=== PATIENT | female | born 1960 | race Caucasian/White ===

== ENCOUNTER 2022-09-04 09:40 | Outpatient (RCR) | payer MEDICARE, SELFPAY | END 2022-09-06 11:51 | disposition home or self-care (01) | LOC: PT 09:40 | PROVIDERS: PCP Nurse Practitioner; Visit Provider Anesthesiology Pain Medicine | DX: S93.621D Sprain of tarsometatarsal ligament of right foot, subsequent encounter (principal); M79.671 Pain in right foot | CPT/HCPCS: 97035; 97110; 97113; 97140; 97162; 97530; G0283 ==

== ENCOUNTER 2022-09-04 12:23 | Outpatient (OUT) | payer MEDICARE, SELFPAY ==
--- NOTE | 2022-09-04 12:52 | PM.CN ---
Consult Note: HPI Data of Consult Patient: known to practice within the last 3 years Consult date: 09/04/22 Requesting Physician: ARIAN JOHNSON NP Primary Care Provider: Adelaida Carrion Consult Narrative Reason for consult: low back pain Narrative: Nasim is here for f/u to MBB lumbar area done 08/08/22. She received 80% relief of pain with increased function for several hours after procedure. She would like to proceed with the RFA. No new sensorimotor sx or bowel or bladder issues. cc:: CC: ARIAN JOHNSON NP Review of Systems ROS Status of ROS 10 or more systems reviewed and unremarkable except as noted in history and below Exam Constitutional: Common normals: no apparent distress, average body habitus, oriented x3, no limitations, healthy appearing, alert and well nourished General appearance: cooperative, comfortable and well developed Nutritional appearance: overweight Orientation/consciousness: Yes awake, Yes oriented to person, Yes oriented to place and Yes oriented to time HENMT: Common normals: normocephalic and head/scalp atraumatic Head and scalp: normal to inspection Nose: external nose normal Mouth: oral and palatal mucosa normal Neck & C-Spine: Common normals: full ROM General: normal visual inspection Respiratory: Common normals: normal respiratory effort, no retractions and no use of accessory muscles Effort & inspection: able to speak in complete sentences Back & Pelvis: Lumbar spine/lower back: normal to inspection, pain with ROM, paraspinal muscle tenderness, paraspinal muscle spasm, straight leg raise positive right and other soft tissue findings (positive facet loading right, no radiculopathy) Sacroiliac joints: SI joints normal Extremity: Common normals: normal to inspection, full ROM and normal capillary refill Other: muscle strength bilat LE 5/5 with intact sensation Skin: Common normals: no rashes or lesions noted and no wounds Assessment and Plan Assessment and Plan (1) Lumbar spondylosis: (2) Muscle spasm: Plan schedule thermal RFA right lumbar L4/5, L5/S1 under fluoroscopy
== END 2022-09-04 12:24 ==
PROVIDERS: PCP Nurse Practitioner; Visit Provider Nurse Practitioner
DX: M47.816 Spondylosis without myelopathy or radiculopathy, lumbar region (principal); M62.838 Other muscle spasm
CPT/HCPCS: G0463

== ENCOUNTER 2022-09-06 00:06 | Emergency (ER) | payer MEDICARE, SELFPAY ==
[2022-09-06 00:13] VITALS: BP 148/81; PULSE 81; RESP 18; TEMP 36.7; O2SAT 98
--- NOTE | 2022-09-06 00:20 | XR_ITS ---
The [address] [address] Patient Name: MICHELLE BE MRN: [id number] date: 1960 Sex: F Assigned Patient Location: ER Current Patient Location: ER Accession/Order Number: [id number] Exam Date: 09/06/2022 00:45 Report Date: 09/06/2022 01:31 At the request of: GILMER NEVES Procedure: XR foot RT min 3V PLAIN FILM FOOT RIGHT HISTORY: 61-year-old female with right foot pain TECHNIQUE: 3 views of the foot are submitted for review. COMPARISON: None available FINDINGS: Evaluation for Lisfranc injury is limited given the lack of standing views. Degenerative changes seen involving joint spaces. Bone mineralization is within normal. Soft tissues are edematous, greatest overlying the metatarsophalangeal joint space of the great toe. There is spurring of the inferior calcaneus as well as the Achilles tendon insertion site. There is no evidence for acute fracture. IMPRESSION: 1. Soft tissue swelling greatest overlying the metatarsophalangeal joint space of the right great toe. 2. No plain film evidence for acute fracture to the foot. Electronically authenticated by: POLO BARLOW Date: 09/06/2022 01:31
--- NOTE | 2022-09-06 02:08 | ED.LOWEXI1 ---
HPI - Extremity Injury (Lower) General Stated Complaint: RIGHT FOOT INJURY Time Seen by Provider: 09/06/22 02:08 Source: patient Mode of arrival: walk-in Limitations: no limitations History of Present Illness HPI Narrative: history of arthritis of her right foot. Walking down the stairs in her home and hyper plantar flexed the foot. [place] a pop now has pain and swelling. Increased pain with weight bearing. No numbness or weakness complaint: Reports foot injury Onset (ago): hour(s) Injury: Right: foot Type of Injury: Reports hyperflexion Related Data Allergies Allergy/AdvReac Type Severity Reaction Status Date / Time levetiracetam [From Keppra] Allergy Severe Verified 09/06/22 00:19 adhesive Allergy Intermediate Blister Verified 09/06/22 00:19 Penicillins Allergy Intermediate Verified 09/06/22 00:19 tetracycline Allergy Intermediate Verified 09/06/22 00:19 milnacipran [From Savella] AdvReac Intermediate Agitated Verified 09/06/22 00:19 prochlorperazine AdvReac Intermediate Agitated Verified 09/06/22 00:19 [From Compazine] Review of Systems ROS Status of ROS 10 or more systems reviewed and unremarkable except as noted in history and below [facility] Medical History (Updated 09/06/22 @ 02:18 by Torin Slater MD) Surgical History (Updated 09/04/22 @ 14:46 by Tamika Deng) Social History Smoking status: Former smoker Exam Constitutional: Vital Signs - 24 hr 09/06/22 00:13 Temperature 98.1 F Pulse Rate [Monito r] 81 Respiratory Rate 18 Blood Pressure [Le ft Arm] 148/81 H Pulse Oximetry 98 Oxygen Delivery Me thod Room Air Common normals: no apparent distress HENMT: Common normals: normocephalic Eye: Common normals: EOMs intact bilaterally and conjunctivae normal Neck & C-Spine: Common normals: full ROM Chest: Common normals: inspection of chest normal Respiratory: Common normals: normal respiratory effort and clear to auscultation bilaterally Cardio: Common normals: regular rhythm GI: Common normals: Normal to inspection, nondistended, normoactive bowel sounds present Extremity: Other: mild swelling dorsum right foot. mild tenderness Neuro: Common normals: oriented x3 and CN's II-XII intact bilaterally Psych: Common normals: mental status grossly normal Skin: Common normals: no rashes or lesions noted and no wounds Course Vital Signs Vital signs: Vital Signs Temperature 98.1 F 09/06/22 00:13 Pulse Rate 81 09/06/22 00:13 Respiratory Rate 18 09/06/22 00:13 Blood Pressure 148/81 H 09/06/22 00:13 Pulse Oximetry 98 09/06/22 00:13 Oxygen Delivery Method Room Air 09/06/22 00:13 Temperature 98.1 F 09/06/22 00:13 Pulse Rate 81 09/06/22 00:13 Respiratory Rate 18 09/06/22 00:13 Blood Pressure 148/81 H 09/06/22 00:13 Pulse Oximetry 98 09/06/22 00:13 Oxygen Delivery Method Room Air 09/06/22 00:13 MDM - Extremity Injury (Lower) MDM Narrative Medical decision making narrative: patient presents after hyper extension injury to the right foot. Has swelling of the foot. Increased pain with weight bearing. xray without fracture. Patient placed in a cam boot and provided with crutches to assist ambulation. Discharged home to follow up with her PCP Discharge Plan Discharge Clinical Impression: Right foot sprain Mode of Transportation: Private Vehicle Instructions: Foot Sprain (ED) Stand Alone Forms: Portal Instructions Referrals: Adelaida Carrion [Primary Care Provider] - 1 week Follow Up Appointments: follow up with your family doctor next week
[2022-09-06] MEDS: KETOROLAC TROMETHAMINE 60 MG/2 ML VIAL IM (03:13)
--- NOTE | 2022-09-06 03:27 | PC.NURSE ---
Patient medicated. Then surgical boot placed and crutch training completed. Circulation intact prior to and after boot placement. Explained follow up and elevation with ice applied.
== END 2022-09-06 03:29 | disposition home or self-care (01) ==
PROVIDERS: Emergency Provider Internal Medicine; PCP Nurse Practitioner
DX: S93.601A Unspecified sprain of right foot, initial encounter (principal); X50.9XXA Other and unspecified overexertion or strenuous movements or postures, initial encounter; Z87.891 Personal history of nicotine dependence
CPT/HCPCS: 73630; 96372; 99284

== ENCOUNTER 2022-09-10 09:32 | Outpatient (OUT) | payer MEDICARE, SELFPAY ==
--- NOTE | 2022-09-10 10:12 | XR_ITS ---
The [address] [address] Patient Name: MICHELLE BE MRN: [id number] date: 1960 Sex: F Assigned Patient Location: [facility] Current Patient Location: Accession/Order Number: [id number] Exam Date: 09/10/2022 10:12 Report Date: 09/10/2022 16:16 At the request of: BRIDGETTE MACEDO Procedure: XR foot RT min 3V PROCEDURE: XR foot RT min 3V HISTORY: RIGHT FOOT PAIN ; medial forefoot pain after falling; follow-up COMPARISON: XR foot right 09/06/2022 FINDINGS: BONES:No fracture, dislocation, or significant degenerative joint disease. Calcaneal degenerative enthesophytes. SOFT TISSUES:No visible soft tissue swelling. EFFUSION:None visible. OTHER: Negative. IMPRESSION: 1. No acute bone abnormality or significant degenerative changes. Electronically authenticated by: KINGSLEY CLEMENTS Date: 09/10/2022 16:16
== END 2022-09-10 09:33 ==
LOC: RAD 09:32
PROVIDERS: PCP Nurse Practitioner; Visit Provider Podiatrist Foot & Ankle Surgery
DX: M79.671 Pain in right foot (principal)
CPT/HCPCS: 73630

== ENCOUNTER 2022-09-15 10:06 | Outpatient (OUT) | payer MEDICARE, SELFPAY ==
--- NOTE | 2022-09-15 10:14 | MM_ITS ---
Patient: MICHELLE BE Exam Date: 09/15/2022 : 1960 Gender:F Ordering : LIVIER Adelaida Carrion DIRECTOR COLLEGE Admission #: [id number] Family : Order #: [id number] CLICK HERE TO VIEW EXAM RADIOLOGY REPORT PROCEDURE: MM TOMOSYNTHESIS SCREENING BI COMPARISON: MG MAMM SCREEN 3D BHUMI CAD, 06/20/2021. MG MAMM SCREEN BHUMI W CAD, 05/18/2020. MG MAMM SCREEN BHUMI W CAD, 05/10/2019. MG MAMM BHUMI SCRN W CAD DIG, 02/15/2013. INDICATIONS: Screening mammogram (Z12.31) Calculator Name NCI Breast Cancer Risk Assessment Tool 5 Year Breast Cancer Risk 2.10% Lifetime Breast Cancer Risk 10.60% Personal Breast Cancer No Personal Ovarian Cancer No Treatments None Family Cancers None LOCATION: [facility] BREAST COMPOSITION: Scattered areas fibroglandular density. FINDINGS: DIAGNOSTIC CATEGORY 2--BENIGN FINDING: RIGHT BREAST: No significant suspicious finding. Scattered benign-appearing calcifications are present. No significant change has occurred. LEFT BREAST: No significant suspicious finding. Scattered benign-appearing calcifications are present. No significant change has occurred. RECOMMENDATIONS: ROUTINE MAMMOGRAM AND CLINICAL EVALUATION IN 12 MONTHS. PLEASE NOTE: A NORMAL MAMMOGRAM DOES NOT EXCLUDE THE POSSIBILITY OF BREAST CANCER. A CLINICALLY SUSPICIOUS PALPABLE LUMP SHOULD BE BIOPSIED. Dictated by: Jace Dhillon M.D. on 09/16/2022 at 13:43 Approved by: Jace Dhillon M.D. on 09/16/2022 at 13:47
--- NOTE | 2022-09-15 10:14 | XR_ITS ---
[address] [address] Patient Name: MICHELLE BE MRN: [id number] date: 1960 Sex: F Assigned Patient Location: [facility] Current Patient Location: [facility] Accession/Order Number: [id number] Exam Date: 09/15/2022 10:35 Report Date: 09/15/2022 12:08 At the request of: EDUAR MOYER Procedure: XR DEXA axial skeleton EXAMINATION: XR DEXA axial skeleton HISTORY: Osteoporosis (M81.0) COMPARISON: DEXA bone densitometry 05/18/2020 TECHNIQUE: Dual-energy X-ray absorptiometry (DXA) was performed. FINDINGS: FOREARM ANALYSIS: Average bone mineral density is 0.901 g/cm2. T-score (standard deviation relative to young adult mean): -1.0 . -7.1% change since prior study. HIP ANALYSIS: Lowest bone mineral density is within the femoral neck, 0.923 g/cm2. T-score (standard deviation relative to young adult mean): -0.8 . +1.9% change since prior study. IMPRESSION: World [employer] Organization Classification: Normal - Low Fracture Risk Electronically authenticated by: KINGSLEY CLEMENTS Date: 09/15/2022 12:08
== END 2022-09-15 10:07 ==
LOC: RAD 10:06
PROVIDERS: PCP Nurse Practitioner; Visit Provider Nurse Practitioner
DX: Z12.31 Encounter for screening mammogram for malignant neoplasm of breast (principal); M81.0 Age-related osteoporosis without current pathological fracture
CPT/HCPCS: 77063; 77067; 77080

== ENCOUNTER 2022-09-16 09:42 | Outpatient (RCR) | payer MEDICARE, SELFPAY | END 2022-10-29 13:39 | disposition home or self-care (01) | LOC: PT 09:42 | PROVIDERS: PCP Nurse Practitioner; Visit Provider Podiatrist Foot & Ankle Surgery | DX: S93.621D Sprain of tarsometatarsal ligament of right foot, subsequent encounter (principal); M79.671 Pain in right foot | CPT/HCPCS: 97010; 97014; 97035; 97110; 97112; 97140; 97162; 97530; G0283 ==

== ENCOUNTER 2022-10-14 11:11 | Outpatient (OUT) | payer MEDICARE, SELFPAY ==
[2022-10-14 12:36] LABS: Anion Gap 13.9; BUN Creatinine Ratio 17.2; Calcium 9.4 mg/dL (8.5-10.1); Carbon Dioxide 27.1 mmol/L (21.0-32.0); Chloride 105 mmol/L (98-107); Estimated GFR (African America >60 (>=60); Estimated GFR (Non-African Ame >60 (>=60); Glucose 99 mg/dL (74-106); Sodium 141 mmol/L (136-145)
== END 2022-10-14 11:12 | disposition home or self-care (01) ==
LOC: LAB 11:14
PROVIDERS: PCP Nurse Practitioner; Visit Provider Personal Emergency Response Attendant
DX: G47.30 Sleep apnea, unspecified (principal)
CPT/HCPCS: 36415; 80048

== ENCOUNTER 2022-10-15 10:17 | Outpatient (OUT) | payer MEDICARE, SELFPAY ==
--- NOTE | 2022-10-15 | ECG_ITS ---
[facility] Test Date: 2022-10-15 Pat Name: MICHELLE BE Department: Room: - Gender: Female Location Manager: : 1960 Requested By: KALLI HARRY Order Number: [id number] Reading MD: DANII BRODY Measurements Intervals [place] Rate: 69 P: 58 VT: 142 QRS: 70 QRSD: 110 T: 53 QT: 378 QTc: 407 Interpretive Statements SINUS RHYTHM POSSIBLE RIGHT VENTRICULAR CONDUCTION DELAY [RSR (QR) IN V1/V2] No previous ECG available for comparison Electronically Signed On 10-16-2022 7:10:33 EDT by DANII BRODY
== END 2022-10-15 10:18 | disposition home or self-care (01) ==
LOC: CARD 10:19
PROVIDERS: PCP Nurse Practitioner
DX: Z86.73 Personal history of transient ischemic attack (TIA), and cerebral infarction without residual deficits (principal)
CPT/HCPCS: 93005

== ENCOUNTER 2022-11-11 06:46 | Day surgery (SDC) | payer MEDICARE, SELFPAY ==
[2022-11-11 07:22] VITALS: BP 166/93; PULSE 87; RESP 16; TEMP 36.2; O2SAT 98
[2022-11-11] MEDS: 0.9 % SODIUM CHLORIDE 500 ML IV (07:28)
[2022-11-11] MEDS: BUPIVACAINE HCL 0.25% PF 25 MG/10 ML VIAL 4 ML INJ (07:39)
[2022-11-11] MEDS: METHYLPREDNISOLONE ACETATE 40 MG/ML VIAL INJ (07:39)
[2022-11-11] MEDS: LIDOCAINE HCL 2% 400 MG/20 ML MDV 8 ML INJ (07:39)
[2022-11-11 07:55] VITALS: BP 118/82; PULSE 71; RESP 16; TEMP 36.2; O2SAT 97
[2022-11-11 07:59] VITALS: BP 121/76; PULSE 77; RESP 16; TEMP 36.2; O2SAT 98
--- NOTE | 2022-11-11 10:05 | W.PM.PROCNOT ---
Date of procedure: 11/11/22 Pre-op diagnosis: lumbar spondylosis Post-op diagnosis: same Procedure: Right lumbar 4/5, 5/sacral 1 Radiofrequency ablation Under fluoroscopic guidance Rhizotomy was created using radio frequency ablation at 80?C for 90 seconds 1 to 2 lesions created at each site. Post lesioning injection of 2 mL each of 0.25% Marcaine and 2% lidocaine with Depo-Medrol 40mg. 0.5 to 1 mL injected at each site IV in place yes/no If Intravenous fluids: NS at KVO Anesthesia local 2% lidocaine for Anesthesia Other: MAC Timeout process compliant After informed consent obtained.Patient brought to the procedure room placed in the prone position skin overlying the area was prepped and draped in a sterile fashion using betadine. 25 gauge needle was used to create a skin wheal over each of the targeted areas utilizing 2% lidocaine. A rhizotomy needle with a 10 mm active tip was inserted over each of the anesthetized areas and directed towards each of the medial branches accomplished under fluoroscopic guidance. after encountering the same we had positive sensory stimulation, negative motor stimulation was noted. lesions were then created. Post lesioning, steroid solution was injected needles removed. Patient was transferred to recovery room in stable condition to be discharged home after meeting criteria. Anesthesia: MAC Surgeon: Tejal Montaño Condition: stable
== END 2022-11-11 08:14 | disposition home or self-care (01) ==
PROVIDERS: PCP Nurse Practitioner; Visit Provider Anesthesiology Pain Medicine
DX: M47.816 Spondylosis without myelopathy or radiculopathy, lumbar region (principal)
CPT/HCPCS: 64635; 64636; J1030; J2704

== ENCOUNTER 2022-11-16 21:30 | Emergency (ER) | payer MEDICARE, SELFPAY ==
[2022-11-16 21:39] VITALS: BP 138/84; PULSE 100; RESP 16; TEMP 37.2; O2SAT 96; BMI 46.5
--- NOTE | 2022-11-16 22:01 | ECG_ITS ---
[facility] Test Date: 2022-11-16 Pat Name: MICHELLE BE Department: Room: - Gender: Female [place]: : 1960 Requested By: EDUAR MOYER Order Number: [id number] Reading MD: DANII BRODY Measurements Intervals [place] Rate: 92 P: 67 RI: 144 QRS: 70 QRSD: 128 T: 27 QT: 362 QTc: 412 Interpretive Statements 1100 Sinus rhythm 2450 Right bundle branch block 9150 abnormal ECG Compared to ECG 10/15/2022 10:53:29 Right bundle-branch block now present Electronically Signed On 11-17-2022 7:22:00 EDT by DANII BRODY
--- NOTE | 2022-11-16 22:23 | PC.NURSE ---
Called and spoke with Jahaira at the new hot line and was directed to call [facility] for a direct admit d/t the information Jahaira has already taken by talking to pt prior to coming to ER. Called and spoke to charge nurse Karley and was told pt must be interviewed by a counselor before the direct admit can be contacted even though we know pt has suicidal thoughts and means to take her own life at home. Pt is not a new pt to [facility] and Jahaira called back to request a counselor call back to speak with pt so this pt dos not have to sit in this ER all night.
[2022-11-16 22:30] LABS: Amphetamine Screen Urine NEGATIVE (NEGATIVE); Barbiturates Screen Urine NEGATIVE (NEGATIVE); Benzodiazepines Screen Urine NEGATIVE (NEGATIVE); Buprenorphine Screen Urine NEGATIVE (NEGATIVE); Cannabinoid Screen Urine POSITIVE (NEGATIVE); Cocaine Screen Urine NEGATIVE (NEGATIVE); Methadone Screen Urine NEGATIVE (NEGATIVE); Methamphetamines Screen Urine NEGATIVE (NEGATIVE); Opiate Screen Urine NEGATIVE (NEGATIVE); Oxycodone Screen Urine NEGATIVE (NEGATIVE); Phencyclidine Screen Urine NEGATIVE (NEGATIVE); Tricyclic Antidepressant Urine NEGATIVE (NEGATIVE)
[2022-11-16 22:44] LABS: Basophils Absolute Auto 0.1 10^3/uL (0.0-0.1); Basophils Percent Auto 0.5 % (0.2-2.0); Eosinophils Absolute Auto 0.1 10^3/uL (0.0-0.7); Eosinophils Percent Auto 0.9 % (0.9-7.0); Hemoglobin 15.2 g/dL (12.0-16.0); Immature Granulocytes Abs Auto 0.07 10^3/uL (0.00-0.03); Immature Granulocytes Pct Auto 0.4 % (0.0-0.5); Lymphocytes Absolute Auto 2.2 10^3/uL (1.2-3.8); Lymphocytes Percent Auto 13.1 % (20.5-60.0); Mean Corpuscular Hemoglobin 28.6 pg (26.7-34.0); Mean Corpuscular Volume 86.5 fL (81.0-99.0); Mean Platelet Volume 10.6 fL (9.5-13.5); Monocytes Absolute Auto 0.8 10^3/uL (0.3-0.8); Monocytes Percent Auto 5.1 % (1.7-12.0); Neutrophils Absolute Auto 13.1 10^3/uL (1.4-6.5); Platelet Count 265 10^3/uL (150-450); Red Blood Count 5.32 10^6/uL (4.20-5.40); White Blood Count 16.4 10^3/uL (4.0-11.0)
[2022-11-16 22:57] LABS: Alanine Aminotransferase 34 U/L (14-59); Albumin Globulin Ratio 1.2; Albumin Level 4.3 g/dL (3.4-5.0); Alkaline Phosphatase 107 U/L (46-116); Aspartate Amino Transferase 28 U/L (15-37); BUN Creatinine Ratio 17.6; Bilirubin Total 0.3 mg/dL (0.2-1.0); Calcium 8.6 mg/dL (8.5-10.1); Carbon Dioxide 22.9 mmol/L (21.0-32.0); Chloride 106 mmol/L (98-107); Estimated GFR (African America >60 (>=60); Estimated GFR (Non-African Ame 52 (>=60); Globulin 3.5 g/dL; Glucose 102 mg/dL (74-106); Potassium 3.9 mmol/L (3.5-5.1); Salicylate <2.8 mg/dL (<=19.9); Sodium 140 mmol/L (136-145); Total Protein 7.8 g/dL (6.4-8.2)
[2022-11-16 22:58] LABS: Acetaminophen <2.0 ug/mL (10.0-30.0); Ethanol <3 mg/dL
--- NOTE | 2022-11-16 23:02 | ED.GENADUL1 ---
HPI - General Adult General Chief complaint: Psychiatric Symptoms Stated complaint: SITUATIONAL CRISIS/SUICIDAL IDEATIONS Time Seen by Provider: 11/16/22 22:00 Source: patient Mode of arrival: walk-in History of Present Illness HPI narrative: The patient has been dealing with depression for a while she mentioned that for the last 24 hours she has been feeling overwhelmed because she has been dealing with a lot of health issues and she have to go to multiple appointments, the patient denies any acute pain she have a history of chronic back pain as well as a recent surgery to her left wrist For the last 24 hours at least the patient has been having thoughts of harming herself and she mentioned that she been dealing with depression since the age of 17, she did not discuss a clear plan but she has been having exacerbation of her depression for the last few days Related Data Home Medications Medication Instructions Recorded Confirmed amlodipine 10 mg tablet (Norvasc) 10 mg PO DAILY 09/10/22 11/11/22 biotin 1 mg capsule 1 mg PO DAILY 09/10/22 11/11/22 cariprazine 1.5 mg capsule mg 09/10/22 (Vraylar) cariprazine 3 mg capsule (Vraylar) 4.5 mg QDAY 09/10/22 cariprazine 4.5 mg capsule 4.5 mg PO Q24H 09/10/22 11/11/22 (Vraylar) cetirizine 10 mg tablet (24Hour 10 mg PO DAILY PRN allergy symptoms 09/10/22 11/11/22 Allergy) clonazepam 1 mg tablet 1 mg 09/10/22 colchicine (gout) 0.6 mg tablet mg 09/10/22 duloxetine 60 mg capsule,delayed mg PO 09/10/22 release ferrous sulfate 325 mg (65 mg 325 mg PO BID 09/10/22 11/11/22 iron) tablet (FeroSul) gabapentin 600 mg tablet 1,200 mg PO DAILY 09/10/22 11/11/22 (Neurontin) gabapentin 600 mg tablet 600 mg PO DAILY 09/10/22 11/11/22 (Neurontin) losartan 50 mg tablet (Cozaar) 50 mg PO DAILY 09/10/22 11/11/22 magnesium 200 mg tablet 400 mg PO BID 09/10/22 11/11/22 melatonin 12 mg tablet 12 mg PO .HS PRN sleep 09/10/22 11/11/22 omeprazole 20 mg capsule,delayed mg 09/10/22 release pseudoephedrine sulfate 120 mg 120 mg PO BID PRN nasal congestion 09/10/22 11/11/22 tablet,extended release ropinirole 4 mg tablet mg 09/10/22 tizanidine 4 mg tablet mg 09/10/22 trazodone 150 mg tablet mg 09/10/22 zolpidem 10 mg tablet mg 09/10/22 Allergies Allergy/AdvReac Type Severity Reaction Status Date / Time levetiracetam [From Keppra] Allergy Severe Verified 11/11/22 07:31 adhesive Allergy Intermediate Blister Verified 11/11/22 07:31 Penicillins Allergy Intermediate Verified 11/11/22 07:31 tetracycline Allergy Intermediate Verified 11/11/22 07:31 milnacipran [From Savella] AdvReac Intermediate Agitated Verified 11/11/22 07:31 prochlorperazine AdvReac Intermediate Agitated Verified 11/11/22 07:31 [From Compazine] Review of Systems ROS Status of ROS 10 or more systems reviewed and unremarkable except as noted in history and below [facility] Medical History (Updated 11/16/22 @ 23:42 by Vicky Vasquez MD) Surgical History (Updated 09/04/22 @ 14:46 by Tamika Deng) Social History Smoking status: Former smoker Exam Narrative Exam Narrative: Nurses notes and vital signs reviewed and patient is not hypoxic. General: Well-appearing and in no apparent distress. Skin: Warm, dry, no pallor noted. No rash. Head: Normocephalic, atraumatic. Neck: Supple, non-tender. Eye: Pupils are equal, round and EOMI. No scleral icterus. Ears, Nose, Mouth, and Throat: TM are clear, no nasal mucosal hypertrophy. Oral mucosa is moist, no posterior oropharynx erythema, uvula is mid-line Cardiovascular: Regular Rate and Rhythm without murmur, gallop or rub. Respiratory: No accessory muscle use or respiratory distress. Lungs are clear to auscultation, no wheezing, rales or rhonchi Chest Wall: no tenderness Back: No midline thoracic or lumbar vertebral tenderness. No CVA tenderness Musculoskeletal: normal ROM, no calf or popliteal tenderness, no lower extremity edema/swelling, healing wound on the radial aspect of the wrist no signs of infection GI: Abdomen is soft, non-distended. Normal bowel sounds. No masses appreciated. No tenderness to palpation. No rebound, guarding, or rigidity noted. Neurological: A&O x4. No cranial nerve dysfunction observed. No truncal ataxia. Moves all extremities. Sensation intact. Psychiatric: Cooperative and interactive. Normal mood and affect. Constitutional Vital Signs, click to edit/add: Last Vital Signs Temp 98.9 F 11/16/22 21:39 Pulse 100 H 11/16/22 21:39 Resp 16 11/16/22 21:39 BP 138/84 11/16/22 21:39 Pulse Ox 96 11/16/22 21:39 O2 Del Method Room Air 11/16/22 21:58 Course Vital Signs Vital signs: Vital Signs Temperature 98.9 F 11/16/22 21:39 Pulse Rate 100 H 11/16/22 21:39 Respiratory Rate 16 11/16/22 21:39 Blood Pressure 138/84 11/16/22 21:39 Pulse Oximetry 96 11/16/22 21:39 Oxygen Delivery Method Room Air 11/16/22 21:39 Temperature 98.9 F 11/16/22 21:39 Pulse Rate 100 H 11/16/22 21:39 Respiratory Rate 16 11/16/22 21:39 Blood Pressure 138/84 11/16/22 21:39 Pulse Oximetry 96 11/16/22 21:39 Oxygen Delivery Method Room Air 11/16/22 21:58 Medical Decision Making [facility] Narrative Medical decision making narrative: EKG showing sinus rhythm with a heart rate of [address] elevation or depression The patient is work-up did not show any acute significant pathology except for mild acute kidney injury and leukocytosis which could be reactive secondary to her surgery recently the patient right now is medically clear for psychiatric evaluation She was accepted by in [facility] inpatient psychiatric care The patient will be driven by her who is ok with the plan of care Lab Data Labs: Lab Results 11/16/22 11/16/22 Range/Units 22:10 22:37 WBC 16.4 H (4.0-11.0) 10^3/uL RBC 5.32 (4.20-5.40) 10^6/uL Hgb 15.2 (12.0-16.0) g/dL Hct 46.0 (36.0-48.0) % MCV 86.5 (81.0-99.0) fL MCH 28.6 (26.7-34.0) pg MCHC 33.0 (29.9-35.2) g/dL RDW 14.0 (11.0-15.0) % Plt Count 265 (150-450) 10^3/uL MPV 10.6 (9.5-13.5) fL Neut % (Auto) 80.0 H (43.0-75.0) % Lymph % (Auto) 13.1 L (20.5-60.0) % [place] % (Auto) 5.1 (1.7-12.0) % Eos % (Auto) 0.9 (0.9-7.0) % Baso % (Auto) 0.5 (0.2-2.0) % Neut # (Auto) 13.1 H (1.4-6.5) 10^3/uL Lymph # (Auto) 2.2 (1.2-3.8) 10^3/uL [place] # (Auto) 0.8 (0.3-0.8) 10^3/uL Eos # (Auto) 0.1 (0.0-0.7) 10^3/uL Baso # (Auto) 0.1 (0.0-0.1) 10^3/uL Abs Immat Gran (auto) 0.07 H (0.00-0.03) 10^3/uL Imm/Tot Granulo (auto) 0.4 (0.0-0.5) % Sodium 140 (136-145) mmol/L Potassium 3.9 (3.5-5.1) mmol/L Chloride 106 (98-107) mmol/L Carbon Dioxide 22.9 (21.0-32.0) mmol/L Anion Gap 15.0 BUN 19.0 H (7.0-18.0) mg/dL Creatinine 1.08 H (0.55-1.02) mg/dL Est GFR ( Amer) >60 (>=60) Est GFR (Non-Af Amer) 52 L (>=60) BUN/Creatinine Ratio 17.6 Glucose 102 (74-106) mg/dL Calcium 8.6 (8.5-10.1) mg/dL Total Bilirubin 0.3 (0.2-1.0) mg/dL AST 28 (15-37) U/L ALT 34 (14-59) U/L Alkaline Phosphatase 107 (46-116) U/L Total Protein 7.8 (6.4-8.2) g/dL Albumin 4.3 (3.4-5.0) g/dL Globulin 3.5 g/dL Albumin/Globulin Ratio 1.2 Salicylates <2.8 (<=19.9) mg/dL Urine Opiates Screen Negative (NEGATIVE) Ur Buprenorphine Scrn Negative (NEGATIVE) Ur Oxycodone Screen Negative (NEGATIVE) Urine Methadone Screen Negative (NEGATIVE) Ur Propoxyphene Screen Negative (NEGATIVE) Acetaminophen <2.0 L (10.0-30.0) ug/mL Ur Barbiturates Screen Negative (NEGATIVE) U Tricyclic Antidepress Negative (NEGATIVE) Ur Phencyclidine Scrn Negative (NEGATIVE) Ur Amphetamines Screen Negative (NEGATIVE) U Methamphetamines Scrn Negative (NEGATIVE) U Benzodiazepines Scrn Negative (NEGATIVE) Urine Cocaine Screen Negative (NEGATIVE) U Cannabinoids Screen Positive A (NEGATIVE) Ethanol Quant <3 mg/dL Discharge Plan Discharge Chief Complaint: Psychiatric Symptoms Clinical Impression: Bipolar depression Patient Disposition: [facility] Time of Disposition Decision: 23:41 Discharge Location: [facility] Condition: Good Mode of Transportation: Private Vehicle
--- NOTE | 2022-11-16 23:08 | PC.NURSE ---
pt states after talking to Janelle at [facility] that Janelle plans to talk to [facility] for an admission, will wait for Janelle to notify this nurse of plan. 1:1 remains
--- NOTE | 2022-11-17 00:03 | PC.NURSE ---
Pt accepted and transfer paperwork complete to send with pt to [facility]. given pt's necklace to hold while pt is in treatment. Personal clothes given back to pt and pt's taking pt to [facility] via private car.
--- NOTE | 2022-11-17 01:30 | PC.NURSE ---
faxed pt's old medical history to Charge nurse Sapna at [phone] per her request for their records
== END 2022-11-17 00:05 ==
PROVIDERS: Emergency Provider Emergency Medicine; PCP Nurse Practitioner
DX: F31.9 Bipolar disorder, unspecified (principal); R45.851 Suicidal ideations; Z79.899 Other long term (current) drug therapy; Z87.891 Personal history of nicotine dependence
CPT/HCPCS: 36415; 80053; 80179; 80307; 80320; 80329; 85025; 93005; 99285

== ENCOUNTER 2022-12-11 11:08 | Outpatient (OUT) | payer MEDICARE, SELFPAY ==
--- NOTE | 2022-12-11 11:19 | PM.CN ---
Consult Note: HPI Data of Consult Patient: known to practice within the last 3 years Requesting Physician: Bhakti Culp NP Primary Care Provider: Adelaida Carrion Consult Narrative Reason for consult: f/u Narrative: Nasim Ingram a pleasant 62 year old female presents for evaluation and management of chronic low back pain worse on the left side, recently underwent Right lumbar 4/5, 5/sacral 1 RFA with 75% pain relief and functional improvement. She is starting PT for core strengthening soon. Today rating pain 4/10 cc:: CC: Bhakti Culp NP Review of Systems ROS Status of ROS 10 or more systems reviewed and unremarkable except as noted in history and below Musculoskeletal Reports: back pain PFSH PFS Medical History Surgical History Social History Smoking status: Former smoker Meds Home Medications and Allergies Home Medications Medication Instructions Recorded Confirmed Type amlodipine 10 mg tablet (Norvasc) 10 mg PO DAILY 09/10/22 11/11/22 History biotin 1 mg capsule 1 mg PO DAILY 09/10/22 11/11/22 History cariprazine 1.5 mg capsule mg 09/10/22 History (Vraylar) cariprazine 3 mg capsule (Vraylar) 4.5 mg QDAY 09/10/22 History cariprazine 4.5 mg capsule 4.5 mg PO Q24H 09/10/22 11/11/22 History (Vraylar) cetirizine 10 mg tablet (24Hour 10 mg PO DAILY PRN allergy symptoms 09/10/22 11/11/22 History Allergy) clonazepam 1 mg tablet 1 mg 09/10/22 History colchicine (gout) 0.6 mg tablet mg 09/10/22 History duloxetine 60 mg capsule,delayed mg PO 09/10/22 History release ferrous sulfate 325 mg (65 mg 325 mg PO BID 09/10/22 11/11/22 History iron) tablet (FeroSul) gabapentin 600 mg tablet 1,200 mg PO DAILY 09/10/22 11/11/22 History (Neurontin) gabapentin 600 mg tablet 600 mg PO DAILY 09/10/22 11/11/22 History (Neurontin) losartan 50 mg tablet (Cozaar) 50 mg PO DAILY 09/10/22 11/11/22 History magnesium 200 mg tablet 400 mg PO BID 09/10/22 11/11/22 History melatonin 12 mg tablet 12 mg PO .HS PRN sleep 09/10/22 11/11/22 History omeprazole 20 mg capsule,delayed mg 09/10/22 History release pseudoephedrine sulfate 120 mg 120 mg PO BID PRN nasal congestion 09/10/22 11/11/22 History tablet,extended release ropinirole 4 mg tablet mg 09/10/22 History tizanidine 4 mg tablet mg 09/10/22 History trazodone 150 mg tablet mg 09/10/22 History zolpidem 10 mg tablet mg 09/10/22 History Allergies Allergy/AdvReac Type Severity Reaction Status Date / Time levetiracetam [From [facility]] Allergy Severe Verified 11/11/22 07:31 adhesive Allergy Intermediate Blister Verified 11/11/22 07:31 Penicillins Allergy Intermediate Verified 11/11/22 07:31 tetracycline Allergy Intermediate Verified 11/11/22 07:31 milnacipran [From Savella] AdvReac Intermediate Agitated Verified 11/11/22 07:31 prochlorperazine AdvReac Intermediate Agitated Verified 11/11/22 07:31 [From Compazine] Exam Constitutional Documenting provider has reviewed patient's vital signs: yes Common normals: no apparent distress, oriented x3, healthy appearing, alert and well nourished General appearance: cooperative Nutritional appearance: obese HENMT Common normals: normocephalic, hearing grossly normal bilaterally and moist oral mucous membranes Head and scalp: normocephalic Eye Common normals: PERRL Pupil: PERRL Neck & C-Spine Common normals: full ROM General: normal visual inspection Chest Common normals: inspection of chest normal Respiratory Common normals: normal respiratory effort, no retractions and no use of accessory muscles Back & Pelvis Lumbar spine/lower back: ROM limited and pain with ROM Sacroiliac joints: SI joint(s) abnormal SI joint details: tender to palpation Other: predominately axial low back pain on left side without radiculopathy Extremity Common normals: normal to inspection and full ROM Neuro Common normals: oriented x3, CN's II-XII intact bilaterally, moves all extremities, no focal motor deficits, no sensory deficits noted and deep tendon reflexes 2+ bilaterally Sensorium/orientation: alert Gait (neuro): normal gait Motor exam: strength 5/5 throughout and no movement abnormalities noted Psych Common normals: mental status grossly normal, thought process normal, cooperative, affect normal, speech normal and activity/motor behavior normal Speech: normal speech Thought process: normal thought process Results Additional Findings Additional findings: I have checked an OARRS report on this patient today and there are no aberrancies noted in the prescribing history.?? A drug screen was completed and reviewed within the last year, and if there has not been a drug screen completed we ordered one today to monitor higher risk, state monitored pain medication use. As part of providing excellent, safe, comprehensive care, the following was completed at our patient's visit: 1. A medication reconciliation and review to ensure accurate knowledge of current/active medications, including asking our patients to inform us about any [id number] medications or herbal remedies/nutritional supplements/alternative remedies. 2. A review to specifically ensure our patients have had annual screening for: elevated body mass index (BMI), tobacco use, screening for depression, and screening for unhealthy alcohol use. When screening is concerning, patients are provided with education and the specific recommendation to discuss the concerning health issue and treatment options with their primary care provider. Assessment and Plan Assessment and Plan (1) Lumbar spondylosis: Assessment and Plan: The patient has had over 3 months of moderate to severe low back pain with functional impairment and inadequate response to conservative care including NSAIDS (unless there are contraindication such as concurrent blood thinners), multiple oral or topical pain medications, and home exercise program/physical therapy.? I have reviewed the imaging of the lumbar spine and no red flags were identified.? The imaging reveals radiographic findings consistent with lumbar facet arthropathy We discussed the risks and benefits of the procedure with the patient The procedure will be completed with fluoroscopic guidance.? (2) Muscle spasm: Plan left L4/5 L5/S1 MBB under fluoroscopy x2 working towards thermal RFA continue current medications f/u after injection
== END 2022-12-11 11:09 | disposition home or self-care (01) ==
LOC: PM 11:08
PROVIDERS: PCP Nurse Practitioner; Visit Provider Nurse Practitioner
DX: M47.816 Spondylosis without myelopathy or radiculopathy, lumbar region (principal)
CPT/HCPCS: G0463

== ENCOUNTER 2022-12-17 20:25 | Outpatient (OUT) | payer MEDICARE, SELFPAY | END 2022-12-17 20:26 | disposition home or self-care (01) | LOC: SLEEP 20:25 | PROVIDERS: PCP Nurse Practitioner; Visit Provider Nurse Practitioner | DX: G47.33 Obstructive sleep apnea (adult) (pediatric) (principal) | CPT/HCPCS: 95810 ==

== ENCOUNTER 2023-01-06 06:59 | Day surgery (SDC) | payer MEDICARE, SELFPAY ==
[2023-01-06 07:56] VITALS: BP 145/92; PULSE 88; RESP 16; TEMP 36.6; O2SAT 96
[2023-01-06] MEDS: BUPIVACAINE HCL 0.25% PF 25 MG/10 ML VIAL INJ (08:53)
--- NOTE | 2023-01-06 08:59 | P.ON_ITS ---
Date of procedure: 01/06/23 Pre-op diagnosis: Lumbar Spondylosis Post-op diagnosis: same as pre-op Procedure: Left lumbar 4,5, 5,sacral 1 medial branch block Under fluoroscopic guidance Solution injected: 2millilitersMarcaine 0.25% Anesthesia :none Immediate complications none Time out process compliant After informed consent obtained from the patient placed in the Prone proposition . area was prepped and draped in a sterile fashion using Cloraprep .25 gauge spinal needle inserted over each of the above mentioned target areas . [place] were directed towards the target under fluoroscopic guidance . after encountering each of the targets , no indication of intravascular intraneuronal or intrathecal needle tip placement. Then 0 .5 to 1 Milliliter was injected at each level. [place] removed postoperatively. patient transferred to recovery in stable condition to be discharged home after meeting criteria Anesthesia: Local Surgeon: Tejal Montaño Condition: stable
[2023-01-06 14:43] VITALS: BP 133/79; BP 135/79; PULSE 72; PULSE 73; RESP 16; O2SAT 94
== END 2023-01-06 08:58 | disposition home or self-care (01) ==
PROVIDERS: PCP Nurse Practitioner; Visit Provider Anesthesiology Pain Medicine
DX: M47.816 Spondylosis without myelopathy or radiculopathy, lumbar region (principal)
CPT/HCPCS: 64493; 64494

== ENCOUNTER 2023-01-15 10:42 | Outpatient (OUT) | payer MEDICARE, SELFPAY ==
--- NOTE | 2023-01-15 11:31 | P.CN_ITS ---
Consult Note: HPI Data of Consult Patient: known to practice within the last 3 years Requesting Physician: Bhakti Culp NP Primary Care Provider: Adelaida Carrion Consult Narrative Reason for consult: F/u Narrative: Nasim Ingram a pleasant 62 year old female presents for evaluation and management of chronic left low back pain. Patient rating pain 3/10 today, feels like an ache. Pain is worse with standing walking housework activity, improved with sleep and sitting. Patient would like to discuss MBB #2 at left L4-5 L5-S1 working towards thermal RFA. cc:: CC: Bhakti Culp NP Review of Systems ROS Status of ROS 10 or more systems reviewed and unremarkable except as noted in history and below Musculoskeletal Reports: back pain PFSH PFSH Medical History Surgical History H/O breast biopsy ?Z98.890 - Other specified postprocedural states (ICD-10) History of appendectomy ?Z90.49 - Acquired absence of other specified parts of digestive tract (ICD- 10) History of cholecystectomy ?Z90.49 - Acquired absence of other specified parts of digestive tract (ICD- 10) History of hemilaminectomy ?Z98.890 - Other specified postprocedural states (ICD-10) History of tonsillectomy and adenoidectomy ?Z90.89 - Acquired absence of other organs (ICD-10) Hx of laparoscopic gastric banding ?Z98.84 - Bariatric surgery status (ICD-10) Previous section ?Z98.891 - History of uterine scar from previous surgery (ICD-10) S/P dilatation and curettage ?Z98.890 - Other specified postprocedural states (ICD-10) S/P ORIF (open reduction internal fixation) fracture ?Z98.890 - Other specified postprocedural states (ICD-10) ?Z87.81 - Personal history of (healed) traumatic fracture (ICD-10) Social History Smoking status: Former smoker Meds Home Medications and Allergies Home Medications Medication Instructions Recorded Confirmed Type amlodipine 10 mg tablet (Norvasc) 10 mg PO DAILY 09/10/22 01/06/23 History biotin 1 mg capsule 1 mg PO DAILY 09/10/22 01/06/23 History cariprazine 4.5 mg capsule 4.5 mg PO Q24H 09/10/22 01/06/23 History (Vraylar) cetirizine 10 mg tablet (24Hour 10 mg PO DAILY PRN allergy symptoms 09/10/22 01/06/23 History Allergy) clonazepam 1 mg tablet 1 mg 09/10/22 History colchicine (gout) 0.6 mg tablet mg 09/10/22 History duloxetine 60 mg capsule,delayed mg PO 09/10/22 History release ferrous sulfate 325 mg (65 mg 325 mg PO BID 09/10/22 01/06/23 History iron) tablet (FeroSul) gabapentin 600 mg tablet 1,200 mg PO DAILY 09/10/22 01/06/23 History (Neurontin) gabapentin 600 mg tablet 600 mg PO DAILY 09/10/22 01/06/23 History (Neurontin) losartan 50 mg tablet (Cozaar) 50 mg PO DAILY 09/10/22 01/06/23 History magnesium 200 mg tablet 400 mg PO BID 09/10/22 01/06/23 History melatonin 12 mg tablet 12 mg PO .HS PRN sleep 09/10/22 01/06/23 History omeprazole 20 mg capsule,delayed mg 09/10/22 History release ropinirole 4 mg tablet mg 09/10/22 History tizanidine 4 mg tablet mg 09/10/22 History trazodone 150 mg tablet mg 09/10/22 History zolpidem 10 mg tablet mg 09/10/22 History olanzapine 5 mg tablet (Zyprexa) 5 mg PO DAILY PRN anxiety 01/06/23 01/06/23 History Allergies Allergy/AdvReac Type Severity Reaction Status Date / Time levetiracetam [From [facility]era] Allergy Severe Verified 01/06/23 07:54 adhesive Allergy Intermediate Blister Verified 01/06/23 07:54 Penicillins Allergy Intermediate Verified 01/06/23 07:54 tetracycline Allergy Intermediate Verified 01/06/23 07:54 milnacipran [From Savella] AdvReac Intermediate Agitated Verified 01/06/23 07:54 prochlorperazine AdvReac Intermediate Agitated Verified 01/06/23 07:54 [From Compazine] Exam Constitutional Documenting provider has reviewed patient's vital signs: yes Common normals: no apparent distress, oriented x3, healthy appearing, alert and well nourished General appearance: cooperative Nutritional appearance: obese HENMT Common normals: normocephalic, hearing grossly normal bilaterally and moist oral mucous membranes Head and scalp: normocephalic Eye Common normals: PERRL Pupil: PERRL Neck & C-Spine Common normals: full ROM General: normal visual inspection Chest Common normals: inspection of chest normal Respiratory Common normals: normal respiratory effort, no retractions and no use of accessory muscles Back & Pelvis Lumbar spine/lower back: ROM limited and pain with ROM Sacroiliac joints: SI joint(s) abnormal SI joint details: tender to palpation Other: predominately axial low back pain on left side without radiculopathy positive facet loading Extremity Common normals: normal to inspection and full ROM Neuro Common normals: oriented x3, CN's II-XII intact bilaterally, moves all extremities, no focal motor deficits, no sensory deficits noted and deep tendon reflexes 2+ bilaterally Sensorium/orientation: alert Gait (neuro): normal gait Motor exam: strength 5/5 throughout and no movement abnormalities noted Psych Common normals: mental status grossly normal, thought process normal, cooperative, affect normal, speech normal and activity/motor behavior normal Speech: normal speech Thought process: normal thought process Results Additional Findings Additional findings: I have checked an OARRS report on this patient today and there are no aberrancies noted in the prescribing history.?? A drug screen was completed and reviewed within the last year, and if there has not been a drug screen completed we ordered one today to monitor higher risk, state monitored pain medication use. As part of providing excellent, safe, comprehensive care, the following was completed at our patient's visit: 1. A medication reconciliation and review to ensure accurate knowledge of current/active medications, including asking our patients to inform us about any [id number] medications or herbal remedies/nutritional supplements/alternative remedies. 2. A review to specifically ensure our patients have had annual screening for: elevated body mass index (BMI), tobacco use, screening for depression, and screening for unhealthy alcohol use. When screening is concerning, patients are provided with education and the specific recommendation to discuss the concerning health issue and treatment options with their primary care provider. Assessment and Plan Assessment and Plan (1) Lumbar spondylosis: Assessment and Plan: The patient has had over 3 months of moderate to severe low back pain with functional impairment and inadequate response to conservative care including NSAIDS (unless there are contraindication such as concurrent blood thinners), multiple oral or topical pain medications, and home exercise program/physical therapy.? I have reviewed the imaging of the lumbar spine and no red flags were identified.? The imaging reveals radiographic findings consistent with lumbar facet arthropathy We discussed the risks and benefits of the procedure with the patient The procedure will be completed with fluoroscopic guidance.? (2) Muscle spasm: Plan left L4/5 L5/S1 MBB under fluoroscopy #2 working towards thermal RFA continue current medications f/u after injection
== END 2023-01-15 10:43 | disposition home or self-care (01) ==
LOC: PM 10:42
PROVIDERS: PCP Nurse Practitioner; Visit Provider Nurse Practitioner
DX: M47.816 Spondylosis without myelopathy or radiculopathy, lumbar region (principal); M62.838 Other muscle spasm
CPT/HCPCS: G0463

== ENCOUNTER 2023-01-20 19:20 | Outpatient (OUT) | payer MEDICARE, SELFPAY | END 2023-01-20 19:21 | disposition home or self-care (01) | LOC: SLEEP 19:20 | PROVIDERS: PCP Nurse Practitioner; Visit Provider Nurse Practitioner | DX: G47.33 Obstructive sleep apnea (adult) (pediatric) (principal) | CPT/HCPCS: 95811 ==

== ENCOUNTER 2023-01-28 09:24 | Outpatient (OUT) | payer MEDICARE, SELFPAY ==
[2023-01-28 10:06] LABS: Basophils Absolute Auto 0.1 10^3/uL (0.0-0.1); Eosinophils Absolute Auto 0.2 10^3/uL (0.0-0.7); Eosinophils Percent Auto 2.3 % (0.9-7.0); Estimated Average Glucose 103 mg/dL; Glycohemoglobin A1C 5.2 % (4.5-6.2); Hematocrit 41.3 % (36.0-48.0); Hemoglobin 13.5 g/dL (12.0-16.0); Immature Granulocytes Abs Auto 0.04 10^3/uL (0.00-0.03); Immature Granulocytes Pct Auto 0.4 % (0.0-0.5); Lymphocytes Absolute Auto 2.8 10^3/uL (1.2-3.8); Lymphocytes Percent Auto 30.3 % (20.5-60.0); Mean Corpuscular HGB Conc 32.7 g/dL (29.9-35.2); Mean Corpuscular Hemoglobin 28.7 pg (26.7-34.0); Mean Corpuscular Volume 87.7 fL (81.0-99.0); Mean Platelet Volume 11.1 fL (9.5-13.5); Monocytes Absolute Auto 0.6 10^3/uL (0.3-0.8); Monocytes Percent Auto 6.5 % (1.7-12.0); Neutrophils Absolute Auto 5.4 10^3/uL (1.4-6.5); Neutrophils Percent Auto 59.5 % (43.0-75.0); Platelet Count 309 10^3/uL (150-450); Red Blood Count 4.71 10^6/uL (4.20-5.40); Red Cell Distribution Width 13.4 % (11.0-15.0); White Blood Count 9.1 10^3/uL (4.0-11.0)
[2023-01-28 10:35] LABS: Erythrocyte Sedimentation Rate 31 mm/hr (<=30)
[2023-01-28 10:46] LABS: Anion Gap 12.1; BUN Creatinine Ratio 15.7; Carbon Dioxide 24.8 mmol/L (21.0-32.0); Chloride 104 mmol/L (98-107); Estimated GFR (African America >60 (>=60); Estimated GFR (Non-African Ame 55 (>=60); Free T3 3.39 pg/mL (2.18-3.98); Glucose 115 mg/dL (74-106); Potassium 3.9 mmol/L (3.5-5.1); Sodium 137 mmol/L (136-145); Thyroid Stimulating Hormone 1.417 uIU/mL (0.358-3.740)
[2023-01-28 10:59] LABS: Free T4 1.22 ng/dL (0.76-1.46)
== END 2023-01-28 09:25 | disposition home or self-care (01) ==
LOC: LAB 09:26
PROVIDERS: PCP Nurse Practitioner; Visit Provider Nurse Practitioner
DX: R73.03 Prediabetes (principal); R61 Generalized hyperhidrosis; R73.9 Hyperglycemia, unspecified
CPT/HCPCS: 36415; 80048; 83036; 84439; 84443; 84481; 85025; 85652

== ENCOUNTER 2023-02-10 09:44 | Day surgery (SDC) | payer MEDICARE, SELFPAY ==
[2023-02-10 09:45] VITALS: BP 140/85; PULSE 74; RESP 16; TEMP 36.8; O2SAT 96
[2023-02-10 10:33] VITALS: PULSE 67; RESP 18; O2SAT 97
[2023-02-10] MEDS: BUPIVACAINE HCL 0.25% PF 25 MG/10 ML VIAL 4 ML INJ (10:35)
[2023-02-10 10:36] VITALS: BP 168/88; BP 170/68; PULSE 68; RESP 18; O2SAT 97
--- NOTE | 2023-02-10 10:36 | W.PM.PROCNOT ---
Date of procedure: 02/10/23 Pre-op diagnosis: Lumbar Spondylosis Post-op diagnosis: same as pre-op Procedure: Left Lumbar 4/5, 5/sacral 1 medial branch block Under fluoroscopic guidance Solution injected: 2millilitersMarcaine 0.25% Anesthesia :none Immediate complications none Time out process compliant After informed consent obtained from the patient placed in the Prone proposition . area was prepped and draped in a sterile fashion using Cloraprep .25 gauge spinal needle inserted over each of the above mentioned target areas . [place] were directed towards the target under fluoroscopic guidance . after encountering each of the targets , no indication of intravascular intraneuronal or intrathecal needle tip placement. Then 0 .5 to 1 Milliliter was injected at each level. [place] removed postoperatively. patient transferred to recovery in stable condition to be discharged home after meeting criteria Anesthesia: Local Surgeon: Tejal Montaño Condition: stable
== END 2023-02-10 10:40 | disposition home or self-care (01) ==
LOC: SURGOUT 13:31
PROVIDERS: PCP Nurse Practitioner; Visit Provider Anesthesiology Pain Medicine
DX: M47.816 Spondylosis without myelopathy or radiculopathy, lumbar region (principal)
CPT/HCPCS: 64493; 64494

== ENCOUNTER 2023-02-16 15:01 | Emergency (ER) | payer MEDICARE, SELFPAY ==
[2023-02-16 15:18] VITALS: BP 92/66; PULSE 87; RESP 20; TEMP 36.8; O2SAT 95; BMI 46.3
--- NOTE | 2023-02-16 15:39 | ED_ITS ---
HPI - General Adult General Chief complaint: Nausea/Vomiting/Diarrhea Stated complaint: DIZZINESS/ DIARHEA Time Seen by Provider: 02/16/23 15:14 Source: patient Mode of arrival: Wheelchair Limitations: no limitations History of Present Illness HPI narrative: 62-year-old female presents for diarrhea and concern of dehydration. Diarrhea started this morning and has no blood in it. She's had no recent hospitalizatio ns or antibiotic usage. She has not been around any ill people. She has not had vomiting or nauseous this. She took Imodium at home. Related Data Home Medications Medication Instructions Recorded Confirmed amlodipine 10 mg tablet (Norvasc) 10 mg PO DAILY 09/10/22 02/10/23 biotin 1 mg capsule 1 mg PO DAILY 09/10/22 02/10/23 cariprazine 4.5 mg capsule 4.5 mg PO Q24H 09/10/22 02/10/23 (Vraylar) cetirizine 10 mg tablet (24Hour 10 mg PO DAILY PRN allergy symptoms 09/10/22 02/10/23 Allergy) clonazepam 1 mg tablet 1 mg 09/10/22 duloxetine 60 mg capsule,delayed mg PO 09/10/22 release ferrous sulfate 325 mg (65 mg 325 mg PO BID 09/10/22 02/10/23 iron) tablet (FeroSul) gabapentin 600 mg tablet 1,200 mg PO DAILY 09/10/22 02/10/23 (Neurontin) gabapentin 600 mg tablet 600 mg PO DAILY 09/10/22 02/10/23 (Neurontin) losartan 50 mg tablet (Cozaar) 50 mg PO DAILY 09/10/22 02/10/23 magnesium 200 mg tablet 400 mg PO BID 09/10/22 02/10/23 melatonin 12 mg tablet 12 mg PO .HS PRN sleep 09/10/22 02/10/23 omeprazole 20 mg capsule,delayed mg 09/10/22 release ropinirole 4 mg tablet mg 09/10/22 tizanidine 4 mg tablet mg 09/10/22 trazodone 150 mg tablet mg 09/10/22 zolpidem 10 mg tablet mg 09/10/22 olanzapine 5 mg tablet (Zyprexa) 5 mg PO DAILY PRN anxiety 01/06/23 02/10/23 carvedilol 3.125 mg tablet (Coreg) 3.125 mg PO BID 02/10/23 02/10/23 Allergies Allergy/AdvReac Type Severity Reaction Status Date / Time levetiracetam [From [facility]] Allergy Severe Verified 01/06/23 07:54 adhesive Allergy Intermediate Blister Verified 01/06/23 07:54 Penicillins Allergy Intermediate Verified 01/06/23 07:54 tetracycline Allergy Intermediate Verified 01/06/23 07:54 milnacipran [From Savella] AdvReac Intermediate Agitated Verified 01/06/23 07:54 prochlorperazine AdvReac Intermediate Agitated Verified 01/06/23 07:54 [From Compazine] Review of Systems ROS Narrative A ten point review of systems is negative except as noted above. PFSH PFSH Medical History Surgical History H/O breast biopsy ?Z98.890 - Other specified postprocedural states (ICD-10) History of appendectomy ?Z90.49 - Acquired absence of other specified parts of digestive tract (ICD- 10) History of cholecystectomy ?Z90.49 - Acquired absence of other specified parts of digestive tract (ICD- 10) History of hemilaminectomy ?Z98.890 - Other specified postprocedural states (ICD-10) History of tonsillectomy and adenoidectomy ?Z90.89 - Acquired absence of other organs (ICD-10) Hx of laparoscopic gastric banding ?Z98.84 - Bariatric surgery status (ICD-10) Previous section ?Z98.891 - History of uterine scar from previous surgery (ICD-10) S/P dilatation and curettage ?Z98.890 - Other specified postprocedural states (ICD-10) S/P ORIF (open reduction internal fixation) fracture ?Z98.890 - Other specified postprocedural states (ICD-10) ?Z87.81 - Personal history of (healed) traumatic fracture (ICD-10) Social History Smoking status: Former smoker Exam Narrative Exam Narrative: Nurses note and vital signs reviewed and patient is not hypoxic. General: The patient appears well and in no apparent distress. Patient is resting comfortably on cart. Skin: Warm, dry, no pallor noted. There is no rash noted. Head: Normocephalic, atraumatic Eye: Normal conjunctiva, no drainage Ears, Nose, Mouth, and Throat: oral mucosa is somewhat dry. Nares patent. Cardiovascular: Regular Rate and Rhythm Respiratory: Patient is in no distress, no accessory muscle use, lungs are weston r to auscultation, no wheezing, rales or rhonchi Back: non-tender, no CVA tenderness bilaterally to percussion. GI: soft and nontender Musculoskeletal: The patient has no evidence of calf tenderness, no pitting edema, symmetrical pulses noted bilaterally Neurological: A&O, normal speech Psychiatric: Cooperative Constitutional Vital Signs, click to edit/add: Last Vital Signs Temp 98.3 F 02/16/23 15:18 Pulse 87 02/16/23 15:18 Resp 20 02/16/23 15:18 BP 92/66 02/16/23 15:18 Pulse Ox 95 02/16/23 15:18 O2 Del Method Room Air 02/16/23 15:18 Course Vital Signs Vital signs: Vital Signs Temperature 98.3 F 02/16/23 15:18 Pulse Rate 87 02/16/23 15:18 Respiratory Rate 20 02/16/23 15:18 Blood Pressure 92/66 02/16/23 15:18 Pulse Oximetry 95 02/16/23 15:18 Oxygen Delivery Method Room Air 02/16/23 15:18 Temperature 98.3 F 02/16/23 15:18 Pulse Rate 87 02/16/23 15:18 Respiratory Rate 20 02/16/23 15:18 Blood Pressure 92/66 02/16/23 15:18 Pulse Oximetry 95 02/16/23 15:18 Oxygen Delivery Method Room Air 02/16/23 15:18 Medical Decision Making MDM Narrative Medical decision making narrative: Blood work is appropriate. She was given IV fluids and she was unable to provide a stool specimen for stool culture. Findings were discussed with the patient. Differential Diagnosis Differential Diagnosis: viral gastroenteritis, bacterial gastroenteritis Lab Data Lab results reviewed: Yes I reviewed the patient's lab results Labs: Lab Results 02/16/23 Range/Units 15:54 WBC 8.1 (4.0-11.0) 10^3/uL RBC 4.46 (4.20-5.40) 10^6/uL Hgb 13.0 (12.0-16.0) g/dL Hct 39.8 (36.0-48.0) % MCV 89.2 (81.0-99.0) fL MCH 29.1 (26.7-34.0) pg MCHC 32.7 (29.9-35.2) g/dL RDW 13.8 (11.0-15.0) % Plt Count 303 (150-450) 10^3/uL MPV 11.2 (9.5-13.5) fL Neut % (Auto) 63.1 (43.0-75.0) % Lymph % (Auto) 26.1 (20.5-60.0) % Sandoval % (Auto) 9.1 (1.7-12.0) % Eos % (Auto) 0.9 (0.9-7.0) % Baso % (Auto) 0.7 (0.2-2.0) % Neut # (Auto) 5.1 (1.4-6.5) 10^3/uL Lymph # (Auto) 2.1 (1.2-3.8) 10^3/uL Sandoval # (Auto) 0.7 (0.3-0.8) 10^3/uL Eos # (Auto) 0.1 (0.0-0.7) 10^3/uL Baso # (Auto) 0.1 (0.0-0.1) 10^3/uL Abs Immat Gran (auto) 0.01 (0.00-0.03) 10^3/uL Imm/Tot Granulo (auto) 0.1 (0.0-0.5) % Sodium 138 (136-145) mmol/L Potassium 4.2 (3.5-5.1) mmol/L Chloride 103 (98-107) mmol/L Carbon Dioxide 24.8 (21.0-32.0) mmol/L Anion Gap 14.4 BUN 21.0 H (7.0-18.0) mg/dL Creatinine 1.21 H (0.55-1.02) mg/dL Est GFR ( Amer) 55 L (>=60) Est GFR (Non-Af Amer) 45 L (>=60) BUN/Creatinine Ratio 17.4 Glucose 90 (74-106) mg/dL Calcium 8.8 (8.5-10.1) mg/dL Discharge Plan Discharge Chief Complaint: Nausea/Vomiting/Diarrhea Clinical Impression: Diarrhea Patient Disposition: Home, Self-Care Time of Disposition Decision: 17:54 Condition: Good Mode of Transportation: Private Vehicle Prescriptions / Home Meds: No Action clonazepam 1 mg tablet 1 mg omeprazole 20 mg capsule,delayed release(DR/EC) zolpidem 10 mg tablet ropinirole 4 mg tablet duloxetine 60 mg capsule,delayed release(DR/EC) PO Vraylar 4.5 mg capsule 4.5 mg PO Q24H biotin 1 mg capsule 1 mg PO DAILY ferrous sulfate [FeroSul] 325 mg (65 mg iron) tablet 325 mg PO BID losartan [Cozaar] 50 mg tablet 50 mg PO DAILY magnesium 200 mg tablet 400 mg PO BID melatonin 12 mg tablet 12 mg PO .HS PRN (Reason: sleep) gabapentin [Neurontin] 600 mg tablet 600 mg PO DAILY gabapentin [Neurontin] 600 mg tablet 1,200 mg PO DAILY amlodipine [Norvasc] 10 mg tablet 10 mg PO DAILY cetirizine [24Hour Allergy] 10 mg tablet 10 mg PO DAILY PRN (Reason: allergy symptoms) tizanidine 4 mg tablet trazodone 150 mg tablet carvedilol [Coreg] 3.125 mg tablet 3.125 mg PO BID Rx Instructions: must administer with a meal/food olanzapine [Zyprexa] 5 mg tablet 5 mg PO DAILY PRN (Reason: anxiety) Instructions: Acute Diarrhea (ED) Stand Alone Forms: Portal Instructions Referrals: Adelaida Carrion NP [Primary Care Provider] - 1 week
[2023-02-16] MEDS: 0.9 % SODIUM CHLORIDE 1,000 ML 1000 ML IV ×2 (15:58→16:58)
[2023-02-16 16:03] LABS: Basophils Absolute Auto 0.1 10^3/uL (0.0-0.1); Basophils Percent Auto 0.7 % (0.2-2.0); Eosinophils Absolute Auto 0.1 10^3/uL (0.0-0.7); Eosinophils Percent Auto 0.9 % (0.9-7.0); Hematocrit 39.8 % (36.0-48.0); Immature Granulocytes Abs Auto 0.01 10^3/uL (0.00-0.03); Immature Granulocytes Pct Auto 0.1 % (0.0-0.5); Lymphocytes Absolute Auto 2.1 10^3/uL (1.2-3.8); Lymphocytes Percent Auto 26.1 % (20.5-60.0); Mean Corpuscular HGB Conc 32.7 g/dL (29.9-35.2); Mean Corpuscular Hemoglobin 29.1 pg (26.7-34.0); Mean Corpuscular Volume 89.2 fL (81.0-99.0); Mean Platelet Volume 11.2 fL (9.5-13.5); Monocytes Absolute Auto 0.7 10^3/uL (0.3-0.8); Monocytes Percent Auto 9.1 % (1.7-12.0); Neutrophils Absolute Auto 5.1 10^3/uL (1.4-6.5); Neutrophils Percent Auto 63.1 % (43.0-75.0); Platelet Count 303 10^3/uL (150-450); Red Blood Count 4.46 10^6/uL (4.20-5.40); Red Cell Distribution Width 13.8 % (11.0-15.0); White Blood Count 8.1 10^3/uL (4.0-11.0)
[2023-02-16 16:16] LABS: Anion Gap 14.4; BUN Creatinine Ratio 17.4; Calcium 8.8 mg/dL (8.5-10.1); Carbon Dioxide 24.8 mmol/L (21.0-32.0); Chloride 103 mmol/L (98-107); Estimated GFR (African America 55 (>=60); Estimated GFR (Non-African Ame 45 (>=60); Glucose 90 mg/dL (74-106); Potassium 4.2 mmol/L (3.5-5.1); Sodium 138 mmol/L (136-145)
== END 2023-02-16 18:01 | disposition home or self-care (01) ==
PROVIDERS: Emergency Provider Emergency Medicine; PCP Nurse Practitioner
DX: R19.7 Diarrhea, unspecified (principal); Z79.899 Other long term (current) drug therapy; Z98.890 Other specified postprocedural states; Z90.49 Acquired absence of other specified parts of digestive tract; Z90.89 Acquired absence of other organs; Z98.84 Bariatric surgery status; Z98.891 History of uterine scar from previous surgery; Z87.81 Personal history of (healed) traumatic fracture; Z87.891 Personal history of nicotine dependence
CPT/HCPCS: 36415; 80048; 85025; 87045; 96360; 99284

== ENCOUNTER 2023-02-18 10:23 | Outpatient (OUT) | payer MEDICARE, SELFPAY ==
--- NOTE | 2023-02-18 10:42 | PM.CN ---
Consult Note: HPI Data of Consult Patient: known to practice within the last 3 years Requesting Physician: Bhakti Culp NP Primary Care Provider: Adelaida Carrion Consult Narrative Reason for consult: f/u Narrative: Nasim Ingram a pleasant 62 year old female presents for evaluation and management of chronic low back paion. Today rating pain 3/10 deep ache worse with activity. Patient underwent left L4-5 L5-s1 MBB#2 with 90% pain relief and functional improvement immediately following and 5 hours after the procedure, she was able to stand longer walk further without pain. Here today to discuss thermal RFA cc:: CC: Bhakti Culp NP Review of Systems ROS Status of ROS 10 or more systems reviewed and unremarkable except as noted in history and below Musculoskeletal Reports: back pain PFSH PFSH Medical History Acid reflux ?K21.9 - Gastro-esophageal reflux disease without esophagitis (ICD-10) Bipolar 1 disorder ?F31.9 - Bipolar disorder, unspecified (ICD-10) FH: bariatric surgery ?Z84.89 - Family history of other specified conditions (ICD-10) Fibromyalgia ?M79.7 - Fibromyalgia (ICD-10) Heart murmur ?R01.1 - Cardiac murmur, unspecified (ICD-10) High cholesterol ?E78.00 - Pure hypercholesterolemia, unspecified (ICD-10) Hypertension ?I10 - Essential (primary) hypertension (ICD-10) Low back pain ?M54.50 - Low back pain, unspecified (ICD-10) Neck pain ?M54.2 - Cervicalgia (ICD-10) Obesity ?E66.9 - Obesity, unspecified (ICD-10) Osteoarthritis ?M19.90 - Unspecified osteoarthritis, unspecified site (ICD-10) Sleep apnea ?G47.30 - Sleep apnea, unspecified (ICD-10) Upper back pain ?M54.9 - Dorsalgia, unspecified (ICD-10) Surgical History H/O breast biopsy ?Z98.890 - Other specified postprocedural states (ICD-10) History of appendectomy ?Z90.49 - Acquired absence of other specified parts of digestive tract (ICD-10) History of cholecystectomy ?Z90.49 - Acquired absence of other specified parts of digestive tract (ICD-10) History of hemilaminectomy ?Z98.890 - Other specified postprocedural states (ICD-10) History of tonsillectomy and adenoidectomy ?Z90.89 - Acquired absence of other organs (ICD-10) Hx of laparoscopic gastric banding ?Z98.84 - Bariatric surgery status (ICD-10) Previous section ?Z98.891 - History of uterine scar from previous surgery (ICD-10) S/P dilatation and curettage ?Z98.890 - Other specified postprocedural states (ICD-10) S/P ORIF (open reduction internal fixation) fracture ?Z98.890 - Other specified postprocedural states (ICD-10) ?Z87.81 - Personal history of (healed) traumatic fracture (ICD-10) Social History Smoking status: Former smoker Meds Home Medications and Allergies Home Medications Medication Instructions Recorded Confirmed Type amlodipine 10 mg tablet (Norvasc) 10 mg PO DAILY 09/10/22 02/10/23 History biotin 1 mg capsule 1 mg PO DAILY 09/10/22 02/10/23 History cariprazine 4.5 mg capsule 4.5 mg PO Q24H 09/10/22 02/10/23 History (Vraylar) cetirizine 10 mg tablet (24Hour 10 mg PO DAILY PRN allergy symptoms 09/10/22 02/10/23 History Allergy) clonazepam 1 mg tablet 1 mg 09/10/22 History duloxetine 60 mg capsule,delayed mg PO 09/10/22 History release ferrous sulfate 325 mg (65 mg 325 mg PO BID 09/10/22 02/10/23 History iron) tablet (FeroSul) gabapentin 600 mg tablet 1,200 mg PO DAILY 09/10/22 02/10/23 History (Neurontin) gabapentin 600 mg tablet 600 mg PO DAILY 09/10/22 02/10/23 History (Neurontin) losartan 50 mg tablet (Cozaar) 50 mg PO DAILY 09/10/22 02/10/23 History magnesium 200 mg tablet 400 mg PO BID 09/10/22 02/10/23 History melatonin 12 mg tablet 12 mg PO .HS PRN sleep 09/10/22 02/10/23 History omeprazole 20 mg capsule,delayed mg 09/10/22 History release ropinirole 4 mg tablet mg 09/10/22 History tizanidine 4 mg tablet mg 09/10/22 History trazodone 150 mg tablet mg 09/10/22 History zolpidem 10 mg tablet mg 09/10/22 History olanzapine 5 mg tablet (Zyprexa) 5 mg PO DAILY PRN anxiety 01/06/23 02/10/23 History carvedilol 3.125 mg tablet (Coreg) 3.125 mg PO BID 02/10/23 02/10/23 History Allergies Allergy/AdvReac Type Severity Reaction Status Date / Time levetiracetam [From [facility]] Allergy Severe Verified 01/06/23 07:54 adhesive Allergy Intermediate Blister Verified 01/06/23 07:54 Penicillins Allergy Intermediate Verified 01/06/23 07:54 tetracycline Allergy Intermediate Verified 01/06/23 07:54 milnacipran [From Savella] AdvReac Intermediate Agitated Verified 01/06/23 07:54 prochlorperazine AdvReac Intermediate Agitated Verified 01/06/23 07:54 [From Compazine] Exam Constitutional Documenting provider has reviewed patient's vital signs: yes (elevated BP, asymptomatic) Common normals: no apparent distress, oriented x3, healthy appearing, alert and well nourished General appearance: cooperative Nutritional appearance: obese HENIA Common normals: normocephalic, hearing grossly normal bilaterally and moist oral mucous membranes Head and scalp: normocephalic Eye Common normals: PERRL Pupil: PERRL Neck & C-Spine Common normals: full ROM General: normal visual inspection Chest Common normals: inspection of chest normal Respiratory Common normals: normal respiratory effort, no retractions and no use of accessory muscles Back & Pelvis Lumbar spine/lower back: ROM limited and pain with ROM Sacroiliac joints: SI joint(s) abnormal SI joint details: tender to palpation Other: predominately axial low back pain on left side without radiculopathy positive facet loading Extremity Common normals: normal to inspection and full ROM Neuro Common normals: oriented x3, CN's II-XII intact bilaterally, moves all extremities, no focal motor deficits, no sensory deficits noted and deep tendon reflexes 2+ bilaterally Sensorium/orientation: alert Gait (neuro): normal gait Motor exam: strength 5/5 throughout and no movement abnormalities noted Psych Common normals: mental status grossly normal, thought process normal, cooperative, affect normal, speech normal and activity/motor behavior normal Speech: normal speech Thought process: normal thought process Assessment and Plan Assessment and Plan (1) Lumbar spondylosis: Assessment and Plan: The patient has had over 3 months of moderate to severe low back pain with functional impairment and inadequate response to conservative care including NSAIDS (unless there are contraindication such as concurrent blood thinners), multiple oral or topical pain medications, and home exercise program/physical therapy.? Patient has completed >6 weeks of guided home exercise program and/or formal physical therapy program without relief of their symptoms.? I have reviewed the imaging of the lumbar spine and no red flags were identified.? The imaging reveals radiographic findings consistent with lumbar spondylosis We discussed the risks and benefits of the procedure with the patient (2) Muscle spasm: Plan left L4-5 L5-S1 thermal RFA under fluoroscopy with IV sedation due to anxiety increase tizanidine 4-8mg TID PRN muscle spasms continue other medications f/u with PCP regarding elevated BP, asymptomatic today continue f/u with ortho regarding right knee pain f/u 1 month post RFA
== END 2023-02-18 10:24 | disposition home or self-care (01) ==
LOC: PM 10:24
PROVIDERS: PCP Nurse Practitioner; Visit Provider Nurse Practitioner
DX: M47.816 Spondylosis without myelopathy or radiculopathy, lumbar region (principal); M62.838 Other muscle spasm
CPT/HCPCS: G0463

== ENCOUNTER 2023-03-06 09:12 | Outpatient (OUT) | payer MEDICARE, SELFPAY ==
--- NOTE | 2023-03-06 09:18 | MR_ITS ---
[address] [address] Patient Name: MICHELLE BE MRN: [id number] date: 1960 Sex: F Assigned Patient Location: MRI Current Patient Location: MRI Accession/Order Number: [id number] Exam Date: 03/06/2023 09:30 Report Date: 03/06/2023 15:55 At the request of: ASHLEIGH JEREZ Procedure: MR knee RT wo con EXAMINATION: MR knee RT wo con HISTORY: Internal Derangement Of Right Knee M23.91 COMPARISON: XR knee right 08/08/2021 TECHNIQUE: A complete multi-planar MRI was performed. FINDINGS: MEDIAL COMPARTMENT MEDIAL MENISCUS: No visible tear or significant degeneration. CARTILAGE: No visible defect. BONES: Periarticular degenerative osteophytes. No fracture or bone lesion. MCL AND MEDIAL CAPSULE: Grade I sprain of the medial collateral ligament. LATERAL COMPARTMENT LATERAL MENISCUS: No visible tear or significant degeneration. CARTILAGE: No visible defect. BONES: Periarticular degenerative osteophytes. No fracture or bone lesion. LCL/POSTEROLAT COMPLEX: Normal lateral collateral ligament, fascicles, lateral capsule and ligaments. ANTERIOR COMPARTMENT PATELLA: Prior repair of patella via 2 screws directed cephalad-caudad and one directed medial-lateral within the patella; no appreciable contact of the hardware with the articular surfaces. The transversely placed screw extends 1.5 mm external to the lateral margin of the patella; of questionable clinical significance. Periarticular degenerative osteophytes. CARTILAGE: Irregular thinning of patellar cartilage; no appreciable defect. TENDONS: Normal. EFFUSION: Small joint effusion. ACL: Normal appearing ligament. PCL: Normal appearing ligament. MENISCOFEMORAL: Normal meniscofemoral ligaments. OTHER: Negative. MR/MR knee RT wo con IMPRESSION: 1. No specific findings to account for patient's symptoms. 2. Multifocal degenerative changes as detailed above. 3. Prior surgical repair of patella as detailed above. Electronically authenticated by: KINGSLEY CLEMENTS Date: 03/06/2023 15:55
--- OUTSIDE RECORDS SUMMARY | 2023-03-25 01:12 | XMS_ITS | CCD ---
Author Name Unknown Address [address] [place] [address] Organization [facility] Care Team Providers Care Natural Sciences Manager Name Role Phone CHRISTIAN SUKI Admitting Unavailable EBRAHEIM, SUKI Attending Unavailable AICHHOLZ, ADELAIDA Referring Unavailable AICHHOLZ, ADELAIDA Primary Care Unavailable LA Procedure Practitioner Unavailab HELADIO JacobIL Surgeon Unavailable LA Procedure Practitioner Unavailab CHAPARRITA Goncalves Surgeon Unavailable BRIDGETTE MACEDO Admitting Unavailable BRIDGETTE MACEOD Attending Unavailable AICHHOLZ, VEST FRONT PRESSER ADELAIDA Primary Care Unavailable ZIMMER ., DR FINA Iverson Admitting Unavailable ZIMMER ., DR FINA Iverson Attending Unavailable AICHHOLZ, VEST FRONT PRESSER ADELAIDA Primary Care Unavailable MCDANIEL ., ZELDA Consulting Unavailable LAKSHMIPATHY ., NARENDRANATH Consulting Paula vailable LAKSHMIPATHY ., NARENDRANATH Admitting Paula vailable LAKSHMIPATHY ., NARJEANARANATH Attending Paula vailable AICHHOLZ, VEST FRONT PRESSER ADELAIDA Primary Care Unavailable LAKSHMIPATHY ., NARENDRANATH Consulting Paula vailable AICHHOLZ, VEST FRONT PRESSER ADELAIDA Primary Care Unavailable MARKER ., DR CHAUDHRY Admitting Unavailable MARKER ., DR CHAUDHRY Attending Unavailable MARKER ., DR CHAUDHRY Consulting Unavailable AICHHOLZ, VEST FRONT PRESSER ADELAIDA Admitting Unavailable AICHHOLZ, VEST FRONT PRESSER ADELAIDA Attending Unavailable AICHHOLZ, VEST FRONT PRESSER ADELAIDA Primary Care Unavailable ZIMMER ., DR FINA Iverson Admitting Unavailable ZIMMER ., DR FINA Iverson Attending Unavailable AICHHOLZ, VEST FRONT PRESSER ADELAIDA Primary Care Unavailable MCDANIEL ., ZELDA Consulting Unavailable ZIMMER ., DR FIAN Iverson Admitting Unavailable ZIMMER ., DR FINA Iverson Attending Unavailable AICHHOLZ, VEST FRONT PRESSER ADELAIDA Primary Care Unavailable MCDANIEL ., ZELDA Consulting Unavailable AICHHOLZ, VEST FRONT PRESSER ADELAIDA Admitting Unavailable AICHHOLZ, VEST FRONT PRESSER ADELAIDA Attending Unavailable AICHHOLZ, VEST FRONT PRESSER ADELAIDA Primary Care Unavailable AICHHOLZ, VEST FRONT PRESSER ADELAIDA Consulting Unavailable AICHHOLZ, VEST FRONT PRESSER ADELAIDA Admitting Unavailable AICHHOLZ, VEST FRONT PRESSER ADELAIDA Attending Unavailable AICHHOLZ, VEST FRONT PRESSER ADELAIDA Primary Care Unavailable AICHHOLZ, VEST FRONT PRESSER ADELAIDA Consulting Unavailable MISC, DR COTE Admitting Unavailable MISC, DR COTE Attending Unavailable AICHHOLZ, VEST FRONT PRESSER ADELAIDA Primary Care Unavailable AICHHOLZ, VEST FRONT PRESSER ADELAIDA Consulting Unavailable PRITESHC, DR COTE Consulting Unavailable STARR, DR KINGSLEY Atkins Consulting Unavailable ZIMMER ., DR FINA Iverson Admitting Unavailable ZIMMER ., DR FINA Iverson Attending Unavailable AICHHOLZ, VEST FRONT PRESSER ADELAIDA Primary Care Unavailable MCDANIEL ., ZELDA Consulting Unavailable ZIMMER ., DR FINA Iverson Admitting Unavailable ZIMMER ., DR FINA Iverson Attending Unavailable AICHOLZ, VEST FRONT PRESSER ADELAIDA Primary Care Unavailable ZIMMER ., DR FINA Iverson Consulting Unavailable OMID LAY Consulting Unavailable ZIMMER ., DR FINA Iverson Admitting Unavailable ZIMMER ., DR FINA Iverson Attending Unavailable AICHOLZ, VEST FRONT PRESSER ADELAIDA Primary Care Unavailable MCDANIEL ., ZELDA Consulting Unavailable AICHHOLZ, VEST FRONT PRESSER ADELAIDA Primary Care Unavailable HALKER ., ARIAN Admitting Unavailable HALKER ., ARIAN Attending Unavailable LAKSHMIPATHY ., NARENDRANATH Consulting Paula vailable HALKER ., ARIAN Consulting Unavailable LAKSHMIPATHY ., NARENDRANATH Admitting Paula vailable LAKSHMIPATHY ., NARENDRANATH Attending Paula vailable AICHHOLZ, VEST FRONT PRESSER ADELAIDA Primary Care Unavailable LAKSHMIPATHY ., NARENDRANATH Consulting Paula vailable AICHHOLZ, VEST FRONT PRESSER ADELAIDA Admitting Unavailable AICHHOLZ, VEST FRONT PRESSER ADELAIDA Attending Unavailable AICHHOLZ, VEST FRONT PRESSER ADEALIDA Primary Care Unavailable AICHHOLZ, VEST FRONT PRESSER ADELAIDA Consulting Unavailable BRIDGETTE MACEDO Admitting Unavailable BRIDGETTE MACEDO Attending Unavailable AICHHOLZ, VEST FRONT PRESSER ADELAIDA Primary Care Unavailable STARR, DR KINGSLEY Atkins Consulting Unavailable BRIDGETTE MACEDO Consulting Unavailable PURA, GILMER Admitting Unavailable PURA, GILMER Attending Unavailable PURA, GILMER Consulting Unavailable AICHHOLZ, VEST FRONT PRESSER ADELAIDA Primary Care Unavailable AICHHOLZ, VEST FRONT PRESSER ADELAIDA Primary Care Unavailable DR WILLI RINALDI Admitting Unavailable DR WILLI RINALDI Attending Unavailable DEEJAY, DR WILLI Atkins Consulting Unavailable AICHHOLZ, VEST FRONT PRESSER ADELAIDA Primary Care Unavailable ALMAZ ., DANNY Admitting Unavailable ALMAZ ., DANNY Attending Unavailable DR KINGSLEY CLEMENTS Consulting Unavailable ALMAZ ., DANNY Consulting Unavailable LAKSHMIPATHY ., NARENDRANATH Admitting Paula vailable LAKSHMIPATHY ., NARENDRANATH Attending Paula vailable AICHHOLZ, VEST FRONT PRESSER ADELAIDA Primary Care Unavailable AICHHOLZ, VEST FRONT PRESSER ADELAIDA Admitting Unavailable AICHHOLZ, VEST FRONT PRESSER ADELAIDA Attending Unavailable AICHHOLZ, VEST FRONT PRESSER ADELAIDA Primary Care Unavailable AICHHOLZ, VEST FRONT PRESSER ADELAIDA Admitting Unavailable AICHHOLZ, VEST FRONT PRESSER ADELAIDA Attending Unavailable AICHHOLZ, VEST FRONT PRESSER ADELAIDA Primary Care Unavailable AICHHOLZ, VEST FRONT PRESSER ADELAIDA Consulting Unavailable ZIEBER, DR KINGSLEY Atkins Consulting Unavailable HALKER ., ARIAN Admitting Unavailable HALKER ., ARIAN Attending Unavailable AICHHOLZ, VEST FRONT PRESSER ADELAIDA Primary Care Unavailable Aichholz, Adelaida J Primary Care Provider MD Gaudencio Monk Admit Provider MD Gaudencio Monk Attending Provider Dariel RN Andreina Other Provider Unavailable JOHANN Pina Other Provider Unavailable JOHANN Hurtado Other Provider Unavailable JOHANN Crooks Other Provider Unavailable JOHANN Mejias Other Provider Unavailable Judy RN Elzbieta Other Provider Unavailable MD Walker Pringle Other Provider ROSS Marsh Other Provider DO Jessica Murillo Other Provider [phone] MD Obdulio Bragg Other Provider DO Joon Cristina Other Provider MD Torin Robert Other Provider [phone] MD Dawn Barrera Other Provider Karlene, ANP-BC Mari Other Provider [phone] MD Sofi Almanzar Other Provider MD Sharad Gallegos Other Provider MD Aby Cain Other Provider MD Hillary aCrrera Other Provider DO Julio César Mckeon Other Provider MD Valentine Mak Other Provider MD Raymond Strong Other Provider BRIANA Le-C Joellen Mcnair Other Provider MD Severo Yancey Other Provider MD Rao Webber Other Provider MD Yuan Shi Other Provider MD Delroy Ramirez Other Provider DO Berta Comer Other Provider DO Negrito Ruiz Other Provider DO Lacho Singh Other Provider ROSS Hobson Other Provider DO Rob [place] Other Provider MD Jeff Alvarez M Other Provider ROSS Rinaldi Other Provider ROSS Mayberry Other Provider MD Mir Bradford Other Provider MD Te Da Silva Other Provider JOHANN Landaverde Other Provider Unavailable Rosemary Kirkland Unavailable Jace Graham Unavailable ASHLEIGH JEREZ Attending Unavailable JR. HARRY GEORGE C Attending Unavaila ble Adelaida Carrion Primary Care Provider MD Jace Graham Attending Provider [phone] Adelaida Carrion Primary Care Unavailable Aleshia, Eduardo Admitting Unavailab Andreina Chan Consulting Unavailable Eduardo Monk Attending Unavailab Camilla Bahena Consulting Unavailable Ruchi Hurtado Consulting Unavailable Lisa Crooks Consulting Unavailable Tash Mejias Consulting Unavailable Elzbieta Kim Consulting Unavailable Walker Pringle Consulting Unavailable Adelaida Marsh Consulting Unavailable Jessica Murillo Consulting Unavailable Obdulio Bragg Consulting Unavailable Joon Cristina Consulting UnavailTorin Beavers Consulting Unavailable Dawn Barrera Consulting Unavailable Mari Herrera Consulting UnavailSofi Marques Consulting Unavailable Sharad Gallegos Consulting Unavailable Aby Cain Consulting Unavailable Hillary Carrera Consulting Unavailable Julio César Mckeon Consulting Unavailable Valentine Mak Consulting Unavailable Raymond Strong Consulting Unavailable Joellen Le Consulting Unavailable Severo Yancey Consulting Unavailab Rao Tompkins Consulting Unavailable Yuan Shi Consulting Unavailable Delroy Ramirez Consulting Unavailable Berta Comer Consulting Unavailable Negrito Ruiz Consulting Unavailable Lacho Singh Consulting Unavailable ObRachana romano Consulting Unavailable Rob [place] Consulting Unavailable DaromaJeff atkins Consulting Unavailable Urmila Rinaldi Consulting Unavailable Bina Mayberry Consulting Unavailable Sanchez Alamonse Consulting Unavailable Te Da Silva Consulting Unavailable Debra Landaverde Consulting Unavailable Jace Graham Admitting Unavailable Jace Graham Attending Unavailable Sheyla Adelaida J Primary Care Unavailable Aleshia, Eduardo Attending Unavailab kayleen Monk, Eduardo Admitting Unavailab Adelaida Wagner Primary Care Unavailable Allergies Allergy Classification Reported Allergen(s) Allergy Type Date of Onset Reaction(s) Facility (7 sources) Adhesive Tape; Translations: [ADHESIVE TAPE] Propensity to adverse reactions (disorder) 4 rash [facility] Repository (3 sources) levETIRAcetam; Translations: [KEPPRA] Drug Allergy 9 [facility] Repository (3 sources) milnacipran; Translations: [SAVELLA] Drug Allergy 3 [facility] Repository (1 source) Penicillin; Translations: [PENICILLIN] Drug Allergy 8 [facility] Repository (5 sources) Prochlorperazin e; Translations: [COMPAZINE] Drug Allergy 3 agitation [facility] Repository (8 sources) Tetracycline; Translations: [TETRACYCLINE] Drug Allergy 3 Unknown Reaction, Unknown [facility] Repository (4 sources) Penicillins Drug allergy (disorder) 3 Unknown Reaction [facility] Repository (5 sources) levETIRAcetam; Translations: [levetiracetam] Drug Allergy 3 Unknown Reaction, altered mental status [facility] (5 sources) milnacipran; Translations: [milnacipran] Drug Allergy 3 hives [facility] (3 sources) Prochlorperazin e; Translations: [prochlorperazi ne] Drug Allergy 3 Agitated [facility] (2 sources) Penicillin G Drug Allergy as a child [facility] Other (2 sources) Tetracaine Drug Allergy Unknown [facility] [employer] Other (1 source) Penicillins Drug allergy (disorder) 3 [facility] Repository Medications Current Medications Medication Drug Class(es) Dates Sig (Normalized) Sig (Original) amLODIPine 10 mg oral tablet (4 sources) Dihydropyridine Calcium Channel Jim Start: 11-17-2022 take 10 mg by mouth once daily Amlodipine Active 10 MG PO Daily November 16, 2022 11:00pm Bariatric Multivitamins/Iron - (2 sources) Bariatric Multivitamins/I geovany - as directed Orally Active Biotin (2 sources) take 1 tablet by mouth once daily Biotin 5000 MCG 1 tablet Orally Once a day Active Calcium (2 sources) Phosphate Binder, Calcium Calcium Active calcium citrate 950 mg / cholecalciferol 250 unt oral tablet (4 sources) Vitamin D Start: 11-17-2022 take 1 tablet by mouth four times daily Calcium Citrate-Vitamin D3 Active 1 TAB PO Four times daily November 16, 2022 11:00pm Start: 11-17-2022 End: 11-17-2022 take 1 tablet by mouth twice daily Calcium Citrate-Vitamin D3 (Calcium Citrate + D) 315 mg-5 mcg (200 unit) Tablet Discontinued 1 TAB PO Twice daily November 16, 2022 11:00pm November 17, 2022 7:25pm cariprazine 4.5 mg oral capsule (4 sources) Atypical Antipsychotic Start: 11-17-2022 take 1 capsule by mouth once daily Cariprazine (Vraylar) 4.5 mg capsule Active 4.5 MG PO Daily November 16, 2022 11:00pm cetirizine hydrochloride 10 mg oral tablet (4 sources) Histamine-1 Receptor Antagonist Start: 11-17-2022 take 10 mg by mouth once daily Cetirizine Active 10 MG PO Daily November 16, 2022 11:00pm clonazePAM 1 mg oral tablet (6 sources) Benzodiazepine Start: 11-17-2022 take 1 mg by mouth twice daily Clonazepam Active 1 MG PO Twice daily November 16, 2022 11:00pm Start: 05-27-2018 End: 11-17-2022 take 2 mg by mouth every twelve hours Clonazepam Discontinued 2 MG PO Q12H May 27, 2018 12:00am November 17, 2022 12:45am DULoxetine 60 mg delayed release oral capsule (6 sources) Serotonin and Norepinephrine Reuptake Inhibitor Start: 11-17-2022 take 60 mg by mouth twice daily Duloxetine Active 60 MG PO Twice daily November 16, 2022 11:00pm Start: 05-27-2018 End: 11-17-2022 take 60 mg by mouth once daily Duloxetine Discontinued 60 MG PO Daily May 27, 2018 12:00am November 17, 2022 12:45am ferrous sulfate 325 mg oral tablet (4 sources) Start: 11-17-2022 take 1 tablet by mouth twice daily Ferrous Sulfate (Iron (Ferrous Sulfate)) 325 mg (65 mg iron) Tablet Active 60 MG PO 2 times daily November 16, 2022 11:00pm Start: 11-17-2022 take 1 tablet by kenyatta th once daily Ferrous Sulfate (Iron (Ferrous Sulfate)) 325 mg (65 mg iron) Tablet Active 325 MG PO Daily November 17, 2022 12:00am take 1 tablet by kenyatta th every twelve hours Ferrous Sulfate 325 (65 Fe) MG 1 tablet Orally TWICE A DAY Active fluconazole 150 mg oral tablet (4 sources) Azole Antifungal Start: 12-19-2022 take 1 tablet by mouth every other day Diflucan 150 MG 1 tablet Orally once for 6 days Take 1 tablet every other day until gone. 15 Dec, 2022 Active Start: 05-27-2018 End: 05-28-2018 take 1 tablet by mouth every twelve hours Fluconazole (Diflucan) 150 mg tablet Discontinued 150 MG PO Q12H May 27, 2018 12:00am May 28, 2018 11:21am fluticasone propionate 0.05 mg/actuat metered dose nasal spray (4 sources) Corticosteroid Start: 11-17-2022 Fluticasone Pr opionate Active 2 SPRAY INTRANASAL Daily November 16, 2022 11:00pm Flonase Active gabapentin 600 mg oral tablet (10 sources) Anti-epileptic Agent Start: 05-28-2018 End: 11-17-2022 take 1200 mg by mouth at bedtime Gabapentin Active 1200 MG PO Bedtime November 16, 2022 11:00pm Start: 05-27-2018 End: 11-17-2022 Gabapentin Active 600 MG PO 0900,1400 November 16, 2022 11:00pm losartan potassium 100 mg oral tablet (4 sources) Angiotensin 2 Receptor Jim Start: 11-17-2022 take 100 mg by mouth once daily Losartan Active 100 MG PO Daily November 16, 2022 11:00pm Magnesium (2 sources) take 1 tablet by mouth once daily Magnesium 400 MG 1 tablet with a meal Orally Once a day Active melatonin 10 mg oral tablet (3 sources) Start: 03-23-2023 take 20 mg by mouth at bedtime Melatonin Active 20 MG PO Bedtime March 23, 2023 12:00am take 2 tablets by mo [facility] once daily at bedtime Melatonin 10 MG 2 TABLETS Orally QHS Active Gaekirrlfdfi-Uzs-Uwzq-Fa-Vit K (Bariatric Multivitamins) 45 mg iron- 800 mcg-120 mcg Capsule (2 sources) Start: 11-17-2022 take 1 capsule by mouth once daily Gjyvmcdtcrqd-Ihz-Qtuw-Fa-Vit K (Bariatric Multivitamins) 45 mg iron- 800 mcg-120 mcg Capsule Active 1 CAP PO Daily November 16, 2022 11:00pm Start: 11-17-2022 take 1 capsule by mo uth once daily Nmhjbggssyng-Qva-Lfbb-Fa-Vit K (Bariatri c Multivitamins) 45 mg iron- 800 mcg-120 mcg Capsule Active 1 CAP PO Daily November 17, 2022 12:00am OLANZapine 5 mg oral tablet (2 sources) Atypical Antipsychotic Start: 11-18-2022 take 5 mg by mouth every six hours Olanzapine Active 5 MG PO Q6H 30 15 November 17, 2022 11:00pm omeprazole 20 mg delayed release oral capsule (4 sources) Proton Pump Inhibitor Start: 11-17-2022 take 20 mg by mouth once daily Omeprazole Active 20 MG PO Daily November 16, 2022 11:00pm rOPINIRole 4 mg oral tablet (4 sources) Nonergot Dopamine Agonist Start: 11-17-2022 take 4 mg by mouth once daily Ropinirole Active 4 MG PO Daily November 16, 2022 11:00pm tiZANidine 4 mg oral tablet (4 sources) Central alpha-2 Adrenergic Agonist Start: 11-17-2022 Tizanidine Active 2 MG PO 09,1400 November 16, 2022 11:00pm Start: 11-17-2022 take 8 mg by mouth at bedtime Tizanidine Active 8 MG PO Bedtime November 16, 2022 11:00pm traZODone hydrochloride 150 mg oral tablet (6 sources) Serotonin Reuptake Inhibitor Start: 11-17-2022 take 150 mg by mouth at bedtime Trazodone Active 150 MG PO Bedtime November 16, 2022 11:00pm Start: 05-27-2018 End: 11-17-2022 take 300 mg by mouth once daily Trazodone Discontinued 300 MG PO Daily May 27, 2018 12:00am November 17, 2022 12:49am zolpidem tartrate 10 mg oral tablet (4 sources) gamma-Aminobutyric Acid-ergic Agonist Start: 11-17-2022 take 10 mg by mouth at bedtime Zolpidem Active 10 MG PO Bedtime November 16, 2022 11:00pm Completed/Discontinued Medications Medication Drug Class(es) Dates Sig (Normalized) Sig (Original) ARIPiprazole 30 mg oral tablet (2 sources) Atypical Antipsychotic Start: 05-27-2018 End: 11-17-2022 take 30 mg by mouth once daily Aripiprazole Discontinued 30 MG PO Daily May 27, 2018 12:00am November 17, 2022 12:52am aspirin 81 mg chewable tablet (2 sources) Platelet Aggregation Inhibitor, Nonsteroidal Anti-inflammatory Drug Start: 05-27-2018 End: 11-17-2022 take 81 mg by mouth once daily Aspirin Discontinued 81 MG PO Daily May 27, 2018 12:00am November 17, 2022 12:52am clotrimazole 10 mg/ml topical cream (2 sources) Azole Antifungal Start: 05-27-2018 End: 11-17-2022 Clotrimazole Discontinued 1 APPLIC TOPICAL Q12H May 27, 2018 12:00am November 17, 2022 12:52am diphenhydrAMINE hydrochloride 25 mg oral capsule (2 sources) Histamine-1 Receptor Antagonist Start: 05-27-2018 End: 11-17-2022 take 2 capsules by mouth at bedtime Diphenhydramine Hcl (Benadryl) 25 mg Capsule Discontinued 50 MG PO Bedtime May 27, 2018 12:00am November 17, 2022 12:52am levETIRAcetam 500 mg oral tablet (2 sources) Start: 05-27-2018 End: 06-01-2018 take 500 mg by mouth every twelve hours Levetiracetam Discontinued 500 MG PO Q12H May 27, 2018 12:00am June 01, 2018 1:22pm lisinopril 20 mg oral tablet (2 sources) Angiotensin Converting Enzyme Inhibitor Start: 06-01-2018 End: 11-17-2022 take 20 mg by mouth once daily Lisinopril Discontinued 20 MG PO Daily June 01, 2018 12:00am November 17, 2022 12:49am loratadine 10 mg oral tablet (2 sources) Start: 05-27-2018 End: 11-17-2022 take 10 mg by mouth once daily Loratadine Discontinued 10 MG PO Daily May 27, 2018 12:00am November 17, 2022 12:49am meloxicam 15 mg oral tablet (2 sources) Nonsteroidal Anti-inflammatory Drug Start: 05-27-2018 End: 11-17-2022 take 15 mg by mouth once daily Meloxicam Discontinued 15 MG PO Daily May 27, 2018 12:00am November 17, 2022 12:52am prazosin 2 mg oral capsule (2 sources) alpha-Adrenergic Jim Start: 05-27-2018 End: 11-17-2022 take 2 mg by mouth once daily Prazosin Discontinued 2 MG PO Daily May 27, 2018 12:00am November 17, 2022 12:49am raNITIdine (4 sources) Histamine-2 Receptor Antagonist Start: 05-27-2018 End: 11-17-2022 take 1 tablet by mouth once daily Ranitidine Hcl (Zantac Maximum Strength) 150 mg Tablet Discontinued 150 MG PO Daily May 27, 2018 12:00am November 17, 2022 12:49am Start: 05-27-2018 End: 05-27-2018 Ranitidine Hcl (Zantac Maxim um Strength) 150 mg Tablet Discontinued TABLET May 27, 2018 12:00am May 27, 2018 7:01pm Start: 05-27-2018 End: 05-27-2018 Ranitidine Hcl (Zantac Maxim um Strength) 150 mg Tablet Discontinued TABLET May 27, 2018 1:00am May 27, 2018 8:01pm Triamcinolone (2 sources) Corticosteroid Start: 09-17-2019 Kenalog -40 mg Sep, 40 mg Problems Active Problems Problem Classification Problem Date Documented Date Episodic/Chronic Anxiety disorders (2 sources) Post-traumatic stress disorder, unspecified; Translations: [Anxiety disorder, unspecified] Onset: 04-29-19 Chronic Diabetes mellitus without complication (2 sources) Diabetes mellitus; Translations: [Type 2 diabetes mellitus without complications] 05-31-2018 Chronic Diabetes mellitus without complication (1 source) Prediabetes; Translations: [PREDIABETES] Onset: 08-01-19 Episodic Disorders of lipid metabolism (1 source) Pure hypercholesterolemia, unspecified; Translations: [PURE HYPERCHOLESTEROLEMIA UNSPEC] Onset: 07-17-19 23 Chronic Esophageal disorders (1 source) Gastro-esophageal reflux disease without esophagitis; Translations: [GERD WITHOUT ESOPHAGITIS] Onset: 07-17-19 Chronic Essential hypertension (9 sources) Essential (primary) hypertension; Translations: [Hypertensive disorder] Onset: 07-17-19 Chronic Gout and other crystal arthropathies (1 source) Gout, unspecified; Translations: [GOUT UNSPECIFIED] Onset: 11-23-19 Chronic Malaise and fatigue (2 sources) Asthenia; Translations: [Weakness] 05-31-2018 Episodic Mood disorders (9 sources) Bipolar disorder, current episode depressed, severe, without psychotic features; Translations: [Unspecified mood [affective] disorder] Onset: 11-23-1911-17-2022 Chronic Mood disorders (1 source) Mood disorders; Translations: [DEPRESSION UNSPECIFIED] Onset: 04-29-19 Mycoses (1 source) Candidiasis of skin and nail Episodic Nutritional deficiencies (1 source) Iron deficiency; Translations: [IRON DEFICIENCY] Onset: 08-01-19 Episodic Osteoarthritis (1 source) Primary osteoarthritis, right ankle and foot; Translations: [PRIMARY OSTEOARTHRITIS RT ANK FOOT] Onset: 01-14-20 Chronic Other connective tissue disease (1 source) Fibromyalgia; Translations: [FIBROMYALGIA] Onset: 07-17-19 Episodic Other connective tissue disease (4 sources) Radial styloid tenosynovitis [de Quervain]; Translations: [RADIAL STYLOID TENOSYNOVITIS] Onset: 06-12-19 Episodic Other connective tissue disease (2 sources) Weakness of face muscles; Translations: [Facial weakness] 11-18-2022 Episodic Other gastrointestinal disorders (1 source) Bariatric surgery status; Translations: [BARIATRIC SURGERY STATUS] Onset: 08-01-19 Episodic Other hereditary and degenerative nervous system conditions (2 sources) Restless legs; Translations: [Restless legs syndrome] 11-18-2022 Chronic Other hereditary and degenerative nervous system conditions (2 sources) Restless legs syndrome; Translations: [Restless legs syndrome (RLS)] Onset: 11-18-1911-20-2022 Chronic Other nervous system disorders (2 sources) Other chronic pain; Translations: [OTHER CHRONIC PAIN] Onset: 06-30-19 Chronic Other nervous system disorders (4 sources) Chronic pain syndrome; Translations: [CHRONIC PAIN SYNDROME] Onset: 04-03-20 Chronic Other non-traumatic joint disorders (4 sources) Pain in right shoulder; Translations: [PAIN IN RIGHT SHOULDER] Onset: 05-21-19 Episodic Other nutritional; endocrine; and metabolic disorders (1 source) Obesity, unspecified; Translations: [OBESITY UNSPECIFIED] Onset: 07-17-19 Chronic Other nutritional; endocrine; and metabolic disorders (4 sources) Body mass index 40+ - severely obese; Translations: [Morbid (severe) obesity due to excess calories] 11-18-2022 Chronic Other nutritional; endocrine; and metabolic disorders (2 sources) Morbid (severe) obesity due to excess calories; Translations: [Morbid obesity] Onset: 11-18-1911-20-2022 Chronic Other nutritional; endocrine; and metabolic disorders (1 source) Body mass index (BMI) 45.0-49.9, adult; Translations: [Body mass index [BMI] 45.0-49.9, adult] Onset: 11-18-19 Chronic Residual codes; unclassified (1 source) Sleep apnea, unspecified; Translations: [SLEEP APNEA UNSPECIFIED] Onset: 07-17-19 Chronic Residual codes; unclassified (2 sources) Obstructive sleep apnea syndrome; Translations: [Obstructive sleep apnea (adult) (pediatric)] 11-18-2022 Chronic Residual codes; unclassified (2 sources) Obstructive sleep apnea (adult) (pediatric); Translations: [Obstructive sleep apnea (adult)(pediatric)] Onset: 11-18-1911-20-2022 Chronic Screening and history of mental health and substance abuse codes (1 source) Personal history of nicotine dependence; Translations: [PERSONAL HISTORY OF NICOTINE DEPEND] Onset: 07-17-19 Episodic Spondylosis; intervertebral disc disorders; other back problems (16 sources) Spondylosis without myelopathy or radiculopathy, lumbosacral region; Translations: [Spondylosis without myelopathy or radiculopathy, lumbar region] Onset: 08-24-19 Chronic Unclassified (3 sources) LOW BACK PAIN, UNSPECIFIED; Translations: [LOW BACK PAIN, UNSPECIFIED] Onset: 06-30-19 Urinary tract infections (2 sources) Urinary tract infectious disease; Translations: [Urinary tract infection, site not specified] 11-18-2022 Episodic Past or Other Problems Problem Classification Problem Date Documented Date Episodic/Chronic Allergic reactions (5 sources) Unspecified contact dermatitis, unspecified cause; Translations: [Allergic condition] Onset: 09-13-2021 11-18-2022 Episodic E Codes: Cut/pierceb (1 source) Contact with scissors, initial encounter; Translations: [CONTACT WITH SCISSORS INITIAL ENC] Onset: 02-21-2022 Episodic Immunizations and screening for infectious disease (1 source) Encounter for immunization; Translations: [ENCOUNTER FOR IMMUNIZATION] Onset: 02-21-2022 Episodic Open wounds of extremities (4 sources) Laceration without foreign body of left middle finger without damage to nail, initial encounter; Translations: [LAC W/O FB LT MF W/O DMG NAIL INIT] Onset: 02-20-2022 Episodic Other aftercare (1 source) Other retirement (current) drug therapy; Translations: [OTH SHELTER CURRENT DRUG THERAPY] Onset: 04-29-2022 Episodic Other connective tissue disease (4 sources) Achilles tendinitis, right leg; Translations: [ACHILLES TENDINITIS RIGHT LEG] Onset: 01-10-2022 Episodic Other connective tissue disease (5 sources) Pain in right foot; Translations: [PAIN IN RIGHT FOOT] Onset: 11-21-2021 Episodic Other connective tissue disease (1 source) Other bursitis of elbow, left elbow; Translations: [OTHER BURSITIS OF ELBOW LEFT ELBOW] Onset: 12-18-2021 Episodic Other non-traumatic joint disorders (4 sources) Pain in left wrist; Translations: [PAIN IN LEFT WRIST] Onset: 04-28-2022 Episodic Other non-traumatic joint disorders (4 sources) Effusion, right ankle; Translations: [EFFUSION RIGHT ANKLE] Onset: 01-01-2022 Episodic Other non-traumatic joint disorders (3 sources) Pain in left elbow; Translations: [PAIN IN LEFT ELBOW] Onset: 12-16-2021 Episodic Other skin disorders (4 sources) Rash and other nonspecific skin eruption; Translations: [RASH OTH NONSPECIFIC SKIN ERUPTION] Onset: 09-12-2021 Episodic Residual codes; unclassified (1 source) Acquired absence of other specified parts of digestive tract; Translations: [ACQ ABSENCE OTH PART DIGESTV TRACT] Onset: 04-29-2022 Episodic Residual codes; unclassified (4 sources) Localized edema; Translations: [LOCALIZED EDEMA] Onset: 03-19-2022 Episodic Spondylosis; intervertebral disc disorders; other back problems (4 sources) Sacrococcygeal disorders, not elsewhere classified; Translations: [Chronic back pain ] Onset: 08-23-2021 11-20-2022 Episodic Unclassified (1 source) LOW BACK PAIN, UNSPECIFIED; Translations: [LOW BACK PAIN, UNSPECIFIED] Onset: 06-26-2022 Results Test Name Value Interpretation Reference Range Facil ity Amphetamine Screen Ql (U)Ord ered By: Jace Graham on 03-23-2023 Amphetamines Ql (U) Negative Negative [facility] Barbiturates [Presence] in U rine by Screen methodOrdered By: Jace Graham on 03-23-2023 Barbiturates Screen Ql (U) Negative Negative [facility] Benzodiazepines Screen Ql (U )Ordered By: Jace Graham on 03-23-2023 Benzodiazepines Ql (U) Negative Negative [facility] Benzoylecgonine [Presence] i n Urine by Screen methodOrdered By: Jace Graham on 03-23-2023 Benzoylecgonine Screen Ql (U) Negative Negati ve [facility] Cannabinoids [Presence] in U rine by Screen methodOrdered By: Jace Graham on 03-23-2023 Cannabinoids Screen Ql (U) Negative Negative [facility] Comment on above: These are unconfirme d results and should not be used for legal purposes. Drug Cut-Off Concentration: AMPH 1000 ng/mL ELKIN 200 ng/mL ATIYA 200 ng/mL COCM 300 ng/mL OP 300 ng/mL PCP 25 ng/mL THC 20 ng/mL Drug Screen,Urineon 03-23-20 23 Amphetamine Screen,Urine Negative Normal Negative [facility] Comment on above: Performed By: #### U RDS #### [address] Barbiturate Screen,Urine Negative Normal Negative [facility] Comment on above: Performed By: #### U RDS #### [facility] [address] [place] [address] [place] Benzodiazepines Screen,Urine Negative Normal Negativ e [facility] Comment on above: Performed By: #### U RDS #### [place] [address] [place] Cannabinoid Screen,Urine Negative Normal Negative [facility] Comment on above: Result Comment: Thes e are unconfirmed results and should not be used for legal purposes. Drug Cut-Off Concentration: AMPH 1000 ng/mL ELKIN 200 ng/mL ATIYA 200 ng/mL COCM 300 ng/mL OP 300 ng/mL PCP 25 ng/mL THC 20 ng/mL PERFORMED BY: [place] [address] PATHOLOGIST MOLASSES FEED MIXER AN CURRY M.D. Performed By: #### U RDS #### [facility] [address] Cocaine Screen,Urine Negative Normal Negative [facility] Comment on above: Performed By: #### U RDS #### [facility] [address] [place] [address] [place] Opiate Screen,Urine Negative Normal Negative [facility] Comment on above: Performed By: #### U RDS #### [facility] [address] Phencyclidine Screen,Urine Negative Normal Negative [facility] Comment on above: Performed By: #### U RDS #### [facility] [address] Opiates [Presence] in Urine by Screen methodOrdered By: Jace Graham on 03-23-2023 Opiates Screen Ql (U) Negative Negative [facility] Phencyclidine Screen Ql (U)O rdered By: Jace Graham on 03-23-2023 Phencyclidine Ql (U) Negative Negative [facility] Cholesterol [Mass/volume] in Serum or PlasmaOrdered By: Eduardo Monk on 11-18-2022 Cholesterol [Mass/Vol] 159 mg/dL 140-200 [facility] Comment on above: Chol less than 200 m g/dl low riskChol 201-239 mg/dl borderline riskChol 240 mg/dl and greater high risk Cholesterol in LDL Calc [Mas s/Vol]Ordered By: Eduardo Monk on 11-18-2022 Cholesterol in LDL [Mass/Vol] 84 mg/dL 0-100 [facility] Comment on above: LDL ATP III CLASSIFI CATIONLDL less than 100 mg/dL OptimalLDL 100-129 mg/dL Near or above optimalLDL 130-159 mg/dL Borderline highLDL 160-189 mg/dL HighLDL greater than 189 mg/dL Very high Cholesterol in VLDL Calc [Ma ss/Vol]Ordered By: Eduardo Monk on 11-18-2022 Cholesterol in VLDL [Mass/Vol] 28 mg/dL [facility] Lipid Panelon 11-18-2022 Cholesterol [Mass/Vol] 159 mg/dL Normal 140-200 [facility] Comment on above: Order Comment: teri barney to tomorrow morning Result Comment: Chol less than 200 mg/dl low risk Chol 201-239 mg/dl borderline risk Chol 240 mg/dl and greater high risk Performed By: #### L IPID #### [facility] [id number] [facility] Cholesterol in HDL [Mass/Vol] 46 mg/dL Normal 23-92 [facility] Comment on above: Order Comment: teri barney to tomorr morning Result Comment: HDL CHOL ATP-III CLASSIFICATION Cardiovascular Risk HDL > or equal to 60 mg/dL LOW HDL < 40 mg/dL HIGH Performed By: #### L IPID #### [facility] [address] Cholesterol.total/Cholestero l in HDL [Mass ratio] 3.5 {ratio} Normal <5.0 [facility] Comment on above: Order Comment: teri barney to tomorr morning Result Comment: PERF ORMED BY: [place] [address] PATHOLOGIST MOLASSES FEED MIXER AN CURRY M.D. Performed By: #### L IPID #### [facility] [address] LDL Cholesterol,Calculated 84 mg/dL Normal 0-100 [facility] Comment on above: Order Comment: teri barney to tomorr morning Result Comment: LDL ATP III CLASSIFICATION LDL less than 100 mg/dL Optimal LDL 100-129 mg/dL Near or above optimal LDL 130-159 mg/dL Borderline high LDL 160-189 mg/dL High LDL greater than 189 mg/dL Very high Performed By: #### L IPID #### [facility] [address] [id number] [place] Triglyceride w/Reflex 144 mg/dL Normal 0-149 [facility] Comment on above: Order Comment: teri barney to tomorr morning Result Comment: TRIG ATP III CLASSIFICATION TRIG less than 150 mg/dL Normal TRIG 150-199 mg/dL Borderline high TRIG 200-500 mg/dL High TRIG greater than 500 mg/dL Very high Standard traceable to the Center for Disease Conrtrol and Prevention (CDC) test method. Performed By: #### L IPID #### [facility] [address] VLDL CHOLESTEROL 28 mg/dL Normal [facility] Comment on above: Order Comment: williamson e to tomorrow morning Performed By: #### L IPID #### [facility] [address] Serum or plasma high density lipoprotein (HDL) cholesterol measurementOrdered By: Eduardo Monk on 11-18-2022 Cholesterol in HDL [Mass/Vol] 46 mg/dL 23- [facility] Comment on above: HDL CHOL ATP-III CLA SSIFICATION Cardiovascular RiskHDL > or equal to 60 mg/dL LOWHDL < 40 mg/dL HIGH Serum or plasma total choles terol/high density lipoprotein (HDL) cholesterol mass ratOrdered By: Eduardo Monk on 11-18-2022 Cholesterol.total/Cholestero l in HDL [Mass ratio] 3.5 {ratio} <5.0 [facility] Thyroid Stimulating Hormoneo n 11-18-2022 TSH Qn 2.13 m[IU]/L Normal 0.45-5.33 [facility] Comment on above: Performed By: #### T SH3, [id number] #### [facility] [address] Thyrotropin [Units/volume] i n Serum or PlasmaOrdered By: Eduardo Monk on 11-18-2022 TSH Qn 2.13 m[IU]/L 0.45-5.33 [facility] Triglyceride [Mass/volume] i n Serum or PlasmaOrdered By: Eduardo Monk on 11-18-2022 Triglyceride [Mass/Vol] 144 mg/dL 0-149 [facility] Comment on above: TRIG ATP III CLASSIF ICATIONTRIG less than 150 mg/dL NormalTRIG 150-199 mg/dL Borderline highTRIG 200-500 mg/dL High TRIG greater than 500 mg/dL Very highStandard traceable to the Center for Disease Conrtrol and Prevention (CDC) test method. Vitamin D 25 Hydroxy Totalon 11-18-2022 Vitamin D 25 Hydroxy Total 50.4 ng/mL Normal 30-100 [facility] Comment on above: Result Comment: SKYLER MIN D STATUS 25(OH)VITAMIN D RANGE (ng/mL) Deficient <20 Insufficient 20 to <30 Sufficient 30 to 100 Reference: Lakshmi Altamirano, Cristian SMART et al. Evaluation,treatment, and prevention of vitamin D deficiency; an Endocrine Society clinical practice guideline. JCEM. 2010; 96(7):1911-. PERFORMED BY: [place] [address] PATHOLOGIST MOLASSES FEED MIXER AN CURRY M.D. Performed By: #### T SH3, [id number] #### [address] Vitamin D+Metabolites [Mass/ volume] in Serum or PlasmaOrdered By: Eduardo Monk on 11-18-2022 Vitamin D+Metabolites [Mass/Vol] 50.4 ng/mL 30- 100 [facility] Comment on above: VITAMIN D STATUS 25( [place])VITAMIN D RANGE (ng/mL) Deficient <20 Insufficient 20 to <30Sufficient 30 to 100Reference: Lakshmi Altamirano, Cristian SMART et al. Evaluation,treatment, and prevention of vitamin D deficiency; an Endocrine Society clinical practice guideline. JCEM. 2010; 96(7):1911-30. CBC AUTO DIFFon 07-25-2022 BASO # 0.1 103/ul Normal 0.0-0.1 [facility] Comment on above: Performed By: #### A 1C #### [facility] [address] [address] [address] Bebeto Williamson Basophils/100 WBC (Bld) 0.6 % Normal 0.2-2.0 [facility] Comment on above: Performed By: #### A 1C #### [facility] [address] [place] [address] Dr. Bebeto Williamson EO # 0.2 103/ul Normal 0.0-0.7 [facility] Comment on above: Performed By: #### A 1C #### [facility] [address] [place] [address] Dr. Bebeto Williamson Eosinophils/100 WBC (Bld) 2.3 % Normal 0.9-7.0 [facility] Comment on above: Performed By: #### A 1C #### [facility] [address] [place] [address] Dr. Bebeto Williamson Erythrocyte distribution wid th (RBC) [Ratio] 13.8 % Normal 11.0-15.0 [facility] Comment on above: Performed By: #### A 1C #### [facility] [address] [place] [address] Dr. Bebeto Williamson Hematocrit (Bld) [Volume fraction] 41.2 % Normal 3 6.0-48.0 [facility] Comment on above: Performed By: #### A 1C #### [facility] [address] [place] [address] Dr. Bebeto Williamson Hemoglobin (Bld) [Mass/Vol] 13.2 g/dL Normal 12.0-16. 0 [facility] Comment on above: Performed By: #### A 1C #### [facility] [address] [place] [address] Dr. Bebeto Williamson IG # 0.03 10e3/ul Normal 0.00-0.03 [facility] Comment on above: Performed By: #### A 1C #### [facility] [address] [place] [address] Dr. Bebeto Williamson IG % 0.4 % Normal 0.0-0.5 [facility] Comment on above: Performed By: #### A 1C #### [facility] [address] [place] [address] Dr. Bebeto Williamson LYMPH # 2.1 103/ul Normal 1.2-3.8 [facility] Comment on above: Performed By: #### A 1C #### [facility] [address] [place] [address] Dr. Bebeto Williamson Lymphocytes/100 WBC (Bld) 25.9 % Normal 20.5-60.0 [facility] Comment on above: Performed By: #### A 1C #### [facility] [address] [place] [address] Dr. Bebeto Williamson MANUAL DIFF REQ NO Normal [facility] Comment on above: Performed By: #### A 1C #### [facility] [address] [place] [address] Dr. Bebeto Williamson MCH (RBC) [Entitic mass] 28.0 pg Normal 26.7-34.0 [facility] Comment on above: Performed By: #### A 1C #### [facility] [address] [place] [address] Dr. Bebeto Williamson MCHC (RBC) [Mass/Vol] 32.0 g/dL Normal 29.9-35.2 [facility] Comment on above: Performed By: #### A 1C #### [facility] [address] [place] [address] Dr. Bebeto Williamson MCV (RBC) [Entitic vol] 87.5 fL Normal 81.0-99.0 [facility] Comment on above: Performed By: #### A 1C #### [facility] [address] [place] [address] Dr. Bebeto Williamson MONO # 0.5 103/ul Normal 0.3-0.8 [facility] Comment on above: Performed By: #### A 1C #### [facility] [address] [place] [address] Dr. Bebeto Williamson Monocytes/100 WBC (Bld) 6.6 % Normal 1.7-12.0 [facility] Comment on above: Performed By: #### A 1C #### [facility] [address] [place] [address] Dr. Bebeto Williamson NEUT # 5.1 103/ul Normal 1.4-6.5 [facility] Comment on above: Performed By: #### A 1C #### [facility] [address] [address] [address] Bebeto Williamson Neutrophils/100 WBC (Bld) 64.2 % Normal 43.0-75.0 [facility] Comment on above: Performed By: #### A 1C #### [facility] [address] [place] [address] Dr. Bebeto Williamson Platelet mean volume (Bld) [ Entitic vol] 11.2 fL Normal 9.5-13.5 [facility] Comment on above: Performed By: #### A 1C #### [facility] [address] [place] [address] Dr. Bebeto Williamson PLT 252 103/ul Normal 150-450 [facility] Comment on above: Performed By: #### A 1C #### [facility] [address] [place] [address] Dr. Bebeto Williamson RBC 4.71 106/ul Normal 4.20-5.40 [facility] Comment on above: Performed By: #### A 1C #### [facility] [address] [place] [address] Dr. Bebeto Williamson WBC 8.0 103/ul Normal 4.0-11.0 [facility] Comment on above: Performed By: #### A 1C #### [facility] [address] [place] [address] Dr. Bebeto Williamson GLYCOHEMOGLOBIN A1Con 2022 ADA RECOMMENDATION SEE BELOW Normal [facility] Comment on above: Result Comment: ADA RECOMMENDED LIMIT 4.0 - 6.0 ADA THERAPEUTIC TARGET < 7.0 ACTION SUGGESTED > 7.0 Performed By: #### A 1C #### [facility] [address] [place] [address] Dr. Bebeto Williamson Glucose [Mass/Vol] 114 mg/dL Normal [facility] Comment on above: Performed By: #### A 1C #### [facility] [address] [place] [address] Dr. Bebeto Williamson HbA1c (Bld) [Mass fraction] 5.6 % Normal 4.5-6.2 [facility] Comment on above: Performed By: #### A 1C #### [facility] [address] [address] [address] Bebeto Williamson IRONon 07-25-2022 Iron [Mass/Vol] 60.0 ug/dL Normal 50.0-170.0 [facility] Comment on above: Performed By: #### V ITB12, IRON #### [facility] [address] [address] [address] Bebeto Williamson LIPID PROFILEon 07-25-2022 CHOL-HDL RATIO NORM SEE BELOW Normal [facility] Comment on above: Result Comment: 3.3 - 4.4 LOW RISK 4.4 - 7.1 AVERAGE RISK 7.1 - 11.0 MODERATE RISK >11.0 HIGH RISK Performed By: #### C MP, LIPID #### [facility] [address] [place] [address] Dr. Bebeto Williamson Cholesterol [Mass/Vol] 144 mg/dL Normal <=200 [facility] Comment on above: Performed By: #### C MP, LIPID #### [facility] [address] [address] [address] Bebeto Williamson Cholesterol in HDL [Mass/Vol] 39 mg/dL Critically low 40 -60 [facility] Comment on above: Performed By: #### C MP, LIPID #### [facility] [address] [address] [address] Bbeeto Williamson Cholesterol in LDL [Mass/Vol] 74.6 mg/dL Normal [facility] Comment on above: Performed By: #### C MP, LIPID #### [facility] [address] [address] [address] Bebeto Williamson Cholesterol.total/Cholestero l in HDL [Mass ratio] 3.7 {ratio} Normal [facility] Comment on above: Performed By: #### C MP, LIPID #### [facility] [address] [address] [address] Bebeto Williamson HDL NORMAL > or = 60 mg/dl - LO W CARDIOVASCULAR RISK <40 mg/dl - HIGH CARDIOVASCULAR RISK Normal [facility] Comment on above: Performed By: #### C MP, LIPID #### [facility] [address] [address] [address] Bebeto Williamson LDL CALC NORMAL SEE BELOW Normal [facility] Comment on above: Result Comment: <100 mg/dl OPTIMAL 100 - 129 mg/dl NEAR OR ABOVE OPTIMAL 130 - 159 mg/dl BORDERLINE HIGH 160 - 189 mg/dl HIGH >190 mg/dl VERY HIGH Performed By: #### C MP, LIPID #### [facility] [address] [address] [address] Bebeto Williamson Triglyceride [Mass/Vol] 152 mg/dL Critically high <=150 [facility] Comment on above: Performed By: #### C MP, LIPID #### [facility] [address] [place] [address] Dr. Bebeto Williamson VLDL CALC 30.4 mg/dL Normal [facility] Comment on above: Performed By: #### C MP, LIPID #### [facility] [address] [place] [address] Dr. Bebeto Williamson PROF 14(COMP METB)on 023 Albumin [Mass/Vol] 3.7 g/dL Normal 3.4-5.0 [facility] Comment on above: Performed By: #### C MP, LIPID #### [facility] [address] [place] [address] Dr. Bebeto Williamson Albumin/Globulin [Mass ratio] 0.9 {ratio} Normal [facility] Comment on above: Performed By: #### C MP, LIPID #### [facility] [address] [place] [address] Dr. Bebeto Williamson ALP [Catalytic activity/Vol] 90 U/L Normal 46-116 [facility] Comment on above: Performed By: #### C MP, LIPID #### [facility] [address] [place] [address] Dr. Bebeto Williamson ALT [Catalytic activity/Vol] 38 U/L Normal 14-59 [facility] Comment on above: Performed By: #### C MP, LIPID #### [facility] [address] [place] [address] Dr. Bebeto Williamson Anion gap [Moles/Vol] 12.1 mmol/L Normal [facility] Comment on above: Performed By: #### C MP, LIPID #### [facility] [address] [place] [address] Dr. Bebeto Williamson AST [Catalytic activity/Vol] 26 U/L Normal 15-37 [facility] Comment on above: Performed By: #### C MP, LIPID #### [facility] [address] [place] [address] Dr. Bebeto Williamson Bilirubin [Mass/Vol] 0.3 mg/dL Normal 0.2-1.0 [facility] Comment on above: Performed By: #### C MP, LIPID #### [facility] [address] [place] [address] Dr. Bebeto Williamson Calcium [Mass/Vol] 9.3 mg/dL Normal 8.5-10.1 [facility] Comment on above: Performed By: #### C MP, LIPID #### [facility] [address] [place] [address] Dr. Bebeto Williamson Chloride [Moles/Vol] 107 mmol/L Normal 98-107 [facility] Comment on above: Performed By: #### C MP, LIPID #### [facility] [address] [place] [address] Dr. Bebeto Williamson CO2 [Moles/Vol] 27.9 mmol/L Normal 21.0-32.0 [facility] Comment on above: Performed By: #### C MP, LIPID #### [facility] [address] [place] [address] Dr. Bebeto Williamson Creatinine [Mass/Vol] 0.95 mg/dL Normal 0.55-1.02 [facility] Comment on above: Performed By: #### C MP, LIPID #### [facility] [address] [place] [address] Dr. Bebeto Williamson EGFR-AF TRINIDADIAN >60 Normal >=60 [facility] Comment on above: Performed By: #### C MP, LIPID #### [facility] [address] [place] [address] Dr. Bebeto Williamson EGFR-NON AF TRINIDADIAN 60 mL/min/1.73m2 Normal >=60 [facility] Comment on above: Performed By: #### C MP, LIPID #### [facility] [address] [place] [address] Dr. Bebeto Williamson Globulin (S) [Mass/Vol] 3.9 g/dL Normal [facility] Comment on above: Performed By: #### C MP, LIPID #### [facility] [address] [place] [address] Dr. Bebeto Williamson Glucose [Mass/Vol] 108 mg/dL Critically high 74-106 [facility] Comment on above: Performed By: #### C MP, LIPID #### [facility] [address] [place] [address] Dr. Bebeto Williamson Potassium [Moles/Vol] 4.0 mmol/L Normal 3.5-5.1 [facility] Comment on above: Performed By: #### C MP, LIPID #### [facility] [address] [place] [address] Dr. Bebeto Williamson Protein [Mass/Vol] 7.6 g/dL Normal 6.4-8.2 [facility] Comment on above: Performed By: #### C MP, LIPID #### [facility] [address] [place] [address] Dr. Bebeto Williamson Sodium [Moles/Vol] 143 mmol/L Normal 136-145 [facility] Comment on above: Performed By: #### C MP, LIPID #### [facility] [address] [place] [address] Dr. Bebeto Williamson Urea nitrogen [Mass/Vol] 15.0 mg/dL Normal 7.0-18.0 [facility] Comment on above: Performed By: #### C MP, LIPID #### [facility] [address] [place] [address] Dr. Bebeto Williamson Urea nitrogen/Creatinine [Mass ratio] 15.8 mg/mg Normal [facility] Comment on above: Performed By: #### C MP, LIPID #### [facility] [address] [place] [address] Dr. Bebeto Williamson UA RANDOM W/MICROSCOPICon BACTERIA NONE SEEN Normal NONE SEEN [facility] Comment on above: Performed By: #### A 1C #### [facility] [address] [place] [address] Dr. Bebeto Williamson Bilirubin Ql (U) Negative Normal NEGATIVE [facility] Comment on above: Performed By: #### A 1C #### [facility] [address] [place] [address] Dr. Bebeto Williamson CAST NONE SEEN Normal NONE SEEN [facility] Comment on above: Performed By: #### A 1C #### [facility] [address] [place] [address] Dr. Bebeto Williamson Clarity (U) CLEAR Normal CLEAR [facility] Comment on above: Performed By: #### A 1C #### [facility] [address] [place] [address] Dr. Bebeto Williamson Color (U) YELLOW Normal YELLOW [facility] Comment on above: Performed By: #### A 1C #### [facility] [address] [place] [address] Dr. Bebeto Williamson Crystals LM Nom (Urine sed) NONE SEEN Normal NONE SEE N [facility] Comment on above: Performed By: #### A 1C #### [facility] [address] [place] [address] Dr. Bebeto Williamson Epithelial cells LM Ql (Urin e sed) NONE SEEN Normal NONE SEEN /RARE [facility] Comment on above: Performed By: #### A 1C #### [facility] [address] [place] [address] Dr. Bebeto Williamson Glucose Ql (U) Negative Normal NEGATIVE The [facility] Comment on above: Performed By: #### A 1C #### [facility] [address] [place] [address] Dr. Bebeto Williamson Hemoglobin Ql (U) Negative Normal NEGATIVE The [facility] Comment on above: Performed By: #### A 1C #### [facility] [address] [place] [address] Dr. Bebeto Williamson Ketones Ql (U) Negative Normal NEGATIVE The [facility] Comment on above: Performed By: #### A 1C #### [facility] [address] [place] [address] Dr. Bebeto Williamson LEUKOCYTES Negative Normal NEGATIVE [facility] Comment on above: Performed By: #### A 1C #### [facility] [address] [place] [address] Dr. Bebeto Williamson MUCOUS NONE SEEN Normal NONE SEEN [facility] Comment on above: Performed By: #### A 1C #### [facility] [address] [place] [address] Dr. Bebeto Williamson Nitrite Ql (U) Negative Normal NEGATIVE The [facility] Comment on above: Performed By: #### A 1C #### [facility] [address] [place] [address] Dr. Bebeto Williamson pH (U) 5.5 [pH] Normal 5-9 [facility] Comment on above: Performed By: #### A 1C #### [facility] [address] [place] [address] Dr. Bebeto Williamson RBC NONE SEEN Abnormal 0-2 [facility] Comment on above: Performed By: #### A 1C #### [facility] [address] [place] [address] Dr. Bebeto Williamson SPEC GRAVITY 1.030 Abnormal 1.005-<=1.025 The [facility] Comment on above: Performed By: #### A 1C #### [facility] [address] [place] [address] Dr. Bebeto Williamson UA PROTEIN Negative Normal NEGATIVE/ TRACE [facility] Comment on above: Performed By: #### A 1C #### [facility] [address] [place] [address] Dr. Bebeto Williamson Urobilinogen Qn (U) 0.2 {Katerin'U}/dL Normal 0.2 - 1. 0 [facility] Comment on above: Performed By: #### A 1C #### [facility] [address] [place] [address] Dr. Bebeto Williamson WBC NONE SEEN Normal NONE SEEN [facility] Comment on above: Performed By: #### A 1C #### [facility] [address] [place] [address] Dr. Bebeto Williamson VITAMIN B12on 07-25-2022 Cobalamin (Vitamin B12) [Mass/Vol] 1684.0 pg/mL Critically high 193.0-986.0 [facility] Comment on above: Performed By: #### V ITB12, IRON #### [facility] [address] [place] [address] Dr. Bebeto Williamson PROF CHEM 8 (BAS METB)on Anion gap [Moles/Vol] 12.2 mmol/L Normal [facility] Comment on above: Performed By: #### B MP #### [facility] [address] [place] [address] Dr. Bebeto Williamson Calcium [Mass/Vol] 8.9 mg/dL Normal 8.5-10.1 [facility] Comment on above: Performed By: #### B MP #### [facility] [address] [place] [address] Dr. Bebeto Williamson Chloride [Moles/Vol] 105 mmol/L Normal 98-107 [facility] Comment on above: Performed By: #### B MP #### [facility] [address] [place] [address] Dr. Bebeto Williamson CO2 [Moles/Vol] 29.6 mmol/L Normal 21.0-32.0 [facility] Comment on above: Performed By: #### B MP #### [facility] [address] [place] [address] Dr. Bebeto Williamson Creatinine [Mass/Vol] 0.95 mg/dL Normal 0.55-1.02 [facility] Comment on above: Performed By: #### B MP #### [facility] [address] [place] [address] Dr. Bebeto Williamson EGFR-AF TRINIDADIAN >60 Normal >=60 [facility] Comment on above: Performed By: #### B MP #### [facility] [address] [address] [address] Bebeto Williamson EGFR-NON AF TRINIDADIAN 60 mL/min/1.73m2 Normal >=60 [facility] Comment on above: Performed By: #### B MP #### [facility] [address] [address] [address] Bebeto Williamson Glucose [Mass/Vol] 101 mg/dL Normal 74-106 [facility] Comment on above: Performed By: #### B MP #### [facility] [address] [address] [address] Bebeto Williamson Potassium [Moles/Vol] 3.8 mmol/L Normal 3.5-5.1 [facility] Comment on above: Performed By: #### B MP #### [facility] [address] [address] [address] Bebeto Williamson Sodium [Moles/Vol] 143 mmol/L Normal 136-145 [facility] Comment on above: Performed By: #### B MP #### [facility] [address] [place] [address] Dr. Bebeto Williamson Urea nitrogen [Mass/Vol] 16.0 mg/dL Normal 7.0-18.0 [facility] Comment on above: Performed By: #### B MP #### [facility] [address] [place] [address] Dr. Bebeto Williamson Urea nitrogen/Creatinine [Mass ratio] 16.8 mg/mg Normal [facility] Comment on above: Performed By: #### B MP #### [facility] [address] [address] [address] Bebeto Williamson CBC AUTO DIFFon 11-21-2021 BASO # 0.1 103/ul Normal 0.0-0.1 [facility] Comment on above: Performed By: #### A 1C #### [facility] [address] [place] [address] Dr. Bebeto Williamson Basophils/100 WBC (Bld) 1.0 % Normal 0.2-2.0 [facility] Comment on above: Performed By: #### A 1C #### [facility] [address] [place] [address] Dr. Bebeto Williamson EO # 0.2 103/ul Normal 0.0-0.7 [facility] Comment on above: Performed By: #### A 1C #### [facility] [address] [place] [address] Dr. Bebeto Williamson Eosinophils/100 WBC (Bld) 3.3 % Normal 0.9-7.0 [facility] Comment on above: Performed By: #### A 1C #### [facility] [address] [place] [address] Dr. Bebeto Williamson Erythrocyte distribution wid th (RBC) [Ratio] 13.8 % Normal 11.0-15.0 [facility] Comment on above: Performed By: #### A 1C #### [facility] [address] [place] [address] Dr. Bebeto Williamson Hematocrit (Bld) [Volume fraction] 38.8 % Normal 3 6.0-48.0 [facility] Comment on above: Performed By: #### A 1C #### [facility] [address] [place] [address] Dr. Bebeto Williamson Hemoglobin (Bld) [Mass/Vol] 12.5 g/dL Normal 12.0-16. 0 [facility] Comment on above: Performed By: #### A 1C #### [facility] [address] [place] [address] Dr. Bebeto Williamson IG # 0.02 10e3/ul Normal 0.00-0.03 [facility] Comment on above: Performed By: #### A 1C #### [facility] [address] [place] [address] Dr. Bebeto Williamson IG % 0.3 % Normal 0.0-0.5 [facility] Comment on above: Performed By: #### A 1C #### [facility] [address] [place] [address] Dr. Bebeto Williamson LYMPH # 1.9 103/ul Normal 1.2-3.8 [facility] Comment on above: Performed By: #### A 1C #### [facility] [address] [place] [address] Dr. Bebeto Williamson Lymphocytes/100 WBC (Bld) 29.6 % Normal 20.5-60.0 [facility] Comment on above: Performed By: #### A 1C #### [facility] [address] [place] [address] Dr. Bebeto Williamson MANUAL DIFF REQ NO Normal [facility] Comment on above: Performed By: #### A 1C #### [facility] [address] [place] [address] Dr. Bebeto Williamson MCH (RBC) [Entitic mass] 28.0 pg Normal 26.7-34.0 [facility] Comment on above: Performed By: #### A 1C #### [facility] [address] [place] [address] Dr. Bebeto Williamson MCHC (RBC) [Mass/Vol] 32.2 g/dL Normal 29.9-35.2 [facility] Comment on above: Performed By: #### A 1C #### [facility] [address] [place] [address] Dr. Bebeto Williamson MCV (RBC) [Entitic vol] 86.8 fL Normal 81.0-99.0 [facility] Comment on above: Performed By: #### A 1C #### [facility] [address] [place] [address] Dr. Bebeto Williamson MONO # 0.4 103/ul Normal 0.3-0.8 [facility] Comment on above: Performed By: #### A 1C #### [facility] [address] [place] [address] Dr. Bebeto Williamson Monocytes/100 WBC (Bld) 5.7 % Normal 1.7-12.0 [facility] Comment on above: Performed By: #### A 1C #### [facility] [address] [place] [address] Dr. Bebeto Williamson NEUT # 3.8 103/ul Normal 1.4-6.5 [facility] Comment on above: Performed By: #### A 1C #### [facility] [address] [address] [address] Bebeto Williamson Neutrophils/100 WBC (Bld) 60.1 % Normal 43.0-75.0 [facility] Comment on above: Performed By: #### A 1C #### [facility] [address] [address] [address] Bebeto Williamson Platelet mean volume (Bld) [ Entitic vol] 11.0 fL Normal 9.5-13.5 [facility] Comment on above: Performed By: #### A 1C #### [facility] [address] [address] [address] Bebeto Williamson PLT 264 103/ul Normal 150-450 [facility] Comment on above: Performed By: #### A 1C #### [facility] [address] [place] [address] Dr. Bebeto Williamson RBC 4.47 106/ul Normal 4.20-5.40 [facility] Comment on above: Performed By: #### A 1C #### [facility] [address] [place] [address] Dr. Bebeto Williamson WBC 6.3 103/ul Normal 4.0-11.0 [facility] Comment on above: Performed By: #### A 1C #### [facility] [address] [place] [address] Dr. Bebeto Williamson GLYCOHEMOGLOBIN A1Con 2021 ADA RECOMMENDATION SEE BELOW Normal [facility] Comment on above: Result Comment: ADA RECOMMENDED LIMIT 4.0 - 6.0 ADA THERAPEUTIC TARGET < 7.0 ACTION SUGGESTED > 7.0 Performed By: #### A 1C #### [facility] [address] [place] [address] Dr. Bebeto Williamson Glucose [Mass/Vol] 105 mg/dL Normal [facility] Comment on above: Performed By: #### A 1C #### [facility] [address] [place] [address] Dr. Bebeto Williamson HbA1c (Bld) [Mass fraction] 5.3 % Normal 4.5-6.2 [facility] Comment on above: Performed By: #### A 1C #### [facility] [address] [address] [address] Bebeto Williamson IRONon 11-21-2021 Iron [Mass/Vol] 59.0 ug/dL Normal 50.0-170.0 [facility] Comment on above: Performed By: #### A 1C #### [facility] [address] [address] [address] Bebeto Williamson LIPID PROFILEon 11-21-2021 CHOL-HDL RATIO NORM SEE BELOW Normal [facility] Comment on above: Result Comment: 3.3 - 4.4 LOW RISK 4.4 - 7.1 AVERAGE RISK 7.1 - 11.0 MODERATE RISK >11.0 HIGH RISK Performed By: #### C MP, LIPID #### [facility] [address] [address] [address] Bebeto Williamson Cholesterol [Mass/Vol] 139 mg/dL Normal <=200 [facility] Comment on above: Performed By: #### C MP, LIPID #### [facility] [address] [address] [address] Bebeto Williamson Cholesterol in HDL [Mass/Vol] 35 mg/dL Critically low 40 -60 [facility] Comment on above: Performed By: #### C MP, LIPID #### [facility] [address] [address] [address] Bebeto Williamson Cholesterol in LDL [Mass/Vol] 69.6 mg/dL Normal [facility] Comment on above: Performed By: #### C MP, LIPID #### [facility] [address] [address] [address] Bebeto Williamson Cholesterol.total/Cholestero l in HDL [Mass ratio] 4.0 {ratio} Normal [facility] Comment on above: Performed By: #### C MP, LIPID #### [facility] [address] [address] [address] Bebeto Williamson HDL NORMAL > or = 60 mg/dl - LO W CARDIOVASCULAR RISK <40 mg/dl - HIGH CARDIOVASCULAR RISK Normal [facility] Comment on above: Performed By: #### C MP, LIPID #### [facility] [address] [address] [address] Bebeto Williamson LDL CALC NORMAL SEE BELOW Normal [facility] Comment on above: Result Comment: <100 mg/dl OPTIMAL 100 - 129 mg/dl NEAR OR ABOVE OPTIMAL 130 - 159 mg/dl BORDERLINE HIGH 160 - 189 mg/dl HIGH >190 mg/dl VERY HIGH Performed By: #### C MP, LIPID #### [facility] [address] [address] [address] Bebeto Williamson Triglyceride [Mass/Vol] 172 mg/dL Critically high <=150 [facility] Comment on above: Performed By: #### C MP, LIPID #### [facility] [address] [address] [address] Bebeto Williamson VLDL CALC 34.4 mg/dL Normal [facility] Comment on above: Performed By: #### C MP, LIPID #### [facility] [address] [place] [address] Dr. Bebeto Williamson PROF 14(COMP METB)on 022 Albumin [Mass/Vol] 3.8 g/dL Normal 3.4-5.0 [facility] Comment on above: Performed By: #### C MP, LIPID #### [facility] [address] [place] [address] Dr. Bebeto Williamson Albumin/Globulin [Mass ratio] 1.1 {ratio} Normal [facility] Comment on above: Performed By: #### C MP, LIPID #### [facility] [address] [place] [address] Dr. Bebeto Williamson ALP [Catalytic activity/Vol] 96 U/L Normal 46-116 [facility] Comment on above: Performed By: #### C MP, LIPID #### [facility] [address] [place] [address] Dr. Bebeto Williamson ALT [Catalytic activity/Vol] 25 U/L Normal 14-59 [facility] Comment on above: Performed By: #### C MP, LIPID #### [facility] [address] [address] [address] Bebeto Williamson Anion gap [Moles/Vol] 11.8 mmol/L Normal [place] Comment on above: Performed By: #### C MP, LIPID #### [facility] [address] [address] [address] Bebeto Williamson AST [Catalytic activity/Vol] 20 U/L Normal 15-37 [facility] Comment on above: Performed By: #### C MP, LIPID #### [facility] [address] [address] [address] Bebeto Williamson Bilirubin [Mass/Vol] 0.4 mg/dL Normal 0.2-1.0 [facility] Comment on above: Performed By: #### C MP, LIPID #### [facility] [address] [address] [address] Bebeto Williamson Calcium [Mass/Vol] 8.8 mg/dL Normal 8.5-10.1 [facility] Comment on above: Performed By: #### C MP, LIPID #### [facility] [address] [place] [address] Dr. Bebeto Williamson Chloride [Moles/Vol] 106 mmol/L Normal 98-107 [facility] Comment on above: Performed By: #### C MP, LIPID #### [facility] [address] [place] [address] Dr. Bebeto Williamson CO2 [Moles/Vol] 27.0 mmol/L Normal 21.0-32.0 [facility] Comment on above: Performed By: #### C MP, LIPID #### [facility] [address] [place] [address] Dr. Bebeto Williamson Creatinine [Mass/Vol] 0.97 mg/dL Normal 0.55-1.02 [facility] Comment on above: Performed By: #### C MP, LIPID #### [facility] [address] [place] [address] Dr. Bebeto Williamson EGFR-AF TRINIDADIAN >60 Normal >=60 [facility] Comment on above: Performed By: #### C MP, LIPID #### [facility] [address] [place] [address] Dr. Bebeto Williamson EGFR-NON AF TRINIDADIAN 59 mL/min/1.73m2 Critically low >=60 [facility] Comment on above: Performed By: #### C MP, LIPID #### [facility] [address] [place] [address] Dr. Bebeto Williamson Globulin (S) [Mass/Vol] 3.4 g/dL Normal [facility] Comment on above: Performed By: #### C MP, LIPID #### [facility] [address] [place] [address] Dr. Bebeto Williamson Glucose [Mass/Vol] 103 mg/dL Normal 74-106 [facility] Comment on above: Performed By: #### C MP, LIPID #### [facility] [address] [place] [address] Dr. Bebeto Williamson Potassium [Moles/Vol] 3.8 mmol/L Normal 3.5-5.1 [facility] Comment on above: Performed By: #### C MP, LIPID #### [facility] [address] [place] [address] Dr. Bebeto Williamson Protein [Mass/Vol] 7.2 g/dL Normal 6.4-8.2 [facility] Comment on above: Performed By: #### C MP, LIPID #### [facility] [address] [place] [address] Dr. Bebeto Williamson Sodium [Moles/Vol] 141 mmol/L Normal 136-145 [facility] Comment on above: Performed By: #### C MP, LIPID #### [facility] [address] [place] [address] Dr. Bebeto Williamson Urea nitrogen [Mass/Vol] 11.0 mg/dL Normal 7.0-18.0 [facility] Comment on above: Performed By: #### C MP, LIPID #### [facility] [address] [place] [address] Dr. Bebeto Williamson Urea nitrogen/Creatinine [Mass ratio] 11.3 mg/mg Normal [facility] Comment on above: Performed By: #### C MP, LIPID #### [facility] [address] [place] [address] Dr. Bebeto Williamson URIC ACID SERUMon 11-21-2021 Urate [Mass/Vol] 7.3 mg/dL Critically high 2.6-6.0 [facility] Comment on above: Performed By: #### A 1C #### [facility] [address] [place], [place] [id number] Dr. Bebeto Williamson VITAMIN B12on 11-21-2021 Cobalamin (Vitamin B12) [Mass/Vol] 2123.0 pg/mL Critically high 193.0-986.0 [facility] Comment on above: Performed By: #### A 1C #### [facility] [address] [place] [address] Dr. Bebeto Williamson Physician Referralon 022 Physician Referral [id number] Normal [facility] KNEE RIGHT 1 OR 2 VWSon KNEE RIGHT 1 OR 2 VWS [facility] Department of Radiology [address] [place] [id number] Patient Name: MICHELLE BE : 1960 Sex: F Age: Race: White Pt. Location: 84 Patient Status: O Ordered Date: 02/08/2019 10:40:00 AM Completed Date: 02/08/2019 10:38 AM Requesting Provider: AHSAN BINGHAM Attending Provider: AHSAN BINGHAM Report Copy To: Signs & Symptoms: S82.001A Unsp fracture of right patella, init for clos fx I10 History: [place] Comments: , , , Ordering Provider - AHSAN BINGHAM PA-C , Exam: KNEE RIGHT 1 OR 2 VWS KNEE RIGHT 1 OR 2 VWS 02/08/2019 10:38 AM EST SIGNS AND SYMPTOMS: S82.001A Unsp fracture of right patella, init for clos fx I10 TECHNOLOGIST COMMENTS: ortho follow up rt knee cap fracture with hardware 06/2018 QUESTION FOR THE RADIOLOGIST: , , , Ordering Provider - AHSAN BINGHAM PA-C , PROTOCOL: AP(PA) and Lateral views were obtained. 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 Continuation of healing along the patellar fracture in good alignment 2. Moderate medial weightbearing arthritis Electronically signed by:Debra Del Cid. Transcribed by: [email or web address], User Resident: Electronically Signed by: DEBRA DEL CID @ 02/08/2019 11:16 AM Normal [facility] Comment on above: Order Comment: , Mabel ws (X-RAY, KNEE): Radiologic Protocol , Weight Bearing?: N , With or Without Brace/Cast/Collar: With , Views (X-RAY, KNEE): Radiologic Protocol , Weight Bearing?: N , With or Without Brace/Cast/Collar: With , , , Ordering Provider - AHSAN BINGHAM PA-C , KNEE RIGHT 1 OR 2 [facility] KNEE RIGHT 1 OR 2 [facility] Department of Radiology [address] [place] [id number] Patient Name: MICHELLE BE : 1960 Sex: F Age: Race: White Pt. Location: 84 Patient Status: Ordered Date: 12/07/2018 10:20:00 AM Completed Date: 12/07/2018 10:20 AM Requesting Provider: AHSAN BINGHAM Attending Provider: Report Copy To: Signs & Symptoms: S82.001A Unsp fracture of right patella, init for clos fx I10 History: [place] Comments: , , , Ordering Provider - AHSAN BINGHAM PA-C , Exam: KNEE RIGHT 1 OR 2 VWS KNEE RIGHT 1 OR 2 VWS 12/07/2018 10:20 AM EDT SIGNS AND SYMPTOMS: S82.001A Unsp fracture of right patella, init for clos fx I10 TECHNOLOGIST COMMENTS: ortho follow up. right knee surgery july 02 2018 QUESTION FOR THE RADIOLOGIST: , , , Ordering Provider - AHSAN BINGHAM PA-C , PROTOCOL: AP(PA) and Lateral views were obtained. COMPARISON: October 06, 2018 FINDINGS: Soft tissues: No significant focal soft tissue swelling. Bones: Multiple screws are seen transfixing the right patellar fracture in satisfactory alignment. Bony spurring in the medial tibial plateau and femoral condyle as well as the articular surface of the patella. Joints: Joint space narrowing in the medial compartment of the right knee. IMPRESSION: 1. Degenerative arthritis of the right knee mainly seen in the medial compartment. 2. Hardware fixation for right patellar fracture in good alignment and no complications. Electronically signed by:Tomasz Stoll. Transcribed by: [email or web address], User Resident: Electronically Signed by: TOMASZ STOLL @ 12/07/2018 11:14 AM Normal [facility] Comment on above: Order Comment: , Rossie ws (X-RAY, KNEE): Radiologic Protocol , Weight Bearing?: N , With or Without Brace/Cast/Collar: With , Views (X-RAY, KNEE): Radiologic Protocol , Weight Bearing?: N , With or Without Brace/Cast/Collar: With , , , Ordering Provider - AHSAN BINGHAM PA-C , KNEE RIGHT 1 OR 2 VWSon 070 KNEE RIGHT 1 OR 2 S [facility] Department of Radiology [address] [place] [phone] Patient Name: MICHELLE BE : 1960 Sex: F Age: Race: White Pt. Location: Patient Status: O Ordered Date: 10/06/2018 1:40:00 PM Completed Date: 10/06/2018 01:46 PM Requesting Provider: AHSAN BINGHAM Attending Provider: AHSAN BINGHAM Report Copy To: ADELAIDA CARRION Signs & Symptoms: S82.014D Nondisp osteochon fx r patella, 7thD I10 History: Shira Comments: , , , Ordering Provider - AHSAN BINGHAM PA-C , Exam: KNEE RIGHT 1 OR 2 VWS KNEE RIGHT 1 OR 2 VWS 10/06/2018 1:46 PM EDT SIGNS AND SYMPTOMS: S82.014D Nondisp osteochon fx r patella, 7thD I10 TECHNOLOGIST COMMENTS: ortho check for right knee QUESTION FOR THE RADIOLOGIST: , , , Ordering Provider - AHSAN BINGHAM PA-C , PROTOCOL: AP(PA) and Lateral views were obtained. COMPARISON: August 26, 2018 FINDINGS: Soft tissues: Bones: Screw fixation of superior pole patellar fracture alignment and hardware unchanged incomplete healing Joints: Medial joint space compartment narrowing and spurring consistent with osteoarthritis IMPRESSION: Bones: Screw fixation of superior pole patellar fracture alignment and hardware unchanged incomplete healing. Medial joint space compartment narrowing and spurring consistent with osteoarthritis Electronically signed by:Anup Ellison. Transcribed by: [email or web address], User Resident: Electronically Signed by: ANUP ELLISON @ 10/06/2018 02:48 PM Normal [facility] Comment on above: Order Comment: , Vie ws (X-RAY, KNEE): Radiologic Protocol , Weight Bearing?: N , With or Without Brace/Cast/Collar: With , Views (X-RAY, KNEE): Radiologic Protocol , Weight Bearing?: N , With or Without Brace/Cast/Collar: With , , , Ordering Provider - AHSAN BINGHAM PA-C , KNEE RIGHT 1 OR 2 [facility] 08-05 KNEE RIGHT 1 OR 2 [facility] Department of Radiology [address] [place] [phone] Patient Name: MICHELLE BE : 1960 Sex: F Age: Race: White Pt. Location: Patient Status: Ordered Date: 08/26/2018 2:30:00 PM Completed Date: 08/26/2018 02:54 PM Requesting Provider: AHSAN BINGHAM Attending Provider: Report Copy To: Signs & Symptoms: S82.001A Unsp fracture of right patella, init for clos fx I10 History: [place] Comments: , , , Ordering Provider - AHSAN BINGHAM PA-C , Exam: KNEE RIGHT 1 OR 2 VWS KNEE RIGHT 1 OR 2 VWS 08/26/2018 2:54 PM EDT SIGNS AND SYMPTOMS: S82.001A Unsp fracture of right patella, init for clos fx I10 TECHNOLOGIST COMMENTS: right knee pain surgery f/u QUESTION FOR THE RADIOLOGIST: , , , Ordering Provider - AHSAN BINGHAM PA-C , PROTOCOL: AP(PA) and Lateral views were obtained. COMPARISON: None FINDINGS: Study obtained in brace. Screw fixation of patellar fracture. Alignment and hardware unchanged incomplete healing. Arthritic changes in the knee with narrowing of the lateral joint space compartment. Possible small joint effusion. IMPRESSION: 1. Screw fixation of patellar fracture alignment and hardware unchanged. Incomplete healing 2. Degenerative changes in the knee most pronounced in the medial joint space compartment. 3. Small joint effusion Electronically signed by:Anup Ellison. Transcribed by: [email or web address], User Resident: Electronically Signed by: ANUP ELLISON @ 08/26/2018 04:56 PM Normal [facility] Comment on above: Order Comment: , Rossie ws (X-RAY, KNEE): Radiologic Protocol , Weight Bearing?: N , With or Without Brace/Cast/Collar: With , Views (X-RAY, KNEE): Radiologic Protocol , Weight Bearing?: N , With or Without Brace/Cast/Collar: With , , , Ordering Provider - AHSAN BINGHAM PA-C , KNEE RIGHT 1 OR 2 VWSon 07-06 KNEE RIGHT 1 OR 2 VWS [facility] Department of Radiology [address] [place] [phone] Patient Name: MICHELLE BE : 1960 Sex: F Age: Race: White Pt. Location: Patient Status: Ordered Date: 07/29/2018 2:10:00 PM Completed Date: 07/29/2018 02:12 PM Requesting Provider: AHSAN BINGHAM Attending Provider: Report Copy To: Signs & Symptoms: S82.001A Unsp fracture of right patella, init for clos fx I10 History: Shira Comments: , , , Ordering Provider - AHSAN BINGHAM PA-C , Exam: KNEE RIGHT 1 OR 2 VWS KNEE RIGHT 1 OR 2 VWS 07/29/2018 2:12 PM EDT SIGNS AND SYMPTOMS: S82.001A Unsp fracture of right patella, init for clos fx I10 TECHNOLOGIST COMMENTS: rt patella fx 07/02/18 check healing QUESTION FOR THE RADIOLOGIST: , , , Ordering Provider - AHSAN BINGHAM PA-C , PROTOCOL: AP(PA) and Lateral views were obtained. COMPARISON: July 15, 2018 FINDINGS: 3 screw fixation of patellar fracture involving proximal pole. Alignment and hardware unchanged. Incomplete healing. Small suprapatellar effusion slightly increased since previous exam. Mild prepatellar soft tissue swelling suspect some swelling in Hoffa's fat pad. No other fractures in the knee. Osteoarthritis with narrowing of the medial joint space compartment and medial tibial and femoral spurring. IMPRESSION: 1. Transverse fracture superior pole of the patella fixed with 3 screws alignment and hardware unchanged. Incomplete healing 2. Small suprapatellar effusion slightly increased since prior study possibly some edema in Hoffa's fat pad. 3. Osteoarthritis medial joint space compartment Electronically signed by:Anup Ellison. Transcribed by: [email or web address], User Resident: Electronically Signed by: ANUP ELLISON @ 07/29/2018 03:41 PM Normal [facility] Comment on above: Order Comment: , Vie ws (X-RAY, KNEE): Radiologic Protocol , Weight Bearing?: N , With or Without Brace/Cast/Collar: With , Views (X-RAY, KNEE): Radiologic Protocol , Weight Bearing?: N , With or Without Brace/Cast/Collar: With , , , Ordering Provider - AHSAN BINGHAM PA-C , KNEE RIGHT 3 [facility] 9 KNEE RIGHT 3 [facility] Department of Radiology [address] [place] [phone] Patient Name: MICHELLE BE : 1960 Sex: F Age: Race: White Pt. Location: Patient Status: Ordered Date: 07/15/2018 8:45:00 AM Completed Date: 07/15/2018 08:47 AM Requesting Provider: AHSAN BINGHAM Attending Provider: Report Copy To: Signs & Symptoms: S82.001A Unsp fracture of right patella, init for clos fx I10 History: [place] Comments: , , , Ordering Provider - AHSAN BINGHAM PA-C , Exam: KNEE RIGHT 3 VWS KNEE RIGHT 3 VWS 07/15/2018 8:47 AM EDT SIGNS AND SYMPTOMS: S82.001A Unsp fracture of right patella, init for clos fx I10 TECHNOLOGIST COMMENTS: ortho follow up rt knee fracture with hardware 01/22/2018 QUESTION FOR THE RADIOLOGIST: , , , Ordering Provider - AHSAN BINGHAM PA-C , PROTOCOL: AP,Lateral and Tangential views were obtained. COMPARISON: None FINDINGS: Open reduction and internal fixation of proximal pole patellar fracture with multiple screws. Alignment unchanged. Incomplete healing. Hardware unchanged in position. No other fractures noted degenerative changes in the right knee with joint space narrowing especially in the medial joint space compartment IMPRESSION: 1. Screw fixation of superior pole patella fracture alignment and hardware unchanged incomplete healing 2. Degenerative changes in the knee Electronically signed by:Anup Ellison. Transcribed by: [email or web address], User Resident: Electronically Signed by: ANUP ELLISON @ 07/15/2018 03:31 PM Normal [facility] Comment on above: Order Comment: , Vie ws (X-RAY, KNEE): Radiologic Protocol , Weight Bearing?: N , With or Without Brace/Cast/Collar: With , Views (X-RAY, KNEE): Radiologic Protocol , Weight Bearing?: N , With or Without Brace/Cast/Collar: With , , , Ordering Provider - AHSAN BINGHAM PA-C , Operative Reporton 9 Operative Report MR#: [id number] S [facility] Pt. Name: Michelle Be Room #: 0C Discharge Date: Birthdate: 1960 OPERATIVE REPORT DATE OF SURGERY: 07/02/2018 SURGEON: Suki Escalante M.D. ASSISTANTS: 1. Willi Wright MD. 2. Forrest Szymanski MD. 3. Paolo Duarte MD. PREOPERATIVE DIAGNOSIS: Right patella fracture. POSTOPERATIVE DIAGNOSIS: Right patella fracture in the superior 3rd of the patella. PROCEDURE PERFORMED: 1. Percutaneous screw fixation, right patella. 2. Removal of hardware, right patella. IMPLANTS: 2 x 4.5 Adrian partially-threaded cannulated screws. ANESTHESIA: General. FLUIDS: Per Anesthesia protocol. BLOOD LOSS: None. OPERATIVE INDICATIONS: This is a 57-year-old female, who previously had percutaneous screw fixation of the patella fracture. The patient subsequently went on to sustain a second patella fracture after healing the first patella fracture. This new patella fracture is located superior to the superior most screw used in fixation in previous surgery. Risks, benefits, and alternatives were discussed. The patient wants to proceed with removal of hardware, and open reduction and internal fixation with percutaneous screw fixation of the right patella. Informed consent was obtained. OPERATION IN DETAIL: The patient was greeted in the preoperative holding area. Informed consent was confirmed. The patient was brought back to the operating room where anesthesia was smoothly induced. The operative extremity was prepped and draped in standard sterile fashion. We began by obtaining fluoroscopy images of the right knee. We elected to remove the 2 superior most screws through the patella as they would get in the way of fixation of the current fracture. We percutaneously inserted 2 K-wires from the lateral aspect of the patella through the cannulated screws. Once this was done, we made an incision over the K-wires and then removed each of these screws using our hand screwdriver. Once this was done, we used fluoroscopy to confirm successful removal of the 2 superior screws with retained inferior screw. We then began with fixation of our current patella fracture. We inserted 2 K-wires from the superior pole of the patella down to the inferior aspect of the patella. These 2 K-wires located laterally and medially. Once this was done, fluoroscopy confirmed good position of the K-wires. We then fired 2 partially-threaded 4.5 Adrian screws over these K-wires after a skin incision was made next to the wire. One of these screws had a washer, the other did not. Once these were done and tightened, fluoroscopy confirmed good reduction of the fracture. We then irrigated each of our wounds with saline and Betadine solution. We then closed our wounds with 3-0 Vicryl and 3-0 Novafil suture. Once this was done, a sterile dressing was applied. The patient was awoken from anesthesia without complication. Dr. Escalante was present all domínguez portions of the procedure and made all decisions regarding this patient's care. POSTOPERATIVE PLAN: The patient will be weightbearing as tolerated to the right lower extremity and a hinged knee brace locked in extension all times. The patient is discharged on aspirin for DVT prophylaxis. The patient will followup with Dr. Escalante in clinic in 2 weeks. Electronically Signed by: Suki Escalante M.D. 07/04/2018 12:25 P Suki Escalante M.D. I was present for the domínguez and critical portions and I was otherwise immediately available to assist. Date Dict: 07/02/2018/04:59 P/Paolo Duarte MD Date Trans: 07/03/2018 04:28 M[place]terry [id number] Normal [facility] *ANAEROBIC CULTUREon 019 *ANAEROBIC CULTURE Clinical Report: (D) Specimen/Source: SWAB/RT KNEE Collected: 07/02/2018 13:53 Status: Final Last Updated: 07/07/2018 08:02 CULT RES (Final) No Anaerobes Isolated 5 Days Normal [facility] Comment on above: Performed By: #### 3 0312 #### [place] [address] [address] *WOUND CULTUREon 07-02-2018 *WOUND CULTURE Clinical Report: (D) Specimen/Source: WOUND/INTRAOP SPEC Collected: 07/02/2018 13:53 Status: Final Last Updated: 07/07/2018 10:13 (1) #1 RT KNEE GRAM (Final) Rare Polys No Bacteria Seen CULT RES (Final) No Growth Day 5 Normal [facility] Comment on above: Order Comment: #1 RT KNEE Performed By: #### 3 0343 #### [place] [address], [facility] KNEE RIGHT 1 OR 2 Son 06-05 KNEE RIGHT 1 OR 2 S [facility] Department of Radiology [address] [place] [phone] Patient Name: MICHELLE BE : 1960 Sex: F Age: Race: White Pt. Location: OUTP Patient Status: O Ordered Date: 07/02/2018 11:30:00 AM Completed Date: 07/02/2018 02:00 PM Requesting Provider: SUKI ESCALANTE Attending Provider: SUKI ESCALANTE Report Copy To: Signs & Symptoms: ORIF VS PERCUTANEOUS FIXATION RIGHT PATELLA History: ORIF VS PERCUTANEOUS FIXATION RIGHT PATELLA Comments: ORIF VS PERCUTANEOUS FIXATION RIGHT PATELLA Exam: KNEE RIGHT 1 OR 2 VWS KNEE RIGHT 1 OR 2 VWS 07/02/2018 2:00 PM EDT SIGNS AND SYMPTOMS: ORIF VS PERCUTANEOUS FIXATION RIGHT PATELLA TECHNOLOGIST COMMENTS: 1.58 mins of fluoro used by Dr Escalante LT knee screw fixation revision QUESTION FOR THE RADIOLOGIST: ORIF VS PERCUTANEOUS FIXATION RIGHT PATELLA PROTOCOL: AP(PA) and Lateral views were obtained. COMPARISON: None FINDINGS: Soft tissues: Bones: Joints: IMPRESSION: Documentation Electronically signed by:Debra Del Cid. Transcribed by: [email or web address], User Resident: Electronically Signed by: DEBRA DEL CID @ 07/02/2018 02:03 PM Normal [facility] Comment on above: Order Comment: ORIF VS PERCUTANEOUS FIXATION RIGHT PATELLA POC GLUCOSE LABon 07-02-2018 Glucose [Mass/Vol] 108 mg/dL High 70-100 [facility] Comment on above: Performed By: #### 8 [id number] #### [facility] [address] APTTon 06-30-2018 aPTT Coag (Bld) [Time] 30.6 s Normal 25.0-35.0 [facility] Comment on above: Result Comment: ALL RESULTS MUST BE INTERPRETED WITH RESPECT TO BLOOD DRAWING ARTIFACT OR DILUTION ERROR OF ANTICOAGULANT AT THE TIME OF SAMPLING. THE APTT SHOULD NOT BE USED TO MONITOR UNFRACTIONATED HEPARIN THERAPY, THIS LABORATORY NO LONGER HAS AN ESTABLISHED THERAPEUTIC RANGE BASED ON THE APTT. IT IS RECOMMENDED THAT THE [facility] - HEPARIN ASSAY (ANTI-XA ACTIVITY) BE USED FOR THIS PURPOSE. Performed By: #### 5 6101, 72652 #### [facility] [address] [place] [address], [facility] BASIC METABOLIC PANELon 06-05 Calcium [Mass/Vol] 9.7 mg/dL Normal 8.6-10.3 [facility] Comment on above: Performed By: #### 0 0071 #### [facility] [address] [place] [address], [facility] Chloride [Moles/Vol] 102 mmol/L Normal 98-107 [facility] Comment on above: Performed By: #### 0 0071 #### [facility] [address] [place] [address], [facility] CO2 [Moles/Vol] 28 mmol/L Normal 21-31 [facility] Comment on above: Performed By: #### 0 0071 #### [facility] [address] [place] [address], [place] Creatinine [Mass/Vol] 1.20 mg/dL Normal 0.60-1.20 [facility] Comment on above: Performed By: #### 0 0071 #### [facility] [address] [place] [address], [place] GFR/1.73 sq M predicted among blacks MDRD (S/P/Bld) [Vol rate/Area] 56 ml/min/1.73sq m Abnormal >60 [facility] Comment on above: Performed By: #### 0 0071 #### [facility] [address] [place] [address], [place] GFR/1.73 sq M predicted among non-blacks MDRD (S/P/Bld) [Vol rate/Area] 47 ml/min/1.73sq m Abnormal >60 [facility] Comment on above: Performed By: #### 0 0071 #### [facility] [address] [place] [address], [place] Glucose [Mass/Vol] 97 mg/dL Normal 70-100 [facility] Comment on above: Performed By: #### 0 0071 #### [facility] [address] [place] [address], [place] Potassium [Moles/Vol] 4.1 mmol/L Normal 3.5-5.1 [facility] Comment on above: Performed By: #### 0 0071 #### [facility] [address] [place] [address], [place] Sodium [Moles/Vol] 137 mmol/L Normal 136-145 [facility] Comment on above: Performed By: #### 0 0071 #### [facility] [address] [place] [address], [place] Urea nitrogen [Mass/Vol] 19 mg/dL Normal 7-25 [facility] Comment on above: Performed By: #### 0 0071 #### [facility] [address] [place] [address], [facility] CBC W/DIFFon 06-30-2018 ABS BASOPHILS 0.1 10*3/uL Normal 0.0-0.2 The [facility] Comment on above: Performed By: #### 5 0103 #### [facility] [address] [place] [address], [facility] ABS IMM GRANS 0.0 10*3/uL Normal 0.0-0.2 The [facility] Comment on above: Performed By: #### 5 0103 #### [facility] [address] [place] [address], [facility] ABS NEUTROPHILS 6.4 10*3/uL Normal 1.6-7.6 The [facility] Comment on above: Performed By: #### 5 3 #### [facility] [address] Basophils/100 WBC (Bld) 0.7 % Normal 0.0-1.0 T julee [facility] Comment on above: Performed By: #### 5 0103 #### [facility] [address] [place] [address], [facility] Eosinophils (Bld) [#/Vol] 0.2 10*3/uL Normal 0.0-0.5 [facility] Comment on above: Performed By: #### 5 0103 #### [facility] [address] [place] [address], [facility] Eosinophils/100 WBC (Bld) 1.5 % Normal 0.0-6.0 The [facility] Comment on above: Performed By: #### 5 0103 #### [facility] [address] Erythrocyte distribution wid th (RBC) [Ratio] 14.4 % Normal 11.5-15.0 The [facility] Comment on above: Performed By: #### 5 0103 #### [facility] [address] [place] [address], [facility] Hematocrit (Bld) [Volume fraction] 40.6 % Normal 36.0-45.0 [facility] Comment on above: Performed By: #### 3 #### [facility] [address] [place] [address], [facility] Hemoglobin (Bld) [Mass/Vol] 13.3 g/dL Normal 12.0-15. 0 The [facility] Comment on above: Performed By: #### 3 #### [facility] [address] [facility] [place] [address], [facility] IMMATURE GRANS 0.4 % Normal 0.0-1.0 The [facility] Comment on above: Performed By: #### 3 #### [facility] [address] [facility] [place] [address], [facility] Lymphocytes (Bld) [#/Vol] 2.6 10*3/uL Normal 1.2-4.0 The [facility] Comment on above: Performed By: #### 5 3 #### [facility] [address] [facility] [place] [address], [facility] Lymphocytes/100 WBC (Bld) 26.5 % Normal 20.0-45.0 The [facility] Comment on above: Performed By: #### 5 3 #### [facility] [address] [place] [address], [facility] MCH (RBC) [Entitic mass] 27.4 pg Normal 27.0-33.0 The [facility] Comment on above: Performed By: #### 5 3 #### [facility] [address] [place] [address], [facility] MCHC (RBC) [Mass/Vol] 32.8 g/dL Normal 32.0-35.0 [facility] Comment on above: Performed By: #### 5 3 #### [facility] [address] [place] [address], [facility] MCV (RBC) [Entitic vol] 83.5 fL Normal 82.0-98.0 [facility] Comment on above: Performed By: #### 102 #### [facility] [address] [facility] [place] [place] [address], [facility] Monocytes (Bld) [#/Vol] 0.5 10*3/uL Normal 0.1-1.0 [facility] Comment on above: Performed By: #### 102 #### [facility] [address] [place] [address], [facility] MONOS 5.0 % Normal 5.0-12.0 [facility] Comment on above: Performed By: #### 102 #### [facility] [address] [place] [address], [facility] Neutrophils/100 WBC (Bld) 65.9 % Normal 40.0-72.0 [facility] Comment on above: Performed By: #### 102 #### [facility] [address] [place] [address], [facility] Nucleated RBC/100 WBC (Bld) [Ratio] 0 % Normal 0-0 The [facility] Comment on above: Performed By: #### 5 102 #### [facility] [address] [place] [address], [facility] PLAT CNT 290 10*3/uL Normal 150-400 [facility] Comment on above: Performed By: #### 102 #### [facility] [address] [place] [address], [facility] RBC (Bld) [#/Vol] 4.86 10*6/uL Normal 3.80-5.00 [facility] Comment on above: Performed By: #### 102 #### [facility] [address] [place] [address], [facility] WBC (Bld) [#/Vol] 9.68 10*3/uL Normal 4.00-10.[address] [facility] Comment on above: Performed By: #### 5 0103 #### [facility] [address] [place] [address], [facility] KNEE RIGHT 1 OR 2 VWSon 06-05 KNEE RIGHT 1 OR 2 S [facility] Department of Radiology [address] [place] [phone] Patient Name: MICHELLE BE : 1960 Sex: F Age: Race: White Pt. 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, 7thD I10 History: Shira Comments: , Views (X-RAY, KNEE): Radiologic Protocol , Weight Bearing?: N , With or Without Brace/Cast/Collar: With , Views (X-RAY, KNEE): Radiologic Protocol , Weight Bearing?: N , With or Without Brace/Cast/Collar: With , , , Ordering Provider - AHSAN BINGHAM PA-C , Exam: KNEE RIGHT 1 OR 2 VWS KNEE RIGHT 1 OR 2 VWS 06/30/2018 10:52 AM EDT SIGNS AND SYMPTOMS: 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 COMPARISON: None FINDINGS: Soft tissues: Swelling along the infrapatellar area The patellar tendon origin Bones: Screw fixation of patella, with fracture of the upper segment just above the uppermost screw Joints: Moderate knee arthritis with narrowing of the medial weightbearing compartment accompanied by effusion IMPRESSION: Quita-screw fracture along the upper pole patella similar to prior with currently limited healing response but also no change in alignment Electronically signed by:Debra Del Cid. Transcribed by: [email or web address], User Resident: Electronically Signed by: DEBRA DEL CID @ 06/30/2018 11:52 AM Normal [facility] Comment on above: Order Comment: , Mabel ws (X-RAY, KNEE): Radiologic Protocol , Weight Bearing?: N , With or Without Brace/Cast/Collar: With , Views (X-RAY, KNEE): Radiologic Protocol , Weight Bearing?: N , With or Without Brace/Cast/Collar: With , , , Ordering Provider - AHSAN BINGHAM PA-C , PROTHROMBIN TIMEon 9 INR Coag (PPP) [Relative time] 0.98 {INR} Normal 0.91-1.16 [facility] Comment on above: Result Comment: ACCCP RECOMMENDED INR FO R WARFARIN THERAPY ------- CONDITION INR PROPHYLAXIS OF VENOUS THROMBOSIS 2-3 (HIGH-RISK SURGERY) TREATMENT OF VENOUS THROMBOSIS 2-3 TREATMENT OF PULMONARY EMBOLISM 2-3 PREVENTION OF SYSTEMIC EMBOLISM: 2-3 ACUTE MYOCARDIAL INFARCTION TISSUE HEART VALVES VALVULAR HEART DISEASE ATRIAL FIBRILLATION RECURRENT SYSTEMIC EMBOLISM MECHANICAL HEART VALVE 2.5-3.5 FROM: ORAL ANTICOAGULANTS. MECHANISM OF ACTION, CLINICAL EFFECTIVENESS, AND OPTIMAL THERAPEUTIC RANGE. CHEST 1995;108:231S-246S. Performed By: #### 5 [id number], [id number] #### [address] PT Coag (PPP) [Time] 13.0 s Normal 12.3-14.8 [facility] Comment on above: Result Comment: ALL RESULTS MUST BE INTERPRETED WITH RESPECT TO BLOOD DRAWING ARTIFACT OR DILUTION ERROR OF ANTICOAGULANT AT THE TIME OF SAMPLING. Performed By: #### 5 [id number], [id number] #### [address] KNEE RIGHT 3 [facility] 9 KNEE RIGHT 3 [facility] Department of Radiology [address] [place] [id number] Patient Name: MICHELLE BE : 1960 Sex: F Age: Race: White Pt. Location: Patient Status: O Ordered Date: 06/15/2018 1:35:00 PM Completed Date: 06/15/2018 01:34 PM Requesting Provider: AMPARO ZHANG Attending Provider: AMPARO ZHANG Report Copy To: ADELAIDA CARRION Signs & Symptoms: M17.11 Unilateral primary osteoarthritis, right knee I10 History: Shira Comments: , Weight Bearing?: Y , Weight Bearing?: Y , , , Ordering Provider - AMPARO ZHANG PA-C , Exam: KNEE RIGHT 3 [facility] KNEE RIGHT 3 [facility] 06/15/2018 1:34 PM EDT SIGNS AND SYMPTOMS: M17.11 Unilateral primary osteoarthritis, right knee I10 TECHNOLOGIST COMMENTS: Patient states complaint of right knee pain QUESTION FOR THE RADIOLOGIST: , Weight Bearing?: Y , Weight Bearing?: Y , , , Ordering Provider - AMPARO ZHANG PA-C , PROTOCOL: AP,Lateral and Tangential views were obtained. COMPARISON: None FINDINGS: Soft tissues: Small suprapatellar effusion Bones: 3 screws screws present for patellar fracture fixation. The patient has refractured through the superior pole of the patella. Approximately 3 mm of displacement. Joints: Degenerative changes in the knee consistent with osteoarthritis most pronounced in the medial joint space compartment IMPRESSION: 1. 3 screws screws present for patellar fracture fixation. The patient has refractured through the superior pole of the patella. Approximately 3 mm of displacement. 2. Degenerative changes in the knee consistent with osteoarthritis especially medial joint space compartment 3. Small effusion Electronically signed by:Anup Ellison. Transcribed by: [email or web address], User Resident: Electronically Signed by: ANUP ELLISON @ 06/15/2018 03:50 PM [place] [facility] Comment on above: Order Comment: , Isiaah ght Bearing?: Y , Weight Bearing?: Y , , , Ordering Provider - AMPARO ZHANG PA-C , Vital Signs Date Time Vital Sign Value Performing Clinician Facility 03-23-2023 12:10-0500 Diastolic blood pressure 98 mm[Hg] Adelaida Carrion Work Phone: [facility] 03-23-2023 12:10-0500 Heart rate 76 /min Adelaida Sousaholz Work Phone: [facility] 03-23-2023 12:10-0500 Respiratory rate 18 /min Adelaida Carrion Work Phone: [facility] 03-23-2023 12:10-0500 SaO2% (BldA) [Mass fraction] 99 % Adelaida Carrion Work Phone: [facility] 03-23-2023 12:10-0500 Systolic blood pressure 162 mm[Hg] Adelaida Sousahollily Work Phone: [facility] 03-23-2023 10:53-0500 Body height 162.56 cm Adelaida Carrion Work Phone: [facility] 03-23-2023 10:53-0500 Body weight 125.64 kg Adelaida Carrion Work Phone: [facility] 12-19-2022 14:55-0400 Body height 162.56 cm Rosemary Marita Other [facility] Other 12-19-2022 14:55-0400 Body mass index (BMI) [Ratio] 47.85 kg/m2 Rosemary Kirkland Other [facility] Other 12-19-2022 14:55-0400 Body temperature 97.8 [degF] Rosemary Kirkland Other [facility] Other 12-19-2022 14:55-0400 Body weight 126.46 kg Rosemary Kirkland Other [facility] Other 12-19-2022 14:55-0400 Respiratory rate 20 /min Rosemary Kirkland Other [facility] Other 12-19-2022 14:55-0400 SaO2% (BldA) [Mass fraction] 95 % Rosemary Kirkland Other [facility] [employer] Other 11-20-2022 13:12-0400 Body temperature 97.7 [degF] Adelaida Aichholz Work Phone: [facility] 11-20-2022 13:12-0400 SaO2% (BldA) [Mass fraction] 96 % Adelaida Aichholz Work Phone: [facility] 11-20-2022 07:44-0400 Diastolic blood pressure 90 mm[Hg] Adelaida Aichholz Work Phone: [facility] 11-20-2022 07:44-0400 Heart rate 103 /min Adelaida Aichholz Work Phone: [facility] 11-20-2022 07:44-0400 Systolic blood pressure 152 mm[Hg] Adelaida Aichholz Work Phone: [facility] 11-19-2022 20:00-0400 Respiratory rate 18 /min Adelaida Aichholz Work Phone: [facility] 11-18-2022 15:18-0400 Body height 162.56 cm Adelaida Aichholz Work Phone: [facility] 11-17-2022 09:00-0400 Body weight 122.92 kg Adelaida Aichholz Work Phone: [facility] Encounters Encounter Date Encounter Type Care Provider Facility Start: 03-23-2023 End: 03-23-2023 ambulatory Jace Graham Facility:[facility] Start: 03-23-2023 End: 03-23-2023 Admission to same day surgery center Adelaida Carrion Work Phone: [facility] Work Phone: Start: 03-23-2023 End: 03-23-2023 ambulatory Adelaida Carrion Work Phone: [facility] Work Phone: Start: 03-11-2023 End: 03-11-2023 ambulatory KALLI INTERIANO Not Available Start: 02-20-2023 End: 02-20-2023 ambulatory ASHLEIGH JEREZ Not Available Start: 02-12-2023 End: 02-12-2023 ambulatory Jace Graham Other [facility] Other Start: 02-12-2023 Telephone encounter Jace Haney Elder Counselor Start: 12-19-2022 End: 12-19-2022 ambulatory Rosemary Kirkland Other [facility] Other Start: 12-19-2022 Office outpatient ne w 10 minutes Rosemary Kirkland [facility] José Miguel Start: 11-17-2022 End: 11-20-2022 Evaluation and management of inpatient Adelaida Carrion Facility:[facility] Start: 11-17-2022 End: 11-20-2022 Evaluation and management of inpatient Adelaida Carrion Work Phone: [facility] Work Phone: Start: 10-06-2022 ambulatory Eduardo Acevedo acility:[facility] Start: 09-04-2022 ambulatory ARIAN JOHNSON . Facili ty:[facility] Start: 08-26-2022 ambulatory HERBERTH CRAMER . Facility:[facility] Start: 08-08-2022 End: 08-09-2022 ambulatory [employer]ER ADELAIDA CARRION Facility:[facility] Start: 07-25-2022 End: 07-26-2022 ambulatory [employer] PR[employer]ER ADELAIDA CARRION Facility:[facility] Start: 07-15-2022 End: 07-15-2022 ambulatory NARENDRANATH LAKSHMIPATHY . Facility:[facility] Start: 07-11-2022 ambulatory NARENDRANATH LAKSHMIPATHY . Facility:[facility] Start: 06-26-2022 End: 06-27-[address] FINA ZIMMER . Facility:[facility] Start: 06-11-2022 ambulatory LIVIER CARRION Facil ity:[facility] Start: 05-21-2022 End: 06-11-2022 ambulatory [employer] FR[employer] PR[employer]ER ADELAIDA CARRION Facility:[facility] Start: 05-08-2022 End: 05-09-2022 ambulatory LIVIER CARRION Facility:[facility] Start: 04-28-2022 End: 04-28-2022 ambulatory LIVIER CARRION Facility:[facility] Start: 04-03-2022 End: 04-04-[address] FINA ZIMMER . Facility:[facility] Start: 03-19-2022 End: 03-20-2022 ambulatory LIVIER CARRION Facility:[facility] Start: 02-20-2022 End: 02-20-2022 ambulatory GILMER NEVES Facility:[facility] Start: 01-10-2022 End: 02-12-2022 ambulatory BRIDGETTE MACEDO Facility:[facility] Start: 01-02-2022 End: 01-03-[address] FINA ZIMMER . Facility:[facility] Start: 01-01-2022 End: 01-02-2022 ambulatory BRIDGETTE MACEDO Facility:[facility] Start: 12-16-2021 End: 12-16-2021 ambulatory LIVIER CARRION Facility:[facility] Start: 11-21-2021 End: 11-22-[address] DOCTOR BERGERON Facility:[facility] Start: 10-03-2021 End: 10-04-[address] FINA ZIMMER . Facility:[facility] Start: 09-19-[address] FINA ZIMMER . Faci lity:[facility]1 Start: 09-12-2021 End: 09-12-2021 ambulatory LIVIER CARRION Facility:[facility] Start: 08-20-2021 End: 08-20-[address] FINA ZIMMER . Facility:[facility] Start: 07-02-2018 End: 07-03-2018 Patient encounter procedure SUKI ESCALANTE Facility:[facility] Procedures Date Procedure Procedure Detail Performing Clinician Start: 03-23-2023 Screening colonoscopy L oneal Carrion Work Phone: Start: 07-02-2018 ANESTH KNEE AREA SURGERY CHAPARRITA HENDRICKS Start: 07-02-2018 REMOVAL OF SUPPORT IMPLANT SUKI ESCALANTE Start: 07-02-2018 TREAT KNEECAP FRACTURE SUKI ESCALANTE Plan of Treatment Date Care Activity Detail Author Start: 03-23-2023 [facility] Start: 11-20-2022 [facility] Start: 11-18-2022 Referral to clinical credit risk modeler [facility] Start: 11-17-2022 Hospital admission [facility] Start: 11-17-2022 [facility] Patient Education [facility] Work Phone: Patient referral [facility] Work Phone: [facility] Immunizations Immunization Date Immunization Notes Care Provider Parker stevens 05-28-2018 influenza, injectabl e, quadrivalent, preservative free Adelaida Carrion Work Phone: [facility] Payers Date Payer Category Payer Medicare [id number] 2022 Private Health Insurance [id number] 2022 Self-pay [id number] 2008 Unknown [id number] 1960 Unknown [id number] 2.16.8 40.1.900780.3.579.2.647 1960 Unknown [id number] 2.16.84 0.1.328463.3.579.2.593 1960 Unknown [id number] 2.16.84 0.1.685303.3.579.2.593 1960 Unknown [id number] 2.16.84 0.1.082054.3.579.2.593 1960 Unknown [id number] 2.16.84 0.1.856750.3.579.2.593 1960 Unknown [id number] 2.16.84 0.1.005036.3.579.2.593 1960 Unknown [id number] 2.16.84 0.1.206087.3.579.2.593 1960 Unknown [id number] 2.16.84 0.1.794766.3.579.2.593 1960 Unknown [id number] 2.16.84 0.1.631320.3.579.2.593 1960 Unknown [id number] 2.16.84 0.1.761185.3.579.2.593 1960 Unknown [id number] 2.16.84 0.1.876550.3.579.2.593 1960 Unknown [id number] 2.16.84 0.1.360994.3.579.2.593 1960 Unknown [id number] 2.16.84 0.1.496108.3.579.2.593 1961 Unknown [id number] 2.16.84 0.1.307012.3.579.2.593 1961 Unknown [id number] 2.16.84 0.1.165305.3.579.2.593 1961 Unknown [id number] 2.16.84 0.1.465307.3.579.2.593 1960 Unknown [id number] 2.16.84 0.1.094624.3.579.2.593 1960 Unknown [id number] 2.16.84 0.1.731376.3.579.2.593 1961 Unknown [id number] 2.16.84 0.1.134895.3.579.2.593 1961 Unknown [id number] 2.16.84 0.1.939840.3.579.2.593 1961 Unknown [id number] 2.16.84 0.1.965683.3.579.2.593 1961 Unknown [id number] 2.16.84 0.1.699446.3.579.2.593 1961 Unknown [id number] 2.16.84 0.1.603734.3.579.2.593 1961 Unknown [id number] 2.16.84 0.1.806326.3.579.2.593 1961 Unknown [id number] 2.16.84 0.1.477603.3.579.2.593 1961 Unknown [id number] 2.16.840 .1.050105.3.579.2.1259 1960 Unknown [id number] 2.16.840 .1.018742.3.579.2.1259 1958 Medicare [id number] 1959 Unknown [id number] Unknown [id number] 2.16.8 40.1.452954.3.579.2.531 Unknown [id number] 2.16.8 40.1.034040.3.579.2.531 Unknown [id number] 2.16.8 40.1.961565.3.579.2.531 Social History Date Type Detail Facility Start: 11-18-2022 End: 03-23-2023 Tobacco smoking status NHIS Ex-smoker (finding) [facility] Start: 1960 Sex Assigned At Female F [facility] Sex Assigned At Sex Assigned At Bir th [employer] Other Goals Date Patient Goal Desired Activity /State Functional Status Date Assessment Result Facility 11-20-2022 Functional status Patient at Baseline [facility] Work Phone: Mental Status Date Assessment Result Facility 11-20-2022 Cognitive function Cognitive Sta tus Patient is Progressing Toward Baseline [facility] Work Phone: Clinical Notes 10-03-2021 to 03-23-2023 Note Date & Type Note Facility 03-23-2023 Procedure note [facility] 12-19-2022 Evaluation note Encounter Date Diagnosis Assessment Notes Dec, Skin candidiasis (ICD-10 - B37.2) Drink plenty fluids, get plenty of rest. Continue home medications as prescribed. Take the Diflucan as prescribed until gone. Follow-up with your family physician if no improvement in 2 to 3 days [facility] Other 08-17-2023 Discharge summary Author Eduardo bautista [facility] November 20, 2022 6:38am Note Date/Time November 20, 2022 6: 38am [facility] [address] [place] [address] Discharge Summary Signed Patient: Michelle Be MR#: [id number] : 1960 Acct:[id number] Age/Sex: 61 / F Adm Date: 3 Loc: Room: [address] [place] [address]: Gaudencio Monk MD Copies to: MD Adelaida Álvarez, INTERNATIONAL ACCOUNT EXECUTIVE-C~ Providers Date of Discharge: 11/20/22 Discharging Provider: Gaudencio Monk Primary Care Provider: Adelaida Carrion Consults: 11/18/22 06:46 Consult to Adult Hospitalist Routine 11/18/22 16:13 Consult to Occupational Therapy Routine Consult to Physical Therapy Routine Discharge Diagnosis (1) Bipolar 2 disorder: Final Diagnosis Final Discharge Diagnosis: Bipolar 2 disorder Summary Hospital Course Hospital course: This is a 61-year-old female with reported history of bipolar, depression, anxiety, and PTSD who presents for inpatient admission due to worsening of suicidal ideation. Reportedly (per admission note), the patient stated that she came to the hospital because she has been feeling overwhelmed, like I'm standing in a large black hole. ? She stated that she has felt like this for thepast 3 days so she called the crisis line and was told to go to the hospital.? Pt stated that every day living is a struggle. At the time of the interview Michelle presented as calm and cooperative.? She reports a longstanding history of depression, anxiety, PTSD, and bipolar disorder manifested as diagnosis pager 15 and multiple hospitalizations.? She reports that she has been feeling fragile for the past few days and overwhelmed by court appearances, doctors appointments, and not being able to assist her grandson.? She stated that she feels like she is standing at the edge of a large dark hole that could swallow her up , and states that she wishesto hurt herself at the times that she experiences this feeling.? She denies homicidal ideation but admits to suicidal ideation today that began a few days ago and has been constant since.? She attests to depression and anxiety that sherates as a 10 out of 10 today. Patient was personally seen by me on the day of the encounter.? I reviewed the history and performed the domínguez elements of the assessment.? I formulated the planof care and confirmed this with the medical student as noted below Past psych history: She reports first being diagnosed with a psychiatric condition at the age of 16 but was unsure of her diagnosis at that time.? She reports moving to [place] from [place] in 2011 and was then diagnosed with bipolar disorder at [facility] in [place], where she still follows with a therapist.? Shereports that she has been with 7 therapists in the last 9 years and is currentlycompleting EMDR with her current therapist. Past hospitalizations: Her most recent hospitalization was 5 years ago [facility] for the same feeling she is experiencing today.? She reports that her feelings of suicidality were worse 5 years ago than they are today. Past suicide attempts: Patient reports suicide attempt taking place 32 years agoin which she took a large bottle of Tylenol and attempted to overdose due to herex- having an affair at the time throughout her and her mother's .? 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 She reports she would prefer to use medication to to not wanting her family to find her with a traumatic injury. Family psych history: Reports history of bipolar disorder in her mother and her son. Previous medications: Cariprazine, clonazepam, duloxetine, gabapentin, ropinirole, tizanidine, trazodone, zolpidem.? 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 Alcohol and drug use: Reports previously using cigarettes but quit 5 years ago.?Reports that she has a medical marijuana card and smokes marijuana a couple of times a day.? Reports that the marijuana helps with her pain due to fibromyalgiaand sleeping. Living: Reports living at home with her , son and his girlfriend, and jimenez.? Reports a situation in which they are attempting to seek custody of the grandson from the mother of the child.? She reports not feeling safe at homewith herself but feels safe when her family is home. Employment: Patient has not worked since 2010 due to her fibromyalgia.? [facility]. Relationships: Reports having people who love her and know her . The course of treatment: The patient was familiar with the mental health therapy services available whileon the unit and was encouraged to participate.She said she has chornic pain and was evaluated by the hospitalist. She also benefited from PT. Psychotropic medications targeting mood and anxiety were started and she was provided supportive and reality oriented therapy. She said home meds are effective and added Zyprexa PRN. She felt that her symptoms have improved on the current medication regimen, and has been compliant with treatment, and reported no side effects. Her sleep and appetite were okay. She has been attending groups and described them as useful building coping skills. The patient has denied any access to firearms or lethal weapons. She felt better than before coming to the hospital and feels hopeful regarding her future. She understands the importance of outpatient follow-up to ensure the stability of her symptoms. She denied suicidal or homicidal ideation and verbalized the intent to notify the staff if she has such thoughts. No suicidal or self-injurious behaviors occurred during inpatient treatment. The patient described that her depressive feelings have been relieved, and she has a better understanding of how to cope with stress due to her inpatient admission. She expresses understanding and says she is better after learning coping skills and the medications prescribed in the inpatient unit. She described this hospitalization as a wake up call and was in a good place to return home and engage fully in her life. Patient stated that she is able to keep her positive thoughts and denied any hopelessness. The patient stated that she was ready to go. She did not meet criteria for involuntary psychiatric hospitalization. Patient achieved maximum benefit from attending inpatient treatment and was suitable for outpatient follow up. I explained to the patientthat her discharge from the hospital does not mean that her medical care ends here. She needs consistent outpatient follow-up, cognitive behavioral therapy, and should communicate from this point on with her outpatient team. Ms. Rolle's illness, medication side effects, benefits and risks were reviewed with her prior to discharge. The patient voiced understanding of their diagnosis, the medications recommended along with the importance of medication compliance. The patient was counseled not to stop medications without the supervision of a psychiatrist. The patient was counseled that if there was an increase in mental health issues, depression, anxiety, medication side effects, self harm or thoughts of harm to others, the patient was not to harm them self or stop treatment, but to call [facility] or come to the nearest emergency room. The patient also received information regarding advanced mental and medical health directives during this hospitalization to discuss with their outpatient provider. The plan was discussed with the patient, the nurses and thecase management department. The patient voiced agreement with the plan. Discharge disposition: Home with dad. Coordinated via case management. Safe discharge Planning: With the cessation of all suicidal ideation, improvements in mood, and absence of any psychotic symptoms at the time of discharge, aftercare plans were solidified. She was able to formulate a believable Safety Plan. Discharge plans were discussed with the patient, her family, and the treatment team. All agreed with the discharge plan. On the day of discharge, she was evaluated and had no complaints. She denied any SI/HI. She agreed to follow up with outpatient treatment as arranged by case management. She had no complications during her stay. Suicide risk assessment: A thorough review of risk and protective factors was conducted. Discussed with the patient the following recommendations that would help reduce suicide which includes limiting the number of medications to a 15-day supply with one refill at the time of discharge to avoid potential overdose,consistent outpatient follow up preferably within seven days of release, involving family members in her care, and her desire to live. We also discussed availability of outpatient DBT groups which can be lifesaving. She reports good therapeutic alliance, good response to medication management and therapy, availability of local mental health services and willingness to follow up, lack of suicidal ideation, intent or plan, lack of impulsivity, agitation, or psychotic behavior. Pt is future- oriented and understands the importance of outpatient follow-up. Psychiatric experts agree that predicting suicide is impossible but considering positive factors like family and silverio, lack of access to firearms, and desire to continue treatment makes her current suicide risk minimal. Given the chronicity of suicidality, we discussed measures to help her with long-term safety. The patient is not suicidal or psychotic now. To help decreaseher suicide risk, as best I can, I am referring her for outpatient treatment andCBT for long-term follow-up to have somewhere to go and someone to manage her assymptoms and stressors develop. This is the best way to keep her alive. So, we discussed a crisis plan for future suicidality: at the first sign of distress, she will call the hotline; if this is not sufficient, she will 911, then call family members or friends; ultimately, she will come to the ER. Safety: The patient is not acutely psychotic and is safe to continue treatment on an outpatient basis. The patient was made aware of the 27/10 emergency services of the crisis center. She was advised to call 911 or go to the nearest ER in case of a crisis ( (including having thoughts of harming herself or others). Risks (metabolic, EPS, the effect on heart), benefits, and alternatives for medications were discussed. She verbalized understanding. Her consent was obtained. She was advised not to drink alcohol while taking medications. I advised patientthat using drugs can increase risk of impulsiveness and making poor decisions. Continue supportive therapy with some CBT techniques. Psycho-education and compliance counseling were provided. She denies current and is aware to notify her psychiatrist if she becomes due to the risk of harm to the fetus. MSE: Orientation: Alert and oriented to person, place, and time. Appearance/Behavior: Fair grooming and hygiene, calm, cooperative, engaged in the interview. Good eye contact. Normal psychomotor activity. Speech: normal rate, rhythm, volume, and tone. Non pressured. Knowledge: Appropriate for age and level of education Mood: okay Affect: reactive, mood-congruent Thought process: linear, logical, and goal-oriented Thought content: No SI/HI. No AVH. No delusions. Does not appear to be responding to internal stimuli. Concentration: Grossly intact based on track during the interview Associations: No loosening of associations Memory: Able to recall recent and remote historical information Insight: Fair, able to appreciate current symptoms and need for outpatient treatment Judgment: fair, agreed to follow treatment recommendations, socially appropriate with interviewer and staff. Time spent discussing smoking cessation with patient: more than 10 minutes Condition Condition at Discharge: Stable Status at Discharge Functional status at discharge: independent ambulation Time Spent with Patient Time spent providing/coordinating discharge services (# min): 88 Exam Physical Exam Vital Signs: Temp Pulse Resp BP Pulse Ox O2 Del Method 97.5 F L 86 18 143/90 H 96 Room Air 11/19/22 20:00 11/19/22 20:00 11/19/22 20:00 11/19/22 20:00 11/19/22 20:00 11/19/22 20:00 Discharge Plan Discharge Plan Activity: No Activity Restriction Diet: Regular Prescriptions: New olanzapine 5 mg Tablet 5 mg PO Q6H PRN (Reason: Agitation) 15 Days Qty: 30 1RF Continued amlodipine 10 mg tablet 10 mg PO DAILY Patient Comments: TAKE 1 TABLET BY MOUTH DAILY gabapentin 600 mg tablet 600 mg PO 09,1400 Patient Comments: TAKE 1 TABLET BY MOUTH FOUR TIMES DAILY (IN THE MORNING, in the afternoon, and 2 (TWO) AT BEDTIME) cetirizine 10 mg tablet 10 mg PO DAILY Patient Comments: TAKE 1 TABLET BY MOUTH DAILY tizanidine 4 mg tablet 2 mg PO ,1399 Patient Comments: TAKE 1/2 (ONE-HALF) OF A TABLET BY MOUTH IN THE MORNING then TAKE 1/2 (ONE-HALF) OF A TABLET BY MOUTH in the afternoon then TAKE 2 TABLETS BY MOUTH AT BEDTIME tizanidine 4 mg tablet 8 mg PO HS Patient Comments: TAKE 1/2 (ONE-HALF) OF A TABLET BY MOUTH IN THE MORNING then TAKE 1/2 (ONE-HALF) OF A TABLET BY MOUTH in the afternoon then TAKE 2 TABLETS BY MOUTH AT BEDTIME clonazepam 1 mg tablet 1 mg PO BID Patient Comments: TAKE 1 TABLET BY MOUTH IN THE MORNING then TAKE 1 TABLET BY MOUTH AT BEDTIME trazodone 150 mg tablet 150 mg PO HS Patient Comments: TAKE 1 TABLET BY MOUTH AT BEDTIME omeprazole 20 mg capsule,delayed release(DR/EC) 20 mg PO DAILY Patient Comments: TAKE 1 CAPSULE BY MOUTH DAILY zolpidem 10 mg tablet 10 mg PO HS Patient Comments: TAKE 1 TABLET BY MOUTH ONCE DAILY AT BEDTIME losartan 100 mg tablet 100 mg PO DAILY Patient Comments: TAKE 1 TABLET BY MOUTH ONCE DAILY fluticasone propionate 50 mcg/actuation spray,suspension 2 spray INTRANASAL DAILY Patient Comments: INSERT 2 (TWO) sprays in EACH nostril ONCE DAILY ropinirole 4 mg tablet 4 mg PO DAILY Patient Comments: TAKE 1 TABLET BY MOUTH NIGHTLY duloxetine 60 mg capsule,delayed release(DR/EC) 60 mg PO BID Patient Comments: TAKE 1 CAPSULE BY MOUTH TWICE DAILY Vraylar 4.5 mg capsule 4.5 mg PO DAILY Patient Comments: take 1 capsule by mouth once daily gabapentin 600 mg tablet 1,200 mg PO HS Patient Comments: TAKE 1 TABLET BY MOUTH FOUR TIMES DAILY (IN THE MORNING, in the afternoon, and 2 (TWO) AT BEDTIME) ferrous sulfate [Iron (ferrous sulfate)] 325 mg (65 mg iron) Tablet 325 mg PO DAILY Bariatric Multivitamins 45 mg iron- 800 mcg-120 mcg Capsule 1 cap PO DAILY calcium citrate-vitamin D3 200 mg-6.25 mcg (250 unit) Tablet 1 tab PO QID Follow Up: [facility] [Outside] [facility] [Outside] ( manager inpatient: (Insert date/time here) Therapy:? (insert date/time here) Intake: (Insert date/time here) Please bring a copy of your photo ID, insurance card, and proof of household income.? Psychiatry: (Insert date/time here) Group: (Insert date/time here ) ) Adelaida Carrion [Primary Care Provider] - (Please contact for any medical needs) Documented By: Eduardo Monk MD 3 [id number] Signed By: <Electronically signed by Eduardo Monk MD> 11/20/22 0638 [facility] Work Phone: [phone]) 994-454008-16-2023 Progress note Author Eduardo bautista [facility] November 19, 2022 6:25am Note Date/Time November 19, 2022 6: 25am [facility] [address] [place] [address] Psychiatry Progress Note Signed Patient: Michelle Be MR#: [id number] : 1960 Acct:[id number] Age/Sex: 61 / F Adm Date: 3 Loc: 1S Room: [address] [place] [address] Type : ADM IN Attending Dr: Gaudencio Monk MD Copies to: ~ Date of Service: 11/19/2022 Subjective Subjective Narrative: Mrs. Be reports that she spoke to the hospitalist yesterday and is goingto start physical therapy. She said mood is better and denied SI/HI on exam. Shewants to stay on current med regimen stating it took me time to be stable on this meds with my outpatient provider. She described groups as a good experience. She tells me that she follows up with outpatient PT. Mental status: Grossly normal Mood: Ok Affect: Mood congruent Speech and movement: Speech slowed, movements slightly slowed Attitude: Cooperative Thought process: Normal Thought content: Denies suicidal ideation and plan, denies hallucinations or paranoid delusions Insight: Fair Judgment: Fair Exam Physical Exam Vital Signs: Temp Pulse Resp BP Pulse Ox O2 Del Method 98.2 F 79 18 147/91 H 98 Room Air 11/18/22 20:00 11/18/22 20:00 11/18/22 20:00 11/18/22 20:00 11/18/22 20:00 11/18/22 20:00 Assessment/Plan Assessment/Plan (1) Bipolar 2 disorder: Code(s): F31.81 - Bipolar II disorder Status: Acute Plan Patient reported talking to hospitalist yesterday and feeling better today. Continue with cariprazine 4.5 mg p.o. daily, clonazepam 1 mg p.o. twice daily, duloxetine 60 mg p.o. twice daily, trazodone 150 mg p.o. at bedtime, and zolpidem 10 mg p.o. at bedtime Continue to monitor patient's mental status Continue to monitor patient for suicidal ideation Encourage participation in group therapy Encourage patient to speak with outpatient therapist and reschedule appointment postdischarge due to good therapeutic alliance between patient and practitioner Assess symptom profile over coming days for potential medication adjustment; patient states that she is hesitant to change her medications as she feels they are a good fit for her Will consider discharge if patient denies suicidal ideation for 3 to 4 days consecutively and will reevaluate for risk factors at that time Documented By: Eduardo Monk MD 3 [id number] Signed By: <Electronically signed by Eduardo Monk MD> 11/19/22 0625 [facility] Work Phone: [phone]) 258-422508-15-2023 Progress note Author Eduardo bautista [facility] November 18, 2022 11:01am Note Date/Time November 18, 2022 10 :11am [facility] [address] [place] [address] Psychiatry Progress Note Signed Patient: Michelle Be MR#: [id number] : 1960 Acct:[id number] Age/Sex: 61 / F Adm Date: 3 Loc: Room: [address] [place] [address] Type : ADM IN Attending Dr: Gaudencio Monk MD Copies to: ~ Date of Service: 11/18/2022 Subjective Subjective Narrative: I spoke with a distraught Ms. Michelle Be today whom states her pain has worsened during her stay. 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 Patient pointed to her left wrist and cited a prior tendon release as well as holding her right lumbar region attesting to a radiofrequency ablation performed last week. Patient was personally seen by me on the day of the encounter.? I reviewed the history and performed the domínguez elements of the assessment.? I formulated the planof care and confirmed this with the resident as noted below Currently Mrs. Be denies auditory hallucinations and states she slept well after her nightly Zyprexa. She also states she is tolerating cariprazine well with no complaints. Patient denies suicidal ideation however states familial stressors are the cause of her depressive episode. Patient describes a recent episode as a Jenga tower falling as an analogy where each brick represents an issue. She further clarifies that she is often feels like she is, looking into a dark hole while standing on the precipice. She would like to see hospitalist to discuss her pain medications. She requested scheduled pain narcotics for fibromyalgia. Discussed risk of pain nartocis on top of her benzodiazepines. Patient concluded our encounter by requesting a schedule 2 referring to [facility] for pain management specifically every 4-6 hours for shoulder pain bilaterally. Mental status: Grossly normal Mood: Depressed, anxious Affect: Constricted, low Speech and movement: Speech slowed, movements slightly slowed Attitude: Cooperative Thought process: Normal Thought content: Admits suicidal ideation and plan, denies hallucinations or paranoid delusions Insight: Fair Judgment: Fair Exam Physical Exam Vital Signs: Temp Pulse Resp BP Pulse Ox O2 Del Method 97.2 F L 96 H 16 123/77 100 Room Air 11/18/22 06:56 11/18/22 06:56 11/18/22 06:56 11/18/22 06:56 11/18/22 06:56 11/18/22 08:49 Assessment/Plan Assessment/Plan (1) Bipolar 2 disorder: Code(s): F31.81 - Bipolar II disorder Status: Acute Plan Patient refused any changes to her medication and requested continuation of homemed regimen on admission Requested medical doctor evaluation for pain management Continue with cariprazine 4.5 mg p.o. daily, clonazepam 1 mg p.o. twice daily, duloxetine 60 mg p.o. twice daily, trazodone 150 mg p.o. at bedtime, and zolpidem 10 mg p.o. at bedtime Continue to monitor patient's mental status Continue to monitor patient for suicidal ideation Encourage participation in group therapy Encourage patient to speak with outpatient therapist and reschedule appointment postdischarge due to good therapeutic alliance between patient and practitioner Assess symptom profile over coming days for potential medication adjustment; patient states that she is hesitant to change her medications as she feels they are a good fit for her Will consider discharge if patient denies suicidal ideation for 3 to 4 days consecutively and will reevaluate for risk factors at that time Documented By: Eduardo Monk MD 3 [id number] Signed By: <Electronically signed by Eduardo Monk MD> 11/18/22 1101 <Electronically signed by MD DA Rangel> 11/18/22 1011 [facility] Work Phone: [phone]) 184-370908-14-2023 History and physical note Author Eduardo bautista [facility] November 17, 2022 12:48pm Note Date/Time November 17, 2022 12 :48pm [facility] [address] [place] [address] Psychiatry H&P Signed Patient: Michelle Be MR#: [id number] : 1960 Acct:[id number] Age/Sex: 61 / F Adm Date: 3 Loc: Room: [address] [place] [address] Type: ADM IN Attending Dr: Gaudencio Monk MD Copies to: MD Adelaida Álvarez NP-C~ Date of Service: 11/17/2022 HPI History of Present Illness History of present illness: This is a 61-year-old female with reported history of bipolar, depression, anxiety, and PTSD who presents for inpatient admission due to worsening of suicidal ideation. Reportedly (per admission note), the patient stated that she came to the hospital because she has been feeling overwhelmed, like I'm standing in a large black hole. ? She stated that she has felt like this for thepast 3 days so she called the crisis line and was told to go to the hospital.? Pt stated that every day living is a struggle. At the time of the interview Michelle presented as calm and cooperative. She reports a longstanding history of depression, anxiety, PTSD, and bipolar disorder manifested as diagnosis pager 15 and multiple hospitalizations. She reports that she has been feeling fragile for the past few days and overwhelmed by court appearances, doctors appointments, and not being able to assist her grandson. She stated that she feels like she is standing at the edge of a large dark hole that could swallow her up , and states that she wishesto hurt herself at the times that she experiences this feeling. She denies homicidal ideation but admits to suicidal ideation today that began a few days ago and has been constant since. She attests to depression and anxiety that sherates as a 10 out of 10 today. Patient was personally seen by me on the day of the encounter. I reviewed the history and performed the domínguez elements of the assessment. I formulated the planof care and confirmed this with the medical student as noted below Past psych history: She reports first being diagnosed with a psychiatric condition at the age of 16 but was unsure of her diagnosis at that time. She reports moving to [place] from [place] in 2011 and was then diagnosed with bipolar disorder at [facility] in [place], where she still follows with a therapist. Sherdeisyorts that she has been with 7 therapists in the last 9 years and is currentlycompleting EMDR with her current therapist. Past hospitalizations: Her most recent hospitalization was 5 years ago [facility] for the same feeling she is experiencing today. She reports that her feelings of suicidality were worse 5 years ago than they are today. Past suicide attempts: Patient reports suicide attempt taking place 32 years agoin which she took a large bottle of Tylenol and attempted to overdose due to herex- having an affair at the time throughout her and her mother's . 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 She reports she would prefer to use medication to to not wanting her family to find her with a traumatic injury. Family psych history: Reports history of bipolar disorder in her mother and her son. Previous medications: Cariprazine, clonazepam, duloxetine, gabapentin, ropinirole, tizanidine, trazodone, zolpidem. 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 Alcohol and drug use: Reports previously using cigarettes but quit 5 years ago. Reports that she has a medical marijuana card and smokes marijuana a couple of times a day. Reports that the marijuana helps with her pain due to fibromyalgiaand sleeping. Living: Reports living at home with her , son and his girlfriend, and hergrandson. Reports a situation in which they are attempting to seek custody of the grandson from the mother of the child. She reports not feeling safe at homewith herself but feels safe when her family is home. 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 [employer] [employer] nurse. Relationships: Reports having people who love her and know her . Mental status: Grossly normal Mood: Depressed, anxious Affect: Calm Speech and movement: Speech slow, movements slightly slowed Attitude: Cooperative Thought process: Normal Thought content: Admits suicidal ideation and plan, denies hallucinations or paranoid delusions Insight: Fair Judgment: Fair Review of systems - Admits to history of stroke 4-5 years ago with residual deficits in her right hand and facial muscles, recent balance issues, frequent diarrhea due to a previous bariatric surgery, and urinary incontinence with voiding taking place after initial urination Constitutional: Denies fatigue, malaise. Neuro: Denies numbness/tingling in extremities HEENT: Denies vision/hearing changes. Pulmonary: Denies SOB, dyspnea, cough, wheezing. Cardiac: Denies chest pain/pressure, edema, palpitations. GI: Denies abdominal pain, heartburn, N/V, constipation. Physical exam General: Not in any acute distress Skin: Intact HEENT: Head atraumatic, face symmetrical. Pulm: Breathing normally without excessive effort. Wheezing noted in bilateral lung apices Cardio: Regular rate and rhythm Neuro: Patient alert, oriented x3. CN II: visual yepez intact CN III, IV, : EOM intact, no nystagmus. CN V: sensation intact to light touch. CN VII: raises eyebrows, smile/frown, puff out cheeks symmetrically. CN VIII: hearing intact bilaterally. CN IX, X: Voice normal, soft palate elevation normal, symmetrical. CN XI: Shoulder shrug strong, equal bilaterally. CN XII: Tongue protrusion midline [facility] Medical History (Updated 11/17/22 @ 10:42 by Ashleigh Melendez) Anxiety Bipolar 2 disorder Degenerative disc disease Depression Fibromyalgia Hypertension PTSD (post-traumatic stress disorder) Restless legs syndrome Surgical History (Updated 11/17/22 @ 03:19 by Tabatha Damon LPN) Hx of release of tendon Family History (Updated 11/17/22 @ 03:20 by Tabatha Damon LPN) Mother Diabetes Father Hypertension Father Sick sinus syndrome Social History Smoking Status: Former smoker Substance Use Type: None Social History Comments: lives with , grandson, son and son's girlfriend Meds Medications and Allergies Allergies levetiracetam [From [facility]] Allergy (Verified 11/17/22 02:16) Unknown Reaction milnacipran Allergy (Verified 11/17/22 01:41) Unknown Reaction Penicillins Allergy (Verified 05/27/18 17:04) Unknown Reaction prochlorperazine [From Compazine] Allergy (Verified 11/17/22 02:16) Agitated tetracycline Allergy (Verified 05/27/18 17:04) Unknown Reaction adhesive tape Adverse Reaction (Verified 05/27/18 17:04) Rash Home Medications amlodipine 10 mg tablet 10 mg PO DAILY 11/17/22 [History Confirmed 11/17/22] cariprazine 4.5 mg capsule (Vraylar) 4.5 mg PO DAILY 11/17/22 [History Confirmed 11/17/22] cetirizine 10 mg tablet 10 mg PO DAILY 11/17/22 [History Confirmed 11/17/22] clonazepam 1 mg tablet 1 mg PO BID 11/17/22 [History Confirmed 11/17/22] duloxetine 60 mg capsule,delayed release 60 mg PO BID 11/17/22 [History Confirmed 11/17/22] fluticasone propionate 50 mcg/actuation nasal spray,suspension 2 spray intranasal DAILY 11/17/22 [History Confirmed 11/17/22] gabapentin 600 mg tablet 1,200 mg PO HS 11/17/22 [History Confirmed 11/17/22] gabapentin 600 mg tablet 600 mg PO 0900,1400 11/17/22 [History Confirmed 11/17/22] losartan 100 mg tablet 100 mg PO DAILY 11/17/22 [History Confirmed 11/17/22] omeprazole 20 mg capsule,delayed release 20 mg PO DAILY 11/17/22 [History Confirmed 11/17/22] ropinirole 4 mg tablet 4 mg PO DAILY 11/17/22 [History Confirmed 11/17/22] tizanidine 4 mg tablet 2 mg PO 09,1400 11/17/22 [History Confirmed 11/17/22] tizanidine 4 mg tablet 8 mg PO HS 11/17/22 [History Confirmed 11/17/22] trazodone 150 mg tablet 150 mg PO HS 11/17/22 [History Confirmed 11/17/22] zolpidem 10 mg tablet 10 mg PO HS 11/17/22 [History Confirmed 11/17/22] Exam Physical Exam Vital Signs: Temp Pulse Resp BP Pulse Ox O2 Del Method 97.5 F L 107 H 17 143/85 H 96 Room Air 11/17/22 07:30 11/17/22 07:30 11/17/22 07:30 11/17/22 07:30 11/17/22 07:30 11/17/22 09:00 Assessment/Plan (1) Bipolar 2 disorder: Code(s): F31.81 - Bipolar II disorder Status: Acute Plan Encourage patient to speak with outpatient therapist and reschedule appointment postdischarge due to good therapeutic alliance between patient and practitioner Assess symptom profile over coming days for potential medication adjustment; patient states that she is hesitant to change her medications as she feels they are a good fit for her Continue with cariprazine 4.5 mg p.o. daily, clonazepam 1 mg p.o. twice daily, duloxetine 60 mg p.o. twice daily, trazodone 150 mg p.o. at bedtime, and zolpidem 10 mg p.o. at bedtime Continue to monitor patient's mental status Continue to monitor patient for suicidal ideation Encourage participation in group therapy Documented By: Eduardo Monk MD 3 [id number] Signed By: <Electronically signed by Eduardo Monk MD> 11/17/22 1248 [facility] Work Phone: 1(262) 430-104403-23-2023 NoteCONSULTATION CONSULTATION DATE: 06/26/2022 To: Nurse Carrion CHIEF COMPLAINT: Includes severe right lower back pain, rates it 5-7/10 pain, sharp in character, increased over the last 6-8 weeks' time. HISTORY: The flare up occurred spontaneously, increased gradually prior to this date, where she complains of 5-7/10 pain, sharp in character, increased with activities such as standing, walking and performing transitioning maneuvers. Patient feels most comfortable in the semi-recumbent position. MEDICATIONS: Current medications including Tylenol #3 one pill b.i.d., tizanidine 4 mg at h.s., Neurontin 600 mg in the morning and 1200 mg at h.s., Ambien 10 mg at h.s. and trazodone 150 at h.s. for depression. She is also on clonazepam and uses medical marijuana. EXAM: Notable for patient having no clinical radiculopathy or myelopathy involving the lower extremities. Patient did have severe pain with lumbar facet loading maneuvers on the right side from L4-S1 with associated myofascial spasm of the lumbar paravertebral muscles. IMPRESSION: Patient appears to have chronic pain, recent flare secondary to lumbosacral spondylosis with facet loading pain clinically. Her last RFA was performed in December of 2020. She reports that her pain in that area was improved by at least 80%. She also suffers from a fair amount of myofascial spasms of the lumbar paravertebral muscles and possible neuritis involving the right lateral cutaneous branch of the iliohypogastric nerve. RECOMMENDATIONS: I recommend increasing Zanaflex 4 mg pills, half a pill b.i.d. , 1-2 at h.s. Will obtain urine toxicology screen. We will wean her off of her Tylenol #3 and to proceed with aquatic therapy and a diagnostic right side L4-5, L5-S1 facet joint injection under fluoroscopic guidance.[facility] [id number] NotePROCEDURE: XR SHOULDER RT 2V or > HISTORY: Pain of right shoulder joint for several months; limited range of motion, weakness COMPARISON: None. FINDINGS: BONES:Mild narrowing of the acromioclavicular joint with undersurface osteophytes. Unremarkable glenohumeral joint. No fracture, dislocation, bone lesion. SOFT TISSUES:No visible soft tissue swelling. EFFUSION:None visible. OTHER: Negative. IMPRESSION: 1. No acute bone abnormality. 2. Degenerative changes of the acromioclavicular joint which would predispose to rotator cuff injury. Electronically authenticated by: KINGSLEY CLEMENTS Date: 2022-05-09 09:21[facility] [id number] NotePROCEDURE: XR WRIST LT MIN 3 V HISTORY: Pain ; acute left wrist pain; no known injury COMPARISON: None. FINDINGS: BONES:No fracture, acute abnormality, or significant arthropathy. SOFT TISSUES:No visible soft tissue swelling. EFFUSION:None visible. OTHER: Negative. IMPRESSION: 1. No acute bone abnormality. 2. No significant degenerative joint disease or specific findings to account for patient's symptoms. Electronically authenticated by: KINGSLEY CLEMENTS Date: 2022-04-28 13:31[facility] [id number] NoteCONSULTATION CONSULTATION DATE: 04/03/2022 HISTORY OF PRESENT ILLNESS: This is a 61-year-old female who returns to the clinic for a three month follow up for chronic lower back pain. She states, overall, her back is feeling pretty decent, rated 3/10 on a pain scale. She is under the care of Dr. Macedo, who is taking care of bilateral feet osteoarthritis and right Achilles issue. She was last seen on 01/02/2022 which, at that time, she was maintaining very well too. Medications include Tylenol #3 b.i.d., tizanidine 4 mg q.h.s., Neurontin per her PCP, Lavinia and Huber. She recently got her medical marijuana card, which she does in a vape form. She said it overall helps her pain. She feels that recently she is under a little bit of stress as they are doing home renovations. Patient's REVIEW OF SYSTEMS / PAST MEDICAL HISTORY / ALLERGIES and IMAGES have been reviewed and noted in the chart. PHYSICAL EXAM: VITAL SIGNS: Blood pressure is 157/91. Heart rate is 100. She is 5'4 , weighs 126 kg. GENERAL APPEARANCE: Pleasant, appropriate, in no acute distress. FOCUSED EXAM - BACK: Range of motion is functional in lateral rotation and flexion/extension. Veronica's point non-tender bilaterally with no radiating pain. No reproduction of spinal axial pain upon compression of the lower lumbar facets. MUSCULOSKELETAL: Slight muscle atrophy noted bilateral hamstrings and quadriceps. Patient does walk unassisted with a steady gait. NEUROLOGICALLY: Radicular sensory is intact to lower extremities and upper extremities. Patient is cognitively intact. Does have slight slurred speech due to her psychotropic medications. DIAGNOSIS: Chronic pain syndrome, lumbar degenerative disc disease, lumbar spondylosis. PLAN: We will refill her Tylenol #3 b.i.d. and tizanidine 4 mg q.h.s. Overall, the patient is doing well and is well aware of home supportive measures such as exercise and maintaining her vitamin regimen. Will see her in three months, unless otherwise indicated.[facility] [id number] NoteCONSULTATION CONSULTATION DATE: 01/02/2022 This is a 61-year-old female who returns to the clinic for a 3-month follow-up for chronic lower back pain. Her most recent procedure was bilateral SI RFAs completed in 08/20/2021 which she is still receiving significant relief. Today she reports her pain is 3 out of 10. Overall, the patient states she is feeling quite well and that the 3 out of 10 is greatly improved for her. She describes the pain as a deep ache in her lower back. She does stretches and recently has seen a chiropractor who did acupuncture to her. She did get significant relief with that but due to cost restraints she is unable to do that regularly. Yesterday she saw Dr. Macedo for right foot pain and was diagnosed with arthritis as well as a shortened Achilles and a heel spur. A prescription was sent by Dr. Macedo to [facility] in [place] for the compounded cream. She needs a refill for Tylenol #3 and tizanidine. Medications include Requip 4 mg q.h.s., Trazadone 100 mg q.h.s., Tylenol #3 b.i. d., tizanidine 4 mg q.h.s. and Neurontin. She denies any new pain pattern or vasomotor changes. REVIEW OF SYSTEMS, PAST MEDICAL HISTORY, ALLERGIES AND IMAGES: Have been reviewed and noted in the chart. PHYSICAL EXAM: VITAL SIGNS: Blood pressure 148/92, heart rate is 91, temperature is 97.7. Height is 5'4 , weighs 124.1 kg. GENERAL APPEARANCE: Pleasant, appropriate and in no acute distress. FOCUSED EXAM: BACK: Paravertebral muscles are taut but non-spasmodic. Range of motion is functional, lateral rotation and flexion/extension. No reproduction of spinoaxial pain to direct compression along the lower lumbar facets of L3, L4 and L5 bilaterally. Veronica's point is nontender bilaterally, Constantin's and compression tests are negative. MUSCULOSKELETAL: Slight muscle atrophy noted to bilateral lower extremities. The patient walks with a stable gait and does not use assistive device. NEUROLOGICAL: Radicular sensory is intact; negative polyneuropathy. Bilateral patellar is +2 and reactive. DIAGNOSIS: Chronic lower back pain, lumbar degenerative disk disease, lumbar spondylosis. PLAN: I did recommend the patient use a mix of Vicks VapoRub and Voltaren gel to her lower back with heat application. The patient is willing to try that. She is compliant with her vitamins and is encouraged to continue to do so. I did recommend the patient try a the Buderer cream onto her lower back and if the patient gets relief from that, she is to contact the office for a separate prescription if she would like. Will see the patient in three months' time unless otherwise indicated.[facility] [id number] NotePROCEDURE: XR ANKLE RT MIN 3 VIEWS, XR FOOT RT MIN 3 VIEWS HISTORY: Pain of right ankle joint , heel pain, lateral ankle swelling COMPARISON: XR foot right 11/21/2021 FINDINGS: BONES:Degenerative enthesopathic spurring of the calcaneus. No fracture, dislocation, bone lesion. No significant joint space narrowing. SOFT TISSUES:No visible soft tissue swelling. EFFUSION:None visible. OTHER: Negative. IMPRESSION: 1. No acute bone abnormality or significant degenerative joint disease. 2. Degenerative calcaneal plantar spur and Achilles tendon degenerative enthesophyte. Electronically authenticated by: KINGSLEY CLEMENTS Date: 2022-01-01 13:11[facility]09-28-2022 NotePROCEDURE: XR ANKLE RT MIN 3 VIEWS, XR FOOT RT MIN 3 VIEWS HISTORY: Pain of right ankle joint , heel pain, lateral ankle swelling COMPARISON: XR foot right 11/21/2021 FINDINGS: BONES:Degenerative enthesopathic spurring of the calcaneus. No fracture, dislocation, bone lesion. No significant joint space narrowing. SOFT TISSUES:No visible soft tissue swelling. EFFUSION:None visible. OTHER: Negative. IMPRESSION: 1. No acute bone abnormality or significant degenerative joint disease. 2. Degenerative calcaneal plantar spur and Achilles tendon degenerative enthesophyte. Electronically authenticated by: KINGSLEY CLEMENTS Date: 2022-01-01 13:11[facility]08-18-2022 NotePROCEDURE: XR FOOT RT MIN 3 VIEWS HISTORY: Pain in right foot , chronic COMPARISON: XR foot right 2020 FINDINGS: BONES:No fracture, dislocation, bone lesion. Small calcaneal degenerative enthesophytes. SOFT TISSUES:No visible soft tissue swelling. EFFUSION:None visible. OTHER: Negative. IMPRESSION: 1. No acute bone abnormality or significant degenerative joint disease. Electronically authenticated by: KINGSLEY CLEMENTS Date: 2021-11-21 16:13[facility]06-30-2022 NoteCONSULTATION CONSULTATION DATE: 10/03/2021 This is a 60-year-old female who returns to the clinic status post bilateral SI RFA completed on 08/20/2021. The patient reports 80% relief for the first two months and now her release is at 50% and is ongoing. She does feel better overall but she has to pace herself with her activity to keep her pain level at a 4 out of 10. Pushing, pulling, standing, walking, stairs, housework and lifting aggravate her pain. She does use heat at night which is very helpful. She does not take NSAIDs due to having a gastric sleeve done two years ago. Current medications include Tylenol #3 b.i.d., Tizanidine 4 mg q.h.s., Cymbalta, Neurontin and trazadone. She is inquiring about acupressure as she has a chiropractor in mind who is going to perform that on her for increased pain relief. REVIEW OF SYSTEMS, PAST MEDICAL HISTORY, ALLERGIES AND IMAGES: Have been reviewed and noted in the chart. PHYSICAL EXAM: VITAL SIGNS: Blood pressure 138/85, heart rate is 95, temperature is 97,7. Height is 5'4 , weighs 125 kg. GENERAL APPEARANCE: Pleasant, appropriate and in no acute distress. FOCUSED EXAM: BACK: Range of motion within functional limits of lateral rotation and flexion/extension. Paravertebral muscles are non-spasmodic. Veronica's point is mildly tender bilateral with positive Constantin's and compression test. MUSCULOSKELETAL: Motor is intact, 4 out of 5 bilaterally. Slight muscle atrophy noted to bilateral quadriceps. She does walk with a steady gait. She does not use assistive devices. NEUROLOGICAL: Intact bilateral patellar and Achilles reflexes. Negative polyneuropathy. DIAGNOSIS: Bilateral sacroiliitis, lumbar spondylosis, lumbar degenerative disk disease. PLAN: We will continue her on her current medications at the said doses and frequency. Education was given regarding protein nutrition and vitamin compliance. I did support her and agreed to move forward with acupressure if the patient would like to try that. There are no contraindications on our end. We will see her in the clinic in three months' time unless otherwise indicated. The patient agrees with the plan of care. [facility] Signed and Approved by: ZELDA MCDANIEL . 10/10/2021 10:22:00[facility] Diagnosis Onset Date Resolution Status Allergies acute Bipolar 2 disorder acute Hypertension acute Morbid obesity with BMI of 45.0-49.9, adult acute OSMANY (obstructive sleep apnea) acute Restless legs syndrome acute [facility] Work Phone: Evaluation noteNo InformationNorth theScore Other Evaluation noteNo assessment information available [facility] Work Phone: History and physical note Author Jace Graham [facility] March 23, 2023 11:21am Note Date/Time March 23, 2023 11:21am [facility] [address] [place] [address] Gastroenterology H&P Signed Patient: Michelle Be MR#: [id number] : 1960 Acct:[id number] Age/Sex: 62 / F Adm Date: 3 Loc: Room: Type: [facility] Attending Dr: Jace Graham MD Copies to: MD Adelaida Plummer NP-Keiry~ Date of Service: 03/23/2023 HISTORY & PHYSICAL: Patient's history with special attention to the cardiovascular, pulmonary systems and the current problem was reviewed with the patient immediately prior to the procedure. Present medications and doses reviewed in the EMR. Allergies and pertinent laboratory tests were also reviewedat this time in the EMR. The physical examination, as below, was then performed. Indication, assessment and HPI: 62-year-old female presents for screening colonoscopy Family history of GI malignancy? No PHYSICAL EXAMINATION Mouth and Pharynx : Moist mucus membranes, normal dentition Cardiac: Regular rate, regular rhythm Pulmonary: Clear to auscultation bilaterally, no wheezing Neurological: Alert and oriented x3, no focal deficits noted Abdomen: Abdomen soft, non-tender REVIEW OF SYSTEMS Constitutional: Denies malaise, fevers Cardiovascular: Denies chest pain, palpitations Respiratory: Denies shortness of breath, wheezing Gastrointestinal: Per HPI Genitourinary: Denies dysuria, polyuria Musculoskeletal: Denies joint swelling, joint stiffness Neurological: Denies numbness, tingling Integumentary: Denies rashes, skin lesions Endocrine: Denies fatigue, weight loss Written informed consent obtained from the patient. Risks (including but not limited to perforation, infection, bloating, bleeding, need for emergent surgeryand loss of life), benefits and alternatives explained and questions answered. The patient verbalized understanding. Based on history patient is an appropriate candidate for the procedure. Jace Graham MD Documented By: Jace Graham MD 03/23/23 112 Signed By: <Electronically signed by Jace Graham MD> 03/23/23 1121 [facility] Work Phone: History general Narrative - Reported* Type Description Date Medical History RLS Medical History fibromylgia Medical History DDD Medical History Bipolar type 2 Medical History hx stroke Surgical History C section x2 Surgical History D&C x 2 Surgical History tonsillectomy Surgical History cholecystectomy Surgical History hemicolectomy Surgical History lap band Surgical History ORIF right knee 2017 Surgical History SCOTT-N-Y 2019 Surgical History LEFT WRIST TENDON RELEASE 2022 Hospitalization History see above surg Hospitalization History stroke 2017 [facility] Other Hospital Discharge instructions Additional Instructions Regular Diet No Activity [facility] Work Phone: Hospital Discharge instructions Additional Instructions DISCHARGE INSTRUCTIONS FOR COLONOSCOPY WHAT TO EXPECT: - You may feel full, gassy or cramping after your procedure. In some cases, this may be from a few hours to a day. Walking may help relieve the discomfort. - If you have polyp(s) removed you may note some minor bloody discharge after your first bowel movements. - You should begin to recover from anesthesia within 1 hour of the procedure, however may feel groggy for the next 24 hours. DO's AND DON'Ts: - Call your doctor right away if you have a hard abdomen, severe pain, are passing lots of bright red blood or clots. - Call your doctor if you develop any rashes, hives or difficulty breathing. - Let your doctor know if you have not had a bowel movement by 3 days after your procedure. - If you take 81 mg aspirin for your heart it is safe to resume this medication. - If you take other blood thinner medications your doctor will instruct you when these can safely be resumed. - Do NOT drive for 24 hours. - Do NOT operate machinery such as power tools, lawn mowers, snow blowers, sewing machines, etc. for 24 hours. - Avoid alcoholic beverages and drugs for allergies, nerves, or sleep. - Do NOT stay alone. Do NOT leave your child unattended. - Do NOT make important personal or business decisions or sign any legal documents. - Eat solid foods and drink liquids in smaller amounts than usual until normal appetite returns. If you should experience an upset stomach, liquids high in sugar content (soda, Manoj-Aid, non-acid juices) are recommended. - You can resume normal activities tomorrow. FOLLOW UP & RECOMMENDATIONS: -Follow-up with Dr. Graham as needed -Notify the doctor if you have any problems. -Repeat colonoscopy in 10 years. -Follow up with PCP. -Office number [phone].[facility] Work Phone: Summary Purpose Family History No Family History Records Found Relationship Condition Age at Onset Recorded Date/T savita Not Specified Diabetes mellitus Unknown father Hypertension Unknown father Sick sinus syndrome Unknown Advance Directives No Advanced Directives Records Found Advance Directive Response Recorded Date/ Time Advance Directives No May 7:44pm Advance Directive Response Recorded Date/ Time Advance Directives No May 6:44pm Chief Complaint and Reason for Visit Chief Complaint Bipolar Depression Reason for Visit Allergies Bipolar 2 disorder Hypertension Morbid obesity with BMI of 45.0-49.9, adult OSMANY (obstructive sleep apnea) Restless legs syndrome Chief Complaint Screening Additional Source Comments INFORMATION SOURCE (unrecogn ized section and content) DATE CREATED AUTHOR 02/18/2019 [facility] DATE CREATED AUTHOR AUTHOR'S ORGANIZ ATION 11/15/2021 [facility] DATE CREATED AUTHOR AUTHOR'S ORGANIZ ATION 08/16/2022 [facility] DATE CREATED AUTHOR AUTHOR'S ORGANIZ ATION 03/13/2023 [facility] EPIC DATE CREATED AUTHOR AUTHOR'S ORGANIZ ATION 03/23/2023 [facility] Care Teams (unrecognized sec tion and content) Team Status: Active Member Role Status Dates Adelaida Carrion Primary Care Provider Active Team Status: Inactive Member Role Status Dates Adelaida Carrion Primary Care Provider Active Gaudencio Monk MD Admit Provider, Attending Pr ovider Active Andreina Vieira , JOHANN Other Provider Active Camilla Pina , JOHANN Other Provider Active Ruchi Hurtado , RN Other Provider Active Lisa Crooks , RN Other Provider Active Tash Mejias , JOHANN Other Provider Active Elzbieta Kim , JOHANN Other Provider Active Walker Pringle MD Other Provider Active Adelaida Marsh , MACHINE I ENGRAVER Other Provider Active Jessica Murillo , DO Other Provider Active Obdulio Bragg MD Other Provider Active Joon Cristina , DO Other Provider Active Torin Robert MD Other Provider Active Dawn Barrera MD Other Provider Active Mari Soler , ANP-BC Other Provider Active Sofi Almanzar MD Other Provider Active Sharad Gallegos MD Other Provider Active Aby Cain MD Other Provider Active Hillary Carrera MD Other Provider Active Julio César Mckeon , DO Other Provider Active Valentine Mak MD Other Provider Active Raymond Strong MD Other Provider Active Joellen Le , INTERNATIONAL ACCOUNT EXECUTIVE-C Other Provider Active Severo Yancey MD Other Provider Active Rao Webber MD Other Provider Active Yuan Shi MD Other Provider Active Delroy Ramirez MD Other Provider Active Berta Comer , DO Other Provider Active Negrito Ruiz , DO Other Provider Active Lacho Singh , DO Other Provider Active Rachana Hobson , MACHINE I ENGRAVER Other Provider Active Rob Lake , DO Other Provider Active Jeff Alvarez MD Other Provider Active Urmila Rinaldi MACHINE I ENGRAVER Other Provider Active Bina Mayberry MACHINE I ENGRAVER Other Provider Active Mir Bradford MD Other Provider Active Te Da Silva MD Other Provider Active Debra Landaverde , JOHANN Other Provider Active Team Status: Inactive Member Role Status Dates Adelaida Carrion Primary Care Provider Active Jace Graham MD Attending Provider Active REASON FOR VISIT (unrecogniz ed section and content) POSS YEAST INFECTION IN GROI NMAIL PPW FOR RECORDS PERTAINING TO PATIENTS WHO ARE OR HAVE BEEN ENROLLED IN A CHEMICAL DEPENDENCY/SUBSTANCEABUSE PROGRAM, SOME INFORMATION MAY BE OMITTED. This clinical summary was aggregated from multiple sources. Caution should be exercised in using it in the provision of clinical care. This summary normalizes information from multiple sources, and as a consequence, information in this document may materially change the coding, format and clinical context of patient data. In addition, data may be omitted in some cases. CLINICAL DECISIONS SHOULD BE BASED ON THE PRIMARY CLINICAL RECORDS. [employer] [facility]. provides no warranty or guarantee of the accuracy or completeness of information in this document.
== END 2023-03-06 09:13 | disposition home or self-care (01) ==
LOC: MRI 09:12
PROVIDERS: PCP Nurse Practitioner; Visit Provider Personal Emergency Response Attendant
DX: M23.91 Unspecified internal derangement of right knee (principal); M17.11 Unilateral primary osteoarthritis, right knee
CPT/HCPCS: 73721

== ENCOUNTER 2023-03-10 06:29 | Day surgery (SDC) | payer MEDICARE, SELFPAY ==
[2023-03-10 07:17] VITALS: BP 109/72; PULSE 79; RESP 16; TEMP 36.6; O2SAT 95
[2023-03-10] MEDS: 0.9 % SODIUM CHLORIDE 500 ML IV (07:34)
[2023-03-10] MEDS: BUPIVACAINE HCL 0.25% PF 25 MG/10 ML VIAL 4 ML INJ (07:45)
[2023-03-10] MEDS: METHYLPREDNISOLONE ACETATE 40 MG/ML VIAL INJ (07:46)
[2023-03-10] MEDS: LIDOCAINE HCL 2% 400 MG/20 ML MDV 8 ML INJ (07:59)
[2023-03-10 08:00] VITALS: BP 125/78; PULSE 76; RESP 14; TEMP 36.5
--- NOTE | 2023-03-10 09:19 | W.PM.PROCNOT ---
Date of procedure: 03/10/23 Pre-op diagnosis: Lumbar spondylosis Post-op diagnosis: same as pre-op Procedure: Left Lumbar 4/5, 5/sacral 1 Radiofrequency ablation Under fluoroscopic guidance Rhizotomy was created using radio frequency ablation at 80?C for 90 seconds 1 to 2 lesions created at each site. Post lesioning injection of 2 mL each of 0.25% Marcaine and 2% lidocaine with Depo-Medrol 40mg. 0.5 to 1 mL injected at each site IV in place yes If Intravenous fluids: NS at KVO Anesthesia local 2% lidocaine for Anesthesia Other: MAC Timeout process compliant After informed consent obtained.Patient brought to the procedure room placed in the prone position skin overlying the area was prepped and draped in a sterile fashion using betadine. 25 gauge needle was used to create a skin wheal over each of the targeted areas utilizing 2% lidocaine. A rhizotomy needle with a 10 mm active tip was inserted over each of the anesthetized areas and directed towards each of the medial branches accomplished under fluoroscopic guidance. after encountering the same we had positive sensory stimulation, negative motor stimulation was noted. lesions were then created. Post lesioning, steroid solution was injected needles removed. Patient was transferred to recovery room in stable condition to be discharged home after meeting criteria. Anesthesia: MAC Surgeon: Tejal Montaño Condition: stable
== END 2023-03-10 08:25 | disposition home or self-care (01) ==
PROVIDERS: PCP Nurse Practitioner; Visit Provider Anesthesiology Pain Medicine
DX: M47.816 Spondylosis without myelopathy or radiculopathy, lumbar region (principal)
CPT/HCPCS: 64635; 64636; J1030; J2704

== ENCOUNTER 2023-03-25 15:00 | Outpatient (OUT) | payer MEDICARE, SELFPAY ==
--- NOTE | 2023-03-25 15:13 | XR_ITS ---
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 There is small spur off the posterior inferior os calcis. There is moderate spur off the posterior os calcis at the attachment of the Achilles. XR/XR foot LT min 3V IMPRESSION: Left foot radiographs show no evidence of acute abnormalities. Electronically authenticated by: VALERY HARRIS Date: 03/26/2023 08:14
--- OUTSIDE RECORDS SUMMARY | 2023-03-26 09:47 | XMS_ITS | CCD ---
Author Name Unknown Address [address] [place] [address] Organization [facility] Care Team Providers Care Aeronautical Engineering Officer Name Role Phone CHRISTIAN SUKI Admitting Unavailable EBRAHEIM, SUKI Attending Unavailable AICHHOLZ, ADELAIDA Referring Unavailable AICHHOLZ, ADELAIDA Primary Care Unavailable [place] Procedure Practitioner Unavailab HELADIO JacobIL Surgeon Unavailable [place] Procedure Practitioner Unavailab CHAPARRITA Goncalves Surgeon Unavailable BRIDGETTE MACEDO Admitting Unavailable BRIDGETTE MACEDO Attending Unavailable AICHHOLZ, FLORIST HELPER ADELAIDA Primary Care Unavailable ZIMMER ., DR FINA Iverson Admitting Unavailable ZIMMER ., DR FINA Iverson Attending Unavailable AICHHOLZ, FLORIST HELPER ADELAIDA Primary Care Unavailable MCDANIEL ., ZELDA Consulting Unavailable LAKSHMIPATHY ., NARENDRANATH Consulting Paula vailable LAKSHMIPATHY ., NARENDRANATH Admitting Paula vailable LAKSHMIPATHY ., NARJEANARANATH Attending Paula vailable AICHHOLZ, FLORIST HELPER ADELAIDA Primary Care Unavailable LAKSHMIPATHY ., NARENDRANATH Consulting Paula vailable AICHHOLZ, FLORIST HELPER ADELAIDA Primary Care Unavailable MARKER ., DR CHAUDHRY Admitting Unavailable MARKER ., DR CHAUDHRY Attending Unavailable MARKER ., DR CHAUDHRY Consulting Unavailable AICHHOLZ, FLORIST HELPER ADELAIDA Admitting Unavailable AICHHOLZ, FLORIST HELPER ADELAIDA Attending Unavailable AICHHOLZ, FLORIST HELPER ADELAIDA Primary Care Unavailable ZIMMER ., DR FINA Iverson Admitting Unavailable ZIMMER ., DR FINA Iverson Attending Unavailable AICHHOLZ, FLORIST HELPER ADELAIDA Primary Care Unavailable MCDANIEL ., ZELDA Consulting Unavailable ZIMMER ., DR FINA Iverson Admitting Unavailable ZIMMER ., DR FINA Iverson Attending Unavailable AICHHOLZ, FLORIST HELPER ADELAIDA Primary Care Unavailable MCDANIEL ., ZELDA Consulting Unavailable AICHHOLZ, FLORIST HELPER ADELAIDA Admitting Unavailable AICHHOLZ, FLORIST HELPER ADELAIDA Attending Unavailable AICHHOLZ, FLORIST HELPER ADELAIDA Primary Care Unavailable AICHHOLZ, FLORIST HELPER ADELAIDA Consulting Unavailable AICHHOLZ, FLORIST HELPER ADELAIDA Admitting Unavailable AICHHOLZ, FLORIST HELPER ADELAIDA Attending Unavailable AICHHOLZ, FLORIST HELPER ADELAIDA Primary Care Unavailable AICHHOLZ, FLORIST HELPER ADELAIDA Consulting Unavailable MISC, DR COTE Admitting Unavailable MISC, DR COTE Attending Unavailable AICHHOLZ, FLORIST HELPER ADELAIDA Primary Care Unavailable AICHHOLZ, FLORIST HELPER ADELAIDA Consulting Unavailable PRITESHC, DR COTE Consulting Unavailable STARR, DR KINGSLEY Atkins Consulting Unavailable ZIMMER ., DR FINA Iverson Admitting Unavailable ZIMMER ., DR FINA Iverson Attending Unavailable AICHHOLZ, FLORIST HELPER ADELAIDA Primary Care Unavailable MCDANIEL ., ZELDA Consulting Unavailable ZIMMER ., DR FINA Iverson Admitting Unavailable ZIMMER ., DR FINA Iverson Attending Unavailable AICHOLZ, FLORIST HELPER ADELAIDA Primary Care Unavailable ZIMMER ., DR FINA Iverson Consulting Unavailable OMID LAY Consulting Unavailable ZIMMER ., DR FINA Iverson Admitting Unavailable ZIMMER ., DR FINA Iverson Attending Unavailable AICHOLZ, FLORIST HELPER ADELADIA Primary Care Unavailable MCDANIEL ., ZELDA Consulting Unavailable AICHHOLZ, FLORIST HELPER ADELAIDA Primary Care Unavailable HALKER ., ARIAN Admitting Unavailable HALKER ., ARIAN Attending Unavailable LAKSHMIPATHY ., NARENDRANATH Consulting Paula vailable HALKER ., ARIAN Consulting Unavailable LAKSHMIPATHY ., NARENDRANATH Admitting Paula vailable LAKSHMIPATHY ., NARENDRANATH Attending Paula vailable AICHHOLZ, FLORIST HELPER ADELAIDA Primary Care Unavailable LAKSHMIPATHY ., NARENDRANATH Consulting Paula vailable AICHHOLZ, FLORIST HELPER ADELAIDA Admitting Unavailable AICHHOLZ, FLORIST HELPER ADELAIDA Attending Unavailable AICHHOLZ, FLORIST HELPER ADELAIDA Primary Care Unavailable AICHHOLZ, FLORIST HELPER ADELAIDA Consulting Unavailable BRIDGETTE MACEDO Admitting Unavailable BRIDGETTE MACEDO Attending Unavailable AICHHOLZ, FLORIST HELPER ADELAIDA Primary Care Unavailable STARR, DR KINGSLEY Atkins Consulting Unavailable BRDIGETTE MACEDO Consulting Unavailable PURA, GILMER Admitting Unavailable PURA, GILMER Attending Unavailable PURA, GILMER Consulting Unavailable AICHHOLZ, FLORIST HELPER ADELAIDA Primary Care Unavailable AICHHOLZ, FLORIST HELPER ADELAIDA Primary Care Unavailable DR WILLI RINALDI Admitting Unavailable DR WILLI RINALDI Attending Unavailable DEEJAY, DR WILLI Atkins Consulting Unavailable AICHHOLZ, FLORIST HELPER ADELAIDA Primary Care Unavailable ALMAZ ., DANNY Admitting Unavailable ALMAZ ., DANNY Attending Unavailable DR KINGSLEY CLEMENTS Consulting Unavailable ALMAZ ., DANNY Consulting Unavailable LAKSHMIPATHY ., NARENDRANATH Admitting Paula vailable LAKSHMIPATHY ., NARENDRANATH Attending Paula vailable AICHHOLZ, FLORIST HELPER ADELAIDA Primary Care Unavailable AICHHOLZ, FLORIST HELPER ADELAIDA Admitting Unavailable AICHHOLZ, FLORIST HELPER ADELAIDA Attending Unavailable AICHHOLZ, FLORIST HELPER ADELAIDA Primary Care Unavailable AICHHOLZ, FLORIST HELPER ADELAIDA Admitting Unavailable AICHHOLZ, FLORIST HELPER ADELAIDA Attending Unavailable AICHHOLZ, FLORIST HELPER ADELAIDA Primary Care Unavailable AICHHOLZ, FLORIST HELPER ADELAIDA Consulting Unavailable ZIEBER, DR KINGSLEY Atkins Consulting Unavailable HALKER ., ARIAN Admitting Unavailable HALKER ., ARIAN Attending Unavailable AICHHOLZ, FLORIST HELPER ADELAIDA Primary Care Unavailable Aichholz, Adelaida J [...] Other Provider DO Jessica Murillo Other Provider [phone] MD Obdulio Bragg Other Provider [phone] DO Joon Cristina Other Provider MD Torin Robert Other Provider [phone] MD Dawn Barrera Other Provider Karlene, ANP-BC Mari Other Provider [phone] MD Sofi Almanzar Other Provider MD Sharad Gallegos Other Provider MD Aby Cain Other Provider MD Hillary Carrera Other Provider DO Julio César Mckeon Other [...] Care Provider MD Jace Graham Attending Provider Adelaida Carrion Primary Care Unavailable Aleshia, Eduardo [...] to adverse reactions (disorder) 4 rash [facility] (3 sources) levETIRAcetam; Translations: [KEPPRA] Drug Allergy 9 [facility] (3 sources) milnacipran; Translations: [SAVELLA] Drug Allergy 3 [facility] (1 source) Penicillin; Translations: [PENICILLIN] Drug Allergy 8 [facility] (5 sources) Prochlorperazin e; Translations: [COMPAZINE] Drug Allergy 3 agitation [facility] (8 sources) Tetracycline; Translations: [TETRACYCLINE] Drug Allergy 3 Unknown Reaction, Unknown [facility] (4 sources) Penicillins Drug allergy (disorder) 3 Unknown Reaction [facility] (5 sources) levETIRAcetam; Translations: [levetiracetam] Drug Allergy 3 Unknown Reaction, altered mental status [facility] (5 sources) milnacipran; Translations: [milnacipran] Drug Allergy 3 hives [facility] (3 sources) Prochlorperazin e; Translations: [prochlorperazi ne] Drug Allergy 3 Agitated [facility] (2 sources) Penicillin G Drug Allergy as a child [facility] Other (2 sources) Tetracaine Drug Allergy Unknown [facility] Other (1 source) Penicillins Drug allergy (disorder) 3 [facility] Repository Medications Current Medications Medication Drug Class(es) [...] 2023 12:00am take 2 tablets by mo [facility] once daily at bedtime Melatonin 10 MG 2 TABLETS Orally QHS Active Ixhcvujucnbz-Cst-Bqbf-Fa-Vit K (Bariatric Multivitamins) 45 mg iron- 800 mcg-120 mcg Capsule (2 sources) Start: 11-17-2022 take 1 capsule by mouth once daily Thhlothldnzy-Rsu-Asiq-Fa-Vit K (Bariatric Multivitamins) 45 mg iron- 800 mcg-120 mcg Capsule Active 1 CAP PO Daily November 16, 2022 11:00pm Start: 11-17-2022 take 1 capsule by mo uth once daily Riwrcxfhaidt-Qiq-Yyeq-Fa-Vit K (Bariatri c Multivitamins) 45 mg iron- [...] 02-20-2022 Episodic Other aftercare (1 source) Other intermediate (current) drug therapy; Translations: [OTH GROUP HOME CURRENT DRUG THERAPY] Onset: 04-29-2022 Episodic Other [...] Results Test Name Value Interpretation Reference Range Facility Amphetamine Screen Ql (U)Ord ered By: Jace Graham on 03-23-2023 Amphetamines Ql (U) Negative Negative [facility] Barbiturates [Presence] in U rine by Screen methodOrdered By: Jace Graham on 03-23-2023 Barbiturates Screen Ql (U) Negative Negative [facility] Benzodiazepines Screen Ql (U )Ordered By: Jace Graham on 03-23-2023 Benzodiazepines Ql (U) Negative Negative [facility] Benzoylecgonine [Presence] i n Urine by Screen methodOrdered By: Jace Graham on 03-23-2023 Benzoylecgonine Screen Ql (U) Negative Negative [facility] Cannabinoids [Presence] in U rine by Screen methodOrdered By: Jace Graham on 03-23-2023 Cannabinoids Screen Ql (U) Negative Negative [facility] Comment on above: These are unconfirme d results and should not be used for legal purposes. Drug Cut-Off Concentration: AMPH 1000 ng/mL ELKIN 200 ng/mL ATIYA 200 ng/mL COCM 300 ng/mL OP 300 ng/mL PCP 25 ng/mL THC 20 ng/mL Drug Screen,Urineon 03-23-20 23 Amphetamine Screen,Urine Negative Normal Negative [facility] Comment on above: Performed By: #### U RDS #### [address] Barbiturate Screen,Urine Negative Normal Negative [facility] Comment on above: Performed By: #### U RDS #### [facility] [address] [place] [address] [place] Benzodiazepines Screen,Urine Negative Normal Negative [facility] Comment on above: Performed By: #### U RDS #### [facility] [address] [place] [address] Cannabinoid Screen,Urine Negative Normal Negative [facility] Comment on above: Result Comment: Thes e are unconfirmed results and should not be used for legal purposes. Drug Cut-Off Concentration: AMPH 1000 ng/mL ELKIN 200 ng/mL ATIYA 200 ng/mL COCM 300 ng/mL OP 300 ng/mL PCP 25 ng/mL THC 20 ng/mL PERFORMED BY: [place] [id number] PATHOLOGIST MACHINE BUFFER AN CURRY M.D. Performed By: #### U RDS #### [facility] [address] [place] [address] [place] Cocaine Screen,Urine Negative Normal Negative [facility] Comment on above: Performed By: #### U RDS #### [facility] [address] [place] [address] [place] Opiate Screen,Urine Negative Normal Negative [facility] Comment on above: Performed By: #### U RDS #### [facility] [address] [place] [address] [place] Phencyclidine Screen,Urine Negative Normal Negative [facility] Comment on above: Performed By: #### U RDS #### [facility] [address] Opiates [Presence] in Urine by Screen methodOrdered By: Jace Graham on 03-23-2023 Opiates Screen Ql (U) Negative Negative [facility] Phencyclidine Screen Ql (U)O rdered By: Jace Graham on 03-23-2023 Phencyclidine Ql (U) Negative Negative [facility] Cholesterol [Mass/volume] in Serum or PlasmaOrdered By: Eduardo Monk on 11-18-2022 Cholesterol [Mass/Vol] 159 mg/dL 140-200 [facility] Comment on above: Chol less than 200 m g/dl low riskChol 201-239 mg/dl borderline riskChol 240 mg/dl and greater high risk Cholesterol in LDL Calc [Mas s/Vol]Ordered By: Eduardo Monk on 11-18-2022 Cholesterol in LDL [Mass/Vol] 84 mg/dL 0-100 [facility] Comment on above: LDL ATP III CLASSIFI CATIONLDL less than 100 mg/dL OptimalLDL 100-129 mg/dL Near or above optimalLDL 130-159 mg/dL Borderline highLDL 160-189 mg/dL HighLDL greater than 189 mg/dL Very high Cholesterol in VLDL Calc [Ma ss/Vol]Ordered By: Eduardo Monk on 11-18-2022 Cholesterol in VLDL [Mass/Vol] 28 mg/dL [facility] Lipid Panelon 11-18-2022 Cholesterol [Mass/Vol] 159 mg/dL Normal 140-200 [facility] Comment on above: Order Comment: teri barney to tomorr morning Result Comment: Chol less than 200 mg/dl low risk Chol 201-239 mg/dl borderline risk Chol 240 mg/dl and greater high risk Performed By: #### L IPID #### [facility] [address] Cholesterol in HDL [Mass/Vol] 46 mg/dL Normal 23-92 [facility] Comment on above: Order Comment: teri barney to tomorr morning Result Comment: HDL CHOL ATP-III CLASSIFICATION Cardiovascular Risk HDL > or equal to 60 mg/dL LOW HDL < 40 mg/dL HIGH Performed By: #### L IPID #### [facility] [address] Cholesterol.total/Chol esterol in HDL [Mass ratio] 3.5 {ratio} Normal <5.0 [facility] Comment on above: Order Comment: teri barney to orr morning Result Comment: PERF ORMED BY: [place] [id number] PATHOLOGIST MACHINE BUFFER AN CURRY M.D. Performed By: #### L IPID #### [facility] [address] LDL Cholesterol,Calculated 84 mg/dL Normal 0-100 [facility] Comment on above: Order Comment: teri barney to tomorr morning Result Comment: LDL ATP III CLASSIFICATION LDL less than 100 mg/dL Optimal LDL 100-129 mg/dL Near or above optimal LDL 130-159 mg/dL Borderline high LDL 160-189 mg/dL High LDL greater than 189 mg/dL Very high Performed By: #### L IPID #### [facility] [address] [place] [id number] [place] Triglyceride w/Reflex 144 mg/dL Normal 0-149 [facility] Comment on above: Order Comment: teri barney to orr morning Result Comment: TRIG ATP III CLASSIFICATION TRIG less than 150 mg/dL Normal TRIG 150-199 mg/dL Borderline high TRIG 200-500 mg/dL High TRIG greater than 500 mg/dL Very high Standard traceable to the Center for Disease Conrtrol and Prevention (CDC) test method. Performed By: #### L IPID #### [facility] [address] VLDL CHOLESTEROL 28 mg/dL Normal [facility] Comment on above: Order Comment: williamson e to tomorrow morning Performed By: #### L IPID #### [facility] [address] Serum or plasma high density lipoprotein (HDL) cholesterol measurementOrdered By: Eduardo Monk on 11-18-2022 Cholesterol in HDL [Mass/Vol] 46 mg/dL 23- [facility] Comment on above: HDL CHOL ATP-III CLA SSIFICATION Cardiovascular RiskHDL > or equal to 60 mg/dL LOWHDL < 40 mg/dL HIGH Serum or plasma total choles terol/high density lipoprotein (HDL) cholesterol mass ratOrdered By: Eduardo Monk on 11-18-2022 Cholesterol.total/Chol esterol in HDL [Mass ratio] 3.5 {ratio} <5.0 [facility] Thyroid Stimulating Hormoneo n 11-18-2022 TSH Qn 2.13 m[IU]/L Normal 0.45-5.33 [facility] Comment on above: Performed By: #### T SH3, [id number] #### [facility] [address] Thyrotropin [Units/volume] i n Serum or PlasmaOrdered By: Eduardo Monk on 11-18-2022 TSH Qn 2.13 m[IU]/L 0.45-5.33 [facility] Triglyceride [Mass/volume] i n Serum or PlasmaOrdered By: Eduardo Monk on 11-18-2022 Triglyceride [Mass/Vol] 144 mg/dL 0-149 [facility] Comment on above: TRIG ATP III CLASSIF ICATIONTRIG less than 150 mg/dL NormalTRIG 150-199 mg/dL Borderline highTRIG 200-500 mg/dL High TRIG greater than 500 mg/dL Very highStandard traceable to the Center for Disease Conrtrol and Prevention (CDC) test method. Vitamin D 25 Hydroxy Totalon 11-18-2022 Vitamin D 25 Hydroxy Total 50.4 ng/mL Normal 30-100 [facility] Comment on above: Result Comment: SKYLER MIN D STATUS 25(OH)VITAMIN D RANGE (ng/mL) Deficient <20 Insufficient 20 to <30 Sufficient 30 to 100 Reference: Lakshmi Altamirano, Cristian SMART, et al. Evaluation,treatment, and prevention of vitamin D deficiency; an Endocrine Society clinical practice guideline. JCEM. 2010; 96(7):1911-. PERFORMED BY: [place] [id number] PATHOLOGIST MACHINE BUFFER AN CURRY M.D. Performed By: #### T SH3, [id number] #### [address] Vitamin D+Metabolites [Mass/ volume] in Serum or PlasmaOrdered By: Eduardo Monk on 11-18-2022 Vitamin D+Metabolites [Mass/Vol] 50.4 ng/mL 30-100 [facility] Comment on above: VITAMIN D STATUS 25( OH)VITAMIN D RANGE (ng/mL) Deficient <20 Insufficient 20 to <30Sufficient 30 to 100Reference: Lakshmi Altamirano, Cristian SMART, et al. Evaluation,treatment, and prevention of vitamin D deficiency; an Endocrine Society clinical practice guideline. JCEM. 2010; 96(7):1911-30. CBC AUTO DIFFon 07-25-2022 BASO # 0.1 103/ul Normal 0.0-0.1 [facility] Comment on above: Performed By: #### A 1C #### [facility] [address] [address] [address] Bebeto Williamson Basophils/100 WBC (Bld) 0.6 % Normal 0.2-2.0 [facility] Comment on above: Performed By: #### A 1C #### [facility] [address] [place] [address] Dr. Bebeto Williamson EO # 0.2 103/ul Normal 0.0-0.7 [facility] Comment on above: Performed By: #### A 1C #### [facility] [address] [place] [address] Dr. Bebeto Williamson Eosinophils/100 WBC (Bld) 2.3 % Normal 0.9-7.0 [facility] Comment on above: Performed By: #### A 1C #### [facility] [address] [place] [address] Dr. Bebeto Williamson Erythrocyte distribution width (RBC) [Ratio] 13.8 % Normal 11.0-15.0 [facility] Comment on above: Performed By: #### A 1C #### [facility] [address] [place] [address] Dr. Bebeto Williamson Hematocrit (Bld) [Volume fraction] 41.2 % Normal 36.0-48.0 [facility] Comment on above: Performed By: #### A 1C #### [facility] [address] [place] [address] Dr. Bebeto Williamson Hemoglobin (Bld) [Mass/Vol] 13.2 g/dL Normal 12.0-16.0 [facility] Comment on above: Performed By: #### A 1C #### [facility] [address] [place] [address] Dr. Bebeto Williamson IG # 0.03 10e3/ul Normal 0.00-0.03 [facility] Comment on above: Performed By: #### A 1C #### [facility] [address] [place] [address] Dr. Bebeto Williamson IG % 0.4 % Normal 0.0-0.5 [facility] Comment on above: Performed By: #### A 1C #### [facility] [address] [place] [address] Dr. Bebeto Williamson LYMPH # 2.1 103/ul Normal 1.2-3.8 [facility] Comment on above: Performed By: #### A 1C #### [facility] [address] [place] [address] Dr. Bebeto Williamson Lymphocytes/100 WBC (Bld) 25.9 % Normal 20.5-60.0 [facility] Comment on above: Performed By: #### A 1C #### [facility] [address] [place] [address] Dr. Bebeto Williamson MANUAL DIFF REQ NO Normal [facility] Comment on above: Performed By: #### A 1C #### [facility] [address] [place] [address] Dr. Bebeto Williamson MCH (RBC) [Entitic mass] 28.0 pg Normal 26.7-34.0 [facility] Comment on above: Performed By: #### A 1C #### [facility] [address] [place] [address] Dr. Bebeto Williamson MCHC (RBC) [Mass/Vol] 32.0 g/dL Normal 29.9-35.2 [facility] Comment on above: Performed By: #### A 1C #### [facility] [address] [place] [address] Dr. Bebeto Williamson MCV (RBC) [Entitic vol] 87.5 fL Normal 81.0-99.0 [facility] Comment on above: Performed By: #### A 1C #### [facility] [address] [place] [address] Dr. Bebeto Williamson MONO # 0.5 103/ul Normal 0.3-0.8 [facility] Comment on above: Performed By: #### A 1C #### [facility] [address] [place] [address] Dr. Bebeto Williamson Monocytes/100 WBC (Bld) 6.6 % Normal 1.7-12.0 [facility] Comment on above: Performed By: #### A 1C #### [facility] [address] [place] [address] Dr. Bebeto Williamson NEUT # 5.1 103/ul Normal 1.4-6.5 [facility] Comment on above: Performed By: #### A 1C #### [facility] [address] [place] [address] Dr. Bebeto Williamson Neutrophils/100 WBC (Bld) 64.2 % Normal 43.0-75.0 [facility] Comment on above: Performed By: #### A 1C #### [facility] [address] [place] [address] Dr. Bebeto Williamson Platelet mean volume (Bld) [Entitic vol] 11.2 fL Normal 9.5-13.5 [facility] Comment on above: Performed By: #### A 1C #### [facility] [address] [place] [address] Dr. Bebeto Williamson PLT 252 103/ul Normal 150-450 [facility] Comment on above: Performed By: #### A 1C #### [facility] [address] [place] [address] Dr. Bebeto Williamson RBC 4.71 106/ul Normal 4.20-5.40 [facility] Comment on above: Performed By: #### A 1C #### [facility] [address] [place] [address] Dr. Bebeto Williamson WBC 8.0 103/ul Normal 4.0-11.0 [facility] Comment on above: Performed By: #### A 1C #### [facility] [address] [place] [address] Dr. Bebeto Williamson GLYCOHEMOGLOBIN A1Con 2022 ADA RECOMMENDATION SEE BELOW Normal [facility] Comment on above: Result Comment: ADA RECOMMENDED LIMIT 4.0 - 6.0 ADA THERAPEUTIC TARGET < 7.0 ACTION SUGGESTED > 7.0 Performed By: #### A 1C #### [facility] [address] [place] [address] Dr. Bebeto Williamson Glucose [Mass/Vol] 114 mg/dL Normal [facility] Comment on above: Performed By: #### A 1C #### [facility] [address] [place] [address] Dr. Bebeto Williamson HbA1c (Bld) [Mass fraction] 5.6 % Normal 4.5-6.2 [facility] Comment on above: Performed By: #### A 1C #### [facility] [address] [place] [address] Dr. Bebeto Williamson IRONon 07-25-2022 Iron [Mass/Vol] 60.0 ug/dL Normal 50.0-170.0 [facility] Comment on above: Performed By: #### V ITB12, IRON #### [facility] [address] [address] [address] Bebeto Williamson LIPID PROFILEon 07-25-2022 CHOL-HDL RATIO NORM SEE BELOW Normal [facility] Comment on above: Result Comment: 3.3 - 4.4 LOW RISK 4.4 - 7.1 AVERAGE RISK 7.1 - 11.0 MODERATE RISK >11.0 HIGH RISK Performed By: #### C MP, LIPID #### [facility] [address] [address] [address] Bebeto Williamson Cholesterol [Mass/Vol] 144 mg/dL Normal <=200 Th [facility] Comment on above: Performed By: #### C MP, LIPID #### [facility] [address] [address] [address] Bebeto Williamson Cholesterol in HDL [Mass/Vol] 39 mg/dL Critically low 40-60 [facility] Comment on above: Performed By: #### C MP, LIPID #### [facility] [address] [address] [address] Bebeto Williamson Cholesterol in LDL [Mass/Vol] 74.6 mg/dL Normal [facility] Comment on above: Performed By: #### C MP, LIPID #### [facility] [address] [address] [address] Bebeto Williamson Cholesterol.total/Chol esterol in HDL [Mass ratio] 3.7 {ratio} Normal [facility] Comment on above: Performed By: #### C MP, LIPID #### [facility] [facility] [address] [address] [address] Bebeto Williamson HDL NORMAL > or = 60 mg/dl - LO W CARDIOVASCULAR RISK <40 mg/dl - HIGH CARDIOVASCULAR RISK Normal [facility] Comment on above: Performed By: #### C MP, LIPID #### [facility] [address] [address] [address] Bebeto Williamson LDL CALC NORMAL SEE BELOW Normal [facility] Comment on above: Result Comment: <100 mg/dl OPTIMAL 100 - 129 mg/dl NEAR OR ABOVE OPTIMAL 130 - 159 mg/dl BORDERLINE HIGH 160 - 189 mg/dl HIGH >190 mg/dl VERY HIGH Performed By: #### C MP, LIPID #### [facility] [address] [address] [address] Bebeto Williamson Triglyceride [Mass/Vol] 152 mg/dL Critically high <=150 [facility] Comment on above: Performed By: #### C MP, LIPID #### [facility] [address] [address] [address] Bebeto Williamson VLDL CALC 30.4 mg/dL Normal [facility] Comment on above: Performed By: #### C MP, LIPID #### [facility] [address] [address] [address] Bebeto Williamson PROF 14(COMP METB)on 023 Albumin [Mass/Vol] 3.7 g/dL Normal 3.4-5.0 [facility] Comment on above: Performed By: #### C MP, LIPID #### [facility] [address] [place] [address] Dr. Bebeto Williamson Albumin/Globulin [Mass ratio] 0.9 {ratio} Normal [facility] Comment on above: Performed By: #### C MP, LIPID #### [facility] [address] [place] [address] Dr. Bebeto Williamson ALP [Catalytic activity/Vol] 90 U/L Normal 46-116 [facility] Comment on above: Performed By: #### C MP, LIPID #### [facility] [address] [place] [address] Dr. Bebeto Williamson ALT [Catalytic activity/Vol] 38 U/L Normal 14-59 [facility] Comment on above: Performed By: #### C MP, LIPID #### [facility] [address] [place] [address] Dr. Bebeto Williamson Anion gap [Moles/Vol] 12.1 mmol/L Normal [facility] Comment on above: Performed By: #### C MP, LIPID #### [facility] [address] [address] [address] Bebeto Williamson AST [Catalytic activity/Vol] 26 U/L Normal 15-37 [facility] Comment on above: Performed By: #### C MP, LIPID #### [facility] [address] [place] [address] Dr. Bebeto Williamson Bilirubin [Mass/Vol] 0.3 mg/dL Normal 0.2-1.0 [facility] Comment on above: Performed By: #### C MP, LIPID #### [facility] [address] [place] [address] Dr. Bebeto Williamson Calcium [Mass/Vol] 9.3 mg/dL Normal 8.5-10.1 [facility] Comment on above: Performed By: #### C MP, LIPID #### [facility] [address] [place] [address] Dr. Bebeto Williamson Chloride [Moles/Vol] 107 mmol/L Normal 98-107 [facility] Comment on above: Performed By: #### C MP, LIPID #### [facility] [address] [place] [address] Dr. Bebeto Williamson CO2 [Moles/Vol] 27.9 mmol/L Normal 21.0-32.0 [facility] Comment on above: Performed By: #### C MP, LIPID #### [facility] [address] [place] [address] Dr. Bebeto Williamson Creatinine [Mass/Vol] 0.95 mg/dL Normal 0.55-1.02 [facility] Comment on above: Performed By: #### C MP, LIPID #### [facility] [address] [place] [address] Dr. Bebeto Williamson EGFR-AF CITIZEN OF [place] >60 Normal >=60 [facility] Comment on above: Performed By: #### C MP, LIPID #### [facility] [address] [place] [address] Dr. Bebeto Williamson EGFR-NON AF CITIZEN OF [place] 60 mL/min/1.73m2 Normal >=60 [facility] Comment on above: Performed By: #### C MP, LIPID #### [facility] [address] [address] [address] Bebeto Williamson Globulin (S) [Mass/Vol] 3.9 g/dL Normal [facility] Comment on above: Performed By: #### C MP, LIPID #### [facility] [address] [place] [address] Dr. Bebeto Williamson Glucose [Mass/Vol] 108 mg/dL Critically high 74-106 [facility] Comment on above: Performed By: #### C MP, LIPID #### [facility] [address] [place] [address] Dr. Bebeto Williamson Potassium [Moles/Vol] 4.0 mmol/L Normal 3.5-5.1 [facility] Comment on above: Performed By: #### C MP, LIPID #### [facility] [address] [place] [address] Dr. Bebeto Williamson Protein [Mass/Vol] 7.6 g/dL Normal 6.4-8.2 [facility] Comment on above: Performed By: #### C MP, LIPID #### [facility] [address] [place] [address] Dr. Bebeto Williamson Sodium [Moles/Vol] 143 mmol/L Normal 136-145 [facility] Comment on above: Performed By: #### C MP, LIPID #### [facility] [address] [place] [address] Dr. Bebeto Williamson Urea nitrogen [Mass/Vol] 15.0 mg/dL Normal 7.0-18.0 [facility] Comment on above: Performed By: #### C MP, LIPID #### [facility] [address] [place] [address] Dr. Bebeto Williamson Urea nitrogen/Creatinine [Mass ratio] 15.8 mg/mg Normal [facility] Comment on above: Performed By: #### C MP, LIPID #### [facility] [address] [place] [address] Dr. Bebeto Williamson UA RANDOM W/MICROSCOPICon BACTERIA NONE SEEN Normal NONE SEEN [facility] Comment on above: Performed By: #### A 1C #### [facility] [address] [place] [address] Dr. Bebeto Williamson Bilirubin Ql (U) Negative Normal NEGATIVE [facility] Comment on above: Performed By: #### A 1C #### [facility] [address] [place] [address] Dr. Bebeto Williamson CAST NONE SEEN Normal NONE SEEN [facility] Comment on above: Performed By: #### A 1C #### [facility] [address] [place] [address] Dr. Bebeto Williamson Clarity (U) CLEAR Normal CLEAR [facility] Comment on above: Performed By: #### A 1C #### [facility] [address] [place] [address] Dr. Bebeto Williamson Color (U) YELLOW Normal YELLOW [facility] Comment on above: Performed By: #### A 1C #### [facility] [address] [place] [address] Dr. Bebeto Williamson Crystals LM Nom (Urine sed) NONE SEEN Normal NONE SEEN [facility] Comment on above: Performed By: #### A 1C #### [facility] [address] [place] [address] Dr. Bebeto Williamson Epithelial cells LM Ql (Urine sed) NONE SEEN Normal NONE SEEN /RARE [facility] Comment on above: Performed By: #### A 1C #### [facility] [address] [place] [address] Dr. Bebeto Williamson Glucose Ql (U) Negative Normal NEGATIVE [facility] Comment on above: Performed By: #### A 1C #### [facility] [address] [place] [address] Dr. Bebeto Williamson Hemoglobin Ql (U) Negative Normal NEGATIVE [facility] Comment on above: Performed By: #### A 1C #### [facility] [address] [place] [address] Dr. Bebeto Williamson Ketones Ql (U) Negative Normal NEGATIVE [facility] Comment on above: Performed By: #### A 1C #### [facility] [address] [place] [address] Dr. Bebeto Williamson LEUKOCYTES Negative Normal NEGATIVE [facility] Comment on above: Performed By: #### A 1C #### [facility] [address] [place] [address] Dr. Bebeto Williamson MUCOUS NONE SEEN Normal NONE SEEN [facility] Comment on above: Performed By: #### A 1C #### [facility] [address] [place] [address] Dr. Bebeto Williamson Nitrite Ql (U) Negative Normal NEGATIVE [facility] Comment on above: Performed By: #### A 1C #### [facility] [address] [place] [address] Dr. Bebeto Williamson pH (U) 5.5 [pH] Normal 5-9 [facility] Comment on above: Performed By: #### A 1C #### [facility] [address] [place] [address] Dr. Bebeto Williamson RBC NONE SEEN Abnormal 0-2 [facility] Comment on above: Performed By: #### A 1C #### [facility] [address] [place] [address] Dr. Bebeto Williamson SPEC GRAVITY 1.030 Abnormal 1.005-<=1.02 5 [facility] Comment on above: Performed By: #### A 1C #### [facility] [address] [place] [address] Dr. Bebeto Williamson UA PROTEIN Negative Normal NEGATIVE/ TRACE [facility] Comment on above: Performed By: #### A 1C #### [facility] [address] [place] [address] Dr. Bebeto Williamson Urobilinogen Qn (U) 0.2 {Katerin'U}/dL Normal 0.2 - 1. 0 [facility] Comment on above: Performed By: #### A 1C #### [facility] [address] [place] [address] Dr. Bebeto Williamson WBC NONE SEEN Normal NONE SEEN [facility] Comment on above: Performed By: #### A 1C #### [facility] [address] [place] [address] Dr. Bebeto Williamson VITAMIN B12on 07-25-2022 Cobalamin (Vitamin B12) [Mass/Vol] 1684.0 pg/mL Critically high 193.0-986.0 [facility] Comment on above: Performed By: #### V ITB12, IRON #### [facility] [address] [address] [address] Bebeto Williamson PROF CHEM 8 (BAS METB)on Anion gap [Moles/Vol] 12.2 mmol/L Normal [facility] Comment on above: Performed By: #### B MP #### [facility] [address] [address] [address] Bebeto Williamson Calcium [Mass/Vol] 8.9 mg/dL Normal 8.5-10.1 [facility] Comment on above: Performed By: #### B MP #### [facility] [address] [place] [address] Dr. Bebeto Williamson Chloride [Moles/Vol] 105 mmol/L Normal 98-107 [facility] Comment on above: Performed By: #### B MP #### [facility] [address] [place] [address] Dr. Bebeto Williamson CO2 [Moles/Vol] 29.6 mmol/L Normal 21.0-32.0 [facility] Comment on above: Performed By: #### B MP #### [facility] [address] [place] [address] Dr. Bebeto Williamson Creatinine [Mass/Vol] 0.95 mg/dL Normal 0.55-1.02 [facility] Comment on above: Performed By: #### B MP #### [facility] [address] [place] [address] Dr. Bebeto Williamson EGFR-AF CITIZEN OF [place] >60 Normal >=60 [facility] Comment on above: Performed By: #### B MP #### [facility] [address] [place] [address] Dr. Bebeto Williamson EGFR-NON AF CITIZEN OF [place] 60 mL/min/1.73m2 Normal >=60 [facility] Comment on above: Performed By: #### B MP #### [facility] [address] [place] [address] Dr. Bebeto Williamson Glucose [Mass/Vol] 101 mg/dL Normal 74-106 [facility] Comment on above: Performed By: #### B MP #### [facility] [address] [place] [address] Dr. Bebeto iWlliamson Potassium [Moles/Vol] 3.8 mmol/L Normal 3.5-5.1 [facility] Comment on above: Performed By: #### B MP #### [facility] [address] [place] [address] Dr. Bebeto Williamson Sodium [Moles/Vol] 143 mmol/L Normal 136-145 [facility] Comment on above: Performed By: #### B MP #### [facility] [address] [place] [address] Dr. Bebeto Williamson Urea nitrogen [Mass/Vol] 16.0 mg/dL Normal 7.0-18.0 [facility] Comment on above: Performed By: #### B MP #### [facility] [address] [place] [address] Dr. Bebeto Williamson Urea nitrogen/Creatinine [Mass ratio] 16.8 mg/mg Normal [facility] Comment on above: Performed By: #### B MP #### [facility] [address] [place] [address] Dr. Bebeto Williamson CBC AUTO DIFFon 11-21-2021 BASO # 0.1 103/ul Normal 0.0-0.1 [facility] Comment on above: Performed By: #### A 1C #### [facility] [address] [place] [address] Dr. Bebeto Williamson Basophils/100 WBC (Bld) 1.0 % Normal 0.2-2.0 [facility] Comment on above: Performed By: #### A 1C #### [facility] [address] [place] [address] Dr. Bebeto Williamson EO # 0.2 103/ul Normal 0.0-0.7 [facility] Comment on above: Performed By: #### A 1C #### [facility] [address] [place] [address] Dr. Bebeto Williamson Eosinophils/100 WBC (Bld) 3.3 % Normal 0.9-7.0 [facility] Comment on above: Performed By: #### A 1C #### [facility] [address] [place] [address] Dr. Bebeto Williamson Erythrocyte distribution width (RBC) [Ratio] 13.8 % Normal 11.0-15.0 [facility] Comment on above: Performed By: #### A 1C #### [facility] [address] [place] [address] Dr. Bebeto Williamson Hematocrit (Bld) [Volume fraction] 38.8 % Normal 36.0-48.0 [facility] Comment on above: Performed By: #### A 1C #### [facility] [address] [place] [address] Dr. Bebeto Williamson Hemoglobin (Bld) [Mass/Vol] 12.5 g/dL Normal 12.0-16.0 [facility] Comment on above: Performed By: #### A 1C #### [facility] [address] [place] [address] Dr. Bebeto Williamson IG # 0.02 10e3/ul Normal 0.00-0.03 [facility] Comment on above: Performed By: #### A 1C #### [facility] [address] [place] [address] Dr. Bebeto Williamson IG % 0.3 % Normal 0.0-0.5 [facility] Comment on above: Performed By: #### A 1C #### [facility] [address] [place] [address] Dr. Bebeto Williamson LYMPH # 1.9 103/ul Normal 1.2-3.8 [facility] Comment on above: Performed By: #### A 1C #### [facility] [address] [place] [address] Dr. Bebeto Williamson Lymphocytes/100 WBC (Bld) 29.6 % Normal 20.5-60.0 [facility] Comment on above: Performed By: #### A 1C #### [facility] [address] [place] [address] Dr. Bebeto Williamson MANUAL DIFF REQ NO Normal [facility] Comment on above: Performed By: #### A 1C #### [facility] [address] [place] [address] Dr. Bebeto Williamson MCH (RBC) [Entitic mass] 28.0 pg Normal 26.7-34.0 [facility] Comment on above: Performed By: #### A 1C #### [facility] [address] [place] [address] Dr. Bebeto Williamson MCHC (RBC) [Mass/Vol] 32.2 g/dL Normal 29.9-35.2 [facility] Comment on above: Performed By: #### A 1C #### [facility] [address] [place] [address] Dr. Bebeto Williamson MCV (RBC) [Entitic vol] 86.8 fL Normal 81.0-99.0 [facility] Comment on above: Performed By: #### A 1C #### [facility] [address] [place] [address] Dr. Bebeto Williamson MONO # 0.4 103/ul Normal 0.3-0.8 [facility] Comment on above: Performed By: #### A 1C #### [facility] [address] [place] [address] Dr. Bebeto Williamson Monocytes/100 WBC (Bld) 5.7 % Normal 1.7-12.0 [facility] Comment on above: Performed By: #### A 1C #### [facility] [address] [place] [address] Dr. Bebeto Williamson NEUT # 3.8 103/ul Normal 1.4-6.5 [facility] Comment on above: Performed By: #### A 1C #### [facility] [address] [place] [address] Dr. Bebeto Williamson Neutrophils/100 WBC (Bld) 60.1 % Normal 43.0-75.0 [facility] Comment on above: Performed By: #### A 1C #### [facility] [address] [place] [address] Dr. Bebeto Williamson Platelet mean volume (Bld) [Entitic vol] 11.0 fL Normal 9.5-13.5 [facility] Comment on above: Performed By: #### A 1C #### [facility] [address] [address] [address] Bebeto Williamson PLT 264 103/ul Normal 150-450 [facility] Comment on above: Performed By: #### A 1C #### [facility] [address] [address] [address] Bebeto Williamson RBC 4.47 106/ul Normal 4.20-5.40 [facility] Comment on above: Performed By: #### A 1C #### [facility] [address] [address] [address] Bebeto Williamson WBC 6.3 103/ul Normal 4.0-11.0 [facility] Comment on above: Performed By: #### A 1C #### [facility] [address] [address] [address] Bebeto Williamson GLYCOHEMOGLOBIN A1Con 2021 ADA RECOMMENDATION SEE BELOW Normal [facility] Comment on above: Result Comment: ADA RECOMMENDED LIMIT 4.0 - 6.0 ADA THERAPEUTIC TARGET < 7.0 ACTION SUGGESTED > 7.0 Performed By: #### A 1C #### [facility] [address] [address] [address] Bebeto Williamson Glucose [Mass/Vol] 105 mg/dL Normal [facility] Comment on above: Performed By: #### A 1C #### [facility] [address] [address] [address] Bebeto Williamson HbA1c (Bld) [Mass fraction] 5.3 % Normal 4.5-6.2 [facility] Comment on above: Performed By: #### A 1C #### [facility] [address] [address] [address] Bebeto Williamson IRONon 11-21-2021 Iron [Mass/Vol] 59.0 ug/dL Normal 50.0-170.0 [facility] Comment on above: Performed By: #### A 1C #### [facility] [address] [address] [address] Bebeto Williamson LIPID PROFILEon 11-21-2021 CHOL-HDL RATIO NORM SEE BELOW Normal [facility] Comment on above: Result Comment: 3.3 - 4.4 LOW RISK 4.4 - 7.1 AVERAGE RISK 7.1 - 11.0 MODERATE RISK >11.0 HIGH RISK Performed By: #### C MP, LIPID #### [facility] [address] [address] [address] Bebeto Williamson Cholesterol [Mass/Vol] 139 mg/dL Normal <=200 Th [facility] Comment on above: Performed By: #### C MP, LIPID #### [facility] [address] [address] [address] Bebeto Williamson Cholesterol in HDL [Mass/Vol] 35 mg/dL Critically low 40-60 [facility] Comment on above: Performed By: #### C MP, LIPID #### [facility] [address] [address] [address] Bebeto Williamson Cholesterol in LDL [Mass/Vol] 69.6 mg/dL Normal [facility] Comment on above: Performed By: #### C MP, LIPID #### [facility] [address] [address] [address] Bebeto Williamson Cholesterol.total/Chol esterol in HDL [Mass ratio] 4.0 {ratio} Normal [facility] Comment on above: Performed By: #### C MP, LIPID #### [facility] [address] [address] [address] Bebeto Williamson HDL NORMAL > or = 60 mg/dl - LO W CARDIOVASCULAR RISK <40 mg/dl - HIGH CARDIOVASCULAR RISK Normal [facility] Comment on above: Performed By: #### C MP, LIPID #### [facility] [address] [address] [address] Bebeto Williamson LDL CALC NORMAL SEE BELOW Normal [facility] Comment on above: Result Comment: <100 mg/dl OPTIMAL 100 - 129 mg/dl NEAR OR ABOVE OPTIMAL 130 - 159 mg/dl BORDERLINE HIGH 160 - 189 mg/dl HIGH >190 mg/dl VERY HIGH Performed By: #### C MP, LIPID #### [facility] [address] [address] [address] Bebeto Williamson Triglyceride [Mass/Vol] 172 mg/dL Critically high <=150 [facility] Comment on above: Performed By: #### C MP, LIPID #### [facility] [address] [place] [address] Dr. Bebeto Williamson VLDL CALC 34.4 mg/dL Normal [facility] Comment on above: Performed By: #### C MP, LIPID #### [facility] [address] [place] [address] Dr. Bebeto Williamson PROF 14(COMP METB)on 022 Albumin [Mass/Vol] 3.8 g/dL Normal 3.4-5.0 [facility] Comment on above: Performed By: #### C MP, LIPID #### [facility] [address] [place] [address] Dr. Bebeto Williamson Albumin/Globulin [Mass ratio] 1.1 {ratio} Normal [facility] Comment on above: Performed By: #### C MP, LIPID #### [facility] [address] [place] [address] Dr. Bebeto Williamson ALP [Catalytic activity/Vol] 96 U/L Normal 46-116 [facility] Comment on above: Performed By: #### C MP, LIPID #### [facility] [address] [place] [address] Dr. Bebeto Williamson ALT [Catalytic activity/Vol] 25 U/L Normal 14-59 [facility] Comment on above: Performed By: #### C MP, LIPID #### [facility] [address] [place] [address] Dr. Bebeto Williamson Anion gap [Moles/Vol] 11.8 mmol/L Normal [facility] Comment on above: Performed By: #### C MP, LIPID #### [facility] [address] [place] [address] Dr. Bebeto Williamson AST [Catalytic activity/Vol] 20 U/L Normal 15-37 [facility] Comment on above: Performed By: #### C MP, LIPID #### [facility] [address] [place] [address] Dr. Bebeto Williamson Bilirubin [Mass/Vol] 0.4 mg/dL Normal 0.2-1.0 [facility] Comment on above: Performed By: #### C MP, LIPID #### [facility] [address] [place] [address] Dr. Bebeto Williamson Calcium [Mass/Vol] 8.8 mg/dL Normal 8.5-10.1 [facility] Comment on above: Performed By: #### C MP, LIPID #### [facility] [address] [place] [address] Dr. Bebeto Williamson Chloride [Moles/Vol] 106 mmol/L Normal 98-107 [facility] Comment on above: Performed By: #### C MP, LIPID #### [facility] [address] [place] [address] Dr. Bebeto Williamson CO2 [Moles/Vol] 27.0 mmol/L Normal 21.0-32.0 [facility] Comment on above: Performed By: #### C MP, LIPID #### [facility] [address] [place] [address] Dr. Bebeto Williamson Creatinine [Mass/Vol] 0.97 mg/dL Normal 0.55-1.02 [facility] Comment on above: Performed By: #### C MP, LIPID #### [facility] [address] [place] [address] Dr. Bebeto Williamson EGFR-AF CITIZEN OF [place] >60 Normal >=60 [facility] Comment on above: Performed By: #### C MP, LIPID #### [facility] [address] [place] [address] Dr. Bebeto Williamson EGFR-NON AF CITIZEN OF [place] 59 mL/min/1.73m2 Critically low >=60 [facility] Comment on above: Performed By: #### C MP, LIPID #### [facility] [address] [place] [address] Dr. Bebeto Williamson Globulin (S) [Mass/Vol] 3.4 g/dL Normal [facility] Comment on above: Performed By: #### C MP, LIPID #### [facility] [address] [place] [address] Dr. Bebeto Williamson Glucose [Mass/Vol] 103 mg/dL Normal 74-106 [facility] Comment on above: Performed By: #### C MP, LIPID #### [facility] [address] [place] [address] Dr. Bebeto Williamson Potassium [Moles/Vol] 3.8 mmol/L Normal 3.5-5.1 [facility] Comment on above: Performed By: #### C MP, LIPID #### [facility] [address] [place] [address] Dr. Bebeto Williamson Protein [Mass/Vol] 7.2 g/dL Normal 6.4-8.2 [facility] Comment on above: Performed By: #### C MP, LIPID #### [facility] [address] [place] [address] Dr. Bebeto Williamson Sodium [Moles/Vol] 141 mmol/L Normal 136-145 [facility] Comment on above: Performed By: #### C MP, LIPID #### [facility] [address] [place] [address] Dr. Bebeto Williamson Urea nitrogen [Mass/Vol] 11.0 mg/dL Normal 7.0-18.0 [facility] Comment on above: Performed By: #### C MP, LIPID #### [facility] [address] [place] [address] Dr. Bebeto Williamson Urea nitrogen/Creatinine [Mass ratio] 11.3 mg/mg Normal [facility] Comment on above: Performed By: #### C MP, LIPID #### [facility] [address] [place] [address] Dr. Bebeto Williamson URIC ACID SERUMon 11-21-2021 Urate [Mass/Vol] 7.3 mg/dL Critically high 2.6-6.0 [facility] Comment on above: Performed By: #### A 1C #### [facility] [address] [place] [address] Dr. Bebeto Williamson VITAMIN B12on 11-21-2021 Cobalamin (Vitamin B12) [Mass/Vol] 2123.0 pg/mL Critically high 193.0-986.0 [facility] Comment on above: Performed By: #### A 1C #### [facility] [address] [place] [address] Dr. Bebeto Williamson Physician Referralon 022 Physician Referral [phone] [id number] Normal [facility] KNEE RIGHT 1 OR 2 VWSon KNEE RIGHT 1 OR 2 VWS [facility] Department of Radiology [address] [place] [address] ======== Patient Name: MICHELLE BE : 1960 Sex: [...] Exam: KNEE RIGHT 1 OR 2 VWS ======== KNEE RIGHT 1 OR 2 VWS 02/08/2019 [...] Electronically signed by:Debra Del Cid. Transcribed by: [email or web address], User Resident: Electronically Signed by: DEBRA DEL CID @ 02/08/2019 11:16 AM Normal [facility] Comment on above: Order Comment: , Mabel ws (X-RAY, KNEE): Radiologic Protocol , Weight Bearing?: N , With or Without Brace/Cast/Collar: With , Views (X-RAY, KNEE): Radiologic Protocol , Weight Bearing?: N , With or Without Brace/Cast/Collar: With , , , Ordering Provider - AHSAN BINGHAM PA-C , KNEE RIGHT 1 OR 2 [facility] KNEE RIGHT 1 OR 2 S [facility] Department of Radiology [address] [place] [id number] ======== Patient Name: MICHELLE BE : 1960 Sex: F Age: Race: White Pt. Location: Patient Status: Ordered Date: 12/07/2018 10:20:00 AM Completed Date: 12/07/2018 10:20 AM Requesting Provider: AHSAN BINGHAM Attending Provider: Report Copy To: Signs & Symptoms: S82.001A Unsp fracture of right patella, init for clos fx I10 History: Shira Comments: , , , Ordering Provider - AHSAN BINGHAM PA-C , Exam: KNEE RIGHT 1 OR 2 VWS ======== KNEE RIGHT 1 OR 2 VWS 12/07/2018 [...] complications. Electronically signed by:Tomasz Stoll. Transcribed by: [email or web address], User Resident: Electronically Signed by: TOMASZ STOLL @ 12/07/2018 11:14 AM Normal [facility] Comment on above: Order Comment: , Mabel ws (X-RAY, KNEE): Radiologic Protocol , Weight Bearing?: N , With or Without Brace/Cast/Collar: With , Views (X-RAY, KNEE): Radiologic Protocol , Weight Bearing?: N , With or Without Brace/Cast/Collar: With , , , Ordering Provider - AHSAN BINGHAM PA-C , KNEE RIGHT 1 OR 2 VWSon 07-0 KNEE RIGHT 1 OR 2 VWS [facility] Department of Radiology [address] [place] [address] ======== Patient Name: MICHELLE BE : 1960 Sex: F Age: Race: White Pt. 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 Transcribed by: [email or web address], User Resident: Electronically Signed by: ANUP ELLISON @ 10/06/2018 02:48 PM Normal [facility] Comment on above: Order Comment: , Vie ws (X-RAY, KNEE): Radiologic Protocol , Weight Bearing?: N , With or Without Brace/Cast/Collar: With , Views (X-RAY, KNEE): Radiologic Protocol , Weight Bearing?: N , With or Without Brace/Cast/Collar: With , , , Ordering Provider - AHSAN BINGHAM PA-C , KNEE RIGHT 1 OR 2 [facility] 08-05 KNEE RIGHT 1 OR 2 [facility] Department of Radiology [address] [place] [phone] ======== Patient Name: MICHELLE BE : 1960 Sex: F Age: Race: White Pt. Location: Patient Status: Ordered Date: 08/26/2018 2:30:00 PM Completed Date: 08/26/2018 02:54 PM Requesting Provider: AHSAN BINGHAM Attending Provider: Report Copy To: Signs & Symptoms: S82.001A Unsp fracture of right patella, init for clos fx I10 History: Nunda Comments: , , , Ordering Provider - AHSAN BINGHAM PA-C , Exam: KNEE RIGHT 1 OR 2 [facility] ======== KNEE RIGHT 1 OR 2 S 08/26/2018 2:54 PM EDT SIGNS AND SYMPTOMS: [...] effusion Electronically signed by:Anup Ellison. Transcribed by: [email or web address], User Resident: Electronically Signed by: ANUP ELLISON @ 08/26/2018 04:56 PM Normal [facility] Comment on above: Order Comment: , Vie ws (X-RAY, KNEE): Radiologic Protocol , Weight Bearing?: N , With or Without Brace/Cast/Collar: With , Views (X-RAY, KNEE): Radiologic Protocol , Weight Bearing?: N , With or Without Brace/Cast/Collar: With , , , Ordering Provider - AHSAN BINGHAM PA-C , KNEE RIGHT 1 OR 2 [facility] 07-06 KNEE RIGHT 1 OR 2 [facility] Department of Radiology [address] [place] [phone] ======== Patient Name: MICHELLE BE : 1960 Sex: F Age: Race: White Pt. Location: 84 Patient Status: Ordered Date: 07/29/2018 2:10:00 PM Completed Date: 07/29/2018 02:12 PM Requesting Provider: AHSAN BINGHAM Attending Provider: Report Copy To: Signs & Symptoms: S82.001A Unsp fracture of right patella, init for clos fx I10 History: Shira Comments: , , , Ordering Provider - AHSAN BINGHAM PA-C , Exam: KNEE RIGHT 1 OR 2 VWS ======== KNEE RIGHT 1 OR 2 VWS 07/29/2018 [...] compartment Electronically signed by:Anup Ellison. Transcribed by: [email or web address], User Resident: Electronically Signed by: ANUP ELLISON @ 07/29/2018 03:41 PM Normal [facility] Comment on above: Order Comment: , Vie ws (X-RAY, KNEE): Radiologic Protocol , Weight Bearing?: N , With or Without Brace/Cast/Collar: With , Views (X-RAY, KNEE): Radiologic Protocol , Weight Bearing?: N , With or Without Brace/Cast/Collar: With , , , Ordering Provider - AHSAN BINGHAM PA-C , KNEE RIGHT 3 [facility] 9 KNEE RIGHT 3 [facility] Department of Radiology [address] [place] [phone] ======== Patient Name: MICHELLE BE : 1960 Sex: [...] BINGHAM PA-C , Exam: KNEE RIGHT 3 [facility] ======== KNEE RIGHT 3 VWS 07/15/2018 8:47 AM [...] knee Electronically signed by:Anup Ellison. Transcribed by: [email or web address], User Resident: Electronically Signed by: ANUP ELLISON @ 07/15/2018 03:31 PM Normal [facility] Comment on above: Order Comment: , Vie ws (X-RAY, KNEE): Radiologic Protocol , Weight Bearing?: N , With or Without Brace/Cast/Collar: With , Views (X-RAY, KNEE): Radiologic Protocol , Weight Bearing?: N , With or Without Brace/Cast/Collar: With , , , Ordering Provider - AHSAN BINGHAM PA-C , Operative Reporton 9 Operative Report MR#: [id number] [facility] Pt. Name: Michelle Be Room #: 0C [...] Duarte MD Date Trans: 07/03/2018 04:28 Monse/terry [id number] Normal [facility] *ANAEROBIC CULTUREon 019 *ANAEROBIC CULTURE Clinical Report: (D) Specimen/Source: SWAB/RT KNEE Collected: 07/02/2018 13:53 Status: Final Last Updated: 07/07/2018 08:02 CULT RES (Final) No Anaerobes Isolated 5 Days Normal [facility] Comment on above: Performed By: #### 3 0312 #### [address] *WOUND CULTUREon 07-02-2018 *WOUND CULTURE Clinical Report: (D) Specimen/Source: WOUND/INTRAOP SPEC Collected: 07/02/2018 13:53 Status: Final Last Updated: 07/07/2018 10:13 (1) #1 RT KNEE GRAM (Final) Rare Polys No Bacteria Seen CULT RES (Final) No Growth Day 5 Normal [facility] Comment on above: Order Comment: #1 RT KNEE Performed By: #### 3 0343 #### [address] KNEE RIGHT 1 OR 2 VWSon 06-05 KNEE RIGHT 1 OR 2 S [facility] Department of Radiology [address] [place] [phone] ======== Patient Name: MICHELLE BE : 1960 Sex: [...] Exam: KNEE RIGHT 1 OR 2 VWS ======== KNEE RIGHT 1 OR 2 VWS 07/02/2018 [...] Electronically signed by:Debra Del Cid. Transcribed by: [email or web address], User Resident: Electronically Signed by: DEBRA DEL CID @ 07/02/2018 02:03 PM Normal [facility] Comment on above: Order Comment: ORIF VS PERCUTANEOUS FIXATION RIGHT PATELLA POC GLUCOSE LABon 07-02-2018 Glucose [Mass/Vol] 108 mg/dL High 70-100 [facility] Comment on above: Performed By: #### 8 5499 #### [facility] [address] APTTon 06-30-2018 aPTT Coag (Bld) [Time] 30.6 s Normal 25.0-35.0 [facility] Comment on above: Result Comment: ALL [...] THIS PURPOSE. Performed By: #### 5 6101, [id number] #### [facility] [address] BASIC METABOLIC PANELon 06-05 Calcium [Mass/Vol] 9.7 mg/dL Normal 8.6-10.3 [facility] Comment on above: Performed By: #### 0 0071 #### [facility] 3000 [facility]. [address] Chloride [Moles/Vol] 102 mmol/L Normal 98-107 [facility] Comment on above: Performed By: #### 0 0071 #### [facility] [address] [place] [address], [facility] CO2 [Moles/Vol] 28 mmol/L Normal 21-31 [facility] Comment on above: Performed By: #### 0 0071 #### [facility] 3000 [facility]. [address] Creatinine [Mass/Vol] 1.20 mg/dL Normal 0.60-1.20 [facility] Comment on above: Performed By: #### 0 0071 #### [facility] [address] [place] [address], [facility] GFR/1.73 sq M predicted among blacks MDRD (S/P/Bld) [Vol rate/Area] 56 ml/min/1.73sq m Abnormal >60 [facility] Comment on above: Performed By: #### 0 0071 #### [facility] [address] [place] [address], [facility] GFR/1.73 sq M predicted among non-blacks MDRD (S/P/Bld) [Vol rate/Area] 47 ml/min/1.73sq m Abnormal >60 [facility] Comment on above: Performed By: #### 0 0071 #### [facility] [address] Glucose [Mass/Vol] 97 mg/dL Normal 70-100 [facility] Comment on above: Performed By: #### 0 0071 #### [facility] [address] Potassium [Moles/Vol] 4.1 mmol/L Normal 3.5-5.1 [facility] Comment on above: Performed By: #### 0 0071 #### [facility] [address] Sodium [Moles/Vol] 137 mmol/L Normal 136-145 [facility] Comment on above: Performed By: #### 0 1 #### [facility] [address] [place] [address], [facility] Urea nitrogen [Mass/Vol] 19 mg/dL Normal 7-25 [facility] Comment on above: Performed By: #### 0 0071 #### [facility] [address] CBC W/DIFFon 06-30-2018 ABS BASOPHILS 0.1 10*3/uL Normal 0.0-0.2 [facility] Comment on above: Performed By: #### 5 3 #### [facility] [address] [place] [address], [facility] ABS IMM GRANS 0.0 10*3/uL Normal 0.0-0.2 [facility] Comment on above: Performed By: #### 5 102 #### [facility] [address] [place] [id number], [facility] ABS NEUTROPHILS 6.4 10*3/uL Normal 1.6-7.6 [facility] Comment on above: Performed By: #### 5 3 #### [facility] [address] [place] [address], [facility] Basophils/100 WBC (Bld) 0.7 % Normal 0.0-1.0 [facility] Comment on above: Performed By: #### 5 0103 #### [facility] [address] [place] [address], [facility] Eosinophils (Bld) [#/Vol] 0.2 10*3/uL Normal 0.0-0.5 [facility] Comment on above: Performed By: #### 102 #### [facility] [address] [place] [address], [facility] Eosinophils/100 WBC (Bld) 1.5 % Normal 0.0-6.0 [facility] Comment on above: Performed By: #### 5 3 #### [facility] [address] [facility] [address] Erythrocyte distribution width (RBC) [Ratio] 14.4 % Normal 11.5-15.0 [facility] Comment on above: Performed By: #### 5 3 #### [facility] [address] [facility] [place] [address], [facility] Hematocrit (Bld) [Volume fraction] 40.6 % Normal 36.0-45.0 [facility] Comment on above: Performed By: #### 5 3 #### [facility] [address] [place] [address], [facility] Hemoglobin (Bld) [Mass/Vol] 13.3 g/dL Normal 12.0-15.0 [facility] Comment on above: Performed By: #### 5 3 #### [facility] [address] [place] [address], [facility] IMMATURE GRANS 0.4 % Normal 0.0-1.0 [facility] Comment on above: Performed By: #### 102 #### [facility] [address] [place] [address], [facility] Lymphocytes (Bld) [#/Vol] 2.6 10*3/uL Normal 1.2-4.0 [facility] Comment on above: Performed By: #### 102 #### [facility] [address] Lymphocytes/100 WBC (Bld) 26.5 % Normal 20.0-45.0 [facility] Comment on above: Performed By: #### 102 #### [facility] [address] MCH (RBC) [Entitic mass] 27.4 pg Normal 27.0-33.0 [facility] Comment on above: Performed By: #### 102 #### [facility] [address] MCHC (RBC) [Mass/Vol] 32.8 g/dL Normal 32.0-35.0 [facility] Comment on above: Performed By: #### 102 #### [facility] [address] MCV (RBC) [Entitic vol] 83.5 fL Normal 82.0-98.0 [facility] Comment on above: Performed By: #### 102 #### [facility] [address] [place] [address], [facility] Monocytes (Bld) [#/Vol] 0.5 10*3/uL Normal 0.1-1.0 [facility] Comment on above: Performed By: #### 102 #### [facility] [address] [place] [address], [facility] MONOS 5.0 % Normal 5.0-12.0 [facility] Comment on above: Performed By: #### 5 0103 #### [facility] [address] [place] [address], [facility] Neutrophils/100 WBC (Bld) 65.9 % Normal 40.0-72.0 [facility] Comment on above: Performed By: #### 5 0103 #### [facility] 3000 [facility] [place] [address], [facility] Nucleated RBC/100 WBC (Bld) [Ratio] 0 % Normal 0-0 [facility] Comment on above: Performed By: #### 5 0103 #### [facility] 3000 [facility] [place] [place] [address], [facility] PLAT CNT 290 10*3/uL Normal 150-400 [facility] Comment on above: Performed By: #### 5 0103 #### [facility] [address] [place] [address], [facility] RBC (Bld) [#/Vol] 4.86 10*6/uL Normal 3.80-5.00 [facility] Comment on above: Performed By: #### 5 0103 #### [facility] 3000 [facility] [place] [address], [facility] WBC (Bld) [#/Vol] 9.68 10*3/uL Normal 4.00-10.60 [facility] Comment on above: Performed By: #### 5 0103 #### [facility] [address] [place] [address], [facility] KNEE RIGHT 1 OR 2 VWSon - KNEE RIGHT 1 OR 2 VWS [facility] Department of Radiology [address] [place] [id number] ======== Patient Name: MICHELLE BE : 1960 Sex: [...] Exam: KNEE RIGHT 1 OR 2 VWS ======== KNEE RIGHT 1 OR 2 VWS 06/30/2018 [...] Electronically signed by:Debra Del Cid. Transcribed by: [email or web address], User Resident: Electronically Signed by: DEBRA DEL CID @ 06/30/2018 11:52 AM Normal [facility] Comment on above: Order Comment: , Rossie ws (X-RAY, KNEE): Radiologic Protocol , Weight Bearing?: N , With or Without Brace/Cast/Collar: With , Views (X-RAY, KNEE): Radiologic Protocol , Weight Bearing?: N , With or Without Brace/Cast/Collar: With , , , Ordering Provider - AHSAN BINGHAM PA-C , PROTHROMBIN TIMEon 9 INR Coag (PPP) [Relative time] 0.98 {INR} Normal 0.91-1.16 [facility] Comment on above: Result Comment: ACCC P RECOMMENDED INR FOR WARFARIN THERAPY --------- ------- CONDITION INR PROPHYLAXIS OF VENOUS THROMBOSIS 2-3 (HIGH-RISK SURGERY) TREATMENT OF VENOUS THROMBOSIS 2-3 TREATMENT OF PULMONARY EMBOLISM 2-3 PREVENTION OF SYSTEMIC EMBOLISM: 2-3 ACUTE MYOCARDIAL INFARCTION TISSUE HEART VALVES VALVULAR HEART DISEASE ATRIAL FIBRILLATION RECURRENT SYSTEMIC EMBOLISM MECHANICAL HEART VALVE 2.5-3.5 FROM: ORAL ANTICOAGULANTS. MECHANISM OF ACTION, CLINICAL EFFECTIVENESS, AND OPTIMAL THERAPEUTIC RANGE. CHEST 1995;108:231S-246S. Performed By: #### 5 6101, [id number] #### [facility] 3000 [facility] [place] [address], [facility] PT Coag (PPP) [Time] 13.0 s Normal 12.3-14.8 [facility] Comment on above: Result Comment: ALL RESULTS MUST BE INTERPRETED WITH RESPECT TO BLOOD DRAWING ARTIFACT OR DILUTION ERROR OF ANTICOAGULANT AT THE TIME OF SAMPLING. Performed By: #### 5 6101, [address]3613 #### [facility] [address] [place] [address], [facility] KNEE RIGHT 3 VWSon 9 KNEE RIGHT 3 [facility] Department of Radiology [address] [place] [phone] ======== Patient Name: MICHELLE BE : 1960 Sex: F Age: Race: White Pt. Location: Patient Status: O Ordered Date: 06/15/2018 1:35:00 PM Completed Date: 06/15/2018 01:34 PM Requesting Provider: AMPARO ZHANG Attending Provider: AMPARO ZHANG Report Copy To: ADELAIDA CARRION Signs & Symptoms: M17.11 Unilateral primary osteoarthritis, right knee I10 History: Nunda Comments: , Weight Bearing?: Y , Weight Bearing?: Y , , , Ordering Provider - AMPARO ZHANG PA-C , Exam: KNEE RIGHT 3 VWS ======== KNEE RIGHT 3 VWS 06/15/2018 1:34 PM EDT SIGNS AND SYMPTOMS: M17.11 Unilateral primary osteoarthritis, right knee I10 TECHNOLOGIST COMMENTS: Patient states complaint of right knee pain QUESTION FOR THE RADIOLOGIST: , Weight Bearing?: Y , Weight Bearing?: Y , , , Ordering Mariela ZHANG PA-C , PROTOCOL: AP,Lateral and Tangential [...] effusion Electronically signed by:Anup Ellison. Transcribed by: [email or web address], User Resident: Electronically Signed by: ANUP ELLISON @ 06/15/2018 03:50 PM Normal [facility] Comment on above: Order Comment: , Isaiah ght Bearing?: Y , Weight Bearing?: Y , , , Ordering Mariela ZHANG PA-C , Vital Signs Date Time Vital Sign Value Performing Clinician Facility 03-23-2023 12:10-0500 Diastolic blood pressure 98 mm[Hg] Adelaida Carrion Work Phone: [facility] 03-23-2023 12:10-0500 Heart rate 76 /min Adelaida Carrion Work Phone: [facility] 03-23-2023 12:10-0500 Respiratory rate 18 /min Adelaida Carrion Work Phone: [facility] 03-23-2023 12:10-0500 SaO2% (BldA) [Mass fraction] 99 % Adelaida Carrion Work Phone: [facility] 03-23-2023 12:10-0500 Systolic blood pressure 162 mm[Hg] Adelaida Carrion Work Phone: [facility] 03-23-2023 10:53-0500 Body height 162.56 cm Adelaida Carrion Work Phone: [facility] 03-23-2023 10:53-0500 Body weight 125.64 kg Adelaida Carrion Work Phone: [facility] 12-19-2022 14:55-0400 Body height 162.56 cm Rosemary Vernonmond Other [facility] Other 12-19-2022 14:55-0400 Body mass index (BMI) [Ratio] 47.85 kg/m2 Rosemary Marita Other [facility] Other 12-19-2022 14:55-0400 Body temperature 97.8 [degF] Rosemary Vernonmond Other [facility] Other 12-19-2022 14:55-0400 Body weight 126.46 kg Rosemary Vernonmond Other [facility] Other 12-19-2022 14:55-0400 Respiratory rate 20 /min Rosemary Vernonmond Other [facility] Other 12-19-2022 14:55-0400 SaO2% (BldA) [Mass fraction] 95 % Rosemary Vernonmond Other [facility] Other 11-20-2022 13:12-0400 Body temperature 97.7 [degF] Adelaida Carrion Work Phone: [facility] 11-20-2022 13:12-0400 SaO2% (BldA) [Mass fraction] 96 % Adelaida Sousaholz Work Phone: [facility] 11-20-2022 07:44-0400 Diastolic blood pressure 90 mm[Hg] Adelaida Sousaholz Work Phone: [facility] 11-20-2022 07:44-0400 Heart rate 103 /min Adelaida Sousaholz Work Phone: [facility] 11-20-2022 07:44-0400 Systolic blood pressure 152 mm[Hg] Adelaida Sousaholz Work Phone: [facility] 11-19-2022 20:00-0400 Respiratory rate 18 /min Adelaida Sousaholz Work Phone: [facility] 11-18-2022 15:18-0400 Body height 162.56 cm Adelaida Iglesiasz Work Phone: [facility] 11-17-2022 09:00-0400 Body weight 122.92 kg Adelaida Sousaholz Work Phone: [facility] Encounters Encounter Date Encounter Type Care Provider Facility Start: 03-23-2023 End: 03-23-2023 ambulatory Jace Graham Facility:[facility] Start: 03-23-2023 End: 03-23-2023 Admission to same day surgery center Adelaida Carrion Work Phone: [facility] Work Phone: Start: 03-23-2023 End: 03-23-2023 ambulatory Adelaida Hemarquesrhonda Work Phone: [facility] Work Phone: Start: 03-11-2023 End: 03-11-2023 ambulatory KALLI INTERIANO Not Available Start: 02-20-2023 End: 02-20-2023 ambulatory ASHLEIGH JEREZ Not Available Start: 02-12-2023 End: 02-12-2023 ambulatory Jace Graham Other [facility] [employer] Other Start: 02-12-2023 Telephone encounter Jace CORADO G Clinical Transformation Specialist Start: 12-19-2022 End: 12-19-2022 ambulatory Rosemary Kirkland Other [facility] [employer] Other Start: 12-19-2022 Office outpatient ne w 10 minutes Rosemary Kirkland [facility] José Miguel Start: 11-17-2022 End: 11-20-2022 Evaluation and management of inpatient Adelaida J Yinghholz Facility:[facility] Start: 11-17-2022 End: 11-20-2022 Evaluation and management of inpatient Adelaida Aicmarquesholz Work Phone: [address] Work Phone: Start: 10-06-2022 ambulatory Eduardo Acevedo acility:[facility] Start: 09-04-2022 ambulatory ARIAN JOHNSON . Facili ty:H1 Start: 08-26-2022 ambulatory NARENDRANATH LAKSHMIPATHY . Facility:H1 Start: 08-08-2022 End: 08-09-2022 ambulatory FLORIST HELPER ADELAIDA EDWINGERONIMOZ Facility:H1 Start: 07-25-2022 End: 07-26-2022 ambulatory FLORIST HELPER ADELAIDA AICMarquesHOLZ Facility:H1 Start: 07-15-2022 End: 07-15-2022 ambulatory NARENDRANATH LAKSHMIPATHY . Facility:H1 Start: 07-11-2022 ambulatory NARENDRANATH LAKSHMIPATHY . Facility:H1 Start: 06-26-2022 End: 06-27-[address] FINA ZIMMER . Facility:[facility]1 Start: 06-11-2022 ambulatory FLORIST HELPER ADELAIDA EDWINHOLZ Facil ity:H1 Start: 05-21-2022 End: 06-11-2022 ambulatory FLORIST HELPER ADELAIDA AICMarquesHOLZ Facility:H1 Start: 05-08-2022 End: 05-09-2022 ambulatory FLORIST HELPER ADELAIDA AICMarquesHOLZ Facility:H1 Start: 04-28-2022 End: 04-28-2022 ambulatory LIVIER ADELAIDA YINGMarquesRHONDA Facility:H1 Start: 04-03-2022 End: 04-04-[address] FINA ZIMMER . Facility:H1 Start: 03-19-2022 End: 03-20-2022 ambulatory LIVIER WITT YINGMarquesGERONIMONena Facility:H1 Start: 02-20-2022 End: 02-20-2022 ambulatory GILMER PURA Facility:H1 Start: 01-10-2022 End: 02-12-2022 [facility] Start: 01-02-2022 End: 01-03-[address] FINA ZIMMER . Facility:[facility]1 Start: 01-01-2022 End: 01-02-2022 ambulatory BRIDGETTE Ca [facility] Facility:H1 Start: 12-16-2021 End: 12-16-2021 ambulatory LIVIER ADELAIDA SHEYLA Facility:H1 Start: 11-21-2021 End: 11-22-[address] DOCTOR BERGERON Facility:H1 Start: 10-03-2021 End: 10-04-[address] FINA ZIMMER . Facility:H1 Start: 09-19-[address] FINA ZIMMER . Faci lity:H1 Start: 09-12-2021 End: 09-12-2021 ambulatory LIVIER ADELAIDA SHEYLA Facility:H1 Start: 08-20-2021 End: 08-20-[address] FINA ZIMMER . Facility:H1 Start: 07-02-2018 End: 07-03-2018 Patient encounter procedure SUKI ESCALANTE Facility:[facility] Procedures Date Procedure Procedure Detail Performing Clinician Start: 03-23-2023 Screening colonoscopy Alee no Yingmarquesrhonda Work Phone: Start: 07-02-2018 ANESTH KNEE AREA SURGERY CHAPARRITA HENDRICKS Start: 07-02-2018 REMOVAL OF SUPPORT IMPLANT SUKI ESCALANTE Start: 07-02-2018 TREAT KNEECAP FRACTURE SUKI ESCALANTE Plan of Treatment Date Care Activity Detail Author Start: 03-23-2023 [facility] Start: 11-20-2022 [facility] Start: 11-18-2022 Referral to clinical limousine rental clerk [facility] Start: 11-17-2022 Hospital admission [facility] Start: 11-17-2022 [facility] Patient Education [facility] Work Phone: Patient referral [facility] Work Phone: [facility] Immunizations Immunization Date Immunization Notes Care Provider Parker stevens 05-28-2018 influenza, injectabl e, quadrivalent, preservative free Adelaida Carrion Work Phone: [facility] Payers Date Payer Category Payer Medicare [id number] 2022 Private Health Insurance [id number] 2022 Self-pay [id number] 2008 Unknown [id number] 1961 Unknown [id number] 2.16.8 40.1.240235.3.579.2.647 1961 Unknown [id number] 2.16.84 0.1.801342.3.579.2.593 1961 Unknown [id number] 2.16.84 0.1.274950.3.579.2.593 1961 Unknown [id number] 2.16.84 0.1.799465.3.579.2.593 1961 Unknown [id number] 2.16.84 0.1.510462.3.579.2.593 1961 Unknown [id number] 2.16.84 0.1.445167.3.579.2.593 1961 Unknown [id number] 2.16.84 0.1.026255.3.579.2.593 1961 Unknown [id number] 2.16.84 0.1.605402.3.579.2.593 1961 Unknown [id number] 2.16.84 0.1.232942.3.579.2.593 1961 Unknown [id number] 2.16.84 0.1.812035.3.579.2.593 1961 Unknown [id number] 2.16.84 0.1.537073.3.579.2.593 1961 Unknown [id number] 2.16.84 0.1.509031.3.579.2.593 1961 Unknown [id number] 2.16.84 0.1.044821.3.579.2.593 1961 Unknown [id number] 2.16.84 0.1.156331.3.579.2.593 1961 Unknown [id number] 2.16.84 0.1.363971.3.579.2.593 1961 Unknown [id number] 2.16.84 0.1.076299.3.579.2.593 1961 Unknown [id number] 2.16.84 0.1.921092.3.579.2.593 1961 Unknown [id number] 2.16.84 0.1.147417.3.579.2.593 1961 Unknown [id number] 2.16.84 0.1.300422.3.579.2.593 1961 Unknown [id number] 2.16.84 0.1.165234.3.579.2.593 1961 Unknown [id number] 2.16.84 0.1.676861.3.579.2.593 1961 Unknown [id number] 2.16.84 0.1.289407.3.579.2.593 1961 Unknown [id number] 2.16.84 0.1.321625.3.579.2.593 1961 Unknown [id number] 2.16.84 0.1.710459.3.579.2.593 1961 Unknown [id number] 2.16.84 0.1.797654.3.579.2.593 1961 Unknown [id number] 2.16.840 .1.131319.3.579.2.1259 1961 Unknown [id number] 2.16.840 .1.989806.3.579.2.1259 1959 Medicare [id number] 1959 Unknown [id number] Unknown [id number] 2.16.8 40.1.435602.3.579.2.531 Unknown [id number] 2.16.8 40.1.700716.3.579.2.531 Unknown [id number] 2.16.8 40.1.209188.3.579.2.531 Social History Date Type Detail Facility Start: 11-18-2022 End: 03-23-2023 Tobacco smoking status NHIS Ex-smoker (finding) [facility] Start: 1960 Sex Assigned At Female F [facility] Sex Assigned At Sex Assigned At Bir th [facility] Other Goals Date Patient Goal Desired Activity /State Functional Status Date Assessment Result Facility 11-20-2022 Functional status Patient at Baseline [facility] Work Phone: Mental Status Date Assessment Result Facility 11-20-2022 Cognitive function Cognitive Sta tus Patient is Progressing Toward Baseline [facility] Work Phone: Clinical Notes 10-03-2021 to 03-23-2023 Note Date & Type Note Facility 03-23-2023 Procedure note [facility] 12-19-2022 Evaluation note Encounter Date Diagnosis Assessment Notes Dec, Skin candidiasis (ICD-10 - B37.2) Drink plenty fluids, get plenty of rest. Continue home medications as prescribed. Take the Diflucan as prescribed until gone. Follow-up with your family physician if no improvement in 2 to 3 days [facility] Other 08-17-2023 Discharge summary Author Eduardo bautista [facility] November 20, 2022 6:38am Note Date/Time November 20, 2022 6: 38am [facility] [address] [place], [place] [address] Discharge Summary Signed Patient: Michelle Be MR#: [id number] : 1960 Acct:[id number] Age/Sex: 61 / F Adm Date: 3 Loc: Room: [address] [place] [address]: Gaudencio Monk MD Copies to: MD Adelaida Álvarez, POLITICAL ADVISORMaldonadoC~ Providers Date of Discharge: 11/20/22 Discharging Provider: [...] at that time.? [place] and was then diagnosed with bipolar disorder at [facility] in [place], where she still follows with a therapist.? Shereports that she has been with 7 therapists in the last 9 years and is currentlycompleting EMDR with her current therapist. Past hospitalizations: Her most recent hospitalization was 5 years ago [facility] in [place] for the same feeling she is experiencing [...] her , son and his girlfriend, and kareemon.? Reports a situation in which they are attempting to seek custody of the grandson from the mother of the child.? She reports not feeling safe at homewith herself but feels safe when her family is home. Employment: Patient has not worked since 2010 due to her fibromyalgia.? [facility]. Relationships: Reports having people who [...] self or stop treatment, but to call [employer], 911 or come to the nearest emergency room. 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 (insert date/time here) [...] signed by Eduardo Monk MD> 11/20/22 0638 [facility] Work Phone: 1(395) 272-875108-16-2023 Progress note Author Eduardo bautista [facility] November 19, 2022 6:25am Note Date/Time November 19, 2022 6: 25am [facility] [address] [place] [address] Psychiatry Progress Note Signed Patient: Michelle Be MR#: [id number] : 1960 Acct:[id number] Age/Sex: 61 / F Adm Date: 3 Loc: Room: [address] [place] [address] Type : ADM IN Attending Dr: Gaudencio Mnok MD Copies to: ~ Date of Service: [...] signed by Eduardo Monk MD> 11/19/22 0625 [facility] Work Phone: 1(225) 392-280308-15-2023 Progress note Author Eduardo bautista [facility] November 18, 2022 11:01am Note Date/Time November 18, 2022 10 :11am [facility] [address] [place] [address] Psychiatry Progress Note Signed Patient: Michelle Be MR#: [id number] : 1960 Acct:[id number] Age/Sex: 61 / F Adm Date: 3 Loc: 1S Room: 8F4676-6 Type : ADM IN Attending Dr: Gaudencio [...] by requesting a schedule 2 referring to [facility] for pain management specifically every 4-6 hours [...] time Documented By: Eduardo Monk MD 3 [id number] Signed By: <Electronically signed by Eduardo Monk MD> 11/18/22 1101 <Electronically signed by MD DA Rangel> 11/18/22 1011 [facility] Work Phone: 1(146) 174-655108-14-2023 History and physical note Author Eduardo bautista [facility] November 17, 2022 12:48pm Note Date/Time November 17, 2022 12 :48pm [facility] [address] [place] [address] Psychiatry H&P Signed Patient: Michelle Be MR#: [id number] : 1960 Acct:[id number] Age/Sex: 61 / F Adm Date: 3 Loc: Room: [address] [place] [address] Type: ADM IN Attending Dr: Gaudencio Monk MD Copies to: MD Adelaida Álvarez, POLITICAL ADVISOR-C~ Date of Service: 11/17/2022 HPI History of [...] at that time. [place] and was then diagnosed with bipolar disorder at [facility] in [place], where she still follows with a therapist. Shereports that she has been with 7 therapists in the last 9 years and is currentlycompleting EMDR with her current therapist. Past hospitalizations: Her most recent hospitalization was 5 years ago [facility] in [place] for the same feeling she is experiencing [...] her , son and his girlfriend, and jimenez. Reports a situation in which they are attempting to seek custody of the grandson from the mother of the child. She reports not feeling safe at homewith herself but feels safe when her family is home. 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 Relationships: Reports having people who [...] equal bilaterally. CN XII: Tongue protrusion midline [facility] Medical History (Updated 11/17/22 @ 10:42 [...] Meds Medications and Allergies Allergies levetiracetam [From Keppra] Allergy (Verified 11/17/22 02:16) Unknown Reaction milnacipran [...] <Electronically signed by Eduardo Monk MD> 11/17/22 2877 [facility] Work Phone: 1(138) 261-467503-23-2023 NoteCONSULTATION CONSULTATION DATE: 06/26/2022 To: Nurse Sheyla CHIEF COMPLAINT: Includes severe right lower back [...] L5-S1 facet joint injection under fluoroscopic guidance.[facility] [id number] NotePROCEDURE: XR SHOULDER RT 2V or > [...] authenticated by: KINGSLEY CLEMENTS Date: 2022-05-09 09:21[facility] [id number] NotePROCEDURE: XR WRIST LT MIN 3 V [...] authenticated by: KINGSLEY CLEMENTS Date: 2022-04-28 13:31[facility]12-29-2022 NoteCONSULTATION CONSULTATION DATE: 04/03/2022 HISTORY OF PRESENT [...] 4 mg q.h.s., Neurontin per her PCP, Requip and Ambien. She recently got her medical marijuana card, [...] her in three months, unless otherwise indicated.[facility] [id number] NoteCONSULTATION CONSULTATION DATE: 01/02/2022 This is a [...] prescription was sent by Dr. Macedo to [facility] in [place] for the compounded cream. She needs a [...] in three months' time unless otherwise indicated.[facility] [id number] NotePROCEDURE: XR ANKLE RT MIN 3 VIEWS, [...] Electronically authenticated by: KINGSLEY CLEMENTS Date: 2022-01-01 13:11[facility]09-28-2022 NotePROCEDURE: XR ANKLE RT MIN 3 VIEWS, [...] Electronically authenticated by: KINGSLEY CLEMENTS Date: 2022-01-01 13:11[facility]08-18-2022 NotePROCEDURE: XR FOOT RT MIN 3 VIEWS HISTORY: Pain in right foot , chronic COMPARISON: XR foot right 2020 FINDINGS: BONES:No fracture, dislocation, bone lesion. Small calcaneal degenerative enthesophytes. SOFT TISSUES:No visible soft tissue swelling. EFFUSION:None visible. OTHER: Negative. IMPRESSION: 1. No acute bone abnormality or significant degenerative joint disease. Electronically authenticated by: KINGSLEY CLEMENTS Date: 2021-11-21 16:13[facility]06-30-2022 NoteCONSULTATION CONSULTATION DATE: 10/03/2021 This is a [...] patient agrees with the plan of care. [facility] Signed and Approved by: ZELDA MCDANIEL . 10/10/2021 10:22:00[facility]* Diagnosis Onset Date Resolution Status Allergies acute Bipolar 2 disorder acute Hypertension acute Morbid obesity with BMI of 45.0-49.9, adult acute OSMANY (obstructive sleep apnea) acute Restless legs syndrome acute [facility] Work Phone: Evaluation noteNo InformationNort [email or web address] Other Evaluation noteNo assessment information available [facility] Work Phone: History and physical note Author Jace Graham [facility] March 23, 2023 11:21am Note Date/Time March 23, 2023 11:21am [facility] [address] [place] [address] Gastroenterology H&P Signed Patient: Michelle Be MR#: [id number] : 1960 Acct:[id number] Age/Sex: 62 / F Adm Date: 3 Loc: Room: Type: [facility] Attending Dr: Jace Graham MD Copies to: [...] By: <Electronically signed by Jace Graham MD> 03/23/231120 [facility] Work Phone: History general Narrative - [...] History see above surg Hospitalization History stroke 2018 [facility] Other Hospital Discharge instructions Additional Instructions Regular Diet No Activity [facility]ions[facility] Work Phone: Hospital Discharge instructions Additional [...] years. -Follow up with PCP. -Office number [phone].[facility] Work Phone: Summary Purpose Family History No [...] section and content) DATE CREATED AUTHOR 02/18/2019 [facility] DATE CREATED AUTHOR AUTHOR'S ORGANIZ ATION 11/15/2021 [facility] DATE CREATED AUTHOR AUTHOR'S ORGANIZ ATION 08/16/2022 [facility] DATE CREATED AUTHOR AUTHOR'S ORGANIZ ATION 03/13/2023 [facility] EPIC DATE CREATED AUTHOR AUTHOR'S ORGANIZ ATION 03/23/2023 [facility] Care Teams (unrecognized sec tion and content) Team Status: Active Member Role Status Dates Adelaida Carrion Primary Care Provider Active Team Status: Inactive Member Role Status Dates Adelaida Carrion Primary Care Provider Active Gaudencio Monk MD Admit Provider, Attending Pr ovider Active Andreina Vieira , RN Other Provider Active Camilla Pina , RN Other Provider Active Ruchi Hurtado , RN Other Provider Active Lisa Crooks , RN Other Provider Active Tash Mejias , RN Other Provider Active Elzbieta Kim , RN Other Provider Active Walker Pringle MD Other Provider Active Adelaida Marsh APRN Other Provider Active Jessica Murillo , Other Provider Active Obdulio Bragg MD Other Provider Active Joon Cristina , Other Provider Active Torin Robert MD Other [...] Active Raymond Strong MD Other Provider Active AMRIT Cain Other Provider Active Severo Yancey MD Other Provider Active Rao Webber MD Other Provider Active Yuan Shi MD Other Provider Active Delroy Ramirez MD Other Provider Active Berta Comer , DO Other Provider Active Negrito Ruiz , DO Other Provider Active Lacho Singh , DO Other Provider Active Rachana Hobson , CARTON MAKING MACHINE OPERATOR Other Provider Active Rob Lake , DO Other Provider Active Jeff Alvarez MD Other Provider Active Urmila Rinaldi , CARTON MAKING MACHINE OPERATOR Other Provider Active Bina Mayberry , CARTON MAKING MACHINE OPERATOR Other Provider Active Mir Bradford MD Other Provider Active Te Da Silva MD Other Provider Active Debra Landaverde RN Other Provider Active Team Status: Inactive Member [...] BE BASED ON THE PRIMARY CLINICAL RECORDS. [employer] provides no warranty or guarantee of the accuracy or completeness of information in this document.
== END 2023-03-25 15:01 | disposition home or self-care (01) ==
LOC: RAD 15:01
PROVIDERS: PCP Nurse Practitioner; Visit Provider Nurse Practitioner
DX: M79.672 Pain in left foot (principal)
CPT/HCPCS: 73630

== ENCOUNTER 2023-04-09 12:49 | Outpatient (OUT) | payer MEDICARE, SELFPAY ==
--- NOTE | 2023-04-09 13:14 | PM.CN ---
Consult Note: HPI Data of Consult Patient: known to practice within the last 3 years Requesting Physician: Bhakti Culp NP Primary Care Provider: Adelaida Carrion Consult Narrative Reason for consult: f/u Narrative: Nasim Ingram a pleasant 62 year old female presents for evaluation and management of chronic low back pain. Today rating pain 1/10 ache. Patient reporting 75% ongoing pain relief and functional improvement on left low back at L4-5 L5-S1 facets from recent left L4-5 L5-S1 thermal RFA. Patient is currently following with Dr Díaz for right knee OA. cc:: CC: Bhakti Culp NP Review of Systems ROS Status of ROS 10 or more systems reviewed and unremarkable except as noted in history and below Musculoskeletal Reports: back pain and joint pain PFSH PFSH Medical History Acid reflux ?K21.9 - Gastro-esophageal reflux disease without esophagitis (ICD-10) Bipolar 1 disorder ?F31.9 - Bipolar disorder, unspecified (ICD-10) FH: bariatric surgery ?Z84.89 - Family history of other specified conditions (ICD-10) Fibromyalgia ?M79.7 - Fibromyalgia (ICD-10) Heart murmur ?R01.1 - Cardiac murmur, unspecified (ICD-10) High cholesterol ?E78.00 - Pure hypercholesterolemia, unspecified (ICD-10) Hypertension ?I10 - Essential (primary) hypertension (ICD-10) Low back pain ?M54.50 - Low back pain, unspecified (ICD-10) Neck pain ?M54.2 - Cervicalgia (ICD-10) Obesity ?E66.9 - Obesity, unspecified (ICD-10) Osteoarthritis ?M19.90 - Unspecified osteoarthritis, unspecified site (ICD-10) Sleep apnea ?G47.30 - Sleep apnea, unspecified (ICD-10) Upper back pain ?M54.9 - Dorsalgia, unspecified (ICD-10) Surgical History S/P dilatation and curettage ?Z98.890 - Other specified postprocedural states (ICD-10) H/O breast biopsy ?Z98.890 - Other specified postprocedural states (ICD-10) S/P ORIF (open reduction internal fixation) fracture ?Z98.890 - Other specified postprocedural states (ICD-10) ?Z87.81 - Personal history of (healed) traumatic fracture (ICD-10) Hx of laparoscopic gastric banding ?Z98.84 - Bariatric surgery status (ICD-10) History of tonsillectomy and adenoidectomy ?Z90.89 - Acquired absence of other organs (ICD-10) History of appendectomy ?Z90.49 - Acquired absence of other specified parts of digestive tract (ICD-10) History of hemilaminectomy ?Z98.890 - Other specified postprocedural states (ICD-10) History of cholecystectomy ?Z90.49 - Acquired absence of other specified parts of digestive tract (ICD-10) Previous section ?Z98.891 - History of uterine scar from previous surgery (ICD-10) Social History Smoking status: Former smoker Meds Home Medications and Allergies Home Medications Medication Instructions Recorded Confirmed Type amlodipine 10 mg tablet (Norvasc) 10 mg PO DAILY 09/10/22 03/10/23 History biotin 1 mg capsule 1 mg PO DAILY 09/10/22 03/10/23 History cariprazine 4.5 mg capsule 4.5 mg PO Q24H 09/10/22 03/10/23 History (Vraylar) cetirizine 10 mg tablet (24Hour 10 mg PO DAILY PRN allergy symptoms 09/10/22 03/10/23 History Allergy) clonazepam 1 mg tablet 1 mg 09/10/22 History duloxetine 60 mg capsule,delayed mg PO 09/10/22 History release ferrous sulfate 325 mg (65 mg 325 mg PO BID 09/10/22 03/10/23 History iron) tablet (FeroSul) gabapentin 600 mg tablet 1,200 mg PO DAILY 09/10/22 03/10/23 History (Neurontin) gabapentin 600 mg tablet 600 mg PO DAILY 09/10/22 03/10/23 History (Neurontin) losartan 50 mg tablet (Cozaar) 50 mg PO DAILY 09/10/22 03/10/23 History magnesium 200 mg tablet 400 mg PO BID 09/10/22 03/10/23 History melatonin 12 mg tablet 12 mg PO .HS PRN sleep 09/10/22 03/10/23 History omeprazole 20 mg capsule,delayed 20 mg 09/10/22 History release ropinirole 4 mg tablet mg 09/10/22 History trazodone 150 mg tablet 150 mg 09/10/22 History zolpidem 10 mg tablet 10 mg 09/10/22 History olanzapine 5 mg tablet (Zyprexa) 5 mg PO DAILY PRN anxiety 01/06/23 03/10/23 History carvedilol 3.125 mg tablet (Coreg) 3.125 mg PO BID 02/10/23 03/10/23 History tizanidine 4 mg capsule 4 mg PO TID PRN muscle spasticity 02/18/23 03/10/23 History Allergies Allergy/AdvReac Type Severity Reaction Status Date / Time levetiracetam [From [facility]] Allergy Severe Verified 03/10/23 07:09 adhesive Allergy Intermediate Blister Verified 03/10/23 07:09 Penicillins Allergy Intermediate Verified 03/10/23 07:09 tetracycline Allergy Intermediate Verified 03/10/23 07:09 milnacipran [From [facility]] AdvReac Intermediate Agitated Verified 03/10/23 07:09 prochlorperazine AdvReac Intermediate Agitated Verified 03/10/23 07:09 [From Compazine] Exam Constitutional Documenting provider has reviewed patient's vital signs: yes (elevated BP, asymptomatic) Common normals: no apparent distress, oriented x3, healthy appearing, alert and well nourished General appearance: cooperative Nutritional appearance: obese HENMT Common normals: normocephalic, hearing grossly normal bilaterally and moist oral mucous membranes Head and scalp: normocephalic Eye Common normals: PERRL Pupil: PERRL Neck & C-Spine Common normals: full ROM General: normal visual inspection Chest Common normals: inspection of chest normal Respiratory Common normals: normal respiratory effort, no retractions and no use of accessory muscles Back & Pelvis Lumbar spine/lower back: lumbar ROM normal Other: negative facet loading Extremity Common normals: normal to inspection and full ROM Neuro Common normals: oriented x3, CN's II-XII intact bilaterally, moves all extremities, no focal motor deficits, no sensory deficits noted and deep tendon reflexes 2+ bilaterally Sensorium/orientation: alert Gait (neuro): normal gait Motor exam: strength 5/5 throughout and no movement abnormalities noted Psych Common normals: mental status grossly normal, thought process normal, cooperative, affect normal, speech normal and activity/motor behavior normal Speech: normal speech Thought process: normal thought process Assessment and Plan Assessment and Plan (1) Lumbar spondylosis: (2) Muscle spasm: Plan 75% pain relief and functional improvement ongoing continue tizanidine 4-8mg TID PRN pending right knee replacement with Dr Díaz f/u 6 months, sooner if needed
== END 2023-04-09 12:50 | disposition home or self-care (01) ==
LOC: PM 12:53
PROVIDERS: PCP Nurse Practitioner; Visit Provider Nurse Practitioner
DX: M47.816 Spondylosis without myelopathy or radiculopathy, lumbar region (principal); M62.838 Other muscle spasm
CPT/HCPCS: G0463

== ENCOUNTER 2023-05-19 07:42 | Outpatient (OUT) | payer MEDICARE, SELFPAY ==
--- OUTSIDE RECORDS SUMMARY | 2023-05-19 07:47 | XMS_ITS | CCD ---
Author Name Unknown Address [id number] [place] [address] Organization [facility] Care Team Providers Care Forming Machine Adjuster Name Role Phone HELADIO ESCALANTEIL Admitting Unavailable EBRAHEIM SUKI Attending Unavailable AICHHOLZ, ADELAIDA Referring Unavailable AICHHOLZ, ADELAIDA Primary Care Unavailable OK Procedure Practitioner Unavailab SUKI Jacob Surgeon Unavailable OK Procedure Practitioner Unavailab CHAPARRITA Goncalves Surgeon Unavailable BRIDGETTE MACEDO Admitting Unavailable BRIDGETTE MACEDO Attending Unavailable AICHHOLZ, SUPERVISOR FERTILIZER ADELAIDA Primary Care Unavailable ZIMMER ., DR FINA Iverson Admitting Unavailable ZIMMER ., DR FINA Iverson Attending Unavailable AICHHOLZ, SUPERVISOR FERTILIZER ADELAIDA Primary Care Unavailable MCDANIEL ., ZELDA Consulting Unavailable LAKSHMIPATHY ., NARENDRANATH Consulting Paula vailable LAKSHMIPATHY ., NARENDRANATH Admitting Paula vailable LAKSHMIPATHY ., NARENDRANATH Attending Paula vailable AICHHOLZ, SUPERVISOR FERTILIZER ADELAIDA Primary Care Unavailable LAKSHMIPATHY ., NARENDRANATH Consulting Paula vailable AICHHOLZ, SUPERVISOR FERTILIZER ADELAIDA Primary Care Unavailable MARKER ., DR CHAUDHRY Admitting Unavailable MARKER ., DR CHAUDHRY Attending Unavailable MARKER ., DR CHAUDHRY Consulting Unavailable AICHHOLZ, SUPERVISOR FERTILIZER ADELAIDA Admitting Unavailable AICHHOLZ, SUPERVISOR FERTILIZER ADELAIDA Attending Unavailable AICHHOLZ, SUPERVISOR FERTILIZER ADELAIDA Primary Care Unavailable ZIMMER ., DR FINA Iverson Admitting Unavailable ZIMMER ., DR FINA Iverson Attending Unavailable AICHHOLZ, SUPERVISOR FERTILIZER ADELAIDA Primary Care Unavailable MCDANIEL ., ZELDA Consulting Unavailable ZIMMER ., DR FINA Iverson Admitting Unavailable ZIMMER ., DR FINA Iverson Attending Unavailable AICHHOLZ, SUPERVISOR FERTILIZER ADELAIDA Primary Care Unavailable MCDANIEL ., ZELDA Consulting Unavailable AICHHOLZ, SUPERVISOR FERTILIZER ADELAIDA Admitting Unavailable AICHHOLZ, SUPERVISOR FERTILIZER ADELAIDA Attending Unavailable AICHHOLZ, SUPERVISOR FERTILIZER ADELAIDA Primary Care Unavailable AICHHOLZ, SUPERVISOR FERTILIZER ADELAIDA Consulting Unavailable AICHHOLZ, SUPERVISOR FERTILIZER ADELAIDA Admitting Unavailable AICHHOLZ, SUPERVISOR FERTILIZER ADELAIDA Attending Unavailable AICHHOLZ, SUPERVISOR FERTILIZER ADELAIDA Primary Care Unavailable AICHHOLZ, SUPERVISOR FERTILIZER ADELAIDA Consulting Unavailable MISC, DR COTE Admitting Unavailable MISC, DR COTE Attending Unavailable AICHHOLZ, SUPERVISOR FERTILIZER ADELAIDA Primary Care Unavailable AICHHOLZ, SUPERVISOR FERTILIZER ADELAIDA Consulting Unavailable MISC, DR COTE Consulting Unavailable STARR, DR KINGSLEY Atkins Consulting Unavailable ZIMMER ., DR FINA Iverson Admitting Unavailable ZIMMER ., DR FINA Iverson Attending Unavailable [facility], SUPERVISOR FERTILIZER ADELIADA Primary Care Unavailable MCDANIEL ., ZELDA Consulting Unavailable ZIMMER ., DR FINA Iverson Admitting Unavailable ZIMMER ., DR FINA Iverson Attending Unavailable [facility], SUPERVISOR FERTILIZER ADELAIDA Primary Care Unavailable ZIMMER ., DR FINA Iverson Consulting Unavailable OMID LAY Consulting Unavailable ZIMMER ., DR FINA Iverson Admitting Unavailable ZIMMER ., DR FINA Iverson Attending Unavailable AICHOLZ, SUPERVISOR FERTILIZER ADELAIDA Primary Care Unavailable MCDANIEL ., ZELDA Consulting Unavailable AICHOLZ, SUPERVISOR FERTILIZER ADELAIDA Primary Care Unavailable HALKER ., ARIAN Admitting Unavailable HALKER ., ARIAN Attending Unavailable LAKSHMIPATHY ., NARENDRANATH Consulting Paula vailable HALKER ., ARIAN Consulting Unavailable LAKSHMIPATHY ., NARENDRANATH Admitting Paula vailable LAKSHMIPATHY ., NARENDRANATH Attending Paula vailable AICHOLZ, SUPERVISOR FERTILIZER ADELAIDA Primary Care Unavailable LAKSHMIPATHY ., NARENDRANATH Consulting Paula vailable AICHHOLZ, SUPERVISOR FERTILIZER ADELAIDA Admitting Unavailable AICHHOLZ, SUPERVISOR FERTILIZER ADELAIDA Attending Unavailable AICHHOLZ, SUPERVISOR FERTILIZER ADELAIDA Primary Care Unavailable AICHHOLZ, SUPERVISOR FERTILIZER ADELAIDA Consulting Unavailable BRIDGETTE MACEDO Admitting Unavailable BRIDGETTE MACEDO Attending Unavailable AICHHOLZ, SUPERVISOR FERTILIZER ADELAIDA Primary Care Unavailable STARR, DR KINGSLEY Atkins Consulting Unavailable BRIDGETTE MACEDO Consulting Unavailable PURA, GILMER Admitting Unavailable GILMER NEVES Attending Unavailable GILMER NEVES Consulting Unavailable AICHHOLZ, SUPERVISOR FERTILIZER ADELAIDA Primary Care Unavailable AICHHOLZ, SUPERVISOR FERTILIZER ADELAIDA Primary Care Unavailable DEEJAY, DR WILLI Atkins Admitting Unavailable DEEJAY, DR WILLI Atkins Attending Unavailable DEEJAY, DR WILLI Atkins Consulting Unavailable AICHHOLZ, SUPERVISOR FERTILIZER ADELAIDA Primary Care Unavailable ALMAZ ., DANNY Admitting Unavailable ALMAZ ., DANNY Attending Unavailable ZIEBRJ, DR KINGSLEY Atkins Consulting Unavailable ALMAZ ., DANNY Consulting Unavailable LAKSHMIPATHY ., NARENDRANATH Admitting Paula vailable LAKSHMIPATHY ., NARENDRANATH Attending Paula vailable AICHHOLZ, SUPERVISOR FERTILIZER ADELAIDA Primary Care Unavailable AICHHOLZ, SUPERVISOR FERTILIZER ADELAIDA Admitting Unavailable AICHHOLZ, SUPERVISOR FERTILIZER ADELAIDA Attending Unavailable AICHHOLZ, SUPERVISOR FERTILIZER ADELAIDA Primary Care Unavailable AICHHOLZ, SUPERVISOR FERTILIZER ADELAIDA Admitting Unavailable AICHHOLZ, SUPERVISOR FERTILIZER ADELAIDA Attending Unavailable AICHHOLZ, SUPERVISOR FERTILIZER ADELAIDA Primary Care Unavailable AICHHOLZ, SUPERVISOR FERTILIZER ADELAIDA Consulting Unavailable ZIEBER, DR KINGSLEY Atkins Consulting Unavailable HALKER ., ARIAN Admitting Unavailable HALKER ., ARIAN Attending Unavailable AICHHOLZ, SUPERVISOR FERTILIZER ADELAIDA Primary Care Unavailable Aichholz, Adelaida J Primary Care Provider [phone] MD Gaudencio Monk Admit Provider [phone] MD Gaudencio Monk Attending Provider JOHANN Vieira Other Provider Unavailable JOHANN Pina Other Provider Unavailable JOHANN Hurtado Other Provider Unavailable JOHANN Crooks Other Provider Unavailable JOHANN Mejias Other Provider Unavailable JOHANN Kim Other Provider Unavailable MD Walker Pringle Other Provider ROSS Marsh Other Provider DO Jessica Murillo Other Provider [phone] MD Obdulio Bragg Other Provider DO Joon Crisitna Other Provider MD Torin Robert Other Provider [phone] MD Dawn Barrera Other Provider Karlene ANP-BC Mari Other Provider MD Sofi Almanzar Other Provider [phone] MD Sharad Gallegos Other Provider MD Aby Cain Other Provider MD Hillary Carrera Other Provider DO Julio César Mckeon Other Provider MD Valentine Mak Other Provider MD Raymond Strong Other Provider AMRIT Le Other Provider MD Severo Yancey Other Provider MD Rao Webber Other Provider MD Yuan Shi Other Provider MD Delroy Ramirez Other Provider DO Berta Comer Other Provider DO Negrito Ruiz Other Provider DO Lacho Singh Other Provider ROSS Hobson Other Provider DO Rob Lake Other Provider [phone] MD Sae Alvarezayquentin M Other Provider ROSS Rinaldi Other Provider ROSS Mayberry Other Provider [phone] MD Mir Bradford Other Provider MD Te Da Silva Other Provider JOHANN Landaverde Other Provider Unavailable Rosemary Kirkland Unavailable Jace Graham Unavailable Adelaida Carrion Primary Care Provider MD Jace Graham Attending Provider ASHLEIGH JEREZ Attending Unavailable JR. HARRY GEORGE C Attending UnavailADELAIDA Thakkar Attending Unavailable Jace Graham Admitting Unavailable Jace Graham Attending Unavailable Merryholnena, Adelaida J Primary Care Unavailable Nakul Monkan Attending Unavailab le Aleshia, Eduardo Admitting Unavailab le Sheyla, Adelaida J Primary Care Unavailable Aichholnena, Adelaida J Primary Care Unavailable Aleshia, Eduardo Admitting Unavailab Andreina Chan Consulting Unavailable Aleshia, Eduardo Attending Unavailab Camilla Bahena Consulting Unavailable Ruchi [...] Rinaldi Consulting Unavailable Bina Mayberry Consulting Unavailable Mir Bradford Consulting Unavailable Te Da Silva Consulting Unavailable Debra Landaverde Consulting Unavailable Sheyla CREDIT REVIEW ANALYST, Adelaida Unavailable José Luis Roberts MD Primary Care Provider [phone] Allergies Allergy Classification Reported Allergen(s) Allergy Type Date of Onset Reaction(s) Facility (7 sources) Adhesive Tape; Translations: [ADHESIVE TAPE] Propensity to adverse reactions (disorder) 04-06-19 14 rash [facility] Repository (3 sources) levETIRAcetam; Translations: [KEPPRA] Drug Allergy 07-02-19 19 [facility] (3 sources) milnacipran; Translations: [SAVELLA] Drug Allergy 03-14-20 13 [facility] (1 source) Penicillin; Translations: [PENICILLIN] Drug Allergy 01-16-20 18 [facility] (5 sources) Prochlorperazin e; Translations: [COMPAZINE] Drug Allergy 03-14-20 13 agitation [facility] (11 sources) Tetracycline; Translations: [TETRACYCLINE] Drug Allergy 04-06-19 13 Hives, Unknown [facility] (4 sources) Penicillins Drug allergy (disorder) 04-06-19 13 Unknown Reaction [facility] Repository (8 sources) levETIRAcetam; Translations: [levetiracetam] Drug Allergy 12-13-19 22 Hallucinations , Other [facility] (8 sources) milnacipran; Translations: [milnacipran] Drug Allergy 12-13-19 22 hives, Hallucinations , Other, Unknown [facility] (6 sources) Prochlorperazin e; Translations: [prochlorperazi ne] Drug Allergy 12-13-19 22 Unknown, [facility] (2 sources) Penicillin G Drug Allergy as a child [facility] Other (2 sources) Tetracaine Drug Allergy Unknown [facility] Other (1 source) Penicillin Drug Allergy 12-20-19 23 [facility] (1 source) Penicillins Drug allergy (disorder) 03-23-20 23 [facility] (1 source) Tetracaine Drug Allergy 12-20-19 23 [facility] (3 sources) Penicillins Drug Intolerance 12-13-19 Anaphylaxis [facility] (3 sources) Other Propensity to adverse reactions 12-13-19 22 Other [facility] (3 sources) Wound Dressing Adhesive Drug Allergy 09-20-19 Rash, Unknown [facility] Medications Current Medications Medication Drug Class(es) Dates Sig (Normalized) Sig (Original) amLODIPine 10 mg oral tablet (7 sources) Dihydropyridine Calcium Channel Jim Start: 11-17-2022 take 10 mg by mouth once daily Amlodipine Active 10 MG PO Daily November 16, 2022 11:00pm ascorbic acid 125 mg / iron carbonyl 65 mg oral tablet (3 sources) Vitamin C take 1 tablet by mouth in the morning Iron-Vitamin C 65-125 MG tablet Take 60 mg by mouth in the morning and 60 mg in the evening. 0 Active Bariatric Multivitamins/Iro n - (2 sources) Bariatric Multivitamins/Ir on - as directed Orally Active biotin 1 mg oral capsule (5 sources) biotin 1 MG capsule Biotin 0 Active take 1 tablet by mouth once lissett y Biotin 5000 MCG 1 tablet Orally Once [...] 16, 2022 11:00pm November 17, 2022 7:25pm Calcium Citrate / Vitamin D (3 sources) Calcium Citrate-Vitamin D (CITRACAL + D PO) Citracal + D 0 Active cariprazine 4.5 mg oral capsule (7 sources) Atypical Antipsychotic Start: take 1 capsule by mouth once daily Cariprazine (Vraylar) 4.5 mg capsule Active 4.5 MG PO Daily November 16, 2022 11:00pm carvedilol 3.125 mg oral tablet (3 sources) alpha-Adrenergic Jim, beta-Adrenergic Jim Start: End: 024 take 1 tablet by mouth in the morning carvedilol (Coreg) 3.125 MG tablet Indications: Essential (primary) hypertension (CMS/HCC) Take 1 tablet (3.125 mg) by mouth in the morning and 1 tablet (3.125 mg) before bedtime. 60 tablet 3 04/29/2023 05/29/2023 Active cetirizine hydrochloride 10 mg oral tablet (7 sources) Histamine-1 Receptor Antagonist Start: take 10 mg by mouth once daily Cetirizine Active 10 MG PO Daily November 16, 2022 11:00pm clonazePAM 1 mg oral tablet (9 sources) Benzodiazepine Start: take 1 mg by mouth twice daily Clonazepam Active 1 MG PO Twice daily November 16, 2022 11:00pm Start: 05-27-2018 End: 11-17-2022 take 2 mg by mouth every twelve hours Clonazepam Discontinued 2 MG PO Q12H May 27, 2018 12:00am November 17, 2022 12:45am DULoxetine 60 mg delayed release oral capsule (9 sources) Serotonin and Norepinephrine Reuptake Inhibitor Start: [...] DAY Active fluconazole 150 mg oral tablet (9 sources) Azole Antifungal Start: 05-18-2023 End: 05-18-2023 fluconazole (Diflucan) 150 MG tablet Indications: Yeast infection of the skin One pill every 3 days for 3 doses 3 tablet 1 05/18/2023 Active Start: 12-19-2022 take 1 tablet by kenyatta th every other day Diflucan 150 MG 1 tablet Orally once for 6 days Take 1 tablet every other day until gone. 15 Dec, 2022 Active Start: 05-27-2018 End: 05-28-2018 take 1 tablet by mouth every twelve hours Fluconazole (Diflucan) 150 mg tablet Discontinued 150 MG PO Q12H May 27, 2018 12:00am May 28, 2018 11:21am fluticasone propionate 0.05 mg/actuat metered dose nasal spray (7 sources) Corticosteroid Start: 11-17-2022 Fluticasone Pr opionate Active 2 SPRAY INTRANASAL Daily November 16, 2022 11:00pm fluticasone (Johnathan nase) 50 MCG/ACT nasal spray 2 sprays. 0 Active Flonase Active furosemide 20 mg oral tablet (3 sources) Loop Diuretic take 1 tablet by mouth in the morning furosemide (Lasix) 20 MG tablet Take 20 mg by mouth in the morning. 0 Active gabapentin 600 mg oral tablet (13 sources) Anti-epileptic Agent Start: 05-28-2018 End: 11-17-2022 take 1200 mg by mouth at bedtime Gabapentin Active 1200 MG PO Bedtime November 16, 2022 11:00pm Start: 05-27-2018 End: 11-17-2022 Gabapentin Active 600 MG PO 0900,1400 November 16, 2022 11:00pm take 2 tablets by mo uth at bedtime gabapentin (Neurontin) 600 MG tablet Take 600 mg by mouth in the morning. 1 tablet in the am, 1 in the afternoon and 2 at HS. . 0 Active ketoconazole 20 mg/ml topical cream (3 sources) Azole Antifungal ketoconazole (NIZOral) 2 % cream Apply 1 application topically in the morning. 0 Active losartan potassium 100 mg oral tablet (7 sources) Angiotensin 2 Receptor Jim Start: 3 take 100 mg by mouth once daily Losartan Active 100 MG PO Daily November 16, 2022 11:00pm Magnesium (5 sources) Magnesium 400 MG capsule magnesium 0 Active take 1 tablet by mouth once lissett y Magnesium 400 MG 1 tablet with a meal Orally Once a day Active melatonin 10 mg oral tablet (3 sources) Start: 03-23-2023 take 20 mg by mouth at bedtime Melatonin Active 20 MG PO Bedtime March 23, 2023 12:00am take 2 tablets by mo uth once daily at bedtime Melatonin 10 MG 2 TABLETS Orally QHS Active Melatonin 12 MG tablet dispersible (3 sources) Melatonin 12 MG tablet dispersible 1 (one) time each day at the same time. 0 Active Multiple Vitamins-Minerals (BARIATRIC MULTIVITAMINS/IRON PO) (3 sources) Multiple Vitamins-Minerals (BARIATRIC MULTIVITAMINS/IRON PO) Bariatric Multivitamins/Iron 0 Active Hivtthosfwma-Rvw-Zapu-Fa- Vit K (Bariatric Multivitamins) 45 mg iron- 800 mcg-120 mcg Capsule (2 sources) Start: 11-17-2022 take 1 capsule by mouth once daily Yghivqetxcgr-Yoi-Kqxp-Fa -Vit K (Bariatric Multivitamins) 45 mg iron- 800 mcg-120 mcg Capsule Active 1 CAP PO Daily November 16, 2022 11:00pm Start: 11-17-2022 take 1 capsule by mo ut once daily Luegbfqmcdre-Ldr-Tftd-Fa-Vit K (Bariatri c Multivitamins) 45 mg iron- 800 mcg-120 mcg Capsule Active 1 CAP PO Daily November 17, 2022 12:00am nystatin 100 unt/mg topical powder (3 sources) Polyene Antifungal nystatin (Myc ostatin) 802687 UNIT/GM powder Apply 1 application topically in the morning and 1 application before bedtime. 0 Active OLANZapine 5 mg oral tablet (5 sources) Atypical Antipsychotic Start: take 5 mg by mouth every six hours Olanzapine Active 5 MG PO Q6H 30 15 November 17, 2022 11:00pm take 1 tablet by kenyatta th every six hours as needed OLANZapine zydis (ZyPREXA) 5 MG disintegrating tablet Take 5 mg by mouth every 6 (six) hours if needed. 0 Active omeprazole 20 mg delayed release oral capsule (7 sources) Proton Pump Inhibitor Start: 11-17-2022 take 20 mg by mouth once daily Omeprazole Active 20 MG PO Daily November 16, 2022 11:00pm rOPINIRole 4 mg oral tablet (7 sources) Nonergot Dopamine Agonist Start: 11-17-2022 take 4 mg by mouth once daily Ropinirole Active 4 MG PO Daily November 16, 2022 11:00pm Start: 06-02-2022 take 1 tablet by kenyatta th every two hours in the evening rOPINIRole (Requip) 4 MG tablet Take 4 mg by mouth in the evening. Take 2 hours prior to bedtime. 0 06/02/2022 Active tiZANidine 4 mg oral tablet (7 sources) Central alpha-2 Adrenergic Agonist Start: 11-17-2022 Tizanidine Active 2 MG PO 09,1400 November 16, 2022 11:00pm Start: 11-17-2022 take 8 mg by mouth at bedtime Tizanidine Active 8 MG PO Bedtime November 16, 2022 11:00pm take 1 tablet by kenyatta th in the morning tiZANidine (Zanaflex) 4 MG tablet Take 4 mg by mouth in the morning. 0 Active traZODone hydrochloride 150 mg oral tablet (9 sources) Serotonin Reuptake Inhibitor Start: 11-17-2022 take 150 mg by mouth at bedtime Trazodone Active 150 MG PO Bedtime November 16, 2022 11:00pm Start: 05-27-2018 End: 11-17-2022 take 300 mg by mouth once daily Trazodone Discontinued 300 MG PO Daily May 27, 2018 12:00am November 17, 2022 12:49am zolpidem tartrate 10 mg oral tablet (7 sources) gamma-Aminobutyric Acid-ergic Agonist Start: 11-17-2022 take [...] Problem Classification Problem Date Documented Date Episodic/Chronic Abdominal hernia (3 sources) Hiatal hernia; Translations: [Diaphragmatic hernia without obstruction or gangrene] Onset: 05-18-19 24 05-18-2023 Episodic Acute cerebrovascular disease (3 sources) Cerebrovascular accident; Translations: [Cerebral infarction, unspecified] Onset: 04-06-19 18 05-18-2023 Chronic Anxiety disorders (8 sources) Post-traumatic stress disorder, unspecified; Translations: [Anxiety disorder, unspecified] Onset: 04-29-19 23 05-18-2023 Chronic Cardiac and circulatory congenital anomalies (3 sources) Cerebrovascular disease; Translations: [Other malformations of cerebral vessels] Onset: 05-18-19 24 05-18-2023 Chronic Conditions associated with dizziness or vertigo (6 sources) Benign paroxysmal positional vertigo; Translations: [Benign paroxysmal vertigo, unspecified ear] Onset: 05-18-19 24 05-18-2023 Episodic Deficiency and other anemia (3 sources) Anemia; Translations: [Anemia, unspecified] Onset: 05-18-19 24 05-18-2023 Episodic Diabetes mellitus without complication (2 sources) Diabetes mellitus; Translations: [Type 2 diabetes mellitus without complications] 05-31-2018 Chronic Diabetes mellitus without complication (6 sources) Prediabetes; Translations: [Prediabetes] Onset: 08-01-19 23 05-18-2023 Episodic Disorders of lipid metabolism (1 source) Pure hypercholesterolemia, unspecified; Translations: [PURE HYPERCHOLESTEROLEMIA UNSPEC] Onset: 07-17-19 Chronic Esophageal disorders (6 sources) Gastro-esophageal reflux disease without esophagitis; Translations: [Gastroesophageal reflux disease] Onset: 07-17-19 23 05-18-2023 Chronic Essential hypertension (14 sources) Essential (primary) hypertension; Translations: [Hypertensive disorder] Onset: 07-17-19 Chronic Gout and other crystal arthropathies (4 sources) Gout, unspecified; Translations: [Gouty arthritis of right foot] Onset: 11-23-19 22 05-18-2023 Chronic Heart valve disorders (3 sources) Heart murmur; Translations: [Cardiac murmur, unspecified] Onset: 05-18-19 24 05-18-2023 Episodic Hemorrhoids (3 sources) Hemorrhoids; Translations: [Unspecified hemorrhoids] Onset: 05-18-19 24 05-18-2023 Episodic Mood disorders (20 sources) Bipolar disorder, current episode depressed, severe, without psychotic features; Translations: [Unspecified mood [affective] disorder] Onset: 11-23-19 22 11-17-2022 Chronic Mycoses (5 sources) Candidiasis of skin and nail; Translations: [Candidiasis of skin] Onset: 05-18-19 Episodic Nutritional deficiencies (1 source) Iron deficiency; Translations: [IRON DEFICIENCY] Onset: 08-01-19 Episodic Open wounds of head; neck; and trunk (4 sources) Open wound of anterior abdominal wall ; Translations: [Unspecified open wound of abdominal wall, unspecified quadrant without penetration into peritoneal cavity, initial encounter] Onset: 05-18-19 24 05-18-2023 Episodic Osteoarthritis (4 sources) Primary osteoarthritis, right ankle and foot; Translations: [Osteoarthritis of knee] Onset: 10-03-19 18 03-25-2023 Chronic Osteoporosis (3 sources) Osteoporosis; Translations: [Age-related osteoporosis without current pathological fracture] Onset: 05-18-19 24 05-18-2023 Chronic Other and ill-defined heart disease (3 sources) Diastolic dysfunction; Translations: [Other ill-defined heart diseases] Onset: 05-18-19 24 05-18-2023 Chronic Other and unspecified benign neoplasm (3 sources) Polyp of colon; Translations: [Polyp of colon] Onset: 05-18-19 24 05-18-2023 Episodic Other connective tissue disease (1 source) Fibromyalgia; Translations: [FIBROMYALGIA] Onset: 07-17-19 Episodic Other connective tissue disease (4 sources) Radial styloid tenosynovitis [de Quervain]; Translations: [RADIAL STYLOID TENOSYNOVITIS] Onset: 06-12-19 Episodic Other connective tissue disease (2 sources) Weakness of face muscles; Translations: [Facial weakness] 11-18-2022 Episodic Other connective tissue disease (3 sources) Pain in left foot; Translations: [Pain in left foot] Onset: 03-25-20 23 03-25-2023 Episodic Other connective tissue disease (3 sources) Radial styloid tenosynovitis; Translations: [Radial styloid tenosynovitis [de Quervain]] Onset: 05-18-19 24 05-18-2023 Episodic Other connective tissue disease (3 sources) Fibromyalgia; Translations: [Fibromyalgia] Onset: 05-18-19 24 05-18-2023 Episodic Other diseases of bladder and urethra (5 sources) Overactive bladder; Translations: [Overactive bladder] Onset: 05-18-19 24 05-18-2023 Chronic Other gastrointestinal disorders (1 source) Bariatric surgery status; Translations: [BARIATRIC SURGERY STATUS] Onset: 08-01-19 Episodic Other gastrointestinal disorders (3 sources) History of bariatric surgical procedure; Translations: [Bariatric surgery status] Onset: 05-18-1905-18-2023 Episodic Other gastrointestinal disorders (3 sources) Dysphagia; Translations: [Dysphagia, unspecified] Onset: 05-18-19 24 05-18-2023 Episodic Other gastrointestinal disorders (3 sources) Constipation; Translations: [Constipation, unspecified] Onset: 05-18-19 24 05-18-2023 Episodic Other hereditary and degenerative nervous system conditions (5 sources) Restless legs; Translations: [Restless legs syndrome] Onset: 05-18-1911-18-2022 Chronic Other hereditary and degenerative nervous system conditions (2 sources) Restless legs syndrome; Translations: [Restless legs syndrome (RLS)] Onset: 11-18-1911-20-2022 Chronic Other nervous system disorders (2 sources) Other chronic pain; Translations: [OTHER CHRONIC PAIN] Onset: 06-30-19 Chronic Other nervous system disorders (4 sources) Chronic pain syndrome; Translations: [CHRONIC PAIN SYNDROME] Onset: 04-03-20 Chronic Other nervous system disorders (5 sources) Chronic pain syndrome; Translations: [Chronic pain syndrome] Onset: 05-18-19 24 05-18-2023 Chronic Other nervous system disorders (3 sources) Slurred speech; Translations: [Slurred speech] Onset: 05-18-19 24 05-18-2023 Episodic Other non-traumatic joint disorders (4 sources) Pain in right shoulder; Translations: [PAIN IN RIGHT SHOULDER] Onset: 05-21-19 Episodic Other non-traumatic joint disorders (6 sources) Pain in right knee; Translations: [Pain in joint, lower leg] Onset: 11-21-19 17 03-25-2023 Episodic Other non-traumatic joint disorders (4 sources) Hip pain; Translations: [Pain in left hip] Onset: 05-18-1905-18-2023 Episodic Other nutritional; endocrine; and metabolic disorders [...] index [BMI] 45.0-49.9, adult] Onset: 11-18-19 Chronic Other nutritional; endocrine; and metabolic disorders (5 sources) Morbid obesity; Translations: [Morbid (severe) obesity due to excess calories] Onset: 03-25-2003-25-2023 Chronic Other upper respiratory disease (3 sources) Allergic rhinitis; Translations: [Allergic rhinitis, unspecified] Onset: 05-18-1905-18-2023 Chronic Paralysis (3 sources) Right hemiparesis; Translations: [Hemiplegia, unspecified affecting right dominant side] Onset: 05-18-1905-18-2023 Chronic Residual codes; unclassified (1 source) Sleep apnea, unspecified; Translations: [SLEEP APNEA UNSPECIFIED] Onset: 07-17-19 Chronic Residual codes; unclassified (7 sources) Obstructive sleep apnea syndrome; Translations: [Obstructive sleep apnea (adult) (pediatric)] Onset: 05-18-1911-18-2022 Chronic Residual codes; unclassified (2 sources) Obstructive sleep apnea (adult) (pediatric); Translations: [Obstructive sleep apnea (adult)(pediatric)] Onset: 11-18-1911-20-2022 Chronic Residual codes; unclassified (5 sources) Edema of lower extremity; Translations: [Localized edema] Onset: 05-18-1905-18-2023 Episodic Screening and history of mental health and substance abuse codes (1 source) Personal history of nicotine dependence; Translations: [PERSONAL HISTORY OF NICOTINE DEPEND] Onset: 07-17-19 Episodic Spondylosis; intervertebral disc disorders; other back problems (20 sources) Spondylosis without myelopathy or radiculopathy, lumbosacral region; Translations: [Spondylosis without myelopathy or radiculopathy, lumbar region] Onset: 08-24-19 Chronic Substance-related disorders (5 sources) Tobacco dependence syndrome; Translations: [Nicotine dependence, unspecified, uncomplicated] Onset: 05-18-1905-18-2023 Chronic Unclassified (3 sources) LOW BACK PAIN, UNSPECIFIED; Translations: [LOW BACK PAIN, UNSPECIFIED] Onset: 06-30-19 Unclassified (1 source) Encounter for screening for malignant neoplasm of colon; Translations: [Encounter for screening for malignant neoplasm of colon] Onset: 03-23-20 Urinary tract infections (2 sources) Urinary tract [...] WITH SCISSORS INITIAL ENC] Onset: 02-21-2022 Episodic Fracture of lower limb (3 sources) Closed fracture of patella; Translations: [Unspecified fracture of unspecified patella, initial encounter for closed fracture] Onset: 02-04-2018 03-25-2023 Episodic Immunizations and screening for infectious disease (1 source) Encounter for immunization; Translations: [ENCOUNTER FOR IMMUNIZATION] Onset: 02-21-2022 Episodic Malaise and fatigue (5 sources) Asthenia; Translations: [Weakness] Onset: 05-18-2023 Resolved: 05-18-2023 05-31-2018 Episodic Mood disorders (3 sources) Mood disorders; Translations: [DEPRESSION UNSPECIFIED] Onset: 04-29-2022 05-18-2023 Nonmalignant breast conditions (3 sources) Hematoma of right breast; Translations: [Other specified disorders of breast] Onset: 05-18-2023 Resolved: 05-18-2023 05-18-2023 Episodic Open wounds of extremities (4 sources) Laceration without foreign body of left middle finger without damage to nail, initial encounter; Translations: [LAC W/O FB LT MF W/O DMG NAIL INIT] Onset: 02-20-2022 Episodic Other aftercare (1 source) Other terminal carman (current) drug therapy; Translations: [OTH MARBLEIZER CURRENT DRUG THERAPY] Onset: 04-29-2022 Episodic Other [...] ELBOW LEFT ELBOW] Onset: 12-18-2021 Episodic Other connective tissue disease (3 sources) Patellar tendonitis; Translations: [Patellar tendinitis, unspecified knee] Onset: 11-20-2016 03-25-2023 Episodic Other non-traumatic joint disorders (4 sources) Pain in left wrist; Translations: [PAIN IN LEFT WRIST] Onset: 04-28-2022 Episodic Other non-traumatic joint disorders (4 sources) Effusion, right ankle; Translations: [EFFUSION RIGHT ANKLE] Onset: 01-01-2022 Episodic Other non-traumatic joint disorders (3 sources) Pain in left elbow; Translations: [PAIN IN LEFT ELBOW] Onset: 12-16-2021 Episodic Other nutritional; endocrine; and metabolic disorders (3 sources) Excess panniculus of abdomen; Translations: [Localized adiposity] Onset: 03-25-2023 Resolved: 05-18-2023 05-18-2023 Chronic Other skin disorders (4 sources) Rash and [...] Translations: [LOW BACK PAIN, UNSPECIFIED] Onset: 06-26-2022 Viral infection (3 sources) Herpes zoster; Translations: [Zoster without complications] Onset: 05-18-2023 Resolved: 05-18-2023 05-18-2023 Episodic Results Test Name Value Interpretation Reference Range Facility Amphetamine Screen Ql (U)Ord ered By: Jace Graham on 03-23-2023 Amphetamines Ql (U) Negative Negative [facility] Barbiturates [Presence] in U rine by Screen methodOrdered By: Jace Graham on 03-23-2023 Barbiturates Screen Ql (U) Negative Negative [facility] Benzodiazepines Screen Ql (U )Ordered By: Jace Graham on 03-23-2023 Benzodiazepines Ql (U) Negative Negative [facility] Benzoylecgonine [Presence] i n Urine by Screen methodOrdered By: Jace Graham on 03-23-2023 Benzoylecgonine Screen Ql (U) Negative Negative [facility] Cannabinoids [Presence] in U rine by Screen methodOrdered By: Jace Graham on 03-23-2023 Cannabinoids Screen Ql (U) Negative Negative [facility] Comment on above: These are unconfirme d results and should not be used for legal purposes. Drug Cut-Off Concentration: AMPH 1000 ng/mL ELKIN 200 ng/mL ATIYA 200 ng/mL COCM 300 ng/mL OP 300 ng/mL PCP 25 ng/mL THC 20 ng/mL Drug Screen,Urineon 03-23-20 Amphetamine Screen,Urine Negative Normal Negative [facility] Comment on above: Performed By: #### U RDS #### [address] Barbiturate Screen,Urine Negative Normal Negative [facility] Comment on above: Performed By: #### U RDS #### [address] Benzodiazepines Screen,Urine Negative Normal Negative [facility] Comment on above: Performed By: #### U RDS #### [address] Cannabinoid Screen,Urine Negative Normal Negative [facility] Comment on above: Result Comment: Thes e are unconfirmed results and should not be used for legal purposes. Drug Cut-Off Concentration: AMPH 1000 ng/mL ELKIN 200 ng/mL ATIYA 200 ng/mL COCM 300 ng/mL OP 300 ng/mL PCP 25 ng/mL THC 20 ng/mL PERFORMED BY: [place] [address] PATHOLOGIST MAINTENANCE WELDER AN CURRY M.D. Performed By: #### U RDS #### [address] Cocaine Screen,Urine Negative Normal Negative [facility] Comment on above: Performed By: #### U RDS #### [address] Opiate Screen,Urine Negative Normal Negative [facility] Comment on above: Performed By: #### U RDS #### [address] Phencyclidine Screen,Urine Negative Normal Negative [facility] Comment on above: Performed By: #### U RDS #### [address] Opiates [Presence] in Urine by Screen methodOrdered By: Jace Graham on 03-23-2023 Opiates Screen Ql (U) Negative Negative [facility] Phencyclidine Screen Ql (U)O rdered By: Jace Graham on 03-23-2023 Phencyclidine Ql (U) Negative Negative [facility] Cholesterol [Mass/volume] in Serum or PlasmaOrdered By: Eduardo Monk on 11-18-2022 Cholesterol [Mass/Vol] 159 mg/dL 140-200 [facility] Comment on above: Chol less than 200 m g/dl low riskChol 201-239 mg/dl borderline riskChol 240 mg/dl and greater high risk Cholesterol in LDL Calc [Mas s/Vol]Ordered By: Eduardo Monk on 11-18-2022 Cholesterol in LDL [Mass/Vol] 84 mg/dL 0-100 [facility] Comment on above: LDL ATP III CLASSIFI CATIONLDL less than 100 mg/dL OptimalLDL 100-129 mg/dL Near or above optimalLDL 130-159 mg/dL Borderline highLDL 160-189 mg/dL HighLDL greater than 189 mg/dL Very high Cholesterol in VLDL Calc [Ma ss/Vol]Ordered By: Eduardo Monk on 11-18-2022 Cholesterol in VLDL [Mass/Vol] 28 mg/dL [facility] Lipid Panelon 11-18-2022 Cholesterol [Mass/Vol] 159 mg/dL Normal 140-200 [facility] Comment on above: Order Comment: teri barney to tomorrow morning Result Comment: Chol less than 200 mg/dl low risk Chol 201-239 mg/dl borderline risk Chol 240 mg/dl and greater high risk Performed By: #### L IPID #### [facility] [address] [place] [address] [place] Cholesterol in HDL [Mass/Vol] 46 mg/dL Normal 23-92 [facility] Comment on above: Order Comment: teri barney to tomorrow morning Result Comment: HDL CHOL ATP-III CLASSIFICATION Cardiovascular Risk HDL > or equal to 60 mg/dL LOW HDL < 40 mg/dL HIGH Performed By: #### L IPID #### [facility] [address] [place] [address] [place] Cholesterol.total/Chol esterol in HDL [Mass ratio] 3.5 {ratio} Normal <5.0 [facility] Comment on above: Order Comment: teri barney to tomorrow morning Result Comment: PERF ORMED BY: [facility] [address] [place] [address] PATHOLOGIST MAINTENANCE WELDER AN CURRY M.D. Performed By: #### L IPID #### [facility] [address] [place] [id number] [facility] LDL Cholesterol,Calculated 84 mg/dL Normal 0-100 [facility] Comment on above: Order Comment: teri barney to tomorrow morning Result Comment: LDL ATP III CLASSIFICATION LDL less than 100 mg/dL Optimal LDL 100-129 mg/dL Near or above optimal LDL 130-159 mg/dL Borderline high LDL 160-189 mg/dL High LDL greater than 189 mg/dL Very high Performed By: #### L IPID #### [facility] [address] Triglyceride w/Reflex 144 mg/dL Normal 0-149 [facility] Comment on above: Order Comment: teri barney to tomorrow morning Result Comment: TRIG ATP III CLASSIFICATION TRIG less than 150 mg/dL Normal TRIG 150-199 mg/dL Borderline high TRIG 200-500 mg/dL High TRIG greater than 500 mg/dL Very high Standard traceable to the Center for Disease Conrtrol and Prevention (CDC) test method. Performed By: #### L IPID #### [facility] [address] VLDL CHOLESTEROL 28 mg/dL Normal [facility] Comment on above: Order Comment: teri barney to tomorr morning Performed By: #### L IPID #### [facility] [address] Serum or plasma high density lipoprotein (HDL) cholesterol measurementOrdered By: Eduardo Monk on 11-18-2022 Cholesterol in HDL [Mass/Vol] 46 mg/dL 23-92 [facility] Comment on above: HDL CHOL ATP-III CLA SSIFICATION Cardiovascular RiskHDL > or equal to 60 mg/dL LOWHDL < 40 mg/dL HIGH Serum or plasma total choles terol/high density lipoprotein (HDL) cholesterol mass ratOrdered By: Eduardo Monk on 11-18-2022 Cholesterol.total/Chol esterol in HDL [Mass ratio] 3.5 {ratio} <5.0 [facility] Thyroid Stimulating Hormoneo n 11-18-2022 TSH Qn 2.13 m[IU]/L Normal 0.45-5.33 [facility] Comment on above: Performed By: #### T SH3, [id number] #### [facility] [address] [place] [id number] [facility] Thyrotropin [Units/volume] i n Serum or PlasmaOrdered By: Eduardo Monk on 11-18-2022 TSH Qn 2.13 m[IU]/L 0.45-5.33 [facility] Triglyceride [Mass/volume] i n Serum or PlasmaOrdered By: Eduardo Monk on 11-18-2022 Triglyceride [Mass/Vol] 144 mg/dL 0-149 [facility] Comment on above: TRIG ATP III CLASSIF ICATIONTRIG less than 150 mg/dL NormalTRIG 150-199 mg/dL Borderline highTRIG 200-500 mg/dL High TRIG greater than 500 mg/dL Very highStandard traceable to the Center for Disease Conrtrol and Prevention (CDC) test method. Vitamin D 25 Hydroxy Totalon 11-18-2022 Vitamin D 25 Hydroxy Total 50.4 ng/mL Normal 30-100 [facility] Comment on above: Result Comment: SKYLER MIN D STATUS 25(OH)VITAMIN D RANGE (ng/mL) Deficient <20 Insufficient 20 to <30 Sufficient 30 to 100 Reference: Bin MF,Lakshmi NC, Cristian SMART, et al. Evaluation,treatment, and prevention of vitamin D deficiency; an Endocrine Society clinical practice guideline. JCEM. 2010; 96(7):1911-30. PERFORMED BY: [place] [id number] PATHOLOGIST MAINTENANCE WELDER AN CURRY M.D. Performed By: #### T SH3, [id number] #### [facility] [address] [place] [id number] [facility] Vitamin D+Metabolites [Mass/ volume] in Serum or PlasmaOrdered By: Eduardo Monk on 11-18-2022 Vitamin D+Metabolites [Mass/Vol] 50.4 ng/mL 30-100 [facility] Comment on above: VITAMIN D STATUS 25( [place])VITAMIN D RANGE (ng/mL) Deficient <20 Insufficient 20 to <30Sufficient 30 to 100Reference: Bin MF,Lakshmi NC, Cristian SMART, et al. Evaluation,treatment, and prevention of vitamin D deficiency; an Endocrine Society clinical practice guideline. JCEM. 2010; 96(7):1911-30. CBC AUTO DIFFon 07-25-2022 BASO # 0.1 103/ul Normal 0.0-0.1 [facility] Comment on above: Performed By: #### A 1C #### [facility] [address] [place] [address] [address] Bebeto Alvarado Basophils/100 WBC (Bld) 0.6 % Normal 0.2-2.0 [facility] Comment on above: Performed By: #### A 1C #### [facility] [address] [place] [address] [address] Bebeto Alvarado EO # 0.2 103/ul Normal 0.0-0.7 [facility] Comment on above: Performed By: #### A 1C #### [facility] [address] [place] [address] [address] Bebeto Alvarado Eosinophils/100 WBC (Bld) 2.3 % Normal 0.9-7.0 [facility] Comment on above: Performed By: #### A 1C #### [facility] [address] [place] [address] [address] Bebeto Alvarado Erythrocyte distribution width (RBC) [Ratio] 13.8 % Normal 11.0-15.0 [facility] Comment on above: Performed By: #### A 1C #### [facility] [address] [place] [address] [address] Bebeto Alvarado Hematocrit (Bld) [Volume fraction] 41.2 % Normal 36.0-48.0 [facility] Comment on above: Performed By: #### A 1C #### [facility] [address] [place] [address] [address] Bebeto Alvarado Hemoglobin (Bld) [Mass/Vol] 13.2 g/dL Normal 12.0-16.0 [facility] Comment on above: Performed By: #### A 1C #### [facility] [address] [place] [address] Dr. Bebeto Alvarado IG # 0.03 10e3/ul Normal 0.00-0.03 [facility] Comment on above: Performed By: #### A 1C #### [facility] [address] [place] [address] Dr. Bebeto Alvarado IG % 0.4 % Normal 0.0-0.5 [facility] Comment on above: Performed By: #### A 1C #### [facility] [address] [place] [address] Dr. Bebeto Alvarado LYMPH # 2.1 103/ul Normal 1.2-3.8 [facility] Comment on above: Performed By: #### A 1C #### [facility] [address] [place] [address] Dr. Bebeto Alvarado Lymphocytes/100 WBC (Bld) 25.9 % Normal 20.5-60.0 [facility] Comment on above: Performed By: #### A 1C #### [facility] [address] [place] [address] Dr. Bebeto Alvarado MANUAL DIFF REQ NO Normal [facility] Comment on above: Performed By: #### A 1C #### [facility] [address] [place] [address] Dr. Bebeto Alvarado MCH (RBC) [Entitic mass] 28.0 pg Normal 26.7-34.0 [facility] Comment on above: Performed By: #### A 1C #### [facility] [address] [place] [address] Dr. Bebeto Alvarado MCHC (RBC) [Mass/Vol] 32.0 g/dL Normal 29.9-35.2 [facility] Comment on above: Performed By: #### A 1C #### [facility] [address] [place] [address] Dr. Bebeto Alvarado MCV (RBC) [Entitic vol] 87.5 fL Normal 81.0-99.0 [facility] Comment on above: Performed By: #### A 1C #### [facility] [address] [place] [address] Dr. Bebeto Alvarado MONO # 0.5 103/ul Normal 0.3-0.8 [facility] Comment on above: Performed By: #### A 1C #### [facility] [address] [place] [address] Dr. Bebeto Alvarado Monocytes/100 WBC (Bld) 6.6 % Normal 1.7-12.0 [facility] Comment on above: Performed By: #### A 1C #### [facility] [address] [place] [address] Dr. Bebeto Alvarado NEUT # 5.1 103/ul Normal 1.4-6.5 [facility] Comment on above: Performed By: #### A 1C #### [facility] [address] [place] [address] Dr. Bebeto Alvarado Neutrophils/100 WBC (Bld) 64.2 % Normal 43.0-75.0 [facility] Comment on above: Performed By: #### A 1C #### [facility] [address] [place] [address] Dr. Bebeto Alvarado Platelet mean volume (Bld) [Entitic vol] 11.2 fL Normal 9.5-13.5 [facility] Comment on above: Performed By: #### A 1C #### [facility] [address] [place] [address] Dr. Bebeto Alvarado PLT 252 103/ul Normal 150-450 [facility] Comment on above: Performed By: #### A 1C #### [facility] [address] [place] [address] Dr. Bebeto Alvarado RBC 4.71 106/ul Normal 4.20-5.40 [facility] Comment on above: Performed By: #### A 1C #### [facility] [address] [place] [address] Dr. Bebeto Alvarado WBC 8.0 103/ul Normal 4.0-11.0 [facility] Comment on above: Performed By: #### A 1C #### [facility] [address] [place] [address] Dr. Bebeto Alvarado GLYCOHEMOGLOBIN A1Con 2022 ADA RECOMMENDATION SEE BELOW Normal [facility] Comment on above: Result Comment: ADA RECOMMENDED LIMIT 4.0 - 6.0 ADA THERAPEUTIC TARGET < 7.0 ACTION SUGGESTED > 7.0 Performed By: #### A 1C #### [facility] [address] [place] [address] Dr. Bebeto Alvarado Glucose [Mass/Vol] 114 mg/dL Normal [facility] Comment on above: Performed By: #### A 1C #### [facility] [address] [place] [address] [address] Bebeto Alvarado HbA1c (Bld) [Mass fraction] 5.6 % Normal 4.5-6.2 [facility] Comment on above: Performed By: #### A 1C #### [facility] [address] [place] [address] Dr. Bebeto Alvarado IRONon 07-25-2022 Iron [Mass/Vol] 60.0 ug/dL Normal 50.0-170.0 [facility] Comment on above: Performed By: #### V ITB12, IRON #### [facility] [address] [place] [address] Dr. Bebeto Alvarado LIPID PROFILEon 07-25-2022 CHOL-HDL RATIO NORM SEE BELOW Normal [facility] Comment on above: Result Comment: 3.3 - 4.4 LOW RISK 4.4 - 7.1 AVERAGE RISK 7.1 - 11.0 MODERATE RISK >11.0 HIGH RISK Performed By: #### C MP, LIPID #### [facility] [address] [place] [address] Dr. Bebeto Alvarado Cholesterol [Mass/Vol] 144 mg/dL Normal <=200 [facility] Comment on above: Performed By: #### C MP, LIPID #### [facility] [address] [place] [address] [address] Bebeto Alvarado Cholesterol in HDL [Mass/Vol] 39 mg/dL Critically low 40-60 [facility] Comment on above: Performed By: #### C MP, LIPID #### [facility] [address] [place] [address] Dr. Bebeto Alvarado Cholesterol in LDL [Mass/Vol] 74.6 mg/dL Normal [facility] Comment on above: Performed By: #### C MP, LIPID #### [facility] [address] [address] [address] Bebeto Alvarado Cholesterol.total/Chol esterol in HDL [Mass ratio] 3.7 {ratio} Normal [facility] Comment on above: Performed By: #### C MP, LIPID #### [facility] [address] [place] [address] [address] Bebeto Alvarado HDL NORMAL > or = 60 mg/dl - LO W CARDIOVASCULAR RISK <40 mg/dl - HIGH CARDIOVASCULAR RISK Normal [facility] Comment on above: Performed By: #### C MP, LIPID #### [facility] [address] [place] [address] [address] Bebeto Alvarado LDL CALC NORMAL SEE BELOW Normal [facility] Comment on above: Result Comment: <100 mg/dl OPTIMAL 100 - 129 mg/dl NEAR OR ABOVE OPTIMAL 130 - 159 mg/dl BORDERLINE HIGH 160 - 189 mg/dl HIGH >190 mg/dl VERY HIGH Performed By: #### C MP, LIPID #### [facility] [address] [place] [address] [address] Bebeto Alvarado Triglyceride [Mass/Vol] 152 mg/dL Critically high <=150 [facility] Comment on above: Performed By: #### C MP, LIPID #### [facility] [address] [place] [address] [address] Bebeto Alvarado VLDL CALC 30.4 mg/dL Normal [facility] Comment on above: Performed By: #### C MP, LIPID #### [facility] [address] [address] [address] Bebeto Alvarado PROF 14(COMP METB)on 023 Albumin [Mass/Vol] 3.7 g/dL Normal 3.4-5.0 [facility] Comment on above: Performed By: #### C MP, LIPID #### [facility] [address] [address] [address] Bebeto Alvarado Albumin/Globulin [Mass ratio] 0.9 {ratio} Normal [facility] Comment on above: Performed By: #### C MP, LIPID #### [facility] [address] [address] [address] Bebeto Alvarado ALP [Catalytic activity/Vol] 90 U/L Normal 46-116 [facility] Comment on above: Performed By: #### C MP, LIPID #### [facility] [address] [address] [address] Bebeto Alvarado ALT [Catalytic activity/Vol] 38 U/L Normal 14-59 [facility] Comment on above: Performed By: #### C MP, LIPID #### [facility] [address] [address] [address] Bebeto Alvarado Anion gap [Moles/Vol] 12.1 mmol/L Normal [facility] Comment on above: Performed By: #### C MP, LIPID #### [facility] [address] [address] [address] Bebeto Alvarado AST [Catalytic activity/Vol] 26 U/L Normal 15-37 [facility] Comment on above: Performed By: #### C MP, LIPID #### [facility] [address] [address] [address] Bebeto Alvarado Bilirubin [Mass/Vol] 0.3 mg/dL Normal 0.2-1.0 [facility] Comment on above: Performed By: #### C MP, LIPID #### [facility] [address] [address] [address] Bebeto Alvarado Calcium [Mass/Vol] 9.3 mg/dL Normal 8.5-10.1 [facility] Comment on above: Performed By: #### C MP, LIPID #### [facility] [address] [address] [address] Bebeto Alvarado Chloride [Moles/Vol] 107 mmol/L Normal 98-107 [facility] Comment on above: Performed By: #### C MP, LIPID #### [facility] [address] [address] [address] Bebeto Alvarado CO2 [Moles/Vol] 27.9 mmol/L Normal 21.0-32.0 [facility] Comment on above: Performed By: #### C MP, LIPID #### [facility] [address] [address] [address] Bebeto Alvarado Creatinine [Mass/Vol] 0.95 mg/dL Normal 0.55-1.02 [facility] Comment on above: Performed By: #### C MP, LIPID #### [facility] [address] [address] [address] Bebeto Alvarado EGFR-AF [place] >60 Normal >=60 [facility] Comment on above: Performed By: #### C MP, LIPID #### [facility] [address] [address] [address] Bebeto Alvarado EGFR-NON AF [place] 60 mL/min/1.73m2 Normal >=60 [facility] Comment on above: Performed By: #### C MP, LIPID #### [facility] [address] [address] [address] Bebeto Alvarado Globulin (S) [Mass/Vol] 3.9 g/dL Normal [facility] Comment on above: Performed By: #### C MP, LIPID #### [facility] [address] [address] [address] Bebeto Alvarado Glucose [Mass/Vol] 108 mg/dL Critically high 74-106 T [facility] Comment on above: Performed By: #### C MP, LIPID #### [facility] [address] [address] [address] Bebeto Alvarado Potassium [Moles/Vol] 4.0 mmol/L Normal 3.5-5.1 [facility] Comment on above: Performed By: #### C MP, LIPID #### [facility] [address] [place] [address] [address] Bebeto Alvarado Protein [Mass/Vol] 7.6 g/dL Normal 6.4-8.2 [facility] Comment on above: Performed By: #### C MP, LIPID #### [facility] [address] [address] [address] Bebeto Alvarado Sodium [Moles/Vol] 143 mmol/L Normal 136-145 [facility] Comment on above: Performed By: #### C MP, LIPID #### [facility] [address] [place] [address] Dr. Bebeto Alvarado Urea nitrogen [Mass/Vol] 15.0 mg/dL Normal 7.0-18.0 [facility] Comment on above: Performed By: #### C MP, LIPID #### [facility] [address] [place] [address] Dr. Bebeto Alvarado Urea nitrogen/Creatinine [Mass ratio] 15.8 mg/mg Normal [facility] Comment on above: Performed By: #### C MP, LIPID #### [facility] [address] [place] [address] Dr. Bebeto Alvarado UA RANDOM W/MICROSCOPICon BACTERIA NONE SEEN Normal NONE SEEN [facility] Comment on above: Performed By: #### A 1C #### [facility] [address] [place] [address] Dr. Bebeto Alvarado Bilirubin Ql (U) Negative Normal NEGATIVE [facility] Comment on above: Performed By: #### A 1C #### [facility] [address] [place] [address] Dr. Bebeto Alvarado CAST NONE SEEN Normal NONE SEEN [facility] Comment on above: Performed By: #### A 1C #### [facility] [address] [place] [address] Dr. Bebeto Alvarado Clarity (U) CLEAR Normal CLEAR [facility] Comment on above: Performed By: #### A 1C #### [facility] [address] [place] [address] Dr. Bebeto Alvarado Color (U) YELLOW Normal YELLOW [facility] Comment on above: Performed By: #### A 1C #### [facility] [address] [place] [address] Dr. Bebeto Alvarado Crystals LM Nom (Urine sed) NONE SEEN Normal NONE SEEN [facility] Comment on above: Performed By: #### A 1C #### [facility] [address] [place] [address] Dr. Bebeto Alvarado Epithelial cells LM Ql (Urine sed) NONE SEEN Normal NONE SEEN /RARE [facility] Comment on above: Performed By: #### A 1C #### [facility] [address] [place] [address] Dr. Bebeto Alvarado Glucose Ql (U) Negative Normal NEGATIVE [facility] Comment on above: Performed By: #### A 1C #### [facility] [address] [place] [address] Dr. Bebeto Alvarado Hemoglobin Ql (U) Negative Normal NEGATIVE The [facility] Comment on above: Performed By: #### A 1C #### [facility] [address] [place] [address] Dr. Bebeto Alvarado Ketones Ql (U) Negative Normal NEGATIVE [facility] Comment on above: Performed By: #### A 1C #### [facility] [address] [place] [address] Dr. Bebeto Alvarado LEUKOCYTES Negative Normal NEGATIVE [facility] Comment on above: Performed By: #### A 1C #### [facility] [address] [place] [address] Dr. Bebeto Alvarado MUCOUS NONE SEEN Normal NONE SEEN [facility] Comment on above: Performed By: #### A 1C #### [facility] [address] [place] [address] Dr. Bebeto Alvarado Nitrite Ql (U) Negative Normal NEGATIVE [facility] Comment on above: Performed By: #### A 1C #### [facility] [address] [place] [address] Dr. Bebeto Alvarado pH (U) 5.5 [pH] Normal 5-9 [facility] Comment on above: Performed By: #### A 1C #### [facility] [address] [place] [address] Dr. Bebeto Alvarado RBC NONE SEEN Abnormal 0-2 [facility] Comment on above: Performed By: #### A 1C #### [facility] [address] [place] [address] Dr. Bebeto Alvarado SPEC GRAVITY 1.030 Abnormal 1.005-<=1.02 5 [facility] Comment on above: Performed By: #### A 1C #### [facility] [address] [place] [address] Dr. Bebeto Alvarado UA PROTEIN Negative Normal NEGATIVE/ TRACE [facility] Comment on above: Performed By: #### A 1C #### [facility] [address] [place] [address] Dr. Bebeto Alvarado Urobilinogen Qn (U) 0.2 {Katerin'U}/dL Normal 0.2 - 1. 0 [facility] Comment on above: Performed By: #### A 1C #### [facility] [address] [place] [address] Dr. Bebeto Alvarado WBC NONE SEEN Normal NONE SEEN [facility] Comment on above: Performed By: #### A 1C #### [facility] [address] [place] [address] Dr. Bebeto Alvarado VITAMIN B12on 07-25-2022 Cobalamin (Vitamin B12) [Mass/Vol] 1684.0 pg/mL Critically high 193.0-986.0 [facility] Comment on above: Performed By: #### V ITB12, IRON #### [facility] [address] [place] [address] Dr. Bebeto Alvarado PROF CHEM 8 (BAS METB)on Anion gap [Moles/Vol] 12.2 mmol/L Normal [facility] Comment on above: Performed By: #### B MP #### [facility] [address] [place] [address] Dr. Bebeto Alvarado Calcium [Mass/Vol] 8.9 mg/dL Normal 8.5-10.1 [facility] Comment on above: Performed By: #### B MP #### [facility] [address] [place] [address] Dr. Bebeto Alvarado Chloride [Moles/Vol] 105 mmol/L Normal 98-107 [facility] Comment on above: Performed By: #### B MP #### [facility] [address] [place] [address] Dr. Bebeto Alvarado CO2 [Moles/Vol] 29.6 mmol/L Normal 21.0-32.0 [facility] Comment on above: Performed By: #### B MP #### [facility] [address] [place] [address] Dr. Bebeto Alvarado Creatinine [Mass/Vol] 0.95 mg/dL Normal 0.55-1.02 [facility] Comment on above: Performed By: #### B MP #### [facility] [address] [address] [address] Bebeto Alvarado EGFR-AF [place] >60 Normal >=60 [facility] Comment on above: Performed By: #### B MP #### [facility] [address] [address] [address] Bebeto Alvarado EGFR-NON AF [place] 60 mL/min/1.73m2 Normal >=60 [facility] Comment on above: Performed By: #### B MP #### [facility] [address] [address] [address] Bebeto Alvarado Glucose [Mass/Vol] 101 mg/dL Normal 74-106 [facility] Comment on above: Performed By: #### B MP #### [facility] [address] [address] [address] Bebeto Alvarado Potassium [Moles/Vol] 3.8 mmol/L Normal 3.5-5.1 [facility] Comment on above: Performed By: #### B MP #### [facility] [address] [place] [address] Dr. Bebeto Alvarado Sodium [Moles/Vol] 143 mmol/L Normal 136-145 [facility] Comment on above: Performed By: #### B MP #### [facility] [address] [address] [address] Bebeto Alvarado Urea nitrogen [Mass/Vol] 16.0 mg/dL Normal 7.0-18.0 [facility] Comment on above: Performed By: #### B MP #### [facility] [address] [address] [address] Bebeto Alvarado Urea nitrogen/Creatinine [Mass ratio] 16.8 mg/mg Normal [facility] Comment on above: Performed By: #### B MP #### [facility] [address] [address] [address] Bebeto Alvarado CBC AUTO DIFFon 11-21-2021 BASO # 0.1 103/ul Normal 0.0-0.1 [facility] Comment on above: Performed By: #### A 1C #### [facility] [address] [place] [address] Dr. Bebeto Alvarado Basophils/100 WBC (Bld) 1.0 % Normal 0.2-2.0 [facility] Comment on above: Performed By: #### A 1C #### [facility] [address] [place] [address] Dr. Bebeto Alvarado EO # 0.2 103/ul Normal 0.0-0.7 [facility] Comment on above: Performed By: #### A 1C #### [facility] [address] [place] [address] Dr. Bebeto Alvarado Eosinophils/100 WBC (Bld) 3.3 % Normal 0.9-7.0 [facility] Comment on above: Performed By: #### A 1C #### [facility] [address] [place] [address] Dr. Bebeto Alvarado Erythrocyte distribution width (RBC) [Ratio] 13.8 % Normal 11.0-15.0 [facility] Comment on above: Performed By: #### A 1C #### [facility] [address] [place] [address] Dr. Bebeto Alvarado Hematocrit (Bld) [Volume fraction] 38.8 % Normal 36.0-48.0 [facility] Comment on above: Performed By: #### A 1C #### [facility] [address] [place] [address] Dr. Bebeto Alvarado Hemoglobin (Bld) [Mass/Vol] 12.5 g/dL Normal 12.0-16.0 [facility] Comment on above: Performed By: #### A 1C #### [facility] [address] [place] [address] Dr. Bebeto Alvarado IG # 0.02 10e3/ul Normal 0.00-0.03 [facility] Comment on above: Performed By: #### A 1C #### [facility] [address] [place] [address] Dr. Bebeto Alvarado IG % 0.3 % Normal 0.0-0.5 [facility] Comment on above: Performed By: #### A 1C #### [facility] [address] [place] [address] Dr. Bebeto Alvarado LYMPH # 1.9 103/ul Normal 1.2-3.8 [facility] Comment on above: Performed By: #### A 1C #### [facility] [address] [place] [address] Dr. Bebeto Alvarado Lymphocytes/100 WBC (Bld) 29.6 % Normal 20.5-60.0 [facility] Comment on above: Performed By: #### A 1C #### [facility] [address] [place] [address] Dr. Bebeto Alvarado MANUAL DIFF REQ NO Normal [facility] Comment on above: Performed By: #### A 1C #### [facility] [address] [place] [address] Dr. Bebeto Alvarado MCH (RBC) [Entitic mass] 28.0 pg Normal 26.7-34.0 [facility] Comment on above: Performed By: #### A 1C #### [facility] [address] [place] [address] Dr. Bebeto Alvarado MCHC (RBC) [Mass/Vol] 32.2 g/dL Normal 29.9-35.2 [facility] Comment on above: Performed By: #### A 1C #### [facility] [address] [place] [address] Dr. Bebeto Alvarado MCV (RBC) [Entitic vol] 86.8 fL Normal 81.0-99.0 [facility] Comment on above: Performed By: #### A 1C #### [facility] [address] [place] [address] Dr. Bebeto Alvarado MONO # 0.4 103/ul Normal 0.3-0.8 [facility] Comment on above: Performed By: #### A 1C #### [facility] [address] [place] [address] Dr. Bebeto Alvarado Monocytes/100 WBC (Bld) 5.7 % Normal 1.7-12.0 [facility] Comment on above: Performed By: #### A 1C #### [facility] [address] [address] [address] Bebeto Alvarado NEUT # 3.8 103/ul Normal 1.4-6.5 [facility] Comment on above: Performed By: #### A 1C #### [facility] [address] [address] [address] Bebeto Alvarado Neutrophils/100 WBC (Bld) 60.1 % Normal 43.0-75.0 [facility] Comment on above: Performed By: #### A 1C #### [facility] [address] [place] [address] Dr. Bebeto Alvarado Platelet mean volume (Bld) [Entitic vol] 11.0 fL Normal 9.5-13.5 [facility] Comment on above: Performed By: #### A 1C #### [facility] [address] [place] [address] Dr. Bebeto Alvarado PLT 264 103/ul Normal 150-450 [facility] Comment on above: Performed By: #### A 1C #### [facility] [address] [place] [address] Dr. Bebeto Alvarado RBC 4.47 106/ul Normal 4.20-5.40 [facility] Comment on above: Performed By: #### A 1C #### [facility] [address] [place] [address] Dr. Bebeto Alvarado WBC 6.3 103/ul Normal 4.0-11.0 [facility] Comment on above: Performed By: #### A 1C #### [facility] [address] [place] [address] Dr. Bebeto Alvarado GLYCOHEMOGLOBIN A1Con 2021 ADA RECOMMENDATION SEE BELOW Normal [facility] Comment on above: Result Comment: ADA RECOMMENDED LIMIT 4.0 - 6.0 ADA THERAPEUTIC TARGET < 7.0 ACTION SUGGESTED > 7.0 Performed By: #### A 1C #### [facility] [address] [place] [address] Dr. Bebeto Alvarado Glucose [Mass/Vol] 105 mg/dL Normal [facility] Comment on above: Performed By: #### A 1C #### [facility] [address] [address] [address] Bebeto Alvarado HbA1c (Bld) [Mass fraction] 5.3 % Normal 4.5-6.2 [facility] Comment on above: Performed By: #### A 1C #### [facility] [address] [address] [address] Bebeto Alvarado IRONon 11-21-2021 Iron [Mass/Vol] 59.0 ug/dL Normal 50.0-170.0 [facility] Comment on above: Performed By: #### A 1C #### [facility] [address] [address] [address] Bebeto Alvarado LIPID PROFILEon 11-21-2021 CHOL-HDL RATIO NORM SEE BELOW Normal [facility] Comment on above: Result Comment: 3.3 - 4.4 LOW RISK 4.4 - 7.1 AVERAGE RISK 7.1 - 11.0 MODERATE RISK >11.0 HIGH RISK Performed By: #### C MP, LIPID #### [facility] [address] [place] [address] Dr. Bebeto Alvarado Cholesterol [Mass/Vol] 139 mg/dL Normal <=200 [facility] Comment on above: Performed By: #### C MP, LIPID #### [facility] [address] [place] [address] Dr. Bebeto Alvarado Cholesterol in HDL [Mass/Vol] 35 mg/dL Critically low 40-60 [facility] Comment on above: Performed By: #### C MP, LIPID #### [facility] [address] [address] [address] Bebeto Alvarado Cholesterol in LDL [Mass/Vol] 69.6 mg/dL Normal [facility] Comment on above: Performed By: #### C MP, LIPID #### [facility] [address] [place] [address] Dr. Bebeto Alvarado Cholesterol.total/Chol esterol in HDL [Mass ratio] 4.0 {ratio} Normal [facility] Comment on above: Performed By: #### C MP, LIPID #### [facility] [address] [address] [address] Bebeto Alvarado HDL NORMAL > or = 60 mg/dl - LO W CARDIOVASCULAR RISK <40 mg/dl - HIGH CARDIOVASCULAR RISK Normal [facility] Comment on above: Performed By: #### C MP, LIPID #### [facility] [address] [address] [address] eBbeto Alvarado LDL CALC NORMAL SEE BELOW Normal [facility] Comment on above: Result Comment: <100 mg/dl OPTIMAL 100 - 129 mg/dl NEAR OR ABOVE OPTIMAL 130 - 159 mg/dl BORDERLINE HIGH 160 - 189 mg/dl HIGH >190 mg/dl VERY HIGH Performed By: #### C MP, LIPID #### [facility] [address] [place] [address] Dr. Bebeto Alvarado Triglyceride [Mass/Vol] 172 mg/dL Critically high <=150 [facility] Comment on above: Performed By: #### C MP, LIPID #### [facility] [address] [place] [address] Dr. Bebeto Alvarado VLDL CALC 34.4 mg/dL Normal [facility] Comment on above: Performed By: #### C MP, LIPID #### [facility] [address] [place] [address] Dr. Bebeto Alvarado PROF 14(COMP METB)on 022 Albumin [Mass/Vol] 3.8 g/dL Normal 3.4-5.0 [facility] Comment on above: Performed By: #### C MP, LIPID #### [facility] [address] [place] [address] Dr. Bebeto Alvarado Albumin/Globulin [Mass ratio] 1.1 {ratio} Normal [facility] Comment on above: Performed By: #### C MP, LIPID #### [facility] [address] [place] [address] Dr. Bebeto Alvarado ALP [Catalytic activity/Vol] 96 U/L Normal 46-116 [facility] Comment on above: Performed By: #### C MP, LIPID #### [facility] [address] [place] [address] Dr. Bebeto Alvarado ALT [Catalytic activity/Vol] 25 U/L Normal 14-59 [facility] Comment on above: Performed By: #### C MP, LIPID #### [facility] [address] [place] [address] Dr. Bebeto Alvarado Anion gap [Moles/Vol] 11.8 mmol/L Normal [facility] Comment on above: Performed By: #### C MP, LIPID #### [facility] [address] [place] [address] Dr. Bebeto Alvarado AST [Catalytic activity/Vol] 20 U/L Normal 15-37 [facility] Comment on above: Performed By: #### C MP, LIPID #### [facility] [address] [place] [address] Dr. Bebeto Alvarado Bilirubin [Mass/Vol] 0.4 mg/dL Normal 0.2-1.0 [facility] Comment on above: Performed By: #### C MP, LIPID #### [facility] [address] [place] [address] Dr. Bebeto Alvarado Calcium [Mass/Vol] 8.8 mg/dL Normal 8.5-10.1 [facility] Comment on above: Performed By: #### C MP, LIPID #### [facility] [address] [place] [address] Dr. Bebeto Alvarado Chloride [Moles/Vol] 106 mmol/L Normal 98-107 [facility] Comment on above: Performed By: #### C MP, LIPID #### [facility] [address] [place] [address] Dr. Bebeto Alvarado CO2 [Moles/Vol] 27.0 mmol/L Normal 21.0-32.0 [facility] Comment on above: Performed By: #### C MP, LIPID #### [facility] [address] [place] [address] Dr. Bebeto Alvarado Creatinine [Mass/Vol] 0.97 mg/dL Normal 0.55-1.02 [facility] Comment on above: Performed By: #### C MP, LIPID #### [facility] [address] [place] [address] Dr. Bebeto Alvarado EGFR-AF [place] >60 Normal >=60 [facility] Comment on above: Performed By: #### C MP, LIPID #### [facility] [address] [address] [address] Bebeto Alvarado EGFR-NON AF [place] 59 mL/min/1.73m2 Critically low >=60 [facility] Comment on above: Performed By: #### C MP, LIPID #### [facility] [address] [address] [address] Bebeto Alvarado Globulin (S) [Mass/Vol] 3.4 g/dL Normal [facility] Comment on above: Performed By: #### C MP, LIPID #### [facility] [address] [address] [address] Bebeto Alvarado Glucose [Mass/Vol] 103 mg/dL Normal 74-106 [facility] Comment on above: Performed By: #### C MP, LIPID #### [facility] [address] [address] [address] Bebeto Alvarado Potassium [Moles/Vol] 3.8 mmol/L Normal 3.5-5.1 [facility] Comment on above: Performed By: #### C MP, LIPID #### [facility] [address] [place] [address] Dr. Bebeto Alvarado Protein [Mass/Vol] 7.2 g/dL Normal 6.4-8.2 [facility] Comment on above: Performed By: #### C MP, LIPID #### [facility] [address] [place] [address] Dr. Bebeto Alvarado Sodium [Moles/Vol] 141 mmol/L Normal 136-145 [facility] Comment on above: Performed By: #### C MP, LIPID #### [facility] [address] [address] [address] Bebeto Alvarado Urea nitrogen [Mass/Vol] 11.0 mg/dL Normal 7.0-18.0 [facility] Comment on above: Performed By: #### C MP, LIPID #### [facility] [address] [address] [address] Bebeto Alvarado Urea nitrogen/Creatinine [Mass ratio] 11.3 mg/mg Normal [facility] Comment on above: Performed By: #### C MP, LIPID #### [facility] [address] [place] [address] Dr. Bebeto Alvarado URIC ACID SERUMon 11-21-2021 Urate [Mass/Vol] 7.3 mg/dL Critically high 2.6-6.0 [facility] Comment on above: Performed By: #### A 1C #### [facility] [address] [place] [address] Dr. Bebeto Alvarado VITAMIN B12on 11-21-2021 Cobalamin (Vitamin B12) [Mass/Vol] 2123.0 pg/mL Critically high 193.0-986.0 [facility] Comment on above: Performed By: #### A 1C #### [facility] [address] [place] [address] Dr. Bebeto Alvarado Physician Referralon 022 Physician Referral [phone] [id number] Normal [facility] KNEE RIGHT 1 OR 2 VWSon 0 KNEE RIGHT 1 OR 2 VWS [facility] Department of Radiology [address] [place] [id number] ======== Patient Name: MICHELLE BE : 1960 Sex: F Age: Race: White Pt. 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 Transcribed by: [email or web address], User Resident: Electronically Signed by: DEBRA DEL CID @ 02/08/2019 11:16 AM Normal [facility] Comment on above: Order Comment: , Rossie ws (X-RAY, KNEE): Radiologic Protocol , Weight Bearing?: N , With or Without Brace/Cast/Collar: With , Views (X-RAY, KNEE): Radiologic Protocol , Weight Bearing?: N , With or Without Brace/Cast/Collar: With , , , Ordering Provider - AHSAN BINGHAM PA-C , KNEE RIGHT 1 OR 2 [facility] KNEE RIGHT 1 OR 2 [facility] Department of Radiology [address] [place] [id number] ======== Patient Name: MICHELLE BE : [...] complications. Electronically signed by:Tomasz Stoll. Transcribed by: [email or web address], User Resident: Electronically Signed by: TOMASZ STOLL @ 12/07/2018 11:14 AM Normal [facility] Comment on above: Order Comment: , Vie ws (X-RAY, KNEE): Radiologic Protocol , Weight Bearing?: N , With or Without Brace/Cast/Collar: With , Views (X-RAY, KNEE): Radiologic Protocol , Weight Bearing?: N , With or Without Brace/Cast/Collar: With , , , Ordering Provider - AHSAN BINGHAM PA-C , KNEE RIGHT 1 OR 2 [facility] KNEE RIGHT 1 OR 2 [facility] Department of Radiology [address] [place] [id number] ======== Patient Name: MICHELLE BE : 1960 Sex: F Age: Race: White Pt. 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 Transcribed by: [email or web address], User Resident: Electronically Signed by: ANUP ELLISON @ 10/06/2018 02:48 PM Normal [facility] Comment on above: Order Comment: , Vie ws (X-RAY, KNEE): Radiologic Protocol , Weight Bearing?: N , With or Without Brace/Cast/Collar: With , Views (X-RAY, KNEE): Radiologic Protocol , Weight Bearing?: N , With or Without Brace/Cast/Collar: With , , , Ordering Provider - AHSAN BINGHAM PA-C , KNEE RIGHT 1 OR 2 [facility] 08-05 KNEE RIGHT 1 OR 2 [facility] Department of Radiology [address] [place] [id number] ======== Patient Name: MICHELLE BE : 1960 Sex: F Age: Race: White Pt. Location: 84 Patient Status: Ordered Date: 08/26/2018 2:30:00 PM Completed Date: 08/26/2018 02:54 PM Requesting Provider: AHSAN BINGHAM Attending Provider: Report Copy To: Signs & Symptoms: S82.001A Unsp fracture of right patella, init for clos fx I10 History: [place] Comments: , , , Ordering Provider - AHSAN BINGHAM PA-C , Exam: KNEE RIGHT 1 OR 2 [facility] ======== KNEE RIGHT 1 OR 2 [facility] 08/26/2018 [...] effusion Electronically signed by:Anup Ellison. Transcribed by: [email or web address], User Resident: Electronically Signed by: ANUP ELLISON @ 08/26/2018 04:56 PM [place] [facility] Comment on above: Order Comment: , Vie ws (X-RAY, KNEE): Radiologic Protocol , Weight Bearing?: N , With or Without Brace/Cast/Collar: With , Views (X-RAY, KNEE): Radiologic Protocol , Weight Bearing?: N , With or Without Brace/Cast/Collar: With , , , Ordering Provider - AHSAN BINGHAM PA-C , KNEE RIGHT 1 OR 2 [facility] 07-06 KNEE RIGHT 1 OR 2 [facility] Department of Radiology [address] [place] [id number] ======== Patient Name: MICHELLE BE : [...] compartment Electronically signed by:Anup Ellison. Transcribed by: [email or web address], User Resident: Electronically Signed by: ANUP ELLISON @ 07/29/2018 03:41 PM Normal [facility] Comment on above: Order Comment: , Vie ws (X-RAY, KNEE): Radiologic Protocol , Weight Bearing?: N , With or Without Brace/Cast/Collar: With , Views (X-RAY, KNEE): Radiologic Protocol , Weight Bearing?: N , With or Without Brace/Cast/Collar: With , , , Ordering Provider - AHSAN BINGHAM PA-C , KNEE RIGHT 3 [facility] 9 KNEE RIGHT 3 [facility] Department of Radiology [address] [place] [id number] ======== Patient Name: MICHELLE BE : 1960 Sex: F Age: Race: White Pt. Location: Patient Status: Ordered Date: 07/15/2018 8:45:00 AM Completed Date: 07/15/2018 08:47 AM Requesting Provider: ASHAN BINGHAM Attending Provider: Report Copy To: Signs & Symptoms: S82.001A Unsp fracture of right patella, init for clos fx I10 History: [place] Comments: , , , Ordering Provider - AHSAN BINGHAM PA-C , Exam: KNEE RIGHT 3 [facility] ======== KNEE RIGHT 3 VWS 07/15/2018 8:47 [...] knee Electronically signed by:Anup Ellison. Transcribed by: [email or web address], User Resident: Electronically Signed by: ANUP ELLISON @ 07/15/2018 03:31 PM Normal [facility] Comment on above: Order Comment: , Rossie ws (X-RAY, KNEE): Radiologic Protocol , Weight Bearing?: N , With or Without Brace/Cast/Collar: With , Views (X-RAY, KNEE): Radiologic Protocol , Weight Bearing?: N , With or Without Brace/Cast/Collar: With , , , Ordering Provider - AHSAN BINGHAM PA-C , Operative Reporton 9 Operative Report MR#: [id number] [facility] Pt. Name: Michelle Be Room #: [...] Duarte MD Date Trans: 07/03/2018 04:28 Monse/terry [id number] Normal [facility] *ANAEROBIC CULTUREon 019 *ANAEROBIC CULTURE Clinical Report: (D) Specimen/Source: SWAB/RT KNEE Collected: 07/02/2018 13:53 Status: Final Last Updated: 07/07/2018 08:02 CULT RES (Final) No Anaerobes Isolated 5 Days Normal [facility] Comment on above: Performed By: #### 3 0312 #### [place] [address] *WOUND CULTUREon 07-02-2018 *WOUND CULTURE Clinical Report: (D) Specimen/Source: WOUND/INTRAOP SPEC Collected: 07/02/2018 13:53 Status: Final Last Updated: 07/07/2018 10:13 (1) #1 RT KNEE GRAM (Final) Rare Polys No Bacteria Seen CULT RES (Final) No Growth Day 5 Normal [facility] Comment on above: Order Comment: #1 RT KNEE Performed By: #### 3 0343 #### [address] [address] KNEE RIGHT 1 OR 2 Son 06-05 KNEE RIGHT 1 OR 2 [facility] Department of Radiology [address] [place] [phone] ======== Patient Name: MICHELLE BE : [...] Electronically signed by:Debra Del Cid. Transcribed by: [email or web address], User Resident: Electronically Signed by: DEBRA DEL CID @ 07/02/2018 02:03 PM Normal [facility] Comment on above: Order Comment: ORIF VS PERCUTANEOUS FIXATION RIGHT PATELLA POC GLUCOSE LABon 07-02-2018 Glucose [Mass/Vol] 108 mg/dL High 70-100 [facility] Comment on above: Performed By: #### 8 5499 #### [facility] [address] [facility]. [address] APTTon 06-30-2018 aPTT Coag (Bld) [Time] 30.6 s Normal 25.0-35.0 [facility] Comment on above: Result Comment: ALL [...] THIS PURPOSE. Performed By: #### 5 6101, 10023 #### [facility] [address] [place] [address], [facility] BASIC METABOLIC PANELon 06-05 Calcium [Mass/Vol] 9.7 mg/dL Normal 8.6-10.3 [facility] Comment on above: Performed By: #### 0 0071 #### [facility] [address] [facility] [place] [address], [facility] Chloride [Moles/Vol] 102 mmol/L Normal 98-107 [facility] Comment on above: Performed By: #### 0 0071 #### [facility] [address] [facility] [place] [address], [facility] CO2 [Moles/Vol] 28 mmol/L Normal 21-31 [facility] Comment on above: Performed By: #### 0 0071 #### [facility] [address] [place] [address], [facility] Creatinine [Mass/Vol] 1.20 mg/dL Normal 0.60-1.20 [facility] Comment on above: Performed By: #### 0 0071 #### [facility] [address] [place] [address], [facility] GFR/1.73 sq M predicted among blacks MDRD (S/P/Bld) [Vol rate/Area] 56 ml/min/1.73sq m Abnormal >60 [facility] Comment on above: Performed By: #### 0 0071 #### [facility] [address] [facility] [place] [address], [facility] GFR/1.73 sq M predicted among non-blacks MDRD (S/P/Bld) [Vol rate/Area] 47 ml/min/1.73sq m Abnormal >60 [facility] Comment on above: Performed By: #### 0 0071 #### [facility] [address] [facility] [place] [id number], [facility] Glucose [Mass/Vol] 97 mg/dL Normal 70-100 [facility] Comment on above: Performed By: #### 0 0071 #### [facility] [address] [facility] [place] [address], [facility] Potassium [Moles/Vol] 4.1 mmol/L Normal 3.5-5.1 [facility] Comment on above: Performed By: #### 0 0071 #### [facility] [address] [place] [address], [facility] Sodium [Moles/Vol] 137 mmol/L Normal 136-145 [facility] Comment on above: Performed By: #### 0 0071 #### [facility] [address] Urea nitrogen [Mass/Vol] 19 mg/dL Normal 7-25 [facility] Comment on above: Performed By: #### 0 0071 #### [facility] [address] CBC W/DIFFon 06-30-2018 ABS BASOPHILS 0.1 10*3/uL Normal 0.0-0.2 [facility] Comment on above: Performed By: #### 5 0103 #### [facility] [address] ABS IMM GRANS 0.0 10*3/uL Normal 0.0-0.2 [facility] Comment on above: Performed By: #### 5 0103 #### [facility] [address] ABS NEUTROPHILS 6.4 10*3/uL Normal 1.6-7.6 [facility] Comment on above: Performed By: #### 5 0103 #### [facility] [address] Basophils/100 WBC (Bld) 0.7 % Normal 0.0-1.0 [facility] Comment on above: Performed By: #### 5 0103 #### [facility] [address] Eosinophils (Bld) [#/Vol] 0.2 10*3/uL Normal 0.0-0.5 [facility] Comment on above: Performed By: #### 5 0103 #### [facility] [address] [place] [address], [facility] Eosinophils/100 WBC (Bld) 1.5 % Normal 0.0-6.0 [facility] Comment on above: Performed By: #### 5 0103 #### [facility] [address] Erythrocyte distribution width (RBC) [Ratio] 14.4 % Normal 11.5-15.0 [facility] Comment on above: Performed By: #### 5 0103 #### [facility] [address] [facility] [place] [address], [facility] Hematocrit (Bld) [Volume fraction] 40.6 % Normal 36.0-45.0 [facility] Comment on above: Performed By: #### 5 0103 #### [facility] [address] [facility] [place] [address], [facility] Hemoglobin (Bld) [Mass/Vol] 13.3 g/dL Normal 12.0-15.0 [facility] Comment on above: Performed By: #### 5 0103 #### [facility] [address] [facility] [place] [address], [facility] IMMATURE GRANS 0.4 % Normal 0.0-1.0 [facility] Comment on above: Performed By: #### 5 0103 #### [facility] [address] [facility] [place] [address], [facility] Lymphocytes (Bld) [#/Vol] 2.6 10*3/uL Normal 1.2-4.0 [facility] Comment on above: Performed By: #### 5 0103 #### [facility] [address] [facility] [place] [address], [facility] Lymphocytes/100 WBC (Bld) 26.5 % Normal 20.0-45.0 [facility] Comment on above: Performed By: #### 5 0103 #### [facility] [address] [facility] [place] [address], [facility] MCH (RBC) [Entitic mass] 27.4 pg Normal 27.0-33.0 [facility] Comment on above: Performed By: #### 5 3 #### [facility] [address] [place] [address], [facility] MCHC (RBC) [Mass/Vol] 32.8 g/dL Normal 32.0-35.0 [facility] Comment on above: Performed By: #### 5 0103 #### [facility] [address] [place] [address], [facility] MCV (RBC) [Entitic vol] 83.5 fL Normal 82.0-98.0 [facility] Comment on above: Performed By: #### 5 0103 #### [facility] [address] [place] [address], [facility] Monocytes (Bld) [#/Vol] 0.5 10*3/uL Normal 0.1-1.0 [facility] Comment on above: Performed By: #### 5 0103 #### [facility] [address] [place] [address], [facility] MONOS 5.0 % Normal 5.0-12.0 [facility] Comment on above: Performed By: #### 5 0103 #### [facility] [address] Neutrophils/100 WBC (Bld) 65.9 % Normal 40.0-72.0 [facility] Comment on above: Performed By: #### 5 0103 #### [facility] [address] [place] [address], [facility] Nucleated RBC/100 WBC (Bld) [Ratio] 0 % Normal 0-0 [facility] Comment on above: Performed By: #### 5 0103 #### [facility] [address] [place] [address], [facility] PLAT CNT 290 10*3/uL Normal 150-400 [facility] Comment on above: Performed By: #### 5 3 #### [facility] [address] [place] [address], [facility] RBC (Bld) [#/Vol] 4.86 10*6/uL Normal 3.80-5.00 [facility] Comment on above: Performed By: #### 5 0103 #### [facility] [address] [facility]. [address] WBC (Bld) [#/Vol] 9.68 10*3/uL Normal 4.00-10.60 [facility] Comment on above: Performed By: #### 5 0103 #### [facility] [address] [facility]. [place], [place] [id number] [place] [address] KNEE RIGHT 1 OR 2 VWSon 06-05 KNEE RIGHT 1 OR 2 [facility] Department of Radiology [address] [place] [address] ======== Patient Name: MICHELLE BE [...] Electronically signed by:Debra Del Cid. Transcribed by: [email or web address], User Resident: Electronically Signed by: DEBRA DEL CID @ 06/30/2018 11:52 AM Normal [facility] Comment on above: Order Comment: , Mabel ws (X-RAY, KNEE): Radiologic Protocol , Weight Bearing?: N , With or Without Brace/Cast/Collar: With , Views (X-RAY, KNEE): Radiologic Protocol , Weight Bearing?: N , With or Without Brace/Cast/Collar: With , , , Ordering Provider - AHSAN BINGHAM PA-C , PROTHROMBIN TIMEon 9 INR Coag (PPP) [Relative time] 0.98 {INR} Normal 0.91-1.16 [facility] Comment on above: Result Comment: [facility] P RECOMMENDED INR FOR WARFARIN THERAPY --------- [...] CHEST 1995;108:231S-246S. Performed By: #### 5 6101, [address] #### [address] PT Coag (PPP) [Time] 13.0 s Normal 12.3-14.8 [facility] Comment on above: Result Comment: ALL RESULTS MUST BE INTERPRETED WITH RESPECT TO BLOOD DRAWING ARTIFACT OR DILUTION ERROR OF ANTICOAGULANT AT THE TIME OF SAMPLING. Performed By: #### 5 6101, [address] #### [address] KNEE RIGHT 3 [facility] 9 KNEE RIGHT 3 [facility] Department of Radiology [address] [place] [phone] ======== Patient Name: MICHELLE BE : 1960 Sex: F Age: Race: White Pt. Location: Patient Status: O Ordered Date: 06/15/2018 1:35:00 PM Completed Date: 06/15/2018 01:34 PM Requesting Provider: AMPARO ZHANG Attending Provider: AMPARO ZHANG Report Copy To: MERRYGERONIMONena ADELAIDA Signs & Symptoms: M17.11 Unilateral primary osteoarthritis, right knee I10 History: [place] Comments: , Weight Bearing?: Y , Weight Bearing?: Y , , , Ordering Provider - AMPARO ZHANG PA-C , Exam: KNEE RIGHT 3 [facility] ======== KNEE RIGHT 3 [facility] 06/15/2018 1:34 PM EDT SIGNS AND SYMPTOMS: [...] effusion Electronically signed by:Anup Ellison. Transcribed by: [email or web address], User Resident: Electronically Signed by: ANUP ELLISON @ 06/15/2018 03:50 PM Normal [facility] Comment on above: Order Comment: , Isaiah ght Bearing?: Y , Weight Bearing?: Y , , , Ordering Provider - AMPARO ZHANG PA-C , Vital Signs Date Time Vital Sign Value Performing Clinician Facility 05-18-2023 16:30-0500 Body height 162.6 cm Adelaida Sousabob CREDIT REVIEW ANALYST Work Phone: [facility] 05-18-2023 16:30-0500 Body mass index (BMI) [Ratio] 47.89 kg/m2 Adelaida Aicsherineholz CREDIT REVIEW ANALYST Work Phone: [facility] 05-18-2023 16:30-0500 Body temperature 97.3 [degF] Adelaida Aichholz CREDIT REVIEW ANALYST Work Phone: [facility] 05-18-2023 16:30-0500 Body weight 126.55 kg Adelaida Aichholz CREDIT REVIEW ANALYST Work Phone: [facility] 05-18-2023 16:30-0500 Diastolic blood pressure 80 mm[Hg] Adelaida Aichholz CREDIT REVIEW ANALYST Work Phone: [facility] 05-18-2023 16:30-0500 Heart rate 76 /min Adelaida Aichholz CREDIT REVIEW ANALYST Work Phone: [facility] 05-18-2023 16:30-0500 Respiratory rate 19 /min Adelaida Aichholz CREDIT REVIEW ANALYST Work Phone: [facility] 05-18-2023 16:30-0500 SaO2% (BldA) [Mass fraction] 97 % Adelaida Aichholz CREDIT REVIEW ANALYST Work Phone: [facility] 05-18-2023 16:30-0500 Systolic blood pressure 134 mm[Hg] Adelaida Aichholz CREDIT REVIEW ANALYST Work Phone: [facility] 03-23-2023 12:10-0500 Diastolic blood pressure 98 mm[Hg] Adelaida Aichholz Work Phone: [facility] 03-23-2023 12:10-0500 Heart rate 76 /min Adelaida Aichholz Work Phone: [facility] 03-23-2023 12:10-0500 Respiratory rate 18 /min Adelaida Carrion Work Phone: [facility] 03-23-2023 12:10-0500 SaO2% (BldA) [Mass fraction] 99 % Adelaida Carrion Work Phone: [facility] 03-23-2023 12:10-0500 Systolic blood pressure 162 mm[Hg] Adelaida Carrion Work Phone: [facility] 03-23-2023 10:53-0500 Body height 162.56 cm Adelaida Carrion Work Phone: [facility] 03-23-2023 10:53-0500 Body weight 125.64 kg Adelaida Carrion Work Phone: [facility] 12-19-2022 14:55-0400 Body height 162.56 cm Rosemary Vernonmond Other [email or web address] Other 12-19-2022 14:55-0400 Body mass index (BMI) [Ratio] 47.85 kg/m2 Rosemary Marita Other [email or web address] Other 12-19-2022 14:55-0400 Body temperature 97.8 [degF] Rosemary Marita Other [email or web address] Other 12-19-2022 14:55-0400 Body weight 126.46 kg Rosemary Marita Other [email or web address] Other 12-19-2022 14:55-0400 Respiratory rate 20 /min Rosemary Marita Other [email or web address] Other 12-19-2022 14:55-0400 SaO2% (BldA) [Mass fraction] 95 % Rosemary Marita Other [email or web address] Other 11-20-2022 13:12-0400 Body temperature 97.7 [degF] Adelaida Carrion Work Phone: [facility] 11-20-2022 13:12-0400 SaO2% (BldA) [Mass fraction] 96 % Adelaidamonse Sousaholz Work Phone: [facility] 11-20-2022 07:44-0400 Diastolic blood pressure 90 mm[Hg] Adelaida Aicsherineholz Work Phone: [facility] 11-20-2022 07:44-0400 Heart rate 103 /min Adelaida Merryholz Work Phone: [facility] 11-20-2022 07:44-0400 Systolic blood pressure 152 mm[Hg] Adelaida Merryholz Work Phone: [facility] 11-19-2022 20:00-0400 Respiratory rate 18 /min Adelaidamonse Sousaholz Work Phone: [facility] 11-18-2022 15:18-0400 Body height 162.56 cm Adelaida Sousaholz Work Phone: [facility] 11-17-2022 09:00-0400 Body weight 122.92 kg Adelaida Sousaholz Work Phone: [facility] Encounters Encounter Date Encounter Type Care Provider Facility Start: 05-18-2023 End: 05-18-2023 Office outpatient visit 25 minutes Adelaida Carrion CREDIT REVIEW ANALYST Work Phone: [facility] Comment on above: Encounter for annual wellness visit (AWV) in Medicare patient (Primary Dx); OSMANY (obstructive sleep apnea); Chronic pain disorder; Gastroesophageal reflux disease, unspecified whether esophagitis present; Overactive bladder; Lower extremity edema; Pre-diabetes; Morbid obesity (CMS/HCC); Yeast infection of the skin; Tobacco dependence; Mood disorder (CMS/HCC); Primary hypertension (CMS/HCC); Left hip pain; Open wound of anterior abdominal wall, initial encounter Start: 05-18-2023 Bamboo flowsheet Adelaida Carrion CREDIT REVIEW ANALYST Work Phone: [facility] Start: 05-18-2023 Bamboo flowsheet Adelaida aCrrion CREDIT REVIEW ANALYST Work Phone: [facility] Start: 05-18-2023 End: 05-18-2023 Patient encounter procedure Adelaida Carrion CREDIT REVIEW ANALYST Work Phone: [facility] Start: 03-25-2023 End: 03-25-2023 ambulatory ADELAIDA CARRION Not Available Start: 03-23-2023 End: 03-23-2023 ambulatory Jace Graham Facility:[facility] Start: 03-23-2023 End: 03-23-2023 Admission to same day surgery center Adelaida Carrion Work Phone: [facility] Work Phone: Start: 03-23-2023 End: 03-23-2023 ambulatory Adelaida Carrion Work Phone: [facility] Work Phone: Start: 03-11-2023 End: 03-11-2023 ambulatory KALLI INTERIANO Not Available Start: 03-02-2023 ambulatory Eduardo Acevedo acility:[facility] Start: 02-20-2023 End: 02-20-2023 ambulatory ASHLEIGH JEREZ Not Available Start: 02-12-2023 End: 02-12-2023 ambulatory Jace Graham Other [email or web address] Other Start: 02-12-2023 Telephone encounter Jace Haney Field Service Coordinator Start: 12-19-2022 End: 12-19-2022 ambulatory Rosemary Kirkland Other [email or web address] Other Start: 12-19-2022 Office outpatient ne w 10 minutes Rosemary Kirkland [facility] José Miguel Start: 11-17-2022 End: 11-20-2022 Evaluation and management of inpatient Adelaida Carrion Facility:[facility] Start: 11-17-2022 End: 11-20-2022 Evaluation and management of inpatient Adelaida Carrion Work Phone: [facility] Work Phone: Start: 09-04-2022 ambulatory ARIAN JOHNSON Makenzie Facili ty:[facility] Start: 08-26-2022 ambulatory NARENDRANATH LAKSHMIPATHY . Facility:[facility] Start: 08-08-2022 End: 08-09-2022 ambulatory SUPERVISOR FERTILIZER ADELAIDA CARRION Facility:[facility] Start: 07-25-2022 End: 07-26-2022 ambulatory LIVIER CARRION Facility:[facility] Start: 07-15-2022 End: 07-15-2022 ambulatory NARENDRANATH LAKSHMIPATHY . Facility:[facility] Start: 07-11-2022 ambulatory NARENDRANATH LAKSHMIPATHY . Facility:[facility] Start: 06-26-2022 End: 06-27-[address] FINA ZIMMER . Facility:[facility] Start: 06-11-2022 ambulatory LIVIER CARRION Facil ity:[facility] Start: 05-21-2022 End: 06-11-2022 ambulatory LIVIER CARRION Facility:[facility] Start: 05-08-2022 End: 05-09-2022 ambulatory LIVIER CARRION Facility:[facility] Start: 04-28-2022 End: 04-28-2022 ambulatory LIVIER CARRION Facility:[facility] Start: 04-03-2022 End: 04-04-[address] FINA ZIMMER . Facility:[facility] Start: 03-19-2022 End: 03-20-2022 ambulatory SUPERVISOR FERTILIZER ADELAIDA CARRION Facility:[facility] Start: 02-20-2022 End: 02-20-2022 ambulatory GILMER NEVES Facility:[facility] Start: 01-10-2022 End: 02-12-2022 ambulatory BRIDGETTE MACEDO Facility:[facility] Start: 01-02-2022 End: 01-03-[address] FINA ZIMMER . Facility:[facility] Start: 01-01-2022 End: 01-02-2022 ambulatory BRIDGETTE MACEDO Facility:[facility] Start: 12-16-2021 End: 12-16-2021 ambulatory LIVIER WITT SHEYLA Facility:[facility] Start: 11-21-2021 End: 11-22-[address] DOCTOR BERGERON Facility:[facility] Start: 10-03-2021 End: 10-04-[address] FINA ZIMMER . Facility:[facility] Start: 09-19-[address] FINA ZIMMER . Faci lity:[facility]1 Start: 09-12-2021 End: 09-12-2021 ambulatory LIVIER WITT SHEYLA Facility:[facility] Start: 08-20-2021 End: 08-20-[address] FINA ZIMMER . Facility:[facility] Start: 07-02-2018 End: 07-03-2018 Patient encounter procedure SUKIBULMARO ESCALANTE Facility:[facility] Procedures Date Procedure Procedure Detail Performing Clinician Start: 03-23-2023 Screening colonoscopy L onealmonse Carrion Work Phone: Start: 03-23-2023 Colonoscopy Adelaida Jayden ramos CREDIT REVIEW ANALYST Work Phone: Start: 09-15-2022 Mammography Adelaida ramos CREDIT REVIEW ANALYST Work Phone: Start: 08-28-2022 Microscopic observat ion [Identifier] in Cervix by Cyto stain Adelaida Carrion CREDIT REVIEW ANALYST Work Phone: Start: 07-02-2018 ANESTH KNEE AREA SURGERY CHAPARRITA HENDRICKS Start: 07-02-2018 REMOVAL OF SUPPORT IMPLANT SUKI EBRAMORENO Start: 07-02-2018 TREAT KNEECAP FRACTURE SUKI EBRAHEIM Plan of Treatment Date Care Activity Detail Author Start: 03-23-2033 Screening for malignant neoplasm of colon [facility] Start: 08-28-2025 Screening for malignant neoplasm of cervix [facility] Start: 05-18-2024 Medicare Annual Wellness (AWV) Medicare Annual Wellness (AWV) [facility] Start: 09-16-2023 Screening for malignant neoplasm of breast Mammogram [facility] Start: 08-17-2023 End: 08-17-2023 Patient encounter procedure 08/17/2023 9:20 AM EDT Office Visit [facility] [address] [place] [id number] Adelaida Carrion, CREDIT REVIEW ANALYST [address] [place] [phone] [facility] Start: 05-18-2023 End: 05-18-2023 Patient encounter procedure 05/18/2023 4:30 PM EST Office Visit [facility] [address] [place] [phone] Adelaida Carrion, CREDIT REVIEW ANALYST [address] [place] [address] Arrived [facility] Comment on above: Arrived Start: 05-18-2023 End: 05-18-2024 XR Hip - left 3 Views XR hip left 2 or 3 views Imaging Routine Left hip pain Expected: 05/18/2023 (Approximate), Expires: 05/18/2024 [facility] Work Phone: Comment on above: Expected: 05/18/2023 (Approximate), Expires: 05/18/2024 Start: 03-23-2023 [facility] Start: 11-20-2022 [facility] Start: 11-18-2022 Referral to clinical finisher operator [facility] Start: 11-17-2022 Hospital admission [facility] Start: 11-17-2022 [facility] Start: 12-06-1991 Screening for malignant neoplasm of cervix HPV/Cotest [facility] Start: 1960 Medicare Annual Wellness (AWV) Medicare Annual Wellness (AWV) [facility] Start: 1960 Screening for malignant neoplasm of colon [facility] Patient Education [facility] Work Phone: Patient referral [facility] Work Phone: [facility] Immunizations Immunization Date Immunization Notes Care Provider Fa cility 02-13-2023 influenza, injectabl e, quadrivalent, preservative free Adelaida Aichholz CREDIT REVIEW ANALYST Work Phone: [facility] 02-13-2023 SARS-COV-2 (COVID-19 ) vaccine, mRNA, spike protein, LNP, PF, 50 mcg/0.5 mL Adelaida Aichholz CREDIT REVIEW ANALYST Work Phone: [facility] 02-19-2022 diphtheria, tetanus toxoids and pertussis vaccine Adelaida Aichholz CREDIT REVIEW ANALYST Work Phone: [facility] 03-02-2021 Moderna SARS-CoV-2 Vaccination Adelaida Aichholz CREDIT REVIEW ANALYST Work Phone: [facility] 08-24-2020 Moderna SARS-CoV-2 Vaccination Adelaida Aichholz CREDIT REVIEW ANALYST Work Phone: [facility] 07-27-2020 Moderna SARS-CoV-2 Vaccination Adelaida Aichholz CREDIT REVIEW ANALYST Work Phone: [facility] 05-28-2018 influenza, injectabl e, quadrivalent, preservative free Adelaida Aichholz Work Phone: [facility] Payers Date Payer Category Payer Medicare [id number] 2022 Private Health Insurance [id number] 2022 Self-pay [id number] 2022 Medicare [employer] MEDICARE REPLACEMENT [id number] 2022-Present [address] [address] [place] [address] [id number] 2008 Unknown [id number] 1960 Unknown [id number] 2.16.840.1.464376.3.579.2 .647 1961 Unknown [id number] 2.16.840.1.669954.3.579.2 .593 1961 Unknown [id number] 2.16.840.1.953655.3.579.2 .593 1961 Unknown [id number] 2.16.840.1.822231.3.579.2 .593 1961 Unknown [id number] 2.16.840.1.144586.3.579.2 .593 1961 Unknown [id number] 2.16.840.1.118134.3.579.2 .593 1961 Unknown [id number] 2.16.840.1.541487.3.579.2 .593 1961 Unknown [id number] 2.16.840.1.386483.3.579.2 .593 1961 Unknown [id number] 2.16.840.1.056273.3.579.2 .593 1961 Unknown [id number] 2.16.840.1.077305.3.579.2 .593 1961 Unknown [id number] 2.16.840.1.575046.3.579.2 .593 1961 Unknown [id number] 2.16.840.1.244565.3.579.2 .593 1961 Unknown [id number] 2.16.840.1.827134.3.579.2 .593 1961 Unknown [id number] 2.16.840.1.331832.3.579.2 .593 1961 Unknown [id number] 2.16.840.1.539381.3.579.2 .593 1961 Unknown [id number] 2.16.840.1.407870.3.579.2 .593 1961 Unknown [id number] 2.16.840.1.694294.3.579.2 .593 1961 Unknown [id number] 2.16.840.1.456705.3.579.2 .593 1961 Unknown [id number] 2.16.840.1.006995.3.579.2 .593 1961 Unknown [id number] 2.16.840.1.643124.3.579.2 .593 1961 Unknown [id number] 2.16.840.1.455949.3.579.2 .593 1961 Unknown [id number] 2.16.840.1.399782.3.579.2 .593 1961 Unknown [id number] 2.16.840.1.786099.3.579.2 .593 1961 Unknown [id number] 2.16.840.1.861212.3.579.2 .593 1961 Unknown [id number] 2.16.840.1.400647.3.579.2 .593 1961 Unknown [id number] 2.16.840.1.003872.3.579.2 .1259 1961 Unknown [id number] 2.16.840.1.380643.3.579.2 .1259 1961 Unknown [id number] 2.16.840.1.190854.3.579.2 .1259 1959 Medicare [id number] 1959 Unknown [id number] Unknown [id number] 2.16.840.1.131823.3.579.2 .531 Unknown [id number] 2.16.840.1.291385.3.579.2 .531 Unknown [id number] 2.16.840.1.481283.3.579.2 .531 Social History Date Type Detail Facility Start: 11-18-2022 End: 02-09-2023 Tobacco smoking status NHIS Ex-smoker (finding) [facility] Start: 1960 Sex Assigned At Female [facility] Start: 03-25-2023 End: 05-18-2023 Sex Assigned At [facility] End: 04-06-2016 History of tobacco use Current smoker [facility] End: 04-06-2016 History of tobacco use Cigarette Smoker [facility] Start: 02-09-2023 End: 05-18-2023 Cigarettes smoked current (pack per day) - Reported 1 [facility] Start: 02-09-2023 Tobacco use and exposure Smokeless tobacco non-user [facility] Start: 05-18-2023 Alcohol intake Lifetime non-drinker (finding) [facility] Start: 11-13-2022 Alcohol Comment caffeine intake: 1-2 cups per day. [facility] Start: 10-01-2022 Gender identity Identifies as female gender (finding) [facility] Start: 10-01-2022 Sexual orientation Heterosexual (finding) [facility] Within the last year , have you been afraid of your partner or ex-partner? No [facility] Are you now , , , , never or living with a partner? [facility] How often to you hav e a drink containing alcohol? Never [facility] How many standard drinks containing alcohol do you have on a typical day? Patient does not drink [facility] How hard is it for y ou to pay for the very basics like food, housing, medical care, and heating Very hard [facility] Do you feel stress - tense, restless, nervous, or anxious, or unable to sleep at night because your mind is troubled all the time - these days [OSQ] Very much [facility] (I/We) worried wheth er (my/our) food would run out before (I/we) got money to buy more. Never true [facility] The food that (I/we) bought just didn't last, and (I/we) didn't have money to get more. Often true [facility] In the past 12 month s, was there a time when you were not able to pay the mortgage or rent on time? Yes [facility] Goals Date Patient Goal Desired Activity /State Functional Status Date Assessment Result Facility 11-20-2022 Functional status Patient at Baseline [facility] Work Phone: Mental Status Date Assessment Result Facility 11-20-2022 Cognitive function Cognitive Sta tus Patient is Progressing Toward Baseline [facility] Work Phone: Clinical Notes 10-03-2021 to 05-18-2023 Adelaida Carrion NP - 05/18/2023 5:49 PM ESTAdelaida Carrion, BRIANA - 05/18/2023 5:47 PM ESTAdelaida Carrion, BRIANA - 05/18/2023 5:20 PM ESTAdelaida Carrion, BRIANA - 05/18/2023 5:17 PM EST Note Date & Type Note Facility 05-18-2023 History of Present illness Narrative Associated Problem(s): Open wound anterior abdominal wall Culture obtained, will hold on atb until we know what results of culture May continue with peroxide and atb ointment Associated Problem(s): Yeast infection of the skin Discussed skin care, cont nystatin powder and cream and will add diflucan Fu if not better Associated Problem(s): Encounter for annual wellness visit (AWV) in Medicare patient Reviewed Ht/Wt/BMI Recommend eye exam yearly Recommend dental exams twice a year Balance work/leisure activities Exercises is recommended most days of the week (appropriate as chronic conditions allow) Follow up yearly and prn Associated Problem(s): GERD (gastroesophageal reflux disease) stable Associated Problem(s): Primary hypertension (CMS/HCC) At goal no changes in meds Associated Problem(s): OSMANY (obstructive sleep apnea) Compliant with PAP Associated Problem(s): Mood disorder (CMS/HCC) Continue with Psych for management Ulcer on left side of abdomin Left hip arthritis-flared up and troubles walking Right hip/abdominal fold- yeast Needing more diflucan 150mg Images from the original note were not included. Michelle Be is a 62 y.o. female presents with chief complaint of No chief complaint on file. HPI: Here for her AWV test. Also has a few other c.o to address Yeast skin infection groin fold, also a sore on her LLQ has been using peroxide, and bactroban ointment Hip Pain The incident occurred more than 1 week ago. The incident occurred at home. There was no injury mechanism. The pain is present in the left hip. Quality: sharp. The pain is at a severity of 9/10. The pain has been Constant since onset. She reports no foreign bodies present. SUBJECTIVE: MEDICATIONS: Current Outpatient Medications Medication Instructions Ambien 10 mg, Nightly amLODIPine (NORVASC) 10 mg, Oral, Daily biotin 1 MG capsule Biotin Calcium Citrate-Vitamin D (CITRACAL + D PO) Citracal + D carvedilol (COREG) 3.125 mg, Oral, 2 times daily cetirizine (ZYRTEC) 10 mg, Oral, Daily clonazePAM (KLONOPIN) 1 mg, Oral, 2 times daily PRN DULoxetine (CYMBALTA) 60 mg, 2 times daily fluconazole (DIFLUCAN) 150 mg, Oral, Daily fluticasone (Flonase) 50 MCG/ACT nasal spray 2 sprays furosemide (LASIX) 20 mg, Oral, Daily gabapentin (NEURONTIN) 600 mg, Oral, Daily, 1 tablet in the am, 1 in the afternoon and 2 at HS. Iron-Vitamin C 65-125 MG tablet 60 mg, Oral, 2 times daily ketoconazole (NIZOral) 2 % cream 1 application , Topical, Daily losartan (COZAAR) 100 mg, Oral, Daily Magnesium 400 MG capsule magnesium Melatonin 12 MG tablet dispersible Every 24 hours Multiple Vitamins-Minerals (BARIATRIC MULTIVITAMINS/IRON PO) Bariatric Multivitamins/Iron nystatin (Mycostatin) 705359 UNIT/GM powder 1 application , Topical, 2 times daily OLANZapine zydis (ZYPREXA) 5 mg, Oral, Every 6 hours PRN omeprazole (PriLOSEC) [address] capsule Every 24 hours rOPINIRole (REQUIP) 4 mg, Oral, Every evening, Take 2 hours prior to bedtime. tiZANidine (ZANAFLEX) 4 mg, Oral, Daily traZODone (DESYREL) 150 mg, Oral, Nightly Vraylar 4.5 mg, Oral, Daily ALLERGIES: Allergies Allergen Reactions Penicillins Anaphylaxis Tetracycline Hives and Unknown Levetiracetam Hallucinations and Other Milnacipran Hallucinations, Other and Unknown Prochlorperazine Unknown and Other Wound Dressing Adhesive Rash and Unknown Other Other REVIEW OF SYMPTOMS: Review of Systems Constitutional: Negative for appetite change, chills and fever. HENT: Negative for congestion, ear pain and sore throat. Eyes: Negative for pain, discharge, redness and visual disturbance. Respiratory: Negative for cough, shortness of breath and wheezing. Cardiovascular: Negative for chest pain, palpitations and leg swelling. Gastrointestinal: Negative for abdominal pain, blood in stool, constipation, diarrhea, nausea and vomiting. Genitourinary: Negative for difficulty urinating, dysuria and frequency. Musculoskeletal: Positive for arthralgias, back pain and joint swelling. Negative for myalgias. Skin: Positive for rash. Negative for wound. Neurological: Negative for dizziness, tremors, seizures, syncope and headaches. Psychiatric/Behavioral: Positive for behavioral problems. Negative for self-injury. The patient is nervous/anxious. Hematological: Does not bruise/bleed easily. Endocrine: Negative for polydipsia, polyphagia and polyuria. Allergic/Immunologic: Negative for environmental allergies and food allergies. PAST MEDICAL HISTORY Past Medical History: Diagnosis Date Abnormal mammogram of left breast Achilles tendinitis, right leg Acute gout of right foot, unspecified cause Allergic rhinitis 05/18/2023 Anemia Anxiety 05/18/2023 Bipolar disorder with severe depression ([facility]) 05/18/2023 Brain vascular malformation Chronic pain disorder Colon polyps Constipation Degenerative cervical disc Degenerative lumbar disc Depression ([facility]) 05/18/2023 Diastolic dysfunction Dizziness 05/18/2023 Dysphagia Fibromyalgia Gastrocnemius equinus GERD (gastroesophageal reflux disease) Heart murmur Hematoma of right breast Hemiparesis, right ([facility]) Hemorrhoid int/external hemorrhoids Hiatal hernia Iron deficiency Left foot pain 03/25/2023 Lower extremity edema Mood disorder ([facility]) mixed mood disorder OSMANY (obstructive sleep apnea) Osteoporosis ([facility]) Overactive bladder Pre-diabetes Primary hypertension ([facility]) 03/25/2023 PTSD (post-traumatic stress disorder) ([facility]) Restless leg Right knee pain Right sided weakness S/P bariatric surgery Shingles Slurred speech Stroke ([facility]) 2018 Tenosynovitis, de Quervain Thoracic back pain, unspecified back pain laterality, unspecified chronicity Tobacco dependence Vertigo, benign paroxysmal Yeast infection of the skin 05/18/2023 Past Surgical History: Procedure Laterality Date APPENDECTOMY BREAST LUMPECTOMY Right SECTION, LOW TRANSVERSE x2 CHOLECYSTECTOMY COLONOSCOPY 2011 DENTAL IMPLANT DILATION AND CURETTAGE OF UTERUS x2 HIATAL HERNIA REPAIR KNEE SURGERY Right 2018 x2 LAMINECTOMY L4/L5 LAPAROSCOPIC GASTRIC BANDING 2008 OTHER SURGICAL HISTORY hair follicle from scalp TONSILLECTOMY WISDOM TOOTH EXTRACTION WRIST SURGERY Left 10/31/2022 1ST DORSAL COMPARTMENT RELEASE family history includes Arthritis in her father; Dementia in her father; Diabetes in her mother; Heart disease in her father; Hyperlipidemia in her father; Hypertension in her father; Kidney failure in her mother; Spinal Meningitis in her mother. OBJECTIVE: Visit Vitals BP 134/80 (BP Location: Left arm, Patient Position: Sitting, BP Cuff Size: Large adult) Pulse 76 Temp 97.3 F (Temporal) Resp 19 Ht 5' 4 Wt 279 lb SpO2 97% BMI 47.89 kg/m Smoking Status Former BSA 2.4 m Physical Exam Vitals reviewed. Constitutional: General: She is not in acute distress. Appearance: Normal appearance. HENT: Head: Normocephalic and atraumatic. Right Ear: External ear normal. Left Ear: External ear normal. Nose: Nose normal. Mouth/Throat: Mouth: Mucous membranes are moist. Eyes: Extraocular Movements: Extraocular movements intact. Conjunctiva/sclera: Conjunctivae normal. Neck: Vascular: No carotid bruit. Cardiovascular: Rate and Rhythm: Normal rate and regular rhythm. Pulses: Normal pulses. Heart sounds: Normal heart sounds. Pulmonary: Effort: Pulmonary effort is normal. Breath sounds: Normal breath sounds. Abdominal: General: Bowel sounds are normal. There is no distension. Palpations: Abdomen is soft. There is no mass. Tenderness: There is no abdominal tenderness. Musculoskeletal: General: Normal range of motion. Cervical back: Neck supple. Skin: General: Skin is warm and dry. Capillary Refill: Capillary refill takes 2 to 3 seconds. Findings: Erythema and lesion present. No rash. Comments: Under right abd fold: erythema c/w yeast Also in LLQ abd open area measures approx 8mm diameter, appox 2 mm deep w surround mild erythema, sloughed tissue noted no active drainage noted Neurological: General: No focal deficit present. Mental Status: She is alert and oriented to person, place, and time. Psychiatric: Mood and Affect: Mood normal. Behavior: Behavior normal. Thought Content: Thought content normal. Judgment: Judgment normal. ASSESSMENT AND PLAN: No follow-ups on file. Problem List Items Addressed This Visit Primary hypertension (CMS/HCC) At goal no changes in meds Morbid obesity (CMS/HCC) OSMANY (obstructive sleep apnea) - Primary Compliant with PAP Chronic pain disorder GERD (gastroesophageal reflux disease) stable Overactive bladder Lower extremity edema Pre-diabetes Mood disorder (CMS/HCC) Continue with Psych for management Tobacco dependence Yeast infection of the skin Encounter for annual wellness visit (AWV) in Medicare patient Reviewed Ht/Wt/BMI Recommend eye exam yearly Recommend dental exams twice a year Balance work/leisure activities Exercises is recommended most days of the week (appropriate as chronic conditions allow) Follow up yearly and prn documented in this encounter [facility] 03-23-2023 Procedure note [facility] 12-19-2022 Evaluation note Encounter Date Diagnosis Assessment Notes Dec, Skin candidiasis (ICD-10 - B37.2) Drink plenty fluids, get plenty of rest. Continue home medications as prescribed. Take the Diflucan as prescribed until gone. Follow-up with your family physician if no improvement in 2 to 3 days [email or web address] Other 08-17-2023 Discharge summary Author Eduardo bautista [facility] November 20, 2022 6:38am Note Date/Time November 20, 2022 6: 38am [facility] [address] [place] [address] Discharge Summary Signed Patient: Michelle Be MR#: [id number] : 1960 Acct:[id number] Age/Sex: 61 / F Adm Date: 3 Loc: Room: 5Z4523-[address]: Gaudencio Monk MD Copies to: MD Adelaida Álvarez, CREDIT REVIEW ANALYST-C~ Providers Date of Discharge: 11/20/22 Discharging Provider: [...] at that time.? She reports moving to [place] from [place] in 2011 and was then diagnosed with bipolar disorder at [facility] in [place], where she still follows with a therapist.? Shereports that she has been with 7 therapists in the last 9 years and is currentlycompleting EMDR with her current therapist. Past hospitalizations: Her most recent hospitalization was 5 years ago [facility] in [place] for the same feeling she is experiencing [...] worked since 2010 due to her fibromyalgia.? [facility]. Relationships: Reports having people [...] self or stop treatment, but to call [employer], 911 or come to the nearest emergency [...] Tablet 1 tab PO QID Follow Up: [facility] [Outside] [facility] [Outside] ( manager agency: (Insert date/time here) Therapy:? (insert date/time here) Intake: (Insert date/time here) Please bring a copy of your photo ID, insurance card, and proof of household income.? Psychiatry: (Insert date/time here) Group: (Insert date/time here ) ) Adelaida Carrion [Primary Care Provider] - (Please contact for any medical needs) Documented By: Eduardo Monk MD 3 [id number] Signed By: <Electronically signed by Edurado Monk MD> 11/20/22 0638 [facility] Work Phone: 1(559) 589-911908-16-2023 Progress note Author Eduardo bautista [facility] November 19, 2022 6:25am Note Date/Time November 19, 2022 6: 25am [facility] [address] [place] [address] Psychiatry Progress Note Signed Patient: Michelle Be MR#: [id number] : 1960 Acct:[id number] Age/Sex: 61 / F Adm Date: 3 Loc: 1S Room: [address] [place] [address] Type : ADM IN Attending Dr: Gaudencio [...] By: <Electronically signed by Eduardo Monk MD> 11/19/22624 [facility] Work Phone: 1(407) 246-249208-15-2023 Progress note Author Eduardo bautista [facility] November 18, 2022 11:01am Note Date/Time November 18, 2022 10 :11am [facility] [address] [place] [address] Psychiatry Progress Note Signed Patient: Michelle Be MR#: [id number] : 1960 Acct:[id number] Age/Sex: 61 / F Adm Date: 3 Loc: Room: [address] [place] [address] Type : ADM IN Attending Dr: Gaudencio [...] by requesting a schedule 2 referring to [facility] for pain management specifically every 4-6 hours [...] signed by MD DA Rangel> 11/18/22 1011 [facility] Work Phone: 1(128) 110-968008-14-2023 History and physical note Author Eduardo bautista [facility] November 17, 2022 12:48pm Note Date/Time November 17, 2022 12 :48pm [facility] [address] [place] [address] Psychiatry H&P Signed Patient: Michelle Be MR#: [id number] : 1960 Acct:[id number] Age/Sex: 61 / F Adm Date: 3 Loc: 1S Room: 5Y8334-2 Type: ADM IN Attending Dr: Gaudencio Monk [...] at that time. She reports moving to [place] from [place] in 2011 and was then diagnosed with bipolar disorder at [facility] in [place], where she still follows with a therapist. Shereports that she has been with 7 therapists in the last 9 years and is currentlycompleting EMDR with her current therapist. Past hospitalizations: Her most recent hospitalization was 5 years ago [facility] in [place] for the same feeling she is experiencing [...] her , son and his girlfriend, and shiradson. Reports a situation in which they are attempting to seek custody of the grandson from the mother of the child. She reports not feeling safe at homewith herself but feels safe when her family is home. 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 [facility]. Relationships: Reports having people who [...] equal bilaterally. CN XII: Tongue protrusion midline [facility] Medical History (Updated 11/17/22 @ 10:42 [...] signed by Eduardo Monk MD> 11/17/22 1248 [facility] Work Phone: 1(551) 652-895203-23-2023 NoteCONSULTATION CONSULTATION DATE: 06/26/2022 To: Nurse Carrion [...] L5-S1 facet joint injection under fluoroscopic guidance.[facility] [id number] NotePROCEDURE: XR SHOULDER RT 2V or > [...] authenticated by: KINGSLEY CLEMENTS Date: 2022-05-09 09:21[facility] [id number] NotePROCEDURE: XR WRIST LT MIN 3 V [...] authenticated by: KINGSLEY CLEMENTS Date: 2022-04-28 13:31[facility] [id number] NoteCONSULTATION CONSULTATION DATE: 04/03/2022 HISTORY OF PRESENT [...] her in three months, unless otherwise indicated.[facility] [id number] NoteCONSULTATION CONSULTATION DATE: 01/02/2022 This is a [...] prescription was sent by Dr. Macedo to [facility] in [place] for the compounded cream. She needs a [...] in three months' time unless otherwise indicated.[facility] [id number] NotePROCEDURE: XR ANKLE RT MIN 3 VIEWS, [...] Electronically authenticated by: KINGSLEY CLEMENTS Date: 2022-01-01 13:11[facility]09-28-2022 NotePROCEDURE: XR ANKLE RT MIN 3 VIEWS, [...] Electronically authenticated by: KINGSLEY CLEMENTS Date: 2022-01-01 13:11[facility]08-18-2022 NotePROCEDURE: XR FOOT RT MIN 3 VIEWS HISTORY: Pain in right foot , chronic COMPARISON: XR foot right 2020 FINDINGS: BONES:No fracture, dislocation, bone lesion. Small calcaneal degenerative enthesophytes. SOFT TISSUES:No visible soft tissue swelling. EFFUSION:None visible. OTHER: Negative. IMPRESSION: 1. No acute bone abnormality or significant degenerative joint disease. Electronically authenticated by: KINGSLEY CLEMENTS Date: 2021-11-21 16:13[facility]06-30-2022 NoteCONSULTATION CONSULTATION DATE: 10/03/2021 This is a [...] patient agrees with the plan of care. [facility] Signed and Approved by: ZELDA MCDANIEL . 10/10/2021 10:22:00[facility] Diagnosis Onset Date Resolution Status Allergies acute Bipolar 2 disorder acute Hypertension acute Morbid obesity with BMI of 45.0-49.9, adult acute OSMANY (obstructive sleep apnea) acute Restless legs syndrome acute [facility] Work Phone: Evaluation noteNo InformationNort [employer] Other Evaluation noteNo assessment information available [facility] Work Phone: Evaluation note* Diagnosis Encounter for annual wellness visit (AWV) in Medicare patient- Primary OSMANY (obstructive sleep apnea) Obstructive sleep apnea (adult) (pediatric) Chronic pain disorder Chronic pain syndrome Gastroesophageal reflux disease, unspecified whether esophagitis present Overactive bladder Hypertonicity of bladder Lower extremity edema Edema Pre-diabetes Other abnormal glucose Morbid obesity (CMS/HCC) Morbid obesity Yeast infection of the skin Candidiasis of skin and nails Tobacco dependence Tobacco use disorder Mood disorder (CMS/HCC) Unspecified episodic mood disorder Primary hypertension ([facility]) Unspecified essential hypertension Left hip pain Pain in joint, pelvic region and thigh Open wound of anterior abdominal wall, initial encounter documented in this encounter [facility] HealthcareHistory and physical note Author Jace Graham [facility] March 23, 2023 11:21am Note Date/Time March 23, 2023 11:21am [facility] [address] [place] [address] Gastroenterology H&P Signed Patient: Michelle Be MR#: [id number] : 1960 Acct:[id number] Age/Sex: 62 / F Adm Date: 3 Loc: Room: Type: [facility] Attending Dr: Jace Graham MD Copies to: MD Adelaida Plummer CREDIT REVIEW ANALYST-C~ Date of Service: 03/23/2023 HISTORY & PHYSICAL: [...] signed by Jace Graham MD> 03/23/23 [address] [facility] Work Phone: History general Narrative - Reported* [...] see above surg Hospitalization History stroke 2018 [email or web address] Other Hospital Discharge instructions Additional Instructions Regular Diet [facility] Work Phone: Hospital Discharge instructions Additional Instructions [...] years. -Follow up with PCP. -Office number [phone].[facility] Work Phone: Summary Purpose Family History Relationship Condition Age at Onset Recorded Date/T savita Not Specified Diabetes mellitus Unknown father Hypertension Unknown father Sick sinus syndrome Unknown Advance Directives Advance Directive Response Recorded Date/ Time Advance [...] section and content) DATE CREATED AUTHOR 02/18/2019 [facility] DATE CREATED AUTHOR AUTHOR'S ORGANIZ ATION 11/15/2021 [facility] DATE CREATED AUTHOR AUTHOR'S ORGANIZ ATION 08/16/2022 [facility] DATE CREATED AUTHOR AUTHOR'S ORGANIZ ATION 03/26/2023 [facility] DATE CREATED AUTHOR AUTHOR'S ORGANIZ ATION 05/15/2023 [facility] Care Teams (unrecognized sec tion [...] MD Other Provider Active Adelaida Marsh , WOMEN NURSE Other Provider Active Jessica Murillo , DO [...] MD Other Provider Active Joellen Le , CREDIT REVIEW ANALYST-C Other Provider Active Severo Yancey MD Other Provider Active Rao Webber MD Other Provider Active Yuan Shi MD Other Provider Active Delroy Ramirez MD Other Provider Active Berta Comer , DO Other Provider Active Negrito Ruiz , DO Other Provider Active Lacho Singh , DO Other Provider Active Rachana Hobson , WOMEN NURSE Other Provider Active Rob Lake , DO Other Provider Active Jeff Alvarez MD Other Provider Active Urmila Rinaldi WOMEN NURSE Other Provider Active Bina Mayberry , WOMEN NURSE Other Provider Active Mir Bradford MD Other Provider Active Te Da Silva MD Other Provider Active Debra Landaverde , JOHANN Other Provider Active Team Status: Inactive Member Role Status Dates Adelaida Carrion Primary Care Provider Active Jace Graham MD Attending Provider Active Forming Machine Adjuster Relationship Specialty Start Date End Date José Luis Roberts MD [address] [place] [address] PCP - General Family Medicine 05/18/23 Adelaida Carrion NP [address] [place] [address] Referring Physician Nurse Practitioner 10/14/22 Forming Machine Adjuster Relationship Specialty Start Date End Date José Luis Roberts MD [address] [place] [address] PCP - General Family Medicine 05/18/23 Adelaida Carrion NP [address] [place] [address] Referring Physician Nurse Practitioner 10/14/22 REASON FOR VISIT (unrecogniz ed section and [...] BE BASED ON THE PRIMARY CLINICAL RECORDS. [facility] [employer] [facility]. provides no warranty or guarantee of the accuracy or completeness of information in this document.
--- NOTE | 2023-05-19 08:03 | XR_ITS ---
The [address] [address] Patient Name: MICHELLE BE MRN: [id number] date: 1960 Sex: F Assigned Patient Location: [facility] Current Patient Location: [facility] Accession/Order Number: [id number] Exam Date: 05/19/2023 07:50 Report Date: 05/19/2023 09:31 At the request of: EDUAR MOYER Procedure: XR hip LT min 2V PROCEDURE: XR hip LT min 2V COMPARISON: None. HISTORY: Left Hip Pain M25.552 FINDINGS: BONES:No acute fracture or dislocation. Mild left hip osteoarthropathy with joint space narrowing and marginal osteophyte formation SOFT TISSUES:Negative. No visible soft tissue swelling. EFFUSION:None visible. OTHER: Negative. XR/XR hip LT min 2V IMPRESSION: Moderate left hip osteoarthritis Electronically authenticated by: HARRISON MACIEL Date: 05/19/2023 09:31
== END 2023-05-19 07:43 | disposition home or self-care (01) ==
LOC: RAD 07:45
PROVIDERS: PCP Nurse Practitioner; Visit Provider Nurse Practitioner
DX: M25.552 Pain in left hip (principal); M16.12 Unilateral primary osteoarthritis, left hip
CPT/HCPCS: 73502

== ENCOUNTER 2023-06-15 14:25 | Emergency (ER) | payer MEDICARE, SELFPAY ==
[2023-06-15 14:30] VITALS: BP 156/90; PULSE 90; RESP 18; TEMP 36.6; O2SAT 95; BMI 47.2
--- NOTE | 2023-06-15 14:46 | XR_ITS ---
The [address] [address] Patient Name: MICHELLE BE MRN: [id number] date: 1960 Sex: F Assigned Patient Location: ER Current Patient Location: ER Accession/Order Number: [id number] Exam Date: 06/15/2023 14:55 Report Date: 06/15/2023 15:20 At the request of: JONATHAN LEMUS Procedure: XR chest 1V EXAMINATION: XR chest 1V HISTORY: Cough COMPARISON: No relevant comparison available. TECHNIQUE: AP erect portable FINDINGS: LUNGS: No significant pulmonary parenchymal abnormalities. VASCULATURE: No increased pulmonary vasculature. PLEURA: No pneumothorax, effusion, or pleural thickening. CARDIAC: No cardiomegaly or cardiac silhouette abnormality. MEDIASTINUM: No visible mass or adenopathy. Aortic atherosclerosis BONES: No fracture or visible bone lesion. OTHER: Negative. XR/XR chest 1V IMPRESSION: No acute cardiac pulmonary process Electronically authenticated by: HARRISON MACIEL Date: 06/15/2023 15:20
--- NOTE | 2023-06-15 14:47 | ED.URI1 ---
HPI - URI/Sore Throat General Chief Complaint: Upper Respiratory Infection Stated Complaint: SHORTNESS OF BREATH Time Seen by Provider: 06/15/23 14:33 Source: patient Limitations: no limitations History of Present Illness HPI Narrative: 62-year-old female presents for what she describes as an upper respiratory infection. She has had this for 2 days and she has been coughing and has some congestion. No fever or vomiting or hemoptysis. She is not complaining of chest pain. No known ill contacts Related Data Home Medications Medication Instructions Recorded Confirmed amlodipine 10 mg tablet (Norvasc) 10 mg PO DAILY 09/10/22 03/10/23 biotin 1 mg capsule 1 mg PO DAILY 09/10/22 03/10/23 cariprazine 4.5 mg capsule 4.5 mg PO Q24H 09/10/22 03/10/23 (Vraylar) cetirizine 10 mg tablet (24Hour 10 mg PO DAILY PRN allergy symptoms 09/10/22 03/10/23 Allergy) clonazepam 1 mg tablet 1 mg 09/10/22 duloxetine 60 mg capsule,delayed mg PO 09/10/22 release ferrous sulfate 325 mg (65 mg 325 mg PO BID 09/10/22 03/10/23 iron) tablet (FeroSul) gabapentin 600 mg tablet 1,200 mg PO DAILY 09/10/22 03/10/23 (Neurontin) gabapentin 600 mg tablet 600 mg PO DAILY 09/10/22 03/10/23 (Neurontin) losartan 50 mg tablet (Cozaar) 50 mg PO DAILY 09/10/22 03/10/23 magnesium 200 mg tablet 400 mg PO BID 09/10/22 03/10/23 melatonin 12 mg tablet 12 mg PO .HS PRN sleep 09/10/22 03/10/23 omeprazole 20 mg capsule,delayed 20 mg 09/10/22 release ropinirole 4 mg tablet mg 09/10/22 trazodone 150 mg tablet 150 mg 09/10/22 zolpidem 10 mg tablet 10 mg 09/10/22 olanzapine 5 mg tablet (Zyprexa) 5 mg PO DAILY PRN anxiety 01/06/23 03/10/23 carvedilol 3.125 mg tablet (Coreg) 3.125 mg PO BID 02/10/23 03/10/23 tizanidine 4 mg capsule 4 mg PO TID PRN muscle spasticity 02/18/23 03/10/23 Previous Rx's Medication Instructions Recorded azithromycin 250 mg tablet See Rx Instructions PO .COMPLEX #6 06/15/23 (Zithromax Z-Aldo) tabs benzonatate 100 mg capsule 100 mg PO TID PRN cough #20 caps 06/15/23 Allergies Allergy/AdvReac Type Severity Reaction Status Date / Time levetiracetam [From [facility]] Allergy Severe Verified 03/10/23 07:09 adhesive Allergy Intermediate Blister Verified 03/10/23 07:09 Penicillins Allergy Intermediate Verified 03/10/23 07:09 tetracycline Allergy Intermediate Verified 03/10/23 07:09 milnacipran [From [facility]] AdvReac Intermediate Agitated Verified 03/10/23 07:09 prochlorperazine AdvReac Intermediate Agitated Verified 03/10/23 07:09 [From Compazine] Review of Systems ROS Narrative A ten point review of systems is negative except as noted above. PFSH PFSH Medical History Acid reflux ?K21.9 - Gastro-esophageal reflux disease without esophagitis (ICD-10) Bipolar 1 disorder ?F31.9 - Bipolar disorder, unspecified (ICD-10) FH: bariatric surgery ?Z84.89 - Family history of other specified conditions (ICD-10) Fibromyalgia ?M79.7 - Fibromyalgia (ICD-10) Heart murmur ?R01.1 - Cardiac murmur, unspecified (ICD-10) High cholesterol ?E78.00 - Pure hypercholesterolemia, unspecified (ICD-10) Hypertension ?I10 - Essential (primary) hypertension (ICD-10) Low back pain ?M54.50 - Low back pain, unspecified (ICD-10) Neck pain ?M54.2 - Cervicalgia (ICD-10) Obesity ?E66.9 - Obesity, unspecified (ICD-10) Osteoarthritis ?M19.90 - Unspecified osteoarthritis, unspecified site (ICD-10) Sleep apnea ?G47.30 - Sleep apnea, unspecified (ICD-10) Upper back pain ?M54.9 - Dorsalgia, unspecified (ICD-10) Surgical History S/P dilatation and curettage ?Z98.890 - Other specified postprocedural states (ICD-10) H/O breast biopsy ?Z98.890 - Other specified postprocedural states (ICD-10) S/P ORIF (open reduction internal fixation) fracture ?Z98.890 - Other specified postprocedural states (ICD-10) ?Z87.81 - Personal history of (healed) traumatic fracture (ICD-10) Hx of laparoscopic gastric banding ?Z98.84 - Bariatric surgery status (ICD-10) History of tonsillectomy and adenoidectomy ?Z90.89 - Acquired absence of other organs (ICD-10) History of appendectomy ?Z90.49 - Acquired absence of other specified parts of digestive tract (ICD-10) History of hemilaminectomy ?Z98.890 - Other specified postprocedural states (ICD-10) History of cholecystectomy ?Z90.49 - Acquired absence of other specified parts of digestive tract (ICD-10) Previous section ?Z98.891 - History of uterine scar from previous surgery (ICD-10) Social History Smoking status: Former smoker Exam Narrative Exam Narrative: Nurses note and vital signs reviewed and patient is not hypoxic. General: The patient appears well and in no apparent distress. Patient is resting comfortably on cart. Skin: Warm, dry, no pallor noted. There is no rash noted. Head: Normocephalic, atraumatic Eye: Normal conjunctiva, no drainage Ears, Nose, Mouth, and Throat: oral mucosa is moist. Nares patent. Cardiovascular: Regular Rate and Rhythm Respiratory: Patient is in no distress, no accessory muscle use, lungs are clear to auscultation, no wheezing, rales or rhonchi Back: non-tender GI: Soft and nontender Musculoskeletal: The patient has no evidence of calf tenderness, no pitting edema, symmetrical pulses noted bilaterally Neurological: A&O, normal speech Psychiatric: Cooperative Constitutional Vital Signs, click to edit/add: Last Vital Signs Temp 97.8 F 06/15/23 14:30 Pulse 90 06/15/23 14:30 Resp 18 06/15/23 14:30 BP 156/90 H 06/15/23 14:30 Pulse Ox 95 06/15/23 14:30 O2 Del Method Room Air 06/15/23 14:30 Course Vital Signs Vital signs: Vital Signs Temperature 97.8 F 06/15/23 14:30 Pulse Rate 90 06/15/23 14:30 Respiratory Rate 18 06/15/23 14:30 Blood Pressure 156/90 H 06/15/23 14:30 Pulse Oximetry 95 06/15/23 14:30 Oxygen Delivery Method Room Air 06/15/23 14:30 Temperature 97.8 F 06/15/23 14:30 Pulse Rate 90 06/15/23 14:30 Respiratory Rate 18 06/15/23 14:30 Blood Pressure 156/90 H 06/15/23 14:30 Pulse Oximetry 95 06/15/23 14:30 Oxygen Delivery Method Room Air 06/15/23 14:30 MDM - URI/Sore Throat MDM Narrative Medical decision making narrative: Chest x-ray, COVID test, and influenza test are all negative. She is requesting an antibiotic. Treatment diagnosis and follow-up were discussed with the patient. Differential Diagnosis Differential diagnosis: Likely upper respiratory infection, influenza and other (COVID, pneumonia) Lab Data Attestation: I reviewed the patient's lab results. Labs: Lab Results 06/15/23 Range/Units 14:50 Influenza Type A Ag Negative Influenza Type B Ag Negative SARS-CoV-2 Ag (CV2AG) Negative (NEGATIVE) Imaging Data Chest x-ray: Radiologist's impression: ITS Impressions Chest X-Ray 06/15/23 14:46 IMPRESSION: No acute cardiac pulmonary process Electronically authenticated by: HARRISON MACIEL Date: 06/15/2023 15:20 Discharge Plan Discharge Stand Alone Forms: Portal Instructions Chief Complaint: Upper Respiratory Infection Clinical Impression: Upper respiratory infection Patient Disposition: Home, Self-Care Time of Disposition Decision: 15:49 Condition: Good Mode of Transportation: Private Vehicle Prescriptions / Home Meds: New azithromycin [Zithromax Z-Aldo] 250 mg tablet See Rx Instructions .ROUTE .COMPLEX Qty: 6 0RF Rx Instructions: For 250 mg dose pack: take 500 mg today (day 1), then 250 mg for 4 days (days 2-5) benzonatate 100 mg capsule 100 mg PO TID PRN (Reason: cough) Qty: 20 0RF No Action clonazepam 1 mg tablet 1 mg omeprazole 20 mg capsule,delayed release(DR/EC) 20 mg zolpidem 10 mg tablet 10 mg ropinirole 4 mg tablet duloxetine 60 mg capsule,delayed release(DR/EC) PO Vraylar 4.5 mg capsule 4.5 mg PO Q24H biotin 1 mg capsule 1 mg PO DAILY ferrous sulfate [FeroSul] 325 mg (65 mg iron) tablet 325 mg PO BID losartan [Cozaar] 50 mg tablet 50 mg PO DAILY magnesium 200 mg tablet 400 mg PO BID melatonin 12 mg tablet 12 mg PO .HS PRN (Reason: sleep) gabapentin [Neurontin] 600 mg tablet 600 mg PO DAILY gabapentin [Neurontin] 600 mg tablet 1,200 mg PO DAILY amlodipine [Norvasc] 10 mg tablet 10 mg PO DAILY cetirizine [24Hour Allergy] 10 mg tablet 10 mg PO DAILY PRN (Reason: allergy symptoms) trazodone 150 mg tablet 150 mg tizanidine 4 mg capsule 4 mg PO TID PRN (Reason: muscle spasticity) Patient Comments: 4-8MG TID PRN carvedilol [Coreg] 3.125 mg tablet 3.125 mg PO BID Rx Instructions: must administer with a meal/food olanzapine [Zyprexa] 5 mg tablet 5 mg PO DAILY PRN (Reason: anxiety) Instructions: Upper Respiratory Infection (ED) Referrals: Adelaida Carrion NP [Primary Care Provider] - 1 week
[2023-06-15 15:25] LABS: Influenza Virus A Antigen Negative; Influenza Virus B Antigen Negative; Internal Control Within Normal Limits; SARS-CoV-2 Ag NEGATIVE (NEGATIVE)
== END 2023-06-15 15:53 | disposition home or self-care (01) ==
PROVIDERS: Emergency Provider Emergency Medicine; PCP Nurse Practitioner
DX: J06.9 Acute upper respiratory infection, unspecified (principal); K21.9 Gastro-esophageal reflux disease without esophagitis; F31.9 Bipolar disorder, unspecified; Z84.89 Family history of other specified conditions; M79.7 Fibromyalgia; E78.00 Pure hypercholesterolemia, unspecified; I10 Essential (primary) hypertension; E66.9 Obesity, unspecified; M19.90 Unspecified osteoarthritis, unspecified site; G47.30 Sleep apnea, unspecified; Z98.890 Other specified postprocedural states; Z87.81 Personal history of (healed) traumatic fracture; Z79.899 Other long term (current) drug therapy; Z90.49 Acquired absence of other specified parts of digestive tract; Z98.891 History of uterine scar from previous surgery; Z87.891 Personal history of nicotine dependence; Z90.89 Acquired absence of other organs; Z20.822 Contact with and (suspected) exposure to COVID-19; Z68.42 Body mass index [BMI] 45.0-49.9, adult
CPT/HCPCS: 71045; 87804; 87811; 99285

== ENCOUNTER 2023-06-17 12:25 | Outpatient (OUT) | payer MEDICARE, SELFPAY ==
--- OUTSIDE RECORDS SUMMARY | 2023-06-17 12:30 | XMS_ITS | CCD ---
Author Name Unknown Address [address] [place] [address] Organization [facility] Care Team Providers Care [employer] Helper Name Role Phone HELADIO ESCALANTEIL Admitting Unavailable EBRAHEIMHELADIOIL Attending Unavailable AICHHOLZ, ADELAIDA Referring Unavailable AICHHOLZ, ADELAIDA Primary Care Unavailable NV Procedure Practitioner Unavailab SUKI Jacob Surgeon Unavailable NV Procedure Practitioner Unavailab CHAPARRITA Goncalves Surgeon Unavailable BRIDGETTE MACEDO Admitting Unavailable BRIDGETTE MACEDO Attending Unavailable AICHHOLZ, COOK ICE CREAM ADELAIDA Primary Care Unavailable ZIMMER ., DR FINA Iverson Admitting Unavailable ZIMMER ., DR FINA Iverson Attending Unavailable AICHHOLZ, COOK ICE CREAM ADELAIDA Primary Care Unavailable MCDANIEL .ZELDA Consulting Unavailable LAKSHMIPATHY ., NARENDRANATH Consulting Paula vailable LAKSHMIPATHY ., NARENDRANATH Admitting Paula vailable LAKSHMIPATHY ., NARENDRANATH Attending Paula vailable AICHHOLZ, COOK ICE CREAM ADELAIDA Primary Care Unavailable LAKSHMIPATHY ., NARENDRANATH Consulting Paula vailable AICHHOLZ, COOK ICE CREAM ADELAIDA Primary Care Unavailable MARKER ., DR CHAUDHRY Admitting Unavailable MARKER ., DR CHAUDHRY Attending Unavailable MARKER ., DR CHAUDHRY Consulting Unavailable AICHHOLZ, COOK ICE CREAM ADELAIDA Admitting Unavailable AICHHOLZ, COOK ICE CREAM ADELAIDA Attending Unavailable AICHHOLZ, COOK ICE CREAM ADELAIDA Primary Care Unavailable ZIMMER ., DR FINA Iverson Admitting Unavailable ZIMMER ., DR FINA Iverson Attending Unavailable AICHHOLZ, COOK ICE CREAM ADELAIDA Primary Care Unavailable MCDANIEL ., ZELDA Consulting Unavailable ZIMMER ., DR FINA Iverson Admitting Unavailable ZIMMER ., DR FINA S Attending Unavailable AICHHOLZ, COOK ICE CREAM ADELAIDA Primary Care Unavailable MCDANIEL ., ZELDA Consulting Unavailable AICHHOLZ, COOK ICE CREAM ADELAIDA Admitting Unavailable AICHHOLZ, COOK ICE CREAM ADELAIDA Attending Unavailable AICHOLZ, COOK ICE CREAM ADELAIDA Primary Care Unavailable AICHHOLZ, COOK ICE CREAM ADELAIDA Consulting Unavailable AICHHOLZ, COOK ICE CREAM ADELAIDA Admitting Unavailable AICHHOLZ, COOK ICE CREAM ADELAIDA Attending Unavailable AICHHOLZ, COOK ICE CREAM ADELAIDA Primary Care Unavailable AICHHOLZ, COOK ICE CREAM ADELAIDA Consulting Unavailable MISC, DR COTE Admitting Unavailable MISC, DR COTE Attending Unavailable AICHHOLZ, COOK ICE CREAM ADELAIDA Primary Care Unavailable AICHHOLZ, COOK ICE CREAM ADELAIDA Consulting Unavailable MISC, DR COTE Consulting Unavailable ZIROSIEER, DR KINGSLEY Atkins Consulting Unavailable ZIMMER ., DR FINA Iverson Admitting Unavailable ZIMMER ., DR FINA Iverson Attending [facility]available [facility] ADELAIDA Primary Care Unavailable MCDANIEL ., ZELDA Consulting Unavailable ZIMMER ., DR FINA Iverson Admitting Unavailable ZIMMER ., DR FINA Iverson Attending Unavailable [facility], [facility] ADELAIDA Primary Care Unavailable ZIMMER ., DR FINA Iverson Consulting Unavailable OMID LAY Consulting Unavailable ZIMMER ., DR FINA Iverson Admitting Unavailable ZIMMER ., DR FINA Iverson Attending Unavailable AICHOLZ, COOK ICE CREAM ADELAIDA Primary Care Unavailable MCDANIEL ., ZELDA Consulting [facility] Primary Care Unavailable HALKER ., ARIAN Admitting Unavailable HALKER ., ARIAN Attending Unavailable LAKSHMIPATHY ., NARENDRANATH Consulting Paula vailable HALKER ., ARIAN Consulting Unavailable LAKSHMIPATHY ., NARENDRANATH Admitting Paula vailable LAKSHMIPATHY ., NARENDRANATH Attending Paula vailable [facility] ADELAIDA Primary Care Unavailable LAKSHMIPATHY ., NARENDRANATH Consulting Paula vailable AICHHOLZ, COOK ICE CREAM ADELAIDA Admitting Unavailable AICHHOLZ, COOK ICE CREAM ADELAIDA Attending Unavailable AICHHOLZ, COOK ICE CREAM ADELAIDA Primary Care Unavailable AICHHOLZ, COOK ICE CREAM ADELAIDA Consulting Unavailable BRIDGETTE MACEDO Admitting Unavailable BRIDGETTE MACEDO Attending Unavailable AICHOLZ, COOK ICE CREAM ADELAIDA Primary Care Unavailable STARR, DR KINGSLEY Atkins Consulting Unavailable BRIDGETTE MACEDO Consulting Unavailable GILMER NEVES Admitting Unavailable GILMER NEVES Attending Unavailable GILMER NEVES Consulting Unavailable AICHHOLZ, COOK ICE CREAM ADELAIDA Primary Care Unavailable AICHHOLZ, COOK ICE CREAM ADELAIDA Primary Care Unavailable DEEJAY, DR WILLI Atkins Admitting Unavailable DEEJAY, DR WILLI Atkins Attending Unavailable DEEJAY, DR WILLI Atkins Consulting Unavailable AICHHOLZ, COOK ICE CREAM ADELAIDA Primary Care Unavailable ALMAZ ., DANNY Admitting Unavailable ALMAZ ., DANNY Attending Unavailable STARR, DR KINGSLEY Atkins Consulting Unavailable ALMAZ ., DANNY Consulting Unavailable LAKSHMIPATHY ., NARENDRANATH Admitting Paula vailable LAKSHMIPATHY ., NARENDRANATH Attending Paula vailable AICHHOLZ, COOK ICE CREAM ADELAIDA Primary Care Unavailable AICHHOLZ, COOK ICE CREAM ADELAIDA Admitting Unavailable AICHHOLZ, COOK ICE CREAM ADELAIDA Attending Unavailable AICHHOLZ, COOK ICE CREAM ADELAIDA Primary Care Unavailable AICHHOLZ, COOK ICE CREAM ADELAIDA Admitting Unavailable AICHHOLZ, COOK ICE CREAM ADELAIDA Attending Unavailable AICHHOLZ, COOK ICE CREAM ADELAIDA Primary Care Unavailable AICHHOLZ, COOK ICE CREAM ADELAIDA Consulting Unavailable ZIEBER, DR KINGSLEY Aktins Consulting Unavailable HALKER ., ARIAN Admitting Unavailable HALKER ., ARIAN Attending Unavailable AICHHOLZ, COOK ICE CREAM ADELAIDA Primary Care Unavailable Aichholz, Adelaida J Primary Care Provider MD Gaudencio Monk Admit Provider MD Gaudencio Monk Attending Provider [phone] JOHANN Vieira Other Provider Unavailable JOHANN Pina Other Provider Unavailable JOHANN Hurtado Other Provider Unavailable JOHANN Crooks Other Provider Unavailable JOHANN Mejias Other Provider Unavailable JOHANN Kim Other Provider Unavailable MD Walker Pringle Other Provider ROSS Marsh Other Provider DO Jessica Murillo Other Provider MD Obdulio Bragg Other Provider DO Joon Cristina Other Provider [phone] MD Torin Robert Other Provider MD Dawn Barrera Other Provider Karlene ANP-BC Mari Other Provider MD Sofi Almanzar Other Provider MD Sharad Gallegos Other Provider MD Aby Cain Other Provider MD Hillary Carrera Other Provider DO Julio César Mckeon Other Provider MD Valentine Mak Other Provider MD Raymond Strong Other Provider BRIANA Le-C Joellen Mcnair Other Provider [phone] MD Severo Yancey Other Provider MD Rao Webber Other Provider MD Yuan Shi Other Provider MD Delroy Ramirez Other Provider DO Berta Comer Other Provider DO Negrito Ruiz Other Provider DO Lacho Singh Other Provider [phone] ROSS Hobson Other Provider DO Rob Lake Other Provider MD Jeff Alvarez Other Provider ROSS Rinaldi Other Provider ROSS Mayberry Other Provider MD Mir Bradford Other Provider MD Te Da Silva Other Provider JOHANN Landaverde Other Provider Unavailable Rosemary Kirkland Unavailable Jace Graham Unavailable Adelaida Carrion Primary Care Provider MD Jace Graham Attending Provider Sheyla WARREN, Adelaida Unavailable José Luis Roberts MD Primary Care Provider ASHLEIGH HINES Attending Unavailable ADELAIDA CARRION Attending Unavailable ASHLEIGH HINES Attending Unavailable JR. HARRY GEORGE C Attending UnavailADELAIDA Thakkar Attending Unavailable Adelaida Carrion Primary Care Unavailable Eduardo Monk Admitting Unavailab Andreina Chan Consulting Unavailable Eduardo [...] Graham Admitting Unavailable Jace Graham Attending Unavailable Adelaida Carrion Primary Care Unavailable Eduardo Monk Attending Unavailab Eduardo Connolly Admitting Unavailab Adelaida Wagner Primary Care Unavailable Allergies Allergy Classification Reported Allergen(s) Allergy Type Date of Onset Reaction(s) Facility (7 sources) Adhesive Tape; Translations: [ADHESIVE TAPE] Propensity to adverse reactions (disorder) 04-06-19 14 rash [facility] (3 sources) levETIRAcetam; Translations: [KEPPRA] Drug Allergy 07-02-19 19 [facility] (3 sources) milnacipran; Translations: [SAVELLA] Drug Allergy 03-14-20 13 [facility] (1 source) Penicillin; Translations: [PENICILLIN] Drug Allergy 01-16-20 18 [facility] (5 sources) Prochlorperazin e; Translations: [COMPAZINE] Drug Allergy 03-14-20 13 agitation [facility] (12 sources) Tetracycline; Translations: [TETRACYCLINE] Drug Allergy 04-06-19 13 Hives, Unknown [facility] (4 sources) Penicillins Drug allergy (disorder) 04-06-19 13 Unknown Reaction [facility] (9 sources) levETIRAcetam; Translations: [levetiracetam] Drug Allergy 12-13-19 22 Hallucinations , Other [facility] (9 sources) milnacipran; Translations: [milnacipran] Drug Allergy 12-13-19 22 hives, Hallucinations , Other, Unknown [facility] (7 sources) Prochlorperazin e; Translations: [prochlorperazi ne] Drug Allergy 12-13-19 22 Unknown, Other [facility] (2 sources) Penicillin G Drug Allergy as a child [facility] Other (2 sources) Tetracaine Drug Allergy Unknown [facility] Other (4 sources) Penicillins Drug Intolerance 12-13-19 22 Anaphylaxis [facility] (4 sources) Other Propensity to adverse reactions 12-13-19 22 Other [facility] (4 sources) Wound Dressing Adhesive Drug Allergy 09-20-19 23 Rash, Unknown [facility] (1 source) Penicillin Drug Allergy 12-20-[address] [facility] (1 source) Penicillins Drug allergy (disorder) 03-23-20 [facility] (1 source) Tetracaine Drug Allergy 12-20-19 [facility] Medications Current Medications Medication Drug Class(es) Dates Sig (Normalized) Sig (Original) amLODIPine 10 mg oral tablet (8 sources) Dihydropyridine Calcium Channel Jim Start: 11-17-2022 take 10 mg by mouth once daily Amlodipine Active 10 MG PO Daily November 16, 2022 11:00pm ascorbic acid 125 mg / iron carbonyl 65 mg oral tablet (4 sources) Vitamin C take 1 tablet by mouth in the morning Iron-Vitamin C 65-125 MG tablet Take 60 mg by mouth in the morning and 60 mg in the evening. 0 Active Bariatric Multivitamins/Iro n - (2 sources) Bariatric Multivitamins/Ir on - as directed Orally Active biotin 1 mg oral capsule (6 sources) biotin 1 MG capsule Biotin 0 [...] 2022 7:25pm Calcium Citrate / Vitamin D (4 sources) Calcium Citrate-Vitamin D (CITRACAL + D PO) Citracal + D 0 Active cariprazine 4.5 mg oral capsule (8 sources) Atypical Antipsychotic Start: take 1 capsule by mouth once daily Cariprazine (Vraylar) 4.5 mg capsule Active 4.5 MG PO Daily November 16, 2022 11:00pm carvedilol 3.125 mg oral tablet (4 sources) alpha-Adrenergic Jim, beta-Adrenergic Jim Start: End: take 1 tablet by mouth in the morning carvedilol (Coreg) 3.125 MG tablet Indications: Essential (primary) hypertension (CMS/HCC) Take 1 tablet (3.125 mg) by mouth in the morning and 1 tablet (3.125 mg) before bedtime. 60 tablet 3 04/29/2023 05/29/2023 Active cephalexin 500 mg oral capsule (1 source) Cephalosporin Antibacterial Start: End: take 1 capsule by mouth in the morning cephalexin (Keflex) 500 MG capsule Indications: Acute cystitis with hematuria Take 1 capsule (500 mg) by mouth in the morning and 1 capsule (500 mg) before bedtime. Do all this for 10 days. 20 capsule 0 05/21/2023 05/31/2023 Active cetirizine hydrochloride 10 mg oral tablet (8 sources) Histamine-1 Receptor Antagonist Start: take 10 mg by mouth once daily Cetirizine Active 10 MG PO Daily November 16, 2022 11:00pm clonazePAM 1 mg oral tablet (10 sources) Benzodiazepine Start: take 1 mg by mouth twice daily Clonazepam Active 1 MG PO Twice daily November 16, 2022 11:00pm Start: 05-27-2018 End: 11-17-2022 take 2 mg by mouth every twelve hours Clonazepam Discontinued 2 MG PO Q12H May 27, 2018 12:00am November 17, 2022 12:45am DULoxetine 60 mg delayed release oral capsule (10 sources) Serotonin and Norepinephrine Reuptake Inhibitor Start: [...] DAY Active fluconazole 150 mg oral tablet (10 sources) Azole Antifungal Start: 05-18-2023 End: 05-18-2023 fluconazole (Diflucan) 150 MG tablet Indications: Yeast infection of the skin One pill every 3 days for 3 doses 3 tablet 1 05/18/2023 Active Start: 12-19-2022 take 1 tablet by kenyatta th every other day Diflucan 150 MG 1 tablet Orally once for 6 days Take 1 tablet every other day until gone. Dec, Active Start: 05-27-2018 End: 05-28-2018 take 1 tablet by mouth every twelve hours Fluconazole (Diflucan) 150 mg tablet Discontinued 150 MG PO Q12H May 27, 2018 12:00am May 28, 2018 11:21am fluticasone propionate 0.05 mg/actuat metered dose nasal spray (8 sources) Corticosteroid Start: 11-17-2022 Fluticasone Pr opionate Active 2 SPRAY INTRANASAL Daily November 16, 2022 11:00pm fluticasone (Johnathan nase) 50 MCG/ACT nasal spray 2 sprays. 0 Active Flonase Active furosemide 20 mg oral tablet (4 sources) Loop Diuretic take 1 tablet by mouth in the morning furosemide (Lasix) 20 MG tablet Take 20 mg by mouth in the morning. 0 Active gabapentin 600 mg oral tablet (14 sources) Anti-epileptic Agent Start: 05-28-2018 End: 11-17-2022 [...] 0 Active ketoconazole 20 mg/ml topical cream (4 sources) Azole Antifungal ketoconazole (NIZOral) 2 % cream Apply 1 application topically in the morning. 0 Active losartan potassium 100 mg oral tablet (8 sources) Angiotensin 2 Receptor Jim Start: 3 take 100 mg by mouth once daily Losartan Active 100 MG PO Daily November 16, 2022 11:00pm Magnesium (6 sources) Magnesium 400 MG capsule magnesium 0 Active take 1 tablet by mouth once lissett y Magnesium 400 MG 1 tablet with a meal Orally Once a day Active melatonin 10 mg oral tablet (3 sources) Start: 03-23-2023 take 20 mg by mouth at bedtime Melatonin Active 20 MG PO Bedtime March 23, 2023 12:00am take 2 tablets by [facility] once daily at bedtime Melatonin 10 MG 2 TABLETS Orally QHS Active Melatonin 12 MG tablet dispersible (4 sources) Melatonin 12 MG tablet dispersible 1 (one) time each day at the same time. 0 Active Multiple Vitamins-Minerals (BARIATRIC MULTIVITAMINS/IRON PO) (4 sources) Multiple Vitamins-Minerals (BARIATRIC MULTIVITAMINS/IRON PO) Bariatric Multivitamins/Iron 0 Active Llsoulrmbyeb-Bdh-Fxyo-Fa- Vit K (Bariatric Multivitamins) 45 mg iron- 800 mcg-120 mcg Capsule (2 sources) Start: 11-17-2022 take 1 capsule by mouth once daily Oabialnagyze-Syv-Pegj-Fa -Vit K (Bariatric Multivitamins) 45 mg iron- 800 mcg-120 mcg Capsule Active 1 CAP PO Daily November 16, 2022 11:00pm Start: 11-17-2022 take 1 capsule by [facility] once daily Sqkplfjggxci-Ljl-Ytdq-Fa-Vit K (Bariatri c Multivitamins) 45 mg iron- 800 mcg-120 mcg Capsule Active 1 CAP PO Daily November 17, 2022 12:00am nystatin 100 unt/mg topical powder (4 sources) Polyene Antifungal nystatin (Myc ostatin) 641389 UNIT/GM powder Apply 1 application topically in the morning and 1 application before bedtime. 0 Active OLANZapine 5 mg oral tablet (6 sources) Atypical Antipsychotic Start: 3 take 5 mg by mouth every six hours Olanzapine Active 5 MG PO Q6H 30 15 November 17, 2022 11:00pm take 1 tablet by [facility] every six hours as needed OLANZapine zydis (ZyPREXA) 5 MG disintegrating tablet Take 5 mg by mouth every 6 (six) hours if needed. 0 Active omeprazole 20 mg delayed release oral capsule (8 sources) Proton Pump Inhibitor Start: 11-17-2022 take 20 mg by mouth once daily Omeprazole Active 20 MG PO Daily November 16, 2022 11:00pm rOPINIRole 4 mg oral tablet (8 sources) Nonergot Dopamine Agonist Start: 11-17-2022 take [...] 06/02/2022 Active tiZANidine 4 mg oral tablet (8 sources) Central alpha-2 Adrenergic Agonist Start: 11-17-2022 [...] Active traZODone hydrochloride 150 mg oral tablet (10 sources) Serotonin Reuptake Inhibitor Start: 11-17-2022 take 150 mg by mouth at bedtime Trazodone Active 150 MG PO Bedtime November 16, 2022 11:00pm Start: 05-27-2018 End: 11-17-2022 take 300 mg by mouth once daily Trazodone Discontinued 300 MG PO Daily May 27, 2018 12:00am November 17, 2022 12:49am zolpidem tartrate 10 mg oral tablet (8 sources) gamma-Aminobutyric Acid-ergic Agonist Start: 11-17-2022 take [...] Problem Date Documented Date Episodic/Chronic Abdominal hernia (4 sources) Hiatal hernia; Translations: [Diaphragmatic hernia without obstruction or gangrene] Onset: 05-18-19 24 05-18-2023 Episodic Acute cerebrovascular disease (4 sources) Cerebrovascular accident; Translations: [Cerebral infarction, unspecified] Onset: 04-06-19 18 05-18-2023 Chronic Anxiety disorders (10 sources) Post-traumatic stress disorder, unspecified; Translations: [Anxiety disorder, unspecified] Onset: 04-29-19 23 05-18-2023 Chronic Cardiac and circulatory congenital anomalies (4 sources) Cerebrovascular disease; Translations: [Other malformations of cerebral vessels] Onset: 05-18-19 24 05-18-2023 Chronic Conditions associated with dizziness or vertigo (8 sources) Benign paroxysmal positional vertigo; Translations: [Benign paroxysmal vertigo, unspecified ear] Onset: 05-18-19 24 05-18-2023 Episodic Deficiency and other anemia (4 sources) Anemia; Translations: [Anemia, unspecified] Onset: 05-18-19 24 05-18-2023 Episodic Diabetes mellitus without complication (2 sources) Diabetes mellitus; Translations: [Type 2 diabetes mellitus without complications] 05-31-2018 Chronic Diabetes mellitus without complication (7 sources) Prediabetes; Translations: [Prediabetes] Onset: 08-01-19 23 05-18-2023 Episodic Disorders of lipid metabolism (1 source) Pure hypercholesterolemia, unspecified; Translations: [PURE HYPERCHOLESTEROLEMIA UNSPEC] Onset: 07-17-19 Chronic Esophageal disorders (7 sources) Gastro-esophageal reflux disease without esophagitis; Translations: [Gastroesophageal reflux disease] Onset: 07-17-19 23 05-18-2023 Chronic Essential hypertension (15 sources) Essential (primary) hypertension; Translations: [Hypertensive disorder] Onset: 07-17-19 Chronic Gout and other crystal arthropathies (5 sources) Gout, unspecified; Translations: [Gouty arthritis of right foot] Onset: 11-23-1905-18-2023 Chronic Heart valve disorders (4 sources) Heart murmur; Translations: [Cardiac murmur, unspecified] Onset: 05-18-19 24 05-18-2023 Episodic Hemorrhoids (4 sources) Hemorrhoids; Translations: [Unspecified hemorrhoids] Onset: 05-18-1905-18-2023 Episodic Mood disorders (20 sources) Bipolar disorder, current episode depressed, severe, without psychotic features; Translations: [Unspecified mood [affective] disorder] Onset: 11-23-19 22 11-17-2022 Chronic Mycoses (6 sources) Candidiasis of skin and nail; Translations: [Candidiasis of skin] Onset: 05-18-19 Episodic Nutritional deficiencies (1 source) Iron deficiency; Translations: [IRON DEFICIENCY] Onset: 08-01-19 Episodic Open wounds of head; neck; and trunk (5 sources) Open wound of anterior abdominal wall ; Translations: [Unspecified open wound of abdominal wall, unspecified quadrant without penetration into peritoneal cavity, initial encounter] Onset: 05-18-19 24 05-18-2023 Episodic Osteoarthritis (5 sources) Primary osteoarthritis, right ankle and foot; Translations: [Osteoarthritis of knee] Onset: 10-03-19 18 03-25-2023 Chronic Osteoporosis (4 sources) Osteoporosis; Translations: [Age-related osteoporosis without current pathological fracture] Onset: 05-18-19 24 05-18-2023 Chronic Other and ill-defined heart disease (4 sources) Diastolic dysfunction; Translations: [Other ill-defined heart diseases] Onset: 05-18-19 24 05-18-2023 Chronic Other and unspecified benign neoplasm (4 sources) Polyp of colon; Translations: [Polyp of colon] Onset: 05-18-19 24 05-18-2023 Episodic Other connective tissue disease (1 source) Fibromyalgia; Translations: [FIBROMYALGIA] Onset: 07-17-19 Episodic Other connective tissue disease (4 sources) Radial styloid tenosynovitis [de Quervain]; Translations: [RADIAL STYLOID TENOSYNOVITIS] Onset: 06-12-19 Episodic Other connective tissue disease (2 sources) Weakness of face muscles; Translations: [Facial weakness] 11-18-2022 Episodic Other connective tissue disease (4 sources) Pain in left foot; Translations: [Pain in left foot] Onset: 03-25-20 23 03-25-2023 Episodic Other connective tissue disease (4 sources) Radial styloid tenosynovitis; Translations: [Radial styloid tenosynovitis [de Quervain]] Onset: 05-18-1905-18-2023 Episodic Other connective tissue disease (4 sources) Fibromyalgia; Translations: [Fibromyalgia] Onset: 05-18-19 24 05-18-2023 Episodic Other diseases of bladder and urethra (6 sources) Overactive bladder; Translations: [Overactive bladder] Onset: 05-18-19 24 05-18-2023 Chronic Other gastrointestinal disorders (1 source) Bariatric surgery status; Translations: [BARIATRIC SURGERY STATUS] Onset: 08-01-19 Episodic Other gastrointestinal disorders (4 sources) History of bariatric surgical procedure; Translations: [Bariatric surgery status] Onset: 05-18-19 24 05-18-2023 Episodic Other gastrointestinal disorders (4 sources) Dysphagia; Translations: [Dysphagia, unspecified] Onset: 05-18-19 24 05-18-2023 Episodic Other gastrointestinal disorders (4 sources) Constipation; Translations: [Constipation, unspecified] Onset: 05-18-19 24 05-18-2023 Episodic Other hereditary and degenerative nervous system conditions (6 sources) Restless legs; Translations: [Restless legs syndrome] Onset: 05-18-19 24 11-18-2022 Chronic Other hereditary and degenerative nervous system conditions (2 sources) Restless legs syndrome; Translations: [Restless legs syndrome (RLS)] Onset: 11-18-1911-20-2022 Chronic Other nervous system disorders (2 sources) Other chronic pain; Translations: [OTHER CHRONIC PAIN] Onset: 06-30-19 Chronic Other nervous system disorders (4 sources) Chronic pain syndrome; Translations: [CHRONIC PAIN SYNDROME] Onset: 04-03-20 Chronic Other nervous system disorders (6 sources) Chronic pain syndrome; Translations: [Chronic pain syndrome] Onset: 05-18-1905-18-2023 Chronic Other nervous system disorders (4 sources) Slurred speech; Translations: [Slurred speech] Onset: 05-18-1905-18-2023 Episodic Other non-traumatic joint disorders (4 sources) Pain in right shoulder; Translations: [PAIN IN RIGHT SHOULDER] Onset: 05-21-19 Episodic Other non-traumatic joint disorders (8 sources) Pain in right knee; Translations: [Pain in joint, lower leg] Onset: 11-21-19 17 03-25-2023 Episodic Other non-traumatic joint disorders (5 sources) Hip pain; Translations: [Pain in left [...] Chronic Other nutritional; endocrine; and metabolic disorders (6 sources) Morbid obesity; Translations: [Morbid (severe) obesity due to excess calories] Onset: 03-25-2003-25-2023 Chronic Other nutritional; endocrine; and metabolic disorders (1 source) Body mass index (BMI) 45.0-49.9, adult; Translations: [Body mass index [BMI] 45.0-49.9, adult] Onset: 11-18-19 Chronic Other upper respiratory disease (4 sources) Allergic rhinitis; Translations: [Allergic rhinitis, unspecified] Onset: 05-18-1905-18-2023 Chronic Paralysis (4 sources) Right hemiparesis; Translations: [Hemiplegia, unspecified affecting right dominant side] Onset: 05-18-1905-18-2023 Chronic Residual codes; unclassified (1 source) Sleep apnea, unspecified; Translations: [SLEEP APNEA UNSPECIFIED] Onset: 07-17-19 Chronic Residual codes; unclassified (8 sources) Obstructive sleep apnea syndrome; Translations: [Obstructive sleep apnea (adult) (pediatric)] Onset: 05-18-1911-18-2022 Chronic Residual codes; unclassified (2 sources) Obstructive sleep apnea (adult) (pediatric); Translations: [Obstructive sleep apnea (adult)(pediatric)] Onset: 11-18-1911-20-2022 Chronic Residual codes; unclassified (6 sources) Edema of lower extremity; Translations: [Localized [...] lumbar region] Onset: 08-24-19 Chronic Substance-related disorders (6 sources) Tobacco dependence syndrome; Translations: [Nicotine dependence, unspecified, uncomplicated] Onset: 05-18-1905-18-2023 Chronic Unclassified (3 sources) LOW BACK PAIN, UNSPECIFIED; Translations: [LOW BACK PAIN, UNSPECIFIED] Onset: 06-30-19 Unclassified (1 source) Encounter for screening for malignant neoplasm of colon; Translations: [Encounter for screening for malignant neoplasm of colon] Onset: 03-23-20 Urinary tract infections (4 sources) Urinary tract infectious disease; Translations: [Urinary tract infection, site not specified] Onset: 05-21-1911-18-2022 Episodic Past or Other Problems Problem Classification Problem Date Documented Date Episodic/Chronic Allergic reactions (5 sources) Unspecified contact dermatitis, unspecified cause; Translations: [Allergic condition] Onset: 09-13-2021 11-18-2022 Episodic E Codes: Cut/pierceb (1 source) Contact with scissors, initial encounter; Translations: [CONTACT WITH SCISSORS INITIAL ENC] Onset: 02-21-2022 Episodic Fracture of lower limb (4 sources) Closed fracture of patella; Translations: [Unspecified fracture of unspecified patella, initial encounter for closed fracture] Onset: 02-04-2018 03-25-2023 Episodic Immunizations and screening for infectious disease (1 source) Encounter for immunization; Translations: [ENCOUNTER FOR IMMUNIZATION] Onset: 02-21-2022 Episodic Malaise and fatigue (6 sources) Asthenia; Translations: [Weakness] Onset: 05-18-2023 Resolved: 05-18-2023 05-31-2018 Episodic Mood disorders (4 sources) Mood disorders; Translations: [DEPRESSION UNSPECIFIED] Onset: 04-29-2022 05-18-2023 Nonmalignant breast conditions (4 sources) Hematoma of right breast; Translations: [Other specified disorders of breast] Onset: 05-18-2023 Resolved: 05-18-2023 05-18-2023 Episodic Open wounds of extremities (4 sources) Laceration without foreign body of left middle finger without damage to nail, initial encounter; Translations: [LAC W/O FB LT MF W/O DMG NAIL INIT] Onset: 02-20-2022 Episodic Other aftercare (1 source) Other intermodal customer service (current) drug therapy; Translations: [OTH SNF CURRENT DRUG THERAPY] Onset: 04-29-2022 Episodic Other [...] Onset: 12-18-2021 Episodic Other connective tissue disease (4 sources) Patellar tendonitis; Translations: [Patellar tendinitis, unspecified [...] Episodic Other nutritional; endocrine; and metabolic disorders (4 sources) Excess panniculus of abdomen; Translations: [Localized [...] BACK PAIN, UNSPECIFIED] Onset: 06-26-2022 Viral infection (4 sources) Herpes zoster; Translations: [Zoster without complications] Onset: 05-18-2023 Resolved: 05-18-2023 05-18-2023 Episodic Results Test Name Value Interpretation Reference Range Facility Amphetamine Screen Ql (U)Ord ered By: Jace Graham on 03-23-2023 Amphetamines Ql (U) Negative Negative [facility] Barbiturates [Presence] in U rine by Screen methodOrdered By: Jace Graham on 03-23-2023 Barbiturates Screen Ql (U) Negative Negative [facility] Benzodiazepines Screen Ql (U )Ordered By: Jace Graham on 03-23-2023 Benzodiazepines Ql (U) Negative Negative [facility] Benzoylecgonine [Presence] i n Urine by Screen methodOrdered By: Jace Graham on 03-23-2023 Benzoylecgonine Screen Ql (U) Negative Negative [facility] Cannabinoids [Presence] in U rine by Screen methodOrdered By: Jace Graham on 03-23-2023 Cannabinoids Screen Ql (U) Negative Negative [facility] Comment on above: These are unconfirme d results and should not be used for legal purposes. Drug Cut-Off Concentration: AMPH 1000 ng/mL ELKIN 200 ng/mL ATIYA 200 ng/mL COCM 300 ng/mL OP 300 ng/mL PCP 25 ng/mL THC 20 ng/mL Drug Screen,Urineon 03-23-20 Amphetamine Screen,Urine Negative Normal Negative [facility] Comment on above: Performed By: #### U RDS #### [address] Barbiturate Screen,Urine Negative Normal Negative [facility] Comment on above: Performed By: #### U RDS #### [address] Benzodiazepines Screen,Urine Negative Normal Negative [facility] Comment on above: Performed By: #### U RDS #### [address] Cannabinoid Screen,Urine Negative Normal Negative [facility] Comment on above: Result Comment: Thes e are unconfirmed results and should not be used for legal purposes. Drug Cut-Off Concentration: AMPH 1000 ng/mL ELKIN 200 ng/mL ATIYA 200 ng/mL COCM 300 ng/mL OP 300 ng/mL PCP 25 ng/mL THC 20 ng/mL PERFORMED BY: [place] [address] PATHOLOGIST SENIOR BACKUP ADMINISTRATOR AN CURRY M.D. Performed By: #### U RDS #### [address] Cocaine Screen,Urine Negative Normal Negative [facility] Comment on above: Performed By: #### U RDS #### [place] [address] [place] Opiate Screen,Urine Negative Normal Negative [facility] Comment on above: Performed By: #### U RDS #### [address] Phencyclidine Screen,Urine Negative Normal Negative [facility] Comment on above: Performed By: #### U RDS #### [facility] [address] Opiates [Presence] in Urine by Screen methodOrdered By: Jace Graham on 03-23-2023 Opiates Screen Ql (U) Negative Negative [facility] Phencyclidine Screen Ql (U)O rdered By: Jace Graham on 03-23-2023 Phencyclidine Ql (U) Negative Negative [facility] Cholesterol [Mass/volume] in Serum or PlasmaOrdered By: Eduardo Monk on 11-18-2022 Cholesterol [Mass/Vol] 159 mg/dL 140-200 [facility] Comment on above: Chol less than 200 m g/dl low riskChol 201-239 mg/dl borderline riskChol 240 mg/dl and greater high risk Cholesterol in LDL Calc [Mas s/Vol]Ordered By: Eduardo Monk on 11-18-2022 Cholesterol in LDL [Mass/Vol] 84 mg/dL 0-100 [facility] Comment on above: LDL ATP III CLASSIFI CATIONLDL less than 100 mg/dL OptimalLDL 100-129 mg/dL Near or above optimalLDL 130-159 mg/dL Borderline highLDL 160-189 mg/dL HighLDL greater than 189 mg/dL Very high Cholesterol in VLDL Calc [Ma ss/Vol]Ordered By: Eduardo Monk on 11-18-2022 Cholesterol in VLDL [Mass/Vol] 28 mg/dL [facility] Lipid Panelon 11-18-2022 Cholesterol [Mass/Vol] 159 mg/dL Normal 140-200 [facility] Comment on above: Order Comment: teri barney to tomorrow morning Result Comment: Chol less than 200 mg/dl low risk Chol 201-239 mg/dl borderline risk Chol 240 mg/dl and greater high risk Performed By: #### L IPID #### [facility] [address] [place] [id number] [facility] Cholesterol in HDL [Mass/Vol] 46 mg/dL Normal 23-92 [facility] Comment on above: Order Comment: teri barney to tomorrow morning Result Comment: HDL CHOL ATP-III CLASSIFICATION Cardiovascular Risk HDL > or equal to 60 mg/dL LOW HDL < 40 mg/dL HIGH Performed By: #### L IPID #### [facility] [address] Cholesterol.total/Chol esterol in HDL [Mass ratio] 3.5 {ratio} Normal <5.0 [facility] Comment on above: Order Comment: teri barney to tomorr morning Result Comment: PERF ORMED BY: [facility] [address] [place] [address] PATHOLOGIST SENIOR BACKUP ADMINISTRATOR AN CURRY M.D. Performed By: #### L IPID #### [facility] [address] LDL Cholesterol,Calculated 84 mg/dL Normal 0-100 [facility] Comment on above: Order Comment: teri barney to orr morning Result Comment: LDL ATP III CLASSIFICATION LDL less than 100 mg/dL Optimal LDL 100-129 mg/dL Near or above optimal LDL 130-159 mg/dL Borderline high LDL 160-189 mg/dL High LDL greater than 189 mg/dL Very high Performed By: #### L IPID #### [facility] [address] Triglyceride w/Reflex 144 mg/dL Normal 0-149 [facility] Comment on above: Order Comment: teri barney to tomorr morning Result Comment: TRIG ATP III CLASSIFICATION TRIG less than 150 mg/dL Normal TRIG 150-199 mg/dL Borderline high TRIG 200-500 mg/dL High TRIG greater than 500 mg/dL Very high Standard traceable to the Center for Disease Conrtrol and Prevention (CDC) test method. Performed By: #### L IPID #### [facility] [address] [id number] [facility] VLDL CHOLESTEROL 28 mg/dL Normal [facility] Comment on above: Order Comment: williamson savita to orr morning Performed By: #### L IPID #### [facility] [address] Serum or plasma high density lipoprotein (HDL) cholesterol measurementOrdered By: Eduardo Monk on 11-18-2022 Cholesterol in HDL [Mass/Vol] 46 mg/dL 23-92 [facility] Comment on above: HDL CHOL ATP-III CLA SSIFICATION Cardiovascular RiskHDL > or equal to 60 mg/dL LOWHDL < 40 mg/dL HIGH Serum or plasma total choles terol/high density lipoprotein (HDL) cholesterol mass ratOrdered By: Eduardo Monk on 11-18-2022 Cholesterol.total/Chol esterol in HDL [Mass ratio] 3.5 {ratio} <5.0 [facility] Thyroid Stimulating Hormoneo n 11-18-2022 TSH Qn 2.13 m[IU]/L Normal 0.45-5.33 [facility] Comment on above: Performed By: #### T SH3, [id number] #### [address] Thyrotropin [Units/volume] i n Serum or PlasmaOrdered By: Eduardo Monk on 11-18-2022 TSH Qn 2.13 m[IU]/L 0.45-5.33 [facility] Triglyceride [Mass/volume] i n Serum or PlasmaOrdered By: Eduardo Monk on 11-18-2022 Triglyceride [Mass/Vol] 144 mg/dL 0-149 [facility] Comment on above: TRIG ATP III CLASSIF ICATIONTRIG less than 150 mg/dL NormalTRIG 150-199 mg/dL Borderline highTRIG 200-500 mg/dL High TRIG greater than 500 mg/dL Very highStandard traceable to the Center for Disease Conrtrol and Prevention (CDC) test method. Vitamin D 25 Hydroxy Totalon 11-18-2022 Vitamin D 25 Hydroxy Total 50.4 ng/mL Normal 30-100 [facility] Comment on above: Result Comment: SKYLER MIN D STATUS 25(OH)VITAMIN D RANGE (ng/mL) Deficient <20 Insufficient 20 to <30 Sufficient 30 to 100 Reference: Bin MF,Lakshmi NC, Cristian SMART, et al. Evaluation,treatment, and prevention of vitamin D deficiency; an Endocrine Society clinical practice guideline. JCEM. 2010; 96(7):1911-30. PERFORMED BY: [facility] [address] [place] [address] PATHOLOGIST SENIOR BACKUP ADMINISTRATOR AN CURRY M.D. Performed By: #### T SH3, [id number] #### [facility] [address] Vitamin D+Metabolites [Mass/ volume] in Serum or PlasmaOrdered By: Eduardo Monk on 11-18-2022 Vitamin D+Metabolites [Mass/Vol] 50.4 ng/mL 30-100 [facility] Comment on above: VITAMIN D STATUS 25( [place])VITAMIN D RANGE (ng/mL) Deficient <20 Insufficient 20 to <30Sufficient 30 to 100Reference: Bin MF,Lakshmi NC, Cristian SMART, et al. Evaluation,treatment, and prevention of vitamin D deficiency; an Endocrine Society clinical practice guideline. JCEM. 2010; 96(7):1911-30. CBC AUTO DIFFon 07-25-2022 BASO # 0.1 103/ul Normal 0.0-0.1 [facility] Comment on above: Performed By: #### A 1C #### [facility] [address] [place] [address] Dr. Bebeto Williamson Basophils/100 WBC (Bld) 0.6 % Normal 0.2-2.0 [facility] Comment on above: Performed By: #### A 1C #### [facility] [address] [place] [address] Dr. Bebeto Williamson EO # 0.2 103/ul Normal 0.0-0.7 [facility] Comment on above: Performed By: #### A 1C #### [facility] [address] [address] [address] Bebeto Williamson Eosinophils/100 WBC (Bld) 2.3 % Normal 0.9-7.0 [facility] Comment on above: Performed By: #### A 1C #### [facility] [address] [place] [address] Dr. Bebeto Williamson Erythrocyte distribution width (RBC) [Ratio] 13.8 % Normal 11.0-15.0 [facility] Comment on above: Performed By: #### A 1C #### [facility] [address] [place] [address] Dr. Bebeto Williamson Hematocrit (Bld) [Volume fraction] 41.2 % Normal 36.0-48.0 [facility] Comment on above: Performed By: #### A 1C #### [facility] [address] [place] [address] Dr. Bebeto Williamson Hemoglobin (Bld) [Mass/Vol] 13.2 g/dL Normal 12.0-16.0 [facility] Comment on above: Performed By: #### A 1C #### [facility] [address] [place] [address] Dr. Bebeto Williamson IG # 0.03 10e3/ul Normal 0.00-0.03 [facility] Comment on above: Performed By: #### A 1C #### [facility] [address] [place] [address] Dr. Bebeto Williamson IG % 0.4 % Normal 0.0-0.5 [facility] Comment on above: Performed By: #### A 1C #### [facility] [address] [place] [address] Dr. Bebeto Williamson LYMPH # 2.1 103/ul Normal 1.2-3.8 [facility] Comment on above: Performed By: #### A 1C #### [facility] [address] [place] [address] Dr. Bebeto Williamson Lymphocytes/100 WBC (Bld) 25.9 % Normal 20.5-60.0 [facility] Comment on above: Performed By: #### A 1C #### [facility] [address] [place] [address] Dr. Bebeto Williamson MANUAL DIFF REQ NO Normal [facility] Comment on above: Performed By: #### A 1C #### [facility] [address] [place] [address] Dr. Bebeto Williamson MCH (RBC) [Entitic mass] 28.0 pg Normal 26.7-34.0 [facility] Comment on above: Performed By: #### A 1C #### [facility] [address] [place] [address] Dr. Bebeto Williamson MCHC (RBC) [Mass/Vol] 32.0 g/dL Normal 29.9-35.2 [facility] Comment on above: Performed By: #### A 1C #### [facility] [address] [place] [address] Dr. Bebeto Williamson MCV (RBC) [Entitic vol] 87.5 fL Normal 81.0-99.0 [facility] Comment on above: Performed By: #### A 1C #### [facility] [address] [place] [address] Dr. Bebeto Williamson MONO # 0.5 103/ul Normal 0.3-0.8 [facility] Comment on above: Performed By: #### A 1C #### [facility] [address] [place] [address] Dr. Bebeto Williamson Monocytes/100 WBC (Bld) 6.6 % Normal 1.7-12.0 [facility] Comment on above: Performed By: #### A 1C #### [facility] [address] [place] [address] Dr. Bebeto Williamson NEUT # 5.1 103/ul Normal 1.4-6.5 [facility] Comment on above: Performed By: #### A 1C #### [facility] [address] [place] [address] Dr. Bebeto Williamson Neutrophils/100 WBC (Bld) 64.2 % Normal 43.0-75.0 [facility] Comment on above: Performed By: #### A 1C #### [facility] [address] [place] [address] Dr. Bebeto Williamson Platelet mean volume (Bld) [Entitic vol] 11.2 fL Normal 9.5-13.5 [facility] Comment on above: Performed By: #### A 1C #### [facility] [address] [place] [address] Dr. Bebeto Williamson PLT 252 103/ul Normal 150-450 [facility] Comment on above: Performed By: #### A 1C #### [facility] [address] [place] [address] Dr. Bebeto Williamson RBC 4.71 106/ul Normal 4.20-5.40 [facility] Comment on above: Performed By: #### A 1C #### [facility] [address] [place] [address] Dr. Bebeto Williamson WBC 8.0 103/ul Normal 4.0-11.0 [facility] Comment on above: Performed By: #### A 1C #### [facility] [address] [address] [address] Bebeto Williamson GLYCOHEMOGLOBIN A1Con 2022 ADA RECOMMENDATION SEE BELOW Normal [facility] Comment on above: Result Comment: ADA RECOMMENDED LIMIT 4.0 - 6.0 ADA THERAPEUTIC TARGET < 7.0 ACTION SUGGESTED > 7.0 Performed By: #### A 1C #### [facility] [address] [place] [address] Dr. Bebeto Williamson Glucose [Mass/Vol] 114 mg/dL Normal [facility] Comment on above: Performed By: #### A 1C #### [facility] [address] [place] [address] Dr. Bebeto Williamson HbA1c (Bld) [Mass fraction] 5.6 % Normal 4.5-6.2 [facility] Comment on above: Performed By: #### A 1C #### [facility] [address] [place] [address] Dr. Bebeto Williamson IRONon 07-25-2022 Iron [Mass/Vol] 60.0 ug/dL Normal 50.0-170.0 [facility] Comment on above: Performed By: #### V ITB12, IRON #### [facility] [address] [place] [address] Dr. Bebeto Williamson LIPID PROFILEon 07-25-2022 CHOL-HDL RATIO NORM SEE BELOW Normal [facility] Comment on above: Result Comment: 3.3 - 4.4 LOW RISK 4.4 - 7.1 AVERAGE RISK 7.1 - 11.0 MODERATE RISK >11.0 HIGH RISK Performed By: #### C MP, LIPID #### [facility] [address] [place] [address] Dr. Bebeto Williamson Cholesterol [Mass/Vol] 144 mg/dL Normal <=200 [facility] Comment on above: Performed By: #### C MP, LIPID #### [facility] [address] [address] [address] Bebeto Williamson Cholesterol in HDL [Mass/Vol] 39 mg/dL Critically low 40-60 [facility] Comment on above: Performed By: #### C MP, LIPID #### [facility] [address] [address] [address] Bebeto Williamson Cholesterol in LDL [Mass/Vol] 74.6 mg/dL Normal [facility] Comment on above: Performed By: #### C MP, LIPID #### [facility] [address] [address] [address] Bebeto Williamson Cholesterol.total/Chol esterol in HDL [Mass ratio] 3.7 {ratio} Normal [facility] Comment on above: Performed By: #### C MP, LIPID #### [facility] [address] [address] [address] Bebeto Williamson HDL NORMAL > or = 60 mg/dl - LO W CARDIOVASCULAR RISK <40 mg/dl - HIGH CARDIOVASCULAR RISK Normal [facility] Comment on above: Performed By: #### C MP, LIPID #### [facility] [address] [address] [address] Bebeto Williamson LDL CALC NORMAL SEE BELOW Normal [facility] Comment on above: Result Comment: <100 mg/dl OPTIMAL 100 - 129 mg/dl NEAR OR ABOVE OPTIMAL 130 - 159 mg/dl BORDERLINE HIGH 160 - 189 mg/dl HIGH >190 mg/dl VERY HIGH Performed By: #### C MP, LIPID #### [facility] [address] [address] [address] Bebeto Williamson Triglyceride [Mass/Vol] 152 mg/dL Critically high <=150 [facility] Comment on above: Performed By: #### C MP, LIPID #### [facility] [address] [address] [address] Bebeto Williamson VLDL CALC 30.4 mg/dL Normal [facility] Comment on above: Performed By: #### C MP, LIPID #### [facility] [address] [place] [address] Dr. Bebeto Williamson PROF 14(COMP METB)on 023 Albumin [Mass/Vol] 3.7 g/dL Normal 3.4-5.0 [facility] Comment on above: Performed By: #### C MP, LIPID #### [facility] [address] [place] [address] Dr. Bebeto Williamson Albumin/Globulin [Mass ratio] 0.9 {ratio} Normal [facility] Comment on above: Performed By: #### C MP, LIPID #### [facility] [address] [place] [address] Dr. Bebeto Williamson ALP [Catalytic activity/Vol] 90 U/L Normal 46-116 [facility] Comment on above: Performed By: #### C MP, LIPID #### [facility] [address] [place] [address] Dr. Bebeto Williamson ALT [Catalytic activity/Vol] 38 U/L Normal 14-59 [facility] Comment on above: Performed By: #### C MP, LIPID #### [facility] [address] [place] [address] Dr. Bebeto Williamson Anion gap [Moles/Vol] 12.1 mmol/L Normal [facility] Comment on above: Performed By: #### C MP, LIPID #### [facility] [address] [place] [address] Dr. Bebeto Williamson AST [Catalytic activity/Vol] 26 U/L Normal 15-37 [facility] Comment on above: Performed By: #### C MP, LIPID #### [facility] [address] [place] [address] Dr. Bebeto Williamson Bilirubin [Mass/Vol] 0.3 mg/dL Normal 0.2-1.0 [facility] Comment on above: Performed By: #### C MP, LIPID #### [facility] [address] [place] [address] Dr. Bebeto Williamson Calcium [Mass/Vol] 9.3 mg/dL Normal 8.5-10.1 [facility] Comment on above: Performed By: #### C MP, LIPID #### [facility] [address] [address] [address] Bebeto Williamson Chloride [Moles/Vol] 107 mmol/L Normal 98-107 [facility] Comment on above: Performed By: #### C MP, LIPID #### [facility] [address] [address] [address] Bebeto Williamson CO2 [Moles/Vol] 27.9 mmol/L Normal 21.0-32.0 [facility] Comment on above: Performed By: #### C MP, LIPID #### [facility] [address] [address] [address] Bebeto Williamson Creatinine [Mass/Vol] 0.95 mg/dL Normal 0.55-1.02 [facility] Comment on above: Performed By: #### C MP, LIPID #### [facility] [address] [place] [address] Dr. Bebeto Williamson EGFR-AF NEW ZEALANDER >60 Normal >=60 [facility] Comment on above: Performed By: #### C MP, LIPID #### [facility] [address] [place] [address] Dr. Bebeto Williamson EGFR-NON AF NEW ZEALANDER 60 mL/min/1.73m2 Normal >=60 [facility] Comment on above: Performed By: #### C MP, LIPID #### [facility] [address] [place] [address] Dr. Bebeto Williamson Globulin (S) [Mass/Vol] 3.9 g/dL Normal [facility] Comment on above: Performed By: #### C MP, LIPID #### [facility] [address] [address] [address] Bebeto Williamson Glucose [Mass/Vol] 108 mg/dL Critically high 74-106 [facility] Comment on above: Performed By: #### C MP, LIPID #### [facility] [address] [place] [address] Dr. Bebeto Williamson Potassium [Moles/Vol] 4.0 mmol/L Normal 3.5-5.1 [facility] Comment on above: Performed By: #### C MP, LIPID #### [facility] [address] [place] [address] Dr. Bebeto Williamson Protein [Mass/Vol] 7.6 g/dL Normal 6.4-8.2 [facility] Comment on above: Performed By: #### C MP, LIPID #### [facility] [address] [place] [address] Dr. Bebeto Williamson Sodium [Moles/Vol] 143 mmol/L Normal 136-145 [facility] Comment on above: Performed By: #### C MP, LIPID #### [facility] [address] [place] [address] Dr. Bebeto Williamson Urea nitrogen [Mass/Vol] 15.0 mg/dL Normal 7.0-18.0 [facility] Comment on above: Performed By: #### C MP, LIPID #### [facility] [address] [place] [address] Dr. Bebeto Williamson Urea nitrogen/Creatinine [Mass ratio] 15.8 mg/mg Normal [facility] Comment on above: Performed By: #### C MP, LIPID #### [facility] [address] [place] [address] Dr. Bebeto Williamson UA RANDOM W/MICROSCOPICon BACTERIA NONE SEEN Normal NONE SEEN [facility] Comment on above: Performed By: #### A 1C #### [facility] [address] [place] [address] Dr. Bebeto Williamson Bilirubin Ql (U) Negative Normal NEGATIVE [facility] Comment on above: Performed By: #### A 1C #### [facility] [address] [place] [address] Dr. Bebeto Williamson CAST NONE SEEN Normal NONE SEEN [facility] Comment on above: Performed By: #### A 1C #### [facility] [address] [place] [address] Dr. Bebeto Williamson Clarity (U) CLEAR Normal CLEAR [facility] Comment on above: Performed By: #### A 1C #### [facility] [address] [place] [address] Dr. Bebeto Williamson Color (U) YELLOW Normal YELLOW [facility] Comment on above: Performed By: #### A 1C #### [facility] [address] [address] [address] Bebeto Williamson Crystals LM Nom (Urine sed) NONE SEEN Normal NONE SEEN [facility] Comment on above: Performed By: #### A 1C #### [facility] [address] [address] [address] Bebeto Williamson Epithelial cells LM Ql (Urine sed) NONE SEEN Normal NONE SEEN /RARE [facility] Comment on above: Performed By: #### A 1C #### [facility] [address] [address] [address] Bebeto Williamson Glucose Ql (U) Negative Normal NEGATIVE [facility] Comment on above: Performed By: #### A 1C #### [facility] [address] [place] [address] Dr. Bebeto Williamson Hemoglobin Ql (U) Negative Normal NEGATIVE [facility] Comment on above: Performed By: #### A 1C #### [facility] [address] [place] [address] Dr. Bebeto Williamson Ketones Ql (U) Negative Normal NEGATIVE [facility] Comment on above: Performed By: #### A 1C #### [facility] [address] [place] [address] Dr. Bebeto Williamson LEUKOCYTES Negative Normal NEGATIVE [facility] Comment on above: Performed By: #### A 1C #### [facility] [address] [place] [address] Dr. Bebeto Williamson MUCOUS NONE SEEN Normal NONE SEEN [facility] Comment on above: Performed By: #### A 1C #### [facility] [address] [place] [address] Dr. Bebeto Williamson Nitrite Ql (U) Negative Normal NEGATIVE [facility] Comment on above: Performed By: #### A 1C #### [facility] [address] [place] [address] Dr. Bebeto Williamson pH (U) 5.5 [pH] Normal 5-9 [facility] Comment on above: Performed By: #### A 1C #### [facility] [address] [place] [address] Dr. Bebeto Williamson RBC NONE SEEN Abnormal 0-2 [facility] Comment on above: Performed By: #### A 1C #### [facility] [address] [place] [address] Dr. Bebeto Williamson SPEC GRAVITY 1.030 Abnormal 1.005-<=1.02 5 [facility] Comment on above: Performed By: #### A 1C #### [facility] [address] [place] [address] Dr. Bebeto Williamson UA PROTEIN Negative Normal NEGATIVE/ TRACE [facility] Comment on above: Performed By: #### A 1C #### [facility] [address] [place] [address] Dr. Bebeto Williamson Urobilinogen Qn (U) 0.2 {Katerin'U}/dL Normal 0.2 - 1. 0 [facility] Comment on above: Performed By: #### A 1C #### [facility] [address] [place] [address] Dr. Bebeto Williamson WBC NONE SEEN Normal NONE SEEN [facility] Comment on above: Performed By: #### A 1C #### [facility] [address] [place] [address] Dr. Bebeto Williamson VITAMIN B12on 07-25-2022 Cobalamin (Vitamin B12) [Mass/Vol] 1684.0 pg/mL Critically high 193.0-986.0 [facility] Comment on above: Performed By: #### V ITB12, IRON #### [facility] [address] [place] [address] Dr. Bebeto Williamson PROF CHEM 8 (BAS METB)on Anion gap [Moles/Vol] 12.2 mmol/L Normal [facility] Comment on above: Performed By: #### B MP #### [facility] [address] [place] [address] Dr. Bebeto Williamson Calcium [Mass/Vol] 8.9 mg/dL Normal 8.5-10.1 [facility] Comment on above: Performed By: #### B MP #### [facility] [address] [address] [address] Bebeto Williamson Chloride [Moles/Vol] 105 mmol/L Normal 98-107 [facility] Comment on above: Performed By: #### B MP #### [facility] [address] [address] [address] Bebeto Williamson CO2 [Moles/Vol] 29.6 mmol/L Normal 21.0-32.0 [facility] Comment on above: Performed By: #### B MP #### [facility] [address] [address] [address] Bebeto Williamson Creatinine [Mass/Vol] 0.95 mg/dL Normal 0.55-1.02 [facility] Comment on above: Performed By: #### B MP #### [facility] [address] [place] [address] Dr. Bebeto Williamson EGFR-AF NEW ZEALANDER >60 Normal >=60 [facility] Comment on above: Performed By: #### B MP #### [facility] [address] [address] [address] Bebeto Williamson EGFR-NON AF NEW ZEALANDER 60 mL/min/1.73m2 Normal >=60 [facility] Comment on above: Performed By: #### B MP #### [facility] [address] [address] [address] Bebeto Williamson Glucose [Mass/Vol] 101 mg/dL Normal 74-106 [facility] Comment on above: Performed By: #### B MP #### [facility] [address] [address] [address] Bebeto Williamson Potassium [Moles/Vol] 3.8 mmol/L Normal 3.5-5.1 [facility] Comment on above: Performed By: #### B MP #### [facility] [address] [place] [address] Dr. Bbeeto Williamson Sodium [Moles/Vol] 143 mmol/L Normal 136-145 [facility] Comment on above: Performed By: #### B MP #### [facility] [address] [address] [address] Bebeto Williamson Urea nitrogen [Mass/Vol] 16.0 mg/dL Normal 7.0-18.0 [facility] Comment on above: Performed By: #### B MP #### [facility] [address] [place] [address] Dr. Bebeto Williamson Urea nitrogen/Creatinine [Mass ratio] 16.8 mg/mg Normal [facility] Comment on above: Performed By: #### B MP #### [facility] [address] [place] [address] Dr. Bebeto Williamson CBC AUTO DIFFon 11-21-2021 BASO # 0.1 103/ul Normal 0.0-0.1 [facility] Comment on above: Performed By: #### A 1C #### [facility] [address] [place] [address] Dr. Bebeto Williamson Basophils/100 WBC (Bld) 1.0 % Normal 0.2-2.0 [facility] Comment on above: Performed By: #### A 1C #### [facility] [address] [place] [address] Dr. Bebeto Williamson EO # 0.2 103/ul Normal 0.0-0.7 [facility] Comment on above: Performed By: #### A 1C #### [facility] [address] [place] [address] Dr. Bebeto Williamson Eosinophils/100 WBC (Bld) 3.3 % Normal 0.9-7.0 [facility] Comment on above: Performed By: #### A 1C #### [facility] [address] [place] [address] Dr. Bebeto Williamson Erythrocyte distribution width (RBC) [Ratio] 13.8 % Normal 11.0-15.0 [facility] Comment on above: Performed By: #### A 1C #### [facility] [address] [place] [address] Dr. Bebeto Williamson Hematocrit (Bld) [Volume fraction] 38.8 % Normal 36.0-48.0 [facility] Comment on above: Performed By: #### A 1C #### [facility] [address] [place] [address] Dr. Bebeto Williamson Hemoglobin (Bld) [Mass/Vol] 12.5 g/dL Normal 12.0-16.0 [facility] Comment on above: Performed By: #### A 1C #### [facility] [address] [place] [address] Dr. Bebeto Williamson IG # 0.02 10e3/ul Normal 0.00-0.03 [facility] Comment on above: Performed By: #### A 1C #### [facility] [address] [place] [address] Dr. Bebeto Williamson IG % 0.3 % Normal 0.0-0.5 [facility] Comment on above: Performed By: #### A 1C #### [facility] [address] [place] [address] Dr. Bebeto Williamson LYMPH # 1.9 103/ul Normal 1.2-3.8 [facility] Comment on above: Performed By: #### A 1C #### [facility] [address] [place] [address] Dr. Bebeto Williamson Lymphocytes/100 WBC (Bld) 29.6 % Normal 20.5-60.0 [facility] Comment on above: Performed By: #### A 1C #### [facility] [address] [place] [address] Dr. Bebeto Williamson MANUAL DIFF REQ NO Normal [facility] Comment on above: Performed By: #### A 1C #### [facility] [address] [place] [address] Dr. Bebeto Williamson MCH (RBC) [Entitic mass] 28.0 pg Normal 26.7-34.0 [facility] Comment on above: Performed By: #### A 1C #### [facility] [address] [place] [address] Dr. Bebeto Williamson MCHC (RBC) [Mass/Vol] 32.2 g/dL Normal 29.9-35.2 [facility] Comment on above: Performed By: #### A 1C #### [facility] [address] [place] [address] Dr. Bebeto Williamson MCV (RBC) [Entitic vol] 86.8 fL Normal 81.0-99.0 [facility] Comment on above: Performed By: #### A 1C #### [facility] [address] [place] [address] Dr. Bebeto Williamson MONO # 0.4 103/ul Normal 0.3-0.8 [facility] Comment on above: Performed By: #### A 1C #### [facility] [address] [place] [address] Dr. Bebeto Williamson Monocytes/100 WBC (Bld) 5.7 % Normal 1.7-12.0 [facility] Comment on above: Performed By: #### A 1C #### [facility] [address] [place] [address] Dr. Bebeto Williamson NEUT # 3.8 103/ul Normal 1.4-6.5 [facility] Comment on above: Performed By: #### A 1C #### [facility] [address] [place] [address] Dr. Bebeto Williamson Neutrophils/100 WBC (Bld) 60.1 % Normal 43.0-75.0 [facility] Comment on above: Performed By: #### A 1C #### [facility] [address] [place] [address] Dr. Bebeto Williamson Platelet mean volume (Bld) [Entitic vol] 11.0 fL Normal 9.5-13.5 [facility] Comment on above: Performed By: #### A 1C #### [facility] [address] [place] [address] Dr. Bebeto Williamson PLT 264 103/ul Normal 150-450 [facility] Comment on above: Performed By: #### A 1C #### [facility] [address] [place] [address] Dr. Bebeto Williamson RBC 4.47 106/ul Normal 4.20-5.40 [facility] Comment on above: Performed By: #### A 1C #### [facility] [address] [place] [address] Dr. Bebeto Williamson WBC 6.3 103/ul Normal 4.0-11.0 [facility] Comment on above: Performed By: #### A 1C #### [facility] [address] [place] [address] Dr. Bebeto Williamson GLYCOHEMOGLOBIN A1Con 2021 ADA RECOMMENDATION SEE BELOW Normal [facility] Comment on above: Result Comment: ADA RECOMMENDED LIMIT 4.0 - 6.0 ADA THERAPEUTIC TARGET < 7.0 ACTION SUGGESTED > 7.0 Performed By: #### A 1C #### [facility] [address] [address] [address] Bebeto Williamson Glucose [Mass/Vol] 105 mg/dL Normal [facility] Comment on above: Performed By: #### A 1C #### [facility] [address] [place] [address] Dr. Bebeto Williamson HbA1c (Bld) [Mass fraction] 5.3 % Normal 4.5-6.2 [facility] Comment on above: Performed By: #### A 1C #### [facility] [address] [place] [address] Dr. Bebeto Williamson IRONon 11-21-2021 Iron [Mass/Vol] 59.0 ug/dL Normal 50.0-170.0 [facility] Comment on above: Performed By: #### A 1C #### [facility] [address] [place] [address] Dr. Bebeto Williamson LIPID PROFILEon 11-21-2021 CHOL-HDL RATIO NORM SEE BELOW Normal [facility] Comment on above: Result Comment: 3.3 - 4.4 LOW RISK 4.4 - 7.1 AVERAGE RISK 7.1 - 11.0 MODERATE RISK >11.0 HIGH RISK Performed By: #### C MP, LIPID #### [facility] [address] [place] [address] Dr. Bebeto Williamson Cholesterol [Mass/Vol] 139 mg/dL Normal <=200 [facility] Comment on above: Performed By: #### C MP, LIPID #### [facility] [address] [place] [address] Dr. Bebeto Williamson Cholesterol in HDL [Mass/Vol] 35 mg/dL Critically low 40-60 [facility] Comment on above: Performed By: #### C MP, LIPID #### [facility] [address] [address] [address] Bebeto Williamson Cholesterol in LDL [Mass/Vol] 69.6 mg/dL Normal [facility] Comment on above: Performed By: #### C MP, LIPID #### [facility] [address] [address] [address] Bebeto Williamson Cholesterol.total/Chol esterol in HDL [Mass ratio] 4.0 {ratio} Normal [facility] Comment on above: Performed By: #### C MP, LIPID #### [facility] [address] [address] [address] Bebeto Williamson HDL NORMAL > or = 60 mg/dl - LO W CARDIOVASCULAR RISK <40 mg/dl - HIGH CARDIOVASCULAR RISK Normal [facility] Comment on above: Performed By: #### C MP, LIPID #### [facility] [address] [place] [address] Dr. Bebeto Williamson LDL CALC NORMAL SEE BELOW Normal [facility] Comment on above: Result Comment: <100 mg/dl OPTIMAL 100 - 129 mg/dl NEAR OR ABOVE OPTIMAL 130 - 159 mg/dl BORDERLINE HIGH 160 - 189 mg/dl HIGH >190 mg/dl VERY HIGH Performed By: #### C MP, LIPID #### [facility] [address] [place] [address] Dr. Bebeto Williamson Triglyceride [Mass/Vol] 172 mg/dL Critically high <=150 [facility] Comment on above: Performed By: #### C MP, LIPID #### [facility] [address] [address] [address] Bebeto Williamson VLDL CALC 34.4 mg/dL Normal [facility] Comment on above: Performed By: #### C MP, LIPID #### [facility] [address] [address] [address] Bebeto Williamson PROF 14(COMP METB)on 022 Albumin [Mass/Vol] 3.8 g/dL Normal 3.4-5.0 [facility] Comment on above: Performed By: #### C MP, LIPID #### [facility] [address] [place] [address] Dr. Bebeto Williamson Albumin/Globulin [Mass ratio] 1.1 {ratio} Normal [facility] Comment on above: Performed By: #### C MP, LIPID #### [facility] [address] [place] [address] Dr. Bebeto Williamson ALP [Catalytic activity/Vol] 96 U/L Normal 46-116 [facility] Comment on above: Performed By: #### C MP, LIPID #### [facility] [address] [place] [address] Dr. Bebeto Williamson ALT [Catalytic activity/Vol] 25 U/L Normal 14-59 [facility] Comment on above: Performed By: #### C MP, LIPID #### [facility] [address] [place] [address] Dr. Bebeot Williamson Anion gap [Moles/Vol] 11.8 mmol/L Normal [facility] Comment on above: Performed By: #### C MP, LIPID #### [facility] [address] [place] [address] Dr. Bebeto Williamson AST [Catalytic activity/Vol] 20 U/L Normal 15-37 [facility] Comment on above: Performed By: #### C MP, LIPID #### [facility] [address] [place] [address] Dr. Bebeto Williamson Bilirubin [Mass/Vol] 0.4 mg/dL Normal 0.2-1.0 [facility] Comment on above: Performed By: #### C MP, LIPID #### [facility] [address] [place] [address] Dr. Bebeto Williamson Calcium [Mass/Vol] 8.8 mg/dL Normal 8.5-10.1 [facility] Comment on above: Performed By: #### C MP, LIPID #### [facility] [address] [place] [address] Dr. Bebeto Williamson Chloride [Moles/Vol] 106 mmol/L Normal 98-107 [facility] Comment on above: Performed By: #### C MP, LIPID #### [facility] [address] [place] [address] Dr. Bebeto Williamson CO2 [Moles/Vol] 27.0 mmol/L Normal 21.0-32.0 [facility] Comment on above: Performed By: #### C MP, LIPID #### [facility] [address] [address] [address] Bebeto Williamson Creatinine [Mass/Vol] 0.97 mg/dL Normal 0.55-1.02 [facility] Comment on above: Performed By: #### C MP, LIPID #### [facility] [address] [address] [address] Beebto Williamson EGFR-AF NEW ZEALANDER >60 Normal >=60 [facility] Comment on above: Performed By: #### C MP, LIPID #### [facility] [address] [address] [address] Bebeto Williamson EGFR-NON AF NEW ZEALANDER 59 mL/min/1.73m2 Critically low >=60 [facility] Comment on above: Performed By: #### C MP, LIPID #### [facility] [address] [address] [address] Bebeto Williamson Globulin (S) [Mass/Vol] 3.4 g/dL Normal [facility] Comment on above: Performed By: #### C MP, LIPID #### [facility] [address] [address] [address] Bebeto Williamson Glucose [Mass/Vol] 103 mg/dL Normal 74-106 [facility] Comment on above: Performed By: #### C MP, LIPID #### [facility] [address] [address] [address] Bebeto Williamson Potassium [Moles/Vol] 3.8 mmol/L Normal 3.5-5.1 [facility] Comment on above: Performed By: #### C MP, LIPID #### [facility] [address] [address] [address] Bebeto Williamson Protein [Mass/Vol] 7.2 g/dL Normal 6.4-8.2 [facility] Comment on above: Performed By: #### C MP, LIPID #### [facility] [address] [address] [address] Bebeto Williamson Sodium [Moles/Vol] 141 mmol/L Normal 136-145 [facility] Comment on above: Performed By: #### C MP, LIPID #### [facility] [address] [place] [address] Dr. Bebeto Williamson Urea nitrogen [Mass/Vol] 11.0 mg/dL Normal 7.0-18.0 [facility] Comment on above: Performed By: #### C MP, LIPID #### [facility] [address] [place] [address] Dr. Bebeto Williamson Urea nitrogen/Creatinine [Mass ratio] 11.3 mg/mg Normal [facility] Comment on above: Performed By: #### C MP, LIPID #### [facility] [address] [place] [address] Dr. Bebeto Williamson URIC ACID SERUMon 11-21-2021 Urate [Mass/Vol] 7.3 mg/dL Critically high 2.6-6.0 [facility] Comment on above: Performed By: #### A 1C #### [facility] [address] [place] [address] Dr. Bebeto Williamson VITAMIN B12on 11-21-2021 Cobalamin (Vitamin B12) [Mass/Vol] 2123.0 pg/mL Critically high 193.0-986.0 [facility] Comment on above: Performed By: #### A 1C #### [facility] [address] [place] [address] Dr. Bebeto Williamson Physician Referralon 022 Physician Referral [phone] [id number] Normal [facility] KNEE RIGHT 1 OR 2 VWSon KNEE RIGHT 1 OR 2 VWS [facility] Department of Radiology [address] [place] [id number] ======== Patient Name: MICHELLE BE : 1960 Sex: F Age: Race: White Pt. Location: 84 Patient Status: O Ordered Date: 02/08/2019 10:40:00 AM Completed Date: 02/08/2019 10:38 AM Requesting Provider: AHSAN BINGHAM Attending Provider: AHSAN BINGHAM Report Copy To: Signs & Symptoms: S82.001A Unsp fracture of right patella, init for clos fx I10 History: [place] Comments: , , , Ordering Provider - [...] Electronically signed by:Debra Del Cid. Transcribed by: [email or web address], User Resident: Electronically Signed by: DEBRA DEL CID @ 02/08/2019 11:16 AM Normal [facility] Comment on above: Order Comment: , Vie ws (X-RAY, KNEE): Radiologic Protocol , Weight Bearing?: N , With or Without Brace/Cast/Collar: With , Views (X-RAY, KNEE): Radiologic Protocol , Weight Bearing?: N , With or Without Brace/Cast/Collar: With , , , Ordering Provider - AHSAN BINGHAM PA-C , KNEE RIGHT 1 OR 2 [facility] KNEE RIGHT 1 OR 2 S [facility] Department of Radiology [address] [place] [id number] ======== Patient Name: MICHELLE BE : 1960 Sex: F Age: Race: White Pt. Location: Patient Status: Ordered Date: 12/07/2018 10:20:00 AM Completed Date: 12/07/2018 10:20 AM Requesting Provider: AHSAN BINGHAM Attending Provider: Report Copy To: Signs & Symptoms: S82.001A Unsp fracture of right patella, init for clos fx I10 History: [place] Comments: , , , Ordering Provider - [...] complications. Electronically signed by:Tomasz Stoll. Transcribed by: [email or web address], User Resident: Electronically Signed by: TOMASZ STOLL @ 12/07/2018 11:14 AM Normal [facility] Comment on above: Order Comment: , Vie ws (X-RAY, KNEE): Radiologic Protocol , Weight Bearing?: N , With or Without Brace/Cast/Collar: With , Views (X-RAY, KNEE): Radiologic Protocol , Weight Bearing?: N , With or Without Brace/Cast/Collar: With , , , Ordering Provider - AHSAN BINGHAM PA-C , KNEE RIGHT 1 OR 2 [facility] KNEE RIGHT 1 OR 2 [facility] Department of Radiology [address] [place] [id number] ======== Patient Name: MICHELLE BE : 1960 Sex: F Age: Race: White Pt. 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 Transcribed by: [email or web address], User Resident: Electronically Signed by: ANUP ELLISON @ 10/06/2018 02:48 PM Normal [facility] Comment on above: Order Comment: , Mabel ws (X-RAY, KNEE): Radiologic Protocol , Weight Bearing?: N , With or Without Brace/Cast/Collar: With , Views (X-RAY, KNEE): Radiologic Protocol , Weight Bearing?: N , With or Without Brace/Cast/Collar: With , , , Ordering Provider - AHSAN BINGHAM PA-C , [facility] KNEE RIGHT 1 OR 2 VWS [facility] Department of Radiology [address] [place] [phone] ======== Patient Name: MICHELLE BE : [...] effusion Electronically signed by:Anup Ellison. Transcribed by: [email or web address], User Resident: Electronically Signed by: ANUP ELLISON @ 08/26/2018 04:56 PM Normal [facility] Comment on above: Order Comment: , Vie ws (X-RAY, KNEE): Radiologic Protocol , Weight Bearing?: N , With or Without Brace/Cast/Collar: With , Views (X-RAY, KNEE): Radiologic Protocol , Weight Bearing?: N , With or Without Brace/Cast/Collar: With , , , Ordering Provider - AHSAN BINGHAM PA-C , KNEE RIGHT 1 OR 2 [facility] 07-06 KNEE RIGHT 1 OR 2 S [facility] Department of Radiology [address] [place] [phone] ======== Patient Name: MICHELLE BE : [...] compartment Electronically signed by:Anup Ellison. Transcribed by: [email or web address], User Resident: Electronically Signed by: ANUP ELLISON @ 07/29/2018 03:41 PM Normal [facility] Comment on above: Order Comment: , Mabel ws (X-RAY, KNEE): Radiologic Protocol , Weight Bearing?: N , With or Without Brace/Cast/Collar: With , Views (X-RAY, KNEE): Radiologic Protocol , Weight Bearing?: N , With or Without Brace/Cast/Collar: With , , , Ordering Provider - AHSAN BINGHAM PA-C , KNEE RIGHT 3 Son 9 KNEE RIGHT 3 VWS [facility] Department of Radiology [address] [place] [id number] ======== Patient Name: MICHELLE BE : 1960 Sex: F Age: Race: White Pt. Location: 84 Patient Status: Ordered Date: 07/15/2018 8:45:00 AM Completed Date: 07/15/2018 08:47 AM Requesting Provider: AHSAN BINGHAM Attending Provider: Report Copy To: Signs & Symptoms: S82.001A Unsp fracture of right patella, init for clos fx I10 History: [place] Comments: , , , Ordering Provider - AHSAN BINGHAM PA-C , Exam: KNEE RIGHT 3 [facility] ======== KNEE RIGHT 3 [facility] 07/15/2018 8:47 AM EDT SIGNS AND SYMPTOMS: [...] knee Electronically signed by:Anup Ellison. Transcribed by: [email or web address], User Resident: Electronically Signed by: ANUP ELLISON @ 07/15/2018 03:31 PM Normal [facility] Comment on above: Order Comment: , Vie ws (X-RAY, KNEE): Radiologic Protocol , Weight Bearing?: N , With or Without Brace/Cast/Collar: With , Views (X-RAY, KNEE): Radiologic Protocol , Weight Bearing?: N , With or Without Brace/Cast/Collar: With , , , Ordering Provider - AHSAN BINGHAM PA-C , Operative Reporton 9 Operative Report MR#: [id number] S [facility] Pt. Name: Michelle Be Room #: 0C [...] P/Paolo Duarte MD Date Trans: 07/03/2018 04:28 A/mmo [id number] Normal [facility] *ANAEROBIC CULTUREon 019 *ANAEROBIC CULTURE Clinical Report: (D) Specimen/Source: SWAB/RT KNEE Collected: 07/02/2018 13:53 Status: Final Last Updated: 07/07/2018 08:02 CULT RES (Final) No Anaerobes Isolated 5 Days Normal [facility] Comment on above: Performed By: #### 3 0312 #### [address] *WOUND CULTUREon 07-02-2018 *WOUND CULTURE Clinical Report: (D) Specimen/Source: WOUND/INTRAOP SPEC Collected: 07/02/2018 13:53 Status: Final Last Updated: 07/07/2018 10:13 (1) #1 RT KNEE GRAM (Final) Rare Polys No Bacteria Seen CULT RES (Final) No Growth Day 5 Normal [facility] Comment on above: Order Comment: #1 RT KNEE Performed By: #### 3 0343 #### [address] KNEE RIGHT 1 OR 2 VWSon 06-05 KNEE RIGHT 1 OR 2 S [facility] Department of Radiology [address] [place] [phone] ======== Patient Name: MICHELLE BE : [...] Electronically signed by:Debra Del Cid. Transcribed by: [email or web address], User Resident: Electronically Signed by: DEBRA DEL CID @ 07/02/2018 02:03 PM Normal [facility] Comment on above: Order Comment: ORIF VS PERCUTANEOUS FIXATION RIGHT PATELLA POC GLUCOSE LABon 07-02-2018 Glucose [Mass/Vol] 108 mg/dL High 70-100 [facility] Comment on above: Performed By: #### 8 5499 #### [facility] [address] [place] [address], [facility] APTTon 06-30-2018 aPTT Coag (Bld) [Time] 30.6 s Normal 25.0-35.0 Th e [facility] Comment on above: Result Comment: ALL RESULTS [...] THIS PURPOSE. Performed By: #### 5 6101, [address]146 #### [facility] [address] [place] [address], [facility] BASIC METABOLIC PANELon 06-05 Calcium [Mass/Vol] 9.7 mg/dL Normal 8.6-10.3 [facility] Comment on above: Performed By: #### 0 0071 #### [facility] [address] [place] [id number], [facility] Chloride [Moles/Vol] 102 mmol/L Normal 98-107 [facility] Comment on above: Performed By: #### 0 0071 #### [facility] [address] [place] [address], [place] CO2 [Moles/Vol] 28 mmol/L Normal 21-31 [facility] Comment on above: Performed By: #### 0 0071 #### [facility] [address] [place] [address], [facility] Creatinine [Mass/Vol] 1.20 mg/dL Normal 0.60-1.20 [facility] Comment on above: Performed By: #### 0 0071 #### [facility] [address] [place] [address], [place] GFR/1.73 sq M predicted among blacks MDRD (S/P/Bld) [Vol rate/Area] 56 ml/min/1.73sq m Abnormal >60 [facility] Comment on above: Performed By: #### 0 0071 #### [facility] [address] [place] [address], [place] GFR/1.73 sq M predicted among non-blacks MDRD (S/P/Bld) [Vol rate/Area] 47 ml/min/1.73sq m Abnormal >60 [facility] Comment on above: Performed By: #### 0 0071 #### [facility] [address] [place] [address], [place] Glucose [Mass/Vol] 97 mg/dL Normal 70-100 [facility] Comment on above: Performed By: #### 0 0071 #### [facility] [address] Potassium [Moles/Vol] 4.1 mmol/L Normal 3.5-5.1 [facility] Comment on above: Performed By: #### 0 0071 #### [facility] [address] [facility]. [address] Sodium [Moles/Vol] 137 mmol/L Normal 136-145 [facility] Comment on above: Performed By: #### 0 0071 #### [facility] [address] Urea nitrogen [Mass/Vol] 19 mg/dL Normal 7-25 [facility] Comment on above: Performed By: #### 0 0071 #### [facility] [address] CBC W/DIFFon 06-30-2018 ABS BASOPHILS 0.1 10*3/uL Normal 0.0-0.2 [facility] Comment on above: Performed By: #### 5 010 #### [facility] [address] ABS IMM GRANS 0.0 10*3/uL Normal 0.0-0.2 [facility] Comment on above: Performed By: #### 5 3 #### [facility] [address] ABS NEUTROPHILS 6.4 10*3/uL Normal 1.6-7.6 [facility] Comment on above: Performed By: #### 5 102 #### [facility] [address] Basophils/100 WBC (Bld) 0.7 % Normal 0.0-1.0 [facility] Comment on above: Performed By: #### 5 3 #### [facility] [address] Eosinophils (Bld) [#/Vol] 0.2 10*3/uL Normal 0.0-0.5 [facility] Comment on above: Performed By: #### 5 0103 #### [facility] [address] [place] [address], [facility] Eosinophils/100 WBC (Bld) 1.5 % Normal 0.0-6.0 [facility] Comment on above: Performed By: #### 5 0103 #### [facility] [address] [place] [address], [facility] Erythrocyte distribution width (RBC) [Ratio] 14.4 % Normal 11.5-15.0 [facility] Comment on above: Performed By: #### 5 0103 #### [facility] [address] [place] [address], [facility] Hematocrit (Bld) [Volume fraction] 40.6 % Normal 36.0-45.0 [facility] Comment on above: Performed By: #### 5 0103 #### [facility] [address] [place] [address], [facility] Hemoglobin (Bld) [Mass/Vol] 13.3 g/dL Normal 12.0-15.0 [facility] Comment on above: Performed By: #### 5 0103 #### [facility] [address] [place] [address], [facility] IMMATURE GRANS 0.4 % Normal 0.0-1.0 [facility] Comment on above: Performed By: #### 5 0103 #### [facility] [address] [place] [address], [facility] Lymphocytes (Bld) [#/Vol] 2.6 10*3/uL Normal 1.2-4.0 [facility] Comment on above: Performed By: #### 5 3 #### [facility] [address] [place] [id number], [facility] Lymphocytes/100 WBC (Bld) 26.5 % Normal 20.0-45.0 [facility] Comment on above: Performed By: #### 5 0103 #### [facility] [address] [place] [address], [facility] MCH (RBC) [Entitic mass] 27.4 pg Normal 27.0-33.0 [facility] Comment on above: Performed By: #### 5 0103 #### [facility] [address] [place] [address], [facility] MCHC (RBC) [Mass/Vol] 32.8 g/dL Normal 32.0-35.0 [facility] Comment on above: Performed By: #### 5 0103 #### [facility] [address] [place] [address], [facility] MCV (RBC) [Entitic vol] 83.5 fL Normal 82.0-98.0 [facility] Comment on above: Performed By: #### 5 0103 #### [facility] [address] [place] [address], [facility] Monocytes (Bld) [#/Vol] 0.5 10*3/uL Normal 0.1-1.0 [facility] Comment on above: Performed By: #### 5 0103 #### [facility] [address] [place] [address], [facility] MONOS 5.0 % Normal 5.0-12.0 [facility] Comment on above: Performed By: #### 5 0103 #### [facility] [address] [place] [address], [facility] Neutrophils/100 WBC (Bld) 65.9 % Normal 40.0-72.0 [facility] Comment on above: Performed By: #### 5 3 #### [facility] [address] [place] [address], [facility] Nucleated RBC/100 WBC (Bld) [Ratio] 0 % Normal 0-0 [facility] Comment on above: Performed By: #### 5 0103 #### [facility] [address] [facility]. [address] PLAT CNT 290 10*3/uL Normal 150-400 [facility] Comment on above: Performed By: #### 5 0103 #### [facility] [address] [place] [address], [facility] RBC (Bld) [#/Vol] 4.86 10*6/uL Normal 3.80-5.00 [facility] Comment on above: Performed By: #### 5 0103 #### [facility] [address] [place] [address], [facility] WBC (Bld) [#/Vol] 9.68 10*3/uL Normal 4.00-10.60 [facility] Comment on above: Performed By: #### 5 0103 #### [facility] [address] KNEE RIGHT 1 OR 2 VWSon - KNEE RIGHT 1 OR 2 VWS [facility] Department of Radiology [address] [place] [phone] ======== Patient Name: MICHELLE BE : 1960 Sex: F Age: Race: White Pt. Location: 84 Patient Status: Ordered Date: 06/30/2018 10:30:00 AM [...] Electronically signed by:Debra Del Cid. Transcribed by: [email or web address], User Resident: Electronically Signed by: DEBRA DEL CID @ 06/30/2018 11:52 AM [facility] Comment on above: Order Comment: , Mabel ws (X-RAY, KNEE): Radiologic Protocol , Weight Bearing?: N , With or Without Brace/Cast/Collar: With , Views (X-RAY, KNEE): Radiologic Protocol , Weight Bearing?: N , With or Without Brace/Cast/Collar: With , , , Ordering Provider - AHSAN BINGHAM PA-C , PROTHROMBIN TIMEon 9 INR Coag (PPP) [Relative time] 0.98 {INR} Normal 0.91-1.16 [facility] Comment on above: Result Comment: ACCC P [...] CHEST 1995;108:231S-246S. Performed By: #### 5 6101, [address] #### [address] PT Coag (PPP) [Time] 13.0 s Normal 12.3-14.8 [facility] Comment on above: Result Comment: ALL RESULTS MUST BE INTERPRETED WITH RESPECT TO BLOOD DRAWING ARTIFACT OR DILUTION ERROR OF ANTICOAGULANT AT THE TIME OF SAMPLING. Performed By: #### 5 6101, [address] #### [address] KNEE RIGHT 3 VWSon 9 KNEE RIGHT 3 S [facility] Department of Radiology [address] [place] [phone] ======== Patient Name: MICHELLE BE : 1960 Sex: F Age: Race: White Pt. Location: 84 Patient Status: O Ordered Date: 06/15/2018 1:35:00 PM Completed Date: 06/15/2018 01:34 PM Requesting Provider: AMPARO ZHANG Attending Provider: AMPARO ZHANG Report Copy To: ADELAIDA CARRION Signs & Symptoms: M17.11 Unilateral primary osteoarthritis, right knee I10 History: [place] Comments: , Weight Bearing?: Y , Weight Bearing?: Y , , , Ordering Provider - AMPARO ZHANG PA-C , Exam: KNEE RIGHT 3 S ======== KNEE RIGHT 3 S 06/15/2018 1:34 PM EDT SIGNS AND SYMPTOMS: [...] effusion Electronically signed by:Anup Ell[place]. Transcribed by: [email or web address], User Resident: Electronically Signed by: ANUP ELLISON @ 06/15/2018 03:50 PM Normal [facility] Comment on above: Order Comment: , Isaiah ght Bearing?: Y , Weight Bearing?: Y , , , Ordering Provider - AMPARO ZHANG PA-C , Vital Signs Date Time Vital Sign Value Performing Clinician Facility 05-18-2023 16:30-0500 Body height 162.6 cm Adelaida Carrion [employer] Work Phone: [facility] 05-18-2023 16:30-0500 Body mass index (BMI) [Ratio] 47.89 kg/m2 Adelaida Carrion [employer] Work Phone: [facility] 05-18-2023 16:30-0500 Body temperature 97.3 [degF] Adelaida Carrion [employer] Work Phone: [facility] 05-18-2023 16:30-0500 Body weight 126.55 kg Adelaida Carrion [employer] Work Phone: [facility] 05-18-2023 16:30-0500 Diastolic blood pressure 80 mm[Hg] Adelaida Carrion [employer] Work Phone: [facility] 05-18-2023 16:30-0500 Heart rate 76 /min Adelaida Carrion [employer] Work Phone: [facility] 05-18-2023 16:30-0500 Respiratory rate 19 /min Adelaida Carrion [employer] Work Phone: [facility] 05-18-2023 16:30-0500 SaO2% (BldA) [Mass fraction] 97 % Adelaida Carrion [employer] Work Phone: [facility] 05-18-2023 16:30-0500 Systolic blood pressure 134 mm[Hg] Adelaida Aichholz [employer] Work Phone: [facility] 03-23-2023 12:10-0500 Diastolic blood pressure 98 mm[Hg] Adelaida Aichholz Work Phone: [facility] 03-23-2023 12:10-0500 Heart rate 76 /min Adelaida Aichholz Work Phone: [facility] 03-23-2023 12:10-0500 Respiratory rate 18 /min Adelaida Aichholz Work Phone: [facility] 03-23-2023 12:10-0500 SaO2% (BldA) [Mass fraction] 99 % Adelaida Aichholz Work Phone: [facility] 03-23-2023 12:10-0500 Systolic blood pressure 162 mm[Hg] Adelaida Aichholz Work Phone: [facility] 03-23-2023 10:53-0500 Body height 162.56 cm Adelaida Aichholz Work Phone: [facility] 03-23-2023 10:53-0500 Body weight 125.64 kg Adelaida Aichholz Work Phone: [facility] 12-19-2022 14:55-0400 Body height 162.56 cm Rosemary Kirkland Other [employer] [facility] [employer] Other 12-19-2022 14:55-0400 Body mass index (BMI) [Ratio] 47.85 kg/m2 Rosemary Kirkland Other [employer] Other 12-19-2022 14:55-0400 Body temperature 97.8 [degF] Rosemary Kirkland Other [employer] Other 12-19-2022 14:55-0400 Body weight 126.46 kg Rosemary Kirkland Other [facility] [employer] Other 12-19-2022 14:55-0400 Respiratory rate 20 /min Rosemary Kirkland Other [employer] [facility] [employer] Other 12-19-2022 14:55-0400 SaO2% (BldA) [Mass fraction] 95 % Rosemary Kirkland Other [facility] [employer] Other 11-20-2022 13:12-0400 Body temperature 97.7 [degF] Adelaida Aichholz Work Phone: [facility] 11-20-2022 13:12-0400 SaO2% (BldA) [Mass fraction] 96 % Adelaida Aichholz Work Phone: [facility] 11-20-2022 07:44-0400 Diastolic blood pressure 90 mm[Hg] Adelaida Aichholz Work Phone: [facility] 11-20-2022 07:44-0400 Heart rate 103 /min Adelaida Aichholz Work Phone: [facility] 11-20-2022 07:44-0400 Systolic blood pressure 152 mm[Hg] Adelaida Aichholz Work Phone: [facility] 11-19-2022 20:00-0400 Respiratory rate 18 /min Adelaida Aichholz Work Phone: [facility] 11-18-2022 15:18-0400 Body height 162.56 cm Adelaida Aichholz Work Phone: [facility] 11-17-2022 09:00-0400 Body weight 122.92 kg Adelaida Aichholz Work Phone: [facility] Encounters Encounter Date Encounter Type Care Provider Facility Start: 05-22-2023 End: 05-22-2023 ambulatory ASHLEIGH HINES Not Available Start: 05-21-2023 Refill Adelaida Carrion [employer] Work Phone: [facility] Comment on above: Acute cystitis with hematuria (Primary Dx) Start: 05-18-2023 End: 05-18-2023 ambulatory ADELAIDA CARRION Not Available Start: 05-18-2023 End: 05-18-2023 Office outpatient visit 25 minutes Adelaida Carrion [employer] Work Phone: [facility] Comment on above: Encounter for annual wellness visit (AWV) in Medicare patient (Primary Dx); OSMANY (obstructive sleep apnea); Chronic pain disorder; Gastroesophageal reflux disease, unspecified whether esophagitis present; Overactive bladder; Lower extremity edema; Pre-diabetes; Morbid obesity (CMS/HCC); Yeast infection of the skin; Tobacco dependence; Mood disorder ([facility]); Primary hypertension ([facility]); Left hip pain; Open wound of anterior abdominal wall, initial encounter Start: 05-18-2023 Bamboo flowsheet Adelaida Carrion [employer] Work Phone: [facility] Start: 05-18-2023 Bamboo flowsheet Adelaida Carrion [employer] Work Phone: [facility] Start: 05-18-2023 End: 05-18-2023 Patient encounter procedure Adelaida Carrion [employer] Work Phone: [facility] Start: 03-26-2023 ambulatory Eduardo Acevedo acility:[facility] Start: 03-25-2023 End: 03-25-2023 ambulatory ADELAIDA CARRION Not Available Start: 03-23-2023 End: 03-23-2023 ambulatory Jace Graham Facility:[facility] Start: 03-23-2023 End: 03-23-2023 Admission to same day surgery center Adelaida Carrion Work Phone: [facility] Work Phone: Start: 03-23-2023 End: 03-23-2023 ambulatory Adelaida Carrion Work Phone: [facility] Work Phone: Start: 03-11-2023 End: 03-11-2023 ambulatory KALLI INTERIANO Keiry PIERO Not Available Start: 02-20-2023 End: 02-20-2023 ambulatory ASHLEIGH HINES Not Available Start: 02-12-2023 End: 02-12-2023 ambulatory Jace Graham Other [employer] Other Start: 02-12-2023 Telephone encounter Jace CORADO [employer] Start: 12-19-2022 End: 12-19-2022 ambulatory Rosemary Kirkland Other [employer] Other Start: 12-19-2022 Office outpatient ne w 10 minutes Rosemary Kirkland [facility] [place] Start: 11-17-2022 End: 11-20-2022 Evaluation and management of inpatient Adelaida J Sheyla Facility:[facility] Start: 11-17-2022 End: 11-20-2022 Evaluation and management of inpatient Adelaida Sheyla Work Phone: [facility] Work Phone: Start: 09-04-2022 ambulatory ARIAN JOHNSON . Facili ty:[facility]1 Start: 08-26-2022 ambulatory NARENDRANATH LAKSHMIPATHY . Facility:[facility] Start: 08-08-2022 End: 08-09-2022 ambulatory C[employer] ADELAIDA AICMarquesHOLZ Facility:[facility] Start: 07-25-2022 End: 07-26-2022 ambulatory C[employer]AM ADELAIDA AICHHOLZ Facility:[facility] Start: 07-15-2022 End: 07-15-2022 ambulatory NARENDRANATH [...] Start: 01-10-2022 End: 02-12-2022 ambulatory BRIDGETTE Ca [facility] Facility:[facility] Start: 01-02-2022 End: 01-03-[address] FINA ZIMMER . Facility:[facility] Start: 01-01-2022 End: 01-02-2022 ambulatory BRIDGETTE Ca [facility] Facility:[facility] Start: 12-16-2021 End: 12-16-2021 ambulatory LIVIER [...] End: 07-03-2018 Patient encounter procedure SUKI ESCALANTE Facility:[facility] Procedures Date Procedure Procedure Detail Performing Clinician Start: 03-23-2023 Screening colonoscopy L onealmyrna Carrion Work Phone: Start: 03-23-2023 Colonoscopy Adelaida Jayden rachel [employer] Work Phone: Start: 09-15-2022 Mammography Adelaida ramos NP Work Phone: Start: 08-28-2022 Microscopic observat ion [Identifier] in Cervix by Cyto stain Adelaida Carrion [employer] Work Phone: Start: 07-02-2018 ANESTH KNEE AREA SURGERY CHAPARRITA HENDRICKS Start: 07-02-2018 REMOVAL OF SUPPORT IMPLANT SUKI EBRAHEIM Start: 07-02-2018 TREAT KNEECAP FRACTURE SUKI EBRAHEIM Plan of Treatment Date Care Activity Detail Author Start: 03-23-2033 Screening for malignant neoplasm of colon [facility] Start: 08-28-2025 Screening for malignant neoplasm of cervix [facility] Start: 05-18-2024 Medicare Annual Wellness (AWV) Medicare Annual Wellness (AWV) [facility] Start: 09-16-2023 Screening for malignant neoplasm of breast Mammogram [facility] Start: 08-17-2023 End: 08-17-2023 Patient encounter procedure 08/17/2023 9:20 AM EDT Office Visit [facility] [address] [place] [address] Adelaida Carrion NP [address] [place] [id number] [facility] Start: 05-22-2023 End: 05-22-2023 Patient encounter procedure 05/22/2023 8:45 AM EST Office Visit [facility] [address] [facility] [address] [place] [place] [address] Ashleigh Hines PA [address] [facility] [address] [place] [address] [facility] Start: 05-18-2023 End: 05-18-2023 Patient encounter procedure 05/18/2023 4:30 PM EST Office Visit [facility] [address] [place] [address] Adelaida Carrion NP [address] [place] [id number] Arrived [facility] Comment on above: Arrived Start: 05-18-2023 End: 05-18-2024 XR Hip - left 3 Views XR hip left 2 or 3 views Imaging Routine Left hip pain Expected: 05/18/2023 (Approximate), Expires: 05/18/2024 [facility] Work Phone: Comment on above: Expected: 05/18/2023 (Approximate), Expires: 05/18/2024 Start: 03-23-2023 [facility] Start: 11-20-2022 [facility] Start: 11-18-2022 Referral to clinical dna analyst [facility] Start: 11-17-2022 Hospital admission [facility] Start: 11-17-2022 [facility] Start: 12-06-1991 Screening for malignant neoplasm of cervix HPV/Cotest [facility] Start: 1960 Medicare Annual Wellness (AWV) Medicare Annual Wellness (AWV) [facility] Start: 1960 Screening for malignant neoplasm of colon [facility] Patient Education [facility] Work Phone: Patient referral [facility] Work Phone: [facility] Immunizations Immunization Date Immunization Notes Care Provider Fa cility 02-13-2023 influenza, injectabl e, quadrivalent, preservative free Adelaida Carrion [employer] Work Phone: [facility] 02-13-2023 SARS-COV-2 (COVID-19 ) vaccine, mRNA, spike protein, LNP, PF, 50 mcg/0.5 mL Adelaida Carrion [employer] Work Phone: [facility] 02-19-2022 diphtheria, tetanus toxoids and pertussis vaccine Adelaida Carrion [employer] Work Phone: [facility] 03-02-2021 Moderna SARS-CoV-2 Vaccination Adelaida Carrion [employer] Work Phone: [facility] 08-24-2020 Moderna SARS-CoV-2 Vaccination Adelaida Aichholz [employer] Work Phone: [facility] 07-27-2020 Moderna SARS-CoV-2 Vaccination Adelaida Carrion [employer] Work Phone: [facility] 05-28-2018 influenza, injectabl e, quadrivalent, preservative free Adelaida Carrion Work Phone: [facility] Payers Date Payer Category Payer Medicare [id number] 2022 Private Health Insurance [id number] 2022 Self-pay [id number] 2022 Medicare [employer] MEDICARE REPLACEMENT [id number] 2022-Present [address] [address] [place] [address] [id number] 2008 Unknown [id number] 1960 Unknown [id number] 1960 Unknown [id number] 1960 Unknown [id number] 1960 Unknown [id number] 1960 Unknown [id number] [id number] 1960 Unknown [id number] [id number] 1960 Unknown [id number] [id number] 1960 Unknown [id number] [id number] .593 1960 Unknown [id number] 2.16.840.1.334388.3.579.2 .593 1960 Unknown [id number] 2.16.840.1.316882.3.579.2 .593 1960 Unknown [id number] 2.16.840.1.536254.3.579.2 .593 1961 Unknown [id number] 2.16.840.1.326568.3.579.2 .593 1961 Unknown [id number] 2.16.840.1.478064.3.579.2 .593 1961 Unknown [id number] 2.16.840.1.492533.3.579.2 .593 1961 Unknown [id number] 2.16.840.1.654707.3.579.2 .593 1961 Unknown [id number] 2.16.840.1.737703.3.579.2 .593 1961 Unknown [id number] 2.16.840.1.657261.3.579.2 .593 1961 Unknown [id number] 2.16.840.1.707787.3.579.2 .593 1961 Unknown [id number] 2.16.840.1.874632.3.579.2 .593 1961 Unknown [id number] 2.16.840.1.237438.3.579.2 .593 1961 Unknown [id number] 2.16.840.1.986256.3.579.2 .593 1961 Unknown [id number] 2.16.840.1.219347.3.579.2 .593 1961 Unknown [id number] 2.16.840.1.967798.3.579.2 .593 1961 Unknown [id number] 2.16.840.1.949501.3.579.2 .593 1961 Unknown [id number] 2.16.840.1.306876.3.579.2 .593 1961 Unknown [id number] 2.16.840.1.725058.3.579.2 .1259 1961 Unknown [id number] 2.16.840.1.313311.3.579.2 .1259 1961 Unknown [id number] 2.16.840.1.536038.3.579.2 .1259 1961 Unknown [id number] 2.16.840.1.508703.3.579.2 .1259 1961 Unknown [id number] 2.16.840.1.769682.3.579.2 .1259 1958 Medicare [id number] 1959 Unknown [id number] Unknown [id number] 2.16.840.1.722898.3.579.2 .531 Unknown [id number] 2.16.840.1.473370.3.579.2 .531 Unknown [id number] 2.16.840.1.885344.3.579.2 .531 Social History Date Type Detail Facility Start: 11-18-2022 End: 02-09-2023 Tobacco smoking status NHIS Ex-smoker (finding) [facility] Start: 1960 Sex Assigned At Female [facility] Start: 03-25-2023 End: 05-18-2023 Sex Assigned At [facility] End: 04-06-2016 History of tobacco use Current smoker [facility] End: 04-06-2016 History of tobacco use Cigarette Smoker [facility] Start: 02-09-2023 End: 05-18-2023 Cigarettes smoked [...] [OSQ] Very much [facility] (I/We) worried whebrent er (my/our) food would run out before [...] Facility 11-20-2022 Functional status Patient at [facility] Work Phone: Mental Status Date Assessment Result Facility 11-20-2022 Cognitive function Cognitive Sta tus Patient is Progressing Toward [facility] Work Phone: Clinical Notes 10-03-2021 to 05-18-2023 Adelaida Carrion NP - 05/18/2023 5:49 PM Mynor Carrion NP - 05/18/2023 5:47 PM Mynor Carrion NP - 05/18/2023 5:20 PM Mynor Carrion NP - 05/18/2023 5:17 PM EST Note Date [...] (BARIATRIC MULTIVITAMINS/IRON PO) Bariatric Multivitamins/Iron nystatin (Mycostatin) 287700 UNIT/GM powder 1 application , Topical, 2 [...] Anxiety 05/18/2023 Bipolar disorder with severe depression (CMS/HCC) 05/18/2023 Brain vascular malformation Chronic pain disorder Colon polyps Constipation Degenerative cervical disc Degenerative lumbar disc Depression (CMS/HCC) 05/18/2023 Diastolic dysfunction Dizziness 05/18/2023 Dysphagia Fibromyalgia Gastrocnemius equinus GERD (gastroesophageal reflux disease) Heart murmur Hematoma of right breast Hemiparesis, right ([facility]) Hemorrhoid int/external hemorrhoids Hiatal hernia Iron deficiency Left foot pain 03/25/2023 Lower extremity edema Mood disorder ([facility]) mixed mood disorder OSMANY (obstructive sleep apnea) Osteoporosis ([facility]) Overactive bladder Pre-diabetes Primary hypertension ([facility]) 03/25/2023 PTSD (post-traumatic stress disorder) ([facility]) Restless leg Right knee pain Right sided weakness S/P bariatric surgery Shingles Slurred speech Stroke ([facility]) 2018 Tenosynovitis, de Quervain Thoracic back pain, unspecified back pain laterality, unspecified chronicity Tobacco dependence Vertigo, benign paroxysmal Yeast infection of the skin 05/18/2023 Past Surgical History: Procedure Laterality Date APPENDECTOMY BREAST LUMPECTOMY Right SECTION, LOW TRANSVERSE x2 CHOLECYSTECTOMY COLONOSCOPY 2011 DENTAL IMPLANT DILATION AND CURETTAGE OF UTERUS x2 HIATAL HERNIA REPAIR KNEE SURGERY Right 2018 x2 LAMINECTOMY L4/L5 LAPAROSCOPIC GASTRIC BANDING 2007 OTHER SURGICAL HISTORY hair follicle from scalp [...] yearly and prn documented in this encounter [facility] 03-23-2023 Procedure note [facility] 12-19-2022 Evaluation note Encounter Date Diagnosis Assessment Notes Dec, Skin candidiasis (ICD-10 - B37.2) Drink plenty fluids, get plenty of rest. Continue home medications as prescribed. Take the Diflucan as prescribed until gone. Follow-up with your family physician if no improvement in 2 to 3 days [facility] Other 08-17-2023 Discharge summary Author Eduardo bautista [facility] November 20, 2022 6:38am Note Date/Time November 20, 2022 6: 38am [facility] [address] [place] [address] Discharge Summary Signed Patient: Michelle Be MR#: [id number] : 1960 Acct:[id number] Age/Sex: 61 / F Adm Date: 3 Loc: 1S Room: 8W2656-[address]: Gaudencio Monk MD Copies to: MD Adelaida Álvarez, BRIANA-C~ Providers Date of Discharge: 11/20/22 Discharging Provider: [...] at that time.? She reports moving to [place] from [place] in 2011 and was then diagnosed with bipolar disorder at [facility] in [place], where she still follows with a therapist.? Shereports that she has been with 7 therapists in the last 9 years and is currentlycompleting EMDR with her current therapist. Past hospitalizations: Her most recent hospitalization was 5 years ago [facility] for the same feeling she is experiencing [...] her , son and his girlfriend, and shiradson.? Reports a situation in which they are attempting to seek custody of the grandson from the mother of the child.? She reports not feeling safe at homewith herself but feels safe when her family is home. Employment: Patient has not worked since 2010 due to her fibromyalgia.? [facility]. Relationships: Reports [...] self or stop treatment, but to call [employer], 911 or come to the nearest emergency [...] 600 mg tablet 600 mg PO 0900,1400 Patient Comments: TAKE 1 TABLET BY MOUTH [...] Tablet 1 tab PO QID Follow Up: [facility] [Outside] [facility] [Outside] ( manager ship: (Insert date/time here) Therapy:? (insert date/time here) [...] signed by Eduardo Monk MD> 11/20/22 0638 [facility] Work Phone: 1(490) 155-742508-16-2023 Progress note Author Eduardo bautista [facility] November 19, 2022 6:25am Note Date/Time November 19, 2022 6: 25am [facility] [address] [place] [address] Psychiatry Progress Note Signed Patient: Mcihelle Be MR#: [id number] : 1960 Acct:[id number] Age/Sex: 61 / F Adm Date: 3 Loc: Room: [address] [place] [address] Type : ADM IN Attending Dr: Gaudencio [...] signed by Eduardo Monk MD> 11/19/22 0625 [facility] Work Phone: 1(677) 238-917708-15-2023 Progress note Author Eduardo bautista [facility] November 18, 2022 11:01am Note Date/Time November 18, 2022 10 :11am [facility] [address] [place] [address] Psychiatry Progress Note Signed Patient: Michelle Be MR#: [id number] : 1960 Acct:[id number] Age/Sex: 61 / F Adm Date: 08/14/2 3 Loc: 1S Room: 6E3063-4 Type : ADM IN Attending Dr: Gaudencio [...] by requesting a schedule 2 referring to [facility] for pain management specifically every 4-6 hours [...] time Documented By: Eduardo Monk MD 3 [id number] Signed By: <Electronically signed by Eduardo Monk MD> 11/18/22 1101 <Electronically signed by MD DA Rangel> 11/18/22 1011 [facility] Work Phone: 1(610) 403-435308-14-2023 History and physical note Author Eduardo bautista [facility] November 17, 2022 12:48pm Note Date/Time November 17, 2022 12 :48pm [facility] [address] [place] [address] Psychiatry H&P Signed Patient: Michelle Be MR#: [id number] : 1960 Acct:[id number] Age/Sex: 61 / F Adm Date: 3 Loc: Room: 2R0864-0 Type: ADM IN Attending Dr: Gaudencio Monk [...] at that time. She reports moving to [place] from [place] in 2011 and was then diagnosed with bipolar disorder at [facility] in [place], where she still follows with a therapist. Toñiotorts that she has been with 7 therapists in the last 9 years and is currentlycompleting EMDR with her current therapist. Past hospitalizations: Her most recent hospitalization was 5 years ago [facility] [place] for the same feeling she is experiencing [...] equal bilaterally. CN XII: Tongue protrusion midline [facility] Medical History (Updated 11/17/22 @ 10:42 by [...] tizanidine 4 mg tablet 2 mg PO 09,139911/17/22 [History Confirmed 11/17/22] tizanidine 4 mg tablet [...] participation in group therapy Documented By: Eduardo oMnk MD 3 1029 Signed By: <Electronically signed by Eduardo Monk MD> 11/17/22 1243 [facility] Work Phone: 1(127) 404-941503-23-2023 NoteCONSULTATION CONSULTATION DATE: 06/26/2022 To: Nurse Sheyla [...] facet joint injection under fluoroscopic guidance.[facility] HospitalIkhloaeo30-72-0745 NotePROCEDURE: XR SHOULDER RT 2V or > [...] Electronically authenticated by: KINGSLEY CLEMENTS Date: 2022-05-09 09:21[facility]01-23-2023 NotePROCEDURE: XR WRIST LT MIN 3 V [...] Electronically authenticated by: KINGSLEY CLEMENTS Date: 2022-04-28 13:31[facility]12-29-2022 NoteCONSULTATION CONSULTATION DATE: 04/03/2022 HISTORY OF PRESENT [...] q.h.s., Neurontin per her PCP, Lavinia and Manuelaien. She recently got her medical marijuana card, [...] in three months, unless otherwise indicated.[facility] HospitalWkbxszxo72-03-1572 NoteCONSULTATION CONSULTATION DATE: 01/02/2022 This is a [...] prescription was sent by Dr. Macedo to [facility] in [place] for the compounded cream. She needs a [...] three months' time unless otherwise indicated.[facility] HospitalBoyibupd13-84-0774 NotePROCEDURE: XR ANKLE RT MIN 3 VIEWS, [...] authenticated by: KINGSLEY CLEMENTS Date: 2022-01-01 13:11[facility] HospitalAjkxrawe04-80-3819 NotePROCEDURE: XR ANKLE RT MIN 3 VIEWS, [...] Electronically authenticated by: KINGSLEY CLEMENTS Date: 2022-01-01 13:11[facility]08-18-2022 NotePROCEDURE: XR FOOT RT MIN 3 VIEWS HISTORY: Pain in right foot , chronic COMPARISON: XR foot right 2020 FINDINGS: BONES:No fracture, dislocation, bone lesion. Small calcaneal degenerative enthesophytes. SOFT TISSUES:No visible soft tissue swelling. EFFUSION:None visible. OTHER: Negative. IMPRESSION: 1. No acute bone abnormality or significant degenerative joint disease. Electronically authenticated by: KINGSLEY CLEMENTS Date: 2021-11-21 16:13[facility]06-30-2022 NoteCONSULTATION CONSULTATION DATE: 10/03/2021 This is [...] patient agrees with the plan of care. [facility] Signed and Approved by: ZELDA MCDANIEL . 10/10/2021 10:22:00[facility] Diagnosis Onset Date Resolution Status Allergies acute Bipolar 2 disorder acute Hypertension acute Morbid obesity with BMI of 45.0-49.9, adult acute OSMANY (obstructive sleep apnea) acute Restless legs syndrome acute [facility] Work Phone: Evaluation noteNo InformationNouniversity of [place] Other Evaluation noteNo assessment information available [facility] Work Phone: Evaluation note* Diagnosis Encounter for [...] (CMS/HCC) Unspecified episodic mood disorder Primary hypertension (CMS/HCC) Unspecified essential hypertension Left hip pain Pain in joint, pelvic region and thigh Open wound of anterior abdominal wall, initial encounter [facility] Diagnosis Acute cystitis with hematuria- Primary documented in this encounter [facility] Author Jace Graham [facility] March 23, 2023 11:21am Note Date/Time March 23, 2023 11:21am [facility] [address] [place] [address] Gastroenterology H&P Signed Patient: Michelle Be MR#: [id number] : 1960 Acct:[id number] Age/Sex: 62 / F Adm Date: 3 Loc: Room: Type: [facility] Attending Dr: Jace Graham MD Copies to: MD Adelaida Plummer NP-C~ Date of Service: 03/23/2023 HISTORY & PHYSICAL: [...] MD Documented By: Jace Graham MD 03/23/23 1121 Signed By: <Electronically signed by Jace Graham MD> 03/23/23 1121 [facility] Work Phone: History general Narrative - Reported* Type Description Date Medical History RLS Medical History fibromylgia Medical History DDD Medical History Bipolar type 2 Medical History hx stroke Surgical History C section x2 Surgical History D&C x 2 Surgical History tonsillectomy Surgical History cholecystectomy Surgical History hemicolectomy Surgical History lap band Surgical History ORIF right knee 2018 Surgical History SCOTT-N-Y 2019 Surgical History LEFT WRIST TENDON RELEASE 2022 Hospitalization History see above surg Hospitalization History stroke 2017 [facility] Other Hospital Discharge instructions Additional Instructions Regular Diet No Activity [facility]ions[facility] Health Work Phone: Hospital Discharge instructions Additional Instructions [...] years. -Follow up with PCP. -Office number [phone].[facility] Work Phone: Summary Purpose Family History No [...] section and content) DATE CREATED AUTHOR 02/18/2019 [facility] DATE CREATED AUTHOR AUTHOR'S ORGANIZ ATION 11/15/2021 [facility] DATE CREATED AUTHOR AUTHOR'S ORGANIZ ATION 08/16/2022 [facility] DATE CREATED AUTHOR AUTHOR'S ORGANIZ ATION 05/24/2023 [facility] DATE CREATED AUTHOR AUTHOR'S ORGANIZ ATION 06/07/2023 [facility] Care Teams (unrecognized sec tion and content) Team Status: Active Member Role Status Dates Adelaida Carrion Primary Care Provider Active Team Status: Inactive Member Role Status Dates Adelaida Carrion Primary Care Provider Active Gaudencio Monk MD Admit Provider, Attending Pr ovider Active Andreina Vieira RN Other Provider Active Camilla Pina , RN Other Provider Active Ruchi Hurtado , RN Other Provider Active Lisa Crooks , RN Other Provider Active Tash Mejias RN Other Provider Active Elzbieta Kim , RN Other Provider Active Walker Pringle MD Other Provider Active Adelaida Marsh , PIGEON FANCIER Other Provider Active Jessica Murillo , DO [...] MD Other Provider Active Joellen Le , WIRE BASKET MAKER-C Other Provider Active Severo Yancey MD Other Provider Active Rao Webber MD Other Provider Active Yuan Shi MD Other Provider Active Delroy Ramirez MD Other Provider Active Berta Comer , DO Other Provider Active Negrito Ruiz , DO Other Provider Active Lacho Singh , DO Other Provider Active Rachana Hobson , PIGEON FANCIER Other Provider Active Rob Lake , DO Other Provider Active Jeff Alvarez MD Other Provider Active Urmila Rinaldi , PIGEON FANCIER Other Provider Active Bina Mayberry , PIGEON FANCIER Other Provider Active Mir Bradford MD Other Provider Active Te Da Silva MD Other Provider Active Debra Landaverde , JOHANN Other Provider Active Team Status: Inactive Member Role Status Dates Adelaida Carrion Primary Care Provider Active Jace Graham MD Attending Provider Active [employer] Relationship Specialty Start Date End Date José Luis Roberts MD [address] [place] [phone] PCP - General Family Medicine 05/18/23 Adelaida Carrion NP [address] [place] [phone] Referring Physician Nurse Practitioner 10/14/22 [employer] Relationship Specialty Start Date End Date José Luis Roberts MD [address] [place] [phone] PCP - General Family Medicine 05/18/23 Adelaida Carrion NP [address] [place] [address] Referring Physician Nurse Practitioner 10/14/22 [employer] Relationship Specialty Start Date End Date José Luis Roberts MD [address] [place] [address] PCP - General Family Medicine 05/18/23 Adelaida Carrion NP [address] [place] [address] Referring Physician Nurse Practitioner 10/14/22 REASON [...] BE BASED ON THE PRIMARY CLINICAL RECORDS. [facility] [employer] [facility]. provides no warranty or guarantee of the accuracy or completeness of information in this document.
--- NOTE | 2023-06-17 12:55 | P.CN_ITS ---
Consult Note: HPI Data of Consult Patient: known to practice within the last 3 years Requesting Physician: Bhakti Culp NP Primary Care Provider: Adelaida Carrion NP Consult Narrative Reason for consult: f/u Narrative: Nasim Ingram a pleasant 62 year old female presents for evaluation and management of chronic low back pain and left hip pain. Pain 9/10 constant pain in left hip and low back. Pain increased with standing, walking, housework, lifting, stairs, bending, and activity. Patient had previously reported significant pain relief from left L4-5 L5-S1 RFA. Patient following with Dr Díaz for consideration of right knee replacement, pending dental clearance. Patient finds mild benefit from medication regimen. cc:: CC: Bhakti Culp NP Review of Systems ROS Status of ROS 10 or more systems reviewed and unremark able except as noted in history and below Musculoskeletal Reports: back pain and joint pain [facility] Medical History FH: bariatric surgery ?Z84.89 - Family history of other specified conditions (ICD-10) Upper back pain ?M54.9 - Dorsalgia, unspecified (ICD-10) Osteoarthritis ?M19.90 - Unspecified osteoarthritis, unspecified site (ICD-10) Neck pain ?M54.2 - Cervicalgia (ICD-10) Low back pain ?M54.50 - Low back pain, unspecified (ICD-10) Fibromyalgia ?M79.7 - Fibromyalgia (ICD-10) Bipolar 1 disorder ?F31.9 - Bipolar disorder, unspecified (ICD-10) Acid reflux ?K21.9 - Gastro-esophageal reflux disease without esophagitis (ICD-10) Obesity ?E66.9 - Obesity, unspecified (ICD-10) Sleep apnea ?G47.30 - Sleep apnea, unspecified (ICD-10) Heart murmur ?R01.1 - Cardiac murmur, unspecified (ICD-10) High cholesterol ?E78.00 - Pure hypercholesterolemia, unspecified (ICD-10) Hypertension ?I10 - Essential (primary) hypertension (ICD-10) Surgical History S/P dilatation and curettage ?Z98.890 - Other specified postprocedural states (ICD-10) H/O breast biopsy ?Z98.890 - Other specified postprocedural states (ICD-10) S/P ORIF (open reduction internal fixation) fracture ?Z98.890 - Other specified postprocedural states (ICD-10) ?Z87.81 - Personal history of (healed) traumatic fracture (ICD-10) Hx of laparoscopic gastric banding ?Z98.84 - Bariatric surgery status (ICD-10) History of tonsillectomy and adenoidectomy ?Z90.89 - Acquired absence of other organs (ICD-10) History of appendectomy ?Z90.49 - Acquired absence of other specified parts of digestive tract (ICD- 10) History of hemilaminectomy ?Z98.890 - Other specified postprocedural states (ICD-10) History of cholecystectomy ?Z90.49 - Acquired absence of other specified parts of digestive tract (ICD- 10) Previous section ?Z98.891 - History of uterine scar from previous surgery (ICD-10) Social History Smoking status: Former smoker Meds Home Medications and Allergies Home Medications Medication Instructions Recorded Confirmed Type amlodipine 10 mg tablet (Norvasc) 10 mg PO DAILY 09/10/22 03/10/23 History biotin 1 mg capsule 1 mg PO DAILY 09/10/22 03/10/23 History cariprazine 4.5 mg capsule 4.5 mg PO Q24H 09/10/22 03/10/23 History (Vraylar) cetirizine 10 mg tablet (24Hour 10 mg PO DAILY PRN allergy symptoms 09/10/22 03/10/23 History Allergy) clonazepam 1 mg tablet 1 mg 09/10/22 History duloxetine 60 mg capsule,delayed mg PO 09/10/22 History release ferrous sulfate 325 mg (65 mg 325 mg PO BID 09/10/22 03/10/23 History iron) tablet (FeroSul) gabapentin 600 mg tablet 1,200 mg PO DAILY 09/10/22 03/10/23 History (Neurontin) gabapentin 600 mg tablet 600 mg PO DAILY 09/10/22 03/10/23 History (Neurontin) losartan 50 mg tablet (Cozaar) 50 mg PO DAILY 09/10/22 03/10/23 History magnesium 200 mg tablet 400 mg PO BID 09/10/22 03/10/23 History melatonin 12 mg tablet 12 mg PO .HS PRN sleep 09/10/22 03/10/23 History omeprazole 20 mg capsule,delayed 20 mg 09/10/22 History release ropinirole 4 mg tablet mg 09/10/22 History trazodone 150 mg tablet 150 mg 09/10/22 History zolpidem 10 mg tablet 10 mg 09/10/22 History olanzapine 5 mg tablet (Zyprexa) 5 mg PO DAILY PRN anxiety 01/06/23 03/10/23 History carvedilol 3.125 mg tablet (Coreg) 3.125 mg PO BID 02/10/23 03/10/23 History tizanidine 4 mg capsule 4 mg PO TID PRN muscle spasticity 02/18/23 03/10/23 History azithromycin 250 mg tablet See Rx Instructions PO .COMPLEX #6 06/15/23 Rx (Zithromax Z-Aldo) tabs benzonatate 100 mg capsule 100 mg PO TID PRN cough #20 caps 06/15/23 Rx Allergies Allergy/AdvReac Type Severity Reaction Status Date / Time levetiracetam [From Kera] Allergy Severe Verified 03/10/23 07:09 adhesive Allergy Intermediate Blister Verified 03/10/23 07:09 Penicillins Allergy Intermediate Verified 03/10/23 07:09 tetracycline Allergy Intermediate Verified 03/10/23 07:09 milnacipran [From Savella] AdvReac Intermediate Agitated Verified 03/10/23 07:09 prochlorperazine AdvReac Intermediate Agitated Verified 03/10/23 07:09 [From Compazine] Exam Constitutional Documenting provider has reviewed patient's vital signs: yes Common normals: no apparent distress, oriented x3, healthy appearing, alert and well nourished General appearance: cooperative Nutritional appearance: obese HENMT Common normals: normocephalic, hearing grossly normal bilaterally and moist oral mucous membranes Head and scalp: normocephalic Eye Common normals: PERRL Pupil: PERRL Neck & C-Spine Common normals: full ROM General: normal visual inspection Chest Common normals: inspection of chest normal Respiratory Common normals: normal respiratory effort, no retractions and no use of accessory muscles Back & Pelvis Lumbar spine/lower back: lumbar ROM normal and pain with ROM Sacroiliac joints: SI joint(s) abnormal Other: negative facet loading pain over bilateral PSIS, positive autumn fadir thigh thrust and gaenslens Extremity Common normals: normal to inspection and full ROM Left lower extremity: hip joint Other: pain with external rotation and internal rotation of left hip Neuro Common normals: oriented x3, CN's II-XII intact bilaterally, moves all extremities, no focal motor deficits, no sensory deficits noted and deep tendon reflexes 2+ bilaterally Sensorium/orientation: alert Gait (neuro): normal gait Motor exam: strength 5/5 throughout and no movement abnormalities noted Psych Common normals: mental status grossly normal, thought process normal, cooperative, affect normal, speech normal and activity/motor behavior normal Speech: normal speech Thought process: normal thought process Results Additional Findings Additional findings: If on a controlled substance or opioids, I have checked an [place] report on this patient today and there are no aberrancies noted in the prescribing history.?? A drug screen was completed and reviewed within the last year, and if there has not been a drug screen completed we ordered one today to monitor higher risk, state monitored pain medication use. As part of providing excellent, safe, comprehensive care, the following was completed at our patient's visit: Reviewed patients? medication reconciliation. An annual review has been completed for the following: screening for depression, screening for tobacco use, and screening for unhealthy alcohol use. For concerning screenings had a discussion with the patient, provided patient education, and recommended follow-up with primary care provider when appropriate. If patient noted with a risk of falling, they received education on strength, gait, and balance training to prevent future risk of falling. Assessment and Plan Assessment and Plan (1) Sacroiliitis: (2) Osteoarthritis of left hip: Plan nerve block of bilateral SIJ under fluoroscopy continue f/u with Dr Díaz for right knee OA and possible TKA f/u after SIJ injection, consider left hip injection
== END 2023-06-17 12:26 | disposition home or self-care (01) ==
PROVIDERS: PCP Nurse Practitioner; Visit Provider Nurse Practitioner
DX: M46.1 Sacroiliitis, not elsewhere classified (principal); M16.12 Unilateral primary osteoarthritis, left hip
CPT/HCPCS: G0463

== ENCOUNTER 2023-06-29 10:25 | Day surgery (SDC) | payer MEDICARE, SELFPAY ==
--- OUTSIDE RECORDS SUMMARY | 2023-06-29 10:32 | XMS_ITS | CCD ---
Author Organization [facility] Care Team Providers Care Molding Utility Worker Name Role Phone EBHEIM, SUKI Admitting Unavailable EBRAHEIM, SUKI Attending Unavailable AICHHOLZ, ADELAIDA Referring Unavailable AICHHOLZ, ADELAIDA Primary Care Unavailable WI Procedure Practitioner Unavailab HELADIO JacobIL Surgeon Unavailable [place] Procedure Practitioner Unavailab CHAPARRITA Goncalves Surgeon Unavailable BRIDGETTE MACEDO Admitting Unavailable BRIDGETTE MACEDO Attending Unavailable AICHHOLZ, LAST CHALKER ADELAIDA Primary Care Unavailable ZIMMER ., DR FINA Iverson Admitting Unavailable ZIMMER ., DR FINA Iverson Attending Unavailable AICHHOLZ, LAST CHALKER ADELAIDA Primary Care Unavailable MCDANIEL ., ZELDA Consulting Unavailable LAKSHMIPATHY ., NARENDRANATH Consulting Paula vailable LAKSHMIPATHY ., NARENDRANATH Admitting Paula vailable LAKSHMIPATHY ., NARJEANARANATH Attending Paula vailable AICHHOLZ, LAST CHALKER ADELAIDA Primary Care Unavailable LAKSHMIPATHY ., NARENDRANATH Consulting Paula vailable AICHHOLZ, LAST CHALKER ADELAIDA Primary Care Unavailable MARKER ., DR CHAUDHRY Admitting Unavailable MARKER ., DR CHAUDHRY Attending Unavailable MARKER ., DR CHAUDHRY Consulting Unavailable AICHHOLZ, LAST CHALKER ADELAIDA Admitting Unavailable AICHHOLZ, LAST CHALKER ADELAIDA Attending Unavailable AICHHOLZ, LAST CHALKER ADELAIDA Primary Care Unavailable ZIMMER ., DR FINA Iverson Admitting Unavailable ZIMMER ., DR FINA Iverson Attending Unavailable AICHHOLZ, LAST CHALKER ADELAIDA Primary Care Unavailable MCDANIEL ., ZELDA Consulting Unavailable ZIMMER ., DR FINA Iverson Admitting Unavailable ZIMMER ., DR FINA Iverson Attending Unavailable AICHHOLZ, LAST CHALKER ADELAIDA Primary Care Unavailable MCDANIEL ., ZELDA Consulting Unavailable AICHHOLZ, LAST CHALKER ADELAIDA Admitting Unavailable AICHHOLZ, LAST CHALKER ADELAIDA Attending Unavailable AICHHOLZ, LAST CHALKER ADELAIDA Primary Care Unavailable AICHHOLZ, LAST CHALKER ADELAIDA Consulting Unavailable AICHHOLZ, LAST CHALKER ADELAIDA Admitting Unavailable AICHHOLZ, LAST CHALKER ADELAIDA Attending Unavailable AICHHOLZ, LAST CHALKER ADELAIDA Primary Care Unavailable AICHHOLZ, LAST CHALKER ADELAIDA Consulting Unavailable MISC, DR COTE Admitting Unavailable MISC, DR COTE Attending Unavailable AICHHOLZ, LAST CHALKER ADELAIDA Primary Care Unavailable AICHHOLZ, LAST CHALKER ADELAIDA Consulting Unavailable PRITESHC, DR COTE Consulting Unavailable STARR, DR KINGSLEY Atkins Consulting Unavailable ZIMMER ., DR FINA Iverson Admitting Unavailable ZIMMER ., DR FINA Iverson Attending Unavailable AICHHOLZ, LAST CHALKER ADELAIDA Primary Care Unavailable MCDANIEL ., ZELDA Consulting Unavailable ZIMMER ., DR FINA Iverson Admitting Unavailable ZIMMER ., DR FINA Iverson Attending Unavailable AICHOLZ, LAST CHALKER ADELAIDA Primary Care Unavailable ZIMMER ., DR FINA Iverson Consulting Unavailable OMID LYA Consulting Unavailable ZIMMER ., DR FINA Iverson Admitting Unavailable ZIMMER ., DR FINA Iverson Attending Unavailable AICHOLZ, LAST CHALKER ADELAIDA Primary Care Unavailable MCDANIEL ., ZELDA Consulting Unavailable AICHHOLZ, LAST CHALKER ADELAIDA Primary Care Unavailable HALKER ., ARIAN Admitting Unavailable HALKER ., ARIAN Attending Unavailable LAKSHMIPATHY ., NARENDRANATH Consulting Paula vailable HALKER ., ARIAN Consulting Unavailable LAKSHMIPATHY ., NARENDRANATH Admitting Paula vailable LAKSHMIPATHY ., NARENDRANATH Attending Paula vailable AICHHOLZ, LAST CHALKER ADELAIDA Primary Care Unavailable LAKSHMIPATHY ., NARENDRANATH Consulting Paula vailable AICHHOLZ, LAST CHALKER ADELAIDA Admitting Unavailable AICHHOLZ, LAST CHALKER ADELAIDA Attending Unavailable AICHHOLZ, LAST CHALKER ADELAIDA Primary Care Unavailable AICHHOLZ, LAST CHALKER ADELAIDA Consulting Unavailable BRIDGETTE MACEDO Admitting Unavailable BRIDGETTE MACEDO Attending Unavailable AICHHOLZ, LAST CHALKER ADELAIDA Primary Care Unavailable STARR, DR KINGSLEY Atkins Consulting Unavailable BRIDGETTE MACEDO Consulting Unavailable PURA, GILMER Admitting Unavailable PURA, GILMER Attending Unavailable PURA, GILMER Consulting Unavailable AICHHOLZ, LAST CHALKER ADELAIDA Primary Care Unavailable AICHHOLZ, LAST CHALKER ADELAIDA Primary Care Unavailable DR WILLI RINALDI Admitting Unavailable DR WILLI RINALDI Attending Unavailable DEEJAY, DR WILLI Atkins Consulting Unavailable AICHHOLZ, LAST CHALKER ADELAIDA Primary Care Unavailable ALMAZ ., DANNY Admitting Unavailable ALMAZ ., DANNY Attending Unavailable DR KINGSLEY CLEMENTS Consulting Unavailable ALMAZ ., DANNY Consulting Unavailable LAKSHMIPATHY ., NARENDRANATH Admitting Paula vailable LAKSHMIPATHY ., NARENDRANATH Attending Paula vailable AICHHOLZ, LAST CHALKER ADELAIDA Primary Care Unavailable AICHHOLZ, LAST CHALKER ADELAIDA Admitting Unavailable AICHHOLZ, LAST CHALKER ADELAIDA Attending Unavailable AICHHOLZ, LAST CHALKER ADELAIDA Primary Care Unavailable AICHHOLZ, LAST CHALKER ADELAIDA Admitting Unavailable AICHHOLZ, LAST CHALKER ADELAIDA Attending Unavailable AICHHOLZ, LAST CHALKER ADELAIDA Primary Care Unavailable AICHHOLZ, LAST CHALKER ADELAIDA Consulting Unavailable ZIEBER, DR KINGSLEY Atkins Consulting Unavailable HALKER ., ARIAN Admitting Unavailable HALKER ., ARIAN Attending Unavailable AICHHOLZ, LAST CHALKER ADELAIDA Primary Care Unavailable Aichholz, Adelaida J Primary Care Provider MD Gaudencio Monk Admit Provider [phone] MD Gaudencio Monk Attending Provider Dariel RN Andreina Other Provider Unavailable JOHANN Pina Other Provider Unavailable JOHANN Hurtado Other Provider Unavailable JOHANN Crooks Other Provider Unavailable JOHANN Mejias Other Provider Unavailable Judy RN lEzbieta Other Provider Unavailable MD Walker Pringle Other Provider ROSS Marsh Other Provider DO Jessica Murillo Other Provider [phone] MD Obdulio Bragg Other Provider [phone] DO Joon Cristina Other Provider MD Torin Robert Other Provider MD Dawn Barrera Other Provider Karlene, ANP-BC Mari Other Provider MD Sofi Almanzar [...] Provider MD Te Da Silva Other Provider Saima, JOHANN Richardson Other Provider Unavailable Rosemary Kirkland Unavailable Jace Graham Unavailable Adelaida Carrion Primary Care Provider [phone] MD Jace Graham Attending Provider Sheyla WARREN, Adelaida Unavailable José Luis Roberts MD Primary Care Provider ASHLEIGH HINES Attending Unavailable ADELAIDA CARRION Attending Unavailable ASHLEIGH HINES Attending Unavailable JR. PIERO, KALLI Ricci Attending UnavailADELAIDA Thakkar Attending Unavailable Eduardo Monk Admitting Unavailab Eduardo Connolly Attending Unavailab Adelaida Wagner Primary Care Unavailable Andreina Vieira Consulting Unavailable Camilla Pina Consulting Unavailable Ruchi Hurtado Consulting Unavailable Lisa [...] Ruiz Consulting Unavailable Lacho Singh Consulting Unavailable Rachana Hobson Consulting Unavailable [place] Consulting Unavailable Jeff Alvarez Consulting Unavailable Urmila Rinaldi Consulting Unavailable Bina Mayberry Consulting Unavailable Mir Bradford Consulting Unavailable Te Da Silva Consulting Unavailable Debra Landaverde Consulting Unavailable Jace Graham Admitting Unavailable Jace Graham Attending Unavailable Adelaida Carrion Primary Care Unavailable Eduardo Monk Admitting Unavailab Eduardo Connolly Attending Unavailab Adelaida Wagner Primary Care Unavailable Allergies Allergy Classification Reported Allergen(s) Allergy Type Date of Onset Reaction(s) Facility (7 sources) Adhesive Tape; Translations: [ADHESIVE TAPE] Propensity to adverse reactions (disorder) 04-06-19 14 rash [facility] (3 sources) levETIRAcetam; Translations: [KEPPRA] Drug Allergy 07-02-19 19 [facility] (3 sources) milnacipran; Translations: [SAVELLA] Drug Allergy 03-14-20 13 [facility] (1 source) Penicillin; Translations: [PENICILLIN] Drug Allergy 01-16-20 18 [facility] (5 sources) Prochlorperazin e; Translations: [COMPAZINE] Drug Allergy 03-14-20 13 agitation [facility] (12 sources) Tetracycline; Translations: [TETRACYCLINE] Drug Allergy 04-06-19 13 Hives, Unknown [facility] (4 sources) Penicillins Drug allergy (disorder) 04-06-19 13 Unknown Reaction [facility] (9 sources) levETIRAcetam; Translations: [levetiracetam] Drug Allergy 12-13-19 22 Hallucinations , Other [facility] (9 sources) milnacipran; Translations: [milnacipran] Drug Allergy 12-13-19 22 hives, Hallucinations , Other, Unknown [facility] (7 sources) Prochlorperazin e; Translations: [prochlorperazi ne] Drug Allergy 12-13-19 22 Unknown, Other [facility] (2 sources) Penicillin G Drug Allergy as a child [facility] Other (2 sources) Tetracaine Drug Allergy Unknown [facility] Other (4 sources) Penicillins Drug Intolerance 12-13-19 22 Anaphylaxis [facility] (4 sources) Other Propensity to adverse reactions 12-13-19 22 Other [facility] (4 sources) Wound Dressing Adhesive Drug Allergy 09-20-19 23 Rash, Unknown [facility] (1 source) Penicillin Drug Allergy 12-20-19 23 [facility] (1 source) Penicillins Drug allergy (disorder) 03-23-20 23 [facility] (1 source) Tetracaine Drug Allergy 12-20-19 [facility] Medications Current Medications Medication Drug [...] Start: 12-19-2022 take 1 tablet by kenyatta every other day Diflucan 150 MG 1 [...] 2022 11:00pm take 2 tablets by mo [facility] at bedtime gabapentin (Neurontin) 600 MG tablet [...] (8 sources) Angiotensin 2 Receptor Jim Start: take 100 mg by mouth once daily [...] 23, 2023 12:00am take 2 tablets by [facility] once daily at bedtime Melatonin 10 MG 2 TABLETS Orally QHS Active Melatonin 12 MG tablet dispersible (4 sources) Melatonin 12 MG tablet dispersible 1 (one) time each day at the same time. 0 Active Multiple Vitamins-Minerals (BARIATRIC MULTIVITAMINS/IRON PO) (4 sources) Multiple Vitamins-Minerals (BARIATRIC MULTIVITAMINS/IRON PO) Bariatric Multivitamins/Iron 0 Active Bxukerltpcvf-Hea-Hpge-Fa- Vit K (Bariatric Multivitamins) 45 mg iron- 800 mcg-120 mcg Capsule (2 sources) Start: 11-17-2022 take 1 capsule by mouth once daily Qnigpmdvyfma-Wjo-Henr-Fa -Vit K (Bariatric Multivitamins) 45 mg iron- 800 mcg-120 mcg Capsule Active 1 CAP PO Daily November 16, 2022 11:00pm Start: 11-17-2022 take 1 capsule by [facility] once daily Gqwnwdsvgsep-Xlo-Bmbi-Fa-Vit K (Bariatri c Multivitamins) 45 mg iron- 800 mcg-120 mcg Capsule Active 1 CAP PO Daily November 17, 2022 12:00am nystatin 100 unt/mg topical powder (4 sources) Polyene Antifungal nystatin (Myc ostatin) 959641 UNIT/GM powder Apply 1 application topically in the morning and 1 application before bedtime. 0 Active OLANZapine 5 mg oral tablet (6 sources) Atypical Antipsychotic Start: take 5 mg by mouth every six hours Olanzapine Active 5 MG PO Q6H 30 15 November 17, 2022 11:00pm [facility] six hours as needed OLANZapine zydis [...] without esophagitis; Translations: [Gastroesophageal reflux disease] Onset: 07-17-1905-18-2023 Chronic Essential hypertension (15 sources) Essential (primary) hypertension; Translations: [Hypertensive disorder] Onset: 07-17-19 Chronic Gout and other crystal arthropathies (5 sources) Gout, unspecified; Translations: [Gouty arthritis of right foot] Onset: 11-23-19 22 05-18-2023 Chronic Heart valve disorders (4 sources) Heart murmur; Translations: [Cardiac murmur, unspecified] Onset: 05-18-1905-18-2023 Episodic Hemorrhoids (4 sources) Hemorrhoids; Translations: [Unspecified hemorrhoids] Onset: 05-18-1905-18-2023 Episodic Mood disorders (20 sources) Bipolar disorder, current episode depressed, severe, without psychotic features; Translations: [Unspecified mood [affective] disorder] Onset: 11-23-1911-17-2022 Chronic Mycoses (6 sources) Candidiasis of skin [...] 24 05-18-2023 Episodic Other connective tissue disease (4 sources) Fibromyalgia; Translations: [Fibromyalgia] Onset: 05-18-1905-18-2023 Episodic Other diseases of bladder and urethra (6 sources) Overactive bladder; Translations: [Overactive bladder] Onset: 05-18-19 24 05-18-2023 Chronic Other gastrointestinal disorders (1 source) Bariatric surgery status; Translations: [BARIATRIC SURGERY STATUS] Onset: 08-01-19 Episodic Other gastrointestinal disorders (4 sources) History of bariatric surgical procedure; Translations: [Bariatric surgery status] Onset: 05-18-19 24 05-18-2023 Episodic Other gastrointestinal disorders (4 sources) Dysphagia; Translations: [Dysphagia, unspecified] Onset: 05-18-1905-18-2023 Episodic Other gastrointestinal disorders (4 sources) Constipation; [...] 02-20-2022 Episodic Other aftercare (1 source) Other [facility] (current) drug therapy; Translations: [OTH BOILER FITTER CURRENT DRUG THERAPY] Onset: 04-29-2022 Episodic Other [...] on 03-23-2023 Amphetamines Ql (U) Negative Negative [facility] Barbiturates [Presence] in U rine by Screen methodOrdered By: Jace Graham on 03-23-2023 Barbiturates Screen Ql (U) Negative Negative [facility] Benzodiazepines Screen Ql (U )Ordered By: Jace Graham on 03-23-2023 Benzodiazepines Ql (U) Negative Negative [facility] Benzoylecgonine [Presence] i n Urine by Screen methodOrdered By: Jace Graham on 03-23-2023 Benzoylecgonine Screen Ql (U) Negative Negative [facility] Cannabinoids [Presence] in U rine by Screen methodOrdered By: Jace Graham on 03-23-2023 Cannabinoids Screen Ql (U) Negative Negative [facility] Comment on above: These are unconfirme d results and should not be used for legal purposes. Drug Cut-Off Concentration: AMPH 1000 ng/mL ELKIN 200 ng/mL ATIYA 200 ng/mL COCM 300 ng/mL OP 300 ng/mL PCP 25 ng/mL THC 20 ng/mL Drug Screen,Urineon 03-23-20 23 Amphetamine Screen,Urine Negative Normal Negative [facility] Comment on above: Performed By: #### U RDS #### [address] Barbiturate Screen,Urine Negative Normal Negative [facility] Comment on above: Performed By: #### U RDS #### [address] Benzodiazepines Screen,Urine Negative Normal Negative [facility] Comment on above: Performed By: #### U RDS #### [address] Cannabinoid Screen,Urine Negative Normal Negative [facility] Comment on above: Result Comment: Thes e are unconfirmed results and should not be used for legal purposes. Drug Cut-Off Concentration: AMPH 1000 ng/mL ELKIN 200 ng/mL ATIYA 200 ng/mL COCM 300 ng/mL OP 300 ng/mL PCP 25 ng/mL THC 20 ng/mL PERFORMED BY: [place] [address] PATHOLOGIST SURGERY SPECIALIST AN CURRY M.D. Performed By: #### U RDS #### [place] [address] [place] Cocaine Screen,Urine Negative Normal Negative [facility] Comment on above: Performed By: #### U RDS #### [place] [address] [place] Opiate Screen,Urine Negative Normal Negative [facility] Comment on above: Performed By: #### U RDS #### [address] Phencyclidine Screen,Urine Negative Normal Negative [facility] Comment on above: Performed By: #### U RDS #### [address] [place] [address] [facility] Opiates [Presence] in Urine by Screen methodOrdered By: Jace Graham on 03-23-2023 Opiates Screen Ql (U) Negative Negative [facility] Phencyclidine Screen Ql (U)O rdered By: Jace Graham on 03-23-2023 Phencyclidine Ql (U) Negative Negative [facility] Cholesterol [Mass/volume] in Serum or PlasmaOrdered By: Eduardo Monk on 11-18-2022 Cholesterol [Mass/Vol] 159 mg/dL 140-200 [facility] Comment on above: Chol less than 200 m g/dl low riskChol 201-239 mg/dl borderline riskChol 240 mg/dl and greater high risk Cholesterol in LDL Calc [Mas s/Vol]Ordered By: Eduardo Monk on 11-18-2022 Cholesterol in LDL [Mass/Vol] 84 mg/dL 0-100 [facility] Comment on above: LDL ATP III CLASSIFI CATIONLDL less than 100 mg/dL OptimalLDL 100-129 mg/dL Near or above optimalLDL 130-159 mg/dL Borderline highLDL 160-189 mg/dL HighLDL greater than 189 mg/dL Very high Cholesterol in VLDL Calc [Ma ss/Vol]Ordered By: Eduardo Monk on 11-18-2022 Cholesterol in VLDL [Mass/Vol] 28 mg/dL [facility] Lipid Panelon 11-18-2022 Cholesterol [Mass/Vol] 159 mg/dL Normal 140-200 [facility] Comment on above: Order Comment: teri barney to tomorrow morning Result Comment: Chol less than 200 mg/dl low risk Chol 201-239 mg/dl borderline risk Chol 240 mg/dl and greater high risk Performed By: #### L IPID #### [facility] [address] [id number] [facility] Cholesterol in HDL [Mass/Vol] 46 mg/dL Normal 23-92 [facility] Comment on above: Order Comment: teri barney to tomorrow morning Result Comment: HDL CHOL ATP-III CLASSIFICATION Cardiovascular Risk HDL > or equal to 60 mg/dL LOW HDL < 40 mg/dL HIGH Performed By: #### L IPID #### [facility] [address] Cholesterol.total/Chol esterol in HDL [Mass ratio] 3.5 {ratio} Normal <5.0 [facility] Comment on above: Order Comment: teri barney to tomorr morning Result Comment: PERF ORMED BY: [place] [address] PATHOLOGIST SURGERY SPECIALIST AN CURRY M.D. Performed By: #### L IPID #### [facility] [address] LDL Cholesterol,Calculated 84 mg/dL Normal 0-100 [facility] Comment on above: Order Comment: teri barney to orr morning Result Comment: LDL ATP III CLASSIFICATION LDL less than 100 mg/dL Optimal LDL 100-129 mg/dL Near or above optimal LDL 130-159 mg/dL Borderline high LDL 160-189 mg/dL High LDL greater than 189 mg/dL Very high Performed By: #### L IPID #### [facility] [address] Triglyceride w/Reflex 144 mg/dL Normal 0-149 [facility] Comment on above: Order Comment: teri barney to orr morning Result Comment: TRIG ATP III CLASSIFICATION TRIG less than 150 mg/dL Normal TRIG 150-199 mg/dL Borderline high TRIG 200-500 mg/dL High TRIG greater than 500 mg/dL Very high Standard traceable to the Center for Disease Conrtrol and Prevention (CDC) test method. Performed By: #### L IPID #### [facility] [address] VLDL CHOLESTEROL 28 mg/dL Normal [facility] Comment on above: Order Comment: teri barney to Performed By: #### L IPID #### [facility] [address] Serum or plasma high density lipoprotein (HDL) cholesterol measurementOrdered By: Eduardo Monk on 11-18-2022 Cholesterol in HDL [Mass/Vol] 46 mg/dL 23-92 [facility] Comment on above: HDL CHOL ATP-III CLA SSIFICATION Cardiovascular RiskHDL > or equal to 60 mg/dL LOWHDL < 40 mg/dL HIGH Serum or plasma total choles terol/high density lipoprotein (HDL) cholesterol mass ratOrdered By: Eduardo Monk on 11-18-2022 Cholesterol.total/Chol esterol in HDL [Mass ratio] 3.5 {ratio} <5.0 [facility] Thyroid Stimulating Hormoneo n 11-18-2022 TSH Qn 2.13 m[IU]/L Normal 0.45-5.33 [facility] Comment on above: Performed By: #### T SH3, [id number] #### [facility] [address] Thyrotropin [Units/volume] i n Serum or PlasmaOrdered By: Eduardo Monk on 11-18-2022 TSH Qn 2.13 m[IU]/L 0.45-5.33 [facility] Triglyceride [Mass/volume] i n Serum or PlasmaOrdered By: Eduardo Monk on 11-18-2022 Triglyceride [Mass/Vol] 144 mg/dL 0-149 [facility] Comment on above: TRIG ATP III CLASSIF ICATIONTRIG less than 150 mg/dL NormalTRIG 150-199 mg/dL Borderline highTRIG 200-500 mg/dL High TRIG greater than 500 mg/dL Very highStandard traceable to the Center for Disease Conrtrol and Prevention (CDC) test method. Vitamin D 25 Hydroxy Totalon 11-18-2022 Vitamin D 25 Hydroxy Total 50.4 ng/mL Normal 30-100 [facility] Comment on above: Result Comment: SKYLER MIN D STATUS 25(OH)VITAMIN D RANGE (ng/mL) Deficient <20 Insufficient 20 to <30 Sufficient 30 to 100 Reference: Bin MF,Lakshmi NC, Leo-Glen SMART, et al. Evaluation,treatment, and prevention of vitamin D deficiency; an Endocrine Society clinical practice guideline. JCEM. 2010; 96(7):1911-30. PERFORMED BY: [facility] [address] [place] [address] PATHOLOGIST SURGERY SPECIALIST AN CURRY M.D. Performed By: #### T SH3, [id number] #### [facility] [address] Vitamin D+Metabolites [Mass/ volume] in Serum or PlasmaOrdered By: Eduardo Monk on 11-18-2022 Vitamin D+Metabolites [Mass/Vol] 50.4 ng/mL 30-100 [facility] Comment on above: VITAMIN D STATUS 25( [place])VITAMIN D RANGE (ng/mL) Deficient <20 Insufficient 20 to <30Sufficient 30 to 100Reference: Bin MF,Lakshmi CABRERA, Cristian SMART, et al. Evaluation,treatment, and prevention of vitamin D deficiency; an Endocrine Society clinical practice guideline. JCEM. 2010; 96(7):1911-30. CBC AUTO DIFFon 07-25-2022 BASO # 0.1 103/ul Normal 0.0-0.1 [facility] Comment on above: Performed By: #### A 1C #### [facility] [address] [place] [address] Dr. Bebeto Alvarado Basophils/100 WBC (Bld) 0.6 % Normal 0.2-2.0 [facility] Comment on above: Performed By: #### A 1C #### [facility] [address] [place] [address] Dr. Bebeto Alvarado EO # 0.2 103/ul Normal 0.0-0.7 [facility] Comment on above: Performed By: #### A 1C #### [facility] [address] [address] [address] Bebeto Alvarado Eosinophils/100 WBC (Bld) 2.3 % Normal 0.9-7.0 [facility] Comment on above: Performed By: #### A 1C #### [facility] [address] [address] [address] Bebeto Alvarado Erythrocyte distribution width (RBC) [Ratio] 13.8 % Normal 11.0-15.0 [facility] Comment on above: Performed By: #### A 1C #### [facility] [address] [address] [address] Bebeto Alvarado Hematocrit (Bld) [Volume fraction] 41.2 % Normal 36.0-48.0 [facility] Comment on above: Performed By: #### A 1C #### [facility] [address] [place] [address] Dr. Bebeto Alvarado Hemoglobin (Bld) [Mass/Vol] 13.2 g/dL Normal 12.0-16.0 [facility] Comment on above: Performed By: #### A 1C #### [facility] [address] [place] [address] Dr. Bebeto Alvarado IG # 0.03 10e3/ul Normal 0.00-0.03 [facility] Comment on above: Performed By: #### A 1C #### [facility] [address] [place] [address] Dr. Bebeto Alvarado IG % 0.4 % Normal 0.0-0.5 [facility] Comment on above: Performed By: #### A 1C #### [facility] [address] [place] [address] Dr. Bebeto Alvarado LYMPH # 2.1 103/ul Normal 1.2-3.8 [facility] Comment on above: Performed By: #### A 1C #### [facility] [address] [place] [address] Dr. Bebeto Alvarado Lymphocytes/100 WBC (Bld) 25.9 % Normal 20.5-60.0 [facility] Comment on above: Performed By: #### A 1C #### [facility] [address] [place] [address] Dr. Bebeto Alvarado MANUAL DIFF REQ NO Normal [facility] Comment on above: Performed By: #### A 1C #### [facility] [address] [place] [address] Dr. Bebeto Alvarado MCH (RBC) [Entitic mass] 28.0 pg Normal 26.7-34.0 [facility] Comment on above: Performed By: #### A 1C #### [facility] [address] [place] [address] Dr. Bebeto Alvarado MCHC (RBC) [Mass/Vol] 32.0 g/dL Normal 29.9-35.2 [facility] Comment on above: Performed By: #### A 1C #### [facility] [address] [address] [address] Bebeto Alvarado MCV (RBC) [Entitic vol] 87.5 fL Normal 81.0-99.0 [facility] Comment on above: Performed By: #### A 1C #### [facility] [address] [address] [address] Bebeto Alvarado MONO # 0.5 103/ul Normal 0.3-0.8 [facility] Comment on above: Performed By: #### A 1C #### [facility] [address] [address] [address] Bebeto Alvarado Monocytes/100 WBC (Bld) 6.6 % Normal 1.7-12.0 [facility] Comment on above: Performed By: #### A 1C #### [facility] [address] [place] [address] Dr. Bebeto Alvarado NEUT # 5.1 103/ul Normal 1.4-6.5 [facility] Comment on above: Performed By: #### A 1C #### [facility] [address] [place] [address] Dr. Bebeto Alvarado Neutrophils/100 WBC (Bld) 64.2 % Normal 43.0-75.0 [facility] Comment on above: Performed By: #### A 1C #### [facility] [address] [address] [address] Bebeto Alvarado Platelet mean volume (Bld) [Entitic vol] 11.2 fL Normal 9.5-13.5 [facility] Comment on above: Performed By: #### A 1C #### [facility] [address] [place] [address] Dr. Bebeto Alvarado PLT 252 103/ul Normal 150-450 [facility] Comment on above: Performed By: #### A 1C #### [facility] [address] [address] [address] Bebeto Alvarado RBC 4.71 106/ul Normal 4.20-5.40 [facility] Comment on above: Performed By: #### A 1C #### [facility] [address] [address] [address] Bebeto Alvarado WBC 8.0 103/ul Normal 4.0-11.0 [facility] Comment on above: Performed By: #### A 1C #### [facility] [address] [address] [address] Bebeto Alvarado GLYCOHEMOGLOBIN A1Con 2022 ADA RECOMMENDATION SEE BELOW Normal [facility] Comment on above: Result Comment: ADA RECOMMENDED LIMIT 4.0 - 6.0 ADA THERAPEUTIC TARGET < 7.0 ACTION SUGGESTED > 7.0 Performed By: #### A 1C #### [facility] [address] [address] [address] Bebeto Alvarado Glucose [Mass/Vol] 114 mg/dL Normal [facility] Comment on above: Performed By: #### A 1C #### [facility] [address] [place] [address] Dr. Bebeto Alvarado HbA1c (Bld) [Mass fraction] 5.6 % Normal 4.5-6.2 [facility] Comment on above: Performed By: #### A 1C #### [facility] [address] [address] [address] Bebeto Alvarado IRONon 07-25-2022 Iron [Mass/Vol] 60.0 ug/dL Normal 50.0-170.0 [facility] Comment on above: Performed By: #### V ITB12, IRON #### [facility] [address] [address] [address] Bebeto Alvarado LIPID PROFILEon 07-25-2022 CHOL-HDL RATIO NORM SEE BELOW Normal [facility] Comment on above: Result Comment: 3.3 - 4.4 LOW RISK 4.4 - 7.1 AVERAGE RISK 7.1 - 11.0 MODERATE RISK >11.0 HIGH RISK Performed By: #### C MP, LIPID #### [facility] [address] [place] [address] Dr. Bebeto Alvarado Cholesterol [Mass/Vol] 144 mg/dL Normal <=200 [facility] Comment on above: Performed By: #### C MP, LIPID #### [facility] [address] [address] [address] Bebeto Alvarado Cholesterol in HDL [Mass/Vol] 39 mg/dL Critically low 40-60 [facility] Comment on above: Performed By: #### C MP, LIPID #### [facility] [address] [address] [address] Bebeto Alvarado Cholesterol in LDL [Mass/Vol] 74.6 mg/dL Normal [facility] Comment on above: Performed By: #### C MP, LIPID #### [facility] [address] [address] [address] Bebeto Alvarado Cholesterol.total/Chol esterol in HDL [Mass ratio] 3.7 {ratio} Normal [facility] Comment on above: Performed By: #### C MP, LIPID #### [facility] [address] [place] [address] Dr. Bebeto Alvarado HDL NORMAL > or = 60 mg/dl - LO W CARDIOVASCULAR RISK <40 mg/dl - HIGH CARDIOVASCULAR RISK Normal [facility] Comment on above: Performed By: #### C MP, LIPID #### [facility] [address] [address] [address] Bebeto Alvarado LDL CALC NORMAL SEE BELOW Normal [facility] Comment on above: Result Comment: <100 mg/dl OPTIMAL 100 - 129 mg/dl NEAR OR ABOVE OPTIMAL 130 - 159 mg/dl BORDERLINE HIGH 160 - 189 mg/dl HIGH >190 mg/dl VERY HIGH Performed By: #### C MP, LIPID #### [facility] [address] [address] [address] Bebeto Alvarado Triglyceride [Mass/Vol] 152 mg/dL Critically high <=150 [facility] Comment on above: Performed By: #### C MP, LIPID #### [facility] [address] [place] [address] Dr. Bebeto Alvarado VLDL CALC 30.4 mg/dL Normal [facility] Comment on above: Performed By: #### C MP, LIPID #### [facility] [address] [address] [address] Bebeto Alvarado PROF 14(COMP METB)on 023 Albumin [Mass/Vol] 3.7 g/dL Normal 3.4-5.0 [facility] Comment on above: Performed By: #### C MP, LIPID #### [facility] [address] [place] [address] Dr. Bebeto Alvarado Albumin/Globulin [Mass ratio] 0.9 {ratio} Normal [facility] Comment on above: Performed By: #### C MP, LIPID #### [facility] [address] [place] [address] Dr. Bebeto Alvarado ALP [Catalytic activity/Vol] 90 U/L Normal 46-116 [facility] Comment on above: Performed By: #### C MP, LIPID #### [facility] [address] [place] [address] Dr. Bebeto Alvarado ALT [Catalytic activity/Vol] 38 U/L Normal 14-59 [facility] Comment on above: Performed By: #### C MP, LIPID #### [facility] [address] [place] [address] Dr. Bebeto Alvarado Anion gap [Moles/Vol] 12.1 mmol/L Normal [facility] Comment on above: Performed By: #### C MP, LIPID #### [facility] [address] [place] [address] Dr. Bebeto Alvarado AST [Catalytic activity/Vol] 26 U/L Normal 15-37 [facility] Comment on above: Performed By: #### C MP, LIPID #### [facility] [address] [place] [address] Dr. Bebeto Alvarado Bilirubin [Mass/Vol] 0.3 mg/dL Normal 0.2-1.0 [facility] Comment on above: Performed By: #### C MP, LIPID #### [facility] [address] [place] [address] Dr. Bebeto Alvarado Calcium [Mass/Vol] 9.3 mg/dL Normal 8.5-10.1 [facility] Comment on above: Performed By: #### C MP, LIPID #### [facility] [address] [place] [address] Dr. Bebeto Alvarado Chloride [Moles/Vol] 107 mmol/L Normal 98-107 [facility] Comment on above: Performed By: #### C MP, LIPID #### [facility] [address] [place] [address] Dr. Bebeto Alvarado CO2 [Moles/Vol] 27.9 mmol/L Normal 21.0-32.0 [facility] Comment on above: Performed By: #### C MP, LIPID #### [facility] [address] [place] [address] Dr. Bebeto Alvarado Creatinine [Mass/Vol] 0.95 mg/dL Normal 0.55-1.02 [facility] Comment on above: Performed By: #### C MP, LIPID #### [facility] [address] [place] [address] Dr. Bebeto Alvarado EGFR-AF KOSOVAN >60 Normal >=60 [facility] Comment on above: Performed By: #### C MP, LIPID #### [facility] [address] [place] [address] Dr. Bebeto Alvarado EGFR-NON AF KOSOVAN 60 mL/min/1.73m2 Normal >=60 [facility] Comment on above: Performed By: #### C MP, LIPID #### [facility] [address] [place] [address] Dr. Bebeto Alvarado Globulin (S) [Mass/Vol] 3.9 g/dL Normal [facility] Comment on above: Performed By: #### C MP, LIPID #### [facility] [address] [place] [address] Dr. Bebeto Alvarado Glucose [Mass/Vol] 108 mg/dL Critically high 74-106 [facility] Comment on above: Performed By: #### C MP, LIPID #### [facility] [address] [place] [address] Dr. Bebeto Alvarado Potassium [Moles/Vol] 4.0 mmol/L Normal 3.5-5.1 [facility] Comment on above: Performed By: #### C MP, LIPID #### [facility] [address] [place] [address] Dr. Bebeto Alvarado Protein [Mass/Vol] 7.6 g/dL Normal 6.4-8.2 [facility] Comment on above: Performed By: #### C MP, LIPID #### [facility] [address] [place] [address] Dr. Bebeto Alvarado Sodium [Moles/Vol] 143 mmol/L Normal 136-145 [facility] Comment on above: Performed By: #### C MP, LIPID #### [facility] [address] [place] [address] Dr. Bebeto Alvarado Urea nitrogen [Mass/Vol] 15.0 mg/dL Normal 7.0-18.0 [facility] Comment on above: Performed By: #### C MP, LIPID #### [facility] [address] [place] [address] Dr. Bebeto Alvarado Urea nitrogen/Creatinine [Mass ratio] 15.8 mg/mg Normal [facility] Comment on above: Performed By: #### C MP, LIPID #### [facility] [address] [place] [address] Dr. Bebeto Alvarado UA RANDOM W/MICROSCOPICon BACTERIA NONE SEEN Normal NONE SEEN [facility] Comment on above: Performed By: #### A 1C #### [facility] [address] [place] [address] Dr. Bebeto Alvarado Bilirubin Ql (U) Negative Normal NEGATIVE [facility] Comment on above: Performed By: #### A 1C #### [facility] [address] [place] [address] Dr. Bebeto Alvarado CAST NONE SEEN Normal NONE SEEN [facility] Comment on above: Performed By: #### A 1C #### [facility] [address] [place] [address] Dr. Bebeto Alvarado Clarity (U) CLEAR Normal CLEAR [facility] Comment on above: Performed By: #### A 1C #### [facility] [address] [place] [address] Dr. Bebeto Alvarado Color (U) YELLOW Normal YELLOW [facility] Comment on above: Performed By: #### A 1C #### [facility] [address] [place] [address] Dr. Bebeto Alvarado Crystals LM Nom (Urine sed) NONE SEEN Normal NONE SEEN [facility] Comment on above: Performed By: #### A 1C #### [facility] [address] [place] [address] Dr. Bebeto Alvarado Epithelial cells LM Ql (Urine sed) NONE SEEN Normal NONE SEEN /RARE [facility] Comment on above: Performed By: #### A 1C #### [facility] [address] [place] [address] Dr. Bebeto Alvarado Glucose Ql (U) Negative Normal NEGATIVE [facility] Comment on above: Performed By: #### A 1C #### [facility] [address] [place] [address] Dr. Bebeto Alvarado Hemoglobin Ql (U) Negative Normal NEGATIVE [facility] Comment on above: Performed By: #### A 1C #### [facility] [address] [place] [address] Dr. Bebeto Alvarado Ketones Ql (U) Negative Normal NEGATIVE [facility] Comment on above: Performed By: #### A 1C #### [facility] [address] [place] [address] Dr. Bebeto Alvarado LEUKOCYTES Negative Normal NEGATIVE [facility] Comment on above: Performed By: #### A 1C #### [facility] [address] [place] [address] Dr. Bebeto Alvarado MUCOUS NONE SEEN Normal NONE SEEN [facility] Comment on above: Performed By: #### A 1C #### [facility] [address] [place] [address] Dr. Bebeto Alvarado Nitrite Ql (U) Negative Normal NEGATIVE [facility] Comment on above: Performed By: #### A 1C #### [facility] [address] [place] [address] Dr. Bebeto Alvarado pH (U) 5.5 [pH] Normal 5-9 [facility] Comment on above: Performed By: #### A 1C #### [facility] [address] [place] [address] Dr. Bebeto Alvarado RBC NONE SEEN Abnormal 0-2 [facility] Comment on above: Performed By: #### A 1C #### [facility] [address] [place] [address] Dr. Bebeto Alvarado SPEC GRAVITY 1.030 Abnormal 1.005-<=1.02 5 [facility] Comment on above: Performed By: #### A 1C #### [facility] [address] [place] [address] Dr. Bebeto Alvarado UA PROTEIN Negative Normal NEGATIVE/ TRACE [facility] Comment on above: Performed By: #### A 1C #### [facility] [address] [place] [address] Dr. Bebeto Alvarado Urobilinogen Qn (U) 0.2 {Katerin'U}/dL Normal 0.2 - 1. 0 [facility] Comment on above: Performed By: #### A 1C #### [facility] [address] [place] [address] Dr. Bebeto Alvarado WBC NONE SEEN Normal NONE SEEN [facility] Comment on above: Performed By: #### A 1C #### [facility] [address] [place] [address] Dr. Bebeto Alvarado VITAMIN B12on 07-25-2022 Cobalamin (Vitamin B12) [Mass/Vol] 1684.0 pg/mL Critically high 193.0-986.0 [facility] Comment on above: Performed By: #### V ITB12, IRON #### [facility] [address] [place] [address] Dr. Bebeto Alvarado PROF CHEM 8 (BAS METB)on Anion gap [Moles/Vol] 12.2 mmol/L Normal [facility] Comment on above: Performed By: #### B MP #### [facility] [address] [place] [address] Dr. Bebeto Alvarado Calcium [Mass/Vol] 8.9 mg/dL Normal 8.5-10.1 [facility] Comment on above: Performed By: #### B MP #### [facility] [address] [place] [address] Dr. Bebeto Alvarado Chloride [Moles/Vol] 105 mmol/L Normal 98-107 [facility] Comment on above: Performed By: #### B MP #### [facility] [address] [address] [address] Bebeto Alvarado CO2 [Moles/Vol] 29.6 mmol/L Normal 21.0-32.0 [facility] Comment on above: Performed By: #### B MP #### [facility] [address] [address] [address] Bebeto Alvarado Creatinine [Mass/Vol] 0.95 mg/dL Normal 0.55-1.02 [facility] Comment on above: Performed By: #### B MP #### [facility] [address] [address] [address] Bebeto Alvarado EGFR-AF KOSOVAN >60 Normal >=60 [facility] Comment on above: Performed By: #### B MP #### [facility] [address] [address] [address] Bebeto Alvarado EGFR-NON AF KOSOVAN 60 mL/min/1.73m2 Normal >=60 [facility] Comment on above: Performed By: #### B MP #### [facility] [address] [address] [address] Bebeto Alvarado Glucose [Mass/Vol] 101 mg/dL Normal 74-[address] [facility] Comment on above: Performed By: #### B MP #### [facility] [address] [address] [address] Bebeto Alvraado Potassium [Moles/Vol] 3.8 mmol/L Normal 3.5-5.1 [facility] Comment on above: Performed By: #### B MP #### [facility] [address] [address] [address] Bebeto Alvarado Sodium [Moles/Vol] 143 mmol/L Normal 136-[address] [facility] Comment on above: Performed By: #### B MP #### [facility] [address] [address] [address] Bebeto Alvarado Urea nitrogen [Mass/Vol] 16.0 mg/dL Normal 7.0-18.0 [facility] Comment on above: Performed By: #### B MP #### [facility] [address] [place] [address] Dr. Bebeto Alvarado Urea nitrogen/Creatinine [Mass ratio] 16.8 mg/mg Normal [facility] Comment on above: Performed By: #### B MP #### [facility] [address] [place] [address] Dr. Bebeto Alvarado CBC AUTO DIFFon 11-21-2021 BASO # 0.1 103/ul Normal 0.0-0.1 [facility] Comment on above: Performed By: #### A 1C #### [facility] [address] [place] [address] Dr. Bebeto Alvarado Basophils/100 WBC (Bld) 1.0 % Normal 0.2-2.0 [facility] Comment on above: Performed By: #### A 1C #### [facility] [address] [place] [address] Dr. Bebeto Alvarado EO # 0.2 103/ul Normal 0.0-0.7 [facility] Comment on above: Performed By: #### A 1C #### [facility] [address] [place] [address] Dr. Bebeto Alvarado Eosinophils/100 WBC (Bld) 3.3 % Normal 0.9-7.0 [facility] Comment on above: Performed By: #### A 1C #### [facility] [address] [place] [address] Dr. Bebeto Alvarado Erythrocyte distribution width (RBC) [Ratio] 13.8 % Normal 11.0-15.0 [facility] Comment on above: Performed By: #### A 1C #### [facility] [address] [place] [address] Dr. Bebeto Alvarado Hematocrit (Bld) [Volume fraction] 38.8 % Normal 36.0-48.0 [facility] Comment on above: Performed By: #### A 1C #### [facility] [address] [place] [address] Dr. Bebeto Alvarado Hemoglobin (Bld) [Mass/Vol] 12.5 g/dL Normal 12.0-16.0 [facility] Comment on above: Performed By: #### A 1C #### [facility] [address] [place] [address] Dr. Bebeto Alvarado IG # 0.02 10e3/ul Normal 0.00-0.03 [facility] Comment on above: Performed By: #### A 1C #### [facility] [address] [place] [address] Dr. Bebeto Alvarado IG % 0.3 % Normal 0.0-0.5 [facility] Comment on above: Performed By: #### A 1C #### [facility] [address] [place] [address] Dr. Bebeto Alvarado LYMPH # 1.9 103/ul Normal 1.2-3.8 [facility] Comment on above: Performed By: #### A 1C #### [facility] [address] [place] [address] Dr. Bebeto Alvarado Lymphocytes/100 WBC (Bld) 29.6 % Normal 20.5-60.0 [facility] Comment on above: Performed By: #### A 1C #### [facility] [address] [place] [address] Dr. Bebeto Alvarado MANUAL DIFF REQ NO Normal [facility] Comment on above: Performed By: #### A 1C #### [facility] [address] [place] [address] Dr. Bebeto Alvarado MCH (RBC) [Entitic mass] 28.0 pg Normal 26.7-34.0 [facility] Comment on above: Performed By: #### A 1C #### [facility] [address] [place] [address] Dr. Bebeto Alvarado MCHC (RBC) [Mass/Vol] 32.2 g/dL Normal 29.9-35.2 [facility] Comment on above: Performed By: #### A 1C #### [facility] [address] [place] [address] Dr. Bebeto Alvarado MCV (RBC) [Entitic vol] 86.8 fL Normal 81.0-99.0 [facility] Comment on above: Performed By: #### A 1C #### [facility] [address] [place] [address] Dr. Bebeto Alvarado MONO # 0.4 103/ul Normal 0.3-0.8 [facility] Comment on above: Performed By: #### A 1C #### [facility] [address] [place] [address] Dr. Bebeto Alvarado Monocytes/100 WBC (Bld) 5.7 % Normal 1.7-12.0 [facility] Comment on above: Performed By: #### A 1C #### [facility] [address] [place] [address] Dr. Bebeto Alvarado NEUT # 3.8 103/ul Normal 1.4-6.5 [facility] Comment on above: Performed By: #### A 1C #### [facility] [address] [place] [address] Dr. Bebeto Alvarado Neutrophils/100 WBC (Bld) 60.1 % Normal 43.0-75.0 [facility] Comment on above: Performed By: #### A 1C #### [facility] [address] [place] [address] Dr. Bebeto Alvarado Platelet mean volume (Bld) [Entitic vol] 11.0 fL Normal 9.5-13.5 [facility] Comment on above: Performed By: #### A 1C #### [facility] [address] [place] [address] Dr. Bebeto Alvarado PLT 264 103/ul Normal 150-450 [facility] Comment on above: Performed By: #### A 1C #### [facility] [address] [place] [address] Dr. Bebeto Alvarado RBC 4.47 106/ul Normal 4.20-5.40 [facility] Comment on above: Performed By: #### A 1C #### [facility] [address] [place] [address] Dr. Bebeto Alvarado WBC 6.3 103/ul Normal 4.0-11.0 [facility] Comment on above: Performed By: #### A 1C #### [facility] [address] [place] [address] Dr. Bebeto Alvarado GLYCOHEMOGLOBIN A1Con 2021 ADA RECOMMENDATION SEE BELOW Normal [facility] Comment on above: Result Comment: ADA RECOMMENDED LIMIT 4.0 - 6.0 ADA THERAPEUTIC TARGET < 7.0 ACTION SUGGESTED > 7.0 Performed By: #### A 1C #### [facility] [address] [address] [address] Bebeto Alvarado Glucose [Mass/Vol] 105 mg/dL Normal [facility] Comment on above: Performed By: #### A 1C #### [facility] [address] [address] [address] Bebeto Alvarado HbA1c (Bld) [Mass fraction] 5.3 % Normal 4.5-6.2 [facility] Comment on above: Performed By: #### A 1C #### [facility] [address] [place] [address] Dr. Bebeto Alvarado IRONon 11-21-2021 Iron [Mass/Vol] 59.0 ug/dL Normal 50.0-170.0 [facility] Comment on above: Performed By: #### A 1C #### [facility] [address] [place] [address] Dr. Bebeto Alvarado LIPID PROFILEon 11-21-2021 CHOL-HDL RATIO NORM SEE BELOW Normal [facility] Comment on above: Result Comment: 3.3 - 4.4 LOW RISK 4.4 - 7.1 AVERAGE RISK 7.1 - 11.0 MODERATE RISK >11.0 HIGH RISK Performed By: #### C MP, LIPID #### [facility] [address] [place] [address] Dr. Bebeto Alvarado Cholesterol [Mass/Vol] 139 mg/dL Normal <=200 [facility] Comment on above: Performed By: #### C MP, LIPID #### [facility] [address] [place] [address] Dr. Bebeto Alvarado Cholesterol in HDL [Mass/Vol] 35 mg/dL Critically low 40-60 [facility] Comment on above: Performed By: #### C MP, LIPID #### [facility] [address] [address] [address] Bebeto Alvarado Cholesterol in LDL [Mass/Vol] 69.6 mg/dL Normal [facility] Comment on above: Performed By: #### C MP, LIPID #### [facility] [address] [address] [address] Bebeto Alvarado Cholesterol.total/Chol esterol in HDL [Mass ratio] 4.0 {ratio} Normal [facility] Comment on above: Performed By: #### C MP, LIPID #### [facility] [address] [address] [address] Bebeto Alvarado HDL NORMAL > or = 60 mg/dl - LO W CARDIOVASCULAR RISK <40 mg/dl - HIGH CARDIOVASCULAR RISK Normal [facility] Comment on above: Performed By: #### C MP, LIPID #### [facility] [address] [place] [address] Dr. Bebeto Alvarado LDL CALC NORMAL SEE BELOW Normal [facility] Comment on above: Result Comment: <100 mg/dl OPTIMAL 100 - 129 mg/dl NEAR OR ABOVE OPTIMAL 130 - 159 mg/dl BORDERLINE HIGH 160 - 189 mg/dl HIGH >190 mg/dl VERY HIGH Performed By: #### C MP, LIPID #### [facility] [address] [address] [address] Bebeto Alvarado Triglyceride [Mass/Vol] 172 mg/dL Critically high <=150 [facility] Comment on above: Performed By: #### C MP, LIPID #### [facility] [address] [address] [address] Bebeto Alvarado VLDL CALC 34.4 mg/dL Normal [facility] Comment on above: Performed By: #### C MP, LIPID #### [facility] [address] [address] [address] Bebeto Alvarado PROF 14(COMP METB)on 022 Albumin [Mass/Vol] 3.8 g/dL Normal 3.4-5.0 [facility] Comment on above: Performed By: #### C MP, LIPID #### [facility] [address] [address] [address] Bebeto Alvarado Albumin/Globulin [Mass ratio] 1.1 {ratio} Normal [facility] Comment on above: Performed By: #### C MP, LIPID #### [facility] [address] [address] [address] Bebeto Alvarado ALP [Catalytic activity/Vol] 96 U/L Normal 46-116 [facility] Comment on above: Performed By: #### C MP, LIPID #### [facility] [address] [address] [address] Bebeto Alvarado ALT [Catalytic activity/Vol] 25 U/L Normal 14-59 [facility] Comment on above: Performed By: #### C MP, LIPID #### [facility] [address] [address] [address] Bebeto Alvarado Anion gap [Moles/Vol] 11.8 mmol/L Normal [facility] Comment on above: Performed By: #### C MP, LIPID #### [facility] [address] [address] [address] Bebeto Alvarado AST [Catalytic activity/Vol] 20 U/L Normal 15-37 [facility] Comment on above: Performed By: #### C MP, LIPID #### [facility] [address] [address] [address] Bebeto Alvarado Bilirubin [Mass/Vol] 0.4 mg/dL Normal 0.2-1.0 [facility] Comment on above: Performed By: #### C MP, LIPID #### [facility] [address] [address] [address] Bebeto Alvarado Calcium [Mass/Vol] 8.8 mg/dL Normal 8.5-10.1 [facility] Comment on above: Performed By: #### C MP, LIPID #### [facility] [address] [address] [address] Bebeto Alvarado Chloride [Moles/Vol] 106 mmol/L Normal 98-107 [facility] Comment on above: Performed By: #### C MP, LIPID #### [facility] [address] [address] [address] Bebeto Alvarado CO2 [Moles/Vol] 27.0 mmol/L Normal 21.0-32.0 [facility] Comment on above: Performed By: #### C MP, LIPID #### [facility] [address] [address] [address] Bebeto Alvarado Creatinine [Mass/Vol] 0.97 mg/dL Normal 0.55-1.02 [facility] Comment on above: Performed By: #### C MP, LIPID #### [facility] [address] [address] [address] Bebeto Alvarado EGFR-AF KOSOVAN >60 Normal >=60 [facility] Comment on above: Performed By: #### C MP, LIPID #### [facility] [address] [address] [address] Bebeto Alavrado EGFR-NON AF KOSOVAN 59 mL/min/1.73m2 Critically low >=60 [facility] Comment on above: Performed By: #### C MP, LIPID #### [facility] [address] [address] [address] Bebeto Alvarado Globulin (S) [Mass/Vol] 3.4 g/dL Normal [facility] Comment on above: Performed By: #### C MP, LIPID #### [facility] [address] [address] [address] Bebeto Alvarado Glucose [Mass/Vol] 103 mg/dL Normal 74-106 [facility] Comment on above: Performed By: #### C MP, LIPID #### [facility] [address] [address] [address] Bebeto Alvarado Potassium [Moles/Vol] 3.8 mmol/L Normal 3.5-5.1 [facility] Comment on above: Performed By: #### C MP, LIPID #### [facility] [address] [address] [address] Bebeto Alvarado Protein [Mass/Vol] 7.2 g/dL Normal 6.4-8.[address] [facility] Comment on above: Performed By: #### C MP, LIPID #### [facility] [address] [address] [address] Bebeto Alvarado Sodium [Moles/Vol] 141 mmol/L Normal 136-145 [facility] Comment on above: Performed By: #### C MP, LIPID #### [facility] [address] [address] [address] Bebeto Alvarado Urea nitrogen [Mass/Vol] 11.0 mg/dL Normal 7.0-18.0 [facility] Comment on above: Performed By: #### C MP, LIPID #### [facility] [address] [address] [address] Bebeto Alvarado Urea nitrogen/Creatinine [Mass ratio] 11.3 mg/mg Normal [facility] Comment on above: Performed By: #### C MP, LIPID #### [facility] [address] [place] [address] Dr. Bebeto Alvarado URIC ACID SERUMon 11-21-2021 Urate [Mass/Vol] 7.3 mg/dL Critically high 2.6-6.0 [facility] Comment on above: Performed By: #### A 1C #### [facility] [address] [place] [address] Dr. Bebeto Alvarado VITAMIN B12on 11-21-2021 Cobalamin (Vitamin B12) [Mass/Vol] 2123.0 pg/mL Critically high 193.0-986.0 [facility] Comment on above: Performed By: #### A 1C #### [facility] [address] [place] [address] Dr. Bebeto Alvarado Physician Referralon 022 Physician Referral [phone] [id number] Normal [facility] KNEE RIGHT 1 OR 2 Son KNEE RIGHT 1 OR 2 S [facility] Department of Radiology [address] [place] [phone] ======== Patient Name: MICHELLE BE : 1960 Sex: F Age: Race: White Pt. Location: 84 Patient Status: O Ordered Date: 02/08/2019 10:40:00 AM Completed Date: 02/08/2019 10:38 AM Requesting Provider: AHSAN BINGHAM Attending Provider: AHSAN BINGHAM Report Copy To: Signs & Symptoms: S82.001A Unsp fracture of right patella, init for clos fx I10 History: [place] Comments: , , , Ordering Provider - [...] Electronically signed by:Debra Del Cid. Transcribed by: [email or web address], User Resident: Electronically Signed by: DEBRA DEL CID @ 02/08/2019 11:16 AM Normal [facility] Comment on above: Order Comment: , Mabel ws (X-RAY, KNEE): Radiologic Protocol , Weight Bearing?: N , With or Without Brace/Cast/Collar: With , Views (X-RAY, KNEE): Radiologic Protocol , Weight Bearing?: N , With or Without Brace/Cast/Collar: With , , , Ordering Provider - AHSAN BINGHAM PA-C , KNEE RIGHT 1 OR 2 VWSon 090 KNEE RIGHT 1 OR 2 VWS [facility] Department of Radiology [address] [place] [phone] ======== Patient Name: MICHELLE BE : 1960 Sex: F Age: Race: White Pt. Location: Patient Status: Ordered Date: 12/07/2018 10:20:00 AM Completed Date: 12/07/2018 10:20 AM Requesting Provider: AHSAN BINGHAM Attending Provider: Report Copy To: Signs & Symptoms: S82.001A Unsp fracture of right patella, init for clos fx I10 History: [place] Comments: , , , Ordering Provider - [...] complications. Electronically signed by:Tomasz Stoll. Transcribed by: [email or web address], User Resident: Electronically Signed by: TOMASZ STOLL @ 12/07/2018 11:14 AM Normal [facility] Comment on above: Order Comment: , Vie ws (X-RAY, KNEE): Radiologic Protocol , Weight Bearing?: N , With or Without Brace/Cast/Collar: With , Views (X-RAY, KNEE): Radiologic Protocol , Weight Bearing?: N , With or Without Brace/Cast/Collar: With , , , Ordering Provider - AHSAN BINGHAM PA-C , KNEE RIGHT 1 OR 2 [facility] KNEE RIGHT 1 OR 2 [facility] Department of Radiology [address] [place] [phone] ======== Patient Name: MICHELLE BE : 1960 Sex: F Age: Race: White Pt. 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 Transcribed by: [email or web address], User Resident: Electronically Signed by: ANUP ELLISON @ 10/06/2018 02:48 PM Normal [facility] Comment on above: Order Comment: , Rossie ws (X-RAY, KNEE): Radiologic Protocol , Weight Bearing?: N , With or Without Brace/Cast/Collar: With , Views (X-RAY, KNEE): Radiologic Protocol , Weight Bearing?: N , With or Without Brace/Cast/Collar: With , , , Ordering Provider - AHSAN BINGHAM PA-C , KNEE RIGHT 1 OR 2 [facility] 08-05 KNEE RIGHT 1 OR 2 S [facility] Department of Radiology [address] [place] [address] ======== Patient Name: MICHELLE BE : 1960 Sex: F Age: Race: White Pt. Location: Patient Status: Ordered Date: 08/26/2018 2:30:00 PM Completed Date: 08/26/2018 02:54 PM Requesting Provider: AHSAN BINGHAM Attending Provider: Report Copy To: Signs & Symptoms: S82.001A Unsp fracture of right patella, init for clos fx I10 History: [place] Comments: , , , Ordering Provider - AHSAN BINGHAM PA-C , Exam: KNEE RIGHT 1 OR 2 [facility] ======== KNEE RIGHT 1 OR 2 [facility] 08/26/2018 2:54 PM EDT SIGNS AND SYMPTOMS: [...] effusion Electronically signed by:Anup Ellison. Transcribed by: [email or web address], User Resident: Electronically Signed by: ANUP ELLISON @ 08/26/2018 04:56 PM Normal [facility] Comment on above: Order Comment: , Vie ws (X-RAY, KNEE): Radiologic Protocol , Weight Bearing?: N , With or Without Brace/Cast/Collar: With , Views (X-RAY, KNEE): Radiologic Protocol , Weight Bearing?: N , With or Without Brace/Cast/Collar: With , , , Ordering Provider - AHSAN BINGHAM PA-C , KNEE RIGHT 1 OR 2 [facility] 07-06 KNEE RIGHT 1 OR 2 [facility] Department of Radiology [address] [place] [phone] ======== Patient Name: MICHELLE BE : [...] , Exam: KNEE RIGHT 1 OR 2 [facility] ======== KNEE RIGHT 1 OR 2 [facility] 07/29/2018 2:12 PM EDT SIGNS AND SYMPTOMS: [...] compartment Electronically signed by:Anup Ellison. Transcribed by: [email or web address], User Resident: Electronically Signed by: ANUP ELLISON @ 07/29/2018 03:41 PM Normal [facility] Comment on above: Order Comment: , Mabel ws (X-RAY, KNEE): Radiologic Protocol , Weight Bearing?: N , With or Without Brace/Cast/Collar: With , Views (X-RAY, KNEE): Radiologic Protocol , Weight Bearing?: N , With or Without Brace/Cast/Collar: With , , , Ordering Provider - AHSAN BINGHAM PA-C , KNEE RIGHT 3 [facility] 9 KNEE RIGHT 3 [facility] Department of Radiology [address] [place], [place] [phone] ======== Patient Name: MICHELLE BE : 1960 [...] knee Electronically signed by:Anup Ellison. Transcribed by: [email or web address], User Resident: Electronically Signed by: ANUP ELLISON @ 07/15/2018 03:31 PM Normal [facility] Comment on above: Order Comment: , Vie ws (X-RAY, KNEE): Radiologic Protocol , Weight Bearing?: N , With or Without Brace/Cast/Collar: With , Views (X-RAY, KNEE): Radiologic Protocol , Weight Bearing?: N , With or Without Brace/Cast/Collar: With , , , Ordering Provider - AHSAN BINGHAM PA-C , Operative Reporton 9 Operative Report MR#: [id number] [facility] Pt. Name: Michelle Be Room #: [...] P/Paolo Duarte MD Date Trans: 07/03/2018 04:28 A/terry [id number] [place] [facility] *ANAEROBIC CULTUREon 019 *ANAEROBIC CULTURE Clinical Report: (D) Specimen/Source: SWAB/RT KNEE Collected: 07/02/2018 13:53 Status: Final Last Updated: 07/07/2018 08:02 CULT RES (Final) No Anaerobes Isolated 5 Days Normal [facility] Comment on above: Performed By: #### 3 0312 #### [address] *WOUND CULTUREon 07-02-2018 *WOUND CULTURE Clinical Report: (D) Specimen/Source: WOUND/INTRAOP SPEC Collected: 07/02/2018 13:53 Status: Final Last Updated: 07/07/2018 10:13 (1) #1 RT KNEE GRAM (Final) Rare Polys No Bacteria Seen CULT RES (Final) No Growth Day 5 Normal [facility] Comment on above: Order Comment: #1 RT KNEE Performed By: #### 3 0343 #### [address] KNEE RIGHT 1 OR 2 VWSon 06-05 KNEE RIGHT 1 OR 2 S [facility] Department of Radiology [address] [place] [phone] ======== Patient Name: MICHELLE BE : [...] Electronically signed by:Debra Del Cid. Transcribed by: [email or web address], User Resident: Electronically Signed by: DEBRA DEL CID @ 07/02/2018 02:03 PM Normal [facility] Comment on above: Order Comment: ORIF VS PERCUTANEOUS FIXATION RIGHT PATELLA POC GLUCOSE LABon 07-02-2018 Glucose [Mass/Vol] 108 mg/dL High 70-100 [facility] Comment on above: Performed By: #### 8 5499 #### [facility] [address] [place] [address], [facility] APTTon 06-30-2018 aPTT Coag (Bld) [Time] 30.6 s Normal 25.0-35.0 [facility] Comment on above: Result Comment: ALL [...] THIS PURPOSE. Performed By: #### 5 6101, 93577 #### [facility] [address] [place] [address], [facility] BASIC METABOLIC PANELon 06-05 Calcium [Mass/Vol] 9.7 mg/dL Normal 8.6-10.3 [facility] Comment on above: Performed By: #### 0 0071 #### [facility] [address] [place] [address], [place] Chloride [Moles/Vol] 102 mmol/L Normal 98-107 [facility] Comment on above: Performed By: #### 0 0071 #### [facility] [address] [place] [address], [place] CO2 [Moles/Vol] 28 mmol/L Normal 21-31 [facility] Comment on above: Performed By: #### 0 0071 #### [facility] [address] [place] [address], [place] Creatinine [Mass/Vol] 1.20 mg/dL Normal 0.60-1.20 [facility] Comment on above: Performed By: #### 0 0071 #### [facility] [address] [place] [address], [place] GFR/1.73 sq M predicted among blacks MDRD (S/P/Bld) [Vol rate/Area] 56 ml/min/1.73sq m Abnormal >60 [facility] Comment on above: Performed By: #### 0 0071 #### [facility] [address] [place] [address], [place] GFR/1.73 sq M predicted among non-blacks MDRD (S/P/Bld) [Vol rate/Area] 47 ml/min/1.73sq m Abnormal >60 [facility] Comment on above: Performed By: #### 0 0071 #### [facility] [address] [place] [address], [place] Glucose [Mass/Vol] 97 mg/dL Normal 70-100 [facility] Comment on above: Performed By: #### 0 0071 #### [facility] [address] [place] [address], [place] Potassium [Moles/Vol] 4.1 mmol/L Normal 3.5-5.1 [facility] Comment on above: Performed By: #### 0 0071 #### [facility] [address] Sodium [Moles/Vol] 137 mmol/L Normal 136-145 [facility] Comment on above: Performed By: #### 0 1 #### [facility] [address] Urea nitrogen [Mass/Vol] 19 mg/dL Normal 7-25 [facility] Comment on above: Performed By: #### 0 1 #### [facility] [address] CBC W/DIFFon 06-30-2018 ABS BASOPHILS 0.1 10*3/uL Normal 0.0-0.2 [facility] Comment on above: Performed By: #### 5 0103 #### [facility] [address] ABS IMM GRANS 0.0 10*3/uL Normal 0.0-0.2 [facility] Comment on above: Performed By: #### 5 3 #### [facility] [address] ABS NEUTROPHILS 6.4 10*3/uL Normal 1.6-7.6 [facility] Comment on above: Performed By: #### 5 3 #### [facility] [address] Basophils/100 WBC (Bld) 0.7 % Normal 0.0-1.0 [facility] Comment on above: Performed By: #### 5 102 #### [facility] [address] Eosinophils (Bld) [#/Vol] 0.2 10*3/uL Normal 0.0-0.5 [facility] Comment on above: Performed By: #### 5 0103 #### [facility] [address] [place] [address], [facility] Eosinophils/100 WBC (Bld) 1.5 % Normal 0.0-6.0 [facility] Comment on above: Performed By: #### 5 3 #### [facility] [address] [place] [address], [facility] Erythrocyte distribution width (RBC) [Ratio] 14.4 % Normal 11.5-15.0 [facility] Comment on above: Performed By: #### 3 #### [facility] [address] [facility] [place] [address], [facility] Hematocrit (Bld) [Volume fraction] 40.6 % Normal 36.0-45.0 [facility] Comment on above: Performed By: #### 5 3 #### [facility] [address] [facility]. [address] Hemoglobin (Bld) [Mass/Vol] 13.3 g/dL Normal 12.0-15.0 [facility] Comment on above: Performed By: #### 5 3 #### [facility] [address] [place] [address], [facility] IMMATURE GRANS 0.4 % Normal 0.0-1.0 [facility] Comment on above: Performed By: #### 5 3 #### [facility] [address] [facility] [place] [address], [facility] Lymphocytes (Bld) [#/Vol] 2.6 10*3/uL Normal 1.2-4.0 [facility] Comment on above: Performed By: #### 5 3 #### [facility] [address] [place] [address], [facility] Lymphocytes/100 WBC (Bld) 26.5 % Normal 20.0-45.0 [facility] Comment on above: Performed By: #### 3 #### [facility] [address] MCH (RBC) [Entitic mass] 27.4 pg Normal 27.0-33.0 [facility] Comment on above: Performed By: #### 102 #### [facility] [address] [facility]. [address] MCHC (RBC) [Mass/Vol] 32.8 g/dL Normal 32.0-35.0 [facility] Comment on above: Performed By: #### 102 #### [facility] [address] MCV (RBC) [Entitic vol] 83.5 fL Normal 82.0-98.0 [facility] Comment on above: Performed By: #### 102 #### [facility] [address] Monocytes (Bld) [#/Vol] 0.5 10*3/uL Normal 0.1-1.0 [facility] Comment on above: Performed By: #### 5 102 #### [facility] [address] MONOS 5.0 % Normal 5.0-12.0 [facility] Comment on above: Performed By: #### 5 3 #### [facility] [address] Neutrophils/100 WBC (Bld) 65.9 % Normal 40.0-72.0 [facility] Comment on above: Performed By: #### 5 102 #### [facility] [address] Nucleated RBC/100 WBC (Bld) [Ratio] 0 % Normal 0-0 [facility] Comment on above: Performed By: #### 5 102 #### [place] [address], [facility] PLAT CNT 290 10*3/uL Normal 150-400 [facility] Comment on above: Performed By: #### 5 0103 #### [address] [address], [facility] RBC (Bld) [#/Vol] 4.86 10*6/uL Normal 3.80-5.00 [facility] Comment on above: Performed By: #### 5 0103 #### [facility] [address] [place] [address], [facility] WBC (Bld) [#/Vol] 9.68 10*3/uL Normal 4.00-10.60 [facility] Comment on above: Performed By: #### 5 0103 #### [place] [address], [facility] KNEE RIGHT 1 OR 2 VWSon 06-05 KNEE RIGHT 1 OR 2 VWS [facility] Department of Radiology [address] [place] [phone] ======== Patient Name: MICHELLE BE : 1960 Sex: F Age: Race: White Pt. 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, 7thD I10 History: [place] Comments: , Views (X-RAY, KNEE): Radiologic Protocol [...] Electronically signed by:Debra Del Cid. Transcribed by: [email or web address], User Resident: Electronically Signed by: DEBRA DEL CID @ 06/30/2018 11:52 AM Normal [facility] Comment on above: Order Comment: , Mabel ws (X-RAY, KNEE): Radiologic Protocol , Weight Bearing?: N , With or Without Brace/Cast/Collar: With , Views (X-RAY, KNEE): Radiologic Protocol , Weight Bearing?: N , With or Without Brace/Cast/Collar: With , , , Ordering Provider - AHSAN BINGHAM PA-C , PROTHROMBIN TIMEon 9 INR Coag (PPP) [Relative time] 0.98 {INR} Normal 0.91-1.16 [facility] Comment on above: Result Comment: [facility] P RECOMMENDED INR FOR WARFARIN THERAPY --------- [...] CHEST 1995;108:231S-246S. Performed By: #### 5 6101, [address] #### [address] PT Coag (PPP) [Time] 13.0 s Normal 12.3-14.8 [facility] Comment on above: Result Comment: ALL RESULTS MUST BE INTERPRETED WITH RESPECT TO BLOOD DRAWING ARTIFACT OR DILUTION ERROR OF ANTICOAGULANT AT THE TIME OF SAMPLING. Performed By: #### 5 6101, [address] #### [address] KNEE RIGHT 3 VWSon 9 KNEE RIGHT 3 VWS [facility] Department of Radiology [address] [place] [phone] ======== Patient Name: MICHELLE BE : 1960 Sex: F Age: Race: White Pt. Location: 84 Patient Status: O Ordered Date: 06/15/2018 1:35:00 PM Completed Date: 06/15/2018 01:34 PM Requesting Provider: AMPARO ZHANG Attending Provider: AMPARO ZHANG Report Copy To: ADELAIDA CARRION Signs & Symptoms: M17.11 Unilateral primary osteoarthritis, right knee I10 History: [place] Comments: , Weight Bearing?: Y , Weight Bearing?: Y , , , Ordering Provider - AMPARO ZHANG PA-C , Exam: KNEE RIGHT 3 [facility] ======== KNEE RIGHT 3 S 06/15/2018 1:34 [...] effusion Electronically signed by:Anup Ellison. Transcribed by: [email or web address], User Resident: Electronically Signed by: ANUP ELLISON @ 06/15/2018 03:50 PM Normal [facility] Comment on above: Order Comment: , Isaiah ght Bearing?: Y , Weight Bearing?: Y , , , Ordering Provider - AMPARO ZHANG PA-C , Vital Signs Date Time Vital Sign Value Performing Clinician Facility 05-18-2023 16:30-0500 Body height 162.6 cm Adelaida Sheyla [employer] Work Phone: [facility] 05-18-2023 16:30-0500 Body mass index (BMI) [Ratio] 47.89 kg/m2 Adelaida Kelsiez [employer] Work Phone: [facility] 05-18-2023 16:30-0500 Body temperature 97.3 [degF] Adelaida Yinghholz [employer] Work Phone: [facility] 05-18-2023 16:30-0500 Body weight 126.55 kg Adelaida Aichholz [employer] Work Phone: [facility] 05-18-2023 16:30-0500 Diastolic blood pressure 80 mm[Hg] Adelaida Yinghholz [employer] Work Phone: [facility] 05-18-2023 16:30-0500 Heart rate 76 /min Adelaida Aichholz [employer] Work Phone: [facility] 05-18-2023 16:30-0500 Respiratory rate 19 /min Adelaida Aichholz [employer] Work Phone: [facility] 05-18-2023 16:30-0500 SaO2% (BldA) [Mass fraction] 97 % Adelaida Yinghholz [employer] Work Phone: [facility] 05-18-2023 16:30-0500 Systolic blood pressure 134 mm[Hg] Adelaida Aichholz [employer] Work Phone: [facility] 03-23-2023 12:10-0500 Diastolic blood pressure 98 mm[Hg] Adelaida Aichholz Work Phone: [facility] 03-23-2023 12:10-0500 Heart rate 76 /min Adelaida Aichholz Work Phone: [facility] 03-23-2023 12:10-0500 Respiratory rate 18 /min Adelaida Aichholz Work Phone: [facility] 03-23-2023 12:10-0500 SaO2% (BldA) [Mass fraction] 99 % Adelaida Aichholz Work Phone: [facility] 03-23-2023 12:10-0500 Systolic blood pressure 162 mm[Hg] Adelaida Aichholz Work Phone: [facility] 03-23-2023 10:53-0500 Body height 162.56 cm Adelaida Aichholz Work Phone: [facility] 03-23-2023 10:53-0500 Body weight 125.64 kg Adelaida Aichholz Work Phone: [facility] 12-19-2022 14:55-0400 Body height 162.56 cm Rosemary Kirkland Other [employer] Other 12-19-2022 14:55-0400 Body mass index (BMI) [Ratio] 47.85 kg/m2 Rosemary Kirkland Other [facility] Other 12-19-2022 14:55-0400 Body temperature 97.8 [degF] Rosemary Kirkland Other [facility] Other 12-19-2022 14:55-0400 Body weight 126.46 kg Rosemary Kirkland Other [facility] Other 12-19-2022 14:55-0400 Respiratory rate 20 /min Rosemary Kirkland Other [facility] Other 12-19-2022 14:55-0400 SaO2% (BldA) [Mass fraction] 95 % Rosemary Kirkland Other [facility] Other 11-20-2022 13:12-0400 Body temperature 97.7 [degF] Adelaida Aichholz Work Phone: [facility] 11-20-2022 13:12-0400 SaO2% (BldA) [Mass fraction] 96 % Adelaida Aichholz Work Phone: [facility] 11-20-2022 07:44-0400 Diastolic blood pressure 90 mm[Hg] Adelaida Aichholz Work Phone: [facility] 11-20-2022 07:44-0400 Heart rate 103 /min Adelaida Aichholz Work Phone: [facility] 11-20-2022 07:44-0400 Systolic blood pressure 152 mm[Hg] Adelaida Aichholz Work Phone: [facility] 11-19-2022 20:00-0400 Respiratory rate 18 /min Adelaida Aichholz Work Phone: [facility] 11-18-2022 15:18-0400 Body height 162.56 cm Adelaida Aichholz Work Phone: [facility] 11-17-2022 09:00-0400 Body weight 122.92 kg Adelaida Aichholz Work Phone: [facility] Encounters Encounter Date Encounter Type Care Provider Facility Start: 05-22-2023 End: 05-22-2023 ambulatory ASHLEIGH HINES Not Available Start: 05-21-2023 Refill Adelaida Carrion PLOW SHAKER Work Phone: [facility] Comment on above: Acute cystitis with hematuria (Primary Dx) Start: 05-18-2023 End: 05-18-2023 ambulatory ADELAIDA CARRION Not Available Start: 05-18-2023 End: 05-18-2023 Office outpatient visit 25 minutes Adelaida Carrion PLOW SHAKER Work Phone: [facility] Comment on above: Encounter for annual wellness visit (AWV) in Medicare patient (Primary Dx); OSMANY (obstructive sleep apnea); Chronic pain disorder; Gastroesophageal reflux disease, unspecified whether esophagitis present; Overactive bladder; Lower extremity edema; Pre-diabetes; Morbid obesity ([facility]); Yeast infection of the skin; Tobacco dependence; Mood disorder ([facility]); Primary hypertension ([facility]); Left hip pain; Open wound of anterior abdominal wall, initial encounter Start: 05-18-2023 Bamboo flowsheet Adelaida Carrion PLOW SHAKER Work Phone: [facility] Start: 05-18-2023 Bamboo flowsheet Adelaida Carrion PLOW SHAKER Work Phone: [facility] Start: 05-18-2023 End: 05-18-2023 Patient encounter procedure Adelaida Carrion PLOW SHAKER Work Phone: [facility] Start: 04-30-2023 ambulatory Eduardo Acevedo acility:[facility] Start: 03-25-2023 End: 03-25-2023 ambulatory ADELAIDA CARRION Not Available Start: 03-23-2023 End: 03-23-2023 ambulatory Jace Graham Facility:[facility] Start: 03-23-2023 End: 03-23-2023 Admission to same day surgery center Adelaida Carrion Work Phone: [facility] Work Phone: Start: 03-23-2023 End: 03-23-2023 ambulatory Adelaida Carrion Work Phone: [facility] Work Phone: Start: 03-11-2023 End: 03-11-2023 ambulatory KALLI INTERIANO Not Available Start: 02-20-2023 End: 02-20-2023 ambulatory ASHLEIGH HNIES Not Available Start: 02-12-2023 End: 02-12-2023 ambulatory Jace Graham Other [facility] Other Start: 02-12-2023 Telephone encounter Jace Graham FP [employer] Start: 12-19-2022 End: 12-19-2022 ambulatory Rosemary Kirkland Other [employer] Other Start: 12-19-2022 Office outpatient ne w 10 minutes Rosemary Kirkland [facility] [address] [place] Start: 11-17-2022 End: 11-20-2022 Evaluation and management of inpatient Eduardo Aleshia Facility:[facility] Start: 11-17-2022 End: 11-20-2022 Evaluation and management of inpatient Adelaida Aicsherineholz Work Phone: [facility] Work Phone: Start: 09-04-2022 ambulatory ARIAN JOHNSON . Facili ty:H1 Start: 08-26-2022 ambulatory NARENDRANATH LAKSHMIPATHY . Facility:H1 Start: 08-08-2022 End: 08-09-2022 ambulatory LAST CHALKER ADELAIDA AICHHOLZ Facility:H1 Start: 07-25-2022 End: 07-26-2022 ambulatory LAST CHALKER ADELAIDA AICHHOLZ Facility:H1 Start: 07-15-2022 End: 07-15-2022 ambulatory NARENDRANATH LAKSHMIPATHY . Facility:H1 Start: 07-11-2022 ambulatory NARENDRANATH LAKSHMIPATHY . Facility:H1 Start: 06-26-2022 End: 06-27-[address] FINA ZIMMER . Facility:H1 Start: 06-11-2022 ambulatory LAST CHALKER ADELAIDA AICHHOLZ Facil ity:H1 Start: 05-21-2022 End: 06-11-2022 ambulatory LIVIER CARRION Facility:H1 Start: 05-08-2022 End: 05-09-2022 ambulatory LIVIER CARRION Facility:H1 Start: 04-28-2022 End: 04-28-2022 ambulatory LIVIER CARRION Facility:H1 Start: 04-03-2022 End: 04-04-[address] FINA ZIMMER . Facility:H1 Start: 03-19-2022 End: 03-20-2022 ambulatory LIVIER SOUSAGERONIMONean Facility:H1 Start: 02-20-2022 End: 02-20-2022 ambulatory GILMER NEVES Facility:H1 Start: 01-10-2022 End: 02-12-2022 ambulatory BRIDGETTE Ca [facility] Facility:H1 Start: 01-02-2022 End: 01-03-[address] FINA ZIMMER . Facility:H1 Start: 01-01-2022 End: 01-02-2022 ambulatory BRIDGETTE Ca [facility] Facility:H1 Start: 12-16-2021 End: 12-16-2021 ambulatory LIVIER CARRION Facility:H1 Start: 11-21-2021 End: 11-22-[address] DOCTOR BERGERON Facility:H1 Start: 10-03-2021 End: 10-04-[address] FINA ZIMMER . Facility:H1 Start: 09-19-[address] FINA ZIMMER . Faci lity:H1 Start: 09-12-2021 End: 09-12-2021 ambulatory LIVIER SOUSAGERONIMONena Facility:H1 Start: 08-20-2021 End: 08-20-[address] FINA ZIMMER . Facility:H1 Start: 07-02-2018 End: 07-03-2018 Patient encounter procedure SUKI ESCALANTE Facility:[facility] Procedures Date Procedure Procedure Detail Performing Clinician Start: 03-23-2023 Screening colonoscopy L onealmyrna Sousabob Work Phone: Start: 03-23-2023 Colonoscopy Adelaida Yingshira ramos PLOW SHAKER Work Phone: Start: 09-15-2022 Mammography Adelaida Jayden ramos PLOW SHAKER Work Phone: Start: 08-28-2022 Microscopic observat ion [Identifier] in Cervix by Cyto stain Adelaida Carrion NP Work Phone: Start: 07-02-2018 ANESTH KNEE AREA SURGERY CHAPARRITA HENDRICKS Start: 07-02-2018 REMOVAL OF SUPPORT IMPLANT SUKI CHRISTIAN Start: 07-02-2018 TREAT KNEECAP FRACTURE SUKI EBRAHEIM Plan of Treatment Date Care Activity Detail Author Start: 03-23-2033 Screening for malignant neoplasm of colon [facility] Start: 08-28-2025 Screening for malignant neoplasm of cervix [facility] Start: 05-18-2024 Medicare Annual Wellness (AWV) Medicare Annual Wellness (AWV) [facility] Start: 09-16-2023 Screening for malignant neoplasm of breast Mammogram [facility] Start: 08-17-2023 End: 08-17-2023 Patient encounter procedure 08/17/2023 9:20 AM EDT Office Visit [facility] [address] [place] [id number] Adelaida Carrion, BRIANA [address] [place] [phone] [facility] Start: 05-22-2023 End: 05-22-2023 Patient encounter procedure 05/22/2023 8:45 AM EST Office Visit [facility] [address] [facility] [address] [place] [address] Ashleigh Hines PA [address] [facility] [address] [place] [address] [facility] Start: 05-18-2023 End: 05-18-2023 Patient encounter procedure 05/18/2023 4:30 PM EST Office Visit [facility] [address] [place] [phone] Adelaida Carrion NP [address] [place] [phone] Arrived [facility] Comment on above: Arrived Start: 05-18-2023 End: 05-18-2024 XR Hip - left 3 Views XR hip left 2 or 3 views Imaging Routine Left hip pain Expected: 05/18/2023 (Approximate), Expires: 05/18/2024 [facility] Work Phone: Comment on above: Expected: 05/18/2023 (Approximate), Expires: 05/18/2024 Start: 03-23-2023 [facility] Start: 11-20-2022 [facility] Start: 11-18-2022 Referral to clinical vice president for instruction [facility] Start: 11-17-2022 Hospital admission [facility] Start: 11-17-2022 [facility] Start: 12-06-1991 Screening for malignant neoplasm of cervix HPV/Cotest [facility] Start: 1960 Medicare Annual Wellness (AWV) Medicare Annual Wellness (AWV) [facility] Start: 1960 Screening for malignant neoplasm of colon [facility] Patient Education [facility] Work Phone: Patient referral [facility] Work Phone: [facility] Immunizations Immunization Date Immunization Notes Care Provider [facility] 02-13-2023 influenza, injectabl e, quadrivalent, preservative free Adelaidamyrna Carrion PLOW SHAKER Work Phone: [facility] 02-13-2023 SARS-COV-2 (COVID-19 ) vaccine, mRNA, spike protein, LNP, PF, 50 mcg/0.5 mL Adelaida Sheyla PLOW SHAKER Work Phone: [facility] 02-19-2022 diphtheria, tetanus toxoids and pertussis vaccine Adelaida Sheyla PLOW SHAKER Work Phone: [facility] 03-02-2021 Moderna SARS-CoV-2 Vaccination Adelaida Sheyla PLOW SHAKER Work Phone: [facility] 08-24-2020 Moderna SARS-CoV-2 Vaccination Adelaida Sheyla PLOW SHAKER Work Phone: [facility] 07-27-2020 Moderna SARS-CoV-2 Vaccination Adelaida Sheyla PLOW SHAKER Work Phone: [facility] 05-28-2018 influenza, injectabl e, quadrivalent, preservative free Adelaida Sheyla Work Phone: [facility] Payers Date Payer Category Payer Medicare [id number] 2022 Private Health Insurance [id number] 2022 Self-pay [id number] 2022 Medicare [employer] MEDICARE REPLACEMENT [id number] 2022-Present [address] [address] [place] [address] [id number] 2008 Unknown [id number] 1961 Unknown [id number] 2.16.840.1.842002.3.579.2 .647 1961 Unknown [id number] 2.16.840.1.949541.3.579.2 .593 1961 Unknown [id number] 2.16.840.1.337637.3.579.2 .593 1961 Unknown [id number] 2.16.840.1.593838.3.579.2 .593 1961 Unknown [id number] 2.16.840.1.573611.3.579.2 .593 1961 Unknown [id number] 2.16.840.1.092797.3.579.2 .593 1961 Unknown [id number] 2.16.840.1.360249.3.579.2 .593 1961 Unknown [id number] 2.16.840.1.594193.3.579.2 .593 1961 Unknown [id number] 2.16.840.1.548798.3.579.2 .593 1961 Unknown [id number] 2.16.840.1.520569.3.579.2 .593 1961 Unknown [id number] 2.16.840.1.571202.3.579.2 .593 1961 Unknown [id number] 2.16.840.1.844884.3.579.2 .593 1961 Unknown [id number] 2.16.840.1.859383.3.579.2 .593 1961 Unknown [id number] 2.16.840.1.089029.3.579.2 .593 1961 Unknown [id number] 2.16.840.1.171936.3.579.2 .593 1961 Unknown [id number] 2.16.840.1.537151.3.579.2 .593 1961 Unknown [id number] 2.16.840.1.582410.3.579.2 .593 1961 Unknown [id number] 2.16.840.1.974629.3.579.2 .593 1961 Unknown [id number] 2.16.840.1.870967.3.579.2 .593 1961 Unknown [id number] 2.16.840.1.895070.3.579.2 .593 1961 Unknown [id number] 2.16.840.1.762638.3.579.2 .593 1961 Unknown [id number] 2.16.840.1.378747.3.579.2 .593 1961 Unknown [id number] 2.16.840.1.198541.3.579.2 .593 1961 Unknown [id number] 2.16.840.1.816614.3.579.2 .593 1961 Unknown [id number] 2.16.840.1.925692.3.579.2 .593 1961 Unknown [id number] 2.16.840.1.818667.3.579.2 .1259 1961 Unknown [id number] 2.16.840.1.759050.3.579.2 .1259 1961 Unknown [id number] 2.16.840.1.531872.3.579.2 .1259 1961 Unknown [id number] 2.16.840.1.593148.3.579.2 .1259 1961 Unknown [id number] 2.16.840.1.472530.3.579.2 .1259 1959 Medicare [id number] 1959 Unknown [id number] Unknown [id number] 2.16.840.1.406908.3.579.2 .531 Unknown [id number] 2.16.840.1.548338.3.579.2 .531 Unknown [id number] 2.16.840.1.695313.3.579.2 .531 Social History Date Type Detail Facility Start: 11-18-2022 End: 02-09-2023 Tobacco smoking status NJIS Ex-smoker (finding) [facility] Start: 1960 Sex Assigned At Female [facility] Start: 03-25-2023 End: 05-18-2023 Sex Assigned At [facility] End: 04-06-2016 History of tobacco use Current smoker [facility] End: 04-06-2016 History of tobacco use Cigarette Smoker [facility] Start: 02-09-2023 End: 05-18-2023 Cigarettes smoked current (pack per day) - Reported 1 [facility] Start: 02-09-2023 Tobacco use and exposure [...] Facility 11-20-2022 Functional status Patient at Baseline [facility] Work Phone: Mental Status Date Assessment Result Facility 11-20-2022 Cognitive function Cognitive Sta tus Patient is Progressing Toward Baseline [facility] Work Phone: Clinical Notes 10-03-2021 to 05-18-2023 [...] (BARIATRIC MULTIVITAMINS/IRON PO) Bariatric Multivitamins/Iron nystatin (Mycostatin) 109955 UNIT/GM powder 1 application , Topical, 2 [...] murmur Hematoma of right breast Hemiparesis, right (CMS/HCC) Hemorrhoid int/external hemorrhoids Hiatal hernia Iron deficiency Left foot pain 03/25/2023 Lower extremity edema Mood disorder ([facility]/HCC) mixed mood disorder OSMANY (obstructive sleep apnea) Osteoporosis ([facility]/HCC) Overactive bladder Pre-diabetes Primary hypertension ([facility]/HCC) 03/25/2023 PTSD (post-traumatic stress disorder) ([facility]) Restless leg Right knee pain Right sided weakness S/P bariatric surgery Shingles Slurred speech Stroke ([facility]) 2017 Tenosynovitis, de Quervain Thoracic back pain, unspecified [...] yearly and prn documented in this encounter [facility] 03-23-[address] [facility] 12-19-2022 Evaluation note Encounter Date Diagnosis Assessment Notes Dec, Skin candidiasis (ICD-10 - B37.2) Drink plenty fluids, get plenty of rest. Continue home medications as prescribed. Take the Diflucan as prescribed until gone. Follow-up with your family physician if no improvement in 2 to 3 days [facility] Other 08-17-2023 Discharge summary Author Eduardo bautista [facility] November 20, 2022 6:38am Note Date/Time November 20, 2022 6: 38am [facility] [address] [place] [address] Discharge Summary Signed Patient: Michelle Be MR#: [id number] : 1960 Acct:[id number] Age/Sex: 61 / F Adm Date: 3 Loc: 1S Room: 2I1085-[address]: Gaudencio Monk MD Copies to: MD Adelaida Álvarez, PLOW SHAKER-C~ Providers Date of Discharge: 11/20/22 Discharging Provider: [...] at that time.? She reports moving to [place] from [place] in 2011 and was then diagnosed with bipolar disorder at [facility] in [place], where she still follows with a therapist.? Shereports that she has been with 7 therapists in the last 9 years and is currentlycompleting EMDR with her current therapist. Past hospitalizations: Her most recent hospitalization was 5 years ago [facility] in [place] for the same feeling she is experiencing [...] worked since 2010 due to her fibromyalgia.? [facility]. Relationships: Reports [...] self or stop treatment, but to call [facility], [facility] or come to the nearest emergency room. [...] 4 mg tablet 2 mg PO 09,1400 Patient Comments: TAKE 1/2 (ONE-HALF) OF A [...] Tablet 1 tab PO QID Follow Up: [facility] [Outside] [facility] [Outside] ( manager concrete: (Insert date/time here) Therapy:? (insert date/time here) [...] signed by Eduardo Monk MD> 11/20/22 0638 [facility] Work Phone: 1(322) 114-143108-16-2023 Progress note Author Eduardo bautista [facility] November 19, 2022 6:25am Note Date/Time November 19, 2022 6: 25am [facility] [address] [place] [address] Psychiatry Progress Note Signed Patient: Michelle Be MR#: [id number] : 1960 Acct:[id number] Age/Sex: 61 / F Adm Date: 3 Loc: Room: [address] [place] [address] Type : ADM IN Attending Dr: Gaudencio [...] signed by Eduardo Monk MD> 11/19/22 0625 [facility] Work Phone: 1(839) 524-428708-15-2023 Progress note Author Eduardo bautista [facility] November 18, 2022 11:01am Note Date/Time November 18, 2022 10 :11am [facility] [address] [place] [address] Psychiatry Progress Note Signed Patient: Michelle Be MR#: [id number] : 1960 Acct:[id number] Age/Sex: 61 / F Adm Date: 3 Loc: Room: [address] [place] [address] Type : ADM IN Attending Dr: Gaudencio [...] by requesting a schedule 2 referring to [place] for pain management specifically every 4-6 hours [...] time Documented By: Eduardo Monk MD 3 0927 Signed By: <Electronically signed by Eduardo Monk MD> 11/18/22 1101 <Electronically signed by MD DA Rangel> 11/18/22 1011 [facility] Work Phone: 1(645) 354-425508-14-2023 History and physical note Author Eduardo bautista [facility] November 17, 2022 12:48pm Note Date/Time November 17, 2022 12 :48pm [facility] [address] [place] [address] Psychiatry H&P Signed Patient: Michelle Be MR#: [id number] : 1960 Acct:[id number] Age/Sex: 61 / F Adm Date: 3 Loc: Room: [address] [place] [address] Type: ADM IN Attending Dr: Gaudencio Monk MD Copies to: MD Adelaida Álvarez, PLOW SHAKER-C~ Date of Service: 11/17/2022 HPI History of [...] at that time. She reports moving to [place] from [place] in 2011 and was then diagnosed with bipolar disorder at [facility] in [place], where she still follows with a therapist. [...] equal bilaterally. CN XII: Tongue protrusion midline [facility] Medical History (Updated 11/17/22 @ 10:42 by [...] signed by Eduardo Monk MD> 11/17/22 1243 [facility] Work Phone: 1(750) 508-399803-23-2023 NoteCONSULTATION CONSULTATION DATE: 06/26/2022 To: Nurse Sheyla [...] L5-S1 facet joint injection under fluoroscopic guidance.[facility] [id number] NotePROCEDURE: XR SHOULDER RT 2V or > [...] Electronically authenticated by: KINGSLEY CLEMENTS Date: 2022-05-09 09:21[facility]01-23-2023 NotePROCEDURE: XR WRIST LT MIN 3 [...] Electronically authenticated by: KINGSLEY CLEMENTS Date: 2022-04-28 13:31[facility]12-29-2022 NoteCONSULTATION CONSULTATION DATE: 04/03/2022 HISTORY OF [...] her in three months, unless otherwise indicated.[facility] [id number] NoteCONSULTATION CONSULTATION DATE: 01/02/2022 This is a [...] prescription was sent by Dr. Macedo to [facility] in [place] for the compounded cream. She needs a [...] in three months' time unless otherwise indicated.[facility] [id number] NotePROCEDURE: XR ANKLE RT MIN 3 VIEWS, [...] patient agrees with the plan of care. [facility] Signed and Approved by: ZELDA MCDANIEL . 10/10/2021 10:22:00[facility] Diagnosis Onset Date Resolution Status Allergies acute Bipolar 2 disorder acute Hypertension acute Morbid obesity with BMI of 45.0-49.9, adult acute OSMANY (obstructive sleep apnea) acute Restless legs syndrome acute [facility] Work Phone: Evaluation noteNo InformationNort Your Policy Manager Other Evaluation noteNo assessment information available [facility] Work Phone: Evaluation note* Diagnosis Encounter for [...] wall, initial encounter documented in this encounter [facility] HealthcareEvaluation note* Diagnosis Acute cystitis with hematuria- Primary documented in this encounter [facility] and physical note Author Jace Graham [facility] March 23, 2023 11:21am Note Date/Time March 23, 2023 11:21am [facility] [address] [place] [address] Gastroenterology H&P Signed Patient: Michelle Be MR#: [id number] : 1960 Acct:[id number] Age/Sex: 62 / F Adm Date: 3 Loc: Room: Type: [facility] Attending Dr: Jace Graham MD [...] signed by Jace Graham MD> 03/23/23 1121 [facility] Work Phone: History general Narrative - [...] see above surg Hospitalization History stroke 2018 [facility] Other Hospital Discharge instructions Additional Instructions Regular Diet No Activity [facility] Work Phone: Hospital Discharge instructions Additional [...] years. -Follow up with PCP. -Office number [phone].[facility] Work Phone: Summary Purpose Family History [...] section and content) DATE CREATED AUTHOR 02/18/2019 [facility] DATE CREATED AUTHOR AUTHOR'S ORGANIZ ATION 11/15/2021 [facility] DATE CREATED AUTHOR AUTHOR'S ORGANIZ ATION 08/16/2022 [facility] DATE CREATED AUTHOR AUTHOR'S ORGANIZ ATION 05/24/2023 [facility] DATE CREATED AUTHOR AUTHOR'S ORGANIZ ATION 06/28/2023 [facility] Care Teams (unrecognized sec tion and content) Team Status: Active Member Role Status Dates Adelaida Carrion Primary Care Provider Active Team Status: Inactive Member Role Status Dates Adelaida Carrion Primary Care Provider Active Gaudencio Monk MD Admit Provider, Attending Pr ovider Active Andreina Vieira RN Other Provider Active Camilla Pina , JOHANN Other Provider Active Ruchi Hurtado , JOHANN Other Provider Active Lisa Crooks , JOHANN Other Provider Active Tash Mejias RN Other Provider Active Elzbieta Kim , JOHANN Other Provider Active Walker Pringle MD Other Provider Active Adelaida M Dials , ROUNDING MACHINE TENDER Other Provider Active Ronobir Lidia , DO Other Provider Active Obdulio Bragg MD Other Provider Active Joon Cristina , DO Other Provider Active Torin Robert MD Other Provider Active Dawn Barrera MD Other Provider Active Mari Soler , ANP-BC Other Provider Active Sofi Almanzar MD Other Provider Active Sharad Gallegos MD Other Provider Active bAy Cain MD Other Provider Active Hillary Carrera MD Other Provider Active Julio César Mckeon , DO Other Provider Active Valentine Mak MD Other Provider Active Raymond Strong MD Other Provider Active Joellen Le , PLOW SHAKER-C Other Provider Active Severo Yancey MD Other Provider Active Rao Webber MD Other Provider Active Yuan Shi MD Other Provider Active Delroy Ramirez MD Other Provider Active Berta Comer , DO Other Provider Active Negrito Ruiz , DO Other Provider Active Lacho Singh , DO Other Provider Active Rachana Hobson , ROUNDING MACHINE TENDER Other Provider Active Rob Lake , DO Other Provider Active Jeff Alvarez MD Other Provider Active Urmila Rinaldi , ROUNDING MACHINE TENDER Other Provider Active Bina Mayberry , ROUNDING MACHINE TENDER Other Provider Active Mir Bradford MD Other Provider Active Te Da Silva MD Other Provider Active Debra Landaverde RN Other Provider Active Team Status: Inactive Member Role Status Dates Adelaida Carrion Primary Care Provider Active Jace Graham MD Attending Provider Active Molding Utility Worker Relationship Specialty Start Date End Date José Luis Roberts MD [address] [place] [address] PCP - General Family Medicine 05/18/23 Adelaida Carrion NP [address] [place] [address] Referring Physician Nurse Practitioner 10/14/22 Molding Utility Worker Relationship Specialty Start Date End Date José Luis Roberts MD [address] [place] [id number] PCP - General Family Medicine 05/18/23 Adelaida Carrion NP [address] [place] [address] Referring Physician Nurse Practitioner 10/14/22 Molding Utility Worker Relationship Specialty Start Date End Date José Luis Roberts MD [address] [place] [address] PCP - General Family Medicine 05/18/23 Adelaida Carrion NP [address] [place] [address] Referring Physician Nurse Practitioner 10/14/22 [...] BE BASED ON THE PRIMARY CLINICAL RECORDS. [facility] [employer] [facility] provides no warranty or guarantee of the accuracy or completeness of information in this document.
[2023-06-29 11:21] VITALS: BP 171/105; PULSE 103; RESP 16; TEMP 36.2; O2SAT 95
[2023-06-29 11:58] VITALS: BP 145/82; BP 158/83; PULSE 73; PULSE 84; RESP 18; O2SAT 95; O2SAT 96
[2023-06-29] MEDS: BUPIVACAINE HCL 0.25% PF 25 MG/10 ML VIAL 4 ML INJ (11:59)
[2023-06-29] MEDS: TRIAMCINOLONE ACETONIDE 40 MG/ML VIAL 80 MG INJ (11:59)
[2023-06-29] MEDS: IOHEXOL 240 MG/ML - 10 ML VIAL 24 MG INJ (11:59)
[2023-06-29] MEDS: LIDOCAINE HCL 2% PF 100 MG/5 ML VIAL 1 ML INJ (11:59)
--- NOTE | 2023-06-29 11:59 | W.PM.PROCNOT ---
Date of procedure: 06/29/23 Pre-op diagnosis: Sacroiliitis, bilateral Post-op diagnosis: same as pre-op Procedure: Procedure: Bilateral sacroiliac joint injection Medications: Bupivacaine 0.25% 3cc, kenalog 40mg x2 After informed consent was obtained, the patient was brought to the medical procedure unit and placed in the prone position, when a timeout was completed verifying correct patient, procedure, site, positioning, implant, and/or special equipment.? The skin overlying the area was prepped and draped in standard sterile fashion using alcohol.? A 25-gauge needle was inserted towards the left sacroiliac joint under direct fluoroscopic imaging.? Needle tip was advanced until the joint was encountered.? We instilled a total of 3 mL of solution.? The same procedure was then completed on the right side.? Postoperatively needles were removed.? The patient tolerated the procedure well without complication.? The patient reported reduction in pain symptoms postoperatively. Anesthesia: Local Surgeon: Syeda Mancuso Pathology: none sent Condition: stable Disposition: no change
== END 2023-06-29 12:04 | disposition home or self-care (01) ==
LOC: SURGOUT 10:26
PROVIDERS: PCP Nurse Practitioner; Visit Provider Anesthesiology
DX: M46.1 Sacroiliitis, not elsewhere classified (principal)
CPT/HCPCS: 27096; Q9966

== ENCOUNTER 2023-07-11 12:30 | Emergency (ER) | payer MEDICARE, SELFPAY ==
[2023-07-11 12:36] VITALS: BP 162/88; PULSE 87; TEMP 36.8; O2SAT 98; BMI 47.5
--- OUTSIDE RECORDS SUMMARY | 2023-07-11 12:37 | XMS_ITS | CCD ---
Author Organization [facility] Care Team Providers Care Advertising Project Manager Name Role Phone EBHEIM, SUKI Admitting Unavailable EBRAHEIM, SUKI Attending Unavailable AICHHOLZ, ADELAIDA Referring Unavailable AICHHOLZ, ADELAIDA Primary Care Unavailable KS Procedure Practitioner Unavailab HELADIO JacobIL Surgeon Unavailable KS Procedure Practitioner Unavailab CHAPARRITA Goncalves Surgeon Unavailable BRIDGETTE MACEDO Admitting Unavailable BRIDGETTE MACEDO Attending Unavailable AICHHOLZ, SPECIAL EDUCATION SUPERVISOR ADELAIDA Primary Care Unavailable ZIMMER ., DR FINA Iverson Admitting Unavailable ZIMMER ., DR FINA Iverson Attending Unavailable AICHHOLZ, SPECIAL EDUCATION SUPERVISOR ADELAIDA Primary Care Unavailable MCDANIEL ., ZELDA Consulting Unavailable LAKSHMIPATHY ., NARENDRANATH Consulting Paula vailable LAKSHMIPATHY ., NARENDRANATH Admitting Paula vailable LAKSHMIPATHY ., NARJEANARANATH Attending Paula vailable AICHHOLZ, SPECIAL EDUCATION SUPERVISOR ADELAIDA Primary Care Unavailable LAKSHMIPATHY ., NARENDRANATH Consulting Paula vailable AICHHOLZ, SPECIAL EDUCATION SUPERVISOR ADELAIDA Primary Care Unavailable MARKER ., DR CHAUDHRY Admitting Unavailable MARKER ., DR CHAUDHRY Attending Unavailable MARKER ., DR CHAUDHRY Consulting Unavailable AICHHOLZ, SPECIAL EDUCATION SUPERVISOR ADELAIDA Admitting Unavailable AICHHOLZ, SPECIAL EDUCATION SUPERVISOR ADELAIDA Attending Unavailable AICHHOLZ, SPECIAL EDUCATION SUPERVISOR ADELAIDA Primary Care Unavailable ZIMMER ., DR FINA Iverson Admitting Unavailable ZIMMER ., DR FINA Iverson Attending Unavailable AICHHOLZ, SPECIAL EDUCATION SUPERVISOR ADELAIDA Primary Care Unavailable MCDANIEL ., ZELDA Consulting Unavailable ZIMMER ., DR FINA Iverson Admitting Unavailable ZIMMER ., DR FINA Iverson Attending Unavailable AICHHOLZ, SPECIAL EDUCATION SUPERVISOR ADELAIDA Primary Care Unavailable MCDANIEL ., ZELDA Consulting Unavailable AICHHOLZ, SPECIAL EDUCATION SUPERVISOR ADELAIDA Admitting Unavailable AICHHOLZ, SPECIAL EDUCATION SUPERVISOR ADELAIDA Attending Unavailable AICHHOLZ, SPECIAL EDUCATION SUPERVISOR ADELAIDA Primary Care Unavailable AICHHOLZ, SPECIAL EDUCATION SUPERVISOR ADELAIDA Consulting Unavailable AICHHOLZ, SPECIAL EDUCATION SUPERVISOR ADELAIDA Admitting Unavailable AICHHOLZ, SPECIAL EDUCATION SUPERVISOR ADELAIDA Attending Unavailable AICHHOLZ, SPECIAL EDUCATION SUPERVISOR ADELAIDA Primary Care Unavailable AICHHOLZ, SPECIAL EDUCATION SUPERVISOR ADELAIDA Consulting Unavailable MISC, DR COTE Admitting Unavailable MISC, DR COTE Attending Unavailable AICHHOLZ, SPECIAL EDUCATION SUPERVISOR ADELAIDA Primary Care Unavailable AICHHOLZ, SPECIAL EDUCATION SUPERVISOR ADELAIDA Consulting Unavailable PRITESHC, DR COTE Consulting Unavailable STARR, DR KINGSLEY Atkins Consulting Unavailable ZIMMER ., DR FINA Iverson Admitting Unavailable ZIMMER ., DR FINA Iverson Attending Unavailable AICHHOLZ, SPECIAL EDUCATION SUPERVISOR ADELAIDA Primary Care Unavailable MCADNIEL ., ZELDA Consulting Unavailable ZIMMER ., DR FINA Iverson Admitting Unavailable ZIMMER ., DR FINA Iverson Attending Unavailable AICHOLZ, SPECIAL EDUCATION SUPERVISOR ADELAIDA Primary Care Unavailable ZIMMER ., DR FINA Iverson Consulting Unavailable OMID LAY Consulting Unavailable ZIMMER ., DR FINA Iverson Admitting Unavailable ZIMMER ., DR FINA Iverson Attending Unavailable AICHOLZ, SPECIAL EDUCATION SUPERVISOR ADELAIDA Primary Care Unavailable MCDANIEL ., ZELDA Consulting Unavailable AICHHOLZ, SPECIAL EDUCATION SUPERVISOR ADELAIDA Primary Care Unavailable HALKER ., ARIAN Admitting Unavailable HALKER ., ARIAN Attending Unavailable LAKSHMIPATHY ., NARENDRANATH Consulting Paula vailable HALKER ., ARIAN Consulting Unavailable LAKSHMIPATHY ., NARENDRANATH Admitting Paula vailable LAKSHMIPATHY ., NARENDRANATH Attending Paula vailable AICHHOLZ, SPECIAL EDUCATION SUPERVISOR ADELAIDA Primary Care Unavailable LAKSHMIPATHY ., NARENDRANATH Consulting Paula vailable AICHHOLZ, SPECIAL EDUCATION SUPERVISOR ADELAIDA Admitting Unavailable AICHHOLZ, SPECIAL EDUCATION SUPERVISOR ADELAIDA Attending Unavailable AICHHOLZ, SPECIAL EDUCATION SUPERVISOR ADELAIDA Primary Care Unavailable AICHHOLZ, SPECIAL EDUCATION SUPERVISOR ADELAIDA Consulting Unavailable BRIDGETTE MACEDO Admitting Unavailable BRIDGETTE MACEDO Attending Unavailable AICHHOLZ, SPECIAL EDUCATION SUPERVISOR ADELAIDA Primary Care Unavailable STARR, DR KINGSLEY Atkins Consulting Unavailable BRIDGETTE MACEDO Consulting Unavailable PURA, GILMER Admitting Unavailable PURA, GILMER Attending Unavailable PURA, GILMER Consulting Unavailable AICHHOLZ, SPECIAL EDUCATION SUPERVISOR ADELAIDA Primary Care Unavailable AICHHOLZ, SPECIAL EDUCATION SUPERVISOR ADELAIDA Primary Care Unavailable DR WILLI RINALDI Admitting Unavailable DR WILLI RINALDI Attending Unavailable DEEJAY, DR WILLI Atkins Consulting Unavailable AICHHOLZ, SPECIAL EDUCATION SUPERVISOR ADELAIDA Primary Care Unavailable ALMAZ ., DANNY Admitting Unavailable ALMAZ ., DANNY Attending Unavailable DR KINGSLEY CLEMENTS Consulting Unavailable ALMAZ ., DANNY Consulting Unavailable LAKSHMIPATHY ., NARENDRANATH Admitting Paula vailable LAKSHMIPATHY ., NARENDRANATH Attending Paula vailable AICHHOLZ, SPECIAL EDUCATION SUPERVISOR ADELAIDA Primary Care Unavailable AICHHOLZ, SPECIAL EDUCATION SUPERVISOR ADELAIDA Admitting Unavailable AICHHOLZ, SPECIAL EDUCATION SUPERVISOR ADELAIDA Attending Unavailable AICHHOLZ, SPECIAL EDUCATION SUPERVISOR ADELAIDA Primary Care Unavailable AICHHOLZ, SPECIAL EDUCATION SUPERVISOR ADELAIDA Admitting Unavailable AICHHOLZ, SPECIAL EDUCATION SUPERVISOR ADELAIDA Attending Unavailable AICHHOLZ, SPECIAL EDUCATION SUPERVISOR ADELAIDA Primary Care Unavailable AICHHOLZ, SPECIAL EDUCATION SUPERVISOR ADELAIDA Consulting Unavailable ZIEBER, DR KINGSLEY Atkins Consulting Unavailable HALKER ., ARIAN Admitting Unavailable HALKER ., ARIAN Attending Unavailable AICHHOLZ, SPECIAL EDUCATION SUPERVISOR ADELAIDA Primary Care Unavailable Aichholz, Adelaida J Primary Care Provider [phone] MD Gaudencio Monk Admit Provider MD Gaudencio Monk Attending Provider [phone] Dariel RN Andreina Other Provider Unavailable JOHANN Pina Other Provider Unavailable JOHANN Hurtado Other Provider Unavailable JOHANN Crooks Other Provider Unavailable JOHANN Mejias Other Provider Unavailable Judy RN Elzbieta Other Provider Unavailable MD Walker Pringle Other Provider ROSS Marsh Other Provider DO Jessica Murillo Other Provider MD Obdulio Bragg Other Provider DO Joon Cristina Other Provider MD Torin Robert Other Provider [phone] MD Dawn Barrera Other Provider [phone] Karlene, ANP-BC Mari Other Provider [phone] MD Sofi Almanzar Other Provider MD Sharad aGllegos Other Provider MD Aby Cain Other Provider [...] José Luis Roberts MD Primary Care Provider Eduardo Monk Admitting Unavailab Eduardo Connolly Attending [...] Strong Consulting Unavailable Joellen Le Consulting Unavailable DoSevero navarro Consulting Unavailab Rao Tompkins Consulting Unavailable Yuan Shi Consulting Unavailable Delroy Ramirez Consulting Unavailable Berta Comer Consulting Unavailable Negrito Ruiz Consulting Unavailable Lacho Singh Consulting Unavailable ObRachana romano Consulting Unavailable [place] Consulting Unavailable DaromarJeff Consulting Unavailable Urmila Rinaldi Consulting Unavailable Bina Mayberry Consulting Unavailable Mir Bradford Consulting Unavailable Te Da Silva Consulting Unavailable Debra Landaverde Consulting Unavailable Jace Graham Admitting Unavailable Jace Graham Attending Unavailable Adelaida Carrion Primary Care Unavailable Eduardo Monk Admitting Unavailab Eduardo Connolly Attending Unavailab Adelaida Wagner Primary Care Unavailable ASHLEIGH HINES Attending Unavailable ADELAIDA CARRION Attending Unavailable ASHLEIGH HINES Attending Unavailable ADELAIDA CARRION Attending Unavailable JR. HARRY GEORGE C Attending Unavaila ADELAIDA Cui Attending Unavailable Allergies Allergy Classification Reported Allergen(s) Allergy Type Date of Onset Reaction(s) Facility (7 sources) Adhesive Tape; Translations: [ADHESIVE TAPE] Propensity to adverse reactions (disorder) 04-06-19 14 rash [facility] Repository (3 sources) levETIRAcetam; Translations: [KEPPRA] Drug Allergy 07-02-19 19 [facility] Repository (3 sources) milnacipran; Translations: [SAVELLA] Drug Allergy 03-14-20 13 [facility] Repository (1 source) Penicillin; Translations: [PENICILLIN] Drug Allergy 01-16-20 18 [facility] Repository (5 sources) Prochlorperazin e; Translations: [COMPAZINE] Drug Allergy 03-14-20 13 agitation [facility] Repository (12 sources) Tetracycline; Translations: [TETRACYCLINE] Drug Allergy 04-06-19 13 Hives, Unknown [facility] Repository (4 sources) Penicillins Drug allergy (disorder) 04-06-19 13 Unknown Reaction [facility] Repository (9 sources) levETIRAcetam; Translations: [levetiracetam] Drug Allergy 12-13-19 22 Hallucinations , Other [facility] (9 sources) milnacipran; Translations: [milnacipran] Drug Allergy 12-13-19 22 hives, Hallucinations , Other, Unknown [facility] (7 sources) Prochlorperazin e; Translations: [prochlorperazi ne] Drug Allergy 12-13-19 22 Unknown, Other [facility] (2 sources) Penicillin G Drug Allergy as a child [facility] Other (2 sources) Tetracaine Drug Allergy Unknown [facility] Other (4 sources) Penicillins Drug Intolerance 12-13-19 22 Anaphylaxis [facility] (4 sources) Other Propensity to adverse reactions 12-13-19 22 Other [facility] (4 sources) Wound Dressing Adhesive Drug Allergy 09-20-19 23 Rash, Unknown [facility] (1 source) Penicillin Drug Allergy 12-20-19 23 [facility] Repository (1 source) Penicillins Drug allergy (disorder) 03-23-20 23 [facility] Repository (1 source) Tetracaine Drug Allergy 12-20-19 [facility] Repository Medications Current Medications Medication Drug Class(es) [...] 2023 12:00am take 2 tablets by mo ut once daily at bedtime Melatonin 10 MG 2 TABLETS Orally QHS Active Melatonin 12 MG tablet dispersible (4 sources) Melatonin 12 MG tablet dispersible 1 (one) time each day at the same time. 0 Active Multiple Vitamins-Minerals (BARIATRIC MULTIVITAMINS/IRON PO) (4 sources) Multiple Vitamins-Minerals (BARIATRIC MULTIVITAMINS/IRON PO) Bariatric Multivitamins/Iron 0 Active Fadkhcibxhit-Duz-Cjsg-Fa- Vit K (Bariatric Multivitamins) 45 mg iron- 800 mcg-120 mcg Capsule (2 sources) Start: 11-17-2022 take 1 capsule by mouth once daily Apbtkliihvvy-Wvl-Qnsj-Fa -Vit K (Bariatric Multivitamins) 45 mg iron- 800 mcg-120 mcg Capsule Active 1 CAP PO Daily November 16, 2022 11:00pm Start: 11-17-2022 take 1 capsule by [facility] once daily Lqcwidqjkpip-Yca-Srqp-Fa-Vit K (Bariatri c Multivitamins) 45 mg iron- 800 mcg-120 mcg Capsule Active 1 CAP PO Daily November 17, 2022 12:00am nystatin 100 unt/mg topical powder (4 sources) Polyene Antifungal nystatin (Myc ostatin) 429327 UNIT/GM powder Apply 1 application topically in the morning and 1 application before bedtime. 0 Active OLANZapine 5 mg oral tablet (6 sources) Atypical Antipsychotic Start: take 5 mg by mouth every six hours Olanzapine Active 5 MG PO Q6H 30 15 November 17, 2022 11:00pm take 1 tablet by kenyatta every six hours as needed OLANZapine zydis [...] status] Onset: 05-18-1905-18-2023 Episodic Other gastrointestinal disorders (4 sources) Dysphagia; [...] syndrome; Translations: [Restless legs syndrome (RLS)] Onset: 11-18-19 23 11-20-2022 Chronic Other nervous system disorders (2 sources) [...] Allergic rhinitis; Translations: [Allergic rhinitis, unspecified] Onset: 05-18-19 24 05-18-2023 Chronic Paralysis (4 sources) Right hemiparesis; Translations: [Hemiplegia, unspecified affecting right dominant side] Onset: 02-12-05-18-2023 Chronic Residual codes; unclassified (1 source) Sleep [...] Episodic Other aftercare (1 source) 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; Translations: [OTH 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 CURRENT DRUG THERAPY] Onset: 04-29-2022 Episodic Other [...] on 03-23-2023 Amphetamines Ql (U) Negative Negative [facility] Barbiturates [Presence] in U rine by Screen methodOrdered By: Jace Graham on 03-23-2023 Barbiturates Screen Ql (U) Negative Negative [facility] Benzodiazepines Screen Ql (U )Ordered By: Jace Graham on 03-23-2023 Benzodiazepines Ql (U) Negative Negative [facility] Benzoylecgonine [Presence] i n Urine by Screen methodOrdered By: Jace Graham on 03-23-2023 Benzoylecgonine Screen Ql (U) Negative Negative [facility] Cannabinoids [Presence] in U rine by Screen methodOrdered By: Jace Graham on 03-23-2023 Cannabinoids Screen Ql (U) Negative Negative [facility] Comment on above: These are unconfirme d results and should not be used for legal purposes. Drug Cut-Off Concentration: AMPH 1000 ng/mL ELKIN 200 ng/mL ATIYA 200 ng/mL COCM 300 ng/mL OP 300 ng/mL PCP 25 ng/mL THC 20 ng/mL Drug Screen,Urineon 03-23-20 Amphetamine Screen,Urine Negative Normal Negative [facility] Comment on above: Performed By: #### U RDS #### [address] Barbiturate Screen,Urine Negative Normal Negative [facility] Comment on above: Performed By: #### U RDS #### [address] Benzodiazepines Screen,Urine Negative Normal Negative [facility] Comment on above: Performed By: #### U RDS #### [address] Cannabinoid Screen,Urine Negative Normal Negative [facility] Comment on above: Result Comment: Thes e are unconfirmed results and should not be used for legal purposes. Drug Cut-Off Concentration: AMPH 1000 ng/mL ELKIN 200 ng/mL ATIYA 200 ng/mL COCM 300 ng/mL OP 300 ng/mL PCP 25 ng/mL THC 20 ng/mL PERFORMED BY: [place] [address] PATHOLOGIST HANDCREW FOREMAN AN CURRY M.D. Performed By: #### U RDS #### [place] [address] [place] Cocaine Screen,Urine Negative Normal Negative [facility] Comment on above: Performed By: #### U RDS #### [place] [address] [place] Opiate Screen,Urine Negative Normal Negative [facility] Comment on above: Performed By: #### U RDS #### [address] Phencyclidine Screen,Urine Negative Normal Negative [facility] Comment on above: Performed By: #### U RDS #### [facility] [address] Opiates [Presence] in Urine by Screen methodOrdered By: Jace Graham on 03-23-2023 Opiates Screen Ql (U) Negative Negative [facility] Phencyclidine Screen Ql (U)O rdered By: Jace Graham on 03-23-2023 Phencyclidine Ql (U) Negative Negative [facility] Cholesterol [Mass/volume] in Serum or PlasmaOrdered By: Eduardo Monk on 11-18-2022 Cholesterol [Mass/Vol] 159 mg/dL 140-200 [facility] Comment on above: Chol less than 200 m g/dl low riskChol 201-239 mg/dl borderline riskChol 240 mg/dl and greater high risk Cholesterol in LDL Calc [Mas s/Vol]Ordered By: Eduardo Monk on 11-18-2022 Cholesterol in LDL [Mass/Vol] 84 mg/dL 0-100 [facility] Comment on above: LDL ATP III CLASSIFI CATIONLDL less than 100 mg/dL OptimalLDL 100-129 mg/dL Near or above optimalLDL 130-159 mg/dL Borderline highLDL 160-189 mg/dL HighLDL greater than 189 mg/dL Very high Cholesterol in VLDL Calc [Ma ss/Vol]Ordered By: Eduardo Monk on 11-18-2022 Cholesterol in VLDL [Mass/Vol] 28 mg/dL [facility] Lipid Panelon 11-18-2022 Cholesterol [Mass/Vol] 159 mg/dL Normal 140-200 [facility] Comment on above: Order Comment: teri barney to tomorrow morning Result Comment: Chol less than 200 mg/dl low risk Chol 201-239 mg/dl borderline risk Chol 240 mg/dl and greater high risk Performed By: #### L IPID #### [facility] [address] [place] [phone] [facility] Cholesterol in HDL [Mass/Vol] 46 mg/dL Normal 23-92 [facility] Comment on above: Order Comment: teri barney to tomorrow morning Result Comment: HDL CHOL ATP-III CLASSIFICATION Cardiovascular Risk HDL > or equal to 60 mg/dL LOW HDL < 40 mg/dL HIGH Performed By: #### L IPID #### [facility] [address] [place] [phone] [facility] Cholesterol.total/Chol esterol in HDL [Mass ratio] 3.5 {ratio} Normal <5.0 [facility] Comment on above: Order Comment: teri barney to tomorrow morning Result Comment: PERF ORMED BY: [place] [address] PATHOLOGIST HANDCREW FOREMAN AN CURRY M.D. Performed By: #### L IPID #### [facility] [address] LDL Cholesterol,Calculated 84 mg/dL Normal 0-100 [facility] Comment on above: Order Comment: teri barney to tomorr morning Result Comment: LDL ATP III CLASSIFICATION LDL less than 100 mg/dL Optimal LDL 100-129 mg/dL Near or above optimal LDL 130-159 mg/dL Borderline high LDL 160-189 mg/dL High LDL greater than 189 mg/dL Very high Performed By: #### L IPID #### [facility] [address] Triglyceride w/Reflex 144 mg/dL Normal 0-149 [facility] Comment on above: Order Comment: teri barney to tomorr morning Result Comment: TRIG ATP III CLASSIFICATION TRIG less than 150 mg/dL Normal TRIG 150-199 mg/dL Borderline high TRIG 200-500 mg/dL High TRIG greater than 500 mg/dL Very high Standard traceable to the Center for Disease Conrtrol and Prevention (CDC) test method. Performed By: #### L IPID #### [facility] [address] [place] [phone] [facility] VLDL CHOLESTEROL 28 mg/dL Normal [facility] Comment on above: Order Comment: teri barney to orr morning Performed By: #### L IPID #### [facility] [address] [place] [phone] [facility] Serum or plasma high density lipoprotein (HDL) cholesterol measurementOrdered By: Eduardo Monk on 11-18-2022 Cholesterol in HDL [Mass/Vol] 46 mg/dL 23-92 [facility] Comment on above: HDL CHOL ATP-III CLA SSIFICATION Cardiovascular RiskHDL > or equal to 60 mg/dL LOWHDL < 40 mg/dL HIGH Serum or plasma total choles terol/high density lipoprotein (HDL) cholesterol mass ratOrdered By: Eduardo Monk on 11-18-2022 Cholesterol.total/Chol esterol in HDL [Mass ratio] 3.5 {ratio} <5.0 [facility] Thyroid Stimulating Hormoneo n 11-18-2022 TSH Qn 2.13 m[IU]/L Normal 0.45-5.33 [facility] Comment on above: Performed By: #### T SH3, [id number] #### [address] Thyrotropin [Units/volume] i n Serum or PlasmaOrdered By: Eduardo Monk on 11-18-2022 TSH Qn 2.13 m[IU]/L 0.45-5.33 [facility] Triglyceride [Mass/volume] i n Serum or PlasmaOrdered By: Eduardo Monk on 11-18-2022 Triglyceride [Mass/Vol] 144 mg/dL 0-149 [facility] Comment on above: TRIG ATP III CLASSIF ICATIONTRIG less than 150 mg/dL NormalTRIG 150-199 mg/dL Borderline highTRIG 200-500 mg/dL High TRIG greater than 500 mg/dL Very highStandard traceable to the Center for Disease Conrtrol and Prevention (CDC) test method. Vitamin D 25 Hydroxy Totalon 11-18-2022 Vitamin D 25 Hydroxy Total 50.4 ng/mL Normal 30-100 [facility] Comment on above: Result Comment: SKYLER MIN D STATUS 25(OH)VITAMIN D RANGE (ng/mL) Deficient <20 Insufficient 20 to <30 Sufficient 30 to 100 Reference: Bin MF,Lakshmi NC, Cristian SMART, et al. Evaluation,treatment, and prevention of vitamin D deficiency; an Endocrine Society clinical practice guideline. JCEM. 2010; 96(7):1911-30. PERFORMED BY: [facility] [address] [place] [address] PATHOLOGIST HANDCREW FOREMAN AN CURRY M.D. Performed By: #### T SH3, [id number] #### [facility] [address] Vitamin D+Metabolites [Mass/ volume] in Serum or PlasmaOrdered By: Eduardo Monk on 11-18-2022 Vitamin D+Metabolites [Mass/Vol] 50.4 ng/mL 30-100 [facility] Comment on above: VITAMIN D STATUS 25( [place])VITAMIN D RANGE (ng/mL) Deficient <20 Insufficient 20 to <30Sufficient 30 to 100Reference: Bin MF,Lakshmi NC, Cristian SMART, et al. Evaluation,treatment, and prevention of vitamin D deficiency; an Endocrine Society clinical practice guideline. JCEM. 2010; 96(7):1911-30. CBC AUTO DIFFon 07-25-2022 BASO # 0.1 103/ul Normal 0.0-0.1 [facility] Comment on above: Performed By: #### A 1C #### [facility] [address] [place] [address] Dr. Bebeto Alvarado Basophils/100 WBC (Bld) 0.6 % Normal 0.2-2.0 [facility] Comment on above: Performed By: #### A 1C #### [facility] [address] [place] [address] Dr. Bebeto Alvarado EO # 0.2 103/ul Normal 0.0-0.7 [facility] Comment on above: Performed By: #### A 1C #### [facility] [address] [address] [address] Bebeto Alvarado Eosinophils/100 WBC (Bld) 2.3 % Normal 0.9-7.0 [facility] Comment on above: Performed By: #### A 1C #### [facility] [address] [address] [address] Bebeto Alvarado Erythrocyte distribution width (RBC) [Ratio] 13.8 % Normal 11.0-15.0 [facility] Comment on above: Performed By: #### A 1C #### [facility] [address] [address] [address] Bebeto Alvarado Hematocrit (Bld) [Volume fraction] 41.2 % Normal 36.0-48.0 [facility] Comment on above: Performed By: #### A 1C #### [facility] [address] [place] [address] Dr. Bebeto Alvarado Hemoglobin (Bld) [Mass/Vol] 13.2 g/dL Normal 12.0-16.0 [facility] Comment on above: Performed By: #### A 1C #### [facility] [address] [place] [address] Dr. Bebeto Alvarado IG # 0.03 10e3/ul Normal 0.00-0.03 [facility] Comment on above: Performed By: #### A 1C #### [facility] [address] [place] [address] Dr. Bebeto Alvarado IG % 0.4 % Normal 0.0-0.5 [facility] Comment on above: Performed By: #### A 1C #### [facility] [address] [place] [address] Dr. Bebeto Alvarado LYMPH # 2.1 103/ul Normal 1.2-3.8 [facility] Comment on above: Performed By: #### A 1C #### [facility] [address] [place] [address] Dr. Bebeto Alvarado Lymphocytes/100 WBC (Bld) 25.9 % Normal 20.5-60.0 [facility] Comment on above: Performed By: #### A 1C #### [facility] [address] [place] [address] Dr. Bebeto Alvarado MANUAL DIFF REQ NO Normal [facility] Comment on above: Performed By: #### A 1C #### [facility] [address] [place] [address] Dr. Bebeto Alvarado MCH (RBC) [Entitic mass] 28.0 pg Normal 26.7-34.0 [facility] Comment on above: Performed By: #### A 1C #### [facility] [address] [place] [address] Dr. Bebeto Alvarado MCHC (RBC) [Mass/Vol] 32.0 g/dL Normal 29.9-35.2 [facility] Comment on above: Performed By: #### A 1C #### [facility] [address] [place] [address] Dr. Bebeto Alvarado MCV (RBC) [Entitic vol] 87.5 fL Normal 81.0-99.0 [facility] Comment on above: Performed By: #### A 1C #### [facility] [address] [place] [address] Dr. Bebeto Alvarado MONO # 0.5 103/ul Normal 0.3-0.8 [facility] Comment on above: Performed By: #### A 1C #### [facility] [address] [place] [address] Dr. Bebeto Alvarado Monocytes/100 WBC (Bld) 6.6 % Normal 1.7-12.0 [facility] Comment on above: Performed By: #### A 1C #### [facility] [address] [place] [address] Dr. Bebeto Alvarado NEUT # 5.1 103/ul Normal 1.4-6.5 [facility] Comment on above: Performed By: #### A 1C #### [facility] [address] [place] [address] Dr. Bebeto Alvarado Neutrophils/100 WBC (Bld) 64.2 % Normal 43.0-75.0 [facility] Comment on above: Performed By: #### A 1C #### [facility] [address] [place] [address] Dr. Bebeto Alvarado Platelet mean volume (Bld) [Entitic vol] 11.2 fL Normal 9.5-13.5 [facility] Comment on above: Performed By: #### A 1C #### [facility] [address] [place] [address] Dr. Bebeto Alvarado PLT 252 103/ul Normal 150-450 [facility] Comment on above: Performed By: #### A 1C #### [facility] [address] [place] [address] Dr. Bebeto Alvarado RBC 4.71 106/ul Normal 4.20-5.40 [facility] Comment on above: Performed By: #### A 1C #### [facility] [address] [address] [address] Bebeto Alvarado WBC 8.0 103/ul Normal 4.0-11.0 [facility] Comment on above: Performed By: #### A 1C #### [facility] [address] [address] [address] Bebeto Alvarado GLYCOHEMOGLOBIN A1Con 2022 ADA RECOMMENDATION SEE BELOW Normal [facility] Comment on above: Result Comment: ADA RECOMMENDED LIMIT 4.0 - 6.0 ADA THERAPEUTIC TARGET < 7.0 ACTION SUGGESTED > 7.0 Performed By: #### A 1C #### [facility] [address] [place] [address] Dr. Bebeto Alvarado Glucose [Mass/Vol] 114 mg/dL Normal [facility] Comment on above: Performed By: #### A 1C #### [facility] [address] [address] [address] Bebeto Alvarado HbA1c (Bld) [Mass fraction] 5.6 % Normal 4.5-6.2 [facility] Comment on above: Performed By: #### A 1C #### [facility] [address] [place] [address] Dr. Bebeto Alvarado IRONon 07-25-2022 Iron [Mass/Vol] 60.0 ug/dL Normal 50.0-170.0 [facility] Comment on above: Performed By: #### V ITB12, IRON #### [facility] [address] [place] [address] Dr. Bebeto Alvarado LIPID PROFILEon 07-25-2022 CHOL-HDL RATIO NORM SEE BELOW Normal [facility] Comment on above: Result Comment: 3.3 - 4.4 LOW RISK 4.4 - 7.1 AVERAGE RISK 7.1 - 11.0 MODERATE RISK >11.0 HIGH RISK Performed By: #### C MP, LIPID #### [facility] [address] [place] [address] Dr. Bebeto Alvarado Cholesterol [Mass/Vol] 144 mg/dL Normal <=200 [facility] Comment on above: Performed By: #### C MP, LIPID #### [facility] [address] [address] [address] Bebeto Alvarado Cholesterol in HDL [Mass/Vol] 39 mg/dL Critically low 40-60 [facility] Comment on above: Performed By: #### C MP, LIPID #### [facility] [address] [address] [address] Bebeto Alvarado Cholesterol in LDL [Mass/Vol] 74.6 mg/dL Normal [facility] Comment on above: Performed By: #### C MP, LIPID #### [facility] [address] [address] [address] Bebeto Alvarado Cholesterol.total/Chol esterol in HDL [Mass ratio] 3.7 {ratio} Normal [facility] Comment on above: Performed By: #### C MP, LIPID #### [facility] [address] [address] [address] Bebeto Alvarado HDL NORMAL > or = 60 mg/dl - LO W CARDIOVASCULAR RISK <40 mg/dl - HIGH CARDIOVASCULAR RISK Normal [facility] Comment on above: Performed By: #### C MP, LIPID #### [facility] [address] [address] [address] Bebeto Alvarado LDL CALC NORMAL SEE BELOW Normal [facility] Comment on above: Result Comment: <100 mg/dl OPTIMAL 100 - 129 mg/dl NEAR OR ABOVE OPTIMAL 130 - 159 mg/dl BORDERLINE HIGH 160 - 189 mg/dl HIGH >190 mg/dl VERY HIGH Performed By: #### C MP, LIPID #### [facility] [address] [address] [address] Bebeto Alvarado Triglyceride [Mass/Vol] 152 mg/dL Critically high <=150 [facility] Comment on above: Performed By: #### C MP, LIPID #### [facility] [address] [address] [address] Bebeto Alvarado VLDL CALC 30.4 mg/dL Normal [facility] Comment on above: Performed By: #### C MP, LIPID #### [facility] [address] [address] [address] Bebeto Alvarado PROF 14(COMP METB)on 023 Albumin [Mass/Vol] 3.7 g/dL Normal 3.4-5.0 [facility] Comment on above: Performed By: #### C MP, LIPID #### [facility] [address] [address] [address] Bebeto Alvarado Albumin/Globulin [Mass ratio] 0.9 {ratio} Normal [facility] Comment on above: Performed By: #### C MP, LIPID #### [facility] [address] [place] [address] Dr. Bebeto Alvarado ALP [Catalytic activity/Vol] 90 U/L Normal 46-116 [facility] Comment on above: Performed By: #### C MP, LIPID #### [facility] [address] [place] [address] Dr. Bebeto Alvarado ALT [Catalytic activity/Vol] 38 U/L Normal 14-59 [facility] Comment on above: Performed By: #### C MP, LIPID #### [facility] [address] [place] [address] Dr. Bebeto Alvarado Anion gap [Moles/Vol] 12.1 mmol/L Normal [facility] Comment on above: Performed By: #### C MP, LIPID #### [facility] [address] [place] [address] Dr. Bebeto Alvarado AST [Catalytic activity/Vol] 26 U/L Normal 15-37 [facility] Comment on above: Performed By: #### C MP, LIPID #### [facility] [address] [place] [address] Dr. Bebeto Alvarado Bilirubin [Mass/Vol] 0.3 mg/dL Normal 0.2-1.0 [facility] Comment on above: Performed By: #### C MP, LIPID #### [facility] [address] [address] [address] Bebeto Alvarado Calcium [Mass/Vol] 9.3 mg/dL Normal 8.5-10.1 [facility] Comment on above: Performed By: #### C MP, LIPID #### [facility] [address] [address] [address] Bebeto Alvarado Chloride [Moles/Vol] 107 mmol/L Normal 98-107 [facility] Comment on above: Performed By: #### C MP, LIPID #### [facility] [address] [place] [address] Dr. Bebeto Alvarado CO2 [Moles/Vol] 27.9 mmol/L Normal 21.0-32.0 [facility] Comment on above: Performed By: #### C MP, LIPID #### [facility] [address] [place] [address] Dr. Bebeto Alvarado Creatinine [Mass/Vol] 0.95 mg/dL Normal 0.55-1.02 [facility] Comment on above: Performed By: #### C MP, LIPID #### [facility] [address] [place] [address] Dr. Bebeto Alvarado EGFR-AF AZERBAIJANI >60 Normal >=60 [facility] Comment on above: Performed By: #### C MP, LIPID #### [facility] [address] [place] [address] Dr. Bebeto Alvarado EGFR-NON AF AZERBAIJANI 60 mL/min/1.73m2 Normal >=60 [facility] Comment on above: Performed By: #### C MP, LIPID #### [facility] [address] [place] [address] Dr. Bebeto Alvarado Globulin (S) [Mass/Vol] 3.9 g/dL Normal [facility] Comment on above: Performed By: #### C MP, LIPID #### [facility] [address] [place] [address] Dr. Bebeto Alvarado Glucose [Mass/Vol] 108 mg/dL Critically high 74-106 [facility] Comment on above: Performed By: #### C MP, LIPID #### [facility] [address] [place] [address] Dr. Bebeto Alvarado Potassium [Moles/Vol] 4.0 mmol/L Normal 3.5-5.1 [facility] Comment on above: Performed By: #### C MP, LIPID #### [facility] [address] [place] [address] Dr. Bebeto Alvarado Protein [Mass/Vol] 7.6 g/dL Normal 6.4-8.2 [facility] Comment on above: Performed By: #### C MP, LIPID #### [facility] [address] [place] [address] Dr. Bebeto Alvarado Sodium [Moles/Vol] 143 mmol/L Normal 136-145 [facility] Comment on above: Performed By: #### C MP, LIPID #### [facility] [address] [place] [address] Dr. Bebeto Alvarado Urea nitrogen [Mass/Vol] 15.0 mg/dL Normal 7.0-18.0 [facility] Comment on above: Performed By: #### C MP, LIPID #### [facility] [address] [place] [address] Dr. Bebeto Alvarado Urea nitrogen/Creatinine [Mass ratio] 15.8 mg/mg Normal [facility] Comment on above: Performed By: #### C MP, LIPID #### [facility] [address] [place] [address] Dr. Bebeto Alvarado UA RANDOM W/MICROSCOPICon BACTERIA NONE SEEN Normal NONE SEEN [facility] Comment on above: Performed By: #### A 1C #### [facility] [address] [place] [address] Dr. Bebeto Alvarado Bilirubin Ql (U) Negative Normal NEGATIVE [facility] Comment on above: Performed By: #### A 1C #### [facility] [address] [place] [address] Dr. Bebeto Alvarado CAST NONE SEEN Normal NONE SEEN [facility] Comment on above: Performed By: #### A 1C #### [facility] [address] [place] [address] Dr. Bebeto Alvarado Clarity (U) CLEAR Normal CLEAR [facility] Comment on above: Performed By: #### A 1C #### [facility] [address] [place] [address] Dr. Bebeto Alvarado Color (U) YELLOW Normal YELLOW [facility] Comment on above: Performed By: #### A 1C #### [facility] [address] [place] [address] Dr. Bebeto Alvarado Crystals LM Nom (Urine sed) NONE SEEN Normal NONE SEEN [facility] Comment on above: Performed By: #### A 1C #### [facility] [address] [place] [address] Dr. Bebeto Alvarado Epithelial cells LM Ql (Urine sed) NONE SEEN Normal NONE SEEN /RARE [facility] Comment on above: Performed By: #### A 1C #### [facility] [address] [place] [address] Dr. Bebeto Alvarado Glucose Ql (U) Negative Normal NEGATIVE [facility] Comment on above: Performed By: #### A 1C #### [facility] [address] [place] [address] Dr. Bebeto Alvarado Hemoglobin Ql (U) Negative Normal NEGATIVE [facility] Comment on above: Performed By: #### A 1C #### [facility] [address] [place] [address] Dr. Bebeto Alvarado Ketones Ql (U) Negative Normal NEGATIVE [facility] Comment on above: Performed By: #### A 1C #### [facility] [address] [place] [address] Dr. Bebeto Alvarado LEUKOCYTES Negative Normal NEGATIVE [facility] Comment on above: Performed By: #### A 1C #### [facility] [address] [place] [address] Dr. Bebeto Alvarado MUCOUS NONE SEEN Normal NONE SEEN [facility] Comment on above: Performed By: #### A 1C #### [facility] [address] [place] [address] Dr. Bebeto Alvarado Nitrite Ql (U) Negative Normal NEGATIVE [facility] Comment on above: Performed By: #### A 1C #### [facility] [address] [place] [address] Dr. Bebeto Alvarado pH (U) 5.5 [pH] Normal 5-9 [facility] Comment on above: Performed By: #### A 1C #### [facility] [address] [place] [address] Dr. Bebeto Alvarado RBC NONE SEEN Abnormal 0-2 [facility] Comment on above: Performed By: #### A 1C #### [facility] [address] [place] [address] Dr. Bebeto Alvarado SPEC GRAVITY 1.030 Abnormal 1.005-<=1.02 5 [facility] Comment on above: Performed By: #### A 1C #### [facility] [address] [place] [address] Dr. Bebeto Alvarado UA PROTEIN Negative Normal NEGATIVE/ TRACE [facility] Comment on above: Performed By: #### A 1C #### [facility] [address] [place] [address] Dr. Bebeto Alvarado Urobilinogen Qn (U) 0.2 {Katerin'U}/dL Normal 0.2 - 1. 0 [facility] Comment on above: Performed By: #### A 1C #### [facility] [address] [place] [address] Dr. Bebeto Alvarado WBC NONE SEEN Normal NONE SEEN [facility] Comment on above: Performed By: #### A 1C #### [facility] [address] [place] [address] Dr. Bebeto Alvarado VITAMIN B12on 07-25-2022 Cobalamin (Vitamin B12) [Mass/Vol] 1684.0 pg/mL Critically high 193.0-986.0 [facility] Comment on above: Performed By: #### V ITB12, IRON #### [facility] [address] [place] [address] Dr. Bebeto Alvarado PROF CHEM 8 (BAS METB)on Anion gap [Moles/Vol] 12.2 mmol/L Normal [facility] Comment on above: Performed By: #### B MP #### [facility] [address] [place] [address] Dr. Bebeto Alvarado Calcium [Mass/Vol] 8.9 mg/dL Normal 8.5-10.1 [facility] Comment on above: Performed By: #### B MP #### [facility] [address] [place] [address] Dr. Bebeto Alvarado Chloride [Moles/Vol] 105 mmol/L Normal 98-107 [facility] Comment on above: Performed By: #### B MP #### [facility] [address] [address] [address] Bebeto Alvarado CO2 [Moles/Vol] 29.6 mmol/L Normal 21.0-32.0 [facility] Comment on above: Performed By: #### B MP #### [facility] [address] [address] [address] Bebeto Alvarado Creatinine [Mass/Vol] 0.95 mg/dL Normal 0.55-1.02 [facility] Comment on above: Performed By: #### B MP #### [facility] [address] [address] [address] Bebeto Alvarado EGFR-AF AZERBAIJANI >60 Normal >=60 [facility] Comment on above: Performed By: #### B MP #### [facility] [address] [address] [address] Bebeto Alvarado EGFR-NON AF AZERBAIJANI 60 mL/min/1.73m2 Normal >=60 [facility] Comment on above: Performed By: #### B MP #### [facility] [address] [address] [address] Bebeto Alvarado Glucose [Mass/Vol] 101 mg/dL Normal 74-106 [facility] Comment on above: Performed By: #### B MP #### [facility] [address] [address] [address] Bebeto Alvarado Potassium [Moles/Vol] 3.8 mmol/L Normal 3.5-5.1 [facility] Comment on above: Performed By: #### B MP #### [facility] [address] [address] [address] Bebeto Alvarado Sodium [Moles/Vol] 143 mmol/L Normal 136-145 [facility] Comment on above: Performed By: #### B MP #### [facility] [address] [place] [address] Dr. Bebeto Alvarado Urea nitrogen [Mass/Vol] 16.0 mg/dL Normal 7.0-18.0 [facility] Comment on above: Performed By: #### B MP #### [facility] [address] [place] [address] Dr. Bebeto Alvarado Urea nitrogen/Creatinine [Mass ratio] 16.8 mg/mg Normal [facility] Comment on above: Performed By: #### B MP #### [facility] [address] [place] [address] Dr. Bebeto Alvarado CBC AUTO DIFFon 11-21-2021 BASO # 0.1 103/ul Normal 0.0-0.1 [facility] Comment on above: Performed By: #### A 1C #### [facility] [address] [place] [address] Dr. Bebeto Alvarado Basophils/100 WBC (Bld) 1.0 % Normal 0.2-2.0 [facility] Comment on above: Performed By: #### A 1C #### [facility] [address] [place] [address] Dr. Bebeto Alvarado EO # 0.2 103/ul Normal 0.0-0.7 [facility] Comment on above: Performed By: #### A 1C #### [facility] [address] [place] [address] Dr. Bebeto Alvarado Eosinophils/100 WBC (Bld) 3.3 % Normal 0.9-7.0 [facility] Comment on above: Performed By: #### A 1C #### [facility] [address] [place] [address] Dr. Bebeto Alvarado Erythrocyte distribution width (RBC) [Ratio] 13.8 % Normal 11.0-15.0 [facility] Comment on above: Performed By: #### A 1C #### [facility] [address] [place] [address] Dr. Bebeto Alvarado Hematocrit (Bld) [Volume fraction] 38.8 % Normal 36.0-48.0 [facility] Comment on above: Performed By: #### A 1C #### [facility] [address] [place] [address] Dr. Bebeto Alvarado Hemoglobin (Bld) [Mass/Vol] 12.5 g/dL Normal 12.0-16.0 [facility] Comment on above: Performed By: #### A 1C #### [facility] [address] [place] [address] Dr. Bebeto Alvarado IG # 0.02 10e3/ul Normal 0.00-0.03 [facility] Comment on above: Performed By: #### A 1C #### [facility] [address] [place] [address] Dr. Bebeto Alvarado IG % 0.3 % Normal 0.0-0.5 [facility] Comment on above: Performed By: #### A 1C #### [facility] [address] [place] [address] Dr. Bebeto Alvarado LYMPH # 1.9 103/ul Normal 1.2-3.8 [facility] Comment on above: Performed By: #### A 1C #### [facility] [address] [place] [address] Dr. Bebeto Alvarado Lymphocytes/100 WBC (Bld) 29.6 % Normal 20.5-60.0 [facility] Comment on above: Performed By: #### A 1C #### [facility] [address] [place] [address] Dr. Bebeto Alvarado MANUAL DIFF REQ NO Normal [facility] Comment on above: Performed By: #### A 1C #### [facility] [address] [place] [address] Dr. Bebeto Alvarado MCH (RBC) [Entitic mass] 28.0 pg Normal 26.7-34.0 [facility] Comment on above: Performed By: #### A 1C #### [facility] [address] [place] [address] Dr. Bebeto Alvarado MCHC (RBC) [Mass/Vol] 32.2 g/dL Normal 29.9-35.2 [facility] Comment on above: Performed By: #### A 1C #### [facility] [address] [place] [address] Dr. Bebeto Alvarado MCV (RBC) [Entitic vol] 86.8 fL Normal 81.0-99.0 [facility] Comment on above: Performed By: #### A 1C #### [facility] [address] [place] [address] Dr. Bebeto Alvarado MONO # 0.4 103/ul Normal 0.3-0.8 [facility] Comment on above: Performed By: #### A 1C #### [facility] [address] [place] [address] Dr. Bebeto Alvarado Monocytes/100 WBC (Bld) 5.7 % Normal 1.7-12.0 [facility] Comment on above: Performed By: #### A 1C #### [facility] [address] [place] [address] Dr. Bebeto Alvarado NEUT # 3.8 103/ul Normal 1.4-6.5 [facility] Comment on above: Performed By: #### A 1C #### [facility] [address] [place] [address] Dr. Bebeto Alvarado Neutrophils/100 WBC (Bld) 60.1 % Normal 43.0-75.0 [facility] Comment on above: Performed By: #### A 1C #### [facility] [address] [place] [address] Dr. Bebeto Alvarado Platelet mean volume (Bld) [Entitic vol] 11.0 fL Normal 9.5-13.5 [facility] Comment on above: Performed By: #### A 1C #### [facility] [address] [place] [address] Dr. Bebeto Alvarado PLT 264 103/ul Normal 150-450 [facility] Comment on above: Performed By: #### A 1C #### [facility] [address] [place] [address] Dr. Bebeto Alvarado RBC 4.47 106/ul Normal 4.20-5.40 [facility] Comment on above: Performed By: #### A 1C #### [facility] [address] [place] [address] Dr. Bebeto Alvarado WBC 6.3 103/ul Normal 4.0-11.0 [facility] Comment on above: Performed By: #### A 1C #### [facility] [address] [address] [address] Bebeto Alvarado GLYCOHEMOGLOBIN A1Con 2021 ADA RECOMMENDATION SEE BELOW Normal [facility] Comment on above: Result Comment: ADA RECOMMENDED LIMIT 4.0 - 6.0 ADA THERAPEUTIC TARGET < 7.0 ACTION SUGGESTED > 7.0 Performed By: #### A 1C #### [facility] [address] [address] [address] Bebeto Alvarado Glucose [Mass/Vol] 105 mg/dL Normal [facility] Comment on above: Performed By: #### A 1C #### [facility] [address] [place] [address] Dr. Bebeto Alvarado HbA1c (Bld) [Mass fraction] 5.3 % Normal 4.5-6.2 [facility] Comment on above: Performed By: #### A 1C #### [facility] [address] [place] [address] Dr. Bebeto Alvarado IRONon 11-21-2021 Iron [Mass/Vol] 59.0 ug/dL Normal 50.0-170.0 [facility] Comment on above: Performed By: #### A 1C #### [facility] [address] [place] [address] Dr. Bebeto Alvarado LIPID PROFILEon 11-21-2021 CHOL-HDL RATIO NORM SEE BELOW Normal [facility] Comment on above: Result Comment: 3.3 - 4.4 LOW RISK 4.4 - 7.1 AVERAGE RISK 7.1 - 11.0 MODERATE RISK >11.0 HIGH RISK Performed By: #### C MP, LIPID #### [facility] Laboratory [address] [place] [address] Dr. Bebeto Alvarado Cholesterol [Mass/Vol] 139 mg/dL Normal <=200 [facility] Comment on above: Performed By: #### C MP, LIPID #### [facility] Laboratory [address] [place] [address] Dr. Bebeto Alvarado Cholesterol in HDL [Mass/Vol] 35 mg/dL Critically low 40-60 [facility] Comment on above: Performed By: #### C MP, LIPID #### [facility] Laboratory [address] [address] [address] Bebeto Alvarado Cholesterol in LDL [Mass/Vol] 69.6 mg/dL Normal [facility] Comment on above: Performed By: #### C MP, LIPID #### [facility] Laboratory [address] [place] [address] Dr. Bebeto Alvarado Cholesterol.total/Chol esterol in HDL [Mass ratio] 4.0 {ratio} Normal [facility] Comment on above: Performed By: #### C MP, LIPID #### [facility] Laboratory [address] [place] [address] Dr. Bebeto Alvarado HDL NORMAL > or = 60 mg/dl - LO W CARDIOVASCULAR RISK <40 mg/dl - HIGH CARDIOVASCULAR RISK Normal [facility] Comment on above: Performed By: #### C MP, LIPID #### [facility] Laboratory [address] [place] [address] Dr. Bebeto Alvarado LDL CALC NORMAL SEE BELOW Normal [facility] Comment on above: Result Comment: <100 mg/dl OPTIMAL 100 - 129 mg/dl NEAR OR ABOVE OPTIMAL 130 - 159 mg/dl BORDERLINE HIGH 160 - 189 mg/dl HIGH >190 mg/dl VERY HIGH Performed By: #### C MP, LIPID #### [facility] Laboratory [address] [place] [address] Dr. Bebeto Alvarado Triglyceride [Mass/Vol] 172 mg/dL Critically high <=150 [facility] Comment on above: Performed By: #### C MP, LIPID #### [facility] Laboratory [address] [place] [address] Dr. Bebeto Alvarado VLDL CALC 34.4 mg/dL Normal [facility] Comment on above: Performed By: #### C MP, LIPID #### [facility] Laboratory [address] [address] [address] Bebeto Alvarado PROF 14(COMP METB)on 022 Albumin [Mass/Vol] 3.8 g/dL Normal 3.4-5.0 [facility] Comment on above: Performed By: #### C MP, LIPID #### [facility] Laboratory [address] [place] [address] Dr. Bebeto Alvarado Albumin/Globulin [Mass ratio] 1.1 {ratio} Normal [facility] Comment on above: Performed By: #### C MP, LIPID #### [facility] Laboratory [address] [place] [address] Dr. Bebeto Alvarado ALP [Catalytic activity/Vol] 96 U/L Normal 46-116 [facility] Comment on above: Performed By: #### C MP, LIPID #### [facility] Laboratory [address] [address] [address] Bebeto Alvarado ALT [Catalytic activity/Vol] 25 U/L Normal 14-59 [facility] Comment on above: Performed By: #### C MP, LIPID #### [facility] Laboratory [address] [address] [address] Bebeto Alvarado Anion gap [Moles/Vol] 11.8 mmol/L Normal [facility] Comment on above: Performed By: #### C MP, LIPID #### [facility] Laboratory [address] [place] [address] Dr. Bebeto Alvarado AST [Catalytic activity/Vol] 20 U/L Normal 15-37 [facility] Comment on above: Performed By: #### C MP, LIPID #### [facility] Laboratory [address] [address] [address] Bebeto Alvarado Bilirubin [Mass/Vol] 0.4 mg/dL Normal 0.2-1.0 [facility] Comment on above: Performed By: #### C MP, LIPID #### [facility] Laboratory [address] [address] [address] Bebeto Alvarado Calcium [Mass/Vol] 8.8 mg/dL Normal 8.5-10.1 [facility] Comment on above: Performed By: #### C MP, LIPID #### [facility] Laboratory [address] [address] [address] Bebeto Alvarado Chloride [Moles/Vol] 106 mmol/L Normal 98-107 [facility] Comment on above: Performed By: #### C MP, LIPID #### [facility] Laboratory [address] [address] [address] Bebeto Alvarado CO2 [Moles/Vol] 27.0 mmol/L Normal 21.0-32.0 [facility] Comment on above: Performed By: #### C MP, LIPID #### [facility] Laboratory [address] [address] [address] Bebeto Alvarado Creatinine [Mass/Vol] 0.97 mg/dL Normal 0.55-1.02 [facility] Comment on above: Performed By: #### C MP, LIPID #### [facility] Laboratory [address] [address] [address] Bebeto Alvarado EGFR-AF AZERBAIJANI >60 Normal >=60 [facility] Comment on above: Performed By: #### C MP, LIPID #### [facility] Laboratory [address] [address] [address] Bebeto Alvarado EGFR-NON AF AZERBAIJANI 59 mL/min/1.73m2 Critically low >=60 [facility] Comment on above: Performed By: #### C MP, LIPID #### [facility] Laboratory [address] [address] [address] Bebeto Alvarado Globulin (S) [Mass/Vol] 3.4 g/dL Normal [facility] Comment on above: Performed By: #### C MP, LIPID #### [facility] Laboratory [address] [address] [address] Bebeto Alvarado Glucose [Mass/Vol] 103 mg/dL Normal 74-106 [facility] Comment on above: Performed By: #### C MP, LIPID #### [facility] Laboratory [address] [address] [address] Bebeto Alvarado Potassium [Moles/Vol] 3.8 mmol/L Normal 3.5-5.1 [facility] Comment on above: Performed By: #### C MP, LIPID #### [facility] Laboratory [address] [address] [address] Bebeto Alvarado Protein [Mass/Vol] 7.2 g/dL Normal 6.4-8.2 [facility] Comment on above: Performed By: #### C MP, LIPID #### [facility] Laboratory [address] [address] [address] Bebeto Alvarado Sodium [Moles/Vol] 141 mmol/L Normal 136-145 [facility] Comment on above: Performed By: #### C MP, LIPID #### [facility] Laboratory [address] [address] [address] Bebeto Alvarado Urea nitrogen [Mass/Vol] 11.0 mg/dL Normal 7.0-18.0 [facility] Comment on above: Performed By: #### C MP, LIPID #### [facility] Laboratory [address] [place] [address] Dr. Bebeto Alvarado Urea nitrogen/Creatinine [Mass ratio] 11.3 mg/mg Normal [facility] Comment on above: Performed By: #### C MP, LIPID #### [facility] Laboratory [address] [place] [address] Dr. Bebeto Alvarado URIC ACID SERUMon 11-21-2021 Urate [Mass/Vol] 7.3 mg/dL Critically high 2.6-6.0 [facility] Comment on above: Performed By: #### A 1C #### [facility] Laboratory [address] [place] [address] Dr. Bebeto Alvarado VITAMIN B12on 11-21-2021 Cobalamin (Vitamin B12) [Mass/Vol] 2123.0 pg/mL Critically high 193.0-986.0 [facility] Comment on above: Performed By: #### A 1C #### [facility] Laboratory [address] [place] [address] Dr. Bebeto Alvarado Physician Referralon 022 Physician Referral [id number] Normal [facility] KNEE RIGHT 1 OR 2 VWSon KNEE RIGHT 1 OR 2 VWS [facility] Department of Radiology [address] [place] [address] ======== Patient Name: MICHELLE BE : 1960 Sex: F Age: Race: White Pt. 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 Transcribed by: [email or web address], User Resident: Electronically Signed by: DEBRA DEL CID @ 02/08/2019 11:16 AM Normal [facility] Comment on above: Order Comment: , Mabel ws (X-RAY, KNEE): Radiologic Protocol , Weight Bearing?: N , With or Without Brace/Cast/Collar: With , Views (X-RAY, KNEE): Radiologic Protocol , Weight Bearing?: N , With or Without Brace/Cast/Collar: With , , , Ordering Provider - AHSAN BINGHAM PA-C , KNEE RIGHT 1 OR 2 VWSon KNEE RIGHT 1 OR 2 VWS [facility] Department of Radiology [address] [place] [id number] ======== Patient Name: MICHELLE BE : [...] complications. Electronically signed by:Tomasz Stoll. Transcribed by: [email or web address], User Resident: Electronically Signed by: TOMASZ STOLL @ 12/07/2018 11:14 AM Normal [facility] Comment on above: Order Comment: , Vie ws (X-RAY, KNEE): Radiologic Protocol , Weight Bearing?: N , With or Without Brace/Cast/Collar: With , Views (X-RAY, KNEE): Radiologic Protocol , Weight Bearing?: N , With or Without Brace/Cast/Collar: With , , , Ordering Provider - AHSAN BINGHAM PA-C , KNEE RIGHT 1 OR 2 [facility] KNEE RIGHT 1 OR 2 [facility] Department of Radiology [address] [place] [id number] ======== Patient Name: MICHELLE BE : 1960 Sex: F Age: Race: White Pt. 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 Transcribed by: [email or web address], User Resident: Electronically Signed by: ANUP ELLISON @ 10/06/2018 02:48 PM Normal [facility] Comment on above: Order Comment: , [...] 08-05 KNEE RIGHT 1 OR 2 VWS [facility] Department of Radiology [address] [place] [id number] ======== Patient Name: MICHELLE BE : [...] , Exam: KNEE RIGHT 1 OR 2 [facility] ======== KNEE RIGHT 1 OR 2 VWS [...] effusion Electronically signed by:Anup Ellison. Transcribed by: [email or web address], User Resident: Electronically Signed by: ANUP ELLISON @ 08/26/2018 04:56 PM Normal [facility] Comment on above: Order Comment: , Vie ws (X-RAY, KNEE): Radiologic Protocol , Weight Bearing?: N , With or Without Brace/Cast/Collar: With , Views (X-RAY, KNEE): Radiologic Protocol , Weight Bearing?: N , With or Without Brace/Cast/Collar: With , , , Ordering Provider - AHSAN BINGHAM PA-C , KNEE RIGHT 1 OR 2 [facility] 07-06 KNEE RIGHT 1 OR 2 [facility] Department of Radiology [address] [place] [id number] ======== Patient Name: MICHELLE BE : 1960 Sex: F Age: Race: White Pt. Location: Patient Status: Ordered Date: 07/29/2018 2:10:00 PM Completed Date: 07/29/2018 02:12 PM Requesting Provider: AHSAN BINGHAM Attending Provider: Report Copy To: Signs & Symptoms: S82.001A Unsp fracture of right patella, init for clos fx I10 History: Muse Comments: , , , Ordering Provider - AHSAN BINGHAM PA-C , Exam: KNEE RIGHT 1 OR 2 [facility] ======== KNEE RIGHT 1 OR 2 [facility] 07/29/2018 2:12 PM EDT SIGNS AND SYMPTOMS: [...] compartment Electronically signed by:Anup Ellison. Transcribed by: [email or web address], User Resident: Electronically Signed by: ANUP ELLISON @ 07/29/2018 03:41 PM Normal [facility] Comment on above: Order Comment: , Mabel ws (X-RAY, KNEE): Radiologic Protocol , Weight Bearing?: N , With or Without Brace/Cast/Collar: With , Views (X-RAY, KNEE): Radiologic Protocol , Weight Bearing?: N , With or Without Brace/Cast/Collar: With , , , Ordering Provider - AHSAN BINGHAM PA-C , KNEE RIGHT 3 [facility] 9 KNEE RIGHT 3 [facility] Department of Radiology [address] [place] [phone] ======== Patient Name: MICHELLE BE : 1960 Sex: F Age: Race: White Pt. Location: Patient Status: Ordered Date: 07/15/2018 8:45:00 AM Completed Date: 07/15/2018 08:47 AM Requesting Provider: AHSAN BINGHAM Attending Provider: Report Copy To: Signs & Symptoms: S82.001A Unsp fracture of right patella, init for clos fx I10 History: Muse Comments: , , , Ordering Provider - [...] knee Electronically signed by:Anup Ellison. Transcribed by: [email or web address], User Resident: Electronically Signed by: ANUP ELLISON @ 07/15/2018 03:31 PM Normal [facility] Comment on above: Order Comment: , Vie ws (X-RAY, KNEE): Radiologic Protocol , Weight Bearing?: N , With or Without Brace/Cast/Collar: With , Views (X-RAY, KNEE): Radiologic Protocol , Weight Bearing?: N , With or Without Brace/Cast/Collar: With , , , Ordering Provider - AHSAN BINGHAM PA-C , Operative Reporton 9 Operative Report MR#: [id number] [facility] Pt. Name: Michelle Be Room #: [...] Escalante M.D. I was present for the domínugez and critical portions and I was otherwise immediately available to assist. Date Dict: 07/02/2018/04:59 P/Paolo Duarte MD Date Trans: 07/03/2018 04:28 A/terry [id number] Normal [facility] *ANAEROBIC CULTUREon 019 *ANAEROBIC CULTURE Clinical Report: (D) Specimen/Source: SWAB/RT KNEE Collected: 07/02/2018 13:53 Status: Final Last Updated: 07/07/2018 08:02 CULT RES (Final) No Anaerobes Isolated 5 Days Normal [facility] Comment on above: Performed By: #### 3 0312 #### [address] *WOUND CULTUREon 07-02-2018 *WOUND CULTURE Clinical Report: (D) Specimen/Source: WOUND/INTRAOP SPEC Collected: 07/02/2018 13:53 Status: Final Last Updated: 07/07/2018 10:13 (1) #1 RT KNEE GRAM (Final) Rare Polys No Bacteria Seen CULT RES (Final) No Growth Day 5 Normal [facility] Comment on above: Order Comment: #1 RT KNEE Performed By: #### 3 0343 #### [address] KNEE RIGHT 1 OR 2 VWSon 06-05 KNEE RIGHT 1 OR 2 S [facility] Department of Radiology [address] [place] [id number] ======== Patient Name: MICHELLE BE : [...] Electronically signed by:Debra Del Cid. Transcribed by: [email or web address], User Resident: Electronically Signed by: DEBRA DEL CID @ 07/02/2018 02:03 PM Normal [facility] Comment on above: Order Comment: ORIF VS PERCUTANEOUS FIXATION RIGHT PATELLA POC GLUCOSE LABon 07-02-2018 Glucose [Mass/Vol] 108 mg/dL High 70-100 [facility] Comment on above: Performed By: #### 8 5499 #### [facility] [address] [facility]. [address] APTTon 06-30-2018 aPTT Coag (Bld) [Time] 30.6 s Normal 25.0-35.0 [facility] Comment on above: Result Comment: ALL [...] THIS PURPOSE. Performed By: #### 5 6101, 76457 #### [facility] [address] [place] [address], [facility] BASIC METABOLIC PANELon 06-05 Calcium [Mass/Vol] 9.7 mg/dL Normal 8.6-10.3 [facility] Comment on above: Performed By: #### 0 0071 #### [facility] [address] [place] [address], [place] Chloride [Moles/Vol] 102 mmol/L Normal 98-107 [facility] Comment on above: Performed By: #### 0 0071 #### [facility] [address] [place] [address], [place] CO2 [Moles/Vol] 28 mmol/L Normal 21-31 [facility] Comment on above: Performed By: #### 0 0071 #### [facility] [address] [place] [address], [place] Creatinine [Mass/Vol] 1.20 mg/dL Normal 0.60-1.20 [facility] Comment on above: Performed By: #### 0 0071 #### [facility] [address] [place] [address], [place] GFR/1.73 sq M predicted among blacks MDRD (S/P/Bld) [Vol rate/Area] 56 ml/min/1.73sq m Abnormal >60 [facility] Comment on above: Performed By: #### 0 0071 #### [facility] [address] [place] [address], [place] GFR/1.73 sq M predicted among non-blacks MDRD (S/P/Bld) [Vol rate/Area] 47 ml/min/1.73sq m Abnormal >60 [facility] Comment on above: Performed By: #### 0 0071 #### [facility] [address] [place] [address], [place] Glucose [Mass/Vol] 97 mg/dL Normal 70-100 [facility] Comment on above: Performed By: #### 0 0071 #### [facility] [address] [place] [address], [place] Potassium [Moles/Vol] 4.1 mmol/L Normal 3.5-5.1 [facility] Comment on above: Performed By: #### 0 0071 #### [facility] [address] Sodium [Moles/Vol] 137 mmol/L Normal 136-145 [facility] Comment on above: Performed By: #### 0 0071 #### [facility] [address] Urea nitrogen [Mass/Vol] 19 mg/dL Normal 7-25 [facility] Comment on above: Performed By: #### 0 0071 #### [facility] [address] CBC W/DIFFon 06-30-2018 ABS BASOPHILS 0.1 10*3/uL Normal 0.0-0.2 [facility] Comment on above: Performed By: #### 5 3 #### [facility] [address] ABS IMM GRANS 0.0 10*3/uL Normal 0.0-0.2 [facility] Comment on above: Performed By: #### 5 102 #### [facility] [address] ABS NEUTROPHILS 6.4 10*3/uL Normal 1.6-7.6 [facility] Comment on above: Performed By: #### 5 102 #### [facility] [address] Basophils/100 WBC (Bld) 0.7 % Normal 0.0-1.0 [facility] Comment on above: Performed By: #### 5 102 #### [facility] [address] Eosinophils (Bld) [#/Vol] 0.2 10*3/uL Normal 0.0-0.5 [facility] Comment on above: Performed By: #### 5 0103 #### [facility] [address] [facility] [address], [facility] Eosinophils/100 WBC (Bld) 1.5 % Normal 0.0-6.0 [facility] Comment on above: Performed By: #### 5 0103 #### [facility] [address] [facility] Erythrocyte distribution width (RBC) [Ratio] 14.4 % Normal 11.5-15.0 [facility] Comment on above: Performed By: #### 5 0103 #### [facility] [address] [facility]. [address] Hematocrit (Bld) [Volume fraction] 40.6 % Normal 36.0-45.0 [facility] Comment on above: Performed By: #### 5 0103 #### [facility] [address] [facility]. [address] Hemoglobin (Bld) [Mass/Vol] 13.3 g/dL Normal 12.0-15.0 [facility] Comment on above: Performed By: #### 5 0103 #### [facility] [address] [facility] IMMATURE GRANS 0.4 % Normal 0.0-1.0 [facility] Comment on above: Performed By: #### 5 0103 #### [facility] [address] [facility]. [address] Lymphocytes (Bld) [#/Vol] 2.6 10*3/uL Normal 1.2-4.0 [facility] Comment on above: Performed By: #### 5 3 #### [facility] [address] [place] [address], [facility] Lymphocytes/100 WBC (Bld) 26.5 % Normal 20.0-45.0 [facility] Comment on above: Performed By: #### 5 0103 #### [facility] [address] [place] [address], [facility] MCH (RBC) [Entitic mass] 27.4 pg Normal 27.0-33.0 [facility] Comment on above: Performed By: #### 5 3 #### [facility] [address] [facility] [place] [address], [facility] MCHC (RBC) [Mass/Vol] 32.8 g/dL Normal 32.0-35.0 [facility] Comment on above: Performed By: #### 5 0103 #### [facility] [address] [facility] [place] [address], [facility] MCV (RBC) [Entitic vol] 83.5 fL Normal 82.0-98.0 [facility] Comment on above: Performed By: #### 5 3 #### [facility] [address] [facility] [place] [address], [facility] Monocytes (Bld) [#/Vol] 0.5 10*3/uL Normal 0.1-1.0 [facility] Comment on above: Performed By: #### 5 3 #### [facility] [address] [facility] [place] [address], [facility] MONOS 5.0 % Normal 5.0-12.0 [facility] Comment on above: Performed By: #### 5 3 #### [facility] [address] [place] [address], [facility] Neutrophils/100 WBC (Bld) 65.9 % Normal 40.0-72.0 [facility] Comment on above: Performed By: #### 5 3 #### [facility] [address] [place] [address], [facility] Nucleated RBC/100 WBC (Bld) [Ratio] 0 % Normal 0-0 [facility] Comment on above: Performed By: #### 5 0103 #### [facility] [address] [facility] [place] [address], [facility] PLAT CNT 290 10*3/uL Normal 150-400 [facility] Comment on above: Performed By: #### 5 0103 #### [facility] [address] [facility] [place] [address], [facility] RBC (Bld) [#/Vol] 4.86 10*6/uL Normal 3.80-5.00 [facility] Comment on above: Performed By: #### 5 0103 #### [facility] [address] [facility] [place] [address], [facility] WBC (Bld) [#/Vol] 9.68 10*3/uL Normal 4.00-10.60 [facility] Comment on above: Performed By: #### 5 0103 #### [facility] [address] [place] [address], [facility] KNEE RIGHT 1 OR 2 VWSon 06-05 KNEE RIGHT 1 OR 2 S [facility] Department of Radiology [address] [place] [id number] ======== Patient Name: MICHELLE BE : 1960 Sex: F Age: Race: White Pt. 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, 7thD I10 History: Muse Comments: , Views (X-RAY, KNEE): Radiologic Protocol [...] Electronically signed by:Debra Del Cid. Transcribed by: [email or web address], User Resident: Electronically Signed by: DEBRA DEL CID @ 06/30/2018 11:52 AM Normal [facility] Comment on above: Order Comment: , Mabel ws (X-RAY, KNEE): Radiologic Protocol , Weight Bearing?: N , With or Without Brace/Cast/Collar: With , Views (X-RAY, KNEE): Radiologic Protocol , Weight Bearing?: N , With or Without Brace/Cast/Collar: With , , , Ordering Provider - AHSAN BINGHAM PA-C , PROTHROMBIN TIMEon 9 INR Coag (PPP) [Relative time] 0.98 {INR} Normal 0.91-1.16 [facility] Comment on above: Result Comment: [facility] P RECOMMENDED INR FOR WARFARIN THERAPY [...] CHEST 1995;108:231S-246S. Performed By: #### 5 [id number], [id number] #### [address] PT Coag (PPP) [Time] 13.0 s Normal 12.3-14.8 [facility] Comment on above: Result Comment: ALL RESULTS MUST BE INTERPRETED WITH RESPECT TO BLOOD DRAWING ARTIFACT OR DILUTION ERROR OF ANTICOAGULANT AT THE TIME OF SAMPLING. Performed By: #### 5 6101, [id number] #### [address] KNEE RIGHT 3 VWSon 9 KNEE RIGHT 3 VWS [facility] Department of Radiology [address] [place] [id number] ======== Patient Name: MICHELLE BE : 1960 Sex: F Age: Race: White Pt. Location: 84 Patient Status: O Ordered Date: 06/15/2018 1:35:00 PM Completed Date: 06/15/2018 01:34 PM Requesting Provider: AMPARO ZHANG Attending Provider: AMPARO ZHANG Report Copy To: ADELAIDA CARRION Signs & Symptoms: M17.11 Unilateral primary osteoarthritis, right knee I10 History: Muse Comments: , Weight Bearing?: Y , Weight Bearing?: Y , , , Ordering Provider - AMPARO ZHANG PA-C , Exam: KNEE RIGHT 3 [facility] ======== KNEE RIGHT 3 S 06/15/2018 1:34 [...] effusion Electronically signed by:Anup Ellison. Transcribed by: [email or web address], User Resident: Electronically Signed by: ANUP ELLISON @ 06/15/2018 03:50 PM Normal [facility] Comment on above: Order Comment: , Isaiah ght Bearing?: Y , Weight Bearing?: Y , , , Ordering Provider - AMPARO ZHANG PA-C , Vital Signs Date Time Vital Sign Value Performing Clinician Facility 05-18-2023 16:30-0500 Body height 162.6 cm Adelaida Sheyla PULLER MACHINE Work Phone: [facility] 05-18-2023 16:30-0500 Body mass index (BMI) [Ratio] 47.89 kg/m2 Adelaida Sheyla PULLER MACHINE Work Phone: [facility] 05-18-2023 16:30-0500 Body temperature 97.3 [degF] Adelaida Sheyla PULLER MACHINE Work Phone: [facility] 05-18-2023 16:30-0500 Body weight 126.55 kg Adelaida Sheyla PULLER MACHINE Work Phone: [facility] 05-18-2023 16:30-0500 Diastolic blood pressure 80 mm[Hg] Adelaida Sheyla PULLER MACHINE Work Phone: [facility] 05-18-2023 16:30-0500 Heart rate 76 /min Adelaida Sheyla PULLER MACHINE Work Phone: [facility] 05-18-2023 16:30-0500 Respiratory rate 19 /min Adelaida Sheyla PULLER MACHINE Work Phone: [facility] 05-18-2023 16:30-0500 SaO2% (BldA) [Mass fraction] 97 % Adelaiad Carrion PULLER MACHINE Work Phone: [facility] 02-12-2024 16:30-0500 Systolic blood pressure 134 mm[Hg] Adelaida Aichholz PULLER MACHINE Work Phone: [facility] 03-23-2023 12:10-0500 Diastolic blood pressure 98 mm[Hg] Adelaida Aichholz Work Phone: [facility] 03-23-2023 12:10-0500 Heart rate 76 /min Adelaida Aichholz Work Phone: [facility] 03-23-2023 12:10-0500 Respiratory rate 18 /min Adelaida Aichholz Work Phone: [facility] 03-23-2023 12:10-0500 SaO2% (BldA) [Mass fraction] 99 % Adelaida Aichholz Work Phone: [facility] 03-23-2023 12:10-0500 Systolic blood pressure 162 mm[Hg] Adelaida Aichholz Work Phone: [facility] 03-23-2023 10:53-0500 Body height 162.56 cm Adelaida Aichholz Work Phone: [facility] 03-23-2023 10:53-0500 Body weight 125.64 kg Adelaida Aichholz Work Phone: [facility] 12-19-2022 14:55-0400 Body height 162.56 cm Rosemary Kirkland Other [employer] Other 12-19-2022 14:55-0400 Body mass index (BMI) [Ratio] 47.85 kg/m2 Rosemary Kirkland Other [employer] Other 12-19-2022 14:55-0400 Body temperature 97.8 [degF] Rosemary Kirkland Other [employer] Other 12-19-2022 14:55-0400 Body weight 126.46 kg Rosemary Kirkland Other [facility] [employer] Other 12-19-2022 14:55-0400 Respiratory rate 20 /min Rosemary Vernonmond Other [employer] Other 12-19-2022 14:55-0400 SaO2% (BldA) [Mass fraction] 95 % Rosemary Kirkland Other [facility] [employer] Other 11-20-2022 13:12-0400 Body temperature 97.7 [degF] Adelaida Aichholz Work Phone: [facility] 11-20-2022 13:12-0400 SaO2% (BldA) [Mass fraction] 96 % Adelaida Aichholz Work Phone: [facility] 11-20-2022 07:44-0400 Diastolic blood pressure 90 mm[Hg] Adelaida Aichholz Work Phone: [facility] 11-20-2022 07:44-0400 Heart rate 103 /min Adelaida Aichholz Work Phone: [facility] 11-20-2022 07:44-0400 Systolic blood pressure 152 mm[Hg] Adelaida Aichholz Work Phone: [facility] 11-19-2022 20:00-0400 Respiratory rate 18 /min Adelaida Aichholz Work Phone: [facility] 11-18-2022 15:18-0400 Body height 162.56 cm Adelaida Aichholz Work Phone: [facility] 11-17-2022 09:00-0400 Body weight 122.92 kg Adelaida Aichholz Work Phone: [facility] Encounters Encounter Date Encounter Type Care Provider Facility Start: 07-07-2023 End: 07-07-2023 ambulatory ADELAIDA AICHHOLZ Not Available Start: 05-22-2023 End: 05-22-2023 ambulatory ASHLEIGH HINES Not Available Start: 05-21-2023 Refill Adelaida Carrion PULLER MACHINE Work Phone: [facility] Comment on above: Acute cystitis with hematuria (Primary Dx) Start: 05-18-2023 End: 05-18-2023 ambulatory ADELAIDA CARRION Not Available Start: 05-18-2023 End: 05-18-2023 Office outpatient visit 25 minutes Adelaida Carrion PULLER MACHINE Work Phone: [facility] Comment on above: Encounter for annual wellness visit (AWV) in Medicare patient (Primary Dx); OSMANY (obstructive sleep apnea); Chronic pain disorder; Gastroesophageal reflux disease, unspecified whether esophagitis present; Overactive bladder; Lower extremity edema; Pre-diabetes; Morbid obesity (CMS/HCC); Yeast infection of the skin; Tobacco dependence; Mood disorder (CMS/[facility]); Primary hypertension ([facility]); Left hip pain; Open wound of anterior abdominal wall, initial encounter Start: 05-18-2023 Bamboo flowsheet Adelaida Carrion PULLER MACHINE Work Phone: [facility] Start: 05-18-2023 Bamboo flowsheet Adelaida Carrion PULLER MACHINE Work Phone: [facility] Start: 05-18-2023 End: 05-18-2023 Patient encounter procedure Adelaida Carrion PULLER MACHINE Work Phone: [facility] Start: 04-30-2023 ambulatory Eduardo Acevedo acility:[facility] Start: 03-25-2023 End: 03-25-2023 ambulatory ADELAIDA SHEYLA Not Available Start: 03-23-2023 End: 03-23-2023 ambulatory Jace Graham Facility:[facility] Start: 03-23-2023 End: 03-23-2023 Admission to same day surgery center Adelaida Carrion Work Phone: [facility] Work Phone: Start: 03-23-2023 End: 03-23-2023 ambulatory Adelaida Carrion Work Phone: [facility] Work Phone: Start: 03-11-2023 End: 03-11-2023 ambulatory KALLI INTERIANOLENKA Not Available Start: 02-20-2023 End: 02-20-2023 ambulatory ASHLEIGH HINES Not Available Start: 02-12-2023 End: 02-12-2023 ambulatory Jace Graham Other [employer] Other Start: 02-12-2023 Telephone encounter Jace Haney [employer] Start: 12-19-2022 End: 12-19-2022 ambulatory Rosemary Kirkland Other [employer] Other Start: 12-19-2022 Office outpatient ne w 10 minutes Rosemary Kirkland [facility] [address] Start: 11-17-2022 End: 11-20-2022 Evaluation and management of inpatient Eduardo Aleshia Facility:[facility] Start: 11-17-2022 End: 11-20-2022 Evaluation and management of inpatient Adelaida Merryholz Work Phone: [facility] Work Phone: Start: 09-04-2022 ambulatory ARIAN Banegas Facili ty:[facility]1 Start: 08-26-2022 ambulatory NARENDRANATH LAKSHMIPATHY . Facility:[facility] Start: 08-08-2022 End: 08-09-2022 ambulatory SPECIAL EDUCATION SUPERVISOR ADELAIDA AICHHOLZ Facility:[facility] Start: 07-25-2022 End: 07-26-2022 ambulatory SPECIAL EDUCATION SUPERVISOR ADELAIDA AICHHOLZ Facility:[facility] Start: 07-15-2022 End: 07-15-2022 [...] Start: 01-01-2022 End: 01-02-2022 [facility]ulatory [facility] Start: 12-16-2021 End: 12-16-2021 ambulatory LIVIER [...] End: 07-03-2018 Patient encounter procedure SUKI ESCALANTE Facility:[facility] Procedures Date Procedure Procedure Detail Performing Clinician Start: 03-23-2023 Screening colonoscopy L oneal Carrion Work Phone: Start: 03-23-2023 Colonoscopy Adelaida Jayden analily PULLER MACHINE Work Phone: Start: 09-15-2022 Mammography Adelaida Jayden ramos PULLER MACHINE Work Phone: Start: 08-28-2022 Microscopic observat ion [Identifier] in Cervix by Cyto stain Adelaida Carrion PULLER MACHINE Work Phone: Start: 07-02-2018 ANESTH KNEE AREA SURGERY CHAPARRITA HENDRICKS Start: 07-02-2018 REMOVAL OF SUPPORT IMPLANT SUKI EBRAHEIM Start: 07-02-2018 TREAT KNEECAP FRACTURE SUKI EBRAHEIM Plan of Treatment Date Care Activity Detail Author Start: 03-23-2033 Screening for malignant neoplasm of colon [facility] Start: 08-28-2025 Screening for malignant neoplasm of cervix [facility] Start: 05-18-2024 Medicare Annual Wellness (AWV) Medicare Annual Wellness (AWV) [facility] Start: 09-16-2023 Screening for malignant neoplasm of breast Mammogram [facility] Start: 08-17-2023 End: 08-17-2023 Patient encounter procedure 08/17/2023 9:20 AM EDT Office Visit [facility] [address] [place] [address] Adelaida Carrion NP [address] [place] [address] [facility] Start: 05-22-2023 End: 05-22-2023 Patient encounter procedure 05/22/2023 8:45 AM EST Office Visit [facility] [address] [facility] [address] [place] [address] Ashleigh Hines PA [address] [email or web address] [address] [place] [address] [facility] Start: 05-18-2023 End: 05-18-2023 Patient encounter procedure 05/18/2023 4:30 PM EST [facility] [address] [place] [address] Adelaida Carrion NP [address] [place] [address] Arrived [facility] Comment on above: Arrived Start: 05-18-2023 End: 05-18-2024 XR Hip - left 3 Views XR hip left 2 or 3 views Imaging Routine Left hip pain Expected: 05/18/2023 (Approximate), Expires: 05/18/2024 [facility] Work Phone: Comment on above: Expected: 05/18/2023 (Approximate), Expires: 05/18/2024 Start: 03-23-2023 [facility] Start: 11-20-2022 [facility] Start: 11-18-2022 Referral to clinical debeader [facility] Start: 11-17-2022 Hospital admission [facility] Start: 11-17-2022 [facility] Start: 12-06-1991 Screening for malignant neoplasm of cervix HPV/Cotest [facility] Start: 1960 Medicare Annual Wellness (AWV) Medicare Annual Wellness (AWV) [facility] Start: 1960 Screening for malignant neoplasm of colon [facility] Patient Education [facility] Work Phone: Patient referral [facility] Work Phone: [facility] Immunizations Immunization Date Immunization Notes Care Provider Fa [facility] 02-13-2023 influenza, injectabl e, quadrivalent, preservative free Adelaida Carrion PULLER MACHINE Work Phone: [facility] 02-13-2023 SARS-COV-2 (COVID-19 ) vaccine, mRNA, spike protein, LNP, PF, 50 mcg/0.5 mL Adelaida Carrion PULLER MACHINE Work Phone: [facility] 02-19-2022 diphtheria, tetanus toxoids and pertussis vaccine Adelaida Carrion PULLER MACHINE Work Phone: [facility] 03-02-2021 Moderna SARS-CoV-2 Vaccination Adelaida Carrion PULLER MACHINE Work Phone: [facility] 08-24-2020 Moderna SARS-CoV-2 Vaccination Adelaida Carrion PULLER MACHINE Work Phone: [facility] 07-27-2020 Moderna SARS-CoV-2 Vaccination Adelaida Carrion PULLER MACHINE Work Phone: [facility] 05-28-2018 influenza, injectabl e, quadrivalent, preservative free Adelaida Carrion Work Phone: [facility] Payers Date Payer Category Payer Medicare [id number] 2022 Private Health Insurance [id number] 2022 Self-pay [id number] 2022 Medicare [employer] MEDICARE REPLACEMENT [id number] 2022-Present [address] [address] [place] [address] [id number] 2008 Unknown [id number] 1960 Unknown [id number] 2.16.840.1.654546.3.579.2 .647 1960 Unknown [id number] 2.16.840.1.554373.3.579.2 .593 1960 Unknown [id number] 2.16.840.1.052708.3.579.2 .593 1960 Unknown [id number] 2.16.840.1.472964.3.579.2 .593 1960 Unknown [id number] 2.16.840.1.540659.3.579.2 .593 1961 Unknown [id number] 2.16.840.1.587174.3.579.2 .593 1961 Unknown [id number] 2.16.840.1.825152.3.579.2 .593 1961 Unknown [id number] 2.16.840.1.010971.3.579.2 .593 1961 Unknown [id number] 2.16.840.1.033496.3.579.2 .593 1961 Unknown [id number] 2.16.840.1.028786.3.579.2 .593 1961 Unknown [id number] 2.16.840.1.074720.3.579.2 .593 1961 Unknown [id number] 2.16.840.1.081641.3.579.2 .593 1961 Unknown [id number] 2.16.840.1.601644.3.579.2 .593 1961 Unknown [id number] 2.16.840.1.774377.3.579.2 .593 1961 Unknown [id number] 2.16.840.1.567380.3.579.2 .593 1961 Unknown [id number] 2.16.840.1.183313.3.579.2 .593 1961 Unknown [id number] 2.16.840.1.864249.3.579.2 .593 1961 Unknown [id number] 2.16.840.1.398758.3.579.2 .593 1961 Unknown [id number] 2.16.840.1.465601.3.579.2 .593 1961 Unknown [id number] 2.16.840.1.551155.3.579.2 .593 1961 Unknown [id number] 2.16.840.1.724919.3.579.2 .593 1961 Unknown [id number] 2.16.840.1.025998.3.579.2 .593 1961 Unknown [id number] 2.16.840.1.794301.3.579.2 .593 1961 Unknown [id number] 2.16.840.1.774571.3.579.2 .593 1961 Unknown [id number] 2.16.840.1.625691.3.579.2 .593 1961 Unknown [id number] 2.16.840.1.255489.3.579.2 .1259 1961 Unknown [id number] 2.16.840.1.221041.3.579.2 .1259 1961 Unknown [id number] 2.16.840.1.023076.3.579.2 .1259 1961 Unknown [id number] 2.16.840.1.672324.3.579.2 .1259 1961 Unknown [id number] 2.16.840.1.216645.3.579.2 .1259 1961 Unknown [id number] 2.16.840.1.382329.3.579.2 .1259 1959 Medicare [id number] 1959 Unknown [id number] Unknown [id number] 2.16.840.1.711193.3.579.2 .531 Unknown [id number] 2.16.840.1.796858.3.579.2 .531 Unknown [id number] 2.16.840.1.112645.3.579.2 .531 Social History Date Type Detail Facility Start: 11-18-2022 End: 02-09-2023 Tobacco smoking status COIS Ex-smoker (finding) [facility] Start: 1960 Sex Assigned At Female [facility] Start: 03-25-2023 End: 05-18-2023 Sex Assigned At [...] Facility 11-20-2022 Functional status Patient at Baseline [facility] Work Phone: Mental Status Date Assessment Result Facility 11-20-2022 Cognitive function Cognitive Sta tus Patient is Progressing Toward Baseline [facility] Work Phone: Clinical Notes 10-03-2021 to 05-18-2023 Adelaida Carrion NP - 05/18/2023 5:49 PM Mynor Carrion NP - 05/18/2023 5:47 PM Mynor Carrion, BRIANA - 05/18/2023 5:20 PM Mynor Carrion NP [...] (BARIATRIC MULTIVITAMINS/IRON PO) Bariatric Multivitamins/Iron nystatin (Mycostatin) 168178 UNIT/GM powder 1 application , Topical, 2 [...] Degenerative cervical disc Degenerative lumbar disc Depression ([facility]) 05/18/2023 Diastolic dysfunction Dizziness 05/18/2023 Dysphagia Fibromyalgia Gastrocnemius equinus GERD (gastroesophageal reflux disease) Heart murmur Hematoma of right breast Hemiparesis, right ([facility]/HCC) Hemorrhoid int/external hemorrhoids Hiatal hernia Iron deficiency Left foot pain 03/25/2023 Lower extremity edema Mood disorder ([facility]) mixed mood disorder OSMANY (obstructive sleep apnea) Osteoporosis ([facility]) Overactive bladder Pre-diabetes Primary hypertension ([facility]) 03/25/2023 PTSD (post-traumatic stress disorder) ([facility]) Restless leg Right knee pain Right sided weakness S/P bariatric surgery Shingles Slurred speech Stroke ([facility]) 2018 Tenosynovitis, de Quervain Thoracic back [...] yearly and prn documented in this encounter [facility] 03-23-2023 Procedure note [facility] 12-19-2022 Evaluation note Encounter Date Diagnosis Assessment Notes Dec, Skin candidiasis (ICD-10 - B37.2) Drink plenty fluids, get plenty of rest. Continue home medications as prescribed. Take the Diflucan as prescribed until gone. Follow-up with your family physician if no improvement in 2 to 3 days [employer] Other 08-17-2023 Discharge summary Author Eduardo bautista [facility] November 20, 2022 6:38am Note Date/Time November 20, 2022 6: 38am [facility] [address] [place] [address] Discharge Summary Signed Patient: Michelle Be MR#: [id number] : 1960 Acct:[id number] Age/Sex: 61 / F Adm Date: 3 Loc: Room: [address] [place] [address]: Gaudencio Monk MD Copies to: MD Adelaida Álvarez, PULLER MACHINE-C~ Providers Date of Discharge: 11/20/22 Discharging Provider: [...] She reports moving to [place] from [place] in 2011 and was then diagnosed with bipolar disorder at [facility] in [place], where she still follows with a therapist.? Shereports that she has been with 7 therapists in the last 9 years and is currentlycompleting EMDR with her current therapist. Past hospitalizations: Her most recent hospitalization was 5 years ago [facility] in [place] for the same feeling she is experiencing [...] her , son and his girlfriend, and amanuelrandson.? Reports a situation in which they are attempting to seek custody of the grandson from the mother of the child.? She reports not feeling safe at homewith herself but feels safe when her family is home. Employment: Patient has not worked since 2010 due to her fibromyalgia.? [facility]. Relationships: Reports having people [...] self or stop treatment, but to call [employer], 911 or come to the nearest emergency [...] Tablet 1 tab PO QID Follow Up: [facility] [Outside] 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 (insert date/time [...] signed by Eduardo Monk MD> 11/20/22 0638 [facility] Work Phone: 1(486) 977-946708-16-2023 Progress note Author Eduardo bautista [facility] November 19, 2022 6:25am Note Date/Time November 19, 2022 6: 25am [facility] [address] [place] [address] Psychiatry Progress Note Signed Patient: Michelle Be MR#: [id number] : 1960 Acct:[id number] Age/Sex: 61 / F Adm Date: 3 Loc: Room: [address] [place] [address] Type : ADM IN Attending Dr: Gaudencio [...] By: <Electronically signed by Eduardo Monk MD> 11/19/2225 [facility] Work Phone: 1(482) 171-262408-15-2023 Progress note Author Eduardo bautista [facility] November 18, 2022 11:01am Note Date/Time November 18, 2022 10 :11am [facility] [address] [place] [address] Psychiatry Progress Note Signed Patient: Michelle Be MR#: [id number] : 1960 Acct:[id number] Age/Sex: 61 / F Adm Date: 3 Loc: 1S Room: 0N8763-4 Type : ADM IN Attending Dr: Gaudencio [...] by requesting a schedule 2 referring to [place] for pain management specifically every 4-6 hours [...] 100 Room Air 11/18/22 06:56 11/18/22 06:56 08/15/23 06:56 11/18/22 06:56 11/18/22 06:56 11/18/22 08:49 [...] signed by MD DA Rangel> 11/18/22 1011 [facility] Work Phone: 1(280) 535-558008-14-2023 History and physical note Author Eduardo bautista [facility] November 17, 2022 12:48pm Note Date/Time November 17, 2022 12 :48pm [facility] [address] [place] [address] Psychiatry H&P Signed Patient: Michelle Be MR#: [id number] : 1960 Acct:[id number] Age/Sex: 61 / F Adm Date: 3 Loc: Room: [address] [place] [address] Type: ADM IN Attending Dr: Gaudencio Monk MD Copies to: EduardoMD Adelaida Green NP-Keiry~ Date of Service: 11/17/2022 HPI History of [...] She reports moving to [place] from [place] in 2011 and was then diagnosed with bipolar disorder at [facility] in [place], where she still follows with a therapist. Shereports that she has been with 7 therapists in the last 9 years and is currentlycompleting EMDR with her current therapist. Past hospitalizations: Her most recent hospitalization was 5 years ago [facility] in [place] for the same feeling she is experiencing [...] equal bilaterally. CN XII: Tongue protrusion midline [facility] Medical History (Updated 11/17/22 @ 10:42 by [...] <Electronically signed by Eduardo Monk MD> 11/17/22 124 [facility] Work Phone: 1(960) 973-765403-23-2023 NoteCONSULTATION CONSULTATION DATE: 06/26/2022 To: Nurse Sheyla [...] L5-S1 facet joint injection under fluoroscopic guidance.[facility] [id number] NotePROCEDURE: XR SHOULDER RT 2V or > [...] Electronically authenticated by: KINGSLEY CLEMENTS Date: 2022-05-09 09:21[facility]01-23-2023 NotePROCEDURE: XR WRIST LT MIN 3 [...] authenticated by: KINGSLEY CLEMENTS Date: 2022-04-28 13:31[facility] [id number] NoteCONSULTATION CONSULTATION DATE: 04/03/2022 HISTORY OF PRESENT [...] her in three months, unless otherwise indicated.[facility] [id number] NoteCONSULTATION CONSULTATION DATE: 01/02/2022 This is a [...] prescription was sent by Dr. Macedo to [facility] in [place] for the compounded cream. She needs a [...] in three months' time unless otherwise indicated.[facility] [id number] NotePROCEDURE: XR ANKLE RT MIN 3 VIEWS, [...] Electronically authenticated by: KINGSLEY CLEMENTS Date: 2022-01-01 13:11[facility]09-28-2022 NotePROCEDURE: XR ANKLE RT MIN 3 [...] Electronically authenticated by: KINGSLEY CLEMENTS Date: 2022-01-01 13:11[facility]08-18-2022 NotePROCEDURE: XR FOOT RT MIN 3 VIEWS HISTORY: Pain in right foot , chronic COMPARISON: XR foot right 2020 FINDINGS: BONES:No fracture, dislocation, bone lesion. Small calcaneal degenerative enthesophytes. SOFT TISSUES:No visible soft tissue swelling. EFFUSION:None visible. OTHER: Negative. IMPRESSION: 1. No acute bone abnormality or significant degenerative joint disease. Electronically authenticated by: KINGSLEY CLEMENTS Date: 2021-11-21 16:13[facility]06-30-2022 NoteCONSULTATION CONSULTATION DATE: 10/03/2021 This is [...] patient agrees with the plan of care. [facility] Signed and Approved by: ZELDA MCDANIEL . 10/10/2021 10:22[facility]00[facility] Diagnosis Onset Date Resolution Status Allergies acute Bipolar 2 disorder acute Hypertension acute Morbid obesity with BMI of 45.0-49.9, adult acute OSMANY (obstructive sleep apnea) acute Restless legs syndrome acute [facility] Work Phone: Evaluation noteNo InformationNort [employer] Other Evaluation noteNo assessment information available [facility] Work Phone: Evaluation note* Diagnosis Encounter for annual wellness visit (AWV) in Medicare patient- Primary OSMANY (obstructive sleep apnea) Obstructive sleep apnea (adult) (pediatric) Chronic pain disorder Chronic pain syndrome Gastroesophageal reflux disease, unspecified whether esophagitis present Overactive bladder Hypertonicity of bladder Lower extremity edema Edema Pre-diabetes Other abnormal glucose Morbid obesity ([facility]) Morbid obesity Yeast infection of the skin [...] HealthcareHistory and physical note Author Jace Graham [facility] March 23, 2023 11:21am Note Date/Time March 23, 2023 11:21am [facility] [address] [place] [address] Gastroenterology H&P Signed Patient: Michelle Be MR#: [id number] : 1960 Acct:[id number] Age/Sex: 62 / F Adm Date: 3 Loc: Room: Type: [facility] Attending Dr: Jace Graham [...] Graham MD Documented By: Jace Graham MD 03/23/231120 Signed By: <Electronically signed by Jace Graham MD> 03/23/23 1121 [facility] Work Phone: History general Narrative - Reported* [...] see above surg Hospitalization History stroke 2018 [facility] Other Hospital Discharge instructions Additional Instructions Regular Diet No Activity [facility]ions[facility] Work Phone: Hospital Discharge instructions Additional Instructions [...] years. -Follow up with PCP. -Office number [phone].[facility] Work Phone: Summary Purpose Family History No [...] section and content) DATE CREATED AUTHOR 02/18/2019 [facility] DATE CREATED AUTHOR AUTHOR'S ORGANIZ ATION 11/15/2021 [facility] DATE CREATED AUTHOR AUTHOR'S ORGANIZ ATION 08/16/2022 [facility] DATE CREATED AUTHOR AUTHOR'S ORGANIZ ATION 06/28/2023 [facility] DATE CREATED AUTHOR AUTHOR'S ORGANIZ ATION 07/08/2023 [facility] Care Teams (unrecognized sec tion and content) Team Status: Active Member Role Status Dates Adelaida Carrion Primary Care Provider Active Team Status: Inactive Member Role Status Dates Adelaida Carrion Primary Care Provider Active Gaudencio Monk MD Admit Provider, Attending Pr ovider Active Andreina Vieira RN Other Provider Active Camilla Pina RN Other Provider Active Ruchi Hurtado , RN Other Provider Active Lisa Crooks , RN Other Provider Active Tash Mejias , RN Other Provider Active Elzbieta Kim , JOHANN Other Provider Active Walker Pringle MD Other Provider Active Adelaida Marsh , LIGHT RAIL VEHICLE OPERATOR Other Provider Active Jessica Murillo , DO Other Provider Active Obdulio Bragg MD Other Provider Active Joon Cristina , DO Other Provider Active Torin Robert MD Other Provider Active Dawn Barrera MD Other Provider Active Mari Soler , ANP- Other Provider Active Sofi Almanzar MD Other Provider Active Sharad Gallegos MD Other Provider Active Aby Cain MD Other Provider Active Hillary Carrera MD Other Provider Active Julio César Mckeon , DO Other Provider Active Valentine Mak MD Other Provider Active Raymond Strong MD Other Provider Active Joellen Le , PULLER MACHINE-C Other Provider Active Severo Yancey MD Other Provider Active Rao Webbre MD Other Provider Active Yuan Shi MD Other Provider Active Delroy Ramirez MD Other Provider Active Berta Comer , DO Other Provider Active Negrito Ruiz , DO Other Provider Active Lacho Singh , DO Other Provider Active Rachana Hobson LIGHT RAIL VEHICLE OPERATOR Other Provider Active Rob [place] , DO Other Provider Active Jeff Alvarez MD Other Provider Active Urmila Rinaldi , LIGHT RAIL VEHICLE OPERATOR Other Provider Active Bina Mayberry , LIGHT RAIL VEHICLE OPERATOR Other Provider Active Mir Bradford MD Other Provider Active Te Da Silva MD Other Provider Active Debra Landaverde , JOHANN Other Provider Active Team Status: Inactive Member Role Status Dates Adelaida Carrion Primary Care Provider Active Jace Graham MD Attending Provider Active Advertising Project Manager Relationship Specialty Start Date End Date José Luis Roberts MD [address] [place] [phone] PCP - General Family Medicine 05/18/23 Adelaida Carrion NP [address] [place] [phone] Referring Physician Nurse Practitioner 10/14/22 [employer] Project Manager Relationship Specialty Start Date End Date José Luis Roberts MD [address] [place] [phone] PCP - General Family Medicine 05/18/23 Adelaida Carrion NP [address] [place] [phone] Referring Physician Nurse Practitioner 10/14/22 Advertising Project Manager Relationship Specialty Start Date End Date José Luis Roberts MD [address] [place] [phone] PCP - General Family Medicine 05/18/23 Adelaida Carrion NP [address] [place] [phone] Referring Physician Nurse Practitioner 10/14/22 REASON FOR [...] BE BASED ON THE PRIMARY CLINICAL RECORDS. [employer] [facility]. provides no warranty or guarantee of the accuracy or completeness of information in this document.
[2023-07-11 13:22] LABS: Influenza Virus A Antigen Positive; Influenza Virus B Antigen Negative; Internal Control Within Normal Limits; SARS-CoV-2 Ag NEGATIVE (NEGATIVE)
== END 2023-07-11 14:18 | disposition left against medical advice (07) ==
LOC: ER 12:34
PROVIDERS: Emergency Provider Emergency Medicine Emergency Medical Services; PCP Psychiatry & Neurology Neurology
DX: R05.9 Cough, unspecified (principal); Z53.21 Procedure and treatment not carried out due to patient leaving prior to being seen by health care provider
CPT/HCPCS: 36415; 87804; 87811

== ENCOUNTER 2023-07-11 21:59 | Emergency (ER) | payer MEDICARE, SELFPAY ==
--- OUTSIDE RECORDS SUMMARY | 2023-07-11 22:04 | XMS_ITS | CCD ---
Author Organization [facility] Care Team Providers Care Special Education Tutor Name Role Phone EBHEIM, SUKI Admitting Unavailable EBRAHEIM, SUKI Attending Unavailable AICHHOLZ, ADELAIDA Referring Unavailable AICHHOLZ, ADELAIDA Primary Care Unavailable IN Procedure Practitioner Unavailab HELADIO JacobIL Surgeon Unavailable IN Procedure Practitioner Unavailab CHAPARRITA Goncalves Surgeon Unavailable BRIDGETTE MACEDO Admitting Unavailable BRIDGETTE MACEDO Attending Unavailable AICHHOLZ, ENGLISH AS A SECOND LANGUAGE INSTRUCTOR ADELAIDA Primary Care Unavailable ZIMMER ., DR FINA Iverson Admitting Unavailable ZIMMER ., DR FINA Iverson Attending Unavailable AICHHOLZ, ENGLISH AS A SECOND LANGUAGE INSTRUCTOR ADELAIDA Primary Care Unavailable MCDANIEL ., ZELDA Consulting Unavailable LAKSHMIPATHY ., NARENDRANATH Consulting Paula vailable LAKSHMIPATHY ., NARENDRANATH Admitting Paula vailable LAKSHMIPATHY ., NARJEANARANATH Attending Paula vailable AICHHOLZ, ENGLISH AS A SECOND LANGUAGE INSTRUCTOR ADELAIDA Primary Care Unavailable LAKSHMIPATHY ., NARENDRANATH Consulting Paula vailable AICHHOLZ, ENGLISH AS A SECOND LANGUAGE INSTRUCTOR ADELAIDA Primary Care Unavailable MARKER ., DR CHAUDHRY Admitting Unavailable MARKER ., DR CHAUDHRY Attending Unavailable MARKER ., DR CHAUDHRY Consulting Unavailable AICHHOLZ, ENGLISH AS A SECOND LANGUAGE INSTRUCTOR ADELAIDA Admitting Unavailable AICHHOLZ, ENGLISH AS A SECOND LANGUAGE INSTRUCTOR ADELAIDA Attending Unavailable AICHHOLZ, ENGLISH AS A SECOND LANGUAGE INSTRUCTOR ADELAIDA Primary Care Unavailable ZIMMER ., DR FINA Iverson Admitting Unavailable ZIMMER ., DR FINA Iverson Attending Unavailable AICHHOLZ, ENGLISH AS A SECOND LANGUAGE INSTRUCTOR ADELAIDA Primary Care Unavailable MCDANIEL ., ZELDA Consulting Unavailable ZIMMER ., DR FINA vIerson Admitting Unavailable ZIMMER ., DR FINA Iverson Attending Unavailable AICHHOLZ, ENGLISH AS A SECOND LANGUAGE INSTRUCTOR ADELAIDA Primary Care Unavailable MCDANIEL ., ZELDA Consulting Unavailable AICHHOLZ, ENGLISH AS A SECOND LANGUAGE INSTRUCTOR ADELAIDA Admitting Unavailable AICHHOLZ, ENGLISH AS A SECOND LANGUAGE INSTRUCTOR ADELAIDA Attending Unavailable AICHHOLZ, ENGLISH AS A SECOND LANGUAGE INSTRUCTOR ADELAIDA Primary Care Unavailable AICHHOLZ, ENGLISH AS A SECOND LANGUAGE INSTRUCTOR ADELAIDA Consulting Unavailable AICHHOLZ, ENGLISH AS A SECOND LANGUAGE INSTRUCTOR ADELAIDA Admitting Unavailable AICHHOLZ, ENGLISH AS A SECOND LANGUAGE INSTRUCTOR ADELAIDA Attending Unavailable AICHHOLZ, ENGLISH AS A SECOND LANGUAGE INSTRUCTOR ADELAIDA Primary Care Unavailable AICHHOLZ, ENGLISH AS A SECOND LANGUAGE INSTRUCTOR ADELAIDA Consulting Unavailable MISC, DR COTE Admitting Unavailable MISC, DR COTE Attending Unavailable AICHHOLZ, ENGLISH AS A SECOND LANGUAGE INSTRUCTOR ADELAIDA Primary Care Unavailable AICHHOLZ, ENGLISH AS A SECOND LANGUAGE INSTRUCTOR ADELAIDA Consulting Unavailable PRITESHC, DR COTE Consulting Unavailable STARR, DR KINGSLEY Atkins Consulting Unavailable ZIMMER ., DR FINA Iverson Admitting Unavailable ZIMMER ., DR FINA Iverson Attending Unavailable AICHHOLZ, ENGLISH AS A SECOND LANGUAGE INSTRUCTOR ADELAIDA Primary Care Unavailable MCDANIEL ., ZELDA Consulting Unavailable ZIMMER ., DR FINA Iverson Admitting Unavailable ZIMMER ., DR FINA Iverson Attending Unavailable AICHOLZ, ENGLISH AS A SECOND LANGUAGE INSTRUCTOR ADELAIDA Primary Care Unavailable ZIMMER ., DR FINA Iverson Consulting Unavailable OMID LAY Consulting Unavailable ZIMMER ., DR FINA Iverson Admitting Unavailable ZIMMER ., DR FINA Iverson Attending Unavailable AICHOLZ, ENGLISH AS A SECOND LANGUAGE INSTRUCTOR ADELAIDA Primary Care Unavailable MCDANIEL ., ZELDA Consulting Unavailable AICHHOLZ, ENGLISH AS A SECOND LANGUAGE INSTRUCTOR ADELAIDA Primary Care Unavailable HALKER ., ARIAN Admitting Unavailable HALKER ., ARIAN Attending Unavailable LAKSHMIPATHY ., NARENDRANATH Consulting Paula vailable HALKER ., ARIAN Consulting Unavailable LAKSHMIPATHY ., NARENDRANATH Admitting Paula vailable LAKSHMIPATHY ., NARENDRANATH Attending Paula vailable AICHHOLZ, ENGLISH AS A SECOND LANGUAGE INSTRUCTOR ADELAIDA Primary Care Unavailable LAKSHMIPATHY ., NARENDRANATH Consulting Paula vailable AICHHOLZ, ENGLISH AS A SECOND LANGUAGE INSTRUCTOR ADELAIDA Admitting Unavailable AICHHOLZ, ENGLISH AS A SECOND LANGUAGE INSTRUCTOR ADELAIDA Attending Unavailable AICHHOLZ, ENGLISH AS A SECOND LANGUAGE INSTRUCTOR ADELAIDA Primary Care Unavailable AICHHOLZ, ENGLISH AS A SECOND LANGUAGE INSTRUCTOR ADELAIDA Consulting Unavailable BRIDGETTE MACEDO Admitting Unavailable BRIDGETTE MACEDO Attending Unavailable AICHHOLZ, ENGLISH AS A SECOND LANGUAGE INSTRUCTOR ADELAIDA Primary Care Unavailable STARR, DR KINGSLEY Atkins Consulting Unavailable BRIDGETTE MACEDO Consulting Unavailable PURA, GILMER Admitting Unavailable PURA, GILMER Attending Unavailable PURA, GILMER Consulting Unavailable AICHHOLZ, ENGLISH AS A SECOND LANGUAGE INSTRUCTOR ADELAIDA Primary Care Unavailable AICHHOLZ, ENGLISH AS A SECOND LANGUAGE INSTRUCTOR ADELAIDA Primary Care Unavailable DR WILLI RINALDI Admitting Unavailable DR WILLI RINALDI Attending Unavailable DEEJAY, DR WILLI Atkins Consulting Unavailable AICHHOLZ, ENGLISH AS A SECOND LANGUAGE INSTRUCTOR ADELAIDA Primary Care Unavailable ALMAZ ., DANNY Admitting Unavailable ALMAZ ., DANNY Attending Unavailable DR KINGSLEY CLEMENTS Consulting Unavailable ALMAZ ., DANNY Consulting Unavailable LAKSHMIPATHY ., NARENDRANATH Admitting Paula vailable LAKSHMIPATHY ., NARENDRANATH Attending Paula vailable AICHHOLZ, ENGLISH AS A SECOND LANGUAGE INSTRUCTOR ADELAIDA Primary Care Unavailable AICHHOLZ, ENGLISH AS A SECOND LANGUAGE INSTRUCTOR ADELAIDA Admitting Unavailable AICHHOLZ, ENGLISH AS A SECOND LANGUAGE INSTRUCTOR ADELAIDA Attending Unavailable AICHHOLZ, ENGLISH AS A SECOND LANGUAGE INSTRUCTOR ADELAIDA Primary Care Unavailable AICHHOLZ, ENGLISH AS A SECOND LANGUAGE INSTRUCTOR ADELAIDA Admitting Unavailable AICHHOLZ, ENGLISH AS A SECOND LANGUAGE INSTRUCTOR ADELAIDA Attending Unavailable AICHHOLZ, ENGLISH AS A SECOND LANGUAGE INSTRUCTOR ADELAIDA Primary Care Unavailable AICHHOLZ, ENGLISH AS A SECOND LANGUAGE INSTRUCTOR ADELAIDA Consulting Unavailable ZIEBER, DR KINGSLEY Atkins Consulting Unavailable HALKER ., ARIAN Admitting Unavailable HALKER ., ARIAN Attending Unavailable AICHHOLZ, ENGLISH AS A SECOND LANGUAGE INSTRUCTOR ADELAIDA Primary Care Unavailable Aichholz, Adelaida J Primary Care Provider MD Gaudencio Monk Admit Provider [phone] MD Gaudencio Monk Attending Provider Dariel RN Andreina Other Provider Unavailable JOHANN Pina Other Provider Unavailable JOHANN Hurtado Other Provider Unavailable JOHANN Crooks Other Provider Unavailable JOHANN Mejias Other Provider Unavailable Judy RN Elzbieta Other Provider Unavailable MD Walker Pringle Other Provider ROSS Marsh Other Provider [phone] DO Jessica Murillo Other Provider [phone] MD Obdulio Bragg Other Provider DO Joon Cristina Other Provider MD Torin Robert Other Provider MD Dawn Barrera Other Provider [phone] Karlene, ANP-BC Mari Other Provider MD Sofi [...] Care Provider MD Jace Graham Attending Provider [phone] Sheyla WARREN, Adelaida Unavailable José Luis Roberts [...] Joon Cristina Consulting UnavailTorin Beavers Consulting Unavailable aDwn Barrera Consulting Unavailable Mari Herrera Consulting UnavailSofi [...] adverse reactions (disorder) 04-06-19 14 rash [facility] Repository (3 sources) levETIRAcetam; Translations: [KEPPRA] Drug Allergy 07-02-19 19 [facility] Repository (3 sources) milnacipran; Translations: [SAVELLA] Drug Allergy 03-14-20 13 [facility] Repository (1 source) Penicillin; Translations: [PENICILLIN] Drug Allergy 01-16-20 18 [facility] Repository (5 sources) Prochlorperazin e; Translations: [COMPAZINE] Drug Allergy 03-14-20 13 agitation [facility] Repository (12 sources) Tetracycline; Translations: [TETRACYCLINE] Drug Allergy 04-06-19 13 Hives, Unknown [facility] Repository (4 sources) Penicillins Drug allergy (disorder) 04-06-19 13 Unknown Reaction [facility] Repository (9 sources) levETIRAcetam; Translations: [levetiracetam] Drug Allergy 12-13-19 22 Hallucinations , Other [facility] (9 sources) milnacipran; Translations: [milnacipran] Drug Allergy 12-13-19 22 hives, Hallucinations , Other, Unknown [facility] (7 sources) Prochlorperazin e; Translations: [prochlorperazi ne] Drug Allergy 12-13-19 22 Unknown, Other [facility] (2 sources) Penicillin G Drug Allergy as a child [facility] Other (2 sources) Tetracaine Drug Allergy Unknown [facility] Other (4 sources) Penicillins Drug Intolerance 12-13-19 22 Anaphylaxis [facility] (4 sources) Other Propensity to adverse reactions 12-13-19 22 Other [facility] (4 sources) Wound Dressing Adhesive Drug Allergy 09-20-19 23 Rash, Unknown [facility] (1 source) Penicillin Drug Allergy 12-20-19 23 [facility] (1 source) Penicillins Drug allergy (disorder) 03-23-20 23 [facility] (1 source) Tetracaine Drug Allergy 12-20-19 [facility] Repository Medications Current Medications Medication Drug Class(es) [...] (BARIATRIC MULTIVITAMINS/IRON PO) Bariatric Multivitamins/Iron 0 Active Rcwesulwwnlj-Vhu-Qpyv-Fa- Vit K (Bariatric Multivitamins) 45 mg iron- 800 mcg-120 mcg Capsule (2 sources) Start: 11-17-2022 take 1 capsule by mouth once daily Dhokrvkngeyc-Und-Wunl-Fa -Vit K (Bariatric Multivitamins) 45 mg iron- 800 mcg-120 mcg Capsule Active 1 CAP PO Daily November 16, 2022 11:00pm Start: 11-17-2022 take 1 capsule by [facility] once daily Shhcejnqmxed-Ser-Fyfu-Fa-Vit K (Bariatri c Multivitamins) 45 mg iron- 800 mcg-120 mcg Capsule Active 1 CAP PO Daily November 17, 2022 12:00am nystatin 100 unt/mg topical powder (4 sources) Polyene Antifungal nystatin (Myc ostatin) 688164 UNIT/GM powder Apply 1 application topically in [...] 02-20-2022 Episodic Other aftercare (1 source) 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) drug therapy; Translations: [[facility] CUR[facility]APY] Onset: 04-29-2022 Episodic Other [...] on 03-23-2023 Amphetamines Ql (U) Negative Negative [facility] Barbiturates [Presence] in U rine by Screen methodOrdered By: Jace Graham on 03-23-2023 Barbiturates Screen Ql (U) Negative Negative [facility] Benzodiazepines Screen Ql (U )Ordered By: Jace Graham on 03-23-2023 Benzodiazepines Ql (U) Negative Negative [facility] Benzoylecgonine [Presence] i n Urine by Screen methodOrdered By: Jace Graham on 03-23-2023 Benzoylecgonine Screen Ql (U) Negative Negative [facility] Cannabinoids [Presence] in U rine by Screen methodOrdered By: Jace Graham on 03-23-2023 Cannabinoids Screen Ql (U) Negative Negative [facility] Comment on above: These are unconfirme d results and should not be used for legal purposes. Drug Cut-Off Concentration: AMPH 1000 ng/mL ELKIN 200 ng/mL ATIYA 200 ng/mL COCM 300 ng/mL OP 300 ng/mL PCP 25 ng/mL THC 20 ng/mL Drug Screen,Urineon 03-23-20 Amphetamine Screen,Urine Negative Normal Negative [facility] Comment on above: Performed By: #### U RDS #### [address] Barbiturate Screen,Urine Negative Normal Negative [facility] Comment on above: Performed By: #### U RDS #### [address] Benzodiazepines Screen,Urine Negative Normal Negative [facility] Comment on above: Performed By: #### U RDS #### [address] Cannabinoid Screen,Urine Negative Normal Negative [facility] Comment on above: Result Comment: Thes e are unconfirmed results and should not be used for legal purposes. Drug Cut-Off Concentration: AMPH 1000 ng/mL ELKIN 200 ng/mL ATIYA 200 ng/mL COCM 300 ng/mL OP 300 ng/mL PCP 25 ng/mL THC 20 ng/mL PERFORMED BY: [place] [address] PATHOLOGIST ORGANIC SECTION TECHNICAL LEAD AN CURRY M.D. Performed By: #### U RDS #### [place] [address] [place] Cocaine Screen,Urine Negative Normal Negative [facility] Comment on above: Performed By: #### U RDS #### [place] [address] [place] Opiate Screen,Urine Negative Normal Negative [facility] Comment on above: Performed By: #### U RDS #### [address] Phencyclidine Screen,Urine Negative Normal Negative [facility] Comment on above: Performed By: #### U RDS #### [facility] [address] Opiates [Presence] in Urine by Screen methodOrdered By: Jace Graham on 03-23-2023 Opiates Screen Ql (U) Negative Negative [facility] Phencyclidine Screen Ql (U)O rdered By: Jace Graham on 03-23-2023 Phencyclidine Ql (U) Negative Negative [facility] Cholesterol [Mass/volume] in Serum or PlasmaOrdered By: Eduardo Monk on 11-18-2022 Cholesterol [Mass/Vol] 159 mg/dL 140-200 [facility] Comment on above: Chol less than 200 m g/dl low riskChol 201-239 mg/dl borderline riskChol 240 mg/dl and greater high risk Cholesterol in LDL Calc [Mas s/Vol]Ordered By: Eduardo Monk on 11-18-2022 Cholesterol in LDL [Mass/Vol] 84 mg/dL 0-100 [facility] Comment on above: LDL ATP III CLASSIFI CATIONLDL less than 100 mg/dL OptimalLDL 100-129 mg/dL Near or above optimalLDL 130-159 mg/dL Borderline highLDL 160-189 mg/dL HighLDL greater than 189 mg/dL Very high Cholesterol in VLDL Calc [Ma ss/Vol]Ordered By: Eduardo Monk on 11-18-2022 Cholesterol in VLDL [Mass/Vol] 28 mg/dL [facility] Lipid Panelon 11-18-2022 Cholesterol [Mass/Vol] 159 mg/dL Normal 140-200 [facility] Comment on above: Order Comment: teri barney to tomorrow morning Result Comment: Chol less than 200 mg/dl low risk Chol 201-239 mg/dl borderline risk Chol 240 mg/dl and greater high risk Performed By: #### L IPID #### [facility] [address] [id number] [facility] Cholesterol in HDL [Mass/Vol] 46 mg/dL Normal 23-92 [facility] Comment on above: Order Comment: teri barney to tomorrow morning Result Comment: HDL CHOL ATP-III CLASSIFICATION Cardiovascular Risk HDL > or equal to 60 mg/dL LOW HDL < 40 mg/dL HIGH Performed By: #### L IPID #### [facility] [address] [id number] [facility] Cholesterol.total/Chol esterol in HDL [Mass ratio] 3.5 {ratio} Normal <5.0 [facility] Comment on above: Order Comment: teri barney to tomorrow morning Result Comment: PERF ORMED BY: [place] [address] PATHOLOGIST ORGANIC SECTION TECHNICAL LEAD AN CURRY M.D. Performed By: #### L IPID #### [facility] [address] LDL Cholesterol,Calculated 84 mg/dL Normal 0-100 [facility] Comment on above: Order Comment: teri barney to tomorr morning Result Comment: LDL ATP III CLASSIFICATION LDL less than 100 mg/dL Optimal LDL 100-129 mg/dL Near or above optimal LDL 130-159 mg/dL Borderline high LDL 160-189 mg/dL High LDL greater than 189 mg/dL Very high Performed By: #### L IPID #### [facility] [address] Triglyceride w/Reflex 144 mg/dL Normal 0-149 [facility] Comment on above: Order Comment: teri barney to tomorr morning Result Comment: TRIG ATP III CLASSIFICATION TRIG less than 150 mg/dL Normal TRIG 150-199 mg/dL Borderline high TRIG 200-500 mg/dL High TRIG greater than 500 mg/dL Very high Standard traceable to the Center for Disease Conrtrol and Prevention (CDC) test method. Performed By: #### L IPID #### [facility] [address] [id number] [facility] VLDL CHOLESTEROL 28 mg/dL Normal [facility] Comment on above: Order Comment: teri barney to orr morning Performed By: #### L IPID #### [facility] [address] [id number] [facility] Serum or plasma high density lipoprotein (HDL) cholesterol measurementOrdered By: Eduardo Monk on 11-18-2022 Cholesterol in HDL [Mass/Vol] 46 mg/dL 23-92 [facility] Comment on above: HDL CHOL ATP-III CLA SSIFICATION Cardiovascular RiskHDL > or equal to 60 mg/dL LOWHDL < 40 mg/dL HIGH Serum or plasma total choles terol/high density lipoprotein (HDL) cholesterol mass ratOrdered By: Eduardo Monk on 11-18-2022 Cholesterol.total/Chol esterol in HDL [Mass ratio] 3.5 {ratio} <5.0 [facility] Thyroid Stimulating Hormoneo n 11-18-2022 TSH Qn 2.13 m[IU]/L Normal 0.45-5.33 [facility] Comment on above: Performed By: #### T SH3, [id number] #### [address] Thyrotropin [Units/volume] i n Serum or PlasmaOrdered By: Eduardo Monk on 11-18-2022 TSH Qn 2.13 m[IU]/L 0.45-5.33 [facility] Triglyceride [Mass/volume] i n Serum or PlasmaOrdered By: Eduardo Monk on 11-18-2022 Triglyceride [Mass/Vol] 144 mg/dL 0-149 [facility] Comment on above: TRIG ATP III CLASSIF ICATIONTRIG less than 150 mg/dL NormalTRIG 150-199 mg/dL Borderline highTRIG 200-500 mg/dL High TRIG greater than 500 mg/dL Very highStandard traceable to the Center for Disease Conrtrol and Prevention (CDC) test method. Vitamin D 25 Hydroxy Totalon 11-18-2022 Vitamin D 25 Hydroxy Total 50.4 ng/mL Normal 30-100 [facility] Comment on above: Result Comment: SKYLER MIN D STATUS 25(OH)VITAMIN D RANGE (ng/mL) Deficient <20 Insufficient 20 to <30 Sufficient 30 to 100 Reference: Bin MF,Lakshmi NC, Cristian SMART, et al. Evaluation,treatment, and prevention of vitamin D deficiency; an Endocrine Society clinical practice guideline. JCEM. 2010; 96(7):1911-30. PERFORMED BY: [facility] [address] [place] [address] PATHOLOGIST ORGANIC SECTION TECHNICAL LEAD AN CURRY M.D. Performed By: #### T SH3, [id number] #### [facility] [address] Vitamin D+Metabolites [Mass/ volume] in Serum or PlasmaOrdered By: Eduardo Monk on 11-18-2022 Vitamin D+Metabolites [Mass/Vol] 50.4 ng/mL 30-100 [facility] Comment on above: VITAMIN D STATUS 25( [place])VITAMIN D RANGE (ng/mL) Deficient <20 Insufficient 20 to <30Sufficient 30 to 100Reference: Bin MF,Lakshmi NC, Cristian SMART, et al. Evaluation,treatment, and prevention of vitamin D deficiency; an Endocrine Society clinical practice guideline. JCEM. 2010; 96(7):1911-30. CBC AUTO DIFFon 07-25-2022 BASO # 0.1 103/ul Normal 0.0-0.1 [facility] Comment on above: Performed By: #### A 1C #### [facility] [address] [place] [address] Dr. Bebeto Alvarado Basophils/100 WBC (Bld) 0.6 % Normal 0.2-2.0 [facility] Comment on above: Performed By: #### A 1C #### [facility] [address] [place] [address] Dr. Bebeto Alvarado EO # 0.2 103/ul Normal 0.0-0.7 [facility] Comment on above: Performed By: #### A 1C #### [facility] [address] [address] [address] Bebeto Alvarado Eosinophils/100 WBC (Bld) 2.3 % Normal 0.9-7.0 [facility] Comment on above: Performed By: #### A 1C #### [facility] [address] [address] [address] Bebeto Alvarado Erythrocyte distribution width (RBC) [Ratio] 13.8 % Normal 11.0-15.0 [facility] Comment on above: Performed By: #### A 1C #### [facility] [address] [address] [address] Bebeto Alvarado Hematocrit (Bld) [Volume fraction] 41.2 % Normal 36.0-48.0 [facility] Comment on above: Performed By: #### A 1C #### [facility] [address] [place] [address] Dr. Bebeto Alvarado Hemoglobin (Bld) [Mass/Vol] 13.2 g/dL Normal 12.0-16.0 [facility] Comment on above: Performed By: #### A 1C #### [facility] [address] [place] [address] Dr. Bebeto Alvarado IG # 0.03 10e3/ul Normal 0.00-0.03 [facility] Comment on above: Performed By: #### A 1C #### [facility] [address] [place] [address] Dr. Bebeto Alvarado IG % 0.4 % Normal 0.0-0.5 [facility] Comment on above: Performed By: #### A 1C #### [facility] [address] [place] [address] Dr. Bebeto Alvarado LYMPH # 2.1 103/ul Normal 1.2-3.8 [facility] Comment on above: Performed By: #### A 1C #### [facility] [address] [place] [address] Dr. Bebeto Alvarado Lymphocytes/100 WBC (Bld) 25.9 % Normal 20.5-60.0 [facility] Comment on above: Performed By: #### A 1C #### [facility] [address] [place] [address] Dr. Bebeto Alvarado MANUAL DIFF REQ NO Normal [facility] Comment on above: Performed By: #### A 1C #### [facility] [address] [place] [address] Dr. Bebeto Alvarado MCH (RBC) [Entitic mass] 28.0 pg Normal 26.7-34.0 [facility] Comment on above: Performed By: #### A 1C #### [facility] [address] [place] [address] Dr. Bebeto Alvarado MCHC (RBC) [Mass/Vol] 32.0 g/dL Normal 29.9-35.2 [facility] Comment on above: Performed By: #### A 1C #### [facility] [address] [place] [address] Dr. Bebeto Alvarado MCV (RBC) [Entitic vol] 87.5 fL Normal 81.0-99.0 [facility] Comment on above: Performed By: #### A 1C #### [facility] [address] [place] [address] Dr. Bebeto Alvarado MONO # 0.5 103/ul Normal 0.3-0.8 [facility] Comment on above: Performed By: #### A 1C #### [facility] [address] [place] [address] Dr. Bebeto Alvarado Monocytes/100 WBC (Bld) 6.6 % Normal 1.7-12.0 [facility] Comment on above: Performed By: #### A 1C #### [facility] [address] [place] [address] Dr. Bebeto Alvarado NEUT # 5.1 103/ul Normal 1.4-6.5 [facility] Comment on above: Performed By: #### A 1C #### [facility] [address] [place] [address] Dr. Bebeto Alvarado Neutrophils/100 WBC (Bld) 64.2 % Normal 43.0-75.0 [facility] Comment on above: Performed By: #### A 1C #### [facility] [address] [place] [address] Dr. Bebeto Alvarado Platelet mean volume (Bld) [Entitic vol] 11.2 fL Normal 9.5-13.5 [facility] Comment on above: Performed By: #### A 1C #### [facility] [address] [place] [address] Dr. Bebeto Alvarado PLT 252 103/ul Normal 150-450 [facility] Comment on above: Performed By: #### A 1C #### [facility] [address] [place] [address] Dr. Bebeto Alvarado RBC 4.71 106/ul Normal 4.20-5.40 [facility] Comment on above: Performed By: #### A 1C #### [facility] [address] [address] [address] Bebeto Alvarado WBC 8.0 103/ul Normal 4.0-11.0 [facility] Comment on above: Performed By: #### A 1C #### [facility] [address] [address] [address] Bebeto Alvarado GLYCOHEMOGLOBIN A1Con 2022 ADA RECOMMENDATION SEE BELOW Normal [facility] Comment on above: Result Comment: ADA RECOMMENDED LIMIT 4.0 - 6.0 ADA THERAPEUTIC TARGET < 7.0 ACTION SUGGESTED > 7.0 Performed By: #### A 1C #### [facility] [address] [place] [address] Dr. Bebeto Alvarado Glucose [Mass/Vol] 114 mg/dL Normal [facility] Comment on above: Performed By: #### A 1C #### [facility] [address] [address] [address] Bebeto Alvarado HbA1c (Bld) [Mass fraction] 5.6 % Normal 4.5-6.2 [facility] Comment on above: Performed By: #### A 1C #### [facility] [address] [place] [address] Dr. Bebeto Alvarado IRONon 07-25-2022 Iron [Mass/Vol] 60.0 ug/dL Normal 50.0-170.[address] [facility] Comment on above: Performed By: #### V ITB12, IRON #### [facility] [address] [place] [address] Dr. Bebeto Alvarado LIPID PROFILEon 07-25-2022 CHOL-HDL RATIO NORM SEE BELOW Normal [facility] Comment on above: Result Comment: 3.3 - 4.4 LOW RISK 4.4 - 7.1 AVERAGE RISK 7.1 - 11.0 MODERATE RISK >11.0 HIGH RISK Performed By: #### C MP, LIPID #### [facility] [address] [place] [address] Dr. Bebeto Alvarado Cholesterol [Mass/Vol] 144 mg/dL Normal <=[address] [facility] Comment on above: Performed By: #### C MP, LIPID #### [facility] [address] [address] [address] Bebeto Alvarado Cholesterol in HDL [Mass/Vol] 39 mg/dL Critically low 40-60 [facility] Comment on above: Performed By: #### C MP, LIPID #### [facility] [address] [address] [address] Bebeto Alvarado Cholesterol in LDL [Mass/Vol] 74.6 mg/dL Normal [facility] Comment on above: Performed By: #### C MP, LIPID #### [facility] [address] [address] [address] Bebeto Alvarado Cholesterol.total/Chol esterol in HDL [Mass ratio] 3.7 {ratio} Normal [facility] Comment on above: Performed By: #### C MP, LIPID #### [facility] [address] [address] [address] Bebeto Alvarado HDL NORMAL > or = 60 mg/dl - LO W CARDIOVASCULAR RISK <40 mg/dl - HIGH CARDIOVASCULAR RISK Normal [facility] Comment on above: Performed By: #### C MP, LIPID #### [facility] [address] [address] [address] Bebeto Alvarado LDL CALC NORMAL SEE BELOW Normal [facility] Comment on above: Result Comment: <100 mg/dl OPTIMAL 100 - 129 mg/dl NEAR OR ABOVE OPTIMAL 130 - 159 mg/dl BORDERLINE HIGH 160 - 189 mg/dl HIGH >190 mg/dl VERY HIGH Performed By: #### C MP, LIPID #### [facility] [address] [address] [address] Bebeto Alvarado Triglyceride [Mass/Vol] 152 mg/dL Critically high <=150 [facility] Comment on above: Performed By: #### C MP, LIPID #### [facility] [address] [address] [address] Bebeto Alvarado VLDL CALC 30.4 mg/dL Normal [facility] Comment on above: Performed By: #### C MP, LIPID #### [facility] [address] [address] [address] Bebeto Alvarado PROF 14(COMP METB)on 023 Albumin [Mass/Vol] 3.7 g/dL Normal 3.4-5.0 [facility] Comment on above: Performed By: #### C MP, LIPID #### [facility] [address] [address] [address] Bebeto Alvarado Albumin/Globulin [Mass ratio] 0.9 {ratio} Normal [facility] Comment on above: Performed By: #### C MP, LIPID #### [facility] [address] [place] [address] Dr. Bebeto Alvarado ALP [Catalytic activity/Vol] 90 U/L Normal 46-116 [facility] Comment on above: Performed By: #### C MP, LIPID #### [facility] [address] [place] [address] Dr. Bebeto Alvarado ALT [Catalytic activity/Vol] 38 U/L Normal 14-59 [facility] Comment on above: Performed By: #### C MP, LIPID #### [facility] [address] [place] [address] Dr. Bebeto Alvarado Anion gap [Moles/Vol] 12.1 mmol/L Normal [facility] Comment on above: Performed By: #### C MP, LIPID #### [facility] [address] [place] [address] Dr. Bebeto Alvarado AST [Catalytic activity/Vol] 26 U/L Normal 15-37 [facility] Comment on above: Performed By: #### C MP, LIPID #### [facility] [address] [place] [address] Dr. Bebeto Alvarado Bilirubin [Mass/Vol] 0.3 mg/dL Normal 0.2-1.0 [facility] Comment on above: Performed By: #### C MP, LIPID #### [facility] [address] [address] [address] Bebeto Alvarado Calcium [Mass/Vol] 9.3 mg/dL Normal 8.5-10.1 [facility] Comment on above: Performed By: #### C MP, LIPID #### [facility] [address] [address] [address] Bebeto Alvarado Chloride [Moles/Vol] 107 mmol/L Normal 98-107 [facility] Comment on above: Performed By: #### C MP, LIPID #### [facility] [address] [place] [address] Dr. Bebeto Alvarado CO2 [Moles/Vol] 27.9 mmol/L Normal 21.0-32.[address] [facility] Comment on above: Performed By: #### C MP, LIPID #### [facility] [address] [place] [address] Dr. Bebeto Alvarado Creatinine [Mass/Vol] 0.95 mg/dL Normal 0.55-1.02 [facility] Comment on above: Performed By: #### C MP, LIPID #### [facility] [address] [place] [address] Dr. Bebeto Alvarado EGFR-AF CITIZEN OF [place] >60 Normal >=[address] [facility] Comment on above: Performed By: #### C MP, LIPID #### [facility] [address] [place] [address] Dr. Bebeto Alvarado EGFR-NON AF CITIZEN OF [place] 60 mL/min/1.73m2 Normal >=60 [facility] Comment on above: Performed By: #### C MP, LIPID #### [facility] [address] [place] [address] Dr. Bebeto Alvarado Globulin (S) [Mass/Vol] 3.9 g/dL Normal [facility] Comment on above: Performed By: #### C MP, LIPID #### [facility] [address] [place] [address] Dr. Bebeto Alvarado Glucose [Mass/Vol] 108 mg/dL Critically high 74-106 [facility] Comment on above: Performed By: #### C MP, LIPID #### [facility] [address] [place] [address] Dr. Bebeto Alvarado Potassium [Moles/Vol] 4.0 mmol/L Normal 3.5-5.1 [facility] Comment on above: Performed By: #### C MP, LIPID #### [facility] [address] [place] [address] Dr. Bebeto Alvarado Protein [Mass/Vol] 7.6 g/dL Normal 6.4-8.2 [facility] Comment on above: Performed By: #### C MP, LIPID #### [facility] [address] [place] [address] Dr. Bebeto Alvarado Sodium [Moles/Vol] 143 mmol/L Normal 136-145 [facility] Comment on above: Performed By: #### C MP, LIPID #### [facility] [address] [place] [address] Dr. Bebeto Alvarado Urea nitrogen [Mass/Vol] 15.0 mg/dL Normal 7.0-18.0 [facility] Comment on above: Performed By: #### C MP, LIPID #### [facility] [address] [place] [address] Dr. Bebeto Alvarado Urea nitrogen/Creatinine [Mass ratio] 15.8 mg/mg Normal [facility] Comment on above: Performed By: #### C MP, LIPID #### [facility] [address] [place] [address] Dr. Bebeto Alvarado UA RANDOM W/MICROSCOPICon BACTERIA NONE SEEN Normal NONE SEEN [facility] Comment on above: Performed By: #### A 1C #### [facility] [address] [place] [address] Dr. Bebeto Alvarado Bilirubin Ql (U) Negative Normal NEGATIVE [facility] Comment on above: Performed By: #### A 1C #### [facility] [address] [place] [address] Dr. Bebeto Alvarado CAST NONE SEEN Normal NONE SEEN [facility] Comment on above: Performed By: #### A 1C #### [facility] [address] [place] [address] Dr. Bebeto Alvarado Clarity (U) CLEAR Normal CLEAR [facility] Comment on above: Performed By: #### A 1C #### [facility] [address] [place] [address] Dr. Bebeto Alvarado Color (U) YELLOW Normal YELLOW [facility] Comment on above: Performed By: #### A 1C #### [facility] [address] [place] [address] Dr. Bebeto Alvarado Crystals LM Nom (Urine sed) NONE SEEN Normal NONE SEEN [facility] Comment on above: Performed By: #### A 1C #### [facility] [address] [place] [address] Dr. Bebeto Alvarado Epithelial cells LM Ql (Urine sed) NONE SEEN Normal NONE SEEN /RARE [facility] Comment on above: Performed By: #### A 1C #### [facility] [address] [place] [address] Dr. Bebeto Alvarado Glucose Ql (U) Negative Normal NEGATIVE [facility] Comment on above: Performed By: #### A 1C #### [facility] [address] [place] [address] Dr. Bebeto Alvarado Hemoglobin Ql (U) Negative Normal NEGATIVE [facility] Comment on above: Performed By: #### A 1C #### [facility] [address] [place] [address] Dr. Bebeto Alvarado Ketones Ql (U) Negative Normal NEGATIVE [facility] Comment on above: Performed By: #### A 1C #### [facility] [address] [place] [address] Dr. Bebeto Alvarado LEUKOCYTES Negative Normal NEGATIVE [facility] Comment on above: Performed By: #### A 1C #### [facility] [address] [place] [address] Dr. Bebeto Alvarado MUCOUS NONE SEEN Normal NONE SEEN [facility] Comment on above: Performed By: #### A 1C #### [facility] [address] [place] [address] Dr. Bebeto Alvarado Nitrite Ql (U) Negative Normal NEGATIVE [facility] Comment on above: Performed By: #### A 1C #### [facility] [address] [place] [address] Dr. Bebeto Alvarado pH (U) 5.5 [pH] Normal 5-9 [facility] Comment on above: Performed By: #### A 1C #### [facility] [address] [place] [address] Dr. Bebeto Alvarado RBC NONE SEEN Abnormal 0-2 [facility] Comment on above: Performed By: #### A 1C #### [facility] [address] [place] [address] Dr. Bebeto Alvarado SPEC GRAVITY 1.030 Abnormal 1.005-<=1.02 5 [facility] Comment on above: Performed By: #### A 1C #### [facility] [address] [place] [address] Dr. Bebeto Alvarado UA PROTEIN Negative Normal NEGATIVE/ TRACE [facility] Comment on above: Performed By: #### A 1C #### [facility] [address] [place] [address] Dr. Bebeto Alvarado Urobilinogen Qn (U) 0.2 {Katerin'U}/dL Normal 0.2 - 1. 0 [facility] Comment on above: Performed By: #### A 1C #### [facility] [address] [place] [address] Dr. Bebeto Alvarado WBC NONE SEEN Normal NONE SEEN [facility] Comment on above: Performed By: #### A 1C #### [facility] [address] [place] [address] Dr. Bebeto Alvarado VITAMIN B12on 07-25-2022 Cobalamin (Vitamin B12) [Mass/Vol] 1684.0 pg/mL Critically high 193.0-986.0 [facility] Comment on above: Performed By: #### V ITB12, IRON #### [facility] [address] [place] [address] Dr. Bebeto Alvarado PROF CHEM 8 (BAS METB)on Anion gap [Moles/Vol] 12.2 mmol/L Normal [facility] Comment on above: Performed By: #### B MP #### [facility] [address] [place] [address] Dr. Bebeto Alvarado Calcium [Mass/Vol] 8.9 mg/dL Normal 8.5-10.1 [facility] Comment on above: Performed By: #### B MP #### [facility] [address] [place] [address] Dr. Bebeto Alvarado Chloride [Moles/Vol] 105 mmol/L Normal 98-107 [facility] Comment on above: Performed By: #### B MP #### [facility] [address] [address] [address] Bebeto Alvarado CO2 [Moles/Vol] 29.6 mmol/L Normal 21.0-32.0 [facility] Comment on above: Performed By: #### B MP #### [facility] [address] [address] [address] Bebeto Alvarado Creatinine [Mass/Vol] 0.95 mg/dL Normal 0.55-1.02 [facility] Comment on above: Performed By: #### B MP #### [facility] [address] [address] [address] Bebeto Alvarado EGFR-AF CITIZ[place] >60 Normal >=60 [facility] Comment on above: Performed By: #### B MP #### [facility] [address] [address] [address] Bebeto Alvarado EGFR-NON AF CITIZEN OF [place] 60 mL/min/1.73m2 Normal >=60 [facility] Comment on above: Performed By: #### B MP #### [facility] [address] [address] [address] Bebeto Alvarado Glucose [Mass/Vol] 101 mg/dL Normal 74-106 [facility] Comment on above: Performed By: #### B MP #### [facility] [address] [address] [address] Bebeto Alvarado Potassium [Moles/Vol] 3.8 mmol/L Normal 3.5-5.1 [facility] Comment on above: Performed By: #### B MP #### [facility] [address] [address] [address] Bebeto Alvarado Sodium [Moles/Vol] 143 mmol/L Normal 136-145 [facility] Comment on above: Performed By: #### B MP #### [facility] [address] [place] [address] Dr. Bebeto Alvarado Urea nitrogen [Mass/Vol] 16.0 mg/dL Normal 7.0-18.0 [facility] Comment on above: Performed By: #### B MP #### [facility] [address] [place] [address] Dr. Bebeto Alvarado Urea nitrogen/Creatinine [Mass ratio] 16.8 mg/mg Normal [facility] Comment on above: Performed By: #### B MP #### [facility] [address] [place] [address] Dr. Bebeto Alvarado CBC AUTO DIFFon 11-21-2021 BASO # 0.1 103/ul Normal 0.0-0.1 [facility] Comment on above: Performed By: #### A 1C #### [facility] [address] [place] [address] Dr. Bebeto Alvarado Basophils/100 WBC (Bld) 1.0 % Normal 0.2-2.0 [facility] Comment on above: Performed By: #### A 1C #### [facility] [address] [place] [address] Dr. Bebeto Alvarado EO # 0.2 103/ul Normal 0.0-0.7 [facility] Comment on above: Performed By: #### A 1C #### [facility] [address] [place] [address] Dr. Bebeto Alvarado Eosinophils/100 WBC (Bld) 3.3 % Normal 0.9-7.0 [facility] Comment on above: Performed By: #### A 1C #### [facility] [address] [place] [address] Dr. Bebeto Alvarado Erythrocyte distribution width (RBC) [Ratio] 13.8 % Normal 11.0-15.0 [facility] Comment on above: Performed By: #### A 1C #### [facility] [address] [place] [address] Dr. Bebeto Alvarado Hematocrit (Bld) [Volume fraction] 38.8 % Normal 36.0-48.0 [facility] Comment on above: Performed By: #### A 1C #### [facility] [address] [place] [address] Dr. Bebeto Alvarado Hemoglobin (Bld) [Mass/Vol] 12.5 g/dL Normal 12.0-16.0 [facility] Comment on above: Performed By: #### A 1C #### [facility] [address] [place] [address] Dr. Bebeto Alvarado IG # 0.02 10e3/ul Normal 0.00-0.03 [facility] Comment on above: Performed By: #### A 1C #### [facility] [address] [place] [address] Dr. Bebeto Alvarado IG % 0.3 % Normal 0.0-0.5 [facility] Comment on above: Performed By: #### A 1C #### [facility] [address] [place] [address] Dr. Bebeto Alvarado LYMPH # 1.9 103/ul Normal 1.2-3.8 [facility] Comment on above: Performed By: #### A 1C #### [facility] [address] [place] [address] Dr. Bebeto Alvarado Lymphocytes/100 WBC (Bld) 29.6 % Normal 20.5-60.0 [facility] Comment on above: Performed By: #### A 1C #### [facility] [address] [place] [address] Dr. Bebeto Alvarado MANUAL DIFF REQ NO Normal [facility] Comment on above: Performed By: #### A 1C #### [facility] [address] [place] [address] Dr. Bebeto Alvarado MCH (RBC) [Entitic mass] 28.0 pg Normal 26.7-34.0 [facility] Comment on above: Performed By: #### A 1C #### [facility] [address] [place] [address] Dr. Bebeto Alvarado MCHC (RBC) [Mass/Vol] 32.2 g/dL Normal 29.9-35.2 [facility] Comment on above: Performed By: #### A 1C #### [facility] [address] [place] [address] Dr. Bebeto Alvarado MCV (RBC) [Entitic vol] 86.8 fL Normal 81.0-99.0 [facility] Comment on above: Performed By: #### A 1C #### [facility] [address] [place] [address] Dr. Bebeto Alvarado MONO # 0.4 103/ul Normal 0.3-0.8 [facility] Comment on above: Performed By: #### A 1C #### [facility] [address] [place] [address] Dr. Bebeto Alvarado Monocytes/100 WBC (Bld) 5.7 % Normal 1.7-12.0 [facility] Comment on above: Performed By: #### A 1C #### [facility] [address] [place] [address] Dr. Bebeto Alvarado NEUT # 3.8 103/ul Normal 1.4-6.5 [facility] Comment on above: Performed By: #### A 1C #### [facility] [address] [place] [address] Dr. Bebeto Alvarado Neutrophils/100 WBC (Bld) 60.1 % Normal 43.0-75.0 [facility] Comment on above: Performed By: #### A 1C #### [facility] [address] [place] [address] Dr. Bebeto Alvarado Platelet mean volume (Bld) [Entitic vol] 11.0 fL Normal 9.5-13.5 [facility] Comment on above: Performed By: #### A 1C #### [facility] [address] [place] [address] Dr. Bebeto Alvarado PLT 264 103/ul Normal 150-450 [facility] Comment on above: Performed By: #### A 1C #### [facility] [address] [place] [address] Dr. Bebeto Alvarado RBC 4.47 106/ul Normal 4.20-5.40 [facility] Comment on above: Performed By: #### A 1C #### [facility] [address] [place] [address] Dr. Bebeto Alvarado WBC 6.3 103/ul Normal 4.0-11.0 [facility] Comment on above: Performed By: #### A 1C #### [facility] [address] [address] [address] Bebeto Alvarado GLYCOHEMOGLOBIN A1Con 2021 ADA RECOMMENDATION SEE BELOW Normal [facility] Comment on above: Result Comment: ADA RECOMMENDED LIMIT 4.0 - 6.0 ADA THERAPEUTIC TARGET < 7.0 ACTION SUGGESTED > 7.0 Performed By: #### A 1C #### [facility] [address] [address] [address] Bebeto Alvaraod Glucose [Mass/Vol] 105 mg/dL Normal [facility] Comment on above: Performed By: #### A 1C #### [facility] [address] [place] [address] Dr. Bebeto Alvarado HbA1c (Bld) [Mass fraction] 5.3 % Normal 4.5-6.2 [facility] Comment on above: Performed By: #### A 1C #### [facility] [address] [place] [address] Dr. Bebeto Alvarado IRONon 11-21-2021 Iron [Mass/Vol] 59.0 ug/dL Normal 50.0-170.[address] [facility] Comment on above: Performed By: #### A 1C #### [facility] [address] [place] [address] Dr. Bebeto Alvarado LIPID PROFILEon 11-21-2021 CHOL-HDL RATIO NORM SEE BELOW Normal [facility] Comment on above: Result Comment: 3.3 - 4.4 LOW RISK 4.4 - 7.1 AVERAGE RISK 7.1 - 11.0 MODERATE RISK >11.0 HIGH RISK Performed By: #### C MP, LIPID #### [facility] [address] [place] [address] Dr. Bebeto Alvarado Cholesterol [Mass/Vol] 139 mg/dL Normal <=[address] [facility] Comment on above: Performed By: #### C MP, LIPID #### [facility] [address] [place] [address] Dr. Bebeto Alvarado Cholesterol in HDL [Mass/Vol] 35 mg/dL Critically low 40-60 [facility] Comment on above: Performed By: #### C MP, LIPID #### [facility] [address] [address] [address] Bebeto Alvarado Cholesterol in LDL [Mass/Vol] 69.6 mg/dL Normal [facility] Comment on above: Performed By: #### C MP, LIPID #### [facility] [address] [place] [address] Dr. Bebeto Alvarado Cholesterol.total/Chol esterol in HDL [Mass ratio] 4.0 {ratio} Normal [facility] Comment on above: Performed By: #### C MP, LIPID #### [facility] [address] [place] [address] Dr. Bebeto Alvarado HDL NORMAL > or = 60 mg/dl - LO W CARDIOVASCULAR RISK <40 mg/dl - HIGH CARDIOVASCULAR RISK Normal [facility] Comment on above: Performed By: #### C MP, LIPID #### [facility] [address] [place] [address] Dr. Bebeto Alvarado LDL CALC NORMAL SEE BELOW Normal [facility] Comment on above: Result Comment: <100 mg/dl OPTIMAL 100 - 129 mg/dl NEAR OR ABOVE OPTIMAL 130 - 159 mg/dl BORDERLINE HIGH 160 - 189 mg/dl HIGH >190 mg/dl VERY HIGH Performed By: #### C MP, LIPID #### [facility] [address] [place] [address] Dr. Bebeto Alvarado Triglyceride [Mass/Vol] 172 mg/dL Critically high <=150 [facility] Comment on above: Performed By: #### C MP, LIPID #### [facility] [address] [place] [address] Dr. Bebeto Alvarado VLDL CALC 34.4 mg/dL Normal [facility] Comment on above: Performed By: #### C MP, LIPID #### [facility] [address] [address] [address] Bebeto Alvarado PROF 14(COMP METB)on 022 Albumin [Mass/Vol] 3.8 g/dL Normal 3.4-5.0 [facility] Comment on above: Performed By: #### C MP, LIPID #### [facility] [address] [place] [address] Dr. Bebeto Alvarado Albumin/Globulin [Mass ratio] 1.1 {ratio} Normal [facility] Comment on above: Performed By: #### C MP, LIPID #### [facility] [address] [place] [address] Dr. Bebeto Alvarado ALP [Catalytic activity/Vol] 96 U/L Normal 46-116 [facility] Comment on above: Performed By: #### C MP, LIPID #### [facility] [address] [address] [address] Bebeto Alvarado ALT [Catalytic activity/Vol] 25 U/L Normal 14-59 [facility] Comment on above: Performed By: #### C MP, LIPID #### [facility] [address] [address] [address] Bebeto Alvarado Anion gap [Moles/Vol] 11.8 mmol/L Normal [facility] Comment on above: Performed By: #### C MP, LIPID #### [facility] [address] [place] [address] Dr. Bebeto Alvarado AST [Catalytic activity/Vol] 20 U/L Normal 15-37 [facility] Comment on above: Performed By: #### C MP, LIPID #### [facility] [address] [address] [address] Bebeto Alvarado Bilirubin [Mass/Vol] 0.4 mg/dL Normal 0.2-1.0 [facility] Comment on above: Performed By: #### C MP, LIPID #### [facility] [address] [address] [address] Bebeto Alvarado Calcium [Mass/Vol] 8.8 mg/dL Normal 8.5-10.1 [facility] Comment on above: Performed By: #### C MP, LIPID #### [facility] [address] [address] [address] Bebeto Alvarado Chloride [Moles/Vol] 106 mmol/L Normal 98-107 [facility] Comment on above: Performed By: #### C MP, LIPID #### [facility] [address] [address] [address] Bebeto Alvarado CO2 [Moles/Vol] 27.0 mmol/L Normal 21.0-32.0 [facility] Comment on above: Performed By: #### C MP, LIPID #### [facility] [address] [address] [address] Bebeto Alvarado Creatinine [Mass/Vol] 0.97 mg/dL Normal 0.55-1.02 [facility] Comment on above: Performed By: #### C MP, LIPID #### [facility] [address] [address] [address] Bebeto Alvarado EGFR-AF [place]IZ[place] >60 Normal >=60 [facility] Comment on above: Performed By: #### C MP, LIPID #### [facility] [address] [address] [address] Bebeto Alvarado EGFR-NON AF CITIZEN [place] 59 mL/min/1.73m2 Critically low >=60 [facility] Comment on above: Performed By: #### C MP, LIPID #### [facility] [address] [address] [address] Bebeto Alvarado Globulin (S) [Mass/Vol] 3.4 g/dL Normal [facility] Comment on above: Performed By: #### C MP, LIPID #### [facility] [address] [address] [address] Bebeto Alvarado Glucose [Mass/Vol] 103 mg/dL Normal 74-106 [facility] Comment on above: Performed By: #### C MP, LIPID #### [facility] [address] [address] [address] Bebeto Alvarado Potassium [Moles/Vol] 3.8 mmol/L Normal 3.5-5.1 [facility] Comment on above: Performed By: #### C MP, LIPID #### [facility] [address] [address] [address] Bebeto Alvarado Protein [Mass/Vol] 7.2 g/dL Normal 6.4-8.2 [facility] Comment on above: Performed By: #### C MP, LIPID #### [facility] [address] [address] [address] Bebeto Alvarado Sodium [Moles/Vol] 141 mmol/L Normal 136-145 [facility] Comment on above: Performed By: #### C MP, LIPID #### [facility] [address] [address] [address] Bebeto Alvarado Urea nitrogen [Mass/Vol] 11.0 mg/dL Normal 7.0-18.0 [facility] Comment on above: Performed By: #### C MP, LIPID #### [facility] [address] [place] [address] Dr. Bebeto Alvarado Urea nitrogen/Creatinine [Mass ratio] 11.3 mg/mg Normal [facility] Comment on above: Performed By: #### C MP, LIPID #### [facility] [address] [place] [address] Dr. Bebeto Alvarado URIC ACID SERUMon 11-21-2021 Urate [Mass/Vol] 7.3 mg/dL Critically high 2.6-6.0 [facility] Comment on above: Performed By: #### A 1C #### [facility] [address] [place] [address] Dr. Bebeto Alvarado VITAMIN B12on 11-21-2021 Cobalamin (Vitamin B12) [Mass/Vol] 2123.0 pg/mL Critically high 193.0-986.0 [facility] Comment on above: Performed By: #### A 1C #### [facility] [address] [place] [address] Dr. Bebeto Alvarado Physician Referralon 022 Physician Referral [phone] [id number] Normal [facility] KNEE RIGHT 1 OR 2 VWSon KNEE RIGHT 1 OR 2 VWS [facility] Department of Radiology [address] [place] [address] ======== Patient Name: MICHELLE BE : 1960 Sex: F Age: Race: White Pt. Location: 84 Patient Status: O Ordered Date: 02/08/2019 10:40:00 AM Completed Date: 02/08/2019 10:38 AM Requesting Provider: AHSAN BINGHAM Attending Provider: AHSAN BINGHAM Report Copy To: Signs & Symptoms: S82.001A Unsp fracture of right patella, init for clos fx I10 History: [place] Comments: , , , Ordering Provider - [...] Electronically signed by:Debra Del Cid. Transcribed by: [email or web address], User Resident: Electronically Signed by: DEBRA DEL CID @ 02/08/2019 11:16 AM Normal [facility] Comment on above: Order Comment: , Mabel ws (X-RAY, KNEE): Radiologic Protocol , Weight Bearing?: N , With or Without Brace/Cast/Collar: With , Views (X-RAY, KNEE): Radiologic Protocol , Weight Bearing?: N , With or Without Brace/Cast/Collar: With , , , Ordering Provider - AHSAN BINGHAM PA-C , KNEE RIGHT 1 OR 2 VWSon KNEE RIGHT 1 OR 2 VWS [facility] Department of Radiology [address] [place] [id number] ======== Patient Name: MICHELLE BE : [...] complications. Electronically signed by:Tomasz Stoll. Transcribed by: [email or web address], User Resident: Electronically Signed by: TOMASZ STOLL @ 12/07/2018 11:14 AM Normal [facility] Comment on above: Order Comment: , Vie ws (X-RAY, KNEE): Radiologic Protocol , Weight Bearing?: N , With or Without Brace/Cast/Collar: With , Views (X-RAY, KNEE): Radiologic Protocol , Weight Bearing?: N , With or Without Brace/Cast/Collar: With , , , Ordering Provider - AHSAN BINGHAM PA-C , KNEE RIGHT 1 OR 2 [facility] KNEE RIGHT 1 OR 2 [facility] Department of Radiology [address] [place] [id number] ======== Patient Name: MICHELLE BE : 1960 Sex: F Age: Race: White Pt. 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 Transcribed by: [email or web address], User Resident: Electronically Signed by: ANUP ELLISON @ 10/06/2018 02:48 PM Normal [facility] Comment on above: Order Comment: , Mabel ws (X-RAY, KNEE): Radiologic Protocol , Weight Bearing?: N , With or Without Brace/Cast/Collar: With , Views (X-RAY, KNEE): Radiologic Protocol , Weight Bearing?: N , With or Without Brace/Cast/Collar: With , , , Ordering Provider - AHSAN BINGHAM PA-C , KNEE RIGHT 1 OR 2 [facility] 08-05 KNEE RIGHT 1 OR 2 VWS [facility] Department of Radiology [address] [place] [id number] ======== Patient Name: MICHELLE BE : [...] , Exam: KNEE RIGHT 1 OR 2 [facility] ======== KNEE RIGHT 1 OR 2 VWS [...] effusion Electronically signed by:Anup Ellison. Transcribed by: [email or web address], User Resident: Electronically Signed by: ANUP ELLISON @ 08/26/2018 04:56 PM Normal [facility] Comment on above: Order Comment: , Vie ws (X-RAY, KNEE): Radiologic Protocol , Weight Bearing?: N , With or Without Brace/Cast/Collar: With , Views (X-RAY, KNEE): Radiologic Protocol , Weight Bearing?: N , With or Without Brace/Cast/Collar: With , , , Ordering Provider - AHSAN BINGHAM PA-C , KNEE RIGHT 1 OR 2 [facility] 07-06 KNEE RIGHT 1 OR 2 [facility] Department of Radiology [address] [place] [id number] ======== Patient Name: MICHELLE BE : 1960 Sex: F Age: Race: White Pt. Location: Patient Status: Ordered Date: 07/29/2018 2:10:00 PM Completed Date: 07/29/2018 02:12 PM Requesting Provider: AHSAN BINGHAM Attending Provider: Report Copy To: Signs & Symptoms: S82.001A Unsp fracture of right patella, init for clos fx I10 History: [place] Comments: , , , Ordering Provider - AHSAN BINGHAM PA-C , Exam: KNEE RIGHT 1 OR 2 [facility] ======== KNEE RIGHT 1 OR 2 [facility] 07/29/2018 2:12 PM EDT SIGNS AND SYMPTOMS: [...] compartment Electronically signed by:Anup Ellison. Transcribed by: [email or web address], User Resident: Electronically Signed by: ANUP ELLISON @ 07/29/2018 03:41 PM Normal [facility] Comment on above: Order Comment: , Mabel ws (X-RAY, KNEE): Radiologic Protocol , Weight Bearing?: N , With or Without Brace/Cast/Collar: With , Views (X-RAY, KNEE): Radiologic Protocol , Weight Bearing?: N , With or Without Brace/Cast/Collar: With , , , Ordering Provider - AHSAN BINGHAM PA-C , KNEE RIGHT 3 [facility] [address] [facility] Department of Radiology [address] [place] [phone] ======== Patient Name: MICHELLE BE : 1960 Sex: F Age: Race: White Pt. Location: Patient Status: Ordered Date: 07/15/2018 8:45:00 AM Completed Date: 07/15/2018 08:47 AM Requesting Provider: AHSAN BINGHAM Attending Provider: Report Copy To: Signs & Symptoms: S82.001A Unsp fracture of right patella, init for clos fx I10 History: [place] Comments: , , , Ordering Provider - [...] Degenerative changes in the knee Electronically signed by:nAup Ellison. Transcribed by: [email or web address], User Resident: Electronically Signed by: ANUP ELLISON @ 07/15/2018 03:31 PM Normal [facility] Comment on above: Order Comment: , Vie ws (X-RAY, KNEE): Radiologic Protocol , Weight Bearing?: N , With or Without Brace/Cast/Collar: With , Views (X-RAY, KNEE): Radiologic Protocol , Weight Bearing?: N , With or Without Brace/Cast/Collar: With , , , Ordering Provider - AHSAN BINGHAM PA-C , Operative Reporton 9 Operative Report MR#: [id number] S [facility] Pt. Name: Michelle Be Room #: [...] was awoken from anesthesia without complication. Dr. Escaalnte was present all domínguez portions of the [...] Duarte MD Date Trans: 07/03/2018 04:28 A/terry [id number] Normal [facility] *ANAEROBIC CULTUREon 019 *ANAEROBIC CULTURE Clinical Report: (D) Specimen/Source: SWAB/RT KNEE Collected: 07/02/2018 13:53 Status: Final Last Updated: 07/07/2018 08:02 CULT RES (Final) No Anaerobes Isolated 5 Days Normal [facility] Comment on above: Performed By: #### 3 0312 #### [address] *WOUND CULTUREon 07-02-2018 *WOUND CULTURE Clinical Report: (D) Specimen/Source: WOUND/INTRAOP SPEC Collected: 07/02/2018 13:53 Status: Final Last Updated: 07/07/2018 10:13 (1) #1 RT KNEE GRAM (Final) Rare Polys No Bacteria Seen CULT RES (Final) No Growth Day 5 Normal [facility] Comment on above: Order Comment: #1 RT KNEE Performed By: #### 3 0343 #### [address] KNEE RIGHT 1 OR 2 VWSon 06-05 KNEE RIGHT 1 OR 2 S [facility] Department of Radiology [address] [place] [phone] ======== Patient Name: MICHELLE BE : [...] Electronically signed by:Debra Del Cid. Transcribed by: [email or web address], User Resident: Electronically Signed by: DEBRA DEL CID @ 07/02/2018 02:03 PM Normal [facility] Comment on above: Order Comment: ORIF VS PERCUTANEOUS FIXATION RIGHT PATELLA POC GLUCOSE LABon 07-02-2018 Glucose [Mass/Vol] 108 mg/dL High 70-100 [facility] Comment on above: Performed By: #### 8 5499 #### [facility] [address] [facility]. [address] APTTon 06-30-2018 aPTT Coag (Bld) [Time] 30.6 s Normal 25.0-35.0 Th e [facility] Comment on above: Result Comment: ALL [...] THIS PURPOSE. Performed By: #### 5 6101, 37088 #### [facility] [address] [place] [address], [facility] BASIC METABOLIC PANELon 06-05 Calcium [Mass/Vol] 9.7 mg/dL Normal 8.6-10.3 [facility] Comment on above: Performed By: #### 0 0071 #### [facility] [address] [place] [address], [place] Chloride [Moles/Vol] 102 mmol/L Normal 98-107 [facility] Comment on above: Performed By: #### 0 0071 #### [facility] [address] [place] [address], [place] CO2 [Moles/Vol] 28 mmol/L Normal 21-31 [facility] Comment on above: Performed By: #### 0 0071 #### [facility] [address] [place] [address], [place] Creatinine [Mass/Vol] 1.20 mg/dL Normal 0.60-1.20 [facility] Comment on above: Performed By: #### 0 0071 #### [facility] [address] [place] [address], [place] GFR/1.73 sq M predicted among blacks MDRD (S/P/Bld) [Vol rate/Area] 56 ml/min/1.73sq m Abnormal >60 [facility] Comment on above: Performed By: #### 0 0071 #### [facility] [address] [place] [address], [place] GFR/1.73 sq M predicted among non-blacks MDRD (S/P/Bld) [Vol rate/Area] 47 ml/min/1.73sq m Abnormal >60 [facility] Comment on above: Performed By: #### 0 0071 #### [facility] [address] [place] [address], [place] Glucose [Mass/Vol] 97 mg/dL Normal 70-100 [facility] Comment on above: Performed By: #### 0 0071 #### [facility] [address] [place] [address], [place] Potassium [Moles/Vol] 4.1 mmol/L Normal 3.5-5.1 [facility] Comment on above: Performed By: #### 0 0071 #### [facility] [address] Sodium [Moles/Vol] 137 mmol/L Normal 136-145 [facility] Comment on above: Performed By: #### 0 0071 #### [facility] [address] Urea nitrogen [Mass/Vol] 19 mg/dL Normal 7-25 [facility] Comment on above: Performed By: #### 0 0071 #### [facility] [address] CBC W/DIFFon 06-30-2018 ABS BASOPHILS 0.1 10*3/uL Normal 0.0-0.2 [facility] Comment on above: Performed By: #### 5 3 #### [facility] [address] ABS IMM GRANS 0.0 10*3/uL Normal 0.0-0.2 [facility] Comment on above: Performed By: #### 5 102 #### [facility] [address] ABS NEUTROPHILS 6.4 10*3/uL Normal 1.6-7.6 [facility] Comment on above: Performed By: #### 5 102 #### [facility] [address] Basophils/100 WBC (Bld) 0.7 % Normal 0.0-1.0 [facility] Comment on above: Performed By: #### 5 102 #### [facility] [address] Eosinophils (Bld) [#/Vol] 0.2 10*3/uL Normal 0.0-0.5 [facility] Comment on above: Performed By: #### 5 0103 #### [facility] [address] [facility] [place] [address], [facility] Eosinophils/100 WBC (Bld) 1.5 % Normal 0.0-6.0 [facility] Comment on above: Performed By: #### 5 0103 #### [facility] [address] [facility] [address] Erythrocyte distribution width (RBC) [Ratio] 14.4 % Normal 11.5-15.0 [facility] Comment on above: Performed By: #### 5 0103 #### [facility] [address] [facility]. [address] Hematocrit (Bld) [Volume fraction] 40.6 % Normal 36.0-45.0 [facility] Comment on above: Performed By: #### 5 0103 #### [facility] [address] [facility]. [address] Hemoglobin (Bld) [Mass/Vol] 13.3 g/dL Normal 12.0-15.0 [facility] Comment on above: Performed By: #### 5 0103 #### [facility] [address] [facility] IMMATURE GRANS 0.4 % Normal 0.0-1.0 [facility] Comment on above: Performed By: #### 5 0103 #### [facility] [address] [facility]. [address] Lymphocytes (Bld) [#/Vol] 2.6 10*3/uL Normal 1.2-4.0 [facility] Comment on above: Performed By: #### 5 3 #### [facility] [address] [place] [address], [facility] Lymphocytes/100 WBC (Bld) 26.5 % Normal 20.0-45.0 [facility] Comment on above: Performed By: #### 5 0103 #### [facility] [address] [place] [address], [facility] MCH (RBC) [Entitic mass] 27.4 pg Normal 27.0-33.0 [facility] Comment on above: Performed By: #### 5 3 #### [facility] [address] [place] [address], [facility] MCHC (RBC) [Mass/Vol] 32.8 g/dL Normal 32.0-35.0 [facility] Comment on above: Performed By: #### 5 0103 #### [facility] [address] [place] [address], [facility] MCV (RBC) [Entitic vol] 83.5 fL Normal 82.0-98.0 [facility] Comment on above: Performed By: #### 5 3 #### [facility] [address] [place] [address], [facility] Monocytes (Bld) [#/Vol] 0.5 10*3/uL Normal 0.1-1.0 [facility] Comment on above: Performed By: #### 5 3 #### [facility] [address] [place] [address], [facility] MONOS 5.0 % Normal 5.0-12.0 [facility] Comment on above: Performed By: #### 5 3 #### [facility] [address] [facility] [place] [address], [facility] Neutrophils/100 WBC (Bld) 65.9 % Normal 40.0-72.0 [facility] Comment on above: Performed By: #### 5 3 #### [facility] [address] [place] [address], [facility] Nucleated RBC/100 WBC (Bld) [Ratio] 0 % Normal 0-0 [facility] Comment on above: Performed By: #### 5 0103 #### [facility] [address] [facility] [place] [address], [facility] PLAT CNT 290 10*3/uL Normal 150-400 [facility] Comment on above: Performed By: #### 5 0103 #### [facility] [address] [facility] [place] [address], [facility] RBC (Bld) [#/Vol] 4.86 10*6/uL Normal 3.80-5.00 [facility] Comment on above: Performed By: #### 5 0103 #### [facility] [address] [facility] [place] [address], [facility] WBC (Bld) [#/Vol] 9.68 10*3/uL Normal 4.00-10.60 [facility] Comment on above: Performed By: #### 5 0103 #### [facility] [address] [place] [address], [facility] KNEE RIGHT 1 OR 2 VWSon 06-05 KNEE RIGHT 1 OR 2 S [facility] Department of Radiology [address] [place] [phone] ======== Patient Name: MICHELLE BE : 1960 Sex: F Age: Race: White Pt. 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, 7thD I10 History: [place] Comments: , Views (X-RAY, KNEE): Radiologic Protocol [...] Electronically signed by:Debra Del Cid. Transcribed by: [email or web address], User Resident: Electronically Signed by: DEBRA DEL CID @ 06/30/2018 11:52 AM Normal [facility] Comment on above: Order Comment: , Mabel ws (X-RAY, KNEE): Radiologic Protocol , Weight Bearing?: N , With or Without Brace/Cast/Collar: With , Views (X-RAY, KNEE): Radiologic Protocol , Weight Bearing?: N , With or Without Brace/Cast/Collar: With , , , Ordering Provider - AHSAN BINGHAM PA-C , PROTHROMBIN TIMEon 9 INR Coag (PPP) [Relative time] 0.98 {INR} Normal 0.91-1.16 [facility] Comment on above: Result Comment: [facility] P RECOMMENDED INR FOR WARFARIN THERAPY --------- [...] CHEST 1995;108:231S-246S. Performed By: #### 5 6101, [id number] #### [address] PT Coag (PPP) [Time] 13.0 s Normal 12.3-14.8 [facility] Comment on above: Result Comment: ALL RESULTS MUST BE INTERPRETED WITH RESPECT TO BLOOD DRAWING ARTIFACT OR DILUTION ERROR OF ANTICOAGULANT AT THE TIME OF SAMPLING. Performed By: #### 5 6101, [id number] #### [address] KNEE RIGHT 3 VWSon 9 KNEE RIGHT 3 VWS [facility] Department of Radiology [address] [place] [phone] ======== Patient Name: MICHELLE BE : 1960 Sex: F Age: Race: White Pt. Location: 84 Patient Status: O Ordered Date: 06/15/2018 1:35:00 PM Completed Date: 06/15/2018 01:34 PM Requesting Provider: AMPARO ZHANG Attending Provider: AMPARO ZHANG Report Copy To: ADELAIDA CARRION Signs & Symptoms: M17.11 Unilateral primary osteoarthritis, right knee I10 History: [place] Comments: , Weight Bearing?: Y , Weight Bearing?: Y , , , Ordering Provider - AMPARO ZHANG PA-C , Exam: KNEE RIGHT 3 [facility] ======== KNEE RIGHT 3 S 06/15/2018 1:34 [...] effusion Electronically signed by:Anup Ellison. Transcribed by: [email or web address], User Resident: Electronically Signed by: ANUP ELLISON @ 06/15/2018 03:50 PM Normal [facility] Comment on above: Order Comment: , Isaiah ght Bearing?: Y , Weight Bearing?: Y , , , Ordering Provider - AMPARO ZHANG PA-C , Vital Signs Date Time Vital Sign Value Performing Clinician Facility 05-18-2023 16:30-0500 Body height 162.6 cm Adelaida Sheyla [employer] Work Phone: [facility] 05-18-2023 16:30-0500 Body mass index (BMI) [Ratio] 47.89 kg/m2 Adelaida Sheyla [employer] Work Phone: [facility] 05-18-2023 16:30-0500 Body temperature 97.3 [degF] Adelaida Sheyla [employer] Work Phone: [facility] 05-18-2023 16:30-0500 Body weight 126.55 kg Adelaida Sheyla [employer] Work Phone: [facility] 05-18-2023 16:30-0500 Diastolic blood pressure 80 mm[Hg] Adelaida Sheyla [employer] Work Phone: [facility] 05-18-2023 16:30-0500 Heart rate 76 /min Adelaida Sheyla [employer] Work Phone: [facility] 05-18-2023 16:30-0500 Respiratory rate 19 /min Adelaida Sheyla [employer] Work Phone: [facility] 05-18-2023 16:30-0500 SaO2% (BldA) [Mass fraction] 97 % Adelaida Carrion [employer] Work Phone: [facility] 02-12-2024 16:30-0500 Systolic blood pressure 134 mm[Hg] Adelaida Aichholz [employer] Work Phone: [facility] 03-23-2023 12:10-0500 Diastolic blood pressure 98 mm[Hg] Adelaida Aichholz Work Phone: [facility] 03-23-2023 12:10-0500 Heart rate 76 /min Adelaida Aichholz Work Phone: [facility] 03-23-2023 12:10-0500 Respiratory rate 18 /min Adelaida Aichholz Work Phone: [facility] 03-23-2023 12:10-0500 SaO2% (BldA) [Mass fraction] 99 % Adelaida Aichholz Work Phone: [facility] 03-23-2023 12:10-0500 Systolic blood pressure 162 mm[Hg] Adelaida Aichholz Work Phone: [facility] 03-23-2023 10:53-0500 Body height 162.56 cm Adelaida Aichholz Work Phone: [facility] 03-23-2023 10:53-0500 Body weight 125.64 kg Adelaida Aichholz Work Phone: [facility] 12-19-2022 14:55-0400 Body height 162.56 cm Rosemary Kirkland Other [facility] Other 12-19-2022 14:55-0400 Body mass index (BMI) [Ratio] 47.85 kg/m2 Rosemary Kirkland Other [facility] Other 12-19-2022 14:55-0400 Body temperature 97.8 [degF] Rosemary Kirkland Other [facility] Other 12-19-2022 14:55-0400 Body weight 126.46 kg Rosemary Kirkland Other [facility] Other 12-19-2022 14:55-0400 Respiratory rate 20 /min Rosemary Vernonmond Other [facility] Other 12-19-2022 14:55-0400 SaO2% (BldA) [Mass fraction] 95 % Rosemary Kirkland Other [facility] Other 11-20-2022 13:12-0400 Body temperature 97.7 [degF] Adelaida Aichholz Work Phone: [facility] 11-20-2022 13:12-0400 SaO2% (BldA) [Mass fraction] 96 % Adelaida Aichholz Work Phone: [facility] 11-20-2022 07:44-0400 Diastolic blood pressure 90 mm[Hg] Adelaida Aichholz Work Phone: [facility] 11-20-2022 07:44-0400 Heart rate 103 /min Adelaida Aichholz Work Phone: [facility] 11-20-2022 07:44-0400 Systolic blood pressure 152 mm[Hg] Adelaida Aichholz Work Phone: [facility] 11-19-2022 20:00-0400 Respiratory rate 18 /min Adelaida Aichholz Work Phone: [facility] 11-18-2022 15:18-0400 Body height 162.56 cm Adelaida Aichholz Work Phone: [facility] 11-17-2022 09:00-0400 Body weight 122.92 kg Adelaida Aichholz Work Phone: [facility] Encounters Encounter Date Encounter Type Care Provider Facility Start: 07-07-2023 End: 07-07-2023 ambulatory ADELAIDA AICHHOLZ Not Available Start: 05-22-2023 End: 05-22-2023 ambulatory ASHLEIGH HINES Not Available Start: 05-21-2023 Refill Adelaida Carrion [employer] Work Phone: [facility] Comment on above: Acute cystitis with hematuria (Primary Dx) Start: 05-18-2023 End: 05-18-2023 ambulatory ADELAIDA CARRION Not Available Start: 05-18-2023 End: 05-18-2023 Office outpatient visit 25 minutes Adelaida Carrion [employer] Work Phone: [facility] Comment on above: Encounter for annual wellness visit (AWV) in Medicare patient (Primary Dx); OSMANY (obstructive sleep apnea); Chronic pain disorder; Gastroesophageal reflux disease, unspecified whether esophagitis present; Overactive bladder; Lower extremity edema; Pre-diabetes; Morbid obesity (CMS/HCC); Yeast infection of the skin; Tobacco dependence; Mood disorder (CMS/[facility]); Primary hypertension ([facility]); Left hip pain; Open wound of anterior abdominal wall, initial encounter Start: 05-18-2023 Bamboo flowsheet Adelaida Carrion [employer] Work Phone: [facility] Start: 05-18-2023 Bamboo flowsheet Adelaida Carrion [employer] Work Phone: [facility] Start: 05-18-2023 End: 05-18-2023 Patient encounter procedure Adelaida Carrion [employer] Work Phone: [facility] Start: 04-30-2023 ambulatory Eduardo Acevedo acility:[facility] Start: 03-25-2023 End: 03-25-2023 ambulatory ADELAIDA SHEYLA Not Available Start: 03-23-2023 End: 03-23-2023 ambulatory Jace Graham Facility:[facility] Start: 03-23-2023 End: 03-23-2023 Admission to same day surgery center Adelaida Carrion Work Phone: [facility] Work Phone: Start: 03-23-2023 End: 03-23-2023 ambulatory Adelaida Carrion Work Phone: [facility] Work Phone: Start: 03-11-2023 End: 03-11-2023 ambulatory KALLI INTERIANOLENKA Not Available Start: 02-20-2023 End: 02-20-2023 ambulatory ASHLEIGH HINES Not Available Start: 02-12-2023 End: 02-12-2023 ambulatory Jace Graham Other [facility] Other Start: 02-12-2023 Telephone encounter Jace Haney Patrol Agent Start: 12-19-2022 End: 12-19-2022 ambulatory Rosemary Kirkland Other [facility] Other Start: 12-19-2022 Office outpatient ne w 10 minutes Rosemary Kirkland [facility] [place] Start: 11-17-2022 End: 11-20-2022 Evaluation and management of inpatient Eduardo Aleshia Facility:[facility] Start: 11-17-2022 End: 11-20-2022 Evaluation and management of inpatient Adelaida Merryholz Work Phone: [facility] Work Phone: Start: 09-04-2022 ambulatory ARIAN Banegas Facili ty:[facility] Start: 08-26-2022 ambulatory NARENDRANATH LAKSHMIPATHY . 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 ADELAIDA AICHHOLZ Facility:[facility] Start: 07-25-2022 End: 07-26-2022 ambulatory ENGLISH AS A SECOND LANGUAGE INSTRUCTOR ADELAIDA AICHHOLZ Facility:[facility] Start: 07-15-2022 End: 07-15-2022 [...] Start: 01-01-2022 End: 01-02-2022 ambulatory [facility]IDGETTE [facility] Start: 12-16-2021 End: 12-16-2021 ambulatory [...] End: 07-03-2018 Patient encounter procedure SUKI ESCALANTE Facility:[facility] Procedures Date Procedure Procedure Detail Performing Clinician Start: 03-23-2023 Screening colonoscopy L oneal Carrion Work Phone: Start: 03-23-2023 Colonoscopy Adelaida Jayden analily SOLDERING MACHINE FEEDER Work Phone: Start: 09-15-2022 Mammography Adelaida Jayden ramos SOLDERING MACHINE FEEDER Work Phone: Start: 08-28-2022 Microscopic observat ion [Identifier] in Cervix by Cyto stain Adelaida Carrion SOLDERING MACHINE FEEDER Work Phone: Start: 07-02-2018 ANESTH KNEE AREA SURGERY CHAPARRITA HENDRICKS Start: 07-02-2018 REMOVAL OF SUPPORT IMPLANT SUKI EBRAHEIM Start: 07-02-2018 TREAT KNEECAP FRACTURE SUKI EBRAHEIM Plan of Treatment Date Care Activity Detail Author Start: 03-23-2033 Screening for malignant neoplasm of colon [facility] Start: 08-28-2025 Screening for malignant neoplasm of cervix [facility] Start: 05-18-2024 Medicare Annual Wellness (AWV) Medicare Annual Wellness (AWV) [facility] Start: 09-16-2023 Screening for malignant neoplasm of breast Mammogram [facility] Start: 08-17-2023 End: 08-17-2023 Patient encounter procedure 08/17/2023 9:20 AM EDT Office Visit [facility] [address] [place] [address] Adelaida Carrion NP [address] [place] [address] [facility] Start: 05-22-2023 End: 05-22-2023 Patient encounter procedure 05/22/2023 8:45 AM EST Office Visit [facility] [address] [facility] [address] [place] [place] [address] Ashleigh Hines PA [address] [facility] [address] [place] [address] [facility] Start: 05-18-2023 End: 05-18-2023 Patient encounter procedure 05/18/2023 4:30 PM EST [facility] [address] [place] [address] Adelaida Carrion NP [address] [place] [address] Arrived [facility] Comment on above: Arrived Start: 05-18-2023 End: 05-18-2024 XR Hip - left 3 Views XR hip left 2 or 3 views Imaging Routine Left hip pain Expected: 05/18/2023 (Approximate), Expires: 05/18/2024 [facility] Work Phone: Comment on above: Expected: 05/18/2023 (Approximate), Expires: 05/18/2024 Start: 03-23-2023 [facility] Start: 11-20-2022 [facility] Start: 11-18-2022 Referral to clinical invisible braces orthodontist [facility] Start: 11-17-2022 Hospital admission [facility] Start: 11-17-2022 [facility] Start: 12-06-1991 Screening for malignant neoplasm of cervix HPV/Cotest [facility] Start: 1960 Medicare Annual Wellness (AWV) Medicare Annual Wellness (AWV) [facility] Start: 1960 Screening for malignant neoplasm of colon [facility] Patient Education [facility] Work Phone: Patient referral [facility] Work Phone: [facility] Immunizations Immunization Date Immunization Notes Care Provider [facility] 02-13-2023 influenza, injectabl e, quadrivalent, preservative free Adelaida Carrion SOLDERING MACHINE FEEDER Work Phone: [facility] 02-13-2023 SARS-COV-2 (COVID-19 ) vaccine, mRNA, spike protein, LNP, PF, 50 mcg/0.5 mL Adelaida Carrion SOLDERING MACHINE FEEDER Work Phone: [facility] 02-19-2022 diphtheria, tetanus toxoids and pertussis vaccine Adelaida Carrion SOLDERING MACHINE FEEDER Work Phone: [facility] 03-02-2021 Moderna SARS-CoV-2 Vaccination Adelaida Carrion SOLDERING MACHINE FEEDER Work Phone: [facility] 08-24-2020 Moderna SARS-CoV-2 Vaccination Adelaida Carrion SOLDERING MACHINE FEEDER Work Phone: [facility] 07-27-2020 Moderna SARS-CoV-2 Vaccination Adelaida Carrion SOLDERING MACHINE FEEDER Work Phone: [facility] 05-28-2018 influenza, injectabl e, quadrivalent, preservative free Adelaida Carrion Work Phone: [facility] Payers Date Payer Category Payer Medicare [id number] 2022 Private Health Insurance [id number] 2022 Self-pay [id number] 2022 Medicare [employer] MED[employer] MEDICARE REPLACEMENT [id number] 2022-Present [address] [address] [place] [address] [id number] 2008 Unknown [id number] 1961 Unknown [id number] 2.16.840.1.258904.3.579.2 .647 1961 Unknown [id number] 2.16.840.1.755956.3.579.2 .593 1961 Unknown [id number] 2.16.840.1.569194.3.579.2 .593 1961 Unknown [id number] 2.16.840.1.838178.3.579.2 .593 1961 Unknown [id number] 2.16.840.1.835533.3.579.2 .593 1961 Unknown [id number] 2.16.840.1.473786.3.579.2 .593 1961 Unknown [id number] 2.16.840.1.528391.3.579.2 .593 1961 Unknown [id number] 2.16.840.1.378622.3.579.2 .593 1961 Unknown [id number] 2.16.840.1.424119.3.579.2 .593 1961 Unknown [id number] 2.16.840.1.933970.3.579.2 .593 1961 Unknown [id number] 2.16.840.1.369526.3.579.2 .593 1961 Unknown [id number] 2.16.840.1.632821.3.579.2 .593 1961 Unknown [id number] 2.16.840.1.956588.3.579.2 .593 1961 Unknown [id number] 2.16.840.1.302496.3.579.2 .593 1961 Unknown [id number] 2.16.840.1.312743.3.579.2 .593 1961 Unknown [id number] 2.16.840.1.764730.3.579.2 .593 1961 Unknown [id number] 2.16.840.1.784077.3.579.2 .593 1961 Unknown [id number] 2.16.840.1.113667.3.579.2 .593 1961 Unknown [id number] 2.16.840.1.348778.3.579.2 .593 1961 Unknown [id number] 2.16.840.1.531010.3.579.2 .593 1961 Unknown [id number] 2.16.840.1.429567.3.579.2 .593 1961 Unknown [id number] 2.16.840.1.418079.3.579.2 .593 1961 Unknown [id number] 2.16.840.1.263482.3.579.2 .593 1961 Unknown [id number] 2.16.840.1.339240.3.579.2 .593 1961 Unknown [id number] 2.16.840.1.903182.3.579.2 .593 1961 Unknown [id number] 2.16.840.1.350786.3.579.2 .1259 1961 Unknown [id number] 2.16.840.1.333213.3.579.2 .1259 1961 Unknown [id number] 2.16.840.1.151675.3.579.2 .1259 1961 Unknown [id number] 2.16.840.1.562202.3.579.2 .1259 1961 Unknown [id number] 2.16.840.1.457942.3.579.2 .1259 1961 Unknown [id number] 2.16.840.1.736981.3.579.2 .1259 1959 Medicare [id number] 1959 Unknown [id number] Unknown [id number] 2.16.840.1.082533.3.579.2 .531 Unknown [id number] 2.16.840.1.142849.3.579.2 .531 Unknown [id number] 2.16.840.1.683511.3.579.2 .531 Social History Date Type Detail Facility Start: 11-18-2022 End: 02-09-2023 Tobacco smoking status MSIS Ex-smoker (finding) [facility] Start: 1960 Sex Assigned At Female [facility] Start: 03-25-2023 End: 05-18-2023 Sex Assigned At [...] Facility 11-20-2022 Functional status Patient at Baseline [facility] Work Phone: Mental Status Date Assessment Result Facility 11-20-2022 Cognitive function Cognitive Sta tus Patient is Progressing Toward Baseline [facility] Work Phone: Clinical Notes 10-03-2021 to [...] (BARIATRIC MULTIVITAMINS/IRON PO) Bariatric Multivitamins/Iron nystatin (Mycostatin) 248280 UNIT/GM powder 1 application , Topical, 2 [...] Degenerative cervical disc Degenerative lumbar disc Depression ([facility]) 05/18/2023 Diastolic dysfunction Dizziness 05/18/2023 Dysphagia Fibromyalgia Gastrocnemius equinus GERD (gastroesophageal reflux disease) Heart murmur Hematoma of right breast Hemiparesis, right ([facility]) Hemorrhoid int/external hemorrhoids Hiatal hernia Iron deficiency Left foot pain 03/25/2023 Lower extremity edema Mood disorder ([facility]) mixed mood disorder OSMANY (obstructive sleep apnea) Osteoporosis ([facility]) Overactive bladder Pre-diabetes Primary hypertension ([facility]) 03/25/2023 PTSD (post-traumatic stress disorder) ([facility]) Restless leg Right knee pain Right sided weakness S/P bariatric surgery Shingles Slurred speech Stroke ([facility]) 2018 Tenosynovitis, de Quervain Thoracic back pain, [...] [facility] 03-23-2023 Procedure note [facility] 12-19-2022 Evaluation note Encounter Date Diagnosis Assessment Notes Dec, Skin candidiasis (ICD-10 - B37.2) Drink plenty fluids, get plenty of rest. Continue home medications as prescribed. Take the Diflucan as prescribed until gone. Follow-up with your family physician if no improvement in 2 to 3 days [facility] Other 08-17-2023 Discharge summary Author Eduardo bautista [facility] November 20, 2022 6:38am Note Date/Time November 20, 2022 6: 38am [facility] [address] [place] [address] Discharge Summary Signed Patient: Michelle Be MR#: [id number] : 1960 Acct:[id number] Age/Sex: 61 / F Adm Date: 3 Loc: Room: [address] [place] [address]: Gaudencio Monk MD Copies to: MD Adelaida Álvarez, SOLDERING MACHINE FEEDER-C~ Providers Date of Discharge: 11/20/22 Discharging Provider: [...] at that time.? She reports moving to [place] from [place] in 2011 and was then diagnosed with bipolar disorder at [facility] in [place], where she still follows with a therapist.? Shereports that she has been with 7 therapists in the last 9 years and is currentlycompleting EMDR with her current therapist. Past hospitalizations: Her most recent hospitalization was 5 years ago [facility] in [place] for the same feeling she is experiencing [...] worked since 2010 due to her fibromyalgia.? [facility]. 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 (insert date/time [...] signed by Eduardo Monk MD> 11/20/22 0638 [facility] Work Phone: 1(541) 345-675608-16-2023 Progress note Author Eduardo bautista [facility] November 19, 2022 6:25am Note Date/Time November 19, 2022 6: 25am [facility] [address] [place] [address] Psychiatry Progress Note Signed Patient: Michelle Be MR#: [id number] : 1960 Acct:[id number] Age/Sex: 61 / F Adm Date: 3 Loc: Room: [address] [place] [address] Type : ADM IN Attending Dr: Gaudencio [...] <Electronically signed by Eduardo Monk MD> 11/19/2225 [facility] Work Phone: 1(770) 408-185308-15-2023 Progress note Author Eduardo bautista [facility] November 18, 2022 11:01am Note Date/Time November 18, 2022 10 :11am [facility] [address] [place] [address] Psychiatry Progress Note Signed Patient: Michelle Be MR#: [id number] : 1960 Acct:[id number] Age/Sex: 61 / F Adm Date: 3 Loc: 1S Room: 8E9523-6 Type : ADM IN Attending Dr: Gaudencio [...] by requesting a schedule 2 referring to [place] for pain management specifically every 4-6 hours [...] MD DA Rangel> 11/18/22 1011 [facility] Work Phone: 1(738) 119-726508-14-2023 History and physical note Author Eduardo bautista [facility] November 17, 2022 12:48pm Note Date/Time November 17, 2022 12 :48pm [facility] [address] [place] [address] Psychiatry H&P Signed Patient: Michelle Be MR#: [id number] : 1960 Acct:[id number] Age/Sex: 61 / F Adm Date: 3 Loc: Room: [address] [place] [address] Type: ADM IN Attending Dr: Gaudencio Monk [...] at that time. She reports moving to [place] from [place] in 2011 and was then diagnosed with bipolar disorder at [facility] in [place], where she still follows with a therapist. Shereports that she has been with 7 therapists in the last 9 years and is currentlycompleting EMDR with her current therapist. Past hospitalizations: Her most recent hospitalization was 5 years ago [facility] in [place] for the same feeling she is experiencing [...] bilaterally. CN XII: Tongue protrusion midline [facility] Medical History (Updated 11/17/22 @ 10:42 by [...] <Electronically signed by Eduardo Monk MD> 11/17/22 1246 [facility] Work Phone: 1(682) 876-552903-23-2023 NoteCONSULTATION CONSULTATION DATE: 06/26/2022 To: Nurse Sheyla [...] L5-S1 facet joint injection under fluoroscopic guidance.[facility] [id number] NotePROCEDURE: XR SHOULDER RT 2V or > [...] Electronically authenticated by: KINGSLEY CLEMENTS Date: 2022-05-09 09:21[facility]01-23-2023 NotePROCEDURE: XR WRIST LT MIN 3 V [...] authenticated by: KINGSLEY CLEMENTS Date: 2022-04-28 13:31[facility] [id number] NoteCONSULTATION CONSULTATION DATE: 04/03/2022 HISTORY OF PRESENT [...] her in three months, unless otherwise indicated.[facility] [id number] NoteCONSULTATION CONSULTATION DATE: 01/02/2022 This is a [...] prescription was sent by Dr. Macedo to [facility] in [place] for the compounded cream. She needs a [...] in three months' time unless otherwise indicated.[facility] [id number] NotePROCEDURE: XR ANKLE RT MIN 3 VIEWS, [...] Electronically authenticated by: KINGSLEY CLEMENTS Date: 2022-01-01 13:11[facility]09-28-2022 NotePROCEDURE: XR ANKLE RT MIN 3 VIEWS, [...] Electronically authenticated by: KINGSLEY CLEMENTS Date: 2022-01-01 13:11[facility]08-18-2022 NotePROCEDURE: XR FOOT RT MIN 3 VIEWS HISTORY: Pain in right foot , chronic COMPARISON: XR foot right 2020 FINDINGS: BONES:No fracture, dislocation, bone lesion. Small calcaneal degenerative enthesophytes. SOFT TISSUES:No visible soft tissue swelling. EFFUSION:None visible. OTHER: Negative. IMPRESSION: 1. No acute bone abnormality or significant degenerative joint disease. Electronically authenticated by: KINGSLEY CLEMENTS Date: 2021-11-21 16:13[facility]06-30-2022 NoteCONSULTATION CONSULTATION DATE: 10/03/2021 This is a [...] patient agrees with the plan of care. [facility] Signed and Approved by: ZELDA MCDANIEL . 10/10/2021 10:22:00[facility]* Diagnosis Onset Date Resolution Status Allergies acute Bipolar 2 disorder acute Hypertension acute Morbid obesity with BMI of 45.0-49.9, adult acute OSMANY (obstructive sleep apnea) acute Restless legs syndrome acute [facility] Work Phone: Evaluation noteNo InformationNort Sernova Other Evaluation noteNo assessment information available [facility] Work Phone: Evaluation note* Diagnosis Encounter for annual wellness visit (AWV) in Medicare patient- Primary OSMANY (obstructive sleep apnea) Obstructive sleep apnea (adult) (pediatric) Chronic pain disorder Chronic pain syndrome Gastroesophageal reflux disease, unspecified whether esophagitis present Overactive bladder Hypertonicity of bladder Lower extremity edema Edema Pre-diabetes Other abnormal glucose Morbid obesity ([facility]) Morbid obesity Yeast infection of the skin [...] HealthcareHistory and physical note Author Jace Graham [facility] March 23, 2023 11:21am Note Date/Time March 23, 2023 11:21am [facility] [address] [place] [address] Gastroenterology H&P Signed Patient: Michelle Be MR#: [id number] : 1960 Acct:[id number] Age/Sex: 62 / F Adm Date: 3 Loc: Room: Type: [facility] Attending Dr: Jace Graham MD Copies [...] Jace Graham MD> 03/23/23 1121 [facility] Work Phone: History general Narrative - [...] see above surg Hospitalization History stroke 2018 [facility] Other Hospital Discharge instructions Additional Instructions Regular Diet No Activity [facility]ions[facility] Work Phone: Hospital Discharge instructions Additional [...] years. -Follow up with PCP. -Office number [phone].[facility] Work Phone: Summary Purpose Family History [...] section and content) DATE CREATED AUTHOR 02/18/2019 [facility] DATE CREATED AUTHOR AUTHOR'S ORGANIZ ATION 11/15/2021 [facility] DATE CREATED AUTHOR AUTHOR'S ORGANIZ ATION 08/16/2022 [facility] DATE CREATED AUTHOR AUTHOR'S ORGANIZ ATION 06/28/[address] [facility] DATE CREATED AUTHOR AUTHOR'S ORGANIZ ATION 07/08/2023 [facility] Specialists [facility] Care Teams (unrecognized sec tion and [...] MD Other Provider Active Adelaida Marsh , RN ORTHOPAEDICS Other Provider Active Jessica Murillo , DO [...] MD Other Provider Active Joellen Le , SOLDERING MACHINE FEEDER-C Other Provider Active Severo Yancey MD Other Provider Active Rao Webber MD Other Provider Active Yuan Shi MD Other Provider Active Delroy Ramirez MD Other Provider Active Berta Comer , DO Other Provider Active Negrito Ruiz , DO Other Provider Active Lacho Singh , DO Other Provider Active Rachana Hobson RN ORTHOPAEDICS Other Provider Active [place] , DO Other Provider Active Jeff Alvarez MD Other Provider Active Urmila Rinaldi , RN ORTHOPAEDICS Other Provider Active Bina Mayberry , RN ORTHOPAEDICS Other Provider Active Mir Bradford MD Other Provider Active Te Da Silva MD Other Provider Active Debra Landaverde , JOHANN Other Provider Active Team Status: Inactive Member Role Status Dates Adelaida Carrion Primary Care Provider Active Jace Graham MD Attending Provider Active Special Education Tutor Relationship Specialty Start Date End Date José Luis Roberts MD [address] [place] [phone] PCP - General Family Medicine 05/18/23 Adelaida Carrion NP [address] [place] [address] Referring Physician Nurse Practitioner 10/14/22 Special Education Tutor Relationship Specialty Start Date End Date José Luis Roberts MD [address] [place] [phone] PCP - General Family Medicine 05/18/23 Adelaida Carrion NP [address] [place] [phone] Referring Physician Nurse Practitioner 10/14/22 Special Education Tutor Relationship Specialty Start Date End Date José Luis Roberts MD [address] [place] [phone] PCP - General Family Medicine 05/18/23 Adelaida Carrion NP [address] [place] [phone] Referring Physician Nurse Practitioner 10/14/22 REASON FOR [...] BE BASED ON THE PRIMARY CLINICAL RECORDS. [employer] [facility]. provides no warranty or guarantee of the accuracy or completeness of information in this document.
[2023-07-11 22:07] VITALS: PULSE 67; TEMP 36.5; O2SAT 96; BMI 47.5
--- NOTE | 2023-07-11 23:29 | ED_ITS ---
HPI - URI/Sore Throat General Chief Complaint: Upper Respiratory Infection Stated Complaint: Fly Symptoms Time Seen by Provider: 07/11/23 23:14 Source: patient Limitations: no limitations History of Present Illness HPI Narrative: patient exposed to influenza. Now presents ill with body aches and cough. Diagnosed with influenza earlier today. States she was wheezing earlier but used her inhaler and it help. Low grade fever MD elicited complaint: Reports fever and cough Related Data Home Medications ?Medication ?Instructions ?Recorded ?Confirmed amlodipine 10 mg tablet (Norvasc) 10 mg PO DAILY 09/10/22 07/11/23 biotin 1 mg capsule 1 mg PO DAILY 09/10/22 07/11/23 cariprazine 4.5 mg capsule 4.5 mg PO Q24H 09/10/22 07/11/23 (Vraylar) cetirizine 10 mg tablet (24Hour 10 mg PO DAILY PRN allergy symptoms 09/10/22 07/11/23 Allergy) clonazepam 1 mg tablet 1 mg 09/10/22 duloxetine 60 mg capsule,delayed mg PO 09/10/22 release ferrous sulfate 325 mg (65 mg 325 mg PO BID 09/10/22 07/11/23 iron) tablet (FeroSul) gabapentin 600 mg tablet 1,200 mg PO DAILY 09/10/22 07/11/23 (Neurontin) gabapentin 600 mg tablet 600 mg PO DAILY 09/10/22 07/11/23 (Neurontin) losartan 50 mg tablet (Cozaar) 50 mg PO DAILY 09/10/22 07/11/23 magnesium 200 mg tablet 400 mg PO BID 09/10/22 07/11/23 melatonin 12 mg tablet 12 mg PO .HS PRN sleep 09/10/22 07/11/23 omeprazole 20 mg capsule,delayed 20 mg 09/10/22 release ropinirole 4 mg tablet mg 09/10/22 trazodone 150 mg tablet 300 mg 09/10/22 tizanidine 4 mg capsule 4 mg PO TID PRN muscle spasticity 02/18/23 07/11/23 carvedilol 6.25 mg tablet mg 07/11/23 Allergies Allergy/AdvReac Type Severity Reaction Status Date / Time levetiracetam [From [facility]] Allergy Severe Verified 07/11/23 22:09 adhesive Allergy Intermediate Blister Verified 07/11/23 22:09 Penicillins Allergy Intermediate Verified 07/11/23 22:09 tetracycline Allergy Intermediate Verified 07/11/23 22:09 milnacipran [From [facility]] AdvReac Intermediate Agitated Verified 07/11/23 22:09 prochlorperazine AdvReac Intermediate Agitated Verified 07/11/23 22:09 [From Compazine] Review of Systems ROS Status of ROS 10 or more systems reviewed and unremark able except as noted in history and below PFSH PFSH Medical History FH: bariatric surgery ?Z84.89 - Family history of other specified conditions (ICD-10) Upper back pain ?M54.9 - Dorsalgia, unspecified (ICD-10) Osteoarthritis ?M19.90 - Unspecified osteoarthritis, unspecified site (ICD-10) Neck pain ?M54.2 - Cervicalgia (ICD-10) Low back pain ?M54.50 - Low back pain, unspecified (ICD-10) Fibromyalgia ?M79.7 - Fibromyalgia (ICD-10) Bipolar 1 disorder ?F31.9 - Bipolar disorder, unspecified (ICD-10) Acid reflux ?K21.9 - Gastro-esophageal reflux disease without esophagitis (ICD-10) Obesity ?E66.9 - Obesity, unspecified (ICD-10) Sleep apnea ?G47.30 - Sleep apnea, unspecified (ICD-10) Heart murmur ?R01.1 - Cardiac murmur, unspecified (ICD-10) High cholesterol ?E78.00 - Pure hypercholesterolemia, unspecified (ICD-10) Hypertension ?I10 - Essential (primary) hypertension (ICD-10) Surgical History S/P dilatation and curettage ?Z98.890 - Other specified postprocedural states (ICD-10) H/O breast biopsy ?Z98.890 - Other specified postprocedural states (ICD-10) S/P ORIF (open reduction internal fixation) fracture ?Z98.890 - Other specified postprocedural states (ICD-10) ?Z87.81 - Personal history of (healed) traumatic fracture (ICD-10) Hx of laparoscopic gastric banding ?Z98.84 - Bariatric surgery status (ICD-10) History of tonsillectomy and adenoidectomy ?Z90.89 - Acquired absence of other organs (ICD-10) History of appendectomy ?Z90.49 - Acquired absence of other specified parts of digestive tract (ICD- 10) History of hemilaminectomy ?Z98.890 - Other specified postprocedural states (ICD-10) History of cholecystectomy ?Z90.49 - Acquired absence of other specified parts of digestive tract (ICD- 10) Previous section ?Z98.891 - History of uterine scar from previous surgery (ICD-10) Social History Smoking status: Former smoker Exam Constitutional Vital Signs, click to edit/add: Last Vital Signs Temp 97.7 F 07/11/23 22:07 Pulse 67 07/11/23 22:07 Resp 20 07/11/23 23:02 Pulse Ox 96 07/11/23 22:07 Common normals: no apparent distress, average body habitus, oriented x3, no limitations, healthy appearing, alert and well nourished Respiratory Common normals: normal respiratory effort, no retractions, no use of accessory muscles and clear to auscultation bilaterally Cardio Common normals: regular rate, regular rhythm, S1 normal heart sound and S2 normal heart sound GI Common normals: Normal to inspection, nondistended, normoactive bowel sounds present, soft to palpation and non-tender Extremity Common normals: normal to inspection and full ROM Neuro Common normals: oriented x3, CN's II-XII intact bilaterally, moves all extremities and no focal motor deficits Psych Appearance: grossly normal Course Vital Signs Vital signs: Vital Signs Temperature 97.7 F 07/11/23 22:07 Pulse Rate 67 07/11/23 22:07 Respiratory Rate 14 07/11/23 22:07 Pulse Oximetry 96 07/11/23 22:07 Temperature 97.7 F 07/11/23 22:07 Pulse Rate 67 07/11/23 22:07 Respiratory Rate 20 07/11/23 23:02 Pulse Oximetry 96 07/11/23 22:07 MDM - URI/Sore Throat MDM Narrative Medical decision making narrative: patient positive for influenza presents with low grade fever and body aches. Not short of breath. labs WNL. cxray clear. Patient given an inhaler to use for her cough and a prescription for Tamiflu Lab Data Labs: Lab Results 07/11/23 Range/Units 23:43 WBC 5.2 (4.0-11.0) 10^3/uL RBC 4.74 (4.20-5.40) 10^6/uL Hgb 13.5 (12.0-16.0) g/dL Hct 42.3 (36.0-48.0) % MCV 89.2 (81.0-99.0) fL MCH 28.5 (26.7-34.0) pg MCHC 31.9 (29.9-35.2) g/dL RDW 14.0 (11.0-15.0) % Plt Count 237 (150-450) 10^3/uL MPV 11.3 (9.5-13.5) fL Neut % (Auto) 51.8 (43.0-75.0) % Lymph % (Auto) 33.6 (20.5-60.0) % [place] % (Auto) 12.2 H (1.7-12.0) % Eos % (Auto) 1.2 (0.9-7.0) % Baso % (Auto) 1.0 (0.2-2.0) % Neut # (Auto) 2.7 (1.4-6.5) 10^3/uL Lymph # (Auto) 1.7 (1.2-3.8) 10^3/uL [place] # (Auto) 0.6 (0.3-0.8) 10^3/uL Eos # (Auto) 0.1 (0.0-0.7) 10^3/uL Baso # (Auto) 0.1 (0.0-0.1) 10^3/uL Abs Immat Gran (auto) 0.01 (0.00-0.03) 10^3/uL Imm/Tot Granulo (auto) 0.2 (0.0-0.5) % Sodium 141 (136-145) mmol/L Potassium 4.3 (3.5-5.1) mmol/L Chloride 108 H (98-107) mmol/L Carbon Dioxide 22.0 (21.0-32.0) mmol/L Anion Gap 15.3 BUN 18.0 (7.0-18.0) mg/dL Creatinine 0.94 (0.55-1.02) mg/dL Est GFR ( Amer) >60 (>=60) Est GFR (Non-Af Amer) >60 (>=60) BUN/Creatinine Ratio 19.1 Glucose 94 (74-106) mg/dL Calcium 9.2 (8.5-10.1) mg/dL Imaging Data Chest x-ray: Radiologist's impression: ITS Impressions Chest X-Ray 07/11/23 23:30 IMPRESSION: No acute cardiopulmonary abnormalities. Electronically authenticated by: TJ FIGUEROA Date: 07/12/2023 00:08 Discharge Plan Discharge Stand Alone Forms: Portal Instructions Chief Complaint: Upper Respiratory Infection Clinical Impression: Influenza Patient Disposition: Home, Self-Care Prescriptions / Home Meds: No Action clonazepam 1 mg tablet 1 mg omeprazole 20 mg capsule,delayed release(DR/EC) 20 mg ropinirole 4 mg tablet duloxetine 60 mg capsule,delayed release(DR/EC) PO Vraylar 4.5 mg capsule 4.5 mg PO Q24H biotin 1 mg capsule 1 mg PO DAILY ferrous sulfate [FeroSul] 325 mg (65 mg iron) tablet 325 mg PO BID losartan [Cozaar] 50 mg tablet 50 mg PO DAILY magnesium 200 mg tablet 400 mg PO BID melatonin 12 mg tablet 12 mg PO .HS PRN (Reason: sleep) gabapentin [Neurontin] 600 mg tablet 600 mg PO DAILY gabapentin [Neurontin] 600 mg tablet 1,200 mg PO DAILY amlodipine [Norvasc] 10 mg tablet 10 mg PO DAILY cetirizine [24Hour Allergy] 10 mg tablet 10 mg PO DAILY PRN (Reason: allergy symptoms) trazodone 150 mg tablet 300 mg tizanidine 4 mg capsule 4 mg PO TID PRN (Reason: muscle spasticity) Patient Comments: 4-8MG TID PRN carvedilol 6.25 mg tablet Print Language: Bulgarian Instructions: Influenza (ED) Additional Instructions: follow up with your doctor next week Referrals: Adelaida Carrion NP [Primary Care Provider] - 1 week
--- NOTE | 2023-07-11 23:30 | XR_ITS ---
The [address] [address] Patient Name: MICHELLE BE MRN: [id number] date: 1960 Sex: F Assigned Patient Location: ER Current Patient Location: ER Accession/Order Number: [id number] Exam Date: 07/11/2023 23:33 Report Date: 07/12/2023 00:08 At the request of: GILMER NEVES Procedure: XR chest 1V EXAM: XR chest 1V HISTORY: The patient is a 62-year-old female with cough COMPARISON: 06/15/2023. FINDINGS: The lungs are well-inflated and relatively clear with no confluent airspace infiltrates, pleural effusions, or pneumothoraces. The cardiac silhouette is at the upper limit of normal. There is no radiographic evidence of esha pulmonary edema. The trachea is relatively midline. XR/XR chest 1V IMPRESSION: No acute cardiopulmonary abnormalities. Electronically authenticated by: TJ FIGUEROA Date: 07/12/2023 00:08
[2023-07-11 23:49] LABS: Basophils Absolute Auto 0.1 10^3/uL (0.0-0.1); Eosinophils Absolute Auto 0.1 10^3/uL (0.0-0.7); Eosinophils Percent Auto 1.2 % (0.9-7.0); Hematocrit 42.3 % (36.0-48.0); Hemoglobin 13.5 g/dL (12.0-16.0); Immature Granulocytes Abs Auto 0.01 10^3/uL (0.00-0.03); Immature Granulocytes Pct Auto 0.2 % (0.0-0.5); Lymphocytes Absolute Auto 1.7 10^3/uL (1.2-3.8); Lymphocytes Percent Auto 33.6 % (20.5-60.0); Mean Corpuscular HGB Conc 31.9 g/dL (29.9-35.2); Mean Corpuscular Hemoglobin 28.5 pg (26.7-34.0); Mean Corpuscular Volume 89.2 fL (81.0-99.0); Mean Platelet Volume 11.3 fL (9.5-13.5); Monocytes Absolute Auto 0.6 10^3/uL (0.3-0.8); Monocytes Percent Auto 12.2 % (1.7-12.0); Neutrophils Absolute Auto 2.7 10^3/uL (1.4-6.5); Neutrophils Percent Auto 51.8 % (43.0-75.0); Platelet Count 237 10^3/uL (150-450); Red Blood Count 4.74 10^6/uL (4.20-5.40); White Blood Count 5.2 10^3/uL (4.0-11.0)
[2023-07-11 23:58] LABS: Anion Gap 15.3; BUN Creatinine Ratio 19.1; Calcium 9.2 mg/dL (8.5-10.1); Chloride 108 mmol/L (98-107); Estimated GFR (African America >60 (>=60); Estimated GFR (Non-African Ame >60 (>=60); Glucose 94 mg/dL (74-106); Potassium 4.3 mmol/L (3.5-5.1); Sodium 141 mmol/L (136-145)
[2023-07-12] MEDS: ALBUTEROL SULFATE 200 PUFF/6.7 GM INHALER IH (00:11)
[2023-07-12] MEDS: OSELTAMIVIR PHOSPHATE 75 MG CAPSULE PO (00:11)
== END 2023-07-12 00:29 | disposition home or self-care (01) ==
PROVIDERS: Emergency Provider Internal Medicine; PCP Nurse Practitioner
DX: J10.1 Influenza due to other identified influenza virus with other respiratory manifestations (principal); R50.9 Fever, unspecified; Z53.21 Procedure and treatment not carried out due to patient leaving prior to being seen by health care provider; M19.90 Unspecified osteoarthritis, unspecified site; M79.7 Fibromyalgia; F31.9 Bipolar disorder, unspecified; K21.9 Gastro-esophageal reflux disease without esophagitis; E66.9 Obesity, unspecified; G47.30 Sleep apnea, unspecified; E78.00 Pure hypercholesterolemia, unspecified; I10 Essential (primary) hypertension; Z98.890 Other specified postprocedural states; Z98.84 Bariatric surgery status; Z79.899 Other long term (current) drug therapy; Z90.49 Acquired absence of other specified parts of digestive tract; Z90.89 Acquired absence of other organs; Z98.891 History of uterine scar from previous surgery; Z87.891 Personal history of nicotine dependence; Z68.42 Body mass index [BMI] 45.0-49.9, adult; Z20.822 Contact with and (suspected) exposure to COVID-19
CPT/HCPCS: 36415; 71045; 80048; 85025; 87804; 87811; 94640; 99284

== ENCOUNTER 2023-07-16 19:37 | Outpatient (OUT) | payer MEDICARE, SELFPAY ==
--- OUTSIDE RECORDS SUMMARY | 2023-07-16 19:42 | XMS_ITS | CCD ---
Author Organization [facility] Care Team Providers Care Burning Supervisor Name Role Phone EBHEIM, SUKI Admitting Unavailable EBRAHEIM, SUKI Attending Unavailable AICHHOLZ, ADELAIDA Referring Unavailable AICHHOLZ, ADELAIDA Primary Care Unavailable MA Procedure Practitioner Unavailab HELADIO JacobIL Surgeon Unavailable MA Procedure Practitioner Unavailab CHAPARRITA Goncalves Surgeon Unavailable BRIDGETTE MACEDO Admitting Unavailable BRIDGETTE MACEDO Attending Unavailable AICHHOLZ, PROPERTY INSPECTOR ADELAIDA Primary Care Unavailable ZIMMER ., DR FINA Iverson Admitting Unavailable ZIMMER ., DR FINA Iverson Attending Unavailable AICHHOLZ, PROPERTY INSPECTOR ADELAIDA Primary Care Unavailable MCDANIEL ., ZELDA Consulting Unavailable LAKSHMIPATHY ., NARENDRANATH Consulting Paula vailable LAKSHMIPATHY ., NARENDRANATH Admitting Paula vailable LAKSHMIPATHY ., NARJEANARANATH Attending Paula vailable AICHHOLZ, PROPERTY INSPECTOR ADELAIDA Primary Care Unavailable LAKSHMIPATHY ., NARENDRANATH Consulting Paula vailable AICHHOLZ, PROPERTY INSPECTOR ADELAIDA Primary Care Unavailable MARKER ., DR CHAUDHRY Admitting Unavailable MARKER ., DR CHAUDHRY Attending Unavailable MARKER ., DR CHAUDHRY Consulting Unavailable AICHHOLZ, PROPERTY INSPECTOR ADELAIDA Admitting Unavailable AICHHOLZ, PROPERTY INSPECTOR ADELAIDA Attending Unavailable AICHHOLZ, PROPERTY INSPECTOR ADELAIDA Primary Care Unavailable ZIMMER ., DR FINA Iverson Admitting Unavailable ZIMMER ., DR FINA Iverson Attending Unavailable AICHHOLZ, PROPERTY INSPECTOR ADELAIDA Primary Care Unavailable MCDANIEL ., ZELDA Consulting Unavailable ZIMMER ., DR FINA Iverson Admitting Unavailable ZIMMER ., DR FINA Iverson Attending Unavailable AICHHOLZ, PROPERTY INSPECTOR ADELAIDA Primary Care Unavailable MCDANEIL ., ZELDA Consulting Unavailable AICHHOLZ, PROPERTY INSPECTOR ADELAIDA Admitting Unavailable AICHHOLZ, PROPERTY INSPECTOR ADELAIDA Attending Unavailable AICHHOLZ, PROPERTY INSPECTOR ADELAIDA Primary Care Unavailable AICHHOLZ, PROPERTY INSPECTOR ADELAIDA Consulting Unavailable AICHHOLZ, PROPERTY INSPECTOR ADELAIDA Admitting Unavailable AICHHOLZ, PROPERTY INSPECTOR ADELAIDA Attending Unavailable AICHHOLZ, PROPERTY INSPECTOR ADELAIDA Primary Care Unavailable AICHHOLZ, PROPERTY INSPECTOR ADELAIDA Consulting Unavailable MISC, DR COTE Admitting Unavailable MISC, DR COTE Attending Unavailable AICHHOLZ, PROPERTY INSPECTOR ADELAIDA Primary Care Unavailable AICHHOLZ, PROPERTY INSPECTOR ADELAIDA Consulting Unavailable PRITESHC, DR COTE Consulting Unavailable STARR, DR KINGSLEY Atkins Consulting Unavailable ZIMMER ., DR FINA Iverson Admitting Unavailable ZIMMER ., DR FINA Iverson Attending Unavailable AICHHOLZ, PROPERTY INSPECTOR ADELAIDA Primary Care Unavailable MCDANIEL ., ZELDA Consulting Unavailable ZIMMER ., DR FINA Iverson Admitting Unavailable ZIMMER ., DR FINA Iverson Attending Unavailable AICHOLZ, PROPERTY INSPECTOR ADELAIDA Primary Care Unavailable ZIMMER ., DR FINA Iverson Consulting Unavailable OMID LAY Consulting Unavailable ZIMMER ., DR FINA Iverson Admitting Unavailable ZIMMER ., DR FINA Iverson Attending Unavailable AICHOLZ, PROPERTY INSPECTOR ADELAIDA Primary Care Unavailable MCDANIEL ., ZELDA Consulting Unavailable AICHHOLZ, PROPERTY INSPECTOR ADELAIDA Primary Care Unavailable HALKER ., ARIAN Admitting Unavailable HALKER ., ARIAN Attending Unavailable LAKSHMIPATHY ., NARENDRANATH Consulting Paula vailable HALKER ., ARIAN Consulting Unavailable LAKSHMIPATHY ., NARENDRANATH Admitting Paula vailable LAKSHMIPATHY ., NARENDRANATH Attending Paula vailable AICHHOLZ, PROPERTY INSPECTOR ADELAIDA Primary Care Unavailable LAKSHMIPATHY ., NARENDRANATH Consulting Paula vailable AICHHOLZ, PROPERTY INSPECTOR ADELAIDA Admitting Unavailable AICHHOLZ, PROPERTY INSPECTOR ADELAIDA Attending Unavailable AICHHOLZ, PROPERTY INSPECTOR ADELAIDA Primary Care Unavailable AICHHOLZ, PROPERTY INSPECTOR ADELAIDA Consulting Unavailable BRIDGETTE MACEDO Admitting Unavailable BRIDGETTE MACEDO Attending Unavailable AICHHOLZ, PROPERTY INSPECTOR ADELAIDA Primary Care Unavailable STARR, DR KINGSLEY Atkins Consulting Unavailable BRIDGETTE MACEDO Consulting Unavailable PURA, GILMER Admitting Unavailable PURA, GILMER Attending Unavailable PURA, GILMER Consulting Unavailable AICHHOLZ, PROPERTY INSPECTOR ADELAIDA Primary Care Unavailable AICHHOLZ, PROPERTY INSPECTOR ADELAIDA Primary Care Unavailable DR WILLI RINALDI Admitting Unavailable DR WILLI RINALDI Attending Unavailable DEEJAY, DR WILLI Atkins Consulting Unavailable AICHHOLZ, PROPERTY INSPECTOR ADELAIDA Primary Care Unavailable ALMAZ ., DANNY Admitting Unavailable ALMAZ ., DANNY Attending Unavailable DR KINGSLEY CLEMENTS Consulting Unavailable ALMAZ ., DANNY Consulting Unavailable LAKSHMIPATHY ., NARENDRANATH Admitting Paula vailable LAKSHMIPATHY ., NARENDRANATH Attending Paula vailable AICHHOLZ, PROPERTY INSPECTOR ADELAIDA Primary Care Unavailable AICHHOLZ, PROPERTY INSPECTOR ADELAIDA Admitting Unavailable AICHHOLZ, PROPERTY INSPECTOR ADELAIDA Attending Unavailable AICHHOLZ, PROPERTY INSPECTOR ADELAIDA Primary Care Unavailable AICHHOLZ, PROPERTY INSPECTOR ADELAIDA Admitting Unavailable AICHHOLZ, PROPERTY INSPECTOR ADELAIDA Attending Unavailable AICHHOLZ, PROPERTY INSPECTOR ADELAIDA Primary Care Unavailable AICHHOLZ, PROPERTY INSPECTOR ADELAIDA Consulting Unavailable ZIEBER, DR KINGSLEY Atkins Consulting Unavailable HALKER ., ARIAN Admitting Unavailable HALKER ., ARIAN Attending Unavailable AICHHOLZ, PROPERTY INSPECTOR ADELAIDA Primary Care Unavailable Aichholz, Adelaida J Primary Care Provider MD Gaudencio Monk Admit Provider MD Gaudencio Monk Attending Provider [phone] Dariel RN Andreina Other Provider Unavailable JOHANN Pina Other Provider Unavailable JOHANN Hurtado Other Provider Unavailable JOHANN Crooks Other Provider Unavailable JOHANN Mejias Other Provider Unavailable Judy RN Elzbieta Other Provider Unavailable MD Walker Pringle Other Provider ROSS Marsh Other Provider DO Jessica Murillo Other Provider MD Obdulio Bragg Other Provider DO Joon Cristina Other Provider [phone] MD Torin Robert Other Provider MD Dawn [...] Obdulio Bragg Consulting Unavailable Joon Cristina Consulting UnavailoTrin Beavers Consulting Unavailable Dawn Barrera Consulting Unavailable Mari Herrera Consulting UnavailSofi Marques Consulting Unavailable Sharad Gallegos Consulting Unavailable Aby Cain Consulting Unavailable Hillary Carrera Consulting Unavailable Julio César Mckeon Consulting Unavailable Valentine Mak Consulting Unavailable Raymond Strong Consulting Unavailable Joellen Le Consulting Unavailable DoSevero navarro Consulting Unavailab Rao Tompkins Consulting Unavailable Yuan Sih Consulting Unavailable Delroy Ramirez Consulting Unavailable Berta [...] adverse reactions (disorder) 04-06-19 14 rash [facility] (3 sources) levETIRAcetam; Translations: [KEPPRA] Drug Allergy 07-02-19 19 [facility] (3 sources) milnacipran; Translations: [SAVELLA] Drug Allergy 03-14-20 13 [facility] (1 source) Penicillin; Translations: [PENICILLIN] Drug Allergy 01-16-20 18 [facility] (5 sources) Prochlorperazin e; Translations: [COMPAZINE] Drug Allergy 03-14-20 13 agitation [facility] (12 sources) Tetracycline; Translations: [TETRACYCLINE] Drug Allergy 04-06-19 13 Hives, Unknown [facility] (4 sources) Penicillins Drug allergy (disorder) 04-06-19 13 Unknown Reaction The [facility] (9 sources) levETIRAcetam; Translations: [levetiracetam] Drug Allergy 12-13-19 22 Hallucinations , Other [facility] (9 sources) milnacipran; Translations: [milnacipran] Drug Allergy 12-13-19 22 hives, Hallucinations , Other, Unknown [facility] (7 sources) Prochlorperazin e; Translations: [prochlorperazi ne] Drug Allergy 12-13-19 22 Unknown, Other [facility] (2 sources) Penicillin G Drug Allergy as a child [facility] Other (2 sources) Tetracaine Drug Allergy Unknown [facility] Other (4 sources) Penicillins Drug Intolerance 12-13-19 22 Anaphylaxis [facility] (4 sources) Other Propensity to adverse reactions 12-13-19 22 Other [facility] (4 sources) Wound Dressing Adhesive Drug Allergy 09-20-19 23 Rash, Unknown [facility] (1 source) Penicillin Drug Allergy 12-20-[address] [facility] (1 source) Penicillins Drug allergy (disorder) 03-23-[address] [facility] (1 source) Tetracaine Drug Allergy 12-20-[address] [facility] Repository Medications Current Medications Medication [...] (BARIATRIC MULTIVITAMINS/IRON PO) Bariatric Multivitamins/Iron 0 Active Ciozqwogukdp-Wqd-Kcel-Fa- Vit K (Bariatric Multivitamins) 45 mg iron- 800 mcg-120 mcg Capsule (2 sources) Start: 11-17-2022 take 1 capsule by mouth once daily Biumsfhtharq-Aiy-Dqph-Fa -Vit K (Bariatric Multivitamins) 45 mg iron- 800 mcg-120 mcg Capsule Active 1 CAP PO Daily November 16, 2022 11:00pm Start: 11-17-[address] 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 Benzodiazepines Screen Ql (U )Ordered By: Jace Graham on 03-23-2023 Benzodiazepines Ql (U) Negative Negative [facility] Benzoylecgonine [Presence] i n Urine by Screen methodOrdered By: Jace Graham on 03-23-2023 Benzoylecgonine Screen Ql (U) Negative Negative [facility] Cannabinoids [Presence] in U rine by Screen methodOrdered By: Jace Graham on 03-23-2023 Cannabinoids Screen Ql (U) Negative Negative [facility] Comment on above: These are unconfirme d results and should not be used for legal purposes. Drug Cut-Off Concentration: AMPH 1000 ng/mL ELKIN 200 ng/mL ATIYA 200 ng/mL COCM 300 ng/mL OP 300 ng/mL PCP 25 ng/mL THC 20 ng/mL Drug Screen,Urineon 03-23-20 Amphetamine Screen,Urine Negative Normal Negative [facility] Comment on above: Performed By: #### U RDS #### [address] Barbiturate Screen,Urine Negative Normal Negative [facility] Comment on above: Performed By: #### U RDS #### [address] Benzodiazepines Screen,Urine Negative Normal Negative [facility] Comment on above: Performed By: #### U RDS #### [address] Cannabinoid Screen,Urine Negative Normal Negative [facility] Comment on above: Result Comment: Thes e are unconfirmed results and should not be used for legal purposes. Drug Cut-Off Concentration: AMPH 1000 ng/mL ELKIN 200 ng/mL ATIYA 200 ng/mL COCM 300 ng/mL OP 300 ng/mL PCP 25 ng/mL THC 20 ng/mL PERFORMED BY: [place] [id number] PATHOLOGIST BUNG DROPPER AN CURRY M.D. Performed By: #### U RDS #### [place] [address] [place] Cocaine Screen,Urine Negative Normal Negative [facility] Comment on above: Performed By: #### U RDS #### [place] [address] [place] Opiate Screen,Urine Negative Normal Negative [facility] Comment on above: Performed By: #### U RDS #### [address] Phencyclidine Screen,Urine Negative Normal Negative [facility] Comment on above: Performed By: #### U RDS #### [facility] [address] Opiates [Presence] in Urine by Screen methodOrdered By: Jace Graham on 03-23-2023 Opiates Screen Ql (U) Negative Negative [facility] Phencyclidine Screen Ql (U)O rdered By: Jace Graham on 03-23-2023 Phencyclidine Ql (U) Negative Negative [facility] Cholesterol [Mass/volume] in Serum or PlasmaOrdered By: Eduardo Monk on 11-18-2022 Cholesterol [Mass/Vol] 159 mg/dL 140-200 [facility] Comment on above: Chol less than 200 m g/dl low riskChol 201-239 mg/dl borderline riskChol 240 mg/dl and greater high risk Cholesterol in LDL Calc [Mas s/Vol]Ordered By: Eduardo Monk on 11-18-2022 Cholesterol in LDL [Mass/Vol] 84 mg/dL 0-[address] [facility] Comment on above: LDL ATP III CLASSIFI CATIONLDL less than 100 mg/dL OptimalLDL 100-129 mg/dL Near or above optimalLDL 130-159 mg/dL Borderline highLDL 160-189 mg/dL HighLDL greater than 189 mg/dL Very high Cholesterol in VLDL Calc [Ma ss/Vol]Ordered By: Eduardo Monk on 11-18-2022 Cholesterol in VLDL [Mass/Vol] 28 mg/dL [facility] Lipid Panelon 11-18-2022 Cholesterol [Mass/Vol] 159 mg/dL Normal 140-200 [facility] Comment on above: Order Comment: teri barney to tomorrow morning Result Comment: Chol less than 200 mg/dl low risk Chol 201-239 mg/dl borderline risk Chol 240 mg/dl and greater high risk Performed By: #### L IPID #### [facility] [address] [id number] [facility] Cholesterol in HDL [Mass/Vol] 46 mg/dL Normal 23-[address] [facility] Comment on above: Order Comment: teri barney to tomorrow morning Result Comment: HDL CHOL ATP-III CLASSIFICATION Cardiovascular Risk HDL > or equal to 60 mg/dL LOW HDL < 40 mg/dL HIGH Performed By: #### L IPID #### [facility] [address] [id number] [facility] Cholesterol.total/Chol esterol in HDL [Mass ratio] 3.5 {ratio} Normal <5.[address] [facility] Comment on above: Order Comment: teri barney to tomorrow morning Result Comment: PERF ORMED BY: [place] [id number] PATHOLOGIST BUNG DROPPER AN CURRY M.D. Performed By: #### L IPID #### [facility] [address] LDL Cholesterol,Calculated 84 mg/dL Normal 0-[address] [facility] Comment on above: Order Comment: teri barney to tomorr morning Result Comment: LDL ATP III CLASSIFICATION LDL less than 100 mg/dL Optimal LDL 100-129 mg/dL Near or above optimal LDL 130-159 mg/dL Borderline high LDL 160-189 mg/dL High LDL greater than 189 mg/dL Very high Performed By: #### L IPID #### [facility] [address] Triglyceride w/Reflex 144 mg/dL Normal 0-149 [facility] Comment on above: Order Comment: teri barney to tomorr morning Result Comment: TRIG ATP III CLASSIFICATION TRIG less than 150 mg/dL Normal TRIG 150-199 mg/dL Borderline high TRIG 200-500 mg/dL High TRIG greater than 500 mg/dL Very high Standard traceable to the Center for Disease Conrtrol and Prevention (CDC) test method. Performed By: #### L IPID #### [facility] [address] [place] [id number] [facility] VLDL CHOLESTEROL 28 mg/dL Normal [facility] Comment on above: Order Comment: teri barney to orr morning Performed By: #### L IPID #### [facility] [address] [id number] [facility] Serum or plasma high density lipoprotein (HDL) cholesterol measurementOrdered By: Eduardo Monk on 11-18-2022 Cholesterol in HDL [Mass/Vol] 46 mg/dL 23-[address] [facility] Comment on above: HDL CHOL ATP-III CLA SSIFICATION Cardiovascular RiskHDL > or equal to 60 mg/dL LOWHDL < 40 mg/dL HIGH Serum or plasma total choles terol/high density lipoprotein (HDL) cholesterol mass ratOrdered By: Eduardo Monk on 11-18-2022 Cholesterol.total/Chol esterol in HDL [Mass ratio] 3.5 {ratio} <5.[address] [facility] Thyroid Stimulating Hormoneo n 11-18-2022 TSH Qn 2.13 m[IU]/L Normal 0.45-5.[address] [facility] Comment on above: Performed By: #### T SH3, [id number] #### [address] Thyrotropin [Units/volume] i n Serum or PlasmaOrdered By: Eduardo Monk on 11-18-2022 TSH Qn 2.13 m[IU]/L 0.45-5.[address] [facility] Triglyceride [Mass/volume] i n Serum or PlasmaOrdered By: Eduardo Monk on 11-18-2022 Triglyceride [Mass/Vol] 144 mg/dL 0-[address] [facility] Comment on above: TRIG ATP III CLASSIF ICATIONTRIG less than 150 mg/dL NormalTRIG 150-199 mg/dL Borderline highTRIG 200-500 mg/dL High TRIG greater than 500 mg/dL Very highStandard traceable to the Center for Disease Conrtrol and Prevention (CDC) test method. Vitamin D 25 Hydroxy Totalon 11-18-2022 Vitamin D 25 Hydroxy Total 50.4 ng/mL Normal 30-[address] [facility] Comment on above: Result Comment: SKYLER MIN D STATUS 25(OH)VITAMIN D RANGE (ng/mL) Deficient <20 Insufficient 20 to <30 Sufficient 30 to 100 Reference: Bin MF,Lakshmi NC, Cristian SMART, et al. Evaluation,treatment, and prevention of vitamin D deficiency; an Endocrine Society clinical practice guideline. JCEM. 2010; 96(7):1911-30. PERFORMED BY: [facility] [address] [place] [address] PATHOLOGIST BUNG DROPPER AN CURRY M.D. Performed By: #### T SH3, [id number] #### [facility] [address] Vitamin D+Metabolites [Mass/ volume] in Serum or PlasmaOrdered By: Eduardo Monk on 11-18-2022 Vitamin D+Metabolites [Mass/Vol] 50.4 ng/mL 30-[address] [facility] Comment on above: VITAMIN D STATUS 25( [place])VITAMIN D RANGE (ng/mL) Deficient <20 Insufficient 20 to <30Sufficient 30 to 100Reference: Bin MF,Lakshmi NC, Cristian SMART, et al. Evaluation,treatment, and prevention of vitamin D deficiency; an Endocrine Society clinical practice guideline. JCEM. 2010; 96(7):1911-30. CBC AUTO DIFFon 07-25-2022 BASO # 0.1 103/ul Normal 0.0-0.1 [facility] Comment on above: Performed By: #### A 1C #### [facility] [address] [place] [address] Dr. Bebeto Alvarado Basophils/100 WBC (Bld) 0.6 % Normal 0.2-2.0 [facility] Comment on above: Performed By: #### A 1C #### [facility] [address] [place] [address] Dr. Bebeto Alvarado EO # 0.2 103/ul Normal 0.0-0.7 [facility] Comment on above: Performed By: #### A 1C #### [facility] [address] [address] [address] Bebeto Alvarado Eosinophils/100 WBC (Bld) 2.3 % Normal 0.9-7.0 [facility] Comment on above: Performed By: #### A 1C #### [facility] [address] [address] [address] Bebeto Alvarado Erythrocyte distribution width (RBC) [Ratio] 13.8 % Normal 11.0-15.0 [facility] Comment on above: Performed By: #### A 1C #### [facility] [address] [address] [address] Bebeto Alvarado Hematocrit (Bld) [Volume fraction] 41.2 % Normal 36.0-48.0 [facility] Comment on above: Performed By: #### A 1C #### [facility] [address] [place] [address] Dr. Bebeto Alvarado Hemoglobin (Bld) [Mass/Vol] 13.2 g/dL Normal 12.0-16.0 [facility] Comment on above: Performed By: #### A 1C #### [facility] [address] [place] [address] Dr. Bebeto Alvarado IG # 0.03 10e3/ul Normal 0.00-0.03 [facility] Comment on above: Performed By: #### A 1C #### [facility] [address] [place] [address] Dr. Bebeto Alvarado IG % 0.4 % Normal 0.0-0.5 [facility] Comment on above: Performed By: #### A 1C #### [facility] [address] [place] [address] Dr. Bebeto Alvarado LYMPH # 2.1 103/ul Normal 1.2-3.8 [facility] Comment on above: Performed By: #### A 1C #### [facility] [address] [place] [address] Dr. Bebeto Alvarado Lymphocytes/100 WBC (Bld) 25.9 % Normal 20.5-60.0 [facility] Comment on above: Performed By: #### A 1C #### [facility] [address] [place] [address] Dr. Bebeto Alvarado MANUAL DIFF REQ NO Normal [facility] Comment on above: Performed By: #### A 1C #### [facility] [address] [place] [address] Dr. Bebeto Alvarado MCH (RBC) [Entitic mass] 28.0 pg Normal 26.7-34.0 [facility] Comment on above: Performed By: #### A 1C #### [facility] [address] [place] [address] Dr. Bebeto Alvarado MCHC (RBC) [Mass/Vol] 32.0 g/dL Normal 29.9-35.2 [facility] Comment on above: Performed By: #### A 1C #### [facility] [address] [place] [address] Dr. Bebeto Alvarado MCV (RBC) [Entitic vol] 87.5 fL Normal 81.0-99.0 [facility] Comment on above: Performed By: #### A 1C #### [facility] [address] [place] [address] Dr. Bebeto Alvarado MONO # 0.5 103/ul Normal 0.3-0.8 [facility] Comment on above: Performed By: #### A 1C #### [facility] [address] [place] [address] Dr. Bebeto Alvarado Monocytes/100 WBC (Bld) 6.6 % Normal 1.7-12.0 [facility] Comment on above: Performed By: #### A 1C #### [facility] [address] [place] [address] Dr. Bebeto Alvarado NEUT # 5.1 103/ul Normal 1.4-6.5 [facility] Comment on above: Performed By: #### A 1C #### [facility] [address] [place] [address] Dr. Bebeto Alvarado Neutrophils/100 WBC (Bld) 64.2 % Normal 43.0-75.0 [facility] Comment on above: Performed By: #### A 1C #### [facility] [address] [place] [address] Dr. Bebeto Alvarado Platelet mean volume (Bld) [Entitic vol] 11.2 fL Normal 9.5-13.5 [facility] Comment on above: Performed By: #### A 1C #### [facility] [address] [place] [address] Dr. Bebeto Alvarado PLT 252 103/ul Normal 150-450 [facility] Comment on above: Performed By: #### A 1C #### [facility] [address] [place] [address] Dr. Bebeto Alvarado RBC 4.71 106/ul Normal 4.20-5.40 [facility] Comment on above: Performed By: #### A 1C #### [facility] [address] [address] [address] Bebeto Alvarado WBC 8.0 103/ul Normal 4.0-11.0 [facility] Comment on above: Performed By: #### A 1C #### [facility] [address] [address] [address] Bebeto Alvarado GLYCOHEMOGLOBIN A1Con 2022 ADA RECOMMENDATION SEE BELOW Normal [facility] Comment on above: Result Comment: ADA RECOMMENDED LIMIT 4.0 - 6.0 ADA THERAPEUTIC TARGET < 7.0 ACTION SUGGESTED > 7.0 Performed By: #### A 1C #### [facility] [address] [place] [address] Dr. Bebeto Alvarado Glucose [Mass/Vol] 114 mg/dL Normal [facility] Comment on above: Performed By: #### A 1C #### [facility] [address] [address] [address] Bebeto Alvarado HbA1c (Bld) [Mass fraction] 5.6 % Normal 4.5-6.2 [facility] Comment on above: Performed By: #### A 1C #### [facility] [address] [place] [address] Dr. Bebeto Alvarado IRONon 07-25-2022 Iron [Mass/Vol] 60.0 ug/dL Normal 50.0-170.0 [facility] Comment on above: Performed By: #### V ITB12, IRON #### [facility] [address] [place] [address] Dr. Bebeto Alvarado LIPID PROFILEon 07-25-2022 CHOL-HDL RATIO NORM SEE BELOW Normal [facility] Comment on above: Result Comment: 3.3 - 4.4 LOW RISK 4.4 - 7.1 AVERAGE RISK 7.1 - 11.0 MODERATE RISK >11.0 HIGH RISK Performed By: #### C MP, LIPID #### [facility] [address] [place] [address] Dr. Bebeto Alvarado Cholesterol [Mass/Vol] 144 mg/dL Normal <=200 [facility] Comment on above: Performed By: #### C MP, LIPID #### [facility] [address] [address] Dr. Bebeto Alvarado Cholesterol in HDL [Mass/Vol] 39 mg/dL Critically low 40-60 [facility] Comment on above: Performed By: #### C MP, LIPID #### [facility] [address] [address] [address] Bebeto Alvarado Cholesterol in LDL [Mass/Vol] 74.6 mg/dL Normal [facility] Comment on above: Performed By: #### C MP, LIPID #### [facility] [address] [address] [address] Bebeto Alvarado Cholesterol.total/Chol esterol in HDL [Mass ratio] 3.7 {ratio} Normal [facility] Comment on above: Performed By: #### C MP, LIPID #### [facility] [address] [address] [address] Bebeto Alvarado HDL NORMAL > or = 60 mg/dl - LO W CARDIOVASCULAR RISK <40 mg/dl - HIGH CARDIOVASCULAR RISK Normal [facility] Comment on above: Performed By: #### C MP, LIPID #### [facility] [address] [address] [address] Bebeto Alvarado LDL CALC NORMAL SEE BELOW Normal [facility] Comment on above: Result Comment: <100 mg/dl OPTIMAL 100 - 129 mg/dl NEAR OR ABOVE OPTIMAL 130 - 159 mg/dl BORDERLINE HIGH 160 - 189 mg/dl HIGH >190 mg/dl VERY HIGH Performed By: #### C MP, LIPID #### [facility] [address] [address] [address] Bebeto Alvarado Triglyceride [Mass/Vol] 152 mg/dL Critically high <=150 [facility] Comment on above: Performed By: #### C MP, LIPID #### [facility] [address] [address] [address] Bebeto Alvarado VLDL CALC 30.4 mg/dL Normal [facility] Comment on above: Performed By: #### C MP, LIPID #### [facility] [address] [address] [address] Bebeto Alvarado PROF 14(COMP METB)on 023 Albumin [Mass/Vol] 3.7 g/dL Normal 3.4-5.0 [facility] Comment on above: Performed By: #### C MP, LIPID #### [facility] [address] [address] [address] Bebeto Alvarado Albumin/Globulin [Mass ratio] 0.9 {ratio} Normal [facility] Comment on above: Performed By: #### C MP, LIPID #### [facility] [address] [place] [address] Dr. Bebeto Alvarado ALP [Catalytic activity/Vol] 90 U/L Normal 46-116 [facility] Comment on above: Performed By: #### C MP, LIPID #### [facility] [address] [place] [address] Dr. Bebeto Alvarado ALT [Catalytic activity/Vol] 38 U/L Normal 14-59 [facility] Comment on above: Performed By: #### C MP, LIPID #### [facility] [address] [place] [address] Dr. Bebeto Alvarado Anion gap [Moles/Vol] 12.1 mmol/L Normal [facility] Comment on above: Performed By: #### C MP, LIPID #### [facility] [address] [place] [address] Dr. Bebeto Alvarado AST [Catalytic activity/Vol] 26 U/L Normal 15-37 [facility] Comment on above: Performed By: #### C MP, LIPID #### [facility] [address] [place] [address] Dr. Bebeto Alvarado Bilirubin [Mass/Vol] 0.3 mg/dL Normal 0.2-1.0 [facility] Comment on above: Performed By: #### C MP, LIPID #### [facility] [address] [address] [address] Bebeto Alvarado Calcium [Mass/Vol] 9.3 mg/dL Normal 8.5-10.1 [facility] Comment on above: Performed By: #### C MP, LIPID #### [facility] [address] [address] [address] Bebeto Alvarado Chloride [Moles/Vol] 107 mmol/L Normal 98-107 [facility] Comment on above: Performed By: #### C MP, LIPID #### [facility] [address] [place] [address] Dr. Bebeto Alvarado CO2 [Moles/Vol] 27.9 mmol/L Normal 21.0-32.0 [facility] Comment on above: Performed By: #### C MP, LIPID #### [facility] [address] [place] [address] Dr. Bebeto Alvarado Creatinine [Mass/Vol] 0.95 mg/dL Normal 0.55-1.02 [facility] Comment on above: Performed By: #### C MP, LIPID #### [facility] [address] [place] [address] Dr. Bebeto Alvarado EGFR-AF SRI LANKAN >60 Normal >=60 [facility] Comment on above: Performed By: #### C MP, LIPID #### [facility] [address] [place] [address] Dr. Bebeto Alvarado EGFR-NON AF SRI LANKAN 60 mL/min/1.73m2 Normal >=60 [facility] Comment on above: Performed By: #### C MP, LIPID #### [facility] [address] [place] [address] Dr. Bebeto Alvarado Globulin (S) [Mass/Vol] 3.9 g/dL Normal [facility] Comment on above: Performed By: #### C MP, LIPID #### [facility] [address] [place] [address] Dr. Bebeto Alvarado Glucose [Mass/Vol] 108 mg/dL Critically high 74-106 [facility] Comment on above: Performed By: #### C MP, LIPID #### [facility] [address] [place] [address] Dr. Bebeto Alvarado Potassium [Moles/Vol] 4.0 mmol/L Normal 3.5-5.1 [facility] Comment on above: Performed By: #### C MP, LIPID #### [facility] [address] [place] [address] Dr. Bebeto Alvarado Protein [Mass/Vol] 7.6 g/dL Normal 6.4-8.2 [facility] Comment on above: Performed By: #### C MP, LIPID #### [facility] [address] [place] [address] Dr. Bebeto Alvarado Sodium [Moles/Vol] 143 mmol/L Normal 136-145 [facility] Comment on above: Performed By: #### C MP, LIPID #### [facility] [address] [place] [address] Dr. Bebeto Alvarado Urea nitrogen [Mass/Vol] 15.0 mg/dL Normal 7.0-18.0 [facility] Comment on above: Performed By: #### C MP, LIPID #### [facility] [address] [place] [address] Dr. Bebeto Alvarado Urea nitrogen/Creatinine [Mass ratio] 15.8 mg/mg Normal [facility] Comment on above: Performed By: #### C MP, LIPID #### [facility] [address] [place] [address] Dr. Bebeto Alvarado UA RANDOM W/MICROSCOPICon BACTERIA NONE SEEN Normal NONE SEEN [facility] Comment on above: Performed By: #### A 1C #### [facility] [address] [place] [address] Dr. Bebeto Alvarado Bilirubin Ql (U) Negative Normal NEGATIVE [facility] Comment on above: Performed By: #### A 1C #### [facility] [address] [place] [address] Dr. Bebeto Alvarado CAST NONE SEEN Normal NONE SEEN [facility] Comment on above: Performed By: #### A 1C #### [facility] [address] [place] [address] Dr. Bebeto Alvarado Clarity (U) CLEAR Normal CLEAR [facility] Comment on above: Performed By: #### A 1C #### [facility] [address] [place] [address] Dr. Bebeto Alvarado Color (U) YELLOW Normal YELLOW [facility] Comment on above: Performed By: #### A 1C #### [facility] [address] [place] [address] Dr. Bebeto Alvarado Crystals LM Nom (Urine sed) NONE SEEN Normal NONE SEEN [facility] Comment on above: Performed By: #### A 1C #### [facility] [address] [place] [address] Dr. Bebeto Alvarado Epithelial cells LM Ql (Urine sed) NONE SEEN Normal NONE SEEN /RARE [facility] Comment on above: Performed By: #### A 1C #### [facility] [address] [place] [address] Dr. Bebeto Alvarado Glucose Ql (U) Negative Normal NEGATIVE The [facility] Comment on above: Performed By: #### A 1C #### [facility] [address] [place] [address] Dr. Bebeto Alvarado Hemoglobin Ql (U) Negative Normal NEGATIVE [facility] Comment on above: Performed By: #### A 1C #### [facility] [address] [place] [address] Dr. Bebeto Alvarado Ketones Ql (U) Negative Normal NEGATIVE [facility] Comment on above: Performed By: #### A 1C #### [facility] [address] [place] [address] Dr. Bebeto Alvarado LEUKOCYTES Negative Normal NEGATIVE [facility] Comment on above: Performed By: #### A 1C #### [facility] [address] [place] [address] Dr. Bebeto Alvarado MUCOUS NONE SEEN Normal NONE SEEN [facility] Comment on above: Performed By: #### A 1C #### [facility] [address] [place] [address] Dr. Bebeto Alvarado Nitrite Ql (U) Negative Normal NEGATIVE [facility] Comment on above: Performed By: #### A 1C #### [facility] [address] [place] [address] Dr. Bebeto Alvarado pH (U) 5.5 [pH] Normal 5-9 [facility] Comment on above: Performed By: #### A 1C #### [facility] [address] [place] [address] Dr. Bebeto Alvarado RBC NONE SEEN Abnormal 0-2 [facility] Comment on above: Performed By: #### A 1C #### [facility] [address] [place] [address] Dr. Bebeto Alvarado SPEC GRAVITY 1.030 Abnormal 1.005-<=1.02 5 [facility] Comment on above: Performed By: #### A 1C #### [facility] [address] [place] [address] Dr. Bebeto Alvarado UA PROTEIN Negative Normal NEGATIVE/ TRACE [facility] Comment on above: Performed By: #### A 1C #### [facility] [address] [place] [address] Dr. Bebeto Alvarado Urobilinogen Qn (U) 0.2 {Katerin'U}/dL Normal 0.2 - 1. 0 [facility] Comment on above: Performed By: #### A 1C #### [facility] [address] [place] [address] Dr. Bebeto Alvarado WBC NONE SEEN Normal NONE SEEN [facility] Comment on above: Performed By: #### A 1C #### [facility] [address] [place] [address] Dr. Bebeto Alvarado VITAMIN B12on 07-25-2022 Cobalamin (Vitamin B12) [Mass/Vol] 1684.0 pg/mL Critically high 193.0-986.0 [facility] Comment on above: Performed By: #### V ITB12, IRON #### [facility] [address] [place] [address] Dr. Bebeto Alvarado PROF CHEM 8 (BAS METB)on Anion gap [Moles/Vol] 12.2 mmol/L Normal [facility] Comment on above: Performed By: #### B MP #### [facility] [address] [place] [address] Dr. Bebeto Alvarado Calcium [Mass/Vol] 8.9 mg/dL Normal 8.5-10.1 [facility] Comment on above: Performed By: #### B MP #### [facility] [address] [place] [address] Dr. Bebeto Alvarado Chloride [Moles/Vol] 105 mmol/L Normal 98-107 [facility] Comment on above: Performed By: #### B MP #### [facility] [address] [address] [address] Bebeto Alvarado CO2 [Moles/Vol] 29.6 mmol/L Normal 21.0-32.0 [facility] Comment on above: Performed By: #### B MP #### [facility] [address] [address] [address] Bebeto Alvarado Creatinine [Mass/Vol] 0.95 mg/dL Normal 0.55-1.02 [facility] Comment on above: Performed By: #### B MP #### [facility] [address] [address] [address] Bebeto Alvarado EGFR-AF SRI LANKAN >60 Normal >=60 [facility] Comment on above: Performed By: #### B MP #### [facility] [address] [address] [address] Bebeto Alvarado EGFR-NON AF SRI LANKAN 60 mL/min/1.73m2 Normal >=60 [facility] Comment on above: Performed By: #### B MP #### [facility] [address] [address] [address] Bebeto Alvarado Glucose [Mass/Vol] 101 mg/dL Normal 74-106 [facility] Comment on above: Performed By: #### B MP #### [facility] [address] [address] [address] Bebeto Alvarado Potassium [Moles/Vol] 3.8 mmol/L Normal 3.5-5.1 [facility] Comment on above: Performed By: #### B MP #### [facility] [address] [address] [address] Bebeto Alvarado Sodium [Moles/Vol] 143 mmol/L Normal 136-145 [facility] Comment on above: Performed By: #### B MP #### [facility] [address] [place] [address] Dr. Bebeto Alvarado Urea nitrogen [Mass/Vol] 16.0 mg/dL Normal 7.0-18.0 [facility] Comment on above: Performed By: #### B MP #### [facility] [address] [place] [address] Dr. Bebeto Alvarado Urea nitrogen/Creatinine [Mass ratio] 16.8 mg/mg Normal [facility] Comment on above: Performed By: #### B MP #### [facility] [address] [place] [address] Dr. Bebeto Alvarado CBC AUTO DIFFon 11-21-2021 BASO # 0.1 103/ul Normal 0.0-0.1 [facility] Comment on above: Performed By: #### A 1C #### [facility] [address] [place] [address] Dr. Bebeto Alvarado Basophils/100 WBC (Bld) 1.0 % Normal 0.2-2.0 [facility] Comment on above: Performed By: #### A 1C #### [facility] [address] [place] [address] Dr. Bebeto Alvarado EO # 0.2 103/ul Normal 0.0-0.7 [facility] Comment on above: Performed By: #### A 1C #### [facility] [address] [place] [address] Dr. Bebeto Alvarado Eosinophils/100 WBC (Bld) 3.3 % Normal 0.9-7.0 [facility] Comment on above: Performed By: #### A 1C #### [facility] [address] [place] [address] Dr. Bebeto Alvarado Erythrocyte distribution width (RBC) [Ratio] 13.8 % Normal 11.0-15.0 [facility] Comment on above: Performed By: #### A 1C #### [facility] [address] [place] [address] Dr. Bebeto Alvarado Hematocrit (Bld) [Volume fraction] 38.8 % Normal 36.0-48.0 [facility] Comment on above: Performed By: #### A 1C #### [facility] [address] [place] [address] Dr. Bebeto Alvarado Hemoglobin (Bld) [Mass/Vol] 12.5 g/dL Normal 12.0-16.0 [facility] Comment on above: Performed By: #### A 1C #### [facility] [address] [place] [address] Dr. Bebeto Alvarado IG # 0.02 10e3/ul Normal 0.00-0.03 [facility] Comment on above: Performed By: #### A 1C #### [facility] [address] [place] [address] Dr. Bebeto Alvarado IG % 0.3 % Normal 0.0-0.5 [facility] Comment on above: Performed By: #### A 1C #### [facility] [address] [place] [address] Dr. Bebeto Alvarado LYMPH # 1.9 103/ul Normal 1.2-3.8 [facility] Comment on above: Performed By: #### A 1C #### [facility] [address] [place] [address] Dr. Bebeto Alvarado Lymphocytes/100 WBC (Bld) 29.6 % Normal 20.5-60.0 [facility] Comment on above: Performed By: #### A 1C #### [facility] [address] [place] [address] Dr. Bebeto Alvarado MANUAL DIFF REQ NO Normal [facility] Comment on above: Performed By: #### A 1C #### [facility] [address] [place] [address] Dr. Bebeto Alvaardo MCH (RBC) [Entitic mass] 28.0 pg Normal 26.7-34.0 [facility] Comment on above: Performed By: #### A 1C #### [facility] [address] [place] [address] Dr. Bebeto Alvarado MCHC (RBC) [Mass/Vol] 32.2 g/dL Normal 29.9-35.2 [facility] Comment on above: Performed By: #### A 1C #### [facility] [address] [place] [address] Dr. Bebeto Alvarado MCV (RBC) [Entitic vol] 86.8 fL Normal 81.0-99.0 [facility] Comment on above: Performed By: #### A 1C #### [facility] [address] [place] [address] Dr. Bebeto Alvarado MONO # 0.4 103/ul Normal 0.3-0.8 [facility] Comment on above: Performed By: #### A 1C #### [facility] [address] [place] [address] Dr. Bebeto Alvarado Monocytes/100 WBC (Bld) 5.7 % Normal 1.7-12.0 [facility] Comment on above: Performed By: #### A 1C #### [facility] [address] [place] [address] Dr. Bebeto Alvarado NEUT # 3.8 103/ul Normal 1.4-6.5 [facility] Comment on above: Performed By: #### A 1C #### [facility] [address] [place] [address] Dr. Bebeto Alvarado Neutrophils/100 WBC (Bld) 60.1 % Normal 43.0-75.0 [facility] Comment on above: Performed By: #### A 1C #### [facility] [address] [place] [address] Dr. Bebeto Alvarado Platelet mean volume (Bld) [Entitic vol] 11.0 fL Normal 9.5-13.5 [facility] Comment on above: Performed By: #### A 1C #### [facility] [address] [place] [address] Dr. Bebeto Alvarado PLT 264 103/ul Normal 150-450 [facility] Comment on above: Performed By: #### A 1C #### [facility] [address] [place] [address] Dr. Bebeto Alvarado RBC 4.47 106/ul Normal 4.20-5.40 [facility] Comment on above: Performed By: #### A 1C #### [facility] [address] [place] [address] Dr. Bebeto Alvarado WBC 6.3 103/ul Normal 4.0-11.0 [facility] Comment on above: Performed By: #### A 1C #### [facility] [address] [address] [address] Bebeto Alvarado GLYCOHEMOGLOBIN A1Con 2021 ADA RECOMMENDATION SEE BELOW Normal [facility] Comment on above: Result Comment: ADA RECOMMENDED LIMIT 4.0 - 6.0 ADA THERAPEUTIC TARGET < 7.0 ACTION SUGGESTED > 7.0 Performed By: #### A 1C #### [facility] [address] [address] [address] Bebeto Alvarado Glucose [Mass/Vol] 105 mg/dL Normal [facility] Comment on above: Performed By: #### A 1C #### [facility] [address] [place] [address] Dr. Bebeto Alvarado HbA1c (Bld) [Mass fraction] 5.3 % Normal 4.5-6.2 [facility] Comment on above: Performed By: #### A 1C #### [facility] [address] [place] [address] Dr. Bebeto Alvarado IRONon 11-21-2021 Iron [Mass/Vol] 59.0 ug/dL Normal 50.0-170.0 [facility] Comment on above: Performed By: #### A 1C #### [facility] [address] [place] [address] Dr. Bebeto Alvarado LIPID PROFILEon 11-21-2021 CHOL-HDL RATIO NORM SEE BELOW Normal [facility] Comment on above: Result Comment: 3.3 - 4.4 LOW RISK 4.4 - 7.1 AVERAGE RISK 7.1 - 11.0 MODERATE RISK >11.0 HIGH RISK Performed By: #### C MP, LIPID #### [facility] [address] [place] [address] Dr. Bebeto Alvarado Cholesterol [Mass/Vol] 139 mg/dL Normal <=200 [facility] Comment on above: Performed By: #### C MP, LIPID #### [facility] [address] [place] [address] Dr. Bebeto Alvarado Cholesterol in HDL [Mass/Vol] 35 mg/dL Critically low 40-60 [facility] Comment on above: Performed By: #### C MP, LIPID #### [facility] [address] [address] [address] Bebeto Alvarado Cholesterol in LDL [Mass/Vol] 69.6 mg/dL Normal [facility] Comment on above: Performed By: #### C MP, LIPID #### [facility] [address] [place] [address] Dr. Bebeto Alvarado Cholesterol.total/Chol esterol in HDL [Mass ratio] 4.0 {ratio} Normal [facility] Comment on above: Performed By: #### C MP, LIPID #### [facility] [address] [place] [address] Dr. Bebeto Alvarado HDL NORMAL > or = 60 mg/dl - LO W CARDIOVASCULAR RISK <40 mg/dl - HIGH CARDIOVASCULAR RISK Normal [facility] Comment on above: Performed By: #### C MP, LIPID #### [facility] [address] [place] [address] Dr. Bebeto Alvarado LDL CALC NORMAL SEE BELOW Normal [facility] Comment on above: Result Comment: <100 mg/dl OPTIMAL 100 - 129 mg/dl NEAR OR ABOVE OPTIMAL 130 - 159 mg/dl BORDERLINE HIGH 160 - 189 mg/dl HIGH >190 mg/dl VERY HIGH Performed By: #### C MP, LIPID #### [facility] [address] [place] [address] Dr. Bebeto Alvarado Triglyceride [Mass/Vol] 172 mg/dL Critically high <=150 [facility] Comment on above: Performed By: #### C MP, LIPID #### [facility] [address] [place] [address] Dr. Bebeto Alvarado VLDL CALC 34.4 mg/dL Normal [facility] Comment on above: Performed By: #### C MP, LIPID #### [facility] [address] [address] [address] Bebeto Alvarado PROF 14(COMP METB)on 022 Albumin [Mass/Vol] 3.8 g/dL Normal 3.4-5.0 [facility] Comment on above: Performed By: #### C MP, LIPID #### [facility] [address] [place] [address] Dr. Bebeto Alvarado Albumin/Globulin [Mass ratio] 1.1 {ratio} Normal [facility] Comment on above: Performed By: #### C MP, LIPID #### [facility] [address] [place] [address] Dr. Bebeto Alvarado ALP [Catalytic activity/Vol] 96 U/L Normal 46-116 [facility] Comment on above: Performed By: #### C MP, LIPID #### [facility] [address] [address] [address] Bebeto Alvarado ALT [Catalytic activity/Vol] 25 U/L Normal 14-59 [facility] Comment on above: Performed By: #### C MP, LIPID #### [facility] [address] [address] [address] Bebeto Alvarado Anion gap [Moles/Vol] 11.8 mmol/L Normal [facility] Comment on above: Performed By: #### C MP, LIPID #### [facility] [address] [place] [address] Dr. Bebeto Alvarado AST [Catalytic activity/Vol] 20 U/L Normal 15-37 [facility] Comment on above: Performed By: #### C MP, LIPID #### [facility] [address] [address] [address] Bebeto Alvarado Bilirubin [Mass/Vol] 0.4 mg/dL Normal 0.2-1.0 [facility] Comment on above: Performed By: #### C MP, LIPID #### [facility] [address] [address] [address] Bebeto Alvarado Calcium [Mass/Vol] 8.8 mg/dL Normal 8.5-10.1 [facility] Comment on above: Performed By: #### C MP, LIPID #### [facility] [address] [address] [address] Bebeto Alvarado Chloride [Moles/Vol] 106 mmol/L Normal 98-107 [facility] Comment on above: Performed By: #### C MP, LIPID #### [facility] [address] [address] [address] Bebeto Alvarado CO2 [Moles/Vol] 27.0 mmol/L Normal 21.0-32.0 [facility] Comment on above: Performed By: #### C MP, LIPID #### [facility] [address] [address] [address] Bebeto Alvarado Creatinine [Mass/Vol] 0.97 mg/dL Normal 0.55-1.02 [facility] Comment on above: Performed By: #### C MP, LIPID #### [facility] [address] [address] [address] Bebeto Alvarado EGFR-AF SRI LANKAN >60 Normal >=60 [facility] Comment on above: Performed By: #### C MP, LIPID #### [facility] [address] [address] [address] Bebeto Alvarado EGFR-NON AF SRI LANKAN 59 mL/min/1.73m2 Critically low >=60 [facility] Comment on above: Performed By: #### C MP, LIPID #### [facility] [address] [address] [address] Bebeto Alvarado Globulin (S) [Mass/Vol] 3.4 g/dL Normal [facility] Comment on above: Performed By: #### C MP, LIPID #### [facility] [address] [address] [address] Bebeto Alvarado Glucose [Mass/Vol] 103 mg/dL Normal 74-106 [facility] Comment on above: Performed By: #### C MP, LIPID #### [facility] [address] [address] [address] Bebeto Alvarado Potassium [Moles/Vol] 3.8 mmol/L Normal 3.5-5.1 [facility] Comment on above: Performed By: #### C MP, LIPID #### [facility] [address] [address] [address] Bebeto Alvarado Protein [Mass/Vol] 7.2 g/dL Normal 6.4-8.2 [facility] Comment on above: Performed By: #### C MP, LIPID #### [facility] [address] [address] [address] Bebeto Alvarado Sodium [Moles/Vol] 141 mmol/L Normal 136-145 [facility] Comment on above: Performed By: #### C MP, LIPID #### [facility] [address] [address] [address] Bebeto Alvarado Urea nitrogen [Mass/Vol] 11.0 mg/dL Normal 7.0-18.0 [facility] Comment on above: Performed By: #### C MP, LIPID #### [facility] [address] [place] [address] Dr. Bebeto Alvarado Urea nitrogen/Creatinine [Mass ratio] 11.3 mg/mg Normal [facility] Comment on above: Performed By: #### C MP, LIPID #### [facility] [address] [place] [address] Dr. Bebeto Alvarado URIC ACID SERUMon 11-21-2021 Urate [Mass/Vol] 7.3 mg/dL Critically high 2.6-6.0 [facility] Comment on above: Performed By: #### A 1C #### [facility] [address] [place] [address] Dr. Bebeto Alvarado VITAMIN B12on 11-21-2021 Cobalamin (Vitamin B12) [Mass/Vol] 2123.0 pg/mL Critically high 193.0-986.0 [facility] Comment on above: Performed By: #### A 1C #### [facility] [address] [place] [address] Dr. Bebeto Alvarado Physician Referralon 022 Physician Referral [id number] Normal [facility] KNEE RIGHT 1 OR 2 VWSon KNEE RIGHT [address] [facility] Department of Radiology [address] [place] [address] ======== Patient Name: MICHELLE BE [...] Electronically signed by:Debra Del Cid. Transcribed by: [email or web address], User Resident: Electronically Signed by: DEBRA DEL CID @ 02/08/2019 11:16 AM Normal [facility] Comment on above: Order Comment: , Mabel ws (X-RAY, KNEE): Radiologic Protocol , Weight Bearing?: N , With or Without Brace/Cast/Collar: With , Views (X-RAY, KNEE): Radiologic Protocol , Weight Bearing?: N , With or Without Brace/Cast/Collar: With , , , Ordering Provider - AHSAN BINGHAM PA-C , KNEE RIGHT 1 OR 2 VWSon KNEE RIGHT [address] [facility] Department of Radiology [address] [place] [phone] ======== Patient Name: MICHELLE BE : [...] complications. Electronically signed by:Tomasz Stoll. Transcribed by: [email or web address], User Resident: Electronically Signed by: TOMASZ STOLL @ 12/07/2018 11:14 AM Normal [facility] Comment on above: Order Comment: , Vie ws (X-RAY, KNEE): Radiologic Protocol , Weight Bearing?: N , With or Without Brace/Cast/Collar: With , Views (X-RAY, KNEE): Radiologic Protocol , Weight Bearing?: N , With or Without Brace/Cast/Collar: With , , , Ordering Provider - AHSAN BINGHAM PA-C , KNEE RIGHT 1 OR 2 [facility] KNEE RIGHT 1 OR 2 [facility] Department of Radiology [address] [place] [phone] ======== Patient Name: MICHELLE BE : [...] osteoarthritis Electronically signed by:Anup Ellison. Transcribed by: [email or web address], User Resident: Electronically Signed by: ANUP ELLISON @ 10/06/2018 02:48 PM Normal [facility] Comment on above: Order Comment: , Mabel ws (X-RAY, KNEE): Radiologic Protocol , Weight Bearing?: N , With or Without Brace/Cast/Collar: With , Views (X-RAY, KNEE): Radiologic Protocol , Weight Bearing?: N , With or Without Brace/Cast/Collar: With , , , Ordering Provider - AHSAN BINGHAM PA-C , KNEE RIGHT 1 OR 2 [facility] 08-05 KNEE RIGHT [address] [facility] Department of Radiology [address] [place] [phone] ======== Patient Name: MICHELLE BE : [...] , Exam: KNEE RIGHT 1 OR 2 [facility] ======== KNEE RIGHT 1 OR 2 [...] effusion Electronically signed by:Anup Ellison. Transcribed by: [email or web address], User Resident: Electronically Signed by: ANUP ELLISON @ 08/26/2018 04:56 PM Normal [facility] Comment on above: Order Comment: , Vie ws (X-RAY, KNEE): Radiologic Protocol , Weight Bearing?: N , With or Without Brace/Cast/Collar: With , Views (X-RAY, KNEE): Radiologic Protocol , Weight Bearing?: N , With or Without Brace/Cast/Collar: With , , , Ordering Provider - AHSAN BINGHAM PA-C , KNEE RIGHT 1 OR 2 [facility] 07-06 KNEE RIGHT 1 OR 2 [facility] Department of Radiology [address] [place] [phone] ======== Patient Name: MICHELLE BE : [...] , Exam: KNEE RIGHT 1 OR 2 [facility] ======== KNEE RIGHT 1 OR 2 [facility] 07/29/2018 2:12 PM EDT SIGNS AND [...] compartment Electronically signed by:Anup Ellison. Transcribed by: [email or web address], User Resident: Electronically Signed by: ANUP ELLISON @ 07/29/2018 03:41 PM Normal [facility] Comment on above: Order Comment: , Mabel ws (X-RAY, KNEE): Radiologic Protocol , Weight Bearing?: N , With or Without Brace/Cast/Collar: With , Views (X-RAY, KNEE): Radiologic Protocol , Weight Bearing?: N , With or Without Brace/Cast/Collar: With , , , Ordering Provider - AHSAN BINGHAM PA-C , KNEE RIGHT 3 [facility] 9 KNEE RIGHT 3 [facility] Department of Radiology [address] [place] [phone] ======== Patient Name: MICHELLE BE : [...] knee Electronically signed by:Anup Ellison. Transcribed by: [email or web address], User Resident: Electronically Signed by: ANUP ELLISON @ 07/15/2018 03:31 PM Normal [facility] Comment on above: Order Comment: , Vie ws (X-RAY, KNEE): Radiologic Protocol , Weight Bearing?: N , With or Without Brace/Cast/Collar: With , Views (X-RAY, KNEE): Radiologic Protocol , Weight Bearing?: N , With or Without Brace/Cast/Collar: With , , , Ordering Provider - AHSAN BINGHAM PA-C , Operative Reporton 9 Operative Report MR#: [id number] [facility] Pt. Name: Michelle Be Room #: [...] Duarte MD Date Trans: 07/03/2018 04:28 A/terry [id number] Normal [facility] *ANAEROBIC CULTUREon 019 *ANAEROBIC CULTURE Clinical Report: (D) Specimen/Source: SWAB/RT KNEE Collected: 07/02/2018 13:53 Status: Final Last Updated: 07/07/2018 08:02 CULT RES (Final) No Anaerobes Isolated 5 Days Normal [facility] Comment on above: Performed By: #### 3 0312 #### [address] *WOUND CULTUREon 07-02-2018 *WOUND CULTURE Clinical Report: (D) Specimen/Source: WOUND/INTRAOP SPEC Collected: 07/02/2018 13:53 Status: Final Last Updated: 07/07/2018 10:13 (1) #1 RT KNEE GRAM (Final) Rare Polys No Bacteria Seen CULT RES (Final) No Growth Day 5 Normal [facility] Comment on above: Order Comment: #1 RT KNEE Performed By: #### 3 0343 #### [address] KNEE RIGHT 1 OR 2 VWSon 06-05 KNEE RIGHT [address] [facility] Department of Radiology [address] [place] [phone] ======== Patient Name: MICHELLE BE : 1960 Sex: F Age: Race: White Pt. Location: OUTP Patient Status: O Ordered Date: 07/02/2018 11:30:00 AM Completed Date: 07/02/2018 02:00 PM Requesting Provider: SUKI ESCALANTE Attending Provider: USKI ESCALANTE Report Copy To: Signs & Symptoms: [...] Electronically signed by:Debra Del Cid. Transcribed by: [email or web address], User Resident: Electronically Signed by: DEBRA DEL CID @ 07/02/2018 02:03 PM Normal [facility] Comment on above: Order Comment: ORIF VS PERCUTANEOUS FIXATION RIGHT PATELLA POC GLUCOSE LABon 07-02-2018 Glucose [Mass/Vol] 108 mg/dL High 70-100 [facility] Comment on above: Performed By: #### 8 5499 #### [facility] [address] [facility] APTTon 06-30-2018 aPTT Coag (Bld) [Time] 30.6 s Normal 25.0-35.0 [facility] Comment on above: Result Comment: ALL [...] THIS PURPOSE. Performed By: #### 5 6101, [id number] #### [facility] [address] [employer] [place] [address], [facility] BASIC METABOLIC PANELon 06-05 Calcium [Mass/Vol] 9.7 mg/dL Normal 8.6-10.3 [facility] Comment on above: Performed By: #### 0 0071 #### [facility] [address] [place] [address], [place] Chloride [Moles/Vol] 102 mmol/L Normal 98-107 [facility] Comment on above: Performed By: #### 0 0071 #### [facility] [address] [place] [address], [place] CO2 [Moles/Vol] 28 mmol/L Normal 21-31 [facility] Comment on above: Performed By: #### 0 0071 #### [facility] [address] [place] [address], [place] Creatinine [Mass/Vol] 1.20 mg/dL Normal 0.60-1.20 [facility] Comment on above: Performed By: #### 0 0071 #### [facility] [address] [place] [address], [place] GFR/1.73 sq M predicted among blacks MDRD (S/P/Bld) [Vol rate/Area] 56 ml/min/1.73sq m Abnormal >60 [facility] Comment on above: Performed By: #### 0 0071 #### [facility] [address] [place] [address], [place] GFR/1.73 sq M predicted among non-blacks MDRD (S/P/Bld) [Vol rate/Area] 47 ml/min/1.73sq m Abnormal >60 [facility] Comment on above: Performed By: #### 0 0071 #### [facility] [address] [place] [address], [place] Glucose [Mass/Vol] 97 mg/dL Normal 70-100 [facility] Comment on above: Performed By: #### 0 0071 #### [facility] [address] [place] [address], [place] Potassium [Moles/Vol] 4.1 mmol/L Normal 3.5-5.1 [facility] Comment on above: Performed By: #### 0 0071 #### [facility] [address] Sodium [Moles/Vol] 137 mmol/L Normal 136-145 [facility] Comment on above: Performed By: #### 0 0071 #### [facility] [address] Urea nitrogen [Mass/Vol] 19 mg/dL Normal 7-25 [facility] Comment on above: Performed By: #### 0 0071 #### [facility] [address] CBC W/DIFFon 06-30-2018 ABS BASOPHILS 0.1 10*3/uL Normal 0.0-0.2 [facility] Comment on above: Performed By: #### 5 3 #### [facility] [address] ABS IMM GRANS 0.0 10*3/uL Normal 0.0-0.2 [facility] Comment on above: Performed By: #### 5 102 #### [facility] [address] ABS NEUTROPHILS 6.4 10*3/uL Normal 1.6-7.6 [facility] Comment on above: Performed By: #### 5 102 #### [facility] [address] Basophils/100 WBC (Bld) 0.7 % Normal 0.0-1.0 [facility] Comment on above: Performed By: #### 5 102 #### [facility] [address] Eosinophils (Bld) [#/Vol] 0.2 10*3/uL Normal 0.0-0.5 [facility] Comment on above: Performed By: #### 5 0103 #### [facility] [address] [facility] [place] [address], [facility] Eosinophils/100 WBC (Bld) 1.5 % Normal 0.0-6.0 [facility] Comment on above: Performed By: #### 5 0103 #### [facility] [address] [facility] Erythrocyte distribution width (RBC) [Ratio] 14.4 % Normal 11.5-15.0 [facility] Comment on above: Performed By: #### 5 0103 #### [facility] [address] [facility]. [address] Hematocrit (Bld) [Volume fraction] 40.6 % Normal 36.0-45.0 [facility] Comment on above: Performed By: #### 5 0103 #### [facility] [address] [facility]. [address] Hemoglobin (Bld) [Mass/Vol] 13.3 g/dL Normal 12.0-15.0 [facility] Comment on above: Performed By: #### 5 0103 #### [facility] [address] [facility] [address] IMMATURE GRANS 0.4 % Normal 0.0-1.0 [facility] Comment on above: Performed By: #### 5 0103 #### [facility] [address] [facility]. [address] Lymphocytes (Bld) [#/Vol] 2.6 10*3/uL Normal 1.2-4.0 [facility] Comment on above: Performed By: #### 5 3 #### [facility] [address] [place] [address], [facility] Lymphocytes/100 WBC (Bld) 26.5 % Normal 20.0-45.0 [facility] Comment on above: Performed By: #### 5 0103 #### [facility] [address] [place] [address], [facility] MCH (RBC) [Entitic mass] 27.4 pg Normal 27.0-33.0 [facility] Comment on above: Performed By: #### 5 3 #### [facility] [address] [facility] [place] [address], [facility] MCHC (RBC) [Mass/Vol] 32.8 g/dL Normal 32.0-35.0 [facility] Comment on above: Performed By: #### 5 0103 #### [facility] [address] [facility] [place] [address], [facility] MCV (RBC) [Entitic vol] 83.5 fL Normal 82.0-98.0 [facility] Comment on above: Performed By: #### 5 3 #### [facility] [address] [facility] [place] [address], [facility] Monocytes (Bld) [#/Vol] 0.5 10*3/uL Normal 0.1-1.0 [facility] Comment on above: Performed By: #### 5 3 #### [facility] [address] [facility] [place] [address], [facility] MONOS 5.0 % Normal 5.0-12.0 [facility] Comment on above: Performed By: #### 5 3 #### [facility] [address] [facility] [place] [address], [facility] Neutrophils/100 WBC (Bld) 65.9 % Normal 40.0-72.0 [facility] Comment on above: Performed By: #### 5 3 #### [facility] [address] [place] [address], [facility] Nucleated RBC/100 WBC (Bld) [Ratio] 0 % Normal 0-0 [facility] Comment on above: Performed By: #### 5 0103 #### [facility] [address] [place] [address], [facility] PLAT CNT 290 10*3/uL Normal 150-400 [facility] Comment on above: Performed By: #### 5 0103 #### [facility] [address] [place] [address], [facility] RBC (Bld) [#/Vol] 4.86 10*6/uL Normal 3.80-5.00 [facility] Comment on above: Performed By: #### 5 0103 #### [facility] [address] [place] [address], [facility] WBC (Bld) [#/Vol] 9.68 10*3/uL Normal 4.00-10.60 [facility] Comment on above: Performed By: #### 5 0103 #### [facility] [address] [place] [address], [facility] KNEE RIGHT 1 OR 2 VWSon 06-05 KNEE RIGHT [address] [facility] Department of Radiology [address] [place] [phone] ======== Patient Name: MICHELLE BE : [...] Electronically signed by:Debra Del Cid. Transcribed by: [email or web address], User Resident: Electronically Signed by: DEBRA DEL CID @ 06/30/2018 11:52 AM Normal [facility] Comment on above: Order Comment: , Mabel ws (X-RAY, KNEE): Radiologic Protocol , Weight Bearing?: N , With or Without Brace/Cast/Collar: With , Views (X-RAY, KNEE): Radiologic Protocol , Weight Bearing?: N , With or Without Brace/Cast/Collar: With , , , Ordering Provider - AHSAN BINGHAM PA-C , PROTHROMBIN TIMEon 9 INR Coag (PPP) [Relative time] 0.98 {INR} Normal 0.91-1.16 [facility] Comment on above: Result Comment: [facility] P RECOMMENDED INR FOR WARFARIN THERAPY [...] CHEST 1995;108:231S-246S. Performed By: #### 5 6101, [id number] #### [address] PT Coag (PPP) [Time] 13.0 s Normal 12.3-14.8 [facility] Comment on above: Result Comment: ALL RESULTS MUST BE INTERPRETED WITH RESPECT TO BLOOD DRAWING ARTIFACT OR DILUTION ERROR OF ANTICOAGULANT AT THE TIME OF SAMPLING. Performed By: #### 5 6101, [id number] #### [address] KNEE RIGHT 3 VWSon 9 KNEE RIGHT 3 VWS [facility] Department of Radiology [address] [place] [phone] ======== Patient Name: MICHELLE BE : 1960 Sex: F Age: Race: White Pt. Location: 84 Patient Status: O Ordered Date: 06/15/2018 1:35:00 PM Completed Date: 06/15/2018 01:34 PM Requesting Provider: AMPARO ZHANG Attending Provider: AMPARO ZHANG Report Copy To: ADELAIDA CARRION Signs & Symptoms: M17.11 Unilateral primary osteoarthritis, right knee I10 History: [place] Comments: , Weight Bearing?: Y , Weight Bearing?: Y , , , Ordering Provider - AMPARO ZHANG PA-C , Exam: KNEE RIGHT 3 [facility] ======== KNEE RIGHT 3 S 06/15/2018 [...] effusion Electronically signed by:Anup Ellison. Transcribed by: [email or web address], User Resident: Electronically Signed by: ANUP ELLISON @ 06/15/2018 03:50 PM Normal [facility] Comment on above: Order Comment: , Isaiah ght Bearing?: Y , Weight Bearing?: Y , , , Ordering Provider - AMPARO ZHANG PA-C , Vital Signs Date Time Vital Sign Value Performing Clinician Facility 05-18-2023 16:30-0500 Body height 162.6 cm Adelaida Sheyla DIFFUSION OPERATOR Work Phone: [facility] 05-18-2023 16:30-0500 Body mass index (BMI) [Ratio] 47.89 kg/m2 Adelaida Sheyla DIFFUSION OPERATOR Work Phone: [facility] 05-18-2023 16:30-0500 Body temperature 97.3 [degF] Adelaida Sheyla DIFFUSION OPERATOR Work Phone: [facility] 05-18-2023 16:30-0500 Body weight 126.55 kg Adelaida Sheyla DIFFUSION OPERATOR Work Phone: [facility] 05-18-2023 16:30-0500 Diastolic blood pressure 80 mm[Hg] Adelaida Sheyla DIFFUSION OPERATOR Work Phone: [facility] 05-18-2023 16:30-0500 Heart rate 76 /min Adelaida Sheyla DIFFUSION OPERATOR Work Phone: [facility] 05-18-2023 16:30-0500 Respiratory rate 19 /min Adelaida Sheyla DIFFUSION OPERATOR Work Phone: [facility] 05-18-2023 16:30-0500 SaO2% (BldA) [Mass fraction] 97 % Adelaida Carrion DIFFUSION OPERATOR Work Phone: [facility] 02-12-2024 16:30-0500 Systolic blood pressure 134 mm[Hg] Adelaida Aichholz DIFFUSION OPERATOR Work Phone: [facility] 03-23-2023 12:10-0500 Diastolic blood pressure 98 mm[Hg] Adelaida Aichholz Work Phone: [facility] 03-23-2023 12:10-0500 Heart rate 76 /min Adelaida Aichholz Work Phone: [facility] 03-23-2023 12:10-0500 Respiratory rate 18 /min Adelaida Aichholz Work Phone: [facility] 03-23-2023 12:10-0500 SaO2% (BldA) [Mass fraction] 99 % Adelaida Aichholz Work Phone: [facility] 03-23-2023 12:10-0500 Systolic blood pressure 162 mm[Hg] Adelaida Aichholz Work Phone: [facility] 03-23-2023 10:53-0500 Body height 162.56 cm Adelaida Aichholz Work Phone: [facility] 03-23-2023 10:53-0500 Body weight 125.64 kg Adelaida Aichholz Work Phone: [facility] 12-19-2022 14:55-0400 Body height 162.56 cm Rosemary Kirkland Other [employer] Other 12-19-2022 14:55-0400 Body mass index (BMI) [Ratio] 47.85 kg/m2 Rosemary Kirkland Other [employer] Other 12-19-2022 14:55-0400 Body temperature 97.8 [degF] Rosemary Kirkland Other [employer] Other 12-19-2022 14:55-0400 Body weight 126.46 kg Rosemary Kirkland Other [facility] Other 12-19-2022 14:55-0400 Respiratory rate 20 /min Rosemary Vernonmond Other [employer] Other 12-19-2022 14:55-0400 SaO2% (BldA) [Mass fraction] 95 % Rosemary Kirkland Other [facility] Other 11-20-2022 13:12-0400 Body temperature 97.7 [degF] Adelaida Aichholz Work Phone: [facility] 11-20-2022 13:12-0400 SaO2% (BldA) [Mass fraction] 96 % Adelaida Aichholz Work Phone: [facility] 11-20-2022 07:44-0400 Diastolic blood pressure 90 mm[Hg] Adelaida Aichholz Work Phone: [facility] 11-20-2022 07:44-0400 Heart rate 103 /min Adelaida Aichholz Work Phone: [facility] 11-20-2022 07:44-0400 Systolic blood pressure 152 mm[Hg] Adelaida Aichholz Work Phone: [facility] 11-19-2022 20:00-0400 Respiratory rate 18 /min Adelaida Aichholz Work Phone: [facility] 11-18-2022 15:18-0400 Body height 162.56 cm Adelaida Aichholz Work Phone: [facility] 11-17-2022 09:00-0400 Body weight 122.92 kg Adelaida Aichholz Work Phone: [facility] Encounters Encounter Date Encounter Type Care Provider Facility Start: 07-07-2023 End: 07-07-2023 ambulatory ADELAIDA AICHHOLZ Not Available Start: 05-22-2023 End: 05-22-2023 ambulatory ASHLEIGH HINES Not Available Start: 05-21-2023 Refill Adelaida Carrion DIFFUSION OPERATOR Work Phone: [facility] Comment on above: Acute cystitis with hematuria (Primary Dx) Start: 05-18-2023 End: 05-18-2023 ambulatory ADELAIDA CARRION Not Available Start: 05-18-2023 End: 05-18-2023 Office outpatient visit 25 minutes Adelaida Carrion DIFFUSION OPERATOR Work Phone: [facility] Comment on above: Encounter for annual wellness visit (AWV) in Medicare patient (Primary Dx); OSMANY (obstructive sleep apnea); Chronic pain disorder; Gastroesophageal reflux disease, unspecified whether esophagitis present; Overactive bladder; Lower extremity edema; Pre-diabetes; Morbid obesity (CMS/HCC); Yeast infection of the skin; Tobacco dependence; Mood disorder (CMS/[facility]); Primary hypertension ([facility]); Left hip pain; Open wound of anterior abdominal wall, initial encounter Start: 05-18-2023 Bamboo flowsheet Adelaida Carrion DIFFUSION OPERATOR Work Phone: [facility] Start: 05-18-2023 Bamboo flowsheet Adelaida Carrion DIFFUSION OPERATOR Work Phone: [facility] Start: 05-18-2023 End: 05-18-2023 Patient encounter procedure Adelaida Carrion DIFFUSION OPERATOR Work Phone: [facility] Start: 04-30-2023 ambulatory Eduardo Acevedo acility:[facility] Start: 03-25-2023 End: 03-25-2023 ambulatory ADELAIDA SHEYLA Not Available Start: 03-23-2023 End: 03-23-2023 ambulatory Jace Graham Facility:[facility] Start: 03-23-2023 End: 03-23-2023 Admission to same day surgery center Adelaida Carrion Work Phone: [facility] Work Phone: Start: 03-23-2023 End: 03-23-2023 ambulatory Adelaida Carrion Work Phone: [facility] Work Phone: Start: 03-11-2023 End: 03-11-2023 ambulatory KALLI INTERIANOLENKA Not Available Start: 02-20-2023 End: 02-20-2023 ambulatory ASHLEIGH HINES Not Available Start: 02-12-2023 End: 02-12-2023 ambulatory Jace Graham Other [employer] Other Start: 02-12-2023 Telephone encounter Jace Haney Mixing Roll Operator Start: 12-19-2022 End: 12-19-2022 ambulatory Rosemary Kirkland Other [employer] Other Start: 12-19-2022 Office outpatient ne w 10 minutes Rosemary Kirkland [facility] José Miguel Start: 11-17-2022 End: 11-20-2022 Evaluation and management of inpatient Eduardo Aleshia Facility:[facility] Start: 11-17-2022 End: 11-20-2022 Evaluation and management of inpatient Adelaida Merryholz Work Phone: [facility] Work Phone: Start: 09-04-2022 ambulatory ARIAN Banegas Facili ty:[facility] Start: 08-26-2022 ambulatory NARENDRANATH LAKSHMIPATHY . Facility:[facility] Start: 08-08-2022 End: 08-09-2022 ambulatory PROPERTY INSPECTOR ADELAIDA AICHHOLZ Facility:[facility] Start: 07-25-2022 End: 07-26-2022 ambulatory PROPERTY INSPECTOR ADELAIDA AICHHOLZ Facility:[facility] Start: 07-15-2022 End: 07-15-2022 [...] Start: 01-01-2022 End: 01-02-2022 [facility] Start: 12-16-2021 End: 12-16-2021 ambulatory [...] Patient encounter procedure SUKI ESCALANTE Facility:[facility] Procedures Date Procedure Procedure Detail Performing Clinician Start: 03-23-2023 Screening colonoscopy L oneal Carrion Work Phone: Start: 03-23-2023 Colonoscopy Adelaida Jayden analily DIFFUSION OPERATOR Work Phone: Start: 09-15-2022 Mammography Adelaida Jayden ramos DIFFUSION OPERATOR Work Phone: Start: 08-28-2022 Microscopic observat ion [Identifier] in Cervix by Cyto stain Adelaida Carrion DIFFUSION OPERATOR Work Phone: Start: 07-02-2018 ANESTH KNEE AREA SURGERY CHAPARRITA HENDRICKS Start: 07-02-2018 REMOVAL OF SUPPORT IMPLANT SUKI EBRAHEIM Start: 07-02-2018 TREAT KNEECAP FRACTURE SUKI EBRAHEIM Plan of Treatment Date Care Activity Detail Author Start: 03-23-2033 Screening for malignant neoplasm of colon [facility] Start: 08-28-2025 Screening for malignant neoplasm of cervix [facility] Start: 05-18-2024 Medicare Annual Wellness (AWV) Medicare Annual Wellness (AWV) [facility] Start: 09-16-2023 Screening for malignant neoplasm of breast Mammogram [facility] Start: 08-17-2023 End: 08-17-2023 Patient encounter procedure 08/17/2023 9:20 AM EDT Office Visit [facility] [address] [place] [address] Adelaida Carrion NP [address] [place] [address] [facility] Start: 05-22-2023 End: 05-22-2023 Patient encounter procedure 05/22/2023 8:45 AM EST Office Visit [facility] [address] [facility] [address] [place] [address] Ashleigh Hines PA [address] [facility] [address] [place] [address] [facility] Start: 05-18-2023 End: 05-18-2023 Patient encounter procedure 05/18/2023 4:30 PM EST [facility] [address] [place] [address] Adelaida Carrion NP [address] [place] [address] Arrived [facility] Comment on above: Arrived Start: 05-18-2023 End: 05-18-2024 XR Hip - left 3 Views XR hip left 2 or 3 views Imaging Routine Left hip pain Expected: 05/18/2023 (Approximate), Expires: 05/18/2024 [facility] Work Phone: Comment on above: Expected: 05/18/2023 (Approximate), Expires: 05/18/2024 Start: 03-23-[address] [facility] Start: 11-20-[address] [facility] Start: 11-18-2022 Referral to clinical scheduling specialist [facility] Start: 11-17-2022 Hospital admission [facility] Start: 11-17-[address] [facility] Start: 12-06-1991 Screening for malignant neoplasm of cervix HPV/Cotest [facility] Start: 1960 Medicare Annual Wellness (AWV) Medicare Annual Wellness (AWV) [facility] Start: 1960 Screening for malignant neoplasm of colon [facility] Patient Education [facility] Work Phone: Patient referral [facility] Work Phone: [facility] Immunizations Immunization Date Immunization Notes Care Provider [facility] 02-13-2023 influenza, injectabl e, quadrivalent, preservative free Adelaida Carrion DIFFUSION OPERATOR Work Phone: [facility] 02-13-2023 SARS-COV-2 (COVID-19 ) vaccine, mRNA, spike protein, LNP, PF, 50 mcg/0.5 mL Adelaida Carrion DIFFUSION OPERATOR Work Phone: [facility] 02-19-2022 diphtheria, tetanus toxoids and pertussis vaccine Adelaida Carrion DIFFUSION OPERATOR Work Phone: [facility] 03-02-2021 Moderna SARS-CoV-2 Vaccination Adelaida Carrion DIFFUSION OPERATOR Work Phone: [facility] 08-24-2020 Moderna SARS-CoV-2 Vaccination Adelaida Carrion DIFFUSION OPERATOR Work Phone: [facility] 07-27-2020 Moderna SARS-CoV-2 Vaccination Adelaida Carrion DIFFUSION OPERATOR Work Phone: [facility] 05-28-2018 influenza, injectabl e, quadrivalent, preservative free Adelaida Carrion Work Phone: [facility] Payers Date Payer Category Payer Medicare [id number] 2022 Private Health Insurance [id number] 2022 Self-pay [id number] 2022 Medicare [employer] MEDICARE REPLACEMENT [id number] 2022-Present [address] [address] [place] [address] [id number] 2008 Unknown [id number] 1961 Unknown [id number] 2.16.840.1.275710.3.579.2 .647 1961 Unknown [id number] 2.16.840.1.968350.3.579.2 .593 1961 Unknown [id number] 2.16.840.1.544933.3.579.2 .593 1961 Unknown [id number] 2.16.840.1.894573.3.579.2 .593 1961 Unknown [id number] 2.16.840.1.144628.3.579.2 .593 1961 Unknown [id number] 2.16.840.1.063224.3.579.2 .593 1961 Unknown [id number] 2.16.840.1.749201.3.579.2 .593 1961 Unknown [id number] 2.16.840.1.703357.3.579.2 .593 1961 Unknown [id number] 2.16.840.1.890012.3.579.2 .593 1961 Unknown [id number] 2.16.840.1.055268.3.579.2 .593 1961 Unknown [id number] 2.16.840.1.214243.3.579.2 .593 1961 Unknown [id number] 2.16.840.1.855230.3.579.2 .593 1961 Unknown [id number] 2.16.840.1.343874.3.579.2 .593 1961 Unknown [id number] 2.16.840.1.695702.3.579.2 .593 1961 Unknown [id number] 2.16.840.1.055007.3.579.2 .593 1961 Unknown [id number] 2.16.840.1.137950.3.579.2 .593 1961 Unknown [id number] 2.16.840.1.558638.3.579.2 .593 1961 Unknown [id number] 2.16.840.1.705555.3.579.2 .593 1961 Unknown [id number] 2.16.840.1.127903.3.579.2 .593 1961 Unknown [id number] 2.16.840.1.445534.3.579.2 .593 1961 Unknown [id number] 2.16.840.1.682043.3.579.2 .593 1961 Unknown [id number] 2.16.840.1.427675.3.579.2 .593 1961 Unknown [id number] 2.16.840.1.973108.3.579.2 .593 1961 Unknown [id number] 2.16.840.1.875441.3.579.2 .593 1961 Unknown [id number] 2.16.840.1.395775.3.579.2 .593 1961 Unknown [id number] 2.16.840.1.418363.3.579.2 .1259 1961 Unknown [id number] 2.16.840.1.338192.3.579.2 .1259 1961 Unknown [id number] 2.16.840.1.369358.3.579.2 .1259 1961 Unknown [id number] 2.16.840.1.232001.3.579.2 .1259 1961 Unknown [id number] 2.16.840.1.947198.3.579.2 .1259 1961 Unknown [id number] 2.16.840.1.891268.3.579.2 .1259 1959 Medicare [id number] 1959 Unknown [id number] Unknown [id number] 2.16.840.1.041732.3.579.2 .531 Unknown [id number] 2.16.840.1.086056.3.579.2 .531 Unknown [id number] 2.16.840.1.368348.3.579.2 .531 Social History Date Type Detail Facility Start: 11-18-2022 End: 02-09-2023 Tobacco smoking status DCIS Ex-smoker (finding) [facility] Start: 1960 Sex Assigned At Female [facility] Start: 03-25-2023 End: 05-18-2023 Sex [...] Facility 11-20-2022 Functional status Patient at [facility] Work Phone: Mental Status Date Assessment Result Facility 11-20-2022 Cognitive function Cognitive Sta tus Patient is Progressing Toward Baseline [facility] Work Phone: Clinical Notes 10-03-2021 to [...] (BARIATRIC MULTIVITAMINS/IRON PO) Bariatric Multivitamins/Iron nystatin (Mycostatin) 852861 UNIT/GM powder 1 application , Topical, 2 [...] Degenerative cervical disc Degenerative lumbar disc Depression ([facility]) 05/18/2023 Diastolic dysfunction Dizziness 05/18/2023 Dysphagia Fibromyalgia Gastrocnemius equinus GERD (gastroesophageal reflux disease) Heart murmur Hematoma of right breast Hemiparesis, right ([facility]) Hemorrhoid int/external hemorrhoids Hiatal hernia Iron deficiency Left foot pain 03/25/2023 Lower extremity edema Mood disorder ([facility]) mixed mood disorder OSMANY (obstructive sleep apnea) Osteoporosis ([facility]) Overactive bladder Pre-diabetes Primary hypertension ([facility]) 03/25/2023 PTSD (post-traumatic stress disorder) ([facility]) Restless leg Right knee pain Right sided weakness S/P bariatric surgery Shingles Slurred speech Stroke ([facility]) 2018 Tenosynovitis, de Quervain Thoracic back pain, [...] yearly and prn documented in this encounter [facility] 03-23-2023 Procedure note [facility] 12-19-2022 Evaluation note Encounter Date Diagnosis Assessment Notes Dec, Skin candidiasis (ICD-10 - B37.2) Drink plenty fluids, get plenty of rest. Continue home medications as prescribed. Take the Diflucan as prescribed until gone. Follow-up with your family physician if no improvement in 2 to 3 days [facility] Other 08-17-2023 Discharge summary Author Eduardo bautista [facility] November 20, 2022 6:38am Note Date/Time November 20, 2022 6: 38am [facility] [address] [place] [address] Discharge Summary Signed Patient: Michelle eB MR#: [id number] : 1960 Acct:[id number] Age/Sex: 61 / F Adm Date: 3 Loc: Room: [address] [place] [address]: Gaudencio Monk MD Copies to: MD Adelaida Álvarez, DIFFUSION OPERATOR-C~ Providers Date of Discharge: 11/20/22 Discharging Provider: [...] at that time.? She reports moving to [place] from [place] in 2011 and was then diagnosed with bipolar disorder at [facility] in [place], where she still follows with a therapist.? Shereports that she has been with 7 therapists in the last 9 years and is currentlycompleting EMDR with her current therapist. Past hospitalizations: Her most recent hospitalization was 5 years ago [place] in [place] for the same feeling she is experiencing [...] worked since 2010 due to her fibromyalgia.? [facility]. Relationships: Reports having people [...] self or stop treatment, but to call [employer], 911 or come to the nearest emergency [...] Tablet 1 tab PO QID Follow Up: [facility] [Outside] [facility] [Outside] ( manager of medical: (Insert date/time here) Therapy:? (insert date/time here) [...] signed by Eduardo Monk MD> 11/20/22 0638 [facility] Work Phone: 1(564) 118-523608-16-2023 Progress note Author Eduardo bautista [facility] November 19, 2022 6:25am Note Date/Time November 19, 2022 6: 25am [facility] [address] [place] [address] Psychiatry Progress Note Signed Patient: Michelle Be MR#: [id number] : 1960 Acct:[id number] Age/Sex: 61 / F Adm Date: 3 Loc: Room: [address] [place] [address] Type : ADM IN Attending Dr: Gaudencio [...] <Electronically signed by Eduardo Monk MD> 11/19/2225 [facility] Work Phone: 1(988) 713-101608-15-2023 Progress note Author Eduardo bautista [facility] November 18, 2022 11:01am Note Date/Time November 18, 2022 10 :11am [facility] [address] [place] [address] Psychiatry Progress Note Signed Patient: Michelle Be MR#: [id number] : 1960 Acct:[id number] Age/Sex: 61 / F Adm Date: 3 Loc: 1S Room: 8S3497-7 Type : ADM IN Attending Dr: Gaudencio [...] by requesting a schedule 2 referring to [facility] for pain management specifically every 4-6 hours [...] signed by MD DA Rangel> 11/18/22 1011 [facility] Work Phone: 1(592) 661-646908-14-2023 History and physical note Author Eduardo bautista [facility] November 17, 2022 12:48pm Note Date/Time November 17, 2022 12 :48pm [facility] [address] [place] [address] Psychiatry H&P Signed Patient: Michelle Be MR#: [id number] : 1960 Acct:[id number] Age/Sex: 61 / F Adm Date: 3 Loc: Room: [address] [place] [address] Type: ADM IN Attending Dr: Gaudencio Monk [...] at that time. She reports moving to [place] from [place] in 2011 and was then diagnosed with bipolar disorder at [facility] in [place], where she still follows with a therapist. Shereports that she has been with 7 therapists in the last 9 years and is currentlycompleting EMDR with her current therapist. Past hospitalizations: Her most recent hospitalization was 5 years ago [place] in [place] for the same feeling she is experiencing [...] equal bilaterally. CN XII: Tongue protrusion midline [facility] History (Updated 11/17/22 @ 10:42 [...] <Electronically signed by Eduardo Monk MD> 11/17/22 1249 [facility] Work Phone: 1(456) 135-586103-23-2023 NoteCONSULTATION CONSULTATION DATE: 06/26/2022 To: Nurse Sheyla [...] L5-S1 facet joint injection under fluoroscopic guidance.[facility] [id number] NotePROCEDURE: XR SHOULDER RT 2V or > [...] Electronically authenticated by: KINGSLEY CLEMENTS Date: 2022-05-09 09:21[facility]01-23-2023 NotePROCEDURE: XR WRIST LT MIN 3 [...] authenticated by: KINGSLEY CLEMENTS Date: 2022-04-28 13:31[facility] [id number] NoteCONSULTATION CONSULTATION DATE: 04/03/2022 HISTORY OF PRESENT [...] her in three months, unless otherwise indicated.[facility] [id number] NoteCONSULTATION CONSULTATION DATE: 01/02/2022 This is a [...] Dr. Macedo to [facility] in [place] for the compounded cream. She needs a [...] in three months' time unless otherwise indicated.[facility] [id number] NotePROCEDURE: XR ANKLE RT MIN 3 VIEWS, [...] Electronically authenticated by: KINGSLEY CLEMENTS Date: 2022-01-01 13:11[facility]09-28-2022 NotePROCEDURE: XR ANKLE RT MIN 3 [...] Electronically authenticated by: KINGSLEY CLEMENTS Date: 2022-01-01 13:11[facility]08-18-2022 NotePROCEDURE: XR FOOT RT MIN 3 VIEWS HISTORY: Pain in right foot , chronic COMPARISON: XR foot right 2020 FINDINGS: BONES:No fracture, dislocation, bone lesion. Small calcaneal degenerative enthesophytes. SOFT TISSUES:No visible soft tissue swelling. EFFUSION:None visible. OTHER: Negative. IMPRESSION: 1. No acute bone abnormality or significant degenerative joint disease. Electronically authenticated by: KINGSLEY CLEMENTS Date: 2021-11-21 16:13[facility]06-30-2022 NoteCONSULTATION CONSULTATION DATE: 10/03/2021 This is [...] patient agrees with the plan of care. [facility] Signed and Approved by: ZELDA MCDANIEL . 10/10/2021 10:22:00[facility] Diagnosis Onset Date Resolution Status Allergies acute Bipolar 2 disorder acute Hypertension acute Morbid obesity with BMI of 45.0-49.9, adult acute OSMANY (obstructive sleep apnea) acute Restless legs syndrome acute [facility] Work Phone: Evaluation noteNo InformationNort [employer] Other Evaluation noteNo assessment information available [facility] Work Phone: Evaluation note* Diagnosis Encounter for annual wellness visit (AWV) in Medicare patient- Primary OSMANY (obstructive sleep apnea) Obstructive sleep apnea (adult) (pediatric) Chronic pain disorder Chronic pain syndrome Gastroesophageal reflux disease, unspecified whether esophagitis present Overactive bladder Hypertonicity of bladder Lower extremity edema Edema Pre-diabetes Other abnormal glucose Morbid obesity ([facility]) Morbid obesity Yeast infection of the skin [...] physical note Author Jace Graham [facility] March 23, 2023 11:21am Note Date/Time March 23, 2023 11:21am [facility] [address] [place] [address] Gastroenterology H&P Signed Patient: Michelle Be MR#: [id number] : 1960 Acct:[id number] Age/Sex: 62 / F Adm Date: 3 Loc: Room: Type: [facility] Attending Dr: Jace Graham MD [...] signed by Jace Graham MD> 03/23/23 1121 [facility] Work Phone: History general Narrative - [...] see above surg Hospitalization History stroke 2018 [facility] Other Hospital Discharge instructions Additional Instructions Regular Diet No Activity [facility]rictions[facility] Work Phone: Hospital Discharge instructions Additional [...] years. -Follow up with PCP. -Office number [phone].[facility] Work Phone: Summary Purpose Family History [...] AUTHOR 02/18/2019 [facility] DATE CREATED AUTHOR AUTHOR'S ORGANIZ ATION 11/15/2021 [facility] DATE CREATED AUTHOR AUTHOR'S ORGANIZ ATION 08/16/2022 [facility] DATE CREATED AUTHOR AUTHOR'S ORGANIZ ATION 06/28/2023 [facility] DATE CREATED AUTHOR AUTHOR'S ORGANIZ ATION 07/08/2023 [facility] Care Teams (unrecognized sec tion and [...] MD Other Provider Active Adelaida Marsh , SALESFORCE SPECIALIST Other Provider Active Jessica Murillo , DO [...] MD Other Provider Active Joellen Le , DIFFUSION OPERATOR-C Other Provider Active Severo Yancey MD Other Provider Active Rao Webber MD Other Provider Active Yuan Shi MD Other Provider Active Delroy Ramirez MD Other Provider Active Berta Comer , DO Other Provider Active Negrito Ruiz , DO Other Provider Active Lacho Singh , DO Other Provider Active Rachana Hobson SALESFORCE SPECIALIST Other Provider Active Rob Lake , DO Other Provider Active Jeff Alvarez MD Other Provider Active Urmila Rinaldi , SALESFORCE SPECIALIST Other Provider Active Bina Mayberry , SALESFORCE SPECIALIST Other Provider Active Mir Bradford MD Other Provider Active Te Da Silva MD Other Provider Active Debra Landaverde , JOHANN Other Provider Active Team Status: Inactive Member Role Status Dates Adelaida Carrion Primary Care Provider Active Jace Graham MD Attending Provider Active Burning Supervisor Relationship Specialty Start Date End Date José Luis Roberts MD [address] [place] [address] PCP - General Family Medicine 05/18/23 Adelaida Carrion NP [address] [place] [address] Referring Physician Nurse Practitioner 10/14/22 Burning Supervisor Relationship Specialty Start Date End Date José Luis Roberts MD [address] [place] [address] PCP - General Family Medicine 05/18/23 Adelaida Carrion NP [address] [place] [address] Referring Physician Nurse Practitioner 10/14/22 Burning Supervisor Relationship Specialty Start Date End Date José Luis Roberts MD [address] [place] [address] PCP - General Family Medicine 05/18/23 Adelaida Carrion NP [address] [place] [address] Referring Physician Nurse Practitioner 10/14/22 REASON FOR [...] BE BASED ON THE PRIMARY CLINICAL RECORDS. [employer] [facility]. provides no warranty or guarantee of the accuracy or completeness of information in this document.
== END 2023-07-16 19:38 | disposition home or self-care (01) ==
LOC: SLEEP 19:37
PROVIDERS: PCP Nurse Practitioner; Visit Provider Psychiatry & Neurology Neurology
DX: G47.33 Obstructive sleep apnea (adult) (pediatric) (principal)
CPT/HCPCS: 95811

== ENCOUNTER 2023-07-23 14:43 | Outpatient (OUT) | payer MEDICARE, SELFPAY ==
--- NOTE | 2023-07-23 14:59 | P.CN_ITS ---
Consult Note: HPI Data of Consult Patient: known to practice within the last 3 years Requesting Physician: Bhakti Culp NP Primary Care Provider: Adelaida Carrion NP Consult Narrative Reason for consult: f/u Narrative: Nasim Ingram a pleasant 62 year old female presents for evaluation and management of chronic low back pain and left hip pain. Pain 6/10 constant pain in low back. Pain increased with standing, walking, housework, lifting, stairs, bending, and activity. Patient following with Dr Díaz for consideration of right knee replacement, pending dental clearance. Patient finds mild benefit from medication regimen. Patient recently underwent bilateral SIJ injection with moderate improvement in pain following the injection and days after, but no ongoing improvement. Patient reports deep aching pressure. cc:: CC: Bhakti Culp NP Review of Systems ROS Status of ROS 10 or more systems reviewed and unremark able except as noted in history and below Musculoskeletal Reports: back pain PFSH PFSH Medical History FH: bariatric surgery ?Z84.89 - Family history of other specified conditions (ICD-10) Upper back pain ?M54.9 - Dorsalgia, unspecified (ICD-10) Osteoarthritis ?M19.90 - Unspecified osteoarthritis, unspecified site (ICD-10) Neck pain ?M54.2 - Cervicalgia (ICD-10) Low back pain ?M54.50 - Low back pain, unspecified (ICD-10) Fibromyalgia ?M79.7 - Fibromyalgia (ICD-10) Bipolar 1 disorder ?F31.9 - Bipolar disorder, unspecified (ICD-10) Acid reflux ?K21.9 - Gastro-esophageal reflux disease without esophagitis (ICD-10) Obesity ?E66.9 - Obesity, unspecified (ICD-10) Sleep apnea ?G47.30 - Sleep apnea, unspecified (ICD-10) Heart murmur ?R01.1 - Cardiac murmur, unspecified (ICD-10) High cholesterol ?E78.00 - Pure hypercholesterolemia, unspecified (ICD-10) Hypertension ?I10 - Essential (primary) hypertension (ICD-10) Surgical History S/P dilatation and curettage ?Z98.890 - Other specified postprocedural states (ICD-10) H/O breast biopsy ?Z98.890 - Other specified postprocedural states (ICD-10) S/P ORIF (open reduction internal fixation) fracture ?Z98.890 - Other specified postprocedural states (ICD-10) ?Z87.81 - Personal history of (healed) traumatic fracture (ICD-10) Hx of laparoscopic gastric banding ?Z98.84 - Bariatric surgery status (ICD-10) History of tonsillectomy and adenoidectomy ?Z90.89 - Acquired absence of other organs (ICD-10) History of appendectomy ?Z90.49 - Acquired absence of other specified parts of digestive tract (ICD- 10) History of hemilaminectomy ?Z98.890 - Other specified postprocedural states (ICD-10) History of cholecystectomy ?Z90.49 - Acquired absence of other specified parts of digestive tract (ICD- 10) Previous section ?Z98.891 - History of uterine scar from previous surgery (ICD-10) Social History Smoking status: Former smoker Meds Home Medications and Allergies Home Medications ?Medication ?Instructions ?Recorded ?Confirmed ?Type amlodipine 10 mg tablet (Norvasc) 10 mg PO DAILY 09/10/22 07/11/23 History biotin 1 mg capsule 1 mg PO DAILY 09/10/22 07/11/23 History cariprazine 4.5 mg capsule 4.5 mg PO Q24H 09/10/22 07/11/23 History (Vraylar) cetirizine 10 mg tablet (24Hour 10 mg PO DAILY PRN allergy symptoms 09/10/22 07/11/23 History Allergy) clonazepam 1 mg tablet 1 mg 09/10/22 History duloxetine 60 mg capsule,delayed mg PO 09/10/22 History release ferrous sulfate 325 mg (65 mg 325 mg PO BID 09/10/22 07/11/23 History iron) tablet (FeroSul) gabapentin 600 mg tablet 1,200 mg PO DAILY 09/10/22 07/11/23 History (Neurontin) gabapentin 600 mg tablet 600 mg PO DAILY 09/10/22 07/11/23 History (Neurontin) losartan 50 mg tablet (Cozaar) 50 mg PO DAILY 09/10/22 07/11/23 History magnesium 200 mg tablet 400 mg PO BID 09/10/22 07/11/23 History melatonin 12 mg tablet 12 mg PO .HS PRN sleep 09/10/22 07/11/23 History omeprazole 20 mg capsule,delayed 20 mg 09/10/22 History release ropinirole 4 mg tablet mg 09/10/22 History trazodone 150 mg tablet 300 mg 09/10/22 History tizanidine 4 mg capsule 4 mg PO TID PRN muscle spasticity 02/18/23 07/11/23 History carvedilol 6.25 mg tablet mg 07/11/23 History Allergies Allergy/AdvReac Type Severity Reaction Status Date / Time levetiracetam [From [facility] Allergy Severe Verified 07/11/23 22:09 adhesive Allergy Intermediate Blister Verified 07/11/23 22:09 Penicillins Allergy Intermediate Verified 07/11/23 22:09 tetracycline Allergy Intermediate Verified 07/11/23 22:09 milnacipran [From [facility]] AdvReac Intermediate Agitated Verified 07/11/23 22:09 prochlorperazine AdvReac Intermediate Agitated Verified 07/11/23 22:09 [From Compazine] Exam Constitutional Documenting provider has reviewed patient's vital signs: yes Common normals: no apparent distress, oriented x3, healthy appearing, alert and well nourished General appearance: cooperative Nutritional appearance: obese HENMT Common normals: normocephalic, hearing grossly normal bilaterally and moist oral mucous membranes Head and scalp: normocephalic Eye Common normals: PERRL Pupil: PERRL Neck & C-Spine Common normals: full ROM General: normal visual inspection Chest Common normals: inspection of chest normal Respiratory Common normals: normal respiratory effort, no retractions and no use of accessory muscles Back & Pelvis Lumbar spine/lower back: lumbar ROM normal and pain with ROM Sacroiliac joints: SI joint(s) abnormal Other: negative facet loading pain over bilateral PSIS, positive autumn fadir thigh thrust and gaenslens Extremity Common normals: normal to inspection and full ROM Left lower extremity: hip joint Other: no pain with external rotation and internal rotation of left hip Neuro Common normals: oriented x3, CN's II-XII intact bilaterally, moves all extremities, no focal motor deficits, no sensory deficits noted and deep tendon reflexes 2+ bilaterally Sensorium/orientation: alert Gait (neuro): normal gait Motor exam: strength 5/5 throughout and no movement abnormalities noted Psych Common normals: mental status grossly normal, thought process normal, cooperative, affect normal, speech normal and activity/motor behavior normal Speech: normal speech Thought process: normal thought process Results Additional Findings Additional findings: If on a controlled substance or opioids, I have checked an [place] report on this patient and there are no aberrancies noted in the prescribing history.??If on a controlled substance or opioid a drug screen was completed and reviewed within the last year, and if there has not been a drug screen completed we ordered one today to monitor higher risk, state monitored pain medication use. As part of providing excellent, safe, comprehensive care, the following was completed at our patient's visit: 1. A medication reconciliation and review to ensure accurate knowledge of current/active medications, including asking our patients to inform us about any [id number] medications or herbal remedies/nutritional supplements/alternative remedies. 2. A review to specifically ensure our patients have had annual screening for screening for depression, screening for tobacco use, and screening for unhealthy alcohol use. For concerning screenings had a discussion with the patient, provided patient education, and recommended follow-up with primary care provider when appropriate. If patient noted with a risk of falling, they received education on strength, gait, and balance training to prevent future risk of falling. Assessment and Plan Assessment and Plan (1) Unspecified mononeuropathy of right lower limb: (2) Unspecified mononeuropathy of left lower limb: (3) Sacroiliitis: Plan bilateral LCIH nerve block under fluoroscopy working towards RFA continue f/u with Dr Díaz for right knee OA and possible TKA f/u after injection
== END 2023-07-23 14:44 | disposition home or self-care (01) ==
PROVIDERS: PCP Nurse Practitioner; Visit Provider Nurse Practitioner
DX: M46.1 Sacroiliitis, not elsewhere classified (principal)
CPT/HCPCS: G0463

== ENCOUNTER 2023-07-29 06:10 | Outpatient (OUT) | payer MEDICARE, SELFPAY ==
--- OUTSIDE RECORDS SUMMARY | 2023-07-29 06:18 | XMS_ITS | CCD ---
Author Organization [facility] Care Team Providers Care Timber Watchman Name Role Phone EBHEIM, SUKI Admitting Unavailable EBRAHEIM, SUKI Attending Unavailable AICHHOLZ, ADELAIDA Referring Unavailable AICHHOLZ, ADELAIDA Primary Care Unavailable KS Procedure Practitioner Unavailab HELADIO JacobIL Surgeon Unavailable KS Procedure Practitioner Unavailab CHAPARRITA Goncalves Surgeon Unavailable BRIDGETTE MACEDO Admitting Unavailable BRIDGETTE MACEDO Attending Unavailable AICHHOLZ, GAS SHOVEL OPERATOR ADELAIDA Primary Care Unavailable ZIMMER ., DR FINA Iverson Admitting Unavailable ZIMMER ., DR FINA Iverson Attending Unavailable AICHHOLZ, GAS SHOVEL OPERATOR ADELAIDA Primary Care Unavailable MCDANIEL ., ZELDA Consulting Unavailable LAKSHMIPATHY ., NARENDRANATH Consulting Paula vailable LAKSHMIPATHY ., NARENDRANATH Admitting Paula vailable LAKSHMIPATHY ., NARJEANARANATH Attending Paula vailable AICHHOLZ, GAS SHOVEL OPERATOR ADELAIDA Primary Care Unavailable LAKSHMIPATHY ., NARENDRANATH Consulting Paula vailable AICHHOLZ, GAS SHOVEL OPERATOR ADELAIDA Primary Care Unavailable MARKER ., DR CHAUDHRY Admitting Unavailable MARKER ., DR CHAUDHRY Attending Unavailable MARKER ., DR CHAUDHRY Consulting Unavailable AICHHOLZ, GAS SHOVEL OPERATOR ADELAIDA Admitting Unavailable AICHHOLZ, GAS SHOVEL OPERATOR ADELAIDA Attending Unavailable AICHHOLZ, GAS SHOVEL OPERATOR ADELAIDA Primary Care Unavailable ZIMMER ., DR FINA Iverson Admitting Unavailable ZIMMER ., DR FINA Iverson Attending Unavailable AICHHOLZ, GAS SHOVEL OPERATOR ADELAIDA Primary Care Unavailable MCDANIEL ., ZELDA Consulting Unavailable ZIMMER ., DR FINA Iverson Admitting Unavailable ZIMMER ., DR FINA Iverson Attending Unavailable AICHHOLZ, GAS SHOVEL OPERATOR ADELAIDA Primary Care Unavailable MCDANIEL ., ZELDA Consulting Unavailable AICHHOLZ, GAS SHOVEL OPERATOR ADELAIDA Admitting Unavailable AICHHOLZ, GAS SHOVEL OPERATOR ADELAIDA Attending Unavailable AICHHOLZ, GAS SHOVEL OPERATOR ADELAIDA Primary Care Unavailable AICHHOLZ, GAS SHOVEL OPERATOR ADELAIDA Consulting Unavailable AICHHOLZ, GAS SHOVEL OPERATOR ADELAIDA Admitting Unavailable AICHHOLZ, GAS SHOVEL OPERATOR ADELAIDA Attending Unavailable AICHHOLZ, GAS SHOVEL OPERATOR ADELAIDA Primary Care Unavailable AICHHOLZ, GAS SHOVEL OPERATOR ADELAIDA Consulting Unavailable MISC, DR COTE Admitting Unavailable MISC, DR COTE Attending Unavailable AICHHOLZ, GAS SHOVEL OPERATOR ADELAIDA Primary Care Unavailable AICHHOLZ, GAS SHOVEL OPERATOR ADELAIDA Consulting Unavailable PRITESHC, DR COTE Consulting Unavailable STARR, DR KINGSLEY Atkins Consulting Unavailable ZIMMER ., DR FINA Iverson Admitting Unavailable ZIMMER ., DR FINA Iverson Attending Unavailable AICHHOLZ, GAS SHOVEL OPERATOR ADELAIDA Primary Care Unavailable MCDANIEL ., ZELDA Consulting Unavailable ZIMMER ., DR FINA Iverson Admitting Unavailable ZIMMER ., DR FINA Iverson Attending Unavailable AICHOLZ, GAS SHOVEL OPERATOR ADELAIDA Primary Care Unavailable ZIMMER ., DR FINA Iverson Consulting Unavailable OMID LAY Consulting Unavailable ZIMMER ., DR FINA Iverson Admitting Unavailable ZIMMER ., DR FINA Iverson Attending Unavailable AICHOLZ, GAS SHOVEL OPERATOR ADELAIDA Primary Care Unavailable MCDANIEL ., ZELDA Consulting Unavailable AICHHOLZ, GAS SHOVEL OPERATOR ADELAIDA Primary Care Unavailable HALKER ., ARIAN Admitting Unavailable HALKER ., ARIAN Attending Unavailable LAKSHMIPATHY ., NARENDRANATH Consulting Paula vailable HALKER ., ARIAN Consulting Unavailable LAKSHMIPATHY ., NARENDRANATH Admitting Paula vailable LAKSHMIPATHY ., NARENDRANATH Attending Paula vailable AICHHOLZ, GAS SHOVEL OPERATOR ADELAIDA Primary Care Unavailable LAKSHMIPATHY ., NARENDRANATH Consulting Paula vailable AICHHOLZ, GAS SHOVEL OPERATOR ADELAIDA Admitting Unavailable AICHHOLZ, GAS SHOVEL OPERATOR ADELAIDA Attending Unavailable AICHHOLZ, GAS SHOVEL OPERATOR ADELAIDA Primary Care Unavailable AICHHOLZ, GAS SHOVEL OPERATOR ADELAIDA Consulting Unavailable BRIDGETTE MACEDO Admitting Unavailable BRIDGETTE MACEDO Attending Unavailable AICHHOLZ, GAS SHOVEL OPERATOR ADELAIDA Primary Care Unavailable STARR, DR KINGSLEY Atkins Consulting Unavailable BRIDGETTE MACEDO Consulting Unavailable PURA, GILMER Admitting Unavailable PURA, GILMER Attending Unavailable PURA, GILMER Consulting Unavailable AICHHOLZ, GAS SHOVEL OPERATOR ADELAIDA Primary Care Unavailable AICHHOLZ, GAS SHOVEL OPERATOR ADELAIDA Primary Care Unavailable DR WILLI RINALDI Admitting Unavailable DR WILLI RINALDI Attending Unavailable DEEJAY, DR WILLI Atkins Consulting Unavailable AICHHOLZ, GAS SHOVEL OPERATOR ADELAIDA Primary Care Unavailable ALMAZ ., DANNY Admitting Unavailable ALMAZ ., DANNY Attending Unavailable DR KINGSLEY CLEMENTS Consulting Unavailable ALMAZ ., DANNY Consulting Unavailable LAKSHMIPATHY ., NARENDRANATH Admitting Paula vailable LAKSHMIPATHY ., NARENDRANATH Attending Paula vailable AICHHOLZ, GAS SHOVEL OPERATOR ADELAIDA Primary Care Unavailable AICHHOLZ, GAS SHOVEL OPERATOR ADELAIDA Admitting Unavailable AICHHOLZ, GAS SHOVEL OPERATOR ADELAIDA Attending Unavailable AICHHOLZ, GAS SHOVEL OPERATOR ADELAIDA Primary Care Unavailable AICHHOLZ, GAS SHOVEL OPERATOR ADELAIDA Admitting Unavailable AICHHOLZ, GAS SHOVEL OPERATOR ADELAIDA Attending Unavailable AICHHOLZ, GAS SHOVEL OPERATOR ADELAIDA Primary Care Unavailable AICHHOLZ, GAS SHOVEL OPERATOR ADELAIDA Consulting Unavailable ZIEBER, DR KINGSLEY Atkins Consulting Unavailable HALKER ., ARIAN Admitting Unavailable HALKER ., ARIAN Attending Unavailable AICHHOLZ, GAS SHOVEL OPERATOR ADELAIDA Primary Care Unavailable Aichholz, Adelaida J Primary Care Provider [phone] MD Gaudencio Monk Admit Provider MD Gaudencio Monk Attending Provider Dariel RN Andreina Other Provider Unavailable JOHANN Pina Other Provider Unavailable JOHANN Hurtado Other Provider Unavailable JOHANN Crooks Other Provider Unavailable JOHANN Mejias Other Provider Unavailable Judy RN Elzbieta Other Provider Unavailable MD Walker Pringle Other Provider ROSS Marsh Other Provider [phone] DO Jessica Murillo Other Provider [phone] MD Obdulio Bragg Other Provider [phone] DO Joon Cristina Other Provider [phone] MD Torin Robert Other Provider MD Dawn Barrera Other Provider [phone] Karlene, ANP-BC Mari Other Provider MD [...] Strong Consulting Unavailable Joellen Le Consulting Unavailable DoSeevro navarro Consulting Unavailab Rao Tompkins Consulting Unavailable Yuan Shi Consulting Unavailable Delroy Ramirez Consulting Unavailable Berta Comer Consulting Unavailable Negrito Ruiz Consulting Unavailable Lacho Singh Consulting Unavailable ObRachana romnao Consulting Unavailable [place] Consulting Unavailable DaromaJeff atkins Consulting Unavailable Urmila Rinaldi Consulting Unavailable Bnia Mayberry Consulting Unavailable Mir Bradford Consulting Unavailable Te Da Silva Consulting Unavailable Debra Landaverde Consulting Unavailable Jace Graham Admitting Unavailable Jace Graham Attending Unavailable Adelaida Carrion Primary Care Unavailable Eduardo Monk Admitting Unavailab Eduardo Connolly Attending Unavailab Adelaida Wagner Primary Care Unavailable ASHLEIGH HINES Attending Unavailable ADELAIDA CARRION Attending Unavailable ASHLEIGH HINES Attending Unavailable ADELAIDA CARRION Attending Unavailable ADELAIDA CARRION Attending Unavailable JR. HARRY GEORGE C Attending Unavaila ble ADELAIDA CARRION Attending Unavailable Allergies Allergy Classification Reported Allergen(s) Allergy Type Date of Onset Reaction(s) Facility (7 sources) Adhesive Tape; Translations: [ADHESIVE TAPE] Propensity to adverse reactions (disorder) 04-06-[address] [facility] Repository (3 sources) levETIRAcetam; Translations: [KEPPRA] Drug Allergy 07-02-[address] [facility] Repository (3 sources) milnacipran; Translations: [SAVELLA] Drug Allergy 03-14-[address] [facility] Repository (1 source) Penicillin; Translations: [PENICILLIN] Drug Allergy 01-16-[address] [facility] Repository (5 sources) Prochlorperazin e; Translations: [COMPAZINE] Drug Allergy 03-14-[address] [facility] Repository (12 sources) Tetracycline; Translations: [TETRACYCLINE] Drug Allergy 04-06-19 13 Hives, Unknown [facility] Repository (4 sources) Penicillins Drug allergy (disorder) 04-06-19 13 Unknown Reaction [facility] Repository (9 sources) levETIRAcetam; Translations: [levetiracetam] Drug Allergy 12-13-19 22 Hallucinations , Other [facility] (9 sources) milnacipran; Translations: [milnacipran] Drug Allergy 12-13-19 22 hives, Hallucinations , Other, Unknown [facility] (7 sources) Prochlorperazin e; Translations: [prochlorperazi ne] Drug Allergy 12-13-19 22 Unknown, Other [facility] (2 sources) Penicillin G Drug Allergy as a child [facility]. [facility] Other (2 sources) Tetracaine Drug Allergy Unknown Hyperpia Other (4 sources) Penicillins Drug Intolerance 12-13-19 22 Anaphylaxis [facility] (4 sources) Other Propensity to adverse reactions 12-13-19 22 Other [facility] (4 sources) Wound Dressing Adhesive Drug Allergy 09-20-19 23 Rash, Unknown [facility] (1 source) Penicillin Drug Allergy 12-20-19 23 [facility]ository (1 source) Penicillins Drug allergy (disorder) 03-23-20 [facility] Repository (1 source) Tetracaine Drug Allergy 12-20-19 [facility] Repository Medications Current Medications Medication Drug [...] 11:00pm Start: 11-17-2022 take 1 tablet by [facility] once daily Ferrous Sulfate (Iron (Ferrous Sulfate)) [...] 2023 12:00am take 2 tablets by mo [facility] once daily at bedtime Melatonin 10 MG 2 TABLETS Orally QHS Active Melatonin 12 MG tablet dispersible (4 sources) Melatonin 12 MG tablet dispersible 1 (one) time each day at the same time. 0 Active Multiple Vitamins-Minerals (BARIATRIC MULTIVITAMINS/IRON PO) (4 sources) Multiple Vitamins-Minerals (BARIATRIC MULTIVITAMINS/IRON PO) Bariatric Multivitamins/Iron 0 Active Dwesdiparklt-Ayr-Mrij-Fa- Vit K (Bariatric Multivitamins) 45 mg iron- 800 mcg-120 mcg Capsule (2 sources) Start: 11-17-2022 take 1 capsule by mouth once daily Wjjbhfzwzjxw-Yrh-Typi-Fa -Vit K (Bariatric Multivitamins) 45 mg iron- 800 mcg-120 mcg Capsule Active 1 CAP PO Daily November 16, 2022 11:00pm Start: 11-17-2022 take 1 capsule by [facility] once daily Fugoslqvufyy-Vfq-Kqly-Fa-Vit K (Bariatri c Multivitamins) 45 mg iron- 800 mcg-120 mcg Capsule Active 1 CAP PO Daily November 17, 2022 12:00am nystatin 100 unt/mg topical powder (4 sources) Polyene Antifungal nystatin (Myc ostatin) 861969 UNIT/GM powder Apply 1 application topically in [...] (4 sources) Hemorrhoids; Translations: [Unspecified hemorrhoids] Onset: 05-18-19 [...] 02-20-2022 Episodic Other aftercare (1 source) Other group home (current) drug therapy; Translations: [[facility] CURRENT DRUG THERAPY] Onset: 04-29-2022 Episodic Other [...] Amphetamines Ql (U) Negative Negative [facility] Barbiturates [Presence] in U rine by Screen methodOrdered By: Jace Graham on 03-23-2023 Barbiturates Screen Ql (U) Negative Negative [facility] Benzodiazepines Screen Ql (U )Ordered By: Jace Graham on 03-23-2023 Benzodiazepines Ql (U) Negative Negative [facility] Benzoylecgonine [Presence] i n Urine by Screen methodOrdered By: Jace Graham on 03-23-2023 Benzoylecgonine Screen Ql (U) Negative Negative [facility] Cannabinoids [Presence] in U rine by Screen methodOrdered By: Jace Graham on 03-23-2023 Cannabinoids Screen Ql (U) Negative Negative [facility] Comment on above: These are unconfirme d results and should not be used for legal purposes. Drug Cut-Off Concentration: AMPH 1000 ng/mL ELKIN 200 ng/mL ATIYA 200 ng/mL COCM 300 ng/mL OP 300 ng/mL PCP 25 ng/mL THC 20 ng/mL Drug Screen,Urineon 03-23-20 Amphetamine Screen,Urine Negative Normal Negative [facility] Comment on above: Performed By: #### U RDS #### [address] Barbiturate Screen,Urine Negative Normal Negative [facility] Comment on above: Performed By: #### U RDS #### [address] Benzodiazepines Screen,Urine Negative Normal Negative [facility] Comment on above: Performed By: #### U RDS #### [address] Cannabinoid Screen,Urine Negative Normal Negative [facility] Comment on above: Result Comment: Thes e are unconfirmed results and should not be used for legal purposes. Drug Cut-Off Concentration: AMPH 1000 ng/mL ELKIN 200 ng/mL ATIYA 200 ng/mL COCM 300 ng/mL OP 300 ng/mL PCP 25 ng/mL THC 20 ng/mL PERFORMED BY: [place] [address] PATHOLOGIST BAG PRESS OPERATOR AN CURRY M.D. Performed By: #### U RDS #### [place] [address] [place] Cocaine Screen,Urine Negative Normal Negative [facility] Comment on above: Performed By: #### U RDS #### [place] [address] [place] Opiate Screen,Urine Negative Normal Negative [facility] Comment on above: Performed By: #### U RDS #### [place] [address] [place] Phencyclidine Screen,Urine Negative Normal Negative [facility] Comment on above: Performed By: #### U RDS #### [facility] [address] Opiates [Presence] in Urine by Screen methodOrdered By: Jace Graham on 03-23-2023 Opiates Screen Ql (U) Negative Negative [facility] Phencyclidine Screen Ql (U)O rdered By: Jace Graham on 03-23-2023 Phencyclidine Ql (U) Negative Negative [facility] Cholesterol [Mass/volume] in Serum or PlasmaOrdered By: Eduardo Monk on 11-18-2022 Cholesterol [Mass/Vol] 159 mg/dL 140-200 [facility] Comment on above: Chol less than 200 m g/dl low riskChol 201-239 mg/dl borderline riskChol 240 mg/dl and greater high risk Cholesterol in LDL Calc [Mas s/Vol]Ordered By: Eduardo Monk on 11-18-2022 Cholesterol in LDL [Mass/Vol] 84 mg/dL 0-100 [facility] Comment on above: LDL ATP III CLASSIFI CATIONLDL less than 100 mg/dL OptimalLDL 100-129 mg/dL Near or above optimalLDL 130-159 mg/dL Borderline highLDL 160-189 mg/dL HighLDL greater than 189 mg/dL Very high Cholesterol in VLDL Calc [Ma ss/Vol]Ordered By: Eduardo Monk on 11-18-2022 Cholesterol in VLDL [Mass/Vol] 28 mg/dL [facility] Lipid Panelon 11-18-2022 Cholesterol [Mass/Vol] 159 mg/dL Normal 140-200 [facility] Comment on above: Order Comment: teri barney to tomorrow morning Result Comment: Chol less than 200 mg/dl low risk Chol 201-239 mg/dl borderline risk Chol 240 mg/dl and greater high risk Performed By: #### L IPID #### [facility] [address] [place] [id number] [facility] Cholesterol in HDL [Mass/Vol] 46 mg/dL Normal 23-92 [facility] Comment on above: Order Comment: teri barney to tomorrow morning Result Comment: HDL CHOL ATP-III CLASSIFICATION Cardiovascular Risk HDL > or equal to 60 mg/dL LOW HDL < 40 mg/dL HIGH Performed By: #### L IPID #### [facility] [address] Cholesterol.total/Chol esterol in HDL [Mass ratio] 3.5 {ratio} Normal <5.0 [facility] Comment on above: Order Comment: teri barney to tomorr morning Result Comment: PERF ORMED BY: [place] [address] PATHOLOGIST BAG PRESS OPERATOR AN CURRY M.D. Performed By: #### L IPID #### [facility] [address] LDL Cholesterol,Calculated 84 mg/dL Normal 0-100 [facility] Comment on above: Order Comment: teri barney to orr morning Result Comment: LDL ATP III CLASSIFICATION LDL less than 100 mg/dL Optimal LDL 100-129 mg/dL Near or above optimal LDL 130-159 mg/dL Borderline high LDL 160-189 mg/dL High LDL greater than 189 mg/dL Very high Performed By: #### L IPID #### [facility] [address] Triglyceride w/Reflex 144 mg/dL Normal 0-149 [facility] Comment on above: Order Comment: teri barney to orr Result Comment: TRIG ATP III CLASSIFICATION TRIG less than 150 mg/dL Normal TRIG 150-199 mg/dL Borderline high TRIG 200-500 mg/dL High TRIG greater than 500 mg/dL Very high Standard traceable to the Center for Disease Conrtrol and Prevention (CDC) test method. Performed By: #### L IPID #### [facility] [address] VLDL CHOLESTEROL 28 mg/dL Normal [facility] Comment on above: Order Comment: teri barney to orr morning Performed By: #### L IPID #### [facility] [address] Serum or plasma high density lipoprotein (HDL) cholesterol measurementOrdered By: Eduardo Monk on 11-18-2022 Cholesterol in HDL [Mass/Vol] 46 mg/dL 23-92 [facility] Comment on above: HDL CHOL ATP-III CLA SSIFICATION Cardiovascular RiskHDL > or equal to 60 mg/dL LOWHDL < 40 mg/dL HIGH Serum or plasma total choles terol/high density lipoprotein (HDL) cholesterol mass ratOrdered By: Eduardo Monk on 11-18-2022 Cholesterol.total/Chol esterol in HDL [Mass ratio] 3.5 {ratio} <5.0 [facility] Thyroid Stimulating Hormoneo n 11-18-2022 TSH Qn 2.13 m[IU]/L Normal 0.45-5.33 [facility] Comment on above: Performed By: #### T SH3, [id number] #### [address] Thyrotropin [Units/volume] i n Serum or PlasmaOrdered By: Eduardo Monk on 11-18-2022 TSH Qn 2.13 m[IU]/L 0.45-5.33 [facility] Triglyceride [Mass/volume] i n Serum or PlasmaOrdered By: Eduardo Monk on 11-18-2022 Triglyceride [Mass/Vol] 144 mg/dL 0-149 [facility] Comment on above: TRIG ATP III CLASSIF ICATIONTRIG less than 150 mg/dL NormalTRIG 150-199 mg/dL Borderline highTRIG 200-500 mg/dL High TRIG greater than 500 mg/dL Very highStandard traceable to the Center for Disease Conrtrol and Prevention (CDC) test method. Vitamin D 25 Hydroxy Totalon 11-18-2022 Vitamin D 25 Hydroxy Total 50.4 ng/mL Normal 30-100 [facility] Comment on above: Result Comment: SKYLER MIN D STATUS 25(OH)VITAMIN D RANGE (ng/mL) Deficient <20 Insufficient 20 to <30 Sufficient 30 to 100 Reference: Bin MF,Lakshmi NC, Cristian SMART, et al. Evaluation,treatment, and prevention of vitamin D deficiency; an Endocrine Society clinical practice guideline. JCEM. 2010; 96(7):1911-30. PERFORMED BY: [facility] [address] [place] [address] PATHOLOGIST BAG PRESS OPERATOR AN CURRY M.D. Performed By: #### T SH3, [id number] #### [facility] [address] Vitamin D+Metabolites [Mass/ volume] in Serum or PlasmaOrdered By: Eduardo Monk on 11-18-2022 Vitamin D+Metabolites [Mass/Vol] 50.4 ng/mL 30-100 [facility] Comment on above: VITAMIN D STATUS 25( [place])VITAMIN D RANGE (ng/mL) Deficient <20 Insufficient 20 to <30Sufficient 30 to 100Reference: Bin MF,Lakshmi NC, Cristian SMART, et al. Evaluation,treatment, and prevention of vitamin D deficiency; an Endocrine Society clinical practice guideline. JCEM. 2010; 96(7):1911-30. CBC AUTO DIFFon 07-25-2022 BASO # 0.1 103/ul Normal 0.0-0.1 [facility] Comment on above: Performed By: #### A 1C #### [facility] [address] [address] [address] Bebeto Alvarado Basophils/100 WBC (Bld) 0.6 % Normal 0.2-2.0 [facility] Comment on above: Performed By: #### A 1C #### [facility] [address] [address] [address] Bebeto Alvarado EO # 0.2 103/ul Normal 0.0-0.7 [facility] Comment on above: Performed By: #### A 1C #### [facility] [address] [address] [address] Bebeto Alvarado Eosinophils/100 WBC (Bld) 2.3 % Normal 0.9-7.0 [facility] Comment on above: Performed By: #### A 1C #### [facility] [address] [address] [address] Bebeto Alvarado Erythrocyte distribution width (RBC) [Ratio] 13.8 % Normal 11.0-15.0 [facility] Comment on above: Performed By: #### A 1C #### [facility] [address] [place] [address] Dr. Bebeto Alvarado Hematocrit (Bld) [Volume fraction] 41.2 % Normal 36.0-48.0 [facility] Comment on above: Performed By: #### A 1C #### [facility] [address] [place] [address] Dr. Bebeto Alvarado Hemoglobin (Bld) [Mass/Vol] 13.2 g/dL Normal 12.0-16.0 [facility] Comment on above: Performed By: #### A 1C #### [facility] [address] [place] [address] Dr. Bebeto Alvarado IG # 0.03 10e3/ul Normal 0.00-0.03 [facility] Comment on above: Performed By: #### A 1C #### [facility] [address] [place] [address] Dr. Bebeto Alvarado IG % 0.4 % Normal 0.0-0.5 [facility] Comment on above: Performed By: #### A 1C #### [facility] [address] [place] [address] Dr. Bebeto Alvarado LYMPH # 2.1 103/ul Normal 1.2-3.8 [facility] Comment on above: Performed By: #### A 1C #### [facility] [address] [place] [address] Dr. Bebeto Alvarado Lymphocytes/100 WBC (Bld) 25.9 % Normal 20.5-60.0 [facility] Comment on above: Performed By: #### A 1C #### [facility] [address] [place] [address] Dr. Bebeto Alvarado MANUAL DIFF REQ NO Normal [facility] Comment on above: Performed By: #### A 1C #### [facility] [address] [place] [address] Dr. Bebeto Alvarado MCH (RBC) [Entitic mass] 28.0 pg Normal 26.7-34.0 [facility] Comment on above: Performed By: #### A 1C #### [facility] [address] [place] [address] Dr. Bebeto Alvarado MCHC (RBC) [Mass/Vol] 32.0 g/dL Normal 29.9-35.2 [facility] Comment on above: Performed By: #### A 1C #### [facility] [address] [place] [address] Dr. Bebeto Alvarado MCV (RBC) [Entitic vol] 87.5 fL Normal 81.0-99.0 [facility] Comment on above: Performed By: #### A 1C #### [facility] [address] [address] [address] Bebeto Alvarado MONO # 0.5 103/ul Normal 0.3-0.8 [facility] Comment on above: Performed By: #### A 1C #### [facility] [address] [place] [address] Dr. Bebeto Alvarado Monocytes/100 WBC (Bld) 6.6 % Normal 1.7-12.0 [facility] Comment on above: Performed By: #### A 1C #### [facility] [address] [place] [address] Dr. Bebeto Alvarado NEUT # 5.1 103/ul Normal 1.4-6.5 [facility] Comment on above: Performed By: #### A 1C #### [facility] [address] [place] [address] Dr. Bebeto Alvarado Neutrophils/100 WBC (Bld) 64.2 % Normal 43.0-75.0 [facility] Comment on above: Performed By: #### A 1C #### [facility] [address] [place] [address] Dr. Bebeto Alvarado Platelet mean volume (Bld) [Entitic vol] 11.2 fL Normal 9.5-13.5 [facility] Comment on above: Performed By: #### A 1C #### [facility] [address] [place] [address] Dr. Bebeto Alvarado PLT 252 103/ul Normal 150-450 [facility] Comment on above: Performed By: #### A 1C #### [facility] [address] [place] [address] Dr. Bebeto Alvarado RBC 4.71 106/ul Normal 4.20-5.40 [facility] [facility] Comment on above: Performed By: #### A 1C #### [facility] [address] [address] [address] Bebeto Alvarado WBC 8.0 103/ul Normal 4.0-11.0 [facility] Comment on above: Performed By: #### A 1C #### [facility] [address] [address] [address] Bebeto Alvarado GLYCOHEMOGLOBIN A1Con 2022 ADA RECOMMENDATION SEE BELOW Normal [facility] Comment on above: Result Comment: ADA RECOMMENDED LIMIT 4.0 - 6.0 ADA THERAPEUTIC TARGET < 7.0 ACTION SUGGESTED > 7.0 Performed By: #### A 1C #### [facility] [address] [place] [address] Dr. Bebeto Alvarado Glucose [Mass/Vol] 114 mg/dL Normal [facility] Comment on above: Performed By: #### A 1C #### [facility] [address] [address] [address] Bebeto Alvarado HbA1c (Bld) [Mass fraction] 5.6 % Normal 4.5-6.2 [facility] Comment on above: Performed By: #### A 1C #### [facility] [address] [place] [address] Dr. Bebeto Alvarado IRONon 07-25-2022 Iron [Mass/Vol] 60.0 ug/dL Normal 50.0-170.0 [facility] Comment on above: Performed By: #### V ITB12, IRON #### [facility] [address] [place] [address] Dr. Bebeto Alvarado LIPID PROFILEon 07-25-2022 CHOL-HDL RATIO NORM SEE BELOW Normal [facility] Comment on above: Result Comment: 3.3 - 4.4 LOW RISK 4.4 - 7.1 AVERAGE RISK 7.1 - 11.0 MODERATE RISK >11.0 HIGH RISK Performed By: #### C MP, LIPID #### [facility] [address] [place] [address] Dr. Bebeto Alvarado Cholesterol [Mass/Vol] 144 mg/dL Normal <=200 Th e [facility] Comment on above: Performed By: #### C MP, LIPID #### [facility] [address] [address] [address] Bebeto Alvarado Cholesterol in HDL [Mass/Vol] 39 mg/dL Critically low 40-60 [facility] Comment on above: Performed By: #### C MP, LIPID #### [facility] [address] [address] [address] Bebeto Alvarado Cholesterol in LDL [Mass/Vol] 74.6 mg/dL Normal [facility] Comment on above: Performed By: #### C MP, LIPID #### [facility] [address] [address] [address] Bebeto Alvarado Cholesterol.total/Chol esterol in HDL [Mass ratio] 3.7 {ratio} Normal [facility] Comment on above: Performed By: #### C MP, LIPID #### [facility] [address] [address] [address] Bebeto Alvarado HDL NORMAL > or = 60 mg/dl - LO W CARDIOVASCULAR RISK <40 mg/dl - HIGH CARDIOVASCULAR RISK Normal [facility] Comment on above: Performed By: #### C MP, LIPID #### [facility] [address] [address] [address] Bebeto Alvarado LDL CALC NORMAL SEE BELOW Normal [facility] Comment on above: Result Comment: <100 mg/dl OPTIMAL 100 - 129 mg/dl NEAR OR ABOVE OPTIMAL 130 - 159 mg/dl BORDERLINE HIGH 160 - 189 mg/dl HIGH >190 mg/dl VERY HIGH Performed By: #### C MP, LIPID #### [facility] [address] [address] [address] Bebeto Alvarado Triglyceride [Mass/Vol] 152 mg/dL Critically high <=150 [facility] Comment on above: Performed By: #### C MP, LIPID #### [facility] [address] [address] [address] Bebeto Alvarado VLDL CALC 30.4 mg/dL Normal [facility] Comment on above: Performed By: #### C MP, LIPID #### [facility] [address] [address] [address] Bebeto Alvarado PROF 14(COMP METB)on 023 Albumin [Mass/Vol] 3.7 g/dL Normal 3.4-5.0 [facility] Comment on above: Performed By: #### C MP, LIPID #### [facility] [address] [place] [address] Dr. Bebeto Alvarado Albumin/Globulin [Mass ratio] 0.9 {ratio} Normal [facility] Comment on above: Performed By: #### C MP, LIPID #### [facility] [address] [place] [address] Dr. Bebeto Alvarado ALP [Catalytic activity/Vol] 90 U/L Normal 46-116 [facility] Comment on above: Performed By: #### C MP, LIPID #### [facility] [address] [place] [address] Dr. Bebeto Alvarado ALT [Catalytic activity/Vol] 38 U/L Normal 14-59 [facility] Comment on above: Performed By: #### C MP, LIPID #### [facility] [address] [place] [address] Dr. Bebeto Alvarado Anion gap [Moles/Vol] 12.1 mmol/L Normal [facility] Comment on above: Performed By: #### C MP, LIPID #### [facility] [address] [place] [address] Dr. Bebeto Alvarado AST [Catalytic activity/Vol] 26 U/L Normal 15-37 [facility] Comment on above: Performed By: #### C MP, LIPID #### [facility] [address] [place] [address] Dr. Bebeto Alvarado Bilirubin [Mass/Vol] 0.3 mg/dL Normal 0.2-1.0 [facility] Comment on above: Performed By: #### C MP, LIPID #### [facility] [address] [place] [address] Dr. Bebeto Alvarado Calcium [Mass/Vol] 9.3 mg/dL Normal 8.5-10.1 [facility] Comment on above: Performed By: #### C MP, LIPID #### [facility] [address] [address] [address] Bebeto Alvarado Chloride [Moles/Vol] 107 mmol/L Normal 98-107 [facility] Comment on above: Performed By: #### C MP, LIPID #### [facility] [address] [address] [address] Bebeto Alvarado CO2 [Moles/Vol] 27.9 mmol/L Normal 21.0-32.0 [facility] Comment on above: Performed By: #### C MP, LIPID #### [facility] [address] [address] [address] Bebeto Alvarado Creatinine [Mass/Vol] 0.95 mg/dL Normal 0.55-1.02 [facility] Comment on above: Performed By: #### C MP, LIPID #### [facility] [address] [place] [address] Dr. Bebeto Alvarado EGFR-AF HAITIAN >60 Normal >=60 [facility] Comment on above: Performed By: #### C MP, LIPID #### [facility] [address] [place] [address] Dr. Bebeto Alvarado EGFR-NON AF HAITIAN 60 mL/min/1.73m2 Normal >=60 [facility] Comment on above: Performed By: #### C MP, LIPID #### [facility] [address] [place] [address] Dr. Bebeto Alvarado Globulin (S) [Mass/Vol] 3.9 g/dL Normal [facility] Comment on above: Performed By: #### C MP, LIPID #### [facility] [address] [address] [address] Bebeto Alvarado Glucose [Mass/Vol] 108 mg/dL Critically high 74-106 [facility] Comment on above: Performed By: #### C MP, LIPID #### [facility] [address] [address] [address] Bebeto Alvarado Potassium [Moles/Vol] 4.0 mmol/L Normal 3.5-5.1 [facility] Comment on above: Performed By: #### C MP, LIPID #### [facility] [address] [place] [address] Dr. Bebeto Alvarado Protein [Mass/Vol] 7.6 g/dL Normal 6.4-8.2 [facility] Comment on above: Performed By: #### C MP, LIPID #### [facility] [address] [place] [address] Dr. eBbeto Alvarado Sodium [Moles/Vol] 143 mmol/L Normal 136-145 [facility] Comment on above: Performed By: #### C MP, LIPID #### [facility] [address] [place] [address] Dr. Bebeto Alvarado Urea nitrogen [Mass/Vol] 15.0 mg/dL Normal 7.0-18.0 [facility] Comment on above: Performed By: #### C MP, LIPID #### [facility] [address] [place] [address] Dr. Bebeto Alvarado Urea nitrogen/Creatinine [Mass ratio] 15.8 mg/mg Normal [facility] Comment on above: Performed By: #### C MP, LIPID #### [facility] [address] [place] [address] Dr. Bebeto Alvarado UA RANDOM W/MICROSCOPICon BACTERIA NONE SEEN Normal NONE SEEN [facility] Comment on above: Performed By: #### A 1C #### [facility] [address] [place] [address] Dr. Bebeto Alvarado Bilirubin Ql (U) Negative Normal NEGATIVE [facility] Comment on above: Performed By: #### A 1C #### [facility] [address] [place] [address] Dr. Bebeto Alvarado CAST NONE SEEN Normal NONE SEEN [facility] Comment on above: Performed By: #### A 1C #### [facility] [address] [place] [address] Dr. Bebeto Alvarado Clarity (U) CLEAR Normal CLEAR [facility] Comment on above: Performed By: #### A 1C #### [facility] [address] [place] [address] Dr. Bebeto Alvarado Color (U) YELLOW Normal YELLOW [facility] Comment on above: Performed By: #### A 1C #### [facility] [address] [place] [address] Dr. Bebeto Alvarado Crystals LM Nom (Urine sed) NONE SEEN Normal NONE SEEN [facility] Comment on above: Performed By: #### A 1C #### [facility] [address] [place] [address] Dr. Bebeto Alvarado Epithelial cells LM Ql (Urine sed) NONE SEEN Normal NONE SEEN /RARE [facility] Comment on above: Performed By: #### A 1C #### [facility] [address] [place] [address] Dr. Bebeto Alvarado Glucose Ql (U) Negative Normal NEGATIVE [facility] Comment on above: Performed By: #### A 1C #### [facility] [address] [place] [address] Dr. Bebeto Alvarado Hemoglobin Ql (U) Negative Normal NEGATIVE [facility] Comment on above: Performed By: #### A 1C #### [facility] [address] [place] [address] Dr. Bebeto Alvarado Ketones Ql (U) Negative Normal NEGATIVE [facility] Comment on above: Performed By: #### A 1C #### [facility] [address] [place] [address] Dr. Bebeto Alvarado LEUKOCYTES Negative Normal NEGATIVE [facility] Comment on above: Performed By: #### A 1C #### [facility] [address] [place] [address] Dr. Bebeto Alvarado MUCOUS NONE SEEN Normal NONE SEEN [facility] Comment on above: Performed By: #### A 1C #### [facility] [address] [place] [address] Dr. Bebeto Alvarado Nitrite Ql (U) Negative Normal NEGATIVE [facility] Comment on above: Performed By: #### A 1C #### [facility] [address] [place] [address] Dr. Bbeeto Alvarado pH (U) 5.5 [pH] Normal 5-9 [facility] Comment on above: Performed By: #### A 1C #### [facility] [address] [place] [address] Dr. Bebeto Alvarado RBC NONE SEEN Abnormal 0-2 [facility] Comment on above: Performed By: #### A 1C #### [facility] [address] [place] [address] Dr. Bebeto Alvarado SPEC GRAVITY 1.030 Abnormal 1.005-<=1.02 5 [facility] Comment on above: Performed By: #### A 1C #### [facility] [address] [place] [address] Dr. Bebeto Alvarado UA PROTEIN Negative Normal NEGATIVE/ TRACE [facility] Comment on above: Performed By: #### A 1C #### [facility] [address] [place] [address] Dr. Bebeto Alvarado Urobilinogen Qn (U) 0.2 {Katerin'U}/dL Normal 0.2 - 1. 0 [facility] Comment on above: Performed By: #### A 1C #### [facility] [address] [place] [address] Dr. Bebeto Alvarado WBC NONE SEEN Normal NONE SEEN [facility] Comment on above: Performed By: #### A 1C #### [facility] [address] [place] [address] Dr. Bebeto Alvarado VITAMIN B12on 07-25-2022 Cobalamin (Vitamin B12) [Mass/Vol] 1684.0 pg/mL Critically high 193.0-986.0 [facility] Comment on above: Performed By: #### V ITB12, IRON #### [facility] [address] [place] [address] Dr. Bebeto Alvarado PROF CHEM 8 (BAS METB)on Anion gap [Moles/Vol] 12.2 mmol/L Normal [facility] Comment on above: Performed By: #### B MP #### [facility] [address] [place] [address] Dr. Bebeto Alvarado Calcium [Mass/Vol] 8.9 mg/dL Normal 8.5-10.1 [facility] Comment on above: Performed By: #### B MP #### [facility] [address] [place] [address] Dr. Bebeto Alvarado Chloride [Moles/Vol] 105 mmol/L Normal 98-107 [facility] Comment on above: Performed By: #### B MP #### [facility] [address] [address] [address] Bebeto Alvarado CO2 [Moles/Vol] 29.6 mmol/L Normal 21.0-32.0 [facility] Comment on above: Performed By: #### B MP #### [facility] [address] [address] [address] Bebeto Alvarado Creatinine [Mass/Vol] 0.95 mg/dL Normal 0.55-1.02 [facility] Comment on above: Performed By: #### B MP #### [facility] [address] [place] [address] Dr. Bebeto Alvarado EGFR-AF HAITIAN >60 Normal >=60 [facility] Comment on above: Performed By: #### B MP #### [facility] [address] [address] [address] Bebeto Alvarado EGFR-NON AF HAITIAN 60 mL/min/1.73m2 Normal >=60 [facility] Comment on above: Performed By: #### B MP #### [facility] [address] [place] [address] Dr. Bebeto Alvarado Glucose [Mass/Vol] 101 mg/dL Normal 74-106 [facility] Comment on above: Performed By: #### B MP #### [facility] [address] [place] [address] Dr. Bebeto Alvarado Potassium [Moles/Vol] 3.8 mmol/L Normal 3.5-5.1 [facility] Comment on above: Performed By: #### B MP #### [facility] [address] [address] [address] Bebeto Alvarado Sodium [Moles/Vol] 143 mmol/L Normal 136-145 [facility] Comment on above: Performed By: #### B MP #### [facility] [address] [address] [address] Bebeto Alvarado Urea nitrogen [Mass/Vol] 16.0 mg/dL Normal 7.0-18.0 [facility] Comment on above: Performed By: #### B MP #### [facility] [address] [place] [address] Dr. Bebeto Alvarado Urea nitrogen/Creatinine [Mass ratio] 16.8 mg/mg Normal [facility] Comment on above: Performed By: #### B MP #### [facility] [address] [place] [address] Dr. Bebeto Alvaardo CBC AUTO DIFFon 11-21-2021 BASO # 0.1 103/ul Normal 0.0-0.1 [facility] Comment on above: Performed By: #### A 1C #### [facility] [address] [place] [address] Dr. Bebeto Alvarado Basophils/100 WBC (Bld) 1.0 % Normal 0.2-2.0 [facility] Comment on above: Performed By: #### A 1C #### [facility] [address] [place] [address] Dr. Bebeto Alvarado EO # 0.2 103/ul Normal 0.0-0.7 [facility] Comment on above: Performed By: #### A 1C #### [facility] [address] [place] [address] Dr. Bebeto Alvarado Eosinophils/100 WBC (Bld) 3.3 % Normal 0.9-7.0 [facility] Comment on above: Performed By: #### A 1C #### [facility] [address] [place] [address] Dr. Bebeto Alvarado Erythrocyte distribution width (RBC) [Ratio] 13.8 % Normal 11.0-15.0 [facility] Comment on above: Performed By: #### A 1C #### [facility] [address] [place] [address] Dr. Bebeto Alvarado Hematocrit (Bld) [Volume fraction] 38.8 % Normal 36.0-48.0 [facility] Comment on above: Performed By: #### A 1C #### [facility] [address] [place] [address] Dr. Bebeto Alvarado Hemoglobin (Bld) [Mass/Vol] 12.5 g/dL Normal 12.0-16.0 [facility] Comment on above: Performed By: #### A 1C #### [facility] [address] [place] [address] Dr. Bebeto Alvarado IG # 0.02 10e3/ul Normal 0.00-0.03 [facility] Comment on above: Performed By: #### A 1C #### [facility] [address] [place] [address] Dr. Bebeto Alvarado IG % 0.3 % Normal 0.0-0.5 [facility] Comment on above: Performed By: #### A 1C #### [facility] [address] [place] [address] Dr. Bebeto Alvarado LYMPH # 1.9 103/ul Normal 1.2-3.8 [facility] Comment on above: Performed By: #### A 1C #### [facility] [address] [place] [address] Dr. Bebeto Alvarado Lymphocytes/100 WBC (Bld) 29.6 % Normal 20.5-60.0 [facility] Comment on above: Performed By: #### A 1C #### [facility] [address] [place] [address] Dr. Bebeto Alvarado MANUAL DIFF REQ NO Normal [facility] Comment on above: Performed By: #### A 1C #### [facility] [address] [place] [address] Dr. Bebeto Alvarado MCH (RBC) [Entitic mass] 28.0 pg Normal 26.7-34.0 [facility] Comment on above: Performed By: #### A 1C #### [facility] [address] [place] [address] Dr. Bebeto Alvarado MCHC (RBC) [Mass/Vol] 32.2 g/dL Normal 29.9-35.2 [facility] Comment on above: Performed By: #### A 1C #### [facility] [address] [place] [address] Dr. Bebeto Alvarado MCV (RBC) [Entitic vol] 86.8 fL Normal 81.0-99.0 [facility] Comment on above: Performed By: #### A 1C #### [facility] [address] [address] [address] Bebeto Alvarado MONO # 0.4 103/ul Normal 0.3-0.8 [facility] Comment on above: Performed By: #### A 1C #### [facility] [address] [place] [address] Dr. Bebeto Alvarado Monocytes/100 WBC (Bld) 5.7 % Normal 1.7-12.0 [facility] Comment on above: Performed By: #### A 1C #### [facility] [address] [place] [address] Dr. Bebeto Alvarado NEUT # 3.8 103/ul Normal 1.4-6.5 [facility] Comment on above: Performed By: #### A 1C #### [facility] [address] [place] [address] Dr. Bebeto Alvarado Neutrophils/100 WBC (Bld) 60.1 % Normal 43.0-75.0 [facility] Comment on above: Performed By: #### A 1C #### [facility] [address] [place] [address] Dr. Bebeto Alvarado Platelet mean volume (Bld) [Entitic vol] 11.0 fL Normal 9.5-13.5 [facility] Comment on above: Performed By: #### A 1C #### [facility] [address] [place] [address] Dr. Bebeto Alvarado PLT 264 103/ul Normal 150-450 [facility] Comment on above: Performed By: #### A 1C #### [facility] [address] [place] [address] Dr. Bebeto Alvarado RBC 4.47 106/ul Normal 4.20-5.40 [facility] Comment on above: Performed By: #### A 1C #### [facility] [address] [place] [address] Dr. Bebeto Alvarado WBC 6.3 103/ul Normal 4.0-11.0 [facility] Comment on above: Performed By: #### A 1C #### [facility] [address] [address] [address] Bebeto Alvarado GLYCOHEMOGLOBIN A1Con 2021 ADA RECOMMENDATION SEE BELOW Normal [facility] Comment on above: Result Comment: ADA RECOMMENDED LIMIT 4.0 - 6.0 ADA THERAPEUTIC TARGET < 7.0 ACTION SUGGESTED > 7.0 Performed By: #### A 1C #### [facility] [address] [address] [address] Bebeto Alvarado Glucose [Mass/Vol] 105 mg/dL Normal [facility] Comment on above: Performed By: #### A 1C #### [facility] [address] [address] [address] Bebeto Alvarado HbA1c (Bld) [Mass fraction] 5.3 % Normal 4.5-6.2 [facility] Comment on above: Performed By: #### A 1C #### [facility] [address] [address] [address] Bebeto Alvarado IRONon 11-21-2021 Iron [Mass/Vol] 59.0 ug/dL Normal 50.0-170.0 [facility] Comment on above: Performed By: #### A 1C #### [facility] [address] [place] [address] Dr. Bebeto Alvarado LIPID PROFILEon 11-21-2021 CHOL-HDL RATIO NORM SEE BELOW Normal [facility] Comment on above: Result Comment: 3.3 - 4.4 LOW RISK 4.4 - 7.1 AVERAGE RISK 7.1 - 11.0 MODERATE RISK >11.0 HIGH RISK Performed By: #### C MP, LIPID #### [facility] [address] [place] [address] Dr. Bebeto Alvarado Cholesterol [Mass/Vol] 139 mg/dL Normal <=200 [facility] Comment on above: Performed By: #### C MP, LIPID #### [facility] [address] [address] [address] Bebeto Alvarado Cholesterol in HDL [Mass/Vol] 35 mg/dL Critically low 40-60 [facility] Comment on above: Performed By: #### C MP, LIPID #### [facility] [address] [address] [address] Bebeto Alvarado Cholesterol in LDL [Mass/Vol] 69.6 mg/dL Normal [facility] Comment on above: Performed By: #### C MP, LIPID #### [facility] [address] [address] [address] Bebeto Alvarado Cholesterol.total/Chol esterol in HDL [Mass ratio] 4.0 {ratio} Normal [facility] Comment on above: Performed By: #### C MP, LIPID #### [facility] [address] [address] [address] Bebeto Alvarado HDL NORMAL > or = 60 mg/dl - LO W CARDIOVASCULAR RISK <40 mg/dl - HIGH CARDIOVASCULAR RISK Normal [facility] Comment on above: Performed By: #### C MP, LIPID #### [facility] [address] [place] [address] Dr. Bebeto Alvarado LDL CALC NORMAL SEE BELOW Normal [facility] Comment on above: Result Comment: <100 mg/dl OPTIMAL 100 - 129 mg/dl NEAR OR ABOVE OPTIMAL 130 - 159 mg/dl BORDERLINE HIGH 160 - 189 mg/dl HIGH >190 mg/dl VERY HIGH Performed By: #### C MP, LIPID #### [facility] [address] [address] [address] Bebeto Alvarado Triglyceride [Mass/Vol] 172 mg/dL Critically high <=150 [facility] Comment on above: Performed By: #### C MP, LIPID #### [facility] [address] [address] [address] Bebeto Alvarado VLDL CALC 34.4 mg/dL Normal [facility] Comment on above: Performed By: #### C MP, LIPID #### [facility] [address] [address] [address] Bebeto Alvarado PROF 14(COMP METB)on 022 Albumin [Mass/Vol] 3.8 g/dL Normal 3.4-5.0 [facility] Comment on above: Performed By: #### C MP, LIPID #### [facility] [address] [place] [address] Dr. Bebeto Alvarado Albumin/Globulin [Mass ratio] 1.1 {ratio} Normal [facility] Comment on above: Performed By: #### C MP, LIPID #### [facility] [address] [place] [address] Dr. Bebeto Alvarado ALP [Catalytic activity/Vol] 96 U/L Normal 46-116 [facility] Comment on above: Performed By: #### C MP, LIPID #### [facility] [address] [place] [address] Dr. Bebeto Alvarado ALT [Catalytic activity/Vol] 25 U/L Normal 14-59 [facility] Comment on above: Performed By: #### C MP, LIPID #### [facility] [address] [place] [address] Dr. Bebeto Alvarado Anion gap [Moles/Vol] 11.8 mmol/L Normal [facility] Comment on above: Performed By: #### C MP, LIPID #### [facility] [address] [place] [address] Dr. Bebeto Alvarado AST [Catalytic activity/Vol] 20 U/L Normal 15-37 [facility] Comment on above: Performed By: #### C MP, LIPID #### [facility] [address] [place] [address] Dr. Bebeto Alvarado Bilirubin [Mass/Vol] 0.4 mg/dL Normal 0.2-1.0 [facility] Comment on above: Performed By: #### C MP, LIPID #### [facility] [address] [place] [address] Dr. Bebeto Alvarado Calcium [Mass/Vol] 8.8 mg/dL Normal 8.5-10.1 [facility] Comment on above: Performed By: #### C MP, LIPID #### [facility] [address] [place] [address] Dr. Bebeto Alvarado Chloride [Moles/Vol] 106 mmol/L Normal 98-107 [facility] Comment on above: Performed By: #### C MP, LIPID #### [facility] [address] [place] [address] Dr. Bebeto Alvarado CO2 [Moles/Vol] 27.0 mmol/L Normal 21.0-32.0 [facility] Comment on above: Performed By: #### C MP, LIPID #### [facility] [address] [address] [address] Bebeto Alvarado Creatinine [Mass/Vol] 0.97 mg/dL Normal 0.55-1.02 [facility] Comment on above: Performed By: #### C MP, LIPID #### [facility] [address] [address] [address] Bebeto Alvarado EGFR-AF HAITIAN >60 Normal >=60 [facility] Comment on above: Performed By: #### C MP, LIPID #### [facility] [address] [place] [address] Dr. Bebeto Alvarado EGFR-NON AF HAITIAN 59 mL/min/1.73m2 Critically low >=60 [facility] Comment on above: Performed By: #### C MP, LIPID #### [facility] [address] [place] [address] Dr. Bebeto Alvarado Globulin (S) [Mass/Vol] 3.4 g/dL Normal [facility] Comment on above: Performed By: #### C MP, LIPID #### [facility] [address] [place] [address] Dr. Bebeto Alvarado Glucose [Mass/Vol] 103 mg/dL Normal 74-106 [facility] Comment on above: Performed By: #### C MP, LIPID #### [facility] [address] [place] [address] Dr. Bebeto Alvarado Potassium [Moles/Vol] 3.8 mmol/L Normal 3.5-5.1 [facility] Comment on above: Performed By: #### C MP, LIPID #### [facility] [address] [address] [address] Bebeto Alvarado Protein [Mass/Vol] 7.2 g/dL Normal 6.4-8.2 [facility] Comment on above: Performed By: #### C MP, LIPID #### [facility] [address] [address] [address] Bebeto Alvarado Sodium [Moles/Vol] 141 mmol/L Normal 136-145 [facility] Comment on above: Performed By: #### C MP, LIPID #### [facility] [address] [place] [address] Dr. Bebeto Alvarado Urea nitrogen [Mass/Vol] 11.0 mg/dL Normal 7.0-18.0 [facility] Comment on above: Performed By: #### C MP, LIPID #### [facility] [address] [place] [address] Dr. Bebeto Alvarado Urea nitrogen/Creatinine [Mass ratio] 11.3 mg/mg Normal [facility] Comment on above: Performed By: #### C MP, LIPID #### [facility] [address] [place] [address] Dr. Bebeto Alvarado URIC ACID SERUMon 11-21-2021 Urate [Mass/Vol] 7.3 mg/dL Critically high 2.6-6.0 [facility] Comment on above: Performed By: #### A 1C #### [facility] [address] [place] [address] Dr. Bebeto Alvarado VITAMIN B12on 11-21-2021 Cobalamin (Vitamin B12) [Mass/Vol] 2123.0 pg/mL Critically high 193.0-986.0 [facility] Comment on above: Performed By: #### A 1C #### [facility] [address] [place] [address] Dr. Bebeto Alvarado Physician Referralon 022 Physician Referral [phone] [id number] Normal [facility] KNEE RIGHT 1 OR 2 VWSon -0 KNEE RIGHT 1 OR 2 VWS [facility] Department of Radiology [address] [place] [id number] ======== Patient Name: MICHELLE BE : 1960 Sex: F Age: Race: White Pt. Location: 84 Patient Status: O Ordered Date: 02/08/2019 10:40:00 AM Completed Date: 02/08/2019 10:38 AM Requesting Provider: AHSAN BINGHAM Attending Provider: AHSAN BINGHAM Report Copy To: Signs & Symptoms: S82.001A Unsp fracture of right patella, init for clos fx I10 History: [place] Comments: , , , Ordering Provider - [...] Electronically signed by:Debra Del Cid. Transcribed by: [email or web address], User Resident: Electronically Signed by: DEBRA DEL CID @ 02/08/2019 11:[address] [facility] Comment on above: Order Comment: , Mabel ws (X-RAY, KNEE): Radiologic Protocol , Weight Bearing?: N , With or Without Brace/Cast/Collar: With , Views (X-RAY, KNEE): Radiologic Protocol , Weight Bearing?: N , With or Without Brace/Cast/Collar: With , , , Ordering Provider - AHSAN BINGHAM PA-C , KNEE RIGHT 1 OR 2 VWSon KNEE RIGHT 1 OR 2 VWS [facility] Department of Radiology [address] [place] [phone] ======== Patient Name: MICHELLE BE : [...] complications. Electronically signed by:Tomasz Stoll. Transcribed by: [email or web address], User Resident: Electronically Signed by: TOMASZ STOLL @ 12/07/2018 11:[address] [facility] Comment on above: Order Comment: , Mabel ws (X-RAY, KNEE): Radiologic Protocol , Weight Bearing?: N , With or Without Brace/Cast/Collar: With , Views (X-RAY, KNEE): Radiologic Protocol , Weight Bearing?: N , With or Without Brace/Cast/Collar: With , , , Ordering Provider - AHSAN BINGHAM PA-C , KNEE RIGHT 1 OR 2 [facility] 0 KNEE RIGHT 1 OR 2 [facility] Department of Radiology [address] [place] [phone] ======== Patient Name: MICHELLE BE : [...] osteoarthritis Electronically signed by:Anup Ellison. Transcribed by: [id number], User Resident: Electronically Signed by: ANUP ELLISON @ 10/06/2018 02:[address] [facility] Comment on above: Order Comment: , Mabel ws (X-RAY, KNEE): Radiologic Protocol , Weight Bearing?: N , With or Without Brace/Cast/Collar: With , Views (X-RAY, KNEE): Radiologic Protocol , Weight Bearing?: N , With or Without Brace/Cast/Collar: With , , , Ordering Provider - AHSAN BINGHAM PA-C , KNEE RIGHT 1 OR 2 Son 08-05 KNEE RIGHT 1 OR 2 VWS [facility] Department of Radiology [address] [place] [phone] ======== Patient Name: MICHELLE BE : 1960 Sex: F Age: Race: White Pt. Location: Patient Status: Ordered Date: 08/26/2018 2:30:00 PM Completed Date: 08/26/2018 02:54 PM Requesting Provider: AHSAN BINGHAM Attending Provider: Report Copy To: Signs & Symptoms: S82.001A Unsp fracture of right patella, init for clos fx I10 History: [place] Comments: , , , Ordering Provider - [...] effusion Electronically signed by:Anup Ellison. Transcribed by: [email or web address], User Resident: Electronically Signed by: ANUP ELLISON @ 08/26/2018 04:[address] [facility] Comment on above: Order Comment: , Vie ws (X-RAY, KNEE): Radiologic Protocol , Weight Bearing?: N , With or Without Brace/Cast/Collar: With , Views (X-RAY, KNEE): Radiologic Protocol , Weight Bearing?: N , With or Without Brace/Cast/Collar: With , , , Ordering Provider - AHSAN BINGHAM PA-C , KNEE RIGHT 1 OR 2 [facility] 07-06 KNEE RIGHT 1 OR 2 S [facility] Department of Radiology [address] [place] [phone] ======== Patient Name: MICHELLE BE : [...] , Exam: KNEE RIGHT 1 OR 2 [facility] ======== KNEE RIGHT 1 OR 2 [facility] 07/29/2018 2:12 PM EDT SIGNS AND [...] compartment Electronically signed by:Anup Ellison. Transcribed by: [email or web address], User Resident: Electronically Signed by: ANUP ELLISON @ 07/29/2018 03:[address] [facility] Comment on above: Order Comment: , Mabel ws (X-RAY, KNEE): Radiologic Protocol , Weight Bearing?: N , With or Without Brace/Cast/Collar: With , Views (X-RAY, KNEE): Radiologic Protocol , Weight Bearing?: N , With or Without Brace/Cast/Collar: With , , , Ordering Provider - AHSAN BINGHAM PA-C , KNEE RIGHT 3 [facility] 9 KNEE RIGHT [address] [facility] Department of Radiology [address] [place] [phone] ======== Patient Name: MICHELLE BE : 1960 Sex: F Age: Race: White Pt. Location: 84 Patient Status: Ordered Date: 07/15/2018 8:45:00 AM Completed Date: 07/15/2018 08:47 AM Requesting Provider: AHSAN BINGHAM Attending Provider: Report Copy To: Signs & Symptoms: S82.001A Unsp fracture of right patella, init for clos fx I10 History: [place] Comments: , , , Ordering Provider - AHSAN BINGHAM PA-C , Exam: KNEE RIGHT 3 [facility] ======== KNEE RIGHT 3 S 07/15/2018 8:47 AM EDT SIGNS AND SYMPTOMS: [...] knee Electronically signed by:Anup Ellison. Transcribed by: [email or web address], User Resident: Electronically Signed by: ANUP ELLISON @ 07/15/2018 03:[address] [facility] Comment on above: Order Comment: , Vie ws (X-RAY, KNEE): Radiologic Protocol , Weight Bearing?: N , With or Without Brace/Cast/Collar: With , Views (X-RAY, KNEE): Radiologic Protocol , Weight Bearing?: N , With or Without Brace/Cast/Collar: With , , , Ordering Provider - AHSAN BINGHAM PA-C , Operative Reporton 9 Operative Report MR#: [id number] [facility] Pt. Name: Michelle Be Room #: [...] Duarte MD Date Trans: 07/03/2018 04:28 A/terry [id number] Normal [facility] *ANAEROBIC CULTUREon 019 *ANAEROBIC CULTURE Clinical Report: (D) Specimen/Source: SWAB/RT KNEE Collected: 07/02/2018 13:53 Status: Final Last Updated: 07/07/2018 08:02 CULT RES (Final) No Anaerobes Isolated 5 Days Normal [facility] Comment on above: Performed By: #### 3 0312 #### [address] *WOUND CULTUREon 07-02-2018 *WOUND CULTURE Clinical Report: (D) Specimen/Source: WOUND/INTRAOP SPEC Collected: 07/02/2018 13:53 Status: Final Last Updated: 07/07/2018 10:13 (1) #1 RT KNEE GRAM (Final) Rare Polys No Bacteria Seen CULT RES (Final) No Growth Day 5 Normal [facility] Comment on above: Order Comment: #1 RT KNEE Performed By: #### 3 0343 #### [address] KNEE RIGHT 1 OR 2 [facility] 06-05 KNEE RIGHT 1 OR 2 [facility] Department of Radiology [address] [place] [phone] ======== Patient Name: MICHELLE BE : [...] Electronically signed by:Debra Del Cid. Transcribed by: [email or web address], User Resident: Electronically Signed by: DEBRA DEL CID @ 07/02/2018 02:[address] [facility] Comment on above: Order Comment: ORIF VS PERCUTANEOUS FIXATION RIGHT PATELLA POC GLUCOSE LABon 07-02-2018 Glucose [Mass/Vol] 108 mg/dL High 70-[address] [facility] Comment on above: Performed By: #### 8 5499 #### [facility] [address] [place] [address], [facility] APTTon 06-30-2018 aPTT Coag (Bld) [Time] 30.6 s Normal 25.0-35.[address] [facility] Comment on above: Result Comment: ALL [...] THIS PURPOSE. Performed By: #### 5 6101, 02650 #### [facility] [address] [place] [address], [facility] BASIC METABOLIC PANELon 06-05 Calcium [Mass/Vol] 9.7 mg/dL Normal 8.6-10.[address] [facility] Comment on above: Performed By: #### 0 0071 #### [facility] [address] [place] [address], [facility] Chloride [Moles/Vol] 102 mmol/L Normal 98-[address] [facility] Comment on above: Performed By: #### 0 0071 #### [facility] [address] [place] [address], [facility] CO2 [Moles/Vol] 28 mmol/L Normal 21-[address] [facility] Comment on above: Performed By: #### 0 0071 #### [facility] [address] [place] [address], [facility] Creatinine [Mass/Vol] 1.20 mg/dL Normal 0.60-1.[address] [facility] Comment on above: Performed By: #### 0 0071 #### [facility] [address] [place] [address], [place] GFR/1.73 sq M predicted among blacks MDRD (S/P/Bld) [Vol rate/Area] 56 ml/min/1.73sq m Abnormal >[address] [facility] Comment on above: Performed By: #### 0 0071 #### [facility] [address] [place] [address], [place] GFR/1.73 sq M predicted among non-blacks MDRD (S/P/Bld) [Vol rate/Area] 47 ml/min/1.73sq m Abnormal >[address] [facility] Comment on above: Performed By: #### 0 0071 #### [facility] [address] [place] [address], [place] Glucose [Mass/Vol] 97 mg/dL Normal 70-[address] [facility] Comment on above: Performed By: #### 0 0071 #### [facility] [address] Potassium [Moles/Vol] 4.1 mmol/L Normal 3.5-5.[address] [facility] Comment on above: Performed By: #### 0 0071 #### [facility] [address] [facility] [address], [facility] Sodium [Moles/Vol] 137 mmol/L Normal 136-[address] [facility] Comment on above: Performed By: #### 0 0071 #### [facility] [address] [facility]. [address] Urea nitrogen [Mass/Vol] 19 mg/dL Normal 7-[address] [facility] Comment on above: Performed By: #### 0 0071 #### [facility] [address] [place] [address], [facility] CBC W/DIFFon 06-30-2018 ABS BASOPHILS 0.1 10*3/uL Normal 0.0-0.[address] [facility] Comment on above: Performed By: #### 5 0103 #### [facility] [address] [facility] [place] [address], [facility] ABS IMM GRANS 0.0 10*3/uL Normal 0.0-0.[address] [facility] Comment on above: Performed By: #### 5 3 #### [facility] [address] [facility]. [address] ABS NEUTROPHILS 6.4 10*3/uL Normal 1.6-7.[address] [facility] Comment on above: Performed By: #### 5 102 #### [facility] [address] [facility] [place] [address], [facility] Basophils/100 WBC (Bld) 0.7 % Normal 0.0-1.[address] [facility] Comment on above: Performed By: #### 5 102 #### [facility] [address] [facility] [place] [address], [facility] Eosinophils (Bld) [#/Vol] 0.2 10*3/uL Normal 0.0-0.[address] [facility] Comment on above: Performed By: #### 5 0103 #### [facility] [address] [facility] [place] [address], [facility] Eosinophils/100 WBC (Bld) 1.5 % Normal 0.0-6.[address] [facility] Comment on above: Performed By: #### 5 0103 #### [facility] [address] [facility]. [address] Erythrocyte distribution width (RBC) [Ratio] 14.4 % Normal 11.5-15.[address] [facility] Comment on above: Performed By: #### 5 0103 #### [facility] [address] [facility] [place] [address], [facility] Hematocrit (Bld) [Volume fraction] 40.6 % Normal 36.0-45.[address] [facility] Comment on above: Performed By: #### 5 0103 #### [facility] [address] [facility] [place] [address], [facility] Hemoglobin (Bld) [Mass/Vol] 13.3 g/dL Normal 12.0-15.[address] [facility] Comment on above: Performed By: #### 5 0103 #### [facility] [address] [place] [address], [facility] IMMATURE GRANS 0.4 % Normal 0.0-1.[address] [facility] Comment on above: Performed By: #### 5 0103 #### [facility] [address] [facility] [place] [address], [facility] Lymphocytes (Bld) [#/Vol] 2.6 10*3/uL Normal 1.2-4.[address] [facility] Comment on above: Performed By: #### 5 3 #### [facility] [address] [place] [address], [facility] Lymphocytes/100 WBC (Bld) 26.5 % Normal 20.0-45.[address] [facility] Comment on above: Performed By: #### 5 3 #### [facility] [address] [facility] [place] [address], [facility] MCH (RBC) [Entitic mass] 27.4 pg Normal 27.0-33.[address] [facility] Comment on above: Performed By: #### 5 3 #### [facility] [address] [facility] [address], [facility] MCHC (RBC) [Mass/Vol] 32.8 g/dL Normal 32.0-35.[address] [facility] Comment on above: Performed By: #### 5 3 #### [facility] [address] [facility]. [address] MCV (RBC) [Entitic vol] 83.5 fL Normal 82.0-98.[address] [facility] Comment on above: Performed By: #### 5 3 #### [facility] [address] [facility] [place] [address], [facility] Monocytes (Bld) [#/Vol] 0.5 10*3/uL Normal 0.1-1.[address] [facility] Comment on above: Performed By: #### 5 3 #### [facility] [address] [facility] MONOS 5.0 % Normal 5.0-12.[address] [facility] Comment on above: Performed By: #### 5 3 #### [facility] [address] [facility] [address] Neutrophils/100 WBC (Bld) 65.9 % Normal 40.0-72.[address] [facility] Comment on above: Performed By: #### 5 3 #### [facility] [address] [place] [address], [facility] Nucleated RBC/100 WBC (Bld) [Ratio] 0 % Normal 0-[address] [facility] Comment on above: Performed By: #### 5 0103 #### [facility] [address] [facility] [place] [address], [facility] PLAT CNT 290 10*3/uL Normal 150-[address] [facility] Comment on above: Performed By: #### 5 0103 #### [facility] [address] [place] [address], [facility] RBC (Bld) [#/Vol] 4.86 10*6/uL Normal 3.80-5.[address] [facility] Comment on above: Performed By: #### 5 0103 #### [facility] [address] [place] [address], [facility] WBC (Bld) [#/Vol] 9.68 10*3/uL Normal 4.00-10.[address] [facility] Comment on above: Performed By: #### 5 0103 #### [facility] [address] KNEE RIGHT 1 OR 2 VWSon 06-05 KNEE RIGHT 1 OR 2 VWS [facility] Department of Radiology [address] [place] [phone] ======== Patient Name: MICHELLE BE : 1960 Sex: F Age: Race: White Pt. 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 Transcribed by: [id number], User Resident: Electronically Signed by: DEBRA DEL CID @ 06/30/2018 11:52 AM [facility] Comment on above: Order Comment: , Mabel ws (X-RAY, KNEE): Radiologic Protocol , Weight Bearing?: N , With or Without Brace/Cast/Collar: With , Views (X-RAY, KNEE): Radiologic Protocol , Weight Bearing?: N , With or Without Brace/Cast/Collar: With , , , Ordering Provider - AHSAN BINGHAM PA-C , PROTHROMBIN TIMEon 9 INR Coag (PPP) [Relative time] 0.98 {INR} Normal 0.91-1.16 [facility] Comment on above: Result Comment: [...] CHEST 1995;108:231S-246S. Performed By: #### 5 6101, [id number] #### [address] PT Coag (PPP) [Time] 13.0 s Normal 12.3-14.[address] [facility] Comment on above: Result Comment: ALL RESULTS MUST BE INTERPRETED WITH RESPECT TO BLOOD DRAWING ARTIFACT OR DILUTION ERROR OF ANTICOAGULANT AT THE TIME OF SAMPLING. Performed By: #### 5 6101, [id number] #### [address] [address] KNEE RIGHT [address] [facility] Department of Radiology [address] [place] [id number] ======== Patient Name: MICHELLE BE : 1960 Sex: F Age: Race: White Pt. Location: 84 Patient Status: O Ordered Date: 06/15/2018 1:35:00 PM Completed Date: 06/15/2018 01:34 PM Requesting Provider: AMPARO ZHANG Attending Provider: AMPARO ZHANG Report Copy To: ADELAIDA CARRION Signs & Symptoms: M17.11 Unilateral primary osteoarthritis, right knee I10 History: [place] Comments: , Weight Bearing?: Y , Weight Bearing?: Y , , , Ordering Provider - AMPARO ZHANG PA-C , Exam: KNEE RIGHT 3 [facility] ======== KNEE RIGHT 3 S 06/15/2018 [...] effusion Electronically signed by:Anup Ellison. Transcribed by: [email or web address], User Resident: Electronically Signed by: ANUP ELLISON @ 06/15/2018 03:[address] [facility] Comment on above: Order Comment: , Isaiah ght Bearing?: Y , Weight Bearing?: Y , , , Ordering Provider - AMPARO ZHANG PA-C , Vital Signs Date Time Vital Sign Value Performing Clinician Facility 05-18-2023 16:30-0500 Body height 162.6 cm Adelaidamyrna Carrion MOUNTING INSPECTOR Work Phone: [facility] 05-18-2023 16:30-0500 Body mass index (BMI) [Ratio] 47.89 kg/m2 Adelaida Sheyla MOUNTING INSPECTOR Work Phone: [facility] 05-18-2023 16:30-0500 Body temperature 97.3 [degF] Adelaidamyrna Carrion MOUNTING INSPECTOR Work Phone: [facility] 05-18-2023 16:30-0500 Body weight 126.55 kg Adelaida Sheyla MOUNTING INSPECTOR Work Phone: [facility] 05-18-2023 16:30-0500 Diastolic blood pressure 80 mm[Hg] Adelaida Sheyla MOUNTING INSPECTOR Work Phone: [facility] 05-18-2023 16:30-0500 Heart rate 76 /min Adelaida Carrion MOUNTING INSPECTOR Work Phone: [facility] 05-18-2023 16:30-0500 Respiratory rate 19 /min Adelaida Carrion MOUNTING INSPECTOR Work Phone: [facility] 05-18-2023 16:30-0500 SaO2% (BldA) [Mass fraction] 97 % Adelaida Carrion MOUNTING INSPECTOR Work Phone: [facility] 05-18-2023 16:30-0500 Systolic blood pressure 134 mm[Hg] Adelaida Aichholz MOUNTING INSPECTOR Work Phone: [facility] 03-23-2023 12:10-0500 Diastolic blood pressure 98 mm[Hg] Adelaida Aichholz Work Phone: [facility] 03-23-2023 12:10-0500 Heart rate 76 /min Adelaida Aichholz Work Phone: [facility] 03-23-2023 12:10-0500 Respiratory rate 18 /min Adelaida Aichholz Work Phone: [facility] 03-23-2023 12:10-0500 SaO2% (BldA) [Mass fraction] 99 % Adelaida Aichholz Work Phone: [facility] 03-23-2023 12:10-0500 Systolic blood pressure 162 mm[Hg] Adelaida Aichholz Work Phone: [facility] 03-23-2023 10:53-0500 Body height 162.56 cm Adelaida Aichholz Work Phone: [facility] 03-23-2023 10:53-0500 Body weight 125.64 kg Adelaida Aichholz Work Phone: [facility] 12-19-2022 14:55-0400 Body height 162.56 cm Rosemary Kirkland Other [facility] Other 12-19-2022 14:55-0400 Body mass index (BMI) [Ratio] 47.85 kg/m2 Rosemary Kirkland Other [facility] Other 12-19-2022 14:55-0400 Body temperature 97.8 [degF] Rosemary Kirkland Other [facility] Other 12-19-2022 14:55-0400 Body weight 126.46 kg Rosemary Kirkland Other [facility] Other 12-19-2022 14:55-0400 Respiratory rate 20 /min Rosemary Kirkland Other [facility] Other 12-19-2022 14:55-0400 SaO2% (BldA) [Mass fraction] 95 % Rosemary Kirkland Other [facility] [employer] Other 11-20-2022 13:12-0400 Body temperature 97.7 [degF] Adelaida Aichholz Work Phone: [facility] 11-20-2022 13:12-0400 SaO2% (BldA) [Mass fraction] 96 % Adelaida Aichholz Work Phone: [facility] 11-20-2022 07:44-0400 Diastolic blood pressure 90 mm[Hg] Adelaida Aichholz Work Phone: [facility] 11-20-2022 07:44-0400 Heart rate 103 /min Adelaida Aichholz Work Phone: [facility] 11-20-2022 07:44-0400 Systolic blood pressure 152 mm[Hg] Adelaida Aichholz Work Phone: [facility] 11-19-2022 20:00-0400 Respiratory rate 18 /min Adelaida Aichholz Work Phone: [facility] 11-18-2022 15:18-0400 Body height 162.56 cm Adelaida Aichholz Work Phone: [facility] 11-17-2022 09:00-0400 Body weight 122.92 kg Adelaida Aichholz Work Phone: [facility] Encounters Encounter Date Encounter Type Care Provider Facility Start: 07-23-2023 End: 07-23-2023 ambulatory ADELAIDA JOSE ALBERTOHHOLZ Not Available Start: 07-07-2023 End: 07-07-2023 ambulatory ADELAIDA EDWINHOLZ Not Available Start: 05-22-2023 End: 05-22-2023 ambulatory ASHLEIGH HINES Not Available Start: 05-21-2023 Refill Adelaida Carrion MOUNTING INSPECTOR Work Phone: [facility] Comment on above: Acute cystitis with hematuria (Primary Dx) Start: 05-18-2023 End: 05-18-2023 ambulatory ADELAIDA AICHHOLZ Not Available Start: 05-18-2023 End: 05-18-2023 Office outpatient visit 25 minutes Adelaida Carrion MOUNTING INSPECTOR Work Phone: [facility] Comment on above: Encounter for annual wellness visit (AWV) in Medicare patient (Primary Dx); OSMANY (obstructive sleep apnea); Chronic pain disorder; Gastroesophageal reflux disease, unspecified whether esophagitis present; Overactive bladder; Lower extremity edema; Pre-diabetes; Morbid obesity (CMS/HCC); Yeast infection of the skin; Tobacco dependence; Mood disorder (CMS/HCC); Primary hypertension (CMS/[facility]); Left hip pain; Open wound of anterior abdominal wall, initial encounter Start: 05-18-2023 Bamboo flowsheet Adelaida Carrion MOUNTING INSPECTOR Work Phone: [facility] Start: 05-18-2023 Bamboo flowsheet Adelaida Carrion MOUNTING INSPECTOR Work Phone: [facility] Start: 05-18-2023 End: 05-18-2023 Patient encounter procedure Adelaida Carrion MOUNTING INSPECTOR Work Phone: [facility] Start: 04-30-2023 ambulatory Eduardo Acevedo acility:[facility] Start: 03-25-2023 End: 03-25-2023 ambulatory ADELAIDA AICHHOLZ Not Available Start: 03-23-2023 End: 03-23-2023 ambulatory Jace Graham Facility:[facility] Start: 03-23-2023 End: 03-23-2023 Admission to same day surgery center Adelaida Carrion Work Phone: [facility] Work Phone: Start: 03-23-2023 End: 03-23-2023 ambulatory Adelaida Carrion Work Phone: [facility] Work Phone: Start: 03-11-2023 End: 03-11-2023 ambulatory KALLI INTERIANO Not Available Start: 02-20-2023 End: 02-20-2023 ambulatory ASHLEIGH Mcnair HINES Not Available Start: 02-12-2023 End: 02-12-2023 ambulatory Jace Graham Other [facility] Other Start: 02-12-2023 Telephone encounter Jace Haney Microbiology Lab Manager Start: 12-19-2022 End: 12-19-2022 ambulatory Rosemary Kirkland Other [facility] Other Start: 12-19-2022 Office outpatient ne w 10 minutes Rosemary Kirkland [facility] [place] Start: 11-17-2022 End: 11-20-2022 Evaluation and management of inpatient Eduardobalta Monk Facility:[facility] Start: 11-17-2022 End: 11-20-2022 Evaluation and management of inpatient Adelaida Carrion Work Phone: [facility] Work Phone: Start: 09-04-2022 ambulatory ARIAN Banegas Facili ty:[facility]1 Start: 08-26-2022 ambulatory NARENDRANATH LAKSHMIPATHY . Facility:[facility] Start: 08-08-2022 End: 08-09-2022 ambulatory GAS SHOVEL OPERATOR ADELAIDA JOSE ALBERTOMarquesGERONIMOZ Facility:[facility]1 Start: 07-25-2022 End: 07-26-2022 ambulatory GAS SHOVEL OPERATOR ADELAIDA JOSE ALBERTOMarquesRHONDA Facility:[facility]1 Start: 07-15-2022 End: 07-15-2022 ambulatory NARENDRANATH LAKSHMIPATHY . Facility:[facility] Start: 07-11-2022 ambulatory HERBERTH CRAMER . Facility:[facility] Start: 06-26-2022 End: 06-27-2022 ambulatory [...] Start: 01-01-2022 End: 01-02-2022 [facility] Start: 12-16-2021 End: 12-16-2021 ambulatory LIVIER SOUSAGERONIMONena Facility:[facility] Start: 11-21-2021 End: 11-22-[address] DOCTOR BERGERON Facility:[facility] Start: 10-03-2021 End: 10-04-[address] FINA ZIMMER . Facility:[facility] Start: 09-19-[address] FINA ZIMMER . Faci lity:[facility]1 Start: 09-12-2021 End: 09-12-2021 ambulatory LIVIER SOUSAGERONIMONena Facility:[facility]1 Start: 08-20-2021 End: 08-20-[address] FINA ZIMMER . Facility:[facility] Start: 07-02-2018 End: 07-03-2018 Patient encounter procedure SUKI ESCALANTE Facility:[facility] Procedures Date Procedure Procedure Detail Performing Clinician Start: 03-23-2023 Screening colonoscopy L oneal Carrion Work Phone: Start: 03-23-2023 Colonoscopy Adelaida Jayden ramos MOUNTING INSPECTOR Work Phone: Start: 09-15-2022 Mammography Adelaida Jayden ramos MOUNTING INSPECTOR Work Phone: Start: 08-28-2022 Microscopic observat ion [Identifier] in Cervix by Cyto stain Adelaida Carrion MOUNTING INSPECTOR Work Phone: Start: 07-02-2018 ANESTH KNEE AREA SURGERY CHAPARRITA HENDRICKS Start: 07-02-2018 REMOVAL OF SUPPORT IMPLANT SUKI EBRAHEIM Start: 07-02-2018 TREAT KNEECAP FRACTURE SUKI EBRAHEIM Plan of Treatment Date Care Activity Detail Author Start: 03-23-2033 Screening for malignant neoplasm of colon [facility] Start: 08-28-2025 Screening for malignant neoplasm of cervix [facility] Start: 05-18-2024 Medicare Annual Wellness (AWV) Medicare Annual Wellness (AWV) [facility] Start: 09-16-2023 Screening for malignant neoplasm of breast Mammogram [facility] Start: 08-17-2023 End: 08-17-2023 Patient encounter procedure 08/17/2023 9:20 AM EDT Office Visit [facility] [address] [place] [address] Adelaida Carrion, BRIANA [address] [place] [address] [facility] Start: 05-22-2023 End: 05-22-2023 Patient encounter procedure 05/22/2023 8:45 AM EST Office Visit [facility] [address] [facility] [address] [place] [id number] Ashleigh Hines PA [address] [place] [address] [place] [address] [facility] Start: 05-18-2023 End: 05-18-2023 Patient encounter procedure 05/18/2023 4:30 PM EST Office Visit [facility] [address] [place] [address] Adelaida Carrion, BRIANA [address] [place] [address] Arrived [facility] Comment on above: Arrived Start: 05-18-2023 End: 05-18-2024 XR Hip - left 3 Views XR hip left 2 or 3 views Imaging Routine Left hip pain Expected: 05/18/2023 (Approximate), Expires: 05/18/2024 [facility] Work Phone: Comment on above: Expected: 05/18/2023 (Approximate), Expires: 05/18/2024 Start: 03-23-2023 [facility] Start: 11-20-2022 [facility] Start: 11-18-2022 Referral to clinical meat stock clerk [facility] Start: 11-17-2022 Hospital admission [facility] Start: 11-17-2022 [facility] Start: 12-06-1991 Screening for malignant neoplasm of cervix HPV/Cotest [facility] Start: 1960 Medicare Annual Wellness (AWV) Medicare Annual Wellness (AWV) [facility] Start: 1960 Screening for malignant neoplasm of colon [facility] Patient Education [facility] Work Phone: Patient referral [facility] Work Phone: [facility] Immunizations Immunization Date Immunization Notes Care Provider Fa cility 02-13-2023 influenza, injectabl e, quadrivalent, preservative free Adelaida Sheyla MOUNTING INSPECTOR Work Phone: [facility] 02-13-2023 SARS-COV-2 (COVID-19 ) vaccine, mRNA, spike protein, LNP, PF, 50 mcg/0.5 mL Adelaida Sheyla MOUNTING INSPECTOR Work Phone: [facility] 02-19-2022 diphtheria, tetanus toxoids and pertussis vaccine Adelaida Carrion MOUNTING INSPECTOR Work Phone: [facility] 03-02-2021 Moderna SARS-CoV-2 Vaccination Adelaida Carrion MOUNTING INSPECTOR Work Phone: [facility] 08-24-2020 Moderna SARS-CoV-2 Vaccination Adelaidamyrna Sousaholz MOUNTING INSPECTOR Work Phone: [facility] 07-27-2020 Moderna SARS-CoV-2 Vaccination Adelaida Kelsiez MOUNTING INSPECTOR Work Phone: [facility] 05-28-2018 influenza, injectabl e, quadrivalent, preservative free Adelaida Carrion Work Phone: [facility] Payers Date Payer Category Payer Medicare [id number] 2022 Private Health Insurance [id number] 2022 Self-pay [id number] 2022 Medicare [employer] MEDICARE REPLACEMENT [id number] 2022-Present [address] [address] [place] [address] [id number] 2008 Unknown [id number] 1960 Unknown [id number] 2.16.840.1.446538.3.579.2 .647 1960 Unknown [id number] 2.16.840.1.789287.3.579.2 .593 1960 Unknown [id number] 2.16.840.1.562045.3.579.2 .593 1960 Unknown [id number] 2.16.840.1.128225.3.579.2 .593 1961 Unknown [id number] 2.16.840.1.220236.3.579.2 .593 1960 Unknown [id number] 2.16.840.1.241817.3.579.2 .593 1960 Unknown [id number] 2.16.840.1.786030.3.579.2 .593 1961 Unknown [id number] 2.16.840.1.785089.3.579.2 .593 1960 Unknown [id number] 2.16.840.1.948611.3.579.2 .593 1960 Unknown [id number] 2.16.840.1.887456.3.579.2 .593 1961 Unknown [id number] 2.16.840.1.134665.3.579.2 .593 1961 Unknown [id number] 2.16.840.1.334893.3.579.2 .593 1961 Unknown [id number] 2.16.840.1.987825.3.579.2 .593 1960 Unknown [id number] 2.16.840.1.403131.3.579.2 .593 1961 Unknown [id number] 2.16.840.1.101083.3.579.2 .593 1960 Unknown [id number] 2.16.840.1.948067.3.579.2 .593 1961 Unknown [id number] 2.16.840.1.616333.3.579.2 .593 1961 Unknown [id number] 2.16.840.1.784273.3.579.2 .593 1961 Unknown [id number] 2.16.840.1.363112.3.579.2 .593 1961 Unknown [id number] 2.16.840.1.266303.3.579.2 .593 1961 Unknown [id number] 2.16.840.1.596641.3.579.2 .593 1961 Unknown [id number] 2.16.840.1.832351.3.579.2 .593 1961 Unknown [id number] 2.16.840.1.637286.3.579.2 .593 1961 Unknown [id number] 2.16.840.1.355247.3.579.2 .593 1961 Unknown [id number] 2.16.840.1.148495.3.579.2 .593 1961 Unknown [id number] 2.16.840.1.641384.3.579.2 .1259 1961 Unknown [id number] 2.16.840.1.096625.3.579.2 .1259 1961 Unknown [id number] 2.16.840.1.530180.3.579.2 .1259 1961 Unknown [id number] 2.16.840.1.969965.3.579.2 .1259 1960 Unknown [id number] 2.16.840.1.754253.3.579.2 .1259 1960 Unknown [id number] 2.16.840.1.689343.3.579.2 .1259 1960 Unknown [id number] 2.16.840.1.479372.3.579.2 .1259 1958 Medicare [id number] 1959 Unknown [id number] Unknown [id number] 2.16.840.1.410792.3.579.2 .531 Unknown [id number] 2.16.840.1.652271.3.579.2 .531 Unknown [id number] 2.16.840.1.067678.3.579.2 .531 Social History Date Type Detail Facility Start: 11-18-2022 End: 02-09-2023 Tobacco smoking status NHIS Ex-smoker (finding) [facility] Start: 1960 Sex Assigned At Female [facility] Start: 03-25-2023 End: 05-18-2023 Sex Assigned At [facility] End: 04-06-2016 History of tobacco use Current smoker [facility] End: 04-06-2016 History of tobacco use Cigarette Smoker [facility] Start: 02-09-2023 End: 05-18-2023 Cigarettes smoked current (pack per day) - Reported 1 [facility] Start: 02-09-2023 Tobacco use and exposure Smokeless tobacco non-user [facility] Start: 05-18-2023 Alcohol intake Lifetime non-drinker (finding) [facility] Start: 11-13-2022 Alcohol Comment caffeine intake: 1-2 cups per day. [facility] Start: 10-01-2022 Gender identity Identifies as female gender (finding) [facility] Start: 10-01-2022 Sexual orientation Heterosexual (finding) [...] Functional status Patient at Baseline [facility] Work Phone: Mental Status Date Assessment Result Facility 11-20-2022 Cognitive function Cognitive Sta tus Patient is Progressing Toward Baseline [facility] Work Phone: Clinical Notes 10-03-2021 to 05-18-2023 Adelaida Carrion NP - 05/18/2023 5:49 PM ESTAdelaida Carrion, BRIANA - 05/18/2023 5:47 PM ESTCatalinasa Sheyla, BRIANA - 05/18/2023 5:20 PM ESTCatalinasa Sheyla, BRIANA - 05/18/2023 5:17 PM EST Note [...] (BARIATRIC MULTIVITAMINS/IRON PO) Bariatric Multivitamins/Iron nystatin (Mycostatin) [id number] UNIT/GM powder 1 application , Topical, 2 [...] Anxiety 05/18/2023 Bipolar disorder with severe depression ([facility]) 05/18/2023 Brain vascular malformation Chronic pain disorder Colon polyps Constipation Degenerative cervical disc Degenerative lumbar disc Depression ([facility]) 05/18/2023 Diastolic dysfunction Dizziness 05/18/2023 Dysphagia Fibromyalgia Gastrocnemius equinus GERD (gastroesophageal reflux disease) Heart murmur Hematoma of right breast Hemiparesis, right ([facility]) Hemorrhoid int/external hemorrhoids Hiatal hernia Iron deficiency Left foot pain 03/25/2023 Lower extremity edema Mood disorder ([facility]) mixed mood disorder OSMANY (obstructive sleep apnea) Osteoporosis ([facility]) Overactive bladder Pre-diabetes Primary hypertension ([facility]) 03/25/2023 PTSD (post-traumatic stress disorder) ([facility]) Restless leg Right knee pain Right sided weakness S/P bariatric surgery Shingles Slurred speech Stroke ([facility]) 2018 Tenosynovitis, de Quervain Thoracic back pain, [...] yearly and prn documented in this encounter [facility] 03-23-2023 Procedure note [facility] 12-19-2022 Evaluation note Encounter Date Diagnosis Assessment Notes Dec, Skin candidiasis (ICD-10 - B37.2) Drink plenty fluids, get plenty of rest. Continue home medications as prescribed. Take the Diflucan as prescribed until gone. Follow-up with your family physician if no improvement in 2 to 3 days [facility] 08-17-2023 Discharge summary Author Eduardo bautista [facility] November 20, 2022 6:38am Note Date/Time November 20, 2022 6: 38am [facility] [address] [place] [address] Discharge Summary Signed Patient: Michelle Be MR#: [id number] : 1960 Acct:[id number] Age/Sex: 61 / F Adm Date: 3 Loc: Room: [address] [place] [address]: Gaudencio Monk MD Copies to: MD Adelaida Álvarez, MOUNTING INSPECTOR-C~ Providers Date of Discharge: 11/20/22 Discharging Provider: [...] at that time.? She reports moving to [place] from [place] in 2011 and was then diagnosed with bipolar disorder at [facility] in [place], where she still follows with a therapist.? Shereports that she has been with 7 therapists in the last 9 years and is currentlycompleting EMDR with her current therapist. 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 (insert date/time [...] signed by Eduardo Monk MD> 11/20/[address] [facility] Work Phone: 1(935) 359-223808-16-2023 Progress note Author Eduardo bautista [facility] November 19, 2022 6:25am Note Date/Time November 19, 2022 6: 25am [facility] [address] [place] [address] Psychiatry Progress Note Signed Patient: Michelle Be MR#: [id number] : 1960 Acct:[id number] Age/Sex: 61 / F Adm Date: 3 Loc: Room: [address] [place] [address] Type : ADM IN Attending Dr: Gaudencio [...] time Documented By: Eduardo Monk MD 3 [id number] Signed By: <Electronically signed by Eduardo Monk MD> 11/19/22624 [facility] Work Phone: 1(553) 801-282508-15-2023 Progress note Author Eduardo bautista [facility] November 18, 2022 11:01am Note Date/Time November 18, 2022 10 :11am [facility] [address] [place] [address] Psychiatry Progress Note Signed Patient: Michelle Be MR#: [id number] : 1960 Acct:[id number] Age/Sex: 61 / F Adm Date: 3 Loc: 1S Room: 8U7151-7 Type : ADM IN Attending Dr: Gaudencio [...] by requesting a schedule 2 referring to Winnie for pain management specifically every 4-6 hours [...] time Documented By: Eduardo Monk MD 3 [id number] Signed By: <Electronically signed by Eduardo Monk MD> 11/18/22 1101 <Electronically signed by MD DA Rangel> 11/18/[address] [facility] Work Phone: 1(908) 836-715308-14-2023 History and physical note Author Eduardo bautista [facility] November 17, 2022 12:48pm Note Date/Time November 17, 2022 12 :48pm [facility] [address] [place] [address] Psychiatry H&P Signed Patient: Michelle Be MR#: [id number] : 1960 Acct:[id number] Age/Sex: 61 / F Adm Date: 3 Loc: 1S Room: 3G4411-2 Type: ADM IN Attending Dr: Gaudencio Monk [...] at that time. She reports moving to [place] from [place] in 2011 and was then diagnosed with bipolar disorder at [facility] in [place], where she still follows with a therapist. Shereports that she has been with 7 therapists in the last 9 years and is currentlycompleting EMDR with her current therapist. Past hospitalizations: Her most recent hospitalization was 5 years ago [facility] in [place] for the same feeling she is experiencing [...] her , son and his girlfriend, and amanuelrandson. Reports a situation in which they are attempting to seek custody of the grandson from the mother of the child. She reports not feeling safe at homewith herself but feels safe when her family is home. 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 Relationships: Reports having people who [...] equal bilaterally. CN XII: Tongue protrusion midline [facility] Medical History (Updated 11/17/22 @ 10:42 [...] signed by Eduardo Monk MD> 11/17/[address] [facility] Work Phone: 1(226) 607-252703-23-2023 NoteCONSULTATION CONSULTATION DATE: 06/26/2022 To: Nurse Carrion [...] L5-S1 facet joint injection under fluoroscopic guidance.[facility] [id number] NotePROCEDURE: XR SHOULDER RT 2V or > [...] authenticated by: KINGSLEY CLEMENTS Date: 2022-05-09 09:21[facility] [id number] NotePROCEDURE: XR WRIST LT MIN 3 V [...] authenticated by: KINGSLEY CLEMENTS Date: 2022-04-28 13:31[facility] [id number] NoteCONSULTATION CONSULTATION DATE: 04/03/2022 HISTORY OF PRESENT [...] q.h.s., Neurontin per her PCP, Lavinia and Ambien. She recently got her medical [...] her in three months, unless otherwise indicated.[facility] [id number] NoteCONSULTATION CONSULTATION DATE: 01/02/2022 This is a [...] prescription was sent by Dr. Macedo to [facility] in [place] for the compounded cream. She needs a [...] in three months' time unless otherwise indicated.[facility] [id number] NotePROCEDURE: XR ANKLE RT MIN 3 VIEWS, [...] Electronically authenticated by: KINGSLEY CLEMENTS Date: 2022-01-01 13:11[facility]09-28-2022 NotePROCEDURE: XR ANKLE RT MIN 3 [...] Electronically authenticated by: KINGSLEY CLEMENTS Date: 2022-01-01 13:11[facility]08-18-2022 NotePROCEDURE: XR FOOT RT MIN 3 VIEWS HISTORY: Pain in right foot , chronic COMPARISON: XR foot right 2020 FINDINGS: BONES:No fracture, dislocation, bone lesion. Small calcaneal degenerative enthesophytes. SOFT TISSUES:No visible soft tissue swelling. EFFUSION:None visible. OTHER: Negative. IMPRESSION: 1. No acute bone abnormality or significant degenerative joint disease. Electronically authenticated by: KINGSLEY CLEMENTS Date: 2021-11-21 16:13[facility]06-30-2022 NoteCONSULTATION CONSULTATION DATE: 10/03/2021 This is [...] patient agrees with the plan of care. [facility] Signed and Approved by: ZELDA MCDANIEL . 10/10/2021 10:22:00[facility] Diagnosis Onset Date Resolution Status Allergies acute Bipolar 2 disorder acute Hypertension acute Morbid obesity with BMI of 45.0-49.9, adult acute OSMANY (obstructive sleep apnea) acute Restless legs syndrome acute [facility] Work Phone: Evaluation noteNo InformationNort D-Share Other Evaluation noteNo assessment information available [facility] Work Phone: Evaluation note* Diagnosis Encounter for [...] (CMS/HCC) Unspecified episodic mood disorder Primary hypertension ([facility]/HCC) Unspecified essential hypertension Left hip pain Pain in joint, pelvic region and thigh Open wound of anterior abdominal wall, initial encounter [facility] Diagnosis Acute cystitis with hematuria- Primary documented in this encounter [facility] note Author Jace Graham [facility] March 23, 2023 11:21am Note Date/Time March 23, 2023 11:21am [facility] [address] [place] [address] Gastroenterology H&P Signed Patient: Michelle Be MR#: [id number] : 1960 Acct:[id number] Age/Sex: 62 / F Adm Date: 3 Loc: Room: Type: [facility] Attending Dr: Jace Graham MD [...] signed by Jace Graham MD> 03/23/23 1121 [facility] Work Phone: History general Narrative - Reported* [...] see above surg Hospitalization History stroke 2018 Hyperpia Other Hospital Discharge instructions Additional Instructions Regular Diet No Activity [facility]ions[facility] Work Phone: Hospital Discharge instructions Additional Instructions [...] years. -Follow up with PCP. -Office number [phone].[facility] Work Phone: Summary Purpose Family History No [...] and content) DATE CREATED AUTHOR 02/18/2019 [facility] DATE CREATED AUTHOR AUTHOR'S ORGANIZ ATION 11/15/2021 [facility] DATE CREATED AUTHOR AUTHOR'S ORGANIZ ATION 08/16/2022 [facility] DATE CREATED AUTHOR AUTHOR'S ORGANIZ ATION 06/28/2023 [facility] DATE CREATED AUTHOR AUTHOR'S ORGANIZ ATION 07/24/2023 [facility] Care Teams (unrecognized sec tion and content) Team Status: Active Member Role Status Dates Adelaida Mcnair [facility] Primary Care Provider Active Team Status: Inactive Member Role Status Dates Adelaida Mcnair [facility] Primary Care Provider Active Gaudencio Monk MD Admit Provider, Attending Pr ovider Active Andreina Vieira , JOHANN Other Provider Active Camilla Pina , JOHANN Other Provider Active Ruchi Hurtado , JOHANN Other Provider Active Lisa Crooks , JOHANN Other Provider Active Tash Mejias , JOHANN Other Provider Active Elzbieta Kim , JOHANN Other Provider Active Walker Pringle MD Other Provider Active Adelaida Marsh , [employer] Other Provider Active Jessica Murillo , DO [...] MD Other Provider Active Joellen Le , [employer] Other Provider Active Severo Yancey MD Other Provider Active Rao Webber MD Other Provider Active Yuan Shi MD Other Provider Active Delroy Ramirez MD Other Provider Active Berta Coemr , DO Other Provider Active Negrito Ruiz , DO Other Provider Active Lacho Singh , DO Other Provider Active Rachana Hobson [employer] Other Provider Active Rob Lake , DO Other Provider Active Jeff Alvarez MD Other Provider Active Urmila Rinaldi [employer] Other Provider Active Bina Mayberry [employer] Other Provider Active Mir Bradford MD Other Provider Active Te Da Silva MD Other Provider Active Debra Landaverde , JOHANN Other Provider Active Team Status: Inactive Member Role Status Dates Adelaida Mcnair [facility] Primary Care Provider Active Jace Graham MD Attending Provider Active [employer] Relationship Specialty Start Date End Date José Luis Roberts MD [address] [place] [phone] PCP - General Family Medicine 05/18/23 Adelaida Carrion NP [address] [place] [phone] Referring Physician Nurse Practitioner 10/14/22 [employer] Relationship Specialty Start Date End Date José Luis Roberts MD [address] [place] [phone] PCP - General Family Medicine 05/18/23 Adelaida Carrion NP [address] [place] [phone] Referring Physician Nurse Practitioner 10/14/22 [employer] Watchman Relationship Specialty Start Date End Date José Luis Roberts MD [address] [place] [phone] PCP - General Family Medicine 05/18/23 Adelaida Carrion NP [address] [place] [phone] Referring Physician Nurse Practitioner 10/14/22 REASON FOR [...] PRIMARY CLINICAL RECORDS. [facility] [employer] [facility]. provides no warranty or guarantee of the accuracy or completeness of information in this document.
[2023-07-29 07:07] LABS: Basophils Absolute Auto 0.1 10^3/uL (0.0-0.1); Basophils Percent Auto 0.7 % (0.2-2.0); Eosinophils Absolute Auto 0.1 10^3/uL (0.0-0.7); Eosinophils Percent Auto 1.8 % (0.9-7.0); Hematocrit 41.1 % (36.0-48.0); Hemoglobin 13.3 g/dL (12.0-16.0); Immature Granulocytes Abs Auto 0.02 10^3/uL (0.00-0.03); Immature Granulocytes Pct Auto 0.3 % (0.0-0.5); Lymphocytes Absolute Auto 2.3 10^3/uL (1.2-3.8); Lymphocytes Percent Auto 30.8 % (20.5-60.0); Mean Corpuscular HGB Conc 32.4 g/dL (29.9-35.2); Mean Corpuscular Hemoglobin 28.7 pg (26.7-34.0); Mean Corpuscular Volume 88.8 fL (81.0-99.0); Mean Platelet Volume 11.5 fL (9.5-13.5); Monocytes Absolute Auto 0.4 10^3/uL (0.3-0.8); Monocytes Percent Auto 5.8 % (1.7-12.0); Neutrophils Absolute Auto 4.5 10^3/uL (1.4-6.5); Neutrophils Percent Auto 60.6 % (43.0-75.0); Platelet Count 236 10^3/uL (150-450); Red Blood Count 4.63 10^6/uL (4.20-5.40); Red Cell Distribution Width 14.5 % (11.0-15.0); White Blood Count 7.4 10^3/uL (4.0-11.0)
[2023-07-29 07:18] LABS: Estimated Average Glucose 114 mg/dL; Glycohemoglobin A1C 5.6 % (4.5-6.2)
[2023-07-29 07:44] LABS: Creatinine Urine Random 95.95 mg/dL (20.00-300.00); Microalbum Creatinine Ratio Ur 13.5 mg/g (0.0-29.9); Microalbumin Urine Random <1.3 mg/dL (<=30.0)
[2023-07-29 07:50] LABS: Alanine Aminotransferase 34 U/L (14-59); Albumin Globulin Ratio 1.1; Albumin Level 3.8 g/dL (3.4-5.0); Alkaline Phosphatase 82 U/L (46-116); Anion Gap 16.8; Aspartate Amino Transferase 22 U/L (15-37); BUN Creatinine Ratio 21.2; Bilirubin Total 0.4 mg/dL (0.2-1.0); Calcium 9.4 mg/dL (8.5-10.1); Carbon Dioxide 25.7 mmol/L (21.0-32.0); Chloride 105 mmol/L (98-107); Chol HDL Ratio 3.5; Cholesterol 173 mg/dL (<=200); Estimated GFR (African America >60 (>=60); Estimated GFR (Non-African Ame 57 (>=60); Globulin 3.5 g/dL; Glucose 98 mg/dL (74-106); HDL Cholesterol 50 mg/dL (40-60); LDL Cholesterol Calculated 94.2 mg/dL; Potassium 4.5 mmol/L (3.5-5.1); Sodium 143 mmol/L (136-145); Total Protein 7.3 g/dL (6.4-8.2); Triglycerides 144 mg/dL (<=150); Uric Acid 5.9 mg/dL (2.6-6.0); VLDL CHOLESTEROL 28.8 mg/dL
[2023-07-29 08:08] LABS: Bilirubin Urine NEGATIVE (NEGATIVE); Blood Urine NEGATIVE (NEGATIVE); Clarity Urine CLEAR (CLEAR); Color Urine DK. YELLOW (YELLOW); Glucose Urine UA NEGATIVE (NEGATIVE); Ketones Urine NEGATIVE (NEGATIVE); Leukocyte Esterase Urine TRACE (NEGATIVE); Nitrite Urine NEGATIVE (NEGATIVE); Protein Urine NEGATIVE (NEG/TRACE); Specific Gravity Urine 1.025 (1.005-1.025); Urobilinogen Urine 0.2 EU/dL (0.2-1.0); pH Urine 5.5 (5.0-9.0)
[2023-07-29 08:10] LABS: Urine Microscopic Indicated YES
[2023-07-29 08:11] LABS: RBC Urine NONE SEEN #/HPF (0-2)
[2023-07-29 08:12] LABS: Bacteria Urine NONE SEEN #/HPF (NONE SEEN); Mucus Urine MODERATE (NONE SEEN); Squamous Epithelial Cell Urine FEW #/LPF (NONE/RARE)
[2023-07-29 08:13] LABS: Urine Culture Indicated NO
== END 2023-07-29 06:11 | disposition home or self-care (01) ==
LOC: LAB 06:15
PROVIDERS: PCP Nurse Practitioner; Visit Provider Nurse Practitioner
DX: D64.9 Anemia, unspecified (principal); I10 Essential (primary) hypertension; M81.0 Age-related osteoporosis without current pathological fracture; R73.03 Prediabetes; M10.9 Gout, unspecified; E56.9 Vitamin deficiency, unspecified
CPT/HCPCS: 36415; 80053; 80061; 81001; 82043; 82306; 82570; 82607; 83036; 83540; 84550; 85025

== ENCOUNTER 2023-08-04 07:26 | Day surgery (SDC) | payer MEDICARE, SELFPAY ==
--- OUTSIDE RECORDS SUMMARY | 2023-08-04 07:30 | XMS_ITS | CCD ---
Author Organization [facility] Care Team Providers Care [employer] Worker Name Role Phone EBHEIM, SUKI Admitting Unavailable EBRAHEIM, SUKI Attending Unavailable AICHHOLZ, ADELAIDA Referring Unavailable AICHHOLZ, ADELAIDA Primary Care Unavailable HI Procedure Practitioner Unavailab HELADIO JacobIL Surgeon Unavailable HI Procedure Practitioner Unavailab CHAPARRITA Goncalves Surgeon Unavailable BRIDGETTE MACEDO Admitting Unavailable BRIDGETTE MACEDO Attending Unavailable AICHHOLZ, INTERNAL GRINDING MACHINE OPERATOR ADEALIDA Primary Care Unavailable ZIMMER ., DR FINA Iverson Admitting Unavailable ZIMMER ., DR IFNA Iverson Attending Unavailable AICHHOLZ, INTERNAL GRINDING MACHINE OPERATOR ADELAIDA Primary Care Unavailable MCDANIEL ., ZELDA Consulting Unavailable LAKSHMIPATHY ., NARENDRANATH Consulting Paula vailable LAKSHMIPATHY ., NARENDRANATH Admitting Paula vailable LAKSHMIPATHY ., NARJEANARANATH Attending Paula vailable AICHHOLZ, INTERNAL GRINDING MACHINE OPERATOR ADELAIDA Primary Care Unavailable LAKSHMIPATHY ., NARENDRANATH Consulting Paula vailable AICHHOLZ, INTERNAL GRINDING MACHINE OPERATOR ADELAIDA Primary Care Unavailable MARKER ., DR CHAUDHRY Admitting Unavailable MARKER ., DR CHAUDHRY Attending Unavailable MARKER ., DR CHAUDHRY Consulting Unavailable AICHHOLZ, INTERNAL GRINDING MACHINE OPERATOR ADELAIDA Admitting Unavailable AICHHOLZ, INTERNAL GRINDING MACHINE OPERATOR ADELAIDA Attending Unavailable AICHHOLZ, INTERNAL GRINDING MACHINE OPERATOR ADELAIDA Primary Care Unavailable ZIMMER ., DR FINA Iverson Admitting Unavailable ZIMMER ., DR FINA Iverson Attending Unavailable AICHHOLZ, INTERNAL GRINDING MACHINE OPERATOR ADELAIDA Primary Care Unavailable MCDANIEL ., ZELDA Consulting Unavailable ZIMMER ., DR FINA Iverson Admitting Unavailable ZIMMER ., DR FINA Iverson Attending Unavailable AICHHOLZ, INTERNAL GRINDING MACHINE OPERATOR ADELAIDA Primary Care Unavailable MCDANIEL ., ZELDA Consulting Unavailable AICHHOLZ, INTERNAL GRINDING MACHINE OPERATOR ADELAIDA Admitting Unavailable AICHHOLZ, INTERNAL GRINDING MACHINE OPERATOR ADELAIDA Attending Unavailable AICHHOLZ, INTERNAL GRINDING MACHINE OPERATOR ADELAIDA Primary Care Unavailable AICHHOLZ, INTERNAL GRINDING MACHINE OPERATOR ADELAIDA Consulting Unavailable AICHHOLZ, INTERNAL GRINDING MACHINE OPERATOR ADELAIDA Admitting Unavailable AICHHOLZ, INTERNAL GRINDING MACHINE OPERATOR ADELAIDA Attending Unavailable AICHHOLZ, INTERNAL GRINDING MACHINE OPERATOR ADELAIDA Primary Care Unavailable AICHHOLZ, INTERNAL GRINDING MACHINE OPERATOR ADELAIDA Consulting Unavailable MISC, DR COTE Admitting Unavailable MISC, DR COTE Attending Unavailable AICHHOLZ, INTERNAL GRINDING MACHINE OPERATOR ADELAIDA Primary Care Unavailable AICHHOLZ, INTERNAL GRINDING MACHINE OPERATOR ADELAIDA Consulting Unavailable PRTIESHC, DR COTE Consulting Unavailable STARR, DR KINGSLEY Atkins Consulting Unavailable ZIMMER ., DR FINA Iverson Admitting Unavailable ZIMMER ., DR FINA Iverson Attending Unavailable AICHHOLZ, INTERNAL GRINDING MACHINE OPERATOR ADELAIDA Primary Care Unavailable MCDANIEL ., ZELDA Consulting Unavailable ZIMMER ., DR FINA Iverson Admitting Unavailable ZIMMER ., DR FINA Iverson Attending Unavailable AICHOLZ, INTERNAL GRINDING MACHINE OPERATOR ADELAIDA Primary Care Unavailable ZIMMER ., DR FINA Iverson Consulting Unavailable OMID LAY Consulting Unavailable ZIMMER ., DR FINA Iverson Admitting Unavailable ZIMMER ., DR FINA Iverson Attending Unavailable AICHOLZ, INTERNAL GRINDING MACHINE OPERATOR ADELAIDA Primary Care Unavailable MCDANIEL ., ZELDA Consulting Unavailable AICHHOLZ, INTERNAL GRINDING MACHINE OPERATOR ADELAIDA Primary Care Unavailable HALKER ., ARIAN Admitting Unavailable HALKER ., ARIAN Attending Unavailable LAKSHMIPATHY ., NARENDRANATH Consulting Paula vailable HALKER ., ARIAN Consulting Unavailable LAKSHMIPATHY ., NARENDRANATH Admitting Paula vailable LAKSHMIPATHY ., NARENDRANATH Attending Paula vailable AICHHOLZ, INTERNAL GRINDING MACHINE OPERATOR ADELAIDA Primary Care Unavailable LAKSHMIPATHY ., NARENDRANATH Consulting Paula vailable AICHHOLZ, INTERNAL GRINDING MACHINE OPERATOR ADELAIDA Admitting Unavailable AICHHOLZ, INTERNAL GRINDING MACHINE OPERATOR ADELAIDA Attending Unavailable AICHHOLZ, INTERNAL GRINDING MACHINE OPERATOR ADELAIDA Primary Care Unavailable AICHHOLZ, INTERNAL GRINDING MACHINE OPERATOR ADELAIDA Consulting Unavailable BRIDGETTE MACEDO Admitting Unavailable BRIDGETTE MACEDO Attending Unavailable AICHHOLZ, INTERNAL GRINDING MACHINE OPERATOR ADELAIDA Primary Care Unavailable STARR, DR KINGSLEY Atkins Consulting Unavailable BRIDGETTE MACEDO Consulting Unavailable PURA, GILMER Admitting Unavailable PURA, GILMER Attending Unavailable PURA, GILMER Consulting Unavailable AICHHOLZ, INTERNAL GRINDING MACHINE OPERATOR ADELAIDA Primary Care Unavailable AICHHOLZ, INTERNAL GRINDING MACHINE OPERATOR ADELAIDA Primary Care Unavailable DR WILLI RINALDI Admitting Unavailable DR WILLI RINALDI Attending Unavailable DEEJAY, DR WILLI Atkins Consulting Unavailable AICHHOLZ, INTERNAL GRINDING MACHINE OPERATOR ADELAIDA Primary Care Unavailable ALMAZ ., DANNY Admitting Unavailable ALMAZ ., DANNY Attending Unavailable DR KINGSLEY CLEMENTS Consulting Unavailable ALMAZ ., DANNY Consulting Unavailable LAKSHMIPATHY ., NARENDRANATH Admitting Paula vailable LAKSHMIPATHY ., NARENDRANATH Attending Paula vailable AICHHOLZ, INTERNAL GRINDING MACHINE OPERATOR ADELAIDA Primary Care Unavailable AICHHOLZ, INTERNAL GRINDING MACHINE OPERATOR ADELAIDA Admitting Unavailable AICHHOLZ, INTERNAL GRINDING MACHINE OPERATOR ADELAIDA Attending Unavailable AICHHOLZ, INTERNAL GRINDING MACHINE OPERATOR ADELAIDA Primary Care Unavailable AICHHOLZ, INTERNAL GRINDING MACHINE OPERATOR ADELAIDA Admitting Unavailable AICHHOLZ, INTERNAL GRINDING MACHINE OPERATOR ADELAIDA Attending Unavailable AICHHOLZ, INTERNAL GRINDING MACHINE OPERATOR ADELAIDA Primary Care Unavailable AICHHOLZ, INTERNAL GRINDING MACHINE OPERATOR ADELAIDA Consulting Unavailable ZIEBER, DR KINGSLEY Atkins Consulting Unavailable HALKER ., ARAIN Admitting Unavailable HALKER ., ARIAN Attending Unavailable AICHHOLZ, INTERNAL GRINDING MACHINE OPERATOR ADELAIDA Primary Care Unavailable Aichholz, Adelaida J Primary Care Provider MD Gaudencio Monk Admit Provider [phone] MD Gaudencio Monk Attending Provider Dariel RN Andreina Other Provider Unavailable JOHANN Pina Other Provider Unavailable JOHANN Hurtado Other Provider Unavailable JOHANN Crooks Other Provider Unavailable JOHANN Mejias Other Provider Unavailable Judy RN Elzbieta Other Provider Unavailable MD Walker Pringle Other Provider ROSS Marsh Other Provider DO Jessica Murillo Other Provider MD Obdulio Bragg Other Provider [phone] DO Joon Cristina Other Provider [phone] MD Torin Robert Other Provider MD Dawn [...] Care Provider MD Jace Graham Attending Provider [phone] Sheyla WARREN, Adelaida Unavailable José Luis Roberts MD Primary Care Provider ASHLEIGH HINES Attending Unavailable ADELAIDA CARRION Attending Unavailable ASHLEIGH HINES Attending Unavailable SHEYLA, ADELAIDA Attending Unavailable ADELAIDA CARRION Attending Unavailable JR. HARRY GEORGE C Attending Unavaila ble SHEYLA, ADELAIDA Attending Unavailable Eduardo Monk Admitting Unavailab le Eduardo Monk Attending Unavailab le Adelaida Carrion Primary Care Unavailable Andreina Vieira Consulting Unavailable [...] romano Consulting Unavailable [place] Consulting Unavailable Daromar Obaymatildah Karo Consulting Unavailable Urmila Rinaldi Consulting Unavailable Bina Mayberry Consulting Unavailable Mir Bradford Consulting Unavailable Te Da Silva Consulting Unavailable Dbera Landaverde Consulting Unavailable Jace Graham Admitting Unavailable Jace Graham Attending Unavailable Adelaida Carrion Primary Care Unavailable Aleshia, Eduardo Admitting Unavailab Eduardo Connolly Attending Unavailab Adelaida Wagner Primary Care Unavailable Allergies Allergy Classification Reported Allergen(s) Allergy Type Date of Onset Reaction(s) Facility (7 sources) Adhesive Tape; Translations: [ADHESIVE TAPE] Propensity to adverse reactions (disorder) 04-06-19 14 rash [facility] Repository (3 sources) levETIRAcetam; Translations: [KEPPRA] Drug Allergy 07-02-19 19 [facility] Repository (3 sources) milnacipran; Translations: [SAVELLA] Drug Allergy 03-14-20 13 [facility] Repository (1 source) Penicillin; Translations: [PENICILLIN] Drug Allergy 01-16-20 18 [facility] Repository (5 sources) Prochlorperazin e; Translations: [COMPAZINE] Drug Allergy 03-14-20 13 agitation [facility] Repository (12 sources) Tetracycline; Translations: [TETRACYCLINE] Drug Allergy 04-06-19 13 Hives, Unknown [facility] Repository (4 sources) Penicillins Drug allergy (disorder) 04-06-19 13 Unknown Reaction [facility] Repository (9 sources) levETIRAcetam; Translations: [levetiracetam] Drug Allergy 12-13-19 22 Hallucinations , Other [facility] (9 sources) milnacipran; Translations: [milnacipran] Drug Allergy 12-13-19 22 hives, Hallucinations , Other, Unknown [facility] (7 sources) Prochlorperazin e; Translations: [prochlorperazi ne] Drug Allergy 12-13-19 22 Unknown, Other [facility] (2 sources) Penicillin G Drug Allergy as a child Game Blisters [facility] [employer] Other (2 sources) Tetracaine Drug Allergy Unknown [employer] Other (4 sources) Penicillins Drug Intolerance 12-13-19 [...] 11:00pm Start: 11-17-2022 take 1 tablet by [facility] once daily Ferrous Sulfate (Iron (Ferrous [...] 2023 12:00am take 2 tablets by mo [facility] once daily at bedtime Melatonin 10 MG 2 TABLETS Orally QHS Active Melatonin 12 MG tablet dispersible (4 sources) Melatonin 12 MG tablet dispersible 1 (one) time each day at the same time. 0 Active Multiple Vitamins-Minerals (BARIATRIC MULTIVITAMINS/IRON PO) (4 sources) Multiple Vitamins-Minerals (BARIATRIC MULTIVITAMINS/IRON PO) Bariatric Multivitamins/Iron 0 Active Kcangipmliox-Iqi-Azgk-Fa- Vit K (Bariatric Multivitamins) 45 mg iron- 800 mcg-120 mcg Capsule (2 sources) Start: 11-17-2022 take 1 capsule by mouth once daily Wlxlisjdpuqf-Opn-Tgka-Fa -Vit K (Bariatric Multivitamins) 45 mg iron- 800 mcg-120 mcg Capsule Active 1 CAP PO Daily November 16, 2022 11:00pm Start: 11-17-2022 take 1 capsule by [facility] once daily Sneesnxfjsgo-Yyt-Uisf-Fa-Vit K (Bariatri c Multivitamins) 45 mg iron- 800 mcg-120 mcg Capsule Active 1 CAP PO Daily November 17, 2022 12:00am nystatin 100 unt/mg topical powder (4 sources) Polyene Antifungal nystatin (Myc ostatin) 741029 UNIT/GM powder Apply 1 application topically in [...] Other intermediate (current) drug therapy; Translations: [OTH USP CURRENT DRUG THERAPY] Onset: 04-29-2022 Episodic Other [...] on 03-23-2023 Amphetamines Ql (U) Negative Negative [facility] Barbiturates [Presence] in U rine by Screen methodOrdered By: Jace Graham on 03-23-2023 Barbiturates Screen Ql (U) Negative Negative [facility] Benzodiazepines Screen Ql (U )Ordered By: Jace Graham on 03-23-2023 Benzodiazepines Ql (U) Negative Negative [facility] Benzoylecgonine [Presence] i n Urine by Screen methodOrdered By: Jace Graham on 03-23-2023 Benzoylecgonine Screen Ql (U) Negative Negative [facility] Cannabinoids [Presence] in U rine by Screen methodOrdered By: aJce Graham on 03-23-2023 Cannabinoids Screen Ql (U) Negative Negative [facility] Comment on above: These are unconfirme d results and should not be used for legal purposes. Drug Cut-Off Concentration: AMPH 1000 ng/mL ELKIN 200 ng/mL ATIYA 200 ng/mL COCM 300 ng/mL OP 300 ng/mL PCP 25 ng/mL THC 20 ng/mL Drug Screen,Urineon 03-23-20 Amphetamine Screen,Urine Negative Normal Negative [facility] Comment on above: Performed By: #### U RDS #### [address] Barbiturate Screen,Urine Negative Normal Negative [facility] Comment on above: Performed By: #### U RDS #### [address] Benzodiazepines Screen,Urine Negative Normal Negative [facility] Comment on above: Performed By: #### U RDS #### [address] Cannabinoid Screen,Urine Negative Normal Negative [facility] Comment on above: Result Comment: Thes e are unconfirmed results and should not be used for legal purposes. Drug Cut-Off Concentration: AMPH 1000 ng/mL ELKIN 200 ng/mL ATIYA 200 ng/mL COCM 300 ng/mL OP 300 ng/mL PCP 25 ng/mL THC 20 ng/mL PERFORMED BY: [place] [address] PATHOLOGIST ARTS THERAPIST AN CURRY M.D. Performed By: #### U RDS #### [place] [address] [place] Cocaine Screen,Urine Negative Normal Negative [facility] Comment on above: Performed By: #### U RDS #### [place] [address] [place] Opiate Screen,Urine Negative Normal Negative [facility] Comment on above: Performed By: #### U RDS #### [place] [address] [place] Phencyclidine Screen,Urine Negative Normal Negative [facility] Comment on above: Performed By: #### U RDS #### [facility] [address] Opiates [Presence] in Urine by Screen methodOrdered By: Jace Graham on 03-23-2023 Opiates Screen Ql (U) Negative Negative [facility] Phencyclidine Screen Ql (U)O rdered By: Jace Graham on 03-23-2023 Phencyclidine Ql (U) Negative Negative [facility] Cholesterol [Mass/volume] in Serum or PlasmaOrdered By: Eduardo Monk on 11-18-2022 Cholesterol [Mass/Vol] 159 mg/dL 140-200 [facility] Comment on above: Chol less than [...] 11-18-2022 Cholesterol [Mass/Vol] 159 mg/dL Normal 140-200 [facility] Comment on above: Order Comment: teri barney to tomorrow morning Result Comment: Chol less than 200 mg/dl low risk Chol 201-239 mg/dl borderline risk Chol 240 mg/dl and greater high risk Performed By: #### L IPID #### [facility] [id number] [facility] Cholesterol in HDL [Mass/Vol] 46 mg/dL Normal 23-92 [facility] Comment on above: Order Comment: teri barney to tomorrow morning Result Comment: HDL CHOL ATP-III CLASSIFICATION Cardiovascular Risk HDL > or equal to 60 mg/dL LOW HDL < 40 mg/dL HIGH Performed By: #### L IPID #### [facility] [address] [id number] [facility] Cholesterol.total/Chol esterol in HDL [Mass ratio] 3.5 {ratio} Normal <5.0 [facility] Comment on above: Order Comment: trei barney to tomorr morning Result Comment: PERF ORMED BY: [place] [address] PATHOLOGIST ARTS THERAPIST AN CURRY M.D. Performed By: #### L IPID #### [facility] [id number] [facility] LDL Cholesterol,Calculated 84 mg/dL Normal 0-100 [facility] Comment on above: Order Comment: teri barney to orr morning Result Comment: LDL ATP III CLASSIFICATION LDL less than 100 mg/dL Optimal LDL 100-129 mg/dL Near or above optimal LDL 130-159 mg/dL Borderline high LDL 160-189 mg/dL High LDL greater than 189 mg/dL Very high Performed By: #### L IPID #### [facility] [id number] [facility] Triglyceride w/Reflex 144 mg/dL Normal 0-149 [facility] Comment on above: Order Comment: teri barney to orr morning Result Comment: TRIG ATP III CLASSIFICATION TRIG less than 150 mg/dL Normal TRIG 150-199 mg/dL Borderline high TRIG 200-500 mg/dL High TRIG greater than 500 mg/dL Very high Standard traceable to the Center for Disease Conrtrol and Prevention (CDC) test method. Performed By: #### L IPID #### [facility] [address] [id number] [facility] VLDL CHOLESTEROL 28 mg/dL Normal [facility] Comment on above: Order Comment: teri barney to orr morning Performed By: #### L IPID #### [facility] [address] [id number] [facility] Serum or plasma high density [...] 11-18-2022 TSH Qn 2.13 m[IU]/L Normal 0.45-5.33 [facility] Comment on above: Performed By: #### T SH3, [id number] #### [address] Thyrotropin [Units/volume] i n Serum or [...] 25 Hydroxy Total 50.4 ng/mL Normal 30-100 [facility] Comment on above: Result Comment: SKYLER MIN D STATUS 25(OH)VITAMIN D RANGE (ng/mL) Deficient <20 Insufficient 20 to <30 Sufficient 30 to 100 Reference: Bin MF,Lakshmi NC, Cristian SMART, et al. Evaluation,treatment, and prevention of vitamin D deficiency; an Endocrine Society clinical practice guideline. JCEM. 2010; 96(7):1911-30. PERFORMED BY: [facility] [address] [place] [address] PATHOLOGIST ARTS THERAPIST AN CURRY M.D. Performed By: #### T SH3, [id number] #### [facility] [address] Vitamin D+Metabolites [Mass/ volume] in Serum [...] 07-25-2022 BASO # 0.1 103/ul Normal 0.0-0.1 [facility] Comment on above: Performed By: #### A 1C #### [facility] [address] [address] [address] Bebeto Alvarado Basophils/100 WBC (Bld) 0.6 % Normal 0.2-2.0 [facility] Comment on above: Performed By: #### A 1C #### [facility] [address] [address] [address] Bebeto Alvarado EO # 0.2 103/ul Normal 0.0-0.7 [facility] Comment on above: Performed By: #### A 1C #### [facility] [address] [address] [address] Bebeto Alvarado Eosinophils/100 WBC (Bld) 2.3 % Normal 0.9-7.0 [facility] Comment on above: Performed By: #### A 1C #### [facility] [address] [address] [address] Bebeto Alvarado Erythrocyte distribution width (RBC) [Ratio] 13.8 % Normal 11.0-15.0 [facility] Comment on above: Performed By: #### A 1C #### [facility] [address] [place] [address] Dr. Bebeto Alvarado Hematocrit (Bld) [Volume fraction] 41.2 % Normal 36.0-48.0 [facility] Comment on above: Performed By: #### A 1C #### [facility] [address] [place] [address] Dr. Bebeto Alvarado Hemoglobin (Bld) [Mass/Vol] 13.2 g/dL Normal 12.0-16.0 [facility] Comment on above: Performed By: #### A 1C #### [facility] [address] [place] [address] Dr. Bebeto Alvarado IG # 0.03 10e3/ul Normal 0.00-0.03 [facility] Comment on above: Performed By: #### A 1C #### [facility] [address] [place] [address] Dr. Bebeto Alvarado IG % 0.4 % Normal 0.0-0.5 [facility] Comment on above: Performed By: #### A 1C #### [facility] [address] [place] [address] Dr. Bebeto Alvardao LYMPH # 2.1 103/ul Normal 1.2-3.8 [facility] Comment on above: Performed By: #### A 1C #### [facility] [address] [place] [address] Dr. Bebeto Alvarado Lymphocytes/100 WBC (Bld) 25.9 % Normal 20.5-60.0 [facility] Comment on above: Performed By: #### A 1C #### [facility] [address] [place] [address] Dr. Bebeto Alvarado MANUAL DIFF REQ NO Normal [facility] Comment on above: Performed By: #### A 1C #### [facility] [address] [place] [address] Dr. Bebeto Alvarado MCH (RBC) [Entitic mass] 28.0 pg Normal 26.7-34.0 [facility] Comment on above: Performed By: #### A 1C #### [facility] [address] [place] [address] Dr. Bebeto Alvarado MCHC (RBC) [Mass/Vol] 32.0 g/dL Normal 29.9-35.2 [facility] Comment on above: Performed By: #### A 1C #### [facility] [address] [place] [address] Dr. Bebeto Alvarado MCV (RBC) [Entitic vol] 87.5 fL Normal 81.0-99.0 [facility] Comment on above: Performed By: #### A 1C #### [facility] [address] [place] [address] Dr. Bebeto Alvarado MONO # 0.5 103/ul Normal 0.3-0.8 [facility] Comment on above: Performed By: #### A 1C #### [facility] [address] [place] [address] Dr. Bebeto Alvarado Monocytes/100 WBC (Bld) 6.6 % Normal 1.7-12.0 [facility] Comment on above: Performed By: #### A 1C #### [facility] [address] [place] [address] Dr. Bebeto Alvarado NEUT # 5.1 103/ul Normal 1.4-6.5 [facility] Comment on above: Performed By: #### A 1C #### [facility] [address] [place] [address] Dr. Bebeto Alvarado Neutrophils/100 WBC (Bld) 64.2 % Normal 43.0-75.0 [facility] Comment on above: Performed By: #### A 1C #### [facility] [address] [place] [address] Dr. Bebeto Alvarado Platelet mean volume (Bld) [Entitic vol] 11.2 fL Normal 9.5-13.5 [facility] Comment on above: Performed By: #### A 1C #### [facility] [address] [place] [address] Dr. Bebeto Alvarado PLT 252 103/ul Normal 150-450 [facility] Comment on above: Performed By: #### A 1C #### [facility] [address] [place] [address] Dr. Bebeto Alvarado RBC 4.71 106/ul Normal 4.20-5.40 [facility] Comment on above: Performed By: #### A 1C #### [facility] [address] [address] [address] Bebeto Alvarado WBC 8.0 103/ul Normal 4.0-11.0 [facility] Comment on above: Performed By: #### A 1C #### [facility] [address] [address] [address] Bebeto Alvarado GLYCOHEMOGLOBIN A1Con 2022 ADA RECOMMENDATION SEE BELOW Normal [facility] Comment on above: Result Comment: ADA RECOMMENDED LIMIT 4.0 - 6.0 ADA THERAPEUTIC TARGET < 7.0 ACTION SUGGESTED > 7.0 Performed By: #### A 1C #### [facility] [address] [place] [address] Dr. Bebeto Alvarado Glucose [Mass/Vol] 114 mg/dL Normal [facility] Comment on above: Performed By: #### A 1C #### [facility] [address] [address] [address] Bebeto Alvarado HbA1c (Bld) [Mass fraction] 5.6 % Normal 4.5-6.2 [facility] Comment on above: Performed By: #### A 1C #### [facility] [address] [address] [address] Bebeto Alvarado IRONon 07-25-2022 Iron [Mass/Vol] 60.0 ug/dL Normal 50.0-170.[address] [facility] Comment on above: Performed By: #### V ITB12, IRON #### [facility] [address] [place] [address] Dr. Bebeto Alvarado LIPID PROFILEon 07-25-2022 CHOL-HDL RATIO NORM SEE BELOW Normal [facility] Comment on above: Result Comment: 3.3 - 4.4 LOW RISK 4.4 - 7.1 AVERAGE RISK 7.1 - 11.0 MODERATE RISK >11.0 HIGH RISK Performed By: #### C MP, LIPID #### [facility] [address] [place] [address] Dr. Bebeto Alvarado Cholesterol [Mass/Vol] 144 mg/dL Normal <=200 [facility] Comment on above: Performed By: #### C MP, LIPID #### [facility] [address] [address] [address] Bebeto Alvarado Cholesterol in HDL [Mass/Vol] 39 mg/dL Critically low 40-60 [facility] Comment on above: Performed By: #### C MP, LIPID #### [facility] [address] [address] [address] Bebeto Alvarado Cholesterol in LDL [Mass/Vol] 74.6 mg/dL Normal [facility] Comment on above: Performed By: #### C MP, LIPID #### [facility] [address] [address] [address] Bebeto Alvarado Cholesterol.total/Chol esterol in HDL [Mass ratio] 3.7 {ratio} Normal [facility] Comment on above: Performed By: #### C MP, LIPID #### [facility] [address] [address] [address] Bebeto Alvarado HDL NORMAL > or = 60 mg/dl - LO W CARDIOVASCULAR RISK <40 mg/dl - HIGH CARDIOVASCULAR RISK Normal [facility] Comment on above: Performed By: #### C MP, LIPID #### [facility] [address] [address] [address] Bebeto Alvarado LDL CALC NORMAL SEE BELOW Normal [facility] Comment on above: Result Comment: <100 mg/dl OPTIMAL 100 - 129 mg/dl NEAR OR ABOVE OPTIMAL 130 - 159 mg/dl BORDERLINE HIGH 160 - 189 mg/dl HIGH >190 mg/dl VERY HIGH Performed By: #### C MP, LIPID #### [facility] [address] [address] [address] Bebeto Alvarado Triglyceride [Mass/Vol] 152 mg/dL Critically high <=150 [facility] Comment on above: Performed By: #### C MP, LIPID #### [facility] [address] [place] [address] Dr. Bebeto Alvarado VLDL CALC 30.4 mg/dL Normal [facility] Comment on above: Performed By: #### C MP, LIPID #### [facility] [address] [address] [address] Bebeto Alavrado PROF 14(COMP METB)on 023 Albumin [Mass/Vol] 3.7 g/dL Normal 3.4-5.0 [facility] Comment on above: Performed By: #### C MP, LIPID #### [facility] [address] [address] [address] Bebeto Alvarado Albumin/Globulin [Mass ratio] 0.9 {ratio} Normal [facility] Comment on above: Performed By: #### C MP, LIPID #### [facility] [address] [address] [address] Bebeto Alvarado ALP [Catalytic activity/Vol] 90 U/L Normal 46-116 [facility] Comment on above: Performed By: #### C MP, LIPID #### [facility] [address] [address] [address] Bebeto Alvarado ALT [Catalytic activity/Vol] 38 U/L Normal 14-59 [facility] Comment on above: Performed By: #### C MP, LIPID #### [facility] [address] [address] [address] Bebeto Alvarado Anion gap [Moles/Vol] 12.1 mmol/L Normal [facility] Comment on above: Performed By: #### C MP, LIPID #### [facility] [address] [address] [address] Bebeto Alvarado AST [Catalytic activity/Vol] 26 U/L Normal 15-37 [facility] Comment on above: Performed By: #### C MP, LIPID #### [facility] [address] [address] [address] Bebeto Alvarado Bilirubin [Mass/Vol] 0.3 mg/dL Normal 0.2-1.0 [facility] Comment on above: Performed By: #### C MP, LIPID #### [facility] [address] [address] [address] Bebeto Alvarado Calcium [Mass/Vol] 9.3 mg/dL Normal 8.5-10.1 [facility] Comment on above: Performed By: #### C MP, LIPID #### [facility] [address] [address] [address] Bebeto Alvarado Chloride [Moles/Vol] 107 mmol/L Normal 98-107 [facility] Comment on above: Performed By: #### C MP, LIPID #### [facility] [address] [address] [address] Bebeto Alvarado CO2 [Moles/Vol] 27.9 mmol/L Normal 21.0-32.0 [facility] Comment on above: Performed By: #### C MP, LIPID #### [facility] [address] [address] [address] Bebeto Alvarado Creatinine [Mass/Vol] 0.95 mg/dL Normal 0.55-1.02 [facility] Comment on above: Performed By: #### C MP, LIPID #### [facility] [address] [place] [address] Dr. Bebeto Alvarado EGFR-AF SWAZI >60 Normal >=60 [facility] Comment on above: Performed By: #### C MP, LIPID #### [facility] [address] [address] [address] Bebeto Alvarado EGFR-NON AF SWAZI 60 mL/min/1.73m2 Normal >=60 [facility] Comment on above: Performed By: #### C MP, LIPID #### [facility] [address] [address] [address] Bebeto Alvarado Globulin (S) [Mass/Vol] 3.9 g/dL Normal [facility] Comment on above: Performed By: #### C MP, LIPID #### [facility] [address] [address] [address] Bebeto Alvarado Glucose [Mass/Vol] 108 mg/dL Critically high 74-106 [facility] Comment on above: Performed By: #### C MP, LIPID #### [facility] [address] [address] [address] Bebeto Alvarado Potassium [Moles/Vol] 4.0 mmol/L Normal 3.5-5.1 [facility] Comment on above: Performed By: #### C MP, LIPID #### [facility] [address] [place] [address] Dr. Bebeto Alvarado Protein [Mass/Vol] 7.6 g/dL Normal 6.4-8.2 [facility] Comment on above: Performed By: #### C MP, LIPID #### [facility] [address] [place] [address] Dr. Bebeto Alvarado Sodium [Moles/Vol] 143 mmol/L Normal 136-145 [facility] Comment on above: Performed By: #### C MP, LIPID #### [facility] [address] [place] [address] Dr. Bebeto Alvarado Urea nitrogen [Mass/Vol] 15.0 mg/dL Normal 7.0-18.0 [facility] Comment on above: Performed By: #### C MP, LIPID #### [facility] [address] [place] [address] Dr. Bebeto Alvarado Urea nitrogen/Creatinine [Mass ratio] 15.8 mg/mg Normal [facility] Comment on above: Performed By: #### C MP, LIPID #### [facility] [address] [place] [address] Dr. Bebeto Alvarado UA RANDOM W/MICROSCOPICon BACTERIA NONE SEEN Normal NONE SEEN [facility] Comment on above: Performed By: #### A 1C #### [facility] [address] [place] [address] Dr. Bebeto Alvarado Bilirubin Ql (U) Negative Normal NEGATIVE [facility] Comment on above: Performed By: #### A 1C #### [facility] [address] [place] [address] Dr. Bebeto Alvarado CAST NONE SEEN Normal NONE SEEN [facility] Comment on above: Performed By: #### A 1C #### [facility] [address] [place] [address] Dr. Bebeto Alvarado Clarity (U) CLEAR Normal CLEAR [facility] Comment on above: Performed By: #### A 1C #### [facility] [address] [place] [address] Dr. Bebeto Alvarado Color (U) YELLOW Normal YELLOW [facility] Comment on above: Performed By: #### A 1C #### [facility] [address] [place] [address] Dr. Bebeto Alvarado Crystals LM Nom (Urine sed) NONE SEEN Normal NONE SEEN [facility] Comment on above: Performed By: #### A 1C #### [facility] [address] [place] [address] Dr. Bebeto Alvarado Epithelial cells LM Ql (Urine sed) NONE SEEN Normal NONE SEEN /RARE [facility] Comment on above: Performed By: #### A 1C #### [facility] [address] [place] [address] Dr. Bebeto Alvarado Glucose Ql (U) Negative Normal NEGATIVE [facility] Comment on above: Performed By: #### A 1C #### [facility] [address] [place] [address] Dr. Bebeto Alvarado Hemoglobin Ql (U) Negative Normal NEGATIVE [facility] Comment on above: Performed By: #### A 1C #### [facility] [address] [place] [address] Dr. Bebeto Alvarado Ketones Ql (U) Negative Normal NEGATIVE [facility] Comment on above: Performed By: #### A 1C #### [facility] [address] [place] [address] Dr. Bebeto Alvarado LEUKOCYTES Negative Normal NEGATIVE [facility] Comment on above: Performed By: #### A 1C #### [facility] [address] [place] [address] Dr. Bebeto Alvarado MUCOUS NONE SEEN Normal NONE SEEN [facility] Comment on above: Performed By: #### A 1C #### [facility] [address] [place] [address] Dr. Bebeto Alvarado Nitrite Ql (U) Negative Normal NEGATIVE [facility] Comment on above: Performed By: #### A 1C #### [facility] [address] [place] [address] Dr. Bebeto Alvarado pH (U) 5.5 [pH] Normal 5-9 [facility] Comment on above: Performed By: #### A 1C #### [facility] [address] [place] [address] Dr. Bebeto Alvarado RBC NONE SEEN Abnormal 0-2 [facility] Comment on above: Performed By: #### A 1C #### [facility] [address] [place] [address] Dr. Bebeto Alvarado SPEC GRAVITY 1.030 Abnormal 1.005-<=1.02 5 [facility] Comment on above: Performed By: #### A 1C #### [facility] [address] [place] [address] Dr. Bebeto Alvarado UA PROTEIN Negative Normal NEGATIVE/ TRACE [facility] Comment on above: Performed By: #### A 1C #### [facility] [address] [place] [address] Dr. Bebeto Alvarado Urobilinogen Qn (U) 0.2 {Katerin'U}/dL Normal 0.2 - 1. 0 [facility] Comment on above: Performed By: #### A 1C #### [facility] [address] [place] [address] Dr. Bebeto Alvarado WBC NONE SEEN Normal NONE SEEN [facility] Comment on above: Performed By: #### A 1C #### [facility] [address] [place] [address] Dr. Bebeto Alvarado VITAMIN B12on 07-25-2022 Cobalamin (Vitamin B12) [Mass/Vol] 1684.0 pg/mL Critically high 193.0-986.0 [facility] Comment on above: Performed By: #### V ITB12, IRON #### [facility] [address] [place] [address] Dr. Bebeto Alvarado PROF CHEM 8 (BAS METB)on Anion gap [Moles/Vol] 12.2 mmol/L Normal [facility] Comment on above: Performed By: #### B MP #### [facility] [address] [place] [address] Dr. Bebeto Alvarado Calcium [Mass/Vol] 8.9 mg/dL Normal 8.5-10.1 [facility] Comment on above: Performed By: #### B MP #### [facility] [address] [place] [address] Dr. Bebeto Alvarado Chloride [Moles/Vol] 105 mmol/L Normal 98-107 [facility] Comment on above: Performed By: #### B MP #### [facility] [address] [address] [address] Bebeto Alvarado CO2 [Moles/Vol] 29.6 mmol/L Normal 21.0-32.0 [facility] Comment on above: Performed By: #### B MP #### [facility] [address] [address] [address] Bebeto Alvarado Creatinine [Mass/Vol] 0.95 mg/dL Normal 0.55-1.02 [facility] Comment on above: Performed By: #### B MP #### [facility] [address] [place] [address] Dr. Bebeto Alvarado EGFR-AF SWAZI >60 Normal >=60 [facility] Comment on above: Performed By: #### B MP #### [facility] [address] [address] [address] Bebeto Alvarado EGFR-NON AF SWAZI 60 mL/min/1.73m2 Normal >=60 [facility] Comment on above: Performed By: #### B MP #### [facility] [address] [place] [address] Dr. Bebeto Alvarado Glucose [Mass/Vol] 101 mg/dL Normal 74-106 [facility] Comment on above: Performed By: #### B MP #### [facility] [address] [address] [address] Bebeto Alvarado Potassium [Moles/Vol] 3.8 mmol/L Normal 3.5-5.1 [facility] Comment on above: Performed By: #### B MP #### [facility] [address] [address] [address] Bebeto Alvarado Sodium [Moles/Vol] 143 mmol/L Normal 136-145 [facility] Comment on above: Performed By: #### B MP #### [facility] [address] [address] [address] Bebeto Alvarado Urea nitrogen [Mass/Vol] 16.0 mg/dL Normal 7.0-18.0 [facility] Comment on above: Performed By: #### B MP #### [facility] [address] [place] [address] Dr. Bebeto Alvarado Urea nitrogen/Creatinine [Mass ratio] 16.8 mg/mg Normal [facility] Comment on above: Performed By: #### B MP #### [facility] [address] [place] [address] Dr. Bebeto Alvarado CBC AUTO DIFFon 11-21-2021 BASO # 0.1 103/ul Normal 0.0-0.1 [facility] Comment on above: Performed By: #### A 1C #### [facility] [address] [place] [address] Dr. Bebeto Alvarado Basophils/100 WBC (Bld) 1.0 % Normal 0.2-2.0 [facility] Comment on above: Performed By: #### A 1C #### [facility] [address] [place] [address] Dr. Bebeto Alvarado EO # 0.2 103/ul Normal 0.0-0.7 [facility] Comment on above: Performed By: #### A 1C #### [facility] [address] [place] [address] Dr. Bebeto Alvarado Eosinophils/100 WBC (Bld) 3.3 % Normal 0.9-7.0 [facility] Comment on above: Performed By: #### A 1C #### [facility] [address] [place] [address] Dr. Bebeto Alvarado Erythrocyte distribution width (RBC) [Ratio] 13.8 % Normal 11.0-15.0 [facility] Comment on above: Performed By: #### A 1C #### [facility] [address] [place] [address] Dr. Bebeto Alvarado Hematocrit (Bld) [Volume fraction] 38.8 % Normal 36.0-48.0 [facility] Comment on above: Performed By: #### A 1C #### [facility] [address] [place] [address] Dr. Bebeto Alvarado Hemoglobin (Bld) [Mass/Vol] 12.5 g/dL Normal 12.0-16.0 [facility] Comment on above: Performed By: #### A 1C #### [facility] [address] [place] [address] Dr. Bebeto Alvarado IG # 0.02 10e3/ul Normal 0.00-0.03 [facility] Comment on above: Performed By: #### A 1C #### [facility] [address] [place] [address] Dr. Bebeto Alvarado IG % 0.3 % Normal 0.0-0.5 [facility] Comment on above: Performed By: #### A 1C #### [facility] [address] [place] [address] Dr. Bebeto Alvarado LYMPH # 1.9 103/ul Normal 1.2-3.8 [facility] Comment on above: Performed By: #### A 1C #### [facility] [address] [place] [address] Dr. Bebeto Alvarado Lymphocytes/100 WBC (Bld) 29.6 % Normal 20.5-60.0 [facility] Comment on above: Performed By: #### A 1C #### [facility] [address] [place] [address] Dr. Bebeto Alvarado MANUAL DIFF REQ NO Normal [facility] Comment on above: Performed By: #### A 1C #### [facility] [address] [place] [address] Dr. Bebeto Alvarado MCH (RBC) [Entitic mass] 28.0 pg Normal 26.7-34.0 [facility] Comment on above: Performed By: #### A 1C #### [facility] [address] [place] [address] Dr. Bebeto Alvarado MCHC (RBC) [Mass/Vol] 32.2 g/dL Normal 29.9-35.2 [facility] Comment on above: Performed By: #### A 1C #### [facility] [address] [place] [address] Dr. Bebeto Alvarado MCV (RBC) [Entitic vol] 86.8 fL Normal 81.0-99.0 [facility] Comment on above: Performed By: #### A 1C #### [facility] [address] [address] [address] Bebeto Alvarado MONO # 0.4 103/ul Normal 0.3-0.8 [facility] Comment on above: Performed By: #### A 1C #### [facility] [address] [place] [address] Dr. Bebeto Alvarado Monocytes/100 WBC (Bld) 5.7 % Normal 1.7-12.0 [facility] Comment on above: Performed By: #### A 1C #### [facility] [address] [place] [address] Dr. Bebeto Alvarado NEUT # 3.8 103/ul Normal 1.4-6.5 [facility] Comment on above: Performed By: #### A 1C #### [facility] [address] [place] [address] Dr. Bebeto Alvarado Neutrophils/100 WBC (Bld) 60.1 % Normal 43.0-75.0 [facility] Comment on above: Performed By: #### A 1C #### [facility] [address] [place] [address] Dr. Bebeto Alvarado Platelet mean volume (Bld) [Entitic vol] 11.0 fL Normal 9.5-13.5 [facility] Comment on above: Performed By: #### A 1C #### [facility] [address] [place] [address] Dr. Bebeto Alvarado PLT 264 103/ul Normal 150-450 [facility] Comment on above: Performed By: #### A 1C #### [facility] [address] [place] [address] Dr. Bebeto Alvarado RBC 4.47 106/ul Normal 4.20-5.40 [facility] Comment on above: Performed By: #### A 1C #### [facility] [address] [place] [address] Dr. Bebeto Alvarado WBC 6.3 103/ul Normal 4.0-11.0 [facility] Comment on above: Performed By: #### A 1C #### [facility] [address] [address] [address] Bebeto Alvarado GLYCOHEMOGLOBIN A1Con 2021 ADA RECOMMENDATION SEE BELOW Normal [facility] Comment on above: Result Comment: ADA RECOMMENDED LIMIT 4.0 - 6.0 ADA THERAPEUTIC TARGET < 7.0 ACTION SUGGESTED > 7.0 Performed By: #### A 1C #### [facility] [address] [address] [address] Bebeto Alvarado Glucose [Mass/Vol] 105 mg/dL Normal [facility] Comment on above: Performed By: #### A 1C #### [facility] [address] [address] [address] Bebeto Alvarado HbA1c (Bld) [Mass fraction] 5.3 % Normal 4.5-6.2 [facility] Comment on above: Performed By: #### A 1C #### [facility] [address] [place] [address] Dr. Bebeto Alvarado IRONon 11-21-2021 Iron [Mass/Vol] 59.0 ug/dL Normal 50.0-170.[address] [facility] Comment on above: Performed By: #### A 1C #### [facility] [address] [place] [address] Dr. Bebeto Alvaardo LIPID PROFILEon 11-21-2021 CHOL-HDL RATIO NORM SEE BELOW Normal [facility] Comment on above: Result Comment: 3.3 - 4.4 LOW RISK 4.4 - 7.1 AVERAGE RISK 7.1 - 11.0 MODERATE RISK >11.0 HIGH RISK Performed By: #### C MP, LIPID #### [facility] [address] [place] [address] Dr. Bebeto Alvarado Cholesterol [Mass/Vol] 139 mg/dL Normal <=200 [facility] Comment on above: Performed By: #### C MP, LIPID #### [facility] [address] [place] [address] Dr. Bebeto Alvarado Cholesterol in HDL [Mass/Vol] 35 mg/dL Critically low 40-60 [facility] Comment on above: Performed By: #### C MP, LIPID #### [facility] [address] [address] [address] Bebeto Alvarado Cholesterol in LDL [Mass/Vol] 69.6 mg/dL Normal [facility] Comment on above: Performed By: #### C MP, LIPID #### [facility] [address] [address] [address] Bebeto Alvarado Cholesterol.total/Chol esterol in HDL [Mass ratio] 4.0 {ratio} Normal [facility] Comment on above: Performed By: #### C MP, LIPID #### [facility] [address] [address] [address] Bebeto Alvarado HDL NORMAL > or = 60 mg/dl - LO W CARDIOVASCULAR RISK <40 mg/dl - HIGH CARDIOVASCULAR RISK Normal [facility] Comment on above: Performed By: #### C MP, LIPID #### [facility] [address] [place] [address] Dr. Bebeto Alvarado LDL CALC NORMAL SEE BELOW Normal [facility] Comment on above: Result Comment: <100 mg/dl OPTIMAL 100 - 129 mg/dl NEAR OR ABOVE OPTIMAL 130 - 159 mg/dl BORDERLINE HIGH 160 - 189 mg/dl HIGH >190 mg/dl VERY HIGH Performed By: #### C MP, LIPID #### [facility] [address] [place] [address] Dr. Bebeto Alvarado Triglyceride [Mass/Vol] 172 mg/dL Critically high <=150 [facility] Comment on above: Performed By: #### C MP, LIPID #### [facility] [address] [place] [address] Dr. Bebeto Alvarado VLDL CALC 34.4 mg/dL Normal [facility] Comment on above: Performed By: #### C MP, LIPID #### [facility] [address] [address] [address] Bebeto Alvarado PROF 14(COMP METB)on 022 Albumin [Mass/Vol] 3.8 g/dL Normal 3.4-5.0 [facility] Comment on above: Performed By: #### C MP, LIPID #### [facility] [address] [place] [address] Dr. Bebeto Alvarado Albumin/Globulin [Mass ratio] 1.1 {ratio} Normal [facility] Comment on above: Performed By: #### C MP, LIPID #### [facility] [address] [place] [address] Dr. Bebeto Alvarado ALP [Catalytic activity/Vol] 96 U/L Normal 46-116 [facility] [facility] Comment on above: Performed By: #### C MP, LIPID #### [facility] [address] [place] [address] Dr. Bebeto Alvarado ALT [Catalytic activity/Vol] 25 U/L Normal 14-59 [facility] Comment on above: Performed By: #### C MP, LIPID #### [facility] [address] [place] [address] Dr. Bebeto Alvarado Anion gap [Moles/Vol] 11.8 mmol/L Normal [facility] Comment on above: Performed By: #### C MP, LIPID #### [facility] [address] [place] [address] Dr. Bebeto Alvarado AST [Catalytic activity/Vol] 20 U/L Normal 15-37 [facility] Comment on above: Performed By: #### C MP, LIPID #### [facility] [address] [place] [address] Dr. Bebeto Alvarado Bilirubin [Mass/Vol] 0.4 mg/dL Normal 0.2-1.0 [facility] Comment on above: Performed By: #### C MP, LIPID #### [facility] [address] [place] [address] Dr. Bebeto Alvarado Calcium [Mass/Vol] 8.8 mg/dL Normal 8.5-10.1 [facility] Comment on above: Performed By: #### C MP, LIPID #### [facility] [address] [place] [address] Dr. Bebeto Alvarado Chloride [Moles/Vol] 106 mmol/L Normal 98-107 [facility] Comment on above: Performed By: #### C MP, LIPID #### [facility] [address] [place] [address] Dr. Bebeto Alvarado CO2 [Moles/Vol] 27.0 mmol/L Normal 21.0-32.0 [facility] Comment on above: Performed By: #### C MP, LIPID #### [facility] [address] [address] [address] Bebeto Alvarado Creatinine [Mass/Vol] 0.97 mg/dL Normal 0.55-1.02 [facility] Comment on above: Performed By: #### C MP, LIPID #### [facility] [address] [address] [address] Bebeto Alvarado EGFR-AF SWAZI >60 Normal >=60 [facility] Comment on above: Performed By: #### C MP, LIPID #### [facility] [address] [address] [address] Bebeto Alvarado EGFR-NON AF SWAZI 59 mL/min/1.73m2 Critically low >=60 [facility] Comment on above: Performed By: #### C MP, LIPID #### [facility] [address] [place] [address] Dr. Bebeto Alvarado Globulin (S) [Mass/Vol] 3.4 g/dL Normal [facility] Comment on above: Performed By: #### C MP, LIPID #### [facility] [address] [place] [address] Dr. Bebeto Alvarado Glucose [Mass/Vol] 103 mg/dL Normal 74-106 [facility] Comment on above: Performed By: #### C MP, LIPID #### [facility] [address] [address] [address] Bebeto Alvarado Potassium [Moles/Vol] 3.8 mmol/L Normal 3.5-5.1 [facility] Comment on above: Performed By: #### C MP, LIPID #### [facility] [address] [address] [address] Bebeto Alvarado Protein [Mass/Vol] 7.2 g/dL Normal 6.4-8.2 [facility] Comment on above: Performed By: #### C MP, LIPID #### [facility] [address] [address] [address] Bebeto Alvarado Sodium [Moles/Vol] 141 mmol/L Normal 136-145 [facility] Comment on above: Performed By: #### C MP, LIPID #### [facility] [address] [place] [address] Dr. Bebeto Alvarado Urea nitrogen [Mass/Vol] 11.0 mg/dL Normal 7.0-18.0 [facility] Comment on above: Performed By: #### C MP, LIPID #### [facility] [address] [place] [address] Dr. Bebeto Alvarado Urea nitrogen/Creatinine [Mass ratio] 11.3 mg/mg Normal [facility] Comment on above: Performed By: #### C MP, LIPID #### [facility] [address] [place] [address] Dr. Bebeto Alvaraod URIC ACID SERUMon 11-21-2021 Urate [Mass/Vol] 7.3 mg/dL Critically high 2.6-6.0 [facility] Comment on above: Performed By: #### A 1C #### [facility] [address] [place] [address] Dr. Bebeto Alvarado VITAMIN B12on 11-21-2021 Cobalamin (Vitamin B12) [Mass/Vol] 2123.0 pg/mL Critically high 193.0-986.0 [facility] Comment on above: Performed By: #### A 1C #### [facility] [address] [place] [address] Dr. Bebeto Alvarado Physician Referralon 022 Physician Referral [phone] [id number] Normal [facility] KNEE RIGHT 1 OR 2 VWSon 11-0 KNEE RIGHT 1 OR 2 VWS [facility] Department of Radiology [address] [place] [phone] ======== Patient Name: MICHELLE BE : [...] Electronically signed by:Debra Del Cid. Transcribed by: [email or web address], User Resident: Electronically Signed by: DEBRA DEL CID @ 02/08/2019 11:16 AM Normal [facility] Comment on above: [...] VWSon KNEE RIGHT 1 OR 2 VWS [facility]iology [address] [place] [phone] ======== Patient Name: MICHELLE BE : [...] complications. Electronically signed by:Tomasz Stoll. Transcribed by: [email or web address], User Resident: Electronically Signed by: TOMASZ STOLL @ 12/07/2018 11:14 AM Normal [facility] Comment on above: Order Comment: , Mabel ws (X-RAY, KNEE): Radiologic Protocol , Weight Bearing?: N , With or Without Brace/Cast/Collar: With , Views (X-RAY, KNEE): Radiologic Protocol , Weight Bearing?: N , With or Without Brace/Cast/Collar: With , , , Ordering Provider - AHSAN BINGHAM PA-C , KNEE RIGHT 1 OR 2 [facility] 0 KNEE RIGHT [address] [facility] Department of Radiology [address] [place] [phone] ======== Patient Name: MICHELLE BE : [...] osteoarthritis Electronically signed by:Anup Ellison. Transcribed by: [email or web address], User Resident: Electronically Signed by: ANUP ELLISON @ 10/06/2018 02:48 PM Normal [facility] Comment on above: Order Comment: , Mabel ws (X-RAY, KNEE): Radiologic Protocol , Weight Bearing?: N , With or Without Brace/Cast/Collar: With , Views (X-RAY, KNEE): Radiologic Protocol , Weight Bearing?: N , With or Without Brace/Cast/Collar: With , , , Ordering Provider - AHSAN BINGHAM PA-C , KNEE RIGHT 1 OR 2 [facility] 08-05 KNEE RIGHT 1 OR 2 VWS [facility] Department of Radiology [address] [place] [phone] ======== Patient Name: MICHELLE BE : [...] effusion Electronically signed by:Anup Ellison. Transcribed by: [email or web address], User Resident: Electronically Signed by: ANUP ELLISON @ 08/26/2018 04:56 PM Normal [facility] Comment on above: Order Comment: , Vie ws (X-RAY, KNEE): Radiologic Protocol , Weight Bearing?: N , With or Without Brace/Cast/Collar: With , Views (X-RAY, KNEE): Radiologic Protocol , Weight Bearing?: N , With or Without Brace/Cast/Collar: With , , , Ordering Provider - AHSAN BINGHAM PA-C , KNEE RIGHT 1 OR 2 [facility] 07-06 KNEE RIGHT [address] [facility] Department of Radiology [address] [place] [phone] ======== Patient Name: MICHELLE BE : 1960 Sex: F Age: Race: White Pt. Location: Patient Status: Ordered Date: 07/29/2018 2:10:00 PM Completed Date: 07/29/2018 02:12 PM Requesting Provider: AHSAN BINGHAM Attending Provider: Report Copy To: Signs & Symptoms: S82.001A Unsp fracture of right patella, init for clos fx I10 History: [place] Comments: , , , Ordering Provider - AHSAN BINGHAM PA-C , Exam: KNEE RIGHT 1 OR 2 [facility] ======== KNEE RIGHT 1 OR 2 [facility] 07/29/2018 2:12 PM EDT SIGNS AND [...] compartment Electronically signed by:Anup Ellison. Transcribed by: [email or web address], User Resident: Electronically Signed by: ANUP ELLISON @ 07/29/2018 03:41 PM Normal [facility] Comment on above: Order Comment: , Mabel ws (X-RAY, KNEE): Radiologic Protocol , Weight Bearing?: N , With or Without Brace/Cast/Collar: With , Views (X-RAY, KNEE): Radiologic Protocol , Weight Bearing?: N , With or Without Brace/Cast/Collar: With , , , Ordering Provider - AHSAN BINGHAM PA-C , KNEE RIGHT 3 [facility] 9 KNEE RIGHT 3 [facility] Department of Radiology [address] [place] [phone] ======== Patient Name: MICHELLE BE : 1960 Sex: F Age: Race: White Pt. Location: Patient Status: Ordered Date: 07/15/2018 8:45:00 AM Completed Date: 07/15/2018 08:47 AM Requesting Provider: AHSAN BINGHAM Attending Provider: Report Copy To: Signs & Symptoms: S82.001A Unsp fracture of right patella, init for clos fx I10 History: [place] Comments: , , , Ordering Provider - AHSAN BINGHAM PA-C , Exam: KNEE RIGHT 3 [facility] ======== KNEE RIGHT 3 S 07/15/2018 [...] knee Electronically signed by:Anup Ellison. Transcribed by: [email or web address], User Resident: Electronically Signed by: ANUP ELLISON @ 07/15/2018 03:31 PM Normal [facility] Comment on above: Order Comment: , Vie ws (X-RAY, KNEE): Radiologic Protocol , Weight Bearing?: N , With or Without Brace/Cast/Collar: With , Views (X-RAY, KNEE): Radiologic Protocol , Weight Bearing?: N , With or Without Brace/Cast/Collar: With , , , Ordering Provider - AHSAN BINGHAM PA-C , Operative Reporton 9 Operative Report MR#: [id number] [facility] Pt. Name: Michelle Be Room #: 0C [...] Duarte MD Date Trans: 07/03/2018 04:28 A/terry [id number] Normal [facility] *ANAEROBIC CULTUREon 019 *ANAEROBIC CULTURE Clinical Report: (D) Specimen/Source: SWAB/RT KNEE Collected: 07/02/2018 13:53 Status: Final Last Updated: 07/07/2018 08:02 CULT RES (Final) No Anaerobes Isolated 5 Days Normal [facility] Comment on above: Performed By: #### 3 0312 #### [address] *WOUND CULTUREon 07-02-2018 *WOUND CULTURE Clinical Report: (D) Specimen/Source: WOUND/INTRAOP SPEC Collected: 07/02/2018 13:53 Status: Final Last Updated: 07/07/2018 10:13 (1) #1 RT KNEE GRAM (Final) Rare Polys No Bacteria Seen CULT RES (Final) No Growth Day 5 Normal [facility] Comment on above: Order Comment: #1 RT KNEE Performed By: #### 3 0343 #### [address] KNEE RIGHT 1 OR 2 [facility] 06-05 KNEE RIGHT 1 OR 2 [facility] Department of Radiology [address] [place] [phone] ======== Patient Name: MICHELLE BE : [...] Electronically signed by:Debra Del Cid. Transcribed by: [email or web address], User Resident: Electronically Signed by: DEBRA DEL CID @ 07/02/2018 02:03 PM Normal [facility] Comment on above: Order Comment: ORIF VS PERCUTANEOUS FIXATION RIGHT PATELLA POC GLUCOSE LABon 07-02-2018 Glucose [Mass/Vol] 108 mg/dL High 70-100 [facility] Comment on above: Performed By: #### 8 5499 #### [facility] [address] [facility] [place] [address], [facility] APTTon 06-30-2018 aPTT Coag (Bld) [Time] 30.6 s Normal 25.0-35.0 [facility] Comment on above: Result Comment: ALL RESULTS [...] THIS PURPOSE. Performed By: #### 5 6101, 286[address] #### [facility] [address] [place] [address], [facility] BASIC METABOLIC PANELon 06-05 Calcium [Mass/Vol] 9.7 mg/dL Normal 8.6-10.3 [facility] Comment on above: Performed By: #### 0 0071 #### [facility] [address] [place] [address], [facility] Chloride [Moles/Vol] 102 mmol/L Normal 98-107 [facility] Comment on above: Performed By: #### 0 0071 #### [facility] [address] [place] [address], [place] CO2 [Moles/Vol] 28 mmol/L Normal 21-31 [facility] Comment on above: Performed By: #### 0 0071 #### [facility] [address] [place] [address], [facility] Creatinine [Mass/Vol] 1.20 mg/dL Normal 0.60-1.20 [facility] Comment on above: Performed By: #### 0 0071 #### [facility] [address] [place] [address], [place] GFR/1.73 sq M predicted among blacks MDRD (S/P/Bld) [Vol rate/Area] 56 ml/min/1.73sq m Abnormal >60 [facility] Comment on above: Performed By: #### 0 0071 #### [facility] [address] [place] [address], [place] GFR/1.73 sq M predicted among non-blacks MDRD (S/P/Bld) [Vol rate/Area] 47 ml/min/1.73sq m Abnormal >60 [facility] Comment on above: Performed By: #### 0 0071 #### [facility] [address] [place] [address], [place] Glucose [Mass/Vol] 97 mg/dL Normal 70-100 [facility] Comment on above: Performed By: #### 0 0071 #### [facility] [address] [place] [address], [place] Potassium [Moles/Vol] 4.1 mmol/L Normal 3.5-5.1 [facility] Comment on above: Performed By: #### 0 0071 #### [facility] [address] [facility] [place] [address], [facility] Sodium [Moles/Vol] 137 mmol/L Normal 136-145 [facility] Comment on above: Performed By: #### 0 0071 #### [facility] [address] [facility]. [address] Urea nitrogen [Mass/Vol] 19 mg/dL Normal 7-25 [facility] Comment on above: Performed By: #### 0 0071 #### [facility] [address] CBC W/DIFFon 06-30-2018 ABS BASOPHILS 0.1 10*3/uL Normal 0.0-0.2 [facility] Comment on above: Performed By: #### 5 010 #### [facility] [address] [facility] [place] [address], [facility] ABS IMM GRANS 0.0 10*3/uL Normal 0.0-0.2 [facility] Comment on above: Performed By: #### 5 102 #### [facility] [address] ABS NEUTROPHILS 6.4 10*3/uL Normal 1.6-7.6 [facility] Comment on above: Performed By: #### 5 102 #### [facility] [address] [place] [address], [facility] Basophils/100 WBC (Bld) 0.7 % Normal 0.0-1.0 [facility] Comment on above: Performed By: #### 5 102 #### [facility] [address] [place] [address], [facility] Eosinophils (Bld) [#/Vol] 0.2 10*3/uL Normal 0.0-0.5 [facility] Comment on above: Performed By: #### 5 0103 #### [facility] [address] [place] [address], [facility] Eosinophils/100 WBC (Bld) 1.5 % Normal 0.0-6.0 [facility] Comment on above: Performed By: #### 5 0103 #### [facility] [address] [facility] [facility] Erythrocyte distribution width (RBC) [Ratio] 14.4 % Normal 11.5-15.0 [facility] Comment on above: Performed By: #### 5 0103 #### [facility] [address] [facility] [address], [facility] Hematocrit (Bld) [Volume fraction] 40.6 % Normal 36.0-45.0 [facility] Comment on above: Performed By: #### 5 0103 #### [facility] [address] [facility] [address], [facility] Hemoglobin (Bld) [Mass/Vol] 13.3 g/dL Normal 12.0-15.0 [facility] Comment on above: Performed By: #### 5 0103 #### [facility] [address] [facility] [address], [facility] IMMATURE GRANS 0.4 % Normal 0.0-1.0 [facility] Comment on above: Performed By: #### 5 0103 #### [facility] [address] [place] [address], [facility] Lymphocytes (Bld) [#/Vol] 2.6 10*3/uL Normal 1.2-4.0 [facility] Comment on above: Performed By: #### 5 3 #### [facility] [address] [place] [id number], [facility] Lymphocytes/100 WBC (Bld) 26.5 % Normal 20.0-45.0 [facility] Comment on above: Performed By: #### 5 0103 #### [facility] [address] [place] [address], [facility] MCH (RBC) [Entitic mass] 27.4 pg Normal 27.0-33.0 [facility] Comment on above: Performed By: #### 5 0103 #### [facility] [address] [facility] [address], [facility] MCHC (RBC) [Mass/Vol] 32.8 g/dL Normal 32.0-35.0 [facility] Comment on above: Performed By: #### 5 3 #### [facility] [address] [facility]. [address] MCV (RBC) [Entitic vol] 83.5 fL Normal 82.0-98.0 [facility] Comment on above: Performed By: #### 5 0103 #### [facility] [address] [place] [address], [facility] Monocytes (Bld) [#/Vol] 0.5 10*3/uL Normal 0.1-1.0 [facility] Comment on above: Performed By: #### 5 3 #### [facility] [address] [facility] MONOS 5.0 % Normal 5.0-12.0 [facility] Comment on above: Performed By: #### 5 3 #### [facility] [address] [facility] Neutrophils/100 WBC (Bld) 65.9 % Normal 40.0-72.0 [facility] Comment on above: Performed By: #### 5 3 #### [facility] [address] [place] [address], [facility] Nucleated RBC/100 WBC (Bld) [Ratio] 0 % Normal 0-0 [facility] Comment on above: Performed By: #### 5 0103 #### [facility] [address] [facility] [place] [address], [facility] PLAT CNT 290 10*3/uL Normal 150-400 [facility] Comment on above: Performed By: #### 5 0103 #### [facility] [address] [facility] [place] [address], [facility] RBC (Bld) [#/Vol] 4.86 10*6/uL Normal 3.80-5.00 [facility] Comment on above: Performed By: #### 5 0103 #### [facility] [address] [facility] [place] [address], [facility] WBC (Bld) [#/Vol] 9.68 10*3/uL Normal 4.00-10.60 [facility] Comment on above: Performed By: #### 5 0103 #### [facility] [address] KNEE RIGHT 1 OR 2 VWSon 06-05 KNEE RIGHT 1 OR 2 VWS [facility] Department of Radiology [address] [place] [phone] ======== Patient Name: MICHELLE BE : 1960 Sex: F Age: Race: White Pt. 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, 7thD I10 History: [place] Comments: , Views (X-RAY, KNEE): Radiologic Protocol [...] Electronically signed by:Debra Del Cid. Transcribed by: [email or web address], User Resident: Electronically Signed by: DEBRA DEL CID @ 06/30/2018 11:52 AM [facility] Comment on above: Order Comment: , Mabel ws (X-RAY, KNEE): Radiologic Protocol , Weight Bearing?: N , With or Without Brace/Cast/Collar: With , Views (X-RAY, KNEE): Radiologic Protocol , Weight Bearing?: N , With or Without Brace/Cast/Collar: With , , , Ordering Provider - AHSAN BINGHAM PA-C , PROTHROMBIN TIMEon 9 INR Coag (PPP) [Relative time] 0.98 {INR} Normal 0.91-1.16 [facility] Comment on above: Result Comment: ACCC P [...] CHEST 1995;108:231S-246S. Performed By: #### 5 6101, [address] #### [address] PT Coag (PPP) [Time] 13.0 s Normal 12.3-14.8 [facility] Comment on above: Result Comment: ALL RESULTS MUST BE INTERPRETED WITH RESPECT TO BLOOD DRAWING ARTIFACT OR DILUTION ERROR OF ANTICOAGULANT AT THE TIME OF SAMPLING. Performed By: #### 5 6101, [address] #### [address] KNEE RIGHT 3 VWSon 9 KNEE RIGHT 3 VWS [facility] Department of Radiology [address] [place] [phone] ======== Patient Name: MICHELLE BE : [...] ZHANG PA-C , Exam: KNEE RIGHT 3 [facility] ======== KNEE RIGHT 3 S 06/15/2018 [...] effusion Electronically signed by:Anup Ellison. Transcribed by: [email or web address], User Resident: Electronically Signed by: ANUP ELLISON @ 06/15/2018 03:50 PM Normal [facility] Comment on above: Order Comment: , Isaiah ght Bearing?: Y , Weight Bearing?: Y , , , Ordering Mariela - AMPARO ZHANG PA-C , Vital Signs Date Time Vital Sign Value Performing Clinician Facility 05-18-2023 16:30-0500 Body height 162.6 cm Adelaida Sheyla SURGERY NURSE Work Phone: [facility] 05-18-2023 16:30-0500 Body mass index (BMI) [Ratio] 47.89 kg/m2 Adelaida Sheyla SURGERY NURSE Work Phone: [facility] 05-18-2023 16:30-0500 Body temperature 97.3 [degF] Adelaida Sheyla SURGERY NURSE Work Phone: [facility] 05-18-2023 16:30-0500 Body weight 126.55 kg Adelaida Sheyla SURGERY NURSE Work Phone: [facility] 05-18-2023 16:30-0500 Diastolic blood pressure 80 mm[Hg] Adelaida Sheyla SURGERY NURSE Work Phone: [facility] 05-18-2023 16:30-0500 Heart rate 76 /min Adelaida Carrion SURGERY NURSE Work Phone: [facility] 05-18-2023 16:30-0500 Respiratory rate 19 /min Adelaida Carrion SURGERY NURSE Work Phone: [facility] 05-18-2023 16:30-0500 SaO2% (BldA) [Mass fraction] 97 % Adelaida Carrion SURGERY NURSE Work Phone: [facility] 05-18-2023 16:30-0500 Systolic blood pressure 134 mm[Hg] Adelaida Aichholz SURGERY NURSE Work Phone: [facility] 03-23-2023 12:10-0500 Diastolic blood pressure 98 [...] Body height 162.56 cm Rosemary Kirkland Other [employer] Other 12-19-2022 14:55-0400 Body mass index (BMI) [Ratio] 47.85 kg/m2 Rosemary Kirkland Other [employer] Other 12-19-2022 14:55-0400 Body temperature 97.8 [degF] Rosemary Kirkland Other [employer] Other 12-19-2022 14:55-0400 Body weight 126.46 kg Rosemary Kirkland Other [employer] Other 12-19-2022 14:55-0400 Respiratory rate 20 /min Rosemary Kirkland Other [employer] Other 12-19-2022 14:55-0400 SaO2% (BldA) [Mass fraction] 95 % Rosemary Kirkland Other [employer] [facility] [employer] Other 11-20-2022 13:12-0400 Body temperature 97.7 [degF] [...] Facility Start: 07-23-2023 End: 07-23-2023 ambulatory ADELAIDA AICHHOLZ Not Available Start: 07-07-2023 End: 07-07-2023 ambulatory ADELAIDA AICHHOLZ Not Available Start: 06-03-2023 ambulatory Eduardo Acevedo acility:[facility] Start: 05-22-2023 End: 05-22-2023 ambulatory ASHLEIGH HINES Not Available Start: 05-21-2023 Refill Adelaida Carrion SURGERY NURSE Work Phone: [facility] Comment on above: Acute cystitis with hematuria (Primary Dx) Start: 05-18-2023 End: 05-18-2023 ambulatory ADELAIDA AICHHOLZ Not Available Start: 05-18-2023 End: 05-18-2023 Office outpatient visit 25 minutes Adelaida Carrion SURGERY NURSE Work Phone: [facility] Comment on above: Encounter for annual wellness visit (AWV) in Medicare patient (Primary Dx); OSMANY (obstructive sleep apnea); Chronic pain disorder; Gastroesophageal reflux disease, unspecified whether esophagitis present; Overactive bladder; Lower extremity edema; Pre-diabetes; Morbid obesity (CMS/HCC); Yeast infection of the skin; Tobacco dependence; Mood disorder (CMS/[facility]); Primary hypertension ([facility]); Left hip pain; Open wound of anterior abdominal wall, initial encounter Start: 05-18-2023 Bamboo flowsheet Adelaida Carrion SURGERY NURSE Work Phone: [facility] Start: 05-18-2023 Bamboo flowsheet Adelaida Carrion SURGERY NURSE Work Phone: [facility] Start: 05-18-2023 End: 05-18-2023 Patient encounter procedure Adelaida Carrion SURGERY NURSE Work Phone: [facility] Start: 03-25-2023 End: 03-25-2023 ambulatory ADELAIDA AICHHOLZ Not Available Start: 03-23-2023 End: 03-23-2023 ambulatory Jace Graham Facility:[facility] Start: 03-23-2023 End: 03-23-2023 Admission to same day surgery center Adelaida Carrion Work Phone: [facility] Work Phone: Start: 03-23-2023 End: 03-23-2023 ambulatory Adelaida Carrion Work Phone: [facility] Work Phone: Start: 03-11-2023 End: 03-11-2023 ambulatory KALLI INTERIANO Not Available Start: 02-20-2023 End: 02-20-2023 ambulatory ASHLEIGH HINES Not Available Start: 02-12-2023 End: 02-12-2023 ambulatory Jace Graham Other [employer] Other Start: 02-12-2023 Telephone encounter Jace Haney Conservation Enforcement Officer Start: 12-19-2022 End: 12-19-2022 ambulatory Rosemary Kirkland Other [employer] Other Start: 12-19-2022 Office outpatient ne w 10 minutes Rosemary Kirkland [facility] [place] Start: 11-17-2022 End: 11-20-2022 Evaluation and management of inpatient Eduardo Aleshia Facility:[facility] Start: 11-17-2022 End: 11-20-2022 Evaluation and management of inpatient Adelaida Carrion Work Phone: [facility] Work Phone: Start: 09-04-2022 ambulatory ARIAN Banegas Facili ty:H1 Start: 08-26-2022 ambulatory NARENDRANATH LAKSHMIPATHY . 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 Facility:H1 Start: 07-11-2022 ambulatory PAULOSTEPHEN BELA . Facility:H1 Start: 06-26-2022 End: 06-27-2022 ambulatory [...] Start: 01-01-2022 End: 01-02-2022 ambulatory BRIDGETTE Ca [facility] Facility:H1 Start: 12-16-2021 End: 12-16-2021 [...] End: 07-03-2018 Patient encounter procedure SUKI ESCALANTE Facility:[facility] Procedures Date Procedure Procedure Detail Performing Clinician Start: 03-23-2023 Screening colonoscopy L oneal Carrion Work Phone: Start: 03-23-2023 Colonoscopy Adelaida Jayden ramos SURGERY NURSE Work Phone: Start: 09-15-2022 Mammography Adelaida Jayden ramos SURGERY NURSE Work Phone: Start: 08-28-2022 Microscopic observat ion [Identifier] in Cervix by Cyto stain Adelaida Carrion SURGERY NURSE Work Phone: Start: 07-02-2018 ANESTH KNEE AREA SURGERY CHAPARRITA HENDRICKS Start: 07-02-2018 REMOVAL OF SUPPORT IMPLANT SUKI EBRAHEIM Start: 07-02-2018 TREAT KNEECAP FRACTURE SUKI EBRAHEIM Plan of Treatment Date Care Activity Detail Author Start: 03-23-2033 Screening for malignant neoplasm of colon [facility] Start: 08-28-2025 Screening for malignant neoplasm of cervix [facility] Start: 05-18-2024 Medicare Annual Wellness (AWV) Medicare Annual Wellness (AWV) [facility] Start: 09-16-2023 Screening for malignant neoplasm of breast Mammogram [facility] Start: 08-17-2023 End: 08-17-2023 Patient encounter procedure 08/17/2023 9:20 AM EDT Office Visit [facility] [address] [place] [address] Adelaida Carrion, BRIANA [address] [place] [address] [facility] Start: 05-22-2023 End: 05-22-2023 Patient encounter procedure 05/22/2023 8:45 AM EST Office Visit [facility] [address] [facility] [address] [place] [place] [address] Ashleigh Hines PA [address] [facility] [address] [place] [address] [facility] Start: 05-18-2023 End: 05-18-2023 Patient encounter procedure 05/18/2023 4:30 PM EST Office Visit [facility] [address] [place] [id number] Adelaida Carrion, BRIANA [address] [place] [phone] Arrived [facility] Comment on above: Arrived Start: 05-18-2023 End: 05-18-2024 XR Hip - left 3 Views XR hip left 2 or 3 views Imaging Routine Left hip pain Expected: 05/18/2023 (Approximate), Expires: 05/18/2024 [facility] Work Phone: Comment on above: Expected: 05/18/2023 (Approximate), Expires: 05/18/2024 Start: 03-23-2023 [facility] Start: 11-20-2022 [facility] Start: 11-18-2022 Referral to clinical assessment analyst [facility] Start: 11-17-2022 Hospital admission [facility] Start: 11-17-2022 [facility] Start: 12-06-1991 Screening for malignant neoplasm of cervix HPV/Cotest [facility] Start: 1960 Medicare Annual Wellness (AWV) Medicare Annual Wellness (AWV) [facility] Start: 1960 Screening for malignant neoplasm of colon [facility] Patient Education [facility] Work Phone: Patient referral [facility] Work Phone: [facility] Immunizations Immunization Date Immunization Notes Care Provider Fa cility 02-13-2023 influenza, injectabl e, quadrivalent, preservative free Adelaida Sheyla SURGERY NURSE Work Phone: [facility] 02-13-2023 SARS-COV-2 (COVID-19 ) vaccine, mRNA, spike protein, LNP, PF, 50 mcg/0.5 mL Adelaida Sheyla SURGERY NURSE Work Phone: [facility] 02-19-2022 diphtheria, tetanus toxoids and pertussis vaccine Adelaida Sheyla SURGERY NURSE Work Phone: [facility] 03-02-2021 Moderna SARS-CoV-2 Vaccination Adelaida Carrion SURGERY NURSE Work Phone: [facility] 08-24-2020 Moderna SARS-CoV-2 Vaccination Adelaidamyrna Iglesiasz SURGERY NURSE Work Phone: [facility] 07-27-2020 Moderna SARS-CoV-2 Vaccination Adelaida Sheyla SURGERY NURSE Work Phone: [facility] 05-28-2018 influenza, injectabl e, quadrivalent, preservative free Adelaida Carrion Work Phone: [facility] Payers Date Payer Category Payer Medicare [id number] 2022 Private Health Insurance [id number] 2022 Self-pay [id number] 2022 Medicare [employer] MEDICARE REPLACEMENT [id number] 2022-Present [address] [address] [place] [address] [id number] 2008 Unknown [id number] 1961 Unknown [id number] 2.16.840.1.331456.3.579.2 .647 1961 Unknown [id number] 2.16.840.1.761926.3.579.2 .593 1961 Unknown [id number] 2.16.840.1.526977.3.579.2 .593 1961 Unknown [id number] 2.16.840.1.958698.3.579.2 .593 1961 Unknown [id number] 2.16.840.1.580426.3.579.2 .593 1961 Unknown [id number] 2.16.840.1.314492.3.579.2 .593 1961 Unknown [id number] 2.16.840.1.641228.3.579.2 .593 1961 Unknown [id number] 2.16.840.1.792763.3.579.2 .593 1961 Unknown [id number] 2.16.840.1.386426.3.579.2 .593 1961 Unknown [id number] 2.16.840.1.054389.3.579.2 .593 1961 Unknown [id number] 2.16.840.1.730378.3.579.2 .593 1961 Unknown [id number] 2.16.840.1.995023.3.579.2 .593 1961 Unknown [id number] 2.16.840.1.747434.3.579.2 .593 1961 Unknown [id number] 2.16.840.1.516982.3.579.2 .593 1961 Unknown [id number] 2.16.840.1.163404.3.579.2 .593 1961 Unknown [id number] 2.16.840.1.417652.3.579.2 .593 1961 Unknown [id number] 2.16.840.1.659664.3.579.2 .593 1961 Unknown [id number] 2.16.840.1.413396.3.579.2 .593 1961 Unknown [id number] 2.16.840.1.067039.3.579.2 .593 1961 Unknown [id number] 2.16.840.1.677289.3.579.2 .593 1961 Unknown [id number] 2.16.840.1.981117.3.579.2 .593 1961 Unknown [id number] 2.16.840.1.905562.3.579.2 .593 1961 Unknown [id number] 2.16.840.1.866917.3.579.2 .593 1961 Unknown [id number] 2.16.840.1.079932.3.579.2 .593 1961 Unknown [id number] 2.16.840.1.785717.3.579.2 .593 1961 Unknown [id number] 2.16.840.1.662293.3.579.2 .1259 1961 Unknown [id number] 2.16.840.1.391555.3.579.2 .1259 1961 Unknown [id number] 2.16.840.1.370414.3.579.2 .1259 1961 Unknown [id number] 2.16.840.1.355549.3.579.2 .1259 1961 Unknown [id number] 2.16.840.1.100487.3.579.2 .1259 1961 Unknown [id number] 2.16.840.1.882581.3.579.2 .1259 1961 Unknown [id number] 2.16.840.1.593386.3.579.2 .1259 1959 Medicare [id number] 1959 Unknown [id number] Unknown [id number] 2.16.840.1.291566.3.579.2 .531 Unknown [id number] 2.16.840.1.506092.3.579.2 .531 Unknown [id number] 2.16.840.1.955690.3.579.2 .531 Social History Date Type Detail Facility Start: 11-18-2022 End: 02-09-2023 Tobacco smoking status NHIS Ex-smoker (finding) [facility] Start: 1960 Sex Assigned At Female [facility] Start: 03-25-2023 End: 05-18-2023 Sex Assigned At [facility] End: 04-06-2016 History of tobacco use Current smoker [facility] End: 04-06-2016 History of tobacco use Cigarette Smoker [facility] Start: 02-09-2023 End: 05-18-2023 Cigarettes smoked current (pack per day) - Reported 1 [facility] Start: 02-09-2023 Tobacco use and exposure Smokeless tobacco non-user [facility] Start: 05-18-2023 Alcohol intake Lifetime non-drinker (finding) [facility] Start: 11-13-2022 Alcohol Comment caffeine intake: 1-2 cups per day. [facility] Start: 10-01-2022 Gender identity Identifies as female gender (finding) [facility] Start: 10-01-2022 Sexual orientation Heterosexual (finding) [...] [OSQ] Very much [facility] (I/We) worried kimmie er (my/our) food would run out before [...] Facility 11-20-2022 Functional status Patient at Baseline [facility] Work Phone: Mental Status Date Assessment Result Facility 11-20-2022 Cognitive function Cognitive Sta tus Patient is Progressing Toward Baseline [facility] Work Phone: Clinical Notes 10-03-2021 to 05-18-2023 Adelaida Carrion NP - 05/18/2023 5:49 PM ESTAdelaida Carrion NP - 05/18/2023 5:47 PM ESTAdelaida Carrion, BRIANA - 05/18/2023 5:20 PM ESTAdleaida Carrion NP - 05/18/2023 5:17 PM EST [...] (BARIATRIC MULTIVITAMINS/IRON PO) Bariatric Multivitamins/Iron nystatin (Mycostatin) 431300 UNIT/GM powder 1 application , Topical, 2 [...] Anxiety 05/18/2023 Bipolar disorder with severe depression ([facility]) 05/18/2023 Brain vascular malformation Chronic pain disorder Colon polyps Constipation Degenerative cervical disc Degenerative lumbar disc Depression ([facility]) 05/18/2023 Diastolic dysfunction Dizziness 05/18/2023 Dysphagia Fibromyalgia Gastrocnemius equinus GERD (gastroesophageal reflux disease) Heart murmur Hematoma of right breast Hemiparesis, right ([facility]) Hemorrhoid int/external hemorrhoids Hiatal hernia Iron deficiency Left foot pain 03/25/2023 Lower extremity edema Mood disorder ([facility]) mixed mood disorder OSMANY (obstructive sleep apnea) Osteoporosis ([facility]) Overactive bladder Pre-diabetes Primary hypertension ([facility]) 03/25/2023 PTSD (post-traumatic stress disorder) ([facility]) Restless leg Right knee pain Right sided weakness S/P bariatric surgery Shingles Slurred speech Stroke ([facility]) 2018 Tenosynovitis, de Quervain Thoracic back [...] yearly and prn documented in this encounter [facility] 03-23-2023 Procedure note [facility] 12-19-2022 Evaluation note Encounter Date Diagnosis Assessment Notes Dec, Skin candidiasis (ICD-10 - B37.2) Drink plenty fluids, get plenty of rest. Continue home medications as prescribed. Take the Diflucan as prescribed until gone. Follow-up with your family physician if no improvement in 2 to 3 days [employer] Other 08-17-2023 Discharge summary Author Eduardo bautista [facility] November 20, 2022 6:38am Note Date/Time November 20, 2022 6: 38am [facility] [address] [place] [address] Discharge Summary Signed Patient: Michelle Be MR#: [id number] : 1960 Acct:[id number] Age/Sex: 61 / F Adm Date: 3 Loc: Room: [address] [place] [address]: Gaudencio Monk MD Copies to: MD Adelaida Álvarez, SURGERY NURSE-C~ Providers Date of Discharge: 11/20/22 Discharging Provider: [...] that time.? She reports moving to [place] from [place] in 2011 and was then diagnosed with bipolar disorder at [facility] in [place], where she still follows with a therapist.? Shereports that she has been with 7 therapists in the last 9 years and is currentlycompleting EMDR with her current therapist. Past hospitalizations: Her most recent hospitalization was 5 years ago [facility] in [place] for the same feeling she is experiencing [...] since 2010 due to her fibromyalgia.? [facility]. 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 (insert date/time [...] Eduardo Monk MD> 11/20/22 0638 [facility] Work Phone: 1(238) 431-327608-16-2023 Progress note Author Eduardo bautista [facility] November 19, 2022 6:25am Note Date/Time November 19, 2022 6: 25am [facility] [address] [place] [address] Psychiatry Progress Note Signed Patient: Michelle Be MR#: [id number] : 1960 Acct:[id number] Age/Sex: 61 / F Adm Date: 3 Loc: Room: [address] [place] [address] Type : ADM IN Attending Dr: Gauedncio Monk MD Copies to: ~ Date of [...] that time Documented By: Eduardo Monk MD 620 Signed By: <Electronically signed by Eduardo Monk MD> 11/19/22624 [facility] Work Phone: 1(566) 524-158008-15-2023 Progress note Author Eduardo bautista [facility] November 18, 2022 11:01am Note Date/Time November 18, 2022 10 :11am [facility] [address] [place] [address] Psychiatry Progress Note Signed Patient: Michelle Be MR#: [id number] : 1960 Acct:[id number] Age/Sex: 61 / F Adm Date: 3 Loc: 1S Room: 1X5313-5 Type : ADM IN Attending Dr: Gaudencio [...] by requesting a schedule 2 referring to [place] for pain management specifically every 4-6 hours [...] time Documented By: Eduardo Monk MD 3 [id number] Signed By: <Electronically signed by Eduardo Monk MD> 11/18/22 1101 <Electronically signed by MD DA Rangel> 11/18/22 1011 [facility] Work Phone: 1(535) 276-515408-14-2023 History and physical note Author Eduardo bautista [facility] November 17, 2022 12:48pm Note Date/Time November 17, 2022 12 :48pm [facility] [address] [place] [address] Psychiatry H&P Signed Patient: Michelle Be MR#: [id number] : 1960 Acct:[id number] Age/Sex: 61 / F Adm Date: 3 Loc: 1S Room: 8B4072-8 Type: ADM IN Attending Dr: Gaudencio Monk [...] that time. She reports moving to [place] from [place] in 2011 and was then diagnosed with bipolar disorder at [facility] in [place], where she still follows with a therapist. Shereports that she has been with 7 therapists in the last 9 years and is currentlycompleting EMDR with her current therapist. Past hospitalizations: Her most recent hospitalization was 5 years ago [facility] for the same feeling she is experiencing [...] worked since 2010 due to her fibromyalgia. [facility]. Relationships: Reports having people [...] equal bilaterally. CN XII: Tongue protrusion midline [facility] Medical History (Updated 11/17/22 @ 10:42 [...] signed by Eduardo Monk MD> 11/17/22 1248 [facility] Work Phone: 1(181) 120-942303-23-2023 NoteCONSULTATION CONSULTATION DATE: 06/26/2022 To: Nurse Sheyla [...] injection under fluoroscopic guidance.[facility] [id number] NotePROCEDURE: XR SHOULDER RT 2V or > [...] CLEMENTS Date: 2022-05-09 09:21[facility] [id number] NotePROCEDURE: XR WRIST LT MIN 3 V [...] authenticated by: KINGSLEY CLEMENTS Date: 2022-04-28 13:31[facility] [id number] NoteCONSULTATION CONSULTATION DATE: 04/03/2022 HISTORY OF PRESENT [...] months, unless otherwise indicated.[facility] [id number] NoteCONSULTATION CONSULTATION DATE: 01/02/2022 This is a [...] prescription was sent by Dr. Macedo to [facility] in [place] for the compounded cream. She needs a [...] time unless otherwise indicated.[facility] HospitalJmsdziwv79-04-1160 NotePROCEDURE: XR ANKLE RT MIN 3 VIEWS, [...] Electronically authenticated by: KINGSLEY CLEMENTS Date: 2022-01-01 13:11[facility]09-28-2022 NotePROCEDURE: XR ANKLE RT MIN 3 VIEWS, [...] Electronically authenticated by: KINGSLEY CLEMENTS Date: 2022-01-01 13:11[facility]08-18-2022 NotePROCEDURE: XR FOOT RT MIN 3 VIEWS HISTORY: Pain in right foot , chronic COMPARISON: XR foot right 2020 FINDINGS: BONES:No fracture, dislocation, bone lesion. Small calcaneal degenerative enthesophytes. SOFT TISSUES:No visible soft tissue swelling. EFFUSION:None visible. OTHER: Negative. IMPRESSION: 1. No acute bone abnormality or significant degenerative joint disease. Electronically authenticated by: KINGSLEY CLEMENTS Date: 2021-11-21 16:13[facility]06-30-2022 NoteCONSULTATION CONSULTATION DATE: 10/03/2021 This is a [...] agrees with the plan of care. [facility] Signed and Approved by: ZELDA MCDANIEL . 10/10/2021 10:22:00[facility] Diagnosis Onset Date Resolution Status Allergies acute Bipolar 2 disorder acute Hypertension acute Morbid obesity with BMI of 45.0-49.9, adult acute OSMANY (obstructive sleep apnea) acute Restless legs syndrome acute [facility] Work Phone: Evaluation noteNo InformationNort [employer] Other Evaluation noteNo assessment information available [facility] Work Phone: Evaluation note* Diagnosis [...] (CMS/HCC) Unspecified episodic mood disorder Primary hypertension ([facility]/HCC) Unspecified essential hypertension Left hip pain Pain in joint, pelvic region and thigh Open wound of anterior abdominal wall, initial encounter [facility] Diagnosis Acute cystitis with hematuria- Primary documented in this encounter [facility] Author Jace Graham [facility] March 23, 2023 11:21am Note Date/Time March 23, 2023 11:21am [facility] [address] [place] [address] Gastroenterology H&P Signed Patient: Michelle Be MR#: [id number] : 1960 Acct:[id number] Age/Sex: 62 / F Adm Date: 3 Loc: Room: Type: [facility] Attending Dr: Jace Graham MD [...] signed by Jace Graham MD> 03/23/23 1121 [facility] Work Phone: History general Narrative [...] see above surg Hospitalization History stroke 2018 [employer] Other Hospital Discharge instructions Additional Instructions Regular Diet No Activity [facility]ions[facility] Work Phone: Hospital Discharge instructions [...] years. -Follow up with PCP. -Office number [phone].[facility] Work Phone: Summary Purpose Family [...] and content) DATE CREATED AUTHOR 02/18/2019 [facility] DATE CREATED AUTHOR AUTHOR'S ORGANIZ ATION 11/15/2021 [facility] DATE CREATED AUTHOR AUTHOR'S ORGANIZ ATION 08/16/2022 [facility] DATE CREATED AUTHOR AUTHOR'S ORGANIZ ATION 07/24/2023 [facility] EPIC DATE CREATED AUTHOR AUTHOR'S ORGANIZ ATION 08/03/2023 [facility] Care Teams (unrecognized sec tion and content) Team Status: Active Member Role Status Dates Adelaida Hehhollily Primary Care Provider Active Team Status: Inactive Member Role Status Dates Adelaida Mcnair [facility] Primary Care Provider Active Gaudencio Monk MD Admit Provider, Attending Pr ovider Active Andreina Vieira , JOHANN Other Provider Active Camilla Pina , JOHANN Other Provider Active Ruchi Hurtado , JOHANN Other Provider Active Lisa Crooks , JOHANN Other Provider Active Tash Mejias , JOHANN Other Provider Active Elzbieta Kim RN Other Provider Active Walker Pringle MD Other Provider Active Adelaida Marsh , [employer] DOCENT Other Provider Active Jessica Murillo , DO [...] MD Other Provider Active Joellen Le , SURGERY NURSE-C Other Provider Active Severo Yancey MD Other Provider Active Rao Webber MD Other Provider Active Yuan Shi MD Other Provider Active Delroy Ramirez MD Other Provider Active Berta Comer , DO Other Provider Active Negrito Ruiz , DO Other Provider Active Lacho Singh , DO Other Provider Active Rachana Hobson [employer] Other Provider Active Rob Lake , DO Other Provider Active Jeff Alvarez MD Other Provider Active Urmila Rinaldi [employer] Other Provider Active Bina Mayberry [employer] Other Provider Active Mir Bradford MD Other Provider Active Te Da Silva MD Other Provider Active Debra Landaverde , JOHANN Other Provider Active Team Status: Inactive Member Role Status Dates Adelaida Mcnair [facility] Primary Care Provider Active Jace Graham MD Attending Provider Active [employer] Worker Relationship Specialty Start Date End Date José Luis Roberts MD [address] [place] [address] PCP - General Family Medicine 05/18/23 Adelaida Carrion NP [address] [place] [phone] Referring Physician Nurse Practitioner 10/14/22 [employer] Worker Relationship Specialty Start Date End Date José Luis Roberts MD [address] [place] [address] PCP - General Family Medicine 05/18/23 Adelaida Carrion NP [address] [place] [address] Referring Physician Nurse Practitioner 10/14/22 [employer] Worker Relationship Specialty Start Date End Date José Luis Roberts MD [address] [place] [address] PCP - General Family Medicine 05/18/23 Adelaida Carrion NP [address] [place] [address] Referring Physician Nurse Practitioner 10/14/22 REASON FOR [...] BE BASED ON THE PRIMARY CLINICAL RECORDS. [facility]. provides no warranty or guarantee of the accuracy or completeness of information in this document.
[2023-08-04 08:10] VITALS: BP 154/94; PULSE 86; TEMP 36.8; O2SAT 98
[2023-08-04 08:54] VITALS: BP 156/87; PULSE 72; O2SAT 95
[2023-08-04] MEDS: BUPIVACAINE HCL 0.25% PF 25 MG/10 ML VIAL 8 ML INJ (08:55)
--- NOTE | 2023-08-04 09:11 | W.PM.PROCNOT ---
Date of procedure: 08/04/23 Pre-op diagnosis: Bilateral lateral cutaneous ileohypogastric neuritis Post-op diagnosis: same as pre-op Procedure: Bilateral Lateral cutaneous branch Iliohypogastric nerve injection, diagnostic Performed under fluoroscopic guidance Immediate complications none Anesthesia: none Solution used for injection: In each syringe, 2 milliliters 0.25% Marcaine 2.5 mL is used for injection for each side Time out process compliant After informed consent obtained patient was brought to the procedure room placed in the prone position skin overlying the area was prepped and draped in a sterile fashion using betadine. 25 gauge spinal needle Insert over each of the target areas identified in fluoroscopy corresponding needles were advanced Under fluoroscopic guidance until the target/targets encountered , no indication of intravascular or Intraneuronal needle tip placement. Solution injected .needles removed post procedurally. patient transferred to recovery room in stable condition to be discharged home after meeting criteria Anesthesia: Local Surgeon: Tejal Montaño Condition: stable
[2023-08-04 11:34] VITALS: BP 150/85; PULSE 67; O2SAT 93
== END 2023-08-04 09:02 | disposition home or self-care (01) ==
LOC: SURGOUT 07:27
PROVIDERS: PCP Nurse Practitioner; Visit Provider Anesthesiology Pain Medicine
DX: G57.83 Other specified mononeuropathies of bilateral lower limbs (principal)
CPT/HCPCS: 64425

== ENCOUNTER 2023-08-13 09:57 | Outpatient (OUT) | payer MEDICARE, SELFPAY ==
--- NOTE | 2023-08-13 10:45 | P.CN_ITS ---
Consult Note: HPI Data of Consult Patient: known to practice within the last 3 years Requesting Physician: Bhakti Culp NP Primary Care Provider: Adelaida Carrion NP Consult Narrative Reason for consult: f/u Narrative: Nasim Ingram a pleasant 62 year old female presents for evaluation and management of chronic low back pain and left hip pain. Pain 6/10 constant pain in low back. Pain increased with standing, walking, housework, lifting, stairs, bending, and activity. Patient following with Dr Díaz for consideration of right knee replacement, pending dental clearance. Patient finds mild benefit from medication regimen. Patient recently underwent bilateral LCIH nerve block with >80% improvement in pain and functional ability 4 hours following the procedure. Patient would like to discuss RFA. cc:: CC: Bhakti Culp NP Review of Systems ROS Status of ROS 10 or more systems reviewed and unremark able except as noted in history and below Musculoskeletal Reports: back pain PFSH PFSH Medical History FH: bariatric surgery ?Z84.89 - Family history of other specified conditions (ICD-10) Upper back pain ?M54.9 - Dorsalgia, unspecified (ICD-10) Osteoarthritis ?M19.90 - Unspecified osteoarthritis, unspecified site (ICD-10) Neck pain ?M54.2 - Cervicalgia (ICD-10) Low back pain ?M54.50 - Low back pain, unspecified (ICD-10) Fibromyalgia ?M79.7 - Fibromyalgia (ICD-10) Bipolar 1 disorder ?F31.9 - Bipolar disorder, unspecified (ICD-10) Acid reflux ?K21.9 - Gastro-esophageal reflux disease without esophagitis (ICD-10) Obesity ?E66.9 - Obesity, unspecified (ICD-10) Sleep apnea ?G47.30 - Sleep apnea, unspecified (ICD-10) Heart murmur ?R01.1 - Cardiac murmur, unspecified (ICD-10) High cholesterol ?E78.00 - Pure hypercholesterolemia, unspecified (ICD-10) Hypertension ?I10 - Essential (primary) hypertension (ICD-10) Surgical History S/P dilatation and curettage ?Z98.890 - Other specified postprocedural states (ICD-10) H/O breast biopsy ?Z98.890 - Other specified postprocedural states (ICD-10) S/P ORIF (open reduction internal fixation) fracture ?Z98.890 - Other specified postprocedural states (ICD-10) ?Z87.81 - Personal history of (healed) traumatic fracture (ICD-10) Hx of laparoscopic gastric banding ?Z98.84 - Bariatric surgery status (ICD-10) History of tonsillectomy and adenoidectomy ?Z90.89 - Acquired absence of other organs (ICD-10) History of appendectomy ?Z90.49 - Acquired absence of other specified parts of digestive tract (ICD- 10) History of hemilaminectomy ?Z98.890 - Other specified postprocedural states (ICD-10) History of cholecystectomy ?Z90.49 - Acquired absence of other specified parts of digestive tract (ICD- 10) Previous section ?Z98.891 - History of uterine scar from previous surgery (ICD-10) Social History Smoking status: Former smoker Meds Home Medications and Allergies Home Medications ?Medication ?Instructions ?Recorded ?Confirmed ?Type amlodipine 10 mg tablet (Norvasc) 10 mg PO DAILY 09/10/22 08/04/23 History biotin 1 mg capsule 1 mg PO DAILY 09/10/22 08/04/23 History cariprazine 4.5 mg capsule 4.5 mg PO Q24H 09/10/22 08/04/23 History (Vraylar) cetirizine 10 mg tablet (24Hour 10 mg PO DAILY PRN allergy symptoms 09/10/22 08/04/23 History Allergy) clonazepam 1 mg tablet 1 mg 09/10/22 History duloxetine 60 mg capsule,delayed mg PO 09/10/22 History release ferrous sulfate 325 mg (65 mg 325 mg PO BID 09/10/22 08/04/23 History iron) tablet (FeroSul) gabapentin 600 mg tablet 1,200 mg PO DAILY 09/10/22 08/04/23 History (Neurontin) gabapentin 600 mg tablet 600 mg PO DAILY 09/10/22 08/04/23 History (Neurontin) losartan 50 mg tablet (Cozaar) 50 mg PO DAILY 09/10/22 08/04/23 History magnesium 200 mg tablet 400 mg PO BID 09/10/22 08/04/23 History melatonin 12 mg tablet 12 mg PO .HS PRN sleep 09/10/22 08/04/23 History omeprazole 20 mg capsule,delayed 20 mg 09/10/22 History release ropinirole 4 mg tablet mg 09/10/22 History trazodone 150 mg tablet 300 mg 09/10/22 History tizanidine 4 mg capsule 4 mg PO TID PRN muscle spasticity 02/18/23 08/04/23 History carvedilol 6.25 mg tablet 6.25 mg PO Q12H 07/11/23 08/04/23 History eszopiclone 1 mg tablet (Lunesta) mg 08/04/23 History Allergies Allergy/AdvReac Type Severity Reaction Status Date / Time levetiracetam [From [facility]] Allergy Severe Verified 08/04/23 08:05 adhesive Allergy Intermediate Blister Verified 08/04/23 08:05 Penicillins Allergy Intermediate Verified 08/04/23 08:05 tetracycline Allergy Intermediate Verified 08/04/23 08:05 milnacipran [From [facility]] AdvReac Intermediate Agitated Verified 08/04/23 08:05 prochlorperazine AdvReac Intermediate Agitated Verified 08/04/23 08:05 [From Compazine] Exam Constitutional Documenting provider has reviewed patient's vital signs: yes Common normals: no apparent distress, oriented x3, healthy appearing, alert and well nourished General appearance: cooperative Nutritional appearance: obese HENMT Common normals: normocephalic, hearing grossly normal bilaterally and moist oral mucous membranes Head and scalp: normocephalic Eye Common normals: PERRL Pupil: PERRL Neck & C-Spine Common normals: full ROM General: normal visual inspection Chest Common normals: inspection of chest normal Respiratory Common normals: normal respiratory effort, no retractions and no use of accessory muscles Back & Pelvis Lumbar spine/lower back: lumbar ROM normal and pain with ROM Sacroiliac joints: SI joint(s) abnormal Other: negative facet loading pain over bilateral PSIS, positive autumn fadir thigh thrust and gaenslens pain over bilateral LCIH nerve, left greater than right Extremity Common normals: normal to inspection and full ROM Left lower extremity: hip joint Other: no pain with external rotation and internal rotation of left hip Neuro Common normals: oriented x3, CN's II-XII intact bilaterally, moves all extremities, no focal motor deficits, no sensory deficits noted and deep tendon reflexes 2+ bilaterally Sensorium/orientation: alert Gait (neuro): normal gait Motor exam: strength 5/5 throughout and no movement abnormalities noted Psych Common normals: mental status grossly normal, thought process normal, cooperative, affect normal, speech normal and activity/motor behavior normal Speech: normal speech Thought process: normal thought process Results Additional Findings Additional findings: If on a controlled substance or opioids, I have checked an [place] report on this patient and there are no aberrancies noted in the prescribing history.??If on a controlled substance or opioid a drug screen was completed and reviewed within the last year, and if there has not been a drug screen completed we ordered one today to monitor higher risk, state monitored pain medication use. As part of providing excellent, safe, comprehensive care, the following was completed at our patient's visit: 1. A medication reconciliation and review to ensure accurate knowledge of current/active medications, including asking our patients to inform us about any [id number] medications or herbal remedies/nutritional supplements/alternative remedies. 2. A review to specifically ensure our patients have had annual screening for screening for depression, screening for tobacco use, and screening for unhealthy alcohol use. For concerning screenings had a discussion with the patient, provided patient education, and recommended follow-up with primary care provider when appropriate. If patient noted with a risk of falling, they received education on strength, gait, and balance training to prevent future risk of falling. Assessment and Plan Assessment and Plan (1) Unspecified mononeuropathy of right lower limb: (2) Unspecified mononeuropathy of left lower limb: (3) Sacroiliitis: Plan left and right LCIH nerve RFA continue current medications, tolerating well without side effects continue f/u with Dr Díaz for right knee OA and possible TKA f/u after injection
== END 2023-08-13 09:58 | disposition home or self-care (01) ==
LOC: PM 09:57
PROVIDERS: PCP Nurse Practitioner; Visit Provider Nurse Practitioner
DX: G57.83 Other specified mononeuropathies of bilateral lower limbs (principal); M46.1 Sacroiliitis, not elsewhere classified
CPT/HCPCS: G0463

== ENCOUNTER 2023-08-18 13:13 | Outpatient (OUT) | payer MEDICARE, SELFPAY ==
--- NOTE | 2023-08-18 13:15 | CT_ITS ---
[address] [address] Patient Name: MICHELLE BE MRN: [id number] date: 1960 Sex: F Assigned Patient Location: CT Current Patient Location: Accession/Order Number: [id number] Exam Date: 08/18/2023 13:28 Report Date: 08/19/2023 06:06 At the request of: EDUAR MOYER Procedure: CT lung screening low-dose EXAMINATION: CT lung screening low-dose HISTORY: Former Smoker Z87.891 COMPARISON: No relevant comparison available. TECHNIQUE: Axial, Coronal, and Sagittal images were created without the administration of IV contrast material. Dose reduction techniques were achieved by using automated exposure control and/or adjustment of mA and/or kV according to patient size and/or use of iterative reconstruction technique. FINDINGS: LUNGS: No visible pulmonary disease. PLEURA: No mass, effusion, or pneumothorax. VASCULATURE: No abnormality. DIONI: No mass or pathologic adenopathy. MEDIASTINUM: No mass or pathologic adenopathy. CARDIAC: No enlargement, pericardial thickening, or pericardial effusion. Coronary artery calcifications: Mild AORTA: No aneurysm or dissection. CHEST WALL: No mass or axillary adenopathy BONES: No bone lesion or fracture. LIMITED ABDOMEN: Prior gastric surgery. Limited images of the upper abdomen. OTHER: Negative. CT/CT lung screening low-dose IMPRESSION: 1. Lung-RADS Category 1 Negative. No nodules and definitely benign nodules. Continue annual screening with LDCT in 12 months. Electronically authenticated by: KINGSLEY CLEMENTS Date: 08/19/2023 06:06
== END 2023-08-18 13:14 | disposition home or self-care (01) ==
LOC: CT 13:13
PROVIDERS: PCP Nurse Practitioner; Visit Provider Nurse Practitioner
DX: Z87.891 Personal history of nicotine dependence (principal)
CPT/HCPCS: 71271

== ENCOUNTER 2023-08-24 08:45 | Emergency (ER) | payer MEDICARE, SELFPAY ==
--- NOTE | 2023-08-24 08:49 | CT_ITS ---
[address] [address] Patient Name: MICHELLE BE MRN: [id number] date: 1960 Sex: F Assigned Patient Location: ED.MAIN Current Patient Location: Accession/Order Number: [id number] Exam Date: 08/24/2023 09:00 Report Date: 08/24/2023 09:32 At the request of: JONATHAN LEMUS Procedure: CT stroke head/brain wo con CT head without contrast, 08/24/2023. HISTORY: Fell off of a couch. Unresponsive. Patient is intubated. COMPARISON: CT head without contrast, 05/04/2018. TECHNIQUE: Noncontrast axial CT images obtained through the head. Reconstructions were obtained in the sagittal and coronal planes. Dose reduction techniques were achieved by using automated exposure control and/or adjustment of mA and/or kV according to patient size and/or use of iterative reconstruction technique. FINDINGS: The patient is intubated. Retained secretions are seen in the nasopharynx. Paranasal sinuses are clear. Mastoid air cells and middle ear cavities are clear. Skull base is intact. No skull lesion. No skull fracture. 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 Orbital contents are normal. Mild brain atrophy. There is no hydrocephalus. No subdural fluid collection. No mass effect. No shift of midline. No acute intracranial hemorrhage. No masses. Wallace matter and white matter differentiation appears to be intact. No vascular hyperdensity identified. No cerebral edema. CT/CT stroke head/brain wo con IMPRESSION: 1. No acute intracranial findings. 2. No hemorrhage appreciated. 3. No cerebral edema. Wallace matter and white matter differentiation is intact. 4. Mild generalized brain atrophy. No hydrocephalus. Electronically authenticated by: SHAY CABELLO Date: 08/24/2023 09:32
--- NOTE | 2023-08-24 08:49 | CT_ITS ---
The [address] [address] Patient Name: MICHELLE BE MRN: [id number] date: 1960 Sex: F Assigned Patient Location: ED.MAIN Current Patient Location: Accession/Order Number: [id number] Exam Date: 08/24/2023 09:00 Report Date: 08/24/2023 09:40 At the request of: JONATHAN LEMUS Procedure: CT cervical spine wo con EXAM: CT cervical spine wo con HISTORY: Fall from couch. Unresponsive. COMPARISON: None. TECHNIQUE: Contiguous transaxial images obtained through the cervical spine. Coronal and sagittal reformations performed. FINDINGS: There is an endotracheal tube and enteric tube partially visualized. There is associated mild prevertebral soft tissue swelling. There is no acute cervical spine fracture identified. There is incomplete fusion of the posterior arch of C1, an anatomic normal variant. There is minimal degenerative disc disease of the cervical spine with minimal anterolisthesis of C2 on C3. There is mild C4-5 uncovertebral joint osteoarthritis. There is also mild facet joint osteoarthritis. There is no significant osseous central canal stenosis. There is right C4-5 neural foraminal narrowing. There is mild atlantodental articulation osteoarthritis. There is bilateral carotid artery atherosclerosis. CT/CT cervical spine wo con IMPRESSION: 1. Endotracheal tube and enteric tube partially visualized. 2. No acute cervical spine fracture identified. 3. Minimal degenerative disc disease of the cervical spine with minimal anterolisthesis of C2 on C3. 4. Right C4-5 neural foraminal narrowing due to uncovertebral joint osteoarthritis. 5. Carotid artery atherosclerosis. Electronically authenticated by: HENRI COLLINS Date: 08/24/2023 09:40
[2023-08-24 08:55] VITALS: BP 166/114; PULSE 100; TEMP 37; O2SAT 97; BMI 43.3
[2023-08-24] MEDS: ETOMIDATE 20 MG/10 ML VIAL IVP (08:55)
[2023-08-24] MEDS: VECURONIUM BROMIDE 10 MG VIAL IV (09:01)
[2023-08-24] MEDS: LORAZEPAM 2 MG/ML VIAL 1 MG IV (09:03)
--- NOTE | 2023-08-24 09:04 | XR_ITS ---
The [address] [address] Patient Name: MICHELLE BE MRN: [id number] date: 1960 Sex: F Assigned Patient Location: ER Current Patient Location: ER Accession/Order Number: [id number] Exam Date: 08/24/2023 09:00 Report Date: 08/24/2023 09:38 At the request of: JONATHAN LEMUS Procedure: XR chest 1V EXAMINATION: XR chest 1V HISTORY: Postintubation COMPARISON: XR chest 07/11/2023 FINDINGS: LUNGS: Endotracheal tube with tip 3.1 cm above the diane. Underexpanded lungs without appreciable infiltrates. VASCULATURE: No increased pulmonary vasculature. PLEURA: No pneumothorax, effusion, or pleural thickening. CARDIAC: No cardiomegaly or cardiac silhouette abnormality. MEDIASTINUM: No visible mass or adenopathy. BONES: No fracture or visible bone lesion. OTHER: Nasogastric tube with tip in distal stomach. XR/XR chest 1V IMPRESSION: 1. Endotracheal tube with tip 3.1 cm above the diane. 2. Low lung volume examination. No acute cardiopulmonary process. Electronically authenticated by: KINGSLEY CLEMENTS Date: 08/24/2023 09:38
--- NOTE | 2023-08-24 09:04 | ECG_ITS ---
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
--- NOTE | 2023-08-24 09:12 | ED.AMS1 ---
HPI - Altered Mental Status General Chief Complaint: Altered Mental Status Stated Complaint: CVA SYMPTOMS Time Seen by Provider: 08/24/23 08:49 Mode of arrival: ambulance History of Present Illness HPI narrative: 62-year-old female presents to the emergency department for altered mental status. We have quite limited history. Paramedics were called to the residence because the patient had rolled off of the couch. She seemed to be mostly nonresponsive. Paramedics checked her blood sugar and it was normal and they transported her here. While they were still at the scene they activated [facility]. [facility] had an ETA of 25 minutes and the paramedics requested that [facility] meet the patient here at the hospital. No history is obtainable from the patient. Reportedly she had a recent stroke. The type is unknown and where she was treated is unknown as well. No further history is obtainable. Related Data Home Medications ?Medication ?Instructions ?Recorded ?Confirmed amlodipine 10 mg tablet (Norvasc) 10 mg PO DAILY 09/10/22 08/04/23 biotin 1 mg capsule 1 mg PO DAILY 09/10/22 08/04/23 cariprazine 4.5 mg capsule 4.5 mg PO Q24H 09/10/22 08/04/23 (Vraylar) cetirizine 10 mg tablet (24Hour 10 mg PO DAILY PRN allergy symptoms 09/10/22 08/04/23 Allergy) clonazepam 1 mg tablet 1 mg Q12H 09/10/22 duloxetine 60 mg capsule,delayed mg PO BID 09/10/22 release ferrous sulfate 325 mg (65 mg 325 mg PO BID 09/10/22 08/04/23 iron) tablet (FeroSul) gabapentin 600 mg tablet 1,200 mg PO DAILY 09/10/22 08/04/23 (Neurontin) gabapentin 600 mg tablet 600 mg PO DAILY 09/10/22 08/04/23 (Neurontin) losartan 50 mg tablet (Cozaar) 50 mg PO DAILY 09/10/22 08/04/23 magnesium 200 mg tablet 400 mg PO BID 09/10/22 08/04/23 melatonin 12 mg tablet 12 mg PO .HS PRN sleep 09/10/22 08/04/23 omeprazole 20 mg capsule,delayed 20 mg 09/10/22 release ropinirole 4 mg tablet mg QDAY 09/10/22 trazodone 150 mg tablet 300 mg .HS 09/10/22 tizanidine 4 mg capsule 4 mg PO TID PRN muscle spasticity 02/18/23 08/04/23 carvedilol 6.25 mg tablet 6.25 mg PO Q12H 07/11/23 08/04/23 eszopiclone 1 mg tablet (Lunesta) 2 mg .HS 08/04/23 Allergies Allergy/AdvReac Type Severity Reaction Status Date / Time levetiracetam [From Kera] Allergy Severe Verified 08/04/23 08:05 adhesive Allergy Intermediate Blister Verified 08/04/23 08:05 Penicillins Allergy Intermediate Verified 08/04/23 08:05 tetracycline Allergy Intermediate Verified 08/04/23 08:05 milnacipran [From Savella] AdvReac Intermediate Agitated Verified 08/04/23 08:05 prochlorperazine AdvReac Intermediate Agitated Verified 08/04/23 08:05 [From Compazine] Review of Systems ROS Narrative Unobtainable, altered mental status PFSH PFSH Medical History FH: bariatric surgery ?Z84.89 - Family history of other specified conditions (ICD-10) Upper back pain ?M54.9 - Dorsalgia, unspecified (ICD-10) Osteoarthritis ?M19.90 - Unspecified osteoarthritis, unspecified site (ICD-10) Neck pain ?M54.2 - Cervicalgia (ICD-10) Low back pain ?M54.50 - Low back pain, unspecified (ICD-10) Fibromyalgia ?M79.7 - Fibromyalgia (ICD-10) Bipolar 1 disorder ?F31.9 - Bipolar disorder, unspecified (ICD-10) Acid reflux ?K21.9 - Gastro-esophageal reflux disease without esophagitis (ICD-10) Obesity ?E66.9 - Obesity, unspecified (ICD-10) Sleep apnea ?G47.30 - Sleep apnea, unspecified (ICD-10) Heart murmur ?R01.1 - Cardiac murmur, unspecified (ICD-10) High cholesterol ?E78.00 - Pure hypercholesterolemia, unspecified (ICD-10) Hypertension ?I10 - Essential (primary) hypertension (ICD-10) Surgical History S/P dilatation and curettage ?Z98.890 - Other specified postprocedural states (ICD-10) H/O breast biopsy ?Z98.890 - Other specified postprocedural states (ICD-10) S/P ORIF (open reduction internal fixation) fracture ?Z98.890 - Other specified postprocedural states (ICD-10) ?Z87.81 - Personal history of (healed) traumatic fracture (ICD-10) Hx of laparoscopic gastric banding ?Z98.84 - Bariatric surgery status (ICD-10) History of tonsillectomy and adenoidectomy ?Z90.89 - Acquired absence of other organs (ICD-10) History of appendectomy ?Z90.49 - Acquired absence of other specified parts of digestive tract (ICD-10) History of hemilaminectomy ?Z98.890 - Other specified postprocedural states (ICD-10) History of cholecystectomy ?Z90.49 - Acquired absence of other specified parts of digestive tract (ICD-10) Previous section ?Z98.891 - History of uterine scar from previous surgery (ICD-10) Social History Smoking status: Former smoker Exam Narrative Exam Narrative: Nurses note and vital signs reviewed and patient is not hypoxic. General: The patient is moaning and attempts to sit up. Skin: Warm, dry, no pallor noted. There is no rash noted. Head: Normocephalic, atraumatic Eye: Normal conjunctiva, no drainage, pupils are 5 mm and slow to react Ears, Nose, Mouth, and Throat: oral mucosa is moist. Nares patent. Cardiovascular: Regular Rate and Rhythm, not Respiratory: Breath sounds are equal. She has periods of apnea. GI: Soft and not apparently tender. Nondistended Musculoskeletal: The patient has no evidence of calf tenderness, no pitting edema, symmetrical pulses noted bilaterally Neurological: She is moaning. She is nonverbal. She does not follow commands. She does move all 4 extremities. She seems to withdraw to pain. Psychiatric: Cannot be assessed Constitutional Vital Signs, click to edit/add: Last Vital Signs Temp 98.6 F 08/24/23 08:55 Pulse 100 H 08/24/23 08:55 Resp 16 08/24/23 08:55 BP 166/114 H 08/24/23 08:55 Pulse Ox 97 08/24/23 08:55 O2 Del Method Nasal Cannula 08/24/23 09:01 O2 Flow Rate 6 08/24/23 09:01 Course Vital Signs Vital signs: Vital Signs Temperature 98.6 F 08/24/23 08:55 Pulse Rate 100 H 08/24/23 08:55 Respiratory Rate 16 08/24/23 08:55 Blood Pressure 166/114 H 08/24/23 08:55 Pulse Oximetry 97 08/24/23 08:55 Oxygen Delivery Method Room Air 08/24/23 08:55 Temperature 98.6 F 08/24/23 08:55 Pulse Rate 100 H 08/24/23 08:55 Respiratory Rate 16 08/24/23 08:55 Blood Pressure 166/114 H 08/24/23 08:55 Pulse Oximetry 97 08/24/23 08:55 Oxygen Delivery Method Nasal Cannula 08/24/23 09:01 Oxygen Delivery Flow Rate 6 08/24/23 09:01 MDM - Altered Mental Status MDM Narrative Medical decision making narrative: The transfer was initiated by the paramedics in the field. [facility] arrived a few minutes after the patient did. CT brain is negative and CT C-spine is negative. The patient required to be intubated upon arrival because of periods of apnea. The following procedure was performed by me. The patient was given IV etomidate and orotracheally intubated with a 7-0 tube on first attempt by me with direct visualization of the tube passing between the cords. Bilateral breath sounds present and no borborygmi. Appropriate change on the capnometer. Chest x-ray on my interpretation shows appropriate tube placement. The patient's workup was incomplete but the transfer was already initiated and we are proceeding with the transfer. I have spoken to Dr. Stewart and Dr. Goldberg at [facility] and they accept the patient. The is agreeable for transfer and the patient is stable for transfer. Differential Diagnosis Differential diagnosis: Likely alcoholic intoxication, altered mental status, delirium, hypoglycemia, hyponatremia, subarachnoid hemorrhage and OTHER (Hemorrhagic stroke, CVA) Medical Records Attestation: I reviewed the patient's medical records. Lab Data Labs: Lab Results 08/24/23 Range/Units 08:55 POC Glucose 129 H (74-106) mg/dL Imaging Data CT scan - head: Radiologist's impression: ITS Impressions Brain CT 08/24/23 08:49 IMPRESSION: 1. No acute intracranial findings. 2. No hemorrhage appreciated. 3. No cerebral edema. Wallace matter and white matter differentiation is intact. 4. Mild generalized brain atrophy. No hydrocephalus. Electronically authenticated by: SHAY CABELLO Date: 08/24/2023 09:[address] 08/24/23 08:49 IMPRESSION: 1. Endotracheal tube and enteric tube partially visualized. 2. No acute cervical spine fracture identified. 3. Minimal degenerative disc disease of the cervical spine with minimal anterolisthesis of C2 on C3. 4. Right C4-5 neural foraminal narrowing due to uncovertebral joint osteoarthritis. 5. Carotid artery atherosclerosis. Electronically authenticated by: HENRI COLLINS Date: 08/24/2023 09:40 Chest X-Ray 08/24/23 09:04 IMPRESSION: 1. Endotracheal tube with tip 3.1 cm above the diane. 2. Low lung volume examination. No acute cardiopulmonary process. Electronically authenticated by: KINGSLEY CLEMENTS Date: 08/24/2023 09:38 ECG Data Attestation: I personally reviewed and interpreted this ECG as follows: (EKG on my interpretation shows sinus rhythm with a rate of 55 and no acute change) Critical Care Time Critical Care Time Critical Care Time: Yes Total Critical Care Time: 60 Attestation: Due to the high probability of sudden and clinically significant deterioration in the patient's condition he/she required the highest level of my preparedness to intervene urgently I provided critical care time including documentation time, medication orders and management, reevaluation, vital sign assessment, ordering and reviewing of lab tests, ordering and reviewing of x-ray studies, and admission orders. Aggregate critical care time is 60 minutes including only time during which I was engaged in work directly related to his/her care and did not include time spent treating other patients simultaneously. Discharge Plan Discharge Chief Complaint: Altered Mental Status Clinical Impression: Acute CVA (cerebrovascular accident) Patient Disposition: [facility] Time of Disposition Decision: 09:47 Discharge Location: [facility] Condition: Critical Mode of Transportation: [facility]
[2023-08-24 09:14] LABS: Glucometer 129 mg/dL (74-106)
[2023-08-24] MEDS: PROPOFOL 1,000 MG/100 ML VIAL 3.53799999999999981 MG IV (09:34)
[2023-08-24 09:59] VITALS: BP 145/89; O2SAT 98
== END 2023-08-24 10:00 | disposition short-term general hospital (02) ==
PROVIDERS: Emergency Provider Emergency Medicine; PCP Nurse Practitioner
DX: I63.9 Cerebral infarction, unspecified (principal); Z79.899 Other long term (current) drug therapy; M19.90 Unspecified osteoarthritis, unspecified site; M79.7 Fibromyalgia; F31.9 Bipolar disorder, unspecified; K21.9 Gastro-esophageal reflux disease without esophagitis; E66.9 Obesity, unspecified; G47.30 Sleep apnea, unspecified; E78.00 Pure hypercholesterolemia, unspecified; I10 Essential (primary) hypertension; Z68.41 Body mass index [BMI] 40.0-44.9, adult; Z98.890 Other specified postprocedural states; Z98.84 Bariatric surgery status; Z90.89 Acquired absence of other organs; Z90.49 Acquired absence of other specified parts of digestive tract; Z87.891 Personal history of nicotine dependence
CPT/HCPCS: 31500; 36415; 70450; 71045; 72125; 80048; 80307; 80320; 81001; 85610; 85730; 93005; 99291

== ENCOUNTER 2023-09-18 12:50 | Outpatient (OUT) | payer MEDICARE, SELFPAY ==
--- OUTSIDE RECORDS SUMMARY | 2023-09-18 12:56 | XMS_ITS | CCD ---
Author Organization [facility] ion [facility] Care Team Providers Care Cash Posting Clerk Name Role Phone JHOANAHEIM, SUKI Admitting Unavailable EBRAHEIM, SUKI Attending Unavailable AICHHOLZ, ADELAIDA Referring Unavailable AICHHOLZ, ADELAIDA Primary Care Unavailable CT Procedure Practitioner Unavailab SUKI Jacob Surgeon Unavailable CT Procedure Practitioner Unavailab CHAPARRITA Goncalves Surgeon Unavailable BRIDGETTE MACEDO Admitting Unavailable BRIDGETTE MACEDO Attending Unavailable AICHHOLZ, SECTION 8 PROPERTY MANAGER ADELAIDA Primary Care Unavailable ZIMMER ., DR FINA Iverson Admitting Unavailable ZIMMER ., DR FINA Iverson Attending Unavailable AICHHOLZ, SECTION 8 PROPERTY MANAGER ADELAIDA Primary Care Unavailable MCDANIEL ., ZELDA Consulting Unavailable LAKSHMIPATHY ., NARENDRANATH Consulting Paula vailable LAKSHMIPATHY ., NARENDRANATH Admitting Paula vailable LAKSHMIPATHY ., NARENDRANATH Attending Paula vailable AICHHOLZ, SECTION 8 PROPERTY MANAGER ADELAIDA Primary Care Unavailable LAKSHMIPATHY ., NARENDRANATH Consulting Paula vailable AICHHOLZ, SECTION 8 PROPERTY MANAGER ADELAIDA Primary Care Unavailable MARKER ., DR CHAUDHRY Admitting Unavailable MARKER ., DR CHAUDHRY Attending Unavailable MARKER ., DR CHAUDHRY Consulting Unavailable AICHHOLZ, SECTION 8 PROPERTY MANAGER ADELAIDA Admitting Unavailable AICHHOLZ, SECTION 8 PROPERTY MANAGER ADELAIDA Attending Unavailable AICHHOLZ, SECTION 8 PROPERTY MANAGER ADELAIDA Primary Care Unavailable ZIMMER ., DR FINA Iverson Admitting Unavailable ZIMMER ., DR FINA Iverson Attending Unavailable AICHHOLZ, SECTION 8 PROPERTY MANAGER ADELAIDA Primary Care Unavailable MCDANIEL ., ZELDA Consulting Unavailable ZIMMER ., DR FINA Iverson Admitting Unavailable ZIMMER ., DR FINA Iverson Attending Unavailable AICHHOLZ, SECTION 8 PROPERTY MANAGER ADELAIDA Primary Care Unavailable MCDANIEL ., ZELDA Consulting Unavailable AICHHOLZ, SECTION 8 PROPERTY MANAGER ADELAIDA Admitting Unavailable AICHHOLZ, SECTION 8 PROPERTY MANAGER ADELAIDA Attending Unavailable AICHHOLZ, SECTION 8 PROPERTY MANAGER ADELAIDA Primary Care Unavailable AICHHOLZ, SECTION 8 PROPERTY MANAGER ADELAIDA Consulting Unavailable AICHHOLZ, SECTION 8 PROPERTY MANAGER ADELAIDA Admitting Unavailable AICHHOLZ, SECTION 8 PROPERTY MANAGER ADELAIDA Attending Unavailable AICHOLZ, SECTION 8 PROPERTY MANAGER ADELAIDA Primary Care Unavailable AICHHOLZ, SECTION 8 PROPERTY MANAGER ADELAIDA Consulting Unavailable MISC, DR COTE Admitting Unavailable MISC, DR COTE Attending Unavailable AICHOLZ, SECTION 8 PROPERTY MANAGER ADELAIDA Primary Care Unavailable AICHHOLZ, SECTION 8 PROPERTY MANAGER ADELAIDA Consulting Unavailable PRITESHC, DR COTE Consulting Unavailable DR KINGSLEY CLEMENTS Consulting Unavailable ZIMMER ., DR FINA Iverson Admitting Unavailable ZIMMER ., DR FINA Iverson Attending Unavailable AICHOLZ, [facility] ADELAIDA Primary Care Unavailable MCDANIEL ., ZELDA Consulting Unavailable ZIMMER ., DR FINA Iverson Admitting Unavailable ZIMMER ., DR FINA Iverson Attending Unavailable [facility], [facility] ADELAIDA Primary Care Unavailable ZIMMER ., DR FINA Iverson Consulting Unavailable OMID LAY Consulting Unavailable ZIMMER ., DR FINA Iverson Admitting Unavailable ZIMMER ., DR FINA Iverson Attending Unavailable [facility], [facility] ADELAIDA Primary Care Unavailable MCDANIEL ., ZELDA Consulting Unavailable AICHOLZ, SECTION 8 PROPERTY MANAGER ADELAIDA Primary Care Unavailable HALKER ., ARIAN Admitting Unavailable HALKER ., ARIAN Attending Unavailable LAKSHMIPATHY ., NARENDRANATH Consulting Paula vailable HALKER ., ARIAN Consulting Unavailable LAKSHMIPATHY ., NARENDRANATH Admitting Paula vailable LAKSHMIPATHY ., NARENDRANATH Attending Paula vailable [facility], [facility] ADELAIDA Primary Care Unavailable LAKSHMIPATHY ., NARENDRANATH Consulting Paula vailable AICHHOLZ, SECTION 8 PROPERTY MANAGER ADELAIDA Admitting Unavailable AICHHOLZ, SECTION 8 PROPERTY MANAGER ADELAIDA Attending Unavailable AICHHOLZ, SECTION 8 PROPERTY MANAGER ADELAIDA Primary Care Unavailable AICHHOLZ, SECTION 8 PROPERTY MANAGER ADELAIDA Consulting Unavailable BRIDGETTE MACEDO Admitting Unavailable BRIDGETTE MACEDO Attending Unavailable AICHHOLZ, SECTION 8 PROPERTY MANAGER ADELAIDA Primary Care Unavailable DR KINGSLEY CLEMENTS Consulting Unavailable BRIDGETTE MACEDO Consulting Unavailable PURA, GILMER Admitting Unavailable PURAGILMER Attending Unavailable PURA, GILMER Consulting Unavailable AICHOLZ, SECTION 8 PROPERTY MANAGER ADELAIDA Primary Care Unavailable AICHHOLZ, SECTION 8 PROPERTY MANAGER ADELAIDA Primary Care Unavailable DR WILLI RINALDI Admitting Unavailable DEEJAY, DR WILLI Atkins Attending Unavailable RINALDI, DR WILLI R Consulting Unavailable AICHHOLZ, SECTION 8 PROPERTY MANAGER ADELAIDA Primary Care Unavailable ALMAZ ., DANNY Admitting Unavailable ALMAZ ., DANNY Attending Unavailable DR KINGSLEY CLEMENTS Consulting Unavailable ALMAZ ., DANNY Consulting Unavailable LAKSHMIPATHY ., NARENDRANATH Admitting Paula vailable LAKSHMIPATHY ., NARENDRANATH Attending Paula vailable AICHHOLZ, SECTION 8 PROPERTY MANAGER ADELAIDA Primary Care Unavailable AICHHOLZ, SECTION 8 PROPERTY MANAGER ADELAIDA Admitting Unavailable AICHHOLZ, SECTION 8 PROPERTY MANAGER ADELAIDA Attending Unavailable AICHHOLZ, SECTION 8 PROPERTY MANAGER ADELAIDA Primary Care Unavailable AICHHOLZ, SECTION 8 PROPERTY MANAGER ADELAIDA Admitting Unavailable AICHHOLZ, SECTION 8 PROPERTY MANAGER ADELAIDA Attending Unavailable AICHHOLZ, SECTION 8 PROPERTY MANAGER ADELAIDA Primary Care Unavailable AICHHOLZ, SECTION 8 PROPERTY MANAGER ADELAIDA Consulting Unavailable STARR, DR KINGSLEY Atkins Consulting Unavailable HALKER ., ARIAN Admitting Unavailable HALKER ., ARIAN Attending Unavailable AICHHOLZ, SECTION 8 PROPERTY MANAGER ADELAIDA Primary Care Unavailable Aichholz, Adelaida J Primary Care Provider MD Gaudencio Monk Admit Provider [phone] MD Gaudencio Monk Attending Provider [phone] JOHANN Vieira Other Provider Unavailable JOHANN Pina Other Provider Unavailable JOHANN Hurtado Other Provider Unavailable JOHANN Crooks Other Provider Unavailable JOHANN Mejias Other Provider Unavailable JOHANN Kim Other Provider Unavailable MD Walker Pringle Other Provider ROSS Marsh Other Provider DO Jessica Murillo Other Provider [phone] MD Obdulio Bragg Other Provider DO Joon Cristina Other Provider [phone] MD Torin Robert Other Provider [phone] MD Dawn Barrera Other Provider Karlene ANP- Mari Other Provider MD Sofi Almanzar Other [...] Provider MD Jace Graham Attending Provider Sheyla CERT PHARMACY TECH, Adelaida Unavailable Alejandra JAIMES, José Luis Primary Care Provider Jamee JAIMES, Syeda King Attending Unavailable ASHLEIGH HINES Attending Unavailable SHEYLA, ADELAIDA Attending Unavailable ASHLEIGH HINES Attending Unavailable SHEYLA, ADELAIDA Attending Unavailable SHEYLA, ADELAIDA Attending Unavailable SHEYLA, ADELAIDA Attending Unavailable JR. HARRY GEORGE C Attending Unavaila ble SHEYLA, ADELAIDA Attending Unavailable Aleshia, Eduardo Admitting Unavailab le Eduardo Monk Attending Unavailab [...] Le Consulting Unavailable Severo Yancey Consulting Unavailab kayleen Akbar, Rao Consulting Unavailable Yuan Shi Consulting Unavailable Delroy Ramirez Consulting Unavailable Berta Comer Consulting Unavailable Negrito Ruiz Consulting Unavailable Lacho Singh Consulting Unavailable Rachana Hobson Consulting Unavailable [place] Consulting Unavailable ShadeomaJeff atkins Consulting Unavailable Urmila Rinaldi Consulting Unavailable Bina Mayberry Consulting Unavailable Mir Bradford Consulting Unavailable Te Da Silva Consulting Unavailable Debra Landaverde Consulting Unavailable Jace Graham Admitting Unavailable Jace Graham Attending Unavailable Adelaida Carrion Primary Care Unavailable Aleshia, Eduardo Admitting Unavailab Eduardo oCnnolly Attending Unavailab le Adelaida Carrion Primary Care Unavailable Allergies Allergy Classification Reported Allergen(s) Allergy Type Date of Onset Reaction(s) Facility (7 sources) Adhesive Tape; Translations: [ADHESIVE TAPE] Propensity to adverse reactions (disorder) 04-06-19 14 rash [facility] Repository (3 sources) levETIRAcetam; Translations: [KEPPRA] Drug Allergy 07-02-19 19 [facility] Repository (3 sources) milnacipran; Translations: [SAVELLA] Drug Allergy 03-14-20 13 [facility] Repository (1 source) Penicillin; Translations: [PENICILLIN] Drug Allergy 01-16-20 18 [facility] Repository (5 sources) Prochlorperazin e; Translations: [COMPAZINE] Drug Allergy 03-14-20 13 agitation [facility] Repository (12 sources) Tetracycline; Translations: [TETRACYCLINE] Drug Allergy 04-06-19 13 Hives, Unknown [facility] Repository (4 sources) Penicillins Drug allergy (disorder) 04-06-19 13 Unknown Reaction [facility] Repository (9 sources) levETIRAcetam; Translations: [levetiracetam] Drug Allergy 12-13-19 22 Hallucinations , Other [facility] (9 sources) milnacipran; Translations: [milnacipran] Drug Allergy 12-13-19 22 hives, Hallucinations , Other, Unknown [facility] (7 sources) Prochlorperazin e; Translations: [prochlorperazi ne] Drug Allergy 12-13-19 22 Unknown, Other [facility] (2 sources) Penicillin G Drug Allergy as a child TBS Other (2 sources) Tetracaine Drug Allergy Unknown [facility] Other (4 sources) Penicillins Drug Intolerance 12-13-19 22 Anaphylaxis [facility] (4 sources) Other Propensity to adverse reactions 12-13-19 22 Other [facility] (4 sources) Wound Dressing Adhesive Drug Allergy 09-20-19 23 Rash, Unknown [facility] (1 source) Penicillin Drug Allergy 12-20-19 23 [facility] (1 source) Penicillins Drug allergy (disorder) 03-23-20 [facility] Repository (1 source) Tetracaine Drug Allergy 12-20-19 [facility] Repository Medications Current Medications Medication [...] 23, 2023 12:00am take 2 tablets by [facility] once daily at bedtime Melatonin 10 MG 2 TABLETS Orally QHS Active Melatonin 12 MG tablet dispersible (4 sources) Melatonin 12 MG tablet dispersible 1 (one) time each day at the same time. 0 Active Multiple Vitamins-Minerals (BARIATRIC MULTIVITAMINS/IRON PO) (4 sources) Multiple Vitamins-Minerals (BARIATRIC MULTIVITAMINS/IRON PO) Bariatric Multivitamins/Iron 0 Active Wvvjmyijfjip-Hta-Oabv-Fa- Vit K (Bariatric Multivitamins) 45 mg iron- 800 mcg-120 mcg Capsule (2 sources) Start: 11-17-2022 take 1 capsule by mouth once daily Kuitlxphlowk-Vju-Vwsl-Fa -Vit K (Bariatric Multivitamins) 45 mg iron- 800 mcg-120 mcg Capsule Active 1 CAP PO Daily November 16, 2022 11:00pm Start: 11-17-2022 take 1 capsule by [facility] once daily Nigtpdpqhbxo-Vte-Wyob-Fa-Vit K (Bariatri c Multivitamins) 45 mg iron- 800 mcg-120 mcg Capsule Active 1 CAP PO Daily November 17, 2022 12:00am nystatin 100 unt/mg topical powder (4 sources) Polyene Antifungal nystatin (Myc ostatin) 393569 UNIT/GM powder Apply 1 application topically in the morning and 1 application before bedtime. 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 therapy; Translations: [OTH LONGTERM CURRENT DRUG THERAPY] Onset: 04-29-2022 Episodic Other [...] on 03-23-2023 Amphetamines Ql (U) Negative Negative [facility] Barbiturates [Presence] in U rine by Screen methodOrdered By: Jace Graham on 03-23-2023 Barbiturates Screen Ql (U) Negative Negative [facility] Benzodiazepines Screen Ql (U )Ordered By: Jace Graham on 03-23-2023 Benzodiazepines Ql (U) Negative Negative [facility] Benzoylecgonine [Presence] i n Urine by Screen methodOrdered By: Jace Graham on 03-23-2023 Benzoylecgonine Screen Ql (U) Negative Negative [facility] Cannabinoids [Presence] in U rine by Screen methodOrdered By: Jace Graham on 03-23-2023 Cannabinoids Screen Ql (U) Negative Negative [facility] Comment on above: These are unconfirme d results and should not be used for legal purposes. Drug Cut-Off Concentration: AMPH 1000 ng/mL ELKIN 200 ng/mL ATIYA 200 ng/mL COCM 300 ng/mL OP 300 ng/mL PCP 25 ng/mL THC 20 ng/mL Drug Screen,Urineon 03-23-20 Amphetamine Screen,Urine Negative Normal Negative [facility] Comment on above: Performed By: #### U RDS #### [address] Barbiturate Screen,Urine Negative Normal Negative [facility] Comment on above: Performed By: #### U RDS #### [address] Benzodiazepines Screen,Urine Negative Normal Negative [facility] Comment on above: Performed By: #### U RDS #### [address] Cannabinoid Screen,Urine Negative Normal Negative [facility] Comment on above: Result Comment: Thes e are unconfirmed results and should not be used for legal purposes. Drug Cut-Off Concentration: AMPH 1000 ng/mL ELKIN 200 ng/mL ATIYA 200 ng/mL COCM 300 ng/mL OP 300 ng/mL PCP 25 ng/mL THC 20 ng/mL PERFORMED BY: [place] [address] PATHOLOGIST TAILER OFF AN CURRY M.D. Performed By: #### U RDS #### [place] [address] [place] Cocaine Screen,Urine Negative Normal Negative [facility] Comment on above: Performed By: #### U RDS #### [place] [address] [place] Opiate Screen,Urine Negative Normal Negative [facility] Comment on above: Performed By: #### U RDS #### [address] Phencyclidine Screen,Urine Negative Normal Negative [facility] Comment on above: Performed By: #### U RDS #### [facility] [address] [place] [address] [facility] Opiates [Presence] in Urine by Screen methodOrdered By: Jace Graham on 03-23-2023 Opiates Screen Ql (U) Negative Negative [facility] Phencyclidine Screen Ql (U)O rdered By: Jace Graham on 03-23-2023 Phencyclidine Ql (U) Negative Negative [facility] Cholesterol [Mass/volume] in Serum or PlasmaOrdered By: Eduardo Monk on 11-18-2022 Cholesterol [Mass/Vol] 159 mg/dL Normal 140-200 [facility] Comment on above: Chol less than 200 m g/dl low riskChol 201-239 mg/dl borderline riskChol 240 mg/dl and greater high risk Order Comment: teri barney to tomorrow morning Result Comment: Chol less than 200 mg/dl low risk Chol 201-239 mg/dl borderline risk Chol 240 mg/dl and greater high risk Performed By: #### L IPID #### [facility] [address] [place] [address] [facility] Cholesterol in LDL Calc [Mas s/Vol]Ordered By: Eduardo Monk on 11-18-2022 Cholesterol in LDL [Mass/Vol] 84 mg/dL 0-100 [facility] Comment on above: LDL ATP III CLASSIFI CATIONLDL less than 100 mg/dL OptimalLDL 100-129 mg/dL Near or above optimalLDL 130-159 mg/dL Borderline highLDL 160-189 mg/dL HighLDL greater than 189 mg/dL Very high Cholesterol in VLDL Calc [Ma ss/Vol]Ordered By: Eduardo Monk on 11-18-2022 Cholesterol in VLDL [Mass/Vol] 28 mg/dL [facility] Lipid Panelon 11-18-2022 LDL Cholesterol,Calculated 84 mg/dL Normal 0-100 [facility] Comment on above: Order Comment: teri barney to tomorrow morning Result Comment: LDL ATP III CLASSIFICATION LDL less than 100 mg/dL Optimal LDL 100-129 mg/dL Near or above optimal LDL 130-159 mg/dL Borderline high LDL 160-189 mg/dL High LDL greater than 189 mg/dL Very high Performed By: #### L IPID #### [facility] [address] Triglyceride w/Reflex 144 mg/dL Normal 0-149 [facility] Comment on above: Order Comment: teri barney to tomorrow morning Result Comment: TRIG ATP III CLASSIFICATION TRIG less than 150 mg/dL Normal TRIG 150-199 mg/dL Borderline high TRIG 200-500 mg/dL High TRIG greater than 500 mg/dL Very high Standard traceable to the Center for Disease Conrtrol and Prevention (CDC) test method. Performed By: #### L IPID #### [facility] [address] VLDL CHOLESTEROL 28 mg/dL Normal [facility] Comment on above: Order Comment: teri barney to tomorr morning Performed By: #### L IPID #### [facility] [address] Serum or plasma high density lipoprotein (HDL) cholesterol measurementOrdered By: Eduardo Monk on 11-18-2022 Cholesterol in HDL [Mass/Vol] 46 mg/dL Normal 23-92 [facility] Comment on above: HDL CHOL ATP-III CLA SSIFICATION Cardiovascular RiskHDL > or equal to 60 mg/dL LOWHDL < 40 mg/dL HIGH Order Comment: teri barney to tomorr morning Result Comment: HDL CHOL ATP-III CLASSIFICATION Cardiovascular Risk HDL > or equal to 60 mg/dL LOW HDL < 40 mg/dL HIGH Performed By: #### L IPID #### [facility] [address] Serum or plasma total choles terol/high density lipoprotein (HDL) cholesterol mass ratOrdered By: Eduardo Monk on 11-18-2022 Cholesterol.total/Chol esterol in HDL [Mass ratio] 3.5 {ratio} Normal <5.0 [facility] Comment on above: Order Comment: teri barney to tomorr morning Result Comment: PERF ORMED BY: [address] [place] [address] PATHOLOGIST TAILER OFF AN CURRY M.D. Performed By: #### L IPID #### [facility] [address] Thyrotropin [Units/volume] i n Serum or PlasmaOrdered By: Eduardo Monk on 11-18-2022 TSH Qn 2.13 m[IU]/L Normal 0.45-5.33 [facility] Comment on above: Performed By: #### T SH3, [id number] #### [facility] [address] Triglyceride [Mass/volume] i n Serum or PlasmaOrdered By: Eduardo Monk on 11-18-2022 Triglyceride [Mass/Vol] 144 mg/dL 0-149 [facility] Comment on above: TRIG ATP III CLASSIF ICATIONTRIG less than 150 mg/dL NormalTRIG 150-199 mg/dL Borderline highTRIG 200-500 mg/dL High TRIG greater than 500 mg/dL Very highStandard traceable to the Center for Disease Conrtrol and Prevention (CDC) test method. Vitamin D 25 Hydroxy Totalon 11-18-2022 Vitamin D 25 Hydroxy Total 50.4 ng/mL Normal 30-100 [facility] Comment on above: Result Comment: SKYLER MIN D STATUS 25(OH)VITAMIN D RANGE (ng/mL) Deficient <20 Insufficient 20 to <30 Sufficient 30 to 100 Reference: Bin MF,Lakshmi NC, Cristian SMART, et al. Evaluation,treatment, and prevention of vitamin D deficiency; an Endocrine Society clinical practice guideline. JCEM. 2010; 96(7):1911-30. PERFORMED BY: [place] [address] PATHOLOGIST TAILER OFF AN CURRY M.D. Performed By: #### T SH3, [id number] #### [facility] [address] [place] [address] Vitamin D+Metabolites [Mass/ volume] in Serum or PlasmaOrdered By: Eduardo Monk on 11-18-2022 Vitamin D+Metabolites [Mass/Vol] 50.4 ng/mL 30-100 [facility] Comment on above: VITAMIN D STATUS 25( [place])VITAMIN D RANGE (ng/mL) Deficient <20 Insufficient 20 to <30Sufficient 30 to 100Reference: Bin MF,Lakshmi CABRERA, Cristian SMART, et al. Evaluation,treatment, and prevention of vitamin D deficiency; an Endocrine Society clinical practice guideline. JCEM. 2010; 96(7):1911-30. CBC AUTO DIFFon 07-25-2022 BASO # 0.1 103/ul Normal 0.0-0.1 [facility] Comment on above: Performed By: #### A 1C #### [facility] [address] [address] [address] Bebeto Alvarado Basophils/100 WBC (Bld) 0.6 % Normal 0.2-2.0 [facility] Comment on above: Performed By: #### A 1C #### [facility] [address] [address] [address] Bebeto Alvarado EO # 0.2 103/ul Normal 0.0-0.7 [facility] Comment on above: Performed By: #### A 1C #### [facility] [address] [address] [address] Bebeto Alvarado Eosinophils/100 WBC (Bld) 2.3 % Normal 0.9-7.0 [facility] Comment on above: Performed By: #### A 1C #### [facility] [address] [address] [address] Bebeto Alvarado Erythrocyte distribution width (RBC) [Ratio] 13.8 % Normal 11.0-15.0 [facility] Comment on above: Performed By: #### A 1C #### [facility] [address] [address] [address] Bebeto Alvarado Hematocrit (Bld) [Volume fraction] 41.2 % Normal 36.0-48.0 [facility] Comment on above: Performed By: #### A 1C #### [facility] [address] [address] [address] Bebeto Alvarado Hemoglobin (Bld) [Mass/Vol] 13.2 g/dL Normal 12.0-16.0 [facility] Comment on above: Performed By: #### A 1C #### [facility] [address] [place] [address] Dr. Bebeto Alvarado IG # 0.03 10e3/ul Normal 0.00-0.03 [facility] Comment on above: Performed By: #### A 1C #### [facility] [address] [place] [address] Dr. Bebeto Alvarado IG % 0.4 % Normal 0.0-0.5 [facility] Comment on above: Performed By: #### A 1C #### [facility] [address] [place] [address] Dr. Bebeto Alvarado LYMPH # 2.1 103/ul Normal 1.2-3.8 [facility] Comment on above: Performed By: #### A 1C #### [facility] [address] [place] [address] Dr. Bebeto Alvarado Lymphocytes/100 WBC (Bld) 25.9 % Normal 20.5-60.0 [facility] Comment on above: Performed By: #### A 1C #### [facility] [address] [place] [address] Dr. Bebeto Alvarado MANUAL DIFF REQ NO Normal [facility] Comment on above: Performed By: #### A 1C #### [facility] [address] [place] [address] Dr. Bebeto Alvarado MCH (RBC) [Entitic mass] 28.0 pg Normal 26.7-34.0 [facility] Comment on above: Performed By: #### A 1C #### [facility] [address] [place] [address] Dr. Bebeto Alvarado MCHC (RBC) [Mass/Vol] 32.0 g/dL Normal 29.9-35.2 [facility] Comment on above: Performed By: #### A 1C #### [facility] [address] [place] [address] Dr. Bebeto Alvarado MCV (RBC) [Entitic vol] 87.5 fL Normal 81.0-99.0 [facility] Comment on above: Performed By: #### A 1C #### [facility] [address] [place] [address] Dr. Bebeto Alvarado MONO # 0.5 103/ul Normal 0.3-0.8 [facility] Comment on above: Performed By: #### A 1C #### [facility] [address] [place] [address] Dr. Bebeto Alvarado Monocytes/100 WBC (Bld) 6.6 % Normal 1.7-12.0 [facility] Comment on above: Performed By: #### A 1C #### [facility] [address] [place] [address] Dr. Bebeto Alvarado NEUT # 5.1 103/ul Normal 1.4-6.5 [facility] Comment on above: Performed By: #### A 1C #### [facility] [address] [place] [address] Dr. Bebeto Alvarado Neutrophils/100 WBC (Bld) 64.2 % Normal 43.0-75.0 [facility] Comment on above: Performed By: #### A 1C #### [facility] [address] [place] [address] Dr. Bebeto Alvarado Platelet mean volume (Bld) [Entitic vol] 11.2 fL Normal 9.5-13.5 [facility] Comment on above: Performed By: #### A 1C #### [facility] [facility] [address] [place] [address] Dr. Bebeto Alvarado PLT 252 103/ul Normal 150-450 [facility] Comment on above: Performed By: #### A 1C #### [facility] [address] [place] [address] Dr. Bebeto Alvarado RBC 4.71 106/ul Normal 4.20-5.40 [facility] Comment on above: Performed By: #### A 1C #### [facility] [address] [place] [address] Dr. Bebeto Alvarado WBC 8.0 103/ul Normal 4.0-11.0 [facility] Comment on above: Performed By: #### A 1C #### [facility] [address] [place] [address] Dr. Bebeto Alvarado GLYCOHEMOGLOBIN A1Con 2022 ADA RECOMMENDATION SEE BELOW Normal [facility] Comment on above: Result Comment: ADA RECOMMENDED LIMIT 4.0 - 6.0 ADA THERAPEUTIC TARGET < 7.0 ACTION SUGGESTED > 7.0 Performed By: #### A 1C #### [facility] [address] [address] [address] Bebeto Alvarado Glucose [Mass/Vol] 114 mg/dL Normal [facility] Comment on above: Performed By: #### A 1C #### [facility] [address] [address] [address] Bebeto Alvarado HbA1c (Bld) [Mass fraction] 5.6 % Normal 4.5-6.2 [facility] Comment on above: Performed By: #### A 1C #### [facility] [address] [place] [address] Dr. Bebeto Alvarado IRONon 07-25-2022 Iron [Mass/Vol] 60.0 ug/dL Normal 50.0-170.0 [facility] Comment on above: Performed By: #### V ITB12, IRON #### [facility] [address] [address] [address] Bebeto Alvarado LIPID PROFILEon 07-25-2022 CHOL-HDL RATIO NORM SEE BELOW Normal [facility] Comment on above: Result Comment: 3.3 - 4.4 LOW RISK 4.4 - 7.1 AVERAGE RISK 7.1 - 11.0 MODERATE RISK >11.0 HIGH RISK Performed By: #### C MP, LIPID #### [facility] [address] [place] [address] Dr. Bebeto Alvarado Cholesterol [Mass/Vol] 144 mg/dL Normal <=200 [facility] Comment on above: Performed By: #### C MP, LIPID #### [facility] [address] [place] [address] Dr. Bebeto Alvarado Cholesterol in HDL [Mass/Vol] 39 mg/dL Critically low 40-60 [facility] Comment on above: Performed By: #### C MP, LIPID #### [facility] [address] [address] [address] Bebeto Alvarado Cholesterol in LDL [Mass/Vol] 74.6 mg/dL Normal [facility] Comment on above: Performed By: #### C MP, LIPID #### [facility] [address] [address] [address] Bebeto Alvarado Cholesterol.total/Chol esterol in HDL [Mass ratio] 3.7 {ratio} Normal [facility] Comment on above: Performed By: #### C MP, LIPID #### [facility] [address] [address] [address] Bebeto Alvarado HDL NORMAL > or = 60 mg/dl - LO W CARDIOVASCULAR RISK <40 mg/dl - HIGH CARDIOVASCULAR RISK Normal [facility] Comment on above: Performed By: #### C MP, LIPID #### [facility] [address] [address] [address] Bebeto Alvarado LDL CALC NORMAL SEE BELOW Normal [facility] Comment on above: Result Comment: <100 mg/dl OPTIMAL 100 - 129 mg/dl NEAR OR ABOVE OPTIMAL 130 - 159 mg/dl BORDERLINE HIGH 160 - 189 mg/dl HIGH >190 mg/dl VERY HIGH Performed By: #### C MP, LIPID #### [facility] [address] [address] [address] Bebeto Alvarado Triglyceride [Mass/Vol] 152 mg/dL Critically high <=150 [facility] Comment on above: Performed By: #### C MP, LIPID #### [facility] [address] [address] [address] Bebeto Alvarado VLDL CALC 30.4 mg/dL Normal [facility] Comment on above: Performed By: #### C MP, LIPID #### [facility] [address] [address] [address] Bebeto Alvarado PROF 14(COMP METB)on 023 Albumin [Mass/Vol] 3.7 g/dL Normal 3.4-5.0 [facility] Comment on above: Performed By: #### C MP, LIPID #### [facility] [address] [address] [address] Bebeto Alvarado Albumin/Globulin [Mass ratio] 0.9 {ratio} Normal [facility] Comment on above: Performed By: #### C MP, LIPID #### [facility] [address] [address] [address] Bebeto Alvarado ALP [Catalytic activity/Vol] 90 U/L Normal 46-116 [facility] Comment on above: Performed By: #### C MP, LIPID #### [facility] [address] [address] [address] Bebeto Alvarado ALT [Catalytic activity/Vol] 38 U/L Normal 14-59 [facility] Comment on above: Performed By: #### C MP, LIPID #### [facility] [address] [address] [address] Bebeto Alvarado Anion gap [Moles/Vol] 12.1 mmol/L Normal [facility] Comment on above: Performed By: #### C MP, LIPID #### [facility] [address] [address] [address] Bebeto Alvarado AST [Catalytic activity/Vol] 26 U/L Normal 15-37 [facility] Comment on above: Performed By: #### C MP, LIPID #### [facility] [address] [address] [address] Bebeto Alvarado Bilirubin [Mass/Vol] 0.3 mg/dL Normal 0.2-1.0 [facility] Comment on above: Performed By: #### C MP, LIPID #### [facility] [address] [address] [address] Bebeto Alvarado Calcium [Mass/Vol] 9.3 mg/dL Normal 8.5-10.1 [facility] Comment on above: Performed By: #### C MP, LIPID #### [facility] [address] [address] [address] Bebeto Alvarado Chloride [Moles/Vol] 107 mmol/L Normal 98-107 [facility] Comment on above: Performed By: #### C MP, LIPID #### [facility] [address] [address] [address] Bebeto Alvarado CO2 [Moles/Vol] 27.9 mmol/L Normal 21.0-32.0 [facility] Comment on above: Performed By: #### C MP, LIPID #### [facility] [address] [address] [address] Bebeto Alvarado Creatinine [Mass/Vol] 0.95 mg/dL Normal 0.55-1.02 [facility] Comment on above: Performed By: #### C MP, LIPID #### [facility] [address] [address] [address] Bebeto Alvarado EGFR-AF MONTENEGRIN >60 Normal >=60 [facility] Comment on above: Performed By: #### C MP, LIPID #### [facility] [address] [address] [address] Bebeto Alvarado EGFR-NON AF MONTENEGRIN 60 mL/min/1.73m2 Normal >=60 [facility] Comment on above: Performed By: #### C MP, LIPID #### [facility] [address] [address] [address] Bebeto Alvarado Globulin (S) [Mass/Vol] 3.9 g/dL Normal [facility] Comment on above: Performed By: #### C MP, LIPID #### [facility] [address] [address] [address] Bebeto Alvarado Glucose [Mass/Vol] 108 mg/dL Critically high 74-106 [facility] Comment on above: Performed By: #### C MP, LIPID #### [facility] [address] [address] [address] Bebeto Alvarado Potassium [Moles/Vol] 4.0 mmol/L Normal 3.5-5.1 [facility] Comment on above: Performed By: #### C MP, LIPID #### [facility] [address] [address] [address] Bebeto Alvarado Protein [Mass/Vol] 7.6 g/dL Normal 6.4-8.2 [facility] Comment on above: Performed By: #### C MP, LIPID #### [facility] [address] [address] [address] Bebeto Alvarado Sodium [Moles/Vol] 143 mmol/L Normal 136-145 [facility] Comment on above: Performed By: #### C MP, LIPID #### [facility] [address] [address] [address] Bebeto Alvarado Urea nitrogen [Mass/Vol] 15.0 mg/dL Normal 7.0-18.0 [facility] Comment on above: Performed By: #### C MP, LIPID #### [facility] [address] [address] [address] Bebeto Alvarado Urea nitrogen/Creatinine [Mass ratio] 15.8 mg/mg Normal [facility] Comment on above: Performed By: #### C MP, LIPID #### [facility] [address] [place] [address] Dr. Bebeto Alvarado UA RANDOM W/MICROSCOPICon BACTERIA NONE SEEN Normal NONE SEEN [facility] Comment on above: Performed By: #### A 1C #### [facility] [address] [place] [address] Dr. Bebeto Alvarado Bilirubin Ql (U) Negative Normal NEGATIVE [facility] Comment on above: Performed By: #### A 1C #### [facility] [address] [place] [address] Dr. Bebeto Alvarado CAST NONE SEEN Normal NONE SEEN [facility] Comment on above: Performed By: #### A 1C #### [facility] [address] [place] [address] Dr. Bebeto Alvarado Clarity (U) CLEAR Normal CLEAR [facility] Comment on above: Performed By: #### A 1C #### [facility] [address] [address] [address] Bebeto Alvarado Color (U) YELLOW Normal YELLOW [facility] Comment on above: Performed By: #### A 1C #### [facility] [address] [place] [address] Dr. Bebeto Alvarado Crystals LM Nom (Urine sed) NONE SEEN Normal NONE SEEN [facility] Comment on above: Performed By: #### A 1C #### [facility] [address] [place] [address] Dr. Bebeto Alvarado Epithelial cells LM Ql (Urine sed) NONE SEEN Normal NONE SEEN /RARE [facility] Comment on above: Performed By: #### A 1C #### [facility] [address] [address] [address] Bebeto Alvarado Glucose Ql (U) Negative Normal NEGATIVE [facility] Comment on above: Performed By: #### A 1C #### [facility] [address] [address] [address] Bebeto Alvarado Hemoglobin Ql (U) Negative Normal NEGATIVE [facility] Comment on above: Performed By: #### A 1C #### [facility] [address] [place] [address] Dr. Bebeto Alvarado Ketones Ql (U) Negative Normal NEGATIVE [facility] Comment on above: Performed By: #### A 1C #### [facility] [address] [place] [address] Dr. Bebeto Alvarado LEUKOCYTES Negative Normal NEGATIVE [facility] Comment on above: Performed By: #### A 1C #### [facility] [address] [place] [address] Dr. Bebeto Alvarado MUCOUS NONE SEEN Normal NONE SEEN [facility] Comment on above: Performed By: #### A 1C #### [facility] [address] [place] [address] Dr. Bebeto Alvarado Nitrite Ql (U) Negative Normal NEGATIVE [facility] Comment on above: Performed By: #### A 1C #### [facility] [address] [place] [address] Dr. Bebeto Alvarado pH (U) 5.5 [pH] Normal 5-9 [facility] Comment on above: Performed By: #### A 1C #### [facility] [address] [place] [address] Dr. Bebeto Alvarado RBC NONE SEEN Abnormal 0-2 [facility] Comment on above: Performed By: #### A 1C #### [facility] [address] [place] [address] Dr. Bebeto Alvarado SPEC GRAVITY 1.030 Abnormal 1.005-<=1.02 5 [facility] Comment on above: Performed By: #### A 1C #### [facility] [address] [address] [address] Bebeto Alvarado UA PROTEIN Negative Normal NEGATIVE/ TRACE [facility] Comment on above: Performed By: #### A 1C #### [facility] [address] [place] [address] Dr. Bebeto Alvarado Urobilinogen Qn (U) 0.2 {Katerin'U}/dL Normal 0.2 - 1. 0 [facility] Comment on above: Performed By: #### A 1C #### [facility] [address] [place] [address] Dr. Bebeto Alvarado WBC NONE SEEN Normal NONE SEEN [facility] Comment on above: Performed By: #### A 1C #### [facility] [address] [place] [address] Dr. Bebeto Alvarado VITAMIN B12on 07-25-2022 Cobalamin (Vitamin B12) [Mass/Vol] 1684.0 pg/mL Critically high 193.0-986.0 [facility] Comment on above: Performed By: #### V ITB12, IRON #### [facility] [address] [place] [address] Dr. Bebeto Alvarado PROF CHEM 8 (BAS METB)on Anion gap [Moles/Vol] 12.2 mmol/L Normal [facility] Comment on above: Performed By: #### B MP #### [facility] [address] [place] [address] Dr. Bebeto Alvarado Calcium [Mass/Vol] 8.9 mg/dL Normal 8.5-10.1 [facility] Comment on above: Performed By: #### B MP #### [facility] [address] [place] [address] Dr. Bebeto Alvarado Chloride [Moles/Vol] 105 mmol/L Normal 98-107 [facility] Comment on above: Performed By: #### B MP #### [facility] [address] [place] [address] Dr. Bebeto Alvarado CO2 [Moles/Vol] 29.6 mmol/L Normal 21.0-32.0 [facility] Comment on above: Performed By: #### B MP #### [facility] [address] [address] [address] Bebeto Alvarado Creatinine [Mass/Vol] 0.95 mg/dL Normal 0.55-1.02 [facility] Comment on above: Performed By: #### B MP #### [facility] [address] [address] [address] Bebeto Alvarado EGFR-AF MONTENEGRIN >60 Normal >=60 [facility] Comment on above: Performed By: #### B MP #### [facility] [address] [address] [address] Bebeto Alvarado EGFR-NON AF MONTENEGRIN 60 mL/min/1.73m2 Normal >=60 [facility] Comment on above: Performed By: #### B MP #### [facility] [address] [address] [address] Bebeto Alvarado Glucose [Mass/Vol] 101 mg/dL Normal 74-106 [facility] Comment on above: Performed By: #### B MP #### [facility] [address] [address] [address] Bebeto Alvarado Potassium [Moles/Vol] 3.8 mmol/L Normal 3.5-5.1 [facility] Comment on above: Performed By: #### B MP #### [facility] [address] [address] [address] Bebeto Alvarado Sodium [Moles/Vol] 143 mmol/L Normal 136-145 [facility] Comment on above: Performed By: #### B MP #### [facility] [address] [address] [address] Bebeto Alvarado Urea nitrogen [Mass/Vol] 16.0 mg/dL Normal 7.0-18.0 [facility] Comment on above: Performed By: #### B MP #### [facility] [address] [address] [address] Bebeto Alvarado Urea nitrogen/Creatinine [Mass ratio] 16.8 mg/mg Normal [facility] Comment on above: Performed By: #### B MP #### [facility] [address] [address] [address] Bebeto Alvarado CBC AUTO DIFFon 11-21-2021 BASO # 0.1 103/ul Normal 0.0-0.1 [facility] Comment on above: Performed By: #### A 1C #### [facility] [address] [place] [address] Dr. Bebeto Alvarado Basophils/100 WBC (Bld) 1.0 % Normal 0.2-2.0 [facility] Comment on above: Performed By: #### A 1C #### [facility] [address] [place] [address] Dr. Bebeto Alvarado EO # 0.2 103/ul Normal 0.0-0.7 [facility] Comment on above: Performed By: #### A 1C #### [facility] [address] [place] [address] Dr. Bebeto Alvarado Eosinophils/100 WBC (Bld) 3.3 % Normal 0.9-7.0 [facility] Comment on above: Performed By: #### A 1C #### [facility] [address] [place] [address] Dr. Bebeto Alvarado Erythrocyte distribution width (RBC) [Ratio] 13.8 % Normal 11.0-15.0 [facility] Comment on above: Performed By: #### A 1C #### [facility] [address] [place] [address] Dr. Bebeto Alvarado Hematocrit (Bld) [Volume fraction] 38.8 % Normal 36.0-48.0 [facility] Comment on above: Performed By: #### A 1C #### [facility] [address] [place] [address] Dr. Bebeto Alvarado Hemoglobin (Bld) [Mass/Vol] 12.5 g/dL Normal 12.0-16.0 [facility] Comment on above: Performed By: #### A 1C #### [facility] [address] [place] [address] Dr. Bebeto Alvarado IG # 0.02 10e3/ul Normal 0.00-0.03 [facility] Comment on above: Performed By: #### A 1C #### [facility] [address] [place] [address] Dr. Bebeto Alvarado IG % 0.3 % Normal 0.0-0.5 [facility] Comment on above: Performed By: #### A 1C #### [facility] [address] [place] [address] Dr. Bebeto Alvarado LYMPH # 1.9 103/ul Normal 1.2-3.8 [facility] Comment on above: Performed By: #### A 1C #### [facility] [address] [place] [address] Dr. Bebeto Alvarado Lymphocytes/100 WBC (Bld) 29.6 % Normal 20.5-60.0 [facility] Comment on above: Performed By: #### A 1C #### [facility] [address] [place] [address] Dr. Bebeto Alvarado MANUAL DIFF REQ NO Normal [facility] Comment on above: Performed By: #### A 1C #### [facility] [address] [place] [address] Dr. Bebeto Alvarado MCH (RBC) [Entitic mass] 28.0 pg Normal 26.7-34.0 [facility] Comment on above: Performed By: #### A 1C #### [facility] [address] [place] [address] Dr. Bebeto Alvarado MCHC (RBC) [Mass/Vol] 32.2 g/dL Normal 29.9-35.2 [facility] Comment on above: Performed By: #### A 1C #### [facility] [address] [place] [address] Dr. Bebeto Alvarado MCV (RBC) [Entitic vol] 86.8 fL Normal 81.0-99.0 [facility] Comment on above: Performed By: #### A 1C #### [facility] [address] [place] [address] Dr. Bebeto Alvarado MONO # 0.4 103/ul Normal 0.3-0.8 [facility] Comment on above: Performed By: #### A 1C #### [facility] [address] [place] [address] Dr. Bebeto Alvarado Monocytes/100 WBC (Bld) 5.7 % Normal 1.7-12.0 [facility] Comment on above: Performed By: #### A 1C #### [facility] [address] [place] [address] Dr. Bebeto Alvarado NEUT # 3.8 103/ul Normal 1.4-6.5 [facility] Comment on above: Performed By: #### A 1C #### [facility] [address] [place] [address] Dr. Bebeto Alvarado Neutrophils/100 WBC (Bld) 60.1 % Normal 43.0-75.0 [facility] Comment on above: Performed By: #### A 1C #### [facility] [address] [place] [address] Dr. Bebeto Alvarado Platelet mean volume (Bld) [Entitic vol] 11.0 fL Normal 9.5-13.5 [facility] Comment on above: Performed By: #### A 1C #### [facility] [address] [place] [address] Dr. Bebeto Alvarado PLT 264 103/ul Normal 150-450 [facility] Comment on above: Performed By: #### A 1C #### [facility] [address] [place] [address] Dr. Bebeto Alvarado RBC 4.47 106/ul Normal 4.20-5.40 [facility] Comment on above: Performed By: #### A 1C #### [facility] [address] [place] [address] Dr. Bebeto Alvarado WBC 6.3 103/ul Normal 4.0-11.0 [facility] Comment on above: Performed By: #### A 1C #### [facility] [address] [place] [address] Dr. Bebeto Alvarado GLYCOHEMOGLOBIN A1Con 2021 ADA RECOMMENDATION SEE BELOW Normal [facility] Comment on above: Result Comment: ADA RECOMMENDED LIMIT 4.0 - 6.0 ADA THERAPEUTIC TARGET < 7.0 ACTION SUGGESTED > 7.0 Performed By: #### A 1C #### [facility] [address] [place] [address] Dr. Bebeto Alvarado Glucose [Mass/Vol] 105 mg/dL Normal [facility] Comment on above: Performed By: #### A 1C #### [facility] [address] [place] [address] Dr. Bebeto Alvarado HbA1c (Bld) [Mass fraction] 5.3 % Normal 4.5-6.2 [facility] Comment on above: Performed By: #### A 1C #### [facility] [address] [place] [address] Dr. Bebeto Alvarado IRONon 11-21-2021 Iron [Mass/Vol] 59.0 ug/dL Normal 50.0-170.0 [facility] Comment on above: Performed By: #### A 1C #### [facility] [address] [place] [address] Dr. Bebeto Alvarado LIPID PROFILEon 11-21-2021 CHOL-HDL RATIO NORM SEE BELOW Normal [facility] Comment on above: Result Comment: 3.3 - 4.4 LOW RISK 4.4 - 7.1 AVERAGE RISK 7.1 - 11.0 MODERATE RISK >11.0 HIGH RISK Performed By: #### C MP, LIPID #### [facility] [address] [place] [address] Dr. Bebeto Alvarado Cholesterol [Mass/Vol] 139 mg/dL Normal <=200 [facility] Comment on above: Performed By: #### C MP, LIPID #### [facility] [address] [place] [address] Dr. Bebeto Alvarado Cholesterol in HDL [Mass/Vol] 35 mg/dL Critically low 40-60 [facility] Comment on above: Performed By: #### C MP, LIPID #### [facility] [address] [address] [address] Bebeto Alvarado Cholesterol in LDL [Mass/Vol] 69.6 mg/dL Normal [facility] Comment on above: Performed By: #### C MP, LIPID #### [facility] [address] [place] [address] Dr. Bebeto Alvarado Cholesterol.total/Chol esterol in HDL [Mass ratio] 4.0 {ratio} Normal [facility] Comment on above: Performed By: #### C MP, LIPID #### [facility] [address] [address] [address] Bebeto Alvarado HDL NORMAL > or = 60 mg/dl - LO W CARDIOVASCULAR RISK <40 mg/dl - HIGH CARDIOVASCULAR RISK Normal [facility] Comment on above: Performed By: #### C MP, LIPID #### [facility] [address] [address] [address] Bebeto Alvarado LDL CALC NORMAL SEE BELOW Normal [facility] Comment on above: Result Comment: <100 mg/dl OPTIMAL 100 - 129 mg/dl NEAR OR ABOVE OPTIMAL 130 - 159 mg/dl BORDERLINE HIGH 160 - 189 mg/dl HIGH >190 mg/dl VERY HIGH Performed By: #### C MP, LIPID #### [facility] [address] [place] [address] Dr. Bebeto Alvarado Triglyceride [Mass/Vol] 172 mg/dL Critically high <=150 [facility] Comment on above: Performed By: #### C MP, LIPID #### [facility] [address] [place] [address] Dr. Bebeto Alvarado VLDL CALC 34.4 mg/dL Normal [facility] Comment on above: Performed By: #### C MP, LIPID #### [facility] [address] [place] [address] Dr. Bebeto Alvarado PROF 14(COMP METB)on 022 Albumin [Mass/Vol] 3.8 g/dL Normal 3.4-5.0 [facility] Comment on above: Performed By: #### C MP, LIPID #### [facility] [address] [place] [address] Dr. Bebeto Alvarado Albumin/Globulin [Mass ratio] 1.1 {ratio} Normal [facility] Comment on above: Performed By: #### C MP, LIPID #### [facility] [address] [place] [address] Dr. Bebeto Alvarado ALP [Catalytic activity/Vol] 96 U/L Normal 46-116 [facility] Comment on above: Performed By: #### C MP, LIPID #### [facility] [address] [address] [address] Bebeto Alvarado ALT [Catalytic activity/Vol] 25 U/L Normal 14-59 [facility] Comment on above: Performed By: #### C MP, LIPID #### [facility] [address] [place] [address] Dr. Bebeto Alvarado Anion gap [Moles/Vol] 11.8 mmol/L Normal [facility] Comment on above: Performed By: #### C MP, LIPID #### [facility] [address] [place] [address] Dr. Bebeto Alvarado AST [Catalytic activity/Vol] 20 U/L Normal 15-37 [facility] Comment on above: Performed By: #### C MP, LIPID #### [facility] [address] [place] [address] Dr. Bebeto Alvarado Bilirubin [Mass/Vol] 0.4 mg/dL Normal 0.2-1.0 [facility] Comment on above: Performed By: #### C MP, LIPID #### [facility] [address] [place] [address] Dr. Bebeto Alvarado Calcium [Mass/Vol] 8.8 mg/dL Normal 8.5-10.1 [facility] Comment on above: Performed By: #### C MP, LIPID #### [facility] [address] [place] [address] Dr. Bebeto Alvarado Chloride [Moles/Vol] 106 mmol/L Normal 98-107 [facility] Comment on above: Performed By: #### C MP, LIPID #### [facility] [address] [place] [address] Dr. Bebeto Alvarado CO2 [Moles/Vol] 27.0 mmol/L Normal 21.0-32.0 [facility] Comment on above: Performed By: #### C MP, LIPID #### [facility] [address] [place] [address] Dr. Bebeto Alvarado Creatinine [Mass/Vol] 0.97 mg/dL Normal 0.55-1.02 [facility] Comment on above: Performed By: #### C MP, LIPID #### [facility] [address] [address] [address] Bebeto Alvarado EGFR-AF MONTENEGRIN >60 Normal >=60 [facility] Comment on above: Performed By: #### C MP, LIPID #### [facility] [address] [address] [address] Bebeto Alvarado EGFR-NON AF MONTENEGRIN 59 mL/min/1.73m2 Critically low >=60 [facility] Comment on above: Performed By: #### C MP, LIPID #### [facility] [address] [address] [address] Bebeto Alvarado Globulin (S) [Mass/Vol] 3.4 g/dL Normal [facility] Comment on above: Performed By: #### C MP, LIPID #### [facility] [address] [address] [address] Bebeto Alvarado Glucose [Mass/Vol] 103 mg/dL Normal 74-106 [facility] Comment on above: Performed By: #### C MP, LIPID #### [facility] [address] [address] [address] Bebeto Alvarado Potassium [Moles/Vol] 3.8 mmol/L Normal 3.5-5.1 [facility] Comment on above: Performed By: #### C MP, LIPID #### [facility] [address] [address] [address] Bebeto Alvarado Protein [Mass/Vol] 7.2 g/dL Normal 6.4-8.2 [facility] Comment on above: Performed By: #### C MP, LIPID #### [facility] [address] [address] [address] Bebeto Alvarado Sodium [Moles/Vol] 141 mmol/L Normal 136-145 [facility] Comment on above: Performed By: #### C MP, LIPID #### [facility] [address] [address] [address] Bebeto Alvarado Urea nitrogen [Mass/Vol] 11.0 mg/dL Normal 7.0-18.0 [facility] Comment on above: Performed By: #### C MP, LIPID #### [facility] [address] [place] [address] Dr. Bebeto Alvarado Urea nitrogen/Creatinine [Mass ratio] 11.3 mg/mg Normal [facility] Comment on above: Performed By: #### C MP, LIPID #### [facility] [address] [place] [address] Dr. Bebeto Alvarado URIC ACID SERUMon 11-21-2021 Urate [Mass/Vol] 7.3 mg/dL Critically high 2.6-6.0 [facility] Comment on above: Performed By: #### A 1C #### [facility] [address] [place] [address] Dr. Bebeto Alvarado VITAMIN B12on 11-21-2021 Cobalamin (Vitamin B12) [Mass/Vol] 2123.0 pg/mL Critically high 193.0-986.0 [facility] Comment on above: Performed By: #### A 1C #### [facility] [address] [place] [address] Dr. Bebeto Alvarado Physician Referralon 022 Physician Referral [phone] [id number] Normal [facility] KNEE RIGHT 1 OR 2 [facility] KNEE RIGHT 1 OR 2 S [facility] Department of Radiology [address] [place] [id number] ======== Patient Name: MCIHELLE BE : 1960 Sex: F Age: Race: White Pt. Location: Patient Status: O Ordered Date: 02/08/2019 10:40:00 AM Completed Date: 02/08/2019 10:38 AM Requesting Provider: AHSAN BINGHAM Attending Provider: AHSAN BINGHAM Report Copy To: Signs & Symptoms: S82.001A Unsp fracture of right patella, init for clos fx I10 History: [place] Comments: , , , Ordering Provider - [...] Electronically signed by:Debra Del Cid. Transcribed by: [email or web address], User Resident: Electronically Signed by: DEBRA DEL CID @ 02/08/2019 11:16 AM Normal [facility] Comment on above: Order Comment: , Rossie ws (X-RAY, KNEE): Radiologic Protocol , Weight Bearing?: N , With or Without Brace/Cast/Collar: With , Views (X-RAY, KNEE): Radiologic Protocol , Weight Bearing?: N , With or Without Brace/Cast/Collar: With , , , Ordering Provider - AHSAN BINGHAM PA-C , KNEE RIGHT 1 OR 2 [facility] KNEE RIGHT 1 OR 2 VWS [facility] Department of Radiology [address] [place] [address] ======== Patient Name: MICHELLE BE [...] , Exam: KNEE RIGHT 1 OR 2 [facility] ======== KNEE RIGHT 1 OR 2 S 12/07/2018 10:20 AM EDT SIGNS AND SYMPTOMS: [...] complications. Electronically signed by:Tomasz Stoll. Transcribed by: [email or web address], User Resident: Electronically Signed by: TOMASZ STOLL @ 12/07/2018 11:14 AM Normal [facility] Comment on above: Order Comment: , Vie ws (X-RAY, KNEE): Radiologic Protocol , Weight Bearing?: N , With or Without Brace/Cast/Collar: With , Views (X-RAY, KNEE): Radiologic Protocol , Weight Bearing?: N , With or Without Brace/Cast/Collar: With , , , Ordering Provider - AHSAN BINGHAM PA-C , KNEE RIGHT 1 OR 2 [facility] KNEE RIGHT 1 OR 2 [facility] Department of Radiology [address] [place] [phone] ======== Patient Name: MICHELLE BE : [...] osteoarthritis Electronically signed by:Anup Ellison. Transcribed by: [email or web address], User Resident: Electronically Signed by: ANUP ELLISON @ 10/06/2018 02:48 PM Normal [facility] Comment on above: Order Comment: , Vie ws (X-RAY, KNEE): Radiologic Protocol , Weight Bearing?: N , With or Without Brace/Cast/Collar: With , Views (X-RAY, KNEE): Radiologic Protocol , Weight Bearing?: N , With or Without Brace/Cast/Collar: With , , , Ordering Provider - AHSAN BINGHAM PA-C , KNEE RIGHT 1 OR 2 [facility] 08-05 KNEE RIGHT 1 OR 2 S [facility] Department of Radiology [address] [place] [phone] ======== Patient Name: MICHELLE BE : [...] effusion Electronically signed by:Anup Ellison. Transcribed by: [email or web address], User Resident: Electronically Signed by: ANUP ELLISON @ 08/26/2018 04:56 PM Normal [facility] Comment on above: Order Comment: , Mabel ws (X-RAY, KNEE): Radiologic Protocol , Weight Bearing?: N , With or Without Brace/Cast/Collar: With , Views (X-RAY, KNEE): Radiologic Protocol , Weight Bearing?: N , With or Without Brace/Cast/Collar: With , , , Ordering Provider - AHSAN BINGHAM PA-C , KNEE RIGHT 1 OR 2 [facility]on 07-06 KNEE RIGHT 1 OR 2 VWS [facility] Department of Radiology [address] [place] [phone] ======== Patient Name: MICHELLE BE : 1960 Sex: F Age: Race: White Pt. Location: Patient Status: Ordered Date: 07/29/2018 2:10:00 PM Completed Date: 07/29/2018 02:12 PM Requesting Provider: AHSAN BINGHAM Attending Provider: Report Copy To: Signs & Symptoms: S82.001A Unsp fracture of right patella, init for clos fx I10 History: [place] Comments: , , , Ordering Provider - [...] compartment Electronically signed by:Anup Ellison. Transcribed by: [email or web address], User Resident: Electronically Signed by: ANUP ELLISON @ 07/29/2018 03:41 PM Normal [facility] Comment on above: Order Comment: , Mabel ws (X-RAY, KNEE): Radiologic Protocol , Weight Bearing?: N , With or Without Brace/Cast/Collar: With , Views (X-RAY, KNEE): Radiologic Protocol , Weight Bearing?: N , With or Without Brace/Cast/Collar: With , , , Ordering Provider - AHSAN BINGHAM PA-C , KNEE RIGHT 3 [facility] 9 KNEE RIGHT 3 [facility] Department of Radiology [address] [place] [phone] ======== Patient Name: MICHELLE BE : 1960 Sex: F Age: Race: White Pt. Location: 84 Patient Status: Ordered Date: 07/15/2018 8:45:00 AM Completed Date: 07/15/2018 08:47 AM Requesting Provider: AHSAN BINGHAM Attending Provider: Report Copy To: Signs & Symptoms: S82.001A Unsp fracture of right patella, init for clos fx I10 History: [place] Comments: , , , Ordering Provider - [...] knee Electronically signed by:Anup Ellison. Transcribed by: [email or web address], User Resident: Electronically Signed by: ANUP ELLISON @ 07/15/2018 03:31 PM Normal [facility] Comment on above: Order Comment: , Mabel ws (X-RAY, KNEE): Radiologic Protocol , Weight Bearing?: N , With or Without Brace/Cast/Collar: With , Views (X-RAY, KNEE): Radiologic Protocol , Weight Bearing?: N , With or Without Brace/Cast/Collar: With , , , Ordering Provider - AHSAN BINGHAM PA-C , Operative Reporton 9 Operative Report MR#: [id number] [facility] Pt. Name: Michelle Be Room #: [...] Duarte MD Date Trans: 07/03/2018 04:28 Monse/terry [id number] Normal [facility] *ANAEROBIC CULTUREon 019 *ANAEROBIC CULTURE Clinical Report: (D) Specimen/Source: SWAB/RT KNEE Collected: 07/02/2018 13:53 Status: Final Last Updated: 07/07/2018 08:02 CULT RES (Final) No Anaerobes Isolated 5 Days Normal [facility] Comment on above: Performed By: #### 3 0312 #### [address] [address], [facility] *WOUND CULTUREon 07-02-2018 *WOUND CULTURE Clinical Report: (D) Specimen/Source: WOUND/INTRAOP SPEC Collected: 07/02/2018 13:53 Status: Final Last Updated: 07/07/2018 10:13 (1) #1 RT KNEE GRAM (Final) Rare Polys No Bacteria Seen CULT RES (Final) No Growth Day 5 Normal [facility] Comment on above: Order Comment: #1 RT KNEE Performed By: #### 3 0343 #### [address] [address], [facility] KNEE RIGHT 1 OR 2 [facility] 06-05 KNEE RIGHT 1 OR 2 [facility] Department of Radiology [address] [place] [phone] ======== Patient Name: MICHELLE BE : 1960 [...] PATELLA Exam: KNEE RIGHT 1 OR 2 [facility] ======== KNEE RIGHT 1 OR 2 [...] Electronically signed by:Debra Del Cid. Transcribed by: [email or web address], User Resident: Electronically Signed by: DEBRA DEL CID @ 07/02/2018 02:03 PM Normal [facility] Comment on above: Order Comment: ORIF VS PERCUTANEOUS FIXATION RIGHT PATELLA POC GLUCOSE LABon 07-02-2018 Glucose [Mass/Vol] 108 mg/dL High 70-100 [facility] Comment on above: Performed By: #### 8 5499 #### [facility] [address] APTTon 06-30-2018 aPTT Coag (Bld) [Time] 30.6 s Normal 25.0-35.0 [facility] Comment on above: Result [...] THIS PURPOSE. Performed By: #### 5 6101, [address] #### [facility] [address] [facility] [address], [facility] BASIC METABOLIC PANELon 06-05 Calcium [Mass/Vol] 9.7 mg/dL Normal 8.6-10.3 [facility] Comment on above: Performed By: #### 0 0071 #### [facility] [address] [facility] [address], [facility] Chloride [Moles/Vol] 102 mmol/L Normal 98-107 [facility] Comment on above: Performed By: #### 0 0071 #### [facility] [address] [place] [address], [place] CO2 [Moles/Vol] 28 mmol/L Normal 21-31 [facility] Comment on above: Performed By: #### 0 0071 #### [facility] [address] [place] [address], [place] Creatinine [Mass/Vol] 1.20 mg/dL Normal 0.60-1.20 [facility] Comment on above: Performed By: #### 0 0071 #### [facility] [address] [place] [address], [place] GFR/1.73 sq M predicted among blacks MDRD (S/P/Bld) [Vol rate/Area] 56 ml/min/1.73sq m Abnormal >60 [facility] Comment on above: Performed By: #### 0 0071 #### [facility] [address] [place] [address], [place] GFR/1.73 sq M predicted among non-blacks MDRD (S/P/Bld) [Vol rate/Area] 47 ml/min/1.73sq m Abnormal >60 [facility] Comment on above: Performed By: #### 0 0071 #### [facility] [address] [place] [address], [place] Glucose [Mass/Vol] 97 mg/dL Normal 70-100 [facility] Comment on above: Performed By: #### 0 0071 #### [facility] [address] [place] [address], [place] Potassium [Moles/Vol] 4.1 mmol/L Normal 3.5-5.1 [facility] Comment on above: Performed By: #### 0 0071 #### [facility] [address] [place] [address], [place] Sodium [Moles/Vol] 137 mmol/L Normal 136-145 [facility] Comment on above: Performed By: #### 0 0071 #### [facility] [address] Urea nitrogen [Mass/Vol] 19 mg/dL Normal 7-25 [facility] Comment on above: Performed By: #### 0 0071 #### [facility] [address] CBC W/DIFFon 06-30-2018 ABS BASOPHILS 0.1 10*3/uL Normal 0.0-0.2 [facility] Comment on above: Performed By: #### 5 0103 #### [facility] [address] ABS IMM GRANS 0.0 10*3/uL Normal 0.0-0.2 [facility] Comment on above: Performed By: #### 5 3 #### [facility] [address] ABS NEUTROPHILS 6.4 10*3/uL Normal 1.6-7.6 [facility] Comment on above: Performed By: #### 5 0103 #### [facility] [address] Basophils/100 WBC (Bld) 0.7 % Normal 0.0-1.0 [facility] Comment on above: Performed By: #### 5 3 #### [facility] [address] Eosinophils (Bld) [#/Vol] 0.2 10*3/uL Normal 0.0-0.5 [facility] Comment on above: Performed By: #### 5 3 #### [facility] [address] [place] [address], [facility] Eosinophils/100 WBC (Bld) 1.5 % Normal 0.0-6.0 [facility] Comment on above: Performed By: #### 5 0103 #### [facility] [address] [facility] [address] Erythrocyte distribution width (RBC) [Ratio] 14.4 % Normal 11.5-15.0 [facility] Comment on above: Performed By: #### 102 #### [facility] [address] [facility] [address] Hematocrit (Bld) [Volume fraction] 40.6 % Normal 36.0-45.0 [facility] Comment on above: Performed By: #### 102 #### [facility] [address] Hemoglobin (Bld) [Mass/Vol] 13.3 g/dL Normal 12.0-15.0 [facility] Comment on above: Performed By: #### 102 #### [facility] [address] IMMATURE GRANS 0.4 % Normal 0.0-1.0 [facility] Comment on above: Performed By: #### 102 #### [facility] [address] Lymphocytes (Bld) [#/Vol] 2.6 10*3/uL Normal 1.2-4.0 [facility] Comment on above: Performed By: #### 5 3 #### [facility] [address] Lymphocytes/100 WBC (Bld) 26.5 % Normal 20.0-45.0 [facility] Comment on above: Performed By: #### 5 3 #### [facility] [address] MCH (RBC) [Entitic mass] 27.4 pg Normal 27.0-33.0 [facility] Comment on above: Performed By: #### 102 #### [facility] [address] [facility] MCHC (RBC) [Mass/Vol] 32.8 g/dL Normal 32.0-35.0 [facility] Comment on above: Performed By: #### 5 0103 #### [facility] [address] [facility] [address], [facility] MCV (RBC) [Entitic vol] 83.5 fL Normal 82.0-98.0 [facility] Comment on above: Performed By: #### 5 0103 #### [facility] [address] [place] [address], [facility] Monocytes (Bld) [#/Vol] 0.5 10*3/uL Normal 0.1-1.0 [facility] Comment on above: Performed By: #### 0103 #### [facility] [address] MONOS 5.0 % Normal 5.0-12.0 [facility] Comment on above: Performed By: #### 5 0103 #### [facility] [address] [place] [address], [facility] Neutrophils/100 WBC (Bld) 65.9 % Normal 40.0-72.0 [facility] Comment on above: Performed By: #### 5 3 #### [facility] [address] [place] [address], [facility] Nucleated RBC/100 WBC (Bld) [Ratio] 0 % Normal 0-0 [facility] Comment on above: Performed By: #### 5 0103 #### [facility] [address] [facility] [address], [facility] PLAT CNT 290 10*3/uL Normal 150-400 [facility] Comment on above: Performed By: #### 3 #### [facility] [address] [facility] [address], [facility] RBC (Bld) [#/Vol] 4.86 10*6/uL Normal 3.80-5.00 [facility] Comment on above: Performed By: #### 5 0103 #### [address] WBC (Bld) [#/Vol] 9.68 10*3/uL Normal 4.00-10.60 [facility] Comment on above: Performed By: #### 5 0103 #### [facility] [address] [place], [place] [address] [place] [address] KNEE RIGHT 1 OR 2 VWSon 06-05 KNEE RIGHT 1 OR 2 S [facility] Department of Radiology [address] [place] [phone] ======== Patient Name: MICHELLE BE : [...] Electronically signed by:Debra Del Cid. Transcribed by: [email or web address], User Resident: Electronically Signed by: DEBRA DEL CID @ 06/30/2018 11:52 AM Normal [facility] Comment on above: Order Comment: , Mabel ws (X-RAY, KNEE): Radiologic Protocol , Weight Bearing?: N , With or Without Brace/Cast/Collar: With , Views (X-RAY, KNEE): Radiologic Protocol , Weight Bearing?: N , With or Without Brace/Cast/Collar: With , , , Ordering Provider - AHSAN BINGHAM PA-C , PROTHROMBIN TIMEon 9 INR Coag (PPP) [Relative time] 0.98 {INR} Normal 0.91-1.16 [facility] Comment on above: Result Comment: ACCC P [...] CHEST 1995;[id number]. Performed By: #### 5 6101, [address] #### [address] PT Coag (PPP) [Time] 13.0 s Normal 12.3-14.8 [facility] Comment on above: Result Comment: ALL RESULTS MUST BE INTERPRETED WITH RESPECT TO BLOOD DRAWING ARTIFACT OR DILUTION ERROR OF ANTICOAGULANT AT THE TIME OF SAMPLING. Performed By: #### 5 6101, [address] #### [address] KNEE RIGHT 3 [facility] 9 KNEE RIGHT 3 [facility] Department of Radiology [address] [place] [phone] ======== Patient Name: MICHELLE BE : 1960 Sex: F Age: Race: White Pt. Location: 84 Patient Status: O Ordered Date: 06/15/2018 1:35:00 PM Completed Date: 06/15/2018 01:34 PM Requesting Provider: AMPARO ZHANG Attending Provider: AMPARO ZHANG Report Copy To: ADELAIDA CARRION Signs & Symptoms: M17.11 Unilateral primary osteoarthritis, right knee I10 History: [place] Comments: , Weight Bearing?: Y , Weight Bearing?: Y , , , Ordering Provider - AMPARO ZHANG PA-C , Exam: KNEE RIGHT 3 [facility] ======== KNEE RIGHT 3 [facility] 06/15/2018 1:34 PM EDT SIGNS AND [...] effusion Electronically signed by:Anup Ellison. Transcribed by: [email or web address], User Resident: Electronically Signed by: ANUP ELLISON @ 06/15/2018 03:50 PM [place] [facility] Comment on above: Order Comment: , Isaiah ght Bearing?: Y , Weight Bearing?: Y , , , Ordering Mariela - AMPARO ZHANG PA-C , Vital Signs Date Time Vital Sign Value Performing Clinician Facility 05-18-2023 16:30-0500 Body height 162.6 cm Adelaida Aichholz CERT PHARMACY TECH Work Phone: [facility] 05-18-2023 16:30-0500 Body mass index (BMI) [Ratio] 47.89 kg/m2 Adelaida Aichholz CERT PHARMACY TECH Work Phone: [facility] 05-18-2023 16:30-0500 Body temperature 97.3 [degF] Adelaida Aichholz CERT PHARMACY TECH Work Phone: [facility] 05-18-2023 16:30-0500 Body weight 126.55 kg Adelaida Aichholz CERT PHARMACY TECH Work Phone: [facility] 05-18-2023 16:30-0500 Diastolic blood pressure 80 mm[Hg] Adelaida Aichholz CERT PHARMACY TECH Work Phone: [facility] 05-18-2023 16:30-0500 Heart rate 76 /min Adelaida Aichholz CERT PHARMACY TECH Work Phone: [facility] 05-18-2023 16:30-0500 Respiratory rate 19 /min Adelaida Aichholz CERT PHARMACY TECH Work Phone: [facility] 05-18-2023 16:30-0500 SaO2% (BldA) [Mass fraction] 97 % Adelaida Aichholz CERT PHARMACY TECH Work Phone: [facility] 05-18-2023 16:30-0500 Systolic blood pressure 134 mm[Hg] Adelaida Aichholz CERT PHARMACY TECH Work Phone: [facility] 03-23-2023 12:10-0500 Diastolic blood pressure 98 mm[Hg] Adelaida Aichholz Work Phone: [facility] 03-23-2023 12:10-0500 Heart rate 76 /min Adelaida Aichholz Work Phone: [facility] 03-23-2023 12:10-0500 Respiratory rate 18 /min Adelaida Carrion Work Phone: [facility] 03-23-2023 12:10-0500 SaO2% (BldA) [Mass fraction] 99 % Adelaida Carrion Work Phone: [facility] 03-23-2023 12:10-0500 Systolic blood pressure 162 mm[Hg] Adelaida Carrion Work Phone: [facility] 03-23-2023 10:53-0500 Body height 162.56 cm Adelaida Carrion Work Phone: [facility] 03-23-2023 10:53-0500 Body weight 125.64 kg Adelaida Carrion Work Phone: [facility] 12-19-2022 14:55-0400 Body height 162.56 cm Rosemary Vernonmond Other [facility] Other 12-19-2022 14:55-0400 Body mass index (BMI) [Ratio] 47.85 kg/m2 Rosemary Marita Other [facility] Other 12-19-2022 14:55-0400 Body temperature 97.8 [degF] Rosemary Marita Other [facility] Other 12-19-2022 14:55-0400 Body weight 126.46 kg Rosemary Vernonmond Other [facility] Other 12-19-2022 14:55-0400 Respiratory rate 20 /min Rosemary Marita Other [facility] Other 12-19-2022 14:55-0400 SaO2% (BldA) [Mass fraction] 95 % Rosemary Kirkland Other [facility] Other 11-20-2022 13:12-0400 Body temperature 97.7 [degF] Adelaida Aichholz Work Phone: [facility] 11-20-2022 13:12-0400 SaO2% (BldA) [Mass fraction] 96 % Adelaida Aichholz Work Phone: [facility] 11-20-2022 07:44-0400 Diastolic blood pressure 90 mm[Hg] Adelaida Aichholz Work Phone: [facility] 11-20-2022 07:44-0400 Heart rate 103 /min Adelaida Aichholz Work Phone: [facility] 11-20-2022 07:44-0400 Systolic blood pressure 152 mm[Hg] Adelaida Aichholz Work Phone: [facility] 11-19-2022 20:00-0400 Respiratory rate 18 /min Adelaida Aichholz Work Phone: [facility] 11-18-2022 15:18-0400 Body height 162.56 cm Adelaida Aichholz Work Phone: [facility] 11-17-2022 09:00-0400 Body weight 122.92 kg Adelaida Aichholz Work Phone: [facility] Encounters Encounter Date Encounter Type Care Provider Facility Start: 08-20-2023 ambulatory Eduardo Acevedo acility:[facility] Start: 08-17-2023 End: 08-17-2023 ambulatory ADELAIDA AICHHOLZ Not Available Start: 07-23-2023 End: 07-23-2023 ambulatory ADELAIDA AICHHOLZ Not Available Start: 07-07-2023 End: 07-07-2023 ambulatory ADELAIDA AICHHOLZ Not Available Start: 06-29-2023 End: 06-30-2023 ambulatory Syeda Mancuso MD Facility: [facility] Start: 05-22-2023 End: 05-22-2023 ambulatory ASHLEIGH Tabby HINES Not Available Start: 05-21-2023 Refill Adelaida Carrion CERT PHARMACY TECH Work Phone: [facility] CW FM Comment on above: Acute cystitis with hematuria (Primary Dx) Start: 05-18-2023 End: 05-18-2023 ambulatory ADELAIDA CARRION Not Available Start: 05-18-2023 End: 05-18-2023 Office outpatient visit 25 minutes Adelaida Carrion CERT PHARMACY TECH Work Phone: [facility] CW FM Comment on above: Encounter for annual wellness visit (AWV) in Medicare patient (Primary Dx); OSMANY (obstructive sleep apnea); Chronic pain disorder; Gastroesophageal reflux disease, unspecified whether esophagitis present; Overactive bladder; Lower extremity edema; Pre-diabetes; Morbid obesity (CMS/[facility]); Yeast infection of the skin; Tobacco dependence; Mood disorder ([facility]); Primary hypertension ([facility]); Left hip pain; Open wound of anterior abdominal wall, initial encounter Start: 05-18-2023 Bamboo flowsheet Adelaida Carrion CERT PHARMACY TECH Work Phone: [facility] CWM FM Start: 05-18-2023 Bamboo flowsheet Adelaida Carrion CERT PHARMACY TECH Work Phone: [facility] Start: 05-18-2023 End: 05-18-2023 Patient encounter procedure Adelaida Carrion CERT PHARMACY TECH Work Phone: [facility] Start: 03-25-2023 End: 03-25-2023 ambulatory ADELAIDA CARRION Not Available Start: 03-23-2023 End: 03-23-2023 Admission to same day surgery center Adelaida Carrion Work Phone: [facility] Work Phone: Start: 03-23-2023 End: 03-23-2023 ambulatory Adelaida Carrion Work Phone: [facility] Work Phone: Start: 03-11-2023 End: 03-11-2023 ambulatory KALLI INTERIANO Not Available Start: 02-20-2023 End: 02-20-2023 ambulatory ASHLEIGH HINES Not Available Start: 02-12-2023 End: 02-12-2023 ambulatory Jace Graham Other TBS Other Start: 02-12-2023 Telephone encounter Jace CORADO G Tour Operator Start: 12-19-2022 End: 12-19-2022 ambulatory Rosemary Kirkland Other TBS Other Start: 12-19-2022 Office outpatient ne w 10 minutes Rosemary Kirkland [facility] [place] Start: 11-17-2022 End: 11-20-2022 Evaluation and management of inpatient Adelaida Aichholz Work Phone: [facility] Work Phone: Start: 09-04-2022 ambulatory ARIAN JOHNSON . Facili ty:H1 Start: 08-26-2022 ambulatory NARENDRANATH LAKSHMIPATHY . Facility:H1 Start: 08-08-2022 End: 08-09-2022 ambulatory SECTION 8 PROPERTY MANAGER ADELAIDA AICHHOLZ Facility:H1 Start: 07-25-2022 End: 07-26-2022 ambulatory SECTION 8 PROPERTY MANAGER ADELAIDA AICHHOLZ Facility:H1 Start: 07-15-2022 End: 07-15-2022 ambulatory NARENDRANATH LAKSHMIPATHY . Facility:H1 Start: 07-11-2022 ambulatory NARENDRANATH LAKSHMIPATHY . Facility:H1 Start: 06-26-2022 End: 06-27-[address] FINA ZIMMER . Facility:H1 Start: 06-11-2022 ambulatory SECTION 8 PROPERTY MANAGER ADELAIDA AICHHOLZ Facil ity:H1 Start: 05-21-2022 End: 06-11-2022 ambulatory SECTION 8 PROPERTY MANAGER ADELAIDA AICHHOLZ Facility:H1 Start: 05-08-2022 End: 05-09-2022 ambulatory SECTION 8 PROPERTY MANAGER ADELAIDA JOSE ALBERTOMarquesRHONDA Facility:H1 Start: 04-28-2022 End: 04-28-2022 ambulatory LIVIER DEMPSEYMonse CARRION Facility:H1 Start: 04-03-2022 End: 04-04-[address] FINA ZIMMER . Facility:H1 Start: 03-19-2022 End: 03-20-2022 ambulatory LIVIER DEMPSEYMonse CARRION Facility:H1 Start: 02-20-2022 End: 02-20-2022 ambulatory GILMER PURA Facility:H1 Start: 01-10-2022 End: 02-12-2022 [facility] Start: 01-02-2022 End: 01-03-[address] FINA ZIMMER . Facility:H1 Start: 01-01-2022 End: 01-02-2022 ambulatory [facility] Facility[facility] Start: 12-16-2021 End: 12-16-2021 ambulatory LIVIER ADELAIDA CARRION Facility:H1 Start: 11-21-2021 End: 11-22-[address] DOCTOR BERGERON Facility:H1 Start: 10-03-2021 End: 10-04-[address] FINA ZIMMER . Facility:H1 Start: 09-19-[address] FINA ZIMMER . Faci lity:H1 Start: 09-12-2021 End: 09-12-2021 ambulatory LIVIER ADELAIDA CARRION Facility:H1 Start: 08-20-2021 End: 08-20-[address] FINA ZIMMER . Facility:H1 Start: 07-02-2018 End: 07-03-2018 Patient encounter procedure SUKI ESCALANTE Facility:[facility] Procedures Date Procedure Procedure Detail Performing Clinician Start: 03-23-2023 Screening colonoscopy L onealmonse Carrion Work Phone: Start: 03-23-2023 Colonoscopy Adelaida ramos CERT PHARMACY TECH Work Phone: Start: 09-15-2022 Mammography Adelaida ramos CERT PHARMACY TECH Work Phone: Start: 08-28-2022 Microscopic observat ion [Identifier] in Cervix by Cyto stain Adelaida Carrion CERT PHARMACY TECH Work Phone: Start: 07-02-2018 ANESTH KNEE AREA SURGERY CHAPARRITA HENDRICKS Start: 07-02-2018 REMOVAL OF SUPPORT IMPLANT SUKI ELYMORENO Start: 07-02-2018 TREAT KNEECAP FRACTURE SUKI ESCALANTE Plan of Treatment Date Care Activity Detail Author Start: 03-23-2033 Screening for malignant neoplasm of colon [facility] Start: 08-28-2025 Screening for malignant neoplasm of cervix [facility] Start: 05-18-2024 Medicare Annual Wellness (AWV) Medicare Annual Wellness (AWV) [facility] Start: 09-16-2023 Screening for malignant neoplasm of breast Mammogram [facility] Start: 08-17-2023 End: 08-17-2023 Patient encounter procedure 08/17/2023 9:20 AM EDT Office Visit [facility] [address] [place] [address] Adelaida Carrion NP [address] [place] [phone] [facility] Start: 05-22-2023 End: 05-22-2023 Patient encounter procedure 05/22/2023 8:45 AM EST Office Visit [facility] [address] [facility] [address] [place] [address] Ashleigh Hines PA [address] [facility] [address] [place] [address] [facility] Start: 05-18-2023 End: 05-18-2023 Patient encounter procedure 05/18/2023 4:30 PM EST Office Visit [facility] [address] [place] [address] Adelaida Carrion NP [address] [place] [phone] [facility] Comment on above: Arrived Start: 05-18-2023 End: 05-18-2024 XR Hip - left 3 Views XR hip left 2 or 3 views Imaging Routine Left hip pain Expected: 05/18/2023 (Approximate), Expires: 05/18/2024 [facility] Work Phone: Comment on above: Expected: 05/18/2023 (Approximate), Expires: 05/18/2024 Start: 03-23-2023 [facility] Start: 11-20-2022 [facility] Start: 11-18-2022 Referral to clinical digital computer systems analyst [facility] Start: 11-17-2022 Hospital admission [facility] Start: 11-17-2022 [facility] Start: 12-06-1991 Screening for malignant neoplasm of cervix HPV/Cotest [facility] Start: 1960 Medicare Annual Wellness (AWV) Medicare Annual Wellness (AWV) [facility] Start: 1960 Screening for malignant neoplasm of colon [facility] Patient Education [facility] Work Phone: Patient referral [facility] Work Phone: [facility] Immunizations Immunization Date Immunization Notes Care Provider [facility] 02-13-2023 influenza, injectabl e, quadrivalent, preservative free Adelaida Sheyla CERT PHARMACY TECH Work Phone: [facility] 02-13-2023 SARS-COV-2 (COVID-19 ) vaccine, mRNA, spike protein, LNP, PF, 50 mcg/0.5 mL Adelaida Kelsiez CERT PHARMACY TECH Work Phone: [facility] 02-19-2022 diphtheria, tetanus toxoids and pertussis vaccine Adelaida Aichholz CERT PHARMACY TECH Work Phone: [facility] 03-02-2021 Moderna SARS-CoV-2 Vaccination Adelaida Aichholz CERT PHARMACY TECH Work Phone: [facility] 08-24-2020 Moderna SARS-CoV-2 Vaccination Adelaida Aichholz CERT PHARMACY TECH Work Phone: [facility] 07-27-2020 Moderna SARS-CoV-2 Vaccination Adelaida Aichholz CERT PHARMACY TECH Work Phone: [facility] 05-28-2018 influenza, injectabl e, quadrivalent, preservative free Adelaida Carrion Work Phone: [facility] Payers Date Payer Category Payer Medicare [id number] 2022 Private Health Insurance [id number] 2022 Self-pay [id number] 2022 Medicare [id number] 2008 Unknown [id number] 1961 Unknown [id number] 2.16.8 40.1.636873.3.579.2.647 1961 Unknown [id number] 2.16.84 0.1.899284.3.579.2.593 1961 Unknown [id number] 2.16.84 0.1.952859.3.579.2.593 1961 Unknown [id number] 2.16.84 0.1.218885.3.579.2.593 1961 Unknown [id number] 2.16.84 0.1.478400.3.579.2.593 1961 Unknown [id number] 2.16.84 0.1.347911.3.579.2.593 1961 Unknown [id number] 2.16.84 0.1.396184.3.579.2.593 1961 Unknown [id number] 2.16.84 0.1.514936.3.579.2.593 1961 Unknown [id number] 2.16.84 0.1.819166.3.579.2.593 1961 Unknown [id number] 2.16.84 0.1.583414.3.579.2.593 1961 Unknown [id number] 2.16.84 0.1.698299.3.579.2.593 1961 Unknown [id number] 2.16.84 0.1.167803.3.579.2.593 1961 Unknown [id number] 2.16.84 0.1.349727.3.579.2.593 1961 Unknown [id number] 2.16.84 0.1.604370.3.579.2.593 1961 Unknown [id number] 2.16.84 0.1.130197.3.579.2.593 1961 Unknown [id number] 2.16.84 0.1.868976.3.579.2.593 1961 Unknown [id number] 2.16.84 0.1.056816.3.579.2.593 1961 Unknown [id number] 2.16.84 0.1.839108.3.579.2.593 1961 Unknown [id number] 2.16.84 0.1.326418.3.579.2.593 1961 Unknown [id number] 2.16.84 0.1.721674.3.579.2.593 1961 Unknown [id number] 2.16.84 0.1.387236.3.579.2.593 1961 Unknown [id number] 2.16.84 0.1.312002.3.579.2.593 1961 Unknown [id number] 2.16.84 0.1.447565.3.579.2.593 1961 Unknown [id number] 2.16.84 0.1.135932.3.579.2.593 1961 Unknown [id number] 2.16.84 0.1.595897.3.579.2.593 1961 Unknown [id number] 2.16. 840.1.647775.3.579.2.196 1961 Unknown [id number] 2.16.84 0.1.336821.3.579.2.1259 1961 Unknown [id number] 2.16.84 0.1.607283.3.579.2.1259 1961 Unknown [id number] 2.16.84 0.1.308414.3.579.2.1259 1961 Unknown [id number] 2.16.84 0.1.735592.3.579.2.1259 1961 Unknown [id number] 2.16.84 0.1.063626.3.579.2.1259 1961 Unknown [id number] 2.16.840 .1.996059.3.579.2.1259 1961 Unknown [id number] 2.16.840 .1.610095.3.579.2.1259 1961 Unknown [id number] 2.16.840 .1.219271.3.579.2.1259 1959 Medicare [id number] 1959 Unknown [id number] Unknown [id number] 2.16.8 40.1.967107.3.579.2.531 Unknown [id number] 2.16.8 40.1.019598.3.579.2.531 Unknown [id number] 2.16.8 40.1.808722.3.579.2.531 Social History Date Type Detail Facility Start: 11-18-2022 End: 02-09-2023 Tobacco smoking status IAIS Ex-smoker (finding) [facility] Start: 1960 Sex Assigned At Female [facility] Start: 03-25-2023 End: 05-18-2023 Sex Assigned At [facility] End: 04-06-2016 History of tobacco use Current smoker [facility] End: 04-06-2016 History of tobacco [...] Facility 11-20-2022 Functional status Patient at Baseline [facility] Work Phone: Mental Status Date Assessment Result Facility 11-20-2022 Cognitive function Cognitive Sta tus Patient is Progressing Toward Baseline [facility] Work Phone: Clinical Notes 10-03-2021 to [...] (BARIATRIC MULTIVITAMINS/IRON PO) Bariatric Multivitamins/Iron nystatin (Mycostatin) 698306 UNIT/GM powder 1 application , Topical, 2 [...] murmur Hematoma of right breast Hemiparesis, right ([facility]) Hemorrhoid int/external hemorrhoids Hiatal hernia Iron deficiency Left foot pain 03/25/2023 Lower extremity edema Mood disorder ([facility]) mixed mood disorder OSMANY (obstructive sleep apnea) Osteoporosis ([facility]) Overactive bladder Pre-diabetes Primary hypertension ([facility]) 03/25/2023 PTSD (post-traumatic stress disorder) ([facility]) Restless leg Right knee pain Right sided weakness S/P bariatric surgery Shingles Slurred speech Stroke ([facility]) 2018 Tenosynovitis, de Quervain Thoracic back pain, unspecified back pain laterality, unspecified chronicity Tobacco dependence Vertigo, benign paroxysmal Yeast infection of the skin 05/18/2023 Past Surgical History: Procedure Laterality Date APPENDECTOMY BREAST LUMPECTOMY Right SECTION, LOW TRANSVERSE x2 CHOLECYSTECTOMY COLONOSCOPY 2012 DENTAL IMPLANT DILATION AND CURETTAGE OF UTERUS [...] yearly and prn documented in this encounter [facility] 03-23-2023 Procedure note [facility] 12-19-2022 Evaluation note Encounter Date Diagnosis Assessment Notes Dec, Skin candidiasis (ICD-10 - B37.2) Drink plenty fluids, get plenty of rest. Continue home medications as prescribed. Take the Diflucan as prescribed until gone. Follow-up with your family physician if no improvement in 2 to 3 days TBS Other 08-17-2023 Discharge summary Author Eduardo bautista [facility] November 20, 2022 6:38am Note Date/Time November 20, 2022 6: 38am [facility] [address] [place] [address] Discharge Summary Signed Patient: Michelle Be MR#: [id number] : 1960 Acct:[id number] Age/Sex: 61 / F Adm Date: 3 Loc: Room: [address] [place] [address]: Gaudencio Monk MD Copies to: MD Adelaida Álvarez, CERT PHARMACY TECH-C~ Providers Date of Discharge: 11/20/22 Discharging Provider: [...] that time.? She reports moving to [place] from [place] in 2011 and was then diagnosed with bipolar disorder at [facility] in [place], where she still follows with a therapist.? Shereports that she has been with 7 therapists in the last 9 years and is currentlycompleting EMDR with her current therapist. Past hospitalizations: Her most recent hospitalization was 5 years ago [place] in [place] for the same feeling she is experiencing [...] worked since 2010 due to her fibromyalgia.? [facility]. 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 (insert date/time here) [...] signed by Eduardo Monk MD> 11/20/22 0638 [facility] Work Phone: 1(721) 261-265408-16-2023 Progress note Author Eduardo bautista [facility] November 19, 2022 6:25am Note Date/Time November 19, 2022 6: 25am [facility] [address] [place] [address] Psychiatry Progress Note Signed Patient: Michelle Be MR#: [id number] : 1960 Acct:[id number] Age/Sex: 61 / F Adm Date: 3 Loc: Room: 5E8467-4 Type : ADM IN Attending Dr: Gaudencio [...] that time Documented By: Eduardo Monk MD 0621 Signed By: <Electronically signed by Eduardo Monk MD> 11/19/22 0625 [facility] Work Phone: 1(157) 955-461008-15-2023 Progress note Author Eduardo bautista [facility] November 18, 2022 11:01am Note Date/Time November 18, 2022 10 :11am [facility] [address] [place] [address] Psychiatry Progress Note Signed Patient: Michelle Be MR#: [id number] : 1960 Acct:[id number] Age/Sex: 61 / F Adm Date: 3 Loc: 1S Room: 2R9140-2 Type : ADM IN Attending Dr: Gaudencio [...] by requesting a schedule 2 referring to [facility] for pain management specifically every 4-6 hours [...] time Documented By: Eduardo Monk MD 3 0937 Signed By: <Electronically signed by Eduardo Monk MD> 11/18/22 1101 <Electronically signed by MD DA Rangel> 11/18/22 1011 [facility] Work Phone: 1(209) 408-503808-14-2023 History and physical note Author Eduardo bautista [facility] November 17, 2022 12:48pm Note Date/Time November 17, 2022 12 :48pm [facility] [address] [place] [address] Psychiatry H&P Signed Patient: Michelle Be MR#: [id number] : 1960 Acct:[id number] Age/Sex: 61 / F Adm Date: 3 Loc: Room: [address] [place] [address] Type: ADM IN Attending Dr: Gaudencio Monk MD Copies to: MD Adelaida Álvarez NP-Keiry~ Date of Service: 11/17/2022 HPI History [...] that time. She reports moving to [place] from [place] in 2011 and was then diagnosed with bipolar disorder at [facility] in [place], where she still follows with a therapist. Toñitoorts that she has been with 7 therapists in the last 9 years and is currentlycompleting EMDR with her current therapist. Past hospitalizations: Her most recent hospitalization was 5 years ago [place] in [place] for the same feeling she is experiencing [...] worked since 2010 due to her fibromyalgia. [facility]. Relationships: Reports having [...] equal bilaterally. CN XII: Tongue protrusion midline [facility] History (Updated 11/17/22 @ 10:42 [...] signed by Eduardo Monk MD> 11/17/22 1248 [facility] Work Phone: 1(194) 612-212503-23-2023 NoteCONSULTATION CONSULTATION DATE: 06/26/2022 To: Nurse Sheyla [...] L5-S1 facet joint injection under fluoroscopic guidance.[facility] [id number] NotePROCEDURE: XR SHOULDER RT 2V or > [...] Electronically authenticated by: KINGSLEY CLEMENTS Date: 2022-05-09 09:21[facility]01-23-2023 NotePROCEDURE: XR WRIST LT MIN 3 V [...] authenticated by: KINGSLEY CLEMENTS Date: 2022-04-28 13:31[facility] [id number] NoteCONSULTATION CONSULTATION DATE: 04/03/2022 HISTORY OF PRESENT [...] her in three months, unless otherwise indicated.[facility] [id number] NoteCONSULTATION CONSULTATION DATE: 01/02/2022 This is a [...] [facility] in [place] for the compounded cream. She needs a [...] in three months' time unless otherwise indicated.[facility] [id number] NotePROCEDURE: XR ANKLE RT MIN 3 VIEWS, [...] Electronically authenticated by: KINGSLEY CLEMENTS Date: 2022-01-01 13:11[facility]09-28-2022 NotePROCEDURE: XR ANKLE RT MIN [...] Electronically authenticated by: KINGSLEY CLEMENTS Date: 2022-01-01 13:11[facility]08-18-2022 NotePROCEDURE: XR FOOT RT MIN 3 VIEWS HISTORY: Pain in right foot , chronic COMPARISON: XR foot right 2020 FINDINGS: BONES:No fracture, dislocation, bone lesion. Small calcaneal degenerative enthesophytes. SOFT TISSUES:No visible soft tissue swelling. EFFUSION:None visible. OTHER: Negative. IMPRESSION: 1. No acute bone abnormality or significant degenerative joint disease. Electronically authenticated by: KINGSLEY CLEMENTS Date: 2021-11-21 16:13[facility]06-30-2022 NoteCONSULTATION CONSULTATION DATE: 10/03/2021 This [...] patient agrees with the plan of care. [facility] Signed and Approved by: ZELDA MCDANIEL . 10/10/2021 10:22:00[facility] Diagnosis Onset Date Resolution Status Allergies acute Bipolar 2 disorder acute Hypertension acute Morbid obesity with BMI of 45.0-49.9, adult acute OSMANY (obstructive sleep apnea) acute Restless legs syndrome acute [facility] Work Phone: Evaluation noteNo [email or web address] Other Evaluation noteNo assessment information available [facility] Work Phone: Evaluation note* Diagnosis Encounter [...] HealthcareHistory and physical note Author Jace Graham [facility] March 23, 2023 11:21am Note Date/Time March 23, 2023 11:21am [facility] [address] [place] [address] Gastroenterology H&P Signed Patient: Michelle Be MR#: [id number] : 1960 Acct:[id number] Age/Sex: 62 / F Adm Date: 3 Loc: Room: Type: [facility] Attending Dr: Jace Graham MD Copies [...] signed by Jace Graham MD> 03/23/23 1121 [facility] Work Phone: History general Narrative - [...] see above surg Hospitalization History stroke 2018 TBS Other Hospital Discharge instructions Additional Instructions Regular Diet No Activity [facility] Work Phone: Hospital Discharge instructions Additional [...] years. -Follow up with PCP. -Office number [phone].[facility] Work Phone: Summary Purpose Family History [...] and content) DATE CREATED AUTHOR 02/18/2019 [facility] DATE CREATED AUTHOR AUTHOR'S ORGANIZ ATION 11/15/2021 [facility] DATE CREATED AUTHOR AUTHOR'S ORGANIZ ATION 08/16/2022 [facility] DATE CREATED AUTHOR AUTHOR'S ORGANIZ ATION 08/11/2023 [facility] DATE CREATED AUTHOR AUTHOR'S ORGANIZ ATION 08/18/2023 [facility] dical Specialists [facility] DATE CREATED AUTHOR AUTHOR'S ORGANIZ ATION 09/13/2023 [facility] ysician Group Care Teams (unrecognized sec [...] MD Other Provider Active Adelaida Marsh , FAMILY LAW SPECIALIST Other Provider Active Jessica Murillo , [...] MD Other Provider Active Joellen Le , CERT PHARMACY TECH-C Other Provider Active Severo Yancey MD Other Provider Active Rao Webber MD Other Provider Active Yuan Shi MD Other Provider Active Delroy Ramirez MD Other Provider Active Berta Comer , DO Other Provider Active Negrito Ruiz , DO Other Provider Active Lacho Singh , DO Other Provider Active Rachana Hobson FAMILY LAW SPECIALIST Other Provider Active Rob Lake , DO Other Provider Active Jeff Alvarez MD Other Provider Active Urmila Rinaldi , FAMILY LAW SPECIALIST Other Provider Active Bina Mayberry , FAMILY LAW SPECIALIST Other Provider Active Mir Bradford MD Other Provider Active Te Da Silva MD Other Provider Active Debra Landaverde , JOHANN Other Provider Active Team Status: Inactive Member Role Status Dates Adelaida Carrion Primary Care Provider Active Jace Graham MD Attending Provider Active Cash Posting Clerk Relationship Specialty Start Date End Date José Luis Roberts MD [address] [place] [phone] PCP - General Family Medicine 05/18/23 Adelaida Carrion NP [address] [place] [address] Referring Physician Nurse Practitioner 10/14/22 Cash Posting Clerk Relationship Specialty Start Date End Date José Luis Roberts MD [address] [place] [phone] PCP - General Family Medicine 05/18/23 Adelaida Carrion NP [address] [place] [address] Referring Physician Nurse Practitioner 10/14/22 Cash Posting Clerk Relationship Specialty Start Date End Date José Luis Roberts MD [address] [place] [phone] PCP - General Family Medicine 05/18/23 Adelaida Carrion NP [address] [place] [phone] Referring Physician Nurse Practitioner 10/14/22 REASON FOR [...] BE BASED ON THE PRIMARY CLINICAL RECORDS. [employer] provides no warranty or guarantee of the accuracy or completeness of information in this document.
--- NOTE | 2023-09-18 13:16 | MM_ITS ---
Patient Name: MICHELLE BE MR#: [id number] : 1960 Exam Date: 09/18/2023 Ordering Doctor: LIVIER Carrion CNP RADIOLOGY REPORT PROCEDURE: MM TOMOSYNTHESIS SCREENING BI COMPARISON: MM TOMOSYNTHESIS SCREENING BI, 09/15/2022. MG MAMM SCREEN 3D [facility] CAD, 06/20/2021. INDICATIONS: Screening Calculator Name NCI Breast Cancer Risk Assessment Tool 5 Year Breast Cancer Risk 2.20% Lifetime Breast Cancer Risk 10.30% Personal Breast Cancer No Personal Ovarian Cancer No Treatments None Family Cancers None LOCATION: [facility] BREAST COMPOSITION: There are scattered areas of fibroglandular density. FINDINGS: DIAGNOSTIC CATEGORY 2--BENIGN FINDING. NO CHANGE FROM COMPARISON. Scattered benign-appearing calcifications are present. Scattered benign-appearing lymph nodes are present. RIGHT BREAST: No significant suspicious finding. Linear scar marker upper inner quadrant LEFT BREAST: No significant suspicious finding. RECOMMENDATIONS: ROUTINE MAMMOGRAM AND CLINICAL EVALUATION IN 12 MONTHS. PLEASE NOTE: A NORMAL MAMMOGRAM DOES NOT EXCLUDE THE POSSIBILITY OF BREAST CANCER. A CLINICALLY SUSPICIOUS PALPABLE LUMP SHOULD BE BIOPSIED. Dictated by: Harvey Gamble MD on 09/18/2023 at 13:41 Approved by: Harvey Gamble MD on 09/18/2023 at 13:42
== END 2023-09-18 12:51 | disposition home or self-care (01) ==
LOC: MAMMO 12:50
PROVIDERS: PCP Nurse Practitioner; Visit Provider Nurse Practitioner
DX: Z12.31 Encounter for screening mammogram for malignant neoplasm of breast (principal)
CPT/HCPCS: 77063; 77067

== ENCOUNTER 2023-10-01 13:36 | Outpatient (OUT) | payer MEDICARE, SELFPAY ==
--- OUTSIDE RECORDS SUMMARY | 2023-10-01 13:57 | XMS_ITS | CCD ---
Author Organization [facility] Care Team Providers Care Mass [employer] Professor Name Role Phone EBRAHEIM, SUKI Admitting Unavailable EBRAHEIM, SUKI Attending Unavailable AICHHOLZ, ADELAIDA Referring Unavailable AICHHOLZ, ADELAIDA Primary Care Unavailable [place] Procedure Practitioner Unavailab SUKI Jacob Surgeon Unavailable [place] Procedure Practitioner Unavailab CHAPARRITA Goncalves Surgeon Unavailable BRIDGETTE MACEDO Admitting Unavailable BRIDGETTE MACEDO Attending Unavailable AICHHOLZ, DIRECTOR MICROBIOLOGY ADELAIDA Primary Care Unavailable ZIMMER ., DR FINA Iverson Admitting Unavailable ZIMMER ., DR FINA Iverson Attending Unavailable AICHHOLZ, DIRECTOR MICROBIOLOGY ADELAIDA Primary Care Unavailable MCDANIEL ., ZELDA Consulting Unavailable LAKSHMIPATHY ., NARENDRANATH Consulting Paula vailable LAKSHMIPATHY ., NARENDRANATH Admitting Paula vailable LAKSHMIPATHY ., NARENDRANATH Attending Paula vailable AICHHOLZ, DIRECTOR MICROBIOLOGY ADELAIDA Primary Care Unavailable LAKSHMIPATHY ., NARENDRANATH Consulting Paula vailable AICHHOLZ, DIRECTOR MICROBIOLOGY ADELAIDA Primary Care Unavailable MARKER ., DR CHAUDHRY Admitting Unavailable MARKER ., DR CHAUDHRY Attending Unavailable MARKER ., DR CHAUDHRY Consulting Unavailable AICHHOLZ, DIRECTOR MICROBIOLOGY ADELAIDA Admitting Unavailable AICHHOLZ, DIRECTOR MICROBIOLOGY ADELAIDA Attending Unavailable AICHHOLZ, DIRECTOR MICROBIOLOGY ADELAIDA Primary Care Unavailable ZIMMER ., DR FINA Iverson Admitting Unavailable ZIMMER ., DR FINA Iverson Attending Unavailable AICHHOLZ, DIRECTOR MICROBIOLOGY ADELAIDA Primary Care Unavailable MCDANIEL ., ZELDA Consulting Unavailable ZIMMER ., DR FINA Iverson Admitting Unavailable ZIMMER ., DR FINA Iverson Attending Unavailable AICHHOLZ, DIRECTOR MICROBIOLOGY ADELAIDA Primary Care Unavailable MCDANIEL ., ZELDA Consulting Unavailable AICHHOLZ, DIRECTOR MICROBIOLOGY ADELAIDA Admitting Unavailable AICHHOLZ, DIRECTOR MICROBIOLOGY ADELAIDA Attending Unavailable AICHHOLZ, DIRECTOR MICROBIOLOGY ADELAIDA Primary Care Unavailable AICHHOLZ, DIRECTOR MICROBIOLOGY ADELAIDA Consulting Unavailable AICHHOLZ, DIRECTOR MICROBIOLOGY ADELAIDA Admitting Unavailable AICHHOLZ, DIRECTOR MICROBIOLOGY ADELAIDA Attending Unavailable AICHHOLZ, DIRECTOR MICROBIOLOGY ADELAIDA Primary Care Unavailable AICHHOLZ, DIRECTOR MICROBIOLOGY ADELAIDA Consulting Unavailable MISC, DR COTE Admitting Unavailable MISC, DR COTE Attending Unavailable AICHHOLZ, DIRECTOR MICROBIOLOGY ADELAIDA Primary Care Unavailable AICHHOLZ, DIRECTOR MICROBIOLOGY ADELAIDA Consulting Unavailable PRITESHC, DR COTE Consulting Unavailable STARR, DR KINGSLEY Atkins Consulting Unavailable ZIMMER ., DR FINA Iverson Admitting Unavailable ZIMMER ., DR FINA Iverson Attending Unavailable AICHOLZ, DIRECTOR MICROBIOLOGY ADELAIDA Primary Care Unavailable MCDANIEL ., ZELDA Consulting Unavailable ZIMMER ., DR FINA Iverson Admitting Unavailable ZIMMER ., DR FINA Iverson Attending Unavailable AICHOLZ, DIRECTOR MICROBIOLOGY ADELAIDA Primary Care Unavailable ZIMMER ., DR FINA Iverson Consulting Unavailable OMID LAY Consulting Unavailable IZMMER ., DR FINA Iverson Admitting Unavailable ZIMMER ., DR FINA Iverson Attending Unavailable AICHOLZ, DIRECTOR MICROBIOLOGY ADELAIDA Primary Care Unavailable MCDANIEL ., ZELDA Consulting Unavailable AICHOLZ, DIRECTOR MICROBIOLOGY ADELAIDA Primary Care Unavailable HALKER ., ARIAN Admitting Unavailable HALKER ., ARIAN Attending Unavailable LAKSHMIPATHY ., NARENDRANATH Consulting Paula vailable HALKER ., ARIAN Consulting Unavailable LAKSHMIPATHY ., NARENDRANATH Admitting Paula vailable LAKSHMIPATHY ., NARENDRANATH Attending Paula vailable AICHOLZ, DIRECTOR MICROBIOLOGY ADELAIDA Primary Care Unavailable LAKSHMIPATHY ., NARENDRANATH Consulting Paula vailable AICHHOLZ, DIRECTOR MICROBIOLOGY ADELAIDA Admitting Unavailable AICHHOLZ, DIRECTOR MICROBIOLOGY ADELAIDA Attending Unavailable AICHHOLZ, DIRECTOR MICROBIOLOGY ADELAIDA Primary Care Unavailable AICHHOLZ, DIRECTOR MICROBIOLOGY ADELAIDA Consulting Unavailable BRIDGETTE MACEDO Admitting Unavailable BRIDGETTE MACEDO Attending Unavailable AICHHOLZ, DIRECTOR MICROBIOLOGY ADELAIDA Primary Care Unavailable DR KINGSLEY CLEMENTS Consulting Unavailable BRIDGETTE MACEDO Consulting Unavailable PURA, GILMER Admitting Unavailable GILMER NEVES Attending Unavailable PURA, GILMER Consulting Unavailable AICHHOLZ, DIRECTOR MICROBIOLOGY ADELAIDA Primary Care Unavailable AICHHOLZ, DIRECTOR MICROBIOLOGY ADELAIDA Primary Care Unavailable DR WILLI RINALDI Admitting Unavailable DEEJAY, DR WILLI Atkins Attending Unavailable DR WILLI RINALDI Consulting Unavailable AICHHOLZ, DIRECTOR MICROBIOLOGY ADELAIDA Primary Care Unavailable ALMAZ ., DANNY Admitting Unavailable ALMAZ ., DANNY Attending Unavailable DR KINGSLEY CLEMENTS Consulting Unavailable ALMAZ ., DANNY Consulting Unavailable LAKSHMIPATHY ., NARENDRANATH Admitting Paula vailable LAKSHMIPATHY ., NARENDRANATH Attending Paula vailable AICHHOLZ, DIRECTOR MICROBIOLOGY ADELAIDA Primary Care Unavailable AICHHOLZ, DIRECTOR MICROBIOLOGY ADELAIDA Admitting Unavailable AICHHOLZ, DIRECTOR MICROBIOLOGY ADELAIDA Attending Unavailable AICHHOLZ, DIRECTOR MICROBIOLOGY ADELAIDA Primary Care Unavailable AICHHOLZ, DIRECTOR MICROBIOLOGY ADELAIDA Admitting Unavailable AICHHOLZ, DIRECTOR MICROBIOLOGY ADELAIDA Attending Unavailable AICHHOLZ, DIRECTOR MICROBIOLOGY ADELAIDA Primary Care Unavailable AICHHOLZ, DIRECTOR MICROBIOLOGY ADELAIDA Consulting Unavailable DR KINGSLEY CLEMENTS Consulting Unavailable HALKER ., ARIAN Admitting Unavailable HALKER ., ARIAN Attending Unavailable AICHHOLZ, DIRECTOR MICROBIOLOGY ADELAIDA Primary Care Unavailable Aichholz, Adelaida J Primary Care Provider MD Gaudencio Monk Admit Provider MD Gaudencio Monk Attending Provider [phone] JOHANN Vieira Other Provider Unavailable JOHANN Pina Other Provider Unavailable JOHANN Hurtado Other Provider Unavailable JOHANN Crooks Other Provider Unavailable JOHANN Mejias Other Provider Unavailable JOHANN Kim Other Provider Unavailable MD Walker Pringle Other Provider ROSS Marsh Other Provider [phone] DO Jessica Murillo Other Provider MD Obdulio Bragg Other Provider DO Joon Cristina Other Provider MD Torin Robert Other Provider MD Dawn Barrera Other Provider Karlene, ANP- Mari Other Provider MD Sofi Almanzar [...] Provider MD Te Da Silva Other Provider Saima RN Debra Other Provider Unavailable Rosemary Kirkland Unavailable Jace Graham Unavailable Adelaida Carrion Primary Care Provider [phone] MD Jace Graham Attending Provider Adelaida Carrion NP Unavailable José Luis Roberts MD Primary Care Provider [phone] Jamee JAIMES, Syeda King Attending Unavailable ASHLEIGH HINES Attending Unavailable SHEYLA, ADELAIDA Attending Unavailable ASHLEIGH HINES Attending Unavailable AICHHOLNena, ADELAIDA Attending Unavailable AICHHOLNena, ADELAIDA Attending Unavailable AICHHOLNena, ADELAIDA Attending Unavailable JR. HARRY GEORGE C Attending Unavaila ble SHEYLA, ADELAIDA Attending Unavailable SHEYLA, ADELAIDA Attending Unavailable Aleshia, Eduardo Admitting [...] Consulting Unavailable Yuan Shi Consulting Unavailable Delroy Ramirze Consulting Unavailable Berta Comer Consulting Unavailable Negrito Ruiz Consulting Unavailable Lacho Singh Consulting Unavailable ObRachana romano Consulting Unavailable [place] Consulting Unavailable ShadeomaJeff atkins Consulting Unavailable Urmila Rinaldi Consulting Unavailable Bina Mayberry Consulting Unavailable Mir Bradford Consulting Unavailable Te Da Silva Consulting Unavailable Debra Landaverde Consulting Unavailable Jace Graham Admitting Unavailable Jace Graham Attending Unavailable Sheyla, Adelaida Mcnair Primary Care Unavailable Aleshia, Eduardo Admitting Unavailab le Eduardo Monk Attending Unavailab Adelaida Wagner Primary Care Unavailable Allergies Allergy Classification Reported Allergen(s) Allergy Type Date of Onset Reaction(s) Facility (7 sources) Adhesive Tape; Translations: [ADHESIVE TAPE] Propensity to adverse reactions (disorder) 04-06-19 14 rash [facility] (3 sources) levETIRAcetam; Translations: [KEPPRA] Drug Allergy 07-02-19 19 [facility] (3 sources) milnacipran; Translations: [SAVELLA] Drug Allergy 03-14-20 13 [facility] (1 source) Penicillin; Translations: [PENICILLIN] Drug Allergy 01-16-20 18 [facility] (5 sources) Prochlorperazin e; Translations: [COMPAZINE] Drug Allergy 03-14-20 13 agitation [facility] (12 sources) Tetracycline; Translations: [TETRACYCLINE] Drug Allergy 04-06-19 13 Hives, Unknown [facility] (4 sources) Penicillins Drug allergy (disorder) 04-06-19 13 Unknown Reaction [facility] (9 sources) levETIRAcetam; Translations: [levetiracetam] Drug Allergy 12-13-19 22 Hallucinations , Other [facility] (9 sources) milnacipran; Translations: [milnacipran] Drug Allergy 12-13-19 22 hives, Hallucinations , Other, Unknown [facility] (7 sources) Prochlorperazin e; Translations: [prochlorperazi ne] Drug Allergy 12-13-19 22 Unknown, [facility] (2 sources) Penicillin G Drug Allergy as a child [facility] Other (2 sources) Tetracaine Drug Allergy Unknown [facility] Other (4 sources) Penicillins Drug Intolerance 12-13-19 22 Anaphylaxis [facility] (4 sources) Other Propensity to adverse reactions 12-13-19 22 Other [facility] (4 sources) Wound Dressing Adhesive Drug Allergy 09-20-19 23 Rash, Unknown [facility] (1 source) Penicillin Drug Allergy 12-20-19 [facility] (1 source) Penicillins Drug allergy (disorder) 03-23-20 [facility] (1 source) Tetracaine Drug Allergy 12-20-19 [facility] Medications Current Medications Medication [...] Start: 11-17-2022 take 1 tablet by kenyatta once daily Ferrous Sulfate (Iron (Ferrous Sulfate)) [...] 2023 12:00am take 2 tablets by [facility] once daily at bedtime Melatonin 10 MG 2 TABLETS Orally QHS Active Melatonin 12 MG tablet dispersible (4 sources) Melatonin 12 MG tablet dispersible 1 (one) time each day at the same time. 0 Active Multiple Vitamins-Minerals (BARIATRIC MULTIVITAMINS/IRON PO) (4 sources) Multiple Vitamins-Minerals (BARIATRIC MULTIVITAMINS/IRON PO) Bariatric Multivitamins/Iron 0 Active Zhfohacgokjs-Sic-Zysl-Fa- Vit K (Bariatric Multivitamins) 45 mg iron- 800 mcg-120 mcg Capsule (2 sources) Start: 11-17-2022 take 1 capsule by mouth once daily Emwlzbhtblfr-Dun-Ceau-Fa -Vit K (Bariatric Multivitamins) 45 mg iron- 800 mcg-120 mcg Capsule Active 1 CAP PO Daily November 16, 2022 11:00pm Start: 11-17-2022 take 1 capsule by [facility] once daily Vbyjqnfynmpv-Pee-Ytqb-Fa-Vit K (Bariatri c Multivitamins) 45 mg iron- 800 mcg-120 mcg Capsule Active 1 CAP PO Daily November 17, 2022 12:00am nystatin 100 unt/mg topical powder (4 sources) Polyene Antifungal nystatin (Myc ostatin) 205608 UNIT/GM powder Apply 1 application topically in the morning and 1 application before bedtime. 0 Active OLANZapine 5 mg oral tablet (6 sources) Atypical Antipsychotic Start: 3 take 5 mg by mouth every six hours Olanzapine Active 5 MG PO Q6H 30 15 November 17, 2022 11:00pm [facility] [...] of colon; Translations: [Polyp of colon] Onset: 05-18-1905-18-2023 Episodic Other connective tissue disease (1 source) Fibromyalgia; Translations: [FIBROMYALGIA] Onset: 07-17-19 Episodic Other connective tissue disease (4 sources) Radial styloid tenosynovitis [de Quervain]; Translations: [RADIAL STYLOID TENOSYNOVITIS] Onset: 06-12-19 Episodic Other connective tissue disease (2 sources) Weakness of face muscles; Translations: [Facial weakness] 11-18-2022 Episodic Other connective tissue disease (4 sources) Pain in left foot; Translations: [Pain in left foot] Onset: 03-25-2003-25-2023 Episodic Other connective tissue disease (4 sources) Radial styloid tenosynovitis; Translations: [Radial styloid tenosynovitis [de Quervain]] Onset: 05-18-1905-18-2023 Episodic Other connective tissue disease (4 sources) Fibromyalgia; Translations: [Fibromyalgia] Onset: 05-18-19 24 05-18-2023 Episodic Other diseases of bladder and urethra (6 sources) Overactive bladder; Translations: [Overactive bladder] Onset: 05-18-1905-18-2023 Chronic Other gastrointestinal disorders (1 source) Bariatric surgery status; Translations: [BARIATRIC SURGERY STATUS] Onset: 08-01-19 Episodic Other gastrointestinal disorders (4 sources) History of bariatric surgical procedure; Translations: [Bariatric surgery status] Onset: 05-18-19 24 05-18-2023 Episodic Other gastrointestinal disorders (4 sources) Dysphagia; Translations: [Dysphagia, unspecified] Onset: 05-18-19 24 05-18-2023 Episodic Other gastrointestinal disorders (4 sources) Constipation; Translations: [Constipation, unspecified] Onset: 05-18-1905-18-2023 Episodic Other hereditary and degenerative nervous system [...] (severe) obesity due to excess calories] Onset: 03-25-20 23 03-25-2023 Chronic Other nutritional; endocrine; and metabolic disorders [...] 02-20-2022 Episodic Other aftercare (1 source) Other correction (current) drug therapy; Translations: [OTH PENITENTIARY CURRENT DRUG THERAPY] Onset: 04-29-2022 Episodic Other [...] Amphetamines Ql (U) Negative Negative [facility] Barbiturates [Presence] in U rine by Screen methodOrdered By: Jace Graham on 03-23-2023 Barbiturates Screen Ql (U) Negative Negative [facility] Benzodiazepines Screen Ql (U )Ordered By: Jace Graham on 03-23-2023 Benzodiazepines Ql (U) Negative Negative [facility] Benzoylecgonine [Presence] i n Urine by Screen methodOrdered By: Jace Graham on 03-23-2023 Benzoylecgonine Screen Ql (U) Negative Negative [facility] Cannabinoids [Presence] in U rine by Screen methodOrdered By: Jace Graham on 03-23-2023 Cannabinoids Screen Ql (U) Negative Negative [facility] Comment on above: These are unconfirme d results and should not be used for legal purposes. Drug Cut-Off Concentration: AMPH 1000 ng/mL ELKIN 200 ng/mL ATIYA 200 ng/mL COCM 300 ng/mL OP 300 ng/mL PCP 25 ng/mL THC 20 ng/mL Drug Screen,Urineon 03-23-20 23 Amphetamine Screen,Urine Negative Normal Negative [facility] Comment on above: Performed By: #### U RDS #### [address] Barbiturate Screen,Urine Negative Normal Negative [facility] Comment on above: Performed By: #### U RDS #### [address] Benzodiazepines Screen,Urine Negative Normal Negative [facility] Comment on above: Performed By: #### U RDS #### [address] Cannabinoid Screen,Urine Negative Normal Negative [facility] Comment on above: Result Comment: Thes e are unconfirmed results and should not be used for legal purposes. Drug Cut-Off Concentration: AMPH 1000 ng/mL ELKIN 200 ng/mL ATIYA 200 ng/mL COCM 300 ng/mL OP 300 ng/mL PCP 25 ng/mL THC 20 ng/mL PERFORMED BY: [place] [address] PATHOLOGIST CIGARETTE MACHINE OPERATOR AN CURRY M.D. Performed By: #### U RDS #### [address] Cocaine Screen,Urine Negative Normal Negative [facility] Comment on above: Performed By: #### U RDS #### [place] [address] [place] Opiate Screen,Urine Negative Normal Negative [facility] Comment on above: Performed By: #### U RDS #### [place] [address] [place] Phencyclidine Screen,Urine Negative Normal Negative [facility] Comment on above: Performed By: #### U RDS #### [facility] [address] Opiates [Presence] in Urine by Screen methodOrdered By: Jace Graham on 03-23-2023 Opiates Screen Ql (U) Negative Negative [facility] Phencyclidine Screen Ql (U)O rdered By: Jace Graham on 03-23-2023 Phencyclidine Ql (U) Negative Negative [facility] Cholesterol [Mass/volume] in Serum or PlasmaOrdered By: Eduardo Monk on 11-18-2022 Cholesterol [Mass/Vol] 159 mg/dL Normal 140-200 [facility] Comment on above: Chol less than 200 m g/dl low riskChol 201-239 mg/dl borderline riskChol 240 mg/dl and greater high risk Order Comment: teri barney to tomorr morning Result Comment: Chol less than 200 mg/dl low risk Chol 201-239 mg/dl borderline risk Chol 240 mg/dl and greater high risk Performed By: #### L IPID #### [facility] [address] [id number] [place] Cholesterol in LDL Calc [Mas s/Vol]Ordered By: Eduardo Monk on 11-18-2022 Cholesterol in LDL [Mass/Vol] 84 mg/dL 0-100 [facility] Comment on above: LDL ATP III CLASSIFI CATIONLDL less than 100 mg/dL OptimalLDL 100-129 mg/dL Near or above optimalLDL 130-159 mg/dL Borderline highLDL 160-189 mg/dL HighLDL greater than 189 mg/dL Very high Cholesterol in VLDL Calc [Ma ss/Vol]Ordered By: Eduardo Monk on 11-18-2022 Cholesterol in VLDL [Mass/Vol] 28 mg/dL [facility] Lipid Panelon 11-18-2022 LDL Cholesterol,Calculated 84 mg/dL Normal 0-100 [facility] Comment on above: Order Comment: teri barney to tomorrow morning Result Comment: LDL ATP III CLASSIFICATION LDL less than 100 mg/dL Optimal LDL 100-129 mg/dL Near or above optimal LDL 130-159 mg/dL Borderline high LDL 160-189 mg/dL High LDL greater than 189 mg/dL Very high Performed By: #### L IPID #### [facility] [address] Triglyceride w/Reflex 144 mg/dL Normal 0-149 [facility] Comment on above: Order Comment: teri barney to tomorrow morning Result Comment: TRIG ATP III CLASSIFICATION TRIG less than 150 mg/dL Normal TRIG 150-199 mg/dL Borderline high TRIG 200-500 mg/dL High TRIG greater than 500 mg/dL Very high Standard traceable to the Center for Disease Conrtrol and Prevention (CDC) test method. Performed By: #### L IPID #### [facility] [address] VLDL CHOLESTEROL 28 mg/dL Normal [facility] Comment on above: Order Comment: teri barney to tomorr Performed By: #### L IPID #### [facility] [address] Serum or plasma high density lipoprotein (HDL) cholesterol measurementOrdered By: Eduardo Monk on 11-18-2022 Cholesterol in HDL [Mass/Vol] 46 mg/dL Normal 23-92 [facility] Comment on above: HDL CHOL ATP-III CLA SSIFICATION Cardiovascular RiskHDL > or equal to 60 mg/dL LOWHDL < 40 mg/dL HIGH Order Comment: teri barney to tomorr morning Result Comment: HDL CHOL ATP-III CLASSIFICATION Cardiovascular Risk HDL > or equal to 60 mg/dL LOW HDL < 40 mg/dL HIGH Performed By: #### L IPID #### [facility] [address] Serum or plasma total choles terol/high density lipoprotein (HDL) cholesterol mass ratOrdered By: Eduardo Monk on 11-18-2022 Cholesterol.total/Chol esterol in HDL [Mass ratio] 3.5 {ratio} Normal <5.0 [facility] Comment on above: Order Comment: teri barney to tomorr morning Result Comment: PERF ORMED BY: [facility] [address] [facility] [place] [address] PATHOLOGIST CIGARETTE MACHINE OPERATOR AN CURRY M.D. Performed By: #### L IPID #### [address] Thyrotropin [Units/volume] i n Serum or PlasmaOrdered By: Eduardo Monk on 11-18-2022 TSH Qn 2.13 m[IU]/L Normal 0.45-5.33 [facility] Comment on above: Performed By: #### T SH3, [id number] #### [address] [address] [place] Triglyceride [Mass/volume] i n Serum or PlasmaOrdered By: Eduardo Monk on 11-18-2022 Triglyceride [Mass/Vol] 144 mg/dL 0-149 [facility] Comment on above: TRIG ATP III CLASSIF ICATIONTRIG less than 150 mg/dL NormalTRIG 150-199 mg/dL Borderline highTRIG 200-500 mg/dL High TRIG greater than 500 mg/dL Very highStandard traceable to the Center for Disease Conrtrol and Prevention (CDC) test method. Vitamin D 25 Hydroxy Totalon 11-18-2022 Vitamin D 25 Hydroxy Total 50.4 ng/mL Normal 30-100 [facility] Comment on above: Result Comment: SKYLER MIN D STATUS 25(OH)VITAMIN D RANGE (ng/mL) Deficient <20 Insufficient 20 to <30 Sufficient 30 to 100 Reference: Bin MF,Lakshmi NC, Cristian SMART, et al. Evaluation,treatment, and prevention of vitamin D deficiency; an Endocrine Society clinical practice guideline. JCEM. 2010; 96(7):1911-30. PERFORMED BY: [place] [address] PATHOLOGIST CIGARETTE MACHINE OPERATOR AN CURRY M.D. Performed By: #### T SH3, [id number] #### [address] [address] [place] Vitamin D+Metabolites [Mass/ volume] in Serum or PlasmaOrdered By: Eduardo Monk on 11-18-2022 Vitamin D+Metabolites [Mass/Vol] 50.4 ng/mL 30-100 [facility] Comment on above: VITAMIN D STATUS 25( [place])VITAMIN D RANGE (ng/mL) Deficient <20 Insufficient 20 to <30Sufficient 30 to 100Reference: Bin MF,Lakshmi CABRERA, Cristian SMART, et al. Evaluation,treatment, and prevention of vitamin D deficiency; an Endocrine Society clinical practice guideline. JCEM. 2010; 96(7):1911-30. CBC AUTO DIFFon 07-25-2022 BASO # 0.1 103/ul Normal 0.0-0.1 [facility] Comment on above: Performed By: #### A 1C #### [facility] [address] [address] [address] Bebeto Alvarado Basophils/100 WBC (Bld) 0.6 % Normal 0.2-2.0 [facility] Comment on above: Performed By: #### A 1C #### [facility] [address] [address] [address] Bebeto Alvarado EO # 0.2 103/ul Normal 0.0-0.7 [facility] Comment on above: Performed By: #### A 1C #### [facility] [address] [address] [address] Bebeto Alvarado Eosinophils/100 WBC (Bld) 2.3 % Normal 0.9-7.0 [facility] Comment on above: Performed By: #### A 1C #### [facility] [address] [address] [address] Bebeto Alvarado Erythrocyte distribution width (RBC) [Ratio] 13.8 % Normal 11.0-15.0 [facility] Comment on above: Performed By: #### A 1C #### [facility] [address] [place] [address] Dr. Bebeto Alvarado Hematocrit (Bld) [Volume fraction] 41.2 % Normal 36.0-48.0 [facility] Comment on above: Performed By: #### A 1C #### [facility] [address] [place] [address] Dr. Bebeto Alvarado Hemoglobin (Bld) [Mass/Vol] 13.2 g/dL Normal 12.0-16.0 [facility] Comment on above: Performed By: #### A 1C #### [facility] [address] [place] [address] Dr. Bebeto Alvarado IG # 0.03 10e3/ul Normal 0.00-0.03 [facility] Comment on above: Performed By: #### A 1C #### [facility] [address] [place] [address] Dr. Bebeto Alvarado IG % 0.4 % Normal 0.0-0.5 [facility] Comment on above: Performed By: #### A 1C #### [facility] [address] [place] [address] Dr. Bebeto Alvarado LYMPH # 2.1 103/ul Normal 1.2-3.8 [facility] Comment on above: Performed By: #### A 1C #### [facility] [address] [place] [address] Dr. Bebeto Alvarado Lymphocytes/100 WBC (Bld) 25.9 % Normal 20.5-60.0 [facility] Comment on above: Performed By: #### A 1C #### [facility] [address] [place] [address] Dr. Bebeto Alvarado MANUAL DIFF REQ NO Normal [facility] Comment on above: Performed By: #### A 1C #### [facility] [address] [place] [address] Dr. Bebeto Alvarado MCH (RBC) [Entitic mass] 28.0 pg Normal 26.7-34.0 [facility] Comment on above: Performed By: #### A 1C #### [facility] [address] [place] [address] Dr. Bebeto Alvarado MCHC (RBC) [Mass/Vol] 32.0 g/dL Normal 29.9-35.2 [facility] Comment on above: Performed By: #### A 1C #### [facility] [address] [place] [place] [address] Dr. Bebeto Alvarado MCV (RBC) [Entitic vol] 87.5 fL Normal 81.0-99.0 [facility] Comment on above: Performed By: #### A 1C #### [facility] [address] [address] [address] Bebeto Alvarado MONO # 0.5 103/ul Normal 0.3-0.8 [facility] Comment on above: Performed By: #### A 1C #### [facility] [address] [address] [address] Bebeto Alvarado Monocytes/100 WBC (Bld) 6.6 % Normal 1.7-12.0 [facility] Comment on above: Performed By: #### A 1C #### [facility] [address] [address] [address] Bebeto Alvarado NEUT # 5.1 103/ul Normal 1.4-6.5 [facility] Comment on above: Performed By: #### A 1C #### [facility] [address] [place] [address] Dr. Bebeto Alvarado Neutrophils/100 WBC (Bld) 64.2 % Normal 43.0-75.0 [facility] Comment on above: Performed By: #### A 1C #### [facility] [address] [place] [address] Dr. Bebeto Alvarado Platelet mean volume (Bld) [Entitic vol] 11.2 fL Normal 9.5-13.5 [facility] Comment on above: Performed By: #### A 1C #### [facility] [address] [place] [address] Dr. Bebeto Alvarado PLT 252 103/ul Normal 150-450 [facility] Comment on above: Performed By: #### A 1C #### [facility] [address] [place] [address] Dr. Bebeto Alvarado RBC 4.71 106/ul Normal 4.20-5.40 [facility] Comment on above: Performed By: #### A 1C #### [facility] [address] [place] [address] Dr. Bebeto Alvarado WBC 8.0 103/ul Normal 4.0-11.0 [facility] Comment on above: Performed By: #### A 1C #### [facility] [address] [address] [address] Bebeto Alvarado GLYCOHEMOGLOBIN A1Con 2022 ADA RECOMMENDATION SEE BELOW Normal [facility] Comment on above: Result Comment: ADA RECOMMENDED LIMIT 4.0 - 6.0 ADA THERAPEUTIC TARGET < 7.0 ACTION SUGGESTED > 7.0 Performed By: #### A 1C #### [facility] [address] [address] [address] Bebeto Alvarado Glucose [Mass/Vol] 114 mg/dL Normal [facility] Comment on above: Performed By: #### A 1C #### [facility] [address] [address] [address] Bebeto Alvarado HbA1c (Bld) [Mass fraction] 5.6 % Normal 4.5-6.2 [facility] Comment on above: Performed By: #### A 1C #### [facility] [address] [place] [address] Dr. Bebeto Alvarado IRONon 07-25-2022 Iron [Mass/Vol] 60.0 ug/dL Normal 50.0-170.0 [facility] Comment on above: Performed By: #### V ITB12, IRON #### [facility] [address] [place] [address] Dr. Bebeto Alvarado LIPID PROFILEon 07-25-2022 CHOL-HDL RATIO NORM SEE BELOW Normal [facility] Comment on above: Result Comment: 3.3 - 4.4 LOW RISK 4.4 - 7.1 AVERAGE RISK 7.1 - 11.0 MODERATE RISK >11.0 HIGH RISK Performed By: #### C MP, LIPID #### [facility] [address] [place] [address] Dr. Bebeto Alvarado Cholesterol [Mass/Vol] 144 mg/dL Normal <=200 [facility] Comment on above: Performed By: #### C MP, LIPID #### [facility] [address] [place] [address] Dr. Bebeto Alvarado Cholesterol in HDL [Mass/Vol] 39 mg/dL Critically low 40-60 [facility] Comment on above: Performed By: #### C MP, LIPID #### [facility] [address] [address] [address] Bebeto Alvarado Cholesterol in LDL [Mass/Vol] 74.6 mg/dL Normal [facility] Comment on above: Performed By: #### C MP, LIPID #### [facility] [address] [address] [address] Bebeto Alvarado Cholesterol.total/Chol esterol in HDL [Mass ratio] 3.7 {ratio} Normal [facility] Comment on above: Performed By: #### C MP, LIPID #### [facility] [address] [address] [address] Bebeto Alvarado HDL NORMAL > or = 60 mg/dl - LO W CARDIOVASCULAR RISK <40 mg/dl - HIGH CARDIOVASCULAR RISK Normal [facility] Comment on above: Performed By: #### C MP, LIPID #### [facility] [address] [place] [address] Dr. Bebeto Alvarado LDL CALC NORMAL SEE BELOW Normal [facility] Comment on above: Result Comment: <100 mg/dl OPTIMAL 100 - 129 mg/dl NEAR OR ABOVE OPTIMAL 130 - 159 mg/dl BORDERLINE HIGH 160 - 189 mg/dl HIGH >190 mg/dl VERY HIGH Performed By: #### C MP, LIPID #### [facility] [address] [place] [address] Dr. Bebeto Alvarado Triglyceride [Mass/Vol] 152 mg/dL Critically high <=150 [facility] Comment on above: Performed By: #### C MP, LIPID #### [facility] [address] [place] [address] Dr. Bebeto Alvarado VLDL CALC 30.4 mg/dL Normal [facility] Comment on above: Performed By: #### C MP, LIPID #### [facility] [address] [address] [address] Bebeto Alvarado PROF 14(COMP METB)on 023 Albumin [Mass/Vol] 3.7 g/dL Normal 3.4-5.0 [facility] Comment on above: Performed By: #### C MP, LIPID #### [facility] [address] [place] [address] Dr. Bebeto Alvarado Albumin/Globulin [Mass ratio] 0.9 {ratio} Normal [facility] Comment on above: Performed By: #### C MP, LIPID #### [facility] [address] [place] [address] Dr. Bebeto Alvarado ALP [Catalytic activity/Vol] 90 U/L Normal 46-116 [facility] Comment on above: Performed By: #### C MP, LIPID #### [facility] [address] [place] [address] Dr. Bebeto Alvarado ALT [Catalytic activity/Vol] 38 U/L Normal 14-59 [facility] Comment on above: Performed By: #### C MP, LIPID #### [facility] [address] [place] [address] Dr. Bebeto Alvarado Anion gap [Moles/Vol] 12.1 mmol/L Normal [facility] Comment on above: Performed By: #### C MP, LIPID #### [facility] [address] [place] [address] Dr. Bebeto Alvarado AST [Catalytic activity/Vol] 26 U/L Normal 15-37 [facility] Comment on above: Performed By: #### C MP, LIPID #### [facility] [address] [place] [address] Dr. Bebeto Alvarado Bilirubin [Mass/Vol] 0.3 mg/dL Normal 0.2-1.0 [facility] Comment on above: Performed By: #### C MP, LIPID #### [facility] [address] [place] [address] Dr. Bebeto Alvarado Calcium [Mass/Vol] 9.3 mg/dL Normal 8.5-10.1 [facility] Comment on above: Performed By: #### C MP, LIPID #### [facility] [address] [place] [address] Dr. Bebeto Alvarado Chloride [Moles/Vol] 107 mmol/L Normal 98-107 [facility] Comment on above: Performed By: #### C MP, LIPID #### [facility] [address] [place] [address] Dr. Bebeto Alvarado CO2 [Moles/Vol] 27.9 mmol/L Normal 21.0-32.0 [facility] Comment on above: Performed By: #### C MP, LIPID #### [facility] [address] [address] [address] Bebeto Alvarado Creatinine [Mass/Vol] 0.95 mg/dL Normal 0.55-1.02 [facility] Comment on above: Performed By: #### C MP, LIPID #### [facility] [address] [address] [address] Bebeto Alvarado EGFR-AF CAP[place]DEAN >60 Normal >=60 [facility] Comment on above: Performed By: #### C MP, LIPID #### [facility] [address] [place] [address] Dr. Bebeto Alvarado EGFR-NON AF [place] 60 mL/min/1.73m2 Normal >=60 [facility] Comment on above: Performed By: #### C MP, LIPID #### [facility] [address] [place] [address] Dr. Bebeto Alvarado Globulin (S) [Mass/Vol] 3.9 g/dL Normal [facility] Comment on above: Performed By: #### C MP, LIPID #### [facility] [address] [place] [address] Dr. Bebeto Alvarado Glucose [Mass/Vol] 108 mg/dL Critically high 74-106 [facility] Comment on above: Performed By: #### C MP, LIPID #### [facility] [address] [place] [address] Dr. Bebeto Alvarado Potassium [Moles/Vol] 4.0 mmol/L Normal 3.5-5.1 [facility] Comment on above: Performed By: #### C MP, LIPID #### [facility] [address] [address] [address] Bebeto Alvarado Protein [Mass/Vol] 7.6 g/dL Normal 6.4-8.2 [facility] Comment on above: Performed By: #### C MP, LIPID #### [facility] [address] [address] [address] Bebeto Alvarado Sodium [Moles/Vol] 143 mmol/L Normal 136-145 [facility] Comment on above: Performed By: #### C MP, LIPID #### [facility] [address] [place] [address] Dr. Bebeto Alvarado Urea nitrogen [Mass/Vol] 15.0 mg/dL Normal 7.0-18.0 [facility] Comment on above: Performed By: #### C MP, LIPID #### [facility] [address] [place] [address] Dr. Bebeto Alvarado Urea nitrogen/Creatinine [Mass ratio] 15.8 mg/mg Normal [facility] Comment on above: Performed By: #### C MP, LIPID #### [facility] [address] [place] [address] Dr. Bebeto Alvarado UA RANDOM W/MICROSCOPICon BACTERIA NONE SEEN Normal NONE SEEN [facility] Comment on above: Performed By: #### A 1C #### [facility] [address] [place] [address] Dr. Bebeto Alvarado Bilirubin Ql (U) Negative Normal NEGATIVE [facility] Comment on above: Performed By: #### A 1C #### [facility] [address] [place] [address] Dr. Bebeto Alvarado CAST NONE SEEN Normal NONE SEEN [facility] Comment on above: Performed By: #### A 1C #### [facility] [address] [place] [address] Dr. Bebeto Alvarado Clarity (U) CLEAR Normal CLEAR [facility] Comment on above: Performed By: #### A 1C #### [facility] [address] [place] [address] Dr. Bebeto Alvarado Color (U) YELLOW Normal YELLOW [facility] Comment on above: Performed By: #### A 1C #### [facility] [address] [place] [address] Dr. Bebeto Alvarado Crystals LM Nom (Urine sed) NONE SEEN Normal NONE SEEN [facility] Comment on above: Performed By: #### A 1C #### [facility] [address] [place] [address] Dr. Bebeto Alvarado Epithelial cells LM Ql (Urine sed) NONE SEEN Normal NONE SEEN /RARE [facility] Comment on above: Performed By: #### A 1C #### [facility] [address] [place] [address] Dr. Bebeto Alvarado Glucose Ql (U) Negative Normal NEGATIVE [facility] Comment on above: Performed By: #### A 1C #### [facility] [address] [place] [address] Dr. Bebeto Alvarado Hemoglobin Ql (U) Negative Normal NEGATIVE [facility] Comment on above: Performed By: #### A 1C #### [facility] [address] [place] [address] Dr. Bebeto Alvarado Ketones Ql (U) Negative Normal NEGATIVE [facility] Comment on above: Performed By: #### A 1C #### [facility] [address] [place] [address] Dr. Bebeto Alvarado LEUKOCYTES Negative Normal NEGATIVE [facility] Comment on above: Performed By: #### A 1C #### [facility] [address] [place] [address] Dr. Bebeto Alvarado MUCOUS NONE SEEN Normal NONE SEEN [facility] Comment on above: Performed By: #### A 1C #### [facility] [address] [place] [address] Dr. Bebeto Alvarado Nitrite Ql (U) Negative Normal NEGATIVE [facility] Comment on above: Performed By: #### A 1C #### [facility] [address] [place] [address] Dr. Bebeto Alvarado pH (U) 5.5 [pH] Normal 5-9 [facility] Comment on above: Performed By: #### A 1C #### [facility] [address] [place] [address] Dr. Bebeto Alvarado RBC NONE SEEN Abnormal 0-2 [facility] Comment on above: Performed By: #### A 1C #### [facility] [address] [place] [address] Dr. Bebeto Alvarado SPEC GRAVITY 1.030 Abnormal 1.005-<=1.02 5 [facility] Comment on above: Performed By: #### A 1C #### [facility] [address] [address] [address] Bebeto Alvarado UA PROTEIN Negative Normal NEGATIVE/ TRACE [facility] Comment on above: Performed By: #### A 1C #### [facility] [address] [place] [address] Dr. Bebeto Alvarado Urobilinogen Qn (U) 0.2 {Katerin'U}/dL Normal 0.2 - 1. 0 [facility] Comment on above: Performed By: #### A 1C #### [facility] [address] [place] [address] Dr. Bebeto Alvarado WBC NONE SEEN Normal NONE SEEN [facility] Comment on above: Performed By: #### A 1C #### [facility] [address] [place] [address] Dr. Bebeto Alvarado VITAMIN B12on 07-25-2022 Cobalamin (Vitamin B12) [Mass/Vol] 1684.0 pg/mL Critically high 193.0-986.0 [facility] Comment on above: Performed By: #### V ITB12, IRON #### [facility] [address] [place] [address] Dr. Bebeto Alvarado PROF CHEM 8 (BAS METB)on Anion gap [Moles/Vol] 12.2 mmol/L Normal [facility] Comment on above: Performed By: #### B MP #### [facility] [address] [place] [address] Dr. Bebeto Alvarado Calcium [Mass/Vol] 8.9 mg/dL Normal 8.5-10.1 [facility] Comment on above: Performed By: #### B MP #### [facility] [address] [place] [address] Dr. Bebeto Alvarado Chloride [Moles/Vol] 105 mmol/L Normal 98-107 [facility] Comment on above: Performed By: #### B MP #### [facility] [address] [place] [address] Dr. Bebeto Alvarado CO2 [Moles/Vol] 29.6 mmol/L Normal 21.0-32.0 [facility] Comment on above: Performed By: #### B MP #### [facility] [address] [address] [address] Bebeto Alvarado Creatinine [Mass/Vol] 0.95 mg/dL Normal 0.55-1.02 [facility] Comment on above: Performed By: #### B MP #### [facility] [address] [address] [address] Bebeto Alvarado EGFR-AF [place] >60 Normal >=60 [facility] Comment on above: Performed By: #### B MP #### [facility] [address] [address] [address] Bebeto Alvarado EGFR-NON AF [place] 60 mL/min/1.73m2 Normal >=60 [facility] Comment on above: Performed By: #### B MP #### [facility] [address] [address] [address] Bebeto Alvarado Glucose [Mass/Vol] 101 mg/dL Normal 74-106 [facility] Comment on above: Performed By: #### B MP #### [facility] [address] [address] [address] Bebeto Alvarado Potassium [Moles/Vol] 3.8 mmol/L Normal 3.5-5.1 [facility] Comment on above: Performed By: #### B MP #### [facility] [address] [address] [address] Bebeto Alvarado Sodium [Moles/Vol] 143 mmol/L Normal 136-145 [facility] Comment on above: Performed By: #### B MP #### [facility] [address] [address] [address] Bebeto Alvarado Urea nitrogen [Mass/Vol] 16.0 mg/dL Normal 7.0-18.0 [facility] Comment on above: Performed By: #### B MP #### [facility] [address] [address] [address] Bebeto Alvarado Urea nitrogen/Creatinine [Mass ratio] 16.8 mg/mg Normal [facility] Comment on above: Performed By: #### B MP #### [facility] [address] [address] [address] Bebeto Alvarado CBC AUTO DIFFon 11-21-2021 BASO # 0.1 103/ul Normal 0.0-0.1 [facility] Comment on above: Performed By: #### A 1C #### [facility] [address] [place] [address] Dr. Bebeto Alvarado Basophils/100 WBC (Bld) 1.0 % Normal 0.2-2.0 [facility] Comment on above: Performed By: #### A 1C #### [facility] [address] [place] [address] Dr. Bebeto Alvarado EO # 0.2 103/ul Normal 0.0-0.7 [facility] Comment on above: Performed By: #### A 1C #### [facility] [address] [place] [address] Dr. Bebeto Alvarado Eosinophils/100 WBC (Bld) 3.3 % Normal 0.9-7.0 [facility] Comment on above: Performed By: #### A 1C #### [facility] [address] [place] [address] Dr. Bebeto Alvarado Erythrocyte distribution width (RBC) [Ratio] 13.8 % Normal 11.0-15.0 [facility] Comment on above: Performed By: #### A 1C #### [facility] [address] [place] [address] Dr. Bebeto Alvarado Hematocrit (Bld) [Volume fraction] 38.8 % Normal 36.0-48.0 [facility] Comment on above: Performed By: #### A 1C #### [facility] [address] [place] [address] Dr. Bebeto Alvarado Hemoglobin (Bld) [Mass/Vol] 12.5 g/dL Normal 12.0-16.0 [facility] Comment on above: Performed By: #### A 1C #### [facility] [address] [place] [address] Dr. Bebeto Alvarado IG # 0.02 10e3/ul Normal 0.00-0.03 [facility] Comment on above: Performed By: #### A 1C #### [facility] [address] [place] [address] Dr. Bebeto Alvarado IG % 0.3 % Normal 0.0-0.5 [facility] Comment on above: Performed By: #### A 1C #### [facility] [address] [place] [address] Dr. Bebeto Alvarado LYMPH # 1.9 103/ul Normal 1.2-3.8 [facility] Comment on above: Performed By: #### A 1C #### [facility] [address] [place] [address] Dr. Bebeto Alvarado Lymphocytes/100 WBC (Bld) 29.6 % Normal 20.5-60.0 [facility] Comment on above: Performed By: #### A 1C #### [facility] [address] [place] [address] Dr. Bebeto Alvarado MANUAL DIFF REQ NO Normal [facility] Comment on above: Performed By: #### A 1C #### [facility] [address] [place] [address] Dr. Bebeto Alvarado MCH (RBC) [Entitic mass] 28.0 pg Normal 26.7-34.0 [facility] Comment on above: Performed By: #### A 1C #### [facility] [address] [place] [address] Dr. Bebeto Alvarado MCHC (RBC) [Mass/Vol] 32.2 g/dL Normal 29.9-35.2 [facility] Comment on above: Performed By: #### A 1C #### [facility] [address] [place] [address] Dr. Bebeto Alvarado MCV (RBC) [Entitic vol] 86.8 fL Normal 81.0-99.0 [facility] Comment on above: Performed By: #### A 1C #### [facility] [address] [place] [address] Dr. Bebeto Alvarado MONO # 0.4 103/ul Normal 0.3-0.8 [facility] Comment on above: Performed By: #### A 1C #### [facility] [address] [place] [address] Dr. Bebeto Alvarado Monocytes/100 WBC (Bld) 5.7 % Normal 1.7-12.0 [facility] Comment on above: Performed By: #### A 1C #### [facility] [address] [place] [address] Dr. Bebeto Alvarado NEUT # 3.8 103/ul Normal 1.4-6.5 [facility] Comment on above: Performed By: #### A 1C #### [facility] [address] [place] [address] Dr. Bebeto Alvarado Neutrophils/100 WBC (Bld) 60.1 % Normal 43.0-75.0 [facility] Comment on above: Performed By: #### A 1C #### [facility] [address] [place] [address] Dr. Bebeto Alvarado Platelet mean volume (Bld) [Entitic vol] 11.0 fL Normal 9.5-13.5 [facility] Comment on above: Performed By: #### A 1C #### [facility] [address] [place] [address] Dr. Bebeto Alvarado PLT 264 103/ul Normal 150-450 [facility] Comment on above: Performed By: #### A 1C #### [facility] [address] [place] [address] Dr. Bebeto Alvarado RBC 4.47 106/ul Normal 4.20-5.40 [facility] Comment on above: Performed By: #### A 1C #### [facility] [address] [place] [address] Dr. Bebeto Alvarado WBC 6.3 103/ul Normal 4.0-11.0 [facility] Comment on above: Performed By: #### A 1C #### [facility] [address] [place] [address] Dr. Bebeto Alvarado GLYCOHEMOGLOBIN A1Con 2021 ADA RECOMMENDATION SEE BELOW Normal [facility] Comment on above: Result Comment: ADA RECOMMENDED LIMIT 4.0 - 6.0 ADA THERAPEUTIC TARGET < 7.0 ACTION SUGGESTED > 7.0 Performed By: #### A 1C #### [facility] [address] [place] [address] Dr. Bebeto Alvarado Glucose [Mass/Vol] 105 mg/dL Normal [facility] Comment on above: Performed By: #### A 1C #### [facility] [address] [place] [address] Dr. Bebeto Alvarado HbA1c (Bld) [Mass fraction] 5.3 % Normal 4.5-6.2 [facility] Comment on above: Performed By: #### A 1C #### [facility] [address] [place] [address] Dr. Bebeto Alvarado IRONon 11-21-2021 Iron [Mass/Vol] 59.0 ug/dL Normal 50.0-170.0 [facility] Comment on above: Performed By: #### A 1C #### [facility] [address] [place] [address] Dr. Bebeto Alvarado LIPID PROFILEon 11-21-2021 CHOL-HDL RATIO NORM SEE BELOW Normal [facility] Comment on above: Result Comment: 3.3 - 4.4 LOW RISK 4.4 - 7.1 AVERAGE RISK 7.1 - 11.0 MODERATE RISK >11.0 HIGH RISK Performed By: #### C MP, LIPID #### [facility] [address] [place] [address] Dr. Bebeto Alvarado Cholesterol [Mass/Vol] 139 mg/dL Normal <=200 [facility] Comment on above: Performed By: #### C MP, LIPID #### [facility] [address] [place] [address] Dr. Bebeto Alvarado Cholesterol in HDL [Mass/Vol] 35 mg/dL Critically low 40-60 [facility] Comment on above: Performed By: #### C MP, LIPID #### [facility] [address] [place] [address] Dr. Bebeto Alvarado Cholesterol in LDL [Mass/Vol] 69.6 mg/dL Normal [facility] Comment on above: Performed By: #### C MP, LIPID #### [facility] [address] [place] [address] Dr. Bebeto Alvarado Cholesterol.total/Chol esterol in HDL [Mass ratio] 4.0 {ratio} Normal [facility] Comment on above: Performed By: #### C MP, LIPID #### [facility] [address] [address] [address] Bebeto Alvarado HDL NORMAL > or = 60 mg/dl - LO W CARDIOVASCULAR RISK <40 mg/dl - HIGH CARDIOVASCULAR RISK Normal [facility] Comment on above: Performed By: #### C MP, LIPID #### [facility] [address] [address] [address] Bebeto Alvarado LDL CALC NORMAL SEE BELOW Normal [facility] Comment on above: Result Comment: <100 mg/dl OPTIMAL 100 - 129 mg/dl NEAR OR ABOVE OPTIMAL 130 - 159 mg/dl BORDERLINE HIGH 160 - 189 mg/dl HIGH >190 mg/dl VERY HIGH Performed By: #### C MP, LIPID #### [facility] [address] [place] [address] Dr. Bebeto Alvarado Triglyceride [Mass/Vol] 172 mg/dL Critically high <=150 [facility] Comment on above: Performed By: #### C MP, LIPID #### [facility] [address] [address] [address] Bebeto Alvarado VLDL CALC 34.4 mg/dL Normal [facility] Comment on above: Performed By: #### C MP, LIPID #### [facility] [address] [place] [address] Dr. Bebeto Alvarado PROF 14(COMP METB)on 022 Albumin [Mass/Vol] 3.8 g/dL Normal 3.4-5.0 [facility] Comment on above: Performed By: #### C MP, LIPID #### [facility] [address] [address] [address] Bebeto Alvarado Albumin/Globulin [Mass ratio] 1.1 {ratio} Normal [facility] Comment on above: Performed By: #### C MP, LIPID #### [facility] [address] [address] [address] Bebeto Alvarado ALP [Catalytic activity/Vol] 96 U/L Normal 46-116 [facility] Comment on above: Performed By: #### C MP, LIPID #### [facility] [address] [address] [address] Bebeto Alvarado ALT [Catalytic activity/Vol] 25 U/L Normal 14-59 [facility] Comment on above: Performed By: #### C MP, LIPID #### [facility] [address] [address] [address] Bebeto Alvarado Anion gap [Moles/Vol] 11.8 mmol/L Normal [facility] Comment on above: Performed By: #### C MP, LIPID #### [facility] [address] [address] [address] Bebeto Alvarado AST [Catalytic activity/Vol] 20 U/L Normal 15-37 [facility] Comment on above: Performed By: #### C MP, LIPID #### [facility] [address] [place] [address] Dr. Bebeto Alvarado Bilirubin [Mass/Vol] 0.4 mg/dL Normal 0.2-1.0 [facility] Comment on above: Performed By: #### C MP, LIPID #### [facility] [address] [place] [address] Dr. Bebeto Alvarado Calcium [Mass/Vol] 8.8 mg/dL Normal 8.5-10.1 [facility] Comment on above: Performed By: #### C MP, LIPID #### [facility] [address] [place] [address] Dr. Bebeto Alvarado Chloride [Moles/Vol] 106 mmol/L Normal 98-107 [facility] Comment on above: Performed By: #### C MP, LIPID #### [facility] [address] [address] [address] Bebeto Alvarado CO2 [Moles/Vol] 27.0 mmol/L Normal 21.0-32.0 [facility] Comment on above: Performed By: #### C MP, LIPID #### [facility] [address] [address] [address] Bebeto Alvarado Creatinine [Mass/Vol] 0.97 mg/dL Normal 0.55-1.02 [facility] Comment on above: Performed By: #### C MP, LIPID #### [facility] [address] [address] [address] Bebeto Alvarado EGFR-AF [place] >60 Normal >=60 [facility] Comment on above: Performed By: #### C MP, LIPID #### [facility] [address] [address] [address] Bebeto Alvarado EGFR-NON AF [place] 59 mL/min/1.73m2 Critically low >=60 [facility] Comment on above: Performed By: #### C MP, LIPID #### [facility] [address] [address] [address] Bebeto Alvarado Globulin (S) [Mass/Vol] 3.4 g/dL Normal [facility] Comment on above: Performed By: #### C MP, LIPID #### [facility] [address] [place] [address] Dr. Bebeto Alvarado Glucose [Mass/Vol] 103 mg/dL Normal 74-106 [facility] Comment on above: Performed By: #### C MP, LIPID #### [facility] [address] [address] [address] Bebeto Alvarado Potassium [Moles/Vol] 3.8 mmol/L Normal 3.5-5.1 [facility] Comment on above: Performed By: #### C MP, LIPID #### [facility] [address] [place] [address] Dr. Bebeto Alvarado Protein [Mass/Vol] 7.2 g/dL Normal 6.4-8.2 [facility] Comment on above: Performed By: #### C MP, LIPID #### [facility] [address] [address] [address] Bebeto Alvarado Sodium [Moles/Vol] 141 mmol/L Normal 136-145 [facility] Comment on above: Performed By: #### C MP, LIPID #### [facility] [address] [address] [address] Bebeto Alvarado Urea nitrogen [Mass/Vol] 11.0 mg/dL Normal 7.0-18.0 [facility] Comment on above: Performed By: #### C MP, LIPID #### [facility] [address] [place] [address] Dr. Bebeto Alvarado Urea nitrogen/Creatinine [Mass ratio] 11.3 mg/mg Normal [facility] Comment on above: Performed By: #### C MP, LIPID #### [facility] [address] [place] [address] Dr. Bebeto Alvarado URIC ACID SERUMon 11-21-2021 Urate [Mass/Vol] 7.3 mg/dL Critically high 2.6-6.0 [facility] Comment on above: Performed By: #### A 1C #### [facility] [address] [place] [address] Dr. Bebeto Alvarado VITAMIN B12on 11-21-2021 Cobalamin (Vitamin B12) [Mass/Vol] 2123.0 pg/mL Critically high 193.0-986.0 [facility] Comment on above: Performed By: #### A 1C #### [facility] [address] [place] [address] Dr. Bebeto Alvarado Physician Referralon 022 Physician Referral [id number] Normal [facility] KNEE RIGHT 1 OR 2 [facility] KNEE RIGHT 1 OR 2 VWS [facility] Department of Radiology [address] [place] [id number] ======== Patient Name: MICHELLE BE : [...] Electronically signed by:Debra Del Cid. Transcribed by: [email or web address], User Resident: Electronically Signed by: DEBRA DEL CID @ 02/08/2019 11:16 AM Normal [facility] Comment on above: Order Comment: , Mabel ws (X-RAY, KNEE): Radiologic Protocol , Weight Bearing?: N , With or Without Brace/Cast/Collar: With , Views (X-RAY, KNEE): Radiologic Protocol , Weight Bearing?: N , With or Without Brace/Cast/Collar: With , , , Ordering Provider - AHSAN BINGHAM PA-C , KNEE RIGHT 1 OR 2 VWSon 0 KNEE RIGHT 1 OR 2 S [facility] Department of Radiology [address] [place] [address] ======== Patient Name: MICHELLE BE [...] , Exam: KNEE RIGHT 1 OR 2 [facility] ======== KNEE RIGHT 1 OR 2 [facility] 12/07/2018 10:20 AM EDT SIGNS AND SYMPTOMS: [...] complications. Electronically signed by:Tomasz Stoll. Transcribed by: [email or web address], User Resident: Electronically Signed by: TOMASZ STOLL @ 12/07/2018 11:14 AM Normal [facility] Comment on above: Order Comment: , Vie ws (X-RAY, KNEE): Radiologic Protocol , Weight Bearing?: N , With or Without Brace/Cast/Collar: With , Views (X-RAY, KNEE): Radiologic Protocol , Weight Bearing?: N , With or Without Brace/Cast/Collar: With , , , Ordering Provider - AHSNA BINGHAM PA-C , KNEE RIGHT 1 OR 2 [facility] 07-0 KNEE RIGHT 1 OR 2 S [facility] Department of Radiology [address] [place] [phone] ======== Patient Name: MICHELLE BE : [...] osteoarthritis Electronically signed by:Anup Ellison. Transcribed by: [email or web address], User Resident: Electronically Signed by: ANUP ELLISON @ 10/06/2018 02:48 PM Normal [facility] Comment on above: Order Comment: , Vie ws (X-RAY, KNEE): Radiologic Protocol , Weight Bearing?: N , With or Without Brace/Cast/Collar: With , Views (X-RAY, KNEE): Radiologic Protocol , Weight Bearing?: N , With or Without Brace/Cast/Collar: With , , , Ordering Provider - AHASN BINGHAM PA-C , KNEE RIGHT 1 OR 2 Son 08-05 KNEE RIGHT 1 OR 2 S [facility] Department of Radiology [address] [place] [id number] ======== Patient Name: MICHELLE BE : 1960 Sex: F Age: Race: White Pt. Location: 85 Patient Status: Ordered Date: 08/26/2018 2:30:00 PM Completed Date: 08/26/2018 02:54 PM Requesting Provider: AHSAN BINGHAM Attending Provider: Report Copy To: Signs & Symptoms: S82.001A Unsp fracture of right patella, init for clos fx I10 History: [place] Comments: , , , Ordering Provider - [...] effusion Electronically signed by:Anup Ellison. Transcribed by: [email or web address], User Resident: Electronically Signed by: ANUP ELLISON @ 08/26/2018 04:56 PM Normal [facility] Comment on above: Order Comment: , Vie ws (X-RAY, KNEE): Radiologic Protocol , Weight Bearing?: N , With or Without Brace/Cast/Collar: With , Views (X-RAY, KNEE): Radiologic Protocol , Weight Bearing?: N , With or Without Brace/Cast/Collar: With , , , Ordering Provider - AHSAN BINGHAM PA-C , KNEE RIGHT 1 OR 2 Son 07-06 KNEE RIGHT 1 OR 2 S [facility] Department of Radiology [address] [place] [id number] ======== Patient Name: MICHELLE BE : [...] , Exam: KNEE RIGHT 1 OR 2 VW ======== KNEE RIGHT 1 OR 2 S 07/29/2018 2:12 PM EDT SIGNS AND SYMPTOMS: [...] compartment Electronically signed by:Anup Ellison. Transcribed by: [email or web address], User Resident: Electronically Signed by: ANUP ELLISON @ 07/29/2018 03:41 PM Normal [facility] Comment on above: Order Comment: , Mabel ws (X-RAY, KNEE): Radiologic Protocol , Weight Bearing?: N , With or Without Brace/Cast/Collar: With , Views (X-RAY, KNEE): Radiologic Protocol , Weight Bearing?: N , With or Without Brace/Cast/Collar: With , , , Ordering Provider - AHSAN BINGHAM PA-C , KNEE RIGHT 3 [facility] 9 KNEE RIGHT 3 [facility] Department of Radiology [address] [place] [phone] ======== Patient Name: MICHELLE BE : 1960 Sex: F Age: Race: White Pt. Location: 85 Patient Status: Ordered Date: 07/15/2018 8:45:00 AM Completed Date: 07/15/2018 08:47 AM Requesting Provider: AHSAN BINGHAM Attending Provider: Report Copy To: Signs & Symptoms: S82.001A Unsp fracture of right patella, init for clos fx I10 History: [place] Comments: , , , Ordering Provider - [...] knee Electronically signed by:Anup Ellison. Transcribed by: [email or web address], User Resident: Electronically Signed by: ANUP ELLISON @ 07/15/2018 03:31 PM Normal [facility] Comment on above: Order Comment: , Mabel ws (X-RAY, KNEE): Radiologic Protocol , Weight Bearing?: N , With or Without Brace/Cast/Collar: With , Views (X-RAY, KNEE): Radiologic Protocol , Weight Bearing?: N , With or Without Brace/Cast/Collar: With , , , Ordering Provider - AHSAN BINGHAM PA-C , Operative Reporton 9 Operative Report MR#: [id number] [facility] Pt. Name: Michelle Be Room #: [...] Duarte MD Date Trans: 07/03/2018 04:28 Monse/terry [id number] Normal [facility] *ANAEROBIC CULTUREon 019 *ANAEROBIC CULTURE Clinical Report: (D) Specimen/Source: SWAB/RT KNEE Collected: 07/02/2018 13:53 Status: Final Last Updated: 07/07/2018 08:02 CULT RES (Final) No Anaerobes Isolated 5 Days Normal [facility] Comment on above: Performed By: #### 3 0312 #### [id number] [place] [address] *WOUND CULTUREon 07-02-2018 *WOUND CULTURE Clinical Report: (D) Specimen/Source: WOUND/INTRAOP SPEC Collected: 07/02/2018 13:53 Status: Final Last Updated: 07/07/2018 10:13 (1) #1 RT KNEE GRAM (Final) Rare Polys No Bacteria Seen CULT RES (Final) No Growth Day 5 Normal [facility] Comment on above: Order Comment: #1 RT KNEE Performed By: #### 3 0343 #### [address] [address], [place] KNEE RIGHT 1 OR 2 Son 06-05 KNEE RIGHT 1 OR 2 S [facility] Department of Radiology [address] [place] [phone] ======== Patient Name: MICHELLE BE : [...] PATELLA Exam: KNEE RIGHT 1 OR 2 [facility] ======== KNEE RIGHT 1 OR 2 VWS [...] Electronically signed by:Debra Del Cid. Transcribed by: [email or web address], User Resident: Electronically Signed by: DEBRA DEL CID @ 07/02/2018 02:03 PM Normal [facility] Comment on above: Order Comment: ORIF VS PERCUTANEOUS FIXATION RIGHT PATELLA POC GLUCOSE LABon 07-02-2018 Glucose [Mass/Vol] 108 mg/dL High 70-100 [facility] Comment on above: Performed By: #### 8 5499 #### [facility] [address] [place] [address], [place] APTTon 06-30-2018 aPTT Coag (Bld) [Time] 30.6 s Normal 25.0-35.0 [facility] Comment on above: Result Comment: ALL [...] THIS PURPOSE. Performed By: #### 5 6101, 01824 #### [facility] [address] [place] [address], [place] BASIC METABOLIC PANELon 06-05 Calcium [Mass/Vol] 9.7 mg/dL Normal 8.6-10.3 [facility] Comment on above: Performed By: #### 0 0071 #### [facility] [address] [place] [address], [place] Chloride [Moles/Vol] 102 mmol/L Normal 98-107 [facility] Comment on above: Performed By: #### 0 0071 #### [facility] [address] [place] [address], [place] CO2 [Moles/Vol] 28 mmol/L Normal 21-31 [facility] Comment on above: Performed By: #### 0 0071 #### [facility] [address] [place] [address], [place] Creatinine [Mass/Vol] 1.20 mg/dL Normal 0.60-1.20 [facility] Comment on above: Performed By: #### 0 0071 #### [facility] [address] [place] [address], [place] GFR/1.73 sq M predicted among blacks MDRD (S/P/Bld) [Vol rate/Area] 56 ml/min/1.73sq m Abnormal >60 [facility] Comment on above: Performed By: #### 0 0071 #### [facility] [address] [place] [address], [place] GFR/1.73 sq M predicted among non-blacks MDRD (S/P/Bld) [Vol rate/Area] 47 ml/min/1.73sq m Abnormal >60 [facility] Comment on above: Performed By: #### 0 0071 #### [facility] [address] [place] [address], [place] Glucose [Mass/Vol] 97 mg/dL Normal 70-100 [facility] Comment on above: Performed By: #### 0 0071 #### [facility] [address] [place] [address], [place] Potassium [Moles/Vol] 4.1 mmol/L Normal 3.5-5.1 [facility] Comment on above: Performed By: #### 0 0071 #### [facility] [address] [place] [address], [place] Sodium [Moles/Vol] 137 mmol/L Normal 136-145 [facility] Comment on above: Performed By: #### 0 0071 #### [facility] [address] Urea nitrogen [Mass/Vol] 19 mg/dL Normal 7-25 [facility] Comment on above: Performed By: #### 0 0071 #### [facility] [address] CBC W/DIFFon 06-30-2018 ABS BASOPHILS 0.1 10*3/uL Normal 0.0-0.2 [facility] Comment on above: Performed By: #### 5 0103 #### [facility] [address] ABS IMM GRANS 0.0 10*3/uL Normal 0.0-0.2 [facility] Comment on above: Performed By: #### 5 0103 #### [facility] [address] ABS NEUTROPHILS 6.4 10*3/uL Normal 1.6-7.6 [facility] Comment on above: Performed By: #### 5 0103 #### [facility] [address] Basophils/100 WBC (Bld) 0.7 % Normal 0.0-1.0 [facility] Comment on above: Performed By: #### 5 0103 #### [facility] [address] Eosinophils (Bld) [#/Vol] 0.2 10*3/uL Normal 0.0-0.5 [facility] Comment on above: Performed By: #### 5 0103 #### [facility] [address] Eosinophils/100 WBC (Bld) 1.5 % Normal 0.0-6.0 [facility] Comment on above: Performed By: #### 5 0103 #### [facility] [address] [facility] Erythrocyte distribution width (RBC) [Ratio] 14.4 % Normal 11.5-15.0 [facility] Comment on above: Performed By: #### 3 #### [facility] [address] [facility]. [address] Hematocrit (Bld) [Volume fraction] 40.6 % Normal 36.0-45.0 [facility] Comment on above: Performed By: #### 3 #### [facility] [address] Hemoglobin (Bld) [Mass/Vol] 13.3 g/dL Normal 12.0-15.0 [facility] Comment on above: Performed By: #### 3 #### [facility] [address] [facility]. [address] IMMATURE GRANS 0.4 % Normal 0.0-1.0 [facility] Comment on above: Performed By: #### 5 3 #### [facility] [address] [facility]. [address] Lymphocytes (Bld) [#/Vol] 2.6 10*3/uL Normal 1.2-4.0 [facility] Comment on above: Performed By: #### 5 3 #### [facility] [address] Lymphocytes/100 WBC (Bld) 26.5 % Normal 20.0-45.0 [facility] Comment on above: Performed By: #### 3 #### [facility] [address] [place] [address], [place] MCH (RBC) [Entitic mass] 27.4 pg Normal 27.0-33.0 [facility] Comment on above: Performed By: #### 3 #### [facility] [address] MCHC (RBC) [Mass/Vol] 32.8 g/dL Normal 32.0-35.0 [facility] Comment on above: Performed By: #### 3 #### [facility] [address] [facility]. [address] MCV (RBC) [Entitic vol] 83.5 fL Normal 82.0-98.0 [facility] Comment on above: Performed By: #### 102 #### [facility] [address] Monocytes (Bld) [#/Vol] 0.5 10*3/uL Normal 0.1-1.0 [facility] Comment on above: Performed By: #### 102 #### [facility] [address] MONOS 5.0 % Normal 5.0-12.0 [facility] Comment on above: Performed By: #### 3 #### [facility] [address] Neutrophils/100 WBC (Bld) 65.9 % Normal 40.0-72.0 [facility] Comment on above: Performed By: #### 3 #### [facility] [address] Nucleated RBC/100 WBC (Bld) [Ratio] 0 % Normal 0-0 [facility] Comment on above: Performed By: #### 3 #### [facility] [address] [place] [address], [place] PLAT CNT 290 10*3/uL Normal 150-400 [facility] Comment on above: Performed By: #### 102 #### [facility] [address] [place] [address], [place] RBC (Bld) [#/Vol] 4.86 10*6/uL Normal 3.80-5.00 [facility] Comment on above: Performed By: #### 5 0103 #### [facility] [address] [place] [address], [place] WBC (Bld) [#/Vol] 9.68 10*3/uL Normal 4.00-10.60 [facility] Comment on above: Performed By: #### 5 0103 #### [facility] [address] [place] [address], [place] KNEE RIGHT 1 OR 2 VWSon 06-05 KNEE RIGHT 1 OR 2 VWS [facility] Department of Radiology [address] [place] [phone] ======== Patient Name: MICHELLE BE : [...] Electronically signed by:Debra Del Cid. Transcribed by: [email or web address], User Resident: Electronically Signed by: DEBRA DEL CID @ 06/30/2018 11:52 AM Normal [facility] Comment on above: Order Comment: , Mabel ws (X-RAY, KNEE): Radiologic Protocol , Weight Bearing?: N , With or Without Brace/Cast/Collar: With , Views (X-RAY, KNEE): Radiologic Protocol , Weight Bearing?: N , With or Without Brace/Cast/Collar: With , , , Ordering Provider - AHSAN BINGHAM PA-C , PROTHROMBIN TIMEon 9 INR Coag (PPP) [Relative time] 0.98 {INR} Normal 0.91-1.16 [facility] Comment on above: Result Comment: ACCC [...] CHEST 1995;108:[id number]-246S. Performed By: #### 5 6101, [id number] #### [address] PT Coag (PPP) [Time] 13.0 s Normal 12.3-14.8 [facility] Comment on above: Result Comment: ALL RESULTS MUST BE INTERPRETED WITH RESPECT TO BLOOD DRAWING ARTIFACT OR DILUTION ERROR OF ANTICOAGULANT AT THE TIME OF SAMPLING. Performed By: #### 5 6101, [id number] #### [address] KNEE RIGHT 3 [facility] 9 KNEE RIGHT 3 [facility] Department of Radiology [address] [place] [phone] ======== Patient Name: MICHELLE BE : [...] ZHANG PA-C , Exam: KNEE RIGHT 3 [facility] ======== KNEE RIGHT 3 S 06/15/2018 1:34 [...] effusion Electronically signed by:Anup Ellison. Transcribed by: [email or web address], User Resident: Electronically Signed by: ANUP ELLISON @ 06/15/2018 03:50 PM Normal [facility] Comment on above: Order Comment: , Isaiah ght Bearing?: Y , Weight Bearing?: Y , , , Ordering Provider - AMPARO ZHANG PA-C , Vital Signs Date Time Vital Sign Value Performing Clinician Facility 05-18-2023 16:30-0500 Body height 162.6 cm Adelaida Aichholz [employer] Work Phone: [facility] 05-18-2023 16:30-0500 Body mass index (BMI) [Ratio] 47.89 kg/m2 Adelaida Aichholz [employer] Work Phone: [facility] 05-18-2023 16:30-0500 Body temperature 97.3 [degF] Adelaida Aichholz [employer] Work Phone: [facility] 05-18-2023 16:30-0500 Body weight 126.55 kg Adelaida Aichholz [employer] Work Phone: [facility] 05-18-2023 16:30-0500 Diastolic blood pressure 80 mm[Hg] Adelaida Aichholz [employer] Work Phone: [facility] 05-18-2023 16:30-0500 Heart rate 76 /min Adelaida Aichholz [employer] Work Phone: [facility] 05-18-2023 16:30-0500 Respiratory rate 19 /min Adelaida Aichholz [employer] Work Phone: [facility] 05-18-2023 16:30-0500 SaO2% (BldA) [Mass fraction] 97 % Adelaida Aichholz [employer] Work Phone: [facility] 05-18-2023 16:30-0500 Systolic blood pressure 134 mm[Hg] Adelaida Aichholz [employer] Work Phone: [facility] 03-23-2023 12:10-0500 Diastolic blood pressure 98 mm[Hg] Adelaida Aichholz Work Phone: [facility] 03-23-2023 12:10-0500 Heart rate 76 /min Adelaida Carrion Work Phone: [facility] 03-23-2023 12:10-0500 Respiratory rate 18 /min Adelaida Sousaholnena Work Phone: [facility] 03-23-2023 12:10-0500 SaO2% (BldA) [Mass fraction] 99 % Adelaida Carrion Work Phone: [facility] 03-23-2023 12:10-0500 Systolic blood pressure 162 mm[Hg] Adelaida Carrion Work Phone: [facility] 03-23-2023 10:53-0500 Body height 162.56 cm Adelaida Carrion Work Phone: [facility] 03-23-2023 10:53-0500 Body weight 125.64 kg Adelaida Carrion Work Phone: [facility] 12-19-2022 14:55-0400 Body height 162.56 cm Rosemary Vernonmond Other [employer] Other 12-19-2022 14:55-0400 Body mass index (BMI) [Ratio] 47.85 kg/m2 Rosemary Vernonmond Other [employer] Other 12-19-2022 14:55-0400 Body temperature 97.8 [degF] Rosemary Marita Other [employer] Other 12-19-2022 14:55-0400 Body weight 126.46 kg Rosemary Vernonmond Other [employer] Other 12-19-2022 14:55-0400 Respiratory rate 20 /min Rosemary Marita Other [employer] Other 12-19-2022 14:55-0400 SaO2% (BldA) [Mass fraction] 95 % Rosemary Marita Other [employer] Other 11-20-2022 13:12-0400 Body temperature 97.7 [degF] Adelaida Aichholz Work Phone: [facility] 11-20-2022 13:12-0400 SaO2% (BldA) [Mass fraction] 96 % Adelaida Aichholz Work Phone: [facility] 11-20-2022 07:44-0400 Diastolic blood pressure 90 mm[Hg] Adelaida Aichholz Work Phone: [facility] 11-20-2022 07:44-0400 Heart rate 103 /min Adelaida Aichholz Work Phone: [facility] 11-20-2022 07:44-0400 Systolic blood pressure 152 mm[Hg] Adelaida Aichholz Work Phone: [facility] 11-19-2022 20:00-0400 Respiratory rate 18 /min Adelaida Aichholz Work Phone: [facility] 11-18-2022 15:18-0400 Body height 162.56 cm Adelaida Aichholz Work Phone: [facility] 11-17-2022 09:00-0400 Body weight 122.92 kg Adelaida Aichholz Work Phone: [facility] Encounters Encounter Date Encounter Type Care Provider Facility Start: 09-21-2023 End: 09-21-2023 ambulatory ADELAIDA AICHHOLZ Not Available Start: 08-20-2023 ambulatory Eduardo Acevedo acility:[facility] Start: 08-17-2023 End: 08-17-2023 ambulatory ADELAIDA AICHHOLZ Not Available Start: 07-23-2023 End: 07-23-2023 ambulatory ADELAIDA AICHHOLZ Not Available Start: 07-07-2023 End: 07-07-2023 ambulatory ADELAIDA AICMarquesHOLZ Not Available Start: 06-29-2023 End: 06-30-2023 ambulatory [facility] Start: 05-22-2023 End: 05-22-2023 ambulatory ASHLEIGH HINES Not Available Start: 05-21-2023 Refill Adelaida Carrion [employer] Work Phone: [facility] Comment on above: Acute cystitis with hematuria (Primary Dx) Start: 05-18-2023 End: 05-18-2023 Office outpatient visit 25 minutes Adelaida Carrion [employer] Work Phone: [facility] Comment on above: Encounter for annual wellness visit (AWV) in Medicare patient (Primary Dx); OSMANY (obstructive sleep apnea); Chronic pain disorder; Gastroesophageal reflux disease, unspecified whether esophagitis present; Overactive bladder; Lower extremity edema; Pre-diabetes; Morbid obesity (CMS/HCC); Yeast infection of the skin; Tobacco dependence; Mood disorder (CMS/HCC); Primary hypertension (CMS/HCC); Left hip pain; Open wound of anterior abdominal wall, initial encounter Start: 05-18-2023 End: 05-18-2023 ambulatory ADELAIDA SHEYLA Not Available Start: 05-18-2023 Bamboo flowsheet Adelaida Sheyla [employer] Work Phone: [facility] Start: 05-18-2023 Bamboo flowsheet Adelaida Carrion [employer] Work Phone: [facility] Start: 05-18-2023 End: 05-18-2023 Patient encounter procedure Adelaida Carrion [employer] Work Phone: [facility] Start: 03-25-2023 End: 03-25-2023 ambulatory ADELAIDA FRANCIEZ Not Available Start: 03-23-2023 End: 03-23-2023 Admission to same day surgery center Adelaida Carrion Work Phone: [facility] Work Phone: Start: 03-23-2023 End: 03-23-2023 ambulatory Adelaida Mcnair Yingmarquesbob Work Phone: [facility] Work Phone: Start: 03-11-2023 End: 03-11-2023 ambulatory KALLI INTERIANO Not Available Start: 02-20-2023 End: 02-20-2023 ambulatory ASHLEIGH HINES Not Available Start: 02-12-2023 End: 02-12-2023 ambulatory Jace Graham Other [facility] Other Start: 02-12-2023 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 Facili ty:H1 Start: 08-26-2022 ambulatory NARENDRANATH LAKSHMIPATHY . Facility:H1 Start: 08-08-2022 End: 08-09-2022 ambulatory DIRECTOR MICROBIOLOGY ADELAIDA MERRYHOLZ Facility:H1 Start: 07-25-2022 End: 07-26-2022 ambulatory DIRECTOR MICROBIOLOGY ADELAIDA AICMarquesHOLZ Facility:H1 Start: 07-15-2022 End: 07-15-2022 ambulatory NARENDRANATH LAKSHMIPATHY . Facility:H1 Start: 07-11-2022 ambulatory NARENDRANATH LAKSHMIPATHY . Facility:H1 Start: 06-26-2022 End: 06-27-[address] FINA ZIMMER . Facility:H1 Start: 06-11-2022 ambulatory DIRECTOR MICROBIOLOGY ADELAIDA AICMarquesHOLZ Facil ity:H1 Start: 05-21-2022 End: 06-11-2022 ambulatory LIVIER CARRION Facility:H1 Start: 05-08-2022 End: 05-09-2022 ambulatory LIVIER CARRION Facility:H1 Start: 04-28-2022 End: 04-28-2022 ambulatory LIVIER CARRION Facility:H1 Start: 04-03-2022 End: 04-04-[address] FINA ZIMMER . Facility:H1 Start: 03-19-2022 End: 03-20-2022 ambulatory LIVIER CARRION Facility:H1 Start: 02-20-2022 End: 02-20-2022 ambulatory GILMER NEVES Facility:H1 Start: 01-10-2022 End: 02-12-2022 ambulatory BRIDGETTE Ca [facility] Facility:H1 Start: 01-02-2022 End: 01-03-[address] FINA ZIMMER . Facility:H1 Start: 01-01-2022 End: 01-02-2022 ambulatory BRIDGETTE Ca [facility] Facility:H1 Start: 12-16-2021 End: 12-16-2021 ambulatory LIVIER CARRION Facility:H1 Start: 11-21-2021 End: 11-22-[address] DOCTOR BERGERON Facility:H1 Start: 10-03-2021 End: 10-04-[address] FINA ZIMMER . Facility:H1 Start: 09-19-[address] FINA ZIMMER . Faci lity:H1 Start: 09-12-2021 End: 09-12-2021 ambulatory LIVIER SOUSAKUSHNena Facility:H1 Start: 08-20-2021 End: 08-20-[address] FINA ZIMMER . Facility:H1 Start: 07-02-2018 End: 07-03-2018 Patient encounter procedure SUKI ESCALANTE Facility:[facility] Procedures Date Procedure Procedure Detail Performing Clinician Start: 03-23-2023 Screening colonoscopy L oneal Sousabob Work Phone: Start: 03-23-2023 Colonoscopy Adelaida Jayden ramos [employer] Work Phone: Start: 09-15-2022 Mammography Adelaida Jayden ramos [employer] Work Phone: Start: 08-28-2022 Microscopic observat ion [Identifier] in Cervix by Cyto stain Adelaida Carrion NP Work Phone: Start: 07-02-2018 ANESTH KNEE AREA SURGERY CHAPARRITA HENDRICKS Start: 07-02-2018 REMOVAL OF SUPPORT IMPLANT SUKI EBSANDRA Start: 07-02-2018 TREAT KNEECAP FRACTURE SUKI EBRAHEIM Plan of Treatment Date Care Activity Detail Author Start: 03-23-2033 Screening for malignant neoplasm of colon [facility] Start: 08-28-2025 Screening for malignant neoplasm of cervix [facility] Start: 05-18-2024 Medicare Annual Wellness (AWV) Medicare Annual Wellness (AWV) [facility] Start: 09-16-2023 Screening for malignant neoplasm of breast Mammogram [facility] Start: 08-17-2023 End: 08-17-2023 Patient encounter procedure 08/17/2023 9:20 AM EDT Office Visit [facility] [address] [place] [phone] Adelaida Carrion, BRIANA [address] [place] [phone] [facility] Start: 05-22-2023 End: 05-22-2023 Patient encounter procedure 05/22/2023 8:45 AM EST Office Visit [facility] [address] [facility] [address] [place] [address] Ashleigh Hines PA [address] [facility] [address] [place] [address] [facility] Start: 05-18-2023 End: 05-18-2023 Patient encounter procedure 05/18/2023 4:30 PM EST Office Visit [facility] [address] [phone] Adelaida Carrion, BRIANA [address] [place] [phone] Arrived [facility] Comment on above: Arrived Start: 05-18-2023 End: 05-18-2024 XR Hip - left 3 Views XR hip left 2 or 3 views Imaging Routine Left hip pain Expected: 05/18/2023 (Approximate), Expires: 05/18/2024 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 Start: 11-17-2022 [facility] Start: 12-06-1991 Screening for malignant neoplasm of cervix HPV/Cotest [facility] Start: 1960 Medicare Annual Wellness (AWV) Medicare Annual Wellness (AWV) [facility] Start: 1960 Screening for malignant neoplasm of colon [facility] Patient Education [facility] Work Phone: Patient referral [facility] Work Phone: [facility] Immunizations Immunization Date Immunization Notes Care Provider [facility] 02-13-2023 influenza, injectabl e, quadrivalent, preservative free Adelaida Carrion [employer] Work Phone: [facility] 02-13-2023 SARS-COV-2 (COVID-19 ) vaccine, mRNA, spike protein, LNP, PF, 50 mcg/0.5 mL Adelaida Sheyla [employer] Work Phone: [facility] 02-19-2022 diphtheria, tetanus toxoids and pertussis vaccine Adelaida Sheyla [employer] Work Phone: [facility] 03-02-2021 Moderna SARS-CoV-2 Vaccination Adelaida Sheyla [employer] Work Phone: [facility] 08-24-2020 Moderna SARS-CoV-2 Vaccination Adelaida Sheyla [employer] Work Phone: [facility] 07-27-2020 Moderna SARS-CoV-2 Vaccination Adelaida Sheyla [employer] Work Phone: [facility] 05-28-2018 influenza, injectabl e, quadrivalent, preservative free Adelaida Sousabob Work Phone: [facility] Payers Date Payer Category Payer Medicare [id number] 2022 Private Health Insurance [id number] 2022 Self-pay [id number] 2022 Medicare [id number] 2008 Unknown [id number] 1961 Unknown [id number] 2.16.8 40.1.277947.3.579.2.647 1961 Unknown [id number] 2.16.84 0.1.997314.3.579.2.593 1961 Unknown [id number] 2.16.84 0.1.163603.3.579.2.593 1961 Unknown [id number] 2.16.84 0.1.045260.3.579.2.593 1961 Unknown [id number] 2.16.84 0.1.774370.3.579.2.593 1961 Unknown [id number] 2.16.84 0.1.896424.3.579.2.593 1961 Unknown [id number] 2.16.84 0.1.298451.3.579.2.593 1961 Unknown [id number] 2.16.84 0.1.556231.3.579.2.593 1961 Unknown [id number] 2.16.84 0.1.745634.3.579.2.593 1961 Unknown [id number] 2.16.84 0.1.939462.3.579.2.593 1961 Unknown [id number] 2.16.84 0.1.222084.3.579.2.593 1961 Unknown [id number] 2.16.84 0.1.245022.3.579.2.593 1961 Unknown [id number] 2.16.84 0.1.306401.3.579.2.593 1961 Unknown [id number] 2.16.84 0.1.499066.3.579.2.593 1961 Unknown [id number] 2.16.84 0.1.852339.3.579.2.593 1961 Unknown [id number] 2.16.84 0.1.274730.3.579.2.593 1961 Unknown [id number] 2.16.84 0.1.899808.3.579.2.593 1961 Unknown [id number] 2.16.84 0.1.544702.3.579.2.593 1961 Unknown [id number] 2.16.84 0.1.004492.3.579.2.593 1961 Unknown [id number] 2.16.84 0.1.003656.3.579.2.593 1961 Unknown [id number] 2.16.84 0.1.497697.3.579.2.593 1961 Unknown [id number] 2.16.84 0.1.912621.3.579.2.593 1961 Unknown [id number] 2.16.84 0.1.264606.3.579.2.593 1961 Unknown [id number] 2.16.84 0.1.804637.3.579.2.593 1961 Unknown [id number] 2.16.84 0.1.080202.3.579.2.593 1961 Unknown [id number] 2.16. 840.1.248260.3.579.2.196 1961 Unknown [id number] 2.16.84 0.1.751513.3.579.2.1259 1961 Unknown [id number] 2.16.84 0.1.380245.3.579.2.1259 1961 Unknown [id number] 2.16.84 0.1.417623.3.579.2.1259 1961 Unknown [id number] 2.16.84 0.1.206170.3.579.2.1259 1961 Unknown [id number] 2.16.84 0.1.800956.3.579.2.1259 1961 Unknown [id number] 2.16.84 0.1.696084.3.579.2.1259 1961 Unknown [id number] 2.16.840 .1.326166.3.579.2.1259 1961 Unknown [id number] 2.16.840 .1.968257.3.579.2.1259 1961 Unknown [id number] 2.16.840 .1.872903.3.579.2.1259 1959 Medicare [id number] 1959 Unknown [id number] Unknown [id number] 2.16.8 40.1.891603.3.579.2.531 Unknown [id number] 2.16.8 40.1.118153.3.579.2.531 Unknown [id number] 2.16.8 40.1.603415.3.579.2.531 Social History Date Type Detail Facility Start: 11-18-2022 End: 02-09-2023 Tobacco smoking status NHIS Ex-smoker (finding) [facility] Start: 1960 Sex Assigned At Female [facility] Start: 03-25-2023 End: 05-18-2023 Sex [...] Facility 11-20-2022 Functional status Patient at Baseline [facility] Work Phone: Mental Status Date Assessment Result Facility 11-20-2022 Cognitive function Cognitive Sta tus Patient is Progressing Toward Baseline [facility] Work Phone: Clinical Notes 10-03-2021 to 05-18-2023 Adelaida Carrion NP - 05/18/2023 5:49 PM ESTAdelaida Carrion, BRIANA - 05/18/2023 5:47 PM ESTAdelaida Carrion NP - 05/18/2023 5:20 PM ESTAdelaida Carrion NP - 05/18/2023 5:17 PM EST [...] (BARIATRIC MULTIVITAMINS/IRON PO) Bariatric Multivitamins/Iron nystatin (Mycostatin) [id number] UNIT/GM powder 1 application , Topical, 2 [...] Anxiety 05/18/2023 Bipolar disorder with severe depression ([facility]) 05/18/2023 Brain vascular malformation Chronic pain disorder Colon polyps Constipation Degenerative cervical disc Degenerative lumbar disc Depression ([facility]) 05/18/2023 Diastolic dysfunction Dizziness 05/18/2023 Dysphagia Fibromyalgia Gastrocnemius equinus GERD (gastroesophageal reflux disease) Heart murmur Hematoma of right breast Hemiparesis, right ([facility]) Hemorrhoid int/external hemorrhoids Hiatal hernia Iron deficiency Left foot pain 03/25/2023 Lower extremity edema Mood disorder ([facility]) mixed mood disorder OSMANY (obstructive sleep apnea) Osteoporosis ([facility]) Overactive bladder Pre-diabetes Primary hypertension ([facility]) 03/25/2023 PTSD (post-traumatic stress disorder) ([facility]) Restless leg Right knee pain Right sided weakness S/P bariatric surgery Shingles Slurred speech Stroke ([facility]) 2018 Tenosynovitis, de Quervain Thoracic back pain, [...] yearly and prn documented in this encounter [facility] 03-23-2023 Procedure note [facility] 12-19-2022 Evaluation note Encounter Date Diagnosis Assessment Notes Dec, Skin candidiasis (ICD-10 - B37.2) Drink plenty fluids, get plenty of rest. Continue home medications as prescribed. Take the Diflucan as prescribed until gone. Follow-up with your family physician if no improvement in 2 to 3 days [facility] Other 08-17-2023 Discharge summary Author Eduardo bautista [facility] November 20, 2022 6:38am Note Date/Time November 20, 2022 6: 38am [facility] [address] [place] [address] Discharge Summary Signed Patient: Michelle Be MR#: [id number] : 1960 Acct:[id number] Age/Sex: 61 / F Adm Date: 3 Loc: Room: [address] [place] [address]: Gaudencio Monk MD Copies to: MD Adelaida Álvarez, LIQUID SUGAR FORTIFIERMaldonadoC~ Providers Date of Discharge: 11/20/22 Discharging Provider: [...] at that time.? She reports moving to [place] from [place] in 2011 and was then diagnosed with bipolar disorder at [facility] in [place], where she still follows with a therapist.? Shereports that she has been with 7 therapists in the last 9 years and is currentlycompleting EMDR with her current therapist. Past hospitalizations: Her most recent hospitalization was 5 years ago [facility] in [place] for the same feeling she is experiencing [...] worked since 2010 due to her fibromyalgia.? [facility]. Relationships: Reports having [...] self or stop treatment, but to call [employer], 911 or come to the nearest emergency [...] Tablet 1 tab PO QID Follow Up: [facility] [Outside] [facility] [Outside] ( manager of program: (Insert date/time here) Therapy:? (insert date/time here) [...] signed by Eduardo Monk MD> 11/20/22 0638 [facility] Work Phone: 1(385) 561-655108-16-2023 Progress note Author Eduardo bautista [facility] November 19, 2022 6:25am Note Date/Time November 19, 2022 6: 25am [facility] [address] [place] [address] Psychiatry Progress Note Signed Patient: Michelle Be MR#: [id number] : 1960 Acct:[id number] Age/Sex: 61 / F Adm Date: 3 Loc: Room: [address] [place] [address] Type : ADM IN Attending Dr: Gaudencio [...] MD> 11/19/22624 [facility] Work Phone: 1(910) 791-276308-15-2023 Progress note Author Eduardo bautista [facility] November 18, 2022 11:01am Note Date/Time November 18, 2022 10 :11am [facility] [address] [place] [address] Psychiatry Progress Note Signed Patient: Michelle Be MR#: [id number] : 1960 Acct:[id number] Age/Sex: 61 / F Adm Date: 3 Loc: 1S Room: [address] [place] [address] Type : ADM IN Attending Dr: Gaudencio [...] by requesting a schedule 2 referring to [place] for pain management specifically every 4-6 hours [...] signed by MD DA Rangel> 11/18/22 1011 [facility] Work Phone: 1(904) 396-516208-14-2023 History and physical note Author Eduardo bautista [facility] November 17, 2022 12:48pm Note Date/Time November 17, 2022 12 :48pm [facility] [address] [place] [address] Psychiatry H&P Signed Patient: Michelle Be MR#: [id number] : 1960 Acct:[id number] Age/Sex: 61 / F Adm Date: 3 Loc: 1S Room: 7E9191-3 Type: ADM IN Attending Dr: Gaudencio Monk [...] at that time. She reports moving to [place] from [place] in 2011 and was then diagnosed with bipolar disorder at [facility] in [place], where she still follows with a therapist. Shereports that she has been with 7 therapists in the last 9 years and is currentlycompleting EMDR with her current therapist. Past hospitalizations: Her most recent hospitalization was 5 years ago [facility] [place] for the same feeling she is experiencing [...] equal bilaterally. CN XII: Tongue protrusion midline [facility] Medical History (Updated 11/17/22 @ 10:42 by [...] signed by Eduardo Monk MD> 11/17/22 1248 [facility] Work Phone: 1(108) 299-284903-23-2023 NoteCONSULTATION CONSULTATION DATE: 06/26/2022 To: Nurse Carrion [...] L5-S1 facet joint injection under fluoroscopic guidance.[facility] [id number] NotePROCEDURE: XR SHOULDER RT 2V or > [...] authenticated by: KINGSLEY CLEMENTS Date: 2022-05-09 09:21[facility] [id number] NotePROCEDURE: XR WRIST LT MIN 3 V [...] Electronically authenticated by: KINGSLEY CLEMENTS Date: 2022-04-28 13:31[facility]12-29-2022 NoteCONSULTATION CONSULTATION DATE: 04/03/2022 HISTORY OF [...] her in three months, unless otherwise indicated.[facility] [id number] NoteCONSULTATION CONSULTATION DATE: 01/02/2022 This is a [...] prescription was sent by Dr. Macedo to [facility] in [place] for the compounded cream. She needs a [...] in three months' time unless otherwise indicated.[facility] HospitalQbwbjlxi26-51-1938 NotePROCEDURE: XR ANKLE RT MIN 3 VIEWS, [...] Electronically authenticated by: KINGSLEY CLEMENTS Date: 2022-01-01 13:11[facility]09-28-2022 NotePROCEDURE: XR ANKLE RT MIN 3 [...] Electronically authenticated by: KINGSLEY CLEMENTS Date: 2022-01-01 13:11[facility]08-18-2022 NotePROCEDURE: XR FOOT RT MIN 3 VIEWS HISTORY: Pain in right foot , chronic COMPARISON: XR foot right 2020 FINDINGS: BONES:No fracture, dislocation, bone lesion. Small calcaneal degenerative enthesophytes. SOFT TISSUES:No visible soft tissue swelling. EFFUSION:None visible. OTHER: Negative. IMPRESSION: 1. No acute bone abnormality or significant degenerative joint disease. Electronically authenticated by: KINGSLEY CLEMENTS Date: 2021-11-21 16:13[facility]06-30-2022 NoteCONSULTATION CONSULTATION DATE: 10/03/2021 This is [...] patient agrees with the plan of care. [facility] Signed and Approved by: ZELDA MCDANIEL . 10/10/2021 10:22:00[facility] Diagnosis Onset Date Resolution Status Allergies acute Bipolar 2 disorder acute Hypertension acute Morbid obesity with BMI of 45.0-49.9, adult acute OSMANY (obstructive sleep apnea) acute Restless legs syndrome acute [facility] Work Phone: Evaluation noteNo InformationN[place] Other Evaluation noteNo assessment information available [facility] Work Phone: Evaluation note* Diagnosis Encounter for [...] HealthcareHistory and physical note Author Jace Graham [facility] March 23, 2023 11:21am Note Date/Time March 23, 2023 11:21am [facility] [address] [place] [address] Gastroenterology H&P Signed Patient: Michelle Be MR#: [id number] : 1960 Acct:[id number] Age/Sex: 62 / F Adm Date: 3 Loc: Room: Type: [facility] Attending Dr: Jace Graham MD Copies to: [...] signed by Jace Graham MD> 03/23/23 1121 [facility] Work Phone: History general Narrative [...] see above surg Hospitalization History stroke 2018 [facility] Other Hospital Discharge instructions Additional Instructions Regular Diet No Activity [facility]ions[facility] Work Phone: Hospital Discharge instructions Additional Instructions [...] years. -Follow up with PCP. -Office number [phone].[facility] Work Phone: Summary Purpose Family History No [...] and content) DATE CREATED AUTHOR 02/18/2019 [facility] DATE CREATED AUTHOR AUTHOR'S ORGANIZ ATION 11/15/2021 [facility] DATE CREATED AUTHOR AUTHOR'S ORGANIZ ATION 08/16/2022 [facility] DATE CREATED AUTHOR AUTHOR'S ORGANIZ ATION 08/11/2023 [facility] DATE CREATED AUTHOR AUTHOR'S ORGANIZ ATION 09/21/2023 [facility] DATE CREATED AUTHOR AUTHOR'S ORGANIZ ATION 09/27/2023 [facility] ys[facility] Group Care Teams (unrecognized sec tion and content) Team Status: Active Member Role Status Dates [facility] Primary Care Provider Active Team Status: Inactive Member Role Status Dates [facility]ida [facility] Primary Care Provider Active Gaudencio Monk MD Admit Provider, Attending Pr ovider Active Andreina Vieira , JOHANN Other Provider Active Camilla Pina , JOHANN Other Provider Active Ruchi Hurtado , RN Other Provider Active Lisa Crooks , JOHANN Other Provider Active Tash Mejias RN Other Provider Active Elzbieta Kim , JOHANN Other Provider Active Walker Pringle MD Other Provider Active Adelaida Marsh , CONTROLS ENGINEER Other Provider Active Jessica Murillo , DO Other Provider Active Obdulio Bragg MD Other Provider Active Joon Cristina , DO Other Provider Active Torin Robert MD Other Provider Active aDwn Barrera MD Other Provider Active Mari Soler , ANP-BC Other Provider Active Sofi Almanzar MD Other Provider Active Sharad Gallegos MD Other Provider Active Aby Cain MD Other Provider Active Hillary Carrera MD Other Provider Active Julio César Mckeon , DO Other Provider Active Valentine Mak MD Other Provider Active Raymond Strong MD Other Provider Active Joellen Le , LIQUID SUGAR FORTIFIER-C Other Provider Active Severo Yancey MD Other Provider Active Rao Webber MD Other Provider Active Yuan Shi MD Other Provider Active Delroy Ramirez MD Other Provider Active Berta Comer , DO Other Provider Active Negrito Ruiz , DO Other Provider Active Lacho Singh , DO Other Provider Active Rachana Hobson CONTROLS ENGINEER Other Provider Active Rob Lake , DO Other Provider Active Jeff Alvarez MD Other Provider Active Urmila Rinaldi CONTROLS ENGINEER Other Provider Active Bina Mayberry CONTROLS ENGINEER Other Provider Active Mir Bradford MD Other Provider Active Te Da Silva MD Other Provider Active Debra Landaverde , JOHANN Other Provider Active Team Status: Inactive Member Role Status Dates Adelaida Mcnair [facility] Primary Care Provider Active Jace Graham MD Attending Provider Active [employer] Professor Relationship Specialty Start Date End Date José Luis Roberts MD [address] [place] [phone] PCP - General Family Medicine 05/18/23 Adelaida Carrion NP [address] [place] [phone] Referring Physician Nurse Practitioner 10/14/22 [employer] Professor Relationship Specialty Start Date End Date José Luis Roberts MD [address] [place] [phone] PCP - General Family Medicine 05/18/23 Adelaida Carrion NP [address] [place] [phone] Referring Physician Nurse Practitioner 10/14/22 [employer] Professor Relationship Specialty Start Date End Date José Luis Roberts MD [address] [place] [phone] PCP - General Family Medicine 05/18/23 Adelaida Carrion NP [address] [place] [phone] Referring Physician Nurse Practitioner 10/14/22 REASON FOR [...] BE BASED ON THE PRIMARY CLINICAL RECORDS. [facility]. provides no warranty or guarantee of the accuracy or completeness of information in this document.
--- NOTE | 2023-10-01 14:20 | P.CN_ITS ---
Consult Note: HPI Data of Consult Patient: known to practice within the last 3 years Requesting Physician: Bhakti Culp NP Primary Care Provider: Adelaida Carrion NP Consult Narrative Reason for consult: f/u Narrative: Nasim Ingram a pleasant 62 year old female presents for evaluation and management of chronic low back pain and left hip pain. Pain 6/10 constant pain in low back. Pain increased with standing, walking, housework, lifting, stairs, bending, and activity. Patient following with Dr Díaz for consideration of right knee replacement, pending dental clearance. Patient finds mild benefit from medication regimen. Patient recently underwent bilateral LCIH nerve block with >80% improvement in pain and functional ability 4 hours following the procedure. Patient would like to discuss RFA. cc:: CC: Bhakti Culp NP Review of Systems ROS Status of ROS 10 or more systems reviewed and unremark able except as noted in history and below Musculoskeletal Reports: back pain, extremity pain and joint pain PFSH [facility] Medical History FH: bariatric surgery ?Z84.89 - Family history of other specified conditions (ICD-10) Upper back pain ?M54.9 - Dorsalgia, unspecified (ICD-10) Osteoarthritis ?M19.90 - Unspecified osteoarthritis, unspecified site (ICD-10) Neck pain ?M54.2 - Cervicalgia (ICD-10) Low back pain ?M54.50 - Low back pain, unspecified (ICD-10) Fibromyalgia ?M79.7 - Fibromyalgia (ICD-10) Bipolar 1 disorder ?F31.9 - Bipolar disorder, unspecified (ICD-10) Acid reflux ?K21.9 - Gastro-esophageal reflux disease without esophagitis (ICD-10) Obesity ?E66.9 - Obesity, unspecified (ICD-10) Sleep apnea ?G47.30 - Sleep apnea, unspecified (ICD-10) Heart murmur ?R01.1 - Cardiac murmur, unspecified (ICD-10) High cholesterol ?E78.00 - Pure hypercholesterolemia, unspecified (ICD-10) Hypertension ?I10 - Essential (primary) hypertension (ICD-10) Surgical History S/P dilatation and curettage ?Z98.890 - Other specified postprocedural states (ICD-10) H/O breast biopsy ?Z98.890 - Other specified postprocedural states (ICD-10) S/P ORIF (open reduction internal fixation) fracture ?Z98.890 - Other specified postprocedural states (ICD-10) ?Z87.81 - Personal history of (healed) traumatic fracture (ICD-10) Hx of laparoscopic gastric banding ?Z98.84 - Bariatric surgery status (ICD-10) History of tonsillectomy and adenoidectomy ?Z90.89 - Acquired absence of other organs (ICD-10) History of appendectomy ?Z90.49 - Acquired absence of other specified parts of digestive tract (ICD- 10) History of hemilaminectomy ?Z98.890 - Other specified postprocedural states (ICD-10) History of cholecystectomy ?Z90.49 - Acquired absence of other specified parts of digestive tract (ICD- 10) Previous section ?Z98.891 - History of uterine scar from previous surgery (ICD-10) Social History Smoking status: Former smoker Meds Home Medications and Allergies Home Medications ?Medication ?Instructions ?Recorded ?Confirmed ?Type amlodipine 10 mg tablet (Norvasc) 10 mg PO DAILY 09/10/22 08/04/23 History biotin 1 mg capsule 1 mg PO DAILY 09/10/22 08/04/23 History cariprazine 4.5 mg capsule 4.5 mg PO Q24H 09/10/22 08/04/23 History (Vraylar) cetirizine 10 mg tablet (24Hour 10 mg PO DAILY PRN allergy symptoms 09/10/22 08/04/23 History Allergy) clonazepam 1 mg tablet 1 mg Q12H 09/10/22 History duloxetine 60 mg capsule,delayed mg PO BID 09/10/22 History release ferrous sulfate 325 mg (65 mg 325 mg PO BID 09/10/22 08/04/23 History iron) tablet (FeroSul) gabapentin 600 mg tablet 1,200 mg PO DAILY 09/10/22 08/04/23 History (Neurontin) gabapentin 600 mg tablet 600 mg PO DAILY 09/10/22 08/04/23 History (Neurontin) losartan 50 mg tablet (Cozaar) 50 mg PO DAILY 09/10/22 08/04/23 History magnesium 200 mg tablet 400 mg PO BID 09/10/22 08/04/23 History melatonin 12 mg tablet 12 mg PO .HS PRN sleep 09/10/22 08/04/23 History omeprazole 20 mg capsule,delayed 20 mg 09/10/22 History release ropinirole 4 mg tablet mg QDAY 09/10/22 History trazodone 150 mg tablet 300 mg .HS 09/10/22 History tizanidine 4 mg capsule 4 mg PO TID PRN muscle spasticity 02/18/23 08/04/23 History carvedilol 6.25 mg tablet 6.25 mg PO Q12H 07/11/23 08/04/23 History eszopiclone 1 mg tablet (Lunesta) 2 mg .HS 08/04/23 History Allergies Allergy/AdvReac Type Severity Reaction Status Date / Time levetiracetam [From [facility]] Allergy Severe Verified 08/04/23 08:05 adhesive Allergy Intermediate Blister Verified 08/04/23 08:05 Penicillins Allergy Intermediate Verified 08/04/23 08:05 tetracycline Allergy Intermediate Verified 08/04/23 08:05 milnacipran [From [facility]] AdvReac Intermediate Agitated Verified 08/04/23 08:05 prochlorperazine AdvReac Intermediate Agitated Verified 08/04/23 08:05 [From Compazine] Exam Constitutional Documenting provider has reviewed patient's vital signs: yes Common normals: no apparent distress, oriented x3, healthy appearing, alert and well nourished General appearance: cooperative Nutritional appearance: obese HENNM Common normals: normocephalic, hearing grossly normal bilaterally and moist oral mucous membranes Head and scalp: normocephalic Eye Common normals: PERRL Pupil: PERRL Neck & C-Spine Common normals: full ROM General: normal visual inspection Chest Common normals: inspection of chest normal Respiratory Common normals: normal respiratory effort, no retractions and no use of ac cessory muscles Back & Pelvis Lumbar spine/lower back: lumbar ROM normal and pain with ROM Sacroiliac joints: SI joint(s) abnormal Other: negative facet loading pain over bilateral PSIS, positive autumn fadir thigh thrust and gaenslens pain over bilateral LCIH nerve, left greater than right Extremity Common normals: normal to inspection and full ROM Left lower extremity: hip joint Other: no pain with external rotation and internal rotation of left hip Neuro Common normals: oriented x3, CN's II-XII intact bilaterally, moves all extremities, no focal motor deficits, no sensory deficits noted and deep tendon reflexes 2+ bilaterally Sensorium/orientation: alert Gait (neuro): normal gait Motor exam: strength 5/5 throughout and no movement abnormalities noted Psych Common normals: mental status grossly normal, thought process normal, cooperative, affect normal, speech normal and activity/motor behavior normal Speech: normal speech Thought process: normal thought process Assessment and Plan Assessment and Plan (1) Unspecified mononeuropathy of right lower limb: (2) Unspecified mononeuropathy of left lower limb: (3) Sacroiliitis: Plan left and right LCIH nerve RFA refill and continue tizanidine 2mg Q8HRS PRN pain/spasms f/u 1 month after RFA
== END 2023-10-01 13:37 | disposition home or self-care (01) ==
PROVIDERS: PCP Nurse Practitioner; Visit Provider Nurse Practitioner
DX: M46.1 Sacroiliitis, not elsewhere classified (principal); G57.93 Unspecified mononeuropathy of bilateral lower limbs
CPT/HCPCS: G0463

== ENCOUNTER 2023-10-13 06:44 | Outpatient (OUT) | payer MEDICARE, SELFPAY ==
[2023-10-13 07:31] LABS: Anion Gap 15.5; BUN Creatinine Ratio 18.2; Calcium 8.5 mg/dL (8.5-10.1); Carbon Dioxide 25.3 mmol/L (21.0-32.0); Chloride 107 mmol/L (98-107); Estimated GFR (African America >60 (>=60); Estimated GFR (Non-African Ame >60 (>=60); Glucose 104 mg/dL (74-106); Potassium 3.8 mmol/L (3.5-5.1); Sodium 144 mmol/L (136-145)
== END 2023-10-13 06:45 | disposition home or self-care (01) ==
LOC: LAB 06:46
PROVIDERS: PCP Nurse Practitioner; Visit Provider Nurse Practitioner
DX: R60.0 Localized edema (principal)
CPT/HCPCS: 36415; 80048

== ENCOUNTER 2023-10-20 06:54 | Day surgery (SDC) | payer MEDICARE, SELFPAY ==
--- OUTSIDE RECORDS SUMMARY | 2023-10-20 06:57 | XMS_ITS | CCD ---
Author Organization [facility] Care Team Providers Care Blood Bank Credit Clerk Name Role Phone EBRAHEIM, SUKI Admitting Unavailable EBRAHEIM, SUKI Attending Unavailable AICHHOLZ, ADELAIDA Referring Unavailable AICHHOLZ, ADELAIDA Primary Care Unavailable [place] Procedure Practitioner Unavailab SUKI Jacob Surgeon Unavailable NH Procedure Practitioner Unavailab CHAPARRITA Goncalves Surgeon Unavailable BRIDGETTE MACEDO Admitting Unavailable BRIDGETTE MACEDO Attending Unavailable AICHHOLZ, HISTOLOGY MANAGER ADELAIDA Primary Care Unavailable ZIMMER ., DR FINA Iverson Admitting Unavailable ZIMMER ., DR FINA Iverson Attending Unavailable AICHHOLZ, HISTOLOGY MANAGER ADELAIDA Primary Care Unavailable MCDANIEL ., ZELDA Consulting Unavailable LAKSHMIPATHY ., NARENDRANATH Consulting Paula vailable LAKSHMIPATHY ., NARENDRANATH Admitting Paula vailable LAKSHMIPATHY ., NARENDRANATH Attending Paula vailable AICHHOLZ, HISTOLOGY MANAGER ADELAIDA Primary Care Unavailable LAKSHMIPATHY ., NARENDRANATH Consulting Paula vailable AICHHOLZ, HISTOLOGY MANAGER ADELAIDA Primary Care Unavailable MARKER ., DR CHAUDHRY Admitting Unavailable MARKER ., DR CHAUDHRY Attending Unavailable MARKER ., DR CHAUDHRY Consulting Unavailable AICHHOLZ, HISTOLOGY MANAGER ADELAIDA Admitting Unavailable AICHHOLZ, HISTOLOGY MANAGER ADELAIDA Attending Unavailable AICHHOLZ, HISTOLOGY MANAGER ADELAIDA Primary Care Unavailable ZIMMER ., DR FINA Iverson Admitting Unavailable ZIMMER ., DR FINA Iverson Attending Unavailable AICHHOLZ, HISTOLOGY MANAGER ADELAIDA Primary Care Unavailable MCDANIEL ., ZELDA Consulting Unavailable ZIMMER ., DR FINA Iverson Admitting Unavailable ZIMMER ., DR FINA Iverson Attending Unavailable AICHHOLZ, HISTOLOGY MANAGER ADELAIDA Primary Care Unavailable MCDANIEL ., ZELDA Consulting Unavailable AICHHOLZ, HISTOLOGY MANAGER ADELAIDA Admitting Unavailable AICHHOLZ, HISTOLOGY MANAGER ADELAIDA Attending Unavailable AICHHOLZ, HISTOLOGY MANAGER ADELAIDA Primary Care Unavailable AICHHOLZ, HISTOLOGY MANAGER ADELAIDA Consulting Unavailable AICHHOLZ, HISTOLOGY MANAGER ADELAIDA Admitting Unavailable AICHHOLZ, HISTOLOGY MANAGER ADELAIDA Attending Unavailable AICHHOLZ, HISTOLOGY MANAGER ADELAIDA Primary Care Unavailable AICHHOLZ, HISTOLOGY MANAGER ADELAIDA Consulting Unavailable MISC, DR COTE Admitting Unavailable MISC, DR COTE Attending Unavailable AICHHOLZ, HISTOLOGY MANAGER ADELAIDA Primary Care Unavailable AICHHOLZ, HISTOLOGY MANAGER ADELAIDA Consulting Unavailable PRITESHC, DR COTE Consulting Unavailable STARR, DR KINGSLEY Atkins Consulting Unavailable ZIMMER ., DR FINA Iverson Admitting Unavailable ZIMMER ., DR FINA Iverson Attending Unavailable AICHOLZ, HISTOLOGY MANAGER ADELAIDA Primary Care Unavailable MCDANIEL ., ZELDA Consulting Unavailable ZIMMER ., DR FINA Iverson Admitting Unavailable ZIMMER ., DR FINA Iverson Attending Unavailable AICHOLZ, HISTOLOGY MANAGER ADELAIDA Primary Care Unavailable ZIMMER ., DR FINA Iverson Consulting Unavailable OMID LAY Consulting Unavailable ZIMMER ., DR FINA Iverson Admitting Unavailable ZIMMER ., DR FINA Iverson Attending Unavailable AICHOLZ, HISTOLOGY MANAGER ADELAIDA Primary Care Unavailable MCDANIEL ., ZELDA Consulting Unavailable AICHOLZ, HISTOLOGY MANAGER ADELAIDA Primary Care Unavailable HALKER ., ARIAN Admitting Unavailable HALKER ., ARIAN Attending Unavailable LAKSHMIPATHY ., NARENDRANATH Consulting Paula vailable HALKER ., ARIAN Consulting Unavailable LAKSHMIPATHY ., NARENDRANATH Admitting Paula vailable LAKSHMIPATHY ., NARENDRANATH Attending Paula vailable AICHOLZ, HISTOLOGY MANAGER ADELAIDA Primary Care Unavailable LAKSHMIPATHY ., NARENDRANATH Consulting Paula vailable AICHHOLZ, HISTOLOGY MANAGER ADELAIDA Admitting Unavailable AICHHOLZ, HISTOLOGY MANAGER ADELAIDA Attending Unavailable AICHHOLZ, HISTOLOGY MANAGER ADELAIDA Primary Care Unavailable AICHHOLZ, HISTOLOGY MANAGER ADELAIDA Consulting Unavailable BRIDGETTE MACEDO Admitting Unavailable BRIDGETTE MACEDO Attending Unavailable AICHHOLZ, HISTOLOGY MANAGER ADELAIDA Primary Care Unavailable DR KINGSLEY CLEMENTS Consulting Unavailable BRIDGETTE MACEDO Consulting Unavailable PURA, GILMER Admitting Unavailable GILMER NEVES Attending Unavailable PURA, GILMER Consulting Unavailable AICHHOLZ, HISTOLOGY MANAGER ADELAIDA Primary Care Unavailable AICHHOLZ, HISTOLOGY MANAGER ADELAIDA Primary Care Unavailable DR WILLI RINALDI Admitting Unavailable DEEJAY, DR WILLI Atkins Attending Unavailable DR WILLI RINALDI Consulting Unavailable AICHHOLZ, HISTOLOGY MANAGER ADELAIDA Primary Care Unavailable ALMAZ ., DANNY Admitting Unavailable ALMAZ ., DANNY Attending Unavailable DR KINGSLEY CLEMENTS Consulting Unavailable ALMAZ ., DANNY Consulting Unavailable LAKSHMIPATHY ., NARENDRANATH Admitting Paula vailable LAKSHMIPATHY ., NARENDRANATH Attending Paula vailable AICHHOLZ, HISTOLOGY MANAGER ADELAIDA Primary Care Unavailable AICHHOLZ, HISTOLOGY MANAGER ADELAIDA Admitting Unavailable AICHHOLZ, HISTOLOGY MANAGER ADELAIDA Attending Unavailable AICHHOLZ, HISTOLOGY MANAGER ADELAIDA Primary Care Unavailable AICHHOLZ, HISTOLOGY MANAGER ADELAIDA Admitting Unavailable AICHHOLZ, HISTOLOGY MANAGER ADELAIDA Attending Unavailable AICHHOLZ, HISTOLOGY MANAGER ADELAIDA Primary Care Unavailable AICHHOLZ, HISTOLOGY MANAGER ADELAIDA Consulting Unavailable DR KINGSLEY CLEMENTS Consulting Unavailable HALKER ., ARIAN Admitting Unavailable HALKER ., ARIAN Attending Unavailable AICHHOLZ, HISTOLOGY MANAGER ADELAIDA Primary Care Unavailable Aichholz, Adelaida J Primary Care Provider [phone] MD Gaudencio Monk Admit Provider [phone] MD Gaudencio Monk Attending Provider JOHANN Vieira Other Provider Unavailable JOHANN Pina Other Provider Unavailable JOHANN Hurtado Other Provider Unavailable JOHANN Crooks Other Provider Unavailable JOHANN Mejias Other Provider Unavailable JOHANN Kim Other Provider Unavailable MD Walker Pringle Other Provider ROSS Marsh Other Provider DO Jessica Murillo Other Provider [phone] MD Obdulio Bragg Other Provider [phone] DO Joon Cristina Other Provider [phone] MD Torin Robert Other Provider MD Dawn [...] José Luis Roberts MD Primary Care Provider Jamee JAIMES, Syeda King Attending Unavailable Eduardo Monk Admitting Unavailab Eduardo Connolly Attending Unavailab le Adelaida Carrion Primary Care Unavailable Andreina Vieira Consulting Unavailable Camilla Pina Consulting Unavailable Ruchi Hurtado Consulting Unavailable Lisa Crooks Consulting Unavailable Tash Mejias Consulting Unavailable Elzbieta Kim Consulting Unavailable Walker Pringle Consulting Unavailable Adelaida Marsh Consulting Unavailable Jessica Murillo Consulting Unavailable Obdulio Bragg Consulting Unavailable Joon Cristina Consulting UnavailTorin Beavers Consulting Unavailable Dwan Barrera Consulting Unavailable Mari Herrera Consulting UnavailSofi Marques Consulting Unavailable Sharad Gallegos Consulting Unavailable Aby Cain Consulting Unavailable Hillary Carrera Consulting Unavailable Julio César Mckeon Consulting Unavailable Valentine Mak Consulting Unavailable Raymond Strong Consulting Unavailable Joellen Le Consulting Unavailable DoSevero navarro Consulting Unavailab kayleen AkbarRao atkins Consulting Unavailable Yuan Shi Consulting Unavailable Delroy [...] Monk Admitting Unavailab Eduardo Connolly Attending Unavailab le Adelaida Carrion Primary Care Unavailable ASHLEIGH HINES Attending Unavailable ADELAIDA CARRION Attending Unavailable ASHLEIGH HINES Attending Unavailable ADELAIDA CARRION Attending Unavailable ADELAIDA CARRION Attending Unavailable ADELAIDA CARRION Attending Unavailable JR. HARRY GEORGE C Attending Unavaila ble ADELAIDA CARRION Attending Unavailable ADELAIDA CARRION Attending Unavailable ADELAIDA CARRION Attending Unavailable Allergies Allergy Classification Reported Allergen(s) Allergy Type Date of Onset Reaction(s) Facility (7 sources) Adhesive Tape; Translations: [ADHESIVE TAPE] Propensity to adverse reactions (disorder) 04-06-19 14 rash [facility] Repository (3 sources) levETIRAcetam; Translations: [KEPPRA] Drug Allergy 07-02-19 19 [facility] Repository (3 sources) milnacipran; Translations: [SAVELLA] Drug Allergy 03-14-20 13 [facility] Repository (1 source) Penicillin; Translations: [PENICILLIN] Drug Allergy 01-16-20 18 [facility] Repository (5 sources) Prochlorperazin e; Translations: [COMPAZINE] Drug Allergy 03-14-20 13 agitation [facility] Repository (12 sources) Tetracycline; Translations: [TETRACYCLINE] Drug Allergy 04-06-19 13 Hives, Unknown [facility] Repository (4 sources) Penicillins Drug allergy (disorder) 04-06-19 13 Unknown Reaction [facility] Repository (9 sources) levETIRAcetam; Translations: [levetiracetam] Drug Allergy 12-13-19 22 Hallucinations , Other [facility] (9 sources) milnacipran; Translations: [milnacipran] Drug Allergy 12-13-19 22 hives, Hallucinations , Other, Unknown [facility] (7 sources) Prochlorperazin e; Translations: [prochlorperazi ne] Drug Allergy 12-13-19 22 Unknown, [facility] (2 sources) Penicillin G Drug Allergy as a child [employer] Other (2 sources) Tetracaine Drug Allergy Unknown [employer] Other (4 sources) Penicillins Drug Intolerance 12-13-19 22 Anaphylaxis [facility] (4 sources) Other Propensity to adverse reactions 12-13-19 22 Other [facility] (4 sources) Wound Dressing Adhesive Drug Allergy 09-20-19 23 Rash, Unknown [facility] (1 source) Penicillin Drug Allergy 12-20-19 [facility] Repository (1 source) Penicillins Drug allergy (disorder) 03-23-20 [facility] Repository (1 source) Tetracaine Drug Allergy 12-20-19 [facility] Repository Medications Current Medications Medication Drug [...] (4 sources) alpha-Adrenergic Jim, beta-Adrenergic Jim Start: 01 End: take 1 tablet by mouth in [...] 23, 2023 12:00am take 2 tablets by [facility] once daily at bedtime Melatonin 10 MG 2 TABLETS Orally QHS Active Melatonin 12 MG tablet dispersible (4 sources) Melatonin 12 MG tablet dispersible 1 (one) time each day at the same time. 0 Active Multiple Vitamins-Minerals (BARIATRIC MULTIVITAMINS/IRON PO) (4 sources) Multiple Vitamins-Minerals (BARIATRIC MULTIVITAMINS/IRON PO) Bariatric Multivitamins/Iron 0 Active Tzxddanoluxo-Kzg-Opch-Fa- Vit K (Bariatric Multivitamins) 45 mg iron- 800 mcg-120 mcg Capsule (2 sources) Start: 11-17-2022 take 1 capsule by mouth once daily Ccihygbegqmp-Rho-Tmaa-Fa -Vit K (Bariatric Multivitamins) 45 mg iron- 800 mcg-120 mcg Capsule Active 1 CAP PO Daily November 16, 2022 11:00pm Start: 11-17-2022 take 1 capsule by [facility] once daily Yuowuccskocr-Gbk-Frlr-Fa-Vit K (Bariatri c Multivitamins) 45 mg iron- 800 mcg-120 mcg Capsule Active 1 CAP PO Daily November 17, 2022 12:00am nystatin 100 unt/mg topical powder (4 sources) Polyene Antifungal nystatin (Myc ostatin) 255209 UNIT/GM powder Apply 1 application topically in the morning and 1 application before bedtime. 0 Active OLANZapine 5 mg oral tablet (6 sources) Atypical Antipsychotic Start: 3 take 5 mg by mouth every six hours Olanzapine Active 5 MG PO Q6H 30 15 November 17, 2022 11:00pm take 1 tablet [facility] every six hours as needed [...] Translations: [Other ill-defined heart diseases] Onset: 05-18-19 05-18-2023 Chronic Other and unspecified benign neoplasm [...] Translations: [Pain in joint, lower leg] Onset: 11-21-1903-25-2023 Episodic Other non-traumatic joint disorders (5 sources) Hip pain; Translations: [Pain in left hip] Onset: 05-18-19 24 05-18-2023 Episodic Other nutritional; endocrine; and metabolic disorders [...] 02-20-2022 Episodic Other aftercare (1 source) Other snf (current) drug therapy; Translations: [OTH SNF CURRENT [...] on 03-23-2023 Amphetamines Ql (U) Negative Negative [facility] Barbiturates [Presence] in U rine by Screen methodOrdered By: Jace Graham on 03-23-2023 Barbiturates Screen Ql (U) Negative Negative [facility] Benzodiazepines Screen Ql (U )Ordered By: Jace Graham on 03-23-2023 Benzodiazepines Ql (U) Negative Negative [facility] Benzoylecgonine [Presence] i n Urine by Screen methodOrdered By: Jace Graham on 03-23-2023 Benzoylecgonine Screen Ql (U) Negative Negative [facility] Cannabinoids [Presence] in U rine by Screen methodOrdered By: Jace Graham on 03-23-2023 Cannabinoids Screen Ql (U) Negative Negative [facility] Comment on above: These are unconfirme d results and should not be used for legal purposes. Drug Cut-Off Concentration: AMPH 1000 ng/mL ELKIN 200 ng/mL ATIYA 200 ng/mL COCM 300 ng/mL OP 300 ng/mL PCP 25 ng/mL THC 20 ng/mL Drug Screen,Urineon 03-23-20 Amphetamine Screen,Urine Negative Normal Negative [facility] Comment on above: Performed By: #### U RDS #### [address] Barbiturate Screen,Urine Negative Normal Negative [facility] Comment on above: Performed By: #### U RDS #### [place] [address] [place] Benzodiazepines Screen,Urine Negative Normal Negative [facility] Comment on above: Performed By: #### U RDS #### [address] Cannabinoid Screen,Urine Negative Normal Negative [facility] Comment on above: Result Comment: Thes e are unconfirmed results and should not be used for legal purposes. Drug Cut-Off Concentration: AMPH 1000 ng/mL ELKIN 200 ng/mL ATIYA 200 ng/mL COCM 300 ng/mL OP 300 ng/mL PCP 25 ng/mL THC 20 ng/mL PERFORMED BY: [place] [address] PATHOLOGIST FACILITY MANAGER AN CURRY M.D. Performed By: #### U RDS #### [place] [address] [place] Cocaine Screen,Urine Negative Normal Negative [facility] Comment on above: Performed By: #### U RDS #### [place] [address] [place] Opiate Screen,Urine Negative Normal Negative [facility] Comment on above: Performed By: #### U RDS #### [address] [place] [address] [facility] Phencyclidine Screen,Urine Negative Normal Negative [facility] Comment on above: Performed By: #### U RDS #### [facility] [address] [id number] [facility] Opiates [Presence] in Urine by Screen methodOrdered By: Jace Graham on 03-23-2023 Opiates Screen Ql (U) Negative Negative [facility] Phencyclidine Screen Ql (U)O rdered By: Jace Graham on 03-23-2023 Phencyclidine Ql (U) Negative Negative [facility] Cholesterol [Mass/volume] in Serum or PlasmaOrdered By: Eduardo Monk on 11-18-2022 Cholesterol [Mass/Vol] 159 mg/dL Normal 140-200 [facility] Comment on above: Chol less than 200 m g/dl low riskChol 201-239 mg/dl borderline riskChol 240 mg/dl and greater high risk Order Comment: teri barney to tomorr morning Result Comment: Chol less than 200 mg/dl low risk Chol 201-239 mg/dl borderline risk Chol 240 mg/dl and greater high risk Performed By: #### L IPID #### [facility] [address] [id number] [facility] Cholesterol in LDL Calc [Mas s/Vol]Ordered By: Eduardo Monk on 11-18-2022 Cholesterol in LDL [Mass/Vol] 84 mg/dL 0-100 [facility] Comment on above: LDL ATP III CLASSIFI CATIONLDL less than 100 mg/dL OptimalLDL 100-129 mg/dL Near or above optimalLDL 130-159 mg/dL Borderline highLDL 160-189 mg/dL HighLDL greater than 189 mg/dL Very high Cholesterol in VLDL Calc [Ma ss/Vol]Ordered By: Eduardo Monk on 11-18-2022 Cholesterol in VLDL [Mass/Vol] 28 mg/dL [facility] Lipid Panelon 11-18-2022 LDL Cholesterol,Calculated 84 mg/dL Normal 0-100 [facility] Comment on above: Order Comment: teri barney to tomorr morning Result Comment: LDL ATP III CLASSIFICATION LDL less than 100 mg/dL Optimal LDL 100-129 mg/dL Near or above optimal LDL 130-159 mg/dL Borderline high LDL 160-189 mg/dL High LDL greater than 189 mg/dL Very high Performed By: #### L IPID #### [facility] [address] Triglyceride w/Reflex 144 mg/dL Normal 0-149 [facility] Comment on above: Order Comment: teri barney to tomorr morning Result Comment: TRIG ATP III CLASSIFICATION TRIG less than 150 mg/dL Normal TRIG 150-199 mg/dL Borderline high TRIG 200-500 mg/dL High TRIG greater than 500 mg/dL Very high Standard traceable to the Center for Disease Conrtrol and Prevention (CDC) test method. Performed By: #### L IPID #### [facility] [address] VLDL CHOLESTEROL 28 mg/dL Normal [facility] Comment on above: Order Comment: teri barney to Performed By: #### L IPID #### [facility] [address] Serum or plasma high density lipoprotein (HDL) cholesterol measurementOrdered By: Eduardo Monk on 11-18-2022 Cholesterol in HDL [Mass/Vol] 46 mg/dL Normal 23-92 [facility] Comment on above: HDL CHOL ATP-III CLA SSIFICATION Cardiovascular RiskHDL > or equal to 60 mg/dL LOWHDL < 40 mg/dL HIGH Order Comment: teri barney to Result Comment: HDL CHOL ATP-III CLASSIFICATION Cardiovascular Risk HDL > or equal to 60 mg/dL LOW HDL < 40 mg/dL HIGH Performed By: #### L IPID #### [facility] [address] Serum or plasma total choles terol/high density lipoprotein (HDL) cholesterol mass ratOrdered By: Eduardo Monk on 11-18-2022 Cholesterol.total/Chol esterol in HDL [Mass ratio] 3.5 {ratio} Normal <5.0 [facility] Comment on above: Order Comment: teri barney to Result Comment: PERF ORMED BY: [place] [address] PATHOLOGIST FACILITY MANAGER AN CURRY M.D. Performed By: #### L IPID #### [address] Thyrotropin [Units/volume] i n Serum or PlasmaOrdered By: Eduardo Monk on 11-18-2022 TSH Qn 2.13 m[IU]/L Normal 0.45-5.33 [facility] Comment on above: Performed By: #### T SH3, [id number] #### [address] Triglyceride [Mass/volume] i n Serum or PlasmaOrdered By: Eduardo Monk on 11-18-2022 Triglyceride [Mass/Vol] 144 mg/dL 0-149 [facility] Comment on above: TRIG ATP III CLASSIF ICATIONTRIG less than 150 mg/dL NormalTRIG 150-199 mg/dL Borderline highTRIG 200-500 mg/dL High TRIG greater than 500 mg/dL Very highStandard traceable to the Center for Disease Conrtrol and Prevention (CDC) test method. Vitamin D 25 Hydroxy Totalon 11-18-2022 Vitamin D 25 Hydroxy Total 50.4 ng/mL Normal 30-100 [facility] Comment on above: Result Comment: SKYLER MIN D STATUS 25(OH)VITAMIN D RANGE (ng/mL) Deficient <20 Insufficient 20 to <30 Sufficient 30 to 100 Reference: Bin MF,Lakshmi NC, Cristian SMART, et al. Evaluation,treatment, and prevention of vitamin D deficiency; an Endocrine Society clinical practice guideline. JCEM. 2010; 96(7):1911-30. PERFORMED BY: [place] [address] PATHOLOGIST FACILITY MANAGER AN CURRY M.D. Performed By: #### T SH3, [id number] #### [place] [id number] [facility] Vitamin D+Metabolites [Mass/ volume] in Serum or PlasmaOrdered By: Eduardo Monk on 11-18-2022 Vitamin D+Metabolites [Mass/Vol] 50.4 ng/mL 30-100 [facility] Comment on above: VITAMIN D STATUS 25( [place])VITAMIN D RANGE (ng/mL) Deficient <20 Insufficient 20 to <30Sufficient 30 to 100Reference: Bin MF,Lakshmi NC, Cristian SMART, et al. Evaluation,treatment, and prevention of vitamin D deficiency; an Endocrine Society clinical practice guideline. JCEM. 2010; 96(7):1911-30. CBC AUTO DIFFon 07-25-2022 BASO # 0.1 103/ul Normal 0.0-0.1 [facility] Comment on above: Performed By: #### A 1C #### [facility] [address] [place] [address] Dr. Bebeto Alvarado Basophils/100 WBC (Bld) 0.6 % Normal 0.2-2.0 [facility] Comment on above: Performed By: #### A 1C #### [facility] [address] [place] [address] Dr. Bebeto Alvarado EO # 0.2 103/ul Normal 0.0-0.7 [facility] Comment on above: Performed By: #### A 1C #### [facility] [address] [place] [address] Dr. Bebeto Alvarado Eosinophils/100 WBC (Bld) 2.3 % Normal 0.9-7.0 [facility] Comment on above: Performed By: #### A 1C #### [facility] [address] [place] [address] Dr. Bebeto Alvarado Erythrocyte distribution width (RBC) [Ratio] 13.8 % Normal 11.0-15.0 [facility] Comment on above: Performed By: #### A 1C #### [facility] [address] [place] [address] Dr. Bebeto Alvarado Hematocrit (Bld) [Volume fraction] 41.2 % Normal 36.0-48.0 [facility] Comment on above: Performed By: #### A 1C #### [facility] [address] [place] [address] Dr. Bebeto Alvarado Hemoglobin (Bld) [Mass/Vol] 13.2 g/dL Normal 12.0-16.0 [facility] Comment on above: Performed By: #### A 1C #### [facility] [address] [place] [address] Dr. Bebeto Alvarado IG # 0.03 10e3/ul Normal 0.00-0.03 [facility] Comment on above: Performed By: #### A 1C #### [facility] [address] [place] [address] Dr. Bebeto Alvarado IG % 0.4 % Normal 0.0-0.5 [facility] Comment on above: Performed By: #### A 1C #### [facility] [address] [place] [address] Dr. Bebeto Alvarado LYMPH # 2.1 103/ul Normal 1.2-3.8 [facility] Comment on above: Performed By: #### A 1C #### [facility] [address] [place] [address] Dr. Bebeto Alvarado Lymphocytes/100 WBC (Bld) 25.9 % Normal 20.5-60.0 [facility] Comment on above: Performed By: #### A 1C #### [facility] [address] [place] [address] Dr. Bebeto Alvarado MANUAL DIFF REQ NO Normal [facility] Comment on above: Performed By: #### A 1C #### [facility] [address] [place] [address] Dr. Bebeto Alvarado MCH (RBC) [Entitic mass] 28.0 pg Normal 26.7-34.0 [facility] Comment on above: Performed By: #### A 1C #### [facility] [address] [place] [address] Dr. Bebeto Alvarado MCHC (RBC) [Mass/Vol] 32.0 g/dL Normal 29.9-35.2 [facility] Comment on above: Performed By: #### A 1C #### [facility] [address] [place] [address] Dr. Bebeto Alvarado MCV (RBC) [Entitic vol] 87.5 fL Normal 81.0-99.0 [facility] Comment on above: Performed By: #### A 1C #### [facility] [address] [place] [address] Dr. Bebeto Alvarado MONO # 0.5 103/ul Normal 0.3-0.8 [facility] Comment on above: Performed By: #### A 1C #### [facility] [address] [place] [address] Dr. Bebeto Alvarado Monocytes/100 WBC (Bld) 6.6 % Normal 1.7-12.0 [facility] Comment on above: Performed By: #### A 1C #### [facility] [address] [place] [address] Dr. Bebeto Alvarado NEUT # 5.1 103/ul Normal 1.4-6.5 [facility] Comment on above: Performed By: #### A 1C #### [facility] [address] [place] [address] Dr. Bebeto Alvarado Neutrophils/100 WBC (Bld) 64.2 % Normal 43.0-75.0 [facility] Comment on above: Performed By: #### A 1C #### [facility] [address] [place] [address] Dr. Bebeto Alvarado Platelet mean volume (Bld) [Entitic vol] 11.2 fL Normal 9.5-13.5 [facility] Comment on above: Performed By: #### A 1C #### [facility] [address] [place] [address] Dr. Bebeto Alvarado PLT 252 103/ul Normal 150-450 [facility] Comment on above: Performed By: #### A 1C #### [facility] [address] [place] [address] Dr. Bebeto Alvarado RBC 4.71 106/ul Normal 4.20-5.40 [facility] Comment on above: Performed By: #### A 1C #### [facility] [address] [place] [address] Dr. Bebeto Alvarado WBC 8.0 103/ul Normal 4.0-11.0 [facility] Comment on above: Performed By: #### A 1C #### [facility] [address] [address] [address] Bebeto Alvarado GLYCOHEMOGLOBIN A1Con 2022 ADA RECOMMENDATION SEE BELOW Normal [facility] Comment on above: Result Comment: ADA RECOMMENDED LIMIT 4.0 - 6.0 ADA THERAPEUTIC TARGET < 7.0 ACTION SUGGESTED > 7.0 Performed By: #### A 1C #### [facility] [address] [place] [address] Dr. Bebeto Alvarado Glucose [Mass/Vol] 114 mg/dL Normal [facility] Comment on above: Performed By: #### A 1C #### [facility] [address] [place] [address] Dr. Bebeto Alvarado HbA1c (Bld) [Mass fraction] 5.6 % Normal 4.5-6.2 [facility] Comment on above: Performed By: #### A 1C #### [facility] [address] [place] [address] Dr. Bebeto Alvarado IRONon 07-25-2022 Iron [Mass/Vol] 60.0 ug/dL Normal 50.0-170.0 [facility] Comment on above: Performed By: #### V ITB12, IRON #### [facility] [address] [place] [address] Dr. Bebeto Alvarado LIPID PROFILEon 07-25-2022 CHOL-HDL RATIO NORM SEE BELOW Normal [facility] Comment on above: Result Comment: 3.3 - 4.4 LOW RISK 4.4 - 7.1 AVERAGE RISK 7.1 - 11.0 MODERATE RISK >11.0 HIGH RISK Performed By: #### C MP, LIPID #### [facility] [address] [place] [address] Dr. Bebeto Alvarado Cholesterol [Mass/Vol] 144 mg/dL Normal <=200 [facility] Comment on above: Performed By: #### C MP, LIPID #### [facility] [address] [place] [address] Dr. Bebeto Alvarado Cholesterol in HDL [Mass/Vol] 39 mg/dL Critically low 40-60 [facility] Comment on above: Performed By: #### C MP, LIPID #### [facility] [address] [address] [address] Bebeto Alvarado Cholesterol in LDL [Mass/Vol] 74.6 mg/dL Normal [facility] Comment on above: Performed By: #### C MP, LIPID #### [facility] [address] [address] [address] Bebeto Alvarado Cholesterol.total/Chol esterol in HDL [Mass ratio] 3.7 {ratio} Normal [facility] Comment on above: Performed By: #### C MP, LIPID #### [facility] [address] [place] [address] Dr. Bebeto Alvarado HDL NORMAL > or = 60 mg/dl - LO W CARDIOVASCULAR RISK <40 mg/dl - HIGH CARDIOVASCULAR RISK Normal [facility] Comment on above: Performed By: #### C MP, LIPID #### [facility] [address] [place] [address] Dr. Bebeto Alvarado LDL CALC NORMAL SEE BELOW Normal [facility] Comment on above: Result Comment: <100 mg/dl OPTIMAL 100 - 129 mg/dl NEAR OR ABOVE OPTIMAL 130 - 159 mg/dl BORDERLINE HIGH 160 - 189 mg/dl HIGH >190 mg/dl VERY HIGH Performed By: #### C MP, LIPID #### [facility] [address] [place] [address] Dr. Bebeto Alvarado Triglyceride [Mass/Vol] 152 mg/dL Critically high <=150 [facility] Comment on above: Performed By: #### C MP, LIPID #### [facility] [address] [place] [address] Dr. Bebeto Alvarado VLDL CALC 30.4 mg/dL Normal [facility] Comment on above: Performed By: #### C MP, LIPID #### [facility] [address] [place] [address] Dr. Bebeto Alvarado PROF 14(COMP METB)on 023 Albumin [Mass/Vol] 3.7 g/dL Normal 3.4-5.0 [facility] Comment on above: Performed By: #### C MP, LIPID #### [facility] [address] [place], [place] [id number] Dr. Bebeto Alvarado Albumin/Globulin [Mass ratio] 0.9 {ratio} Normal [facility] Comment on above: Performed By: #### C MP, LIPID #### [facility] [address] [place] [address] Dr. Bebeto Alvarado ALP [Catalytic activity/Vol] 90 U/L Normal 46-116 [facility] Comment on above: Performed By: #### C MP, LIPID #### [facility] [address] [place] [address] Dr. Bebeto Alvarado ALT [Catalytic activity/Vol] 38 U/L Normal 14-59 [facility] Comment on above: Performed By: #### C MP, LIPID #### [facility] [address] [place] [address] Dr. Bebeto Alvarado Anion gap [Moles/Vol] 12.1 mmol/L Normal [facility] Comment on above: Performed By: #### C MP, LIPID #### [facility] [address] [place] [address] Dr. Bebeto Alvarado AST [Catalytic activity/Vol] 26 U/L Normal 15-37 [facility] Comment on above: Performed By: #### C MP, LIPID #### [facility] [address] [place] [address] Dr. Bebeto Alvarado Bilirubin [Mass/Vol] 0.3 mg/dL Normal 0.2-1.0 [facility] Comment on above: Performed By: #### C MP, LIPID #### [facility] [address] [place] [address] Dr. Bebeto Alvarado Calcium [Mass/Vol] 9.3 mg/dL Normal 8.5-10.1 [facility] Comment on above: Performed By: #### C MP, LIPID #### [facility] [address] [place] [address] Dr. Bebeto Alvarado Chloride [Moles/Vol] 107 mmol/L Normal 98-107 [facility] Comment on above: Performed By: #### C MP, LIPID #### [facility] [address] [place] [address] Dr. Bebeto Alvarado CO2 [Moles/Vol] 27.9 mmol/L Normal 21.0-32.0 [facility] Comment on above: Performed By: #### C MP, LIPID #### [facility] [address] [address] [address] Bebeto Alvarado Creatinine [Mass/Vol] 0.95 mg/dL Normal 0.55-1.02 [facility] Comment on above: Performed By: #### C MP, LIPID #### [facility] [address] [address] [address] Bebeto Alvarado EGFR-AF GHANAIAN >60 Normal >=60 [facility] Comment on above: Performed By: #### C MP, LIPID #### [facility] [address] [address] [address] Bebeto Alvarado EGFR-NON AF GHANAIAN 60 mL/min/1.73m2 Normal >=60 [facility] Comment on above: Performed By: #### C MP, LIPID #### [facility] [address] [address] [address] Bebeto Alvarado Globulin (S) [Mass/Vol] 3.9 g/dL Normal [facility] Comment on above: Performed By: #### C MP, LIPID #### [facility] [address] [address] [address] Bebeto Alvarado Glucose [Mass/Vol] 108 mg/dL Critically high 74-106 [facility] Comment on above: Performed By: #### C MP, LIPID #### [facility] [address] [address] [address] Bebeto Alvarado Potassium [Moles/Vol] 4.0 mmol/L Normal 3.5-5.1 [facility] Comment on above: Performed By: #### C MP, LIPID #### [facility] [address] [address] [address] Bebeto Alvarado Protein [Mass/Vol] 7.6 g/dL Normal 6.4-8.2 [facility] Comment on above: Performed By: #### C MP, LIPID #### [facility] [address] [place] [address] Dr. Bebeto Alvarado Sodium [Moles/Vol] 143 mmol/L Normal 136-145 [facility] Comment on above: Performed By: #### C MP, LIPID #### [facility] [address] [place] [address] Dr. Bebeto Alvarado Urea nitrogen [Mass/Vol] 15.0 mg/dL Normal 7.0-18.0 [facility] Comment on above: Performed By: #### C MP, LIPID #### [facility] [address] [place] [address] Dr. Bebeto Alvarado Urea nitrogen/Creatinine [Mass ratio] 15.8 mg/mg Normal [facility] Comment on above: Performed By: #### C MP, LIPID #### [facility] [address] [place] [address] Dr. Bebeto Alvarado UA RANDOM W/MICROSCOPICon BACTERIA NONE SEEN Normal NONE SEEN [facility] Comment on above: Performed By: #### A 1C #### [facility] [address] [place] [address] Dr. Bebeto Alvarado Bilirubin Ql (U) Negative Normal NEGATIVE [facility] Comment on above: Performed By: #### A 1C #### [facility] [address] [place] [address] Dr. Bebeto Alvarado CAST NONE SEEN Normal NONE [facility] Comment on above: Performed By: #### A 1C #### [facility] [address] [place] [address] Dr. Bebeto Alvarado Clarity (U) CLEAR Normal CLEAR [facility] Comment on above: Performed By: #### A 1C #### [facility] [address] [place] [address] Dr. Bebeto Alvarado Color (U) YELLOW Normal YELLOW [facility] Comment on above: Performed By: #### A 1C #### [facility] [address] [place] [address] Dr. Bebeto Alvarado Crystals LM Nom (Urine sed) NONE SEEN Normal NONE SEEN [facility] Comment on above: Performed By: #### A 1C #### [facility] [address] [place] [address] Dr. Bebeto Alvarado Epithelial cells LM Ql (Urine sed) NONE SEEN Normal NONE SEEN /RARE [facility] Comment on above: Performed By: #### A 1C #### [facility] [address] [place] [address] Dr. Bebeto Alvarado Glucose Ql (U) Negative Normal NEGATIVE [facility] Comment on above: Performed By: #### A 1C #### [facility] [address] [place] [address] Dr. Bebeto Alvarado Hemoglobin Ql (U) Negative Normal NEGATIVE [facility] Comment on above: Performed By: #### A 1C #### [facility] [address] [place] [address] Dr. Bebeto Alvarado Ketones Ql (U) Negative Normal NEGATIVE [facility] Comment on above: Performed By: #### A 1C #### [facility] [address] [place] [address] Dr. Bebeto Alvarado LEUKOCYTES Negative Normal NEGATIVE [facility] Comment on above: Performed By: #### A 1C #### [facility] [address] [place] [address] Dr. Bebeto Alvarado MUCOUS NONE SEEN Normal NONE SEEN [facility] Comment on above: Performed By: #### A 1C #### [facility] [address] [place] [address] Dr. Bebeto Alvarado Nitrite Ql (U) Negative Normal NEGATIVE [facility] Comment on above: Performed By: #### A 1C #### [facility] [address] [place] [address] Dr. Bebeto Alvarado pH (U) 5.5 [pH] Normal 5-9 [facility] Comment on above: Performed By: #### A 1C #### [facility] [address] [place] [address] Dr. Bebeto Alvarado RBC NONE SEEN Abnormal 0-2 [facility] Comment on above: Performed By: #### A 1C #### [facility] [address] [place] [address] Dr. Bebeto Alvarado SPEC GRAVITY 1.030 Abnormal 1.005-<=1.[address] [place] [address] Comment on above: Performed By: #### A 1C #### [facility] [address] [place] [address] Dr. Bebeto Alvarado UA PROTEIN Negative Normal NEGATIVE/ TRACE [facility] Comment on above: Performed By: #### A 1C #### [facility] [address] [place] [address] Dr. Bebeto Alvarado Urobilinogen Qn (U) 0.2 {Katerin'U}/dL Normal 0.2 - 1. 0 [facility] Comment on above: Performed By: #### A 1C #### [facility] [address] [place] [address] Dr. Bebeto Alvarado WBC NONE SEEN Normal NONE SEEN [facility] Comment on above: Performed By: #### A 1C #### [facility] [address] [place] [address] Dr. Bebeto Alvarado VITAMIN B12on 07-25-2022 Cobalamin (Vitamin B12) [Mass/Vol] 1684.0 pg/mL Critically high 193.0-986.0 [facility] Comment on above: Performed By: #### V ITB12, IRON #### [facility] [address] [place] [address] Dr. Bebeto Alvarado PROF CHEM 8 (BAS METB)on Anion gap [Moles/Vol] 12.2 mmol/L Normal [facility] Comment on above: Performed By: #### B MP #### [facility] [address] [place] [address] Dr. Bebeto Alvarado Calcium [Mass/Vol] 8.9 mg/dL Normal 8.5-10.1 [facility] Comment on above: Performed By: #### B MP #### [facility] [address] [place] [address] Dr. Bebeto Alvarado Chloride [Moles/Vol] 105 mmol/L Normal 98-107 [facility] Comment on above: Performed By: #### B MP #### [facility] [address] [place] [address] Dr. Bebeto Alvarado CO2 [Moles/Vol] 29.6 mmol/L Normal 21.0-32.0 [facility] Comment on above: Performed By: #### B MP #### [facility] [address] [address] [address] Bebeto Alvarado Creatinine [Mass/Vol] 0.95 mg/dL Normal 0.55-1.02 [facility] Comment on above: Performed By: #### B MP #### [facility] [address] [address] [address] Bebeto Alvarado EGFR-AF GHANAIAN >60 Normal >=60 [facility] Comment on above: Performed By: #### B MP #### [facility] [address] [address] [address] Bebeto Alvarado EGFR-NON AF GHANAIAN 60 mL/min/1.73m2 Normal >=60 [facility] Comment on above: Performed By: #### B MP #### [facility] [address] [address] [address] Bebeto Alvarado Glucose [Mass/Vol] 101 mg/dL Normal 74-106 [facility] Comment on above: Performed By: #### B MP #### [facility] [address] [address] [address] Bebeto Alvarado Potassium [Moles/Vol] 3.8 mmol/L Normal 3.5-5.1 [facility] Comment on above: Performed By: #### B MP #### [facility] [address] [address] [address] Bebeto Alvarado Sodium [Moles/Vol] 143 mmol/L Normal 136-145 [facility] Comment on above: Performed By: #### B MP #### [facility] [address] [address] [address] Bebeto Alvarado Urea nitrogen [Mass/Vol] 16.0 mg/dL Normal 7.0-18.0 [facility] Comment on above: Performed By: #### B MP #### [facility] [address] [address] [address] Bebeto Alvarado Urea nitrogen/Creatinine [Mass ratio] 16.8 mg/mg Normal [facility] Comment on above: Performed By: #### B MP #### [facility] [address] [place] [address] Dr. Bebeto Alvarado CBC AUTO DIFFon 11-21-2021 BASO # 0.1 103/ul Normal 0.0-0.1 [facility] Comment on above: Performed By: #### A 1C #### [facility] [address] [place] [address] Dr. Bebeto Alvarado Basophils/100 WBC (Bld) 1.0 % Normal 0.2-2.0 [facility] Comment on above: Performed By: #### A 1C #### [facility] [address] [place] [address] Dr. Bebeto Alvarado EO # 0.2 103/ul Normal 0.0-0.7 [facility] Comment on above: Performed By: #### A 1C #### [facility] [address] [place] [address] Dr. Bebeto Alvarado Eosinophils/100 WBC (Bld) 3.3 % Normal 0.9-7.0 [facility] Comment on above: Performed By: #### A 1C #### [facility] [address] [place] [address] Dr. Bebeto Alvarado Erythrocyte distribution width (RBC) [Ratio] 13.8 % Normal 11.0-15.0 [facility] Comment on above: Performed By: #### A 1C #### [facility] [address] [place] [address] Dr. Bebeto Alvarado Hematocrit (Bld) [Volume fraction] 38.8 % Normal 36.0-48.0 [facility] Comment on above: Performed By: #### A 1C #### [facility] [address] [place] [address] Dr. Bebeto Alvarado Hemoglobin (Bld) [Mass/Vol] 12.5 g/dL Normal 12.0-16.0 [facility] Comment on above: Performed By: #### A 1C #### [facility] [address] [place] [address] Dr. Bebeto Alvarado IG # 0.02 10e3/ul Normal 0.00-0.03 [facility] Comment on above: Performed By: #### A 1C #### [facility] [address] [place] [address] Dr. Bebeto Alvarado IG % 0.3 % Normal 0.0-0.5 [facility] Comment on above: Performed By: #### A 1C #### [facility] [address] [place] [address] Dr. Bebeto Alvarado LYMPH # 1.9 103/ul Normal 1.2-3.8 [facility] Comment on above: Performed By: #### A 1C #### [facility] [address] [place] [address] Dr. Bebeto Alvarado Lymphocytes/100 WBC (Bld) 29.6 % Normal 20.5-60.0 [facility] Comment on above: Performed By: #### A 1C #### [facility] [address] [place] [address] Dr. Bebeto Alvarado MANUAL DIFF REQ NO Normal [facility] Comment on above: Performed By: #### A 1C #### [facility] [address] [place] [address] Dr. Bebeto Alvarado MCH (RBC) [Entitic mass] 28.0 pg Normal 26.7-34.0 [facility] Comment on above: Performed By: #### A 1C #### [facility] [address] [place] [address] Dr. Bebeto Alvarado MCHC (RBC) [Mass/Vol] 32.2 g/dL Normal 29.9-35.2 [facility] Comment on above: Performed By: #### A 1C #### [facility] [address] [place] [address] Dr. Bebeto Alvarado MCV (RBC) [Entitic vol] 86.8 fL Normal 81.0-99.0 [facility] Comment on above: Performed By: #### A 1C #### [facility] [address] [place] [address] Dr. Bebeto Alvarado MONO # 0.4 103/ul Normal 0.3-0.8 [facility] Comment on above: Performed By: #### A 1C #### [facility] [address] [place] [address] Dr. Bebeto Alvarado Monocytes/100 WBC (Bld) 5.7 % Normal 1.7-12.0 [facility] Comment on above: Performed By: #### A 1C #### [facility] [address] [place] [address] Dr. Bebeto Alvarado NEUT # 3.8 103/ul Normal 1.4-6.5 [facility] Comment on above: Performed By: #### A 1C #### [facility] [address] [place] [address] Dr. Bebeto Alvarado Neutrophils/100 WBC (Bld) 60.1 % Normal 43.0-75.0 [facility] Comment on above: Performed By: #### A 1C #### [facility] [address] [place] [address] Dr. Bebeto Alvarado Platelet mean volume (Bld) [Entitic vol] 11.0 fL Normal 9.5-13.5 [facility] Comment on above: Performed By: #### A 1C #### [facility] [address] [place] [address] Dr. Bebeto Alvarado PLT 264 103/ul Normal 150-450 [facility] Comment on above: Performed By: #### A 1C #### [facility] [address] [place] [address] Dr. Bebeto Alvarado RBC 4.47 106/ul Normal 4.20-5.40 [facility] Comment on above: Performed By: #### A 1C #### [facility] [address] [place] [address] Dr. Bebeto Alvarado WBC 6.3 103/ul Normal 4.0-11.0 [facility] Comment on above: Performed By: #### A 1C #### [facility] [address] [place] [address] Dr. Bebeto Alvarado GLYCOHEMOGLOBIN A1Con 2021 ADA RECOMMENDATION SEE BELOW Normal [facility] Comment on above: Result Comment: ADA RECOMMENDED LIMIT 4.0 - 6.0 ADA THERAPEUTIC TARGET < 7.0 ACTION SUGGESTED > 7.0 Performed By: #### A 1C #### [facility] [address] [place] [address] Dr. Bebeto Alvarado Glucose [Mass/Vol] 105 mg/dL Normal [facility] Comment on above: Performed By: #### A 1C #### [facility] [address] [place] [address] Dr. Bebeto Alvarado HbA1c (Bld) [Mass fraction] 5.3 % Normal 4.5-6.2 [facility] Comment on above: Performed By: #### A 1C #### [facility] [address] [place] [address] Dr. Bebeto Alvarado IRONon 11-21-2021 Iron [Mass/Vol] 59.0 ug/dL Normal 50.0-170.0 [facility] Comment on above: Performed By: #### A 1C #### [facility] [address] [place] [address] Dr. Bebeto Alvarado LIPID PROFILEon 11-21-2021 CHOL-HDL RATIO NORM SEE BELOW Normal [facility] Comment on above: Result Comment: 3.3 - 4.4 LOW RISK 4.4 - 7.1 AVERAGE RISK 7.1 - 11.0 MODERATE RISK >11.0 HIGH RISK Performed By: #### C MP, LIPID #### [facility] [address] [place] [address] Dr. Bebeto Alvarado Cholesterol [Mass/Vol] 139 mg/dL Normal <=200 [facility] Comment on above: Performed By: #### C MP, LIPID #### [facility] [address] [place] [address] Dr. Bebeto Alvarado Cholesterol in HDL [Mass/Vol] 35 mg/dL Critically low 40-60 [facility] Comment on above: Performed By: #### C MP, LIPID #### [facility] [address] [place] [address] Dr. Bebeto Alvarado Cholesterol in LDL [Mass/Vol] 69.6 mg/dL Normal [facility] Comment on above: Performed By: #### C MP, LIPID #### [facility] [address] [place] [address] Dr. Bebeto Alvarado Cholesterol.total/Chol esterol in HDL [Mass ratio] 4.0 {ratio} Normal [facility] Comment on above: Performed By: #### C MP, LIPID #### [facility] [address] [address] [address] Bebeto Alvarado HDL NORMAL > or = 60 mg/dl - LO W CARDIOVASCULAR RISK <40 mg/dl - HIGH CARDIOVASCULAR RISK Normal [facility] Comment on above: Performed By: #### C MP, LIPID #### [facility] [address] [address] [address] Bebeto Alvarado LDL CALC NORMAL SEE BELOW Normal [facility] Comment on above: Result Comment: <100 mg/dl OPTIMAL 100 - 129 mg/dl NEAR OR ABOVE OPTIMAL 130 - 159 mg/dl BORDERLINE HIGH 160 - 189 mg/dl HIGH >190 mg/dl VERY HIGH Performed By: #### C MP, LIPID #### [facility] [address] [address] [address] Bebeto Alvarado Triglyceride [Mass/Vol] 172 mg/dL Critically high <=150 [facility] Comment on above: Performed By: #### C MP, LIPID #### [facility] [address] [address] [address] Bebeto Alvarado VLDL CALC 34.4 mg/dL Normal [facility] Comment on above: Performed By: #### C MP, LIPID #### [facility] [address] [address] [address] Bebeto Alvarado PROF 14(COMP METB)on 022 Albumin [Mass/Vol] 3.8 g/dL Normal 3.4-5.0 [facility] Comment on above: Performed By: #### C MP, LIPID #### [facility] [address] [address] [address] Bebeto Alvarado Albumin/Globulin [Mass ratio] 1.1 {ratio} Normal [facility] Comment on above: Performed By: #### C MP, LIPID #### [facility] [address] [address] [address] Bebeto Alvarado ALP [Catalytic activity/Vol] 96 U/L Normal 46-116 [facility] Comment on above: Performed By: #### C MP, LIPID #### [facility] [address] [address] [address] Bebeto Alvarado ALT [Catalytic activity/Vol] 25 U/L Normal 14-59 [facility] Comment on above: Performed By: #### C MP, LIPID #### [facility] [address] [address] [address] Bebeto Alvarado Anion gap [Moles/Vol] 11.8 mmol/L Normal Th [facility] Comment on above: Performed By: #### C MP, LIPID #### [facility] [address] [address] [address] Bebeto Alvarado AST [Catalytic activity/Vol] 20 U/L Normal 15-37 [facility] Comment on above: Performed By: #### C MP, LIPID #### [facility] [address] [address] [address] Bebeto Alvarado Bilirubin [Mass/Vol] 0.4 mg/dL Normal 0.2-1.0 [facility] Comment on above: Performed By: #### C MP, LIPID #### [facility] [address] [address] [address] Bebeto Alvarado Calcium [Mass/Vol] 8.8 mg/dL Normal 8.5-10.1 [facility] Comment on above: Performed By: #### C MP, LIPID #### [facility] [address] [address] [address] Bebeto Alvarado Chloride [Moles/Vol] 106 mmol/L Normal 98-107 [facility] Comment on above: Performed By: #### C MP, LIPID #### [facility] [address] [address] [address] Bebeto Alvarado CO2 [Moles/Vol] 27.0 mmol/L Normal 21.0-32.0 [facility] Comment on above: Performed By: #### C MP, LIPID #### [facility] [address] [address] [address] Bebeto Alvarado Creatinine [Mass/Vol] 0.97 mg/dL Normal 0.55-1.02 [facility] Comment on above: Performed By: #### C MP, LIPID #### [facility] [address] [address] [address] Bebeto Alvarado EGFR-AF GHANAIAN >60 Normal >=60 [facility] Comment on above: Performed By: #### C MP, LIPID #### [facility] [address] [address] [address] Bebeto Alvarado EGFR-NON AF GHANAIAN 59 mL/min/1.73m2 Critically low >=60 [facility] Comment on above: Performed By: #### C MP, LIPID #### [facility] [address] [address] [address] Bebeto Alvarado Globulin (S) [Mass/Vol] 3.4 g/dL Normal [facility] Comment on above: Performed By: #### C MP, LIPID #### [facility] [address] [address] [address] Bebeto Alvarado Glucose [Mass/Vol] 103 mg/dL Normal 74-106 [facility] Comment on above: Performed By: #### C MP, LIPID #### [facility] [address] [address] [address] Bebeto Alvarado Potassium [Moles/Vol] 3.8 mmol/L Normal 3.5-5.1 [facility] Comment on above: Performed By: #### C MP, LIPID #### [facility] [address] [address] [address] Bebeto Alvarado Protein [Mass/Vol] 7.2 g/dL Normal 6.4-8.2 [facility] Comment on above: Performed By: #### C MP, LIPID #### [facility] [address] [address] [address] Bebeto Alvarado Sodium [Moles/Vol] 141 mmol/L Normal 136-145 [facility] Comment on above: Performed By: #### C MP, LIPID #### [facility] [address] [address] [address] Bebeto Alvarado Urea nitrogen [Mass/Vol] 11.0 mg/dL Normal 7.0-18.0 [facility] Comment on above: Performed By: #### C MP, LIPID #### [facility] [address] [place] [address] Dr. Bebeto Alvarado Urea nitrogen/Creatinine [Mass ratio] 11.3 mg/mg Normal [facility] Comment on above: Performed By: #### C MP, LIPID #### [facility] [address] [place] [address] Dr. Bebeto Alvarado URIC ACID SERUMon 11-21-2021 Urate [Mass/Vol] 7.3 mg/dL Critically high 2.6-6.0 [facility] Comment on above: Performed By: #### A 1C #### [facility] [address] [place] [address] Dr. Bebeto Alvarado VITAMIN B12on 11-21-2021 Cobalamin (Vitamin B12) [Mass/Vol] 2123.0 pg/mL Critically high 193.0-986.0 [facility] Comment on above: Performed By: #### A 1C #### [facility] [address] [place] [address] Dr. Bebeto Alvarado Physician Referralon 022 Physician Referral [phone] [id number] Normal [facility] KNEE RIGHT 1 OR 2 [facility] KNEE RIGHT 1 OR 2 [facility] Department of Radiology [address] [place] [id number] ======== Patient Name: MICHELLE BE : 1960 Sex: F Age: Race: White Pt. Location: Patient Status: O Ordered Date: 02/08/2019 10:40:00 AM Completed Date: 02/08/2019 10:38 AM Requesting Provider: AHSAN BINGHAM Attending Provider: AHSAN BINGHAM Report Copy To: Signs & Symptoms: S82.001A Unsp fracture of right patella, init for clos fx I10 History: [place] Comments: , , , Ordering Provider [...] Electronically signed by:Debra Del Cid. Transcribed by: [email or web address], User Resident: Electronically Signed by: DEBRA DEL CID @ 02/08/2019 11:16 AM Normal [facility] Comment on above: Order Comment: , Mabel ws (X-RAY, KNEE): Radiologic Protocol , Weight Bearing?: N , With or Without Brace/Cast/Collar: With , Views (X-RAY, KNEE): Radiologic Protocol , Weight Bearing?: N , With or Without Brace/Cast/Collar: With , , , Ordering Provider - AHSAN BINGHAM PA-C , KNEE RIGHT 1 OR 2 VWSon 09-0 KNEE RIGHT 1 OR 2 [facility] Department of Radiology [address] [place] [address] ======== Patient Name: MICHELLE BE : 1960 Sex: F Age: Race: White Pt. Location: 84 Patient Status: Ordered Date: 12/07/2018 10:20:00 AM Completed Date: 12/07/2018 10:20 AM Requesting Provider: AHSAN BINGHAM Attending Provider: Report Copy To: Signs & Symptoms: S82.001A Unsp fracture of right patella, init for clos fx I10 History: [place] Comments: , , , Ordering Provider - AHSAN BINGHAM PA-C , Exam: KNEE RIGHT 1 OR 2 [facility] ======== KNEE RIGHT 1 OR 2 [facility] 12/07/2018 10:20 AM EDT SIGNS AND SYMPTOMS: [...] complications. Electronically signed by:Tomasz Stoll. Transcribed by: [email or web address], User Resident: Electronically Signed by: TOMASZ STOLL @ 12/07/2018 11:14 AM Normal [facility] Comment on above: Order Comment: , Vie ws (X-RAY, KNEE): Radiologic Protocol , Weight Bearing?: N , With or Without Brace/Cast/Collar: With , Views (X-RAY, KNEE): Radiologic Protocol , Weight Bearing?: N , With or Without Brace/Cast/Collar: With , , , Ordering Provider - AHSAN BINGHAM PA-C , KNEE RIGHT 1 OR 2 [facility] KNEE RIGHT 1 OR 2 [facility] Department of Radiology [address] [place] [phone] ======== Patient Name: MICHELLE BE : [...] osteoarthritis Electronically signed by:Anup Ellison. Transcribed by: [email or web address], User Resident: Electronically Signed by: ANUP ELLISON @ 10/06/2018 02:48 PM Normal [facility] Comment on above: Order Comment: , Vie ws (X-RAY, KNEE): Radiologic Protocol , Weight Bearing?: N , With or Without Brace/Cast/Collar: With , Views (X-RAY, KNEE): Radiologic Protocol , Weight Bearing?: N , With or Without Brace/Cast/Collar: With , , , Ordering Provider - AHSAN BINGHAM PA-C , KNEE RIGHT 1 OR 2 [facility] 08-05 KNEE RIGHT 1 OR 2 [facility] Department of Radiology [address] [place] [phone] ======== Patient Name: MICHELLE BE : 1960 Sex: F Age: Race: White Pt. Location: Patient Status: Ordered Date: 08/26/2018 2:30:00 PM Completed Date: 08/26/2018 02:54 PM Requesting Provider: AHSAN BINGHAM Attending Provider: Report Copy To: Signs & Symptoms: S82.001A Unsp fracture of right patella, init for clos fx I10 History: [place] Comments: , , , Ordering Provider [...] effusion Electronically signed by:Anup Ellison. Transcribed by: [email or web address], User Resident: Electronically Signed by: ANUP ELLISON @ 08/26/2018 04:56 PM Normal [facility] Comment on above: Order Comment: , Vie ws (X-RAY, KNEE): Radiologic Protocol , Weight Bearing?: N , With or Without Brace/Cast/Collar: With , Views (X-RAY, KNEE): Radiologic Protocol , Weight Bearing?: N , With or Without Brace/Cast/Collar: With , , , Ordering Provider - AHSAN BINGHAM PA-C , KNEE RIGHT 1 OR 2 Son 07-06 KNEE RIGHT 1 OR 2 [facility] Department of Radiology [address] [place] [phone] ======== Patient Name: MICHELLE BE : [...] VWS ======== KNEE RIGHT 1 OR 2 S [...] compartment Electronically signed by:Anup Ellison. Transcribed by: [email or web address], User Resident: Electronically Signed by: ANUP ELLISON @ 07/29/2018 03:41 PM Normal [facility] Comment on above: Order Comment: , Mabel ws (X-RAY, KNEE): Radiologic Protocol , Weight Bearing?: N , With or Without Brace/Cast/Collar: With , Views (X-RAY, KNEE): Radiologic Protocol , Weight Bearing?: N , With or Without Brace/Cast/Collar: With , , , Ordering Provider - AHSAN BINGHAM PA-C , KNEE RIGHT 3 [facility] 9 KNEE RIGHT 3 [facility] Department of Radiology [address] [place] [phone] ======== Patient Name: MICHELLE BE : [...] knee Electronically signed by:Anup Ellison. Transcribed by: [email or web address], User Resident: Electronically Signed by: ANUP ELLISON @ 07/15/2018 03:31 PM Normal [facility] Comment on above: Order Comment: , Vie ws (X-RAY, KNEE): Radiologic Protocol , Weight Bearing?: N , With or Without Brace/Cast/Collar: With , Views (X-RAY, KNEE): Radiologic Protocol , Weight Bearing?: N , With or Without Brace/Cast/Collar: With , , , Ordering Provider - AHSAN BINGHAM PA-C , Operative Reporton 9 Operative Report MR#: [id number] [facility] Pt. Name: Michelle Be Room [...] Duarte MD Date Trans: 07/03/2018 04:28 Monse/terry [id number] Normal [facility] *ANAEROBIC CULTUREon 019 *ANAEROBIC CULTURE Clinical Report: (D) Specimen/Source: SWAB/RT KNEE Collected: 07/02/2018 13:53 Status: Final Last Updated: 07/07/2018 08:02 CULT RES (Final) No Anaerobes Isolated 5 Days Normal [facility] Comment on above: Performed By: #### 3 0312 #### [address] *WOUND CULTUREon 07-02-2018 *WOUND CULTURE Clinical Report: (D) Specimen/Source: WOUND/INTRAOP SPEC Collected: 07/02/2018 13:53 Status: Final Last Updated: 07/07/2018 10:13 (1) #1 RT KNEE GRAM (Final) Rare Polys No Bacteria Seen CULT RES (Final) No Growth Day 5 Normal [facility] Comment on above: Order Comment: #1 RT KNEE Performed By: #### 3 0343 #### [id number] [place] [address] KNEE RIGHT 1 OR 2 VWSon 06-05 KNEE RIGHT 1 OR 2 [facility] Department of Radiology [address] [place] [phone] ======== Patient Name: MICHELLE BE : [...] PATELLA Exam: KNEE RIGHT 1 OR 2 [facility] ======== KNEE RIGHT 1 OR 2 [...] Electronically signed by:Debra Del Cid. Transcribed by: [email or web address], User Resident: Electronically Signed by: DEBRA DEL CID @ 07/02/2018 02:03 PM Normal [facility] Comment on above: Order Comment: ORIF VS PERCUTANEOUS FIXATION RIGHT PATELLA POC GLUCOSE LABon 07-02-2018 Glucose [Mass/Vol] 108 mg/dL High 70-100 [facility] Comment on above: Performed By: #### 8 5499 #### [facility] [address] [place] [address], [facility] APTTon 06-30-2018 aPTT Coag (Bld) [Time] 30.6 s Normal 25.0-35.0 Th e [facility] Comment on above: Result Comment: [...] THIS PURPOSE. Performed By: #### 5 6101, [id number] #### [facility] [address] [place] [address], [facility] BASIC METABOLIC PANELon 06-05 Calcium [Mass/Vol] 9.7 mg/dL Normal 8.6-10.3 [facility] Comment on above: Performed By: #### 0 0071 #### [facility] [address] [place] [address], [facility] Chloride [Moles/Vol] 102 mmol/L Normal 98-107 [facility] Comment on above: Performed By: #### 0 0071 #### [facility] [address] [place] [address], [place] CO2 [Moles/Vol] 28 mmol/L Normal 21-31 [facility] Comment on above: Performed By: #### 0 0071 #### [facility] [address] [place] [address], [place] Creatinine [Mass/Vol] 1.20 mg/dL Normal 0.60-1.20 [facility] Comment on above: Performed By: #### 0 0071 #### [facility] [address] [place] [address], [place] GFR/1.73 sq M predicted among blacks MDRD (S/P/Bld) [Vol rate/Area] 56 ml/min/1.73sq m Abnormal >60 [facility] Comment on above: Performed By: #### 0 0071 #### [facility] [address] [place] [address], [place] GFR/1.73 sq M predicted among non-blacks MDRD (S/P/Bld) [Vol rate/Area] 47 ml/min/1.73sq m Abnormal >60 [facility] Comment on above: Performed By: #### 0 0071 #### [facility] [address] [place] [address], [place] Glucose [Mass/Vol] 97 mg/dL Normal 70-100 [facility] Comment on above: Performed By: #### 0 0071 #### [facility] [address] [place] [address], [place] Potassium [Moles/Vol] 4.1 mmol/L Normal 3.5-5.1 [facility] Comment on above: Performed By: #### 0 0071 #### [facility] [address] [place] [address], [place] Sodium [Moles/Vol] 137 mmol/L Normal 136-145 [facility] Comment on above: Performed By: #### 0 0071 #### [facility] [address] Urea nitrogen [Mass/Vol] 19 mg/dL Normal 7-25 [facility] Comment on above: Performed By: #### 0 0071 #### [facility] [address] CBC W/DIFFon 06-30-2018 ABS BASOPHILS 0.1 10*3/uL Normal 0.0-0.2 [facility] Comment on above: Performed By: #### 5 0103 #### [facility] [address] ABS IMM GRANS 0.0 10*3/uL Normal 0.0-0.2 [facility] Comment on above: Performed By: #### 5 0103 #### [facility] [address] ABS NEUTROPHILS 6.4 10*3/uL Normal 1.6-7.6 [facility] Comment on above: Performed By: #### 5 3 #### [facility] [address] Basophils/100 WBC (Bld) 0.7 % Normal 0.0-1.0 [facility] Comment on above: Performed By: #### 5 3 #### [facility] [address] [place] [address], [facility] Eosinophils (Bld) [#/Vol] 0.2 10*3/uL Normal 0.0-0.5 [facility] Comment on above: Performed By: #### 5 102 #### [facility] [address] [place] [address], [facility] Eosinophils/100 WBC (Bld) 1.5 % Normal 0.0-6.0 [facility] Comment on above: Performed By: #### 5 0103 #### [facility] [address] Erythrocyte distribution width (RBC) [Ratio] 14.4 % Normal 11.5-15.0 [facility] Comment on above: Performed By: #### 5 0103 #### [facility] [address] [facility] [place] [address], [facility] Hematocrit (Bld) [Volume fraction] 40.6 % Normal 36.0-45.0 [facility] Comment on above: Performed By: #### 5 3 #### [facility] [address] [facility]. [address] Hemoglobin (Bld) [Mass/Vol] 13.3 g/dL Normal 12.0-15.0 [facility] Comment on above: Performed By: #### 5 0103 #### [facility] [address] [facility]. [address] IMMATURE GRANS 0.4 % Normal 0.0-1.0 [facility] Comment on above: Performed By: #### 5 0103 #### [facility] [address] [facility] [address] Lymphocytes (Bld) [#/Vol] 2.6 10*3/uL Normal 1.2-4.0 [facility] Comment on above: Performed By: #### 5 3 #### [facility] [address] [facility] [address] Lymphocytes/100 WBC (Bld) 26.5 % Normal 20.0-45.0 [facility] Comment on above: Performed By: #### 5 3 #### [facility] [address] [place] [address], [facility] MCH (RBC) [Entitic mass] 27.4 pg Normal 27.0-33.0 [facility] Comment on above: Performed By: #### 3 #### [facility] [address] [place] [address], [facility] MCHC (RBC) [Mass/Vol] 32.8 g/dL Normal 32.0-35.0 [facility] Comment on above: Performed By: #### 3 #### [facility] [address] [facility] [place] [address], [facility] MCV (RBC) [Entitic vol] 83.5 fL Normal 82.0-98.0 [facility] Comment on above: Performed By: #### 102 #### [facility] [address] [place] [address], [facility] Monocytes (Bld) [#/Vol] 0.5 10*3/uL Normal 0.1-1.0 [facility] Comment on above: Performed By: #### 102 #### [facility] [address] [facility] [place] [address], [facility] MONOS 5.0 % Normal 5.0-12.0 [facility] Comment on above: Performed By: #### 5 102 #### [facility] [address] [place] [address], [facility] Neutrophils/100 WBC (Bld) 65.9 % Normal 40.0-72.0 [facility] Comment on above: Performed By: #### 3 #### [facility] [address] [place] [address], [facility] Nucleated RBC/100 WBC (Bld) [Ratio] 0 % Normal 0-0 [facility] Comment on above: Performed By: #### 102 #### [facility] [address] [facility] [place] [address], [facility] PLAT CNT 290 10*3/uL Normal 150-400 [facility] Comment on above: Performed By: #### 102 #### [facility] [address] [place] [address], [facility] RBC (Bld) [#/Vol] 4.86 10*6/uL Normal 3.80-5.00 [facility] Comment on above: Performed By: #### 5 0103 #### [facility] [address] [facility] [place] [address], [facility] WBC (Bld) [#/Vol] 9.68 10*3/uL Normal 4.00-10.60 [facility] Comment on above: Performed By: #### 5 0103 #### [facility] [address] [facility] [place] [address], [facility] KNEE RIGHT 1 OR 2 VWSon 06-05 KNEE RIGHT 1 OR 2 VWS [facility] Department of Radiology [address] [place] [phone] ======== Patient Name: MICHELLE BE : 1960 Sex: F Age: Race: White Pt. Location: Patient Status: Ordered Date: 06/30/2018 10:30:00 AM Completed Date: 06/30/2018 10:52 AM Requesting Provider: HASAN BINGHAM Attending Provider: Report Copy To: Signs [...] Electronically signed by:Debra Del Cid. Transcribed by: [email or web address], User Resident: Electronically Signed by: DEBRA DEL CID @ 06/30/2018 11:52 AM Normal [facility] Comment on above: Order Comment: , Mabel ws (X-RAY, KNEE): Radiologic Protocol , Weight Bearing?: N , With or Without Brace/Cast/Collar: With , Views (X-RAY, KNEE): Radiologic Protocol , Weight Bearing?: N , With or Without Brace/Cast/Collar: With , , , Ordering Provider - AHSAN BINGHAM PA-C , PROTHROMBIN TIMEon 9 INR Coag (PPP) [Relative time] 0.98 {INR} Normal 0.91-1.16 [facility] Comment on above: Result Comment: [...] CHEST 1995;108:231S-246S. Performed By: #### 5 6101, [address] #### [address] PT Coag (PPP) [Time] 13.0 s Normal 12.3-14.8 [facility] Comment on above: Result Comment: ALL RESULTS MUST BE INTERPRETED WITH RESPECT TO BLOOD DRAWING ARTIFACT OR DILUTION ERROR OF ANTICOAGULANT AT THE TIME OF SAMPLING. Performed By: #### 5 6101, [address] #### [address] KNEE RIGHT 3 Son 9 KNEE RIGHT 3 S [facility] Department of Radiology [address] [place] [address] ======== Patient Name: MICHELLE BE: 1960 Sex: F Age: Race: White Pt. Location: 84 Patient Status: O Ordered Date: 06/15/2018 1:35:00 PM Completed Date: 06/15/2018 01:34 PM Requesting Provider: AMPARO ZHANG Attending Provider: AMPARO ZHANG Report Copy To: ADELAIDA CARRION Signs & Symptoms: M17.11 Unilateral primary osteoarthritis, right knee I10 History: [place] Comments: , Weight Bearing?: Y , [...] effusion Electronically signed by:Anup Ellison. Transcribed by: [email or web address], User Resident: Electronically Signed by: ANUP ELLISON @ 06/15/2018 03:50 PM Normal [facility] Comment on above: Order Comment: , Isaiah ght Bearing?: Y , Weight Bearing?: Y , , , Ordering Provider - AMPARO ZHANG PA-C , Vital Signs Date Time Vital Sign Value Performing Clinician Facility 05-18-2023 16:30-0500 Body height 162.6 cm Adelaida Aicbostonz [employer] Work Phone: [facility] 05-18-2023 16:30-0500 Body mass index (BMI) [Ratio] 47.89 kg/m2 Adelaida Aichholz [employer] Work Phone: [facility] 05-18-2023 16:30-0500 Body temperature 97.3 [degF] Adelaida Aichholz [employer] Work Phone: [facility] 05-18-2023 16:30-0500 Body weight 126.55 kg Adelaida Aichholz [employer] Work Phone: [facility] 05-18-2023 16:30-0500 Diastolic blood pressure 80 mm[Hg] Adelaida Aichholz [employer] Work Phone: [facility] 05-18-2023 16:30-0500 Heart rate 76 /min Adelaiad Aichholz [employer] Work Phone: [facility] 05-18-2023 16:30-0500 Respiratory rate 19 /min Adelaida Aichholz [employer] Work Phone: [facility] 05-18-2023 16:30-0500 SaO2% (BldA) [Mass fraction] 97 % Adelaida Aichholz [employer] Work Phone: [facility] 05-18-2023 16:30-0500 Systolic blood pressure 134 mm[Hg] Adelaida Aichholz [employer] Work Phone: [facility] 03-23-2023 12:10-0500 Diastolic blood pressure 98 mm[Hg] Adelaida Aichholz Work Phone: [facility] 03-23-2023 12:10-0500 Heart rate 76 /min Adelaida Aichholz Work Phone: [facility] 03-23-2023 12:10-0500 Respiratory rate 18 /min Adelaida Aichholz Work Phone: [facility] 03-23-2023 12:10-0500 SaO2% (BldA) [Mass fraction] 99 % Adelaida Aichholz Work Phone: [facility] 03-23-2023 12:10-0500 Systolic blood pressure 162 mm[Hg] Adelaida Aichholz Work Phone: [facility] 03-23-2023 10:53-0500 Body height 162.56 cm Adelaida Aichholz Work Phone: [facility] 03-23-2023 10:53-0500 Body weight 125.64 kg Adelaida Aicsherineholz Work Phone: [facility] 12-19-2022 14:55-0400 Body height 162.56 cm Rosemary Marita Other [employer] Other 12-19-2022 14:55-0400 Body mass index (BMI) [Ratio] 47.85 kg/m2 Rosemary Marita Other [employer] Other 12-19-2022 14:55-0400 Body temperature 97.8 [degF] Rosemary Marita Other [employer] Other 12-19-2022 14:55-0400 Body weight 126.46 kg Rosemary Marita Other [employer] Other 12-19-2022 14:55-0400 Respiratory rate 20 /min Rosemary Marita Other [employer] Other 12-19-2022 14:55-0400 SaO2% (BldA) [Mass fraction] 95 % Rosemary Kirkland Other [facility] [employer] Other 11-20-2022 13:12-0400 Body temperature 97.7 [degF] Adelaida Aichholz Work Phone: [facility] 11-20-2022 13:12-0400 SaO2% (BldA) [Mass fraction] 96 % Adelaida Aichholz Work Phone: [facility] 11-20-2022 07:44-0400 Diastolic blood pressure 90 mm[Hg] Adelaida Aichholz Work Phone: [facility] 11-20-2022 07:44-0400 Heart rate 103 /min Adelaida Aichholz Work Phone: [facility] 11-20-2022 07:44-0400 Systolic blood pressure 152 mm[Hg] Adelaida Aichholz Work Phone: [facility] 11-19-2022 20:00-0400 Respiratory rate 18 /min Adelaida Aichholz Work Phone: [facility] 11-18-2022 15:18-0400 Body height 162.56 cm Adelaida Aichholz Work Phone: [facility] 11-17-2022 09:00-0400 Body weight 122.92 kg Adelaida Aichholz Work Phone: [facility] Encounters Encounter Date Encounter Type Care Provider Facility Start: 10-05-2023 End: 10-05-2023 ambulatory ADELAIDA AICHHOLZ Not Available Start: 09-21-2023 End: 09-21-2023 ambulatory ADELAIDA AICHHOLZ Not Available Start: 08-20-2023 ambulatory Eduardo Acevedo acility:[facility] Start: 08-17-2023 End: 08-17-2023 ambulatory ADELAIDA AICHHOLZ Not Available Start: 07-23-2023 End: 07-23-2023 ambulatory ADELAIDA AICHHOLZ Not Available Start: 07-07-2023 End: 07-07-2023 ambulatory ADELAIDA AICHHOLZ Not Available Start: 06-29-2023 End: 06-30-2023 ambulatory Syeda Mancuso MD Facility: [place] Start: 05-22-2023 End: 05-22-2023 ambulatory ASHLEIGH HINES Not Available Start: 05-21-2023 Refill Adelaida Carrion SEAT COVER MAKER Work Phone: [facility] Comment on above: Acute cystitis with hematuria (Primary Dx) Start: 05-18-2023 End: 05-18-2023 Office outpatient visit 25 minutes Adelaida Carrion SE[employer] COVER MAKER Work Phone: [facility] Comment on [...] encounter Start: 05-18-2023 End: 05-18-2023 ambulatory ADELAIDA FRANCIEZ Not Available Start: 05-18-2023 Bamboo flowsheet Adelaida Sheyla SE[employer] C[employer] MAKER Work Phone: [facility] Start: 05-18-2023 Bamboo flowsheet Adelaida Merryholz SEAT COVER MAKER Work Phone: [facility] Start: 05-18-2023 End: 05-18-2023 Patient encounter procedure Adelaida Carrion SEAT [employer]OVER MAKER Work Phone: [facility] Start: 03-25-2023 End: 03-25-2023 ambulatory ADELAIDA MERRYHOLZ Not Available Start: 03-23-2023 End: 03-23-2023 Admission to same day surgery center Adelaida Carrion Work Phone: [facility] Work Phone: Start: 03-23-2023 End: 03-23-2023 ambulatory Adelaida Carrion Work Phone: [facility] Work Phone: Start: 03-11-2023 End: 03-11-2023 ambulatory KALLI INTERIANO Not Available Start: 02-20-2023 End: 02-20-2023 ambulatory ASHLEIGH Mcnair HINES Not Available Start: 02-12-2023 End: 02-12-2023 ambulatory Jace Graham Other [employer] Other Start: 02-12-2023 Telephone encounter Jace Haney Chief Environmental Commitment Officer Start: 12-19-2022 End: 12-19-2022 ambulatory Rosemary Kirkland Other [employer] Other Start: 12-19-2022 Office outpatient ne w 10 minutes Rosemary Kirkland [facility] [place] Start: 11-17-2022 End: 11-20-2022 Evaluation and management of inpatient Adelaida Carrion Work Phone: [facility] Work Phone: Start: 09-04-2022 ambulatory ARIAN JOHNSON . Facili ty:[facility]1 Start: 08-26-2022 ambulatory NARENDRANATH LAKSHMIPATHY . Facility:[facility] Start: 08-08-2022 End: 08-09-2022 ambulatory HISTOLOGY MANAGER ADELAIDA SHEYLA Facility:[facility] Start: 07-25-2022 End: 07-26-2022 ambulatory HISTOLOGY MANAGER ADELAIDAMonse CARRION Facility:[facility] Start: 07-15-2022 End: 07-15-2022 ambulatory [...] Start: 01-01-2022 End: 01-02-2022 [facility] Start: 12-16-2021 End: 12-16-2021 ambulatory [...] End: 07-03-2018 Patient encounter procedure SUKI ESCALANTE Facility:[facility] Procedures Date Procedure Procedure Detail Performing Clinician Start: 03-23-2023 Screening colonoscopy L onealmonse Carrion Work Phone: Start: 03-23-2023 Colonoscopy Adelaida Jayden analily [employer] Work Phone: Start: 09-15-2022 Mammography Adelaida ramos NP Work Phone: Start: 08-28-2022 Microscopic observat ion [Identifier] in Cervix by Cyto stain Adelaida Carrion SE[employer] Work Phone: Start: 07-02-2018 ANESTH KNEE AREA SURGERY CHAPARRITA HENDRICKS Start: 07-02-2018 REMOVAL OF SUPPORT IMPLANT SUKI EBRAMORENO Start: 07-02-2018 TREAT KNEECAP FRACTURE SUKI EBRAHEIM Plan of Treatment Date Care Activity Detail Author Start: 03-23-2033 Screening for malignant neoplasm of colon [facility] Start: 08-28-2025 Screening for malignant neoplasm of cervix [facility] Start: 05-18-2024 Medicare Annual Wellness (AWV) Medicare Annual Wellness (AWV) [facility] Start: 09-16-2023 Screening for malignant neoplasm of breast Mammogram [facility] Start: 08-17-2023 End: 08-17-2023 Patient encounter procedure 08/17/2023 9:20 AM EDT Office Visit [facility] [address] [place] [address] Adelaida Carrion NP [address] [place] [address] [facility] Start: 05-22-2023 End: 05-22-2023 Patient encounter procedure 05/22/2023 8:45 AM EST Office Visit [facility] [address] [facility] [address] [place] [address] Ashleigh Hines PA [address] [facility] [address] [place] [address] [facility] Start: 05-18-2023 End: 05-18-2023 Patient encounter procedure 05/18/2023 4:30 PM EST Office Visit [facility] [address] [place] [address] Adelaida Carrion NP [address] [place] [address] Arrived [facility] Comment on above: Arrived Start: 05-18-2023 End: 05-18-2024 XR Hip - left 3 Views XR hip left 2 or 3 views Imaging Routine Left hip pain Expected: 05/18/2023 (Approximate), Expires: 05/18/2024 [facility] Work Phone: Comment on above: Expected: 05/18/2023 (Approximate), Expires: 05/18/2024 Start: 03-23-2023 [facility] Start: 11-20-2022 [facility] Start: 11-18-2022 Referral to clinical stem shaper [facility] Start: 11-17-2022 Hospital admission [facility] Start: 11-17-2022 [facility] Start: 12-06-1991 Screening for malignant neoplasm of cervix HPV/Cotest [facility] Start: 1960 Medicare Annual Wellness (AWV) Medicare Annual Wellness (AWV) [facility] Start: 1960 Screening for malignant neoplasm of colon [facility] Patient Education [facility] Work Phone: Patient referral [facility] Work Phone: [facility] Immunizations Immunization Date Immunization Notes Care Provider [facility] 02-13-2023 influenza, injectabl e, quadrivalent, preservative free Adelaida Carrion SEAT [employer] Work Phone: [facility] 02-13-2023 SARS-COV-2 (COVID-19 ) vaccine, mRNA, spike protein, LNP, PF, 50 mcg/0.5 mL Adelaida Carrion SE[employer] MAK[employer] Work Phone: [facility] 02-19-2022 diphtheria, tetanus toxoids and pertussis vaccine Adelaida Carrion SE[employer] MAK[employer] Work Phone: [facility] 03-02-2021 Moderna SARS-CoV-2 Vaccination Adelaida Carrion [employer] Work Phone: [facility] 08-24-2020 Moderna SARS-CoV-2 Vaccination Adelaida Carrion [employer] Work Phone: [facility] 07-27-2020 Moderna SARS-CoV-2 Vaccination Adelaida Carrion [employer] Work Phone: [facility] 05-28-2018 influenza, injectabl e, quadrivalent, preservative free Adelaida Carrion Work Phone: [facility] Payers Date Payer Category Payer Medicare [id number] 2022 Private Health Insurance [id number] 2022 Self-pay [id number] 2022 Medicare [id number] 2008 Unknown [id number] 1961 Unknown [id number] 2.16.8 40.1.061461.3.579.2.647 1961 Unknown [id number] 2.16.84 0.1.052258.3.579.2.593 1961 Unknown [id number] 2.16.84 0.1.017657.3.579.2.593 1961 Unknown [id number] 2.16.84 0.1.776364.3.579.2.593 1961 Unknown [id number] 2.16.84 0.1.925193.3.579.2.593 1961 Unknown [id number] 2.16.84 0.1.256130.3.579.2.593 1961 Unknown [id number] 2.16.84 0.1.681131.3.579.2.593 1961 Unknown [id number] 2.16.84 0.1.015642.3.579.2.593 1961 Unknown [id number] 2.16.84 0.1.985308.3.579.2.593 1961 Unknown [id number] 2.16.84 0.1.296129.3.579.2.593 1961 Unknown [id number] 2.16.84 0.1.932550.3.579.2.593 1961 Unknown [id number] 2.16.84 0.1.741523.3.579.2.593 1961 Unknown [id number] 2.16.84 0.1.297676.3.579.2.593 1961 Unknown [id number] 2.16.84 0.1.436188.3.579.2.593 1961 Unknown [id number] 2.16.84 0.1.219000.3.579.2.593 1961 Unknown [id number] 2.16.84 0.1.678753.3.579.2.593 1961 Unknown [id number] 2.16.84 0.1.759588.3.579.2.593 1961 Unknown [id number] 2.16.84 0.1.051823.3.579.2.593 1961 Unknown [id number] 2.16.84 0.1.826151.3.579.2.593 1961 Unknown [id number] 2.16.84 0.1.281840.3.579.2.593 1961 Unknown [id number] 2.16.84 0.1.506848.3.579.2.593 1961 Unknown [id number] 2.16.84 0.1.614341.3.579.2.593 1961 Unknown [id number] 2.16.84 0.1.556292.3.579.2.593 1961 Unknown [id number] 2.16.84 0.1.615108.3.579.2.593 1961 Unknown [id number] 2.16.84 0.1.283433.3.579.2.593 1961 Unknown [id number] 2.16. 840.1.437902.3.579.2.196 1961 Unknown [id number] 2.16.84 0.1.654818.3.579.2.1259 1961 Unknown [id number] 2.16.84 0.1.178808.3.579.2.1259 1961 Unknown [id number] 2.16.84 0.1.728941.3.579.2.1259 1961 Unknown [id number] 2.16.84 0.1.296838.3.579.2.1259 1961 Unknown [id number] 2.16.84 0.1.027142.3.579.2.1259 1961 Unknown [id number] 2.16.84 0.1.996758.3.579.2.1259 1961 Unknown [id number] 2.16.84 0.1.543155.3.579.2.1259 1961 Unknown [id number] 2.16.840 .1.739034.3.579.2.1259 1961 Unknown [id number] 2.16.840 .1.230175.3.579.2.1259 1961 Unknown [id number] 2.16.840 .1.947704.3.579.2.1259 1959 Medicare [id number] 1959 Unknown [id number] Unknown [id number] 2.16.8 40.1.299969.3.579.2.531 Unknown [id number] 2.16.8 40.1.703934.3.579.2.531 Unknown [id number] 2.16.8 40.1.510624.3.579.2.531 Social History Date Type Detail Facility Start: 11-18-2022 End: 02-09-2023 Tobacco smoking status NHIS Ex-smoker (finding) [facility] Start: 1960 Sex Assigned At Female [facility] Start: 03-25-2023 End: 05-18-2023 Sex Assigned At [facility] End: 04-06-2016 History of tobacco use Current smoker [facility] End: 04-06-2016 History of tobacco use Cigarette Smoker [facility] Start: 02-09-2023 End: 05-18-2023 Cigarettes smoked current (pack per day) - Reported 1 [facility] Start: 02-09-2023 Tobacco use and exposure Smokeless tobacco non-user [facility] Start: 05-18-2023 Alcohol intake Lifetime non-drinker (finding) [facility] Start: 11-13-2022 Alcohol Comment caffeine intake: 1-2 cups per day. [facility] Start: 10-01-2022 Gender identity Identifies as female gender (finding) [facility] Start: 10-01-2022 Sexual orientation Heterosexual (finding) [facility] Within the last year , have [...] Facility 11-20-2022 Functional status Patient at Baseline [facility] Work Phone: Mental Status Date Assessment Result Facility 11-20-2022 Cognitive function Cognitive Sta tus Patient is Progressing Toward Baseline [facility] Work Phone: Clinical Notes 10-03-2021 [...] goal no changes in meds Associated Problem(s): OSMNAY (obstructive sleep apnea) Compliant with PAP Associated [...] (BARIATRIC MULTIVITAMINS/IRON PO) Bariatric Multivitamins/Iron nystatin (Mycostatin) 076624 UNIT/GM powder 1 application , Topical, 2 [...] 05/18/2023 Bipolar disorder with severe depression ([facility]/HCC) 05/18/2023 Brain vascular malformation Chronic pain disorder Colon polyps Constipation Degenerative cervical disc Degenerative lumbar disc Depression (CMS/HCC) 05/18/2023 Diastolic dysfunction Dizziness 05/18/2023 Dysphagia Fibromyalgia Gastrocnemius equinus GERD (gastroesophageal reflux disease) Heart murmur Hematoma of right breast Hemiparesis, right ([facility]) Hemorrhoid int/external hemorrhoids Hiatal hernia Iron deficiency Left foot pain 03/25/2023 Lower extremity edema Mood disorder ([facility]) mixed mood disorder OSMANY (obstructive sleep apnea) Osteoporosis ([facility]) Overactive bladder Pre-diabetes Primary hypertension ([facility]) 03/25/2023 PTSD (post-traumatic stress disorder) ([facility]) Restless leg Right knee pain Right sided weakness S/P bariatric surgery Shingles Slurred speech Stroke ([facility]) 2018 Tenosynovitis, de Quervain Thoracic back pain, [...] [facility] 03-23-[address] [facility] 12-19-2022 Evaluation note Encounter Date Diagnosis Assessment Notes Dec, Skin candidiasis (ICD-10 - B37.2) Drink plenty fluids, get plenty of rest. Continue home medications as prescribed. Take the Diflucan as prescribed until gone. 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 She reports moving to [place] from [place] in 2011 and was then diagnosed with bipolar disorder at [facility] in [place], where she still follows with a therapist.? Shereports that she has been with 7 therapists in the last 9 years and is currentlycompleting EMDR with her current therapist. Past hospitalizations: Her most recent hospitalization was 5 years ago [facility] in [place] for the same feeling she is experiencing [...] worked since 2010 due to her fibromyalgia.? 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 (insert date/time [...] signed by Eduardo Monk MD> 11/20/22 0638 [facility] Work Phone: 1(222) 810-278508-16-2023 Progress note Author Eduardo bautista [facility] November 19, 2022 6:25am Note Date/Time November 19, 2022 6: 25am [facility] [address] [place] [address] Psychiatry Progress Note Signed Patient: Michelle Be MR#: [id number] : 1960 Acct:[id number] Age/Sex: 61 / F Adm Date: 3 Loc: 1S Room: 9K3443-9 Type : ADM IN Attending Dr: Gaudencio [...] time Documented By: Eduardo Monk MD 3 [id number] Signed By: <Electronically signed by Eduardo Monk MD> 11/19/22 0625 [facility] Work Phone: 1(834) 103-639908-15-2023 Progress note Author Eduardo bautista [facility] November 18, 2022 11:01am Note Date/Time November 18, 2022 10 :11am [facility] [address] [place] [address] Psychiatry Progress Note Signed Patient: Michelle Be MR#: [id number] : 1960 Acct:[id number] Age/Sex: 61 / F Adm Date: 3 Loc: Room: [address] [place] [address] Type : ADM IN Attending Dr: Gaudencio [...] by requesting a schedule 2 referring to [place] for pain management specifically every 4-6 hours [...] signed by MD DA Rangel> 11/18/22 1011 [facility] Work Phone: 1(190) 630-650408-14-2023 History and physical note Author Eduardo bautista [facility] November 17, 2022 12:48pm Note Date/Time November 17, 2022 12 :48pm [facility] [address] [place] [address] Psychiatry H&P Signed Patient: Michelle Be MR#: [id number] : 1960 Acct:[id number] Age/Sex: 61 / F Adm Date: 3 Loc: Room: [address] [place] [address] Type: ADM IN Attending Dr: Gaudencio Monk MD Copies to: MD Adelaida Álvarez, BRIANA-C~ Date of Service: 11/17/2022 HPI History of [...] at that time. She reports moving to [place] from [place] in 2011 and was then diagnosed with bipolar disorder at [facility] in [place], where she still follows with a therapist. Toñitoorts that she has been with 7 therapists in the last 9 years and is currentlycompleting EMDR with her current therapist. Past hospitalizations: Her most recent hospitalization was 5 years ago [facility] in [place] for the same feeling she is experiencing [...] signed by Eduardo Monk MD> 11/17/22 1243 [facility] Work Phone: 1(769) 919-833303-23-2023 NoteCONSULTATION CONSULTATION DATE: 06/26/2022 To: Nurse Carrion [...] L5-S1 facet joint injection under fluoroscopic guidance.[facility] [id number] NotePROCEDURE: XR SHOULDER RT 2V or > [...] authenticated by: KINGSLEY CLEMENTS Date: 2022-05-09 09:21[facility] [id number] NotePROCEDURE: XR WRIST LT MIN 3 V [...] authenticated by: KINGSLEY CLEMENTS Date: 2022-04-28 13:31[facility] [id number] NoteCONSULTATION CONSULTATION DATE: 04/03/2022 HISTORY OF PRESENT [...] her in three months, unless otherwise indicated.[facility] [id number] NoteCONSULTATION CONSULTATION DATE: 01/02/2022 This is a [...] prescription was sent by Dr. Macedo to [facility] in [place] for the compounded cream. She needs a [...] in three months' time unless otherwise indicated.[facility] HospitalGjcpxikc34-57-1179 NotePROCEDURE: XR ANKLE RT MIN 3 VIEWS, [...] Electronically authenticated by: KINGSLEY CLEMENTS Date: 2022-01-01 13:11[facility]09-28-2022 NotePROCEDURE: XR ANKLE RT MIN 3 VIEWS, [...] Electronically authenticated by: KINGSLEY CLEMENTS Date: 2022-01-01 13:11[facility]08-18-2022 NotePROCEDURE: XR FOOT RT MIN 3 VIEWS HISTORY: Pain in right foot , chronic COMPARISON: XR foot right 2020 FINDINGS: BONES:No fracture, dislocation, bone lesion. Small calcaneal degenerative enthesophytes. SOFT TISSUES:No visible soft tissue swelling. EFFUSION:None visible. OTHER: Negative. IMPRESSION: 1. No acute bone abnormality or significant degenerative joint disease. Electronically authenticated by: KINGSLEY CLEMENTS Date: 2021-11-21 16:13[facility]06-30-2022 NoteCONSULTATION CONSULTATION DATE: 10/03/2021 This is a [...] patient agrees with the plan of care. [facility] Signed and Approved by: ZELDA MCDANIEL . 10/10/2021 10:22:00[facility] Diagnosis Onset Date Resolution Status Allergies acute Bipolar 2 disorder acute Hypertension acute Morbid obesity with BMI of 45.0-49.9, adult acute OSMANY (obstructive sleep apnea) acute Restless legs syndrome [facility] Work Phone: Evaluation noteNo [employer] Other Evaluation noteNo assessment information available [facility] Work Phone: Evaluation note* Diagnosis Encounter for annual wellness visit (AWV) in Medicare patient- Primary OSMANY (obstructive sleep apnea) Obstructive sleep apnea (adult) (pediatric) Chronic pain disorder Chronic pain syndrome Gastroesophageal reflux disease, unspecified whether esophagitis present Overactive bladder Hypertonicity of bladder Lower extremity edema Edema Pre-diabetes Other abnormal glucose Morbid obesity ([facility]/HCC) Morbid obesity Yeast infection of the skin Candidiasis of skin and nails Tobacco dependence Tobacco use disorder Mood disorder ([facility]/HCC) Unspecified episodic mood disorder Primary hypertension ([facility]) Unspecified essential hypertension Left hip pain Pain in joint, pelvic region and thigh Open wound of anterior abdominal wall, initial encounter documented in this encounter [facility] Diagnosis Acute cystitis with hematuria- Primary documented in this encounter [facility] HealthcareHistory and physical note Author Jace Graham [facility] March 23, 2023 11:21am Note Date/Time March 23, 2023 11:21am [facility] [address] [place] [address] Gastroenterology H&P Signed Patient: Michelle Be MR#: [id number] : 1960 Acct:[id number] Age/Sex: 62 / F Adm Date: 3 Loc: Room: Type: [facility] Attending Dr: Jace Graham MD Copies [...] <Electronically signed by Jace Graham MD> 03/23/23 112 [facility] Work Phone: History general Narrative - [...] see above surg Hospitalization History stroke 2018 [employer] Other Hospital Discharge instructions Additional Instructions Regular Diet [facility]: Hospital Discharge instructions Additional [...] years. -Follow up with PCP. -Office number [phone].[facility] Work Phone: Summary Purpose Family History [...] and content) DATE CREATED AUTHOR 02/18/2019 [facility] DATE CREATED AUTHOR AUTHOR'S ORGANIZ ATION 11/15/2021 [facility] DATE CREATED AUTHOR AUTHOR'S ORGANIZ ATION 08/16/2022 [facility] DATE CREATED AUTHOR AUTHOR'S ORGANIZ ATION 08/11/2023 [facility] DATE CREATED AUTHOR AUTHOR'S ORGANIZ ATION 09/27/2023 [facility] DATE CREATED AUTHOR AUTHOR'S ORGANIZ ATION 10/06/2023 [facility] d[facility] Special[facility] EPIC Care Teams (unrecognized sec tion and content) Team Status: Active Member Role Status Dates Adelaida Carrion Primary Care Provider Active Team Status: Inactive Member Role Status Dates Adelaida Mcnair Yingsherinebob Primary Care Provider Active Gaudencio Monk MD Admit Provider, Attending Pr ovider Active Andreina Vieira , JOHANN Other Provider Active Camilla Pina , RN Other Provider Active Ruchi Hurtado , RN Other Provider Active Lisa Crooks , RN Other Provider Active Tash Mejias , JOHANN Other Provider Active Elzbieta Kim , JOHANN Other Provider Active Walker Pringle MD Other Provider Active Adelaida Marsh BARBERING TEACHER Other Provider Active Jessica Murillo , DO [...] MD Other Provider Active Joellen Le , SEAT COVER MAKER-C Other Provider Active Severo Yancey MD Other Provider Active Rao Webber MD Other Provider Active Yuan Shi MD Other Provider Active Delroy Ramirez MD Other Provider Active Berta Comer , DO Other Provider Active Negrito Ruiz , DO Other Provider Active Lacho Singh , DO Other Provider Active Rachana Hobson APRN Other Provider Active Rob Lake , DO Other Provider Active Jeff Alvarez MD Other Provider Active Urmila Rinaldi BARBERING TEACHER Other Provider Active Bina Mayberry BARBERING TEACHER Other Provider Active Mir Bradford MD Other Provider Active Te Da Silva MD Other Provider Active Debra Landaverde RN Other Provider Active Team Status: Inactive Member Role Status Dates Adelaida Carrion Primary Care Provider Active Jace Graham MD Attending Provider Active [employer] Relationship Specialty Start Date End Date José Luis Roberts MD [address] [place] [phone] PCP - General Family Medicine 05/18/23 Adelaida Carrion NP [address] [place] [phone] Referring Physician Nurse Practitioner 10/14/22 [employer] Relationship Specialty Start Date End Date José Luis Roberts MD [address] [place] [phone] PCP - General Family Medicine 05/18/23 Adelaida Carrion NP [address] [place] [phone] Referring Physician Nurse Practitioner 10/14/22 [employer] Clerk Relationship Specialty Start Date End Date José Luis Roberts MD [address] [place] [phone] PCP - General Family Medicine 05/18/23 Adelaida Carrion NP [address] [place] [phone] Referring Physician Nurse Practitioner 10/14/22 REASON FOR [...] BE BASED ON THE PRIMARY CLINICAL RECORDS. [employer] [facility]. provides no warranty or guarantee of the accuracy or completeness of information in this document.
[2023-10-20 07:33] VITALS: BP 168/98; PULSE 81; TEMP 36.3; O2SAT 98
[2023-10-20] MEDS: 0.9 % SODIUM CHLORIDE 500 ML IV (08:01)
[2023-10-20] MEDS: BUPIVACAINE HCL 0.25% PF 25 MG/10 ML VIAL 4 ML INJ (08:37)
[2023-10-20] MEDS: METHYLPREDNISOLONE ACETATE 40 MG/ML VIAL INJ (08:38)
[2023-10-20] MEDS: LIDOCAINE HCL 2% 400 MG/20 ML MDV 5 ML INJ (08:38)
[2023-10-20 08:41] VITALS: BP 138/92; PULSE 87; TEMP 36.9; O2SAT 96
[2023-10-20 08:44] VITALS: BP 132/81; PULSE 86; TEMP 36.9; O2SAT 95
--- NOTE | 2023-10-20 08:58 | W.PM.PROCNOT ---
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 Post lesioning injection of 2 mL each of 0.25% Marcaine and 2% lidocaine with Depo-Medrol 40mg. 0.5 to 1 mL injected at each site IV in place yes If Intravenous fluids: NS at KVO Anesthesia local 2% lidocaine for Anesthesia Other: MAC Timeout process compliant After informed consent obtained. Patient brought to the procedure room placed in the prone position skin overlying the area was prepped and draped in a sterile fashion using betadine. 25 gauge needle was used to create a skin wheal over each of the targeted areas utilizing 2% lidocaine. A rhizotomy needle with a 10 mm active tip was inserted over each of the anesthetized areas and directed towards four different areas in the distribution of the lateral cutaneous branches of the iliohypogastric nerve, accomplished under fluoroscopic guidance. After encountering the same we had positive sensory stimulation, negative motor stimulation was noted. lesions were then created. Post lesioning, steroid solution was injected needles removed. Patient was transferred to recovery room in stable condition to be discharged home after meeting criteria. Anesthesia: MAC Surgeon: Tejal Montaño Condition: stable
== END 2023-10-20 09:00 | disposition home or self-care (01) ==
LOC: SURGOUT 06:55
PROVIDERS: PCP Nurse Practitioner; Visit Provider Anesthesiology Pain Medicine
DX: G57.82 Other specified mononeuropathies of left lower limb (principal)
CPT/HCPCS: 64640; J0665; J1010; J2704

== ENCOUNTER 2023-10-30 06:37 | Outpatient (OUT) | payer MEDICARE, SELFPAY ==
--- OUTSIDE RECORDS SUMMARY | 2023-10-30 06:42 | XMS_ITS | CCD ---
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 Role Phone EBRAHEIM, SUKI Admitting Unavailable EBRAHEIM, SUKI Attending Unavailable AICHHOLZ, ADELAIDA Referring Unavailable AICHHOLZ, ADELAIDA Primary Care Unavailable [place] Procedure Practitioner Unavailab SUKI Jacob Surgeon Unavailable [place] Procedure Practitioner Unavailab CHAPARRITA Goncalves Surgeon Unavailable BRIDGETTE MACEDO Admitting Unavailable BRIDGETTE MAECDO Attending Unavailable AICHHOLZ, HOSPITAL EDUCATION COORDINATOR ADELAIDA Primary Care Unavailable ZIMMER ., DR FINA Iverson Admitting Unavailable ZIMMER ., DR FINA Iverson Attending Unavailable AICHHOLZ, HOSPITAL EDUCATION COORDINATOR ADELAIDA Primary Care Unavailable MCDANIEL ., ZELDA Consulting Unavailable LAKSHMIPATHY ., NARENDRANATH Consulting Paula vailable LAKSHMIPATHY ., NARENDRANATH Admitting Paula vailable LAKSHMIPATHY ., NARENDRANATH Attending Paula vailable AICHHOLZ, HOSPITAL EDUCATION COORDINATOR ADELAIDA Primary Care Unavailable LAKSHMIPATHY ., NARENDRANATH Consulting Paula vailable AICHHOLZ, HOSPITAL EDUCATION COORDINATOR ADELAIDA Primary Care Unavailable MARKER ., DR CHAUDHRY Admitting Unavailable MARKER ., DR CHAUDHRY Attending Unavailable MARKER ., DR CHAUDHRY Consulting Unavailable AICHHOLZ, HOSPITAL EDUCATION COORDINATOR ADELAIDA Admitting Unavailable AICHHOLZ, HOSPITAL EDUCATION COORDINATOR ADELAIDA Attending Unavailable AICHHOLZ, HOSPITAL EDUCATION COORDINATOR ADELAIDA Primary Care Unavailable ZIMMER ., DR FINA Iverson Admitting Unavailable ZIMMER ., DR FINA Iverson Attending Unavailable AICHHOLZ, HOSPITAL EDUCATION COORDINATOR ADELAIDA Primary Care Unavailable MCDANIEL ., ZELDA Consulting Unavailable ZIMMER ., DR FINA Iverson Admitting Unavailable ZIMMER ., DR FINA Iverson Attending Unavailable AICHHOLZ, HOSPITAL EDUCATION COORDINATOR ADELAIDA Primary Care Unavailable MCDANIEL ., ZELDA Consulting Unavailable AICHHOLZ, HOSPITAL EDUCATION COORDINATOR ADELAIDA Admitting Unavailable AICHHOLZ, HOSPITAL EDUCATION COORDINATOR ADELAIDA Attending Unavailable AICHHOLZ, HOSPITAL EDUCATION COORDINATOR ADELAIDA Primary Care Unavailable AICHHOLZ, HOSPITAL EDUCATION COORDINATOR ADELAIDA Consulting Unavailable AICHHOLZ, HOSPITAL EDUCATION COORDINATOR ADELAIDA Admitting Unavailable AICHHOLZ, HOSPITAL EDUCATION COORDINATOR ADELAIDA Attending Unavailable AICHHOLZ, HOSPITAL EDUCATION COORDINATOR ADELAIDA Primary Care Unavailable AICHHOLZ, HOSPITAL EDUCATION COORDINATOR ADELAIDA Consulting Unavailable MISC, DR COTE Admitting Unavailable MISC, DR COTE Attending Unavailable AICHHOLZ, HOSPITAL EDUCATION COORDINATOR ADELAIDA Primary Care Unavailable AICHHOLZ, HOSPITAL EDUCATION COORDINATOR ADELAIDA Consulting Unavailable PRITESHC, DR COTE Consulting Unavailable STARR, DR KINGSLEY Atkins Consulting Unavailable ZIMMER ., DR FINA Iverson Admitting Unavailable ZIMMER ., DR FINA Iverson Attending Unavailable AICHOLZ, HOSPITAL EDUCATION COORDINATOR ADELAIDA Primary Care Unavailable MCDANIEL ., ZELDA Consulting Unavailable ZIMMER ., DR FINA Iverson Admitting Unavailable ZIMMER ., DR FINA Iverson Attending Unavailable AICHOLZ, HOSPITAL EDUCATION COORDINATOR ADELAIDA Primary Care Unavailable ZIMMER ., DR FINA Iverson Consulting Unavailable OMID LAY Consulting Unavailable ZIMMER ., DR FINA Iverson Admitting Unavailable ZIMMER ., DR FINA Iverson Attending Unavailable AICHOLZ, HOSPITAL EDUCATION COORDINATOR ADELAIDA Primary Care Unavailable MCDANIEL ., ZELDA Consulting Unavailable AICHOLZ, HOSPITAL EDUCATION COORDINATOR ADELAIDA Primary Care Unavailable HALKER ., ARIAN Admitting Unavailable HALKER ., ARIAN Attending Unavailable LAKSHMIPATHY ., NARENDRANATH Consulting Paula vailable HALKER ., ARIAN Consulting Unavailable LAKSHMIPATHY ., NARENDRANATH Admitting Paula vailable LAKSHMIPATHY ., NARENDRANATH Attending Paula vailable AICHOLZ, HOSPITAL EDUCATION COORDINATOR ADELAIDA Primary Care Unavailable LAKSHMIPATHY ., NARENDRANATH Consulting Paula vailable AICHHOLZ, HOSPITAL EDUCATION COORDINATOR ADELAIDA Admitting Unavailable AICHHOLZ, HOSPITAL EDUCATION COORDINATOR ADELAIDA Attending Unavailable AICHHOLZ, HOSPITAL EDUCATION COORDINATOR ADELAIDA Primary Care Unavailable AICHHOLZ, HOSPITAL EDUCATION COORDINATOR ADELAIDA Consulting Unavailable BRIDGETTE MACEDO Admitting Unavailable BRIDGETTE MACEDO Attending Unavailable AICHHOLZ, HOSPITAL EDUCATION COORDINATOR ADELAIDA Primary Care Unavailable DR KINGSLEY CLEMENTS Consulting Unavailable BRIDGETTE MACEDO Consulting Unavailable PURA, GILMER Admitting Unavailable GILMER NEVES Attending Unavailable PURA, GILMER Consulting Unavailable AICHHOLZ, HOSPITAL EDUCATION COORDINATOR ADELAIDA Primary Care Unavailable AICHHOLZ, HOSPITAL EDUCATION COORDINATOR ADELAIDA Primary Care Unavailable DR WILLI RINALDI Admitting Unavailable DEEJAY, DR WILLI Atkins Attending Unavailable DR WILLI RINALDI Consulting Unavailable AICHHOLZ, HOSPITAL EDUCATION COORDINATOR ADELAIDA Primary Care Unavailable ALMAZ ., DANNY Admitting Unavailable ALMAZ ., DANNY Attending Unavailable DR KINGSLEY CLEMENTS Consulting Unavailable ALMAZ ., DANNY Consulting Unavailable LAKSHMIPATHY ., NARENDRANATH Admitting Paula vailable LAKSHMIPATHY ., NARENDRANATH Attending Paula vailable AICHHOLZ, HOSPITAL EDUCATION COORDINATOR ADELAIDA Primary Care Unavailable AICHHOLZ, HOSPITAL EDUCATION COORDINATOR ADELAIDA Admitting Unavailable AICHHOLZ, HOSPITAL EDUCATION COORDINATOR ADELAIDA Attending Unavailable AICHHOLZ, HOSPITAL EDUCATION COORDINATOR ADELAIDA Primary Care Unavailable AICHHOLZ, HOSPITAL EDUCATION COORDINATOR ADELAIDA Admitting Unavailable AICHHOLZ, HOSPITAL EDUCATION COORDINATOR ADELAIDA Attending Unavailable AICHHOLZ, HOSPITAL EDUCATION COORDINATOR ADELAIDA Primary Care Unavailable AICHHOLZ, HOSPITAL EDUCATION COORDINATOR ADELAIDA Consulting Unavailable DR KINGSLEY CLEMENTS Consulting Unavailable HALKER ., ARIAN Admitting Unavailable HALKER ., ARIAN Attending Unavailable AICHHOLZ, HOSPITAL EDUCATION COORDINATOR ADELAIDA Primary Care Unavailable Aichholz, Adelaida J Primary Care Provider MD Gaudencio Monk Admit Provider [phone] MD Gaudencio Monk Attending Provider JOHANN Vieira Other Provider Unavailable JOHANN Pina Other Provider Unavailable JOHANN Hurtado Other Provider Unavailable JOHANN Crooks Other Provider Unavailable JOHANN Mejias Other Provider Unavailable JOHANN Kim Other Provider Unavailable MD Walker Pringle Other Provider ROSS Marsh Other Provider [phone] DO Jessica Murillo Other Provider [phone] MD Obdulio Bragg Other Provider DO Joon Cristina Other Provider MD Torin Robert Other Provider MD Dawn Barrera Other Provider [phone] Karlene, ANP- Mari Other Provider [phone] MD Sofi Almanzar Other Provider MD Sharad [...] Graham Unavailable Adelaida Carrion Primary Care Provider [phone] MD Jace Graham Attending Provider Adelaida Carrion [...] Unavailable DoSevero navarro Consulting Unavailab kayleen AkbarRao atknis Consulting Unavailable Yuan Shi Consulting Unavailable Delroy [...] CARRION Attending Unavailable ADELAIDA CARRION Attending Unavailable SONAM WILLIAMSON Attending Unavailable SHEYLA, ADELAIDA Attending Unavailable Allergies Allergy Classification Reported Allergen(s) Allergy Type Date of Onset Reaction(s) Facility (7 sources) Adhesive Tape; Translations: [ADHESIVE TAPE] Propensity to adverse reactions (disorder) 04-06-19 14 rash [facility] Repository (3 sources) levETIRAcetam; Translations: [KEPPRA] Drug Allergy 07-02-19 19 [facility] Repository (3 sources) milnacipran; Translations: [SAVELLA] Drug Allergy 03-14-20 13 [facility] Repository (1 source) Penicillin; Translations: [PENICILLIN] Drug Allergy 01-16-20 18 [facility] Repository (5 sources) Prochlorperazin e; Translations: [COMPAZINE] Drug Allergy 03-14-20 13 agitation [facility] Repository (12 sources) Tetracycline; Translations: [TETRACYCLINE] Drug Allergy 04-06-19 13 Hives, Unknown [facility] Repository (4 sources) Penicillins Drug allergy (disorder) 04-06-19 13 Unknown Reaction [facility] Repository (9 sources) levETIRAcetam; Translations: [levetiracetam] Drug Allergy 12-13-19 22 Hallucinations , Other [facility] (9 sources) milnacipran; Translations: [milnacipran] Drug Allergy 12-13-19 22 hives, Hallucinations , Other, Unknown [facility] (7 sources) Prochlorperazin e; Translations: [prochlorperazi ne] Drug Allergy 12-13-19 22 Unknown, [facility] (2 sources) Penicillin G Drug Allergy as a child [facility] Other (2 sources) Tetracaine Drug Allergy Unknown [facility] Other (4 sources) Penicillins Drug Intolerance 12-13-19 22 Anaphylaxis [facility] (4 sources) Other Propensity to adverse reactions 12-13-19 22 Other [facility] (4 sources) Wound Dressing Adhesive Drug Allergy 09-20-19 Rash, Unknown [facility] (1 source) Penicillin Drug Allergy 12-20-19 [facility] Repository (1 source) Penicillins Drug allergy (disorder) 03-23-20 [facility] Repository (1 source) Tetracaine Drug Allergy 12-20-19 [facility] Repository Medications Current Medications Medication [...] oral capsule (8 sources) Atypical Antipsychotic Start: 023 take 1 capsule by mouth once daily [...] 23, 2023 12:00am take 2 tablets by [facility] once daily at bedtime Melatonin 10 MG 2 TABLETS Orally QHS Active Melatonin 12 MG tablet dispersible (4 sources) Melatonin 12 MG tablet dispersible 1 (one) time each day at the same time. 0 Active Multiple Vitamins-Minerals (BARIATRIC MULTIVITAMINS/IRON PO) (4 sources) Multiple Vitamins-Minerals (BARIATRIC MULTIVITAMINS/IRON PO) Bariatric Multivitamins/Iron 0 Active Mgjgmxsokain-Ing-Grng-Fa- Vit K (Bariatric Multivitamins) 45 mg iron- 800 mcg-120 mcg Capsule (2 sources) Start: 11-17-2022 take 1 capsule by mouth once daily Csxsxgnujsxs-Efr-Ldry-Fa -Vit K (Bariatric Multivitamins) 45 mg iron- 800 mcg-120 mcg Capsule Active 1 CAP PO Daily November 16, 2022 11:00pm Start: 11-17-2022 take 1 capsule by [facility] once daily Hwnjgwupuuwj-Voi-Jvfn-Fa-Vit K (Bariatri c Multivitamins) 45 mg iron- 800 mcg-120 mcg Capsule Active 1 CAP PO Daily November 17, 2022 12:00am nystatin 100 unt/mg topical powder (4 sources) Polyene Antifungal nystatin (Myc ostatin) 236206 UNIT/GM powder Apply 1 application topically in the morning and 1 application before bedtime. 0 Active OLANZapine 5 mg oral tablet (6 sources) Atypical Antipsychotic Start: 3 take 5 mg by mouth every six hours Olanzapine Active 5 MG PO Q6H 30 15 November 17, 2022 11:00pm take 1 tablet by [facility] every six hours as needed OLANZapine [...] complication (7 sources) Prediabetes; Translations: [Prediabetes] Onset: 08-01-1905-18-2023 Episodic Disorders of lipid metabolism (1 source) [...] 02-20-2022 Episodic Other aftercare (1 source) Other [facility] (current) drug therapy; Translations: [OTH [facility] CURRENT DRUG THERAPY] Onset: 04-29-2022 Episodic Other [...] on 03-23-2023 Amphetamines Ql (U) Negative Negative [facility] Barbiturates [Presence] in U rine by Screen methodOrdered By: Jace Graham on 03-23-2023 Barbiturates Screen Ql (U) Negative Negative [facility] Benzodiazepines Screen Ql (U )Ordered By: Jace Graham on 03-23-2023 Benzodiazepines Ql (U) Negative Negative [facility] Benzoylecgonine [Presence] i n Urine by Screen methodOrdered By: Jace Graham on 03-23-2023 Benzoylecgonine Screen Ql (U) Negative Negative [facility] Cannabinoids [Presence] in U rine by Screen methodOrdered By: Jace Graham on 03-23-2023 Cannabinoids Screen Ql (U) Negative Negative [facility] Comment on above: These are unconfirme d results and should not be used for legal purposes. Drug Cut-Off Concentration: AMPH 1000 ng/mL ELKIN 200 ng/mL ATIYA 200 ng/mL COCM 300 ng/mL OP 300 ng/mL PCP 25 ng/mL THC 20 ng/mL Drug Screen,Urineon 03-23-20 Amphetamine Screen,Urine Negative Normal Negative [facility] Comment on above: Performed By: #### U RDS #### [address] Barbiturate Screen,Urine Negative Normal Negative [facility] Comment on above: Performed By: #### U RDS #### [place] [address] [place] Benzodiazepines Screen,Urine Negative Normal Negative [facility] Comment on above: Performed By: #### U RDS #### [address] Cannabinoid Screen,Urine Negative Normal Negative [facility] Comment on above: Result Comment: Thes e are unconfirmed results and should not be used for legal purposes. Drug Cut-Off Concentration: AMPH 1000 ng/mL ELKIN 200 ng/mL ATIYA 200 ng/mL COCM 300 ng/mL OP 300 ng/mL PCP 25 ng/mL THC 20 ng/mL PERFORMED BY: [place] [address] PATHOLOGIST MATCHER OPERATOR AN CURRY M.D. Performed By: #### U RDS #### [place] [address] [place] Cocaine Screen,Urine Negative Normal Negative [facility] Comment on above: Performed By: #### U RDS #### [place] [address] [place] Opiate Screen,Urine Negative Normal Negative [facility] Comment on above: Performed By: #### U RDS #### [facility] [address] Phencyclidine Screen,Urine Negative Normal Negative [facility] Comment on above: Performed By: #### U RDS #### [facility] [address] Opiates [Presence] in Urine by Screen methodOrdered By: Jace Graham on 03-23-2023 Opiates Screen Ql (U) Negative Negative [facility] Phencyclidine Screen Ql (U)O rdered By: Jace Graham on 03-23-2023 Phencyclidine Ql (U) Negative Negative [facility] Cholesterol [Mass/volume] in Serum or PlasmaOrdered [...] risk Performed By: #### L IPID #### [facility] [address] Cholesterol in LDL Calc [Mas s/Vol]Ordered By: Eduardo Monk on 11-18-2022 Cholesterol in LDL [Mass/Vol] 84 mg/dL 0-100 [facility] Comment on above: LDL ATP III CLASSIFI CATIONLDL less than 100 mg/dL OptimalLDL 100-129 mg/dL Near or above optimalLDL 130-159 mg/dL Borderline highLDL 160-189 mg/dL HighLDL greater than 189 mg/dL Very high Cholesterol in VLDL Calc [Ma ss/Vol]Ordered By: Eduardo Monk on 11-18-2022 Cholesterol in VLDL [Mass/Vol] 28 mg/dL [facility] Lipid Panelon 11-18-2022 LDL Cholesterol,Calculated 84 mg/dL Normal 0-100 [facility] Comment on above: Order Comment: teri barney to tomorrow morning Result Comment: LDL ATP III CLASSIFICATION LDL less than 100 mg/dL Optimal LDL 100-129 mg/dL Near or above optimal LDL 130-159 mg/dL Borderline high LDL 160-189 mg/dL High LDL greater than 189 mg/dL Very high Performed By: #### L IPID #### [facility] [id number] [facility] Triglyceride w/Reflex 144 mg/dL Normal 0-149 [facility] Comment on above: Order Comment: teri barney to orr morning Result Comment: TRIG ATP III CLASSIFICATION TRIG less than 150 mg/dL Normal TRIG 150-199 mg/dL Borderline high TRIG 200-500 mg/dL High TRIG greater than 500 mg/dL Very high Standard traceable to the Center for Disease Conrtrol and Prevention (CDC) test method. Performed By: #### L IPID #### [facility] [address] VLDL CHOLESTEROL 28 mg/dL Normal [facility] Comment on above: Order Comment: teri barney to Performed By: #### L IPID #### [facility] [address] [id number] [facility] Serum or plasma high density lipoprotein (HDL) cholesterol measurementOrdered By: Eduardo Monk on 11-18-2022 Cholesterol in HDL [Mass/Vol] 46 mg/dL Normal 23-92 [facility] Comment on above: HDL CHOL ATP-III CLA SSIFICATION Cardiovascular RiskHDL > or equal to 60 mg/dL LOWHDL < 40 mg/dL HIGH Order Comment: teri barney to Result Comment: HDL CHOL ATP-III CLASSIFICATION Cardiovascular Risk HDL > or equal to 60 mg/dL LOW HDL < 40 mg/dL HIGH Performed By: #### L IPID #### [facility] [address] [id number] [facility] Serum or plasma total choles terol/high density lipoprotein (HDL) cholesterol mass ratOrdered By: Eduardo Monk on 11-18-2022 Cholesterol.total/Chol esterol in HDL [Mass ratio] 3.5 {ratio} Normal <5.0 [facility] Comment on above: Order Comment: teri barney to tomorrow morning Result Comment: PERF ORMED BY: [place] [address] PATHOLOGIST MATCHER OPERATOR AN CURRY M.D. Performed By: #### L IPID #### [facility] [address] [place] [address] Thyrotropin [Units/volume] i n Serum or PlasmaOrdered By: Eduardo Monk on 11-18-2022 TSH Qn 2.13 m[IU]/L Normal 0.45-5.33 [facility] Comment on above: Performed By: #### T SH3, [id number] #### [address] Triglyceride [Mass/volume] i n Serum or PlasmaOrdered By: Eduardo Monk on 11-18-2022 Triglyceride [Mass/Vol] 144 mg/dL 0-149 [facility] Comment on above: TRIG ATP III CLASSIF ICATIONTRIG less than 150 mg/dL NormalTRIG 150-199 mg/dL Borderline highTRIG 200-500 mg/dL High TRIG greater than 500 mg/dL Very highStandard traceable to the Center for Disease Conrtrol and Prevention (CDC) test method. Vitamin D 25 Hydroxy Totalon 11-18-2022 Vitamin D 25 Hydroxy Total 50.4 ng/mL Normal 30-100 [facility] Comment on above: Result Comment: SKYLER MIN D STATUS 25(OH)VITAMIN D RANGE (ng/mL) Deficient <20 Insufficient 20 to <30 Sufficient 30 to 100 Reference: Bin MF,Lakshmi NC, Cristian SMART, et al. Evaluation,treatment, and prevention of vitamin D deficiency; an Endocrine Society clinical practice guideline. JCEM. 2010; 96(7):1911-30. PERFORMED BY: [place] [address] PATHOLOGIST MATCHER OPERATOR AN CURRY M.D. Performed By: #### T SH3, [id number] #### [address] Vitamin D+Metabolites [Mass/ volume] in Serum or PlasmaOrdered By: Eduardo Monk on 11-18-2022 Vitamin D+Metabolites [Mass/Vol] 50.4 ng/mL 30-100 [facility] Comment on above: VITAMIN D STATUS 25( [place])VITAMIN D RANGE (ng/mL) Deficient <20 Insufficient 20 to <30Sufficient 30 to 100Reference: Bin MF,Lakshmi NC, Cristian SMART, et al. Evaluation,treatment, and prevention of vitamin D deficiency; an Endocrine Society clinical practice guideline. JCEM. 2010; 96(8):1911-30. CBC AUTO DIFFon 07-25-2022 BASO # 0.1 103/ul Normal 0.0-0.1 [facility] Comment on above: Performed By: #### A 1C #### [facility] [address] [address] [address] Bebeto Alvarado Basophils/100 WBC (Bld) 0.6 % Normal 0.2-2.0 [facility] Comment on above: Performed By: #### A 1C #### [facility] [address] [address] [address] Bebeto Alvarado EO # 0.2 103/ul Normal 0.0-0.7 [facility] Comment on above: Performed By: #### A 1C #### [facility] [address] [address] [address] Bebeto Alvarado Eosinophils/100 WBC (Bld) 2.3 % Normal 0.9-7.0 [facility] Comment on above: Performed By: #### A 1C #### [facility] [address] [address] [address] Bebeto Alvarado Erythrocyte distribution width (RBC) [Ratio] 13.8 % Normal 11.0-15.0 [facility] Comment on above: Performed By: #### A 1C #### [facility] [address] [address] [address] Bebeto Alvarado Hematocrit (Bld) [Volume fraction] 41.2 % Normal 36.0-48.0 [facility] Comment on above: Performed By: #### A 1C #### [facility] [address] [place] [address] Dr. Bebeto Alvarado Hemoglobin (Bld) [Mass/Vol] 13.2 g/dL Normal 12.0-16.0 [facility] Comment on above: Performed By: #### A 1C #### [facility] [address] [place] [address] Dr. Bebeto Alvarado IG # 0.03 10e3/ul Normal 0.00-0.03 [facility] Comment on above: Performed By: #### A 1C #### [facility] [address] [place] [address] Dr. Bebeto Alvarado IG % 0.4 % Normal 0.0-0.5 [facility] Comment on above: Performed By: #### A 1C #### [facility] [address] [place] [address] Dr. Bebeto Alvarado LYMPH # 2.1 103/ul Normal 1.2-3.8 [facility] Comment on above: Performed By: #### A 1C #### [facility] [address] [place] [address] Dr. Bebeto Alvarado Lymphocytes/100 WBC (Bld) 25.9 % Normal 20.5-60.0 [facility] Comment on above: Performed By: #### A 1C #### [facility] [address] [place] [address] Dr. Bebeto Alvarado MANUAL DIFF REQ NO Normal [facility] Comment on above: Performed By: #### A 1C #### [facility] [address] [place] [address] Dr. Bebeto Alvarado MCH (RBC) [Entitic mass] 28.0 pg Normal 26.7-34.0 [facility] Comment on above: Performed By: #### A 1C #### [facility] [address] [place] [address] Dr. Bebeto Alvarado MCHC (RBC) [Mass/Vol] 32.0 g/dL Normal 29.9-35.2 [facility] Comment on above: Performed By: #### A 1C #### [facility] [address] [place] [address] Dr. Bebeto Alvarado MCV (RBC) [Entitic vol] 87.5 fL Normal 81.0-99.0 [facility] Comment on above: Performed By: #### A 1C #### [facility] [address] [place] [address] Dr. Bebeto Alvarado MONO # 0.5 103/ul Normal 0.3-0.8 [facility] Comment on above: Performed By: #### A 1C #### [facility] [address] [place] [address] Dr. Bebeto Alvarado Monocytes/100 WBC (Bld) 6.6 % Normal 1.7-12.0 [facility] Comment on above: Performed By: #### A 1C #### [facility] [address] [place] [address] Dr. Bebeto Alvarado NEUT # 5.1 103/ul Normal 1.4-6.5 [facility] Comment on above: Performed By: #### A 1C #### [facility] [address] [place] [address] Dr. Bebeto Alvarado Neutrophils/100 WBC (Bld) 64.2 % Normal 43.0-75.0 [facility] Comment on above: Performed By: #### A 1C #### [facility] [address] [place] [address] Dr. Bebeto Alvarado Platelet mean volume (Bld) [Entitic vol] 11.2 fL Normal 9.5-13.5 [facility] Comment on above: Performed By: #### A 1C #### [facility] [address] [place] [address] Dr. Bebeto Alvarado PLT 252 103/ul Normal 150-450 [facility] Comment on above: Performed By: #### A 1C #### [facility] [address] [place] [address] Dr. Bebeto Alvarado RBC 4.71 106/ul Normal 4.20-5.40 [facility] Comment on above: Performed By: #### A 1C #### [facility] [address] [place] [address] Dr. Bebeto Alvarado WBC 8.0 103/ul Normal 4.0-11.0 [facility] Comment on above: Performed By: #### A 1C #### [facility] [address] [address] [address] Bebeto Alvarado GLYCOHEMOGLOBIN A1Con 2022 ADA RECOMMENDATION SEE BELOW Normal [facility] Comment on above: Result Comment: ADA RECOMMENDED LIMIT 4.0 - 6.0 ADA THERAPEUTIC TARGET < 7.0 ACTION SUGGESTED > 7.0 Performed By: #### A 1C #### [facility] [address] [address] [address] Bebeto Alvarado Glucose [Mass/Vol] 114 mg/dL Normal [facility] Comment on above: Performed By: #### A 1C #### [facility] [address] [address] [address] Bebeto Alvarado HbA1c (Bld) [Mass fraction] 5.6 % Normal 4.5-6.2 [facility] Comment on above: Performed By: #### A 1C #### [facility] [address] [address] [address] Bebeto Alvarado IRONon 07-25-2022 Iron [Mass/Vol] 60.0 ug/dL Normal 50.0-170.0 [facility] Comment on above: Performed By: #### V ITB12, IRON #### [facility] [address] [place] [address] Dr. Bebeto Alvarado LIPID PROFILEon 07-25-2022 CHOL-HDL RATIO NORM SEE BELOW Normal [facility] Comment on above: Result Comment: 3.3 - 4.4 LOW RISK 4.4 - 7.1 AVERAGE RISK 7.1 - 11.0 MODERATE RISK >11.0 HIGH RISK Performed By: #### C MP, LIPID #### [facility] [address] [place] [address] Dr. Bebeto Alvarado Cholesterol [Mass/Vol] 144 mg/dL Normal <=200 Th [facility] Comment on above: Performed By: #### C MP, LIPID #### [facility] [address] [place] [address] Dr. Bebeto Alvaardo Cholesterol in HDL [Mass/Vol] 39 mg/dL Critically low 40-60 [facility] Comment on above: Performed By: #### C MP, LIPID #### [facility] [address] [address] [address] Bebeto Alvarado Cholesterol in LDL [Mass/Vol] 74.6 mg/dL Normal [facility] Comment on above: Performed By: #### C MP, LIPID #### [facility] [address] [address] [address] Bebeto Alvarado Cholesterol.total/Chol esterol in HDL [Mass ratio] 3.7 {ratio} Normal [facility] Comment on above: Performed By: #### C MP, LIPID #### [facility] [address] [address] [address] Bebeto Alvarado HDL NORMAL > or = 60 mg/dl - LO W CARDIOVASCULAR RISK <40 mg/dl - HIGH CARDIOVASCULAR RISK Normal [facility] Comment on above: Performed By: #### C MP, LIPID #### [facility] [address] [place] [address] Dr. Bebeto Alvarado LDL CALC NORMAL SEE BELOW Normal [facility] Comment on above: Result Comment: <100 mg/dl OPTIMAL 100 - 129 mg/dl NEAR OR ABOVE OPTIMAL 130 - 159 mg/dl BORDERLINE HIGH 160 - 189 mg/dl HIGH >190 mg/dl VERY HIGH Performed By: #### C MP, LIPID #### [facility] [address] [place] [address] Dr. Bebeto Alvarado Triglyceride [Mass/Vol] 152 mg/dL Critically high <=150 [facility] Comment on above: Performed By: #### C MP, LIPID #### [facility] [address] [address] [address] Bebeto Alvarado VLDL CALC 30.4 mg/dL Normal [facility] Comment on above: Performed By: #### C MP, LIPID #### [facility] [address] [address] [address] Bebeto Alvarado PROF 14(COMP METB)on 023 Albumin [Mass/Vol] 3.7 g/dL Normal 3.4-5.0 [facility] Comment on above: Performed By: #### C MP, LIPID #### [facility] [address] [address] [address] Bebeto Alvarado Albumin/Globulin [Mass ratio] 0.9 {ratio} Normal [facility] Comment on above: Performed By: #### C MP, LIPID #### [facility] [address] [address] [address] Bebeto Alvarado ALP [Catalytic activity/Vol] 90 U/L Normal 46-116 [facility] Comment on above: Performed By: #### C MP, LIPID #### [facility] [address] [address] [address] Bebeto Alvarado ALT [Catalytic activity/Vol] 38 U/L Normal 14-59 [facility] Comment on above: Performed By: #### C MP, LIPID #### [facility] [address] [address] [address] Bebeto Alvarado Anion gap [Moles/Vol] 12.1 mmol/L Normal [facility] Comment on above: Performed By: #### C MP, LIPID #### [facility] [address] [address] [address] Bebeto Alvarado AST [Catalytic activity/Vol] 26 U/L Normal 15-37 [facility] Comment on above: Performed By: #### C MP, LIPID #### [facility] [address] [address] [address] Bebeto Alvarado Bilirubin [Mass/Vol] 0.3 mg/dL Normal 0.2-1.0 [facility] Comment on above: Performed By: #### C MP, LIPID #### [facility] [address] [address] [address] Bebeto Alvarado Calcium [Mass/Vol] 9.3 mg/dL Normal 8.5-10.1 [facility] Comment on above: Performed By: #### C MP, LIPID #### [facility] [address] [address] [address] Bebeto Alvarado Chloride [Moles/Vol] 107 mmol/L Normal 98-107 [facility] Comment on above: Performed By: #### C MP, LIPID #### [facility] [address] [address] [address] Bebeto Alvarado CO2 [Moles/Vol] 27.9 mmol/L Normal 21.0-32.0 [facility] Comment on above: Performed By: #### C MP, LIPID #### [facility] [address] [address] [address] Bebeto Alvarado Creatinine [Mass/Vol] 0.95 mg/dL Normal 0.55-1.02 [facility] Comment on above: Performed By: #### C MP, LIPID #### [facility] [address] [address] [address] Bebeto Alvarado EGFR-AF CITIZEN OF [place] >60 Normal >=60 [facility] Comment on above: Performed By: #### C MP, LIPID #### [facility] [address] [address] [address] Bebeto Alvarado EGFR-NON AF CITIZEN OF [place] 60 mL/min/1.73m2 Normal >=60 [facility] Comment on above: Performed By: #### C MP, LIPID #### [facility] [address] [address] [address] Bebeto Alvarado Globulin (S) [Mass/Vol] 3.9 g/dL Normal [facility] Comment on above: Performed By: #### C MP, LIPID #### [facility] [address] [address] [address] Bebeto Alvarado Glucose [Mass/Vol] 108 mg/dL Critically high 74-106 [facility] Comment on above: Performed By: #### C MP, LIPID #### [facility] [address] [address] [address] Bebeto Alvarado Potassium [Moles/Vol] 4.0 mmol/L Normal 3.5-5.1 [facility] Comment on above: Performed By: #### C MP, LIPID #### [facility] [address] [address] [address] Bebeto Alvarado Protein [Mass/Vol] 7.6 g/dL Normal 6.4-8.[address] [facility] Comment on above: Performed By: #### C MP, LIPID #### [facility] [address] [place] [address] Dr. Bebeto Alvarado Sodium [Moles/Vol] 143 mmol/L Normal 136-145 [facility] Comment on above: Performed By: #### C MP, LIPID #### [facility] [address] [place] [address] Dr. Bebeto Alvarado Urea nitrogen [Mass/Vol] 15.0 mg/dL Normal 7.0-18.0 [facility] Comment on above: Performed By: #### C MP, LIPID #### [facility] [address] [place] [address] Dr. Bebeto Alvarado Urea nitrogen/Creatinine [Mass ratio] 15.8 mg/mg Normal [facility] Comment on above: Performed By: #### C MP, LIPID #### [facility] [address] [place] [address] Dr. Bebeto Alvarado UA RANDOM W/MICROSCOPICon BACTERIA NONE SEEN Normal NONE [facility] Comment on above: Performed By: #### A 1C #### [facility] [address] [place] [address] Dr. Bebeto Alvarado Bilirubin Ql (U) Negative Normal NEGATIVE [facility] Comment on above: Performed By: #### A 1C #### [facility] [address] [place] [address] Dr. Bebeto Alvarado CAST NONE SEEN Normal NONE [facility] Comment on above: Performed By: #### A 1C #### [facility] [address] [place] [address] Dr. Bebeto Alvarado Clarity (U) CLEAR Normal CLEAR [facility] Comment on above: Performed By: #### A 1C #### [facility] [address] [place] [address] Dr. Bebeto Alvarado Color (U) YELLOW Normal YELLOW [facility] Comment on above: Performed By: #### A 1C #### [facility] [address] [place] [address] Dr. Bebeto Alvarado Crystals LM Nom (Urine sed) NONE SEEN Normal NONE [facility] Comment on above: Performed By: #### A 1C #### [facility] [address] [place] [address] Dr. Bebeto Alvarado Epithelial cells LM Ql (Urine sed) NONE SEEN Normal NONE SEEN /RARE [facility] Comment on above: Performed By: #### A 1C #### [facility] [address] [place] [address] Dr. Bebeto Alvarado Glucose Ql (U) Negative Normal NEGATIVE [facility] Comment on above: Performed By: #### A 1C #### [facility] [address] [place] [address] Dr. Bebeto Alvarado Hemoglobin Ql (U) Negative Normal NEGATIVE [facility] Comment on above: Performed By: #### A 1C #### [facility] [address] [place] [address] Dr. Bebeto Alvarado Ketones Ql (U) Negative Normal NEGATIVE [facility] Comment on above: Performed By: #### A 1C #### [facility] [address] [place] [address] Dr. Bebeto Alvarado LEUKOCYTES Negative Normal NEGATIVE [facility] Comment on above: Performed By: #### A 1C #### [facility] [address] [place] [address] Dr. Bebeto Alvarado MUCOUS NONE SEEN Normal NONE SEEN [facility] Comment on above: Performed By: #### A 1C #### [facility] [address] [place] [address] Dr. Bebeto Alvarado Nitrite Ql (U) Negative Normal NEGATIVE [facility] Comment on above: Performed By: #### A 1C #### [facility] [address] [place] [address] Dr. Bebeto Alvarado pH (U) 5.5 [pH] Normal 5-9 [facility] Comment on above: Performed By: #### A 1C #### [facility] [address] [place] [address] Dr. Bebeto Alvarado RBC NONE SEEN Abnormal 0-2 [facility] Comment on above: Performed By: #### A 1C #### [facility] [address] [place] [address] Dr. Bebeto Alvarado SPEC GRAVITY 1.030 Abnormal 1.005-<=1.02 5 [facility] Comment on above: Performed By: #### A 1C #### [facility] [address] [place] [address] Dr. Bebeto Alvarado UA PROTEIN Negative Normal NEGATIVE/ TRACE [facility] Comment on above: Performed By: #### A 1C #### [facility] [address] [place] [address] Dr. Bebeto Alvarado Urobilinogen Qn (U) 0.2 {Katerin'U}/dL Normal 0.2 - 1. 0 [facility] Comment on above: Performed By: #### A 1C #### [facility] [address] [place] [address] Dr. Bebeto Alvarado WBC NONE SEEN Normal NONE SEEN [facility] Comment on above: Performed By: #### A 1C #### [facility] [address] [place] [address] Dr. Bebeto Alvarado VITAMIN B12on 07-25-2022 Cobalamin (Vitamin B12) [Mass/Vol] 1684.0 pg/mL Critically high 193.0-986.0 [facility] Comment on above: Performed By: #### V ITB12, IRON #### [facility] [address] [place] [address] Dr. Bebeto Alvarado PROF CHEM 8 (BAS METB)on Anion gap [Moles/Vol] 12.2 mmol/L Normal [facility] Comment on above: Performed By: #### B MP #### [facility] [address] [place] [address] Dr. Bebeto Alvarado Calcium [Mass/Vol] 8.9 mg/dL Normal 8.5-10.[address] [facility] Comment on above: Performed By: #### B MP #### [facility] [address] [place] [address] Dr. Bebeto Alvarado Chloride [Moles/Vol] 105 mmol/L Normal 98-107 [facility] Comment on above: Performed By: #### B MP #### [facility] [address] [place] [address] Dr. Bebeto Alvarado CO2 [Moles/Vol] 29.6 mmol/L Normal 21.0-32.0 The [facility] Comment on above: Performed By: #### B MP #### [facility] [address] [address] [address] Bebeto Alvarado Creatinine [Mass/Vol] 0.95 mg/dL Normal 0.55-1.02 [facility] Comment on above: Performed By: #### B MP #### [facility] [address] [address] [address] Beebto Alvarado EGFR-AF CITIZEN OF [place] >60 Normal >=60 The [facility] Comment on above: Performed By: #### B MP #### [facility] [address] [place] [address] Dr. Bebeto Alvarado EGFR-NON AF CITIZEN OF [place] 60 mL/min/1.73m2 Normal >=60 [facility] Comment on above: Performed By: #### B MP #### [facility] [address] [place] [address] Dr. Bebeto Alvarado Glucose [Mass/Vol] 101 mg/dL Normal 74-[address] [facility] Comment on above: Performed By: #### B MP #### [facility] [address] [place] [address] Dr. Bebeto Alvarado Potassium [Moles/Vol] 3.8 mmol/L Normal 3.5-5.1 [facility] Comment on above: Performed By: #### B MP #### [facility] [address] [place] [address] Dr. Bebeto Alvarado Sodium [Moles/Vol] 143 mmol/L Normal 136-[address] [facility] Comment on above: Performed By: #### B MP #### [facility] [address] [place] [address] Dr. Bebeto Alvarado Urea nitrogen [Mass/Vol] 16.0 mg/dL Normal 7.0-18.0 [facility] Comment on above: Performed By: #### B MP #### [facility] [address] [place] [address] Dr. Bebeto Alvarado Urea nitrogen/Creatinine [Mass ratio] 16.8 mg/mg Normal [facility] Comment on above: Performed By: #### B MP #### [facility] [address] [place] [address] Dr. Bebeto Alvarado CBC AUTO DIFFon 11-21-2021 BASO # 0.1 103/ul Normal 0.0-0.1 [facility] Comment on above: Performed By: #### A 1C #### [facility] [address] [place] [address] Dr. Bebeto Alvarado Basophils/100 WBC (Bld) 1.0 % Normal 0.2-2.0 [facility] Comment on above: Performed By: #### A 1C #### [facility] [address] [place] [address] Dr. Bebeto Alvarado EO # 0.2 103/ul Normal 0.0-0.7 [facility] Comment on above: Performed By: #### A 1C #### [facility] [address] [place] [address] Dr. Bebeto Alvarado Eosinophils/100 WBC (Bld) 3.3 % Normal 0.9-7.0 [facility] Comment on above: Performed By: #### A 1C #### [facility] [address] [place] [address] Dr. Bebeto Alvarado Erythrocyte distribution width (RBC) [Ratio] 13.8 % Normal 11.0-15.0 [facility] Comment on above: Performed By: #### A 1C #### [facility] [address] [place] [address] Dr. Bebeto Alvarado Hematocrit (Bld) [Volume fraction] 38.8 % Normal 36.0-48.0 [facility] Comment on above: Performed By: #### A 1C #### [facility] [address] [place] [address] Dr. Bebeto Alvarado Hemoglobin (Bld) [Mass/Vol] 12.5 g/dL Normal 12.0-16.0 [facility] Comment on above: Performed By: #### A 1C #### [facility] [address] [place] [address] Dr. Bebeto Alvarado IG # 0.02 10e3/ul Normal 0.00-0.03 [facility] Comment on above: Performed By: #### A 1C #### [facility] [address] [place] [address] Dr. Bebeto Alvarado IG % 0.3 % Normal 0.0-0.5 [facility] Comment on above: Performed By: #### A 1C #### [facility] [address] [place] [address] Dr. Bebeto Alvarado LYMPH # 1.9 103/ul Normal 1.2-3.8 [facility] Comment on above: Performed By: #### A 1C #### [facility] [address] [place] [address] Dr. Bebeto Alvarado Lymphocytes/100 WBC (Bld) 29.6 % Normal 20.5-60.0 [facility] Comment on above: Performed By: #### A 1C #### [facility] [address] [place] [address] Dr. Bebeto Alvarado MANUAL DIFF REQ NO Normal [facility] Comment on above: Performed By: #### A 1C #### [facility] [address] [place] [address] Dr. Bebeto Alvarado MCH (RBC) [Entitic mass] 28.0 pg Normal 26.7-34.0 [facility] Comment on above: Performed By: #### A 1C #### [facility] [address] [place] [address] Dr. Bebeto Alvarado MCHC (RBC) [Mass/Vol] 32.2 g/dL Normal 29.9-35.2 [facility] Comment on above: Performed By: #### A 1C #### [facility] [address] [place] [address] Dr. Bebeto Alvarado MCV (RBC) [Entitic vol] 86.8 fL Normal 81.0-99.0 [facility] Comment on above: Performed By: #### A 1C #### [facility] [address] [place] [address] Dr. Bebeot Alvarado MONO # 0.4 103/ul Normal 0.3-0.8 [facility] Comment on above: Performed By: #### A 1C #### [facility] [address] [address] [address] Bebeto Alvarado Monocytes/100 WBC (Bld) 5.7 % Normal 1.7-12.0 [facility] Comment on above: Performed By: #### A 1C #### [facility] [address] [address] [address] Bebeto Alvarado NEUT # 3.8 103/ul Normal 1.4-6.5 [facility] Comment on above: Performed By: #### A 1C #### [facility] [address] [place] [address] Dr. Bebeto Alvarado Neutrophils/100 WBC (Bld) 60.1 % Normal 43.0-75.0 [facility] Comment on above: Performed By: #### A 1C #### [facility] [address] [place] [address] Dr. Bebeto Alvarado Platelet mean volume (Bld) [Entitic vol] 11.0 fL Normal 9.5-13.5 [facility] Comment on above: Performed By: #### A 1C #### [facility] [address] [place] [address] Dr. Bebeto Alvarado PLT 264 103/ul Normal 150-450 [facility] Comment on above: Performed By: #### A 1C #### [facility] [address] [place] [address] Dr. Bebeto Alvarado RBC 4.47 106/ul Normal 4.20-5.40 [facility] Comment on above: Performed By: #### A 1C #### [facility] [address] [place] [address] Dr. Bebeto Alvarado WBC 6.3 103/ul Normal 4.0-11.0 [facility] Comment on above: Performed By: #### A 1C #### [facility] [address] [place] [address] Dr. Bebeto Alvarado GLYCOHEMOGLOBIN A1Con 2021 ADA RECOMMENDATION SEE BELOW Normal [facility] Comment on above: Result Comment: ADA RECOMMENDED LIMIT 4.0 - 6.0 ADA THERAPEUTIC TARGET < 7.0 ACTION SUGGESTED > 7.0 Performed By: #### A 1C #### [facility] [address] [address] [address] Bebeto Alvarado Glucose [Mass/Vol] 105 mg/dL Normal [facility] Comment on above: Performed By: #### A 1C #### [facility] [address] [address] [address] Bebeto Alvarado HbA1c (Bld) [Mass fraction] 5.3 % Normal 4.5-6.2 [facility] Comment on above: Performed By: #### A 1C #### [facility] [address] [place] [address] Dr. Bebeto Alvarado IRONon 11-21-2021 Iron [Mass/Vol] 59.0 ug/dL Normal 50.0-170.0 [facility] Comment on above: Performed By: #### A 1C #### [facility] [address] [place] [address] Dr. Bebeto Alvarado LIPID PROFILEon 11-21-2021 CHOL-HDL RATIO NORM SEE BELOW Normal [facility] Comment on above: Result Comment: 3.3 - 4.4 LOW RISK 4.4 - 7.1 AVERAGE RISK 7.1 - 11.0 MODERATE RISK >11.0 HIGH RISK Performed By: #### C MP, LIPID #### [facility] [address] [place] [address] Dr. Bebeto Alvarado Cholesterol [Mass/Vol] 139 mg/dL Normal <=200 [facility] Comment on above: Performed By: #### C MP, LIPID #### [facility] [address] [place] [address] Dr. Bebeto Alvarado Cholesterol in HDL [Mass/Vol] 35 mg/dL Critically low 40-60 [facility] Comment on above: Performed By: #### C MP, LIPID #### [facility] [address] [place] [address] Dr. Bebeto Alvarado Cholesterol in LDL [Mass/Vol] 69.6 mg/dL Normal [facility] Comment on above: Performed By: #### C MP, LIPID #### [facility] [address] [address] [address] Bebeto Alvarado Cholesterol.total/Chol esterol in HDL [Mass ratio] 4.0 {ratio} Normal [facility] Comment on above: Performed By: #### C MP, LIPID #### [facility] [address] [address] [address] Bebeto Alvarado HDL NORMAL > or = 60 mg/dl - LO W CARDIOVASCULAR RISK <40 mg/dl - HIGH CARDIOVASCULAR RISK Normal [facility] Comment on above: Performed By: #### C MP, LIPID #### [facility] [address] [address] [address] Bebeto Alvarado LDL CALC NORMAL SEE BELOW Normal [facility] Comment on above: Result Comment: <100 mg/dl OPTIMAL 100 - 129 mg/dl NEAR OR ABOVE OPTIMAL 130 - 159 mg/dl BORDERLINE HIGH 160 - 189 mg/dl HIGH >190 mg/dl VERY HIGH Performed By: #### C MP, LIPID #### [facility] [address] [place] [address] Dr. Bebeto Alvarado Triglyceride [Mass/Vol] 172 mg/dL Critically high <=150 [facility] Comment on above: Performed By: #### C MP, LIPID #### [facility] [address] [place] [address] Dr. Bebeto Alvarado VLDL CALC 34.4 mg/dL Normal [facility] Comment on above: Performed By: #### C MP, LIPID #### [facility] [address] [place] [address] Dr. Bebeto Alvarado PROF 14(COMP METB)on 022 Albumin [Mass/Vol] 3.8 g/dL Normal 3.4-5.0 [facility] Comment on above: Performed By: #### C MP, LIPID #### [facility] [address] [place] [address] Dr. Bebeto Alvarado Albumin/Globulin [Mass ratio] 1.1 {ratio} Normal [facility] Comment on above: Performed By: #### C MP, LIPID #### [facility] [address] [place] [address] Dr. Bebeto Alvarado ALP [Catalytic activity/Vol] 96 U/L Normal 46-116 [facility] Comment on above: Performed By: #### C MP, LIPID #### [facility] [address] [place] [address] Dr. Bebeto Alvarado ALT [Catalytic activity/Vol] 25 U/L Normal 14-59 [facility] Comment on above: Performed By: #### C MP, LIPID #### [facility] [address] [place] [address] Dr. Bebeto Alvarado Anion gap [Moles/Vol] 11.8 mmol/L Normal [facility] Comment on above: Performed By: #### C MP, LIPID #### [facility] [address] [place] [address] Dr. Bebeto Alvarado AST [Catalytic activity/Vol] 20 U/L Normal 15-37 [facility] Comment on above: Performed By: #### C MP, LIPID #### [facility] [address] [place] [address] Dr. Bebeto Alvarado Bilirubin [Mass/Vol] 0.4 mg/dL Normal 0.2-1.0 [facility] Comment on above: Performed By: #### C MP, LIPID #### [facility] [address] [place] [address] Dr. Bebeto Alvarado Calcium [Mass/Vol] 8.8 mg/dL Normal 8.5-10.1 [facility] Comment on above: Performed By: #### C MP, LIPID #### [facility] [address] [place] [address] Dr. Bebeto Alvarado Chloride [Moles/Vol] 106 mmol/L Normal 98-107 [facility] Comment on above: Performed By: #### C MP, LIPID #### [facility] [address] [place] [address] Dr. Bebeto Alvarado CO2 [Moles/Vol] 27.0 mmol/L Normal 21.0-32.0 [facility] Comment on above: Performed By: #### C MP, LIPID #### [facility] [address] [place] [address] Dr. Bebeto Alvarado Creatinine [Mass/Vol] 0.97 mg/dL Normal 0.55-1.02 [facility] Comment on above: Performed By: #### C MP, LIPID #### [facility] [address] [address] [address] Bebeto Alvarado EGFR-AF CITIZEN OF [place] >60 Normal >=60 [facility] Comment on above: Performed By: #### C MP, LIPID #### [facility] [address] [address] [address] Bebeto Alvarado EGFR-NON AF CITIZEN OF [place] 59 mL/min/1.73m2 Critically low >=60 [facility] Comment on above: Performed By: #### C MP, LIPID #### [facility] [address] [place] [address] Dr. Bebeto Alvarado Globulin (S) [Mass/Vol] 3.4 g/dL Normal [facility] Comment on above: Performed By: #### C MP, LIPID #### [facility] [address] [place] [address] Dr. Bebeto Alvarado Glucose [Mass/Vol] 103 mg/dL Normal 74-106 [facility] Comment on above: Performed By: #### C MP, LIPID #### [facility] [address] [place] [address] Dr. Bebeto Alvarado Potassium [Moles/Vol] 3.8 mmol/L Normal 3.5-5.1 [facility] Comment on above: Performed By: #### C MP, LIPID #### [facility] [address] [place] [address] [address] Bebeto Alvarado Protein [Mass/Vol] 7.2 g/dL Normal 6.4-8.[address] [facility] Comment on above: Performed By: #### C MP, LIPID #### [facility] [address] [place] [address] Dr. Bebeto Alvarado Sodium [Moles/Vol] 141 mmol/L Normal 136-145 [facility] Comment on above: Performed By: #### C MP, LIPID #### [facility] [address] [place] [address] Dr. Bebeto Alvarado Urea nitrogen [Mass/Vol] 11.0 mg/dL Normal 7.0-18.0 [facility] Comment on above: Performed By: #### C MP, LIPID #### [facility] [address] [place] [address] Dr. Bebeto Alvarado Urea nitrogen/Creatinine [Mass ratio] 11.3 mg/mg Normal [facility] Comment on above: Performed By: #### C MP, LIPID #### [facility] [address] [place] [address] Dr. Bebeto Alvarado URIC ACID SERUMon 11-21-2021 Urate [Mass/Vol] 7.3 mg/dL Critically high 2.6-6.0 [facility] Comment on above: Performed By: #### A 1C #### [facility] [address] [place] [address] Dr. Bebeto Alvarado VITAMIN B12on 11-21-2021 Cobalamin (Vitamin B12) [Mass/Vol] 2123.0 pg/mL Critically high 193.0-986.0 [facility] Comment on above: Performed By: #### A 1C #### [facility] [address] [place] [address] Dr. Bebeto Alvarado Physician Referralon 022 Physician Referral [id number] Normal [facility] KNEE RIGHT 1 OR 2 [facility] KNEE RIGHT 1 OR 2 S [facility] Department of Radiology [address] [place] [id number] ======== Patient Name: MICHELLE BE : [...] Electronically signed by:Debra Del Cid. Transcribed by: [email or web address], User Resident: Electronically Signed by: DEBRA DEL CID @ 02/08/2019 11:16 AM Normal [facility] Comment on above: Order Comment: , Mabel ws (X-RAY, KNEE): Radiologic Protocol , Weight Bearing?: N , With or Without Brace/Cast/Collar: With , Views (X-RAY, KNEE): Radiologic Protocol , Weight Bearing?: N , With or Without Brace/Cast/Collar: With , , , Ordering Provider - AHSAN BINGHAM PA-C , KNEE RIGHT 1 OR 2 VWSon KNEE RIGHT 1 OR 2 VWS [facility] Department of Radiology [address] [place] [phone] ======== Patient Name: MICHELLE BE : [...] complications. Electronically signed by:Tomasz Stoll. Transcribed by: [email or web address], User Resident: Electronically Signed by: TOMASZ STOLL @ 12/07/2018 11:14 AM Normal [facility] Comment on above: Order Comment: , Vie ws (X-RAY, KNEE): Radiologic Protocol , Weight Bearing?: N , With or Without Brace/Cast/Collar: With , Views (X-RAY, KNEE): Radiologic Protocol , Weight Bearing?: N , With or Without Brace/Cast/Collar: With , , , Ordering Provider - AHSAN BINGHAM PA-C , KNEE RIGHT 1 OR 2 [facility] KNEE RIGHT 1 OR 2 [facility] Department of Radiology [address] [place] [phone] ======== Patient Name: MICHELLE BE : [...] ======== KNEE RIGHT 1 OR 2 S 10/06/2018 1:46 PM EDT SIGNS AND SYMPTOMS: [...] osteoarthritis Electronically signed by:Anup Ellison. Transcribed by: [email or web address], User Resident: Electronically Signed by: ANUP ELLISON @ 10/06/2018 02:48 PM Normal [facility] Comment on above: Order Comment: , Vie ws (X-RAY, KNEE): Radiologic Protocol , Weight Bearing?: N , With or Without Brace/Cast/Collar: With , Views (X-RAY, KNEE): Radiologic Protocol , Weight Bearing?: N , With or Without Brace/Cast/Collar: With , , , Ordering Provider - AHSAN BINGHAM PA-C , KNEE RIGHT 1 OR 2 [facility] 08-05 KNEE RIGHT 1 OR 2 [facility] Department of Radiology [address] [place] [phone] ======== Patient Name: MICHELLE BE : [...] effusion Electronically signed by:Anup Ellison. Transcribed by: [email or web address], User Resident: Electronically Signed by: ANUP ELLISON @ 08/26/2018 04:56 PM Normal [facility] Comment on above: Order Comment: , Vie ws (X-RAY, KNEE): Radiologic Protocol , Weight Bearing?: N , With or Without Brace/Cast/Collar: With , Views (X-RAY, KNEE): Radiologic Protocol , Weight Bearing?: N , With or Without Brace/Cast/Collar: With , , , Ordering Provider - AHSAN BINGHAM PA-C , KNEE RIGHT 1 OR 2 [facility] 07-06 KNEE RIGHT 1 OR 2 S [facility] Department of Radiology [address] [place] [phone] ======== Patient Name: MICHELLE BE : [...] , Exam: KNEE RIGHT 1 OR 2 [facility] ======== KNEE RIGHT 1 OR 2 S [...] compartment Electronically signed by:Anup Ellison. Transcribed by: [email or web address], User Resident: Electronically Signed by: ANUP ELLISON @ 07/29/2018 03:41 PM Normal [facility] Comment on above: Order Comment: , Vie ws (X-RAY, KNEE): Radiologic Protocol , Weight Bearing?: N , With or Without Brace/Cast/Collar: With , Views (X-RAY, KNEE): Radiologic Protocol , Weight Bearing?: N , With or Without Brace/Cast/Collar: With , , , Ordering Provider - AHSAN BINGHAM PA-C , KNEE RIGHT 3 [facility] 9 KNEE RIGHT 3 [facility] Department of Radiology [address] [place] [phone] ======== Patient Name: MICHELLE BE : 1960 Sex: F Age: Race: White Pt. Location: Patient Status: Ordered Date: 07/15/2018 8:45:00 AM Completed Date: 07/15/2018 08:47 AM Requesting Provider: AHSAN BINGHAM Attending Provider: Report Copy To: Signs & Symptoms: S82.001A Unsp fracture of right patella, init for clos fx I10 History: [place] Comments: , , , Ordering Provider - [...] knee Electronically signed by:Anup Ellison. Transcribed by: [email or web address], User Resident: Electronically Signed by: ANUP ELLISON @ 07/15/2018 03:31 PM Normal [facility] Comment on above: Order Comment: , Mabel ws (X-RAY, KNEE): Radiologic Protocol , Weight Bearing?: N , With or Without Brace/Cast/Collar: With , Views (X-RAY, KNEE): Radiologic Protocol , Weight Bearing?: N , With or Without Brace/Cast/Collar: With , , , Ordering Provider - AHSAN BINGHAM PA-C , Operative Reporton 9 Operative Report MR#: [id number] [facility] Pt. Name: Michelle Be Room #: [...] Duarte MD Date Trans: 07/03/2018 04:28 [place]terry [id number] [place] [facility] *ANAEROBIC CULTUREon 07-02-2 019 *ANAEROBIC CULTURE Clinical Report: (D) Specimen/Source: SWAB/RT KNEE Collected: 07/02/2018 13:53 Status: Final Last Updated: 07/07/2018 08:02 CULT RES (Final) No Anaerobes Isolated 5 Days Normal [facility] Comment on above: Performed By: #### 3 0312 #### [address] *WOUND CULTUREon 07-02-2018 *WOUND CULTURE Clinical Report: (D) Specimen/Source: WOUND/INTRAOP SPEC Collected: 07/02/2018 13:53 Status: Final Last Updated: 07/07/2018 10:13 (1) #1 RT KNEE GRAM (Final) Rare Polys No Bacteria Seen CULT RES (Final) No Growth Day 5 Normal [facility] Comment on above: Order Comment: #1 RT KNEE Performed By: #### 3 0343 #### [address] KNEE RIGHT 1 OR 2 Son 06-05 KNEE RIGHT 1 OR 2 [facility] Department of Radiology [address] [place] [phone] ======== Patient Name: MICHELLE BE : [...] PATELLA Exam: KNEE RIGHT 1 OR 2 S [...] Electronically signed by:Debra Del Cid. Transcribed by: [email or web address], User Resident: Electronically Signed by: DEBRA DEL CID @ 07/02/2018 02:03 PM Normal [facility] Comment on above: Order Comment: ORIF VS PERCUTANEOUS FIXATION RIGHT PATELLA POC GLUCOSE LABon 07-02-2018 Glucose [Mass/Vol] 108 mg/dL High 70-100 [facility] Comment on above: Performed By: #### 8 5499 #### [place] [address] [place] [address], [facility] APTTon 06-30-2018 aPTT Coag (Bld) [Time] 30.6 s Normal 25.0-35.0 [facility] Comment on above: Result Comment: ALL [...] THIS PURPOSE. Performed By: #### 5 6101, [address]29[address] #### [place] [address] [place] [address], [facility] BASIC METABOLIC PANELon 06-05 Calcium [Mass/Vol] 9.7 mg/dL Normal 8.6-10.3 [facility] Comment on above: Performed By: #### 0 0071 #### [place] [address] [address], [facility] Chloride [Moles/Vol] 102 mmol/L Normal 98-107 [facility] Comment on above: Performed By: #### 0 0071 #### [place] [address] [place] [address], [facility] CO2 [Moles/Vol] 28 mmol/L Normal 21-31 [facility] Comment on above: Performed By: #### 0 0071 #### [place] [address] [place] [id number], [facility] Creatinine [Mass/Vol] 1.20 mg/dL Normal 0.60-1.20 [facility] Comment on above: Performed By: #### 0 0071 #### [place] [address] [place] [address], [facility] GFR/1.73 sq M predicted among blacks MDRD (S/P/Bld) [Vol rate/Area] 56 ml/min/1.73sq m Abnormal >60 [facility] Comment on above: Performed By: #### 0 0071 #### [place] [address] [place] [address], [facility] GFR/1.73 sq M predicted among non-blacks MDRD (S/P/Bld) [Vol rate/Area] 47 ml/min/1.73sq m Abnormal >60 [facility] Comment on above: Performed By: #### 0 0071 #### [place] [address] [place] [address], [facility] Glucose [Mass/Vol] 97 mg/dL Normal 70-100 [facility] Comment on above: Performed By: #### 0 0071 #### [place] [address] [place] [address], [facility] Potassium [Moles/Vol] 4.1 mmol/L Normal 3.5-5.1 [facility] Comment on above: Performed By: #### 0 0071 #### [place] [address] Sodium [Moles/Vol] 137 mmol/L Normal 136-145 [facility] Comment on above: Performed By: #### 0 0071 #### [place] [address] Urea nitrogen [Mass/Vol] 19 mg/dL Normal 7-25 [facility] Comment on above: Performed By: #### 0 0071 #### [place] [address] CBC W/DIFFon 06-30-2018 ABS BASOPHILS 0.1 10*3/uL Normal 0.0-0.2 [facility] Comment on above: Performed By: #### 5 0103 #### [place] [address] ABS IMM GRANS 0.0 10*3/uL Normal 0.0-0.2 [facility] Comment on above: Performed By: #### 5 102 #### [place] [address] ABS NEUTROPHILS 6.4 10*3/uL Normal 1.6-7.6 [facility] Comment on above: Performed By: #### 5 102 #### [place] [address] Basophils/100 WBC (Bld) 0.7 % Normal 0.0-1.0 [facility] Comment on above: Performed By: #### 5 102 #### [place] [address] Eosinophils (Bld) [#/Vol] 0.2 10*3/uL Normal 0.0-0.5 [facility] Comment on above: Performed By: #### 5 102 #### [address] [place] [address], [facility] Eosinophils/100 WBC (Bld) 1.5 % Normal 0.0-6.0 [facility] Comment on above: Performed By: #### 5 0103 #### [place] [address] [facility]. [address] Erythrocyte distribution width (RBC) [Ratio] 14.4 % Normal 11.5-15.0 [facility] Comment on above: Performed By: #### 5 0103 #### [place] [address] [facility] [address] Hematocrit (Bld) [Volume fraction] 40.6 % Normal 36.0-45.0 [facility] Comment on above: Performed By: #### 5 0103 #### [place] [address] [facility] [address] Hemoglobin (Bld) [Mass/Vol] 13.3 g/dL Normal 12.0-15.0 [facility] Comment on above: Performed By: #### 5 0103 #### [place] [address] [facility]. [address] IMMATURE GRANS 0.4 % Normal 0.0-1.0 [facility] Comment on above: Performed By: #### 5 0103 #### [place] [address] [facility] [place] [address], [facility] Lymphocytes (Bld) [#/Vol] 2.6 10*3/uL Normal 1.2-4.0 [facility] Comment on above: Performed By: #### 5 0103 #### [place] [address] [facility] [place] [address], [facility] Lymphocytes/100 WBC (Bld) 26.5 % Normal 20.0-45.0 [facility] Comment on above: Performed By: #### 5 3 #### [place] [address] [place] [address], [facility] MCH (RBC) [Entitic mass] 27.4 pg Normal 27.0-33.0 [facility] Comment on above: Performed By: #### 5 0103 #### [address] [place] [address], [facility] MCHC (RBC) [Mass/Vol] 32.8 g/dL Normal 32.0-35.0 [facility] Comment on above: Performed By: #### 3 #### [address] [place] [address], [facility] MCV (RBC) [Entitic vol] 83.5 fL Normal 82.0-98.0 [facility] Comment on above: Performed By: #### 102 #### [address] [place] [address], [facility] Monocytes (Bld) [#/Vol] 0.5 10*3/uL Normal 0.1-1.0 [facility] Comment on above: Performed By: #### 5 102 #### [place] [address] MONOS 5.0 % Normal 5.0-12.0 [facility] Comment on above: Performed By: #### 5 102 #### [place] [address] Neutrophils/100 WBC (Bld) 65.9 % Normal 40.0-72.0 [facility] Comment on above: Performed By: #### 102 #### [place] [place] [address], [facility] Nucleated RBC/100 WBC (Bld) [Ratio] 0 % Normal 0-0 [facility] Comment on above: Performed By: #### 102 #### [place] [address] [facility] [place] [address], [facility] PLAT CNT 290 10*3/uL Normal 150-400 [facility] Comment on above: Performed By: #### 5 0103 #### [place] [address] [facility] [place] [address], [facility] RBC (Bld) [#/Vol] 4.86 10*6/uL Normal 3.80-5.00 [facility] Comment on above: Performed By: #### 5 0103 #### [address] [place] [address], [facility] WBC (Bld) [#/Vol] 9.68 10*3/uL Normal 4.00-10.60 [facility] Comment on above: Performed By: #### 5 0103 #### [address] [place] [address], [facility] KNEE RIGHT 1 OR 2 VWSon 06-05 KNEE RIGHT 1 OR 2 S [facility] Department of Radiology [address] [place] [phone] ======== Patient Name: MICHELLE BE : [...] Electronically signed by:Debra Del Cid. Transcribed by: [email or web address], User Resident: Electronically Signed by: DEBRA DEL CID @ 06/30/2018 11:52 AM Normal [facility] Comment on above: Order Comment: , Mabel ws (X-RAY, KNEE): Radiologic Protocol , Weight Bearing?: N , With or Without Brace/Cast/Collar: With , Views (X-RAY, KNEE): Radiologic Protocol , Weight Bearing?: N , With or Without Brace/Cast/Collar: With , , , Ordering Provider - AHSAN BINGHAM PA-C , PROTHROMBIN TIMEon 9 INR Coag (PPP) [Relative time] 0.98 {INR} Normal 0.91-1.16 [facility] Comment on above: Result Comment: ACCC [...] CHEST 1995;108:231S-246S. Performed By: #### 5 6101, [id number] #### [address] PT Coag (PPP) [Time] 13.0 s Normal 12.3-14.8 [facility] Comment on above: Result Comment: ALL RESULTS MUST BE INTERPRETED WITH RESPECT TO BLOOD DRAWING ARTIFACT OR DILUTION ERROR OF ANTICOAGULANT AT THE TIME OF SAMPLING. Performed By: #### 5 6101, [address] #### [address] KNEE RIGHT 3 [facility] 9 KNEE RIGHT 3 S [facility] Department of Radiology [address] [place] [phone] ======== Patient Name: MICHELLE BE : 1960 Sex: F Age: Race: White Pt. Location: 84 Patient Status: O Ordered Date: 06/15/2018 1:35:00 PM Completed Date: 06/15/2018 01:34 PM Requesting Provider: AMPARO ZHANG Attending Provider: AMPARO ZHANG Report Copy To: ADELAIDA CARRION Signs & Symptoms: M17.11 Unilateral primary osteoarthritis, right knee I10 History: [place] Comments: , Weight Bearing?: Y , Weight [...] effusion Electronically signed by:Anup Ellison. Transcribed by: [email or web address], User Resident: Electronically Signed by: ANUP Mcnair PATITO @ 06/15/2018 03:50 PM Normal [facility] Comment on above: Order Comment: , Isaiah ght Bearing?: Y , Weight Bearing?: Y , , , Ordering Provider - AMPARO ZHANG PA-C , Vital Signs Date Time Vital Sign Value Performing Clinician Facility 05-18-2023 16:30-0500 Body height 162.6 cm Adelaida Aichholz [employer] Work Phone: [facility] 05-18-2023 16:30-0500 Body mass index (BMI) [Ratio] 47.89 kg/m2 Adelaida Aichholz [employer] Work Phone: [facility] 05-18-2023 16:30-0500 Body temperature 97.3 [degF] Adelaida Aichholz [employer] Work Phone: [facility] 05-18-2023 16:30-0500 Body weight 126.55 kg Adelaida Aichholz [employer] Work Phone: [facility] 05-18-2023 16:30-0500 Diastolic blood pressure 80 mm[Hg] Adelaida Aichholz [employer] Work Phone: [facility] 05-18-2023 16:30-0500 Heart rate 76 /min Adelaida Aichholz [employer] Work Phone: [facility] 05-18-2023 16:30-0500 Respiratory rate 19 /min Adelaida Aichholz [employer] Work Phone: [facility] 05-18-2023 16:30-0500 SaO2% (BldA) [Mass fraction] 97 % Adelaida Aichholz [employer] Work Phone: [facility] 05-18-2023 16:30-0500 Systolic blood pressure 134 mm[Hg] Adelaida Aichholz [employer] EX[employer] Work Phone: [facility] 03-23-2023 12:10-0500 Diastolic blood pressure 98 mm[Hg] Adelaida Aichholz Work Phone: [facility] 03-23-2023 12:10-0500 Heart rate 76 /min Adelaida Aichholz Work Phone: [facility] 03-23-2023 12:10-0500 Respiratory rate 18 /min Adelaida Aichholz Work Phone: [facility] 03-23-2023 12:10-0500 SaO2% (BldA) [Mass fraction] 99 % Adelaida Yinghholz Work Phone: [facility] 03-23-2023 12:10-0500 Systolic blood pressure 162 mm[Hg] Adelaida Aichholz Work Phone: [facility] 03-23-2023 10:53-0500 Body height 162.56 cm Adelaida Yinghholz Work Phone: [facility] 03-23-2023 10:53-0500 Body weight 125.64 kg Adelaida Sousaholz Work Phone: [facility] 12-19-2022 14:55-0400 Body height 162.56 cm Rosemary Marita Other [employer] Other 12-19-2022 14:55-0400 Body mass index (BMI) [Ratio] 47.85 kg/m2 Rosemary Kirkland Other [employer] Other 12-19-2022 14:55-0400 Body temperature 97.8 [degF] Rosemary Kirkland Other [employer] Other 12-19-2022 14:55-0400 Body weight 126.46 kg Rosemary Kirkland Other [employer] Other 12-19-2022 14:55-0400 Respiratory rate 20 /min Rosemary Kirkland Other [facility] [employer] Other 12-19-2022 14:55-0400 SaO2% (BldA) [Mass fraction] 95 % Rosemary Marita Other [employer] [facility] [employer] Other 11-20-2022 13:12-0400 Body temperature 97.7 [degF] Adelaida Aichholz Work Phone: [facility] 11-20-2022 13:12-0400 SaO2% (BldA) [Mass fraction] 96 % Adelaida Aichholz Work Phone: [facility] 11-20-2022 07:44-0400 Diastolic blood pressure 90 mm[Hg] Adelaida Aichholz Work Phone: [facility] 11-20-2022 07:44-0400 Heart rate 103 /min Adelaida Aichholz Work Phone: [facility] 11-20-2022 07:44-0400 Systolic blood pressure 152 mm[Hg] Adelaida Aichholz Work Phone: [facility] 11-19-2022 20:00-0400 Respiratory rate 18 /min Adelaida Aichholz Work Phone: [facility] 11-18-2022 15:18-0400 Body height 162.56 cm Adelaida Aichholz Work Phone: [facility] 11-17-2022 09:00-0400 Body weight 122.92 kg Adelaida Aichholz Work Phone: [facility] Encounters Encounter Date Encounter Type Care Provider Facility Start: 10-21-2023 End: 10-21-2023 ambulatory ADELAIDA AICHHOLZ Not Available Start: 10-14-2023 End: 10-14-2023 ambulatory SONAM WILLIAMSON Not Available Start: 10-05-2023 End: 10-05-2023 ambulatory ADELAIDA AICHHOLZ Not Available Start: 09-21-2023 End: 09-21-2023 ambulatory ADELAIDA AICHHOLZ Not Available Start: 08-20-2023 ambulatory Eduardo Acevedo acility:[facility] Start: 08-17-2023 End: 08-17-2023 ambulatory ADELAIDA AICHHOLZ Not Available Start: 07-23-2023 End: 07-23-2023 ambulatory ADELAIDA AICHHOLZ Not Available Start: 07-07-2023 End: 07-07-2023 ambulatory ADELAIDA AICHHOLZ Not Available Start: 06-29-2023 End: 06-30-2023 ambulatory Syeda Mancuso MD Facility:[facility] Start: 05-22-2023 End: 05-22-2023 ambulatory ASHLEIGH HINES Not Available Start: 05-21-2023 Refill Adelaida Kelsiez [employer] Work Phone: [facility] Comment on above: Acute cystitis with hematuria (Primary Dx) Start: 05-18-2023 End: 05-18-2023 Office outpatient visit 25 minutes Adelaida Kelsiez [employer] Work Phone: [facility] Comment on above: Encounter for annual wellness visit (AWV) in Medicare patient (Primary Dx); OSMANY (obstructive sleep apnea); Chronic pain disorder; Gastroesophageal reflux disease, unspecified whether esophagitis present; Overactive bladder; Lower extremity edema; Pre-diabetes; Morbid obesity ([facility]); Yeast infection of the skin; Tobacco dependence; Mood disorder ([facility]); Primary hypertension ([facility]); Left hip pain; Open wound of anterior abdominal wall, initial encounter Start: 05-18-2023 End: 05-18-2023 ambulatory ADELAIDA AICHHOLZ Not Available Start: 05-18-2023 Bamboo flowsheet Adelaida Carrion [employer] Work Phone: [facility] Start: 05-18-2023 Bamboo flowsheet Adelaida Sheyla [employer] Work Phone: [facility] Start: 05-18-2023 End: 05-18-2023 Patient encounter procedure Adelaida Aichholz [employer] EXPERT Work Phone: [facility] Start: 03-25-2023 End: 03-25-2023 ambulatory ADELAIDA CARRION Not Available Start: 03-23-2023 End: 03-23-2023 Admission to same day surgery center Adelaida Carrion Work Phone: [facility] Work Phone: Start: 03-23-2023 End: 03-23-2023 ambulatory Adelaida Carrion Work Phone: [facility] Work Phone: Start: 03-11-2023 End: 03-11-2023 ambulatory KALLI INTERIANO Not Available Start: 02-20-2023 End: 02-20-2023 ambulatory ASHLEIGH HINES Not Available Start: 02-12-2023 End: 02-12-2023 ambulatory Jace Graham Other [employer] Other Start: 02-12-2023 Telephone encounter Jace CORADO G Customer Success Director Start: 12-19-2022 End: 12-19-2022 ambulatory Rosemary Kirkland Other [place] [employer] Other Start: 12-19-2022 Office outpatient ne w 10 minutes Rosemary Kirkalnd [facility] José Miguel Start: 11-17-2022 End: 11-20-2022 Evaluation and management of inpatient Adelaida Carrion Work Phone: [facility] Work Phone: Start: 09-04-2022 ambulatory ARIAN JOHNSON . Facili ty:[facility] Start: 08-26-2022 ambulatory HERBERTH CRAMER . Facility:[facility] Start: 08-08-2022 End: 08-09-2022 ambulatory HOSPITAL EDUCATION COORDINATOR ADELAIDA YINGMarquesGERONIMOZ Facility:[facility] Start: 07-25-2022 End: 07-26-2022 ambulatory HOSPITAL EDUCATION COORDINATOR ADELAIDAMonse CARRION Facility:[facility] Start: 07-15-2022 End: 07-15-2022 [...] 07-02-2018 End: 07-03-2018 Patient encounter procedure SUKI EBRAHEIM Facility:[facility] Procedures Date Procedure Procedure Detail Performing Clinician Start: 03-23-2023 Screening colonoscopy L oneal Sheyla Work Phone: Start: 03-23-2023 Colonoscopy Adelaida Jayden ramos TARIFF EXPERT Work Phone: Start: 09-15-2022 Mammography Adelaida ramos [employer]AR[employer] EXPERT Work Phone: Start: 08-28-2022 Microscopic observat ion [Identifier] in Cervix by Cyto stain Adelaida Carrion TARIFF EXPERT Work Phone: Start: 07-02-2018 [facility] CHAPARRITA HENDRICKS Start: 07-02-2018 REMOVAL OF SUPPORT IMPLANT SUKI EBRAHEIM Start: 07-02-2018 TREAT KNEECAP FRACTURE SUKI EBRAHEIM Plan of Treatment Date Care Activity Detail Author Start: 03-23-2033 Screening for malignant neoplasm of colon [facility] Start: 08-28-2025 Screening for malignant neoplasm of cervix [facility] Start: 05-18-2024 Medicare Annual Wellness (AWV) Medicare Annual Wellness (AWV) [facility] Start: 09-16-2023 Screening for malignant neoplasm of breast Mammogram [facility] Start: 08-17-2023 End: 08-17-2023 Patient encounter procedure 08/17/2023 9:20 AM EDT [facility] [address] [place] [address] Adelaida Carrion NP [address] [place] [address] [facility] Start: 05-22-2023 End: 05-22-2023 Patient encounter procedure 05/22/2023 8:45 AM EST Office Visit [facility] [address] [facility] [address] [place] [address] Ashleigh Hines PA [address] [place] [address] [facility] Start: 05-18-2023 End: 05-18-2023 Patient encounter procedure 05/18/2023 4:30 PM EST Office Visit [facility] [address] [place] [phone] Adelaida Carrion NP [address] [place] [address] Arrived [facility] Comment on above: Arrived Start: 05-18-2023 End: 05-18-2024 XR Hip - left 3 Views XR hip left 2 or 3 views Imaging Routine Left hip pain Expected: 05/18/2023 (Approximate), Expires: 05/18/2024 [facility] Work Phone: Comment on above: Expected: 05/18/2023 (Approximate), Expires: 05/18/2024 Start: 03-23-2023 [facility] Start: 11-20-2022 [facility] Start: 11-18-2022 Referral to clinical intake counselor [facility] Start: 11-17-2022 Hospital admission [facility] Start: 11-17-2022 [facility] Start: 12-06-1991 Screening for malignant neoplasm of cervix HPV/Cotest [facility] Start: 1960 Medicare Annual Wellness (AWV) Medicare Annual Wellness (AWV) [facility] Start: 1960 Screening for malignant neoplasm of colon [facility] Patient Education [facility] Work Phone: Patient referral [facility] Work Phone: [facility] Immunizations Immunization Date Immunization Notes Care Provider Fa cili 02-13-2023 influenza, injectabl e, quadrivalent, preservative free Adelaida Carrion TARIFF EXPERT Work Phone: [facility] 02-13-2023 SARS-COV-2 (COVID-19 ) vaccine, mRNA, spike protein, LNP, PF, 50 mcg/0.5 mL Adelaida Carrion TARIFF EXPERT Work Phone: [facility] 02-19-2022 diphtheria, tetanus toxoids and pertussis vaccine Adelaida Carrion TARIFF EXPERT Work Phone: [facility] 03-02-2021 Moderna SARS-CoV-2 Vaccination Adelaida Carrion TAR[employer] EXPERT Work Phone: [facility] 08-24-2020 Moderna SARS-CoV-2 Vaccination Adelaidamonse Carrion TARIFF EXPERT Work Phone: [facility] 07-27-2020 Moderna SARS-CoV-2 Vaccination Adelaidamonse Carrion [employer]ARIFF EXPERT Work Phone: [facility] 05-28-2018 influenza, injectabl e, quadrivalent, preservative free Adelaida Carrion Work Phone: [facility] Payers Date Payer Category Payer Medicare [id number] 2022 Private Health Insurance [id number] 2022 Self-pay [id number] 2022 Medicare [id number] 2008 Unknown [id number] 1961 Unknown [id number] 2.16.8 40.1.902110.3.579.2.647 1961 Unknown [id number] 2.16.84 0.1.285335.3.579.2.593 1961 Unknown [id number] 2.16.84 0.1.046383.3.579.2.593 1961 Unknown [id number] 2.16.84 0.1.436360.3.579.2.593 1961 Unknown [id number] 2.16.84 0.1.369255.3.579.2.593 1961 Unknown [id number] 2.16.84 0.1.019227.3.579.2.593 1961 Unknown [id number] 2.16.84 0.1.962042.3.579.2.593 1961 Unknown [id number] 2.16.84 0.1.524635.3.579.2.593 1961 Unknown [id number] 2.16.84 0.1.738043.3.579.2.593 1961 Unknown [id number] 2.16.84 0.1.862320.3.579.2.593 1961 Unknown [id number] 2.16.84 0.1.984329.3.579.2.593 1961 Unknown [id number] 2.16.84 0.1.100129.3.579.2.593 1961 Unknown [id number] 2.16.84 0.1.563745.3.579.2.593 1961 Unknown [id number] 2.16.84 0.1.830323.3.579.2.593 1961 Unknown [id number] 2.16.84 0.1.109928.3.579.2.593 1961 Unknown [id number] 2.16.84 0.1.483213.3.579.2.593 1961 Unknown [id number] 2.16.84 0.1.130480.3.579.2.593 1961 Unknown [id number] 2.16.84 0.1.248854.3.579.2.593 1961 Unknown [id number] 2.16.84 0.1.481613.3.579.2.593 1961 Unknown [id number] 2.16.84 0.1.929164.3.579.2.593 1961 Unknown [id number] 2.16.84 0.1.804333.3.579.2.593 1961 Unknown [id number] 2.16.84 0.1.723464.3.579.2.593 1961 Unknown [id number] 2.16.84 0.1.403105.3.579.2.593 1961 Unknown [id number] 2.16.84 0.1.789034.3.579.2.593 1961 Unknown [id number] 2.16.84 0.1.525148.3.579.2.593 1961 Unknown [id number] 2.16. 840.1.957962.3.579.2.196 1961 Unknown [id number] 2.16.84 0.1.296830.3.579.2.1259 1961 Unknown [id number] 2.16.84 0.1.705047.3.579.2.1259 1961 Unknown [id number] 2.16.84 0.1.355451.3.579.2.1259 1961 Unknown [id number] 2.16.84 0.1.212627.3.579.2.1259 1961 Unknown [id number] 2.16.84 0.1.964380.3.579.2.1259 1961 Unknown [id number] 2.16.84 0.1.635763.3.579.2.1259 1961 Unknown [id number] 2.16.84 0.1.694798.3.579.2.1259 1961 Unknown [id number] 2.16.84 0.1.941469.3.579.2.1259 1961 Unknown [id number] 2.16.84 0.1.431565.3.579.2.1259 1961 Unknown [id number] 2.16.840 .1.394341.3.579.2.1259 1961 Unknown [id number] 2.16.840 .1.451289.3.579.2.1259 1961 Unknown [id number] 2.16.840 .1.565270.3.579.2.1259 1959 Medicare [id number] 1959 Unknown [id number] Unknown [id number] 2.16.8 40.1.503193.3.579.2.531 Unknown [id number] 2.16.8 40.1.808276.3.579.2.531 Unknown [id number] 2.16.8 40.1.991479.3.579.2.531 Social History Date Type Detail Facility Start: 11-18-2022 End: 02-09-2023 Tobacco smoking status NHIS Ex-smoker (finding) [facility] Start: 1960 Sex Assigned At Female [facility] Start: 03-25-2023 End: 05-18-2023 Sex Assigned At [facility] End: 04-06-2016 History of tobacco use Current smoker [facility] End: 04-06-2016 History of tobacco use Cigarette Smoker [facility] Start: 02-09-2023 End: 05-18-2023 Cigarettes smoked current (pack per day) - Reported 1 [facility] Start: 02-09-2023 Tobacco use and exposure Smokeless tobacco non-user [facility] Start: 05-18-2023 Alcohol intake Lifetime non-drinker [...] Facility 11-20-2022 Functional status Patient at [facility] Work Phone: Mental Status Date Assessment Result Facility 11-20-2022 Cognitive function Cognitive Sta tus Patient is Progressing Toward Baseline [facility] Work Phone: Clinical Notes 10-03-2021 to 05-18-2023 Adelaida Carrion NP - 05/18/2023 5:49 PM ESTAdelaida Carrion, BRIANA - 05/18/2023 5:47 PM ESTAdelaida Carrion, TARIFF EXPERT - 05/18/2023 5:20 PM ESTAdelaida Carrion, BRIANA [...] (BARIATRIC MULTIVITAMINS/IRON PO) Bariatric Multivitamins/Iron nystatin (Mycostatin) 231299 UNIT/GM powder 1 application , Topical, 2 [...] Anxiety 05/18/2023 Bipolar disorder with severe depression ([facility]) 05/18/2023 Brain vascular malformation Chronic pain disorder Colon polyps Constipation Degenerative cervical disc Degenerative lumbar disc Depression ([facility]) 05/18/2023 Diastolic dysfunction Dizziness 05/18/2023 Dysphagia Fibromyalgia Gastrocnemius equinus GERD (gastroesophageal reflux disease) Heart murmur Hematoma of right breast Hemiparesis, right ([facility]) Hemorrhoid int/external hemorrhoids Hiatal hernia Iron deficiency Left foot pain 03/25/2023 Lower extremity edema Mood disorder ([facility]) mixed mood disorder OSMANY (obstructive sleep apnea) Osteoporosis ([facility]) Overactive bladder Pre-diabetes Primary hypertension ([facility]) 03/25/2023 PTSD (post-traumatic stress disorder) ([facility]) Restless leg Right knee pain Right sided weakness S/P bariatric surgery Shingles Slurred speech Stroke ([facility]) 2018 Tenosynovitis, de Quervain Thoracic [...] bladder Lower extremity edema Pre-diabetes Mood disorder ([facility]) Continue with Psych for management Tobacco dependence Yeast infection of the skin Encounter for annual wellness visit (AWV) in Medicare patient Reviewed Ht/Wt/BMI Recommend eye exam yearly Recommend dental exams twice a year Balance work/leisure activities Exercises is recommended most days of the week (appropriate as chronic conditions allow) Follow up yearly and prn documented in this encounter [facility] 03-23-2023 Procedure note [facility] 12-19-2022 Evaluation note Encounter Date Diagnosis Assessment Notes Dec, Skin candidiasis (ICD-10 - B37.2) Drink plenty fluids, get plenty of rest. Continue home medications as prescribed. Take the Diflucan as prescribed until gone. Follow-up with your family physician if no improvement in 2 to 3 days [facility] Other 08-17-2023 Discharge summary Author Eduardo bautista [facility] November 20, 2022 6:38am Note Date/Time November 20, 2022 6: 38am [facility] [address] [place] [address] Discharge Summary Signed Patient: Michelle Be MR#: [id number] : 1960 Acct:[id number] Age/Sex: 61 / F Adm Date: 3 Loc: Room: [address] [place] [address]: Gaudencio Monk MD Copies to: MD Adelaida Álvarez NP-C~ Providers Date of Discharge: 11/20/22 Discharging Provider: [...] at that time.? She reports moving to [place] from [place] in 2011 and was then diagnosed with bipolar disorder at [facility] in [place], where she still follows with a therapist.? Shereports that she has been with 7 therapists in the last 9 years and is currentlycompleting EMDR with her current therapist. Past hospitalizations: Her most recent hospitalization was 5 years ago [facility] in [place] for the same feeling she is experiencing [...] worked since 2010 due to her fibromyalgia.? [facility]. 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 (insert date/time here) Intake: (Insert date/time here) Please bring a copy of your photo ID, insurance card, and proof of household income.? Psychiatry: (Insert date/time here) Group: (Insert date/time here ) ) Adelaida Carrion [Primary Care Provider] - (Please contact for any medical needs) Documented By: Eduardo Monk MD 3 [id number] Signed By: <Electronically signed by Eduardo Monk MD> 11/20/22 0638 [facility] Work Phone: 1(451) 327-118608-16-2023 Progress note Author Eduardo bautista [facility] November 19, 2022 6:25am Note Date/Time November 19, 2022 6: 25am [facility] [address] [place] [address] Psychiatry Progress Note Signed Patient: Michelle Be MR#: [id number] : 1960 Acct:[id number] Age/Sex: 61 / F Adm Date: 3 Loc: Room: [address] [place] [address] Type : ADM IN Attending Dr: Gaudencio [...] <Electronically signed by Eduardo Monk MD> 11/19/22 06 [facility] Work Phone: 1(449) 473-592008-15-2023 Progress note Author Eduardo bautista [facility] November 18, 2022 11:01am Note Date/Time November 18, 2022 10 :11am [facility] [address] [place] [address] Psychiatry Progress Note Signed Patient: Michelle Be MR#: [id number] : 1960 Acct:[id number] Age/Sex: 61 / F Adm Date: 3 Loc: Room: [address] [place] [address] Type : ADM IN Attending Dr: Gaudencio [...] by requesting a schedule 2 referring to [place] for pain management specifically every 4-6 hours [...] signed by MD DA Rangel> 11/18/22 1011 [facility] Work Phone: 1(748) 432-215808-14-2023 History and physical note Author Eduardo bautista [facility] November 17, 2022 12:48pm Note Date/Time November 17, 2022 12 :48pm [facility] [address] [place] [address] Psychiatry H&P Signed Patient: Michelle Be MR#: [id number] : 1960 Acct:[id number] Age/Sex: 61 / F Adm Date: 3 Loc: Room: [address] [place] [address] Type: ADM IN Attending Dr: Gaudencio Monk [...] at that time. She reports moving to [place] from [place] in 2011 and was then diagnosed with bipolar disorder at [facility] in [place], where she still follows with a therapist. Shereports that she has been with 7 therapists in the last 9 years and is currentlycompleting EMDR with her current therapist. Past hospitalizations: Her most recent hospitalization was 5 years ago [facility] in [place] for the same feeling she is experiencing [...] 2010 due to her fibromyalgia. [facility]. Relationships: Reports having [...] equal bilaterally. CN XII: Tongue protrusion midline [facility] Medical History (Updated 11/17/22 @ 10:42 by [...] signed by Eduardo Monk MD> 11/17/22 1248 [facility] Work Phone: 1(353) 340-599803-23-2023 NoteCONSULTATION CONSULTATION DATE: 06/26/2022 To: Nurse Carrion [...] L5-S1 facet joint injection under fluoroscopic guidance.[facility] [id number] NotePROCEDURE: XR SHOULDER RT 2V or > [...] Electronically authenticated by: KINGSLEY CLEMENTS Date: 2022-05-09 09:21[facility]01-23-2023 NotePROCEDURE: XR WRIST LT MIN 3 [...] Electronically authenticated by: KINGSLEY CLEMENTS Date: 2022-04-28 13:31[facility]12-29-2022 NoteCONSULTATION CONSULTATION DATE: 04/03/2022 HISTORY OF [...] her in three months, unless otherwise indicated.[facility] [id number] NoteCONSULTATION CONSULTATION DATE: 01/02/2022 This is a [...] Macedo to [facility] in [place] for the compounded cream. She needs a [...] in three months' time unless otherwise indicated.[facility] [id number] NotePROCEDURE: XR ANKLE RT MIN 3 VIEWS, [...] Electronically authenticated by: KINGSLEY CLEMENTS Date: 2022-01-01 13:11[facility]09-28-2022 NotePROCEDURE: XR ANKLE RT MIN 3 [...] Electronically authenticated by: KINGSLEY CLEMENTS Date: 2022-01-01 13:11[facility]08-18-2022 NotePROCEDURE: XR FOOT RT MIN 3 VIEWS HISTORY: Pain in right foot , chronic COMPARISON: XR foot right 2020 FINDINGS: BONES:No fracture, dislocation, bone lesion. Small calcaneal degenerative enthesophytes. SOFT TISSUES:No visible soft tissue swelling. EFFUSION:None visible. OTHER: Negative. IMPRESSION: 1. No acute bone abnormality or significant degenerative joint disease. Electronically authenticated by: KINGSLEY CLEMENTS Date: 2021-11-21 16:13[facility]06-30-2022 NoteCONSULTATION CONSULTATION DATE: 10/03/2021 This is [...] patient agrees with the plan of care. [facility] Signed and Approved by: ZELDA MCDANIEL . 10/10/2021 10:22:00[facility] Diagnosis Onset Date Resolution Status Allergies acute Bipolar 2 disorder acute Hypertension acute Morbid obesity with BMI of 45.0-49.9, adult acute OSMANY (obstructive sleep apnea) acute Restless legs syndrome acute [facility] Work Phone: Evaluation noteNo InformationNort [employer] Other Evaluation noteNo assessment information available [facility] Work Phone: Evaluation note* Diagnosis Encounter [...] HealthcareHistory and physical note Author Jace Graham [facility] March 23, 2023 11:21am Note Date/Time March 23, 2023 11:21am [facility] [address] [place] [address] Gastroenterology H&P Signed Patient: Michelle Be MR#: [id number] : 1960 Acct:[id number] Age/Sex: 62 / F Adm Date: 3 Loc: Room: Type: [facility] Attending Dr: Jace Graham MD [...] signed by Jace Graham MD> 03/23/23 1121 [facility] Work Phone: History general Narrative - [...] see above surg Hospitalization History stroke 2018 [facility] Other Hospital Discharge instructions Additional Instructions Regular Diet [facility] Work Phone: Hospital Discharge instructions Additional [...] NOT operate machinery such as power tools, [employer] mowers, snow Secure[employer], sewing machines, etc. for 24 hours. - [...] years. -Follow up with PCP. -Office number [phone].[facility] Work Phone: Summary Purpose Family History [...] and content) DATE CREATED AUTHOR 02/18/2019 [facility] DATE CREATED AUTHOR AUTHOR'S ORGANIZ ATION 11/15/2021 [facility] DATE CREATED AUTHOR AUTHOR'S ORGANIZ ATION 08/16/2022 [facility] DATE CREATED AUTHOR AUTHOR'S ORGANIZ ATION 08/11/2023 [facility] DATE CREATED AUTHOR AUTHOR'S ORGANIZ ATION 09/27/[address] [facility] DATE CREATED AUTHOR AUTHOR'S ORGANIZ ATION 10/25/2023 [facility] EPIC Care Teams (unrecognized sec [...] MD Other Provider Active Adelaida Marsh , RESEARCH AND DEVELOPMENT DIRECTOR Other Provider Active Jessica Murillo , Other [...] MD Other Provider Active Julio César Mckeon DO Other Provider Active Valentine Mak MD Other Provider Active Raymond Strong MD Other Provider Active Joellen Le , TARIFF EXPERT-C Other Provider Active Severo Yancey MD Other Provider Active Rao Webber MD Other Provider Active Yuan Shi MD Other Provider Active Delroy Ramirez MD Other Provider Active Berta Comer , DO Other Provider Active Negrito Ruiz , DO Other Provider Active Lacho Singh , DO Other Provider Active Rachana Hobson , RESEARCH AND DEVELOPMENT DIRECTOR Other Provider Active Rob Lake , DO Other Provider Active Jeff Alvarez MD Other Provider Active Urmila Rinaldi , RESEARCH AND DEVELOPMENT DIRECTOR Other Provider Active Bina Mayberry , RESEARCH AND DEVELOPMENT DIRECTOR Other Provider Active Mir Bradford MD Other Provider Active Te Da Silva MD Other Provider Active Debra Landaverde , JOHANN Other Provider Active Team Status: Inactive Member Role Status Dates Adelaida Carrion Primary Care Provider Active Jace Graham MD Attending Provider Active [employer] Repairer Relationship Specialty Start Date End Date José Luis Roberts MD [address] [place] [address] PCP - General Family Medicine 05/18/23 Adelaida Carrion NP [address] [place] [address] Referring Physician Nurse Practitioner 10/14/22 [employer] Repairer Relationship Specialty Start Date End Date José Luis Roberts MD [address] [place] [address] PCP - General Family Medicine 05/18/23 Adelaida Carrion NP [address] [place] [phone] Referring Physician Nurse Practitioner 10/14/22 [employer] Repairer Relationship Specialty Start Date End Date José Luis Roberts MD [address] [place] [address] PCP - General Family Medicine 05/18/23 Adelaida Carrion NP [address] [place] [address] Referring Physician Nurse Practitioner 10/14/22 REASON FOR [...] BE BASED ON THE PRIMARY CLINICAL RECORDS. [employer] [facility]. provides no warranty or guarantee of the accuracy or completeness of information in this document.
[2023-10-30 08:05] LABS: Anion Gap 13.6; BUN Creatinine Ratio 23.7; Carbon Dioxide 24.4 mmol/L (21.0-32.0); Chloride 105 mmol/L (98-107); Estimated GFR (African America >60 (>=60); Estimated GFR (Non-African Ame >60 (>=60); Glucose 109 mg/dL (74-106); Sodium 138 mmol/L (136-145)
[2023-10-30 09:02] LABS: Estimated Average Glucose 94 mg/dL; Glycohemoglobin A1C 4.9 % (4.5-6.2)
== END 2023-10-30 06:38 | disposition home or self-care (01) ==
LOC: LAB 06:39
PROVIDERS: PCP Nurse Practitioner; Visit Provider Nurse Practitioner
DX: R60.0 Localized edema (principal); R73.03 Prediabetes
CPT/HCPCS: 36415; 80048; 83036

== ENCOUNTER 2023-11-03 06:29 | Day surgery (SDC) | payer MEDICARE, SELFPAY ==
--- OUTSIDE RECORDS SUMMARY | 2023-11-03 06:32 | XMS_ITS | CCD ---
Author Organization [facility] Care Team Providers Care Buyer Agent Name Role Phone EBRAHEIM, SUKI Admitting Unavailable EBRAHEIM, SUKI Attending Unavailable AICHHOLZ, ADELAIDA Referring Unavailable AICHHOLZ, ADELAIDA Primary Care Unavailable [place] Procedure Practitioner Unavailab SUKI Jacob Surgeon Unavailable [place] Procedure Practitioner Unavailab CHAPARRITA Goncalves Surgeon Unavailable BRIDGETTE MACEDO Admitting Unavailable BRDIGETTE MACEDO Attending Unavailable AICHHOLZ, REQUIREMENTS ENGINEER ADELAIDA Primary Care Unavailable ZIMMER ., DR FINA Iverson Admitting Unavailable ZIMMER ., DR FINA Iverson Attending Unavailable AICHHOLZ, REQUIREMENTS ENGINEER ADELAIDA Primary Care Unavailable MCDANIEL ., ZELDA Consulting Unavailable LAKSHMIPATHY ., NARENDRANATH Consulting Paula vailable LAKSHMIPATHY ., NARENDRANATH Admitting Paula vailable LAKSHMIPATHY ., NARENDRANATH Attending Paula vailable AICHHOLZ, REQUIREMENTS ENGINEER ADELAIDA Primary Care Unavailable LAKSHMIPATHY ., NARENDRANATH Consulting Paula vailable AICHHOLZ, REQUIREMENTS ENGINEER ADELAIDA Primary Care Unavailable MARKER ., DR CHAUDHRY Admitting Unavailable MARKER ., DR CHAUDHRY Attending Unavailable MARKER ., DR CHAUDHRY Consulting Unavailable AICHHOLZ, REQUIREMENTS ENGINEER ADELAIDA Admitting Unavailable AICHHOLZ, REQUIREMENTS ENGINEER ADELAIDA Attending Unavailable AICHHOLZ, REQUIREMENTS ENGINEER ADELAIDA Primary Care Unavailable ZIMMER ., DR FINA Iverson Admitting Unavailable ZIMMER ., DR FINA Iverson Attending Unavailable AICHHOLZ, REQUIREMENTS ENGINEER ADELAIDA Primary Care Unavailable MCDANIEL ., ZELDA Consulting Unavailable ZIMMER ., DR FINA Iverson Admitting Unavailable ZIMMER ., DR FINA Iverson Attending Unavailable AICHHOLZ, REQUIREMENTS ENGINEER ADELAIDA Primary Care Unavailable MCDANIEL ., ZELDA Consulting Unavailable AICHHOLZ, REQUIREMENTS ENGINEER ADELAIDA Admitting Unavailable AICHHOLZ, REQUIREMENTS ENGINEER ADELAIDA Attending Unavailable AICHHOLZ, REQUIREMENTS ENGINEER ADELAIDA Primary Care Unavailable AICHHOLZ, REQUIREMENTS ENGINEER ADELAIDA Consulting Unavailable AICHHOLZ, REQUIREMENTS ENGINEER ADELAIDA Admitting Unavailable AICHHOLZ, REQUIREMENTS ENGINEER ADELAIDA Attending Unavailable AICHHOLZ, REQUIREMENTS ENGINEER ADELAIDA Primary Care Unavailable AICHHOLZ, REQUIREMENTS ENGINEER ADELAIDA Consulting Unavailable MISC, DR COTE Admitting Unavailable MISC, DR COTE Attending Unavailable AICHHOLZ, REQUIREMENTS ENGINEER ADELAIDA Primary Care Unavailable AICHHOLZ, REQUIREMENTS ENGINEER ADELAIDA Consulting Unavailable PRITESHC, DR COTE Consulting Unavailable STARR, DR KINGSLEY Atkins Consulting Unavailable ZIMMER ., DR FINA Iverson Admitting Unavailable ZIMMER ., DR FIAN Iverson Attending Unavailable AICHOLZ, REQUIREMENTS ENGINEER ADELAIDA Primary Care Unavailable MCDANIEL ., ZELDA Consulting Unavailable ZIMMER ., DR FINA Iverson Admitting Unavailable ZIMMER ., DR FINA Iverson Attending Unavailable AICHOLZ, REQUIREMENTS ENGINEER ADELAIDA Primary Care Unavailable ZIMMER ., DR FINA Iverson Consulting Unavailable OMID LAY Consulting Unavailable ZIMMER ., DR FINA Iverson Admitting Unavailable ZIMMER ., DR FINA Iverson Attending Unavailable AICHOLZ, REQUIREMENTS ENGINEER ADELAIDA Primary Care Unavailable MCDANIEL ., ZELDA Consulting Unavailable AICHOLZ, REQUIREMENTS ENGINEER ADELAIDA Primary Care Unavailable HALKER ., ARIAN Admitting Unavailable HALKER ., ARIAN Attending Unavailable LAKSHMIPATHY ., NARENDRANATH Consulting Paula vailable HALKER ., ARIAN Consulting Unavailable LAKSHMIPATHY ., NARENDRANATH Admitting Paula vailable LAKSHMIPATHY ., NARENDRANATH Attending Paula vailable AICHOLZ, REQUIREMENTS ENGINEER ADELAIDA Primary Care Unavailable LAKSHMIPATHY ., NARENDRANATH Consulting Paula vailable AICHHOLZ, REQUIREMENTS ENGINEER ADELAIDA Admitting Unavailable AICHHOLZ, REQUIREMENTS ENGINEER ADELAIDA Attending Unavailable AICHHOLZ, REQUIREMENTS ENGINEER ADELAIDA Primary Care Unavailable AICHHOLZ, REQUIREMENTS ENGINEER ADELAIDA Consulting Unavailable BRIDGETTE MACEDO Admitting Unavailable BRIDGETTE MACEDO Attending Unavailable AICHHOLZ, REQUIREMENTS ENGINEER ADELAIDA Primary Care Unavailable DR KINGSLEY CLEMENTS Consulting Unavailable BRIDGETTE MACEDO Consulting Unavailable PURA, GILMER Admitting Unavailable GILMER NEVES Attending Unavailable PURA, GILMER Consulting Unavailable AICHHOLZ, REQUIREMENTS ENGINEER ADELAIDA Primary Care Unavailable AICHHOLZ, REQUIREMENTS ENGINEER ADELAIDA Primary Care Unavailable DR WILLI RINALDI Admitting Unavailable DEEJAY, DR WILLI Atkins Attending Unavailable DR WILLI RINALDI Consulting Unavailable AICHHOLZ, REQUIREMENTS ENGINEER ADELAIDA Primary Care Unavailable ALMAZ ., DANNY Admitting Unavailable ALMAZ ., DANNY Attending Unavailable DR KINGSLEY CLEMENTS Consulting Unavailable ALMAZ ., DANNY Consulting Unavailable LAKSHMIPATHY ., NARENDRANATH Admitting Paula vailable LAKSHMIPATHY ., NARENDRANATH Attending Paula vailable AICHHOLZ, REQUIREMENTS ENGINEER ADELAIDA Primary Care Unavailable AICHHOLZ, REQUIREMENTS ENGINEER ADELAIDA Admitting Unavailable AICHHOLZ, REQUIREMENTS ENGINEER ADELAIDA Attending Unavailable AICHHOLZ, REQUIREMENTS ENGINEER ADELAIDA Primary Care Unavailable AICHHOLZ, REQUIREMENTS ENGINEER ADELAIDA Admitting Unavailable AICHHOLZ, REQUIREMENTS ENGINEER ADELAIDA Attending Unavailable AICHHOLZ, REQUIREMENTS ENGINEER ADELAIDA Primary Care Unavailable AICHHOLZ, REQUIREMENTS ENGINEER ADELAIDA Consulting Unavailable DR KINGSLEY CLEMENTS Consulting Unavailable HALKER ., ARIAN Admitting Unavailable HALKER ., ARIAN Attending Unavailable AICHHOLZ, REQUIREMENTS ENGINEER ADELAIDA Primary Care Unavailable Aichholz, Adelaida J Primary Care Provider MD Gaudencio Monk Admit Provider [phone] MD Gaudencio Monk Attending Provider [phone] JOHANN Vieira Other Provider Unavailable JOHANN Pina Other Provider Unavailable JOHANN Hurtado Other Provider Unavailable JOHANN Crooks Other Provider Unavailable JOHANN Mejias Other Provider Unavailable JOHANN Kim Other Provider Unavailable MD Walker Pringle Other Provider ROSS Marsh Other Provider DO Jessica Murillo Other Provider MD Obdulio Bragg Other Provider [phone] DO Joon Cristina Other Provider [phone] MD Torin Robert Other Provider MD Dawn Barrera Other Provider Karlene, ANP- Mari Other Provider MD Sofi Almanzar Other Provider MD Sharad Gallegos Other Provider MD bAy Cain Other Provider MD Hillary Carrera Other [...] José Luis Roberts MD Primary Care Provider [phone] aJmee JAIMES, Syeda King Attending Unavailable Eduardo Monk [...] adverse reactions (disorder) 04-06-19 14 rash [facility] (3 sources) levETIRAcetam; Translations: [KEPPRA] Drug Allergy 07-02-19 19 [facility] (3 sources) milnacipran; Translations: [SAVELLA] Drug Allergy 03-14-20 13 [facility] (1 source) Penicillin; Translations: [PENICILLIN] Drug Allergy 01-16-20 18 [facility] (5 sources) Prochlorperazin e; Translations: [COMPAZINE] Drug Allergy 03-14-20 13 agitation [facility] (12 sources) Tetracycline; Translations: [TETRACYCLINE] Drug Allergy 04-06-19 13 Hives, Unknown [facility] (4 sources) Penicillins Drug allergy (disorder) 04-06-19 13 Unknown Reaction [facility] (9 sources) levETIRAcetam; Translations: [levetiracetam] Drug Allergy 12-13-19 22 Hallucinations , Other [facility] (9 sources) milnacipran; Translations: [milnacipran] Drug Allergy 12-13-19 22 hives, Hallucinations , Other, Unknown [facility] (7 sources) Prochlorperazin e; Translations: [prochlorperazi ne] Drug Allergy 12-13-19 22 Unknown, [facility] (2 sources) Penicillin G Drug Allergy as a child [facility] Other (2 sources) Tetracaine Drug Allergy Unknown [facility] Other (4 sources) Penicillins Drug Intolerance 12-13-19 22 Anaphylaxis [facility] (4 sources) Other Propensity to adverse reactions 12-13-19 22 Other [facility] (4 sources) Wound Dressing Adhesive Drug Allergy 09-20-19 Rash, Unknown [facility] (1 source) Penicillin Drug Allergy 12-20-19 [facility] (1 source) Penicillins Drug allergy (disorder) 03-23-20 [facility] (1 source) Tetracaine Drug Allergy 12-20-19 [facility] Repository Medications Current Medications Medication [...] 23, 2023 12:00am take 2 tablets by [facility] once daily at bedtime Melatonin 10 MG 2 TABLETS Orally QHS Active Melatonin 12 MG tablet dispersible (4 sources) Melatonin 12 MG tablet dispersible 1 (one) time each day at the same time. 0 Active Multiple Vitamins-Minerals (BARIATRIC MULTIVITAMINS/IRON PO) (4 sources) Multiple Vitamins-Minerals (BARIATRIC MULTIVITAMINS/IRON PO) Bariatric Multivitamins/Iron 0 Active Zeepgnwjfoxs-Ubc-Obah-Fa- Vit K (Bariatric Multivitamins) 45 mg iron- 800 mcg-120 mcg Capsule (2 sources) Start: 11-17-2022 take 1 capsule by mouth once daily Dmdegmqsjlxw-Ket-Cxww-Fa -Vit K (Bariatric Multivitamins) 45 mg iron- 800 mcg-120 mcg Capsule Active 1 CAP PO Daily November 16, 2022 11:00pm Start: 11-17-2022 take 1 capsule by [facility] once daily Nfmvmriluqbd-Luf-Topo-Fa-Vit K (Bariatri c Multivitamins) 45 mg iron- 800 mcg-120 mcg Capsule Active 1 CAP PO Daily November 17, 2022 12:00am nystatin 100 unt/mg topical powder (4 sources) Polyene Antifungal nystatin (Myc ostatin) 221993 UNIT/GM powder Apply 1 application topically in the morning and 1 application before bedtime. 0 Active OLANZapine 5 mg oral tablet (6 sources) Atypical Antipsychotic Start: 3 take 5 mg by mouth every six hours Olanzapine Active 5 MG PO Q6H 30 15 November 17, 2022 11:00pm take 1 tablet by [facility] every six hours as needed OLANZapine [...] 02-20-2022 Episodic Other aftercare (1 source) Other [facility] (current) drug therapy; Translations: [OTH PENITENTIARY CURRENT [...] on 03-23-2023 Amphetamines Ql (U) Negative Negative [facility] Barbiturates [Presence] in U rine by Screen methodOrdered By: Jace Graham on 03-23-2023 Barbiturates Screen Ql (U) Negative Negative [facility] Benzodiazepines Screen Ql (U )Ordered By: Jace Graham on 03-23-2023 Benzodiazepines Ql (U) Negative Negative [facility] Benzoylecgonine [Presence] i n Urine by Screen methodOrdered By: Jace Graham on 03-23-2023 Benzoylecgonine Screen Ql (U) Negative Negative [facility] Cannabinoids [Presence] in U rine by Screen methodOrdered By: Jace Graham on 03-23-2023 Cannabinoids Screen Ql (U) Negative Negative [facility] Comment on above: These are unconfirme d results and should not be used for legal purposes. Drug Cut-Off Concentration: AMPH 1000 ng/mL ELKIN 200 ng/mL ATIYA 200 ng/mL COCM 300 ng/mL OP 300 ng/mL PCP 25 ng/mL THC 20 ng/mL Drug Screen,Urineon 03-23-20 Amphetamine Screen,Urine Negative Normal Negative [facility] Comment on above: Performed By: #### U RDS #### [address] Barbiturate Screen,Urine Negative Normal Negative [facility] Comment on above: Performed By: #### U RDS #### [place] [address] [place] Benzodiazepines Screen,Urine Negative Normal Negative [facility] Comment on above: Performed By: #### U RDS #### [address] Cannabinoid Screen,Urine Negative Normal Negative [facility] Comment on above: Result Comment: Thes e are unconfirmed results and should not be used for legal purposes. Drug Cut-Off Concentration: AMPH 1000 ng/mL ELKIN 200 ng/mL ATIYA 200 ng/mL COCM 300 ng/mL OP 300 ng/mL PCP 25 ng/mL THC 20 ng/mL PERFORMED BY: [place] [address] PATHOLOGIST STAFF DEVELOPMENT NURSE AN CURRY M.D. Performed By: #### U RDS #### [place] [address] [place] Cocaine Screen,Urine Negative Normal Negative [facility] Comment on above: Performed By: #### U RDS #### [place] [address] [place] Opiate Screen,Urine Negative Normal Negative [facility] Comment on above: Performed By: #### U RDS #### [facility] [address] Phencyclidine Screen,Urine Negative Normal Negative [facility] Comment on above: Performed By: #### U RDS #### [facility] [address] Opiates [Presence] in Urine by Screen methodOrdered By: Jace Graham on 03-23-2023 Opiates Screen Ql (U) Negative Negative [facility] Phencyclidine Screen Ql (U)O rdered By: Jace Graham on 03-23-2023 Phencyclidine Ql (U) Negative Negative [facility] Cholesterol [Mass/volume] in Serum or PlasmaOrdered By: Eduardo Monk on 11-18-2022 Cholesterol [Mass/Vol] 159 mg/dL Normal 140-200 [facility] Comment on above: Chol less than 200 m g/dl low riskChol 201-239 mg/dl borderline riskChol 240 mg/dl and greater high risk Order Comment: teri barney to tomorrow morning Result Comment: Chol less than 200 mg/dl low risk Chol 201-239 mg/dl borderline risk Chol 240 mg/dl and greater high risk Performed By: #### L IPID #### [facility] [address] Cholesterol in LDL Calc [Mas s/Vol]Ordered By: Eduardo Monk on 11-18-2022 Cholesterol in LDL [Mass/Vol] 84 mg/dL 0-100 [facility] Comment on above: LDL ATP III CLASSIFI CATIONLDL less than 100 mg/dL OptimalLDL 100-129 mg/dL Near or above optimalLDL 130-159 mg/dL Borderline highLDL 160-189 mg/dL HighLDL greater than 189 mg/dL Very high Cholesterol in VLDL Calc [Ma ss/Vol]Ordered By: Eduardo Monk on 11-18-2022 Cholesterol in VLDL [Mass/Vol] 28 mg/dL [facility] Lipid Panelon 11-18-2022 LDL Cholesterol,Calculated 84 mg/dL Normal 0-100 [facility] Comment on above: Order Comment: teri barney to tomorrow morning Result Comment: LDL ATP III CLASSIFICATION LDL less than 100 mg/dL Optimal LDL 100-129 mg/dL Near or above optimal LDL 130-159 mg/dL Borderline high LDL 160-189 mg/dL High LDL greater than 189 mg/dL Very high Performed By: #### L IPID #### [facility] [address] [id number] [facility] Triglyceride w/Reflex 144 mg/dL Normal 0-149 [facility] Comment on above: Order Comment: teri barney to orr morning Result Comment: TRIG ATP III CLASSIFICATION TRIG less than 150 mg/dL Normal TRIG 150-199 mg/dL Borderline high TRIG 200-500 mg/dL High TRIG greater than 500 mg/dL Very high Standard traceable to the Center for Disease Conrtrol and Prevention (CDC) test method. Performed By: #### L IPID #### [facility] [address] VLDL CHOLESTEROL 28 mg/dL Normal [facility] Comment on above: Order Comment: teri barney to Performed By: #### L IPID #### [facility] [address] [place] [id number] [facility] Serum or plasma high density lipoprotein (HDL) cholesterol measurementOrdered By: Eduardo Monk on 11-18-2022 Cholesterol in HDL [Mass/Vol] 46 mg/dL Normal 23-92 [facility] Comment on above: HDL CHOL ATP-III CLA SSIFICATION Cardiovascular RiskHDL > or equal to 60 mg/dL LOWHDL < 40 mg/dL HIGH Order Comment: teri barney to Result Comment: HDL CHOL ATP-III CLASSIFICATION Cardiovascular Risk HDL > or equal to 60 mg/dL LOW HDL < 40 mg/dL HIGH Performed By: #### L IPID #### [facility] [address] [place] [id number] [facility] Serum or plasma total choles terol/high density lipoprotein (HDL) cholesterol mass ratOrdered By: Eduardo Monk on 11-18-2022 Cholesterol.total/Chol esterol in HDL [Mass ratio] 3.5 {ratio} Normal <5.0 [facility] Comment on above: Order Comment: teri barney to tomorrow morning Result Comment: PERF ORMED BY: [place] [address] PATHOLOGIST STAFF DEVELOPMENT NURSE AN CURRY M.D. Performed By: #### L IPID #### [facility] [address] [place] [address] Thyrotropin [Units/volume] i n Serum or PlasmaOrdered By: Eduardo Monk on 11-18-2022 TSH Qn 2.13 m[IU]/L Normal 0.45-5.33 [facility] Comment on above: Performed By: #### T SH3, [id number] #### [address] Triglyceride [Mass/volume] i n Serum or PlasmaOrdered By: Eduardo Monk on 11-18-2022 Triglyceride [Mass/Vol] 144 mg/dL 0-149 [facility] Comment on above: TRIG ATP III CLASSIF ICATIONTRIG less than 150 mg/dL NormalTRIG 150-199 mg/dL Borderline highTRIG 200-500 mg/dL High TRIG greater than 500 mg/dL Very highStandard traceable to the Center for Disease Conrtrol and Prevention (CDC) test method. Vitamin D 25 Hydroxy Totalon 11-18-2022 Vitamin D 25 Hydroxy Total 50.4 ng/mL Normal 30-100 [facility] Comment on above: Result Comment: SKYLER MIN D STATUS 25(OH)VITAMIN D RANGE (ng/mL) Deficient <20 Insufficient 20 to <30 Sufficient 30 to 100 Reference: Bin MF,Lakshmi NC, Cristian SMART, et al. Evaluation,treatment, and prevention of vitamin D deficiency; an Endocrine Society clinical practice guideline. JCEM. 2010; 96(7):1911-30. PERFORMED BY: [place] [address] PATHOLOGIST STAFF DEVELOPMENT NURSE AN CURRY M.D. Performed By: #### T SH3, [id number] #### [address] Vitamin D+Metabolites [Mass/ volume] in Serum or PlasmaOrdered By: Eduardo Monk on 11-18-2022 Vitamin D+Metabolites [Mass/Vol] 50.4 ng/mL 30-100 [facility] Comment on above: VITAMIN D STATUS 25( [place])VITAMIN D RANGE (ng/mL) Deficient <20 Insufficient 20 to <30Sufficient 30 to 100Reference: Bin MF,Lakshmi NC, Cristian SMART, et al. Evaluation,treatment, and prevention of vitamin D deficiency; an Endocrine Society clinical practice guideline. JCEM. 2010; 96():1911-30. CBC AUTO DIFFon 07-25-2022 BASO # 0.1 103/ul Normal 0.0-0.1 [facility] Comment on above: Performed By: #### A 1C #### [facility] [address] [address] [address] Bebeto Alvarado Basophils/100 WBC (Bld) 0.6 % Normal 0.2-2.0 [facility] Comment on above: Performed By: #### A 1C #### [facility] [address] [address] [address] Bebeto Alvarado EO # 0.2 103/ul Normal 0.0-0.7 [facility] Comment on above: Performed By: #### A 1C #### [facility] [address] [address] [address] Bebeto Alvarado Eosinophils/100 WBC (Bld) 2.3 % Normal 0.9-7.0 [facility] Comment on above: Performed By: #### A 1C #### [facility] [address] [address] [address] Bebeto Alvarado Erythrocyte distribution width (RBC) [Ratio] 13.8 % Normal 11.0-15.0 [facility] Comment on above: Performed By: #### A 1C #### [facility] [address] [address] [address] Bebeto Alvarado Hematocrit (Bld) [Volume fraction] 41.2 % Normal 36.0-48.0 [facility] Comment on above: Performed By: #### A 1C #### [facility] [address] [place] [address] Dr. Bebeto Alvarado Hemoglobin (Bld) [Mass/Vol] 13.2 g/dL Normal 12.0-16.0 [facility] Comment on above: Performed By: #### A 1C #### [facility] [address] [place] [address] Dr. Bebeto Alvarado IG # 0.03 10e3/ul Normal 0.00-0.03 [facility] Comment on above: Performed By: #### A 1C #### [facility] [address] [place] [address] Dr. Bebeto Alvarado IG % 0.4 % Normal 0.0-0.5 [facility] Comment on above: Performed By: #### A 1C #### [facility] [address] [place] [address] Dr. Bebeto Alvarado LYMPH # 2.1 103/ul Normal 1.2-3.8 [facility] Comment on above: Performed By: #### A 1C #### [facility] [address] [place] [address] Dr. Bebeto Alvarado Lymphocytes/100 WBC (Bld) 25.9 % Normal 20.5-60.0 [facility] Comment on above: Performed By: #### A 1C #### [facility] [address] [place] [address] Dr. Bebeto Alvarado MANUAL DIFF REQ NO Normal [facility] Comment on above: Performed By: #### A 1C #### [facility] [address] [place] [address] Dr. Bebeto Alvarado MCH (RBC) [Entitic mass] 28.0 pg Normal 26.7-34.0 [facility] Comment on above: Performed By: #### A 1C #### [facility] [address] [place] [address] Dr. Bebeto Alvarado MCHC (RBC) [Mass/Vol] 32.0 g/dL Normal 29.9-35.2 [facility] Comment on above: Performed By: #### A 1C #### [facility] [address] [place] [address] Dr. Bebeto Alvarado MCV (RBC) [Entitic vol] 87.5 fL Normal 81.0-99.0 [facility] Comment on above: Performed By: #### A 1C #### [facility] [address] [place] [address] Dr. Bebeto Alvarado MONO # 0.5 103/ul Normal 0.3-0.8 [facility] Comment on above: Performed By: #### A 1C #### [facility] [address] [place] [address] Dr. Bebeto Alvarado Monocytes/100 WBC (Bld) 6.6 % Normal 1.7-12.0 [facility] Comment on above: Performed By: #### A 1C #### [facility] [address] [place] [address] Dr. Bebeto Alvarado NEUT # 5.1 103/ul Normal 1.4-6.5 [facility] Comment on above: Performed By: #### A 1C #### [facility] [address] [place] [address] Dr. Bebeto Alvarado Neutrophils/100 WBC (Bld) 64.2 % Normal 43.0-75.0 [facility] Comment on above: Performed By: #### A 1C #### [facility] [address] [place] [address] Dr. Bebeto Alvarado Platelet mean volume (Bld) [Entitic vol] 11.2 fL Normal 9.5-13.5 [facility] Comment on above: Performed By: #### A 1C #### [facility] [address] [place] [address] Dr. Bebeto Alvarado PLT 252 103/ul Normal 150-450 [facility] Comment on above: Performed By: #### A 1C #### [facility] [address] [place] [address] Dr. Bebeto Alvarado RBC 4.71 106/ul Normal 4.20-5.40 [facility] Comment on above: Performed By: #### A 1C #### [facility] [address] [place] [address] Dr. Bebeto Alvarado WBC 8.0 103/ul Normal 4.0-11.0 [facility] Comment on above: Performed By: #### A 1C #### [facility] [address] [address] [address] Bebeto Alvarado GLYCOHEMOGLOBIN A1Con 2022 ADA RECOMMENDATION SEE BELOW Normal [facility] Comment on above: Result Comment: ADA RECOMMENDED LIMIT 4.0 - 6.0 ADA THERAPEUTIC TARGET < 7.0 ACTION SUGGESTED > 7.0 Performed By: #### A 1C #### [facility] [address] [address] [address] Bebeto Alvarado Glucose [Mass/Vol] 114 mg/dL Normal [facility] Comment on above: Performed By: #### A 1C #### [facility] [address] [address] [address] Bebeto Alvarado HbA1c (Bld) [Mass fraction] 5.6 % Normal 4.5-6.2 [facility] Comment on above: Performed By: #### A 1C #### [facility] [address] [address] [address] Bebeto Alvarado IRONon 07-25-2022 Iron [Mass/Vol] 60.0 ug/dL Normal 50.0-170.0 [facility] Comment on above: Performed By: #### V ITB12, IRON #### [facility] [address] [place] [address] Dr. Bebeto Alvarado LIPID PROFILEon 07-25-2022 CHOL-HDL RATIO NORM SEE BELOW Normal [facility] Comment on above: Result Comment: 3.3 - 4.4 LOW RISK 4.4 - 7.1 AVERAGE RISK 7.1 - 11.0 MODERATE RISK >11.0 HIGH RISK Performed By: #### C MP, LIPID #### [facility] [address] [place] [address] Dr. Bebeto Alvarado Cholesterol [Mass/Vol] 144 mg/dL Normal <=200 [facility] Comment on above: Performed By: #### C MP, LIPID #### [facility] [address] [place] [address] Dr. Bebeto Alvarado Cholesterol in HDL [Mass/Vol] 39 mg/dL Critically low 40-60 [facility] Comment on above: Performed By: #### C MP, LIPID #### [facility] [address] [address] [address] Bebeto Alvarado Cholesterol in LDL [Mass/Vol] 74.6 mg/dL Normal [facility] Comment on above: Performed By: #### C MP, LIPID #### [facility] [address] [address] [address] Bebeto Alvarado Cholesterol.total/Chol esterol in HDL [Mass ratio] 3.7 {ratio} Normal [facility] Comment on above: Performed By: #### C MP, LIPID #### [facility] [address] [address] [address] Bebeto Alvarado HDL NORMAL > or = 60 mg/dl - LO W CARDIOVASCULAR RISK <40 mg/dl - HIGH CARDIOVASCULAR RISK Normal [facility] Comment on above: Performed By: #### C MP, LIPID #### [facility] [address] [place] [address] Dr. Bebeto Alvarado LDL CALC NORMAL SEE BELOW Normal [facility] Comment on above: Result Comment: <100 mg/dl OPTIMAL 100 - 129 mg/dl NEAR OR ABOVE OPTIMAL 130 - 159 mg/dl BORDERLINE HIGH 160 - 189 mg/dl HIGH >190 mg/dl VERY HIGH Performed By: #### C MP, LIPID #### [facility] [address] [place] [address] Dr. Bebeto Alvarado Triglyceride [Mass/Vol] 152 mg/dL Critically high <=150 [facility] Comment on above: Performed By: #### C MP, LIPID #### [facility] [address] [address] [address] Bebeto Alvarado VLDL CALC 30.4 mg/dL Normal [facility] Comment on above: Performed By: #### C MP, LIPID #### [facility] [address] [address] [address] Bebeto Alvarado PROF 14(COMP METB)on 023 Albumin [Mass/Vol] 3.7 g/dL Normal 3.4-5.0 [facility] Comment on above: Performed By: #### C MP, LIPID #### [facility] [address] [address] [address] Bebeto Alvarado Albumin/Globulin [Mass ratio] 0.9 {ratio} Normal [facility] Comment on above: Performed By: #### C MP, LIPID #### [facility] [address] [address] [address] Bebeto Alvarado ALP [Catalytic activity/Vol] 90 U/L Normal 46-116 [facility] Comment on above: Performed By: #### C MP, LIPID #### [facility] [address] [address] [address] Bebeto Alvarado ALT [Catalytic activity/Vol] 38 U/L Normal 14-59 [facility] Comment on above: Performed By: #### C MP, LIPID #### [facility] [address] [address] [address] Bebeto Alvarado Anion gap [Moles/Vol] 12.1 mmol/L Normal [facility] Comment on above: Performed By: #### C MP, LIPID #### [facility] [address] [address] [address] Bebeto Alvarado AST [Catalytic activity/Vol] 26 U/L Normal 15-37 [facility] Comment on above: Performed By: #### C MP, LIPID #### [facility] [address] [address] [address] Bebeto Alvarado Bilirubin [Mass/Vol] 0.3 mg/dL Normal 0.2-1.0 [facility] Comment on above: Performed By: #### C MP, LIPID #### [facility] [address] [address] [address] Bebeto Alvarado Calcium [Mass/Vol] 9.3 mg/dL Normal 8.5-10.1 [facility] Comment on above: Performed By: #### C MP, LIPID #### [facility] [address] [address] [address] Bebeto Alvarado Chloride [Moles/Vol] 107 mmol/L Normal 98-107 [facility] Comment on above: Performed By: #### C MP, LIPID #### [facility] [address] [address] [address] Bebeto Alvarado CO2 [Moles/Vol] 27.9 mmol/L Normal 21.0-32.0 [facility] Comment on above: Performed By: #### C MP, LIPID #### [facility] [address] [address] [address] Bebeto Alvarado Creatinine [Mass/Vol] 0.95 mg/dL Normal 0.55-1.02 [facility] Comment on above: Performed By: #### C MP, LIPID #### [facility] [address] [address] [address] Bebeto Alvarado EGFR-AF LAO >60 Normal >=60 [facility] Comment on above: Performed By: #### C MP, LIPID #### [facility] [address] [address] [address] Bebeto Alvarado EGFR-NON AF LAO 60 mL/min/1.73m2 Normal >=60 [facility] Comment on above: Performed By: #### C MP, LIPID #### [facility] [address] [address] [address] Bebeto Alvarado Globulin (S) [Mass/Vol] 3.9 g/dL Normal [facility] Comment on above: Performed By: #### C MP, LIPID #### [facility] [address] [address] [address] Bebeto Alvarado Glucose [Mass/Vol] 108 mg/dL Critically high 74-106 [facility] Comment on above: Performed By: #### C MP, LIPID #### [facility] [address] [address] [address] Bebeto Alvarado Potassium [Moles/Vol] 4.0 mmol/L Normal 3.5-5.1 [facility] Comment on above: Performed By: #### C MP, LIPID #### [facility] [address] [address] [address] Bebeto Alvarado Protein [Mass/Vol] 7.6 g/dL Normal 6.4-8.2 [facility] Comment on above: Performed By: #### C MP, LIPID #### [facility] [address] [place] [address] Dr. Bebeto Alvarado Sodium [Moles/Vol] 143 mmol/L Normal 136-145 [facility] Comment on above: Performed By: #### C MP, LIPID #### [facility] [address] [place] [address] Dr. Bebeto Alvarado Urea nitrogen [Mass/Vol] 15.0 mg/dL Normal 7.0-18.0 [facility] Comment on above: Performed By: #### C MP, LIPID #### [facility] [address] [place] [address] Dr. Bebeto Alvarado Urea nitrogen/Creatinine [Mass ratio] 15.8 mg/mg Normal [facility] Comment on above: Performed By: #### C MP, LIPID #### [facility] [address] [place] [address] Dr. Bebeto Alvarado UA RANDOM W/MICROSCOPICon BACTERIA NONE SEEN Normal NONE [facility] Comment on above: Performed By: #### A 1C #### [facility] [address] [place] [address] Dr. Bebeto Alvarado Bilirubin Ql (U) Negative Normal NEGATIVE [facility] Comment on above: Performed By: #### A 1C #### [facility] [address] [place] [address] Dr. Bebeto Alvarado CAST NONE SEEN Normal NONE [facility] Comment on above: Performed By: #### A 1C #### [facility] [address] [place] [address] Dr. Bebeto Alvarado Clarity (U) CLEAR Normal CLEAR [facility] Comment on above: Performed By: #### A 1C #### [facility] [address] [place] [address] Dr. Bebeto Alvarado Color (U) YELLOW Normal YELLOW [facility] Comment on above: Performed By: #### A 1C #### [facility] [address] [place] [address] Dr. Bebeto Alvarado Crystals LM Nom (Urine sed) NONE SEEN Normal NONE [facility] Comment on above: Performed By: #### A 1C #### [facility] [address] [place] [address] Dr. Bebeto Alvarado Epithelial cells LM Ql (Urine sed) NONE SEEN Normal NONE SEEN /RARE [facility] Comment on above: Performed By: #### A 1C #### [facility] [address] [place] [address] Dr. Bebeto Alvarado Glucose Ql (U) Negative Normal NEGATIVE [facility] Comment on above: Performed By: #### A 1C #### [facility] [address] [place] [address] Dr. Bebeto Alvarado Hemoglobin Ql (U) Negative Normal NEGATIVE [facility] Comment on above: Performed By: #### A 1C #### [facility] [address] [place] [address] Dr. Bebeto Alvarado Ketones Ql (U) Negative Normal NEGATIVE [facility] Comment on above: Performed By: #### A 1C #### [facility] [address] [place] [address] Dr. Bebeto Alvarado LEUKOCYTES Negative Normal NEGATIVE [facility] Comment on above: Performed By: #### A 1C #### [facility] [address] [place] [address] Dr. Bebeto Alvarado MUCOUS NONE SEEN Normal NONE SEEN [facility] Comment on above: Performed By: #### A 1C #### [facility] [address] [place] [address] Dr. Bebeto Alvarado Nitrite Ql (U) Negative Normal NEGATIVE [facility] Comment on above: Performed By: #### A 1C #### [facility] [address] [place] [address] Dr. Bebeto Alvarado pH (U) 5.5 [pH] Normal 5-9 [facility] Comment on above: Performed By: #### A 1C #### [facility] [address] [place] [address] Dr. Bebeto Alvarado RBC NONE SEEN Abnormal 0-2 [facility] Comment on above: Performed By: #### A 1C #### [facility] [address] [place] [address] Dr. Bebeto Alvarado SPEC GRAVITY 1.030 Abnormal 1.005-<=1.02 5 [facility] Comment on above: Performed By: #### A 1C #### [facility] [address] [place] [address] Dr. Bebeto Alvarado UA PROTEIN Negative Normal NEGATIVE/ TRACE [facility] Comment on above: Performed By: #### A 1C #### [facility] [address] [place] [address] Dr. Bebeto Alvarado Urobilinogen Qn (U) 0.2 {Katerin'U}/dL Normal 0.2 - 1. 0 [facility] Comment on above: Performed By: #### A 1C #### [facility] [address] [place] [address] Dr. Bebeto Alvarado WBC NONE SEEN Normal NONE SEEN [facility] Comment on above: Performed By: #### A 1C #### [facility] [address] [place] [address] Dr. Bebeto Alvarado VITAMIN B12on 07-25-2022 Cobalamin (Vitamin B12) [Mass/Vol] 1684.0 pg/mL Critically high 193.0-986.0 [facility] Comment on above: Performed By: #### V ITB12, IRON #### [facility] [address] [place] [address] Dr. Bebeto Alvarado PROF CHEM 8 (BAS METB)on Anion gap [Moles/Vol] 12.2 mmol/L Normal [facility] Comment on above: Performed By: #### B MP #### [facility] [address] [place] [address] Dr. Bebeto Alvarado Calcium [Mass/Vol] 8.9 mg/dL Normal 8.5-10.1 [facility] Comment on above: Performed By: #### B MP #### [facility] [address] [place] [address] Dr. Bebeto Alvarado Chloride [Moles/Vol] 105 mmol/L Normal 98-107 [facility] Comment on above: Performed By: #### B MP #### [facility] [address] [place] [address] Dr. Bebeto Alvarado CO2 [Moles/Vol] 29.6 mmol/L Normal 21.0-32.0 [facility] Comment on above: Performed By: #### B MP #### [facility] [address] [address] [address] Bebeto Alvarado Creatinine [Mass/Vol] 0.95 mg/dL Normal 0.55-1.02 [facility] Comment on above: Performed By: #### B MP #### [facility] [address] [address] [address] Bebeto Alvarado EGFR-AF LAO >60 Normal >=60 [facility] Comment on above: Performed By: #### B MP #### [facility] [address] [place] [address] Dr. Bebeto Alvarado EGFR-NON AF LAO 60 mL/min/1.73m2 Normal >=60 [facility] Comment on above: Performed By: #### B MP #### [facility] [address] [place] [address] Dr. Bebeto Alvarado Glucose [Mass/Vol] 101 mg/dL Normal 74-106 [facility] Comment on above: Performed By: #### B MP #### [facility] [address] [place] [address] Dr. Bebeto Alvarado Potassium [Moles/Vol] 3.8 mmol/L Normal 3.5-5.1 [facility] Comment on above: Performed By: #### B MP #### [facility] [address] [place] [address] Dr. Bebeto Alvarado Sodium [Moles/Vol] 143 mmol/L Normal 136-145 [facility] Comment on above: Performed By: #### B MP #### [facility] [address] [place] [address] Dr. Bebeto Alvarado Urea nitrogen [Mass/Vol] 16.0 mg/dL Normal 7.0-18.0 [facility] Comment on above: Performed By: #### B MP #### [facility] [address] [place] [address] Dr. Bebeto Alvarado Urea nitrogen/Creatinine [Mass ratio] 16.8 mg/mg Normal [facility] Comment on above: Performed By: #### B MP #### [facility] [address] [place] [address] Dr. Bebeto Alvarado CBC AUTO DIFFon 11-21-2021 BASO # 0.1 103/ul Normal 0.0-0.1 [facility] Comment on above: Performed By: #### A 1C #### [facility] [address] [place] [address] Dr. Bebeto Alvarado Basophils/100 WBC (Bld) 1.0 % Normal 0.2-2.0 [facility] Comment on above: Performed By: #### A 1C #### [facility] [address] [place] [address] Dr. Bebeto Alvarado EO # 0.2 103/ul Normal 0.0-0.7 [facility] Comment on above: Performed By: #### A 1C #### [facility] [address] [place] [address] Dr. Bebeto Alvarado Eosinophils/100 WBC (Bld) 3.3 % Normal 0.9-7.0 [facility] Comment on above: Performed By: #### A 1C #### [facility] [address] [place] [address] Dr. Bebeto Alvarado Erythrocyte distribution width (RBC) [Ratio] 13.8 % Normal 11.0-15.0 [facility] Comment on above: Performed By: #### A 1C #### [facility] [address] [place] [address] Dr. Bebeto Alvarado Hematocrit (Bld) [Volume fraction] 38.8 % Normal 36.0-48.0 [facility] Comment on above: Performed By: #### A 1C #### [facility] [address] [place] [address] Dr. Bebeto Alvarado Hemoglobin (Bld) [Mass/Vol] 12.5 g/dL Normal 12.0-16.0 [facility] Comment on above: Performed By: #### A 1C #### [facility] [address] [place] [address] Dr. Bebeto Alvarado IG # 0.02 10e3/ul Normal 0.00-0.03 [facility] Comment on above: Performed By: #### A 1C #### [facility] [address] [place] [address] Dr. Bebeto Alvarado IG % 0.3 % Normal 0.0-0.5 [facility] Comment on above: Performed By: #### A 1C #### [facility] [address] [place] [address] Dr. Bebeto Alvarado LYMPH # 1.9 103/ul Normal 1.2-3.8 [facility] Comment on above: Performed By: #### A 1C #### [facility] [address] [place] [address] Dr. Bebeto Alvarado Lymphocytes/100 WBC (Bld) 29.6 % Normal 20.5-60.0 [facility] Comment on above: Performed By: #### A 1C #### [facility] [address] [place] [address] Dr. Bebeto Alvarado MANUAL DIFF REQ NO Normal [facility] Comment on above: Performed By: #### A 1C #### [facility] [address] [place] [address] Dr. Bebeto Alvarado MCH (RBC) [Entitic mass] 28.0 pg Normal 26.7-34.0 [facility] Comment on above: Performed By: #### A 1C #### [facility] [address] [place] [address] Dr. Bebeto Alvarado MCHC (RBC) [Mass/Vol] 32.2 g/dL Normal 29.9-35.2 [facility] Comment on above: Performed By: #### A 1C #### [facility] [address] [place] [address] Dr. Bebeto Alvarado MCV (RBC) [Entitic vol] 86.8 fL Normal 81.0-99.0 [facility] Comment on above: Performed By: #### A 1C #### [facility] [address] [place] [address] Dr. Bebeto Alvarado MONO # 0.4 103/ul Normal 0.3-0.8 [facility] Comment on above: Performed By: #### A 1C #### [facility] [address] [address] [address] Bebeto Alvarado Monocytes/100 WBC (Bld) 5.7 % Normal 1.7-12.0 [facility] Comment on above: Performed By: #### A 1C #### [facility] [address] [address] [address] Bebeto Alvarado NEUT # 3.8 103/ul Normal 1.4-6.5 [facility] Comment on above: Performed By: #### A 1C #### [facility] [address] [place] [address] Dr. Bebeto Alvarado Neutrophils/100 WBC (Bld) 60.1 % Normal 43.0-75.0 [facility] Comment on above: Performed By: #### A 1C #### [facility] [address] [place] [address] Dr. Bebeto Alvarado Platelet mean volume (Bld) [Entitic vol] 11.0 fL Normal 9.5-13.5 [facility] Comment on above: Performed By: #### A 1C #### [facility] [address] [place] [address] Dr. Bebeto Alvarado PLT 264 103/ul Normal 150-450 [facility] Comment on above: Performed By: #### A 1C #### [facility] [address] [place] [address] Dr. Bebeto Alvarado RBC 4.47 106/ul Normal 4.20-5.40 [facility] Comment on above: Performed By: #### A 1C #### [facility] [address] [place] [address] Dr. Bebeto Alvarado WBC 6.3 103/ul Normal 4.0-11.0 [facility] Comment on above: Performed By: #### A 1C #### [facility] [address] [place] [address] Dr. Bebeto Alvarado GLYCOHEMOGLOBIN A1Con 2021 ADA RECOMMENDATION SEE BELOW Normal [facility] Comment on above: Result Comment: ADA RECOMMENDED LIMIT 4.0 - 6.0 ADA THERAPEUTIC TARGET < 7.0 ACTION SUGGESTED > 7.0 Performed By: #### A 1C #### [facility] [address] [address] [address] Bebeto Alvarado Glucose [Mass/Vol] 105 mg/dL Normal [facility] Comment on above: Performed By: #### A 1C #### [facility] [address] [address] [address] Bebeto Alvarado HbA1c (Bld) [Mass fraction] 5.3 % Normal 4.5-6.2 [facility] Comment on above: Performed By: #### A 1C #### [facility] [address] [place] [address] Dr. Bebeto Alvarado IRONon 11-21-2021 Iron [Mass/Vol] 59.0 ug/dL Normal 50.0-170.0 [facility] Comment on above: Performed By: #### A 1C #### [facility] [address] [place] [address] Dr. Bebeto Alvarado LIPID PROFILEon 11-21-2021 CHOL-HDL RATIO NORM SEE BELOW Normal [facility] Comment on above: Result Comment: 3.3 - 4.4 LOW RISK 4.4 - 7.1 AVERAGE RISK 7.1 - 11.0 MODERATE RISK >11.0 HIGH RISK Performed By: #### C MP, LIPID #### [facility] [address] [place] [address] Dr. Bebeto Alvarado Cholesterol [Mass/Vol] 139 mg/dL Normal <=200 [facility] Comment on above: Performed By: #### C MP, LIPID #### [facility] [address] [place] [address] Dr. Bebeto Alvarado Cholesterol in HDL [Mass/Vol] 35 mg/dL Critically low 40-60 [facility] Comment on above: Performed By: #### C MP, LIPID #### [facility] [address] [place] [address] Dr. Bebeto Alvarado Cholesterol in LDL [Mass/Vol] 69.6 mg/dL Normal [facility] Comment on above: Performed By: #### C MP, LIPID #### [facility] [address] [address] [address] Bebeto Alvarado Cholesterol.total/Chol esterol in HDL [Mass ratio] 4.0 {ratio} Normal [facility] Comment on above: Performed By: #### C MP, LIPID #### [facility] [address] [address] [address] Bebeto Alvarado HDL NORMAL > or = 60 mg/dl - LO W CARDIOVASCULAR RISK <40 mg/dl - HIGH CARDIOVASCULAR RISK Normal [facility] Comment on above: Performed By: #### C MP, LIPID #### [facility] [address] [address] [address] Bebeto Alvarado LDL CALC NORMAL SEE BELOW Normal [facility] Comment on above: Result Comment: <100 mg/dl OPTIMAL 100 - 129 mg/dl NEAR OR ABOVE OPTIMAL 130 - 159 mg/dl BORDERLINE HIGH 160 - 189 mg/dl HIGH >190 mg/dl VERY HIGH Performed By: #### C MP, LIPID #### [facility] [address] [place] [address] Dr. Bebeto Alvarado Triglyceride [Mass/Vol] 172 mg/dL Critically high <=150 [facility] Comment on above: Performed By: #### C MP, LIPID #### [facility] [address] [place] [address] Dr. Bebeto Alvarado VLDL CALC 34.4 mg/dL Normal [facility] Comment on above: Performed By: #### C MP, LIPID #### [facility] [address] [place] [address] Dr. Bebeto Alvarado PROF 14(COMP METB)on 022 Albumin [Mass/Vol] 3.8 g/dL Normal 3.4-5.0 [facility] Comment on above: Performed By: #### C MP, LIPID #### [facility] [address] [place] [address] Dr. Bebeto Alvarado Albumin/Globulin [Mass ratio] 1.1 {ratio} Normal [facility] Comment on above: Performed By: #### C MP, LIPID #### [facility] [address] [place] [address] Dr. Bebeto Alvarado ALP [Catalytic activity/Vol] 96 U/L Normal 46-116 [facility] Comment on above: Performed By: #### C MP, LIPID #### [facility] [address] [place] [address] Dr. Bebeto Alvarado ALT [Catalytic activity/Vol] 25 U/L Normal 14-59 [facility] Comment on above: Performed By: #### C MP, LIPID #### [facility] [address] [place] [address] Dr. Bebeto Alvarado Anion gap [Moles/Vol] 11.8 mmol/L Normal [facility] Comment on above: Performed By: #### C MP, LIPID #### [facility] [address] [place] [address] Dr. Bebeto Alvarado AST [Catalytic activity/Vol] 20 U/L Normal 15-37 [facility] Comment on above: Performed By: #### C MP, LIPID #### [facility] [address] [place] [address] Dr. Bebeto Alvarado Bilirubin [Mass/Vol] 0.4 mg/dL Normal 0.2-1.0 [facility] Comment on above: Performed By: #### C MP, LIPID #### [facility] [address] [place] [address] Dr. Bebeto Alvarado Calcium [Mass/Vol] 8.8 mg/dL Normal 8.5-10.1 [facility] Comment on above: Performed By: #### C MP, LIPID #### [facility] [address] [place] [address] Dr. Bebeto Alvarado Chloride [Moles/Vol] 106 mmol/L Normal 98-107 [facility] Comment on above: Performed By: #### C MP, LIPID #### [facility] [address] [place] [address] Dr. Bebeto Alvarado CO2 [Moles/Vol] 27.0 mmol/L Normal 21.0-32.0 [facility] Comment on above: Performed By: #### C MP, LIPID #### [facility] [address] [place] [address] Dr. Bebeto Alvarado Creatinine [Mass/Vol] 0.97 mg/dL Normal 0.55-1.02 [facility] Comment on above: Performed By: #### C MP, LIPID #### [facility] [facility] [address] [address] [address] Bebeto Alvarado EGFR-AF LAO >60 Normal >=60 [facility] Comment on above: Performed By: #### C MP, LIPID #### [facility] [address] [address] [address] Bebeto Alvarado EGFR-NON AF LAO 59 mL/min/1.73m2 Critically low >=60 [facility] Comment on above: Performed By: #### C MP, LIPID #### [facility] [address] [place] [address] Dr. Beebto Alvarado Globulin (S) [Mass/Vol] 3.4 g/dL Normal [facility] Comment on above: Performed By: #### C MP, LIPID #### [facility] [address] [address] [address] Bebeto Alvarado Glucose [Mass/Vol] 103 mg/dL Normal 74-106 [facility] Comment on above: Performed By: #### C MP, LIPID #### [facility] [address] [place] [address] Dr. Bebeto Alvarado Potassium [Moles/Vol] 3.8 mmol/L Normal 3.5-5.1 [facility] Comment on above: Performed By: #### C MP, LIPID #### [facility] [address] [address] [address] Bebeto Alvarado Protein [Mass/Vol] 7.2 g/dL Normal 6.4-8.2 [facility] Comment on above: Performed By: #### C MP, LIPID #### [facility] [address] [place] [address] Dr. Bebeto Alvarado Sodium [Moles/Vol] 141 mmol/L Normal 136-145 [facility] Comment on above: Performed By: #### C MP, LIPID #### [facility] [address] [place] [address] Dr. Bebeto Alvarado Urea nitrogen [Mass/Vol] 11.0 mg/dL Normal 7.0-18.0 [facility] Comment on above: Performed By: #### C MP, LIPID #### [facility] [address] [place] [address] Dr. Bebeto Alvarado Urea nitrogen/Creatinine [Mass ratio] 11.3 mg/mg Normal [facility] Comment on above: Performed By: #### C MP, LIPID #### [facility] [address] [place] [address] Dr. Bebeto Alvarado URIC ACID SERUMon 11-21-2021 Urate [Mass/Vol] 7.3 mg/dL Critically high 2.6-6.0 [facility] Comment on above: Performed By: #### A 1C #### [facility] [address] [place] [address] Dr. Bebeto Alvarado VITAMIN B12on 11-21-2021 Cobalamin (Vitamin B12) [Mass/Vol] 2123.0 pg/mL Critically high 193.0-986.0 [facility] Comment on above: Performed By: #### A 1C #### [facility] [address] [place] [address] Dr. Bebeto Alvarado Physician Referralon 022 Physician Referral [phone] [id number] Normal [facility] KNEE RIGHT 1 OR 2 [facility] KNEE RIGHT 1 OR 2 S [facility] Department of Radiology [address] [place] [phone] ======== Patient Name: MICHELLE BE : [...] Electronically signed by:Debra Del Cid. Transcribed by: [email or web address], User Resident: Electronically Signed by: DEBRA DEL CID @ 02/08/2019 11:16 AM Normal [facility] Comment on above: Order Comment: , Mabel ws (X-RAY, KNEE): Radiologic Protocol , Weight Bearing?: N , With or Without Brace/Cast/Collar: With , Views (X-RAY, KNEE): Radiologic Protocol , Weight Bearing?: N , With or Without Brace/Cast/Collar: With , , , Ordering Provider - AHSAN BINGHAM PA-C , KNEE RIGHT 1 OR 2 VWSon KNEE RIGHT 1 OR 2 VWS [facility] Department of Radiology [address] [place] [phone] ======== Patient Name: MICHELLE BE : [...] complications. Electronically signed by:Tomasz Stoll. Transcribed by: [email or web address], User Resident: Electronically Signed by: TOMASZ STOLL @ 12/07/2018 11:14 AM Normal [facility] Comment on above: Order Comment: , Vie ws (X-RAY, KNEE): Radiologic Protocol , Weight Bearing?: N , With or Without Brace/Cast/Collar: With , Views (X-RAY, KNEE): Radiologic Protocol , Weight Bearing?: N , With or Without Brace/Cast/Collar: With , , , Ordering Provider - AHSAN BINGHAM PA-C , KNEE RIGHT 1 OR 2 [facility] KNEE RIGHT 1 OR 2 [facility] Department of Radiology [address] [place] [phone] ======== Patient Name: MICHELLE BE : [...] osteoarthritis Electronically signed by:Anup Ellison. Transcribed by: [email or web address], User Resident: Electronically Signed by: ANUP ELLISON @ 10/06/2018 02:48 PM Normal [facility] Comment on above: Order Comment: , Vie ws (X-RAY, KNEE): Radiologic Protocol , Weight Bearing?: N , With or Without Brace/Cast/Collar: With , Views (X-RAY, KNEE): Radiologic Protocol , Weight Bearing?: N , With or Without Brace/Cast/Collar: With , , , Ordering Provider - AHSAN BINGHAM PA-C , KNEE RIGHT 1 OR 2 [facility] 08-05 KNEE RIGHT 1 OR 2 [facility] Department of Radiology [address] [place] [phone] ======== Patient Name: MICHELLE BE : [...] effusion Electronically signed by:Anup Ellison. Transcribed by: [email or web address], User Resident: Electronically Signed by: ANUP ELLISON @ 08/26/2018 04:56 PM Normal [facility] Comment on above: Order Comment: , Vie ws (X-RAY, KNEE): Radiologic Protocol , Weight Bearing?: N , With or Without Brace/Cast/Collar: With , Views (X-RAY, KNEE): Radiologic Protocol , Weight Bearing?: N , With or Without Brace/Cast/Collar: With , , , Ordering Provider - AHSAN BINGHAM PA-C , KNEE RIGHT 1 OR 2 [facility] 07-06 KNEE RIGHT 1 OR 2 S [facility] Department of Radiology [address] [place] [phone] ======== Patient Name: MICHELLE BE : [...] , Exam: KNEE RIGHT 1 OR 2 [facility] ======== KNEE RIGHT 1 OR 2 [...] compartment Electronically signed by:Anup Ellison. Transcribed by: [email or web address], User Resident: Electronically Signed by: ANUP ELLISON @ 07/29/2018 03:41 PM Normal [facility] Comment on above: Order Comment: , Vie ws (X-RAY, KNEE): Radiologic Protocol , Weight Bearing?: N , With or Without Brace/Cast/Collar: With , Views (X-RAY, KNEE): Radiologic Protocol , Weight Bearing?: N , With or Without Brace/Cast/Collar: With , , , Ordering Provider - AHSAN BINGHAM PA-C , KNEE RIGHT 3 [facility] 9 KNEE RIGHT 3 [facility] Department of Radiology [address] [place] [phone] ======== Patient Name: MICHELLE BE : 1960 Sex: F Age: Race: White Pt. Location: Patient Status: Ordered Date: 07/15/2018 8:45:00 AM Completed Date: 07/15/2018 08:47 AM Requesting Provider: AHSAN BINGHAM Attending Provider: Report Copy To: Signs & Symptoms: S82.001A Unsp fracture of right patella, init for clos fx I10 History: [place] Comments: , , , Ordering Provider - [...] knee Electronically signed by:Anup Ellison. Transcribed by: [email or web address], User Resident: Electronically Signed by: ANUP ELLISON @ 07/15/2018 03:31 PM Normal [facility] Comment on above: Order Comment: , Mabel ws (X-RAY, KNEE): Radiologic Protocol , Weight Bearing?: N , With or Without Brace/Cast/Collar: With , Views (X-RAY, KNEE): Radiologic Protocol , Weight Bearing?: N , With or Without Brace/Cast/Collar: With , , , Ordering Provider - AHSAN BINGHAM PA-C , Operative Reporton 9 Operative Report MR#: [id number] S [facility] Pt. Name: Michelle Be Room #: [...] Duarte MD Date Trans: 07/03/2018 04:28 Monse/terry [id number] [place] [facility] *ANAEROBIC CULTUREon 07-02-2 019 *ANAEROBIC CULTURE Clinical Report: (D) Specimen/Source: SWAB/RT KNEE Collected: 07/02/2018 13:53 Status: Final Last Updated: 07/07/2018 08:02 CULT RES (Final) No Anaerobes Isolated 5 Days Normal [facility] Comment on above: Performed By: #### 3 0312 #### [address] *WOUND CULTUREon 07-02-2018 *WOUND CULTURE Clinical Report: (D) Specimen/Source: WOUND/INTRAOP SPEC Collected: 07/02/2018 13:53 Status: Final Last Updated: 07/07/2018 10:13 (1) #1 RT KNEE GRAM (Final) Rare Polys No Bacteria Seen CULT RES (Final) No Growth Day 5 Normal [facility] Comment on above: Order Comment: #1 RT KNEE Performed By: #### 3 0343 #### [address] KNEE RIGHT 1 OR 2 Son 06-05 KNEE RIGHT 1 OR 2 [facility] Department of Radiology [address] [place] [phone] ======== Patient Name: MICHELLE BE : [...] Electronically signed by:Debra Del Cid. Transcribed by: [email or web address], User Resident: Electronically Signed by: DEBRA DEL CID @ 07/02/2018 02:03 PM Normal [facility] Comment on above: Order Comment: ORIF VS PERCUTANEOUS FIXATION RIGHT PATELLA POC GLUCOSE LABon 07-02-2018 Glucose [Mass/Vol] 108 mg/dL High 70-100 [facility] Comment on above: Performed By: #### 8 5499 #### [facility] [address] [place] [address], [facility] APTTon 06-30-2018 aPTT Coag (Bld) [Time] 30.6 s Normal 25.0-35.0 Th e [facility] Comment on above: Result Comment: ALL [...] THIS PURPOSE. Performed By: #### 5 6101, 07468 #### [facility] [address] [place] [address], [facility] BASIC METABOLIC PANELon 06-05 Calcium [Mass/Vol] 9.7 mg/dL Normal 8.6-10.3 [facility] Comment on above: Performed By: #### 0 0071 #### [facility] [address] [place] [address], [facility] Chloride [Moles/Vol] 102 mmol/L Normal 98-107 [facility] Comment on above: Performed By: #### 0 0071 #### [facility] [address] [place] [address], [facility] CO2 [Moles/Vol] 28 mmol/L Normal 21-31 [facility] Comment on above: Performed By: #### 0 0071 #### [facility] [address] [place] [id number], [facility] Creatinine [Mass/Vol] 1.20 mg/dL Normal 0.60-1.20 [facility] Comment on above: Performed By: #### 0 0071 #### [facility] [address] [place] [address], [facility] GFR/1.73 sq M predicted among blacks MDRD (S/P/Bld) [Vol rate/Area] 56 ml/min/1.73sq m Abnormal >60 [facility] Comment on above: Performed By: #### 0 0071 #### [facility] [address] [place] [address], [facility] GFR/1.73 sq M predicted among non-blacks MDRD (S/P/Bld) [Vol rate/Area] 47 ml/min/1.73sq m Abnormal >60 [facility] Comment on above: Performed By: #### 0 0071 #### [facility] [address] [place] [address], [facility] Glucose [Mass/Vol] 97 mg/dL Normal 70-100 [facility] Comment on above: Performed By: #### 0 0071 #### [facility] [address] [place] [address], [facility] Potassium [Moles/Vol] 4.1 mmol/L Normal 3.5-5.1 [facility] Comment on above: Performed By: #### 0 0071 #### [facility] [address] Sodium [Moles/Vol] 137 mmol/L Normal 136-145 [facility] Comment on above: Performed By: #### 0 0071 #### [facility] [address] Urea nitrogen [Mass/Vol] 19 mg/dL Normal 7-25 [facility] Comment on above: Performed By: #### 0 0071 #### [facility] [address] CBC W/DIFFon 06-30-2018 ABS BASOPHILS 0.1 10*3/uL Normal 0.0-0.2 [facility] Comment on above: Performed By: #### 5 0103 #### [facility] [address] ABS IMM GRANS 0.0 10*3/uL Normal 0.0-0.2 [facility] Comment on above: Performed By: #### 5 102 #### [facility] [address] ABS NEUTROPHILS 6.4 10*3/uL Normal 1.6-7.6 [facility] Comment on above: Performed By: #### 5 102 #### [facility] [address] Basophils/100 WBC (Bld) 0.7 % Normal 0.0-1.0 [facility] Comment on above: Performed By: #### 5 102 #### [facility] [address] Eosinophils (Bld) [#/Vol] 0.2 10*3/uL Normal 0.0-0.5 [facility] Comment on above: Performed By: #### 5 102 #### [facility] [address] [place] [address], [facility] Eosinophils/100 WBC (Bld) 1.5 % Normal 0.0-6.0 [facility] Comment on above: Performed By: #### 5 0103 #### [facility] [address] [facility] [address] Erythrocyte distribution width (RBC) [Ratio] 14.4 % Normal 11.5-15.0 [facility] Comment on above: Performed By: #### 5 0103 #### [facility] [address] [facility] [address] Hematocrit (Bld) [Volume fraction] 40.6 % Normal 36.0-45.0 [facility] Comment on above: Performed By: #### 5 0103 #### [facility] [address] [facility] [address] Hemoglobin (Bld) [Mass/Vol] 13.3 g/dL Normal 12.0-15.0 [facility] Comment on above: Performed By: #### 5 0103 #### [facility] [address] [facility]. [address] IMMATURE GRANS 0.4 % Normal 0.0-1.0 [facility] Comment on above: Performed By: #### 5 0103 #### [facility] [address] [place] [address], [facility] Lymphocytes (Bld) [#/Vol] 2.6 10*3/uL Normal 1.2-4.0 The [facility] Comment on above: Performed By: #### 5 0103 #### [facility] [address] [place] [address], [facility] Lymphocytes/100 WBC (Bld) 26.5 % Normal 20.0-45.0 The [facility] Comment on above: Performed By: #### 5 3 #### [facility] [address] [place] [address], [facility] MCH (RBC) [Entitic mass] 27.4 pg Normal 27.0-33.0 The [facility] Comment on above: Performed By: #### 5 0103 #### [facility] [address] [place] [address], [facility] MCHC (RBC) [Mass/Vol] 32.8 g/dL Normal 32.0-35.0 The [facility] Comment on above: Performed By: #### 3 #### [facility] [address] [place] [address], [facility] MCV (RBC) [Entitic vol] 83.5 fL Normal 82.0-98.0 The [facility] Comment on above: Performed By: #### 102 #### [facility] [address] [place] [address], [facility] Monocytes (Bld) [#/Vol] 0.5 10*3/uL Normal 0.1-1.0 The [facility] Comment on above: Performed By: #### 5 102 #### [facility] [address] MONOS 5.0 % Normal 5.0-12.0 The [facility] Comment on above: Performed By: #### 5 102 #### [facility] [address] Neutrophils/100 WBC (Bld) 65.9 % Normal 40.0-72.0 The [facility] Comment on above: Performed By: #### 102 #### [facility] [address] [place] [address], [facility] Nucleated RBC/100 WBC (Bld) [Ratio] 0 % Normal 0-0 [facility] Comment on above: Performed By: #### 102 #### [facility] [address] [place] [address], [facility] PLAT CNT 290 10*3/uL Normal 150-400 The [facility] Comment on above: Performed By: #### 5 0103 #### [facility] [address] [facility] [place] [address], [facility] RBC (Bld) [#/Vol] 4.86 10*6/uL Normal 3.80-5.00 The [facility] Comment on above: Performed By: #### 5 0103 #### [facility] [address] [place] [address], [facility] WBC (Bld) [#/Vol] 9.68 10*3/uL Normal 4.00-10.60 The [facility] Comment on above: Performed By: #### 5 0103 #### [facility] [address] [place] [address], [facility] KNEE RIGHT 1 OR 2 VWSon 06-05 KNEE RIGHT 1 OR 2 S [facility] Department of Radiology [address] [place] [phone] ======== Patient Name: MICHELLE BE : [...] Electronically signed by:Debra Del Cid. Transcribed by: [email or web address], User Resident: Electronically Signed by: DEBRA DEL CID @ 06/30/2018 11:52 AM Normal [facility] Comment on above: Order Comment: , Mabel ws (X-RAY, KNEE): Radiologic Protocol , Weight Bearing?: N , With or Without Brace/Cast/Collar: With , Views (X-RAY, KNEE): Radiologic Protocol , Weight Bearing?: N , With or Without Brace/Cast/Collar: With , , , Ordering Provider - AHSAN BINGHAM PA-C , PROTHROMBIN TIMEon 9 INR Coag (PPP) [Relative time] 0.98 {INR} Normal 0.91-1.16 [facility] Comment on above: Result Comment: ACCC [...] CHEST 1995;108:[id number]-246S. Performed By: #### 5 6101, [address] #### [address] PT Coag (PPP) [Time] 13.0 s Normal 12.3-14.8 [facility] Comment on above: Result Comment: ALL RESULTS MUST BE INTERPRETED WITH RESPECT TO BLOOD DRAWING ARTIFACT OR DILUTION ERROR OF ANTICOAGULANT AT THE TIME OF SAMPLING. Performed By: #### 5 6101, [id number] #### [address] KNEE RIGHT 3 [facility] 9 KNEE RIGHT 3 S [facility] Department of Radiology [address] [place] [phone] ======== Patient Name: MICHELLE BE : 1960 Sex: F Age: Race: White Pt. Location: 84 Patient Status: O Ordered Date: 06/15/2018 1:35:00 PM Completed Date: 06/15/2018 01:34 PM Requesting Provider: AMPARO ZHANG Attending Provider: AMPARO ZHANG Report Copy To: ADELAIDA CARRION Signs & Symptoms: M17.11 Unilateral primary osteoarthritis, right knee I10 History: [place] Comments: , Weight Bearing?: Y , Weight [...] effusion Electronically signed by:Anup Ellison. Transcribed by: [email or web address], User Resident: Electronically Signed by: ANUP Mcnair PATITO @ 06/15/2018 03:50 PM Normal [facility] Comment on above: Order Comment: , Isaiah ght Bearing?: Y , Weight Bearing?: Y , , , Ordering Provider - AMPARO ZHANG PA-C , Vital Signs Date Time Vital Sign Value Performing Clinician Facility 05-18-2023 16:30-0500 Body height 162.6 cm Adelaida Aichholz [employer] Work Phone: [facility] 05-18-2023 16:30-0500 Body mass index (BMI) [Ratio] 47.89 kg/m2 Adelaida Aichholz [employer] Work Phone: [facility] 05-18-2023 16:30-0500 Body temperature 97.3 [degF] Adelaida Aichholz [employer] Work Phone: [facility] 05-18-2023 16:30-0500 Body weight 126.55 kg Adelaida Aichholz [employer] Work Phone: [facility] 05-18-2023 16:30-0500 Diastolic blood pressure 80 mm[Hg] Adelaida Aichholz [employer] Work Phone: [facility] 05-18-2023 16:30-0500 Heart rate 76 /min Adelaida Aichholz [employer] Work Phone: [facility] 05-18-2023 16:30-0500 Respiratory rate 19 /min Adelaida Aichholz [employer] Work Phone: [facility] 05-18-2023 16:30-0500 SaO2% (BldA) [Mass fraction] 97 % Adelaida Aichholz [employer] Work Phone: [facility] 05-18-2023 16:30-0500 Systolic blood pressure 134 mm[Hg] Adelaida Aichholz [employer] Work Phone: [facility] 03-23-2023 12:10-0500 Diastolic blood pressure 98 mm[Hg] Adelaida Aichholz Work Phone: [facility] 03-23-2023 12:10-0500 Heart rate 76 /min Adelaida Aichholz Work Phone: [facility] 03-23-2023 12:10-0500 Respiratory rate 18 /min Adelaida Aichholz Work Phone: [facility] 03-23-2023 12:10-0500 SaO2% (BldA) [Mass fraction] 99 % Adelaida Yinghholz Work Phone: [facility] 03-23-2023 12:10-0500 Systolic blood pressure 162 mm[Hg] Adelaida Aichholz Work Phone: [facility] 03-23-2023 10:53-0500 Body height 162.56 cm Adelaida Yinghholz Work Phone: [facility] 03-23-2023 10:53-0500 Body weight 125.64 kg Adelaida Sousaholz Work Phone: [facility] 12-19-2022 14:55-0400 Body height 162.56 cm Rosemary Marita Other [employer] Other 12-19-2022 14:55-0400 Body mass index (BMI) [Ratio] 47.85 kg/m2 Rosemary Kirkland Other [employer] Other 12-19-2022 14:55-0400 Body temperature 97.8 [degF] Rosemary Kirkland Other [employer] Other 12-19-2022 14:55-0400 Body weight 126.46 kg Rosemary Kirkland Other [employer] Other 12-19-2022 14:55-0400 Respiratory rate 20 /min Rosemary Kirkland Other [facility] [employer] Other 12-19-2022 14:55-0400 SaO2% (BldA) [Mass fraction] 95 % Rosemary Marita Other [employer] [facility] [employer] Other 11-20-2022 13:12-0400 Body temperature 97.7 [degF] Adelaida Aichholz Work Phone: [facility] 11-20-2022 13:12-0400 SaO2% (BldA) [Mass fraction] 96 % Adelaida Aichholz Work Phone: [facility] 11-20-2022 07:44-0400 Diastolic blood pressure 90 mm[Hg] Adelaida Aichholz Work Phone: [facility] 11-20-2022 07:44-0400 Heart rate 103 /min Adelaida Aichholz Work Phone: [facility] 11-20-2022 07:44-0400 Systolic blood pressure 152 mm[Hg] Adelaida Aichholz Work Phone: [facility] 11-19-2022 20:00-0400 Respiratory rate 18 /min Adelaida Aichholz Work Phone: [facility] 11-18-2022 15:18-0400 Body height 162.56 cm Adelaida Aichholz Work Phone: [facility] 11-17-2022 09:00-0400 Body weight 122.92 kg Adelaida Aichholz Work Phone: [facility] Encounters Encounter Date Encounter Type Care Provider Facility Start: 10-21-2023 End: 10-21-2023 ambulatory ADELAIDA AICHHOLZ Not Available Start: 10-14-2023 End: 10-14-2023 ambulatory SONAM WILLIAMSON Not Available Start: 10-05-2023 End: 10-05-2023 ambulatory ADELAIDA AICHHOLZ Not Available Start: 09-21-2023 End: 09-21-2023 ambulatory ADELAIDA AICHHOLZ Not Available Start: 08-20-2023 ambulatory Eduardo Acevedo acility:[facility] Start: 08-17-2023 End: 08-17-2023 ambulatory ADELAIDA AICHHOLZ Not Available Start: 07-23-2023 End: 07-23-2023 ambulatory ADELAIDA AICHHOLZ Not Available Start: 07-07-2023 End: 07-07-2023 ambulatory ADELAIDA AICHHOLZ Not Available Start: 06-29-2023 End: 06-30-2023 ambulatory Syeda Mancuso MD Facility:[facility] Start: 05-22-2023 End: 05-22-2023 ambulatory ASHLEIGH HINES Not Available Start: 05-21-2023 Refill Adelaida Kelsiez SKILLED NURSING FACILITIES PROFESSIONAL Work Phone: [facility] Comment on above: Acute cystitis with hematuria (Primary Dx) Start: 05-18-2023 End: 05-18-2023 Office outpatient visit 25 minutes Adelaida Kelsiez SKILLED NURSING FACILITIES PROFESSIONAL Work Phone: [facility] Comment on above: Encounter for annual wellness visit (AWV) in Medicare patient (Primary Dx); OSMANY (obstructive sleep apnea); Chronic pain disorder; Gastroesophageal reflux disease, unspecified whether esophagitis present; Overactive bladder; Lower extremity edema; Pre-diabetes; Morbid obesity ([facility]); Yeast infection of the skin; Tobacco dependence; Mood disorder ([facility]); Primary hypertension ([facility]); Left hip pain; Open wound of anterior abdominal wall, initial encounter Start: 05-18-2023 End: 05-18-2023 ambulatory ADELAIDA AICHHOLZ Not Available Start: 05-18-2023 Bamboo flowsheet Adelaida Carrion SKILLED NURSING FACILITIES PROFESSIONAL Work Phone: [facility] Start: 05-18-2023 Bamboo flowsheet Adelaida Sheyla SKILLED NURSING FACILITIES PROFESSIONAL Work Phone: [facility] Start: 05-18-2023 End: 05-18-2023 Patient encounter procedure Adelaida Aichholz SKILLED NURSING FACILITIES PROFESSIONAL Work Phone: [facility] Start: 03-25-2023 End: 03-25-2023 ambulatory ADELAIDA CARRION Not Available Start: 03-23-2023 End: 03-23-2023 Admission to same day surgery center Adelaida Carrion Work Phone: [facility] Work Phone: Start: 03-23-2023 End: 03-23-2023 ambulatory Adelaida Carrion Work Phone: [facility] Work Phone: Start: 03-11-2023 End: 03-11-2023 ambulatory KALLI INTERIANO Not Available Start: 02-20-2023 End: 02-20-2023 ambulatory ASHLEIGH HINES Not Available Start: 02-12-2023 End: 02-12-2023 ambulatory Jace Graham Other [employer] Other Start: 02-12-2023 Telephone encounter Jace CORADO G Projection Printer Start: 12-19-2022 End: 12-19-2022 ambulatory Rosemary Kirkland Other [place] [employer] Other Start: 12-19-2022 Office outpatient ne w 10 minutes Rosemary Kirkland [facility] [place] Start: 11-17-2022 End: 11-20-2022 Evaluation and management of inpatient Adelaida Carrion Work Phone: [facility] Work Phone: Start: 09-04-2022 ambulatory ARIAN JOHNSON . Facili ty:H1 Start: 08-26-2022 ambulatory HERBERTH CRAMER . Facility:H1 Start: 08-08-2022 End: 08-09-2022 ambulatory REQUIREMENTS ENGINEER ADELAIDA YINGMarquesGERONIMOZ Facility:H1 Start: 07-25-2022 End: 07-26-2022 ambulatory REQUIREMENTS ENGINEER ADELAIDAMonse CARRION Facility:H1 Start: 07-15-2022 End: 07-15-2022 [...] Facility:H1 Start: 08-20-2021 End: 08-20-[address] FIAN ZIMMER . Facility:H1 Start: 07-02-2018 End: 07-03-2018 Patient encounter procedure SUKI EBRAHEIM Facility:[facility] Procedures Date Procedure Procedure Detail Performing Clinician Start: 03-23-2023 Screening colonoscopy L oneal Sheyla Work Phone: Start: 03-23-2023 Colonoscopy Adelaida Jayden ramos SKILLED NURSING FACILITIES PROFESSIONAL Work Phone: Start: 09-15-2022 Mammography Adelaida ramos SKILLED NURSING FACILITIES PROFESSIONAL Work Phone: Start: 08-28-2022 Microscopic observat ion [Identifier] in Cervix by Cyto stain Adelaida Carrion SKILLED NURSING FACILITIES PROFESSIONAL Work Phone: Start: 07-02-2018 ANESTH KNEE AREA [...] 08/17/2023 9:20 AM EDT [facility] [address] [place] [address] Adelaida Carrion NP [address] [place] [address] [facility] Start: 05-22-2023 End: 05-22-2023 Patient encounter procedure 05/22/2023 8:45 AM EST Office Visit [facility] [address] [facility] [address] [place] [address] Ashleigh Hines PA [address] [place] [address] [facility] Start: 05-18-2023 End: 05-18-2023 Patient encounter procedure 05/18/2023 4:30 PM EST Office Visit [facility] [address] [place] [phone] Adelaida Carrion NP [address] [place] [address] Arrived [facility] Comment on above: Arrived Start: 05-18-2023 End: 05-18-2024 XR Hip - left 3 Views XR hip left 2 or 3 views Imaging Routine Left hip pain Expected: 05/18/2023 (Approximate), Expires: 05/18/2024 [facility] Work Phone: Comment on above: Expected: 05/18/2023 (Approximate), Expires: 05/18/2024 Start: 03-23-2023 [facility] Start: 11-20-2022 [facility] Start: 11-18-2022 Referral to clinical hospital ward clerk [facility] Start: 11-17-2022 Hospital admission [facility] Start: 11-17-2022 [facility] Start: 12-06-1991 Screening for malignant neoplasm of cervix HPV/Cotest [facility] Start: 1960 Medicare Annual Wellness (AWV) Medicare Annual Wellness (AWV) [facility] Start: 1960 Screening for malignant neoplasm of colon [facility] Patient Education [facility] Work Phone: Patient referral [facility] Work Phone: [facility] Immunizations Immunization Date Immunization Notes Care Provider Fa cili 02-13-2023 influenza, injectabl e, quadrivalent, preservative free Adelaida Carrion SKILLED NURSING FACILITIES PROFESSIONAL Work Phone: [facility] 02-13-2023 SARS-COV-2 (COVID-19 ) vaccine, mRNA, spike protein, LNP, PF, 50 mcg/0.5 mL Adelaida Carrion SKILLED NURSING FACILITIES PROFESSIONAL Work Phone: [facility] 02-19-2022 diphtheria, tetanus toxoids and pertussis vaccine Adelaida Carrion SKILLED NURSING FACILITIES PROFESSIONAL Work Phone: [facility] 03-02-2021 Moderna SARS-CoV-2 Vaccination Adelaida Carrion SKILLED NURSING FACILITIES PROFESSIONAL Work Phone: [facility] 08-24-2020 Moderna SARS-CoV-2 Vaccination Adelaidamonse Carrion SKILLED NURSING FACILITIES PROFESSIONAL Work Phone: [facility] 07-27-2020 Moderna SARS-CoV-2 Vaccination Adelaidamonse Carrion SKILLED NURSING FACILITIES PROFESSIONAL Work Phone: [facility] 05-28-2018 influenza, injectabl e, quadrivalent, preservative free Adelaida Carrion Work Phone: [facility] Payers Date Payer Category Payer Medicare [id number] 2022 Private Health Insurance [id number] 2022 Self-pay [id number] 2022 Medicare [id number] 2008 Unknown [id number] 1961 Unknown [id number] 2.16.8 40.1.345399.3.579.2.647 1961 Unknown [id number] 2.16.84 0.1.879266.3.579.2.593 1961 Unknown [id number] 2.16.84 0.1.444219.3.579.2.593 1961 Unknown [id number] 2.16.84 0.1.234109.3.579.2.593 1961 Unknown [id number] 2.16.84 0.1.713583.3.579.2.593 1961 Unknown [id number] 2.16.84 0.1.938368.3.579.2.593 1961 Unknown [id number] 2.16.84 0.1.273300.3.579.2.593 1961 Unknown [id number] 2.16.84 0.1.671471.3.579.2.593 1961 Unknown [id number] 2.16.84 0.1.981950.3.579.2.593 1961 Unknown [id number] 2.16.84 0.1.093054.3.579.2.593 1961 Unknown [id number] 2.16.84 0.1.012317.3.579.2.593 1961 Unknown [id number] 2.16.84 0.1.902856.3.579.2.593 1961 Unknown [id number] 2.16.84 0.1.036706.3.579.2.593 1961 Unknown [id number] 2.16.84 0.1.005127.3.579.2.593 1961 Unknown [id number] 2.16.84 0.1.719850.3.579.2.593 1961 Unknown [id number] 2.16.84 0.1.043968.3.579.2.593 1961 Unknown [id number] 2.16.84 0.1.070793.3.579.2.593 1961 Unknown [id number] 2.16.84 0.1.667564.3.579.2.593 1961 Unknown [id number] 2.16.84 0.1.316340.3.579.2.593 1961 Unknown [id number] 2.16.84 0.1.408441.3.579.2.593 1961 Unknown [id number] 2.16.84 0.1.894245.3.579.2.593 1961 Unknown [id number] 2.16.84 0.1.465745.3.579.2.593 1961 Unknown [id number] 2.16.84 0.1.203899.3.579.2.593 1961 Unknown [id number] 2.16.84 0.1.727440.3.579.2.593 1961 Unknown [id number] 2.16.84 0.1.896425.3.579.2.593 1961 Unknown [id number] 2.16. 840.1.474023.3.579.2.196 1961 Unknown [id number] 2.16.84 0.1.806513.3.579.2.1259 1961 Unknown [id number] 2.16.84 0.1.942632.3.579.2.1259 1961 Unknown [id number] 2.16.84 0.1.222318.3.579.2.1259 1961 Unknown [id number] 2.16.84 0.1.244515.3.579.2.1259 1961 Unknown [id number] 2.16.84 0.1.499210.3.579.2.1259 1961 Unknown [id number] 2.16.84 0.1.249571.3.579.2.1259 1961 Unknown [id number] 2.16.84 0.1.897251.3.579.2.1259 1961 Unknown [id number] 2.16.84 0.1.902235.3.579.2.1259 1961 Unknown [id number] 2.16.84 0.1.464980.3.579.2.1259 1961 Unknown [id number] 2.16.840 .1.152812.3.579.2.1259 1961 Unknown [id number] 2.16.840 .1.326418.3.579.2.1259 1961 Unknown [id number] 2.16.840 .1.530061.3.579.2.1259 1959 Medicare [id number] 1959 Unknown [id number] Unknown [id number] 2.16.8 40.1.526981.3.579.2.531 Unknown [id number] 2.16.8 40.1.939188.3.579.2.531 Unknown [id number] 2.16.8 40.1.684971.3.579.2.531 Social History Date Type Detail Facility Start: 11-18-2022 End: 02-09-2023 Tobacco smoking status NHIS Ex-smoker (finding) [facility] Start: 1960 Sex Assigned At Female [facility] Start: 03-25-2023 End: 05-18-2023 Sex Assigned At [facility] End: 04-06-2016 History of tobacco use Current smoker [facility] End: 04-06-2016 History of tobacco use Cigarette Smoker [facility] Start: 02-09-2023 End: 05-18-2023 Cigarettes smoked current (pack per day) - Reported 1 [facility] Start: 02-09-2023 Tobacco use and exposure Smokeless tobacco non-user [facility] Start: 05-18-2023 Alcohol [...] Facility 11-20-2022 Functional status Patient at Baseline [facility] Work Phone: Mental Status Date Assessment Result Facility 11-20-2022 Cognitive function Cognitive Sta tus Patient is Progressing Toward Baseline [facility] Work Phone: Clinical Notes 10-03-2021 to 05-18-2023 Adelaida Carrion NP - 05/18/2023 5:49 PM ESTAdelaida Carrion, BRIANA - 05/18/2023 5:47 PM ESTAdelaida Carrion, SKILLED NURSING FACILITIES PROFESSIONAL - 05/18/2023 5:20 PM ESTAdelaida Carrion, BRIANA [...] (BARIATRIC MULTIVITAMINS/IRON PO) Bariatric Multivitamins/Iron nystatin (Mycostatin) 984662 UNIT/GM powder 1 application , Topical, 2 [...] Anxiety 05/18/2023 Bipolar disorder with severe depression ([facility]) 05/18/2023 Brain vascular malformation Chronic pain disorder Colon polyps Constipation Degenerative cervical disc Degenerative lumbar disc Depression ([facility]) 05/18/2023 Diastolic dysfunction Dizziness 05/18/2023 Dysphagia Fibromyalgia Gastrocnemius equinus GERD (gastroesophageal reflux disease) Heart murmur Hematoma of right breast Hemiparesis, right ([facility]) Hemorrhoid int/external hemorrhoids Hiatal hernia Iron deficiency Left foot pain 03/25/2023 Lower extremity edema Mood disorder ([facility]) mixed mood disorder OSMANY (obstructive sleep apnea) Osteoporosis ([facility]) Overactive bladder Pre-diabetes Primary hypertension ([facility]) 03/25/2023 PTSD (post-traumatic stress disorder) ([facility]) Restless leg Right knee pain Right sided weakness S/P bariatric surgery Shingles Slurred speech Stroke ([facility]) 2018 Tenosynovitis, de Quervain Thoracic back pain, [...] bladder Lower extremity edema Pre-diabetes Mood disorder ([facility]) Continue with Psych for management Tobacco dependence Yeast infection of the skin Encounter for annual wellness visit (AWV) in Medicare patient Reviewed Ht/Wt/BMI Recommend eye exam yearly Recommend dental exams twice a year Balance work/leisure activities Exercises is recommended most days of the week (appropriate as chronic conditions allow) Follow up yearly and prn documented in this encounter [facility] 03-23-2023 Procedure note [facility] 12-19-2022 Evaluation note Encounter Date Diagnosis Assessment Notes Dec, Skin candidiasis (ICD-10 - B37.2) Drink plenty fluids, get plenty of rest. Continue home medications as prescribed. Take the Diflucan as prescribed until gone. Follow-up with your family physician if no improvement in 2 to 3 days [facility] Other 08-17-2023 Discharge summary Author Eduardo bautista [facility] November 20, 2022 6:38am Note Date/Time November 20, 2022 6: 38am [facility] [address] [place] [address] Discharge Summary Signed Patient: Michelle Be MR#: [id number] : 1960 Acct:[id number] Age/Sex: 61 / F Adm Date: 3 Loc: Room: [address] [place] [address]: Gaudencio Monk MD Copies to: [...] time.? She reports moving to [place] from [place] in 2011 and was then diagnosed with bipolar disorder at [facility] in [place], where she still follows with a therapist.? Shereports that she has been with 7 therapists in the last 9 years and is currentlycompleting EMDR with her current therapist. Past hospitalizations: Her most recent hospitalization was 5 years ago [facility] in [place] for the same feeling she is experiencing [...] worked since 2010 due to her fibromyalgia.? 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 Relationships: Reports having people who [...] Tablet 1 tab PO QID Follow Up: [facility] [Outside] [facility] [Outside] ( manager of selection and assessment: (Insert date/time here) Therapy:? (insert date/time here) Intake: (Insert date/time here) Please bring a copy of your photo ID, insurance card, and proof of household income.? Psychiatry: (Insert date/time here) Group: (Insert date/time here ) ) Adelaida Carrion [Primary Care Provider] - (Please contact for any medical needs) Documented By: Eduardo Monk MD 3 [id number] Signed By: <Electronically signed by Eduardo Monk MD> 11/20/22 0638 [facility] Work Phone: 1(599) 167-511808-16-2023 Progress note Author Eduardo bautista [facility] November 19, 2022 6:25am Note Date/Time November 19, 2022 6: 25am [facility] [address] [place] [address] Psychiatry Progress Note Signed Patient: Michelle Be MR#: [id number] : 1960 Acct:[id number] Age/Sex: 61 / F Adm Date: 3 Loc: Room: [address] [place] [address] Type : ADM IN Attending Dr: Gaudencio [...] signed by Eduardo Monk MD> 11/19/22 06 [facility] Work Phone: 1(371) 303-332508-15-2023 Progress note Author Eduardo bautista [facility] November 18, 2022 11:01am Note Date/Time November 18, 2022 10 :11am [facility] [address] [place] [address] Psychiatry Progress Note Signed Patient: Michelle Be MR#: [id number] : 1960 Acct:[id number] Age/Sex: 61 / F Adm Date: 3 Loc: Room: [address] [place] [address] Type : ADM IN Attending Dr: Gaudencio [...] by requesting a schedule 2 referring to [place] for pain management specifically every 4-6 hours [...] MD DA Rangel> 11/18/22 1011 [facility] Work Phone: 1(687) 528-157908-14-2023 History and physical note Author Eduardo bautista [facility] November 17, 2022 12:48pm Note Date/Time November 17, 2022 12 :48pm [facility] [address] [place] [address] Psychiatry H&P Signed Patient: Michelle Be MR#: [id number] : 1960 Acct:[id number] Age/Sex: 61 / F Adm Date: 3 Loc: Room: [address] [place] [address] Type: ADM IN Attending Dr: Gaudencio Monk [...] time. She reports moving to [place] from [place] in 2011 and was then diagnosed with bipolar disorder at [facility] in [place], where she still follows with a therapist. Shereports that she has been with 7 therapists in the last 9 years and is currentlycompleting EMDR with her current therapist. 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 Relationships: Reports having people who [...] signed by Eduardo Monk MD> 11/17/22 1248 [facility] Work Phone: 1(261) 776-926403-23-2023 NoteCONSULTATION CONSULTATION DATE: 06/26/2022 To: Nurse Carrion [...] L5-S1 facet joint injection under fluoroscopic guidance.[facility] [id number] NotePROCEDURE: XR SHOULDER RT 2V or > [...] Electronically authenticated by: KINGSLEY CLEMENTS Date: 2022-05-09 09:21[facility]01-23-2023 NotePROCEDURE: XR WRIST LT MIN 3 V [...] Electronically authenticated by: KINGSLEY CLEMENTS Date: 2022-04-28 13:31[facility]12-29-2022 NoteCONSULTATION CONSULTATION DATE: 04/03/2022 HISTORY OF PRESENT [...] her in three months, unless otherwise indicated.[facility] [id number] NoteCONSULTATION CONSULTATION DATE: 01/02/2022 This is a [...] [facility] in [place] for the compounded cream. She needs a [...] in three months' time unless otherwise indicated.[facility] [id number] NotePROCEDURE: XR ANKLE RT MIN 3 VIEWS, [...] Electronically authenticated by: KINGSLEY CLEMENTS Date: 2022-01-01 13:11[facility]09-28-2022 NotePROCEDURE: XR ANKLE RT MIN 3 [...] Electronically authenticated by: KINGSLEY CLEMENTS Date: 2022-01-01 13:11[facility]08-18-2022 NotePROCEDURE: XR FOOT RT MIN 3 VIEWS HISTORY: Pain in right foot , chronic COMPARISON: XR foot right 2020 FINDINGS: BONES:No fracture, dislocation, bone lesion. Small calcaneal degenerative enthesophytes. SOFT TISSUES:No visible soft tissue swelling. EFFUSION:None visible. OTHER: Negative. IMPRESSION: 1. No acute bone abnormality or significant degenerative joint disease. Electronically authenticated by: KINGSLEY CLEMENTS Date: 2021-11-21 16:13[facility]06-30-2022 NoteCONSULTATION CONSULTATION DATE: 10/03/2021 This is [...] patient agrees with the plan of care. [facility] Signed and Approved by: ZELDA MCDANIEL . 10/10/2021 10:22:00[facility] Diagnosis Onset Date Resolution Status Allergies acute Bipolar 2 disorder acute Hypertension acute Morbid obesity with BMI of 45.0-49.9, adult acute OSMANY (obstructive sleep apnea) acute Restless legs syndrome acute [facility] Work Phone: Evaluation noteNo InformationNort [employer] Other Evaluation noteNo assessment information available [facility] Work Phone: Evaluation note* Diagnosis Encounter [...] physical note Author Jace Graham [facility] March 23, 2023 11:21am Note Date/Time March 23, 2023 11:21am [facility] [address] [place] [address] Gastroenterology H&P Signed Patient: Michelle Be MR#: [id number] : 1960 Acct:[id number] Age/Sex: 62 / F Adm Date: 3 Loc: Room: Type: [facility] Attending Dr: Jace Graham MD [...] signed by Jace Graham MD> 03/23/23 1121 [facility] Work Phone: History general Narrative - [...] see above surg Hospitalization History stroke 2018 [facility] Other Hospital Discharge instructions Additional Instructions Regular Diet No Activity [facility]ions[facility] Work Phone: Hospital Discharge instructions Additional [...] NOT operate machinery such as power tools, [employer] mowers, snow [employer], sewing machines, etc. for 24 hours. - [...] years. -Follow up with PCP. -Office number [phone].[facility] Work Phone: Summary Purpose Family History [...] content) DATE CREATED AUTHOR 02/18/2019 [facility] DATE CREATED AUTHOR AUTHOR'S ORGANIZ ATION 11/15/2021 Chavez Josemanuel [facility] DATE CREATED AUTHOR AUTHOR'S ORGANIZ ATION 08/16/2022 [facility] DATE CREATED AUTHOR AUTHOR'S ORGANIZ ATION 08/11/2023 [facility] DATE CREATED AUTHOR AUTHOR'S ORGANIZ ATION 09/27/2023 [facility] DATE CREATED AUTHOR AUTHOR'S ORGANIZ ATION 10/25/2023 [facility] dical Specialists EPIC Care Teams (unrecognized [...] MD Other Provider Active Adelaida Marsh , CHEF DE CUISINE Other Provider Active Jessica Murillo , Other [...] MD Other Provider Active Joellen Le , SKILLED NURSING FACILITIES PROFESSIONAL-C Other Provider Active Severo Yancey MD Other Provider Active Rao Webber MD Other Provider Active Yuan Shi MD Other Provider Active Delroy Ramirez MD Other Provider Active Berta Comer , DO Other Provider Active Negrito Ruiz , DO Other Provider Active Lacho Singh , DO Other Provider Active Rachana Hobson , CHEF DE CUISINE Other Provider Active Rob Lake , DO Other Provider Active Jeff Alvarez MD Other Provider Active Urmila Rinaldi , CHEF DE CUISINE Other Provider Active Bina Mayberry , CHEF DE CUISINE Other Provider Active Mir Bradford MD Other Provider Active Te Da Silva MD Other Provider Active Debra Landaverde , JOHANN Other Provider Active Team Status: Inactive Member Role Status Dates Adelaida Carrion Primary Care Provider Active Jace Graham MD Attending Provider Active Buyer Agent Relationship Specialty Start Date End Date José Luis Roberts MD [address] [place] [phone] PCP - General Family Medicine 05/18/23 Adelaida Carrion NP [address] [place] [address] Referring Physician Nurse Practitioner 10/14/22 Buyer Agent Relationship Specialty Start Date End Date José Luis Roberts MD [address] [place] [address] PCP - General Family Medicine 05/18/23 Adelaida Carrion NP [address] [place] [phone] Referring Physician Nurse Practitioner 10/14/22 Buyer Agent Relationship Specialty Start Date End Date José Luis Roberts MD [address] [place] [phone] PCP - General Family Medicine 05/18/23 Adelaida Carrion NP [address] [place] [address] Referring Physician Nurse Practitioner 10/14/22 REASON FOR [...] BE BASED ON THE PRIMARY CLINICAL RECORDS. [facility]. provides no warranty or guarantee of the accuracy or completeness of information in this document.
[2023-11-03 06:41] VITALS: BP 117/75; PULSE 77; TEMP 36.6; O2SAT 98
[2023-11-03] MEDS: 0.9 % SODIUM CHLORIDE 500 ML IV (07:02)
[2023-11-03] MEDS: BUPIVACAINE HCL 0.25% PF 25 MG/10 ML VIAL 4 ML INJ (07:53)
[2023-11-03] MEDS: LIDOCAINE HCL 2% 400 MG/20 ML MDV 4 ML INJ (07:53)
[2023-11-03] MEDS: METHYLPREDNISOLONE ACETATE 40 MG/ML VIAL INJ (07:54)
[2023-11-03 07:55] VITALS: BP 118/83; PULSE 77; TEMP 36.5; O2SAT 94
[2023-11-03 07:58] VITALS: BP 123/79; PULSE 77; O2SAT 94
--- NOTE | 2023-11-03 09:00 | P.ON_ITS ---
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 Post lesioning injection of 2 mL each of 0.25% Marcaine and 2% lidocaine with Depo-Medrol 40mg. 0.5 to 1 mL injected at each site IV in place yes If Intravenous fluids: NS at KVO Anesthesia local 2% lidocaine for Anesthesia Other: MAC Timeout process compliant After informed consent obtained. Patient brought to the procedure room placed in the prone position skin overlying the area was prepped and draped in a sterile fashion using betadine. 25 gauge needle was used to create a skin wheal over each of the targeted areas utilizing 2% lidocaine. A rhizotomy needle with a 10 mm active tip was inserted over each of the anesthetized areas and directed towards four different areas in the distribution of the lateral cutaneous branches of the iliohypogastric nerve, accomplished under fluoroscopic guidance. After encountering the same we had positive sensory stimulation, negative motor stimulation was noted. lesions were then created. Post lesioning, steroid solution was injected needles removed. Patient was transferred to recovery room in stable condition to be discharged home after meeting criteria. Anesthesia: MAC Surgeon: Tejal Montaño Condition: stable Disposition: PACU
== END 2023-11-03 08:20 | disposition home or self-care (01) ==
LOC: SURGOUT 06:29
PROVIDERS: PCP Nurse Practitioner; Visit Provider Anesthesiology Pain Medicine
DX: G57.81 Other specified mononeuropathies of right lower limb (principal)
CPT/HCPCS: 64640; 77002; J0665; J1010; J2704

== ENCOUNTER 2023-12-02 13:20 | Outpatient (OUT) | payer MEDICARE, SELFPAY ==
--- NOTE | 2023-12-02 13:40 | P.CN_ITS ---
Consult Note: HPI Data of Consult Patient: known to practice within the last 3 years Requesting Physician: Bhakti Culp NP Primary Care Provider: Adelaida Carrion NP Consult Narrative Reason for consult: f/u Narrative: Nasim Ingram a pleasant 62 year old female presents for evaluation and management of chronic low back pain and left hip pain. Pain 4/10 constant pain in middle and low back. Pain increased with standing, walking, housework, lifting, stairs, bending, and activity. Patient following with Dr Díaz for consideration of right knee replacement, pending dental clearance. Patient finds mild benefit from medication regimen. Patient recently underwent bilateral LCIH nerve RFA greater than 80% improvement ongoing. Patient continues to have moderate to severe middle and low back pain without numbness tingling or weakness. cc:: CC: Bhakti Culp NP Review of Systems ROS Status of ROS 10 or more systems reviewed and unremark able except as noted in history and below Musculoskeletal Reports: back pain, joint pain and muscle cramps; Denies: neck pain or extremity pain PFSH [facility] Medical History FH: bariatric surgery ?Z84.89 - Family history of other specified conditions (ICD-10) Upper back pain ?M54.9 - Dorsalgia, unspecified (ICD-10) Osteoarthritis ?M19.90 - Unspecified osteoarthritis, unspecified site (ICD-10) Neck pain ?M54.2 - Cervicalgia (ICD-10) Low back pain ?M54.50 - Low back pain, unspecified (ICD-10) Fibromyalgia ?M79.7 - Fibromyalgia (ICD-10) Bipolar 1 disorder ?F31.9 - Bipolar disorder, unspecified (ICD-10) Acid reflux ?K21.9 - Gastro-esophageal reflux disease without esophagitis (ICD-10) Obesity ?E66.9 - Obesity, unspecified (ICD-10) Sleep apnea ?G47.30 - Sleep apnea, unspecified (ICD-10) Heart murmur ?R01.1 - Cardiac murmur, unspecified (ICD-10) High cholesterol ?E78.00 - Pure hypercholesterolemia, unspecified (ICD-10) Hypertension ?I10 - Essential (primary) hypertension (ICD-10) Surgical History S/P dilatation and curettage ?Z98.890 - Other specified postprocedural states (ICD-10) H/O breast biopsy ?Z98.890 - Other specified postprocedural states (ICD-10) S/P ORIF (open reduction internal fixation) fracture ?Z98.890 - Other specified postprocedural states (ICD-10) ?Z87.81 - Personal history of (healed) traumatic fracture (ICD-10) Hx of laparoscopic gastric banding ?Z98.84 - Bariatric surgery status (ICD-10) History of tonsillectomy and adenoidectomy ?Z90.89 - Acquired absence of other organs (ICD-10) History of appendectomy ?Z90.49 - Acquired absence of other specified parts of digestive tract (ICD- 10) History of hemilaminectomy ?Z98.890 - Other specified postprocedural states (ICD-10) History of cholecystectomy ?Z90.49 - Acquired absence of other specified parts of digestive tract (ICD- 10) Previous section ?Z98.891 - History of uterine scar from previous surgery (ICD-10) Social History Smoking status: Former smoker Meds Home Medications and Allergies Home Medications ?Medication ?Instructions ?Recorded ?Confirmed ?Type amlodipine 10 mg tablet (Norvasc) 10 mg PO DAILY 09/10/22 11/03/23 History biotin 1 mg capsule 5 mg PO DAILY 09/10/22 11/04/23 History cariprazine 4.5 mg capsule 4.5 mg PO Q24H 09/10/22 11/03/23 History (Vraylar) cetirizine 10 mg tablet (24Hour 10 mg PO DAILY PRN allergy symptoms 09/10/22 11/03/23 History Allergy) clonazepam 1 mg tablet 1 mg Q12H 09/10/22 History duloxetine 60 mg capsule,delayed mg PO BID 09/10/22 History release ferrous sulfate 325 mg (65 mg 325 mg PO BID 09/10/22 11/03/23 History iron) tablet (FeroSul) losartan 50 mg tablet (Cozaar) 100 mg PO DAILY 09/10/22 11/04/23 History magnesium 200 mg tablet 400 mg PO QDAY 09/10/22 11/04/23 History melatonin 12 mg tablet 12 mg PO .HS PRN sleep 09/10/22 11/03/23 History omeprazole 20 mg capsule,delayed 20 mg QDAY 09/10/22 History release ropinirole 4 mg tablet mg QDAY 09/10/22 History trazodone 150 mg tablet 300 mg .HS 09/10/22 History tizanidine 2 mg tablet 2 mg PO TID PRN muscle spasticity 10/01/23 11/03/23 Rx #90 tabs fluticasone propionate 50 1 spray intranasal DAILY PRN 10/20/23 11/03/23 History mcg/actuation nasal allergy symptoms spray,suspension (Flonase Allergy Relief) spironolactone 50 mg tablet 50 mg PO DAILY 10/20/23 11/03/23 History gabapentin 300 mg capsule mg BID 11/03/23 History calcium citrate 200 mg (950 mg) 200 mg PO QID 11/04/23 11/04/23 History tablet carvedilol 12.5 mg tablet mg 11/04/23 History multivitamin 1 tab PO DAILY 11/04/23 11/04/23 History Allergies Allergy/AdvReac Type Severity Reaction Status Date / Time levetiracetam [From Keppra] Allergy Severe Unknown Verified 11/03/23 06:49 adhesive Allergy Intermediate Blister Verified 11/03/23 06:49 Penicillins Allergy Intermediate Unknown Verified 11/03/23 06:49 tetracycline Allergy Intermediate Unknown Verified 11/03/23 06:49 eszopiclone [From Lunesta] Allergy Unknown Verified 11/03/23 06:49 milnacipran [From Savella] AdvReac Intermediate Agitated Verified 11/03/23 06:49 prochlorperazine AdvReac Intermediate Agitated Verified 11/03/23 06:49 [From Compazine] Exam Constitutional Documenting provider has reviewed patient's vital signs: yes Common normals: no apparent distress, oriented x3, healthy appearing, alert and well nourished General appearance: cooperative Nutritional appearance: obese HENMT Common normals: normocephalic, hearing grossly normal bilaterally and moist oral mucous membranes Head and scalp: normocephalic Eye Common normals: PERRL Pupil: PERRL Neck & C-Spine Common normals: full ROM General: normal visual inspection Chest Common normals: inspection of chest normal Respiratory Common normals: normal respiratory effort, no retractions and no use of accessory muscles Back & Pelvis Thoracic spine/upper back: ROM limited, pain with ROM and thoracic spinal tenderness Lumbar spine/lower back: ROM limited, pain with ROM, lumbar spinal tenderness and straight leg raise negative bilaterally Sacroiliac joints: SI joint(s) abnormal Other: positive facet loading and tednerness over bilateral T11-L3 facets pain over bilateral PSIS, positive autumn fadir thigh thrust and gaenslens mildly improved from prior no pain over bilateral LCIH nerve Extremity Common normals: normal to inspection and full ROM Left lower extremity: hip joint Other: no pain with external rotation and internal rotation of left hip Neuro Common normals: oriented x3, CN's II-XII intact bilaterally, moves all extremities, no focal motor deficits, no sensory deficits noted, deep tendon reflexes 2+ bilaterally and gait normal Sensorium/orientation: alert Gait (neuro): normal gait Motor exam: strength 5/5 throughout and no movement abnormalities noted Psych Common normals: mental status grossly normal, thought process normal, cooperative, affect normal, speech normal and activity/motor behavior normal Speech: normal speech Thought process: normal thought process Results Additional Findings Additional findings: If on a controlled substance or opioids, I have checked an [place]AR[place] report on this patient and there are no aberrancies noted in the prescribing history.??If on a controlled substance or opioid a drug screen was completed and reviewed within the last year, and if there has not been a drug screen completed we ordered one today to monitor higher risk, state monitored pain medication use. As part of providing excellent, safe, comprehensive care, the following was completed at our patient's visit: 1. A medication reconciliation and review to ensure accurate knowledge of current/active medications, including asking our patients to inform us about any [id number] medications or herbal remedies/nutritional supplements/alternative remedies. 2. A review to specifically ensure our patients have had annual screening for sc reening for depression, screening for tobacco use, and screening for unhealthy alcohol use. For concerning screenings had a discussion with the patient, provided patient education, and recommended follow-up with primary care provider when appropriate. If patient noted with a risk of falling, they received education on strength, gait, and balance training to prevent future risk of falling. Assessment and Plan Assessment and Plan (1) Thoracic back pain: (2) Unspecified mononeuropathy of left lower limb: (3) Unspecified mononeuropathy of right lower limb: (4) Osteoarthritis of left hip: (5) Sacroiliitis: (6) Lumbar spondylosis: (7) Myofascial pain: Plan update thoracic and lumbar xray for chronic pain continue current medications through PCP and psychiatry f/u to review imaging
== END 2023-12-02 13:21 | disposition home or self-care (01) ==
LOC: PM 13:20
PROVIDERS: PCP Nurse Practitioner; Visit Provider Nurse Practitioner
DX: M54.9 Dorsalgia, unspecified (principal); G89.29 Other chronic pain; M54.6 Pain in thoracic spine; G57.93 Unspecified mononeuropathy of bilateral lower limbs; M16.12 Unilateral primary osteoarthritis, left hip; M47.816 Spondylosis without myelopathy or radiculopathy, lumbar region; M46.1 Sacroiliitis, not elsewhere classified; M79.18 Myalgia, other site
CPT/HCPCS: 72070; 72114; G0463

== ENCOUNTER 2023-12-02 13:52 | Outpatient (OUT) | payer MEDICARE, SELFPAY ==
--- NOTE | 2023-12-02 14:25 | XR_ITS ---
The [address] [address] Patient Name: MICHELLE BE MRN: [id number] date: 1960 Sex: F Assigned Patient Location: [facility] Current Patient Location: [facility] Accession/Order Number: [id number] Exam Date: 12/02/2023 14:10 Report Date: 12/02/2023 14:53 At the request of: ELIZABETH CANO Procedure: XR thoracic spine 2V EXAMINATION: XR thoracic spine 2V, XR lumbar spine 6V w bending HISTORY: Chronic Back Pain COMPARISON: No relevant comparison available. FINDINGS: BONES: Normal alignment of the thoracic and lumbar vertebral bodies with no acute fracture or spondylolisthesis. Mild to moderate spondylosis and facet osteoarthropathy DISC SPACES: Normal. No significant disc height narrowing, subluxation, or endplate abnormality. PARASPINOUS: Negative. No paraspinous abnormality is seen. OTHER: No transient spondylolisthesis with flexion or extension XR/XR thoracic spine 2V IMPRESSION: Mild to moderate degenerative change of the thoracic and lumbar spine No dynamic instability Electronically authenticated by: HARRISON MACIEL Date: 12/02/2023 14:53
--- NOTE | 2023-12-02 14:25 | XR_ITS ---
The [address] [address] Patient Name: MICHELLE BE MRN: [id number] date: 1960 Sex: F Assigned Patient Location: [facility] Current Patient Location: [facility] Accession/Order Number: [id number] Exam Date: 12/02/2023 14:10 Report Date: 12/02/2023 14:53 At the request of: ELIZABETH CANO Procedure: XR lumbar spine 6V w bending EXAMINATION: XR thoracic spine 2V, XR lumbar spine 6V w bending HISTORY: Chronic Back Pain COMPARISON: No relevant comparison available. FINDINGS: BONES: Normal alignment of the thoracic and lumbar vertebral bodies with no acute fracture or spondylolisthesis. Mild to moderate spondylosis and facet osteoarthropathy DISC SPACES: Normal. No significant disc height narrowing, subluxation, or endplate abnormality. PARASPINOUS: Negative. No paraspinous abnormality is seen. OTHER: No transient spondylolisthesis with flexion or extension XR/XR lumbar spine 6V w bending IMPRESSION: Mild to moderate degenerative change of the thoracic and lumbar spine No dynamic instability Electronically authenticated by: HARRISON MACIEL Date: 12/02/2023 14:53
== END 2023-12-02 13:53 | disposition home or self-care (01) ==
LOC: RAD 13:54
PROVIDERS: PCP Nurse Practitioner; Visit Provider Nurse Practitioner
DX: M54.9 Dorsalgia, unspecified (principal); G89.29 Other chronic pain
CPT/HCPCS: 72070; 72114

== ENCOUNTER 2023-12-17 13:36 | Outpatient (OUT) | payer MEDICARE, SELFPAY ==
--- NOTE | 2023-12-17 14:14 | P.CN_ITS ---
Consult Note: HPI Data of Consult Patient: known to practice within the last 3 years Requesting Physician: Bhakti Culp NP Primary Care Provider: Adelaida Carrion NP Consult Narrative Reason for consult: f/u Narrative: Nasim Ingram a pleasant 62 year old female presents for evaluation and management of chronic low back pain and left hip pain. Pain 4/10 constant pain in middle and low back. Pain increased with standing, walking, housework, lifting, stairs, bending, and activity. Patient following with Dr Díaz for consideration of right knee replacement, pending dental clearance. Patient finds mild benefit from medication regimen. Patient recently underwent bilateral LCIH nerve RFA greater than 80% improvement ongoing. Patient continues to have moderate to severe middle and low back pain without numbness tingling or weakness. recent thoracic and lumbar xrays show mild degenerative changes throughout the spine. cc:: CC: Bhakti Culp NP Review of Systems ROS Status of ROS 10 or more systems reviewed and unremark able except as noted in history and below Musculoskeletal Reports: back pain PFSH PFSH Medical History FH: bariatric surgery ?Z84.89 - Family history of other specified conditions (ICD-10) Upper back pain ?M54.9 - Dorsalgia, unspecified (ICD-10) Osteoarthritis ?M19.90 - Unspecified osteoarthritis, unspecified site (ICD-10) Neck pain ?M54.2 - Cervicalgia (ICD-10) Low back pain ?M54.50 - Low back pain, unspecified (ICD-10) Fibromyalgia ?M79.7 - Fibromyalgia (ICD-10) Bipolar 1 disorder ?F31.9 - Bipolar disorder, unspecified (ICD-10) Acid reflux ?K21.9 - Gastro-esophageal reflux disease without esophagitis (ICD-10) Obesity ?E66.9 - Obesity, unspecified (ICD-10) Sleep apnea ?G47.30 - Sleep apnea, unspecified (ICD-10) Heart murmur ?R01.1 - Cardiac murmur, unspecified (ICD-10) High cholesterol ?E78.00 - Pure hypercholesterolemia, unspecified (ICD-10) Hypertension ?I10 - Essential (primary) hypertension (ICD-10) Surgical History S/P dilatation and curettage ?Z98.890 - Other specified postprocedural states (ICD-10) H/O breast biopsy ?Z98.890 - Other specified postprocedural states (ICD-10) S/P ORIF (open reduction internal fixation) fracture ?Z98.890 - Other specified postprocedural states (ICD-10) ?Z87.81 - Personal history of (healed) traumatic fracture (ICD-10) Hx of laparoscopic gastric banding ?Z98.84 - Bariatric surgery status (ICD-10) History of tonsillectomy and adenoidectomy ?Z90.89 - Acquired absence of other organs (ICD-10) History of appendectomy ?Z90.49 - Acquired absence of other specified parts of digestive tract (ICD- 10) History of hemilaminectomy ?Z98.890 - Other specified postprocedural states (ICD-10) History of cholecystectomy ?Z90.49 - Acquired absence of other specified parts of digestive tract (ICD- 10) Previous section ?Z98.891 - History of uterine scar from previous surgery (ICD-10) Social History Smoking status: Former smoker Meds Home Medications and Allergies Home Medications ?Medication ?Instructions ?Recorded ?Confirmed ?Type amlodipine 10 mg tablet (Norvasc) 10 mg PO DAILY 09/10/22 11/03/23 History biotin 1 mg capsule 5 mg PO DAILY 09/10/22 11/04/23 History cariprazine 4.5 mg capsule 4.5 mg PO Q24H 09/10/22 11/03/23 History (Vraylar) cetirizine 10 mg tablet (24Hour 10 mg PO DAILY PRN allergy symptoms 09/10/22 11/03/23 History Allergy) clonazepam 1 mg tablet 1 mg Q12H 09/10/22 History duloxetine 60 mg capsule,delayed mg PO BID 09/10/22 History release ferrous sulfate 325 mg (65 mg 325 mg PO BID 09/10/22 11/03/23 History iron) tablet (FeroSul) losartan 50 mg tablet (Cozaar) 100 mg PO DAILY 09/10/22 11/04/23 History magnesium 200 mg tablet 400 mg PO QDAY 09/10/22 11/04/23 History melatonin 12 mg tablet 12 mg PO .HS PRN sleep 09/10/22 11/03/23 History omeprazole 20 mg capsule,delayed 20 mg QDAY 09/10/22 History release ropinirole 4 mg tablet mg QDAY 09/10/22 History trazodone 150 mg tablet 300 mg .HS 09/10/22 History tizanidine 2 mg tablet 2 mg PO TID PRN muscle spasticity 10/01/23 11/03/23 Rx #90 tabs fluticasone propionate 50 1 spray intranasal DAILY PRN 10/20/23 11/03/23 History mcg/actuation nasal allergy symptoms spray,suspension (Flonase Allergy Relief) spironolactone 50 mg tablet 50 mg PO DAILY 10/20/23 11/03/23 History gabapentin 300 mg capsule mg BID 11/03/23 History calcium citrate 200 mg (950 mg) 200 mg PO QID 11/04/23 11/04/23 History tablet carvedilol 12.5 mg tablet mg 11/04/23 History multivitamin 1 tab PO DAILY 11/04/23 11/04/23 History Allergies Allergy/AdvReac Type Severity Reaction Status Date / Time levetiracetam [From Keppra] Allergy Severe Unknown Verified 11/03/23 06:49 adhesive Allergy Intermediate Blister Verified 11/03/23 06:49 Penicillins Allergy Intermediate Unknown Verified 11/03/23 06:49 tetracycline Allergy Intermediate Unknown Verified 11/03/23 06:49 eszopiclone [From Lunesta] Allergy Unknown Verified 11/03/23 06:49 milnacipran [From Savella] AdvReac Intermediate Agitated Verified 11/03/23 06:49 prochlorperazine AdvReac Intermediate Agitated Verified 11/03/23 06:49 [From Compazine] Exam Constitutional Documenting provider has reviewed patient's vital signs: yes Common normals: no apparent distress, oriented x3, healthy appearing, alert and well nourished General appearance: cooperative Nutritional appearance: obese HENMT Common normals: normocephalic, hearing grossly normal bilaterally and moist oral mucous membranes Head and scalp: normocephalic Eye Common normals: PERRL Pupil: PERRL Neck & C-Spine Common normals: full ROM General: normal visual inspection Chest Common normals: inspection of chest normal Respiratory Common normals: normal respiratory effort, no retractions and no use of accessory muscles Back & Pelvis Thoracic spine/upper back: ROM limited, pain with ROM and thoracic spinal tenderness Lumbar spine/lower back: ROM limited, pain with ROM, lumbar spinal tenderness and straight leg raise negative bilaterally Sacroiliac joints: SI joint(s) abnormal Other: positive facet loading and tednerness over bilateral T11-L3 facets pain over bilateral PSIS, positive autumn fadir thigh thrust and gaenslens mildly improved from prior no pain over bilateral LCIH nerve Extremity Common normals: normal to inspection and full ROM Left lower extremity: hip joint Other: no pain with external rotation and internal rotation of left hip Neuro Common normals: oriented x3, CN's II-XII intact bilaterally, moves all extremities, no focal motor deficits, no sensory deficits noted and deep tendon reflexes 2+ bilaterally Sensorium/orientation: alert Gait (neuro): normal gait Motor exam: strength 5/5 throughout and no movement abnormalities noted Psych Common normals: mental status grossly normal, thought process normal, cooperative, affect normal, speech normal and activity/motor behavior normal Speech: normal speech Thought process: normal thought process Results Additional Findings Additional findings: If on a controlled substance or opioids, I have checked an [place]AR[place] report on this patient and there are no aberrancies noted in the prescribing history.??If on a controlled substance or opioid a drug screen was completed and reviewed within the last year, and if there has not been a drug screen completed we ordered one today to monitor higher risk, state monitored pain medication use. As part of providing excellent, safe, comprehensive care, the following was completed at our patient's visit: 1. A medication reconciliation and review to ensure accurate knowledge of current/active medications, including asking our patients to inform us about any [id number] medications or herbal remedies/nutritional supplements/alternative remedies. 2. A review to specifically ensure our patients have had annual screening for screening for depression, screening for tobacco use, and screening for unhealthy alcohol use. For concerning screenings had a discussion with the patient, provided patient education, and recommended follow-up with primary care provider when appropriate. If patient noted with a risk of falling, they received education on strength, gait, and balance training to prevent future risk of falling. Assessment and Plan Assessment and Plan (1) Thoracic spondylosis: (2) Lumbar spondylosis: (3) Muscle spasm: Plan proceed with bilateral T10-11 T11-12 MBBs x2 working towards RFA under fluoroscopy for chronic mid back pain unresponsive to PT/HEP greater than 6 weeks, conservative measures including heat ice and tylenol, cannot take NSAIDs. risks vs benefits reviewed continue current medications f/u after each injection
== END 2023-12-17 13:37 | disposition home or self-care (01) ==
LOC: PM 13:36
PROVIDERS: PCP Nurse Practitioner; Visit Provider Nurse Practitioner
DX: M47.814 Spondylosis without myelopathy or radiculopathy, thoracic region (principal); M47.816 Spondylosis without myelopathy or radiculopathy, lumbar region; M62.838 Other muscle spasm
CPT/HCPCS: G0463

== ENCOUNTER 2024-01-05 06:30 | Day surgery (SDC) | payer MEDICARE, SELFPAY ==
--- OUTSIDE RECORDS SUMMARY | 2024-01-05 06:33 | XMS_ITS | CCD ---
Author Organization [facility] Care Team Providers Care Counter Clerk Name Role Phone EBRAHEIM, SUKI Admitting Unavailable EBRAHEIM, SUKI Attending Unavailable AICHHOLZ, ADELAIDA Referring Unavailable AICHHOLZ, ADELAIDA Primary Care Unavailable [place] Procedure Practitioner Unavailab SUKI Jacob Surgeon Unavailable [place] Procedure Practitioner Unavailab CHAPARRITA Goncalves Surgeon Unavailable BRIDGETTE MACEDO Admitting Unavailable BRIDGETTE MACEDO Attending Unavailable AICHHOLZ, PRICE ACCURACY SUPERVISOR ADELAIDA Primary Care Unavailable ZIMMER ., DR FINA Iverson Admitting Unavailable ZIMMER ., DR FINA Iverson Attending Unavailable AICHHOLZ, PRICE ACCURACY SUPERVISOR ADELAIDA Primary Care Unavailable MCDANIEL ., ZELDA Consulting Unavailable LAKSHMIPATHY ., NARENDRANATH Consulting Paula vailable LAKSHMIPATHY ., NARENDRANATH Admitting Paula vailable LAKSHMIPATHY ., NARENDRANATH Attending Paula vailable AICHHOLZ, PRICE ACCURACY SUPERVISOR ADELAIDA Primary Care Unavailable LAKSHMIPATHY ., NARENDRANATH Consulting Paula vailable AICHHOLZ, PRICE ACCURACY SUPERVISOR ADELAIDA Primary Care Unavailable MARKER ., DR CHAUDHRY Admitting Unavailable MARKER ., DR CHAUDHRY Attending Unavailable MARKER ., DR CHAUDHRY Consulting Unavailable AICHHOLZ, PRICE ACCURACY SUPERVISOR ADELAIDA Admitting Unavailable AICHHOLZ, PRICE ACCURACY SUPERVISOR ADELAIDA Attending Unavailable AICHHOLZ, PRICE ACCURACY SUPERVISOR ADELAIDA Primary Care Unavailable ZIMMER ., DR FINA Iverson Admitting Unavailable ZIMMER ., DR FINA Iverson Attending Unavailable AICHHOLZ, PRICE ACCURACY SUPERVISOR ADELAIDA Primary Care Unavailable MCDANIEL ., ZELDA Consulting Unavailable ZIMMER ., DR FINA Iverson Admitting Unavailable ZIMMER ., DR FINA Iverson Attending Unavailable AICHHOLZ, PRICE ACCURACY SUPERVISOR ADELAIDA Primary Care Unavailable MCDANIEL ., ZELDA Consulting Unavailable AICHHOLZ, PRICE ACCURACY SUPERVISOR ADELAIDA Admitting Unavailable AICHHOLZ, PRICE ACCURACY SUPERVISOR ADELAIDA Attending Unavailable AICHHOLZ, PRICE ACCURACY SUPERVISOR ADELAIDA Primary Care Unavailable AICHHOLZ, PRICE ACCURACY SUPERVISOR ADELAIDA Consulting Unavailable AICHHOLZ, PRICE ACCURACY SUPERVISOR ADELAIDA Admitting Unavailable AICHHOLZ, PRICE ACCURACY SUPERVISOR ADELAIDA Attending Unavailable AICHHOLZ, PRICE ACCURACY SUPERVISOR ADELAIDA Primary Care Unavailable AICHHOLZ, PRICE ACCURACY SUPERVISOR ADELAIDA Consulting Unavailable MISC, DR COTE Admitting Unavailable MISC, DR COTE Attending Unavailable AICHHOLZ, PRICE ACCURACY SUPERVISOR ADELAIDA Primary Care Unavailable AICHHOLZ, PRICE ACCURACY SUPERVISOR ADELAIDA Consulting Unavailable PRITESHC, DR COTE Consulting Unavailable STARR, DR KINGSLEY Atkins Consulting Unavailable ZIMMER ., DR FINA Iverson Admitting Unavailable ZIMMER ., DR FINA Iverson Attending Unavailable AICHOLZ, PRICE ACCURACY SUPERVISOR ADELAIDA Primary Care Unavailable MCDANIEL ., ZELDA Consulting Unavailable ZIMMER ., DR FINA Iverson Admitting Unavailable ZIMMER ., DR FINA Iverson Attending Unavailable AICHOLZ, PRICE ACCURACY SUPERVISOR ADELAIDA Primary Care Unavailable ZIMMER ., DR FINA Iverson Consulting Unavailable OMID LAY Consulting Unavailable ZIMMER ., DR FINA Iverson Admitting Unavailable ZIMMER ., DR FINA Iverson Attending Unavailable AICHOLZ, PRICE ACCURACY SUPERVISOR ADELAIDA Primary Care Unavailable MCDANIEL ., ZELDA Consulting Unavailable AICHOLZ, PRICE ACCURACY SUPERVISOR ADELAIDA Primary Care Unavailable HALKER ., ARIAN Admitting Unavailable HALKER ., ARIAN Attending Unavailable LAKSHMIPATHY ., NARENDRANATH Consulting Palua vailable HALKER ., ARIAN Consulting Unavailable LAKSHMIPATHY ., NARENDRANATH Admitting Paula vailable LAKSHMIPATHY ., NARENDRANATH Attending Paula vailable AICHOLZ, PRICE ACCURACY SUPERVISOR ADELAIDA Primary Care Unavailable LAKSHMIPATHY ., NARENDRANATH Consulting Paula vailable AICHHOLZ, PRICE ACCURACY SUPERVISOR ADELAIDA Admitting Unavailable AICHHOLZ, PRICE ACCURACY SUPERVISOR ADELAIDA Attending Unavailable AICHHOLZ, PRICE ACCURACY SUPERVISOR ADELAIDA Primary Care Unavailable AICHHOLZ, PRICE ACCURACY SUPERVISOR ADELAIDA Consulting Unavailable BRIDGETTE MACEDO Admitting Unavailable BRIDGETTE MACEDO Attending Unavailable AICHHOLZ, PRICE ACCURACY SUPERVISOR ADELAIDA Primary Care Unavailable DR KINGSLEY CLEMENTS Consulting Unavailable BRIDGETTE MACEDO Consulting Unavailable PURA, GILMER Admitting Unavailable GILMER NEVES Attending Unavailable PURA, GILMER Consulting Unavailable AICHHOLZ, PRICE ACCURACY SUPERVISOR ADELAIDA Primary Care Unavailable AICHHOLZ, PRICE ACCURACY SUPERVISOR ADELAIDA Primary Care Unavailable DR WILLI RINALDI Admitting Unavailable DEEJAY, DR WILLI Atkins Attending Unavailable DR WILLI RINALDI Consulting Unavailable AICHHOLZ, PRICE ACCURACY SUPERVISOR ADELAIDA Primary Care Unavailable ALMAZ ., DANNY Admitting Unavailable ALMAZ ., DANNY Attending Unavailable DR KINGSLEY CLEMENTS Consulting Unavailable ALMAZ ., DANNY Consulting Unavailable LAKSHMIPATHY ., NARENDRANATH Admitting Paula vailable LAKSHMIPATHY ., NARENDRANATH Attending Paula vailable AICHHOLZ, PRICE ACCURACY SUPERVISOR ADELAIDA Primary Care Unavailable AICHHOLZ, PRICE ACCURACY SUPERVISOR ADELAIDA Admitting Unavailable AICHHOLZ, PRICE ACCURACY SUPERVISOR ADELAIDA Attending Unavailable AICHHOLZ, PRICE ACCURACY SUPERVISOR ADELAIDA Primary Care Unavailable AICHHOLZ, PRICE ACCURACY SUPERVISOR ADELAIDA Admitting Unavailable AICHHOLZ, PRICE ACCURACY SUPERVISOR ADELAIDA Attending Unavailable AICHHOLZ, PRICE ACCURACY SUPERVISOR ADELAIDA Primary Care Unavailable AICHHOLZ, PRICE ACCURACY SUPERVISOR ADELAIDA Consulting Unavailable DR KINGSLEY CLEMENTS Consulting Unavailable HALKER ., ARIAN Admitting Unavailable HALKER ., ARIAN Attending Unavailable AICHHOLZ, PRICE ACCURACY SUPERVISOR ADELAIDA Primary Care Unavailable Aichholz, Adelaida J Primary Care Provider MD Gaudencio Monk Admit Provider MD Gaudencio Monk Attending Provider JOHANN Vieira Other Provider Unavailable JOHANN Pina Other Provider Unavailable JOHANN Hurtado Other Provider Unavailable JOHANN Crooks Other Provider Unavailable JOHANN Mejias Other Provider Unavailable JOHANN Kim Other Provider Unavailable MD Walker Pringle Other Provider ROSS Marsh Other Provider [phone] DO Jessica Murillo Other Provider [phone] MD Obdulio Bragg Other Provider DO Joon Cristina Other Provider MD Torin Robert Other Provider MD Dawn Barrera Other Provider [phone] Karlene, ANP- Mari Other Provider MD Sofi Almanzar Other Provider MD Sharad Gallegos Other Provider MD Aby Cain Other Provider MD Hillary Carrera Other Provider DO Julio César Mckeon Other Provider MD Valentine Mak Other Provider MD Raymond Strong Other Provider BRIANA Le-C Joellen Mcnair Other Provider MD Severo Yancey Other Provider MD Rao Webber Other Provider MD Yuan Shi Other Provider MD Derloy Ramirez Other Provider DO Berta Comer Other [...] Provider Jamee JAIMES, Syeda King Attending Unavailable Jace Graham Admitting Unavailable Jace Graham Attending Unavailable Adelaida Carrion Primary Care Unavailable Aichholnena, Adelaida J Primary Care Unavailable Eduardo Monk Admitting Unavailab le Aleshia, Eduardo Attending Unavailab ASHLEIGH Arizmendi Attending Unavailable AICHHOLZ, ADELAIDA Attending Unavailable ASHLEIGH HINES Attending Unavailable AICHHOLZ, ADELAIDA Attending Unavailable AICHHOLZ, ADELAIDA Attending Unavailable AICHHOLZ, ADELAIDA Attending Unavailable JR. HARRY GEORGE C Attending Unavaila ble AICHHOLZ, ADELAIDA Attending Unavailable AICHHOLZ, ADELAIDA Attending Unavailable WINDSONAM RAMSAY Attending Unavailable AICHHOLZ, ADELAIDA Attending Unavailable WINDNAGENARO VILLASENORICIMonse Ricci Attending Unavailable SUHAS TREJO Attending Unavailable AICHHOLZ, ADELAIDA Attending Unavailable AICHHOLZ, ADELAIDA Attending Unavailable Allergies Allergy Classification Reported Allergen(s) Allergy Type Date of Onset Reaction(s) Facility (7 sources) Adhesive Tape; Translations: [ADHESIVE TAPE] Propensity to adverse reactions (disorder) 04-06-19 14 rash The [facility] Repository (3 sources) levETIRAcetam; Translations: [KEPPRA] Drug Allergy 07-02-19 19 The [facility] (3 sources) milnacipran; Translations: [SAVELLA] Drug Allergy 03-14-20 13 The [facility] (1 source) Penicillin; Translations: [PENICILLIN] Drug Allergy 01-16-20 18 The [facility] (5 sources) Prochlorperazin e; Translations: [COMPAZINE] Drug Allergy 03-14-20 13 agitation The [facility] (12 sources) Tetracycline; Translations: [TETRACYCLINE] Drug Allergy 04-06-19 13 Hives, Unknown [facility] (4 sources) Penicillins Drug allergy (disorder) 04-06-19 13 Unknown Reaction The [facility] Repository (9 sources) levETIRAcetam; Translations: [levetiracetam] Drug Allergy 12-13-19 22 Hallucinations , Other [facility] (9 sources) milnacipran; Translations: [milnacipran] Drug Allergy 12-13-19 hives, Hallucinations , Other, Unknown [facility] (7 sources) Prochlorperazin e; Translations: [prochlorperazi ne] Drug Allergy 12-13-19 Unknown, Other [facility] (2 sources) Penicillin G Drug Allergy as a child [facility]PS [facility] Other (2 sources) Tetracaine Drug Allergy Unknown [facility] Other (4 sources) Penicillins Drug Intolerance 12-13-19 Anaphylaxis [facility] (4 sources) Other Propensity to adverse reactions 12-13-19 Other [facility] (4 sources) Wound Dressing Adhesive Drug Allergy 09-20-19 Rash, Unknown [facility] (1 source) Penicillin Drug Allergy 12-20-19 [facility] (1 source) Penicillins Drug allergy (disorder) 03-23-20 [facility]ository (1 source) Tetracaine Drug Allergy 12-20-19 [facility] Repository Medications Current Medications Medication [...] 2022 11:00pm take 2 tablets by mo ut at bedtime gabapentin (Neurontin) 600 MG tablet [...] 23, 2023 12:00am take 2 tablets by [facility] once daily at bedtime Melatonin 10 MG 2 TABLETS Orally QHS Active Melatonin 12 MG tablet dispersible (4 sources) Melatonin 12 MG tablet dispersible 1 (one) time each day at the same time. 0 Active Multiple Vitamins-Minerals (BARIATRIC MULTIVITAMINS/IRON PO) (4 sources) Multiple Vitamins-Minerals (BARIATRIC MULTIVITAMINS/IRON PO) Bariatric Multivitamins/Iron 0 Active Dagybvlrstze-Yyn-Jtrz-Fa- Vit K (Bariatric Multivitamins) 45 mg iron- 800 mcg-120 mcg Capsule (2 sources) Start: 11-17-2022 take 1 capsule by mouth once daily Macrabhdmucx-Zvo-Whgh-Fa -Vit K (Bariatric Multivitamins) 45 mg iron- 800 mcg-120 mcg Capsule Active 1 CAP PO Daily November 16, 2022 11:00pm Start: 11-17-2022 take 1 capsule by mo uth once daily Kbslzqbpfqya-Oja-Bner-Fa-Vit K (Bariatri c Multivitamins) 45 mg iron- 800 mcg-120 mcg Capsule Active 1 CAP PO Daily November 17, 2022 12:00am nystatin 100 unt/mg topical powder (4 sources) Polyene Antifungal nystatin (Myc ostatin) 927239 UNIT/GM powder Apply 1 application topically in [...] Start: 06-02-2022 take 1 tablet by kenyatta every two hours in the evening rOPINIRole [...] infarction, unspecified] Onset: 04-06-19 18 05-18-2023 Chronic Allergic reactions (4 sources) Unspecified contact dermatitis, unspecified cause; Translations: [Allergic condition] Onset: 09-14-19 22 11-18-2022 Episodic Anxiety disorders (10 sources) Post-traumatic stress disorder, unspecified; Translations: [Anxiety disorder, unspecified] Onset: 04-29-19 23 05-18-2023 Chronic Cardiac and circulatory congenital anomalies (4 sources) Cerebrovascular disease; Translations: [Other malformations of cerebral vessels] Onset: 05-18-19 24 05-18-2023 Chronic Conditions associated with dizziness or vertigo (8 sources) Benign paroxysmal positional vertigo; Translations: [Benign paroxysmal vertigo, unspecified ear] Onset: 05-18-1905-18-2023 Episodic Deficiency and other anemia (4 sources) Anemia; Translations: [Anemia, unspecified] Onset: 05-18-1905-18-2023 Episodic Diabetes mellitus without complication (2 sources) [...] [Age-related osteoporosis without current pathological fracture] Onset: 05-18-1905-18-2023 Chronic Other and ill-defined heart disease (4 [...] Other hereditary and degenerative nervous system conditions (1 source) Restless legs syndrome; Translations: [Restless legs syndrome (RLS)] 11-20-2022 Chronic Other nervous system disorders (1 source) Other chronic pain; Translations: [OTHER CHRONIC PAIN] Onset: 06-30-19 Chronic Other nervous system disorders (4 sources) Chronic pain syndrome; Translations: [CHRONIC PAIN SYNDROME] Onset: 04-03-20 Chronic Other nervous system disorders (6 sources) Chronic pain syndrome; Translations: [Chronic pain syndrome] Onset: 05-18-19 24 05-18-2023 Chronic Other nervous system disorders (4 sources) [...] nutritional; endocrine; and metabolic disorders (1 source) Morbid (severe) obesity due to excess calories; Translations: [Morbid obesity] 11-20-2022 Chronic Other nutritional; endocrine; and metabolic disorders (6 sources) Morbid obesity; Translations: [Morbid (severe) obesity due to excess calories] Onset: 03-25-2003-25-2023 Chronic Other upper respiratory disease (4 sources) [...] (pediatric)] Onset: 05-18-1911-18-2022 Chronic Residual codes; unclassified (1 source) Obstructive sleep apnea (adult) (pediatric); Translations: [Obstructive sleep apnea (adult)(pediatric)] 11-20-2022 Chronic Residual codes; unclassified (6 sources) Edema [...] or radiculopathy, lumbar region] Onset: 08-24-19 Chronic Spondylosis; intervertebral disc disorders; other back problems (3 sources) Sacrococcygeal disorders, not elsewhere classified; Translations: [Chronic back pain ] Onset: 08-24-1911-20-2022 Episodic Substance-related disorders (6 sources) Tobacco dependence syndrome; [...] Other Problems Problem Classification Problem Date Documented Da te Episodic/Chronic E Codes: Cut/pierceb (1 source) Contact with [...] 02-20-2022 Episodic Other aftercare (1 source) 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; Translations: [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 DRUG THERAPY] Onset: 04-29-2022 Episodic Other [...] edema; Translations: [LOCALIZED EDEMA] Onset: 03-19-2022 Episodic Unclassified (1 source) LOW BACK PAIN, UNSPECIFIED; Translations: [LOW BACK PAIN, UNSPECIFIED] Onset: 06-26-2022 Viral infection (4 sources) Herpes zoster; Translations: [Zoster without complications] Onset: 05-18-2023 Resolved: 05-18-2023 05-18-2023 Episodic Results Test Name Value Interpretation Reference Range Facility Amphetamine Screen Ql (U)Ord ered By: Jace Graham on 03-23-2023 Amphetamines Ql (U) Negative Negative [facility] Barbiturates [Presence] in U rine by Screen methodOrdered By: Jace Graham on 03-23-2023 Barbiturates Screen Ql (U) Negative Negative [facility] Benzodiazepines Screen Ql (U )Ordered By: Jace Graham on 03-23-2023 Benzodiazepines Ql (U) Negative Negative [facility] Benzoylecgonine [Presence] i n Urine by Screen methodOrdered By: Jace Graham on 03-23-2023 Benzoylecgonine Screen Ql (U) Negative Negative [facility] Cannabinoids [Presence] in U rine by Screen methodOrdered By: Jace Graham on 03-23-2023 Cannabinoids Screen Ql (U) Negative Negative [facility] Comment on above: These are unconfirme d results and should not be used for legal purposes. Drug Cut-Off Concentration: AMPH 1000 ng/mL ELKIN 200 ng/mL ATIYA 200 ng/mL COCM 300 ng/mL OP 300 ng/mL PCP 25 ng/mL THC 20 ng/mL Drug Screen,Urineon 03-23-20 23 Amphetamine Screen,Urine Negative Normal Negative [facility] Comment on above: Performed By: #### U RDS #### [address] Barbiturate Screen,Urine Negative Normal Negative [facility] Comment on above: Performed By: #### U RDS #### [facility] [address] [place] [address] [place] Benzodiazepines Screen,Urine Negative Normal Negative [facility] Comment on above: Performed By: #### U RDS #### [place] [address] [place] Cannabinoid Screen,Urine Negative Normal Negative [facility] Comment on above: Result Comment: Thes e are unconfirmed results and should not be used for legal purposes. Drug Cut-Off Concentration: AMPH 1000 ng/mL ELKIN 200 ng/mL ATIYA 200 ng/mL COCM 300 ng/mL OP 300 ng/mL PCP 25 ng/mL THC 20 ng/mL PERFORMED BY: [place] [address] PATHOLOGIST FORENSIC SCIENTIST AN CURRY M.D. Performed By: #### U RDS #### [facility] [address] [place] [address] [place] Cocaine Screen,Urine Negative Normal Negative [facility] Comment on above: Performed By: #### U RDS #### [facility] [address] [place] [address] [place] Opiate Screen,Urine Negative Normal Negative [facility] Comment on above: Performed By: #### U RDS #### [facility] [address] Phencyclidine Screen,Urine Negative Normal Negative [facility] Comment on above: Performed By: #### U RDS #### [facility] [address] Opiates [Presence] in Urine by Screen methodOrdered By: Jace Graham on 03-23-2023 Opiates Screen Ql (U) Negative Negative [facility] Phencyclidine Screen Ql (U)O rdered By: Jace Graham on 03-23-2023 Phencyclidine Ql (U) Negative Negative [facility] Cholesterol [Mass/volume] in Serum or PlasmaOrdered By: Eduardo Monk on 11-18-2022 Cholesterol [Mass/Vol] 159 mg/dL 140-200 [facility] Comment on above: Chol less than 200 m g/dl low riskChol 201-239 mg/dl borderline riskChol 240 mg/dl and greater high risk Cholesterol in LDL Calc [Mas s/Vol]Ordered By: Eduardo Monk on 11-18-2022 Cholesterol in LDL [Mass/Vol] 84 mg/dL 0-100 [facility] Comment on above: LDL ATP III CLASSIFI CATIONLDL less than 100 mg/dL OptimalLDL 100-129 mg/dL Near or above optimalLDL 130-159 mg/dL Borderline highLDL 160-189 mg/dL HighLDL greater than 189 mg/dL Very high Cholesterol in VLDL Calc [Ma ss/Vol]Ordered By: Eduardo Monk on 11-18-2022 Cholesterol in VLDL [Mass/Vol] 28 mg/dL [facility] Serum or plasma high density lipoprotein (HDL) cholesterol measurementOrdered By: Eduardo Monk on 11-18-2022 Cholesterol in HDL [Mass/Vol] 46 mg/dL 23-92 [facility] Comment on above: HDL CHOL ATP-III CLA SSIFICATION Cardiovascular RiskHDL > or equal to 60 mg/dL LOWHDL < 40 mg/dL HIGH Serum or plasma total choles terol/high density lipoprotein (HDL) cholesterol mass ratOrdered By: Eduardo Monk on 11-18-2022 Cholesterol.total/Chol esterol in HDL [Mass ratio] 3.5 {ratio} <5.0 [facility] Thyrotropin [Units/volume] i n Serum or PlasmaOrdered By: Eduardo Monk on 11-18-2022 TSH Qn 2.13 m[IU]/L 0.45-5.33 [facility] Triglyceride [Mass/volume] i n Serum or PlasmaOrdered By: Eduardo Monk on 11-18-2022 Triglyceride [Mass/Vol] 144 mg/dL 0-149 [facility] Comment on above: TRIG ATP III CLASSIF ICATIONTRIG less than 150 mg/dL NormalTRIG 150-199 mg/dL Borderline highTRIG 200-500 mg/dL High TRIG greater than 500 mg/dL Very highStandard traceable to the Center for Disease Conrtrol and Prevention (CDC) test method. Vitamin D+Metabolites [Mass/ volume] in Serum or PlasmaOrdered By: Eduardo Monk on 11-18-2022 Vitamin D+Metabolites [Mass/Vol] 50.4 ng/mL 30-100 [facility] Comment on above: VITAMIN D STATUS 25( OH)VITAMIN D RANGE (ng/mL) Deficient <20 Insufficient 20 to <30Sufficient 30 to 100Reference: Bin MF,Lakshmi NC, Cristian SMART, et al. Evaluation,treatment, and prevention of vitamin D deficiency; an Endocrine Society clinical practice guideline. JCEM. 2010; 96(7):1911-30. CBC AUTO DIFFon 07-25-2022 BASO # 0.1 103/ul Normal 0.0-0.1 [facility] Comment on above: Performed By: #### A 1C #### [facility] [address] [place] [address] Dr. Bebeto Alvarado Basophils/100 WBC (Bld) 0.6 % Normal 0.2-2.0 [facility] Comment on above: Performed By: #### A 1C #### [facility] [address] [place] [address] Dr. Bebeto Alvarado EO # 0.2 103/ul Normal 0.0-0.7 [facility] Comment on above: Performed By: #### A 1C #### [facility] [address] [place] [address] Dr. Bebeto Alvarado Eosinophils/100 WBC (Bld) 2.3 % Normal 0.9-7.0 [facility] Comment on above: Performed By: #### A 1C #### [facility] [address] [place] [address] Dr. Bebeto Alvarado Erythrocyte distribution width (RBC) [Ratio] 13.8 % Normal 11.0-15.0 [facility] Comment on above: Performed By: #### A 1C #### [facility] [address] [place] [address] Dr. Bebeto Alvarado Hematocrit (Bld) [Volume fraction] 41.2 % Normal 36.0-48.0 [facility] Comment on above: Performed By: #### A 1C #### [facility] [address] [place] [address] Dr. Bebeto Alvarado Hemoglobin (Bld) [Mass/Vol] 13.2 g/dL Normal 12.0-16.0 [facility] Comment on above: Performed By: #### A 1C #### [facility] [address] [place] [address] Dr. Bebeto Alvarado IG # 0.03 10e3/ul Normal 0.00-0.03 [facility] Comment on above: Performed By: #### A 1C #### [facility] [address] [place] [address] Dr. Bebeto Alvarado IG % 0.4 % Normal 0.0-0.5 [facility] Comment on above: Performed By: #### A 1C #### [facility] [address] [place] [address] Dr. Bebeto Alvarado LYMPH # 2.1 103/ul Normal 1.2-3.8 [facility] Comment on above: Performed By: #### A 1C #### [facility] [address] [place] [address] Dr. Bebeto Alvarado Lymphocytes/100 WBC (Bld) 25.9 % Normal 20.5-60.0 [facility] Comment on above: Performed By: #### A 1C #### [facility] [address] [place] [address] Dr. Bebeto Alvarado MANUAL DIFF REQ NO Normal [facility] Comment on above: Performed By: #### A 1C #### [facility] [address] [place] [address] Dr. Bebeto Alvarado MCH (RBC) [Entitic mass] 28.0 pg Normal 26.7-34.0 [facility] Comment on above: Performed By: #### A 1C #### [facility] [address] [place] [address] Dr. Bebeto Alvarado MCHC (RBC) [Mass/Vol] 32.0 g/dL Normal 29.9-35.2 [facility] Comment on above: Performed By: #### A 1C #### [facility] [address] [place] [address] Dr. Bebeto Alvarado MCV (RBC) [Entitic vol] 87.5 fL Normal 81.0-99.0 [facility] Comment on above: Performed By: #### A 1C #### [facility] [address] [place] [address] Dr. Bebeto Alvarado MONO # 0.5 103/ul Normal 0.3-0.8 [facility] Comment on above: Performed By: #### A 1C #### [facility] [address] [place] [address] Dr. Bebeto Alvarado Monocytes/100 WBC (Bld) 6.6 % Normal 1.7-12.0 [facility] Comment on above: Performed By: #### A 1C #### [facility] [address] [place], [place] [id number] Dr. Bebeto Alvarado NEUT # 5.1 103/ul Normal 1.4-6.5 [facility] [facility] Comment on above: Performed By: #### A 1C #### [facility] [address] [place] [address] Dr. Bebeto Alvarado Neutrophils/100 WBC (Bld) 64.2 % Normal 43.0-75.0 [facility] Comment on above: Performed By: #### A 1C #### [facility] [address] [place] [address] Dr. Bebeto Alvarado Platelet mean volume (Bld) [Entitic vol] 11.2 fL Normal 9.5-13.5 [facility] Comment on above: Performed By: #### A 1C #### [facility] [address] [place] [address] Dr. Bebeto Alvarado PLT 252 103/ul Normal 150-450 [facility] Comment on above: Performed By: #### A 1C #### [facility] [address] [place] [address] Dr. Bebeto Alvarado RBC 4.71 106/ul Normal 4.20-5.40 [facility] Comment on above: Performed By: #### A 1C #### [facility] [address] [place] [address] Dr. Bebeto Alvarado WBC 8.0 103/ul Normal 4.0-11.0 [facility] Comment on above: Performed By: #### A 1C #### [facility] [address] [place] [address] Dr. Bebeto Alvarado GLYCOHEMOGLOBIN A1Con 2022 ADA RECOMMENDATION SEE BELOW Normal [facility] Comment on above: Result Comment: ADA RECOMMENDED LIMIT 4.0 - 6.0 ADA THERAPEUTIC TARGET < 7.0 ACTION SUGGESTED > 7.0 Performed By: #### A 1C #### [facility] [address] [place] [address] Dr. Bebeto Alvarado Glucose [Mass/Vol] 114 mg/dL Normal [facility] Comment on above: Performed By: #### A 1C #### [facility] [address] [place] [address] Dr. Bebeto Alvarado HbA1c (Bld) [Mass fraction] 5.6 % Normal 4.5-6.2 [facility] Comment on above: Performed By: #### A 1C #### [facility] [address] [address] [address] Bebeto Alvarado IRONon 07-25-2022 Iron [Mass/Vol] 60.0 ug/dL Normal 50.0-170.0 [facility] Comment on above: Performed By: #### V ITB12, IRON #### [facility] [address] [address] [address] Bebeto Alvarado LIPID PROFILEon 07-25-2022 CHOL-HDL RATIO NORM SEE BELOW Normal [facility] Comment on above: Result Comment: 3.3 - 4.4 LOW RISK 4.4 - 7.1 AVERAGE RISK 7.1 - 11.0 MODERATE RISK >11.0 HIGH RISK Performed By: #### C MP, LIPID #### [facility] [address] [address] [address] Bebeto Alvarado Cholesterol [Mass/Vol] 144 mg/dL Normal <=200 Th [facility] Comment on above: Performed By: #### C MP, LIPID #### [facility] [address] [address] [address] Bebeto Alvarado Cholesterol in HDL [Mass/Vol] 39 mg/dL Critically low 40-60 [facility] Comment on above: Performed By: #### C MP, LIPID #### [facility] [address] [address] [address] Bebeto Alvarado Cholesterol in LDL [Mass/Vol] 74.6 mg/dL Normal [facility] Comment on above: Performed By: #### C MP, LIPID #### [facility] [address] [address] [address] Bebeto Alvarado Cholesterol.total/Chol esterol in HDL [Mass ratio] 3.7 {ratio} Normal [facility] Comment on above: Performed By: #### C MP, LIPID #### [facility] [address] [address] [address] Bebeto Alvarado HDL NORMAL > or = 60 mg/dl - LO W CARDIOVASCULAR RISK <40 mg/dl - HIGH CARDIOVASCULAR RISK Normal [facility] Comment on above: Performed By: #### C MP, LIPID #### [facility] [address] [address] [address] Bebeto Alvarado LDL CALC NORMAL SEE BELOW Normal [facility] Comment on above: Result Comment: <100 mg/dl OPTIMAL 100 - 129 mg/dl NEAR OR ABOVE OPTIMAL 130 - 159 mg/dl BORDERLINE HIGH 160 - 189 mg/dl HIGH >190 mg/dl VERY HIGH Performed By: #### C MP, LIPID #### [facility] [address] [address] [address] Bebeto Alvarado Triglyceride [Mass/Vol] 152 mg/dL Critically high <=150 [facility] Comment on above: Performed By: #### C MP, LIPID #### [facility] [address] [place] [address] Dr. Bebeto Alvarado VLDL CALC 30.4 mg/dL Normal [facility] Comment on above: Performed By: #### C MP, LIPID #### [facility] [address] [address] [address] Bebeto Alvarado PROF 14(COMP METB)on 023 Albumin [Mass/Vol] 3.7 g/dL Normal 3.4-5.0 [facility] Comment on above: Performed By: #### C MP, LIPID #### [facility] [address] [address] [address] Bebeto Alvarado Albumin/Globulin [Mass ratio] 0.9 {ratio} Normal [facility] Comment on above: Performed By: #### C MP, LIPID #### [facility] [address] [address] [address] Bebeto Alvarado ALP [Catalytic activity/Vol] 90 U/L Normal 46-116 [facility] Comment on above: Performed By: #### C MP, LIPID #### [facility] [address] [address] [address] Bebeto Alvarado ALT [Catalytic activity/Vol] 38 U/L Normal 14-59 [facility] Comment on above: Performed By: #### C MP, LIPID #### [facility] [address] [address] [address] Bebeto Alvarado Anion gap [Moles/Vol] 12.1 mmol/L Normal [place] Comment on above: Performed By: #### C MP, LIPID #### [facility] [address] [address] [address] Bebeto Alvarado AST [Catalytic activity/Vol] 26 U/L Normal 15-37 [facility] Comment on above: Performed By: #### C MP, LIPID #### [facility] [address] [address] [address] Bebeto Alvarado Bilirubin [Mass/Vol] 0.3 mg/dL Normal 0.2-1.0 [facility] Comment on above: Performed By: #### C MP, LIPID #### [facility] [address] [place] [address] Dr. Bebeto Alvarado Calcium [Mass/Vol] 9.3 mg/dL Normal 8.5-10.1 [facility] Comment on above: Performed By: #### C MP, LIPID #### [facility] [address] [place] [address] Dr. Bebeto Alvarado Chloride [Moles/Vol] 107 mmol/L Normal 98-107 [facility] Comment on above: Performed By: #### C MP, LIPID #### [facility] [address] [place] [address] Dr. Bebeto Alvarado CO2 [Moles/Vol] 27.9 mmol/L Normal 21.0-32.0 [facility] Comment on above: Performed By: #### C MP, LIPID #### [facility] [address] [place] [address] Dr. Bebeto Alvarado Creatinine [Mass/Vol] 0.95 mg/dL Normal 0.55-1.02 [facility] Comment on above: Performed By: #### C MP, LIPID #### [facility] [address] [address] [address] Bebeto Alvarado EGFR-AF VIETNAMESE >60 Normal >=60 [facility] Comment on above: Performed By: #### C MP, LIPID #### [facility] [address] [address] [address] Bebeto Alvarado EGFR-NON AF VIETNAMESE 60 mL/min/1.73m2 Normal >=60 [facility] Comment on above: Performed By: #### C MP, LIPID #### [facility] [address] [address] [address] Bebeto Alvarado Globulin (S) [Mass/Vol] 3.9 g/dL Normal [facility] Comment on above: Performed By: #### C MP, LIPID #### [facility] [address] [address] [address] Bebeto Alvarado Glucose [Mass/Vol] 108 mg/dL Critically high 74-106 [facility] Comment on above: Performed By: #### C MP, LIPID #### [facility] [address] [address] [address] Bebeto Alvarado Potassium [Moles/Vol] 4.0 mmol/L Normal 3.5-5.1 [facility] Comment on above: Performed By: #### C MP, LIPID #### [facility] [address] [address] [address] Bebeto Alvarado Protein [Mass/Vol] 7.6 g/dL Normal 6.4-8.2 [facility] Comment on above: Performed By: #### C MP, LIPID #### [facility] [address] [address] [address] Bebeto Alvarado Sodium [Moles/Vol] 143 mmol/L Normal 136-145 [facility] Comment on above: Performed By: #### C MP, LIPID #### [facility] [address] [address] [address] Bebeto Alvarado Urea nitrogen [Mass/Vol] 15.0 mg/dL Normal 7.0-18.0 [facility] Comment on above: Performed By: #### C MP, LIPID #### [facility] [address] [address] [address] Bebeto Alvarado Urea nitrogen/Creatinine [Mass ratio] 15.8 mg/mg Normal [facility] Comment on above: Performed By: #### C MP, LIPID #### [facility] [address] [place] [address] Dr. Bebeto Alvarado UA RANDOM W/MICROSCOPICon BACTERIA NONE SEEN Normal NONE SEEN [facility] Comment on above: Performed By: #### A 1C #### [facility] [address] [place] [address] Dr. Bebeto Alvarado Bilirubin Ql (U) Negative Normal NEGATIVE [facility] Comment on above: Performed By: #### A 1C #### [facility] [address] [place] [address] Dr. Bebeto Alvarado CAST NONE SEEN Normal NONE SEEN [facility] Comment on above: Performed By: #### A 1C #### [facility] [address] [place] [address] Dr. Bebeto Alvarado Clarity (U) CLEAR Normal CLEAR [facility] Comment on above: Performed By: #### A 1C #### [facility] [address] [place] [address] Dr. Bebeto Alvarado Color (U) YELLOW Normal YELLOW [facility] Comment on above: Performed By: #### A 1C #### [facility] [address] [place] [address] Dr. Bebeto Alvarado Crystals LM Nom (Urine sed) NONE SEEN Normal NONE SEEN [facility] Comment on above: Performed By: #### A 1C #### [facility] [address] [place] [address] Dr. Bebeto Alvarado Epithelial cells LM Ql (Urine sed) NONE SEEN Normal NONE SEEN /RARE [facility] Comment on above: Performed By: #### A 1C #### [facility] [address] [place] [address] Dr. Bebeto Alvarado Glucose Ql (U) Negative Normal NEGATIVE [facility] Comment on above: Performed By: #### A 1C #### [facility] [address] [place] [address] Dr. Bebeto Alvarado Hemoglobin Ql (U) Negative Normal NEGATIVE [facility] Comment on above: Performed By: #### A 1C #### [facility] [address] [place] [address] Dr. Bebeto Alvarado Ketones Ql (U) Negative Normal NEGATIVE [facility] Comment on above: Performed By: #### A 1C #### [facility] [address] [place] [address] Dr. Bebeto Alvarado LEUKOCYTES Negative Normal NEGATIVE [facility] Comment on above: Performed By: #### A 1C #### [facility] [address] [place] [address] Dr. Bebeto Alvarado MUCOUS NONE SEEN Normal NONE SEEN [facility] Comment on above: Performed By: #### A 1C #### [facility] [address] [place] [address] Dr. Bebeto Alvarado Nitrite Ql (U) Negative Normal NEGATIVE [facility] Comment on above: Performed By: #### A 1C #### [facility] [address] [place] [address] Dr. Bebeto Alvarado pH (U) 5.5 [pH] Normal 5-9 [facility] Comment on above: Performed By: #### A 1C #### [facility] [address] [place] [address] Dr. Bebeto Alvarado RBC NONE SEEN Abnormal 0-2 [facility] Comment on above: Performed By: #### A 1C #### [facility] [address] [place] [address] Dr. Bebeto Alvarado SPEC GRAVITY 1.030 Abnormal 1.005-<=1.02 5 [facility] Comment on above: Performed By: #### A 1C #### [facility] [address] [place] [address] Dr. Bebeto Alvarado UA PROTEIN Negative Normal NEGATIVE/ TRACE [facility] Comment on above: Performed By: #### A 1C #### [facility] [address] [place] [address] Dr. Bebeto Alvarado Urobilinogen Qn (U) 0.2 {Katerin'U}/dL Normal 0.2 - 1. 0 [facility] Comment on above: Performed By: #### A 1C #### [facility] [address] [place] [address] Dr. Bebeto Alvarado WBC NONE SEEN Normal NONE SEEN [facility] Comment on above: Performed By: #### A 1C #### [facility] [address] [place] [address] Dr. Bebeto Alvarado VITAMIN B12on 07-25-2022 Cobalamin (Vitamin B12) [Mass/Vol] 1684.0 pg/mL Critically high 193.0-986.0 [facility] Comment on above: Performed By: #### V ITB12, IRON #### [facility] [address] [address] [address] Bebeto Alvarado PROF CHEM 8 (BAS METB)on Anion gap [Moles/Vol] 12.2 mmol/L Normal [place] Comment on above: Performed By: #### B MP #### [facility] [address] [place] [address] Dr. Bebeto Alvarado Calcium [Mass/Vol] 8.9 mg/dL Normal 8.5-10.1 [facility] Comment on above: Performed By: #### B MP #### [facility] [address] [place] [address] Dr. Bebeto Alvarado Chloride [Moles/Vol] 105 mmol/L Normal 98-107 [facility] Comment on above: Performed By: #### B MP #### [facility] [address] [place] [address] Dr. Bebeto Alvarado CO2 [Moles/Vol] 29.6 mmol/L Normal 21.0-32.0 [facility] Comment on above: Performed By: #### B MP #### [facility] [address] [place] [address] Dr. Bebeto Alvarado Creatinine [Mass/Vol] 0.95 mg/dL Normal 0.55-1.02 [facility] Comment on above: Performed By: #### B MP #### [facility] [address] [place] [address] Dr. Bebeto Alvarado EGFR-AF VIET[place]ESE >60 Normal >=60 [facility] Comment on above: Performed By: #### B MP #### [facility] [address] [place] [address] Dr. Bebeto Alvarado EGFR-NON AF VIET[place]ESE 60 mL/min/1.73m2 Normal >=60 [facility] Comment on above: Performed By: #### B MP #### [facility] [address] [address] [address] Bebeto Alvarado Glucose [Mass/Vol] 101 mg/dL Normal 74-106 [facility] Comment on above: Performed By: #### B MP #### [facility] [address] [address] [address] Bebeto Alvarado Potassium [Moles/Vol] 3.8 mmol/L Normal 3.5-5.1 [facility] Comment on above: Performed By: #### B MP #### [facility] [address] [place] [address] Dr. Bebeto Alvarado Sodium [Moles/Vol] 143 mmol/L Normal 136-145 [facility] Comment on above: Performed By: #### B MP #### [facility] [address] [place] [address] Dr. Bebeto Alvarado Urea nitrogen [Mass/Vol] 16.0 mg/dL Normal 7.0-18.0 [facility] Comment on above: Performed By: #### B MP #### [facility] [address] [place] [address] Dr. Bebeto Alvarado Urea nitrogen/Creatinine [Mass ratio] 16.8 mg/mg Normal [facility] Comment on above: Performed By: #### B MP #### [facility] [address] [place] [address] Dr. Bebeto Alvarado CBC AUTO DIFFon 11-21-2021 BASO # 0.1 103/ul Normal 0.0-0.1 [facility] Comment on above: Performed By: #### A 1C #### [facility] [address] [place] [address] Dr. Bebeto Alvarado Basophils/100 WBC (Bld) 1.0 % Normal 0.2-2.0 [facility] Comment on above: Performed By: #### A 1C #### [facility] [address] [place] [address] Dr. Bebeto Alvarado EO # 0.2 103/ul Normal 0.0-0.7 [facility] Comment on above: Performed By: #### A 1C #### [facility] [address] [place] [address] Dr. Bebeto Alvarado Eosinophils/100 WBC (Bld) 3.3 % Normal 0.9-7.0 [facility] Comment on above: Performed By: #### A 1C #### [facility] [address] [place] [address] Dr. Bebeto Alvarado Erythrocyte distribution width (RBC) [Ratio] 13.8 % Normal 11.0-15.0 [facility] Comment on above: Performed By: #### A 1C #### [facility] [address] [place] [address] Dr. Bebeto Alvarado Hematocrit (Bld) [Volume fraction] 38.8 % Normal 36.0-48.0 [facility] Comment on above: Performed By: #### A 1C #### [facility] [address] [place] [address] Dr. Bebeto Alvarado Hemoglobin (Bld) [Mass/Vol] 12.5 g/dL Normal 12.0-16.0 [facility] Comment on above: Performed By: #### A 1C #### [facility] [address] [place] [address] Dr. Bebeto Alvarado IG # 0.02 10e3/ul Normal 0.00-0.03 [facility] Comment on above: Performed By: #### A 1C #### [facility] [address] [place] [address] Dr. Bebeto Alvarado IG % 0.3 % Normal 0.0-0.5 [facility] Comment on above: Performed By: #### A 1C #### [facility] [address] [place] [address] Dr. Bebeto Alvarado LYMPH # 1.9 103/ul Normal 1.2-3.8 [facility] Comment on above: Performed By: #### A 1C #### [facility] [address] [place] [address] Dr. Bebeto Alvarado Lymphocytes/100 WBC (Bld) 29.6 % Normal 20.5-60.0 [facility] Comment on above: Performed By: #### A 1C #### [facility] [address] [place] [address] Dr. Bebeto Alvarado MANUAL DIFF REQ NO Normal [facility] Comment on above: Performed By: #### A 1C #### [facility] [address] [place] [address] Dr. Bebeto Alvarado MCH (RBC) [Entitic mass] 28.0 pg Normal 26.7-34.0 [facility] Comment on above: Performed By: #### A 1C #### [facility] [address] [place] [address] Dr. Bebeto Alvarado MCHC (RBC) [Mass/Vol] 32.2 g/dL Normal 29.9-35.2 [facility] Comment on above: Performed By: #### A 1C #### [facility] [address] [place] [address] Dr. Bebeto Alvarado MCV (RBC) [Entitic vol] 86.8 fL Normal 81.0-99.0 [facility] Comment on above: Performed By: #### A 1C #### [facility] [address] [place] [address] Dr. Bebeto Alvarado MONO # 0.4 103/ul Normal 0.3-0.8 [facility] Comment on above: Performed By: #### A 1C #### [facility] [address] [place] [address] Dr. Bebeto Alvarado Monocytes/100 WBC (Bld) 5.7 % Normal 1.7-12.0 [facility] Comment on above: Performed By: #### A 1C #### [facility] [address] [place] [address] Dr. Bebeto Alvarado NEUT # 3.8 103/ul Normal 1.4-6.5 [facility] Comment on above: Performed By: #### A 1C #### [facility] [address] [place] [address] Dr. Bebeto Alvarado Neutrophils/100 WBC (Bld) 60.1 % Normal 43.0-75.0 [facility] Comment on above: Performed By: #### A 1C #### [facility] [address] [address] [address] Bebeto Alvarado Platelet mean volume (Bld) [Entitic vol] 11.0 fL Normal 9.5-13.5 [facility] Comment on above: Performed By: #### A 1C #### [facility] [address] [place] [address] Dr. Bebeto Alvarado PLT 264 103/ul Normal 150-450 [facility] Comment on above: Performed By: #### A 1C #### [facility] [address] [address] [address] Bebeto Alvarado RBC 4.47 106/ul Normal 4.20-5.40 [facility] Comment on above: Performed By: #### A 1C #### [facility] [address] [place] [address] Dr. Bebeto Alvarado WBC 6.3 103/ul Normal 4.0-11.0 [facility] Comment on above: Performed By: #### A 1C #### [facility] [address] [place] [address] Dr. Bebeto Alvarado GLYCOHEMOGLOBIN A1Con 2021 ADA RECOMMENDATION SEE BELOW Normal [facility] Comment on above: Result Comment: ADA RECOMMENDED LIMIT 4.0 - 6.0 ADA THERAPEUTIC TARGET < 7.0 ACTION SUGGESTED > 7.0 Performed By: #### A 1C #### [facility] [address] [place] [address] Dr. Bebeto Alvarado Glucose [Mass/Vol] 105 mg/dL Normal [facility] Comment on above: Performed By: #### A 1C #### [facility] [address] [place] [address] Dr. Bebeto Alvarado HbA1c (Bld) [Mass fraction] 5.3 % Normal 4.5-6.2 [facility] Comment on above: Performed By: #### A 1C #### [facility] [address] [place] [address] Dr. Bebeto Alvarado IRONon 11-21-2021 Iron [Mass/Vol] 59.0 ug/dL Normal 50.0-170.0 [facility] Comment on above: Performed By: #### A 1C #### [facility] [address] [address] [address] Bebeto Alvarado LIPID PROFILEon 11-21-2021 CHOL-HDL RATIO NORM SEE BELOW Normal [facility] Comment on above: Result Comment: 3.3 - 4.4 LOW RISK 4.4 - 7.1 AVERAGE RISK 7.1 - 11.0 MODERATE RISK >11.0 HIGH RISK Performed By: #### C MP, LIPID #### [facility] [address] [address] [address] Bebeto Alvarado Cholesterol [Mass/Vol] 139 mg/dL Normal <=200 Th [facility] Comment on above: Performed By: #### C MP, LIPID #### [facility] [address] [address] [address] Bebeto Alvarado Cholesterol in HDL [Mass/Vol] 35 mg/dL Critically low 40-60 [facility] Comment on above: Performed By: #### C MP, LIPID #### [facility] [address] [address] [address] Bebeto Alvarado Cholesterol in LDL [Mass/Vol] 69.6 mg/dL Normal [facility] Comment on above: Performed By: #### C MP, LIPID #### [facility] [address] [place], [place] [address] Dr. Bebeto Alvarado Cholesterol.total/Chol esterol in HDL [Mass ratio] 4.0 {ratio} Normal [facility] Comment on above: Performed By: #### C MP, LIPID #### [facility] [facility] [address] [address] [address] Bebeto Alvarado HDL NORMAL > or = 60 mg/dl - LO W CARDIOVASCULAR RISK <40 mg/dl - HIGH CARDIOVASCULAR RISK Normal [facility] Comment on above: Performed By: #### C MP, LIPID #### [facility] [address] [address] [address] Bebeto Alvarado LDL CALC NORMAL SEE BELOW Normal [facility] Comment on above: Result Comment: <100 mg/dl OPTIMAL 100 - 129 mg/dl NEAR OR ABOVE OPTIMAL 130 - 159 mg/dl BORDERLINE HIGH 160 - 189 mg/dl HIGH >190 mg/dl VERY HIGH Performed By: #### C MP, LIPID #### [facility] [address] [place] [address] Dr. Bebeto Alvarado Triglyceride [Mass/Vol] 172 mg/dL Critically high <=150 [facility] Comment on above: Performed By: #### C MP, LIPID #### [facility] [address] [place] [address] Dr. Bebeto Alvarado VLDL CALC 34.4 mg/dL Normal [facility] Comment on above: Performed By: #### C MP, LIPID #### [facility] [address] [place] [address] Dr. Bebeto Alvarado PROF 14(COMP METB)on 022 Albumin [Mass/Vol] 3.8 g/dL Normal 3.4-5.0 [facility] Comment on above: Performed By: #### C MP, LIPID #### [facility] [address] [place] [address] Dr. Bebeto Alvarado Albumin/Globulin [Mass ratio] 1.1 {ratio} Normal [facility] Comment on above: Performed By: #### C MP, LIPID #### [facility] [address] [place] [address] Dr. Bebeto Alvarado ALP [Catalytic activity/Vol] 96 U/L Normal 46-116 [facility] Comment on above: Performed By: #### C MP, LIPID #### [facility] [address] [place] [address] Dr. Bebeto Alvarado ALT [Catalytic activity/Vol] 25 U/L Normal 14-59 [facility] Comment on above: Performed By: #### C MP, LIPID #### [facility] [address] [place] [address] Dr. Bebeto Alvarado Anion gap [Moles/Vol] 11.8 mmol/L Normal [place] Comment on above: Performed By: #### C MP, LIPID #### [facility] [address] [place] [address] Dr. Bebeto Alvarado AST [Catalytic activity/Vol] 20 U/L Normal 15-37 [facility] Comment on above: Performed By: #### C MP, LIPID #### [facility] [address] [place] [address] Dr. Bebeto Alvarado Bilirubin [Mass/Vol] 0.4 mg/dL Normal 0.2-1.0 [facility] Comment on above: Performed By: #### C MP, LIPID #### [facility] [address] [place] [address] Dr. Bebeto Alvarado Calcium [Mass/Vol] 8.8 mg/dL Normal 8.5-10.1 [facility] Comment on above: Performed By: #### C MP, LIPID #### [facility] [address] [place] [address] Dr. Bebeto Alvarado Chloride [Moles/Vol] 106 mmol/L Normal 98-107 [facility] Comment on above: Performed By: #### C MP, LIPID #### [facility] [address] [place] [address] Dr. Bebeto Alvarado CO2 [Moles/Vol] 27.0 mmol/L Normal 21.0-32.0 [facility] Comment on above: Performed By: #### C MP, LIPID #### [facility] [address] [place] [address] Dr. Bebeto Alvarado Creatinine [Mass/Vol] 0.97 mg/dL Normal 0.55-1.02 [facility] Comment on above: Performed By: #### C MP, LIPID #### [facility] [address] [place] [address] Dr. Bebeto Alvarado EGFR-AF VIETNAMESE >60 Normal >=60 [facility] Comment on above: Performed By: #### C MP, LIPID #### [facility] [address] [place] [address] Dr. Bebeto Alvarado EGFR-NON AF VIETNAMESE 59 mL/min/1.73m2 Critically low >=60 [facility] Comment on above: Performed By: #### C MP, LIPID #### [facility] [address] [place] [address] Dr. Bebeto Alvarado Globulin (S) [Mass/Vol] 3.4 g/dL Normal [facility] Comment on above: Performed By: #### C MP, LIPID #### [facility] [address] [address] [address] Bebeto Alvarado Glucose [Mass/Vol] 103 mg/dL Normal 74-106 [facility] Comment on above: Performed By: #### C MP, LIPID #### [facility] [address] [place] [address] Dr. Bebeto Alvarado Potassium [Moles/Vol] 3.8 mmol/L Normal 3.5-5.1 [facility] Comment on above: Performed By: #### C MP, LIPID #### [facility] [address] [place] [address] Dr. Bebeto Alvarado Protein [Mass/Vol] 7.2 g/dL Normal 6.4-8.2 [facility] Comment on above: Performed By: #### C MP, LIPID #### [facility] [address] [place] [address] Dr. Bebeto Alvarado Sodium [Moles/Vol] 141 mmol/L Normal 136-145 [facility] Comment on above: Performed By: #### C MP, LIPID #### [facility] [address] [place] [address] Dr. Bebeto Alvarado Urea nitrogen [Mass/Vol] 11.0 mg/dL Normal 7.0-18.0 [facility] Comment on above: Performed By: #### C MP, LIPID #### [facility] [address] [place] [address] Dr. Bebeto Alvarado Urea nitrogen/Creatinine [Mass ratio] 11.3 mg/mg Normal [facility] Comment on above: Performed By: #### C MP, LIPID #### [facility] [address] [place] [address] Dr. Bebeto Alvarado URIC ACID SERUMon 11-21-2021 Urate [Mass/Vol] 7.3 mg/dL Critically high 2.6-6.0 [facility] Comment on above: Performed By: #### A 1C #### [facility] [address], [place] [address] Dr. Bebeto Alvarado VITAMIN B12on 11-21-2021 Cobalamin (Vitamin B12) [Mass/Vol] 2123.0 pg/mL Critically high 193.0-986.0 The [facility] Comment on above: Performed By: #### A 1C #### [facility] [address] [place] [address] Dr. Bebeto Alvarado Physician Referralon 022 Physician Referral [phone] [id number] Normal [facility] KNEE RIGHT 1 OR 2 VWSon KNEE RIGHT 1 OR 2 VWS [facility] Department of Radiology [address] [place] [phone] ======== Patient Name: MICHELLE BE : 1960 Sex: F Age: Race: White Pt. Location: Patient Status: O Ordered Date: 02/08/2019 10:40:00 AM Completed Date: 02/08/2019 10:38 AM Requesting Provider: AHSAN BINGHAM Attending Provider: AHSAN BINGHAM Report Copy To: Signs & Symptoms: S82.001A Unsp fracture of right patella, init for clos fx I10 History: [place] Comments: , , , Ordering Provider - [...] Electronically signed by:Debra Del Cid. Transcribed by: [email or web address], User Resident: Electronically Signed by: DEBRA DEL CID @ 02/08/2019 11:16 AM Normal [facility] Comment on above: Order Comment: , Vie ws (X-RAY, KNEE): Radiologic Protocol , Weight Bearing?: N , With or Without Brace/Cast/Collar: With , Views (X-RAY, KNEE): Radiologic Protocol , Weight Bearing?: N , With or Without Brace/Cast/Collar: With , , , Ordering Provider - AHSAN BINGHAM PA-C , KNEE RIGHT 1 OR 2 [facility] KNEE RIGHT 1 OR 2 [facility] Department of Radiology [address] [place] [phone] ======== Patient Name: MICHELLE BE : [...] complications. Electronically signed by:Tomasz Stoll. Transcribed by: [email or web address], User Resident: Electronically Signed by: TOMASZ STOLL @ 12/07/2018 11:14 AM Normal [facility] Comment on above: Order Comment: , Mabel ws (X-RAY, KNEE): Radiologic Protocol , Weight Bearing?: N , With or Without Brace/Cast/Collar: With , Views (X-RAY, KNEE): Radiologic Protocol , Weight Bearing?: N , With or Without Brace/Cast/Collar: With , , , Ordering Provider - AHSAN BINGHAM PA-C , KNEE RIGHT 1 OR 2 Son KNEE RIGHT 1 OR 2 VWS [facility] Department of Radiology [address] [place] [phone] ======== Patient Name: MICHELLE BE : [...] osteoarthritis Electronically signed by:Anup Ellison. Transcribed by: [email or web address], User Resident: Electronically Signed by: ANUP ELLISON @ 10/06/2018 02:48 PM Normal [facility] Comment on above: Order Comment: , Rossie ws (X-RAY, KNEE): Radiologic Protocol , Weight Bearing?: N , With or Without Brace/Cast/Collar: With , Views (X-RAY, KNEE): Radiologic Protocol , Weight Bearing?: N , With or Without Brace/Cast/Collar: With , , , Ordering Provider - AHSAN BINGHAM PA-C , KNEE RIGHT 1 OR 2 [facility] 08-05 KNEE RIGHT 1 OR 2 [facility] Department of Radiology [address] [place] [phone] ======== Patient Name: MICHELLE BE : [...] effusion Electronically signed by:Anup Ellison. Transcribed by: [email or web address], User Resident: Electronically Signed by: ANUP ELLISON @ 08/26/2018 04:56 PM [place] [facility] Comment on above: Order Comment: , Vie ws (X-RAY, KNEE): Radiologic Protocol , Weight Bearing?: N , With or Without Brace/Cast/Collar: With , Views (X-RAY, KNEE): Radiologic Protocol , Weight Bearing?: N , With or Without Brace/Cast/Collar: With , , , Ordering Provider - AHSAN BINGHAM PA-C , KNEE RIGHT 1 OR 2 VWSon 07-06 KNEE RIGHT 1 OR 2 VWS [facility] Department of Radiology [address] [place] [address] ======== Patient Name: MICHELLE BE : 1960 Sex: F Age: Race: White Pt. Location: 84 Patient Status: Ordered Date: 07/29/2018 2:10:00 PM Completed Date: 07/29/2018 02:12 PM Requesting Provider: AHSAN BINGHAM Attending Provider: Report Copy To: Signs & Symptoms: S82.001A Unsp fracture of right patella, init for clos fx I10 History: [place] Comments: , , , Ordering Provider - AHSAN BINGHAM PA-C , Exam: KNEE RIGHT 1 OR 2 [facility] ======== KNEE RIGHT 1 OR 2 [facility] 07/29/2018 2:12 PM EDT SIGNS AND [...] compartment Electronically signed by:Anup Ellison. Transcribed by: [email or web address], User Resident: Electronically Signed by: ANUP ELLISON @ 07/29/2018 03:41 PM Normal [facility] Comment on above: Order Comment: , Vie ws (X-RAY, KNEE): Radiologic Protocol , Weight Bearing?: N , With or Without Brace/Cast/Collar: With , Views (X-RAY, KNEE): Radiologic Protocol , Weight Bearing?: N , With or Without Brace/Cast/Collar: With , , , Ordering Provider - AHSAN BINGHAM PA-C , KNEE RIGHT 3 [facility] 9 KNEE RIGHT 3 [facility] Department of Radiology [address] [place] [phone] ======== Patient Name: MICHELLE BE : [...] knee Electronically signed by:Anup Ellison. Transcribed by: [email or web address], User Resident: Electronically Signed by: ANUP ELLISON @ 07/15/2018 03:31 PM Normal [facility] Comment on above: Order Comment: , Mabel ws (X-RAY, KNEE): Radiologic Protocol , Weight Bearing?: N , With or Without Brace/Cast/Collar: With , Views (X-RAY, KNEE): Radiologic Protocol , Weight Bearing?: N , With or Without Brace/Cast/Collar: With , , , Ordering Provider - AHSAN BINGHAM PA-C , Operative Reporton 9 Operative Report MR#: [id number] S [facility] Pt. Name: Michelle Be Room #: 0C [...] Duarte MD Date Trans: 07/03/2018 04:28 M[place]terry [id number] Normal [facility] *ANAEROBIC CULTUREon 019 *ANAEROBIC CULTURE Clinical Report: (D) Specimen/Source: SWAB/RT KNEE Collected: 07/02/2018 13:53 Status: Final Last Updated: 07/07/2018 08:02 CULT RES (Final) No Anaerobes Isolated 5 Days Normal [facility] Comment on above: Performed By: #### 3 0312 #### [address] *WOUND CULTUREon 07-02-2018 *WOUND CULTURE Clinical Report: (D) Specimen/Source: WOUND/INTRAOP SPEC Collected: 07/02/2018 13:53 Status: Final Last Updated: 07/07/2018 10:13 (1) #1 RT KNEE GRAM (Final) Rare Polys No Bacteria Seen CULT RES (Final) No Growth Day 5 Normal [facility] Comment on above: Order Comment: #1 RT KNEE Performed By: #### 3 1333 #### [address] [address] KNEE RIGHT 1 OR 2 [facility] 06-05 KNEE RIGHT 1 OR 2 S [facility] Department of Radiology [address] [place] [phone] ======== Patient Name: MICHELLE BE : [...] PATELLA Exam: KNEE RIGHT 1 OR 2 [facility] ======== KNEE RIGHT 1 OR 2 S 07/02/2018 2:00 PM EDT SIGNS AND SYMPTOMS: ORIF VS PERCUTANEOUS FIXATION RIGHT PATELLA TECHNOLOGIST COMMENTS: 1.58 mins of fluoro used by Dr Escalante LT knee screw fixation revision QUESTION FOR THE RADIOLOGIST: ORIF VS PERCUTANEOUS FIXATION RIGHT PATELLA PROTOCOL: AP(PA) and Lateral views were obtained. COMPARISON: None FINDINGS: Soft tissues: Bones: Joints: IMPRESSION: Documentation Electronically signed by:Debra Del Cid. Transcribed by: [email or web address], User Resident: Electronically Signed by: DEBRA DEL CID @ 07/02/2018 02:03 PM Normal The [facility] Comment on above: Order Comment: ORIF VS PERCUTANEOUS FIXATION RIGHT PATELLA POC GLUCOSE LABon 07-02-2018 Glucose [Mass/Vol] 108 mg/dL High 70-100 The [facility] Comment on above: Performed By: #### 8 5499 #### [facility] [address] [place] [address], [facility] APTTon 06-30-2018 aPTT Coag (Bld) [Time] 30.6 s Normal 25.0-35.0 Th e [facility] Comment on above: Result Comment: ALL RESULTS [...] THIS PURPOSE. Performed By: #### 5 6101, [id number] #### [facility] [address] [facility] [place] [address], [facility] BASIC METABOLIC PANELon 06-05 Calcium [Mass/Vol] 9.7 mg/dL Normal 8.6-10.3 The [facility] Comment on above: Performed By: #### 0 0071 #### [facility] [address] [place] [address], [facility] Chloride [Moles/Vol] 102 mmol/L Normal 98-107 The [facility] Comment on above: Performed By: #### 0 0071 #### [facility] [address] [place] [address], [facility] CO2 [Moles/Vol] 28 mmol/L Normal 21-31 The [facility] Comment on above: Performed By: #### 0 0071 #### [facility] [address] [place] [address], [facility] Creatinine [Mass/Vol] 1.20 mg/dL Normal 0.60-1.20 The [facility] Comment on above: Performed By: #### 0 0071 #### [facility] [address] [place] [address], [place] GFR/1.73 sq M predicted among blacks MDRD (S/P/Bld) [Vol rate/Area] 56 ml/min/1.73sq m Abnormal >60 The [facility] Comment on above: Performed By: #### 0 0071 #### [facility] [address] [place] [address], [place] GFR/1.73 sq M predicted among non-blacks MDRD (S/P/Bld) [Vol rate/Area] 47 ml/min/1.73sq m Abnormal >60 The [facility] Comment on above: Performed By: #### 0 0071 #### [facility] [address] [place] [address], [facility] Glucose [Mass/Vol] 97 mg/dL Normal 70-100 The [facility] Comment on above: Performed By: #### 0 0071 #### [facility] [address] [place] [address], [facility] Potassium [Moles/Vol] 4.1 mmol/L Normal 3.5-5.1 The [facility] Comment on above: Performed By: #### 0 0071 #### [facility] [address] [place] [address], [place] Sodium [Moles/Vol] 137 mmol/L Normal 136-145 The [facility] Comment on above: Performed By: #### 0 0071 #### [facility] [address] [place] [address], [facility] Urea nitrogen [Mass/Vol] 19 mg/dL Normal 7-25 The [facility] Comment on above: Performed By: #### 0 0071 #### [facility] [address] [place] [address], [place] CBC W/DIFFon 06-30-2018 ABS BASOPHILS 0.1 10*3/uL Normal 0.0-0.2 The [facility] Comment on above: Performed By: #### 5 0103 #### [facility] [address] [place] [address], [facility] ABS IMM GRANS 0.0 10*3/uL Normal 0.0-0.2 The [facility] Comment on above: Performed By: #### 5 0103 #### [facility] [address] [facility] [place] [address], [facility] ABS NEUTROPHILS 6.4 10*3/uL Normal 1.6-7.6 The [facility] Comment on above: Performed By: #### 5 0103 #### [facility] [address] [place] [address], [facility] Basophils/100 WBC (Bld) 0.7 % Normal 0.0-1.0 The [facility] Comment on above: Performed By: #### 5 0103 #### [facility] [address] [place] [address], [facility] Eosinophils (Bld) [#/Vol] 0.2 10*3/uL Normal 0.0-0.5 The [facility] Comment on above: Performed By: #### 5 0103 #### [facility] [address] [facility] [place] [address], [facility] Eosinophils/100 WBC (Bld) 1.5 % Normal 0.0-6.0 The [facility] Comment on above: Performed By: #### 5 0103 #### [facility] [address] [facility]. [address] Erythrocyte distribution width (RBC) [Ratio] 14.4 % Normal 11.5-15.0 The [facility] Comment on above: Performed By: #### 3 #### [facility] [address] Hematocrit (Bld) [Volume fraction] 40.6 % Normal 36.0-45.0 The [facility] Comment on above: Performed By: #### 5 3 #### [facility] [address] [facility]. [address] Hemoglobin (Bld) [Mass/Vol] 13.3 g/dL Normal 12.0-15.0 The [facility] Comment on above: Performed By: #### 3 #### [facility] [address] [place] [address], [facility] IMMATURE GRANS 0.4 % Normal 0.0-1.0 The [facility] Comment on above: Performed By: #### 102 #### [facility] [address] Lymphocytes (Bld) [#/Vol] 2.6 10*3/uL Normal 1.2-4.0 The [facility] Comment on above: Performed By: #### 102 #### [facility] [address] Lymphocytes/100 WBC (Bld) 26.5 % Normal 20.0-45.0 The [facility] Comment on above: Performed By: #### 5 3 #### [facility] [address] MCH (RBC) [Entitic mass] 27.4 pg Normal 27.0-33.0 The [facility] Comment on above: Performed By: #### 3 #### [facility] [address] MCHC (RBC) [Mass/Vol] 32.8 g/dL Normal 32.0-35.0 The [facility] Comment on above: Performed By: #### 5 3 #### [facility] [address] [place] [address], [facility] MCV (RBC) [Entitic vol] 83.5 fL Normal 82.0-98.0 The [facility] Comment on above: Performed By: #### 3 #### [facility] [address] [place] [address], [facility] Monocytes (Bld) [#/Vol] 0.5 10*3/uL Normal 0.1-1.0 The [facility] Comment on above: Performed By: #### 5 3 #### [facility] [address] [place] [address], [facility] MONOS 5.0 % Normal 5.0-12.0 The [facility] Comment on above: Performed By: #### 5 0103 #### [facility] [address] [place] [address], [facility] Neutrophils/100 WBC (Bld) 65.9 % Normal 40.0-72.0 The [facility] Comment on above: Performed By: #### 102 #### [facility] [address] [place] [id number], [facility] Nucleated RBC/100 WBC (Bld) [Ratio] 0 % Normal 0-0 The [facility] Comment on above: Performed By: #### 102 #### [facility] [address] [place] [address], [facility] PLAT CNT 290 10*3/uL Normal 150-400 The [facility] Comment on above: Performed By: #### 102 #### [facility] [address] [place] [id number], [facility] RBC (Bld) [#/Vol] 4.86 10*6/uL Normal 3.80-5.00 The [facility] Comment on above: Performed By: #### 3 #### [facility] [address] [place] [address], [facility] WBC (Bld) [#/Vol] 9.68 10*3/uL Normal 4.00-10.60 The [facility] Comment on above: Performed By: #### 3 #### [facility] [address] [place] [address], [facility] KNEE RIGHT 1 OR 2 VWSon 06-05 KNEE RIGHT 1 OR 2 VWS [facility] Department of Radiology [address] [place] [address] ======== Patient Name: MICHELLE BE : 1960 Sex: F Age: Race: White Pt. 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 Transcribed by: [email or web address], User Resident: Electronically Signed by: DEBRA DEL CID @ 06/30/2018 11:52 AM Normal [facility] Comment on above: Order Comment: , Mabel ws (X-RAY, KNEE): Radiologic Protocol , Weight Bearing?: N , With or Without Brace/Cast/Collar: With , Views (X-RAY, KNEE): Radiologic Protocol , Weight Bearing?: N , With or Without Brace/Cast/Collar: With , , , Ordering Provider - AHSAN BINGHAM PA-C , PROTHROMBIN TIMEon 9 INR Coag (PPP) [Relative time] 0.98 {INR} Normal 0.91-1.16 [facility] Comment on above: Result Comment: ACCC P [...] CHEST 1995;108:231S-246S. Performed By: #### 5 6101, [id number] #### [address] PT Coag (PPP) [Time] 13.0 s Normal 12.3-14.8 The [facility] Comment on above: Result Comment: ALL RESULTS MUST BE INTERPRETED WITH RESPECT TO BLOOD DRAWING ARTIFACT OR DILUTION ERROR OF ANTICOAGULANT AT THE TIME OF SAMPLING. Performed By: #### 5 6101, [id number] #### [address] KNEE RIGHT 3 [facility] 9 KNEE RIGHT 3 S [facility] Department of Radiology [address] [place] [phone] ======== Patient Name: MICHELLE BE : [...] effusion Electronically signed by:Anup Ellison. Transcribed by: [email or web address], User Resident: Electronically Signed by: ANUP ELLISON @ 06/15/2018 03:50 PM Normal [facility] Comment on above: Order Comment: , Isaiah ght Bearing?: Y , Weight Bearing?: Y , , , Ordering Provider - AMAPRO ZHANG PA-C , Vital Signs Date Time Vital Sign Value Performing Clinician Facility 05-18-2023 16:30-0500 Body height 162.6 cm Adelaida Carrion NP Work Phone: [facility] 05-18-2023 16:30-0500 Body mass index (BMI) [Ratio] 47.89 kg/m2 Adelaida Carrion NP Work Phone: [facility] 05-18-2023 16:30-0500 Body temperature 97.3 [degF] Adelaida Aichholz FOREST ENGINEER Work Phone: [facility] 05-18-2023 16:30-0500 Body weight 126.55 kg Adelaida Aichholz FOREST ENGINEER Work Phone: [facility] 05-18-2023 16:30-0500 Diastolic blood pressure 80 mm[Hg] Adelaida Aichholz FOREST ENGINEER Work Phone: [facility] 05-18-2023 16:30-0500 Heart rate 76 /min Adelaida Aichholz FOREST ENGINEER Work Phone: [facility] 05-18-2023 16:30-0500 Respiratory rate 19 /min Adelaida Aichholz FOREST ENGINEER Work Phone: [facility] 05-18-2023 16:30-0500 SaO2% (BldA) [Mass fraction] 97 % Adelaida Aichholz FOREST ENGINEER Work Phone: [facility] 05-18-2023 16:30-0500 Systolic blood pressure 134 mm[Hg] Adelaida Aichholz FOREST ENGINEER Work Phone: [facility] 03-23-2023 12:10-0500 Diastolic blood pressure 98 mm[Hg] Adelaida Aichholz Work Phone: [facility] 03-23-2023 12:10-0500 Heart rate 76 /min Adelaida Aichholz Work Phone: [facility] 03-23-2023 12:10-0500 Respiratory rate 18 /min Adelaida Aichholz Work Phone: [facility] 03-23-2023 12:10-0500 SaO2% (BldA) [Mass fraction] 99 % Adelaida Aichholz Work Phone: [facility] 03-23-2023 12:10-0500 Systolic blood pressure 162 mm[Hg] Adelaida Aichholz Work Phone: [facility] 03-23-2023 10:53-0500 Body height 162.56 cm Adelaida Merryholnena Work Phone: [facility] 03-23-2023 10:53-0500 Body weight 125.64 kg Adelaida Merryholz Work Phone: [facility] 12-19-2022 14:55-0400 Body height 162.56 cm Rosemayr Vernonmond Other [facility] [employer] Other 12-19-2022 14:55-0400 Body mass index (BMI) [Ratio] 47.85 kg/m2 Rosemary Vernonmond Other [facility] [employer] Other 12-19-2022 14:55-0400 Body temperature 97.8 [degF] Rosemary Vernonmond Other [facility] [employer] Other 12-19-2022 14:55-0400 Body weight 126.46 kg Rosemary Kirkland Other [facility] Other 12-19-2022 14:55-0400 Respiratory rate 20 /min Rosemary Kirkland Other [facility] Other 12-19-2022 14:55-0400 SaO2% (BldA) [Mass fraction] 95 % Rosemary Vernonmond Other [facility] Other 11-20-2022 13:12-0400 Body temperature 97.7 [degF] Adelaida Sousaholz Work Phone: [facility] 11-20-2022 13:12-0400 SaO2% (BldA) [Mass fraction] 96 % Adelaida Merryholz Work Phone: [facility] 11-20-2022 07:44-0400 Diastolic blood pressure 90 mm[Hg] Adelaida Aichholz Work Phone: [facility] 11-20-2022 07:44-0400 Heart rate 103 /min Adelaida Aichholz Work Phone: [facility] 11-20-2022 07:44-0400 Systolic blood pressure 152 mm[Hg] Adelaida Aichholz Work Phone: [facility] 11-19-2022 20:00-0400 Respiratory rate 18 /min Adelaida Aichholz Work Phone: [facility] 11-18-2022 15:18-0400 Body height 162.56 cm Adelaida Aichholz Work Phone: [facility] 11-17-2022 09:00-0400 Body weight 122.92 kg Adelaida Aichholz Work Phone: [facility] Encounters Encounter Date Encounter Type Care Provider Facility Start: 01-04-2024 End: 01-04-2024 ambulatory ADELAIDA AICHHOLZ Not Available Start: 12-10-2023 ambulatory Adelaida J Aichholz Facilit y:[facility] Start: 12-09-2023 End: 12-09-2023 ambulatory SUHAS GILLMOR Not Available Start: 12-08-2023 End: 12-08-2023 ambulatory SONAM C WINDNAGEL Not Available Start: 10-21-2023 End: 10-21-2023 ambulatory ADELAIDA AICHHOLZ Not Available Start: 10-14-2023 End: 10-14-2023 ambulatory SONAM C WINDNAGEL Not Available Start: 10-05-2023 End: 10-05-2023 ambulatory ADELAIDA AICHHOLZ Not Available Start: 09-21-2023 End: 09-21-2023 ambulatory ADELAIDA AICHHOLZ Not Available Start: 08-17-2023 End: 08-17-2023 ambulatory ADELAIDA AICHHOLZ Not Available Start: 07-23-2023 End: 07-23-2023 ambulatory ADELAIDA AICHHOLZ Not Available Start: 07-07-2023 End: 07-07-2023 ambulatory ADEALIDA SHEYLA Not Available Start: 06-29-2023 End: 06-30-2023 ambulatory Syeda Mancuso MD [facility] Start: 05-22-2023 End: 05-22-2023 ambulatory ASHLEIGH HINES Not Available Start: 05-21-2023 Refill Adelaida Carrion FOREST ENGINEER Work Phone: [facility] Comment on above: Acute cystitis with hematuria (Primary Dx) Start: 05-18-2023 End: 05-18-2023 Office outpatient visit 25 minutes Adelaida Carrion FOREST ENGINEER Work Phone: [facility] Comment on above: Encounter for annual wellness [...] encounter Start: 05-18-2023 End: 05-18-2023 ambulatory ADELAIDA CARRION Not Available Start: 05-18-2023 Bamboo flowsheet Adelaida Carrion FOREST ENGINEER Work Phone: [facility] Start: 05-18-2023 Bamboo flowsheet Adelaida Carrion FOREST ENGINEER Work Phone: [facility] Start: 05-18-2023 End: 05-18-2023 Patient encounter procedure Adelaida Carrion FOREST ENGINEER Work Phone: [facility] Start: 03-25-2023 End: 03-25-2023 ambulatory ADELAIDA SHEYLA Not Available Start: 03-23-2023 End: 03-23-2023 Admission to same day surgery center Adelaida Carrion Work Phone: [facility] Work Phone: Start: 03-23-2023 End: 03-23-2023 ambulatory Adelaida Carrion Work Phone: [facility] Work Phone: Start: 03-11-2023 End: 03-11-2023 ambulatory KALLI INTERIANO Keiry HARRY Not Available Start: 02-20-2023 End: 02-20-2023 ambulatory ASHLEIGH HINES Not Available Start: 02-12-2023 End: 02-12-2023 ambulatory Jace Graham Other [facility] Other Start: 02-12-2023 Telephone encounter Jace Haney Match Up Person Start: 12-19-2022 End: 12-19-2022 ambulatory Rosemary Kirkland Other [facility] Other Start: 12-19-2022 Office outpatient ne w 10 minutes Rosemary Kirkland [facility] [place] Start: 11-17-2022 End: 11-20-2022 Evaluation and management of inpatient Adelaida Sheyla Work Phone: [facility] Work Phone: Start: 09-04-2022 ambulatory ARIAN JOHNSON . Facili ty:H1 Start: 08-26-2022 ambulatory NARENDRANATH LAKSHMIPATHY . Facility:[facility]1 Start: 08-08-2022 End: 08-09-2022 ambulatory PRICE ACCURACY SUPERVISOR ADELAIDA MERRYHOLZ Facility:[facility]1 Start: 07-25-2022 End: 07-26-2022 ambulatory PRICE ACCURACY SUPERVISOR ADELAIDA AICMarquesHOLZ Facility:[facility]1 Start: 07-15-2022 End: 07-15-2022 ambulatory NARENDRANATH LAKSHMIPATHY . Facility:[facility]1 Start: 07-11-2022 ambulatory NARENDRANATH LAKSHMIPATHY . Facility:[facility]1 Start: 06-26-2022 End: 06-27-[address] FINA ZIMMER . Facility:[facility]1 Start: 06-11-2022 ambulatory PRICE ACCURACY SUPERVISOR ADELAIDA AICMarquesHOLZ Facil ity:H1 Start: 05-21-2022 End: 06-11-2022 ambulatory LIVIER CARRION Facility:[facility]1 Start: 05-08-2022 End: 05-09-2022 ambulatory LIVIER CARRION Facility:[facility]1 Start: 04-28-2022 End: 04-28-2022 ambulatory LIVIER CARRION Facility:[facility]1 Start: 04-03-2022 End: 04-04-[address] FINA ZIMMER . Facility:[facility]1 Start: 03-19-2022 End: 03-20-2022 ambulatory LIVIER CARRION Facility:[facility]1 Start: 02-20-2022 End: 02-20-2022 ambulatory GILMER PURA Facility:[facility]1 Start: 01-10-2022 End: 02-12-2022 ambulatory BRIDGETTE Ca [facility] Facility:H1 Start: 01-02-2022 End: 01-03-[address] FINA ZIMMER . Facility:H1 Start: 01-01-2022 End: 01-02-2022 ambulatory [facility] Lanny [facility] Facility:H1 Start: 12-16-2021 End: 12-16-2021 ambulatory LIVIER [...] End: 07-03-2018 Patient encounter procedure SUKI ESCALANTE Facility:[facility] Procedures Date Procedure Procedure Detail Performing Clinician Start: 03-23-2023 Screening colonoscopy L oneal Sousabob Work Phone: Start: 03-23-2023 Colonoscopy Adelaida Jayden ramos FOREST ENGINEER Work Phone: Start: 09-15-2022 Mammography Adelaida Jayden ramos FOREST ENGINEER Work Phone: Start: 08-28-2022 Microscopic observat ion [Identifier] in Cervix by Cyto stain Adelaida Carrion NP Work Phone: Start: 07-02-2018 ANESTH KNEE AREA SURGERY CHAPARRITA HENDRICKS Start: 07-02-2018 REMOVAL OF SUPPORT IMPLANT SUKI CHRISTIAN Start: 07-02-2018 TREAT KNEECAP FRACTURE SUKI EBRAHEIM Plan of Treatment Date Care Activity Detail Author Start: 03-23-2033 Screening for malignant neoplasm of colon [facility] Start: 08-28-2025 Screening for malignant neoplasm of cervix [facility] Start: 05-18-2024 Medicare Annual Wellness (AWV) Medicare Annual Wellness (AWV) [facility] Start: 09-16-2023 Screening for malignant neoplasm of breast Mammogram [facility] Start: 08-17-2023 End: 08-17-2023 Patient encounter procedure 08/17/2023 9:20 AM EDT Office Visit [facility] [address] [place] [id number] Adelaida Carrion NP [address] [place] [id number] [facility] Start: 05-22-2023 End: 05-22-2023 Patient encounter procedure 05/22/2023 8:45 AM EST Office Visit [facility] [address] [facility] [address] [place] [address] Ashleigh Hines PA [address] [facility] [address] [place] [address] [facility] Start: 05-18-2023 End: 05-18-2023 Patient encounter procedure 05/18/2023 4:30 PM EST Office Visit [facility] [address] [place] [address] Adelaida Carrion, BRIANA [address] [place] [phone] Arrived [facility] Comment on above: Arrived Start: 05-18-2023 End: 05-18-2024 XR Hip - left 3 Views XR hip left 2 or 3 views Imaging Routine Left hip pain Expected: 05/18/2023 (Approximate), Expires: 05/18/2024 [facility] Work Phone: Comment on above: Expected: 05/18/2023 (Approximate), Expires: 05/18/2024 Start: 03-23-2023 [facility] Start: 11-20-2022 [facility] Start: 11-18-2022 Referral to clinical senior lead project manager [facility] Start: 11-17-2022 Hospital admission [facility] Start: 11-17-2022 [facility] Start: 12-06-1991 Screening for malignant neoplasm of cervix HPV/Cotest [facility] Start: 1960 Medicare Annual Wellness (AWV) Medicare Annual Wellness (AWV) [facility] Start: 1960 Screening for malignant neoplasm of colon [facility] Patient Education [facility] Work Phone: Patient referral [facility] Work Phone: [facility] Immunizations Immunization Date Immunization Notes Care Provider Parker stevens 02-13-2023 influenza, injectabl e, quadrivalent, preservative free Adelaida Carrion FOREST ENGINEER Work Phone: [facility] 02-13-2023 SARS-COV-2 (COVID-19 ) vaccine, mRNA, spike protein, LNP, PF, 50 mcg/0.5 mL Adelaida Sheyla FOREST ENGINEER Work Phone: [facility] 02-19-2022 diphtheria, tetanus toxoids and pertussis vaccine Adelaida Sheyla FOREST ENGINEER Work Phone: [facility] 03-02-2021 Moderna SARS-CoV-2 Vaccination Adelaida Sheyla FOREST ENGINEER Work Phone: [facility] 08-24-2020 Moderna SARS-CoV-2 Vaccination Adelaida Sheyla FOREST ENGINEER Work Phone: [facility] 07-27-2020 Moderna SARS-CoV-2 Vaccination Adelaida Sheyla WARREN Work Phone: [facility] 05-28-2018 influenza, injectabl e, quadrivalent, preservative free Adelaida Sousabob Work Phone: [facility] Payers Date Payer Category Payer Private Health Insurance [id number] 2022 Self-pay [id number] 2022 Medicare [id number] 2008 Unknown [id number] 1961 Unknown [id number] 2.16.8 40.1.009708.3.579.2.647 1961 Unknown [id number] 2.16.84 0.1.347408.3.579.2.593 1961 Unknown [id number] 2.16.84 0.1.707644.3.579.2.593 1961 Unknown [id number] 2.16.84 0.1.347562.3.579.2.593 1961 Unknown [id number] 2.16.84 0.1.534589.3.579.2.593 1961 Unknown [id number] 2.16.84 0.1.511924.3.579.2.593 1961 Unknown [id number] 2.16.84 0.1.024208.3.579.2.593 1961 Unknown [id number] 2.16.84 0.1.618541.3.579.2.593 1961 Unknown [id number] 2.16.84 0.1.221694.3.579.2.593 1961 Unknown [id number] 2.16.84 0.1.600610.3.579.2.593 1961 Unknown [id number] 2.16.84 0.1.349778.3.579.2.593 1961 Unknown [id number] 2.16.84 0.1.133062.3.579.2.593 1961 Unknown [id number] 2.16.84 0.1.066055.3.579.2.593 1961 Unknown [id number] 2.16.84 0.1.027228.3.579.2.593 1961 Unknown [id number] 2.16.84 0.1.091497.3.579.2.593 1961 Unknown [id number] 2.16.84 0.1.069687.3.579.2.593 1961 Unknown [id number] 2.16.84 0.1.014587.3.579.2.593 1961 Unknown [id number] 2.16.84 0.1.367088.3.579.2.593 1961 Unknown [id number] 2.16.84 0.1.840432.3.579.2.593 1961 Unknown [id number] 2.16.84 0.1.365203.3.579.2.593 1961 Unknown [id number] 2.16.84 0.1.188683.3.579.2.593 1961 Unknown [id number] 2.16.84 0.1.455073.3.579.2.593 1961 Unknown [id number] 2.16.84 0.1.306174.3.579.2.593 1961 Unknown [id number] 2.16.84 0.1.176845.3.579.2.593 1961 Unknown [id number] 2.16.84 0.1.336676.3.579.2.593 1961 Unknown [id number] 2.16. 840.1.171117.3.579.2.196 1961 Unknown [id number] 2.16.84 0.1.376451.3.579.2.9 1961 Unknown [id number] 2.16.84 0.1.622109.3.579.2.1258 1961 Unknown [id number] 2.16.84 0.1.104670.3.579.2.1258 1961 Unknown [id number] 2.16.84 0.1.761629.3.579.2.1258 1961 Unknown [id number] 2.16.84 0.1.982765.3.579.2.1258 1961 Unknown [id number] 2.16.84 0.1.328420.3.579.2.1258 1961 Unknown [id number] 2.16.84 0.1.428172.3.579.2.1258 1961 Unknown [id number] 2.16.84 0.1.209394.3.579.2.1258 1961 Unknown [id number] 2.16.84 0.1.564926.3.579.2.1258 1961 Unknown [id number] 2.16.84 0.1.138508.3.579.2.1258 1961 Unknown [id number] 2.16.84 0.1.881292.3.579.2.1258 1961 Unknown [id number] 2.16.84 0.1.600220.3.579.2.1258 1961 Unknown [id number] 2.16.840 .1.328251.3.579.2.1258 1961 Unknown [id number] 2.16.840 .1.920572.3.579.2.1258 1961 Unknown [id number] 2.16.840 .1.732541.3.579.2.1259 1959 Medicare [id number] 1959 Unknown [id number] Medicare Medicare [id number] Unknown [id number] 2.16.8 40.1.650621.3.579.2.531 Unknown [id number] 2.16.8 40.1.915218.3.579.2.531 Social History Date Type Detail Facility Start: 11-18-2022 End: 02-09-2023 Tobacco smoking status NHIS Ex-smoker (finding) [facility] Start: 1960 Sex Assigned At Female [facility] Start: 03-25-2023 End: 05-18-2023 Sex Assigned At [facility] End: 04-06-2016 History of tobacco use Current smoker [facility] End: 04-06-2016 History of tobacco use Cigarette Smoker [facility] Start: 02-09-2023 End: 05-18-2023 [...] Facility 11-20-2022 Functional status Patient at [facility] Work Phone: Mental Status Date Assessment Result Facility 11-20-2022 Cognitive function Cognitive Sta tus Patient is Progressing Toward Baseline [facility] Work Phone: Clinical Notes 10-03-2021 to [...] goal no changes in meds Associated Problem(s): OSAMNY (obstructive sleep apnea) Compliant with PAP Associated [...] (BARIATRIC MULTIVITAMINS/IRON PO) Bariatric Multivitamins/Iron nystatin (Mycostatin) 080218 UNIT/GM powder 1 application , Topical, 2 [...] Anxiety 05/18/2023 Bipolar disorder with severe depression ([facility]) 05/18/2023 Brain vascular malformation Chronic pain disorder Colon polyps Constipation Degenerative cervical disc Degenerative lumbar disc Depression ([facility]) 05/18/2023 Diastolic dysfunction Dizziness 05/18/2023 Dysphagia Fibromyalgia Gastrocnemius equinus GERD (gastroesophageal reflux disease) Heart murmur Hematoma of right breast Hemiparesis, right ([facility]) Hemorrhoid int/external hemorrhoids Hiatal hernia Iron deficiency Left foot pain 03/25/2023 Lower extremity edema Mood disorder ([facility]) mixed mood disorder OSMANY (obstructive sleep apnea) Osteoporosis ([facility]) Overactive bladder Pre-diabetes Primary hypertension ([facility]) 03/25/2023 PTSD (post-traumatic stress disorder) ([facility]) Restless leg Right knee pain Right sided weakness S/P bariatric surgery Shingles Slurred speech Stroke ([facility]) 2018 Tenosynovitis, de Quervain Thoracic [...] yearly and prn documented in this encounter [facility] 03-23-2023 Procedure note [facility] 12-19-2022 Evaluation note Encounter Date Diagnosis Assessment Notes Dec, Skin candidiasis (ICD-10 - B37.2) Drink plenty fluids, get plenty of rest. Continue home medications as prescribed. Take the Diflucan as prescribed until gone. Follow-up with your family physician if no improvement in 2 to 3 days [facility] Other 08-17-2023 Discharge summary Author Eduardo bautista [facility] November 20, 2022 6:38am Note Date/Time November 20, 2022 6: 38am [facility] [address] [place] [address] Discharge Summary Signed Patient: Michelle Be MR#: [id number] : 1960 Acct:[id number] Age/Sex: 61 / F Adm Date: 3 Loc: Room: [address] [place] [address]: Gaudencio Monk MD Copies to: [...] at that time.? She reports moving to [place] from [place] in 2011 and was then diagnosed with bipolar disorder at [facility] in [place], where she still follows with a therapist.? Shereports that she has been with 7 therapists in the last 9 years and is currentlycompleting EMDR with her current therapist. Past hospitalizations: Her most recent hospitalization was [address] [facility] for the same feeling she is experiencing [...] worked since 2010 due to her fibromyalgia.? [facility]. 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 (insert date/time [...] signed by Eduardo Monk MD> 11/20/22 0638 [facility] Work Phone: 1(924) 816-732108-16-2023 Progress note Author Eduardo bautista [facility] November 19, 2022 6:25am Note Date/Time November 19, 2022 6: 25am [facility] [address] [place] [address] Psychiatry Progress Note Signed Patient: Michelle Be MR#: [id number] : 1960 Acct:[id number] Age/Sex: 61 / F Adm Date: 3 Loc: Room: [address] [place] [address] Type : ADM IN Attending Dr: Gaudencio [...] signed by Eduardo Monk MD> 11/19/22 0625 [facility] Work Phone: 1(398) 522-748008-15-2023 Progress note Author Eduardo bautista [facility] November 18, 2022 11:01am Note Date/Time November 18, 2022 10 :11am [facility] [address] [place] [address] Psychiatry Progress Note Signed Patient: Michelle Be MR#: [id number] : 1960 Acct:[id number] Age/Sex: 61 / F Adm Date: 3 Loc: Room: [address] [place] [address] Type : ADM IN Attending Dr: Gaudencio [...] by requesting a schedule 2 referring to [place] for pain management specifically every 4-6 hours [...] time Documented By: Eduardo Monk MD [id number] Signed By: <Electronically signed by Eduardo Monk MD> 11/18/22 1101 <Electronically signed by MD DA Rangel> 11/18/22 1011 [facility] Work Phone: 1(490) 802-362808-14-2023 History and physical note Author Eduardo bautista [facility] November 17, 2022 12:48pm Note Date/Time November 17, 2022 12 :48pm [facility] [address] [place] [address] Psychiatry H&P Signed Patient: Michelle Be MR#: [id number] : 1960 Acct:[id number] Age/Sex: 61 / F Adm Date: 3 Loc: Room: [address] [place] [address] Type: ADM IN Attending Dr: Gaudencio Monk [...] at that time. She reports moving to [place] from [place] in 2011 and was then diagnosed with bipolar disorder at [facility] in [place], where she still follows with a therapist. Shereports that she has been with 7 therapists in the last 9 years and is currentlycompleting EMDR with her current therapist. Past hospitalizations: Her most recent hospitalization was 5 years ago [facility] in [place] for the same feeling she is experiencing [...] worked since 2010 due to her fibromyalgia. [facility]. Relationships: Reports having people [...] CN XII: Tongue protrusion midline [facility] Medical History (Updated 11/17/22 @ 10:42 [...] signed by Eduardo Monk MD> 11/17/22 1248 [facility] Work Phone: 1(934) 647-603103-23-2023 NoteCONSULTATION CONSULTATION DATE: 06/26/2022 To: Nurse Carrion [...] L5-S1 facet joint injection under fluoroscopic guidance.[facility] [id number] NotePROCEDURE: XR SHOULDER RT 2V or > [...] Electronically authenticated by: KINGSLEY CLEMENTS Date: 2022-05-09 09:21[facility]01-23-2023 NotePROCEDURE: XR WRIST LT MIN 3 V [...] authenticated by: KINGSLEY CLEMENTS Date: 2022-04-28 13:31[facility] [id number] NoteCONSULTATION CONSULTATION DATE: 04/03/2022 HISTORY OF PRESENT [...] her in three months, unless otherwise indicated.[facility] [id number] NoteCONSULTATION CONSULTATION DATE: 01/02/2022 This is a [...] Dr. Macedo to [facility] in [place] for the compounded cream. She needs a [...] in three months' time unless otherwise indicated.[facility] [id number] NotePROCEDURE: XR ANKLE RT MIN 3 VIEWS, [...] Electronically authenticated by: KINGSLEY CLEMENTS Date: 2022-01-01 13:11[facility]09-28-2022 NotePROCEDURE: XR ANKLE RT MIN 3 VIEWS, [...] Electronically authenticated by: KINGSLEY CLEMENTS Date: 2022-01-01 13:11[facility]08-18-2022 NotePROCEDURE: XR FOOT RT MIN 3 VIEWS HISTORY: Pain in right foot , chronic COMPARISON: XR foot right 2020 FINDINGS: BONES:No fracture, dislocation, bone lesion. Small calcaneal degenerative enthesophytes. SOFT TISSUES:No visible soft tissue swelling. EFFUSION:None visible. OTHER: Negative. IMPRESSION: 1. No acute bone abnormality or significant degenerative joint disease. Electronically authenticated by: KINGSLEY CLEMENTS Date: 2021-11-21 16:13[facility]06-30-2022 NoteCONSULTATION CONSULTATION DATE: 10/03/2021 This is a [...] patient agrees with the plan of care. [facility] Signed and Approved by: ZELDA MCDANIEL . 10/10/2021 10:22:00[facility]* Diagnosis Onset Date Resolution Status Allergies acute Bipolar 2 disorder acute Hypertension acute Morbid obesity with BMI of 45.0-49.9, adult acute OSMANY (obstructive sleep apnea) acute Restless legs syndrome acute [facility] Work Phone: Evaluation noteNo InformationNort Yuuguu Other Evaluation noteNo assessment information available [facility] Work Phone: Evaluation note* Diagnosis Encounter [...] (CMS/HCC) Unspecified episodic mood disorder Primary hypertension ([facility]) Unspecified essential hypertension Left hip pain Pain in joint, pelvic region and thigh Open wound of anterior abdominal wall, initial encounter documented [facility] encounter [facility] Diagnosis Acute cystitis with hematuria- Primary documented in this encounter [facility] Healthcare[facility] and physical note Author Jace Graham [facility] March 23, 2023 11:21am Note Date/Time March 23, 2023 11:21am [facility] [address] [place] [address] Gastroenterology H&P Signed Patient: Michelle Be MR#: [id number] : 1960 Acct:[id number] Age/Sex: 62 / F Adm Date: 3 Loc: Room: Type: [facility] Attending Dr: Jace Graham MD Copies to: MD Adelaida Plummer, BRIANA-Keiry~ Date of Service: 03/23/2023 HISTORY & PHYSICAL: [...] signed by Jace Graham MD> 03/23/23 1121 [facility] Work Phone: History general Narrative - [...] see above surg Hospitalization History stroke 2018 [facility]ike Other Hospital Discharge instructions Additional Instructions Regular Diet [facility] Work [facility]: Hospital Discharge instructions Additional [...] years. -Follow up with PCP. -Office number [phone].[facility] Work Phone: Summary Purpose Family History [...] and content) DATE CREATED AUTHOR 02/18/[address] [facility] DATE CREATED AUTHOR AUTHOR'S ORGANIZ ATION 11/15/2021 [facility] DATE CREATED AUTHOR AUTHOR'S ORGANIZ ATION 08/16/2022 [facility] DATE CREATED AUTHOR AUTHOR'S ORGANIZ ATION 08/11/2023 [facility] DATE CREATED AUTHOR AUTHOR'S ORGANIZ ATION 12/23/2023 [facility] DATE CREATED AUTHOR AUTHOR'S ORGANIZ ATION 01/04/2024 [facility] dical Specialists EPIC Care Teams [...] APRN Other Provider Active Jessica Murillo , DO [...] MD Other Provider Active Joellen Le , FOREST ENGINEER-C Other Provider Active Severo Yancey MD Other Provider Active Rao Webber MD Other Provider Active Yuan Shi MD Other Provider Active Delroy Ramirez MD Other Provider Active Berta Comer , Other Provider Active Negrito Ruiz , DO Other Provider Active Lacho Singh , DO Other Provider Active Rachana Hobson , LAND SALES AGENT Other Provider Active Rob [place] , DO Other Provider Active Jeff Alvarez MD Other Provider Active Urmila Rinaldi , LAND SALES AGENT Other Provider Active Bina Mayberry , LAND SALES AGENT Other Provider Active Mir Bradford MD Other Provider Active Te Da Silva MD Other Provider Active Debra Landaverde RN Other Provider Active Team Status: Inactive Member Role Status Dates Adelaida Carrion Primary Care Provider Active Jace Graham MD Attending Provider Active Counter Clerk Relationship Specialty Start Date End Date José Luis Roberts MD [address] [place] [phone] PCP - General Family Medicine 05/18/23 Adelaida Carrion NP [address] [place] [phone] Referring Physician Nurse Practitioner 10/14/22 Counter Clerk Relationship Specialty Start Date End Date José Luis Roberts MD [address] [place] [phone] PCP - General Family Medicine 05/18/23 Adelaida Carrion NP [address] [place] [phone] Referring Physician Nurse Practitioner 10/14/22 Counter Clerk Relationship Specialty Start Date End Date José Luis Roberts MD [address] [place] [phone] PCP - General Family Medicine 05/18/23 Adelaida Carrion NP [address] [place] [address] Referring Physician Nurse Practitioner 10/14/22 REASON FOR [...] BE BASED ON THE PRIMARY CLINICAL RECORDS. [employer] provides no warranty or guarantee of the accuracy or completeness of information in this document.
[2024-01-05 07:07] VITALS: BP 110/72; PULSE 72; TEMP 36.7; O2SAT 97
[2024-01-05 07:59] VITALS: BP 141/77; PULSE 65; O2SAT 90
[2024-01-05 08:00] VITALS: BP 137/78; PULSE 64; O2SAT 90
[2024-01-05] MEDS: BUPIVACAINE HCL 0.25% PF 25 MG/10 ML VIAL INJ (08:03)
--- NOTE | 2024-01-05 08:35 | P.ON_ITS ---
Date of procedure: 01/05/24 Pre-op diagnosis: Thoracic spondylosis Post-op diagnosis: same as pre-op Procedure: Bilateral Thoracic 01/14, 02/15 medial branch block Preop diagnosis includes pain secondary to spondylosis, Postop diagnosis same Under fluoroscopic guidance Solution injected: 2milliliters Marcaine 0.25% Anesthesia :none Immediate complications none Time out process compliant After informed consent obtained from the patient placed in the [employer] proposition . area was prepped and draped in a sterile fashion using betadine .25 gauge spinal needle inserted over each of the above mentioned target areas . [place] were directed towards the target under fluoroscopic guidance . after encountering each of the targets , no indication of intravascular intraneuronal or intrathecal needle tip placement. Then 0 .5 to 1 Milliliter was injected at each level. [place] removed postoperatively. patient transferred to recovery in stable condition to be discharged home after meeting criteria Anesthesia: Local Condition: stable
== END 2024-01-05 08:08 | disposition home or self-care (01) ==
LOC: SURGOUT 06:31
PROVIDERS: PCP Nurse Practitioner; Visit Provider Anesthesiology Pain Medicine
DX: R60.0 Localized edema (principal); M47.814 Spondylosis without myelopathy or radiculopathy, thoracic region
CPT/HCPCS: 36415; 64490; 64491; 80048; J0665

== ENCOUNTER 2024-01-05 08:11 | Outpatient (OUT) | payer MEDICARE, SELFPAY ==
--- OUTSIDE RECORDS SUMMARY | 2024-01-05 08:30 | XMS_ITS | CCD ---
Author Organization [facility] Care Team Providers Care Vocational Services Specialist Name Role Phone EBRAHEIM, SUKI Admitting Unavailable EBRAHEIM, SUKI Attending Unavailable AICHHOLZ, ADELAIDA Referring Unavailable AICHHOLZ, ADELAIDA Primary Care Unavailable MD Procedure Practitioner Unavailab SUKI Jacob Surgeon Unavailable MD Procedure Practitioner Unavailab CHAPARRITA Goncalves Surgeon Unavailable BRIDGETTE MACEDO Admitting Unavailable BRIDGETTE MACEDO Attending Unavailable AICHHOLZ, ATTORNEY GENERAL ADELAIDA Primary Care Unavailable ZIMMER ., DR FINA Iverson Admitting Unavailable ZIMMER ., DR FINA Iverson Attending Unavailable AICHHOLZ, ATTORNEY GENERAL ADELAIDA Primary Care Unavailable MCDANIEL ., ZELDA Consulting Unavailable LAKSHMIPATHY ., NARENDRANATH Consulting Paula vailable LAKSHMIPATHY ., NARENDRANATH Admitting Paula vailable LAKSHMIPATHY ., NARENDRANATH Attending Paula vailable AICHHOLZ, ATTORNEY GENERAL ADELAIDA Primary Care Unavailable LAKSHMIPATHY ., NARENDRANATH Consulting Paula vailable AICHHOLZ, ATTORNEY GENERAL ADELAIDA Primary Care Unavailable MARKER ., DR CHAUDHRY Admitting Unavailable MARKER ., DR CHAUDHRY Attending Unavailable MARKER ., DR CHAUDHRY Consulting Unavailable AICHHOLZ, ATTORNEY GENERAL ADELAIDA Admitting Unavailable AICHHOLZ, ATTORNEY GENERAL ADELAIDA Attending Unavailable AICHHOLZ, ATTORNEY GENERAL ADELAIDA Primary Care Unavailable ZIMMER ., DR FINA Iverson Admitting Unavailable ZIMMER ., DR FINA Iverson Attending Unavailable AICHHOLZ, ATTORNEY GENERAL ADELAIDA Primary Care Unavailable MCDANIEL ., ZELDA Consulting Unavailable ZIMMER ., DR FINA Iverson Admitting Unavailable ZIMMER ., DR FINA Iverson Attending Unavailable AICHHOLZ, ATTORNEY GENERAL ADELAIDA Primary Care Unavailable MCDANIEL ., ZELDA Consulting Unavailable AICHHOLZ, ATTORNEY GENERAL ADELAIDA Admitting Unavailable AICHHOLZ, ATTORNEY GENERAL ADELAIDA Attending Unavailable AICHHOLZ, ATTORNEY GENERAL ADELAIDA Primary Care Unavailable AICHHOLZ, ATTORNEY GENERAL ADELAIDA Consulting Unavailable AICHHOLZ, ATTORNEY GENERAL ADELAIDA Admitting Unavailable AICHHOLZ, ATTORNEY GENERAL ADELAIDA Attending Unavailable AICHHOLZ, ATTORNEY GENERAL ADELAIDA Primary Care Unavailable AICHHOLZ, ATTORNEY GENERAL ADELAIDA Consulting Unavailable MISC, DR COTE Admitting Unavailable MISC, DR COTE Attending Unavailable AICHHOLZ, ATTORNEY GENERAL ADELAIDA Primary Care Unavailable AICHHOLZ, ATTORNEY GENERAL ADELAIDA Consulting Unavailable PRITESHC, DR COTE Consulting Unavailable STARR, DR KINGSLEY Atkins Consulting Unavailable ZIMMER ., DR FINA Iverson Admitting Unavailable ZIMMER ., DR FINA Iverson Attending Unavailable AICHOLZ, ATTORNEY GENERAL ADELAIDA Primary Care Unavailable MCDANIEL ., ZELDA Consulting Unavailable ZIMMER ., DR FINA Iverson Admitting Unavailable ZIMMER ., DR FINA Iverson Attending Unavailable AICHOLZ, ATTORNEY GENERAL ADELAIDA Primary Care Unavailable ZIMMER ., DR FINA Iverson Consulting Unavailable OMID LAY Consulting Unavailable ZIMMER ., DR FINA Iverson Admitting Unavailable ZIMMER ., DR FINA Iverson Attending Unavailable AICHOLZ, ATTORNEY GENERAL ADELAIDA Primary Care Unavailable MCDANIEL ., ZELDA Consulting Unavailable AICHOLZ, ATTORNEY GENERAL ADELAIDA Primary Care Unavailable HALKER ., ARIAN Admitting Unavailable HALKER ., ARIAN Attending Unavailable LAKSHMIPATHY ., NARENDRANATH Consulting Paula vailable HALKER ., ARIAN Consulting Unavailable LAKSHMIPATHY ., NARENDRANATH Admitting Paula vailable LAKSHMIPATHY ., NARENDRANATH Attending Paula vailable AICHOLZ, ATTORNEY GENERAL ADELAIDA Primary Care Unavailable LAKSHMIPATHY ., NARENDRANATH Consulting Paula vailable AICHHOLZ, ATTORNEY GENERAL ADELAIDA Admitting Unavailable AICHHOLZ, ATTORNEY GENERAL ADELAIDA Attending Unavailable AICHHOLZ, ATTORNEY GENERAL ADELAIDA Primary Care Unavailable AICHHOLZ, ATTORNEY GENERAL ADELAIDA Consulting Unavailable BRIDGETTE MACEDO Admitting Unavailable BRIDGETTE MACEDO Attending Unavailable AICHHOLZ, ATTORNEY GENERAL ADELAIDA Primary Care Unavailable DR KINGSLEY CLEMENTS Consulting Unavailable BRIDGETTE MACEDO Consulting Unavailable PURA, GILMER Admitting Unavailable GILMER NEVES Attending Unavailable PURA, GILMER Consulting Unavailable AICHHOLZ, ATTORNEY GENERAL ADELAIDA Primary Care Unavailable AICHHOLZ, ATTORNEY GENERAL ADELAIDA Primary Care Unavailable DR WILLI RINALDI Admitting Unavailable DEEJAY, DR WILLI Atkins Attending Unavailable DR WILLI RINALDI Consulting Unavailable AICHHOLZ, ATTORNEY GENERAL ADELAIDA Primary Care Unavailable ALMAZ ., DANNY Admitting Unavailable ALMAZ ., DANNY Attending Unavailable DR KINGSLEY CLEMENTS Consulting Unavailable ALMAZ ., DANNY Consulting Unavailable LAKSHMIPATHY ., NARENDRANATH Admitting Paula vailable LAKSHMIPATHY ., NARENDRANATH Attending Paula vailable AICHHOLZ, ATTORNEY GENERAL ADELAIDA Primary Care Unavailable AICHHOLZ, ATTORNEY GENERAL ADELAIDA Admitting Unavailable AICHHOLZ, ATTORNEY GENERAL ADELAIDA Attending Unavailable AICHHOLZ, ATTORNEY GENERAL ADELAIDA Primary Care Unavailable AICHHOLZ, ATTORNEY GENERAL ADELAIDA Admitting Unavailable AICHHOLZ, ATTORNEY GENERAL ADELAIDA Attending Unavailable AICHHOLZ, ATTORNEY GENERAL ADELAIDA Primary Care Unavailable AICHHOLZ, ATTORNEY GENERAL ADELAIDA Consulting Unavailable DR KINGSLEY CLEMENTS Consulting Unavailable HALKER ., ARIAN Admitting Unavailable HALKER ., ARIAN Attending Unavailable AICHHOLZ, ATTORNEY GENERAL ADELAIDA Primary Care Unavailable Aichholz, Adelaida J Primary Care Provider [phone] MD Gaudencio Monk Admit Provider MD Gaudencio Monk Attending Provider JOHANN Vieira Other Provider Unavailable JOHANN Pina Other Provider Unavailable JOHANN Hurtado Other Provider Unavailable JOHANN Crooks Other Provider Unavailable JOHANN Mejias Other Provider Unavailable JOHANN Kim Other Provider Unavailable MD Walker Pringle Other Provider ROSS Marsh Other Provider DO Jessica Murillo Other Provider MD Obdulio Bragg Other Provider [phone] DO Joon Cristina Other Provider MD Torin Robert Other Provider MD Dawn Barrera Other Provider [phone] Karlene, ANP- Mari Other Provider [phone] MD Sofi Almanzar Other Provider [phone] MD Sharad Gallegos Other Provider MD [...] adverse reactions (disorder) 04-06-19 14 rash [facility] Repository (3 sources) levETIRAcetam; Translations: [KEPPRA] Drug Allergy 07-02-19 19 [facility] Repository (3 sources) milnacipran; Translations: [SAVELLA] Drug Allergy 03-14-20 13 [facility] Repository (1 source) Penicillin; Translations: [PENICILLIN] Drug Allergy 01-16-20 18 [facility] Repository (5 sources) Prochlorperazin e; Translations: [COMPAZINE] Drug Allergy 03-14-20 13 agitation [facility] Repository (12 sources) Tetracycline; Translations: [TETRACYCLINE] Drug Allergy 04-06-19 13 Hives, Unknown [facility] Repository (4 sources) Penicillins Drug allergy (disorder) 04-06-19 13 Unknown Reaction [facility] Repository (9 sources) levETIRAcetam; Translations: [levetiracetam] Drug Allergy 12-13-19 22 Hallucinations , Other [facility] (9 sources) milnacipran; Translations: [milnacipran] Drug Allergy 12-13-19 hives, Hallucinations , Other, Unknown [facility] (7 sources) Prochlorperazin e; Translations: [prochlorperazi ne] Drug Allergy 12-13-19 Unknown, Other [facility] (2 sources) Penicillin G Drug Allergy as a child [employer] [facility] [employer] Other (2 sources) Tetracaine Drug Allergy Unknown [employer] Other (4 sources) Penicillins Drug Intolerance 12-13-19 Anaphylaxis [facility] (4 sources) Other Propensity to adverse reactions 12-13-19 Other [facility] (4 sources) Wound Dressing Adhesive Drug Allergy 09-20-19 Rash, Unknown [facility] (1 source) Penicillin Drug Allergy 12-20-19 [facility]ository (1 source) Penicillins Drug allergy (disorder) 03-23-20 [facility] Repository (1 source) Tetracaine Drug Allergy 12-20-19 [facility] Repository Medications Current Medications Medication Drug Class(es) [...] 23, 2023 12:00am take 2 tablets by [facility] once daily at bedtime Melatonin 10 MG 2 TABLETS Orally QHS Active Melatonin 12 MG tablet dispersible (4 sources) Melatonin 12 MG tablet dispersible 1 (one) time each day at the same time. 0 Active Multiple Vitamins-Minerals (BARIATRIC MULTIVITAMINS/IRON PO) (4 sources) Multiple Vitamins-Minerals (BARIATRIC MULTIVITAMINS/IRON PO) Bariatric Multivitamins/Iron 0 Active Qzukbwfkicam-Zfj-Intp-Fa- Vit K (Bariatric Multivitamins) 45 mg iron- 800 mcg-120 mcg Capsule (2 sources) Start: 11-17-2022 take 1 capsule by mouth once daily Rnltcatdwngp-Scb-Pcya-Fa -Vit K (Bariatric Multivitamins) 45 mg iron- 800 mcg-120 mcg Capsule Active 1 CAP PO Daily November 16, 2022 11:00pm Start: 11-17-2022 take 1 capsule by mo uth once daily Ooghcgwkpmmw-Iud-Qejy-Fa-Vit K (Bariatri c Multivitamins) 45 mg iron- 800 mcg-120 mcg Capsule Active 1 CAP PO Daily November 17, 2022 12:00am nystatin 100 unt/mg topical powder (4 sources) Polyene Antifungal nystatin (Myc ostatin) 027612 UNIT/GM powder Apply 1 application topically in [...] 02-20-2022 Episodic Other aftercare (1 source) 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 rodent 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 (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) drug therapy; Translations: [OTH 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 OF 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 CURRENT DRUG THERAPY] Onset: 04-29-2022 Episodic Other [...] on 03-23-2023 Amphetamines Ql (U) Negative Negative [facility] Barbiturates [Presence] in U rine by Screen methodOrdered By: Jace Graham on 03-23-2023 Barbiturates Screen Ql (U) Negative Negative [facility] Benzodiazepines Screen Ql (U )Ordered By: Jace Graham on 03-23-2023 Benzodiazepines Ql (U) Negative Negative [facility] Benzoylecgonine [Presence] i n Urine by Screen methodOrdered By: Jace Graham on 03-23-2023 Benzoylecgonine Screen Ql (U) Negative Negative [facility] Cannabinoids [Presence] in U rine by Screen methodOrdered By: Jace Graham on 03-23-2023 Cannabinoids Screen Ql (U) Negative Negative [facility] Comment on above: These are unconfirme d results and should not be used for legal purposes. Drug Cut-Off Concentration: AMPH 1000 ng/mL ELKIN 200 ng/mL ATIYA 200 ng/mL COCM 300 ng/mL OP 300 ng/mL PCP 25 ng/mL THC 20 ng/mL Drug Screen,Urineon 03-23-20 23 Amphetamine Screen,Urine Negative Normal Negative [facility] Comment on above: Performed By: #### U RDS #### [address] Barbiturate Screen,Urine Negative Normal Negative [facility] Comment on above: Performed By: #### U RDS #### [facility] [address] [place] [address] [place] Benzodiazepines Screen,Urine Negative Normal Negative [facility] Comment on above: Performed By: #### U RDS #### [place] [address] [place] Cannabinoid Screen,Urine Negative Normal Negative [facility] Comment on above: Result Comment: Thes e are unconfirmed results and should not be used for legal purposes. Drug Cut-Off Concentration: AMPH 1000 ng/mL ELKIN 200 ng/mL ATIYA 200 ng/mL COCM 300 ng/mL OP 300 ng/mL PCP 25 ng/mL THC 20 ng/mL PERFORMED BY: [place] [address] PATHOLOGIST SHOOK SPLICER AN CURRY M.D. Performed By: #### U RDS #### [facility] [address] [place] [address] [place] Cocaine Screen,Urine Negative Normal Negative [facility] Comment on above: Performed By: #### U RDS #### [facility] [address] [place] [address] [place] Opiate Screen,Urine Negative Normal Negative [facility] Comment on above: Performed By: #### U RDS #### [facility] [address] Phencyclidine Screen,Urine Negative Normal Negative [facility] Comment on above: Performed By: #### U RDS #### [facility] [address] Opiates [Presence] in Urine by Screen methodOrdered By: Jace Graham on 03-23-2023 Opiates Screen Ql (U) Negative Negative [facility] Phencyclidine Screen Ql (U)O rdered By: Jace Graham on 03-23-2023 Phencyclidine Ql (U) Negative Negative [facility] Cholesterol [Mass/volume] in Serum or PlasmaOrdered By: Eduardo Monk on 11-18-2022 Cholesterol [Mass/Vol] 159 mg/dL 140-200 [facility] Comment on above: Chol less than 200 m g/dl low riskChol 201-239 mg/dl borderline riskChol 240 mg/dl and greater high risk Cholesterol in LDL Calc [Mas s/Vol]Ordered By: Eduardo Monk on 11-18-2022 Cholesterol in LDL [Mass/Vol] 84 mg/dL 0-100 [facility] Comment on above: LDL ATP III CLASSIFI CATIONLDL less than 100 mg/dL OptimalLDL 100-129 mg/dL Near or above optimalLDL 130-159 mg/dL Borderline highLDL 160-189 mg/dL HighLDL greater than 189 mg/dL Very high Cholesterol in VLDL Calc [Ma ss/Vol]Ordered By: Eduardo Monk on 11-18-2022 Cholesterol in VLDL [Mass/Vol] 28 mg/dL [facility] Serum or plasma high density lipoprotein (HDL) cholesterol measurementOrdered By: Eduardo Monk on 11-18-2022 Cholesterol in HDL [Mass/Vol] 46 mg/dL 23-92 [facility] Comment on above: HDL CHOL ATP-III CLA SSIFICATION Cardiovascular RiskHDL > or equal to 60 mg/dL LOWHDL < 40 mg/dL HIGH Serum or plasma total choles terol/high density lipoprotein (HDL) cholesterol mass ratOrdered By: Eduardo Monk on 11-18-2022 Cholesterol.total/Chol esterol in HDL [Mass ratio] 3.5 {ratio} <5.0 [facility] Thyrotropin [Units/volume] i n Serum or PlasmaOrdered By: Eduardo Monk on 11-18-2022 TSH Qn 2.13 m[IU]/L 0.45-5.33 [facility] Triglyceride [Mass/volume] i n Serum or PlasmaOrdered By: Eduardo Monk on 11-18-2022 Triglyceride [Mass/Vol] 144 mg/dL 0-149 [facility] Comment on above: TRIG ATP III CLASSIF ICATIONTRIG less than 150 mg/dL NormalTRIG 150-199 mg/dL Borderline highTRIG 200-500 mg/dL High TRIG greater than 500 mg/dL Very highStandard traceable to the Center for Disease Conrtrol and Prevention (CDC) test method. Vitamin D+Metabolites [Mass/ volume] in Serum or PlasmaOrdered By: Eduardo Monk on 11-18-2022 Vitamin D+Metabolites [Mass/Vol] 50.4 ng/mL 30-100 [facility] Comment on above: VITAMIN D STATUS 25( [place])VITAMIN D RANGE (ng/mL) Deficient <20 Insufficient 20 to <30Sufficient 30 to 100Reference: Bin MF,Lakshmi NC, Cristian SMART, et al. Evaluation,treatment, and prevention of vitamin D deficiency; an Endocrine Society clinical practice guideline. JCEM. 2010; 96(7):1911-30. CBC AUTO DIFFon 07-25-2022 BASO # 0.1 103/ul Normal 0.0-0.1 [facility] Comment on above: Performed By: #### A 1C #### [facility] [address] [place] [address] Dr. Bebeto Alvarado Basophils/100 WBC (Bld) 0.6 % Normal 0.2-2.0 [facility] Comment on above: Performed By: #### A 1C #### [facility] [address] [place] [address] Dr. Bebeto lAvarado EO # 0.2 103/ul Normal 0.0-0.7 [facility] Comment on above: Performed By: #### A 1C #### [facility] [address] [place] [address] Dr. Bebeto Alvarado Eosinophils/100 WBC (Bld) 2.3 % Normal 0.9-7.0 [facility] Comment on above: Performed By: #### A 1C #### [facility] [address] [place] [address] Dr. Bebeto Alvarado Erythrocyte distribution width (RBC) [Ratio] 13.8 % Normal 11.0-15.0 [facility] Comment on above: Performed By: #### A 1C #### [facility] [address] [place] [address] Dr. Bebeto Alvarado Hematocrit (Bld) [Volume fraction] 41.2 % Normal 36.0-48.0 [facility] Comment on above: Performed By: #### A 1C #### [facility] [address] [place] [address] Dr. Bebeto Alvarado Hemoglobin (Bld) [Mass/Vol] 13.2 g/dL Normal 12.0-16.0 [facility] Comment on above: Performed By: #### A 1C #### [facility] [address] [place] [address] Dr. Bebeto Alvarado IG # 0.03 10e3/ul Normal 0.00-0.03 [facility] Comment on above: Performed By: #### A 1C #### [facility] [address] [place] [address] Dr. Bebeto Alvarado IG % 0.4 % Normal 0.0-0.5 [facility] Comment on above: Performed By: #### A 1C #### [facility] [address] [place] [address] Dr. Bebeto Alvarado LYMPH # 2.1 103/ul Normal 1.2-3.8 [facility] Comment on above: Performed By: #### A 1C #### [facility] [address] [place] [address] Dr. Bebeto Alvarado Lymphocytes/100 WBC (Bld) 25.9 % Normal 20.5-60.0 [facility] Comment on above: Performed By: #### A 1C #### [facility] [address] [place] [address] Dr. Bebeto Alvarado MANUAL DIFF REQ NO Normal [facility] Comment on above: Performed By: #### A 1C #### [facility] [address] [place] [address] Dr. Bebeto Alvarado MCH (RBC) [Entitic mass] 28.0 pg Normal 26.7-34.0 [facility] Comment on above: Performed By: #### A 1C #### [facility] [address] [place] [address] Dr. Bebeto Alvarado MCHC (RBC) [Mass/Vol] 32.0 g/dL Normal 29.9-35.2 [facility] Comment on above: Performed By: #### A 1C #### [facility] [address] [place] [address] Dr. Bebeto lAvarado MCV (RBC) [Entitic vol] 87.5 fL Normal 81.0-99.0 [facility] Comment on above: Performed By: #### A 1C #### [facility] [address] [place] [address] Dr. Bebeto Alvarado MONO # 0.5 103/ul Normal 0.3-0.8 [facility] Comment on above: Performed By: #### A 1C #### [facility] [address] [place] [address] Dr. Bebeto Alvarado Monocytes/100 WBC (Bld) 6.6 % Normal 1.7-12.0 [facility] Comment on above: Performed By: #### A 1C #### [facility] [address] [place], [place] [id number] Dr. Bebeto Alvarado NEUT # 5.1 103/ul Normal 1.4-6.5 [facility] Comment on above: Performed By: #### A 1C #### [facility] [address] [place] [address] Dr. Bebeto Alvarado Neutrophils/100 WBC (Bld) 64.2 % Normal 43.0-75.0 [facility] Comment on above: Performed By: #### A 1C #### [facility] [address] [place] [address] Dr. Bebeto Alvarado Platelet mean volume (Bld) [Entitic vol] 11.2 fL Normal 9.5-13.5 [facility] Comment on above: Performed By: #### A 1C #### [facility] [address] [place] [address] Dr. Bebeto Alvarado PLT 252 103/ul Normal 150-450 [facility] Comment on above: Performed By: #### A 1C #### [facility] [address] [place] [address] Dr. Beebto Alvarado RBC 4.71 106/ul Normal 4.20-5.40 [facility] Comment on above: Performed By: #### A 1C #### [facility] [address] [place] [address] Dr. Bebeto Alvarado WBC 8.0 103/ul Normal 4.0-11.0 [facility] Comment on above: Performed By: #### A 1C #### [facility] [address] [place] [address] Dr. Bebeto Alvarado GLYCOHEMOGLOBIN A1Con 2022 ADA RECOMMENDATION SEE BELOW Normal [facility] Comment on above: Result Comment: ADA RECOMMENDED LIMIT 4.0 - 6.0 ADA THERAPEUTIC TARGET < 7.0 ACTION SUGGESTED > 7.0 Performed By: #### A 1C #### [facility] [address] [place] [address] Dr. Bebeto Alvarado Glucose [Mass/Vol] 114 mg/dL Normal [facility] Comment on above: Performed By: #### A 1C #### [facility] [address] [place] [address] Dr. Bebeto Alvarado HbA1c (Bld) [Mass fraction] 5.6 % Normal 4.5-6.2 [facility] Comment on above: Performed By: #### A 1C #### [facility] [address] [address] [address] Bebeto Alvarado IRONon 07-25-2022 Iron [Mass/Vol] 60.0 ug/dL Normal 50.0-170.0 [facility] Comment on above: Performed By: #### V ITB12, IRON #### [facility] [address] [address] [address] Bebeto Alvarado LIPID PROFILEon 07-25-2022 CHOL-HDL RATIO NORM SEE BELOW Normal [facility] Comment on above: Result Comment: 3.3 - 4.4 LOW RISK 4.4 - 7.1 AVERAGE RISK 7.1 - 11.0 MODERATE RISK >11.0 HIGH RISK Performed By: #### C MP, LIPID #### [facility] [address] [address] [address] Bebeto Alvarado Cholesterol [Mass/Vol] 144 mg/dL Normal <=200 [facility] Comment on above: Performed By: #### C MP, LIPID #### [facility] [address] [address] [address] Bebeto Alvarado Cholesterol in HDL [Mass/Vol] 39 mg/dL Critically low 40-60 [facility] Comment on above: Performed By: #### C MP, LIPID #### [facility] [address] [address] [address] Bebeto Alvarado Cholesterol in LDL [Mass/Vol] 74.6 mg/dL Normal [facility] Comment on above: Performed By: #### C MP, LIPID #### [facility] [address] [address] [address] Bebeto Alvarado Cholesterol.total/Chol esterol in HDL [Mass ratio] 3.7 {ratio} Normal [facility] Comment on above: Performed By: #### C MP, LIPID #### [facility] [address] [address] [address] Bebeto Alvarado HDL NORMAL > or = 60 mg/dl - LO W CARDIOVASCULAR RISK <40 mg/dl - HIGH CARDIOVASCULAR RISK Normal [facility] Comment on above: Performed By: #### C MP, LIPID #### [facility] [address] [address] [address] Bebeto Alvarado LDL CALC NORMAL SEE BELOW Normal [facility] Comment on above: Result Comment: <100 mg/dl OPTIMAL 100 - 129 mg/dl NEAR OR ABOVE OPTIMAL 130 - 159 mg/dl BORDERLINE HIGH 160 - 189 mg/dl HIGH >190 mg/dl VERY HIGH Performed By: #### C MP, LIPID #### [facility] [address] [address] [address] Bebeto Alvarado Triglyceride [Mass/Vol] 152 mg/dL Critically high <=150 [facility] Comment on above: Performed By: #### C MP, LIPID #### [facility] [address] [place] [address] Dr. Bebeto Alvarado VLDL CALC 30.4 mg/dL Normal [facility] Comment on above: Performed By: #### C MP, LIPID #### [facility] [address] [address] [address] Bebeto Alvarado PROF 14(COMP METB)on 023 Albumin [Mass/Vol] 3.7 g/dL Normal 3.4-5.0 [facility] Comment on above: Performed By: #### C MP, LIPID #### [facility] [address] [address] [address] Bebeto Alvarado Albumin/Globulin [Mass ratio] 0.9 {ratio} Normal [facility] Comment on above: Performed By: #### C MP, LIPID #### [facility] [address] [address] [address] Bebeto Alvarado ALP [Catalytic activity/Vol] 90 U/L Normal 46-116 [facility] Comment on above: Performed By: #### C MP, LIPID #### [facility] [address] [address] [address] Bebeto Alvarado ALT [Catalytic activity/Vol] 38 U/L Normal 14-59 [facility] Comment on above: Performed By: #### C MP, LIPID #### [facility] [address] [address] [address] Bebeto Alvarado Anion gap [Moles/Vol] 12.1 mmol/L Normal [facility] Comment on above: Performed By: #### C MP, LIPID #### [facility] [address] [address] [address] Bebeto Alvarado AST [Catalytic activity/Vol] 26 U/L Normal 15-37 [facility] Comment on above: Performed By: #### C MP, LIPID #### [facility] [address] [address] [address] Bebeto Alvarado Bilirubin [Mass/Vol] 0.3 mg/dL Normal 0.2-1.0 [facility] Comment on above: Performed By: #### C MP, LIPID #### [facility] [address] [place] [address] Dr. Bebeto Alvarado Calcium [Mass/Vol] 9.3 mg/dL Normal 8.5-10.1 [facility] Comment on above: Performed By: #### C MP, LIPID #### [facility] [address] [place] [address] Dr. Bebeto Alvarado Chloride [Moles/Vol] 107 mmol/L Normal 98-107 [facility] Comment on above: Performed By: #### C MP, LIPID #### [facility] [address] [place] [address] Dr. Bebeto Alvarado CO2 [Moles/Vol] 27.9 mmol/L Normal 21.0-32.0 [facility] Comment on above: Performed By: #### C MP, LIPID #### [facility] [address] [place] [address] Dr. Bebeto Alvarado Creatinine [Mass/Vol] 0.95 mg/dL Normal 0.55-1.02 [facility] Comment on above: Performed By: #### C MP, LIPID #### [facility] [address] [address] [address] Bebeto Alvarado EGFR-AF CITIZEN [place] >60 Normal >=60 [facility] Comment on above: Performed By: #### C MP, LIPID #### [facility] [address] [address] [address] Bebeto Alvarado EGFR-NON AF CITIZEN OF [place] 60 mL/min/1.73m2 Normal >=60 [facility] Comment on above: Performed By: #### C MP, LIPID #### [facility] [address] [address] [address] Bebeto Alvarado Globulin (S) [Mass/Vol] 3.9 g/dL Normal [facility] Comment on above: Performed By: #### C MP, LIPID #### [facility] [address] [address] [address] Bebeto Alvarado Glucose [Mass/Vol] 108 mg/dL Critically high 74-106 [facility] Comment on above: Performed By: #### C MP, LIPID #### [facility] [address] [address] [address] Bebeto Alvarado Potassium [Moles/Vol] 4.0 mmol/L Normal 3.5-5.1 [facility] Comment on above: Performed By: #### C MP, LIPID #### [facility] [address] [address] [address] Bebeto Alvarado Protein [Mass/Vol] 7.6 g/dL Normal 6.4-8.2 [facility] Comment on above: Performed By: #### C MP, LIPID #### [facility] [address] [address] [address] Bebeto Alvarado Sodium [Moles/Vol] 143 mmol/L Normal 136-145 [facility] Comment on above: Performed By: #### C MP, LIPID #### [facility] [address] [address] [address] Bebeto Alvarado Urea nitrogen [Mass/Vol] 15.0 mg/dL Normal 7.0-18.0 [facility] Comment on above: Performed By: #### C MP, LIPID #### [facility] [address] [address] [address] Bebeto Alvarado Urea nitrogen/Creatinine [Mass ratio] 15.8 mg/mg Normal [facility] Comment on above: Performed By: #### C MP, LIPID #### [facility] [address] [place] [address] Dr. Bebeto Alvarado UA RANDOM W/MICROSCOPICon BACTERIA NONE SEEN Normal NONE SEEN [facility] Comment on above: Performed By: #### A 1C #### [facility] [address] [place] [address] Dr. Bebeto Alvarado Bilirubin Ql (U) Negative Normal NEGATIVE [facility] Comment on above: Performed By: #### A 1C #### [facility] [address] [place] [address] Dr. Bebeto Alvarado CAST NONE SEEN Normal NONE SEEN [facility] Comment on above: Performed By: #### A 1C #### [facility] [address] [place] [address] Dr. Bebeto Alvarado Clarity (U) CLEAR Normal CLEAR [facility] Comment on above: Performed By: #### A 1C #### [facility] [address] [place] [address] Dr. Bebeto Alvarado Color (U) YELLOW Normal YELLOW [facility] Comment on above: Performed By: #### A 1C #### [facility] [address] [place] [address] Dr. Bebeto Alvarado Crystals LM Nom (Urine sed) NONE SEEN Normal NONE SEEN [facility] Comment on above: Performed By: #### A 1C #### [facility] [address] [place] [address] Dr. Bebeto Alvarado Epithelial cells LM Ql (Urine sed) NONE SEEN Normal NONE SEEN /RARE [facility] Comment on above: Performed By: #### A 1C #### [facility] [address] [place] [address] Dr. Bebeto Alvarado Glucose Ql (U) Negative Normal NEGATIVE [facility] Comment on above: Performed By: #### A 1C #### [facility] [address] [place] [address] Dr. Bebeto Alvarado Hemoglobin Ql (U) Negative Normal NEGATIVE [facility] Comment on above: Performed By: #### A 1C #### [facility] [address] [place] [address] Dr. Bebeto Alvarado Ketones Ql (U) Negative Normal NEGATIVE [facility] Comment on above: Performed By: #### A 1C #### [facility] [address] [place] [address] Dr. Bebeto Alvarado LEUKOCYTES Negative Normal NEGATIVE [facility] Comment on above: Performed By: #### A 1C #### [facility] [address] [place] [address] Dr. Bebeto Alvarado MUCOUS NONE SEEN Normal NONE SEEN [facility] Comment on above: Performed By: #### A 1C #### [facility] [address] [place] [address] Dr. Bebeto Alvarado Nitrite Ql (U) Negative Normal NEGATIVE [facility] Comment on above: Performed By: #### A 1C #### [facility] [address] [place] [address] Dr. Bebeto Alvarado pH (U) 5.5 [pH] Normal 5-9 [facility] Comment on above: Performed By: #### A 1C #### [facility] [address] [place] [address] Dr. Bebeto Alvarado RBC NONE SEEN Abnormal 0-2 [facility] Comment on above: Performed By: #### A 1C #### [facility] [address] [place] [address] Dr. Bebeto Alvarado SPEC GRAVITY 1.030 Abnormal 1.005-<=1.02 5 [facility] Comment on above: Performed By: #### A 1C #### [facility] [address] [place] [address] Dr. Bebeto Alvarado UA PROTEIN Negative Normal NEGATIVE/ TRACE [facility] Comment on above: Performed By: #### A 1C #### [facility] [address] [place] [address] Dr. Bebeto Alvarado Urobilinogen Qn (U) 0.2 {Katerin'U}/dL Normal 0.2 - 1. 0 [facility] Comment on above: Performed By: #### A 1C #### [facility] [address] [place] [address] Dr. Bebeto Alvarado WBC NONE SEEN Normal NONE SEEN [facility] Comment on above: Performed By: #### A 1C #### [facility] [address] [place] [address] Dr. Bebeto Alvarado VITAMIN B12on 07-25-2022 Cobalamin (Vitamin B12) [Mass/Vol] 1684.0 pg/mL Critically high 193.0-986.0 [facility] Comment on above: Performed By: #### V ITB12, IRON #### [facility] [address] [address] [address] Bebeto Alvarado PROF CHEM 8 (BAS METB)on Anion gap [Moles/Vol] 12.2 mmol/L Normal [facility] Comment on above: Performed By: #### B MP #### [facility] [address] [place] [address] Dr. Bebeto Alvarado Calcium [Mass/Vol] 8.9 mg/dL Normal 8.5-10.1 [facility] Comment on above: Performed By: #### B MP #### [facility] [address] [place] [address] Dr. Bebeto Alvarado Chloride [Moles/Vol] 105 mmol/L Normal 98-107 [facility] Comment on above: Performed By: #### B MP #### [facility] [address] [place] [address] Dr. Bebeto Alvarado CO2 [Moles/Vol] 29.6 mmol/L Normal 21.0-32.0 [facility] Comment on above: Performed By: #### B MP #### [facility] [address] [place] [address] Dr. Bebeto Alvarado Creatinine [Mass/Vol] 0.95 mg/dL Normal 0.55-1.02 [facility] Comment on above: Performed By: #### B MP #### [facility] [address] [place] [address] Dr. Bebeto Alvarado EGFR-AF CITIZEN OF [place] >60 Normal >=60 [facility] Comment on above: Performed By: #### B MP #### [facility] [address] [place] [address] Dr. Bbeeto Alvarado EGFR-NON AF CITIZEN OF [place] 60 mL/min/1.73m2 Normal >=60 [facility] Comment on above: Performed By: #### B MP #### [facility] [address] [address] [address] Bebeto Alvarado Glucose [Mass/Vol] 101 mg/dL Normal 74-106 [facility] Comment on above: Performed By: #### B MP #### [facility] [address] [address] [address] Bebeto Alvarado Potassium [Moles/Vol] 3.8 mmol/L Normal 3.5-5.1 [facility] Comment on above: Performed By: #### B MP #### [facility] [address] [place] [address] Dr. Bebeto Alvarado Sodium [Moles/Vol] 143 mmol/L Normal 136-145 [facility] Comment on above: Performed By: #### B MP #### [facility] [address] [place] [address] Dr. Bebeto Alvarado Urea nitrogen [Mass/Vol] 16.0 mg/dL Normal 7.0-18.0 [facility] Comment on above: Performed By: #### B MP #### [facility] [address] [place] [address] Dr. Bebeto Alvarado Urea nitrogen/Creatinine [Mass ratio] 16.8 mg/mg Normal [facility] Comment on above: Performed By: #### B MP #### [facility] [address] [place] [address] Dr. Bebeto Alvarado CBC AUTO DIFFon 11-21-2021 BASO # 0.1 103/ul Normal 0.0-0.1 [facility] Comment on above: Performed By: #### A 1C #### [facility] [address] [place] [address] Dr. Bebeto Alvarado Basophils/100 WBC (Bld) 1.0 % Normal 0.2-2.0 [facility] Comment on above: Performed By: #### A 1C #### [facility] [address] [place] [address] Dr. Bebeto Alvarado EO # 0.2 103/ul Normal 0.0-0.7 [facility] Comment on above: Performed By: #### A 1C #### [facility] [address] [place] [address] Dr. Bebeto Alvarado Eosinophils/100 WBC (Bld) 3.3 % Normal 0.9-7.0 [facility] Comment on above: Performed By: #### A 1C #### [facility] [address] [place] [address] Dr. Bebeto Alvarado Erythrocyte distribution width (RBC) [Ratio] 13.8 % Normal 11.0-15.0 [facility] Comment on above: Performed By: #### A 1C #### [facility] [address] [place] [address] Dr. Bebeto Alvarado Hematocrit (Bld) [Volume fraction] 38.8 % Normal 36.0-48.0 [facility] Comment on above: Performed By: #### A 1C #### [facility] [address] [place] [address] Dr. Bebeto Alvarado Hemoglobin (Bld) [Mass/Vol] 12.5 g/dL Normal 12.0-16.0 [facility] Comment on above: Performed By: #### A 1C #### [facility] [address] [place] [address] Dr. Bebeto Alvarado IG # 0.02 10e3/ul Normal 0.00-0.03 [facility] Comment on above: Performed By: #### A 1C #### [facility] [address] [place] [address] Dr. Bebeto Alvarado IG % 0.3 % Normal 0.0-0.5 [facility] Comment on above: Performed By: #### A 1C #### [facility] [address] [place] [address] Dr. Bebeto Alvarado LYMPH # 1.9 103/ul Normal 1.2-3.8 [facility] Comment on above: Performed By: #### A 1C #### [facility] [address] [place] [address] Dr. Bebeto Alvarado Lymphocytes/100 WBC (Bld) 29.6 % Normal 20.5-60.0 [facility] Comment on above: Performed By: #### A 1C #### [facility] [address] [place] [address] Dr. Bebeto Alvarado MANUAL DIFF REQ NO Normal [facility] Comment on above: Performed By: #### A 1C #### [facility] [address] [place] [address] Dr. Bebeto Alvarado MCH (RBC) [Entitic mass] 28.0 pg Normal 26.7-34.0 [facility] Comment on above: Performed By: #### A 1C #### [facility] [address] [place] [address] Dr. Bebeto Alvarado MCHC (RBC) [Mass/Vol] 32.2 g/dL Normal 29.9-35.2 [facility] Comment on above: Performed By: #### A 1C #### [facility] [address] [place] [address] Dr. Bebeto Alvarado MCV (RBC) [Entitic vol] 86.8 fL Normal 81.0-99.0 [facility] Comment on above: Performed By: #### A 1C #### [facility] [address] [place] [address] Dr. Bebeto Alvarado MONO # 0.4 103/ul Normal 0.3-0.8 [facility] Comment on above: Performed By: #### A 1C #### [facility] [address] [place] [address] Dr. Bebeto Alvarado Monocytes/100 WBC (Bld) 5.7 % Normal 1.7-12.0 [facility] Comment on above: Performed By: #### A 1C #### [facility] [address] [place] [address] Dr. Bebeto Alvarado NEUT # 3.8 103/ul Normal 1.4-6.5 [facility] Comment on above: Performed By: #### A 1C #### [facility] [address] [place] [address] Dr. Bebeto Alvarado Neutrophils/100 WBC (Bld) 60.1 % Normal 43.0-75.0 [facility] Comment on above: Performed By: #### A 1C #### [facility] [address] [address] [address] Bebeto Alvarado Platelet mean volume (Bld) [Entitic vol] 11.0 fL Normal 9.5-13.5 [facility] Comment on above: Performed By: #### A 1C #### [facility] [address] [place] [address] Dr. Bebeto Alvarado PLT 264 103/ul Normal 150-450 [facility] Comment on above: Performed By: #### A 1C #### [facility] [address] [address] [address] Bebeto Alvarado RBC 4.47 106/ul Normal 4.20-5.40 [facility] Comment on above: Performed By: #### A 1C #### [facility] [address] [place] [address] Dr. Bebeto Alvarado WBC 6.3 103/ul Normal 4.0-11.0 [facility] Comment on above: Performed By: #### A 1C #### [facility] [address] [place] [address] Dr. Bebeto Alvarado GLYCOHEMOGLOBIN A1Con 2021 ADA RECOMMENDATION SEE BELOW Normal [facility] Comment on above: Result Comment: ADA RECOMMENDED LIMIT 4.0 - 6.0 ADA THERAPEUTIC TARGET < 7.0 ACTION SUGGESTED > 7.0 Performed By: #### A 1C #### [facility] [address] [place] [address] Dr. Bebeto Alvarado Glucose [Mass/Vol] 105 mg/dL Normal [facility] Comment on above: Performed By: #### A 1C #### [facility] [address] [place] [address] Dr. Bebeto Alvarado HbA1c (Bld) [Mass fraction] 5.3 % Normal 4.5-6.2 [facility] Comment on above: Performed By: #### A 1C #### [facility] [address] [place] [address] Dr. Bebeto Alvarado IRONon 11-21-2021 Iron [Mass/Vol] 59.0 ug/dL Normal 50.0-170.0 [facility] Comment on above: Performed By: #### A 1C #### [facility] [address] [address] [address] Bebeto Alvarado LIPID PROFILEon 11-21-2021 CHOL-HDL RATIO NORM SEE BELOW Normal [facility] Comment on above: Result Comment: 3.3 - 4.4 LOW RISK 4.4 - 7.1 AVERAGE RISK 7.1 - 11.0 MODERATE RISK >11.0 HIGH RISK Performed By: #### C MP, LIPID #### [facility] [address] [address] [address] Bebeto Alvarado Cholesterol [Mass/Vol] 139 mg/dL Normal <=200 [facility] Comment on above: Performed By: #### C MP, LIPID #### [facility] [address] [address] [address] Bebeto Alvarado Cholesterol in HDL [Mass/Vol] 35 mg/dL Critically low 40-60 [facility] Comment on above: Performed By: #### C MP, LIPID #### [facility] [address] [address] [address] Bebeto Alvarado Cholesterol in LDL [Mass/Vol] 69.6 mg/dL Normal [facility] Comment on above: Performed By: #### C MP, LIPID #### [facility] [address] [place], [place] [address] Dr. Bebeto Alvarado Cholesterol.total/Chol esterol in HDL [Mass ratio] 4.0 {ratio} Normal [facility] Comment on above: Performed By: #### C MP, LIPID #### [facility] [address] [address] [address] Bebeto Alvarado HDL NORMAL > or = 60 mg/dl - LO W CARDIOVASCULAR RISK <40 mg/dl - HIGH CARDIOVASCULAR RISK Normal [facility] Comment on above: Performed By: #### C MP, LIPID #### [facility] [address] [address] [address] Bebeto Alvarado LDL CALC NORMAL SEE BELOW Normal [facility] Comment on above: Result Comment: <100 mg/dl OPTIMAL 100 - 129 mg/dl NEAR OR ABOVE OPTIMAL 130 - 159 mg/dl BORDERLINE HIGH 160 - 189 mg/dl HIGH >190 mg/dl VERY HIGH Performed By: #### C MP, LIPID #### [facility] [address] [place] [address] Dr. Bebeto Alvarado Triglyceride [Mass/Vol] 172 mg/dL Critically high <=150 [facility] Comment on above: Performed By: #### C MP, LIPID #### [facility] [address] [place] [address] Dr. Bebeto Alvarado VLDL CALC 34.4 mg/dL Normal [facility] Comment on above: Performed By: #### C MP, LIPID #### [facility] [address] [place] [address] Dr. Bebeto Alvarado PROF 14(COMP METB)on 022 Albumin [Mass/Vol] 3.8 g/dL Normal 3.4-5.0 [facility] Comment on above: Performed By: #### C MP, LIPID #### [facility] [address] [place] [address] Dr. Bebeto Alvarado Albumin/Globulin [Mass ratio] 1.1 {ratio} Normal [facility] Comment on above: Performed By: #### C MP, LIPID #### [facility] [address] [place] [address] Dr. Bebeto Alvarado ALP [Catalytic activity/Vol] 96 U/L Normal 46-116 [facility] Comment on above: Performed By: #### C MP, LIPID #### [facility] [address] [place] [address] Dr. Bebeto Alvarado ALT [Catalytic activity/Vol] 25 U/L Normal 14-59 [facility] Comment on above: Performed By: #### C MP, LIPID #### [facility] [address] [place] [address] Dr. Bebeto Alvarado Anion gap [Moles/Vol] 11.8 mmol/L Normal [facility] Comment on above: Performed By: #### C MP, LIPID #### [facility] [address] [place] [address] Dr. Bebeto Alvarado AST [Catalytic activity/Vol] 20 U/L Normal 15-37 [facility] Comment on above: Performed By: #### C MP, LIPID #### [facility] [address] [place] [address] Dr. Bebeto Alvarado Bilirubin [Mass/Vol] 0.4 mg/dL Normal 0.2-1.0 [facility] Comment on above: Performed By: #### C MP, LIPID #### [facility] [address] [place] [address] Dr. Bebeto Alvarado Calcium [Mass/Vol] 8.8 mg/dL Normal 8.5-10.1 [facility] Comment on above: Performed By: #### C MP, LIPID #### [facility] [address] [place] [address] Dr. Bebeto Alvarado Chloride [Moles/Vol] 106 mmol/L Normal 98-107 [facility] Comment on above: Performed By: #### C MP, LIPID #### [facility] [address] [place] [address] Dr. Bebeto Alvarado CO2 [Moles/Vol] 27.0 mmol/L Normal 21.0-32.0 [facility] Comment on above: Performed By: #### C MP, LIPID #### [facility] [address] [place] [address] Dr. Bebeto Alvarado Creatinine [Mass/Vol] 0.97 mg/dL Normal 0.55-1.02 [facility] Comment on above: Performed By: #### C MP, LIPID #### [facility] [address] [place] [address] Dr. Bebeto Alvarado EGFR-AF CITIZEN OF [place] >60 Normal >=60 [facility] Comment on above: Performed By: #### C MP, LIPID #### [facility] [address] [place] [address] Dr. Bebeto Alvarado EGFR-NON AF CITIZEN OF [place] 59 mL/min/1.73m2 Critically low >=60 [facility] Comment on above: Performed By: #### C MP, LIPID #### [facility] [address] [place] [address] Dr. Bebeto Alvarado Globulin (S) [Mass/Vol] 3.4 g/dL Normal [facility] [facility] Comment on above: Performed By: #### C MP, LIPID #### [facility] [address] [address] [address] Bebeto Alvarado Glucose [Mass/Vol] 103 mg/dL Normal 74-106 [facility] Comment on above: Performed By: #### C MP, LIPID #### [facility] [address] [place] [address] Dr. Bebeto Alvarado Potassium [Moles/Vol] 3.8 mmol/L Normal 3.5-5.1 [facility] Comment on above: Performed By: #### C MP, LIPID #### [facility] [address] [place] [address] Dr. Bebeto Alvarado Protein [Mass/Vol] 7.2 g/dL Normal 6.4-8.2 [facility] Comment on above: Performed By: #### C MP, LIPID #### [facility] [address] [place] [address] Dr. Bebeto Alvarado Sodium [Moles/Vol] 141 mmol/L Normal 136-145 [facility] Comment on above: Performed By: #### C MP, LIPID #### [facility] [address] [place] [address] Dr. Bebeto Alvarado Urea nitrogen [Mass/Vol] 11.0 mg/dL Normal 7.0-18.0 [facility] Comment on above: Performed By: #### C MP, LIPID #### [facility] [address] [place] [address] Dr. Bebeto Alvarado Urea nitrogen/Creatinine [Mass ratio] 11.3 mg/mg Normal [facility] Comment on above: Performed By: #### C MP, LIPID #### [facility] [address] [place] [address] Dr. Bebeto Alvarado URIC ACID SERUMon 11-21-2021 Urate [Mass/Vol] 7.3 mg/dL Critically high 2.6-6.0 [facility] Comment on above: Performed By: #### A 1C #### [facility] [address] [place], [place] [address] Dr. Bebeto Alvarado VITAMIN B12on 11-21-2021 Cobalamin (Vitamin B12) [Mass/Vol] 2123.0 pg/mL Critically high 193.0-986.0 [facility] Comment on above: Performed By: #### A 1C #### [facility] [address] [place] [address] Dr. Bebeto Alvarado Physician Referralon 022 Physician Referral [id number] Normal [facility] KNEE RIGHT 1 OR 2 VWSon KNEE RIGHT 1 OR 2 VWS [facility] Department of Radiology [address] [place] [id number] ======== Patient Name: MICHELLE BE : 1960 Sex: F Age: Race: White Pt. Location: Patient Status: O Ordered Date: 02/08/2019 10:40:00 AM Completed Date: 02/08/2019 10:38 AM Requesting Provider: AHSAN BINGHAM Attending Provider: AHSAN BINGHAM Report Copy To: Signs & Symptoms: S82.001A Unsp fracture of right patella, init for clos fx I10 History: [place] Comments: , , , Ordering Provider - [...] Electronically signed by:Debra Del Cid. Transcribed by: [email or web address], User Resident: Electronically Signed by: DEBRA DEL CID @ 02/08/2019 11:16 AM Normal [facility] Comment on above: Order Comment: , Vie ws (X-RAY, KNEE): Radiologic Protocol , Weight Bearing?: N , With or Without Brace/Cast/Collar: With , Views (X-RAY, KNEE): Radiologic Protocol , Weight Bearing?: N , With or Without Brace/Cast/Collar: With , , , Ordering Provider - AHSAN BINGHAM PA-C , KNEE RIGHT 1 OR 2 [facility] KNEE RIGHT 1 OR 2 [facility] Department of Radiology [address] [place] [id number] ======== Patient Name: MICHELLE BE : [...] complications. Electronically signed by:Tomasz Stoll. Transcribed by: [email or web address], User Resident: Electronically Signed by: TOMASZ STOLL @ 12/07/2018 11:14 AM Normal [facility] Comment on [...] Son KNEE RIGHT 1 OR 2 VWS [facility] Department of Radiology [address] [place] [id number] ======== Patient Name: MICHELLE BE : 1960 Sex: F Age: Race: White Pt. 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 Transcribed by: [email or web address], User Resident: Electronically Signed by: ANUP ELLISON @ 10/06/2018 02:48 PM Normal [facility] Comment on above: Order Comment: , Rossie ws (X-RAY, KNEE): Radiologic Protocol , Weight Bearing?: N , With or Without Brace/Cast/Collar: With , Views (X-RAY, KNEE): Radiologic Protocol , Weight Bearing?: N , With or Without Brace/Cast/Collar: With , , , Ordering Provider - AHSAN BINGHAM PA-C , KNEE RIGHT 1 OR 2 [facility] 08-05 KNEE RIGHT 1 OR 2 [facility] Department of Radiology [address] [place] [id number] ======== Patient Name: MICHELLE BE : [...] effusion Electronically signed by:Anup Ellison. Transcribed by: [email or web address], User Resident: Electronically Signed by: ANUP ELLISON @ 08/26/2018 04:56 PM [place] [facility] Comment on above: Order Comment: , Vie ws (X-RAY, KNEE): Radiologic Protocol , Weight Bearing?: N , With or Without Brace/Cast/Collar: With , Views (X-RAY, KNEE): Radiologic Protocol , Weight Bearing?: N , With or Without Brace/Cast/Collar: With , , , Ordering Provider - AHSAN BINGHAM PA-C , KNEE RIGHT 1 OR 2 VWSon 07-06 KNEE RIGHT 1 OR 2 VWS [facility] Department of Radiology [address] [place] [address] ======== Patient Name: IMCHELLE BE : 1960 Sex: F Age: Race: White Pt. Location: 84 Patient Status: Ordered Date: 07/29/2018 2:10:00 PM Completed Date: 07/29/2018 02:12 PM Requesting Provider: AHSAN BINGHAM Attending Provider: Report Copy To: Signs & Symptoms: S82.001A Unsp fracture of right patella, init for clos fx I10 History: [place] Comments: , , , Ordering Provider - AHSAN BINGHAM PA-C , Exam: KNEE RIGHT 1 OR 2 [facility] ======== KNEE RIGHT 1 OR 2 [facility] 07/29/2018 2:12 PM EDT SIGNS AND [...] compartment Electronically signed by:Anup Ellison. Transcribed by: [email or web address], User Resident: Electronically Signed by: ANUP ELLISON @ 07/29/2018 03:41 PM Normal [facility] Comment on above: Order Comment: , Vie ws (X-RAY, KNEE): Radiologic Protocol , Weight Bearing?: N , With or Without Brace/Cast/Collar: With , Views (X-RAY, KNEE): Radiologic Protocol , Weight Bearing?: N , With or Without Brace/Cast/Collar: With , , , Ordering Provider - AHSAN BINGHAM PA-C , KNEE RIGHT 3 [facility] 9 KNEE RIGHT 3 [facility] Department of Radiology [address] [place] [phone] ======== Patient Name: MICHELLE BE : [...] knee Electronically signed by:Anup Ellison. Transcribed by: [email or web address], User Resident: Electronically Signed by: ANUP ELLISON @ 07/15/2018 03:31 PM Normal [facility] Comment on above: Order Comment: , Mabel ws (X-RAY, KNEE): Radiologic Protocol , Weight Bearing?: N , With or Without Brace/Cast/Collar: With , Views (X-RAY, KNEE): Radiologic Protocol , Weight Bearing?: N , With or Without Brace/Cast/Collar: With , , , Ordering Provider - AHSAN BINGHAM PA-C , Operative Reporton 9 Operative Report MR#: [id number] S [facility] Pt. Name: Michelle Be Room #: 0C [...] Duarte MD Date Trans: 07/03/2018 04:28 Monse/terry [id number] Normal [facility] *ANAEROBIC CULTUREon 019 *ANAEROBIC CULTURE Clinical Report: (D) Specimen/Source: SWAB/RT KNEE Collected: 07/02/2018 13:53 Status: Final Last Updated: 07/07/2018 08:02 CULT RES (Final) No Anaerobes Isolated 5 Days Normal [facility] Comment on above: Performed By: #### 3 0312 #### [address] *WOUND CULTUREon 07-02-2018 *WOUND CULTURE Clinical Report: (D) Specimen/Source: WOUND/INTRAOP SPEC Collected: 07/02/2018 13:53 Status: Final Last Updated: 07/07/2018 10:13 (1) #1 RT KNEE GRAM (Final) Rare Polys No Bacteria Seen CULT RES (Final) No Growth Day 5 Normal [facility] Comment on above: Order Comment: #1 RT KNEE Performed By: #### 3 3223 #### [address] [address] KNEE RIGHT 1 OR 2 [facility] 06-05 KNEE RIGHT 1 OR 2 S [facility] Department of Radiology [address] [place] [phone] ======== Patient Name: MICHELLE BE : [...] PATELLA Exam: KNEE RIGHT 1 OR 2 [facility] ======== KNEE RIGHT 1 OR 2 [...] Electronically signed by:Debra Del Cid. Transcribed by: [email or web address], User Resident: Electronically Signed by: DEBRA DEL CID @ 07/02/2018 02:03 PM Normal [facility] Comment on above: Order Comment: ORIF VS PERCUTANEOUS FIXATION RIGHT PATELLA POC GLUCOSE LABon 07-02-2018 Glucose [Mass/Vol] 108 mg/dL High 70-100 [facility] Comment on above: Performed By: #### 8 5499 #### [facility] [address] [place] [address], [facility] APTTon 06-30-2018 aPTT Coag (Bld) [Time] 30.6 s Normal 25.0-35.0 Th e [facility] Comment on above: Result Comment: ALL RESULTS [...] THIS PURPOSE. Performed By: #### 5 6101, [id number] #### [facility] [address] [facility] [place] [address], [facility] BASIC METABOLIC PANELon 06-05 Calcium [Mass/Vol] 9.7 mg/dL Normal 8.6-10.3 [facility] Comment on above: Performed By: #### 0 0071 #### [facility] [address] [facility] [place] [address], [facility] Chloride [Moles/Vol] 102 mmol/L Normal 98-107 [facility] Comment on above: Performed By: #### 0 0071 #### [facility] [address] [facility] [place] [address], [facility] CO2 [Moles/Vol] 28 mmol/L Normal 21-31 [facility] Comment on above: Performed By: #### 0 0071 #### [facility] [address] [facility] [place] [address], [facility] Creatinine [Mass/Vol] 1.20 mg/dL Normal 0.60-1.20 [facility] Comment on above: Performed By: #### 0 0071 #### [facility] [address] [place] [address], [place] GFR/1.73 sq M predicted among blacks MDRD (S/P/Bld) [Vol rate/Area] 56 ml/min/1.73sq m Abnormal >60 [facility] Comment on above: Performed By: #### 0 0071 #### [facility] [address] [place] [address], [place] GFR/1.73 sq M predicted among non-blacks MDRD (S/P/Bld) [Vol rate/Area] 47 ml/min/1.73sq m Abnormal >60 [facility] Comment on above: Performed By: #### 0 0071 #### [facility] [address] [place] [address], [facility] Glucose [Mass/Vol] 97 mg/dL Normal 70-100 [facility] Comment on above: Performed By: #### 0 0071 #### [facility] [address] [place] [address], [facility] Potassium [Moles/Vol] 4.1 mmol/L Normal 3.5-5.1 [facility] Comment on above: Performed By: #### 0 0071 #### [facility] [address] [place] [address], [place] Sodium [Moles/Vol] 137 mmol/L Normal 136-145 [facility] Comment on above: Performed By: #### 0 0071 #### [facility] [address] [place] [address], [facility] Urea nitrogen [Mass/Vol] 19 mg/dL Normal 7-25 [facility] Comment on above: Performed By: #### 0 0071 #### [facility] [address] [place] [address], [place] CBC W/DIFFon 06-30-2018 ABS BASOPHILS 0.1 10*3/uL Normal 0.0-0.2 [facility] Comment on above: Performed By: #### 5 0103 #### [facility] [address] [facility] [place] [address], [facility] ABS IMM GRANS 0.0 10*3/uL Normal 0.0-0.2 [facility] Comment on above: Performed By: #### 5 0103 #### [facility] [address] [facility] [place] [address], [facility] ABS NEUTROPHILS 6.4 10*3/uL Normal 1.6-7.6 [facility] Comment on above: Performed By: #### 5 0103 #### [facility] [address] [place] [address], [facility] Basophils/100 WBC (Bld) 0.7 % Normal 0.0-1.0 [facility] Comment on above: Performed By: #### 5 0103 #### [facility] [address] [place] [address], [facility] Eosinophils (Bld) [#/Vol] 0.2 10*3/uL Normal 0.0-0.5 [facility] Comment on above: Performed By: #### 5 0103 #### [facility] [address] [facility] [place] [address], [facility] Eosinophils/100 WBC (Bld) 1.5 % Normal 0.0-6.0 [facility] Comment on above: Performed By: #### 5 0103 #### [facility] [address] [facility]. [address] Erythrocyte distribution width (RBC) [Ratio] 14.4 % Normal 11.5-15.0 [facility] Comment on above: Performed By: #### 3 #### [facility] [address] Hematocrit (Bld) [Volume fraction] 40.6 % Normal 36.0-45.0 [facility] Comment on above: Performed By: #### 5 3 #### [facility] [address] [facility]. [address] Hemoglobin (Bld) [Mass/Vol] 13.3 g/dL Normal 12.0-15.0 [facility] Comment on above: Performed By: #### 3 #### [facility] [address] [place] [address], [facility] IMMATURE GRANS 0.4 % Normal 0.0-1.0 [facility] Comment on above: Performed By: #### 102 #### [facility] [address] Lymphocytes (Bld) [#/Vol] 2.6 10*3/uL Normal 1.2-4.0 [facility] Comment on above: Performed By: #### 102 #### [facility] [address] Lymphocytes/100 WBC (Bld) 26.5 % Normal 20.0-45.0 [facility] Comment on above: Performed By: #### 5 3 #### [facility] [address] MCH (RBC) [Entitic mass] 27.4 pg Normal 27.0-33.0 [facility] Comment on above: Performed By: #### 3 #### [facility] [address] MCHC (RBC) [Mass/Vol] 32.8 g/dL Normal 32.0-35.0 [facility] Comment on above: Performed By: #### 5 3 #### [facility] [address] [place] [address], [facility] MCV (RBC) [Entitic vol] 83.5 fL Normal 82.0-98.0 [facility] Comment on above: Performed By: #### 3 #### [facility] [address] [place] [address], [facility] Monocytes (Bld) [#/Vol] 0.5 10*3/uL Normal 0.1-1.0 [facility] Comment on above: Performed By: #### 5 3 #### [facility] [address] [place] [address], [facility] MONOS 5.0 % Normal 5.0-12.0 [facility] Comment on above: Performed By: #### 5 0103 #### [facility] [address] [facility] [place] [address], [facility] Neutrophils/100 WBC (Bld) 65.9 % Normal 40.0-72.0 [facility] Comment on above: Performed By: #### 102 #### [facility] [address] [facility] [place] [id number], [facility] Nucleated RBC/100 WBC (Bld) [Ratio] 0 % Normal 0-0 [facility] Comment on above: Performed By: #### 102 #### [facility] [address] [facility] [address], [facility] PLAT CNT 290 10*3/uL Normal 150-400 [facility] Comment on above: Performed By: #### 102 #### [facility] [address] [facility] [facility] [place] [id number], [facility] RBC (Bld) [#/Vol] 4.86 10*6/uL Normal 3.80-5.00 [facility] Comment on above: Performed By: #### 3 #### [facility] [address] [facility] [place] [address], [facility] WBC (Bld) [#/Vol] 9.68 10*3/uL Normal 4.00-10.60 [facility] Comment on above: Performed By: #### 3 #### [facility] [address] [place] [address], [facility] KNEE RIGHT 1 OR 2 VWSon 06-05 KNEE RIGHT 1 OR 2 VWS [facility] Department of Radiology [address] [place] [address] ======== Patient Name: MICHELLE BE : 1960 Sex: F Age: Race: White Pt. 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, 7thD I10 History: [place] Comments: , Views (X-RAY, KNEE): Radiologic Protocol [...] Electronically signed by:Debra Del Cid. Transcribed by: [email or web address], User Resident: Electronically Signed by: DEBRA DEL CID @ 06/30/2018 11:52 AM Normal [facility] Comment on above: Order Comment: , Mabel ws (X-RAY, KNEE): Radiologic Protocol , Weight Bearing?: N , With or Without Brace/Cast/Collar: With , Views (X-RAY, KNEE): Radiologic Protocol , Weight Bearing?: N , With or Without Brace/Cast/Collar: With , , , Ordering Provider - AHSAN BINGHAM PA-C , PROTHROMBIN TIMEon 9 INR Coag (PPP) [Relative time] 0.98 {INR} Normal 0.91-1.16 [facility] Comment on above: Result Comment: ACCC P [...] CHEST 1995;108:[id number]-246S. Performed By: #### 5 6101, [address] #### [address] PT Coag (PPP) [Time] 13.0 s Normal 12.3-14.8 [facility] Comment on above: Result Comment: ALL RESULTS MUST BE INTERPRETED WITH RESPECT TO BLOOD DRAWING ARTIFACT OR DILUTION ERROR OF ANTICOAGULANT AT THE TIME OF SAMPLING. Performed By: #### 5 6101, [id number] #### [address] KNEE RIGHT 3 [facility] 9 KNEE RIGHT 3 S [facility] Department of Radiology [address] [place] [phone] ======== Patient Name: MICHELLE BE : [...] effusion Electronically signed by:Anup Ellison. Transcribed by: [email or web address], User Resident: Electronically Signed by: ANUP ELLISON @ 06/15/2018 03:50 PM Normal [facility] Comment on above: Order Comment: , Isaiah ght Bearing?: Y , Weight Bearing?: Y , , , Ordering Provider - AMPARO ZHANG PA-C , Vital Signs Date Time Vital Sign Value Performing Clinician Facility 05-18-2023 16:30-0500 Body height 162.6 cm Adelaida Carrion NP Work Phone: [facility] 05-18-2023 16:30-0500 Body mass index (BMI) [Ratio] 47.89 kg/m2 Adelaida Carrion NP Work Phone: [facility] 05-18-2023 16:30-0500 Body temperature 97.3 [degF] Adelaida Aichholz PLODDING MACHINE OPERATOR Work Phone: [facility] 05-18-2023 16:30-0500 Body weight 126.55 kg Adelaida Aichholz PLODDING MACHINE OPERATOR Work Phone: [facility] 05-18-2023 16:30-0500 Diastolic blood pressure 80 mm[Hg] Adelaida Aichholz PLODDING MACHINE OPERATOR Work Phone: [facility] 05-18-2023 16:30-0500 Heart rate 76 /min Adelaida Aichholz PLODDING MACHINE OPERATOR Work Phone: [facility] 05-18-2023 16:30-0500 Respiratory rate 19 /min Adelaida Aichholz PLODDING MACHINE OPERATOR Work Phone: [facility] 05-18-2023 16:30-0500 SaO2% (BldA) [Mass fraction] 97 % Adelaida Aichholz PLODDING MACHINE OPERATOR Work Phone: [facility] 05-18-2023 16:30-0500 Systolic blood pressure 134 mm[Hg] Adelaida Aichholz PLODDING MACHINE OPERATOR Work Phone: [facility] 03-23-2023 12:10-0500 Diastolic blood pressure 98 mm[Hg] Adelaida Aichholz Work Phone: [facility] 03-23-2023 12:10-0500 Heart rate 76 /min Adelaida Aichholz Work Phone: [facility] 03-23-2023 12:10-0500 Respiratory rate 18 /min Adelaida Aichholz Work Phone: [facility] 03-23-2023 12:10-0500 SaO2% (BldA) [Mass fraction] 99 % Adelaida Aichholz Work Phone: [facility] 03-23-2023 12:10-0500 Systolic blood pressure 162 mm[Hg] Adelaida Aichholz Work Phone: [facility] 03-23-2023 10:53-0500 Body height 162.56 cm Adelaida Merryholnena Work Phone: [facility] 03-23-2023 10:53-0500 Body weight 125.64 kg Adelaida Merryholz Work Phone: [facility] 12-19-2022 14:55-0400 Body height 162.56 cm Rosemary Vernonmond Other [facility] [employer] Other 12-19-2022 14:55-0400 Body mass index (BMI) [Ratio] 47.85 kg/m2 Rosemary Vernonmond Other [employer] [facility] [employer] Other 12-19-2022 14:55-0400 Body temperature 97.8 [degF] Rosemary Vernonmond Other [employer] [facility] [employer] Other 12-19-2022 14:55-0400 Body weight 126.46 kg Rosemary Kirkland Other [employer] Other 12-19-2022 14:55-0400 Respiratory rate 20 /min Rosemary Kirkland Other [employer] Other 12-19-2022 14:55-0400 SaO2% (BldA) [Mass fraction] 95 % Rosemary Vernonmond Other [employer] Other 11-20-2022 13:12-0400 Body temperature 97.7 [degF] Adelaida Sousaholz Work Phone: [facility] 11-20-2022 13:12-0400 SaO2% (BldA) [Mass fraction] 96 % Adelaida Merryholz Work Phone: [facility] 11-20-2022 07:44-0400 Diastolic blood pressure 90 mm[Hg] Adelaida Aichholz Work Phone: [facility] 11-20-2022 07:44-0400 Heart rate 103 /min Adelaida Aichholz Work Phone: [facility] 11-20-2022 07:44-0400 Systolic blood pressure 152 mm[Hg] Adelaida Aichholz Work Phone: [facility] 11-19-2022 20:00-0400 Respiratory rate 18 /min Adelaida Aichholz Work Phone: [facility] 11-18-2022 15:18-0400 Body height 162.56 cm Adelaida Aichholz Work Phone: [facility] 11-17-2022 09:00-0400 Body weight 122.92 kg Adelaida Aichholz Work Phone: [facility] Encounters Encounter Date Encounter Type Care Provider Facility Start: 01-04-2024 End: 01-04-2024 ambulatory ADELAIDA AICHHOLZ Not Available Start: 12-10-2023 ambulatory Adelaida J Aichholz Facilit y:[facility] Start: 12-09-2023 End: 12-09-2023 ambulatory SUHAS GILLMOR [...] Available Start: 07-07-2023 End: 07-07-2023 ambulatory ADELAIDA SHEYLA Not Available Start: 06-29-2023 End: 06-30-2023 ambulatory [facility] Start: 05-22-2023 End: 05-22-2023 ambulatory ASHLEIGH HINES Not Available Start: 05-21-2023 Refill Adelaida Carrion PLODDING MACHINE OPERATOR Work Phone: [facility] Comment on above: Acute cystitis with hematuria (Primary Dx) Start: 05-18-2023 End: 05-18-2023 Office outpatient visit 25 minutes Adelaida Carrion PLODDING MACHINE OPERATOR Work Phone: [facility] Comment on above: Encounter for annual [...] Available Start: 05-18-2023 Bamboo flowsheet Adelaida Carrion PLODDING MACHINE OPERATOR Work Phone: [facility] Start: 05-18-2023 Bamboo flowsheet Adelaida Carrion PLODDING MACHINE OPERATOR Work Phone: [facility] Start: 05-18-2023 End: 05-18-2023 Patient encounter procedure Adelaida Carrion PLODDING MACHINE OPERATOR Work Phone: [facility] Start: 03-25-2023 End: 03-25-2023 ambulatory ADELAIDA SHEYLA Not Available Start: 03-23-2023 End: 03-23-2023 Admission to same day surgery center Adelaida Carrion Work Phone: [facility] Work Phone: Start: 03-23-2023 End: 03-23-2023 ambulatory Adelaida Carrion Work Phone: [facility] Work Phone: Start: 03-11-2023 End: 03-11-2023 ambulatory KALLI INTERIANO Keiry HARRY Not Available Start: 02-20-2023 End: 02-20-2023 ambulatory ASHLEIGH HINES Not Available Start: 02-12-2023 End: 02-12-2023 ambulatory Jace Graham Other [employer] Other Start: 02-12-2023 Telephone encounter Jace Haney [employer]iler T[employer] Start: 12-19-2022 End: 12-19-2022 ambulatory Rosemary Kirkland Other [employer] Other Start: 12-19-2022 Office outpatient ne w 10 minutes Rosemary Kirkland [facility] [place] Start: 11-17-2022 End: 11-20-2022 Evaluation and management of inpatient Adelaida Sheyla Work Phone: [facility] Work Phone: Start: 09-04-2022 ambulatory ARIAN JOHNSON . Facili ty:H1 Start: 08-26-2022 ambulatory NARENDRANATH LAKSHMIPATHY . Facility:H1 Start: 08-08-2022 End: 08-09-2022 ambulatory ATTORNEY GENERAL ADELAIDA MERRYHOLZ Facility:H1 Start: 07-25-2022 End: 07-26-2022 ambulatory ATTORNEY GENERAL ADELAIDA AICMarquesHOLZ Facility:H1 Start: 07-15-2022 End: 07-15-2022 ambulatory NARENDRANATH LAKSHMIPATHY . Facility:H1 Start: 07-11-2022 ambulatory NARENDRANATH LAKSHMIPATHY . Facility:H1 Start: 06-26-2022 End: 06-27-[address] FINA ZIMMER . Facility:H1 Start: 06-11-2022 ambulatory ATTORNEY GENERAL ADELAIDA AICMarquesHOLZ Facil ity:H1 Start: 05-21-2022 End: 06-11-2022 ambulatory LIVIER CARRION Facility:H1 Start: 05-08-2022 End: 05-09-2022 ambulatory LIVIER CARRION Facility:H1 Start: 04-28-2022 End: 04-28-2022 ambulatory LIVIER CARRION Facility:H1 Start: 04-03-2022 End: 04-04-[address] FINA ZIMMER . Facility:H1 Start: 03-19-2022 End: 03-20-2022 ambulatory LIVIER CARRION Facility:H1 Start: 02-20-2022 End: 02-20-2022 ambulatory GILMER PURA Facility:H1 Start: 01-10-2022 End: 02-12-2022 ambulatory BRIDGETTE Ca [facility] Facility:H1 Start: 01-02-2022 End: 01-03-[address] FINA ZIMMER . Facility:H1 Start: 01-01-2022 End: 01-02-2022 ambulatory [facility] Lanny [facility] Facility:H1 Start: 12-16-2021 End: 12-16-2021 [...] End: 07-03-2018 Patient encounter procedure SUKI ESCALANTE Facility:[facility] Procedures Date Procedure Procedure Detail Performing Clinician Start: 03-23-2023 Screening colonoscopy L oneal Sousabob Work Phone: Start: 03-23-2023 Colonoscopy Adelaida Jayden ramos PLODDING MACHINE OPERATOR Work Phone: Start: 09-15-2022 Mammography Adelaida Jayden ramos PLODDING MACHINE OPERATOR Work Phone: Start: 08-28-2022 Microscopic observat ion [Identifier] in Cervix by Cyto stain Adelaida Carrion NP Work Phone: Start: 07-02-2018 [facility] CHAPARRITA HENDRICKS Start: 07-02-2018 REMOVAL OF SUPPORT IMPLANT SUKI CHRISTIAN Start: 07-02-2018 TREAT KNEECAP FRACTURE SUKI EBRAHEIM Plan of Treatment Date Care Activity Detail Author Start: 03-23-2033 Screening for malignant neoplasm of colon [facility] Start: 08-28-2025 Screening for malignant neoplasm of cervix [facility] Start: 05-18-2024 Medicare Annual Wellness (AWV) Medicare Annual Wellness (AWV) [facility] Start: 09-16-2023 Screening for malignant neoplasm of breast Mammogram [facility] Start: 08-17-2023 End: 08-17-2023 Patient encounter procedure 08/17/2023 9:20 AM EDT Office Visit [facility] [address] [place] [phone] Adelaida Carrion NP [address] [place] [phone] [facility] Start: 05-22-2023 End: 05-22-2023 Patient encounter procedure 05/22/2023 8:45 AM EST Office Visit [facility] [address] [facility] [address] [place] [address] Ashleigh Hines PA [address] [facility] [address] [place] [address] [facility] Start: 05-18-2023 End: 05-18-2023 Patient encounter procedure 05/18/2023 4:30 PM EST Office Visit [facility] [address] [place] [address] Adelaida Carrion, BRIANA [address] [place] [phone] Arrived [facility] Comment on above: Arrived Start: 05-18-2023 End: 05-18-2024 XR Hip - left 3 Views XR hip left 2 or 3 views Imaging Routine Left hip pain Expected: 05/18/2023 (Approximate), Expires: 05/18/2024 [facility] Work Phone: Comment on above: Expected: 05/18/2023 (Approximate), Expires: 05/18/2024 Start: 03-23-2023 [facility] Start: 11-20-2022 [facility] Start: 11-18-2022 Referral to clinical enterprise sales executive [facility] Start: 11-17-2022 Hospital admission [facility] Start: 11-17-2022 [facility] Start: 12-06-1991 Screening for malignant neoplasm of cervix HPV/Cotest [facility] Start: 1960 Medicare Annual Wellness (AWV) Medicare Annual Wellness (AWV) [facility] Start: 1960 Screening for malignant neoplasm of colon [facility] Patient Education [facility] Work Phone: Patient referral [facility] Work Phone: [facility] Immunizations Immunization Date Immunization Notes Care Provider Parker stevens 02-13-2023 influenza, injectabl e, quadrivalent, preservative free Adelaida Carrion PLODDING MACHINE OPERATOR Work Phone: [facility] 02-13-2023 SARS-COV-2 (COVID-19 ) vaccine, mRNA, spike protein, LNP, PF, 50 mcg/0.5 mL Adelaida Sheyla PLODDING MACHINE OPERATOR Work Phone: [facility] 02-19-2022 diphtheria, tetanus toxoids and pertussis vaccine Adelaida Sheyla PLODDING MACHINE OPERATOR Work Phone: [facility] 03-02-2021 Moderna SARS-CoV-2 Vaccination Adelaida Sheyla PLODDING MACHINE OPERATOR Work Phone: [facility] 08-24-2020 Moderna SARS-CoV-2 Vaccination Adelaida Sheyla PLODDING MACHINE OPERATOR Work Phone: [facility] 07-27-2020 Moderna SARS-CoV-2 Vaccination Adelaida Sheyla WARREN Work Phone: [facility] 05-28-2018 influenza, injectabl e, quadrivalent, preservative free Adelaida oSusabob Work Phone: [facility] Payers Date Payer Category Payer Private Health Insurance [id number] 2022 Self-pay [id number] 2022 Medicare [id number] 2008 Unknown [id number] 1961 Unknown [id number] 2.16.8 40.1.791659.3.579.2.647 1961 Unknown [id number] 2.16.84 0.1.370938.3.579.2.593 1961 Unknown [id number] 2.16.84 0.1.156033.3.579.2.593 1961 Unknown [id number] 2.16.84 0.1.884130.3.579.2.593 1961 Unknown [id number] 2.16.84 0.1.392463.3.579.2.593 1961 Unknown [id number] 2.16.84 0.1.550304.3.579.2.593 1961 Unknown [id number] 2.16.84 0.1.084960.3.579.2.593 1961 Unknown [id number] 2.16.84 0.1.949622.3.579.2.593 1961 Unknown [id number] 2.16.84 0.1.818415.3.579.2.593 1961 Unknown [id number] 2.16.84 0.1.443555.3.579.2.593 1961 Unknown [id number] 2.16.84 0.1.458200.3.579.2.593 1961 Unknown [id number] 2.16.84 0.1.188053.3.579.2.593 1961 Unknown [id number] 2.16.84 0.1.384354.3.579.2.593 1961 Unknown [id number] 2.16.84 0.1.934908.3.579.2.593 1961 Unknown [id number] 2.16.84 0.1.502262.3.579.2.593 1961 Unknown [id number] 2.16.84 0.1.628785.3.579.2.593 1961 Unknown [id number] 2.16.84 0.1.500519.3.579.2.593 1961 Unknown [id number] 2.16.84 0.1.320463.3.579.2.593 1961 Unknown [id number] 2.16.84 0.1.360165.3.579.2.593 1961 Unknown [id number] 2.16.84 0.1.063451.3.579.2.593 1961 Unknown [id number] 2.16.84 0.1.542967.3.579.2.593 1961 Unknown [id number] 2.16.84 0.1.958235.3.579.2.593 1961 Unknown [id number] 2.16.84 0.1.536713.3.579.2.593 1961 Unknown [id number] 2.16.84 0.1.366714.3.579.2.593 1961 Unknown [id number] 2.16.84 0.1.692610.3.579.2.593 1961 Unknown [id number] 2.16. 840.1.429683.3.579.2.196 1961 Unknown [id number] 2.16.84 0.1.687962.3.579.2.9 1961 Unknown [id number] 2.16.84 0.1.208750.3.579.2.1258 1961 Unknown [id number] 2.16.84 0.1.382383.3.579.2.1258 1961 Unknown [id number] 2.16.84 0.1.974347.3.579.2.1258 1961 Unknown [id number] 2.16.84 0.1.440328.3.579.2.1258 1961 Unknown [id number] 2.16.84 0.1.098378.3.579.2.1258 1961 Unknown [id number] 2.16.84 0.1.625057.3.579.2.1258 1961 Unknown [id number] 2.16.84 0.1.106174.3.579.2.1258 1961 Unknown [id number] 2.16.84 0.1.250403.3.579.2.1258 1961 Unknown [id number] 2.16.84 0.1.582021.3.579.2.1258 1961 Unknown [id number] 2.16.84 0.1.092011.3.579.2.1258 1961 Unknown [id number] 2.16.84 0.1.073540.3.579.2.1258 1961 Unknown [id number] 2.16.840 .1.410404.3.579.2.1258 1961 Unknown [id number] 2.16.840 .1.832983.3.579.2.1258 1961 Unknown [id number] 2.16.840 .1.730273.3.579.2.1259 1959 Medicare [id number] 1959 Unknown [id number] Medicare Medicare [id number] Unknown [id number] 2.16.8 40.1.056496.3.579.2.531 Unknown [id number] 2.16.8 40.1.154732.3.579.2.531 Social History Date Type Detail Facility Start: 11-18-2022 End: 02-09-2023 Tobacco smoking status NHIS Ex-smoker (finding) [facility] Start: 1960 Sex Assigned At Female [facility] Start: 03-25-2023 End: 05-18-2023 Sex Assigned At [...] Sta tus Patient is Progressing Toward Baseline [facility] Work Phone: Clinical Notes 10-03-2021 [...] (BARIATRIC MULTIVITAMINS/IRON PO) Bariatric Multivitamins/Iron nystatin (Mycostatin) 435016 UNIT/GM powder 1 application , Topical, 2 [...] Anxiety 05/18/2023 Bipolar disorder with severe depression ([facility]) 05/18/2023 Brain vascular malformation Chronic pain disorder Colon polyps Constipation Degenerative cervical disc Degenerative lumbar disc Depression ([facility]) 05/18/2023 Diastolic dysfunction Dizziness 05/18/2023 Dysphagia Fibromyalgia Gastrocnemius equinus GERD (gastroesophageal reflux disease) Heart murmur Hematoma of right breast Hemiparesis, right ([facility]) Hemorrhoid int/external hemorrhoids Hiatal hernia Iron deficiency Left foot pain 03/25/2023 Lower extremity edema Mood disorder ([facility]) mixed mood disorder OSMANY (obstructive sleep apnea) Osteoporosis ([facility]) Overactive bladder Pre-diabetes Primary hypertension ([facility]) 03/25/2023 PTSD (post-traumatic stress disorder) ([facility]) Restless leg Right knee pain Right sided weakness S/P bariatric surgery Shingles Slurred speech Stroke ([facility]) 2018 Tenosynovitis, de Quervain Thoracic back [...] yearly and prn documented in this encounter [facility] 03-23-[address] [facility] 12-19-2022 Evaluation note Encounter Date Diagnosis Assessment Notes Dec, Skin candidiasis (ICD-10 - B37.2) Drink plenty fluids, get plenty of rest. Continue home medications as prescribed. Take the Diflucan as prescribed until gone. Follow-up with your family physician if no improvement in 2 to 3 days [employer] Other 08-17-2023 Discharge summary Author Eduardo bautista [facility] November 20, 2022 6:38am Note Date/Time November 20, 2022 6: 38am [facility] [address] [place] [address] Discharge Summary Signed Patient: Michelle Be MR#: [id number] : 1960 Acct:[id number] Age/Sex: 61 / F Adm Date: 3 Loc: Room: [address] [place] [address]: Gaudencio Monk MD Copies to: [...] at that time.? She reports moving to [place] from [place] in 2011 and was then diagnosed with bipolar disorder at [facility] in [place], where she still follows with a therapist.? Shereports that she has been with 7 therapists in the last 9 years and is currentlycompleting EMDR with her current therapist. Past hospitalizations: Her most recent hospitalization was 5 years ago [facility] for the same feeling she is experiencing [...] worked since 2010 due to her fibromyalgia.? [facility]. Relationships: Reports having [...] self or stop treatment, but to call [place], 911 or come to the nearest emergency [...] QID Follow Up: [facility] [Outside] [facility] [Outside] ( bdc manager: (Insert date/time here) Therapy:? (insert date/time [...] signed by Eduardo Monk MD> 11/20/22 0638 [facility] Work Phone: 1(886) 108-565508-16-2023 Progress note Author Eduardo bautista [facility] November 19, 2022 6:25am Note Date/Time November 19, 2022 6: 25am [facility] [address] [place] [address] Psychiatry Progress Note Signed Patient: Michelle Be MR#: [id number] : 1960 Acct:[id number] Age/Sex: 61 / F Adm Date: 3 Loc: Room: [address] [place] [address] Type : ADM IN Attending Dr: Gaudencio [...] signed by Eduardo Monk MD> 11/19/22 0625 [facility] Work Phone: 1(623) 725-976308-15-2023 Progress note Author Eduardo bautista [facility] November 18, 2022 11:01am Note Date/Time November 18, 2022 10 :11am [facility] [address] [place] [address] Psychiatry Progress Note Signed Patient: Michelle Be MR#: [id number] : 1960 Acct:[id number] Age/Sex: 61 / F Adm Date: 3 Loc: Room: [address] [place] [address] Type : ADM IN Attending Dr: Gaudencio [...] by requesting a schedule 2 referring to [place] for pain management specifically every 4-6 hours [...] time Documented By: Eduardo Monk MD 3 0031 Signed By: <Electronically signed by Eduardo Monk MD> 11/18/22 1101 <Electronically signed by MD DA Rangel> 11/18/22 1011 [facility] Work Phone: 1(909) 192-636008-14-2023 History and physical note Author Eduardo bautista [facility] November 17, 2022 12:48pm Note Date/Time November 17, 2022 12 :48pm [facility] [address] [place] [address] Psychiatry H&P Signed Patient: Michelle Be MR#: [id number] : 1960 Acct:[id number] Age/Sex: 61 / F Adm Date: 3 Loc: Room: [address] [place] [address] Type: ADM IN Attending Dr: Gaudencio Monk [...] at that time. She reports moving to [place] from [place] in 2011 and was then diagnosed with bipolar disorder at [facility] in [place], where she still follows with a therapist. Shereports that she has been with 7 therapists in the last 9 years and is currentlycompleting EMDR with her current therapist. Past hospitalizations: Her most recent hospitalization was 5 years ago [facility] [place] for the same feeling she is experiencing [...] worked since 2010 due to her fibromyalgia. [facility]. Relationships: Reports having [...] bilaterally. CN XII: Tongue protrusion midline [facility] Medical History (Updated 11/17/22 @ 10:42 [...] signed by Eduardo Monk MD> 11/17/22 1248 [facility] Work Phone: 1(664) 214-232203-23-2023 NoteCONSULTATION CONSULTATION DATE: 06/26/2022 To: Nurse Carrion [...] L5-S1 facet joint injection under fluoroscopic guidance.[facility] [id number] NotePROCEDURE: XR SHOULDER RT 2V or > [...] Electronically authenticated by: KINGSLEY CLEMENTS Date: 2022-05-09 09:21[facility]01-23-2023 NotePROCEDURE: XR WRIST LT MIN [...] authenticated by: KINGSLEY CLEMENTS Date: 2022-04-28 13:31[facility] [id number] NoteCONSULTATION CONSULTATION DATE: 04/03/2022 HISTORY OF PRESENT [...] her in three months, unless otherwise indicated.[facility] [id number] NoteCONSULTATION CONSULTATION DATE: 01/02/2022 This is a [...] prescription was sent by Dr. Macedo to [facility] in [place] for the compounded cream. She needs a [...] in three months' time unless otherwise indicated.[facility] [id number] NotePROCEDURE: XR ANKLE RT MIN 3 VIEWS, [...] by: KINGSLEY CLEMENTS Date: 2022-01-01 13:11[facility]09-28-2022 NotePROCEDURE: XR ANKLE RT MIN [...] by: KINGSLEY CLEMENTS Date: 2022-01-01 13:11[facility]08-18-2022 NotePROCEDURE: XR FOOT RT MIN 3 VIEWS HISTORY: Pain in right foot , chronic COMPARISON: XR foot right 2020 FINDINGS: BONES:No fracture, dislocation, bone lesion. Small calcaneal degenerative enthesophytes. SOFT TISSUES:No visible soft tissue swelling. EFFUSION:None visible. OTHER: Negative. IMPRESSION: 1. No acute bone abnormality or significant degenerative joint disease. Electronically authenticated by: KINGSLEY CLEMENTS Date: 2021-11-21 16:13[facility]06-30-2022 NoteCONSULTATION CONSULTATION DATE: 10/03/2021 This [...] patient agrees with the plan of care. [facility] Signed and Approved by: ZELDA MCDANIEL . 10/10/2021 10:22:00[facility]* Diagnosis Onset Date Resolution Status Allergies acute Bipolar 2 disorder acute Hypertension acute Morbid obesity with BMI of 45.0-49.9, adult acute OSMANY (obstructive sleep apnea) acute Restless legs syndrome acute [facility] Work Phone: Evaluation noteNo InformationN[employer] Other Evaluation noteNo assessment information available [facility] Work Phone: Evaluation note* Diagnosis [...] (CMS/HCC) Unspecified episodic mood disorder Primary hypertension ([facility]) Unspecified essential hypertension Left hip pain Pain in joint, pelvic region and thigh Open wound of anterior abdominal wall, initial encounter [facility] Diagnosis Acute cystitis with hematuria- Primary documented in this encounter [facility] and physical note Author Jace Graham [facility] March 23, 2023 11:21am Note Date/Time March 23, 2023 11:21am [facility] [address] [place] [address] Gastroenterology H&P Signed Patient: Michelle Be MR#: [id number] : 1960 Acct:[id number] Age/Sex: 62 / F Adm Date: 3 Loc: Room: Type: [facility] Attending Dr: Jace Graham MD Copies [...] signed by Jace Graham MD> 03/23/23 1121 [facility] Work Phone: History general Narrative - [...] see above surg Hospitalization History stroke 2018 [employer] Other Hospital Discharge instructions Additional Instructions Regular Diet [facility] Work [facility]: Hospital Discharge instructions Additional [...] years. -Follow up with PCP. -Office number [phone].[facility] Work Phone: Summary Purpose Family History [...] and content) DATE CREATED AUTHOR 02/18/2019 [facility] DATE CREATED AUTHOR AUTHOR'S ORGANIZ ATION 11/15/2021 [facility] DATE CREATED AUTHOR AUTHOR'S ORGANIZ ATION 08/16/2022 [facility] DATE CREATED AUTHOR AUTHOR'S ORGANIZ ATION 08/11/2023 [facility] DATE CREATED AUTHOR AUTHOR'S ORGANIZ ATION 12/23/2023 [facility] DATE CREATED AUTHOR AUTHOR'S ORGANIZ ATION 01/04/2024 [facility] dical Specialists EPIC Care Teams (unrecognized [...] MD Other Provider Active Joellen Le , PLODDING MACHINE OPERATOR-C Other Provider Active Severo Yancey MD Other Provider Active Rao Webber MD Other Provider Active Yuan Shi MD Other Provider Active Delroy Ramirez MD Other Provider Active Berta Comer , Other Provider Active Negrito Ruiz , DO Other Provider Active Lacho Singh , DO Other Provider Active Rachana Hobson , TOP LIFT NAILER Other Provider Active Rob Lake , DO Other Provider Active Jeff Alvarez MD Other Provider Active Urmila Rinaldi , TOP LIFT NAILER Other Provider Active Bina Mayberry , TOP LIFT NAILER Other Provider Active Mir Bradford MD Other Provider Active Te Da Silva MD Other Provider Active Debra Landaverde RN Other Provider Active Team Status: Inactive Member Role Status Dates Adelaida Carrion Primary Care Provider Active Jace Graham MD Attending Provider Active Vocational Services Specialist Relationship Specialty Start Date End Date José Luis Roberts MD [address] [place] [phone] PCP - General Family Medicine 05/18/23 Adelaida Carrion NP [address] [place] [phone] Referring Physician Nurse Practitioner 10/14/22 Vocational Services Specialist Relationship Specialty Start Date End Date José Luis Roberts MD [address] [place] [phone] PCP - General Family Medicine 05/18/23 Adelaida Carrion NP [address] [place] [phone] Referring Physician Nurse Practitioner 10/14/22 Vocational Services Specialist Relationship Specialty Start Date End Date José Luis Roberts MD [address] [place] [address] PCP - General Family Medicine 05/18/23 Adelaida Carrion NP [address] [place] [address] Referring Physician Nurse Practitioner 10/14/22 REASON FOR [...] BE BASED ON THE PRIMARY CLINICAL RECORDS. [employer] provides no warranty or guarantee of the accuracy or completeness of information in this document.
[2024-01-05 09:04] LABS: Anion Gap 11.1; BUN Creatinine Ratio 15.7; Calcium 9.2 mg/dL (8.5-10.1); Chloride 105 mmol/L (98-107); Estimated GFR (African America >60 (>=60); Estimated GFR (Non-African Ame 51 (>=60); Glucose 92 mg/dL (74-106); Potassium 4.1 mmol/L (3.5-5.1); Sodium 140 mmol/L (136-145)
== END 2024-01-05 08:12 | disposition home or self-care (01) ==
LOC: LAB 08:11
PROVIDERS: PCP Nurse Practitioner; Visit Provider Nurse Practitioner
DX: R60.0 Localized edema (principal)
CPT/HCPCS: 36415; 80048

== ENCOUNTER 2024-01-06 10:27 | Outpatient (OUT) | payer MEDICARE, SELFPAY ==
--- NOTE | 2024-01-06 10:54 | PM.CN ---
Consult Note: HPI Data of Consult Patient: known to practice within the last 3 years Requesting Physician: Bhakti Culp NP Primary Care Provider: Adelaida Carrion NP Consult Narrative Reason for consult: f/u Narrative: Nasim Ingram a pleasant 63 year old female presents for evaluation and management of chronic low back pain and left hip pain. Pain this morning 1/10 constant pain in middle and low back. Pain increased to 8/10 with standing, walking, housework, lifting, stairs, bending, and activity. Patient following with Dr Díaz for consideration of right knee replacement, pending dental clearance. Patient finds mild benefit from medication regimen. Patient recently underwent bilateral LCIH nerve RFA greater than 80% improvement ongoing. Patient continues to have moderate to severe middle and low back pain without numbness tingling or weakness. recent thoracic and lumbar xrays show mild degenerative changes throughout the spine. recently underwent bilateral T10-11 T11-12 MBB #1 with >90% improvement immediately following and 12 hours after the injection. cc:: CC: Bhakti Culp NP Review of Systems ROS Status of ROS 10 or more systems reviewed and unremarkable except as noted in history and below Musculoskeletal Reports: back pain PFSH [facility] Medical History FH: bariatric surgery ?Z84.89 - Family history of other specified conditions (ICD-10) Upper back pain ?M54.9 - Dorsalgia, unspecified (ICD-10) Osteoarthritis ?M19.90 - Unspecified osteoarthritis, unspecified site (ICD-10) Neck pain ?M54.2 - Cervicalgia (ICD-10) Low back pain ?M54.50 - Low back pain, unspecified (ICD-10) Fibromyalgia ?M79.7 - Fibromyalgia (ICD-10) Bipolar 1 disorder ?F31.9 - Bipolar disorder, unspecified (ICD-10) Acid reflux ?K21.9 - Gastro-esophageal reflux disease without esophagitis (ICD-10) Obesity ?E66.9 - Obesity, unspecified (ICD-10) Sleep apnea ?G47.30 - Sleep apnea, unspecified (ICD-10) Heart murmur ?R01.1 - Cardiac murmur, unspecified (ICD-10) High cholesterol ?E78.00 - Pure hypercholesterolemia, unspecified (ICD-10) Hypertension ?I10 - Essential (primary) hypertension (ICD-10) Surgical History S/P dilatation and curettage ?Z98.890 - Other specified postprocedural states (ICD-10) H/O breast biopsy ?Z98.890 - Other specified postprocedural states (ICD-10) S/P ORIF (open reduction internal fixation) fracture ?Z98.890 - Other specified postprocedural states (ICD-10) ?Z87.81 - Personal history of (healed) traumatic fracture (ICD-10) Hx of laparoscopic gastric banding ?Z98.84 - Bariatric surgery status (ICD-10) History of tonsillectomy and adenoidectomy ?Z90.89 - Acquired absence of other organs (ICD-10) History of appendectomy ?Z90.49 - Acquired absence of other specified parts of digestive tract (ICD-10) History of hemilaminectomy ?Z98.890 - Other specified postprocedural states (ICD-10) History of cholecystectomy ?Z90.49 - Acquired absence of other specified parts of digestive tract (ICD-10) Previous section ?Z98.891 - History of uterine scar from previous surgery (ICD-10) Social History Smoking status: Former smoker Meds Home Medications and Allergies Home Medications ?Medication ?Instructions ?Recorded ?Confirmed ?Type amlodipine 10 mg tablet (Norvasc) 10 mg PO DAILY 09/10/22 01/05/24 History biotin 1 mg capsule 5 mg PO DAILY 09/10/22 01/05/24 History cariprazine 4.5 mg capsule 4.5 mg PO Q24H 09/10/22 01/05/24 History (Vraylar) cetirizine 10 mg tablet (24Hour 10 mg PO DAILY PRN allergy symptoms 09/10/22 01/05/24 History Allergy) clonazepam 1 mg tablet 1 mg Q12H 09/10/22 History duloxetine 60 mg capsule,delayed mg PO BID 09/10/22 History release ferrous sulfate 325 mg (65 mg 325 mg PO BID 09/10/22 01/05/24 History iron) tablet (FeroSul) losartan 50 mg tablet (Cozaar) 100 mg PO DAILY 09/10/22 01/05/24 History magnesium 200 mg tablet 400 mg PO QDAY 09/10/22 01/05/24 History melatonin 12 mg tablet 12 mg PO .HS PRN sleep 09/10/22 01/05/24 History omeprazole 20 mg capsule,delayed 20 mg QDAY 09/10/22 History release ropinirole 4 mg tablet mg QDAY 09/10/22 History trazodone 150 mg tablet 300 mg .HS 09/10/22 History tizanidine 2 mg tablet 2 mg PO TID PRN muscle spasticity 10/01/23 01/05/24 Rx #90 tabs fluticasone propionate 50 1 spray intranasal DAILY PRN 10/20/23 01/05/24 History mcg/actuation nasal allergy symptoms spray,suspension (Flonase Allergy Relief) spironolactone 50 mg tablet 50 mg PO DAILY 10/20/23 01/05/24 History gabapentin 300 mg capsule mg BID 11/03/23 History calcium citrate 200 mg (950 mg) 200 mg PO QID 11/04/23 01/05/24 History tablet carvedilol 12.5 mg tablet mg 11/04/23 History multivitamin 1 tab PO DAILY 11/04/23 01/05/24 History Allergies Allergy/AdvReac Type Severity Reaction Status Date / Time levetiracetam [From Keppra] Allergy Severe Unknown Verified 01/05/24 07:03 adhesive Allergy Intermediate Blister Verified 01/05/24 07:03 Penicillins Allergy Intermediate Unknown Verified 01/05/24 07:03 tetracycline Allergy Intermediate Unknown Verified 01/05/24 07:03 eszopiclone [From Lunesta] Allergy Unknown Verified 01/05/24 07:03 milnacipran [From Savella] AdvReac Intermediate Agitated Verified 01/05/24 07:03 prochlorperazine AdvReac Intermediate Agitated Verified 01/05/24 07:03 [From Compazine] Exam Constitutional Documenting provider has reviewed patient's vital signs: yes Common normals: no apparent distress, oriented x3, healthy appearing, alert and well nourished General appearance: cooperative Nutritional appearance: obese HENMT Common normals: normocephalic, hearing grossly normal bilaterally and moist oral mucous membranes Head and scalp: normocephalic Eye Common normals: PERRL Pupil: PERRL Neck & C-Spine Common normals: full ROM General: normal visual inspection Chest Common normals: inspection of chest normal Respiratory Common normals: normal respiratory effort, no retractions and no use of accessory muscles Back & Pelvis Thoracic spine/upper back: ROM limited, pain with ROM and thoracic spinal tenderness Lumbar spine/lower back: ROM limited, pain with ROM, lumbar spinal tenderness and straight leg raise negative bilaterally Sacroiliac joints: SI joint(s) abnormal Other: positive facet loading and tednerness over bilateral T11-L3 facets pain over bilateral PSIS, positive autumn fadir thigh thrust and gaenslens mildly improved from prior no pain over bilateral LCIH nerve Extremity Common normals: normal to inspection and full ROM Left lower extremity: hip joint Other: no pain with external rotation and internal rotation of left hip Neuro Common normals: oriented x3, CN's II-XII intact bilaterally, moves all extremities, no focal motor deficits, no sensory deficits noted and deep tendon reflexes 2+ bilaterally Sensorium/orientation: alert Gait (neuro): normal gait Motor exam: strength 5/5 throughout and no movement abnormalities noted Psych Common normals: mental status grossly normal, thought process normal, cooperative, affect normal, speech normal and activity/motor behavior normal Speech: normal speech Thought process: normal thought process Results Additional Findings Additional findings: If on a controlled substance or opioids, I have checked an [place] report on this patient and there are no aberrancies noted in the prescribing history.??If on a controlled substance or opioid a drug screen was completed and reviewed within the last year, and if there has not been a drug screen completed we ordered one today to monitor higher risk, state monitored pain medication use. As part of providing excellent, safe, comprehensive care, the following was completed at our patient's visit: 1. A medication reconciliation and review to ensure accurate knowledge of current/active medications, including asking our patients to inform us about any [id number] medications or herbal remedies/nutritional supplements/alternative remedies. 2. A review to specifically ensure our patients have had annual screening for screening for depression, screening for tobacco use, and screening for unhealthy alcohol use. For concerning screenings had a discussion with the patient, provided patient education, and recommended follow-up with primary care provider when appropriate. If patient noted with a risk of falling, they received education on strength, gait, and balance training to prevent future risk of falling. Assessment and Plan Assessment and Plan (1) Thoracic spondylosis: (2) Lumbar spondylosis: (3) Muscle spasm: Plan proceed with bilateral T10-11 T11-12 MBBs x2 working towards RFA under fluoroscopy for chronic mid back pain unresponsive to PT/HEP greater than 6 weeks, conservative measures including heat ice and tylenol, cannot take NSAIDs. risks vs benefits reviewed continue current medications f/u after each injection
== END 2024-01-06 10:28 | disposition home or self-care (01) ==
LOC: PM 10:27
PROVIDERS: PCP Nurse Practitioner; Visit Provider Nurse Practitioner
DX: M47.814 Spondylosis without myelopathy or radiculopathy, thoracic region (principal); M47.816 Spondylosis without myelopathy or radiculopathy, lumbar region; M62.838 Other muscle spasm
CPT/HCPCS: G0463

== ENCOUNTER 2024-01-19 06:23 | Day surgery (SDC) | payer MEDICARE, SELFPAY ==
--- OUTSIDE RECORDS SUMMARY | 2024-01-19 06:26 | XMS_ITS | CCD ---
Author Organization [facility] Care Team Providers Care Control Equipment Electrician Name Role Phone EBRAHEIM, SUKI Admitting Unavailable EBRAHEIM, SUKI Attending Unavailable AICHHOLZ, ADELAIDA Referring Unavailable AICHHOLZ, ADELAIDA Primary Care Unavailable HI Procedure Practitioner Unavailab SUKI Jacob Surgeon Unavailable HI Procedure Practitioner Unavailab CHAPARRITA Goncalves Surgeon Unavailable BRIDGETTE MACEDO Admitting Unavailable BRIDGETTE MACEDO Attending Unavailable AICHHOLZ, HUMAN RESOURCES BENEFITS SPECIALIST ADELAIDA Primary Care Unavailable ZIMMER ., DR FINA Iverson Admitting Unavailable ZIMMER ., DR FINA Iverson Attending Unavailable AICHHOLZ, HUMAN RESOURCES BENEFITS SPECIALIST ADELAIDA Primary Care Unavailable MCDANIEL ., ZELDA Consulting Unavailable LAKSHMIPATHY ., NARENDRANATH Consulting Paula vailable LAKSHMIPATHY ., NARENDRANATH Admitting Paula vailable LAKSHMIPATHY ., NARENDRANATH Attending Paula vailable AICHHOLZ, HUMAN RESOURCES BENEFITS SPECIALIST ADELAIDA Primary Care Unavailable LAKSHMIPATHY ., NARENDRANATH Consulting Paula vailable AICHHOLZ, HUMAN RESOURCES BENEFITS SPECIALIST ADELAIDA Primary Care Unavailable MARKER ., DR CHAUDHRY Admitting Unavailable MARKER ., DR CHAUDHRY Attending Unavailable MARKER ., DR CHAUDHRY Consulting Unavailable AICHHOLZ, HUMAN RESOURCES BENEFITS SPECIALIST ADELAIDA Admitting Unavailable AICHHOLZ, HUMAN RESOURCES BENEFITS SPECIALIST ADELAIDA Attending Unavailable AICHHOLZ, HUMAN RESOURCES BENEFITS SPECIALIST ADELAIDA Primary Care Unavailable ZIMMER ., DR FINA Iverson Admitting Unavailable ZIMMER ., DR FINA Iverson Attending Unavailable AICHHOLZ, HUMAN RESOURCES BENEFITS SPECIALIST ADELAIDA Primary Care Unavailable MCDANIEL ., ZELDA Consulting Unavailable ZIMMER ., DR FINA Iverson Admitting Unavailable ZIMMER ., DR FINA Iverson Attending Unavailable AICHHOLZ, HUMAN RESOURCES BENEFITS SPECIALIST ADELAIDA Primary Care Unavailable MCDANIEL ., ZELDA Consulting Unavailable AICHHOLZ, HUMAN RESOURCES BENEFITS SPECIALIST ADELAIDA Admitting Unavailable AICHHOLZ, HUMAN RESOURCES BENEFITS SPECIALIST ADELAIDA Attending Unavailable AICHHOLZ, HUMAN RESOURCES BENEFITS SPECIALIST ADELAIDA Primary Care Unavailable AICHHOLZ, HUMAN RESOURCES BENEFITS SPECIALIST ADELAIDA Consulting Unavailable AICHOLZ, HUMAN RESOURCES BENEFITS SPECIALIST ADELAIDA Admitting Unavailable AICHHOLZ, HUMAN RESOURCES BENEFITS SPECIALIST ADELAIDA Attending Unavailable AICHOLZ, [facility] ADELAIDA Primary Care Unavailable AICHHOLZ, HUMAN RESOURCES BENEFITS SPECIALIST ADELAIDA Consulting Unavailable MISC, DR COTE Admitting Unavailable MISC, DR COTE Attending Unavailable AICHOLZ, [facility] ADELAIDA Primary Care Unavailable AICHHOLZ, HUMAN RESOURCES BENEFITS SPECIALIST ADELAIDA Consulting Unavailable ELYSSA, DR COTE Consulting Unavailable STARR, DR KINGSLEY Atkins Consulting Unavailable ZIMMER ., DR FINA Iverson Admitting Unavailable ZIMMER ., DR FINA Iverson Attending Unavailable AICHOLZ, [facility] ADELAIDA Primary Care Unavailable MCDANIEL ., ZELDA Consulting Unavailable ZIMMER ., DR FINA Iverson Admitting Unavailable ZIMMER ., DR FINA Iverson Attending Unavailable [facility], [facility] Primary Care Unavailable ZIMMER ., DR FINA Iverson Consulting Unavailable OMID LAY Consulting Unavailable ZIMMER ., DR FINA Iverson Admitting Unavailable ZIMMER ., DR FINA Iverson Attending Unavailable [facility], [facility] Primary Care Unavailable MCDANIEL ., ZELDA Consulting Unavailable [facility], [facility] Primary Care Unavailable HALKER ., ARIAN Admitting Unavailable HALKER ., ARIAN Attending Unavailable LAKSHMIPATHY ., NARENDRANATH Consulting Paula vailable HALKER ., ARIAN Consulting Unavailable LAKSHMIPATHY ., NARENDRANATH Admitting Paula vailable LAKSHMIPATHY ., NARENDRANATH Attending Paula vailable [facility], [facility] Primary Care Unavailable LAKSHMIPATHY ., NARENDRANATH Consulting Paula vailable AICHOLZ, HUMAN RESOURCES BENEFITS SPECIALIST ADELAIDA Admitting Unavailable AICHOLZ, HUMAN RESOURCES BENEFITS SPECIALIST ADELAIDA Attending Unavailable AICHOLZ, HUMAN RESOURCES BENEFITS SPECIALIST ADELAIDA Primary Care Unavailable AICHHOLZ, HUMAN RESOURCES BENEFITS SPECIALIST ADELAIDA Consulting Unavailable BRIDGETTE MACEDO Admitting Unavailable BRIDGETTE MACEDO Attending Unavailable AICHOLZ, HUMAN RESOURCES BENEFITS SPECIALIST ADELAIDA Primary Care Unavailable STARR, DR KINGSLEY Atkins Consulting Unavailable BRIDGETTE MACEDO Consulting Unavailable GILMER NEVES Admitting Unavailable GILMER NEVES Attending Unavailable PURA, GILMER Consulting Unavailable AICHOLZ, HUMAN RESOURCES BENEFITS SPECIALIST ADELAIDA Primary Care Unavailable AICHOLZ, HUMAN RESOURCES BENEFITS SPECIALIST ADELAIDA Primary Care Unavailable DR WILLI RINALDI Admitting Unavailable DEEJAY, DR WILLI Atkins Attending Unavailable DR WILLI RINALDI Consulting Unavailable AICHOLZ, HUMAN RESOURCES BENEFITS SPECIALIST ADELAIDA Primary Care Unavailable ALMAZ ., DANNY Admitting Unavailable ALMAZ ., DANNY Attending Unavailable DR KINGSLEY CLEMENTS Consulting Unavailable ALMAZ ., DANNY Consulting Unavailable LAKSHMIPATHY ., NARENDRANATH Admitting Paula vailable LAKSHMIPATHY ., NARENDRANATH Attending Paula vailable AICHHOLZ, HUMAN RESOURCES BENEFITS SPECIALIST ADELAIDA Primary Care Unavailable AICHHOLZ, HUMAN RESOURCES BENEFITS SPECIALIST ADELAIDA Admitting Unavailable AICHHOLZ, HUMAN RESOURCES BENEFITS SPECIALIST ADELAIDA Attending Unavailable AICHHOLZ, HUMAN RESOURCES BENEFITS SPECIALIST ADELAIDA Primary Care Unavailable AICHHOLZ, HUMAN RESOURCES BENEFITS SPECIALIST ADELAIDA Admitting Unavailable AICHHOLZ, HUMAN RESOURCES BENEFITS SPECIALIST ADELAIDA Attending Unavailable AICHHOLZ, HUMAN RESOURCES BENEFITS SPECIALIST ADELAIDA Primary Care Unavailable AICHHOLZ, HUMAN RESOURCES BENEFITS SPECIALIST ADELAIDA Consulting Unavailable ZIEBER, DR KINGSLEY Atkins Consulting Unavailable HALKER ., ARIAN Admitting Unavailable HALKER ., ARIAN Attending Unavailable AICHHOLZ, HUMAN RESOURCES BENEFITS SPECIALIST ADELAIDA Primary Care Unavailable Aichholz, Adelaida J Primary Care Provider MD Gaudencio Monk Admit Provider MD Gaudencio Monk Attending Provider JOHANN Vieira Other Provider Unavailable JOHANN Pina Other Provider Unavailable JOHANN Hurtado Other Provider Unavailable JOHANN Crooks Other Provider Unavailable JOHANN Mejias Other Provider Unavailable JOHANN Kim Other Provider Unavailable MD Walker Pringle Other Provider Dilans, SERVICER Adelaida Huddleston Other Provider [phone] DO Jessica Murillo Other Provider [phone] MD Obdulio Bragg Other Provider DO Joon Cristina Other Provider [phone] MD Torin Robert Other Provider [phone] MD Dawn Barrera Other Provider Karlene ANP- Mari Other Provider MD Sofi Almanzar Other Provider MD Sharad Gallegos Other Provider MD Aby Cain Other Provider MD Hillary Carrera Other Provider DO Julio César Mckeon Other Provider MD Valentine Mak Other Provider MD Raymond Strong Other Provider Rey, BRIANA-C Joellen Mcnair Other Provider MD Severo Yancey [...] José Luis Roberts MD Primary Care Provider [phone] Jamee JAIMESSyeda Attending Unavailable Jace Graham Admitting Unavailable Jace Graham Attending Unavailable Aichholnena, Adelaida J Primary Care Unavailable Aichholz, Adelaida J Primary Care Unavailable Eduardo Monk Admitting Unavailab le Aleshia, Eduardo Attending Unavailab ASHLEIGH Arizmendi Attending Unavailable AICHHOLZ, ADELAIDA Attending Unavailable ASHLEIGH HINES Attending Unavailable AICHHOLZ, ADELAIDA Attending Unavailable AICHHOLZ, ADELAIDA Attending Unavailable AICHHOLZ, ADELAIDA Attending Unavailable JR. HARRY GEORGE C Attending Unavaila ble AICHHOLZ, ADELAIDA Attending Unavailable AICHHOLZ, ADELAIDA Attending Unavailable SONAM BROWN Attending Unavailable AICHHOLZ, ADELAIDA Attending Unavailable WINDNASONAM VILLASENOR Attending Unavailable SUHAS TREJO Attending Unavailable AICHHOLZ, ADELAIDA Attending Unavailable AICHHOLZ, ADELAIDA Attending Unavailable Aichholz BRIANA, Adelaida Unavailable Miriam Suarez DO Unavailable Diana De Leon LPN Unavailable Unavailable Allergies Allergy Classification Reported Allergen(s) Allergy Type Date of Onset Reaction(s) Facility (7 sources) Adhesive Tape; Translations: [ADHESIVE TAPE] Propensity to adverse reactions (disorder) 04-06-19 14 rash [facility] Repository (3 sources) levETIRAcetam; Translations: [KEPPRA] Drug Allergy 07-02-19 19 [facility] Repository (3 sources) milnacipran; Translations: [SAVELLA] Drug Allergy 03-14-20 13 [facility] Repository (1 source) Penicillin; Translations: [PENICILLIN] Drug Allergy 01-16-20 18 [facility] Repository (5 sources) Prochlorperazi ne; Translations: [COMPAZINE] Drug Allergy 03-14-20 13 agitation [facility] Repository (13 sources) Tetracycline; Translations: [TETRACYCLINE] Drug Allergy 04-06-19 13 Hives, Unknown [facility] Repository (4 sources) Penicillins Drug allergy (disorder) 04-06-19 13 Unknown Reaction [facility] Repository (10 sources) levETIRAcetam; Translations: [levetiracetam ] Drug Allergy 12-13-19 Hallucinations, Other [facility] (10 sources) milnacipran; Translations: [milnacipran] Drug Allergy 12-13-19 22 hives, Hallucinations, Other, Unknown [facility] (8 sources) Prochlorperazi ne; Translations: [prochlorperaz ine] Drug Allergy 12-13-19 22 Unknown, Other [facility] (2 sources) Penicillin G Drug [facility] (2 sources) Tetracaine Drug Allergy [facility] Other (5 sources) Penicillins Drug Intolerance 12-13-19 Anaphylaxis [facility] (5 sources) Other Propensity to adverse reactions 12-13-19 Other [facility] (5 sources) Wound Dressing Adhesive Drug Allergy 09-20-19 23 Rash, Unknown [facility] (1 source) Penicillin Drug Allergy 12-20-19 23 [facility] Repository (1 source) Penicillins Drug allergy (disorder) 03-23-20 23 [facility] Repository (1 source) Tetracaine Drug Allergy 12-20-19 23 [facility] Repository (1 source) Eszopiclone Drug Allergy 09-21-19 24 Hallucinations [facility] Medications Current Medications Medication Drug Class(es) Dates Sig (Normalized) Sig (Original) amLODIPine 10 mg oral tablet (9 sources) Dihydropyridine Calcium Channel Jim Start: 01-04-2024 End: 04-03-2024 take 1 tablet by mouth once daily amLODIPine (Norvasc) 10 MG tablet Indications: Essential (primary) hypertension (CMS/HCC) Take 1 tablet (10 mg) by mouth Daily 90 tablet 1 01/04/2024 04/03/2024 Active Start: 11-17-2022 take 10 mg by mouth once daily Amlodipine Active 10 MG PO Daily November 16, 2022 11:00pm ascorbic acid 125 mg / iron carbonyl 65 mg oral tablet (4 sources) Vitamin C take 1 tablet by kenyatta th in the morning Iron-Vitamin C 65-125 MG tablet Take 60 mg by mouth in the morning and 60 mg in the evening. 0 Active Bariatric Multivitamins/Iron - (2 sources) Bariatric Multivitamins/Iron - as directed Orally Active biotin 5 mg oral tablet (7 sources) biotin 5 MG tabl et Pt taking OTC ([employer]) Active biotin 1 MG caps ule Biotin 0 Active take 1 tablet by [...] 2022 7:25pm Calcium Citrate / Vitamin D (5 sources) Calcium Citrate- Vitamin D (CITRACAL + D PO) Pt taking OTC ([employer]) Active Calcium Citrate- Vitamin D (CITRACAL + D PO) Citracal + D 0 Active cariprazine 4.5 mg oral capsule (9 sources) Atypical Antipsychotic Start: 09-21-2023 take 1 capsule by mouth once daily Cariprazine HCl (Vraylar) 4.5 MG capsule Take 4.5 mg by mouth Daily 09/21/2023 Active Start: 11-17-2022 take 1 capsule by [facility] once daily Cariprazine (Vraylar) 4.5 mg capsule Active 4.5 MG PO Daily November 16, 2022 11:00pm carvedilol 12.5 mg oral tablet (5 sources) alpha-Adrenergic Jim, beta-Adrenergic Jim Start: 01-04-2024 End: 04-03-2024 take 1 tablet by mouth in the morning carvedilol (Coreg) 12.5 MG tablet Indications: Essential (primary) hypertension (CMS/HCC) Take 1 tablet (12.5 mg) by mouth in the morning and 1 tablet (12.5 mg) in the evening. Take with meals. 180 tablet 1 01/04/2024 04/03/2024 Active Start: 04-29-2023 End: 05-29-2023 take 1 tablet by mouth in the morning carvedilol (Coreg) 3.125 MG tablet Indications: Essential (primary) hypertension (CMS/HCC) Take 1 tablet (3.125 mg) by mouth in the morning and 1 tablet (3.125 mg) before bedtime. 60 tablet 3 04/29/2023 05/29/2023 Active cephalexin 500 mg oral capsule (1 source) Cephalosporin Antibacterial Start: 05-21-2023 End: 05-31-2023 take 1 capsule by mouth in the morning cephalexin (Keflex) 500 MG capsule Indications: Acute cystitis with hematuria Take 1 capsule (500 mg) by mouth in the morning and 1 capsule (500 mg) before bedtime. Do all this for 10 days. 20 capsule 0 05/21/2023 05/31/2023 Active cetirizine hydrochloride 10 mg oral tablet (9 sources) Histamine-1 Receptor Antagonist Start: 01-04-2024 End: 04-03-2024 take 1 tablet by mouth once daily cetirizine (ZyrTEC) 10 MG tablet Indications: Allergic rhinitis, unspecified Take 1 tablet (10 mg) by mouth Daily 90 tablet 1 01/04/2024 04/03/2024 Active Start: 11-17-2022 take 10 mg by mouth once daily Cetirizine Active 10 MG PO Daily November 16, 2022 11:00pm clonazePAM 1 mg oral tablet (11 sources) Benzodiazepine Start: 12-13-2023 End: 01-12-2024 clonazePAM (KlonoPIN) 1 MG tablet Indications: Restless leg Take 1 tablet (1 mg) by mouth 2 (two) times a day as needed for anxiety Do not start before December 13, 2023. 60 tablet 12/13/2023 01/12/2024 Active Start: 11-17-2022 take 1 mg by mouth twice daily Clonazepam Active 1 MG PO Twice daily November 16, 2022 11:00pm Start: 05-27-2018 End: 11-17-2022 take 2 mg by mouth every twelve hours Clonazepam Discontinued 2 MG PO Q12H May 27, 2018 12:00am November 17, 2022 12:45am DULoxetine 60 mg delayed release oral capsule (11 sources) Serotonin and Norepinephrine Reuptake Inhibitor Start: [...] DAY Active fluconazole 150 mg oral tablet (11 sources) Azole Antifungal Start: 11-27-2023 fluconazole ( Diflucan) 150 MG tablet Indications: Yeast infection of the skin 1 pill every 3 days for a total of 3 doses 3 tablet 1 11/27/2023 Active Start: 05-18-2023 End: 05-18-2023 fluconazole (Diflucan) 150 M G tablet Indications: Yeast infection of the skin [...] propionate 0.05 mg/actuat metered dose nasal spray (9 sources) Corticosteroid Start: 01-04-2024 End: 02-03-2024 take 2 spray(s) nasal route once daily fluticasone (Flonase) 50 MCG/ACT nasal spray Indications: Allergic rhinitis, unspecified Administer 2 sprays into each nostril Daily 48 g 1 01/04/2024 02/03/2024 Active Start: 11-17-2022 Fluticasone Pr opionate Active 2 SPRAY INTRANASAL Daily November 16, 2022 11:00pm fluticasone (Johnathan nase) 50 MCG/ACT nasal spray 2 sprays. 0 Active Flonase Active furosemide 20 mg oral tablet (4 sources) Loop Diuretic take 1 tablet by mouth in the morning furosemide (Lasix) 20 MG tablet Take 20 mg by mouth in the morning. 0 Active gabapentin 300 mg oral capsule (15 sources) Anti-epileptic Agent Start: 10-14-2023 End: 01-12-2024 take 1 capsule by mouth in the morning gabapentin (Neurontin) 300 MG capsule Indications: Restless leg Take 1 capsule (300 mg) by mouth in the morning and 1 capsule (300 mg) before bedtime. 60 capsule 2 10/14/2023 01/12/2024 Active Start: 05-28-2018 End: 11-17-2022 take 1200 mg by mouth at bedtime Gabapentin Active 120 0 MG PO Bedtime November 16, 2022 11:00pm [...] Active losartan potassium 100 mg oral tablet (9 sources) Angiotensin 2 Receptor Jim Start: 4 End: 4 take 1 tablet by mouth once daily losartan (Cozaar) 100 MG tablet Indications: Essential (primary) hypertension (CMS/HCC) Take 1 tablet (100 mg) by mouth Daily 90 tablet 1 01/04/2024 04/03/2024 Active Start: 11-17-2022 take 100 mg by mouth once lissett y Losartan Active 100 MG PO Daily November 16, 2022 11:00pm Magnesium (7 sources) Magnesium 400 MG capsule Pt taking OTC([employer]) Active Magnesium 400 MG capsule magnesium 0 Active take 1 tablet by mouth once lissett y Magnesium 400 MG 1 tablet with a meal Orally Once a day Active melatonin 10 mg oral tablet (4 sources) Start: 03-23-2023 take 20 mg by mouth at bedtime Melatonin Active 20 MG PO Bedtime March 23, 2023 12:00am take 1 tablet by mouth at bedtim e Melatonin 12 MG tablet Indications: from [employer] Take 1 tablet by mouth at bedtime Active take 2 tablets by mo uth once daily at bedtime Melatonin 10 MG 2 TABLETS Orally QHS Act hemant Melatonin 12 MG tablet dispe rsible (4 sources) Melatonin 12 MG tablet dispersible 1 (one) time each day at the same time. 0 Active Multiple Vitamins-Minerals ( BARIATRIC MULTIVITAMINS/IRON PO) (5 sources) Multiple Vitamin s-Minerals (BARIATRIC MULTIVITAMINS/IRON PO) Pt taking OTC ([employer]) Active Multiple Vitamin s-Minerals (BARIATRIC MULTIVITAMINS/IRON PO) Bariatric Multivitamins/Iron 0 Active Dhmrfmfiewzq-Cya-Wwke-Fa-Vit K (Bariatric Multivitamins) 45 mg iron- 800 mcg-120 mcg Capsule (2 sources) Start: 11-17-2022 take 1 capsule by mouth once daily Omnpwtjgyaej-Vbm-Lbyx-Fa-Vit K (Bariatric Multivitamins) 45 mg iron- 800 mcg-120 mcg Capsule Active 1 CAP PO Daily November 16, 2022 11:00pm Start: 11-17-2022 take 1 capsule by mo ut once daily Gtzelsqsklgu-Wdd-Rcmj-Fa-Vit K (Bariatri c Multivitamins) 45 mg iron- 800 mcg-120 mcg Capsule Active 1 CAP PO Daily November 17, 2022 12:00am nystatin 100 unt/mg topical powder (5 sources) Polyene Antifungal nystatin (Myc ostatin) 855145 UNIT/GM powder Apply 1 application topically in the morning and 1 application before bedtime. Active OLANZapine 5 mg oral tablet (6 [...] omeprazole 20 mg delayed release oral capsule (9 sources) Proton Pump Inhibitor Start: 10-05-2023 take 1 capsule by mouth before mealtime omeprazole (PriLOSEC) [address] capsule Indications: Gastro-esophageal reflux disease without esophagitis Take 1 capsule (20 mg) by mouth in the morning. Take before meals. 90 capsule 1 10/05/2023 Active Start: 11-17-2022 take 20 mg by mouth once daily Omeprazole Active 20 MG PO Daily November 16, 2022 11:00pm rOPINIRole 4 mg oral tablet (9 sources) Nonergot Dopamine Agonist Start: 10-14-2023 take 1 tablet by mouth at bedtime rOPINIRole (Requip) 4 MG tablet Indications: Restless leg Take 1 tablet (4 mg) by mouth at bedtime 30 tablet 3 10/14/2023 Active Start: 11-17-2022 take 4 mg by mouth once daily Ropinirole Active 4 MG PO Daily November 16, 2022 11:00pm Start: 06-02-2022 take 1 tablet by kenyatta th every two hours in the evening rOPINIRole (Requip) 4 MG tablet Take 4 mg by mouth in the evening. Take 2 hours prior to bedtime. 0 06/02/2022 Active spironolactone 25 mg oral tablet (1 source) Aldosterone Antagonist Start: 12-30-2023 End: 01-29-2024 take 2 tablets by mouth once daily spironolactone (Aldactone) 25 MG tablet Indications: Lower extremity edema Take 2 tablets (50 mg) by mouth Daily 60 tablet 2 12/30/2023 01/29/2024 Active tiZANidine 4 mg oral tablet (9 sources) Central alpha-2 Adrenergic Agonist Start: 12-12-2023 take 1 tablet by mouth every eight hours as needed tiZANidine (Zanaflex) 4 MG tablet Take 4 mg by mouth every 8 (eight) hours if needed for muscle spasms 1-2 tablets 12/12/2023 Active Start: 11-17-2022 Tizanidine Act hemant 2 MG PO ,[id number] 16, 2022 11:00pm Start: 11-17-2022 take 8 mg by mouth at bedtime Tizanidine Active 8 MG PO Bedtime November 16, 2022 11:00pm take 1 tablet by kenyatta th in the morning tiZANidine (Zanaflex) 4 MG tablet Take 4 mg by mouth in the morning. 0 Active traZODone hydrochloride 150 mg oral tablet (11 sources) Serotonin Reuptake Inhibitor Start: 11-17-2022 take [...] Problem Classification Problem Date Documented Date Episodic/Chronic Acute cerebrovascular disease (5 sources) Cerebrovascular accident; Translations: [Cerebral infarction, unspecified] Onset: 04-06-19 18 05-18-2023 Chronic Allergic reactions (4 sources) Unspecified contact dermatitis, unspecified cause; Translations: [Allergic condition] Onset: 09-14-19 22 11-18-2022 Episodic Anxiety disorders (12 sources) Post-traumatic stress disorder, unspecified; Translations: [Anxiety disorder, unspecified] Onset: 04-29-19 23 05-18-2023 Chronic Cardiac and circulatory congenital anomalies (7 sources) Cerebrovascular disease; Translations: [Other malformations of cerebral vessels] Onset: 05-18-19 24 05-18-2023 Chronic Diabetes mellitus without complication (2 sources) Diabetes mellitus; Translations: [Type 2 diabetes mellitus without complications] 05-31-2018 Chronic Disorders of lipid metabolism (1 source) Pure hypercholesterolemia, unspecified; Translations: [PURE HYPERCHOLESTEROLEMIA UNSPEC] Onset: 07-17-19 Chronic Esophageal disorders (8 sources) Gastro-esophageal reflux disease without esophagitis; Translations: [Gastroesophageal reflux disease] Onset: 07-17-1905-18-2023 Chronic Essential hypertension (15 sources) Essential (primary) hypertension; Translations: [Hypertensive disorder] Onset: 07-17-19 Chronic Mood disorders (20 sources) Bipolar disorder, current episode depressed, severe, without psychotic features; Translations: [Unspecified mood [affective] disorder] Onset: 11-23-19 22 11-17-2022 Chronic Osteoarthritis (6 sources) Primary osteoarthritis, right ankle and foot; Translations: [Osteoarthritis of knee] Onset: 10-03-19 18 03-25-2023 Chronic Osteoporosis (5 sources) Osteoporosis; Translations: [Age-related osteoporosis without current pathological fracture] Onset: 05-18-19 24 05-18-2023 Chronic Other and ill-defined heart disease (5 sources) Diastolic dysfunction; Translations: [Other ill-defined heart diseases] Onset: 05-18-19 24 05-18-2023 Chronic Other connective tissue disease (1 source) Fibromyalgia; Translations: [FIBROMYALGIA] Onset: 07-17-19 Episodic Other connective tissue disease (4 sources) Radial styloid tenosynovitis [de Quervain]; Translations: [RADIAL STYLOID TENOSYNOVITIS] Onset: 06-12-19 Episodic Other connective tissue disease (2 sources) Weakness of face muscles; Translations: [Facial weakness] 11-18-2022 Episodic Other connective tissue disease (1 source) Tendinitis of right forearm; Translations: [Other enthesopathies, not elsewhere classified] Onset: 10-11-19 24 10-11-2023 Episodic Other connective tissue disease (1 source) Other symptoms and signs involving the musculoskeletal system; Translations: [Other musculoskeletal symptoms referable to limbs] Onset: 10-11-19 24 10-11-2023 Episodic Other diseases of bladder and urethra (7 sources) Overactive bladder; Translations: [Overactive bladder] Onset: 05-18-19 24 05-18-2023 Chronic Other gastrointestinal disorders (1 source) Bariatric surgery status; Translations: [BARIATRIC SURGERY STATUS] Onset: 08-01-19 Episodic Other hereditary and degenerative nervous system conditions (7 sources) Restless legs; Translations: [Restless legs syndrome] [...] Onset: 04-03-20 Chronic Other nervous system disorders (7 sources) Chronic pain syndrome; Translations: [Chronic pain syndrome] Onset: 05-18-19 24 05-18-2023 Chronic Other nervous system disorders (1 source) Metabolic encephalopathy; Translations: [Metabolic encephalopathy] Onset: 08-26-1912-08-2023 Chronic Other nervous system disorders (1 source) Lesion of brain; Translations: [Disorder of brain, unspecified] Onset: 10-11-19 24 10-11-2023 Chronic Other nervous system disorders (1 source) Carpal tunnel syndrome of right wrist; Translations: [Carpal tunnel syndrome, right upper limb] Onset: 10-11-19 24 10-11-2023 Chronic Other nervous system disorders (1 source) Disorder of brain; 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] Onset: 10-11-19 24 10-11-2023 Chronic Other non-traumatic joint disorders (4 sources) [...] Chronic Other nutritional; endocrine; and metabolic disorders (7 sources) Morbid obesity; Translations: [Morbid (severe) obesity due to excess calories] Onset: 03-25-2003-25-2023 Chronic Other upper respiratory disease (5 sources) Allergic rhinitis; Translations: [Allergic rhinitis, unspecified] Onset: 05-18-1905-18-2023 Chronic Paralysis (5 sources) Right hemiparesis; Translations: [Hemiplegia, unspecified affecting right dominant side] Onset: 05-18-1905-18-2023 Chronic Residual codes; unclassified (1 source) Sleep apnea, unspecified; Translations: [SLEEP APNEA UNSPECIFIED] Onset: 07-17-19 Chronic Residual codes; unclassified (9 sources) Obstructive sleep apnea syndrome; Translations: [Obstructive sleep apnea (adult) (pediatric)] Onset: 05-18-1911-18-2022 Chronic Residual codes; unclassified (1 source) Obstructive sleep apnea (adult) (pediatric); Translations: [Obstructive sleep apnea (adult)(pediatric)] 11-20-2022 Chronic Spondylosis; intervertebral disc disorders; other back problems (20 sources) Spondylosis without myelopathy or radiculopathy, lumbosacral region; Translations: [Spondylosis without myelopathy or radiculopathy, lumbar region] Onset: 08-24-19 Chronic Spondylosis; intervertebral disc disorders; other back problems (3 sources) Sacrococcygeal disorders, not elsewhere classified; Translations: [Chronic back pain ] Onset: 08-24-1911-20-2022 Episodic Substance-related disorders (7 sources) Tobacco dependence syndrome; Translations: [Nicotine dependence, unspecified, uncomplicated] Onset: 05-18-1905-18-2023 Chronic Unclassified (3 sources) LOW BACK PAIN, UNSPECIFIED; Translations: [LOW BACK PAIN, UNSPECIFIED] Onset: 06-30-19 Unclassified (1 source) Encounter for screening for malignant neoplasm of colon; Translations: [Encounter for screening for malignant neoplasm of colon] Onset: 03-23-20 Past or Other Problems Problem Classification Problem Date Documented Da te Episodic/Chronic Abdominal hernia (5 sources) Hiatal hernia; Translations: [Diaphragmatic hernia without obstruction or gangrene] Onset: 05-18-2023 05-18-2023 Episodic Conditions associated with dizziness or vertigo (10 sources) Benign paroxysmal positional vertigo; Translations: [Benign paroxysmal vertigo, unspecified ear] Onset: 05-18-2023 05-18-2023 Episodic Deficiency and other anemia (5 sources) Anemia; Translations: [Anemia, unspecified] Onset: 05-18-2023 05-18-2023 Episodic Diabetes mellitus without complication (8 sources) Prediabetes; Translations: [Prediabetes] Onset: 07-31-2022 05-18-2023 Episodic E Codes: Cut/pierceb (1 source) Contact with scissors, initial encounter; Translations: [CONTACT WITH SCISSORS INITIAL ENC] Onset: 02-21-2022 Episodic Fracture of lower limb (5 sources) Closed fracture of patella; Translations: [Unspecified fracture of unspecified patella, initial encounter for closed fracture] Onset: 02-04-2018 Resolved: 10-21-2023 03-25-2023 Episodic Gout and other crystal arthropathies (6 sources) Gout, unspecified; Translations: [Gouty arthritis of right foot] Onset: 11-22-2021 Resolved: 08-17-2023 05-18-2023 Chronic Heart valve disorders (5 sources) Heart murmur; Translations: [Cardiac murmur, unspecified] Onset: 05-18-2023 05-18-2023 Episodic Hemorrhoids (5 sources) Hemorrhoids; Translations: [Unspecified hemorrhoids] Onset: 05-18-2023 05-18-2023 Episodic Immunizations and screening for infectious disease (1 source) Encounter for immunization; Translations: [ENCOUNTER FOR IMMUNIZATION] Onset: 02-21-2022 Episodic Influenza (1 source) Influenza; Translations: [Influenza due to unidentified influenza virus with other respiratory manifestations] Onset: 07-14-2023 Resolved: 10-21-2023 10-21-2023 Episodic Malaise and fatigue (7 sources) Asthenia; Translations: [Weakness] Onset: 05-18-2023 Resolved: 05-18-2023 05-31-2018 Episodic Mood disorders (5 sources) Mood disorders; Translations: [DEPRESSION UNSPECIFIED] Onset: 04-29-2022 05-18-2023 Mycoses (7 sources) Candidiasis of skin and nail; Translations: [Candidiasis of skin] Onset: 05-18-2023 Episodic Nonmalignant breast conditions (5 sources) Hematoma of right breast; Translations: [Other specified disorders of breast] Onset: 05-18-2023 Resolved: 05-18-2023 05-18-2023 Episodic Nutritional deficiencies (2 sources) Iron deficiency; Translations: [Vitamin deficiency] Onset: 07-31-2022 07-23-2023 Episodic Open wounds of extremities (4 sources) Laceration without foreign body of left middle finger without damage to nail, initial encounter; Translations: [LAC W/O FB LT MF W/O DMG NAIL INIT] Onset: 02-20-2022 Episodic Open wounds of head; neck; and trunk (6 sources) Open wound of anterior abdominal wall ; Translations: [Unspecified open wound of abdominal wall, unspecified quadrant without penetration into peritoneal cavity, initial encounter] Onset: 05-18-2023 Resolved: 10-21-2023 05-18-2023 Episodic Other aftercare (1 source) Other snf (current) drug therapy; Translations: [OTH SHELTER CURRENT DRUG THERAPY] Onset: 04-29-2022 Episodic Other and unspecified benign neoplasm (5 sources) Polyp of colon; Translations: [Polyp of colon] Onset: 05-18-2023 Resolved: 08-17-2023 05-18-2023 Episodic Other connective tissue disease (4 [...] Onset: 12-18-2021 Episodic Other connective tissue disease (5 sources) Pain in left foot; Translations: [Pain in left foot] Onset: 03-25-2023 Resolved: 08-17-2023 03-25-2023 Episodic Other connective tissue disease (5 sources) Patellar tendonitis; Translations: [Patellar tendinitis, unspecified knee] Onset: 11-20-2016 03-25-2023 Episodic Other connective tissue disease (5 sources) Radial styloid tenosynovitis; Translations: [Radial styloid tenosynovitis [de Quervain]] Onset: 05-18-2023 05-18-2023 Episodic Other connective tissue disease (5 sources) Fibromyalgia; Translations: [Fibromyalgia] Onset: 05-18-2023 05-18-2023 Episodic Other gastrointestinal disorders (5 sources) History of bariatric surgical procedure; Translations: [Bariatric surgery status] Onset: 05-18-2023 05-18-2023 Episodic Other gastrointestinal disorders (5 sources) Dysphagia; Translations: [Dysphagia, unspecified] Onset: 05-18-2023 05-18-2023 Episodic Other gastrointestinal disorders (5 sources) Constipation; Translations: [Constipation, unspecified] Onset: 05-18-2023 Resolved: 08-17-2023 05-18-2023 Episodic Other lower respiratory disease (1 source) Cough; Translations: [Acute cough] Onset: 07-14-2023 Resolved: 10-21-2023 10-21-2023 Episodic Other lower respiratory disease (1 source) Postviral cough; Translations: [Post-viral cough syndrome] Onset: 07-23-2023 Resolved: 10-21-2023 10-21-2023 Episodic Other nervous system disorders (5 sources) Slurred speech; Translations: [Slurred speech] Onset: 05-18-2023 05-18-2023 Episodic Other non-traumatic joint disorders (4 sources) Pain in left wrist; Translations: [PAIN IN LEFT WRIST] Onset: 04-28-2022 Episodic Other non-traumatic joint disorders (4 sources) Effusion, right ankle; Translations: [EFFUSION RIGHT ANKLE] Onset: 01-01-2022 Episodic Other non-traumatic joint disorders (3 sources) Pain in left elbow; Translations: [PAIN IN LEFT ELBOW] Onset: 12-16-2021 Episodic Other non-traumatic joint disorders (10 sources) Pain in right knee; Translations: [Pain in joint, lower leg] Onset: 11-20-2016 03-25-2023 Episodic Other non-traumatic joint disorders (6 sources) Hip pain; Translations: [Pain in left hip] Onset: 05-18-2023 05-18-2023 Episodic Other nutritional; endocrine; and metabolic disorders (5 sources) Excess panniculus of abdomen; Translations: [Localized adiposity] Onset: 03-25-2023 Resolved: 05-18-2023 05-18-2023 Chronic Other screening for suspected conditions (not mental disorders or infectious disease) (2 sources) Patient encounter status; Translations: [Encounter for screening mammogram for malignant neoplasm of breast] Onset: 07-23-2023 07-23-2023 Episodic Other skin disorders (4 sources) Rash and other nonspecific skin eruption; Translations: [RASH OTH NONSPECIFIC SKIN ERUPTION] Onset: 09-12-2021 Episodic Residual codes; unclassified (1 source) Acquired absence of other specified parts of digestive tract; Translations: [ACQ ABSENCE OTH PART DIGESTV TRACT] Onset: 04-29-2022 Episodic Residual codes; unclassified (4 sources) Localized edema; Translations: [LOCALIZED EDEMA] Onset: 03-19-2022 Episodic Residual codes; unclassified (7 sources) Edema of lower extremity; Translations: [Localized edema] Onset: 05-18-2023 Resolved: 10-05-2023 05-18-2023 Episodic Residual codes; unclassified (1 source) At risk of polypharmacy; Translations: [Other specified personal risk factors, not elsewhere classified] Onset: 08-26-2023 09-21-2023 Episodic Residual codes; unclassified (1 source) Bilateral lower limb edema; Translations: [Localized edema] Onset: 10-05-2023 10-05-2023 Episodic Respiratory failure; insufficiency; arrest (adult) (1 source) Acute respiratory failure; Translations: [Acute respiratory failure, unspecified whether with hypoxia or hypercapnia] Onset: 08-26-2023 09-21-2023 Episodic Screening and history of mental health and substance abuse codes (2 sources) Personal history of nicotine dependence; Translations: [Ex-cigarette smoker] Onset: 07-16-2022 08-19-2023 Episodic Unclassified (1 source) LOW BACK PAIN, UNSPECIFIED; Translations: [LOW BACK PAIN, UNSPECIFIED] Onset: 06-26-2022 Urinary tract infections (5 sources) Urinary tract infectious disease; Translations: [Urinary tract infection, site not specified] Onset: 05-21-2023 Resolved: 10-21-2023 11-18-2022 Episodic Viral infection (5 sources) Herpes zoster; Translations: [Zoster without complications] Onset: 05-18-2023 Resolved: 05-18-2023 05-18-2023 Episodic Results Test Name Value Interpretation Reference Range Facility ALL BASIC METABOLIC PANELon 01-05-2024 Anion gap [Moles/Vol] 11.1 mmol/L [facility] Calcium [Mass/Vol] 9.2 mg/dL 8.5 - 10. 1 mg/dL [facility] Chloride [Moles/Vol] 105 mmol/L 98 - 10 7 mmol/L [facility] CO2 [Moles/Vol] 28.0 mmol/L 21.0 - 32.0 mmol/L [facility] Creatinine [Mass/Vol] 1.08 mg/dL High 0.55 - 1.02 mg/dL [facility] GFR/1.73 sq M.predicted CKD-EPI (S/P/Bld) [Vol rate/Area] >60 60 - PINF [facility] Glucose [Mass/Vol] 92 mg/dL 74 - 106 mg/dL [facility] Interpretation and review of laboratory results Abnormal [facility] Potassium [Moles/Vol] 4.1 mmol/L 3.5 - 5.1 mmol/L [facility] Sodium [Moles/Vol] 140 mmol/L 136 - 145 mmol/L [facility] TBH EGFR-NON AF QATARI 51 Low 60 - PINF [facility] Urea nitrogen [Mass/Vol] 17.0 mg/dL 7.0 - 18.0 mg/dL [facility] Urea nitrogen/Creatinine [Mass ratio] 15.7 mg/mg [facility] Amphetamine Screen Ql (U)Ord ered By: Jace Graham on 03-23-2023 Amphetamines Ql (U) Negative Negative [facility] Barbiturates [Presence] in U rine by Screen methodOrdered By: Jace Graham on 03-23-2023 Barbiturates Screen Ql (U) Negative Negative [facility] Benzodiazepines Screen Ql (U )Ordered By: Jace Graham on 03-23-2023 Benzodiazepines Ql (U) Negative Negative [facility] Benzoylecgonine [Presence] i n Urine by Screen methodOrdered By: Jace Graham on 03-23-2023 Benzoylecgonine Screen Ql (U) Negative Negative [facility] Cannabinoids [Presence] in U rine by Screen methodOrdered By: Jace Graham on 03-23-2023 Cannabinoids Screen Ql (U) Negative Negative [facility] Comment on above: These are unconfirme d results and should not be used for legal purposes. Drug Cut-Off Concentration: AMPH 1000 ng/mL ELKIN 200 ng/mL ATIYA 200 ng/mL COCM 300 ng/mL OP 300 ng/mL PCP 25 ng/mL THC 20 ng/mL Drug Screen,Urineon 03-23-20 23 Amphetamine Screen,Urine Negative Normal Negative [facility] Comment on above: Performed By: #### U RDS #### [address] Barbiturate Screen,Urine Negative Normal Negative [facility] Comment on above: Performed By: #### U RDS #### [place] [address] [place] Benzodiazepines Screen,Urine Negative Normal Negative [facility] Comment on above: Performed By: #### U RDS #### [place] [address] [place] Cannabinoid Screen,Urine Negative Normal Negative [facility] Comment on above: Result Comment: Thes e are unconfirmed results and should not be used for legal purposes. Drug Cut-Off Concentration: AMPH 1000 ng/mL ELKIN 200 ng/mL ATIYA 200 ng/mL COCM 300 ng/mL OP 300 ng/mL PCP 25 ng/mL THC 20 ng/mL PERFORMED BY: [place] [address] PATHOLOGIST TEMPERATURE CONTROL INSPECTOR AN CURRY M.D. Performed By: #### U RDS #### [place] [address] [place] Cocaine Screen,Urine Negative Normal Negative [facility] Comment on above: Performed By: #### U RDS #### [facility] [address] Opiate Screen,Urine Negative Normal Negative [facility] Comment on above: Performed By: #### U RDS #### [facility] [address] Phencyclidine Screen,Urine Negative Normal Negative [facility] Comment on above: Performed By: #### U RDS #### [facility] [id number] [facility] Opiates [Presence] in Urine by Screen methodOrdered By: Jace Graham on 03-23-2023 Opiates Screen Ql (U) Negative Negative [facility] Phencyclidine Screen Ql (U)O rdered By: Jace Graham on 03-23-2023 Phencyclidine Ql (U) Negative Negative [facility] Cholesterol [Mass/volume] in Serum or PlasmaOrdered By: Eduardo Monk on 11-18-2022 Cholesterol [Mass/Vol] 159 mg/dL 140-200 [facility] Comment on above: Chol less than 200 m g/dl low riskChol 201-239 mg/dl borderline riskChol 240 mg/dl and greater high risk Cholesterol in LDL Calc [Mas s/Vol]Ordered By: Eduardo Monk on 11-18-2022 Cholesterol in LDL [Mass/Vol] 84 mg/dL 0-100 [facility] Comment on above: LDL ATP III CLASSIFI CATIONLDL less than 100 mg/dL OptimalLDL 100-129 mg/dL Near or above optimalLDL 130-159 mg/dL Borderline highLDL 160-189 mg/dL HighLDL greater than 189 mg/dL Very high Cholesterol in VLDL Calc [Ma ss/Vol]Ordered By: Eduardo Monk on 11-18-2022 Cholesterol in VLDL [Mass/Vol] 28 mg/dL [facility] Serum or plasma high density lipoprotein (HDL) cholesterol measurementOrdered By: Eduardo Monk on 11-18-2022 Cholesterol in HDL [Mass/Vol] 46 mg/dL 23-92 [facility] Comment on above: HDL CHOL ATP-III CLA SSIFICATION Cardiovascular RiskHDL > or equal to 60 mg/dL LOWHDL < 40 mg/dL HIGH Serum or plasma total choles terol/high density lipoprotein (HDL) cholesterol mass ratOrdered By: Eduardo Monk on 11-18-2022 Cholesterol.total/Chol esterol in HDL [Mass ratio] 3.5 {ratio} <5.0 [facility] Thyrotropin [Units/volume] i n Serum or PlasmaOrdered By: Eduardo Monk on 11-18-2022 TSH Qn 2.13 m[IU]/L 0.45-5.33 [facility] Triglyceride [Mass/volume] i n Serum or PlasmaOrdered By: Eduardo Monk on 11-18-2022 Triglyceride [Mass/Vol] 144 mg/dL 0-149 [facility] Comment on above: TRIG ATP III CLASSIF ICATIONTRIG less than 150 mg/dL NormalTRIG 150-199 mg/dL Borderline highTRIG 200-500 mg/dL High TRIG greater than 500 mg/dL Very highStandard traceable to the Center for Disease Conrtrol and Prevention (CDC) test method. Vitamin D+Metabolites [Mass/ volume] in Serum or PlasmaOrdered By: Eduardo Monk on 11-18-2022 Vitamin D+Metabolites [Mass/Vol] 50.4 ng/mL 30-100 [facility] Comment on above: VITAMIN D STATUS 25( [place])VITAMIN D RANGE (ng/mL) Deficient <20 Insufficient 20 to <30Sufficient 30 to 100Reference: Bin MF,Lkashmi NC, Cristian SMART, et al. Evaluation,treatment, and prevention of vitamin D deficiency; an Endocrine Society clinical practice guideline. JCEM. 2010; 96(7):1911-30. CBC AUTO DIFFon 07-25-2022 BASO # 0.1 103/ul Normal 0.0-0.1 [facility] Comment on above: Performed By: #### A 1C #### [facility] [address] [address] [address] Bebeto Alvarado Basophils/100 WBC (Bld) 0.6 % Normal 0.2-2.0 [facility] Comment on above: Performed By: #### A 1C #### [facility] [address] [place] [address] Dr. Bebeto Alvarado EO # 0.2 103/ul Normal 0.0-0.7 [facility] Comment on above: Performed By: #### A 1C #### [facility] [address] [place] [address] Dr. Bebeto Alvarado Eosinophils/100 WBC (Bld) 2.3 % Normal 0.9-7.0 [facility] Comment on above: Performed By: #### A 1C #### [facility] [address] [place] [address] Dr. Bebeto Alvarado Erythrocyte distribution width (RBC) [Ratio] 13.8 % Normal 11.0-15.0 [facility] Comment on above: Performed By: #### A 1C #### [facility] [address] [place] [address] Dr. Bebeto Alvarado Hematocrit (Bld) [Volume fraction] 41.2 % Normal 36.0-48.0 [facility] Comment on above: Performed By: #### A 1C #### [facility] [address] [place] [address] Dr. Bebeto Alvarado Hemoglobin (Bld) [Mass/Vol] 13.2 g/dL Normal 12.0-16.0 [facility] Comment on above: Performed By: #### A 1C #### [facility] [address] [place] [address] Dr. Bebeto Alvarado IG # 0.03 10e3/ul Normal 0.00-0.03 [facility] Comment on above: Performed By: #### A 1C #### [facility] [address] [place] [address] Dr. Bebeto Alvarado IG % 0.4 % Normal 0.0-0.5 [facility] Comment on above: Performed By: #### A 1C #### [facility] [address] [place] [address] Dr. Bebeto Alvarado LYMPH # 2.1 103/ul Normal 1.2-3.8 [facility] Comment on above: Performed By: #### A 1C #### [facility] [address] [place] [address] Dr. Bebeto Alvarado Lymphocytes/100 WBC (Bld) 25.9 % Normal 20.5-60.0 [facility] Comment on above: Performed By: #### A 1C #### [facility] [address] [place] [address] Dr. Bebeto Alvarado MANUAL DIFF REQ NO Normal [facility] Comment on above: Performed By: #### A 1C #### [facility] [address] [place] [address] Dr. Bebeto Alvarado MCH (RBC) [Entitic mass] 28.0 pg Normal 26.7-34.0 [facility] Comment on above: Performed By: #### A 1C #### [facility] [address] [place] [address] Dr. Bebeto Alvarado MCHC (RBC) [Mass/Vol] 32.0 g/dL Normal 29.9-35.2 [facility] Comment on above: Performed By: #### A 1C #### [facility] [address] [place] [address] Dr. Bebeto Alvarado MCV (RBC) [Entitic vol] 87.5 fL Normal 81.0-99.0 [facility] Comment on above: Performed By: #### A 1C #### [facility] [address] [place] [address] Dr. Bebeto Alvarado MONO # 0.5 103/ul Normal 0.3-0.8 [facility] Comment on above: Performed By: #### A 1C #### [facility] [address] [place] [address] Dr. Bebeto Alvarado Monocytes/100 WBC (Bld) 6.6 % Normal 1.7-12.0 [facility] Comment on above: Performed By: #### A 1C #### [facility] [address] [place] [address] Dr. Bebeto Alvarado NEUT # 5.1 103/ul Normal 1.4-6.5 [facility] Comment on above: Performed By: #### A 1C #### [facility] [address] [address] [address] Bebeto Alvarado Neutrophils/100 WBC (Bld) 64.2 % Normal 43.0-75.0 [facility] Comment on above: Performed By: #### A 1C #### [facility] [address] [address] [address] Bbeeto Alvarado Platelet mean volume (Bld) [Entitic vol] 11.2 fL Normal 9.5-13.5 [facility] Comment on above: Performed By: #### A 1C #### [facility] [address] [place] [address] Dr. Bebeto Alvarado PLT 252 103/ul Normal 150-450 [facility] Comment on above: Performed By: #### A 1C #### [facility] [address] [place] [address] Dr. Bebeto Alvarado RBC 4.71 106/ul Normal 4.20-5.40 [facility] Comment on above: Performed By: #### A 1C #### [facility] [address] [place] [address] Dr. Bebeto Alvarado WBC 8.0 103/ul Normal 4.0-11.0 [facility] Comment on above: Performed By: #### A 1C #### [facility] [address] [place] [address] Dr. Bebeto Alvarado GLYCOHEMOGLOBIN A1Con 2022 ADA RECOMMENDATION SEE BELOW Normal [facility] Comment on above: Result Comment: ADA RECOMMENDED LIMIT 4.0 - 6.0 ADA THERAPEUTIC TARGET < 7.0 ACTION SUGGESTED > 7.0 Performed By: #### A 1C #### [facility] [address] [place] [address] Dr. Bebeot Alvarado Glucose [Mass/Vol] 114 mg/dL Normal [facility] Comment on above: Performed By: #### A 1C #### [facility] [address] [place] [address] Dr. Bebeto Alvarado HbA1c (Bld) [Mass fraction] 5.6 % Normal 4.5-6.2 [facility] Comment on above: Performed By: #### A 1C #### [facility] [address] [address] [address] Bebeto Alvarado IRONon 07-25-2022 Iron [Mass/Vol] 60.0 ug/dL Normal 50.0-170.[address] [facility] Comment on above: Performed By: #### V ITB12, IRON #### [facility] [address] [address] [address] Bebeto Alvarado LIPID PROFILEon 07-25-2022 CHOL-HDL RATIO NORM SEE BELOW Normal [facility] Comment on above: Result Comment: 3.3 - 4.4 LOW RISK 4.4 - 7.1 AVERAGE RISK 7.1 - 11.0 MODERATE RISK >11.0 HIGH RISK Performed By: #### C MP, LIPID #### [facility] [address] [place] [address] Dr. Bebeto Alvarado Cholesterol [Mass/Vol] 144 mg/dL Normal <=200 [facility] Comment on above: Performed By: #### C MP, LIPID #### [facility] [address] [place] [address] Dr. Bebeto Alvarado Cholesterol in HDL [Mass/Vol] 39 mg/dL Critically low 40-60 [facility] Comment on above: Performed By: #### C MP, LIPID #### [facility] [address] [place] [address] Dr. Bebeto Alvarado Cholesterol in LDL [Mass/Vol] 74.6 mg/dL Normal [facility] Comment on above: Performed By: #### C MP, LIPID #### [facility] [address] [place] [address] Dr. Bebeto Alvarado Cholesterol.total/Chol esterol in HDL [Mass ratio] 3.7 {ratio} Normal [facility] Comment on above: Performed By: #### C MP, LIPID #### [facility] [address] [place] [address] Dr. Bebeto Alvarado HDL NORMAL > or = 60 mg/dl - LO W CARDIOVASCULAR RISK <40 mg/dl - HIGH CARDIOVASCULAR RISK Normal [facility] Comment on above: Performed By: #### C MP, LIPID #### [facility] [address] [address] [address] Bebeto Alvarado LDL CALC NORMAL SEE BELOW Normal [facility] Comment on above: Result Comment: <100 mg/dl OPTIMAL 100 - 129 mg/dl NEAR OR ABOVE OPTIMAL 130 - 159 mg/dl BORDERLINE HIGH 160 - 189 mg/dl HIGH >190 mg/dl VERY HIGH Performed By: #### C MP, LIPID #### [facility] [address] [place] [address] Dr. Bebeto Alvarado Triglyceride [Mass/Vol] 152 mg/dL Critically high <=150 [facility] Comment on above: Performed By: #### C MP, LIPID #### [facility] [address] [place] [address] Dr. Bebeto Alvarado VLDL CALC 30.4 mg/dL Normal [facility] Comment on above: Performed By: #### C MP, LIPID #### [facility] [address] [place] [address] Dr. Bebeto Alvarado PROF 14(COMP METB)on 023 Albumin [Mass/Vol] 3.7 g/dL Normal 3.4-5.0 [facility] Comment on above: Performed By: #### C MP, LIPID #### [facility] [address] [place] [address] Dr. Bebeto Alvarado Albumin/Globulin [Mass ratio] 0.9 {ratio} Normal [facility] Comment on above: Performed By: #### C MP, LIPID #### [facility] [address] [place] [address] Dr. Bebeto Alvarado ALP [Catalytic activity/Vol] 90 U/L Normal 46-116 [facility] Comment on above: Performed By: #### C MP, LIPID #### [facility] [address] [place] [address] Dr. Bebeto Alvarado ALT [Catalytic activity/Vol] 38 U/L Normal 14-59 [facility] Comment on above: Performed By: #### C MP, LIPID #### [facility] [address] [place] [address] Dr. Bebeto Alvarado Anion gap [Moles/Vol] 12.1 mmol/L Normal [facility] Comment on above: Performed By: #### C MP, LIPID #### [facility] [address] [address] [address] Bebeto Alvarado AST [Catalytic activity/Vol] 26 U/L Normal 15-37 [facility] Comment on above: Performed By: #### C MP, LIPID #### [facility] [address] [address] [address] Bebeto Alvarado Bilirubin [Mass/Vol] 0.3 mg/dL Normal 0.2-1.0 [facility] Comment on above: Performed By: #### C MP, LIPID #### [facility] [address] [address] [address] Bebeto Alvarado Calcium [Mass/Vol] 9.3 mg/dL Normal 8.5-10.1 [facility] Comment on above: Performed By: #### C MP, LIPID #### [facility] [address] [place] [address] Dr. Bebeto Alvarado Chloride [Moles/Vol] 107 mmol/L Normal 98-107 [facility] Comment on above: Performed By: #### C MP, LIPID #### [facility] [address] [place] [address] Dr. Bebeto Alvarado CO2 [Moles/Vol] 27.9 mmol/L Normal 21.0-32.[address] [facility] Comment on above: Performed By: #### C MP, LIPID #### [facility] [address] [place] [address] Dr. Bebeto Alvarado Creatinine [Mass/Vol] 0.95 mg/dL Normal 0.55-1.02 [facility] Comment on above: Performed By: #### C MP, LIPID #### [facility] [address] [place] [address] Dr. Bebeto Alvarado EGFR-AF QATARI >60 Normal >=[address] [facility] Comment on above: Performed By: #### C MP, LIPID #### [facility] [address] [place] [address] Dr. Bebeto Alvarado EGFR-NON AF QATARI 60 mL/min/1.73m2 Normal >=60 [facility] Comment on above: Performed By: #### C MP, LIPID #### [facility] [address] [place] [address] Dr. Bebeto Alvarado Globulin (S) [Mass/Vol] 3.9 g/dL Normal [facility] Comment on above: Performed By: #### C MP, LIPID #### [facility] [address] [place] [address] Dr. Bebeto Alvarado Glucose [Mass/Vol] 108 mg/dL Critically high 74-106 [facility] Comment on above: Performed By: #### C MP, LIPID #### [facility] [address] [place] [address] Dr. Bebeto Alvarado Potassium [Moles/Vol] 4.0 mmol/L Normal 3.5-5.1 [facility] Comment on above: Performed By: #### C MP, LIPID #### [facility] [address] [place] [address] Dr. Bebeto Alvarado Protein [Mass/Vol] 7.6 g/dL Normal 6.4-8.2 [facility] Comment on above: Performed By: #### C MP, LIPID #### [facility] [address] [place] [address] Dr. Bebeto Alvarado Sodium [Moles/Vol] 143 mmol/L Normal 136-145 [facility] Comment on above: Performed By: #### C MP, LIPID #### [facility] [address] [place] [address] Dr. Bebeto Alvarado Urea nitrogen [Mass/Vol] 15.0 mg/dL Normal 7.0-18.0 [facility] Comment on above: Performed By: #### C MP, LIPID #### [facility] [address] [place] [address] Dr. Bebeto Alvarado Urea nitrogen/Creatinine [Mass ratio] 15.8 mg/mg Normal [facility] Comment on above: Performed By: #### C MP, LIPID #### [facility] [address] [place] [address] Dr. Bebeto Alvarado UA RANDOM W/MICROSCOPICon BACTERIA NONE SEEN Normal NONE SEEN [facility] Comment on above: Performed By: #### A 1C #### [facility] [address] [place] [address] Dr. Bebeto Alvarado Bilirubin Ql (U) Negative Normal NEGATIVE [facility] Comment on above: Performed By: #### A 1C #### [facility] [address] [place] [address] Dr. Bebeto Alvarado CAST NONE SEEN Normal NONE SEEN [facility] Comment on above: Performed By: #### A 1C #### [facility] [address] [place] [address] Dr. Bebeto Alvarado Clarity (U) CLEAR Normal CLEAR [facility] Comment on above: Performed By: #### A 1C #### [facility] [address] [place] [address] Dr. Bebeto Alvarado Color (U) YELLOW Normal YELLOW [facility] Comment on above: Performed By: #### A 1C #### [facility] [address] [place] [address] Dr. Bebeto Alvarado Crystals LM Nom (Urine sed) NONE SEEN Normal NONE SEEN [facility] Comment on above: Performed By: #### A 1C #### [facility] [address] [place] [address] Dr. Bebeto Alvarado Epithelial cells LM Ql (Urine sed) NONE SEEN Normal NONE SEEN /RARE [facility] Comment on above: Performed By: #### A 1C #### [facility] [address] [place] [address] Dr. Bebeto Alvarado Glucose Ql (U) Negative Normal NEGATIVE [facility] Comment on above: Performed By: #### A 1C #### [facility] [address] [place] [address] Dr. Bebeto Alvarado Hemoglobin Ql (U) Negative Normal NEGATIVE [facility] Comment on above: Performed By: #### A 1C #### [facility] [address] [place] [address] Dr. Bebeto Alvarado Ketones Ql (U) Negative Normal NEGATIVE [facility] Comment on above: Performed By: #### A 1C #### [facility] [address] [place] [address] Dr. Bebeto Alvarado LEUKOCYTES Negative Normal NEGATIVE [facility] Comment on above: Performed By: #### A 1C #### [facility] [address] [place] [address] Dr. Bebeto Alvarado MUCOUS NONE SEEN Normal NONE SEEN [facility] Comment on above: Performed By: #### A 1C #### [facility] [address] [place] [address] Dr. Bebeto Alvarado Nitrite Ql (U) Negative Normal NEGATIVE [facility] Comment on above: Performed By: #### A 1C #### [facility] [address] [place] [address] Dr. Bebeto Alvarado pH (U) 5.5 [pH] Normal 5-9 [facility] Comment on above: Performed By: #### A 1C #### [facility] [address] [place] [address] Dr. Bebeto Alvarado RBC NONE SEEN Abnormal 0-2 [facility] Comment on above: Performed By: #### A 1C #### [facility] [address] [place] [address] Dr. Bebeto Alvarado SPEC GRAVITY 1.030 Abnormal 1.005-<=1.02 5 [facility] Comment on above: Performed By: #### A 1C #### [facility] [address] [place] [address] Dr. Bebeto Alvarado UA PROTEIN Negative Normal NEGATIVE/ TRACE [facility] Comment on above: Performed By: #### A 1C #### [facility] [address] [place] [address] Dr. Bebeto Alvarado Urobilinogen Qn (U) 0.2 {Katerin'U}/dL Normal 0.2 - 1. 0 [facility] Comment on above: Performed By: #### A 1C #### [facility] [address] [place] [address] Dr. Bebeto Alvarado WBC NONE SEEN Normal NONE SEEN [facility] Comment on above: Performed By: #### A 1C #### [facility] [address] [place] [address] Dr. Bebeto lAvarado VITAMIN B12on 07-25-2022 Cobalamin (Vitamin B12) [Mass/Vol] 1684.0 pg/mL Critically high 193.0-986.0 [facility] Comment on above: Performed By: #### V ITB12, IRON #### [facility] [address] [address] [address] Bebeto Alvarado PROF CHEM 8 (BAS METB)on Anion gap [Moles/Vol] 12.2 mmol/L Normal [facility] Comment on above: Performed By: #### B MP #### [facility] [address] [address] [address] Bebeto Alvarado Calcium [Mass/Vol] 8.9 mg/dL Normal 8.5-10.1 [facility] Comment on above: Performed By: #### B MP #### [facility] [address] [address] [address] Bebeto Alvarado Chloride [Moles/Vol] 105 mmol/L Normal 98-107 [facility] Comment on above: Performed By: #### B MP #### [facility] [address] [address] [address] Bebeto Alvarado CO2 [Moles/Vol] 29.6 mmol/L Normal 21.0-32.[address] [facility] Comment on above: Performed By: #### B MP #### [facility] [address] [address] [address] Bebeto Alvarado Creatinine [Mass/Vol] 0.95 mg/dL Normal 0.55-1.02 [facility] Comment on above: Performed By: #### B MP #### [facility] [address] [address] [address] Bebeto Alvarado EGFR-AF QATARI >60 Normal >=[address] [facility] Comment on above: Performed By: #### B MP #### [facility] [address] [address] [address] Bebeto Alvarado EGFR-NON AF QATARI 60 mL/min/1.73m2 Normal >=60 [facility] Comment on above: Performed By: #### B MP #### [facility] [address] [address] [address] Bebeto Alvarado Glucose [Mass/Vol] 101 mg/dL Normal 74-106 [facility] Comment on above: Performed By: #### B MP #### [facility] [address] [address] [address] Bebeto Alvarado Potassium [Moles/Vol] 3.8 mmol/L Normal 3.5-5.1 [facility] Comment on above: Performed By: #### B MP #### [facility] [address] [place] [address] Dr. Bebeto Alvarado Sodium [Moles/Vol] 143 mmol/L Normal 136-145 [facility] Comment on above: Performed By: #### B MP #### [facility] [address] [place] [address] Dr. Bebeto Alvarado Urea nitrogen [Mass/Vol] 16.0 mg/dL Normal 7.0-18.0 [facility] Comment on above: Performed By: #### B MP #### [facility] [address] [place] [address] Dr. Bebeto Alvarado Urea nitrogen/Creatinine [Mass ratio] 16.8 mg/mg Normal [facility] Comment on above: Performed By: #### B MP #### [facility] [address] [place] [address] Dr. Bebeto Alvarado CBC AUTO DIFFon 11-21-2021 BASO # 0.1 103/ul Normal 0.0-0.1 [facility] Comment on above: Performed By: #### A 1C #### [facility] [address] [place] [address] Dr. Bebeto Alvarado Basophils/100 WBC (Bld) 1.0 % Normal 0.2-2.0 [facility] Comment on above: Performed By: #### A 1C #### [facility] [address] [place] [address] Dr. Bebeto Alvarado EO # 0.2 103/ul Normal 0.0-0.7 [facility] Comment on above: Performed By: #### A 1C #### [facility] [address] [place] [address] Dr. Bebeto Alvarado Eosinophils/100 WBC (Bld) 3.3 % Normal 0.9-7.0 [facility] Comment on above: Performed By: #### A 1C #### [facility] [address] [place] [address] Dr. Bebeto Alvarado Erythrocyte distribution width (RBC) [Ratio] 13.8 % Normal 11.0-15.0 [facility] Comment on above: Performed By: #### A 1C #### [facility] [address] [place] [address] Dr. Bebeto Alvarado Hematocrit (Bld) [Volume fraction] 38.8 % Normal 36.0-48.0 [facility] Comment on above: Performed By: #### A 1C #### [facility] [address] [place] [address] Dr. Bebeto Alvarado Hemoglobin (Bld) [Mass/Vol] 12.5 g/dL Normal 12.0-16.0 [facility] Comment on above: Performed By: #### A 1C #### [facility] [address] [place] [address] Dr. Bebeto Alvarado IG # 0.02 10e3/ul Normal 0.00-0.03 [facility] Comment on above: Performed By: #### A 1C #### [facility] [address] [place] [address] Dr. Bebeto Alvarado IG % 0.3 % Normal 0.0-0.5 [facility] Comment on above: Performed By: #### A 1C #### [facility] [address] [place] [address] Dr. Bebeto Alvarado LYMPH # 1.9 103/ul Normal 1.2-3.8 [facility] Comment on above: Performed By: #### A 1C #### [facility] [address] [place] [address] Dr. Bebeto Alvarado Lymphocytes/100 WBC (Bld) 29.6 % Normal 20.5-60.0 [facility] Comment on above: Performed By: #### A 1C #### [facility] [address] [place] [address] Dr. Bebeto Alvarado MANUAL DIFF REQ NO Normal [facility] Comment on above: Performed By: #### A 1C #### [facility] [address] [place] [address] Dr. Bebeto Alvarado MCH (RBC) [Entitic mass] 28.0 pg Normal 26.7-34.0 [facility] Comment on above: Performed By: #### A 1C #### [facility] [address] [place] [address] Dr. Bebeto Alvarado MCHC (RBC) [Mass/Vol] 32.2 g/dL Normal 29.9-35.2 [facility] Comment on above: Performed By: #### A 1C #### [facility] [address] [place] [address] Dr. Bebeto Alvarado MCV (RBC) [Entitic vol] 86.8 fL Normal 81.0-99.0 [facility] Comment on above: Performed By: #### A 1C #### [facility] [address] [place] [address] Dr. Bebeto Alvarado MONO # 0.4 103/ul Normal 0.3-0.8 [facility] Comment on above: Performed By: #### A 1C #### [facility] [address] [place] [address] Dr. Bebeto Alvarado Monocytes/100 WBC (Bld) 5.7 % Normal 1.7-12.0 [facility] Comment on above: Performed By: #### A 1C #### [facility] [address] [place] [address] Dr. Bebeto Alvarado NEUT # 3.8 103/ul Normal 1.4-6.5 [facility] Comment on above: Performed By: #### A 1C #### [facility] [address] [place] [address] Dr. Bebeto Alvarado Neutrophils/100 WBC (Bld) 60.1 % Normal 43.0-75.0 [facility] Comment on above: Performed By: #### A 1C #### [facility] [address] [place] [address] Dr. Bebeto Alvarado Platelet mean volume (Bld) [Entitic vol] 11.0 fL Normal 9.5-13.5 [facility] Comment on above: Performed By: #### A 1C #### [facility] [address] [place] [address] Dr. Bebeto Alvarado PLT 264 103/ul Normal 150-450 [facility] Comment on above: Performed By: #### A 1C #### [facility] [address] [address] [address] Bebeto Alvarado RBC 4.47 106/ul Normal 4.20-5.40 [facility] Comment on above: Performed By: #### A 1C #### [facility] [address] [place] [address] Dr. Bebeto Alvarado WBC 6.3 103/ul Normal 4.0-11.0 [facility] Comment on above: Performed By: #### A 1C #### [facility] [address] [place] [address] Dr. Bebeto Alvarado GLYCOHEMOGLOBIN A1Con 2021 ADA RECOMMENDATION SEE BELOW Normal [facility] Comment on above: Result Comment: ADA RECOMMENDED LIMIT 4.0 - 6.0 ADA THERAPEUTIC TARGET < 7.0 ACTION SUGGESTED > 7.0 Performed By: #### A 1C #### [facility] [address] [place] [address] Dr. Bebeto Alvarado Glucose [Mass/Vol] 105 mg/dL Normal [facility] Comment on above: Performed By: #### A 1C #### [facility] [address] [place] [address] Dr. Bebeto Alvarado HbA1c (Bld) [Mass fraction] 5.3 % Normal 4.5-6.2 [facility] Comment on above: Performed By: #### A 1C #### [facility] [address] [place] [address] Dr. Bebeto Alvarado IRONon 11-21-2021 Iron [Mass/Vol] 59.0 ug/dL Normal 50.0-170.0 [facility] Comment on above: Performed By: #### A 1C #### [facility] [address] [place] [address] Dr. Bebeto Alvarado LIPID PROFILEon 11-21-2021 CHOL-HDL RATIO NORM SEE BELOW Normal [facility] Comment on above: Result Comment: 3.3 - 4.4 LOW RISK 4.4 - 7.1 AVERAGE RISK 7.1 - 11.0 MODERATE RISK >11.0 HIGH RISK Performed By: #### C MP, LIPID #### [facility] [address] [address] [address] Bebeto Alvarado Cholesterol [Mass/Vol] 139 mg/dL Normal <=200 [facility] Comment on above: Performed By: #### C MP, LIPID #### [facility] [address] [place] [address] Dr. Bebeto Alvarado Cholesterol in HDL [Mass/Vol] 35 mg/dL Critically low 40-60 [facility] Comment on above: Performed By: #### C MP, LIPID #### [facility] [address] [place] [address] Dr. Bebeto Alvarado Cholesterol in LDL [Mass/Vol] 69.6 mg/dL Normal [facility] Comment on above: Performed By: #### C MP, LIPID #### [facility] [address] [place] [address] Dr. Bebeto Alvarado Cholesterol.total/Chol esterol in HDL [Mass ratio] 4.0 {ratio} Normal [facility] Comment on above: Performed By: #### C MP, LIPID #### [facility] [address] [place] [address] Dr. Bebeto Alvarado HDL NORMAL > or = 60 mg/dl - LO W CARDIOVASCULAR RISK <40 mg/dl - HIGH CARDIOVASCULAR RISK Normal [facility] Comment on above: Performed By: #### C MP, LIPID #### [facility] [address] [place], [place] [id number] Dr. Bebeto Alvarado LDL CALC NORMAL SEE BELOW Normal [facility] Comment on above: Result Comment: <100 mg/dl OPTIMAL 100 - 129 mg/dl NEAR OR ABOVE OPTIMAL 130 - 159 mg/dl BORDERLINE HIGH 160 - 189 mg/dl HIGH >190 mg/dl VERY HIGH Performed By: #### C MP, LIPID #### [facility] [address] [address] [address] Bebeto Alvarado Triglyceride [Mass/Vol] 172 mg/dL Critically high <=150 [facility] Comment on above: Performed By: #### C MP, LIPID #### [facility] [address] [address] [address] Bebeto Alvarado VLDL CALC 34.4 mg/dL Normal [facility] Comment on above: Performed By: #### C MP, LIPID #### [facility] [address] [address] [address] Bebeto Alvarado PROF 14(COMP METB)on 022 Albumin [Mass/Vol] 3.8 g/dL Normal 3.4-5.0 [facility] Comment on above: Performed By: #### C MP, LIPID #### [facility] [address] [place] [address] Dr. Bebeto Alvarado Albumin/Globulin [Mass ratio] 1.1 {ratio} Normal [facility] Comment on above: Performed By: #### C MP, LIPID #### [facility] [address] [place] [address] Dr. Bebeto Alvarado ALP [Catalytic activity/Vol] 96 U/L Normal 46-116 [facility] Comment on above: Performed By: #### C MP, LIPID #### [facility] [address] [place] [address] Dr. Bebeto Alvarado ALT [Catalytic activity/Vol] 25 U/L Normal 14-59 [facility] Comment on above: Performed By: #### C MP, LIPID #### [facility] [address] [place] [address] Dr. Bebeto Alvarado Anion gap [Moles/Vol] 11.8 mmol/L Normal [facility] Comment on above: Performed By: #### C MP, LIPID #### [facility] [address] [place] [address] Dr. Bebeto Alvarado AST [Catalytic activity/Vol] 20 U/L Normal 15-37 [facility] Comment on above: Performed By: #### C MP, LIPID #### [facility] [address] [address] [address] Bebeto Alvarado Bilirubin [Mass/Vol] 0.4 mg/dL Normal 0.2-1.0 [facility] Comment on above: Performed By: #### C MP, LIPID #### [facility] [address] [address] [address] Bebeto Alvarado Calcium [Mass/Vol] 8.8 mg/dL Normal 8.5-10.1 [facility] Comment on above: Performed By: #### C MP, LIPID #### [facility] [address] [address] [address] Bebeto Alvarado Chloride [Moles/Vol] 106 mmol/L Normal 98-107 [facility] Comment on above: Performed By: #### C MP, LIPID #### [facility] [address] [place] [address] Dr. Bebeto Alvarado CO2 [Moles/Vol] 27.0 mmol/L Normal 21.0-32.[address] [facility] Comment on above: Performed By: #### C MP, LIPID #### [facility] [address] [place] [address] Dr. Bebeto Alvarado Creatinine [Mass/Vol] 0.97 mg/dL Normal 0.55-1.02 [facility] Comment on above: Performed By: #### C MP, LIPID #### [facility] [address] [place] [address] Dr. Bebeto Alvarado EGFR-AF QATARI >60 Normal >=[address] [facility] Comment on above: Performed By: #### C MP, LIPID #### [facility] [address] [place] [address] Dr. Bebeto Alvarado EGFR-NON AF QATARI 59 mL/min/1.73m2 Critically low >=60 [facility] Comment on above: Performed By: #### C MP, LIPID #### [facility] [address] [place] [address] Dr. Bebeto Alvarado Globulin (S) [Mass/Vol] 3.4 g/dL Normal [facility] Comment on above: Performed By: #### C MP, LIPID #### [facility] [address] [address] [address] Bebeto Alvarado Glucose [Mass/Vol] 103 mg/dL Normal 74-106 [facility] Comment on above: Performed By: #### C MP, LIPID #### [facility] [address] [address] [address] Bebeto Alvarado Potassium [Moles/Vol] 3.8 mmol/L Normal 3.5-5.1 [facility] Comment on above: Performed By: #### C MP, LIPID #### [facility] [address] [place] [address] Dr. Bebeto Alvarado Protein [Mass/Vol] 7.2 g/dL Normal 6.4-8.2 [facility] Comment on above: Performed By: #### C MP, LIPID #### [facility] [address] [place] [address] Dr. Bebeto Alvarado Sodium [Moles/Vol] 141 mmol/L Normal 136-145 [facility] Comment on above: Performed By: #### C MP, LIPID #### [facility] [address] [place] [address] Dr. Bebeto Alvarado Urea nitrogen [Mass/Vol] 11.0 mg/dL Normal 7.0-18.0 [facility] Comment on above: Performed By: #### C MP, LIPID #### [facility] [address] [place] [address] Dr. Bebeto Alvarado Urea nitrogen/Creatinine [Mass ratio] 11.3 mg/mg Normal [facility] Comment on above: Performed By: #### C MP, LIPID #### [facility] [address] [place] [address] Dr. Bebeto Alvarado URIC ACID SERUMon 11-21-2021 Urate [Mass/Vol] 7.3 mg/dL Critically high 2.6-6.0 [facility] Comment on above: Performed By: #### A 1C #### [facility] [address] [place] [address] Dr. Bebeto Alvarado VITAMIN B12on 11-21-2021 Cobalamin (Vitamin B12) [Mass/Vol] 2123.0 pg/mL Critically high 193.0-986.0 [facility] Comment on above: Performed By: #### A 1C #### [facility] [address] [address] [address] Bebeto Alvarado Physician Referralon 022 Physician Referral [phone] [id number] Normal [facility] KNEE RIGHT 1 OR 2 VWSon KNEE RIGHT 1 OR 2 VWS [facility] Department of Radiology [address] [place] [address] ======== Patient Name: MICHELLE BE [...] Electronically signed by:Debra Del Cid. Transcribed by: [email or web address], User Resident: Electronically Signed by: DEBRA DEL CID @ 02/08/2019 11:16 AM Normal [facility] Comment on above: Order Comment: , Mabel ws (X-RAY, KNEE): Radiologic Protocol , Weight Bearing?: N , With or Without Brace/Cast/Collar: With , Views (X-RAY, KNEE): Radiologic Protocol , Weight Bearing?: N , With or Without Brace/Cast/Collar: With , , , Ordering Provider - AHSAN BINGHAM PA-C , KNEE RIGHT 1 OR 2 [facility] KNEE RIGHT 1 OR 2 [facility] Department of Radiology [address] [place] [id number] ======== Patient Name: MICHELLE BE : 1960 Sex: F Age: Race: White Pt. Location: Patient Status: Ordered Date: 12/07/2018 10:20:00 AM Completed Date: 12/07/2018 10:20 AM Requesting Provider: AHSAN BINGHAM Attending Provider: Report Copy To: Signs & Symptoms: S82.001A Unsp fracture of right patella, init for clos fx I10 History: [place] Comments: , , , Ordering Provider - [...] complications. Electronically signed by:Tomasz Stoll. Transcribed by: [email or web address], User Resident: Electronically Signed by: TOMASZ STOLL @ 12/07/2018 11:14 AM Normal [facility] Comment on above: Order Comment: , aMbel ws (X-RAY, KNEE): Radiologic Protocol , Weight Bearing?: N , With or Without Brace/Cast/Collar: With , Views (X-RAY, KNEE): Radiologic Protocol , Weight Bearing?: N , With or Without Brace/Cast/Collar: With , , , Ordering Provider - AHSAN BINGHAM PA-C , KNEE RIGHT 1 OR 2 VWSon KNEE RIGHT 1 OR 2 VWS [facility] Department of Radiology [address] [facility] [place] [address] ======== Patient Name: MICHELLE BE [...] , , , Ordering Provider - AHSAN OTILIA PA-C , PROTOCOL: AP(PA) and Lateral views [...] osteoarthritis Electronically signed by:Anup Ellison. Transcribed by: [email or web address], User Resident: Electronically Signed by: ANUP ELLISON @ 10/06/2018 02:48 PM Normal [facility] Comment on above: Order Comment: , Vie ws (X-RAY, KNEE): Radiologic Protocol , Weight Bearing?: N , With or Without Brace/Cast/Collar: With , Views (X-RAY, KNEE): Radiologic Protocol , Weight Bearing?: N , With or Without Brace/Cast/Collar: With , , , Ordering Provider - AHSAN BINGHAM PA-C , KNEE RIGHT 1 OR 2 [facility] 08-05 KNEE RIGHT 1 OR 2 [facility] Department of Radiology [address] [place] [id number] ======== Patient Name: MICHELLE BE : [...] , Exam: KNEE RIGHT 1 OR 2 [facility] ======== KNEE RIGHT 1 OR [...] effusion Electronically signed by:Anup Ellison. Transcribed by: [email or web address], User Resident: Electronically Signed by: ANUP ELLISON @ 08/26/2018 04:56 PM Normal [facility] Comment on above: Order Comment: , Mabel ws (X-RAY, KNEE): Radiologic Protocol , Weight Bearing?: N , With or Without Brace/Cast/Collar: With , Views (X-RAY, KNEE): Radiologic Protocol , Weight Bearing?: N , With or Without Brace/Cast/Collar: With , , , Ordering Provider - AHSAN BINGHAM PA-C , KNEE RIGHT 1 OR 2 [facility] 07-06 KNEE RIGHT 1 OR 2 [facility] Department of Radiology [address] [place] [id number] ======== Patient Name: MICHELLE BE : 1960 Sex: F Age: Race: White Pt. Location: 84 Patient Status: Ordered Date: 07/29/2018 2:10:00 PM Completed Date: 07/29/2018 02:12 PM Requesting Provider: AHSAN BINGHAM Attending Provider: Report Copy To: Signs & Symptoms: S82.001A Unsp fracture of right patella, init for clos fx I10 History: [place] Comments: , , , Ordering Provider - [...] compartment Electronically signed by:Anup Ellison. Transcribed by: [email or web address], User Resident: Electronically Signed by: ANUP ELLISON @ 07/29/2018 03:41 PM Normal [facility] Comment on above: Order Comment: , Vie ws (X-RAY, KNEE): Radiologic Protocol , Weight Bearing?: N , With or Without Brace/Cast/Collar: With , Views (X-RAY, KNEE): Radiologic Protocol , Weight Bearing?: N , With or Without Brace/Cast/Collar: With , , , Ordering Provider - AHSAN BINGHAM PA-C , KNEE RIGHT 3 [facility] 9 KNEE RIGHT [address] [facility] Department of Radiology [address] [place] [id number] ======== Patient Name: MICHELLE BE : [...] BINGHAM PA-C , Exam: KNEE RIGHT 3 [facility] ======== KNEE RIGHT 3 VWS 07/15/2018 8:47 [...] knee Electronically signed by:Anup Ellison. Transcribed by: [email or web address], User Resident: Electronically Signed by: ANUP ELLISON @ 07/15/2018 03:31 PM Normal [facility] Comment on above: Order Comment: , Mabel ws (X-RAY, KNEE): Radiologic Protocol , Weight Bearing?: N , With or Without Brace/Cast/Collar: With , Views (X-RAY, KNEE): Radiologic Protocol , Weight Bearing?: N , With or Without Brace/Cast/Collar: With , , , Ordering Provider - AHSAN BINGHAM PA-C , Operative Reporton 9 Operative Report MR#: [id number] [facility] Pt. Name: Michelle Be Room #: [...] Duarte MD Date Trans: 07/03/2018 04:28 A/terry [id number] Normal [facility] *ANAEROBIC CULTUREon 019 *ANAEROBIC CULTURE Clinical Report: (D) Specimen/Source: SWAB/RT KNEE Collected: 07/02/2018 13:53 Status: Final Last Updated: 07/07/2018 08:02 CULT RES (Final) No Anaerobes Isolated 5 Days Normal [facility] Comment on above: Performed By: #### 3 0312 #### [facility] [address] *WOUND CULTUREon 07-02-2018 *WOUND CULTURE Clinical Report: (D) Specimen/Source: WOUND/INTRAOP SPEC Collected: 07/02/2018 13:53 Status: Final Last Updated: 07/07/2018 10:13 (1) #1 RT KNEE GRAM (Final) Rare Polys No Bacteria Seen CULT RES (Final) No Growth Day [address] [facility] Comment on above: Order Comment: #1 RT KNEE Performed By: #### 3 0343 #### [facility] [address] [place] [address], [facility] KNEE RIGHT 1 OR 2 Sri 06-05 KNEE RIGHT 1 OR 2 VWS [facility] Department of Radiology [address] [place] [address] ======== Patient Name: MICHELLE BE [...] PATELLA Exam: KNEE RIGHT 1 OR 2 [facility] ======== KNEE RIGHT 1 OR 2 [facility] 07/02/2018 2:00 PM EDT SIGNS AND SYMPTOMS: ORIF VS PERCUTANEOUS FIXATION RIGHT PATELLA TECHNOLOGIST COMMENTS: 1.58 mins of fluoro used by Dr Escalante LT knee screw fixation revision QUESTION FOR THE RADIOLOGIST: ORIF VS PERCUTANEOUS FIXATION RIGHT PATELLA PROTOCOL: AP(PA) and Lateral views were obtained. COMPARISON: None FINDINGS: Soft tissues: Bones: Joints: IMPRESSION: Documentation Electronically signed by:Debra Del Cid. Transcribed by: [email or web address], User Resident: Electronically Signed by: DEBRA DEL CID @ 07/02/2018 02:03 PM Normal [facility] Comment on above: Order Comment: ORIF VS PERCUTANEOUS FIXATION RIGHT PATELLA POC GLUCOSE LABon 07-02-2018 Glucose [Mass/Vol] 108 mg/dL High 70-100 [facility] Comment on above: Performed By: #### 8 [id number] #### [facility] [address] [place] [address], [facility] APTTon 06-30-2018 aPTT Coag (Bld) [Time] 30.6 s Normal 25.0-35.0 [facility] Comment on above: Result Comment: ALL [...] THIS PURPOSE. Performed By: #### 5 6101, [id number] #### [facility] [address] [place] [address], [facility] BASIC METABOLIC PANELon 06-05 Calcium [Mass/Vol] 9.7 mg/dL Normal 8.6-10.3 [facility] Comment on above: Performed By: #### 0 0071 #### [facility] [address] [place] [address], [facility] Chloride [Moles/Vol] 102 mmol/L Normal 98-107 [facility] Comment on above: Performed By: #### 0 0071 #### [facility] [address] [place] [address], [facility] CO2 [Moles/Vol] 28 mmol/L Normal 21-31 [facility] Comment on above: Performed By: #### 0 0071 #### [facility] [address] [place] [address], [facility] Creatinine [Mass/Vol] 1.20 mg/dL Normal 0.60-1.20 [facility] Comment on above: Performed By: #### 0 0071 #### [facility] [address] [place] [address], [facility] GFR/1.73 sq M predicted among blacks MDRD (S/P/Bld) [Vol rate/Area] 56 ml/min/1.73sq m Abnormal >60 [facility] Comment on above: Performed By: #### 0 0071 #### [facility] [address] [place] [address], [facility] GFR/1.73 sq M predicted among non-blacks MDRD (S/P/Bld) [Vol rate/Area] 47 ml/min/1.73sq m Abnormal >60 [facility] Comment on above: Performed By: #### 0 0071 #### [facility] [address] [facility] [place] [address], [facility] Glucose [Mass/Vol] 97 mg/dL Normal 70-100 [facility] Comment on above: Performed By: #### 0 0071 #### [facility] [address] [place] [address], [facility] Potassium [Moles/Vol] 4.1 mmol/L Normal 3.5-5.1 [facility] Comment on above: Performed By: #### 0 0071 #### [facility] [address] [place] [address], [facility] Sodium [Moles/Vol] 137 mmol/L Normal 136-145 [facility] Comment on above: Performed By: #### 0 0071 #### [facility] [address] [facility] [place] [address], [facility] Urea nitrogen [Mass/Vol] 19 mg/dL Normal 7-25 [facility] Comment on above: Performed By: #### 0 0071 #### [facility] [address] [facility] [place] [address], [facility] CBC W/DIFFon 06-30-2018 ABS BASOPHILS 0.1 10*3/uL Normal 0.0-0.2 [facility] Comment on above: Performed By: #### 5 0103 #### [facility] [address] [facility] [place] [address], [facility] ABS IMM GRANS 0.0 10*3/uL Normal 0.0-0.2 [facility] Comment on above: Performed By: #### 5 0103 #### [facility] [address] [facility] [place] [address], [facility] ABS NEUTROPHILS 6.4 10*3/uL Normal 1.6-7.6 [facility] Comment on above: Performed By: #### 5 0103 #### [facility] [address] [facility] [place] [address], [facility] Basophils/100 WBC (Bld) 0.7 % Normal 0.0-1.0 [facility] Comment on above: Performed By: #### 5 0103 #### [facility] [address] [facility] [place] [address], [facility] Eosinophils (Bld) [#/Vol] 0.2 10*3/uL Normal 0.0-0.5 [facility] Comment on above: Performed By: #### 5 0103 #### [facility] [address] [facility] [place] [address], [facility] Eosinophils/100 WBC (Bld) 1.5 % Normal 0.0-6.0 [facility] Comment on above: Performed By: #### 5 0103 #### [facility] [address] [facility] [address] Erythrocyte distribution width (RBC) [Ratio] 14.4 % Normal 11.5-15.0 [facility] Comment on above: Performed By: #### 5 0103 #### [facility] [address] [place] [address], [facility] Hematocrit (Bld) [Volume fraction] 40.6 % Normal 36.0-45.0 [facility] Comment on above: Performed By: #### 5 0103 #### [facility] [address] [facility] [place] [address], [facility] Hemoglobin (Bld) [Mass/Vol] 13.3 g/dL Normal 12.0-15.0 [facility] Comment on above: Performed By: #### 5 0103 #### [facility] [address] [facility] [place] [address], [facility] IMMATURE GRANS 0.4 % Normal 0.0-1.0 [facility] Comment on above: Performed By: #### 5 0103 #### [facility] [address] [facility] [place] [address], [facility] Lymphocytes (Bld) [#/Vol] 2.6 10*3/uL Normal 1.2-4.0 [facility] Comment on above: Performed By: #### 5 0103 #### [facility] [address] [place] [address], [facility] Lymphocytes/100 WBC (Bld) 26.5 % Normal 20.0-45.0 [facility] Comment on above: Performed By: #### 5 0103 #### [facility] [address] [facility] [place] [address], [facility] MCH (RBC) [Entitic mass] 27.4 pg Normal 27.0-33.0 [facility] Comment on above: Performed By: #### 5 0103 #### [facility] [address] [place] [address], [facility] MCHC (RBC) [Mass/Vol] 32.8 g/dL Normal 32.0-35.0 [facility] Comment on above: Performed By: #### 5 0103 #### [facility] [address] [place] [address], [facility] MCV (RBC) [Entitic vol] 83.5 fL Normal 82.0-98.0 [facility] Comment on above: Performed By: #### 5 0103 #### [facility] [address] [place] [address], [facility] Monocytes (Bld) [#/Vol] 0.5 10*3/uL Normal 0.1-1.0 [facility] Comment on above: Performed By: #### 5 0103 #### [facility] [address] [place] [address], [facility] MONOS 5.0 % Normal 5.0-12.0 [facility] Comment on above: Performed By: #### 5 0103 #### [facility] [address] [place] [address], [facility] Neutrophils/100 WBC (Bld) 65.9 % Normal 40.0-72.0 [facility] Comment on above: Performed By: #### 5 0103 #### [address] Nucleated RBC/100 WBC (Bld) [Ratio] 0 % Normal 0-0 [facility] Comment on above: Performed By: #### 5 0103 #### [address] PLAT CNT 290 10*3/uL Normal 150-400 [facility] Comment on above: Performed By: #### 5 0103 #### [place] [address], [facility] RBC (Bld) [#/Vol] 4.86 10*6/uL Normal 3.80-5.00 [facility] Comment on above: Performed By: #### 5 0103 #### [place] [address], [facility] WBC (Bld) [#/Vol] 9.68 10*3/uL Normal 4.00-10.60 [facility] Comment on above: Performed By: #### 5 0103 #### [address] KNEE RIGHT 1 OR 2 VWSon 06-05 KNEE RIGHT 1 OR 2 VWS [facility] Department of Radiology [address] [place] [id number] ======== Patient Name: MICHELLE BE : 1960 Sex: F Age: Race: White Pt. 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 Transcribed by: [email or web address], User Resident: Electronically Signed by: DEBRA DEL CID @ 06/30/2018 11:[address] [facility] Comment on above: Order Comment: , Maebl ws (X-RAY, KNEE): Radiologic Protocol , Weight Bearing?: N , With or Without Brace/Cast/Collar: With , Views (X-RAY, KNEE): Radiologic Protocol , Weight Bearing?: N , With or Without Brace/Cast/Collar: With , , , Ordering Provider - AHSAN BINGHAM PA-C , PROTHROMBIN TIMEon 9 INR Coag (PPP) [Relative time] 0.98 {INR} Normal 0.91-1.16 [facility] Comment on above: Result Comment: [facility] P RECOMMENDED INR FOR WARFARIN THERAPY --------- [...] CHEST 1995;108:231S-246S. Performed By: #### 5 6101, [id number] #### [facility] [address] [facility] [place] [address], [facility] PT Coag (PPP) [Time] 13.0 s Normal 12.3-14.8 [facility] Comment on above: Result Comment: ALL RESULTS MUST BE INTERPRETED WITH RESPECT TO BLOOD DRAWING ARTIFACT OR DILUTION ERROR OF ANTICOAGULANT AT THE TIME OF SAMPLING. Performed By: #### 5 6101, [id number] #### [facility] [address] [place] [address], [facility] KNEE RIGHT 3 Son 9 KNEE RIGHT 3 S [facility] Department of Radiology [address] [place] [id number] ======== Patient Name: MICHELLE BE : 1960 Sex: F Age: Race: White Pt. Location: Patient Status: O Ordered Date: 06/15/2018 1:35:00 PM Completed Date: 06/15/2018 01:34 PM Requesting Provider: AMPARO ZHANG Attending Provider: AMPARO ZHANG Report Copy To: ADELAIDA CARRION Signs & Symptoms: M17.11 Unilateral primary osteoarthritis, right knee I10 History: [place] Comments: , Weight Bearing?: Y , Weight Bearing?: Y , , , Ordering Provider - AMPARO ZHANG PA-C , Exam: KNEE RIGHT 3 S ======== KNEE RIGHT 3 VWS 06/15/2018 1:34 [...] effusion Electronically signed by:Anup Ellison. Transcribed by: [email or web address], User Resident: Electronically Signed by: ANUP ELLISON @ 06/15/2018 03:50 PM Normal [facility] Comment on above: Order Comment: , Isaiah ght Bearing?: Y , Weight Bearing?: Y , , , Ordering Provider Maldonado ZHANG PA-C , Vital Signs Date Time Vital Sign Value Performing Clinician Facility 05-18-2023 16:30-0500 Body height 162.6 cm Adelaida Carrion [employer] Work Phone: [facility] 05-18-2023 16:30-0500 Body mass index (BMI) [Ratio] 47.89 kg/m2 Adelaida Carrion [employer] Work Phone: [facility] 05-18-2023 16:30-0500 Body temperature 97.3 [degF] Adelaida Carrion [employer]ER Work Phone: [facility] 05-18-2023 16:30-0500 Body weight 126.55 kg Adelaida Aichholz [employer] Work Phone: [facility] 05-18-2023 16:30-0500 Diastolic blood pressure 80 mm[Hg] Adelaida Aichholz [employer] Work Phone: [facility] 05-18-2023 16:30-0500 Heart rate 76 /min Adelaida Aichholz [employer] Work Phone: [facility] 05-18-2023 16:30-0500 Respiratory rate 19 /min Adelaida Aichholz [employer] Work Phone: [facility] 05-18-2023 16:30-0500 SaO2% (BldA) [Mass fraction] 97 % Adelaida Aichholz [employer] Work Phone: [facility] 05-18-2023 16:30-0500 Systolic blood pressure 134 mm[Hg] Adelaida Aichholz [employer]SEM[employer] Work Phone: [facility] 03-23-2023 12:10-0500 Diastolic blood pressure 98 mm[Hg] Adelaida Aichholz Work Phone: [facility] 03-23-2023 12:10-0500 Heart rate 76 /min Adelaida Aichholz Work Phone: [facility] 03-23-2023 12:10-0500 Respiratory rate 18 /min Adelaida Aichholz Work Phone: [facility] 03-23-2023 12:10-0500 SaO2% (BldA) [Mass fraction] 99 % Adelaida Aichholz Work Phone: [facility] 03-23-2023 12:10-0500 Systolic blood pressure 162 mm[Hg] Adelaida Aichholz Work Phone: [facility] 03-23-2023 10:53-0500 Body height 162.56 cm Adelaida Aichholz Work Phone: [facility] 03-23-2023 10:53-0500 Body weight 125.64 kg Adelaida Aicmarquesholz Work Phone: [facility] 12-19-2022 14:55-0400 Body height 162.56 cm Rosemary Kirkland Other [employer] [place] Other 12-19-2022 14:55-0400 Body mass index (BMI) [Ratio] 47.85 kg/m2 Rosemary Kirkland Other [employer] [place] Other 12-19-2022 14:55-0400 Body temperature 97.8 [degF] Rosemary Kirkland Other [employer] [place] Other 12-19-2022 14:55-0400 Body weight 126.46 kg Rosemary Kirkland Other [employer] [place] Other 12-19-2022 14:55-0400 Respiratory rate 20 /min Rosemary Kirkland Other [employer] [place] Other 12-19-2022 14:55-0400 SaO2% (BldA) [Mass fraction] 95 % Rosemary Kirkland Other [employer] [place] Other 11-20-2022 13:12-0400 Body temperature 97.7 [degF] Adelaida Aichholz Work Phone: [facility] 11-20-2022 13:12-0400 SaO2% (BldA) [Mass fraction] 96 % Adelaida Aichholz Work Phone: [facility] 11-20-2022 07:44-0400 Diastolic blood pressure 90 mm[Hg] Adelaida Aichholz Work Phone: [facility] 11-20-2022 07:44-0400 Heart rate 103 /min Adelaida Aichholz Work Phone: [facility] 11-20-2022 07:44-0400 Systolic blood pressure 152 mm[Hg] Adelaida Aichholz Work Phone: [facility] 11-19-2022 20:00-0400 Respiratory rate 18 /min Adelaida Aichholz Work Phone: [facility] 11-18-2022 15:18-0400 Body height 162.56 cm Adelaida Aichholz Work Phone: [facility] 11-17-2022 09:00-0400 Body weight 122.92 kg Adelaida Aichholz Work Phone: [facility] Encounters Encounter Date Encounter Type Care Provider Facility Start: 01-05-2024 End: 01-05-2024 Clinis[facility] Result Encounter Adelaida Merryholz [employer] Work Phone: [facility] External Department Unsolicited Start: 01-05-2024 End: 01-05-2024 Clinisync Result Encounter Adelaida Aichholz VOLTAGE REGULATOR ASSEMBLER Work Phone: [facility] Unsolicited Start: 01-04-2024 End: 01-04-2024 ambulatory ADELAIDA AICHHOLZ Not Available Start: 12-10-2023 ambulatory Adelaida J Aichbob Facilit y:[facility] Start: 12-09-2023 End: 12-09-2023 ambulatory SUHAS GILLMOR [...] End: 06-30-2023 ambulatory Syeda Mancuso MD Facility: [facility] Start: 05-22-2023 End: 05-22-2023 ambulatory SAHLEIGH HINES Not Available Start: 05-21-2023 Refill Adelaida Carrion VOLTAGE REGULATOR ASSEMBLER Work Phone: [facility] Comment on above: Acute cystitis with hematuria (Primary Dx) Start: 05-18-2023 End: 05-18-2023 Office outpatient visit 25 minutes Adelaida Carrion VOLTAGE REGULATOR ASSEMBLER Work Phone: [facility] Comment on above: Encounter for annual wellness visit (AWV) in Medicare patient (Primary Dx); OSMANY (obstructive sleep apnea); Chronic pain disorder; Gastroesophageal reflux disease, unspecified whether esophagitis present; Overactive bladder; Lower extremity edema; Pre-diabetes; Morbid obesity (CMS/HCC); Yeast infection of the skin; Tobacco dependence; Mood disorder (CMS/HCC); Primary hypertension (CMS/[facility]); Left hip pain; Open wound of anterior abdominal wall, initial encounter Start: 05-18-2023 End: 05-18-2023 ambulatory ADELAIDA AICHHOLZ Not Available Start: 05-18-2023 Bamboo flowsheet Adelaida Kelsiez VOLTAGE REGULATOR ASSEMBLER Work Phone: [facility] Start: 05-18-2023 Bamboo flowsheet Adelaida Sheyla VOLTAGE REGULATOR ASSEMBLER Work Phone: [facility] Start: 05-18-2023 End: 05-18-2023 Patient encounter procedure Adelaida Sheyla VOLTAGE REGULATOR ASSEMBLER Work Phone: [facility] Start: 03-25-2023 End: 03-25-2023 ambulatory ADELAIDA AICHHOLZ Not Available Start: 03-23-2023 End: 03-23-2023 Admission to same day surgery center Adelaida Carrion Work Phone: [facility] Work Phone: Start: 03-23-2023 End: 03-23-2023 ambulatory Adelaida Carrion Work Phone: [facility] Work Phone: Start: 03-11-2023 End: 03-11-2023 ambulatory KALLI INTERIANO Not Available Start: 02-20-2023 End: 02-20-2023 ambulatory ASHLEIGH Tabby HINES Not Available Start: 02-12-2023 End: 02-12-2023 ambulatory Jace Graham Other [place] [employer] Other Start: 02-12-2023 Telephone encounter Jace Haney Dish Carrier Start: 12-19-2022 End: 12-19-2022 ambulatory Rosemary Kirkland Other [place] [employer] Other Start: 12-19-2022 Office outpatient ne w 10 minutes Rosemary Kirkland [facility] [place] Start: 11-17-2022 End: 11-20-2022 Evaluation and management of inpatient Adelaida Carrion Work Phone: [facility] Work Phone: Start: 09-04-2022 ambulatory ARIAN JOHNSON . Facili ty:H1 Start: 08-26-2022 ambulatory NARENDRANATH LAKSHMIPATHY . Facility:H1 Start: 08-08-2022 End: 08-09-2022 ambulatory HUMAN RESOURCES BENEFITS SPECIALIST ADELAIDA SHEYLA Facility:H1 Start: 07-25-2022 End: 07-26-2022 ambulatory HUMAN RESOURCES BENEFITS SPECIALIST ADELAIDA SHEYLA Facility:H1 Start: 07-15-2022 End: 07-15-2022 ambulatory NARENDRANATH LAKSHMIPATHY . Facility:H1 Start: 07-11-2022 ambulatory NARENDRANATH LAKSHMIPATHY . Facility:H1 Start: 06-26-2022 End: 06-27-[address] FINA ZIMMER . Facility:H1 Start: 06-11-2022 ambulatory LIVIER CARRION Facil ity:H1 Start: 05-21-2022 End: 06-11-2022 ambulatory LIVIER CARRION Facility:H1 Start: 05-08-2022 End: 05-09-2022 ambulatory LIVIER CARRION Facility:H1 Start: 04-28-2022 End: 04-28-2022 ambulatory LIVIER PINEDAGERONIMONena Facility:H1 Start: 04-03-2022 End: 04-04-[address] FINA ZIMMER . Facility:H1 Start: 03-19-2022 End: 03-20-2022 ambulatory LIVIER PINEDAGERONIMONena Facility:H1 Start: 02-20-2022 End: 02-20-2022 ambulatory GILMER NEVES Facility:H1 Start: 01-10-2022 End: 02-12-2022 [facility] Start: 01-02-2022 End: 01-03-[address] FINA ZIMMER . Facility:H1 Start: 01-01-2022 End: 01-02-2022 ambulatory BRIDGETTE Ca [facility] Facility:H1 Start: 12-16-2021 End: 12-16-2021 ambulatory LIVIER WITT JOSE ALBERTOMarquesGERONIMONena Facility:H1 Start: 11-21-2021 End: 11-22-[address] DOCTOR BERGERON Facility:H1 Start: 10-03-2021 End: 10-04-[address] FINA ZIMMER . Facility:H1 Start: 09-19-[address] FINA ZIMMER . Faci lity:H1 Start: 09-12-2021 End: 09-12-2021 ambulatory LIVIER WITT JOSE ALBERTOMarquesGERONIMONena Facility:H1 Start: 08-20-2021 End: 08-20-[address] FINA ZIMMER . Facility:H1 Start: 07-02-2018 End: 07-03-2018 Patient encounter procedure SUKIBULMARO ESCALANTE Facility:[facility] Procedures Date Procedure Procedure Detail Performing Clinician Start: 01-05-2024 ALL BASIC METABOLIC PANEL Adelaida Carrion VOLTAGE REGULATOR ASSEMBLER Work Phone: Start: 09-18-2023 Mammography Adelaida Aichh rachel VOLTAGE REGULATOR ASSEMBLER Work Phone: Start: 03-23-2023 Screening colonoscopy L oneal Sheyla Work Phone: Start: 03-23-2023 Colonoscopy Adelaida Carpenter rachel VOLTAGE REGULATOR ASSEMBLER Work Phone: Start: 09-15-2022 Mammography Adelaida Carpenter rachel VOLTAGE REGULATOR ASSEMBLER Work Phone: Start: 08-28-2022 Microscopic observat ion [Identifier] in Cervix by Cyto stain Adelaida Carrion VOLTAGE REGULATOR ASSEMBLER Work Phone: Start: 07-02-2018 ANESTH KNEE AREA SURGERY CHAPARRITA Lucio RUTHIE Start: 07-02-2018 REMOVAL OF SUPPORT IMPLANT SUKI EBRAHEIM Start: 07-02-2018 TREAT KNEECAP FRACTURE SUKI EBRAHEIM Plan of Treatment Date Care Activity Detail Author Start: 03-23-2033 Screening for malignant neoplasm of colon [facility] Start: 08-28-2025 Screening for malignant neoplasm of cervix [facility] Start: 09-17-2024 Screening for malignant neoplasm of breast Mammogram [facility] Start: 05-18-2024 Medicare Annual Wellness (AWV) Medicare Annual Wellness (AWV) [facility] Start: 04-04-2024 End: 04-04-2024 Patient encounter procedure 04/04/2024 1:20 PM EST Office Visit [facility] [address] [place] [phone] Adelaida Carrion NP [address] [place] [address] [facility] Start: 02-29-2024 End: 02-29-2024 Patient encounter procedure 02/29/2024 2:40 PM EST Office Visit [facility] [place] [address] [place] [phone] Sonam Brown NP [address] [place] [address] [facility] [place] [facility] Start: 02-04-2024 Influenza vaccination Influenza Vacc ine (#1) [facility] Comment on above: Postponed from 12/05 (Patient Does Not Have Time) Start: 09-16-2023 Screening for malignant neoplasm of breast Mammogram [facility] Start: 08-17-2023 End: 08-17-2023 Patient encounter procedure 08/17/2023 9:20 AM EDT Office Visit [facility] [address] [place] [address] Adelaida Carrion NP [address] [place] [phone] [facility] Start: 05-22-2023 End: 05-22-2023 Patient encounter procedure 05/22/2023 8:45 AM EST Office Visit [facility] [address] [facility] [address] [place] [address] Ashleigh Hines, MAUREEN [address] [facility] [address] [place] [address] [facility] Start: 05-18-2023 End: 05-18-2023 Patient encounter procedure 05/18/2023 4:30 PM EST [facility] [address] [place] [address] Adelaida Carrion, BRIANA [address] [place] [phone] Arrived [facility] Comment on above: Arrived Start: 05-18-2023 End: 05-18-2024 XR Hip - left 3 Views XR hip left 2 or 3 views Imaging Routine Left hip pain Expected: 05/18/2023 (Approximate), Expires: 05/18/2024 [facility] Work Phone: Comment on above: Expected: 05/18/2023 (Approximate), Expires: 05/18/2024 Start: 03-23-2023 [facility] Start: 11-20-2022 [facility] Start: 11-18-2022 Referral to clinical physician anesthesiologist [facility] Start: 11-17-2022 Hospital admission [facility] Start: 11-17-2022 [facility] Start: 12-06-1991 Screening for malignant neoplasm of cervix HPV/Cotest [facility] Start: 1960 Medicare Annual Wellness (AWV) Medicare Annual Wellness (AWV) [facility] Start: 1960 Screening for malignant neoplasm of colon [facility] Patient Education [facility] Work Phone: Patient referral [facility] Work Phone: [facility] Immunizations Immunization Date Immunization Notes Care Provider Parker stevens 08-17-2023 zoster vaccine recombinant Adelaida Aicbostonz VOLTAGE REGULATOR ASSEMBLER Work Phone: [facility] 02-13-2023 influenza, injectabl e, quadrivalent, preservative free Adelaida Aichholz VOLTAGE REGULATOR ASSEMBLER Work Phone: [facility] 02-13-2023 SARS-COV-2 (COVID-19 ) vaccine, mRNA, spike protein, LNP, PF, 50 mcg/0.5 mL Adelaida Aichholz VOLTAGE REGULATOR ASSEMBLER Work Phone: [facility] 02-13-2023 influenza virus vaccine, unspecified formulation Adelaida Aichholz VOLTAGE REGULATOR ASSEMBLER Work Phone: [facility] 02-19-2022 diphtheria, tetanus toxoids and pertussis vaccine Adelaida Aichholz VOLTAGE REGULATOR ASSEMBLER Work Phone: [facility] 03-02-2021 Moderna SARS-CoV-2 Vaccination Adelaida Aichholz VOLTAGE REGULATOR ASSEMBLER Work Phone: [facility] 08-24-2020 Moderna SARS-CoV-2 Vaccination Adelaida Aichholz VOLTAGE REGULATOR ASSEMBLER Work Phone: [facility] 07-27-2020 Moderna SARS-CoV-2 Vaccination Adelaida Aichholz VOLTAGE REGULATOR ASSEMBLER Work Phone: [facility] 05-28-2018 influenza, injectabl e, quadrivalent, preservative free Adelaida Carrion Work Phone: [facility] 2017 pneumococcal conjuga te vaccine, 13 valent Adelaida Carrion VOLTAGE REGULATOR ASSEMBLER Work Phone: [facility] Payers Date Payer Category Payer Private Health Insurance [id number] 2022 Self-pay [id number] 2022 Medicare [id number] 2008 Unknown [id number] 1961 Unknown [id number] 2.16.8 40.1.329720.3.579.2.647 1961 Unknown [id number] 2.16.84 0.1.723894.3.579.2.593 1961 Unknown [id number] 2.16.84 0.1.324562.3.579.2.593 1961 Unknown [id number] 2.16.84 0.1.387067.3.579.2.593 1961 Unknown [id number] 2.16.84 0.1.181260.3.579.2.593 1961 Unknown [id number] 2.16.84 0.1.597378.3.579.2.593 1961 Unknown [id number] 2.16.84 0.1.662768.3.579.2.593 1961 Unknown [id number] 2.16.84 0.1.613889.3.579.2.593 1961 Unknown [id number] 2.16.84 0.1.261760.3.579.2.593 1961 Unknown [id number] 2.16.84 0.1.104706.3.579.2.593 1961 Unknown [id number] 2.16.84 0.1.846063.3.579.2.593 1961 Unknown [id number] 2.16.84 0.1.577918.3.579.2.593 1961 Unknown [id number] 2.16.84 0.1.994563.3.579.2.593 1961 Unknown [id number] 2.16.84 0.1.988384.3.579.2.593 1961 Unknown [id number] 2.16.84 0.1.627890.3.579.2.593 1961 Unknown [id number] 2.16.84 0.1.849388.3.579.2.593 1961 Unknown [id number] 2.16.84 0.1.704570.3.579.2.593 1961 Unknown [id number] 2.16.84 0.1.756159.3.579.2.593 1961 Unknown [id number] 2.16.84 0.1.428610.3.579.2.593 1961 Unknown [id number] 2.16.84 0.1.460274.3.579.2.593 1961 Unknown [id number] 2.16.84 0.1.631632.3.579.2.593 1961 Unknown [id number] 2.16.84 0.1.124869.3.579.2.593 1961 Unknown [id number] 2.16.84 0.1.483167.3.579.2.593 1961 Unknown [id number] 2.16.84 0.1.936627.3.579.2.593 1961 Unknown [id number] 2.16.84 0.1.764917.3.579.2.593 1961 Unknown [id number] 2.16. 840.1.840124.3.579.2.196 1961 Unknown [id number] 2.16.84 0.1.640056.3.579.2.9 1961 Unknown [id number] 2.16.84 0.1.969225.3.579.2.1258 1961 Unknown [id number] 2.16.84 0.1.581910.3.579.2.1258 1961 Unknown [id number] 2.16.84 0.1.548324.3.579.2.1258 1961 Unknown [id number] 2.16.84 0.1.765043.3.579.2.1258 1961 Unknown [id number] 2.16.84 0.1.475631.3.579.2.1258 1961 Unknown [id number] 2.16.84 0.1.637218.3.579.2.1258 1961 Unknown [id number] 2.16.84 0.1.639200.3.579.2.1258 1961 Unknown [id number] 2.16.84 0.1.936614.3.579.2.9 1961 Unknown [id number] 2.16.84 0.1.199635.3.579.2.1258 1961 Unknown [id number] 2.16.84 0.1.320918.3.579.2.1258 1961 Unknown [id number] 2.16.84 0.1.758790.3.579.2.1258 1961 Unknown [id number] 2.16.840 .1.269497.3.579.2.1258 1961 Unknown [id number] 2.16.840 .1.421291.3.579.2.1258 1961 Unknown [id number] 2.16.840 .1.080274.3.579.2.1259 1959 Medicare [id number] 1959 Unknown [id number] Medicare Medicare [id number] Unknown [id number] 2.16.8 40.1.066317.3.579.2.531 Unknown [id number] 2.16.8 40.1.653952.3.579.2.531 Social History Date Type Detail Facility Start: 11-18-2022 End: 10-14-2023 Tobacco smoking status NHIS Ex-smoker (finding) [facility] Start: 1960 Sex Assigned At Female [facility] Start: 03-25-2023 End: 08-16-2023 Sex Assigned At [facility] Start: 04-06-1976 End: 04-06-2016 History of tobacco use Current smoker [facility] Start: 04-06-1976 End: 04-06-2016 History of tobacco use Cigarette Smoker [facility] Start: 02-09-2023 End: 08-16-2023 Cigarettes smoked current (pack per day) - Reported 1 [facility] Start: 02-09-2023 End: 10-14-2023 Tobacco use and exposure Smokeless tobacco non-user [facility] Start: 05-18-2023 End: 01-04-2024 Alcohol intake Lifetime non-drinker (finding) [facility] [...] or rent on time? Yes [facility] How often to you hav e a drink containing alcohol? Monthly or less [facility] Do you feel stress - tense, restless, nervous, or anxious, or unable to sleep at night because your mind is troubled all the time - these days [OSQ] To some extent [facility] (I/We) worried wheth er (my/our) food would run out before (I/we) got money to buy more. Sometimes true [facility] Goals Date Patient Goal Desired Activity /State Functional Status Date Assessment Result Facility 11-20-2022 Functional status Patient at Baseline [facility] Work Phone: Mental Status Date Assessment Result Facility 11-20-2022 Cognitive function Cognitive Sta tus Patient is Progressing Toward Baseline [facility] Work Phone: Clinical Notes 10-03-2021 to 05-18-2023 Adelaida Carrion, BRIANA - 05/18/2023 5:49 PM Mynor Carrion, VOLTAGE REGULATOR ASSEMBLER - 05/18/2023 5:47 PM Mynor Carrion, VOLTAGE REGULATOR ASSEMBLER - 05/18/2023 5:20 PM Mynor Carrion, VOLTAGE REGULATOR ASSEMBLER - 05/18/2023 5:17 PM EST Note Date [...] the original note were not included. Michelle Vickers Nataly is a 62 y.o. female presents with [...] (BARIATRIC MULTIVITAMINS/IRON PO) Bariatric Multivitamins/Iron nystatin (Mycostatin) 383164 UNIT/GM powder 1 application , Topical, 2 [...] Anxiety 05/18/2023 Bipolar disorder with severe depression ([facility]) 05/18/2023 Brain vascular malformation Chronic pain disorder Colon polyps Constipation Degenerative cervical disc Degenerative lumbar disc Depression ([facility]) 05/18/2023 Diastolic dysfunction Dizziness 05/18/2023 Dysphagia Fibromyalgia Gastrocnemius equinus GERD (gastroesophageal reflux disease) Heart murmur Hematoma of right breast Hemiparesis, right ([facility]) Hemorrhoid int/external hemorrhoids Hiatal hernia Iron deficiency Left foot pain 03/25/2023 Lower extremity edema Mood disorder ([facility]) mixed mood disorder OSMANY (obstructive sleep apnea) Osteoporosis ([facility]) Overactive bladder Pre-diabetes Primary hypertension ([facility]) 03/25/2023 PTSD (post-traumatic stress disorder) ([facility]) Restless leg Right knee pain Right sided weakness S/P bariatric surgery Shingles Slurred speech Stroke ([facility]) 2018 Tenosynovitis, de Quervain Thoracic [...] goal no changes in meds Morbid obesity ([facility]/HCC) OSMANY (obstructive sleep apnea) - Primary Compliant [...] yearly and prn documented in this encounter [facility] 03-23-2023 Procedure note [facility] 12-19-2022 Evaluation note Encounter Date Diagnosis Assessment Notes Dec, Skin candidiasis (ICD-10 - B37.2) Drink plenty fluids, get plenty of rest. Continue home medications as prescribed. Take the Diflucan as prescribed until gone. Follow-up with your family physician if no improvement in 2 to 3 days [place] [employer] Other 08-17-2023 Discharge summary Author Eduardo bautista [facility] November 20, 2022 6:38am Note Date/Time November 20, 2022 6: 38am [facility] [address] [place] [address] Discharge Summary Signed Patient: Michelle Be MR#: [id number] : 1960 Acct:[id number] Age/Sex: 61 / F Adm Date: 3 Loc: 1S Room: [address] [place] [address]: Gaudencio Monk MD Copies to: [...] at that time.? She reports moving to [place] from [place] in 2011 and was then diagnosed with bipolar disorder at [facility] in [place], where she still follows with a therapist.? Shereports that she has been with 7 therapists in the last 9 years and is currentlycompleting EMDR with her current therapist. Past hospitalizations: Her most recent hospitalization was 5 years ago [facility] in [place] for the same feeling she is experiencing [...] worked since 2010 due to her fibromyalgia.? [facility]. 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 (insert date/time here) [...] signed by Eduardo Monk MD> 11/20/22 0638 [facility] Work Phone: 1(716) 144-304208-16-2023 Progress note Author Eduardo bautista [facility] November 19, 2022 6:25am Note Date/Time November 19, 2022 6: 25am [facility] [address] [place] [address] Psychiatry Progress Note Signed Patient: Michelle Be MR#: [id number] : 1960 Acct:[id number] Age/Sex: 61 / F Adm Date: 3 Loc: Room: [address] [place] [address] Type : ADM IN Attending Dr: Gaudencio [...] signed by Eduardo Monk MD> 11/19/22 0625 [facility] Work Phone: 1(853) 823-214808-15-2023 Progress note Author Eduardo bautista [facility] November 18, 2022 11:01am Note Date/Time November 18, 2022 10 :11am [facility] [address] [place] [address] Psychiatry Progress Note Signed Patient: Michelle Be MR#: [id number] : 1960 Acct:[id number] Age/Sex: 61 / F Adm Date: 3 Loc: 1S Room: [address] [place] [address] Type : ADM IN Attending Dr: Gaudencio [...] by requesting a schedule 2 referring to [facility] for pain management specifically every 4-6 hours [...] signed by MD DA Rangel> 11/18/22 1011 [facility] Work Phone: 1(815) 947-161008-14-2023 History and physical note Author Eduardo bautista [facility] November 17, 2022 12:48pm Note Date/Time November 17, 2022 12 :48pm [facility] [address] [place] [address] Psychiatry H&P Signed Patient: Michelle Be MR#: [id number] : 1960 Acct:[id number] Age/Sex: 61 / F Adm Date: 3 Loc: Room: [address] [place] [address] Type: ADM IN Attending Dr: Gaudencio Monk MD Copies to: MD Adelaida Álvarez VOLTAGE REGULATOR ASSEMBLER-C~ Date of Service: 11/17/2022 HPI History of [...] at that time. She reports moving to [place] from [place] in 2011 and was then diagnosed with bipolar disorder at [facility] in [place], where she still follows with a therapist. Shereports that she has been with 7 therapists in the last 9 years and is currentlycompleting EMDR with her current therapist. Past hospitalizations: Her most recent hospitalization was 5 years ago [facility] in [place] for the same feeling she is experiencing [...] worked since 2010 due to her fibromyalgia. [facility]. Relationships: Reports [...] equal bilaterally. CN XII: Tongue protrusion midline [facility] Medical History (Updated 11/17/22 @ 10:42 [...] signed by Eduardo Monk MD> 11/17/22 1248 [facility] Work Phone: 1(396) 773-563703-23-2023 NoteCONSULTATION CONSULTATION DATE: 06/26/2022 To: Nurse Carrion [...] L5-S1 facet joint injection under fluoroscopic guidance.[facility] [id number] NotePROCEDURE: XR SHOULDER RT 2V or > [...] Electronically authenticated by: KINGSLEY CLEMENTS Date: 2022-05-09 09:21[facility]01-23-2023 NotePROCEDURE: XR WRIST LT MIN [...] Electronically authenticated by: KINGSLEY CLEMENTS Date: 2022-04-28 13:31[facility]12-29-2022 NoteCONSULTATION CONSULTATION DATE: 04/03/2022 HISTORY OF PRESENT [...] 4 mg q.h.s., Neurontin per her PCP, Zurdo. She recently got her medical marijuana card, [...] her in three months, unless otherwise indicated.[facility] [id number] NoteCONSULTATION CONSULTATION DATE: 01/02/2022 This is a [...] [facility] in [place] for the compounded cream. She needs a [...] in three months' time unless otherwise indicated.[facility] [id number] NotePROCEDURE: XR ANKLE RT MIN 3 VIEWS, [...] authenticated by: KINGSLEY CLEMENTS Date: 2022-01-01 13:11[facility] [id number] NotePROCEDURE: XR ANKLE RT MIN 3 VIEWS, [...] authenticated by: KINGSLEY CLEMENTS Date: 2022-01-01 13:11[facility]08-18-2022 NotePROCEDURE: XR FOOT RT MIN 3 VIEWS HISTORY: Pain in right foot , chronic COMPARISON: XR foot right 2020 FINDINGS: BONES:No fracture, dislocation, bone lesion. Small calcaneal degenerative enthesophytes. SOFT TISSUES:No visible soft tissue swelling. EFFUSION:None visible. OTHER: Negative. IMPRESSION: 1. No acute bone abnormality or significant degenerative joint disease. Electronically authenticated by: KINGSLEY CLEMENTS Date: 2021-11-21 16:13[facility]06-30-2022 NoteCONSULTATION CONSULTATION DATE: 10/03/2021 This [...] patient agrees with the plan of care. [facility] Signed and Approved by: ZELDA MCDANIEL . 10/10/2021 10:22:00[facility]* Diagnosis Onset Date Resolution Status Allergies acute Bipolar 2 disorder acute Hypertension acute Morbid obesity with BMI of 45.0-49.9, adult acute OSMANY (obstructive sleep apnea) acute Restless legs syndrome acute [facility] Work Phone: Evaluation noteNo InformationNort iCoolhunt Other Evaluation noteNo assessment information available [facility] Work Phone: Evaluation note* Diagnosis [...] (CMS/HCC) Unspecified episodic mood disorder Primary hypertension ([facility]/HCC) Unspecified essential hypertension Left hip pain Pain in joint, pelvic region and thigh Open wound of anterior abdominal wall, initial encounter documented [facility] Diagnosis Acute cystitis with hematuria- Primary documented in this encounter [facility] and physical note Author Jace Graham [facility] March 23, 2023 11:21am Note Date/Time March 23, 2023 11:21am [facility] [address] [place] [address] Gastroenterology H&P Signed Patient: Michelle Be MR#: [id number] : 1960 Acct:[id number] Age/Sex: 62 / F Adm Date: 3 Loc: Room: Type: [facility] Attending Dr: Jace Graham MD Copies [...] signed by Jace Graham MD> 03/23/23 [facility] Work Phone: History general Narrative [...] see above surg Hospitalization History stroke 2018 [place] Other Hospital Discharge instructions Additional Instructions Regular Diet [facility] Discharge instructions Additional [...] years. -Follow up with PCP. -Office number [phone].[facility] Work Phone: Summary Purpose Family History Relationship [...] and content) DATE CREATED AUTHOR 02/18/2019 [facility] DATE CREATED AUTHOR AUTHOR'S ORGANIZ ATION 11/15/2021 [facility] DATE CREATED AUTHOR AUTHOR'S ORGANIZ ATION 08/16/2022 [facility] DATE CREATED AUTHOR AUTHOR'S ORGANIZ ATION 08/11/2023 [facility] DATE CREATED AUTHOR AUTHOR'S ORGANIZ ATION 12/23/2023 [facility] DATE CREATED AUTHOR AUTHOR'S ORGANIZ ATION 01/04/2024 [facility] EPIC Care Teams (unrecognized [...] JOHANN Other Provider Active Elzbieta Kim , RN [...] MD Other Provider Active Joellen Le , VOLTAGE REGULATOR ASSEMBLER-C Other Provider Active Severo Yancey MD Other Provider Active Rao Webber MD Other Provider Active Yuan Shi MD Other Provider Active Delroy Ramirez MD Other Provider Active Berta Comer , DO Other Provider Active Negrito Ruiz , DO Other Provider Active Lacho Singh , DO Other Provider Active Rachana Hobson , SERVICER Other Provider Active Rob Lake , DO Other Provider Active Jeff Alvarez MD Other Provider Active Urmila Rinaldi , SERVICER Other Provider Active Bina Mayberry , SERVICER Other Provider Active Mir Bradford MD Other Provider Active Te Da Silva MD Other Provider Active Debra Landaverde RN Other Provider Active Team Status: Inactive Member Role Status Dates Adelaida Carrion Primary Care Provider Active Jace Graham MD Attending Provider Active Control Equipment Electrician Relationship Specialty Start Date End Date José Luis Roberts MD [address] [place] [id number] PCP - General Family Medicine 05/18/23 Adelaida Carrion NP [address] [place] [phone] Referring Physician Nurse Practitioner 10/14/22 Control Equipment Electrician Relationship Specialty Start Date End Date José Luis Roberts MD [address] [place] [address] PCP - General Family Medicine 05/18/23 Adelaida Carrion NP [address] [place] [phone] Referring Physician Nurse Practitioner 10/14/22 Control Equipment Electrician Relationship Specialty Start Date End Date José Luis Roberts MD [address] [place] [address] PCP - General Family Medicine 05/18/23 Adelaida Carrion NP [address] [place] [address] Referring Physician Nurse Practitioner 10/14/22 Control Equipment Electrician Relationship Specialty Start Date End Date José Luis Roberts MD [address] [place] [address] PCP - General Family Medicine 05/18/23 Adelaida Carrion NP Referring Physician Nurse Practitioner 10/14/22 Miriam Suarez DO [address] [place] [address] Referring Physician Neurology 06/29/23 Diana De Leon LPN Licensed Practical Nurse Family Medicine 12/18/23 REASON FOR VISIT (unrecogniz ed section and [...] BE BASED ON THE PRIMARY CLINICAL RECORDS. [facility]. provides no warranty or guarantee of the accuracy or completeness of information in this document.
[2024-01-19 06:47] VITALS: BP 127/81; PULSE 62; TEMP 36.8; O2SAT 96
[2024-01-19 07:44] VITALS: BP 143/69; PULSE 60; O2SAT 93
[2024-01-19 07:45] VITALS: BP 151/71; PULSE 61; O2SAT 94
[2024-01-19] MEDS: BUPIVACAINE HCL 0.25% PF 25 MG/10 ML VIAL 6 ML INJ (07:47)
--- NOTE | 2024-01-19 09:01 | W.PM.PROCNOT ---
Date of procedure: 01/19/24 Pre-op diagnosis: Thoracic spondylosis Post-op diagnosis: same as pre-op Procedure: Bilateral Thoracic 01/14, 02/15 medial branch block Preop diagnosis includes pain secondary to spondylosis, Postop diagnosis same Under fluoroscopic guidance Solution injected: 2milliliters Marcaine 0.25% Anesthesia :none Immediate complications none Time out process compliant After informed consent obtained from the patient placed in the Prone proposition . area was prepped and draped in a sterile fashion using betadine .25 gauge spinal needle inserted over each of the above mentioned target areas . [place] were directed towards the target under fluoroscopic guidance . after encountering each of the targets , no indication of intravascular intraneuronal or intrathecal needle tip placement. Then 0 .5 to 1 Milliliter was injected at each level. [place] removed postoperatively. patient transferred to recovery in stable condition to be discharged home after meeting criteria Anesthesia: Local Surgeon: Tejal Montaño Condition: stable
== END 2024-01-19 07:50 | disposition home or self-care (01) ==
LOC: SURGOUT 06:23
PROVIDERS: PCP Nurse Practitioner; Visit Provider Anesthesiology Pain Medicine
DX: M47.814 Spondylosis without myelopathy or radiculopathy, thoracic region (principal)
CPT/HCPCS: 64490; 64491; J0665

== ENCOUNTER 2024-01-25 11:54 | Outpatient (OUT) | payer MEDICARE, SELFPAY ==
--- OUTSIDE RECORDS SUMMARY | 2024-01-25 12:03 | XMS_ITS | CCD ---
Author Organization [facility] Care Team Providers Care Financial Retirement Plan Specialist Name Role Phone EBRAHEIM, SUKI Admitting Unavailable EBRAHEIM, SUKI Attending Unavailable AICHHOLZ, ADELAIDA Referring Unavailable AICHHOLZ, ADELAIDA Primary Care Unavailable NV Procedure Practitioner Unavailab SUKI Jacob Surgeon Unavailable NV Procedure Practitioner Unavailab CHAPARRITA Goncalves Surgeon Unavailable BRIDGETTE MACEDO Admitting Unavailable BRIDGETTE MACEDO Attending Unavailable AICHHOLZ, COMMERCIAL OR INSTITUTIONAL CLEANER ADELAIDA Primary Care Unavailable ZIMMER ., DR FINA Iverson Admitting Unavailable ZIMMER ., DR FINA Iverson Attending Unavailable AICHHOLZ, COMMERCIAL OR INSTITUTIONAL CLEANER ADELAIDA Primary Care Unavailable MCDANIEL ., ZELDA Consulting Unavailable LAKSHMIPATHY ., NARENDRANATH Consulting Paula vailable LAKSHMIPATHY ., NARENDRANATH Admitting Paula vailable LAKSHMIPATHY ., NARENDRANATH Attending Paula vailable AICHHOLZ, COMMERCIAL OR INSTITUTIONAL CLEANER ADELAIDA Primary Care Unavailable LAKSHMIPATHY ., NARENDRANATH Consulting Paula vailable AICHHOLZ, COMMERCIAL OR INSTITUTIONAL CLEANER ADELAIDA Primary Care Unavailable MARKER ., DR CHAUDHRY Admitting Unavailable MARKER ., DR CHAUDHRY Attending Unavailable MARKER ., DR CHAUDHRY Consulting Unavailable AICHHOLZ, COMMERCIAL OR INSTITUTIONAL CLEANER ADELAIDA Admitting Unavailable AICHHOLZ, COMMERCIAL OR INSTITUTIONAL CLEANER ADELAIDA Attending Unavailable AICHHOLZ, COMMERCIAL OR INSTITUTIONAL CLEANER ADELAIDA Primary Care Unavailable ZIMMER ., DR FINA Iverson Admitting Unavailable ZIMMER ., DR FINA Iverson Attending Unavailable AICHHOLZ, COMMERCIAL OR INSTITUTIONAL CLEANER ADELAIDA Primary Care Unavailable MCDANIEL ., ZELDA Consulting Unavailable ZIMMER ., DR FINA Iverson Admitting Unavailable ZIMMER ., DR FINA Iverson Attending Unavailable AICHHOLZ, COMMERCIAL OR INSTITUTIONAL CLEANER ADELAIDA Primary Care Unavailable MCDANIEL ., ZELDA Consulting Unavailable AICHHOLZ, COMMERCIAL OR INSTITUTIONAL CLEANER ADELAIDA Admitting Unavailable AICHHOLZ, COMMERCIAL OR INSTITUTIONAL CLEANER ADELAIDA Attending Unavailable AICHHOLZ, COMMERCIAL OR INSTITUTIONAL CLEANER ADELAIDA Primary Care Unavailable AICHHOLZ, COMMERCIAL OR INSTITUTIONAL CLEANER ADELAIDA Consulting Unavailable AICHOLZ, COMMERCIAL OR INSTITUTIONAL CLEANER ADELAIDA Admitting Unavailable AICHHOLZ, COMMERCIAL OR INSTITUTIONAL CLEANER ADELAIDA Attending Unavailable AICHOLZ, [facility] ADELAIDA Primary Care Unavailable AICHHOLZ, COMMERCIAL OR INSTITUTIONAL CLEANER ADELAIDA Consulting Unavailable MISC, DR COTE Admitting Unavailable MISC, DR COTE Attending Unavailable AICHOLZ, [facility] ADELAIDA Primary Care Unavailable AICHHOLZ, COMMERCIAL OR INSTITUTIONAL CLEANER ADELAIDA Consulting Unavailable ELYSSA, DR COTE Consulting Unavailable STARR, DR KINGSLEY Atkins Consulting Unavailable ZIMMER ., DR FINA Iverson Admitting Unavailable ZIMMER ., DR FINA Iverson Attending Unavailable AICHOLZ, [facility] ADELAIDA Primary Care Unavailable MCDANIEL ., ZELDA Consulting Unavailable ZIMMER ., DR FINA Iverson Admitting Unavailable ZIMMER ., DR FINA Iverson Attending Unavailable [facility] Primary Care Unavailable ZIMMER ., DR FINA Iverson Consulting Unavailable OMID LAY Consulting Unavailable ZIMMER ., DR FINA Iverson Admitting Unavailable ZIMMER ., DR FINA Iverson Attending Unavailable [facility], [facility] Primary Care Unavailable MCDANIEL ., ZELDA Consulting Unavailable [facility] Primary Care Unavailable HALKER ., ARIAN Admitting Unavailable HALKER ., ARIAN Attending Unavailable LAKSHMIPATHY ., NARENDRANATH Consulting Paula vailable HALKER ., ARIAN Consulting Unavailable LAKSHMIPATHY ., NARENDRANATH Admitting Paula vailable LAKSHMIPATHY ., NARENDRANATH Attending Paula vailable [facility], [facility] Primary Care Unavailable LAKSHMIPATHY ., NARENDRANATH Consulting Paula vailable AICHOLZ, COMMERCIAL OR INSTITUTIONAL CLEANER ADELAIDA Admitting Unavailable AICHOLZ, COMMERCIAL OR INSTITUTIONAL CLEANER ADELAIDA Attending Unavailable AICHOLZ, COMMERCIAL OR INSTITUTIONAL CLEANER ADELAIDA Primary Care Unavailable AICHHOLZ, COMMERCIAL OR INSTITUTIONAL CLEANER ADELAIDA Consulting Unavailable BRIDGETTE MACEDO Admitting Unavailable BRIDGETTE MACEDO Attending Unavailable AICHOLZ, COMMERCIAL OR INSTITUTIONAL CLEANER ADELAIDA Primary Care Unavailable STARR, DR KINGSLEY Atkins Consulting Unavailable BRIDGETTE MACEDO Consulting Unavailable GILMER NEVES Admitting Unavailable GILMER NEVES Attending Unavailable PURA, GILMER Consulting Unavailable AICHOLZ, COMMERCIAL OR INSTITUTIONAL CLEANER ADELAIDA Primary Care Unavailable AICHOLZ, COMMERCIAL OR INSTITUTIONAL CLEANER ADELAIDA Primary Care Unavailable DR WILLI RINALDI Admitting Unavailable DEEJAY, DR WILLI Atkins Attending Unavailable DR WILLI RINALDI Consulting Unavailable AICHOLZ, COMMERCIAL OR INSTITUTIONAL CLEANER ADELAIDA Primary Care Unavailable ALMAZ ., DANNY Admitting Unavailable ALMAZ ., DANNY Attending Unavailable DR KINGSLEY CLEMENTS Consulting Unavailable ALMAZ ., DANNY Consulting Unavailable LAKSHMIPATHY ., NARENDRANATH Admitting Paula vailable LAKSHMIPATHY ., NARENDRANATH Attending Paula vailable AICHHOLZ, COMMERCIAL OR INSTITUTIONAL CLEANER ADELAIDA Primary Care Unavailable AICHHOLZ, COMMERCIAL OR INSTITUTIONAL CLEANER ADELAIDA Admitting Unavailable AICHHOLZ, COMMERCIAL OR INSTITUTIONAL CLEANER ADELAIDA Attending Unavailable AICHHOLZ, COMMERCIAL OR INSTITUTIONAL CLEANER ADELAIDA Primary Care Unavailable AICHHOLZ, COMMERCIAL OR INSTITUTIONAL CLEANER ADELAIDA Admitting Unavailable AICHHOLZ, COMMERCIAL OR INSTITUTIONAL CLEANER ADELAIDA Attending Unavailable AICHHOLZ, COMMERCIAL OR INSTITUTIONAL CLEANER ADELAIDA Primary Care Unavailable AICHHOLZ, COMMERCIAL OR INSTITUTIONAL CLEANER ADELAIDA Consulting Unavailable ZIEBER, DR KINGSLEY Atkins Consulting Unavailable HALKER ., ARIAN Admitting Unavailable HALKER ., ARIAN Attending Unavailable AICHHOLZ, COMMERCIAL OR INSTITUTIONAL CLEANER ADELAIDA Primary Care Unavailable Aichholz, Adelaida J Primary Care Provider [phone] MD Gaudencio Monk Admit Provider MD Gaudencio Monk Attending Provider [phone] JOHANN Vieira Other Provider Unavailable JOHANN Pina Other Provider Unavailable JOHANN Hurtado Other Provider Unavailable JOHANN Crooks Other Provider Unavailable JOHANN Mejias Other Provider Unavailable JOHANN Kim Other Provider Unavailable MD Walker Pringle Other Provider Dilans, [employer] Adelaida Huddleston Other Provider DO Jessica Murillo Other Provider MD Obdulio Bragg Other Provider DO Joon Cristina Other Provider MD Torin Robert Other Provider MD Dawn Barrera Other Provider Karlene ANP- Mari Other Provider MD Sofi Almanzar Other Provider [phone] MD Sharad Gallegos Other Provider MD [...] Graham Unavailable Adelaida Carrion Primary Care Provider [phone] MD Jace Graham Attending Provider Sheyla WARREN, Adelaida Unavailable José Luis Roberts MD Primary Care Provider Jamee JAIMESSyeda Attending Unavailable Jace Graham Admitting [...] (disorder) 04-06-19 14 rash [facility] Repository (3 sources) levETIRAcetam; Translations: [KEPPRA] Drug Allergy 07-02-19 19 [facility] Repository (3 sources) milnacipran; Translations: [SAVELLA] Drug Allergy 03-14-20 13 [facility] Repository (1 source) Penicillin; Translations: [PENICILLIN] Drug Allergy 01-16-20 18 [facility] Repository (5 sources) Prochlorperazi ne; Translations: [COMPAZINE] Drug Allergy 03-14-20 13 agitation [facility] Repository (14 sources) Tetracycline; Translations: [TETRACYCLINE] Drug Allergy 04-06-19 13 Hives, Unknown [facility] Repository (4 sources) Penicillins Drug allergy (disorder) 04-06-19 13 Unknown Reaction [facility] Repository (11 sources) levETIRAcetam; Translations: [levetiracetam ] Drug Allergy 12-13-19 22 Hallucinations, Other [facility] (11 sources) milnacipran; Translations: [milnacipran] Drug Allergy 12-13-19 22 hives, Hallucinations, Other, Unknown [facility] (9 sources) Prochlorperazi ne; Translations: [prochlorperaz ine] Drug Allergy 12-13-19 22 Unknown, Other [facility] (2 sources) Penicillin G Drug Allergy as a child Solutionary [facility] Other (2 sources) Tetracaine Drug Allergy Unknown Solutionary [facility] Other (6 sources) Penicillins Drug Intolerance 12-13-[address] [facility] (6 sources) Other Propensity to adverse reactions 12-13-19 Other [facility] (6 sources) Wound Dressing Adhesive Drug Allergy 09-20-19 23 Rash, Unknown [facility] (1 source) Penicillin Drug Allergy 12-20-19 23 [facility] Repository (1 source) Penicillins Drug allergy (disorder) 03-23-20 23 [facility] Repository (1 source) Tetracaine Drug Allergy 12-20-19 23 [facility] Repository (2 sources) Eszopiclone Drug Allergy 09-21-[address] [facility] Medications Current Medications Medication Drug Class(es) Dates Sig (Normalized) Sig (Original) amLODIPine 10 mg oral tablet (10 sources) Dihydropyridine Calcium Channel Jim Start: 01-04-2024 [...] Orally Active biotin 5 mg oral tablet (8 sources) biotin 5 MG tabl et Pt taking OTC ([email or web address]) Active biotin 1 MG caps ule Biotin [...] 2022 7:25pm Calcium Citrate / Vitamin D (6 sources) Calcium Citrate- Vitamin D (CITRACAL + D PO) Pt taking OTC ([facility]) Active Calcium Citrate- Vitamin D (CITRACAL + D PO) Citracal + D 0 Active cariprazine 4.5 mg oral capsule (10 sources) Atypical Antipsychotic Start: 09-21-2023 take 1 capsule by mouth once daily Cariprazine HCl (Vraylar) 4.5 MG capsule Take 4.5 mg by mouth Daily 09/21/2023 Active Start: 11-17-2022 take 1 capsule by [facility] once daily Cariprazine (Vraylar) 4.5 mg capsule Active 4.5 MG PO Daily November 16, 2022 11:00pm carvedilol 12.5 mg oral tablet (6 sources) alpha-Adrenergic Jim, beta-Adrenergic Jim Start: 01-04-2024 [...] Active cetirizine hydrochloride 10 mg oral tablet (10 sources) Histamine-1 Receptor Antagonist Start: 01-04-2024 End: [...] DULoxetine 60 mg delayed release oral capsule (12 sources) Serotonin and Norepinephrine Reuptake Inhibitor Start: [...] DAY Active fluconazole 150 mg oral tablet (12 sources) Azole Antifungal Start: 11-27-2023 fluconazole ( [...] propionate 0.05 mg/actuat metered dose nasal spray (10 sources) Corticosteroid Start: 01-04-2024 End: 02-03-2024 take [...] 0 Active gabapentin 300 mg oral capsule (16 sources) Anti-epileptic Agent Start: 10-14-2023 End: 04-10-2024 take 1 capsule by mouth in the morning gabapentin (Neurontin) 300 MG capsule Indications: Restless leg Take 1 capsule (300 mg) by mouth in the morning and 1 capsule (300 mg) before bedtime. 60 capsule 2 01/11/2024 04/10/2024 Active Start: 05-28-2018 End: 11-17-2022 take 1200 [...] Active losartan potassium 100 mg oral tablet (10 sources) Angiotensin 2 Receptor Jim Start: 4 End: 4 take 1 tablet by mouth once daily losartan (Cozaar) 100 MG tablet Indications: Essential (primary) hypertension (CMS/HCC) Take 1 tablet (100 mg) by mouth Daily 90 tablet 1 01/04/2024 04/03/2024 Active Start: 11-17-2022 take 100 mg by mouth once lissett y Losartan Active 100 MG PO Daily November 16, 2022 11:00pm Magnesium (8 sources) Magnesium 400 MG capsule Pt taking OTC([employer]) Active Magnesium 400 MG capsule magnesium 0 Active take 1 tablet by mouth once lissett y Magnesium 400 MG 1 tablet with a meal Orally Once a day Active melatonin 10 mg oral tablet (5 sources) Start: 03-23-2023 take 20 mg by [...] Active Multiple Vitamins-Minerals ( BARIATRIC MULTIVITAMINS/IRON PO) (6 sources) Multiple Vitamin s-Minerals (BARIATRIC MULTIVITAMINS/IRON PO) Pt taking OTC ([employer]) Active Multiple Vitamin s-Minerals (BARIATRIC MULTIVITAMINS/IRON PO) Bariatric Multivitamins/Iron 0 Active Opjnaohvaqhe-Ecf-Mwde-Fa-Vit K (Bariatric Multivitamins) 45 mg iron- 800 mcg-120 mcg Capsule (2 sources) Start: 11-17-2022 take 1 capsule by mouth once daily Gfxizxvqzicq-Ruq-Fvdg-Fa-Vit K (Bariatric Multivitamins) 45 mg iron- 800 mcg-120 mcg Capsule Active 1 CAP PO Daily November 16, 2022 11:00pm Start: 11-17-2022 take 1 capsule by mo ut once daily Wkythgyyqlob-Ddm-Ebxs-Fa-Vit K (Bariatri c Multivitamins) 45 mg iron- 800 mcg-120 mcg Capsule Active 1 CAP PO Daily November 17, 2022 12:00am nystatin 100 unt/mg topical powder (6 sources) Polyene Antifungal nystatin (Myc ostatin) 809012 UNIT/GM powder Apply 1 application topically in [...] 2022 11:00pm rOPINIRole 4 mg oral tablet (10 sources) Nonergot Dopamine Agonist Start: 10-14-2023 take [...] 06/02/2022 Active spironolactone 25 mg oral tablet (2 sources) Aldosterone Antagonist Start: 12-30-2023 End: 01-29-2024 take 2 tablets by mouth once daily spironolactone (Aldactone) 25 MG tablet Indications: Lower extremity edema Take 2 tablets (50 mg) by mouth Daily 60 tablet 2 12/30/2023 01/29/2024 Active tiZANidine 4 mg oral tablet (10 sources) Central alpha-2 Adrenergic Agonist Start: 12-12-2023 [...] Active traZODone hydrochloride 150 mg oral tablet (12 sources) Serotonin Reuptake Inhibitor Start: 11-17-2022 take [...] Date Documented Date Episodic/Chronic Acute cerebrovascular disease (6 sources) Cerebrovascular accident; Translations: [Cerebral infarction, unspecified] Onset: 04-06-19 18 05-18-2023 Chronic Allergic reactions (4 sources) Unspecified contact dermatitis, unspecified cause; Translations: [Allergic condition] Onset: 09-14-19 22 11-18-2022 Episodic Anxiety disorders (14 sources) Post-traumatic stress disorder, unspecified; Translations: [Anxiety disorder, unspecified] Onset: 04-29-19 23 05-18-2023 Chronic Cardiac and circulatory congenital anomalies (10 sources) Cerebrovascular disease; Translations: [Other malformations of cerebral vessels] Onset: 05-18-19 24 05-18-2023 Chronic Diabetes mellitus without complication (2 sources) Diabetes mellitus; Translations: [Type 2 diabetes mellitus without complications] 05-31-2018 Chronic Disorders of lipid metabolism (1 source) Pure hypercholesterolemia, unspecified; Translations: [PURE HYPERCHOLESTEROLEMIA UNSPEC] Onset: 07-17-19 Chronic Esophageal disorders (9 sources) Gastro-esophageal reflux disease without esophagitis; Translations: [Gastroesophageal reflux disease] Onset: 07-17-1905-18-2023 Chronic Essential hypertension (16 sources) Essential (primary) hypertension; Translations: [Hypertensive disorder] Onset: 07-17-19 Chronic Mood disorders (20 sources) Bipolar disorder, current episode depressed, severe, without psychotic features; Translations: [Unspecified mood [affective] disorder] Onset: 11-23-19 22 11-17-2022 Chronic Osteoarthritis (7 sources) Primary osteoarthritis, right ankle and foot; Translations: [Osteoarthritis of knee] Onset: 10-03-19 18 03-25-2023 Chronic Osteoporosis (6 sources) Osteoporosis; Translations: [Age-related osteoporosis without current pathological fracture] Onset: 05-18-19 24 05-18-2023 Chronic Other and ill-defined heart disease (6 sources) Diastolic dysfunction; Translations: [Other ill-defined heart diseases] Onset: 05-18-19 24 05-18-2023 Chronic Other connective tissue disease (1 source) Fibromyalgia; Translations: [FIBROMYALGIA] Onset: 07-17-19 Episodic Other connective tissue disease (4 sources) Radial styloid tenosynovitis [de Quervain]; Translations: [RADIAL STYLOID TENOSYNOVITIS] Onset: 06-12-19 Episodic Other connective tissue disease (2 sources) Weakness of face muscles; Translations: [Facial weakness] 11-18-2022 Episodic Other diseases of bladder and urethra (8 sources) Overactive bladder; Translations: [Overactive bladder] Onset: 05-18-19 24 05-18-2023 Chronic Other gastrointestinal disorders (1 source) Bariatric surgery status; Translations: [BARIATRIC SURGERY STATUS] Onset: 08-01-19 Episodic Other hereditary and degenerative nervous system conditions (8 sources) Restless legs; Translations: [Restless legs syndrome] [...] Onset: 04-03-20 Chronic Other nervous system disorders (8 sources) Chronic pain syndrome; Translations: [Chronic pain syndrome] Onset: 05-18-19 24 05-18-2023 Chronic Other nervous system disorders (2 sources) Metabolic encephalopathy; Translations: [Metabolic encephalopathy] Onset: 08-26-19 24 12-08-2023 Chronic Other nervous system disorders (2 sources) Lesion of brain; Translations: [Disorder of brain, unspecified] Onset: 10-11-19 24 10-11-2023 Chronic Other nervous system disorders (2 sources) Carpal tunnel syndrome of right wrist; Translations: [Carpal tunnel syndrome, right upper limb] Onset: 10-11-1910-11-2023 Chronic Other nervous system disorders (2 sources) Disorder of brain; 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] [...] Chronic Other nutritional; endocrine; and metabolic disorders (8 sources) Morbid obesity; Translations: [Morbid (severe) obesity due to excess calories] Onset: 03-25-20 23 03-25-2023 Chronic Other upper respiratory disease (6 sources) Allergic rhinitis; Translations: [Allergic rhinitis, unspecified] Onset: 05-18-1905-18-2023 Chronic Paralysis (6 sources) Right hemiparesis; Translations: [Hemiplegia, unspecified affecting right dominant side] Onset: 05-18-1905-18-2023 Chronic Residual codes; unclassified (1 source) Sleep apnea, unspecified; Translations: [SLEEP APNEA UNSPECIFIED] Onset: 07-17-19 Chronic Residual codes; unclassified (10 sources) Obstructive sleep apnea syndrome; Translations: [Obstructive [...] pain ] Onset: 08-24-1911-20-2022 Episodic Substance-related disorders (8 sources) Tobacco dependence syndrome; Translations: [Nicotine dependence, unspecified, uncomplicated] Onset: 05-18-1905-18-2023 Chronic Unclassified (3 sources) LOW BACK PAIN, UNSPECIFIED; Translations: [LOW BACK PAIN, UNSPECIFIED] Onset: 06-30-19 Unclassified (1 source) Encounter for screening for malignant neoplasm of colon; Translations: [Encounter for screening for malignant neoplasm of colon] Onset: 03-23-20 Past or Other Problems Problem Classification Problem Date Documented Da te Episodic/Chronic Abdominal hernia (6 sources) Hiatal hernia; Translations: [Diaphragmatic hernia without obstruction or gangrene] Onset: 05-18-2023 05-18-2023 Episodic Conditions associated with dizziness or vertigo (12 sources) Benign paroxysmal positional vertigo; Translations: [Benign paroxysmal vertigo, unspecified ear] Onset: 05-18-2023 05-18-2023 Episodic Deficiency and other anemia (6 sources) Anemia; Translations: [Anemia, unspecified] Onset: 05-18-2023 05-18-2023 Episodic Diabetes mellitus without complication (9 sources) Prediabetes; Translations: [Prediabetes] Onset: 07-31-2022 05-18-2023 Episodic E Codes: Cut/pierceb (1 source) Contact with scissors, initial encounter; Translations: [CONTACT WITH SCISSORS INITIAL ENC] Onset: 02-21-2022 Episodic Fracture of lower limb (6 sources) Closed fracture of patella; Translations: [Unspecified fracture of unspecified patella, initial encounter for closed fracture] Onset: 02-04-2018 Resolved: 10-21-2023 03-25-2023 Episodic Gout and other crystal arthropathies (7 sources) Gout, unspecified; Translations: [Gouty arthritis of right foot] Onset: 11-22-2021 Resolved: 08-17-2023 05-18-2023 Chronic Heart valve disorders (6 sources) Heart murmur; Translations: [Cardiac murmur, unspecified] Onset: 05-18-2023 05-18-2023 Episodic Hemorrhoids (6 sources) Hemorrhoids; Translations: [Unspecified hemorrhoids] Onset: 05-18-2023 05-18-2023 Episodic Immunizations and screening for infectious disease (1 source) Encounter for immunization; Translations: [ENCOUNTER FOR IMMUNIZATION] Onset: 02-21-2022 Episodic Influenza (2 sources) Influenza; Translations: [Influenza due to unidentified influenza virus with other respiratory manifestations] Onset: 07-14-2023 Resolved: 10-21-2023 10-21-2023 Episodic Malaise and fatigue (8 sources) Asthenia; Translations: [Weakness] Onset: 05-18-2023 Resolved: 05-18-2023 05-31-2018 Episodic Mood disorders (6 sources) Mood disorders; Translations: [DEPRESSION UNSPECIFIED] Onset: 04-29-2022 05-18-2023 Mycoses (8 sources) Candidiasis of skin and nail; Translations: [Candidiasis of skin] Onset: 05-18-2023 Episodic Nonmalignant breast conditions (6 sources) Hematoma of right breast; Translations: [Other specified disorders of breast] Onset: 05-18-2023 Resolved: 05-18-2023 05-18-2023 Episodic Nutritional deficiencies (3 sources) Iron deficiency; Translations: [Vitamin deficiency] Onset: 07-31-2022 07-23-2023 Episodic Open wounds of extremities (4 sources) Laceration without foreign body of left middle finger without damage to nail, initial encounter; Translations: [LAC W/O FB LT MF W/O DMG NAIL INIT] Onset: 02-20-2022 Episodic Open wounds of head; neck; and trunk (7 sources) Open wound of anterior abdominal wall ; Translations: [Unspecified open wound of abdominal wall, unspecified quadrant without penetration into peritoneal cavity, initial encounter] Onset: 05-18-2023 Resolved: 10-21-2023 05-18-2023 Episodic Other aftercare (1 source) Other shelter (current) drug therapy; Translations: [OTH NURSING HOME CURRENT DRUG THERAPY] Onset: 04-29-2022 Episodic Other and unspecified benign neoplasm (6 sources) Polyp of colon; Translations: [Polyp of [...] Onset: 12-18-2021 Episodic Other connective tissue disease (6 sources) Pain in left foot; Translations: [Pain in left foot] Onset: 03-25-2023 Resolved: 08-17-2023 03-25-2023 Episodic Other connective tissue disease (6 sources) Patellar tendonitis; Translations: [Patellar tendinitis, unspecified knee] Onset: 11-20-2016 03-25-2023 Episodic Other connective tissue disease (6 sources) Radial styloid tenosynovitis; Translations: [Radial styloid tenosynovitis [de Quervain]] Onset: 05-18-2023 05-18-2023 Episodic Other connective tissue disease (6 sources) Fibromyalgia; Translations: [Fibromyalgia] Onset: 05-18-2023 05-18-2023 Episodic Other connective tissue disease (2 sources) Tendinitis of right forearm; Translations: [Other enthesopathies, not elsewhere classified] Onset: 10-11-2023 10-11-2023 Episodic Other connective tissue disease (2 sources) Other symptoms and signs involving the musculoskeletal system; Translations: [Other musculoskeletal symptoms referable to limbs] Onset: 10-11-2023 10-11-2023 Episodic Other gastrointestinal disorders (6 sources) History of bariatric surgical procedure; Translations: [Bariatric surgery status] Onset: 05-18-2023 05-18-2023 Episodic Other gastrointestinal disorders (6 sources) Dysphagia; Translations: [Dysphagia, unspecified] Onset: 05-18-2023 05-18-2023 Episodic Other gastrointestinal disorders (6 sources) Constipation; Translations: [Constipation, unspecified] Onset: 05-18-2023 Resolved: 08-17-2023 05-18-2023 Episodic Other lower respiratory disease (2 sources) Cough; Translations: [Acute cough] Onset: 07-14-2023 Resolved: 10-21-2023 10-21-2023 Episodic Other lower respiratory disease (2 sources) Postviral cough; Translations: [Post-viral cough syndrome] Onset: 07-23-2023 Resolved: 10-21-2023 10-21-2023 Episodic Other nervous system disorders (6 sources) Slurred speech; Translations: [Slurred speech] Onset: [...] Onset: 12-16-2021 Episodic Other non-traumatic joint disorders (12 sources) Pain in right knee; Translations: [Pain in joint, lower leg] Onset: 11-20-2016 03-25-2023 Episodic Other non-traumatic joint disorders (7 sources) Hip pain; Translations: [Pain in left hip] Onset: 05-18-2023 05-18-2023 Episodic Other nutritional; endocrine; and metabolic disorders (6 sources) Excess panniculus of abdomen; Translations: [Localized adiposity] Onset: 03-25-2023 Resolved: 05-18-2023 05-18-2023 Chronic Other screening for suspected conditions (not mental disorders or infectious disease) (4 sources) Patient encounter status; Translations: [Encounter for [...] EDEMA] Onset: 03-19-2022 Episodic Residual codes; unclassified (8 sources) Edema of lower extremity; Translations: [Localized edema] Onset: 05-18-2023 Resolved: 10-05-2023 05-18-2023 Episodic Residual codes; unclassified (2 sources) At risk of polypharmacy; Translations: [Other specified personal risk factors, not elsewhere classified] Onset: 08-26-2023 09-21-2023 Episodic Residual codes; unclassified (2 sources) Bilateral lower limb edema; Translations: [Localized edema] Onset: 10-05-2023 10-05-2023 Episodic Respiratory failure; insufficiency; arrest (adult) (2 sources) Acute respiratory failure; Translations: [Acute respiratory failure, unspecified whether with hypoxia or hypercapnia] Onset: 08-26-2023 09-21-2023 Episodic Screening and history of mental health and substance abuse codes (3 sources) Personal history of nicotine dependence; Translations: [Ex-cigarette smoker] Onset: 07-16-2022 08-19-2023 Episodic Unclassified (1 source) LOW BACK PAIN, UNSPECIFIED; Translations: [LOW BACK PAIN, UNSPECIFIED] Onset: 06-26-2022 Urinary tract infections (6 sources) Urinary tract infectious disease; Translations: [Urinary tract infection, site not specified] Onset: 05-21-2023 Resolved: 10-21-2023 11-18-2022 Episodic Viral infection (6 sources) Herpes zoster; Translations: [Zoster without complications] Onset: 05-18-2023 Resolved: 05-18-2023 05-18-2023 Episodic Results Test Name Value Interpretation Reference Range Facility MHPT CULT,URINEon 01-23-2024 Interpretation and review of laboratory results [facility] Spec[facility] Description .CLEAN CATCH [facility] Culture ESCHERICHIA COLI >100,000 CFU/ML Ab[facility] STREPTOCOCCI, BETA HEMOLYTIC GROUP B 10 to 50,000 CFU/ML [facility] Report Status FINAL 01/23/2024 [facility] MHPT CULT,URINE SUSCEPTIBILITY [facility] Organism ESCHERICHIA COLI [facility] Method CROW [facility] Ampicillin 16 INTERMEDIATE Intermediate [facility] Cefazolin <=4 SUSCEPTIBLE Susceptible [facility] Cefazolin sensitivit y results can be used to predict the effectiveness of oral Susceptible [facility] cephalosporins (eg. Cephalexin) in uncomplicated Urinary Tract Infections due [facility] to E. coli, K. pneumoniae, and P. mirabilis [facility] Ceftriaxone <=0.25 SUSCEPTIBLE Susceptible [facility] Negative [facility] Gentamicin <=1 SUSCEPTIBLE [facility]ceptible [facility] Levofloxacin <=0.12 SUSCEPTIBLE [facility]ceptible [facility] Nitrofurantoin <=[address] [facility] MHPT CULT,URINE Piperacillin/Tazobac ta m <=4 SUSCEPTIBLE [facility]ceptible [facility] Tobramycin <=1 SUSCEPTIBLE [facility] Trimethoprim/Sulfa <=[address] [facility] Original Ordering Provider: RICHA DAVENPORT [facility] ALL BASIC METABOLIC PANELon 10-01-2024 Anion gap [Moles/Vol] 11.1 mmol/L [facility] Calcium [Mass/Vol] 9.2 mg/dL 8.5 - 10. 1 mg/dL [facility] Chloride [Moles/Vol] 105 mmol/L 98 - 10 7 mmol/L [facility] CO2 [Moles/Vol] 28.0 mmol/L 21.0 - 32.0 mmol/L [facility] Creatinine [Mass/Vol] 1.08 mg/dL High 0.55 - 1.02 mg/dL [facility] GFR/1.73 sq M.predicted CKD-EPI (S/P/Bld) [Vol rate/Area] >60 60 - PINF [facility] Glucose [Mass/Vol] 92 mg/dL 74 - 106 mg/dL [facility] Interpretation and review of laboratory results Abnormal [facility] Potassium [Moles/Vol] 4.1 mmol/L 3.5 - 5.1 mmol/L [facility] Sodium [Moles/Vol] 140 mmol/L 136 - 145 mmol/L [facility] TBH EGFR-NON AF COLOMBIAN 51 Low 60 - PINF [facility] Urea nitrogen [Mass/Vol] 17.0 mg/dL 7.0 - 18.0 mg/dL [facility] Urea nitrogen/Creatinine [Mass ratio] 15.7 mg/mg [facility] Amphetamine Screen Ql (U)Ord ered By: Jace Graham on 03-23-2023 Amphetamines Ql (U) Negative Negative [facility] Barbiturates [Presence] in U rine by Screen methodOrdered By: Jace Graham on 03-23-2023 Barbiturates Screen Ql (U) Negative Negative [facility] Benzodiazepines Screen Ql (U )Ordered By: Jace Graham on 03-23-2023 Benzodiazepines Ql (U) Negative Negative [facility] Benzoylecgonine [Presence] i n Urine by Screen methodOrdered By: Jace Graham on 03-23-2023 Benzoylecgonine Screen Ql (U) Negative Negative [facility] Cannabinoids [Presence] in U rine by Screen methodOrdered By: Jace Graham on 03-23-2023 Cannabinoids Screen Ql (U) Negative Negative [facility] Comment on above: These are unconfirme d results and should not be used for legal purposes. Drug Cut-Off Concentration: AMPH 1000 ng/mL ELKIN 200 ng/mL ATIYA 200 ng/mL COCM 300 ng/mL OP 300 ng/mL PCP 25 ng/mL THC 20 ng/mL Drug Screen,Urineon 03-23-20 Amphetamine Screen,Urine Negative Normal Negative [facility] Comment on above: Performed By: #### U RDS #### [address] Barbiturate Screen,Urine Negative Normal Negative [facility] Comment on above: Performed By: #### U RDS #### [place] [address] [place] Benzodiazepines Screen,Urine Negative Normal Negative [facility] Comment on above: Performed By: #### U RDS #### [address] Cannabinoid Screen,Urine Negative Normal Negative [facility] Comment on above: Result Comment: Thes e are unconfirmed results and should not be used for legal purposes. Drug Cut-Off Concentration: AMPH 1000 ng/mL ELKIN 200 ng/mL ATIYA 200 ng/mL COCM 300 ng/mL OP 300 ng/mL PCP 25 ng/mL THC 20 ng/mL PERFORMED BY: [place] [address] PATHOLOGIST POWER SHOVEL OPERATOR AN CURRY M.D. Performed By: #### U RDS #### [address] Cocaine Screen,Urine Negative Normal Negative [facility] Comment on above: Performed By: #### U RDS #### [place] [address] [place] Opiate Screen,Urine Negative Normal Negative [facility] Comment on above: Performed By: #### U RDS #### [address] Phencyclidine Screen,Urine Negative Normal Negative [facility] Comment on above: Performed By: #### U RDS #### [address] Opiates [Presence] in Urine by Screen methodOrdered By: Jace Graham on 03-23-2023 Opiates Screen Ql (U) Negative Negative [facility] Phencyclidine Screen Ql (U)O rdered By: Jace Graham on 03-23-2023 Phencyclidine Ql (U) Negative Negative [facility] Cholesterol [Mass/volume] in Serum or PlasmaOrdered By: Eduardo Monk on 11-18-2022 Cholesterol [Mass/Vol] 159 mg/dL 140-200 [facility] Comment on above: Chol less than 200 m g/dl low riskChol 201-239 mg/dl borderline riskChol 240 mg/dl and greater high risk Cholesterol in LDL Calc [Mas s/Vol]Ordered By: Eduardo Monk on 11-18-2022 Cholesterol in LDL [Mass/Vol] 84 mg/dL 0-100 [facility] Comment on above: LDL ATP III CLASSIFI CATIONLDL less than 100 mg/dL OptimalLDL 100-129 mg/dL Near or above optimalLDL 130-159 mg/dL Borderline highLDL 160-189 mg/dL HighLDL greater than 189 mg/dL Very high Cholesterol in VLDL Calc [Ma ss/Vol]Ordered By: Eduardo Monk on 11-18-2022 Cholesterol in VLDL [Mass/Vol] 28 mg/dL [facility] Serum or plasma high density lipoprotein (HDL) cholesterol measurementOrdered By: Eduardo Monk on 11-18-2022 Cholesterol in HDL [Mass/Vol] 46 mg/dL 23-92 [facility] Comment on above: HDL CHOL ATP-III CLA SSIFICATION Cardiovascular RiskHDL > or equal to 60 mg/dL LOWHDL < 40 mg/dL HIGH Serum or plasma total choles terol/high density lipoprotein (HDL) cholesterol mass ratOrdered By: Eduardo Monk on 11-18-2022 Cholesterol.total/Chol esterol in HDL [Mass ratio] 3.5 {ratio} <5.0 [facility] Thyrotropin [Units/volume] i n Serum or PlasmaOrdered By: Eduardo Monk on 11-18-2022 TSH Qn 2.13 m[IU]/L 0.45-5.33 [facility] Triglyceride [Mass/volume] i n Serum or PlasmaOrdered By: Eduardo Monk on 11-18-2022 Triglyceride [Mass/Vol] 144 mg/dL 0-149 [facility] Comment on above: TRIG ATP III CLASSIF ICATIONTRIG less than 150 mg/dL NormalTRIG 150-199 mg/dL Borderline highTRIG 200-500 mg/dL High TRIG greater than 500 mg/dL Very highStandard traceable to the Center for Disease Conrtrol and Prevention (CDC) test method. Vitamin D+Metabolites [Mass/ volume] in Serum or PlasmaOrdered By: Eduardo Monk on 11-18-2022 Vitamin D+Metabolites [Mass/Vol] 50.4 ng/mL 30-100 [facility] Comment on above: VITAMIN D STATUS 25( [place])VITAMIN D RANGE (ng/mL) Deficient <20 Insufficient 20 to <30Sufficient 30 to 100Reference: Bin MF,Lakshmi CABRERA, Cristian SMART, et al. Evaluation,treatment, and prevention of vitamin D deficiency; an Endocrine Society clinical practice guideline. JCEM. 2010; 96(7):1911-30. CBC AUTO DIFFon 07-25-2022 BASO # 0.1 103/ul Normal 0.0-0.1 [facility] Comment on above: Performed By: #### A 1C #### [facility] [address] [address] [address] Bebeto Alvarado Basophils/100 WBC (Bld) 0.6 % Normal 0.2-2.0 [facility] Comment on above: Performed By: #### A 1C #### [facility] [address] [address] [address] Bebeto Alvarado EO # 0.2 103/ul Normal 0.0-0.7 [facility] Comment on above: Performed By: #### A 1C #### [facility] [address] [address] [address] Bebeto Alvarado Eosinophils/100 WBC (Bld) 2.3 % Normal 0.9-7.0 [facility] Comment on above: Performed By: #### A 1C #### [facility] [address] [place] [address] Dr. Bebeto Alvarado Erythrocyte distribution width (RBC) [Ratio] 13.8 % Normal 11.0-15.0 [facility] Comment on above: Performed By: #### A 1C #### [facility] [address] [place] [address] Dr. Bebeto Alvarado Hematocrit (Bld) [Volume fraction] 41.2 % Normal 36.0-48.0 [facility] Comment on above: Performed By: #### A 1C #### [facility] [address] [place] [address] Dr. Bebeto Alvarado Hemoglobin (Bld) [Mass/Vol] 13.2 g/dL Normal 12.0-16.0 [facility] Comment on above: Performed By: #### A 1C #### [facility] [address] [place] [address] Dr. Bebeto Alvarado IG # 0.03 10e3/ul Normal 0.00-0.03 [facility] Comment on above: Performed By: #### A 1C #### [facility] [address] [place] [address] Dr. Bebeto Alvarado IG % 0.4 % Normal 0.0-0.5 [facility] Comment on above: Performed By: #### A 1C #### [facility] [address] [place] [address] Dr. Bebeto Alvarado LYMPH # 2.1 103/ul Normal 1.2-3.8 [facility] Comment on above: Performed By: #### A 1C #### [facility] [address] [place] [address] Dr. Bebeto Alvarado Lymphocytes/100 WBC (Bld) 25.9 % Normal 20.5-60.0 [facility] Comment on above: Performed By: #### A 1C #### [facility] [address] [place] [address] Dr. Bebeto Alvarado MANUAL DIFF REQ NO Normal [facility] Comment on above: Performed By: #### A 1C #### [facility] [address] [address] [address] Bebeto Alvarado MCH (RBC) [Entitic mass] 28.0 pg Normal 26.7-34.0 [facility] Comment on above: Performed By: #### A 1C #### [facility] [address] [place] [address] Dr. Bebeto Alvarado MCHC (RBC) [Mass/Vol] 32.0 g/dL Normal 29.9-35.2 [facility] Comment on above: Performed By: #### A 1C #### [facility] [address] [place] [address] Dr. Bebeto Alvarado MCV (RBC) [Entitic vol] 87.5 fL Normal 81.0-99.0 [facility] Comment on above: Performed By: #### A 1C #### [facility] [address] [place] [address] Dr. Bebeto Alvarado MONO # 0.5 103/ul Normal 0.3-0.8 [facility] Comment on above: Performed By: #### A 1C #### [facility] [address] [place] [address] Dr. Bebeto Alvarado Monocytes/100 WBC (Bld) 6.6 % Normal 1.7-12.0 [facility] Comment on above: Performed By: #### A 1C #### [facility] [address] [place] [address] Dr. Bebeto Alvarado NEUT # 5.1 103/ul Normal 1.4-6.5 [facility] Comment on above: Performed By: #### A 1C #### [facility] [address] [place] [address] Dr. Bebeto Alvarado Neutrophils/100 WBC (Bld) 64.2 % Normal 43.0-75.0 [facility] Comment on above: Performed By: #### A 1C #### [facility] [address] [place] [address] Dr. Bebeto Alvarado Platelet mean volume (Bld) [Entitic vol] 11.2 fL Normal 9.5-13.5 [facility] Comment on above: Performed By: #### A 1C #### [facility] [address] [address] [address] Bebeto Alvarado PLT 252 103/ul Normal 150-450 [facility] Comment on above: Performed By: #### A 1C #### [facility] [address] [address] [address] Bebeto Alvarado RBC 4.71 106/ul Normal 4.20-5.40 [facility] Comment on above: Performed By: #### A 1C #### [facility] [address] [address] [address] Bebeto Alvarado WBC 8.0 103/ul Normal 4.0-11.0 [facility] Comment on above: Performed By: #### A 1C #### [facility] [address] [address] [address] Bebeto Alvarado GLYCOHEMOGLOBIN A1Con 2022 ADA RECOMMENDATION SEE BELOW Normal [facility] Comment on above: Result Comment: ADA RECOMMENDED LIMIT 4.0 - 6.0 ADA THERAPEUTIC TARGET < 7.0 ACTION SUGGESTED > 7.0 Performed By: #### A 1C #### [facility] [address] [address] [address] Bebeto Alvarado Glucose [Mass/Vol] 114 mg/dL Normal [facility] Comment on above: Performed By: #### A 1C #### [facility] [address] [address] [address] Bebeto Alvarado HbA1c (Bld) [Mass fraction] 5.6 % Normal 4.5-6.2 [facility] Comment on above: Performed By: #### A 1C #### [facility] [address] [address] [address] Bebeto Alvarado IRONon 07-25-2022 Iron [Mass/Vol] 60.0 ug/dL Normal 50.0-170.0 [facility] Comment on above: Performed By: #### V ITB12, IRON #### [facility] [address] [address] [address] Bebeto Alvarado LIPID PROFILEon 07-25-2022 CHOL-HDL RATIO NORM SEE BELOW Normal [facility] Comment on above: Result Comment: 3.3 - 4.4 LOW RISK 4.4 - 7.1 AVERAGE RISK 7.1 - 11.0 MODERATE RISK >11.0 HIGH RISK Performed By: #### C MP, LIPID #### [facility] [address] [address] [address] Bebeto Alvarado Cholesterol [Mass/Vol] 144 mg/dL Normal <=200 [facility] Comment on above: Performed By: #### C MP, LIPID #### [facility] [address] [address] [address] Bebeto Alvarado Cholesterol in HDL [Mass/Vol] 39 mg/dL Critically low 40-60 [facility] Comment on above: Performed By: #### C MP, LIPID #### [facility] [address] [address] [address] Bebeto Alvarado Cholesterol in LDL [Mass/Vol] 74.6 mg/dL Normal [facility] Comment on above: Performed By: #### C MP, LIPID #### [facility] [address] [address] [address] Bebeto Alvarado Cholesterol.total/Chol esterol in HDL [Mass ratio] 3.7 {ratio} Normal [facility] Comment on above: Performed By: #### C MP, LIPID #### [facility] [address] [address] [address] Bebeto Alvarado HDL NORMAL > or = 60 mg/dl - LO W CARDIOVASCULAR RISK <40 mg/dl - HIGH CARDIOVASCULAR RISK Normal [facility] Comment on above: Performed By: #### C MP, LIPID #### [facility] [address] [address] [address] Bebeto Alvarado LDL CALC NORMAL SEE BELOW Normal [facility] Comment on above: Result Comment: <100 mg/dl OPTIMAL 100 - 129 mg/dl NEAR OR ABOVE OPTIMAL 130 - 159 mg/dl BORDERLINE HIGH 160 - 189 mg/dl HIGH >190 mg/dl VERY HIGH Performed By: #### C MP, LIPID #### [facility] [address] [address] [address] Bebeto Alvarado Triglyceride [Mass/Vol] 152 mg/dL Critically high <=150 [facility] Comment on above: Performed By: #### C MP, LIPID #### [facility] [address] [address] [address] Bebeto Alvarado VLDL CALC 30.4 mg/dL Normal [facility] Comment on above: Performed By: #### C MP, LIPID #### [facility] [address] [address] [address] Bebeto Alvarado PROF 14(COMP METB)on 023 Albumin [Mass/Vol] 3.7 g/dL Normal 3.4-5.0 [facility] Comment on above: Performed By: #### C MP, LIPID #### [facility] [address] [place] [address] Dr. Bebeto Alvarado Albumin/Globulin [Mass ratio] 0.9 {ratio} Normal [facility] Comment on above: Performed By: #### C MP, LIPID #### [facility] [address] [place] [address] Dr. Bebeto Alvarado ALP [Catalytic activity/Vol] 90 U/L Normal 46-116 [facility] Comment on above: Performed By: #### C MP, LIPID #### [facility] [address] [address] [address] Bebeto Alvarado ALT [Catalytic activity/Vol] 38 U/L Normal 14-59 [facility] Comment on above: Performed By: #### C MP, LIPID #### [facility] [address] [address] [address] Bebeto Alvarado Anion gap [Moles/Vol] 12.1 mmol/L Normal [facility] Comment on above: Performed By: #### C MP, LIPID #### [facility] [address] [place] [address] Dr. Bebeto Alvarado AST [Catalytic activity/Vol] 26 U/L Normal 15-37 [facility] Comment on above: Performed By: #### C MP, LIPID #### [facility] [address] [place] [address] Dr. Bebeto Alvarado Bilirubin [Mass/Vol] 0.3 mg/dL Normal 0.2-1.0 [facility] Comment on above: Performed By: #### C MP, LIPID #### [facility] [address] [address] [address] Bebeto Alvarado Calcium [Mass/Vol] 9.3 mg/dL Normal 8.5-10.1 [facility] Comment on above: Performed By: #### C MP, LIPID #### [facility] [address] [address] [address] Bebeto Alvarado Chloride [Moles/Vol] 107 mmol/L Normal 98-107 [facility] Comment on above: Performed By: #### C MP, LIPID #### [facility] [address] [address] [address] Bebeto Alvarado CO2 [Moles/Vol] 27.9 mmol/L Normal 21.0-32.0 [facility] Comment on above: Performed By: #### C MP, LIPID #### [facility] [address] [address] [address] Bebeto Alvarado Creatinine [Mass/Vol] 0.95 mg/dL Normal 0.55-1.02 [facility] Comment on above: Performed By: #### C MP, LIPID #### [facility] [address] [address] [address] Bebeto Alvarado EGFR-AF COLOMBIAN >60 Normal >=60 [facility] Comment on above: Performed By: #### C MP, LIPID #### [facility] [address] [address] [address] Bebeto Alvarado EGFR-NON AF COLOMBIAN 60 mL/min/1.73m2 Normal >=60 [facility] Comment on above: Performed By: #### C MP, LIPID #### [facility] [address] [address] [address] Bebeto Alvarado Globulin (S) [Mass/Vol] 3.9 g/dL Normal [facility] Comment on above: Performed By: #### C MP, LIPID #### [facility] [address] [address] [address] Bebeto Alvarado Glucose [Mass/Vol] 108 mg/dL Critically high 74-106 [facility] Comment on above: Performed By: #### C MP, LIPID #### [facility] [address] [address] [address] Bebeto Alvarado Potassium [Moles/Vol] 4.0 mmol/L Normal 3.5-5.1 [facility] Comment on above: Performed By: #### C MP, LIPID #### [facility] [address] [address] [address] Bebeto Alvarado Protein [Mass/Vol] 7.6 g/dL Normal 6.4-8.2 [facility] Comment on above: Performed By: #### C MP, LIPID #### [facility] [address] [place] [address] Dr. Bebeto Alvarado Sodium [Moles/Vol] 143 mmol/L Normal 136-145 [facility] Comment on above: Performed By: #### C MP, LIPID #### [facility] [address] [place] [address] Dr. Bebeto Alvarado Urea nitrogen [Mass/Vol] 15.0 mg/dL Normal 7.0-18.0 [facility] Comment on above: Performed By: #### C MP, LIPID #### [facility] [address] [place] [address] Dr. Bebeto Alvarado Urea nitrogen/Creatinine [Mass ratio] 15.8 mg/mg Normal [facility] Comment on above: Performed By: #### C MP, LIPID #### [facility] [address] [place] [address] Dr. Bebeto Alvarado UA RANDOM W/MICROSCOPICon BACTERIA NONE SEEN Normal NONE SEEN [facility] Comment on above: Performed By: #### A 1C #### [facility] [address] [place] [address] Dr. Bebeto Alvarado Bilirubin Ql (U) Negative Normal NEGATIVE [facility] Comment on above: Performed By: #### A 1C #### [facility] [address] [place] [address] Dr. Bebeto Alvarado CAST NONE SEEN Normal NONE SEEN [facility] Comment on above: Performed By: #### A 1C #### [facility] [address] [place] [address] Dr. Bebeto Alvarado Clarity (U) CLEAR Normal CLEAR [facility] Comment on above: Performed By: #### A 1C #### [facility] [address] [place] [address] Dr. Bebeto Alvarado Color (U) YELLOW Normal YELLOW [facility] Comment on above: Performed By: #### A 1C #### [facility] [address] [place] [address] Dr. Bebeto Alvarado Crystals LM Nom (Urine sed) NONE SEEN Normal NONE SEEN [facility] Comment on above: Performed By: #### A 1C #### [facility] [address] [place] [address] Dr. Bebeto Alvarado Epithelial cells LM Ql (Urine sed) NONE SEEN Normal NONE SEEN /RARE [facility] Comment on above: Performed By: #### A 1C #### [facility] [address] [place] [address] Dr. Bebeto Alvarado Glucose Ql (U) Negative Normal NEGATIVE [facility] Comment on above: Performed By: #### A 1C #### [facility] [address] [place] [address] Dr. Bebeto Alvarado Hemoglobin Ql (U) Negative Normal NEGATIVE [facility] Comment on above: Performed By: #### A 1C #### [facility] [address] [place] [address] Dr. Bebeto Alvarado Ketones Ql (U) Negative Normal NEGATIVE [facility] Comment on above: Performed By: #### A 1C #### [facility] [address] [place] [address] Dr. Bebeto Alvarado LEUKOCYTES Negative Normal NEGATIVE [facility] Comment on above: Performed By: #### A 1C #### [facility] [address] [place] [address] Dr. Bebeto Alvarado MUCOUS NONE SEEN Normal NONE SEEN [facility] Comment on above: Performed By: #### A 1C #### [facility] [address] [place] [address] Dr. Bebeto Alvarado Nitrite Ql (U) Negative Normal NEGATIVE [facility] Comment on above: Performed By: #### A 1C #### [facility] [address] [place] [address] Dr. Bebeto Alvarado pH (U) 5.5 [pH] Normal 5-9 [facility] Comment on above: Performed By: #### A 1C #### [facility] [address] [place] [address] Dr. Bebeto Alvarado RBC NONE SEEN Abnormal 0-2 [facility] Comment on above: Performed By: #### A 1C #### [facility] [address] [place] [address] Dr. Bebeto Alvarado SPEC GRAVITY 1.030 Abnormal 1.005-<=1.02 5 [facility] Comment on above: Performed By: #### A 1C #### [facility] [address] [place] [address] Dr. Bebeto Alvarado UA PROTEIN Negative Normal NEGATIVE/ TRACE [facility] Comment on above: Performed By: #### A 1C #### [facility] [address] [place] [address] Dr. Bebeto Alvarado Urobilinogen Qn (U) 0.2 {Katerin'U}/dL Normal 0.2 - 1. 0 [facility] Comment on above: Performed By: #### A 1C #### [facility] [address] [place] [address] Dr. Bebeto Alvarado WBC NONE SEEN Normal NONE SEEN [facility] Comment on above: Performed By: #### A 1C #### [facility] [address] [place] [address] Dr. Bebeto Alvarado VITAMIN B12on 07-25-2022 Cobalamin (Vitamin B12) [Mass/Vol] 1684.0 pg/mL Critically high 193.0-986.0 [facility] Comment on above: Performed By: #### V ITB12, IRON #### [facility] [address] [place] [address] Dr. Bebeto Alvarado PROF CHEM 8 (BAS METB)on Anion gap [Moles/Vol] 12.2 mmol/L Normal Th e [facility] Comment on above: Performed By: #### B MP #### [facility] [address] [address] [address] Bebeto Alvarado Calcium [Mass/Vol] 8.9 mg/dL Normal 8.5-10.1 [facility] Comment on above: Performed By: #### B MP #### [facility] [address] [address] [address] Bebeto Alvarado Chloride [Moles/Vol] 105 mmol/L Normal 98-107 [facility] Comment on above: Performed By: #### B MP #### [facility] [address] [address] [address] Bebeto Alvarado CO2 [Moles/Vol] 29.6 mmol/L Normal 21.0-32.[address] [facility] Comment on above: Performed By: #### B MP #### [facility] [address] [place] [address] Dr. Bebeto Alvarado Creatinine [Mass/Vol] 0.95 mg/dL Normal 0.55-1.02 [facility] Comment on above: Performed By: #### B MP #### [facility] [address] [address] [address] Bebeto Alvarado EGFR-AF COLOMBIAN >60 Normal >=[address] [facility] Comment on above: Performed By: #### B MP #### [facility] [address] [address] [address] Bebeto Alvarado EGFR-NON AF COLOMBIAN 60 mL/min/1.73m2 Normal >=60 [facility] Comment on above: Performed By: #### B MP #### [facility] [address] [address] [address] Bebeto Alvarado Glucose [Mass/Vol] 101 mg/dL Normal 74-106 [facility] Comment on above: Performed By: #### B MP #### [facility] [address] [address] [address] Bebeto Alvarado Potassium [Moles/Vol] 3.8 mmol/L Normal 3.5-5.1 [facility] Comment on above: Performed By: #### B MP #### [facility] [address] [place] [address] Dr. Bebeto Alvarado Sodium [Moles/Vol] 143 mmol/L Normal 136-145 [facility] Comment on above: Performed By: #### B MP #### [facility] [address] [place] [address] Dr. Bebeto Alvarado Urea nitrogen [Mass/Vol] 16.0 mg/dL Normal 7.0-18.0 [facility] Comment on above: Performed By: #### B MP #### [facility] [address] [place] [address] Dr. Bebeto Alvarado Urea nitrogen/Creatinine [Mass ratio] 16.8 mg/mg Normal [facility] Comment on above: Performed By: #### B MP #### [facility] [address] [place] [address] Dr. Bebeto Alvarado CBC AUTO DIFFon 11-21-2021 BASO # 0.1 103/ul Normal 0.0-0.1 [facility] Comment on above: Performed By: #### A 1C #### [facility] [address] [place] [address] Dr. Bebeto Alvarado Basophils/100 WBC (Bld) 1.0 % Normal 0.2-2.0 [facility] Comment on above: Performed By: #### A 1C #### [facility] [address] [place] [address] Dr. Bebeto Alvarado EO # 0.2 103/ul Normal 0.0-0.7 [facility] Comment on above: Performed By: #### A 1C #### [facility] [address] [place] [address] Dr. Bebeto Alvarado Eosinophils/100 WBC (Bld) 3.3 % Normal 0.9-7.0 [facility] Comment on above: Performed By: #### A 1C #### [facility] [address] [place] [address] Dr. Bebeto Alvarado Erythrocyte distribution width (RBC) [Ratio] 13.8 % Normal 11.0-15.0 [facility] Comment on above: Performed By: #### A 1C #### [facility] [address] [place] [address] Dr. Bebeto Alvarado Hematocrit (Bld) [Volume fraction] 38.8 % Normal 36.0-48.0 [facility] Comment on above: Performed By: #### A 1C #### [facility] [address] [place] [address] Dr. Bebeto Alvarado Hemoglobin (Bld) [Mass/Vol] 12.5 g/dL Normal 12.0-16.0 [facility] Comment on above: Performed By: #### A 1C #### [facility] [address] [place] [address] Dr. Bebeto Alvarado IG # 0.02 10e3/ul Normal 0.00-0.03 [facility] Comment on above: Performed By: #### A 1C #### [facility] [address] [place] [address] Dr. Bebeto Alvarado IG % 0.3 % Normal 0.0-0.5 [facility] Comment on above: Performed By: #### A 1C #### [facility] [address] [place] [address] Dr. Bebeto Alvarado LYMPH # 1.9 103/ul Normal 1.2-3.8 [facility] Comment on above: Performed By: #### A 1C #### [facility] [address] [place] [address] Dr. Bebeto Alvarado Lymphocytes/100 WBC (Bld) 29.6 % Normal 20.5-60.0 [facility] Comment on above: Performed By: #### A 1C #### [facility] [address] [place] [address] Dr. Bebeto Alvarado MANUAL DIFF REQ NO Normal [facility] Comment on above: Performed By: #### A 1C #### [facility] [address] [place] [address] Dr. Bebeto Alvarado MCH (RBC) [Entitic mass] 28.0 pg Normal 26.7-34.0 [facility] Comment on above: Performed By: #### A 1C #### [facility] [address] [place] [address] Dr. Bebeto Alvarado MCHC (RBC) [Mass/Vol] 32.2 g/dL Normal 29.9-35.2 [facility] Comment on above: Performed By: #### A 1C #### [facility] [address] [place] [address] Dr. Bebeto Alvarado MCV (RBC) [Entitic vol] 86.8 fL Normal 81.0-99.0 [facility] Comment on above: Performed By: #### A 1C #### [facility] [address] [address] [address] Bebeto Alvarado MONO # 0.4 103/ul Normal 0.3-0.8 [facility] Comment on above: Performed By: #### A 1C #### [facility] [address] [place] [address] Dr. Bebeto Alvarado Monocytes/100 WBC (Bld) 5.7 % Normal 1.7-12.0 [facility] Comment on above: Performed By: #### A 1C #### [facility] [address] [place] [address] Dr. Bebeto Alvarado NEUT # 3.8 103/ul Normal 1.4-6.5 [facility] Comment on above: Performed By: #### A 1C #### [facility] [address] [place] [address] Dr. Bebeto Alvarado Neutrophils/100 WBC (Bld) 60.1 % Normal 43.0-75.0 [facility] Comment on above: Performed By: #### A 1C #### [facility] [address] [place] [address] Dr. Bebeto Alvarado Platelet mean volume (Bld) [Entitic vol] 11.0 fL Normal 9.5-13.5 [facility] Comment on above: Performed By: #### A 1C #### [facility] [address] [place] [address] Dr. Bebeto Alvarado PLT 264 103/ul Normal 150-450 [facility] Comment on above: Performed By: #### A 1C #### [facility] [address] [place] [address] Dr. Bebeto Alvarado RBC 4.47 106/ul Normal 4.20-5.40 [facility] Comment on above: Performed By: #### A 1C #### [facility] [address] [address] [address] Bebeto Alvarado WBC 6.3 103/ul Normal 4.0-11.0 [facility] Comment on above: Performed By: #### A 1C #### [facility] [address] [address] [address] Bebeto Alvarado GLYCOHEMOGLOBIN A1Con 2021 ADA RECOMMENDATION SEE BELOW Normal [facility] Comment on above: Result Comment: ADA RECOMMENDED LIMIT 4.0 - 6.0 ADA THERAPEUTIC TARGET < 7.0 ACTION SUGGESTED > 7.0 Performed By: #### A 1C #### [facility] [address] [place] [address] Dr. Bebeto Alvarado Glucose [Mass/Vol] 105 mg/dL Normal [facility] Comment on above: Performed By: #### A 1C #### [facility] [address] [address] [address] Bebeto Alvarado HbA1c (Bld) [Mass fraction] 5.3 % Normal 4.5-6.2 [facility] Comment on above: Performed By: #### A 1C #### [facility] [address] [address] [address] Bebeto Alvarado IRONon 11-21-2021 Iron [Mass/Vol] 59.0 ug/dL Normal 50.0-170.0 [facility] Comment on above: Performed By: #### A 1C #### [facility] [address] [place] [address] Dr. Bebeto Alvarado LIPID PROFILEon 11-21-2021 CHOL-HDL RATIO NORM SEE BELOW Normal [facility] Comment on above: Result Comment: 3.3 - 4.4 LOW RISK 4.4 - 7.1 AVERAGE RISK 7.1 - 11.0 MODERATE RISK >11.0 HIGH RISK Performed By: #### C MP, LIPID #### [facility] [address] [address] [address] Bebeto Alvarado Cholesterol [Mass/Vol] 139 mg/dL Normal <=200 [facility] Comment on above: Performed By: #### C MP, LIPID #### [facility] [address] [address] [address] Bebeto Alvarado Cholesterol in HDL [Mass/Vol] 35 mg/dL Critically low 40-60 [facility] Comment on above: Performed By: #### C MP, LIPID #### [facility] [address] [address] [address] Bebeto Alvarado Cholesterol in LDL [Mass/Vol] 69.6 mg/dL Normal [facility] Comment on above: Performed By: #### C MP, LIPID #### [facility] [address] [address] [address] Bebeto Alvarado Cholesterol.total/Chol esterol in HDL [Mass ratio] 4.0 {ratio} Normal [facility] Comment on above: Performed By: #### C MP, LIPID #### [facility] [address] [address] [address] Bebeto Alvarado HDL NORMAL > or = 60 mg/dl - LO W CARDIOVASCULAR RISK <40 mg/dl - HIGH CARDIOVASCULAR RISK Normal [facility] Comment on above: Performed By: #### C MP, LIPID #### [facility] [address] [place] [address] Dr. Bebeto Alvarado LDL CALC NORMAL SEE BELOW Normal [facility] Comment on above: Result Comment: <100 mg/dl OPTIMAL 100 - 129 mg/dl NEAR OR ABOVE OPTIMAL 130 - 159 mg/dl BORDERLINE HIGH 160 - 189 mg/dl HIGH >190 mg/dl VERY HIGH Performed By: #### C MP, LIPID #### [facility] [address] [address] [address] Bebeto Alvarado Triglyceride [Mass/Vol] 172 mg/dL Critically high <=150 [facility] Comment on above: Performed By: #### C MP, LIPID #### [facility] [address] [place] [address] Dr. Bebeto Alvarado VLDL CALC 34.4 mg/dL Normal [facility] Comment on above: Performed By: #### C MP, LIPID #### [facility] [address] [address] [address] Bebeto Alvarado PROF 14(COMP METB)on 022 Albumin [Mass/Vol] 3.8 g/dL Normal 3.4-5.0 [facility] Comment on above: Performed By: #### C MP, LIPID #### [facility] [address] [address] [address] Bebeto Alvarado Albumin/Globulin [Mass ratio] 1.1 {ratio} Normal [facility] Comment on above: Performed By: #### C MP, LIPID #### [facility] [address] [address] [address] Bebeto Alvarado ALP [Catalytic activity/Vol] 96 U/L Normal 46-116 [facility] Comment on above: Performed By: #### C MP, LIPID #### [facility] [address] [address] [address] Bebeto Alvarado ALT [Catalytic activity/Vol] 25 U/L Normal 14-59 [facility] Comment on above: Performed By: #### C MP, LIPID #### [facility] [address] [address] [address] Bebeto Alvarado Anion gap [Moles/Vol] 11.8 mmol/L Normal [facility] Comment on above: Performed By: #### C MP, LIPID #### [facility] [address] [address] [address] Bebeto Alvarado AST [Catalytic activity/Vol] 20 U/L Normal 15-37 [facility] Comment on above: Performed By: #### C MP, LIPID #### [facility] [address] [address] [address] Bebeto Alvaardo Bilirubin [Mass/Vol] 0.4 mg/dL Normal 0.2-1.0 [facility] Comment on above: Performed By: #### C MP, LIPID #### [facility] [address] [address] [address] Bebeto Alvarado Calcium [Mass/Vol] 8.8 mg/dL Normal 8.5-10.1 [facility] Comment on above: Performed By: #### C MP, LIPID #### [facility] [address] [address] [address] Bebeto Alvarado Chloride [Moles/Vol] 106 mmol/L Normal 98-107 [facility] Comment on above: Performed By: #### C MP, LIPID #### [facility] [address] [address] [address] Bebeto Alvarado CO2 [Moles/Vol] 27.0 mmol/L Normal 21.0-32.[address] [facility] Comment on above: Performed By: #### C MP, LIPID #### [facility] [address] [address] [address] Bebeto Alvarado Creatinine [Mass/Vol] 0.97 mg/dL Normal 0.55-1.02 [facility] Comment on above: Performed By: #### C MP, LIPID #### [facility] [address] [address] [address] Bebeto Alvarado EGFR-AF COLOMBIAN >60 Normal >=60 [facility] Comment on above: Performed By: #### C MP, LIPID #### [facility] [address] [address] [address] Bebeto Alvarado EGFR-NON AF COLOMBIAN 59 mL/min/1.73m2 Critically low >=60 [facility] Comment on above: Performed By: #### C MP, LIPID #### [facility] [address] [address] [address] Bebeto Alvarado Globulin (S) [Mass/Vol] 3.4 g/dL Normal [facility] Comment on above: Performed By: #### C MP, LIPID #### [facility] [address] [address] [address] Bebeto Alvarado Glucose [Mass/Vol] 103 mg/dL Normal 74-106 [facility] Comment on above: Performed By: #### C MP, LIPID #### [facility] [address] [address] [address] Bebeto Alvarado Potassium [Moles/Vol] 3.8 mmol/L Normal 3.5-5.1 [facility] Comment on above: Performed By: #### C MP, LIPID #### [facility] [address] [address] [address] Bebeto Alvarado Protein [Mass/Vol] 7.2 g/dL Normal 6.4-8.2 [facility] Comment on above: Performed By: #### C MP, LIPID #### [facility] [address] [address] [address] Bebeto Alvarado Sodium [Moles/Vol] 141 mmol/L Normal 136-145 [facility] Comment on above: Performed By: #### C MP, LIPID #### [facility] [address] [address] [address] Bebeto Alvarado Urea nitrogen [Mass/Vol] 11.0 mg/dL Normal 7.0-18.0 [facility] Comment on above: Performed By: #### C MP, LIPID #### [facility] [address] [address] [address] Bebeto Alvarado Urea nitrogen/Creatinine [Mass ratio] 11.3 mg/mg Normal [facility] Comment on above: Performed By: #### C MP, LIPID #### [facility] [address] [address] [address] Bebeto Alvarado URIC ACID SERUMon 11-21-2021 Urate [Mass/Vol] 7.3 mg/dL Critically high 2.6-6.0 [facility] Comment on above: Performed By: #### A 1C #### [facility] [address] [place] [address] Dr. Bebeto Alvarado VITAMIN B12on 11-21-2021 Cobalamin (Vitamin B12) [Mass/Vol] 2123.0 pg/mL Critically high 193.0-986.0 [facility] Comment on above: Performed By: #### A 1C #### [facility] [address] [place] [address] Dr. Bebeto Alvarado Physician Referralon 022 Physician Referral [id number] Normal [facility] KNEE RIGHT 1 OR 2 VWSon 11-0 KNEE RIGHT 1 OR 2 VWS [facility] Department of Radiology [address] [place] [id number] ======== Patient Name: MICHELLE BE : [...] Electronically signed by:Debra Del Cid. Transcribed by: [email or web address], User Resident: Electronically Signed by: DEBRA DEL CID @ 02/08/2019 11:16 AM Normal [facility] Comment on above: Order Comment: , Vie ws (X-RAY, KNEE): Radiologic Protocol , Weight Bearing?: N , With or Without Brace/Cast/Collar: With , Views (X-RAY, KNEE): Radiologic Protocol , Weight Bearing?: N , With or Without Brace/Cast/Collar: With , , , Ordering Provider - AHSAN BINGHAM PA-C , KNEE RIGHT 1 OR 2 Son KNEE RIGHT 1 OR 2 S [facility] Department of Radiology [address] [place] [id number] ======== Patient Name: MICHELLE BE : 1960 Sex: F Age: Race: White Pt. Location: Patient Status: Ordered Date: 12/07/2018 10:20:00 AM Completed Date: 12/07/2018 10:20 AM Requesting Provider: AHSAN BINGHAM Attending Provider: Report Copy To: Signs & Symptoms: S82.001A Unsp fracture of right patella, init for clos fx I10 History: [place] Comments: , , , Ordering Provider - [...] complications. Electronically signed by:Tomasz Stoll. Transcribed by: [email or web address], User Resident: Electronically Signed by: TOMASZ STOLL @ 12/07/2018 11:14 AM Normal [facility] Comment on above: Order Comment: , Rossie ws (X-RAY, KNEE): Radiologic Protocol , Weight Bearing?: N , With or Without Brace/Cast/Collar: With , Views (X-RAY, KNEE): Radiologic Protocol , Weight Bearing?: N , With or Without Brace/Cast/Collar: With , , , Ordering Provider - AHSAN BINGHAM PA-C , KNEE RIGHT 1 OR 2 [facility] 07-0 KNEE RIGHT 1 OR 2 S [facility] Department of Radiology [address] [place] [id number] ======== Patient Name: MICHELLE BE : 1960 Sex: F Age: Race: White Pt. 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 Transcribed by: [email or web address], User Resident: Electronically Signed by: ANUP ELLISON @ 10/06/2018 02:48 PM [place] [facility] Comment on above: Order Comment: , Rossie ws (X-RAY, KNEE): Radiologic Protocol , Weight Bearing?: N , With or Without Brace/Cast/Collar: With , Views (X-RAY, KNEE): Radiologic Protocol , Weight Bearing?: N , With or Without Brace/Cast/Collar: With , , , Ordering Provider - AHSAN BINGHAM PA-C , KNEE RIGHT 1 OR 2 VWSon 08-05 KNEE RIGHT 1 OR 2 VWS [facility] Department of Radiology [address] [place] [phone] ======== Patient Name: MICHELLE BE : [...] effusion Electronically signed by:Anup Ellison. Transcribed by: [email or web address], User Resident: Electronically Signed by: ANUP ELLISON @ 08/26/2018 04:56 PM Normal [facility] Comment on above: Order Comment: , Vie ws (X-RAY, KNEE): Radiologic Protocol , Weight Bearing?: N , With or Without Brace/Cast/Collar: With , Views (X-RAY, KNEE): Radiologic Protocol , Weight Bearing?: N , With or Without Brace/Cast/Collar: With , , , Ordering Provider - AHSAN BINGHAM PA-C , KNEE RIGHT 1 OR 2 [facility] 07-06 KNEE RIGHT 1 OR 2 [facility] Department of Radiology [address] [place] [phone] ======== Patient Name: MICHELLE BE : [...] compartment Electronically signed by:Anup Ellison. Transcribed by: [email or web address], User Resident: Electronically Signed by: ANUP ELLISON @ 07/29/2018 03:41 PM Normal [facility] Comment on above: Order Comment: , Mabel ws (X-RAY, KNEE): Radiologic Protocol , Weight Bearing?: N , With or Without Brace/Cast/Collar: With , Views (X-RAY, KNEE): Radiologic Protocol , Weight Bearing?: N , With or Without Brace/Cast/Collar: With , , , Ordering Provider - AHSAN BINGHAM PA-C , KNEE RIGHT 3 VWSon 9 KNEE RIGHT 3 [facility] Department of Radiology [address] [place] [phone] ======== Patient Name: MICHELLE BE : [...] [facility] ======== KNEE RIGHT 3 S 07/15/2018 8:47 [...] knee Electronically signed by:Anup Ellison. Transcribed by: [email or web address], User Resident: Electronically Signed by: ANUP ELLISON @ 07/15/2018 03:31 PM Normal [facility] Comment on above: Order Comment: , Vie ws (X-RAY, KNEE): Radiologic Protocol , Weight Bearing?: N , With or Without Brace/Cast/Collar: With , Views (X-RAY, KNEE): Radiologic Protocol , Weight Bearing?: N , With or Without Brace/Cast/Collar: With , , , Ordering Provider - AHSAN BINGHAM PA-C , Operative Reporton 9 Operative Report MR#: [id number] [facility] Pt. Name: Michelle Be Room #: 0C [...] Duarte MD Date Trans: 07/03/2018 04:28 A/terry [id number] Normal [facility] *ANAEROBIC CULTUREon 019 *ANAEROBIC CULTURE Clinical Report: (D) Specimen/Source: SWAB/RT KNEE Collected: 07/02/2018 13:53 Status: Final Last Updated: 07/07/2018 08:02 CULT RES (Final) No Anaerobes Isolated 5 Days Normal [facility] Comment on above: Performed By: #### 3 [id number] #### [address] *WOUND CULTUREon 07-02-2018 *WOUND CULTURE Clinical Report: (D) Specimen/Source: WOUND/INTRAOP SPEC Collected: 07/02/2018 13:53 Status: Final Last Updated: 07/07/2018 10:13 (1) #1 RT KNEE GRAM (Final) Rare Polys No Bacteria Seen CULT RES (Final) No Growth Day 5 Normal [facility] Comment on above: Order Comment: #1 RT KNEE Performed By: #### 3 [id number] #### [address] KNEE RIGHT 1 OR 2 [facility] 06-05 KNEE RIGHT 1 OR 2 S [facility] Department of Radiology [address] [place] [phone] ======== Patient Name: MICHELLE BE : 1960 Sex: F Age: Race: White Pt. Location: OUTP Patient Status: O Ordered Date: 07/02/2018 11:30:00 AM Completed Date: 07/02/2018 02:00 PM Requesting Provider: SUKI ESCALANTE Attending Provider: SKUI ESCALANTE Report Copy To: Signs & Symptoms: [...] Electronically signed by:Debra Del Cid. Transcribed by: [email or web address], User Resident: Electronically Signed by: DEBRA DEL CID @ 07/02/2018 02:03 PM Normal [facility] Comment on above: Order Comment: ORIF VS PERCUTANEOUS FIXATION RIGHT PATELLA POC GLUCOSE LABon 07-02-2018 Glucose [Mass/Vol] 108 mg/dL High 70-100 [facility] Comment on above: Performed By: #### 8 [id number] #### [facility] [address] [place] [address], [facility] APTTon 06-30-2018 aPTT Coag (Bld) [Time] 30.6 s Normal 25.0-35.0 [facility] Comment on above: Result Comment: ALL RESULTS [...] THIS PURPOSE. Performed By: #### 5 6101, [id number] #### [facility] [address] [place] [address], [facility] BASIC METABOLIC PANELon 03- Calcium [Mass/Vol] 9.7 mg/dL Normal 8.6-10.3 [facility] Comment on above: Performed By: #### 0 0071 #### [facility] [address] [place] [address], [facility] Chloride [Moles/Vol] 102 mmol/L Normal 98-107 [facility] Comment on above: Performed By: #### 0 0071 #### [facility] [address] [place] [address], [facility] CO2 [Moles/Vol] 28 mmol/L Normal 21-31 [facility] Comment on above: Performed By: #### 0 0071 #### [facility] [address] [place] [address], [facility] Creatinine [Mass/Vol] 1.20 mg/dL Normal 0.60-1.20 [facility] Comment on above: Performed By: #### 0 0071 #### [facility] [address] [place] [id number], [facility] GFR/1.73 sq M predicted among blacks MDRD (S/P/Bld) [Vol rate/Area] 56 ml/min/1.73sq m Abnormal >60 [facility] Comment on above: Performed By: #### 0 0071 #### [facility] [address] [place] [address], [facility] GFR/1.73 sq M predicted among non-blacks MDRD (S/P/Bld) [Vol rate/Area] 47 ml/min/1.73sq m Abnormal >60 [facility] Comment on above: Performed By: #### 0 0071 #### [facility] [address] [facility] [place] [address], [facility] Glucose [Mass/Vol] 97 mg/dL Normal 70-100 [facility] Comment on above: Performed By: #### 0 0071 #### [facility] [address] [facility] [place] [address], [facility] Potassium [Moles/Vol] 4.1 mmol/L Normal 3.5-5.1 [facility] Comment on above: Performed By: #### 0 0071 #### [facility] [address] [facility] [place] [address], [facility] Sodium [Moles/Vol] 137 mmol/L Normal 136-145 [facility] Comment on above: Performed By: #### 0 0071 #### [facility] [address] [place] [address], [facility] Urea nitrogen [Mass/Vol] 19 mg/dL Normal 7-25 [facility] Comment on above: Performed By: #### 0 0071 #### [facility] [address] [facility] [place] [address], [facility] CBC W/DIFFon 06-30-2018 ABS BASOPHILS 0.1 10*3/uL Normal 0.0-0.2 [facility] Comment on above: Performed By: #### 5 0103 #### [facility] [address] [facility] [place] [address], [facility] ABS IMM GRANS 0.0 10*3/uL Normal 0.0-0.2 [facility] Comment on above: Performed By: #### 5 0103 #### [facility] [address] [place] [address], [facility] ABS NEUTROPHILS 6.4 10*3/uL Normal 1.6-7.6 [facility] Comment on above: Performed By: #### 5 0103 #### [facility] [address] [facility] [place] [address], [facility] Basophils/100 WBC (Bld) 0.7 % Normal 0.0-1.0 [facility] Comment on above: Performed By: #### 5 0103 #### [facility] [address] [place] [address], [facility] Eosinophils (Bld) [#/Vol] 0.2 10*3/uL Normal 0.0-0.5 [facility] Comment on above: Performed By: #### 5 0103 #### [facility] [address] [place] [address], [facility] Eosinophils/100 WBC (Bld) 1.5 % Normal 0.0-6.0 [facility] Comment on above: Performed By: #### 5 0103 #### [facility] [address] Erythrocyte distribution width (RBC) [Ratio] 14.4 % Normal 11.5-15.0 [facility] Comment on above: Performed By: #### 5 0103 #### [facility] [address] [facility] [place] [address], [facility] Hematocrit (Bld) [Volume fraction] 40.6 % Normal 36.0-45.0 [facility] Comment on above: Performed By: #### 5 0103 #### [facility] [address] [facility] [address] Hemoglobin (Bld) [Mass/Vol] 13.3 g/dL Normal 12.0-15.0 [facility] Comment on above: Performed By: #### 5 0103 #### [facility] [address] [facility] [place] [address], [facility] IMMATURE GRANS 0.4 % Normal 0.0-1.0 [facility] Comment on above: Performed By: #### 5 3 #### [facility] [address] [place] [address], [facility] Lymphocytes (Bld) [#/Vol] 2.6 10*3/uL Normal 1.2-4.0 [facility] Comment on above: Performed By: #### 5 0103 #### [facility] [address] [facility] [place] [address], [facility] Lymphocytes/100 WBC (Bld) 26.5 % Normal 20.0-45.0 [facility] Comment on above: Performed By: #### 5 0103 #### [facility] [address] [facility] [place] [address], [facility] MCH (RBC) [Entitic mass] 27.4 pg Normal 27.0-33.0 [facility] Comment on above: Performed By: #### 5 0103 #### [facility] [address] [facility] [address], [facility] MCHC (RBC) [Mass/Vol] 32.8 g/dL Normal 32.0-35.0 [facility] Comment on above: Performed By: #### 5 0103 #### [facility] [address] [facility] [place] [address], [facility] MCV (RBC) [Entitic vol] 83.5 fL Normal 82.0-98.0 [facility] Comment on above: Performed By: #### 5 3 #### [facility] [address] [place] [address], [facility] Monocytes (Bld) [#/Vol] 0.5 10*3/uL Normal 0.1-1.0 [facility] Comment on above: Performed By: #### 5 3 #### [facility] [address] [facility] [place] [address], [facility] MONOS 5.0 % Normal 5.0-12.0 [facility] Comment on above: Performed By: #### 5 3 #### [facility] [address] [place] [address], [facility] Neutrophils/100 WBC (Bld) 65.9 % Normal 40.0-72.0 [facility] Comment on above: Performed By: #### 5 0103 #### [address] Nucleated RBC/100 WBC (Bld) [Ratio] 0 % Normal 0-0 [facility] Comment on above: Performed By: #### 5 0103 #### [place] [address], [facility] PLAT CNT 290 10*3/uL Normal 150-400 [facility] Comment on above: Performed By: #### 5 0103 #### [address] RBC (Bld) [#/Vol] 4.86 10*6/uL Normal 3.80-5.00 [facility] Comment on above: Performed By: #### 5 0103 #### [address] WBC (Bld) [#/Vol] 9.68 10*3/uL Normal 4.00-10.60 [facility] Comment on above: Performed By: #### 5 0103 #### [address] KNEE RIGHT 1 OR 2 VWSon 06-05 KNEE RIGHT 1 OR 2 VWS [facility] Department of Radiology [address] [place] [id number] ======== Patient Name: MICHELLE BE : 1960 Sex: F Age: Race: White Pt. 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 Transcribed by: [email or web address], User Resident: Electronically Signed by: DEBRA DEL CID @ 06/30/2018 11:52 AM Normal [facility] Comment on above: Order Comment: , Mabel ws (X-RAY, KNEE): Radiologic Protocol , Weight Bearing?: N , With or Without Brace/Cast/Collar: With , Views (X-RAY, KNEE): Radiologic Protocol , Weight Bearing?: N , With or Without Brace/Cast/Collar: With , , , Ordering Provider - AHSAN BINGHAM PA-C , PROTHROMBIN TIMEon 9 INR Coag (PPP) [Relative time] 0.98 {INR} Normal 0.91-1.16 [facility] Comment on above: Result Comment: ACCC P [...] RANGE. CHEST 1995;108:231S-246S. Performed By: #### 5 2021, [id number] #### [place] [address] PT Coag (PPP) [Time] 13.0 s Normal 12.3-14.8 [facility] Comment on above: Result Comment: ALL RESULTS MUST BE INTERPRETED WITH RESPECT TO BLOOD DRAWING ARTIFACT OR DILUTION ERROR OF ANTICOAGULANT AT THE TIME OF SAMPLING. Performed By: #### 5 6101, [id number] #### [address] [address], [facility] KNEE RIGHT 3 [facility] 9 KNEE RIGHT 3 [facility] Department of Radiology [address] [place] [address] [place] [address] ======== Patient Name: MICHELLE BE [...] ZHANG PA-C , Exam: KNEE RIGHT 3 [facility] ======== KNEE RIGHT 3 [facility] 06/15/2018 1:34 PM EDT SIGNS AND [...] effusion Electronically signed by:Anup Ellison. Transcribed by: [email or web address], User Resident: Electronically Signed by: ANUP ELLISON @ 06/15/2018 03:50 PM Normal [facility] Comment on above: Order Comment: , Isaiah ght Bearing?: Y , Weight Bearing?: Y , , , Ordering Provider - AMPARO ZHANG PA-C , Vital Signs Date Time Vital Sign Value Performing Clinician Facility 05-18-2023 16:30-0500 Body height 162.6 cm Adelaida Sheyla [employer] Work Phone: [facility] 05-18-2023 16:30-0500 Body mass index (BMI) [Ratio] 47.89 kg/m2 Adelaida Yingmarquesbob [employer] Work Phone: [facility] 05-18-2023 16:30-0500 Body temperature 97.3 [degF] Adelaida Sheyla [employer] Work Phone: [facility] 05-18-2023 16:30-0500 Body weight 126.55 kg Adelaida Sheyla [employer] Work Phone: [facility] 05-18-2023 16:30-0500 Diastolic blood pressure 80 mm[Hg] Adelaida Sheyla [employer] Work Phone: [facility] 05-18-2023 16:30-0500 Heart rate 76 /min Adelaida Sheyla [employer] Work Phone: [facility] 05-18-2023 16:30-0500 Respiratory rate 19 /min Adelaida Aichholz [employer] Work Phone: [facility] 05-18-2023 16:30-0500 SaO2% (BldA) [Mass fraction] 97 % Adelaida Aichholz [employer] Work Phone: [facility] 05-18-2023 16:30-0500 Systolic blood pressure 134 mm[Hg] Adelaida Aichholz [employer] Work Phone: [facility] 03-23-2023 12:10-0500 Diastolic blood pressure 98 mm[Hg] Adelaida Aichholz Work Phone: [facility] 03-23-2023 12:10-0500 Heart rate 76 /min Adelaida Aichholz Work Phone: [facility] 03-23-2023 12:10-0500 Respiratory rate 18 /min Adelaida Aichholz Work Phone: [facility] 03-23-2023 12:10-0500 SaO2% (BldA) [Mass fraction] 99 % Adelaida Aichholz Work Phone: [facility] 03-23-2023 12:10-0500 Systolic blood pressure 162 mm[Hg] Adelaida Aichholz Work Phone: [facility] 03-23-2023 10:53-0500 Body height 162.56 cm Adelaida Aichholz Work Phone: [facility] 03-23-2023 10:53-0500 Body weight 125.64 kg Adelaida Aichholz Work Phone: [facility] 12-19-2022 14:55-0400 Body height 162.56 cm Rosemary Kirkland Other [facility] Other 12-19-2022 14:55-0400 Body mass index (BMI) [Ratio] 47.85 kg/m2 Rosemary Kirkland Other [facility] Other 12-19-2022 14:55-0400 Body temperature 97.8 [degF] Rosemary Kirkland Other [facility] Other 12-19-2022 14:55-0400 Body weight 126.46 kg Rosemary Kirkland Other [facility] Other 12-19-2022 14:55-0400 Respiratory rate 20 /min Rosemary Kirkland Other [facility] Other 12-19-2022 14:55-0400 SaO2% (BldA) [Mass fraction] 95 % Rosemary Kirkland Other [facility] Other 11-20-2022 13:12-0400 Body temperature 97.7 [degF] Adelaida Aichholz Work Phone: [facility] 11-20-2022 13:12-0400 SaO2% (BldA) [Mass fraction] 96 % Adelaida Aichholz Work Phone: [facility] 11-20-2022 07:44-0400 Diastolic blood pressure 90 mm[Hg] Adelaida Aichholz Work Phone: [facility] 11-20-2022 07:44-0400 Heart rate 103 /min Adelaida Aichholz Work Phone: [facility] 11-20-2022 07:44-0400 Systolic blood pressure 152 mm[Hg] Adelaida Aichholz Work Phone: [facility] 11-19-2022 20:00-0400 Respiratory rate 18 /min Adelaida Aichholz Work Phone: [facility] 11-18-2022 15:18-0400 Body height 162.56 cm Adelaida Aichbob Work Phone: [facility] 11-17-2022 [id number] Body weight 122.92 kg Adelaida Sousakushnena Work Phone: [facility] Encounters Encounter Date Encounter Type Care Provider Facility Start: 01-21-2024 End: 01-25-2024 Clinisync Result Encounter Generic External Data Provider [facility] External Department Unsolicited Start: 01-21-2024 End: 01-25-2024 Clinisync Result Encounter Generic External Data Provider [facility] External Department Unsolicited Start: 01-05-2024 End: 01-05-2024 Clinisync Result Encounter Adelaida Hejosue [employer] Work Phone: [facility] External [facility] Unsolicited Start: 01-05-2024 End: 01-05-2024 [facility]inisync Result Encounter Adelaida Yingmarquesbob [employer] Work Phone: [facility] Unsolicited Start: 01-04-2024 End: 01-04-2024 ambulatory ADELAIDA AICHHOLZ Not Available Start: 12-10-2023 ambulatory Adelaida J Aichholz Facilit y:[facility] Start: 12-09-2023 End: 12-09-2023 ambulatory USHAS MIKEMOR Not Available Start: 12-08-2023 End: 12-08-2023 ambulatory [...] Mancuso MD [facility] Start: 05-22-2023 End: 05-22-2023 ambulatory ASHLEIGH Tabby SOLITARIO Not Available Start: 05-21-2023 Refill Adelaida Carrion [employer] Work Phone: [facility] Comment on above: Acute cystitis with hematuria (Primary Dx) Start: 05-18-2023 End: 05-18-2023 Office outpatient visit 25 minutes Adelaida Carrion [employer] Work Phone: [facility] Comment on above: Encounter for annual wellness visit (AWV) in Medicare patient (Primary Dx); OSMANY (obstructive sleep apnea); Chronic pain disorder; Gastroesophageal reflux disease, unspecified whether esophagitis present; Overactive bladder; Lower extremity edema; Pre-diabetes; Morbid obesity (CMS/[facility]); Yeast infection of the skin; Tobacco dependence; Mood disorder (CMS/[facility]); Primary hypertension (CMS/[facility]); Left hip pain; Open wound of anterior abdominal wall, initial encounter Start: 05-18-2023 End: 05-18-2023 ambulatory ADELAIDA CARRION Not Available Start: 05-18-2023 Bamboo flowsheet Adelaida Sheyla [employer] Work Phone: [facility] Start: 05-18-2023 Bamboo flowsheet Adelaida Carrion [employer] Work Phone: [facility] Start: 05-18-2023 End: 05-18-2023 Patient encounter procedure Adelaida Carrion [employer] Work Phone: [facility] Start: 03-25-2023 End: 03-25-2023 ambulatory ADELAIDA CARRION Not Available Start: 03-23-2023 End: 03-23-2023 Admission to same day surgery center Adelaida Carrion Work Phone: [facility] Work Phone: Start: 03-23-2023 End: 03-23-2023 ambulatory Adelaida Carrion Work Phone: [facility] Work Phone: Start: 03-11-2023 End: 03-11-2023 ambulatory KALLI INTERIANO Keiry DENNISLENKA Not Available Start: 02-20-2023 End: 02-20-2023 ambulatory ASHLEIGH HINES Not Available Start: 02-12-2023 End: 02-12-2023 ambulatory Jace Graham Other [facility] Other Start: 02-12-2023 Telephone encounter Jace CORADO G Brush Maker Start: 12-19-2022 End: 12-19-2022 ambulatory Rosemary Kirkland Other [employer] Other Start: 12-19-2022 Office outpatient ne w 10 minutes Rosemary Kirkland [facility] [place] Start: 11-17-2022 End: 11-20-2022 Evaluation and management of inpatient Adelaida Sheyla Work Phone: [facility] Work Phone: Start: 09-04-2022 ambulatory ARIAN Banegas Facili ty:H1 Start: 08-26-2022 ambulatory NARENDRANATH LAKSHMIPATHY . Facility:[facility]1 Start: 08-08-2022 End: 08-09-2022 ambulatory COMMERCIAL OR INSTITUTIONAL CLEANER ADELAIDA SHEYLA Facility:[facility]1 Start: 07-25-2022 End: 07-26-2022 ambulatory COMMERCIAL OR INSTITUTIONAL CLEANER ADELAIDA FRANCIEZ Facility:[facility]1 Start: 07-15-2022 End: 07-15-2022 ambulatory NARENDRANATH LAKSHMIPATHY . Facility:[facility]1 Start: 07-11-2022 ambulatory NARENDRANATH LAKSHMIPATHY . Facility:[facility]1 Start: 06-26-2022 End: 06-27-[address] FINA ZIMMER . Facility:[facility]1 Start: 06-11-2022 ambulatory COMMERCIAL OR INSTITUTIONAL CLE[employer]ER ADELAIDA SHEYLA Facil ity:H1 Start: 05-21-2022 End: 06-11-2022 ambulatory COMMERCIAL OR INSTITUTIONAL CLEANER ADELAIDA EDWINHOLZ Facility:[facility]1 Start: 05-08-2022 End: 05-09-2022 ambulatory LIVIER CARRION Facility:[facility]1 Start: 04-28-2022 End: 04-28-2022 ambulatory LIVIER SOUSAKUSHNena Facility:[facility]1 Start: 04-03-2022 End: 04-04-[address] FINA ZIMMER . Facility:[facility]1 Start: 03-19-2022 End: 03-20-2022 ambulatory LIVIER WITT YINGMarquesKUSHNena Facility:H1 Start: 02-20-2022 End: 02-20-2022 ambulatory GILMER NEVES Facility:H1 Start: 01-10-2022 End: 02-12-2022 ambulatory BRIDGETTE Ca [facility] Facility:H1 Start: 01-02-2022 End: 01-03-[address] FINA ZIMMER . Facility:[facility]1 Start: 01-01-2022 End: 01-02-2022 ambulatory BRIDGETTE Ca [facility] Facility:H1 Start: 12-16-2021 End: 12-16-2021 ambulatory LIVIER DEMPSEYMonse CARRION Facility:H1 Start: 11-21-2021 End: 11-22-[address] DOCTOR BERGERON Facility:H1 Start: 10-03-2021 End: 10-04-[address] FINA ZIMMER . Facility:H1 Start: 09-19-[address] FINA ZIMMER . Faci lity:H1 Start: 09-12-2021 End: 09-12-2021 ambulatory LIVIER WITT YINGMarquesKUSHNena Facility:H1 Start: 08-20-2021 End: 08-20-[address] FINA ZIMMER . Facility:H1 Start: 07-02-2018 End: 07-03-2018 Patient encounter procedure SUKI CHRISTIAN Facility:[facility] Procedures Date Procedure Procedure Detail Performing Clinician Start: 01-21-2024 MHPT CULT,URINE Generic External Data Provider Start: 01-05-2024 ALL BASIC METABOLIC PANEL Adelaida Carrion [employer] Work Phone: Start: 09-18-2023 Mammography Adelaida Jayden ramos [employer] Work Phone: Start: 03-23-2023 Screening colonoscopy L onealmonse Carrion Work Phone: Start: 03-23-2023 Colonoscopy Adelaida ramos [employer] Work Phone: Start: 09-15-2022 Mammography Adelaida ramos NP Work Phone: Start: 08-28-2022 Microscopic observat ion [Identifier] in Cervix by Cyto stain Adelaida Carrion [employer] Work Phone: Start: 07-02-2018 ANESTH KNEE AREA SURGERY CHAPARRITA Lucio HENDRICKS Start: 07-02-2018 REMOVAL OF SUPPORT IMPLANT SUKI EBRAHEIM Start: 07-02-2018 TREAT KNEECAP FRACTURE SUKI EBRAHEIM Plan of Treatment Date Care Activity Detail Author Start: 03-23-2033 Screening for malignant neoplasm of colon [facility] Start: 08-28-2025 Screening for malignant neoplasm of cervix [facility] Start: 09-17-2024 Screening for malignant neoplasm of breast Mammogram [facility] Start: 05-18-2024 Medicare Annual Wellness (AWV) Medicare Annual Wellness (AWV) [facility] Start: 04-04-2024 End: 04-04-2024 Patient encounter procedure 04/04/2024 1:20 PM EST Office Visit [facility] [address] [place] [id number] Adelaida Carrion NP [address] [place] [address] [facility] Start: 02-29-2024 End: 02-29-2024 Patient encounter procedure 02/29/2024 2:40 PM EST Office Visit [facility] [address] [place] [address] Sonam Brown NP [address] [place], [place] [id number] [facility] [address] Start: 02-04-2024 Influenza vaccination Influenza Vacc ine (#1) [facility] Comment on above: Postponed from 12/05 (Patient Does Not Have Time) Start: 01-28-2024 End: 01-28-2024 Patient encounter procedure 01/28/2024 1:40 PM EDT Office Visit [facility] [address] [place] [address] Adelaida Carrion NP [address] [place] [phone] [facility] Start: 09-16-2023 Screening for malignant neoplasm of breast Mammogram [facility] Start: 08-17-2023 End: 08-17-2023 Patient encounter procedure 08/17/2023 9:20 AM EDT Office Visit [facility] [address] [place] [address] Adelaida Carrion, BRIANA [address] [place] [phone] [facility] Start: 05-22-2023 End: 05-22-2023 Patient encounter procedure 05/22/2023 8:45 AM EST Office Visit [facility] [address] [facility] [address] [place] [address] Ashleigh Hines, MAUREEN [address] [facility] [address] [place] [address] [facility] Start: 05-18-2023 End: 05-18-2023 Patient encounter procedure 05/18/2023 4:30 PM EST Office Visit [facility] [address] [place] [address] Adelaida Carrion NP [address] [place] [phone] Arrived [facility] Comment on above: Arrived Start: 05-18-2023 End: 05-18-2024 XR Hip - left 3 Views XR hip left 2 or 3 views Imaging Routine Left hip pain Expected: 05/18/2023 (Approximate), Expires: 05/18/2024 [facility] Work Phone: Comment on above: Expected: 05/18/2023 (Approximate), Expires: 05/18/2024 Start: 03-23-2023 [facility] Start: 11-20-2022 [facility] Start: 11-18-2022 Referral to clinical tube bender hand [facility] Start: 11-17-2022 Hospital admission [facility] Start: 11-17-2022 [facility] Start: 12-06-1991 Screening for malignant neoplasm of cervix HPV/Cotest [facility] Start: 1960 Medicare Annual Wellness (AWV) Medicare Annual Wellness (AWV) [facility] Start: 1960 Screening for malignant neoplasm of colon [facility] Patient Education [facility] Work Phone: Patient referral [facility] Work Phone: [facility] Immunizations Immunization Date Immunization Notes Care Provider Fa select [facility] 08-17-2023 zoster vaccine recombinant Adelaida Aichholz RESERVATIONS SALES AGENT Work Phone: [facility] 02-13-2023 influenza, injectabl e, quadrivalent, preservative free Adelaida Aichholz RESERVATIONS SALES AGENT Work Phone: [facility] 02-13-2023 SARS-COV-2 (COVID-19 ) vaccine, mRNA, spike protein, LNP, PF, 50 mcg/0.5 mL Adelaida Aichholz RESERVATIONS SALES AGENT Work Phone: [facility] 02-13-2023 influenza virus vaccine, unspecified formulation Adelaiad Aichholz RESERVATIONS SALES AGENT Work Phone: [facility] 02-19-2022 diphtheria, tetanus toxoids and pertussis vaccine Adelaida Aichholz RESERVATIONS SALES AGENT Work Phone: [facility] 03-02-2021 Moderna SARS-CoV-2 Vaccination Adelaida Aichholz RESERVATIONS SALES AGENT Work Phone: [facility] 08-24-2020 Moderna SARS-CoV-2 Vaccination Adelaida Aichholz RESERVATIONS SALES AGENT Work Phone: [facility] 07-27-2020 Moderna SARS-CoV-2 Vaccination Adelaida Sousabob RESERVATIONS SALES AGENT Work Phone: [facility] 05-28-2018 influenza, injectabl e, quadrivalent, preservative free Adelaida Sousabob Work Phone: [facility] 2017 pneumococcal conjuga te vaccine, 13 valent Adelaida Yingmarquesbob RESERVATIONS SALES AGENT Work Phone: [facility] Healthcare Payers Date Payer Category Payer Private Health Insurance [id number] 2022 Self-pay [id number] 2022 Medicare [id number] 2022 Medicare (Managed Care) [facility] MEDIC[facility] [id number] 2008 Unknown [id number] 1961 Unknown [id number] 2.16.840.1.253201.3.579.2 .647 1961 Unknown [id number] 2.16.840.1.478898.3.579.2 .593 1961 Unknown [id number] 2.16.840.1.453666.3.579.2 .593 1961 Unknown [id number] 2.16.840.1.482102.3.579.2 .593 1961 Unknown [id number] 2.16.840.1.253912.3.579.2 .593 1961 Unknown [id number] 2.16.840.1.589664.3.579.2 .593 1961 Unknown [id number] 2.16.840.1.431338.3.579.2 .593 1961 Unknown [id number] 2.16.840.1.647887.3.579.2 .593 1961 Unknown [id number] 2.16.840.1.528284.3.579.2 .593 1961 Unknown [id number] 2.16.840.1.915052.3.579.2 .593 1961 Unknown [id number] 2.16.840.1.021314.3.579.2 .593 1961 Unknown [id number] 2.16.840.1.360177.3.579.2 .593 1961 Unknown [id number] 2.16.840.1.918833.3.579.2 .593 1961 Unknown [id number] 2.16.840.1.544733.3.579.2 .593 1961 Unknown [id number] 2.16.840.1.973161.3.579.2 .593 1961 Unknown [id number] 2.16.840.1.703230.3.579.2 .593 1961 Unknown [id number] 2.16.840.1.484517.3.579.2 .593 1961 Unknown [id number] 2.16.840.1.784698.3.579.2 .593 1961 Unknown [id number] 2.16.840.1.349143.3.579.2 .593 1961 Unknown [id number] 2.16.840.1.531836.3.579.2 .593 1961 Unknown [id number] 2.16.840.1.697443.3.579.2 .593 1961 Unknown [id number] 2.16.840.1.220580.3.579.2 .593 1961 Unknown [id number] 2.16.840.1.389398.3.579.2 .593 1961 Unknown [id number] 2.16.840.1.528242.3.579.2 .593 1961 Unknown [id number] 2.16.840.1.876806.3.579.2 .593 1961 Unknown [id number] 2.16.840.1.745897.3.579.2 .196 1961 Unknown [id number] 2.16.840.1.895105.3.579.2 .125 1961 Unknown [id number] 2.16.840.1.947696.3.579.2 .1259 1961 Unknown [id number] 2.16.840.1.709545.3.579.2 .1259 1961 Unknown [id number] 2.16.840.1.730055.3.579.2 .125 1961 Unknown [id number] 2.16.840.1.867364.3.579.2 .125 1961 Unknown [id number] 2.16.840.1.410584.3.579.2 .125 1961 Unknown [id number] 2.16.840.1.286191.3.579.2 .1259 1961 Unknown [id number] 2.16.840.1.950913.3.579.2 .1259 1961 Unknown [id number] 2.16.840.1.365156.3.579.2 .9 1961 Unknown [id number] 2.16.840.1.032092.3.579.2 .9 1961 Unknown [id number] 2.16.840.1.302174.3.579.2 .1258 1961 Unknown [id number] 2.16.840.1.489871.3.579.2 .1258 1961 Unknown [id number] 2.16.840.1.640052.3.579.2 .1258 1961 Unknown [id number] 2.16.840.1.788506.3.579.2 .1258 1961 Unknown [id number] 2.16.840.1.752338.3.579.2 .9 1959 Medicare [id number] 1959 Unknown [id number] Medicare Medicare [id number] Unknown [id number] 2.16.840.1.708680.3.579.2 .531 Unknown [id number] 2.16.840.1.195819.3.579.2 .531 Social History Date Type Detail Facility Start: 11-18-2022 End: 10-14-2023 Tobacco smoking status MNIS Ex-smoker (finding) [facility] Start: 1960 Sex Assigned At Female [facility] Start: 03-25-2023 End: 08-16-[address] [facility] Start: 04-06-1976 End: 04-06-2016 History of tobacco use Current smoker [facility] Start: 04-06-1976 End: 04-06-2016 History of tobacco use Cigarette Smoker [facility] Start: 02-09-2023 End: 08-16-2023 Cigarettes smoked current (pack per day) - Reported 1 [facility] Start: 02-09-2023 End: 10-14-2023 Tobacco use and exposure Smokeless tobacco non-user [facility] Start: 05-18-2023 End: 01-04-2024 Alcohol intake Lifetime non-drinker (finding) [facility] [...] Facility 11-20-2022 Functional status Patient at Baseline [facility] Work Phone: Mental Status Date Assessment Result Facility 11-20-2022 Cognitive function Cognitive Sta tus Patient is Progressing Toward Baseline [facility] Work Phone: Clinical Notes 10-03-2021 to 05-18-2023 Adelaida Carrion NP - 05/18/2023 5:49 PM ESTAdelaida Carrion, BRIANA - 05/18/2023 5:47 PM Mynor Carrion NP - 05/18/2023 5:20 PM ESTAdelaida [...] (BARIATRIC MULTIVITAMINS/IRON PO) Bariatric Multivitamins/Iron nystatin (Mycostatin) 221331 UNIT/GM powder 1 application , Topical, 2 [...] Anxiety 05/18/2023 Bipolar disorder with severe depression ([facility]) 05/18/2023 Brain vascular malformation Chronic pain disorder Colon polyps Constipation Degenerative cervical disc Degenerative lumbar disc Depression ([facility]) 05/18/2023 Diastolic dysfunction Dizziness 05/18/2023 Dysphagia Fibromyalgia Gastrocnemius equinus GERD (gastroesophageal reflux disease) Heart murmur Hematoma of right breast Hemiparesis, right ([facility]) Hemorrhoid int/external hemorrhoids Hiatal hernia Iron deficiency Left foot pain 03/25/2023 Lower extremity edema Mood disorder ([facility]) mixed mood disorder OSMANY (obstructive sleep apnea) Osteoporosis ([facility]) Overactive bladder Pre-diabetes Primary hypertension ([facility]) 03/25/2023 PTSD (post-traumatic stress disorder) ([facility]) Restless leg Right knee pain Right sided weakness S/P bariatric surgery Shingles Slurred speech Stroke ([facility]) 2018 Tenosynovitis, de Quervain Thoracic [...] and prn documented in this encounter [facility] 03-23-2023 Procedure note [facility] 12-19-2022 Evaluation note Encounter Date Diagnosis Assessment Notes Dec, Skin candidiasis (ICD-10 - B37.2) Drink plenty fluids, get plenty of rest. Continue home medications as prescribed. Take the Diflucan as prescribed until gone. Follow-up with your family physician if no improvement in 2 to 3 days [facility] Other 08-17-2023 Discharge summary Author Eduardo bautista [facility] November 20, 2022 6:38am Note Date/Time November 20, 2022 6: 38am [facility] [address] [place] [address] Discharge Summary Signed Patient: Michelle Be MR#: [id number] : 1960 Acct:[id number] Age/Sex: 61 / F Adm Date: 3 Loc: Room: [address] [place] [address]: Gaudencio Monk MD Copies to: MD Adelaida Álvarez, RESERVATIONS SALES AGENT-C~ Providers Date of Discharge: 11/20/22 Discharging Provider: [...] at that time.? She reports moving to [place] from [place] in 2011 and was then diagnosed with bipolar disorder at [facility] in [place], where she still follows with a therapist.? Shereports that she has been with 7 therapists in the last 9 years and is currentlycompleting EMDR with her current therapist. Past hospitalizations: Her most recent hospitalization was 5 years ago [facility] in [place] for the same feeling she is experiencing [...] worked since 2010 due to her fibromyalgia.? [facility]. Relationships: Reports having [...] self or stop treatment, but to call [employer], 911 or come to the nearest emergency [...] Tablet 1 tab PO QID Follow Up: [facility] [Outside] [facility] [Outside] ( manager grocery: (Insert date/time here) Therapy:? (insert date/time here) [...] signed by Eduardo Monk MD> 11/20/22 0638 [facility] Work Phone: 1(100) 630-138208-16-2023 Progress note Author Eduardo bautista [facility] November 19, 2022 6:25am Note Date/Time November 19, 2022 6: 25am [facility] [address] [place] [address] Psychiatry Progress Note Signed Patient: Michelle Be MR#: [id number] : 1960 Acct:[id number] Age/Sex: 61 / F Adm Date: 3 Loc: Room: [address] [place] [address] Type : ADM IN Attending Dr: Gaudencio [...] that time Documented By: Eduardo Monk MD 06 0921 Signed By: <Electronically signed by Eduardo Monk MD> 11/19/22624 [facility] Work Phone: 1(142) 614-852908-15-2023 Progress note Author Eduardo bautista [facility] November 18, 2022 11:01am Note Date/Time November 18, 2022 10 :11am [facility] [address] [place] [address] Psychiatry Progress Note Signed Patient: Michelle Be MR#: [id number] : 1960 Acct:[id number] Age/Sex: 61 / F Adm Date: 3 Loc: 1S Room: [address] [place] [address] Type : ADM IN Attending Dr: Gaudencio [...] by requesting a schedule 2 referring to [facility] for pain management specifically every 4-6 hours [...] time Documented By: Eduardo Monk MD 3 7998 Signed By: <Electronically signed by Eduardo Monk MD> 11/18/22 1101 <Electronically signed by MD DA Rangel> 11/18/22 1011 [facility] Work Phone: 1(523) 430-541908-14-2023 History and physical note Author Eduardo bautista [facility] November 17, 2022 12:48pm Note Date/Time November 17, 2022 12 :48pm [facility] [address] [place] [address] Psychiatry H&P Signed Patient: Michelle Be MR#: [id number] : 1960 Acct:[id number] Age/Sex: 61 / F Adm Date: 3 Loc: 1S Room: 6H4197-7 Type: ADM IN Attending Dr: Gaudencio Monk [...] at that time. She reports moving to [place] from [place] in 2011 and was then diagnosed with bipolar disorder at [facility] in [place], where she still follows with a therapist. Shereports that she has been with 7 therapists in the last 9 years and is currentlycompleting EMDR with her current therapist. Past hospitalizations: Her most recent hospitalization was 5 years ago [facility] for the same feeling she is [...] worked since 2010 due to her fibromyalgia. [facility]. Relationships: Reports having [...] signed by Eduardo Monk MD> 11/17/22 1248 [facility] Work Phone: 1(662) 883-684103-23-2023 NoteCONSULTATION CONSULTATION DATE: 06/26/2022 To: Nurse Carrion [...] L5-S1 facet joint injection under fluoroscopic guidance.[id number] NotePROCEDURE: XR SHOULDER RT 2V or > [...] authenticated by: KINGSLEY CLEMENTS Date: 2022-05-09 09:21[facility] [id number] NotePROCEDURE: XR WRIST LT MIN 3 V [...] Electronically authenticated by: KINGSLEY CLEMENTS Date: 2022-04-28 13:31[facility]12-29-2022 NoteCONSULTATION CONSULTATION DATE: 04/03/2022 HISTORY OF [...] q.h.s., Neurontin per her PCP, Requip and Manuelaien. She recently got her medical [...] her in three months, unless otherwise indicated.[facility] [id number] NoteCONSULTATION CONSULTATION DATE: 01/02/2022 This is a [...] Macedo to [facility] in [place] for the compounded cream. She needs a [...] in three months' time unless otherwise indicated.[facility] [id number] NotePROCEDURE: XR ANKLE RT MIN 3 VIEWS, [...] Electronically authenticated by: KINGSLEY CLEMENTS Date: 2022-01-01 13:11[facility]09-28-2022 NotePROCEDURE: XR ANKLE RT MIN 3 [...] Electronically authenticated by: KINGSLEY CLEMENTS Date: 2022-01-01 13:11[facility]08-18-2022 NotePROCEDURE: XR FOOT RT MIN 3 VIEWS HISTORY: Pain in right foot , chronic COMPARISON: XR foot right 2020 FINDINGS: BONES:No fracture, dislocation, bone lesion. Small calcaneal degenerative enthesophytes. SOFT TISSUES:No visible soft tissue swelling. EFFUSION:None visible. OTHER: Negative. IMPRESSION: 1. No acute bone abnormality or significant degenerative joint disease. Electronically authenticated by: KINGSLEY CLEMENTS Date: 2021-11-21 16:13[facility]06-30-2022 NoteCONSULTATION CONSULTATION DATE: 10/03/2021 This is [...] patient agrees with the plan of care. [facility] Signed and Approved by: ZELDA MCDANIEL . 10/10/2021 10:22:00[facility] Diagnosis Onset Date Resolution Status Allergies acute Bipolar 2 disorder acute Hypertension acute Morbid obesity with BMI of 45.0-49.9, adult acute OSMANY (obstructive sleep apnea) acute Restless legs syndrome acute [facility] Work Phone: Evaluation noteNo [employer] Other Evaluation noteNo assessment information available [facility] Work Phone: Evaluation note* Diagnosis Encounter [...] HealthcareHistory and physical note Author Jace Graham [facility] March 23, 2023 11:21am Note Date/Time March 23, 2023 11:21am [facility] [address] [place] [address] Gastroenterology H&P Signed Patient: Michelle Be MR#: [id number] : 1960 Acct:[id number] Age/Sex: 62 / F Adm Date: 3 [...] signed by Jace Graham MD> 03/23/23 1121 [facility] Work Phone: History general Narrative - [...] see above surg Hospitalization History stroke 2018 [facility] Other Hospital Discharge instructions Additional Instructions Regular Diet No Activity [facility] Work Phone: Hospital Discharge [...] years. -Follow up with PCP. -Office number [phone].[facility] Work Phone: Summary Purpose Family History [...] section and content) DATE CREATED AUTHOR 02/18/[address] [facility] DATE CREATED AUTHOR AUTHOR'S ORGANIZ ATION 11/15/2021 [facility] DATE CREATED AUTHOR AUTHOR'S ORGANIZ ATION 08/16/2022 [facility] DATE CREATED AUTHOR AUTHOR'S ORGANIZ ATION 08/11/2023 [facility] DATE CREATED AUTHOR AUTHOR'S ORGANIZ ATION 12/23/2023 [facility] DATE CREATED AUTHOR AUTHOR'S ORGANIZ ATION 01/04/2024 [facility] Care Teams (unrecognized sec tion and content) Team Status: Active Member Role Status Dates Adelaida Carrion Primary Care Provider Active Team Status: Inactive Member Role Status Dates [facility]ida [facility] Primary Care Provider Active Gaudencio Monk MD Admit Provider, Attending Pr ovider Active Andreina Vieira , JOHANN Other Provider Active Camilla Pina , JOHANN Other Provider Active Ruchi Hurtado , JOHANN Other Provider Active Lisa Crooks , JOHANN Other Provider Active Tash Mejias , JOHANN Other Provider Active Elzbieta Kim , JHOANN Other Provider Active Walker Pringle MD Other Provider Active Adelaida Marsh , [employer] Other Provider Active Jessica Murillo , DO [...] MD Other Provider Active Joellen Le , RESERVATIONS SALES AGENT-C Other Provider Active Severo Yancey MD Other Provider Active Rao Webber MD Other Provider Active Yuan Shi MD Other Provider Active Delroy Ramirez MD Other Provider Active Berta Comer , DO Other Provider Active Negrito Ruiz , DO Other Provider Active Lacho Singh , DO Other Provider Active Rachana Hobson [employer] Other Provider Active Rob Lake , DO Other Provider Active Jeff Alvarez MD Other Provider Active Urmila Rinaldi [employer] Other Provider Active Bina Mayberry [employer] Other Provider Active Mir Bradford MD Other Provider Active Te Da Silva MD Other Provider Active Debra Landaverde , JOHANN Other Provider Active Team Status: Inactive Member Role Status Dates [facility]ida [facility] Primary Care Provider Active Jace Graham MD Attending Provider Active Financial Retirement Plan Specialist Relationship Specialty Start Date End Date José Luis Roberts MD [address] [place] [phone] PCP - General Family Medicine 05/18/23 Adelaida Carrion NP [address] [place] [phone] Referring Physician Nurse Practitioner 10/14/22 Financial Retirement Plan Specialist Relationship Specialty Start Date End Date José Luis Roberts MD [address] [place] [phone] PCP - General Family Medicine 05/18/23 Adelaida Carrion NP [address] [place] [phone] Referring Physician Nurse Practitioner 10/14/22 Financial Retirement Plan Specialist Relationship Specialty Start Date End Date José Luis Roberts MD [address] [place] [phone] PCP - General Family Medicine 05/18/23 Adelaida Carrion NP [address] [place] [address] Referring Physician Nurse Practitioner 10/14/22 Financial Retirement Plan Specialist Relationship Specialty Start Date End Date José Luis Roberts MD [address] [place] [phone] PCP - General Family Medicine 05/18/23 Adelaida Carrion NP Referring Physician Nurse Practitioner 10/14/22 Miriam Suarez DO [address] [place] [address] Referring Physician Neurology 06/29/23 [place] De [place] LPN Licensed Practical Nurse Family Medicine 12/18/23 Financial Retirement Plan Specialist Relationship Specialty Start Date End Date José Luis Roberts MD [address] [place] [address] PCP - General Family Medicine 05/18/23 Adelaida Carrion NP Referring Physician Nurse Practitioner 10/14/22 Miriam Suarez DO [address] [place] [address] Referring Physician Neurology 06/29/23 [place] De Leon [...] BE BASED ON THE PRIMARY CLINICAL RECORDS. [employer] [facility] [employer] provides no warranty or guarantee of the accuracy or completeness of information in this document.
--- NOTE | 2024-01-25 12:44 | PM.CN ---
Consult Note: HPI Data of Consult Patient: known to practice within the last 3 years Consult date: 01/25/24 Requesting Physician: Bhakti Culp NP Primary Care Provider: Adelaida Carrion NP Consult Narrative Reason for consult: midback pain Narrative: 63yof who presents for assessment. recently underwent second diagnostic bilateral t10-11, 11-12 mbb. notes significant relief of >80% for over 2 hours and subsequent return to baseline. cc:: CC: Bhakti Culp NP Review of Systems ROS Status of ROS 10 or more systems reviewed and unremarkable except as noted in history and below [facility] Medical History FH: bariatric surgery ?Z84.89 - Family history of other specified conditions (ICD-10) Upper back pain ?M54.9 - Dorsalgia, unspecified (ICD-10) Osteoarthritis ?M19.90 - Unspecified osteoarthritis, unspecified site (ICD-10) Neck pain ?M54.2 - Cervicalgia (ICD-10) Low back pain ?M54.50 - Low back pain, unspecified (ICD-10) Fibromyalgia ?M79.7 - Fibromyalgia (ICD-10) Bipolar 1 disorder ?F31.9 - Bipolar disorder, unspecified (ICD-10) Acid reflux ?K21.9 - Gastro-esophageal reflux disease without esophagitis (ICD-10) Obesity ?E66.9 - Obesity, unspecified (ICD-10) Sleep apnea ?G47.30 - Sleep apnea, unspecified (ICD-10) Heart murmur ?R01.1 - Cardiac murmur, unspecified (ICD-10) High cholesterol ?E78.00 - Pure hypercholesterolemia, unspecified (ICD-10) Hypertension ?I10 - Essential (primary) hypertension (ICD-10) Surgical History S/P dilatation and curettage ?Z98.890 - Other specified postprocedural states (ICD-10) H/O breast biopsy ?Z98.890 - Other specified postprocedural states (ICD-10) S/P ORIF (open reduction internal fixation) fracture ?Z98.890 - Other specified postprocedural states (ICD-10) ?Z87.81 - Personal history of (healed) traumatic fracture (ICD-10) Hx of laparoscopic gastric banding ?Z98.84 - Bariatric surgery status (ICD-10) History of tonsillectomy and adenoidectomy ?Z90.89 - Acquired absence of other organs (ICD-10) History of appendectomy ?Z90.49 - Acquired absence of other specified parts of digestive tract (ICD-10) History of hemilaminectomy ?Z98.890 - Other specified postprocedural states (ICD-10) History of cholecystectomy ?Z90.49 - Acquired absence of other specified parts of digestive tract (ICD-10) Previous section ?Z98.891 - History of uterine scar from previous surgery (ICD-10) Social History Smoking status: Former smoker Meds Home Medications and Allergies Home Medications ?Medication ?Instructions ?Recorded ?Confirmed ?Type amlodipine 10 mg tablet (Norvasc) 10 mg PO DAILY 09/10/22 01/19/24 History biotin 1 mg capsule 5 mg PO DAILY 09/10/22 01/19/24 History cariprazine 4.5 mg capsule 4.5 mg PO Q24H 09/10/22 01/19/24 History (Vraylar) cetirizine 10 mg tablet (24Hour 10 mg PO DAILY PRN allergy symptoms 09/10/22 01/19/24 History Allergy) clonazepam 1 mg tablet 1 mg Q12H 09/10/22 History duloxetine 60 mg capsule,delayed mg PO BID 09/10/22 History release ferrous sulfate 325 mg (65 mg 325 mg PO BID 09/10/22 01/19/24 History iron) tablet (FeroSul) losartan 50 mg tablet (Cozaar) 100 mg PO DAILY 09/10/22 01/19/24 History magnesium 200 mg tablet 400 mg PO QDAY 09/10/22 01/19/24 History melatonin 12 mg tablet 12 mg PO .HS PRN sleep 09/10/22 01/19/24 History omeprazole 20 mg capsule,delayed 20 mg QDAY 09/10/22 History release ropinirole 4 mg tablet mg QDAY 09/10/22 History trazodone 150 mg tablet 300 mg .HS 09/10/22 History tizanidine 2 mg tablet 2 mg PO TID PRN muscle spasticity 10/01/23 01/19/24 Rx #90 tabs fluticasone propionate 50 1 spray intranasal DAILY PRN 10/20/23 01/19/24 History mcg/actuation nasal allergy symptoms spray,suspension (Flonase Allergy Relief) spironolactone 50 mg tablet 50 mg PO DAILY 10/20/23 01/19/24 History gabapentin 300 mg capsule mg BID 11/03/23 History calcium citrate 200 mg PO QID 11/04/23 01/19/24 History carvedilol 12.5 mg tablet mg 11/04/23 History multivitamin 1 tab PO DAILY 11/04/23 01/19/24 History Allergies Allergy/AdvReac Type Severity Reaction Status Date / Time levetiracetam (From Keppra) Allergy Severe Unknown Verified 01/19/24 06:52 adhesive Allergy Intermediate Blister Verified 01/19/24 06:52 Penicillins Allergy Intermediate Unknown Verified 01/19/24 06:52 tetracycline Allergy Intermediate Unknown Verified 01/19/24 06:52 eszopiclone (From Lunesta) Allergy Unknown Verified 01/19/24 06:52 milnacipran (From Savella) AdvReac Intermediate Agitated Verified 01/19/24 06:52 prochlorperazine (From AdvReac Intermediate Agitated Verified 01/19/24 06:52 Compazine) Exam Narrative Exam Narrative: Psych-alert and oriented x 3. Attentive and appropriate, constitutionally normal, displays normal mood and affect per situation.? There are no obvious deficits in memory, reasoning, or intellect.? Skin-no obvious rashes, bruising, erythema noted to the patient's area of pain. Extremities- extremities are warm with minimal edema and palpable pulses. Thoracic- tenderness to palpation noted in the thoracic spine and paraspinal musculature.? Pain is elicited with extension, and lateral rotation of the thoracic spine. Range of motion is slightly diminished with these motions due to pain. Facet loading maneuvers are positive bilaterally and do appear to be concordant with the patient's normal complaints of pain.? Coordination remains intact.? Gait remains non-antalgic. Assessment and Plan Assessment and Plan (1) Thoracic spondylosis: Plan 63yof who presents for assessment. significant benefit from two separate diagnostic medial branch blocks. given significant response, prudent to proceed with t10-11, 11-12 rfa under fluoroscopic guidance, one side at a time. will utilize iv sedation. she is in agreement. meds reviewed, no changes. follow up after procedure.
== END 2024-01-25 11:55 | disposition home or self-care (01) ==
LOC: PM 11:54
PROVIDERS: PCP Nurse Practitioner; Visit Provider Nurse Practitioner
DX: M47.814 Spondylosis without myelopathy or radiculopathy, thoracic region (principal)
CPT/HCPCS: G0463

== ENCOUNTER 2024-02-09 06:34 | Day surgery (SDC) | payer MEDICARE, SELFPAY ==
--- OUTSIDE RECORDS SUMMARY | 2024-02-09 06:39 | XMS_ITS | CCD ---
Author Organization [facility] Care Team Providers Care Sheltered Workshop Executive Director Name Role Phone EBRAHEIM, SUKI Admitting Unavailable EBRAHEIM, SUKI Attending Unavailable AICHHOLZ, ADELAIDA Referring Unavailable AICHHOLZ, ADELAIDA Primary Care Unavailable [place] Procedure Practitioner Unavailab SUKI Jacob Surgeon Unavailable [place] Procedure Practitioner Unavailab CHAPARRITA Goncalves Surgeon Unavailable BRIDGETTE MACEDO Admitting Unavailable BRIDGETTE MACEDO Attending Unavailable AICHHOLZ, TRIAL MANAGER ADELAIDA Primary Care Unavailable ZIMMER ., DR FINA Iverson Admitting Unavailable ZIMMER ., DR FINA Iverson Attending Unavailable AICHHOLZ, TRIAL MANAGER ADELAIDA Primary Care Unavailable MCDANIEL ., ZELDA Consulting Unavailable LAKSHMIPATHY ., NARENDRANATH Consulting Paula vailable LAKSHMIPATHY ., NARENDRANATH Admitting Paula vailable LAKSHMIPATHY ., NARENDRANATH Attending Paula vailable AICHHOLZ, TRIAL MANAGER ADELAIDA Primary Care Unavailable LAKSHMIPATHY ., NARENDRANATH Consulting Paula vailable AICHHOLZ, TRIAL MANAGER ADELAIDA Primary Care Unavailable MARKER ., DR CHAUDHRY Admitting Unavailable MARKER ., DR CHAUDHRY Attending Unavailable MARKER ., DR CHAUDHRY Consulting Unavailable AICHHOLZ, TRIAL MANAGER ADELAIDA Admitting Unavailable AICHHOLZ, TRIAL MANAGER ADELAIDA Attending Unavailable AICHHOLZ, TRIAL MANAGER ADELAIDA Primary Care Unavailable ZIMMER ., DR FINA Iverson Admitting Unavailable ZIMMER ., DR FINA Iverson Attending Unavailable AICHHOLZ, TRIAL MANAGER ADELAIDA Primary Care Unavailable MCDANIEL ., ZELDA Consulting Unavailable ZIMMER ., DR FINA Iverson Admitting Unavailable ZIMMER ., DR FINA Iverson Attending Unavailable AICHHOLZ, TRIAL MANAGER ADELAIDA Primary Care Unavailable MCDANIEL ., ZELDA Consulting Unavailable AICHHOLZ, TRIAL MANAGER ADELAIDA Admitting Unavailable AICHHOLZ, TRIAL MANAGER ADELAIDA Attending Unavailable AICHHOLZ, TRIAL MANAGER ADELAIDA Primary Care Unavailable AICHHOLZ, TRIAL MANAGER ADELAIDA Consulting Unavailable AICHOLZ, TRIAL MANAGER ADELAIDA Admitting Unavailable AICHHOLZ, TRIAL MANAGER ADELAIDA Attending Unavailable AICHOLZ, [facility] ADELAIDA Primary Care Unavailable AICHHOLZ, TRIAL MANAGER ADELAIDA Consulting Unavailable MISC, DR COTE Admitting Unavailable MISC, DR COTE Attending Unavailable AICHOLZ, [facility] ADELAIDA Primary Care Unavailable AICHHOLZ, TRIAL MANAGER ADELAIDA Consulting Unavailable ELYSSA, DR COTE Consulting Unavailable STARR, DR KINGSLEY Atkins Consulting Unavailable ZIMMER ., DR FINA Iverson Admitting Unavailable ZIMMER ., DR FINA Iverson Attending Unavailable AICHOLZ, [facility] ADELAIDA Primary Care Unavailable MCDANIEL ., ZELDA Consulting Unavailable ZIMMER ., DR FINA Iverson Admitting Unavailable ZIMMER ., DR FINA Iverson Attending Unavailable [facility], [facility] Primary Care Unavailable ZIMMER ., DR FINA Iverson Consulting Unavailable OMID LAY Consulting Unavailable ZIMMER ., DR FINA Iverson Admitting Unavailable ZIMMER ., DR FINA Iverson Attending Unavailable [facility], [facility] Primary Care Unavailable MCDANIEL ., ZELDA Consulting Unavailable [facility], [facility] Primary Care Unavailable HALKER ., ARIAN Admitting Unavailable HALKER ., ARIAN Attending Unavailable LAKSHMIPATHY ., NARENDRANATH Consulting Paula vailable HALKER ., ARIAN Consulting Unavailable LAKSHMIPATHY ., NARENDRANATH Admitting Paula vailable LAKSHMIPATHY ., NARENDRANATH Attending Paula vailable [facility], [facility] Primary Care Unavailable LAKSHMIPATHY ., NARENDRANATH Consulting Paula vailable AICHOLZ, TRIAL MANAGER ADELAIDA Admitting Unavailable AICHOLZ, TRIAL MANAGER ADELAIDA Attending Unavailable AICHOLZ, TRIAL MANAGER ADELAIDA Primary Care Unavailable AICHHOLZ, TRIAL MANAGER ADELAIDA Consulting Unavailable BRIDGETTE MACEDO Admitting Unavailable BRIDGETTE MACEDO Attending Unavailable AICHOLZ, TRIAL MANAGER ADELAIDA Primary Care Unavailable STARR, DR KINGSLEY Atkins Consulting Unavailable BRIDGETTE MACEDO Consulting Unavailable GILMER NEVES Admitting Unavailable GILMER NEVES Attending Unavailable PURA, GILMER Consulting Unavailable AICHOLZ, TRIAL MANAGER ADELAIDA Primary Care Unavailable AICHOLZ, TRIAL MANAGER ADELAIDA Primary Care Unavailable DR WILLI RINALDI Admitting Unavailable DEEJAY, DR WILLI Atkins Attending Unavailable DR WILLI RINALDI Consulting Unavailable AICHOLZ, TRIAL MANAGER ADELAIDA Primary Care Unavailable ALMAZ ., DANNY Admitting Unavailable ALMAZ ., DANNY Attending Unavailable DR KINGSLEY CLEMENTS Consulting Unavailable ALMAZ ., DANNY Consulting Unavailable LAKSHMIPATHY ., NARENDRANATH Admitting Paula vailable LAKSHMIPATHY ., NARENDRANATH Attending Paula vailable AICHHOLZ, TRIAL MANAGER ADELAIDA Primary Care Unavailable AICHHOLZ, TRIAL MANAGER ADELAIDA Admitting Unavailable AICHHOLZ, TRIAL MANAGER ADELAIDA Attending Unavailable AICHHOLZ, TRIAL MANAGER ADELAIDA Primary Care Unavailable AICHHOLZ, TRIAL MANAGER ADELAIDA Admitting Unavailable AICHHOLZ, TRIAL MANAGER ADELAIDA Attending Unavailable AICHHOLZ, TRIAL MANAGER ADELAIDA Primary Care Unavailable AICHHOLZ, TRIAL MANAGER ADELAIDA Consulting Unavailable ZIEBER, DR KINGSLEY Atkins Consulting Unavailable HALKER ., ARIAN Admitting Unavailable HALKER ., ARIAN Attending Unavailable AICHHOLZ, TRIAL MANAGER ADELAIDA Primary Care Unavailable Aichholz, Adelaida J Primary Care Provider [phone] MD Gaudencio Monk Admit Provider [phone] MD Gaudencio Monk Attending Provider JOHANN Vieira Other Provider Unavailable JOHANN Pina Other Provider Unavailable JOHANN Hurtado Other Provider Unavailable JOHANN Crooks Other Provider Unavailable JOHANN Mejias Other Provider Unavailable JOHANN Kim Other Provider Unavailable MD Walker Pringle Other Provider Dilans, FILM AND VIDEO GRAPHICS DESIGNER Adelaida Huddleston Other Provider DO Jessica Murillo Other Provider MD Obdulio Bragg Other Provider DO Joon Cristina Other Provider MD oTrin Robert Other Provider MD Dawn Barrera Other Provider [phone] Karlene ANP- Mari Other Provider [phone] MD Sofi Almanzar Other Provider [phone] MD Sharad Gallegos Other Provider MD Aby Cain Other Provider MD Hillary Carrera Other Provider DO Julio César Mckeon Other Provider [phone] MD Valentine Mak Other Provider MD Raymond Strong Other Provider BRIANA Le-C Joellen Mcnair Other Provider [phone] MD Severo Yancey Other Provider MD Rao Webber Other Provider MD Yuan Shi Other Provider MD Delroy Ramirez Other Provider DO Berta Comer Other Provider DO Negrito Ruiz Other Provider DO Lacho Singh Other Provider ROSS Hobson Other Provider DO Rob Lake Other Provider MD Sae Alvarezayquentin Huddleston Other Provider ROSS Rinaldi Other Provider ROSS Mayberry Other Provider MD Mir Bradford Other Provider MD Te Da Silva Other Provider JHOANN Landaverde Other Provider Unavailable Rosemary Kirkland Unavailable Jace Graham Unavailable Adelaida Carrion Primary Care Provider MD Jace Graham Attending Provider [phone] Sheyla PLASTIC DIE MAKER APPRENTICE, Adelaida Unavailable José Luis Roberts MD Primary Care Provider [phone] Sheyla PLASTIC DIE MAKER APPRENTICE, Adelaida Unavailable Miriam Suarez DO Unavailable Diana De Leon LPN Unavailable Unavailable Jace Graham Attending Unavailable Jace Graham Admitting Unavailable Aichholz, Adelaida J Primary Care Unavailable Aichholz, Adelaida J Primary Care Unavailable Eduardo Monk Attending Unavailab le Dat Monkelrahman Admitting Unavailab kayleen Garner MD, [place] Provider Primary Care Provi kellee Aichholz PLASTIC DIE MAKER APPRENTICE, Adelaida Unavailable ASHLEIGH HINES Attending Unavailable AICHHOLZ, ADELAIDA Attending Unavailable ASHLEIGH HINES Attending Unavailable AICHHOLZ, ADELAIDA Attending Unavailable AICHHOLZ, ADELAIDA Attending Unavailable AICHHOLZ, ADELAIDA Attending Unavailable AICHHOLZ, ADELAIDA Attending Unavailable AICHHOLZ, ADELAIDA Attending Unavailable SONAM BROWN Attending Unavailable JR. HARRY GEORGE C Attending Unavaila ble AICHHOLZ, ADELAIDA Attending Unavailable SONAM BROWN Attending Unavailable JUANY TREJO Attending Unavailable AICHHOLZ, ADELAIDA Attending Unavailable AICHHOLZ, ADELAIDA Attending Unavailable AICHHOLZ, ADELAIDA Attending Unavailable Jamee JAIMES, Syeda King Attending Unavailable Jamee JAIMES, Syeda King Attending Unavailable José Luis Roberts MD Primary Care Provider [phone] Allergies Allergy Classification Reported Allergen(s) Allergy Type Date of Onset Reaction(s) Facility (7 sources) Adhesive Tape; Translations: [ADHESIVE TAPE] Propensity to adverse reactions (disorder) 04-06-19 14 rash [facility] Repository (3 sources) levETIRAcetam; Translations: [KEPPRA] Drug Allergy 07-02-19 19 [facility] Repository (3 sources) milnacipran; Translations: [SAVELLA] Drug Allergy 03-14-20 13 [facility] Repository (1 source) Penicillin; Translations: [PENICILLIN] Drug Allergy 01-16-20 18 [facility] Repository (5 sources) Prochlorperazin e; Translations: [COMPAZINE] Drug Allergy 03-14-20 13 agitation [facility] Repository (18 sources) Tetracycline; Translations: [TETRACYCLINE] Drug Allergy 04-06-19 13 Hives, Unknown [facility] Repository (4 sources) Penicillins Drug allergy (disorder) 04-06-19 13 Unknown Reaction [facility] Repository (15 sources) levETIRAcetam; Translations: [levetiracetam] Drug Allergy 12-13-19 22 Hallucinations , Other [facility] (15 sources) milnacipran; Translations: [milnacipran] Drug Allergy 12-13-19 22 hives, Hallucinations , Other, Unknown [facility] (13 sources) Prochlorperazin e; Translations: [prochlorperazi ne] Drug Allergy 12-13-19 22 Unknown, Other [facility] (2 sources) Penicillin G Drug Allergy as a child [facility] Other (2 sources) Tetracaine Drug Allergy Unknown [facility] Other (10 sources) Penicillins Drug Intolerance 12-13-19 22 Anaphylaxis [facility] (10 sources) Other Propensity to adverse reactions 12-13-19 22 Other [facility] (10 sources) Wound Dressing Adhesive Drug Allergy 09-20-19 23 Rash, Unknown [facility] (6 sources) Eszopiclone Drug Allergy 09-21-19 24 Hallucinations , Anaphylaxis [facility] (1 source) Penicillin Drug Allergy 12-20-19 23 [facility] Repository (1 source) Penicillins Drug allergy (disorder) 03-23-20 23 [facility] Repository (1 source) Tetracaine Drug Allergy 12-20-19 23 [facility] Repository Medications Current Medications Medication Drug Class(es) Dates Sig (Normalized) Sig (Original) amLODIPine 10 mg oral tablet (14 sources) Dihydropyridine Calcium Channel Jim Start: 01-04-2024 [...] Orally Active biotin 5 mg oral tablet (12 sources) biotin 5 MG tabl et Pt taking OTC ([employer]) Active biotin 1 MG caps ule Biotin [...] 2022 7:25pm Calcium Citrate / Vitamin D (10 sources) Calcium Citrate- Vitamin D (CITRACAL + D PO) Pt taking OTC ([employer]) Active Calcium Citrate- Vitamin D (CITRACAL + D PO) Citracal + D 0 Active cariprazine 4.5 mg oral capsule (14 sources) Atypical Antipsychotic Start: 09-21-2023 take 1 capsule by mouth once daily Cariprazine HCl (Vraylar) 4.5 MG capsule Take 4.5 mg by mouth Daily 09/21/2023 Active Start: 11-17-2022 take 1 capsule by mo ut once daily Cariprazine (Vraylar) 4.5 mg capsule Active 4.5 MG PO Daily November 16, 2022 11:00pm carvedilol 12.5 mg oral tablet (10 sources) alpha-Adrenergic Jim, beta-Adrenergic Jim Start: 01-04-2024 [...] Active cetirizine hydrochloride 10 mg oral tablet (14 sources) Histamine-1 Receptor Antagonist Start: 01-04-2024 End: 04-03-2024 take 1 tablet by mouth once daily cetirizine (ZyrTEC) 10 MG tablet Indications: Allergic rhinitis, unspecified Take 1 tablet (10 mg) by mouth Daily 90 tablet 1 01/04/2024 04/03/2024 Active Start: 11-17-2022 take 10 mg by mouth once daily Cetirizine Active 10 MG PO Daily November 16, 2022 11:00pm clonazePAM 1 mg oral tablet (16 sources) Benzodiazepine Start: 12-13-2023 End: 02-04-2024 take 1 tablet by mouth twice daily as needed for anxiety clonazePAM (KlonoPIN) 1 MG tablet Indications: Restless leg TAKE 1 TABLET BY MOUTH TWICE DAILY NEEDED FOR ANXIETY 60 tablet 02/04/2024 Active Start: 11-17-2022 take 1 mg by mouth twice daily Clonazepam Active 1 MG PO Twice daily November 16, 2022 11:00pm Start: 05-27-2018 End: 11-17-2022 take 2 mg by mouth every twelve hours Clonazepam Discontinued 2 MG PO Q12H May 27, 2018 12:00am November 17, 2022 12:45am DULoxetine 60 mg delayed release oral capsule (16 sources) Serotonin and Norepinephrine Reuptake Inhibitor Start: [...] DAY Active fluconazole 150 mg oral tablet (16 sources) Azole Antifungal Start: 11-27-2023 fluconazole ( [...] propionate 0.05 mg/actuat metered dose nasal spray (14 sources) Corticosteroid Start: 01-04-2024 End: 02-03-2024 take 2 spray(s) nasal route once daily fluticasone (Flonase) 50 MCG/ACT nasal spray Indications: Allergic rhinitis, unspecified Administer 2 sprays into each nostril Daily 48 g 1 01/04/2024 Active Start: 11-17-2022 Fluticasone Pr opionate Active [...] 0 Active gabapentin 300 mg oral capsule (20 sources) Anti-epileptic Agent Start: 10-14-2023 End: 04-10-2024 [...] Active losartan potassium 100 mg oral tablet (14 sources) Angiotensin 2 Receptor Jim Start: End: 4 take 1 tablet by mouth once daily losartan (Cozaar) 100 MG tablet Indications: Essential (primary) hypertension (CMS/HCC) Take 1 tablet (100 mg) by mouth Daily 90 tablet 1 01/04/2024 04/03/2024 Active Start: 11-17-2022 take 100 mg by mouth once lissett y Losartan Active 100 MG PO Daily November 16, 2022 11:00pm Magnesium (12 sources) Magnesium 400 MG capsule Pt taking OTC([employer]) Active Magnesium 400 MG capsule magnesium 0 Active take 1 tablet by mouth once lissett y Magnesium 400 MG 1 tablet with a meal Orally Once a day Active melatonin 10 mg oral tablet (9 sources) Start: 03-23-2023 take 20 mg by mouth at bedtime Melatonin Active 20 MG PO Bedtime March 23, 2023 12:00am take 1 tablet by mouth at bedtim e Melatonin 12 MG tablet Indications: from [employer] Take 1 tablet by mouth at bedtime Active take 2 tablets by [facility] once daily at bedtime Melatonin 10 MG 2 TABLETS Orally QHS Act hemant Melatonin 12 MG tablet dispe rsible (4 sources) Melatonin 12 MG tablet dispersible 1 (one) time each day at the same time. 0 Active Multiple Vitamins-Minerals ( BARIATRIC MULTIVITAMINS/IRON PO) (10 sources) Multiple Vitamin s-Minerals (BARIATRIC MULTIVITAMINS/IRON PO) Pt taking OTC ([employer]) Active Multiple Vitamin s-Minerals (BARIATRIC MULTIVITAMINS/IRON PO) Bariatric Multivitamins/Iron 0 Active Vvgqfymkvmtd-Imc-Qqzm-Fa-Vit K (Bariatric Multivitamins) 45 mg iron- 800 mcg-120 mcg Capsule (2 sources) Start: 11-17-2022 take 1 capsule by mouth once daily Lblfjxmiarry-Ejf-Cdql-Fa-Vit K (Bariatric Multivitamins) 45 mg iron- 800 mcg-120 mcg Capsule Active 1 CAP PO Daily November 16, 2022 11:00pm Start: 11-17-2022 take 1 capsule by [facility] once daily Dwmcvoxjsaxx-Ghn-Nciz-Fa-Vit K (Bariatri c Multivitamins) 45 mg iron- 800 mcg-120 mcg Capsule Active 1 CAP PO Daily November 17, 2022 12:00am nystatin 100 unt/mg topical powder (10 sources) Polyene Antifungal nystatin (Myc ostatin) 342220 UNIT/GM powder Apply 1 application topically in [...] omeprazole 20 mg delayed release oral capsule (13 sources) Proton Pump Inhibitor Start: 10-05-2023 take [...] 2022 11:00pm rOPINIRole 4 mg oral tablet (14 sources) Nonergot Dopamine Agonist Start: 10-14-2023 take [...] 06/02/2022 Active spironolactone 25 mg oral tablet (6 sources) Aldosterone Antagonist Start: 12-30-2023 End: 01-29-2024 take 2 tablets by mouth once daily spironolactone (Aldactone) 25 MG tablet Indications: Lower extremity edema Take 2 tablets (50 mg) by mouth Daily 60 tablet 2 12/30/2023 Active sulfamethoxazole 800 mg / trimethoprim 160 mg oral tablet (4 sources) Dihydrofolate Reductase Inhibitor Antibacterial, Sulfonamide Antimicrobial Start: 01-21-2024 take 1 tablet by mouth once in the morning, then take 1 tablet by mouth once at bedtime sulfamethoxazole-tr imethoprim (Bactrim DS) 800-160 MG per tablet Take 1 tablet by mouth in the morning and 1 tablet before bedtime. 01/21/2024 Active tiZANidine 4 mg oral tablet (14 sources) Central alpha-2 Adrenergic Agonist Start: 12-12-2023 [...] Active traZODone hydrochloride 150 mg oral tablet (16 sources) Serotonin Reuptake Inhibitor Start: 11-17-2022 take [...] 2 mg oral capsule (2 sources) alpha-Adrenergic Jmi Start: 05-27-2018 End: 11-17-2022 take 2 mg [...] Date Documented Date Episodic/Chronic Acute cerebrovascular disease (10 sources) Cerebrovascular accident; Translations: [Cerebral infarction, unspecified] Onset: 04-06-19 18 05-18-2023 Chronic Allergic reactions (4 sources) Unspecified contact dermatitis, unspecified cause; Translations: [Allergic condition] Onset: 09-14-19 22 11-18-2022 Episodic Anxiety disorders (20 sources) Post-traumatic stress disorder, unspecified; Translations: [Anxiety disorder, unspecified] Onset: 04-29-19 23 05-18-2023 Chronic Cardiac and circulatory congenital anomalies (20 sources) Cerebrovascular disease; Translations: [Other malformations of cerebral vessels] Onset: 05-18-19 24 05-18-2023 Chronic Diabetes mellitus without complication (2 sources) Diabetes mellitus; Translations: [Type 2 diabetes mellitus without complications] 05-31-2018 Chronic Disorders of lipid metabolism (1 source) Pure hypercholesterolemia, unspecified; Translations: [PURE HYPERCHOLESTEROLEMIA UNSPEC] Onset: 07-17-19 Chronic Esophageal disorders (13 sources) Gastro-esophageal reflux disease without esophagitis; Translations: [Gastroesophageal reflux disease] Onset: 07-17-19 23 05-18-2023 Chronic Essential hypertension (20 sources) Essential (primary) hypertension; Translations: [Hypertensive disorder] Onset: 07-17-19 Chronic Immunizations and screening for infectious disease (6 sources) Encounter for immunization; Translations: [Needs influenza immunization] Onset: 02-22-20 22 01-28-2024 Episodic Mood disorders (20 sources) Bipolar disorder, current episode depressed, severe, without psychotic features; Translations: [Unspecified mood [affective] disorder] Onset: 11-23-19 22 11-17-2022 Chronic Osteoarthritis (11 sources) Primary osteoarthritis, right ankle and foot; Translations: [Osteoarthritis of knee] Onset: 10-03-19 18 03-25-2023 Chronic Osteoporosis (10 sources) Osteoporosis; Translations: [Age-related osteoporosis without current pathological fracture] Onset: 05-18-19 24 05-18-2023 Chronic Other and ill-defined heart disease (10 sources) Diastolic dysfunction; Translations: [Other ill-defined heart [...] Episodic Other diseases of bladder and urethra (12 sources) Overactive bladder; Translations: [Overactive bladder] Onset: 05-18-1905-18-2023 Chronic Other gastrointestinal disorders (1 source) Bariatric surgery status; Translations: [BARIATRIC SURGERY STATUS] Onset: 08-01-19 Episodic Other hereditary and degenerative nervous system conditions (13 sources) Restless legs; Translations: [Restless legs syndrome] [...] Onset: 04-03-20 Chronic Other nervous system disorders (12 sources) Chronic pain syndrome; Translations: [Chronic pain syndrome] Onset: 05-18-19 24 05-18-2023 Chronic Other nervous system disorders (6 sources) Metabolic encephalopathy; Translations: [Metabolic encephalopathy] Onset: 08-26-19 24 12-08-2023 Chronic Other nervous system disorders (6 sources) Lesion of brain; Translations: [Disorder of brain, unspecified] Onset: 10-11-19 24 10-11-2023 Chronic Other nervous system disorders (6 sources) Carpal tunnel syndrome of right wrist; Translations: [Carpal tunnel syndrome, right upper limb] Onset: 10-11-1910-11-2023 Chronic Other nervous system disorders (6 sources) Disorder of brain; 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] Onset: 10-11-1910-11-2023 Chronic Other non-traumatic joint disorders (4 sources) [...] Chronic Other nutritional; endocrine; and metabolic disorders (14 sources) Morbid obesity; Translations: [Morbid (severe) obesity due to excess calories] Onset: 03-25-2003-25-2023 Chronic Other upper respiratory disease (10 sources) Allergic rhinitis; Translations: [Allergic rhinitis, unspecified] Onset: 05-18-1905-18-2023 Chronic Paralysis (10 sources) Right hemiparesis; Translations: [Hemiplegia, unspecified affecting right dominant side] Onset: 05-18-1905-18-2023 Chronic Residual codes; unclassified (1 source) Sleep apnea, unspecified; Translations: [SLEEP APNEA UNSPECIFIED] Onset: 07-17-19 Chronic Residual codes; unclassified (14 sources) Obstructive sleep apnea syndrome; Translations: [Obstructive [...] pain ] Onset: 08-24-1911-20-2022 Episodic Substance-related disorders (14 sources) Tobacco dependence syndrome; Translations: [Nicotine dependence, unspecified, uncomplicated] Onset: 05-18-1905-18-2023 Chronic Unclassified (3 sources) LOW BACK PAIN, UNSPECIFIED; Translations: [LOW BACK PAIN, UNSPECIFIED] Onset: 06-30-19 Unclassified (1 source) Encounter for screening for malignant neoplasm of colon; Translations: [Encounter for screening for malignant neoplasm of colon] Onset: 03-23-20 Urinary tract infections (15 sources) Urinary tract infectious disease; Translations: [Urinary tract infection, site not specified] Onset: 05-21-19 Resolved : 10-21-1911-18-2022 Episodic Past or Other Problems Problem Classification Problem Date Documented Da te Episodic/Chronic Abdominal hernia (10 sources) Hiatal hernia; Translations: [Diaphragmatic hernia without obstruction or gangrene] Onset: 05-18-2023 05-18-2023 Episodic Conditions associated with dizziness or vertigo (20 sources) Benign paroxysmal positional vertigo; Translations: [Benign paroxysmal vertigo, unspecified ear] Onset: 05-18-2023 05-18-2023 Episodic Deficiency and other anemia (10 sources) Anemia; Translations: [Anemia, unspecified] Onset: 05-18-2023 05-18-2023 Episodic Diabetes mellitus without complication (13 sources) Prediabetes; Translations: [Prediabetes] Onset: 07-31-2022 05-18-2023 Episodic E Codes: Cut/pierceb (1 source) Contact with scissors, initial encounter; Translations: [CONTACT WITH SCISSORS INITIAL ENC] Onset: 02-21-2022 Episodic Fracture of lower limb (10 sources) Closed fracture of patella; Translations: [Unspecified fracture of unspecified patella, initial encounter for closed fracture] Onset: 02-04-2018 Resolved: 10-21-2023 03-25-2023 Episodic Gout and other crystal arthropathies (11 sources) Gout, unspecified; Translations: [Gouty arthritis of right foot] Onset: 11-22-2021 Resolved: 08-17-2023 05-18-2023 Chronic Heart valve disorders (10 sources) Heart murmur; Translations: [Cardiac murmur, unspecified] Onset: 05-18-2023 05-18-2023 Episodic Hemorrhoids (10 sources) Hemorrhoids; Translations: [Unspecified hemorrhoids] Onset: 05-18-2023 05-18-2023 Episodic Influenza (6 sources) Influenza; Translations: [Influenza due to unidentified influenza virus with other respiratory manifestations] Onset: 07-14-2023 Resolved: 10-21-2023 10-21-2023 Episodic Malaise and fatigue (12 sources) Asthenia; Translations: [Weakness] Onset: 05-18-2023 Resolved: 05-18-2023 05-31-2018 Episodic Mood disorders (10 sources) Mood disorders; Translations: [DEPRESSION UNSPECIFIED] Onset: 04-29-2022 05-18-2023 Mycoses (12 sources) Candidiasis of skin and nail; Translations: [Candidiasis of skin] Onset: 05-18-2023 Episodic Nonmalignant breast conditions (10 sources) Hematoma of right breast; Translations: [Other specified disorders of breast] Onset: 05-18-2023 Resolved: 05-18-2023 05-18-2023 Episodic Nutritional deficiencies (7 sources) Iron deficiency; Translations: [Vitamin deficiency] Onset: 07-31-2022 07-23-2023 Episodic Open wounds of extremities (4 sources) Laceration without foreign body of left middle finger without damage to nail, initial encounter; Translations: [LAC W/O FB LT MF W/O DMG NAIL INIT] Onset: 02-20-2022 Episodic Open wounds of head; neck; and trunk (11 sources) Open wound of anterior abdominal wall ; Translations: [Unspecified open wound of abdominal wall, unspecified quadrant without penetration into peritoneal cavity, initial encounter] Onset: 05-18-2023 Resolved: 10-21-2023 05-18-2023 Episodic Other aftercare (1 source) Other termite helper (current) drug therapy; Translations: [OTH MATERIAL HANDLING CREW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 THERAPY] Onset: 04-29-2022 Episodic Other and unspecified benign neoplasm (10 sources) Polyp of colon; Translations: [Polyp of [...] Onset: 12-18-2021 Episodic Other connective tissue disease (10 sources) Pain in left foot; Translations: [Pain in left foot] Onset: 03-25-2023 Resolved: 08-17-2023 03-25-2023 Episodic Other connective tissue disease (10 sources) Patellar tendonitis; Translations: [Patellar tendinitis, unspecified knee] Onset: 11-20-2016 03-25-2023 Episodic Other connective tissue disease (10 sources) Radial styloid tenosynovitis; Translations: [Radial styloid tenosynovitis [de Quervain]] Onset: 05-18-2023 05-18-2023 Episodic Other connective tissue disease (10 sources) Fibromyalgia; Translations: [Fibromyalgia] Onset: 05-18-2023 05-18-2023 Episodic Other connective tissue disease (6 sources) Tendinitis of right forearm; Translations: [Other enthesopathies, not elsewhere classified] Onset: 10-11-2023 10-11-2023 Episodic Other connective tissue disease (6 sources) Other symptoms and signs involving the musculoskeletal system; Translations: [Other musculoskeletal symptoms referable to limbs] Onset: 10-11-2023 10-11-2023 Episodic Other gastrointestinal disorders (10 sources) History of bariatric surgical procedure; Translations: [Bariatric surgery status] Onset: 05-18-2023 05-18-2023 Episodic Other gastrointestinal disorders (10 sources) Dysphagia; Translations: [Dysphagia, unspecified] Onset: 05-18-2023 05-18-2023 Episodic Other gastrointestinal disorders (10 sources) Constipation; Translations: [Constipation, unspecified] Onset: 05-18-2023 Resolved: 08-17-2023 05-18-2023 Episodic Other lower respiratory disease (6 sources) Cough; Translations: [Acute cough] Onset: 07-14-2023 Resolved: 10-21-2023 10-21-2023 Episodic Other lower respiratory disease (6 sources) Postviral cough; Translations: [Post-viral cough syndrome] Onset: 07-23-2023 Resolved: 10-21-2023 10-21-2023 Episodic Other nervous system disorders (10 sources) Slurred speech; Translations: [Slurred speech] Onset: [...] Onset: 12-16-2021 Episodic Other non-traumatic joint disorders (20 sources) Pain in right knee; Translations: [Pain in joint, lower leg] Onset: 11-20-2016 03-25-2023 Episodic Other non-traumatic joint disorders (11 sources) Hip pain; Translations: [Pain in left hip] Onset: 05-18-2023 05-18-2023 Episodic Other nutritional; endocrine; and metabolic disorders (10 sources) Excess panniculus of abdomen; Translations: [Localized adiposity] Onset: 03-25-2023 Resolved: 05-18-2023 05-18-2023 Chronic Other screening for suspected conditions (not mental disorders or infectious disease) (12 sources) Patient encounter status; Translations: [Encounter for [...] EDEMA] Onset: 03-19-2022 Episodic Residual codes; unclassified (12 sources) Edema of lower extremity; Translations: [Localized edema] Onset: 05-18-2023 Resolved: 10-05-2023 05-18-2023 Episodic Residual codes; unclassified (6 sources) At risk of polypharmacy; Translations: [Other specified personal risk factors, not elsewhere classified] Onset: 08-26-2023 09-21-2023 Episodic Residual codes; unclassified (6 sources) Bilateral lower limb edema; Translations: [Localized edema] Onset: 10-05-2023 10-05-2023 Episodic Respiratory failure; insufficiency; arrest (adult) (6 sources) Acute respiratory failure; Translations: [Acute respiratory failure, unspecified whether with hypoxia or hypercapnia] Onset: 08-26-2023 09-21-2023 Episodic Screening and history of mental health and substance abuse codes (7 sources) Personal history of nicotine dependence; Translations: [Ex-cigarette smoker] Onset: 07-16-2022 08-19-2023 Episodic Unclassified (1 source) LOW BACK PAIN, UNSPECIFIED; Translations: [LOW BACK PAIN, UNSPECIFIED] Onset: 06-26-2022 Viral infection (10 sources) Herpes zoster; Translations: [Zoster without complications] Onset: 05-18-2023 Resolved: 05-18-2023 05-18-2023 Episodic Results Test Name Value Interpretation Reference Range Facility Urinalysis macro (dipstick) panel (U)on 01-28-2024 Bilirubin, UA Negative Negative - 4(70) +++ mg/dL [facility] Blood, UA Negative Negative - 50 Kranthi/mcL [facility] Clarity, UA Clear [facility] Color, UA Dark Tania [facility] Glucose, UA Negative Negative - 1999(110) ++++ mg/dL [facility] Interpretation and review of laboratory results Abnormal [facility] Ketones, UA Negative Negative - 160(16) ++++ mg/dL [facility] Leukocytes, UA Trace Negative - 500+++ Radha/mcL [facility] Nitrite, UA Negative Negative - Positive [facility] pH, UA 5.5 5 - 9 [facility] Protein, UA Negative Negative - 1999(20) ++++ mg/dL [facility] Spec Grav, UA 1.025 1 - 1.03 [facility] Urobilinogen, UA 0.2 0.2 - 12 mg/dL [facility] MHPT CULT,URINEon 01-23-2024 Interpretation and review of laboratory results [facility] Description .CLEAN C[facility] Culture ESCHERICHIA COLI >100,000 CFU/ML [facility] STREPTOCOCCI, BETA HEMOLYTIC GROUP B 10 to 50,000 CFU/ML [facility] Report Status FINAL 01/23/2024 [facility] MHPT CULT,URINE SUSCEPTIBILITY [facility]PT CULT,URINE Organism ESCHERICHIA COLI [facility] Method CROW [facility]PT CULT,URINE Ampicillin 16 INTERMEDIATE Intermediate [facility]PT CULT,URINE Cefazolin <=4 SUSCEPTIBLE Susceptible [facility] Cefazolin sensitivit y results can be used to predict the effectiveness of oral Susceptible [facility]PT CULT,URINE cephalosporins (eg. Cephalexin) in uncomplicated Urinary Tract Infections due Susceptible [facility]PT CULT,URINE to E. coli, K. pneumoniae, and P. mirabilis Susceptible [facility]PT CULT,URINE Ceftriaxone <=0.25 SUSCEPTIBLE Susceptible [facility] CULT[facility]URINE Negative [facility] Gentamicin <=1 SUSCEPTIBLE Susceptible [facility] Levofloxacin <=0.12 SUSCEPTIBLE Susceptible [facility] Nitrofurantoin <=16 SUSCEPTIBLE Susceptible [facility] Piperacillin/Tazobac ta m <=4 SUSCEPTIBLE Susceptible [facility] Tobramycin <=1 SUSCEPTIBLE Susceptible [facility] Trimethoprim/Sulfa <=20 SUSCEPTIBLE Susceptible [facility] Original Ordering Provider: RICHA DAVENPORT [facility] ALL BASIC METABOLIC PANELon 01-05-2024 Anion gap [Moles/Vol] 11.1 mmol/L [facility] Calcium [Mass/Vol] 9.2 mg/dL 8.5 - 10. 1 mg/dL [facility] Chloride [Moles/Vol] 105 mmol/L 98 - 10 7 mmol/L [facility] CO2 [Moles/Vol] 28.0 mmol/L 21.0 - 32.0 mmol/L [facility] Creatinine [Mass/Vol] 1.08 mg/dL High 0.55 - 1.02 mg/dL [facility] GFR/1.73 sq M.predicted CKD-EPI (S/P/Bld) [Vol rate/Area] >60 60 - PINF [facility] Glucose [Mass/Vol] 92 mg/dL 74 - 106 mg/dL [facility] Interpretation and review of laboratory results Abnormal [facility] Potassium [Moles/Vol] 4.1 mmol/L 3.5 - 5.1 mmol/L [facility] Sodium [Moles/Vol] 140 mmol/L 136 - 145 mmol/L [facility] TBH EGFR-NON AF KITTITIAN 51 Low 60 - PINF [facility] Urea nitrogen [Mass/Vol] 17.0 mg/dL 7.0 - 18.0 mg/dL [facility] Urea nitrogen/Creatinine [Mass ratio] 15.7 mg/mg [facility] Amphetamine Screen Ql (U)Ord ered By: Jace Graham on 03-23-2023 Amphetamines Ql (U) Negative Negative [facility] Barbiturates [Presence] in U rine by Screen methodOrdered By: Jace Graham on 03-23-2023 Barbiturates Screen Ql (U) Negative Negative [facility] Benzodiazepines Screen Ql (U )Ordered By: Jace Graham on 03-23-2023 Benzodiazepines Ql (U) Negative Negative [facility] Benzoylecgonine [Presence] i n Urine by Screen methodOrdered By: Jace Graham on 03-23-2023 Benzoylecgonine Screen Ql (U) Negative Negative [facility] Cannabinoids [Presence] in U rine by Screen methodOrdered By: Jace Graham on 03-23-2023 Cannabinoids Screen Ql (U) Negative Negative [facility] Comment on above: These are unconfirme d results and should not be used for legal purposes. Drug Cut-Off Concentration: AMPH 1000 ng/mL ELKIN 200 ng/mL ATIYA 200 ng/mL COCM 300 ng/mL OP 300 ng/mL PCP 25 ng/mL THC 20 ng/mL Drug Screen,Urineon 03-23-20 Amphetamine Screen,Urine Negative Normal Negative [facility] Comment on above: Performed By: #### U RDS #### [address] Barbiturate Screen,Urine Negative Normal Negative [facility] Comment on above: Performed By: #### U RDS #### [address] Benzodiazepines Screen,Urine Negative Normal Negative [facility] Comment on above: Performed By: #### U RDS #### [address] Cannabinoid Screen,Urine Negative Normal Negative [facility] Comment on above: Result Comment: Thes e are unconfirmed results and should not be used for legal purposes. Drug Cut-Off Concentration: AMPH 1000 ng/mL ELKIN 200 ng/mL ATIYA 200 ng/mL COCM 300 ng/mL OP 300 ng/mL PCP 25 ng/mL THC 20 ng/mL PERFORMED BY: [place] [address] PATHOLOGIST HEALTH AND SAFETY ADVISOR AN CURRY M.D. Performed By: #### U RDS #### [address] Cocaine Screen,Urine Negative Normal Negative [facility] Comment on above: Performed By: #### U RDS #### [address] Opiate Screen,Urine Negative Normal Negative [facility] Comment on above: Performed By: #### U RDS #### [address] Phencyclidine Screen,Urine Negative Normal Negative [facility] Comment on above: Performed By: #### U RDS #### [address] Opiates [Presence] in Urine by Screen methodOrdered By: Jace Graham on 03-23-2023 Opiates Screen Ql (U) Negative Negative [facility] Phencyclidine Screen Ql (U)O rdered By: Jace Graham on 03-23-2023 Phencyclidine Ql (U) Negative Negative [facility] Cholesterol [Mass/volume] in Serum or PlasmaOrdered By: Eduardo Monk on 11-18-2022 Cholesterol [Mass/Vol] 159 mg/dL 140-200 [facility] Comment on above: Chol less than 200 m g/dl low riskChol 201-239 mg/dl borderline riskChol 240 mg/dl and greater high risk Cholesterol in LDL Calc [Mas s/Vol]Ordered By: Eduardo Monk on 11-18-2022 Cholesterol in LDL [Mass/Vol] 84 mg/dL 0-100 [facility] Comment on above: LDL ATP III CLASSIFI CATIONLDL less than 100 mg/dL OptimalLDL 100-129 mg/dL Near or above optimalLDL 130-159 mg/dL Borderline highLDL 160-189 mg/dL HighLDL greater than 189 mg/dL Very high Cholesterol in VLDL Calc [Ma ss/Vol]Ordered By: Eduardo Monk on 11-18-2022 Cholesterol in VLDL [Mass/Vol] 28 mg/dL [facility] Serum or plasma high density lipoprotein (HDL) cholesterol measurementOrdered By: Eduardo Monk on 11-18-2022 Cholesterol in HDL [Mass/Vol] 46 mg/dL 23-92 [facility] Comment on above: HDL CHOL ATP-III CLA SSIFICATION Cardiovascular RiskHDL > or equal to 60 mg/dL LOWHDL < 40 mg/dL HIGH Serum or plasma total choles terol/high density lipoprotein (HDL) cholesterol mass ratOrdered By: Eduardo Monk on 11-18-2022 Cholesterol.total/Chol esterol in HDL [Mass ratio] 3.5 {ratio} <5.0 [facility] Thyrotropin [Units/volume] i n Serum or PlasmaOrdered By: Eduardo Monk on 11-18-2022 TSH Qn 2.13 m[IU]/L 0.45-5.33 [facility] Triglyceride [Mass/volume] i n Serum or PlasmaOrdered By: Eduardo Monk on 11-18-2022 Triglyceride [Mass/Vol] 144 mg/dL 0-149 [facility] Comment on above: TRIG ATP III CLASSIF ICATIONTRIG less than 150 mg/dL NormalTRIG 150-199 mg/dL Borderline highTRIG 200-500 mg/dL High TRIG greater than 500 mg/dL Very highStandard traceable to the Center for Disease Conrtrol and Prevention (CDC) test method. Vitamin D+Metabolites [Mass/ volume] in Serum or PlasmaOrdered By: Eduardo Monk on 11-18-2022 Vitamin D+Metabolites [Mass/Vol] 50.4 ng/mL 30-100 [facility] Comment on above: VITAMIN D STATUS 25( OH)VITAMIN D RANGE (ng/mL) Deficient <20 Insufficient 20 to <30Sufficient 30 to 100Reference: Bin MF,Lakshmi CABRERA, Cristian SMART, et al. Evaluation,treatment, and prevention of vitamin D deficiency; an Endocrine Society clinical practice guideline. JCEM. 2010; 96(7):1911-30. CBC AUTO DIFFon 07-25-2022 BASO # 0.1 103/ul Normal 0.0-0.1 [facility] Comment on above: Performed By: #### A 1C #### [facility] [address] [address] [address] Bebeto Alvarado Basophils/100 WBC (Bld) 0.6 % Normal 0.2-2.0 [facility] Comment on above: Performed By: #### A 1C #### [facility] [address] [address] [address] Bebeto Alvarado EO # 0.2 103/ul Normal 0.0-0.7 [facility] Comment on above: Performed By: #### A 1C #### [facility] [address] [address] [address] Bebeto Alvarado Eosinophils/100 WBC (Bld) 2.3 % Normal 0.9-7.0 [facility] Comment on above: Performed By: #### A 1C #### [facility] [address] [address] [address] Bebeto Alvarado Erythrocyte distribution width (RBC) [Ratio] 13.8 % Normal 11.0-15.0 [facility] Comment on above: Performed By: #### A 1C #### [facility] [address] [address] [address] Bebeto Alvarado Hematocrit (Bld) [Volume fraction] 41.2 % Normal 36.0-48.0 [facility] Comment on above: Performed By: #### A 1C #### [facility] [address] [place] [address] Dr. Bebeto Alvarado Hemoglobin (Bld) [Mass/Vol] 13.2 g/dL Normal 12.0-16.0 [facility] Comment on above: Performed By: #### A 1C #### [facility] [address] [place] [address] Dr. Bebeto Alvarado IG # 0.03 10e3/ul Normal 0.00-0.03 [facility] Comment on above: Performed By: #### A 1C #### [facility] [address] [place] [address] Dr. Bebeto Alvarado IG % 0.4 % Normal 0.0-0.5 [facility] Comment on above: Performed By: #### A 1C #### [facility] [address] [place] [address] Dr. Bebeto Alvarado LYMPH # 2.1 103/ul Normal 1.2-3.8 [facility] Comment on above: Performed By: #### A 1C #### [facility] [address] [place] [address] Dr. Bebeto Alvarado Lymphocytes/100 WBC (Bld) 25.9 % Normal 20.5-60.0 [facility] Comment on above: Performed By: #### A 1C #### [facility] [address] [place] [address] Dr. Bebeto Alvarado MANUAL DIFF REQ NO Normal [facility] Comment on above: Performed By: #### A 1C #### [facility] [address] [place] [address] Dr. Bebeto Alvarado MCH (RBC) [Entitic mass] 28.0 pg Normal 26.7-34.0 [facility] Comment on above: Performed By: #### A 1C #### [facility] [address] [place] [address] Dr. Bebeto Alvarado MCHC (RBC) [Mass/Vol] 32.0 g/dL Normal 29.9-35.2 [facility] Comment on above: Performed By: #### A 1C #### [facility] [address] [address] [address] Bebeto Alvarado MCV (RBC) [Entitic vol] 87.5 fL Normal 81.0-99.0 [facility] Comment on above: Performed By: #### A 1C #### [facility] [address] [address] [address] Bebeto Alvarado MONO # 0.5 103/ul Normal 0.3-0.8 [facility] Comment on above: Performed By: #### A 1C #### [facility] [address] [address] [address] Bebeto Alvarado Monocytes/100 WBC (Bld) 6.6 % Normal 1.7-12.0 [facility] Comment on above: Performed By: #### A 1C #### [facility] [address] [place] [address] Dr. Bebeto Alvarado NEUT # 5.1 103/ul Normal 1.4-6.5 [facility] Comment on above: Performed By: #### A 1C #### [facility] [address] [place] [address] Dr. Bebeto Alvarado Neutrophils/100 WBC (Bld) 64.2 % Normal 43.0-75.0 [facility] Comment on above: Performed By: #### A 1C #### [facility] [address] [place] [address] Dr. Bebeto Alvarado Platelet mean volume (Bld) [Entitic vol] 11.2 fL Normal 9.5-13.5 [facility] Comment on above: Performed By: #### A 1C #### [facility] [address] [place] [address] Dr. Bebeto Alvarado PLT 252 103/ul Normal 150-450 [facility] Comment on above: Performed By: #### A 1C #### [facility] [address] [place] [address] Dr. Bebeto Alvarado RBC 4.71 106/ul Normal 4.20-5.40 [facility] Comment on above: Performed By: #### A 1C #### [facility] [address] [place] [address] Dr. Bebeto Alvarado WBC 8.0 103/ul Normal 4.0-11.0 [facility] Comment on above: Performed By: #### A 1C #### [facility] [address] [address] [address] Bebeto Alvarado GLYCOHEMOGLOBIN A1Con 2022 ADA RECOMMENDATION SEE BELOW Normal [facility] Comment on above: Result Comment: ADA RECOMMENDED LIMIT 4.0 - 6.0 ADA THERAPEUTIC TARGET < 7.0 ACTION SUGGESTED > 7.0 Performed By: #### A 1C #### [facility] [address] [address] [address] Bebeto Alvarado Glucose [Mass/Vol] 114 mg/dL Normal [facility] Comment on above: Performed By: #### A 1C #### [facility] [address] [place] [address] Dr. Bebeto Alvarado HbA1c (Bld) [Mass fraction] 5.6 % Normal 4.5-6.2 [facility] Comment on above: Performed By: #### A 1C #### [facility] [address] [place] [address] Dr. Bebeto Alvarado IRONon 07-25-2022 Iron [Mass/Vol] 60.0 ug/dL Normal 50.0-170.0 [facility] Comment on above: Performed By: #### V ITB12, IRON #### [facility] [address] [place] [address] Dr. Bebeto Alvarado LIPID PROFILEon 07-25-2022 CHOL-HDL RATIO NORM SEE BELOW Normal [facility] Comment on above: Result Comment: 3.3 - 4.4 LOW RISK 4.4 - 7.1 AVERAGE RISK 7.1 - 11.0 MODERATE RISK >11.0 HIGH RISK Performed By: #### C MP, LIPID #### [facility] [address] [place] [address] Dr. Bebeto Alvarado Cholesterol [Mass/Vol] 144 mg/dL Normal <=200 [facility] Comment on above: Performed By: #### C MP, LIPID #### [facility] [address] [place] [address] Dr. Bebeto Alvarado Cholesterol in HDL [Mass/Vol] 39 mg/dL Critically low 40-60 [facility] Comment on above: Performed By: #### C MP, LIPID #### [facility] [address] [address] [address] Bebeto Alvarado Cholesterol in LDL [Mass/Vol] 74.6 mg/dL Normal [facility] Comment on above: Performed By: #### C MP, LIPID #### [facility] [address] [address] [address] Bebeto Alvarado Cholesterol.total/Chol esterol in HDL [Mass ratio] 3.7 {ratio} Normal [facility] Comment on above: Performed By: #### C MP, LIPID #### [facility] [address] [address] [address] Bebeto Alvarado HDL NORMAL > or = 60 mg/dl - LO W CARDIOVASCULAR RISK <40 mg/dl - HIGH CARDIOVASCULAR RISK Normal [facility] Comment on above: Performed By: #### C MP, LIPID #### [facility] [address] [place] [address] Dr. Bebeto Alvarado LDL CALC NORMAL SEE BELOW Normal [facility] Comment on above: Result Comment: <100 mg/dl OPTIMAL 100 - 129 mg/dl NEAR OR ABOVE OPTIMAL 130 - 159 mg/dl BORDERLINE HIGH 160 - 189 mg/dl HIGH >190 mg/dl VERY HIGH Performed By: #### C MP, LIPID #### [facility] [address] [address] [address] Bebeto Alvarado Triglyceride [Mass/Vol] 152 mg/dL Critically high <=150 [facility] Comment on above: Performed By: #### C MP, LIPID #### [facility] [address] [place] [address] Dr. Bebeto Alvarado VLDL CALC 30.4 mg/dL Normal [facility] Comment on above: Performed By: #### C MP, LIPID #### [facility] [address] [address] [address] Bebeto Alvarado PROF 14(COMP METB)on 023 Albumin [Mass/Vol] 3.7 g/dL Normal 3.4-5.0 [facility] Comment on above: Performed By: #### C MP, LIPID #### [facility] [address] [address] [address] Bebeto Alvarado Albumin/Globulin [Mass ratio] 0.9 {ratio} Normal [facility] Comment on above: Performed By: #### C MP, LIPID #### [facility] [address] [address] [address] Bebeto Alvarado ALP [Catalytic activity/Vol] 90 U/L Normal 46-116 [facility] Comment on above: Performed By: #### C MP, LIPID #### [facility] [address] [address] [address] Bebeto Alvarado ALT [Catalytic activity/Vol] 38 U/L Normal 14-59 [facility] Comment on above: Performed By: #### C MP, LIPID #### [facility] [address] [address] [address] Bebeto Alvarado Anion gap [Moles/Vol] 12.1 mmol/L Normal [facility] Comment on above: Performed By: #### C MP, LIPID #### [facility] [address] [address] [address] Bebeto Alvarado AST [Catalytic activity/Vol] 26 U/L Normal 15-37 [facility] Comment on above: Performed By: #### C MP, LIPID #### [facility] [address] [address] [address] Bebeto Alvarado Bilirubin [Mass/Vol] 0.3 mg/dL Normal 0.2-1.0 [facility] Comment on above: Performed By: #### C MP, LIPID #### [facility] [address] [address] [address] Bebeto Alvarado Calcium [Mass/Vol] 9.3 mg/dL Normal 8.5-10.1 [facility] Comment on above: Performed By: #### C MP, LIPID #### [facility] [address] [address] [address] Bebeto Alvarado Chloride [Moles/Vol] 107 mmol/L Normal 98-107 [facility] Comment on above: Performed By: #### C MP, LIPID #### [facility] [address] [address] [address] Bebeto Alvarado CO2 [Moles/Vol] 27.9 mmol/L Normal 21.0-32.0 [facility] Comment on above: Performed By: #### C MP, LIPID #### [facility] [address] [address] [address] Bebeto Alvarado Creatinine [Mass/Vol] 0.95 mg/dL Normal 0.55-1.02 [facility] Comment on above: Performed By: #### C MP, LIPID #### [facility] [address] [address] [address] Bebeto Alvarado EGFR-AF KITT[place]IAN >60 Normal >=60 [facility] Comment on above: Performed By: #### C MP, LIPID #### [facility] [address] [address] [address] Bebeto Alvarado EGFR-NON AF [place]IAN 60 mL/min/1.73m2 Normal >=60 [facility] Comment on above: Performed By: #### C MP, LIPID #### [facility] [address] [address] [address] Bebeto Alvarado Globulin (S) [Mass/Vol] 3.9 g/dL Normal [facility] Comment on above: Performed By: #### C MP, LIPID #### [facility] [address] [address] [address] Bebeto Alvarado Glucose [Mass/Vol] 108 mg/dL Critically high 74-106 [facility] Comment on above: Performed By: #### C MP, LIPID #### [facility] [address] [address] [address] Bebeto Alvarado Potassium [Moles/Vol] 4.0 mmol/L Normal 3.5-5.1 [facility] Comment on above: Performed By: #### C MP, LIPID #### [facility] [address] [address] [address] Bebeto Alvarado Protein [Mass/Vol] 7.6 g/dL Normal 6.4-8.2 [facility] Comment on above: Performed By: #### C MP, LIPID #### [facility] [address] [address] [address] Bebeto Alvarado Sodium [Moles/Vol] 143 mmol/L Normal 136-145 [facility] Comment on above: Performed By: #### C MP, LIPID #### [facility] [address] [place] [address] Dr. Bebeto Alvarado Urea nitrogen [Mass/Vol] 15.0 mg/dL Normal 7.0-18.0 [facility] Comment on above: Performed By: #### C MP, LIPID #### [facility] [address] [place] [address] Dr. Bebeto Alvarado Urea nitrogen/Creatinine [Mass ratio] 15.8 mg/mg Normal [facility] Comment on above: Performed By: #### C MP, LIPID #### [facility] [address] [place] [address] Dr. Bebeto Alvarado UA RANDOM W/MICROSCOPICon BACTERIA NONE SEEN Normal NONE SEEN [facility] Comment on above: Performed By: #### A 1C #### [facility] [address] [place] [address] Dr. Bebeto Alvarado Bilirubin Ql (U) Negative Normal NEGATIVE [facility] Comment on above: Performed By: #### A 1C #### [facility] [address] [place] [address] Dr. Bebeto Alvarado CAST NONE SEEN Normal NONE SEEN [facility] Comment on above: Performed By: #### A 1C #### [facility] [address] [place] [address] Dr. Bebeto Alvarado Clarity (U) CLEAR Normal CLEAR [facility] Comment on above: Performed By: #### A 1C #### [facility] [address] [place] [address] Dr. Bebeto Alvarado Color (U) YELLOW Normal YELLOW [facility] Comment on above: Performed By: #### A 1C #### [facility] [address] [place] [address] Dr. Bebeto Alvarado Crystals LM Nom (Urine sed) NONE SEEN Normal NONE SEEN [facility] Comment on above: Performed By: #### A 1C #### [facility] [address] [address] [address] Bebeto Alvarado Epithelial cells LM Ql (Urine sed) NONE SEEN Normal NONE SEEN /RARE [facility] Comment on above: Performed By: #### A 1C #### [facility] [address] [place] [address] Dr. Bebeto Alvarado Glucose Ql (U) Negative Normal NEGATIVE The [facility] Comment on above: Performed By: #### A 1C #### [facility] [address] [place] [address] Dr. Bebeto Alvarado Hemoglobin Ql (U) Negative Normal NEGATIVE [facility] Comment on above: Performed By: #### A 1C #### [facility] [address] [place] [address] Dr. Bebeto Alvarado Ketones Ql (U) Negative Normal NEGATIVE The [facility] Comment on above: Performed By: #### A 1C #### [facility] [address] [place] [address] Dr. Bebeto Alvarado LEUKOCYTES Negative Normal NEGATIVE [facility] Comment on above: Performed By: #### A 1C #### [facility] [address] [place] [address] Dr. Bebeto Alvarado MUCOUS NONE SEEN Normal NONE SEEN [facility] Comment on above: Performed By: #### A 1C #### [facility] [address] [place] [address] Dr. Bebeto Alvarado Nitrite Ql (U) Negative Normal NEGATIVE The [facility] Comment on above: Performed By: #### A 1C #### [facility] [address] [place] [address] Dr. Bebeto Alvarado pH (U) 5.5 [pH] Normal 5-9 [facility] Comment on above: Performed By: #### A 1C #### [facility] [address] [place] [address] Dr. Bebeto Alvarado RBC NONE SEEN Abnormal 0-2 [facility] Comment on above: Performed By: #### A 1C #### [facility] [address] [place] [address] Dr. Bebeto Alvarado SPEC GRAVITY 1.030 Abnormal 1.005-<=1.02 5 [facility] Comment on above: Performed By: #### A 1C #### [facility] [address] [place] [address] Dr. Bebeto Alvarado UA PROTEIN Negative Normal NEGATIVE/ TRACE [facility] Comment on above: Performed By: #### A 1C #### [facility] [address] [place] [address] Dr. Bebeto Alvarado Urobilinogen Qn (U) 0.2 {Katerin'U}/dL Normal 0.2 - 1. 0 [facility] Comment on above: Performed By: #### A 1C #### [facility] [address] [place] [address] Dr. Bebeto Alvarado WBC NONE SEEN Normal NONE SEEN [facility] Comment on above: Performed By: #### A 1C #### [facility] [address] [place] [address] Dr. Bebeto Alvarado VITAMIN B12on 07-25-2022 Cobalamin (Vitamin B12) [Mass/Vol] 1684.0 pg/mL Critically high 193.0-986.0 [facility] Comment on above: Performed By: #### V ITB12, IRON #### [facility] [address] [place] [address] Dr. Bebeto Alvarado PROF CHEM 8 (BAS METB)on Anion gap [Moles/Vol] 12.2 mmol/L Normal [facility] Comment on above: Performed By: #### B MP #### [facility] [address] [place] [address] Dr. Bebeto Alvarado Calcium [Mass/Vol] 8.9 mg/dL Normal 8.5-10.1 [facility] Comment on above: Performed By: #### B MP #### [facility] [address] [place] [address] Dr. Bebeto Alvarado Chloride [Moles/Vol] 105 mmol/L Normal 98-107 [facility] Comment on above: Performed By: #### B MP #### [facility] [address] [address] [address] Bebeto Alvarado CO2 [Moles/Vol] 29.6 mmol/L Normal 21.0-32.0 [facility] Comment on above: Performed By: #### B MP #### [facility] [address] [address] [address] Bebeto Alvarado Creatinine [Mass/Vol] 0.95 mg/dL Normal 0.55-1.02 [facility] Comment on above: Performed By: #### B MP #### [facility] [address] [address] [address] Bebeto Alvarado EGFR-AF [place] >60 Normal >=60 [facility] Comment on above: Performed By: #### B MP #### [facility] [address] [address] [address] Bebeto Alvarado EGFR-NON AF [place] 60 mL/min/1.73m2 Normal >=60 [facility] Comment on above: Performed By: #### B MP #### [facility] [address] [address] [address] Bebeto Alvarado Glucose [Mass/Vol] 101 mg/dL Normal 74-106 [facility] Comment on above: Performed By: #### B MP #### [facility] [address] [address] [address] Bebeto Alvarado Potassium [Moles/Vol] 3.8 mmol/L Normal 3.5-5.1 [facility] Comment on above: Performed By: #### B MP #### [facility] [address] [address] [address] Bebeto Alvarado Sodium [Moles/Vol] 143 mmol/L Normal 136-145 [facility] Comment on above: Performed By: #### B MP #### [facility] [address] [address] [address] Bebeto Alvarado Urea nitrogen [Mass/Vol] 16.0 mg/dL Normal 7.0-18.0 [facility] Comment on above: Performed By: #### B MP #### [facility] [address] [place] [address] Dr. Bebeto Alvarado Urea nitrogen/Creatinine [Mass ratio] 16.8 mg/mg Normal [facility] Comment on above: Performed By: #### B MP #### [facility] [address] [place] [address] Dr. Bebeto Alvarado CBC AUTO DIFFon 11-21-2021 BASO # 0.1 103/ul Normal 0.0-0.1 [facility] Comment on above: Performed By: #### A 1C #### [facility] [address] [place] [address] Dr. Bebeto Alvarado Basophils/100 WBC (Bld) 1.0 % Normal 0.2-2.0 [facility] Comment on above: Performed By: #### A 1C #### [facility] [address] [place] [address] Dr. Bebeto Alvarado EO # 0.2 103/ul Normal 0.0-0.7 [facility] Comment on above: Performed By: #### A 1C #### [facility] [address] [place] [address] Dr. Bebeto Alvarado Eosinophils/100 WBC (Bld) 3.3 % Normal 0.9-7.0 [facility] Comment on above: Performed By: #### A 1C #### [facility] [address] [place] [address] Dr. Bebeto Alvarado Erythrocyte distribution width (RBC) [Ratio] 13.8 % Normal 11.0-15.0 [facility] Comment on above: Performed By: #### A 1C #### [facility] [address] [place] [address] Dr. Bebeto Alvarado Hematocrit (Bld) [Volume fraction] 38.8 % Normal 36.0-48.0 [facility] Comment on above: Performed By: #### A 1C #### [facility] [address] [place] [address] Dr. Bebeto Alvarado Hemoglobin (Bld) [Mass/Vol] 12.5 g/dL Normal 12.0-16.0 [facility] Comment on above: Performed By: #### A 1C #### [facility] [address] [place] [address] Dr. Bebeto Alvarado IG # 0.02 10e3/ul Normal 0.00-0.03 [facility] Comment on above: Performed By: #### A 1C #### [facility] [address] [place] [address] Dr. Bebeto Alvarado IG % 0.3 % Normal 0.0-0.5 [facility] Comment on above: Performed By: #### A 1C #### [facility] [address] [place] [address] Dr. Bebeto Alvarado LYMPH # 1.9 103/ul Normal 1.2-3.8 [facility] Comment on above: Performed By: #### A 1C #### [facility] [address] [place] [address] Dr. Bebeto Alvarado Lymphocytes/100 WBC (Bld) 29.6 % Normal 20.5-60.0 [facility] Comment on above: Performed By: #### A 1C #### [facility] [address] [place] [address] Dr. Bebeto Alvarado MANUAL DIFF REQ NO Normal [facility] Comment on above: Performed By: #### A 1C #### [facility] [address] [place] [address] Dr. Bebeto Alvarado MCH (RBC) [Entitic mass] 28.0 pg Normal 26.7-34.0 [facility] Comment on above: Performed By: #### A 1C #### [facility] [address] [place] [address] Dr. Bebeto Alvarado MCHC (RBC) [Mass/Vol] 32.2 g/dL Normal 29.9-35.2 [facility] Comment on above: Performed By: #### A 1C #### [facility] [address] [place] [address] Dr. Bebeto Alvarado MCV (RBC) [Entitic vol] 86.8 fL Normal 81.0-99.0 [facility] Comment on above: Performed By: #### A 1C #### [facility] [address] [place] [address] Dr. Bebeto Alvarado MONO # 0.4 103/ul Normal 0.3-0.8 [facility] Comment on above: Performed By: #### A 1C #### [facility] [address] [place] [address] Dr. Bebeto Alvarado Monocytes/100 WBC (Bld) 5.7 % Normal 1.7-12.0 [facility] Comment on above: Performed By: #### A 1C #### [facility] [address] [place] [address] Dr. Bebeto Alvarado NEUT # 3.8 103/ul Normal 1.4-6.5 [facility] Comment on above: Performed By: #### A 1C #### [facility] [address] [place] [address] Dr. Bebeto Alvarado Neutrophils/100 WBC (Bld) 60.1 % Normal 43.0-75.0 [facility] Comment on above: Performed By: #### A 1C #### [facility] [address] [place] [address] Dr. Bebeto Alvarado Platelet mean volume (Bld) [Entitic vol] 11.0 fL Normal 9.5-13.5 [facility] Comment on above: Performed By: #### A 1C #### [facility] [address] [place] [address] Dr. Bebeto Alvarado PLT 264 103/ul Normal 150-450 [facility] Comment on above: Performed By: #### A 1C #### [facility] [address] [place] [address] Dr. Bebeto Alvarado RBC 4.47 106/ul Normal 4.20-5.40 [facility] Comment on above: Performed By: #### A 1C #### [facility] [address] [place] [address] Dr. Bebeto Alvarado WBC 6.3 103/ul Normal 4.0-11.0 [facility] Comment on above: Performed By: #### A 1C #### [facility] [address] [place] [address] Dr. Bebeto Alvarado GLYCOHEMOGLOBIN A1Con 2021 ADA RECOMMENDATION SEE BELOW Normal [facility] Comment on above: Result Comment: ADA RECOMMENDED LIMIT 4.0 - 6.0 ADA THERAPEUTIC TARGET < 7.0 ACTION SUGGESTED > 7.0 Performed By: #### A 1C #### [facility] [address] [place] [address] Dr. Bebeto Alvarado Glucose [Mass/Vol] 105 mg/dL Normal [facility] Comment on above: Performed By: #### A 1C #### [facility] [address] [place] [address] Dr. Bebeto Alvarado HbA1c (Bld) [Mass fraction] 5.3 % Normal 4.5-6.2 [facility] Comment on above: Performed By: #### A 1C #### [facility] [address] [place] [address] Dr. Bebeto Alvarado IRONon 11-21-2021 Iron [Mass/Vol] 59.0 ug/dL Normal 50.0-170.0 [facility] Comment on above: Performed By: #### A 1C #### [facility] [address] [place] [address] Dr. Bebeto Alvarado LIPID PROFILEon 11-21-2021 CHOL-HDL RATIO NORM SEE BELOW Normal [facility] Comment on above: Result Comment: 3.3 - 4.4 LOW RISK 4.4 - 7.1 AVERAGE RISK 7.1 - 11.0 MODERATE RISK >11.0 HIGH RISK Performed By: #### C MP, LIPID #### [facility] [address] [place] [address] Dr. Bebeto Alvarado Cholesterol [Mass/Vol] 139 mg/dL Normal <=200 [facility] Comment on above: Performed By: #### C MP, LIPID #### [facility] [address] [place] [address] Dr. Bebeto Alvarado Cholesterol in HDL [Mass/Vol] 35 mg/dL Critically low 40-60 [facility] Comment on above: Performed By: #### C MP, LIPID #### [facility] [address] [place] [address] Dr. Bebeto Alvarado Cholesterol in LDL [Mass/Vol] 69.6 mg/dL Normal [facility] Comment on above: Performed By: #### C MP, LIPID #### [facility] [address] [address] [address] Bebeto Alvarado Cholesterol.total/Chol esterol in HDL [Mass ratio] 4.0 {ratio} Normal [facility] Comment on above: Performed By: #### C MP, LIPID #### [facility] [address] [address] [address] Bebeto Alvarado HDL NORMAL > or = 60 mg/dl - LO W CARDIOVASCULAR RISK <40 mg/dl - HIGH CARDIOVASCULAR RISK Normal [facility] Comment on above: Performed By: #### C MP, LIPID #### [facility] [address] [address] [address] Bebeto Alvarado LDL CALC NORMAL SEE BELOW Normal [facility] Comment on above: Result Comment: <100 mg/dl OPTIMAL 100 - 129 mg/dl NEAR OR ABOVE OPTIMAL 130 - 159 mg/dl BORDERLINE HIGH 160 - 189 mg/dl HIGH >190 mg/dl VERY HIGH Performed By: #### C MP, LIPID #### [facility] [address] [address] [address] Bebeto Alvarado Triglyceride [Mass/Vol] 172 mg/dL Critically high <=150 [facility] Comment on above: Performed By: #### C MP, LIPID #### [facility] [address] [address] [address] Bebeto Alvarado VLDL CALC 34.4 mg/dL Normal [facility] Comment on above: Performed By: #### C MP, LIPID #### [facility] [address] [address] [address] Bebeto Alvarado PROF 14(COMP METB)on 022 Albumin [Mass/Vol] 3.8 g/dL Normal 3.4-5.0 [facility] Comment on above: Performed By: #### C MP, LIPID #### [facility] [address] [address] [address] Bebeto Alvarado Albumin/Globulin [Mass ratio] 1.1 {ratio} Normal [facility] Comment on above: Performed By: #### C MP, LIPID #### [facility] [address] [address] [address] Bebeto Alvarado ALP [Catalytic activity/Vol] 96 U/L Normal 46-116 [facility] Comment on above: Performed By: #### C MP, LIPID #### [facility] [address] [address] [address] Bebeto Alvarado ALT [Catalytic activity/Vol] 25 U/L Normal 14-59 [facility] Comment on above: Performed By: #### C MP, LIPID #### [facility] [address] [address] [address] Bebeto Alvarado Anion gap [Moles/Vol] 11.8 mmol/L Normal [facility] Comment on above: Performed By: #### C MP, LIPID #### [facility] [address] [address] [address] Bebeto Alvarado AST [Catalytic activity/Vol] 20 U/L Normal 15-37 [facility] Comment on above: Performed By: #### C MP, LIPID #### [facility] [address] [address] [address] Bebeto Alvarado Bilirubin [Mass/Vol] 0.4 mg/dL Normal 0.2-1.0 [facility] Comment on above: Performed By: #### C MP, LIPID #### [facility] [address] [address] [address] Bebeto Alvarado Calcium [Mass/Vol] 8.8 mg/dL Normal 8.5-10.1 [facility] Comment on above: Performed By: #### C MP, LIPID #### [facility] [address] [address] [address] Bebeto Alvarado Chloride [Moles/Vol] 106 mmol/L Normal 98-107 [facility] Comment on above: Performed By: #### C MP, LIPID #### [facility] [address] [address] [address] Bebeto Alvarado CO2 [Moles/Vol] 27.0 mmol/L Normal 21.0-32.0 [facility] Comment on above: Performed By: #### C MP, LIPID #### [facility] [address] [address] [address] Bebeto Alvarado Creatinine [Mass/Vol] 0.97 mg/dL Normal 0.55-1.02 [facility] Comment on above: Performed By: #### C MP, LIPID #### [facility] [address] [address] [address] Bebeto Alvarado EGFR-AF [place] >60 Normal >=60 [facility] Comment on above: Performed By: #### C MP, LIPID #### [facility] [address] [address] [address] Bebeto Alvarado EGFR-NON AF [place] 59 mL/min/1.73m2 Critically low >=60 [facility] Comment on above: Performed By: #### C MP, LIPID #### [facility] [address] [address] [address] Bebeto Alvarado Globulin (S) [Mass/Vol] 3.4 g/dL Normal [facility] Comment on above: Performed By: #### C MP, LIPID #### [facility] [address] [address] [address] Bebeto Alvarado Glucose [Mass/Vol] 103 mg/dL Normal 74-106 [facility] Comment on above: Performed By: #### C MP, LIPID #### [facility] [address] [address] [address] Bebeto Alvarado Potassium [Moles/Vol] 3.8 mmol/L Normal 3.5-5.1 [facility] Comment on above: Performed By: #### C MP, LIPID #### [facility] [address] [address] [address] Bebeto Alvarado Protein [Mass/Vol] 7.2 g/dL Normal 6.4-8.2 [facility] Comment on above: Performed By: #### C MP, LIPID #### [facility] [address] [address] [address] Bebeto Alvarado Sodium [Moles/Vol] 141 mmol/L Normal 136-145 [facility] Comment on above: Performed By: #### C MP, LIPID #### [facility] [address] [address] [address] Bebeto Alvarado Urea nitrogen [Mass/Vol] 11.0 mg/dL Normal 7.0-18.0 [facility] Comment on above: Performed By: #### C MP, LIPID #### [facility] [address] [place] [address] Dr. Bebeto Alvarado Urea nitrogen/Creatinine [Mass ratio] 11.3 mg/mg Normal [facility] Comment on above: Performed By: #### C MP, LIPID #### [facility] [address] [address] [address] Bebeto Alvarado URIC ACID SERUMon 11-21-2021 Urate [Mass/Vol] 7.3 mg/dL Critically high 2.6-6.0 [facility] Comment on above: Performed By: #### A 1C #### [facility] [address] [place] [address] Dr. Bebeto Alvarado VITAMIN B12on 11-21-2021 Cobalamin (Vitamin B12) [Mass/Vol] 2123.0 pg/mL Critically high 193.0-986.0 [facility] Comment on above: Performed By: #### A 1C #### [facility] [address] [place] [address] Dr. Bebeto Alvarado Physician Referralon 022 Physician Referral [phone] [id number] Normal [facility] KNEE RIGHT 1 OR 2 [facility] KNEE RIGHT 1 OR 2 VWS [facility] Department of Radiology [address] [place] [id number] ======== Patient Name: MICHELLE BE : [...] Electronically signed by:Debra Del Cid. Transcribed by: [email or web address], User Resident: Electronically Signed by: DEBRA DEL CID @ 02/08/2019 11:16 AM Normal [facility] Comment on above: Order Comment: , Mabel ws (X-RAY, KNEE): Radiologic Protocol , Weight Bearing?: N , With or Without Brace/Cast/Collar: With , Views (X-RAY, KNEE): Radiologic Protocol , Weight Bearing?: N , With or Without Brace/Cast/Collar: With , , , Ordering Provider - AHSAN BINGHAM PA-C , KNEE RIGHT 1 OR 2 VWSon KNEE RIGHT 1 OR 2 VWS [facility] Department of Radiology [address] [place] [address] ======== Patient Name: MICHELLE BE : 1960 Sex: F Age: Race: White Pt. Location: Patient Status: Ordered Date: 12/07/2018 10:20:00 AM Completed Date: 12/07/2018 10:20 AM Requesting Provider: AHSAN BINGHAM Attending Provider: Report Copy To: Signs & Symptoms: S82.001A Unsp fracture of right patella, init for clos fx I10 History: [place] Comments: , , , Ordering Provider - [...] complications. Electronically signed by:Tomasz Stoll. Transcribed by: [email or web address], User Resident: Electronically Signed by: TOMASZ STOLL @ 12/07/2018 11:14 AM Normal [facility] Comment on above: Order Comment: , Rossie ws (X-RAY, KNEE): Radiologic Protocol , Weight Bearing?: N , With or Without Brace/Cast/Collar: With , Views (X-RAY, KNEE): Radiologic Protocol , Weight Bearing?: N , With or Without Brace/Cast/Collar: With , , , Ordering Provider - AHSAN BINGHAM PA-C , KNEE RIGHT 1 OR 2 [facility] KNEE RIGHT 1 OR 2 [facility] Department of Radiology [address] [place] [phone] ======== Patient Name: MICHELLE BE : 1960 Sex: F Age: Race: White Pt. 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 Transcribed by: [email or web address], User Resident: Electronically Signed by: ANUP ELLISON @ 10/06/2018 02:48 PM Normal [facility] Comment on above: Order Comment: , Rossie ws (X-RAY, KNEE): Radiologic Protocol , Weight Bearing?: N , With or Without Brace/Cast/Collar: With , Views (X-RAY, KNEE): Radiologic Protocol , Weight Bearing?: N , With or Without Brace/Cast/Collar: With , , , Ordering Provider - AHSAN BINGHAM PA-C , KNEE RIGHT 1 OR 2 [facility] 08-05 KNEE RIGHT 1 OR 2 [facility] Department of Radiology [address] [place] [id number] ======== Patient Name: MICHELLE BE : [...] , Exam: KNEE RIGHT 1 OR 2 [facility] ======== KNEE RIGHT 1 OR 2 [facility] 08/26/2018 2:54 PM EDT SIGNS AND [...] effusion Electronically signed by:Anup Ellison. Transcribed by: [email or web address], User Resident: Electronically Signed by: ANUP ELLISON @ 08/26/2018 04:56 PM Normal [facility] Comment on above: Order Comment: , Vie ws (X-RAY, KNEE): Radiologic Protocol , Weight Bearing?: N , With or Without Brace/Cast/Collar: With , Views (X-RAY, KNEE): Radiologic Protocol , Weight Bearing?: N , With or Without Brace/Cast/Collar: With , , , Ordering Provider - AHSAN BINGHAM PA-C , KNEE RIGHT 1 OR 2 [facility] 07-06 KNEE RIGHT 1 OR 2 [facility] Department of Radiology [address] [place] [phone] ======== Patient Name: MICHELLE BE : 1960 Sex: F Age: Race: White Pt. Location: Patient Status: Ordered Date: 07/29/2018 2:10:00 PM Completed Date: 07/29/2018 02:12 PM Requesting Provider: AHSAN BINGHAM Attending Provider: Report Copy To: Signs & Symptoms: S82.001A Unsp fracture of right patella, init for clos fx I10 History: [place] Comments: , , , Ordering Provider - AHSAN BINGHAM PA-C , Exam: KNEE RIGHT 1 OR 2 [facility] ======== KNEE RIGHT 1 OR 2 [facility] 07/29/2018 2:12 PM EDT SIGNS AND [...] compartment Electronically signed by:Anup Ellison. Transcribed by: [email or web address], User Resident: Electronically Signed by: ANUP ELLISON @ 07/29/2018 03:41 PM Normal [facility] Comment on above: Order Comment: , Mabel ws (X-RAY, KNEE): Radiologic Protocol , Weight Bearing?: N , With or Without Brace/Cast/Collar: With , Views (X-RAY, KNEE): Radiologic Protocol , Weight Bearing?: N , With or Without Brace/Cast/Collar: With , , , Ordering Provider - AHSAN BINGHAM PA-C , KNEE RIGHT 3 [facility] 9 KNEE RIGHT 3 [facility] Department of Radiology [address] [place] [phone] ======== Patient Name: MICHELLE BE : [...] BINGHAM PA-C , Exam: KNEE RIGHT 3 S ======== KNEE RIGHT 3 S 07/15/2018 8:47 [...] knee Electronically signed by:Anup Ellison. Transcribed by: [email or web address], User Resident: Electronically Signed by: ANUP ELLISON @ 07/15/2018 03:31 PM Normal [facility] Comment on above: Order Comment: , Mabel ws (X-RAY, KNEE): Radiologic Protocol , Weight Bearing?: N , With or Without Brace/Cast/Collar: With , Views (X-RAY, KNEE): Radiologic Protocol , Weight Bearing?: N , With or Without Brace/Cast/Collar: With , , , Ordering Provider - AHSAN BINGHAM PA-C , Operative Reporton 9 Operative Report MR#: [id number] [facility] Pt. Name: Michelle Be Room #: [...] Duarte MD Date Trans: 07/03/2018 04:28 A/terry [id number] [place] [facility] *ANAEROBIC CULTUREon 07-02- 019 *ANAEROBIC CULTURE Clinical Report: (D) Specimen/Source: SWAB/RT KNEE Collected: 07/02/2018 13:53 Status: Final Last Updated: 07/07/2018 08:02 CULT RES (Final) No Anaerobes Isolated 5 Days Normal [facility] Comment on above: Performed By: #### 3 0312 #### [address] *WOUND CULTUREon 07-02-2018 *WOUND CULTURE Clinical Report: (D) Specimen/Source: WOUND/INTRAOP SPEC Collected: 07/02/2018 13:53 Status: Final Last Updated: 07/07/2018 10:13 (1) #1 RT KNEE GRAM (Final) Rare Polys No Bacteria Seen CULT RES (Final) No Growth Day 5 Normal [facility] Comment on above: Order Comment: #1 RT KNEE Performed By: #### 3 0343 #### [address] KNEE RIGHT 1 OR 2 [facility] 06-05 KNEE RIGHT 1 OR 2 S [facility] Department of Radiology [address] [place] [phone] ======== Patient Name: MICHELLE BE : [...] PATELLA Exam: KNEE RIGHT 1 OR 2 [facility] ======== KNEE RIGHT 1 OR [...] Electronically signed by:Debra Del Cid. Transcribed by: [email or web address], User Resident: Electronically Signed by: DEBRA DEL CID @ 07/02/2018 02:03 PM Normal [facility] Comment on above: Order Comment: ORIF VS PERCUTANEOUS FIXATION RIGHT PATELLA POC GLUCOSE LABon 07-02-2018 Glucose [Mass/Vol] 108 mg/dL High 70-100 [facility] Comment on above: Performed By: #### 8 5499 #### [facility] [address] [place] [address], [facility] APTTon 06-30-2018 aPTT Coag (Bld) [Time] 30.6 s Normal 25.0-35.0 Th e [facility] Comment on above: Result Comment: ALL [...] THIS PURPOSE. Performed By: #### 5 6101, 12757 #### [facility] [address] [place] [address], [facility] BASIC METABOLIC PANELon 06-05 Calcium [Mass/Vol] 9.7 mg/dL Normal 8.6-10.3 [facility] Comment on above: Performed By: #### 0 0071 #### [facility] [address] [place] [address], [place] Chloride [Moles/Vol] 102 mmol/L Normal 98-107 [facility] Comment on above: Performed By: #### 0 0071 #### [facility] [address] [place] [address], [place] CO2 [Moles/Vol] 28 mmol/L Normal 21-31 [facility] Comment on above: Performed By: #### 0 0071 #### [facility] [address] [place] [address], [place] Creatinine [Mass/Vol] 1.20 mg/dL Normal 0.60-1.20 [facility] Comment on above: Performed By: #### 0 0071 #### [facility] [address] [place] [address], [place] GFR/1.73 sq M predicted among blacks MDRD (S/P/Bld) [Vol rate/Area] 56 ml/min/1.73sq m Abnormal >60 [facility] Comment on above: Performed By: #### 0 0071 #### [facility] [address] [place] [address], [place] GFR/1.73 sq M predicted among non-blacks MDRD (S/P/Bld) [Vol rate/Area] 47 ml/min/1.73sq m Abnormal >60 [facility] Comment on above: Performed By: #### 0 0071 #### [facility] [address] [place] [address], [place] Glucose [Mass/Vol] 97 mg/dL Normal 70-100 [facility] Comment on above: Performed By: #### 0 0071 #### [facility] [address] [place] [address], [place] Potassium [Moles/Vol] 4.1 mmol/L Normal 3.5-5.1 [facility] Comment on above: Performed By: #### 0 0071 #### [facility] [address] Sodium [Moles/Vol] 137 mmol/L Normal 136-145 [facility] Comment on above: Performed By: #### 0 1 #### [facility] [address] Urea nitrogen [Mass/Vol] 19 mg/dL Normal 7-25 [facility] Comment on above: Performed By: #### 0 1 #### [facility] [address] CBC W/DIFFon 06-30-2018 ABS BASOPHILS 0.1 10*3/uL Normal 0.0-0.2 [facility] Comment on above: Performed By: #### 5 102 #### [facility] [address] ABS IMM GRANS 0.0 10*3/uL Normal 0.0-0.2 [facility] Comment on above: Performed By: #### 5 102 #### [facility] [address] ABS NEUTROPHILS 6.4 10*3/uL Normal 1.6-7.6 [facility] Comment on above: Performed By: #### 5 102 #### [facility] [address] Basophils/100 WBC (Bld) 0.7 % Normal 0.0-1.0 [facility] Comment on above: Performed By: #### 5 102 #### [facility] [address] Eosinophils (Bld) [#/Vol] 0.2 10*3/uL Normal 0.0-0.5 [facility] Comment on above: Performed By: #### 5 102 #### [facility] [address] [place] [address], [facility] Eosinophils/100 WBC (Bld) 1.5 % Normal 0.0-6.0 [facility] Comment on above: Performed By: #### 5 0103 #### [facility] [address] [place] [address], [facility] Erythrocyte distribution width (RBC) [Ratio] 14.4 % Normal 11.5-15.0 [facility] Comment on above: Performed By: #### 5 0103 #### [facility] [address] [facility] [place] [address], [facility] Hematocrit (Bld) [Volume fraction] 40.6 % Normal 36.0-45.0 [facility] Comment on above: Performed By: #### 5 0103 #### [facility] [address] [facility] [place] [address], [facility] Hemoglobin (Bld) [Mass/Vol] 13.3 g/dL Normal 12.0-15.0 [facility] Comment on above: Performed By: #### 5 0103 #### [facility] [address] [facility] [place] [address], [facility] IMMATURE GRANS 0.4 % Normal 0.0-1.0 [facility] Comment on above: Performed By: #### 5 0103 #### [facility] [address] [place] [address], [facility] Lymphocytes (Bld) [#/Vol] 2.6 10*3/uL Normal 1.2-4.0 [facility] Comment on above: Performed By: #### 5 0103 #### [facility] [address] [place] [place] [address], [facility] Lymphocytes/100 WBC (Bld) 26.5 % Normal 20.0-45.0 [facility] Comment on above: Performed By: #### 5 0103 #### [facility] [address] MCH (RBC) [Entitic mass] 27.4 pg Normal 27.0-33.0 [facility] Comment on above: Performed By: #### 5 0103 #### [facility] [address] MCHC (RBC) [Mass/Vol] 32.8 g/dL Normal 32.0-35.0 [facility] Comment on above: Performed By: #### 5 0103 #### [facility] [address] MCV (RBC) [Entitic vol] 83.5 fL Normal 82.0-98.0 [facility] Comment on above: Performed By: #### 5 0103 #### [facility] [address] Monocytes (Bld) [#/Vol] 0.5 10*3/uL Normal 0.1-1.0 [facility] Comment on above: Performed By: #### 5 0103 #### [facility] [address] MONOS 5.0 % Normal 5.0-12.0 [facility] Comment on above: Performed By: #### 5 0103 #### [facility] [address] Neutrophils/100 WBC (Bld) 65.9 % Normal 40.0-72.0 [facility] Comment on above: Performed By: #### 5 0103 #### [facility] [address] Nucleated RBC/100 WBC (Bld) [Ratio] 0 % Normal 0-0 [facility] Comment on above: Performed By: #### 5 0103 #### [facility] [address] [place] [address], [facility] PLAT CNT 290 10*3/uL Normal 150-400 [facility] Comment on above: Performed By: #### 5 0103 #### [place] [address], [facility] RBC (Bld) [#/Vol] 4.86 10*6/uL Normal 3.80-5.00 [facility] Comment on above: Performed By: #### 5 0103 #### [place] [address], [facility] WBC (Bld) [#/Vol] 9.68 10*3/uL Normal 4.00-10.60 [facility] Comment on above: Performed By: #### 5 0103 #### [address] KNEE RIGHT 1 OR 2 VWSon 06-05 KNEE RIGHT 1 OR 2 VWS [facility] Department of Radiology [address] [place] [id number] ======== Patient Name: MICHELLE BE : [...] Electronically signed by:Debra Del Cid. Transcribed by: [email or web address], User Resident: Electronically Signed by: DEBRA DEL CID @ 06/30/2018 11:52 AM Normal [facility] Comment on above: Order Comment: , Mabel ws (X-RAY, KNEE): Radiologic Protocol , Weight Bearing?: N , With or Without Brace/Cast/Collar: With , Views (X-RAY, KNEE): Radiologic Protocol , Weight Bearing?: N , With or Without Brace/Cast/Collar: With , , , Ordering Provider - AHSAN BINGHAM PA-C , PROTHROMBIN TIMEon 03-27-201 9 INR Coag (PPP) [Relative time] 0.98 {INR} Normal 0.91-1.16 [facility] Comment on above: Result Comment: ACCC [...] CHEST 1995;108:231S-246S. Performed By: #### 5 6101, [address] #### [address] PT Coag (PPP) [Time] 13.0 s Normal 12.3-14.8 [facility] Comment on above: Result Comment: ALL RESULTS MUST BE INTERPRETED WITH RESPECT TO BLOOD DRAWING ARTIFACT OR DILUTION ERROR OF ANTICOAGULANT AT THE TIME OF SAMPLING. Performed By: #### 5 6101, [id number] #### [address] KNEE RIGHT 3 VWSon 9 KNEE RIGHT 3 VWS [facility] Department of Radiology [address] [place] [phone] ======== Patient Name: MICHELLE BE : 1960 Sex: F Age: Race: White Pt. Location: 84 Patient Status: O Ordered Date: 06/15/2018 1:35:00 PM Completed Date: 06/15/2018 01:34 PM Requesting Provider: AMPARO ZHANG Attending Provider: AMPARO ZHANG Report Copy To: ADELAIDA CARRION Signs & Symptoms: M17.11 Unilateral primary osteoarthritis, right knee I10 History: [place] Comments: , Weight Bearing?: Y , Weight Bearing?: Y , , , Ordering Provider - AMPARO ZHANG PA-C , Exam: KNEE RIGHT 3 [facility] ======== KNEE RIGHT 3 S 06/15/2018 [...] effusion Electronically signed by:Anup Ellison. Transcribed by: [email or web address], User Resident: Electronically Signed by: ANUP ELLISON @ 06/15/2018 03:50 PM Normal [facility] Comment on above: Order Comment: , Isaiah ght Bearing?: Y , Weight Bearing?: Y , , , Ordering Provider - AMPARO ZHANG PA-C , Vital Signs Date Time Vital Sign Value Performing Clinician Facility 01-28-2024 13:46-0400 Body height 162.6 cm Adelaida Kelsiez [employer] APPRENTICE Work Phone: [facility] 01-28-2024 13:46-0400 Body mass index (BMI) [Ratio] 48.99 kg/m2 Adelaida Aichholz [employer] MAKER APPRENTICE Work Phone: [facility] 01-28-2024 13:46-0400 Body temperature 98.71 [degF] Adelaida Aichholz [employer] MAKER APPRENTICE Work Phone: [facility] 01-28-2024 13:46-0400 Body weight 129.46 kg Adelaida Aichholz [employer] MAKER APPRENTICE Work Phone: [facility] 01-28-2024 13:46-0400 Diastolic blood pressure 78 mm[Hg] Adelaida Aichholz [employer] MAKER APPRENTICE Work Phone: [facility] 01-28-2024 13:46-0400 Heart rate 81 /min Adelaida Aichholz [employer] MAKER APPRENTICE Work Phone: [facility] 01-28-2024 13:46-0400 Respiratory rate 18 /min Adelaida Aichholz [employer]KER APPRENTICE Work Phone: [facility] 01-28-2024 13:46-0400 SaO2% (BldA) [Mass fraction] 99 % Adelaida Aichholz [employer] MAKER APPRENTICE Work Phone: [facility] 01-28-2024 13:46-0400 Systolic blood pressure 110 mm[Hg] Adelaida Aichholz [employer] MAKER APPRENTICE Work Phone: [facility] 05-18-2023 16:30-0500 Body height 162.6 cm Adelaida Aichholz [employer] MAKER APPRENTICE Work Phone: [facility] 05-18-2023 16:30-0500 Body mass index (BMI) [Ratio] 47.89 kg/m2 Adelaida Aichholz [employer] APPRENTICE Work Phone: [facility] 05-18-2023 16:30-0500 Body temperature 97.3 [degF] Adelaida Aichholz [employer] MAKER APPRENTICE Work Phone: [facility] 05-18-2023 16:30-0500 Body weight 126.55 kg Adelaida Aichholz [employer] MAKER APPRENTICE Work Phone: [facility] 05-18-2023 16:30-0500 Diastolic blood pressure 80 mm[Hg] Adelaida Aichholz [employer] MAKER APPRENTICE Work Phone: [facility] 05-18-2023 16:30-0500 Heart rate 76 /min Adelaida Aichholz [employer] MAKER APPRENTICE Work Phone: [facility] 05-18-2023 16:30-0500 Respiratory rate 19 /min Adelaida Aichholz [employer] MAKER APPRENTICE Work Phone: [facility] 05-18-2023 16:30-0500 SaO2% (BldA) [Mass fraction] 97 % Adelaida Aichholz [employer] MAKER APPRENTICE Work Phone: [facility] 05-18-2023 16:30-0500 Systolic blood pressure 134 mm[Hg] Adelaida Aichholz [employer] MAKER APPRENTICE Work Phone: [facility] 03-23-2023 12:10-0500 Diastolic blood pressure 98 mm[Hg] Adelaida Aichholz Work Phone: [facility] 03-23-2023 12:10-0500 Heart rate 76 /min Adelaida Aichholz Work Phone: [facility] 03-23-2023 12:10-0500 Respiratory rate 18 /min Adelaida Aichholz Work Phone: [facility] 03-23-2023 12:10-0500 SaO2% (BldA) [Mass fraction] 99 % Adelaida Carrion Work Phone: [facility] 03-23-2023 12:10-0500 Systolic blood pressure 162 mm[Hg] Adelaida Carrion Work Phone: [facility] 03-23-2023 10:53-0500 Body height 162.56 cm Adelaida Carrion Work Phone: [facility] 03-23-2023 10:53-0500 Body weight 125.64 kg Adelaida Carrion Work Phone: [facility] 12-19-2022 14:55-0400 Body height 162.56 cm Rosemary Marita Other [facility] Other 12-19-2022 14:55-0400 Body mass index (BMI) [Ratio] 47.85 kg/m2 Rosemary Marita Other [facility] Other 12-19-2022 14:55-0400 Body temperature 97.8 [degF] Rosemary Marita Other [facility] Other 12-19-2022 14:55-0400 Body weight 126.46 kg Rosemary Marita Other [facility] Other 12-19-2022 14:55-0400 Respiratory rate 20 /min Rosemary Marita Other [facility] Other 12-19-2022 14:55-0400 SaO2% (BldA) [Mass fraction] 95 % Rosemary Marita Other [facility] Other 11-20-2022 13:12-0400 Body temperature 97.7 [degF] Adelaida Merryholz Work Phone: [facility] 11-20-2022 13:12-0400 SaO2% (BldA) [Mass fraction] 96 % Adelaida Aichholz Work Phone: [facility] 11-20-2022 07:44-0400 Diastolic blood pressure 90 mm[Hg] Adelaida Aichholz Work Phone: [facility] 11-20-2022 07:44-0400 Heart rate 103 /min Adelaida Aichholz Work Phone: [facility] 11-20-2022 07:44-0400 Systolic blood pressure 152 mm[Hg] Adelaida Aichholz Work Phone: [facility] 11-19-2022 20:00-0400 Respiratory rate 18 /min Adelaida Aichholz Work Phone: [facility] 11-18-2022 15:18-0400 Body height 162.56 cm Adelaida Yinghholz Work Phone: [facility] 11-17-2022 09:00-0400 Body weight 122.92 kg Adelaida Yinghholz Work Phone: [facility] Encounters Encounter Date Encounter Type Care Provider Facility Start: 02-04-2024 End: 02-04-2024 Refill Sonam Brown [employer] APPRENTICE Work Phone: [facility] Comment on above: Restless leg Start: 01-28-2024 End: 01-28-2024 Bamboo flowsheet Adelaida Carrion [employer] MAKER APPRENTICE Work Phone: [facility] Start: 01-28-2024 End: 01-28-2024 Bamboo flowsheet Adelaida Carrion P[employer] MAKER APPRENTICE Work Phone: [facility] Start: 01-28-2024 End: 01-28-2024 Office outpatient visit 15 minutes Adelaida Carrion [employer] MAKER APPRENTICE Work Phone: [facility] Comment on above: Acute cystitis witho ut hematuria (Primary Dx); Tobacco dependence; Needs flu shot; Morbid obesity ([facility]/H[facility]) Start: 01-28-2024 End: 01-28-2024 ambulatory ADELAIDA AICHHOLZ Not Available Start: 01-25-2024 End: 01-25-2024 ambulatory Syeda Mancuso MD Facility:[facility] Start: 01-21-2024 End: 01-25-2024 Clinisync Result Encounter Generic External Data Provider [facility] External Department Unsolicited Start: 01-21-2024 End: 01-25-2024 Clinisync Result Encounter Generic External Data Provider [facility] External Department Unsolicited Start: 01-06-2024 ambulatory Adelaida Carrion Facilit y:[facility] Start: 01-05-2024 End: 01-05-2024 Clinisync Result Encounter Adleaida Carrion PLASTIC DIE MAKER APPRENTICE Work Phone: [facility] External Department Unsolicited Start: 01-05-2024 End: 01-05-2024 Clinisync Result Encounter Adelaida Sheyla PLASTIC DIE MAKER APPRENTICE Work Phone: [facility] External Department Unsolicited Start: 01-04-2024 End: 01-04-2024 ambulatory ADELAIDA AICHHOLZ Not Available Start: 12-09-2023 End: 12-09-2023 ambulatory JUANY MIKEMOR Not Available Start: 12-08-2023 End: 12-08-2023 [...] ADELAIDA AICHHOLZ Not Available Start: 06-29-2023 End: 06-29-2023 ambulatory Syeda Mancuso MD Facility:[facility] Start: 05-22-2023 End: 05-22-2023 ambulatory ASHLEIGH HINES Not Available Start: 05-21-2023 Refill Adelaida Carrion PLASTIC DIE MAKER APPRENTICE Work Phone: [facility] Comment on above: Acute cystitis with hematuria (Primary Dx) Start: 05-18-2023 End: 05-18-2023 Office outpatient visit 25 minutes Adelaida Carrion PLASTIC DIE MAKER APPRENTICE Work Phone: [facility] Comment on above: Encounter [...] initial encounter Start: 05-18-2023 End: 05-18-2023 ambulatory AEDLAIDA MERRYHOLZ Not Available Start: 05-18-2023 Bamboo flowsheet Adelaida Carrion PLASTIC DIE MAKER APPRENTICE Work Phone: [facility] Start: 05-18-2023 Bamboo flowsheet Adelaida Carrion PLASTIC DIE MAKER APPRENTICE Work Phone: [facility] Start: 05-18-2023 End: 05-18-2023 Patient encounter procedure Adelaida Carrion PLASTIC DIE MAKER APPRENTICE Work Phone: [facility] Start: 03-25-2023 End: 03-25-2023 ambulatory ADELAIDA MERRYHOLZ Not Available Start: 03-23-2023 End: 03-23-2023 Admission to same day surgery center Adelaida Carrion Work Phone: [facility] Work Phone: Start: 03-23-2023 End: 03-23-2023 ambulatory Adelaida Mcnair Yingmarqueskushlily Work Phone: [facility] Work Phone: Start: 03-11-2023 End: 03-11-2023 ambulatory KALLI INTERIANO Not Available Start: 02-20-2023 End: 02-20-2023 ambulatory ASHLEIGH HINES Not Available Start: 02-12-2023 End: 02-12-2023 ambulatory Jace Graham Other [employer] Other Start: 02-12-2023 Telephone encounter Jace Haney [employer]oggle [employer] Operator Start: 12-19-2022 End: 12-19-2022 ambulatory Rosemary Kirkland Other [employer] Other Start: 12-19-2022 Office outpatient ne w 10 minutes Rosemary Kirkland [facility] [place] Start: 11-17-2022 End: 11-20-2022 Evaluation and management of inpatient Adelaida Merrykushlily Work Phone: [facility] Work Phone: Start: 09-04-2022 ambulatory ARIAN JOHNSON . Facili ty:H1 Start: 08-26-2022 ambulatory NARENDRANATH LAKSHMIPATHY . Facility:[facility]1 Start: 08-08-2022 End: 08-09-2022 ambulatory TRIAL MANAGER ADELAIDA AICMarquesHOLZ Facility:H1 Start: 07-25-2022 End: 07-26-2022 ambulatory TRIAL MANAGER ADELAIDA AICMarquesHOLZ Facility:H1 Start: 07-15-2022 End: 07-15-2022 ambulatory NARENDRANATH LAKSHMIPATHY . Facility:[facility]1 Start: 07-11-2022 ambulatory NARENDRANATH LAKSHMIPATHY . Facility:[facility]1 Start: 06-26-2022 End: 06-27-[address] FINA ZIMMER . Facility:[facility]1 Start: 06-11-2022 ambulatory TRIAL MANAGER ADELAIDA AICMarquesHOLZ Facil ity:H1 Start: 05-21-2022 End: 06-11-2022 ambulatory LIVIER CARRION Facility:[facility]1 Start: 05-08-2022 End: 05-09-2022 ambulatory LIVIER CARRION Facility:[facility]1 Start: 04-28-2022 End: 04-28-2022 ambulatory LIVIER CARRION Facility:[facility]1 Start: 04-03-2022 End: 04-04-[address] FINA ZIMMER . Facility:[facility]1 Start: 03-19-2022 End: 03-20-2022 ambulatory LIVIER CARRION Facility:[facility]1 Start: 02-20-2022 End: 02-20-2022 ambulatory GILMER PURA Facility:H1 Start: 01-10-2022 End: 02-12-2022 ambulatory BRIDGETTE Ca [facility] Facility:[facility]1 Start: 01-02-2022 End: 01-03-[address] FINA ZIMMER . Facility:[facility]1 Start: 01-01-2022 End: 01-02-2022 ambulatory BRIDGETTE Ca [facility] Facility:H1 Start: 12-16-2021 End: 12-16-2021 ambulatory [...] 07-03-2018 Patient encounter procedure SUKI ESCALANTE Facility:[facility] Procedures Date Procedure Procedure Detail Performing Clinician Start: 01-28-2024 Urnls dip stick/tabl et rgnt non-auto w/o micrscp Adelaida Carrion PLASTIC DIE MAKER APPRENTICE Work Phone: Start: 01-21-2024 MHPT CULT,URINE Generic External Data Provider Start: 01-05-2024 ALL BASIC METABOLIC PANEL Adelaida Carrion PLASTIC DIE MAKER APPRENTICE Work Phone: Start: 09-18-2023 Mammography Adelaida Carpenter rachel PLASTIC DIE MAKER APPRENTICE Work Phone: Start: 03-23-2023 Screening colonoscopy L oneal Sheyla Work Phone: Start: 03-23-2023 Colonoscopy Adelaida Carpenter rachel PLASTIC DIE MAKER APPRENTICE Work Phone: Start: 09-15-2022 Mammography Adelaida perezlily PLASTIC DIE MAKER APPRENTICE Work Phone: Start: 08-28-2022 Microscopic observat ion [Identifier] in Cervix by Cyto stain Adelaidamyrna Carrion PLASTIC DIE MAKER APPRENTICE Work Phone: Start: 07-02-2018 ANESTH KNEE AREA SURGERY CHAPARRITA Lucio HENDRICKS Start: 07-02-2018 REMOVAL OF SUPPORT IMPLANT SUKI EBSANDRA Start: 07-02-2018 TREAT KNEECAP FRACTURE SUKI EBRAHEIM Plan of Treatment Date Care Activity Detail Author Start: 03-23-2033 Screening for malignant neoplasm of colon [facility] Start: 08-28-2025 Screening for malignant neoplasm of cervix [facility] Start: 09-17-2024 Screening for malignant neoplasm of breast Mammogram [facility] Start: 05-18-2024 Medicare Annual Wellness (AWV) Medicare Annual Wellness (AWV) [facility] Start: 04-04-2024 End: 04-04-2024 Patient encounter procedure 04/04/2024 1:20 PM EST Office Visit [facility] [address] [place] [address] Adelaida Carrion NP [address] [place] [address] [facility] Start: 03-01-2024 End: 03-01-2024 Patient encounter procedure 03/01/2024 12:00 PM EST Office Visit [facility] [place] [address] [place] [phone] Juany Leggett PA [address] [place] [address] [address] Start: 02-29-2024 End: 02-29-2024 Patient encounter procedure 02/29/2024 2:40 PM EST [facility] [address] [place] [address] Sonam Brown, PLASTIC DIE MAKER APPRENTICE [address] [place] [address] [facility] Start: 02-16-2024 End: 02-16-2024 Patient encounter procedure 02/16/2024 11:30 AM EST Procedure Visit [facility] [address] [place] [phone] Adelaida Carrion, PLASTIC DIE MAKER APPRENTICE [address] [place] [phone] [facility] Start: 02-04-2024 Influenza vaccination Influenza Vacc ine (#1) [facility] Comment on above: Postponed from 12/05 (Patient Does Not Have Time) Start: 01-28-2024 End: 01-27-2025 URINARY TRACT INFECTION (HTRX) URINARY TRACT INFECTION (HTRX) Lab Routine Acute cystitis without hematuria Expected: 01/28/2024 (Approximate), Expires: 01/27/2025 [facility] Work Phone: Comment on above: Expected: 01/28/2024 (Approximate), Expires: 01/27/2025 Start: 01-28-2024 End: 01-28-2024 [facility] Comment on above: Tobacco dependence ( Primary Dx) Start: 09-16-2023 Screening for malignant neoplasm of breast Mammogram [facility] Start: 08-17-2023 End: 08-17-2023 Patient encounter procedure 08/17/2023 9:20 AM EDT Office Visit [facility] [address] [place] [phone] Adelaida Carrion, PLASTIC DIE MAKER APPRENTICE [address] [place] [phone] [facility] Start: 05-22-2023 End: 05-22-2023 Patient encounter procedure 05/22/2023 8:45 AM EST Office Visit [facility] [address] [facility] [address] [place] [address] Ashleigh Hines PA [address] [facility] [address] [place] [address] [facility] Start: 05-18-2023 End: 05-18-2023 Patient encounter procedure 05/18/2023 4:30 PM EST Office Visit [facility] [address] [place] [phone] Adelaida Carrion NP [address] [place] [phone] Arrived [facility] Comment on above: Arrived Start: 05-18-2023 End: 05-18-2024 XR Hip - left 3 Views XR hip left 2 or 3 views Imaging Routine Left hip pain Expected: 05/18/2023 (Approximate), Expires: 05/18/2024 [facility] Work Phone: Comment on above: Expected: 05/18/2023 (Approximate), Expires: 05/18/2024 Start: 03-23-2023 [facility] Start: 11-20-2022 [facility] Start: 11-18-2022 Referral to clinical manager project management [facility] Start: 11-17-2022 Hospital admission [facility] Start: 11-17-2022 [facility] Start: 12-06-1991 Screening for malignant neoplasm of cervix HPV/Cotest [facility] Start: 1960 Medicare Annual Wellness (AWV) Medicare Annual Wellness (AWV) [facility] Start: 1960 Screening for malignant neoplasm of colon [facility] Patient Education [facility] Work Phone: Patient referral [facility] Work Phone: [facility] Immunizations Immunization Date Immunization Notes Care Provider Parker stevens 01-28-2024 Influenza, injectabl e, Madin Nevaeh Canine Kidney, preservative free, quadrivalent Adelaida Aichholz PLASTIC DIE MAKER APPRENTICE Work Phone: [facility] 08-17-2023 zoster vaccine recombinant Adelaida Aichholz PLASTIC DIE MAKER APPRENTICE Work Phone: [facility] 02-13-2023 influenza, injectabl e, quadrivalent, preservative free Adelaida Aichholz PLASTIC DIE MAKER APPRENTICE Work Phone: [facility] 02-13-2023 SARS-COV-2 (COVID-19 ) vaccine, mRNA, spike protein, LNP, PF, 50 mcg/0.5 mL Adelaida Aichholz PLASTIC DIE MAKER APPRENTICE Work Phone: [facility] 02-13-2023 influenza virus vaccine, unspecified formulation Adelaida Aichholz PLASTIC DIE MAKER APPRENTICE Work Phone: [facility] 02-19-2022 diphtheria, tetanus toxoids and pertussis vaccine Adelaida Aichholz PLASTIC DIE MAKER APPRENTICE Work Phone: [facility] 03-02-2021 Moderna SARS-CoV-2 Vaccination Adelaida Aichholz PLASTIC DIE MAKER APPRENTICE Work Phone: [facility] 08-24-2020 Moderna SARS-CoV-2 Vaccination Adelaida Aichholz PLASTIC DIE MAKER APPRENTICE Work Phone: [facility] 07-27-2020 Moderna SARS-CoV-2 Vaccination Adelaida Aichholz PLASTIC DIE MAKER APPRENTICE Work Phone: [facility] 05-28-2018 influenza, injectabl e, quadrivalent, preservative free Adelaida Aichholz Work Phone: [facility] 2017 pneumococcal conjuga te vaccine, 13 valent Adelaida Aichholz PLASTIC DIE MAKER APPRENTICE Work Phone: [facility] Payers Date Payer Category Payer Private Health Insurance [id number] 2022 Self-pay [id number] 2022 Medicare [id number] 2022 Medicare (Managed Care) [facility] [id number] 2008 Unknown [id number] 1961 Unknown [id number] 2.16.840.1.854203.3.579.2 .647 1961 Unknown [id number] 2.16.840.1.714482.3.579.2 .593 1961 Unknown [id number] 2.16.840.1.157807.3.579.2 .593 1961 Unknown [id number] 2.16.840.1.912046.3.579.2 .593 1961 Unknown [id number] 2.16.840.1.984090.3.579.2 .593 1961 Unknown [id number] 2.16.840.1.130393.3.579.2 .593 1961 Unknown [id number] 2.16.840.1.670124.3.579.2 .593 1961 Unknown [id number] 2.16.840.1.336596.3.579.2 .593 1961 Unknown [id number] 2.16.840.1.110151.3.579.2 .593 1961 Unknown [id number] 2.16.840.1.653010.3.579.2 .593 1961 Unknown [id number] 2.16.840.1.946295.3.579.2 .593 1961 Unknown [id number] 2.16.840.1.038654.3.579.2 .593 1961 Unknown [id number] 2.16.840.1.362141.3.579.2 .593 1961 Unknown [id number] 2.16.840.1.089895.3.579.2 .593 1961 Unknown [id number] 2.16.840.1.612042.3.579.2 .593 1961 Unknown [id number] 2.16.840.1.705842.3.579.2 .593 1961 Unknown [id number] 2.16.840.1.065007.3.579.2 .593 1961 Unknown [id number] 2.16.840.1.993859.3.579.2 .593 1961 Unknown [id number] 2.16.840.1.519524.3.579.2 .593 1961 Unknown [id number] 2.16.840.1.636059.3.579.2 .593 1961 Unknown [id number] 2.16.840.1.211182.3.579.2 .593 1961 Unknown [id number] 2.16.840.1.861399.3.579.2 .593 1961 Unknown [id number] 2.16.840.1.216123.3.579.2 .593 1961 Unknown [id number] 2.16.840.1.803633.3.579.2 .593 1961 Unknown [id number] 2.16.840.1.007331.3.579.2 .593 1961 Unknown [id number] 2.16.840.1.085197.3.579.2 .125 1961 Unknown [id number] 2.16.840.1.461225.3.579.2 .1258 1961 Unknown [id number] 2.16.840.1.012107.3.579.2 .1258 1961 Unknown [id number] 2.16.840.1.295348.3.579.2 .1258 1961 Unknown [id number] 2.16.840.1.998860.3.579.2 .1258 1961 Unknown [id number] 2.16.840.1.604543.3.579.2 .1258 1961 Unknown [id number] 2.16.840.1.549264.3.579.2 .1258 1961 Unknown [id number] 2.16.840.1.891495.3.579.2 .1258 1961 Unknown [id number] 2.16.840.1.245720.3.579.2 .1258 1961 Unknown [id number] 2.16.840.1.706374.3.579.2 .1258 1961 Unknown [id number] 2.16.840.1.717057.3.579.2 .1258 1961 Unknown [id number] 2.16.840.1.454898.3.579.2 .1258 1961 Unknown [id number] 2.16.840.1.495652.3.579.2 .1259 1961 Unknown [id number] 2.16.840.1.415657.3.579.2 .1259 1961 Unknown [id number] 2.16.840.1.542196.3.579.2 .1259 1961 Unknown [id number] 2.16.840.1.182786.3.579.2 .1259 1961 Unknown [id number] 2.16.840.1.066248.3.579.2 .196 1961 Unknown [id number] 2.16.840.1.136384.3.579.2 .196 1959 Medicare [id number] 1959 Unknown [id number] Medicare Medicare [id number] Unknown [id number] 2.16.840.1.899968.3.579.2 .531 Unknown [id number] 2.16.840.1.794617.3.579.2 .531 Social History Date Type Detail Facility Start: 11-18-2022 End: 10-14-2023 Tobacco smoking status NEIS Ex-smoker (finding) [facility] Start: 1960 Sex Assigned At Female [facility] Start: 03-25-2023 End: 08-16-2023 Sex Assigned At [facility] Start: 04-06-1976 End: 04-06-2016 History of tobacco use Current smoker [facility] Start: 04-06-1976 End: 04-06-2016 History of tobacco use Cigarette Smoker [facility] Start: 02-09-2023 End: 08-16-2023 Cigarettes smoked current (pack per day) - Reported 1 [facility] Start: 02-09-2023 End: 10-14-2023 Tobacco use and exposure Smokeless tobacco non-user [facility] Start: 05-18-2023 End: 01-28-2024 Alcohol intake Lifetime non-drinker (finding) [facility] Start: 11-13-2022 Alcohol Comment caffeine intake: 1-2 cups per day. [facility] Start: 10-01-2022 Gender identity Identifies as [...] Facility 11-20-2022 Functional status Patient at Baseline [facility] Work Phone: Mental Status Date Assessment Result Facility 11-20-2022 Cognitive function Cognitive Sta tus Patient is Progressing Toward Baseline [facility] Work Phone: Clinical Notes 10-03-2021 to 01-28-2024 Adelaida Carrion NP - 01/28/2024 2:20 PM EDVALERIE MCCAULEY - 01/28/2024 1:40 PM Padmaja Carrion NP - 01/28/2024 1:40 PM Padmaja Carrion NP - 01/28/2024 7:24 AM EDT Note Date & Type Note Facility 01-28-2024 History of Present illness Narrative Associated Problem(s): Acute cystitis without hematuria Appears to have resolved No acute symptoms Reviewed culture results Ordered in office UA: see results Will send out health trax culture Fu if return of symptoms Altered mental status due to having dehydration and UTI Pt has taken all her atb (bactrim) finished today A-symptomatic UTI unsure if she still has it Images from the original note were not included. Michelle Be is a 63 y.o. female presents with chief complaint of No chief complaint on file. HPI: ER fu for UTI and dehydration. See [facility] for HPI Was sent home on Bactrim. Feels completely fine now, no fever, chills, malodorous urine, no constipation diarrhea or abd pain SUBJECTIVE: MEDICATIONS: Current Outpatient Medications Medication Instructions amLODIPine (NORVASC) 10 mg, Oral, Daily biotin 5 MG tablet Pt taking OTC ([employer]) Calcium Citrate-Vitamin D (CITRACAL + D PO) Pt taking OTC ([employer]) carvedilol (COREG) 12.5 mg, Oral, 2 times daily with meals cetirizine (ZYRTEC) 10 mg, Oral, Daily clonazePAM (KLONOPIN) 1 mg, Oral, 2 times daily PRN DULoxetine (CYMBALTA) 60 mg, Oral, 2 times daily, Do not crush or chew. fluconazole (Diflucan) 150 MG tablet 1 pill every 3 days for a total of 3 doses fluticasone (Flonase) 50 MCG/ACT nasal spray 2 sprays, Each Nostril, Daily gabapentin (NEURONTIN) 300 mg, Oral, 2 times daily losartan (COZAAR) 100 mg, Oral, Daily Magnesium 400 MG capsule Pt taking OTC([facility]) Melatonin 12 MG tablet 1 tablet, Oral, Nightly Multiple Vitamins-Minerals (BARIATRIC MULTIVITAMINS/IRON PO) Pt taking OTC ([facility]) nystatin (Mycostatin) 460284 UNIT/GM powder 1 application , Topical, 2 times daily omeprazole (PRILOSEC) 20 mg, Oral, Daily before breakfast rOPINIRole (REQUIP) 4 mg, Oral, Nightly spironolactone (ALDACTONE) 50 mg, Oral, Daily sulfamethoxazole-trimethoprim (Bactrim DS) 800-160 MG per tablet 1 tablet, 2 times daily tiZANidine (ZANAFLEX) 4 mg, Oral, Every 8 hours PRN, 1-2 tablets traZODone (DESYREL) 150 mg, Oral, Nightly Vraylar 4.5 mg, Oral, Daily ALLERGIES: Allergies Allergen Reactions Lunesta [Eszopiclone] Hallucinations Altered mental status and non responsive Penicillins Anaphylaxis Tetracycline Hives and Unknown Levetiracetam [...] urinating, dysuria and frequency. Musculoskeletal: Positive for arthralgias and back pain. Negative for joint swelling and myalgias. Skin: Negative for rash and wound. Neurological: Negative for dizziness, tremors, seizures, syncope and headaches. Psychiatric/Behavioral: Negative for behavioral problems, self-injury and suicidal ideas. The patient is nervous/anxious. Depression Hematological: Does not bruise/bleed easily. Endocrine: Negative for polydipsia, polyphagia and polyuria. Allergic/Immunologic: Negative for environmental allergies and food allergies. PAST MEDICAL HISTORY Past Medical History: Diagnosis Date Abnormal mammogram of left breast Achilles tendinitis, right leg Acute gout of right foot, unspecified cause Allergic rhinitis 05/18/2023 Anemia Anxiety 05/18/2023 Bipolar disorder with severe depression ([facility]) 05/18/2023 Brain lesion Brain vascular malformation Chronic pain disorder Closed fracture of patella 02/04/2018 Colon polyps Constipation Degenerative cervical disc Degenerative lumbar disc Depression ([facility]) 05/18/2023 Diastolic dysfunction Dizziness 05/18/2023 Dysphagia Fibromyalgia Fibromyalgia Gastrocnemius equinus GERD (gastroesophageal reflux disease) Heart murmur Hematoma of right breast Hemiparesis ([facility]) Hemiparesis, right ([facility]) Hemorrhoid int/external hemorrhoids Hiatal hernia Iron deficiency Left foot pain 03/25/2023 Lower extremity edema Mood disorder ([facility]) mixed mood disorder OSMANY (obstructive sleep apnea) Osteoporosis ([facility]) Overactive bladder Pre-diabetes Primary hypertension ([facility]) 03/25/2023 PTSD (post-traumatic stress disorder) ([facility]) Restless leg Right knee pain Right sided weakness S/P bariatric surgery Shingles Slurred speech Stroke ([facility] 2018 Tenosynovitis, de Quervain Thoracic back pain, [...] Dementia in her father; Diabetes in her maternal grandmother and mother; Heart disease in her father; Hyperlipidemia in her father; Hypertension in her father; Kidney failure in her mother; Spinal Meningitis in her mother. OBJECTIVE: Visit Vitals BP 110/78 (BP Location: Left arm, Patient Position: Sitting, BP Cuff Size: Adult long) Comment (BP Location): forearm Pulse 81 Temp 98.7 F (Temporal) Resp 18 Ht 5' 4 Wt 285 lb 6.4 oz SpO2 99% BMI 48.99 kg/m Smoking Status Former BSA 2.41 m Physical Exam Vitals and nursing note reviewed. Constitutional: General: She is not in acute distress. Appearance: Normal appearance. HENT: Head: Normocephalic and atraumatic. Right Ear: External ear normal. Left Ear: External ear normal. Nose: Nose normal. Mouth/Throat: Mouth: Mucous membranes are moist. Eyes: Extraocular Movements: Extraocular movements intact. Conjunctiva/sclera: Conjunctivae normal. Cardiovascular: Rate and Rhythm: Normal rate and regular rhythm. Pulses: Normal pulses. Heart sounds: Normal heart sounds. Pulmonary: Effort: Pulmonary effort is normal. Breath sounds: Normal breath sounds. No wheezing or rales. Abdominal: General: Bowel sounds are normal. There is no distension. Palpations: Abdomen is soft. There is no mass. Tenderness: There is no abdominal tenderness. Musculoskeletal: General: Normal range of motion. Cervical back: Normal range of motion and neck supple. Right lower leg: No edema. Left lower leg: No edema. Skin: General: Skin is warm and dry. Capillary Refill: Capillary refill takes 2 to 3 seconds. Findings: No rash. Neurological: General: No focal deficit present. Mental Status: She is alert and oriented to person, place, and time. Psychiatric: Mood and Affect: Mood normal. Behavior: Behavior normal. Thought Content: Thought content normal. Judgment: Judgment normal. ASSESSMENT AND PLAN: No follow-ups on file. Problem List Items Addressed This Visit Morbid obesity (CMS/HCC) Tobacco dependence - Primary The patient has been advised of the risks of continued smoking: stroke, SD, all forms of cancer, lung disease, and . Options for quitting smoking include: cold turkey, hypnosis, acupuncture, nicotine replacement meds (gum, lozenges, and patches), Buproprion, and Varenicline. At this time pt is encouraged to evaluate their goals for wanting to quit smoking, and reach out to provider when ready to start this process Acute cystitis without hematuria Appears to have resolved No acute symptoms Reviewed culture results Ordered in office UA: see results Will send out health trax culture Fu if return of symptoms Relevant Orders URINARY TRACT INFECTION (HTRX) POCT Urinalysis dipstick Needs flu shot Relevant Orders Flu vaccine, MDCK, quadrivalent, PF ([id number]) (Flucelvax single dose syringe) Associated Problem(s): Tobacco dependence The patient has been advised of the risks of continued smoking: stroke, SD, all forms of cancer, lung disease, and . Options for quitting smoking include: cold turkey, hypnosis, acupuncture, nicotine replacement meds (gum, lozenges, and patches), Buproprion, and Varenicline. At this time pt is encouraged to evaluate their goals for wanting to quit smoking, and reach out to provider when ready to start this process documented in this encounter [facility] 05-18-2023 History of Present illness Narrative Associated [...] (BARIATRIC MULTIVITAMINS/IRON PO) Bariatric Multivitamins/Iron nystatin (Mycostatin) 695768 UNIT/GM powder 1 application , Topical, 2 [...] Anxiety 05/18/2023 Bipolar disorder with severe depression ([facility]) 05/18/2023 Brain vascular malformation Chronic pain disorder Colon polyps Constipation Degenerative cervical disc Degenerative lumbar disc Depression ([facility]) 05/18/2023 Diastolic dysfunction Dizziness 05/18/2023 Dysphagia Fibromyalgia Gastrocnemius equinus GERD (gastroesophageal reflux disease) Heart murmur Hematoma of right breast Hemiparesis, right ([facility]) Hemorrhoid int/external hemorrhoids Hiatal hernia Iron deficiency Left foot pain 03/25/2023 Lower extremity edema Mood disorder ([facility]) mixed mood disorder OSMANY (obstructive sleep apnea) Osteoporosis ([facility]) Overactive bladder Pre-diabetes Primary hypertension ([facility]) 03/25/2023 PTSD (post-traumatic stress disorder) ([facility]) Restless leg Right knee pain Right sided weakness S/P bariatric surgery Shingles Slurred speech Stroke ([facility]) 2018 Tenosynovitis, de Quervain Thoracic back pain, [...] yearly and prn documented in this encounter [facility] 03-23-2023 Procedure note [facility] 12-19-2022 Evaluation note Encounter Date Diagnosis Assessment Notes Dec, Skin candidiasis (ICD-10 - B37.2) Drink plenty fluids, get plenty of rest. Continue home medications as prescribed. Take the Diflucan as prescribed until gone. Follow-up with your family physician if no improvement in 2 to 3 days [facility] Other 08-17-2023 Discharge summary Author Eduardo bautista [facility] November 20, 2022 6:38am Note Date/Time November 20, 2022 6: 38am [facility] [address] [place] [address] Discharge Summary Signed Patient: Michelle Be MR#: [id number] : 1960 Acct:[id number] Age/Sex: 61 / F Adm Date: 3 Loc: Room: [address] [place] [address]: Gaudencio Monk MD Copies to: MD Adelaida Álvarez, PLASTIC DIE MAKER APPRENTICEMaldonadoC~ Providers Date of Discharge: 11/20/22 Discharging Provider: [...] at that time.? She reports moving to [place] from [place] in 2011 and was then diagnosed with bipolar disorder at [facility] in [place], where she still follows with a therapist.? Shereports that she has been with 7 therapists in the last 9 years and is currentlycompleting EMDR with her current therapist. 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 (insert date/time [...] signed by Eduardo Monk MD> 11/20/22 0638 [facility] Work Phone: 1(440) 202-296708-16-2023 Progress note Author Eduardo bautista [facility] November 19, 2022 6:25am Note Date/Time November 19, 2022 6: 25am [facility] [address] [place] [address] Psychiatry Progress Note Signed Patient: Michelle Be MR#: [id number] : 1960 Acct:[id number] Age/Sex: 61 / F Adm Date: 3 Loc: Room: [address] [place] [address] Type : ADM IN Attending Dr: Gaudencio [...] <Electronically signed by Eduardo Monk MD> 11/19/22624 [facility] Work Phone: 1(526) 700-908408-15-2023 Progress note Author Eduardo bautista [facility] November 18, 2022 11:01am Note Date/Time November 18, 2022 10 :11am [facility] [address] [place] [address] Psychiatry Progress Note Signed Patient: Michelle Be MR#: [id number] : 1960 Acct:[id number] Age/Sex: 61 / F Adm Date: 3 Loc: 1S Room: [address] [place] [address] Type : ADM IN Attending Dr: Gaudencio [...] requesting a schedule 2 referring to [place] for pain management specifically every 4-6 hours [...] time Documented By: Eduardo Monk MD 3 [id number] Signed By: <Electronically signed by Eduardo Monk MD> 11/18/22 1101 <Electronically signed by MD DA Rangel> 11/18/22 1011 [facility] Work Phone: 1(103) 302-161408-14-2023 History and physical note Author Eduardo bautista [facility] November 17, 2022 12:48pm Note Date/Time November 17, 2022 12 :48pm [facility] [address] [place] [address] Psychiatry H&P Signed Patient: Michelle Be MR#: [id number] : 1960 Acct:[id number] Age/Sex: 61 / F Adm Date: 3 Loc: 1S Room: 9J6061-0 Type: ADM IN Attending Dr: Gaudencio Monk MD Copies to: MD Adelaida Álvarez PLASTIC DIE MAKER APPRENTICE-C~ Date of Service: 11/17/2022 HPI History of [...] at that time. She reports moving to [place] from [place] in 2011 and was then diagnosed with bipolar disorder at [facility] in [place], where she still follows with a therapist. Shereports that she has been with 7 therapists in the last 9 years and is currentlycompleting EMDR with her current therapist. Past hospitalizations: Her most recent hospitalization was 5 years ago [facility] for the same feeling she is [...] worked since 2010 due to her fibromyalgia. [facility]. Relationships: Reports having [...] equal bilaterally. CN XII: Tongue protrusion midline [facility] Medical History (Updated 11/17/22 @ [...] signed by Eduardo Monk MD> 11/17/22 1248 [facility] Work Phone: 1(565) 889-297503-23-2023 NoteCONSULTATION CONSULTATION DATE: 06/26/2022 To: Nurse Carrion [...] joint injection under fluoroscopic guidance.[facility] [id number] NotePROCEDURE: XR SHOULDER RT 2V or > [...] authenticated by: KINGSLEY CLEMENTS Date: 2022-05-09 09:21[facility] [id number] NotePROCEDURE: XR WRIST LT MIN 3 V [...] Electronically authenticated by: KINGSLEY CLEMENTS Date: 2022-04-28 13:31[facility]12-29-2022 NoteCONSULTATION CONSULTATION DATE: 04/03/2022 HISTORY OF [...] three months, unless otherwise indicated.[facility] [id number] NoteCONSULTATION CONSULTATION DATE: 01/02/2022 This is a [...] was sent by Dr. Macedo to [facility] in [place] for the compounded cream. She needs a [...] months' time unless otherwise indicated.[facility] [id number] NotePROCEDURE: XR ANKLE RT MIN 3 VIEWS, [...] Electronically authenticated by: KINGSLEY CLEMENTS Date: 2022-01-01 13:11[facility]09-28-2022 NotePROCEDURE: XR ANKLE RT MIN 3 [...] Electronically authenticated by: KINGSLEY CLEMENTS Date: 2022-01-01 13:11[facility]08-18-2022 NotePROCEDURE: XR FOOT RT MIN 3 VIEWS HISTORY: Pain in right foot , chronic COMPARISON: XR foot right 2020 FINDINGS: BONES:No fracture, dislocation, bone lesion. Small calcaneal degenerative enthesophytes. SOFT TISSUES:No visible soft tissue swelling. EFFUSION:None visible. OTHER: Negative. IMPRESSION: 1. No acute bone abnormality or significant degenerative joint disease. Electronically authenticated by: KINGSLEY CLEMENTS Date: 2021-11-21 16:13[facility]06-30-2022 NoteCONSULTATION CONSULTATION DATE: 10/03/2021 This is [...] patient agrees with the plan of care. [facility] Signed and Approved by: ZELDA MCDANIEL . 10/10/2021 10:22:00[facility] Diagnosis Onset Date Resolution Status Allergies acute Bipolar 2 disorder acute Hypertension acute Morbid obesity with BMI of 45.0-49.9, adult acute OSMANY (obstructive sleep apnea) acute Restless legs syndrome acute [facility] Work Phone: Evaluation noteNo InformationNort [employer] Other Evaluation noteNo assessment information available [facility] Work Phone: Evaluation note* Diagnosis Encounter for annual wellness visit (AWV) in Medicare patient- Primary OSMANY (obstructive sleep apnea) Obstructive sleep apnea (adult) (pediatric) Chronic pain disorder Chronic pain syndrome Gastroesophageal reflux disease, unspecified whether esophagitis present Overactive bladder Hypertonicity of bladder Lower extremity edema Edema Pre-diabetes Other abnormal glucose Morbid obesity ([facility]) Morbid obesity Yeast infection of the skin Candidiasis of skin and nails Tobacco dependence Tobacco use disorder Mood disorder ([facility]) Unspecified episodic mood disorder Primary hypertension ([facility]) Unspecified essential hypertension Left hip pain Pain in joint, pelvic region and thigh Open wound of anterior abdominal wall, initial encounter documented in this encounter [facility] HealthcareEvaluation note* Diagnosis Acute cystitis with hematuria- Primary documented in this encounter [facility] HealthcareEvaluation note* Diagnosis Left foot pain- Primary Pain in soft tissues of limb Primary hypertension ([facility]) Unspecified essential hypertension Class 3 severe obesity due to excess calories without serious comorbidity with body mass index (BMI) of 45.0 to 49.9 in adult ([facility]) Encounter for annual wellness visit (AWV) in Medicare patient- Primary OSMANY (obstructive sleep apnea) Obstructive sleep apnea (adult) (pediatric) Chronic pain disorder Chronic pain syndrome Gastroesophageal reflux disease, unspecified whether esophagitis present Overactive bladder Hypertonicity of bladder Lower extremity edema Edema Pre-diabetes Other abnormal glucose Morbid obesity ([facility]) Morbid obesity Yeast infection of the skin Candidiasis of skin and nails Tobacco dependence Tobacco use disorder Mood disorder ([facility]) Unspecified episodic mood disorder Primary hypertension ([facility]) Unspecified essential hypertension Left hip pain Pain in joint, pelvic region and thigh Open wound of anterior abdominal wall, initial encounter Primary hypertension ([facility])- Primary Unspecified essential hypertension Yeast infection of the skin Candidiasis of skin and nails Morbid obesity ([facility]) Morbid obesity Primary hypertension ([facility])- Primary Unspecified essential hypertension Encounter for screening mammogram for malignant neoplasm of breast Gastroesophageal reflux disease, unspecified whether esophagitis present Acute gout of right foot, unspecified cause Osteoporosis, unspecified osteoporosis type, unspecified pathological fracture presence ([facility]) Morbid obesity ([facility]) Morbid obesity Pre-diabetes Other abnormal glucose Anemia, unspecified type Vitamin deficiency Unspecified vitamin deficiency Post-viral cough syndrome Primary hypertension ([facility])- Primary Unspecified essential hypertension Allergic rhinitis, unspecified Acute cough Morbid obesity ([facility]) Morbid obesity Former cigarette smoker Personal history of tobacco use, presenting hazards to health Toxic metabolic encephalopathy- Primary Hemiparesis, right ([facility]) Unspecified hemiplegia affecting unspecified side Acute respiratory failure with hypoxia ([facility]) Heart murmur Undiagnosed cardiac murmurs Primary hypertension ([facility]) Unspecified essential hypertension Morbid obesity ([facility]) Morbid obesity Bipolar disorder with severe depression ([facility]) Slurred speech Other speech disturbance Bilateral lower extremity edema- Primary Primary hypertension ([facility]) Unspecified essential hypertension Lower extremity edema Edema Essential (primary) hypertension ([facility]) Unspecified essential hypertension Gastro-esophageal reflux disease without esophagitis Allergic rhinitis, unspecified Bilateral lower extremity edema- Primary Morbid (severe) obesity due to excess calories ([facility]) Body mass index (BMI) 45.0-49.9, adult ([facility]) Pre-diabetes Other abnormal glucose Bilateral lower extremity edema- Primary Essential (primary) hypertension ([facility]) Unspecified essential hypertension Allergic rhinitis, unspecified OSMANY (obstructive sleep apnea) Obstructive sleep apnea (adult) (pediatric) Primary hypertension ([facility]) Unspecified essential hypertension Morbid obesity ([facility]) Morbid obesity Acute cystitis without hematuria- Primary Tobacco dependence Tobacco use disorder Needs flu shot Need for prophylactic vaccination and inoculation against influenza Morbid obesity ([facility]) Morbid obesity documented in this encounter [facility] HealthcareEvaluation note* Diagnosis Left foot pain- Primary Pain in soft tissues of limb Primary hypertension ([facility]) Unspecified essential hypertension Class 3 severe obesity due to excess calories without serious comorbidity with body mass index (BMI) of 45.0 to 49.9 in adult ([facility]) Encounter for annual wellness visit (AWV) in Medicare patient- Primary OSMANY (obstructive sleep apnea) Obstructive sleep apnea (adult) (pediatric) Chronic pain disorder Chronic pain syndrome Gastroesophageal reflux disease, unspecified whether esophagitis present Overactive bladder Hypertonicity of bladder Lower extremity edema Edema Pre-diabetes Other abnormal glucose Morbid obesity ([facility]) Morbid obesity Yeast infection of the skin Candidiasis of skin and nails Tobacco dependence Tobacco use disorder Mood disorder ([facility]) Unspecified episodic mood disorder Primary hypertension ([facility]) Unspecified essential hypertension Left hip pain Pain in joint, pelvic region and thigh Open wound of anterior abdominal wall, initial encounter Primary hypertension ([facility])- Primary Unspecified essential hypertension Yeast infection of the skin Candidiasis of skin and nails Morbid obesity ([facility]) Morbid obesity Primary hypertension ([facility])- Primary Unspecified essential hypertension Encounter for screening mammogram for malignant neoplasm of breast Gastroesophageal reflux disease, unspecified whether esophagitis present Acute gout of right foot, unspecified cause Osteoporosis, unspecified osteoporosis type, unspecified pathological fracture presence ([facility]) Morbid obesity ([facility]) Morbid obesity Pre-diabetes Other abnormal glucose Anemia, unspecified type Vitamin deficiency Unspecified vitamin deficiency Post-viral cough syndrome Primary hypertension ([facility] Primary Unspecified essential hypertension Allergic rhinitis, unspecified Acute cough Morbid obesity ([facility]) Morbid obesity Former cigarette smoker Personal history of tobacco use, presenting hazards to health Toxic metabolic encephalopathy- Primary Hemiparesis, right ([facility]) Unspecified hemiplegia affecting unspecified side Acute respiratory failure with hypoxia ([facility]) Heart murmur Undiagnosed cardiac murmurs Primary hypertension ([facility]) Unspecified essential hypertension Morbid obesity ([facility]) Morbid obesity Bipolar disorder with severe depression ([facility]) Slurred speech Other speech disturbance Bilateral lower extremity edema- Primary Primary hypertension ([facility]) Unspecified essential hypertension Lower extremity edema Edema Essential (primary) hypertension ([facility]) Unspecified essential hypertension Gastro-esophageal reflux disease without esophagitis Allergic rhinitis, unspecified Bilateral lower extremity edema- Primary Morbid (severe) obesity due to excess calories ([facility]) Body mass index (BMI) 45.0-49.9, adult ([facility]) Pre-diabetes Other abnormal glucose Bilateral lower extremity edema- Primary Essential (primary) hypertension ([facility]) Unspecified essential hypertension Allergic rhinitis, unspecified OSMANY (obstructive sleep apnea) Obstructive sleep apnea (adult) (pediatric) Primary hypertension ([facility]) Unspecified essential hypertension Morbid obesity ([facility]) Morbid obesity Acute cystitis without hematuria- Primary Tobacco dependence Tobacco use disorder Needs flu shot Need for prophylactic vaccination and inoculation against influenza Morbid obesity ([facility]) Morbid obesity Restless leg Restless legs syndrome (RLS) documented in this encounter [facility] HealthcareHistory and physical note Author Jace Graham [facility] March 23, 2023 11:21am Note Date/Time March 23, 2023 11:21am [facility] [address] [place] [address] Gastroenterology H&P Signed Patient: Michelle Be MR#: [id number] : 1960 Acct:[id number] Age/Sex: 62 / F Adm Date: 3 [...] <Electronically signed by Jace Graham MD> 03/23/231120 [facility] Work Phone: History general Narrative - Reported* [...] see above surg Hospitalization History stroke 2018 [facility] Other Hospital Discharge instructions Additional Instructions Regular Diet No Activity Restrictions[facility] Work Phone: Hospital Discharge instructions Additional Instructions [...] years. -Follow up with PCP. -Office number [phone].[facility] Work Phone: Summary Purpose Family History Relationship [...] and content) DATE CREATED AUTHOR 02/18/2019 [facility] DATE CREATED AUTHOR AUTHOR'S ORGANIZ ATION 11/15/2021 [facility] DATE CREATED AUTHOR AUTHOR'S ORGANIZ ATION 08/16/2022 [facility] DATE CREATED AUTHOR AUTHOR'S ORGANIZ ATION 01/28/[address] [facility] DATE CREATED AUTHOR AUTHOR'S ORGANIZ ATION 01/30/2024 [facility] EPIC DATE CREATED AUTHOR AUTHOR'S ORGANIZ ATION 01/31/2024 [facility] Care Teams (unrecognized sec tion and [...] Carrera MD Other Provider Active Julio César Frings , DO Other Provider Active Valentine Mak MD Other Provider Active Raymond Strong MD Other Provider Active Joellen Le , PLASTIC DIE MAKER APPRENTICE-C Other Provider Active Severo Yancey MD Other Provider Active Rao Webber MD Other Provider Active Yuan Shi MD Other Provider Active Delroy Ramirez MD Other Provider Active Berta Comer , DO Other Provider Active Negrito Ruiz , DO Other Provider Active Lacho Singh , DO Other Provider Active Rachana Hobson , FILM AND VIDEO GRAPHICS DESIGNER Other Provider Active Rob Lake , DO Other Provider Active Jeff Alvarez MD Other Provider Active Urmila Rinaldi , FILM AND VIDEO GRAPHICS DESIGNER Other Provider Active Bina Mayberry , FILM AND VIDEO GRAPHICS DESIGNER Other Provider Active Mir Bradford MD Other Provider Active Te Da Silva MD Other Provider Active Debra Landaverde RN Other Provider Active Team Status: Inactive Member Role Status Dates Adelaida Carrion Primary Care Provider Active Jace Graham MD Attending Provider Active [employer] Executive Director Relationship Specialty Start Date End Date José Luis Roberts MD [address] [place] [id number] PCP - General Family Medicine 05/18/23 Adelaida Carrion NP [address] [place] [phone] Referring Physician Nurse Practitioner 10/14/22 [employer] Executive Director Relationship Specialty Start Date End Date José Luis Roberts MD [address] [place] [phone] PCP - General Family Medicine 05/18/23 Adelaida Carrion NP [address] [place] [phone] Referring Physician Nurse Practitioner 10/14/22 [employer] Executive Director Relationship Specialty Start Date End Date José Luis Roberts MD [address] [place] [phone] PCP - General Family Medicine 05/18/23 Adelaida Carrion NP [address] [place] [phone] Referring Physician Nurse Practitioner 10/14/22 [employer] Executive Director Relationship Specialty Start Date End Date José Luis Roberts MD [address] [place] [phone] PCP - General Family Medicine 05/18/23 Adelaida Carrion NP Referring Physician Nurse Practitioner 10/14/22 Miriam Suarez DO [address] [place] [address] Referring Physician Neurology 06/29/23 [place] LPN Licensed Practical Nurse Family Medicine 12/18/23 [employer] Executive Director Relationship Specialty Start Date End Date José Luis Roberts MD [address] [place] [phone] PCP - General Family Medicine 05/18/23 Adelaida Carrion NP Referring Physician Nurse Practitioner 10/14/22 Miriam Suarez DO [address] [place] [address] Referring Physician Neurology 06/29/23 [place] LPN Licensed Practical Nurse Family Medicine 12/18/23 [employer] Executive Director Relationship Specialty Start Date End Date Unallocated, Familias MD Mariela [address] [place] [address] PCP - General Family Medicine 01/27/24 Miriam Suarez DO [address] [place] [address] Referring Physician Neurology 06/29/23 [place] LPN Licensed Practical Nurse Family Medicine 12/18/23 Adelaida Carrion, BRIANA [address] [place] [phone] Nurse Practitioner Family Medicine 01/27/24 [employer] Executive Director Relationship Specialty Start Date End Date Unallocated, Geeta Sierra MD [address] [place] [address] PCP - General Family Medicine 01/27/24 Miriam Suarez DO [address] [place] [address] Referring Physician Neurology 06/29/23 Diana De Leon LPN Licensed Practical Nurse Family Medicine 12/18/23 Adelaida Carrion, BRIANA [address] [place] [phone] Nurse Practitioner Family Medicine 01/27/24 [employer] Executive Director Relationship Specialty Start Date End Date José Luis Roberts MD [address] [place] [phone] PCP - General Family Medicine 02/02/24 Miriam Suarez DO [address] [place] [address] Referring Physician Neurology 06/29/23 Diana De Leon LPN Licensed Practical Nurse Family Medicine 12/18/23 Adelaida Carrion NP [address] [place] [address] Nurse Practitioner Family Medicine 01/27/24 REASON FOR VISIT (unrecogniz ed section and content) Reason Comments Med Refill FOR RECORDS PERTAINING TO PATIENTS WHO ARE [...] BE BASED ON THE PRIMARY CLINICAL RECORDS. [employer] provides no warranty or guarantee of the accuracy or completeness of information in this document.
[2024-02-09 06:53] VITALS: BP 128/80; PULSE 68; TEMP 36.6; O2SAT 98
[2024-02-09] MEDS: 0.9 % SODIUM CHLORIDE 500 ML 50 ML IV (07:03)
[2024-02-09] MEDS: DEXAMETHASONE SOD PHOS 4 MG/ML VIAL INJ (08:02)
[2024-02-09] MEDS: LIDOCAINE HCL 2% 400 MG/20 ML MDV 5 ML INJ (08:02)
[2024-02-09] MEDS: BUPIVACAINE HCL 0.25% PF 25 MG/10 ML VIAL 5 ML INJ (08:02)
[2024-02-09 08:09] VITALS: BP 106/72; PULSE 77; TEMP 36.6; O2SAT 98
[2024-02-09 08:12] VITALS: BP 104/68; PULSE 78; TEMP 36.6; O2SAT 96
--- NOTE | 2024-02-09 08:32 | P.ON_ITS ---
Date of procedure: 02/09/24 Pre-op diagnosis: Lumbar Spondylsos Post-op diagnosis: same as pre-op Procedure: Left thoracic 01/14, 02/15 Radiofrequency ablation Under fluoroscopic guidance Rhizotomy was created using radio frequency ablation at 80?C for 90 seconds 1 to 2 lesions created at each site. Post lesioning injection of 2 mL each of 0.25% Marcaine and 2% lidocaine with Dexmethasone 4mg injected at each site IV in place with NS at KVO Anesthesia local 2% lidocaine for Anesthesia Other: MAC Timeout process compliant After informed consent obtained.Patient brought to the procedure room placed in the prone position skin overlying the area was prepped and draped in a sterile f ashion using betadine. 25 gauge needle was used to create a skin wheal over each of the targeted areas utilizing 2% lidocaine. A rhizotomy needle with a 10 mm active tip was inserted over each of the anesthetized areas and directed towards each of the medial branches accomplished under fluoroscopic guidance. after encountering the same we had positive sensory stimulation, negative motor stimulation was noted. lesions were then created. Post lesioning, steroid solution was injected needles removed. Patient was transferred to recovery room in stable condition to be discharged home after meeting criteria. Anesthesia: MAC Surgeon: Tejal Montaño Condition: stable Disposition: PACU
== END 2024-02-09 08:35 | disposition home or self-care (01) ==
LOC: SURGOUT 06:36
PROVIDERS: PCP Nurse Practitioner; Visit Provider Anesthesiology Pain Medicine
DX: M47.816 Spondylosis without myelopathy or radiculopathy, lumbar region (principal)
CPT/HCPCS: 64633; 64634; J0665; J1100; J2704

== ENCOUNTER 2024-02-16 21:24 | Outpatient (REF) | payer MEDICARE, SELFPAY ==
--- OUTSIDE RECORDS SUMMARY | 2024-02-16 21:28 | XMS_ITS | CCD ---
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 Name Role Phone EBRAHEIM, SUKI Admitting Unavailable EBRAHEIM, SUKI Attending Unavailable AICHHOLZ, ADELAIDA Referring Unavailable AICHHOLZ, ADELAIDA Primary Care Unavailable [place] Procedure Practitioner Unavailab SUKI Jacob Surgeon Unavailable [place] Procedure Practitioner Unavailab CHAPARRITA Goncalves Surgeon Unavailable BRIDGETTE MACEDO Admitting Unavailable BRIDGETTE MACEDO Attending Unavailable AICHHOLZ, BUSINESS LAW PROFESSOR ADELAIDA Primary Care Unavailable ZIMMER ., DR FINA Iverson Admitting Unavailable ZIMMER ., DR FINA Iverson Attending Unavailable AICHHOLZ, BUSINESS LAW PROFESSOR ADELAIDA Primary Care Unavailable MCDANIEL ., ZELDA Consulting Unavailable LAKSHMIPATHY ., NARENDRANATH Consulting Paula vailable LAKSHMIPATHY ., NARENDRANATH Admitting Paula vailable LAKSHMIPATHY ., NARENDRANATH Attending Paula vailable AICHHOLZ, BUSINESS LAW PROFESSOR ADELAIDA Primary Care Unavailable LAKSHMIPATHY ., NARENDRANATH Consulting Paula vailable AICHHOLZ, BUSINESS LAW PROFESSOR ADELAIDA Primary Care Unavailable MARKER ., DR CHAUDHRY Admitting Unavailable MARKER ., DR CHAUDHRY Attending Unavailable MARKER ., DR CHAUDHRY Consulting Unavailable AICHHOLZ, BUSINESS LAW PROFESSOR ADELAIDA Admitting Unavailable AICHHOLZ, BUSINESS LAW PROFESSOR ADELAIDA Attending Unavailable AICHHOLZ, BUSINESS LAW PROFESSOR ADELAIDA Primary Care Unavailable ZIMMER ., DR FINA Iverson Admitting Unavailable ZIMMER ., DR FINA Iverson Attending Unavailable AICHHOLZ, BUSINESS LAW PROFESSOR ADELAIDA Primary Care Unavailable MCDANIEL ., ZELDA Consulting Unavailable ZIMMER ., DR FINA Iverson Admitting Unavailable ZIMMER ., DR FINA Iverson Attending Unavailable AICHHOLZ, BUSINESS LAW PROFESSOR ADELAIDA Primary Care Unavailable MCDANIEL ., ZELDA Consulting Unavailable AICHHOLZ, BUSINESS LAW PROFESSOR ADELAIDA Admitting Unavailable AICHHOLZ, BUSINESS LAW PROFESSOR ADELAIDA Attending Unavailable AICHHOLZ, BUSINESS LAW PROFESSOR ADELAIDA Primary Care Unavailable AICHHOLZ, BUSINESS LAW PROFESSOR ADELAIDA Consulting Unavailable AICHOLZ, BUSINESS LAW PROFESSOR ADELAIDA Admitting Unavailable AICHHOLZ, BUSINESS LAW PROFESSOR ADELAIDA Attending Unavailable AICHOLZ, [facility] ADELAIDA Primary Care Unavailable AICHHOLZ, BUSINESS LAW PROFESSOR ADELAIDA Consulting Unavailable MISC, DR COTE Admitting Unavailable MISC, DR COTE Attending Unavailable AICHOLZ, [facility] ADELAIDA Primary Care Unavailable AICHHOLZ, BUSINESS LAW PROFESSOR ADELAIDA Consulting Unavailable ELYSSA, DR COTE Consulting Unavailable STARR, DR KINGSLEY Atkins Consulting Unavailable ZIMMER ., DR FINA Iverson Admitting Unavailable ZIMMER ., DR FINA Iverson Attending Unavailable AICHOLZ, [facility] ADELAIDA Primary Care Unavailable MCDANIEL ., ZELDA Consulting Unavailable ZIMMER ., DR FINA Iverson Admitting Unavailable ZIMMER ., DR FINA Iverson Attending [facility] Unavailable ZIMMER ., DR FINA Iverson Consulting Unavailable OMID LAY Consulting Unavailable ZIMMER ., DR FINA Iverson Admitting Unavailable ZIMMER ., DR FINA Iverson Attending Unavailable [facility], [facility] Primary Care Unavailable MCDANIEL ., ZELDA Consulting [facility]available [facility] Primary Care Unavailable HALKER ., ARIAN Admitting Unavailable HALKER ., ARIAN Attending Unavailable LAKSHMIPATHY ., NARENDRANATH Consulting Paula vailable HALKER ., ARIAN Consulting Unavailable LAKSHMIPATHY ., NARENDRANATH Admitting Paula vailable LAKSHMIPATHY ., NARENDRANATH Attending Paula vailable [facility] Primary Care Unavailable LAKSHMIPATHY ., NARENDRANATH Consulting Paula vailable AICHOLZ, BUSINESS LAW PROFESSOR ADELAIDA Admitting Unavailable AICHOLZ, BUSINESS LAW PROFESSOR ADELAIDA Attending Unavailable AICHOLZ, BUSINESS LAW PROFESSOR ADELAIDA Primary Care Unavailable AICHHOLZ, BUSINESS LAW PROFESSOR ADELAIDA Consulting Unavailable BRIDGETTE MACEDO Admitting Unavailable BRIDGETTE MACEDO Attending Unavailable AICHOLZ, BUSINESS LAW PROFESSOR ADELAIDA Primary Care Unavailable STARR, DR KINGSLEY Atkins Consulting Unavailable BRIDGETTE MACEDO Consulting Unavailable GILMER NEVES Admitting Unavailable GILMER NEVES Attending Unavailable PURA, GILMER Consulting Unavailable AICHOLZ, BUSINESS LAW PROFESSOR ADELAIDA Primary Care Unavailable AICHOLZ, BUSINESS LAW PROFESSOR ADELAIDA Primary Care Unavailable DR WILLI RINALDI Admitting Unavailable DEEJAY, DR WILLI Atkins Attending Unavailable DR WILLI RINALDI Consulting Unavailable AICHOLZ, BUSINESS LAW PROFESSOR ADELAIDA Primary Care Unavailable ALMAZ ., DANNY Admitting Unavailable ALMAZ ., DANNY Attending Unavailable DR KINGSLEY CLEMENTS Consulting Unavailable ALMAZ ., DANNY Consulting Unavailable LAKSHMIPATHY ., NARENDRANATH Admitting Paula vailable LAKSHMIPATHY ., NARENDRANATH Attending Paula vailable AICHHOLZ, BUSINESS LAW PROFESSOR ADELAIDA Primary Care Unavailable AICHHOLZ, BUSINESS LAW PROFESSOR ADELAIDA Admitting Unavailable AICHHOLZ, BUSINESS LAW PROFESSOR ADELAIDA Attending Unavailable AICHHOLZ, BUSINESS LAW PROFESSOR ADELAIDA Primary Care Unavailable AICHHOLZ, BUSINESS LAW PROFESSOR ADELAIDA Admitting Unavailable AICHHOLZ, BUSINESS LAW PROFESSOR ADELAIDA Attending Unavailable AICHHOLZ, BUSINESS LAW PROFESSOR ADELAIDA Primary Care Unavailable AICHHOLZ, BUSINESS LAW PROFESSOR ADELAIDA Consulting Unavailable ZIEBER, DR KINGSLEY Atkins Consulting Unavailable HALKER ., ARIAN Admitting Unavailable HALKER ., ARIAN Attending Unavailable AICHHOLZ, BUSINESS LAW PROFESSOR ADELAIDA Primary Care Unavailable Aichholz, Adelaida J Primary Care Provider [phone] MD Gaudencio Monk Admit Provider [phone] MD Gaudencio Monk Attending Provider [phone] JOHANN Vieira Other Provider Unavailable JOHANN Pina Other Provider Unavailable JOHANN Hurtado Other Provider Unavailable JOHANN Crooks Other Provider Unavailable JOHANN Mejias Other Provider Unavailable JOHANN Kim Other Provider Unavailable MD Walker Pringle Other Provider Dilans, [employer]ET[employer] V[employer] Adelaida Huddleston Other Provider DO Jessica Murillo Other Provider [phone] MD Obdulio Bragg Other Provider DO Joon Cristina Other Provider [phone] MD Torin Robert Other Provider MD Dawn [...] Care Provider MD Jace Graham Attending Provider [phone] Sheyla LIME PULLER, Adelaida Unavailable José Luis Roberts MD Primary Care Provider Sheyla LIME PULLER, Adelaida Unavailable Miriam Suarez DO Unavailable Diana De Leon LPN Unavailable Unavailable Jace Graham Attending Unavailable Jace Graham Admitting Unavailable Aichholz, Adelaida J Primary Care Unavailable Aichholz, Adelaida J Primary Care Unavailable Eduardo Monk Attending Unavailab le Dat Monkelrahman Admitting Unavailab kayleen Garner MD, Noms Provider Primary Care Provi kellee Aichholz LIME PULLER, Adelaida Unavailable ASHLEIGH HINES Attending Unavailable AICHHOLZ, [...] José Luis Roberts MD Primary Care Provider Allergies Allergy Classification Reported Allergen(s) Allergy Type Date of Onset Reaction(s) Facility (7 sources) Adhesive Tape; Translations: [ADHESIVE TAPE] Propensity to adverse reactions (disorder) 04-06-19 14 rash [facility] (3 sources) levETIRAcetam; Translations: [KEPPRA] Drug Allergy 07-02-19 19 [facility] (3 sources) milnacipran; Translations: [SAVELLA] Drug Allergy 03-14-20 13 [facility] (1 source) Penicillin; Translations: [PENICILLIN] Drug Allergy 01-16-20 18 [facility] (5 sources) Prochlorperazin e; Translations: [COMPAZINE] Drug Allergy 03-14-20 13 agitation [facility] (18 sources) Tetracycline; Translations: [TETRACYCLINE] Drug Allergy 04-06-19 13 Hives, Unknown [facility] (4 sources) Penicillins Drug allergy (disorder) 04-06-19 13 Unknown Reaction [facility] (15 sources) levETIRAcetam; Translations: [levetiracetam] Drug Allergy 12-13-19 22 Hallucinations , Other [facility] (15 sources) milnacipran; Translations: [milnacipran] Drug Allergy 12-13-19 22 hives, Hallucinations , Other, Unknown [facility] (13 sources) Prochlorperazin e; Translations: [prochlorperazi ne] Drug Allergy 12-13-19 22 Unknown, Other [facility] (2 sources) Penicillin G Drug Allergy as a child [facility] [employer] Other (2 sources) Tetracaine Drug Allergy Unknown [facility] [employer] Other (10 sources) Penicillins Drug Intolerance 12-13-19 22 Anaphylaxis [facility] (10 sources) Other Propensity to adverse reactions 12-13-19 22 Other [facility] (10 sources) Wound Dressing Adhesive Drug Allergy 09-20-19 23 Rash, Unknown [facility] (6 sources) Eszopiclone Drug Allergy 09-21-19 24 Hallucinations , Anaphylaxis [facility] (1 source) Penicillin Drug Allergy 12-20-19 23 [facility] (1 source) Penicillins Drug allergy (disorder) 03-23-20 23 [facility] (1 source) Tetracaine Drug Allergy 12-20-19 23 [facility] Medications Current Medications Medication [...] 5 MG tabl et Pt taking OTC (Re[employer]D) Active biotin 1 MG caps ule Biotin [...] (CITRACAL + D PO) Pt taking OTC ([employer]) Active Calcium Citrate- Vitamin D (CITRACAL + [...] sources) Magnesium 400 MG capsule Pt taking OTC([employer]) Active Magnesium 400 MG capsule magnesium 0 [...] e Melatonin 12 MG tablet Indications: from [employer] Take 1 tablet by mouth at bedtime Active take 2 tablets by [facility] once daily at bedtime Melatonin 10 MG 2 TABLETS Orally QHS Act hemant Melatonin 12 MG tablet dispe rsible (4 sources) Melatonin 12 MG tablet dispersible 1 (one) time each day at the same time. 0 Active Multiple Vitamins-Minerals ( BARIATRIC MULTIVITAMINS/IRON PO) (10 sources) Multiple Vitamin s-Minerals (BARIATRIC MULTIVITAMINS/IRON PO) Pt taking OTC (Realeyes 3D) Active Multiple Vitamin s-Minerals (BARIATRIC MULTIVITAMINS/IRON PO) Bariatric Multivitamins/Iron 0 Active Gummvywqihph-Nwh-Qvsd-Fa-Vit K (Bariatric Multivitamins) 45 mg iron- 800 mcg-120 mcg Capsule (2 sources) Start: 11-17-2022 take 1 capsule by mouth once daily Tgkzyvxezqbr-Sxu-Gndw-Fa-Vit K (Bariatric Multivitamins) 45 mg iron- 800 mcg-120 mcg Capsule Active 1 CAP PO Daily November 16, 2022 11:00pm Start: 11-17-2022 take 1 capsule by [facility] once daily Akvqafycakto-Dzv-Ktxp-Fa-Vit K (Bariatri c Multivitamins) 45 mg iron- 800 mcg-120 mcg Capsule Active 1 CAP PO Daily November 17, 2022 12:00am nystatin 100 unt/mg topical powder (10 sources) Polyene Antifungal nystatin (Myc ostatin) 285045 UNIT/GM powder Apply 1 application topically in [...] 05-18-2023 Episodic Other aftercare (1 source) 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; Translations: [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] Onset: 04-29-2022 Episodic Other [...] UA Negative Negative - 4(70) +++ mg/dL [facility] Blood, UA Negative Negative - 50 Kranthi/mcL [facility] Clarity, UA Clear [facility] Color, UA Dark Tania [facility] Glucose, UA Negative Negative - 1999(110) ++++ mg/dL [facility] Interpretation and review of laboratory results Abnormal [facility] Ketones, UA Negative Negative - 160(16) ++++ mg/dL [facility] Leukocytes, UA Trace Negative - 500+++ Radha/mcL [facility] Nitrite, UA Negative Negative - Positive [facility] pH, UA 5.5 5 - 9 [facility] Protein, UA Negative Negative - 1999(20) ++++ mg/dL [facility] Spec Grav, UA 1.025 1 - 1.03 [facility] Urobilinogen, UA 0.2 0.2 - 12 mg/dL [facility] MHPT CULT,URINEon 01-23-2024 Interpretation and review of laboratory results [facility] Description .CLEAN CATCH [facility] Culture ESCHERICHIA COLI >100,000 CFU/ML [facility] STREPTOCOCCI, BETA HEMOLYTIC GROUP B 10 to 50,000 CFU/ML [facility] Report Status FINAL 01/23/2024 [facility] MHPT CULT,URINE SUSCEPTIBILITY [facility] MHPT CULT,URINE Organism ESCHERICHIA COLI [facility] Method CROW [facility] MHPT CULT,URINE Ampicillin 16 INTERMEDIATE Intermediate [facility] MHPT CULT,URINE Cefazolin <=4 SUSCEPTIBLE [facility]ceptible [facility] Cefazolin sensitivit y results can be used to predict the effectiveness of oral Susceptible [facility] MHPT CULT,URINE cephalosporins (eg. Cephalexin) in uncomplicated Urinary Tract Infections due Susceptible [facility] MHPT CULT,URINE to E. coli, K. pneumoniae, and P. mirabilis Susceptible [facility] MHPT CULT,URINE Ceftriaxone <=0.25 SUSCEPTIBLE Susceptible [facility] MHPT CULT,URINE Negative [facility]ceptible [facility] Gentamicin <=1 SUSCEPTIBLE [facility]ceptible [facility] Levofloxacin <=0.12 SUSCEPTIBLE [facility]ceptible [facility] Nitrofurantoin <=16 SUSCEPTIBLE [facility]ceptible [facility] Piperacillin/Tazobac ta m <=4 SUSCEPTIBLE Susceptible [facility] Tobramycin <=1 SUSCEPTIBLE Susceptible [facility] Trimethoprim/Sulfa <=20 SUSCEPTIBLE Susceptible [facility] Original Ordering Provider: RICHA DAVENPORT [facility] ALL BASIC METABOLIC PANELon 01-05-2024 Anion gap [Moles/Vol] 11.1 mmol/L [facility] Calcium [Mass/Vol] 9.2 mg/dL 8.5 - 10. 1 mg/dL [facility] Chloride [Moles/Vol] 105 mmol/L 98 - 10 7 mmol/L [facility] CO2 [Moles/Vol] 28.0 mmol/L 21.0 - 32.0 mmol/L [facility] Creatinine [Mass/Vol] 1.08 mg/dL High 0.55 - 1.02 mg/dL [facility] GFR/1.73 sq M.predicted CKD-EPI (S/P/Bld) [Vol rate/Area] >60 60 - PINF [facility] Glucose [Mass/Vol] 92 mg/dL 74 - 106 mg/dL [facility] Interpretation and review of laboratory results Abnormal [facility] Potassium [Moles/Vol] 4.1 mmol/L 3.5 - 5.1 mmol/L [facility] Sodium [Moles/Vol] 140 mmol/L 136 - 145 mmol/L [facility] TBH EGFR-NON AF GUINEAN 51 Low 60 - PINF [facility] Urea nitrogen [Mass/Vol] 17.0 mg/dL 7.0 - 18.0 mg/dL [facility] Urea nitrogen/Creatinine [Mass ratio] 15.7 mg/mg [facility] Amphetamine Screen Ql (U)Ord ered By: Jace Graham on 03-23-2023 Amphetamines Ql (U) Negative Negative [facility] Barbiturates [Presence] in U rine by Screen methodOrdered By: Jace Graham on 03-23-2023 Barbiturates Screen Ql (U) Negative Negative [facility] Benzodiazepines Screen Ql (U )Ordered By: Jace Graham on 03-23-2023 Benzodiazepines Ql (U) Negative Negative [facility] Benzoylecgonine [Presence] i n Urine by [...] 03-23-20 Amphetamine Screen,Urine Negative Normal Negative [facility] Comment on above: Performed By: #### U RDS #### [address] Barbiturate Screen,Urine Negative Normal Negative [facility] Comment on above: Performed By: #### U RDS #### [address] Benzodiazepines Screen,Urine Negative Normal Negative [facility] Comment on above: Performed By: #### U RDS #### [address] Cannabinoid Screen,Urine Negative Normal Negative [facility] Comment on above: Result Comment: Thes e are unconfirmed results and should not be used for legal purposes. Drug Cut-Off Concentration: AMPH 1000 ng/mL ELKIN 200 ng/mL ATIYA 200 ng/mL COCM 300 ng/mL OP 300 ng/mL PCP 25 ng/mL THC 20 ng/mL PERFORMED BY: [place] [address] PATHOLOGIST HARNESS CUTTER AN CURRY M.D. Performed By: #### U RDS #### [address] Cocaine Screen,Urine Negative Normal Negative [facility] Comment on above: Performed By: #### U RDS #### [address] Opiate Screen,Urine Negative Normal Negative [facility] Comment on above: Performed By: #### U RDS #### [address] Phencyclidine Screen,Urine Negative Normal Negative [facility] Comment on above: Performed By: #### U RDS #### [address] Opiates [Presence] in Urine by Screen methodOrdered By: Jace Graham on 03-23-2023 Opiates Screen Ql (U) Negative Negative [facility] Phencyclidine Screen Ql (U)O rdered By: Jace Graham on 03-23-2023 Phencyclidine Ql (U) Negative Negative [facility] Cholesterol [Mass/volume] in Serum or PlasmaOrdered By: Eduardo Monk on 11-18-2022 Cholesterol [Mass/Vol] 159 mg/dL 140-200 [facility] Comment on above: Chol less than [...] in VLDL [Mass/Vol] 28 mg/dL [facility] Serum or plasma high density lipoprotein (HDL) cholesterol measurementOrdered By: Eduardo Monk on 11-18-2022 Cholesterol in HDL [Mass/Vol] 46 mg/dL 23-92 [facility] Comment on above: HDL CHOL ATP-III CLA SSIFICATION Cardiovascular RiskHDL > or equal to 60 mg/dL LOWHDL < 40 mg/dL HIGH Serum or plasma total choles terol/high density lipoprotein (HDL) cholesterol mass ratOrdered By: Eduardo Monk on 11-18-2022 Cholesterol.total/Chol esterol in HDL [Mass ratio] 3.5 {ratio} <5.0 [facility] Thyrotropin [Units/volume] i n Serum or PlasmaOrdered By: Eduardo Monk on 11-18-2022 TSH Qn 2.13 m[IU]/L 0.45-5.33 [facility] Triglyceride [Mass/volume] i n Serum or [...] 07-25-2022 BASO # 0.1 103/ul Normal 0.0-0.1 [facility] Comment on above: Performed By: #### A 1C #### [facility] [address] [address] [address] Bebeto Alvarado Basophils/100 WBC (Bld) 0.6 % Normal 0.2-2.0 [facility] Comment on above: Performed By: #### A 1C #### [facility] [address] [address] [address] Bebeto Alvarado EO # 0.2 103/ul Normal 0.0-0.7 [facility] Comment on above: Performed By: #### A 1C #### [facility] [address] [address] [address] Bebeto Alvarado Eosinophils/100 WBC (Bld) 2.3 % Normal 0.9-7.0 [facility] Comment on above: Performed By: #### A 1C #### [facility] [address] [address] [address] Bebeto Alvarado Erythrocyte distribution width (RBC) [Ratio] 13.8 % Normal 11.0-15.0 [facility] Comment on above: Performed By: #### A 1C #### [facility] [address] [address] [address] Bebeto Alvarado Hematocrit (Bld) [Volume fraction] 41.2 % Normal 36.0-48.0 [facility] Comment on above: Performed By: #### A 1C #### [facility] [address] [place] [address] Dr. Bebeto Alvarado Hemoglobin (Bld) [Mass/Vol] 13.2 g/dL Normal 12.0-16.0 [facility] Comment on above: Performed By: #### A 1C #### [facility] [address] [place] [address] Dr. Bebeto Alvarado IG # 0.03 10e3/ul Normal 0.00-0.03 [facility] Comment on above: Performed By: #### A 1C #### [facility] [address] [place] [address] Dr. Bebeto Alvarado IG % 0.4 % Normal 0.0-0.5 [facility] Comment on above: Performed By: #### A 1C #### [facility] [address] [place] [address] Dr. Bebeto Alvarado LYMPH # 2.1 103/ul Normal 1.2-3.8 [facility] Comment on above: Performed By: #### A 1C #### [facility] [address] [place] [address] Dr. Bebeto Alvarado Lymphocytes/100 WBC (Bld) 25.9 % Normal 20.5-60.0 [facility] Comment on above: Performed By: #### A 1C #### [facility] [address] [place] [address] Dr. Bebeto Alvarado MANUAL DIFF REQ NO Normal [facility] Comment on above: Performed By: #### A 1C #### [facility] [address] [place] [address] Dr. Bebeto Alvarado MCH (RBC) [Entitic mass] 28.0 pg Normal 26.7-34.0 [facility] Comment on above: Performed By: #### A 1C #### [facility] [address] [place] [address] Dr. Bebeto Alvarado MCHC (RBC) [Mass/Vol] 32.0 g/dL Normal 29.9-35.2 [facility] Comment on above: Performed By: #### A 1C #### [facility] [address] [address] [address] Bebeto Alvarado MCV (RBC) [Entitic vol] 87.5 fL Normal 81.0-99.0 [facility] Comment on above: Performed By: #### A 1C #### [facility] [address] [address] [address] Bebeto Alvarado MONO # 0.5 103/ul Normal 0.3-0.8 [facility] Comment on above: Performed By: #### A 1C #### [facility] [address] [address] [address] Bebeto Alvarado Monocytes/100 WBC (Bld) 6.6 % Normal 1.7-12.0 [facility] Comment on above: Performed By: #### A 1C #### [facility] [address] [place] [address] Dr. Bebeto Alvarado NEUT # 5.1 103/ul Normal 1.4-6.5 [facility] Comment on above: Performed By: #### A 1C #### [facility] [address] [place] [address] Dr. Bebeto Alvarado Neutrophils/100 WBC (Bld) 64.2 % Normal 43.0-75.0 [facility] Comment on above: Performed By: #### A 1C #### [facility] [address] [place] [address] Dr. Bebeto Alvarado Platelet mean volume (Bld) [Entitic vol] 11.2 fL Normal 9.5-13.5 [facility] Comment on above: Performed By: #### A 1C #### [facility] [address] [place] [address] Dr. Bebeto Alvarado PLT 252 103/ul Normal 150-450 [facility] Comment on above: Performed By: #### A 1C #### [facility] [address] [place] [address] Dr. Bebeto Alvarado RBC 4.71 106/ul Normal 4.20-5.40 [facility] Comment on above: Performed By: #### A 1C #### [facility] [address] [place] [address] Dr. Bebeto Alvarado WBC 8.0 103/ul Normal 4.0-11.0 [facility] Comment on above: Performed By: #### A 1C #### [facility] [address] [address] [address] Bebeto Alvarado GLYCOHEMOGLOBIN A1Con 2022 ADA RECOMMENDATION SEE BELOW Normal [facility] Comment on above: Result Comment: ADA RECOMMENDED LIMIT 4.0 - 6.0 ADA THERAPEUTIC TARGET < 7.0 ACTION SUGGESTED > 7.0 Performed By: #### A 1C #### [facility] [address] [address] [address] Bebeto Alvarado Glucose [Mass/Vol] 114 mg/dL Normal [facility] Comment on above: Performed By: #### A 1C #### [facility] [address] [place] [address] Dr. Bebeto Alvarado HbA1c (Bld) [Mass fraction] 5.6 % Normal 4.5-6.2 [facility] Comment on above: Performed By: #### A 1C #### [facility] [address] [place] [address] Dr. Bebeto Alvarado IRONon 07-25-2022 Iron [Mass/Vol] 60.0 ug/dL Normal 50.0-170.0 [facility] Comment on above: Performed By: #### V ITB12, IRON #### [facility] [address] [place] [address] Dr. Bebeto Alvarado LIPID PROFILEon 07-25-2022 CHOL-HDL RATIO NORM SEE BELOW Normal [facility] Comment on above: Result Comment: 3.3 - 4.4 LOW RISK 4.4 - 7.1 AVERAGE RISK 7.1 - 11.0 MODERATE RISK >11.0 HIGH RISK Performed By: #### C MP, LIPID #### [facility] [address] [place] [address] Dr. Bebeto Alvarado Cholesterol [Mass/Vol] 144 mg/dL Normal <=200 Th [facility] Comment on above: Performed By: #### C MP, LIPID #### [facility] [address] [place] [address] Dr. Bebeto Alvarado Cholesterol in HDL [Mass/Vol] 39 mg/dL Critically low 40-60 [facility] Comment on above: Performed By: #### C MP, LIPID #### [facility] [address] [address] [address] Bebeto Alvarado Cholesterol in LDL [Mass/Vol] 74.6 mg/dL Normal [facility] Comment on above: Performed By: #### C MP, LIPID #### [facility] [address] [address] [address] Bebeto Alvarado Cholesterol.total/Chol esterol in HDL [Mass ratio] 3.7 {ratio} Normal [facility] Comment on above: Performed By: #### C MP, LIPID #### [facility] [address] [address] [address] Bebeto Alvarado HDL NORMAL > or = 60 mg/dl - LO W CARDIOVASCULAR RISK <40 mg/dl - HIGH CARDIOVASCULAR RISK Normal [facility] Comment on above: Performed By: #### C MP, LIPID #### [facility] [address] [place] [address] Dr. Bebeto Alvarado LDL CALC NORMAL SEE BELOW Normal [facility] Comment on above: Result Comment: <100 mg/dl OPTIMAL 100 - 129 mg/dl NEAR OR ABOVE OPTIMAL 130 - 159 mg/dl BORDERLINE HIGH 160 - 189 mg/dl HIGH >190 mg/dl VERY HIGH Performed By: #### C MP, LIPID #### [facility] [address] [address] [address] Bebeto Alvarado Triglyceride [Mass/Vol] 152 mg/dL Critically high <=150 [facility] Comment on above: Performed By: #### C MP, LIPID #### [facility] [address] [place] [address] Dr. Bebeto Alvarado VLDL CALC 30.4 mg/dL Normal [facility] Comment on above: Performed By: #### C MP, LIPID #### [facility] [address] [address] [address] Bebeto Alvarado PROF 14(COMP METB)on 023 Albumin [Mass/Vol] 3.7 g/dL Normal 3.4-5.0 [facility] Comment on above: Performed By: #### C MP, LIPID #### [facility] [address] [address] [address] Bebeto Alvarado Albumin/Globulin [Mass ratio] 0.9 {ratio} Normal [facility] Comment on above: Performed By: #### C MP, LIPID #### [facility] [address] [address] [address] Bebeto Alvarado ALP [Catalytic activity/Vol] 90 U/L Normal 46-116 [facility] Comment on above: Performed By: #### C MP, LIPID #### [facility] [address] [address] [address] Bebeto Alvarado ALT [Catalytic activity/Vol] 38 U/L Normal 14-59 [facility] Comment on above: Performed By: #### C MP, LIPID #### [facility] [address] [address] [address] Bebeto Alvarado Anion gap [Moles/Vol] 12.1 mmol/L Normal [facility] Comment on above: Performed By: #### C MP, LIPID #### [facility] [address] [address] [address] Bebeto Alvarado AST [Catalytic activity/Vol] 26 U/L Normal 15-37 [facility] Comment on above: Performed By: #### C MP, LIPID #### [facility] [address] [address] [address] Bebeto Alvarado Bilirubin [Mass/Vol] 0.3 mg/dL Normal 0.2-1.0 [facility] Comment on above: Performed By: #### C MP, LIPID #### [facility] [address] [address] [address] Bebeto Alvarado Calcium [Mass/Vol] 9.3 mg/dL Normal 8.5-10.1 [facility] Comment on above: Performed By: #### C MP, LIPID #### [facility] [address] [address] [address] Bebeto Alvarado Chloride [Moles/Vol] 107 mmol/L Normal 98-107 [facility] Comment on above: Performed By: #### C MP, LIPID #### [facility] [address] [address] [address] Bebeto Alvarado CO2 [Moles/Vol] 27.9 mmol/L Normal 21.0-32.0 [facility] Comment on above: Performed By: #### C MP, LIPID #### [facility] [address] [address] [address] Bebeto Alvarado Creatinine [Mass/Vol] 0.95 mg/dL Normal 0.55-1.02 [facility] Comment on above: Performed By: #### C MP, LIPID #### [facility] [address] [address] [address] Bebeto Alvarado EGFR-AF GUINEAN >60 Normal >=60 [facility] Comment on above: Performed By: #### C MP, LIPID #### [facility] [address] [address] [address] Bebeto Alvarado EGFR-NON AF GUINEAN 60 mL/min/1.73m2 Normal >=60 [facility] Comment on above: Performed By: #### C MP, LIPID #### [facility] [address] [address] [address] Bebeto Alvarado Globulin (S) [Mass/Vol] 3.9 g/dL Normal [facility] Comment on above: Performed By: #### C MP, LIPID #### [facility] [address] [address] [address] Bebeto Alvarado Glucose [Mass/Vol] 108 mg/dL Critically high 74-106 [facility] Comment on above: Performed By: #### C MP, LIPID #### [facility] [address] [address] [address] Bebeto Alvarado Potassium [Moles/Vol] 4.0 mmol/L Normal 3.5-5.1 [facility] Comment on above: Performed By: #### C MP, LIPID #### [facility] [address] [address] [address] Bebeto Alvarado Protein [Mass/Vol] 7.6 g/dL Normal 6.4-8.2 [facility] Comment on above: Performed By: #### C MP, LIPID #### [facility] [address] [address] [address] Bebeto Alvarado Sodium [Moles/Vol] 143 mmol/L Normal 136-145 [facility] Comment on above: Performed By: #### C MP, LIPID #### [facility] [address] [place] [address] Dr. Bebeto Alvarado Urea nitrogen [Mass/Vol] 15.0 mg/dL Normal 7.0-18.0 [facility] Comment on above: Performed By: #### C MP, LIPID #### [facility] [address] [place] [address] Dr. Bebeto Alvarado Urea nitrogen/Creatinine [Mass ratio] 15.8 mg/mg Normal [facility] Comment on above: Performed By: #### C MP, LIPID #### [facility] [address] [place] [address] Dr. Bebeto Alvarado UA RANDOM W/MICROSCOPICon BACTERIA NONE SEEN Normal NONE SEEN [facility] Comment on above: Performed By: #### A 1C #### [facility] [address] [place] [address] Dr. Bebeto Alvarado Bilirubin Ql (U) Negative Normal NEGATIVE [facility] Comment on above: Performed By: #### A 1C #### [facility] [address] [place] [address] Dr. Bebeto Alvarado CAST NONE SEEN Normal NONE SEEN [facility] Comment on above: Performed By: #### A 1C #### [facility] [address] [place] [address] Dr. Bebeto Alvarado Clarity (U) CLEAR Normal CLEAR [facility] Comment on above: Performed By: #### A 1C #### [facility] [address] [place] [address] Dr. Bebeto Alvarado Color (U) YELLOW Normal YELLOW [facility] Comment on above: Performed By: #### A 1C #### [facility] [address] [place] [address] Dr. Bebeto Alvarado Crystals LM Nom (Urine sed) NONE SEEN Normal NONE SEEN [facility] Comment on above: Performed By: #### A 1C #### [facility] [address] [address] [address] Bebeto Alvarado Epithelial cells LM Ql (Urine sed) NONE SEEN Normal NONE SEEN /RARE [facility] Comment on above: Performed By: #### A 1C #### [facility] [address] [place] [address] Dr. Bebeto Alvarado Glucose Ql (U) Negative Normal NEGATIVE [facility] Comment on above: Performed By: #### A 1C #### [facility] [address] [place] [address] Dr. Bebeto Alvarado Hemoglobin Ql (U) Negative Normal NEGATIVE [facility] Comment on above: Performed By: #### A 1C #### [facility] [address] [place] [address] Dr. Bebeto Alvarado Ketones Ql (U) Negative Normal NEGATIVE [facility] Comment on above: Performed By: #### A 1C #### [facility] [address] [place] [address] Dr. Bebeto Alvarado LEUKOCYTES Negative Normal NEGATIVE [facility] Comment on above: Performed By: #### A 1C #### [facility] [address] [place] [address] Dr. Bebeto Alvarado MUCOUS NONE SEEN Normal NONE SEEN [facility] Comment on above: Performed By: #### A 1C #### [facility] [address] [place] [address] Dr. Bebeto Alvarado Nitrite Ql (U) Negative Normal NEGATIVE [facility] Comment on above: Performed By: #### A 1C #### [facility] [address] [place] [address] Dr. Bebeto Alvarado pH (U) 5.5 [pH] Normal 5-9 [facility] Comment on above: Performed By: #### A 1C #### [facility] [address] [place] [address] Dr. Bebeto lAvarado RBC NONE SEEN Abnormal 0-2 [facility] Comment on above: Performed By: #### A 1C #### [facility] [address] [place] [address] Dr. Bebeto Alvarado SPEC GRAVITY 1.030 Abnormal 1.005-<=1.02 5 [facility] Comment on above: Performed By: #### A 1C #### [facility] [address] [place] [address] Dr. Bebeto Alvarado UA PROTEIN Negative Normal NEGATIVE/ TRACE [facility] Comment on above: Performed By: #### A 1C #### [facility] [address] [place] [address] Dr. Bebeto Alvarado Urobilinogen Qn (U) 0.2 {Katerin'U}/dL Normal 0.2 - 1. 0 [facility] Comment on above: Performed By: #### A 1C #### [facility] [address] [place] [address] Dr. Bebeto Alvarado WBC NONE SEEN Normal NONE SEEN [facility] Comment on above: Performed By: #### A 1C #### [facility] [address] [place] [address] Dr. Bebeto Alvarado VITAMIN B12on 07-25-2022 Cobalamin (Vitamin B12) [Mass/Vol] 1684.0 pg/mL Critically high 193.0-986.0 [facility] Comment on above: Performed By: #### V ITB12, IRON #### [facility] [address] [place] [address] Dr. Bebeto Alvarado PROF CHEM 8 (BAS METB)on Anion gap [Moles/Vol] 12.2 mmol/L Normal [facility] Comment on above: Performed By: #### B MP #### [facility] [address] [place] [address] Dr. Bebeto Alvarado Calcium [Mass/Vol] 8.9 mg/dL Normal 8.5-10.1 [facility] Comment on above: Performed By: #### B MP #### [facility] [address] [place] [address] Dr. Bebeto Alvarado Chloride [Moles/Vol] 105 mmol/L Normal 98-107 [facility] Comment on above: Performed By: #### B MP #### [facility] [address] [address] [address] Bebeto Alvarado CO2 [Moles/Vol] 29.6 mmol/L Normal 21.0-32.0 [facility] Comment on above: Performed By: #### B MP #### [facility] [address] [address] [address] Bebeto Alvarado Creatinine [Mass/Vol] 0.95 mg/dL Normal 0.55-1.02 [facility] Comment on above: Performed By: #### B MP #### [facility] [address] [address] [address] Bebeto Alvarado EGFR-AF GUINEAN >60 Normal >=60 [facility] Comment on above: Performed By: #### B MP #### [facility] [address] [address] [address] Bebeto Alvarado EGFR-NON AF GUINEAN 60 mL/min/1.73m2 Normal >=60 [facility] Comment on above: Performed By: #### B MP #### [facility] [address] [address] [address] Bebeto Alvarado Glucose [Mass/Vol] 101 mg/dL Normal 74-106 [facility] Comment on above: Performed By: #### B MP #### [facility] [address] [address] [address] Bebeto Alvarado Potassium [Moles/Vol] 3.8 mmol/L Normal 3.5-5.1 [facility] Comment on above: Performed By: #### B MP #### [facility] [address] [address] [address] Bebeto Alvarado Sodium [Moles/Vol] 143 mmol/L Normal 136-145 [facility] Comment on above: Performed By: #### B MP #### [facility] [address] [address] [address] Bebeto Alvarado Urea nitrogen [Mass/Vol] 16.0 mg/dL Normal 7.0-18.0 [facility] Comment on above: Performed By: #### B MP #### [facility] [address] [place] [address] Dr. Bebeto Alvarado Urea nitrogen/Creatinine [Mass ratio] 16.8 mg/mg Normal [facility] Comment on above: Performed By: #### B MP #### [facility] [address] [place] [address] Dr. Bebeto Alvarado CBC AUTO DIFFon 11-21-2021 BASO # 0.1 103/ul Normal 0.0-0.1 [facility] Comment on above: Performed By: #### A 1C #### [facility] [address] [place] [address] Dr. Bebeto Alvarado Basophils/100 WBC (Bld) 1.0 % Normal 0.2-2.0 [facility] Comment on above: Performed By: #### A 1C #### [facility] [address] [place] [address] Dr. Bebeto Alvarado EO # 0.2 103/ul Normal 0.0-0.7 [facility] Comment on above: Performed By: #### A 1C #### [facility] [address] [place] [address] Dr. Bebeto Alvarado Eosinophils/100 WBC (Bld) 3.3 % Normal 0.9-7.0 [facility] Comment on above: Performed By: #### A 1C #### [facility] [address] [place] [address] Dr. Bebeto Alvarado Erythrocyte distribution width (RBC) [Ratio] 13.8 % Normal 11.0-15.0 [facility] Comment on above: Performed By: #### A 1C #### [facility] [address] [place] [address] Dr. Bebeto Alvarado Hematocrit (Bld) [Volume fraction] 38.8 % Normal 36.0-48.0 [facility] Comment on above: Performed By: #### A 1C #### [facility] [address] [place] [address] Dr. Bebeto Alvarado Hemoglobin (Bld) [Mass/Vol] 12.5 g/dL Normal 12.0-16.0 [facility] Comment on above: Performed By: #### A 1C #### [facility] [address] [place] [address] Dr. Bebeto Alvarado IG # 0.02 10e3/ul Normal 0.00-0.03 [facility] Comment on above: Performed By: #### A 1C #### [facility] [address] [place] [address] Dr. Bebeto Alvarado IG % 0.3 % Normal 0.0-0.5 [facility] Comment on above: Performed By: #### A 1C #### [facility] [address] [place] [address] Dr. Bebeto Alvarado LYMPH # 1.9 103/ul Normal 1.2-3.8 [facility] Comment on above: Performed By: #### A 1C #### [facility] [address] [place] [address] Dr. Bebeto Alvarado Lymphocytes/100 WBC (Bld) 29.6 % Normal 20.5-60.0 [facility] Comment on above: Performed By: #### A 1C #### [facility] [address] [place] [address] Dr. Bebeto Alvarado MANUAL DIFF REQ NO Normal [facility] Comment on above: Performed By: #### A 1C #### [facility] [address] [place] [address] Dr. Bebeto Alvarado MCH (RBC) [Entitic mass] 28.0 pg Normal 26.7-34.0 [facility] Comment on above: Performed By: #### A 1C #### [facility] [address] [place] [address] Dr. Bebeto Alvarado MCHC (RBC) [Mass/Vol] 32.2 g/dL Normal 29.9-35.2 [facility] Comment on above: Performed By: #### A 1C #### [facility] [address] [place] [address] Dr. Bebeto Alvarado MCV (RBC) [Entitic vol] 86.8 fL Normal 81.0-99.0 [facility] Comment on above: Performed By: #### A 1C #### [facility] [address] [place] [address] Dr. Bebeto Alvarado MONO # 0.4 103/ul Normal 0.3-0.8 [facility] Comment on above: Performed By: #### A 1C #### [facility] [address] [place] [address] Dr. Bebeto Alvarado Monocytes/100 WBC (Bld) 5.7 % Normal 1.7-12.0 [facility] Comment on above: Performed By: #### A 1C #### [facility] [address] [place] [address] Dr. Bebeto Alvarado NEUT # 3.8 103/ul Normal 1.4-6.5 [facility] Comment on above: Performed By: #### A 1C #### [facility] [address] [place] [address] Dr. Bebeto Alvarado Neutrophils/100 WBC (Bld) 60.1 % Normal 43.0-75.0 [facility] Comment on above: Performed By: #### A 1C #### [facility] [address] [place] [address] Dr. Bebeto Alvarado Platelet mean volume (Bld) [Entitic vol] 11.0 fL Normal 9.5-13.5 [facility] Comment on above: Performed By: #### A 1C #### [facility] [address] [place] [address] Dr. Bebeto Alvarado PLT 264 103/ul Normal 150-450 [facility] Comment on above: Performed By: #### A 1C #### [facility] [address] [place] [address] Dr. Bebeto Alvarado RBC 4.47 106/ul Normal 4.20-5.40 [facility] Comment on above: Performed By: #### A 1C #### [facility] [address] [place] [address] Dr. Bebeto Alvarado WBC 6.3 103/ul Normal 4.0-11.0 [facility] Comment on above: Performed By: #### A 1C #### [facility] [address] [place] [address] Dr. Bebeto Alvarado GLYCOHEMOGLOBIN A1Con 2021 ADA RECOMMENDATION SEE BELOW Normal [facility] Comment on above: Result Comment: ADA RECOMMENDED LIMIT 4.0 - 6.0 ADA THERAPEUTIC TARGET < 7.0 ACTION SUGGESTED > 7.0 Performed By: #### A 1C #### [facility] [address] [place] [address] Dr. Bebeot Alvarado Glucose [Mass/Vol] 105 mg/dL Normal [facility] Comment on above: Performed By: #### A 1C #### [facility] [address] [place] [address] Dr. Bebeto Alvarado HbA1c (Bld) [Mass fraction] 5.3 % Normal 4.5-6.2 [facility] Comment on above: Performed By: #### A 1C #### [facility] [address] [place] [address] Dr. Bebeto Alvarado IRONon 11-21-2021 Iron [Mass/Vol] 59.0 ug/dL Normal 50.0-170.0 [facility] Comment on above: Performed By: #### A 1C #### [facility] [address] [place] [address] Dr. Bebeto Alvarado LIPID PROFILEon 11-21-2021 CHOL-HDL RATIO NORM SEE BELOW Normal [facility] Comment on above: Result Comment: 3.3 - 4.4 LOW RISK 4.4 - 7.1 AVERAGE RISK 7.1 - 11.0 MODERATE RISK >11.0 HIGH RISK Performed By: #### C MP, LIPID #### [facility] [address] [place] [address] Dr. Bebeto Alvarado Cholesterol [Mass/Vol] 139 mg/dL Normal <=200 Th [facility] Comment on above: Performed By: #### C MP, LIPID #### [facility] [address] [place] [address] Dr. Bebeto Alvarado Cholesterol in HDL [Mass/Vol] 35 mg/dL Critically low 40-60 [facility] Comment on above: Performed By: #### C MP, LIPID #### [facility] [address] [place] [address] Dr. Bebeto Alvarado Cholesterol in LDL [Mass/Vol] 69.6 mg/dL Normal [facility] Comment on above: Performed By: #### C MP, LIPID #### [facility] [address] [address] [address] Bebeto Alvarado Cholesterol.total/Chol esterol in HDL [Mass ratio] 4.0 {ratio} Normal [facility] Comment on above: Performed By: #### C MP, LIPID #### [facility] [address] [address] [address] Bebeto Alvarado HDL NORMAL > or = 60 mg/dl - LO W CARDIOVASCULAR RISK <40 mg/dl - HIGH CARDIOVASCULAR RISK Normal [facility] Comment on above: Performed By: #### C MP, LIPID #### [facility] [address] [address] [address] Bebeto Alvarado LDL CALC NORMAL SEE BELOW Normal [facility] Comment on above: Result Comment: <100 mg/dl OPTIMAL 100 - 129 mg/dl NEAR OR ABOVE OPTIMAL 130 - 159 mg/dl BORDERLINE HIGH 160 - 189 mg/dl HIGH >190 mg/dl VERY HIGH Performed By: #### C MP, LIPID #### [facility] [address] [address] [address] Bebeto Alvarado Triglyceride [Mass/Vol] 172 mg/dL Critically high <=150 [facility] Comment on above: Performed By: #### C MP, LIPID #### [facility] [address] [address] [address] Bebeto Alvarado VLDL CALC 34.4 mg/dL Normal [facility] Comment on above: Performed By: #### C MP, LIPID #### [facility] [address] [address] [address] Bebeto Alvarado PROF 14(COMP METB)on 022 Albumin [Mass/Vol] 3.8 g/dL Normal 3.4-5.0 [facility] Comment on above: Performed By: #### C MP, LIPID #### [facility] [address] [address] [address] Bebeto Alvarado Albumin/Globulin [Mass ratio] 1.1 {ratio} Normal [facility] Comment on above: Performed By: #### C MP, LIPID #### [facility] [address] [address] [address] Bebeto Alvarado ALP [Catalytic activity/Vol] 96 U/L Normal 46-116 [facility] Comment on above: Performed By: #### C MP, LIPID #### [facility] [address] [address] [address] Bebeto Alvarado ALT [Catalytic activity/Vol] 25 U/L Normal 14-59 [facility] Comment on above: Performed By: #### C MP, LIPID #### [facility] [address] [address] [address] Bebeto Alvarado Anion gap [Moles/Vol] 11.8 mmol/L Normal [facility] Comment on above: Performed By: #### C MP, LIPID #### [facility] [address] [address] [address] Bebeto Alvarado AST [Catalytic activity/Vol] 20 U/L Normal 15-37 [facility] Comment on above: Performed By: #### C MP, LIPID #### [facility] [address] [address] [address] Bebeto Alvarado Bilirubin [Mass/Vol] 0.4 mg/dL Normal 0.2-1.0 [facility] Comment on above: Performed By: #### C MP, LIPID #### [facility] [facility] [address] [address] [address] Bebeto Alvarado Calcium [Mass/Vol] 8.8 mg/dL Normal 8.5-10.1 [facility] Comment on above: Performed By: #### C MP, LIPID #### [facility] [address] [address] [address] Bebeto Alvarado Chloride [Moles/Vol] 106 mmol/L Normal 98-107 [facility] Comment on above: Performed By: #### C MP, LIPID #### [facility] [address] [address] [address] Bebeto Alvarado CO2 [Moles/Vol] 27.0 mmol/L Normal 21.0-32.0 [facility] Comment on above: Performed By: #### C MP, LIPID #### [facility] [address] [address] [address] Bebeto Alvarado Creatinine [Mass/Vol] 0.97 mg/dL Normal 0.55-1.02 [facility] Comment on above: Performed By: #### C MP, LIPID #### [facility] [address] [address] [address] Bebeto Alvarado EGFR-AF GUINEAN >60 Normal >=60 [facility] Comment on above: Performed By: #### C MP, LIPID #### [facility] [address] [address] [address] Bebeto Alvarado EGFR-NON AF GUINEAN 59 mL/min/1.73m2 Critically low >=60 [facility] Comment on above: Performed By: #### C MP, LIPID #### [facility] [address] [address] [address] Bebeto Alvarado Globulin (S) [Mass/Vol] 3.4 g/dL Normal [facility] Comment on above: Performed By: #### C MP, LIPID #### [facility] [address] [address] [address] Bebeto Alvarado Glucose [Mass/Vol] 103 mg/dL Normal 74-106 [facility] Comment on above: Performed By: #### C MP, LIPID #### [facility] [address] [address] [address] Bebeto Alvarado Potassium [Moles/Vol] 3.8 mmol/L Normal 3.5-5.1 [facility] Comment on above: Performed By: #### C MP, LIPID #### [facility] [address] [address] [address] Bebeto Alvarado Protein [Mass/Vol] 7.2 g/dL Normal 6.4-8.2 [facility] Comment on above: Performed By: #### C MP, LIPID #### [facility] [address] [address] [address] Bebeto Alvarado Sodium [Moles/Vol] 141 mmol/L Normal 136-145 [facility] Comment on above: Performed By: #### C MP, LIPID #### [facility] [address] [address] [address] Bebeto Alvarado Urea nitrogen [Mass/Vol] 11.0 mg/dL Normal 7.0-18.0 [facility] Comment on above: Performed By: #### C MP, LIPID #### [facility] [address] [place] [address] Dr. Bebeto Alvarado Urea nitrogen/Creatinine [Mass ratio] 11.3 mg/mg Normal [facility] Comment on above: Performed By: #### C MP, LIPID #### [facility] [address] [address] [address] Bebeto Alvarado URIC ACID SERUMon 11-21-2021 Urate [Mass/Vol] 7.3 mg/dL Critically high 2.6-6.0 [facility] Comment on above: Performed By: #### A 1C #### [facility] [address] [place] [address] Dr. Bebeto Alvarado VITAMIN B12on 11-21-2021 Cobalamin (Vitamin B12) [Mass/Vol] 2123.0 pg/mL Critically high 193.0-986.0 [facility] Comment on above: Performed By: #### A 1C #### [facility] [address] [place] [address] Dr. Bebeto Alvarado Physician Referralon 022 Physician Referral [phone] [id number] Normal [facility] KNEE RIGHT 1 OR 2 [facility] KNEE RIGHT 1 OR 2 VWS [facility] Department of Radiology [address] [place] [id number] ======== Patient Name: MICHELLE BE : [...] Electronically signed by:Debra Del Cid. Transcribed by: [email or web address], User Resident: Electronically Signed by: DEBRA DEL CID @ 02/08/2019 11:16 AM Normal [facility] Comment on above: Order Comment: , Mabel ws (X-RAY, KNEE): Radiologic Protocol , Weight Bearing?: N , With or Without Brace/Cast/Collar: With , Views (X-RAY, KNEE): Radiologic Protocol , Weight Bearing?: N , With or Without Brace/Cast/Collar: With , , , Ordering Provider - AHSAN BINGHAM PA-C , KNEE RIGHT 1 OR 2 VWSon KNEE RIGHT 1 OR 2 VWS [facility] Department of Radiology [address] [place] [address] ======== Patient Name: MICHELLE BE : 1960 Sex: F Age: Race: White Pt. Location: Patient Status: Ordered Date: 12/07/2018 10:20:00 AM Completed Date: 12/07/2018 10:20 AM Requesting Provider: AHSAN BINGHAM Attending Provider: Report Copy To: Signs & Symptoms: S82.001A Unsp fracture of right patella, init for clos fx I10 History: Clyman Comments: , , , Ordering Provider - [...] complications. Electronically signed by:Tomasz Stoll. Transcribed by: [email or web address], User Resident: Electronically Signed by: TOMASZ STOLL @ 12/07/2018 11:14 AM Normal [facility] Comment on above: Order Comment: , Rossie ws (X-RAY, KNEE): Radiologic Protocol , Weight Bearing?: N , With or Without Brace/Cast/Collar: With , Views (X-RAY, KNEE): Radiologic Protocol , Weight Bearing?: N , With or Without Brace/Cast/Collar: With , , , Ordering Provider - AHSAN BINGHAM PA-C , KNEE RIGHT 1 OR 2 [facility] KNEE RIGHT 1 OR 2 [facility] Department of Radiology [address] [place] [id number] ======== Patient Name: MICHELLE BE : 1960 Sex: F Age: Race: White Pt. 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 Transcribed by: [email or web address], User Resident: Electronically Signed by: ANUP ELLISON @ 10/06/2018 02:48 PM Normal [facility] Comment on above: Order Comment: , Rossie ws (X-RAY, KNEE): Radiologic Protocol , Weight Bearing?: N , With or Without Brace/Cast/Collar: With , Views (X-RAY, KNEE): Radiologic Protocol , Weight Bearing?: N , With or Without Brace/Cast/Collar: With , , , Ordering Provider - AHSAN BINGHAM PA-C , KNEE RIGHT 1 OR 2 [facility] 08-05 KNEE RIGHT 1 OR 2 [facility] Department of Radiology [address] [place] [phone] ======== Patient Name: MICHELLE BE : 1960 Sex: F Age: Race: White Pt. Location: Patient Status: Ordered Date: 08/26/2018 2:30:00 PM Completed Date: 08/26/2018 02:54 PM Requesting Provider: AHSAN BINGHAM Attending Provider: Report Copy To: Signs & Symptoms: S82.001A Unsp fracture of right patella, init for clos fx I10 History: Clyman Comments: , , , Ordering Provider - AHSAN BINGHAM PA-C , Exam: KNEE RIGHT 1 OR 2 [facility] ======== KNEE RIGHT 1 OR 2 [facility] 08/26/2018 2:54 PM EDT SIGNS AND SYMPTOMS: [...] effusion Electronically signed by:Anup Ellison. Transcribed by: [email or web address], User Resident: Electronically Signed by: ANUP ELLISON @ 08/26/2018 04:56 PM Normal [facility] Comment on above: Order Comment: , Vie ws (X-RAY, KNEE): Radiologic Protocol , Weight Bearing?: N , With or Without Brace/Cast/Collar: With , Views (X-RAY, KNEE): Radiologic Protocol , Weight Bearing?: N , With or Without Brace/Cast/Collar: With , , , Ordering Provider - AHSAN BINGHAM PA-C , KNEE RIGHT 1 OR 2 [facility] 07-06 KNEE RIGHT 1 OR 2 [facility] Department of Radiology [address] [place] [phone] ======== Patient Name: MICHELLE BE : [...] , Exam: KNEE RIGHT 1 OR 2 [facility] ======== KNEE RIGHT 1 OR 2 [facility] 07/29/2018 2:12 PM EDT SIGNS AND SYMPTOMS: [...] compartment Electronically signed by:Anup Ellison. Transcribed by: [email or web address], User Resident: Electronically Signed by: ANUP ELLISON @ 07/29/2018 03:41 PM Normal [facility] Comment on above: Order Comment: , Mabel ws (X-RAY, KNEE): Radiologic Protocol , Weight Bearing?: N , With or Without Brace/Cast/Collar: With , Views (X-RAY, KNEE): Radiologic Protocol , Weight Bearing?: N , With or Without Brace/Cast/Collar: With , , , Ordering Provider - AHSAN BINGHAM PA-C , KNEE RIGHT 3 [facility] 9 KNEE RIGHT 3 [facility] Department of Radiology [address] [place] [phone] ======== Patient Name: MICHELLE BE : 1960 Sex: F Age: Race: White Pt. Location: 84 Patient Status: Ordered Date: 07/15/2018 8:45:00 AM Completed Date: 07/15/2018 08:47 AM Requesting Provider: AHSAN BINGHAM Attending Provider: Report Copy To: Signs & Symptoms: S82.001A Unsp fracture of right patella, init for clos fx I10 History: Clyman Comments: , , , Ordering Provider - [...] knee Electronically signed by:Anup Ellison. Transcribed by: [email or web address], User Resident: Electronically Signed by: ANUP ELLISON @ 07/15/2018 03:31 PM Normal [facility] Comment on above: Order Comment: , Mabel ws (X-RAY, KNEE): Radiologic Protocol , Weight Bearing?: N , With or Without Brace/Cast/Collar: With , Views (X-RAY, KNEE): Radiologic Protocol , Weight Bearing?: N , With or Without Brace/Cast/Collar: With , , , Ordering Provider - AHSAN BINGHAM PA-C , Operative Reporton 9 Operative Report MR#: [id number] [facility] Pt. Name: Michelle Be Room #: [...] Duarte MD Date Trans: 07/03/2018 04:28 A/terry [id number] [place] [facility] *ANAEROBIC CULTUREon 07-02- 019 *ANAEROBIC CULTURE Clinical Report: (D) Specimen/Source: SWAB/RT KNEE Collected: 07/02/2018 13:53 Status: Final Last Updated: 07/07/2018 08:02 CULT RES (Final) No Anaerobes Isolated 5 Days Normal [facility] Comment on above: Performed By: #### 3 0312 #### [address] *WOUND CULTUREon 07-02-2018 *WOUND CULTURE Clinical Report: (D) Specimen/Source: WOUND/INTRAOP SPEC Collected: 07/02/2018 13:53 Status: Final Last Updated: 07/07/2018 10:13 (1) #1 RT KNEE GRAM (Final) Rare Polys No Bacteria Seen CULT RES (Final) No Growth Day 5 Normal [facility] Comment on above: Order Comment: #1 RT KNEE Performed By: #### 3 0343 #### [address] KNEE RIGHT 1 OR 2 [facility] 06-05 KNEE RIGHT 1 OR 2 S [facility] Department of Radiology [address] [place] [phone] ======== Patient Name: MICHELLE BE : [...] PATELLA Exam: KNEE RIGHT 1 OR 2 [facility] ======== KNEE RIGHT 1 OR 2 VWS [...] Electronically signed by:Debra Del Cid. Transcribed by: [email or web address], User Resident: Electronically Signed by: DEBRA DEL CID @ 07/02/2018 02:03 PM Normal [facility] Comment on above: Order Comment: ORIF VS PERCUTANEOUS FIXATION RIGHT PATELLA POC GLUCOSE LABon 07-02-2018 Glucose [Mass/Vol] 108 mg/dL High 70-100 [facility] Comment on above: Performed By: #### 8 5499 #### [facility] [address] [place] [address], [facility] APTTon 06-30-2018 aPTT Coag (Bld) [Time] 30.6 s Normal 25.0-35.0 [facility] Comment on above: Result Comment: ALL [...] THIS PURPOSE. Performed By: #### 5 6101, 64859 #### [facility] [address] [place] [address], [facility] BASIC METABOLIC PANELon 06-05 Calcium [Mass/Vol] 9.7 mg/dL Normal 8.6-10.3 [facility] Comment on above: Performed By: #### 0 0071 #### [facility] [address] [place] [address], [place] Chloride [Moles/Vol] 102 mmol/L Normal 98-107 [facility] Comment on above: Performed By: #### 0 0071 #### [facility] [address] [place] [address], [place] CO2 [Moles/Vol] 28 mmol/L Normal 21-31 [facility] Comment on above: Performed By: #### 0 0071 #### [facility] [address] [place] [address], [place] Creatinine [Mass/Vol] 1.20 mg/dL Normal 0.60-1.20 [facility] Comment on above: Performed By: #### 0 0071 #### [facility] [address] [place] [address], [place] GFR/1.73 sq M predicted among blacks MDRD (S/P/Bld) [Vol rate/Area] 56 ml/min/1.73sq m Abnormal >60 [facility] Comment on above: Performed By: #### 0 0071 #### [facility] [address] [place] [address], [place] GFR/1.73 sq M predicted among non-blacks MDRD (S/P/Bld) [Vol rate/Area] 47 ml/min/1.73sq m Abnormal >60 [facility] Comment on above: Performed By: #### 0 0071 #### [facility] [address] [place] [address], [place] Glucose [Mass/Vol] 97 mg/dL Normal 70-100 [facility] Comment on above: Performed By: #### 0 0071 #### [facility] [address] [place] [address], [place] Potassium [Moles/Vol] 4.1 mmol/L Normal 3.5-5.1 [facility] Comment on above: Performed By: #### 0 0071 #### [facility] [address] Sodium [Moles/Vol] 137 mmol/L Normal 136-145 [facility] Comment on above: Performed By: #### 0 1 #### [facility] [address] Urea nitrogen [Mass/Vol] 19 mg/dL Normal 7-25 [facility] Comment on above: Performed By: #### 0 1 #### [facility] [address] CBC W/DIFFon 06-30-2018 ABS BASOPHILS 0.1 10*3/uL Normal 0.0-0.2 [facility] Comment on above: Performed By: #### 5 102 #### [facility] [address] ABS IMM GRANS 0.0 10*3/uL Normal 0.0-0.2 [facility] Comment on above: Performed By: #### 5 102 #### [facility] [address] ABS NEUTROPHILS 6.4 10*3/uL Normal 1.6-7.6 [facility] Comment on above: Performed By: #### 5 102 #### [facility] [address] Basophils/100 WBC (Bld) 0.7 % Normal 0.0-1.0 [facility] Comment on above: Performed By: #### 5 102 #### [facility] [address] Eosinophils (Bld) [#/Vol] 0.2 10*3/uL Normal 0.0-0.5 [facility] Comment on above: Performed By: #### 5 102 #### [facility] [address] [place] [address], [facility] Eosinophils/100 WBC (Bld) 1.5 % Normal 0.0-6.0 [facility] Comment on above: Performed By: #### 5 0103 #### [facility] [address] [place] [address], [facility] Erythrocyte distribution width (RBC) [Ratio] 14.4 % Normal 11.5-15.0 [facility] Comment on above: Performed By: #### 5 0103 #### [facility] [address] [place] [address], [facility] Hematocrit (Bld) [Volume fraction] 40.6 % Normal 36.0-45.0 [facility] Comment on above: Performed By: #### 5 0103 #### [facility] [address] [place] [address], [facility] Hemoglobin (Bld) [Mass/Vol] 13.3 g/dL Normal 12.0-15.0 [facility] Comment on above: Performed By: #### 5 0103 #### [facility] [address] [facility] [place] [address], [facility] IMMATURE GRANS 0.4 % Normal 0.0-1.0 [facility] Comment on above: Performed By: #### 5 0103 #### [facility] [address] [facility] [place] [address], [facility] Lymphocytes (Bld) [#/Vol] 2.6 10*3/uL Normal 1.2-4.0 [facility] Comment on above: Performed By: #### 5 0103 #### [facility] [address] [facility] [place] [address], [facility] Lymphocytes/100 WBC (Bld) 26.5 % Normal 20.0-45.0 [facility] Comment on above: Performed By: #### 5 0103 #### [facility] [address] MCH (RBC) [Entitic mass] 27.4 pg Normal 27.0-33.0 [facility] Comment on above: Performed By: #### 5 0103 #### [facility] [address] MCHC (RBC) [Mass/Vol] 32.8 g/dL Normal 32.0-35.0 [facility] Comment on above: Performed By: #### 5 0103 #### [facility] [address] MCV (RBC) [Entitic vol] 83.5 fL Normal 82.0-98.0 [facility] Comment on above: Performed By: #### 5 0103 #### [facility] [address] Monocytes (Bld) [#/Vol] 0.5 10*3/uL Normal 0.1-1.0 [facility] Comment on above: Performed By: #### 5 0103 #### [facility] [address] MONOS 5.0 % Normal 5.0-12.0 [facility] Comment on above: Performed By: #### 5 0103 #### [facility] [address] Neutrophils/100 WBC (Bld) 65.9 % Normal 40.0-72.0 [facility] Comment on above: Performed By: #### 5 0103 #### [facility] [address] Nucleated RBC/100 WBC (Bld) [Ratio] 0 % Normal 0-0 [facility] Comment on above: Performed By: #### 5 0103 #### [facility] [address] [place] [address], [facility] PLAT CNT 290 10*3/uL Normal 150-400 [facility] Comment on above: Performed By: #### 5 0103 #### [place] [address], [facility] RBC (Bld) [#/Vol] 4.86 10*6/uL Normal 3.80-5.00 [facility] Comment on above: Performed By: #### 5 0103 #### [place] [address], [facility] WBC (Bld) [#/Vol] 9.68 10*3/uL Normal 4.00-10.60 [facility] Comment on above: Performed By: #### 5 0103 #### [address] KNEE RIGHT 1 OR 2 VWSon 06-05 KNEE RIGHT 1 OR 2 VWS [facility] Department of Radiology [address] [place] [phone] ======== Patient Name: MICHELLE BE : [...] Electronically signed by:Debra Del Cid. Transcribed by: [email or web address], User Resident: Electronically Signed by: DEBRA DEL CID @ 06/30/2018 11:52 AM Normal [facility] Comment on above: Order Comment: , Mabel ws (X-RAY, KNEE): Radiologic Protocol , Weight Bearing?: N , With or Without Brace/Cast/Collar: With , Views (X-RAY, KNEE): Radiologic Protocol , Weight Bearing?: N , With or Without Brace/Cast/Collar: With , , , Ordering Provider - AHSAN BINGHAM PA-C , PROTHROMBIN TIMEon 03-27-201 9 INR Coag (PPP) [Relative time] 0.98 {INR} Normal 0.91-1.16 [facility] Comment on above: Result Comment: ACCC P [...] CHEST 1995;108:231S-246S. Performed By: #### 5 6101, [id number] #### [address] PT Coag (PPP) [Time] 13.0 s Normal 12.3-14.8 [facility] Comment on above: Result Comment: ALL RESULTS MUST BE INTERPRETED WITH RESPECT TO BLOOD DRAWING ARTIFACT OR DILUTION ERROR OF ANTICOAGULANT AT THE TIME OF SAMPLING. Performed By: #### 5 6101, [address] #### [address] KNEE RIGHT 3 VWSon 9 KNEE RIGHT 3 VWS [facility] Department of Radiology [address] [place] [phone] ======== Patient Name: MICHELLE BE : 1960 Sex: F Age: Race: White Pt. Location: 84 Patient Status: O Ordered Date: 06/15/2018 1:35:00 PM Completed Date: 06/15/2018 01:34 PM Requesting Provider: AMPARO ZHANG Attending Provider: AMPARO ZHANG Report Copy To: ADELAIDA CARRION Signs & Symptoms: M17.11 Unilateral primary osteoarthritis, right knee I10 History: Clyman Comments: , Weight Bearing?: Y , Weight Bearing?: Y , , , Ordering Provider - AMPARO ZHANG PA-C , Exam: KNEE RIGHT 3 [facility] ======== KNEE RIGHT 3 S 06/15/2018 1:34 [...] effusion Electronically signed by:Anup Ellison. Transcribed by: [email or web address], User Resident: Electronically Signed by: ANUP ELLISON @ 06/15/2018 03:50 PM Normal [facility] Comment on above: Order Comment: , Isaiah ght Bearing?: Y , Weight Bearing?: Y , , , Ordering Provider - AMPARO ZHANG PA-C , Vital Signs Date Time Vital Sign Value Performing Clinician Facility 01-28-2024 13:46-0400 Body height 162.6 cm Adelaida Kelsiez [employer] Work Phone: [facility] 01-28-2024 13:46-0400 Body mass index (BMI) [Ratio] 48.99 kg/m2 Adelaida Aichholz [employer] Work Phone: [facility] 01-28-2024 13:46-0400 Body temperature 98.71 [degF] Adelaida Aichholz [employer] Work Phone: [facility] 01-28-2024 13:46-0400 Body weight 129.46 kg Adelaida Aichholz [employer] Work Phone: [facility] 01-28-2024 13:46-0400 Diastolic blood pressure 78 mm[Hg] Adelaida Aichholz [employer] Work Phone: [facility] 01-28-2024 13:46-0400 Heart rate 81 /min Adelaida Aichholz [employer] Work Phone: [facility] 01-28-2024 13:46-0400 Respiratory rate 18 /min Adelaida Aichholz [employer] Work Phone: [facility] 01-28-2024 13:46-0400 SaO2% (BldA) [Mass fraction] 99 % Adelaida Aichholz [employer] Work Phone: [facility] 01-28-2024 13:46-0400 Systolic blood pressure 110 mm[Hg] Adelaida Aichholz [employer] Work Phone: [facility] 05-18-2023 16:30-0500 Body height 162.6 cm Daelaida Aichholz [employer] Work Phone: [facility] 05-18-2023 16:30-0500 Body mass index (BMI) [Ratio] 47.89 kg/m2 Adelaida Aichholz [employer] Work Phone: [facility] 05-18-2023 16:30-0500 Body temperature 97.3 [degF] Adelaida Aichholz [employer] Work Phone: [facility] 05-18-2023 16:30-0500 Body weight 126.55 kg Adelaida Aichholz [employer] Work Phone: [facility] 05-18-2023 16:30-0500 Diastolic blood pressure 80 mm[Hg] Adelaida Aichholz [employer] Work Phone: [facility] 05-18-2023 16:30-0500 Heart rate 76 /min Adelaida Aichholz [employer] Work Phone: [facility] 05-18-2023 16:30-0500 Respiratory rate 19 /min Adelaida Aichholz [employer] Work Phone: [facility] 05-18-2023 16:30-0500 SaO2% (BldA) [Mass fraction] 97 % Adelaida Aichholz [employer] Work Phone: [facility] 05-18-2023 16:30-0500 Systolic blood pressure 134 mm[Hg] Adelaida Aichholz [employer] Work Phone: [facility] 03-23-2023 12:10-0500 Diastolic blood pressure 98 mm[Hg] Adelaida Aichholz Work Phone: [facility] 03-23-2023 12:10-0500 Heart rate 76 /min Adelaida Aichholz Work Phone: [facility] 03-23-2023 12:10-0500 Respiratory rate 18 /min Adelaida Aichholz Work Phone: [facility] 03-23-2023 12:10-0500 SaO2% (BldA) [Mass fraction] 99 % Adelaida Carrion Work Phone: [facility] 03-23-2023 12:10-0500 Systolic blood pressure 162 mm[Hg] Adelaida Carrion Work Phone: [facility] 03-23-2023 10:53-0500 Body height 162.56 cm Adelaida Carrion Work Phone: [facility] 03-23-2023 10:53-0500 Body weight 125.64 kg Adelaida Carrion Work Phone: [facility] 12-19-2022 14:55-0400 Body height 162.56 cm Rosemary Marita Other [email or web address] Other 12-19-2022 14:55-0400 Body mass index (BMI) [Ratio] 47.85 kg/m2 Rosemary Marita Other [email or web address] Other 12-19-2022 14:55-0400 Body temperature 97.8 [degF] Rosemary Marita Other [email or web address] Other 12-19-2022 14:55-0400 Body weight 126.46 kg Rosemary Marita Other [email or web address] Other 12-19-2022 14:55-0400 Respiratory rate 20 /min Rosemary Marita Other [email or web address] Other 12-19-2022 14:55-0400 SaO2% (BldA) [Mass fraction] 95 % Rosemary Marita Other [email or web address] Other 11-20-2022 13:12-0400 Body temperature 97.7 [degF] Adelaida Merryholz Work Phone: [facility] 11-20-2022 13:12-0400 SaO2% [...] height 162.56 cm Adelaida Yinghholz Work Phone: [facility] 11-17-2022 09:00-0400 Body weight 122.92 kg Adelaida Yinghholz Work Phone: [facility] Encounters Encounter Date Encounter Type Care Provider Facility Start: 02-04-2024 End: 02-04-2024 Refill Sonam Brown [employer] Work Phone: [facility] Comment on above: Restless leg Start: 01-28-2024 End: 01-28-2024 Bamboo flowsheet Adelaida Carrion [employer] Work Phone: [facility] Start: 01-28-2024 End: 01-28-2024 Bamboo flowsheet Adelaida Carrion [employer] Work Phone: [facility] Start: 01-28-2024 End: 01-28-2024 Office outpatient visit 15 minutes Adelaida Carrion [employer] Work Phone: [facility] Comment on above: Acute cystitis witho ut hematuria (Primary Dx); Tobacco dependence; Needs flu shot; Morbid obesity ([facility]/HCC) Start: 01-28-2024 End: 01-28-2024 ambulatory ADELAIDA AICHHOLZ Not Available Start: 01-25-2024 End: 01-25-2024 ambulatory Syeda Mancuso MD Facility:[facility] Start: 01-21-2024 End: 01-25-2024 Clinisync Result Encounter Generic External Data Provider [facility] External Department Unsolicited Start: 01-21-2024 End: 01-25-2024 [facility]inis[facility] Result Encounter Generic External Data Provider [facility] External Department Unsolicited Start: 01-06-2024 ambulatory Adelaida Carrion Facilit y:[facility] Start: 01-05-2024 End: 01-05-2024 Clinisync Result Encounter Adelaida Carrion LIME PULLER Work Phone: [facility] External Department Unsolicited Start: 01-05-2024 End: 01-05-2024 Clinisync Result Encounter Adelaida Sheyla LIME P[employer]ER Work Phone: [facility] External Department Unsolicited Start: [...] 06-29-2023 End: 06-29-2023 ambulatory Syeda Mancuso MD Facility:[facility] Start: 05-22-2023 End: 05-22-2023 ambulatory ASHLEIGH HINES Not Available Start: 05-21-2023 Refill Adelaida Carrion LIME PULLER Work Phone: [facility] Comment on above: Acute cystitis with hematuria (Primary Dx) Start: 05-18-2023 End: 05-18-2023 Office outpatient visit 25 minutes Adelaida Carrion LIME PULLER Work Phone: [facility] Comment on above: Encounter [...] encounter Start: 05-18-2023 End: 05-18-2023 ambulatory ADELAIDA MERRYHOLZ Not Available Start: 05-18-2023 Bamboo flowsheet Adelaida Carrion LIME PULLER Work Phone: [facility] Start: 05-18-2023 Bamboo flowsheet Adelaida Carrion LIME PULLER Work Phone: [facility] Start: 05-18-2023 End: 05-18-2023 Patient encounter procedure Adelaida Carrion LIME PULLER Work Phone: [facility] Start: 03-25-2023 End: 03-25-2023 ambulatory ADELAIDA MERRYHOLZ Not Available Start: 03-23-2023 End: 03-23-2023 Admission to same day surgery center Adelaida Carrion Work Phone: [facility] Work Phone: Start: 03-23-2023 End: 03-23-2023 ambulatory Adelaida Mcnair Yingmarqueskushlily Work Phone: [facility] Work Phone: Start: 03-11-2023 End: 03-11-2023 ambulatory KALLI INTERIANO Not Available Start: 02-20-2023 End: 02-20-2023 ambulatory ASHLEIGH HINES Not Available Start: 02-12-2023 End: 02-12-2023 ambulatory Jace Graham Other [email or web address] Other Start: 02-12-2023 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 Facili ty:H1 Start: 08-26-2022 ambulatory NARENDRANATH LAKSHMIPATHY . 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 Facility:H1 Start: 07-11-2022 ambulatory NARENDRANATH LAKSHMIPATHY . Facility:H1 Start: 06-26-2022 End: 06-27-[address] FINA ZIMMER . Facility:[facility]1 Start: 06-11-2022 ambulatory BUSINESS LAW PROFESSOR ADELAIDA AICMarquesHOLZ Facil ity:H1 Start: 05-21-2022 End: 06-11-2022 ambulatory LIVIER CARRION Facility:H1 Start: 05-08-2022 End: 05-09-2022 ambulatory LIVIER CARRION Facility:H1 Start: 04-28-2022 End: 04-28-2022 ambulatory LIVIER CARRION Facility:H1 Start: 04-03-2022 End: 04-04-[address] FINA ZIMMER . Facility:H1 Start: 03-19-2022 End: 03-20-2022 ambulatory LIVIER CARRION Facility:H1 Start: 02-20-2022 End: 02-20-2022 ambulatory GILMER PURA Facility:H1 Start: 01-10-2022 End: 02-12-2022 ambulatory BRIDGETTE Ca [facility] Facility:H1 Start: 01-02-2022 End: 01-03-[address] FINA ZIMMER . Facility:H1 Start: 01-01-2022 End: 01-02-2022 ambulatory BIRDGETTE Ca [facility] Facility:H1 Start: 12-16-2021 End: 12-16-2021 ambulatory [...] End: 07-03-2018 Patient encounter procedure SUKI ESCALANTE Facility:[facility] Procedures Date Procedure Procedure Detail Performing Clinician Start: 01-28-2024 Urnls dip stick/tabl et rgnt non-auto w/o micrscp Adelaida Carrion L[employer] P[employer]ER Work Phone: Start: 01-21-2024 MHPT CULT,URINE Generic External Data Provider Start: 01-05-2024 ALL BASIC METABOLIC PANEL Adelaida Carrion LIME P[employer]ER Work Phone: Start: 09-18-2023 Mammography Adelaida Carpenter rachel LIME P[employer]ER Work Phone: Start: 03-23-2023 Screening colonoscopy L oneal Sheyla Work Phone: Start: 03-23-2023 Colonoscopy Adelaida Carpenter rachel [employer] Work Phone: Start: 09-15-2022 Mammography Adelaida perezlily [employer]ER Work Phone: Start: 08-28-2022 Microscopic observat ion [Identifier] in Cervix by Cyto stain Adelaidamyrna Carrion L[employer] P[employer]ER Work Phone: Start: 07-02-2018 ANESTH KNEE AREA SURGERY CHAPARRITA Lucio HENDRICKS Start: 07-02-2018 REMOVAL OF SUPPORT IMPLANT SUKI EBSANDRA Start: 07-02-2018 TREAT KNEECAP FRACTURE SUKI EBRAHEIM Plan of Treatment Date Care Activity Detail Author Start: 03-23-2033 Screening for malignant neoplasm of colon [facility] Start: 08-28-2025 Screening for malignant neoplasm of cervix [facility] Start: 09-17-2024 Screening for malignant neoplasm of breast Mammogram [facility] Start: 05-18-2024 Medicare Annual Wellness (AWV) Medicare Annual Wellness (AWV) [facility] Start: 04-04-2024 End: 04-04-2024 Patient encounter procedure 04/04/2024 1:20 PM EST Office Visit [facility] [address] [place] [address] Adelaida Carrion NP [address] [place] [address] [facility] Start: 03-01-2024 End: 03-01-2024 Patient encounter procedure 03/01/2024 12:00 PM EST Office Visit [facility] [place] [address] [place] [phone] Juany Leggett PA [address] [place] [address] [address] Start: 02-29-2024 End: 02-29-2024 Patient encounter procedure 02/29/2024 2:40 PM EST [facility] [place] [address] Sonam Brown, LIME PULLER [address] [place] [address] [facility] [address] Start: 02-16-2024 End: 02-16-2024 Patient encounter procedure 02/16/2024 11:30 AM EST Procedure Visit [facility] [address] [place] [phone] Adelaida Carrion, LIME PULLER [address] [place] [phone] [facility] Start: 02-04-2024 Influenza vaccination Influenza Vacc ine (#1) [facility] Comment on above: Postponed from 12/05 (Patient Does Not Have Time) Start: 01-28-2024 End: 01-27-2025 URINARY TRACT INFECTION (HTRX) URINARY TRACT INFECTION (HTRX) Lab Routine Acute cystitis without hematuria Expected: 01/28/2024 (Approximate), Expires: 01/27/2025 [facility] Work Phone: Comment on above: Expected: 01/28/2024 (Approximate), Expires: 01/27/2025 Start: 01-28-2024 End: 01-28-2024 [facility] Comment on above: Tobacco dependence ( Primary Dx) Start: 09-16-2023 Screening for malignant neoplasm of breast Mammogram [facility] Start: 08-17-2023 End: 08-17-2023 Patient encounter procedure 08/17/2023 9:20 AM EDT Office Visit [facility] [address] [place] [phone] Adelaida Carrion, LIME PULLER [address] [place] [phone] [facility] Start: 05-22-2023 End: 05-22-2023 Patient encounter procedure 05/22/2023 8:45 AM EST Office Visit [facility] [address] [facility] [address] [place] [address] Ashleigh Hines PA [address] [facility] [address] [place] [address] [facility] Start: 05-18-2023 End: 05-18-2023 Patient encounter procedure 05/18/2023 4:30 PM EST Office Visit [facility] [address] [place] [phone] Adelaida Carrion NP [address] [place] [phone] Arrived [facility] Comment on above: Arrived Start: 05-18-2023 End: 05-18-2024 XR Hip - left 3 Views XR hip left 2 or 3 views Imaging Routine Left hip pain Expected: 05/18/2023 (Approximate), Expires: 05/18/2024 [facility] Work Phone: Comment on above: Expected: 05/18/2023 (Approximate), Expires: 05/18/2024 Start: 03-23-2023 [facility] Start: 11-20-2022 [facility] Start: 11-18-2022 Referral to clinical flower planter [facility] Start: 11-17-2022 Hospital admission [facility] Start: 11-17-2022 [facility] Start: 12-06-1991 Screening for malignant neoplasm of cervix HPV/Cotest [facility] Start: 1960 Medicare Annual Wellness (AWV) Medicare Annual Wellness (AWV) [facility] Start: 1960 Screening for malignant neoplasm of colon [facility] Patient Education [facility] Work Phone: Patient referral [facility] Work Phone: [facility] Immunizations Immunization Date Immunization Notes Care Provider Parker stevens 01-28-2024 Influenza, injectabl e, Madin Commercial Point Canine Kidney, preservative free, quadrivalent Adelaida Aichholz LIME P[employer]ER Work Phone: [facility] 08-17-2023 zoster vaccine recombinant Adelaida Aichholz LIME P[employer]ER Work Phone: [facility] 02-13-2023 influenza, injectabl e, quadrivalent, preservative free Adelaida Aichholz LIME P[employer]ER Work Phone: [facility] 02-13-2023 SARS-COV-2 (COVID-19 ) vaccine, mRNA, spike protein, LNP, PF, 50 mcg/0.5 mL Adelaida Aichholz LIME P[employer]ER Work Phone: [facility] 02-13-2023 influenza virus vaccine, unspecified formulation Adelaida Aichholz LIME P[employer]ER Work Phone: [facility] 02-19-2022 diphtheria, tetanus toxoids and pertussis vaccine Adelaida Aichholz LIME P[employer]ER Work Phone: [facility] 03-02-2021 Moderna SARS-CoV-2 Vaccination Adelaida Aichholz LIME PULLER Work Phone: [facility] 08-24-2020 Moderna SARS-CoV-2 Vaccination Adelaida Aichholz LIME P[employer]ER Work Phone: [facility] 07-27-2020 Moderna SARS-CoV-2 Vaccination Adelaida Aichholz LIME PULLER Work Phone: [facility] 05-28-2018 influenza, injectabl e, quadrivalent, preservative free Adelaida Aichholz Work Phone: [facility] 2017 pneumococcal conjuga te vaccine, 13 valent Adelaida Aichholz LIME PULLER Work Phone: [facility] Payers Date Payer Category Payer Private Health Insurance [id number] 2022 Self-pay [id number] 2022 Medicare [id number] 2022 Medicare (Managed Care) [facility] [id number] 2008 Unknown [id number] 1961 Unknown [id number] 2.16.840.1.835466.3.579.2 .647 1961 Unknown [id number] 2.16.840.1.998979.3.579.2 .593 1961 Unknown [id number] 2.16.840.1.703297.3.579.2 .593 1961 Unknown [id number] 2.16.840.1.709641.3.579.2 .593 1961 Unknown [id number] 2.16.840.1.679385.3.579.2 .593 1961 Unknown [id number] 2.16.840.1.757845.3.579.2 .593 1961 Unknown [id number] 2.16.840.1.112223.3.579.2 .593 1961 Unknown [id number] 2.16.840.1.292161.3.579.2 .593 1961 Unknown [id number] 2.16.840.1.526315.3.579.2 .593 1961 Unknown [id number] 2.16.840.1.641730.3.579.2 .593 1961 Unknown [id number] 2.16.840.1.308070.3.579.2 .593 1961 Unknown [id number] 2.16.840.1.903653.3.579.2 .593 1961 Unknown [id number] 2.16.840.1.592938.3.579.2 .593 1961 Unknown [id number] 2.16.840.1.870520.3.579.2 .593 1961 Unknown [id number] 2.16.840.1.913968.3.579.2 .593 1961 Unknown [id number] 2.16.840.1.868224.3.579.2 .593 1961 Unknown [id number] 2.16.840.1.715576.3.579.2 .593 1961 Unknown [id number] 2.16.840.1.829739.3.579.2 .593 1961 Unknown [id number] 2.16.840.1.184519.3.579.2 .593 1961 Unknown [id number] 2.16.840.1.028967.3.579.2 .593 1961 Unknown [id number] 2.16.840.1.872168.3.579.2 .593 1961 Unknown [id number] 2.16.840.1.247674.3.579.2 .593 1961 Unknown [id number] 2.16.840.1.669811.3.579.2 .593 1961 Unknown [id number] 2.16.840.1.253735.3.579.2 .593 1961 Unknown [id number] 2.16.840.1.176572.3.579.2 .593 1961 Unknown [id number] 2.16.840.1.972029.3.579.2 .125 1961 Unknown [id number] 2.16.840.1.857049.3.579.2 .1258 1961 Unknown [id number] 2.16.840.1.159988.3.579.2 .1258 1961 Unknown [id number] 2.16.840.1.270911.3.579.2 .1258 1961 Unknown [id number] 2.16.840.1.628178.3.579.2 .1258 1961 Unknown [id number] 2.16.840.1.546710.3.579.2 .1258 1961 Unknown [id number] 2.16.840.1.942642.3.579.2 .1258 1961 Unknown [id number] 2.16.840.1.888423.3.579.2 .1258 1961 Unknown [id number] 2.16.840.1.393569.3.579.2 .1258 1961 Unknown [id number] 2.16.840.1.119698.3.579.2 .1258 1961 Unknown [id number] 2.16.840.1.921032.3.579.2 .1258 1961 Unknown [id number] 2.16.840.1.791586.3.579.2 .1258 1961 Unknown [id number] 2.16.840.1.778935.3.579.2 .1259 1961 Unknown [id number] 2.16.840.1.756086.3.579.2 .1259 1961 Unknown [id number] 2.16.840.1.114788.3.579.2 .1259 1961 Unknown [id number] 2.16.840.1.976700.3.579.2 .1259 1961 Unknown [id number] 2.16.840.1.184686.3.579.2 .196 1961 Unknown [id number] 2.16.840.1.174313.3.579.2 .196 1959 Medicare [id number] 1959 Unknown [id number] Medicare Medicare [id number] Unknown [id number] 2.16.840.1.980182.3.579.2 .531 Unknown [id number] 2.16.840.1.859043.3.579.2 .531 Social History Date Type Detail Facility Start: 11-18-2022 End: 10-14-2023 Tobacco smoking status IAIS Ex-smoker (finding) [facility] Start: 1960 Sex Assigned At Female [facility] Start: 03-25-2023 End: 08-16-2023 Sex Assigned At [facility] Start: 04-06-1976 End: 04-06-2016 History of tobacco use Current smoker [facility] Start: 04-06-1976 End: 04-06-2016 History of tobacco use Cigarette Smoker [facility] Start: 02-09-2023 End: 08-16-2023 Cigarettes smoked current (pack per day) - Reported 1 [facility] Start: 02-09-2023 End: 10-14-2023 Tobacco use and exposure Smokeless tobacco non-user [facility] Start: 05-18-2023 End: 01-28-2024 Alcohol intake Lifetime non-drinker (finding) [facility] Start: 11-13-2022 Alcohol Comment caffeine intake: 1-2 cups per day. [facility] Start: 10-01-2022 Gender identity Identifies [...] Facility 11-20-2022 Functional status Patient at Baseline [facility] Work Phone: Mental Status Date Assessment Result Facility 11-20-2022 Cognitive function Cognitive Sta tus Patient is Progressing Toward Baseline [facility] Work Phone: Clinical Notes 10-03-2021 to 01-28-2024 [...] ER fu for UTI and dehydration. See [facility] for HPI Was sent home on Bactrim. Feels completely fine now, no fever, chills, malodorous urine, no constipation diarrhea or abd pain SUBJECTIVE: MEDICATIONS: Current Outpatient Medications Medication Instructions amLODIPine (NORVASC) 10 mg, Oral, Daily biotin 5 MG tablet Pt taking OTC (Realeyes 3D) Calcium Citrate-Vitamin D (CITRACAL + D PO) Pt taking OTC (RingCredible) carvedilol (COREG) 12.5 mg, Oral, 2 times [...] Daily Magnesium 400 MG capsule Pt taking OTC([facility]) Melatonin 12 MG tablet 1 tablet, Oral, Nightly Multiple Vitamins-Minerals (BARIATRIC MULTIVITAMINS/IRON PO) Pt taking OTC ([facility]) nystatin (Mycostatin) 834748 UNIT/GM powder 1 application , Topical, 2 [...] Anxiety 05/18/2023 Bipolar disorder with severe depression ([facility]) 05/18/2023 Brain lesion Brain vascular malformation Chronic pain disorder Closed fracture of patella 02/04/2018 Colon polyps Constipation Degenerative cervical disc Degenerative lumbar disc Depression ([facility]) 05/18/2023 Diastolic dysfunction Dizziness 05/18/2023 Dysphagia Fibromyalgia Fibromyalgia Gastrocnemius equinus GERD (gastroesophageal reflux disease) Heart murmur Hematoma of right breast Hemiparesis ([facility]) Hemiparesis, right ([facility]) Hemorrhoid int/external hemorrhoids Hiatal hernia Iron deficiency Left foot pain 03/25/2023 Lower extremity edema Mood disorder ([facility]) mixed mood disorder OSMANY (obstructive sleep apnea) Osteoporosis ([facility]) Overactive bladder Pre-diabetes Primary hypertension ([facility]) 03/25/2023 PTSD (post-traumatic stress disorder) ([facility]) Restless leg Right knee pain Right sided weakness S/P bariatric surgery Shingles Slurred speech Stroke ([facility]) 2018 Tenosynovitis, de Quervain Thoracic back [...] of the risks of continued smoking: stroke, [place], all forms of cancer, lung disease, and [...] Relevant Orders Flu vaccine, MDCK, quadrivalent, PF ([id number]) (Flucelvax single dose syringe) Associated Problem(s): Tobacco dependence The patient has been advised of the risks of continued smoking: stroke, [place], all forms of cancer, lung disease, and [...] (BARIATRIC MULTIVITAMINS/IRON PO) Bariatric Multivitamins/Iron nystatin (Mycostatin) 060608 UNIT/GM powder 1 application , Topical, 2 [...] Anxiety 05/18/2023 Bipolar disorder with severe depression ([facility]) 05/18/2023 Brain vascular malformation Chronic pain disorder Colon polyps Constipation Degenerative cervical disc Degenerative lumbar disc Depression ([facility]) 05/18/2023 Diastolic dysfunction Dizziness 05/18/2023 Dysphagia Fibromyalgia Gastrocnemius equinus GERD (gastroesophageal reflux disease) Heart murmur Hematoma of right breast Hemiparesis, right ([facility]) Hemorrhoid int/external hemorrhoids Hiatal hernia Iron deficiency Left foot pain 03/25/2023 Lower extremity edema Mood disorder ([facility]) mixed mood disorder OSMANY (obstructive sleep apnea) Osteoporosis ([facility]) Overactive bladder Pre-diabetes Primary hypertension ([facility]) 03/25/2023 PTSD (post-traumatic stress disorder) ([facility]) Restless leg Right knee pain Right sided weakness S/P bariatric surgery Shingles Slurred speech Stroke ([facility]) 2018 Tenosynovitis, de Quervain Thoracic back [...] and prn documented in this encounter [facility] 03-23-2023 Procedure note [facility] 12-19-2022 Evaluation note Encounter Date Diagnosis Assessment Notes Dec, Skin candidiasis (ICD-10 - B37.2) Drink plenty fluids, get plenty of rest. Continue home medications as prescribed. Take the Diflucan as prescribed until gone. Follow-up with your family physician if no improvement in 2 to 3 days [email or web address] Other 08-17-2023 Discharge summary Author Eduardo bautista [facility] November 20, 2022 6:38am Note Date/Time November 20, 2022 6: 38am [facility] [address] [place] [address] Discharge Summary Signed Patient: Michelle Be MR#: [id number] : 1960 Acct:[id number] Age/Sex: 61 / F Adm Date: 3 Loc: Room: [address] [place] [address]: Gaudencio Monk MD Copies to: MD Adelaida Álvarez, LIME PULLERMaldonadoC~ Providers Date of Discharge: 11/20/22 Discharging Provider: [...] at that time.? She reports moving to [place] from [place] in 2011 and was then diagnosed with bipolar disorder at [facility] in [place], where she still follows with a therapist.? Shereports that she has been with 7 therapists in the last 9 years and is currentlycompleting EMDR with her current therapist. Past hospitalizations: Her most recent hospitalization was 5 years ago [place] in [place] for the same feeling she is experiencing [...] worked since 2010 due to her fibromyalgia.? [facility]. 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 (insert date/time here) [...] Eduardo Monk MD> 11/20/22 0638 [facility] Work Phone: 1(754) 727-939408-16-2023 Progress note Author Eduardo bautista [facility] November 19, 2022 6:25am Note Date/Time November 19, 2022 6: 25am [facility] [address] [place] [address] Psychiatry Progress Note Signed Patient: Michelle Be MR#: [id number] : 1960 Acct:[id number] Age/Sex: 61 / F Adm Date: 3 Loc: Room: [address] [place] [address] Type : ADM IN Attending Dr: Gaudencio [...] <Electronically signed by Eduardo Monk MD> 11/19/22624 [facility] Work Phone: 1(112) 899-353308-15-2023 Progress note Author Eduardo bautista [facility] November 18, 2022 11:01am Note Date/Time November 18, 2022 10 :11am [facility] [address] [place] [address] Psychiatry Progress Note Signed Patient: Michelle Be MR#: [id number] : 1960 Acct:[id number] Age/Sex: 61 / F Adm Date: 3 Loc: 1S Room: [address] [place] [address] Type : ADM IN Attending Dr: Gaudencio [...] by requesting a schedule 2 referring to [place] for pain management specifically every 4-6 hours [...] time Documented By: Eduardo Monk MD 3 [id number] Signed By: <Electronically signed by Eduardo Monk MD> 11/18/22 1101 <Electronically signed by MD DA Rangel> 11/18/22 1011 [facility] Work Phone: 1(244) 634-556808-14-2023 History and physical note Author Eduardo bautista [facility] November 17, 2022 12:48pm Note Date/Time November 17, 2022 12 :48pm [facility] [address] [place] [address] Psychiatry H&P Signed Patient: Michelle Be MR#: [id number] : 1960 Acct:[id number] Age/Sex: 61 / F Adm Date: 3 Loc: 1S Room: 6M5046-0 Type: ADM IN Attending Dr: Gaudencio Monk MD Copies to: MD Adelaida Álvarez LIME PULLER-C~ Date of Service: 11/17/2022 HPI History of [...] at that time. She reports moving to [place] from [place] in 2011 and was then diagnosed with bipolar disorder at [facility] in [place], where she still follows with a therapist. Shereports that she has been with 7 therapists in the last 9 years and is currentlycompleting EMDR with her current therapist. Past hospitalizations: Her most recent hospitalization was 5 years ago [facility] for the same feeling she is [...] worked since 2010 due to her fibromyalgia. [facility]. Relationships: Reports [...] bilaterally. CN XII: Tongue protrusion midline [facility] Medical History (Updated 11/17/22 @ 10:42 [...] signed by Eduardo Monk MD> 11/17/22 1248 [facility] Work Phone: 1(130) 241-217303-23-2023 NoteCONSULTATION CONSULTATION DATE: 06/26/2022 To: Nurse Carrion [...] L5-S1 facet joint injection under fluoroscopic guidance.[id number] NotePROCEDURE: XR SHOULDER RT 2V or > [...] authenticated by: KINGSLEY CLEMENTS Date: 2022-05-09 09:21[facility] [id number] NotePROCEDURE: XR WRIST LT MIN 3 V [...] Electronically authenticated by: KINGSLEY CLEMENTS Date: 2022-04-28 13:31[facility]12-29-2022 NoteCONSULTATION CONSULTATION DATE: 04/03/2022 HISTORY OF PRESENT ILLNESS: This is a 61-year-old female who returns to the clinic for a three month follow up for chronic lower back pain. She states, overall, her back is feeling pretty decent, rated 3/10 on a pain scale. She is under the care of Dr. aMcedo, who is taking care of bilateral feet [...] her in three months, unless otherwise indicated.[facility] [id number] NoteCONSULTATION CONSULTATION DATE: 01/02/2022 This is a [...] prescription was sent by Dr. Macedo to [facility] in [place] for the compounded cream. She needs a [...] in three months' time unless otherwise indicated.[id number] NotePROCEDURE: XR ANKLE RT MIN 3 VIEWS, [...] Electronically authenticated by: KINGSLEY CLEMENTS Date: 2022-01-01 13:11[facility]09-28-2022 NotePROCEDURE: XR ANKLE RT MIN 3 [...] Electronically authenticated by: KINGSLEY CLEMENTS Date: 2022-01-01 13:11[facility]08-18-2022 NotePROCEDURE: XR FOOT RT MIN 3 VIEWS HISTORY: Pain in right foot , chronic COMPARISON: XR foot right 2020 FINDINGS: BONES:No fracture, dislocation, bone lesion. Small calcaneal degenerative enthesophytes. SOFT TISSUES:No visible soft tissue swelling. EFFUSION:None visible. OTHER: Negative. IMPRESSION: 1. No acute bone abnormality or significant degenerative joint disease. Electronically authenticated by: KINGSLEY CLEMENTS Date: 2021-11-21 16:13[facility]06-30-2022 NoteCONSULTATION CONSULTATION DATE: 10/03/2021 This is [...] patient agrees with the plan of care. [facility] Signed and Approved by: ZELDA MCDANIEL . 10/10/2021 10:22:00[facility] Diagnosis Onset Date Resolution Status Allergies acute Bipolar 2 disorder acute Hypertension acute Morbid obesity with BMI of 45.0-49.9, adult acute OSMANY (obstructive sleep apnea) acute Restless legs syndrome acute [facility] Work Phone: Evaluation noteNo InformationNort [employer] Other Evaluation noteNo assessment information available [facility] Work Phone: Evaluation note* Diagnosis Encounter for annual wellness visit (AWV) in Medicare patient- Primary OSMANY (obstructive sleep apnea) Obstructive sleep apnea (adult) (pediatric) Chronic pain disorder Chronic pain syndrome Gastroesophageal reflux disease, unspecified whether esophagitis present Overactive bladder Hypertonicity of bladder Lower extremity edema Edema Pre-diabetes Other abnormal glucose Morbid obesity ([facility]) Morbid obesity Yeast infection of the skin Candidiasis of skin and nails Tobacco dependence Tobacco use disorder Mood disorder ([facility]) Unspecified episodic mood disorder Primary hypertension ([facility]) Unspecified essential hypertension Left hip pain Pain in joint, pelvic region and thigh Open wound of anterior abdominal wall, initial encounter documented in this encounter [facility] Healthcare[facility]* Diagnosis Acute cystitis with hematuria- Primary documented in this encounter [facility] HealthcareEvaluation note* Diagnosis Left foot pain- Primary Pain in soft tissues of limb Primary hypertension ([facility]) Unspecified essential hypertension Class 3 severe obesity due to excess calories without serious comorbidity with body mass index (BMI) of 45.0 to 49.9 in adult ([facility]) Encounter for annual wellness visit (AWV) in Medicare patient- Primary OSMANY (obstructive sleep apnea) Obstructive sleep apnea (adult) (pediatric) Chronic pain disorder Chronic pain syndrome Gastroesophageal reflux disease, unspecified whether esophagitis present Overactive bladder Hypertonicity of bladder Lower extremity edema Edema Pre-diabetes Other abnormal glucose Morbid obesity ([facility]) Morbid obesity Yeast infection of the skin Candidiasis of skin and nails Tobacco dependence Tobacco use disorder Mood disorder ([facility]) Unspecified episodic mood disorder Primary hypertension ([facility]) Unspecified essential hypertension Left hip pain Pain in joint, pelvic region and thigh Open wound of anterior abdominal wall, initial encounter Primary hypertension ([facility])- Primary Unspecified essential hypertension Yeast infection of the skin Candidiasis of skin and nails Morbid obesity ([facility]) Morbid obesity Primary hypertension ([facility])- Primary Unspecified essential hypertension Encounter for screening mammogram for malignant neoplasm of breast Gastroesophageal reflux disease, unspecified whether esophagitis present Acute gout of right foot, unspecified cause Osteoporosis, unspecified osteoporosis type, unspecified pathological fracture presence ([facility]) Morbid obesity ([facility]) Morbid obesity Pre-diabetes Other abnormal glucose Anemia, unspecified type Vitamin deficiency Unspecified vitamin deficiency Post-viral cough syndrome Primary hypertension ([facility])- Primary Unspecified essential hypertension Allergic rhinitis, unspecified Acute cough Morbid obesity ([facility]) Morbid obesity Former cigarette smoker Personal history of tobacco use, presenting hazards to health Toxic metabolic encephalopathy- Primary Hemiparesis, right ([facility]) Unspecified hemiplegia affecting unspecified side Acute respiratory failure with hypoxia ([facility]) Heart murmur Undiagnosed cardiac murmurs Primary hypertension ([facility]) Unspecified essential hypertension Morbid obesity ([facility]) Morbid obesity Bipolar disorder with severe depression ([facility]) Slurred speech Other speech disturbance Bilateral lower extremity edema- Primary Primary hypertension ([facility]) Unspecified essential hypertension Lower extremity edema Edema Essential (primary) hypertension ([facility]) Unspecified essential hypertension Gastro-esophageal reflux disease without esophagitis Allergic rhinitis, unspecified Bilateral lower extremity edema- Primary Morbid (severe) obesity due to excess calories ([facility]) Body mass index (BMI) 45.0-49.9, adult ([facility]) Pre-diabetes Other abnormal glucose Bilateral lower extremity edema- Primary Essential (primary) hypertension ([facility]) Unspecified essential hypertension Allergic rhinitis, unspecified OSMANY (obstructive sleep apnea) Obstructive sleep apnea (adult) (pediatric) Primary hypertension ([facility]) Unspecified essential hypertension Morbid obesity ([facility]) Morbid obesity Acute cystitis without hematuria- Primary Tobacco dependence Tobacco use disorder Needs flu shot Need for prophylactic vaccination and inoculation against influenza Morbid obesity ([facility]) Morbid obesity documented in this encounter [facility] HealthcareEvaluation note* Diagnosis Left foot pain- Primary Pain in soft tissues of limb Primary hypertension ([facility]) Unspecified essential hypertension Class 3 severe obesity due to excess calories without serious comorbidity with body mass index (BMI) of 45.0 to 49.9 in adult ([facility]) Encounter for annual wellness visit (AWV) in Medicare patient- Primary OSMANY (obstructive sleep apnea) Obstructive sleep apnea (adult) (pediatric) Chronic pain disorder Chronic pain syndrome Gastroesophageal reflux disease, unspecified whether esophagitis present Overactive bladder Hypertonicity of bladder Lower extremity edema Edema Pre-diabetes Other abnormal glucose Morbid obesity ([facility]) Morbid obesity Yeast infection of the skin Candidiasis of skin and nails Tobacco dependence Tobacco use disorder Mood disorder ([facility]) Unspecified episodic mood disorder Primary hypertension ([facility]) Unspecified essential hypertension Left hip pain Pain in joint, pelvic region and thigh Open wound of anterior abdominal wall, initial encounter Primary hypertension ([facility])- Primary Unspecified essential hypertension Yeast infection of the skin Candidiasis of skin and nails Morbid obesity ([facility]) Morbid obesity Primary hypertension ([facility])- Primary Unspecified essential hypertension Encounter for screening mammogram for malignant neoplasm of breast Gastroesophageal reflux disease, unspecified whether esophagitis present Acute gout of right foot, unspecified cause Osteoporosis, unspecified osteoporosis type, unspecified pathological fracture presence ([facility]) Morbid obesity ([facility]) Morbid obesity Pre-diabetes Other abnormal glucose Anemia, unspecified type Vitamin deficiency Unspecified vitamin deficiency Post-viral cough syndrome Primary hypertension ([facility])- Primary Unspecified essential hypertension Allergic rhinitis, unspecified Acute cough Morbid obesity ([facility]) Morbid obesity Former cigarette smoker Personal history of tobacco use, presenting hazards to health Toxic metabolic encephalopathy- Primary Hemiparesis, right ([facility]) Unspecified hemiplegia affecting unspecified side Acute respiratory failure with hypoxia ([facility]) Heart murmur Undiagnosed cardiac murmurs Primary hypertension ([facility]) Unspecified essential hypertension Morbid obesity ([facility]) Morbid obesity Bipolar disorder with severe depression ([facility]) Slurred speech Other speech disturbance Bilateral lower extremity edema- Primary Primary hypertension ([facility]) Unspecified essential hypertension Lower extremity edema Edema Essential (primary) hypertension ([facility]) Unspecified essential hypertension Gastro-esophageal reflux disease without esophagitis Allergic rhinitis, unspecified Bilateral lower extremity edema- Primary Morbid (severe) obesity due to excess calories ([facility]) Body mass index (BMI) 45.0-49.9, adult ([facility]) Pre-diabetes Other abnormal glucose Bilateral lower extremity edema- Primary Essential (primary) hypertension ([facility]) Unspecified essential hypertension Allergic rhinitis, unspecified OSMANY (obstructive sleep apnea) Obstructive sleep apnea (adult) (pediatric) Primary hypertension ([facility]) Unspecified essential hypertension Morbid obesity ([facility]) Morbid obesity Acute cystitis without hematuria- Primary Tobacco dependence Tobacco use disorder Needs flu shot Need for prophylactic vaccination and inoculation against influenza Morbid obesity ([facility]) Morbid obesity Restless leg Restless legs syndrome (RLS) documented in this encounter [facility] HealthcareHistory and physical note Author Jace Graham [facility] March 23, 2023 11:21am Note Date/Time March 23, 2023 11:21am [facility] [address] [place] [address] Gastroenterology H&P Signed Patient: Michelle Be MR#: [id number] : 1960 Acct:[id number] Age/Sex: 62 / F Adm Date: 3 Loc: Room: Type: [facility] Attending Dr: Jace Graham MD Copies [...] <Electronically signed by Jace Graham MD> 03/23/231120 [facility] Work Phone: History general Narrative - [...] see above surg Hospitalization History stroke 2018 [email or web address] Other Hospital Discharge instructions Additional Instructions Regular Diet No Activity [facility]ions[facility] Work Phone: Hospital Discharge instructions Additional [...] years. -Follow up with PCP. -Office number [phone].[facility] Work Phone: Summary Purpose Family History [...] and content) DATE CREATED AUTHOR 02/18/2019 [facility] DATE CREATED AUTHOR AUTHOR'S ORGANIZ ATION 11/15/2021 [facility] DATE CREATED AUTHOR AUTHOR'S ORGANIZ ATION 08/16/2022 [facility] DATE CREATED AUTHOR AUTHOR'S ORGANIZ ATION 01/28/2024 [facility] DATE CREATED AUTHOR AUTHOR'S ORGANIZ ATION 01/30/2024 [facility] EPIC DATE CREATED AUTHOR AUTHOR'S ORGANIZ ATION 01/31/2024 [facility] Care Teams (unrecognized sec tion and [...] MD Other Provider Active Joellen Le , LIME PULLER-C Other Provider Active Severo Yancey MD Other Provider Active Rao Webber MD Other Provider Active Yuan Shi MD Other Provider Active Delroy Ramirez MD Other Provider Active Berta Comer , DO Other Provider Active Negrito Ruiz , DO Other Provider Active Lacho Singh , DO Other Provider Active Rachana Hobson , CIGARETTE VENDOR Other Provider Active Rob Lake , DO Other Provider Active Jeff Alvarez MD Other Provider Active Urmila Rinaldi , CIGARETTE VENDOR Other Provider Active Bina Mayberry , CIGARETTE VENDOR Other Provider Active Mir Bradford MD Other Provider Active Te Da Silva MD Other Provider Active Debra Landaverde RN Other Provider Active Team Status: Inactive Member Role Status Dates Adelaida Carrion Primary Care Provider Active Jace Graham MD Attending Provider Active New Car Salesperson Relationship Specialty Start Date End Date José Luis Roberts MD [address] [place] [phone] PCP - General Family Medicine 05/18/23 Adelaida Carrion NP [address] [place] [phone] Referring Physician Nurse Practitioner 10/14/22 New Car Salesperson Relationship Specialty Start Date End Date José Luis Roberts MD [address] [place] [phone] PCP - General Family Medicine 05/18/23 Adelaida Carrion NP [address] [place] [phone] Referring Physician Nurse Practitioner 10/14/22 New Car Salesperson Relationship Specialty Start Date End Date José Luis Roberts MD [address] [place] [phone] PCP - General Family Medicine 05/18/23 Adelaida Carrion NP [address] [place] [phone] Referring Physician Nurse Practitioner 10/14/22 New Car Salesperson Relationship Specialty Start Date End Date José Luis Roberts MD [address] [place] [phone] PCP - General Family Medicine 05/18/23 Adelaida Carrion NP Referring Physician Nurse Practitioner 10/14/22 Miriam Suarez DO [address] [place] [address] Referring Physician Neurology 06/29/23 [place] De [place] LPN Licensed Practical Nurse Family Medicine 12/18/23 New Car Salesperson Relationship Specialty Start Date End Date José Luis Roberts MD [address] [place] [phone] PCP - General Family Medicine 05/18/23 Adelaida Carrion NP Referring Physician Nurse Practitioner 10/14/22 Miriam Suarez DO [address] [place] [address] Referring Physician Neurology 06/29/23 [place] De [place] LPN Licensed Practical Nurse Family Medicine 12/18/23 New Car Salesperson Relationship Specialty Start Date End Date Unallocated, Familias MD Mariel[address] [place] [address] PCP - General Family Medicine 01/27/24 Miriam Suarez DO [address] [place] [address] Referring Physician Neurology 06/29/23 [place] De [place] LPN Licensed Practical Nurse Family Medicine 12/18/23 Adelaida Carrion, BRIANA [address] [place] [phone] Nurse Practitioner Family Medicine 01/27/24 New Car Salesperson Relationship Specialty Start Date End Date Unallocated, Geeta Sierra MD [address] [place] [address] PCP - General Family Medicine 01/27/24 Miriam Suarez DO [address] [place] [address] Referring Physician Neurology 06/29/23 [place] De [place] LPN Licensed Practical Nurse Family Medicine 12/18/23 Adelaida Carrion, BRIANA [address] [place] [phone] Nurse Practitioner Family Medicine 01/27/24 New Car Salesperson Relationship Specialty Start Date End Date José Luis Roberts MD [address] [place] [phone] PCP - General Family Medicine 02/02/24 Miriam Suarez DO [address] [place] [address] Referring Physician Neurology 06/29/23 [place] De [place] LPN Licensed Practical Nurse Family Medicine 12/18/23 Adelaida Carrion NP [address] [place] [address] Nurse Practitioner Family Medicine 01/27/24 REASON FOR [...] BE BASED ON THE PRIMARY CLINICAL RECORDS. [employer] provides no warranty or guarantee of the accuracy or completeness of information in this document.
== END 2024-02-16 21:25 | disposition home or self-care (01) ==
LOC: LAB 21:24
PROVIDERS: PCP Nurse Practitioner; Visit Provider Nurse Practitioner
DX: Z01.419 Encounter for gynecological examination (general) (routine) without abnormal findings (principal)
CPT/HCPCS: 87624; 88175

== ENCOUNTER 2024-02-23 07:15 | Day surgery (SDC) | payer MEDICARE, SELFPAY ==
--- OUTSIDE RECORDS SUMMARY | 2024-02-23 07:18 | XMS_ITS | CCD ---
Author Organization [facility] Care Team Providers Care Levi Maker Name Role Phone EBRAHEIM, SUKI Admitting Unavailable EBRAHEIM, SUKI Attending Unavailable AICHHOLZ, ADELAIDA Referring Unavailable AICHHOLZ, ADELAIDA Primary Care Unavailable TX Procedure Practitioner Unavailab SUKI Jacob Surgeon Unavailable TX Procedure Practitioner Unavailab CHAPARRITA Goncalves Surgeon Unavailable BRIDGETTE MACEDO Admitting Unavailable BRIDGETTE MACEDO Attending Unavailable AICHHOLZ, CARBON PAPER COATING MACHINE SETTER ADELAIDA Primary Care Unavailable ZIMMER ., DR FINA Iverson Admitting Unavailable ZIMMER ., DR FINA Iverson Attending Unavailable AICHHOLZ, CARBON PAPER COATING MACHINE SETTER ADELAIDA Primary Care Unavailable MCDANIEL ., ZELDA Consulting Unavailable LAKSHMIPATHY ., NARENDRANATH Consulting Paula vailable LAKSHMIPATHY ., NARENDRANATH Admitting Paula vailable LAKSHMIPATHY ., NARENDRANATH Attending Paula vailable AICHHOLZ, CARBON PAPER COATING MACHINE SETTER ADELAIDA Primary Care Unavailable LAKSHMIPATHY ., NARENDRANATH Consulting Paula vailable AICHHOLZ, CARBON PAPER COATING MACHINE SETTER ADELAIDA Primary Care Unavailable MARKER ., DR CHAUDHRY Admitting Unavailable MARKER ., DR CHAUDHRY Attending Unavailable MARKER ., DR CHAUDHRY Consulting Unavailable AICHHOLZ, CARBON PAPER COATING MACHINE SETTER ADELAIDA Admitting Unavailable AICHHOLZ, CARBON PAPER COATING MACHINE SETTER ADELAIDA Attending Unavailable AICHHOLZ, CARBON PAPER COATING MACHINE SETTER ADELAIDA Primary Care Unavailable ZIMMER ., DR FINA Iverson Admitting Unavailable ZIMMER ., DR FINA Iverson Attending Unavailable AICHHOLZ, CARBON PAPER COATING MACHINE SETTER ADELAIDA Primary Care Unavailable MCDANIEL ., ZELDA Consulting Unavailable ZIMMER ., DR FINA Iverson Admitting Unavailable ZIMMER ., DR FINA Iverson Attending Unavailable AICHHOLZ, CARBON PAPER COATING MACHINE SETTER ADELAIDA Primary Care Unavailable MCDANIEL ., ZELDA Consulting Unavailable AICHHOLZ, CARBON PAPER COATING MACHINE SETTER ADELAIDA Admitting Unavailable AICHHOLZ, CARBON PAPER COATING MACHINE SETTER ADELAIDA Attending Unavailable AICHHOLZ, CARBON PAPER COATING MACHINE SETTER ADELAIDA Primary Care Unavailable AICHHOLZ, CARBON PAPER COATING MACHINE SETTER ADELAIDA Consulting Unavailable AICHHOLZ, CARBON PAPER COATING MACHINE SETTER ADELAIDA Admitting Unavailable AICHHOLZ, CARBON PAPER COATING MACHINE SETTER ADELAIDA Attending Unavailable AICHHOLZ, CARBON PAPER COATING MACHINE SETTER ADELAIDA Primary Care Unavailable AICHHOLZ, CARBON PAPER COATING MACHINE SETTER ADELAIDA Consulting Unavailable MISC, DR COTE Admitting Unavailable MISC, DR COTE Attending Unavailable AICHHOLZ, CARBON PAPER COATING MACHINE SETTER ADELAIDA Primary Care Unavailable AICHHOLZ, CARBON PAPER COATING MACHINE SETTER ADELAIDA Consulting Unavailable PRITESHC, DR COTE Consulting Unavailable STARR, DR KINGSLEY Atkins Consulting Unavailable ZIMMER ., DR FINA Iverson Admitting Unavailable ZIMMER ., DR FINA Iverson Attending Unavailable AICHOLZ, CARBON PAPER COATING MACHINE SETTER ADELAIDA Primary Care Unavailable MCDANIEL ., ZELDA Consulting Unavailable ZIMMER ., DR FINA Iverson Admitting Unavailable ZIMMER ., DR FINA Iverson Attending Unavailable AICHOLZ, CARBON PAPER COATING MACHINE SETTER ADELAIDA Primary Care Unavailable ZIMMER ., DR FINA Iverson Consulting Unavailable OMID LAY Consulting Unavailable ZIMMER ., DR FINA Iverson Admitting Unavailable ZIMMER ., DR FINA Iverson Attending Unavailable AICHOLZ, CARBON PAPER COATING MACHINE SETTER ADELAIDA Primary Care Unavailable MCDANIEL ., ZELDA Consulting Unavailable AICHOLZ, CARBON PAPER COATING MACHINE SETTER ADELAIDA Primary Care Unavailable HALKER ., ARIAN Admitting Unavailable HALKER ., ARIAN Attending Unavailable LAKSHMIPATHY ., NARENDRANATH Consulting Paula vailable HALKER ., ARIAN Consulting Unavailable LAKSHMIPATHY ., NARENDRANATH Admitting Paula vailable LAKSHMIPATHY ., NARENDRANATH Attending Paula vailable AICHOLZ, CARBON PAPER COATING MACHINE SETTER ADELAIDA Primary Care Unavailable LAKSHMIPATHY ., NARENDRANATH Consulting Paula vailable AICHHOLZ, CARBON PAPER COATING MACHINE SETTER ADELAIDA Admitting Unavailable AICHHOLZ, CARBON PAPER COATING MACHINE SETTER ADELAIDA Attending Unavailable AICHHOLZ, CARBON PAPER COATING MACHINE SETTER ADELAIDA Primary Care Unavailable AICHHOLZ, CARBON PAPER COATING MACHINE SETTER ADELAIDA Consulting Unavailable BRIDGETTE MACEDO Admitting Unavailable BRIDGETTE MACEDO Attending Unavailable AICHHOLZ, CARBON PAPER COATING MACHINE SETTER ADELAIDA Primary Care Unavailable DR KINGSLEY CLEMENTS Consulting Unavailable BRIDGETTE MACEDO Consulting Unavailable PURA, GILMER Admitting Unavailable GILMER NEVES Attending Unavailable PURA, GILMER Consulting Unavailable AICHHOLZ, CARBON PAPER COATING MACHINE SETTER ADELAIDA Primary Care Unavailable AICHHOLZ, CARBON PAPER COATING MACHINE SETTER ADELAIDA Primary Care Unavailable DR WILLI RINALDI Admitting Unavailable DEEJAY, DR WILLI Atkins Attending Unavailable DR WILLI RINALDI Consulting Unavailable AICHHOLZ, CARBON PAPER COATING MACHINE SETTER ADELAIDA Primary Care Unavailable ALMAZ ., DANNY Admitting Unavailable ALMAZ ., DANNY Attending Unavailable DR KINGSLEY CLEMENTS Consulting Unavailable ALMAZ ., DANNY Consulting Unavailable LAKSHMIPATHY ., NARENDRANATH Admitting Paula vailable LAKSHMIPATHY ., NARENDRANATH Attending Paula vailable AICHHOLZ, CARBON PAPER COATING MACHINE SETTER ADELAIDA Primary Care Unavailable AICHHOLZ, CARBON PAPER COATING MACHINE SETTER ADELAIDA Admitting Unavailable AICHHOLZ, CARBON PAPER COATING MACHINE SETTER ADELAIDA Attending Unavailable AICHHOLZ, CARBON PAPER COATING MACHINE SETTER ADELAIDA Primary Care Unavailable AICHHOLZ, CARBON PAPER COATING MACHINE SETTER ADELAIDA Admitting Unavailable AICHHOLZ, CARBON PAPER COATING MACHINE SETTER ADELAIDA Attending Unavailable AICHHOLZ, CARBON PAPER COATING MACHINE SETTER ADELAIDA Primary Care Unavailable AICHHOLZ, CARBON PAPER COATING MACHINE SETTER ADELAIDA Consulting Unavailable DR KINGSLEY CLEMENTS Consulting Unavailable HALKER ., ARIAN Admitting Unavailable HALKER ., ARIAN Attending Unavailable AICHHOLZ, CARBON PAPER COATING MACHINE SETTER ADELAIDA Primary Care Unavailable Aichholz, Adelaida J [...] Other Provider DO Joon Cristina Other Provider [phone] MD Torin Robert Other Provider MD Dawn Barrera Other Provider [phone] Karlene, ANP- Mari Other Provider MD [...] José Luis Roberts MD Primary Care Provider [phone] Aichholz SCREEDMAN/LABORER, Adelaida Unavailable Miriam Suarez DO Unavailable Diana De Leon LPN Unavailable Unavailable Jace Graham Attending Unavailable Jace Graham Admitting Unavailable Aichholz, Adelaida J Primary Care Unavailable Aichholz, Adelaida J Primary Care Unavailable Eduardo Monk Attending Unavailab Eduardo Connolly Admitting Unavailab kayleen Garner MD, Familias Provider Primary Care Provi kellee Aichholz SCREEDMAN/LABORER, Adelaida Unavailable Jamee JAIMES, Syeda King Attending Unavailable Jamee JAIMES, Syeda King Attending Unavailable José Luis Roberts MD Primary Care Provider ASHLEIGH HINES Attending Unavailable AICHHOLZ, ADELAIDA Attending Unavailable ASHLEIGH HINES Attending Unavailable AICHHOLZ, ADELAIDA Attending Unavailable AICHHOLZ, ADELAIDA Attending Unavailable AICHHOLZ, ADELAIDA Attending Unavailable JR. HARRY GEORGE C Attending Unavaila ble AICHHOLZ, ADLEAIDA Attending Unavailable AICHHOLZ, ADELAIDA Attending Unavailable SONAM BROWN Attending Unavailable AICHHOLZ, ADELAIDA Attending Unavailable WINDNAHAMILTON SONAM C Attending Unavailable JUANY TREJO Attending Unavailable AICHHOLZ, ADELAIDA Attending Unavailable AICHHOLZ, ADELAIDA Attending Unavailable AICHHOLZ, ADELAIDA Attending Unavailable AICHHOLZ, ADELAIDA Attending Unavailable Allergies Allergy Classification Reported Allergen(s) Allergy Type Date of Onset Reaction(s) Facility (7 sources) Adhesive Tape; Translations: [ADHESIVE TAPE] Propensity to adverse reactions (disorder) 04-06-19 14 rash [facility] Repository (3 sources) levETIRAcetam; Translations: [KEPPRA] Drug Allergy 07-02-19 19 [facility] Repository (3 sources) milnacipran; Translations: [SAVELLA] Drug Allergy 03-14-20 13 [facility] Repository (1 source) Penicillin; Translations: [PENICILLIN] Drug Allergy 01-16-20 18 [facility] Repository (5 sources) Prochlorperazin e; Translations: [COMPAZINE] Drug Allergy 03-14-20 13 agitation [facility] Repository (18 sources) Tetracycline; Translations: [TETRACYCLINE] Drug Allergy 04-06-19 13 Hives, Unknown [facility] Repository (4 sources) Penicillins Drug allergy (disorder) 04-06-19 13 Unknown Reaction [facility] Repository (15 sources) levETIRAcetam; Translations: [levetiracetam] Drug Allergy 12-13-19 22 Hallucinations , Other [facility] (15 sources) milnacipran; Translations: [milnacipran] Drug Allergy 12-13-19 22 hives, Hallucinations , Other, Unknown [facility] (13 sources) Prochlorperazin e; Translations: [prochlorperazi ne] Drug Allergy 12-13-19 22 Unknown, Other [facility] (2 sources) Penicillin G Drug Allergy as a child [employer] [facility] [employer] Other (2 sources) Tetracaine Drug Allergy Unknown [employer] [facility] [employer] Other (10 sources) Penicillins Drug Intolerance 12-13-19 22 Anaphylaxis [facility] (10 sources) Other Propensity to adverse reactions 12-13-19 22 Other [facility] (10 sources) Wound Dressing Adhesive Drug Allergy 09-20-19 23 Rash, Unknown [facility] (6 sources) Eszopiclone Drug Allergy 09-21-19 24 Hallucinations , Anaphylaxis [facility] (1 source) Penicillin Drug Allergy 12-20-19 23 [facility] Repository (1 source) Penicillins Drug allergy (disorder) 03-23-20 23 [facility] Repository (1 source) Tetracaine Drug Allergy 12-20-19 23 [facility] Repository Medications Current Medications Medication Drug Class(es) [...] 5 MG tabl et Pt taking OTC ([email or web address]) Active biotin 1 MG caps ule Biotin [...] (CITRACAL + D PO) Pt taking OTC ([employer]) Active Calcium Citrate- Vitamin D (CITRACAL + D PO) Citracal + D 0 Active cariprazine 4.5 mg oral capsule (14 sources) Atypical Antipsychotic Start: 09-21-2023 take 1 capsule by mouth once daily Cariprazine HCl (Vraylar) 4.5 MG capsule Take 4.5 mg by mouth Daily 09/21/2023 Active Start: 11-17-2022 take 1 capsule by mo [facility] once daily Cariprazine (Vraylar) 4.5 mg [...] (14 sources) Angiotensin 2 Receptor Jim Start: 4 [...] sources) Magnesium 400 MG capsule Pt taking OTC([employer]) Active Magnesium 400 MG capsule magnesium 0 [...] e Melatonin 12 MG tablet Indications: from [email or web address] Take 1 tablet by mouth at bedtime Active take 2 tablets by mo ut once daily at bedtime Melatonin 10 MG 2 TABLETS Orally QHS Act hemant Melatonin 12 MG tablet dispe rsible (4 sources) Melatonin 12 MG tablet dispersible 1 (one) time each day at the same time. 0 Active Multiple Vitamins-Minerals ( BARIATRIC MULTIVITAMINS/IRON PO) (10 sources) Multiple Vitamin s-Minerals (BARIATRIC MULTIVITAMINS/IRON PO) Pt taking OTC ([email or web address]) Active Multiple Vitamin s-Minerals (BARIATRIC MULTIVITAMINS/IRON PO) Bariatric Multivitamins/Iron 0 Active Inhjhdabdvva-Emg-Nsss-Fa-Vit K (Bariatric Multivitamins) 45 mg iron- 800 mcg-120 mcg Capsule (2 sources) Start: 11-17-2022 take 1 capsule by mouth once daily Jkbzfqwgjdwx-Xve-Mpdb-Fa-Vit K (Bariatric Multivitamins) 45 mg iron- 800 mcg-120 mcg Capsule Active 1 CAP PO Daily November 16, 2022 11:00pm Start: 11-17-2022 take 1 capsule by mo uth once daily Oueuywlapejf-Ing-Ghfw-Fa-Vit K (Bariatri c Multivitamins) 45 mg iron- 800 mcg-120 mcg Capsule Active 1 CAP PO Daily November 17, 2022 12:00am nystatin 100 unt/mg topical powder (10 sources) Polyene Antifungal nystatin (Myc ostatin) 320687 UNIT/GM powder Apply 1 application topically in the morning and 1 application before bedtime. 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 Blood, UA Negative Negative - 50 Kranthi/mcL [facility] Clarity, UA Clear [facility] Color, UA Dark Tania [facility] Glucose, UA Negative Negative - 1999(110) ++++ mg/dL [facility] Interpretation and review of laboratory results Abnormal [facility] Ketones, UA Negative Negative - 160(16) ++++ mg/dL [facility] Leukocytes, UA Trace Negative - 500+++ Radha/mcL [facility] Nitrite, UA Negative Negative - Positive [facility] pH, UA 5.5 5 - [address] [facility] Protein, UA Negative Negative - 1999(20) ++++ mg/dL [facility] Spec Grav, UA 1.025 1 - 1.[address] [facility] Urobilinogen, UA 0.2 0.2 - 12 mg/dL [facility] MHPT CULT,URINEon 01-23-2024 Interpretation and review of laboratory results [facility] Spec[facility] Description .CLEAN CATCH [facility]INE [facility] Culture ESCHERICHIA COLI >100,000 CFU/ML [facility] STREPTOCOCCI, BETA HEMOLYTIC GROUP B 10 to 50,000 CFU/ML [facility] Report Status FINAL 01/23/[address] [facility] MHPT CULT,URINE SUSCEPTIBILITY [facility] Organism ESCHERICHIA COLI [facility] Method CROW [facility] Ampicillin 16 INTERMEDIATE Intermediate [facility] Cefazolin <=4 SUSCEPTIBLE Susceptible [facility] Cefazolin sensitivit y results can be used to predict the effectiveness of oral Susceptible [facility] cephalosporins (eg. Cephalexin) in uncomplicated Urinary Tract Infections due Susceptible [facility] MHPT CULT,URINE to E. coli, K. pneumoniae, and P. mirabilis Susceptible [facility] MHPT CULT,URINE Ceftriaxone <=0.25 SUSCEPTIBLE Susceptible [facility] Negative Susceptible [facility] Gentamicin <=1 SUSCEPTIBLE Susceptible [facility] Levofloxacin <=0.12 SUSCEPTIBLE Susceptible [facility] Nitrofurantoin <=16 SUSCEPTIBLE Susceptible [facility] Piperacillin/Tazobac ta m <=4 SUSCEPTIBLE Susceptible [facility] Tobramycin <=1 SUSCEPTIBLE Susceptible [facility] Trimethoprim/Sulfa <=20 SUSCEPTIBLE Susceptible [facility] Original Ordering Provider: RICHA DAVENPORT [facility] ALL BASIC METABOLIC PANELon 01-05-2024 Anion gap [Moles/Vol] 11.1 mmol/L [facility] Calcium [Mass/Vol] 9.2 mg/dL 8.5 - 10. 1 mg/dL [facility] Chloride [Moles/Vol] 105 mmol/L 98 - 10 7 mmol/L [facility] CO2 [Moles/Vol] 28.0 mmol/L 21.0 - 32.0 mmol/L [facility] Creatinine [Mass/Vol] 1.08 mg/dL High 0.55 - 1.02 mg/dL [facility] GFR/1.73 sq M.predicted CKD-EPI (S/P/Bld) [Vol rate/Area] >60 60 - PINF [facility] Glucose [Mass/Vol] 92 mg/dL 74 - 106 mg/dL [facility] Interpretation and review of laboratory results Abnormal [facility] Potassium [Moles/Vol] 4.1 mmol/L 3.5 - 5.1 mmol/L [facility] Sodium [Moles/Vol] 140 mmol/L 136 - 145 mmol/L [facility] TBH EGFR-NON AF SAMMARINESE 51 Low 60 - PINF [facility] Urea nitrogen [Mass/Vol] 17.0 mg/dL 7.0 - 18.0 mg/dL [facility] Urea nitrogen/Creatinine [Mass ratio] 15.7 mg/mg [facility] Amphetamine Screen Ql (U)Ord ered By: Jace Graham on 03-23-2023 Amphetamines Ql (U) Negative Negative [facility] Barbiturates [Presence] in U rine by Screen methodOrdered By: Jace Graham on 03-23-2023 Barbiturates Screen Ql (U) Negative Negative [facility] Benzodiazepines Screen Ql (U )Ordered By: Jace Graham on 03-23-2023 Benzodiazepines Ql (U) Negative Negative [facility] Benzoylecgonine [Presence] i n Urine by Screen methodOrdered By: Jace Graham on 03-23-2023 Benzoylecgonine Screen Ql (U) Negative Negative [facility] Cannabinoids [Presence] in U rine by Screen methodOrdered By: Jace Graham on 03-23-2023 Cannabinoids Screen Ql (U) Negative Negative [facility] Comment on above: These are unconfirme d results and should not be used for legal purposes. Drug Cut-Off Concentration: AMPH 1000 ng/mL ELKIN 200 ng/mL ATIYA 200 ng/mL COCM 300 ng/mL OP 300 ng/mL PCP 25 ng/mL THC 20 ng/mL Drug Screen,Urineon 03-23-20 Amphetamine Screen,Urine Negative Normal Negative [facility] Comment on above: Performed By: #### U RDS #### [address] Barbiturate Screen,Urine Negative Normal Negative [facility] Comment on above: Performed By: #### U RDS #### [address] Benzodiazepines Screen,Urine Negative Normal Negative [facility] Comment on above: Performed By: #### U RDS #### [address] Cannabinoid Screen,Urine Negative Normal Negative [facility] Comment on above: Result Comment: Thes e are unconfirmed results and should not be used for legal purposes. Drug Cut-Off Concentration: AMPH 1000 ng/mL ELKIN 200 ng/mL ATIYA 200 ng/mL COCM 300 ng/mL OP 300 ng/mL PCP 25 ng/mL THC 20 ng/mL PERFORMED BY: [place] [address] PATHOLOGIST SECTION LEADER SCREEN PRINTING AN CURRY M.D. Performed By: #### U RDS #### [address] Cocaine Screen,Urine Negative Normal Negative [facility] Comment on above: Performed By: #### U RDS #### [address] Opiate Screen,Urine Negative Normal Negative [facility] Comment on above: Performed By: #### U RDS #### [address] Phencyclidine Screen,Urine Negative Normal Negative [facility] Comment on above: Performed By: #### U RDS #### [address] Opiates [Presence] in Urine by Screen methodOrdered By: Jace Graham on 03-23-2023 Opiates Screen Ql (U) Negative Negative [facility] Phencyclidine Screen Ql (U)O rdered By: Jace Graham on 03-23-2023 Phencyclidine Ql (U) Negative Negative [facility] Cholesterol [Mass/volume] in Serum or PlasmaOrdered By: Eduardo Monk on 11-18-2022 Cholesterol [Mass/Vol] 159 mg/dL 140-[address] [facility] Comment on above: Chol less than 200 m g/dl low riskChol 201-239 mg/dl borderline riskChol 240 mg/dl and greater high risk Cholesterol in LDL Calc [Mas s/Vol]Ordered By: Eduardo Monk on 11-18-2022 Cholesterol in LDL [Mass/Vol] 84 mg/dL 0-100 [facility] Comment on above: LDL ATP III CLASSIFI CATIONLDL less than 100 mg/dL OptimalLDL 100-129 mg/dL Near or above optimalLDL 130-159 mg/dL Borderline highLDL 160-189 mg/dL HighLDL greater than 189 mg/dL Very high Cholesterol in VLDL Calc [Ma ss/Vol]Ordered By: Eduardo Monk on 11-18-2022 Cholesterol in VLDL [Mass/Vol] 28 mg/dL [facility] Serum or plasma high density lipoprotein (HDL) cholesterol measurementOrdered By: Eduardo Monk on 11-18-2022 Cholesterol in HDL [Mass/Vol] 46 mg/dL 23-92 [facility] Comment on above: HDL CHOL ATP-III CLA SSIFICATION Cardiovascular RiskHDL > or equal to 60 mg/dL LOWHDL < 40 mg/dL HIGH Serum or plasma total choles terol/high density lipoprotein (HDL) cholesterol mass ratOrdered By: Eduardo Monk on 11-18-2022 Cholesterol.total/Chol esterol in HDL [Mass ratio] 3.5 {ratio} <5.0 [facility] Thyrotropin [Units/volume] i n Serum or PlasmaOrdered By: Eduardo Monk on 11-18-2022 TSH Qn 2.13 m[IU]/L 0.45-5.33 [facility] Triglyceride [Mass/volume] i n Serum or PlasmaOrdered By: Eduardo Monk on 11-18-2022 Triglyceride [Mass/Vol] 144 mg/dL 0-149 [facility] Comment on above: TRIG ATP III CLASSIF ICATIONTRIG less than 150 mg/dL NormalTRIG 150-199 mg/dL Borderline highTRIG 200-500 mg/dL High TRIG greater than 500 mg/dL Very highStandard traceable to the Center for Disease Conrtrol and Prevention (CDC) test method. Vitamin D+Metabolites [Mass/ volume] in Serum or PlasmaOrdered By: Eduardo Monk on 11-18-2022 Vitamin D+Metabolites [Mass/Vol] 50.4 ng/mL 30-100 [facility] Comment on above: VITAMIN D STATUS 25( OH)VITAMIN D RANGE (ng/mL) Deficient <20 Insufficient 20 to <30Sufficient 30 to 100Reference: Bin MF,Lakshmi CABRERA, Cristian SMART, et al. Evaluation,treatment, and prevention of vitamin D deficiency; an Endocrine Society clinical practice guideline. JCEM. 2010; 96(7):1911-30. CBC AUTO DIFFon 07-25-2022 BASO # 0.1 103/ul Normal 0.0-0.1 [facility] Comment on above: Performed By: #### A 1C #### [facility] [address] [place] [address] Dr. Bebeto Alvarado Basophils/100 WBC (Bld) 0.6 % Normal 0.2-2.0 [facility] Comment on above: Performed By: #### A 1C #### [facility] [address] [place] [address] Dr. Bebeto Alvarado EO # 0.2 103/ul Normal 0.0-0.7 [facility] Comment on above: Performed By: #### A 1C #### [facility] [address] [address] [address] Bebeto Alvarado Eosinophils/100 WBC (Bld) 2.3 % Normal 0.9-7.0 [facility] Comment on above: Performed By: #### A 1C #### [facility] [address] [address] [address] Bebeto Alvarado Erythrocyte distribution width (RBC) [Ratio] 13.8 % Normal 11.0-15.0 [facility] Comment on above: Performed By: #### A 1C #### [facility] [address] [place] [address] Dr. Bebeto Alvarado Hematocrit (Bld) [Volume fraction] 41.2 % Normal 36.0-48.0 [facility] Comment on above: Performed By: #### A 1C #### [facility] [address] [place] [address] Dr. Bebeto Alvarado Hemoglobin (Bld) [Mass/Vol] 13.2 g/dL Normal 12.0-16.0 [facility] Comment on above: Performed By: #### A 1C #### [facility] [address] [place] [address] Dr. Bebeto Alvarado IG # 0.03 10e3/ul Normal 0.00-0.03 [facility] Comment on above: Performed By: #### A 1C #### [facility] [address] [place] [address] Dr. Bebeto Alvarado IG % 0.4 % Normal 0.0-0.5 [facility] Comment on above: Performed By: #### A 1C #### [facility] [address] [place] [address] Dr. Bebeto Alvarado LYMPH # 2.1 103/ul Normal 1.2-3.8 [facility] Comment on above: Performed By: #### A 1C #### [facility] [address] [place] [address] Dr. Bebeto Avlarado Lymphocytes/100 WBC (Bld) 25.9 % Normal 20.5-60.0 [facility] Comment on above: Performed By: #### A 1C #### [facility] [address] [place] [address] Dr. Bebeto Alvarado MANUAL DIFF REQ NO Normal [facility] Comment on above: Performed By: #### A 1C #### [facility] [address] [place] [address] Dr. Bebeto Alvarado MCH (RBC) [Entitic mass] 28.0 pg Normal 26.7-34.0 [facility] Comment on above: Performed By: #### A 1C #### [facility] [address] [place] [address] Dr. Bebeto Alvarado MCHC (RBC) [Mass/Vol] 32.0 g/dL Normal 29.9-35.2 [facility] Comment on above: Performed By: #### A 1C #### [facility] [address] [address] [address] Bebeto Alvarado MCV (RBC) [Entitic vol] 87.5 fL Normal 81.0-99.0 [facility] Comment on above: Performed By: #### A 1C #### [facility] [address] [address] [address] Bebeto Alvarado MONO # 0.5 103/ul Normal 0.3-0.8 [facility] Comment on above: Performed By: #### A 1C #### [facility] [address] [address] [address] Bebeto Alvarado Monocytes/100 WBC (Bld) 6.6 % Normal 1.7-12.0 [facility] Comment on above: Performed By: #### A 1C #### [facility] [address] [place] [address] Dr. Bebeto Alvarado NEUT # 5.1 103/ul Normal 1.4-6.5 [facility] Comment on above: Performed By: #### A 1C #### [facility] [address] [place] [address] Dr. Bebeto Alvarado Neutrophils/100 WBC (Bld) 64.2 % Normal 43.0-75.0 [facility] Comment on above: Performed By: #### A 1C #### [facility] [address] [address] [address] Bebeto Alvarado Platelet mean volume (Bld) [Entitic vol] 11.2 fL Normal 9.5-13.5 [facility] Comment on above: Performed By: #### A 1C #### [facility] [address] [address] [address] Bebeto Alvarado PLT 252 103/ul Normal 150-450 [facility] Comment on above: Performed By: #### A 1C #### [facility] [address] [address] [address] Bebeto Alvarado RBC 4.71 106/ul Normal 4.20-5.40 [facility] Comment on above: Performed By: #### A 1C #### [facility] [address] [address] [address] Bebeto Alvarado WBC 8.0 103/ul Normal 4.0-11.0 [facility] Comment on above: Performed By: #### A 1C #### [facility] [address] [address] [address] Bebeto Alvarado GLYCOHEMOGLOBIN A1Con 2022 ADA RECOMMENDATION SEE BELOW Normal [facility] Comment on above: Result Comment: ADA RECOMMENDED LIMIT 4.0 - 6.0 ADA THERAPEUTIC TARGET < 7.0 ACTION SUGGESTED > 7.0 Performed By: #### A 1C #### [facility] [address] [address] [address] Bebeto Alvarado Glucose [Mass/Vol] 114 mg/dL Normal [facility] Comment on above: Performed By: #### A 1C #### [facility] [address] [place] [address] Dr. Bebeto Alvarado HbA1c (Bld) [Mass fraction] 5.6 % Normal 4.5-6.2 [facility] Comment on above: Performed By: #### A 1C #### [facility] [address] [address] [address] Bebeto Alvarado IRONon 07-25-2022 Iron [Mass/Vol] 60.0 ug/dL Normal 50.0-170.0 [facility] Comment on above: Performed By: #### V ITB12, IRON #### [facility] [address] [address] [address] Bebeto Alvarado LIPID PROFILEon 07-25-2022 CHOL-HDL RATIO NORM SEE BELOW Normal [facility] Comment on above: Result Comment: 3.3 - 4.4 LOW RISK 4.4 - 7.1 AVERAGE RISK 7.1 - 11.0 MODERATE RISK >11.0 HIGH RISK Performed By: #### C MP, LIPID #### [facility] [address] [place] [address] Dr. Bebeto Alvarado Cholesterol [Mass/Vol] 144 mg/dL Normal <=200 [facility] Comment on above: Performed By: #### C MP, LIPID #### [facility] [address] [address] [address] Bebeto Alvarado Cholesterol in HDL [Mass/Vol] 39 mg/dL Critically low 40-60 [facility] Comment on above: Performed By: #### C MP, LIPID #### [facility] [address] [address] [address] Bebeto Alvarado Cholesterol in LDL [Mass/Vol] 74.6 mg/dL Normal [facility] Comment on above: Performed By: #### C MP, LIPID #### [facility] [address] [address] [address] Bebeto Alvarado Cholesterol.total/Chol esterol in HDL [Mass ratio] 3.7 {ratio} Normal [facility] Comment on above: Performed By: #### C MP, LIPID #### [facility] [address] [place] [address] Dr. Bebeto Alvarado HDL NORMAL > or = 60 mg/dl - LO W CARDIOVASCULAR RISK <40 mg/dl - HIGH CARDIOVASCULAR RISK Normal [facility] Comment on above: Performed By: #### C MP, LIPID #### [facility] [address] [address] [address] Bebeto Alvarado LDL CALC NORMAL SEE BELOW Normal [facility] Comment on above: Result Comment: <100 mg/dl OPTIMAL 100 - 129 mg/dl NEAR OR ABOVE OPTIMAL 130 - 159 mg/dl BORDERLINE HIGH 160 - 189 mg/dl HIGH >190 mg/dl VERY HIGH Performed By: #### C MP, LIPID #### [facility] [address] [address] [address] Bebeto Alvarado Triglyceride [Mass/Vol] 152 mg/dL Critically high <=150 [facility] Comment on above: Performed By: #### C MP, LIPID #### [facility] [address] [place] [address] Dr. Bebeto Alvarado VLDL CALC 30.4 mg/dL Normal [facility] Comment on above: Performed By: #### C MP, LIPID #### [facility] [address] [address] [address] Bebeto Alvarado PROF 14(COMP METB)on 023 Albumin [Mass/Vol] 3.7 g/dL Normal 3.4-5.0 [facility] Comment on above: Performed By: #### C MP, LIPID #### [facility] [address] [place] [address] Dr. Bebeto Alvarado Albumin/Globulin [Mass ratio] 0.9 {ratio} Normal [facility] Comment on above: Performed By: #### C MP, LIPID #### [facility] [address] [place] [address] Dr. Bebeto Alvarado ALP [Catalytic activity/Vol] 90 U/L Normal 46-116 [facility] Comment on above: Performed By: #### C MP, LIPID #### [facility] [address] [place] [address] Dr. Bebeto Alvarado ALT [Catalytic activity/Vol] 38 U/L Normal 14-59 [facility] Comment on above: Performed By: #### C MP, LIPID #### [facility] [address] [place] [address] Dr. Bebeto Alvarado Anion gap [Moles/Vol] 12.1 mmol/L Normal [facility] Comment on above: Performed By: #### C MP, LIPID #### [facility] [address] [place] [address] Dr. Bebeto Alvarado AST [Catalytic activity/Vol] 26 U/L Normal 15-37 [facility] Comment on above: Performed By: #### C MP, LIPID #### [facility] [address] [place] [address] Dr. Bebeto Alvarado Bilirubin [Mass/Vol] 0.3 mg/dL Normal 0.2-1.0 [facility] Comment on above: Performed By: #### C MP, LIPID #### [facility] [address] [place] [address] Dr. Bebeto Alvarado Calcium [Mass/Vol] 9.3 mg/dL Normal 8.5-10.1 [facility] Comment on above: Performed By: #### C MP, LIPID #### [facility] [address] [place] [address] Dr. Bebeto Alvarado Chloride [Moles/Vol] 107 mmol/L Normal 98-107 [facility] Comment on above: Performed By: #### C MP, LIPID #### [facility] [address] [place] [address] Dr. Bebeto Alvarado CO2 [Moles/Vol] 27.9 mmol/L Normal 21.0-32.0 [facility] Comment on above: Performed By: #### C MP, LIPID #### [facility] [address] [place] [address] Dr. Bebeto Alvarado Creatinine [Mass/Vol] 0.95 mg/dL Normal 0.55-1.02 [facility] Comment on above: Performed By: #### C MP, LIPID #### [facility] [address] [place] [address] Dr. Bebeto Alvarado EGFR-AF SAMMARINESE >60 Normal >=60 [facility] Comment on above: Performed By: #### C MP, LIPID #### [facility] [address] [place] [address] Dr. Bebeto Alvarado EGFR-NON AF SAMMARINESE 60 mL/min/1.73m2 Normal >=60 [facility] Comment on above: Performed By: #### C MP, LIPID #### [facility] [address] [place] [address] Dr. Bebeto Alvarado Globulin (S) [Mass/Vol] 3.9 g/dL Normal [facility] Comment on above: Performed By: #### C MP, LIPID #### [facility] [address] [place] [address] Dr. Bebeto Alvarado Glucose [Mass/Vol] 108 mg/dL Critically high 74-106 [facility] Comment on above: Performed By: #### C MP, LIPID #### [facility] [address] [place] [address] Dr. Bebeto Alvarado Potassium [Moles/Vol] 4.0 mmol/L Normal 3.5-5.1 [facility] Comment on above: Performed By: #### C MP, LIPID #### [facility] [address] [place] [address] Dr. Bebeto Alvarado Protein [Mass/Vol] 7.6 g/dL Normal 6.4-8.2 [facility] Comment on above: Performed By: #### C MP, LIPID #### [facility] [address] [place] [address] Dr. Bebeto Alvarado Sodium [Moles/Vol] 143 mmol/L Normal 136-145 [facility] Comment on above: Performed By: #### C MP, LIPID #### [facility] [address] [place] [address] Dr. Bebeto Alvarado Urea nitrogen [Mass/Vol] 15.0 mg/dL Normal 7.0-18.0 [facility] Comment on above: Performed By: #### C MP, LIPID #### [facility] [address] [place] [address] Dr. Bebeto Alvarado Urea nitrogen/Creatinine [Mass ratio] 15.8 mg/mg Normal [facility] Comment on above: Performed By: #### C MP, LIPID #### [facility] [address] [place] [address] Dr. Bebeto Alvarado UA RANDOM W/MICROSCOPICon BACTERIA NONE SEEN Normal NONE SEEN [facility] Comment on above: Performed By: #### A 1C #### [facility] [address] [place] [address] Dr. Bebeto Alvarado Bilirubin Ql (U) Negative Normal NEGATIVE [facility] Comment on above: Performed By: #### A 1C #### [facility] [address] [place] [address] Dr. Bebeto Alvarado CAST NONE SEEN Normal NONE SEEN [facility] Comment on above: Performed By: #### A 1C #### [facility] [address] [place] [address] Dr. Bebeto Alvarado Clarity (U) CLEAR Normal CLEAR [facility] Comment on above: Performed By: #### A 1C #### [facility] [address] [place] [address] Dr. Bebeto Alvarado Color (U) YELLOW Normal YELLOW [facility] Comment on above: Performed By: #### A 1C #### [facility] [address] [place] [address] Dr. Bebeto Alvarado Crystals LM Nom (Urine sed) NONE SEEN Normal NONE SEEN [facility] Comment on above: Performed By: #### A 1C #### [facility] [address] [place] [address] Dr. Bebeto Alvarado Epithelial cells LM Ql (Urine sed) NONE SEEN Normal NONE SEEN /RARE [facility] Comment on above: Performed By: #### A 1C #### [facility] [address] [place] [address] Dr. Bebeto Alvarado Glucose Ql (U) Negative Normal NEGATIVE [facility] Comment on above: Performed By: #### A 1C #### [facility] [address] [place] [address] Dr. Bebeto Alvarado Hemoglobin Ql (U) Negative Normal NEGATIVE [facility] Comment on above: Performed By: #### A 1C #### [facility] [address] [place] [address] Dr. Bebeto Alvarado Ketones Ql (U) Negative Normal NEGATIVE [facility] Comment on above: Performed By: #### A 1C #### [facility] [address] [place] [address] Dr. Bebeto Alvarado LEUKOCYTES Negative Normal NEGATIVE [facility] Comment on above: Performed By: #### A 1C #### [facility] [address] [place] [address] Dr. Bebeto Alvarado MUCOUS NONE SEEN Normal NONE SEEN [facility] Comment on above: Performed By: #### A 1C #### [facility] [address] [place] [address] Dr. Bebeto Alvarado Nitrite Ql (U) Negative Normal NEGATIVE [facility] Comment on above: Performed By: #### A 1C #### [facility] [address] [place] [address] Dr. Bebeto Alvarado pH (U) 5.5 [pH] Normal 5-9 [facility] Comment on above: Performed By: #### A 1C #### [facility] [address] [place] [address] Dr. Bebeto Alvarado RBC NONE SEEN Abnormal 0-2 [facility] Comment on above: Performed By: #### A 1C #### [facility] [address] [place] [address] Dr. Bebeto Alvarado SPEC GRAVITY 1.030 Abnormal 1.005-<=1.02 5 [facility] Comment on above: Performed By: #### A 1C #### [facility] [address] [place] [address] Dr. Bebeto Alvarado UA PROTEIN Negative Normal NEGATIVE/ TRACE [facility] Comment on above: Performed By: #### A 1C #### [facility] [address] [place] [address] Dr. Bebeto Alvarado Urobilinogen Qn (U) 0.2 {Katerin'U}/dL Normal 0.2 - 1. 0 [facility] Comment on above: Performed By: #### A 1C #### [facility] [address] [place] [address] Dr. Bebeto Alvarado WBC NONE SEEN Normal NONE SEEN [facility] Comment on above: Performed By: #### A 1C #### [facility] [address] [place] [address] Dr. Bebeto Alvarado VITAMIN B12on 07-25-2022 Cobalamin (Vitamin B12) [Mass/Vol] 1684.0 pg/mL Critically high 193.0-986.0 [facility] Comment on above: Performed By: #### V ITB12, IRON #### [facility] [address] [place] [address] Dr. Bebeto Alvarado PROF CHEM 8 (BAS METB)on Anion gap [Moles/Vol] 12.2 mmol/L Normal [facility] Comment on above: Performed By: #### B MP #### [facility] [address] [place] [address] Dr. Bebteo Alvarado Calcium [Mass/Vol] 8.9 mg/dL Normal 8.5-10.1 [facility] Comment on above: Performed By: #### B MP #### [facility] [address] [place] [address] Dr. Bebeto Alvarado Chloride [Moles/Vol] 105 mmol/L Normal 98-107 [facility] Comment on above: Performed By: #### B MP #### [facility] [address] [address] [address] Bebeto Alvarado CO2 [Moles/Vol] 29.6 mmol/L Normal 21.0-32.0 [facility] Comment on above: Performed By: #### B MP #### [facility] [address] [address] [address] Bebeto Alvarado Creatinine [Mass/Vol] 0.95 mg/dL Normal 0.55-1.02 [facility] Comment on above: Performed By: #### B MP #### [facility] [address] [address] [address] Bebeto Alvarado EGFR-AF SAMMARINESE >60 Normal >=60 [facility] Comment on above: Performed By: #### B MP #### [facility] [address] [address] [address] Bebeto Alvarado EGFR-NON AF SAMMARINESE 60 mL/min/1.73m2 Normal >=60 [facility] Comment on above: Performed By: #### B MP #### [facility] [address] [address] [address] Bebeto Alvarado Glucose [Mass/Vol] 101 mg/dL Normal 74-106 [facility] Comment on above: Performed By: #### B MP #### [facility] [address] [address] [address] Bebeto Alvarado Potassium [Moles/Vol] 3.8 mmol/L Normal 3.5-5.1 [facility] Comment on above: Performed By: #### B MP #### [facility] [address] [address] [address] Bebeto Alvarado Sodium [Moles/Vol] 143 mmol/L Normal 136-145 [facility] Comment on above: Performed By: #### B MP #### [facility] [address] [address] [address] Bebeto Alvarado Urea nitrogen [Mass/Vol] 16.0 mg/dL Normal 7.0-18.0 [facility] Comment on above: Performed By: #### B MP #### [facility] [address] [place] [address] Dr. Bebeto Alvarado Urea nitrogen/Creatinine [Mass ratio] 16.8 mg/mg Normal [facility] Comment on above: Performed By: #### B MP #### [facility] [address] [place] [address] Dr. Bebeto Alvarado CBC AUTO DIFFon 11-21-2021 BASO # 0.1 103/ul Normal 0.0-0.1 [facility] Comment on above: Performed By: #### A 1C #### [facility] [address] [place] [address] Dr. Bebeto Alvarado Basophils/100 WBC (Bld) 1.0 % Normal 0.2-2.0 [facility] Comment on above: Performed By: #### A 1C #### [facility] [address] [place] [address] Dr. Bebeto Alvardao EO # 0.2 103/ul Normal 0.0-0.7 [facility] Comment on above: Performed By: #### A 1C #### [facility] [address] [place] [address] Dr. Bebeto Alvarado Eosinophils/100 WBC (Bld) 3.3 % Normal 0.9-7.0 [facility] Comment on above: Performed By: #### A 1C #### [facility] [address] [place] [address] Dr. Bebeto Alvarado Erythrocyte distribution width (RBC) [Ratio] 13.8 % Normal 11.0-15.0 [facility] Comment on above: Performed By: #### A 1C #### [facility] [address] [place] [address] Dr. Bebeto Alvarado Hematocrit (Bld) [Volume fraction] 38.8 % Normal 36.0-48.0 [facility] Comment on above: Performed By: #### A 1C #### [facility] [address] [place] [address] Dr. Bebeto Alvarado Hemoglobin (Bld) [Mass/Vol] 12.5 g/dL Normal 12.0-16.0 [facility] Comment on above: Performed By: #### A 1C #### [facility] [address] [place] [address] Dr. Bebeto Alvarado IG # 0.02 10e3/ul Normal 0.00-0.03 [facility] Comment on above: Performed By: #### A 1C #### [facility] [address] [place] [address] Dr. Bebeto Alvarado IG % 0.3 % Normal 0.0-0.5 [facility] Comment on above: Performed By: #### A 1C #### [facility] [address] [place] [address] Dr. Bebeto Alvarado LYMPH # 1.9 103/ul Normal 1.2-3.8 [facility] Comment on above: Performed By: #### A 1C #### [facility] [address] [place] [address] Dr. Bebeto Alvarado Lymphocytes/100 WBC (Bld) 29.6 % Normal 20.5-60.0 [facility] Comment on above: Performed By: #### A 1C #### [facility] [address] [place] [address] Dr. Bebeto Alvarado MANUAL DIFF REQ NO Normal [facility] Comment on above: Performed By: #### A 1C #### [facility] [address] [place] [address] Dr. Bebeto Alvarado MCH (RBC) [Entitic mass] 28.0 pg Normal 26.7-34.0 [facility] Comment on above: Performed By: #### A 1C #### [facility] [address] [place] [address] Dr. Bebeto Alvarado MCHC (RBC) [Mass/Vol] 32.2 g/dL Normal 29.9-35.2 [facility] Comment on above: Performed By: #### A 1C #### [facility] [address] [place] [address] Dr. Bebeto Alvarado MCV (RBC) [Entitic vol] 86.8 fL Normal 81.0-99.0 [facility] Comment on above: Performed By: #### A 1C #### [facility] [address] [place] [address] Dr. Bebeto Alvarado MONO # 0.4 103/ul Normal 0.3-0.8 [facility] Comment on above: Performed By: #### A 1C #### [facility] [address] [place] [address] Dr. Bebeto Alvarado Monocytes/100 WBC (Bld) 5.7 % Normal 1.7-12.0 [facility] Comment on above: Performed By: #### A 1C #### [facility] [address] [place] [address] Dr. Bebeto Alvarado NEUT # 3.8 103/ul Normal 1.4-6.5 [facility] Comment on above: Performed By: #### A 1C #### [facility] [address] [place] [address] Dr. Bebeto Alvarado Neutrophils/100 WBC (Bld) 60.1 % Normal 43.0-75.0 [facility] Comment on above: Performed By: #### A 1C #### [facility] [address] [place] [address] Dr. Bebeto Alvarado Platelet mean volume (Bld) [Entitic vol] 11.0 fL Normal 9.5-13.5 [facility] Comment on above: Performed By: #### A 1C #### [facility] [address] [place] [address] Dr. Bebeto Alvarado PLT 264 103/ul Normal 150-450 [facility] Comment on above: Performed By: #### A 1C #### [facility] [address] [place] [address] Dr. Bebeto Alvarado RBC 4.47 106/ul Normal 4.20-5.40 [facility] Comment on above: Performed By: #### A 1C #### [facility] [address] [place] [address] Dr. Bebeto Alvarado WBC 6.3 103/ul Normal 4.0-11.0 [facility] Comment on above: Performed By: #### A 1C #### [facility] [address] [place] [address] Dr. Bebeto Alvarado GLYCOHEMOGLOBIN A1Con 2021 ADA RECOMMENDATION SEE BELOW Normal [facility] Comment on above: Result Comment: ADA RECOMMENDED LIMIT 4.0 - 6.0 ADA THERAPEUTIC TARGET < 7.0 ACTION SUGGESTED > 7.0 Performed By: #### A 1C #### [facility] [address] [address] [address] Bebeto Alvarado Glucose [Mass/Vol] 105 mg/dL Normal [facility] Comment on above: Performed By: #### A 1C #### [facility] [address] [address] [address] Bebeto Alvarado HbA1c (Bld) [Mass fraction] 5.3 % Normal 4.5-6.2 [facility] Comment on above: Performed By: #### A 1C #### [facility] [address] [place] [address] Dr. Bebeto Alvarado IRONon 11-21-2021 Iron [Mass/Vol] 59.0 ug/dL Normal 50.0-170.0 [facility] Comment on above: Performed By: #### A 1C #### [facility] [address] [place] [address] Dr. Bebeto Alvarado LIPID PROFILEon 11-21-2021 CHOL-HDL RATIO NORM SEE BELOW Normal [facility] Comment on above: Result Comment: 3.3 - 4.4 LOW RISK 4.4 - 7.1 AVERAGE RISK 7.1 - 11.0 MODERATE RISK >11.0 HIGH RISK Performed By: #### C MP, LIPID #### [facility] [address] [place] [address] Dr. Bebeto Alvarado Cholesterol [Mass/Vol] 139 mg/dL Normal <=200 [facility] Comment on above: Performed By: #### C MP, LIPID #### [facility] [address] [place] [address] Dr. Bebeto Alvarado Cholesterol in HDL [Mass/Vol] 35 mg/dL Critically low 40-60 [facility] Comment on above: Performed By: #### C MP, LIPID #### [facility] [address] [place] [address] Dr. Bebeto Alvarado Cholesterol in LDL [Mass/Vol] 69.6 mg/dL Normal [facility] Comment on above: Performed By: #### C MP, LIPID #### [facility] [address] [address] [address] Bebeto Alvarado Cholesterol.total/Chol esterol in HDL [Mass ratio] 4.0 {ratio} Normal [facility] Comment on above: Performed By: #### C MP, LIPID #### [facility] [address] [address] [address] Bebeto Alvarado HDL NORMAL > or = 60 mg/dl - LO W CARDIOVASCULAR RISK <40 mg/dl - HIGH CARDIOVASCULAR RISK Normal [facility] Comment on above: Performed By: #### C MP, LIPID #### [facility] [address] [address] Dr. Bebeto Alvarado LDL CALC NORMAL SEE BELOW Normal [facility] Comment on above: Result Comment: <100 mg/dl OPTIMAL 100 - 129 mg/dl NEAR OR ABOVE OPTIMAL 130 - 159 mg/dl BORDERLINE HIGH 160 - 189 mg/dl HIGH >190 mg/dl VERY HIGH Performed By: #### C MP, LIPID #### [facility] [address] [address] [address] Bebeto Alvarado Triglyceride [Mass/Vol] 172 mg/dL Critically high <=150 [facility] Comment on above: Performed By: #### C MP, LIPID #### [facility] [address] [address] [address] Bebeto Alvarado VLDL CALC 34.4 mg/dL Normal [facility] Comment on above: Performed By: #### C MP, LIPID #### [facility] [address] [address] [address] Bebeto Alvarado PROF 14(COMP METB)on 022 Albumin [Mass/Vol] 3.8 g/dL Normal 3.4-5.0 [facility] Comment on above: Performed By: #### C MP, LIPID #### [facility] [address] [address] [address] Bebeto Alvarado Albumin/Globulin [Mass ratio] 1.1 {ratio} Normal [facility] Comment on above: Performed By: #### C MP, LIPID #### [facility] [address] [address] [address] Bebeto Alvarado ALP [Catalytic activity/Vol] 96 U/L Normal 46-116 [facility] Comment on above: Performed By: #### C MP, LIPID #### [facility] [address] [address] [address] Bebeto Alvarado ALT [Catalytic activity/Vol] 25 U/L Normal 14-59 [facility] Comment on above: Performed By: #### C MP, LIPID #### [facility] [address] [address] [address] Bebeto Alvarado Anion gap [Moles/Vol] 11.8 mmol/L Normal [facility] Comment on above: Performed By: #### C MP, LIPID #### [facility] [address] [address] [address] Bebeto Alvarado AST [Catalytic activity/Vol] 20 U/L Normal 15-37 [facility] Comment on above: Performed By: #### C MP, LIPID #### [facility] [address] [address] [address] Bebeto Alvarado Bilirubin [Mass/Vol] 0.4 mg/dL Normal 0.2-1.0 [facility] Comment on above: Performed By: #### C MP, LIPID #### [facility] [address] [address] [address] Bebeto Alvarado Calcium [Mass/Vol] 8.8 mg/dL Normal 8.5-10.1 [facility] Comment on above: Performed By: #### C MP, LIPID #### [facility] [address] [address] [address] Bebeto Alvarado Chloride [Moles/Vol] 106 mmol/L Normal 98-107 [facility] Comment on above: Performed By: #### C MP, LIPID #### [facility] [address] [address] [address] Bebeto Alvarado CO2 [Moles/Vol] 27.0 mmol/L Normal 21.0-32.0 [facility] Comment on above: Performed By: #### C MP, LIPID #### [facility] [address] [address] [address] Bebeto Alvarado Creatinine [Mass/Vol] 0.97 mg/dL Normal 0.55-1.02 [facility] Comment on above: Performed By: #### C MP, LIPID #### [facility] [address] [address] [address] Bebeto Alvarado EGFR-AF SAMMARINESE >60 Normal >=60 [facility] Comment on above: Performed By: #### C MP, LIPID #### [facility] [address] [address] [address] Bebeto Alvarado EGFR-NON AF SAMMARINESE 59 mL/min/1.73m2 Critically low >=60 [facility] Comment on above: Performed By: #### C MP, LIPID #### [facility] [address] [address] [address] Bebeto Alvarado Globulin (S) [Mass/Vol] 3.4 g/dL Normal [facility] Comment on above: Performed By: #### C MP, LIPID #### [facility] [address] [address] [address] Bebeto Alvarado Glucose [Mass/Vol] 103 mg/dL Normal 74-106 [facility] Comment on above: Performed By: #### C MP, LIPID #### [facility] [address] [address] [address] Bebeto Alvarado Potassium [Moles/Vol] 3.8 mmol/L Normal 3.5-5.1 [facility] Comment on above: Performed By: #### C MP, LIPID #### [facility] [address] [address] [address] Bebeto Alvarado Protein [Mass/Vol] 7.2 g/dL Normal 6.4-8.2 [facility] Comment on above: Performed By: #### C MP, LIPID #### [facility] [address] [address] [address] Bebeto Alvarado Sodium [Moles/Vol] 141 mmol/L Normal 136-145 [facility] Comment on above: Performed By: #### C MP, LIPID #### [facility] [address] [address] [address] Bebeto Alvarado Urea nitrogen [Mass/Vol] 11.0 mg/dL Normal 7.0-18.0 [facility] Comment on above: Performed By: #### C MP, LIPID #### [facility] [address] [address] [address] Bebeto Alvarado Urea nitrogen/Creatinine [Mass ratio] 11.3 mg/mg Normal [facility] Comment on above: Performed By: #### C MP, LIPID #### [facility] [address] [place] [address] Dr. Bebeto Alvarado URIC ACID SERUMon 11-21-2021 Urate [Mass/Vol] 7.3 mg/dL Critically high 2.6-6.0 [facility] Comment on above: Performed By: #### A 1C #### [facility] [address] [place] [address] Dr. Bebeto Alvarado VITAMIN B12on 11-21-2021 Cobalamin (Vitamin B12) [Mass/Vol] 2123.0 pg/mL Critically high 193.0-986.0 [facility] Comment on above: Performed By: #### A 1C #### [facility] [address] [place] [address] Dr. Bebeto Alvarado Physician Referralon 022 Physician Referral [phone] [id number] Normal [facility] KNEE RIGHT 1 OR 2 Son KNEE RIGHT 1 OR 2 VWS [facility] Department of Radiology [address] [place] [phone] ======== Patient Name: MICHELLE BE : 1960 Sex: F Age: Race: White Pt. Location: 84 Patient Status: O Ordered Date: 02/08/2019 10:40:00 AM Completed Date: 02/08/2019 10:38 AM Requesting Provider: AHSAN BINGHAM Attending Provider: AHSAN BINGHAM Report Copy To: Signs & Symptoms: S82.001A Unsp fracture of right patella, init for clos fx I10 History: [place] Comments: , , , Ordering Provider - [...] Electronically signed by:Debra Del Cid. Transcribed by: [email or web address], User Resident: Electronically Signed by: DEBRA DEL CID @ 02/08/2019 11:16 AM Normal [facility] Comment on above: Order Comment: , Mabel ws (X-RAY, KNEE): Radiologic Protocol , Weight Bearing?: N , With or Without Brace/Cast/Collar: With , Views (X-RAY, KNEE): Radiologic Protocol , Weight Bearing?: N , With or Without Brace/Cast/Collar: With , , , Ordering Provider - AHSAN BINGHAM PA-C , KNEE RIGHT 1 OR 2 VWSon 090 KNEE RIGHT 1 OR 2 VWS [facility] Department of Radiology [address] [place] [phone] ======== Patient Name: MICHELLE BE : [...] complications. Electronically signed by:Tomasz Stoll. Transcribed by: [email or web address], User Resident: Electronically Signed by: TOMASZ STOLL @ 12/07/2018 11:14 AM Normal [facility] Comment on above: Order Comment: , Vie ws (X-RAY, KNEE): Radiologic Protocol , Weight Bearing?: N , With or Without Brace/Cast/Collar: With , Views (X-RAY, KNEE): Radiologic Protocol , Weight Bearing?: N , With or Without Brace/Cast/Collar: With , , , Ordering Provider - AHSAN BINGHAM PA-C , KNEE RIGHT 1 OR 2 [facility] KNEE RIGHT 1 OR 2 [facility] Department of Radiology [address] [place] [phone] ======== Patient Name: MICHELLE BE : [...] osteoarthritis Electronically signed by:Anup Ellison. Transcribed by: [email or web address], User Resident: Electronically Signed by: ANUP ELLISON @ 10/06/2018 02:48 PM Normal [facility] Comment on above: Order Comment: , Rossie ws (X-RAY, KNEE): Radiologic Protocol , Weight Bearing?: N , With or Without Brace/Cast/Collar: With , Views (X-RAY, KNEE): Radiologic Protocol , Weight Bearing?: N , With or Without Brace/Cast/Collar: With , , , Ordering Provider - AHSAN BINGHAM PA-C , KNEE RIGHT 1 OR 2 VWSon 08-05 KNEE RIGHT 1 OR 2 S [facility] Department of Radiology [address] [place] [address] ======== Patient Name: MICHELLE BE [...] KNEE RIGHT 1 OR 2 [facility] ======== KNEE RIGHT 1 OR 2 [facility] 08/26/2018 2:54 PM EDT SIGNS AND [...] effusion Electronically signed by:Anup Ellison. Transcribed by: [email or web address], User Resident: Electronically Signed by: ANUP ELLISON @ 08/26/2018 04:56 PM Normal [facility] Comment on above: Order Comment: , Vie ws (X-RAY, KNEE): Radiologic Protocol , Weight Bearing?: N , With or Without Brace/Cast/Collar: With , Views (X-RAY, KNEE): Radiologic Protocol , Weight Bearing?: N , With or Without Brace/Cast/Collar: With , , , Ordering Provider - AHSAN BINGHAM PA-C , KNEE RIGHT 1 OR 2 [facility] 07-06 KNEE RIGHT 1 OR 2 [facility] Department of Radiology [address] [place] [phone] ======== Patient Name: MICHELLE BE : 1960 Sex: F Age: Race: White Pt. Location: Patient Status: Ordered Date: 07/29/2018 2:10:00 PM Completed Date: 07/29/2018 02:12 PM Requesting Provider: AHSAN BINGHAM Attending Provider: Report Copy To: Signs & Symptoms: S82.001A Unsp fracture of right patella, init for clos fx I10 History: [place] Comments: , , , Ordering Provider - AHSAN BINGHAM PA-C , Exam: KNEE RIGHT 1 OR 2 [facility] ======== KNEE RIGHT 1 OR 2 [facility] 07/29/2018 2:12 PM EDT SIGNS AND [...] compartment Electronically signed by:Anup Ellison. Transcribed by: [email or web address], User Resident: Electronically Signed by: ANUP ELLISON @ 07/29/2018 03:41 PM Normal [facility] Comment on above: Order Comment: , Mabel ws (X-RAY, KNEE): Radiologic Protocol , Weight Bearing?: N , With or Without Brace/Cast/Collar: With , Views (X-RAY, KNEE): Radiologic Protocol , Weight Bearing?: N , With or Without Brace/Cast/Collar: With , , , Ordering Provider - AHSAN BINGHAM PA-C , KNEE RIGHT 3 [facility] 9 KNEE RIGHT 3 [facility] Department of Radiology [address] [place], [place] [id number] ======== Patient Name: MICHELLE BE : 1960 Sex: F Age: Race: White Pt. Location: 84 Patient Status: Ordered Date: 07/15/2018 8:45:00 AM Completed Date: 07/15/2018 08:47 AM Requesting Provider: AHSAN BINGHAM Attending Provider: Report Copy To: Signs & Symptoms: S82.001A Unsp fracture of right patella, init for clos fx I10 History: [place] Comments: , , , Ordering Provider - AHSAN BINGHAM PA-C , Exam: KNEE RIGHT 3 S ======== KNEE RIGHT 3 VWS 07/15/2018 8:47 [...] knee Electronically signed by:Anup Ellison. Transcribed by: [email or web address], User Resident: Electronically Signed by: ANUP ELLISON @ 07/15/2018 03:31 PM Normal [facility] Comment on above: Order Comment: , Vie ws (X-RAY, KNEE): Radiologic Protocol , Weight Bearing?: N , With or Without Brace/Cast/Collar: With , Views (X-RAY, KNEE): Radiologic Protocol , Weight Bearing?: N , With or Without Brace/Cast/Collar: With , , , Ordering Provider - AHSAN BINGHAM PA-C , Operative Reporton 9 Operative Report MR#: [id number] [facility] Pt. Name: Michelle Be Room [...] Duarte MD Date Trans: 07/03/2018 04:28 A/terry [id number] [place] [facility] *ANAEROBIC CULTUREon 019 *ANAEROBIC CULTURE Clinical Report: (D) Specimen/Source: SWAB/RT KNEE Collected: 07/02/2018 13:53 Status: Final Last Updated: 07/07/2018 08:02 CULT RES (Final) No Anaerobes Isolated 5 Days Normal [facility] Comment on above: Performed By: #### 3 0312 #### [address] *WOUND CULTUREon 07-02-2018 *WOUND CULTURE Clinical Report: (D) Specimen/Source: WOUND/INTRAOP SPEC Collected: 07/02/2018 13:53 Status: Final Last Updated: 07/07/2018 10:13 (1) #1 RT KNEE GRAM (Final) Rare Polys No Bacteria Seen CULT RES (Final) No Growth Day 5 Normal [facility] Comment on above: Order Comment: #1 RT KNEE Performed By: #### 3 0343 #### [address] KNEE RIGHT 1 OR 2 VWSon 06-05 KNEE RIGHT 1 OR 2 S [facility] Department of Radiology [address] [place] [phone] ======== Patient Name: MICHELLE BE : [...] Electronically signed by:Debra Del Cid. Transcribed by: [email or web address], User Resident: Electronically Signed by: DEBRA DEL CID @ 07/02/2018 02:03 PM Normal [facility] Comment on above: Order Comment: ORIF VS PERCUTANEOUS FIXATION RIGHT PATELLA POC GLUCOSE LABon 07-02-2018 Glucose [Mass/Vol] 108 mg/dL High 70-100 [facility] Comment on above: Performed By: #### 8 5499 #### [facility] [address] [place] [address], [facility] APTTon 06-30-2018 aPTT Coag (Bld) [Time] 30.6 s Normal 25.0-35.0 Th e [facility] Comment on above: Result Comment: [...] THIS PURPOSE. Performed By: #### 5 6101, 30306 #### [facility] [address] [place] [address], [facility] BASIC METABOLIC PANELon 06-05 Calcium [Mass/Vol] 9.7 mg/dL Normal 8.6-10.3 [facility] Comment on above: Performed By: #### 0 0071 #### [facility] [address] [place] [address], [place] Chloride [Moles/Vol] 102 mmol/L Normal 98-107 [facility] Comment on above: Performed By: #### 0 0071 #### [facility] [address] [place] [address], [place] CO2 [Moles/Vol] 28 mmol/L Normal 21-31 [facility] Comment on above: Performed By: #### 0 0071 #### [facility] [address] [place] [address], [place] Creatinine [Mass/Vol] 1.20 mg/dL Normal 0.60-1.20 [facility] Comment on above: Performed By: #### 0 0071 #### [facility] [address] [place] [address], [place] GFR/1.73 sq M predicted among blacks MDRD (S/P/Bld) [Vol rate/Area] 56 ml/min/1.73sq m Abnormal >60 [facility] Comment on above: Performed By: #### 0 0071 #### [facility] [address] [place] [address], [place] GFR/1.73 sq M predicted among non-blacks MDRD (S/P/Bld) [Vol rate/Area] 47 ml/min/1.73sq m Abnormal >60 [facility] Comment on above: Performed By: #### 0 0071 #### [facility] [address] [place] [address], [place] Glucose [Mass/Vol] 97 mg/dL Normal 70-100 [facility] Comment on above: Performed By: #### 0 0071 #### [facility] [address] [place] [address], [place] Potassium [Moles/Vol] 4.1 mmol/L Normal 3.5-5.1 [facility] Comment on above: Performed By: #### 0 0071 #### [facility] [address] Sodium [Moles/Vol] 137 mmol/L Normal 136-145 [facility] Comment on above: Performed By: #### 0 1 #### [facility] [address] Urea nitrogen [Mass/Vol] 19 mg/dL Normal 7-25 [facility] Comment on above: Performed By: #### 0 1 #### [facility] [address] CBC W/DIFFon 06-30-2018 ABS BASOPHILS 0.1 10*3/uL Normal 0.0-0.2 [facility] Comment on above: Performed By: #### 5 0103 #### [facility] [address] ABS IMM GRANS 0.0 10*3/uL Normal 0.0-0.2 [facility] Comment on above: Performed By: #### 5 3 #### [facility] [address] ABS NEUTROPHILS 6.4 10*3/uL Normal 1.6-7.6 [facility] Comment on above: Performed By: #### 5 3 #### [facility] [address] Basophils/100 WBC (Bld) 0.7 % Normal 0.0-1.0 [facility] Comment on above: Performed By: #### 5 102 #### [facility] [address] Eosinophils (Bld) [#/Vol] 0.2 10*3/uL Normal 0.0-0.5 [facility] Comment on above: Performed By: #### 5 0103 #### [facility] [address] [place] [address], [facility] Eosinophils/100 WBC (Bld) 1.5 % Normal 0.0-6.0 [facility] Comment on above: Performed By: #### 5 3 #### [facility] [address] [place] [address], [facility] Erythrocyte distribution width (RBC) [Ratio] 14.4 % Normal 11.5-15.0 [facility] Comment on above: Performed By: #### 3 #### [facility] [address] [facility] [place] [address], [facility] Hematocrit (Bld) [Volume fraction] 40.6 % Normal 36.0-45.0 [facility] Comment on above: Performed By: #### 3 #### [facility] [address] [facility]. [address] Hemoglobin (Bld) [Mass/Vol] 13.3 g/dL Normal 12.0-15.0 [facility] Comment on above: Performed By: #### 3 #### [facility] [address] [place] [address], [facility] IMMATURE GRANS 0.4 % Normal 0.0-1.0 [facility] Comment on above: Performed By: #### 5 3 #### [facility] [address] [facility] [place] [address], [facility] Lymphocytes (Bld) [#/Vol] 2.6 10*3/uL Normal 1.2-4.0 [facility] Comment on above: Performed By: #### 5 3 #### [facility] [address] [place] [address], [facility] Lymphocytes/100 WBC (Bld) 26.5 % Normal 20.0-45.0 [facility] Comment on above: Performed By: #### 5 3 #### [facility] [address] [facility]. [address] MCH (RBC) [Entitic mass] 27.4 pg Normal 27.0-33.0 [facility] Comment on above: Performed By: #### 3 #### [facility] [address] [facility] [address] MCHC (RBC) [Mass/Vol] 32.8 g/dL Normal 32.0-35.0 [facility] Comment on above: Performed By: #### 102 #### [facility] [address] MCV (RBC) [Entitic vol] 83.5 fL Normal 82.0-98.0 [facility] Comment on above: Performed By: #### 102 #### [facility] [address] Monocytes (Bld) [#/Vol] 0.5 10*3/uL Normal 0.1-1.0 [facility] Comment on above: Performed By: #### 5 102 #### [facility] [address] MONOS 5.0 % Normal 5.0-12.0 [facility] Comment on above: Performed By: #### 5 3 #### [facility] [address] Neutrophils/100 WBC (Bld) 65.9 % Normal 40.0-72.0 [facility] Comment on above: Performed By: #### 5 102 #### [facility] [address] Nucleated RBC/100 WBC (Bld) [Ratio] 0 % Normal 0-0 [facility] Comment on above: Performed By: #### 5 102 #### [place] [address], [facility] PLAT CNT 290 10*3/uL Normal 150-400 [facility] Comment on above: Performed By: #### 5 0103 #### [facility] [address] [place] [address], [facility] RBC (Bld) [#/Vol] 4.86 10*6/uL Normal 3.80-5.00 [facility] Comment on above: Performed By: #### 5 0103 #### [facility] [address] [place] [address], [facility] WBC (Bld) [#/Vol] 9.68 10*3/uL Normal 4.00-10.60 [facility] Comment on above: Performed By: #### 5 0103 #### [address] [address], [facility] KNEE RIGHT 1 OR 2 VWSon 06-05 KNEE RIGHT 1 OR 2 VWS [facility] Department of Radiology [address] [place] [phone] ======== Patient Name: MICHELLE BE : 1960 Sex: F Age: Race: White Pt. 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, 7thD I10 History: [place] Comments: , Views (X-RAY, KNEE): Radiologic Protocol [...] Electronically signed by:Debra Del Cid. Transcribed by: [email or web address], User Resident: Electronically Signed by: DEBRA DEL CID @ 06/30/2018 11:52 AM Normal [facility] Comment on above: Order Comment: , Mabel ws (X-RAY, KNEE): Radiologic Protocol , Weight Bearing?: N , With or Without Brace/Cast/Collar: With , Views (X-RAY, KNEE): Radiologic Protocol , Weight Bearing?: N , With or Without Brace/Cast/Collar: With , , , Ordering Provider - AHSAN BINGHAM PA-C , PROTHROMBIN TIMEon 9 INR Coag (PPP) [Relative time] 0.98 {INR} Normal 0.91-1.16 [facility] Comment on above: Result Comment: ACCC [...] CHEST 1995;108:231S-246S. Performed By: #### 5 6101, [id number] #### [address] PT Coag (PPP) [Time] 13.0 s Normal 12.3-14.8 [facility] Comment on above: Result Comment: ALL RESULTS MUST BE INTERPRETED WITH RESPECT TO BLOOD DRAWING ARTIFACT OR DILUTION ERROR OF ANTICOAGULANT AT THE TIME OF SAMPLING. Performed By: #### 5 6101, [id number] #### [address] KNEE RIGHT 3 VWSon 9 KNEE RIGHT 3 VWS [facility] Department of Radiology [address] [place] [phone] ======== Patient Name: MICHELLE BE : 1960 Sex: F Age: Race: White Pt. Location: 84 Patient Status: O Ordered Date: 06/15/2018 1:35:00 PM Completed Date: 06/15/2018 01:34 PM Requesting Provider: AMPARO ZHANG Attending Provider: AMPARO ZHANG Report Copy To: ADELAIDA CARRION Signs & Symptoms: M17.11 Unilateral primary osteoarthritis, right knee I10 History: [place] Comments: , Weight Bearing?: Y , Weight [...] effusion Electronically signed by:Anup Ellison. Transcribed by: [email or web address], User Resident: Electronically Signed by: ANUP ELLISON @ 06/15/2018 03:50 PM Normal [facility] Comment on above: Order Comment: , Isaiah ght Bearing?: Y , Weight Bearing?: Y , , , Ordering Provider - AMPARO ZHANG PA-C , Vital Signs Date Time Vital Sign Value Performing Clinician Facility 01-28-2024 13:46-0400 Body height 162.6 cm Adelaida Sheyla SCREEDMAN/LABORER Work Phone: [facility] 01-28-2024 13:46-0400 Body mass index (BMI) [Ratio] 48.99 kg/m2 Adelaida Merryholz SCREEDMAN/LABORER Work Phone: [facility] 01-28-2024 13:46-0400 Body temperature 98.71 [degF] Adelaida Merryholz SCREEDMAN/LABORER Work Phone: [facility] 01-28-2024 13:46-0400 Body weight 129.46 kg Adelaida Aichholz SCREEDMAN/LABORER Work Phone: [facility] 01-28-2024 13:46-0400 Diastolic blood pressure 78 mm[Hg] Adelaida Aichholz SCREEDMAN/LABORER Work Phone: [facility] 01-28-2024 13:46-0400 Heart rate 81 /min Adelaida Aichholz SCREEDMAN/LABORER Work Phone: [facility] 01-28-2024 13:46-0400 Respiratory rate 18 /min Adelaida Aichholz SCREEDMAN/LABORER Work Phone: [facility] 01-28-2024 13:46-0400 SaO2% (BldA) [Mass fraction] 99 % Adelaida Yinghholz SCREEDMAN/LABORER Work Phone: [facility] 01-28-2024 13:46-0400 Systolic blood pressure 110 mm[Hg] Adelaida Yinghkushz SCREEDMAN/LABORER Work Phone: [facility] 05-18-2023 16:30-0500 Body height 162.6 cm Adelaida Aichholz SCREEDMAN/LABORER Work Phone: [facility] 05-18-2023 16:30-0500 Body mass index (BMI) [Ratio] 47.89 kg/m2 Adelaida Aichholz SCREEDMAN/LABORER Work Phone: [facility] 05-18-2023 16:30-0500 Body temperature 97.3 [degF] Adelaida Aichholz SCREEDMAN/LABORER Work Phone: [facility] 05-18-2023 16:30-0500 Body weight 126.55 kg Adelaida Aichholz SCREEDMAN/LABORER Work Phone: [facility] 05-18-2023 16:30-0500 Diastolic blood pressure 80 mm[Hg] Adelaida Aichholz SCREEDMAN/LABORER Work Phone: [facility] 05-18-2023 16:30-0500 Heart rate 76 /min Adelaida Aichholz SCREEDMAN/LABORER Work Phone: [facility] 05-18-2023 16:30-0500 Respiratory rate 19 /min Adelaida Aichholz SCREEDMAN/LABORER Work Phone: [facility] 05-18-2023 16:30-0500 SaO2% (BldA) [Mass fraction] 97 % Adelaida Aichholz SCREEDMAN/LABORER Work Phone: [facility] 05-18-2023 16:30-0500 Systolic blood pressure 134 mm[Hg] Adelaida Aichholz SCREEDMAN/LABORER Work Phone: [facility] 03-23-2023 12:10-0500 Diastolic blood pressure 98 mm[Hg] Adelaida Aichholz Work Phone: [facility] 03-23-2023 12:10-0500 Heart rate 76 /min Adelaida Aichholz Work Phone: [facility] 03-23-2023 12:10-0500 Respiratory rate 18 /min Adelaida Aichholz Work Phone: [facility] 03-23-2023 12:10-0500 SaO2% (BldA) [Mass fraction] 99 % Adelaida Carrion Work Phone: [facility] 03-23-2023 12:10-0500 Systolic blood pressure 162 mm[Hg] Adelaida Carrion Work Phone: [facility] 03-23-2023 10:53-0500 Body height 162.56 cm Adelaida Carrion Work Phone: [facility] 03-23-2023 10:53-0500 Body weight 125.64 kg Adelaida Carrion Work Phone: [facility] 12-19-2022 14:55-0400 Body height 162.56 cm Rosemary Vernonmond Other [facility] Other 12-19-2022 14:55-0400 Body mass index (BMI) [Ratio] 47.85 kg/m2 Rosemary Marita Other [facility] Other 12-19-2022 14:55-0400 Body temperature 97.8 [degF] Rosemary Vernonmond Other [facility] Other 12-19-2022 14:55-0400 Body weight 126.46 kg Rosemary Marita Other [facility] Other 12-19-2022 14:55-0400 Respiratory rate 20 /min Rosemary Marita Other [facility] Other 12-19-2022 14:55-0400 SaO2% (BldA) [Mass fraction] 95 % Rosemary Marita Other [facility] Other 11-20-2022 13:12-0400 Body temperature 97.7 [degF] Adelaida Aichholz Work Phone: [facility] 11-20-2022 13:12-0400 SaO2% (BldA) [Mass fraction] 96 % Adelaida Aichholz Work Phone: [facility] 11-20-2022 07:44-0400 Diastolic blood pressure 90 mm[Hg] Adelaida Aichholz Work Phone: [facility] 11-20-2022 07:44-0400 Heart rate 103 /min Adelaida Aichholz Work Phone: [facility] 11-20-2022 07:44-0400 Systolic blood pressure 152 mm[Hg] Adelaida Aichholz Work Phone: [facility] 11-19-2022 20:00-0400 Respiratory rate 18 /min Adelaida Aichholz Work Phone: [facility] 11-18-2022 15:18-0400 Body height 162.56 cm Adelaida Aichholz Work Phone: [facility] 11-17-2022 09:00-0400 Body weight 122.92 kg Adelaida Aichholz Work Phone: [facility] Encounters Encounter Date Encounter Type Care Provider Facility Start: 02-16-2024 End: 02-16-2024 ambulatory ADELAIDA AICHHOLZ Not Available Start: 02-04-2024 End: 02-04-2024 Refill Sonam Brown SCREEDMAN/LABORER Work Phone: [facility] Comment on above: Restless leg Start: 01-28-2024 End: 01-28-2024 Bamboo flowsheet Adelaida Aichholz SCREEDMAN/LABORER Work Phone: [facility] Start: 01-28-2024 End: 01-28-2024 Bamboo flowsheet Adelaida Aichholz SCREEDMAN/LABORER Work Phone: [facility] Start: 01-28-2024 End: 01-28-2024 Office outpatient visit 15 minutes Adelaida Sheyla SCREEDMAN/LABORER Work Phone: [facility] Comment on above: Acute cystitis witho ut hematuria (Primary Dx); Tobacco dependence; Needs flu shot; Morbid obesity ([facility]/HCC) Start: 01-28-2024 End: 01-28-2024 ambulatory ADELAIDA SHEYLA Not Available Start: 01-25-2024 End: 01-25-2024 ambulatory Syeda Mancuso MD Facility:[facility] Start: 01-21-2024 End: 01-25-2024 Clinisync Result Encounter Generic External Data Provider [facility] External Department Unsolicited Start: 01-21-2024 End: 01-25-2024 Clinisync Result Encounter Generic External Data Provider [facility] External Department Unsolicited Start: 01-06-2024 ambulatory Adelaida Carrion Facilit y:[facility] Start: 01-05-2024 End: 01-05-2024 Clinisync Result Encounter Adelaida Sheyla SCREEDMAN/LABORER Work Phone: [facility] Unsolicited Start: 01-05-2024 End: 01-05-2024 Clinisync Result Encounter Adelaida Sheyla SCREEDMAN/LABORER Work Phone: [facility] Unsolicited Start: 01-04-2024 End: 01-04-2024 ambulatory ADELAIDA MERRYHOLZ Not Available Start: 12-09-2023 End: 12-09-2023 ambulatory [...] 06-29-2023 End: 06-29-2023 ambulatory Syeda Mancuso MD Facility: [place] Start: 05-22-2023 End: 05-22-2023 ambulatory ASHLEIGH HINES Not Available Start: 05-21-2023 Refill Adelaidamonse Carrion SCREEDMAN/LABORER Work Phone: [facility] Comment on above: Acute cystitis with hematuria (Primary Dx) Start: 05-18-2023 End: 05-18-2023 Office outpatient visit 25 minutes Adelaida Carrion SCREEDMAN/LABORER Work Phone: [facility] Comment on above: Encounter [...] Not Available Start: 05-18-2023 Bamboo flowsheet Adelaida Aichholz SCREEDMAN/LABORER Work Phone: [facility] Start: 05-18-2023 Bamboo flowsheet Adelaida Aichholz SCREEDMAN/LABORER Work Phone: [facility] Start: 05-18-2023 End: 05-18-2023 Patient encounter procedure Adelaida Yinghkushz SCREEDMAN/LABORER Work Phone: [facility] Start: 03-25-2023 End: 03-25-2023 ambulatory ADELAIDA AICHHOLZ Not Available Start: 03-23-2023 End: 03-23-2023 Admission to same day surgery center Adelaida Carrion Work Phone: [facility] Work Phone: Start: 03-23-2023 End: 03-23-2023 ambulatory Adelaida Carrion Work Phone: [facility] Work Phone: Start: 03-11-2023 End: 03-11-2023 ambulatory KALLI INTERIANO Not Available Start: 02-20-2023 End: 02-20-2023 ambulatory ASHLEIGH Tabby HINES Not Available Start: 02-12-2023 End: 02-12-2023 ambulatory Jaec Graham Other [facility] Other Start: 02-12-2023 Telephone encounter Jace Haney Expense Analyst Start: 12-19-2022 End: 12-19-2022 ambulatory Rosemary Kirkland Other [facility] Other Start: 12-19-2022 Office outpatient ne w 10 minutes Rosemary Kirkland [facility] [place] Start: 11-17-2022 End: 11-20-2022 Evaluation and management of inpatient Adelaida Carrion Work Phone: [facility] [place] [address] Work Phone: Start: 09-04-2022 ambulatory ARIAN JOHNSON . Facili ty:[facility] Start: 08-26-2022 ambulatory NARENDRANATH LAKSHMIPATHY . 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 ADELAIDAMonse CARRION Facility:[facility] Start: 07-15-2022 End: 07-15-2022 [...] 07-02-2018 End: 07-03-2018 Patient encounter procedure SUKI ELYMORENO Facility:[facility] Procedures Date Procedure Procedure Detail Performing Clinician Start: 01-28-2024 Urnls dip stick/tabl et rgnt non-auto w/o micrscp Adelaida Carrion SCREEDMAN/LABORER Work Phone: Start: 01-21-2024 MHPT CULT,URINE Generic External Data Provider Start: 01-05-2024 ALL BASIC METABOLIC PANEL Adelaida Carrion SCREEDMAN/LABORER Work Phone: Start: 09-18-2023 Mammography Adelaida Merrysherine rachel SCREEDMAN/LABORER Work Phone: Start: 03-23-2023 Screening colonoscopy L oneal Sheyla Work Phone: Start: 03-23-2023 Colonoscopy Adelaida Jayden ramos SCREEDMAN/LABORER Work Phone: Start: 09-15-2022 Mammography Adelaida Merrysherine rachel SCREEDMAN/LABORER Work Phone: Start: 08-28-2022 Microscopic observat ion [Identifier] in Cervix by Cyto stain Adelaida Carrion SCREEDMAN/LABORER Work Phone: Start: 07-02-2018 ANESTH KNEE AREA SURGERY CHAPARRITA HENDRICKS Start: 07-02-2018 REMOVAL OF SUPPORT IMPLANT SUKI EBRAHEIM Start: 07-02-2018 TREAT KNEECAP FRACTURE SUKI EBRAHEIM Plan of Treatment Date Care Activity Detail Author Start: 03-23-2033 Screening for malignant neoplasm of colon [facility] Start: 08-28-2025 Screening for malignant neoplasm of cervix [facility] Start: 09-17-2024 Screening for malignant neoplasm of breast Mammogram [facility] Start: 05-18-2024 Medicare Annual Wellness (AWV) Medicare Annual Wellness (AWV) [facility] Start: 04-04-2024 End: 04-04-2024 Patient encounter procedure 04/04/2024 1:20 PM EST [facility] [address] [place] [id number] Adelaida Carrion NP [address] [place] [id number] [facility] Start: 03-01-2024 End: 03-01-2024 Patient encounter procedure 03/01/2024 12:00 PM EST Office Visit [facility] [place] [facility] [address] [place] [phone] Juany Leggett, MAUREEN [address] [place], [place] [id number] [facility] Start: 02-29-2024 End: 02-29-2024 Patient encounter procedure 02/29/2024 2:40 PM EST [facility] [address] [place] [address] Sonam Brown, SCREEDMAN/LABORER [address] [place] [address] [facility] Start: 02-16-2024 End: 02-16-2024 Patient encounter procedure 02/16/2024 11:30 AM EST [facility] [address] [place] [phone] Adelaida Carrion NP [address] [place] [address] [facility] Start: 02-04-2024 Influenza vaccination Influenza Vacc ine (#1) [facility] Comment on above: Postponed from 12/05 (Patient Does Not Have Time) Start: 01-28-2024 End: 01-27-2025 URINARY TRACT INFECTION (HTRX) URINARY TRACT INFECTION (HTRX) Lab Routine Acute cystitis without hematuria Expected: 01/28/2024 (Approximate), Expires: 01/27/2025 [facility] Work Phone: Comment on above: Expected: 01/28/2024 (Approximate), Expires: 01/27/2025 Start: 01-28-2024 End: 01-28-2024 Patient encounter procedure [facility] Comment on above: Tobacco dependence ( Primary Dx) Start: 09-16-2023 Screening for malignant neoplasm of breast Mammogram [facility] Start: 08-17-2023 End: 08-17-2023 Patient encounter procedure 08/17/2023 9:20 AM EDT Office Visit [facility] [address] [place] [address] Adelaida Carrion, BRIANA [address] [place] [phone] [facility] Start: 05-22-2023 End: 05-22-2023 Patient encounter procedure 05/22/2023 8:45 AM EST Office Visit [facility] [address] [place] [address] Ashleigh Hines PA [address] [place] [address] [facility] Start: 05-18-2023 End: 05-18-2023 Patient encounter procedure 05/18/2023 4:30 PM EST Office Visit [facility] [address] [place] [address] Adelaida Carrion NP [address] [place] [phone] Arrived [facility] Comment on above: Arrived Start: 05-18-2023 End: 05-18-2024 XR Hip - left 3 Views XR hip left 2 or 3 views Imaging Routine Left hip pain Expected: 05/18/2023 (Approximate), Expires: 05/18/2024 [facility] Work Phone: Comment on above: Expected: 05/18/2023 (Approximate), Expires: 05/18/2024 Start: 03-23-2023 [facility] Start: 11-20-2022 [facility] Start: 11-18-2022 Referral to clinical spectroscopist [facility] Start: 11-17-2022 Hospital admission [facility] Start: 11-17-2022 [facility] Start: 12-06-1991 Screening for malignant neoplasm of cervix HPV/Cotest [facility] Start: 1960 Medicare Annual Wellness (AWV) Medicare Annual Wellness (AWV) [facility] Start: 1960 Screening for malignant neoplasm of colon [facility] Patient Education [facility] Work Phone: Patient referral [facility] Work Phone: [facility] Immunizations Immunization Date Immunization Notes Care Provider Fa cili 01-28-2024 Influenza, injectabl e, Madin [place] Canine Kidney, preservative free, quadrivalent Adelaida Aichholz SCREEDMAN/LABORER Work Phone: [facility] 08-17-2023 zoster vaccine recombinant Adelaida Aichholz SCREEDMAN/LABORER Work Phone: [facility] 02-13-2023 influenza, injectabl e, quadrivalent, preservative free Adelaida Aichholz SCREEDMAN/LABORER Work Phone: [facility] 02-13-2023 SARS-COV-2 (COVID-19 ) vaccine, mRNA, spike protein, LNP, PF, 50 mcg/0.5 mL Adelaida Aichholz SCREEDMAN/LABORER Work Phone: [facility] 02-13-2023 influenza virus vaccine, unspecified formulation Adelaida Aichholz SCREEDMAN/LABORER Work Phone: [facility] 02-19-2022 diphtheria, tetanus toxoids and pertussis vaccine Adelaida Aichholz SCREEDMAN/LABORER Work Phone: [facility] 03-02-2021 Moderna SARS-CoV-2 Vaccination Adelaida Aichholz SCREEDMAN/LABORER Work Phone: [facility] 08-24-2020 Moderna SARS-CoV-2 Vaccination Adelaida Aichholz SCREEDMAN/LABORER Work Phone: [facility] 07-27-2020 Moderna SARS-CoV-2 Vaccination Adelaida Aichholz SCREEDMAN/LABORER Work Phone: [facility] 05-28-2018 influenza, injectabl e, quadrivalent, preservative free Adelaida Aichholz Work Phone: [facility] 2017 pneumococcal conjuga te vaccine, 13 valent Adelaida Carrion NP Work Phone: [facility] Payers Date Payer Category Payer Private Health Insurance [id number] 2022 Self-pay [id number] 2022 Medicare [id number] 2022 Medicare (Managed Care) [facility] MEDICARE [id number] 2008 Unknown [id number] 1961 Unknown [id number] 2.16.840.1.598789.3.579.2 .647 1961 Unknown [id number] 2.16.840.1.142590.3.579.2 .593 1961 Unknown [id number] 2.16.840.1.612800.3.579.2 .593 1961 Unknown [id number] 2.16.840.1.978351.3.579.2 .593 1961 Unknown [id number] 2.16.840.1.350601.3.579.2 .593 1961 Unknown [id number] 2.16.840.1.452412.3.579.2 .593 1961 Unknown [id number] 2.16.840.1.840624.3.579.2 .593 1961 Unknown [id number] 2.16.840.1.257228.3.579.2 .593 1961 Unknown [id number] 2.16.840.1.815042.3.579.2 .593 1961 Unknown [id number] 2.16.840.1.036644.3.579.2 .593 1961 Unknown [id number] 2.16.840.1.021905.3.579.2 .593 1961 Unknown [id number] 2.16.840.1.998465.3.579.2 .593 1961 Unknown [id number] 2.16.840.1.901431.3.579.2 .593 1961 Unknown [id number] 2.16.840.1.788605.3.579.2 .593 1961 Unknown [id number] 2.16.840.1.316259.3.579.2 .593 1961 Unknown [id number] 2.16.840.1.485501.3.579.2 .593 1961 Unknown [id number] 2.16.840.1.831549.3.579.2 .593 1961 Unknown [id number] 2.16.840.1.420575.3.579.2 .593 1961 Unknown [id number] 2.16.840.1.619873.3.579.2 .593 1961 Unknown [id number] 2.16.840.1.373447.3.579.2 .593 1961 Unknown [id number] 2.16.840.1.232597.3.579.2 .593 1961 Unknown [id number] 2.16.840.1.566551.3.579.2 .593 1961 Unknown [id number] 2.16.840.1.490031.3.579.2 .593 1961 Unknown [id number] 2.16.840.1.602946.3.579.2 .593 1961 Unknown [id number] 2.16.840.1.192248.3.579.2 .593 1961 Unknown [id number] 2.16.840.1.909700.3.579.2 .196 1961 Unknown [id number] 2.16.840.1.328536.3.579.2 .196 1961 Unknown [id number] 2.16.840.1.137089.3.579.2 .125 1961 Unknown [id number] 2.16.840.1.343903.3.579.2 .1259 1961 Unknown [id number] 2.16.840.1.448000.3.579.2 .125 1961 Unknown [id number] 2.16.840.1.162487.3.579.2 .1259 1961 Unknown [id number] 2.16.840.1.317644.3.579.2 .125 1961 Unknown [id number] 2.16.840.1.291130.3.579.2 .125 1961 Unknown [id number] 2.16.840.1.113190.3.579.2 .125 1961 Unknown [id number] 2.16.840.1.061844.3.579.2 .1259 1961 Unknown [id number] 2.16.840.1.870867.3.579.2 .125 1961 Unknown [id number] 2.16.840.1.734434.3.579.2 .1259 1961 Unknown [id number] 2.16.840.1.431600.3.579.2 .9 1961 Unknown [id number] 2.16.840.1.005360.3.579.2 .9 1961 Unknown [id number] 2.16.840.1.120914.3.579.2 .1258 1961 Unknown [id number] 2.16.840.1.991360.3.579.2 .1258 1961 Unknown [id number] 2.16.840.1.212173.3.579.2 .1258 1961 Unknown [id number] 2.16.840.1.806790.3.579.2 .1258 1961 Unknown [id number] 2.16.840.1.121175.3.579.2 .9 1959 Medicare [id number] 1959 Unknown [id number] Medicare Medicare [id number] Unknown [id number] 2.16.840.1.926530.3.579.2 .531 Unknown [id number] 2.16.840.1.202883.3.579.2 .531 Social History Date Type Detail Facility Start: 11-18-2022 End: 10-14-2023 Tobacco smoking status OHIS Ex-smoker (finding) [facility] Start: 1960 Sex Assigned At Female [facility] Start: 03-25-2023 End: 08-16-2023 Sex Assigned At [facility] Start: 04-06-1976 End: 04-06-2016 History of tobacco use Current smoker [facility] Start: 04-06-1976 End: 04-06-2016 History of tobacco use Cigarette Smoker [facility] Start: 02-09-2023 End: 08-16-2023 Cigarettes smoked current (pack per day) - Reported [address] [facility] Start: 02-09-2023 End: 10-14-2023 Tobacco use and exposure Smokeless tobacco non-user [facility] Start: 05-18-2023 End: 01-28-2024 Alcohol intake Lifetime non-drinker (finding) [facility] [...] Facility 11-20-2022 Functional status Patient at Baseline [facility] Work Phone: Mental Status Date Assessment Result Facility 11-20-2022 Cognitive function Cognitive Sta tus Patient is Progressing Toward Baseline [facility] Work Phone: Clinical Notes 10-03-2021 to 01-28-2024 [...] biotin 5 MG tablet Pt taking OTC ([email or web address]) Calcium Citrate-Vitamin D (CITRACAL + D PO) Pt taking OTC (Applitools) carvedilol (COREG) 12.5 mg, Oral, 2 times [...] Daily Magnesium 400 MG capsule Pt taking OTC([employer]) Melatonin 12 MG tablet 1 tablet, Oral, Nightly Multiple Vitamins-Minerals (BARIATRIC MULTIVITAMINS/IRON PO) Pt taking OTC ([email or web address]) nystatin (Mycostatin) 104274 UNIT/GM powder 1 application , Topical, 2 [...] Anxiety 05/18/2023 Bipolar disorder with severe depression ([facility]) 05/18/2023 Brain lesion Brain vascular malformation Chronic pain disorder Closed fracture of patella 02/04/2018 Colon polyps Constipation Degenerative cervical disc Degenerative lumbar disc Depression ([facility]) 05/18/2023 Diastolic dysfunction Dizziness 05/18/2023 Dysphagia Fibromyalgia Fibromyalgia Gastrocnemius equinus GERD (gastroesophageal reflux disease) Heart murmur Hematoma of right breast Hemiparesis ([facility]) Hemiparesis, right ([facility]) Hemorrhoid int/external hemorrhoids Hiatal hernia Iron deficiency Left foot pain 03/25/2023 Lower extremity edema Mood disorder ([facility]) mixed mood disorder OSMANY (obstructive sleep apnea) Osteoporosis ([facility]) Overactive bladder Pre-diabetes Primary hypertension ([facility]) 03/25/2023 PTSD (post-traumatic stress disorder) ([facility]) Restless leg Right knee pain Right sided weakness S/P bariatric surgery Shingles Slurred speech Stroke ([facility]) 2018 Tenosynovitis, de Quervain Thoracic back pain, [...] of the risks of continued smoking: stroke, MD, all forms of cancer, lung disease, and [...] Relevant Orders Flu vaccine, MDCK, quadrivalent, PF ([id number]) (Flucelvax single dose syringe) Associated Problem(s): Tobacco dependence The patient has been advised of the risks of continued smoking: stroke, MD, all forms of cancer, lung disease, and . Options for quitting smoking include: cold turkey, hypnosis, acupuncture, nicotine replacement meds (gum, lozenges, and patches), Buproprion, and Varenicline. At this time pt is encouraged to evaluate their goals for wanting to quit smoking, and reach out to provider when ready to start this process documented in this encounter [facility] 05-18-2023 History of Present illness Narrative Associated [...] (BARIATRIC MULTIVITAMINS/IRON PO) Bariatric Multivitamins/Iron nystatin (Mycostatin) 093009 UNIT/GM powder 1 application , Topical, 2 [...] Anxiety 05/18/2023 Bipolar disorder with severe depression ([facility]/HCC) 05/18/2023 Brain vascular malformation Chronic pain disorder Colon polyps Constipation Degenerative cervical disc Degenerative lumbar disc Depression (CMS/HCC) 05/18/2023 Diastolic dysfunction Dizziness 05/18/2023 Dysphagia Fibromyalgia Gastrocnemius equinus GERD (gastroesophageal reflux disease) Heart murmur Hematoma of right breast Hemiparesis, right ([facility]) Hemorrhoid int/external hemorrhoids Hiatal hernia Iron deficiency Left foot pain 03/25/2023 Lower extremity edema Mood disorder ([facility]) mixed mood disorder OSMANY (obstructive sleep apnea) Osteoporosis ([facility]) Overactive bladder Pre-diabetes Primary hypertension ([facility]/HCC) 03/25/2023 PTSD (post-traumatic stress disorder) ([facility]) Restless leg Right knee pain Right sided weakness S/P bariatric surgery Shingles Slurred speech Stroke ([facility]) 2018 Tenosynovitis, de Quervain Thoracic back pain, [...] yearly and prn documented in this encounter [facility] 03-23-2023 Procedure note [facility] 12-19-2022 Evaluation note Encounter Date Diagnosis Assessment Notes Dec, Skin candidiasis (ICD-10 - B37.2) Drink plenty fluids, get plenty of rest. Continue home medications as prescribed. Take the Diflucan as prescribed until gone. Follow-up with your family physician if no improvement in 2 to 3 days [facility] Other 08-17-2023 Discharge summary Author Eduardo bautista [facility] November 20, 2022 6:38am Note Date/Time November 20, 2022 6: 38am [place] [facility] [address] [place] [address] Discharge Summary Signed Patient: Michelle Be MR#: [id number] : 1960 Acct:[id number] Age/Sex: 61 / F Adm Date: 3 Loc: Room: [address] [place] [address]: Gaudencio Monk MD Copies to: MD Adelaida Álvarez, SCREEDMAN/LABORER-C~ Providers Date of Discharge: 11/20/22 Discharging Provider: [...] at that time.? She reports moving to [place] from [place] in 2011 and was then diagnosed with bipolar disorder at [facility] in [place], where she still follows with a therapist.? Shereports that she has been with 7 therapists in the last 9 years and is currentlycompleting EMDR with her current therapist. Past hospitalizations: Her most recent hospitalization was 5 years ago [facility] in [place] for the same feeling she is experiencing [...] 2010 due to her fibromyalgia.? [facility]. Relationships: Reports having people [...] or stop treatment, but to call [employer], 911 or come to the nearest emergency [...] Tablet 1 tab PO QID Follow Up: [facility] [Outside] [facility] [Outside] ( content manager: (Insert date/time here) Therapy:? (insert date/time [...] signed by Eduardo Monk MD> 11/20/22 0638 [facility] Work Phone: 1(295) 450-268308-16-2023 Progress note Author Eduardo bautista [facility] November 19, 2022 6:25am Note Date/Time November 19, 2022 6: 25am [facility] [address] [place] [address] Psychiatry Progress Note Signed Patient: Michelle Be MR#: [id number] : 1960 Acct:[id number] Age/Sex: 61 / F Adm Date: 3 Loc: 1S Room: 3K5134-0 Type : ADM IN Attending Dr: Gaudencio [...] signed by Eduardo Monk MD> 11/19/22 0625 [facility] Work Phone: 1(421) 546-201908-15-2023 Progress note Author Eduardo bautista [facility] November 18, 2022 11:01am Note Date/Time November 18, 2022 10 :11am [facility] [address] [place] [address] Psychiatry Progress Note Signed Patient: Michelle Be MR#: [id number] : 1960 Acct:[id number] Age/Sex: 61 / F Adm Date: 3 Loc: Room: [address] [place] [address] Type : ADM IN Attending Dr: Gaudencio [...] by requesting a schedule 2 referring to [facility] for pain management specifically every 4-6 hours [...] signed by MD DA Rangel> 11/18/22 1011 [facility] Work Phone: 1(348) 774-448608-14-2023 History and physical note Author Eduardo bautista [facility] November 17, 2022 12:48pm Note Date/Time November 17, 2022 12 :48pm [facility] [address] [place] [address] Psychiatry H&P Signed Patient: Michelle Be MR#: [id number] : 1960 Acct:[id number] Age/Sex: 61 / F Adm Date: 3 Loc: Room: [address] [place] [address] Type: ADM IN Attending Dr: Gaudencio Monk [...] at that time. She reports moving to [place] from [place] in 2011 and was then diagnosed with bipolar disorder at [facility] in [place], where she still follows with a therapist. Toñitoorts that she has been with 7 therapists in the last 9 years and is currentlycompleting EMDR with her current therapist. Past hospitalizations: Her most recent hospitalization was 5 years ago [facility] in [place] for the same feeling she is experiencing [...] her , son and his girlfriend, and kareemon. Reports a situation in which they are [...] equal bilaterally. CN XII: Tongue protrusion midline [facility] Medical History (Updated 11/17/22 @ 10:42 [...] signed by Eduardo Monk MD> 11/17/22 1249 [facility] Work Phone: 1(959) 301-995003-23-2023 NoteCONSULTATION CONSULTATION DATE: 06/26/2022 To: Nurse Carrion [...] L5-S1 facet joint injection under fluoroscopic guidance.[id number] NotePROCEDURE: XR SHOULDER RT 2V or > [...] authenticated by: KINGSLEY CLEMENTS Date: 2022-05-09 09:21[facility] [id number] NotePROCEDURE: XR WRIST LT MIN 3 V [...] authenticated by: KINGSLEY CLEMENTS Date: 2022-04-28 13:31[facility] [id number] NoteCONSULTATION CONSULTATION DATE: 04/03/2022 HISTORY OF PRESENT [...] her in three months, unless otherwise indicated.[facility] [id number] NoteCONSULTATION CONSULTATION DATE: 01/02/2022 This is a [...] prescription was sent by Dr. Macedo to [facility] in [place] for the compounded cream. She needs a [...] in three months' time unless otherwise indicated.[facility] [id number] NotePROCEDURE: XR ANKLE RT MIN 3 VIEWS, [...] Electronically authenticated by: KINGSLEY CLEMENTS Date: 2022-01-01 13:11[facility]09-28-2022 NotePROCEDURE: XR ANKLE RT MIN 3 [...] Electronically authenticated by: KINGSLEY CLEMENTS Date: 2022-01-01 13:11[facility]08-18-2022 NotePROCEDURE: XR FOOT RT MIN 3 VIEWS HISTORY: Pain in right foot , chronic COMPARISON: XR foot right 2020 FINDINGS: BONES:No fracture, dislocation, bone lesion. Small calcaneal degenerative enthesophytes. SOFT TISSUES:No visible soft tissue swelling. EFFUSION:None visible. OTHER: Negative. IMPRESSION: 1. No acute bone abnormality or significant degenerative joint disease. Electronically authenticated by: KINGSLEY CLEMENTS Date: 2021-11-21 16:13[facility]06-30-2022 NoteCONSULTATION CONSULTATION DATE: 10/03/2021 This is [...] and Approved by: ZELDA MCDANIEL . 10/10/2021 10:22:00[facility] Diagnosis Onset Date Resolution Status Allergies acute Bipolar 2 disorder acute Hypertension acute Morbid obesity with BMI of 45.0-49.9, adult acute OSMANY (obstructive sleep apnea) acute Restless legs syndrome [facility] Work Phone: Evaluation noteNo InformationNort [employer] Other Evaluation noteNo assessment information available [facility] Work Phone: Evaluation note* Diagnosis [...] (CMS/HCC) Unspecified episodic mood disorder Primary hypertension (CMS/[facility]) Unspecified essential hypertension Left hip pain Pain in joint, pelvic region and thigh Open wound of anterior abdominal wall, initial encounter documented in this encounter [facility] HealthcareEvaluation note* Diagnosis Acute cystitis with hematuria- Primary documented in this encounter [facility] Healthcare[facility]* Diagnosis Left foot pain- Primary Pain in soft tissues of limb Primary hypertension (CMS/[facility]) Unspecified essential hypertension Class 3 severe obesity due to excess calories without serious comorbidity with body mass index (BMI) of 45.0 to 49.9 in adult ([facility]) Encounter for annual wellness visit (AWV) in [...] anterior abdominal wall, initial encounter Primary hypertension (CMS/HCC)- Primary Unspecified essential hypertension Yeast infection of the skin Candidiasis of skin and nails Morbid obesity (CMS/HCC) Morbid obesity Primary hypertension (CMS/HCC)- Primary Unspecified essential hypertension Encounter for screening mammogram for malignant neoplasm of breast Gastroesophageal reflux disease, unspecified whether esophagitis present Acute gout of right foot, unspecified cause Osteoporosis, unspecified osteoporosis type, unspecified pathological fracture presence (CMS/HCC) Morbid obesity (CMS/HCC) Morbid obesity Pre-diabetes Other abnormal glucose Anemia, unspecified type Vitamin deficiency Unspecified vitamin deficiency Post-viral cough syndrome Primary hypertension ([facility])- Primary Unspecified essential hypertension Allergic rhinitis, unspecified Acute cough Morbid obesity ([facility]) Morbid obesity Former cigarette smoker Personal history of tobacco use, presenting hazards to health Toxic metabolic encephalopathy- Primary Hemiparesis, right ([facility]) Unspecified hemiplegia affecting unspecified side Acute respiratory failure with hypoxia ([facility]) Heart murmur Undiagnosed cardiac murmurs Primary hypertension ([facility]) Unspecified essential hypertension Morbid obesity ([facility]) Morbid obesity Bipolar disorder with severe depression ([facility]) Slurred speech Other speech disturbance Bilateral lower extremity edema- Primary Primary hypertension ([facility]) Unspecified essential hypertension Lower extremity edema Edema Essential (primary) hypertension ([facility]) Unspecified essential hypertension Gastro-esophageal reflux disease without esophagitis Allergic rhinitis, unspecified Bilateral lower extremity edema- Primary Morbid (severe) obesity due to excess calories ([facility]) Body mass index (BMI) 45.0-49.9, adult ([facility]) Pre-diabetes Other abnormal glucose Bilateral lower extremity edema- Primary Essential (primary) hypertension ([facility]) Unspecified essential hypertension Allergic rhinitis, unspecified OSMANY (obstructive sleep apnea) Obstructive sleep apnea (adult) (pediatric) Primary hypertension ([facility]) Unspecified essential hypertension Morbid obesity ([facility]) Morbid obesity Acute cystitis without hematuria- Primary Tobacco dependence Tobacco use disorder Needs flu shot Need for prophylactic vaccination and inoculation against influenza Morbid obesity ([facility]) Morbid obesity documented in this encounter [facility] HealthcareEvaluation note* Diagnosis Left foot pain- Primary Pain in soft tissues of limb Primary hypertension ([facility]) Unspecified essential hypertension Class 3 severe obesity due to excess calories without serious comorbidity with body mass index (BMI) of 45.0 to 49.9 in adult ([facility]) Encounter for annual wellness visit (AWV) in Medicare patient- Primary OSMANY (obstructive sleep apnea) Obstructive sleep apnea (adult) (pediatric) Chronic pain disorder Chronic pain syndrome Gastroesophageal reflux disease, unspecified whether esophagitis present Overactive bladder Hypertonicity of bladder Lower extremity edema Edema Pre-diabetes Other abnormal glucose Morbid obesity ([facility]) Morbid obesity Yeast infection of the skin Candidiasis of skin and nails Tobacco dependence Tobacco use disorder Mood disorder ([facility]) Unspecified episodic mood disorder Primary hypertension (CMS/HCC) Unspecified essential hypertension Left hip pain Pain in joint, pelvic region and thigh Open wound of anterior abdominal wall, initial encounter Primary hypertension (CMS/HCC)- Primary Unspecified essential hypertension Yeast infection of the skin Candidiasis of skin and nails Morbid obesity (CMS/HCC) Morbid obesity Primary hypertension (CMS/HCC)- Primary Unspecified essential hypertension Encounter for screening mammogram for malignant neoplasm of breast Gastroesophageal reflux disease, unspecified whether esophagitis present Acute gout of right foot, unspecified cause Osteoporosis, unspecified osteoporosis type, unspecified pathological fracture presence (CMS/HCC) Morbid obesity (CMS/HCC) Morbid obesity Pre-diabetes Other abnormal glucose Anemia, unspecified type Vitamin deficiency Unspecified vitamin deficiency Post-viral cough syndrome Primary hypertension (CMS/HCC)- Primary Unspecified essential hypertension Allergic rhinitis, unspecified Acute cough Morbid obesity (CMS/HCC) Morbid obesity Former cigarette smoker Personal history of tobacco use, presenting hazards to health Toxic metabolic encephalopathy- Primary Hemiparesis, right (CMS/[facility]) Unspecified hemiplegia affecting unspecified side Acute respiratory failure with hypoxia (CMS/[facility]) Heart murmur Undiagnosed cardiac murmurs Primary hypertension (CMS/HCC) Unspecified essential hypertension Morbid obesity (CMS/HCC) Morbid obesity Bipolar disorder with severe depression (CMS/HCC) Slurred speech Other speech disturbance Bilateral lower extremity edema- Primary Primary hypertension (CMS/HCC) Unspecified essential hypertension Lower extremity edema Edema Essential (primary) hypertension (CMS/HCC) Unspecified essential hypertension Gastro-esophageal reflux disease without esophagitis Allergic rhinitis, unspecified Bilateral lower extremity edema- Primary Morbid (severe) obesity due to excess calories ([facility]) Body mass index (BMI) 45.0-49.9, adult ([facility]) Pre-diabetes Other abnormal glucose Bilateral lower extremity edema- Primary Essential (primary) hypertension (CMS/HCC) Unspecified essential hypertension Allergic rhinitis, unspecified OSMANY (obstructive sleep apnea) Obstructive sleep apnea (adult) (pediatric) Primary hypertension (CMS/HCC) Unspecified essential hypertension Morbid obesity ([facility]/HCC) Morbid obesity Acute cystitis without hematuria- Primary Tobacco dependence Tobacco use disorder Needs flu shot Need for prophylactic vaccination and inoculation against influenza Morbid obesity (CMS/HCC) Morbid obesity Restless leg Restless legs syndrome (RLS) documented in this encounter [facility] HealthcareHistory and physical note Author Jace Graham [facility] March 23, 2023 11:21am Note Date/Time March 23, 2023 11:21am [facility] [address] [place] [address] Gastroenterology H&P Signed Patient: Michelle Be MR#: [id number] : 1960 Acct:[id number] Age/Sex: 62 / F Adm Date: 3 Loc: Room: Type: [facility] Attending Dr: Jace Graham MD Copies [...] signed by Jace Graham MD> 03/23/23 112 [facility] Work Phone: History general Narrative - [...] see above surg Hospitalization History stroke 2017 [facility] Other Hospital Discharge instructions Additional Instructions Regular Diet No Activity [facility]ions[facility] Work Phone: Hospital Discharge instructions [...] years. -Follow up with PCP. -Office number [phone].[facility] Work Phone: Summary Purpose Family History [...] content) DATE CREATED AUTHOR 02/18/2019 [facility] DATE CREATED AUTHOR AUTHOR'S ORGANIZ ATION 11/15/2021 [facility] DATE CREATED AUTHOR AUTHOR'S ORGANIZ ATION 08/16/2022 [facility] DATE CREATED AUTHOR AUTHOR'S ORGANIZ ATION 01/28/2024 [facility] DATE CREATED AUTHOR AUTHOR'S ORGANIZ ATION 01/31/2024 [facility] DATE CREATED AUTHOR AUTHOR'S ORGANIZ ATION 02/18/2024 [facility] dical Specialists EPIC Care Teams (unrecognized [...] Marsh APRN Other Provider Active Jessica Murillo DO Other Provider Active Obdulio Bragg MD [...] MD Other Provider Active Joellen Le , SCREEDMAN/LABORER-C Other Provider Active Severo Yancey MD Other Provider Active Rao Webber MD Other Provider Active Yuan Shi MD Other Provider Active Delroy Ramirez MD Other Provider Active Berta Comer , DO Other Provider Active Negrito Ruiz , DO Other Provider Active Lacho Singh , DO Other Provider Active Rachana Hobson , AMMUNITION ASSEMBLY I LABORER Other Provider Active Rob Lake , DO Other Provider Active Jeff Alvarez MD Other Provider Active Urmila Rinaldi , AMMUNITION ASSEMBLY I LABORER Other Provider Active Bina Mayberry , AMMUNITION ASSEMBLY I LABORER Other Provider Active Mir Bradford MD Other Provider Active Te Da Silva MD Other Provider Active Debra Landaverde RN Other Provider Active Team Status: Inactive Member Role Status Dates Adelaida Carrion Primary Care Provider Active Jace Graham MD Attending Provider Active Levi Maker Relationship Specialty Start Date End Date José Luis Roberts MD [address] [place] [address] PCP - General Family Medicine 05/18/23 Adelaida Carrion NP [address] [place] [address] Referring Physician Nurse Practitioner 10/14/22 Levi Maker Relationship Specialty Start Date End Date José Luis Roberts MD [address] [place] [address] PCP - General Family Medicine 05/18/23 Adelaida Carrion NP [address] [place] [address] Referring Physician Nurse Practitioner 10/14/22 Levi Maker Relationship Specialty Start Date End Date José Luis Roberts MD [address] [place] [phone] PCP - General Family Medicine 05/18/23 Adelaida Carrion NP [address] [place] [address] Referring Physician Nurse Practitioner 10/14/22 Levi Maker Relationship Specialty Start Date End Date José Luis Roberts MD [address] [place] [phone] PCP - General Family Medicine 05/18/23 Adelaida Carrion NP Referring Physician Nurse Practitioner 10/14/22 Miriam Suarez DO [address] [place], [place] [id number] Referring Physician Neurology 06/29/23 Diana De Leon LPN Licensed Practical Nurse Family Medicine 12/18/23 Levi Maker Relationship Specialty Start Date End Date José Luis Roberts MD [address] [place] [phone] PCP - General Family Medicine 05/18/23 Adelaida Carroin NP Referring Physician Nurse Practitioner 10/14/22 Miriam Suarez DO [address] [place] [address] Referring Physician Neurology 06/29/23 Diana De Leon LPN Licensed Practical Nurse Family Medicine 12/18/23 Levi Maker Relationship Specialty Start Date End Date Unallocated, Johan Sierra MD [address] [place] [address] PCP - General Family Medicine 01/27/24 Miriam Suarez DO [address] [place] [address] Referring Physician Neurology 06/29/23 Diana De Leon LPN Licensed Practical Nurse Family Medicine 12/18/23 Adelaida Carrion, BRIANA [address] [place] [address] Nurse Practitioner Family Medicine 01/27/24 Levi Maker Relationship Specialty Start Date End Date Unallocated, Johan Sierra MD [facility] [address] PCP - General Family Medicine 01/27/24 Miriam Suarez DO [address] [place] [address] Referring Physician Neurology 06/29/23 Diana De Leon LPN Licensed Practical Nurse Family Medicine 12/18/23 Adelaida Carrion NP [address] [place] [address] Nurse Practitioner Family Medicine 01/27/24 Levi Maker Relationship Specialty Start Date End Date José Luis Roberts MD [address] [place] [address] PCP - General Family Medicine 02/02/24 Miriam Suarez DO [address] [place] [address] Referring Physician Neurology 06/29/23 Diana De Leon LPN Licensed Practical Nurse Family Medicine 12/18/23 Adelaida Carrion NP [address] [place] [address] Nurse Practitioner Family Medicine 01/27/24 REASON FOR [...] BE BASED ON THE PRIMARY CLINICAL RECORDS. [employer] provides no warranty or guarantee of the accuracy or completeness of information in this document.
[2024-02-23 07:37] VITALS: BP 140/82; PULSE 73; TEMP 36.4; O2SAT 98
[2024-02-23] MEDS: 0.9 % SODIUM CHLORIDE 500 ML IV (08:10)
[2024-02-23] MEDS: LIDOCAINE HCL 2% 400 MG/20 ML MDV 6 ML INJ (08:55)
[2024-02-23] MEDS: DEXAMETHASONE SOD PHOS 4 MG/ML VIAL INJ (08:55)
[2024-02-23] MEDS: BUPIVACAINE HCL 0.25% PF 25 MG/10 ML VIAL 4 ML INJ (08:55)
[2024-02-23 08:57] VITALS: BP 114/66; PULSE 68; TEMP 36.3; O2SAT 96
[2024-02-23 09:01] VITALS: BP 100/75; PULSE 65; TEMP 36.3; O2SAT 95
--- NOTE | 2024-02-23 10:25 | W.PM.PROCNOT ---
Date of procedure: 02/23/24 Pre-op diagnosis: Thoracic spondylosis Post-op diagnosis: same as pre-op Procedure: Right Thoracic 01/04, 02/15 Radiofrequency ablation Under fluoroscopic guidance Rhizotomy was created using radio frequency ablation at 80?C for 90 seconds 1 to 2 lesions created at each site. Post lesioning injection of 2 mL each of 0.25% Marcaine and 2% lidocaine with Dexamethasone 4mg. 0.5 to 1 mL injected at each site IV in place yes If Intravenous fluids: NS at KVO Anesthesia local 2% lidocaine for Anesthesia Other: MAC Timeout process compliant After informed consent obtained.Patient brought to the procedure room placed in the prone position skin overlying the area was prepped and draped in a sterile fashion using betadine. 25 gauge needle was used to create a skin wheal over each of the targeted areas utilizing 2% lidocaine. A rhizotomy needle with a 10 mm active tip was inserted over each of the anesthetized areas and directed towards each of the medial branches accomplished under fluoroscopic guidance. after encountering the same we had positive sensory stimulation, negative motor stimulation was noted. lesions were then created. Post lesioning, steroid solution was injected needles removed. Patient was transferred to recovery room in stable condition to be discharged home after meeting criteria. Anesthesia: MAC Surgeon: Tejal Montaño Condition: stable
== END 2024-02-23 09:23 | disposition home or self-care (01) ==
LOC: SURGOUT 07:16
PROVIDERS: PCP Nurse Practitioner; Visit Provider Anesthesiology Pain Medicine
DX: M47.814 Spondylosis without myelopathy or radiculopathy, thoracic region (principal); Z98.84 Bariatric surgery status; Z90.49 Acquired absence of other specified parts of digestive tract; G47.33 Obstructive sleep apnea (adult) (pediatric); Z87.891 Personal history of nicotine dependence; I10 Essential (primary) hypertension; E66.01 Morbid (severe) obesity due to excess calories; Z68.42 Body mass index [BMI] 45.0-49.9, adult
CPT/HCPCS: 64633; 64634; J0665; J1100; J2704

== ENCOUNTER 2024-03-02 02:01 | Emergency (ER) | payer MEDICARE, SELFPAY ==
[2024-03-02] VITALS (34 sets, daily range): BP systolic 117–175; BP diastolic 73–102; PULSE 55–119; TEMP 37.1; O2SAT 92–100; BMI 43.0
--- OUTSIDE RECORDS SUMMARY | 2024-03-02 02:13 | XMS_ITS | CCD ---
Author Organization [facility] Care Team Providers Care Split Leather Mosser Name Role Phone EBRAHEIM, SUKI Admitting Unavailable EBRAHEIM, SUKI Attending Unavailable AICHHOLZ, ADELAIDA Referring Unavailable AICHHOLZ, ADELAIDA Primary Care Unavailable [place] Procedure Practitioner Unavailab SUKI Jacob Surgeon Unavailable TN Procedure Practitioner Unavailab CHAPARRITA Goncalves Surgeon Unavailable BRIDGETTE MACEDO Admitting Unavailable BRIDGETTE MACEDO Attending Unavailable AICHHOLZ, RUBBLE PLACER ADELAIDA Primary Care Unavailable ZIMMER ., DR FINA Iverson Admitting Unavailable ZIMMER ., DR FINA Iverson Attending Unavailable AICHHOLZ, RUBBLE PLACER ADELAIDA Primary Care Unavailable MCDANIEL ., ZELDA Consulting Unavailable LAKSHMIPATHY ., NARENDRANATH Consulting Paula vailable LAKSHMIPATHY ., NARENDRANATH Admitting Paula vailable LAKSHMIPATHY ., NARENDRANATH Attending Paula vailable AICHHOLZ, RUBBLE PLACER ADELAIDA Primary Care Unavailable LAKSHMIPATHY ., NARENDRANATH Consulting Paula vailable AICHHOLZ, RUBBLE PLACER ADELAIDA Primary Care Unavailable MARKER ., DR CHAUDHRY Admitting Unavailable MARKER ., DR CHAUDHRY Attending Unavailable MARKER ., DR CHAUDHRY Consulting Unavailable AICHHOLZ, RUBBLE PLACER ADELAIDA Admitting Unavailable AICHHOLZ, RUBBLE PLACER ADELAIDA Attending Unavailable AICHHOLZ, RUBBLE PLACER ADELAIDA Primary Care Unavailable ZIMMER ., DR FINA Iverson Admitting Unavailable ZIMMER ., DR FINA Iverson Attending Unavailable AICHHOLZ, RUBBLE PLACER ADELAIDA Primary Care Unavailable MCDANIEL ., ZELDA Consulting Unavailable ZIMMER ., DR FINA Iverson Admitting Unavailable ZIMMER ., DR FINA Iverson Attending Unavailable AICHHOLZ, RUBBLE PLACER ADELAIDA Primary Care Unavailable MCDANIEL ., ZELDA Consulting Unavailable AICHHOLZ, RUBBLE PLACER ADELAIDA Admitting Unavailable AICHHOLZ, RUBBLE PLACER ADELAIDA Attending Unavailable AICHHOLZ, RUBBLE PLACER ADELAIDA Primary Care Unavailable AICHHOLZ, RUBBLE PLACER ADELAIDA Consulting Unavailable AICHOLZ, RUBBLE PLACER ADELAIDA Admitting Unavailable AICHHOLZ, RUBBLE PLACER ADELAIDA Attending Unavailable AICHOLZ, [facility] ADELAIDA Primary Care Unavailable AICHHOLZ, RUBBLE PLACER ADELAIDA Consulting Unavailable MISC, DR COTE Admitting Unavailable MISC, DR COTE Attending Unavailable AICHOLZ, [facility] ADELAIDA Primary Care Unavailable AICHHOLZ, RUBBLE PLACER ADELAIDA Consulting Unavailable ELYSSA, DR COTE Consulting Unavailable STARR, DR KINGSLEY Atkins Consulting Unavailable ZIMMER ., DR FINA Iverson Admitting Unavailable ZIMMER ., DR FINA Iverson Attending Unavailable AICHOLZ, [facility] ADELAIDA Primary Care Unavailable MCDANIEL ., ZELDA Consulting Unavailable ZIMMER ., DR FINA Iverson Admitting Unavailable ZIMMER ., DR FINA Iverson Attending [facility]available [facility] Primary Care Unavailable ZIMMER ., DR FINA Iverson Consulting Unavailable OMID LAY Consulting Unavailable ZIMMER ., DR FINA Iverson Admitting Unavailable ZIMMER ., DR FINA Iverson Attending Unavailable [facility] Primary Care Unavailable MCDANIEL ., ZELDA Consulting Unavailable [facility] Primary Care Unavailable HALKER ., ARIAN Admitting Unavailable HALKER ., RAIAN Attending Unavailable LAKSHMIPATHY ., NARENDRANATH Consulting Paula vailable HALKER ., ARIAN Consulting Unavailable LAKSHMIPATHY ., NARENDRANATH Admitting Paula vailable LAKSHMIPATHY ., NARENDRANATH Attending Paula vailable [facility] Primary Care Unavailable LAKSHMIPATHY ., NARENDRANATH Consulting Paula vailable AICHOLZ, RUBBLE PLACER ADELAIDA Admitting Unavailable AICHOLZ, RUBBLE PLACER ADELAIDA Attending Unavailable AICHOLZ, RUBBLE PLACER ADELAIDA Primary Care Unavailable AICHHOLZ, RUBBLE PLACER ADELAIDA Consulting Unavailable BRIDGETTE MACEDO Admitting Unavailable BRIDGETTE MACEDO Attending Unavailable AICHOLZ, RUBBLE PLACER ADELAIDA Primary Care Unavailable STARR, DR KINGSLEY Atkins Consulting Unavailable BRIDGETTE MACEDO Consulting Unavailable GILMER NEVES Admitting Unavailable GILMER NEVES Attending Unavailable PURA, GILMER Consulting Unavailable AICHOLZ, RUBBLE PLACER ADELAIDA Primary Care Unavailable AICHOLZ, RUBBLE PLACER ADELAIDA Primary Care Unavailable DR WILLI RINALDI Admitting Unavailable DEEJAY, DR WILLI Atkins Attending Unavailable DR WILLI RINALDI Consulting Unavailable AICHOLZ, RUBBLE PLACER ADELAIDA Primary Care Unavailable ALMAZ ., DANNY Admitting Unavailable ALMAZ ., DANNY Attending Unavailable DR KINGSLEY CLEMENTS Consulting Unavailable ALMAZ ., DANNY Consulting Unavailable LAKSHMIPATHY ., NARENDRANATH Admitting Paula vailable LAKSHMIPATHY ., NARENDRANATH Attending Paula vailable AICHHOLZ, RUBBLE PLACER ADELAIDA Primary Care Unavailable AICHHOLZ, RUBBLE PLACER ADELAIDA Admitting Unavailable AICHHOLZ, RUBBLE PLACER ADELAIDA Attending Unavailable AICHHOLZ, RUBBLE PLACER ADELAIDA Primary Care Unavailable AICHHOLZ, RUBBLE PLACER ADELAIDA Admitting Unavailable AICHHOLZ, RUBBLE PLACER ADELAIDA Attending Unavailable AICHHOLZ, RUBBLE PLACER ADELAIDA Primary Care Unavailable AICHHOLZ, RUBBLE PLACER ADELAIDA Consulting Unavailable ZIEBER, DR KINGSLEY Atkins Consulting Unavailable HALKER ., ARIAN Admitting Unavailable HALKER ., ARIAN Attending Unavailable AICHHOLZ, RUBBLE PLACER ADELAIDA Primary Care Unavailable Aichholz, Adelaida J Primary Care Provider MD Gaudencio Monk Admit Provider [phone] MD Gaudencio Monk Attending Provider JOHANN Vieira Other Provider Unavailable JOHANN Pina Other Provider Unavailable JOHANN Hurtado Other Provider Unavailable JOHANN Crooks Other Provider Unavailable JOHANN Mejias Other Provider Unavailable JOHANN Kim Other Provider Unavailable MD Walker Pringle Other Provider Dilans, SCIENTIFIC MANAGER Adelaida Huddleston Other Provider [phone] DO Jessica Murillo Other Provider [phone] MD Obdulio Bragg Other Provider DO Joon Cristina Other Provider [phone] MD Torin Robert Other Provider [phone] MD Dawn Barrera Other Provider [phone] Karlene ANP- Mari Other Provider [phone] MD Sofi Almanzar Other Provider [phone] MD Sharad Gallegos Other Provider MD [...] Graham Unavailable Adelaida Carrion Primary Care Provider [phone] MD Jace Graham Attending Provider Sheyla PURCHASING OFFICER, Adelaida Unavailable José Luis Roberts MD Primary Care Provider [phone] Sheyla PURCHASING OFFICER, Adelaida Unavailable Miriam Suarez DO Unavailable Diana De Leon LPN Unavailable Unavailable Jace Graham Attending Unavailable Jace Graham Admitting Unavailable Aichholz, Adelaida J Primary Care Unavailable Aichholz, Adelaida J Primary Care Unavailable Aleshia, Eduardo Attending Unavailab le Aleshia Eduardo Admitting Unavailab kayleen Garner MD, [place] Provider Primary Care Provi kellee Aichholz PURCHASING OFFICER, Adelaida Unavailable Jamee JAIMES, Syeda King Attending [...] BROWN Attending Unavailable AICHHOLZ, ADELAIDA Attending Unavailable WINDNAGENARO VILLASENORICIMonse Ricci Attending Unavailable JUANY TREJO Attending Unavailable AICHHOLZ, ADELAIDA Attending Unavailable AICHHOLZ, ADELAIDA Attending Unavailable AICHHOLZ, ADELAIDA Attending Unavailable AICHHOLZ, ADELAIDA Attending Unavailable Bong Rosado MA Unavailable Unavailable Allergies Allergy Classification Reported Allergen(s) Allergy Type Date of Onset Reaction(s) Facility (7 sources) Adhesive Tape; Translations: [ADHESIVE TAPE] Propensity to adverse reactions (disorder) 04-06-19 14 rash [facility] Repository (3 sources) levETIRAcetam; Translations: [KEPPRA] Drug Allergy 07-02-19 19 [facility] Repository (3 sources) milnacipran; Translations: [SAVELLA] Drug Allergy 03-14-20 13 [facility] Repository (1 source) Penicillin; Translations: [PENICILLIN] Drug Allergy 01-16-20 18 [facility] Repository (5 sources) Prochlorperazin e; Translations: [COMPAZINE] Drug Allergy 03-14-20 13 agitation [facility] Repository (20 sources) Tetracycline; Translations: [TETRACYCLINE] Drug Allergy 04-06-19 13 Hives, Unknown [facility] Repository (4 sources) Penicillins Drug allergy (disorder) 04-06-19 13 Unknown Reaction [facility] Repository (20 sources) levETIRAcetam; Translations: [levetiracetam] Drug Allergy 12-13-19 22 Hallucinations , Other [facility] (20 sources) milnacipran; Translations: [milnacipran] Drug Allergy 12-13-19 22 hives, Hallucinations , Other, Unknown [facility] (18 sources) Prochlorperazin e; Translations: [prochlorperazi ne] Drug Allergy 12-13-19 22 Unknown, Other [facility] (2 sources) Penicillin G Drug Allergy as a child [employer] Other (2 sources) Tetracaine Drug Allergy Unknown [employer] Other (15 sources) Penicillins Drug Intolerance 12-13-19 22 Anaphylaxis [facility] (15 sources) Other Propensity to adverse reactions 12-13-19 22 Other [facility] (15 sources) Wound Dressing Adhesive Drug Allergy 09-20-19 23 Rash, Unknown [facility] (11 sources) Eszopiclone Drug Allergy 09-21-19 24 Hallucinations , Anaphylaxis [facility] (1 source) Penicillin Drug Allergy 12-20-19 23 [facility] (1 source) Penicillins Drug allergy (disorder) 03-23-20 23 [facility] (1 source) Tetracaine Drug Allergy 12-20-19 23 [facility] Medications Current Medications Medication Drug Class(es) Dates Sig (Normalized) Sig (Original) amLODIPine 10 mg oral tablet (20 sources) Dihydropyridine Calcium Channel Jim Start: 01-04-2024 End: 04-03-2024 take 1 tablet by mouth once daily amLODIPine (Norvasc) 10 MG tablet Indications: Essential (primary) hypertension (CMS/HCC) Take 1 tablet (10 mg) by mouth Daily 30 tablet 5 02/24/2024 03/25/2024 Active Start: 11-17-2022 take 10 mg by [...] Orally Active biotin 5 mg oral tablet (17 sources) biotin 5 MG tabl et Pt taking OTC ([employer]) Active biotin 1 MG caps ule Biotin [...] 2022 7:25pm Calcium Citrate / Vitamin D (15 sources) Calcium Citrate- Vitamin D (CITRACAL + D PO) Pt taking OTC ([employer]) Active Calcium Citrate- Vitamin D (CITRACAL + D PO) Citracal + D 0 Active cariprazine 4.5 mg oral capsule (19 sources) Atypical Antipsychotic Start: 09-21-2023 take 1 capsule by mouth once daily Cariprazine HCl (Vraylar) 4.5 MG capsule Take 4.5 mg by mouth Daily 09/21/2023 Active Start: 11-17-2022 take 1 capsule by mo uth once daily Cariprazine (Vraylar) 4.5 mg capsule Active 4.5 MG PO Daily November 16, 2022 11:00pm carvedilol 12.5 mg oral tablet (15 sources) alpha-Adrenergic Jim, beta-Adrenergic Jim Start: 01-04-2024 [...] Active cetirizine hydrochloride 10 mg oral tablet (20 sources) Histamine-1 Receptor Antagonist Start: 01-04-2024 End: 04-03-2024 take 1 tablet by mouth once daily cetirizine (ZyrTEC) 10 MG tablet Indications: Allergic rhinitis, unspecified Take 1 tablet (10 mg) by mouth Daily 30 tablet 5 02/24/2024 03/25/2024 Active Start: 11-17-2022 take 10 mg by mouth once daily Cetirizine Active 10 MG PO Daily November 16, 2022 11:00pm clonazePAM 1 mg oral tablet (20 sources) Benzodiazepine Start: 12-13-2023 End: 02-04-2024 take [...] DULoxetine 60 mg delayed release oral capsule (20 sources) Serotonin and Norepinephrine Reuptake Inhibitor Start: [...] DAY Active fluconazole 150 mg oral tablet (20 sources) Azole Antifungal Start: 11-27-2023 fluconazole ( [...] propionate 0.05 mg/actuat metered dose nasal spray (18 sources) Corticosteroid Start: 02-29-2024 End: 03-30-2024 take 2 spray(s) nasal route once daily fluticasone (Flonase) 50 MCG/ACT nasal spray Indications: Allergic rhinitis, unspecified Administer 2 sprays into each nostril Daily 16 g 5 02/29/2024 03/30/2024 Active Start: 01-04-2024 End: 02-03-2024 take 2 spray(s) [...] Active losartan potassium 100 mg oral tablet (20 sources) Angiotensin 2 Receptor Jim Start: 4 End: 4 take 1 tablet by mouth once daily losartan (Cozaar) 100 MG tablet Indications: Essential (primary) hypertension (CMS/HCC) Take 1 tablet (100 mg) by mouth Daily 30 tablet 5 02/24/2024 03/25/2024 Active Start: 11-17-2022 take 100 mg by mouth once lissett y Losartan Active 100 MG PO Daily November 16, 2022 11:00pm Magnesium (17 sources) Magnesium 400 MG capsule Pt taking OTC([employer]) Active Magnesium 400 MG capsule magnesium 0 Active take 1 tablet by mouth once lissett y Magnesium 400 MG 1 tablet with a meal Orally Once a day Active melatonin 10 mg oral tablet (14 sources) Start: 03-23-2023 take 20 mg by mouth at bedtime Melatonin Active 20 MG PO Bedtime March 23, 2023 12:00am take 1 tablet by mouth at bedtim e Melatonin 12 MG tablet Indications: from [facility] Take 1 tablet by mouth at bedtime Active take 2 tablets by mo ut once daily at bedtime Melatonin 10 MG 2 TABLETS Orally QHS Act hemant Melatonin 12 MG tablet dispe rsible (4 sources) Melatonin 12 MG tablet dispersible 1 (one) time each day at the same time. 0 Active Multiple Vitamins-Minerals ( BARIATRIC MULTIVITAMINS/IRON PO) (15 sources) Multiple Vitamin s-Minerals (BARIATRIC MULTIVITAMINS/IRON PO) Pt taking OTC ([facility]) Active Multiple Vitamin s-Minerals (BARIATRIC MULTIVITAMINS/IRON PO) Bariatric Multivitamins/Iron 0 Active Uqpckjpwqhdo-Xle-Kywb-Fa-Vit K (Bariatric Multivitamins) 45 mg iron- 800 mcg-120 mcg Capsule (2 sources) Start: 11-17-2022 take 1 capsule by mouth once daily Scbvjethnhzp-Csb-Bemw-Fa-Vit K (Bariatric Multivitamins) 45 mg iron- 800 mcg-120 mcg Capsule Active 1 CAP PO Daily November 16, 2022 11:00pm Start: 11-17-2022 take 1 capsule by mo uth once daily Nmdnxvbycyme-Pkf-Waat-Fa-Vit K (Bariatri c Multivitamins) 45 mg iron- 800 mcg-120 mcg Capsule Active 1 CAP PO Daily November 17, 2022 12:00am nystatin 100 unt/mg topical powder (15 sources) Polyene Antifungal nystatin (Myc ostatin) 715346 UNIT/GM powder Apply 1 application topically in [...] omeprazole 20 mg delayed release oral capsule (16 sources) Proton Pump Inhibitor Start: 10-05-2023 take [...] 2022 11:00pm rOPINIRole 4 mg oral tablet (19 sources) Nonergot Dopamine Agonist Start: 10-14-2023 take [...] 06/02/2022 Active spironolactone 25 mg oral tablet (9 sources) Aldosterone Antagonist Start: 12-30-2023 End: 01-29-2024 take 2 tablets by mouth once daily spironolactone (Aldactone) 25 MG tablet Indications: Lower extremity edema Take 2 tablets (50 mg) by mouth Daily 60 tablet 2 12/30/2023 Active sulfamethoxazole 800 mg / trimethoprim 160 mg oral tablet (9 sources) Dihydrofolate Reductase Inhibitor Antibacterial, Sulfonamide Antimicrobial Start: 01-21-2024 take 1 tablet by mouth once in the morning, then take 1 tablet by mouth once at bedtime sulfamethoxazole-tr imethoprim (Bactrim DS) 800-160 MG per tablet Take 1 tablet by mouth in the morning and 1 tablet before bedtime. 01/21/2024 Active tiZANidine 4 mg oral tablet (19 sources) Central alpha-2 Adrenergic Agonist Start: 12-12-2023 [...] Active traZODone hydrochloride 150 mg oral tablet (20 sources) Serotonin Reuptake Inhibitor Start: 11-17-2022 take [...] Date Documented Date Episodic/Chronic Acute cerebrovascular disease (15 sources) Cerebrovascular accident; Translations: [Cerebral infarction, unspecified] [...] HYPERCHOLESTEROLEMIA UNSPEC] Onset: 07-17-19 Chronic Esophageal disorders (18 sources) Gastro-esophageal reflux disease without esophagitis; Translations: [Gastroesophageal reflux disease] Onset: 07-17-1905-18-2023 Chronic Essential hypertension (20 sources) Essential (primary) hypertension; Translations: [Hypertensive disorder] Onset: 07-17-19 Chronic Immunizations and screening for infectious disease (11 sources) Encounter for immunization; Translations: [Needs influenza immunization] Onset: 02-22-20 22 01-28-2024 Episodic Mood disorders (20 sources) Bipolar disorder, current episode depressed, severe, without psychotic features; Translations: [Unspecified mood [affective] disorder] Onset: 11-23-19 22 11-17-2022 Chronic Osteoarthritis (16 sources) Primary osteoarthritis, right ankle and foot; Translations: [Osteoarthritis of knee] Onset: 10-03-19 18 03-25-2023 Chronic Osteoporosis (15 sources) Osteoporosis; Translations: [Age-related osteoporosis without current pathological fracture] Onset: 05-18-1905-18-2023 Chronic Other and ill-defined heart disease (15 sources) Diastolic dysfunction; Translations: [Other ill-defined heart diseases] Onset: 05-18-1905-18-2023 Chronic Other connective tissue disease (1 source) Fibromyalgia; Translations: [FIBROMYALGIA] Onset: 07-17-19 Episodic Other connective tissue disease (4 sources) Radial styloid tenosynovitis [de Quervain]; Translations: [RADIAL STYLOID TENOSYNOVITIS] Onset: 06-12-19 Episodic Other connective tissue disease (2 sources) Weakness of face muscles; Translations: [Facial weakness] 11-18-2022 Episodic Other diseases of bladder and urethra (17 sources) Overactive bladder; Translations: [Overactive bladder] Onset: 05-18-19 24 05-18-2023 Chronic Other gastrointestinal disorders (1 source) Bariatric surgery status; Translations: [BARIATRIC SURGERY STATUS] Onset: 08-01-19 Episodic Other hereditary and degenerative nervous system conditions (18 sources) Restless legs; Translations: [Restless legs syndrome] [...] Onset: 04-03-20 Chronic Other nervous system disorders (17 sources) Chronic pain syndrome; Translations: [Chronic pain syndrome] Onset: 05-18-1905-18-2023 Chronic Other nervous system disorders (11 sources) Metabolic encephalopathy; Translations: [Metabolic encephalopathy] Onset: 08-26-1912-08-2023 Chronic Other nervous system disorders (11 sources) Lesion of brain; Translations: [Disorder of brain, unspecified] Onset: 10-11-1910-11-2023 Chronic Other nervous system disorders (11 sources) Carpal tunnel syndrome of right wrist; Translations: [Carpal tunnel syndrome, right upper limb] Onset: 10-11-1910-11-2023 Chronic Other nervous system disorders (11 sources) Disorder of brain; Translations: [Central pain [...] Chronic Other nutritional; endocrine; and metabolic disorders (20 sources) Morbid obesity; Translations: [Morbid (severe) obesity due to excess calories] Onset: 03-25-2003-25-2023 Chronic Other upper respiratory disease (17 sources) Allergic rhinitis; Translations: [Allergic rhinitis, unspecified] Onset: 05-18-1905-18-2023 Chronic Paralysis (15 sources) Right hemiparesis; Translations: [Hemiplegia, unspecified affecting right dominant side] Onset: 05-18-1905-18-2023 Chronic Residual codes; unclassified (1 source) Sleep apnea, unspecified; Translations: [SLEEP APNEA UNSPECIFIED] Onset: 07-17-19 Chronic Residual codes; unclassified (19 sources) Obstructive sleep apnea syndrome; Translations: [Obstructive [...] classified; Translations: [Chronic back pain ] Onset: 08-24-19 22 11-20-2022 Episodic Substance-related disorders (19 sources) Tobacco dependence syndrome; Translations: [Nicotine dependence, unspecified, uncomplicated] Onset: 05-18-19 24 05-18-2023 Chronic Unclassified (3 sources) LOW BACK PAIN, UNSPECIFIED; Translations: [LOW BACK PAIN, UNSPECIFIED] Onset: 06-30-19 Unclassified (1 source) Encounter for screening for malignant neoplasm of colon; Translations: [Encounter for screening for malignant neoplasm of colon] Onset: 03-23-20 Urinary tract infections (20 sources) Urinary tract infectious disease; Translations: [Urinary tract infection, site not specified] Onset: 05-21-19 Resolved : 10-21-19 24 11-18-2022 Episodic Past or Other Problems Problem Classification Problem Date Documented Da te Episodic/Chronic Abdominal hernia (15 sources) Hiatal hernia; Translations: [Diaphragmatic hernia without obstruction or gangrene] Onset: 05-18-2023 05-18-2023 Episodic Conditions associated with dizziness or vertigo (20 sources) Benign paroxysmal positional vertigo; Translations: [Benign paroxysmal vertigo, unspecified ear] Onset: 05-18-2023 05-18-2023 Episodic Deficiency and other anemia (15 sources) Anemia; Translations: [Anemia, unspecified] Onset: 05-18-2023 05-18-2023 Episodic Diabetes mellitus without complication (18 sources) Prediabetes; Translations: [Prediabetes] Onset: 07-31-2022 05-18-2023 Episodic E Codes: Cut/pierceb (1 source) Contact with scissors, initial encounter; Translations: [CONTACT WITH SCISSORS INITIAL ENC] Onset: 02-21-2022 Episodic Fracture of lower limb (15 sources) Closed fracture of patella; Translations: [Unspecified fracture of unspecified patella, initial encounter for closed fracture] Onset: 02-04-2018 Resolved: 10-21-2023 03-25-2023 Episodic Gout and other crystal arthropathies (16 sources) Gout, unspecified; Translations: [Gouty arthritis of right foot] Onset: 11-22-2021 Resolved: 08-17-2023 05-18-2023 Chronic Heart valve disorders (15 sources) Heart murmur; Translations: [Cardiac murmur, unspecified] Onset: 05-18-2023 05-18-2023 Episodic Hemorrhoids (15 sources) Hemorrhoids; Translations: [Unspecified hemorrhoids] Onset: 05-18-2023 05-18-2023 Episodic Influenza (11 sources) Influenza; Translations: [Influenza due to unidentified influenza virus with other respiratory manifestations] Onset: 07-14-2023 Resolved: 10-21-2023 10-21-2023 Episodic Malaise and fatigue (17 sources) Asthenia; Translations: [Weakness] Onset: 05-18-2023 Resolved: 05-18-2023 05-31-2018 Episodic Mood disorders (15 sources) Mood disorders; Translations: [DEPRESSION UNSPECIFIED] Onset: 04-29-2022 05-18-2023 Mycoses (17 sources) Candidiasis of skin and nail; Translations: [Candidiasis of skin] Onset: 05-18-2023 Episodic Nonmalignant breast conditions (15 sources) Hematoma of right breast; Translations: [Other specified disorders of breast] Onset: 05-18-2023 Resolved: 05-18-2023 05-18-2023 Episodic Nutritional deficiencies (12 sources) Iron deficiency; Translations: [Vitamin deficiency] Onset: 07-31-2022 07-23-2023 Episodic Open wounds of extremities (4 sources) Laceration without foreign body of left middle finger without damage to nail, initial encounter; Translations: [LAC W/O FB LT MF W/O DMG NAIL INIT] Onset: 02-20-2022 Episodic Open wounds of head; neck; and trunk (16 sources) Open wound of anterior abdominal wall ; Translations: [Unspecified open wound of abdominal wall, unspecified quadrant without penetration into peritoneal cavity, initial encounter] Onset: 05-18-2023 Resolved: 10-21-2023 05-18-2023 Episodic Other aftercare (1 source) Other fci (current) drug therapy; Translations: [OTH GROUP HOME CURRENT DRUG THERAPY] Onset: 04-29-2022 Episodic Other and unspecified benign neoplasm (15 sources) Polyp of colon; Translations: [Polyp of [...] Onset: 12-18-2021 Episodic Other connective tissue disease (15 sources) Pain in left foot; Translations: [Pain in left foot] Onset: 03-25-2023 Resolved: 08-17-2023 03-25-2023 Episodic Other connective tissue disease (15 sources) Patellar tendonitis; Translations: [Patellar tendinitis, unspecified knee] Onset: 11-20-2016 03-25-2023 Episodic Other connective tissue disease (15 sources) Radial styloid tenosynovitis; Translations: [Radial styloid tenosynovitis [de Quervain]] Onset: 05-18-2023 05-18-2023 Episodic Other connective tissue disease (15 sources) Fibromyalgia; Translations: [Fibromyalgia] Onset: 05-18-2023 05-18-2023 Episodic Other connective tissue disease (11 sources) Tendinitis of right forearm; Translations: [Other enthesopathies, not elsewhere classified] Onset: 10-11-2023 10-11-2023 Episodic Other connective tissue disease (11 sources) Other symptoms and signs involving the musculoskeletal system; Translations: [Other musculoskeletal symptoms referable to limbs] Onset: 10-11-2023 10-11-2023 Episodic Other gastrointestinal disorders (15 sources) History of bariatric surgical procedure; Translations: [Bariatric surgery status] Onset: 05-18-2023 05-18-2023 Episodic Other gastrointestinal disorders (15 sources) Dysphagia; Translations: [Dysphagia, unspecified] Onset: 05-18-2023 05-18-2023 Episodic Other gastrointestinal disorders (15 sources) Constipation; Translations: [Constipation, unspecified] Onset: 05-18-2023 Resolved: 08-17-2023 05-18-2023 Episodic Other lower respiratory disease (11 sources) Cough; Translations: [Acute cough] Onset: 07-14-2023 Resolved: 10-21-2023 10-21-2023 Episodic Other lower respiratory disease (11 sources) Postviral cough; Translations: [Post-viral cough syndrome] Onset: 07-23-2023 Resolved: 10-21-2023 10-21-2023 Episodic Other nervous system disorders (15 sources) Slurred speech; Translations: [Slurred speech] Onset: [...] 11-20-2016 03-25-2023 Episodic Other non-traumatic joint disorders (16 sources) Hip pain; Translations: [Pain in left hip] Onset: 05-18-2023 05-18-2023 Episodic Other nutritional; endocrine; and metabolic disorders (15 sources) Excess panniculus of abdomen; Translations: [Localized adiposity] Onset: 03-25-2023 Resolved: 05-18-2023 05-18-2023 Chronic Other screening for suspected conditions (not mental disorders or infectious disease) (20 sources) Patient encounter status; Translations: [Encounter for [...] EDEMA] Onset: 03-19-2022 Episodic Residual codes; unclassified (17 sources) Edema of lower extremity; Translations: [Localized edema] Onset: 05-18-2023 Resolved: 10-05-2023 05-18-2023 Episodic Residual codes; unclassified (11 sources) At risk of polypharmacy; Translations: [Other specified personal risk factors, not elsewhere classified] Onset: 08-26-2023 09-21-2023 Episodic Residual codes; unclassified (11 sources) Bilateral lower limb edema; Translations: [Localized edema] Onset: 10-05-2023 10-05-2023 Episodic Respiratory failure; insufficiency; arrest (adult) (11 sources) Acute respiratory failure; Translations: [Acute respiratory failure, unspecified whether with hypoxia or hypercapnia] Onset: 08-26-2023 09-21-2023 Episodic Screening and history of mental health and substance abuse codes (12 sources) Personal history of nicotine dependence; Translations: [Ex-cigarette smoker] Onset: 07-16-2022 08-19-2023 Episodic Unclassified (1 source) LOW BACK PAIN, UNSPECIFIED; Translations: [LOW BACK PAIN, UNSPECIFIED] Onset: 06-26-2022 Viral infection (15 sources) Herpes zoster; Translations: [Zoster without complications] Onset: 05-18-2023 Resolved: 05-18-2023 05-18-2023 Episodic Results Test Name Value Interpretation Reference Range Facility IGP,APTIMA HPV,AGE GDLNon AGE GDLN ACOG TESTING Note . [facility] Comment on above: TESTS RESULT FLAG U NITS REF RANGE LAB Clinician Provided Cytology Information Source.............Cervix;Endocervix No. of containers..01 ThinPrep Vial Age Gigi WILDE Tona... 31 FLAG LEGEND: L-Low Normal,H-High Normal,LL-Alert Low,HH-Alert High <-Panic Low,>-Panic High,A-Abnormal,AA-Critical Abnormal Performed at: 01 =[address] [address] Farzana Hennessy MD, HPV APTIMA Negative Negative [facility] Comment on above: This nucleic acid am plification test detects fourteen high- risk HPV types (16,18,31,33,35,39,45,51,52,56,58,59,66,68) without differentiation. Performed at: =[address] [id number] Nurse Care Manager: Farzana Hennessy MD, Phone: [phone] Performed at: [facility] [address] [place] [id number] Nurse Care Manager: Scott Sandoval MD, Phone: [phone] IGP, APTIMA HPV, RFX 16/18,45 Note . [facility] Comment on above: TESTS RESULT FLAG UN ITS REF RANGE LAB DIAGNOSIS: 02 NEGATIVE FOR INTRAEPITHELIAL LESION OR MALIGNANCY. Specimen adequacy: 02 Satisfactory for evaluation. Endocervical and/or squamous metaplastic cells (endocervical component) are present. Performed by: 02 Adelaida Bustamante, Security Assessor ([facility]) . 02 Note: Note 03 The Pap smear is a screening test designed to aid in the detection of premalignant and malignant conditions of the uterine cervix. It is not a diagnostic procedure and should not be used as the sole means of detecting cervical cancer. Both false-positive and false-negative reports do occur. Test Methodology: Note 03 This liquid based ThinPrep(R) pap test was screened with the use of an image guided system. HPV Genotype Reflex Note 02 Criteria not met, HPV Genotype not performed. FLAG LEGEND: L-Low Normal,H-High Normal,LL-Alert Low,HH-Alert High <-Panic Low,>-Panic High,A-Abnormal,AA-Critical Abnormal Performed at: 02 [facility] [address] [place] [address] Scott Sandoval MD, 03 WB [facility] [address] [address] Farzana Hennessy MD, BROOM-ALONE CERVIX ENDOCERVIX [facility] Urinalysis macro (dipstick) panel (U)on 01-28-2024 Bilirubin, UA Negative Negative - 4(70) +++ mg/dL [facility] Blood, UA Negative Negative - 50 Kranthi/mcL [facility] Clarity, UA Clear [facility] Color, UA Dark Tania [facility] Glucose, UA Negative Negative - 2000(110) ++++ mg/dL [facility] Interpretation and review of laboratory results Abnormal [facility] Ketones, UA Negative Negative - 160(16) ++++ mg/dL [facility] Leukocytes, UA Trace Negative - 500+++ Radha/mcL [facility] Nitrite, UA Negative Negative - Positive [facility] pH, UA 5.5 5 - 9 [facility] Protein, UA Negative Negative - 2000(20) ++++ mg/dL [facility] Spec Grav, UA 1.025 1 - 1.03 [facility] Urobilinogen, UA 0.2 0.2 - 12 mg/dL [facility] MHPT CULT,URINEon 01-23-2024 Interpretation and review of laboratory results [facility] Spec[facility] Description .CLEAN CATCH URINE [facility] MHPT CULT,URINE Culture ESCHERICHIA COLI >100,000 CFU/ML [facility] STREPTOCOCCI, BETA HEMOLYTIC GROUP B 10 to 50,000 CFU/ML [facility] Report Status FINAL 01/23/2024 [facility] MHPT CULT,URINE SUSCEPTIBILITY [facility] MHPT CULT,URINE Organism ESCHERICHIA COLI [facility] Method CROW [facility] Ampicillin 16 INTERMEDIATE Intermediate [facility] Cefazolin <=4 SUSCEPTIBLE Susceptible [facility] Cefazolin sensitivit y results can be used to predict the effectiveness of oral Susceptible [facility] cephalosporins (eg. Cephalexin) in uncomplicated Urinary Tract Infections due Susceptible [facility] MHPT CULT,URINE to E. coli, K. pneumoniae, and P. mirabilis Susceptible [facility] MHPT CULT,URINE Ceftriaxone <=0.25 SUSCEPTIBLE Susceptible [facility] MHPT CULT,URINE Negative Susceptible [facility] Gentamicin <=1 SUSCEPTIBLE Susceptible [facility] Levofloxacin <=0.12 SUSCEPTIBLE Susceptible [facility] Nitrofurantoin <=16 SUSCEPTIBLE Susceptible [facility] Piperacillin/Tazobac ta m <=4 SUSCEPTIBLE Susceptible [facility] MHPT CULT,URINE Tobramycin <=1 SUSCEPTIBLE Susceptible [facility] MHPT CULT,URINE Trimethoprim/Sulfa <=20 SUSCEPTIBLE Susceptible [facility] Original Ordering Provider: RICHA DAVENPORT [facility] ALL BASIC METABOLIC PANELon 01-05-2024 Anion gap [Moles/Vol] 11.1 mmol/L [facility] Calcium [Mass/Vol] 9.2 mg/dL 8.5 - 10. 1 mg/dL [facility] Chloride [Moles/Vol] 105 mmol/L 98 - 10 7 mmol/L [facility] CO2 [Moles/Vol] 28.0 mmol/L 21.0 - 32.0 mmol/L [facility] Creatinine [Mass/Vol] 1.08 mg/dL High 0.55 - 1.02 mg/dL [facility] GFR/1.73 sq M.predicted CKD-EPI (S/P/Bld) [Vol rate/Area] >60 60 - PINF [facility] Glucose [Mass/Vol] 92 mg/dL 74 - 106 mg/dL [facility] Interpretation and review of laboratory results Abnormal [facility] Potassium [Moles/Vol] 4.1 mmol/L 3.5 - 5.1 mmol/L [facility] Sodium [Moles/Vol] 140 mmol/L 136 - 145 mmol/L [facility] TBH EGFR-NON AF DJIBOUTIAN 51 Low 60 - PINF [facility] Urea nitrogen [Mass/Vol] 17.0 mg/dL 7.0 - 18.0 mg/dL [facility] Urea nitrogen/Creatinine [Mass ratio] 15.7 mg/mg [facility] Amphetamine Screen Ql (U)Ord ered By: Jace Graham on 03-23-2023 Amphetamines Ql (U) Negative Negative [facility] Barbiturates [Presence] in U rine by Screen methodOrdered By: Jace Graham on 03-23-2023 Barbiturates Screen Ql (U) Negative Negative [facility] Benzodiazepines Screen Ql (U )Ordered By: Jace Graham on 03-23-2023 Benzodiazepines Ql (U) Negative Negative [facility] Benzoylecgonine [Presence] i n Urine by Screen methodOrdered By: Jace Graham on 03-23-2023 Benzoylecgonine Screen Ql (U) Negative Negative [facility] Cannabinoids [Presence] in U rine by Screen methodOrdered By: Jace Graham on 03-23-2023 Cannabinoids Screen Ql (U) Negative Negative [facility] Comment on above: These are unconfirme d results and should not be used for legal purposes. Drug Cut-Off Concentration: AMPH 1000 ng/mL ELKIN 200 ng/mL ATIYA 200 ng/mL COCM 300 ng/mL OP 300 ng/mL PCP 25 ng/mL THC 20 ng/mL Drug Screen,Urineon 03-23-20 Amphetamine Screen,Urine Negative Normal Negative [facility] Comment on above: Performed By: #### U RDS #### [address] Barbiturate Screen,Urine Negative Normal Negative [facility] Comment on above: Performed By: #### U RDS #### [address] Benzodiazepines Screen,Urine Negative Normal Negative [facility] Comment on above: Performed By: #### U RDS #### [address] Cannabinoid Screen,Urine Negative Normal Negative [facility] Comment on above: Result Comment: Thes e are unconfirmed results and should not be used for legal purposes. Drug Cut-Off Concentration: AMPH 1000 ng/mL ELKIN 200 ng/mL ATIYA 200 ng/mL COCM 300 ng/mL OP 300 ng/mL PCP 25 ng/mL THC 20 ng/mL PERFORMED BY: [place] [address] PATHOLOGIST DIETARY ASSISTANT AN CURRY M.D. Performed By: #### U RDS #### [address] Cocaine Screen,Urine Negative Normal Negative [facility] Comment on above: Performed By: #### U RDS #### [address] Opiate Screen,Urine Negative Normal Negative [facility] Comment on above: Performed By: #### U RDS #### [address] Phencyclidine Screen,Urine Negative Normal Negative [facility] Comment on above: Performed By: #### U RDS #### [address] Opiates [Presence] in Urine by Screen methodOrdered By: Jace Graham on 03-23-2023 Opiates Screen Ql (U) Negative Negative [facility] Phencyclidine Screen Ql (U)O rdered By: Jace Graham on 03-23-2023 Phencyclidine Ql (U) Negative Negative [facility] Cholesterol [Mass/volume] in Serum or PlasmaOrdered By: Eduardo Monk on 11-18-2022 Cholesterol [Mass/Vol] 159 mg/dL 140-200 [facility] Comment on above: Chol less than 200 m g/dl low riskChol 201-239 mg/dl borderline riskChol 240 mg/dl and greater high risk Cholesterol in LDL Calc [Mas s/Vol]Ordered By: Eduardo Monk on 11-18-2022 Cholesterol in LDL [Mass/Vol] 84 mg/dL 0-100 [facility] Comment on above: LDL ATP III CLASSIFI CATIONLDL less than 100 mg/dL OptimalLDL 100-129 mg/dL Near or above optimalLDL 130-159 mg/dL Borderline highLDL 160-189 mg/dL HighLDL greater than 189 mg/dL Very high Cholesterol in VLDL Calc [Ma ss/Vol]Ordered By: Eduardo Monk on 11-18-2022 Cholesterol in VLDL [Mass/Vol] 28 mg/dL [facility] Serum or plasma high density lipoprotein (HDL) cholesterol measurementOrdered By: Eduardo Monk on 11-18-2022 Cholesterol in HDL [Mass/Vol] 46 mg/dL 23-92 [facility] Comment on above: HDL CHOL ATP-III CLA SSIFICATION Cardiovascular RiskHDL > or equal to 60 mg/dL LOWHDL < 40 mg/dL HIGH Serum or plasma total choles terol/high density lipoprotein (HDL) cholesterol mass ratOrdered By: Eduardo Monk on 11-18-2022 Cholesterol.total/Chol esterol in HDL [Mass ratio] 3.5 {ratio} <5.0 [facility] Thyrotropin [Units/volume] i n Serum or PlasmaOrdered By: Eduardo Monk on 11-18-2022 TSH Qn 2.13 m[IU]/L 0.45-5.33 [facility] Triglyceride [Mass/volume] i n Serum or PlasmaOrdered By: Eduardo Monk on 11-18-2022 Triglyceride [Mass/Vol] 144 mg/dL 0-149 [facility] Comment on above: TRIG ATP III CLASSIF ICATIONTRIG less than 150 mg/dL NormalTRIG 150-199 mg/dL Borderline highTRIG 200-500 mg/dL High TRIG greater than 500 mg/dL Very highStandard traceable to the Center for Disease Conrtrol and Prevention (CDC) test method. Vitamin D+Metabolites [Mass/ volume] in Serum or PlasmaOrdered By: Eduardo Monk on 11-18-2022 Vitamin D+Metabolites [Mass/Vol] 50.4 ng/mL 30-100 [facility] Comment on above: VITAMIN D STATUS 25( OH)VITAMIN D RANGE (ng/mL) Deficient <20 Insufficient 20 to <30Sufficient 30 to 100Reference: Bin MF,Lakshmi CABRERA, Cristian SMART, et al. Evaluation,treatment, and prevention of vitamin D deficiency; an Endocrine Society clinical practice guideline. JCEM. 2010; 96(7):1911-30. CBC AUTO DIFFon 07-25-2022 BASO # 0.1 103/ul Normal 0.0-0.1 [facility] Comment on above: Performed By: #### A 1C #### [facility] [address] [place] [address] Dr. Bebeto Alvarado Basophils/100 WBC (Bld) 0.6 % Normal 0.2-2.0 [facility] Comment on above: Performed By: #### A 1C #### [facility] [address] [place] [address] Dr. Bebeto Alvarado EO # 0.2 103/ul Normal 0.0-0.7 [facility] Comment on above: Performed By: #### A 1C #### [facility] [address] [place] [address] Dr. Bebeto Alvarado Eosinophils/100 WBC (Bld) 2.3 % Normal 0.9-7.0 [facility] Comment on above: Performed By: #### A 1C #### [facility] [address] [place] [address] Dr. Bebeto Alvarado Erythrocyte distribution width (RBC) [Ratio] 13.8 % Normal 11.0-15.0 [facility] Comment on above: Performed By: #### A 1C #### [facility] [address] [place] [address] Dr. Bebeto Alvarado Hematocrit (Bld) [Volume fraction] 41.2 % Normal 36.0-48.0 [facility] Comment on above: Performed By: #### A 1C #### [facility] [address] [place] [address] Dr. Bebeto Alvarado Hemoglobin (Bld) [Mass/Vol] 13.2 g/dL Normal 12.0-16.0 [facility] Comment on above: Performed By: #### A 1C #### [facility] [address] [place] [address] Dr. Bebeto Alvarado IG # 0.03 10e3/ul Normal 0.00-0.03 [facility] Comment on above: Performed By: #### A 1C #### [facility] [address] [place] [address] Dr. Bebeto Alvarado IG % 0.4 % Normal 0.0-0.5 [facility] Comment on above: Performed By: #### A 1C #### [facility] [address] [place] [address] Dr. Bebeto Alvarado LYMPH # 2.1 103/ul Normal 1.2-3.8 [facility] Comment on above: Performed By: #### A 1C #### [facility] [address] [place] [address] Dr. Bebeto Alvarado Lymphocytes/100 WBC (Bld) 25.9 % Normal 20.5-60.0 [facility] Comment on above: Performed By: #### A 1C #### [facility] [address] [place] [address] Dr. Bebeto Alvarado MANUAL DIFF REQ NO Normal [facility] Comment on above: Performed By: #### A 1C #### [facility] [address] [place] [address] Dr. Bebeto Alvarado MCH (RBC) [Entitic mass] 28.0 pg Normal 26.7-34.0 [facility] Comment on above: Performed By: #### A 1C #### [facility] [address] [place] [address] Dr. Bebeto Alvarado MCHC (RBC) [Mass/Vol] 32.0 g/dL Normal 29.9-35.2 [facility] Comment on above: Performed By: #### A 1C #### [facility] [address] [place] [address] Dr. Bebeto Alvarado MCV (RBC) [Entitic vol] 87.5 fL Normal 81.0-99.0 [facility] Comment on above: Performed By: #### A 1C #### [facility] [address] [place] [address] Dr. Bebeto Alvarado MONO # 0.5 103/ul Normal 0.3-0.8 [facility] Comment on above: Performed By: #### A 1C #### [facility] [address] [place] [address] Dr. Bebeto Alvarado Monocytes/100 WBC (Bld) 6.6 % Normal 1.7-12.0 [facility] Comment on above: Performed By: #### A 1C #### [facility] [address] [place] [address] Dr. Bebeto Alvarado NEUT # 5.1 103/ul Normal 1.4-6.5 [facility] Comment on above: Performed By: #### A 1C #### [facility] [address] [place] [address] Dr. Bebeto Alvarado Neutrophils/100 WBC (Bld) 64.2 % Normal 43.0-75.0 [facility] Comment on above: Performed By: #### A 1C #### [facility] [address] [place] [address] Dr. Bebeto Alvarado Platelet mean volume (Bld) [Entitic vol] 11.2 fL Normal 9.5-13.5 [facility] Comment on above: Performed By: #### A 1C #### [facility] [address] [place] [address] Dr. Bebeto Alvarado PLT 252 103/ul Normal 150-450 [facility] Comment on above: Performed By: #### A 1C #### [facility] [address] [address] [address] Bebeto Alvarado RBC 4.71 106/ul Normal 4.20-5.40 [facility] Comment on above: Performed By: #### A 1C #### [facility] [address] [place] [address] Dr. Bebeto Alvarado WBC 8.0 103/ul Normal 4.0-11.0 [facility] Comment on above: Performed By: #### A 1C #### [facility] [address] [place] [address] Dr. Bebeto Alvarado GLYCOHEMOGLOBIN A1Con 2022 ADA RECOMMENDATION SEE BELOW Normal [facility] Comment on above: Result Comment: ADA RECOMMENDED LIMIT 4.0 - 6.0 ADA THERAPEUTIC TARGET < 7.0 ACTION SUGGESTED > 7.0 Performed By: #### A 1C #### [facility] [address] [address] [address] Bebeto Alvarado Glucose [Mass/Vol] 114 mg/dL Normal [facility] Comment on above: Performed By: #### A 1C #### [facility] [address] [place] [address] Dr. Bebeto Alvarado HbA1c (Bld) [Mass fraction] 5.6 % Normal 4.5-6.2 [facility] Comment on above: Performed By: #### A 1C #### [facility] [address] [place] [address] Dr. Bebeto Alvarado IRONon 07-25-2022 Iron [Mass/Vol] 60.0 ug/dL Normal 50.0-170.0 [facility] Comment on above: Performed By: #### V ITB12, IRON #### [facility] [address] [place] [address] Dr. Bebeto Alvarado LIPID PROFILEon 07-25-2022 CHOL-HDL RATIO NORM SEE BELOW Normal [facility] Comment on above: Result Comment: 3.3 - 4.4 LOW RISK 4.4 - 7.1 AVERAGE RISK 7.1 - 11.0 MODERATE RISK >11.0 HIGH RISK Performed By: #### C MP, LIPID #### [facility] [address] [address] [address] Bebeto Alvarado Cholesterol [Mass/Vol] 144 mg/dL Normal <=200 [facility] Comment on above: Performed By: #### C MP, LIPID #### [facility] [address] [address] [address] Bebeto Alvarado Cholesterol in HDL [Mass/Vol] 39 mg/dL Critically low 40-60 [facility] Comment on above: Performed By: #### C MP, LIPID #### [facility] [address] [address] [address] Bebeto Alvarado Cholesterol in LDL [Mass/Vol] 74.6 mg/dL Normal [facility] Comment on above: Performed By: #### C MP, LIPID #### [facility] [address] [place] [address] Dr. Bebeto Alvarado Cholesterol.total/Chol esterol in HDL [Mass ratio] 3.7 {ratio} Normal [facility] Comment on above: Performed By: #### C MP, LIPID #### [facility] [address] [address] [address] Bebeto Alvarado HDL NORMAL > or = 60 mg/dl - LO W CARDIOVASCULAR RISK <40 mg/dl - HIGH CARDIOVASCULAR RISK Normal [facility] Comment on above: Performed By: #### C MP, LIPID #### [facility] [address] [address] [address] Bebeto Alvarado LDL CALC NORMAL SEE BELOW Normal [facility] Comment on above: Result Comment: <100 mg/dl OPTIMAL 100 - 129 mg/dl NEAR OR ABOVE OPTIMAL 130 - 159 mg/dl BORDERLINE HIGH 160 - 189 mg/dl HIGH >190 mg/dl VERY HIGH Performed By: #### C MP, LIPID #### [facility] [address] [address] [address] Bebeto Alvarado Triglyceride [Mass/Vol] 152 mg/dL Critically high <=150 [facility] Comment on above: Performed By: #### C MP, LIPID #### [facility] [address] [address] [address] Bebeto Alvarado VLDL CALC 30.4 mg/dL Normal [facility] Comment on above: Performed By: #### C MP, LIPID #### [facility] [address] [place] [address] Dr. Bebeto Alvarado PROF 14(COMP METB)on 023 Albumin [Mass/Vol] 3.7 g/dL Normal 3.4-5.0 [facility] Comment on above: Performed By: #### C MP, LIPID #### [facility] [address] [place] [address] Dr. Bebeto Alvarado Albumin/Globulin [Mass ratio] 0.9 {ratio} Normal [facility] Comment on above: Performed By: #### C MP, LIPID #### [facility] [address] [place] [address] Dr. Bebeto Alvarado ALP [Catalytic activity/Vol] 90 U/L Normal 46-116 [facility] Comment on above: Performed By: #### C MP, LIPID #### [facility] [address] [place] [address] Dr. Bebeto Alvarado ALT [Catalytic activity/Vol] 38 U/L Normal 14-59 [facility] Comment on above: Performed By: #### C MP, LIPID #### [facility] [address] [place] [address] Dr. Bebeto Alvarado Anion gap [Moles/Vol] 12.1 mmol/L Normal [facility] Comment on above: Performed By: #### C MP, LIPID #### [facility] [address] [place] [address] Dr. Bebeto Alvarado AST [Catalytic activity/Vol] 26 U/L Normal 15-37 [facility] Comment on above: Performed By: #### C MP, LIPID #### [facility] [address] [place] [address] Dr. Bebeto Alvarado Bilirubin [Mass/Vol] 0.3 mg/dL Normal 0.2-1.0 [facility] Comment on above: Performed By: #### C MP, LIPID #### [facility] [address] [place] [address] Dr. Bebeto Alvarado Calcium [Mass/Vol] 9.3 mg/dL Normal 8.5-10.1 [facility] Comment on above: Performed By: #### C MP, LIPID #### [facility] [address] [place] [address] Dr. Bebeto Alvarado Chloride [Moles/Vol] 107 mmol/L Normal 98-107 [facility] Comment on above: Performed By: #### C MP, LIPID #### [facility] [address] [place] [address] Dr. Bebeto Alvarado CO2 [Moles/Vol] 27.9 mmol/L Normal 21.0-32.0 [facility] Comment on above: Performed By: #### C MP, LIPID #### [facility] Laboratory [address] [place] [address] Dr. Bebeto Alvarado Creatinine [Mass/Vol] 0.95 mg/dL Normal 0.55-1.02 [facility] Comment on above: Performed By: #### C MP, LIPID #### [facility] [address] [place] [address] Dr. Bebeto Alvarado EGFR-AF DJIBOUTIAN >60 Normal >=60 [facility] Comment on above: Performed By: #### C MP, LIPID #### [facility] [address] [place] [address] Dr. Bebeto Alvarado EGFR-NON AF DJIBOUTIAN 60 mL/min/1.73m2 Normal >=60 [facility] Comment on above: Performed By: #### C MP, LIPID #### [facility] [address] [place] [address] Dr. Bebeto Alvarado Globulin (S) [Mass/Vol] 3.9 g/dL Normal [facility] Comment on above: Performed By: #### C MP, LIPID #### [facility] [address] [place] [address] Dr. Bebeto Alvarado Glucose [Mass/Vol] 108 mg/dL Critically high 74-106 [facility] Comment on above: Performed By: #### C MP, LIPID #### [facility] [address] [place] [address] Dr. Bebeto Alvarado Potassium [Moles/Vol] 4.0 mmol/L Normal 3.5-5.1 [facility] Comment on above: Performed By: #### C MP, LIPID #### [facility] [address] [place] [address] Dr. Bebeto Alvarado Protein [Mass/Vol] 7.6 g/dL Normal 6.4-8.2 [facility] Comment on above: Performed By: #### C MP, LIPID #### [facility] [address] [place] [address] Dr. Bebeto Alvarado Sodium [Moles/Vol] 143 mmol/L Normal 136-145 [facility] Comment on above: Performed By: #### C MP, LIPID #### [facility] [address] [place] [address] Dr. Bebeto Alvarado Urea nitrogen [Mass/Vol] 15.0 mg/dL Normal 7.0-18.0 [facility] Comment on above: Performed By: #### C MP, LIPID #### [facility] [address] [place] [address] Dr. Bebeto Alvarado Urea nitrogen/Creatinine [Mass ratio] 15.8 mg/mg Normal [facility] Comment on above: Performed By: #### C MP, LIPID #### [facility] [address] [place] [address] Dr. Bebeto Alvarado UA RANDOM W/MICROSCOPICon BACTERIA NONE SEEN Normal NONE SEEN [facility] Comment on above: Performed By: #### A 1C #### [facility] [address] [place] [address] Dr. Bebeto Alvarado Bilirubin Ql (U) Negative Normal NEGATIVE [facility] Comment on above: Performed By: #### A 1C #### [facility] [address] [place] [address] Dr. Bebeto Alvarado CAST NONE SEEN Normal NONE SEEN [facility] Comment on above: Performed By: #### A 1C #### [facility] [address] [place] [address] Dr. Bebeto Alvarado Clarity (U) CLEAR Normal CLEAR [facility] Comment on above: Performed By: #### A 1C #### [facility] [address] [place] [address] Dr. Bebeto Alvarado Color (U) YELLOW Normal YELLOW [facility] Comment on above: Performed By: #### A 1C #### [facility] [address] [place] [address] Dr. Bebeto Alvarado Crystals LM Nom (Urine sed) NONE SEEN Normal NONE SEEN [facility] Comment on above: Performed By: #### A 1C #### [facility] [address] [place] [address] Dr. Bebeto Alvarado Epithelial cells LM Ql (Urine sed) NONE SEEN Normal NONE SEEN /RARE [facility] Comment on above: Performed By: #### A 1C #### [facility] [address] [place] [address] Dr. Bebeto Alvarado Glucose Ql (U) Negative Normal NEGATIVE [facility] Comment on above: Performed By: #### A 1C #### [facility] [address] [place] [address] Dr. Bebeto Alvarado Hemoglobin Ql (U) Negative Normal NEGATIVE [facility] Comment on above: Performed By: #### A 1C #### [facility] [address] [place] [address] Dr. Bebeto Alvarado Ketones Ql (U) Negative Normal NEGATIVE [facility] Comment on above: Performed By: #### A 1C #### [facility] [address] [place] [address] Dr. Bebeto Alvarado LEUKOCYTES Negative Normal NEGATIVE [facility] Comment on above: Performed By: #### A 1C #### [facility] [address] [place] [address] Dr. Bebeto Alvarado MUCOUS NONE SEEN Normal NONE SEEN [facility] Comment on above: Performed By: #### A 1C #### [facility] [address] [place] [address] Dr. Bebeto Alvarado Nitrite Ql (U) Negative Normal NEGATIVE [facility] Comment on above: Performed By: #### A 1C #### [facility] [address] [place] [address] Dr. Bebeto Alvarado pH (U) 5.5 [pH] Normal 5-9 [facility] Comment on above: Performed By: #### A 1C #### [facility] [address] [place] [address] Dr. Bebeto Alvarado RBC NONE SEEN Abnormal 0-2 [facility] Comment on above: Performed By: #### A 1C #### [facility] [address] [place] [address] Dr. Bebeto Alvarado SPEC GRAVITY 1.030 Abnormal 1.005-<=1.02 5 [facility] Comment on above: Performed By: #### A 1C #### [facility] [address] [place] [address] Dr. Bebeto Alvarado UA PROTEIN Negative Normal NEGATIVE/ TRACE [facility] Comment on above: Performed By: #### A 1C #### [facility] [address] [place] [address] Dr. Bebeto Alvarado Urobilinogen Qn (U) 0.2 {Katerin'U}/dL Normal 0.2 - 1. 0 [facility] Comment on above: Performed By: #### A 1C #### [facility] [address] [place] [address] Dr. Bebeto Alvarado WBC NONE SEEN Normal NONE SEEN [facility] Comment on above: Performed By: #### A 1C #### [facility] [address] [place] [address] Dr. Bebeto Alvarado VITAMIN B12on 07-25-2022 Cobalamin (Vitamin B12) [Mass/Vol] 1684.0 pg/mL Critically high 193.0-986.0 [facility] Comment on above: Performed By: #### V ITB12, IRON #### [facility] [address] [place] [address] Dr. Bebeto Alvarado PROF CHEM 8 (BAS METB)on Anion gap [Moles/Vol] 12.2 mmol/L Normal Th [facility] Comment on above: Performed By: #### B MP #### [facility] [address] [place] [address] Dr. Bebeto Alvarado Calcium [Mass/Vol] 8.9 mg/dL Normal 8.5-10.1 [facility] Comment on above: Performed By: #### B MP #### [facility] [address] [place] [address] Dr. Bebeto Alvarado Chloride [Moles/Vol] 105 mmol/L Normal 98-107 [facility] Comment on above: Performed By: #### B MP #### [facility] [address] [address] [address] Bebeto Alvarado CO2 [Moles/Vol] 29.6 mmol/L Normal 21.0-32.0 [facility] Comment on above: Performed By: #### B MP #### [facility] [address] [place] [address] Dr. Bebeto Alvarado Creatinine [Mass/Vol] 0.95 mg/dL Normal 0.55-1.02 [facility] Comment on above: Performed By: #### B MP #### [facility] [address] [place] [address] Dr. Bebeto Alvarado EGFR-AF DJIBOUTIAN >60 Normal >=60 [facility] Comment on above: Performed By: #### B MP #### [facility] [address] [place] [address] Dr. Bebeto Alvarado EGFR-NON AF DJIBOUTIAN 60 mL/min/1.73m2 Normal >=60 [facility] Comment on above: Performed By: #### B MP #### [facility] [address] [address] [address] Bebeto Alvarado Glucose [Mass/Vol] 101 mg/dL Normal 74-106 [facility] Comment on above: Performed By: #### B MP #### [facility] [address] [address] [address] Bebeto Alvarado Potassium [Moles/Vol] 3.8 mmol/L Normal 3.5-5.1 [facility] Comment on above: Performed By: #### B MP #### [facility] [address] [place] [address] Dr. Bebeto Alvarado Sodium [Moles/Vol] 143 mmol/L Normal 136-145 [facility] Comment on above: Performed By: #### B MP #### [facility] [address] [place] [address] Dr. Bebeto Alvarado Urea nitrogen [Mass/Vol] 16.0 mg/dL Normal 7.0-18.0 [facility] Comment on above: Performed By: #### B MP #### [facility] [address] [place] [address] Dr. Bebeto Alvarado Urea nitrogen/Creatinine [Mass ratio] 16.8 mg/mg Normal [facility] Comment on above: Performed By: #### B MP #### [facility] [address] [place] [address] Dr. Bebeto Alvarado CBC AUTO DIFFon 11-21-2021 BASO # 0.1 103/ul Normal 0.0-0.1 [facility] Comment on above: Performed By: #### A 1C #### [facility] [address] [place] [address] Dr. Bebeto Alvarado Basophils/100 WBC (Bld) 1.0 % Normal 0.2-2.0 [facility] Comment on above: Performed By: #### A 1C #### [facility] [address] [place] [address] Dr. Bebeto Alvarado EO # 0.2 103/ul Normal 0.0-0.7 [facility] Comment on above: Performed By: #### A 1C #### [facility] [address] [place] [address] Dr. Bebeto Alvarado Eosinophils/100 WBC (Bld) 3.3 % Normal 0.9-7.0 [facility] Comment on above: Performed By: #### A 1C #### [facility] [address] [place] [address] Dr. Bebeto Alvarado Erythrocyte distribution width (RBC) [Ratio] 13.8 % Normal 11.0-15.0 [facility] Comment on above: Performed By: #### A 1C #### [facility] [address] [place] [address] Dr. Bebeto Alvarado Hematocrit (Bld) [Volume fraction] 38.8 % Normal 36.0-48.0 [facility] Comment on above: Performed By: #### A 1C #### [facility] [address] [address] [address] Bebeto Alvarado Hemoglobin (Bld) [Mass/Vol] 12.5 g/dL Normal 12.0-16.0 [facility] Comment on above: Performed By: #### A 1C #### [facility] [address] [address] [address] Bebeto Alvarado IG # 0.02 10e3/ul Normal 0.00-0.03 [facility] Comment on above: Performed By: #### A 1C #### [facility] [address] [place] [address] Dr. Bebeto Alvarado IG % 0.3 % Normal 0.0-0.5 [facility] Comment on above: Performed By: #### A 1C #### [facility] [address] [place] [address] Dr. Bebeto Alvarado LYMPH # 1.9 103/ul Normal 1.2-3.8 [facility] Comment on above: Performed By: #### A 1C #### [facility] [address] [place] [address] Dr. Bebeto Alvarado Lymphocytes/100 WBC (Bld) 29.6 % Normal 20.5-60.0 [facility] Comment on above: Performed By: #### A 1C #### [facility] [address] [place] [address] Dr. Bebeto Alvarado MANUAL DIFF REQ NO Normal [facility] Comment on above: Performed By: #### A 1C #### [facility] [address] [place] [address] Dr. Bebeto Alvarado MCH (RBC) [Entitic mass] 28.0 pg Normal 26.7-34.0 [facility] Comment on above: Performed By: #### A 1C #### [facility] [address] [place] [address] Dr. Bebeto Alvarado MCHC (RBC) [Mass/Vol] 32.2 g/dL Normal 29.9-35.2 [facility] Comment on above: Performed By: #### A 1C #### [facility] [address] [address] [address] Bebeto Alvarado MCV (RBC) [Entitic vol] 86.8 fL Normal 81.0-99.0 [facility] Comment on above: Performed By: #### A 1C #### [facility] [address] [address] [address] Bebeto Alvarado MONO # 0.4 103/ul Normal 0.3-0.8 [facility] Comment on above: Performed By: #### A 1C #### [facility] [address] [place] [address] Dr. Bebeto Alvarado Monocytes/100 WBC (Bld) 5.7 % Normal 1.7-12.0 [facility] Comment on above: Performed By: #### A 1C #### [facility] [address] [place] [address] Dr. Bebeto Alvarado NEUT # 3.8 103/ul Normal 1.4-6.5 [facility] Comment on above: Performed By: #### A 1C #### [facility] [address] [place] [address] Dr. Bebeto Alvarado Neutrophils/100 WBC (Bld) 60.1 % Normal 43.0-75.0 [facility] Comment on above: Performed By: #### A 1C #### [facility] [address] [place] [address] Dr. Bebeto Alvarado Platelet mean volume (Bld) [Entitic vol] 11.0 fL Normal 9.5-13.5 [facility] Comment on above: Performed By: #### A 1C #### [facility] [address] [place] [address] Dr. Bebeto Alvarado PLT 264 103/ul Normal 150-450 [facility] Comment on above: Performed By: #### A 1C #### [facility] [address] [place] [address] Dr. Bebeto Alvarado RBC 4.47 106/ul Normal 4.20-5.40 [facility] Comment on above: Performed By: #### A 1C #### [facility] [address] [address] [address] Bebeto Alvarado WBC 6.3 103/ul Normal 4.0-11.0 [facility] Comment on above: Performed By: #### A 1C #### [facility] [address] [address] [address] Bebeto Alvarado GLYCOHEMOGLOBIN A1Con 2021 ADA RECOMMENDATION SEE BELOW Normal [facility] Comment on above: Result Comment: ADA RECOMMENDED LIMIT 4.0 - 6.0 ADA THERAPEUTIC TARGET < 7.0 ACTION SUGGESTED > 7.0 Performed By: #### A 1C #### [facility] [address] [address] [address] Bebeto Alvarado Glucose [Mass/Vol] 105 mg/dL Normal [facility] Comment on above: Performed By: #### A 1C #### [facility] [address] [place] [address] Dr. Bebeto Alvarado HbA1c (Bld) [Mass fraction] 5.3 % Normal 4.5-6.2 [facility] Comment on above: Performed By: #### A 1C #### [facility] [address] [place] [address] Dr. Bebeto Alvarado IRONon 11-21-2021 Iron [Mass/Vol] 59.0 ug/dL Normal 50.0-170.0 [facility] Comment on above: Performed By: #### A 1C #### [facility] [address] [place] [address] Dr. Bebeto Alvarado LIPID PROFILEon 11-21-2021 CHOL-HDL RATIO NORM SEE BELOW Normal [facility] Comment on above: Result Comment: 3.3 - 4.4 LOW RISK 4.4 - 7.1 AVERAGE RISK 7.1 - 11.0 MODERATE RISK >11.0 HIGH RISK Performed By: #### C MP, LIPID #### [facility] [address] [place] [address] Dr. Bebeto Alvarado Cholesterol [Mass/Vol] 139 mg/dL Normal <=200 [facility] Comment on above: Performed By: #### C MP, LIPID #### [facility] [address] [place] [address] Dr. Bebeto Alvarado Cholesterol in HDL [Mass/Vol] 35 mg/dL Critically low 40-60 [facility] Comment on above: Performed By: #### C MP, LIPID #### [facility] [address] [address] [address] Bebeto Alvarado Cholesterol in LDL [Mass/Vol] 69.6 mg/dL Normal [facility] Comment on above: Performed By: #### C MP, LIPID #### [facility] [address] [address] [address] Bebeto Alvarado Cholesterol.total/Chol esterol in HDL [Mass ratio] 4.0 {ratio} Normal [facility] Comment on above: Performed By: #### C MP, LIPID #### [facility] [address] [place] [address] Dr. Bebeto Alvarado HDL NORMAL > or = 60 mg/dl - LO W CARDIOVASCULAR RISK <40 mg/dl - HIGH CARDIOVASCULAR RISK Normal [facility] Comment on above: Performed By: #### C MP, LIPID #### [facility] [address] [place] [address] Dr. Bebeto Alvarado LDL CALC NORMAL SEE BELOW Normal [facility] Comment on above: Result Comment: <100 mg/dl OPTIMAL 100 - 129 mg/dl NEAR OR ABOVE OPTIMAL 130 - 159 mg/dl BORDERLINE HIGH 160 - 189 mg/dl HIGH >190 mg/dl VERY HIGH Performed By: #### C MP, LIPID #### [facility] [address] [address] [address] Bebeto Alvarado Triglyceride [Mass/Vol] 172 mg/dL Critically high <=150 [facility] Comment on above: Performed By: #### C MP, LIPID #### [facility] [address] [address] [address] Bebeto Alvarado VLDL CALC 34.4 mg/dL Normal [facility] Comment on above: Performed By: #### C MP, LIPID #### [facility] [address] [address] [address] Bebeto Alvarado PROF 14(COMP METB)on 022 Albumin [Mass/Vol] 3.8 g/dL Normal 3.4-5.0 [facility] Comment on above: Performed By: #### C MP, LIPID #### [facility] [address] [address] [address] Bebeto Alvarado Albumin/Globulin [Mass ratio] 1.1 {ratio} Normal [facility] Comment on above: Performed By: #### C MP, LIPID #### [facility] [address] [address] [address] Bebeto Alvarado ALP [Catalytic activity/Vol] 96 U/L Normal 46-116 [facility] Comment on above: Performed By: #### C MP, LIPID #### [facility] [address] [address] [address] Bebeto Alvarado ALT [Catalytic activity/Vol] 25 U/L Normal 14-59 [facility] Comment on above: Performed By: #### C MP, LIPID #### [facility] [address] [address] [address] Bebeto Alvarado Anion gap [Moles/Vol] 11.8 mmol/L Normal [facility] Comment on above: Performed By: #### C MP, LIPID #### [facility] [address] [address] [address] Bebeto Alvarado AST [Catalytic activity/Vol] 20 U/L Normal 15-37 [facility] Comment on above: Performed By: #### C MP, LIPID #### [facility] [address] [address] [address] Bebeto Alvarado Bilirubin [Mass/Vol] 0.4 mg/dL Normal 0.2-1.0 [facility] Comment on above: Performed By: #### C MP, LIPID #### [facility] [address] [address] [address] Bebeto Alvarado Calcium [Mass/Vol] 8.8 mg/dL Normal 8.5-10.1 [facility] Comment on above: Performed By: #### C MP, LIPID #### [facility] [address] [address] [address] Bebeto Alvarado Chloride [Moles/Vol] 106 mmol/L Normal 98-107 [facility] Comment on above: Performed By: #### C MP, LIPID #### [facility] [address] [address] [address] Bebeto Alvarado CO2 [Moles/Vol] 27.0 mmol/L Normal 21.0-32.0 [facility] Comment on above: Performed By: #### C MP, LIPID #### [facility] [address] [address] [address] Bebeto Alvarado Creatinine [Mass/Vol] 0.97 mg/dL Normal 0.55-1.02 [facility] Comment on above: Performed By: #### C MP, LIPID #### [facility] [address] [address] [address] Bebeto Alvarado EGFR-AF DJIBOUTIAN >60 Normal >=60 [facility] Comment on above: Performed By: #### C MP, LIPID #### [facility] [address] [address] [address] Bebeto Alvarado EGFR-NON AF DJIBOUTIAN 59 mL/min/1.73m2 Critically low >=60 [facility] Comment on above: Performed By: #### C MP, LIPID #### [facility] [address] [address] [address] Bebeto Alvarado Globulin (S) [Mass/Vol] 3.4 g/dL Normal [facility] Comment on above: Performed By: #### C MP, LIPID #### [facility] [address] [address] [address] Bebeto Alvarado Glucose [Mass/Vol] 103 mg/dL Normal 74-106 [facility] Comment on above: Performed By: #### C MP, LIPID #### [facility] [address] [address] [address] Bebeto Alvarado Potassium [Moles/Vol] 3.8 mmol/L Normal 3.5-5.1 [facility] Comment on above: Performed By: #### C MP, LIPID #### [facility] [address] [address] [address] Bebeto Alvarado Protein [Mass/Vol] 7.2 g/dL Normal 6.4-8.2 [facility] Comment on above: Performed By: #### C MP, LIPID #### [facility] [address] [place] [address] Dr. Bebeto Alvarado Sodium [Moles/Vol] 141 mmol/L Normal 136-145 [facility] Comment on above: Performed By: #### C MP, LIPID #### [facility] [address] [place] [address] Dr. Bebeto Alvarado Urea nitrogen [Mass/Vol] 11.0 mg/dL Normal 7.0-18.0 [facility] Comment on above: Performed By: #### C MP, LIPID #### [facility] [address] [place] [address] Dr. Bebeto Alvarado Urea nitrogen/Creatinine [Mass ratio] 11.3 mg/mg Normal [facility] Comment on above: Performed By: #### C MP, LIPID #### [facility] [address] [place] [address] Dr. Bebeto Alvarado URIC ACID SERUMon 11-21-2021 Urate [Mass/Vol] 7.3 mg/dL Critically high 2.6-6.0 [facility] Comment on above: Performed By: #### A 1C #### [facility] [address] [place] [address] Dr. Bebeto Alvarado VITAMIN B12on 11-21-2021 Cobalamin (Vitamin B12) [Mass/Vol] 2123.0 pg/mL Critically high 193.0-986.0 [facility] Comment on above: Performed By: #### A 1C #### [facility] [address] [place] [address] Dr. Bebeto Alvarado Physician Referralon 022 Physician Referral [phone] [id number] Normal [facility] KNEE RIGHT 1 OR 2 [facility] 11-0 KNEE RIGHT 1 OR [address] [facility] Department of Radiology [address] [place] [id number] ======== Patient Name: MICHELLE BE : [...] Electronically signed by:Debra Del Cid. Transcribed by: [email or web address], User Resident: Electronically Signed by: DEBRA NEHEMIAS @ 02/08/2019 11:16 AM Normal [facility] Comment on above: Order Comment: , Rossie ws (X-RAY, KNEE): Radiologic Protocol , Weight Bearing?: N , With or Without Brace/Cast/Collar: With , Views (X-RAY, KNEE): Radiologic Protocol , Weight Bearing?: N , With or Without Brace/Cast/Collar: With , , , Ordering Provider - AHSAN BINHGAM PA-C , KNEE RIGHT 1 OR 2 Son KNEE RIGHT 1 OR [address] [facility] Department of Radiology [address] [place] [id number] ======== Patient Name: MICHELLE BE : 1960 Sex: F Age: Race: White Pt. Location: Patient Status: Ordered Date: 12/07/2018 10:20:00 AM Completed Date: 12/07/2018 10:20 AM Requesting Provider: AHSAN BINGHAM Attending Provider: Report Copy To: Signs & Symptoms: S82.001A Unsp fracture of right patella, init for clos fx I10 History: [place] Comments: , , , Ordering Provider - AHSAN BINGHAM PA-C , Exam: KNEE RIGHT 1 OR 2 [facility] ======== KNEE RIGHT 1 OR [...] complications. Electronically signed by:Tomasz Stoll. Transcribed by: [email or web address], User Resident: Electronically Signed by: TOMASZ STOLL @ 12/07/2018 11:14 AM Normal [facility] [facility] Comment on above: Order Comment: , Vie ws (X-RAY, KNEE): Radiologic Protocol , Weight Bearing?: N , With or Without Brace/Cast/Collar: With , Views (X-RAY, KNEE): Radiologic Protocol , Weight Bearing?: N , With or Without Brace/Cast/Collar: With , , , Ordering Provider - AHSAN BINGHAM PA-C , KNEE RIGHT 1 OR 2 [facility] KNEE RIGHT 1 OR 2 [facility] Department of Radiology [address] [place] [id number] ======== Patient Name: MICHELLE BE : [...] osteoarthritis Electronically signed by:Anup Ellison. Transcribed by: [email or web address], User Resident: Electronically Signed by: ANUP ELLISON @ 10/06/2018 02:48 PM Normal [facility] Comment on above: Order Comment: , Mabel ws (X-RAY, KNEE): Radiologic Protocol , Weight Bearing?: N , With or Without Brace/Cast/Collar: With , Views (X-RAY, KNEE): Radiologic Protocol , Weight Bearing?: N , With or Without Brace/Cast/Collar: With , , , Ordering Provider - AHSAN BINGHAM PA-C , KNEE RIGHT 1 OR 2 [facility] 08-05 KNEE RIGHT 1 OR [address] [facility] Department of Radiology [address] [place] [phone] ======== Patient Name: MICHELLE BE : [...] , Exam: KNEE RIGHT 1 OR 2 [facility] ======== KNEE RIGHT 1 OR [...] effusion Electronically signed by:Anup Ellison. Transcribed by: [email or web address], User Resident: Electronically Signed by: ANUP ELLISON @ 08/26/2018 04:56 PM Normal [facility] Comment on above: Order Comment: , Mabel ws (X-RAY, KNEE): Radiologic Protocol , Weight Bearing?: N , With or Without Brace/Cast/Collar: With , Views (X-RAY, KNEE): Radiologic Protocol , Weight Bearing?: N , With or Without Brace/Cast/Collar: With , , , Ordering Provider - AHSAN BINGHAM PA-C , KNEE RIGHT 1 OR 2 [facility] 07-06 KNEE RIGHT 1 OR [address] [facility] Department of Radiology [address] [place] [phone] ======== Patient Name: MICHELLE BE : 1960 Sex: F Age: Race: White Pt. Location: Patient Status: Ordered Date: 07/29/2018 2:10:00 PM Completed Date: 07/29/2018 02:12 PM Requesting Provider: AHSAN BINGHAM Attending Provider: Report Copy To: Signs & Symptoms: S82.001A Unsp fracture of right patella, init for clos fx I10 History: [place] Comments: , , , Ordering Provider - [...] compartment Electronically signed by:Anup Ellison. Transcribed by: [email or web address], User Resident: Electronically Signed by: ANUP ELLISON @ 07/29/2018 03:41 PM Normal [facility] Comment on above: Order Comment: , Mabel ws (X-RAY, KNEE): Radiologic Protocol , Weight Bearing?: N , With or Without Brace/Cast/Collar: With , Views (X-RAY, KNEE): Radiologic Protocol , Weight Bearing?: N , With or Without Brace/Cast/Collar: With , , , Ordering Provider - ASHAN BINGHAM PA-C , KNEE RIGHT 3 VWSon 9 KNEE RIGHT 3 VWS [facility] Department of Radiology [address] [place] [phone] ======== Patient Name: MICHELLE BE : 1960 Sex: F Age: Race: White Pt. Location: 84 Patient Status: Ordered Date: 07/15/2018 8:45:00 AM Completed Date: 07/15/2018 08:47 AM Requesting Provider: AHSAN BINGHAM Attending Provider: Report Copy To: Signs & Symptoms: S82.001A Unsp fracture of right patella, init for clos fx I10 History: [place] Comments: , , , Ordering Provider - AHSAN BINGHAM PA-C , Exam: KNEE RIGHT 3 [facility] ======== KNEE RIGHT 3 VWS [...] knee Electronically signed by:Anup Ellison. Transcribed by: [email or web address], User Resident: Electronically Signed by: ANUP ELLISON @ 07/15/2018 03:31 PM Normal [facility] Comment on above: Order Comment: , Vie ws (X-RAY, KNEE): Radiologic Protocol , Weight Bearing?: N , With or Without Brace/Cast/Collar: With , Views (X-RAY, KNEE): Radiologic Protocol , Weight Bearing?: N , With or Without Brace/Cast/Collar: With , , , Ordering Provider - AHSAN BINGHAM PA-C , Operative Reporton 9 Operative Report MR#: [id number] [facility] Pt. Name: Michelle Be Room #: [...] immediately available to assist. Date Dict: 07/02/2018/04:59 Ashley/Paolo Duarte MD Date Trans: 07/03/2018 04:28 Monse/terry [id number] Normal [facility] *ANAEROBIC CULTUREon 019 *ANAEROBIC CULTURE Clinical Report: (D) Specimen/Source: SWAB/RT KNEE Collected: 07/02/2018 13:53 Status: Final Last Updated: 07/07/2018 08:02 CULT RES (Final) No Anaerobes Isolated [address] [facility] Comment on above: Performed By: #### 3 0312 #### [address] *WOUND CULTUREon 07-02-2018 *WOUND CULTURE Clinical Report: (D) Specimen/Source: WOUND/INTRAOP SPEC Collected: 07/02/2018 13:53 Status: Final Last Updated: 07/07/2018 10:13 (1) #1 RT KNEE GRAM (Final) Rare Polys No Bacteria Seen CULT RES (Final) No Growth Day [address] [facility] Comment on above: Order Comment: #1 RT KNEE Performed By: #### 3 0343 #### [address] KNEE RIGHT 1 OR 2 [facility] 06-05 KNEE RIGHT 1 OR 2 [facility] Department of Radiology [address] [place] [phone] ======== Patient Name: MICHELLE BE : [...] Electronically signed by:Debra Del Cid. Transcribed by: [email or web address], User Resident: Electronically Signed by: DEBRA DEL CID @ 07/02/2018 02:03 PM Normal [facility] Comment on above: Order Comment: ORIF VS PERCUTANEOUS FIXATION RIGHT PATELLA POC GLUCOSE LABon 07-02-2018 Glucose [Mass/Vol] 108 mg/dL High 70-100 [facility] Comment on above: Performed By: #### 8 5499 #### [facility] [address] APTTon 06-30-2018 aPTT Coag (Bld) [Time] 30.6 s Normal 25.0-35.0 [facility] Comment on above: Result Comment: ALL [...] FOR THIS PURPOSE. Performed By: #### 5 9474, 90086 #### [facility] [address] [place] [address], [facility] BASIC METABOLIC PANELon - Calcium [Mass/Vol] 9.7 mg/dL Normal 8.6-10.3 [facility] Comment on above: Performed By: #### 0 0071 #### [facility] [address] [place] [address], [place] Chloride [Moles/Vol] 102 mmol/L Normal 98-107 [facility] Comment on above: Performed By: #### 0 0071 #### [facility] [address] [place] [address], [place] CO2 [Moles/Vol] 28 mmol/L Normal 21-31 [facility] Comment on above: Performed By: #### 0 0071 #### [facility] [address] [place] [address], [place] Creatinine [Mass/Vol] 1.20 mg/dL Normal 0.60-1.20 [facility] Comment on above: Performed By: #### 0 0071 #### [facility] [address] [place] [address], [place] GFR/1.73 sq M predicted among blacks MDRD (S/P/Bld) [Vol rate/Area] 56 ml/min/1.73sq m Abnormal >60 [facility] Comment on above: Performed By: #### 0 0071 #### [facility] [address] [place] [address], [place] GFR/1.73 sq M predicted among non-blacks MDRD (S/P/Bld) [Vol rate/Area] 47 ml/min/1.73sq m Abnormal >60 [facility] Comment on above: Performed By: #### 0 0071 #### [facility] [address] [place] [address], [place] Glucose [Mass/Vol] 97 mg/dL Normal 70-100 [facility] Comment on above: Performed By: #### 0 0071 #### [facility] [address] Potassium [Moles/Vol] 4.1 mmol/L Normal 3.5-5.1 [facility] Comment on above: Performed By: #### 0 0071 #### [facility] [address] Sodium [Moles/Vol] 137 mmol/L Normal 136-145 [facility] Comment on above: Performed By: #### 0 0071 #### [facility] [address] Urea nitrogen [Mass/Vol] 19 mg/dL Normal 7-25 [facility] Comment on above: Performed By: #### 0 0071 #### [facility] [address] CBC W/DIFFon 06-30-2018 ABS BASOPHILS 0.1 10*3/uL Normal 0.0-0.2 [facility] Comment on above: Performed By: #### 5 102 #### [facility] [address] ABS IMM GRANS 0.0 10*3/uL Normal 0.0-0.2 [facility] Comment on above: Performed By: #### 5 0103 #### [facility] [address] ABS NEUTROPHILS 6.4 10*3/uL Normal 1.6-7.6 [facility] Comment on above: Performed By: #### 5 3 #### [facility] [address] Basophils/100 WBC (Bld) 0.7 % Normal 0.0-1.0 [facility] Comment on above: Performed By: #### 5 3 #### [facility] [address] Eosinophils (Bld) [#/Vol] 0.2 10*3/uL Normal 0.0-0.5 [facility] Comment on above: Performed By: #### 0103 #### [facility] [address] [facility]. [address] Eosinophils/100 WBC (Bld) 1.5 % Normal 0.0-6.0 [facility] Comment on above: Performed By: #### 3 #### [facility] [address] Erythrocyte distribution width (RBC) [Ratio] 14.4 % Normal 11.5-15.0 [facility] Comment on above: Performed By: #### 3 #### [facility] [address] Hematocrit (Bld) [Volume fraction] 40.6 % Normal 36.0-45.0 [facility] Comment on above: Performed By: #### 3 #### [facility] [address] Hemoglobin (Bld) [Mass/Vol] 13.3 g/dL Normal 12.0-15.0 [facility] Comment on above: Performed By: #### 3 #### [facility] [address] IMMATURE GRANS 0.4 % Normal 0.0-1.0 [facility] Comment on above: Performed By: #### 102 #### [facility] [address] [place] [address], [facility] Lymphocytes (Bld) [#/Vol] 2.6 10*3/uL Normal 1.2-4.0 [facility] Comment on above: Performed By: #### 3 #### [facility] [address] [place] [address], [facility] Lymphocytes/100 WBC (Bld) 26.5 % Normal 20.0-45.0 [facility] Comment on above: Performed By: #### 5 3 #### [facility] [address] [place] [address], [facility] MCH (RBC) [Entitic mass] 27.4 pg Normal 27.0-33.0 [facility] Comment on above: Performed By: #### 3 #### [facility] [address] MCHC (RBC) [Mass/Vol] 32.8 g/dL Normal 32.0-35.0 [facility] Comment on above: Performed By: #### 102 #### [facility] [address] [place] [address], [facility] MCV (RBC) [Entitic vol] 83.5 fL Normal 82.0-98.0 [facility] Comment on above: Performed By: #### 5 102 #### [facility] [address] [place] [address], [facility] Monocytes (Bld) [#/Vol] 0.5 10*3/uL Normal 0.1-1.0 [facility] Comment on above: Performed By: #### 5 3 #### [facility] [address] MONOS 5.0 % Normal 5.0-12.0 [facility] Comment on above: Performed By: #### 5 3 #### [facility] [address] [place] [address], [facility] Neutrophils/100 WBC (Bld) 65.9 % Normal 40.0-72.0 [facility] Comment on above: Performed By: #### 5 3 #### [facility] [address] Nucleated RBC/100 WBC (Bld) [Ratio] 0 % Normal 0-0 [facility] Comment on above: Performed By: #### 5 0103 #### [facility] [address] [place] [address], [facility] PLAT CNT 290 10*3/uL Normal 150-400 [facility] Comment on above: Performed By: #### 5 0103 #### [facility] [address] [place] [address], [facility] RBC (Bld) [#/Vol] 4.86 10*6/uL Normal 3.80-5.00 [facility] Comment on above: Performed By: #### 5 0103 #### [address] [address], [facility] WBC (Bld) [#/Vol] 9.68 10*3/uL Normal 4.00-10.60 [facility] Comment on above: Performed By: #### 5 0103 #### [facility] [address] [place] [address], [facility] KNEE RIGHT 1 OR 2 VWSon 06-05 KNEE RIGHT 1 OR [address] [facility] Department of Radiology [address] [place] [phone] ======== Patient Name: MICHELLE BE : 1960 Sex: F Age: Race: White Pt. 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 Transcribed by: [email or web address], User Resident: Electronically Signed by: DEBRA DEL CID @ 06/30/2018 11:52 AM [facility] Comment on above: Order Comment: , Vie ws (X-RAY, KNEE): Radiologic Protocol , Weight Bearing?: N , With or Without Brace/Cast/Collar: With , Views (X-RAY, KNEE): Radiologic Protocol , Weight Bearing?: N , With or Without Brace/Cast/Collar: With , , , Ordering Provider - AHSAN BINGHAM PA-C , PROTHROMBIN TIMEon 9 INR Coag (PPP) [Relative time] 0.98 {INR} Normal 0.91-1.16 [facility] Comment on above: Result Comment: ACCC [...] CHEST 1995;108:231S-246S. Performed By: #### 5 6101, [id number] #### [facility] [address] [place] [address], [facility] PT Coag (PPP) [Time] 13.0 s Normal 12.3-14.8 [facility] Comment on above: Result Comment: ALL RESULTS MUST BE INTERPRETED WITH RESPECT TO BLOOD DRAWING ARTIFACT OR DILUTION ERROR OF ANTICOAGULANT AT THE TIME OF SAMPLING. Performed By: #### 5 6101, [id number] #### [facility] [address] [place] [address], [facility] KNEE RIGHT 3 VWSon 9 KNEE RIGHT 3 [facility] Department of Radiology [address] [place] [phone] ======== Patient Name: MICHELLE BE : 1960 Sex: F Age: Race: White Pt. Location: Patient Status: O Ordered Date: 06/15/2018 1:35:00 PM Completed Date: 06/15/2018 01:34 PM Requesting Provider: AMPARO ZHANG Attending Provider: AMPARO ZHANG Report Copy To: ADELAIDA CARRION Signs & Symptoms: M17.11 Unilateral primary osteoarthritis, right knee I10 History: [place] Comments: , Weight Bearing?: Y , Weight Bearing?: Y , , , Ordering Provider - AMPARO ZHANG PA-C , Exam: KNEE RIGHT 3 [facility] ======== KNEE RIGHT 3 S 06/15/2018 [...] effusion Electronically signed by:Anup Ellison. Transcribed by: [email or web address], User Resident: Electronically Signed by: ANUP ELLISON @ 06/15/2018 03:50 PM Normal [facility] Comment on above: Order Comment: , Isaiah ght Bearing?: Y , Weight Bearing?: Y , , , Ordering Mariela - AMPARO ZHANG PA-C , Vital Signs Date Time Vital Sign Value Performing Clinician Facility 02-16-2024 11:18-0500 Body height 162.6 cm Adelaida Sheyla [employer]CH[employer]ING OFFICER Work Phone: [facility] 02-16-2024 11:18-0500 Body mass index (BMI) [Ratio] 50.77 kg/m2 Adelaida Sheyla PURCH[employer]ING OFFICER Work Phone: [facility] 02-16-2024 11:18-0500 Body temperature 98.49 [degF] Adelaida Sheyla PURCHASING OFFICER Work Phone: [facility] 02-16-2024 11:18-0500 Body weight 134.17 kg Adelaida Sheyla PURCHASING OFFICER Work Phone: [facility] 02-16-2024 11:18-0500 Diastolic blood pressure 82 mm[Hg] Adelaida Sheyla PURCHASING OFFICER Work Phone: [facility] 02-16-2024 11:18-0500 Heart rate 69 /min Adelaida Sheyla PURCHASING OFFICER Work Phone: [facility] 02-16-2024 11:18-0500 Respiratory rate 20 /min Adelaida Sheyla PURCHASING OFFICER Work Phone: [facility] 02-16-2024 11:18-0500 SaO2% (BldA) [Mass fraction] 98 % Adelaida Kelsiez PURCHASING OFFICER Work Phone: [facility] 02-16-2024 11:18-0500 Systolic blood pressure 122 mm[Hg] Adelaida Merryholz PURCHASING OFFICER Work Phone: [facility] 01-28-2024 13:46-0400 Body height 162.6 cm Adelaida Yinghholz PURCHASING OFFICER Work Phone: [facility] 01-28-2024 13:46-0400 Body mass index (BMI) [Ratio] 48.99 kg/m2 Adelaida Yinghholz PURCHASING OFFICER Work Phone: [facility] 01-28-2024 13:46-0400 Body temperature 98.71 [degF] Adelaida Yinghholz PURCHASING OFFICER Work Phone: [facility] 01-28-2024 13:46-0400 Body weight 129.46 kg Adelaida Merryholz PURCHASING OFFICER Work Phone: [facility] 01-28-2024 13:46-0400 Diastolic blood pressure 78 mm[Hg] Adelaida Yinghholz PURCHASING OFFICER Work Phone: [facility] 01-28-2024 13:46-0400 Heart rate 81 /min Adelaida Yinghholz PURCHASING OFFICER Work Phone: [facility] 01-28-2024 13:46-0400 Respiratory rate 18 /min Adelaida Merryholz PURCHASING OFFICER Work Phone: [facility] 01-28-2024 13:46-0400 SaO2% (BldA) [Mass fraction] 99 % Adelaida Yinghholz PURCHASING OFFICER Work Phone: [facility] 01-28-2024 13:46-0400 Systolic blood pressure 110 mm[Hg] Adelaida Aichholz PURCHASING OFFICER Work Phone: [facility] 05-18-2023 16:30-0500 Body height 162.6 cm Adelaida Yinghholz PURCHASING OFFICER Work Phone: [facility] 05-18-2023 16:30-0500 Body mass index (BMI) [Ratio] 47.89 kg/m2 Adelaidamonse Hebostonz PURCHASING OFFICER Work Phone: [facility] 05-18-2023 16:30-0500 Body temperature 97.3 [degF] Adelaida Merryholz PURCHASING OFFICER Work Phone: [facility] 05-18-2023 16:30-0500 Body weight 126.55 kg Adelaida Yinghholz PURCHASING OFFICER Work Phone: [facility] 05-18-2023 16:30-0500 Diastolic blood pressure 80 mm[Hg] Adelaida Aichholz PURCHASING OFFICER Work Phone: [facility] 05-18-2023 16:30-0500 Heart rate 76 /min Adelaida Merryholz PURCHASING OFFICER Work Phone: [facility] 05-18-2023 16:30-0500 Respiratory rate 19 /min Adelaida Yinghholz PURCHASING OFFICER Work Phone: [facility] 05-18-2023 16:30-0500 SaO2% (BldA) [Mass fraction] 97 % Adelaida Aichholz PURCHASING OFFICER Work Phone: [facility] 05-18-2023 16:30-0500 Systolic blood pressure 134 mm[Hg] Adelaida Yinghholz PURCHASING OFFICER Work Phone: [facility] 03-23-2023 12:10-0500 Diastolic blood pressure 98 mm[Hg] Adelaida Aichholz Work Phone: [facility] 03-23-2023 12:10-0500 Heart rate 76 /min Adelaida Aichholz Work Phone: [facility] 03-23-2023 12:10-0500 Respiratory rate 18 /min Adelaida Aichholz Work Phone: [facility] 03-23-2023 12:10-0500 SaO2% (BldA) [Mass fraction] 99 % Adelaida Yinghholz Work Phone: [facility] 03-23-2023 12:10-0500 Systolic blood pressure 162 mm[Hg] Adelaida Carrion Work Phone: [facility] 03-23-2023 10:53-0500 Body height 162.56 cm Adelaida Carrion Work Phone: [facility] 03-23-2023 10:53-0500 Body weight 125.64 kg Adelaida Carrion Work Phone: [facility] 12-19-2022 14:55-0400 Body height 162.56 cm Rosemary Marita Other [employer] Other 12-19-2022 14:55-0400 Body mass index (BMI) [Ratio] 47.85 kg/m2 Rosemary Marita Other [employer] Other 12-19-2022 14:55-0400 Body temperature 97.8 [degF] Rosemary Vernonmond Other [employer] Other 12-19-2022 14:55-0400 Body weight 126.46 kg Rosemary Vernonmond Other [employer] Other 12-19-2022 14:55-0400 Respiratory rate 20 /min Rosemary Vernonmond Other [employer] Other 12-19-2022 14:55-0400 SaO2% (BldA) [Mass fraction] 95 % Rosemary Marita Other [employer] Other 11-20-2022 13:12-0400 Body temperature 97.7 [degF] Adelaida Carrion Work Phone: [facility] 11-20-2022 13:12-0400 SaO2% (BldA) [Mass fraction] 96 % Adelaida Aichholz Work Phone: [facility] 11-20-2022 07:44-0400 Diastolic blood pressure 90 mm[Hg] Adeladia Aichholz Work Phone: [facility] 11-20-2022 07:44-0400 Heart rate 103 /min Adelaida Aichholz Work Phone: [facility] 11-20-2022 07:44-0400 Systolic blood pressure 152 mm[Hg] Adelaida Aichholz Work Phone: [facility] 11-19-2022 20:00-0400 Respiratory rate 18 /min Adelaida Aichholz Work Phone: [facility] 11-18-2022 15:18-0400 Body height 162.56 cm Adelaida Aichholz Work Phone: [facility] 11-17-2022 09:00-0400 Body weight 122.92 kg Adelaida Aichholz Work Phone: [facility] Encounters Encounter Date Encounter Type Care Provider Facility Start: 02-28-2024 End: 02-29-2024 Refill Adelaida Aichholz PURCHASING OFFICER Work Phone: [facility] Comment on above: Allergic rhinitis, u nspecified Start: 02-24-2024 End: 02-24-2024 Refill Adelaida Aichholz PURCHASING OFFICER Work Phone: [facility] Comment on above: Essential (primary) hypertension (CMS/HCC); Allergic rhinitis, unspecified Start: 02-16-2024 End: 02-16-2024 Bamboo flowsheet Adelaida Aichholz PURCHASING OFFICER Work Phone: [facility] Start: 02-16-2024 End: 02-23-2024 Clinisync Result Encounter Adelaida Aichholz PURCHASING OFFICER Work Phone: [facility] Unsolicited Start: 02-16-2024 End: 02-23-2024 Clinisync Result Encounter Adelaida Sousabob PURCHASING OFFICER Work Phone: [facility] Unsolicited Start: 02-16-2024 End: 02-16-2024 Patient encounter procedure Adelaida Sousabob PURCHASING OFFICER Work Phone: [facility] Start: 02-16-2024 End: 02-16-2024 Periodic preventive med est patient 40-64yrs Adelaida Yingmarquesbob PURCHASING OFFICER Work Phone: [facility] Comment on above: Well woman exam with routine gynecological exam (Primary Dx); Morbid obesity (CMS/HCC) Start: 02-16-2024 End: 02-16-2024 ambulatory ADELAIDA SHEYLA Not Available Start: 02-04-2024 End: 02-04-2024 Refill Sonam Brown PURCHASING OFFICER Work Phone: [facility] Comment on above: Restless leg Start: 01-28-2024 End: 01-28-2024 Bamboo flowsheet Adelaida Sheyla PURCHASING OFFICER Work Phone: [facility] Start: 01-28-2024 End: 01-28-2024 Bamboo flowsheet Adelaida Sousabob PURCHASING OFFICER Work Phone: [facility] Start: 01-28-2024 End: 01-28-2024 Office outpatient visit 15 minutes Adelaida Sheyla PURCHASING OFFICER Work Phone: [facility] Comment on above: Acute cystitis witho ut hematuria (Primary Dx); Tobacco dependence; Needs flu shot; Morbid obesity (CMS/HCC) Start: 01-28-2024 End: 01-28-2024 ambulatory ADELAIDA MERRYHOLZ Not Available Start: 01-25-2024 End: 01-25-2024 ambulatory Syeda Mancuso MD Facility:[facility] Start: 01-21-2024 End: 01-25-2024 Clinisync Result Encounter Generic External Data Provider [facility] Unsolicited Start: 01-21-2024 End: 01-25-2024 Clinisync Result Encounter Generic External Data Provider [facility] Unsolicited Start: 01-06-2024 ambulatory Adelaida Mcnair Sheyla Facilit y:[facility] Start: 01-05-2024 End: 01-05-2024 Clinisync Result Encounter Adelaida Sousaholz PURCHASING OFFICER Work Phone: [facility] Unsolicited Start: 01-05-2024 End: 01-05-2024 Clinisync Result Encounter Adelaida Sousaholz PURCHASING OFFICER Work Phone: [facility] Unsolicited Start: [...] 06-29-2023 End: 06-29-2023 ambulatory Syeda Mancuso MD Facility:[facility] Start: 05-22-2023 End: 05-22-2023 ambulatory ASHLEIGH HINES Not Available Start: 05-21-2023 Refill Adelaida Aichholz PURCHASING OFFICER Work Phone: [facility] Comment on above: Acute cystitis with hematuria (Primary Dx) Start: 05-18-2023 End: 05-18-2023 Office outpatient visit 25 minutes Adelaida Carrion PURCHASING OFFICER Work Phone: [facility] Comment on above: Encounter for annual wellness visit (AWV) in Medicare patient (Primary Dx); OSMANY (obstructive sleep apnea); Chronic pain disorder; Gastroesophageal reflux disease, unspecified whether esophagitis present; Overactive bladder; Lower extremity edema; Pre-diabetes; Morbid obesity ([facility]); Yeast infection of the skin; Tobacco dependence; Mood disorder ([facility]); Primary hypertension ([facility]); Left hip pain; Open wound of anterior abdominal wall, initial encounter Start: 05-18-2023 End: 05-18-2023 ambulatory ADELAIDA CARRION Not Available Start: 05-18-2023 Bamboo flowsheet Adelaida Carrion PURCHASING OFFICER Work Phone: [facility] [facility] Start: 05-18-2023 Bamboo flowsheet Adelaida Carrion PURCHASING OFFICER Work Phone: [facility] Start: 05-18-2023 End: 05-18-2023 Patient encounter procedure Adelaida Carrion PURCHASING OFFICER Work Phone: [facility] Start: 03-25-2023 End: 03-25-2023 ambulatory ADELAIDA CARRION Not Available Start: 03-23-2023 End: 03-23-2023 Admission to same day surgery center Adelaida Carrion Work Phone: [facility] Work Phone: Start: 03-23-2023 End: 03-23-2023 ambulatory Adelaida Carrion Work Phone: [facility] Work Phone: Start: 03-11-2023 End: 03-11-2023 ambulatory KALLI INTERIANO Not Available Start: 02-20-2023 End: 02-20-2023 ambulatory ASHLEIGH HINES Not Available Start: 02-12-2023 End: 02-12-2023 ambulatory Jace Burnett [facility] [employer] Other Start: 02-12-2023 Telephone encounter Jace CORADO [employer] Start: 12-19-2022 End: 12-19-2022 ambulatory Rosemary Kirkland Other [facility] [employer] Other Start: 12-19-2022 Office outpatient ne w 10 minutes Rosemary Kirkland [facility] [place] Start: 11-17-2022 End: 11-20-2022 Evaluation and management of inpatient Adelaida Aichholz Work Phone: [facility] Work Phone: Start: 09-04-2022 ambulatory ARIAN Banegas Facili ty:H1 Start: 08-26-2022 ambulatory NARENDRANATH LAKSHMIPATHY . Facility:H1 Start: 08-08-2022 End: 08-09-2022 ambulatory RUBBLE PLACER ADELAIDA AICHHOLZ Facility:H1 Start: 07-25-2022 End: 07-26-2022 ambulatory RUBBLE PLACER ADELAIDA AICHHOLZ Facility:H1 Start: 07-15-2022 End: 07-15-2022 ambulatory NARENDRANATH LAKSHMIPATHY . Facility:H1 Start: 07-11-2022 ambulatory NARENDRANATH LAKSHMIPATHY . Facility:H1 Start: 06-26-2022 End: 06-27-[address] FINA ZIMMER . Facility:H1 Start: 06-11-2022 ambulatory RUBBLE PLACER ADELAIDA AICHHOLZ Facil ity:H1 Start: 05-21-2022 End: 06-11-2022 ambulatory RUBBLE PLACER ADELAIDA AICHHOLZ Facility:H1 Start: 05-08-2022 End: 05-09-2022 ambulatory RUBBLE PLACER ADELAIDA AICHHOLZ Facility:H1 Start: 04-28-2022 End: 04-28-2022 ambulatory RUBBLE PLACER ADELAIDA AICHHOLZ Facility:H1 Start: 04-03-2022 End: 04-04-[address] FINA ZIMMER . Facility:H1 Start: 03-19-2022 End: 12-15-2022 ambulatory RUBBLE PLACER ADELAIDA AICHHOLZ Facility:H1 Start: 02-20-2022 End: 02-20-2022 ambulatory GILMER NEVES Facility:H1 Start: 01-10-2022 End: 02-12-2022 ambulatory BRIDGETTE Ca [facility] Facility:H1 Start: 01-02-2022 End: 01-03-[address] FINA ZIMMER . Facility:H1 Start: 01-01-2022 End: 01-02-2022 ambulatory BRIDGETTE Ca [facility] Facility:H1 Start: 12-16-2021 End: 12-16-2021 ambulatory LIVIER WITT YINGMarquesGERONIMONena Facility:H1 Start: 11-21-2021 End: 11-22-[address] DOCTOR BERGERON Facility:H1 Start: 10-03-2021 End: 10-04-[address] FINA ZIMMER . Facility:H1 Start: 09-19-[address] FINA ZIMMER . Faci lity:H1 Start: 09-12-2021 End: 09-12-2021 ambulatory LIVIER WITT YINGMarquesGERONIMONena Facility:H1 Start: 08-20-2021 End: 08-20-[address] FINA ZIMMER . Facility:H1 Start: 07-02-2018 End: 07-03-2018 Patient encounter procedure SUKI ESCALANTE Facility:[facility] Procedures Date Procedure Procedure Detail Performing Clinician Start: 02-16-2024 IGP,APTIMA HPV,AGE GDLN Adelaida Carrion PURCHASING OFFICER Work Phone: Start: 01-28-2024 Urnls dip stick/tabl et rgnt non-auto w/o micrscp Adelaida Carrion PURCHASING OFFICER Work Phone: Start: 01-21-2024 MHPT CULT,URINE Generic External Data Provider Start: 01-05-2024 ALL BASIC METABOLIC PANEL Adelaida Carrion PURCHASING OFFICER Work Phone: Start: 09-18-2023 Mammography Adelaida ramos PURCHASING OFFICER Work Phone: Start: 03-23-2023 Screening colonoscopy L oneal Carrion Work Phone: Start: 03-23-2023 Colonoscopy Adelaida ramos PURCHASING OFFICER Work Phone: Start: 09-15-2022 Mammography Adelaida ramos NP Work Phone: Start: 08-28-2022 Microscopic observat ion [Identifier] in Cervix by Cyto stain Adelaida Carrion PURCHASING OFFICER Work Phone: Start: 07-02-2018 ANESTH KNEE AREA SURGERY CHAPARRITA HENDRICKS Start: 07-02-2018 REMOVAL OF SUPPORT IMPLANT SUKI EBRAHEIM Start: 07-02-2018 TREAT KNEECAP FRACTURE SUKI EBRAHEIM Plan of Treatment Date Care Activity Detail Author Start: 03-23-2033 Screening for malignant neoplasm of colon [place] [facility] Start: 08-28-2025 Screening for malignant neoplasm of cervix [place] [place] [facility] Start: 02-15-2025 Medicare Annual Wellness (AWV) Medicare Annual Wellness (AWV) [place] [facility] Start: 09-17-2024 Screening for malignant neoplasm of breast Mammogram [place] Start: 05-18-2024 Medicare Annual Wellness (AWV) Medicare Annual Wellness (AWV) [place] [facility] Start: 04-04-2024 End: 04-04-2024 Patient encounter procedure 04/04/2024 1:20 PM EST Office Visit [facility] [address] [place] [id number] Adelaida Carrion, BRIANA [address] [place] [address] [facility] Start: 03-01-2024 End: 03-01-2024 Patient encounter procedure 03/01/2024 12:00 PM EST Office Visit [facility] [address] [place] [address] Juany Leggett PA [address] [place] [address] [facility] Start: 02-29-2024 End: 02-29-2024 Patient encounter procedure 02/29/2024 2:40 PM EST Office Visit [facility] [address] [facility] [place] [address] Sonam Brown, PURCHASING OFFICER [address] [place] [address] [place] [facility] Start: 02-16-2024 End: 02-15-2025 THIN PREP TIS PAP AND HR HPV DNA THIN PREP TIS PAP AND HR HPV DNA Pathology and Cytology Routine Well woman exam with routine gynecological exam Expected: 02/16/2024 (Approximate), Expires: 02/15/2025 [facility] Work Phone: Comment on above: Expected: 02/16/2024 (Approximate), Expires: 02/15/2025 Start: 02-16-2024 End: 02-16-2024 Patient encounter procedure 02/16/2024 11:30 AM EST Procedure Visit [facility] [address] [place] [address] Adelaida Carrion NP [address] [place] [address] [facility] Start: 02-04-2024 Influenza vaccination Influenza Vacc ine (#1) [facility] Comment on above: Postponed from 12/05 (Patient Does Not Have Time) Start: 01-28-2024 End: 01-27-2025 URINARY TRACT INFECTION (HTRX) URINARY TRACT INFECTION (HTRX) Lab Routine Acute cystitis without hematuria Expected: 01/28/2024 (Approximate), Expires: 01/27/2025 [facility] Work Phone: Comment on above: Expected: 01/28/2024 (Approximate), Expires: 01/27/2025 Start: 01-28-2024 End: 01-28-2024 Patient encounter procedure [facility] Comment on above: Tobacco dependence ( Primary Dx) Start: 09-16-2023 Screening for malignant neoplasm of breast Mammogram [facility] Start: 08-17-2023 End: 08-17-2023 Patient encounter procedure 08/17/2023 9:20 AM EDT Office Visit [facility] [address] [place] [address] Adelaida Carrion, BRIANA [address] [place] [address] [facility] Start: 05-22-2023 End: 05-22-2023 Patient encounter procedure 05/22/2023 8:45 AM EST Office Visit [facility] [address] [facility] [address] [place] [place] [address] Ashleigh Hines PA [address] [facility] [address] [place] [address] [facility] Start: 05-18-2023 End: 05-18-2023 Patient encounter procedure 05/18/2023 4:30 PM EST Office Visit [facility] [address] [place] [address] Adelaida Carrion, BRIANA [address] [place] [id number] Arrived [facility] Comment on above: Arrived Start: 05-18-2023 End: 05-18-2024 XR Hip - left 3 Views XR hip left 2 or 3 views Imaging Routine Left hip pain Expected: 05/18/2023 (Approximate), Expires: 05/18/2024 [facility] Work Phone: Comment on above: Expected: 05/18/2023 (Approximate), Expires: 05/18/2024 Start: 03-23-2023 [facility] Start: 11-20-2022 [facility] Start: 11-18-2022 Referral to clinical cannery worker [facility] Start: 11-17-2022 Hospital admission [facility] Start: 11-17-2022 [facility] Start: 12-06-1991 Screening for malignant neoplasm of cervix HPV/Cotest [facility] Start: 1960 Medicare Annual Wellness (AWV) Medicare Annual Wellness (AWV) [facility] Start: 1960 Screening for malignant neoplasm of colon [facility] Patient Education [facility] Work Phone: Patient referral [facility] Work Phone: [facility] Immunizations Immunization Date Immunization Notes Care Provider Fa cili 01-28-2024 Influenza, injectabl e, Madin [place] Canine Kidney, preservative free, quadrivalent Adelaida Aichholz PURCHASING OFFICER Work Phone: [facility] 08-17-2023 zoster vaccine recombinant Adelaida Aichholz PURCHASING OFFICER Work Phone: [facility] 02-13-2023 influenza, injectabl e, quadrivalent, preservative free Adelaida Aichholz PURCHASING OFFICER Work Phone: [facility] 02-13-2023 SARS-COV-2 (COVID-19 ) vaccine, mRNA, spike protein, LNP, PF, 50 mcg/0.5 mL Adelaida Aichholz PURCHASING OFFICER Work Phone: [facility] 02-13-2023 influenza virus vaccine, unspecified formulation Adelaida Aichholz PURCHASING OFFICER Work Phone: [facility] 02-19-2022 diphtheria, tetanus toxoids and pertussis vaccine Adelaida Aichholz PURCHASING OFFICER Work Phone: [facility] 03-02-2021 Moderna SARS-CoV-2 Vaccination Adelaida Aichholz PURCHASING OFFICER Work Phone: [facility] 08-24-2020 Moderna SARS-CoV-2 Vaccination Adelaida Aichholz PURCHASING OFFICER Work Phone: [facility] 07-27-2020 Moderna SARS-CoV-2 Vaccination Adelaida Aichholz PURCHASING OFFICER Work Phone: [facility] 05-28-2018 influenza, injectabl e, quadrivalent, preservative free Adelaida Aichholz Work Phone: [facility] 2017 pneumococcal conjuga te vaccine, 13 valent Adelaida Aichholz PURCHASING OFFICER Work Phone: [facility] Payers Date Payer Category Payer Private Health Insurance [id number] 2022 Self-pay [id number] 2022 Medicare [id number] 2022 Medicare (Managed Care) [facility] [id number] 2008 Unknown [id number] 1961 Unknown [id number] 2.16.840.1.946126.3.579.2 .647 1961 Unknown [id number] 2.16.840.1.531717.3.579.2 .593 1961 Unknown [id number] 2.16.840.1.552012.3.579.2 .593 1961 Unknown [id number] 2.16.840.1.431167.3.579.2 .593 1961 Unknown [id number] 2.16.840.1.373047.3.579.2 .593 1961 Unknown [id number] 2.16.840.1.097296.3.579.2 .593 1961 Unknown [id number] 2.16.840.1.039269.3.579.2 .593 1961 Unknown [id number] 2.16.840.1.752848.3.579.2 .593 1961 Unknown [id number] 2.16.840.1.546666.3.579.2 .593 1961 Unknown [id number] 2.16.840.1.822253.3.579.2 .593 1961 Unknown [id number] 2.16.840.1.438195.3.579.2 .593 1961 Unknown [id number] 2.16.840.1.974226.3.579.2 .593 1961 Unknown [id number] 2.16.840.1.298458.3.579.2 .593 1961 Unknown [id number] 2.16.840.1.207161.3.579.2 .593 1961 Unknown [id number] 2.16.840.1.575687.3.579.2 .593 1961 Unknown [id number] 2.16.840.1.633612.3.579.2 .593 1961 Unknown [id number] 2.16.840.1.152969.3.579.2 .593 1961 Unknown [id number] 2.16.840.1.402720.3.579.2 .593 1961 Unknown [id number] 2.16.840.1.115885.3.579.2 .593 1961 Unknown [id number] 2.16.840.1.977661.3.579.2 .593 1961 Unknown [id number] 2.16.840.1.041099.3.579.2 .593 1961 Unknown [id number] 2.16.840.1.564681.3.579.2 .593 1961 Unknown [id number] 2.16.840.1.376164.3.579.2 .593 1961 Unknown [id number] 2.16.840.1.984008.3.579.2 .593 1961 Unknown [id number] 2.16.840.1.511156.3.579.2 .593 1961 Unknown [id number] 2.16.840.1.193999.3.579.2 .196 1961 Unknown [id number] 2.16.840.1.378192.3.579.2 .196 1961 Unknown [id number] 2.16.840.1.790977.3.579.2 .1259 1961 Unknown [id number] 2.16.840.1.480796.3.579.2 .125 1961 Unknown [id number] 2.16.840.1.457547.3.579.2 .125 1961 Unknown [id number] 2.16.840.1.693853.3.579.2 .1258 1961 Unknown [id number] 2.16.840.1.176278.3.579.2 .1259 1961 Unknown [id number] 2.16.840.1.349787.3.579.2 .125 1961 Unknown [id number] 2.16.840.1.878064.3.579.2 .125 1961 Unknown [id number] 2.16.840.1.734066.3.579.2 .125 1961 Unknown [id number] 2.16.840.1.664051.3.579.2 .125 1961 Unknown [id number] 2.16.840.1.645420.3.579.2 .125 1961 Unknown [id number] 2.16.840.1.822527.3.579.2 .1258 1961 Unknown [id number] 2.16.840.1.977366.3.579.2 .1258 1961 Unknown [id number] 2.16.840.1.584849.3.579.2 .1258 1961 Unknown [id number] 2.16.840.1.644330.3.579.2 .1258 1961 Unknown [id number] 2.16.840.1.459253.3.579.2 .1258 1961 Unknown [id number] 2.16.840.1.553232.3.579.2 .1258 1961 Unknown [id number] 2.16.840.1.538336.3.579.2 .9 1959 Medicare [id number] 1959 Unknown [id number] Medicare Medicare [id number] Unknown [id number] 2.16.840.1.717442.3.579.2 .531 Unknown [id number] 2.16.840.1.540853.3.579.2 .531 Social History Date Type Detail Facility Start: 11-18-2022 End: 10-14-2023 Tobacco smoking status SDIS Ex-smoker (finding) [facility] Start: 1960 Sex Assigned At Female [facility] Start: 03-25-2023 End: 08-16-2023 Sex Assigned At [facility] Start: 04-06-1976 End: 04-06-2016 History of tobacco use Current smoker [facility] Start: 04-06-1976 End: 04-06-2016 History of tobacco use Cigarette Smoker [facility] Start: 02-09-2023 End: 08-16-2023 Cigarettes smoked current (pack per day) - Reported 1 [facility] Start: 02-09-2023 End: 10-14-2023 Tobacco use and exposure Smokeless tobacco non-user [facility] Start: 05-18-2023 End: 02-16-2024 Alcohol intake Lifetime non-drinker (finding) [facility] [...] Functional status Patient at Baseline [facility] Work Phone: Mental Status Date Assessment Result Facility 11-20-2022 Cognitive function Cognitive Sta tus Patient is Progressing Toward Baseline [facility] Work Phone: Clinical Notes 10-03-2021 to 02-16-2024 VALERIE LU - 02/16/2024 11:30 AM Mynor Carrion, PURCHASING OFFICER - 02/16/2024 11:30 AM Mynor Carrion, PURCHASING OFFICER - 02/16/2024 6:58 AM ESTLisa Sheyla, 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 Michelle Be is a 63 y.o. female presents with chief complaint of No chief complaint on file. HPI: Gynecologic Exam The patient's pertinent negatives include no genital itching, genital lesions, genital odor, genital rash, missed menses, pelvic pain, vaginal bleeding or vaginal discharge. The patient is experiencing no pain. She is not . Associated symptoms include back pain, joint pain and painful intercourse. Pertinent negatives include no abdominal pain, chills, constipation, diarrhea, dysuria, fever, frequency, headaches, hematuria, nausea, rash, sore throat, urgency or vomiting. She is not sexually active. No, her partner does not have an STD. She uses abstinence for contraception. She is postmenopausal. There is no history of an abdominal surgery, a gynecological surgery, menorrhagia, metrorrhagia, ovarian cysts, perineal abscess or a terminated . SUBJECTIVE: MEDICATIONS: Current Outpatient Medications Medication Instructions amLODIPine (NORVASC) 10 mg, Oral, Daily biotin 5 MG tablet Pt taking OTC ([employer]) Calcium Citrate-Vitamin D (CITRACAL + D PO) Pt taking OTC ([employer]) carvedilol (COREG) 12.5 mg, Oral, 2 times [...] Daily Magnesium 400 MG capsule Pt taking OTC([employer]) Melatonin 12 MG tablet 1 tablet, Oral, Nightly Multiple Vitamins-Minerals (BARIATRIC MULTIVITAMINS/IRON PO) Pt taking OTC ([employer]) nystatin (Mycostatin) 611591 UNIT/GM powder 1 application , Topical, 2 [...] mg, Oral, Daily ALLERGIES: Allergies Allergen Reactions Eszopiclone Hallucinations and Anaphylaxis Altered mental status and non responsive Penicillins [...] stool, constipation, diarrhea, nausea and vomiting. Genitourinary: Positive for vaginal dryness. Negative for difficulty urinating, dysuria, frequency, hematuria, menorrhagia, missed menses, pelvic pain, urgency and vaginal discharge. Musculoskeletal: Positive for back pain and joint pain. Negative for arthralgias, joint swelling and myalgias. Skin: Negative for [...] Anxiety 05/18/2023 Bipolar disorder with severe depression ([facility]) 05/18/2023 Brain lesion Brain vascular malformation Chronic pain disorder Closed fracture of patella 02/04/2018 Colon polyps Constipation Degenerative cervical disc Degenerative lumbar disc Depression ([facility]) 05/18/2023 Diastolic dysfunction Dizziness 05/18/2023 Dysphagia Fibromyalgia Fibromyalgia Gastrocnemius equinus GERD (gastroesophageal reflux disease) Heart murmur Hematoma of right breast Hemiparesis ([facility]) Hemiparesis, right ([facility]) Hemorrhoid int/external hemorrhoids Hiatal hernia Iron deficiency Left foot pain 03/25/2023 Lower extremity edema Mood disorder ([facility]) mixed mood disorder OSMANY (obstructive sleep apnea) Osteoporosis ([facility]) Overactive bladder Pre-diabetes Primary hypertension ([facility]) 03/25/2023 PTSD (post-traumatic stress disorder) ([facility]) Restless leg Right knee pain Right sided weakness S/P bariatric surgery Shingles Slurred speech Stroke ([facility]) 2018 Tenosynovitis, de Quervain [...] in her mother. OBJECTIVE: Visit Vitals BP 122/82 (BP Location: Left arm, Patient Position: Sitting, BP Cuff Size: Large adult long) Pulse 69 Temp 98.5 F (Temporal) Resp 20 Ht 5' 4 Wt 295 lb 12.8 oz SpO2 98% BMI 50.77 kg/m Smoking Status Former BSA 2.46 m Physical Exam Vitals and nursing note reviewed. Exam conducted with a knurling machine tender present. Constitutional: General: She is not in acute [...] is normal. Breath sounds: Normal breath sounds. Chest: Chest wall: No mass, lacerations, deformity, swelling or tenderness. Breasts: Breasts are symmetrical. Right: Normal. No inverted nipple, mass or nipple discharge. Left: Normal. No inverted nipple, mass or nipple discharge. Abdominal: General: Bowel sounds are normal. There is no distension. Palpations: Abdomen is soft. There is no mass. Tenderness: There is no abdominal tenderness. Hernia: There is no hernia in the left inguinal area or right inguinal area. Genitourinary: Exam position: Lithotomy position. Pubic Area: No rash. Labia: Right: No rash or tenderness. Left: No rash or tenderness. Urethra: No prolapse, urethral pain, urethral swelling or urethral lesion. Vagina: No vaginal discharge or tenderness. Cervix: Normal. No friability or erythema. Uterus: Normal. Not fixed and no uterine prolapse. Adnexa: Right adnexa normal and left adnexa normal. Right: No mass or tenderness. Left: No mass or tenderness. Comments: Pelvic exam limited by body habitus Atrophic changes of vaginal tissue Musculoskeletal: General: Normal range of motion. Cervical back: Normal range of motion and neck supple. Right lower leg: No edema. Left lower leg: No edema. Lymphadenopathy: Lower Body: No right inguinal adenopathy. No left inguinal adenopathy. Skin: General: Skin is warm and dry. Capillary Refill: Capillary refill takes 2 to 3 seconds. Findings: No rash (erythema ab igne rash bilat lower lumbar). Neurological: General: No focal deficit present. Mental Status: She is alert and oriented to person, place, and time. Psychiatric: Mood and Affect: Mood normal. Behavior: Behavior normal. Thought Content: Thought content normal. Judgment: Judgment normal. ASSESSMENT AND PLAN: No follow-ups on file. Problem List Items Addressed This Visit Morbid obesity (CMS/HCC) Discussed with patient their BMI (actual, verses recommended). We have also discussed lifestyle modifications: attempts to perform physical activity as chronic conditions allow, also to monitor dietary intake: increasing protein/fruits/veggies and lowering carb intake (unless contraindicated). Limit sodas, juices, and sugary drinks. Well woman exam with routine gynecological exam - Primary THIN PREP, fu as per PAP results indicate Monthly BSE Calcium/vit D supplement unless chronic conditions indicate not Exercise as chronic conditions allow Associated Problem(s): Morbid obesity (CMS/HCC) Discussed with patient their BMI (actual, verses recommended). We have also discussed lifestyle modifications: attempts to perform physical activity as chronic conditions allow, also to monitor dietary intake: increasing protein/fruits/veggies and lowering carb intake (unless contraindicated). Limit sodas, juices, and sugary drinks. Associated Problem(s): Well woman exam with routine gynecological exam THIN PREP, fu as per PAP results indicate Monthly BSE Calcium/vit D supplement unless chronic conditions indicate not Exercise as chronic conditions allow documented in this encounter [facility] 01-28-2024 History of Present illness Narrative Associated [...] ER fu for UTI and dehydration. See [facility] for HPI Was sent home on Bactrim. Feels completely fine now, no fever, chills, malodorous urine, no constipation diarrhea or abd pain SUBJECTIVE: MEDICATIONS: Current Outpatient Medications Medication Instructions amLODIPine (NORVASC) 10 mg, Oral, Daily biotin 5 MG tablet Pt taking OTC ([employer]) Calcium Citrate-Vitamin D (CITRACAL + D PO) Pt taking OTC ([employer]) carvedilol (COREG) 12.5 mg, Oral, 2 times [...] Daily Magnesium 400 MG capsule Pt [facility]) Melatonin 12 MG tablet 1 tablet, Oral, Nightly Multiple Vitamins-Minerals (BARIATRIC MULTIVITAMINS/IRON PO) Pt taking OTC ([employer]) nystatin (Mycostatin) 419815 UNIT/GM powder 1 application , Topical, 2 [...] disorder with severe depression (CMS/HCC) 05/18/2023 Brain lesion Brain vascular malformation Chronic pain disorder Closed fracture of patella 02/04/2018 Colon polyps Constipation Degenerative cervical disc Degenerative lumbar disc Depression (CMS/HCC) 05/18/2023 Diastolic dysfunction Dizziness 05/18/2023 Dysphagia Fibromyalgia Fibromyalgia Gastrocnemius equinus GERD (gastroesophageal reflux disease) Heart murmur Hematoma of right breast Hemiparesis (CMS/HCC) Hemiparesis, right ([facility]) Hemorrhoid int/external hemorrhoids Hiatal hernia Iron deficiency Left foot pain 03/25/2023 Lower extremity edema Mood disorder ([facility]) mixed mood disorder OSMANY (obstructive sleep apnea) Osteoporosis ([facility]) Overactive bladder Pre-diabetes Primary hypertension ([facility]) 03/25/2023 PTSD (post-traumatic stress disorder) ([facility]) Restless leg Right knee pain Right sided weakness S/P bariatric surgery Shingles Slurred speech Stroke ([facility]) 2018 Tenosynovitis, de Quervain [...] of the risks of continued smoking: stroke, [place], all forms of cancer, lung disease, and [...] Relevant Orders Flu vaccine, MDCK, quadrivalent, PF ([id number]) (Flucelvax single dose syringe) Associated Problem(s): Tobacco dependence The patient has been advised of the risks of continued smoking: stroke, [place], all forms of cancer, lung disease, and . Options for quitting smoking include: cold turkey, hypnosis, acupuncture, nicotine replacement meds (gum, lozenges, and patches), Buproprion, and Varenicline. At this time pt is encouraged to evaluate their goals for wanting to quit smoking, and reach out to provider when ready to start this process documented in this encounter [facility] 05-18-2023 History of Present illness Narrative Associated [...] (BARIATRIC MULTIVITAMINS/IRON PO) Bariatric Multivitamins/Iron nystatin (Mycostatin) 662833 UNIT/GM powder 1 application , Topical, 2 [...] pain 03/25/2023 Lower extremity edema Mood disorder (CMS/HCC) mixed mood disorder OSMANY (obstructive sleep apnea) Osteoporosis ([facility]) Overactive bladder Pre-diabetes Primary hypertension ([facility]) 03/25/2023 PTSD (post-traumatic stress disorder) ([facility]) Restless leg Right knee pain Right sided weakness S/P bariatric surgery Shingles Slurred speech Stroke ([facility]) 2018 Tenosynovitis, de Quervain [...] yearly and prn documented in this encounter [facility] 03-23-2023 Procedure note [facility] 12-19-2022 Evaluation note Encounter Date Diagnosis Assessment Notes Dec, Skin candidiasis (ICD-10 - B37.2) Drink plenty fluids, get plenty of rest. Continue home medications as prescribed. Take the Diflucan as prescribed until gone. Follow-up with your family physician if no improvement in 2 to 3 days [employer] Other 08-17-2023 Discharge summary Author Eduardo bautista [facility] November 20, 2022 6:38am Note Date/Time November 20, 2022 6: 38am [facility] [address] [place] [id number] Discharge Summary Signed Patient: Michelle Be MR#: [id number] : 1960 Acct:[id number] Age/Sex: 61 / F Adm Date: 3 Loc: 1S Room: 2P6233-[address]: Gaudencio Monk MD Copies to: MD Adelaida Álvarez, PURCHASING OFFICERMaldonadoC~ Providers Date of Discharge: 11/20/22 Discharging Provider: [...] at that time.? She reports moving to [place] from [place] in 2011 and was then diagnosed with bipolar disorder at [facility] in [place], where she still follows with a therapist.? Sherdeisyorts that she has been with 7 therapists in the last 9 years and is currentlycompleting EMDR with her current therapist. Past hospitalizations: Her most recent hospitalization was 5 years ago [facility] in [place] for the same feeling she is experiencing [...] worked since 2010 due to her fibromyalgia.? [facility]. 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 (insert date/time [...] signed by Eduardo Monk MD> 11/20/22 0638 [facility] Work Phone: 1(730) 432-115708-16-2023 Progress note Author Eduardo bautista [facility] November 19, 2022 6:25am Note Date/Time November 19, 2022 6: 25am [facility] [address] [place] [address] Psychiatry Progress Note Signed Patient: Michelle Be MR#: [id number] : 1960 Acct:[id number] Age/Sex: 61 / F Adm Date: 3 Loc: Room: [address] [place] [address] Type : ADM IN Attending Dr: Gaudencio [...] signed by Eduardo Monk MD> 11/19/22 0625 [facility] Work Phone: 1(270) 639-236208-15-2023 Progress note Author Eduardo bautista [facility] November 18, 2022 11:01am Note Date/Time November 18, 2022 10 :11am [facility] [address] [place] [address] Psychiatry Progress Note Signed Patient: Michelle Be MR#: [id number] : 1960 Acct:[id number] Age/Sex: 61 / F Adm Date: 3 Loc: 1S Room: [address] [place] [address] Type : ADM IN Attending Dr: Gaudencio Monk MD Copies to: ~ Date of Service: 11/18/2022 Subjective Subjective Narrative: I spoke with a distraught Ms. Michelle Eisenhower today whom states her pain has worsened [...] by requesting a schedule 2 referring to [facility] for pain management specifically every 4-6 hours [...] signed by MD DA Rangel> 11/18/22 1011 [facility] Work Phone: 1(373) 227-963508-14-2023 History and physical note Author Eduardo bautista [facility] November 17, 2022 12:48pm Note Date/Time November 17, 2022 12 :48pm [facility] [address] [place] [address] Psychiatry H&P Signed Patient: Michelle Be MR#: [id number] : 1960 Acct:[id number] Age/Sex: 61 / F Adm Date: 3 Loc: Room: [address] [place] [address] Type: ADM IN Attending Dr: Gaudencio Monk [...] at that time. She reports moving to [place] from [place] in 2011 and was then diagnosed with bipolar disorder at [facility] in [place], where she still follows with a therapist. Shereports that she has been with 7 therapists in the last 9 years and is currentlycompleting EMDR with her current therapist. Past hospitalizations: Her most recent hospitalization was 5 years ago [facility] for the same feeling [...] worked since 2010 due to her fibromyalgia. [facility]. Relationships: Reports having people [...] equal bilaterally. CN XII: Tongue protrusion midline ON LICENSE OF [facility] Medical History (Updated 11/17/22 @ 10:42 by [...] signed by Eduardo Monk MD> 11/17/22 1248 [facility] Work Phone: 1(485) 767-403403-23-2023 NoteCONSULTATION CONSULTATION DATE: 06/26/2022 To: Nurse Carrion [...] L5-S1 facet joint injection under fluoroscopic guidance.[facility] [id number] NotePROCEDURE: XR SHOULDER RT 2V or > [...] Electronically authenticated by: KINGSLEY CLEMENTS Date: 2022-05-09 09:21[facility]01-23-2023 NotePROCEDURE: XR WRIST LT MIN 3 [...] Electronically authenticated by: KINGSLEY CLEMENTS Date: 2022-04-28 13:31[facility]12-29-2022 NoteCONSULTATION CONSULTATION DATE: 04/03/2022 HISTORY OF [...] her in three months, unless otherwise indicated.[facility] [id number] NoteCONSULTATION CONSULTATION DATE: 01/02/2022 This is a [...] by Dr. Macedo to [facility] in [place] for the compounded cream. She needs a [...] in three months' time unless otherwise indicated.[facility] [id number] NotePROCEDURE: XR ANKLE RT MIN 3 VIEWS, [...] Electronically authenticated by: KINGSLEY CLEMENTS Date: 2022-01-01 13:11[facility]09-28-2022 NotePROCEDURE: XR ANKLE RT MIN 3 [...] Electronically authenticated by: KINGSLEY CLEMENTS Date: 2022-01-01 13:11[facility]08-18-2022 NotePROCEDURE: XR FOOT RT MIN 3 VIEWS HISTORY: Pain in right foot , chronic COMPARISON: XR foot right 2020 FINDINGS: BONES:No fracture, dislocation, bone lesion. Small calcaneal degenerative enthesophytes. SOFT TISSUES:No visible soft tissue swelling. EFFUSION:None visible. OTHER: Negative. IMPRESSION: 1. No acute bone abnormality or significant degenerative joint disease. Electronically authenticated by: KINGSLEY CLEMENTS Date: 2021-11-21 16:13[facility]06-30-2022 NoteCONSULTATION CONSULTATION DATE: 10/03/2021 This is [...] and Approved by: ZELDA MCDANIEL . 10/10/2021 10:22:00[facility] Diagnosis Onset Date Resolution Status Allergies acute Bipolar 2 disorder acute Hypertension acute Morbid obesity with BMI of 45.0-49.9, adult acute OSMANY (obstructive sleep apnea) acute Restless legs syndrome acute [facility] Work Phone: Evaluation noteNo [employer] [employer] Other Evaluation noteNo assessment information available [facility] Work Phone: Evaluation note* [...] hematuria- Primary [facility] Diagnosis Left foot pain- Primary Pain in soft tissues of limb Primary hypertension ([facility]) Unspecified essential hypertension Class 3 severe obesity due to excess calories without serious comorbidity with body mass index (BMI) of 45.0 to 49.9 in adult ([facility]) Encounter for annual wellness visit (AWV) in Medicare patient- Primary OSMANY (obstructive sleep apnea) Obstructive sleep apnea (adult) (pediatric) Chronic pain disorder Chronic pain syndrome Gastroesophageal reflux disease, unspecified whether esophagitis present Overactive bladder Hypertonicity of bladder Lower extremity edema Edema Pre-diabetes Other abnormal glucose Morbid obesity ([facility]) Morbid obesity Yeast infection of the skin Candidiasis of skin and nails Tobacco dependence Tobacco use disorder Mood disorder ([facility]) Unspecified episodic mood disorder Primary hypertension ([facility]) Unspecified essential hypertension Left hip pain Pain in joint, pelvic region and thigh Open wound of anterior abdominal wall, initial encounter Primary hypertension ([facility])- Primary Unspecified essential hypertension Yeast infection of the skin Candidiasis of skin and nails Morbid obesity ([facility]) Morbid obesity Primary hypertension ([facility])- Primary Unspecified essential hypertension Encounter for screening mammogram for malignant neoplasm of breast Gastroesophageal reflux disease, unspecified whether esophagitis present Acute gout of right foot, unspecified cause Osteoporosis, unspecified osteoporosis type, unspecified pathological fracture presence ([facility]) Morbid obesity ([facility]) Morbid obesity Pre-diabetes Other abnormal glucose Anemia, unspecified type Vitamin deficiency Unspecified vitamin deficiency Post-viral cough syndrome Primary hypertension ([facility])- Primary Unspecified essential hypertension Allergic rhinitis, unspecified Acute cough Morbid obesity ([facility]) Morbid obesity Former cigarette smoker Personal history of tobacco use, presenting hazards to health Toxic metabolic encephalopathy- Primary Hemiparesis, right ([facility]) Unspecified hemiplegia affecting unspecified side Acute respiratory failure with hypoxia ([facility]) Heart murmur Undiagnosed cardiac murmurs Primary hypertension ([facility]) Unspecified essential hypertension Morbid obesity ([facility]) Morbid obesity Bipolar disorder with severe depression ([facility]) Slurred speech Other speech disturbance Bilateral lower extremity edema- Primary Primary hypertension ([facility]) Unspecified essential hypertension Lower extremity edema Edema Essential (primary) hypertension ([facility]) Unspecified essential hypertension Gastro-esophageal reflux disease without esophagitis Allergic rhinitis, unspecified Bilateral lower extremity edema- Primary Morbid (severe) obesity due to excess calories ([facility]) Body mass index (BMI) 45.0-49.9, adult ([facility]) Pre-diabetes Other abnormal glucose Bilateral lower extremity edema- Primary Essential (primary) hypertension ([facility]) Unspecified essential hypertension Allergic rhinitis, unspecified OSMANY (obstructive sleep apnea) Obstructive sleep apnea (adult) (pediatric) Primary hypertension ([facility]) Unspecified essential hypertension Morbid obesity ([facility]) Morbid obesity Acute cystitis without hematuria- Primary Tobacco dependence Tobacco use disorder Needs flu shot Need for prophylactic vaccination and inoculation against influenza Morbid obesity ([facility]) Morbid obesity documented in [facility] encounter [facility]* Diagnosis Left foot pain- Primary Pain in soft tissues of limb Primary hypertension ([facility]) Unspecified essential hypertension Class 3 severe obesity due to excess calories without serious comorbidity with body mass index (BMI) of 45.0 to 49.9 in adult ([facility]) Encounter for annual wellness visit (AWV) in Medicare patient- Primary OSMANY (obstructive sleep apnea) Obstructive sleep apnea (adult) (pediatric) Chronic pain disorder Chronic pain syndrome Gastroesophageal reflux disease, unspecified whether esophagitis present Overactive bladder Hypertonicity of bladder Lower extremity edema Edema Pre-diabetes Other abnormal glucose Morbid obesity ([facility]) Morbid obesity Yeast infection of the skin Candidiasis of skin and nails Tobacco dependence Tobacco use disorder Mood disorder ([facility]) Unspecified episodic mood disorder Primary hypertension ([facility]) Unspecified essential hypertension Left hip pain Pain in joint, pelvic region and thigh Open wound of anterior abdominal wall, initial encounter Primary hypertension ([facility])- Primary Unspecified essential hypertension Yeast infection of the skin Candidiasis of skin and nails Morbid obesity ([facility]) Morbid obesity Primary hypertension ([facility])- Primary Unspecified essential hypertension Encounter for screening mammogram for malignant neoplasm of breast Gastroesophageal reflux disease, unspecified whether esophagitis present Acute gout of right foot, unspecified cause Osteoporosis, unspecified osteoporosis type, unspecified pathological fracture presence ([facility]) Morbid obesity ([facility]) Morbid obesity Pre-diabetes Other abnormal glucose Anemia, unspecified type Vitamin deficiency Unspecified vitamin deficiency Post-viral cough syndrome Primary hypertension ([facility])- Primary Unspecified essential hypertension Allergic rhinitis, unspecified Acute cough Morbid obesity ([facility]) Morbid obesity Former cigarette smoker Personal history of tobacco use, presenting hazards to health Toxic metabolic encephalopathy- Primary Hemiparesis, right ([facility]) Unspecified hemiplegia affecting unspecified side Acute respiratory failure with hypoxia ([facility]) Heart murmur Undiagnosed cardiac murmurs Primary hypertension ([facility]) Unspecified essential hypertension Morbid obesity ([facility]) Morbid obesity Bipolar disorder with severe depression ([facility]) Slurred speech Other speech disturbance Bilateral lower extremity edema- Primary Primary hypertension ([facility]) Unspecified essential hypertension Lower extremity edema Edema Essential (primary) hypertension ([facility]) Unspecified essential hypertension Gastro-esophageal reflux disease without esophagitis Allergic rhinitis, unspecified Bilateral lower extremity edema- Primary Morbid (severe) obesity due to excess calories ([facility]) Body mass index (BMI) 45.0-49.9, adult ([facility]) Pre-diabetes Other abnormal glucose Bilateral lower extremity edema- Primary Essential (primary) hypertension ([facility]) Unspecified essential hypertension Allergic rhinitis, unspecified OSMANY (obstructive sleep apnea) Obstructive sleep apnea (adult) (pediatric) Primary hypertension ([facility]) Unspecified essential hypertension Morbid obesity ([facility]) Morbid obesity Acute cystitis without hematuria- Primary Tobacco dependence Tobacco use disorder Needs flu shot Need for prophylactic vaccination and inoculation against influenza Morbid obesity ([facility]) Morbid obesity Restless leg Restless legs syndrome (RLS) documented in this encounter [facility]* Diagnosis Left foot pain- Primary Pain in soft tissues of limb Primary hypertension ([facility]) Unspecified essential hypertension Class 3 severe obesity due to excess calories without serious comorbidity with body mass index (BMI) of 45.0 to 49.9 in adult ([facility]) Encounter for annual wellness visit (AWV) in Medicare patient- Primary OSMANY (obstructive sleep apnea) Obstructive sleep apnea (adult) (pediatric) Chronic pain disorder Chronic pain syndrome Gastroesophageal reflux disease, unspecified whether esophagitis present Overactive bladder Hypertonicity of bladder Lower extremity edema Edema Pre-diabetes Other abnormal glucose Morbid obesity ([facility]) Morbid obesity Yeast infection of the skin Candidiasis of skin and nails Tobacco dependence Tobacco use disorder Mood disorder ([facility]) Unspecified episodic mood disorder Primary hypertension ([facility]) Unspecified essential hypertension Left hip pain Pain in joint, pelvic region and thigh Open wound of anterior abdominal wall, initial encounter Primary hypertension ([facility])- Primary Unspecified essential hypertension Yeast infection of the skin Candidiasis of skin and nails Morbid obesity ([facility]) Morbid obesity Primary hypertension ([facility])- Primary Unspecified essential hypertension Encounter for screening mammogram for malignant neoplasm of breast Gastroesophageal reflux disease, unspecified whether esophagitis present Acute gout of right foot, unspecified cause Osteoporosis, unspecified osteoporosis type, unspecified pathological fracture presence ([facility]) Morbid obesity ([facility]) Morbid obesity Pre-diabetes Other abnormal glucose Anemia, unspecified type Vitamin deficiency Unspecified vitamin deficiency Post-viral cough syndrome Primary hypertension ([facility])- Primary Unspecified essential hypertension Allergic rhinitis, unspecified Acute cough Morbid obesity ([facility]) Morbid obesity Former cigarette smoker Personal history of tobacco use, presenting hazards to health Toxic metabolic encephalopathy- Primary Hemiparesis, right ([facility]) Unspecified hemiplegia affecting unspecified side Acute respiratory failure with hypoxia ([facility]) Heart murmur Undiagnosed cardiac murmurs Primary hypertension ([facility]) Unspecified essential hypertension Morbid obesity ([facility]) Morbid obesity Bipolar disorder with severe depression ([facility]) Slurred speech Other speech disturbance Bilateral lower extremity edema- Primary Primary hypertension ([facility]) Unspecified essential hypertension Lower extremity edema Edema Essential (primary) hypertension ([facility]) Unspecified essential hypertension Gastro-esophageal reflux disease without esophagitis Allergic rhinitis, unspecified Bilateral lower extremity edema- Primary Morbid (severe) obesity due to excess calories ([facility]) Body mass index (BMI) 45.0-49.9, adult ([facility]) Pre-diabetes Other abnormal glucose Bilateral lower extremity edema- Primary Essential (primary) hypertension ([facility]) Unspecified essential hypertension Allergic rhinitis, unspecified OSMANY (obstructive sleep apnea) Obstructive sleep apnea (adult) (pediatric) Primary hypertension ([facility]) Unspecified essential hypertension Morbid obesity ([facility]) Morbid obesity Acute cystitis without hematuria- Primary Tobacco dependence Tobacco use disorder Needs flu shot Need for prophylactic vaccination and inoculation against influenza Morbid obesity ([facility]) Morbid obesity Well woman exam with routine gynecological exam- Primary Routine gynecological examination Morbid obesity ([facility]) Morbid obesity [facility] Diagnosis Left foot pain- Primary Pain in soft tissues of limb Primary hypertension ([facility]) Unspecified essential hypertension Class 3 severe obesity due to excess calories without serious comorbidity with body mass index (BMI) of 45.0 to 49.9 in adult ([facility]) Encounter for annual wellness visit (AWV) in Medicare patient- Primary OSMANY (obstructive sleep apnea) Obstructive sleep apnea (adult) (pediatric) Chronic pain disorder Chronic pain syndrome Gastroesophageal reflux disease, unspecified whether esophagitis present Overactive bladder Hypertonicity of bladder Lower extremity edema Edema Pre-diabetes Other abnormal glucose Morbid obesity ([facility]) Morbid obesity Yeast infection of the skin Candidiasis of skin and nails Tobacco dependence Tobacco use disorder Mood disorder ([facility]) Unspecified episodic mood disorder Primary hypertension ([facility]) Unspecified essential hypertension Left hip pain Pain in joint, pelvic region and thigh Open wound of anterior abdominal wall, initial encounter Primary hypertension ([facility])- Primary Unspecified essential hypertension Yeast infection of the skin Candidiasis of skin and nails Morbid obesity ([facility]) Morbid obesity Primary hypertension ([facility])- Primary Unspecified essential hypertension Encounter for screening mammogram for malignant neoplasm of breast Gastroesophageal reflux disease, unspecified whether esophagitis present Acute gout of right foot, unspecified cause Osteoporosis, unspecified osteoporosis type, unspecified pathological fracture presence ([facility]) Morbid obesity ([facility]) Morbid obesity Pre-diabetes Other abnormal glucose Anemia, unspecified type Vitamin deficiency Unspecified vitamin deficiency Post-viral cough syndrome Primary hypertension ([facility])- Primary Unspecified essential hypertension Allergic rhinitis, unspecified Acute cough Morbid obesity ([facility]) Morbid obesity Former cigarette smoker Personal history of tobacco use, presenting hazards to health Toxic metabolic encephalopathy- Primary Hemiparesis, right ([facility]) Unspecified hemiplegia affecting unspecified side Acute respiratory failure with hypoxia ([facility] Heart murmur Undiagnosed cardiac murmurs Primary hypertension ([facility]) Unspecified essential hypertension Morbid obesity ([facility]) Morbid obesity Bipolar disorder with severe depression ([facility]) Slurred speech Other speech disturbance Bilateral lower extremity edema- Primary Primary hypertension ([facility]) Unspecified essential hypertension Lower extremity edema Edema Essential (primary) hypertension ([facility]) Unspecified essential hypertension Gastro-esophageal reflux disease without esophagitis Allergic rhinitis, unspecified Bilateral lower extremity edema- Primary Morbid (severe) obesity due to excess calories ([facility]) Body mass index (BMI) 45.0-49.9, adult ([facility]) Pre-diabetes Other abnormal glucose Bilateral lower extremity edema- Primary Essential (primary) hypertension ([facility]) Unspecified essential hypertension Allergic rhinitis, unspecified OSMANY (obstructive sleep apnea) Obstructive sleep apnea (adult) (pediatric) Primary hypertension ([facility]) Unspecified essential hypertension Morbid obesity ([facility]) Morbid obesity Acute cystitis without hematuria- Primary Tobacco dependence Tobacco use disorder Needs flu shot Need for prophylactic vaccination and inoculation against influenza Morbid obesity (CMS/HCC) Morbid obesity Well woman exam with routine gynecological exam- Primary Routine gynecological examination Morbid obesity (CMS/HCC) Morbid obesity Essential (primary) hypertension ([facility]) Unspecified essential hypertension Allergic rhinitis, unspecified documented in this encounter [facility]* Diagnosis Left foot pain- Primary Pain in soft tissues of limb Primary hypertension ([facility]) Unspecified essential hypertension Class 3 severe obesity due to excess calories without serious comorbidity with body mass index (BMI) of 45.0 to 49.9 in adult ([facility]) Encounter for annual wellness visit (AWV) in [...] Tobacco dependence Tobacco use disorder Mood disorder ([facility]) Unspecified episodic mood disorder Primary hypertension ([facility]) Unspecified essential hypertension Left hip pain Pain in joint, pelvic region and thigh Open wound of anterior abdominal wall, initial encounter Primary hypertension (CMS/HCC)- Primary Unspecified essential hypertension Yeast infection of the skin Candidiasis of skin and nails Morbid obesity (CMS/HCC) Morbid obesity Primary hypertension ([facility])- Primary Unspecified essential hypertension Encounter for screening mammogram for malignant neoplasm of breast Gastroesophageal reflux disease, unspecified whether esophagitis present Acute gout of right foot, unspecified cause Osteoporosis, unspecified osteoporosis type, unspecified pathological fracture presence ([facility]) Morbid obesity (CMS/HCC) Morbid obesity Pre-diabetes Other abnormal glucose Anemia, unspecified type Vitamin deficiency Unspecified vitamin deficiency Post-viral cough syndrome Primary hypertension (CMS/HCC)- Primary Unspecified essential hypertension Allergic rhinitis, unspecified Acute cough Morbid obesity ([facility]) Morbid obesity Former cigarette smoker Personal history of tobacco use, presenting hazards to health Toxic metabolic encephalopathy- Primary Hemiparesis, right ([facility]) Unspecified hemiplegia affecting unspecified side Acute respiratory failure with hypoxia ([facility]) Heart murmur Undiagnosed cardiac murmurs Primary hypertension ([facility]) Unspecified essential hypertension Morbid obesity ([facility]) Morbid obesity Bipolar disorder with severe depression (CMS/HCC) Slurred speech Other speech disturbance Bilateral lower extremity edema- Primary Primary hypertension (CMS/HCC) Unspecified essential hypertension Lower extremity edema Edema Essential (primary) hypertension (CMS/HCC) Unspecified essential hypertension Gastro-esophageal reflux disease without esophagitis Allergic rhinitis, unspecified Bilateral lower extremity edema- Primary Morbid (severe) obesity due to excess calories (CMS/HCC) Body mass index (BMI) 45.0-49.9, adult (CMS/HCC) Pre-diabetes Other abnormal glucose Bilateral lower extremity edema- Primary Essential (primary) hypertension (CMS/HCC) Unspecified essential hypertension Allergic rhinitis, unspecified OSMANY (obstructive sleep apnea) Obstructive sleep apnea (adult) (pediatric) Primary hypertension (CMS/HCC) Unspecified essential hypertension Morbid obesity (CMS/HCC) Morbid obesity Acute cystitis without hematuria- Primary Tobacco dependence Tobacco use disorder Needs flu shot Need for prophylactic vaccination and inoculation against influenza Morbid obesity (CMS/HCC) Morbid obesity Well woman exam with routine gynecological exam- Primary Routine gynecological examination Morbid obesity (CMS/HCC) Morbid obesity Allergic rhinitis, unspecified documented in this encounter [facility] HealthcareHistory and physical note Author Jace Graham [facility] March 23, 2023 11:21am Note Date/Time March 23, 2023 11:21am [facility] [address] [place] [address] Gastroenterology H&P Signed Patient: Michelle Be MR#: [id number] : 1960 Acct:[id number] Age/Sex: 62 / F Adm Date: 3 Loc: Room: Type: [facility] Attending Dr: Jace Graham MD [...] signed by Jace Graham MD> 03/23/23 [address] [facility] Work Phone: History general Narrative - [...] see above surg Hospitalization History stroke 2018 [employer] Other Hospital Discharge instructions Additional Instructions Regular Diet [facility]charge instructions Additional [...] NOT operate machinery such as power tools, [employer] mowers, snow blowers, sewing machines, etc. for [...] years. -Follow up with PCP. -Office number [phone].[facility] Work Phone: Summary Purpose Family History [...] section and content) DATE CREATED AUTHOR 02/18/2019 [facility] DATE CREATED AUTHOR AUTHOR'S ORGANIZ ATION 11/15/2021 [facility] DATE CREATED AUTHOR AUTHOR'S ORGANIZ ATION 08/16/2022 [facility] DATE CREATED AUTHOR AUTHOR'S ORGANIZ ATION 01/28/2024 [facility] DATE CREATED AUTHOR AUTHOR'S ORGANIZ ATION 01/31/2024 [facility] DATE CREATED AUTHOR AUTHOR'S ORGANIZ ATION 02/18/2024 [facility] [employer] Care Teams (unrecognized sec tion and content) Team Status: Active Member Role Status Dates Adelaida Mcnair Sheyla Primary Care Provider Active Team Status: Inactive [...] JOHANN Other Provider Active Elzbieta Kim , JOAHNN Other Provider Active Walker Pringle MD Other Provider Active Adelaiad Marsh APRN Other Provider Active Jessica Murillo [...] MD Other Provider Active Joellen Le , PURCHASING OFFICER-C Other Provider Active Severo Yancey MD Other Provider Active Rao Webber MD Other Provider Active Yuan Shi MD Other Provider Active Delroy Ramirez MD Other Provider Active Berta Comer , DO Other Provider Active Negrito Ruiz , DO Other Provider Active Lacho Singh , DO Other Provider Active Rachana Hobson SCIENTIFIC MANAGER Other Provider Active Rob Lake , DO Other Provider Active Jeff Alvarez MD Other Provider Active Urmila Rinaldi , SCIENTIFIC MANAGER Other Provider Active Bina Mayberry APRN Other Provider Active Mir Bradford MD Other Provider Active Te Da Silva MD Other Provider Active Debra Landaverde RN Other Provider Active Team Status: Inactive Member Role Status Dates Adelaida Carrion Primary Care Provider Active Jace Graham MD Attending Provider Active Split Leather Mosser Relationship Specialty Start Date End Date José Luis Roberts MD [address] [place] [address] PCP - General Family Medicine 05/18/23 Adelaida Carrion NP [address] [place] [address] Referring Physician Nurse Practitioner 10/14/22 Split Leather Mosser Relationship Specialty Start Date End Date José Luis Roberts MD [address] [place] [phone] PCP - General Family Medicine 05/18/23 Adelaida Carrion NP [address] [place] [address] Referring Physician Nurse Practitioner 10/14/22 Split [employer]ather Mosser Relationship Specialty Start Date End Date José Luis Roberts MD [address] [place] [phone] PCP - General Family Medicine 05/18/23 Adelaida Carrion NP [address] [place] [address] Referring Physician Nurse Practitioner 10/14/22 Split Leather Mosser Relationship Specialty Start Date End Date José Luis Roberts MD [address] [place] [phone] PCP - General Family Medicine 05/18/23 Adelaida Carrion NP Referring Physician Nurse Practitioner 10/14/22 Miriam Suarez DO [address] [place], [place] [id number] Referring Physician Neurology 06/29/23 Diaan De Leon LPN Licensed Practical Nurse Family Medicine 12/18/23 Split Leather Mosser Relationship Specialty Start Date End Date José Luis Roberts MD [address] [place] [address] PCP - General Family Medicine 05/18/23 Adelaida Carrion NP Referring Physician Nurse Practitioner 10/14/22 Miriam Saurez DO [address] [place], [place] [id number] Referring Physician Neurology 06/29/23 [place] LPN Licensed Practical Nurse Family Medicine 12/18/23 Split Leather Mosser Relationship Specialty Start Date End Date Unallocated, Familias MD Mariela [address] [place] [address] PCP - General Family Medicine 01/27/24 Miriam Suarez DO [address] [place] [address] Referring Physician Neurology 06/29/23 [place] LPN Licensed Practical Nurse Family Medicine 12/18/23 Adelaida Carrion NP [address] [place] [address] Nurse Practitioner Family Medicine 01/27/24 Split Leather Mosser Relationship Specialty Start Date End Date Unallocated, Noms MD [place] [address] PCP - General Family Medicine 01/27/24 Miriam Suarez DO [address] [place] [address] Referring Physician Neurology 06/29/23 [place] LPN Licensed Practical Nurse Family Medicine 12/18/23 Adelaida Carrion, BRIANA [address] [place] [address] Nurse Practitioner Family Medicine 01/27/24 Split Leather Mosser Relationship Specialty Start Date End Date José Luis Roberts MD [address] [place] [phone] PCP - General Family Medicine 02/02/24 Miriam Suarez DO [address] [place] [address] Referring Physician Neurology 06/29/23 [place] LPN Licensed Practical Nurse Family Medicine 12/18/23 Adelaida Carrion, BRIANA [address] [place] [address] Nurse Practitioner Family Medicine 01/27/24 Split Leather Mosser Relationship Specialty Start Date End Date José Luis Roberts MD [address] [place] [address] PCP - General Family Medicine 02/02/24 Miriam Suarez DO [address] [place] [address] Referring Physician Neurology 06/29/23 Adelaida Carrion NP [address] [place] [address] Nurse Practitioner Family Medicine 01/27/24 Bong Rosado MA Family Medicine 02/12/24 Split Leather Mosser Relationship Specialty Start Date End Date José Luis Roberts MD [address] [place] [address] PCP - General Family Medicine 02/02/24 Miriam Suarez DO [address] [place] [id number] Referring Physician Neurology 06/29/23 Adelaida Carrion NP [address] [place] [address] Nurse Practitioner Family Medicine 01/27/24 Bong Rosado MA Family Medicine 02/12/24 Split Leather Mosser Relationship Specialty Start Date End Date José Luis Roberts MD [address] [place] [address] PCP - General Family Medicine 02/02/24 Miriam Suarez DO [address] [place] [address] Referring Physician Neurology 06/29/23 Adelaida Carrion NP [address] [place] [address] Nurse Practitioner Family Medicine 01/27/24 Bong Rosado MA [facility] 02/12/24 Split Leather Mosser Relationship Specialty Start Date End Date José Luis Roberts MD [address] [place] [address] PCP - General Family Medicine 02/02/24 Miriam Suarez DO [address] [place] [address] Referring Physician Neurology 06/29/23 Adelaida Carrion NP [address] [place] [address] Nurse Practitioner Family Medicine 01/27/24 Bong Rosado MA [facility] 02/12/24 Split Leather Mosser Relationship Specialty Start Date End Date José Luis Roberts MD [address] [place] [phone] PCP - General Family Medicine 02/02/24 Miriam Suarez DO [address] [place] [address] Referring Physician Neurology 06/29/23 Adelaida Carrion NP [address] [place] [address] Nurse Practitioner Family Medicine 01/27/24 Bong Rosado MA [facility] 02/12/24 REASON FOR VISIT (unrecogniz ed section and [...] BE BASED ON THE PRIMARY CLINICAL RECORDS. [facility]. provides no warranty or guarantee of the accuracy or completeness of information in this document.
--- NOTE | 2024-03-02 02:27 | CT_ITS ---
The [address] [address] Patient Name: MICHELLE BE MRN: [id number] date: 1960 Sex: F Assigned Patient Location: ER Current Patient Location: ER Accession/Order Number: [id number] Exam Date: 03/02/2024 02:40 Report Date: 03/02/2024 03:53 At the request of: RICHA CLAY Procedure: CT head/brain wo con EXAM: CT head/brain wo con HISTORY: Altered mental status. COMPARISON: CT head from 08/24/2023. TECHNIQUE: Axial images of the brain were obtained from the skull base to the vertex without contrast enhancement. Sagittal and coronal reformations were provided. FINDINGS: Prominence of the sulci and extra-axial CSF spaces compatible with underlying volume loss. No acute intracranial hemorrhage, space-occupying lesion, significant mass effect or midline shift is demonstrated. There is no evidence of hydrocephalus. A small remote left thalamic lacunar infarction is noted. No CT evidence of an acute ischemic event. Vascular calcifications are seen along the course of the carotid siphon. The visualized paranasal sinuses and mastoids are well-aerated. CT/CT head/brain wo con IMPRESSION: No CT evidence of an acute intracranial process or significant change in the appearance the brain. Electronically authenticated by: MADDI NAIR Date: 03/02/2024 03:53
--- NOTE | 2024-03-02 02:28 | XR_ITS ---
The [address] [address] Patient Name: MICHELLE BE MRN: [id number] date: 1960 Sex: F Assigned Patient Location: ER Current Patient Location: ER Accession/Order Number: [id number] Exam Date: 03/02/2024 02:40 Report Date: 03/02/2024 04:43 At the request of: RICHA MARKER Procedure: XR chest 1V EXAMINATION: XR chest 1V HISTORY: AMS COMPARISON: XR chest 08/24/2023 FINDINGS: LUNGS: No significant pulmonary parenchymal abnormalities. VASCULATURE: No increased pulmonary vasculature. PLEURA: No pneumothorax, effusion, or pleural thickening. CARDIAC: No cardiomegaly or cardiac silhouette abnormality. MEDIASTINUM: No visible mass or adenopathy. BONES: No fracture or visible bone lesion. OTHER: Negative. XR/XR chest 1V IMPRESSION: 1. Low lung volume examination. 2. No acute cardiopulmonary process. Electronically authenticated by: KINGSLEY CLEMENTS Date: 03/02/2024 04:43
--- NOTE | 2024-03-02 02:30 | ED_ITS ---
HPI - Altered Mental Status General Chief Complaint: Altered Mental Status Stated Complaint: ALTERED MENTAL Time Seen by Provider: 03/02/24 02:11 Source: family Mode of arrival: Wheelchair Limitations: altered mental status History of Present Illness HPI narrative: This 63-year-old female with a history of a CVA in the past who was also flown to [facility] on 08/24/2023 for a possible stroke after she collapsed at home and was poorly responsive but was ultimately not found to have a stroke and was thought to possibly have taken too much medication ( and had her Neurontin dosing decreased) is brought to the emergency department by her for altered mental status. He states that around midnight she started pacing around the house and was acting strange and very quiet. She was recently seen by her neurologist at [facility]. does not think any new medications were prescribed at that time. The patient manages her own medications. The patient's states that she took her medications earlier in the evening. She takes them twice a day. He states that she has been confused since midnight. She has not had any recent falls. She has not had any cough. She has chronic nasal congestion which is unchanged. The patient went to the bathroom and spent a great deal of time in the bathroom prior to the patient's convincing her to get up and come to the emergency department. In the emergency department she is awake and can follow some commands but otherwise answers questions as her name and date of . Related Data Home Medications ?Medication ?Instructions ?Recorded ?Confirmed amlodipine 10 mg tablet (Norvasc) 10 mg PO DAILY 09/10/22 03/02/24 biotin 1 mg capsule 5 mg PO DAILY 09/10/22 03/02/24 cariprazine 4.5 mg capsule 4.5 mg PO Q24H 09/10/22 03/02/24 (Vraylar) cetirizine 10 mg tablet (24Hour 10 mg PO DAILY PRN allergy symptoms 09/10/22 03/02/24 Allergy) clonazepam 1 mg tablet 1 mg PO Q12H 09/10/22 03/02/24 duloxetine 60 mg capsule,delayed 60 mg PO BID 09/10/22 03/02/24 release ferrous sulfate 325 mg (65 mg 325 mg PO BID 09/10/22 03/02/24 iron) tablet (FeroSul) losartan 50 mg tablet (Cozaar) 100 mg PO DAILY 09/10/22 03/02/24 magnesium 200 mg tablet 400 mg PO QDAY 09/10/22 03/02/24 melatonin 12 mg tablet 12 mg PO .HS PRN sleep 09/10/22 03/02/24 omeprazole 20 mg capsule,delayed 20 mg PO QDAY 09/10/22 03/02/24 release ropinirole 4 mg tablet 4 mg PO QDAY 09/10/22 03/02/24 trazodone 150 mg tablet 150 mg PO .HS 09/10/22 03/02/24 fluticasone propionate 50 1 spray intranasal DAILY PRN 10/20/23 03/02/24 mcg/actuation nasal allergy symptoms spray,suspension (Flonase Allergy Relief) spironolactone 50 mg tablet 50 mg PO DAILY 10/20/23 03/02/24 gabapentin 300 mg capsule 300 mg PO BID 11/03/23 03/02/24 calcium citrate 200 mg PO QID 11/04/23 03/02/24 carvedilol 12.5 mg tablet 12.5 mg PO Q12H 11/04/23 03/02/24 multivitamin 1 tab PO DAILY 11/04/23 03/02/24 Previous Rx's ?Medication ?Instructions ?Recorded tizanidine 2 mg tablet 2 mg PO TID PRN muscle spasticity 10/01/23 #90 tabs Allergies Allergy/AdvReac Type Severity Reaction Status Date / Time levetiracetam (From Keppra) Allergy Severe Unknown Verified 03/02/24 02:13 adhesive Allergy Intermediate Blister Verified 03/02/24 02:13 Penicillins Allergy Intermediate Unknown Verified 03/02/24 02:13 tetracycline Allergy Intermediate Unknown Verified 03/02/24 02:13 eszopiclone (From Lunesta) Allergy Unknown Verified 03/02/24 02:13 milnacipran (From Savella) AdvReac Intermediate Agitated Verified 03/02/24 02:13 prochlorperazine (From AdvReac Intermediate Agitated Verified 03/02/24 02:13 Compazine) Review of Systems ROS Status of ROS 10 or more systems reviewed and unremark able except as noted in history and below PFSH PFSH Medical History FH: bariatric surgery ?Z84.89 - Family history of other specified conditions (ICD-10) Upper back pain ?M54.9 - Dorsalgia, unspecified (ICD-10) Osteoarthritis ?M19.90 - Unspecified osteoarthritis, unspecified site (ICD-10) Neck pain ?M54.2 - Cervicalgia (ICD-10) Low back pain ?M54.50 - Low back pain, unspecified (ICD-10) Fibromyalgia ?M79.7 - Fibromyalgia (ICD-10) Bipolar 1 disorder ?F31.9 - Bipolar disorder, unspecified (ICD-10) Acid reflux ?K21.9 - Gastro-esophageal reflux disease without esophagitis (ICD-10) Obesity ?E66.9 - Obesity, unspecified (ICD-10) Sleep apnea ?G47.30 - Sleep apnea, unspecified (ICD-10) Heart murmur ?R01.1 - Cardiac murmur, unspecified (ICD-10) High cholesterol ?E78.00 - Pure hypercholesterolemia, unspecified (ICD-10) Hypertension ?I10 - Essential (primary) hypertension (ICD-10) Surgical History S/P dilatation and curettage ?Z98.890 - Other specified postprocedural states (ICD-10) H/O breast biopsy ?Z98.890 - Other specified postprocedural states (ICD-10) S/P ORIF (open reduction internal fixation) fracture ?Z98.890 - Other specified postprocedural states (ICD-10) ?Z87.81 - Personal history of (healed) traumatic fracture (ICD-10) Hx of laparoscopic gastric banding ?Z98.84 - Bariatric surgery status (ICD-10) History of tonsillectomy and adenoidectomy ?Z90.89 - Acquired absence of other organs (ICD-10) History of appendectomy ?Z90.49 - Acquired absence of other specified parts of digestive tract (ICD- 10) History of hemilaminectomy ?Z98.890 - Other specified postprocedural states (ICD-10) History of cholecystectomy ?Z90.49 - Acquired absence of other specified parts of digestive tract (ICD-10) Previous section ?Z98.891 - History of uterine scar from previous surgery (ICD-10) Social History Smoking status: Former smoker Little interest or pleasure in doing things: not at all Feeling down, depressed, or hopeless: not at all Exam Narrative Exam Narrative: Vital signs and Nursing Notes reviewed: Patient is afebrile with a normal pulse, she is not hypoxic with pulse ox of 96% on room air General: Awake, alert but disoriented. Patient can say her name and date of but otherwise does not answer questions appropriately HEENT: Normocephalic atraumatic, mucous membranes are moist and pink, eyes are clear, normal conjunctiva Neck: Supple, no meningeal signs, no anterior or posterior cervical lymphadenopathy Chest: Lungs are clear to auscultation with good air entry, there is no wheezing rhonchi or rales appreciated no accessory muscle use, patient is speaking in complete sentences-no chest wall tenderness to palpation CVS: Regular rate and rhythm S1-S2, no murmurs rubs or gallops, pulses are brisk and equal bilaterally ABD: Obese, Soft, nondistended, nontender, no rebound guarding or rigidity, bowel sounds are normal, no pulsatile masses appreciated Extremities: Moving all extremities, no lower extremity tenderness or swelling noted, negative Homans' sign, pulses are brisk and equal bilaterally Skin: Normal in appearance without rash,pallor, petechiae or purpura Neuro: Patient is awake but otherwise not oriented to place or time. Director Title strength is intact, she is able to pull herself to a sitting position. Lower extremity strength and sensation is intact. There is no facial droop, tongue is midline. She is unable to perform pronator drift testing-she is able to raise her arms up but then slowly lowers them back down despite the instructions. Constitutional Vital Signs, click to edit/add: Last Vital Signs Temp 98.8 F 03/02/24 02:15 Pulse 107 H 03/02/24 06:20 Resp 10 L 03/02/24 06:10 BP 154/98 H 03/02/24 05:31 Pulse Ox 97 03/02/24 05:50 O2 Del Method Room Air 03/02/24 02:15 Course Vital Signs Vital signs: Vital Signs Pulse Oximetry 98 03/02/24 02:11 Temperature 98.8 F 03/02/24 02:15 Pulse Rate 107 H 03/02/24 06:20 Respiratory Rate 10 L 03/02/24 06:10 Blood Pressure 154/98 H 03/02/24 05:31 Pulse Oximetry 97 03/02/24 05:50 Oxygen Delivery Method Room Air 03/02/24 02:15 MDM - Altered Mental Status MDM Narrative Medical decision making narrative: This 63-year-old female with multiple medical problems who is on multiple medications and has had a stroke in the past is brought to the emergency department by her . The states that around midnight she started pacing around the house and repeating herself over and over. He was ultimately able to get her to get into the car and come to the emergency department after she spent about half an hour in the bathroom. The patient's states that she takes care of her own medications. He is not certain if she may have taken additional doses of medications earlier in the evening. Her appetite has been normal. She has not had a fever. She has not had any recent falls. She r ecently had a follow-up appointment with her neurologist at [facility] when everything was deemed normal and she was not placed on any new medications. In the emergency department she was perseverating and repeated her name when asked multiple questions however besides that her neuroexam was fairly normal. Her speech is clear, there was no facial droop. When I asked her to raise her arms for pronator drift testing she raised her arms right up over her head but then could not follow the commands to do the pronator drift testing. She pulled herself to a seated position when asked to so I could listen to her lungs. She has normal strength and sensation in her lower extremities. EKG done upon arrival was a sinus rhythm with a right bundle branch block and no acute changes. CT scan of the brain was ordered to rule out stroke and was reviewed by radiology with no acute findings. Routine labs were ordered. She has a normal white count and hemoglobin. Electrolytes are normal. Troponin is normal. Sed rate is normal. ESR is normal. Liver function tests are normal. Ammonia is normal. TSH is normal. Alcohol testing was negative, urine toxicity is negative. Chest x-ray was read by radiology and shows no acute findings. A Michelle was placed for urinalysis and urine is negative for infection. After the initial exam the patient fell asleep. The patient's now s tates that he thinks that she may be suffering from exhaustion as they are his son and 2-1/2-year-old grandson live with them and the patient helps to care for the grandson and rarely gets to sleep. Patient slept and I then tried to arouse her. She was difficult to arouse but was ultimately aroused with some sternal rubbing. She woke up and had some roving eye movements. She gradually started moving all of her extremities and is rubbing her hair but is still not following commands. She does make eye contact at times and is able to say her name but is otherwise not following commands however she is readjusting herself on the bed and able to push herself up on the bed as she had slipped down and her feet were somewhat hanging off the end of the bed. The case was discussed with the hospitalist who is concerned that she may be having subclinical seizures and suggest that she be transferred where she can be evaluated by neurology. Case was discussed with Dr Mendez, [facility] who has accepted the patient for transfer. In the meantime she was given a dose of Ativan as she is now more awake and fidgeting. Her states this was similar to her presentation before when she was evaluated at [facility] for stroke. She was also on Keppra in the past as it is on her allergy list so she may have had seizure-like activity in the past that has not been further evaluated by neurology. Medical Records Attestation: I reviewed the patient's medical records. Medical records narrative: The [address] [address] XRay Report Signed Patient: MICHELLE BE MR#: [id number] : 1960 Acct:[id number] Age/Sex: 63 / F ADM Date: 03/02/24 Loc: ER Attending Dr: Ordering Physician: Rochelle Keene Date of Service: 03/02/24 Procedure(s): XR chest 1V Accession Number(s): [id number] cc: Adelaida Carrion NP; Rochelle Keene~ The [address] [id number] Patient Name: MICHELLE BE MRN: [facility]:[id number] date: 1960 Sex: F Assigned Patient Location: ER Current Patient Location: ER Accession/Order Number: [id number] Exam Date: 03/02/2024 02:40 Report Date: 03/02/2024 04:43 At the request of: ROCHELLE MARKER Procedure: XR chest 1V EXAMINATION: XR chest 1V HISTORY: AMS COMPARISON: XR chest 08/24/2023 FINDINGS: LUNGS: No significant pulmonary parenchymal abnormalities. VASCULATURE: No increased pulmonary vasculature. PLEURA: No pneumothorax, effusion, or pleural thickening. CARDIAC: No cardiomegaly or cardiac silhouette abnormality. MEDIASTINUM: No visible mass or adenopathy. BONES: No fracture or visible bone lesion. OTHER: Negative. XR/XR chest 1V IMPRESSION: 1. Low lung volume examination. 2. No acute cardiopulmonary process. Lab Data Labs: Lab Results 03/02/24 03/02/24 03/02/24 Range/Units 02:30 02:39 03:20 WBC 9.9 (4.0-11.0) 10^3/uL RBC 4.78 (4.20-5.40) 10^6/uL Hgb 13.9 (12.0-16.0) g/dL Hct 41.5 (36.0-48.0) % MCV 86.8 (81.0-99.0) fL MCH 29.1 (26.7-34.0) pg MCHC 33.5 (29.9-35.2) g/dL RDW 13.2 (11.0-15.0) % Plt Count 261 (150-450) 10^3/uL MPV 11.5 (9.5-13.5) fL Neut % (Auto) 70.3 (43.0-75.0) % Lymph % (Auto) 20.3 L (20.5-60.0) % [place] % (Auto) 7.0 (1.7-12.0) % Eos % (Auto) 1.4 (0.9-7.0) % Baso % (Auto) 0.6 (0.2-2.0) % Neut # (Auto) 6.9 H (1.4-6.5) 10^3/uL Lymph # (Auto) 2.0 (1.2-3.8) 10^3/uL [place] # (Auto) 0.7 (0.3-0.8) 10^3/uL Eos # (Auto) 0.1 (0.0-0.7) 10^3/uL Baso # (Auto) 0.1 (0.0-0.1) 10^3/uL Abs Immat Gran (auto) 0.04 H (0.00-0.03) 10^3/uL Imm/Tot Granulo (auto) 0.4 (0.0-0.5) % ESR 15 (<=30) mm/hr PT 10.6 (9.0-11.6) sec INR 1.00 Puncture Site ABG pH (7.350-7.450) ABG pCO2 (35.0-45.0) mmHg ABG pO2 (80.0-100.0) mmHg ABG HCO3 (22.0-26.0) mmol/L ABG O2 Saturation % ABG Base Excess (-2.0-2.0) mmol/L Conner Test (POSITIVE) VBG pH 7.387 (7.330-7.430) VBG pCO2 39.8 L (40.0-52.0) mmHg Sodium 142 (136-145) mmol/L Potassium 5.0 (3.5-5.1) mmol/L Chloride 105 (98-107) mmol/L Carbon Dioxide 22.3 (21.0-32.0) mmol/L Anion Gap 19.7 BUN 22.0 H (7.0-18.0) mg/dL Creatinine 1.20 H (0.55-1.02) mg/dL Est GFR ( Amer) 55 L (>=60 mL/min/1.73m^2) Est GFR (Non-Af Amer) 46 L (>=60 mL/min/1.73m^2) BUN/Creatinine Ratio 18.3 Glucose 112 H (74-106) mg/dL Lactate 0.8 (0.4-2.0) mmol/L Calcium 9.5 (8.5-10.1) mg/dL Total Bilirubin 0.4 (0.2-1.0) mg/dL AST 26 (15-37) U/L ALT 24 (14-59) U/L Alkaline Phosphatase 94 (46-116) U/L Ammonia <10 L (11-32) umol/L Troponin I High Sens 5.2 (4.0-51.3) pg/mL C-Reactive Protein 0.78 H (<=0.50) mg/dL Total Protein 8.0 (6.4-8.2) g/dL Albumin 4.1 (3.4-5.0) g/dL Globulin 3.9 g/dL Albumin/Globulin Ratio 1.1 TSH 1.944 (0.358-3.740) uIU/mL Urine Color (YELLOW) Urine Clarity (CLEAR) Urine pH (5.0-9.0) Ur Specific [place] (1.005-1.025) Urine Protein (NEG/TRACE) mg/dL Urine Glucose (UA) (NEGATIVE) mg/dL Urine Ketones (NEGATIVE) mg/dL Urine Occult Blood (NEGATIVE) Urine Nitrite (NEGATIVE) Urine Bilirubin (NEGATIVE) Urine Urobilinogen (0.2-1.0) EU/dL Ur Leukocyte Esterase (NEGATIVE) Urine RBC (0-2) #/HPF Urine WBC (NONE SEEN) #/HPF Ur Squamous Epith Cells (NONE/RARE) #/LPF Urine Crystals (None Seen) #/HPF Urine Bacteria (NONE SEEN) #/HPF Urine Casts (NONE SEEN) #/LPF Urine Mucus (NONE SEEN) Urine Opiates Screen (NEGATIVE) Ur Buprenorphine Scrn (NEGATIVE) Ur Oxycodone Screen (NEGATIVE) Urine Methadone Screen (NEGATIVE) Acetaminophen <2.0 L (10.0-30.0) ug/mL Ur Barbiturates Screen (NEGATIVE) U Tricyclic Antidepress (NEGATIVE) Ur Phencyclidine Scrn (NEGATIVE) Ur Amphetamines Screen (NEGATIVE) U Methamphetamines Scrn (NEGATIVE) U Benzodiazepines Scrn (NEGATIVE) Urine Cocaine Screen (NEGATIVE) U Cannabinoids Screen (NEGATIVE) Ethanol Quant <3 mg/dL POC Glucose 107 H (74-106) mg/dL 03/02/24 03/02/24 Range/Units 04:46 05:42 WBC (4.0-11.0) 10^3/uL RBC (4.20-5.40) 10^6/uL Hgb (12.0-16.0) g/dL Hct (36.0-48.0) % MCV (81.0-99.0) fL MCH (26.7-34.0) pg MCHC (29.9-35.2) g/dL RDW (11.0-15.0) % Plt Count (150-450) 10^3/uL MPV (9.5-13.5) fL Neut % (Auto) (43.0-75.0) % Lymph % (Auto) (20.5-60.0) % [place] % (Auto) (1.7-12.0) % Eos % (Auto) (0.9-7.0) % Baso % (Auto) (0.2-2.0) % Neut # (Auto) (1.4-6.5) 10^3/uL Lymph # (Auto) (1.2-3.8) 10^3/uL [place] # (Auto) (0.3-0.8) 10^3/uL Eos # (Auto) (0.0-0.7) 10^3/uL Baso # (Auto) (0.0-0.1) 10^3/uL Abs Immat Gran (auto) (0.00-0.03) 10^3/uL Imm/Tot Granulo (auto) (0.0-0.5) % ESR (<=30) mm/hr PT (9.0-11.6) sec INR Puncture Site Lr ABG pH 7.384 (7.350-7.450) ABG pCO2 39.7 (35.0-45.0) mmHg ABG pO2 73.3 L (80.0-100.0) mmHg ABG HCO3 23.7 (22.0-26.0) mmol/L ABG O2 Saturation 93.0 % ABG Base Excess -1.4 (-2.0-2.0) mmol/L Conner Test Positive (POSITIVE) VBG pH (7.330-7.430) VBG pCO2 (40.0-52.0) mmHg Sodium (136-145) mmol/L Potassium (3.5-5.1) mmol/L Chloride (98-107) mmol/L Carbon Dioxide (21.0-32.0) mmol/L Anion Gap BUN (7.0-18.0) mg/dL Creatinine (0.55-1.02) mg/dL Est GFR ( Amer) (>=60 mL/min/1.73m^2) Est GFR (Non-Af Amer) (>=60 mL/min/1.73m^2) BUN/Creatinine Ratio Glucose (74-106) mg/dL Lactate (0.4-2.0) mmol/L Calcium (8.5-10.1) mg/dL Total Bilirubin (0.2-1.0) mg/dL AST (15-37) U/L ALT (14-59) U/L Alkaline Phosphatase (46-116) U/L Ammonia (11-32) umol/L Troponin I High Sens (4.0-51.3) pg/mL C-Reactive Protein (<=0.50) mg/dL Total Protein (6.4-8.2) g/dL Albumin (3.4-5.0) g/dL Globulin g/dL Albumin/Globulin Ratio TSH (0.358-3.740) uIU/mL Urine Color Lt. yellow (YELLOW) Urine Clarity Clear (CLEAR) Urine pH 6.0 (5.0-9.0) Ur Specific [place] 1.010 (1.005-1.025) Urine Protein Negative (NEG/TRACE) mg/dL Urine Glucose (UA) Negative (NEGATIVE) mg/dL Urine Ketones Negative (NEGATIVE) mg/dL Urine Occult Blood Negative (NEGATIVE) Urine Nitrite Negative (NEGATIVE) Urine Bilirubin Negative (NEGATIVE) Urine Urobilinogen 0.2 (0.2-1.0) EU/dL Ur Leukocyte Esterase Negative (NEGATIVE) Urine RBC None seen (0-2) #/HPF Urine WBC 0-2 A (NONE SEEN) #/HPF Ur Squamous Epith Cells Rare (NONE/RARE) #/LPF Urine Crystals None seen (None Seen) #/HPF Urine Bacteria Trace A (NONE SEEN) #/HPF Urine Casts None seen (NONE SEEN) #/LPF Urine Mucus None seen (NONE SEEN) Urine Opiates Screen Negative (NEGATIVE) Ur Buprenorphine Scrn Negative (NEGATIVE) Ur Oxycodone Screen Negative (NEGATIVE) Urine Methadone Screen Negative (NEGATIVE) Acetaminophen (10.0-30.0) ug/mL Ur Barbiturates Screen Negative (NEGATIVE) U Tricyclic Antidepress Negative (NEGATIVE) Ur Phencyclidine Scrn Negative (NEGATIVE) Ur Amphetamines Screen Negative (NEGATIVE) U Methamphetamines Scrn Negative (NEGATIVE) U Benzodiazepines Scrn Negative (NEGATIVE) Urine Cocaine Screen Negative (NEGATIVE) U Cannabinoids Screen Negative (NEGATIVE) Ethanol Quant mg/dL POC Glucose (74-106) mg/dL ECG Data Attestation: I personally reviewed and interpreted this ECG as follows: (Sinus rhythm at 77 bpm, right bundle branch block, nonspecific ST changes, no acute ST segment elevation or T wave inversion) Discharge Plan Discharge Chief Complaint: Altered Mental Status Clinical Impression: Acute alteration in mental status Patient Disposition: [facility] Time of Disposition Decision: 06:53 Condition: Fair Prescriptions / Home Meds: No Action clonazepam 1 mg tablet 1 mg PO Q12H omeprazole 20 mg capsule,delayed release(DR/EC) 20 mg PO QDAY ropinirole 4 mg tablet 4 mg PO QDAY duloxetine 60 mg capsule,delayed release(DR/EC) 60 mg PO BID Vraylar 4.5 mg capsule 4.5 mg PO Q24H biotin 1 mg capsule 5 mg PO DAILY ferrous sulfate [FeroSul] 325 mg (65 mg iron) tablet 325 mg PO BID losartan [Cozaar] 50 mg tablet 100 mg PO DAILY magnesium 200 mg tablet 400 mg PO QDAY melatonin 12 mg tablet 12 mg PO .HS PRN (Reason: sleep) amlodipine [Norvasc] 10 mg tablet 10 mg PO DAILY cetirizine [24Hour Allergy] 10 mg tablet 10 mg PO DAILY PRN (Reason: allergy symptoms) trazodone 150 mg tablet 150 mg PO .HS tizanidine 2 mg tablet 2 mg PO TID PRN (Reason: muscle spasticity) Qty: 90 2RF gabapentin 300 mg capsule 300 mg PO BID carvedilol 12.5 mg tablet 12.5 mg PO Q12H calcium citrate 200 mg (950 mg) tablet 200 mg PO QID multivitamin Tablet 1 tab PO DAILY fluticasone propionate [Flonase Allergy Relief] 50 mcg/actuation spray,suspension 1 spray intranasal DAILY PRN (Reason: allergy symptoms) Rx Instructions: administer into each nostril spironolactone 50 mg tablet 50 mg PO DAILY Print Language: Comoran Referrals: Adelaida Carrion, PLASTIC EXTRUDING MACHINE OPERATOR [Primary Care Provider] - 1 week
[2024-03-02 02:40] LABS: Glucometer 107 mg/dL (74-106)
[2024-03-02 02:44] LABS: PCO2 VBG 39.8 mmHg (40.0-52.0); pH VBG 7.387 (7.330-7.430)
[2024-03-02 02:47] LABS: Basophils Absolute Auto 0.1 10^3/uL (0.0-0.1); Basophils Percent Auto 0.6 % (0.2-2.0); Eosinophils Absolute Auto 0.1 10^3/uL (0.0-0.7); Eosinophils Percent Auto 1.4 % (0.9-7.0); Hematocrit 41.5 % (36.0-48.0); Hemoglobin 13.9 g/dL (12.0-16.0); Immature Granulocytes Abs Auto 0.04 10^3/uL (0.00-0.03); Immature Granulocytes Pct Auto 0.4 % (0.0-0.5); Lymphocytes Percent Auto 20.3 % (20.5-60.0); Mean Corpuscular HGB Conc 33.5 g/dL (29.9-35.2); Mean Corpuscular Hemoglobin 29.1 pg (26.7-34.0); Mean Corpuscular Volume 86.8 fL (81.0-99.0); Mean Platelet Volume 11.5 fL (9.5-13.5); Monocytes Absolute Auto 0.7 10^3/uL (0.3-0.8); Neutrophils Absolute Auto 6.9 10^3/uL (1.4-6.5); Neutrophils Percent Auto 70.3 % (43.0-75.0); Platelet Count 261 10^3/uL (150-450); Red Blood Count 4.78 10^6/uL (4.20-5.40); Red Cell Distribution Width 13.2 % (11.0-15.0); White Blood Count 9.9 10^3/uL (4.0-11.0)
[2024-03-02 02:53] LABS: Erythrocyte Sedimentation Rate 15 mm/hr (<=30)
[2024-03-02 03:00] LABS: Prothrombin Time 10.6 sec (9.0-11.6)
[2024-03-02 03:05] LABS: Lactate/Lactic Acid 0.8 mmol/L (0.4-2.0)
[2024-03-02 03:10] LABS: C Reactive Protein 0.78 mg/dL (<=0.50); Thyroid Stimulating Hormone 1.944 uIU/mL (0.358-3.740); Troponin I High Sensitivity 5.2 pg/mL (4.0-51.3)
[2024-03-02 03:16] LABS: Acetaminophen <2.0 ug/mL (10.0-30.0)
[2024-03-02 03:21] LABS: Ethanol <3 mg/dL
[2024-03-02] MEDS: 0.9 % SODIUM CHLORIDE 1,000 ML 1000 ML IV (03:31)
[2024-03-02 03:40] LABS: Ammonia <10 umol/L (11-32)
--- NOTE | 2024-03-02 03:40 | ECG_ITS ---
[facility] Test Date: 2024-03-02 Pat Name: MICHELLE BE Department: Room: - Gender: Female Project Planner: : 1960 Requested By: EDUAR MOYER Order Number: [id number] Reading MD: DANII BRODY Measurements Intervals [place] Rate: 77 P: 63 LA: 154 QRS: 86 QRSD: 128 T: 48 QT: 394 QTc: 426 Interpretive Statements 1100 Sinus rhythm 2450 Right bundle branch block 9150 abnormal ECG Compared to ECG 08/24/2023 09:26:11 Sinus arrhythmia no longer present Electronically Signed On 03-02-2024 6:57:29 EST by DANII BRODY
[2024-03-02 04:30] LABS: Alanine Aminotransferase 24 U/L (14-59); Albumin Globulin Ratio 1.1; Albumin Level 4.1 g/dL (3.4-5.0); Alkaline Phosphatase 94 U/L (46-116); Anion Gap 19.7; Aspartate Amino Transferase 26 U/L (15-37); BUN Creatinine Ratio 18.3; Bilirubin Total 0.4 mg/dL (0.2-1.0); Calcium 9.5 mg/dL (8.5-10.1); Carbon Dioxide 22.3 mmol/L (21.0-32.0); Chloride 105 mmol/L (98-107); Estimated GFR (African America 55 (>=60 mL/min/1.73m^2); Estimated GFR (Non-African Ame 46 (>=60 mL/min/1.73m^2); Globulin 3.9 g/dL; Glucose 112 mg/dL (74-106); Sodium 142 mmol/L (136-145)
[2024-03-02 04:54] LABS: Bilirubin Urine NEGATIVE (NEGATIVE); Blood Urine NEGATIVE (NEGATIVE); Clarity Urine CLEAR (CLEAR); Color Urine LT. YELLOW (YELLOW); Glucose Urine UA NEGATIVE (NEGATIVE); Ketones Urine NEGATIVE (NEGATIVE); Leukocyte Esterase Urine NEGATIVE (NEGATIVE); Nitrite Urine NEGATIVE (NEGATIVE); Protein Urine NEGATIVE (NEG/TRACE); Urobilinogen Urine 0.2 EU/dL (0.2-1.0)
[2024-03-02 05:03] LABS: Barbiturates Screen Urine NEGATIVE (NEGATIVE); Benzodiazepines Screen Urine NEGATIVE (NEGATIVE); Buprenorphine Screen Urine NEGATIVE (NEGATIVE); Cannabinoid Screen Urine NEGATIVE (NEGATIVE); Cocaine Screen Urine NEGATIVE (NEGATIVE); Methadone Screen Urine NEGATIVE (NEGATIVE); Methamphetamines Screen Urine NEGATIVE (NEGATIVE); Opiate Screen Urine NEGATIVE (NEGATIVE); Oxycodone Screen Urine NEGATIVE (NEGATIVE); Phencyclidine Screen Urine NEGATIVE (NEGATIVE); Tricyclic Antidepressant Urine NEGATIVE (NEGATIVE)
[2024-03-02 05:04] LABS: Amphetamine Screen Urine NEGATIVE (NEGATIVE)
[2024-03-02 05:09] LABS: Bacteria Urine TRACE #/HPF (NONE SEEN); Cast Seen? NONE SEEN #/LPF (NONE SEEN); Crystals Seen? None Seen #/HPF (None Seen); Mucus Urine NONE SEEN (NONE SEEN); RBC Urine NONE SEEN #/HPF (0-2); Squamous Epithelial Cell Urine RARE #/LPF (NONE/RARE); WBC Urine 0-2 #/HPF (NONE SEEN)
[2024-03-02 05:50] LABS: ABG PCO2 39.7 mmHg (35.0-45.0); pH ABG 7.384 (7.350-7.450)
[2024-03-02 05:51] LABS: Base Excess ABG -1.4 mmol/L (-2.0-2.0); HCO3 ABG 23.7 mmol/L (22.0-26.0); PO2 ABG 73.3 mmHg (80.0-100.0)
[2024-03-02 05:52] LABS: Allen Test POSITIVE (POSITIVE); O2 Mode ROOM AIR; Puncture Site LR
--- NOTE | 2024-03-02 05:57 | PC.NURSE ---
Pt will intermittently answer questions with an appropriate yes or no, but will then promptly return to an unresponsive state. Eyes will glaze over, and she will have an upward fixed gaze. She withdraw and cry out in pain while getting the ABGs drawn. states that she has not responded to him coherently.
[2024-03-02] MEDS: LORAZEPAM 2 MG/ML VIAL 1 MG IV (06:58)
--- NOTE | 2024-03-02 07:26 | PC.NURSE ---
Rests in bed with at bedside, awakens and is oriented only to self. When awake is picking at IV and monitoring cables. Respirations even and non labored. Frequent redirection given.
--- NOTE | 2024-03-02 09:40 | SUR.HOLD ---
[facility] arrives for transport.
--- NOTE | 2024-03-02 09:44 | PC.NURSE ---
Report called to JOHANN Suazo at [facility].
== END 2024-03-02 09:46 | disposition short-term general hospital (02) ==
PROVIDERS: Emergency Provider Emergency Medicine; PCP Nurse Practitioner
DX: R41.82 Altered mental status, unspecified (principal); Z86.73 Personal history of transient ischemic attack (TIA), and cerebral infarction without residual deficits; Z98.84 Bariatric surgery status; Z90.49 Acquired absence of other specified parts of digestive tract; Z87.891 Personal history of nicotine dependence; Z79.899 Other long term (current) drug therapy
CPT/HCPCS: 36415; 36600; 70450; 71045; 80053; 80307; 80320; 80329; 81001; 82140; 82800; 82805; 82948; 83605; 84443; 84484; 85025; 85610; 85652; 86140; 87040; 93005; 96361; 96374; 99285; J2060

== ENCOUNTER 2024-03-18 14:37 | Emergency (ER) | payer MEDICARE, SELFPAY ==
[2024-03-18 14:53] VITALS: BP 120/85; PULSE 70; TEMP 36.7; O2SAT 98; BMI 48.4
--- OUTSIDE RECORDS SUMMARY | 2024-03-18 14:58 | XMS_ITS | CCD ---
Author Organization [facility] Care Team Providers Care Formula Clerk Name Role Phone EBRAHEIM, SUKI Admitting Unavailable EBRAHEIM, SUKI Attending Unavailable AICHHOLZ, ADELAIDA Referring Unavailable AICHHOLZ, ADELAIDA Primary Care Unavailable [place] Procedure Practitioner Unavailab SUKI Jacob Surgeon Unavailable [place] Procedure Practitioner Unavailab CHAPARRITA Goncalves Surgeon Unavailable BRIDGETTE MACEDO Admitting Unavailable BRIDGETTE MACEDO Attending Unavailable AICHHOLZ, CHARGEBACK SPECIALIST ADELAIDA Primary Care Unavailable ZIMMER ., DR FINA Iverson Admitting Unavailable ZIMMER ., DR FINA Iverson Attending Unavailable AICHHOLZ, CHARGEBACK SPECIALIST ADELAIDA Primary Care Unavailable MCDANIEL ., ZELDA Consulting Unavailable LAKSHMIPATHY ., NARENDRANATH Consulting Paula vailable LAKSHMIPATHY ., NARENDRANATH Admitting Paula vailable LAKSHMIPATHY ., NARENDRANATH Attending Paula vailable AICHHOLZ, CHARGEBACK SPECIALIST ADELAIDA Primary Care Unavailable LAKSHMIPATHY ., NARENDRANATH Consulting Paula vailable AICHHOLZ, CHARGEBACK SPECIALIST ADELAIDA Primary Care Unavailable MARKER ., DR CHAUDHRY Admitting Unavailable MARKER ., DR CHAUDHRY Attending Unavailable MARKER ., DR CHAUDHRY Consulting Unavailable AICHHOLZ, CHARGEBACK SPECIALIST ADELAIDA Admitting Unavailable AICHHOLZ, CHARGEBACK SPECIALIST ADELAIDA Attending Unavailable AICHHOLZ, CHARGEBACK SPECIALIST ADELAIDA Primary Care Unavailable ZIMMER ., DR FINA Iverson Admitting Unavailable ZIMMER ., DR FINA Iverson Attending Unavailable AICHHOLZ, CHARGEBACK SPECIALIST ADELAIDA Primary Care Unavailable MCDANIEL ., ZELDA Consulting Unavailable ZIMMER ., DR FINA Iverson Admitting Unavailable ZIMMER ., DR FINA Iverson Attending Unavailable AICHHOLZ, CHARGEBACK SPECIALIST ADELAIDA Primary Care Unavailable MCDANIEL ., ZELDA Consulting Unavailable AICHHOLZ, CHARGEBACK SPECIALIST ADELAIDA Admitting Unavailable AICHHOLZ, CHARGEBACK SPECIALIST ADELAIDA Attending Unavailable AICHHOLZ, CHARGEBACK SPECIALIST ADELAIDA Primary Care Unavailable AICHHOLZ, CHARGEBACK SPECIALIST ADELAIDA Consulting Unavailable AICHHOLZ, CHARGEBACK SPECIALIST ADELAIDA Admitting Unavailable AICHHOLZ, CHARGEBACK SPECIALIST ADELAIDA Attending Unavailable AICHHOLZ, CHARGEBACK SPECIALIST ADELAIDA Primary Care Unavailable AICHHOLZ, CHARGEBACK SPECIALIST ADELAIDA Consulting Unavailable MISC, DR COTE Admitting Unavailable MISC, DR COTE Attending Unavailable AICHHOLZ, CHARGEBACK SPECIALIST ADELAIDA Primary Care Unavailable AICHHOLZ, CHARGEBACK SPECIALIST ADELAIDA Consulting Unavailable PRITESHC, DR COTE Consulting Unavailable STARR, DR KINGSLEY Atkins Consulting Unavailable ZIMMER ., DR FINA Iverson Admitting Unavailable ZIMMER ., DR FINA Iverson Attending Unavailable AICHOLZ, CHARGEBACK SPECIALIST ADELAIDA Primary Care Unavailable MCDANIEL ., ZELDA Consulting Unavailable ZIMMER ., DR FINA Iverson Admitting Unavailable ZIMMER ., DR FINA Iverson Attending Unavailable AICHOLZ, CHARGEBACK SPECIALIST ADELAIDA Primary Care Unavailable ZIMMER ., DR FINA Iverson Consulting Unavailable OMID LAY Consulting Unavailable ZIMMER ., DR FINA Iverson Admitting Unavailable ZIMMER ., DR FINA Iverson Attending Unavailable AICHOLZ, CHARGEBACK SPECIALIST ADELAIDA Primary Care Unavailable MCDANIEL ., ZELDA Consulting Unavailable AICHOLZ, CHARGEBACK SPECIALIST ADELAIDA Primary Care Unavailable HALKER ., ARIAN Admitting Unavailable HALKER ., ARIAN Attending Unavailable LAKSHMIPATHY ., NARENDRANATH Consulting Paula vailable HALKER ., ARIAN Consulting Unavailable LAKSHMIPATHY ., NARENDRANATH Admitting Paula vailable LAKSHMIPATHY ., NARENDRANATH Attending Paula vailable AICHOLZ, CHARGEBACK SPECIALIST ADELAIDA Primary Care Unavailable LAKSHMIPATHY ., NARENDRANATH Consulting Paula vailable AICHHOLZ, CHARGEBACK SPECIALIST ADELAIDA Admitting Unavailable AICHHOLZ, CHARGEBACK SPECIALIST ADELAIDA Attending Unavailable AICHHOLZ, CHARGEBACK SPECIALIST ADELAIDA Primary Care Unavailable AICHHOLZ, CHARGEBACK SPECIALIST ADELAIDA Consulting Unavailable BRIDGETTE MACEDO Admitting Unavailable BRIDGETTE MACEDO Attending Unavailable AICHHOLZ, CHARGEBACK SPECIALIST ADELAIDA Primary Care Unavailable DR KINGSLEY CLEMENTS Consulting Unavailable BRIDGETTE MACEDO Consulting Unavailable PURA, GILMER Admitting Unavailable GILMER NEVES Attending Unavailable PURA, GILMER Consulting Unavailable AICHHOLZ, CHARGEBACK SPECIALIST ADELAIDA Primary Care Unavailable AICHHOLZ, CHARGEBACK SPECIALIST ADELAIDA Primary Care Unavailable DR WILLI RINALDI Admitting Unavailable DEEJAY, DR WILLI Atkins Attending Unavailable DR WILLI RINALDI Consulting Unavailable AICHHOLZ, CHARGEBACK SPECIALIST ADELAIDA Primary Care Unavailable ALMAZ ., DANNY Admitting Unavailable ALMAZ ., DANNY Attending Unavailable DR KINGSLEY CLEMENTS Consulting Unavailable ALMAZ ., DANNY Consulting Unavailable LAKSHMIPATHY ., NARENDRANATH Admitting Paula vailable LAKSHMIPATHY ., NARENDRANATH Attending Paula vailable AICHHOLZ, CHARGEBACK SPECIALIST ADELAIDA Primary Care Unavailable AICHHOLZ, CHARGEBACK SPECIALIST ADELAIDA Admitting Unavailable AICHHOLZ, CHARGEBACK SPECIALIST ADELAIDA Attending Unavailable AICHHOLZ, CHARGEBACK SPECIALIST ADELAIDA Primary Care Unavailable AICHHOLZ, CHARGEBACK SPECIALIST ADELAIDA Admitting Unavailable AICHHOLZ, CHARGEBACK SPECIALIST ADELAIDA Attending Unavailable AICHHOLZ, CHARGEBACK SPECIALIST ADELAIDA Primary Care Unavailable AICHHOLZ, CHARGEBACK SPECIALIST ADELAIDA Consulting Unavailable DR KINGSLEY CLEMENTS Consulting Unavailable HALKER ., ARIAN Admitting Unavailable HALKER ., ARIAN Attending Unavailable AICHHOLZ, CHARGEBACK SPECIALIST ADELAIDA Primary Care Unavailable Aichholz, Adelaida J Primary Care Provider [phone] MD Gaudencio Monk Admit Provider MD Gaudencio Monk Attending Provider JOHANN Vieira Other Provider Unavailable JOHANN Pina Other Provider Unavailable JOHANN Hurtado Other Provider Unavailable JOHANN Crooks Other Provider Unavailable JOHANN Mejias Other Provider Unavailable JOHANN Kim Other Provider Unavailable MD Walker Pringle Other Provider ROSS Marsh Other Provider [phone] DO Jessica Murillo Other Provider MD Obdulio Bragg Other Provider DO Joon Cristina Other Provider MD Torin Robert Other Provider MD Dawn Barrera Other Provider [phone] Karlene, ANP- Mari Other Provider [phone] MD Sofi Almanzar Other Provider MD Sharad [...] José Luis Roberts MD Primary Care Provider [phone] Aichholz BUNKER WORKER, Adelaida Unavailable Daniela DO, Miriam Unavailable Diana De Leon LPN Unavailable Unavailable Unallocated , Familias Provider Primary Care Elizabeth goodson Aichholz BUNKER WORKER, Adelaida Unavailable Jamee JAIMES, Syeda King Attending Unavailable Jamee JAIMES, Syeda King Attending Unavailable José Luis Roberts MD Primary Care Provider Bong Rosado MA Unavailable Unavailable Aichholz, Adelaida J Primary Care Unavailable Jace Graham Attending Unavailable Jace Graham Admitting Unavailable Aichholz, Adelaida J Primary Care Unavailable Eduardo Monk Attending Unavailab le AleshiaEduardo medrano Admitting Unavailab le Aichholz, Adelaida J Primary Care Unavailable Delta Gan Admitting Unavailable Malinda Rosales Consulting Unavailable Rob Lake Attending Unavailable David Foster Consulting Unavailable Miriam Suarez Consulting Unavailable Kingsley Livingston Consulting Unavailable Kar Burt Consulting Unavailab Dennis Hicks Consulting Unavailable Juany Caballero Consulting Unavailable Inna Melendez Consulting Unavailable Rocio Duncan Consulting Unavailable Chuck Hinkle Consulting Unavailable SHEYLA, ADELAIDA Attending Unavailable ASHLEIGH HINES Attending Unavailable AICHHOLZ, ADELAIDA Attending Unavailable AICHHOLZ, ADELAIDA Attending Unavailable AICHHOLZ, ADELAIDA Attending Unavailable AICHHOLZ, ADELAIDA Attending Unavailable AICHHOLZ, ADELAIDA Attending Unavailable SONAM BROWN Attending Unavailable YINGHHOLZ, ADELAIDA Attending Unavailable SONAM BROWN Attending Unavailable JUANY CABALLERO Attending Unavailable AICHHOLZ, ADELAIDA Attending Unavailable AICHHOLZ, ADELAIDA Attending Unavailable AICHHOLZ, ADELAIDA Attending Unavailable AICHHOLZ, ADELAIDA Attending Unavailable JUANY LEGGETT Attending Unavailable RACHEL MITCHELL Attending Unavailable DAVID FOSTER Attending Unavailable JUANY LEGGETT Referring Unavailable AICHHOLZ, ADELAIDA Attending Unavailable Allergies Allergy Classification Reported Allergen(s) Allergy Type Date of Onset Reaction(s) Facility (7 sources) Adhesive Tape; Translations: [ADHESIVE TAPE] Propensity to adverse reactions (disorder) 04-06-19 14 rash [facility] Repository (3 sources) levETIRAcetam; Translations: [KEPPRA] Drug Allergy 07-02-19 19 [facility] Repository (3 sources) milnacipran; Translations: [SAVELLA] Drug Allergy 03-14-20 13 [facility] Repository (1 source) Penicillin; Translations: [PENICILLIN] Drug Allergy 01-16-20 18 [facility] Repository (5 sources) Prochlorperazin e; Translations: [COMPAZINE] Drug Allergy 03-14-20 13 agitation [facility] Repository (20 sources) Tetracycline; Translations: [TETRACYCLINE] Drug Allergy 04-06-19 13 Hives, Unknown [facility] Repository (4 sources) Penicillins Drug allergy (disorder) 04-06-19 13 Unknown Reaction [facility] Repository (20 sources) levETIRAcetam; Translations: [levetiracetam] Drug Allergy 12-13-19 22 Hallucinations , Other [facility] (20 sources) milnacipran; Translations: [milnacipran] Drug Allergy 12-13-19 22 hives, Hallucinations , Other, Unknown [facility] (20 sources) Prochlorperazin e; Translations: [prochlorperazi ne] Drug Allergy 12-13-19 22 Unknown, Other [facility] (2 sources) Penicillin G Drug Allergy as a child [employer] Other (2 sources) Tetracaine Drug Allergy Unknown [employer] Other (20 sources) Penicillins Drug Intolerance 12-13-19 22 Anaphylaxis [facility] (20 sources) Other Propensity to adverse reactions 12-13-19 22 Other [facility] (20 sources) Wound Dressing Adhesive Drug Allergy 09-20-19 23 Rash, Unknown [facility] (20 sources) Eszopiclone Drug Allergy 09-21-19 24 Hallucinations , Anaphylaxis [facility] (1 source) Penicillin Drug Allergy 03-02-20 [facility] Repository (1 source) Penicillins Drug allergy (disorder) 03-02-20 [facility] Repository (1 source) Tetracaine Drug Allergy 03-02-20 [facility] Repository Medications Current Medications Medication [...] Orally Active biotin 5 mg oral tablet (20 sources) biotin 5 MG tabl et Pt taking OTC ([employer]) Active biotin 1 MG caps ule Biotin [...] 2022 7:25pm Calcium Citrate / Vitamin D (20 sources) Calcium Citrate- Vitamin D (CITRACAL + D PO) Pt taking OTC ([employer]) Active Calcium Citrate- Vitamin D (CITRACAL + D PO) Citracal + D 0 Active cariprazine 3 mg oral capsule (20 sources) Atypical Antipsychotic Start: 03-10-2024 Vraylar 3 MG capsule 03/10/2024 Active Start: 09-21-2023 take 1 capsule by mo ut once daily Cariprazine HCl (Vraylar) 4.5 MG capsule Take 4.5 mg by mouth Daily 09/21/2023 Active Start: 11-17-2022 take 1 capsule by mo ut once daily Cariprazine (Vraylar) 4.5 mg capsule Active 4.5 MG PO Daily November 16, 2022 11:00pm carvedilol 12.5 mg oral tablet (20 sources) alpha-Adrenergic Jim, beta-Adrenergic Jim Start: 01-04-2024 [...] PO Daily November 16, 2022 11:00pm clonazePAM 0.5 mg oral tablet (20 sources) Benzodiazepine Start: 03-10-2024 End: 04-09-2024 take 1 tablet by mouth in the morning clonazePAM (KlonoPIN) 0.5 MG tablet Indications: Restless leg Take 1 tablet (0.5 mg) by mouth in the morning and 1 tablet (0.5 mg) before bedtime. 60 tablet 03/10/2024 04/09/2024 Active Start: 12-13-2023 End: 03-10-2024 take 1 tablet by mouth twice daily as needed for anxiety clonazePAM (KlonoPIN) 1 MG tablet Indications: Restless leg Take 1 tablet (1 mg) by mouth 2 (two) times a day as needed for anxiety Due 03/08/24 60 tablet 03/07/2024 03/10/2024 Discontinued (Reorder) Start: 11-17-2022 take 1 mg by mouth [...] tablet Orally TWICE A DAY Active fluconazole 100 mg oral tablet (20 sources) Azole Antifungal Start: 03-09-2024 fluconazole ( Diflucan) 100 MG tablet 03/09/2024 Active Start: 11-27-2023 End: 03-02-2024 fluconazole (Diflucan) 150 M G tablet Indications: Yeast infection of the skin 1 pill every 3 days for a total of 3 doses 3 tablet 1 03/02/2024 Active Start: 05-18-2023 End: 05-18-2023 fluconazole (Diflucan) [...] propionate 0.05 mg/actuat metered dose nasal spray (20 sources) Corticosteroid Start: 02-29-2024 End: 03-30-2024 take [...] (20 sources) Anti-epileptic Agent Start: 10-14-2023 End: 06-05-2024 take 1 capsule by mouth in the morning gabapentin (Neurontin) 300 MG capsule Indications: Restless leg Take 1 capsule (300 mg) by mouth in the morning and 1 capsule (300 mg) before bedtime. Due 03/11/24. 60 capsule 2 03/07/2024 06/05/2024 Active Start: 05-28-2018 End: 11-17-2022 take 1200 [...] PO Daily November 16, 2022 11:00pm Magnesium (20 sources) Magnesium 400 MG capsule Pt taking OTC([employer]) Active Magnesium 400 MG capsule magnesium 0 Active take 1 tablet by mouth once lissett y Magnesium 400 MG 1 tablet with a meal Orally Once a day Active melatonin 10 mg oral tablet (20 sources) Start: 03-23-2023 take 20 mg by [...] Active Multiple Vitamins-Minerals ( BARIATRIC MULTIVITAMINS/IRON PO) (20 sources) Multiple Vitamin s-Minerals (BARIATRIC MULTIVITAMINS/IRON PO) Pt taking OTC (amazon) Active Multiple Vitamin s-Minerals (BARIATRIC MULTIVITAMINS/IRON PO) Bariatric Multivitamins/Iron 0 Active Jmrgbzzdnaxs-Pvl-Zrqh-Fa-Vit K (Bariatric Multivitamins) 45 mg iron- 800 mcg-120 mcg Capsule (2 sources) Start: 11-17-2022 take 1 capsule by mouth once daily Slroqttprpgq-Ffo-Xruz-Fa-Vit K (Bariatric Multivitamins) 45 mg iron- 800 mcg-120 mcg Capsule Active 1 CAP PO Daily November 16, 2022 11:00pm Start: 11-17-2022 take 1 capsule by mo ut once daily Tnaxmsacuqib-Jno-Rkki-Fa-Vit K (Bariatri c Multivitamins) 45 mg iron- 800 mcg-120 mcg Capsule Active 1 CAP PO Daily November 17, 2022 12:00am nystatin [id number] unt/ml topical cream (20 sources) Polyene Antifungal Start: 03-07-2024 nystatin (M ycostatin) cream 03/07/2024 Active nystatin (Mycost atin) [id number] UNIT/GM powder Apply 1 application topically in the morning and 1 application before bedtime. Active OLANZapine 5 mg oral tablet (11 sources) Atypical Antipsychotic Start: 03-07-2024 take 0.5 tablet by mouth every six hours as needed OLANZapine (ZyPREXA) 5 MG tablet TAKE 1/2 (ONE-HALF) OF A TABLET BY MOUTH EVERY 6 HOURS NEEDED 03/07/2024 Active Start: 11-18-2022 take 5 mg by mouth e very six hours Olanzapine Active 5 MG PO Q6H 30 15 November 17, 2022 11:00pm take 1 tablet by kenyatta every six hours as needed OLANZapine zydis (ZyPREXA) 5 MG disintegrating tablet Take 5 mg by mouth every 6 (six) hours if needed. 0 Active omeprazole 20 mg delayed release oral capsule (20 sources) Proton Pump Inhibitor Start: 10-05-2023 take [...] 2022 11:00pm rOPINIRole 4 mg oral tablet (20 sources) Nonergot Dopamine Agonist Start: 10-14-2023 End: 03-02-2024 take 1 tablet by mouth at bedtime rOPINIRole (Requip) 4 MG tablet Indications: Restless leg Take 1 tablet (4 mg) by mouth at bedtime 30 tablet 3 03/02/2024 Active Start: 11-17-2022 take 4 mg by mouth once daily Ropinirole Active 4 MG PO Daily November 16, 2022 11:00pm Start: 06-02-2022 take 1 tablet by kenyatta th every two hours in the evening rOPINIRole (Requip) 4 MG tablet Take 4 mg by mouth in the evening. Take 2 hours prior to bedtime. 0 06/02/2022 Active spironolactone 25 mg oral tablet (18 sources) Aldosterone Antagonist Start: 12-30-2023 End: 01-29-2024 take 2 tablets by mouth once daily spironolactone (Aldactone) 25 MG tablet Indications: Lower extremity edema Take 2 tablets (50 mg) by mouth Daily 60 tablet 2 12/30/2023 Active sulfamethoxazole 800 mg / trimethoprim 160 mg oral tablet (19 sources) Dihydrofolate Reductase Inhibitor Antibacterial, Sulfonamide Antimicrobial Start: 01-21-2024 take 1 tablet by mouth once in the morning, then take 1 tablet by mouth once at bedtime sulfamethoxazole-tr imethoprim (Bactrim DS) 800-160 MG per tablet Take 1 tablet by mouth in the morning and 1 tablet before bedtime. 01/21/2024 Active tiZANidine 4 mg oral tablet (20 sources) Central alpha-2 Adrenergic Agonist Start: 12-12-2023 [...] sources) Corticosteroid Start: 09-17-2019 Kenalog -40 mg 13 Sep, 2019 40 mg Problems Active Problems Problem Classification Problem Date Documented Date Episodic/Chronic Acute cerebrovascular disease (20 sources) Cerebrovascular accident; Translations: [Cerebral infarction, unspecified] [...] HYPERCHOLESTEROLEMIA UNSPEC] Onset: 07-17-19 Chronic Esophageal disorders (20 sources) Gastro-esophageal reflux disease without esophagitis; Translations: [Gastroesophageal reflux disease] Onset: 07-17-19 23 05-18-2023 Chronic Essential hypertension (20 sources) Essential (primary) hypertension; Translations: [Hypertensive disorder] Onset: 07-17-19 Chronic Immunizations and screening for infectious disease (20 sources) Encounter for immunization; Translations: [Needs influenza immunization] Onset: 02-22-20 22 01-28-2024 Episodic Mood disorders (20 sources) Bipolar disorder, current episode depressed, severe, without psychotic features; Translations: [Unspecified mood [affective] disorder] Onset: 11-23-19 22 11-17-2022 Chronic Osteoarthritis (20 sources) Primary osteoarthritis, right ankle and foot; Translations: [Osteoarthritis of knee] Onset: 10-03-19 18 03-25-2023 Chronic Osteoporosis (20 sources) Osteoporosis; Translations: [Age-related osteoporosis without current pathological fracture] Onset: 05-18-19 24 05-18-2023 Chronic Other and ill-defined heart disease (20 sources) Diastolic dysfunction; Translations: [Other ill-defined heart [...] Episodic Other diseases of bladder and urethra (20 sources) Overactive bladder; Translations: [Overactive bladder] Onset: 05-18-1905-18-2023 Chronic Other gastrointestinal disorders (1 source) Bariatric surgery status; Translations: [BARIATRIC SURGERY STATUS] Onset: 08-01-19 Episodic Other hereditary and degenerative nervous system conditions (20 sources) Restless legs; Translations: [Restless legs syndrome] [...] Onset: 04-03-20 Chronic Other nervous system disorders (20 sources) Chronic pain syndrome; Translations: [Chronic pain syndrome] Onset: 05-18-19 24 05-18-2023 Chronic Other nervous system disorders (20 sources) Metabolic encephalopathy; Translations: [Metabolic encephalopathy] Onset: 08-26-19 24 12-08-2023 Chronic Other nervous system disorders (20 sources) Lesion of brain; Translations: [Disorder of brain, unspecified] Onset: 10-11-19 24 10-11-2023 Chronic Other nervous system disorders (20 sources) Carpal tunnel syndrome of right wrist; Translations: [Carpal tunnel syndrome, right upper limb] Onset: 10-11-1910-11-2023 Chronic Other nervous system disorders (20 sources) Disorder of brain; 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] Onset: 10-11-1910-11-2023 Chronic Other nervous system disorders (1 source) Encephalopathy, unspecified; Translations: [Encephalopathy, unspecified] Onset: 03-03-20 Chronic Other nervous system disorders (2 sources) Disturbance of attention; Translations: [Attention and concentration deficit] 03-14-2024 Chronic Other non-traumatic joint disorders (4 sources) [...] Onset: 03-25-2003-25-2023 Chronic Other upper respiratory disease (20 sources) Allergic rhinitis; Translations: [Allergic rhinitis, unspecified] Onset: 05-18-1905-18-2023 Chronic Paralysis (20 sources) Right hemiparesis; Translations: [Hemiplegia, unspecified affecting right dominant side] Onset: 05-18-1905-18-2023 Chronic Residual codes; unclassified (1 source) Sleep apnea, unspecified; Translations: [SLEEP APNEA UNSPECIFIED] Onset: 07-17-19 Chronic Residual codes; unclassified (20 sources) Obstructive sleep apnea syndrome; Translations: [Obstructive sleep apnea (adult) (pediatric)] Onset: 05-18-1911-18-2022 Chronic Residual codes; unclassified (1 source) Obstructive sleep apnea (adult) (pediatric); Translations: [Obstructive sleep apnea (adult)(pediatric)] 11-20-2022 Chronic Residual codes; unclassified (6 sources) Memory impairment; Translations: [Other amnesia] 03-07-2024 Episodic Residual codes; unclassified (1 source) Altered mental status, unspecified; Translations: [Altered mental status, unspecified] Onset: 03-03-20 Episodic Residual codes; unclassified (6 sources) Altered mental status; Translations: [Altered mental status, unspecified] 03-11-2024 Episodic Residual codes; unclassified (2 sources) Family history of dementia; Translations: [Family history of other mental and behavioral disorders] 03-14-2024 Episodic Spondylosis; intervertebral disc disorders; other back problems (20 sources) Spondylosis without myelopathy or radiculopathy, lumbosacral region; Translations: [Spondylosis without myelopathy or radiculopathy, lumbar region] Onset: 08-24-19 Chronic Spondylosis; intervertebral disc disorders; other back problems (3 sources) Sacrococcygeal disorders, not elsewhere classified; Translations: [Chronic back pain ] Onset: 08-24-1911-20-2022 Episodic Substance-related disorders (20 sources) Tobacco dependence syndrome; Translations: [Nicotine dependence, [...] Date Documented Da te Episodic/Chronic Abdominal hernia (20 sources) Hiatal hernia; Translations: [Diaphragmatic hernia without obstruction or gangrene] Onset: 05-18-2023 05-18-2023 Episodic Conditions associated with dizziness or vertigo (20 sources) Benign paroxysmal positional vertigo; Translations: [Benign paroxysmal vertigo, unspecified ear] Onset: 05-18-2023 05-18-2023 Episodic Deficiency and other anemia (20 sources) Anemia; Translations: [Anemia, unspecified] Onset: 05-18-2023 05-18-2023 Episodic Diabetes mellitus without complication (20 sources) Prediabetes; Translations: [Prediabetes] Onset: 07-31-2022 05-18-2023 Episodic E Codes: Cut/pierceb (1 source) Contact with scissors, initial encounter; Translations: [CONTACT WITH SCISSORS INITIAL ENC] Onset: 02-21-2022 Episodic Fracture of lower limb (20 sources) Closed fracture of patella; Translations: [Unspecified fracture of unspecified patella, initial encounter for closed fracture] Onset: 02-04-2018 Resolved: 10-21-2023 03-25-2023 Episodic Gout and other crystal arthropathies (20 sources) Gout, unspecified; Translations: [Gouty arthritis of right foot] Onset: 11-22-2021 Resolved: 08-17-2023 05-18-2023 Chronic Heart valve disorders (20 sources) Heart murmur; Translations: [Cardiac murmur, unspecified] Onset: 05-18-2023 05-18-2023 Episodic Hemorrhoids (20 sources) Hemorrhoids; Translations: [Unspecified hemorrhoids] Onset: 05-18-2023 05-18-2023 Episodic Influenza (20 sources) Influenza; Translations: [Influenza due to unidentified influenza virus with other respiratory manifestations] Onset: 07-14-2023 Resolved: 10-21-2023 10-21-2023 Episodic Malaise and fatigue (20 sources) Asthenia; Translations: [Weakness] Onset: 05-18-2023 Resolved: 05-18-2023 05-31-2018 Episodic Mood disorders (20 sources) Mood disorders; Translations: [DEPRESSION UNSPECIFIED] Onset: 04-29-2022 05-18-2023 Mycoses (20 sources) Candidiasis of skin and nail; Translations: [Candidiasis of skin] Onset: 05-18-2023 Episodic Nonmalignant breast conditions (20 sources) Hematoma of right breast; Translations: [Other specified disorders of breast] Onset: 05-18-2023 Resolved: 05-18-2023 05-18-2023 Episodic Nutritional deficiencies (20 sources) Iron deficiency; Translations: [Vitamin deficiency] Onset: 07-31-2022 07-23-2023 Episodic Open wounds of extremities (4 sources) Laceration without foreign body of left middle finger without damage to nail, initial encounter; Translations: [LAC W/O FB LT MF W/O DMG NAIL INIT] Onset: 02-20-2022 Episodic Open wounds of head; neck; and trunk (20 sources) Open wound of anterior abdominal wall ; Translations: [Unspecified open wound of abdominal wall, unspecified quadrant without penetration into peritoneal cavity, initial encounter] Onset: 05-18-2023 Resolved: 10-21-2023 05-18-2023 Episodic Other aftercare (1 source) Other chcf (current) drug therapy; Translations: [OTH PRESIDENT AND CHIEF EXECUTIVE OFFICER CURRENT DRUG THERAPY] Onset: 04-29-2022 Episodic Other and unspecified benign neoplasm (20 sources) Polyp of colon; Translations: [Polyp of [...] Onset: 12-18-2021 Episodic Other connective tissue disease (20 sources) Pain in left foot; Translations: [Pain in left foot] Onset: 03-25-2023 Resolved: 08-17-2023 03-25-2023 Episodic Other connective tissue disease (20 sources) Patellar tendonitis; Translations: [Patellar tendinitis, unspecified knee] Onset: 11-20-2016 03-25-2023 Episodic Other connective tissue disease (20 sources) Radial styloid tenosynovitis; Translations: [Radial styloid tenosynovitis [de Quervain]] Onset: 05-18-2023 05-18-2023 Episodic Other connective tissue disease (20 sources) Fibromyalgia; Translations: [Fibromyalgia] Onset: 05-18-2023 05-18-2023 Episodic Other connective tissue disease (20 sources) Tendinitis of right forearm; Translations: [Other enthesopathies, not elsewhere classified] Onset: 10-11-2023 10-11-2023 Episodic Other connective tissue disease (20 sources) Other symptoms and signs involving the musculoskeletal system; Translations: [Other musculoskeletal symptoms referable to limbs] Onset: 10-11-2023 10-11-2023 Episodic Other gastrointestinal disorders (20 sources) History of bariatric surgical procedure; Translations: [Bariatric surgery status] Onset: 05-18-2023 05-18-2023 Episodic Other gastrointestinal disorders (20 sources) Dysphagia; Translations: [Dysphagia, unspecified] Onset: 05-18-2023 05-18-2023 Episodic Other gastrointestinal disorders (20 sources) Constipation; Translations: [Constipation, unspecified] Onset: 05-18-2023 Resolved: 08-17-2023 05-18-2023 Episodic Other lower respiratory disease (20 sources) Cough; Translations: [Acute cough] Onset: 07-14-2023 Resolved: 10-21-2023 10-21-2023 Episodic Other lower respiratory disease (20 sources) Postviral cough; Translations: [Post-viral cough syndrome] Onset: 07-23-2023 Resolved: 10-21-2023 10-21-2023 Episodic Other nervous system disorders (20 sources) Slurred speech; Translations: [Slurred speech] Onset: [...] 11-20-2016 03-25-2023 Episodic Other non-traumatic joint disorders (20 sources) Hip pain; Translations: [Pain in left hip] Onset: 05-18-2023 05-18-2023 Episodic Other nutritional; endocrine; and metabolic disorders (20 sources) Excess panniculus of abdomen; Translations: [Localized [...] EDEMA] Onset: 03-19-2022 Episodic Residual codes; unclassified (20 sources) Edema of lower extremity; Translations: [Localized edema] Onset: 05-18-2023 Resolved: 10-05-2023 05-18-2023 Episodic Residual codes; unclassified (20 sources) At risk of polypharmacy; Translations: [Other specified personal risk factors, not elsewhere classified] Onset: 08-26-2023 09-21-2023 Episodic Residual codes; unclassified (20 sources) Bilateral lower limb edema; Translations: [Localized edema] Onset: 10-05-2023 10-05-2023 Episodic Respiratory failure; insufficiency; arrest (adult) (20 sources) Acute respiratory failure; Translations: [Acute respiratory failure, unspecified whether with hypoxia or hypercapnia] Onset: 08-26-2023 09-21-2023 Episodic Screening and history of mental health and substance abuse codes (20 sources) Personal history of nicotine dependence; Translations: [Ex-cigarette smoker] Onset: 07-16-2022 08-19-2023 Episodic Unclassified (1 source) LOW BACK PAIN, UNSPECIFIED; Translations: [LOW BACK PAIN, UNSPECIFIED] Onset: 06-26-2022 Viral infection (20 sources) Herpes zoster; Translations: [Zoster without complications] Onset: 05-18-2023 Resolved: 05-18-2023 05-18-2023 Episodic Results Test Name Value Interpretation Reference Range Facility Complete Blood Count Auto Di ffon 03-05-2024 Basophils (Bld) [#/Vol] 0.0 10*3/uL Normal 0.0-0.2 [facility] Comment on above: Result Comment: PERF ORMED BY: [place] [address] PATHOLOGIST NET TECHNICAL ARCHITECT ADIEL AGUSTIN M.D. Performed By: #### C BC, MG, CMP #### [address] Basophils/100 WBC (Bld) 0.5 % Normal . [facility] Comment on above: Performed By: #### C BC, MG, CMP #### [place] [address] [place] Eosinophils (Bld) [#/Vol] 0.2 10*3/uL Normal 0.0-0.45 [facility] Comment on above: Performed By: #### C BC, MG, CMP #### [address] Eosinophils/100 WBC (Bld) 2.2 % Normal . [facility] Comment on above: Performed By: #### C BC, MG, CMP #### [address] Erythrocyte distribution width (RBC) [Ratio] 14.5 % Normal 11.9-15.3 [facility] Comment on above: Performed By: #### C BC, MG, CMP #### [address] Hematocrit (Bld) [Volume fraction] 43.0 % Normal 34.0-46.4 [facility] Comment on above: Performed By: #### C BC, MG, CMP #### [place] [address] [place] Hemoglobin (Bld) [Mass/Vol] 14.3 g/dL Normal 11.8-15.4 [facility] Comment on above: Performed By: #### C BC, MG, CMP #### [address] Lymphocytes (Bld) [#/Vol] 1.8 10*3/uL Normal 1.00-4.8 [facility] Comment on above: Performed By: #### C BC, MG, CMP #### [facility] [address] [place] [address] [place] Lymphocytes/100 WBC (Bld) 18.9 % Normal . [facility] Comment on above: Performed By: #### C BC, MG, CMP #### [facility] [address] MCH (RBC) [Entitic mass] 29.0 pg Normal 24.7-34.3 [facility] Comment on above: Performed By: #### C BC, MG, CMP #### [address] MCV (RBC) [Entitic vol] 87.0 fL Normal 80-100 [facility] Comment on above: Performed By: #### C BC, MG, CMP #### [address] Mean Corpuscular HGB Conc 33.4 g/dL Normal 32.0-35.0 [facility] Comment on above: Performed By: #### C BC, MG, CMP #### [place] [address] [place] Monocytes (Bld) [#/Vol] 0.5 10*3/uL Normal 0.0-0.8 [facility] Comment on above: Performed By: #### C BC, MG, CMP #### [place] [address] [place] Monocytes/100 WBC (Bld) 5.5 % Normal . [facility] Comment on above: Performed By: #### C BC, MG, CMP #### [facility] [address] [place] [address] [place] Neutrophils (Bld) [#/Vol] 7.0 10*3/uL Normal 1.8-7.7 [facility] Comment on above: Performed By: #### C BC, MG, CMP #### [facility] [address] [place] [address] [place] Neutrophils/100 WBC (Bld) 72.9 % Normal . [facility] Comment on above: Performed By: #### C BC, MG, CMP #### [address] NRBC% 0.0 /100{WBC} Normal 0-0.5 [facility] Comment on above: Performed By: #### C BC, MG, CMP #### [address] Platelet mean volume (Bld) [Entitic vol] 8.9 fL Normal 6.3-10.7 [facility] Comment on above: Performed By: #### C BC, MG, CMP #### [address] Platelets (Bld) [#/Vol] 289 10*3/uL Normal 150-450 [facility] Comment on above: Performed By: #### C BC, MG, CMP #### [address] RBC (Bld) [#/Vol] 4.94 10*6/uL Normal 3.60-5.00 [facility] Comment on above: Performed By: #### C BC, MG, CMP #### [address] WBC (Bld) [#/Vol] 9.6 10*3/uL Normal 3.8-11.6 [facility] Comment on above: Performed By: #### C BC, MG, CMP #### [address] Comprehensive Metabolic Pane [place] 03-05-2024 Albumin [Mass/Vol] 4.4 g/dL Normal 3.5-5.7 [facility] Comment on above: Performed By: #### C BC, MG, CMP #### [address] Albumin/Globulin [Mass ratio] 1.3 {ratio} Normal [facility] Comment on above: Performed By: #### C BC, MG, CMP #### [address] ALP [Catalytic activity/Vol] 79 U/L Normal 34-104 [facility] Comment on above: Performed By: #### C BC, MG, CMP #### [address] ALT [Catalytic activity/Vol] 23 U/L Normal 7-52 [facility] Comment on above: Performed By: #### C BC, MG, CMP #### [address] Anion gap [Moles/Vol] 15.4 mmol/L High 6.0-15.0 [facility] Comment on above: Performed By: #### C BC, MG, CMP #### [address] AST [Catalytic activity/Vol] 36 U/L Normal 13-39 [facility] Comment on above: Performed By: #### C BC, MG, CMP #### [address] Bilirubin [Mass/Vol] 0.4 mg/dL Normal 0.3-1.0 [facility] Comment on above: Performed By: #### C BC, MG, CMP #### [address] Calcium [Mass/Vol] 9.5 mg/dL Normal 8.6-10.3 [facility] Comment on above: Performed By: #### C BC, MG, CMP #### [address] Chloride [Moles/Vol] 106 mmol/L Normal 98-107 [facility] Comment on above: Performed By: #### C BC, MG, CMP #### [facility] [address] [place] [address] CO2 [Moles/Vol] 23.1 mmol/L Normal 21.0-31.0 [facility] Comment on above: Performed By: #### C BC, MG, CMP #### [facility] [address] [place] [address] Creatinine [Mass/Vol] 0.96 mg/dL Normal 0.60-1.20 [facility] Comment on above: Performed By: #### C BC, MG, CMP #### [address] Creatinine Clr Calc Pharmacy 84.51 Normal [facility] Comment on above: Performed By: #### C BC, MG, CMP #### [place] [address] [place] GFR/1.73 sq M.predicted MDRD (S/P/Bld) [Vol rate/Area] mL/min/{1.73_m2} Normal [facility] Comment on above: Performed By: #### C BC, MG, CMP #### [address] Globulin (S) [Mass/Vol] 3.3 g/dL Normal [facility] Comment on above: Performed By: #### C BC, MG, CMP #### [address] Glucose [Mass/Vol] 133 mg/dL High 70-100 [facility] Comment on above: Result Comment: [facility] Glucose Reference Range is dependent on time and content of last meal. Glucose of more than 200 mg/dL in a nonstressed, ambulatory subject supports the diagnosis of Diabetes Mellitus. ADA recommended reference range Performed By: #### C BC, MG, CMP #### [address] Potassium [Moles/Vol] 3.5 mmol/L Normal 3.5-5.1 [facility] Comment on above: Performed By: #### C BC, MG, CMP #### [address] Protein [Mass/Vol] 7.7 g/dL Normal 6.4-8.9 [facility] Comment on above: Performed By: #### C BC, MG, CMP #### [address] Sodium [Moles/Vol] 141 mmol/L Normal 136-145 [facility] Comment on above: Performed By: #### C BC, MG, CMP #### [address] Urea nitrogen [Mass/Vol] 18 mg/dL Normal 7-25 [facility] Comment on above: Performed By: #### C BC, MG, CMP #### [address] Magnesiumon 03-05-2024 Magnesium [Mass/Vol] 2.0 mg/dL Normal 1.9-2.7 [facility] Comment on above: Result Comment: PERF ORMED BY: [place] [address] PATHOLOGIST NET TECHNICAL ARCHITECT ADIEL AGUSTIN M.D. Performed By: #### C BC, MG, CMP #### [address] Complete Blood Count Auto Di ffon 03-04-2024 Basophils (Bld) [#/Vol] 0.1 10*3/uL Normal 0.0-0.2 [facility] Comment on above: Result Comment: PERF ORMED BY: [place] [address] PATHOLOGIST NET TECHNICAL ARCHITECT ADIEL AGUSTIN M.D. Performed By: #### C MP, MG, CBC #### [place] [address] [place] Basophils/100 WBC (Bld) 0.6 % Normal . [facility] Comment on above: Performed By: #### C MP, MG, CBC #### [place] [address] [place] Eosinophils (Bld) [#/Vol] 0.2 10*3/uL Normal 0.0-0.45 [facility] Comment on above: Performed By: #### C MP, MG, CBC #### [address] Eosinophils/100 WBC (Bld) 1.9 % Normal . [facility] Comment on above: Performed By: #### C MP, MG, CBC #### [address] Erythrocyte distribution width (RBC) [Ratio] 14.6 % Normal 11.9-15.3 [facility] Comment on above: Performed By: #### C MP, MG, CBC #### [address] Hematocrit (Bld) [Volume fraction] 43.5 % Normal 34.0-46.4 [facility] Comment on above: Performed By: #### C MP, MG, CBC #### [address] Hemoglobin (Bld) [Mass/Vol] 14.4 g/dL Normal 11.8-15.4 [facility] Comment on above: Performed By: #### C MP, MG, CBC #### [address] Lymphocytes (Bld) [#/Vol] 1.8 10*3/uL Normal 1.00-4.8 [facility] Comment on above: Performed By: #### C MP, MG, CBC #### [address] Lymphocytes/100 WBC (Bld) 18.0 % Normal . [facility] Comment on above: Performed By: #### C MP, MG, CBC #### [address] MCH (RBC) [Entitic mass] 28.8 pg Normal 24.7-34.3 [facility] Comment on above: Performed By: #### C MP, MG, CBC #### [address] MCV (RBC) [Entitic vol] 87.0 fL Normal 80-100 [facility] Comment on above: Performed By: #### C MP, MG, CBC #### [address] Mean Corpuscular HGB Conc 33.2 g/dL Normal 32.0-35.0 [facility] Comment on above: Performed By: #### C MP, MG, CBC #### [facility] [address] [place] [address] [place] Monocytes (Bld) [#/Vol] 0.8 10*3/uL Normal 0.0-0.8 [facility] Comment on above: Performed By: #### C MP, MG, CBC #### [facility] [address] [place] [address] [place] Monocytes/100 WBC (Bld) 8.2 % Normal . [facility] Comment on above: Performed By: #### C MP, MG, CBC #### [facility] [address] Neutrophils (Bld) [#/Vol] 7.3 10*3/uL Normal 1.8-7.7 [facility] Comment on above: Performed By: #### C MP, MG, CBC #### [facility] [address] Neutrophils/100 WBC (Bld) 71.3 % Normal . [facility] Comment on above: Performed By: #### C MP, MG, CBC #### [facility] [address] [place] [address] [place] NRBC% 0.1 /100{WBC} Normal 0-0.5 [facility] Comment on above: Performed By: #### C MP, MG, CBC #### [facility] [address] [place] [address] [place] Platelet mean volume (Bld) [Entitic vol] 8.8 fL Normal 6.3-10.7 [facility] Comment on above: Performed By: #### C MP, MG, CBC #### [facility] [address] [place] [address] [place] Platelets (Bld) [#/Vol] 334 10*3/uL Normal 150-450 [facility] Comment on above: Performed By: #### C MP, MG, CBC #### [facility] [address] [place] [address] [place] RBC (Bld) [#/Vol] 5.01 10*6/uL High 3.60-5.00 [facility] Comment on above: Performed By: #### C MP, MG, CBC #### [address] WBC (Bld) [#/Vol] 10.3 10*3/uL Normal 3.8-11.6 [facility] Comment on above: Performed By: #### C MP, MG, CBC #### [address] Comprehensive Metabolic Pane [place] 03-04-2024 Albumin [Mass/Vol] 4.5 g/dL Normal 3.5-5.7 [facility] Comment on above: Performed By: #### C MP, MG, CBC #### [address] Albumin/Globulin [Mass ratio] 1.4 {ratio} Normal [facility] Comment on above: Performed By: #### C MP, MG, CBC #### [address] ALP [Catalytic activity/Vol] 79 U/L Normal 34-104 [facility] Comment on above: Performed By: #### C MP, MG, CBC #### [address] ALT [Catalytic activity/Vol] 19 U/L Normal 7-52 [facility] Comment on above: Performed By: #### C MP, MG, CBC #### [address] Anion gap [Moles/Vol] 11.4 mmol/L Normal 6.0-15.0 [facility] Comment on above: Performed By: #### C MP, MG, CBC #### [address] AST [Catalytic activity/Vol] 37 U/L Normal 13-39 [facility] Comment on above: Performed By: #### C MP, MG, CBC #### [address] Bilirubin [Mass/Vol] 0.5 mg/dL Normal 0.3-1.0 [facility] Comment on above: Performed By: #### C MP, MG, CBC #### [address] Calcium [Mass/Vol] 9.6 mg/dL Normal 8.6-10.3 [facility] Comment on above: Performed By: #### C MP, MG, CBC #### [address] Chloride [Moles/Vol] 107 mmol/L Normal 98-107 [facility] Comment on above: Performed By: #### C MP, MG, CBC #### [address] CO2 [Moles/Vol] 27.4 mmol/L Normal 21.0-31.0 [facility] Comment on above: Performed By: #### C MP, MG, CBC #### [address] Creatinine [Mass/Vol] 0.91 mg/dL Normal 0.60-1.20 [facility] Comment on above: Performed By: #### C MP, MG, CBC #### [address] Creatinine Clr Calc Pharmacy 90.12 Normal [facility] Comment on above: Performed By: #### C MP, MG, CBC #### [address] GFR/1.73 sq M.predicted MDRD (S/P/Bld) [Vol rate/Area] mL/min/{1.73_m2} Normal [facility] Comment on above: Performed By: #### C MP, MG, CBC #### [address] Globulin (S) [Mass/Vol] 3.2 g/dL Normal [facility] Comment on above: Performed By: #### C MP, MG, CBC #### [address] Glucose [Mass/Vol] 100 mg/dL Normal 70-100 [facility] Comment on above: Result Comment: [facility] Glucose Reference Range is dependent on time and content of last meal. Glucose of more than 200 mg/dL in a nonstressed, ambulatory subject supports the diagnosis of Diabetes Mellitus. ADA recommended reference range Performed By: #### C MP, MG, CBC #### [facility] [address] Potassium [Moles/Vol] 3.8 mmol/L Normal 3.5-5.1 [facility] Comment on above: Performed By: #### C MP, MG, CBC #### [facility] [address] Protein [Mass/Vol] 7.7 g/dL Normal 6.4-8.9 [facility] Comment on above: Performed By: #### C MP, MG, CBC #### [facility] [address] Sodium [Moles/Vol] 142 mmol/L Normal 136-145 [facility] Comment on above: Performed By: #### C MP, MG, CBC #### [facility] [address] Urea nitrogen [Mass/Vol] 15 mg/dL Normal 7-25 [facility] Comment on above: Performed By: #### C MP, MG, CBC #### [address] MR head/brain wo/w [facility] MR head/brain wo/w [facility] [address] [place] [address] MRI Report Signed Patient: Michelle Be MR#: [id number] : 1960 Acct:[id number] Age/Sex: 63 / F ADM Date: 03/03/24 Loc: Room: [address] [place] [address] Type: ADM IN Attending Dr: Delta Gan MD Copies to: DO Delta Damon MD Ordering Provider: Dennis Steel DO Date of Service: 03/04/24 MR/MR head/brain wo/w con: severe encepahlopathy MR head/brain wo/w con 03/02/2024 4:24 PM SIGN AND SYMPTOMS: Altered mental status, anxiety, agitation PROTOCOL: Multiplanar multisequence MR images of the brain were obtained with and without IV contrast CONTRAST: 20 mL of intravenous ProHance COMPARISON: 06/25/2018 FINDINGS: Extra axial spaces: There is age-related cortical atrophy. Atrophy is greatest along the frontal and temporal lobes. Hemorrhage: None. Ventricular system: Within normal limits. Basal cisterns: Within normal limits and not effaced. Cerebral parenchyma: T2 and FLAIR hyperintense signal is noted in the periventricular and subcortical white matter. Midline shift: None.. Cerebellum: Within normal limits. Brainstem: Within normal limits. OTHER: Calvarium: Normal marrow signal. Vascular system: Satisfactory flow voids within the anterior and posterior circulation. Visualized Paranasal sinuses: Within normal limits. Visualized Orbits: Within normal limits. Visualized upper cervical spine: Within normal limits. Sella and skull base: Within normal limits. MR/MR head/brain wo/w con IMPRESSION: No acute intracranial pathology or abnormal postcontrast enhancement. There is diffuse atrophy which is greatest along the frontal and temporal lobes. This is nonspecific. Correlation with clinical signs of frontotemporal dementia is recommended. Impression dictated by: Willi Guadalupe M.D.03/04/2024 2:32 PM Dictation Location: [place] [address] Transcribed By: [facility] 03/04/24 1432 Dictated By: Willi Guadalupe II, MD 03/04/24 1424 Signed By: 03/04/24 1432 Normal [facility] Magnesiumon 03-04-2024 Magnesium [Mass/Vol] 2.0 mg/dL Normal 1.9-2.7 [facility] Comment on above: Result Comment: PERF ORMED BY: [place] [address] PATHOLOGIST NET TECHNICAL ARCHITECT ADIEL AGUSTIN M.D. Performed By: #### C MP, MG, CBC #### [address] Complete Blood Count Auto Di ffon 03-03-2024 Basophils (Bld) [#/Vol] 0.1 10*3/uL Normal 0.0-0.2 [facility] Comment on above: Order Comment: RIN T O COME TRY,KAH,160 Result Comment: PERF ORMED BY: [place] [address] PATHOLOGIST NET TECHNICAL ARCHITECT ADIEL AGUSTIN M.D. Performed By: #### C MP, CBC #### [address] Basophils/100 WBC (Bld) 0.6 % Normal . [facility] Comment on above: Order Comment: RIN T O COME TRY,KAH,160 Performed By: #### C MP, CBC #### [address] Eosinophils (Bld) [#/Vol] 0.1 10*3/uL Normal 0.0-0.45 [facility] Comment on above: Order Comment: RIN T O COME TRY,KAH,160 Performed By: #### C MP, CBC #### [address] Eosinophils/100 WBC (Bld) 1.0 % Normal . [facility] Comment on above: Order Comment: RIN T O COME TRY,KAH,160 Performed By: #### C MP, CBC #### [address] Erythrocyte distribution width (RBC) [Ratio] 14.6 % Normal 11.9-15.3 [facility] Comment on above: Order Comment: RIN T O COME TRY,KAH,160 Performed By: #### C MP, CBC #### [address] Hematocrit (Bld) [Volume fraction] 42.9 % Normal 34.0-46.4 [facility] Comment on above: Order Comment: RIN T O COME TRY,KAH,160 Performed By: #### C MP, CBC #### [address] [address] [place] Hemoglobin (Bld) [Mass/Vol] 14.5 g/dL Normal 11.8-15.4 [facility] Comment on above: Order Comment: RIN T O COME TRY,KAH,1607 Performed By: #### C MP, CBC #### [address] Lymphocytes (Bld) [#/Vol] 1.7 10*3/uL Normal 1.00-4.8 [facility] Comment on above: Order Comment: RIN T O COME TRY,KAH,1607 Performed By: #### C MP, CBC #### [address] Lymphocytes/100 WBC (Bld) 15.7 % Normal . [facility] Comment on above: Order Comment: RIN T O COME TRY,KAH,1607 Performed By: #### C MP, CBC #### [address] MCH (RBC) [Entitic mass] 29.1 pg Normal 24.7-34.3 [facility] Comment on above: Order Comment: RIN T O COME TRY,KAH,1607 Performed By: #### C MP, CBC #### [address] MCV (RBC) [Entitic vol] 85.9 fL Normal 80-100 [facility] Comment on above: Order Comment: RIN T O COME TRY,KAH,1607 Performed By: #### C MP, CBC #### [address] Mean Corpuscular HGB Conc 33.8 g/dL Normal 32.0-35.0 [facility] Comment on above: Order Comment: RIN T O COME TRY,KAH,1607 Performed By: #### C MP, CBC #### [address] Monocytes (Bld) [#/Vol] 0.9 10*3/uL High 0.0-0.8 [facility] Comment on above: Order Comment: RIN T O COME TRY,KAH,1607 Performed By: #### C MP, CBC #### [facility] [address] [place] [address] [place] Monocytes/100 WBC (Bld) 8.4 % Normal . [facility] Comment on above: Order Comment: RIN T O COME TRY,KAH,[id number] Performed By: #### C MP, CBC #### [facility] [address] [place] [address] [place] Neutrophils (Bld) [#/Vol] 8.0 10*3/uL High 1.8-7.7 [facility] Comment on above: Order Comment: RIN T O COME TRY,KAH,1607 Performed By: #### C MP, CBC #### [place] [address] [place] Neutrophils/100 WBC (Bld) 74.3 % Normal . [facility] Comment on above: Order Comment: RIN T O COME TRY,KAH,160 Performed By: #### C MP, CBC #### [address] NRBC% 0.1 /100{WBC} Normal 0-0.5 [facility] Comment on above: Order Comment: RIN T O COME TRY,KAH,160 Performed By: #### C MP, CBC #### [place] [address] [place] Platelet mean volume (Bld) [Entitic vol] 8.9 fL Normal 6.3-10.7 [facility] Comment on above: Order Comment: RIN T O COME TRY,KAH,160 Performed By: #### C MP, CBC #### [place] [address] [place] Platelets (Bld) [#/Vol] 291 10*3/uL Normal 150-450 [facility] Comment on above: Order Comment: RIN T O COME TRY,KAH,1607 Performed By: #### C MP, CBC #### [place] [address] [place] RBC (Bld) [#/Vol] 4.99 10*6/uL Normal 3.60-5.00 [facility] Comment on above: Order Comment: RIN T O COME TRY,KAH,1607 Performed By: #### C MP, CBC #### [address] WBC (Bld) [#/Vol] 10.7 10*3/uL Normal 3.8-11.6 [facility] Comment on above: Order Comment: RIN T O COME TRY,KAH,1607 Performed By: #### C MP, CBC #### [address] Comprehensive Metabolic Pane [place] 03-03-2024 Albumin [Mass/Vol] 4.6 g/dL Normal 3.5-5.7 [facility] Comment on above: Order Comment: RIN T O COME TRY,KAH,1607 Performed By: #### C MP, CBC #### [address] Albumin/Globulin [Mass ratio] 1.4 {ratio} Normal [facility] Comment on above: Order Comment: RIN T O COME TRY,KAH,1607 Performed By: #### C MP, CBC #### [address] ALP [Catalytic activity/Vol] 80 U/L Normal 34-104 [facility] Comment on above: Order Comment: RIN T O COME TRY,KAH,1607 Performed By: #### C MP, CBC #### [address] ALT [Catalytic activity/Vol] 16 U/L Normal 7-52 [facility] Comment on above: Order Comment: RIN T O COME TRY,KAH,1607 Performed By: #### C MP, CBC #### [address] Anion gap [Moles/Vol] 13.6 mmol/L Normal 6.0-15.0 e [facility] Comment on above: Order Comment: RIN T O COME TRY,KAH,1607 Performed By: #### C MP, CBC #### [address] [place] [address] [place] AST [Catalytic activity/Vol] 35 U/L Normal 13-39 [facility] Comment on above: Order Comment: RIN T O COME TRY,KAH,1607 Performed By: #### C MP, CBC #### [address] Bilirubin [Mass/Vol] 0.3 mg/dL Normal 0.3-1.0 [facility] Comment on above: Order Comment: RIN T O COME TRY,KAH,1607 Performed By: #### C MP, CBC #### [address] Calcium [Mass/Vol] 9.3 mg/dL Normal 8.6-10.3 [facility] Comment on above: Order Comment: RIN T O COME TRY,KAH,160 Performed By: #### C MP, CBC #### [address] Chloride [Moles/Vol] 109 mmol/L High 98-107 [facility] Comment on above: Order Comment: RIN T O COME TRY,KAH,160 Performed By: #### C MP, CBC #### [address] CO2 [Moles/Vol] 22.4 mmol/L Normal 21.0-31.0 The [facility] Comment on above: Order Comment: RIN T O COME TRY,KAH,160 Performed By: #### C MP, CBC #### [address] Creatinine [Mass/Vol] 0.93 mg/dL Normal 0.60-1.20 [facility] Comment on above: Order Comment: RIN T O COME TRY,KAH,160 Performed By: #### C MP, CBC #### [address] Creatinine Clr Calc Pharmacy 87.94 Normal [facility] Comment on above: Order Comment: RIN T O COME TRY,KAH,1607 Result Comment: PERF ORMED BY: [place] [address] PATHOLOGIST NET TECHNICAL ARCHITECT ADIEL AGUSTIN M.D. Performed By: #### C MP, CBC #### [facility] [address] [place] [address] [place] GFR/1.73 sq M.predicted MDRD (S/P/Bld) [Vol rate/Area] mL/min/{1.73_m2} Normal [facility] Comment on above: Order Comment: REY PORRAS,WEN,1606 Performed By: #### C MP, CBC #### [facility] [address] [place] [address] [place] Globulin (S) [Mass/Vol] 3.2 g/dL Normal [facility] Comment on above: Order Comment: REY PORRAS,KAH,1606 Performed By: #### C MP, CBC #### [facility] [address] [place] [id number] [place] Glucose [Mass/Vol] 105 mg/dL High 70-100 [facility] Comment on above: Order Comment: REY PORRAS,KAH,1606 Result Comment: [facility] Glucose Reference Range is dependent on time and content of last meal. Glucose of more than 200 mg/dL in a nonstressed, ambulatory subject supports the diagnosis of Diabetes Mellitus. ADA recommended reference range Performed By: #### C MP, CBC #### [facility] [address] [place] [id number] [place] Potassium [Moles/Vol] 4.0 mmol/L Normal 3.5-5.1 [facility] Comment on above: Order Comment: REY PORRAS,KAH,1606 Performed By: #### C MP, CBC #### [facility] [address] [place] [id number] [place] Protein [Mass/Vol] 7.8 g/dL Normal 6.4-8.9 [facility] Comment on above: Order Comment: REY PORRAS,KAH,1606 Performed By: #### C MP, CBC #### [facility] [address] [place] [id number] [place] Sodium [Moles/Vol] 141 mmol/L Normal 136-145 [facility] Comment on above: Order Comment: REY PORRAS,KAH,1607 Performed By: #### C MP, CBC #### [facility] [address] Urea nitrogen [Mass/Vol] 15 mg/dL Normal 7-25 [facility] Comment on above: Order Comment: REY PORRAS,KAH,1607 Performed By: #### C MP, CBC #### [facility] [address] IGP,APTIMA HPV,AGE GDLNon AGE GDLN ACOG TESTING Note . [facility] Healthcare Comment on above: TESTS RESULT FLAG U NITS REF RANGE LAB Clinician Provided Cytology Information Source.............Cervix;Endocervix No. of containers..01 ThinPrep Vial Age Algo ACOG Tona... 30-65 01 FLAG LEGEND: L-Low Normal,H-High Normal,LL-Alert Low,HH-Alert High <-Panic Low,>-Panic High,A-Abnormal,AA-Critical Abnormal Performed at: 01 =[address] [address] Farzana Hennessy MD, HPV APTIMA Negative Negative [facility] Healthcare Comment on above: This nucleic acid am plification test detects fourteen high- risk HPV types (16,18,31,33,35,39,45,51,52,56,58,59,66,68) without differentiation. Performed at: =G - [facility] [id number] Licensed Weigher: Farzana Hennessy MD, Phone: [phone] Performed at: [facility] [id number] [place] [id number] Licensed Weigher: Scott Sandoval MD, Phone: [phone] IGP, APTIMA HPV, RFX 16/18,45 Note . [facility] Comment on above: TESTS RESULT FLAG UN ITS REF RANGE LAB DIAGNOSIS: 02 NEGATIVE FOR INTRAEPITHELIAL LESION OR MALIGNANCY. Specimen adequacy: 02 Satisfactory for evaluation. Endocervical and/or squamous metaplastic cells (endocervical component) are present. Performed by: 02 Adelaida Bustamante, Knifeman (ASCP) . 02 Note: Note 03 The Pap [...] High,A-Abnormal,AA-Critical Abnormal Performed at: 02 [facility] [address] [place] [address] Scott Sandoval MD, 03 WB [facility] [address] [address] Farzana Hennessy MD, BROOM-ALONE CERVIX ENDOCERVIX [facility] Urinalysis macro (dipstick) panel (U)on 01-28-2024 Bilirubin, UA Negative Negative - 4(70) +++ mg/dL [facility] Blood, UA Negative Negative - 50 Kranthi/mcL [facility] Clarity, UA Clear [facility] Color, UA Dark Tania [facility] Glucose, UA Negative Negative - 2000(110) ++++ mg/dL [facility] Interpretation and review of laboratory results Abnormal [facility] Ketones, UA Negative Negative - 160(16) ++++ mg/dL [facility] Leukocytes, UA Trace Negative - 500+++ Radha/mcL [facility] Nitrite, UA Negative Negative - Positive [facility] pH, UA 5.5 5 - 9 [facility] Protein, UA Negative Negative - 2000(20) ++++ mg/dL [facility] Spec Grav, UA 1.025 1 - 1.03 [facility] Urobilinogen, UA 0.2 0.2 - 12 mg/dL [facility] MHPT CULT,URINEon 01-23-2024 Interpretation and review of laboratory results Abnormal [facility] MHPT CULT,URINE Specimen Description .CLEAN CATCH URINE [facility] MHPT CULT,URINE Culture ESCHERICHIA COLI >100,000 CFU/ML Abnormal [facility] MHPT CULT,URINE STREPTOCOCCI, BETA HEMOLYTIC GROUP B 10 to 50,000 CFU/ML Abnormal [facility] MHPT CULT,URINE Report Status FINAL 01/23/2024 [facility] MHPT CULT,URINE SUSCEPTIBILITY [facility] MHPT CULT,URINE Organism [facility] CROW [facility]PT CULT,URINE Ampicillin 16 INTERMEDIATE Intermediate [facility] MHPT CULT,URINE Cefazolin <=4 SUSCEPTIBLE Susceptible [facility] MHPT CULT,URINE Cefazolin sensitivit y results can be used to predict the effectiveness of oral Susceptible [facility] MHPT CULT,URINE cephalosporins (eg. Cephalexin) in uncomplicated Urinary Tract Infections due Susceptible [facility] MHPT CULT,URINE to E. coli, K. pneumoniae, and P. mirabilis Susceptible [facility] MHPT CULT,URINE Ceftriaxone <=0.25 SUSCEPTIBLE Susceptible [facility] MHPT CULT,URINE Negative Susceptible [facility] MHPT CULT,URINE Gentamicin <=1 SUSCEPTIBLE Susceptible [facility] MHPT CULT,URINE Levofloxacin <=0.12 SUSCEPTIBLE Susceptible [facility] MHPT CULT,URINE Nitrofurantoin <=16 SUSCEPTIBLE Susceptible [facility] MHPT CULT,URINE Piperacillin/Tazobac ta m <=4 SUSCEPTIBLE Susceptible [facility] MHPT CULT,URINE Tobramycin <=1 SUSCEPTIBLE Susceptible [facility] Trimethoprim/Sulfa <=20 SUSCEPTIBLE Susceptible [facility] Original Ordering Provider[facility] METABOLIC PANELon 01-05-2024 Anion gap [Moles/Vol] 11.1 mmol/L [facility] Calcium [Mass/Vol] 9.2 mg/dL 8.5 - 10. 1 mg/dL [facility] Chloride [Moles/Vol] 105 mmol/L 98 - 10 7 mmol/L [facility] CO2 [Moles/Vol] 28.0 mmol/L 21.0 - 32.0 mmol/L [facility] Creatinine [Mass/Vol] 1.08 mg/dL High 0.55 - 1.02 mg/dL [facility] GFR/1.73 sq M.predicted CKD-EPI (S/P/Bld) [Vol rate/Area] >60 60 - PINF [facility] Glucose [Mass/Vol] 92 mg/dL 74 - 106 mg/dL [facility] Interpretation and review of laboratory results Abnormal [facility] Potassium [Moles/Vol] 4.1 mmol/L 3.5 - 5.1 mmol/L [facility] Sodium [Moles/Vol] 140 mmol/L 136 - 145 mmol/L [facility] TBH EGFR-NON AF CITIZEN [place] 51 Low 60 - PINF [facility] Urea nitrogen [Mass/Vol] 17.0 mg/dL 7.0 - 18.0 mg/dL [facility] Urea nitrogen/Creatinine [Mass ratio] 15.7 mg/mg [facility] Amphetamine Screen Ql (U)Ord ered By: aJce Graham on 03-23-2023 Amphetamines Ql (U) Negative Negative [facility] Barbiturates [Presence] in U rine by Screen methodOrdered By: Jace Graham on 03-23-2023 Barbiturates Screen Ql (U) Negative Negative [facility] Benzodiazepines Screen Ql (U )Ordered By: Jace Graham on 03-23-2023 Benzodiazepines Ql (U) Negative Negative [facility] Benzoylecgonine [Presence] i n Urine by Screen methodOrdered By: Jace Graham on 03-23-2023 Benzoylecgonine Screen Ql (U) Negative Negative [facility] Cannabinoids [Presence] in U rine by Screen methodOrdered By: Jace Graham on 03-23-2023 Cannabinoids Screen Ql (U) Negative Negative [facility] Comment on above: These are unconfirme d results and should not be used for legal purposes. Drug Cut-Off Concentration: AMPH 1000 ng/mL ELKIN 200 ng/mL ATIYA 200 ng/mL COCM 300 ng/mL OP 300 ng/mL PCP 25 ng/mL THC 20 ng/mL Drug Screen,Urineon 03-23-20 Amphetamine Screen,Urine Negative Normal Negative [facility] Comment on above: Performed By: #### U RDS #### [address] Barbiturate Screen,Urine Negative Normal Negative [facility] Comment on above: Performed By: #### U RDS #### [facility] [address] [place] [address] [place] Benzodiazepines Screen,Urine Negative Normal Negative [facility] Comment on above: Performed By: #### U RDS #### [facility] [address] [place] [address] [place] Cannabinoid Screen,Urine Negative Normal Negative [facility] Comment on above: Result Comment: Thes e are unconfirmed results and should not be used for legal purposes. Drug Cut-Off Concentration: AMPH 1000 ng/mL ELKIN 200 ng/mL ATIYA 200 ng/mL COCM 300 ng/mL OP 300 ng/mL PCP 25 ng/mL THC 20 ng/mL PERFORMED BY: [place] [address] PATHOLOGIST NET TECHNICAL ARCHITECT AN CURRY M.D. Performed By: #### U RDS #### [facility] [address] Cocaine Screen,Urine Negative Normal Negative [facility] Comment on above: Performed By: #### U RDS #### [facility] [address] Opiate Screen,Urine Negative Normal Negative [facility] Comment on above: Performed By: #### U RDS #### [facility] [address] Phencyclidine Screen,Urine Negative Normal Negative [facility] Comment on above: Performed By: #### U RDS #### [facility] [address] Opiates [Presence] in Urine by Screen methodOrdered By: Jace Graham on 03-23-2023 Opiates Screen Ql (U) Negative Negative [facility] Phencyclidine Screen Ql (U)O rdered By: Jace Graham on 03-23-2023 Phencyclidine Ql (U) Negative Negative [facility] Cholesterol [Mass/volume] in Serum or PlasmaOrdered By: Eduardo Monk on 11-18-2022 Cholesterol [Mass/Vol] 159 mg/dL 140-200 [facility] Comment on above: Chol less than 200 m g/dl low riskChol 201-239 mg/dl borderline riskChol 240 mg/dl and greater high risk Cholesterol in LDL Calc [Mas s/Vol]Ordered By: Eduardo Monk on 11-18-2022 Cholesterol in LDL [Mass/Vol] 84 mg/dL 0-100 [facility] Comment on above: LDL ATP III CLASSIFI CATIONLDL less than 100 mg/dL OptimalLDL 100-129 mg/dL Near or above optimalLDL 130-159 mg/dL Borderline highLDL 160-189 mg/dL HighLDL greater than 189 mg/dL Very high Cholesterol in VLDL Calc [Ma ss/Vol]Ordered By: Eduardo Monk on 11-18-2022 Cholesterol in VLDL [Mass/Vol] 28 mg/dL [facility] Serum or plasma high density lipoprotein (HDL) cholesterol measurementOrdered By: Eduardo Monk on 11-18-2022 Cholesterol in HDL [Mass/Vol] 46 mg/dL 23-92 [facility] Comment on above: HDL CHOL ATP-III CLA SSIFICATION Cardiovascular RiskHDL > or equal to 60 mg/dL LOWHDL < 40 mg/dL HIGH Serum or plasma total choles terol/high density lipoprotein (HDL) cholesterol mass ratOrdered By: Eduardo Monk on 11-18-2022 Cholesterol.total/Chol esterol in HDL [Mass ratio] 3.5 {ratio} <5.0 [facility] Thyrotropin [Units/volume] i n Serum or PlasmaOrdered By: Eduardo Monk on 11-18-2022 TSH Qn 2.13 m[IU]/L 0.45-5.33 [facility] Triglyceride [Mass/volume] i n Serum or PlasmaOrdered By: Eduardo Monk on 11-18-2022 Triglyceride [Mass/Vol] 144 mg/dL 0-149 [facility] Comment on above: TRIG ATP III CLASSIF ICATIONTRIG less than 150 mg/dL NormalTRIG 150-199 mg/dL Borderline highTRIG 200-500 mg/dL High TRIG greater than 500 mg/dL Very highStandard traceable to the Center for Disease Conrtrol and Prevention (CDC) test method. Vitamin D+Metabolites [Mass/ volume] in Serum or PlasmaOrdered By: Eduardo Monk on 11-18-2022 Vitamin D+Metabolites [Mass/Vol] 50.4 ng/mL 30-100 [facility] Comment on above: VITAMIN D STATUS 25( [place])VITAMIN D RANGE (ng/mL) Deficient <20 Insufficient 20 to <30Sufficient 30 to 100Reference: Bin MF,Lakshmi CABRERA, Cristian SMART, et al. Evaluation,treatment, and prevention of vitamin D deficiency; an Endocrine Society clinical practice guideline. JCEM. 2010; 96(7):1911-30. CBC AUTO DIFFon 07-25-2022 BASO # 0.1 103/ul Normal 0.0-0.1 [facility] Comment on above: Performed By: #### A 1C #### [facility] [address] [place] [address] Dr. Bebeto Alvarado Basophils/100 WBC (Bld) 0.6 % Normal 0.2-2.0 [facility] Comment on above: Performed By: #### A 1C #### [facility] [address] [place] [address] Dr. Bebeto Alvarado EO # 0.2 103/ul Normal 0.0-0.7 [facility] Comment on above: Performed By: #### A 1C #### [facility] [address] [place] [address] Dr. Bebeto Alvarado Eosinophils/100 WBC (Bld) 2.3 % Normal 0.9-7.0 [facility] Comment on above: Performed By: #### A 1C #### [facility] [address] [place] [address] Dr. Bebeto Alvarado Erythrocyte distribution width (RBC) [Ratio] 13.8 % Normal 11.0-15.0 [facility] Comment on above: Performed By: #### A 1C #### [facility] [address] [place] [address] Dr. Bebeto Alvarado Hematocrit (Bld) [Volume fraction] 41.2 % Normal 36.0-48.0 [facility] Comment on above: Performed By: #### A 1C #### [facility] [address] [place] [address] Dr. Bebeto Alvarado Hemoglobin (Bld) [Mass/Vol] 13.2 g/dL Normal 12.0-16.0 [facility] Comment on above: Performed By: #### A 1C #### [facility] [address] [place] [address] Dr. Bebeto Alvarado IG # 0.03 10e3/ul Normal 0.00-0.03 [facility] Comment on above: Performed By: #### A 1C #### [facility] [address] [place] [address] Dr. Bebeto Alvarado IG % 0.4 % Normal 0.0-0.5 [facility] Comment on above: Performed By: #### A 1C #### [facility] [address] [place] [address] Dr. Bebeto Alvarado LYMPH # 2.1 103/ul Normal 1.2-3.8 [facility] Comment on above: Performed By: #### A 1C #### [facility] [address] [place] [address] Dr. Bebeto Alvarado Lymphocytes/100 WBC (Bld) 25.9 % Normal 20.5-60.0 [facility] Comment on above: Performed By: #### A 1C #### [facility] [address] [place] [address] Dr. Bebeto Alvarado MANUAL DIFF REQ NO Normal [facility] Comment on above: Performed By: #### A 1C #### [facility] [address] [place] [address] Dr. Bebeto Alvarado MCH (RBC) [Entitic mass] 28.0 pg Normal 26.7-34.0 [facility] Comment on above: Performed By: #### A 1C #### [facility] [address] [place] [address] Dr. Bebeto Alvarado MCHC (RBC) [Mass/Vol] 32.0 g/dL Normal 29.9-35.2 [facility] Comment on above: Performed By: #### A 1C #### [facility] [address] [place] [address] Dr. Bebeto Alvarado MCV (RBC) [Entitic vol] 87.5 fL Normal 81.0-99.0 [facility] Comment on above: Performed By: #### A 1C #### [facility] [address] [place] [address] Dr. Bebeto Alvarado MONO # 0.5 103/ul Normal 0.3-0.8 [facility] Comment on above: Performed By: #### A 1C #### [facility] [address] [place] [address] Dr. Bebeto Alvarado Monocytes/100 WBC (Bld) 6.6 % Normal 1.7-12.0 [facility] Comment on above: Performed By: #### A 1C #### [facility] [address] [place] [address] Dr. Bebeto Alvarado NEUT # 5.1 103/ul Normal 1.4-6.5 [facility] Comment on above: Performed By: #### A 1C #### [facility] [address] [place] [address] Dr. Bebeto Alvarado Neutrophils/100 WBC (Bld) 64.2 % Normal 43.0-75.0 [facility] Comment on above: Performed By: #### A 1C #### [facility] [address] [place] [address] Dr. Bebeto Alvarado Platelet mean volume (Bld) [Entitic vol] 11.2 fL Normal 9.5-13.5 [facility] Comment on above: Performed By: #### A 1C #### [facility] [address] [place] [address] Dr. Bebeto Alvarado PLT 252 103/ul Normal 150-450 [facility] Comment on above: Performed By: #### A 1C #### [facility] [address] [place] [address] Dr. Bebeto Alvarado RBC 4.71 106/ul Normal 4.20-5.40 [facility] Comment on above: Performed By: #### A 1C #### [facility] [address] [place] [address] Dr. Bebeto Alvarado WBC 8.0 103/ul Normal 4.0-11.0 [facility] Comment on above: Performed By: #### A 1C #### [facility] [address] [place] [address] Dr. Bebeto Alvarado GLYCOHEMOGLOBIN A1Con 2022 ADA RECOMMENDATION SEE BELOW Normal [facility] Comment on above: Result Comment: ADA RECOMMENDED LIMIT 4.0 - 6.0 ADA THERAPEUTIC TARGET < 7.0 ACTION SUGGESTED > 7.0 Performed By: #### A 1C #### [facility] [address] [place] [address] Dr. Bebeto Alvarado Glucose [Mass/Vol] 114 mg/dL Normal [facility] Comment on above: Performed By: #### A 1C #### [facility] [address] [place] [address] Dr. Bebeto Alvarado HbA1c (Bld) [Mass fraction] 5.6 % Normal 4.5-6.2 [facility] Comment on above: Performed By: #### A 1C #### [facility] [address] [place] [address] Dr. Bebeto Alvarado IRONon 07-25-2022 Iron [Mass/Vol] 60.0 ug/dL Normal 50.0-170.0 [facility] Comment on above: Performed By: #### V ITB12, IRON #### [facility] [address] [place] [address] Dr. Bebeto Alvarado LIPID PROFILEon 07-25-2022 CHOL-HDL RATIO NORM SEE BELOW Normal [facility] Comment on above: Result Comment: 3.3 - 4.4 LOW RISK 4.4 - 7.1 AVERAGE RISK 7.1 - 11.0 MODERATE RISK >11.0 HIGH RISK Performed By: #### C MP, LIPID #### [facility] [address] [place] [address] Dr. Bebeto Alvarado Cholesterol [Mass/Vol] 144 mg/dL Normal <=200 Th [facility] Comment on above: Performed By: #### C MP, LIPID #### [facility] [address] [place] [address] Dr. Bebeto Alvarado Cholesterol in HDL [Mass/Vol] 39 mg/dL Critically low 40-60 [facility] Comment on above: Performed By: #### C MP, LIPID #### [facility] [address] [place] [address] [address] Bebeto Alvarado Cholesterol in LDL [Mass/Vol] 74.6 mg/dL Normal [facility] Comment on above: Performed By: #### C MP, LIPID #### [facility] [address] [place] [address] Dr. Bebeto Alvarado Cholesterol.total/Chol esterol in HDL [Mass ratio] 3.7 {ratio} Normal [facility] Comment on above: Performed By: #### C MP, LIPID #### [facility] [address] [address] [address] Bebeto Alvarado HDL NORMAL > or = 60 mg/dl - LO W CARDIOVASCULAR RISK <40 mg/dl - HIGH CARDIOVASCULAR RISK Normal [facility] Comment on above: Performed By: #### C MP, LIPID #### [facility] [address] [address] [address] Bebeto Alvarado LDL CALC NORMAL SEE BELOW Normal [facility] Comment on above: Result Comment: <100 mg/dl OPTIMAL 100 - 129 mg/dl NEAR OR ABOVE OPTIMAL 130 - 159 mg/dl BORDERLINE HIGH 160 - 189 mg/dl HIGH >190 mg/dl VERY HIGH Performed By: #### C MP, LIPID #### [facility] [address] [place] [address] Dr. Bebeto Alvarado Triglyceride [Mass/Vol] 152 mg/dL Critically high <=150 [facility] Comment on above: Performed By: #### C MP, LIPID #### [facility] [address] [place] [address] Dr. Bebeto Alvarado VLDL CALC 30.4 mg/dL Normal [facility] Comment on above: Performed By: #### C MP, LIPID #### [facility] [address] [place] [address] Dr. Bebeto Alvarado PROF 14(COMP METB)on 023 Albumin [Mass/Vol] 3.7 g/dL Normal 3.4-5.[address] [facility] Comment on above: Performed By: #### C MP, LIPID #### [facility] [address] [place] [address] Dr. Bebeto Alvarado Albumin/Globulin [Mass ratio] 0.9 {ratio} Normal [facility] Comment on above: Performed By: #### C MP, LIPID #### [facility] [address] [place] [address] Dr. Bebeto Alvarado ALP [Catalytic activity/Vol] 90 U/L Normal 46-116 [facility] Comment on above: Performed By: #### C MP, LIPID #### [facility] [address] [address] [address] Bebeto Alvarado ALT [Catalytic activity/Vol] 38 U/L Normal 14-59 [facility] Comment on above: Performed By: #### C MP, LIPID #### [facility] [address] [address] [address] Bebeto Alvarado Anion gap [Moles/Vol] 12.1 mmol/L Normal [facility] Comment on above: Performed By: #### C MP, LIPID #### [facility] [address] [address] [address] Bebeto Alvarado AST [Catalytic activity/Vol] 26 U/L Normal 15-37 [facility] Comment on above: Performed By: #### C MP, LIPID #### [facility] [address] [place] [address] Dr. Bebeto Alvarado Bilirubin [Mass/Vol] 0.3 mg/dL Normal 0.2-1.0 [facility] Comment on above: Performed By: #### C MP, LIPID #### [facility] [address] [place] [address] Dr. Bebeto Alvarado Calcium [Mass/Vol] 9.3 mg/dL Normal 8.5-10.[address] [facility] Comment on above: Performed By: #### C MP, LIPID #### [facility] [address] [place] [address] Dr. Bebeto Alvarado Chloride [Moles/Vol] 107 mmol/L Normal 98-107 [facility] Comment on above: Performed By: #### C MP, LIPID #### [facility] [address] [place] [address] Dr. Bebeto Alvarado CO2 [Moles/Vol] 27.9 mmol/L Normal 21.0-32.0 [facility] Comment on above: Performed By: #### C MP, LIPID #### [facility] [address] [place] [address] Dr. Bebeto Alvarado Creatinine [Mass/Vol] 0.95 mg/dL Normal 0.55-1.02 [facility] Comment on above: Performed By: #### C MP, LIPID #### [facility] [address] [address] [address] Bebeto Alvarado EGFR-AF CITIZEN OF [place] >60 Normal >=60 [facility] Comment on above: Performed By: #### C MP, LIPID #### [facility] [address] [address] [address] Bebeto Alvarado EGFR-NON AF CITIZEN OF [place] 60 mL/min/1.73m2 Normal >=60 [facility] Comment on above: Performed By: #### C MP, LIPID #### [facility] [address] [address] [address] Bebeto Alvarado Globulin (S) [Mass/Vol] 3.9 g/dL Normal [facility] Comment on above: Performed By: #### C MP, LIPID #### [facility] [address] [place] [address] Dr. Bebeto Alvarado Glucose [Mass/Vol] 108 mg/dL Critically high 74-106 [facility] Comment on above: Performed By: #### C MP, LIPID #### [facility] [address] [place] [address] Dr. Bebeto Alvarado Potassium [Moles/Vol] 4.0 mmol/L Normal 3.5-5.1 [facility] Comment on above: Performed By: #### C MP, LIPID #### [facility] [address] [place] [address] Dr. Bebeto Alvarado Protein [Mass/Vol] 7.6 g/dL Normal 6.4-8.2 [facility] Comment on above: Performed By: #### C MP, LIPID #### [facility] [address] [place] [address] Dr. Bebeto Alvarado Sodium [Moles/Vol] 143 mmol/L Normal 136-145 [facility] Comment on above: Performed By: #### C MP, LIPID #### [facility] [address] [address] [address] Bebeto Alvarado Urea nitrogen [Mass/Vol] 15.0 mg/dL Normal 7.0-18.0 [facility] Comment on above: Performed By: #### C MP, LIPID #### [facility] [address] [place] [address] Dr. Bebeto Alvarado Urea nitrogen/Creatinine [Mass ratio] 15.8 mg/mg Normal [facility] Comment on above: Performed By: #### C MP, LIPID #### [facility] [address] [place] [address] Dr. Bebeto Alvarado UA RANDOM W/MICROSCOPICon BACTERIA NONE SEEN Normal NONE SEEN [facility] Comment on above: Performed By: #### A 1C #### [facility] [address] [place] [address] Dr. Bebeto Alvarado Bilirubin Ql (U) Negative Normal NEGATIVE [facility] Comment on above: Performed By: #### A 1C #### [facility] [address] [place] [address] Dr. Bebeto Alvarado CAST NONE SEEN Normal NONE SEEN [facility] Comment on above: Performed By: #### A 1C #### [facility] [address] [place] [address] Dr. Bebeto Alvarado Clarity (U) CLEAR Normal CLEAR [facility] Comment on above: Performed By: #### A 1C #### [facility] [address] [place] [address] Dr. Bebeto Alvarado Color (U) YELLOW Normal YELLOW [facility] Comment on above: Performed By: #### A 1C #### [facility] [address] [place] [address] Dr. Bebeto Alvarado Crystals LM Nom (Urine sed) NONE SEEN Normal NONE SEEN [facility] Comment on above: Performed By: #### A 1C #### [facility] [address] [place] [address] Dr. Bebeto Alvarado Epithelial cells LM Ql (Urine sed) NONE SEEN Normal NONE SEEN /RARE [facility] Comment on above: Performed By: #### A 1C #### [facility] [address] [place] [address] Dr. Bebeto Alvarado Glucose Ql (U) Negative Normal NEGATIVE [facility] Comment on above: Performed By: #### A 1C #### [facility] [address] [place] [address] Dr. Bebeto Alvarado Hemoglobin Ql (U) Negative Normal NEGATIVE [facility] Comment on above: Performed By: #### A 1C #### [facility] [address] [place] [address] Dr. Bebeto Alvarado Ketones Ql (U) Negative Normal NEGATIVE [facility] Comment on above: Performed By: #### A 1C #### [facility] [address] [place] [address] Dr. Bebeto Alvarado LEUKOCYTES Negative Normal NEGATIVE [facility] Comment on above: Performed By: #### A 1C #### [facility] [address] [place] [address] Dr. Bebeto Alvarado MUCOUS NONE SEEN Normal NONE SEEN [facility] Comment on above: Performed By: #### A 1C #### [facility] [address] [place] [address] Dr. Bebeto Alvarado Nitrite Ql (U) Negative Normal NEGATIVE [facility] Comment on above: Performed By: #### A 1C #### [facility] [address] [place] [address] Dr. Bebeto Alvarado pH (U) 5.5 [pH] Normal 5-9 [facility] Comment on above: Performed By: #### A 1C #### [facility] [address] [place] [address] Dr. Bebeto Alvarado RBC NONE SEEN Abnormal 0-2 [facility] Comment on above: Performed By: #### A 1C #### [facility] [address] [place] [address] Dr. Bebeto Alvarado SPEC GRAVITY 1.030 Abnormal 1.005-<=1.02 5 [facility] Comment on above: Performed By: #### A 1C #### [facility] [address] [place] [address] Dr. Bebeto Alvaardo UA PROTEIN Negative Normal NEGATIVE/ TRACE [facility] Comment on above: Performed By: #### A 1C #### [facility] [address] [place] [address] Dr. Bebeto Alvarado Urobilinogen Qn (U) 0.2 {Katerin'U}/dL Normal 0.2 - 1. 0 [facility] Comment on above: Performed By: #### A 1C #### [facility] [address] [place] [address] Dr. Bebeto Alvarado WBC NONE SEEN Normal NONE SEEN [facility] Comment on above: Performed By: #### A 1C #### [facility] [address] [place] [address] Dr. Bebeto Alvarado VITAMIN B12on 07-25-2022 Cobalamin (Vitamin B12) [Mass/Vol] 1684.0 pg/mL Critically high 193.0-986.0 [facility] Comment on above: Performed By: #### V ITB12, IRON #### [facility] [address] [address] [address] Bebeto Alvarado PROF CHEM 8 (BAS METB)on Anion gap [Moles/Vol] 12.2 mmol/L Normal [facility] Comment on above: Performed By: #### B MP #### [facility] [address] [place] [address] Dr. Bebeto Alvarado Calcium [Mass/Vol] 8.9 mg/dL Normal 8.5-10.[address] [facility] Comment on above: Performed By: #### B MP #### [facility] [address] [place] [address] Dr. Bebeto Alvarado Chloride [Moles/Vol] 105 mmol/L Normal 98-107 [facility] Comment on above: Performed By: #### B MP #### [facility] [address] [place] [address] Dr. Bebeto Alvarado CO2 [Moles/Vol] 29.6 mmol/L Normal 21.0-32.0 [facility] Comment on above: Performed By: #### B MP #### [facility] [address] [place] [address] Dr. Bebeto Alvarado Creatinine [Mass/Vol] 0.95 mg/dL Normal 0.55-1.02 [facility] Comment on above: Performed By: #### B MP #### [facility] [address] [place] [address] Dr. Bebeto Alvarado EGFR-AF CITIZ[place] >60 Normal >=60 [facility] Comment on above: Performed By: #### B MP #### [facility] [address] [address] [address] Bebeto Alvarado EGFR-NON AF CITIZEN [place] 60 mL/min/1.73m2 Normal >=60 [facility] Comment on above: Performed By: #### B MP #### [facility] [address] [address] [address] Bebeto Alvarado Glucose [Mass/Vol] 101 mg/dL Normal 74-[address] [facility] Comment on above: Performed By: #### B MP #### [facility] [address] [address] [address] Bebeto Alvarado Potassium [Moles/Vol] 3.8 mmol/L Normal 3.5-5.1 [facility] Comment on above: Performed By: #### B MP #### [facility] [address] [address] [address] Bebeto Alvarado Sodium [Moles/Vol] 143 mmol/L Normal 136-[address] [facility] Comment on above: Performed By: #### B MP #### [facility] [address] [address] [address] Bebeto Alvarado Urea nitrogen [Mass/Vol] 16.0 mg/dL Normal 7.0-18.0 [facility] Comment on above: Performed By: #### B MP #### [facility] [address] [address] [address] Bebeto Alvarado Urea nitrogen/Creatinine [Mass ratio] 16.8 mg/mg Normal [facility] Comment on above: Performed By: #### B MP #### [facility] [address] [address] [address] Bebeto Alvarado CBC AUTO DIFFon 11-21-2021 BASO # 0.1 103/ul Normal 0.0-0.1 [facility] Comment on above: Performed By: #### A 1C #### [facility] [address] [address] [address] Bebeto Alvarado Basophils/100 WBC (Bld) 1.0 % Normal 0.2-2.0 [facility] Comment on above: Performed By: #### A 1C #### [facility] [address] [place] [address] Dr. Bebeto Alvarado EO # 0.2 103/ul Normal 0.0-0.7 [facility] Comment on above: Performed By: #### A 1C #### [facility] [address] [place] [address] Dr. Bebeto Alvarado Eosinophils/100 WBC (Bld) 3.3 % Normal 0.9-7.0 [facility] Comment on above: Performed By: #### A 1C #### [facility] [address] [place] [address] Dr. Bebeto Alvarado Erythrocyte distribution width (RBC) [Ratio] 13.8 % Normal 11.0-15.0 [facility] Comment on above: Performed By: #### A 1C #### [facility] [address] [place] [address] Dr. Bebeto Alvarado Hematocrit (Bld) [Volume fraction] 38.8 % Normal 36.0-48.0 [facility] Comment on above: Performed By: #### A 1C #### [facility] [address] [place] [address] Dr. Bebeto Alvarado Hemoglobin (Bld) [Mass/Vol] 12.5 g/dL Normal 12.0-16.0 [facility] Comment on above: Performed By: #### A 1C #### [facility] [address] [place] [address] Dr. Bebeto Alvarado IG # 0.02 10e3/ul Normal 0.00-0.03 [facility] Comment on above: Performed By: #### A 1C #### [facility] [address] [place] [address] Dr. Bebeto Alvarado IG % 0.3 % Normal 0.0-0.5 [facility] Comment on above: Performed By: #### A 1C #### [facility] [address] [place] [address] Dr. Bebeto Alvarado LYMPH # 1.9 103/ul Normal 1.2-3.8 [facility] Comment on above: Performed By: #### A 1C #### [facility] [address] [place] [address] Dr. Bebeto Alvarado Lymphocytes/100 WBC (Bld) 29.6 % Normal 20.5-60.0 [facility] Comment on above: Performed By: #### A 1C #### [facility] [address] [place] [address] Dr. Bebeto Alvarado MANUAL DIFF REQ NO Normal [facility] Comment on above: Performed By: #### A 1C #### [facility] [address] [place] [address] Dr. Bebeto Alvarado MCH (RBC) [Entitic mass] 28.0 pg Normal 26.7-34.0 [facility] Comment on above: Performed By: #### A 1C #### [facility] [address] [place] [address] Dr. Bebeto Alvarado MCHC (RBC) [Mass/Vol] 32.2 g/dL Normal 29.9-35.2 [facility] Comment on above: Performed By: #### A 1C #### [facility] [address] [place] [address] Dr. Bebeto Alvarado MCV (RBC) [Entitic vol] 86.8 fL Normal 81.0-99.0 [facility] Comment on above: Performed By: #### A 1C #### [facility] [address] [place] [address] Dr. Bebeto Alvarado MONO # 0.4 103/ul Normal 0.3-0.8 [facility] Comment on above: Performed By: #### A 1C #### [facility] [address] [place] [address] Dr. Bebeto Alvarado Monocytes/100 WBC (Bld) 5.7 % Normal 1.7-12.0 [facility] Comment on above: Performed By: #### A 1C #### [facility] [address] [place] [address] Dr. Bebeto Alvarado NEUT # 3.8 103/ul Normal 1.4-6.5 [facility] Comment on above: Performed By: #### A 1C #### [facility] [address] [address] [address] Bebeto Alvarado Neutrophils/100 WBC (Bld) 60.1 % Normal 43.0-75.0 [facility] Comment on above: Performed By: #### A 1C #### [facility] [address] [address] [address] Bebeto Alvarado Platelet mean volume (Bld) [Entitic vol] 11.0 fL Normal 9.5-13.5 [facility] Comment on above: Performed By: #### A 1C #### [facility] [address] [place] [address] Dr. Bebeto Alvarado PLT 264 103/ul Normal 150-450 [facility] Comment on above: Performed By: #### A 1C #### [facility] [address] [place] [address] Dr. Bebeto Alvarado RBC 4.47 106/ul Normal 4.20-5.40 [facility] Comment on above: Performed By: #### A 1C #### [facility] [address] [place] [address] Dr. Bebeto Alvarado WBC 6.3 103/ul Normal 4.0-11.0 [facility] Comment on above: Performed By: #### A 1C #### [facility] [address] [place] [address] Dr. Bebeto Alvarado GLYCOHEMOGLOBIN A1Con 2021 ADA RECOMMENDATION SEE BELOW Normal [facility] Comment on above: Result Comment: ADA RECOMMENDED LIMIT 4.0 - 6.0 ADA THERAPEUTIC TARGET < 7.0 ACTION SUGGESTED > 7.0 Performed By: #### A 1C #### [facility] [address] [place] [address] Dr. Bebeto Alvarado Glucose [Mass/Vol] 105 mg/dL Normal [facility] Comment on above: Performed By: #### A 1C #### [facility] [address] [place] [address] Dr. Bebeto Alvarado HbA1c (Bld) [Mass fraction] 5.3 % Normal 4.5-6.2 [facility] Comment on above: Performed By: #### A 1C #### [facility] [address] [address] [address] Bebeto Alvarado IRONon 11-21-2021 Iron [Mass/Vol] 59.0 ug/dL Normal 50.0-170.0 [facility] Comment on above: Performed By: #### A 1C #### [facility] [address] [address] [address] Bebeto Alvarado LIPID PROFILEon 11-21-2021 CHOL-HDL RATIO NORM SEE BELOW Normal [facility] Comment on above: Result Comment: 3.3 - 4.4 LOW RISK 4.4 - 7.1 AVERAGE RISK 7.1 - 11.0 MODERATE RISK >11.0 HIGH RISK Performed By: #### C MP, LIPID #### [facility] [address] [place] [address] Dr. Bebeto Alvarado Cholesterol [Mass/Vol] 139 mg/dL Normal <=200 [facility] Comment on above: Performed By: #### C MP, LIPID #### [facility] [address] [place] [address] Dr. Bebeto Alvarado Cholesterol in HDL [Mass/Vol] 35 mg/dL Critically low 40-60 [facility] Comment on above: Performed By: #### C MP, LIPID #### [facility] [address] [place] [address] Dr. Bebeto Alvarado Cholesterol in LDL [Mass/Vol] 69.6 mg/dL Normal [facility] Comment on above: Performed By: #### C MP, LIPID #### [facility] [address] [place] [address] Dr. Bebeto Alvarado Cholesterol.total/Chol esterol in HDL [Mass ratio] 4.0 {ratio} Normal [facility] Comment on above: Performed By: #### C MP, LIPID #### [facility] [address] [place] [address] Dr. Bebeto Alvarado HDL NORMAL > or = 60 mg/dl - LO W CARDIOVASCULAR RISK <40 mg/dl - HIGH CARDIOVASCULAR RISK Normal [facility] Comment on above: Performed By: #### C MP, LIPID #### [facility] [address] [address] [address] Bebeto Alvarado LDL CALC NORMAL SEE BELOW Normal [facility] Comment on above: Result Comment: <100 mg/dl OPTIMAL 100 - 129 mg/dl NEAR OR ABOVE OPTIMAL 130 - 159 mg/dl BORDERLINE HIGH 160 - 189 mg/dl HIGH >190 mg/dl VERY HIGH Performed By: #### C MP, LIPID #### [facility] [address] [address] [address] Bebeto Alvarado Triglyceride [Mass/Vol] 172 mg/dL Critically high <=150 [facility] Comment on above: Performed By: #### C MP, LIPID #### [facility] [address] [address] [address] Bebeto Alvarado VLDL CALC 34.4 mg/dL Normal [facility] Comment on above: Performed By: #### C MP, LIPID #### [facility] [address] [place] [address] Dr. Bebeto Alvarado PROF 14(COMP METB)on 022 Albumin [Mass/Vol] 3.8 g/dL Normal 3.4-5.[address] [facility] Comment on above: Performed By: #### C MP, LIPID #### [facility] [address] [place] [address] Dr. Bebeto Alvarado Albumin/Globulin [Mass ratio] 1.1 {ratio} Normal [facility] Comment on above: Performed By: #### C MP, LIPID #### [facility] [address] [place] [address] Dr. Bebeto Alvarado ALP [Catalytic activity/Vol] 96 U/L Normal 46-116 [facility] Comment on above: Performed By: #### C MP, LIPID #### [facility] [address] [address] [address] Bebeto Alvarado ALT [Catalytic activity/Vol] 25 U/L Normal 14-59 [facility] Comment on above: Performed By: #### C MP, LIPID #### [facility] [address] [address] [address] Bebeto Alvarado Anion gap [Moles/Vol] 11.8 mmol/L Normal Th [facility] Comment on above: Performed By: #### C MP, LIPID #### [facility] [address] [address] [address] Bebeto Alvarado AST [Catalytic activity/Vol] 20 U/L Normal 15-37 [facility] Comment on above: Performed By: #### C MP, LIPID #### [facility] [address] [address] [address] Bebeto Alvarado Bilirubin [Mass/Vol] 0.4 mg/dL Normal 0.2-1.0 [facility] Comment on above: Performed By: #### C MP, LIPID #### [facility] [address] [place] [address] Dr. Bebeto Alvarado Calcium [Mass/Vol] 8.8 mg/dL Normal 8.5-10.[address] [facility] Comment on above: Performed By: #### C MP, LIPID #### [facility] [address] [place] [address] Dr. Bebeto Alvarado Chloride [Moles/Vol] 106 mmol/L Normal 98-107 [facility] Comment on above: Performed By: #### C MP, LIPID #### [facility] [address] [place] [address] Dr. Bebeto Alvarado CO2 [Moles/Vol] 27.0 mmol/L Normal 21.0-32.0 [facility] Comment on above: Performed By: #### C MP, LIPID #### [facility] [address] [place] [address] Dr. Bebeto Alvarado Creatinine [Mass/Vol] 0.97 mg/dL Normal 0.55-1.02 [facility] Comment on above: Performed By: #### C MP, LIPID #### [facility] [facility] [address] [place] [address] Dr. Bebeto Alvarado EGFR-AF CITIZ[place] >60 Normal >=60 [facility] Comment on above: Performed By: #### C MP, LIPID #### [facility] [address] [place] [address] Dr. Bebeto Alvarado EGFR-NON AF CITIZEN [place] 59 mL/min/1.73m2 Critically low >=60 [facility] Comment on above: Performed By: #### C MP, LIPID #### [facility] [address] [address] [address] Bebeto Alvarado Globulin (S) [Mass/Vol] 3.4 g/dL Normal [facility] Comment on above: Performed By: #### C MP, LIPID #### [facility] [address] [address] [address] Bebeto Alvarado Glucose [Mass/Vol] 103 mg/dL Normal 74-[address] [facility] Comment on above: Performed By: #### C MP, LIPID #### [facility] [address] [address] [address] Bebeto Alvarado Potassium [Moles/Vol] 3.8 mmol/L Normal 3.5-5.1 [facility] Comment on above: Performed By: #### C MP, LIPID #### [facility] [address] [place] [address] Dr. Bebeto Alvarado Protein [Mass/Vol] 7.2 g/dL Normal 6.4-8.[address] [facility] Comment on above: Performed By: #### C MP, LIPID #### [facility] [address] [place] [address] Dr. Bebeto Alvarado Sodium [Moles/Vol] 141 mmol/L Normal 136-[address] [facility] Comment on above: Performed By: #### C MP, LIPID #### [facility] [address] [place] [address] Dr. Bebeto Alvarado Urea nitrogen [Mass/Vol] 11.0 mg/dL Normal 7.0-18.0 [facility] Comment on above: Performed By: #### C MP, LIPID #### [facility] [address] [place] [address] Dr. Bebeto Alvarado Urea nitrogen/Creatinine [Mass ratio] 11.3 mg/mg Normal [facility] Comment on above: Performed By: #### C MP, LIPID #### [facility] [address] [place] [address] Dr. Bebeto Alvarado URIC ACID SERUMon 11-21-2021 Urate [Mass/Vol] 7.3 mg/dL Critically high 2.6-6.0 [facility] Comment on above: Performed By: #### A 1C #### [facility] [address] [place], [place] [id number] Dr. Bebeto Alvarado VITAMIN B12on 11-21-2021 Cobalamin (Vitamin B12) [Mass/Vol] 2123.0 pg/mL Critically high 193.0-986.0 [facility] Comment on above: Performed By: #### A 1C #### [facility] [address] [place] [address] Dr. Bebeto Alvarado Physician Referralon 022 Physician Referral [phone] [id number]:[id number] Normal [facility] KNEE RIGHT 1 OR 2 VWSon KNEE RIGHT 1 OR 2 VWS [facility] Department of Radiology [address] [place] [id number] ======== Patient Name: MICHELLE BE : 1960 Sex: F Age: Race: White Pt. Location: Patient Status: O Ordered Date: 02/08/2019 10:40:00 AM Completed Date: 02/08/2019 10:38 AM Requesting Provider: AHSAN BINGHAM Attending Provider: AHSAN BINGHAM Report Copy To: Signs & Symptoms: S82.001A Unsp fracture of right patella, init for clos fx I10 History: [place] Comments: , , , Ordering Provider - [...] Electronically signed by:Debra Del Cid. Transcribed by: [email or web address], User Resident: Electronically Signed by: DEBRA DEL CID @ 02/08/2019 11:16 AM Normal [facility] Comment on above: Order Comment: , Mabel ws (X-RAY, KNEE): Radiologic Protocol , Weight Bearing?: N , With or Without Brace/Cast/Collar: With , Views (X-RAY, KNEE): Radiologic Protocol , Weight Bearing?: N , With or Without Brace/Cast/Collar: With , , , Ordering Provider - AHSAN BINGHAM PA-C , KNEE RIGHT 1 OR 2 [facility] KNEE RIGHT 1 OR 2 [facility] Department of Radiology [address] [place] [phone] ======== Patient Name: MICHELLE BE : [...] complications. Electronically signed by:Tomasz Stoll. Transcribed by: [email or web address], User Resident: Electronically Signed by: TOMASZ STOLL @ 12/07/2018 11:14 AM Normal [facility] Comment on above: Order Comment: , Vie ws (X-RAY, KNEE): Radiologic Protocol , Weight Bearing?: N , With or Without Brace/Cast/Collar: With , Views (X-RAY, KNEE): Radiologic Protocol , Weight Bearing?: N , With or Without Brace/Cast/Collar: With , , , Ordering Provider - AHSAN BINGHAM PA-C , KNEE RIGHT 1 OR 2 VWSon KNEE RIGHT 1 OR 2 [facility] Department of Radiology [address] [place] [phone] ======== Patient Name: MICHELLE BE : [...] , Exam: KNEE RIGHT 1 OR 2 [facility] ======== KNEE RIGHT 1 OR 2 [...] osteoarthritis Electronically signed by:Anup Ellison. Transcribed by: [email or web address], User Resident: Electronically Signed by: ANUP ELLISON @ 10/06/2018 02:48 PM Normal [facility] Comment on above: Order Comment: , Vie ws (X-RAY, KNEE): Radiologic Protocol , Weight Bearing?: N , With or Without Brace/Cast/Collar: With , Views (X-RAY, KNEE): Radiologic Protocol , Weight Bearing?: N , With or Without Brace/Cast/Collar: With , , , Ordering Provider - AHSAN BINGHAM PA-C , KNEE RIGHT 1 OR 2 [facility] 08-05 KNEE RIGHT 1 OR 2 [facility] Department of Radiology [address] [place] [phone] ======== Patient Name: MICHELLE BE : [...] effusion Electronically signed by:Anup Ellison. Transcribed by: [id number], User Resident: Electronically Signed by: ANUP ELLISON @ 08/26/2018 04:56 PM Normal [facility] Comment on above: Order [...] 07-06 KNEE RIGHT 1 OR 2 VWS [facility] Department of Radiology [address] [place] [phone] ======== Patient Name: MICHELLE BE : [...] compartment Electronically signed by:Anup Ellison. Transcribed by: [email or web address], User Resident: Electronically Signed by: ANUP ELLISON @ 07/29/2018 03:41 PM Normal [facility] Comment on above: Order Comment: , Mabel ws (X-RAY, KNEE): Radiologic Protocol , Weight Bearing?: N , With or Without Brace/Cast/Collar: With , Views (X-RAY, KNEE): Radiologic Protocol , Weight Bearing?: N , With or Without Brace/Cast/Collar: With , , , Ordering Provider - AHSAN BINGHAM PA-C , KNEE RIGHT 3 [facility] 9 KNEE RIGHT 3 [facility] Department of Radiology [address] [place] [phone] ======== Patient Name: MICHELLE BE : [...] knee Electronically signed by:Anup Ellison. Transcribed by: [email or web address], User Resident: Electronically Signed by: ANUP ELLISON @ 07/15/2018 03:31 PM Normal [facility] Comment on above: Order Comment: , Rossie ws (X-RAY, KNEE): Radiologic Protocol , Weight Bearing?: N , With or Without Brace/Cast/Collar: With , Views (X-RAY, KNEE): Radiologic Protocol , Weight Bearing?: N , With or Without Brace/Cast/Collar: With , , , Ordering Provider - AHSAN BINGHAM PA-C , Operative Reporton 9 Operative Report MR#: [id number] [facility] Pt. Name: Michelle Be Room [...] Duarte MD Date Trans: 07/03/2018 04:28 Monse/terry [id number] Normal [facility] *ANAEROBIC CULTUREon 019 *ANAEROBIC CULTURE Clinical Report: (D) Specimen/Source: SWAB/RT KNEE Collected: 07/02/2018 13:53 Status: Final Last Updated: 07/07/2018 08:02 CULT RES (Final) No Anaerobes Isolated 5 Days Normal [facility] Comment on above: Performed By: #### 3 0312 #### [address] *WOUND CULTUREon 07-02-2018 *WOUND CULTURE Clinical Report: (D) Specimen/Source: WOUND/INTRAOP SPEC Collected: 07/02/2018 13:53 Status: Final Last Updated: 07/07/2018 10:13 (1) #1 RT KNEE GRAM (Final) Rare Polys No Bacteria Seen CULT RES (Final) No Growth Day 5 Normal [facility] Comment on above: Order Comment: #1 RT KNEE Performed By: #### 3 0343 #### [address] KNEE RIGHT 1 OR 2 VWSon 06-05 KNEE RIGHT 1 OR 2 [facility] Department of Radiology [address] [place] [phone] ======== Patient Name: MICHELLE BE : [...] Electronically signed by:Debra Del Cid. Transcribed by: [email or web address], User Resident: Electronically Signed by: DEBRA DEL CID @ 07/02/2018 02:03 PM Normal [facility] Comment on above: Order Comment: ORIF VS PERCUTANEOUS FIXATION RIGHT PATELLA POC GLUCOSE LABon 07-02-2018 Glucose [Mass/Vol] 108 mg/dL High 70-100 [facility] Comment on above: Performed By: #### 8 5499 #### [facility] [address] [place] [address], [facility] APTTon 06-30-2018 aPTT Coag (Bld) [Time] 30.6 s Normal 25.0-35.0 [facility] Comment on above: [...] THIS PURPOSE. Performed By: #### 5 6101, 13[address] #### [facility] [address] [place] [address], [facility] BASIC METABOLIC PANELon 06-05 Calcium [Mass/Vol] 9.7 mg/dL Normal 8.6-10.3 [facility] Comment on above: Performed By: #### 0 0071 #### [facility] [address] [place] [address], [facility] Chloride [Moles/Vol] 102 mmol/L Normal 98-107 [facility] Comment on above: Performed By: #### 0 0071 #### [facility] [address] [place] [address], [place] CO2 [Moles/Vol] 28 mmol/L Normal 21-31 [facility] Comment on above: Performed By: #### 0 0071 #### [facility] [address] [place] [address], [facility] Creatinine [Mass/Vol] 1.20 mg/dL Normal 0.60-1.20 [facility] Comment on above: Performed By: #### 0 0071 #### [facility] [address] [place] [address], [place] GFR/1.73 sq M predicted among blacks MDRD (S/P/Bld) [Vol rate/Area] 56 ml/min/1.73sq m Abnormal >60 [facility] Comment on above: Performed By: #### 0 0071 #### [facility] [address] [place] [address], [place] GFR/1.73 sq M predicted among non-blacks MDRD (S/P/Bld) [Vol rate/Area] 47 ml/min/1.73sq m Abnormal >60 [facility] Comment on above: Performed By: #### 0 0071 #### [facility] [address] [place] [address], [place] Glucose [Mass/Vol] 97 mg/dL Normal 70-100 [facility] Comment on above: Performed By: #### 0 0071 #### [facility] [address] [place] [address], [place] Potassium [Moles/Vol] 4.1 mmol/L Normal 3.5-5.1 [facility] Comment on above: Performed By: #### 0 0071 #### [facility] [address] [place] [address], [place] Sodium [Moles/Vol] 137 mmol/L Normal 136-145 [facility] Comment on above: Performed By: #### 0 0071 #### [facility] [address] [place] [address], [place] Urea nitrogen [Mass/Vol] 19 mg/dL Normal 7-25 [facility] Comment on above: Performed By: #### 0 0071 #### [facility] [address] CBC W/DIFFon 06-30-2018 ABS BASOPHILS 0.1 10*3/uL Normal 0.0-0.2 [facility] Comment on above: Performed By: #### 5 0103 #### [facility] [address] ABS IMM GRANS 0.0 10*3/uL Normal 0.0-0.2 [facility] Comment on above: Performed By: #### 5 0103 #### [facility] [address] [place] [address], [facility] ABS NEUTROPHILS 6.4 10*3/uL Normal 1.6-7.6 [facility] Comment on above: Performed By: #### 5 0103 #### [facility] [address] Basophils/100 WBC (Bld) 0.7 % Normal 0.0-1.0 [facility] Comment on above: Performed By: #### 5 0103 #### [facility] [address] Eosinophils (Bld) [#/Vol] 0.2 10*3/uL Normal 0.0-0.5 [facility] Comment on above: Performed By: #### 5 0103 #### [facility] [address] [facility] [place] [address], [facility] Eosinophils/100 WBC (Bld) 1.5 % Normal 0.0-6.0 [facility] Comment on above: Performed By: #### 5 0103 #### [facility] [address] Erythrocyte distribution width (RBC) [Ratio] 14.4 % Normal 11.5-15.0 [facility] Comment on above: Performed By: #### 5 0103 #### [facility] [address] [facility] [place] [address], [facility] Hematocrit (Bld) [Volume fraction] 40.6 % Normal 36.0-45.0 [facility] Comment on above: Performed By: #### 5 0103 #### [facility] [address] [place] [address], [facility] Hemoglobin (Bld) [Mass/Vol] 13.3 g/dL Normal 12.0-15.0 [facility] Comment on above: Performed By: #### 5 0103 #### [facility] [address] [place] [address], [facility] IMMATURE GRANS 0.4 % Normal 0.0-1.0 [facility] Comment on above: Performed By: #### 5 0103 #### [facility] [address] [facility] [facility] Lymphocytes (Bld) [#/Vol] 2.6 10*3/uL Normal 1.2-4.0 [facility] Comment on above: Performed By: #### 5 0103 #### [facility] [address] [facility] [place] [address], [facility] Lymphocytes/100 WBC (Bld) 26.5 % Normal 20.0-45.0 [facility] Comment on above: Performed By: #### 5 0103 #### [facility] [address] [facility] [place] [address], [facility] MCH (RBC) [Entitic mass] 27.4 pg Normal 27.0-33.0 [facility] Comment on above: Performed By: #### 5 3 #### [facility] [address] [place] [address], [facility] MCHC (RBC) [Mass/Vol] 32.8 g/dL Normal 32.0-35.0 [facility] Comment on above: Performed By: #### 5 3 #### [facility] [address] [place] [address], [facility] MCV (RBC) [Entitic vol] 83.5 fL Normal 82.0-98.0 [facility] Comment on above: Performed By: #### 5 0103 #### [facility] [address] [place] [address], [facility] Monocytes (Bld) [#/Vol] 0.5 10*3/uL Normal 0.1-1.0 [facility] Comment on above: Performed By: #### 5 0103 #### [facility] [address] [place] [address], [facility] MONOS 5.0 % Normal 5.0-12.0 [facility] Comment on above: Performed By: #### 5 3 #### [facility] [address] [facility] [place] [address], [facility] Neutrophils/100 WBC (Bld) 65.9 % Normal 40.0-72.0 [facility] Comment on above: Performed By: #### 5 3 #### [facility] [address] [place] [address], [facility] Nucleated RBC/100 WBC (Bld) [Ratio] 0 % Normal 0-0 [facility] Comment on above: Performed By: #### 5 3 #### [facility] [address] [facility] [place] [address], [facility] PLAT CNT 290 10*3/uL Normal 150-400 [facility] Comment on above: Performed By: #### 5 3 #### [facility] [address] [place] [address], [facility] RBC (Bld) [#/Vol] 4.86 10*6/uL Normal 3.80-5.00 [facility] Comment on above: Performed By: #### 5 102 #### [facility] [address] [place] [address], [facility] WBC (Bld) [#/Vol] 9.68 10*3/uL Normal 4.00-10.60 [facility] Comment on above: Performed By: #### 5 0103 #### [address] [address], [facility] KNEE RIGHT 1 OR 2 VWSon 06-05 KNEE RIGHT 1 OR 2 VWS [facility] Department of Radiology [address] [place] [address] [place] [phone] ======== Patient Name: MICHELLE BE : [...] Electronically signed by:Debra Del Cid. Transcribed by: [email or web address], User Resident: Electronically Signed by: DEBRA DEL CID @ 06/30/2018 11:52 AM Normal [facility] Comment on above: [...] [Relative time] 0.98 {INR} Normal 0.91-1.16 [facility] Comment on above: Result Comment: [...] CHEST 1995;108:231S-246S. Performed By: #### 5 6101, [address] #### [address] PT Coag (PPP) [Time] 13.0 s Normal 12.3-14.8 [facility] Comment on above: Result Comment: ALL RESULTS MUST BE INTERPRETED WITH RESPECT TO BLOOD DRAWING ARTIFACT OR DILUTION ERROR OF ANTICOAGULANT AT THE TIME OF SAMPLING. Performed By: #### 5 6101, [address] #### [address] KNEE RIGHT 3 [facility] 9 KNEE RIGHT 3 [facility] Department of Radiology [address] [place] [phone] ======== Patient Name: MICHELLE BE : 1960 Sex: F Age: Race: White Pt. Location: Patient Status: O Ordered Date: 06/15/2018 1:35:00 PM Completed Date: 06/15/2018 01:34 PM Requesting Provider: AMPARO ZHANG Attending Provider: AMPARO ZHANG Report Copy To: ADELAIDA CARRION Signs & Symptoms: M17.11 Unilateral primary osteoarthritis, right knee I10 History: [place] Comments: , Weight Bearing?: Y , Weight Bearing?: Y , , , Ordering Mariela ZHANG PA-C , Exam: KNEE RIGHT 3 [...] effusion Electronically signed by:Anup Ellison. Transcribed by: [email or web address], User Resident: Electronically Signed by: ANUP ELLISON @ 06/15/2018 03:50 PM Normal [facility] Comment on above: Order Comment: , Isaiah ght Bearing?: Y , Weight Bearing?: Y , , , Ordering Mariela ZHANG PA-C , Vital Signs Date Time Vital Sign Value Performing Clinician Facility 03-10-2024 15:20-0500 Body height 162.6 cm Rachel REDDY Work Phone: [facility] 03-10-2024 15:20-0500 Body mass index (BMI) [Ratio] 48.41 kg/m2 Rcahel Hill PA Work Phone: [facility] 03-10-2024 15:20-0500 Body weight 127.91 kg Rachel Hill PA Work Phone: [facility] 03-10-2024 15:20-0500 Diastolic blood pressure 68 mm[Hg] Rachel Hill PA Work Phone: [facility] 03-10-2024 15:20-0500 Heart rate 74 /min Rachel Stephen PA Work Phone: [facility] 03-10-2024 15:20-0500 Respiratory rate 16 /min Rachel Stephen PA Work Phone: [facility] 03-10-2024 15:20-0500 SaO2% (BldA) [Mass fraction] 98 % Rachel Mitchell PA Work Phone: [facility] 03-10-2024 15:20-0500 Systolic blood pressure 102 mm[Hg] Rachel Mitchell PA Work Phone: [facility] 03-01-2024 12:48-0500 Body height 162.6 cm Juany Lowe PA Work Phone: [facility] 03-01-2024 12:48-0500 Body mass index (BMI) [Ratio] 48.92 kg/m2 Juany Lowe PA Work Phone: [facility] 03-01-2024 12:48-0500 Body weight 129.28 kg Juany Lowe PA Work Phone: [facility] 03-01-2024 12:48-0500 Diastolic blood pressure 88 mm[Hg] Juany Lowe PA Work Phone: [facility] 03-01-2024 12:48-0500 Systolic blood pressure 140 mm[Hg] Juany Lowe PA Work Phone: [place] [address] 11:18-0500 Body height 162.6 cm Adelaida Carrion NP Work Phone: [facility] 02-16-2024 11:18-0500 Body mass index (BMI) [Ratio] 50.77 kg/m2 Adelaida Carrion [employer] Work Phone: [facility] 02-16-2024 11:18-0500 Body temperature 98.49 [degF] Adelaida Iglesiasz [employer] Work Phone: [facility] 02-16-2024 11:18-0500 Body weight 134.17 kg Adelaidamonse Iglesiasz [employer] WORK[employer] Work Phone: [facility] 02-16-2024 11:18-0500 Diastolic blood pressure 82 mm[Hg] Adelaida Merryholz [employer] WORK[employer] Work Phone: [facility] 02-16-2024 11:18-0500 Heart rate 69 /min Adelaidamonse Iglesiasz [employer] WORK[employer] Work Phone: [facility] 02-16-2024 11:18-0500 Respiratory rate 20 /min Adelaidamonse Iglesiasz [employer] WORK[employer] Work Phone: [facility] 02-16-2024 11:18-0500 SaO2% (BldA) [Mass fraction] 98 % Adelaida Iglesiasz [employer] WORK[employer] Work Phone: [facility] 02-16-2024 11:18-0500 Systolic blood pressure 122 mm[Hg] Adelaida Iglesiasz [employer] WORK[employer] Work Phone: [facility] 01-28-2024 13:46-0400 Body height 162.6 cm Adelaida Iglesiasz [employer] WORK[employer] Work Phone: [facility] 01-28-2024 13:46-0400 Body mass index (BMI) [Ratio] 48.99 kg/m2 Adelaida Merryholz [employer] Work Phone: [facility] 01-28-2024 13:46-0400 Body temperature 98.71 [degF] Adelaida Sousaholz [employer] WORK[employer] Work Phone: [facility] 01-28-2024 13:46-0400 Body weight 129.46 kg Adelaida Yinghholz [employer] WORK[employer] Work Phone: [facility] 01-28-2024 13:46-0400 Diastolic blood pressure 78 mm[Hg] Adelaida Aichholz [employer] WORK[employer] Work Phone: [facility] 01-28-2024 13:46-0400 Heart rate 81 /min Adelaida Aichholz [employer] WORK[employer] Work Phone: [facility] 01-28-2024 13:46-0400 Respiratory rate 18 /min Adelaida Aichholz [employer] WORK[employer] Work Phone: [facility] 01-28-2024 13:46-0400 SaO2% (BldA) [Mass fraction] 99 % Adelaida Aichholz [employer] WORK[employer] Work Phone: [facility] 01-28-2024 13:46-0400 Systolic blood pressure 110 mm[Hg] Adelaida Aichholz [employer] WORK[employer] Work Phone: [facility] 05-18-2023 16:30-0500 Body height 162.6 cm Adelaida Aichholz [employer] WORK[employer] Work Phone: [facility] 05-18-2023 16:30-0500 Body mass index (BMI) [Ratio] 47.89 kg/m2 Adelaida Aichholz [employer] WORK[employer] Work Phone: [facility] 05-18-2023 16:30-0500 Body temperature 97.3 [degF] Adelaida Aichholz [employer] WORK[employer] Work Phone: [facility] 05-18-2023 16:30-0500 Body weight 126.55 kg Adelaida Aichholz [employer] WORK[employer] Work Phone: [facility] 05-18-2023 16:30-0500 Diastolic blood pressure 80 mm[Hg] Adelaida Aichholz [employer] WORK[employer] Work Phone: [facility] 05-18-2023 16:30-0500 Heart rate 76 /min Adelaida Aichholz [employer] WORK[employer] Work Phone: [facility] 05-18-2023 16:30-0500 Respiratory rate 19 /min Adelaida Aichholz [employer] WORK[employer] Work Phone: [facility] 05-18-2023 16:30-0500 SaO2% (BldA) [Mass fraction] 97 % Adelaida Aichholz [employer] WORK[employer] Work Phone: [facility] 05-18-2023 16:30-0500 Systolic blood pressure 134 mm[Hg] Adelaida Aichholz [employer] WORK[employer] Work Phone: [facility] 03-23-2023 12:10-0500 Diastolic blood pressure 98 mm[Hg] Adelaida Aichholz Work Phone: [facility] 03-23-2023 12:10-0500 Heart rate 76 /min Adelaida Aichholz Work Phone: [facility] 03-23-2023 12:10-0500 Respiratory rate 18 /min Adelaida Aichholz Work Phone: [facility] 03-23-2023 12:10-0500 SaO2% (BldA) [Mass fraction] 99 % Adelaida Aichholz Work Phone: [facility] 03-23-2023 12:10-0500 Systolic blood pressure 162 mm[Hg] Adelaida Aichholz Work Phone: [facility] 03-23-2023 10:53-0500 Body height 162.56 cm Adelaida Aichholz Work Phone: [facility] 03-23-2023 10:53-0500 Body weight 125.64 kg Adelaida Aichholz Work Phone: [facility] 12-19-2022 14:55-0400 Body height 162.56 cm Rosemary Kirkland Other [employer] [facility] [employer] Other 12-19-2022 14:55-0400 Body mass index (BMI) [Ratio] 47.85 kg/m2 Rosemary Kirkland Other [employer] Other 12-19-2022 14:55-0400 Body temperature 97.8 [degF] Rosemary Kirkland Other [employer] Other 12-19-2022 14:55-0400 Body weight 126.46 kg Rosemary Kirkland Other [employer] Other 12-19-2022 14:55-0400 Respiratory rate 20 /min Rosemary Kirkland Other [employer] Other 12-19-2022 14:55-0400 SaO2% (BldA) [Mass fraction] 95 % Rosemary Kirkland Other [employer] Other 11-20-2022 13:12-0400 Body temperature 97.7 [degF] Adelaida Aichholz Work Phone: [facility] 11-20-2022 13:12-0400 SaO2% (BldA) [Mass fraction] 96 % Adelaida Aichholz Work Phone: [facility] 11-20-2022 07:44-0400 Diastolic blood pressure 90 mm[Hg] Adelaida Aichholz Work Phone: [facility] 11-20-2022 07:44-0400 Heart rate 103 /min Adelaida Aichholz Work Phone: [facility] 11-20-2022 07:44-0400 Systolic blood pressure 152 mm[Hg] Adelaida Aichholz Work Phone: [facility] 11-19-2022 20:00-0400 Respiratory rate 18 /min Adelaida Aichholz Work Phone: [facility] 11-18-2022 15:18-0400 Body height 162.56 cm Adelaida Aichholz Work Phone: [facility] 11-17-2022 09:00-0400 Body weight 122.92 kg Adelaida Carrion Work Phone: [facility] Encounters Encounter Date Encounter Type Care Provider Facility Start: 03-16-2024 End: 03-16-2024 ambulatory ADELAIDA CARRION Not Available Start: 03-14-2024 End: 03-14-2024 Bamboo flowsheet David Foster PhD Work Phone: [facility] Start: 03-14-2024 End: 03-14-2024 Bamboo flowsheet David Foster PhD Work Phone: [facility] Start: 03-14-2024 End: 03-14-2024 ambulatory DAVID FOSTER Not Available Start: 03-14-2024 End: 03-14-2024 Patient encounter procedure David Foster PhD Work Phone: [facility] Comment on above: Altered mental statu s, unspecified altered mental status type (Primary Dx); Memory change; Concentration deficit; 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 (CMS/HCC); PTSD (post-traumatic stress disorder) (CMS/HCC); Bipolar affective disorder, remission status unspecified (CMS/HCC); Family history of dementia Start: 03-10-2024 End: 03-10-2024 Office outpatient visit 25 minutes Rachel REDDY Work Phone: [facility] Comment on above: Altered mental statu s, unspecified altered mental status type (Primary Dx); Restless leg; 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CMS/HCC); OSMANY (obstructive sleep apnea) Start: 03-10-2024 End: 03-10-2024 ambulatory RACHEL MITCHELL Not Available Start: 03-03-2024 End: 03-07-2024 Evaluation and management of inpatient Adelaida Carrion Facility:[facility] Start: 03-02-2024 End: 03-04-2024 Clinisync Result Encounter Generic External Data Provider [facility] External Department Unsolicited Start: 03-02-2024 End: 03-04-2024 Clinisync Result Encounter Generic External Data Provider [facility] External Department Unsolicited Start: 03-02-2024 End: 03-02-2024 Refill Adelaida Carrion BUNKER WORKER Work Phone: [facility] Comment on above: Yeast infection of t he skin Start: 03-01-2024 End: 03-01-2024 ambulatory JUANY LEGGETT Not Available Start: 03-01-2024 End: 03-01-2024 Office outpatient visit 25 minutes Juany REDDY Work Phone: [facility] [place] [address] [facility] Comment on above: Metabolic encephalop athy (Primary Dx); OSMANY (obstructive sleep apnea); Restless leg; 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 (CMS/HCC); Degeneration of intervertebral disc of lumbar region with discogenic back pain and lower extremity pain; Memory change Start: 02-28-2024 End: 02-29-2024 Refill Adelaida Carrion BUNKER WORKER Work Phone: [facility] Comment on above: Allergic rhinitis, u nspecified Start: 02-24-2024 End: 02-24-2024 Refill Adelaida Carrion BUNKER WORKER Work Phone: [facility] Comment on above: Essential (primary) hypertension (CMS/HCC); Allergic rhinitis, unspecified Start: 02-16-2024 End: 02-16-2024 Bamboo flowsheet Adelaida Carrion NP Work Phone: [facility] Start: 02-16-2024 End: 02-23-2024 Clinisync Result Encounter Adelaida Carrion BUNKER WORKER Work Phone: [facility] External Department Unsolicited Start: 02-16-2024 End: 02-23-2024 Clinisync Result Encounter Adelaida Carrion BUNKER WORKER Work Phone: [facility] External Department Unsolicited Start: 02-16-2024 End: 02-16-2024 Patient encounter procedure Adelaida Carrion NP Work Phone: [facility] Healthcare Start: 02-16-2024 End: 02-16-2024 Periodic preventive med est patient 40-64yrs Adelaida Carrion BUNKER WORKER Work Phone: [facility] Comment on above: Well woman exam with routine gynecological exam (Primary Dx); Morbid obesity (CMS/HCC) Start: 02-16-2024 End: 02-16-2024 ambulatory ADELAIDA CARRION Not Available Start: 02-04-2024 End: 02-04-2024 Refill Sonam Brown BUNKER WORKER Work Phone: [facility] [address] Comment on above: Restless leg Start: 01-28-2024 End: 01-28-2024 Bamboo flowsheet Adelaida Carrion BUNKER WORKER Work Phone: [facility] Start: 01-28-2024 End: 01-28-2024 Bamboo flowsheet Adelaida Carrion BUNKER WORKER Work Phone: [facility] Start: 01-28-2024 End: 01-28-2024 Office outpatient visit 15 minutes Adelaida Carrion BUNKER WORKER Work Phone: [facility] Comment on above: Acute cystitis witho ut hematuria (Primary Dx); Tobacco dependence; Needs flu shot; Morbid obesity (CMS/HCC) Start: 01-28-2024 End: 01-28-2024 ambulatory ADELAIDA CARRION Not Available Start: 01-25-2024 End: 01-25-2024 ambulatory Syeda Mancuso MD Facility:[facility] Start: 01-21-2024 End: 01-25-2024 Clinisync Result Encounter Generic External Data Provider [facility] External Department Unsolicited Start: 01-21-2024 End: 01-25-2024 Clinisync Result Encounter Generic External Data Provider [facility] External Department Unsolicited Start: 01-06-2024 ambulatory Adelaida Carrion Facilit y:[facility] Start: 01-05-2024 End: 01-05-2024 Clinisync Result Encounter Adelaida Carrion BUNKER WORKER Work Phone: [facility] External Department Unsolicited Start: 01-05-2024 End: 01-05-2024 Clinisync Result Encounter Adelaida Carrion BUNKER WORKER Work Phone: [facility] External Department Unsolicited Start: 01-04-2024 End: 01-04-2024 ambulatory ADELAIDA AICHHOLZ Not Available Start: 12-09-2023 End: 12-09-2023 ambulatory JUANY CABALLERO Not Available Start: 12-08-2023 End: 12-08-2023 ambulatory [...] 06-29-2023 End: 06-29-2023 ambulatory Syeda Mancuso MD Facility:[facility] Start: 05-22-2023 End: 05-22-2023 ambulatory ASHLEIGH HINES Not Available Start: 05-21-2023 Refill Adelaida Carrion BUNKER WORKER Work Phone: [facility] Comment on above: Acute cystitis with hematuria (Primary Dx) Start: 05-18-2023 End: 05-18-2023 Office outpatient visit 25 minutes Adelaida Carrion BUNKER WORKER Work Phone: [facility] Comment on above: Encounter for annual [...] Available Start: 05-18-2023 Bamboo flowsheet Adelaida Carrion BUNKER WORKER Work Phone: [facility] Start: 05-18-2023 Bamboo flowsheet Adelaida Carrion BUNKER WORKER Work Phone: [facility] Start: 05-18-2023 End: 05-18-2023 Patient encounter procedure Adelaida Carrion BUNKER WORKER Work Phone: [facility] Healthcare Start: 03-25-2023 End: 03-25-2023 ambulatory ADELAIDA CARRION Not Available Start: 03-23-2023 End: 03-23-2023 Admission to same day surgery center Adelaida Carrion Work Phone: [facility] Work Phone: Start: 03-23-2023 End: 03-23-2023 ambulatory Adelaida Carrion Work Phone: 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 Work Phone: Start: 09-04-2022 ambulatory ARIAN Banegas Facili ty:H1 Start: 08-26-2022 ambulatory NARENDRANATH LAKSHMIPATHY . Facility:H1 Start: 08-08-2022 End: 08-09-2022 ambulatory CHARGEBACK SPECIALIST ADELAIDA FRANCIEZ Facility:H1 Start: 07-25-2022 End: 07-26-2022 ambulatory CHARGEBACK SPECIALIST ADELAIDA AICHHOLZ Facility:H1 Start: 07-15-2022 End: 07-15-2022 ambulatory NARENDRANATH LAKSHMIPATHY . Facility:H1 Start: 07-11-2022 ambulatory NARENDRANATH LAKSHMIPATHY . Facility:[facility]1 Start: 06-26-2022 End: 06-27-[address] FINA ZIMMER . Facility:[facility]1 Start: 06-11-2022 ambulatory CHARGEBACK SPECIALIST ADELAIDA SHEYLA Facil ity:H1 Start: 05-21-2022 End: 06-11-2022 ambulatory CHARGEBACK SPECIALIST ADELAIDA FRANCIEZ Facility:H1 Start: 05-08-2022 End: 05-09-2022 ambulatory CHARGEBACK SPECIALIST ADELAIDA SHEYLA Facility:H1 Start: 04-28-2022 End: 04-28-2022 ambulatory CHARGEBACK SPECIALIST ADELAIDA SHEYLA Facility:H1 Start: 04-03-2022 End: 04-04-[address] FINA ZIMMER . Facility:H1 Start: 03-19-2022 End: 03-20-2022 ambulatory CHARGEBACK SPECIALIST ADELAIDA MERRYGERONIMONena Facility:H1 Start: 02-20-2022 End: 02-20-2022 ambulatory GILMER NEVES Facility:H1 Start: 01-10-2022 End: 02-12-2022 ambulatory BRIDGETTE MACEDO Facility:H1 Start: 01-02-2022 End: 01-03-[address] FINA ZIMMER . Facility:H1 Start: 01-01-2022 End: 01-02-2022 ambulatory BRIDGETTE MACEDO Facility:H1 Start: 12-16-2021 End: 12-16-2021 ambulatory CHARGEBACK SPECIALIST ADELAIDA SHEYLA Facility:H1 Start: 11-21-2021 End: 11-22-[address] DOCTOR BERGERON Facility:H1 Start: 10-03-2021 End: 10-04-[address] FINA ZIMMER . Facility:H1 Start: 09-19-[address] FINA ZIMMER . Faci lity:H1 Start: 09-12-2021 End: 09-12-2021 ambulatory CHARGEBACK SPECIALIST ADELAIDA CARRION Facility:H1 Start: 08-20-2021 End: 08-20-[address] FINA ZIMMER . Facility:H1 Start: 07-02-2018 End: 07-03-2018 Patient encounter procedure SUKI EBRAHEIM Facility:[facility] Procedures Date Procedure Procedure Detail Performing Clinician Start: 03-02-2024 BLOOD CULTURE 1 Generic External Data Provider Start: 02-16-2024 IGP,APTIMA HPV,AGE GDLN Adelaida Carrion BUNKER WORKER Work Phone: Start: 01-28-2024 Urnls dip stick/tabl et rgnt non-auto w/o micrscp Adelaida Carrion BUNKER WORKER Work Phone: Start: 01-21-2024 MHPT CULT,URINE Generic External Data Provider Start: 01-05-2024 ALL BASIC METABOLIC PANEL Adelaida Carrion BUNKER WORKER Work Phone: Start: 09-18-2023 Mammography Adelaida ramos BUNKER WORKER Work Phone: Start: 03-23-2023 Screening colonoscopy L oneal Carrion Work Phone: Start: 03-23-2023 Colonoscopy Adelaida ramos BUNKER WORKER Work Phone: Start: 09-15-2022 Mammography Adelaida ramos BUNKER WORKER Work Phone: Start: 08-28-2022 Microscopic observat ion [Identifier] in Cervix by Cyto stain Adelaida Carrion BUNKER WORKER Work Phone: Start: 07-02-2018 ANESTH KNEE AREA SURGERY CHAPARRITA HENDRICKS Start: 07-02-2018 REMOVAL OF SUPPORT IMPLANT SUKI ESCALANTE Start: 07-02-2018 TREAT KNEECAP FRACTURE SUKI EBSANDRA Plan of Treatment Date Care Activity Detail Author Start: 03-23-2033 Screening for malignant neoplasm of colon [facility] Start: 08-28-2025 Screening for malignant neoplasm of cervix [facility] Start: 02-15-2025 Medicare Annual Wellness (AWV) Medicare Annual Wellness (AWV) [facility] Start: 09-17-2024 Screening for malignant neoplasm of breast Mammogram [facility] Start: 06-22-2024 End: 06-22-2024 Patient encounter procedure 06/22/2024 11:20 AM EDT Office Visit [facility] [place] [facility] [address] [place] [address] Juany Leggett PA [address] [place] [address] [facility] Start: 05-18-2024 Medicare Annual Wellness (AWV) Medicare Annual Wellness (AWV) [facility] Start: 04-07-2024 End: 04-07-2024 Patient encounter procedure 04/07/2024 12:30 PM EST [facility] [address] [id number] [facility] Start: 04-04-2024 End: 04-04-2024 Patient encounter procedure 04/04/2024 1:20 PM EST Office Visit [facility] [address] [place] [address] Adelaida Carrion NP [address] [place] [address] [facility] Start: 03-22-2024 End: 03-22-2024 Clinical Support 03/22/2024 10:00 AM EST Clinical Support [facility] [address] [place] [phone] [facility] Start: 03-16-2024 End: 03-16-2024 Patient encounter procedure 03/16/2024 10:00 AM EST Office Visit [facility] [address] [place] [phone] Adelaida Carrion, BRIANA [address] [place] [address] [facility] Start: 03-14-2024 End: 03-14-2024 Patient encounter procedure 03/14/2024 10:00 AM EST Office Visit [facility] [facility] [address] [place] [address] David Foster, PhD [address] [place], [place] [phone] [facility] Start: 03-11-2024 End: 03-11-2025 EEG 2 Hour Routine EEG 2 Hour Routine Neurology Routine Altered mental status, unspecified altered mental status type Expected: 03/11/2024 (Approximate), Expires: 03/11/2025 [facility] Work Phone: Comment on above: Expected: 03/11/2024 (Approximate), Expires: 03/11/2025 Start: 03-10-2024 End: 03-10-2024 Patient encounter procedure 03/10/2024 3:40 PM EST Office Visit [facility] [address] [place] [address] Rachel Mitchell PA [address] [place], [place] [phone] [facility] Start: 03-01-2024 End: 03-01-2024 Patient encounter procedure 03/01/2024 12:00 PM EST Office Visit [facility] [place] [address] [facility] [address] [place] [address] Juany Leggett PA [address] [place], [place] [phone] [facility] [place] [facility] Start: 02-29-2024 End: 02-29-2024 Patient encounter procedure 02/29/2024 2:40 PM EST Office Visit [facility] [place] [address] [facility] [place] [address] Sonam Brown, BUNKER WORKER [address] [place] [address] [facility] [place] [address] Start: 02-16-2024 End: 02-15-2025 THIN PREP TIS PAP AND HR HPV DNA THIN PREP TIS PAP AND HR HPV DNA Pathology and Cytology Routine Well woman exam with routine gynecological exam Expected: 02/16/2024 (Approximate), Expires: 02/15/2025 [facility] Work Phone: Comment on above: Expected: 02/16/2024 (Approximate), Expires: 02/15/2025 Start: 02-16-2024 End: 02-16-2024 Patient encounter procedure 02/16/2024 11:30 AM EST [facility] [address] [place] [address] Adelaida Carrion, BRIANA [address] [place] [address] [facility] Start: 02-04-2024 Influenza vaccination Influenza Vacc ine (#1) [facility] Comment on above: Postponed from 12/05 (Patient Does Not Have Time) Start: 01-28-2024 End: 01-27-2025 URINARY TRACT INFECTION (HTRX) URINARY TRACT INFECTION (HTRX) Lab Routine Acute cystitis without hematuria Expected: 01/28/2024 (Approximate), Expires: 01/27/2025 [facility] Work Phone: Comment on above: Expected: 01/28/2024 (Approximate), Expires: 01/27/2025 Start: 01-28-2024 End: 01-28-2024 Patient encounter procedure [facility] Comment on above: Tobacco dependence ( Primary Dx) Start: 09-16-2023 Screening for malignant neoplasm of breast Mammogram [facility] Start: 08-17-2023 End: 08-17-2023 Patient encounter procedure 08/17/2023 9:20 AM EDT Office Visit [facility] [address] [place] [address] Adelaida Carrion, BRIANA [address] [place] [phone] [facility] Start: 05-22-2023 End: 05-22-2023 Patient encounter procedure 05/22/2023 8:45 AM EST Office Visit [facility] [address] [facility] [address] [place] [address] Ashleigh Hines PA [address] [facility] [address] [place] [address] [facility] Start: 05-18-2023 End: 05-18-2023 Patient encounter procedure 05/18/2023 4:30 PM EST Office Visit [facility] [address] [place] [address] Adelaida Carrion, BRIANA [address] [place] [phone] Arrived [facility] Comment on above: Arrived Start: 05-18-2023 End: 05-18-2024 XR Hip - left 3 Views XR hip left 2 or 3 views Imaging Routine Left hip pain Expected: 05/18/2023 (Approximate), Expires: 05/18/2024 [facility] Work Phone: Comment on above: Expected: 05/18/2023 (Approximate), Expires: 05/18/2024 Start: 03-23-2023 [facility] Start: 11-20-2022 [facility] Start: 11-18-2022 Referral to clinical caseworker intake [facility] Start: 11-17-2022 Hospital admission [facility] Start: 11-17-2022 [facility] Start: 12-06-1991 Screening for malignant neoplasm of cervix HPV/Cotest [facility] Start: 1960 Medicare Annual Wellness (AWV) Medicare Annual Wellness (AWV) [facility] Start: 1960 Screening for malignant neoplasm of colon [facility] BLOOD CULTURE 1 BLOOD CULTURE 1 Lab Routine 03/02/2024 3:20 AM EST [facility] Patient Education [facility] Work Phone: Patient referral [facility] Work Phone: [facility] Immunizations Immunization Date Immunization Notes Care Provider Fa catalina 01-28-2024 Influenza, injectabl e, Madin [place] Canine Kidney, preservative free, quadrivalent Adelaida Aichholz BUNKER WORKER Work Phone: [facility] 08-17-2023 zoster vaccine recombinant Adelaida Aichholz BUNKER WORKER Work Phone: [facility] 02-13-2023 influenza, injectabl e, quadrivalent, preservative free Adelaida Aichholz BUNKER WORKER Work Phone: [facility] 02-13-2023 SARS-COV-2 (COVID-19 ) vaccine, mRNA, spike protein, LNP, PF, 50 mcg/0.5 mL Adelaida Aichholz BUNKER WORKER Work Phone: [facility] 02-13-2023 influenza virus vaccine, unspecified formulation Adelaida Aichholz BUNKER WORKER Work Phone: [facility] 02-19-2022 diphtheria, tetanus toxoids and pertussis vaccine Adelaida Aichholz BUNKER WORKER Work Phone: [facility] 03-02-2021 Moderna SARS-CoV-2 Vaccination Adelaida Aichholz BUNKER WORKER Work Phone: [facility] 08-24-2020 Moderna SARS-CoV-2 Vaccination Adelaida Aichholz BUNKER WORKER Work Phone: [facility] 07-27-2020 Moderna SARS-CoV-2 Vaccination Adelaida Aichholz BUNKER WORKER Work Phone: [facility] 05-28-2018 influenza, injectabl e, quadrivalent, preservative free Adelaida Aichholz Work Phone: [facility] 2017 pneumococcal conjuga te vaccine, 13 valent Adelaida Sheyla BUNKER WORKER Work Phone: [facility] Payers Date Payer Category Payer Private Health Insurance [id number] 2022 Self-pay [id number] 2022 Medicare [id number] 2022 Medicare (Managed Care) [facility] [place] [address] [id number] 2008 Unknown [id number] 1961 Unknown [id number] 2.840.1.126500.3.579.2 .647 1961 Unknown [id number] 2.16.840.1.518389.3.579.2 .593 1961 Unknown [id number] 2.16.840.1.189254.3.579.2 .593 1961 Unknown [id number] 2.16840.1.699650.3.579.2 .593 1961 Unknown [id number] 2.16840.1.591767.3.579.2 .593 1961 Unknown [id number] 2.16.840.1.086746.3.579.2 .593 1961 Unknown [id number] 2.16.840.1.185676.3.579.2 .593 1961 Unknown [id number] 2.16.840.1.961812.3.579.2 .593 1961 Unknown [id number] 2.16.840.1.910296.3.579.2 .593 1961 Unknown [id number] 2.16.840.1.599436.3.579.2 .593 1961 Unknown [id number] 2.16.840.1.237724.3.579.2 .593 1961 Unknown [id number] 2.16.840.1.617573.3.579.2 .593 1961 Unknown [id number] 2.16.840.1.627211.3.579.2 .593 1961 Unknown [id number] 2.16.840.1.144197.3.579.2 .593 1961 Unknown [id number] 2.16.840.1.263620.3.579.2 .593 1961 Unknown [id number] 2.16.840.1.287101.3.579.2 .593 1961 Unknown [id number] 2.16.840.1.474412.3.579.2 .593 1961 Unknown [id number] 2.16.840.1.025837.3.579.2 .593 1961 Unknown [id number] 2.16.840.1.545967.3.579.2 .593 1961 Unknown [id number] 2.16.840.1.640572.3.579.2 .593 1961 Unknown [id number] 2.16.840.1.416519.3.579.2 .593 1961 Unknown [id number] 2.16.840.1.474236.3.579.2 .593 1961 Unknown [id number] 2.16.840.1.872951.3.579.2 .593 1961 Unknown [id number] 2.16.840.1.842052.3.579.2 .593 1961 Unknown [id number] 2.16.840.1.431151.3.579.2 .593 1961 Unknown [id number] 2.16.840.1.848814.3.579.2 .196 1961 Unknown [id number] 2.16.840.1.137915.3.579.2 .196 1961 Unknown [id number] 2.16.840.1.892053.3.579.2 .1258 1961 Unknown [id number] 2.16.840.1.526470.3.579.2 .1258 1961 Unknown [id number] 2.16.840.1.740895.3.579.2 .1258 1961 Unknown [id number] 2.16.840.1.402458.3.579.2 .1258 1961 Unknown [id number] 2.16.840.1.557637.3.579.2 .1258 1961 Unknown [id number] 2.16.840.1.649719.3.579.2 .125 1961 Unknown [id number] 2.16.840.1.115624.3.579.2 .1258 1961 Unknown [id number] 2.16.840.1.847824.3.579.2 .1258 1961 Unknown [id number] 2.16.840.1.245774.3.579.2 .125 1961 Unknown [id number] 2.16.840.1.943585.3.579.2 .1258 1961 Unknown [id number] 2.16.840.1.200484.3.579.2 .1258 1961 Unknown [id number] 2.16.840.1.014905.3.579.2 .1258 1961 Unknown [id number] 2.16.840.1.680796.3.579.2 .1258 1961 Unknown [id number] 2.16.840.1.338386.3.579.2 .1258 1961 Unknown [id number] 2.16.840.1.270407.3.579.2 .1258 1961 Unknown [id number] 2.16.840.1.150272.3.579.2 .1258 1961 Unknown [id number] 2.16.840.1.292377.3.579.2 .1258 1961 Unknown [id number] 2.16.840.1.297349.3.579.2 .1258 1961 Unknown [id number] 2.16.840.1.203411.3.579.2 .9 1959 Medicare [id number] 1959 Unknown [id number] Medicare Medicare [id number] Unknown [id number] 2.16.840.1.405424.3.579.2 .531 Unknown [id number] 2.16840.1.565647.3.579.2 .531 Unknown [id number] 2.16840.1.960383.3.579.2 .531 Social History Date Type Detail Facility Start: 11-18-2022 End: 10-14-2023 Tobacco smoking status NHIS Ex-smoker (finding) [facility] Start: 1960 Sex Assigned At Female [facility] Start: 03-25-2023 End: 08-16-2023 Sex Assigned At [facility] Start: 04-06-1976 End: 04-06-2016 History of tobacco use Current smoker [facility] Start: 04-06-1976 End: 04-06-2016 History of tobacco use Cigarette Smoker [facility] Start: 02-09-2023 End: 08-16-2023 Cigarettes smoked current (pack per day) - Reported 1 [facility] Start: 02-09-2023 End: 10-14-2023 Tobacco use and exposure Smokeless tobacco non-user [facility] Start: 05-18-2023 End: 03-10-2024 Alcohol intake Lifetime non-drinker (finding) [facility] Start: 11-13-2022 Alcohol Comment caffeine intake: 1-2 cups per day. [facility] Start: 10-01-2022 Gender identity Identifies as [...] Facility 11-20-2022 Functional status Patient at Baseline [facility] Work Phone: Mental Status Date Assessment Result Facility 11-20-2022 Cognitive function Cognitive Sta tus Patient is Progressing Toward Baseline [facility] Work Phone: Clinical Notes 10-03-2021 to 03-14-2024 David Foster, PhD - 03/14/2024 10:00 AM VALERIE LIRA - 02/16/2024 11:30 AM Mynor Carrion NP - 02/16/2024 11:30 AM Mynor Carrion NP - 02/16/2024 6:58 AM EST Note Date & Type Note Facility 03-14-2024 History of Present illness Narrative Images from the original note were not included. David Foster, PhD NEUROBEHAVIORAL STATUS EXAMINATION Michelle Be is a 63 y.o. female referred for neuropsychological evaluation to assist with facilitating and informing medical differential diagnosis and clinical decision-making. The following information was obtained during an interview with the patient, , and daughter (via speaker phone), as well as review of available records. PRESENTING PROBLEM AND HISTORY Decline in memory over the past 13-14 years after being started on Topamax. Also recently hospitalized with altered mental status. Feels she is back to her baseline struggles with cognition which include difficulty focusing while watching television and when attempting to read, forgetting conversations, repeating self, misplacing items on the home, as well as mild word retrieval problems. Despite these concerns, she was a very detailed historian throughout the interview. Remains independent in ADLs and household responsibilities. manages finances as before. has been supervising medication and daughter has become involved as well, establishing a spreadsheet to assist with monitoring patients overall health status. No driving since earlier this year. Had previously been only driving in town familiar destinations. No exercise. Socially more of a homebody. 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 Diagnosed with OSMANY and RLS, wears CPAP nightly. Pain complaints include fibromyalgia and degenerative disc disease. Also has prior history of migraines which have resolved over the past 17 years. Neurological history includes small left thalamic stroke in 2016. MoCA /30. Patient accurately recalled this screening measure as well as her overall performance and score on it. Admitted to [facility] from the [facility] on 08/24/2023 with acute respiratory failure and confusion thought to be secondary to metabolic encephalopathy. Previous LTME in August 2023 negative. Recently evaluated at [facility] on 03/02/2024 for severe encephalopathy. Brain MRI with and without contrast revealed small persistent left thalamic lesion and diffuse atrophy, greatest along the frontal and temporal lobes. Routine EEG was abnormal due to mild background slowing, intermittent bifrontal slowing, equivocal asynchronous temporal lobe discharges. Family neurological history includes dementia (father). Psychiatric history notable for PTSD, bipolar disorder, and depression. Involved with a psychiatric nurse practitioner. Reported that her psychotropic medication dosages have recently been reduced. Denied any history of alcohol/substance abuse. Reformed smoker. Creek language Turkmen. Reported relocating from [place] to [place] in 2011. Completed a bachelors degree. 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 Currently on disability. Resides with of 26 years along with her son, grandson, and 2 dogs. Has 2 children from a prior relationship. MEDICAL HISTORY/MEDICATION: Past Medical History: Diagnosis Date Abnormal mammogram [...] of right breast Hemiparesis (CMS/HCC) Hemiparesis, right (CMS/HCC) Hemorrhoid int/external hemorrhoids Hiatal hernia Iron deficiency Left foot pain 03/25/2023 Lower extremity edema Mood disorder ([facility]) mixed mood disorder OSMANY (obstructive sleep apnea) Osteoporosis ([facility]) Overactive bladder Pre-diabetes Primary hypertension ([facility]) 03/25/2023 PTSD (post-traumatic stress disorder) ([facility]) Restless leg Right knee pain Right sided weakness S/P bariatric surgery Shingles Slurred speech Stroke ([facility]) 2018 Tenosynovitis, de Quervain Thoracic back pain, unspecified back pain laterality, unspecified chronicity Tobacco dependence Vertigo, benign paroxysmal Yeast infection of the skin 05/18/2023 MEDICATIONS: Current Outpatient Medications Medication Instructions amLODIPine (NORVASC) 10 mg, Oral, Daily biotin 5 MG tablet Pt taking OTC ([employer]) Calcium Citrate-Vitamin D (CITRACAL + D PO) Pt taking OTC ([employer]) carvedilol (COREG) 12.5 mg, Oral, 2 times daily with meals cetirizine (ZYRTEC) 10 mg, Oral, Daily clonazePAM (KLONOPIN) 0.5 mg, Oral, 2 times daily DULoxetine (CYMBALTA) 60 mg, Oral, 2 times daily, Do not crush or chew. fluconazole (Diflucan) 100 MG tablet fluconazole (Diflucan) 150 MG tablet 1 pill every 3 days for a total of 3 doses fluticasone (Flonase) 50 MCG/ACT nasal spray 2 sprays, Each Nostril, Daily gabapentin (NEURONTIN) 300 mg, Oral, 2 times daily, Due 03/11/24 losartan (COZAAR) 100 mg, Oral, Daily Magnesium 400 MG capsule Pt taking OTC(Viewpoints) Melatonin 12 MG tablet 1 tablet, Oral, Nightly Multiple Vitamins-Minerals (BARIATRIC MULTIVITAMINS/IRON PO) Pt taking OTC ([employer]) nystatin (Mycostatin) 113086 UNIT/GM powder 1 application , Topical, 2 times daily nystatin (Mycostatin) cream OLANZapine (ZyPREXA) 5 MG tablet TAKE 1/2 (ONE-HALF) OF A TABLET BY MOUTH EVERY 6 HOURS NEEDED omeprazole (PRILOSEC) 20 mg, Oral, Daily before breakfast rOPINIRole (REQUIP) 4 mg, Oral, Nightly spironolactone (ALDACTONE) 50 mg, Oral, Daily sulfamethoxazole-trimethoprim (Bactrim DS) 800-160 MG per tablet 1 tablet, 2 times daily tiZANidine (ZANAFLEX) 4 mg, Oral, Every 8 hours PRN, 1-2 tablets traZODone (DESYREL) 150 mg, Oral, Nightly Vraylar 3 MG capsule INITIAL IMPRESSION AND PLAN: Altered mental status, memory loss, concentration deficit, remote small left thalamic stroke, PTSD, bipolar disorder, and family history of dementia: The patient will be scheduled for neuropsychological assessment, which will include tests for memory, reasoning, language, problem-solving, attention, and mood. Thank you for allowing me to participate in the care of this individual. Please contact me with any questions at [phone]. documented in this encounter [facility] 02-16-2024 History of Present illness Narrative Pt [...] biotin 5 MG tablet Pt taking OTC (Niupai) Calcium Citrate-Vitamin D (CITRACAL + D PO) Pt taking OTC ([facility]) carvedilol (COREG) 12.5 mg, Oral, 2 times [...] Magnesium 400 MG capsule Pt taking OTC([facility]) Melatonin 12 MG tablet 1 tablet, Oral, Nightly Multiple Vitamins-Minerals (BARIATRIC MULTIVITAMINS/IRON PO) Pt taking OTC ([facility]) nystatin (Mycostatin) 490388 UNIT/GM powder 1 application , Topical, 2 [...] Anxiety 05/18/2023 Bipolar disorder with severe depression ([facility]) 05/18/2023 Brain lesion Brain vascular malformation Chronic pain disorder Closed fracture of patella 02/04/2018 Colon polyps Constipation Degenerative cervical disc Degenerative lumbar disc Depression ([facility]) 05/18/2023 Diastolic dysfunction Dizziness 05/18/2023 Dysphagia Fibromyalgia Fibromyalgia Gastrocnemius equinus GERD (gastroesophageal reflux disease) Heart murmur Hematoma of right breast Hemiparesis ([facility]) Hemiparesis, right ([facility]) Hemorrhoid int/external hemorrhoids Hiatal hernia Iron deficiency Left foot pain 03/25/2023 Lower extremity edema Mood disorder ([facility]) mixed mood disorder OSMANY (obstructive sleep apnea) Osteoporosis ([facility]) Overactive bladder Pre-diabetes Primary hypertension ([facility]) 03/25/2023 PTSD (post-traumatic stress disorder) ([facility]) Restless leg Right knee pain Right sided weakness S/P bariatric surgery Shingles Slurred speech Stroke ([facility]) 2018 Tenosynovitis, de Quervain Thoracic back [...] nursing note reviewed. Exam conducted with a rn nicu present. Constitutional: General: She is not in [...] chronic conditions allow documented in this encounter [facility] 01-28-2024 History of Present illness Narrative Associated [...] ER fu for UTI and dehydration. See [facility] for HPI Was sent home on Bactrim. Feels completely fine now, no fever, chills, malodorous urine, no constipation diarrhea or abd pain SUBJECTIVE: MEDICATIONS: Current Outpatient Medications Medication Instructions amLODIPine (NORVASC) 10 mg, Oral, Daily biotin 5 MG tablet Pt taking OTC ([employer]) Calcium Citrate-Vitamin D (CITRACAL + D PO) Pt taking OTC ([employer]) carvedilol (COREG) 12.5 mg, Oral, 2 times [...] Daily Magnesium 400 MG capsule Pt taking OTC([employer]points) Melatonin 12 MG tablet 1 tablet, Oral, Nightly Multiple Vitamins-Minerals (BARIATRIC MULTIVITAMINS/IRON PO) Pt taking OTC ([employer]) nystatin (Mycostatin) 980159 UNIT/GM powder 1 application , Topical, 2 [...] Anxiety 05/18/2023 Bipolar disorder with severe depression ([facility]) 05/18/2023 Brain lesion Brain vascular malformation Chronic pain disorder Closed fracture of patella 02/04/2018 Colon polyps Constipation Degenerative cervical disc Degenerative lumbar disc Depression (CMS/HCC) 05/18/2023 Diastolic dysfunction Dizziness 05/18/2023 Dysphagia Fibromyalgia Fibromyalgia Gastrocnemius equinus GERD (gastroesophageal reflux disease) Heart murmur Hematoma of right breast Hemiparesis ([facility]) Hemiparesis, right ([facility]) Hemorrhoid int/external hemorrhoids Hiatal hernia Iron deficiency Left foot pain 03/25/2023 Lower extremity edema Mood disorder ([facility]) mixed mood disorder OSMANY (obstructive sleep apnea) Osteoporosis ([facility]) Overactive bladder Pre-diabetes Primary hypertension ([facility]) 03/25/2023 PTSD (post-traumatic stress disorder) ([facility]) Restless leg Right knee pain Right sided weakness S/P bariatric surgery Shingles Slurred speech Stroke ([facility]) 2018 Tenosynovitis, de Quervain Thoracic back [...] of the risks of continued smoking: stroke, TN, all forms of cancer, lung disease, and [...] Relevant Orders Flu vaccine, MDCK, quadrivalent, PF ([id number]) (Flucelvax single dose syringe) Associated Problem(s): Tobacco dependence The patient has been advised of the risks of continued smoking: stroke, TN, all forms of cancer, lung disease, and . Options for quitting smoking include: cold turkey, hypnosis, acupuncture, nicotine replacement meds (gum, lozenges, and patches), Buproprion, and Varenicline. At this time pt is encouraged to evaluate their goals for wanting to quit smoking, and reach out to provider when ready to start this process documented in this encounter [facility] 05-18-2023 History of Present illness Narrative Associated [...] (BARIATRIC MULTIVITAMINS/IRON PO) Bariatric Multivitamins/Iron nystatin (Mycostatin) 438571 UNIT/GM powder 1 application , Topical, 2 [...] pain 03/25/2023 Lower extremity edema Mood disorder ([facility]) mixed mood disorder OSMANY (obstructive sleep apnea) Osteoporosis ([facility]) Overactive bladder Pre-diabetes Primary hypertension ([facility]) 03/25/2023 PTSD (post-traumatic stress disorder) ([facility]) Restless leg Right knee pain Right sided weakness S/P bariatric surgery Shingles Slurred speech Stroke ([facility]) 2018 Tenosynovitis, de Quervain Thoracic back [...] yearly and prn documented in this encounter [facility] 03-23-2023 Procedure note [facility] 12-19-2022 Evaluation note Encounter Date Diagnosis Assessment Notes Dec, Skin candidiasis (ICD-10 - B37.2) Drink plenty fluids, get plenty of rest. Continue home medications as prescribed. Take the Diflucan as prescribed until gone. Follow-up with your family physician if no improvement in 2 to 3 days [employer] Other 08-17-2023 Discharge summary Author Eduardo bautista [facility] November 20, 2022 6:38am Note Date/Time November 20, 2022 6: 38am [facility] [address] [place] [address] Discharge Summary Signed Patient: Michelle Be MR#: [id number] : 1960 Acct:[id number] Age/Sex: 61 / F Adm Date: 3 Loc: 1S Room: 2O0357-[address]: Gaudencio Monk MD Copies to: MD Adelaida Álvarez, BUNKER WORKER-C~ Providers Date of Discharge: 11/20/22 Discharging Provider: [...] at that time.? She reports moving to [place] from [place] in 2011 and was then diagnosed with bipolar disorder at [facility] in [place], where she still follows with a therapist.? Shereports that she has been with 7 therapists in the last 9 years and is currentlycompleting EMDR with her current therapist. 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 (insert date/time here) [...] signed by Eduardo Monk MD> 11/20/[address] [facility] Work Phone: 1(158) 964-369708-16-2023 Progress note Author Eduardo bautista [facility] November 19, 2022 6:25am Note Date/Time November 19, 2022 6: 25am [facility] [address] [place] [address] Psychiatry Progress Note Signed Patient: Michelle Be MR#: [id number] : 1960 Acct:[id number] Age/Sex: 61 / F Adm Date: 3 Loc: Room: [address] [place] [address] Type : ADM IN Attending Dr: Gaudencio [...] signed by Eduardo Monk MD> 11/19/[address] [facility] Work Phone: 1(170) 351-365908-15-2023 Progress note Author Eduardo bautista [facility] November 18, 2022 11:01am Note Date/Time November 18, 2022 10 :11am [facility] [address] [place] [address] Psychiatry Progress Note Signed Patient: Michelle Be MR#: [id number] : 1960 Acct:[id number] Age/Sex: 61 / F Adm Date: 3 Loc: Room: [address] [place] [address] Type : ADM IN Attending Dr: Gaudencio [...] by requesting a schedule 2 referring to [place] for pain management specifically every 4-6 hours [...] time Documented By: Eduardo Monk MD 3 [id number] Signed By: <Electronically signed by Eduardo Monk MD> 11/18/22 1101 <Electronically signed by MD DA Rangel> 11/18/22 1011 [facility] Work Phone: 1(291) 435-555708-14-2023 History and physical note Author Eduardo bautista [facility] November 17, 2022 12:48pm Note Date/Time November 17, 2022 12 :48pm [facility] [address] [place] [address] Psychiatry H&P Signed Patient: Michelle Be MR#: [id number] : 1960 Acct:[id number] Age/Sex: 61 / F Adm Date: 3 Loc: Room: [address] [place] [address] Type: ADM IN Attending Dr: Gaudencio Monk [...] at that time. She reports moving to [place] from [place] in 2011 and was then diagnosed with bipolar disorder at [facility] in [place], where she still follows with a therapist. Jonnyeports that she has been with 7 therapists in the last 9 years and is currentlycompleting EMDR with her current therapist. Past hospitalizations: Her most recent hospitalization was 5 years ago [place] [facility] in [place] for the same feeling she is experiencing [...] bilaterally. CN XII: Tongue protrusion midline [facility] Medical History (Updated 11/17/22 @ 10:42 [...] <Electronically signed by Eduardo Monk MD> 11/17/[address] [facility] Work Phone: [phone]) 775-163503-23-2023 NoteCONSULTATION CONSULTATION DATE: 06/26/2022 To: Nurse Sheyla [...] L5-S1 facet joint injection under fluoroscopic guidance.[facility] [id number] NotePROCEDURE: XR SHOULDER RT 2V or > [...] Electronically authenticated by: KINGSLEY CLEMENTS Date: 2022-05-09 09:21[facility]01-23-2023 NotePROCEDURE: XR WRIST LT MIN 3 V [...] Electronically authenticated by: KINGSLEY CLEMENTS Date: 2022-04-28 13:31[facility]12-29-2022 NoteCONSULTATION CONSULTATION DATE: 04/03/2022 HISTORY OF [...] her in three months, unless otherwise indicated.[facility] [id number] NoteCONSULTATION CONSULTATION DATE: 01/02/2022 This is a [...] prescription was sent by Dr. Macedo to [facility] in [place] for the compounded cream. She needs a [...] in three months' time unless otherwise indicated.[facility] [id number] NotePROCEDURE: XR ANKLE RT MIN 3 VIEWS, [...] by: KINGSLEY CLEMENTS Date: 2022-01-01 13:11[facility]09-28-2022 NotePROCEDURE: XR ANKLE RT MIN 3 [...] by: KINGSLEY CLEMENTS Date: 2022-01-01 13:11[facility]08-18-2022 NotePROCEDURE: XR FOOT RT MIN 3 VIEWS HISTORY: Pain in right foot , chronic COMPARISON: XR foot right 2020 FINDINGS: BONES:No fracture, dislocation, bone lesion. Small calcaneal degenerative enthesophytes. SOFT TISSUES:No visible soft tissue swelling. EFFUSION:None visible. OTHER: Negative. IMPRESSION: 1. No acute bone abnormality or significant degenerative joint disease. Electronically authenticated by: KINGSLEY CLEMENTS Date: 2021-11-21 16:13[facility]06-30-2022 NoteCONSULTATION CONSULTATION DATE: 10/03/2021 This is [...] patient agrees with the plan of care. [facility] Signed and Approved by: ZELDA MCDANIEL . 10/10/2021 10:22:00[facility] Diagnosis Onset Date Resolution Status Allergies acute Bipolar 2 disorder acute Hypertension acute Morbid obesity with BMI of 45.0-49.9, adult acute OSMANY (obstructive sleep apnea) acute Restless legs syndrome acute [facility] Work Phone: Evaluation noteNo InformationNort Generi[employer] Other Evaluation noteNo assessment information available [facility] Work Phone: Evaluation note* Diagnosis [...] with hematuria- Primary documented in this encounter [facility] HealthcareEvaluation note* Diagnosis Left foot pain- Primary Pain in soft tissues of limb Primary hypertension ([facility]) Unspecified essential hypertension Class 3 severe obesity due to excess calories without serious comorbidity with body mass index (BMI) of 45.0 to 49.9 in adult ([facility]) Encounter for annual wellness visit (AWV) in Medicare patient- Primary OSMANY (obstructive sleep apnea) Obstructive sleep apnea (adult) (pediatric) Chronic pain disorder Chronic pain syndrome Gastroesophageal reflux disease, unspecified whether esophagitis present Overactive bladder Hypertonicity of bladder Lower extremity edema Edema Pre-diabetes Other abnormal glucose Morbid obesity ([facility]) Morbid obesity Yeast infection of the skin Candidiasis of skin and nails Tobacco dependence Tobacco use disorder Mood disorder ([facility]) Unspecified episodic mood disorder Primary hypertension ([facility]) Unspecified essential hypertension Left hip pain Pain in joint, pelvic region and thigh Open wound of anterior abdominal wall, initial encounter Primary hypertension ([facility])- Primary Unspecified essential hypertension Yeast infection of the skin Candidiasis of skin and nails Morbid obesity ([facility]) Morbid obesity Primary hypertension ([facility])- Primary Unspecified essential hypertension Encounter for screening mammogram for malignant neoplasm of breast Gastroesophageal reflux disease, unspecified whether esophagitis present Acute gout of right foot, unspecified cause Osteoporosis, unspecified osteoporosis type, unspecified pathological fracture presence ([facility]) Morbid obesity ([facility]) Morbid obesity Pre-diabetes Other abnormal glucose Anemia, unspecified type Vitamin deficiency Unspecified vitamin deficiency Post-viral cough syndrome Primary hypertension ([facility])- Primary Unspecified essential hypertension Allergic rhinitis, unspecified Acute cough Morbid obesity ([facility]) Morbid obesity Former cigarette smoker Personal history of tobacco use, presenting hazards to health Toxic metabolic encephalopathy- Primary Hemiparesis, right ([facility]) Unspecified hemiplegia affecting unspecified side Acute respiratory failure with hypoxia ([facility]) Heart murmur Undiagnosed cardiac murmurs Primary hypertension ([facility]) Unspecified essential hypertension Morbid obesity ([facility]) Morbid obesity Bipolar disorder with severe depression ([facility]) Slurred speech Other speech disturbance Bilateral lower extremity edema- Primary Primary hypertension ([facility]) Unspecified essential hypertension Lower extremity edema Edema Essential (primary) hypertension ([facility]) Unspecified essential hypertension Gastro-esophageal reflux disease without esophagitis Allergic rhinitis, unspecified Bilateral lower extremity edema- Primary Morbid (severe) obesity due to excess calories ([facility]) Body mass index (BMI) 45.0-49.9, adult ([facility]) Pre-diabetes Other abnormal glucose Bilateral lower extremity edema- Primary Essential (primary) hypertension ([facility]) Unspecified essential hypertension Allergic rhinitis, unspecified OSMANY (obstructive sleep apnea) Obstructive sleep apnea (adult) (pediatric) Primary hypertension ([facility]) Unspecified essential hypertension Morbid obesity ([facility]) Morbid obesity Acute cystitis without hematuria- Primary Tobacco dependence Tobacco use disorder Needs flu shot Need for prophylactic vaccination and inoculation against influenza Morbid obesity ([facility]) Morbid obesity documented in this encounter [facility]* Diagnosis Left foot pain- Primary Pain in soft tissues of limb Primary hypertension ([facility]) Unspecified essential hypertension Class 3 severe obesity due to excess calories without serious comorbidity with body mass index (BMI) of 45.0 to 49.9 in adult ([facility]) Encounter for annual wellness visit (AWV) in Medicare patient- Primary OSMANY (obstructive sleep apnea) Obstructive sleep apnea (adult) (pediatric) Chronic pain disorder Chronic pain syndrome Gastroesophageal reflux disease, unspecified whether esophagitis present Overactive bladder Hypertonicity of bladder Lower extremity edema Edema Pre-diabetes Other abnormal glucose Morbid obesity ([facility]) Morbid obesity Yeast infection of the skin Candidiasis of skin and nails Tobacco dependence Tobacco use disorder Mood disorder ([facility]) Unspecified episodic mood disorder Primary hypertension ([facility]) Unspecified essential hypertension Left hip pain Pain in joint, pelvic region and thigh Open wound of anterior abdominal wall, initial encounter Primary hypertension ([facility])- Primary Unspecified essential hypertension Yeast infection of the skin Candidiasis of skin and nails Morbid obesity ([facility]) Morbid obesity Primary hypertension ([facility])- Primary Unspecified essential hypertension Encounter for screening mammogram for malignant neoplasm of breast Gastroesophageal reflux disease, unspecified whether esophagitis present Acute gout of right foot, unspecified cause Osteoporosis, unspecified osteoporosis type, unspecified pathological fracture presence ([facility]) Morbid obesity ([facility]) Morbid obesity Pre-diabetes Other abnormal glucose Anemia, unspecified type Vitamin deficiency Unspecified vitamin deficiency Post-viral cough syndrome Primary hypertension ([facility])- Primary Unspecified essential hypertension Allergic rhinitis, unspecified Acute cough Morbid obesity ([facility]) Morbid obesity Former cigarette smoker Personal history of tobacco use, presenting hazards to health Toxic metabolic encephalopathy- Primary Hemiparesis, right ([facility]) Unspecified hemiplegia affecting unspecified side Acute respiratory failure with hypoxia ([facility]) Heart murmur Undiagnosed cardiac murmurs Primary hypertension ([facility]) Unspecified essential hypertension Morbid obesity ([facility]) Morbid obesity Bipolar disorder with severe depression ([facility]) Slurred speech Other speech disturbance Bilateral lower extremity edema- Primary Primary hypertension ([facility]) Unspecified essential hypertension Lower extremity edema Edema Essential (primary) hypertension ([facility]) Unspecified essential hypertension Gastro-esophageal reflux disease without esophagitis Allergic rhinitis, unspecified Bilateral lower extremity edema- Primary Morbid (severe) obesity due to excess calories ([facility]) Body mass index (BMI) 45.0-49.9, adult ([facility] [facility]) Pre-diabetes Other abnormal glucose Bilateral lower extremity edema- Primary Essential (primary) hypertension ([facility]) Unspecified essential hypertension Allergic rhinitis, unspecified OSMANY (obstructive sleep apnea) Obstructive sleep apnea (adult) (pediatric) Primary hypertension ([facility]) Unspecified essential hypertension Morbid obesity ([facility]) Morbid obesity Acute cystitis without hematuria- Primary Tobacco dependence Tobacco use disorder Needs flu shot Need for prophylactic vaccination and inoculation against influenza Morbid obesity ([facility]) Morbid obesity Restless leg Restless legs syndrome (RLS) documented in this encounter [facility]* Diagnosis Left foot pain- Primary Pain in soft tissues of limb Primary hypertension ([facility]) Unspecified essential hypertension Class 3 severe obesity due to excess calories without serious comorbidity with body mass index (BMI) of 45.0 to 49.9 in adult ([facility]) Encounter for annual wellness visit (AWV) in Medicare patient- Primary OSMANY (obstructive sleep apnea) Obstructive sleep apnea (adult) (pediatric) Chronic pain disorder Chronic pain syndrome Gastroesophageal reflux disease, unspecified whether esophagitis present Overactive bladder Hypertonicity of bladder Lower extremity edema Edema Pre-diabetes Other abnormal glucose Morbid obesity ([facility]) Morbid obesity Yeast infection of the skin Candidiasis of skin and nails Tobacco dependence Tobacco use disorder Mood disorder ([facility]) Unspecified episodic mood disorder Primary hypertension ([facility]) Unspecified essential hypertension Left hip pain Pain in joint, pelvic region and thigh Open wound of anterior abdominal wall, initial encounter Primary hypertension ([facility])- Primary Unspecified essential hypertension Yeast infection of the skin Candidiasis of skin and nails Morbid obesity ([facility]) Morbid obesity Primary hypertension ([facility])- Primary Unspecified essential hypertension Encounter for screening mammogram for malignant neoplasm of breast Gastroesophageal reflux disease, unspecified whether esophagitis present Acute gout of right foot, unspecified cause Osteoporosis, unspecified osteoporosis type, unspecified pathological fracture presence ([facility]) Morbid obesity ([facility]) Morbid obesity Pre-diabetes Other abnormal glucose Anemia, unspecified type Vitamin deficiency Unspecified vitamin deficiency Post-viral cough syndrome Primary hypertension ([facility])- Primary Unspecified essential hypertension Allergic rhinitis, unspecified Acute cough Morbid obesity ([facility]) Morbid obesity Former cigarette smoker Personal history of tobacco use, presenting hazards to health Toxic metabolic encephalopathy- Primary Hemiparesis, right ([facility]) Unspecified hemiplegia affecting unspecified side Acute respiratory failure with hypoxia ([facility]) Heart murmur Undiagnosed cardiac murmurs Primary hypertension ([facility]) Unspecified essential hypertension Morbid obesity ([facility]) Morbid obesity Bipolar disorder with severe depression ([facility]) Slurred speech Other speech disturbance Bilateral lower extremity edema- Primary Primary hypertension ([facility]) Unspecified essential hypertension Lower extremity edema Edema Essential (primary) hypertension ([facility]) Unspecified essential hypertension Gastro-esophageal reflux disease without esophagitis Allergic rhinitis, unspecified Bilateral lower extremity edema- Primary Morbid (severe) obesity due to excess calories ([facility]) Body mass index (BMI) 45.0-49.9, adult ([facility]) Pre-diabetes Other abnormal glucose Bilateral lower extremity edema- Primary Essential (primary) hypertension ([facility]) Unspecified essential hypertension Allergic rhinitis, unspecified OSMANY (obstructive sleep apnea) Obstructive sleep apnea (adult) (pediatric) Primary hypertension ([facility]) Unspecified essential hypertension Morbid obesity ([facility]) Morbid obesity Acute cystitis without hematuria- Primary Tobacco dependence Tobacco use disorder Needs flu shot Need for prophylactic vaccination and inoculation against influenza Morbid obesity ([facility]) Morbid obesity Well woman exam with routine gynecological exam- Primary Routine gynecological examination Morbid obesity ([facility]) Morbid obesity documented in [facility] Diagnosis Left foot pain- Primary Pain in soft tissues of limb Primary hypertension ([facility]) Unspecified essential hypertension Class 3 severe obesity due to excess calories without serious comorbidity with body mass index (BMI) of 45.0 to 49.9 in adult ([facility]) Encounter for annual wellness visit (AWV) in Medicare patient- Primary OSMANY (obstructive sleep apnea) Obstructive sleep apnea (adult) (pediatric) Chronic pain disorder Chronic pain syndrome Gastroesophageal reflux disease, unspecified whether esophagitis present Overactive bladder Hypertonicity of bladder Lower extremity edema Edema Pre-diabetes Other abnormal glucose Morbid obesity ([facility]) Morbid obesity Yeast infection of the skin Candidiasis of skin and nails Tobacco dependence Tobacco use disorder Mood disorder ([facility]) Unspecified episodic mood disorder Primary hypertension ([facility]) Unspecified essential hypertension Left hip pain Pain in joint, pelvic region and thigh Open wound of anterior abdominal wall, initial encounter Primary hypertension ([facility])- Primary Unspecified essential hypertension Yeast infection of the skin Candidiasis of skin and nails Morbid obesity ([facility]) Morbid obesity Primary hypertension ([facility])- Primary Unspecified essential hypertension Encounter for screening mammogram for malignant neoplasm of breast Gastroesophageal reflux disease, unspecified whether esophagitis present Acute gout of right foot, unspecified cause Osteoporosis, unspecified osteoporosis type, unspecified pathological fracture presence ([facility]) Morbid obesity ([facility]) Morbid obesity Pre-diabetes Other abnormal glucose Anemia, unspecified type Vitamin deficiency Unspecified vitamin deficiency Post-viral cough syndrome Primary hypertension ([facility])- Primary Unspecified essential hypertension Allergic rhinitis, unspecified Acute cough Morbid obesity ([facility]) Morbid obesity Former cigarette smoker Personal history of tobacco use, presenting hazards to health Toxic metabolic encephalopathy- Primary Hemiparesis, right ([facility]) Unspecified hemiplegia affecting unspecified side Acute respiratory failure with hypoxia ([facility]) Heart murmur Undiagnosed cardiac murmurs Primary hypertension ([facility]) Unspecified essential hypertension Morbid obesity ([facility]) Morbid obesity Bipolar disorder with severe depression ([facility]) Slurred speech Other speech disturbance Bilateral lower extremity edema- Primary Primary hypertension ([facility]) Unspecified essential hypertension Lower extremity edema Edema Essential (primary) hypertension ([facility]) Unspecified essential hypertension Gastro-esophageal reflux disease without esophagitis Allergic rhinitis, unspecified Bilateral lower extremity edema- Primary Morbid (severe) obesity due to excess calories ([facility]) Body mass index (BMI) 45.0-49.9, adult ([facility]) Pre-diabetes Other abnormal glucose Bilateral lower extremity edema- Primary Essential (primary) hypertension ([facility]) Unspecified essential hypertension Allergic rhinitis, unspecified OSMANY [...] obesity (CMS/HCC) Morbid obesity Essential (primary) hypertension ([facility]) Unspecified essential hypertension Allergic rhinitis, unspecified documented in [facility]* Diagnosis Left foot pain- Primary Pain in soft tissues of limb Primary hypertension ([facility]) Unspecified essential hypertension Class 3 severe obesity due to excess calories without serious comorbidity with body mass index (BMI) of 45.0 to 49.9 in adult ([facility]) Encounter for annual wellness visit (AWV) in [...] (CMS/HCC) Unspecified episodic mood disorder Primary hypertension ([facility]) Unspecified essential hypertension Left hip pain Pain in joint, pelvic region and thigh Open wound of anterior abdominal wall, initial encounter Primary hypertension ([facility])- Primary Unspecified essential hypertension Yeast infection of the skin Candidiasis of skin and nails Morbid obesity ([facility]) Morbid obesity Primary hypertension ([facility])- Primary Unspecified essential hypertension Encounter for screening mammogram for malignant neoplasm of breast Gastroesophageal reflux disease, unspecified whether esophagitis present Acute gout of right foot, unspecified cause Osteoporosis, unspecified osteoporosis type, unspecified pathological fracture presence ([facility]) Morbid obesity ([facility]) Morbid obesity Pre-diabetes Other abnormal glucose Anemia, unspecified type Vitamin deficiency Unspecified vitamin deficiency Post-viral cough syndrome Primary hypertension (CMS/HCC)- Primary Unspecified essential hypertension Allergic rhinitis, unspecified Acute cough Morbid obesity ([facility]) Morbid obesity Former cigarette smoker Personal history of tobacco use, presenting hazards to health Toxic metabolic encephalopathy- Primary Hemiparesis, right ([facility]) Unspecified hemiplegia affecting unspecified side Acute respiratory failure with hypoxia ([facility]) Heart murmur Undiagnosed cardiac murmurs Primary hypertension ([facility]) Unspecified essential hypertension Morbid obesity ([facility]) Morbid obesity Bipolar disorder with severe depression ([facility]) Slurred speech Other speech disturbance Bilateral lower extremity edema- Primary Primary hypertension ([facility]) Unspecified essential hypertension Lower extremity edema Edema Essential (primary) hypertension ([facility]) Unspecified essential hypertension Gastro-esophageal reflux disease without esophagitis Allergic rhinitis, unspecified Bilateral lower extremity edema- Primary Morbid (severe) obesity due to excess calories ([facility]) Body mass index (BMI) 45.0-49.9, adult ([facility]) Pre-diabetes Other abnormal glucose Bilateral lower extremity edema- Primary Essential (primary) hypertension ([facility]) Unspecified essential hypertension Allergic rhinitis, unspecified OSMANY (obstructive sleep apnea) Obstructive sleep apnea (adult) (pediatric) Primary hypertension ([facility]) Unspecified essential hypertension Morbid obesity ([facility]) Morbid obesity Acute cystitis without hematuria- Primary Tobacco dependence Tobacco use disorder Needs flu shot Need for prophylactic vaccination and inoculation against influenza Morbid obesity ([facility]) Morbid obesity Well woman exam with routine gynecological exam- Primary Routine gynecological examination Morbid obesity ([facility]) Morbid obesity Allergic rhinitis, unspecified documented in this encounter [facility]* Diagnosis Left foot pain- Primary Pain in soft tissues of limb Primary hypertension ([facility]) Unspecified essential hypertension Class 3 severe obesity due to excess calories without serious comorbidity with body mass index (BMI) of 45.0 to 49.9 in adult ([facility]) Encounter for annual wellness visit (AWV) in Medicare patient- Primary OSMANY (obstructive sleep apnea) Obstructive sleep apnea (adult) (pediatric) Chronic pain disorder Chronic pain syndrome Gastroesophageal reflux disease, unspecified whether esophagitis present Overactive bladder Hypertonicity of bladder Lower extremity edema Edema Pre-diabetes Other abnormal glucose Morbid obesity ([facility]) Morbid obesity Yeast infection of the skin Candidiasis of skin and nails Tobacco dependence Tobacco use disorder Mood disorder ([facility]) Unspecified episodic mood disorder Primary hypertension ([facility]) Unspecified essential hypertension Left hip pain Pain in joint, pelvic region and thigh Open wound of anterior abdominal wall, initial encounter Primary hypertension ([facility])- Primary Unspecified essential hypertension Yeast infection of the skin Candidiasis of skin and nails Morbid obesity ([facility]) Morbid obesity Primary hypertension ([facility])- Primary Unspecified essential hypertension Encounter for screening mammogram for malignant neoplasm of breast Gastroesophageal reflux disease, unspecified whether esophagitis present Acute gout of right foot, unspecified cause Osteoporosis, unspecified osteoporosis type, unspecified pathological fracture presence ([facility]) Morbid obesity ([facility]) Morbid obesity Pre-diabetes Other abnormal glucose Anemia, unspecified type Vitamin deficiency Unspecified vitamin deficiency Post-viral cough syndrome Primary hypertension ([facility])- Primary Unspecified essential hypertension Allergic rhinitis, unspecified Acute cough Morbid obesity ([facility]) Morbid obesity Former cigarette smoker Personal history of tobacco use, presenting hazards to health Toxic metabolic encephalopathy- Primary Hemiparesis, right ([facility]) Unspecified hemiplegia affecting unspecified side Acute respiratory failure with hypoxia ([facility]) Heart murmur Undiagnosed cardiac murmurs Primary hypertension ([facility]) Unspecified essential hypertension Morbid obesity ([facility] [place]) Morbid obesity Bipolar disorder with severe depression ([facility]) Slurred speech Other speech disturbance Bilateral lower extremity edema- Primary Primary hypertension ([facility]) Unspecified essential hypertension Lower extremity edema Edema Essential (primary) hypertension ([facility] [place]) Unspecified essential hypertension Gastro-esophageal reflux disease without esophagitis Allergic rhinitis, unspecified Bilateral lower extremity edema- Primary Morbid (severe) obesity due to excess calories ([facility]) Body mass index (BMI) 45.0-49.9, adult ([facility] [place]) Pre-diabetes Other abnormal glucose Bilateral lower extremity edema- Primary Essential (primary) hypertension ([facility]) Unspecified essential hypertension Allergic rhinitis, unspecified OSMANY (obstructive sleep apnea) Obstructive sleep apnea (adult) (pediatric) Primary hypertension ([facility]) Unspecified essential hypertension Morbid obesity ([facility] [place]) Morbid obesity Acute cystitis without hematuria- Primary Tobacco dependence Tobacco use disorder Needs flu shot Need for prophylactic vaccination and inoculation against influenza Morbid obesity ([facility]) Morbid obesity Well woman exam with routine gynecological exam- Primary Routine gynecological examination Morbid obesity ([facility]) Morbid obesity Yeast infection of the skin Candidiasis of skin and nails documented in this encounter [facility]* Diagnosis Left foot pain- Primary Pain in soft tissues of limb Primary hypertension ([facility]) Unspecified essential hypertension Class 3 severe obesity due to excess calories without serious comorbidity with body mass index (BMI) of 45.0 to 49.9 in adult ([facility]) Encounter for annual wellness visit (AWV) in Medicare patient- Primary OSMANY (obstructive sleep apnea) Obstructive sleep apnea (adult) (pediatric) Chronic pain disorder Chronic pain syndrome Gastroesophageal reflux disease, unspecified whether esophagitis present Overactive bladder Hypertonicity of bladder Lower extremity edema Edema Pre-diabetes Other abnormal glucose Morbid obesity ([facility]) Morbid obesity Yeast infection of the skin Candidiasis of skin and nails Tobacco dependence Tobacco use disorder Mood disorder ([facility]) Unspecified episodic mood disorder Primary hypertension ([facility]) Unspecified essential hypertension Left hip pain Pain in joint, pelvic region and thigh Open wound of anterior abdominal wall, initial encounter Primary hypertension ([facility])- Primary Unspecified essential hypertension Yeast infection of the skin Candidiasis of skin and nails Morbid obesity ([facility]) Morbid obesity Primary hypertension ([facility])- Primary Unspecified essential hypertension Encounter for screening mammogram for malignant neoplasm of breast Gastroesophageal reflux disease, unspecified whether esophagitis present Acute gout of right foot, unspecified cause Osteoporosis, unspecified osteoporosis type, unspecified pathological fracture presence ([facility]) Morbid obesity ([facility]) Morbid obesity Pre-diabetes Other abnormal glucose Anemia, unspecified type Vitamin deficiency Unspecified vitamin deficiency Post-viral cough syndrome Primary hypertension ([facility])- Primary Unspecified essential hypertension Allergic rhinitis, unspecified Acute cough Morbid obesity ([facility]) Morbid obesity Former cigarette smoker Personal history of tobacco use, presenting hazards to health Toxic metabolic encephalopathy- Primary Hemiparesis, right ([facility]) Unspecified hemiplegia affecting unspecified side Acute respiratory failure with hypoxia ([facility]) Heart murmur Undiagnosed cardiac murmurs Primary hypertension ([facility]) Unspecified essential hypertension Morbid obesity ([facility]) Morbid obesity Bipolar disorder with severe depression ([facility]) Slurred speech Other speech disturbance Bilateral lower extremity edema- Primary Primary hypertension ([facility]) Unspecified essential hypertension Lower extremity edema Edema Essential (primary) hypertension ([facility]) Unspecified essential hypertension Gastro-esophageal reflux disease without esophagitis Allergic rhinitis, unspecified Bilateral lower extremity edema- Primary Morbid (severe) obesity due to excess calories ([facility]) Body mass index (BMI) 45.0-49.9, adult ([facility]) Pre-diabetes Other abnormal glucose Bilateral lower extremity edema- Primary Essential (primary) hypertension ([facility]) Unspecified essential hypertension Allergic rhinitis, unspecified OSMANY (obstructive sleep apnea) Obstructive sleep apnea (adult) (pediatric) Primary hypertension ([facility]) Unspecified essential hypertension Morbid obesity ([facility]) Morbid obesity Acute cystitis without hematuria- Primary Tobacco dependence Tobacco use disorder Needs flu shot Need for prophylactic vaccination and inoculation against influenza Morbid obesity ([facility]) Morbid obesity Well woman exam with routine gynecological exam- Primary Routine gynecological examination Morbid obesity ([facility]) Morbid obesity Metabolic encephalopathy- Primary OSMANY (obstructive sleep apnea) Obstructive sleep apnea (adult) (pediatric) Restless leg Restless legs syndrome (RLS) 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 ([facility]) Degeneration of intervertebral disc of lumbar region with discogenic back pain and lower extremity pain Memory change Memory loss documented in this encounter [facility] HealthcareEvaluation note* Diagnosis Left foot pain- Primary Pain in soft tissues of limb Primary hypertension ([facility]) Unspecified essential hypertension Class 3 severe obesity due to excess calories without serious comorbidity with body mass index (BMI) of 45.0 to 49.9 in adult ([facility]) Encounter for annual wellness visit (AWV) in Medicare patient- Primary OSMANY (obstructive sleep apnea) Obstructive sleep apnea (adult) (pediatric) Chronic pain disorder Chronic pain syndrome Gastroesophageal reflux disease, unspecified whether esophagitis present Overactive bladder Hypertonicity of bladder Lower extremity edema Edema Pre-diabetes Other abnormal glucose Morbid obesity ([facility]) Morbid obesity Yeast infection of the skin Candidiasis of skin and nails Tobacco dependence Tobacco use disorder Mood disorder ([facility]) Unspecified episodic mood disorder Primary hypertension ([facility]) Unspecified essential hypertension Left hip pain Pain in joint, pelvic region and thigh Open wound of anterior abdominal wall, initial encounter Primary hypertension ([facility])- Primary Unspecified essential hypertension Yeast infection of the skin Candidiasis of skin and nails Morbid obesity ([facility]) Morbid obesity Primary hypertension ([facility])- Primary Unspecified essential hypertension Encounter for screening mammogram for malignant neoplasm of breast Gastroesophageal reflux disease, unspecified whether esophagitis present Acute gout of right foot, unspecified cause Osteoporosis, unspecified osteoporosis type, unspecified pathological fracture presence ([facility]) Morbid obesity ([facility]) Morbid obesity Pre-diabetes Other abnormal glucose Anemia, unspecified type Vitamin deficiency Unspecified vitamin deficiency Post-viral cough syndrome Primary hypertension ([facility])- Primary Unspecified essential hypertension Allergic rhinitis, unspecified Acute cough Morbid obesity ([facility]) Morbid obesity Former cigarette smoker Personal history of tobacco use, presenting hazards to health Toxic metabolic encephalopathy- Primary Hemiparesis, right ([facility]) Unspecified hemiplegia affecting unspecified side Acute respiratory failure with hypoxia ([facility]) Heart murmur Undiagnosed cardiac murmurs Primary hypertension ([facility]) Unspecified essential hypertension Morbid obesity ([facility]) Morbid obesity Bipolar disorder with severe depression ([facility]) Slurred speech Other speech disturbance Bilateral lower extremity edema- Primary Primary hypertension ([facility]) Unspecified essential hypertension Lower extremity edema Edema Essential (primary) hypertension ([facility]) Unspecified essential hypertension Gastro-esophageal reflux disease without esophagitis Allergic rhinitis, unspecified Bilateral lower extremity edema- Primary Morbid (severe) obesity due to excess calories ([facility]) Body mass index (BMI) 45.0-49.9, adult ([facility]) Pre-diabetes Other abnormal glucose Bilateral lower extremity edema- Primary Essential (primary) hypertension ([facility]) Unspecified essential hypertension Allergic rhinitis, unspecified OSMANY (obstructive sleep apnea) Obstructive sleep apnea (adult) (pediatric) Primary hypertension ([facility]) Unspecified essential hypertension Morbid obesity ([facility]) Morbid obesity Acute cystitis without hematuria- Primary Tobacco dependence Tobacco use disorder Needs flu shot Need for prophylactic vaccination and inoculation against influenza Morbid obesity ([facility]) Morbid obesity Well woman exam with routine gynecological exam- Primary Routine gynecological examination Morbid obesity ([facility]) Morbid obesity Altered mental status, unspecified altered mental status type- Primary Restless leg Restless legs syndrome (RLS) 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[facility]) OSMANY (obstructive sleep apnea) Obstructive sleep apnea (adult) (pediatric) documented in this encounter [facility] HealthcareEvaluation note* Diagnosis Left foot pain- Primary Pain in soft tissues of limb Primary hypertension ([facility]) Unspecified essential hypertension Class 3 severe obesity due to excess calories without serious comorbidity with body mass index (BMI) of 45.0 to 49.9 in adult ([facility]) Encounter for annual wellness visit (AWV) in Medicare patient- Primary OSMANY (obstructive sleep apnea) Obstructive sleep apnea (adult) (pediatric) Chronic pain disorder Chronic pain syndrome Gastroesophageal reflux disease, unspecified whether esophagitis present Overactive bladder Hypertonicity of bladder Lower extremity edema Edema Pre-diabetes Other abnormal glucose Morbid obesity ([facility]) Morbid obesity Yeast infection of the skin Candidiasis of skin and nails Tobacco dependence Tobacco use disorder Mood disorder ([facility]) Unspecified episodic mood disorder Primary hypertension ([facility]) Unspecified essential hypertension Left hip pain Pain in joint, pelvic region and thigh Open wound of anterior abdominal wall, initial encounter Primary hypertension ([facility])- Primary Unspecified essential hypertension Yeast infection of the skin Candidiasis of skin and nails Morbid obesity ([facility]) Morbid obesity Primary hypertension ([facility])- Primary Unspecified essential hypertension Encounter for screening mammogram for malignant neoplasm of breast Gastroesophageal reflux disease, unspecified whether esophagitis present Acute gout of right foot, unspecified cause Osteoporosis, unspecified osteoporosis type, unspecified pathological fracture presence ([facility]) Morbid obesity ([facility]) Morbid obesity Pre-diabetes Other abnormal glucose Anemia, unspecified type Vitamin deficiency Unspecified vitamin deficiency Post-viral cough syndrome Primary hypertension ([facility])- Primary Unspecified essential hypertension Allergic rhinitis, unspecified Acute cough Morbid obesity ([facility]) Morbid obesity Former cigarette smoker Personal history of tobacco use, presenting hazards to health Toxic metabolic encephalopathy- Primary Hemiparesis, right ([facility]) Unspecified hemiplegia affecting unspecified side Acute respiratory failure with hypoxia ([facility]) Heart murmur Undiagnosed cardiac murmurs Primary hypertension ([facility]) Unspecified essential hypertension Morbid obesity ([facility]) Morbid obesity Bipolar disorder with severe depression ([facility]) Slurred speech Other speech disturbance Bilateral lower extremity edema- Primary Primary hypertension ([facility]) Unspecified essential hypertension Lower extremity edema Edema Essential (primary) hypertension ([facility]) Unspecified essential hypertension Gastro-esophageal reflux disease without esophagitis Allergic rhinitis, unspecified Bilateral lower extremity edema- Primary Morbid (severe) obesity due to excess calories ([facility]) Body mass index (BMI) 45.0-49.9, adult ([facility]) Pre-diabetes Other abnormal glucose Bilateral lower extremity edema- Primary Essential (primary) hypertension ([facility]) Unspecified essential hypertension Allergic rhinitis, unspecified OSMANY (obstructive sleep apnea) Obstructive sleep apnea (adult) (pediatric) Primary hypertension ([facility]) Unspecified essential hypertension Morbid obesity ([facility]) Morbid obesity Acute cystitis without hematuria- Primary Tobacco dependence Tobacco use disorder Needs flu shot Need for prophylactic vaccination and inoculation against influenza Morbid obesity (CMS/HCC) Morbid obesity Well woman exam with routine gynecological exam- Primary Routine gynecological examination Morbid obesity (CMS/HCC) Morbid obesity Altered mental status, unspecified altered mental status type- Primary Memory change Memory loss Concentration deficit 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 ([facility]) PTSD (post-traumatic stress disorder) (CMS/HCC) Posttraumatic stress disorder Bipolar affective disorder, remission status unspecified (CMS/HCC) Family history of dementia Family history of other neurological diseases documented in this encounter [facility] HealthcareHistory and physical note Author Jace Graham [facility] March 23, 2023 11:21am Note Date/Time March 23, 2023 11:21am [facility] [address] [place] [address] Gastroenterology H&P Signed Patient: Michelle Be MR#: [id number] : 1960 Acct:[id number] Age/Sex: 62 / F Adm Date: 3 [...] signed by Jace Graham MD> 03/23/23 1121 [facility] Work Phone: History general Narrative - [...] see above surg Hospitalization History stroke 2017 [employer] Other Hospital Discharge instructions Additional Instructions Regular Diet No Activity [facility] Work Phone: Hospital Discharge instructions Additional [...] years. -Follow up with PCP. -Office number [phone].[facility] Work Phone: Reason for visit Narrative* Consultation (Routine) - Closed Specialty Diagnoses / Procedures Referred By Contac t Referred To Contact Neuropsychology Diagnoses Memory change Procedures [place] OFFICE/OUTPATIENT [facility] Juany Ramirez PA [address] [place] [address] Phone: tel: fax: David Foster, PhD [address] [place] [phone] Phone: tel: fax: Referral ID Status Reason Start Date Expiration Date V isits Requested Visits Authorized [id number] Closed Specialty Services Required 03/07/2024 09/03/2024 1 1 [facility] Healthcare Summary Purpose Family History No Family History Records Found Relationship Condition Age at Onset Recorded Date/T savita Not Specified Diabetes mellitus Unknown father Hypertension Unknown father Sick sinus syndrome Unknown Advance Directives No Advanced Directives Records Found Advance Directive Response Recorded Date/ Time Advance Directives No May 7:44pm Advance Directive Response Recorded Date/ Time Advance Directives No May 6:44pm Documents on File Type Date Recorded Patient Nurse Staff [facility] Power of Assistant Press Operator 03/10/2024 3:12 PM POA Documents on File Type Date Recorded Patient Nurse Staff [facility] Expl anation Power of Assistant Press Operator 03/10/2024 3:12 PM POA Chief Complaint and Reason for Visit Chief Complaint Bipolar Depression Reason for Visit Allergies Bipolar 2 disorder Hypertension Morbid obesity with BMI of 45.0-49.9, adult OSMANY (obstructive sleep apnea) Restless legs syndrome Chief Complaint Screening Additional Source Comments INFORMATION SOURCE (unrecogn ized section and content) DATE CREATED AUTHOR 02/18/2019 [facility] DATE CREATED AUTHOR AUTHOR'S ORGANIZ ATION 11/15/2021 [facility] DATE CREATED AUTHOR AUTHOR'S ORGANIZ ATION 08/16/2022 [facility] [place] [facility] DATE CREATED AUTHOR AUTHOR'S ORGANIZ ATION 01/31/[address] [facility] DATE CREATED AUTHOR AUTHOR'S ORGANIZ ATION 03/09/2024 [facility] DATE CREATED AUTHOR AUTHOR'S ORGANIZ ATION 03/17/[address] [facility] dical Specialists EPIC Care Teams (unrecognized [...] MD Other Provider Active Adelaida Marsh , HEAVY THREADER Other Provider Active Jessica Murillo , DO [...] MD Other Provider Active Joellen Le , BUNKER WORKER-C Other Provider Active Severo Yancey MD Other Provider Active Rao Webber MD Other Provider Active Yuan Shi MD Other Provider Active Delroy Ramirez MD Other Provider Active Berta Comer , DO Other Provider Active Negrito Ruiz , DO Other Provider Active Lacho Singh , DO Other Provider Active Rachana Hobson , HEAVY THREADER Other Provider Active Rob Lake , DO Other Provider Active Jeff Alvarez MD Other Provider Active Urmila Rinaldi HEAVY THREADER Other Provider Active Bina Mayberry , HEAVY THREADER Other Provider Active Mir Bradford MD Other Provider Active Te Da Silva MD Other Provider Active Debra Landaverde RN Other Provider Active Team Status: Inactive Member Role Status Dates Adelaida Carrion Primary Care Provider Active Jace Graham MD Attending Provider Active Formula Clerk Relationship Specialty Start Date End Date José Luis Roberts MD [address] [place] [phone] PCP - General Family Medicine 05/18/23 Adelaida Carrion NP [address] [place] [address] Referring Physician Nurse Practitioner 10/14/22 Formula Clerk Relationship Specialty Start Date End Date José Luis Roberts MD [address] [place] [address] PCP - General Family Medicine 05/18/23 Adelaida Carrion NP [address] [place] [address] Referring Physician Nurse Practitioner 10/14/22 Formula Clerk Relationship Specialty Start Date End Date José Luis Roberts MD [address] [place] [phone] PCP - General Family Medicine 05/18/23 Adelaida Carrion NP [address] [place] [place] [address] Referring Physician Nurse Practitioner 10/14/22 Formula Clerk Relationship Specialty Start Date End Date José Luis Roberts MD [address] [place] [address] PCP - General Family Medicine 05/18/23 Adelaida Carrion NP Referring Physician Nurse Practitioner 10/14/22 Miriam Suarez DO [address] [place], [place] [id number] Referring Physician Neurology 06/29/23 [place] LPN Licensed Practical Nurse Family Medicine 12/18/23 Formula Clerk Relationship Specialty Start Date End Date José Luis Roberts MD [address] [place] [phone] PCP - General Family Medicine 05/18/23 Adelaida Carrion NP Referring Physician Nurse Practitioner 10/14/22 Miriam Suarez DO [address] [place] [address] Referring Physician Neurology 06/29/23 [place] LPN Licensed Practical Nurse Family Medicine 12/18/23 Formula Clerk Relationship Specialty Start Date End Date Unallocated, Familias MD Mariela [address] [facility] [place] [address] PCP - General Family Medicine 01/27/24 Miriam Suarez DO [address] [place] [address] Referring Physician Neurology 06/29/23 [place] LPN Licensed Practical Nurse Family Medicine 12/18/23 Adelaida Carrion, BRIANA [address] [place] [address] Nurse Practitioner Family Medicine 01/27/24 Formula Clerk Relationship Specialty Start Date End Date Unallocated, Noms MD Mariela [address] [place] [address] PCP - General Family Medicine 01/27/24 Miriam Suarez DO [address] [place] [address] Referring Physician Neurology 06/29/23 [place] LPN Licensed Practical Nurse Family Medicine 12/18/23 Adelaida Carrion, BRIANA [address] [place] [place] [address] Nurse Practitioner Family Medicine 01/27/24 Formula Clerk Relationship Specialty Start Date End Date José Luis Roberts MD [address] [place] [address] PCP - General Family Medicine 02/02/24 Miriam Suarez DO [address] [place] [address] Referring Physician Neurology 06/29/23 [place] LPN Licensed Practical Nurse Family Medicine 12/18/23 Adelaida Carrion, BRIANA [address] [place] [address] Nurse Practitioner Family Medicine 01/27/24 Formula Clerk Relationship Specialty Start Date End Date José Luis Roberts MD [address] [place] [address] PCP - General Family Medicine 02/02/24 Miriam Suarez DO [address] [place], [place] [address] Referring Physician Neurology 06/29/23 Adelaida Carrion NP [address] [place] [address] Nurse Practitioner Family Medicine 01/27/24 Bong Rosado MA Family Medicine 02/12/24 Formula Clerk Relationship Specialty Start Date End Date José Luis Roberts MD [address] [place] [phone] PCP - General Family Medicine 02/02/24 Miriam Suarez DO [address] [place], [place] [address] Referring Physician Neurology 06/29/23 Adelaida Carrion, BRIANA [address] [place] [address] Nurse Practitioner Family Medicine 01/27/24 Bong Rosado MA Family Medicine 02/12/24 Formula Clerk Relationship Specialty Start Date End Date José Luis Roberts MD [address] [place] [address] PCP - General Family Medicine 02/02/24 Miriam Suarez DO [address] [place], [place] [id number] Referring Physician Neurology 06/29/23 Adelaida Carrion NP [address] [place] [address] Nurse Practitioner Family Medicine 01/27/24 Bong Rosado MA Family Medicine 02/12/24 Formula Clerk Relationship Specialty Start Date End Date José Luis Roberts MD [address] [place] [address] PCP - General Family Medicine 02/02/24 Miriam Suarez DO [address] [place], [place] [address] Referring Physician Neurology 06/29/23 Adelaida Carrion NP [address] [place] [address] Nurse Practitioner Family Medicine 01/27/24 Bong Rosado MA [facility] Medicine 02/12/24 Formula Clerk Relationship Specialty Start Date End Date José Luis Roberts MD [address] [place] [address] PCP - General Family Medicine 02/02/24 Miriam Suarez DO [address] [place] [address] Referring Physician Neurology 06/29/23 Adelaida Carrion NP [address] [place] [address] Nurse Practitioner Family Medicine 01/27/24 Bong Rosado MA Family Medicine 02/12/24 Formula Clerk Relationship Specialty Start Date End Date José Luis Roberts MD [address] [place] [address] PCP - General Family Medicine 02/02/24 Miriam Suarez DO [address] [place], [place] [address] Referring Physician Neurology 06/29/23 Adelaida Carrion NP [address] [place] [address] Nurse Practitioner Family Medicine 01/27/24 Bong Rosado MA Family Medicine 02/12/24 Formula Clerk Relationship Specialty Start Date End Date José Luis Roberts MD [address] [place] [address] PCP - General Family Medicine 02/02/24 Miriam Suarez DO [address] [place], [place] [address] Referring Physician Neurology 06/29/23 Adelaida Carrion, BRIANA [address] [place] [address] Nurse Practitioner Family Medicine 01/27/24 Bong Rosado MA Family Medicine 02/12/24 Formula Clerk Relationship Specialty Start Date End Date José Luis Roberts MD [address] [place] [address] PCP - General Family Medicine 02/02/24 Miriam Suarez DO [address] [place], [place] [address] Referring Physician Neurology 06/29/23 Adelaida Carrion NP [address] [place] [address] Nurse Practitioner Family Medicine 01/27/24 Bong Rosado MA [facility] 02/12/24 Formula Clerk Relationship Specialty Start Date End Date José Luis Roberts MD [address] [place] [address] PCP - General Family Medicine 02/02/24 Miriam Suarez DO [address] [place] [address] Referring Physician Neurology 06/29/23 Adelaida Carrion NP [address] [place] [address] Nurse Practitioner Family Medicine 01/27/24 Bong Rosado MA [facility] Medicine 02/12/24 REASON FOR VISIT (unrecogniz ed section and content) Reason Comments Med Refill Reason Comments Restless Legs Encephalopathy Reason Comments Hospital Follow-up FOR RECORDS PERTAINING TO PATIENTS WHO ARE [...] BE BASED ON THE PRIMARY CLINICAL RECORDS. [employer] provides no warranty or guarantee of the accuracy or completeness of information in this document.
--- NOTE | 2024-03-18 15:48 | ED_ITS ---
HPI - URI/Sore Throat General Chief Complaint: Upper Respiratory Infection Stated Complaint: URTI COMPLAINTS Time Seen by Provider: 03/18/24 14:58 Source: patient Limitations: no limitations History of Present Illness HPI Narrative: The patient is coming to us with upper respiratory infection symptoms of runny nose in addition to a cough although she have no shortness of breath no other concerns She is coming as a part of getting checked while her grand son getting checked too Related Data Home Medications ?Medication ?Instructions ?Recorded ?Confirmed amlodipine 10 mg tablet (Norvasc) 10 mg PO DAILY 09/10/22 03/02/24 biotin 1 mg capsule 5 mg PO DAILY 09/10/22 03/02/24 cariprazine 4.5 mg capsule 4.5 mg PO Q24H 09/10/22 03/02/24 (Vraylar) cetirizine 10 mg tablet (24Hour 10 mg PO DAILY PRN allergy symptoms 09/10/22 03/02/24 Allergy) clonazepam 1 mg tablet 1 mg PO Q12H 09/10/22 03/02/24 duloxetine 60 mg capsule,delayed 60 mg PO BID 09/10/22 03/02/24 release ferrous sulfate 325 mg (65 mg 325 mg PO BID 09/10/22 03/02/24 iron) tablet (FeroSul) losartan 50 mg tablet (Cozaar) 100 mg PO DAILY 09/10/22 03/02/24 magnesium 200 mg tablet 400 mg PO QDAY 09/10/22 03/02/24 melatonin 12 mg tablet 12 mg PO .HS PRN sleep 09/10/22 03/02/24 omeprazole 20 mg capsule,delayed 20 mg PO QDAY 09/10/22 03/02/24 release ropinirole 4 mg tablet 4 mg PO QDAY 09/10/22 03/02/24 trazodone 150 mg tablet 150 mg PO .HS 09/10/22 03/02/24 fluticasone propionate 50 1 spray intranasal DAILY PRN 10/20/23 03/02/24 mcg/actuation nasal allergy symptoms spray,suspension (Flonase Allergy Relief) spironolactone 50 mg tablet 50 mg PO DAILY 10/20/23 03/02/24 gabapentin 300 mg capsule 300 mg PO BID 11/03/23 03/02/24 calcium citrate 200 mg PO QID 11/04/23 03/02/24 carvedilol 12.5 mg tablet 12.5 mg PO Q12H 11/04/23 03/02/24 multivitamin 1 tab PO DAILY 11/04/23 03/02/24 Previous Rx's ?Medication ?Instructions ?Recorded tizanidine 2 mg tablet 2 mg PO TID PRN muscle spasticity 10/01/23 #90 tabs Allergies Allergy/AdvReac Type Severity Reaction Status Date / Time levetiracetam (From Keppra) Allergy Severe Unknown Verified 03/02/24 02:13 adhesive Allergy Intermediate Blister Verified 03/02/24 02:13 Penicillins Allergy Intermediate Unknown Verified 03/02/24 02:13 tetracycline Allergy Intermediate Unknown Verified 03/02/24 02:13 eszopiclone (From Lunesta) Allergy Unknown Verified 03/02/24 02:13 milnacipran (From Savella) AdvReac Intermediate Agitated Verified 03/02/24 02:13 prochlorperazine (From AdvReac Intermediate Agitated Verified 03/02/24 02:13 Compazine) Review of Systems ROS Status of ROS 10 or more systems reviewed and unremark able except as noted in history and below PFSH PFSH Medical History FH: bariatric surgery ?Z84.89 - Family history of other specified conditions (ICD-10) Upper back pain ?M54.9 - Dorsalgia, unspecified (ICD-10) Osteoarthritis ?M19.90 - Unspecified osteoarthritis, unspecified site (ICD-10) Neck pain ?M54.2 - Cervicalgia (ICD-10) Low back pain ?M54.50 - Low back pain, unspecified (ICD-10) Fibromyalgia ?M79.7 - Fibromyalgia (ICD-10) Bipolar 1 disorder ?F31.9 - Bipolar disorder, unspecified (ICD-10) Acid reflux ?K21.9 - Gastro-esophageal reflux disease without esophagitis (ICD-10) Obesity ?E66.9 - Obesity, unspecified (ICD-10) Sleep apnea ?G47.30 - Sleep apnea, unspecified (ICD-10) Heart murmur ?R01.1 - Cardiac murmur, unspecified (ICD-10) High cholesterol ?E78.00 - Pure hypercholesterolemia, unspecified (ICD-10) Hypertension ?I10 - Essential (primary) hypertension (ICD-10) Surgical History S/P dilatation and curettage ?Z98.890 - Other specified postprocedural states (ICD-10) H/O breast biopsy ?Z98.890 - Other specified postprocedural states (ICD-10) S/P ORIF (open reduction internal fixation) fracture ?Z98.890 - Other specified postprocedural states (ICD-10) ?Z87.81 - Personal history of (healed) traumatic fracture (ICD-10) Hx of laparoscopic gastric banding ?Z98.84 - Bariatric surgery status (ICD-10) History of tonsillectomy and adenoidectomy ?Z90.89 - Acquired absence of other organs (ICD-10) History of appendectomy ?Z90.49 - Acquired absence of other specified parts of digestive tract (ICD- 10) History of hemilaminectomy ?Z98.890 - Other specified postprocedural states (ICD-10) History of cholecystectomy ?Z90.49 - Acquired absence of other specified parts of digestive tract (ICD- 10) Previous section ?Z98.891 - History of uterine scar from previous surgery (ICD-10) Social History Smoking status: Former smoker Little interest or pleasure in doing things: not at all Feeling down, depressed, or hopeless: not at all Exam Narrative Exam Narrative: Nurses notes and vital signs reviewed and patient is not hypoxic. General: Well-appearing and in no apparent distress. Skin: Warm, dry, no pallor noted. No rash. Head: Normocephalic, atraumatic. Neck: Supple, non-tender. Eye: Pupils are equal, round and EOMI. No scleral icterus. Ears, Nose, Mouth, and Throat: TM are clear, no nasal mucosal hypertrophy. Oral mucosa is moist, no posterior oropharynx erythema, uvula is mid-line Cardiovascular: Regular Rate and Rhythm without murmur, gallop or rub. Respiratory: No accessory muscle use or respiratory distress. Lungs are clear to auscultation, no wheezing, rales or rhonchi Chest Wall: no tenderness Back: No midline thoracic or lumbar vertebral tenderness. No CVA tenderness Musculoskeletal: normal ROM, no calf or popliteal tenderness, no lower extremity edema/swelling GI: Abdomen is soft, non-distended. Normal bowel sounds. No masses appreciated. No tenderness to palpation. No rebound, guarding, or rigidity noted. Neurological: A&O x4. No cranial nerve dysfunction observed. No truncal ataxia. Moves all extremities. Sensation intact. Psychiatric: Cooperative and interactive. Normal mood and affect. Constitutional Vital Signs, click to edit/add: Last Vital Signs Temp 98.1 F 03/18/24 14:53 Pulse 70 03/18/24 14:53 Resp 18 03/18/24 14:53 BP 120/85 03/18/24 14:53 Pulse Ox 98 03/18/24 14:53 O2 Del Method Room Air 03/18/24 14:53 Course Vital Signs Vital signs: Vital Signs Temperature 98.1 F 03/18/24 14:53 Pulse Rate 70 03/18/24 14:53 Respiratory Rate 18 03/18/24 14:53 Blood Pressure 120/85 03/18/24 14:53 Pulse Oximetry 98 03/18/24 14:53 Oxygen Delivery Method Room Air 03/18/24 14:53 Temperature 98.1 F 03/18/24 14:53 Pulse Rate 70 03/18/24 14:53 Respiratory Rate 18 03/18/24 14:53 Blood Pressure 120/85 03/18/24 14:53 Pulse Oximetry 98 03/18/24 14:53 Oxygen Delivery Method Room Air 03/18/24 14:53 MDM - URI/Sore Throat MDM Narrative Medical decision making narrative: The patient examination is benign she is presenting with mild viral upper respiratory tract symptoms Right now the patient just continue supportive care The patient is to follow up with primary care physician in next 2-3 days or to return to the emergency department should any of the signs or symptoms worsen or new symptoms develop. The patient agrees with the following Diagnosis and Treatment plan and the patient will be discharged home. Discharge Plan Discharge Chief Complaint: Upper Respiratory Infection Clinical Impression: Viral infection Patient Disposition: Home, Self-Care Time of Disposition Decision: 15:49 Condition: Good Prescriptions / Home Meds: No Action clonazepam 1 mg tablet 1 mg PO Q12H omeprazole 20 mg capsule,delayed release(DR/EC) 20 mg PO QDAY ropinirole 4 mg tablet 4 mg PO QDAY duloxetine 60 mg capsule,delayed release(DR/EC) 60 mg PO BID Vraylar 4.5 mg capsule 4.5 mg PO Q24H biotin 1 mg capsule 5 mg PO DAILY ferrous sulfate [FeroSul] 325 mg (65 mg iron) tablet 325 mg PO BID losartan [Cozaar] 50 mg tablet 100 mg PO DAILY magnesium 200 mg tablet 400 mg PO QDAY melatonin 12 mg tablet 12 mg PO .HS PRN (Reason: sleep) amlodipine [Norvasc] 10 mg tablet 10 mg PO DAILY cetirizine [24Hour Allergy] 10 mg tablet 10 mg PO DAILY PRN (Reason: allergy symptoms) trazodone 150 mg tablet 150 mg PO .HS tizanidine 2 mg tablet 2 mg PO TID PRN (Reason: muscle spasticity) Qty: 90 2RF gabapentin 300 mg capsule 300 mg PO BID carvedilol 12.5 mg tablet 12.5 mg PO Q12H calcium citrate 200 mg (950 mg) tablet 200 mg PO QID multivitamin Tablet 1 tab PO DAILY fluticasone propionate [Flonase Allergy Relief] 50 mcg/actuation spray,suspension 1 spray intranasal DAILY PRN (Reason: allergy symptoms) Rx Instructions: administer into each nostril spironolactone 50 mg tablet 50 mg PO DAILY Print Language: Martiniquais Instructions: Viral Syndrome (ED) Referrals: Adelaida Carrion [employer] [Primary Care Provider] - 1 week
== END 2024-03-18 16:06 | disposition home or self-care (01) ==
PROVIDERS: Emergency Provider Emergency Medicine; PCP Nurse Practitioner
DX: B34.9 Viral infection, unspecified (principal); Z90.49 Acquired absence of other specified parts of digestive tract; Z87.891 Personal history of nicotine dependence
CPT/HCPCS: 99281

== ENCOUNTER 2024-03-23 14:08 | Outpatient (OUT) | payer MEDICARE, SELFPAY ==
--- NOTE | 2024-03-23 14:36 | P.CN_ITS ---
Consult Note: HPI Data of Consult Patient: known to practice within the last 3 years Consult date: 01/25/24 Requesting Physician: Bhakti Culp NP Primary Care Provider: Adelaida Carrion NP Consult Narrative Reason for consult: midback pain Narrative: 63yof who presents for assessment. recently underwent right and left T10-11 T11- 12 RFA with >90% improvement ongoing. pain today 0/10 increasing to 1/10. cc:: CC: Bhakti Culp NP Review of Systems ROS Status of ROS 10 or more systems reviewed and unremark able except as noted in history and below Musculoskeletal Denies: back pain PFSH PFSH Medical History FH: bariatric surgery ?Z84.89 - Family history of other specified conditions (ICD-10) Upper back pain ?M54.9 - Dorsalgia, unspecified (ICD-10) Osteoarthritis ?M19.90 - Unspecified osteoarthritis, unspecified site (ICD-10) Neck pain ?M54.2 - Cervicalgia (ICD-10) Low back pain ?M54.50 - Low back pain, unspecified (ICD-10) Fibromyalgia ?M79.7 - Fibromyalgia (ICD-10) Bipolar 1 disorder ?F31.9 - Bipolar disorder, unspecified (ICD-10) Acid reflux ?K21.9 - Gastro-esophageal reflux disease without esophagitis (ICD-10) Obesity ?E66.9 - Obesity, unspecified (ICD-10) Sleep apnea ?G47.30 - Sleep apnea, unspecified (ICD-10) Heart murmur ?R01.1 - Cardiac murmur, unspecified (ICD-10) High cholesterol ?E78.00 - Pure hypercholesterolemia, unspecified (ICD-10) Hypertension ?I10 - Essential (primary) hypertension (ICD-10) Surgical History S/P dilatation and curettage ?Z98.890 - Other specified postprocedural states (ICD-10) H/O breast biopsy ?Z98.890 - Other specified postprocedural states (ICD-10) S/P ORIF (open reduction internal fixation) fracture ?Z98.890 - Other specified postprocedural states (ICD-10) ?Z87.81 - Personal history of (healed) traumatic fracture (ICD-10) Hx of laparoscopic gastric banding ?Z98.84 - Bariatric surgery status (ICD-10) History of tonsillectomy and adenoidectomy ?Z90.89 - Acquired absence of other organs (ICD-10) History of appendectomy ?Z90.49 - Acquired absence of other specified parts of digestive tract (ICD- 10) History of hemilaminectomy ?Z98.890 - Other specified postprocedural states (ICD-10) History of cholecystectomy ?Z90.49 - Acquired absence of other specified parts of digestive tract (ICD- 10) Previous section ?Z98.891 - History of uterine scar from previous surgery (ICD-10) Social History Smoking status: Former smoker Little interest or pleasure in doing things: not at all Feeling down, depressed, or hopeless: not at all Meds Home Medications and Allergies Home Medications ?Medication ?Instructions ?Recorded ?Confirmed ?Type amlodipine 10 mg tablet (Norvasc) 10 mg PO DAILY 09/10/22 03/02/24 History biotin 1 mg capsule 5 mg PO DAILY 09/10/22 03/02/24 History cariprazine 4.5 mg capsule 4.5 mg PO Q24H 09/10/22 03/02/24 History (Vraylar) cetirizine 10 mg tablet (24Hour 10 mg PO DAILY PRN allergy symptoms 09/10/22 03/02/24 History Allergy) clonazepam 1 mg tablet 1 mg PO Q12H 09/10/22 03/02/24 History duloxetine 60 mg capsule,delayed 60 mg PO BID 09/10/22 03/02/24 History release ferrous sulfate 325 mg (65 mg 325 mg PO BID 09/10/22 03/02/24 History iron) tablet (FeroSul) losartan 50 mg tablet (Cozaar) 100 mg PO DAILY 09/10/22 03/02/24 History magnesium 200 mg tablet 400 mg PO QDAY 09/10/22 03/02/24 History melatonin 12 mg tablet 12 mg PO .HS PRN sleep 09/10/22 03/02/24 History omeprazole 20 mg capsule,delayed 20 mg PO QDAY 09/10/22 03/02/24 History release ropinirole 4 mg tablet 4 mg PO QDAY 09/10/22 03/02/24 History trazodone 150 mg tablet 150 mg PO .HS 09/10/22 03/02/24 History tizanidine 2 mg tablet 2 mg PO TID PRN muscle spasticity 10/01/23 03/02/24 Rx #90 tabs fluticasone propionate 50 1 spray intranasal DAILY PRN 10/20/23 03/02/24 History mcg/actuation nasal allergy symptoms spray,suspension (Flonase Allergy Relief) spironolactone 50 mg tablet 50 mg PO DAILY 10/20/23 03/02/24 History gabapentin 300 mg capsule 300 mg PO BID 11/03/23 03/02/24 History calcium citrate 200 mg PO QID 11/04/23 03/02/24 History carvedilol 12.5 mg tablet 12.5 mg PO Q12H 11/04/23 03/02/24 History multivitamin 1 tab PO DAILY 11/04/23 03/02/24 History Allergies Allergy/AdvReac Type Severity Reaction Status Date / Time levetiracetam (From Keppra) Allergy Severe Unknown Verified 03/02/24 02:13 adhesive Allergy Intermediate Blister Verified 03/02/24 02:13 Penicillins Allergy Intermediate Unknown Verified 03/02/24 02:13 tetracycline Allergy Intermediate Unknown Verified 03/02/24 02:13 eszopiclone (From Lunesta) Allergy Unknown Verified 03/02/24 02:13 milnacipran (From Savella) AdvReac Intermediate Agitated Verified 03/02/24 02:13 prochlorperazine (From AdvReac Intermediate Agitated Verified 03/02/24 02:13 Compazine) Exam Narrative Exam Narrative: Psych-alert and oriented x 3. Attentive and appropriate, constitutionally normal, displays normal mood and affect per situation.? There are no obvious deficits in memory, reasoning, or intellect.? Skin-no obvious rashes, bruising, erythema noted to the patient's area of pain. Extremities- extremities are warm with minimal edema and palpable pulses. Thoracic- no tenderness to palpation noted in the thoracic spine and paraspinal musculature.? no pain is elicited with extension, and lateral rotation of the thoracic spine. Range of motion is intact Facet loading maneuvers are negative bilaterally Coordination remains intact.? Gait remains non-antalgic. Assessment and Plan Assessment and Plan (1) Thoracic spondylosis: Plan right and left T10-11 T11-12 facet RFA providing significant improvement ongoing continue f/u with neurology and PCP f/u 6 months, sooner if needed
== END 2024-03-23 14:09 | disposition home or self-care (01) ==
LOC: PM 14:08
PROVIDERS: PCP Nurse Practitioner; Visit Provider Nurse Practitioner
DX: M47.814 Spondylosis without myelopathy or radiculopathy, thoracic region (principal)
CPT/HCPCS: G0463

== ENCOUNTER 2024-05-04 08:33 | Outpatient (OUT) | payer MEDICARE, SELFPAY ==
--- OUTSIDE RECORDS SUMMARY | 2024-05-04 08:50 | XMS_ITS | CCD ---
Author Organization [facility] Care Team Providers Care Bellows Filler Name Role Phone EBRAHEIM, SUKI Admitting Unavailable EBRAHEIM, SUKI Attending Unavailable AICHHOLZ, ADELAIDA Referring Unavailable AICHHOLZ, ADELAIDA Primary Care Unavailable NM Procedure Practitioner Unavailab SUKI Jacob Surgeon Unavailable NM Procedure Practitioner Unavailab CHAPARRITA Goncalves Surgeon Unavailable BRIDGETTE MACEDO Admitting Unavailable BRIDGETTE MACEDO Attending Unavailable AICHHOLZ, SPINNER BOX ADELAIDA Primary Care Unavailable NIXON ., DR FINA Iverson Admitting Unavailable NIXON ., DR FINA Iverson Attending Unavailable AICHHOLZ, [place]INNER [place]OX ADELAIDA Primary Care Unavailable MCDANIEL ., ZELDA Consulting Unavailable LAKSHMIPATHY ., NARENDRANATH Consulting Paula vailable LAKSHMIPATHY ., NARENDRANATH Admitting Paula vailable LAKSHMIPATHY ., NARENDRANATH Attending Paula vailable AICHHOLZ, SPINNER [place] ADELAIDA Primary Care Unavailable LAKSHMIPATHY ., NARENDRANATH Consulting Paula vailable AICHHOLZ, [place] ADELAIDA Primary Care Unavailable MARKER ., DR CHAUDHRY Admitting Unavailable MARKER ., DR CHAUDHRY Attending Unavailable MARKER ., DR CHAUDHRY Consulting Unavailable AICHHOLZ, SPINNER [place]OX ADELAIDA Admitting Unavailable AICHHOLZ, SPINNER [place]OX ADELAIDA Attending Unavailable AICHHOLZ, SP[place] ADELAIDA Primary Care Unavailable NIXON ., DR FINA Iverson Admitting Unavailable NIOXN ., DR FINA Iverson Attending Unavailable AICHHOLZ, [place] ADELAIDA Primary Care Unavailable MCDANIEL ., ZELDA Consulting Unavailable NIXON ., DR FINA Iverson Admitting Unavailable NIXON ., DR FINA Iverson Attending Unavailable AICHHOLZ, [place] ADELAIDA Primary Care Unavailable MCDANIEL ., ZELDA Consulting Unavailable AICHHOLZ, SPINNER [place] ADELAIDA Admitting Unavailable AICHHOLZ, SPINNER [place]OX ADELAIDA Attending Unavailable AICHHOLZ, SP[place]NER [place] ADELAIDA Primary Care Unavailable AICHHOLZ, SPINNER [place] ADELAIDA Consulting Unavailable AICHOLZ, SPINNER [place]OX ADELAIDA Admitting Unavailable AICHHOLZ, SPINNER [place] ADELAIDA Attending Unavailable AICHOLZ, [facility] ADELAIDA Primary Care Unavailable AICHHOLZ, SPINNER [place] ADELAIDA Consulting Unavailable MISC, DR COTE Admitting Unavailable MISC, DR COTE Attending Unavailable AICHOLZ, [facility] ADELAIDA Primary Care Unavailable AICHHOLZ, SPINNER [place] ADELAIDA Consulting Unavailable ELYSSA, DR COTE Consulting Unavailable STARR, DR KINGSLEY Atkins Consulting Unavailable NIXON ., DR FINA Iverson Admitting Unavailable NIXON ., DR FINA Iverson Attending Unavailable AICHOLZ, [facility] ADELAIDA Primary Care Unavailable MCDANIEL ., ZELDA Consulting Unavailable NIXON ., DR FINA Iverson Admitting Unavailable NIXON ., DR FINA Iverson [facility]ending [facility] Primary Care Unavailable NIXON ., DR FINA Iverson Consulting Unavailable OMID LAY Consulting Unavailable NIXON ., DR FINA Iverson Admitting Unavailable NIXON ., DR FINA Iverson Attending Unavailable [facility], [facility] Primary Care Unavailable MCDANIEL ., ZELDA Consulting [facility]available [facility] Primary Care Unavailable HALKER ., ARIAN Admitting Unavailable HALKER ., ARIAN Attending Unavailable LAKSHMIPATHY ., NARENDRANATH Consulting Paula vailable HALKER ., ARIAN Consulting Unavailable LAKSHMIPATHY ., NARENDRANATH Admitting Paula vailable LAKSHMIPATHY ., NARENDRANATH Attending Paula vailable [facility], [facility] Primary Care Unavailable LAKSHMIPATHY ., NARENDRANATH Consulting Paula vailable AICHOLZ, [place] ADELAIDA Admitting Unavailable AICHOLZ, SP[place] ADELAIDA Attending Unavailable AICHOLZ, [place] ADELAIDA Primary Care Unavailable AICHHOLZ, SP[place] ADELAIDA Consulting Unavailable BRIDGETTE MACEDO Admitting Unavailable BRIDGETTE MACEDO Attending Unavailable AICHOLZ, [place] ADELAIDA Primary Care Unavailable STARR, DR KINGSLEY Atkins Consulting Unavailable BRIDGETTE MACEDO Consulting Unavailable GILMER NEVES Admitting Unavailable GILMER NEVES Attending Unavailable PURA, GILMER Consulting Unavailable AICHOLZ, [place] ADELAIDA Primary Care Unavailable AICHOLZ, [place] ADELAIDA Primary Care Unavailable DR WILLI RINALDI Admitting Unavailable DEEJAY, DR WILLI Atkins Attending Unavailable DR WILLI RINALDI Consulting Unavailable AICHOLZ, [place] ADELAIDA Primary Care Unavailable ALMAZ ., DANNY Admitting Unavailable ALMAZ ., DANNY Attending Unavailable DR KINGSLEY CLEMENTS Consulting Unavailable ALMAZ ., DANNY Consulting Unavailable LAKSHMIPATHY ., NARENDRANATH Admitting Paula vailable LAKSHMIPATHY ., NARENDRANATH Attending Paula vailable AICHHOLZ, SP[place] ADELAIDA Primary Care Unavailable AICHHOLZ, SPIN[place] ADELAIDA Admitting Unavailable AICHHOLZ, SPINNER [place] ADELAIDA Attending Unavailable AICHHOLZ, SP[place] ADELAIDA Primary Care Unavailable AICHHOLZ, SPINNER [place]OX ADELAIDA Admitting Unavailable AICHHOLZ, SPINNER [place]OX ADELAIDA Attending Unavailable AICHHOLZ, SP[place] ADELAIDA Primary Care Unavailable AICHHOLZ, SP[place] ADELAIDA Consulting Unavailable ZIEBER, DR KINGSLEY Atkins Consulting Unavailable HALKER ., ARIAN Admitting Unavailable HALKER ., ARIAN Attending Unavailable AICHHOLZ, SPINNER [place] ADELAIDA Primary Care Unavailable Aichholz, Adelaida J Primary Care Provider MD Gaudencio Monk Admit Provider MD Gaudencio Monk Attending Provider JOHANN Vieira Other Provider Unavailable JOHANN Pina Other Provider Unavailable JOHANN Hurtado Other Provider Unavailable JOHANN Crooks Other Provider Unavailable JOHANN Mejias Other Provider Unavailable JOHANN Kim Other Provider Unavailable MD Walker Pringle Other Provider Dilans, EMPLOYEE RELATIONS CONSULTANT Adelaida Huddleston Other Provider DO Jessica Murillo Other Provider MD Obdulio Bragg Other Provider DO Joon Cristina Other Provider MD Torin Robert Other Provider MD Dawn Barrera Other Provider [phone] Karlene ANP- Mari Other Provider [phone] MD Sofi Almanzar Other Provider MD Sharad Gallegos Other Provider MD Aby Cain Other Provider MD Hillary Crarera Other Provider DO Julio César Mckeon Other [...] Provider MD Jace Graham Attending Provider Sheyla FIFTH GRADE TEACHER, Adelaida Unavailable José Luis Roberts MD Primary Care Provider [phone] Sheyla FIFTH GRADE TEACHER, Adelaida Unavailable Daniela GRAHAM, Miriam Unavailable Moises VALEN, Diana Unavailable Unavailable Unallocated , Familias Provider Primary Care Elizabeth kellee Aichholz FIFTH GRADE TEACHER, Adelaida Unavailable Jamee JAIMES, Syeda King Attending Unavailable Jamee JAIMES, Syeda King Attending Unavailable José Luis Roberts MD Primary Care Provider [phone] Bong Rosado MA Unavailable Unavailable Aida FLOORING PROFESSIONAL, Ardana Unavailable Unavailable AICHHOLZ, ADELAIDA Attending Unavailable ASHLEIGH HINES Attending Unavailable AICHHOLZ, ADELAIDA Attending Unavailable AICHHOLZ, ADELAIDA Attending Unavailable AICHHOLZ, ADELAIDA Attending Unavailable AICHHOLZ, ADELAIDA Attending Unavailable AICHHOLZ, ADELAIDA Attending Unavailable SONAM BROWN Attending Unavailable AICHHOLZ, ADELAIDA Attending Unavailable SONAM BROWN Attending Unavailable JUANY CABALLERO Attending Unavailable AICHHOLZ, ADELAIDA Attending Unavailable AICHHOLZ, ADELAIDA Attending Unavailable AICHHOLZ, ADELAIDA Attending Unavailable JUANY LEGGETT Attending Unavailable RACHEL MITCHELL Attending Unavailable DAVID FOSTER Attending Unavailable JUANY LEGGETT Referring Unavailable AICHHOLZ, ADELAIDA Attending Unavailable RACHEL MITCHELL Referring Unavailable Eduardo Monk Admitting Unavailab Eduardo Connolly Attending Unavailab le Adelaida Carrion J Primary Care Unavailable Yinghrhonda, Adelaida Mcnair Primary Care Unavailable Rob Lake Attending Unavailable Malinda Rosales Consulting Unavailable Delta Gan Admitting Unavailable David Foster Consulting Unavailable Miriam Suarez Consulting Unavailable Kingsley Livingston Consulting Unavailable Kar Burt Consulting Unavailab Dennis Hicks Consulting Unavailable Juany Caballero Consulting Unavailable Inna Melendez Consulting Unavailable Rocio Duncan Consulting Unavailable Chuck Hinkle Consulting Unavailable Allergies Allergy Classification Reported Allergen(s) Allergy Type Date of Onset Reaction(s) Facility (7 sources) Adhesive Tape; Translations: [ADHESIVE TAPE] Propensity to adverse reactions (disorder) 04-06-19 14 rash [facility] Repository (3 sources) levETIRAcetam; Translations: [KEPPRA] Drug Allergy 07-02-19 19 [facility] (3 sources) milnacipran; Translations: [SAVELLA] Drug Allergy 03-14-20 13 [facility] (1 source) Penicillin; Translations: [PENICILLIN] Drug Allergy 01-16-20 18 [facility] (5 sources) Prochlorperazin e; Translations: [COMPAZINE] Drug Allergy 03-14-20 13 agitation [facility] (20 sources) Tetracycline; Translations: [TETRACYCLINE] Drug Allergy 04-06-19 13 Hives, Unknown [facility] (4 sources) Penicillins Drug allergy (disorder) 04-06-19 13 Unknown Reaction [facility] Repository (20 sources) levETIRAcetam; Translations: [levetiracetam] Drug Allergy 12-13-19 22 Hallucinations , Other [facility] (20 sources) milnacipran; Translations: [milnacipran] Drug Allergy 12-13-19 22 hives, Hallucinations , Other, Unknown [facility] (20 sources) Prochlorperazin e; Translations: [prochlorperazi ne] Drug Allergy 12-13-19 22 Unknown, [facility] (2 sources) Penicillin G Drug Allergy as a child [facility] Other (2 sources) Tetracaine Drug Allergy Unknown [facility] Other (20 sources) Penicillins Drug Intolerance 12-13-19 22 Anaphylaxis [facility] (20 sources) Other Propensity to adverse reactions 12-13-19 22 Other [facility] (20 sources) Wound Dressing Adhesive Drug Allergy 09-20-19 23 Rash, Unknown [facility] (20 sources) Eszopiclone Drug Allergy 09-21-19 24 Hallucinations , Anaphylaxis [facility] (1 source) Penicillin Drug Allergy 03-02-20 24 [facility] (1 source) Penicillins Drug allergy (disorder) 03-02-20 24 [facility] Rep[facility] (1 source) Tetracaine Drug Allergy 03-02-20 [facility] Repository Medications Current Medications Medication Drug Class(es) Dates Sig (Normalized) Sig (Original) amLODIPine 10 mg oral tablet (20 sources) Dihydropyridine Calcium Channel Jim Start: 10-05-2023 End: 04-03-2024 take 1 tablet by mouth once daily amLODIPine (Norvasc) 10 MG tablet Indications: Essential (primary) hypertension (CMS/HCC) Take 1 tablet (10 mg) by mouth Daily 30 tablet 5 02/24/2024 Active Start: 11-17-2022 take 10 mg by [...] 5 MG tabl et Pt taking OTC (Sarsys) Active biotin 1 MG caps ule Biotin [...] (CITRACAL + D PO) Pt taking OTC (Edventures) Active Calcium Citrate- Vitamin D (CITRACAL + [...] (20 sources) alpha-Adrenergic Jim, beta-Adrenergic Jim Start: 10-05-2023 End: 04-03-2024 take 1 tablet by mouth in the morning carvedilol (Coreg) 12.5 MG tablet Indications: Essential (primary) hypertension (CMS/HCC) Take 1 tablet (12.5 mg) by mouth in the morning and 1 tablet (12.5 mg) in the evening. Take with meals. 180 tablet 1 01/04/2024 Active Start: 04-29-2023 End: 05-29-2023 take 1 [...] tablet (20 sources) Histamine-1 Receptor Antagonist Start: 10-05-2023 End: 04-03-2024 take 1 tablet by mouth once daily cetirizine (ZyrTEC) 10 MG tablet Indications: Allergic rhinitis, unspecified Take 1 tablet (10 mg) by mouth Daily 30 tablet 5 02/24/2024 Active Start: 11-17-2022 take 10 mg by mouth once daily Cetirizine Active 10 MG PO Daily November 16, 2022 11:00pm clonazePAM 0.5 mg oral tablet (20 sources) Benzodiazepine Start: 03-10-2024 End: 05-12-2024 take 1 tablet by mouth in the morning clonazePAM (KlonoPIN) 0.5 MG tablet Indications: Restless leg Take 1 tablet (0.5 mg) by mouth in the morning and 1 tablet (0.5 mg) before bedtime. Due 04/13/24. 60 tablet 1 04/12/2024 05/12/2024 Active Start: 12-13-2023 End: 03-10-2024 take 1 tablet by mouth twice daily as needed for anxiety clonazePAM (KlonoPIN) 1 MG tablet Indications: Restless leg Take 1 tablet (1 mg) by mouth 2 (two) times a day as needed for anxiety Due 03/08/24 60 tablet 03/07/2024 03/10/2024 Discontinued (Reorder) Start: 10-16-2023 End: 12-08-2023 take 1 tablet by mouth twice daily as needed for anxiety clonazePAM (KlonoPIN) 1 MG tablet Indications: Restless leg Take 1 tablet (1 mg) by mouth 2 (two) times a day as needed for anxiety Do not start before October 16, 2023. 60 tablet 10/16/2023 12/08/2023 Discontinued (Reorder) Start: 11-17-2022 take 1 mg [...] each nostril Daily 16 g 5 02/29/2024 Active Start: 10-05-2023 End: 02-03-2024 take 2 spray(s) nasal route [...] (20 sources) Anti-epileptic Agent Start: 10-14-2023 End: 07-11-2024 take 1 capsule by mouth in the morning gabapentin (Neurontin) 300 MG capsule Indications: Restless leg Take 1 capsule (300 mg) by mouth in the morning and 1 capsule (300 mg) before bedtime. Due now. 180 capsule 1 04/12/2024 07/11/2024 Active Start: 05-28-2018 End: 11-17-2022 take 1200 [...] application topically in the morning. 0 Active lacosamide 50 mg oral tablet (7 sources) Anti-epileptic Agent Start: take 1 tablet by mouth in the morning lacosamide (Vimpat) 50 MG tablet Indications: Transient alteration of awareness Take 1 tablet (50 mg) by mouth in the morning and 1 tablet (50 mg) before bedtime. Due now. 60 tablet 2 04/12/2024 Active Start: 03-10-2024 End: 04-12-2024 take 1 tablet by mouth in the morning lacosamide (Vimpat) 50 MG tablet Take 50 mg by mouth in the morning and 50 mg before bedtime. 03/10/2024 04/12/2024 Discontinued (Reorder) losartan potassium 100 mg oral tablet (20 sources) Angiotensin 2 Receptor Jim Start: 10-05-2023 End: 04-03-2024 take 1 tablet by mouth once daily losartan (Cozaar) 100 MG tablet Indications: Essential (primary) hypertension (CMS/HCC) Take 1 tablet (100 mg) by mouth Daily 30 tablet 5 02/24/2024 Active Start: 11-17-2022 take 100 mg by mouth once lissett y Losartan Active 100 MG PO Daily November 16, 2022 11:00pm Magnesium (20 sources) Magnesium 400 MG capsule Pt taking OTC(Earnix) Active Magnesium 400 MG capsule magnesium 0 [...] s-Minerals (BARIATRIC MULTIVITAMINS/IRON PO) Pt taking OTC (Sarsys) Active Multiple Vitamin s-Minerals (BARIATRIC MULTIVITAMINS/IRON PO) Bariatric Multivitamins/Iron 0 Active Ekdfdxemjtiv-Mnz-Bjez-Fa-Vit K (Bariatric Multivitamins) 45 mg iron- 800 mcg-120 mcg Capsule (2 sources) Start: 11-17-2022 take 1 capsule by mouth once daily Xrbgcthixdcg-Wtj-Gcsj-Fa-Vit K (Bariatric Multivitamins) 45 mg iron- 800 mcg-120 mcg Capsule Active 1 CAP PO Daily November 16, 2022 11:00pm Start: 11-17-2022 take 1 capsule by mo uth once daily Wtednnnwzgcp-Gxz-Ikjo-Fa-Vit K (Bariatri c Multivitamins) 45 mg iron- 800 mcg-120 mcg Capsule Active 1 CAP PO Daily [place] 14th, 2023 12:00am nystatin [id number] unt/ml topical cream (20 sources) Polyene Antifungal Start: 03-07-2024 nystatin (M ycostatin) cream 03/07/2024 Active nystatin (Mycost atin) [id number] UNIT/GM powder Apply 1 application topically in the morning and 1 application before bedtime. Active OLANZapine 5 mg oral tablet (14 sources) Atypical Antipsychotic Start: 03-07-2024 End: 03-16-2024 take 0.5 tablet by mouth every six hours as needed OLANZapine (ZyPREXA) 5 MG tablet TAKE 1/2 (ONE-HALF) OF A TABLET BY MOUTH EVERY 6 HOURS NEEDED 03/07/2024 03/16/2024 Discontinued (Therapy completed) Start: 11-18-2022 take 5 mg by mouth e very six hours Olanzapine Active 5 MG PO Q6H 30 November 17, 2022 11:00pm take 1 tablet by kenyatta th every six hours as needed OLANZapine zydis (ZyPREXA) 5 MG disintegrating tablet Take 5 mg by mouth every 6 (six) hours if needed. 0 Active omeprazole 20 mg delayed release oral capsule (20 sources) Proton Pump Inhibitor Start: 10-05-2023 End: 01-03-2024 take 1 capsule by mouth before mealtime omeprazole (PriLOSEC) [address] capsule Indications: Gastro-esophageal reflux disease without esophagitis Take 1 capsule (20 mg) by mouth in the morning. Take before meals. 90 capsule 1 10/05/2023 Active Start: 11-17-2022 take 20 mg by mouth once daily Omeprazole Active 20 MG PO Daily November 16, 2022 11:00pm rOPINIRole 2 mg oral tablet (20 sources) Nonergot Dopamine Agonist Start: 03-15-2024 End: 06-14-2024 take 1 tablet by mouth at bedtime rOPINIRole (Requip) 2 MG tablet Indications: Restless Leg Syndrome Take 1 tablet (2 mg) by mouth at bedtime 30 tablet 2 03/16/2024 06/14/2024 Active Start: 10-14-2023 End: 03-15-2024 take 1 tablet by mouth at bedtime rOPINIRole (Requip) 4 MG tablet Indications: Restless leg Take 1 tablet (4 mg) by mouth at bedtime 30 tablet 3 03/02/2024 03/15/2024 Discontinued (Reorder) Start: 11-17-2022 take 4 mg by mouth once daily Ropinirole Active 4 MG PO Daily November 16, 2022 11:00pm Start: 06-02-2022 take 1 tablet by kenyatta th every two hours in the evening rOPINIRole (Requip) 4 MG tablet Take 4 mg by mouth in the evening. Take 2 hours prior to bedtime. 0 06/02/2022 Active spironolactone 50 mg oral tablet (20 sources) Aldosterone Antagonist Start: 03-16-2024 End: 04-15-2024 take 1 tablet by mouth once daily spironolactone (Aldactone) 50 MG tablet Indications: Bilateral lower extremity edema Take 1 tablet (50 mg) by mouth Daily 30 tablet 5 03/16/2024 04/15/2024 Active Start: 11-02-2023 End: 03-16-2024 take 2 tablets by mouth once daily spironolactone (Aldactone) 25 MG tablet Indications: Lower extremity edema Take 2 tablets (50 mg) by mouth Daily 60 tablet 2 12/30/2023 01/29/2024 Active sulfamethoxazole 800 mg / trimethoprim 160 mg oral tablet (20 sources) Dihydrofolate Reductase Inhibitor Antibacterial, Sulfonamide Antimicrobial Start: 01-21-2024 End: 03-16-2024 take 1 tablet by mouth once in the morning, then take 1 tablet by mouth once at bedtime sulfamethoxazole-trimethoprim (Bactrim DS) 800-160 MG per tablet Take 1 tablet by mouth in the morning and 1 tablet before bedtime. 01/21/2024 03/16/2024 Discontinued (Therapy completed) tiZANidine 4 mg oral tablet (20 sources) Central alpha-2 Adrenergic Agonist Start: 12-12-2023 take 1 tablet by mouth every eight hours as needed tiZANidine (Zanaflex) 4 MG tablet Take 4 mg by mouth every 8 (eight) hours if needed for muscle spasms 1-2 tablets 12/12/2023 Active Start: 09-14-2023 End: 01-04-2024 take 1 tablet by mouth every eight hours tiZANidine (Zanaflex) 2 MG tablet Take 2 mg by mouth every 8 (eight) hours 09/14/2023 01/04/2024 Discontinued (Therapy completed) Start: 11-17-2022 Tizanidine Act hemant 2 MG PO 09,1400 November 16, 2022 [...] dermatitis, unspecified cause; Translations: [Allergic condition] Onset: 09-14-1911-18-2022 Episodic Anxiety disorders (20 sources) Post-traumatic stress disorder, unspecified; Translations: [Anxiety disorder, unspecified] Onset: 04-29-1905-18-2023 Chronic Cardiac and circulatory congenital anomalies (20 sources) Cerebrovascular disease; Translations: [Other malformations of cerebral vessels] Onset: 05-18-19 Resolved : 03-16-2005-18-2023 Chronic Conduction disorders (7 sources) EKG: right bundle branch block; Translations: [Unspecified right bundle-branch block] Onset: 03-16-20 24 03-16-2024 Chronic Diabetes mellitus without complication (2 sources) [...] (primary) hypertension; Translations: [Hypertensive disorder] Onset: 07-17-19 Resolved : 03-16-20 Chronic Immunizations and screening for infectious disease (20 sources) Encounter for immunization; Translations: [Needs influenza immunization] Onset: 02-22-2001-28-2024 Episodic Mood disorders (20 sources) Bipolar disorder, current episode depressed, severe, without psychotic features; Translations: [Unspecified mood [affective] disorder] Onset: 11-23-19 Resolved : 03-16-2011-17-2022 Chronic Mycoses (20 sources) Candidiasis of skin and nail; Translations: [Candidiasis of skin] Onset: 05-18-19 Episodic Osteoarthritis (20 sources) Primary osteoarthritis, right ankle [...] Onset: 10-11-1910-11-2023 Chronic Other nervous system disorders (4 sources) Disturbance of attention; Translations: [Attention and concentration deficit] 03-14-2024 Chronic Other nervous system disorders (1 source) Encephalopathy, unspecified; Translations: [Encephalopathy, unspecified] Onset: 03-03-20 Chronic Other non-traumatic joint disorders (4 sources) [...] apnea (adult)(pediatric)] 11-20-2022 Chronic Residual codes; unclassified (8 sources) Memory impairment; Translations: [Other amnesia] 03-07-2024 Episodic Residual codes; unclassified (8 sources) Altered mental status; Translations: [Altered mental status, unspecified] 03-11-2024 Episodic Residual codes; unclassified (4 sources) Family history of dementia; Translations: [Family history of other mental and behavioral disorders] 03-14-2024 Episodic Residual codes; unclassified (1 source) Transient alteration of awareness; Translations: [Transient alteration of awareness] 04-12-2024 Episodic Residual codes; unclassified (1 source) Altered mental status, unspecified; Translations: [Altered mental status, unspecified] Onset: 03-03-20 Episodic Spondylosis; intervertebral disc disorders; other back problems (20 sources) Spondylosis without myelopathy or radiculopathy, lumbosacral region; Translations: [Spondylosis without myelopathy or radiculopathy, lumbar region] Onset: 08-24-19 Chronic Spondylosis; intervertebral disc disorders; other back problems (3 sources) Sacrococcygeal disorders, not elsewhere classified; Translations: [Chronic back pain ] Onset: 08-24-1911-20-2022 Episodic Unclassified (3 sources) LOW BACK PAIN, UNSPECIFIED; Translations: [LOW BACK PAIN, UNSPECIFIED] Onset: 06-30-19 Urinary tract infections (20 sources) Urinary tract [...] [Benign paroxysmal vertigo, unspecified ear] Onset: 05-18-2023 Resolved: 03-16-2024 05-18-2023 Episodic Deficiency and other anemia (20 [...] sources) Hemorrhoids; Translations: [Unspecified hemorrhoids] Onset: 05-18-2023 Resolved: 03-16-2024 05-18-2023 Episodic Influenza (20 sources) Influenza; Translations: [Influenza due to unidentified influenza virus with other respiratory manifestations] Onset: 07-14-2023 Resolved: 10-21-2023 10-21-2023 Episodic Malaise and fatigue (20 sources) Asthenia; Translations: [Weakness] Onset: 05-18-2023 Resolved: 05-18-2023 05-31-2018 Episodic Mood disorders (20 sources) Mood disorders; Translations: [DEPRESSION UNSPECIFIED] Onset: 04-29-2022 05-18-2023 Nonmalignant breast conditions (20 sources) Hematoma of [...] Other aftercare (1 source) 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; Translations: [OTH [facility] CURRENT DRUG THERAPY] Onset: 04-29-2022 Episodic Other [...] [Radial styloid tenosynovitis [de Quervain]] Onset: 05-18-2023 Resolved: 03-16-2024 05-18-2023 Episodic Other connective tissue disease (20 sources) Fibromyalgia; Translations: [Fibromyalgia] Onset: 05-18-2023 05-18-2023 Episodic Other connective tissue disease (20 sources) Tendinitis of right forearm; Translations: [Other enthesopathies, not elsewhere classified] Onset: 10-11-2023 Resolved: 03-16-2024 10-11-2023 Episodic Other connective tissue disease (20 [...] Onset: 07-23-2023 Resolved: 10-21-2023 10-21-2023 Episodic Other lower respiratory disease (6 sources) Cough; Translations: [Acute cough] Onset: 07-14-2023 Resolved: 10-21-2023 10-21-2023 Episodic Other nervous system disorders (20 sources) Disorder of brain; 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] Onset: 10-11-2023 Resolved: 03-16-2024 10-11-2023 Chronic Other nervous system disorders (20 sources) Slurred speech; Translations: [Slurred speech] Onset: 05-18-2023 05-18-2023 Episodic Other nervous system disorders (2 sources) Toxic metabolic encephalopathy; Translations: [Toxic metabolic encephalopathy] Onset: 08-26-2023 09-21-2023 Episodic Other non-traumatic joint disorders (4 sources) [...] [Pain in joint, lower leg] Onset: 11-20-2016 Resolved: 03-16-2024 03-25-2023 Episodic Other non-traumatic joint disorders (20 [...] whether with hypoxia or hypercapnia] Onset: 08-26-2023 Resolved: 03-16-2024 09-21-2023 Episodic Screening and history of mental health and substance abuse codes (20 sources) Personal history of nicotine dependence; Translations: [Ex-cigarette smoker] Onset: 07-16-2022 08-19-2023 Episodic Substance-related disorders (20 sources) Tobacco dependence syndrome; Translations: [Nicotine dependence, unspecified, uncomplicated] Onset: 05-18-2023 Resolved: 03-16-2024 05-18-2023 Chronic Unclassified (1 source) LOW BACK PAIN, UNSPECIFIED; Translations: [LOW BACK PAIN, UNSPECIFIED] Onset: 06-26-2022 Viral infection (20 sources) Herpes zoster; Translations: [Zoster without complications] Onset: 05-18-2023 Resolved: 05-18-2023 05-18-2023 Episodic Results Test Name Value Interpretation Reference Range Facility Complete Blood Count Auto Di ffon 03-05-2024 Basophils (Bld) [#/Vol] 0.0 10*3/uL Normal 0.0-0.2 [facility] Comment on above: Result Comment: PERF ORMED BY: [place] [address] PATHOLOGIST [employer] SPECIALIST ADIEL AGUSTIN M.D. Performed By: #### C BC, MG, CMP #### [address] Basophils/100 WBC (Bld) 0.5 % Normal . [facility] Comment on above: Performed By: #### C BC, MG, CMP #### [address] Eosinophils (Bld) [#/Vol] 0.2 10*3/uL Normal 0.0-0.45 [facility] Comment on above: Performed By: #### C BC, MG, CMP #### [address] Eosinophils/100 WBC (Bld) 2.2 % Normal . [facility] Comment on above: Performed By: #### C BC, MG, CMP #### [address] Erythrocyte distribution width (RBC) [Ratio] 14.5 % Normal 11.9-15.3 [facility] Comment on above: Performed By: #### C BC, MG, CMP #### [address] Hematocrit (Bld) [Volume fraction] 43.0 % Normal 34.0-46.4 [facility] Comment on above: Performed By: #### C BC, MG, CMP #### [address] Hemoglobin (Bld) [Mass/Vol] 14.3 g/dL Normal 11.8-15.4 [facility] Comment on above: Performed By: #### C BC, MG, CMP #### [address] Lymphocytes (Bld) [#/Vol] 1.8 10*3/uL Normal 1.00-4.8 [facility] Comment on above: Performed By: #### C BC, MG, CMP #### [address] Lymphocytes/100 WBC (Bld) 18.9 % Normal . [facility] Comment on above: Performed By: #### C BC, MG, CMP #### [address] MCH (RBC) [Entitic mass] 29.0 pg Normal 24.7-34.3 [facility] Comment on above: Performed By: #### C BC, MG, CMP #### [address] MCV (RBC) [Entitic vol] 87.0 fL Normal 80-100 [facility] Comment on above: Performed By: #### C BC, MG, CMP #### [address] Mean Corpuscular HGB Conc 33.4 g/dL Normal 32.0-35.0 [facility] Comment on above: Performed By: #### C BC, MG, CMP #### [address] Monocytes (Bld) [#/Vol] 0.5 10*3/uL Normal 0.0-0.8 [facility] Comment on above: Performed By: #### C BC, MG, CMP #### [address] Monocytes/100 WBC (Bld) 5.5 % Normal . [facility] Comment on above: Performed By: #### C BC, MG, CMP #### [facility] [address] Neutrophils (Bld) [#/Vol] 7.0 10*3/uL Normal 1.8-7.7 [facility] Comment on above: Performed By: #### C BC, MG, CMP #### [facility] [address] [place] [address] [place] Neutrophils/100 WBC (Bld) 72.9 % Normal . [facility] Comment on above: Performed By: #### C BC, MG, CMP #### [facility] [address] NRBC% 0.0 /100{WBC} Normal 0-0.5 [facility] Comment on above: Performed By: #### C BC, MG, CMP #### [facility] [address] [place] [address] Platelet mean volume (Bld) [Entitic vol] 8.9 fL Normal 6.3-10.7 [facility] Comment on above: Performed By: #### C BC, MG, CMP #### [place] [address] [place] Platelets (Bld) [#/Vol] 289 10*3/uL Normal 150-450 [facility] Comment on above: Performed By: #### C BC, MG, CMP #### [facility] [address] [place] [address] [place] RBC (Bld) [#/Vol] 4.94 10*6/uL Normal 3.60-5.00 [facility] Comment on above: Performed By: #### C BC, MG, CMP #### [facility] [address] [place] [address] [place] WBC (Bld) [#/Vol] 9.6 10*3/uL Normal 3.8-11.6 [facility] Comment on above: Performed By: #### C BC, MG, CMP #### [address] [place] [address] [place] Comprehensive Metabolic Pane [place] 03-05-2024 Albumin [Mass/Vol] 4.4 g/dL Normal 3.5-5.7 [facility] Comment on above: Performed By: #### C BC, MG, CMP #### [address] Albumin/Globulin [Mass ratio] 1.3 {ratio} Normal [facility] Comment on above: Performed By: #### C BC, MG, CMP #### [address] ALP [Catalytic activity/Vol] 79 U/L Normal 34-104 [facility] Comment on above: Performed By: #### C BC, MG, CMP #### [address] ALT [Catalytic activity/Vol] 23 U/L Normal 7-52 [facility] Comment on above: Performed By: #### C BC, MG, CMP #### [address] Anion gap [Moles/Vol] 15.4 mmol/L High 6.0-15.0 [facility] Comment on above: Performed By: #### C BC, MG, CMP #### [address] AST [Catalytic activity/Vol] 36 U/L Normal 13-39 [facility] Comment on above: Performed By: #### C BC, MG, CMP #### [address] Bilirubin [Mass/Vol] 0.4 mg/dL Normal 0.3-1.0 [facility] Comment on above: Performed By: #### C BC, MG, CMP #### [address] Calcium [Mass/Vol] 9.5 mg/dL Normal 8.6-10.3 [facility] Comment on above: Performed By: #### C BC, MG, CMP #### [address] Chloride [Moles/Vol] 106 mmol/L Normal 98-107 [facility] Comment on above: Performed By: #### C BC, MG, CMP #### [address] CO2 [Moles/Vol] 23.1 mmol/L Normal 21.0-31.0 [facility] Comment on above: Performed By: #### C BC, MG, CMP #### [address] Creatinine [Mass/Vol] 0.96 mg/dL Normal 0.60-1.20 [facility] Comment on above: Performed By: #### C BC, MG, CMP #### [address] Creatinine Clr Calc Pharmacy 84.51 Normal [facility] Comment on above: Performed By: #### C BC, MG, CMP #### [place] [address] [place] GFR/1.73 sq M.predicted MDRD (S/P/Bld) [Vol rate/Area] mL/min/{1.73_m2} Normal [facility] Comment on above: Performed By: #### C BC, MG, CMP #### [address] Globulin (S) [Mass/Vol] 3.3 g/dL Normal [facility] Comment on above: Performed By: #### C BC, MG, CMP #### [address] Glucose [Mass/Vol] 133 mg/dL High 70-100 [facility] Comment on above: Result Comment: [place] Glucose Reference Range is dependent on time and content of last meal. Glucose of more than 200 mg/dL in a nonstressed, ambulatory subject supports the diagnosis of Diabetes Mellitus. ADA recommended reference range Performed By: #### C BC, MG, CMP #### [place] [address] [place] Potassium [Moles/Vol] 3.5 mmol/L Normal 3.5-5.1 [facility] Comment on above: Performed By: #### C BC, MG, CMP #### [address] Protein [Mass/Vol] 7.7 g/dL Normal 6.4-8.9 [facility] Comment on above: Performed By: #### C BC, MG, CMP #### [address] Sodium [Moles/Vol] 141 mmol/L Normal 136-145 [facility] Comment on above: Performed By: #### C BC, MG, CMP #### [address] Urea nitrogen [Mass/Vol] 18 mg/dL Normal 7-25 [facility] Comment on above: Performed By: #### C BC, MG, CMP #### [address] Magnesiumon 03-05-2024 Magnesium [Mass/Vol] 2.0 mg/dL Normal 1.9-2.7 [facility] Comment on above: Result Comment: PERF ORMED BY: [place] [address] PATHOLOGIST [employer] SPECIALIST ADIEL AGUSTIN M.D. Performed By: #### C BC, MG, CMP #### [address] Complete Blood Count Auto Di ffon 03-04-2024 Basophils (Bld) [#/Vol] 0.1 10*3/uL Normal 0.0-0.2 [facility] Comment on above: Result Comment: PERF ORMED BY: [place] [address] PATHOLOGIST [employer] SPECIALIST ADIEL AGUSTIN M.D. Performed By: #### C MP, MG, CBC #### [address] Basophils/100 WBC (Bld) 0.6 % Normal . [facility] Comment on above: Performed By: #### C MP, MG, CBC #### [address] Eosinophils (Bld) [#/Vol] 0.2 10*3/uL Normal 0.0-0.45 [facility] Comment on above: Performed By: #### C MP, MG, CBC #### [address] Eosinophils/100 WBC (Bld) 1.9 % Normal . [facility] Comment on above: Performed By: #### C MP, MG, CBC #### [address] Erythrocyte distribution width (RBC) [Ratio] 14.6 % Normal 11.9-15.3 [facility] Comment on above: Performed By: #### C MP, MG, CBC #### [address] Hematocrit (Bld) [Volume fraction] 43.5 % Normal 34.0-46.4 [facility] Comment on above: Performed By: #### C MP, MG, CBC #### [address] Hemoglobin (Bld) [Mass/Vol] 14.4 g/dL Normal 11.8-15.4 [facility] Comment on above: Performed By: #### C MP, MG, CBC #### [address] Lymphocytes (Bld) [#/Vol] 1.8 10*3/uL Normal 1.00-4.8 [facility] Comment on above: Performed By: #### C MP, MG, CBC #### [place] [address] [place] Lymphocytes/100 WBC (Bld) 18.0 % Normal . [facility] Comment on above: Performed By: #### C MP, MG, CBC #### [address] MCH (RBC) [Entitic mass] 28.8 pg Normal 24.7-34.3 [facility] Comment on above: Performed By: #### C MP, MG, CBC #### [address] MCV (RBC) [Entitic vol] 87.0 fL Normal 80-100 [facility] Comment on above: Performed By: #### C MP, MG, CBC #### [address] Mean Corpuscular HGB Conc 33.2 g/dL Normal 32.0-35.0 [facility] Comment on above: Performed By: #### C MP, MG, CBC #### [address] Monocytes (Bld) [#/Vol] 0.8 10*3/uL Normal 0.0-0.8 [facility] Comment on above: Performed By: #### C MP, MG, CBC #### [address] Monocytes/100 WBC (Bld) 8.2 % Normal . [facility] Comment on above: Performed By: #### C MP, MG, CBC #### [address] Neutrophils (Bld) [#/Vol] 7.3 10*3/uL Normal 1.8-7.7 [facility] Comment on above: Performed By: #### C MP, MG, CBC #### [address] Neutrophils/100 WBC (Bld) 71.3 % Normal . [facility] Comment on above: Performed By: #### C MP, MG, CBC #### [address] NRBC% 0.1 /100{WBC} Normal 0-0.5 [facility] Comment on above: Performed By: #### C MP, MG, CBC #### [address] Platelet mean volume (Bld) [Entitic vol] 8.8 fL Normal 6.3-10.7 [facility] Comment on above: Performed By: #### C MP, MG, CBC #### [address] Platelets (Bld) [#/Vol] 334 10*3/uL Normal 150-450 [facility] Comment on above: Performed By: #### C MP, MG, CBC #### [address] RBC (Bld) [#/Vol] 5.01 10*6/uL High 3.60-5.00 [facility] Comment on above: Performed By: #### C MP, MG, CBC #### [address] WBC (Bld) [#/Vol] 10.3 10*3/uL Normal 3.8-11.6 [facility] Comment on above: Performed By: #### C MP, MG, CBC #### [address] Comprehensive Metabolic Pane [place] 03-04-2024 Albumin [Mass/Vol] 4.5 g/dL Normal 3.5-5.7 [facility] Comment on above: Performed By: #### C MP, MG, CBC #### [address] Albumin/Globulin [Mass ratio] 1.4 {ratio} Normal [facility] Comment on above: Performed By: #### C MP, MG, CBC #### [address] ALP [Catalytic activity/Vol] 79 U/L Normal 34-104 [facility] Comment on above: Performed By: #### C MP, MG, CBC #### [address] ALT [Catalytic activity/Vol] 19 U/L Normal 7-52 [facility] Comment on above: Performed By: #### C MP, MG, CBC #### [facility] [address] Anion gap [Moles/Vol] 11.4 mmol/L Normal 6.0-15.0 Th e [facility] Comment on above: Performed By: #### C MP, MG, CBC #### [facility] [address] AST [Catalytic activity/Vol] 37 U/L Normal 13-39 [facility] Comment on above: Performed By: #### C MP, MG, CBC #### [facility] [address] [place] [address] [place] Bilirubin [Mass/Vol] 0.5 mg/dL Normal 0.3-1.0 [facility] Comment on above: Performed By: #### C MP, MG, CBC #### [facility] [address] Calcium [Mass/Vol] 9.6 mg/dL Normal 8.6-10.3 [facility] Comment on above: Performed By: #### C MP, MG, CBC #### [facility] [address] [place] [address] [place] Chloride [Moles/Vol] 107 mmol/L Normal 98-107 [facility] Comment on above: Performed By: #### C MP, MG, CBC #### [facility] [address] [place] [address] [place] CO2 [Moles/Vol] 27.4 mmol/L Normal 21.0-31.0 [facility] Comment on above: Performed By: #### C MP, MG, CBC #### [facility] [address] [place] [address] [place] Creatinine [Mass/Vol] 0.91 mg/dL Normal 0.60-1.20 [facility] Comment on above: Performed By: #### C MP, MG, CBC #### [facility] [address] [place] [address] [place] Creatinine Clr Calc Pharmacy 90.12 Normal [facility] Comment on above: Performed By: #### C MP, MG, CBC #### [facility] [address] GFR/1.73 sq M.predicted MDRD (S/P/Bld) [Vol rate/Area] mL/min/{1.73_m2} Normal [facility] Comment on above: Performed By: #### C MP, MG, CBC #### [address] Globulin (S) [Mass/Vol] 3.2 g/dL Normal [facility] Comment on above: Performed By: #### C MP, MG, CBC #### [address] Glucose [Mass/Vol] 100 mg/dL Normal 70-100 [facility] Comment on above: Result Comment: [facility] Glucose Reference Range is dependent on time and content of last meal. Glucose of more than 200 mg/dL in a nonstressed, ambulatory subject supports the diagnosis of Diabetes Mellitus. ADA recommended reference range Performed By: #### C MP, MG, CBC #### [address] Potassium [Moles/Vol] 3.8 mmol/L Normal 3.5-5.1 [facility] Comment on above: Performed By: #### C MP, MG, CBC #### [address] Protein [Mass/Vol] 7.7 g/dL Normal 6.4-8.9 [facility] Comment on above: Performed By: #### C MP, MG, CBC #### [address] Sodium [Moles/Vol] 142 mmol/L Normal 136-145 [facility] Comment on above: Performed By: #### C MP, MG, CBC #### [address] Urea nitrogen [Mass/Vol] 15 mg/dL Normal 7-25 [facility] Comment on above: Performed By: #### C MP, MG, CBC #### [address] MR head/brain wo/w con MR head/brain wo/w con [facility] [place] [address] [place] [address] MRI Report Signed Patient: Michelle Be MR#: [id number] : 1960 Acct:[id number] Age/Sex: 63 / F ADM Date: 03/03/24 Loc: 3T Room: [address] [place] [address] Type: ADM IN Attending Dr: Delta Gan [...] Willi Guadalupe M.D.03/04/2024 2:32 PM Dictation Location: [place] [address] Transcribed By: [facility] 03/04/24 1432 Dictated By: Willi Guadalupe II, MD 03/04/24 1424 Signed By: 03/04/24 1432 Normal [facility] Magnesiumon 03-04-2024 Magnesium [Mass/Vol] 2.0 mg/dL Normal 1.9-2.7 [facility] Comment on above: Result Comment: PERF ORMED BY: [place] [address] PATHOLOGIST [employer] SPECIALIST ADIEL AGUSTIN M.D. Performed By: #### C MP, MG, CBC #### [address] Complete Blood Count Auto Di ffon 03-03-2024 Basophils (Bld) [#/Vol] 0.1 10*3/uL Normal 0.0-0.2 [facility] Comment on above: Order Comment: RIN T O COME TRY,KAH,160 Result Comment: PERF ORMED BY: [place] [address] PATHOLOGIST [employer] SPECIALIST ADIEL AGUSTIN M.D. Performed By: #### C BC, CMP #### [address] Basophils/100 WBC (Bld) 0.6 % Normal . [facility] Comment on above: Order Comment: RIN T O COME TRY,KAH,[id number] Performed By: #### C BC, CMP #### [address] Eosinophils (Bld) [#/Vol] 0.1 10*3/uL Normal 0.0-0.45 [facility] Comment on above: Order Comment: RIN T O COME TRY,KAH,[id number] Performed By: #### C BC, CMP #### [address] Eosinophils/100 WBC (Bld) 1.0 % Normal . [facility] Comment on above: Order Comment: RIN T O COME TRY,KAH,[id number] Performed By: #### C BC, CMP #### [address] Erythrocyte distribution width (RBC) [Ratio] 14.6 % Normal 11.9-15.3 [facility] Comment on above: Order Comment: RIN T O COME TRY,KAH,[id number] Performed By: #### C BC, CMP #### [address] Hematocrit (Bld) [Volume fraction] 42.9 % Normal 34.0-46.4 [facility] Comment on above: Order Comment: RIN T O COME TRY,KAH,[id number] Performed By: #### C BC, CMP #### [address] Hemoglobin (Bld) [Mass/Vol] 14.5 g/dL Normal 11.8-15.4 [facility] Comment on above: Order Comment: RIN T O COME TRY,KAH,[id number] Performed By: #### C BC, CMP #### [address] Lymphocytes (Bld) [#/Vol] 1.7 10*3/uL Normal 1.00-4.8 [facility] Comment on above: Order Comment: RIN T O COME TRY,KAH,[id number] Performed By: #### C BC, CMP #### [address] Lymphocytes/100 WBC (Bld) 15.7 % Normal . [facility] Comment on above: Order Comment: RIN T O COME TRY,KAH,[id number] Performed By: #### C BC, CMP #### [address] MCH (RBC) [Entitic mass] 29.1 pg Normal 24.7-34.3 [facility] Comment on above: Order Comment: RIN T O COME TRY,KAH,[id number] Performed By: #### C BC, CMP #### [address] MCV (RBC) [Entitic vol] 85.9 fL Normal 80-100 [facility] Comment on above: Order Comment: RIN T O COME TRY,KAH,[id number] Performed By: #### C BC, CMP #### [facility] [address] Mean Corpuscular HGB Conc 33.8 g/dL Normal 32.0-35.0 [facility] Comment on above: Order Comment: RIN T O COME TRY,KAH,[id number] Performed By: #### C BC, CMP #### [facility] [address] [place] [address] [place] Monocytes (Bld) [#/Vol] 0.9 10*3/uL High 0.0-0.8 [facility] Comment on above: Order Comment: RIN T O COME TRY,KAH,[id number] Performed By: #### C BC, CMP #### [address] Monocytes/100 WBC (Bld) 8.4 % Normal . [facility] Comment on above: Order Comment: RIN T O COME TRY,KAH,[id number] Performed By: #### C BC, CMP #### [address] Neutrophils (Bld) [#/Vol] 8.0 10*3/uL High 1.8-7.7 [facility] Comment on above: Order Comment: RIN T O COME TRY,KAH,[id number] Performed By: #### C BC, CMP #### [place] [address] [place] Neutrophils/100 WBC (Bld) 74.3 % Normal . [facility] Comment on above: Order Comment: RIN T O COME TRY,KAH,[id number] Performed By: #### C BC, CMP #### [place] [address] [place] NRBC% 0.1 /100{WBC} Normal 0-0.5 [facility] Comment on above: Order Comment: RIN T O COME TRY,KAH,[id number] Performed By: #### C BC, CMP #### [address] Platelet mean volume (Bld) [Entitic vol] 8.9 fL Normal 6.3-10.7 [facility] Comment on above: Order Comment: RIN T O COME TRY,KAH,[id number] Performed By: #### C BC, CMP #### [facility] [address] [place] [address] Platelets (Bld) [#/Vol] 291 10*3/uL Normal 150-450 [facility] Comment on above: Order Comment: RIN T O COME TRY,KAH,[id number] Performed By: #### C BC, CMP #### [address] RBC (Bld) [#/Vol] 4.99 10*6/uL Normal 3.60-5.00 [facility] Comment on above: Order Comment: RIN T O COME TRY,KAH,[id number] Performed By: #### C BC, CMP #### [address] WBC (Bld) [#/Vol] 10.7 10*3/uL Normal 3.8-11.6 [facility] Comment on above: Order Comment: RIN T O COME TRY,KAH,[id number] Performed By: #### C BC, CMP #### [address] Comprehensive Metabolic Pane [place] 03-03-2024 Albumin [Mass/Vol] 4.6 g/dL Normal 3.5-5.7 [facility] Comment on above: Order Comment: RIN T O COME TRY,KAH,[id number] Performed By: #### C BC, CMP #### [address] Albumin/Globulin [Mass ratio] 1.4 {ratio} Normal [facility] Comment on above: Order Comment: RIN T O COME TRY,KAH,[id number] Performed By: #### C BC, CMP #### [address] ALP [Catalytic activity/Vol] 80 U/L Normal 34-104 [facility] Comment on above: Order Comment: RIN T O COME TRY,KAH,[id number] Performed By: #### C BC, CMP #### [place] [id number] [place] ALT [Catalytic activity/Vol] 16 U/L Normal 7-52 [facility] Comment on above: Order Comment: RIN T O COME TRY,KAH,[id number] Performed By: #### C BC, CMP #### [facility] [address] Anion gap [Moles/Vol] 13.6 mmol/L Normal 6.0-15.0 Th e [facility] Comment on above: Order Comment: RIN T O COME TRY,KAH,[id number] Performed By: #### C BC, CMP #### [facility] [address] [place] [address] AST [Catalytic activity/Vol] 35 U/L Normal 13-39 [facility] Comment on above: Order Comment: RIN T O COME TRY,KAH,[id number] Performed By: #### C BC, CMP #### [facility] [address] [place] [address] Bilirubin [Mass/Vol] 0.3 mg/dL Normal 0.3-1.0 [facility] Comment on above: Order Comment: RIN T O COME TRY,KAH,[id number] Performed By: #### C BC, CMP #### [facility] [address] [place] [address] Calcium [Mass/Vol] 9.3 mg/dL Normal 8.6-10.3 [facility] Comment on above: Order Comment: RIN T O COME TRY,KAH,1607 Performed By: #### C BC, CMP #### [facility] [address] [place] [address] [place] Chloride [Moles/Vol] 109 mmol/L High 98-107 [facility] Comment on above: Order Comment: RIN T O COME TRY,KAH,1607 Performed By: #### C BC, CMP #### [facility] [address] [place] [address] [place] CO2 [Moles/Vol] 22.4 mmol/L Normal 21.0-31.0 [facility] Comment on above: Order Comment: RIN T O COME TRY,KAH,1607 Performed By: #### C BC, CMP #### [facility] [address] Creatinine [Mass/Vol] 0.93 mg/dL Normal 0.60-1.20 [facility] Comment on above: Order Comment: RIN T O COME TRY,KAH,1606 Performed By: #### C BC, CMP #### [facility] [address] Creatinine Clr Calc Pharmacy 87.94 Normal [facility] Comment on above: Order Comment: RIN T O COME TRY,KAH,1606 Result Comment: PERF ORMED BY: [place] [address] PATHOLOGIST W[employer] RIGHTS SPECIALIST ADIEL AGUSTIN M.D. Performed By: #### C BC, CMP #### [facility] [address] GFR/1.73 sq M.predicted MDRD (S/P/Bld) [Vol rate/Area] mL/min/{1.73_m2} Normal [facility] Comment on above: Order Comment: RIN T O COME TRY,,1606 Performed By: #### C BC, CMP #### [facility] [address] Globulin (S) [Mass/Vol] 3.2 g/dL Normal [facility] Comment on above: Order Comment: REY T O COME TRY,,1606 Performed By: #### C BC, CMP #### [address] Glucose [Mass/Vol] 105 mg/dL High 70-100 [facility] Comment on above: Order Comment: RIN T O COME TRY,KAH,1606 Result Comment: [place] om Glucose Reference Range is dependent on time and content of last meal. Glucose of more than 200 mg/dL in a nonstressed, ambulatory subject supports the diagnosis of Diabetes Mellitus. ADA recommended reference range Performed By: #### C BC, CMP #### [facility] [address] Potassium [Moles/Vol] 4.0 mmol/L Normal 3.5-5.1 [facility] Comment on above: Order Comment: REY PORRAS,KAH,160 Performed By: #### C BC, CMP #### [address] Protein [Mass/Vol] 7.8 g/dL Normal 6.4-8.9 [facility] Comment on above: Order Comment: REY PORRAS,KAH,160 Performed By: #### C BC, CMP #### [address] Sodium [Moles/Vol] 141 mmol/L Normal 136-145 [facility] Comment on above: Order Comment: REY PORRAS,KAH,160 Performed By: #### C BC, CMP #### [address] Urea nitrogen [Mass/Vol] 15 mg/dL Normal 7-25 [facility] Comment on above: Order Comment: REY PORRAS,KAH,160 Performed By: #### C BC, CMP #### [address] IGP,APTIMA HPV,AGE GDLNon AGE GDLN ACOG TESTING Note . [facility] Comment on above: TESTS RESULT FLAG UN ITS REF RANGE LAB Clinician Provided Cytology Information Source.............Cervix;Endocervix No. of containers..01 ThinPrep Vial Age Algo ACOG Tona... 30-65 01 FLAG LEGEND: L-Low Normal,H-High Normal,LL-Alert Low,HH-Alert High <-Panic Low,>-Panic High,A-Abnormal,AA-Critical Abnormal Performed at: 01 =[address] [place] [address] Farzana Hennessy MD, HPV APTIMA Negative Negative [facility] Comment on above: This nucleic acid am plification test detects fourteen high- risk HPV types (16,18,31,33,35,39,45,51,52,56,58,59,66,68) without differentiation. Performed at: =[address], [place] [id number] Rubber Goods Repairer: Farzana Hennessy MD, Phone: [phone] Performed at: [facility] [id number] [place] [id number] [employer] Goods Repairer: Scott Sandoval MD, Phone: [phone] IGP, APTIMA HPV, RFX 16/18,45 Note . [facility] Comment on above: TESTS RESULT FLAG UN ITS REF RANGE LAB DIAGNOSIS: 02 NEGATIVE FOR INTRAEPITHELIAL LESION OR MALIGNANCY. Specimen adequacy: 02 Satisfactory for evaluation. Endocervical and/or squamous metaplastic cells (endocervical component) are present. Performed by: 02 Adelaida Bustamante, Leaf Sticker (ASCP) . 02 Note: Note 03 The [...] High,A-Abnormal,AA-Critical Abnormal Performed at: 02 [facility] [address] [place] [address] Scott Sandoval MD, 03 WB [facility] [address] [address] Farzana Hennessy MD, BROOM-ALONE CERVIX ENDOCERVIX [facility] Urinalysis macro (dipstick) panel (U)on 01-28-2024 Bilirubin, UA Negative Negative - 4(70) +++ mg/dL [facility] Blood, UA Negative Negative - 50 Kranthi/mcL [facility] Clarity, UA Clear [facility] Color, UA Dark Tania [facility] Glucose, UA Negative Negative - 1999(110) ++++ mg/dL [facility] Interpretation and review of laboratory results Abnormal [facility] Ketones, UA Negative Negative - 160(16) ++++ mg/dL [facility] Leukocytes, UA Trace Negative - 500+++ Radha/mcL [facility] Nitrite, UA Negative Negative - Positive [facility] pH, UA 5.5 5 - 9 [facility] Protein, UA Negative Negative - 1999(20) ++++ mg/dL [facility] Spec Grav, UA 1.025 1 - 1.03 [facility] Urobilinogen, UA 0.2 0.2 - 12 mg/dL [facility] CULT,URINEon 01-23-2024 Interpretation and review of laboratory results [facility] Spec[facility] Description .CLEAN CATCH URINE [facility] Culture ESCHERICHIA COLI >100,000 CFU/ML Abnormal [facility] STREPTOCOCCI, BETA HEMOLYTIC GROUP B 10 to 50,000 CFU/ML Abnormal [facility] Report Status FINAL 01/23/2024 [facility]PT CULT,URINE SUSCEPTIBILITY [facility] Organism ESCHERICHIA COLI [facility] Method CROW [facility] Ampicillin 16 INTERMEDIATE Intermediate [facility] Cefazolin <=4 SUSCEPTIBLE Susceptible [facility] Cefazolin sensitivit y results can be used to predict the effectiveness of oral Susceptible [facility] cephalosporins (eg. Cephalexin) in uncomplicated Urinary Tract Infections due Susceptible [facility] CULT,URINE to E. coli, K. pneumoniae, and P. mirabilis Susceptible [facility] Ceftriaxone <=0.25 SUSCEPTIBLE Susceptible [facility] Negative Susceptible [facility] Gentamicin <=1 SUSCEPTIBLE Susceptible [facility] Levofloxacin <=0.12 SUSCEPTIBLE Susceptible [facility] Nitrofurantoin <=16 SUSCEPTIBLE Susceptible [facility] Piperacillin/Tazobac ta m <=4 SUSCEPTIBLE Susceptible [facility] Tobramycin <=1 SUSCEPTIBLE Susceptible [facility] Trimethoprim/Sulfa <=20 SUSCEPTIBLE Susceptible [facility] Original Ordering Provider: RICHA DAVENPORT [facility] ALL BASIC METABOLIC PANELon 01-05-2024 Anion gap [Moles/Vol] 11.1 mmol/L [facility] Calcium [Mass/Vol] 9.2 mg/dL 8.5 - 10. 1 mg/dL [facility] Chloride [Moles/Vol] 105 mmol/L 98 - 10 7 mmol/L [facility] CO2 [Moles/Vol] 28.0 mmol/L 21.0 - 32.0 mmol/L [facility] Creatinine [Mass/Vol] 1.08 mg/dL High 0.55 - 1.02 mg/dL [facility] GFR/1.73 sq M.predicted CKD-EPI (S/P/Bld) [Vol rate/Area] >60 60 - PINF [facility] Glucose [Mass/Vol] 92 mg/dL 74 - 106 mg/dL [facility] Interpretation and review of laboratory results Abnormal [facility] Potassium [Moles/Vol] 4.1 mmol/L 3.5 - 5.1 mmol/L [facility] Sodium [Moles/Vol] 140 mmol/L 136 - 145 mmol/L [facility] TBH EGFR-NON AF KITTITIAN 51 Low 60 - PINF [facility] Urea nitrogen [Mass/Vol] 17.0 mg/dL 7.0 - 18.0 mg/dL [facility] Urea nitrogen/Creatinine [Mass ratio] 15.7 mg/mg [facility] Amphetamine Screen Ql (U)Ord ered By: Jace Graham on 03-23-2023 Amphetamines Ql (U) Negative Negative [facility] Barbiturates [Presence] in U rine by Screen methodOrdered By: Jace Graham on 03-23-2023 Barbiturates Screen Ql (U) Negative Negative [facility] Benzodiazepines Screen Ql (U )Ordered By: Jace Graham on 03-23-2023 Benzodiazepines Ql (U) Negative Negative [facility] Benzoylecgonine [Presence] i n Urine by Screen methodOrdered By: Jace Graham on 03-23-2023 Benzoylecgonine Screen Ql (U) Negative Negative [facility] Cannabinoids [Presence] in U rine by Screen methodOrdered By: Jace Graham on 03-23-2023 Cannabinoids Screen Ql (U) Negative Negative [facility] Comment on above: These are unconfirme d results and should not be used for legal purposes. Drug Cut-Off Concentration: AMPH 1000 ng/mL ELKIN 200 ng/mL ATIYA 200 ng/mL COCM 300 ng/mL OP 300 ng/mL PCP 25 ng/mL THC 20 ng/mL Opiates [Presence] in Urine by Screen methodOrdered By: Jace Graham on 03-23-2023 Opiates Screen Ql (U) Negative Negative [facility] Phencyclidine Screen Ql (U)O rdered By: Jace Graham on 03-23-2023 Phencyclidine Ql (U) Negative Negative [facility] Cholesterol [Mass/volume] in Serum or PlasmaOrdered By: Eduardo Monk on 11-18-2022 Cholesterol [Mass/Vol] 159 mg/dL 140-200 [facility] Comment on above: Chol less than 200 m g/dl low riskChol 201-239 mg/dl borderline riskChol 240 mg/dl and greater high risk Cholesterol in LDL Calc [Mas s/Vol]Ordered By: Eduardo Monk on 11-18-2022 Cholesterol in LDL [Mass/Vol] 84 mg/dL 0-100 [facility] Comment on above: LDL ATP III CLASSIFI CATIONLDL less than 100 mg/dL OptimalLDL 100-129 mg/dL Near or above optimalLDL 130-159 mg/dL Borderline highLDL 160-189 mg/dL HighLDL greater than 189 mg/dL Very high Cholesterol in VLDL Calc [Ma ss/Vol]Ordered By: Eduardo Monk on 11-18-2022 Cholesterol in VLDL [Mass/Vol] 28 mg/dL [facility] Serum or plasma high density lipoprotein (HDL) cholesterol measurementOrdered By: Eduardo Monk on 11-18-2022 Cholesterol in HDL [Mass/Vol] 46 mg/dL 23-92 [facility] Comment on above: HDL CHOL ATP-III CLA SSIFICATION Cardiovascular RiskHDL > or equal to 60 mg/dL LOWHDL < 40 mg/dL HIGH Serum or plasma total choles terol/high density lipoprotein (HDL) cholesterol mass ratOrdered By: Eduardo Monk on 11-18-2022 Cholesterol.total/Chol esterol in HDL [Mass ratio] 3.5 {ratio} <5.0 [facility] Thyrotropin [Units/volume] i n Serum or PlasmaOrdered By: Eduardo Monk on 11-18-2022 TSH Qn 2.13 m[IU]/L 0.45-5.33 [facility] Triglyceride [Mass/volume] i n Serum or PlasmaOrdered By: Eduardo Monk on 11-18-2022 Triglyceride [Mass/Vol] 144 mg/dL 0-149 [facility] Comment on above: TRIG ATP III CLASSIF ICATIONTRIG less than 150 mg/dL NormalTRIG 150-199 mg/dL Borderline highTRIG 200-500 mg/dL High TRIG greater than 500 mg/dL Very highStandard traceable to the Center for Disease Conrtrol and Prevention (CDC) test method. Vitamin D+Metabolites [Mass/ volume] in Serum or PlasmaOrdered By: Eduardo Monk on 11-18-2022 Vitamin D+Metabolites [Mass/Vol] 50.4 ng/mL 30-100 [facility] Comment on above: VITAMIN D STATUS 25( OH)VITAMIN D RANGE (ng/mL) Deficient <20 Insufficient 20 to <30Sufficient 30 to 100Reference: Bin MF,Lakshmi NC, Cristian SMART, et al. Evaluation,treatment, and prevention of vitamin D deficiency; an Endocrine Society clinical practice guideline. JCEM. 2010; 96(7):1911-30. CBC AUTO DIFFon 07-25-2022 BASO # 0.1 103/ul Normal 0.0-0.1 [facility] Comment on above: Performed By: #### A 1C #### [facility] [address] [place] [address] Dr. Bebeto Alvarado Basophils/100 WBC (Bld) 0.6 % Normal 0.2-2.0 [facility] Comment on above: Performed By: #### A 1C #### [facility] [address] [place] [address] Dr. Bebeto Alvarado EO # 0.2 103/ul Normal 0.0-0.7 [facility] Comment on above: Performed By: #### A 1C #### [facility] [address] [place] [address] Dr. Bebeto Alvarado Eosinophils/100 WBC (Bld) 2.3 % Normal 0.9-7.[address] [facility] Comment on above: Performed By: #### A 1C #### [facility] [address] [place] [address] Dr. Bebeto Alvarado Erythrocyte distribution width (RBC) [Ratio] 13.8 % Normal 11.0-15.0 [facility] Comment on above: Performed By: #### A 1C #### [facility] [address] [place] [address] Dr. Bebeto Alvarado Hematocrit (Bld) [Volume fraction] 41.2 % Normal 36.0-48.0 [facility] Comment on above: Performed By: #### A 1C #### [facility] [address] [place] [address] Dr. Bebeto Alvarado Hemoglobin (Bld) [Mass/Vol] 13.2 g/dL Normal 12.0-16.0 [facility] Comment on above: Performed By: #### A 1C #### [facility] [address] [place] [address] Dr. Bebeto Alvarado IG # 0.03 10e3/ul Normal 0.00-0.03 [facility] Comment on above: Performed By: #### A 1C #### [facility] [address] [place] [address] Dr. Bebeto Alvarado IG % 0.4 % Normal 0.0-0.5 [facility] Comment on above: Performed By: #### A 1C #### [facility] [address] [place] [address] Dr. Bebeto Alvarado LYMPH # 2.1 103/ul Normal 1.2-3.8 [facility] Comment on above: Performed By: #### A 1C #### [facility] [address] [place] [address] Dr. Bebeto Alvarado Lymphocytes/100 WBC (Bld) 25.9 % Normal 20.5-60.0 [facility] Comment on above: Performed By: #### A 1C #### [facility] [address] [place] [address] Dr. Bebeto Alvarado MANUAL DIFF REQ NO Normal [facility] Comment on above: Performed By: #### A 1C #### [facility] [address] [place] [address] Dr. Bebeto Alvarado MCH (RBC) [Entitic mass] 28.0 pg Normal 26.7-34.0 [facility] Comment on above: Performed By: #### A 1C #### [facility] [address] [place] [address] Dr. Bebeto Alvarado MCHC (RBC) [Mass/Vol] 32.0 g/dL Normal 29.9-35.[address] [facility] Comment on above: Performed By: #### A 1C #### [facility] [address] [place] [address] Dr. Bebeto Alvarado MCV (RBC) [Entitic vol] 87.5 fL Normal 81.0-99.0 [facility] Comment on above: Performed By: #### A 1C #### [facility] [address] [place] [address] Dr. Bebeto Alvarado MONO # 0.5 103/ul Normal 0.3-0.[address] [facility] Comment on above: Performed By: #### A 1C #### [facility] [address] [place] [address] Dr. Bebeto Alvarado Monocytes/100 WBC (Bld) 6.6 % Normal 1.7-12.[address] [facility] Comment on above: Performed By: #### A 1C #### [facility] [address] [place] [address] Dr. Bebeto Alvarado NEUT # 5.1 103/ul Normal 1.4-6.5 [facility] Comment on above: Performed By: #### A 1C #### [facility] [address] [place] [address] Dr. Bebeto Alvarado Neutrophils/100 WBC (Bld) 64.2 % Normal 43.0-75.[address] [facility] Comment on above: Performed By: #### A 1C #### [facility] [address] [place] [address] Dr. Bebeto Alvarado Platelet mean volume (Bld) [Entitic vol] 11.2 fL Normal 9.5-13.[address] [facility] Comment on above: Performed By: #### A 1C #### [facility] [address] [place] [address] Dr. Bebeto Alvarado PLT 252 103/ul Normal 150-[address] [facility] Comment on above: Performed By: #### A 1C #### [facility] [address] [place] [address] Dr. Bebeto Alvarado RBC 4.71 106/ul Normal 4.20-5.40 [facility] Comment on above: Performed By: #### A 1C #### [facility] [address] [place] [address] Dr. Bebeto Alvarado WBC 8.0 103/ul Normal 4.0-11.0 [facility] Comment on above: Performed By: #### A 1C #### [facility] [address] [address] [address] Bebeto Alvarado GLYCOHEMOGLOBIN A1Con 2022 ADA RECOMMENDATION SEE BELOW Normal [facility] Comment on above: Result Comment: ADA RECOMMENDED LIMIT 4.0 - 6.0 ADA THERAPEUTIC TARGET < 7.0 ACTION SUGGESTED > 7.0 Performed By: #### A 1C #### [facility] [address] [place] [address] Dr. Bebeto Alvarado Glucose [Mass/Vol] 114 mg/dL Normal [facility] Comment on above: Performed By: #### A 1C #### [facility] [address] [place] [address] Dr. Bebeto Alvarado HbA1c (Bld) [Mass fraction] 5.6 % Normal 4.5-6.2 [facility] Comment on above: Performed By: #### A 1C #### [facility] [address] [place] [address] Dr. Bebeto Alvarado IRONon 07-25-2022 Iron [Mass/Vol] 60.0 ug/dL Normal 50.0-170.0 [facility] Comment on above: Performed By: #### V ITB12, IRON #### [facility] [address] [place] [address] Dr. Bebeto Alvarado LIPID PROFILEon 07-25-2022 CHOL-HDL RATIO NORM SEE BELOW Normal [facility] Comment on above: Result Comment: 3.3 - 4.4 LOW RISK 4.4 - 7.1 AVERAGE RISK 7.1 - 11.0 MODERATE RISK >11.0 HIGH RISK Performed By: #### C MP, LIPID #### [facility] [address] [place] [address] Dr. Bebeto Alvarado Cholesterol [Mass/Vol] 144 mg/dL Normal <=200 [facility] Comment on above: Performed By: #### C MP, LIPID #### [facility] [address] [address] [address] Bebeto Alvarado Cholesterol in HDL [Mass/Vol] 39 mg/dL Critically low 40-60 [facility] Comment on above: Performed By: #### C MP, LIPID #### [facility] [address] [address] [address] Bebeto Alvarado Cholesterol in LDL [Mass/Vol] 74.6 mg/dL Normal [facility] Comment on above: Performed By: #### C MP, LIPID #### [facility] [address] [address] [address] Bebeto Alvarado Cholesterol.total/Chol esterol in HDL [Mass ratio] 3.7 {ratio} Normal [facility] Comment on above: Performed By: #### C MP, LIPID #### [facility] [address] [address] [address] Bebeto Alvarado HDL NORMAL > or = 60 mg/dl - LO W CARDIOVASCULAR RISK <40 mg/dl - HIGH CARDIOVASCULAR RISK Normal [facility] Comment on above: Performed By: #### C MP, LIPID #### [facility] [address] [address] [address] Bebeto Alvarado LDL CALC NORMAL SEE BELOW Normal [facility] Comment on above: Result Comment: <100 mg/dl OPTIMAL 100 - 129 mg/dl NEAR OR ABOVE OPTIMAL 130 - 159 mg/dl BORDERLINE HIGH 160 - 189 mg/dl HIGH >190 mg/dl VERY HIGH Performed By: #### C MP, LIPID #### [facility] [address] [address] [address] Bebeto Alvarado Triglyceride [Mass/Vol] 152 mg/dL Critically high <=150 [facility] Comment on above: Performed By: #### C MP, LIPID #### [facility] [address] [address] [address] Bebeto Alvarado VLDL CALC 30.4 mg/dL Normal [facility] Comment on above: Performed By: #### C MP, LIPID #### [facility] [address] [place] [address] Dr. Bebeto Alvarado PROF 14(COMP METB)on 023 Albumin [Mass/Vol] 3.7 g/dL Normal 3.4-5.0 [facility] Comment on above: Performed By: #### C MP, LIPID #### [facility] [address] [place] [address] Dr. Bebeto Alvarado Albumin/Globulin [Mass ratio] 0.9 {ratio} Normal [facility] Comment on above: Performed By: #### C MP, LIPID #### [facility] [address] [place] [address] Dr. Bebeto Alvarado ALP [Catalytic activity/Vol] 90 U/L Normal 46-116 [facility] Comment on above: Performed By: #### C MP, LIPID #### [facility] [address] [place] [address] Dr. Bebeto Alvarado ALT [Catalytic activity/Vol] 38 U/L Normal 14-59 [facility] Comment on above: Performed By: #### C MP, LIPID #### [facility] [address] [place] [address] Dr. Bebeto Alvarado Anion gap [Moles/Vol] 12.1 mmol/L Normal [facility] Comment on above: Performed By: #### C MP, LIPID #### [facility] [address] [place] [address] Dr. Bebeto Alvarado AST [Catalytic activity/Vol] 26 U/L Normal 15-37 [facility] Comment on above: Performed By: #### C MP, LIPID #### [facility] [address] [place] [address] Dr. Bebeto Alvarado Bilirubin [Mass/Vol] 0.3 mg/dL Normal 0.2-1.0 [facility] Comment on above: Performed By: #### C MP, LIPID #### [facility] [address] [place] [address] Dr. Bebeto Alvarado Calcium [Mass/Vol] 9.3 mg/dL Normal 8.5-10.1 [facility] Comment on above: Performed By: #### C MP, LIPID #### [facility] [address] [address] [address] Bebeto Alvarado Chloride [Moles/Vol] 107 mmol/L Normal 98-107 [facility] Comment on above: Performed By: #### C MP, LIPID #### [facility] [address] [address] [address] Bebeto Alvarado CO2 [Moles/Vol] 27.9 mmol/L Normal 21.0-32.0 [facility] Comment on above: Performed By: #### C MP, LIPID #### [facility] [address] [address] [address] Bebeto Alvarado Creatinine [Mass/Vol] 0.95 mg/dL Normal 0.55-1.02 [facility] Comment on above: Performed By: #### C MP, LIPID #### [facility] [address] [place] [address] Dr. Bebeto Alvarado EGFR-AF KITTITIAN >60 Normal >=60 [facility] Comment on above: Performed By: #### C MP, LIPID #### [facility] [address] [place] [address] Dr. Bebeto Alvarado EGFR-NON AF KITTITIAN 60 mL/min/1.73m2 Normal >=60 [facility] Comment on above: Performed By: #### C MP, LIPID #### [facility] [address] [place] [address] Dr. Bebeto Alvarado Globulin (S) [Mass/Vol] 3.9 g/dL Normal [facility] Comment on above: Performed By: #### C MP, LIPID #### [facility] [address] [address] [address] Bebeto Alvarado Glucose [Mass/Vol] 108 mg/dL Critically high 74-106 [facility] Comment on above: Performed By: #### C MP, LIPID #### [facility] [address] [place] [address] Dr. Bebeto Alvarado Potassium [Moles/Vol] 4.0 mmol/L Normal 3.5-5.1 [facility] Comment on above: Performed By: #### C MP, LIPID #### [facility] [address] [place] [address] Dr. Bebeto Alvarado Protein [Mass/Vol] 7.6 g/dL Normal 6.4-8.2 [facility] Comment on above: Performed By: #### C MP, LIPID #### [facility] [address] [place] [address] Dr. Bebeto Alvarado Sodium [Moles/Vol] 143 mmol/L Normal 136-145 [facility] Comment on above: Performed By: #### C MP, LIPID #### [facility] [address] [place] [address] Dr. Bebeto Alvarado Urea nitrogen [Mass/Vol] 15.0 mg/dL Normal 7.0-18.0 [facility] Comment on above: Performed By: #### C MP, LIPID #### [facility] [address] [place] [address] Dr. Bebeto Alvarado Urea nitrogen/Creatinine [Mass ratio] 15.8 mg/mg Normal [facility] Comment on above: Performed By: #### C MP, LIPID #### [facility] [address] [place] [address] Dr. Bebeto Alvarado UA RANDOM W/MICROSCOPICon BACTERIA NONE SEEN Normal NONE SEEN [facility] Comment on above: Performed By: #### A 1C #### [facility] [address] [place] [address] Dr. Bebeto Alvarado Bilirubin Ql (U) Negative Normal NEGATIVE [facility] Comment on above: Performed By: #### A 1C #### [facility] [address] [place] [address] Dr. Bebeto Alvarado CAST NONE SEEN Normal NONE SEEN [facility] Comment on above: Performed By: #### A 1C #### [facility] [address] [place] [address] Dr. Bebeto Alvarado Clarity (U) CLEAR Normal CLEAR [facility] Comment on above: Performed By: #### A 1C #### [facility] [address] [place] [address] Dr. Bebeto Alvarado Color (U) YELLOW Normal YELLOW [facility] Comment on above: Performed By: #### A 1C #### [facility] [address] [address] [address] Bebeto Alvarado Crystals LM Nom (Urine sed) NONE SEEN Normal NONE SEEN [facility] Comment on above: Performed By: #### A 1C #### [facility] [address] [address] [address] Bebeto Alvarado Epithelial cells LM Ql (Urine sed) NONE SEEN Normal NONE SEEN /RARE [facility] Comment on above: Performed By: #### A 1C #### [facility] [address] [address] [address] Bebeto Alvarado Glucose Ql (U) Negative Normal NEGATIVE [facility] Comment on above: Performed By: #### A 1C #### [facility] [address] [place] [address] Dr. Bebeto Alvarado Hemoglobin Ql (U) Negative Normal NEGATIVE [facility] Comment on above: Performed By: #### A 1C #### [facility] [address] [place] [address] Dr. Bebeto Alvarado Ketones Ql (U) Negative Normal NEGATIVE [facility] Comment on above: Performed By: #### A 1C #### [facility] [address] [place] [address] Dr. Bebeto Alvarado LEUKOCYTES Negative Normal NEGATIVE [facility] Comment on above: Performed By: #### A 1C #### [facility] [address] [place] [address] Dr. Bebeto Alvarado MUCOUS NONE SEEN Normal NONE SEEN [facility] Comment on above: Performed By: #### A 1C #### [facility] [address] [place] [address] Dr. Bebeto Alvarado Nitrite Ql (U) Negative Normal NEGATIVE [facility] Comment on above: Performed By: #### A 1C #### [facility] [address] [place] [address] Dr. Bebeto Alvarado pH (U) 5.5 [pH] Normal 5-[address] [facility] Comment on above: Performed By: #### A 1C #### [facility] [address] [place] [address] Dr. Bebeto Alvarado RBC NONE SEEN Abnormal 0-2 [facility] Comment on above: Performed By: #### A 1C #### [facility] [address] [place] [address] Dr. Bebeto Alvarado SPEC GRAVITY 1.030 Abnormal 1.005-<=1.02 5 [facility] Comment on above: Performed By: #### A 1C #### [facility] [address] [place] [address] Dr. Bebeto Alvarado UA PROTEIN Negative Normal NEGATIVE/ TRACE [facility] Comment on above: Performed By: #### A 1C #### [facility] [address] [place] [address] Dr. Bebeto Alvarado Urobilinogen Qn (U) 0.2 {Katerin'U}/dL Normal 0.2 - 1. 0 [facility] Comment on above: Performed By: #### A 1C #### [facility] [address] [place] [address] Dr. Bebeto Alvarado WBC NONE SEEN Normal NONE SEEN [facility] Comment on above: Performed By: #### A 1C #### [facility] [address] [place] [address] Dr. Bebeto Alvarado VITAMIN B12on 07-25-2022 Cobalamin (Vitamin B12) [Mass/Vol] 1684.0 pg/mL Critically high 193.0-986.0 [facility] Comment on above: Performed By: #### V ITB12, IRON #### [facility] [address] [place] [address] Dr. Bebeto Alvarado PROF CHEM 8 (BAS METB)on Anion gap [Moles/Vol] 12.2 mmol/L Normal [facility] Comment on above: Performed By: #### B MP #### [facility] [address] [place] [address] Dr. Bebeto Alvarado Calcium [Mass/Vol] 8.9 mg/dL Normal 8.5-10.1 [facility] Comment on above: Performed By: #### B MP #### [facility] [address] [address] [address] Bebeto Alvarado Chloride [Moles/Vol] 105 mmol/L Normal 98-[address] [facility] Comment on above: Performed By: #### B MP #### [facility] [address] [address] [address] Bebeto Alvarado CO2 [Moles/Vol] 29.6 mmol/L Normal 21.0-32.0 [facility] Comment on above: Performed By: #### B MP #### [facility] [address] [address] [address] Bebeto Alvarado Creatinine [Mass/Vol] 0.95 mg/dL Normal 0.55-1.[address] [facility] Comment on above: Performed By: #### B MP #### [facility] [address] [place] [address] Dr. Bebeto Alvarado EGFR-AF KITTITIAN >60 Normal >=60 [facility] Comment on above: Performed By: #### B MP #### [facility] [address] [address] [address] Bebeto Alvarado EGFR-NON AF KITTITIAN 60 mL/min/1.73m2 Normal >=[address] [facility] Comment on above: Performed By: #### B MP #### [facility] [address] [address] [address] Bebeto Alvarado Glucose [Mass/Vol] 101 mg/dL Normal 74-106 [facility] Comment on above: Performed By: #### B MP #### [facility] [address] [address] [address] Bebeto Alvarado Potassium [Moles/Vol] 3.8 mmol/L Normal 3.5-5.[address] [facility] Comment on above: Performed By: #### B MP #### [facility] [address] [place] [address] Dr. Bebeto Alvarado Sodium [Moles/Vol] 143 mmol/L Normal 136-145 [facility] Comment on above: Performed By: #### B MP #### [facility] [address] [address] [address] Bebeto Alvarado Urea nitrogen [Mass/Vol] 16.0 mg/dL Normal 7.0-18.0 [facility] Comment on above: Performed By: #### B MP #### [facility] [address] [place] [address] Dr. Bebeto Alvarado Urea nitrogen/Creatinine [Mass ratio] 16.8 mg/mg Normal [facility] Comment on above: Performed By: #### B MP #### [facility] [address] [place] [address] Dr. Bebeto Alvarado CBC AUTO DIFFon 11-21-2021 BASO # 0.1 103/ul Normal 0.0-0.1 [facility] Comment on above: Performed By: #### A 1C #### [facility] [address] [place] [address] Dr. Bebeto Alvarado Basophils/100 WBC (Bld) 1.0 % Normal 0.2-2.0 [facility] Comment on above: Performed By: #### A 1C #### [facility] [address] [place] [address] Dr. Bebeto Alvarado EO # 0.2 103/ul Normal 0.0-0.7 [facility] Comment on above: Performed By: #### A 1C #### [facility] [address] [place] [address] Dr. Bebeto Alvarado Eosinophils/100 WBC (Bld) 3.3 % Normal 0.9-7.0 [facility] Comment on above: Performed By: #### A 1C #### [facility] [address] [place] [address] Dr. Bebeto Alvarado Erythrocyte distribution width (RBC) [Ratio] 13.8 % Normal 11.0-15.0 [facility] Comment on above: Performed By: #### A 1C #### [facility] [address] [place] [address] Dr. Bebeto Alvarado Hematocrit (Bld) [Volume fraction] 38.8 % Normal 36.0-48.0 [facility] Comment on above: Performed By: #### A 1C #### [facility] [address] [place] [address] Dr. Bebeto Alvarado Hemoglobin (Bld) [Mass/Vol] 12.5 g/dL Normal 12.0-16.0 [facility] Comment on above: Performed By: #### A 1C #### [facility] [address] [place] [address] Dr. Bebeto Alvarado IG # 0.02 10e3/ul Normal 0.00-0.03 [facility] Comment on above: Performed By: #### A 1C #### [facility] [address] [place] [address] Dr. Bebeto Alvarado IG % 0.3 % Normal 0.0-0.5 [facility] Comment on above: Performed By: #### A 1C #### [facility] [address] [place] [address] Dr. Bebeto Alvarado LYMPH # 1.9 103/ul Normal 1.2-3.8 [facility] Comment on above: Performed By: #### A 1C #### [facility] [address] [place] [address] Dr. Bebeto Alvarado Lymphocytes/100 WBC (Bld) 29.6 % Normal 20.5-60.0 [facility] Comment on above: Performed By: #### A 1C #### [facility] [address] [place] [address] Dr. Bebeto Alvarado MANUAL DIFF REQ NO Normal [facility] Comment on above: Performed By: #### A 1C #### [facility] [address] [place] [address] Dr. Bebeto Alvarado MCH (RBC) [Entitic mass] 28.0 pg Normal 26.7-34.0 [facility] Comment on above: Performed By: #### A 1C #### [facility] [address] [place] [address] Dr. Bebeto Alvarado MCHC (RBC) [Mass/Vol] 32.2 g/dL Normal 29.9-35.2 [facility] Comment on above: Performed By: #### A 1C #### [facility] [address] [place] [address] Dr. Bebeto Alvarado MCV (RBC) [Entitic vol] 86.8 fL Normal 81.0-99.0 [facility] Comment on above: Performed By: #### A 1C #### [facility] [address] [place] [address] Dr. Bebeto Alvarado MONO # 0.4 103/ul Normal 0.3-0.8 [facility] Comment on above: Performed By: #### A 1C #### [facility] [address] [place] [address] Dr. Bebeto Alvarado Monocytes/100 WBC (Bld) 5.7 % Normal 1.7-12.0 [facility] Comment on above: Performed By: #### A 1C #### [facility] [address] [place] [address] Dr. Bebeto Alvarado NEUT # 3.8 103/ul Normal 1.4-6.5 [facility] Comment on above: Performed By: #### A 1C #### [facility] [address] [place] [address] Dr. Bebeto Alvarado Neutrophils/100 WBC (Bld) 60.1 % Normal 43.0-75.0 [facility] Comment on above: Performed By: #### A 1C #### [facility] [address] [place] [address] Dr. Bebeto Alvarado Platelet mean volume (Bld) [Entitic vol] 11.0 fL Normal 9.5-13.5 [facility] Comment on above: Performed By: #### A 1C #### [facility] [address] [place] [address] Dr. Bebeto Alvarado PLT 264 103/ul Normal 150-[address] [facility] Comment on above: Performed By: #### A 1C #### [facility] [address] [place] [address] Dr. Bebeto Alvarado RBC 4.47 106/ul Normal 4.20-5.[address] [facility] Comment on above: Performed By: #### A 1C #### [facility] [address] [place] [address] Dr. Bebeto Alvarado WBC 6.3 103/ul Normal 4.0-11.[address] [facility] Comment on above: Performed By: #### A 1C #### [facility] [address] [place] [address] Dr. Bebeto Alvarado GLYCOHEMOGLOBIN A1Con 2021 ADA RECOMMENDATION SEE BELOW Normal [facility] Comment on above: Result Comment: ADA RECOMMENDED LIMIT 4.0 - 6.0 ADA THERAPEUTIC TARGET < 7.0 ACTION SUGGESTED > 7.0 Performed By: #### A 1C #### [facility] [address] [address] [address] Bebeto Alvarado Glucose [Mass/Vol] 105 mg/dL Normal [facility] Comment on above: Performed By: #### A 1C #### [facility] [address] [place] [address] Dr. Bebeto Alvarado HbA1c (Bld) [Mass fraction] 5.3 % Normal 4.5-6.2 [facility] Comment on above: Performed By: #### A 1C #### [facility] [address] [place] [address] Dr. Bebeto Alvarado IRONon 11-21-2021 Iron [Mass/Vol] 59.0 ug/dL Normal 50.0-170.0 [facility] Comment on above: Performed By: #### A 1C #### [facility] [address] [place] [address] Dr. Bebeto Alvarado LIPID PROFILEon 11-21-2021 CHOL-HDL RATIO NORM SEE BELOW Normal [facility] Comment on above: Result Comment: 3.3 - 4.4 LOW RISK 4.4 - 7.1 AVERAGE RISK 7.1 - 11.0 MODERATE RISK >11.0 HIGH RISK Performed By: #### C MP, LIPID #### [facility] [address] [place] [address] Dr. Bebeto Alvarado Cholesterol [Mass/Vol] 139 mg/dL Normal <=200 [facility] Comment on above: Performed By: #### C MP, LIPID #### [facility] [address] [place] [address] Dr. Bebeto Alvarado Cholesterol in HDL [Mass/Vol] 35 mg/dL Critically low 40-60 [facility] Comment on above: Performed By: #### C MP, LIPID #### [facility] [address] [address] [address] Bebeto Alvarado Cholesterol in LDL [Mass/Vol] 69.6 mg/dL Normal [facility] Comment on above: Performed By: #### C MP, LIPID #### [facility] [address] [address] [address] Bebeto Alvarado Cholesterol.total/Chol esterol in HDL [Mass ratio] 4.0 {ratio} Normal [facility] Comment on above: Performed By: #### C MP, LIPID #### [facility] [address] [address] [address] Bebeto Alvarado HDL NORMAL > or = 60 mg/dl - LO W CARDIOVASCULAR RISK <40 mg/dl - HIGH CARDIOVASCULAR RISK Normal [facility] Comment on above: Performed By: #### C MP, LIPID #### [facility] [address] [place] [address] Dr. Bebeto Alvarado LDL CALC NORMAL SEE BELOW Normal [facility] Comment on above: Result Comment: <100 mg/dl OPTIMAL 100 - 129 mg/dl NEAR OR ABOVE OPTIMAL 130 - 159 mg/dl BORDERLINE HIGH 160 - 189 mg/dl HIGH >190 mg/dl VERY HIGH Performed By: #### C MP, LIPID #### [facility] [address] [place] [address] Dr. Bebeto Alvarado Triglyceride [Mass/Vol] 172 mg/dL Critically high <=150 [facility] Comment on above: Performed By: #### C MP, LIPID #### [facility] [address] [address] [address] Bebeto Alvarado VLDL CALC 34.4 mg/dL Normal [facility] Comment on above: Performed By: #### C MP, LIPID #### [facility] [address] [address] [address] Bebeto Alvarado PROF 14(COMP METB)on 022 Albumin [Mass/Vol] 3.8 g/dL Normal 3.4-5.0 [facility] Comment on above: Performed By: #### C MP, LIPID #### [facility] [address] [place] [address] Dr. Bebeto Alvarado Albumin/Globulin [Mass ratio] 1.1 {ratio} Normal [facility] Comment on above: Performed By: #### C MP, LIPID #### [facility] [address] [place] [address] Dr. Bebeto Alvarado ALP [Catalytic activity/Vol] 96 U/L Normal 46-116 [facility] Comment on above: Performed By: #### C MP, LIPID #### [facility] [address] [place] [address] Dr. Bebeto Alvarado ALT [Catalytic activity/Vol] 25 U/L Normal 14-59 [facility] Comment on above: Performed By: #### C MP, LIPID #### [facility] [address] [place] [address] Dr. Bebeto Alvarado Anion gap [Moles/Vol] 11.8 mmol/L Normal [facility] Comment on above: Performed By: #### C MP, LIPID #### [facility] [address] [place] [address] Dr. Bebeto Alvarado AST [Catalytic activity/Vol] 20 U/L Normal 15-37 [facility] Comment on above: Performed By: #### C MP, LIPID #### [facility] [address] [place] [address] Dr. Bebeto Alvarado Bilirubin [Mass/Vol] 0.4 mg/dL Normal 0.2-1.0 [facility] Comment on above: Performed By: #### C MP, LIPID #### [facility] [address] [place] [address] Dr. Bebeto Alvarado Calcium [Mass/Vol] 8.8 mg/dL Normal 8.5-10.1 [facility] Comment on above: Performed By: #### C MP, LIPID #### [facility] [address] [place] [address] Dr. Bebeto Alvarado Chloride [Moles/Vol] 106 mmol/L Normal 98-107 [facility] Comment on above: Performed By: #### C MP, LIPID #### [facility] [address] [place] [address] Dr. Bebeto Alvarado CO2 [Moles/Vol] 27.0 mmol/L Normal 21.0-32.0 [facility] Comment on above: Performed By: #### C MP, LIPID #### [facility] [address] [address] [address] Bebeto Alvarado Creatinine [Mass/Vol] 0.97 mg/dL Normal 0.55-1.[address] [facility] Comment on above: Performed By: #### C MP, LIPID #### [facility] [address] [address] [address] Bebeto Alvarado EGFR-AF KITTITIAN >60 Normal >=60 [facility] Comment on above: Performed By: #### C MP, LIPID #### [facility] [address] [address] [address] Bebeto Alvarado EGFR-NON AF KITTITIAN 59 mL/min/1.73m2 Critically low >=60 [facility] Comment on above: Performed By: #### C MP, LIPID #### [facility] [address] [address] [address] Bebeto Alvarado Globulin (S) [Mass/Vol] 3.4 g/dL Normal [facility] Comment on above: Performed By: #### C MP, LIPID #### [facility] [address] [address] [address] Bebeto Alvarado Glucose [Mass/Vol] 103 mg/dL Normal 74-106 [facility] Comment on above: Performed By: #### C MP, LIPID #### [facility] [address] [address] [address] Bebeto Alvarado Potassium [Moles/Vol] 3.8 mmol/L Normal 3.5-5.[address] [facility] Comment on above: Performed By: #### C MP, LIPID #### [facility] [address] [address] [address] Bebeto Alvarado Protein [Mass/Vol] 7.2 g/dL Normal 6.4-8.2 [facility] Comment on above: Performed By: #### C MP, LIPID #### [facility] [address] [address] [address] Bebeto Alvarado Sodium [Moles/Vol] 141 mmol/L Normal 136-145 [facility] Comment on above: Performed By: #### C MP, LIPID #### [facility] [address] [place] [address] Dr. Bebeto Alvarado Urea nitrogen [Mass/Vol] 11.0 mg/dL Normal 7.0-18.0 [facility] Comment on above: Performed By: #### C MP, LIPID #### [facility] [address] [place] [address] Dr. Bebeto Alvarado Urea nitrogen/Creatinine [Mass ratio] 11.3 mg/mg Normal [facility] Comment on above: Performed By: #### C MP, LIPID #### [facility] [address] [place] [address] Dr. Bebeto Alvarado URIC ACID SERUMon 11-21-2021 Urate [Mass/Vol] 7.3 mg/dL Critically high 2.6-6.0 [facility] Comment on above: Performed By: #### A 1C #### [facility] [address] [place] [address] Dr. Bebeto Alvarado VITAMIN B12on 11-21-2021 Cobalamin (Vitamin B12) [Mass/Vol] 2123.0 pg/mL Critically high 193.0-986.0 [facility] Comment on above: Performed By: #### A 1C #### [facility] [address] [place] [address] Dr. Bebeto Alvarado Physician Referralon 022 Physician Referral [id number] Normal [facility] KNEE RIGHT 1 OR 2 VWSon KNEE RIGHT 1 OR 2 VWS [facility] Department of Radiology [address] [place] [id number] ======== Patient Name: MICHELLE BE : 1960 Sex: F Age: Race: White Pt. Location: 84 Patient Status: O Ordered Date: 02/08/2019 10:40:00 AM Completed Date: 02/08/2019 10:38 AM Requesting Provider: AHSAN BINGHAM Attending Provider: AHSAN BINGHAM Report Copy To: Signs & Symptoms: S82.001A Unsp fracture of right patella, init for clos fx I10 History: [place] Comments: , , , Ordering Provider - [...] Electronically signed by:Debra Del Cid. Transcribed by: [email or web address], User Resident: Electronically Signed by: DEBRA DEL CID @ 02/08/2019 11:16 AM Normal [facility] Comment on above: Order Comment: , Vie ws (X-RAY, KNEE): Radiologic Protocol , Weight Bearing?: N , With or Without Brace/Cast/Collar: With , Views (X-RAY, KNEE): Radiologic Protocol , Weight Bearing?: N , With or Without Brace/Cast/Collar: With , , , Ordering Provider - AHSAN BINGHAM PA-C , KNEE RIGHT 1 OR 2 [facility] KNEE RIGHT 1 OR 2 S [facility] Department of Radiology [address] [place] [id number] ======== Patient Name: MICHELLE BE : 1960 Sex: F Age: Race: White Pt. Location: Patient Status: Ordered Date: 12/07/2018 10:20:00 AM Completed Date: 12/07/2018 10:20 AM Requesting Provider: AHSAN BINGHAM Attending Provider: Report Copy To: Signs & Symptoms: S82.001A Unsp fracture of right patella, init for clos fx I10 History: [place] Comments: , , , Ordering Provider - [...] complications. Electronically signed by:Tomasz Stoll. Transcribed by: [email or web address], User Resident: Electronically Signed by: TOMASZ STOLL @ 12/07/2018 11:14 AM Normal [facility] Comment on above: Order Comment: , Vie ws (X-RAY, KNEE): Radiologic Protocol , Weight Bearing?: N , With or Without Brace/Cast/Collar: With , Views (X-RAY, KNEE): Radiologic Protocol , Weight Bearing?: N , With or Without Brace/Cast/Collar: With , , , Ordering Provider - AHSAN BINGHAM PA-C , KNEE RIGHT 1 OR 2 [facility] KNEE RIGHT 1 OR 2 [facility] Department of Radiology [address] [place] [id number] ======== Patient Name: MICHELLE BE : 1960 Sex: F Age: Race: White Pt. 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 Transcribed by: [email or web address], User Resident: Electronically Signed by: ANUP ELLISON @ 10/06/2018 02:48 PM Normal [facility] Comment on above: Order Comment: , Mabel ws (X-RAY, KNEE): Radiologic Protocol , Weight Bearing?: N , With or Without Brace/Cast/Collar: With , Views (X-RAY, KNEE): Radiologic Protocol , Weight Bearing?: N , With or Without Brace/Cast/Collar: With , , , Ordering Provider - AHSAN BINGHAM PA-C , [facility] OR 2 V[facility] Department of Radiology [address] [place] [id number] ======== Patient Name: MICHELLE BE : 1960 Sex: F Age: Race: White Pt. Location: 84 Patient Status: Ordered Date: 08/26/2018 2:30:00 PM Completed Date: 08/26/2018 02:54 PM Requesting Provider: AHSAN BINGHAM Attending Provider: Report Copy To: Signs & Symptoms: S82.001A Unsp fracture of right patella, init for clos fx I10 History: [place] Comments: , , , Ordering Provider - [...] effusion Electronically signed by:Anup Ellison. Transcribed by: [email or web address], User Resident: Electronically Signed by: ANUP ELLISON @ 08/26/2018 04:56 PM Normal [facility] Comment on above: Order Comment: , Vie ws (X-RAY, KNEE): Radiologic Protocol , Weight Bearing?: N , With or Without Brace/Cast/Collar: With , Views (X-RAY, KNEE): Radiologic Protocol , Weight Bearing?: N , With or Without Brace/Cast/Collar: With , , , Ordering Provider - AHSAN BINGHAM PA-C , KNEE RIGHT 1 OR 2 [facility] 07-06 KNEE RIGHT 1 OR 2 S [facility] Department of Radiology [address] [place] [id number] ======== Patient Name: MICHELLE BE : [...] compartment Electronically signed by:Anup Ellison. Transcribed by: [email or web address], User Resident: Electronically Signed by: ANUP ELLISON @ 07/29/2018 03:41 PM Normal [facility] Comment on above: Order Comment: , Mabel ws (X-RAY, KNEE): Radiologic Protocol , Weight Bearing?: N , With or Without Brace/Cast/Collar: With , Views (X-RAY, KNEE): Radiologic Protocol , Weight Bearing?: N , With or Without Brace/Cast/Collar: With , , , Ordering Provider - AHSAN BINGHAM PA-C , KNEE RIGHT 3 Son 9 KNEE RIGHT 3 VWS [facility] Department of Radiology [address] [place] [id number] ======== Patient Name: MICHELLE BE : 1960 Sex: F Age: Race: White Pt. Location: 84 Patient Status: Ordered Date: 07/15/2018 8:45:00 AM Completed Date: 07/15/2018 08:47 AM Requesting Provider: AHSAN BINGHAM Attending Provider: Report Copy To: Signs & Symptoms: S82.001A Unsp fracture of right patella, init for clos fx I10 History: [place] Comments: , , , Ordering Provider - AHSAN BINGHAM PA-C , Exam: KNEE RIGHT 3 [facility] ======== KNEE RIGHT 3 [facility] 07/15/2018 8:47 AM EDT SIGNS AND SYMPTOMS: [...] knee Electronically signed by:Anup Ellison. Transcribed by: [email or web address], User Resident: Electronically Signed by: ANUP ELLISON @ 07/15/2018 03:31 PM Normal [facility] Comment on above: Order Comment: , Vie ws (X-RAY, KNEE): Radiologic Protocol , Weight Bearing?: N , With or Without Brace/Cast/Collar: With , Views (X-RAY, KNEE): Radiologic Protocol , Weight Bearing?: N , With or Without Brace/Cast/Collar: With , , , Ordering Provider - AHSAN BINGHAM PA-C , Operative Reporton 9 Operative Report MR#: [id number] [facility] Pt. Name: Michelle Be Room #: [...] Duarte MD Date Trans: 07/03/2018 04:28 A/mmo [id number] Normal [facility] *ANAEROBIC CULTUREon 019 *ANAEROBIC CULTURE Clinical Report: (D) Specimen/Source: SWAB/RT KNEE Collected: 07/02/2018 13:53 Status: Final Last Updated: 07/07/2018 08:02 CULT RES (Final) No Anaerobes Isolated 5 Days Normal [facility] Comment on above: Performed By: #### 3 0312 #### [address] *WOUND CULTUREon 07-02-2018 *WOUND CULTURE Clinical Report: (D) Specimen/Source: WOUND/INTRAOP SPEC Collected: 07/02/2018 13:53 Status: Final Last Updated: 07/07/2018 10:13 (1) #1 RT KNEE GRAM (Final) Rare Polys No Bacteria Seen CULT RES (Final) No Growth Day 5 Normal [facility] Comment on above: Order Comment: #1 RT KNEE Performed By: #### 3 0343 #### [address] KNEE RIGHT 1 OR 2 [facility] 06-05 KNEE RIGHT 1 OR 2 [facility] Department of Radiology [address] [place] [id number] ======== Patient Name: MICHELLE BE : [...] Electronically signed by:Debra Del Cid. Transcribed by: [email or web address], User Resident: Electronically Signed by: DEBRA DEL CID @ 07/02/2018 02:03 PM Normal [facility] Comment on above: Order Comment: ORIF VS PERCUTANEOUS FIXATION RIGHT PATELLA POC GLUCOSE LABon 07-02-2018 Glucose [Mass/Vol] 108 mg/dL High 70-100 [facility] Comment on above: Performed By: #### 8 5499 #### [facility] [address] [place] [address], [facility] APTTon 06-30-2018 aPTT Coag (Bld) [Time] 30.6 s Normal 25.0-35.0 [facility] Comment on above: Result Comment: ALL [...] THIS PURPOSE. Performed By: #### 5 6101, [id number] #### [facility] [address] [place] [address], [facility] BASIC METABOLIC PANELon 06-05 Calcium [Mass/Vol] 9.7 mg/dL Normal 8.6-10.3 [facility] Comment on above: Performed By: #### 0 0071 #### [facility] [address] [place] [id number], [facility] Chloride [Moles/Vol] 102 mmol/L Normal 98-107 [facility] Comment on above: Performed By: #### 0 0071 #### [facility] [address] [place] [address], [place] CO2 [Moles/Vol] 28 mmol/L Normal 21-31 [facility] Comment on above: Performed By: #### 0 0071 #### [facility] [address] [place] [address], [facility] Creatinine [Mass/Vol] 1.20 mg/dL Normal 0.60-1.20 [facility] Comment on above: Performed By: #### 0 0071 #### [facility] [address] [place] [address], [place] GFR/1.73 sq M predicted among blacks MDRD (S/P/Bld) [Vol rate/Area] 56 ml/min/1.73sq m Abnormal >60 [facility] Comment on above: Performed By: #### 0 0071 #### [facility] [address] [place] [address], [place] GFR/1.73 sq M predicted among non-blacks MDRD (S/P/Bld) [Vol rate/Area] 47 ml/min/1.73sq m Abnormal >60 [facility] Comment on above: Performed By: #### 0 0071 #### [facility] [address] [place] [address], [place] Glucose [Mass/Vol] 97 mg/dL Normal 70-100 [facility] Comment on above: Performed By: #### 0 0071 #### [facility] [address] Potassium [Moles/Vol] 4.1 mmol/L Normal 3.5-5.1 [facility] Comment on above: Performed By: #### 0 0071 #### [facility] [address] [facility]. [address] Sodium [Moles/Vol] 137 mmol/L Normal 136-145 [facility] Comment on above: Performed By: #### 0 0071 #### [facility] [address] Urea nitrogen [Mass/Vol] 19 mg/dL Normal 7-25 [facility] Comment on above: Performed By: #### 0 0071 #### [facility] [address] CBC W/DIFFon 06-30-2018 ABS BASOPHILS 0.1 10*3/uL Normal 0.0-0.2 [facility] Comment on above: Performed By: #### 5 010 #### [facility] [address] ABS IMM GRANS 0.0 10*3/uL Normal 0.0-0.2 [facility] Comment on above: Performed By: #### 5 3 #### [facility] [address] ABS NEUTROPHILS 6.4 10*3/uL Normal 1.6-7.6 [facility] Comment on above: Performed By: #### 5 102 #### [facility] [address] Basophils/100 WBC (Bld) 0.7 % Normal 0.0-1.0 [facility] Comment on above: Performed By: #### 5 3 #### [facility] [address] Eosinophils (Bld) [#/Vol] 0.2 10*3/uL Normal 0.0-0.5 [facility] Comment on above: Performed By: #### 5 0103 #### [facility] [address] [place] [address], [facility] Eosinophils/100 WBC (Bld) 1.5 % Normal 0.0-6.0 [facility] Comment on above: Performed By: #### 5 0103 #### [facility] [address] [facility] [place] [address], [facility] Erythrocyte distribution width (RBC) [Ratio] 14.4 % Normal 11.5-15.0 [facility] Comment on above: Performed By: #### 5 0103 #### [facility] [address] [place] [address], [facility] Hematocrit (Bld) [Volume fraction] 40.6 % Normal 36.0-45.0 [facility] Comment on above: Performed By: #### 5 0103 #### [facility] [address] [facility] [place] [address], [facility] Hemoglobin (Bld) [Mass/Vol] 13.3 g/dL Normal 12.0-15.0 [facility] Comment on above: Performed By: #### 5 0103 #### [facility] [address] [facility] [place] [address], [facility] IMMATURE GRANS 0.4 % Normal 0.0-1.0 [facility] Comment on above: Performed By: #### 5 0103 #### [facility] [address] [place] [address], [facility] Lymphocytes (Bld) [#/Vol] 2.6 10*3/uL Normal 1.2-4.0 [facility] Comment on above: Performed By: #### 5 3 #### [facility] [address] [place] [id number], [facility] Lymphocytes/100 WBC (Bld) 26.5 % Normal 20.0-45.0 [facility] Comment on above: Performed By: #### 5 0103 #### [facility] [address] [place] [address], [facility] MCH (RBC) [Entitic mass] 27.4 pg Normal 27.0-33.0 [facility] Comment on above: Performed By: #### 5 0103 #### [facility] [address] [facility] [place] [address], [facility] MCHC (RBC) [Mass/Vol] 32.8 g/dL Normal 32.0-35.0 [facility] Comment on above: Performed By: #### 5 0103 #### [facility] [address] [facility] [place] [address], [facility] MCV (RBC) [Entitic vol] 83.5 fL Normal 82.0-98.0 [facility] Comment on above: Performed By: #### 5 0103 #### [facility] [address] [facility] [place] [address], [facility] Monocytes (Bld) [#/Vol] 0.5 10*3/uL Normal 0.1-1.0 [facility] Comment on above: Performed By: #### 5 0103 #### [facility] [address] [facility] [place] [address], [facility] MONOS 5.0 % Normal 5.0-12.0 [facility] Comment on above: Performed By: #### 5 0103 #### [facility] [address] [facility] [place] [address], [facility] Neutrophils/100 WBC (Bld) 65.9 % Normal 40.0-72.0 [facility] Comment on above: Performed By: #### 5 3 #### [facility] [address] [place] [address], [facility] Nucleated RBC/100 WBC (Bld) [Ratio] 0 % Normal 0-0 [facility] Comment on above: Performed By: #### 5 0103 #### [facility] [address] [facility]. [address] PLAT CNT 290 10*3/uL Normal 150-400 [facility] Comment on above: Performed By: #### 5 0103 #### [facility] [address] [place] [address], [facility] RBC (Bld) [#/Vol] 4.86 10*6/uL Normal 3.80-5.00 [facility] Comment on above: Performed By: #### 5 0103 #### [facility] [address] [place] [address], [facility] WBC (Bld) [#/Vol] 9.68 10*3/uL Normal 4.00-10.60 [facility] Comment on above: Performed By: #### 5 0103 #### [facility] [address] KNEE RIGHT 1 OR 2 VWSon - KNEE RIGHT 1 OR 2 VWS [facility] Department of Radiology [address] [place] [phone] ======== Patient Name: MICHELLE BE : 1960 Sex: F Age: Race: White Pt. 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 Transcribed by: [email or web address], User Resident: Electronically Signed by: DEBRA DEL CID @ 06/30/2018 11:52 AM [facility] Comment on above: Order Comment: , Mabel ws (X-RAY, KNEE): Radiologic Protocol , Weight Bearing?: N , With or Without Brace/Cast/Collar: With , Views (X-RAY, KNEE): Radiologic Protocol , Weight Bearing?: N , With or Without Brace/Cast/Collar: With , , , Ordering Provider - AHSAN BINGHAM PA-C , PROTHROMBIN TIMEon 9 INR Coag (PPP) [Relative time] 0.98 {INR} Normal 0.91-1.16 [facility] Comment on above: Result Comment: ACCC [...] CHEST 1995;108:231S-246S. Performed By: #### 5 6101, [id number] #### [address] PT Coag (PPP) [Time] 13.0 s Normal 12.3-14.8 [facility] Comment on above: Result Comment: ALL RESULTS MUST BE INTERPRETED WITH RESPECT TO BLOOD DRAWING ARTIFACT OR DILUTION ERROR OF ANTICOAGULANT AT THE TIME OF SAMPLING. Performed By: #### 5 6101, [id number] #### [address] KNEE RIGHT 3 VWSon 9 KNEE RIGHT 3 [facility] Department of Radiology [address] [place] [phone] ======== Patient Name: MICHELLE BE : 1960 Sex: F Age: Race: White Pt. Location: 84 Patient Status: O Ordered Date: 06/15/2018 1:35:00 PM Completed Date: 06/15/2018 01:34 PM Requesting Provider: AMPARO ZHANG Attending Provider: AMPARO ZHANG Report Copy To: ADELAIDA CARRION Signs & Symptoms: M17.11 Unilateral primary osteoarthritis, right knee I10 History: [place] Comments: , Weight Bearing?: Y , Weight [...] effusion Electronically signed by:Anup Ellison. Transcribed by: [email or web address], User Resident: Electronically Signed by: ANUP ELLISON @ 06/15/2018 03:50 PM Normal [facility] Comment on above: Order Comment: , Isaiah ght Bearing?: Y , Weight Bearing?: Y , , , Ordering Provider - AMPARO ZHANG PA-C , Vital Signs Date Time Vital Sign Value Performing Clinician Facility 03-16-2024 09:53-0500 Body height 162.6 cm Adelaida Sheyla [employer] Work Phone: [facility] 03-16-2024 09:53-0500 Body mass index (BMI) [Ratio] 48.41 kg/m2 Adelaida Sheyla [employer] Work Phone: [facility] 03-16-2024 09:53-0500 Body temperature 98.01 [degF] Adelaida Sheyla [employer] Work Phone: [facility] 03-16-2024 09:53-0500 Body weight 127.91 kg Adelaida Sheyla [employer] Work Phone: [facility] 03-16-2024 09:53-0500 Diastolic blood pressure 80 mm[Hg] Adelaida Sheyla [employer] Work Phone: [facility] 03-16-2024 09:53-0500 Heart rate 79 /min Adelaida Carrion [employer] Work Phone: [facility] 03-16-2024 09:53-0500 Respiratory rate 18 /min Adelaida Sheyla [employer] Work Phone: [facility] 03-16-2024 09:53-0500 SaO2% (BldA) [Mass fraction] 98 % Adelaida Carrion [employer] Work Phone: [facility] 03-16-2024 09:53-0500 Systolic blood pressure 120 mm[Hg] Adelaida Carrion [employer] Work Phone: [facility] 03-10-2024 15:20-0500 Body height 162.6 cm Rachel Mitchell PA Work Phone: [facility] 03-10-2024 15:20-0500 Body mass index (BMI) [Ratio] 48.41 kg/m2 Rachel Mitchell PA Work Phone: [facility] 03-10-2024 15:20-0500 Body weight 127.91 kg Rachel Mitchell PA Work Phone: [facility] 03-10-2024 15:20-0500 Diastolic blood pressure 68 mm[Hg] Rachel Mitchell PA Work Phone: [facility] 03-10-2024 15:20-0500 Heart rate 74 /min Rachel Mitchell PA Work Phone: [facility] 03-10-2024 15:20-0500 Respiratory rate 16 /min Rachelgeorgette Mitchell PA Work Phone: [facility] 03-10-2024 15:20-0500 SaO2% (BldA) [Mass fraction] 98 % Rachel Mitchell PA Work Phone: [facility] 03-10-2024 15:20-0500 Systolic blood pressure 102 mm[Hg] Rachel Mitchell PA Work Phone: [facility] 03-01-2024 12:48-0500 Body height 162.6 cm Juany Lowe PA Work Phone: [facility] 03-01-2024 12:48-0500 Body mass index (BMI) [Ratio] 48.92 kg/m2 Juany Lowe PA Work Phone: [facility] 03-01-2024 12:48-0500 Body weight 129.28 kg Juany Lowe PA Work Phone: [facility] 03-01-2024 12:48-0500 Diastolic blood pressure 88 mm[Hg] Juany Lowe PA Work Phone: [facility] 03-01-2024 12:48-0500 Systolic blood pressure 140 mm[Hg] Juany Kirbygeorgette PA Work Phone: [facility] 02-16-2024 11:18-0500 Body height 162.6 cm Adelaida Sheyla [employer] Work Phone: [facility] 02-16-2024 11:18-0500 Body mass index (BMI) [Ratio] 50.77 kg/m2 Adelaida Sheyla [employer] Work Phone: [facility] 02-16-2024 11:18-0500 Body temperature 98.49 [degF] Adelaidamonse Carrion [employer] Work Phone: [facility] 02-16-2024 11:18-0500 Body weight 134.17 kg Adelaida Sheyla [employer] Work Phone: [facility] 02-16-2024 11:18-0500 Diastolic blood pressure 82 mm[Hg] Adelaida Kelsiez [employer] Work Phone: [facility] 02-16-2024 11:18-0500 Heart rate 69 /min Adelaida Kelsiez [employer] Work Phone: [facility] 02-16-2024 11:18-0500 Respiratory rate 20 /min Adelaida Kelsiez [employer] Work Phone: [facility] 02-16-2024 11:18-0500 SaO2% (BldA) [Mass fraction] 98 % Adelaida Sheyla [employer] Work Phone: [facility] 02-16-2024 11:18-0500 Systolic blood pressure 122 mm[Hg] Adelaida Kelsiez [employer] Work Phone: [facility] 01-28-2024 13:46-0400 Body height 162.6 cm Adelaida Sheyla [employer] Work Phone: [facility] 01-28-2024 13:46-0400 Body mass index (BMI) [Ratio] 48.99 kg/m2 Adelaida Aichholz [employer] Work Phone: [facility] 01-28-2024 13:46-0400 Body temperature 98.71 [degF] Adelaida Yingsherineholz [employer] Work Phone: [facility] 01-28-2024 13:46-0400 Body weight 129.46 kg Adelaida Merryholz [employer] Work Phone: [facility] 01-28-2024 13:46-0400 Diastolic blood pressure 78 mm[Hg] Adelaida Yingsherineholz [employer] Work Phone: [facility] 01-28-2024 13:46-0400 Heart rate 81 /min Adelaida Yingalissaz [employer] Work Phone: [facility] 01-28-2024 13:46-0400 Respiratory rate 18 /min Adelaida Merrykushz [employer] Work Phone: [facility] 01-28-2024 13:46-0400 SaO2% (BldA) [Mass fraction] 99 % Adelaida Merrykushz [employer] Work Phone: [facility] 01-28-2024 13:46-0400 Systolic blood pressure 110 mm[Hg] Adelaida Merryholz [employer] Work Phone: [facility] 01-04-2024 09:39-0400 Body height 162.6 cm Adelaida Yingalissaz [employer] Work Phone: [facility] 01-04-2024 09:39-0400 Body mass index (BMI) [Ratio] 48.75 kg/m2 Adelaida Yingsherineholz [employer] Work Phone: [facility] 01-04-2024 09:39-0400 Body temperature 97.81 [degF] Adelaida Yingsherineholz [employer] Work Phone: [facility] 01-04-2024 09:39-0400 Body weight 128.82 kg Adelaida Yinghholz [employer] Work Phone: [facility] 01-04-2024 09:39-0400 Diastolic blood pressure 78 mm[Hg] Adelaida Carrion [employer] Work Phone: [facility] 01-04-2024 09:39-0400 Heart rate 67 /min Adelaida Carrion [employer] Work Phone: [facility] 01-04-2024 09:39-0400 Respiratory rate 19 /min Adelaida Carrion [employer] Work Phone: [facility] 01-04-2024 09:39-0400 SaO2% (BldA) [Mass fraction] 99 % Adelaida Carrion [employer] Work Phone: [facility] 01-04-2024 09:39-0400 Systolic blood pressure 116 mm[Hg] Adelaida Carrion [employer] Work Phone: [facility] 12-09-2023 10:14-0400 Body height 162.6 cm Juany Samanthamor [employer] Work Phone: [facility] 12-09-2023 10:14-0400 Body mass index (BMI) [Ratio] 48.92 kg/m2 Juany Gillmor [employer] Work Phone: [facility] 12-09-2023 10:14-0400 Body weight 129.28 kg Juany Gillmor [employer] Work Phone: [facility] 12-09-2023 10:14-0400 Diastolic blood pressure 78 mm[Hg] Juany Gillmor [employer] Work Phone: [facility] 12-09-2023 10:14-0400 SaO2% (BldA) [Mass fraction] 97 % Juany Gillmor [employer] Work Phone: [facility] 12-09-2023 10:14-0400 Systolic blood pressure 122 mm[Hg] Juany Gillmor [employer] Work Phone: [facility] 12-08-2023 15:24-0400 Body height 162.6 cm Sonam Brown [employer] Work Phone: [facility] 12-08-2023 15:24-0400 Body mass index (BMI) [Ratio] 48.92 kg/m2 Sonam Brown [employer] Work Phone: [facility] 12-08-2023 15:24-0400 Body weight 129.28 kg Sonam Brown [employer] Work Phone: [facility] 12-08-2023 15:24-0400 Diastolic blood pressure 77 mm[Hg] Sonam Franzgel [employer] Work Phone: [facility] 12-08-2023 15:24-0400 Heart rate 72 /min Sonam Brown [employer] Work Phone: [facility] 12-08-2023 15:24-0400 Systolic blood pressure 134 mm[Hg] Sonam Brown [employer] Work Phone: [facility] 05-18-2023 16:30-0500 Body height 162.6 cm Adelaida Hejosue [employer] Work Phone: [facility] 05-18-2023 16:30-0500 Body mass index (BMI) [Ratio] 47.89 kg/m2 Adelaidamonse Healissaz [employer] Work Phone: [facility] 05-18-2023 16:30-0500 Body temperature 97.3 [degF] Adelaida Kelsiez [employer] Work Phone: [facility] 05-18-2023 16:30-0500 Body weight 126.55 kg Adelaida Kelsiez [employer] Work Phone: [facility] 05-18-2023 16:30-0500 Diastolic blood pressure 80 mm[Hg] Adelaida Kelsiez [employer] Work Phone: [facility] 05-18-2023 16:30-0500 Heart rate 76 /min Adelaida Yinghholz [employer] Work Phone: [facility] 05-18-2023 16:30-0500 Respiratory rate 19 /min Adelaida Yinghholz [employer] Work Phone: [facility] 05-18-2023 16:30-0500 SaO2% (BldA) [Mass fraction] 97 % Adelaida Aichholz [employer] Work Phone: [facility] 05-18-2023 16:30-0500 Systolic blood pressure 134 mm[Hg] Adelaida Aichholz [employer] Work Phone: [facility] 03-23-2023 12:10-0500 Diastolic blood pressure 98 mm[Hg] Adelaida Aichholz Work Phone: [facility] 03-23-2023 12:10-0500 Heart rate 76 /min Adelaida Aichholz Work Phone: [facility] 03-23-2023 12:10-0500 Respiratory rate 18 /min Adelaida Aichholz Work Phone: [facility] 03-23-2023 12:10-0500 SaO2% (BldA) [Mass fraction] 99 % Adelaida Aichholz Work Phone: [facility] 03-23-2023 12:10-0500 Systolic blood pressure 162 mm[Hg] Adelaida Aichholz Work Phone: [facility] 03-23-2023 10:53-0500 Body height 162.56 cm Adelaida Aichholz Work Phone: [facility] 03-23-2023 10:53-0500 Body weight 125.64 kg Adelaida Aichholz Work Phone: [facility] 12-19-2022 14:55-0400 Body height 162.56 cm Rosemary Kirkland Other [facility] [employer] Other 12-19-2022 14:55-0400 Body mass index (BMI) [Ratio] 47.85 kg/m2 Rosemary Kirkland Other [facility] [employer] Other 12-19-2022 14:55-0400 Body temperature 97.8 [degF] Rosemary Kirkland Other [employer] Other 12-19-2022 14:55-0400 Body weight 126.46 kg Rosemary Kirkland Other [employer] Other 12-19-2022 14:55-0400 Respiratory rate 20 /min Rosemary Kirkland Other [employer] Other 12-19-2022 14:55-0400 SaO2% (BldA) [Mass fraction] 95 % Rosemary Kirkland Other [employer] Other 11-20-2022 13:12-0400 Body temperature 97.7 [degF] Adelaida Aichholz Work Phone: [facility] 11-20-2022 13:12-0400 SaO2% (BldA) [Mass fraction] 96 % Adelaida Aichholz Work Phone: [facility] 11-20-2022 07:44-0400 Diastolic blood pressure 90 mm[Hg] Adelaida Aichholz Work Phone: [facility] 11-20-2022 07:44-0400 Heart rate 103 /min Adelaida Aichholz Work Phone: [facility] 11-20-2022 07:44-0400 Systolic blood pressure 152 mm[Hg] Adelaida Aichholz Work Phone: [facility] 11-19-2022 20:00-0400 Respiratory rate 18 /min Adelaida Aichholz Work Phone: [facility] 11-18-2022 15:18-0400 Body height 162.56 cm Adelaida Aichholz Work Phone: [facility] 11-17-2022 09:00-0400 Body weight 122.92 kg Adelaida Aichholz Work Phone: [facility] Encounters Encounter Date Encounter Type Care Provider Facility Start: 04-12-2024 End: 04-12-2024 Refill Juany REDDY Work Phone: [facility] [place] [facility] Comment on above: Transient alteration of awareness (Primary Dx); Restless leg Start: 04-07-2024 End: 04-07-2024 Patient encounter procedure David Foster PhD Work Phone: [facility] Comment on above: Metabolic encephalop athy (Primary Dx); Memory change; Altered mental status, unspecified altered mental status type; Concentration deficit; PTSD (post-traumatic stress disorder) (CMS/HCC); Bipolar affective disorder, remission status unspecified (CMS/HCC); Family history of dementia; 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CMS/HCC); OSMANY (obstructive sleep apnea) Start: 04-07-2024 End: 04-07-2024 ambulatory ADELAIDA AICALISSAZ Not Available Start: 03-22-2024 End: 03-22-2024 ambulatory RACHEL MITCHELL Not Available Start: 03-16-2024 End: 03-16-2024 Bamboo flowsheet Adelaida Aichholz [employer] Work Phone: [facility] Start: 03-16-2024 End: 03-16-2024 Bamboo flowsheet Adelaida Aichholz [employer] Work Phone: [facility] Start: 03-16-2024 End: 03-16-2024 Office outpatient visit 25 minutes Adelaida Aichkushz [employer] Work Phone: [facility] Comment on above: Metabolic encephalop athy (Primary Dx); OSMANY (obstructive sleep apnea); Morbid obesity (CMS/HCC); Bilateral lower extremity edema; Tobacco dependence; Bipolar disorder with severe depression (CMS/HCC); At risk for polypharmacy; Anxiety; Primary hypertension (CMS/HCC); Right bundle branch block (RBBB) determined by electrocardiography Start: 03-16-2024 End: 03-16-2024 ambulatory ADELAIDA AICHHOLZ Not Available Start: 03-15-2024 End: 03-16-2024 Telephone encounter David Norman MA [facility] Start: 03-14-2024 End: 03-14-2024 Bamboo flowsheet David Foster PhD Work Phone: [facility] Start: 03-14-2024 End: 03-14-2024 Bamboo flowsheet David Foster PhD Work Phone: [facility] Start: 03-14-2024 End: 03-14-2024 ambulatory DAVID FOSTER Not Available Start: 03-14-2024 End: 03-14-2024 Patient encounter procedure David Foster PhD Work Phone: [facility] Comment on above: Altered mental statu s, unspecified altered mental status type (Primary Dx); Memory change; Concentration deficit; 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 (CMS/HCC); PTSD (post-traumatic stress disorder) (CMS/HCC); Bipolar affective disorder, remission status unspecified (CMS/HCC); Family history of dementia Start: 03-10-2024 End: 03-10-2024 Office outpatient visit 25 minutes Rachel REDDY Work Phone: [facility] Comment on above: Altered mental statu s, unspecified altered mental status type (Primary Dx); Restless leg; 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CMS/HCC); OSMANY (obstructive sleep apnea) Start: 03-10-2024 End: 03-10-2024 ambulatory RACHEL MITCHELL Not Available Start: 03-09-2024 ambulatory Edurado Monk Facility:[facility] Start: 03-03-2024 End: 03-07-2024 Evaluation and management of inpatient Adelaida Carrion Facility:[facility] Start: 03-02-2024 End: 03-04-2024 Clinisync Result Encounter Generic External Data Provider [facility] External Department Unsolicited Start: 03-02-2024 End: 03-04-2024 Clinisync Result Encounter Generic External Data Provider [facility] External Department Unsolicited Start: 03-02-2024 End: 03-02-2024 Refill Adelaida Carrion NP Work Phone: [facility] Comment on above: Yeast infection of t he skin Start: 03-01-2024 End: 03-01-2024 ambulatory JUANY LEGGETT Not Available Start: 03-01-2024 End: 03-01-2024 Office outpatient visit 25 minutes Juany Leggett PA Work Phone: [facility] [place] [facility] Comment on above: Metabolic encephalop athy (Primary Dx); OSMANY (obstructive sleep apnea); Restless leg; 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 (CMS/HCC); Degeneration of intervertebral disc of lumbar region with discogenic back pain and lower extremity pain; Memory change Start: 02-28-2024 End: 02-29-2024 Refill Adelaida Carrion NP Work Phone: [facility] Comment on above: Allergic rhinitis, u nspecified Start: 02-24-2024 End: 02-24-2024 Refill Adelaida Carrion NP Work Phone: [facility] Comment on above: Essential (primary) hypertension (CMS/HCC); Allergic rhinitis, unspecified Start: 02-16-2024 End: 02-16-2024 Bamboo flowsheet Adelaida Carrion NP Work Phone: [facility] Start: 02-16-2024 End: 02-23-2024 Clinisync Result Encounter Adelaida Carrion NP Work Phone: [facility] External Department Unsolicited Start: 02-16-2024 End: 02-23-2024 Clinisync Result Encounter Adelaida Carrion NP Work Phone: [facility] External Department Unsolicited Start: 02-16-2024 End: 02-16-2024 Patient encounter procedure Adelaida Carrion NP Work Phone: [facility] Healthcare Start: 02-16-2024 End: 02-16-2024 Periodic preventive med est patient 40-64yrs Adelaida Carrion NP Work Phone: [facility] Comment on above: Well woman exam with routine gynecological exam (Primary Dx); Morbid obesity ([facility]) Start: 02-16-2024 End: 02-16-2024 ambulatory ADELAIDA SHEYLA Not Available Start: 02-04-2024 End: 02-04-2024 Refill Sonam Brown [employer] Work Phone: [facility] [place] [facility] Comment on above: Restless leg Start: 01-28-2024 End: 01-28-2024 Bamboo flowsheet Adelaida Carrion [employer] Work Phone: [facility] Start: 01-28-2024 End: 01-28-2024 Bamboo flowsheet Adelaida Carrion [employer] Work Phone: [facility] Start: 01-28-2024 End: 01-28-2024 Office outpatient visit 15 minutes Adelaida Carrion [employer] Work Phone: [facility] Comment on above: Acute cystitis witho ut hematuria (Primary Dx); Tobacco dependence; Needs flu shot; Morbid obesity ([facility]/HCC) Start: 01-28-2024 End: 01-28-2024 ambulatory ADELAIDA SHEYLA Not Available Start: 01-25-2024 End: 01-25-2024 ambulatory Syeda Mancuso MD Facility:[facility] Start: 01-21-2024 End: 01-25-2024 Clinisync Result Encounter Generic External Data Provider [facility] External Department Unsolicited Start: 01-21-2024 End: 01-25-2024 Clinisync Result Encounter Generic External Data Provider [facility] External Department Unsolicited Start: 01-05-2024 End: 01-05-2024 Clinisync Result Encounter Adelaida Carrion [employer] Work Phone: [facility] External Department Unsolicited Start: 01-05-2024 End: 01-05-2024 Clinisync Result Encounter Adelaida Carrion [employer] Work Phone: [facility] Department Unsolicited Start: 01-04-2024 End: 01-04-2024 Bamboo flowsheet Adelaida Carrion [employer] Work Phone: [facility] Start: 01-04-2024 End: 01-04-2024 Bamboo flowsheet Adelaida Yingsherinerhonda [employer] Work Phone: [facility] Start: 01-04-2024 End: 01-04-2024 Office outpatient visit 25 minutes Adelaida Yingsherinerhonda [employer] Work Phone: [facility] Comment on above: Bilateral lower extr emity edema (Primary Dx); Essential (primary) hypertension (CMS/HCC); Allergic rhinitis, unspecified; OSMANY (obstructive sleep apnea); Primary hypertension (CMS/HCC); Morbid obesity (CMS/HCC) Start: 01-04-2024 End: 01-04-2024 ambulatory ADELAIDA SHEYLA Not Available Start: 12-30-2023 End: 12-30-2023 Refill Adelaida Sheyla [employer] Work Phone: [facility] Comment on above: Lower extremity elis a Start: 12-09-2023 End: 12-09-2023 Office outpatient visit 25 minutes Juany Caballero [employer] Work Phone: [facility] [place] [facility] Comment on above: OSMANY (obstructive sle ep apnea) (Primary Dx); Restless leg Start: 12-09-2023 End: 12-09-2023 ambulatory JUANYMonse CABALLERO Not Available Start: 12-08-2023 End: 12-08-2023 ambulatory SONAM C WINDNAGEL Not Available Start: 12-08-2023 End: 12-08-2023 Office outpatient visit 25 minutes Sonam C Windnagel [employer] Work Phone: [facility] [place] [facility] Comment on above: 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CMS /HCC) (Primary Dx); Restless leg; Metabolic encephalopathy Start: 12-08-2023 End: 12-08-2023 Bamboo flowsheet Sonam C Windnagel [employer] Work Phone: [facility] [place] [facility] Start: 12-08-2023 End: 12-08-2023 Bamboo flowsheet Sonam C Windnagel [employer] Work Phone: [facility] Start: 11-27-2023 End: 11-27-2023 Refill Adelaida Aichholz [employer] Work Phone: [facility] Comment on above: Yeast infection of t he skin (Primary Dx) Start: 10-21-2023 End: 10-21-2023 ambulatory ADELAIDA AICHHOLZ Not Available Start: 10-14-2023 End: 10-14-2023 ambulatory SONAM BROWN Not Available Start: 10-05-2023 End: 10-05-2023 ambulatory ADELAIDA AICHHOLZ Not Available Start: 09-21-2023 End: 09-21-2023 ambulatory ADELAIDA AICHHOLZ Not Available Start: 08-17-2023 End: 08-17-2023 ambulatory ADELAIDA AICHHOLZ Not Available Start: 07-23-2023 End: 07-23-2023 ambulatory ADELAIDA AICHHOLZ Not Available Start: 07-07-2023 End: 07-07-2023 ambulatory ADELAIDA AICHHOLZ Not Available Start: 06-29-2023 End: 06-29-2023 ambulatory Syeda Mancuso MD Facility:[facility] Start: 05-22-2023 End: 05-22-2023 ambulatory ASHLEIGH HINES Not Available Start: 05-21-2023 Refill Adelaida Aichholz [employer] Work Phone: [facility] Comment on above: Acute cystitis with hematuria (Primary Dx) Start: 05-18-2023 End: 05-18-2023 Office outpatient visit 25 minutes Adelaida Aichholz [employer] Work Phone: [facility] Comment on above: Encounter for annual wellness [...] Available Start: 05-18-2023 Bamboo flowsheet Adelaida Carrion [employer] Work Phone: [facility] Start: 05-18-2023 Bamboo flowsheet Adelaida Carrion [employer] Work Phone: [facility] Start: 05-18-2023 End: 05-18-2023 Patient encounter procedure Adelaida Carrion [employer] Work Phone: [facility] Start: 03-23-2023 End: 03-23-2023 Admission to same day surgery center Adelaida Carrion Work Phone: [facility] Work Phone: Start: 03-23-2023 End: 03-23-2023 ambulatory Adelaida Carrion Work Phone: [facility] Work Phone: Start: 02-12-2023 End: 02-12-2023 ambulatory Jace Graham Other [employer] Other Start: 02-12-2023 Telephone encounter Jace CORADO G [employer] Mck[employer] Start: 12-19-2022 End: 12-19-2022 ambulatory Rosemary Kirkland Other [employer] Other Start: 12-19-2022 Office outpatient ne w 10 minutes Rosemary Kirkland [facility] [place] Start: 11-17-2022 End: 11-20-2022 Evaluation and management of inpatient Adelaida Carrion Work Phone: [facility] [place] [address] Work Phone: Start: 09-04-2022 ambulatory ARIAN JOHNSON . Facili ty:H1 Start: 08-26-2022 ambulatory HERBERTH CRAMER . Facility:[facility]1 Start: 08-08-2022 End: 08-09-2022 ambulatory [address] ADELAIDA SHEYLA Facility:[facility]1 Start: 07-25-2022 End: 07-26-2022 ambulatory [address] ADELAIDA SHEYLA Facility:[facility]1 Start: 07-15-2022 End: 07-15-2022 ambulatory NARENDRANATH LAKSHMIPATHY . Facility:[facility]1 Start: 07-11-2022 ambulatory NARENDRANATH LAKSHMIPATHY . Facility:[facility]1 Start: 06-26-2022 End: 06-27-[address] FINA NIXON . Facility:[facility]1 Start: 06-11-2022 ambulatory [address] ADELAIDA CARRION Facil ity:H1 Start: 05-21-2022 End: 06-11-2022 ambulatory [address] ADELAIDA SHEYLA Facility:[facility]1 Start: 05-08-2022 End: 05-09-2022 ambulatory [address] ADELAIDA CARRION Facility:[facility]1 Start: 04-28-2022 End: 04-28-2022 ambulatory [address] ADELAIDA CARRION Facility:[facility]1 Start: 04-03-2022 End: 04-04-[address] FINA NIXON . Facility:[facility]1 Start: 03-19-2022 End: 03-20-2022 ambulatory [address] ADELAIDA CARRION Facility:[facility]1 Start: 02-20-2022 End: 02-20-2022 ambulatory GILMER NEVES Facility:[facility]1 Start: 01-10-2022 End: 02-12-2022 ambulatory BRIDGETTE MACEDO Facility:[facility]1 Start: 01-02-2022 End: 01-03-[address] FINA NIXON . Facility:[facility]1 Start: 01-01-2022 End: 01-02-2022 ambulatory BRIDGETTE MACEDO Facility:[facility]1 Start: 12-16-2021 End: 12-16-2021 ambulatory [address] ADELAIDA PINEDARHONDA Facility:[facility]1 Start: 11-21-2021 End: 11-22-[address] DOCTOR BERGERON Facility:[facility]1 Start: 10-03-2021 End: 10-04-[address] FINA NIXON . Facility:[facility]1 Start: 09-19-[address] FINA NIXON . Faci lity:H1 Start: 09-12-2021 End: 09-12-2021 ambulatory [address] ADELAIDA CARRION Facility:[facility]1 Start: 08-20-2021 End: 08-20-[address] FINA NIXON . Facility: Start: 07-02-2018 End: 07-03-2018 Patient encounter procedure SUKI EBRAHEIM Facility:[facility] Procedures Date Procedure Procedure Detail Performing Clinician Start: 03-02-2024 BLOOD CULTURE 1 Generic External Data Provider Start: 02-16-2024 IGP,APTIMA HPV,AGE GDLN Adelaida Carrion [employer] Work Phone: Start: 01-28-2024 Urnls dip stick/tabl et rgnt non-auto w/o micrscp Adelaida Carrion [employer] Work Phone: Start: 01-21-2024 MHPT CULT,URINE Generic External Data Provider Start: 01-05-2024 ALL BASIC METABOLIC PANEL Adelaida Carrion [employer] Work Phone: Start: 09-18-2023 Mammography Adelaida ramos [employer] Work Phone: Start: 03-23-2023 Screening colonoscopy L oneal Carrion Work Phone: Start: 03-23-2023 Colonoscopy Adelaida ramos [employer] Work Phone: Start: 09-15-2022 Mammography Adelaida ramos [employer] Work Phone: Start: 08-28-2022 Microscopic observat ion [Identifier] in Cervix by Cyto stain Adelaida Carrion [employer] Work Phone: Start: 07-02-2018 ANESTH KNEE AREA SURGERY CHAPARR[facility] HENDRICKS Start: 07-02-2018 REMOVAL OF SUPPORT IMPLANT SUKI EBSANDRA Start: 07-02-2018 TREAT KNEECAP FRACTURE SUKI EBRAHEIM Plan of Treatment Date Care Activity Detail Author Start: 03-23-2033 Screening for malign ant neoplasm of colon [facility] Start: 08-28-2025 Screening for malign ant neoplasm of cervix [facility] Start: 02-15-2025 Medicare Annual Well ness (AWV) Medicare Annual Wellness (AWV) [facility] Start: 09-17-2024 Screening for malign ant neoplasm of breast Mammogram [facility] Start: 06-22-2024 End: 06-22-2024 Patient encounter procedure 06/22/2024 11:20 AM EDT Office Visit [facility] [place] [facility] [address] [place] [phone] Juany Leggett PA [address] [place] [id number] [facility] [place] [facility] Start: 05-24-2024 End: 05-24-2024 Patient encounter procedure 05/24/2024 8:20 AM EST Office Visit [facility] [place] [facility] [address] [place] [phone] Juany Leggett PA [address] [place] [address] [facility] [place] [facility] Start: 05-18-2024 Medicare Annual Well ness (AWV) Medicare Annual Wellness (AWV) [facility] Start: 05-12-2024 End: 05-12-2024 Patient encounter procedure 05/12/2024 10:00 AM EST Office Visit [facility] [address] [place] [address] Adelaida Carrion, BRIANA [address] [place] [phone] [facility] Start: 04-07-2024 End: 04-07-2024 Patient encounter procedure 04/07/2024 12:30 PM EST [facility] [address] [place] [address] [place] [phone] [facility] Start: 04-04-2024 End: 04-04-2024 Patient encounter procedure 04/04/2024 1:20 PM EST Office Visit [facility] [address] [place] [address] Adelaida Carrion, BRIANA [address] [place] [phone] [facility] Start: 03-22-2024 End: 03-22-2024 Clinical Support 03/22/2024 10:00 AM EST Clinical Support [facility] [place] [address] [facility] [place] [facility] Start: 03-16-2024 End: 03-16-2024 Patient encounter procedure [facility] Comment on above: Metabolic encephalop athy (Primary Dx); OSMANY (obstructive sleep apnea); Morbid obesity (CMS/HCC); Bilateral lower extremity edema; Tobacco dependence; Bipolar disorder with severe depression (CMS/HCC); At risk for polypharmacy; Anxiety Start: 03-14-2024 End: 03-14-2024 Patient encounter procedure 03/14/2024 10:00 AM EST [facility] [address] [place] [address] David Foster, PhD [address] [place] [address] [facility] Start: 03-11-2024 End: 03-11-2025 EEG 2 Hour Routine EEG 2 Hour Routine Neurology Routine Altered mental status, unspecified altered mental status type Expected: 03/11/2024 (Approximate), Expires: 03/11/2025 [facility] Work Phone: Comment on above: Expected: 03/11/2024 (Approximate), Expires: 03/11/2025 Start: 03-10-2024 End: 03-10-2024 Patient encounter procedure 03/10/2024 3:40 PM EST Office Visit [facility] [address] [place] [phone] Rachel Mitchell PA [address] [facility] [address] [place], [place] [phone] [facility] Start: 03-01-2024 End: 03-01-2024 Patient encounter procedure 03/01/2024 12:00 PM EST Office Visit [facility] [address] [place] [phone] Juany Leggett PA [address] [place], [place] [phone] [facility] Start: 02-29-2024 End: 02-29-2024 Patient encounter procedure 02/29/2024 2:40 PM EST Office Visit [facility] [place] [facility] [address] [place] [phone] Sonam Brown, [employer] [address] [place] [address] [facility] Start: 02-16-2024 End: 02-15-2025 THIN PREP TIS PAP AND HR HPV DNA THIN PREP TIS PAP AND HR HPV DNA Pathology and Cytology Routine Well woman exam with routine gynecological exam Expected: 02/16/2024 (Approximate), Expires: 02/15/2025 [facility] Work Phone: Comment on above: Expected: 02/16/2024 (Approximate), Expires: 02/15/2025 Start: 02-16-2024 End: 02-16-2024 Patient encounter procedure 02/16/2024 11:30 AM EST Procedure Visit [facility] [address] [place] [phone] Adelaida Carrion NP [address] [place] [address] [facility] Start: 02-04-2024 Influenza vaccination Influenza Vacc ine (#1) [facility] Comment on above: Postponed from 12/05 (Patient Does Not Have Time) Start: 01-28-2024 End: 01-27-2025 URINARY TRACT INFECTION (HTRX) URINARY TRACT INFECTION (HTRX) Lab Routine Acute cystitis without hematuria Expected: 01/28/2024 (Approximate), Expires: 01/27/2025 [facility] Work Phone: Comment on above: Expected: 01/28/2024 (Approximate), Expires: 01/27/2025 Start: 01-28-2024 End: 01-28-2024 Patient encounter procedure [facility] Comment on above: Tobacco dependence ( Primary Dx) Start: 01-04-2024 End: 01-03-2025 Basic metabolic 1998 panel - Serum or Plasma Basic metabolic panel Lab Routine Bilateral lower extremity edema Expected: 01/04/2024 (Approximate), Expires: 01/03/2025 [facility] Work Phone: Comment on above: Expected: 01/04/2024 (Approximate), Expires: 01/03/2025 Start: 01-04-2024 End: 01-04-2024 Patient encounter procedure [facility] Comment on above: Essential (primary) hypertension (CMS/HCC); Allergic rhinitis, unspecified Start: 12-09-2023 End: 12-09-2023 Patient encounter procedure 12/09/2023 10:30 AM EDT Office [facility] [address] [place] [address] Juany Caballero NP [address] [place], [place] [facility] Start: 12-08-2023 End: 12-08-2023 Patient encounter procedure 12/08/2023 3:20 PM EDT Office Visit [facility] [address] [place] [address] Sonam Brown, FIF[employer] GR[employer] TE[employer]ER [address] [place], [place] [phone] [facility] Start: 09-16-2023 Screening for malign ant neoplasm of breast Mammogram [facility] Start: 08-17-2023 End: 08-17-2023 Patient encounter procedure 08/17/2023 9:20 AM EDT Office Visit [facility] [address] [place] [address] Adelaida Carrion, [employer] [address] [place] [address] [facility] Start: 05-22-2023 End: 05-22-2023 Patient encounter procedure 05/22/2023 8:45 AM EST Office Visit [facility] [address] [facility] [address] [place] [address] Ashleigh Hines PA [address] [facility] [address] [place] [address] [facility] Start: 05-18-2023 End: 05-18-2023 Patient encounter procedure 05/18/2023 4:30 PM EST Office Visit [facility] [address] [place] [address] Adelaida Carrion, BRIANA [address] [place] [address] Arrived [facility] Comment on above: Arrived Start: 05-18-2023 End: 05-18-2024 XR Hip - left 3 Views XR hip left 2 or 3 views Imaging Routine Left hip pain Expected: 05/18/2023 (Approximate), Expires: 05/18/2024 [facility] Work Phone: Comment on above: Expected: 05/18/2023 (Approximate), Expires: 05/18/2024 Start: 03-23-2023 [facility] Start: 11-20-2022 [facility] Start: 11-18-2022 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 [facility] Start: 11-17-2022 Hospital admission [facility] Start: 11-17-2022 [facility] Start: 12-06-1991 Screening for malign ant neoplasm of cervix HPV/Cotest [facility] Start: 1960 Medicare Annual Well ness (AWV) Medicare Annual Wellness (AWV) [facility] Start: 1960 Screening for malign ant neoplasm of colon [facility] BLOOD CULTURE 1 BLOOD CULTURE 1 Lab Routine 03/02/2024 3:20 AM EST [facility] Patient Education [facility] Work Phone: Patient referral [facility] Work Phone: [facility] Immunizations Immunization Date Immunization Notes Care Provider Fa cility 01-28-2024 Influenza, injectabl e, Madin Nevaeh Canine Kidney, preservative free, quadrivalent Adelaida Aichholz [employer] Work Phone: [facility] 08-17-2023 zoster vaccine recombinant Adelaida Aichholz [employer] Work Phone: [facility] 02-13-2023 influenza, injectabl e, quadrivalent, preservative free Adelaida Aichholz [employer] Work Phone: [facility] [facility]23 SARS-COV-2 (COVID-19 ) vaccine, mRNA, spike protein, LNP, PF, 50 mcg/0.5 mL Adelaida Aichholz [employer] Work Phone: [facility] 02-13-2023 influenza virus vaccine, unspecified formulation Adelaida Aichholz [employer] Work Phone: [facility] 02-19-2022 diphtheria, tetanus toxoids and pertussis vaccine Adelaida Aichholz [employer] Work Phone: [facility] 03-02-2021 Moderna SARS-CoV-2 Vaccination Adelaida Aichholz [employer] Work Phone: [facility] 08-24-2020 Moderna SARS-CoV-2 Vaccination Adelaida Aichholz [employer] Work Phone: [facility] 07-27-2020 Moderna SARS-CoV-2 Vaccination Adelaida Aichholz [employer] Work Phone: [facility] 05-28-2018 influenza, injectabl e, quadrivalent, preservative free Adelaida Aichholz Work Phone: [facility] 09-01-2018 pneumococcal conjuga te vaccine, 13 valent Adelaida Carrion NP Work Phone: [facility] Payers Date Payer Category Payer Medicare [id number] 2022 Self-pay [id number] 2022 Medicare [id number] 2022 Medicare (Managed Care) [facility] MEDICARE [id number] 2008 Unknown [id number] 1961 Unknown [id number] 2.16.840.1.557233.3.579.2 .647 1961 Unknown [id number] 2.16.840.1.418015.3.579.2 .593 1961 Unknown [id number] 2.16.840.1.870528.3.579.2 .593 1961 Unknown [id number] 2.16.840.1.514058.3.579.2 .593 1961 Unknown [id number] 2.16.840.1.935462.3.579.2 .593 1961 Unknown [id number] 2.16.840.1.351640.3.579.2 .593 1961 Unknown [id number] 2.16.840.1.937478.3.579.2 .593 1961 Unknown [id number] 2.16.840.1.545812.3.579.2 .593 1961 Unknown [id number] 2.16.840.1.985998.3.579.2 .593 1961 Unknown [id number] 2.16.840.1.413560.3.579.2 .593 1961 Unknown [id number] 2.16.840.1.994110.3.579.2 .593 1961 Unknown [id number] 2.16.840.1.537760.3.579.2 .593 1961 Unknown [id number] 2.16.840.1.761465.3.579.2 .593 1961 Unknown [id number] 2.16.840.1.575968.3.579.2 .593 1961 Unknown [id number] 2.16.840.1.677959.3.579.2 .593 1961 Unknown [id number] 2.16.840.1.629762.3.579.2 .593 1961 Unknown [id number] 2.16.840.1.760373.3.579.2 .593 1961 Unknown [id number] 2.16.840.1.029499.3.579.2 .593 1961 Unknown [id number] 2.16.840.1.643141.3.579.2 .593 1961 Unknown [id number] 2.16.840.1.985804.3.579.2 .593 1961 Unknown [id number] 2.16.840.1.503055.3.579.2 .593 1961 Unknown [id number] 2.16.840.1.506206.3.579.2 .593 1961 Unknown [id number] 2.16.840.1.726130.3.579.2 .593 1961 Unknown [id number] 2.16.840.1.763275.3.579.2 .593 1961 Unknown [id number] 2.16.840.1.931569.3.579.2 .593 1961 Unknown [id number] 2.16.840.1.694981.3.579.2 .196 1961 Unknown [id number] 2.16.840.1.641514.3.579.2 .196 1961 Unknown [id number] 2.16.840.1.266815.3.579.2 .1258 1961 Unknown [id number] 2.16.840.1.584037.3.579.2 .1258 1961 Unknown [id number] 2.16.840.1.170970.3.579.2 .125 1961 Unknown [id number] 2.16.840.1.947604.3.579.2 .1258 1961 Unknown [id number] 2.16.840.1.520794.3.579.2 .125 1961 Unknown [id number] 2.16.840.1.756111.3.579.2 .1258 1961 Unknown [id number] 2.16.840.1.291715.3.579.2 .125 1961 Unknown [id number] 2.16.840.1.847276.3.579.2 .1258 1961 Unknown [id number] 2.16.840.1.417370.3.579.2 .1258 1961 Unknown [id number] 2.16.840.1.159558.3.579.2 .1259 1961 Unknown [id number] 2.16.840.1.123344.3.579.2 .1258 1961 Unknown [id number] 2.16.840.1.290683.3.579.2 .9 1961 Unknown [id number] 2.16.840.1.063299.3.579.2 .1258 1961 Unknown [id number] 2.16.840.1.130336.3.579.2 .1258 1961 Unknown [id number] 2.16.840.1.108108.3.579.2 .1258 1961 Unknown [id number] 2.16.840.1.532331.3.579.2 .1258 1961 Unknown [id number] 2.16.840.1.142312.3.579.2 .1258 1961 Unknown [id number] 2.16.840.1.031965.3.579.2 .1258 1961 Unknown [id number] 2.16.840.1.240615.3.579.2 .1258 1961 Unknown [id number] 2.16.840.1.635382.3.579.2 .9 1959 Medicare [id number] 1959 Unknown [id number] Private Health Insurance [facility] [id number] Unknown [id number] 2.16.840.1.846700.3.579.2 .531 Unknown [id number] 2.16.840.1.635055.3.579.2 .531 Social History Date Type Detail Facility Start: 11-18-2022 End: 10-14-2023 Tobacco smoking status NHIS Ex-smoker (finding) [facility] Start: 1960 Sex Assigned At Female [facility] Start: 03-25-2023 End: 08-16-2023 Sex Assigned At [facility] Start: 04-06-1976 End: 04-06-2016 History of tobacco use Current smoker [facility] Start: 04-06-1976 End: 04-06-2016 History of tobacco use Cigarette Smoker [facility] Start: 02-09-2023 End: 08-16-2023 Cigarettes smoked current (pack per day) - Reported 1 [facility] Start: 02-09-2023 End: 10-14-2023 Tobacco use and exposure Smokeless tobacco non-user [facility] Start: 05-18-2023 End: 03-16-2024 Alcohol intake Lifetime non-drinker (finding) [facility] Start: 11-13-2022 Alcohol Comment caffeine intake: 1-2 cups per day. [facility] Start: 10-01-2022 Gender identity Identifies as [...] Functional status Patient at Baseline [facility] Work Phone: Mental Status Date Assessment Result Facility 11-20-2022 Cognitive function Cognitive Sta tus Patient is Progressing Toward Baseline [facility] Work Phone: Clinical Notes 10-03-2021 to 04-12-2024 Telephone Encounter - David Norman MA - 04/12/2024 11:45 AM ESTTelephone Encounter - David Norman MA - 04/12/2024 11:45 AM Munir Foster, PhD - 04/07/2024 12:30 PM EST Note Date & Type Note Facility 04-12-2024 Telephone encounter Note 03/10/2024 Continue Gabapentin 300 mg BID for RLS. Continue clonazepam 0.5mg PO BID for RLS. This was decreased during recent hospitalization Continue Vimpat 50mg PO BID for seizure prevention [facility] 04-12-2024 Miscellaneous Notes 03/10/2024 Continue Gabapentin 300 mg BID for RLS. Continue clonazepam 0.5mg PO BID for RLS. This was decreased during recent hospitalization Continue Vimpat 50mg PO BID for seizure prevention documented in this encounter [facility] 04-07-2024 History of Present illness Narrative Images from the original note were not included. Neuropsychology David Foster, PhD NEUROPSYCHOLOGICAL EVALUATION Michelle Be is a 63 y.o. female referred for neuropsychological evaluation to assist with facilitating and informing medical differential diagnosis and clinical decision-making. The following information was obtained during an interview with the patient, , and daughter (via speaker phone), as well as review of available records. PRESENTING PROBLEM: Decline in memory over the past 13-14 years after being started on Topamax. Also recently hospitalized with altered mental status. Feels she is back to her baseline struggles with cognition which include difficulty focusing while watching television and when attempting to read, forgetting conversations, repeating self, misplacing items around the home, as well as mild word retrieval problems. Despite these concerns, she was a very detailed historian throughout the interview. Remains independent in ADLs and household responsibilities. manages finances as before. has been supervising medication and daughter has become involved as well, establishing a spreadsheet to assist with monitoring patient's overall health status. No driving since earlier this year. Had previously been only driving in town familiar destinations. No exercise. Socially more of a homebody. Remains involved as a classically trained [employer]. Diagnosed with OSMANY and RLS, wears CPAP nightly. Pain complaints include fibromyalgia and degenerative disc disease. Also has prior history of migraines which have resolved over the past 17 years. Neurological history includes small left thalamic stroke in 2016. MoCA 26/30. Patient accurately recalled this screening measure as well as her overall performance and score on it. Admitted to [facility] from the [facility] on 08/24/2023 with acute respiratory failure and confusion thought to be secondary to metabolic encephalopathy. LTME in August 2023 negative. Recently evaluated at [facility] on 03/02/2024 for severe encephalopathy. Brain MRI [...] any history of alcohol/substance abuse. Reformed smoker. [place] language [place]. Reported relocating from [place] to [place] in 2011. Completed a bachelor's degree. 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 Currently on disability. Resides with of 26 years along with her son, grandson, and 2 dogs. Has 2 children from a prior relationship. MEDICAL HISTORY/MEDICATION: MEDICATIONS: Current Outpatient Medications Medication Instructions amLODIPine (NORVASC) 10 mg, Oral, Daily biotin 5 MG tablet Pt taking OTC (Sarsys) Calcium Citrate-Vitamin D (CITRACAL + D PO) Pt taking OTC (Edventures) carvedilol (COREG) 12.5 mg, Oral, 2 times daily with meals cetirizine (ZYRTEC) 10 mg, Oral, Daily clonazePAM (KLONOPIN) 0.5 mg, Oral, 2 times daily DULoxetine (CYMBALTA) 60 mg, 2 times daily fluconazole (Diflucan) 100 MG tablet fluconazole (Diflucan) 150 MG tablet 1 pill every 3 days for a total of 3 doses fluticasone (Flonase) 50 MCG/ACT nasal spray 2 sprays, Each Nostril, Daily gabapentin (NEURONTIN) 300 mg, Oral, 2 times daily, Due 03/11/24 lacosamide (VIMPAT) 50 mg, 2 times daily losartan (COZAAR) 100 mg, Oral, Daily Magnesium 400 MG capsule Pt taking OTCCoSchedule) Melatonin 12 MG tablet 1 tablet, Oral, Nightly Multiple Vitamins-Minerals (BARIATRIC MULTIVITAMINS/IRON PO) Pt taking OTC (Sarsys) nystatin (Mycostatin) 779304 UNIT/GM powder 1 application , 2 times daily nystatin (Mycostatin) cream omeprazole (PRILOSEC) 20 mg, Oral, Daily before breakfast rOPINIRole (REQUIP) 2 mg, Oral, Nightly spironolactone (ALDACTONE) 50 mg, Oral, Daily tiZANidine (ZANAFLEX) 4 mg, Every 8 hours PRN traZODone (DESYREL) 150 mg, Nightly Vraylar 3 MG capsule ASSESSMENT: Presented to appointment on time, alert, and Ox3. Rapport easily established. Good eye contact. Socially appropriate during conversation and testing. Hearing adequate for current purposes. Ambulated independently. Purpose for current evaluation explained and patient agreed to participate. Performance validity testing consistent with good effort. Vision/Visuoconstruction: Binocular near-point visual acuity 20/20. Visual yepez full to confrontation. Visuoconstruction 16th %ile. Nonverbal abstract reasoning 79th %ile. Copy of a complex geometric design >16th %ile. Motor/Speed of Processing: Right-handed. Briquetter Operator strength 16th %ile with right-hand, 38th %ile with left. Speeded graphomotor transcoding 27th %ile. Attention/Working Memory: Auditory attention/working memory 35th %ile (6 digits forward, 4 digits backward, 6 digits during sequencing). Speeded visual scanning/attention 16th %ile. Speeded visual divided attention 46th %ile. Speech/Language: Expressive speech fluent and absent of paraphasic errors. Comprehension adequate for current purposes. Single-word reading 32nd %ile. Generative naming to phonemic cues 7th %ile, 24th %ile to semantic cues. Confrontation naming 34th %ile. Verbal abstract reasoning 14th %ile. Learning and Memory: Learning of a word list 79th %ile (1-50-33-12-12), delayed recall 93rd %ile. Recognition discriminability 93rd %ile. Forced-choice 16/16. Immediate recall for a variety of geometric figures 76th %ile, delayed 58th %ile. Recognition >16th %ile. Executive Functioning: Novel problem-solving and cognitive flexibility >16th %ile, 4/6 categories completed in 64 sorts. Responding absent of significant perseveration. Emotional Functioning: Minimal depression and moderate anxiety. Denied any thoughts of self-harm. FINDINGS AND RECOMMENDATIONS: CONCLUSIONS: 1. Estimated average pre-morbid intellectual functioning. 2. Preserved visual acuity without signs of visual field cut or neglect. 3. Preserved bilateral gross motor function. 4. Minimal depression and moderate anxiety. OPINION: Current neuropsychological evaluation demonstrates well-preserved cognition and memory. In fact, verbal memory measured in the superior range. She demonstrates excellent cognitive reserve for her age. There is no evidence of a neurodegenerative condition or other organic etiology. Findings are completely normal for her age. This appears to be most reflective of a distractibility issue. Presentation is in the context of moderate anxiety and multiple medical issues. Combination of these factors appears to be sapping attentional resources, thereby interfering with optimal memory and cognitive efficiency. RECOMMENDATIONS: Results and recommendations forwarded to treating physician for review during their next appointment. Patient encouraged to contact this office with any additional questions. No activity restrictions from a cognitive standpoint. Memory strategies: Regularly and frequently review information that must be remembered. Link new information in as many ways as possible to already known information. This strategy creates several avenues for remembering the information later. Utilize external memory sources such as lists, date books, calendars, and pocket-size recorders for information that must be remembered. A smartphone is a useful tool in consolidating all this information into one source. Active listening, such as repeating and summarizing information back to presenter when learning important information for future recall may be beneficial as opposed to simply passive listening. Establish a consistent structured routine. Regular physical activity for stress relief, improved cognitive efficiency, and optimal sleep. Attempt new hobbies and skills, keep learning. Proper nutritional intake, such as Mediterranean-style diet, while paying close attention to food sourcing. No need for neuropsychological re-evaluation at this time. Results may be used as a baseline point of comparison should there be concern for future cognitive decline. Thank you for allowing me to participate in the care of this individual. Please contact me with any questions at [phone]. documented in this encounter [facility] 03-16-2024 History of Present illness Narrative Associated Problem(s): Right bundle branch block (RBBB) determined by electrocardiography At this point I will look at her past EKG's, She has had ECHO in past No symptoms, at this time I do not think that further testing is needed Pt is having a memory test done on apr 07 in [place] Pt is anxious and afraid-pt father had dementia Spironolactone pt is asking for 50mg instead of 25mg Images from the original note were not included. Michelle Be is a 63 y.o. female presents with chief complaint of Anxiety HPI: Here for hospital follow up: AMS She was evaluated at [facility], was seen by Neurology reviewed notes from hospitalization This is still an evolving health diagnosis: hx of psych diagnosis, as well as has had a stroke in the past. Upon discharge many of her psych med doses were lowered, and she is also going to be having some neuropscyh testing as well. Father hx of dementia SUBJECTIVE: MEDICATIONS: Current Outpatient Medications Medication Instructions amLODIPine (NORVASC) 10 mg, Oral, Daily biotin 5 MG tablet Pt taking OTC (Sarsys) Calcium Citrate-Vitamin D (CITRACAL + D PO) Pt taking OTC (Edventures) carvedilol (COREG) 12.5 mg, Oral, 2 times daily with meals cetirizine (ZYRTEC) 10 mg, Oral, Daily clonazePAM (KLONOPIN) 0.5 mg, Oral, 2 times daily DULoxetine (CYMBALTA) 60 mg, 2 times daily fluconazole (Diflucan) 100 MG tablet fluconazole (Diflucan) 150 MG tablet 1 pill every 3 days for a total of 3 doses fluticasone (Flonase) 50 MCG/ACT nasal spray 2 sprays, Each Nostril, Daily gabapentin (NEURONTIN) 300 mg, Oral, 2 times daily, Due 03/11/24 lacosamide (VIMPAT) 50 mg, 2 times daily losartan (COZAAR) 100 mg, Oral, Daily Magnesium 400 MG capsule Pt taking OTCCoSchedule) Melatonin 12 MG tablet 1 tablet, Oral, Nightly Multiple Vitamins-Minerals (BARIATRIC MULTIVITAMINS/IRON PO) Pt taking OTC (Sarsys) nystatin (Mycostatin) 940140 UNIT/GM powder 1 application , 2 times daily nystatin (Mycostatin) cream omeprazole (PRILOSEC) 20 mg, Oral, Daily before breakfast rOPINIRole (REQUIP) 2 mg, Oral, Nightly spironolactone (ALDACTONE) 50 mg, Oral, Daily tiZANidine (ZANAFLEX) 4 mg, Every 8 hours PRN traZODone (DESYREL) 150 mg, Nightly Vraylar 3 MG capsule ALLERGIES: Allergies Allergen Reactions Eszopiclone Hallucinations and [...] cough, shortness of breath and wheezing. Cardiovascular: Positive for leg swelling. Negative for chest pain and palpitations. Gastrointestinal: Negative for abdominal pain, blood in stool, constipation, diarrhea, nausea and vomiting. Genitourinary: Negative for difficulty urinating, dysuria and frequency. Musculoskeletal: Negative for arthralgias, back pain, joint swelling and myalgias. Skin: Negative for rash and wound. Neurological: Negative for dizziness, tremors, seizures, syncope and headaches. Memory issues Psychiatric/Behavioral: Positive for behavioral problems. Negative for self-injury and suicidal ideas. The patient is [...] Anxiety 05/18/2023 Bipolar disorder with severe depression ([facility]) 05/18/2023 Brain lesion Brain vascular malformation Chronic pain disorder Closed fracture of patella 02/04/2018 Colon polyps Constipation Degenerative cervical disc Degenerative lumbar disc Depression ([facility]) 05/18/2023 Diastolic dysfunction Dizziness 05/18/2023 Dysphagia Fibromyalgia Fibromyalgia Gastrocnemius equinus GERD (gastroesophageal reflux disease) Heart murmur Hematoma of right breast Hemiparesis ([facility]) Hemiparesis, right ([facility]) Hemorrhoid int/external hemorrhoids Hiatal hernia Iron deficiency Left foot pain 03/25/2023 Lower extremity edema Mood disorder ([facility]) mixed mood disorder OSMANY (obstructive sleep apnea) Osteoporosis ([facility]) Overactive bladder Pre-diabetes Primary hypertension ([facility]) 03/25/2023 PTSD (post-traumatic stress disorder) ([facility]) Restless leg Right knee pain Right sided weakness S/P bariatric surgery Shingles Slurred speech Stroke ([facility]) 2018 Tenosynovitis, de Quervain Thoracic [...] in her mother. OBJECTIVE: Visit Vitals BP 120/80 (BP Location: Left arm, Patient Position: Sitting, BP Cuff Size: Adult long) Pulse 79 Temp 98 F (Temporal) Resp 18 Ht 5' 4 Wt 282 lb SpO2 98% BMI 48.41 kg/m Smoking Status Former BSA 2.4 m Physical Exam Vitals and nursing note [...] Normal range of motion and neck supple. Skin: General: Skin is warm and dry. Capillary Refill: Capillary refill takes 2 to 3 seconds. Findings: No rash. Neurological: General: No focal deficit present. Mental Status: She is alert and oriented to person, place, and time. Psychiatric: Mood and Affect: Mood normal. Behavior: Behavior normal. Thought Content: Thought content normal. Judgment: Judgment normal. ASSESSMENT AND PLAN: Follow up in about 2 months (around 05/17/2024) for Recheck. Problem List Items Addressed This Visit Morbid obesity (CMS/HCC) Discussed with patient their BMI (actual, verses recommended). We have also discussed lifestyle modifications: attempts to perform physical activity as chronic conditions allow, also to monitor dietary intake: increasing protein/fruits/veggies and lowering carb intake (unless contraindicated). Limit sodas, juices, and sugary drinks. Has had bariatric surgeries in the past OSMANY (obstructive sleep apnea) Compliant with PAP RESOLVED: Tobacco dependence Bipolar disorder with severe depression (CMS/HCC) She does follow with psych for mgmt of this Anxiety Under care of psych for this as well Does take benzo At risk for polypharmacy Close monitoring and adjustments and considerations if possible Metabolic encephalopathy - Primary Has had 2-3 hospitalizations this year regarding this as well I have reviewed neurology notes as well Continue to have evaluation Bilateral lower extremity edema Stable with current dose of aldactone, however would like to change the pill to 1 50mg pill instead of 2 25mg pills Relevant Medications spironolactone (Aldactone) 50 MG tablet Primary hypertension (CMS/HCC) Please check blood pressure daily and record DASH diet Limit caffeine Take medication as directed Contact office if chest pain, pressure, dizziness, shortness of breath, swelling legs Recommend slow position changes Current meds: amlodipine, losartan Right bundle branch block (RBBB) determined by electrocardiography At this point I will look at her past EKG's, She has had ECHO in past No symptoms, at this time I do not think that further testing is needed Associated Problem(s): Anxiety Under care of psych for this as well Does take benzo Associated Problem(s): At risk for polypharmacy Close monitoring and adjustments and considerations if possible Associated Problem(s): Bipolar disorder with severe depression (CMS/HCC) She does follow with psych for mgmt of this Associated Problem(s): Morbid obesity (CMS/HCC) Discussed with patient their BMI (actual, verses recommended). We have also discussed lifestyle modifications: attempts to perform physical activity as chronic conditions allow, also to monitor dietary intake: increasing protein/fruits/veggies and lowering carb intake (unless contraindicated). Limit sodas, juices, and sugary drinks. Has had bariatric surgeries in the past Associated Problem(s): Bilateral lower extremity edema Stable with current dose of aldactone, however would like to change the pill to 1 50mg pill instead of 2 25mg pills Associated Problem(s): Primary hypertension (CMS/HCC) Please check blood pressure daily and record DASH diet Limit caffeine Take medication as directed Contact office if chest pain, pressure, dizziness, shortness of breath, swelling legs Recommend slow position changes Current meds: amlodipine, losartan Associated Problem(s): OSMANY (obstructive sleep apnea) Compliant with PAP Associated Problem(s): Metabolic encephalopathy Has had 2-3 hospitalizations this year regarding this as well I have reviewed neurology notes as well Continue to have evaluation documented in this encounter [facility] 03-16-2024 Instructions Adelaida Carrion NP - 03/16/2024 10:00 AM EST Spironolactone: I discontinued the 25mg script for this, sent a new script to [facility], for a 50mg pill, you will take 1 pill daily Memory testing in Apr 2024 Follow up with me in early May, sooner if needed documented in this encounter [facility] 03-16-2024 Telephone encounter Note Yep, sent to [facility]. [facility] 03-16-2024 Miscellaneous Notes Yep, sent to [facility]. Patient calls and states that hospital lowered her requip to 2 mg at bed time. Okay to send as new dosage? documented in this encounter [facility] 03-15-2024 Telephone encounter Note Patient calls and states that hospital lowered her requip to 2 mg at bed time. Okay to send as new dosage? [facility] 03-14-2024 History of Present illness Narrative Images [...] small left thalamic stroke in 2016. MoCA 26/30. Patient accurately recalled this screening measure as well as her overall performance and score on it. Admitted to [facility] from the [facility] on 08/24/2023 with acute respiratory failure and confusion thought to be secondary to metabolic encephalopathy. Previous LTME in August 2023 negative. Recently evaluated at [facility] on 03/02/2024 for severe encephalopathy. Brain MRI [...] any history of alcohol/substance abuse. Reformed smoker. [place] language [place]. Reported relocating from [place] to [place] in 2011. Completed a bachelors degree. Previously [...] pain 03/25/2023 Lower extremity edema Mood disorder ([facility]) mixed mood disorder OSMANY (obstructive sleep apnea) Osteoporosis ([facility]) Overactive bladder Pre-diabetes Primary hypertension ([facility]) 03/25/2023 PTSD (post-traumatic stress disorder) ([facility]) Restless leg Right knee pain Right sided weakness S/P bariatric surgery Shingles Slurred speech Stroke ([facility]) 2018 Tenosynovitis, de Quervain Thoracic back pain, unspecified back pain laterality, unspecified chronicity Tobacco dependence Vertigo, benign paroxysmal Yeast infection of the skin 05/18/2023 MEDICATIONS: Current Outpatient Medications Medication Instructions amLODIPine (NORVASC) 10 mg, Oral, Daily biotin 5 MG tablet Pt taking OTC (Sarsys) Calcium Citrate-Vitamin D (CITRACAL + D PO) Pt taking OTC [facility]) carvedilol (COREG) 12.5 mg, Oral, 2 times [...] Daily Magnesium 400 MG capsule Pt taking OTC(Earnix) Melatonin 12 MG tablet 1 tablet, Oral, Nightly Multiple Vitamins-Minerals (BARIATRIC MULTIVITAMINS/IRON PO) Pt taking OTC (Sarsys) nystatin (Mycostatin) 416355 UNIT/GM powder 1 application , Topical, 2 [...] Please contact me with any questions at [phone]. documented in this encounter [facility] 02-16-2024 History of Present illness [...] biotin 5 MG tablet Pt taking OTC (Sarsys) Calcium Citrate-Vitamin D (CITRACAL + D PO) Pt taking OTC (Edventures) carvedilol (COREG) 12.5 mg, Oral, 2 times [...] Daily Magnesium 400 MG capsule Pt taking OTC([facility]) Melatonin 12 MG tablet 1 tablet, Oral, Nightly Multiple Vitamins-Minerals (BARIATRIC MULTIVITAMINS/IRON PO) Pt taking OTC ([facility]) nystatin (Mycostatin) 725762 UNIT/GM powder 1 application , Topical, 2 [...] Anxiety 05/18/2023 Bipolar disorder with severe depression ([facility]) 05/18/2023 Brain lesion Brain vascular malformation Chronic pain disorder Closed fracture of patella 02/04/2018 Colon polyps Constipation Degenerative cervical disc Degenerative lumbar disc Depression ([facility]) 05/18/2023 Diastolic dysfunction Dizziness 05/18/2023 Dysphagia Fibromyalgia Fibromyalgia Gastrocnemius equinus GERD (gastroesophageal reflux disease) Heart murmur Hematoma of right breast Hemiparesis ([facility]) Hemiparesis, right ([facility]) Hemorrhoid int/external hemorrhoids Hiatal hernia Iron deficiency Left foot pain 03/25/2023 Lower extremity edema Mood disorder ([facility]) mixed mood disorder OSMANY (obstructive sleep apnea) Osteoporosis ([facility]) Overactive bladder Pre-diabetes Primary hypertension ([facility]) 03/25/2023 PTSD (post-traumatic stress disorder) ([facility]) Restless leg Right knee pain Right sided weakness S/P bariatric surgery Shingles Slurred speech Stroke ([facility]) 2018 Tenosynovitis, de Quervain Thoracic [...] nursing note reviewed. Exam conducted with a political advisor present. Constitutional: General: She is not in [...] chronic conditions allow documented in this encounter [facility] 01-28-2024 History of Present illness [...] ER fu for UTI and dehydration. See [facility] for HPI Was sent home on Bactrim. Feels completely fine now, no fever, chills, malodorous urine, no constipation diarrhea or abd pain SUBJECTIVE: MEDICATIONS: Current Outpatient Medications Medication Instructions amLODIPine (NORVASC) 10 mg, Oral, Daily biotin 5 MG tablet Pt taking OTC (Sarsys) Calcium Citrate-Vitamin D (CITRACAL + D PO) Pt taking OTC ([employer]) carvedilol (COREG) 12.5 mg, Oral, 2 times [...] Daily Magnesium 400 MG capsule Pt taking OTC(Earnix) Melatonin 12 MG tablet 1 tablet, Oral, Nightly Multiple Vitamins-Minerals (BARIATRIC MULTIVITAMINS/IRON PO) Pt taking OTC (Sarsys) nystatin (Mycostatin) [id number] UNIT/GM powder 1 application , Topical, 2 [...] Anxiety 05/18/2023 Bipolar disorder with severe depression ([facility]) 05/18/2023 Brain lesion Brain vascular malformation Chronic pain disorder Closed fracture of patella 02/04/2018 Colon polyps Constipation Degenerative cervical disc Degenerative lumbar disc Depression (CMS/HCC) 05/18/2023 Diastolic dysfunction Dizziness 05/18/2023 Dysphagia Fibromyalgia Fibromyalgia Gastrocnemius equinus GERD (gastroesophageal reflux disease) Heart murmur Hematoma of right breast Hemiparesis ([facility]) Hemiparesis, right ([facility]) Hemorrhoid int/external hemorrhoids Hiatal hernia Iron deficiency Left foot pain 03/25/2023 Lower extremity edema Mood disorder ([facility]) mixed mood disorder OSMANY (obstructive sleep apnea) Osteoporosis ([facility]) Overactive bladder Pre-diabetes Primary hypertension ([facility]) 03/25/2023 PTSD (post-traumatic stress disorder) ([facility]) Restless leg Right knee pain Right sided weakness S/P bariatric surgery Shingles Slurred speech Stroke ([facility]) 2018 Tenosynovitis, de Quervain Thoracic [...] of the risks of continued smoking: stroke, MT, all forms of cancer, lung disease, and [...] Relevant Orders Flu vaccine, MDCK, quadrivalent, PF ([id number]) (Flucelvax single dose syringe) Associated Problem(s): Tobacco dependence The patient has been advised of the risks of continued smoking: stroke, MT, all forms of cancer, lung disease, and . Options for quitting smoking include: cold turkey, hypnosis, acupuncture, nicotine replacement meds (gum, lozenges, and patches), Buproprion, and Varenicline. At this time pt is encouraged to evaluate their goals for wanting to quit smoking, and reach out to provider when ready to start this process documented in this encounter [facility] 01-04-2024 History of Present illness Narrative Associated Problem(s): Bilateral lower extremity edema Stable with current dose of aldactone We will order a chem 8 today Fu in 3 months Associated Problem(s): Primary hypertension (CMS/HCC) At goal today, no med dose changes Associated Problem(s): OSMANY (obstructive sleep apnea) Compliant with PAP Finds its use beneficial Tomorrow- test injections in her back. Pt is here for labs Pt states that since starting the spironolactone her leg edema has been controlled. Images from the original note were not included. Michelle Be is a 63 y.o. female presents with chief complaint of No chief complaint on file. HPI: OSMANY: is wearing PAP at least 6 hours per night, feeling good with this as well. Edema Presents with chronic edema. The current episode started more than 1 year ago. The onset of the episode was gradual. These episodes happen throughout the day. The problem presents itself daily. The problem has been gradually improving. The edema is present on the both side(s). Risk factors for edema include no known risk factors. Associated agents include calcium channel blockers. Pertinent negative symptoms include no abdominal pain, no chest pain, no cough, no decreased urine volume, no fever, no nausea, no palpitations, no PND and no vomiting. Treatments tried include diuretics. There has been significant improvement on treatment(s). Hypertension This is a chronic problem. The problem has been gradually improving since onset. The problem is controlled. Pertinent negatives include no chest pain, headaches, palpitations, PND or shortness of breath. There are no associated agents to hypertension. Risk factors for coronary artery disease include obesity, dyslipidemia and sedentary lifestyle. Past treatments include angiotensin blockers, calcium channel blockers, beta blockers and diuretics. The current treatment provides significant improvement. There are no compliance problems. There is no history of CAD/MT, heart failure or PVD. Identifiable causes of hypertension include sleep apnea. SUBJECTIVE: MEDICATIONS: Current Outpatient Medications Medication Instructions amLODIPine (NORVASC) 10 mg, Oral, Daily biotin 5 MG tablet Pt taking OTC (Sarsys) Calcium Citrate-Vitamin D (CITRACAL + D PO) Pt taking OTC ([facility]) carvedilol (COREG) 12.5 mg, Oral, 2 times [...] Daily Magnesium 400 MG capsule Pt taking OTC(Earnix) Melatonin 12 MG tablet 1 tablet, Oral, Nightly Multiple Vitamins-Minerals (BARIATRIC MULTIVITAMINS/IRON PO) Pt taking OTC (Sarsys) nystatin (Mycostatin) [id number] UNIT/GM powder 1 application , Topical, 2 times daily omeprazole (PRILOSEC) 20 mg, Oral, Daily before breakfast rOPINIRole (REQUIP) 4 mg, Oral, Nightly spironolactone (ALDACTONE) 50 mg, Oral, Daily tiZANidine (ZANAFLEX) 4 mg, Oral, Every 8 [...] and wheezing. Cardiovascular: Negative for chest pain, palpitations, leg swelling and PND. Gastrointestinal: Negative for abdominal pain, blood in stool, constipation, diarrhea, nausea and vomiting. Genitourinary: Negative for decreased urine volume, difficulty urinating, dysuria and frequency. Musculoskeletal: Positive [...] Anxiety 05/18/2023 Bipolar disorder with severe depression ([facility]) 05/18/2023 Brain lesion Brain vascular malformation Chronic pain disorder Closed fracture of patella 02/04/2018 Colon polyps Constipation Degenerative cervical disc Degenerative lumbar disc Depression ([facility]) 05/18/2023 Diastolic dysfunction Dizziness 05/18/2023 Dysphagia Fibromyalgia Fibromyalgia Gastrocnemius equinus GERD (gastroesophageal reflux disease) Heart murmur Hematoma of right breast Hemiparesis ([facility]) Hemiparesis, right ([facility]) Hemorrhoid int/external hemorrhoids Hiatal hernia Iron deficiency Left foot pain 03/25/2023 Lower extremity edema Mood disorder ([facility]) mixed mood disorder OSMANY (obstructive sleep apnea) Osteoporosis ([facility]) Overactive bladder Pre-diabetes Primary hypertension ([facility]) 03/25/2023 PTSD (post-traumatic stress disorder) ([facility]) Restless leg Right knee pain Right sided weakness S/P bariatric surgery Shingles Slurred speech Stroke (CMS/HCC) 2018 Tenosynovitis, de Quervain Thoracic back pain, [...] in her mother. OBJECTIVE: Visit Vitals BP 116/78 (BP Location: Left arm, Patient Position: Sitting, BP Cuff Size: Adult long) Pulse 67 Temp 97.8 F (Temporal) Resp 19 Ht 5' 4 Wt 284 lb SpO2 99% BMI 48.75 kg/m Smoking Status Former BSA 2.41 m [...] Normal breath sounds. No wheezing or rales. Musculoskeletal: General: Normal range of motion. Cervical back: Normal range of motion and neck supple. Skin: General: Skin is warm and [...] This Visit Primary hypertension (CMS/HCC) At goal today, no med dose changes Morbid obesity (CMS/HCC) OSMANY (obstructive sleep apnea) Compliant with PAP Finds its use beneficial Bilateral lower extremity edema - Primary Stable with current dose of aldactone We will order a chem 8 today Fu in 3 months Relevant Orders Basic metabolic panel Other Visit Diagnoses Essential (primary) hypertension (CMS/HCC) Relevant Medications amLODIPine (Norvasc) 10 MG tablet carvedilol (Coreg) 12.5 MG tablet losartan (Cozaar) 100 MG tablet Allergic rhinitis, unspecified Relevant Medications cetirizine (ZyrTEC) 10 MG tablet fluticasone (Flonase) 50 MCG/ACT nasal spray documented in this encounter [facility] 12-09-2023 History of Present illness Narrative Images from the original note were not included. Chief Complaint Patient presents with Sleep Apnea Patient is here today for follow-up of OSMANY. I am following the plan of care established by the physician Dr. Suarez who is present in the office today and supervising patient care. Subjective Michelle Be, 63 y.o., female, is here today for a follow up for her new PAP machine. She is normally seen at the [facility] and was last seen on 06/24/2023. She received her new PAP machine. She wears it every night. She states she will still get up a few times throughout the night to go to the bathroom, watch tv, or let the dogs out. She does feel like she has more energy. She does have a hard time waking up in the mornings. She averages around 6 hours of broken sleep per night. Past Medical History: Diagnosis Date Abnormal mammogram of left breast Achilles tendinitis, right leg Acute gout of right foot, unspecified cause Allergic rhinitis 05/18/2023 Anemia Anxiety 05/18/2023 Bipolar disorder with severe depression ([facility]) 05/18/2023 Brain lesion Brain vascular malformation Chronic pain disorder Closed fracture of patella 02/04/2018 Colon polyps Constipation Degenerative cervical disc Degenerative lumbar disc Depression (CMS/HCC) 05/18/2023 Diastolic dysfunction Dizziness 05/18/2023 Dysphagia Fibromyalgia Fibromyalgia Gastrocnemius equinus GERD (gastroesophageal reflux disease) Heart murmur Hematoma of right breast Hemiparesis ([facility]) Hemiparesis, right ([facility]) Hemorrhoid int/external hemorrhoids Hiatal hernia Iron deficiency Left foot pain 03/25/2023 Lower extremity edema Mood disorder ([facility]) mixed mood disorder OSMANY (obstructive sleep apnea) Osteoporosis ([facility]) Overactive bladder Pre-diabetes Primary hypertension ([facility]) 03/25/2023 PTSD (post-traumatic stress disorder) ([facility]) Restless leg Right knee pain Right sided weakness S/P bariatric surgery Shingles Slurred speech Stroke ([facility]) 2018 Tenosynovitis, de Quervain Thoracic [...] SURGERY Left 10/31/2022 1ST DORSAL COMPARTMENT RELEASE Family History Problem Relation Name Age of Onset Diabetes Mother Other (Spinal Meningitis) Mother Kidney failure Mother Hyperlipidemia Father Arthritis Father Hypertension Father Dementia Father Heart disease Father Diabetes Maternal Grandmother Social History Tobacco Use Smoking status: Former Current packs/day: 0.00 Average packs/day: 1 pack/day for 40.0 years (40.0 ttl pk-yrs) Types: Cigarettes Start date: 1976 Quit date: 2017 Years since quittin.6 Smokeless tobacco: Never Substance Use Topics Alcohol use: Never Comment: caffeine intake: 1-2 cups per day. Allergies: Lunesta [eszopiclone], Penicillins, Tetracycline, Levetiracetam, Milnacipran, Prochlorperazine, Wound dressing adhesive, and Other General: No fever or chills HEENT: No nasal congestion or runny nose Pulmonary: No shortness of breath or cough Cardiovascular: No chest pain or palpitations GI: No nausea or vomiting : No dysuria or hematuria Musculoskeletal: No new aches or pains or muscle weakness Infectious: no recurrent fevers or infections Dermatologic: No rashes or skin lesions Neurologic: No new headaches or dizziness Vitals: 12/09/23 1014 BP: 122/78 SpO2: 97% Body mass index is 48.92 kg/m . weight: 285 lb Neurologic exam: General: Normal body habitus, cooperative, pleasant Mental status: Awake, alert to person, place and time. Recent and remote memory are intact. Attention and concentration are normal. Fund of knowledge is appropriate for level of education. HEENT: NC/AT Cranial nerves: CN II: Visual yepez full to confrontation. No loss of vision CN III, IV, : pupils equal round and reactive to light. Extraocular movements intact. No ptosis present. CN V: Facial sensation is normal. CN VII: Full and symmetric facial movement. CN VIII: Hearing is normal CN IX and X: Palate elevates symmetrically. CN XI: Shoulder shrug is normal bilaterally. CN XII: Tongue is midline without atrophy or fasciculation. Speech: Clear and fluent no aphasia or dysarthria, slight slurring Pronator drift: Negative bilateral upper extremity Coordination: Intact, no signs of dysmetria Good finger to nose and rapid alternating movements Sensory: Sensation is intact to light touch throughout four extremities. Motor: LUE 5/5 RUE 5/5 LLE 5/5 RLE 5/5 Tone: Physiologic, no tremor, bradykinesia or rigidity DTR: Bilateral Biceps x Bilateral BR x Bilateral Patellar x No spasticity Gait: Normal to casual gait Romberg's x Review and summary of old records: Assessment/Plan Diagnoses and all orders for this visit: OSMANY (obstructive sleep apnea) Restless leg 63-year-old female with a moderate obstructive sleep apnea with a severe hypoxia leading to daytime hypersomnolence and snoring. Her underlying obesity, despite bariatric surgery, certainly contributes to this. She has some sleep maintenance and onset insomnia along with RLS for which she uses multiple medications prescribed by other providers. She is on trazodone Klonopin and Requip. She has failed Ambien. She is also on zanaflex, gabapentin and melatonin. She was last seen in the [facility] on June 24, 2023. Since that time she has received a new machine. She has no issues issues with her mask or machine. 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 Although, she has not worked in 12 years she has not been able to sleep well. Her bedtime and wake time can vary by a few hours. When she does wake in the night she will go to the bathroom, let the dogs out, and watch TV. She was counseled she needs to go directly back to bed and not turn the TV on. She does self medicate with marijuana. Studies show that marijuana is best for short term insomnia and not for mcc insomnia. She is compliant on her download ending December 01, 2023. She put the mask on greater than 4 hours 97 percent of the days with a nightly average usage 5 hours 36 minutes, residual AHI 1.2. She is benefiting as she is having more energy. When she gets up in the morning she is achy and she needs a cup of coffee and then she feels more rested. . . . Plan Reviewed compliance download Compliance download at next visit Work on sleep schedule Work on sleep routine, do not watch TV in the night The patient was counseled on the risks of stroke, MT, and sudden with OSMANY, along with the need for compliance with the CPAP/BiPAP treatment. The patient was counseled on proper sleep hygiene and adequate hours of sleep. Continue with sleep medications ordered through other providers May need to increase klonopin further or trial dayvigo pending course We will send in for supplies and see her in one year as we do not prescribe her any meds for her sleep at this time The patient was counseled on the need for aggressive diet, exercise, and weight loss. The diagnosis was all discussed with the patient. All questions were answered and they agreed with the treatment plan. Patient will call if there are any new issues or questions. Return to clinic: one year documented in this encounter [facility] 12-08-2023 History of Present illness Narrative Patient is here today for follow-up of OSMANY. I am following the plan of care established by the physician who is present in the office today. Subjective No chief complaint on file. Past Medical History: Diagnosis Date Abnormal mammogram of left breast Achilles tendinitis, right leg Acute gout of right foot, unspecified cause Allergic rhinitis 05/18/2023 Anemia Anxiety 05/18/2023 Bipolar disorder with severe depression ([facility]) 05/18/2023 Brain lesion Brain vascular malformation Chronic pain disorder Closed fracture of patella 02/04/2018 Colon polyps Constipation Degenerative cervical disc Degenerative lumbar disc Depression ([facility]) 05/18/2023 Diastolic dysfunction Dizziness 05/18/2023 Dysphagia Fibromyalgia Fibromyalgia Gastrocnemius equinus GERD (gastroesophageal reflux disease) Heart murmur Hematoma of right breast Hemiparesis ([facility]) Hemiparesis, right ([facility]) Hemorrhoid int/external hemorrhoids Hiatal hernia Iron deficiency Left foot pain 03/25/2023 Lower extremity edema Mood disorder ([facility]) mixed mood disorder OSMANY (obstructive sleep apnea) Osteoporosis ([facility]) Overactive bladder Pre-diabetes Primary hypertension ([facility]) 03/25/2023 PTSD (post-traumatic stress disorder) ([facility]) Restless leg Right knee pain Right sided weakness S/P bariatric surgery Shingles Slurred speech Stroke ([facility]) 2018 Tenosynovitis, de Quervain Thoracic [...] SURGERY Left 10/31/2022 1ST DORSAL COMPARTMENT RELEASE Family History Problem Relation Name Age of Onset Diabetes Mother Other (Spinal Meningitis) Mother Kidney failure Mother Hyperlipidemia Father Arthritis Father Hypertension Father Dementia Father Heart disease Father Diabetes Maternal Grandmother Social History Tobacco Use Smoking status: Former Current packs/day: 0.00 Average packs/day: 1 pack/day for 40.0 years (40.0 ttl pk-yrs) Types: Cigarettes Start date: 1976 Quit date: 2017 Years since quittin.6 Smokeless tobacco: Never Substance Use Topics Alcohol use: Never Comment: caffeine intake: 1-2 cups per day. Medication Documentation Review Audit Reviewed by Festus Baron MA ([employer]airer) on 12/08/23 at 1525 Medication Order Taking? Sig Documenting Provider Last Dose Status amLODIPine (Norvasc) 10 MG tablet [id number] Take 1 tablet (10 mg) by mouth Daily Adelaida Carrion NP Active biotin 5 MG tablet [id number] Pt taking OTC (amazon) Historical ProviderMD Active Calcium Citrate-Vitamin D (CITRACAL + D PO) [id number] Pt taking OTC ([facility]) Historical ProviderMD Active Cariprazine HCl (Vraylar) 4.5 MG capsule [id number] Take 4.5 mg by mouth Daily Active carvedilol (Coreg) 12.5 MG tablet [id number] Take 1 tablet (12.5 mg) by mouth in the morning and 1 tablet (12.5 mg) in the evening. Take with meals. Adelaida Carrion NP Active cetirizine (ZyrTEC) 10 MG tablet [id number] Take 1 tablet (10 mg) by mouth Daily Adelaida Carrion NP Active clonazePAM (KlonoPIN) 1 MG tablet [id number] Take 1 tablet (1 mg) by mouth 2 (two) times a day as needed for anxiety Do not start before October 16, 2023. Sonam Brown NP 11/15/23 235 DULoxetine (Cymbalta) [address] capsule [id number] Take 60 mg by mouth in the morning and 60 mg before bedtime. Do not crush or chew.. Active fluconazole (Diflucan) 150 MG tablet [id number] 1 pill every 3 days for a total of 3 doses Adelaida Carrion NP Active fluticasone (Flonase) 50 MCG/ACT nasal spray [id number] Administer 2 sprays into each nostril Daily Adelaida Carrion NP 11/04/23 235 gabapentin (Neurontin) 300 MG capsule [id number] Take 1 capsule (300 mg) by mouth in the morning and 1 capsule (300 mg) before bedtime. Sonam Brown NP Active losartan (Cozaar) 100 MG tablet [id number] Take 1 tablet (100 mg) by mouth Daily Adelaida Carrion NP Active Magnesium 400 MG capsule [id number] Pt taking OTC([facility]) Historical ProviderMD Active Melatonin 12 MG tablet [id number] Take 1 tablet by mouth at bedtime Active Multiple Vitamins-Minerals (BARIATRIC MULTIVITAMINS/IRON PO) [id number] Pt taking OTC ([facility]) Historical ProviderMD Active nystatin (Mycostatin) 270572 UNIT/GM powder [id number] Apply 1 application topically in the morning and 1 application before bedtime. Adelaida Carrion NP Active omeprazole (PriLOSEC) [address] capsule [id number] Take 1 capsule (20 mg) by mouth in the morning. Take before meals. Adelaida Carrion NP Active rOPINIRole (Requip) 4 MG tablet [id number] Take 1 tablet (4 mg) by mouth at bedtime Sonam Brown NP Active spironolactone (Aldactone) 25 MG tablet [id number] Take 2 tablets (50 mg) by mouth Daily Adelaidamonse Carrion NP Active tiZANidine (Zanaflex) 2 MG tablet [id number] Take 2 mg by mouth every 8 (eight) hours Adelaida Carrion NP Active traZODone (Desyrel) 150 MG tablet [id number] Take 150 mg by mouth at bedtime Active HPI AMS -Patient was admitted to [facility] from the [facility] on 08/24/2023 with acute respiratory failure and confusion thought to be secondary to metabolic encephalopathy. Patient denies any new hospital stays. -She was seen by Neurology who thought she had a toxic encephalopathy secondary to medication overuse. -She was monitored on LTME which did not show any evidence of seizures. -After she was discharged she had a short stay at the shelter facility on 09/03/2023 and she was discharged home on 09/15/2023. -She is having memory issues, more short term. States it is about the same. -She states there are things that she cannot remember at all. -She states there are times when she can forget things within a few minutes. -She does think her memory has improved a little bit since being intubated in August 2023. Patient denies this statement. -She has had memory problems for years. -She states the damage was on her creative side but she has not noticed much of a difference besides with sewing. In 2015 she had slurred speech and right side weakness and was diagnosed with a stroke. -She does report that she had some recrudescence of the dame symptoms when she was hospitalized in August. She feels back to baseline with the exception of persistent memory issues, more short term. 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 When she stopped the Topamax her memory improved but never returned to normal. -She states there are things that she cannot remember at all such as events she has done, what she is watching on TV, appointments. -She states the damage was on her creative side but she has not noticed much of a difference besides with sewing. She has not been sewing due to the sewing machine being in the baby room she states. ROS Review of Systems Objective Visit Vitals BP 134/77 Pulse 72 Ht 5' 4 Wt 285 lb BMI 48.92 kg/m Smoking Status Former BSA 2.41 m GENERAL Apical RRR, no murmur LS CTA throughout Carotid - no bruit Abdomen soft, BS normal Neurological Exam Mental Status Awake and alert. Oriented only to person, place and time. Recent and remote memory are intact. Speech is normal. Speech: May be slightly slurred. Language is fluent with no aphasia. Attention and concentration are normal. Fund of knowledge is appropriate for level of education. Cranial Nerves CN II: Visual acuity is normal. Visual yepez full to confrontation. CN III, IV, : Extraocular movements intact bilaterally. Normal lids and orbits bilaterally. Pupils equal round and reactive to light bilaterally. CN V: Facial sensation is normal. CN VII: Full and symmetric facial movement. CN VIII: Hearing is normal. CN IX, X: Palate elevates symmetrically. Normal gag reflex. CN XI: Shoulder shrug strength is normal. CN XII: Tongue midline without atrophy or fasciculations. Sensory Light touch is normal in upper and lower extremities. Temperature is normal in upper and lower extremities. Vibration abnormality: Decreased at the ankle and great toe bilaterally. Coordination Right: Bvofau-ge-vcox normal. Rapid alternating movement normal.Left: Rwcwml-fq-jvnp normal. Rapid alternating movement normal. Gait Casual gait is normal including stance, stride, and arm swing. Motor Examination RUE Strength deltoid, biceps, triceps, wrist extensors, wrist extensors, wrist flexor, security analyst strength 5/5. LUE Strength deltoid, biceps, triceps, wrist extensors, wrist extensors, wrist flexor, security analyst strength 5/5. RLE Strength illopsoas, quadriceps, tibialis anterior, and gastrocnemius strength 5/5. LLE Strength illopsoas, quadriceps, tibialis anterior, and gastrocnemius strength 5/5. Tone Normal tone x4 extremities. Reflexes: RUE biceps reflex 2, brachioradialis reflex 2 LUE biceps reflex 2, brachioradialis reflex 2 RLE knee reflex 2, LLE knee reflex 2, Assessment and Plan 1. AMS - 63-year-old female who was seen in outpatient Neurological consultation at the request of Adelaida Carrion NP for encephalopathy. Medical history includes primary hypertension, cervical spondylosis, stroke, restless legs syndrome, obstructive sleep apnea, brain vascular malformation, GERD, bariatric surgery, fibromyalgia, degenerative spine disease, prediabetes, vertigo, PTSD, mood disorder, depression, bipolar disorder, anxiety, and brain vascular malformation. This list is not all inclusive. Patient was admitted to [facility] from the [facility] on 08/24/2023 with acute respiratory failure and confusion thought to be secondary to metabolic encephalopathy. She states she is improving from a cognitive standpoint but not back to her baseline. We can consider neuropsychological testing if she does not continue to improve. She denies further confusion 2. Small left thalamic lesion -lesion that is thought to represent a small chronic ischemic stroke. I believe her right facial and upper extremity weakness to be related to that thalamic lesion, as is the dysarthria. I am less suspicious that the lesion represents a vascular malformation though this was a consideration at one point. Especially in terms of her dysarthria, she notices a fatigability to her symptoms. She she does report she has reoccurrence of these symptoms when she was hospitalized in August but is back to her baseline. Denies further focal neurological symptoms 3. She has chronic carpal tunnel syndrome - Right. - Stable 4. Status post bariatric surgery, Scott-en-Y, October 2019 5. 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 Nixon 6. RLS on gabapentin and ropinirole and clonazepam, mostly at night but sometimes in the day. Mostly controlled well. 7. OSMANY - Original AHI was 5. She has a CPAP that she wears every night. She is doing much better and feels more rested. Compliance for November. She wears her CPAP every night. Usage average up 14%. Averages almost 6 hours a night. Seal improved dramatically. Events down 20.9%. Events down to 1/hr. According to smart watch data lowest pulse ox was 88%. ___ Evaluation in August 24, 2023: 1. CT scan of the head nonacute 2. CTA of the head and neck was negative for occlusive disease 3. MRI scan of the brain showed chronic changes. No acute intracranial pathology 4. LTME was negative for seizure Prior Evaluation: 5. EMG bilateral upper extremities in 2019 showed median neuropathy distal to the wrist such as carpal tunnel syndrome which was minimal in degree on the right. 6. MRI scan of the brain in July 2019 showed davx-fv-mtsaxxon white matter changes with the largest area in the left thalamus. Subacute to chronic small-vessel ischemic changes are favored. No acute infarct. MRI scan of the brain in October 2018 showed a small area of subtle enhancement within the left basal ganglia without visible mass or mass effect. Small arteriovenous/vascular malformation not completely excluded. No visible feeding or draining vessels. Stable appearance of a few small T2 hyperintensities in the deep white matter possibly due to chronic migraine, demyelinating, chronic small-vessel changes. Diagnoses and all orders for this visit: 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CMS/HCC) Restless leg Metabolic encephalopathy PLAN: 1. Continue Gabapentin 300 mg BID. Decreased from 600mg during hospitalization 2. Continue Ropinirole 4 mg nightly (Mirapex did not work) 3. Takes iron supplement twice daily (this corrected her iron studies) 4. Continue clonazepam 1 mg BID for RLS 5. Not on aspirin, avoiding NSAIDS after gastric bypass 6. Consider cognitive evaluation based on her clinical course 7. I will see the patient back in 3-4 months, or sooner if needed, to make further recommendations documented in this encounter [facility] 05-18-2023 History of Present illness [...] (BARIATRIC MULTIVITAMINS/IRON PO) Bariatric Multivitamins/Iron nystatin (Mycostatin) 464460 UNIT/GM powder 1 application , Topical, 2 [...] Anxiety 05/18/2023 Bipolar disorder with severe depression ([facility]) 05/18/2023 Brain vascular malformation Chronic pain disorder Colon polyps Constipation Degenerative cervical disc Degenerative lumbar disc Depression ([facility]) 05/18/2023 Diastolic dysfunction Dizziness 05/18/2023 Dysphagia Fibromyalgia Gastrocnemius equinus GERD (gastroesophageal reflux disease) Heart murmur Hematoma of right breast Hemiparesis, right ([facility]) Hemorrhoid int/external hemorrhoids Hiatal hernia Iron deficiency Left foot pain 03/25/2023 Lower extremity edema Mood disorder ([facility]) mixed mood disorder OSMANY (obstructive sleep apnea) Osteoporosis ([facility]) Overactive bladder Pre-diabetes Primary hypertension ([facility]) 03/25/2023 PTSD (post-traumatic stress disorder) ([facility]) Restless leg Right knee pain Right sided weakness S/P bariatric surgery Shingles Slurred speech Stroke ([facility]) 2018 Tenosynovitis, de Quervain Thoracic [...] yearly and prn documented in this encounter [facility] 03-23-2023 Procedure note [facility] 12-19-2022 Evaluation note Encounter Date Diagnosis Assessment Notes Dec, Skin candidiasis (ICD-10 - B37.2) Drink plenty fluids, get plenty of rest. Continue home medications as prescribed. Take the Diflucan as prescribed until gone. Follow-up with your family physician if no improvement in 2 to 3 days [facility] Other 08-17-2023 Discharge summary Author Eduardo bautista [facility] November 20, 2022 6:38am Note Date/Time November 20, 2022 6: 38am [facility] [address] [place] [address] Discharge Summary Signed Patient: Michelle Be MR#: [id number] : 1960 Acct:[id number] Age/Sex: 61 / F Adm Date: 3 Loc: 1S Room: [address] [place] [address]: Gaudencio Monk MD Copies to: MD Adelaida Álvarez, [employer] TEACHER-C~ Providers Date of Discharge: 11/20/22 Discharging Provider: [...] time.? She reports moving to [place] from [place] in 2011 and was then diagnosed with bipolar disorder at [facility] in [place], where she still follows with a therapist.? Shereports that she has been with 7 therapists in the last 9 years and is currentlycompleting EMDR with her current therapist. Past hospitalizations: Her most recent hospitalization was 5 years ago [facility] in [place] for the same feeling she is experiencing [...] worked since 2010 due to her fibromyalgia.? [facility]. 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 (insert date/time [...] Monk MD> 11/20/22 0638 [facility] Work Phone: 1(332) 276-539908-16-2023 Progress note Author Eduardo bautista [facility] November 19, 2022 6:25am Note Date/Time November 19, 2022 6: 25am [facility] [address] [place] [address] Psychiatry Progress Note Signed Patient: Michelle Be MR#: [id number] : 1960 Acct:[id number] Age/Sex: 61 / F Adm Date: 3 Loc: Room: [address] [place] [address] Type : ADM IN Attending Dr: Gaudencio [...] signed by Eduardo Monk MD> 11/19/22 06 [facility] Work Phone: 1(567) 381-606208-15-2023 Progress note Author Eduardo bautista [facility] November 18, 2022 11:01am Note Date/Time November 18, 2022 10 :11am [facility] [address] [place] [address] Psychiatry Progress Note Signed Patient: Michelle Be MR#: [id number] : 1960 Acct:[id number] Age/Sex: 61 / F Adm Date: 3 Loc: Room: 4I1076-2 Type : ADM IN Attending Dr: Gaudencio [...] by requesting a schedule 2 referring to [facility] for pain management specifically every 4-6 hours [...] signed by MD DA Rangel> 11/18/22 1011 [facility] Work Phone: 1(750) 656-687908-14-2023 History and physical note Author Eduardo bautista [facility] November 17, 2022 12:48pm Note Date/Time November 17, 2022 12 :48pm [facility] [address] [place] [address] Psychiatry H&P Signed Patient: Michelle Be MR#: [id number] : 1960 Acct:[id number] Age/Sex: 61 / F Adm Date: 3 Loc: Room: [address] [place] [address] Type: ADM IN Attending Dr: Gaudencio Monk [...] time. She reports moving to [place] from [place] in 2011 and was then diagnosed with bipolar disorder at [facility] in [place], where she still follows with a therapist. Shereports that she has been with 7 therapists in the last 9 years and is currentlycompleting EMDR with her current therapist. Past hospitalizations: Her most recent hospitalization was 5 years ago [facility] in [place] for the same feeling she is experiencing [...] worked since 2010 due to her fibromyalgia. [facility]. Relationships: Reports having [...] equal bilaterally. CN XII: Tongue protrusion midline [facility] Medical History (Updated 11/17/22 @ 10:42 by [...] signed by Eduardo Monk MD> 11/17/22 1248 [facility] Work Phone: 1(587) 719-452203-23-2023 NoteCONSULTATION CONSULTATION DATE: 06/26/2022 To: Nurse Carrion [...] joint injection under fluoroscopic guidance.[facility] [id number] NotePROCEDURE: XR SHOULDER RT 2V or > [...] Electronically authenticated by: KINGSLEY CLEMENTS Date: 2022-05-09 09:21[facility]01-23-2023 NotePROCEDURE: XR WRIST LT MIN [...] Electronically authenticated by: KINGSLEY CLEMENTS Date: 2022-04-28 13:31[facility]12-29-2022 NoteCONSULTATION CONSULTATION DATE: 04/03/2022 HISTORY [...] three months, unless otherwise indicated.[facility] [id number] NoteCONSULTATION CONSULTATION DATE: 01/02/2022 This is a [...] prescription was sent by Dr. Macedo to [facility] in [place] for the compounded cream. She needs a [...] months' time unless otherwise indicated.[facility] [id number] NotePROCEDURE: XR ANKLE RT MIN 3 VIEWS, [...] Electronically authenticated by: KINGSLEY CLEMENTS Date: 2022-01-01 13:11[facility]09-28-2022 NotePROCEDURE: XR ANKLE RT MIN [...] Electronically authenticated by: KINGSLEY CLEMENTS Date: 2022-01-01 13:11[facility]08-18-2022 NotePROCEDURE: XR FOOT RT MIN 3 VIEWS HISTORY: Pain in right foot , chronic COMPARISON: XR foot right 2020 FINDINGS: BONES:No fracture, dislocation, bone lesion. Small calcaneal degenerative enthesophytes. SOFT TISSUES:No visible soft tissue swelling. EFFUSION:None visible. OTHER: Negative. IMPRESSION: 1. No acute bone abnormality or significant degenerative joint disease. Electronically authenticated by: KINGSLEY CLEMENTS Date: 2021-11-21 16:13[facility]06-30-2022 NoteCONSULTATION CONSULTATION DATE: 10/03/2021 This [...] patient agrees with the plan of care. [facility] Signed and Approved by: ZELDA MCDANIEL . 10/10/2021 10:22:00[facility] Diagnosis Onset Date Resolution Status Allergies acute Bipolar 2 disorder acute Hypertension acute Morbid obesity with BMI of 45.0-49.9, adult acute OSMANY (obstructive sleep apnea) acute Restless legs syndrome acute [facility] Work Phone: Evaluation noteNo InformationNortUni-Control Other Evaluation noteNo assessment information available [facility] Work Phone: Evaluation note* Diagnosis Encounter for annual wellness visit (AWV) in Medicare patient- Primary OSMANY (obstructive sleep apnea) Obstructive sleep apnea (adult) (pediatric) Chronic pain disorder Chronic pain syndrome Gastroesophageal reflux disease, unspecified whether esophagitis present Overactive bladder Hypertonicity of bladder Lower extremity edema Edema Pre-diabetes Other abnormal glucose Morbid obesity ([facility]) Morbid obesity Yeast infection of the skin Candidiasis of skin and nails Tobacco dependence Tobacco use disorder Mood disorder ([facility]) Unspecified episodic mood disorder Primary hypertension ([facility]) Unspecified essential hypertension Left hip pain Pain in joint, pelvic region and thigh Open wound of anterior abdominal wall, initial encounter documented in this encounter [facility] HealthcareEvaluation note* Diagnosis Acute cystitis with hematuria- Primary documented in this encounter [facility] HealthcareEvaluation note* Diagnosis Left foot pain- Primary Pain in soft tissues of limb Primary hypertension ([facility]) Unspecified essential hypertension Class 3 severe obesity due to excess calories without serious comorbidity with body mass index (BMI) of 45.0 to 49.9 in adult ([facility]) Encounter for annual wellness visit (AWV) in Medicare patient- Primary OSMANY (obstructive sleep apnea) Obstructive sleep apnea (adult) (pediatric) Chronic pain disorder Chronic pain syndrome Gastroesophageal reflux disease, unspecified whether esophagitis present Overactive bladder Hypertonicity of bladder Lower extremity edema Edema Pre-diabetes Other abnormal glucose Morbid obesity ([facility]) Morbid obesity Yeast infection of the skin Candidiasis of skin and nails Tobacco dependence Tobacco use disorder Mood disorder ([facility]) Unspecified episodic mood disorder Primary hypertension ([facility]) Unspecified essential hypertension Left hip pain Pain in joint, pelvic region and thigh Open wound of anterior abdominal wall, initial encounter Primary hypertension ([facility])- Primary Unspecified essential hypertension Yeast infection of the skin Candidiasis of skin and nails Morbid obesity ([facility]) Morbid obesity Primary hypertension ([facility])- Primary Unspecified essential hypertension Encounter for screening mammogram for malignant neoplasm of breast Gastroesophageal reflux disease, unspecified whether esophagitis present Acute gout of right foot, unspecified cause Osteoporosis, unspecified osteoporosis type, unspecified pathological fracture presence ([facility]) Morbid obesity ([facility]) Morbid obesity Pre-diabetes Other abnormal glucose Anemia, unspecified type Vitamin deficiency Unspecified vitamin deficiency Post-viral cough syndrome Primary hypertension ([facility])- Primary Unspecified essential hypertension Allergic rhinitis, unspecified Acute cough Morbid obesity ([facility]) Morbid obesity Former cigarette smoker Personal history of tobacco use, presenting hazards to health Toxic metabolic encephalopathy- Primary Hemiparesis, right ([facility]) Unspecified hemiplegia affecting unspecified side Acute respiratory failure with hypoxia ([facility]) Heart murmur Undiagnosed cardiac murmurs Primary hypertension ([facility]) Unspecified essential hypertension Morbid obesity ([facility]) Morbid obesity Bipolar disorder with severe depression ([facility]) Slurred speech Other speech disturbance Bilateral lower extremity edema- Primary Primary hypertension ([facility]) Unspecified essential hypertension Lower extremity edema Edema Essential (primary) hypertension ([facility]) Unspecified essential hypertension Gastro-esophageal reflux disease without esophagitis Allergic rhinitis, unspecified Bilateral lower extremity edema- Primary Morbid (severe) obesity due to excess calories ([facility]) Body mass index (BMI) 45.0-49.9, adult ([facility]) Pre-diabetes Other abnormal glucose Bilateral lower extremity edema- Primary Essential (primary) hypertension ([facility]) Unspecified essential hypertension Allergic rhinitis, unspecified OSMANY (obstructive sleep apnea) Obstructive sleep apnea (adult) (pediatric) Primary hypertension ([facility]) Unspecified essential hypertension Morbid obesity ([facility]) Morbid obesity Acute cystitis without hematuria- Primary Tobacco dependence Tobacco use disorder Needs flu shot Need for prophylactic vaccination and inoculation against influenza Morbid obesity ([facility]) Morbid obesity documented in this encounter [facility]* Diagnosis Left foot pain- Primary Pain in soft tissues of limb Primary hypertension ([facility]) Unspecified essential hypertension Class 3 severe obesity due to excess calories without serious comorbidity with body mass index (BMI) of 45.0 to 49.9 in adult ([facility]) Encounter for annual wellness visit (AWV) in Medicare patient- Primary OSMANY (obstructive sleep apnea) Obstructive sleep apnea (adult) (pediatric) Chronic pain disorder Chronic pain syndrome Gastroesophageal reflux disease, unspecified whether esophagitis present Overactive bladder Hypertonicity of bladder Lower extremity edema Edema Pre-diabetes Other abnormal glucose Morbid obesity ([facility]) Morbid obesity Yeast infection of the skin Candidiasis of skin and nails Tobacco dependence Tobacco use disorder Mood disorder ([facility]) Unspecified episodic mood disorder Primary hypertension ([facility]) Unspecified essential hypertension Left hip pain Pain in joint, pelvic region and thigh Open wound of anterior abdominal wall, initial encounter Primary hypertension ([facility])- Primary Unspecified essential hypertension Yeast infection of the skin Candidiasis of skin and nails Morbid obesity ([facility]) Morbid obesity Primary hypertension ([facility])- Primary Unspecified essential hypertension Encounter for screening mammogram for malignant neoplasm of breast Gastroesophageal reflux disease, unspecified whether esophagitis present Acute gout of right foot, unspecified cause Osteoporosis, unspecified osteoporosis type, unspecified pathological fracture presence ([facility]) Morbid obesity ([facility]) Morbid obesity Pre-diabetes Other abnormal glucose Anemia, unspecified type Vitamin deficiency Unspecified vitamin deficiency Post-viral cough syndrome Primary hypertension ([facility])- Primary Unspecified essential hypertension Allergic rhinitis, unspecified Acute cough Morbid obesity ([facility]) Morbid obesity Former cigarette smoker Personal history of tobacco use, presenting hazards to health Toxic metabolic encephalopathy- Primary Hemiparesis, right ([facility]) Unspecified hemiplegia affecting unspecified side Acute respiratory failure with hypoxia ([facility]) Heart murmur Undiagnosed cardiac murmurs Primary hypertension ([facility]) Unspecified essential hypertension Morbid obesity ([facility]) Morbid obesity Bipolar disorder with severe depression ([facility]) Slurred speech Other speech disturbance Bilateral lower extremity edema- Primary Primary hypertension ([facility]) Unspecified essential hypertension Lower extremity edema Edema Essential (primary) hypertension ([facility]) Unspecified essential hypertension Gastro-esophageal reflux disease without esophagitis Allergic rhinitis, unspecified Bilateral lower extremity edema- Primary Morbid (severe) obesity due to excess calories ([facility]) Body mass index (BMI) 45.0-49.9, adult ([facility]) Pre-diabetes Other abnormal glucose Bilateral lower extremity edema- Primary Essential (primary) hypertension ([facility]) Unspecified essential hypertension Allergic rhinitis, unspecified OSMANY (obstructive sleep apnea) Obstructive sleep apnea (adult) (pediatric) Primary hypertension ([facility]) Unspecified essential hypertension Morbid obesity ([facility]) Morbid obesity Acute cystitis without hematuria- Primary Tobacco dependence Tobacco use disorder Needs flu shot Need for prophylactic vaccination and inoculation against influenza Morbid obesity ([facility]) Morbid obesity Restless leg Restless legs syndrome (RLS) documented in this encounter [facility]* Diagnosis Left foot pain- Primary Pain in soft tissues of limb Primary hypertension ([facility]) Unspecified essential hypertension Class 3 severe obesity due to excess calories without serious comorbidity with body mass index (BMI) of 45.0 to 49.9 in adult ([facility]) Encounter for annual wellness visit (AWV) in Medicare patient- Primary OSMANY (obstructive sleep apnea) Obstructive sleep apnea (adult) (pediatric) Chronic pain disorder Chronic pain syndrome Gastroesophageal reflux disease, unspecified whether esophagitis present Overactive bladder Hypertonicity of bladder Lower extremity edema Edema Pre-diabetes Other abnormal glucose Morbid obesity ([facility]) Morbid obesity Yeast infection of the skin Candidiasis of skin and nails Tobacco dependence Tobacco use disorder Mood disorder ([facility]) Unspecified episodic mood disorder Primary hypertension ([facility]) Unspecified essential hypertension Left hip pain Pain in joint, pelvic region and thigh Open wound of anterior abdominal wall, initial encounter Primary hypertension ([facility])- Primary Unspecified essential hypertension Yeast infection of the skin Candidiasis of skin and nails Morbid obesity ([facility]) Morbid obesity Primary hypertension ([facility])- Primary Unspecified essential hypertension Encounter for screening mammogram for malignant neoplasm of breast Gastroesophageal reflux disease, unspecified whether esophagitis present Acute gout of right foot, unspecified cause Osteoporosis, unspecified osteoporosis type, unspecified pathological fracture presence ([facility]) Morbid obesity ([facility]) Morbid obesity Pre-diabetes Other abnormal glucose Anemia, unspecified type Vitamin deficiency Unspecified vitamin deficiency Post-viral cough syndrome Primary hypertension ([facility])- Primary Unspecified essential hypertension Allergic rhinitis, unspecified Acute cough Morbid obesity ([facility]) Morbid obesity Former cigarette smoker Personal history of tobacco use, presenting hazards to health Toxic metabolic encephalopathy- Primary Hemiparesis, right ([facility]) Unspecified hemiplegia affecting unspecified side Acute respiratory failure with hypoxia ([facility]) Heart murmur Undiagnosed cardiac murmurs Primary hypertension ([facility]) Unspecified essential hypertension Morbid obesity ([facility]) Morbid obesity Bipolar disorder with severe depression ([facility]) Slurred speech Other speech disturbance Bilateral lower extremity edema- Primary Primary hypertension ([facility]) Unspecified essential hypertension Lower extremity edema Edema Essential (primary) hypertension ([facility]) Unspecified essential hypertension Gastro-esophageal reflux disease without esophagitis Allergic rhinitis, unspecified Bilateral lower extremity edema- Primary Morbid (severe) obesity due to excess calories ([facility]) Body mass index (BMI) 45.0-49.9, adult ([facility]) Pre-diabetes Other abnormal glucose Bilateral lower extremity edema- Primary Essential (primary) hypertension ([facility]) Unspecified essential hypertension Allergic rhinitis, unspecified OSMANY (obstructive sleep apnea) Obstructive sleep apnea (adult) (pediatric) Primary hypertension ([facility]) Unspecified essential hypertension Morbid obesity ([facility]) Morbid obesity Acute cystitis without hematuria- Primary Tobacco dependence Tobacco use disorder Needs flu shot Need for prophylactic vaccination and inoculation against influenza Morbid obesity ([facility]) Morbid obesity Well woman exam with routine gynecological exam- Primary Routine gynecological examination Morbid obesity ([facility]) Morbid obesity documented in this encounter [facility]* Diagnosis Left foot pain- Primary Pain in soft tissues of limb Primary hypertension ([facility]) Unspecified essential hypertension Class 3 severe obesity due to excess calories without serious comorbidity with body mass index (BMI) of 45.0 to 49.9 in adult ([facility]) Encounter for annual wellness visit (AWV) in Medicare patient- Primary OSMANY (obstructive sleep apnea) Obstructive sleep apnea (adult) (pediatric) Chronic pain disorder Chronic pain syndrome Gastroesophageal reflux disease, unspecified whether esophagitis present Overactive bladder Hypertonicity of bladder Lower extremity edema Edema Pre-diabetes Other abnormal glucose Morbid obesity ([facility]) Morbid obesity Yeast infection of the skin Candidiasis of skin and nails Tobacco dependence Tobacco use disorder Mood disorder ([facility]) Unspecified episodic mood disorder Primary hypertension ([facility]) Unspecified essential hypertension Left hip pain Pain in joint, pelvic region and thigh Open wound of anterior abdominal wall, initial encounter Primary hypertension ([facility])- Primary Unspecified essential hypertension Yeast infection of the skin Candidiasis of skin and nails Morbid obesity ([facility]) Morbid obesity Primary hypertension ([facility])- Primary Unspecified essential hypertension Encounter for screening mammogram for malignant neoplasm of breast Gastroesophageal reflux disease, unspecified whether esophagitis present Acute gout of right foot, unspecified cause Osteoporosis, unspecified osteoporosis type, unspecified pathological fracture presence ([facility]) Morbid obesity ([facility]) Morbid obesity Pre-diabetes Other abnormal glucose Anemia, unspecified type Vitamin deficiency Unspecified vitamin deficiency Post-viral cough syndrome Primary hypertension ([facility])- Primary Unspecified essential hypertension Allergic rhinitis, unspecified Acute cough Morbid obesity ([facility]) Morbid obesity Former cigarette smoker Personal history of tobacco use, presenting hazards to health Toxic metabolic encephalopathy- Primary Hemiparesis, right ([facility]) Unspecified hemiplegia affecting unspecified side Acute respiratory failure with hypoxia ([facility]) Heart murmur Undiagnosed cardiac murmurs Primary hypertension ([facility]) Unspecified essential hypertension Morbid obesity ([facility]) Morbid obesity Bipolar disorder with severe depression ([facility]) Slurred speech Other speech disturbance Bilateral lower extremity edema- Primary Primary hypertension ([facility]) Unspecified essential hypertension Lower extremity edema Edema Essential (primary) hypertension ([facility]) Unspecified essential hypertension Gastro-esophageal reflux disease without esophagitis Allergic rhinitis, unspecified Bilateral lower extremity edema- Primary Morbid (severe) obesity due to excess calories ([facility]) Body mass index (BMI) 45.0-49.9, adult ([facility]) Pre-diabetes Other abnormal glucose Bilateral lower extremity edema- Primary Essential (primary) hypertension ([facility]) Unspecified essential hypertension Allergic rhinitis, unspecified OSMANY (obstructive sleep apnea) Obstructive sleep apnea (adult) (pediatric) Primary hypertension ([facility]) Unspecified essential hypertension Morbid obesity ([facility]) Morbid obesity Acute cystitis without hematuria- Primary Tobacco dependence Tobacco use disorder Needs flu shot Need for prophylactic vaccination and inoculation against influenza Morbid obesity ([facility]) Morbid obesity Well woman exam with routine gynecological exam- Primary Routine gynecological examination Morbid obesity ([facility]) Morbid obesity Essential (primary) hypertension ([facility]) Unspecified essential hypertension Allergic rhinitis, unspecified documented in this encounter [facility]* Diagnosis Left foot pain- Primary Pain in soft tissues of limb Primary hypertension ([facility]) Unspecified essential hypertension Class 3 severe obesity due to excess calories without serious comorbidity with body mass index (BMI) of 45.0 to 49.9 in adult ([facility]) Encounter for annual wellness visit (AWV) in Medicare patient- Primary OSMANY (obstructive sleep apnea) Obstructive sleep apnea (adult) (pediatric) Chronic pain disorder Chronic pain syndrome Gastroesophageal reflux disease, unspecified whether esophagitis present Overactive bladder Hypertonicity of bladder Lower extremity edema Edema Pre-diabetes Other abnormal glucose Morbid obesity ([facility]) Morbid obesity Yeast infection of the skin Candidiasis of skin and nails Tobacco dependence Tobacco use disorder Mood disorder ([facility]) Unspecified episodic mood disorder Primary hypertension ([facility]) Unspecified essential hypertension Left hip pain Pain in joint, pelvic region and thigh Open wound of anterior abdominal wall, initial encounter Primary hypertension ([facility])- Primary Unspecified essential hypertension Yeast infection of the skin Candidiasis of skin and nails Morbid obesity ([facility]) Morbid obesity Primary hypertension ([facility])- Primary Unspecified essential hypertension Encounter for screening mammogram for malignant neoplasm of breast Gastroesophageal reflux disease, unspecified whether esophagitis present Acute gout of right foot, unspecified cause Osteoporosis, unspecified osteoporosis type, unspecified pathological fracture presence ([facility]) Morbid obesity ([facility]) Morbid obesity Pre-diabetes Other abnormal glucose Anemia, unspecified type Vitamin deficiency Unspecified vitamin deficiency Post-viral cough syndrome Primary hypertension ([facility])- Primary Unspecified essential hypertension Allergic rhinitis, unspecified Acute cough Morbid obesity ([facility]) Morbid obesity Former cigarette smoker Personal history of tobacco use, presenting hazards to health Toxic metabolic encephalopathy- Primary Hemiparesis, right ([facility]) Unspecified hemiplegia affecting unspecified side Acute respiratory failure with hypoxia ([facility]) Heart murmur Undiagnosed cardiac murmurs Primary hypertension ([facility]) Unspecified essential hypertension Morbid obesity ([facility]) Morbid obesity Bipolar disorder with severe depression ([facility]) Slurred speech Other speech disturbance Bilateral lower extremity edema- Primary Primary hypertension ([facility]) Unspecified essential hypertension Lower extremity edema Edema Essential (primary) hypertension ([facility]) Unspecified essential hypertension Gastro-esophageal reflux disease without esophagitis Allergic rhinitis, unspecified Bilateral lower extremity edema- Primary Morbid (severe) obesity due to excess calories ([facility]) Body mass index (BMI) 45.0-49.9, adult ([facility]) Pre-diabetes Other abnormal glucose Bilateral lower extremity edema- Primary Essential (primary) hypertension ([facility]) Unspecified essential hypertension Allergic rhinitis, unspecified OSMANY (obstructive sleep apnea) Obstructive sleep apnea (adult) (pediatric) Primary hypertension ([facility]) Unspecified essential hypertension Morbid obesity ([facility]) Morbid obesity Acute cystitis without hematuria- Primary Tobacco dependence Tobacco use disorder Needs flu shot Need for prophylactic vaccination and inoculation against influenza Morbid obesity ([facility]) Morbid obesity Well woman exam with routine gynecological exam- Primary Routine gynecological examination Morbid obesity ([facility]) Morbid obesity Allergic rhinitis, unspecified documented in this encounter [facility]* Diagnosis Left foot pain- Primary Pain in soft tissues of limb Primary hypertension ([facility]) Unspecified essential hypertension Class 3 severe obesity due to excess calories without serious comorbidity with body mass index (BMI) of 45.0 to 49.9 in adult ([facility]) Encounter for annual wellness visit (AWV) in Medicare patient- Primary OSMANY (obstructive sleep apnea) Obstructive sleep apnea (adult) (pediatric) Chronic pain disorder Chronic pain syndrome Gastroesophageal reflux disease, unspecified whether esophagitis present Overactive bladder Hypertonicity of bladder Lower extremity edema Edema Pre-diabetes Other abnormal glucose Morbid obesity ([facility]) Morbid obesity Yeast infection of the skin Candidiasis of skin and nails Tobacco dependence Tobacco use disorder Mood disorder ([facility]) Unspecified episodic mood disorder Primary hypertension ([facility]) Unspecified essential hypertension Left hip pain Pain in joint, pelvic region and thigh Open wound of anterior abdominal wall, initial encounter Primary hypertension ([facility])- Primary Unspecified essential hypertension Yeast infection of the skin Candidiasis of skin and nails Morbid obesity ([facility]) Morbid obesity Primary hypertension ([facility])- Primary Unspecified essential hypertension Encounter for screening mammogram for malignant neoplasm of breast Gastroesophageal reflux disease, unspecified whether esophagitis present Acute gout of right foot, unspecified cause Osteoporosis, unspecified osteoporosis type, unspecified pathological fracture presence ([facility]) Morbid obesity ([facility]) Morbid obesity Pre-diabetes Other abnormal glucose Anemia, unspecified type Vitamin deficiency Unspecified vitamin deficiency Post-viral cough syndrome Primary hypertension ([facility])- Primary Unspecified essential hypertension Allergic rhinitis, unspecified Acute cough Morbid obesity ([facility]) Morbid obesity Former cigarette smoker Personal history of tobacco use, presenting hazards to health Toxic metabolic encephalopathy- Primary Hemiparesis, right ([facility]) Unspecified hemiplegia affecting unspecified side Acute respiratory failure with hypoxia ([facility]) Heart murmur Undiagnosed cardiac murmurs Primary hypertension ([facility]) Unspecified essential hypertension Morbid obesity ([facility]) Morbid obesity Bipolar disorder with severe depression ([facility]) Slurred speech Other speech disturbance Bilateral lower extremity edema- Primary Primary hypertension ([facility]) Unspecified essential hypertension Lower extremity edema Edema Essential (primary) hypertension ([facility]) Unspecified essential hypertension Gastro-esophageal reflux disease without esophagitis Allergic rhinitis, unspecified Bilateral lower extremity edema- Primary Morbid (severe) obesity due to excess calories ([facility]) Body mass index (BMI) 45.0-49.9, adult ([facility]) Pre-diabetes Other abnormal glucose Bilateral lower extremity edema- Primary Essential (primary) hypertension ([facility]) Unspecified essential hypertension Allergic rhinitis, unspecified OSMANY (obstructive sleep apnea) Obstructive sleep apnea (adult) (pediatric) Primary hypertension ([facility]) Unspecified essential hypertension Morbid obesity ([facility]) Morbid obesity Acute cystitis without hematuria- Primary Tobacco dependence Tobacco use disorder Needs flu shot Need for prophylactic vaccination and inoculation against influenza Morbid obesity ([facility]) Morbid obesity Well woman exam with routine gynecological exam- Primary Routine gynecological examination Morbid obesity ([facility]) Morbid obesity Yeast infection of the skin Candidiasis of skin and nails documented in this encounter [facility]* Diagnosis Left foot pain- Primary Pain in soft tissues of limb Primary hypertension ([facility]) Unspecified essential hypertension Class 3 severe obesity due to excess calories without serious comorbidity with body mass index (BMI) of 45.0 to 49.9 in adult ([facility]) Encounter for annual wellness visit (AWV) in Medicare patient- Primary OSMANY (obstructive sleep apnea) Obstructive sleep apnea (adult) (pediatric) Chronic pain disorder Chronic pain syndrome Gastroesophageal reflux disease, unspecified whether esophagitis present Overactive bladder Hypertonicity of bladder Lower extremity edema Edema Pre-diabetes Other abnormal glucose Morbid obesity ([facility]) Morbid obesity Yeast infection of the skin Candidiasis of skin and nails Tobacco dependence Tobacco use disorder Mood disorder ([facility]) Unspecified episodic mood disorder Primary hypertension ([facility]) Unspecified essential hypertension Left hip pain Pain in joint, pelvic region and thigh Open wound of anterior abdominal wall, initial encounter Primary hypertension ([facility])- Primary Unspecified essential hypertension Yeast infection of the skin Candidiasis of skin and nails Morbid obesity ([facility]) Morbid obesity Primary hypertension ([facility])- Primary Unspecified essential hypertension Encounter for screening mammogram for malignant neoplasm of breast Gastroesophageal reflux disease, unspecified whether esophagitis present Acute gout of right foot, unspecified cause Osteoporosis, unspecified osteoporosis type, unspecified pathological fracture presence ([facility]) Morbid obesity ([facility]) Morbid obesity Pre-diabetes Other abnormal glucose Anemia, unspecified type Vitamin deficiency Unspecified vitamin deficiency Post-viral cough syndrome Primary hypertension ([facility])- Primary Unspecified essential hypertension Allergic rhinitis, unspecified Acute cough Morbid obesity ([facility]) Morbid obesity Former cigarette smoker Personal history of tobacco use, presenting hazards to health Toxic metabolic encephalopathy- Primary Hemiparesis, right ([facility]) Unspecified hemiplegia affecting unspecified side Acute respiratory failure with hypoxia ([facility]) Heart murmur Undiagnosed cardiac murmurs Primary hypertension ([facility]) Unspecified essential hypertension Morbid obesity ([facility]) Morbid obesity Bipolar disorder with severe depression ([facility]) Slurred speech Other speech disturbance Bilateral lower extremity edema- Primary Primary hypertension ([facility]) Unspecified essential hypertension Lower extremity edema Edema Essential (primary) hypertension ([facility]) Unspecified essential hypertension Gastro-esophageal reflux disease without esophagitis Allergic rhinitis, unspecified Bilateral lower extremity edema- Primary Morbid (severe) obesity due to excess calories ([facility]) Body mass index (BMI) 45.0-49.9, adult ([facility]) Pre-diabetes Other abnormal glucose Bilateral lower extremity edema- Primary Essential (primary) hypertension ([facility]) Unspecified essential hypertension Allergic rhinitis, unspecified OSMANY (obstructive sleep apnea) Obstructive sleep apnea (adult) (pediatric) Primary hypertension ([facility]) Unspecified essential hypertension Morbid obesity ([facility]) Morbid obesity Acute cystitis without hematuria- Primary Tobacco dependence Tobacco use disorder Needs flu shot Need for prophylactic vaccination and inoculation against influenza Morbid obesity ([facility]) Morbid obesity Well woman exam with routine gynecological exam- Primary Routine gynecological examination Morbid obesity ([facility]) Morbid obesity Metabolic encephalopathy- Primary OSMANY (obstructive sleep apnea) Obstructive sleep apnea (adult) (pediatric) Restless leg Restless legs syndrome (RLS) 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 ([facility]) Degeneration of intervertebral disc of lumbar region with discogenic back pain and lower extremity pain Memory change Memory loss documented in this encounter [facility]* Diagnosis Left foot pain- Primary Pain in soft tissues of limb Primary hypertension ([facility]) Unspecified essential hypertension Class 3 severe obesity due to excess calories without serious comorbidity with body mass index (BMI) of 45.0 to 49.9 in adult ([facility]) Encounter for annual wellness visit (AWV) in Medicare patient- Primary OSMANY (obstructive sleep apnea) Obstructive sleep apnea (adult) (pediatric) Chronic pain disorder Chronic pain syndrome Gastroesophageal reflux disease, unspecified whether esophagitis present Overactive bladder Hypertonicity of bladder Lower extremity edema Edema Pre-diabetes Other abnormal glucose Morbid obesity ([facility]) Morbid obesity Yeast infection of the skin Candidiasis of skin and nails Tobacco dependence Tobacco use disorder Mood disorder ([facility]) Unspecified episodic mood disorder Primary hypertension ([facility]) Unspecified essential hypertension Left hip pain Pain in joint, pelvic region and thigh Open wound of anterior abdominal wall, initial encounter Primary hypertension ([facility])- Primary Unspecified essential hypertension Yeast infection of the skin Candidiasis of skin and nails Morbid obesity ([facility]) Morbid obesity Primary hypertension ([facility])- Primary Unspecified essential hypertension Encounter for screening mammogram for malignant neoplasm of breast Gastroesophageal reflux disease, unspecified whether esophagitis present Acute gout of right foot, unspecified cause Osteoporosis, unspecified osteoporosis type, unspecified pathological fracture presence ([facility]) Morbid obesity ([facility]) Morbid obesity Pre-diabetes Other abnormal glucose Anemia, unspecified type Vitamin deficiency Unspecified vitamin deficiency Post-viral cough syndrome Primary hypertension ([facility])- Primary Unspecified essential hypertension Allergic rhinitis, unspecified Acute cough Morbid obesity ([facility]) Morbid obesity Former cigarette smoker Personal history of tobacco use, presenting hazards to health Toxic metabolic encephalopathy- Primary Hemiparesis, right ([facility]) Unspecified hemiplegia affecting unspecified side Acute respiratory failure with hypoxia ([facility]) Heart murmur Undiagnosed cardiac murmurs Primary hypertension ([facility]) [facility]specified essential hypertension Morbid obesity ([facility]) Morbid obesity Bipolar disorder with severe depression ([facility]) Slurred speech Other speech disturbance Bilateral lower extremity edema- Primary Primary hypertension ([facility]) Unspecified essential hypertension Lower extremity edema Edema Essential (primary) hypertension ([facility]) Unspecified essential hypertension Gastro-esophageal reflux disease without esophagitis Allergic rhinitis, unspecified Bilateral lower extremity edema- Primary Morbid (severe) obesity due to excess calories ([facility]) Body mass index (BMI) 45.0-49.9, adult ([facility]) Pre-diabetes Other abnormal glucose Bilateral lower extremity edema- Primary Essential (primary) hypertension ([facility]) Unspecified essential hypertension Allergic rhinitis, unspecified OSMANY (obstructive sleep apnea) Obstructive sleep apnea (adult) (pediatric) Primary hypertension ([facility]) Unspecified essential hypertension Morbid obesity ([facility]) Morbid obesity Acute cystitis without hematuria- Primary Tobacco dependence Tobacco use disorder Needs flu shot Need for prophylactic vaccination and inoculation against influenza Morbid obesity ([facility]) Morbid obesity Well woman exam with routine gynecological exam- Primary Routine gynecological examination Morbid obesity ([facility]) Morbid obesity Altered mental status, unspecified altered mental status type- Primary Restless leg Restless legs syndrome (RLS) 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[facility]) OSMANY (obstructive sleep apnea) Obstructive sleep apnea (adult) (pediatric) documented in this encounter [facility]* Diagnosis Left foot pain- Primary Pain in soft tissues of limb Primary hypertension ([facility]) Unspecified essential hypertension Class 3 severe obesity due to excess calories without serious comorbidity with body mass index (BMI) of 45.0 to 49.9 in adult ([facility]) Encounter for annual wellness visit (AWV) in Medicare patient- Primary OSMANY (obstructive sleep apnea) Obstructive sleep apnea (adult) (pediatric) Chronic pain disorder Chronic pain syndrome Gastroesophageal reflux disease, unspecified whether esophagitis present Overactive bladder Hypertonicity of bladder Lower extremity edema Edema Pre-diabetes Other abnormal glucose Morbid obesity ([facility]) Morbid obesity Yeast infection of the skin Candidiasis of skin and nails Tobacco dependence Tobacco use disorder Mood disorder ([facility]) Unspecified episodic mood disorder Primary hypertension ([facility]) Unspecified essential hypertension Left hip pain Pain in joint, pelvic region and thigh Open wound of anterior abdominal wall, initial encounter Primary hypertension ([facility])- Primary Unspecified essential hypertension Yeast infection of the skin Candidiasis of skin and nails Morbid obesity ([facility]) Morbid obesity Primary hypertension ([facility])- Primary Unspecified essential hypertension Encounter for screening mammogram for malignant neoplasm of breast Gastroesophageal reflux disease, unspecified whether esophagitis present Acute gout of right foot, unspecified cause Osteoporosis, unspecified osteoporosis type, unspecified pathological fracture presence ([facility]) Morbid obesity ([facility]) Morbid obesity Pre-diabetes Other abnormal glucose Anemia, unspecified type Vitamin deficiency Unspecified vitamin deficiency Post-viral cough syndrome Primary hypertension ([facility])- Primary Unspecified essential hypertension Allergic rhinitis, unspecified Acute cough Morbid obesity ([facility]) Morbid obesity Former cigarette smoker Personal history of tobacco use, presenting hazards to health Toxic metabolic encephalopathy- Primary Hemiparesis, right ([facility]) Unspecified hemiplegia affecting unspecified side Acute respiratory failure with hypoxia ([facility]) Heart murmur Undiagnosed cardiac murmurs Primary hypertension ([facility]) Unspecified essential hypertension Morbid obesity ([facility]) Morbid obesity Bipolar disorder with severe depression ([facility]) Slurred speech Other speech disturbance Bilateral lower extremity edema- Primary Primary hypertension ([facility]) Unspecified essential hypertension Lower extremity edema Edema Essential (primary) hypertension ([facility]) Unspecified essential hypertension Gastro-esophageal reflux disease without esophagitis Allergic rhinitis, unspecified Bilateral lower extremity edema- Primary Morbid (severe) obesity due to excess calories ([facility]) Body mass index (BMI) 45.0-49.9, adult ([facility]) Pre-diabetes Other abnormal glucose Bilateral lower extremity edema- Primary Essential (primary) hypertension ([facility]) Unspecified essential hypertension Allergic rhinitis, unspecified OSMANY (obstructive sleep apnea) Obstructive sleep apnea (adult) (pediatric) Primary hypertension ([facility]) Unspecified essential hypertension Morbid obesity ([facility]) Morbid obesity Acute cystitis without hematuria- Primary Tobacco dependence Tobacco use disorder Needs flu shot Need for prophylactic vaccination and inoculation against influenza Morbid obesity ([facility]) Morbid obesity Well woman exam with routine gynecological exam- Primary Routine gynecological examination Morbid obesity ([facility]) Morbid obesity Altered mental status, unspecified altered mental status type- Primary Memory change Memory loss Concentration deficit 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 ([facility]) PTSD (post-traumatic stress disorder) ([facility]) Posttraumatic stress disorder Bipolar affective disorder, remission status unspecified ([facility]) Family history of dementia Family history of other neurological diseases documented in this encounter [facility]* Diagnosis Encounter for annual wellness visit (AWV) in Medicare patient- Primary OSMANY (obstructive sleep apnea) Obstructive sleep apnea (adult) (pediatric) Chronic pain disorder Chronic pain syndrome Gastroesophageal reflux disease, unspecified whether esophagitis present Overactive bladder Hypertonicity of bladder Lower extremity edema Edema Pre-diabetes Other abnormal glucose Morbid obesity ([facility]) Morbid obesity Yeast infection of the skin Candidiasis of skin and nails Tobacco dependence Tobacco use disorder Mood disorder (CMS/HCC) Unspecified episodic mood disorder Primary hypertension ([facility]/HCC) Unspecified essential hypertension Left hip pain Pain in joint, pelvic region and thigh Open wound of anterior abdominal wall, initial encounter Primary hypertension ([facility]/HCC)- Primary Unspecified essential hypertension Yeast infection of the skin Candidiasis of skin and nails Morbid obesity (CMS/HCC) Morbid obesity Primary hypertension ([facility])- Primary Unspecified essential hypertension Allergic rhinitis, unspecified Acute cough Morbid obesity ([facility]) Morbid obesity Former cigarette smoker Personal history of tobacco use, presenting hazards to health Toxic metabolic encephalopathy- Primary Hemiparesis, right ([facility]) Unspecified hemiplegia affecting unspecified side Acute respiratory failure with hypoxia ([facility]) Heart murmur Undiagnosed cardiac murmurs Primary hypertension ([facility]) Unspecified essential hypertension Morbid obesity ([facility]) Morbid obesity Bipolar disorder with severe depression ([facility]) Slurred speech Other speech disturbance Bilateral lower extremity edema- Primary Primary hypertension ([facility]) Unspecified essential hypertension Lower extremity edema Edema Essential (primary) hypertension ([facility]) Unspecified essential hypertension Gastro-esophageal reflux disease without esophagitis Allergic rhinitis, unspecified Bilateral lower extremity edema- Primary Morbid (severe) obesity due to excess calories ([facility]) Body mass index (BMI) 45.0-49.9, adult ([facility]) Pre-diabetes Other abnormal glucose Bilateral lower extremity edema- Primary Essential (primary) hypertension ([facility]/HCC) Unspecified essential hypertension Allergic rhinitis, unspecified OSMANY (obstructive sleep apnea) Obstructive sleep apnea (adult) (pediatric) Primary hypertension ([facility]) Unspecified essential hypertension Morbid obesity ([facility]) Morbid obesity Acute cystitis without hematuria- Primary Tobacco dependence Tobacco use disorder Needs flu shot Need for prophylactic vaccination and inoculation against influenza Morbid obesity (CMS/HCC) Morbid obesity Well woman exam with routine gynecological exam- Primary Routine gynecological examination Morbid obesity ([facility]/HCC) Morbid obesity Restless leg Restless legs syndrome (RLS) Metabolic encephalopathy- Primary OSMANY (obstructive sleep apnea) Obstructive sleep apnea (adult) (pediatric) Morbid obesity ([facility]/HCC) Morbid obesity Bilateral lower extremity edema Tobacco dependence Tobacco use disorder Bipolar disorder with severe depression ([facility]) At risk for polypharmacy Anxiety Anxiety state, unspecified documented in this encounter [facility]* Diagnosis Encounter for annual wellness visit (AWV) in Medicare patient- Primary OSMANY (obstructive sleep apnea) Obstructive sleep apnea (adult) (pediatric) Chronic pain disorder Chronic pain syndrome Gastroesophageal reflux disease, unspecified whether esophagitis present Overactive bladder Hypertonicity of bladder Lower extremity edema Edema Pre-diabetes Other abnormal glucose Morbid obesity ([facility]/HCC) Morbid obesity Yeast infection of the skin Candidiasis of skin and nails Tobacco dependence Tobacco use disorder Mood disorder ([facility]) Unspecified episodic mood disorder Primary hypertension ([facility]) Unspecified essential hypertension Left hip pain Pain in joint, pelvic region and thigh Open wound of anterior abdominal wall, initial encounter Primary hypertension ([facility]/HCC)- Primary Unspecified essential hypertension Yeast infection of the skin Candidiasis of skin and nails Morbid obesity ([facility]CC) Morbid obesity Primary hypertension ([facility])- Primary Unspecified essential hypertension Allergic rhinitis, unspecified Acute cough Morbid obesity ([facility] [facility]) Morbid obesity Former cigarette smoker Personal history of tobacco use, presenting hazards to health Toxic metabolic encephalopathy- Primary Hemiparesis, right ([facility]) Unspecified hemiplegia affecting unspecified side Acute respiratory failure with hypoxia ([facility]) Heart murmur Undiagnosed cardiac murmurs Primary hypertension ([facility]) Unspecified essential hypertension Morbid obesity ([facility]) Morbid obesity Bipolar disorder with severe depression ([facility]) Slurred speech Other speech disturbance Bilateral lower extremity edema- Primary Primary hypertension ([facility]) Unspecified essential hypertension Lower extremity edema Edema Essential (primary) hypertension ([facility]) Unspecified essential hypertension Gastro-esophageal reflux disease without esophagitis Allergic rhinitis, unspecified Bilateral lower extremity edema- Primary Morbid (severe) obesity due to excess calories ([facility]) Body mass index (BMI) 45.0-49.9, adult ([facility]) Pre-diabetes Other abnormal glucose Bilateral lower extremity edema- Primary Essential (primary) hypertension ([facility]) Unspecified essential hypertension Allergic rhinitis, unspecified OSMANY (obstructive sleep apnea) Obstructive sleep apnea (adult) (pediatric) Primary hypertension ([facility]) Unspecified essential hypertension Morbid obesity ([facility]) Morbid obesity Acute cystitis without hematuria- Primary Tobacco dependence Tobacco use disorder Needs flu shot Need for prophylactic vaccination and inoculation against influenza Morbid obesity (CMS/HCC) Morbid obesity Well woman exam with routine gynecological exam- Primary Routine gynecological examination Morbid obesity (CMS/HCC) Morbid obesity Metabolic encephalopathy- Primary OSMANY (obstructive sleep apnea) Obstructive sleep apnea (adult) (pediatric) Morbid obesity ([facility]) Morbid obesity Bilateral lower extremity edema Tobacco dependence Tobacco use disorder Bipolar disorder with severe depression ([facility]) At risk for polypharmacy Anxiety Anxiety state, unspecified Primary hypertension ([facility]) Unspecified essential hypertension Right bundle branch block (RBBB) determined by electrocardiography [facility] Diagnosis Yeast infection of the skin- Primary Candidiasis of skin and nails documented in [facility]* Diagnosis 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 Restless leg Restless legs syndrome (RLS) Metabolic encephalopathy documented in this [facility]* Diagnosis OSMANY (obstructive sleep apnea)- Primary Obstructive sleep apnea (adult) (pediatric) Restless leg Restless legs syndrome (RLS) documented in [facility]* Diagnosis Bilateral lower extremity edema- Primary Essential (primary) hypertension ([facility]) Unspecified essential hypertension Allergic rhinitis, unspecified OSMANY (obstructive sleep apnea) Obstructive sleep apnea (adult) (pediatric) Primary hypertension ([facility]) Unspecified essential hypertension Morbid obesity ([facility]) Morbid obesity documented [facility] Diagnosis Lower extremity edema Edema documented in [facility]* Diagnosis Encounter for annual wellness visit (AWV) in Medicare patient- Primary OSMANY (obstructive sleep apnea) Obstructive sleep apnea (adult) (pediatric) Chronic pain disorder Chronic pain syndrome Gastroesophageal reflux disease, unspecified whether esophagitis present Overactive bladder Hypertonicity of bladder Lower extremity edema Edema Pre-diabetes Other abnormal glucose Morbid obesity ([facility]) Morbid obesity Yeast infection of the skin Candidiasis of skin and nails Tobacco dependence Tobacco use disorder Mood disorder ([facility]) Unspecified episodic mood disorder Primary hypertension ([facility]) Unspecified essential hypertension Left hip pain Pain in joint, pelvic region and thigh Open wound of anterior abdominal wall, initial encounter Primary hypertension ([facility])- Primary Unspecified essential hypertension Yeast infection of the skin Candidiasis of skin and nails Morbid obesity ([facility]) Morbid obesity Primary hypertension ([facility])- Primary Unspecified essential hypertension Allergic rhinitis, unspecified Acute cough Morbid obesity ([facility]) Morbid obesity Former cigarette smoker Personal history of tobacco use, presenting hazards to health Toxic metabolic encephalopathy- Primary Hemiparesis, right ([facility]) Unspecified hemiplegia affecting unspecified side Acute respiratory failure with hypoxia ([facility]) Heart murmur Undiagnosed cardiac murmurs Primary hypertension ([facility]) Unspecified essential hypertension Morbid obesity ([facility]) Morbid obesity Bipolar disorder with severe depression ([facility]) Slurred speech Other speech disturbance Bilateral lower extremity edema- Primary Primary hypertension ([facility]) Unspecified essential hypertension Lower extremity edema Edema Essential (primary) hypertension ([facility]) Unspecified essential hypertension Gastro-esophageal reflux disease without esophagitis Allergic rhinitis, unspecified Bilateral lower extremity edema- Primary Morbid (severe) obesity due to excess calories ([facility]) Body mass index (BMI) 45.0-49.9, adult ([facility]) Pre-diabetes Other abnormal glucose Bilateral lower extremity edema- Primary Essential (primary) hypertension ([facility]) Unspecified essential hypertension Allergic rhinitis, unspecified OSMANY (obstructive sleep apnea) Obstructive sleep apnea (adult) (pediatric) Primary hypertension ([facility]) Unspecified essential hypertension Morbid obesity ([facility]) Morbid obesity Acute cystitis without hematuria- Primary Tobacco dependence Tobacco use disorder Needs flu shot Need for prophylactic vaccination and inoculation against influenza Morbid obesity ([facility]) Morbid obesity Well woman exam with routine gynecological exam- Primary Routine gynecological examination Morbid obesity ([facility]) Morbid obesity Metabolic encephalopathy- Primary OSMANY (obstructive sleep apnea) Obstructive sleep apnea (adult) (pediatric) Morbid obesity ([facility]) Morbid obesity Bilateral lower extremity edema Tobacco dependence Tobacco use disorder Bipolar disorder with severe depression ([facility]) At risk for polypharmacy Anxiety Anxiety state, unspecified Primary hypertension ([facility]) Unspecified essential hypertension Right bundle branch block (RBBB) determined by electrocardiography Metabolic encephalopathy- Primary Memory change Memory loss Altered mental status, unspecified altered mental status type Concentration deficit PTSD (post-traumatic stress disorder) ([facility]) Posttraumatic stress disorder Bipolar affective disorder, remission status unspecified ([facility]) Family history of dementia Family history of other neurological diseases 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[facility]) OSMANY (obstructive sleep apnea) Obstructive sleep apnea (adult) (pediatric) documented in [facility]* Diagnosis Encounter for annual wellness visit (AWV) in Medicare patient- Primary OSMANY (obstructive sleep apnea) Obstructive sleep apnea (adult) (pediatric) Chronic pain disorder Chronic pain syndrome Gastroesophageal reflux disease, unspecified whether esophagitis present Overactive bladder Hypertonicity of bladder Lower extremity edema Edema Pre-diabetes Other abnormal glucose Morbid obesity ([facility]) Morbid obesity Yeast infection of the skin Candidiasis of skin and nails Tobacco dependence Tobacco use disorder Mood disorder ([facility]) Unspecified episodic mood disorder Primary hypertension ([facility]) Unspecified essential hypertension Left hip pain Pain in joint, pelvic region and thigh Open wound of anterior abdominal wall, initial encounter Primary hypertension ([facility])- Primary Unspecified essential hypertension Yeast infection of the skin Candidiasis of skin and nails Morbid obesity ([facility]) Morbid obesity Primary hypertension ([facility])- Primary Unspecified essential hypertension Allergic rhinitis, unspecified Acute cough Morbid obesity ([facility]) Morbid obesity Former cigarette smoker Personal history of tobacco use, presenting hazards to health Toxic metabolic encephalopathy- Primary Hemiparesis, right ([facility]) Unspecified hemiplegia affecting unspecified side Acute respiratory failure with hypoxia ([facility]) Heart murmur Undiagnosed cardiac murmurs Primary hypertension ([facility]) Unspecified essential hypertension Morbid obesity ([facility]) Morbid obesity Bipolar disorder with severe depression ([facility]) Slurred speech Other speech disturbance Bilateral lower extremity edema- Primary Primary hypertension ([facility]) Unspecified essential hypertension Lower extremity edema Edema Essential (primary) hypertension ([facility]) Unspecified essential hypertension Gastro-esophageal reflux disease without esophagitis Allergic rhinitis, unspecified Bilateral lower extremity edema- Primary Morbid (severe) obesity due to excess calories ([facility]) Body mass index (BMI) 45.0-49.9, adult ([facility]) Pre-diabetes Other abnormal glucose Bilateral lower extremity edema- Primary Essential (primary) hypertension ([facility]) Unspecified essential hypertension Allergic rhinitis, unspecified OSMANY (obstructive sleep apnea) Obstructive sleep apnea (adult) (pediatric) Primary hypertension ([facility]) Unspecified essential hypertension Morbid obesity ([facility]) Morbid obesity Acute cystitis without hematuria- Primary Tobacco dependence Tobacco use disorder Needs flu shot Need for prophylactic vaccination and inoculation against influenza Morbid obesity ([facility]) Morbid obesity Well woman exam with routine gynecological exam- Primary Routine gynecological examination Morbid obesity ([facility]) Morbid obesity Metabolic encephalopathy- Primary OSMANY (obstructive sleep apnea) Obstructive sleep apnea (adult) (pediatric) Morbid obesity ([facility]) Morbid obesity Bilateral lower extremity edema Tobacco dependence Tobacco use disorder Bipolar disorder with severe depression ([facility]) At risk for polypharmacy Anxiety Anxiety state, unspecified Primary hypertension ([facility]) Unspecified essential hypertension Right bundle branch block (RBBB) determined by electrocardiography Transient alteration of awareness- Primary Restless leg Restless legs syndrome (RLS) documented in this encounter [facility] Author Jace Graham [facility] March 23, 2023 11:21am Note Date/Time March 23, 2023 11:21am [facility] [address] [place] [address] Gastroenterology H&P Signed Patient: Michelle Be MR#: [id number] : 1960 Acct:[id number] Age/Sex: 62 / F Adm Date: 3 Loc: Room: Type: [facility] Attending Dr: Jace Graham MD Copies [...] signed by Jace Graham MD> 03/23/23 [facility] Work Phone: History general Narrative - [...] see above surg Hospitalization History stroke 2017 [employer] Other Hospital Discharge instructions Additional Instructions Regular Diet No Activity [facility] Work Phone: Hospital Discharge instructions Additional [...] years. -Follow up with PCP. -Office number [phone].[facility] Work Phone: Reason for visit Narrative* Consultation (Routine) - Closed Specialty Diagnoses / Procedures Referred By Contac t Referred To Contact Neuropsychology Diagnoses Memory change Procedures NM OFFICE/OUTPATIENT [facility] Juany Leggett PA [address] [place] [address] Phone: tel: fax: David Foster, PhD [address] [address] Phone: tel: fax: Referral ID Status Reason Start Date Expiration Date V isits Requested Visits Authorized [id number] Closed Specialty Services Required 03/07/2024 09/03/2024 1 1 [facility] Summary Purpose Family History No Family [...] Documents on File Type Date Recorded 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 Power of Head Swamper 03/10/2024 3:12 PM POA Documents on File Type Date Recorded 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 Power of Head Swamper 03/10/2024 3:12 PM POA Documents on File Type Date Recorded 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 Power of Head Swamper 03/16/2024 9:42 AM darian atkins of state attorney Power of Head Swamper 03/10/2024 3:12 PM POA Chief Complaint and Reason for Visit Chief Complaint Bipolar Depression Reason for Visit Allergies Bipolar 2 disorder Hypertension Morbid obesity with BMI of 45.0-49.9, adult OSMANY (obstructive sleep apnea) Restless legs syndrome Chief Complaint Screening Additional Source Comments INFORMATION SOURCE (unrecogn ized section and content) DATE CREATED AUTHOR 02/18/2019 [facility] DATE CREATED AUTHOR AUTHOR'S ORGANIZ ATION 11/15/2021 [facility] DATE CREATED AUTHOR AUTHOR'S ORGANIZ ATION 08/16/2022 [facility] DATE CREATED AUTHOR AUTHOR'S ORGANIZ ATION 01/31/2024 [facility] DATE CREATED AUTHOR AUTHOR'S ORGANIZ ATION 04/14/2024 [facility] DATE CREATED AUTHOR AUTHOR'S ORGANIZ ATION 04/29/2024 [facility] Care Teams (unrecognized sec tion [...] Bragg MD Other Provider Active Joon Cristina DO Other Provider Active Torin Robert MD [...] MD Other Provider Active Joellen Le , [employer]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 Other Provider Active Severo Yancey MD Other Provider Active Rao Webber MD Other Provider Active Yuan Shi MD Other Provider Active Delroy Ramirez MD Other Provider Active Berta Comer , DO Other Provider Active Negrito Ruiz , DO Other Provider Active Lacho Singh , DO Other Provider Active Rachana Hobson , EMPLOYEE RELATIONS CONSULTANT Other Provider Active Rob Lake , DO Other Provider Active Jeff Alvarez MD Other Provider Active Urmila Rinaldi , EMPLOYEE RELATIONS CONSULTANT Other Provider Active Bina Mayberry , EMPLOYEE RELATIONS CONSULTANT Other Provider Active Mir Bradford MD Other Provider Active Te Da Silva MD Other Provider Active Debra Landaverde RN Other Provider Active Team Status: Inactive Member Role Status Dates Adelaida Carrion Primary Care Provider Active Jace Graham MD Attending Provider Active Bellows Filler Relationship Specialty Start Date End Date José Luis Roberts MD [address] [place] [phone] PCP - General Family Medicine 05/18/23 Adelaida Carrion NP [address] [place] [phone] Referring Physician Nurse Practitioner 10/14/22 Bellows Filler Relationship Specialty Start Date End Date José Luis Roberts MD [address] [place] [phone] PCP - General Family Medicine 05/18/23 Adelaida Carrion NP [address] [place] [phone] Referring Physician Nurse Practitioner 10/14/22 Bellows Filler Relationship Specialty Start Date End Date José Luis Roberts MD [address] [place] [phone] PCP - General Family Medicine 05/18/23 Adelaida Carrion NP [address] [place] [address] Referring Physician Nurse Practitioner 10/14/22 Bellows Filler Relationship Specialty Start Date End Date José Luis Roberts MD [address] [place] [address] PCP - General Family Medicine 05/18/23 Adelaida Carrion, BRIANA Referring Physician Nurse Practitioner 10/14/22 Miriam Suarez DO [address] [place] [address] Referring Physician Neurology 06/29/23 [place] LPN Licensed Practical Nurse Family Medicine 12/18/23 Bellows Filler Relationship Specialty Start Date End Date José Luis Roberts MD [address] [place] [phone] PCP - General Family Medicine 05/18/23 Adelaida Carrion, BRIANA Referring Physician Nurse Practitioner 10/14/22 Miriam Suarez DO [address] [place] [address] Referring Physician Neurology 06/29/23 [place] LPN Licensed Practical Nurse Family Medicine 12/18/23 Bellows Filler Relationship Specialty Start Date End Date Unallocated, Geeta Sierra MD [address] [place] [address] PCP - General Family Medicine 01/27/24 Miriam Suarez DO [address] [place] [address] Referring Physician Neurology 06/29/23 [place] LPN Licensed Practical Nurse Family Medicine 12/18/23 Adelaida Carrion, BRIANA [address] [place] [address] Nurse Practitioner Family Medicine 01/27/24 Bellows Filler Relationship Specialty Start Date End Date Unallocated, Noms MD Mariela [address] [place] [address] PCP - General Family Medicine 01/27/24 Miriam Suarez DO [address] [place] [address] Referring Physician Neurology 06/29/23 [place] De [place] LPN Licensed Practical Nurse Family Medicine 12/18/23 Adelaida Carrion, BRIANA [address] [place] [address] Nurse Practitioner Family Medicine 01/27/24 Bellows Filler Relationship Specialty Start Date End Date José Luis Roberts MD [address] [place] [address] PCP - General Family Medicine 02/02/24 Miriam Suarez DO [address] [place] [address] Referring Physician Neurology 06/29/23 [place] De [place] LPN Licensed Practical Nurse Family Medicine 12/18/23 Adelaida Carrion, BRIANA [address] [place] [address] Nurse Practitioner Family Medicine 01/27/24 Bellows Filler Relationship Specialty Start Date End Date José Luis Roberts MD [address] [place] [address] PCP - General Family Medicine 02/02/24 Miriam Suarez DO [address] [place] [address] Referring Physician Neurology 06/29/23 Adelaida Carrion NP [address] [place] [address] Nurse Practitioner Family Medicine 01/27/24 Bong Rosado MA Family Medicine 02/12/24 Bellows Filler Relationship Specialty Start Date End Date José Luis Roberts MD [address] [place] [phone] PCP - General Family Medicine 02/02/24 Miriam Suarez DO [address] [place] [address] Referring Physician Neurology 06/29/23 Adelaida Carrion NP [address] [place] [address] Nurse Practitioner Family Medicine 01/27/24 Bong Rosado MA Family Medicine 02/12/24 Bellows Filler Relationship Specialty Start Date End Date José Luis Roberts MD [address] [place] [phone] PCP - General Family Medicine 02/02/24 Miriam Suarez DO [address] [place] [address] Referring Physician Neurology 06/29/23 Adelaida Carrion NP [address] [place] [address] Nurse Practitioner Family Medicine 01/27/24 Bong Rosado MA Family Medicine 02/12/24 Bellows Filler Relationship Specialty Start Date End Date José Luis Roberts MD [address] [place] [phone] PCP - General Family Medicine 02/02/24 Miriam Suarez DO [address] [place] [address] Referring Physician Neurology 06/29/23 Adelaida Carrion NP [address] [place] [address] Nurse Practitioner Family Medicine 01/27/24 Bong Rosado MA Family Medicine 02/12/24 Bellows Filler Relationship Specialty Start Date End Date José Luis Roberts MD [address] [place] [phone] PCP - General Family Medicine 02/02/24 Miriam Suarez DO [address] [place] [address] Referring Physician Neurology 06/29/23 Adelaida Carrion NP [address] [place] [address] Nurse Practitioner Family Medicine 01/27/24 Bong Rosado MA Family Medicine 02/12/24 Bellows Filler Relationship Specialty Start Date End Date José Luis Roberts MD [address] [place] [address] PCP - General Family Medicine 02/02/24 Miriam Suarez DO [address] [place] [address] Referring Physician Neurology 06/29/23 Adelaida Carrion NP [address] [place] [address] Nurse Practitioner Family Medicine 01/27/24 Bong Rosado MA Family Medicine 02/12/24 Bellows Filler Relationship Specialty Start Date End Date José Luis Roberts MD [address] [place] [address] PCP - General Family Medicine 02/02/24 Miriam Suarez DO [address] [place] [address] Referring Physician Neurology 06/29/23 Adelaida Carrion, BRIANA [address] [place] [address] Nurse Practitioner Family Medicine 01/27/24 Bong Rosado MA Family Medicine 02/12/24 Bellows Filler Relationship Specialty Start Date End Date José Luis Roberts MD [address] [place] [phone] PCP - General Family Medicine 02/02/24 Miriam Suarez DO [address] [place] [address] Referring Physician Neurology 06/29/23 Adelaida Carrion NP [address] [place] [phone] Nurse Practitioner Family Medicine 01/27/24 Bong Rosado MA Family Medicine 02/12/24 Bellows Filler Relationship Specialty Start Date End Date José Luis Roberts MD [address] [place] [phone] PCP - General Family Medicine 02/02/24 Miriam Suarez DO [address] [place] [address] Referring Physician Neurology 06/29/23 Adelaida Carrion NP [address] [place] [phone] Nurse Practitioner Family Medicine 01/27/24 Bong Rosado MA Family Medicine 02/12/24 Bellows Filler Relationship Specialty Start Date End Date José Luis Roberts MD [address] [place] [phone] PCP - General Family Medicine 02/02/24 Miriam Suarez DO [address] [place] [address] Referring Physician Neurology 06/29/23 Adelaida Carrion NP [address] [place] [phone] Nurse Practitioner Family Medicine 01/27/24 Bong Rosado [facility] Medicine 02/12/24 Bellows Filler Relationship Specialty Start Date End Date José Luis Roberts MD [address] [place] [phone] PCP - General Family Medicine 02/02/24 Miriam Suarez DO [address] [place] [address] Referring Physician Neurology 06/29/23 Adelaida Carrion NP [address] [place] [phone] Nurse Practitioner Family Medicine 01/27/24 Bong Rosado MA [facility] Medicine 02/12/24 Bellows Filler Relationship Specialty Start Date End Date José Luis Roberts MD [address] [place] [phone] PCP - General Family Medicine 05/18/23 Adelaida Carrion NP Referring Physician Nurse Practitioner 10/14/22 Miriam Suarez DO [address] [place] [address] Referring Physician Neurology 06/29/23 Mathew Parra LPN Licensed Practical Nurse Family Medicine 07/23/23 Bellows Filler Relationship Specialty Start Date End Date José Luis Roberts MD [address] [place] [phone] PCP - General Family Medicine 05/18/23 Adelaida Carrion NP Referring Physician Nurse Practitioner 10/14/22 Miriam Suarez DO [address] [place] [address] Referring Physician Neurology 06/29/23 Mathew Parra LPN Licensed Practical Nurse Family Medicine 07/23/23 Bellows Filler Relationship Specialty Start Date End Date José Luis Roberts MD [address] [place] [phone] PCP - General Family Medicine 05/18/23 Adelaida Carrion NP Referring Physician Nurse Practitioner 10/14/22 Miriam Suarez DO [address] [place] [address] Referring Physician Neurology 06/29/23 Mathew Parra LPN Licensed Practical Nurse Family Medicine 07/23/23 Bellows Filler Relationship Specialty Start Date End Date José Luis Roberts MD [address] [place] [phone] PCP - General Family Medicine 05/18/23 Adelaida Carrion NP Referring Physician Nurse Practitioner 10/14/22 Miriam Suarez DO [address] [place], [place] [phone] Referring Physician Neurology 06/29/23 Mathew Parra LPN Licensed Practical Nurse Family Medicine 07/23/23 Bellows Filler Relationship Specialty Start Date End Date José Luis Roberts MD [address] [place] [address] PCP - General Family Medicine 05/18/23 Adelaida Carrion NP Referring Physician Nurse Practitioner 10/14/22 Miriam Suarez DO [address] [place] [address] Referring Physician Neurology 06/29/23 [place] LPN Licensed Practical Nurse Family Medicine 12/18/23 Bellows Filler Relationship Specialty Start Date End Date José Luis Roberts MD [address] [place] [address] PCP - General Family Medicine 05/18/23 Adelaida Carrion NP Referring Physician Nurse Practitioner 10/14/22 Miriam Suarez DO [address] [place] [address] Referring Physician Neurology 06/29/23 [place] LPN Licensed Practical Nurse Family Medicine 12/18/23 Bellows Filler Relationship Specialty Start Date End Date José Luis Roberts MD [address] [place] [phone] PCP - General Family Medicine 05/18/23 Adelaida Carrion NP Referring Physician Nurse Practitioner 10/14/22 Miriam Suarez DO [address] [place] [address] Referring Physician Neurology 06/29/23 [place] LPN Licensed Practical Nurse Family Medicine 12/18/23 Bellows Filler Relationship Specialty Start Date End Date José Luis Roberts MD [address] [place] [address] PCP - General Family Medicine 02/02/24 Miriam Suarez DO [address] [place] [address] Referring Physician Neurology 06/29/23 Adelaida Carrion NP [address] [place] [address] Nurse Practitioner Family Medicine 01/27/24 Bong Rosado MA Family Medicine 02/12/24 REASON FOR VISIT (unrecogniz ed section and content) Reason Comments Med Refill Reason Comments Restless Legs Encephalopathy Reason Comments Hospital Follow-up Reason Comments Anxiety Reason Comments Sleep Apnea Reason Onset Date Comments Med Refill 04/12/2024 FOR RECORDS PERTAINING TO PATIENTS WHO ARE [...] BE BASED ON THE PRIMARY CLINICAL RECORDS. [employer] provides no warranty or guarantee of the accuracy or completeness of information in this document.
--- NOTE | 2024-05-04 09:01 | PM.CN ---
Consult Note: HPI Data of Consult Patient: known to practice within the last 3 years Requesting Physician: Bhakti Culp NP Primary Care Provider: Adelaida Carrion NP Consult Narrative Reason for consult: f/u Narrative: Nasim Ingram a pleasant 63 year old female presents for evaluation of back pain. longstanding hx of moderate to severe back pain unresponsive to >6 weeks of PT/HEP, heat, ice, tylenol, cannot take NSAIDs due to gastric bypass surgery. hx of multilevel spondylosis throughout thoracic and lumbar spine. today pain 9/10 in middle to low back, left side >right side. pain described as deep ache grabbing, increased with twisting pushing pulling standing walking leaning. pain improved with lying down. no recent falls/injury. cc:: CC: Bhakti Culp NP Review of Systems ROS Status of ROS 10 or more systems reviewed and unremarkable except as noted in history and below Musculoskeletal Reports: back pain and joint pain; Denies: extremity pain PFSH [facility] Medical History FH: bariatric surgery ?Z84.89 - Family history of other specified conditions (ICD-10) Upper back pain ?M54.9 - Dorsalgia, unspecified (ICD-10) Osteoarthritis ?M19.90 - Unspecified osteoarthritis, unspecified site (ICD-10) Neck pain ?M54.2 - Cervicalgia (ICD-10) Low back pain ?M54.50 - Low back pain, unspecified (ICD-10) Fibromyalgia ?M79.7 - Fibromyalgia (ICD-10) Bipolar 1 disorder ?F31.9 - Bipolar disorder, unspecified (ICD-10) Acid reflux ?K21.9 - Gastro-esophageal reflux disease without esophagitis (ICD-10) Obesity ?E66.9 - Obesity, unspecified (ICD-10) Sleep apnea ?G47.30 - Sleep apnea, unspecified (ICD-10) Heart murmur ?R01.1 - Cardiac murmur, unspecified (ICD-10) High cholesterol ?E78.00 - Pure hypercholesterolemia, unspecified (ICD-10) Hypertension ?I10 - Essential (primary) hypertension (ICD-10) Surgical History S/P dilatation and curettage ?Z98.890 - Other specified postprocedural states (ICD-10) H/O breast biopsy ?Z98.890 - Other specified postprocedural states (ICD-10) S/P ORIF (open reduction internal fixation) fracture ?Z98.890 - Other specified postprocedural states (ICD-10) ?Z87.81 - Personal history of (healed) traumatic fracture (ICD-10) Hx of laparoscopic gastric banding ?Z98.84 - Bariatric surgery status (ICD-10) History of tonsillectomy and adenoidectomy ?Z90.89 - Acquired absence of other organs (ICD-10) History of appendectomy ?Z90.49 - Acquired absence of other specified parts of digestive tract (ICD-10) History of hemilaminectomy ?Z98.890 - Other specified postprocedural states (ICD-10) History of cholecystectomy ?Z90.49 - Acquired absence of other specified parts of digestive tract (ICD-10) Previous section ?Z98.891 - History of uterine scar from previous surgery (ICD-10) Social History Smoking status: Former smoker Little interest or pleasure in doing things: not at all Feeling down, depressed, or hopeless: not at all Meds Home Medications and Allergies Home Medications ?Medication ?Instructions ?Recorded ?Confirmed ?Type amlodipine 10 mg tablet (Norvasc) 10 mg PO DAILY 09/10/22 03/02/24 History biotin 1 mg capsule 5 mg PO DAILY 09/10/22 03/02/24 History cariprazine 4.5 mg capsule 4.5 mg PO Q24H 09/10/22 03/02/24 History (Vraylar) cetirizine 10 mg tablet (24Hour 10 mg PO DAILY PRN allergy symptoms 09/10/22 03/02/24 History Allergy) clonazepam 1 mg tablet 1 mg PO Q12H 09/10/22 03/02/24 History duloxetine 60 mg capsule,delayed 60 mg PO BID 09/10/22 03/02/24 History release ferrous sulfate 325 mg (65 mg 325 mg PO BID 09/10/22 03/02/24 History iron) tablet (FeroSul) losartan 50 mg tablet (Cozaar) 100 mg PO DAILY 09/10/22 03/02/24 History magnesium 200 mg tablet 400 mg PO QDAY 09/10/22 03/02/24 History melatonin 12 mg tablet 12 mg PO .HS PRN sleep 09/10/22 03/02/24 History omeprazole 20 mg capsule,delayed 20 mg PO QDAY 09/10/22 03/02/24 History release ropinirole 4 mg tablet 4 mg PO QDAY 09/10/22 03/02/24 History trazodone 150 mg tablet 150 mg PO .HS 09/10/22 03/02/24 History tizanidine 2 mg tablet 2 mg PO TID PRN muscle spasticity 10/01/23 03/02/24 Rx #90 tabs fluticasone propionate 50 1 spray intranasal DAILY PRN 10/20/23 03/02/24 History mcg/actuation nasal allergy symptoms spray,suspension (Flonase Allergy Relief) spironolactone 50 mg tablet 50 mg PO DAILY 10/20/23 03/02/24 History gabapentin 300 mg capsule 300 mg PO BID 11/03/23 03/02/24 History calcium citrate 200 mg PO QID 11/04/23 03/02/24 History carvedilol 12.5 mg tablet 12.5 mg PO Q12H 11/04/23 03/02/24 History multivitamin 1 tab PO DAILY 11/04/23 03/02/24 History tizanidine 4 mg capsule See Rx Instructions .Route 04/11/24 Rx .COMPLEX PRN muscle spasticity #180 caps Allergies Allergy/AdvReac Type Severity Reaction Status Date / Time levetiracetam (From Keppra) Allergy Severe Unknown Verified 03/02/24 02:13 adhesive Allergy Intermediate Blister Verified 03/02/24 02:13 Penicillins Allergy Intermediate Unknown Verified 03/02/24 02:13 tetracycline Allergy Intermediate Unknown Verified 03/02/24 02:13 eszopiclone (From Lunesta) Allergy Unknown Verified 03/02/24 02:13 milnacipran (From Savella) AdvReac Intermediate Agitated Verified 03/02/24 02:13 prochlorperazine (From AdvReac Intermediate Agitated Verified 03/02/24 02:13 Compazine) Exam Constitutional Documenting provider has reviewed patient's vital signs: yes Common normals: no apparent distress, oriented x3, healthy appearing, alert and well nourished General appearance: cooperative HENMN Common normals: normocephalic, hearing grossly normal bilaterally and moist oral mucous membranes Head and scalp: normocephalic Eye Common normals: PERRL Pupil: PERRL Neck & C-Spine Common normals: full ROM General: normal visual inspection Chest Common normals: inspection of chest normal Respiratory Common normals: normal respiratory effort, no retractions and no use of accessory muscles Back & Pelvis Thoracic spine/upper back: ROM limited Lumbar spine/lower back: ROM limited, pain with ROM, lumbar spinal tenderness and paraspinal muscle tenderness; no paraspinal muscle spasm Other: positive facet loading L1-4 strength 5/5 in BLE sensation intact BLE Neuro Common normals: oriented x3, CN's II-XII intact bilaterally, moves all extremities, no focal motor deficits, no sensory deficits noted and deep tendon reflexes 2+ bilaterally Sensorium/orientation: alert Motor exam: strength 5/5 throughout and no movement abnormalities noted Psych Common normals: mental status grossly normal, thought process normal, cooperative, affect normal, speech normal and activity/motor behavior normal Speech: normal speech Thought process: normal thought process Assessment and Plan Assessment and Plan (1) Lumbar spondylosis: Assessment and Plan: The patient has had over 3 months of moderate to severe back pain with functional impairment and inadequate response to conservative care including NSAIDS (unless there are contraindication such as concurrent blood thinners), multiple oral or topical pain medications, and home exercise program/physical therapy.? Patient has completed >6 weeks of guided home exercise program and/or formal physical therapy program without relief of their symptoms.? I have reviewed the imaging of the lumbar spine and no red flags were identified.? The imaging reveals radiographic findings consistent with fluoroscopy The Oswestry Disability Index was completed, and the patient scored a 42%.? The patient noted the following:?? moderate to severe pain, pain impacting walking, sitting, standing, sleep, social life and travel We discussed the risks and benefits of the procedure with the patient, and we are NOT planning on using sedation as outlined in the guidelines from Medicare unless there is a documented reason that sedation would be strongly recommended.??The procedure will be completed with fluoroscopic guidance.? Plan bilateral L1-2 L2-3 MBB x2 working towards RFA continue HEP as tolerated continue medication management through PCP, did admit to taking her husbands gabapentin and we discouraged this f/u after each injection
== END 2024-05-04 08:34 | disposition home or self-care (01) ==
LOC: PM 08:34
PROVIDERS: PCP Nurse Practitioner; Visit Provider Nurse Practitioner
DX: M47.816 Spondylosis without myelopathy or radiculopathy, lumbar region (principal)
CPT/HCPCS: G0463

== ENCOUNTER 2024-05-09 06:37 | Day surgery (SDC) | payer MEDICARE, SELFPAY ==
--- OUTSIDE RECORDS SUMMARY | 2024-05-09 06:41 | XMS_ITS | CCD ---
Author Organization [facility] Care Team Providers Care Personal Injury Paralegal Name Role Phone EBRAHEIM, SUKI Admitting Unavailable EBRAHEIM, SUKI Attending Unavailable AICHHOLZ, ADELAIDA Referring Unavailable AICHHOLZ, ADELAIDA Primary Care Unavailable [place] Procedure Practitioner Unavailab SUKI Jacob Surgeon Unavailable [place] Procedure Practitioner Unavailab CHAPARRITA Goncalves Surgeon Unavailable BRIDGETTE MACEDO Admitting Unavailable BRIDGETTE MACEDO Attending Unavailable AICHHOLZ, CIRCUIT CLERK ADELAIDA Primary Care Unavailable NIXON ., DR FINA Iverson Admitting Unavailable NIXON ., DR FINA Iverson Attending Unavailable AICHHOLZ, CIRCUIT CLERK ADELAIDA Primary Care Unavailable MCDANIEL ., ZELDA Consulting Unavailable LAKSHMIPATHY ., NARENDRANATH Consulting Paula vailable LAKSHMIPATHY ., NARENDRANATH Admitting Paula vailable LAKSHMIPATHY ., NARENDRANATH Attending Paula vailable AICHHOLZ, CIRCUIT CLERK ADELAIDA Primary Care Unavailable LAKSHMIPATHY ., NARENDRANATH Consulting Paula vailable AICHHOLZ, CIRCUIT CLERK ADELAIDA Primary Care Unavailable MARKER ., DR CHAUDHRY Admitting Unavailable MARKER ., DR CHAUDHRY Attending Unavailable MARKER ., DR CHAUDHRY Consulting Unavailable AICHHOLZ, CIRCUIT CLERK ADELAIDA Admitting Unavailable AICHHOLZ, CIRCUIT CLERK ADELAIDA Attending Unavailable AICHHOLZ, CIRCUIT CLERK ADELAIDA Primary Care Unavailable NIXON ., DR FINA Iverson Admitting Unavailable NIXON ., DR FINA Iverson Attending Unavailable AICHHOLZ, CIRCUIT CLERK ADELAIDA Primary Care Unavailable MCDANIEL ., ZELDA Consulting Unavailable NIXON ., DR FINA Iverson Admitting Unavailable NIXON ., DR FINA Iverson Attending Unavailable AICHHOLZ, CIRCUIT CLERK ADELAIDA Primary Care Unavailable MCDANIEL ., ZELDA Consulting Unavailable AICHHOLZ, CIRCUIT CLERK ADELAIDA Admitting Unavailable AICHHOLZ, CIRCUIT CLERK ADELAIDA Attending Unavailable AICHHOLZ, CIRCUIT CLERK ADELAIDA Primary Care Unavailable AICHHOLZ, CIRCUIT CLERK ADELAIDA Consulting Unavailable AICHOLZ, CIRCUIT CLERK ADELAIDA Admitting Unavailable AICHHOLZ, CIRCUIT CLERK ADELAIDA Attending Unavailable AICHOLZ, [facility] ADELAIDA Primary Care Unavailable AICHHOLZ, CIRCUIT CLERK ADELAIDA Consulting Unavailable MISC, DR COTE Admitting Unavailable MISC, DR COTE Attending Unavailable AICHOLZ, [facility] ADELAIDA Primary Care Unavailable AICHHOLZ, CIRCUIT CLERK ADELAIDA Consulting Unavailable ELYSSA, DR COTE Consulting Unavailable STARR, DR KINGSLEY Atkins Consulting Unavailable NIXON ., DR FINA Iverson Admitting Unavailable NIXNO ., DR FINA Iverson Attending Unavailable AICHOLZ, [facility] ADELAIDA Primary Care Unavailable MCDANIEL ., ZELDA Consulting Unavailable NIXON ., DR FINA Iverson Admitting Unavailable NIXON ., DR FNIA Iverson Attending [facility]available [facility] Primary Care Unavailable NIXON ., DR FINA Iverson Consulting Unavailable OMID LAY Consulting Unavailable NIXON ., DR FINA Iverson Admitting Unavailable NIXON ., DR FINA Iverson Attending Unavailable [facility], [facility] Primary Care Unavailable MCDANIEL ., ZELDA Consulting Unavailable [facility], [facility] Primary Care Unavailable HALKER ., ARIAN Admitting Unavailable HALKER ., ARIAN Attending Unavailable LAKSHMIPATHY ., NARENDRANATH Consulting Paula vailable HALKER ., ARIAN Consulting Unavailable LAKSHMIPATHY ., NARENDRANATH Admitting Paula vailable LAKSHMIPATHY ., NARENDRANATH Attending Paula vailable [facility], [facility] Primary Care Unavailable LAKSHMIPATHY ., NARENDRANATH Consulting Paula vailable AICHOLZ, CIRCUIT CLERK ADELAIDA Admitting Unavailable AICHOLZ, CIRCUIT CLERK ADELAIDA Attending Unavailable AICHOLZ, CIRCUIT CLERK ADELAIDA Primary Care Unavailable AICHHOLZ, CIRCUIT CLERK ADELAIDA Consulting Unavailable BRIDGETTE MACEDO Admitting Unavailable BRIDGETTE MACEDO Attending Unavailable AICHOLZ, CIRCUIT CLERK ADELAIDA Primary Care Unavailable STARR, DR KINGSLEY Atkins Consulting Unavailable BRIDGETTE MACEDO Consulting Unavailable GILMER NEVES Admitting Unavailable GILMER NEVES Attending Unavailable PURA, GILMER Consulting Unavailable AICHOLZ, CIRCUIT CLERK ADELAIDA Primary Care Unavailable AICHOLZ, CIRCUIT CLERK ADELAIDA Primary Care Unavailable DR WILLI RINALDI Admitting Unavailable DEEJAY, DR WILLI Atkins Attending Unavailable DR WILLI RINALDI Consulting Unavailable AICHOLZ, CIRCUIT CLERK ADELAIDA Primary Care Unavailable ALMAZ ., DANNY Admitting Unavailable ALMAZ ., DANNY Attending Unavailable DR KINGSLEY CLEMENTS Consulting Unavailable ALMAZ ., DANNY Consulting Unavailable LAKSHMIPATHY ., NARENDRANATH Admitting Paula vailable LAKSHMIPATHY ., NARENDRANATH Attending Paula vailable AICHHOLZ, CIRCUIT CLERK ADELAIDA Primary Care Unavailable AICHHOLZ, CIRCUIT CLERK ADELAIDA Admitting Unavailable AICHHOLZ, CIRCUIT CLERK ADELAIDA Attending Unavailable AICHHOLZ, CIRCUIT CLERK ADELAIDA Primary Care Unavailable AICHHOLZ, CIRCUIT CLERK ADELAIDA Admitting Unavailable AICHHOLZ, CIRCUIT CLERK ADELAIDA Attending Unavailable AICHHOLZ, CIRCUIT CLERK ADELAIDA Primary Care Unavailable AICHHOLZ, CIRCUIT CLERK ADELAIDA Consulting Unavailable ZIEBER, DR KINGSLEY Atkins Consulting Unavailable HALKER ., ARIAN Admitting Unavailable HALKER ., ARIAN Attending Unavailable AICHHOLZ, CIRCUIT CLERK ADELAIDA Primary Care Unavailable Aichholz, Adelaida J Primary Care Provider MD Gaudencio Monk Admit Provider MD Gaudencio Monk Attending Provider JOHANN Vieira Other Provider Unavailable JOHANN Pina Other Provider Unavailable JOHANN Hurtado Other Provider Unavailable JOHANN Crooks Other Provider Unavailable JOHANN Mejias Other Provider Unavailable JOHANN Kim Other Provider Unavailable MD Walker Pringle Other Provider Dilans, SPECIAL NEEDS CAREGIVER Adelaida Huddleston Other Provider DO Jessica Murillo Other Provider MD Obdulio Bragg Other Provider [phone] DO Joon Cristina Other Provider MD Torin Robert Other Provider [phone] MD Dawn Barrera Other Provider Karlene [...] Provider MD Jace Graham Attending Provider Sheyla BOW MAKER MACHINE TENDER, Adelaida Unavailable José Luis Roberts MD Primary Care Provider Sheyla BOW MAKER MACHINE TENDER, Adelaida Unavailable Daniela GRAHAM, Miriam Unavailable Moises VALEN, Diana Unavailable Unavailable Unallocated , Familias Provider Primary Care Elizabeth kellee Aichholz BOW MAKER MACHINE TENDER, Adelaida Unavailable Jamee JAIMES, Syeda King Attending Unavailable Jamee JAIMES, Syeda King Attending Unavailable José Luis Roberts MD Primary Care Provider [phone] Bong Rosado MA Unavailable Unavailable Aida MEDICAL SCIENTIFIC LIAISON, Ardana Unavailable Unavailable AICHHOLZ, ADELAIDA Attending Unavailable [...] adverse reactions (disorder) 04-06-19 14 rash [facility] Repository (3 sources) levETIRAcetam; Translations: [KEPPRA] Drug Allergy 07-02-19 19 [facility] Repository (3 sources) milnacipran; Translations: [SAVELLA] Drug Allergy 03-14-20 13 [facility] Repository (1 source) Penicillin; Translations: [PENICILLIN] Drug Allergy 01-16-20 18 [facility] Repository (5 sources) Prochlorperazin e; Translations: [COMPAZINE] Drug Allergy 03-14-20 13 agitation [facility] Repository (20 sources) Tetracycline; Translations: [TETRACYCLINE] Drug Allergy 04-06-19 13 Hives, Unknown [facility] Repository (4 sources) Penicillins Drug allergy (disorder) 04-06-19 13 Unknown Reaction [facility] Repository (20 sources) levETIRAcetam; Translations: [levetiracetam] Drug Allergy 12-13-19 22 Hallucinations , Other [facility] (20 sources) milnacipran; Translations: [milnacipran] Drug Allergy 12-13-19 22 hives, Hallucinations , Other, Unknown [facility] (20 sources) Prochlorperazin e; Translations: [prochlorperazi ne] Drug Allergy 12-13-19 22 Unknown, [facility] (2 sources) Penicillin G Drug Allergy as a child [facility] Other (2 sources) Tetracaine Drug Allergy Unknown [facility] Other (20 sources) Penicillins Drug Intolerance 12-13-19 22 Anaphylaxis [facility] (20 sources) Other Propensity to adverse reactions 12-13-19 22 Other [facility] (20 sources) Wound Dressing Adhesive Drug Allergy 09-20-19 23 Rash, Unknown [facility] (20 sources) Eszopiclone Drug Allergy 09-21-19 24 Hallucinations , Anaphylaxis [facility] (1 source) Penicillin Drug Allergy 03-02-20 24 [facility] Rep[facility] (1 source) Penicillins Drug allergy (disorder) 03-02-20 24 [facility] Repository (1 source) Tetracaine Drug Allergy 03-02-20 [facility] Repository Medications Current Medications Medication [...] 5 MG tabl et Pt taking OTC ([facility]) Active biotin 1 MG caps ule Biotin [...] (CITRACAL + D PO) Pt taking OTC ([facility]) Active Calcium Citrate- Vitamin D (CITRACAL + [...] sources) Magnesium 400 MG capsule Pt taking OTC([facility]) Active Magnesium 400 MG capsule magnesium 0 [...] s-Minerals (BARIATRIC MULTIVITAMINS/IRON PO) Pt taking OTC ([facility] [employer]) Active Multiple Vitamin s-Minerals (BARIATRIC MULTIVITAMINS/IRON PO) Bariatric Multivitamins/Iron 0 Active Lsjkcwbujwrm-Bkk-Annt-Fa-Vit K (Bariatric Multivitamins) 45 mg iron- 800 mcg-120 mcg Capsule (2 sources) Start: 11-17-2022 take 1 capsule by mouth once daily Rwemvefbvsam-Rpo-Eoyx-Fa-Vit K (Bariatric Multivitamins) 45 mg iron- 800 mcg-120 mcg Capsule Active 1 CAP PO Daily November 16, 2022 11:00pm Start: 11-17-2022 take 1 capsule by mo uth once daily Cowzwmirworn-Fgk-Yjzi-Fa-Vit K (Bariatri c Multivitamins) 45 mg iron- 800 mcg-120 mcg Capsule Active 1 CAP PO Daily [place] 14th, 2023 12:00am nystatin 458617 unt/ml topical cream (20 sources) Polyene Antifungal Start: 03-07-2024 nystatin (M ycostatin) cream 03/07/2024 Active nystatin (Mycost atin) 594091 UNIT/GM powder Apply 1 application topically in [...] 05-18-2023 Episodic Other aftercare (1 source) Other intermediate accountant (current) drug therapy; Translations: [OTH CARE HOME CURRENT DRUG THERAPY] Onset: 04-29-2022 Episodic [...] (Bld) [#/Vol] 0.0 10*3/uL Normal 0.0-0.2 [facility] Comment on above: Result Comment: PERF ORMED BY: [place] [address] PATHOLOGIST AIR POLLUTION ENGINEER ADIEL AGUSTIN M.D. Performed By: #### C BC, MG, CMP #### [address] Basophils/100 WBC (Bld) 0.5 % Normal . [facility] Comment on above: Performed By: #### C BC, MG, CMP #### [address] Eosinophils (Bld) [#/Vol] 0.2 10*3/uL Normal 0.0-0.45 [facility] Comment on above: Performed By: #### C BC, MG, CMP #### [address] Eosinophils/100 WBC (Bld) 2.2 % Normal . [facility] Comment on above: Performed By: #### C BC, MG, CMP #### [address] Erythrocyte distribution width (RBC) [Ratio] 14.5 % Normal 11.9-15.3 [facility] Comment on above: Performed By: #### C BC, MG, CMP #### [address] Hematocrit (Bld) [Volume fraction] 43.0 % Normal 34.0-46.4 [facility] Comment on above: Performed By: #### C BC, MG, CMP #### [address] Hemoglobin (Bld) [Mass/Vol] 14.3 g/dL Normal 11.8-15.4 [facility] Comment on above: Performed By: #### C BC, MG, CMP #### [address] Lymphocytes (Bld) [#/Vol] 1.8 10*3/uL Normal 1.00-4.8 [facility] Comment on above: Performed By: #### C BC, MG, CMP #### [address] Lymphocytes/100 WBC (Bld) 18.9 % Normal . [facility] Comment on above: Performed By: #### C BC, MG, CMP #### [address] MCH (RBC) [Entitic mass] 29.0 pg Normal 24.7-34.3 [facility] Comment on above: Performed By: #### C BC, MG, CMP #### [address] MCV (RBC) [Entitic vol] 87.0 fL Normal 80-100 [facility] Comment on above: Performed By: #### C BC, MG, CMP #### [address] Mean Corpuscular HGB Conc 33.4 g/dL Normal 32.0-35.0 [facility] Comment on above: Performed By: #### C BC, MG, CMP #### [address] Monocytes (Bld) [#/Vol] 0.5 10*3/uL Normal 0.0-0.8 [facility] Comment on above: Performed By: #### C BC, MG, CMP #### [address] Monocytes/100 WBC (Bld) 5.5 % Normal . [facility] Comment on above: Performed By: #### C BC, MG, CMP #### [facility] [address] Neutrophils (Bld) [#/Vol] 7.0 10*3/uL Normal 1.8-7.7 [facility] Comment on above: Performed By: #### C BC, MG, CMP #### [facility] [address] [place] [address] [place] Neutrophils/100 WBC (Bld) 72.9 % Normal . [facility] Comment on above: Performed By: #### C BC, MG, CMP #### [facility] [address] NRBC% 0.0 /100{WBC} Normal 0-0.5 [facility] Comment on above: Performed By: #### C BC, MG, CMP #### [facility] [address] [place] [address] Platelet mean volume (Bld) [Entitic vol] 8.9 fL Normal 6.3-10.7 [facility] Comment on above: Performed By: #### C BC, MG, CMP #### [place] [address] [place] Platelets (Bld) [#/Vol] 289 10*3/uL Normal 150-450 [facility] Comment on above: Performed By: #### C BC, MG, CMP #### [facility] [address] [place] [address] [place] RBC (Bld) [#/Vol] 4.94 10*6/uL Normal 3.60-5.00 [facility] Comment on above: Performed By: #### C BC, MG, CMP #### [facility] [address] [place] [address] [place] WBC (Bld) [#/Vol] 9.6 10*3/uL Normal 3.8-11.6 [facility] Comment on above: Performed By: #### C BC, MG, CMP #### [address] [place] [address] [place] Comprehensive Metabolic Pane [place] 03-05-2024 Albumin [Mass/Vol] 4.4 g/dL Normal 3.5-5.7 [facility] Comment on above: Performed By: #### C BC, MG, CMP #### [address] Albumin/Globulin [Mass ratio] 1.3 {ratio} Normal [facility] Comment on above: Performed By: #### C BC, MG, CMP #### [address] ALP [Catalytic activity/Vol] 79 U/L Normal 34-104 [facility] Comment on above: Performed By: #### C BC, MG, CMP #### [address] ALT [Catalytic activity/Vol] 23 U/L Normal 7-52 [facility] Comment on above: Performed By: #### C BC, MG, CMP #### [address] Anion gap [Moles/Vol] 15.4 mmol/L High 6.0-15.0 [facility] Comment on above: Performed By: #### C BC, MG, CMP #### [address] AST [Catalytic activity/Vol] 36 U/L Normal 13-39 [facility] Comment on above: Performed By: #### C BC, MG, CMP #### [address] Bilirubin [Mass/Vol] 0.4 mg/dL Normal 0.3-1.0 [facility] Comment on above: Performed By: #### C BC, MG, CMP #### [address] Calcium [Mass/Vol] 9.5 mg/dL Normal 8.6-10.3 [facility] Comment on above: Performed By: #### C BC, MG, CMP #### [address] Chloride [Moles/Vol] 106 mmol/L Normal 98-107 [facility] Comment on above: Performed By: #### C BC, MG, CMP #### [address] CO2 [Moles/Vol] 23.1 mmol/L Normal 21.0-31.0 [facility] Comment on above: Performed By: #### C BC, MG, CMP #### [address] Creatinine [Mass/Vol] 0.96 mg/dL Normal 0.60-1.20 [facility] Comment on above: Performed By: #### C BC, MG, CMP #### [address] Creatinine Clr Calc Pharmacy 84.51 Normal [facility] Comment on above: Performed By: #### C BC, MG, CMP #### [place] [address] [place] GFR/1.73 sq M.predicted MDRD (S/P/Bld) [Vol rate/Area] mL/min/{1.73_m2} Normal [facility] Comment on above: Performed By: #### C BC, MG, CMP #### [address] Globulin (S) [Mass/Vol] 3.3 g/dL Normal [facility] Comment on above: Performed By: #### C BC, MG, CMP #### [address] Glucose [Mass/Vol] 133 mg/dL High 70-100 [facility] Comment on above: Result Comment: [place] Glucose Reference Range is dependent on time and content of last meal. Glucose of more than 200 mg/dL in a nonstressed, ambulatory subject supports the diagnosis of Diabetes Mellitus. ADA recommended reference range Performed By: #### C BC, MG, CMP #### [place] [address] [place] Potassium [Moles/Vol] 3.5 mmol/L Normal 3.5-5.1 [facility] Comment on above: Performed By: #### C BC, MG, CMP #### [address] Protein [Mass/Vol] 7.7 g/dL Normal 6.4-8.9 [facility] Comment on above: Performed By: #### C BC, MG, CMP #### [address] Sodium [Moles/Vol] 141 mmol/L Normal 136-145 [facility] Comment on above: Performed By: #### C BC, MG, CMP #### [address] Urea nitrogen [Mass/Vol] 18 mg/dL Normal 7-25 [facility] Comment on above: Performed By: #### C BC, MG, CMP #### [address] Magnesiumon 03-05-2024 Magnesium [Mass/Vol] 2.0 mg/dL Normal 1.9-2.7 [facility] Comment on above: Result Comment: PERF ORMED BY: [place] [address] PATHOLOGIST AIR POLLUTION ENGINEER ADIEL AGUSTIN M.D. Performed By: #### C BC, MG, CMP #### [address] Complete Blood Count Auto Di ffon 03-04-2024 Basophils (Bld) [#/Vol] 0.1 10*3/uL Normal 0.0-0.2 [facility] Comment on above: Result Comment: PERF ORMED BY: [place] [address] PATHOLOGIST AIR POLLUTION ENGINEER ADIEL AGUSTIN M.D. Performed By: #### C MP, MG, CBC #### [address] Basophils/100 WBC (Bld) 0.6 % Normal . [facility] Comment on above: Performed By: #### C MP, MG, CBC #### [address] Eosinophils (Bld) [#/Vol] 0.2 10*3/uL Normal 0.0-0.45 [facility] Comment on above: Performed By: #### C MP, MG, CBC #### [address] Eosinophils/100 WBC (Bld) 1.9 % Normal . [facility] Comment on above: Performed By: #### C MP, MG, CBC #### [address] Erythrocyte distribution width (RBC) [Ratio] 14.6 % Normal 11.9-15.3 [facility] Comment on above: Performed By: #### C MP, MG, CBC #### [address] Hematocrit (Bld) [Volume fraction] 43.5 % Normal 34.0-46.4 [facility] Comment on above: Performed By: #### C MP, MG, CBC #### [address] Hemoglobin (Bld) [Mass/Vol] 14.4 g/dL Normal 11.8-15.4 [facility] Comment on above: Performed By: #### C MP, MG, CBC #### [address] Lymphocytes (Bld) [#/Vol] 1.8 10*3/uL Normal 1.00-4.8 [facility] Comment on above: Performed By: #### C MP, MG, CBC #### [place] [address] [place] Lymphocytes/100 WBC (Bld) 18.0 % Normal . [facility] Comment on above: Performed By: #### C MP, MG, CBC #### [address] MCH (RBC) [Entitic mass] 28.8 pg Normal 24.7-34.3 [facility] Comment on above: Performed By: #### C MP, MG, CBC #### [address] MCV (RBC) [Entitic vol] 87.0 fL Normal 80-100 [facility] Comment on above: Performed By: #### C MP, MG, CBC #### [address] Mean Corpuscular HGB Conc 33.2 g/dL Normal 32.0-35.0 [facility] Comment on above: Performed By: #### C MP, MG, CBC #### [address] Monocytes (Bld) [#/Vol] 0.8 10*3/uL Normal 0.0-0.8 [facility] Comment on above: Performed By: #### C MP, MG, CBC #### [address] Monocytes/100 WBC (Bld) 8.2 % Normal . [facility] Comment on above: Performed By: #### C MP, MG, CBC #### [address] Neutrophils (Bld) [#/Vol] 7.3 10*3/uL Normal 1.8-7.7 [facility] Comment on above: Performed By: #### C MP, MG, CBC #### [address] Neutrophils/100 WBC (Bld) 71.3 % Normal . [facility] Comment on above: Performed By: #### C MP, MG, CBC #### [address] NRBC% 0.1 /100{WBC} Normal 0-0.5 [facility] Comment on above: Performed By: #### C MP, MG, CBC #### [address] Platelet mean volume (Bld) [Entitic vol] 8.8 fL Normal 6.3-10.7 [facility] Comment on above: Performed By: #### C MP, MG, CBC #### [address] Platelets (Bld) [#/Vol] 334 10*3/uL Normal 150-450 [facility] Comment on above: Performed By: #### C MP, MG, CBC #### [address] RBC (Bld) [#/Vol] 5.01 10*6/uL High 3.60-5.00 [facility] Comment on above: Performed By: #### C MP, MG, CBC #### [address] WBC (Bld) [#/Vol] 10.3 10*3/uL Normal 3.8-11.6 [facility] Comment on above: Performed By: #### C MP, MG, CBC #### [address] Comprehensive Metabolic Pane [place] 03-04-2024 Albumin [Mass/Vol] 4.5 g/dL Normal 3.5-5.7 [facility] Comment on above: Performed By: #### C MP, MG, CBC #### [address] Albumin/Globulin [Mass ratio] 1.4 {ratio} Normal [facility] Comment on above: Performed By: #### C MP, MG, CBC #### [address] ALP [Catalytic activity/Vol] 79 U/L Normal 34-104 [facility] Comment on above: Performed By: #### C MP, MG, CBC #### [address] ALT [Catalytic activity/Vol] 19 U/L Normal 7-52 [facility] Comment on above: Performed By: #### C MP, MG, CBC #### [facility] [address] Anion gap [Moles/Vol] 11.4 mmol/L Normal 6.0-15.0 [facility] Comment on above: Performed By: #### C MP, MG, CBC #### [facility] [address] AST [Catalytic activity/Vol] 37 U/L Normal 13-39 [facility] Comment on above: Performed By: #### C MP, MG, CBC #### [facility] [address] [place] [address] [place] Bilirubin [Mass/Vol] 0.5 mg/dL Normal 0.3-1.0 [facility] Comment on above: Performed By: #### C MP, MG, CBC #### [facility] [address] Calcium [Mass/Vol] 9.6 mg/dL Normal 8.6-10.3 [facility] Comment on above: Performed By: #### C MP, MG, CBC #### [facility] [address] [place] [address] [place] Chloride [Moles/Vol] 107 mmol/L Normal 98-107 [facility] Comment on above: Performed By: #### C MP, MG, CBC #### [facility] [address] [place] [address] [place] CO2 [Moles/Vol] 27.4 mmol/L Normal 21.0-31.0 [facility] Comment on above: Performed By: #### C MP, MG, CBC #### [facility] [address] [place] [address] [place] Creatinine [Mass/Vol] 0.91 mg/dL Normal 0.60-1.20 [facility] Comment on above: Performed By: #### C MP, MG, CBC #### [facility] [address] [place] [address] [place] Creatinine Clr Calc Pharmacy 90.12 Normal [facility] Comment on above: Performed By: #### C MP, MG, CBC #### [facility] [address] GFR/1.73 sq M.predicted MDRD (S/P/Bld) [Vol rate/Area] mL/min/{1.73_m2} Normal [facility] Comment on above: Performed By: #### C MP, MG, CBC #### [address] Globulin (S) [Mass/Vol] 3.2 g/dL Normal [facility] Comment on above: Performed By: #### C MP, MG, CBC #### [address] Glucose [Mass/Vol] 100 mg/dL Normal 70-100 [facility] Comment on above: Result Comment: [facility] Glucose Reference Range is dependent on time and content of last meal. Glucose of more than 200 mg/dL in a nonstressed, ambulatory subject supports the diagnosis of Diabetes Mellitus. ADA recommended reference range Performed By: #### C MP, MG, CBC #### [address] Potassium [Moles/Vol] 3.8 mmol/L Normal 3.5-5.1 [facility] Comment on above: Performed By: #### C MP, MG, CBC #### [address] Protein [Mass/Vol] 7.7 g/dL Normal 6.4-8.9 [facility] Comment on above: Performed By: #### C MP, MG, CBC #### [address] Sodium [Moles/Vol] 142 mmol/L Normal 136-145 [facility] Comment on above: Performed By: #### C MP, MG, CBC #### [address] Urea nitrogen [Mass/Vol] 15 mg/dL Normal 7-25 [facility] Comment on above: Performed By: #### C MP, MG, CBC #### [address] MR head/brain wo/w con MR head/brain wo/w con [facility] Main [place] [address] [place] [address] MRI Report Signed Patient: Michelle Be MR#: [id number] : 1960 Acct:[id number] Age/Sex: 63 / F ADM Date: 03/03/24 Loc: 3T Room: [address] [place] [address] Type: ADM IN Attending Dr: Delta Gan [...] Willi Guadalupe M.D.03/04/2024 2:32 PM Dictation Location: [place] [address] Transcribed By: [facility] 03/04/24 1432 Dictated By: Willi Guadalupe II, MD 03/04/24 1424 Signed By: 03/04/24 1432 Normal [facility] Magnesiumon 03-04-2024 Magnesium [Mass/Vol] 2.0 mg/dL Normal 1.9-2.7 [facility] Comment on above: Result Comment: PERF ORMED BY: [place] [address] PATHOLOGIST AIR POLLUTION ENGINEER ADIEL AGUSTIN M.D. Performed By: #### C MP, MG, CBC #### [address] Complete Blood Count Auto Di ffon 03-03-2024 Basophils (Bld) [#/Vol] 0.1 10*3/uL Normal 0.0-0.2 [facility] Comment on above: Order Comment: RIN T O COME TRY,KAH,160 Result Comment: PERF ORMED BY: [place] [address] PATHOLOGIST AIR POLLUTION ENGINEER ADIEL AGUSTIN M.D. Performed By: #### C BC, CMP #### [address] Basophils/100 WBC (Bld) 0.6 % Normal . [facility] Comment on above: Order Comment: RIN T O COME TRY,KAH,1607 Performed By: #### C BC, CMP #### [address] Eosinophils (Bld) [#/Vol] 0.1 10*3/uL Normal 0.0-0.45 [facility] Comment on above: Order Comment: RIN T O COME TRY,KAH,1607 Performed By: #### C BC, CMP #### [address] Eosinophils/100 WBC (Bld) 1.0 % Normal . [facility] Comment on above: Order Comment: RIN T O COME TRY,KAH,1607 Performed By: #### C BC, CMP #### [address] Erythrocyte distribution width (RBC) [Ratio] 14.6 % Normal 11.9-15.3 [facility] Comment on above: Order Comment: RIN T O COME TRY,KAH,1607 Performed By: #### C BC, CMP #### [address] Hematocrit (Bld) [Volume fraction] 42.9 % Normal 34.0-46.4 [facility] Comment on above: Order Comment: RIN T O COME TRY,KAH,1607 Performed By: #### C BC, CMP #### [address] Hemoglobin (Bld) [Mass/Vol] 14.5 g/dL Normal 11.8-15.4 [facility] Comment on above: Order Comment: RIN T O COME TRY,KAH,1607 Performed By: #### C BC, CMP #### [address] Lymphocytes (Bld) [#/Vol] 1.7 10*3/uL Normal 1.00-4.8 [facility] Comment on above: Order Comment: RIN T O COME TRY,KAH,1607 Performed By: #### C BC, CMP #### [address] Lymphocytes/100 WBC (Bld) 15.7 % Normal . [facility] Comment on above: Order Comment: RIN T O COME TRY,KAH,1607 Performed By: #### C BC, CMP #### [address] MCH (RBC) [Entitic mass] 29.1 pg Normal 24.7-34.3 [facility] Comment on above: Order Comment: RIN T O COME TRY,KAH,1607 Performed By: #### C BC, CMP #### [address] MCV (RBC) [Entitic vol] 85.9 fL Normal 80-100 [facility] Comment on above: Order Comment: RIN T O COME TRY,KAH,1607 Performed By: #### C BC, CMP #### [facility] [address] Mean Corpuscular HGB Conc 33.8 g/dL Normal 32.0-35.0 [facility] Comment on above: Order Comment: RIN T O COME TRY,KAH,1607 Performed By: #### C BC, CMP #### [facility] [address] [place] [address] [place] Monocytes (Bld) [#/Vol] 0.9 10*3/uL High 0.0-0.8 [facility] Comment on above: Order Comment: RIN T O COME TRY,KAH,1607 Performed By: #### C BC, CMP #### [address] Monocytes/100 WBC (Bld) 8.4 % Normal . [facility] Comment on above: Order Comment: RIN T O COME TRY,KAH,1607 Performed By: #### C BC, CMP #### [address] Neutrophils (Bld) [#/Vol] 8.0 10*3/uL High 1.8-7.7 [facility] Comment on above: Order Comment: RIN T O COME TRY,KAH,1607 Performed By: #### C BC, CMP #### [place] [address] [place] Neutrophils/100 WBC (Bld) 74.3 % Normal . [facility] Comment on above: Order Comment: RIN T O COME TRY,KAH,1607 Performed By: #### C BC, CMP #### [place] [address] [place] NRBC% 0.1 /100{WBC} Normal 0-0.5 [facility] Comment on above: Order Comment: RIN T O COME TRY,KAH,1607 Performed By: #### C BC, CMP #### [address] Platelet mean volume (Bld) [Entitic vol] 8.9 fL Normal 6.3-10.7 [facility] Comment on above: Order Comment: RIN T O COME TRY,KAH,1607 Performed By: #### C BC, CMP #### [facility] [address] [place] [address] Platelets (Bld) [#/Vol] 291 10*3/uL Normal 150-450 [facility] Comment on above: Order Comment: RIN T O COME TRY,KAH,1607 Performed By: #### C BC, CMP #### [address] RBC (Bld) [#/Vol] 4.99 10*6/uL Normal 3.60-5.00 [facility] Comment on above: Order Comment: RIN T O COME TRY,KAH,1607 Performed By: #### C BC, CMP #### [address] WBC (Bld) [#/Vol] 10.7 10*3/uL Normal 3.8-11.6 [facility] Comment on above: Order Comment: RIN T O COME TRY,KAH,1607 Performed By: #### C BC, CMP #### [address] Comprehensive Metabolic Pane [place] 03-03-2024 Albumin [Mass/Vol] 4.6 g/dL Normal 3.5-5.7 [facility] Comment on above: Order Comment: RIN T O COME TRY,KAH,1607 Performed By: #### C BC, CMP #### [address] Albumin/Globulin [Mass ratio] 1.4 {ratio} Normal [facility] Comment on above: Order Comment: RIN T O COME TRY,KAH,1607 Performed By: #### C BC, CMP #### [address] ALP [Catalytic activity/Vol] 80 U/L Normal 34-104 [facility] Comment on above: Order Comment: RIN T O COME TRY,KAH,1607 Performed By: #### C BC, CMP #### [place] [id number] [place] ALT [Catalytic activity/Vol] 16 U/L Normal 7-52 [facility] Comment on above: Order Comment: RIN T O COME TRY,KAH,1607 Performed By: #### C BC, CMP #### [facility] [address] Anion gap [Moles/Vol] 13.6 mmol/L Normal 6.0-15.0 [facility] Comment on above: Order Comment: RIN T O COME TRY,KAH,1607 Performed By: #### C BC, CMP #### [facility] [address] [place] [address] AST [Catalytic activity/Vol] 35 U/L Normal 13-39 [facility] Comment on above: Order Comment: RIN T O COME TRY,KAH,1607 Performed By: #### C BC, CMP #### [facility] [address] [place] [address] Bilirubin [Mass/Vol] 0.3 mg/dL Normal 0.3-1.0 [facility] Comment on above: Order Comment: RIN T O COME TRY,KAH,1607 Performed By: #### C BC, CMP #### [facility] [address] [place] [address] Calcium [Mass/Vol] 9.3 mg/dL Normal 8.6-10.3 [facility] Comment on above: Order Comment: RIN T O COME TRY,KAH,1607 Performed By: #### C BC, CMP #### [facility] [address] [place] [address] [place] Chloride [Moles/Vol] 109 mmol/L High 98-107 [facility] Comment on above: Order Comment: RIN T O COME TRY,KAH,1607 Performed By: #### C BC, CMP #### [facility] [address] [place] [address] [place] CO2 [Moles/Vol] 22.4 mmol/L Normal 21.0-31.0 The [facility] Comment on above: Order Comment: RIN T O COME TRY,KAH,1607 Performed By: #### C BC, CMP #### [facility] [address] Creatinine [Mass/Vol] 0.93 mg/dL Normal 0.60-1.20 [facility] Comment on above: Order Comment: RIN T O COME TRY,KAH,1606 Performed By: #### C BC, CMP #### [facility] [address] Creatinine Clr Calc Pharmacy 87.94 Normal [facility] Comment on above: Order Comment: RIN T O COME TRY,KAH,1606 Result Comment: PERF ORMED BY: [place] [address] PATHOLOGIST AIR POLLUTION ENGINEER ADIEL AGUSTIN M.D. Performed By: #### C BC, CMP #### [facility] [address] GFR/1.73 sq M.predicted MDRD (S/P/Bld) [Vol rate/Area] mL/min/{1.73_m2} Normal [facility] Comment on above: Order Comment: RIN T O COME TRY,,1606 Performed By: #### C BC, CMP #### [facility] [address] Globulin (S) [Mass/Vol] 3.2 g/dL Normal [facility] Comment on above: Order Comment: REY T O COME TRY,,1606 Performed By: #### C BC, CMP #### [address] Glucose [Mass/Vol] 105 mg/dL High 70-100 [facility] Comment on above: Order Comment: RIN T O COME TRY,KAH,1606 Result Comment: [place] om Glucose Reference Range is dependent on time and content of last meal. Glucose of more than 200 mg/dL in a nonstressed, ambulatory subject supports the diagnosis of Diabetes Mellitus. ADA recommended reference range Performed By: #### C BC, CMP #### [facility] [address] Potassium [Moles/Vol] 4.0 mmol/L Normal 3.5-5.1 [facility] Comment on above: Order Comment: REY PORRAS,KAH,160 Performed By: #### C BC, CMP #### [address] Protein [Mass/Vol] 7.8 g/dL Normal 6.4-8.9 [facility] Comment on above: Order Comment: REY PORRAS,KAH,160 Performed By: #### C BC, CMP #### [address] Sodium [Moles/Vol] 141 mmol/L Normal 136-145 [facility] Comment on above: Order Comment: REY PORRAS,KAH,160 Performed By: #### C BC, CMP #### [address] Urea nitrogen [Mass/Vol] 15 mg/dL Normal 7-25 [facility] Comment on above: Order Comment: REY PORRAS,KAH,160 Performed By: #### C BC, CMP #### [address] IGP,APTIMA HPV,AGE GDLNon AGE GDLN ACOG TESTING Note . [facility] Comment on above: TESTS RESULT FLAG UN ITS REF RANGE LAB Clinician Provided Cytology Information Source.............Cervix;Endocervix No. of containers..01 ThinPrep Vial Age Algo ACOG Tona... 30-65 01 FLAG LEGEND: L-Low Normal,H-High Normal,LL-Alert Low,HH-Alert High <-Panic Low,>-Panic High,A-Abnormal,AA-Critical Abnormal Performed at: 01 =[address] [place] [address] Farzana Hennessy MD, HPV APTIMA Negative Negative [facility] Comment on above: This nucleic acid am plification test detects fourteen high- risk HPV types (16,18,31,33,35,39,45,51,52,56,58,59,66,68) without differentiation. Performed at: =[address], [place] [id number] Pattern Shop Supervisor: Farzana Hennessy MD, Phone: [phone] Performed at: [facility] [address] [place] [id number] Pattern Shop Supervisor: Scott Sandoval MD, Phone: [phone] IGP, APTIMA HPV, RFX 16/18,45 Note . [facility] Comment on above: TESTS RESULT FLAG UN ITS REF RANGE LAB DIAGNOSIS: 02 NEGATIVE FOR INTRAEPITHELIAL LESION OR MALIGNANCY. Specimen adequacy: 02 Satisfactory for evaluation. Endocervical and/or squamous metaplastic cells (endocervical component) are present. Performed by: 02 Adelaida Bustamante, Logistics Engineer (ASCP) . 02 Note: Note 03 The [...] High,A-Abnormal,AA-Critical Abnormal Performed at: 02 K[facility]YT [facility] [address] [place] [address] Scott Sandoval MD, 03 WB [facility] [address] [address] Farzana Hennessy MD, BROOM-ALONE CERVIX ENDOCERVIX [facility] Urinalysis macro (dipstick) panel (U)on 01-28-2024 Bilirubin, UA Negative Negative - 4(70) +++ mg/dL [facility] Blood, UA Negative Negative - 50 Kranthi/mcL [facility] Clarity, UA Clear [facility] Color, UA Dark Tania [facility] Glucose, UA Negative Negative - 1999(110) ++++ mg/dL [facility] Interpretation and review of laboratory results Abnormal [facility] Ketones, UA Negative Negative - 160(16) ++++ mg/dL [facility] Leukocytes, UA Trace Negative - 500+++ Radha/mcL [facility] Nitrite, UA Negative Negative - Positive [facility] pH, UA 5.5 5 - 9 [facility] Protein, UA Negative Negative - 1999(20) ++++ mg/dL [facility] Spec Grav, UA 1.025 1 - 1.03 [facility] Urobilinogen, UA 0.2 0.2 - 12 mg/dL [facility] MHPT CULT,URINEon 01-23-2024 Interpretation and review of laboratory results [facility] Specimen Description .CLEAN CATCH URINE [facility] Culture ESCHERICHIA COLI >100,000 CFU/ML Abnormal [facility] STREPTOCOCCI, BETA HEMOLYTIC GROUP B 10 to 50,000 CFU/ML Abnormal [facility] Report Status FINAL 01/23/2024 [facility] MHPT CULT,URINE SUSCEPTIBILITY [facility] MHPT CULT,URINE Organism ESCHERICHIA COLI [facility] Method CROW [facility]INE Ampicillin [address] Cefazolin <=[address] [facility] Cefazolin sensitivit y results can be used to predict the effectiveness of oral Susceptible [facility] cephalosporins (eg. Cephalexin) in uncomplicated Urinary Tract Infections due Susceptible [facility] MHPT CULT,URINE to E. coli, K. pneumoniae, and P. mirabilis Susceptible [facility] Ceftriaxone <=0.[address] [facility] Negative Susceptible [facility] Gentamicin <=[address] [facility] Levofloxacin <=0.[address] [facility] Nitrofurantoin <=[address] [facility] Piperacillin/Tazobac ta m <=[address] [facility] Tobramycin <=[address] [facility] Trimethoprim/Sulfa <=20 SUSCEPTIBLE Susceptible [facility] Original Ordering Provider: RICHA DAVENPORT [facility] ALL BASIC METABOLIC PANELon 01-05-2024 Anion gap [Moles/Vol] 11.1 mmol/L [facility] Calcium [Mass/Vol] 9.2 mg/dL 8.5 - 10. 1 mg/dL [facility] Chloride [Moles/Vol] 105 mmol/L 98 - 10 7 mmol/L [facility] CO2 [Moles/Vol] 28.0 mmol/L 21.0 - 32.0 mmol/L [facility] Creatinine [Mass/Vol] 1.08 mg/dL High 0.55 - 1.02 mg/dL [facility] GFR/1.73 sq M.predicted CKD-EPI (S/P/Bld) [Vol rate/Area] >60 60 - PINF [facility] Glucose [Mass/Vol] 92 mg/dL 74 - 106 mg/dL [facility] Interpretation and review of laboratory results Abnormal [facility] Potassium [Moles/Vol] 4.1 mmol/L 3.5 - 5.1 mmol/L [facility] Sodium [Moles/Vol] 140 mmol/L 136 - 145 mmol/L [facility] TBH EGFR-NON AF [place] 51 Low 60 - PINF [facility] Urea nitrogen [Mass/Vol] 17.0 mg/dL 7.0 - 18.0 mg/dL [facility] Urea nitrogen/Creatinine [Mass ratio] 15.7 mg/mg [facility] Amphetamine Screen Ql (U)Ord ered By: Jace Graham on 03-23-2023 Amphetamines Ql (U) Negative Negative [facility] Barbiturates [Presence] in U rine by Screen methodOrdered By: Jace Graham on 03-23-2023 Barbiturates Screen Ql (U) Negative Negative [facility] Benzodiazepines Screen Ql (U )Ordered By: Jace Graham on 03-23-2023 Benzodiazepines Ql (U) Negative Negative [facility] Benzoylecgonine [Presence] i n Urine by Screen methodOrdered By: Jace Graham on 03-23-2023 Benzoylecgonine Screen Ql (U) Negative Negative [facility] Cannabinoids [Presence] in U rine by Screen methodOrdered By: Jace Graham on 03-23-2023 Cannabinoids Screen Ql (U) Negative Negative [facility] Comment on above: These are unconfirme d results and should not be used for legal purposes. Drug Cut-Off Concentration: AMPH 1000 ng/mL ELKIN 200 ng/mL ATIYA 200 ng/mL COCM 300 ng/mL OP 300 ng/mL PCP 25 ng/mL THC 20 ng/mL Opiates [Presence] in Urine by Screen methodOrdered By: Jace Graham on 03-23-2023 Opiates Screen Ql (U) Negative Negative [facility] Phencyclidine Screen Ql (U)O rdered By: Jace Graham on 03-23-2023 Phencyclidine Ql (U) Negative Negative [facility] Cholesterol [Mass/volume] in Serum or PlasmaOrdered By: Eduardo Monk on 11-18-2022 Cholesterol [Mass/Vol] 159 mg/dL 140-200 [facility] Comment on above: Chol less than 200 m g/dl low riskChol 201-239 mg/dl borderline riskChol 240 mg/dl and greater high risk Cholesterol in LDL Calc [Mas s/Vol]Ordered By: Eduardo Monk on 11-18-2022 Cholesterol in LDL [Mass/Vol] 84 mg/dL 0-100 [facility] Comment on above: LDL ATP III CLASSIFI CATIONLDL less than 100 mg/dL OptimalLDL 100-129 mg/dL Near or above optimalLDL 130-159 mg/dL Borderline highLDL 160-189 mg/dL HighLDL greater than 189 mg/dL Very high Cholesterol in VLDL Calc [Ma ss/Vol]Ordered By: Eduardo Monk on 11-18-2022 Cholesterol in VLDL [Mass/Vol] 28 mg/dL [facility] Serum or plasma high density lipoprotein (HDL) cholesterol measurementOrdered By: Eduardo Monk on 11-18-2022 Cholesterol in HDL [Mass/Vol] 46 mg/dL 23-92 [facility] Comment on above: HDL CHOL ATP-III CLA SSIFICATION Cardiovascular RiskHDL > or equal to 60 mg/dL LOWHDL < 40 mg/dL HIGH Serum or plasma total choles terol/high density lipoprotein (HDL) cholesterol mass ratOrdered By: Eduardo Monk on 11-18-2022 Cholesterol.total/Chol esterol in HDL [Mass ratio] 3.5 {ratio} <5.0 [facility] Thyrotropin [Units/volume] i n Serum or PlasmaOrdered By: Eduardo Monk on 11-18-2022 TSH Qn 2.13 m[IU]/L 0.45-5.33 [facility] Triglyceride [Mass/volume] i n Serum or PlasmaOrdered By: Eduardo Monk on 11-18-2022 Triglyceride [Mass/Vol] 144 mg/dL 0-149 [facility] Comment on above: TRIG ATP III CLASSIF ICATIONTRIG less than 150 mg/dL NormalTRIG 150-199 mg/dL Borderline highTRIG 200-500 mg/dL High TRIG greater than 500 mg/dL Very highStandard traceable to the Center for Disease Conrtrol and Prevention (CDC) test method. Vitamin D+Metabolites [Mass/ volume] in Serum or PlasmaOrdered By: Eduardo Monk on 11-18-2022 Vitamin D+Metabolites [Mass/Vol] 50.4 ng/mL 30-100 [facility] Comment on above: VITAMIN D STATUS 25( OH)VITAMIN D RANGE (ng/mL) Deficient <20 Insufficient 20 to <30Sufficient 30 to 100Reference: Bin MF,Lakshmi NC, Cristian SMART, et al. Evaluation,treatment, and prevention of vitamin D deficiency; an Endocrine Society clinical practice guideline. JCEM. 2010; 96(7):1911-30. CBC AUTO DIFFon 07-25-2022 BASO # 0.1 103/ul Normal 0.0-0.1 [facility] Comment on above: Performed By: #### A 1C #### [facility] [address] [place] [address] Dr. Bebeto Alvarado Basophils/100 WBC (Bld) 0.6 % Normal 0.2-2.0 [facility] Comment on above: Performed By: #### A 1C #### [facility] [address] [place] [address] Dr. Bebeto Alvarado EO # 0.2 103/ul Normal 0.0-0.7 [facility] Comment on above: Performed By: #### A 1C #### [facility] [address] [place] [address] Dr. Bebeto Alvarado Eosinophils/100 WBC (Bld) 2.3 % Normal 0.9-7.0 [facility] Comment on above: Performed By: #### A 1C #### [facility] [address] [place] [address] Dr. Bebeto Alvarado Erythrocyte distribution width (RBC) [Ratio] 13.8 % Normal 11.0-15.0 [facility] Comment on above: Performed By: #### A 1C #### [facility] [address] [place] [address] Dr. Bebeto Alvarado Hematocrit (Bld) [Volume fraction] 41.2 % Normal 36.0-48.0 [facility] Comment on above: Performed By: #### A 1C #### [facility] [address] [place] [address] Dr. Bebeto Alvarado Hemoglobin (Bld) [Mass/Vol] 13.2 g/dL Normal 12.0-16.0 [facility] Comment on above: Performed By: #### A 1C #### [facility] [address] [place] [address] Dr. Bebeto Alvarado IG # 0.03 10e3/ul Normal 0.00-0.03 [facility] Comment on above: Performed By: #### A 1C #### [facility] [address] [place] [address] Dr. Bebeto Alvarado IG % 0.4 % Normal 0.0-0.5 [facility] Comment on above: Performed By: #### A 1C #### [facility] [facility] [address] [place] [address] Dr. Bebeto Alvarado LYMPH # 2.1 103/ul Normal 1.2-3.8 [facility] Comment on above: Performed By: #### A 1C #### [facility] [address] [place] [address] Dr. Bebeto Alvarado Lymphocytes/100 WBC (Bld) 25.9 % Normal 20.5-60.0 [facility] Comment on above: Performed By: #### A 1C #### [facility] [address] [place] [address] Dr. Bebeto Alvarado MANUAL DIFF REQ NO Normal [facility] Comment on above: Performed By: #### A 1C #### [facility] [address] [place] [address] Dr. Bebeto Alvarado MCH (RBC) [Entitic mass] 28.0 pg Normal 26.7-34.0 [facility] Comment on above: Performed By: #### A 1C #### [facility] [address] [place] [address] Dr. Bebeto Alvarado MCHC (RBC) [Mass/Vol] 32.0 g/dL Normal 29.9-35.2 [facility] Comment on above: Performed By: #### A 1C #### [facility] [address] [place] [address] Dr. Bebeto Alvarado MCV (RBC) [Entitic vol] 87.5 fL Normal 81.0-99.0 [facility] Comment on above: Performed By: #### A 1C #### [facility] [address] [place] [address] Dr. Bebeto Alvarado MONO # 0.5 103/ul Normal 0.3-0.8 [facility] Comment on above: Performed By: #### A 1C #### [facility] [address] [place] [address] Dr. Bebeto Alvarado Monocytes/100 WBC (Bld) 6.6 % Normal 1.7-12.0 [facility] Comment on above: Performed By: #### A 1C #### [facility] [address] [place] [address] Dr. Bebeto Alvarado NEUT # 5.1 103/ul Normal 1.4-6.5 [facility] Comment on above: Performed By: #### A 1C #### [facility] [address] [place] [address] Dr. Bebeto Alvarado Neutrophils/100 WBC (Bld) 64.2 % Normal 43.0-75.0 [facility] Comment on above: Performed By: #### A 1C #### [facility] [address] [place] [address] Dr. Bebeto Alvarado Platelet mean volume (Bld) [Entitic vol] 11.2 fL Normal 9.5-13.5 [facility] Comment on above: Performed By: #### A 1C #### [facility] [address] [place] [address] Dr. Bebeto Alvarado PLT 252 103/ul Normal 150-450 [facility] Comment on above: Performed By: #### A 1C #### [facility] [address] [place] [address] Dr. Bebeto Alvarado RBC 4.71 106/ul Normal 4.20-5.40 [facility] Comment on above: Performed By: #### A 1C #### [facility] [address] [place] [address] Dr. Bebeto Alvarado WBC 8.0 103/ul Normal 4.0-11.0 [facility] Comment on above: Performed By: #### A 1C #### [facility] [address] [address] [address] Bebeto Alvarado GLYCOHEMOGLOBIN A1Con 2022 ADA RECOMMENDATION SEE BELOW Normal [facility] Comment on above: Result Comment: ADA RECOMMENDED LIMIT 4.0 - 6.0 ADA THERAPEUTIC TARGET < 7.0 ACTION SUGGESTED > 7.0 Performed By: #### A 1C #### [facility] [address] [place] [address] Dr. Bebeto Alvarado Glucose [Mass/Vol] 114 mg/dL Normal [facility] Comment on above: Performed By: #### A 1C #### [facility] [address] [place] [address] Dr. Bebeto Alvarado HbA1c (Bld) [Mass fraction] 5.6 % Normal 4.5-6.2 [facility] Comment on above: Performed By: #### A 1C #### [facility] [address] [place] [address] Dr. Bebeto Alvarado IRONon 07-25-2022 Iron [Mass/Vol] 60.0 ug/dL Normal 50.0-170.0 [facility] Comment on above: Performed By: #### V ITB12, IRON #### [facility] [address] [place] [address] Dr. Bebeto Alvarado LIPID PROFILEon 07-25-2022 CHOL-HDL RATIO NORM SEE BELOW Normal [facility] Comment on above: Result Comment: 3.3 - 4.4 LOW RISK 4.4 - 7.1 AVERAGE RISK 7.1 - 11.0 MODERATE RISK >11.0 HIGH RISK Performed By: #### C MP, LIPID #### [facility] [address] [place] [address] Dr. Bebeto Alvarado Cholesterol [Mass/Vol] 144 mg/dL Normal <=200 [facility] Comment on above: Performed By: #### C MP, LIPID #### [facility] [address] [address] [address] Bebeto Alvarado Cholesterol in HDL [Mass/Vol] 39 mg/dL Critically low 40-60 [facility] Comment on above: Performed By: #### C MP, LIPID #### [facility] [address] [address] [address] Bebeto Alvarado Cholesterol in LDL [Mass/Vol] 74.6 mg/dL Normal [facility] Comment on above: Performed By: #### C MP, LIPID #### [facility] [address] [address] [address] Bebeto Alvarado Cholesterol.total/Chol esterol in HDL [Mass ratio] 3.7 {ratio} Normal [facility] Comment on above: Performed By: #### C MP, LIPID #### [facility] [address] [address] [address] Bebeto Alvarado HDL NORMAL > or = 60 mg/dl - LO W CARDIOVASCULAR RISK <40 mg/dl - HIGH CARDIOVASCULAR RISK Normal [facility] Comment on above: Performed By: #### C MP, LIPID #### [facility] [address] [address] [address] Bebeto Alvarado LDL CALC NORMAL SEE BELOW Normal [facility] Comment on above: Result Comment: <100 mg/dl OPTIMAL 100 - 129 mg/dl NEAR OR ABOVE OPTIMAL 130 - 159 mg/dl BORDERLINE HIGH 160 - 189 mg/dl HIGH >190 mg/dl VERY HIGH Performed By: #### C MP, LIPID #### [facility] [address] [address] [address] Bebeto Alvarado Triglyceride [Mass/Vol] 152 mg/dL Critically high <=150 [facility] Comment on above: Performed By: #### C MP, LIPID #### [facility] [address] [address] [address] Bebeto Alvarado VLDL CALC 30.4 mg/dL Normal [facility] Comment on above: Performed By: #### C MP, LIPID #### [facility] [address] [place] [address] Dr. Bebeto Alvarado PROF 14(COMP METB)on 023 Albumin [Mass/Vol] 3.7 g/dL Normal 3.4-5.0 [facility] Comment on above: Performed By: #### C MP, LIPID #### [facility] [address] [place] [address] Dr. Bebeto Alvarado Albumin/Globulin [Mass ratio] 0.9 {ratio} Normal [facility] Comment on above: Performed By: #### C MP, LIPID #### [facility] [address] [place] [address] Dr. Bebeto Alvarado ALP [Catalytic activity/Vol] 90 U/L Normal 46-116 [facility] Comment on above: Performed By: #### C MP, LIPID #### [facility] [address] [place] [address] Dr. Bebteo Alvarado ALT [Catalytic activity/Vol] 38 U/L Normal 14-59 [facility] Comment on above: Performed By: #### C MP, LIPID #### [facility] [address] [place] [address] Dr. Bebeto Alvarado Anion gap [Moles/Vol] 12.1 mmol/L Normal [facility] Comment on above: Performed By: #### C MP, LIPID #### [facility] [address] [place] [address] Dr. Bebeto Alvarado AST [Catalytic activity/Vol] 26 U/L Normal 15-37 [facility] Comment on above: Performed By: #### C MP, LIPID #### [facility] [address] [place] [address] Dr. Bebeto Alvarado Bilirubin [Mass/Vol] 0.3 mg/dL Normal 0.2-1.0 [facility] Comment on above: Performed By: #### C MP, LIPID #### [facility] [address] [place] [address] Dr. Bebeto Alvarado Calcium [Mass/Vol] 9.3 mg/dL Normal 8.5-10.1 [facility] Comment on above: Performed By: #### C MP, LIPID #### [facility] [address] [address] [address] Bebeto Alvarado Chloride [Moles/Vol] 107 mmol/L Normal 98-107 [facility] Comment on above: Performed By: #### C MP, LIPID #### [facility] [address] [address] [address] Bebeto Alvarado CO2 [Moles/Vol] 27.9 mmol/L Normal 21.0-32.0 [facility] Comment on above: Performed By: #### C MP, LIPID #### [facility] [address] [address] [address] Bebeto Alvarado Creatinine [Mass/Vol] 0.95 mg/dL Normal 0.55-1.02 [facility] Comment on above: Performed By: #### C MP, LIPID #### [facility] [address] [place] [address] Dr. Bebeto Alvarado EGFR-AF [place] >60 Normal >=60 [facility] Comment on above: Performed By: #### C MP, LIPID #### [facility] [address] [place] [address] Dr. Bebeto Alvarado EGFR-NON AF [place] 60 mL/min/1.73m2 Normal >=60 [facility] Comment on above: Performed By: #### C MP, LIPID #### [facility] [address] [place] [address] Dr. Bebeto Alvarado Globulin (S) [Mass/Vol] 3.9 g/dL Normal [facility] Comment on above: Performed By: #### C MP, LIPID #### [facility] [address] [address] [address] Bebeto Alvarado Glucose [Mass/Vol] 108 mg/dL Critically high 74-106 [facility] Comment on above: Performed By: #### C MP, LIPID #### [facility] [address] [place] [address] Dr. Bebeto Alvarado Potassium [Moles/Vol] 4.0 mmol/L Normal 3.5-5.1 [facility] Comment on above: Performed By: #### C MP, LIPID #### [facility] [address] [place] [address] Dr. Bebeto Alvarado Protein [Mass/Vol] 7.6 g/dL Normal 6.4-8.2 [facility] Comment on above: Performed By: #### C MP, LIPID #### [facility] [address] [place] [address] Dr. Bebeto Alvarado Sodium [Moles/Vol] 143 mmol/L Normal 136-145 [facility] Comment on above: Performed By: #### C MP, LIPID #### [facility] [address] [place] [address] Dr. Bebeto Alvarado Urea nitrogen [Mass/Vol] 15.0 mg/dL Normal 7.0-18.0 [facility] Comment on above: Performed By: #### C MP, LIPID #### [facility] [address] [place] [address] Dr. Bebeto Alvarado Urea nitrogen/Creatinine [Mass ratio] 15.8 mg/mg Normal [facility] Comment on above: Performed By: #### C MP, LIPID #### [facility] [address] [place] [address] Dr. Bebeto Alvarado UA RANDOM W/MICROSCOPICon BACTERIA NONE SEEN Normal NONE SEEN [facility] Comment on above: Performed By: #### A 1C #### [facility] [address] [place] [address] Dr. Bebeto Alvarado Bilirubin Ql (U) Negative Normal NEGATIVE [facility] Comment on above: Performed By: #### A 1C #### [facility] [address] [place] [address] Dr. Bebeto Alvarado CAST NONE SEEN Normal NONE SEEN [facility] Comment on above: Performed By: #### A 1C #### [facility] [address] [place] [address] Dr. Bebeto Alvarado Clarity (U) CLEAR Normal CLEAR [facility] Comment on above: Performed By: #### A 1C #### [facility] [address] [place] [address] Dr. Bebeto Alvarado Color (U) YELLOW Normal YELLOW [facility] Comment on above: Performed By: #### A 1C #### [facility] [address] [address] [address] Bebeto Alvarado Crystals LM Nom (Urine sed) NONE SEEN Normal NONE SEEN [facility] Comment on above: Performed By: #### A 1C #### [facility] [address] [address] [address] Bebeto Alvarado Epithelial cells LM Ql (Urine sed) NONE SEEN Normal NONE SEEN /RARE [facility] Comment on above: Performed By: #### A 1C #### [facility] [address] [address] [address] Bebeto Alvarado Glucose Ql (U) Negative Normal NEGATIVE [facility] Comment on above: Performed By: #### A 1C #### [facility] [address] [place] [address] Dr. Bebeto Alvarado Hemoglobin Ql (U) Negative Normal NEGATIVE [facility] Comment on above: Performed By: #### A 1C #### [facility] [address] [place] [address] Dr. Bebeto Alvarado Ketones Ql (U) Negative Normal NEGATIVE [facility] Comment on above: Performed By: #### A 1C #### [facility] [address] [place] [address] Dr. Bebeto Alvarado LEUKOCYTES Negative Normal NEGATIVE [facility] Comment on above: Performed By: #### A 1C #### [facility] [address] [place] [address] Dr. Bebeto Alvarado MUCOUS NONE SEEN Normal NONE SEEN [facility] Comment on above: Performed By: #### A 1C #### [facility] [address] [place] [address] Dr. Bebeto Alvarado Nitrite Ql (U) Negative Normal NEGATIVE [facility] Comment on above: Performed By: #### A 1C #### [facility] [address] [place] [address] Dr. Bebeto Alvarado pH (U) 5.5 [pH] Normal 5-9 [facility] Comment on above: Performed By: #### A 1C #### [facility] [address] [place] [address] Dr. Bebeto Alvarado RBC NONE SEEN Abnormal 0-2 [facility] Comment on above: Performed By: #### A 1C #### [facility] [address] [place] [address] Dr. Bebeto Alvarado SPEC GRAVITY 1.030 Abnormal 1.005-<=1.02 5 [facility] Comment on above: Performed By: #### A 1C #### [facility] [address] [place] [address] Dr. Bebeto Alvarado UA PROTEIN Negative Normal NEGATIVE/ TRACE [facility] Comment on above: Performed By: #### A 1C #### [facility] [address] [place] [address] Dr. Bebeto Alvarado Urobilinogen Qn (U) 0.2 {Katerin'U}/dL Normal 0.2 - 1. 0 [facility] Comment on above: Performed By: #### A 1C #### [facility] [address] [place] [address] Dr. Bebeto Alvarado WBC NONE SEEN Normal NONE SEEN [facility] Comment on above: Performed By: #### A 1C #### [facility] [address] [place] [address] Dr. Bebeto Alvarado VITAMIN B12on 07-25-2022 Cobalamin (Vitamin B12) [Mass/Vol] 1684.0 pg/mL Critically high 193.0-986.0 [facility] Comment on above: Performed By: #### V ITB12, IRON #### [facility] [address] [place] [address] Dr. Bebeto Alvarado PROF CHEM 8 (BAS METB)on Anion gap [Moles/Vol] 12.2 mmol/L Normal [facility] Comment on above: Performed By: #### B MP #### [facility] [address] [place] [address] Dr. Bebeto Alvarado Calcium [Mass/Vol] 8.9 mg/dL Normal 8.5-10.1 [facility] Comment on above: Performed By: #### B MP #### [facility] [address] [address] [address] Bebeto Alvarado Chloride [Moles/Vol] 105 mmol/L Normal 98-107 [facility] Comment on above: Performed By: #### B MP #### [facility] [address] [address] [address] Bebeto Alvarado CO2 [Moles/Vol] 29.6 mmol/L Normal 21.0-32.0 [facility] Comment on above: Performed By: #### B MP #### [facility] [address] [address] [address] Bebeto Alvarado Creatinine [Mass/Vol] 0.95 mg/dL Normal 0.55-1.02 [facility] Comment on above: Performed By: #### B MP #### [facility] [address] [place] [address] Dr. Bebeto Alvarado EGFR-AF [place] >60 Normal >=60 [facility] Comment on above: Performed By: #### B MP #### [facility] [address] [address] [address] Bebeto Alvarado EGFR-NON AF [place] 60 mL/min/1.73m2 Normal >=60 [facility] Comment on above: Performed By: #### B MP #### [facility] [address] [address] [address] Bebeto Alvarado Glucose [Mass/Vol] 101 mg/dL Normal 74-106 [facility] Comment on above: Performed By: #### B MP #### [facility] [address] [address] [address] Bebeto Alvarado Potassium [Moles/Vol] 3.8 mmol/L Normal 3.5-5.1 [facility] Comment on above: Performed By: #### B MP #### [facility] [address] [place] [address] Dr. Bebeto Alvarado Sodium [Moles/Vol] 143 mmol/L Normal 136-145 [facility] Comment on above: Performed By: #### B MP #### [facility] [address] [address] [address] Bebeto Alvarado Urea nitrogen [Mass/Vol] 16.0 mg/dL Normal 7.0-18.0 [facility] Comment on above: Performed By: #### B MP #### [facility] [address] [place] [address] Dr. Bebeto Alvarado Urea nitrogen/Creatinine [Mass ratio] 16.8 mg/mg Normal [facility] Comment on above: Performed By: #### B MP #### [facility] [address] [place] [address] Dr. Bebeto Alvarado CBC AUTO DIFFon 11-21-2021 BASO # 0.1 103/ul Normal 0.0-0.1 [facility] Comment on above: Performed By: #### A 1C #### [facility] [address] [place] [address] Dr. Bebeto Alvarado Basophils/100 WBC (Bld) 1.0 % Normal 0.2-2.0 [facility] Comment on above: Performed By: #### A 1C #### [facility] [address] [place] [address] Dr. Bebeto Alvarado EO # 0.2 103/ul Normal 0.0-0.7 [facility] Comment on above: Performed By: #### A 1C #### [facility] [address] [place] [address] Dr. Bebeto Alvarado Eosinophils/100 WBC (Bld) 3.3 % Normal 0.9-7.0 [facility] Comment on above: Performed By: #### A 1C #### [facility] [address] [place] [address] Dr. Bebeto Alvarado Erythrocyte distribution width (RBC) [Ratio] 13.8 % Normal 11.0-15.0 [facility] Comment on above: Performed By: #### A 1C #### [facility] [address] [place] [address] Dr. Bebeto Alvarado Hematocrit (Bld) [Volume fraction] 38.8 % Normal 36.0-48.0 [facility] Comment on above: Performed By: #### A 1C #### [facility] [address] [place] [address] Dr. Bebeto Alvarado Hemoglobin (Bld) [Mass/Vol] 12.5 g/dL Normal 12.0-16.0 [facility] Comment on above: Performed By: #### A 1C #### [facility] [address] [place] [address] Dr. Bebeto Alvarado IG # 0.02 10e3/ul Normal 0.00-0.03 [facility] Comment on above: Performed By: #### A 1C #### [facility] [address] [place] [address] Dr. Bebeto Alvarado IG % 0.3 % Normal 0.0-0.5 [facility] Comment on above: Performed By: #### A 1C #### [facility] [address] [place] [address] Dr. Bebeto Alvarado LYMPH # 1.9 103/ul Normal 1.2-3.8 [facility] Comment on above: Performed By: #### A 1C #### [facility] [address] [place] [address] Dr. Bebeto Alvarado Lymphocytes/100 WBC (Bld) 29.6 % Normal 20.5-60.0 [facility] Comment on above: Performed By: #### A 1C #### [facility] [address] [place] [address] Dr. Bebeto Alvarado MANUAL DIFF REQ NO Normal [facility] Comment on above: Performed By: #### A 1C #### [facility] [address] [place] [address] Dr. Bebeto Alvarado MCH (RBC) [Entitic mass] 28.0 pg Normal 26.7-34.0 [facility] Comment on above: Performed By: #### A 1C #### [facility] [address] [place] [address] Dr. Bebeto Alvarado MCHC (RBC) [Mass/Vol] 32.2 g/dL Normal 29.9-35.2 [facility] Comment on above: Performed By: #### A 1C #### [facility] [address] [place] [address] Dr. Bebeto Alvarado MCV (RBC) [Entitic vol] 86.8 fL Normal 81.0-99.0 [facility] Comment on above: Performed By: #### A 1C #### [facility] [address] [place] [address] Dr. Bebeto Alvarado MONO # 0.4 103/ul Normal 0.3-0.8 [facility] Comment on above: Performed By: #### A 1C #### [facility] [address] [place] [address] Dr. Bebeto Alvarado Monocytes/100 WBC (Bld) 5.7 % Normal 1.7-12.0 [facility] Comment on above: Performed By: #### A 1C #### [facility] [address] [place] [address] Dr. Bebeto Alvarado NEUT # 3.8 103/ul Normal 1.4-6.5 [facility] Comment on above: Performed By: #### A 1C #### [facility] [address] [place] [address] Dr. Bebeto Alvarado Neutrophils/100 WBC (Bld) 60.1 % Normal 43.0-75.0 [facility] Comment on above: Performed By: #### A 1C #### [facility] [address] [place] [address] Dr. Bebeto Alvarado Platelet mean volume (Bld) [Entitic vol] 11.0 fL Normal 9.5-13.5 [facility] Comment on above: Performed By: #### A 1C #### [facility] [address] [place] [address] Dr. Bebeto Alvarado PLT 264 103/ul Normal 150-450 [facility] Comment on above: Performed By: #### A 1C #### [facility] [address] [place] [address] Dr. Bebeto Alvarado RBC 4.47 106/ul Normal 4.20-5.40 [facility] Comment on above: Performed By: #### A 1C #### [facility] [address] [place] [address] Dr. Bebeto Alvarado WBC 6.3 103/ul Normal 4.0-11.0 [facility] Comment on above: Performed By: #### A 1C #### [facility] [address] [place] [address] Dr. Bebeto Alvarado GLYCOHEMOGLOBIN A1Con 2021 ADA RECOMMENDATION SEE BELOW Normal [facility] Comment on above: Result Comment: ADA RECOMMENDED LIMIT 4.0 - 6.0 ADA THERAPEUTIC TARGET < 7.0 ACTION SUGGESTED > 7.0 Performed By: #### A 1C #### [facility] [address] [address] [address] Bebeto Alvarado Glucose [Mass/Vol] 105 mg/dL Normal [facility] Comment on above: Performed By: #### A 1C #### [facility] [address] [place] [address] Dr. Bebeto Alvarado HbA1c (Bld) [Mass fraction] 5.3 % Normal 4.5-6.2 [facility] Comment on above: Performed By: #### A 1C #### [facility] [address] [place] [address] Dr. Bebeto Alvarado IRONon 11-21-2021 Iron [Mass/Vol] 59.0 ug/dL Normal 50.0-170.0 [facility] Comment on above: Performed By: #### A 1C #### [facility] [address] [place] [address] Dr. Bebeto Alvarado LIPID PROFILEon 11-21-2021 CHOL-HDL RATIO NORM SEE BELOW Normal [facility] Comment on above: Result Comment: 3.3 - 4.4 LOW RISK 4.4 - 7.1 AVERAGE RISK 7.1 - 11.0 MODERATE RISK >11.0 HIGH RISK Performed By: #### C MP, LIPID #### [facility] [address] [place] [address] Dr. Bebeto Alvarado Cholesterol [Mass/Vol] 139 mg/dL Normal <=200 [facility] Comment on above: Performed By: #### C MP, LIPID #### [facility] [address] [place] [address] Dr. Bebeto Alvarado Cholesterol in HDL [Mass/Vol] 35 mg/dL Critically low 40-60 [facility] Comment on above: Performed By: #### C MP, LIPID #### [facility] [address] [address] [address] Bebeto Alvarado Cholesterol in LDL [Mass/Vol] 69.6 mg/dL Normal [facility] Comment on above: Performed By: #### C MP, LIPID #### [facility] [address] [address] [address] Bebeto Alvarado Cholesterol.total/Chol esterol in HDL [Mass ratio] 4.0 {ratio} Normal [facility] Comment on above: Performed By: #### C MP, LIPID #### [facility] [address] [address] [address] Bebeto Alvarado HDL NORMAL > or = 60 mg/dl - LO W CARDIOVASCULAR RISK <40 mg/dl - HIGH CARDIOVASCULAR RISK Normal [facility] Comment on above: Performed By: #### C MP, LIPID #### [facility] [address] [place] [address] Dr. Bebeto Alvarado LDL CALC NORMAL SEE BELOW Normal [facility] Comment on above: Result Comment: <100 mg/dl OPTIMAL 100 - 129 mg/dl NEAR OR ABOVE OPTIMAL 130 - 159 mg/dl BORDERLINE HIGH 160 - 189 mg/dl HIGH >190 mg/dl VERY HIGH Performed By: #### C MP, LIPID #### [facility] [address] [place] [address] Dr. Bebeto Alvarado Triglyceride [Mass/Vol] 172 mg/dL Critically high <=150 [facility] Comment on above: Performed By: #### C MP, LIPID #### [facility] [address] [address] [address] Bebeto Alvarado VLDL CALC 34.4 mg/dL Normal [facility] Comment on above: Performed By: #### C MP, LIPID #### [facility] [address] [address] [address] Bebeto Alvarado PROF 14(COMP METB)on 022 Albumin [Mass/Vol] 3.8 g/dL Normal 3.4-5.0 [facility] Comment on above: Performed By: #### C MP, LIPID #### [facility] [address] [place] [address] Dr. Bebeto Alvarado Albumin/Globulin [Mass ratio] 1.1 {ratio} Normal [facility] Comment on above: Performed By: #### C MP, LIPID #### [facility] [address] [place] [address] Dr. Bebeto Alvarado ALP [Catalytic activity/Vol] 96 U/L Normal 46-116 [facility] Comment on above: Performed By: #### C MP, LIPID #### [facility] [address] [place] [address] Dr. Bebeto Alvarado ALT [Catalytic activity/Vol] 25 U/L Normal 14-59 [facility] Comment on above: Performed By: #### C MP, LIPID #### [facility] [address] [place] [address] Dr. Bebeto Alvarado Anion gap [Moles/Vol] 11.8 mmol/L Normal [facility] Comment on above: Performed By: #### C MP, LIPID #### [facility] [address] [place] [address] Dr. Bebeto Alvarado AST [Catalytic activity/Vol] 20 U/L Normal 15-37 [facility] Comment on above: Performed By: #### C MP, LIPID #### [facility] [address] [place] [address] Dr. Bebeto Alvarado Bilirubin [Mass/Vol] 0.4 mg/dL Normal 0.2-1.0 [facility] Comment on above: Performed By: #### C MP, LIPID #### [facility] [address] [place] [address] Dr. Bebeto Alvarado Calcium [Mass/Vol] 8.8 mg/dL Normal 8.5-10.1 [facility] Comment on above: Performed By: #### C MP, LIPID #### [facility] [address] [place] [address] Dr. Bebeto Alvarado Chloride [Moles/Vol] 106 mmol/L Normal 98-107 [facility] Comment on above: Performed By: #### C MP, LIPID #### [facility] [address] [place] [address] Dr. Bebeto Alvarado CO2 [Moles/Vol] 27.0 mmol/L Normal 21.0-32.0 [facility] Comment on above: Performed By: #### C MP, LIPID #### [facility] [address] [address] [address] Bebeto Alvarado Creatinine [Mass/Vol] 0.97 mg/dL Normal 0.55-1.02 [facility] Comment on above: Performed By: #### C MP, LIPID #### [facility] [address] [address] [address] Bebeto Alvarado EGFR-AF [place] >60 Normal >=60 [facility] Comment on above: Performed By: #### C MP, LIPID #### [facility] [address] [address] [address] Bebeto Alvarado EGFR-NON AF [place] 59 mL/min/1.73m2 Critically low >=60 [facility] Comment on above: Performed By: #### C MP, LIPID #### [facility] [address] [address] [address] Bebeto Alvarado Globulin (S) [Mass/Vol] 3.4 g/dL Normal [facility] Comment on above: Performed By: #### C MP, LIPID #### [facility] [address] [address] [address] Bebeto Alvarado Glucose [Mass/Vol] 103 mg/dL Normal 74-106 [facility] Comment on above: Performed By: #### C MP, LIPID #### [facility] [address] [address] [address] Bebeto Alvarado Potassium [Moles/Vol] 3.8 mmol/L Normal 3.5-5.1 [facility] Comment on above: Performed By: #### C MP, LIPID #### [facility] [address] [address] [address] Bebeto Alvarado Protein [Mass/Vol] 7.2 g/dL Normal 6.4-8.2 [facility] Comment on above: Performed By: #### C MP, LIPID #### [facility] [address] [address] [address] Bebeto Alvarado Sodium [Moles/Vol] 141 mmol/L Normal 136-145 [facility] Comment on above: Performed By: #### C MP, LIPID #### [facility] [address] [place] [address] Dr. Bebeto Alvarado Urea nitrogen [Mass/Vol] 11.0 mg/dL Normal 7.0-18.0 [facility] Comment on above: Performed By: #### C MP, LIPID #### [facility] [address] [place] [address] Dr. Bebeto Alvarado Urea nitrogen/Creatinine [Mass ratio] 11.3 mg/mg Normal [facility] Comment on above: Performed By: #### C MP, LIPID #### [facility] [address] [place] [address] Dr. Bebeto Alvarado URIC ACID SERUMon 11-21-2021 Urate [Mass/Vol] 7.3 mg/dL Critically high 2.6-6.0 [facility] Comment on above: Performed By: #### A 1C #### [facility] [address] [place] [address] Dr. Bebeto Alvarado VITAMIN B12on 11-21-2021 Cobalamin (Vitamin B12) [Mass/Vol] 2123.0 pg/mL Critically high 193.0-986.0 [facility] Comment on above: Performed By: #### A 1C #### [facility] [address] [place] [address] Dr. Bebeto Alvarado Physician Referralon 022 Physician Referral [id number] Normal [facility] KNEE RIGHT 1 OR 2 VWSon KNEE RIGHT 1 OR 2 VWS [facility] Department of Radiology [address] [place] [id number] ======== Patient Name: MICHELLE BE : 1960 Sex: F Age: Race: White Pt. Location: 84 Patient Status: O Ordered Date: 02/08/2019 10:40:00 AM Completed Date: 02/08/2019 10:38 AM Requesting Provider: AHSAN BINGHAM Attending Provider: AHSAN BINGHAM Report Copy To: Signs & Symptoms: S82.001A Unsp fracture of right patella, init for clos fx I10 History: [place] Comments: , , , Ordering Provider - AHSAN IBNGHAM PA-C , Exam: KNEE RIGHT 1 OR [...] Electronically signed by:Debra Del Cid. Transcribed by: [email or web address], User Resident: Electronically Signed by: DEBRA DEL CID @ 02/08/2019 11:16 AM Normal [facility] Comment on above: Order Comment: , Vie ws (X-RAY, KNEE): Radiologic Protocol , Weight Bearing?: N , With or Without Brace/Cast/Collar: With , Views (X-RAY, KNEE): Radiologic Protocol , Weight Bearing?: N , With or Without Brace/Cast/Collar: With , , , Ordering Provider - AHSAN BINGHAM PA-C , KNEE RIGHT 1 OR [address] [facility] KNEE RIGHT 1 OR 2 S [facility] Department of Radiology [address] [place] [phone] ======== Patient Name: MICHELLE BE : 1960 Sex: F Age: Race: White Pt. Location: Patient Status: Ordered Date: 12/07/2018 10:20:00 AM Completed Date: 12/07/2018 10:20 AM Requesting Provider: AHSAN BINGHAM Attending Provider: Report Copy To: Signs & Symptoms: S82.001A Unsp fracture of right patella, init for clos fx I10 History: [place] Comments: , , , Ordering Provider - [...] complications. Electronically signed by:Tomasz Stoll. Transcribed by: [email or web address], User Resident: Electronically Signed by: TOMASZ STOLL @ 12/07/2018 11:14 AM Normal [facility] Comment on above: Order Comment: , Vie ws (X-RAY, KNEE): Radiologic Protocol , Weight Bearing?: N , With or Without Brace/Cast/Collar: With , Views (X-RAY, KNEE): Radiologic Protocol , Weight Bearing?: N , With or Without Brace/Cast/Collar: With , , , Ordering Provider - AHSAN BINGHAM PA-C , KNEE RIGHT 1 OR [address] [facility] KNEE RIGHT 1 OR 2 [facility] Department of Radiology [address] [place] [phone] ======== Patient Name: MICHELLE BE : 1960 Sex: F Age: Race: White Pt. 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 Transcribed by: [email or web address], User Resident: Electronically Signed by: ANUP ELLISON @ 10/06/2018 02:48 PM Normal [facility] Comment on above: Order Comment: , Mabel ws (X-RAY, KNEE): Radiologic Protocol , Weight Bearing?: N , With or Without Brace/Cast/Collar: With , Views (X-RAY, KNEE): Radiologic Protocol , Weight Bearing?: N , With or Without Brace/Cast/Collar: With , , , Ordering Provider - AHSAN BINGHAM PA-C , [facility] 1 OR 2 VWS [facility] Department of Radiology [address] [place] [phone] ======== Patient Name: MICHELLE BE : 1960 Sex: F Age: Race: White Pt. Location: 84 Patient Status: Ordered Date: 08/26/2018 2:30:00 PM Completed Date: 08/26/2018 02:54 PM Requesting Provider: AHSAN BINGHAM Attending Provider: Report Copy To: Signs & Symptoms: S82.001A Unsp fracture of right patella, init for clos fx I10 History: [place] Comments: , , , Ordering Provider - [...] effusion Electronically signed by:Anup Ellison. Transcribed by: [email or web address], User Resident: Electronically Signed by: ANUP ELLISON @ 08/26/2018 04:56 PM Normal [facility] Comment on above: Order Comment: , Vie ws (X-RAY, KNEE): Radiologic Protocol , Weight Bearing?: N , With or Without Brace/Cast/Collar: With , Views (X-RAY, KNEE): Radiologic Protocol , Weight Bearing?: N , With or Without Brace/Cast/Collar: With , , , Ordering Provider - AHSAN BINGHAM PA-C , KNEE RIGHT 1 OR [address] [facility] 07-06 KNEE RIGHT 1 OR 2 S [facility] Department of Radiology [address] [place] [phone] ======== Patient Name: MICHELLE BE : [...] compartment Electronically signed by:Anup Ellison. Transcribed by: [email or web address], User Resident: Electronically Signed by: ANUP ELLISON @ 07/29/2018 03:41 PM Normal [facility] Comment on above: Order Comment: , Mabel ws (X-RAY, KNEE): Radiologic Protocol , Weight Bearing?: N , With or Without Brace/Cast/Collar: With , Views (X-RAY, KNEE): Radiologic Protocol , Weight Bearing?: N , With or Without Brace/Cast/Collar: With , , , Ordering Provider - AHSAN BINGHAM PA-C , KNEE RIGHT 3 Son 9 KNEE RIGHT 3 VWS [facility] Department of Radiology [address] [place] [phone] ======== Patient Name: MICHELLE BE : 1960 Sex: F Age: Race: White Pt. Location: 84 Patient Status: Ordered Date: 07/15/2018 8:45:00 AM Completed Date: 07/15/2018 08:47 AM Requesting Provider: AHSAN BINGHAM Attending Provider: Report Copy To: Signs & Symptoms: S82.001A Unsp fracture of right patella, init for clos fx I10 History: [place] Comments: , , , Ordering Provider - AHSAN BINGHAM PA-C , Exam: KNEE RIGHT 3 [facility] ======== KNEE RIGHT 3 [facility] 07/15/2018 8:47 AM EDT SIGNS AND SYMPTOMS: [...] knee Electronically signed by:Anup Ellison. Transcribed by: [email or web address], User Resident: Electronically Signed by: ANUP ELLISON @ 07/15/2018 03:31 PM Normal [facility] Comment on above: Order Comment: , Vie ws (X-RAY, KNEE): Radiologic Protocol , Weight Bearing?: N , With or Without Brace/Cast/Collar: With , Views (X-RAY, KNEE): Radiologic Protocol , Weight Bearing?: N , With or Without Brace/Cast/Collar: With , , , Ordering Provider - AHSAN BINGHAM PA-C , Operative Reporton 9 Operative Report MR#: [id number] [facility] Pt. Name: Michelle Be Room #: 0C [...] Duarte MD Date Trans: 07/03/2018 04:28 A/mmo [id number] Normal [facility] *ANAEROBIC CULTUREon 019 *ANAEROBIC CULTURE Clinical Report: (D) Specimen/Source: SWAB/RT KNEE Collected: 07/02/2018 13:53 Status: Final Last Updated: 07/07/2018 08:02 CULT RES (Final) No Anaerobes Isolated 5 Days Normal [facility] Comment on above: Performed By: #### 3 0312 #### [address] *WOUND CULTUREon 07-02-2018 *WOUND CULTURE Clinical Report: (D) Specimen/Source: WOUND/INTRAOP SPEC Collected: 07/02/2018 13:53 Status: Final Last Updated: 07/07/2018 10:13 (1) #1 RT KNEE GRAM (Final) Rare Polys No Bacteria Seen CULT RES (Final) No Growth Day [address] [facility] Comment on above: Order Comment: #1 RT KNEE Performed By: #### 3 0343 #### [address] KNEE RIGHT 1 OR 2 VWSon 06-05 KNEE RIGHT 1 OR 2 S [facility] Department of Radiology [address] [place] [phone] ======== Patient Name: MICHELLE BE : [...] Electronically signed by:Debra Del Cid. Transcribed by: [email or web address], User Resident: Electronically Signed by: DEBRA DEL CID @ 07/02/2018 02:03 PM Normal [facility] Comment on above: Order Comment: ORIF VS PERCUTANEOUS FIXATION RIGHT PATELLA POC GLUCOSE LABon 07-02-2018 Glucose [Mass/Vol] 108 mg/dL High 70-100 [facility] Comment on above: Performed By: #### 8 5499 #### [facility] [address] [place] [address], [facility] APTTon 06-30-2018 aPTT Coag (Bld) [Time] 30.6 s Normal 25.0-35.0 [facility] Comment on above: Result Comment: ALL RESULTS [...] THIS PURPOSE. Performed By: #### 5 6101, [id number] #### [facility] [address] [place] [address], [facility] BASIC METABOLIC PANELon 06-05 Calcium [Mass/Vol] 9.7 mg/dL Normal 8.6-10.3 [facility] Comment on above: Performed By: #### 0 0071 #### [facility] [address] [place] [id number], [facility] Chloride [Moles/Vol] 102 mmol/L Normal 98-107 [facility] Comment on above: Performed By: #### 0 0071 #### [facility] [address] [place] [address], [place] CO2 [Moles/Vol] 28 mmol/L Normal 21-31 [facility] Comment on above: Performed By: #### 0 0071 #### [facility] [address] [place] [address], [facility] Creatinine [Mass/Vol] 1.20 mg/dL Normal 0.60-1.20 [facility] Comment on above: Performed By: #### 0 0071 #### [facility] [address] [place] [address], [place] GFR/1.73 sq M predicted among blacks MDRD (S/P/Bld) [Vol rate/Area] 56 ml/min/1.73sq m Abnormal >60 [facility] Comment on above: Performed By: #### 0 0071 #### [facility] [address] [place] [address], [place] GFR/1.73 sq M predicted among non-blacks MDRD (S/P/Bld) [Vol rate/Area] 47 ml/min/1.73sq m Abnormal >60 [facility] Comment on above: Performed By: #### 0 0071 #### [facility] [address] [place] [address], [place] Glucose [Mass/Vol] 97 mg/dL Normal 70-100 [facility] Comment on above: Performed By: #### 0 0071 #### [facility] [address] Potassium [Moles/Vol] 4.1 mmol/L Normal 3.5-5.1 [facility] Comment on above: Performed By: #### 0 0071 #### [facility] [address] [facility]. [address] Sodium [Moles/Vol] 137 mmol/L Normal 136-145 [facility] Comment on above: Performed By: #### 0 0071 #### [facility] [address] Urea nitrogen [Mass/Vol] 19 mg/dL Normal 7-25 [facility] Comment on above: Performed By: #### 0 0071 #### [facility] [address] CBC W/DIFFon 06-30-2018 ABS BASOPHILS 0.1 10*3/uL Normal 0.0-0.2 [facility] Comment on above: Performed By: #### 5 010 #### [facility] [address] ABS IMM GRANS 0.0 10*3/uL Normal 0.0-0.2 [facility] Comment on above: Performed By: #### 5 3 #### [facility] [address] ABS NEUTROPHILS 6.4 10*3/uL Normal 1.6-7.6 [facility] Comment on above: Performed By: #### 5 102 #### [facility] [address] Basophils/100 WBC (Bld) 0.7 % Normal 0.0-1.0 [facility] Comment on above: Performed By: #### 5 3 #### [facility] [address] Eosinophils (Bld) [#/Vol] 0.2 10*3/uL Normal 0.0-0.5 [facility] Comment on above: Performed By: #### 5 0103 #### [facility] [address] [place] [address], [facility] Eosinophils/100 WBC (Bld) 1.5 % Normal 0.0-6.0 [facility] Comment on above: Performed By: #### 5 0103 #### [facility] [address] [facility] [place] [address], [facility] Erythrocyte distribution width (RBC) [Ratio] 14.4 % Normal 11.5-15.0 [facility] Comment on above: Performed By: #### 5 0103 #### [facility] [address] [place] [address], [facility] Hematocrit (Bld) [Volume fraction] 40.6 % Normal 36.0-45.0 [facility] Comment on above: Performed By: #### 5 0103 #### [facility] [address] [facility] [place] [address], [facility] Hemoglobin (Bld) [Mass/Vol] 13.3 g/dL Normal 12.0-15.0 [facility] Comment on above: Performed By: #### 5 0103 #### [facility] [address] [facility] [place] [address], [facility] IMMATURE GRANS 0.4 % Normal 0.0-1.0 [facility] Comment on above: Performed By: #### 5 0103 #### [facility] [address] [place] [address], [facility] Lymphocytes (Bld) [#/Vol] 2.6 10*3/uL Normal 1.2-4.0 [facility] Comment on above: Performed By: #### 5 3 #### [facility] [address] [place] [id number], [facility] Lymphocytes/100 WBC (Bld) 26.5 % Normal 20.0-45.0 [facility] Comment on above: Performed By: #### 5 0103 #### [facility] [address] [place] [address], [facility] MCH (RBC) [Entitic mass] 27.4 pg Normal 27.0-33.0 [facility] Comment on above: Performed By: #### 5 0103 #### [facility] [address] [facility] [place] [address], [facility] MCHC (RBC) [Mass/Vol] 32.8 g/dL Normal 32.0-35.0 [facility] Comment on above: Performed By: #### 5 0103 #### [facility] [address] [facility] [place] [address], [facility] MCV (RBC) [Entitic vol] 83.5 fL Normal 82.0-98.0 [facility] Comment on above: Performed By: #### 5 0103 #### [facility] [address] [facility] [place] [address], [facility] Monocytes (Bld) [#/Vol] 0.5 10*3/uL Normal 0.1-1.0 [facility] Comment on above: Performed By: #### 5 0103 #### [facility] [address] [facility] [place] [address], [facility] MONOS 5.0 % Normal 5.0-12.0 [facility] Comment on above: Performed By: #### 5 0103 #### [facility] [address] [place] [address], [facility] Neutrophils/100 WBC (Bld) 65.9 % Normal 40.0-72.0 [facility] Comment on above: Performed By: #### 5 3 #### [facility] [address] [place] [address], [facility] Nucleated RBC/100 WBC (Bld) [Ratio] 0 % Normal 0-0 [facility] Comment on above: Performed By: #### 5 0103 #### [facility] [address] [facility]. [address] PLAT CNT 290 10*3/uL Normal 150-400 [facility] Comment on above: Performed By: #### 5 0103 #### [facility] [address] [place] [address], [facility] RBC (Bld) [#/Vol] 4.86 10*6/uL Normal 3.80-5.00 [facility] Comment on above: Performed By: #### 5 0103 #### [facility] [address] [place] [address], [facility] WBC (Bld) [#/Vol] 9.68 10*3/uL Normal 4.00-10.60 [facility] Comment on above: Performed By: #### 5 0103 #### [facility] [address] KNEE RIGHT 1 OR 2 VWSon - KNEE RIGHT 1 OR 2 VWS [facility] Department of Radiology [address] [place] [phone] ======== Patient Name: MICHELLE BE : 1960 Sex: F Age: Race: White Pt. 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 Transcribed by: [email or web address], User Resident: Electronically Signed by: DEBRA DEL CID @ 06/30/2018 11:52 AM [facility] Comment on above: Order Comment: , Mabel ws (X-RAY, KNEE): Radiologic Protocol , Weight Bearing?: N , With or Without Brace/Cast/Collar: With , Views (X-RAY, KNEE): Radiologic Protocol , Weight Bearing?: N , With or Without Brace/Cast/Collar: With , , , Ordering Provider - AHSAN BINGHAM PA-C , PROTHROMBIN TIMEon 9 INR Coag (PPP) [Relative time] 0.98 {INR} Normal 0.91-1.[address] [facility] Comment on above: Result Comment: ACCC [...] CHEST 1995;108:231S-246S. Performed By: #### 5 6101, [id number] #### [address] PT Coag (PPP) [Time] 13.0 s Normal 12.3-14.8 [facility] Comment on above: Result Comment: ALL RESULTS MUST BE INTERPRETED WITH RESPECT TO BLOOD DRAWING ARTIFACT OR DILUTION ERROR OF ANTICOAGULANT AT THE TIME OF SAMPLING. Performed By: #### 5 6101, [id number] #### [address] KNEE RIGHT 3 VWSon 9 KNEE RIGHT 3 [facility] Department of Radiology [address] [place] [phone] ======== Patient Name: MICHELLE BE : 1960 Sex: F Age: Race: [address] Location: 84 Patient Status: O Ordered Date: 06/15/2018 1:35:00 PM Completed Date: 06/15/2018 01:34 PM Requesting Provider: AMPARO ZHANG Attending Provider: AMPARO ZHANG Report Copy To: ADELAIDA CARRION Signs & Symptoms: M17.11 Unilateral primary osteoarthritis, right knee I10 History: [place] Comments: , Weight Bearing?: Y , Weight [...] effusion Electronically signed by:Anup Ellison. Transcribed by: [email or web address], User Resident: Electronically Signed by: ANUP ELLISON @ 06/15/2018 03:50 PM Normal [facility] Comment on above: Order Comment: , Isaiah ght Bearing?: Y , Weight Bearing?: Y , , , Ordering Provider - AMPARO ZHANG PA-C , Vital Signs Date Time Vital Sign Value Performing Clinician Facility 03-16-2024 09:53-0500 Body height 162.6 cm Adelaida Sheyla [employer] Work Phone: [facility] 03-16-2024 09:53-0500 Body mass index (BMI) [Ratio] 48.41 kg/m2 Adelaida Sheyla [employer] Work Phone: [facility] 03-16-2024 09:53-0500 Body temperature 98.01 [degF] Adelaida Sheyla [employer]ER Work Phone: [facility] 03-16-2024 09:53-0500 Body weight 127.91 kg Adelaida Sheyla [employer]ER Work Phone: [facility] 03-16-2024 09:53-0500 Diastolic blood pressure 80 mm[Hg] Adelaida Sheyla [employer]ER Work Phone: [facility] 03-16-2024 09:53-0500 Heart rate 79 /min 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 Phone: [facility] 03-16-2024 09:53-0500 Respiratory rate 18 /min Adelaida Sheyla [employer]INE T[employer]ER Work Phone: [facility] 03-16-2024 09:53-0500 SaO2% (BldA) [Mass fraction] 98 % 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 Phone: [facility] 03-16-2024 09:53-0500 Systolic blood pressure 120 mm[Hg] 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 Phone: [facility] 03-10-2024 15:20-0500 Body height 162.6 cm Rachel Mitchell PA Work Phone: [facility] 03-10-2024 15:20-0500 Body mass index (BMI) [Ratio] 48.41 kg/m2 Rachel Mitchell PA Work Phone: [facility] 03-10-2024 15:20-0500 Body weight 127.91 kg Rachel Mitchell PA Work Phone: [facility] 03-10-2024 15:20-0500 Diastolic blood pressure 68 mm[Hg] Rachel Mitchell PA Work Phone: [facility] 03-10-2024 15:20-0500 Heart rate 74 /min Rachel Mitchell PA Work Phone: [facility] 03-10-2024 15:20-0500 Respiratory rate 16 /min Rachelgeorgette Mitchell PA Work Phone: [facility] 03-10-2024 15:20-0500 SaO2% (BldA) [Mass fraction] 98 % Rachel Mitchell PA Work Phone: [facility] 03-10-2024 15:20-0500 Systolic blood pressure 102 mm[Hg] Rachel Mitchell PA Work Phone: [facility] 03-01-2024 12:48-0500 Body height 162.6 cm Juany Lowe PA Work Phone: [facility] 03-01-2024 12:48-0500 Body mass index (BMI) [Ratio] 48.92 kg/m2 Juany Lowe PA Work Phone: [facility] 03-01-2024 12:48-0500 Body weight 129.28 kg Juany Lowe PA Work Phone: [facility] 03-01-2024 12:48-0500 Diastolic blood pressure 88 mm[Hg] Juany Lowe PA Work Phone: [facility] 03-01-2024 12:48-0500 Systolic blood pressure 140 mm[Hg] Juany Kirbygeorgette PA Work Phone: [facility] 02-16-2024 11:18-0500 Body height 162.6 cm Adelaida Sheyla [employer] T[employer]ER Work Phone: [facility] 02-16-2024 11:18-0500 Body mass index (BMI) [Ratio] 50.77 kg/m2 Adelaida Sheyla [employer]ER Work Phone: [facility] 02-16-2024 11:18-0500 Body temperature 98.49 [degF] Adelaidamonse Carrion B[employer]INE T[employer]ER Work Phone: [facility] 02-16-2024 11:18-0500 Body weight 134.17 kg Adelaida Sheyla [employer]INE T[employer]ER Work Phone: [facility] 02-16-2024 11:18-0500 Diastolic blood pressure 82 mm[Hg] Adelaida Kelsiez [employer] MACHINE TENDER Work Phone: [facility] 02-16-2024 11:18-0500 Heart rate 69 /min Adelaida Kelsiez [employer] MACHINE T[employer]ER Work Phone: [facility] 02-16-2024 11:18-0500 Respiratory rate 20 /min Adelaida Kelsiez [employer] MACHINE TENDER Work Phone: [facility] 02-16-2024 11:18-0500 SaO2% (BldA) [Mass fraction] 98 % Adelaida Sheyla B[employer] MACHINE TENDER Work Phone: [facility] 02-16-2024 11:18-0500 Systolic blood pressure 122 mm[Hg] Adelaida Kelsiez B[employer] MAK[employer] MACHINE TENDER Work Phone: [facility] 01-28-2024 13:46-0400 Body height 162.6 cm Adelaida Sheyla [employer]INE T[employer]ER Work Phone: [facility] 01-28-2024 13:46-0400 Body mass index (BMI) [Ratio] 48.99 kg/m2 Adelaida Aichholz [employer] MACHINE TENDER Work Phone: [facility] 01-28-2024 13:46-0400 Body temperature 98.71 [degF] Adelaida Yingsherineholz B[employer] MACHINE TENDER Work Phone: [facility] 01-28-2024 13:46-0400 Body weight 129.46 kg Adelaida Merryholz B[employer] MACHINE TENDER Work Phone: [facility] 01-28-2024 13:46-0400 Diastolic blood pressure 78 mm[Hg] Adelaida Yingsherineholz B[employer] MACHINE T[employer]ER Work Phone: [facility] 01-28-2024 13:46-0400 Heart rate 81 /min Adelaida Yingalissaz [employer] M[employer]INE T[employer]ER Work Phone: [facility] 01-28-2024 13:46-0400 Respiratory rate 18 /min Adelaida Merrykushz [employer] MA[employer] MACHINE TENDER Work Phone: [facility] 01-28-2024 13:46-0400 SaO2% (BldA) [Mass fraction] 99 % Adelaida Merrykushz B[employer] MAKER MACHINE TENDER Work Phone: [facility] 01-28-2024 13:46-0400 Systolic blood pressure 110 mm[Hg] Adelaida Merryholz B[employer] MACHINE TENDER Work Phone: [facility] 01-04-2024 09:39-0400 Body height 162.6 cm Adelaida Yingalissaz [employer] M[employer]INE TENDER Work Phone: [facility] 01-04-2024 09:39-0400 Body mass index (BMI) [Ratio] 48.75 kg/m2 Adelaida Yingsherineholz [employer]INE TENDER Work Phone: [facility] 01-04-2024 09:39-0400 Body temperature 97.81 [degF] Adelaida Yingsherineholz [employer] M[employer]INE TENDER Work Phone: [facility] 01-04-2024 09:39-0400 Body weight 128.82 kg Adelaida Yinghholz B[employer] MACHINE TENDER Work Phone: [facility] 01-04-2024 09:39-0400 Diastolic blood pressure 78 mm[Hg] 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 Phone: [facility] 01-04-2024 09:39-0400 Heart rate 67 /min 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 Phone: [facility] 01-04-2024 09:39-0400 Respiratory rate 19 /min 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 Phone: [facility] 01-04-2024 09:39-0400 SaO2% (BldA) [Mass fraction] 99 % 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 Phone: [facility] 01-04-2024 09:39-0400 Systolic blood pressure 116 mm[Hg] 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 Phone: [facility] 12-09-2023 10:14-0400 Body height 162.6 cm Juany Samanthamor B[employer] MAK[employer] MACHINE TENDER Work Phone: [facility] 12-09-2023 10:14-0400 Body mass index (BMI) [Ratio] 48.92 kg/m2 Juany Gillmor B[employer] MAK[employer] MACHINE TENDER Work Phone: [facility] 12-09-2023 10:14-0400 Body weight 129.28 kg Juany Gillmor B[employer] MAK[employer] MACHINE TENDER Work Phone: [facility] 12-09-2023 10:14-0400 Diastolic blood pressure 78 mm[Hg] Juany Gillmor B[employer] MAKER MACHINE TENDER Work Phone: [facility] 12-09-2023 10:14-0400 SaO2% (BldA) [Mass fraction] 97 % Juany Gillmor BOW MAKER MACHINE TENDER Work Phone: [facility] 12-09-2023 10:14-0400 Systolic blood pressure 122 mm[Hg] Juany Gillmor BOW MAKER MACHINE TENDER Work Phone: [facility] 12-08-2023 15:24-0400 Body height 162.6 cm Sonam Brown B[employer] MAK[employer] MACHINE TENDER Work Phone: [facility] 12-08-2023 15:24-0400 Body mass index (BMI) [Ratio] 48.92 kg/m2 Sonam Brown [employer] MACHINE TENDER Work Phone: [facility] 12-08-2023 15:24-0400 Body weight 129.28 kg Sonam Brown B[employer] MAKER MACHINE TENDER Work Phone: [facility] 12-08-2023 15:24-0400 Diastolic blood pressure 77 mm[Hg] Sonam Franzgel B[employer] MAK[employer] MACHINE TENDER Work Phone: [facility] 12-08-2023 15:24-0400 Heart rate 72 /min Sonam Brown B[employer] MAK[employer] MACHINE TENDER Work Phone: [facility] 12-08-2023 15:24-0400 Systolic blood pressure 134 mm[Hg] Sonam Brown B[employer] MAK[employer] MACHINE TENDER Work Phone: [facility] 05-18-2023 16:30-0500 Body height 162.6 cm Adelaida Hejosue B[employer] MAKER MACHINE TENDER Work Phone: [facility] 05-18-2023 16:30-0500 Body mass index (BMI) [Ratio] 47.89 kg/m2 Adelaidamonse Healissaz B[employer] MACHINE TENDER Work Phone: [facility] 05-18-2023 16:30-0500 Body temperature 97.3 [degF] Adelaida Kelisez B[employer] MA[employer] MACHINE TENDER Work Phone: [facility] 05-18-2023 16:30-0500 Body weight 126.55 kg Adelaida Kelsiez B[employer] MAK[employer] MACHINE TENDER Work Phone: [facility] 05-18-2023 16:30-0500 Diastolic blood pressure 80 mm[Hg] Adelaida Kelsiez BOW MAK[employer] MACHINE TENDER Work Phone: [facility] 05-18-2023 16:30-0500 Heart rate 76 /min Adelaida Yinghholz B[employer] MA[employer] MACHINE TENDER Work Phone: [facility] 05-18-2023 16:30-0500 Respiratory rate 19 /min Adelaida Yinghholz B[employer] MAK[employer] MACHINE TENDER Work Phone: [facility] 05-18-2023 16:30-0500 SaO2% (BldA) [Mass fraction] 97 % Adelaida Aichholz B[employer] MACHINE TENDER Work Phone: [facility] 05-18-2023 16:30-0500 Systolic blood pressure 134 mm[Hg] Adelaida Aichholz B[employer] MAK[employer] MACHINE TENDER Work Phone: [facility] 03-23-2023 12:10-0500 Diastolic blood pressure 98 mm[Hg] Adelaida Aichholz Work Phone: [facility] 03-23-2023 12:10-0500 Heart rate 76 /min Adelaida Aichholz Work Phone: [facility] 03-23-2023 12:10-0500 Respiratory rate 18 /min Adelaida Aichholz Work Phone: [facility] 03-23-2023 12:10-0500 SaO2% (BldA) [Mass fraction] 99 % Adelaida Aichholz Work Phone: [facility] 03-23-2023 12:10-0500 Systolic blood pressure 162 mm[Hg] Adelaida Aichholz Work Phone: [facility] 03-23-2023 10:53-0500 Body height 162.56 cm Adelaida Aichholz Work Phone: [facility] 03-23-2023 10:53-0500 Body weight 125.64 kg Adelaida Aichholz Work Phone: [facility] 12-19-2022 14:55-0400 Body height 162.56 cm Rosemary Kirkland Other [employer] [facility] [employer] Other 12-19-2022 14:55-0400 Body mass index (BMI) [Ratio] 47.85 kg/m2 Rosemary Kirkland Other [employer] [facility] [employer] Other 12-19-2022 14:55-0400 Body temperature 97.8 [degF] Rosemary Kirkland Other [employer] Other 12-19-2022 14:55-0400 Body weight 126.46 kg Rosemary Kirkland Other [employer] Other 12-19-2022 14:55-0400 Respiratory rate 20 /min Rosemary Kirkland Other [employer] Other 12-19-2022 14:55-0400 SaO2% (BldA) [Mass fraction] 95 % Rosemary Kirkland Other [employer] Other 11-20-2022 13:12-0400 Body temperature 97.7 [degF] Adelaida Aichholz Work Phone: [facility] 11-20-2022 13:12-0400 SaO2% (BldA) [Mass fraction] 96 % Adelaida Aichholz Work Phone: [facility] 11-20-2022 07:44-0400 Diastolic blood pressure 90 mm[Hg] Adelaida Aichholz Work Phone: [facility] 11-20-2022 07:44-0400 Heart rate 103 /min Adelaida Aichholz Work Phone: [facility] 11-20-2022 07:44-0400 Systolic blood pressure 152 mm[Hg] Adelaida Aichholz Work Phone: [facility] 11-19-2022 20:00-0400 Respiratory rate 18 /min Adelaida Aichholz Work Phone: [facility] 11-18-2022 15:18-0400 Body height 162.56 cm Adelaida Aichholz Work Phone: [facility] 11-17-2022 09:00-0400 Body weight 122.92 kg Adelaida Aichholz Work Phone: [facility] Encounters Encounter Date Encounter Type [...] 03-16-2024 End: 03-16-2024 Bamboo flowsheet Adelaida Aichholz B[employer] MACHINE TENDER Work Phone: [facility] Start: 03-16-2024 End: 03-16-2024 Bamboo flowsheet Adelaida Aichholz B[employer] MAK[employer] MACHINE TENDER Work Phone: [facility] Start: 03-16-2024 End: 03-16-2024 Office outpatient visit 25 minutes Adelaida Aichkushz B[employer] MACHINE TENDER Work Phone: [facility] Comment on above: Metabolic encephalop athy (Primary Dx); OSMANY (obstructive sleep apnea); Morbid obesity (CMS/HCC); Bilateral lower extremity edema; Tobacco dependence; Bipolar disorder with severe depression (CMS/HCC); At risk for polypharmacy; Anxiety; Primary hypertension (CMS/HCC); Right bundle branch block (RBBB) determined by electrocardiography Start: 03-16-2024 End: 03-16-2024 ambulatory ADELAIDA AICHHOLZ Not Available Start: 03-15-2024 End: 03-16-2024 Telephone encounter David Norman MA [facility] Start: 03-14-2024 End: 03-14-2024 Bamboo flowsheet David Foster PhD Work Phone: [facility] Start: 03-14-2024 End: 03-14-2024 Bamboo flowsheet David Foster PhD Work Phone: [facility] Start: 03-14-2024 End: 03-14-2024 ambulatory DAVID FOSTER Not Available Start: 03-14-2024 End: 03-14-2024 Patient encounter procedure David Foster PhD Work Phone: [facility] Comment on above: Altered mental statu s, unspecified altered mental status type (Primary Dx); Memory change; Concentration deficit; 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 (CMS/HCC); PTSD (post-traumatic stress disorder) (CMS/HCC); Bipolar affective disorder, remission status unspecified (CMS/HCC); Family history of dementia Start: 03-10-2024 End: 03-10-2024 Office outpatient visit 25 minutes Rachel REDDY Work Phone: [facility] Comment on above: Altered mental statu s, unspecified altered mental status type (Primary Dx); Restless leg; 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CMS/HCC); OSMANY (obstructive sleep apnea) Start: 03-10-2024 End: 03-10-2024 ambulatory RACHEL MITCHELL Not Available Start: 03-09-2024 ambulatory Eduardo Monk Facility:[facility] Start: 03-03-2024 End: 03-07-2024 Evaluation and management of inpatient Adelaida Carrion Facility:[facility] Start: 03-02-2024 End: 03-04-2024 Clinisync Result Encounter Generic External Data Provider [facility] External Department Unsolicited Start: 03-02-2024 End: 03-04-2024 Clinisync Result Encounter Generic External Data Provider [facility] External Department Unsolicited Start: 03-02-2024 End: 03-02-2024 Refill Adelaida Carrion NP Work Phone: [facility] Comment on above: Yeast infection of t he skin Start: 03-01-2024 End: 03-01-2024 ambulatory JUANY LEGGETT Not Available Start: 03-01-2024 End: 03-01-2024 Office outpatient visit 25 minutes Juany Leggett PA Work Phone: [facility] [address] [facility] Comment on above: Metabolic encephalop athy (Primary Dx); OSMANY (obstructive sleep apnea); Restless leg; 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 (CMS/HCC); Degeneration of intervertebral disc of lumbar region with discogenic back pain and lower extremity pain; Memory change Start: 02-28-2024 End: 02-29-2024 Refill Adelaida Carrion NP Work Phone: [facility] Comment on above: Allergic rhinitis, u nspecified Start: 02-24-2024 End: 02-24-2024 Refill Adelaida Carrion NP Work Phone: [facility] Comment on above: Essential (primary) hypertension (CMS/HCC); Allergic rhinitis, unspecified Start: 02-16-2024 End: 02-16-2024 Bamboo flowsheet Adelaida Carrion NP Work Phone: [facility] Start: 02-16-2024 End: 02-23-2024 Clinisync Result Encounter Adelaida Carrion NP Work Phone: [facility] External Department Unsolicited Start: 02-16-2024 End: 02-23-2024 Clinisync Result Encounter Adelaida Carrion NP Work Phone: [facility] External Department Unsolicited Start: 02-16-2024 End: 02-16-2024 Patient encounter procedure Adelaida Carrion NP Work Phone: [facility] Start: 02-16-2024 End: 02-16-2024 Periodic preventive med est patient 40-64yrs Adelaida Carrion NP Work Phone: [facility] Comment on above: Well woman exam with routine gynecological exam (Primary Dx); Morbid obesity ([facility]/HCC) Start: 02-16-2024 End: 02-16-2024 ambulatory ADELAIDA SHEYLA Not Available Start: 02-04-2024 End: 02-04-2024 Refill Sonam Brown [employer]ACHINE [employer]ENDER Work Phone: [facility] [place] [address] Comment on above: Restless leg Start: 01-28-2024 End: 01-28-2024 Bamboo flowsheet 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 Phone: [facility] Start: 01-28-2024 End: 01-28-2024 Bamboo flowsheet 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 Phone: [facility] Start: 01-28-2024 End: 01-28-2024 Office outpatient visit 15 minutes 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 Phone: [facility] Comment on above: Acute cystitis witho ut hematuria (Primary Dx); Tobacco dependence; Needs flu shot; Morbid obesity ([facility]/HCC) Start: 01-28-2024 End: 01-28-2024 ambulatory ADELAIDA SHEYLA Not Available Start: 01-25-2024 End: 01-25-2024 ambulatory Syeda Mancuso MD Facility:[facility] Start: 01-21-2024 End: 01-25-2024 Clinisync Result Encounter Generic External Data Provider [facility] External Department Unsolicited Start: 01-21-2024 End: 01-25-2024 Clinisync Result Encounter Generic External Data Provider [facility] External Department Unsolicited Start: 01-05-2024 End: 01-05-2024 Clinisync Result Encounter 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 Phone: [facility] External Department Unsolicited Start: 01-05-2024 End: 01-05-2024 Clinisync Result Encounter 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 Phone: [facility] External Department Unsolicited Start: 01-04-2024 End: 01-04-2024 Bamboo flowsheet 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 Phone: [facility] Start: 01-04-2024 End: 01-04-2024 Bamboo flowsheet Adelaida Yingsherinerhonda B[employer] MAKER MACHINE TENDER Work Phone: [facility] Start: 01-04-2024 End: 01-04-2024 Office outpatient visit 25 minutes Adelaida Yingsherinerhonda B[employer] MAKER MACHINE TENDER Work Phone: [facility] Comment on above: Bilateral lower extr emity edema (Primary Dx); Essential (primary) hypertension (CMS/HCC); Allergic rhinitis, unspecified; OSMANY (obstructive sleep apnea); Primary hypertension (CMS/HCC); Morbid obesity (CMS/HCC) Start: 01-04-2024 End: 01-04-2024 ambulatory ADELAIDA SHEYLA Not Available Start: 12-30-2023 End: 12-30-2023 Refill Adelaida Sheyla [employer] MACHINE TENDER Work Phone: [facility] Comment on above: Lower extremity elis a Start: 12-09-2023 End: 12-09-2023 Office outpatient visit 25 minutes Juany Caballero B[employer] MAKER MACHINE TENDER Work Phone: [employer] [place] [address] Comment on above: OSMANY (obstructive sle ep apnea) (Primary Dx); Restless leg Start: 12-09-2023 End: 12-09-2023 ambulatory JUANYMonse CABALLERO Not Available Start: 12-08-2023 End: 12-08-2023 ambulatory SONAM C WINDNAGEL Not Available Start: 12-08-2023 End: 12-08-2023 Office outpatient visit 25 minutes Sonam C Windnagel B[employer] MAKER MACHINE TENDER Work Phone: [employer] [facility] [address] [facility] Comment on above: 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CMS /HCC) (Primary Dx); Restless leg; Metabolic encephalopathy Start: 12-08-2023 End: 12-08-2023 Bamboo flowsheet Sonam C Windnagel BOW MAKER MACHINE TENDER Work Phone: [employer] [facility] [address] Start: 12-08-2023 End: 12-08-2023 Bamboo flowsheet Sonam C Windnagel BOW MAKER MACHINE TENDER [facility] Start: 11-27-2023 End: 11-27-2023 Refill Adelaida Aichholz B[employer] MAKER MACHINE TENDER Work Phone: [facility] Comment on above: Yeast infection of t [...] Available Start: 06-29-2023 End: 06-29-2023 ambulatory Syeda Mnacuso MD Facility:[facility] Start: 05-22-2023 End: 05-22-2023 ambulatory ASHLEIGH HINES Not Available Start: 05-21-2023 Refill Adelaida Aichholz B[employer] MACHINE TENDER Work Phone: [facility] Comment on above: Acute cystitis with hematuria (Primary Dx) Start: 05-18-2023 End: 05-18-2023 Office outpatient visit 25 minutes Adelaida Aichholz B[employer] MACHINE TENDER Work Phone: [facility] Comment on above: Encounter for annual [...] Available Start: 05-18-2023 Bamboo flowsheet 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 Phone: [facility] Start: 05-18-2023 Bamboo flowsheet 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 Phone: [facility] Start: 05-18-2023 End: 05-18-2023 Patient encounter procedure 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 Phone: [facility] Start: 03-23-2023 End: 03-23-2023 Admission to same day surgery center Adelaida Carrion Work Phone: [facility] Work Phone: Start: 03-23-2023 End: 03-23-2023 ambulatory Adelaida Carrion Work Phone: [facility] Work Phone: Start: 02-12-2023 End: 02-12-2023 ambulatory Jace Graham Other [employer] Other Start: 02-12-2023 Telephone encounter Jace CORADO [employer] Start: 12-19-2022 End: 12-19-2022 ambulatory Rosemary Kirkland Other [place] [employer] Other Start: 12-19-2022 Office outpatient ne w 10 minutes Rosemary Kirkland [facility] Start: 11-17-2022 End: 11-20-2022 Evaluation and management of inpatient Adelaida Carrion Work Phone: [facility] [place] [address] Work Phone: Start: 09-04-2022 ambulatory ARIAN JOHNSON . Facili ty:H1 Start: 08-26-2022 ambulatory HERBERTH CRAMER . Facility:H1 Start: 08-08-2022 End: 08-09-2022 ambulatory CIRCUIT CLERK ADELAIDA SHEYLA Facility:H1 Start: 07-25-2022 End: 07-26-2022 ambulatory CIRCUIT CLERK ADELAIDA SHEYLA Facility:H1 Start: 07-15-2022 End: 07-15-2022 ambulatory NARENDRANATH LAKSHMIPATHY . Facility:H1 Start: 07-11-2022 ambulatory NARENDRANATH LAKSHMIPATHY . Facility:H1 Start: 06-26-2022 End: 06-27-[address] FINA NIXON . Facility:H1 Start: 06-11-2022 ambulatory CIRCUIT CLERK ADELAIDA CARRION Facil ity:H1 Start: 05-21-2022 End: 06-11-2022 ambulatory CIRCUIT CLERK ADELAIDA SHEYLA Facility:H1 Start: 05-08-2022 End: 05-09-2022 ambulatory CIRCUIT CLERK ADELAIDA CARRION Facility:H1 Start: 04-28-2022 End: 04-28-2022 ambulatory CIRCUIT CLERK ADELAIDA CARRION Facility:H1 Start: 04-03-2022 End: 04-04-[address] FINA NIXON . Facility:H1 Start: 03-19-2022 End: 03-20-2022 ambulatory CIRCUIT CLERK ADELAIDA CARRION Facility:H1 Start: 02-20-2022 End: 02-20-2022 ambulatory GILMER NEVES Facility:H1 Start: 01-10-2022 End: 02-12-2022 ambulatory BRIDGETTE MACEDO Facility:H1 Start: 01-02-2022 End: 01-03-[address] FINA NIXON . Facility:H1 Start: 01-01-2022 End: 01-02-2022 ambulatory BRIDGETTE MACEDO Facility:H1 Start: 12-16-2021 End: 12-16-2021 ambulatory CIRCUIT CLERK ADELAIDA PINEDARHONDA Facility:H1 Start: 11-21-2021 End: 11-22-[address] DOCTOR BERGERON Facility:H1 Start: 10-03-2021 End: 10-04-[address] FINA NIXON . Facility:H1 Start: 09-19-[address] FINA NIXON . Faci lity:H1 Start: 09-12-2021 End: 09-12-2021 ambulatory CIRCUIT CLERK ADELAIDA CARRION Facility:H1 Start: 08-20-2021 End: 08-20-[address] FINA NIXON . Facility: Start: 07-02-2018 End: 07-03-2018 Patient encounter procedure SUKI EBRAHEIM Facility:UTM C Procedures Date Procedure Procedure Detail Performing Clinician Start: 03-02-2024 BLOOD CULTURE 1 Generic External Data Provider Start: 02-16-2024 IGP,APTIMA HPV,AGE GDLN 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 Phone: Start: 01-28-2024 Urnls dip stick/tabl et rgnt non-auto w/o micrscp 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 Phone: Start: 01-21-2024 MHPT CULT,URINE Generic External Data Provider Start: 01-05-2024 ALL BASIC METABOLIC PANEL 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 Phone: Start: 09-18-2023 Mammography Adelaida ramos BOW MAKER MACHINE TENDER Work Phone: Start: 03-23-2023 Screening colonoscopy L oneal Carrion Work Phone: Start: 03-23-2023 Colonoscopy Adelaida ramos BOW MAKER MACHINE TENDER Work Phone: Start: 09-15-2022 Mammography Adelaida ramos BOW MAKER MACHINE TENDER Work Phone: Start: 08-28-2022 Microscopic observat ion [Identifier] in Cervix by Cyto stain 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 Phone: Start: 07-02-2018 ANESTH KNEE AREA SURGERY CHAPARRITA HENDRICKS Start: 07-02-2018 REMOVAL OF SUPPORT IMPLANT SUKI EBSANDRA Start: 07-02-2018 TREAT KNEECAP FRACTURE SUKI EBRAHEIM Plan of Treatment Date Care Activity Detail Author Start: 03-23-2033 Screening for malign ant neoplasm of colon [facility] Start: 08-28-2025 Screening for malign ant neoplasm of cervix [facility] Start: 02-15-2025 Medicare Annual Well ness (AWV) Medicare Annual Wellness (AWV) [facility] Start: 09-17-2024 Screening for malign ant neoplasm of breast Mammogram [facility] Start: 06-22-2024 End: 06-22-2024 Patient encounter procedure 06/22/2024 11:20 AM EDT Office Visit [facility] [place] [facility] [address] [place] [phone] Juany Leggett PA [address] [place] [id number] [facility] [place] [facility] Start: 05-24-2024 End: 05-24-2024 Patient encounter procedure 05/24/2024 8:20 AM EST Office Visit [facility] [place] [facility] [address] [place] [phone] Juany Leggett PA [address] [place] [address] [facility] [place] [facility] Start: 05-18-2024 Medicare Annual Well ness (AWV) Medicare Annual Wellness (AWV) [facility] Start: 05-12-2024 End: 05-12-2024 Patient encounter procedure 05/12/2024 10:00 AM EST Office Visit [facility] [address] [place] [address] Adelaida Carrion, BRIANA [address] [place] [phone] [facility] Start: 04-07-2024 End: 04-07-2024 Patient encounter procedure 04/07/2024 12:30 PM EST [facility] [address] [place] [address] [place] [phone] [facility] Start: 04-04-2024 End: 04-04-2024 Patient encounter procedure 04/04/2024 1:20 PM EST Office Visit [facility] [address] [place] [address] Adelaida Carrion, BRIANA [address] [place] [phone] [facility] Start: 03-22-2024 End: 03-22-2024 Clinical Support 03/22/2024 10:00 AM EST Clinical Support [facility] [address] [place] [address] [facility] [place] [facility] Start: 03-16-2024 End: 03-16-2024 Patient encounter procedure [facility] Comment on above: Metabolic encephalop athy (Primary Dx); OSMANY (obstructive sleep apnea); Morbid obesity (CMS/HCC); Bilateral lower extremity edema; Tobacco dependence; Bipolar disorder with severe depression (CMS/HCC); At risk for polypharmacy; Anxiety Start: 03-14-2024 End: 03-14-2024 Patient encounter procedure 03/14/2024 10:00 AM EST [facility] [address] [place] [address] David Foster, PhD [address] [place] [address] [facility] Start: 03-11-2024 End: 03-11-2025 EEG 2 Hour Routine EEG 2 Hour Routine Neurology Routine Altered mental status, unspecified altered mental status type Expected: 03/11/2024 (Approximate), Expires: 03/11/2025 [facility] Work Phone: Comment on above: Expected: 03/11/2024 (Approximate), Expires: 03/11/2025 Start: 03-10-2024 End: 03-10-2024 Patient encounter procedure 03/10/2024 3:40 PM EST Office Visit [facility] [address] [place] [phone] Rachel Mitchell PA [address] [facility] [address] [place], [place] [id number] [facility] Start: 03-01-2024 End: 03-01-2024 Patient encounter procedure 03/01/2024 12:00 PM EST Office Visit [facility] [address] [place] [phone] Juany Leggett PA [address] [place], [place] [phone] [facility] Start: 02-29-2024 End: 02-29-2024 Patient encounter procedure 02/29/2024 2:40 PM EST Office [facility] [place] [facility] [address] [place] [phone] Sonam Brown, BOW MAKER MACHINE TENDER [address] [place] [address] [facility] Start: 02-16-2024 End: 02-15-2025 THIN PREP TIS PAP AND HR HPV DNA THIN PREP TIS PAP AND HR HPV DNA Pathology and Cytology Routine Well woman exam with routine gynecological exam Expected: 02/16/2024 (Approximate), Expires: 02/15/2025 [facility] Work Phone: Comment on above: Expected: 02/16/2024 (Approximate), Expires: 02/15/2025 Start: 02-16-2024 End: 02-16-2024 Patient encounter procedure 02/16/2024 11:30 AM EST Procedure Visit [facility] [address] [place] [phone] Adelaida Carrion NP [address] [place] [address] [facility] Start: 02-04-2024 Influenza vaccination Influenza Vacc ine (#1) [facility] Comment on above: Postponed from 12/05 (Patient Does Not Have Time) Start: 01-28-2024 End: 01-27-2025 URINARY TRACT INFECTION (HTRX) URINARY TRACT INFECTION (HTRX) Lab Routine Acute cystitis without hematuria Expected: 01/28/2024 (Approximate), Expires: 01/27/2025 [facility] Work Phone: Comment on above: Expected: 01/28/2024 (Approximate), Expires: 01/27/2025 Start: 01-28-2024 End: 01-28-2024 Patient encounter procedure [facility] Comment on above: Tobacco dependence ( Primary Dx) Start: 01-04-2024 End: 01-03-2025 Basic metabolic 1998 panel - Serum or Plasma Basic metabolic panel Lab Routine Bilateral lower extremity edema Expected: 01/04/2024 (Approximate), Expires: 01/03/2025 [facility] Work Phone: Comment on above: Expected: 01/04/2024 (Approximate), Expires: 01/03/2025 Start: 01-04-2024 End: 01-04-2024 Patient encounter procedure [facility] Comment on above: Essential (primary) hypertension (CMS/HCC); Allergic rhinitis, unspecified Start: 12-09-2023 End: 12-09-2023 Patient encounter procedure 12/09/2023 10:30 AM EDT Office Visit [facility] [address] [place] [address] Juany Caballero NP [address] [place], [place] [facility] Start: 12-08-2023 End: 12-08-2023 Patient encounter procedure 12/08/2023 3:20 PM EDT Office Visit [facility] [address] [place] [address] Sonam Brown, BOW MAKER MACHINE TENDER [address] [place], [place] [id number] [facility] Start: 09-16-2023 Screening for malign ant neoplasm of breast Mammogram [facility] Start: 08-17-2023 End: 08-17-2023 Patient encounter procedure 08/17/2023 9:20 AM EDT Office Visit [facility] [address] [place] [address] Adelaida Carrion, BOW MAKER MACHINE TENDER [address] [place] [address] [facility] Start: 05-22-2023 End: 05-22-2023 Patient encounter procedure 05/22/2023 8:45 AM EST Office Visit [facility] [address] [facility] [address] [place] [address] Ashleigh Hines PA [address] [facility] [address] [place] [address] [facility] Start: 05-18-2023 End: 05-18-2023 Patient encounter procedure 05/18/2023 4:30 PM EST Office Visit [facility] [address] [place] [address] Adelaida Carrion, BRIANA [address] [place] [address] Arrived [facility] Comment on above: Arrived Start: 05-18-2023 End: 05-18-2024 XR Hip - left 3 Views XR hip left 2 or 3 views Imaging Routine Left hip pain Expected: 05/18/2023 (Approximate), Expires: 05/18/2024 [facility] Work Phone: Comment on above: Expected: 05/18/2023 (Approximate), Expires: 05/18/2024 Start: 03-23-2023 [facility] Start: 11-20-2022 [facility] Start: 11-18-2022 Referral to clinical research engineer marine equipment [facility] Start: 11-17-2022 Hospital admission [facility] Start: 11-17-2022 [facility] Start: 12-06-1991 Screening for malign ant neoplasm of cervix HPV/Cotest [facility] Start: 1960 Medicare Annual Well ness (AWV) Medicare Annual Wellness (AWV) [facility] Start: 1960 Screening for malign ant neoplasm of colon [facility] BLOOD CULTURE 1 BLOOD CULTURE 1 Lab Routine 03/02/2024 3:20 AM EST [facility] Patient Education [facility] Work Phone: Patient referral [facility] Work Phone: [facility] Immunizations Immunization Date Immunization Notes Care Provider Fa cility 01-28-2024 Influenza, injectabl e, Madin Nevaeh Canine Kidney, preservative free, quadrivalent Adelaida Aichholz BOW MAKER MACHINE TENDER Work Phone: [facility] 08-17-2023 zoster vaccine recombinant Adelaida Aichholz BOW MAKER MACHINE TENDER Work Phone: [facility] 02-13-2023 influenza, injectabl e, quadrivalent, preservative free Adelaida Aichholz BOW MAKER MACHINE TENDER Work Phone: [facility] 02-13-2023 SARS-COV-2 (COVID-19 ) vaccine, mRNA, spike protein, LNP, PF, 50 mcg/0.5 mL Aedlaida Aichholz BOW MAKER MACHINE TENDER Work Phone: [facility] 02-13-2023 influenza virus vaccine, unspecified formulation Adelaida Aichholz BOW MAKER MACHINE TENDER Work Phone: [facility] 02-19-2022 diphtheria, tetanus toxoids and pertussis vaccine Adelaida Aichholz BOW MAKER MACHINE TENDER Work Phone: [facility] 03-02-2021 Moderna SARS-CoV-2 Vaccination Adelaida Aichholz BOW MAKER MACHINE TENDER Work Phone: [facility] 08-24-2020 Moderna SARS-CoV-2 Vaccination Adelaida Aichholz BOW MAKER MACHINE TENDER Work Phone: [facility] 07-27-2020 Moderna SARS-CoV-2 Vaccination Adelaida Aichholz BOW MAKER MACHINE TENDER Work Phone: [facility] 05-28-2018 influenza, injectabl e, quadrivalent, preservative free Adelaida Aichholz Work Phone: [facility] 09-01-2018 pneumococcal conjuga te vaccine, 13 valent Adelaida Carrion NP Work Phone: [facility] Payers Date Payer Category Payer Medicare [id number] 2022 Self-pay [id number] 2022 Medicare [id number] 2022 Medicare (Managed Care) [facility]IC[facility] [id number] 2008 Unknown [id number] 1961 Unknown [id number] 2.16.840.1.466195.3.579.2 .647 1961 Unknown [id number] 2.16.840.1.966473.3.579.2 .593 1961 Unknown [id number] 2.16.840.1.740323.3.579.2 .593 1961 Unknown [id number] 2.16.840.1.269817.3.579.2 .593 1961 Unknown [id number] 2.16.840.1.707221.3.579.2 .593 1961 Unknown [id number] 2.16.840.1.780706.3.579.2 .593 1961 Unknown [id number] 2.16.840.1.797143.3.579.2 .593 1961 Unknown [id number] 2.16.840.1.322049.3.579.2 .593 1961 Unknown [id number] 2.16.840.1.334019.3.579.2 .593 1961 Unknown [id number] 2.16.840.1.755788.3.579.2 .593 1961 Unknown [id number] 2.16.840.1.719435.3.579.2 .593 1961 Unknown [id number] 2.16.840.1.331084.3.579.2 .593 1961 Unknown [id number] 2.16.840.1.481363.3.579.2 .593 1961 Unknown [id number] 2.16.840.1.762493.3.579.2 .593 1961 Unknown [id number] 2.16.840.1.940985.3.579.2 .593 1961 Unknown [id number] 2.16.840.1.901252.3.579.2 .593 1961 Unknown [id number] 2.16.840.1.964669.3.579.2 .593 1961 Unknown [id number] 2.16.840.1.745125.3.579.2 .593 1961 Unknown [id number] 2.16.840.1.676810.3.579.2 .593 1961 Unknown [id number] 2.16.840.1.301442.3.579.2 .593 1961 Unknown [id number] 2.16.840.1.822110.3.579.2 .593 1961 Unknown [id number] 2.16.840.1.493108.3.579.2 .593 1961 Unknown [id number] 2.16.840.1.747564.3.579.2 .593 1961 Unknown [id number] 2.16.840.1.608129.3.579.2 .593 1961 Unknown [id number] 2.16.840.1.911490.3.579.2 .593 1961 Unknown [id number] 2.16.840.1.455632.3.579.2 .196 1961 Unknown [id number] 2.16.840.1.329824.3.579.2 .196 1961 Unknown [id number] 2.16.840.1.041128.3.579.2 .1258 1961 Unknown [id number] 2.16.840.1.857977.3.579.2 .1258 1961 Unknown [id number] 2.16.840.1.643789.3.579.2 .125 1961 Unknown [id number] 2.16.840.1.965862.3.579.2 .1258 1961 Unknown [id number] 2.16.840.1.888681.3.579.2 .125 1961 Unknown [id number] 2.16.840.1.122081.3.579.2 .1258 1961 Unknown [id number] 2.16.840.1.737978.3.579.2 .125 1961 Unknown [id number] 2.16.840.1.593737.3.579.2 .1258 1961 Unknown [id number] 2.16.840.1.618363.3.579.2 .1258 1961 Unknown [id number] 2.16.840.1.888160.3.579.2 .1259 1961 Unknown [id number] 2.16.840.1.441328.3.579.2 .1258 1961 Unknown [id number] 2.16.840.1.546300.3.579.2 .9 1961 Unknown [id number] 2.16.840.1.434716.3.579.2 .1258 1961 Unknown [id number] 2.16.840.1.483867.3.579.2 .1258 1961 Unknown [id number] 2.16.840.1.943700.3.579.2 .1258 1961 Unknown [id number] 2.16.840.1.733271.3.579.2 .1258 1961 Unknown [id number] 2.16.840.1.772789.3.579.2 .1258 1961 Unknown [id number] 2.16.840.1.510009.3.579.2 .1258 1961 Unknown [id number] 2.16.840.1.705024.3.579.2 .1258 1961 Unknown [id number] 2.16.840.1.335039.3.579.2 .9 1959 Medicare [id number] 1959 Unknown [id number] Private Health Insurance [facility] [id number] Unknown [id number] 2.16.840.1.927999.3.579.2 .531 Unknown [id number] 2.16.840.1.107120.3.579.2 .531 Social History Date Type Detail Facility Start: 11-18-2022 End: 10-14-2023 Tobacco smoking status NHIS Ex-smoker (finding) [facility] Start: 1960 Sex Assigned At Female [facility] Start: 03-25-2023 End: 08-16-[address] [facility] Start: 04-06-1976 End: 04-06-2016 History of tobacco use Current smoker [facility] Start: 04-06-1976 End: 04-06-2016 History of tobacco use Cigarette Smoker [facility] Start: 02-09-2023 End: 08-16-2023 Cigarettes smoked current (pack per day) - Reported 1 [facility] Start: 02-09-2023 End: 10-14-2023 Tobacco use and exposure Smokeless tobacco non-user [facility] Start: 05-18-2023 End: 03-16-2024 Alcohol intake Lifetime non-drinker (finding) [facility] Start: 11-13-2022 Alcohol Comment caffeine intake: 1-[address] [facility] Start: 10-01-2022 Gender identity [...] Facility 11-20-2022 Functional status Patient at Baseline [facility] Work Phone: Mental Status Date Assessment Result Facility 11-20-2022 Cognitive function Cognitive Sta tus Patient is Progressing Toward Baseline [facility] Work Phone: Clinical Notes [...] Vimpat 50mg PO BID for seizure prevention [facility] 04-12-2024 Miscellaneous Notes 03/10/2024 Continue Gabapentin 300 mg BID for RLS. Continue clonazepam 0.5mg PO BID for RLS. This was decreased during recent hospitalization Continue Vimpat 50mg PO BID for seizure prevention documented in this encounter [facility] 04-07-2024 History of Present illness Narrative Images [...] homebody. 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 Diagnosed with OSMANY and RLS, wears CPAP nightly. Pain complaints include fibromyalgia and degenerative disc disease. Also has prior history of migraines which have resolved over the past 17 years. Neurological history includes small left thalamic stroke in 2016. MoCA 26/30. Patient accurately recalled this screening measure as well as her overall performance and score on it. Ad[facility] to [facility] the [facility] on 08/24/2023 with acute respiratory failure and confusion thought to be secondary to metabolic encephalopathy. LTME in August 2023 negative. Recently evaluated at [facility] on 03/02/2024 for severe encephalopathy. Brain MRI [...] any history of alcohol/substance abuse. Reformed smoker. [place] language [place]. [place] Completed a bachelor's degree. 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 Currently on disability. Resides with of 26 years along with her son, grandson, and 2 dogs. Has 2 children from a prior relationship. MEDICAL HISTORY/MEDICATION: MEDICATIONS: Current Outpatient Medications Medication Instructions amLODIPine (NORVASC) 10 mg, Oral, Daily biotin 5 MG tablet Pt taking OTC ([employer]) Calcium Citrate-Vitamin D (CITRACAL + D PO) Pt taking OTC ([employer]) carvedilol (COREG) 12.5 mg, Oral, 2 times [...] Daily Magnesium 400 MG capsule Pt taking OTCMira Dx) Melatonin 12 MG tablet 1 tablet, Oral, Nightly Multiple Vitamins-Minerals (BARIATRIC MULTIVITAMINS/IRON PO) Pt taking OTC ([employer]) nystatin (Mycostatin) 526966 UNIT/GM powder 1 application , 2 times [...] design >16th %ile. Motor/Speed of Processing: Right-handed. Blank Driller strength 16th %ile with right-hand, 38th %ile [...] Learning of a word list 79th %ile (2-87-29-12-12), delayed recall 93rd %ile. Recognition discriminability 93rd [...] Please contact me with any questions at [phone]. documented in this encounter [facility] 03-16-2024 History of Present illness Narrative Associated Problem(s): Right bundle branch block (RBBB) determined by electrocardiography At this point I will look at her past EKG's, She has had ECHO in past No symptoms, at this time I do not think that further testing is needed Pt is having a memory test done on apr 07 in [place] Pt is anxious and afraid-pt father had dementia Spironolactone pt is asking for 50mg instead of 25mg Images from the original note were not included. Michelle Be is a 63 y.o. female presents with chief complaint of Anxiety HPI: Here for hospital follow up: AMS She was evaluated at [facility], was seen by Neurology reviewed notes from [...] biotin 5 MG tablet Pt taking OTC ([employer]) Calcium Citrate-Vitamin D (CITRACAL + D PO) Pt taking OTC ([employer]) carvedilol (COREG) 12.5 mg, Oral, 2 times [...] Daily Magnesium 400 MG capsule Pt taking OTCMira Dx) Melatonin 12 MG tablet 1 tablet, Oral, Nightly Multiple Vitamins-Minerals (BARIATRIC MULTIVITAMINS/IRON PO) Pt taking OTC ([employer]) nystatin (Mycostatin) 579309 UNIT/GM powder 1 application , 2 times [...] Anxiety 05/18/2023 Bipolar disorder with severe depression ([facility]) 05/18/2023 Brain lesion Brain vascular malformation Chronic pain disorder Closed fracture of patella 02/04/2018 Colon polyps Constipation Degenerative cervical disc Degenerative lumbar disc Depression ([facility]) 05/18/2023 Diastolic dysfunction Dizziness 05/18/2023 Dysphagia Fibromyalgia Fibromyalgia Gastrocnemius equinus GERD (gastroesophageal reflux disease) Heart murmur Hematoma of right breast Hemiparesis ([facility]) Hemiparesis, right ([facility]) Hemorrhoid int/external hemorrhoids Hiatal hernia Iron deficiency Left foot pain 03/25/2023 Lower extremity edema Mood disorder ([facility]) mixed mood disorder OSMANY (obstructive sleep apnea) Osteoporosis ([facility]) Overactive bladder Pre-diabetes Primary hypertension ([facility]) 03/25/2023 PTSD (post-traumatic stress disorder) ([facility]) Restless leg Right knee pain Right sided weakness S/P bariatric surgery Shingles Slurred speech Stroke ([facility]) 2018 Tenosynovitis, de [...] to have evaluation documented in this encounter [facility] 03-16-2024 Instructions Adelaida Carrion NP - 03/16/2024 10:00 AM EST Spironolactone: I discontinued the 25mg script for this, sent a new script to [facility], for a 50mg pill, you will take 1 pill daily Memory testing in Apr 2024 Follow up with me in early May, sooner if needed documented in this encounter [facility] 03-16-2024 Telephone encounter Note Yep, sent to [employer]. [facility] 03-16-2024 Miscellaneous Notes Yep, sent to [employer]. Patient calls and states that hospital lowered her requip to 2 mg at bed time. Okay to send as new dosage? documented in this encounter [facility] 03-15-2024 Telephone encounter Note Patient calls and states that hospital lowered her requip to 2 mg at bed time. Okay to send as new dosage? [facility] 03-14-2024 History of Present illness Narrative Images [...] performance and score on it. Admitted to [facility] from the [facility] on 08/24/2023 with acute respiratory failure and confusion thought to be secondary to metabolic encephalopathy. Previous LTME in August 2023 negative. Recently evaluated at [facility] on 03/02/2024 for severe encephalopathy. Brain MRI [...] any history of alcohol/substance abuse. Reformed smoker. [place] language [place]. [place] Completed a bachelors degree. Previously [...] pain 03/25/2023 Lower extremity edema Mood disorder ([facility]) mixed mood disorder OSMANY (obstructive sleep apnea) Osteoporosis ([facility]) Overactive bladder Pre-diabetes Primary hypertension ([facility]) 03/25/2023 PTSD (post-traumatic stress disorder) ([facility]) Restless leg Right knee pain Right sided weakness S/P bariatric surgery Shingles Slurred speech Stroke ([facility]) 2018 Tenosynovitis, de Quervain Thoracic back pain, unspecified back pain laterality, unspecified chronicity Tobacco dependence Vertigo, benign paroxysmal Yeast infection of the skin 05/18/2023 MEDICATIONS: Current Outpatient Medications Medication Instructions amLODIPine (NORVASC) 10 mg, Oral, Daily biotin 5 MG tablet Pt taking OTC ([employer]) Calcium Citrate-Vitamin D (CITRACAL + D PO) Pt taking OTC [employer]) carvedilol (COREG) 12.5 mg, Oral, 2 times [...] Daily Magnesium 400 MG capsule Pt taking OTC([employer]) Melatonin 12 MG tablet 1 tablet, Oral, Nightly Multiple Vitamins-Minerals (BARIATRIC MULTIVITAMINS/IRON PO) Pt taking OTC ([employer]) nystatin (Mycostatin) 995475 UNIT/GM powder 1 application , Topical, 2 [...] Please contact me with any questions at [phone]. documented in this encounter [facility] 02-16-2024 History of Present illness Narrative Pt [...] biotin 5 MG tablet Pt taking OTC ([employer]) Calcium Citrate-Vitamin D (CITRACAL + D PO) Pt taking OTC ([employer]) carvedilol (COREG) 12.5 mg, Oral, 2 times [...] Daily Magnesium 400 MG capsule Pt taking OTC([facility]) Melatonin 12 MG tablet 1 tablet, Oral, Nightly Multiple Vitamins-Minerals (BARIATRIC MULTIVITAMINS/IRON PO) Pt taking OTC ([facility]) nystatin (Mycostatin) 731554 UNIT/GM powder 1 application , Topical, 2 [...] Anxiety 05/18/2023 Bipolar disorder with severe depression ([facility]) 05/18/2023 Brain lesion Brain vascular malformation Chronic pain disorder Closed fracture of patella 02/04/2018 Colon polyps Constipation Degenerative cervical disc Degenerative lumbar disc Depression ([facility]) 05/18/2023 Diastolic dysfunction Dizziness 05/18/2023 Dysphagia Fibromyalgia Fibromyalgia Gastrocnemius equinus GERD (gastroesophageal reflux disease) Heart murmur Hematoma of right breast Hemiparesis ([facility]) Hemiparesis, right ([facility]) Hemorrhoid int/external hemorrhoids Hiatal hernia Iron deficiency Left foot pain 03/25/2023 Lower extremity edema Mood disorder ([facility]) mixed mood disorder OSMANY (obstructive sleep apnea) Osteoporosis ([facility]) Overactive bladder Pre-diabetes Primary hypertension ([facility]) 03/25/2023 PTSD (post-traumatic stress disorder) ([facility]) Restless leg Right knee pain Right sided weakness S/P bariatric surgery Shingles Slurred speech Stroke ([facility]) 2018 Tenosynovitis, de [...] nursing note reviewed. Exam conducted with a plodding operator present. Constitutional: General: She is not in [...] chronic conditions allow documented in this encounter [facility] 01-28-2024 History of Present illness Narrative Associated [...] ER fu for UTI and dehydration. See [facility] for HPI Was sent home on Bactrim. Feels completely fine now, no fever, chills, malodorous urine, no constipation diarrhea or abd pain SUBJECTIVE: MEDICATIONS: Current Outpatient Medications Medication Instructions amLODIPine (NORVASC) 10 mg, Oral, Daily biotin 5 MG tablet Pt taking OTC ([employer]) Calcium Citrate-Vitamin D (CITRACAL + D PO) Pt taking OTC ([employer]) carvedilol (COREG) 12.5 mg, Oral, 2 times [...] Daily Magnesium 400 MG capsule Pt taking OTC([employer]) Melatonin 12 MG tablet 1 tablet, Oral, Nightly Multiple Vitamins-Minerals (BARIATRIC MULTIVITAMINS/IRON PO) Pt taking OTC ([employer]) nystatin (Mycostatin) 048120 UNIT/GM powder 1 application , Topical, 2 [...] Anxiety 05/18/2023 Bipolar disorder with severe depression ([facility]/HCC) 05/18/2023 Brain lesion Brain vascular malformation Chronic pain disorder Closed fracture of patella 02/04/2018 Colon polyps Constipation Degenerative cervical disc Degenerative lumbar disc Depression (CMS/HCC) 05/18/2023 Diastolic dysfunction Dizziness 05/18/2023 Dysphagia Fibromyalgia Fibromyalgia Gastrocnemius equinus GERD (gastroesophageal reflux disease) Heart murmur Hematoma of right breast Hemiparesis ([facility]) Hemiparesis, right ([facility]) Hemorrhoid int/external hemorrhoids Hiatal hernia Iron deficiency Left foot pain 03/25/2023 Lower extremity edema Mood disorder ([facility]) mixed mood disorder OSMANY (obstructive sleep apnea) Osteoporosis ([facility]) Overactive bladder Pre-diabetes Primary hypertension ([facility]) 03/25/2023 PTSD (post-traumatic stress disorder) ([facility]) Restless leg Right knee pain Right sided weakness S/P bariatric surgery Shingles Slurred speech Stroke ([facility]) 2018 Tenosynovitis, de [...] of the risks of continued smoking: stroke, [place], all forms of cancer, lung disease, and [...] Relevant Orders Flu vaccine, MDCK, quadrivalent, PF ([id number]) (Flucelvax single dose syringe) Associated Problem(s): Tobacco dependence The patient has been advised of the risks of continued smoking: stroke, [place], all forms of cancer, lung disease, and . Options for quitting smoking include: cold turkey, hypnosis, acupuncture, nicotine replacement meds (gum, lozenges, and patches), Buproprion, and Varenicline. At this time pt is encouraged to evaluate their goals for wanting to quit smoking, and reach out to provider when ready to start this process documented in this encounter [facility] 01-04-2024 History of Present illness Narrative Associated [...] compliance problems. There is no history of CAD/IN, heart failure or PVD. Identifiable causes of hypertension include sleep apnea. SUBJECTIVE: MEDICATIONS: Current Outpatient Medications Medication Instructions amLODIPine (NORVASC) 10 mg, Oral, Daily biotin 5 MG tablet Pt taking OTC ([employer]) Calcium Citrate-Vitamin D (CITRACAL + D PO) Pt taking OTC ([employer]) carvedilol (COREG) 12.5 mg, Oral, 2 times [...] Daily Magnesium 400 MG capsule Pt taking OTC([employer]) Melatonin 12 MG tablet 1 tablet, Oral, Nightly Multiple Vitamins-Minerals (BARIATRIC MULTIVITAMINS/IRON PO) Pt taking OTC ([employer]) nystatin (Mycostatin) 842896 UNIT/GM powder 1 application , Topical, 2 [...] Anxiety 05/18/2023 Bipolar disorder with severe depression ([facility]) 05/18/2023 Brain lesion Brain vascular malformation Chronic pain disorder Closed fracture of patella 02/04/2018 Colon polyps Constipation Degenerative cervical disc Degenerative lumbar disc Depression ([facility]) 05/18/2023 Diastolic dysfunction Dizziness 05/18/2023 Dysphagia Fibromyalgia Fibromyalgia Gastrocnemius equinus GERD (gastroesophageal reflux disease) Heart murmur Hematoma of right breast Hemiparesis ([facility]) Hemiparesis, right ([facility]) Hemorrhoid int/external hemorrhoids Hiatal hernia Iron deficiency Left foot pain 03/25/2023 Lower extremity edema Mood disorder ([facility]) mixed mood disorder OSMANY (obstructive sleep apnea) Osteoporosis ([facility]) Overactive bladder Pre-diabetes Primary hypertension ([facility]) 03/25/2023 PTSD (post-traumatic stress disorder) ([facility]) Restless leg Right [...] MCG/ACT nasal spray documented in this encounter [facility] 12-09-2023 History of Present illness Narrative Images [...] machine. She is normally seen at the [facility] and was last seen on [...] Anxiety 05/18/2023 Bipolar disorder with severe depression ([facility]/HCC) 05/18/2023 Brain lesion Brain vascular malformation Chronic pain disorder Closed fracture of patella 02/04/2018 Colon polyps Constipation Degenerative cervical disc Degenerative lumbar disc Depression (CMS/HCC) 05/18/2023 Diastolic dysfunction Dizziness 05/18/2023 Dysphagia Fibromyalgia Fibromyalgia Gastrocnemius equinus GERD (gastroesophageal reflux disease) Heart murmur Hematoma of right breast Hemiparesis ([facility]) Hemiparesis, right ([facility]) Hemorrhoid int/external hemorrhoids Hiatal hernia Iron deficiency Left foot pain 03/25/2023 Lower extremity edema Mood disorder ([facility]) mixed mood disorder OSMANY (obstructive sleep apnea) Osteoporosis ([facility]) Overactive bladder Pre-diabetes Primary hypertension ([facility]) 03/25/2023 PTSD (post-traumatic stress disorder) ([facility]) Restless leg Right knee pain Right sided weakness S/P bariatric surgery Shingles Slurred speech Stroke ([facility]) 2018 Tenosynovitis, de [...] melatonin. She was last seen in the [facility] on June 24, 2023. Since [...] for short term insomnia and not for correction insomnia. She is compliant on her download [...] was counseled on the risks of stroke, [place], and sudden with OSMANY, along with the [...] clinic: one year documented in this encounter [facility] 12-08-2023 History of Present illness Narrative Patient [...] Anxiety 05/18/2023 Bipolar disorder with severe depression ([facility]) 05/18/2023 Brain lesion Brain vascular malformation Chronic pain disorder Closed fracture of patella 02/04/2018 Colon polyps Constipation Degenerative cervical disc Degenerative lumbar disc Depression ([facility]/HCC) 05/18/2023 Diastolic dysfunction Dizziness 05/18/2023 Dysphagia Fibromyalgia Fibromyalgia Gastrocnemius equinus GERD (gastroesophageal reflux disease) Heart murmur Hematoma of right breast Hemiparesis ([facility]) Hemiparesis, right ([facility]) Hemorrhoid int/external hemorrhoids Hiatal hernia Iron deficiency Left foot pain 03/25/2023 Lower extremity edema Mood disorder ([facility]) mixed mood disorder OSMANY (obstructive sleep apnea) Osteoporosis ([facility]) Overactive bladder Pre-diabetes Primary hypertension ([facility]) 03/25/2023 PTSD (post-traumatic stress disorder) ([facility]) Restless leg Right knee pain Right sided weakness S/P bariatric surgery Shingles Slurred speech Stroke ([facility]) 2018 Tenosynovitis, de [...] Review Audit Reviewed by Festus Baron MA (Brand Engineer) on 12/08/23 at 1525 Medication Order Taking? Sig Documenting Provider Last Dose Status amLODIPine (Norvasc) 10 MG tablet [id number] Take 1 tablet (10 mg) by mouth Daily Adelaida Carrion NP Active biotin 5 MG tablet [id number] Pt taking OTC ([employer]) Historical ProviderMD Active Calcium Citrate-Vitamin D (CITRACAL + D PO) 90956537 Pt taking OTC ([facility]) Historical ProviderMD Active Cariprazine HCl (Vraylar) 4.5 MG capsule [id number] Take 4.5 mg by mouth Daily Active carvedilol (Coreg) 12.5 MG tablet [id number] Take 1 tablet (12.5 mg) by mouth in the morning and 1 tablet (12.5 mg) in the evening. Take with meals. Adelaida Carrion NP Active cetirizine (ZyrTEC) 10 MG tablet [id number] Take 1 tablet (10 mg) by mouth Daily Adelaida Carrion NP Active clonazePAM (KlonoPIN) 1 MG tablet [id number] Take 1 tablet (1 mg) by mouth 2 (two) times a day as needed for anxiety Do not start before October 16, 2023. Sonam Brown NP 11/15/23 235 DULoxetine (Cymbalta) [address] capsule [id number] Take 60 mg by mouth in the morning and 60 mg before bedtime. Do not crush or chew.. Active fluconazole (Diflucan) 150 MG tablet [id number] 1 pill every 3 days for a total of 3 doses Adelaida Carrion NP Active fluticasone (Flonase) 50 MCG/ACT nasal spray [id number] Administer 2 sprays into each nostril Daily Adelaida Carrion NP 11/04/23 235 gabapentin (Neurontin) 300 MG capsule [id number] Take 1 capsule (300 mg) by mouth in the morning and 1 capsule (300 mg) before bedtime. Sonam Brown NP Active losartan (Cozaar) 100 MG tablet [id number] Take 1 tablet (100 mg) by mouth Daily Adelaida Carrion NP Active Magnesium 400 MG capsule [id number] Pt taking OTC([facility]) Historical ProviderMD Active Melatonin 12 MG tablet [id number] Take 1 tablet by mouth at bedtime Active Multiple Vitamins-Minerals (BARIATRIC MULTIVITAMINS/IRON PO) [id number] Pt taking OTC ([facility]) Historical ProviderMD Active nystatin (Mycostatin) 353158 UNIT/GM powder [id number] Apply 1 application topically in the morning and 1 application before bedtime. Adelaida Carrion NP Active omeprazole (PriLOSEC) [address] capsule [id number] Take 1 capsule (20 mg) by mouth in the morning. Take before meals. Adelaida Carrion NP Active rOPINIRole (Requip) 4 MG tablet [id number] Take 1 tablet (4 mg) by mouth at bedtime Sonam Brown NP Active spironolactone (Aldactone) 25 MG tablet [id number] Take 2 tablets (50 mg) by mouth Daily Adelaidamonse Carrion NP Active tiZANidine (Zanaflex) 2 MG tablet [id number] Take 2 mg by mouth every 8 (eight) hours Adelaida Carrion NP Active traZODone (Desyrel) 150 MG tablet [id number] Take 150 mg by mouth at bedtime Active HPI AMS -Patient was admitted to [facility] from the [facility] on 08/24/2023 with acute respiratory [...] ankle and great toe bilaterally. Coordination Right: [place]-id-oazi normal. Rapid alternating movement normal.Left: Tvlrma-cc-ljcu normal. Rapid alternating movement normal. Gait Casual gait is normal including stance, stride, and arm swing. Motor Examination RUE Strength deltoid, biceps, triceps, wrist extensors, wrist extensors, wrist flexor, patrol community service officer strength 5/5. LUE Strength deltoid, biceps, triceps, wrist extensors, wrist extensors, wrist flexor, patrol community service officer strength 5/5. RLE Strength illopsoas, quadriceps, tibialis [...] not all inclusive. Patient was admitted to [facility] from the [facility] on 08/24/2023 with acute respiratory [...] of the brain in July 2019 showed azau-ei-uzkjxrob white matter changes with the largest area [...] make further recommendations documented in this encounter [facility] 05-18-2023 History of Present illness Narrative Associated [...] (BARIATRIC MULTIVITAMINS/IRON PO) Bariatric Multivitamins/Iron nystatin (Mycostatin) 458949 UNIT/GM powder 1 application , Topical, 2 [...] Anxiety 05/18/2023 Bipolar disorder with severe depression ([facility]) 05/18/2023 Brain vascular malformation Chronic pain disorder Colon polyps Constipation Degenerative cervical disc Degenerative lumbar disc Depression ([facility]) 05/18/2023 Diastolic dysfunction Dizziness 05/18/2023 Dysphagia Fibromyalgia Gastrocnemius equinus GERD (gastroesophageal reflux disease) Heart murmur Hematoma of right breast Hemiparesis, right ([facility]) Hemorrhoid int/external hemorrhoids Hiatal hernia Iron deficiency Left foot pain 03/25/2023 Lower extremity edema Mood disorder ([facility]) mixed mood disorder OSMANY (obstructive sleep apnea) Osteoporosis ([facility]) Overactive bladder Pre-diabetes Primary hypertension ([facility]) 03/25/2023 PTSD (post-traumatic stress disorder) ([facility]) Restless leg Right knee pain Right sided weakness S/P bariatric surgery Shingles Slurred speech Stroke ([facility]) 2018 Tenosynovitis, de [...] prn documented in this encounter [facility] 03-23-2023 Procedure note [facility] 12-19-2022 Evaluation note Encounter Date Diagnosis Assessment Notes Dec, Skin candidiasis (ICD-10 - B37.2) Drink plenty fluids, get plenty of rest. Continue home medications as prescribed. Take the Diflucan as prescribed until gone. Follow-up with your family physician if no improvement in 2 to 3 days [employer] Other 08-17-2023 Discharge summary Author Eduardo bautista [facility] November 20, 2022 6:38am Note Date/Time November 20, 2022 6: 38am [facility] [address] [place] [address] Discharge Summary Signed Patient: Michelle Be MR#: [id number] : 1960 Acct:[id number] Age/Sex: 61 / F Adm Date: 3 Loc: 1S Room: [address] [place] [address]: Gaudencio Monk MD Copies to: MD Adelaida Álvarez, BOW MAKER MACHINE TENDER-C~ Providers Date of Discharge: 11/20/22 Discharging Provider: [...] time.? [place] and was then diagnosed with bipolar disorder at [facility] in [place], where she still follows with a therapist.? Shereports that she has been with 7 therapists in the last 9 years and is currentlycompleting EMDR with her current therapist. Past hospitalizations: Her most recent hospitalization was 5 years ago [facility] in [place] for the same feeling she is [...] since 2010 due to her fibromyalgia.? [facility]. 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 (insert date/time [...] signed by Eduardo Monk MD> 11/20/22 0638 [facility] Work Phone: 1(989) 281-461608-16-2023 Progress note Author Eduardo bautista [facility] November 19, 2022 6:25am Note Date/Time November 19, 2022 6: 25am [facility] [address] [place] [address] Psychiatry Progress Note Signed Patient: Michelle Be MR#: [id number] : 1960 Acct:[id number] Age/Sex: 61 / F Adm Date: 3 Loc: Room: [address] [place] [address] Type : ADM IN Attending Dr: Gaudencio [...] signed by Eduardo Monk MD> 11/19/22 06 [facility] Work Phone: 1(632) 843-793508-15-2023 Progress note Author Eduardo bautista [facility] November 18, 2022 11:01am Note Date/Time November 18, 2022 10 :11am [facility] [address] [place] [address] Psychiatry Progress Note Signed Patient: Michelle Be MR#: [id number] : 1960 Acct:[id number] Age/Sex: 61 / F Adm Date: 3 Loc: Room: 1W3454-6 Type : ADM IN Attending Dr: Gaudencio [...] by requesting a schedule 2 referring to [facility] for pain management specifically every 4-6 hours [...] signed by MD DA Rangel> 11/18/22 1011 [facility] Work Phone: 1(436) 972-442308-14-2023 History and physical note Author Eduardo bautista [facility] November 17, 2022 12:48pm Note Date/Time November 17, 2022 12 :48pm [facility] [address] [place] [address] Psychiatry H&P Signed Patient: Michelle Be MR#: [id number] : 1960 Acct:[id number] Age/Sex: 61 / F Adm Date: 3 Loc: Room: [address] [place] [address] Type: ADM IN Attending Dr: Gaudencio Monk [...] time. [place] and was then diagnosed with bipolar disorder at [facility] in [place], where she still follows with a therapist. Shereports that she has been with 7 therapists in the last 9 years and is currentlycompleting EMDR with her current therapist. Past hospitalizations: Her most recent hospitalization was 5 years ago [facility] in [place] for the same feeling she is [...] since 2010 due to her fibromyalgia. [facility]. Relationships: Reports having [...] bilaterally. CN XII: Tongue protrusion midline [facility] Medical History (Updated 11/17/22 @ 10:42 by [...] signed by Eduardo Monk MD> 11/17/22 1248 [facility] Work Phone: [phone]) 591-624403-23-2023 NoteCONSULTATION CONSULTATION DATE: 06/26/2022 To: Nurse Carrion [...] L5-S1 facet joint injection under fluoroscopic guidance.[id number] NotePROCEDURE: XR SHOULDER RT 2V or > [...] authenticated by: KINGSLEY CLEMENTS Date: 2022-05-09 09:21[facility]01-23-2023 NotePROCEDURE: XR WRIST LT MIN 3 V HISTORY: Pain ; acute left wrist pain; no known injury COMPARISON: None. FINDINGS: BONES:No fracture, acute abnormality, or significant arthropathy. SOFT TISSUES:No visible soft tissue swelling. EFFUSION:None visible. OTHER: Negative. IMPRESSION: 1. No acute bone abnormality. 2. No significant degenerative joint disease or specific findings to account for patient's symptoms. Electronically authenticated by: KINSGLEY CLEMENTS Date: 2022-04-28 13:31[facility]12-29-2022 NoteCONSULTATION CONSULTATION DATE: 04/03/2022 HISTORY OF [...] her in three months, unless otherwise indicated.[facility] [id number] NoteCONSULTATION CONSULTATION DATE: 01/02/2022 This is a [...] by Dr. Macedo to [facility] in [place] for the compounded cream. She needs a [...] L5 bilaterally. Veronica's point is nontender bilaterally, Constanitn's and compression tests are negative. MUSCULOSKELETAL: Slight [...] in three months' time unless otherwise indicated.[facility] [id number] NotePROCEDURE: XR ANKLE RT MIN 3 VIEWS, [...] authenticated by: KINGSLEY CLEMENTS Date: 2022-01-01 13:11[facility]09-28-2022 NotePROCEDURE: XR ANKLE RT MIN 3 [...] authenticated by: KINGSLEY CLEMENTS Date: 2022-01-01 13:11[facility]08-18-2022 NotePROCEDURE: XR FOOT RT MIN 3 VIEWS HISTORY: Pain in right foot , chronic COMPARISON: XR foot right 2020 FINDINGS: BONES:No fracture, dislocation, bone lesion. Small calcaneal degenerative enthesophytes. SOFT TISSUES:No visible soft tissue swelling. EFFUSION:None visible. OTHER: Negative. IMPRESSION: 1. No acute bone abnormality or significant degenerative joint disease. Electronically authenticated by: KINGSLEY CLEMENTS Date: 2021-11-21 16:13[facility]06-30-2022 NoteCONSULTATION CONSULTATION DATE: 10/03/2021 This is [...] with the plan of care. [facility] Signed and Approved by: ZELDA MCDANIEL . 10/10/2021 10:22[facility] Onset Date Resolution Status Allergies acute Bipolar 2 disorder acute Hypertension acute Morbid obesity with BMI of 45.0-49.9, adult acute OSMANY (obstructive sleep apnea) acute Restless legs syndrome acute [facility] Work Phone: Evaluation noteNo InformationNortDoTheGlobe Other Evaluation noteNo assessment information available [facility] Work Phone: Evaluation note* Diagnosis Encounter for annual wellness visit (AWV) in Medicare patient- Primary OSMANY (obstructive sleep apnea) Obstructive sleep apnea (adult) (pediatric) Chronic pain disorder Chronic pain syndrome Gastroesophageal reflux disease, unspecified whether esophagitis present Overactive bladder Hypertonicity of bladder Lower extremity edema Edema Pre-diabetes Other abnormal glucose Morbid obesity ([facility]/HCC) Morbid obesity Yeast infection of the skin Candidiasis of skin and nails Tobacco dependence Tobacco use disorder Mood disorder ([facility]) Unspecified episodic mood disorder Primary hypertension ([facility]) Unspecified essential hypertension Left hip pain Pain in joint, pelvic region and thigh Open wound of anterior abdominal wall, initial encounter documented in this encounter [facility] HealthcareEvaluation note* Diagnosis Acute cystitis with hematuria- Primary documented in this encounter [facility] HealthcareEvaluation note* Diagnosis Left foot pain- Primary Pain in soft tissues of limb Primary hypertension ([facility]) Unspecified essential hypertension Class 3 severe obesity due to excess calories without serious comorbidity with body mass index (BMI) of 45.0 to 49.9 in adult ([facility]) Encounter for annual wellness visit (AWV) in Medicare patient- Primary OSMANY (obstructive sleep apnea) Obstructive sleep apnea (adult) (pediatric) Chronic pain disorder Chronic pain syndrome Gastroesophageal reflux disease, unspecified whether esophagitis present Overactive bladder Hypertonicity of bladder Lower extremity edema Edema Pre-diabetes Other abnormal glucose Morbid obesity ([facility]/HCC) Morbid obesity Yeast infection of the skin Candidiasis of skin and nails Tobacco dependence Tobacco use disorder Mood disorder ([facility]) Unspecified episodic mood disorder Primary hypertension ([facility]) Unspecified essential hypertension Left hip pain Pain in joint, pelvic region and thigh Open wound of anterior abdominal wall, initial encounter Primary hypertension ([facility])- Primary Unspecified essential hypertension Yeast infection of the skin Candidiasis of skin and nails Morbid obesity ([facility]) Morbid obesity Primary hypertension ([facility])- Primary Unspecified essential hypertension Encounter for screening mammogram for malignant neoplasm of breast Gastroesophageal reflux disease, unspecified whether esophagitis present Acute gout of right foot, unspecified cause Osteoporosis, unspecified osteoporosis type, unspecified pathological fracture presence ([facility]) Morbid obesity ([facility]) Morbid obesity Pre-diabetes Other abnormal glucose Anemia, unspecified type Vitamin deficiency Unspecified vitamin deficiency Post-viral cough syndrome Primary hypertension ([facility])- Primary Unspecified essential hypertension Allergic rhinitis, unspecified Acute cough Morbid obesity ([facility]) Morbid obesity Former cigarette smoker Personal history of tobacco use, presenting hazards to health Toxic metabolic encephalopathy- Primary Hemiparesis, right ([facility]) Unspecified hemiplegia affecting unspecified side Acute respiratory failure with hypoxia ([facility]) Heart murmur Undiagnosed cardiac murmurs Primary hypertension ([facility]) Unspecified essential hypertension Morbid obesity ([facility]) Morbid obesity Bipolar disorder with severe depression ([facility]) Slurred speech Other speech disturbance Bilateral lower extremity edema- Primary Primary hypertension ([facility]) Unspecified essential hypertension Lower extremity edema Edema Essential (primary) hypertension ([facility]) Unspecified essential hypertension Gastro-esophageal reflux disease without esophagitis Allergic rhinitis, unspecified Bilateral lower extremity edema- Primary Morbid (severe) obesity due to excess calories ([facility]) Body mass index (BMI) 45.0-49.9, adult ([facility]) Pre-diabetes Other abnormal glucose Bilateral lower extremity edema- Primary Essential (primary) hypertension ([facility]) Unspecified essential hypertension Allergic rhinitis, unspecified OSMANY (obstructive sleep apnea) Obstructive sleep apnea (adult) (pediatric) Primary hypertension ([facility]) Unspecified essential hypertension Morbid obesity ([facility]) Morbid obesity Acute cystitis without hematuria- Primary Tobacco dependence Tobacco use disorder Needs flu shot Need for prophylactic vaccination and inoculation against influenza Morbid obesity ([facility]) Morbid obesity documented in this encounter [facility]* Diagnosis Left foot pain- Primary Pain in soft tissues of limb Primary hypertension ([facility]) Unspecified essential hypertension Class 3 severe obesity due to excess calories without serious comorbidity with body mass index (BMI) of 45.0 to 49.9 in adult ([facility]) Encounter for annual wellness visit (AWV) in Medicare patient- Primary OSMANY (obstructive sleep apnea) Obstructive sleep apnea (adult) (pediatric) Chronic pain disorder Chronic pain syndrome Gastroesophageal reflux disease, unspecified whether esophagitis present Overactive bladder Hypertonicity of bladder Lower extremity edema Edema Pre-diabetes Other abnormal glucose Morbid obesity ([facility]) Morbid obesity Yeast infection of the skin Candidiasis of skin and nails Tobacco dependence Tobacco use disorder Mood disorder ([facility]) Unspecified episodic mood disorder Primary hypertension ([facility]) Unspecified essential hypertension Left hip pain Pain in joint, pelvic region and thigh Open wound of anterior abdominal wall, initial encounter Primary hypertension ([facility])- Primary Unspecified essential hypertension Yeast infection of the skin Candidiasis of skin and nails Morbid obesity ([facility]) Morbid obesity Primary hypertension ([facility])- Primary Unspecified essential hypertension Encounter for screening mammogram for malignant neoplasm of breast Gastroesophageal reflux disease, unspecified whether esophagitis present Acute gout of right foot, unspecified cause Osteoporosis, unspecified osteoporosis type, unspecified pathological fracture presence ([facility]) Morbid obesity ([facility]) Morbid obesity Pre-diabetes Other abnormal glucose Anemia, unspecified type Vitamin deficiency Unspecified vitamin deficiency Post-viral cough syndrome Primary hypertension ([facility])- Primary Unspecified essential hypertension Allergic rhinitis, unspecified Acute cough Morbid obesity ([facility]) Morbid obesity Former cigarette smoker Personal history of tobacco use, presenting hazards to health Toxic metabolic encephalopathy- Primary Hemiparesis, right ([facility]) Unspecified hemiplegia affecting unspecified side Acute respiratory failure with hypoxia ([facility]) Heart murmur Undiagnosed cardiac murmurs Primary hypertension ([facility]) Unspecified essential hypertension Morbid obesity ([facility]) Morbid obesity Bipolar disorder with severe depression ([facility]) Slurred speech Other speech disturbance Bilateral lower extremity edema- Primary Primary hypertension ([facility]) Unspecified essential hypertension Lower extremity edema Edema Essential (primary) hypertension ([facility]) Unspecified essential hypertension Gastro-esophageal reflux disease without esophagitis Allergic rhinitis, unspecified Bilateral lower extremity edema- Primary Morbid (severe) obesity due to excess calories ([facility]) Body mass index (BMI) 45.0-49.9, adult ([facility]) Pre-diabetes Other abnormal glucose Bilateral lower extremity edema- Primary Essential (primary) hypertension ([facility]) Unspecified essential hypertension Allergic rhinitis, unspecified OSMANY (obstructive sleep apnea) Obstructive sleep apnea (adult) (pediatric) Primary hypertension ([facility]) Unspecified essential hypertension Morbid obesity ([facility]) Morbid obesity Acute cystitis without hematuria- Primary Tobacco dependence Tobacco use disorder Needs flu shot Need for prophylactic vaccination and inoculation against influenza Morbid obesity ([facility]) Morbid obesity Restless leg Restless legs syndrome (RLS) documented in this encounter [facility]* Diagnosis Left foot pain- Primary Pain in soft tissues of limb Primary hypertension ([facility]) Unspecified essential hypertension Class 3 severe obesity due to excess calories without serious comorbidity with body mass index (BMI) of 45.0 to 49.9 in adult ([facility]) Encounter for annual wellness visit (AWV) in Medicare patient- Primary OSMANY (obstructive sleep apnea) Obstructive sleep apnea (adult) (pediatric) Chronic pain disorder Chronic pain syndrome Gastroesophageal reflux disease, unspecified whether esophagitis present Overactive bladder Hypertonicity of bladder Lower extremity edema Edema Pre-diabetes Other abnormal glucose Morbid obesity ([facility]) Morbid obesity Yeast infection of the skin Candidiasis of skin and nails Tobacco dependence Tobacco use disorder Mood disorder ([facility]) Unspecified episodic mood disorder Primary hypertension ([facility]) Unspecified essential hypertension Left hip pain Pain in joint, pelvic region and thigh Open wound of anterior abdominal wall, initial encounter Primary hypertension ([facility])- Primary Unspecified essential hypertension Yeast infection of the skin Candidiasis of skin and nails Morbid obesity ([facility]) Morbid obesity Primary hypertension ([facility])- Primary Unspecified essential hypertension Encounter for screening mammogram for malignant neoplasm of breast Gastroesophageal reflux disease, unspecified whether esophagitis present Acute gout of right foot, unspecified cause Osteoporosis, unspecified osteoporosis type, unspecified pathological fracture presence ([facility]) Morbid obesity ([facility]) Morbid obesity Pre-diabetes Other abnormal glucose Anemia, unspecified type Vitamin deficiency Unspecified vitamin deficiency Post-viral cough syndrome Primary hypertension ([facility])- Primary Unspecified essential hypertension Allergic rhinitis, unspecified Acute cough Morbid obesity ([facility]) Morbid obesity Former cigarette smoker Personal history of tobacco use, presenting hazards to health Toxic metabolic encephalopathy- Primary Hemiparesis, right ([facility]) Unspecified hemiplegia affecting unspecified side Acute respiratory failure with hypoxia ([facility]) Heart murmur Undiagnosed cardiac murmurs Primary hypertension ([facility] Unspecified essential hypertension Morbid obesity ([facility]) Morbid obesity Bipolar disorder with severe depression ([facility]) Slurred speech Other speech disturbance Bilateral lower extremity edema- Primary Primary hypertension ([facility]) Unspecified essential hypertension Lower extremity edema Edema Essential (primary) hypertension ([facility]) Unspecified essential hypertension Gastro-esophageal reflux disease without esophagitis Allergic rhinitis, unspecified Bilateral lower extremity edema- Primary Morbid (severe) obesity due to excess calories ([facility]) Body mass index (BMI) 45.0-49.9, adult ([facility]) Pre-diabetes Other abnormal glucose Bilateral lower extremity edema- Primary Essential (primary) hypertension ([facility]) Unspecified essential hypertension Allergic rhinitis, unspecified OSMANY (obstructive sleep apnea) Obstructive sleep apnea (adult) (pediatric) Primary hypertension ([facility]) Unspecified essential hypertension Morbid obesity ([facility]) Morbid obesity Acute cystitis without hematuria- Primary Tobacco dependence Tobacco use disorder Needs flu shot Need for prophylactic vaccination and inoculation against influenza Morbid obesity ([facility]) Morbid obesity Well woman exam with routine gynecological exam- Primary Routine gynecological examination Morbid obesity ([facility]) Morbid obesity documented in this encounter [facility] HealthcareEvaluation note* Diagnosis Left foot pain- Primary Pain in soft tissues of limb Primary hypertension ([facility]) Unspecified essential hypertension Class 3 severe obesity due to excess calories without serious comorbidity with body mass index (BMI) of 45.0 to 49.9 in adult ([facility]) Encounter for annual wellness visit (AWV) in Medicare patient- Primary OSMANY (obstructive sleep apnea) Obstructive sleep apnea (adult) (pediatric) Chronic pain disorder Chronic pain syndrome Gastroesophageal reflux disease, unspecified whether esophagitis present Overactive bladder Hypertonicity of bladder Lower extremity edema Edema Pre-diabetes Other abnormal glucose Morbid obesity ([facility]) Morbid obesity Yeast infection of the skin Candidiasis of skin and nails Tobacco dependence Tobacco use disorder Mood disorder ([facility]) Unspecified episodic mood disorder Primary hypertension ([facility]) Unspecified essential hypertension Left hip pain Pain in joint, pelvic region and thigh Open wound of anterior abdominal wall, initial encounter Primary hypertension ([facility])- Primary Unspecified essential hypertension Yeast infection of the skin Candidiasis of skin and nails Morbid obesity ([facility]) Morbid obesity Primary hypertension ([facility])- Primary Unspecified essential hypertension Encounter for screening mammogram for malignant neoplasm of breast Gastroesophageal reflux disease, unspecified whether esophagitis present Acute gout of right foot, unspecified cause Osteoporosis, unspecified osteoporosis type, unspecified pathological fracture presence ([facility]) Morbid obesity ([facility]) Morbid obesity Pre-diabetes Other abnormal glucose Anemia, unspecified type Vitamin deficiency Unspecified vitamin deficiency Post-viral cough syndrome Primary hypertension ([facility])- Primary Unspecified essential hypertension Allergic rhinitis, unspecified Acute cough Morbid obesity ([facility]) Morbid obesity Former cigarette smoker Personal history of tobacco use, presenting hazards to health Toxic metabolic encephalopathy- Primary Hemiparesis, right ([facility]) Unspecified hemiplegia affecting unspecified side Acute respiratory failure with hypoxia ([facility]) Heart murmur Undiagnosed cardiac murmurs Primary hypertension ([facility] Unspecified essential hypertension Morbid obesity ([facility]) Morbid obesity Bipolar disorder with severe depression ([facility]) Slurred speech Other speech disturbance Bilateral lower extremity edema- Primary Primary hypertension ([facility]) Unspecified essential hypertension Lower extremity edema Edema Essential (primary) hypertension ([facility]) Unspecified essential hypertension Gastro-esophageal reflux disease without esophagitis Allergic rhinitis, unspecified Bilateral lower extremity edema- Primary Morbid (severe) obesity due to excess calories ([facility]) Body mass index (BMI) 45.0-49.9, adult ([facility]) Pre-diabetes Other abnormal glucose Bilateral lower extremity edema- Primary Essential (primary) hypertension ([facility]) Unspecified essential hypertension Allergic rhinitis, unspecified OSMANY (obstructive sleep apnea) Obstructive sleep apnea (adult) (pediatric) Primary hypertension ([facility]) Unspecified essential hypertension Morbid obesity ([facility]) Morbid obesity Acute cystitis without hematuria- Primary Tobacco dependence Tobacco use disorder Needs flu shot Need for prophylactic vaccination and inoculation against influenza Morbid obesity ([facility]) Morbid obesity Well woman exam with routine gynecological exam- Primary Routine gynecological examination Morbid obesity ([facility]) Morbid obesity Essential (primary) hypertension ([facility]) Unspecified essential hypertension Allergic rhinitis, unspecified documented in this encounter [facility]* Diagnosis Left foot pain- Primary Pain in soft tissues of limb Primary hypertension ([facility]) Unspecified essential hypertension Class 3 severe obesity due to excess calories without serious comorbidity with body mass index (BMI) of 45.0 to 49.9 in adult ([facility]) Encounter for annual wellness visit (AWV) in Medicare patient- Primary OSMANY (obstructive sleep apnea) Obstructive sleep apnea (adult) (pediatric) Chronic pain disorder Chronic pain syndrome Gastroesophageal reflux disease, unspecified whether esophagitis present Overactive bladder Hypertonicity of bladder Lower extremity edema Edema Pre-diabetes Other abnormal glucose Morbid obesity ([facility]) Morbid obesity Yeast infection of the skin Candidiasis of skin and nails Tobacco dependence Tobacco use disorder Mood disorder ([facility]) Unspecified episodic mood disorder Primary hypertension ([facility]) Unspecified essential hypertension Left hip pain Pain in joint, pelvic region and thigh Open wound of anterior abdominal wall, initial encounter Primary hypertension ([facility])- Primary Unspecified essential hypertension Yeast infection of the skin Candidiasis of skin and nails Morbid obesity ([facility]) Morbid obesity Primary hypertension ([facility])- Primary Unspecified essential hypertension Encounter for screening mammogram for malignant neoplasm of breast Gastroesophageal reflux disease, unspecified whether esophagitis present Acute gout of right foot, unspecified cause Osteoporosis, unspecified osteoporosis type, unspecified pathological fracture presence ([facility]) Morbid obesity ([facility]) Morbid obesity Pre-diabetes Other abnormal glucose Anemia, unspecified type Vitamin deficiency Unspecified vitamin deficiency Post-viral cough syndrome Primary hypertension ([facility])- Primary Unspecified essential hypertension Allergic rhinitis, unspecified Acute cough Morbid obesity ([facility]) Morbid obesity Former cigarette smoker Personal history of tobacco use, presenting hazards to health Toxic metabolic encephalopathy- Primary Hemiparesis, right ([facility]) Unspecified hemiplegia affecting unspecified side Acute respiratory failure with hypoxia ([facility]) Heart murmur Undiagnosed cardiac murmurs Primary hypertension ([facility] Unspecified essential hypertension Morbid obesity ([facility]) Morbid obesity Bipolar disorder with severe depression [facility] [facility]) Slurred speech Other speech disturbance Bilateral lower extremity edema- Primary Primary hypertension ([facility]) Unspecified essential hypertension Lower extremity edema Edema Essential (primary) hypertension ([facility]) Unspecified essential hypertension Gastro-esophageal reflux disease without esophagitis Allergic rhinitis, unspecified Bilateral lower extremity edema- Primary Morbid (severe) obesity due to excess calories ([facility]) Body mass index (BMI) 45.0-49.9, adult ([facility]) Pre-diabetes Other abnormal glucose Bilateral lower extremity edema- Primary Essential (primary) hypertension ([facility]) Unspecified essential hypertension Allergic rhinitis, unspecified OSMANY (obstructive sleep apnea) Obstructive sleep apnea (adult) (pediatric) Primary hypertension ([facility]) Unspecified essential hypertension Morbid obesity ([facility]) Morbid obesity Acute cystitis without hematuria- Primary Tobacco dependence Tobacco use disorder Needs flu shot Need for prophylactic vaccination and inoculation against influenza Morbid obesity ([facility]/HCC) Morbid obesity Well woman exam with routine gynecological exam- Primary Routine gynecological examination Morbid obesity ([facility]) Morbid obesity Allergic rhinitis, unspecified documented in this encounter [facility]* Diagnosis Left foot pain- Primary Pain in soft tissues of limb Primary hypertension ([facility]) Unspecified essential hypertension Class 3 severe obesity due to excess calories without serious comorbidity with body mass index (BMI) of 45.0 to 49.9 in adult ([facility]) Encounter for annual wellness visit (AWV) in Medicare patient- Primary OSMANY (obstructive sleep apnea) Obstructive sleep apnea (adult) (pediatric) Chronic pain disorder Chronic pain syndrome Gastroesophageal reflux disease, unspecified whether esophagitis present Overactive bladder Hypertonicity of bladder Lower extremity edema Edema Pre-diabetes Other abnormal glucose Morbid obesity ([facility]) Morbid obesity Yeast infection of the skin Candidiasis of skin and nails Tobacco dependence Tobacco use disorder Mood disorder ([facility]) Unspecified episodic mood disorder Primary hypertension ([facility]) Unspecified essential hypertension Left hip pain Pain in joint, pelvic region and thigh Open wound of anterior abdominal wall, initial encounter Primary hypertension ([facility])- Primary Unspecified essential hypertension Yeast infection of the skin Candidiasis of skin and nails Morbid obesity ([facility]) Morbid obesity Primary hypertension ([facility])- Primary Unspecified essential hypertension Encounter for screening mammogram for malignant neoplasm of breast Gastroesophageal reflux disease, unspecified whether esophagitis present Acute gout of right foot, unspecified cause Osteoporosis, unspecified osteoporosis type, unspecified pathological fracture presence ([facility]) Morbid obesity ([facility]) Morbid obesity Pre-diabetes Other abnormal glucose Anemia, unspecified type Vitamin deficiency Unspecified vitamin deficiency Post-viral cough syndrome Primary hypertension ([facility])- Primary Unspecified essential hypertension Allergic rhinitis, unspecified Acute cough Morbid obesity ([facility]) Morbid obesity Former cigarette smoker Personal history of tobacco use, presenting hazards to health Toxic metabolic encephalopathy- Primary Hemiparesis, right ([facility]) Unspecified hemiplegia affecting unspecified side Acute respiratory failure with hypoxia ([facility]) Heart murmur Undiagnosed cardiac murmurs Primary hypertension ([facility]) Unspecified essential hypertension Morbid obesity ([facility]) Morbid obesity Bipolar disorder with severe depression ([facility]) Slurred speech Other speech disturbance Bilateral lower extremity edema- Primary Primary hypertension ([facility]) Unspecified essential hypertension Lower extremity edema Edema Essential (primary) hypertension ([facility]) Unspecified essential hypertension Gastro-esophageal reflux disease without esophagitis Allergic rhinitis, unspecified Bilateral lower extremity edema- Primary Morbid (severe) obesity due to excess calories ([facility]) Body mass index (BMI) 45.0-49.9, adult ([facility]) Pre-diabetes Other abnormal glucose Bilateral lower extremity edema- Primary Essential (primary) hypertension ([facility]) Unspecified essential hypertension Allergic rhinitis, unspecified OSMANY (obstructive sleep apnea) Obstructive sleep apnea (adult) (pediatric) Primary hypertension ([facility]) Unspecified essential hypertension Morbid obesity ([facility]) Morbid obesity Acute cystitis without hematuria- Primary Tobacco dependence Tobacco use disorder Needs flu shot Need for prophylactic vaccination and inoculation against influenza Morbid obesity ([facility]) Morbid obesity Well woman exam with routine gynecological exam- Primary Routine gynecological examination Morbid obesity ([facility]) Morbid obesity Yeast infection of the skin Candidiasis of skin and nails documented in this encounter [facility]* Diagnosis Left foot pain- Primary Pain in soft tissues of limb Primary hypertension ([facility]) Unspecified essential hypertension Class 3 severe obesity due to excess calories without serious comorbidity with body mass index (BMI) of 45.0 to 49.9 in adult ([facility]) Encounter for annual wellness visit (AWV) in Medicare patient- Primary OSMANY (obstructive sleep apnea) Obstructive sleep apnea (adult) (pediatric) Chronic pain disorder Chronic pain syndrome Gastroesophageal reflux disease, unspecified whether esophagitis present Overactive bladder Hypertonicity of bladder Lower extremity edema Edema Pre-diabetes Other abnormal glucose Morbid obesity ([facility]) Morbid obesity Yeast infection of the skin Candidiasis of skin and nails Tobacco dependence Tobacco use disorder Mood disorder ([facility]) Unspecified episodic mood disorder Primary hypertension ([facility]) Unspecified essential hypertension Left hip pain Pain in joint, pelvic region and thigh Open wound of anterior abdominal wall, initial encounter Primary hypertension ([facility])- Primary Unspecified essential hypertension Yeast infection of the skin Candidiasis of skin and nails Morbid obesity ([facility]) Morbid obesity Primary hypertension ([facility])- Primary Unspecified essential hypertension Encounter for screening mammogram for malignant neoplasm of breast Gastroesophageal reflux disease, unspecified whether esophagitis present Acute gout of right foot, unspecified cause Osteoporosis, unspecified osteoporosis type, unspecified pathological fracture presence ([facility]) Morbid obesity ([facility]) Morbid obesity Pre-diabetes Other abnormal glucose Anemia, unspecified type Vitamin deficiency Unspecified vitamin deficiency Post-viral cough syndrome Primary hypertension ([facility])- Primary Unspecified essential hypertension Allergic rhinitis, unspecified Acute cough Morbid obesity ([facility]) Morbid obesity Former cigarette smoker Personal history of tobacco use, presenting hazards to health Toxic metabolic encephalopathy- Primary Hemiparesis, right ([facility]) Unspecified hemiplegia affecting unspecified side Acute respiratory failure with hypoxia ([facility]) Heart murmur Undiagnosed cardiac murmurs Primary hypertension ([facility]) Unspecified essential hypertension Morbid obesity ([facility]) Morbid obesity Bipolar disorder with severe depression ([facility]) Slurred speech Other speech disturbance Bilateral lower extremity edema- Primary Primary hypertension ([facility]) Unspecified essential hypertension Lower extremity edema Edema Essential (primary) hypertension ([facility]) Unspecified essential hypertension Gastro-esophageal reflux disease without esophagitis Allergic rhinitis, unspecified Bilateral lower extremity edema- Primary Morbid (severe) obesity due to excess calories ([facility]) Body mass index (BMI) 45.0-49.9, adult ([facility]) Pre-diabetes Other abnormal glucose Bilateral lower extremity edema- Primary Essential (primary) hypertension ([facility]) Unspecified essential hypertension Allergic rhinitis, unspecified OSMANY (obstructive sleep apnea) Obstructive sleep apnea (adult) (pediatric) Primary hypertension ([facility]) Unspecified essential hypertension Morbid obesity ([facility]) Morbid obesity Acute cystitis without hematuria- Primary Tobacco dependence Tobacco use disorder Needs flu shot Need for prophylactic vaccination and inoculation against influenza Morbid obesity ([facility]) Morbid obesity Well woman exam with routine gynecological exam- Primary Routine gynecological examination Morbid obesity ([facility]) Morbid obesity Metabolic encephalopathy- Primary OSMANY (obstructive sleep apnea) Obstructive sleep apnea (adult) (pediatric) Restless leg Restless legs syndrome (RLS) 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 ([facility]) Degeneration of intervertebral disc of lumbar region with discogenic back pain and lower extremity pain Memory change Memory loss documented in this encounter [facility]* Diagnosis Left foot pain- Primary Pain in soft tissues of limb Primary hypertension ([facility]) Unspecified essential hypertension Class 3 severe obesity due to excess calories without serious comorbidity with body mass index (BMI) of 45.0 to 49.9 in adult ([facility]) Encounter for annual wellness visit (AWV) in Medicare patient- Primary OSMANY (obstructive sleep apnea) Obstructive sleep apnea (adult) (pediatric) Chronic pain disorder Chronic pain syndrome Gastroesophageal reflux disease, unspecified whether esophagitis present Overactive bladder Hypertonicity of bladder Lower extremity edema Edema Pre-diabetes Other abnormal glucose Morbid obesity ([facility]) Morbid obesity Yeast infection of the skin Candidiasis of skin and nails Tobacco dependence Tobacco use disorder Mood disorder ([facility]) Unspecified episodic mood disorder Primary hypertension ([facility]) Unspecified essential hypertension Left hip pain Pain in joint, pelvic region and thigh Open wound of anterior abdominal wall, initial encounter Primary hypertension ([facility])- Primary Unspecified essential hypertension Yeast infection of the skin Candidiasis of skin and nails Morbid obesity ([facility]) Morbid obesity Primary hypertension ([facility])- Primary Unspecified essential hypertension Encounter for screening mammogram for malignant neoplasm of breast Gastroesophageal reflux disease, unspecified whether esophagitis present Acute gout of right foot, unspecified cause Osteoporosis, unspecified osteoporosis type, unspecified pathological fracture presence ([facility]) Morbid obesity ([facility]) Morbid obesity Pre-diabetes Other abnormal glucose Anemia, unspecified type Vitamin deficiency Unspecified vitamin deficiency Post-viral cough syndrome Primary hypertension ([facility])- Primary Unspecified essential hypertension Allergic rhinitis, unspecified Acute cough Morbid obesity ([facility]) Morbid obesity Former cigarette smoker Personal history of tobacco use, presenting hazards to health Toxic metabolic encephalopathy- Primary Hemiparesis, right ([facility]) Unspecified hemiplegia affecting unspecified side Acute respiratory failure with hypoxia ([facility]) Heart murmur Undiagnosed cardiac murmurs Primary hypertension ([facility] Unspecified essential hypertension Morbid obesity ([facility]) Morbid obesity Bipolar disorder with severe depression ([facility]) Slurred speech Other speech disturbance Bilateral lower extremity edema- Primary Primary hypertension ([facility]) Unspecified essential hypertension Lower extremity edema Edema Essential (primary) hypertension ([facility]) Unspecified essential hypertension Gastro-esophageal reflux disease without esophagitis Allergic rhinitis, unspecified Bilateral lower extremity edema- Primary Morbid (severe) obesity due to excess calories ([facility]) Body mass index (BMI) 45.0-49.9, adult ([facility]) Pre-diabetes Other abnormal glucose Bilateral lower extremity edema- Primary Essential (primary) hypertension ([facility]) Unspecified essential hypertension Allergic rhinitis, unspecified OSMANY (obstructive sleep apnea) Obstructive sleep apnea (adult) (pediatric) Primary hypertension ([facility]) Unspecified essential hypertension Morbid obesity ([facility]) Morbid obesity Acute cystitis without hematuria- Primary Tobacco dependence Tobacco use disorder Needs flu shot Need for prophylactic vaccination and inoculation against influenza Morbid obesity ([facility]) Morbid obesity Well woman exam with routine gynecological exam- Primary Routine gynecological examination Morbid obesity ([facility]) Morbid obesity Altered mental status, unspecified altered mental status type- Primary Restless leg Restless legs syndrome (RLS) 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[facility]) OSMANY (obstructive sleep apnea) Obstructive sleep apnea (adult) (pediatric) documented in this encounter [facility]* Diagnosis Left foot pain- Primary Pain in soft tissues of limb Primary hypertension ([facility]) Unspecified essential hypertension Class 3 severe obesity due to excess calories without serious comorbidity with body mass index (BMI) of 45.0 to 49.9 in adult ([facility]) Encounter for annual wellness visit (AWV) in Medicare patient- Primary OSMANY (obstructive sleep apnea) Obstructive sleep apnea (adult) (pediatric) Chronic pain disorder Chronic pain syndrome Gastroesophageal reflux disease, unspecified whether esophagitis present Overactive bladder Hypertonicity of bladder Lower extremity edema Edema Pre-diabetes Other abnormal glucose Morbid obesity ([facility]) Morbid obesity Yeast infection of the skin Candidiasis of skin and nails Tobacco dependence Tobacco use disorder Mood disorder ([facility]) Unspecified episodic mood disorder Primary hypertension ([facility]) Unspecified essential hypertension Left hip pain Pain in joint, pelvic region and thigh Open wound of anterior abdominal wall, initial encounter Primary hypertension ([facility])- Primary Unspecified essential hypertension Yeast infection of the skin Candidiasis of skin and nails Morbid obesity ([facility]) Morbid obesity Primary hypertension ([facility])- Primary Unspecified essential hypertension Encounter for screening mammogram for malignant neoplasm of breast Gastroesophageal reflux disease, unspecified whether esophagitis present Acute gout of right foot, unspecified cause Osteoporosis, unspecified osteoporosis type, unspecified pathological fracture presence ([facility]) Morbid obesity ([facility]) Morbid obesity Pre-diabetes Other abnormal glucose Anemia, unspecified type Vitamin deficiency Unspecified vitamin deficiency Post-viral cough syndrome Primary hypertension ([facility])- Primary Unspecified essential hypertension Allergic rhinitis, unspecified Acute cough Morbid obesity ([facility]) Morbid obesity Former cigarette smoker Personal history of tobacco use, presenting hazards to health Toxic metabolic encephalopathy- Primary Hemiparesis, right ([facility]) Unspecified hemiplegia affecting unspecified side Acute respiratory failure with hypoxia ([facility]) Heart murmur Undiagnosed cardiac murmurs Primary hypertension ([facility] Unspecified essential hypertension Morbid obesity ([facility]) Morbid obesity Bipolar disorder with severe depression ([facility]) Slurred speech Other speech disturbance Bilateral lower extremity edema- Primary Primary hypertension ([facility]) Unspecified essential hypertension Lower extremity edema Edema Essential (primary) hypertension ([facility]) Unspecified essential hypertension Gastro-esophageal reflux disease without esophagitis Allergic rhinitis, unspecified Bilateral lower extremity edema- Primary Morbid (severe) obesity due to excess calories ([facility]) Body mass index (BMI) 45.0-49.9, adult ([facility]) Pre-diabetes Other abnormal glucose Bilateral lower extremity edema- Primary Essential (primary) hypertension ([facility]) Unspecified essential hypertension Allergic rhinitis, unspecified OSMANY (obstructive sleep apnea) Obstructive sleep apnea (adult) (pediatric) Primary hypertension ([facility]) Unspecified essential hypertension Morbid obesity ([facility]) Morbid obesity Acute cystitis without hematuria- Primary Tobacco dependence Tobacco use disorder Needs flu shot Need for prophylactic vaccination and inoculation against influenza Morbid obesity ([facility]) Morbid obesity Well woman exam with routine gynecological exam- Primary Routine gynecological examination Morbid obesity ([facility]) Morbid obesity Altered mental status, unspecified altered mental status type- Primary Memory change Memory loss Concentration deficit 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 ([facility]) PTSD (post-traumatic stress disorder) ([facility]) Posttraumatic stress disorder Bipolar affective disorder, remission status unspecified ([facility]) Family history of dementia Family history of [...] Edema Pre-diabetes Other abnormal glucose Morbid obesity ([facility]) Morbid obesity Yeast infection of the skin Candidiasis of skin and nails Tobacco dependence Tobacco use disorder Mood disorder (CMS/HCC) Unspecified episodic mood disorder Primary hypertension ([facility]) Unspecified essential hypertension Left hip pain Pain in joint, pelvic region and thigh Open wound of anterior abdominal wall, initial encounter Primary hypertension ([facility])- Primary Unspecified essential hypertension Yeast infection of the skin Candidiasis of skin and nails Morbid obesity (CMS/HCC) Morbid obesity Primary hypertension ([facility])- Primary Unspecified essential hypertension Allergic rhinitis, unspecified Acute cough Morbid obesity ([facility]) Morbid obesity Former cigarette smoker Personal history of tobacco use, presenting hazards to health Toxic metabolic encephalopathy- Primary Hemiparesis, right ([facility]) Unspecified hemiplegia affecting unspecified side Acute respiratory failure with hypoxia ([facility]) Heart murmur Undiagnosed cardiac murmurs Primary hypertension ([facility]) Unspecified essential hypertension Morbid obesity ([facility]) Morbid obesity Bipolar disorder with severe depression ([facility]) Slurred speech Other speech disturbance Bilateral lower extremity edema- Primary Primary hypertension ([facility] [facility] Unspecified essential hypertension Lower extremity edema Edema Essential (primary) hypertension ([facility]) Unspecified essential hypertension Gastro-esophageal reflux disease without esophagitis Allergic rhinitis, unspecified Bilateral lower extremity edema- Primary Morbid (severe) obesity due to excess calories ([facility]) Body mass index (BMI) 45.0-49.9, adult ([facility]) Pre-diabetes Other abnormal glucose Bilateral lower extremity edema- Primary Essential (primary) hypertension ([facility]/HCC) Unspecified essential hypertension Allergic rhinitis, unspecified OSMANY (obstructive sleep apnea) Obstructive sleep apnea (adult) (pediatric) Primary hypertension ([facility]) Unspecified essential hypertension Morbid obesity ([facility]) Morbid obesity Acute cystitis without hematuria- Primary Tobacco dependence Tobacco use disorder Needs flu shot Need for prophylactic vaccination and inoculation against influenza Morbid obesity (CMS/HCC) Morbid obesity Well woman exam with routine gynecological exam- Primary Routine gynecological examination Morbid obesity ([facility]/HCC) Morbid obesity Restless leg Restless legs syndrome (RLS) Metabolic encephalopathy- Primary OSMANY (obstructive sleep apnea) Obstructive sleep apnea (adult) (pediatric) Morbid obesity ([facility]/HCC) Morbid obesity Bilateral lower extremity edema Tobacco dependence Tobacco use disorder Bipolar disorder with severe depression ([facility]) At risk for polypharmacy Anxiety Anxiety state, unspecified documented in this encounter [facility]* Diagnosis Encounter for annual wellness visit (AWV) in Medicare patient- Primary OSMANY (obstructive sleep apnea) Obstructive sleep apnea (adult) (pediatric) Chronic pain disorder Chronic pain syndrome Gastroesophageal reflux disease, unspecified whether esophagitis present Overactive bladder Hypertonicity of bladder Lower extremity edema Edema Pre-diabetes Other abnormal glucose Morbid obesity ([facility]/HCC) Morbid obesity Yeast infection of the skin Candidiasis of skin and nails Tobacco dependence Tobacco use disorder Mood disorder ([facility]/HCC) Unspecified episodic mood disorder Primary hypertension ([facility]) Unspecified essential hypertension Left hip pain Pain in joint, pelvic region and thigh Open wound of anterior abdominal wall, initial encounter Primary hypertension ([facility]/HCC)- Primary Unspecified essential hypertension Yeast infection of the skin Candidiasis of skin and nails Morbid obesity ([facility]/HCC) Morbid obesity Primary hypertension ([facility])- Primary Unspecified essential hypertension Allergic rhinitis, unspecified Acute cough Morbid obesity ([facility]) Morbid obesity Former cigarette smoker Personal history of tobacco use, presenting hazards to health Toxic metabolic encephalopathy- Primary Hemiparesis, right ([facility]) Unspecified hemiplegia affecting unspecified side Acute respiratory failure with hypoxia ([facility]) Heart murmur Undiagnosed cardiac murmurs Primary hypertension ([facility]) Unspecified essential hypertension Morbid obesity ([facility]) Morbid obesity Bipolar disorder with severe depression ([facility]) Slurred speech Other speech disturbance Bilateral lower extremity edema- Primary Primary hypertension ([facility]) Unspecified essential hypertension Lower extremity edema Edema Essential (primary) hypertension ([facility]) Unspecified essential hypertension Gastro-esophageal reflux disease without esophagitis Allergic rhinitis, unspecified Bilateral lower extremity edema- Primary Morbid (severe) obesity due to excess calories ([facility]) Body mass index (BMI) 45.0-49.9, adult ([facility]) Pre-diabetes Other abnormal glucose Bilateral lower extremity edema- Primary Essential (primary) hypertension ([facility]) Unspecified essential hypertension Allergic rhinitis, unspecified OSMANY (obstructive sleep apnea) Obstructive sleep apnea (adult) (pediatric) Primary hypertension ([facility]/HCC) Unspecified essential hypertension Morbid obesity ([facility]) Morbid obesity Acute cystitis without hematuria- Primary Tobacco dependence Tobacco use disorder Needs flu shot Need for prophylactic vaccination and inoculation against influenza Morbid obesity (CMS/HCC) Morbid obesity Well woman exam with routine gynecological exam- Primary Routine gynecological examination Morbid obesity (CMS/HCC) Morbid obesity Metabolic encephalopathy- Primary OSMANY (obstructive sleep apnea) Obstructive sleep apnea (adult) (pediatric) Morbid obesity ([facility]/HCC) Morbid obesity Bilateral lower extremity edema Tobacco dependence Tobacco use disorder Bipolar disorder with severe depression ([facility]) At risk for polypharmacy Anxiety Anxiety state, unspecified Primary hypertension ([facility]) Unspecified essential hypertension Right bundle branch block (RBBB) determined by electrocardiography documented in this encounter [facility]* Diagnosis Yeast infection of the skin- Primary Candidiasis of skin and nails documented in this encounter [facility]* Diagnosis 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[facility])- Primary Restless leg Restless legs syndrome (RLS) Metabolic encephalopathy documented in this encounter [facility]* Diagnosis OSMANY (obstructive sleep apnea)- Primary Obstructive sleep apnea (adult) (pediatric) Restless leg Restless legs syndrome (RLS) documented in this encounter [facility]* Diagnosis Bilateral lower extremity edema- Primary Essential (primary) hypertension ([facility]) Unspecified essential hypertension Allergic rhinitis, unspecified OSMANY (obstructive sleep apnea) Obstructive sleep apnea (adult) (pediatric) Primary hypertension ([facility]) Unspecified essential hypertension Morbid obesity ([facility]) Morbid obesity documented in this encounter [...] Edema Pre-diabetes Other abnormal glucose Morbid obesity ([facility]) Morbid obesity Yeast infection of the skin Candidiasis of skin and nails Tobacco dependence Tobacco use disorder Mood disorder ([facility]) Unspecified episodic mood disorder Primary hypertension ([facility]) Unspecified essential hypertension Left hip pain Pain in joint, pelvic region and thigh Open wound of anterior abdominal wall, initial encounter Primary hypertension ([facility])- Primary Unspecified essential hypertension Yeast infection of the skin Candidiasis of skin and nails Morbid obesity ([facility]) Morbid obesity Primary hypertension ([facility])- Primary Unspecified essential hypertension Allergic rhinitis, unspecified Acute cough Morbid obesity ([facility]) Morbid obesity Former cigarette smoker Personal history of tobacco use, presenting hazards to health Toxic metabolic encephalopathy- Primary Hemiparesis, right ([facility]) Unspecified hemiplegia affecting unspecified side Acute respiratory failure with hypoxia ([facility]) Heart murmur Undiagnosed cardiac murmurs Primary hypertension ([facility]) Unspecified essential hypertension Morbid obesity ([facility]) Morbid obesity Bipolar disorder with severe depression ([facility]) Slurred speech Other speech disturbance Bilateral lower extremity edema- Primary Primary hypertension ([facility]) Unspecified essential hypertension Lower extremity edema Edema Essential (primary) hypertension ([facility]) Unspecified essential hypertension Gastro-esophageal reflux disease without esophagitis Allergic rhinitis, unspecified Bilateral lower extremity edema- Primary Morbid (severe) obesity due to excess calories ([facility]) Body mass index (BMI) 45.0-49.9, adult ([facility]) Pre-diabetes Other abnormal glucose Bilateral lower extremity edema- Primary Essential (primary) hypertension ([facility]) Unspecified essential hypertension Allergic rhinitis, unspecified OSMANY (obstructive sleep apnea) Obstructive sleep apnea (adult) (pediatric) Primary hypertension ([facility]) Unspecified essential hypertension Morbid obesity ([facility]) Morbid obesity Acute cystitis without hematuria- Primary Tobacco dependence Tobacco use disorder Needs flu shot Need for prophylactic vaccination and inoculation against influenza Morbid obesity ([facility]) Morbid obesity Well woman exam with routine gynecological exam- Primary Routine gynecological examination Morbid obesity ([facility]) Morbid obesity Metabolic encephalopathy- Primary OSMANY (obstructive sleep apnea) Obstructive sleep apnea (adult) (pediatric) Morbid obesity ([facility]) Morbid obesity Bilateral lower extremity edema Tobacco dependence Tobacco use disorder Bipolar disorder with severe depression ([facility]) At risk for polypharmacy Anxiety Anxiety state, unspecified Primary hypertension ([facility]) Unspecified essential hypertension Right bundle branch block (RBBB) determined by electrocardiography Metabolic encephalopathy- Primary Memory change Memory loss Altered mental status, unspecified altered mental status type Concentration deficit PTSD (post-traumatic stress disorder) ([facility]) Posttraumatic stress disorder Bipolar affective disorder, remission status unspecified ([facility]) Family history of dementia Family history of other neurological diseases 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[facility]) OSMANY (obstructive sleep apnea) Obstructive sleep [...] Edema Pre-diabetes Other abnormal glucose Morbid obesity ([facility]/HCC) Morbid obesity Yeast infection of the skin Candidiasis of skin and nails Tobacco dependence Tobacco use disorder Mood disorder ([facility]) Unspecified episodic mood disorder Primary hypertension ([facility]) Unspecified essential hypertension Left hip pain Pain in joint, pelvic region and thigh Open wound of anterior abdominal wall, initial encounter Primary hypertension ([facility])- Primary Unspecified essential hypertension Yeast infection of the skin Candidiasis of skin and nails Morbid obesity ([facility]) Morbid obesity Primary hypertension ([facility])- Primary Unspecified essential hypertension Allergic rhinitis, unspecified Acute cough Morbid obesity ([facility]) Morbid obesity Former cigarette smoker Personal history of tobacco use, presenting hazards to health Toxic metabolic encephalopathy- Primary Hemiparesis, right ([facility]) Unspecified hemiplegia affecting unspecified side Acute respiratory failure with hypoxia ([facility]) Heart murmur Undiagnosed cardiac murmurs Primary hypertension ([facility] Unspecified essential hypertension Morbid obesity ([facility]) Morbid obesity Bipolar disorder with severe depression ([facility]) Slurred speech Other speech disturbance Bilateral lower extremity edema- Primary Primary hypertension ([facility]) Unspecified essential hypertension Lower extremity edema Edema Essential (primary) hypertension ([facility]) Unspecified essential hypertension Gastro-esophageal reflux disease without esophagitis Allergic rhinitis, unspecified Bilateral lower extremity edema- Primary Morbid (severe) obesity due to excess calories ([facility]) Body mass index (BMI) 45.0-49.9, adult ([facility]) Pre-diabetes Other abnormal glucose Bilateral lower extremity edema- Primary Essential (primary) hypertension ([facility]) Unspecified essential hypertension Allergic rhinitis, unspecified OSMANY (obstructive sleep apnea) Obstructive sleep apnea (adult) (pediatric) Primary hypertension ([facility]) Unspecified essential hypertension Morbid obesity ([facility]) Morbid obesity Acute cystitis without hematuria- Primary Tobacco dependence Tobacco use disorder Needs flu shot Need for prophylactic vaccination and inoculation against influenza Morbid obesity ([facility]/HCC) Morbid obesity Well woman exam with routine gynecological exam- Primary Routine gynecological examination Morbid obesity ([facility]) Morbid obesity Metabolic encephalopathy- Primary OSMANY (obstructive sleep apnea) Obstructive sleep apnea (adult) (pediatric) Morbid obesity ([facility]) Morbid obesity Bilateral lower extremity edema Tobacco dependence Tobacco use disorder Bipolar disorder with severe depression ([facility]) At risk for polypharmacy Anxiety Anxiety state, unspecified Primary hypertension ([facility]) Unspecified essential hypertension Right bundle branch block (RBBB) determined by electrocardiography Transient alteration of awareness- Primary Restless leg Restless legs syndrome (RLS) documented in this encounter [facility] Author Jace Graham [facility] March 23, 2023 11:21am Note Date/Time March 23, 2023 11:21am [facility] [address] [place] [address] Gastroenterology H&P Signed Patient: Michelle Be MR#: [id number] : 1960 Acct:[id number] Age/Sex: 62 / F Adm Date: 3 Loc: Room: Type: [facility] Attending Dr: Jace Graham MD Copies to: [...] signed by Jace Graham MD> 03/23/23 112[address] [facility] Work Phone: History general Narrative - [...] see above surg Hospitalization History stroke 2017 [employer] Other Hospital Discharge instructions Additional Instructions Regular Diet [facility] Work [facility]: Hospital Discharge instructions Additional [...] years. -Follow up with PCP. -Office number [phone].[facility] Work Phone: Reason for visit Narrative* Consultation (Routine) - Closed Specialty Diagnoses / Procedures Referred By Contac t Referred To Contact Neuropsychology Diagnoses Memory change Procedures [place] OFFICE/OUTPATIENT NEW [facility] Juany Leggett PA [address] [place] [address] Phone: tel: fax: David Foster, PhD [address] [address] Phone: tel: fax: Referral ID Status Reason Start Date Expiration Date V isits Requested Visits Authorized [id number] Closed Specialty Services Required 03/07/2024 09/03/2024 1 [...] Documents on File Type Date Recorded Patient Worker'S Compensation Claims Examiner Expl anation Power of Tack Cutter 03/10/2024 3:12 PM POA Documents on File Type Date Recorded Patient Worker'S Compensation Claims Examiner Expl anation Power of Tack Cutter 03/10/2024 3:12 PM POA Documents on File Type Date Recorded Patient Worker'S Compensation Claims Examiner Expl anation Power of Tack Cutter 03/16/2024 9:42 AM darian atkins of collections attorney Power of Tack Cutter 03/10/2024 3:12 PM POA Chief Complaint and Reason for Visit Chief Complaint Bipolar Depression Reason for Visit Allergies Bipolar 2 disorder Hypertension Morbid obesity with BMI of 45.0-49.9, adult OSMANY (obstructive sleep apnea) Restless legs syndrome Chief Complaint Screening Additional Source Comments INFORMATION SOURCE (unrecogn ized section and content) DATE CREATED AUTHOR 02/18/2019 [facility] DATE CREATED AUTHOR AUTHOR'S ORGANIZ ATION 11/15/2021 [facility] DATE CREATED AUTHOR AUTHOR'S ORGANIZ ATION 08/16/2022 [facility] DATE CREATED AUTHOR AUTHOR'S ORGANIZ ATION 01/31/2024 [facility] DATE CREATED AUTHOR AUTHOR'S ORGANIZ ATION 04/14/2024 [facility] DATE CREATED AUTHOR AUTHOR'S ORGANIZ ATION 04/29/2024 [facility] ysician Group Care Teams (unrecognized sec [...] MD Other Provider Active Joellen Le , BOW MAKER MACHINE TENDER-C Other Provider Active Severo Yancey MD Other Provider Active Rao Webber MD Other Provider Active Yuan Shi MD Other Provider Active Delroy Ramirez MD Other Provider Active Berta Comer , DO Other Provider Active Negrito Ruiz , DO Other Provider Active Lacho Singh , DO Other Provider Active Rachana Hobson , SPECIAL NEEDS CAREGIVER Other Provider Active Rob Lake , DO Other Provider Active Jeff Alvarez MD Other Provider Active Urmila Rinaldi , SPECIAL NEEDS CAREGIVER Other Provider Active Bina Mayberry , SPECIAL NEEDS CAREGIVER Other Provider Active Mir Bradford MD Other Provider Active Te Da Silva MD Other Provider Active Debra Landaverde RN Other Provider Active Team Status: Inactive Member Role Status Dates Adelaida Carrion Primary Care Provider Active Jace Graham MD Attending Provider Active Personal Injury Paralegal Relationship Specialty Start Date End Date José Luis Roberts MD [address] [place] [address] PCP - General Family Medicine 05/18/23 Adelaida Carrion NP [address] [place] [phone] Referring Physician Nurse Practitioner 10/14/22 Personal Injury Paralegal Relationship Specialty Start Date End Date José Luis Roberts MD [address] [place] [phone] PCP - General Family Medicine 05/18/23 Adelaida Carrion NP [address] [place] [phone] Referring Physician Nurse Practitioner 10/14/22 Personal Injury Paralegal Relationship Specialty Start Date End Date José Luis Roberts MD [address] [place] [phone] PCP - General Family Medicine 05/18/23 Adelaida Carrion NP [address] [place] [address] Referring Physician Nurse Practitioner 10/14/22 Personal Injury Paralegal Relationship Specialty Start Date End Date José Luis Roberts MD [address] [place] [address] PCP - General Family Medicine 05/18/23 Adelaida Carrion, BRIANA Referring Physician Nurse Practitioner 10/14/22 Miriam Suarez DO [address] [place] [address] Referring Physician Neurology 06/29/23 [place] LPN Licensed Practical Nurse Family Medicine 12/18/23 Personal Injury Paralegal Relationship Specialty Start Date End Date José Luis Roberts MD [address] [place] [phone] PCP - General Family Medicine 05/18/23 Adelaida Carrion, BRIANA Referring Physician Nurse Practitioner 10/14/22 Miriam Suarez DO [address] [place] [address] Referring Physician Neurology 06/29/23 [place] LPN Licensed Practical Nurse Family Medicine 12/18/23 Personal Injury Paralegal Relationship Specialty Start Date End Date Unallocated, Geeta Sierra MD [address] [facility] [place] [address] PCP - General Family Medicine 01/27/24 Miriam Suarez DO [address] [place] [address] Referring Physician Neurology 06/29/23 [place] LPN Licensed Practical Nurse Family Medicine 12/18/23 Adelaida Carrion, BRIANA [address] [place] [phone] Nurse Practitioner Family Medicine 01/27/24 Personal Injury Paralegal Relationship Specialty Start Date End Date Unallocated, Noms MD Mariela [address] [place] [address] PCP - General Family Medicine 01/27/24 Miriam Suarez DO [address] [place] [address] Referring Physician Neurology 06/29/23 [place] LPN Licensed Practical Nurse Family Medicine 12/18/23 Adelaida Carrion, BRIANA [address] [place] [phone] Nurse Practitioner Family Medicine 01/27/24 Personal Injury Paralegal Relationship Specialty Start Date End Date José Luis Roberts MD [address] [place] [address] PCP - General Family Medicine 02/02/24 Miriam Suarez DO [address] [place] [address] Referring Physician Neurology 06/29/23 [place] LPN Licensed Practical Nurse Family Medicine 12/18/23 Adelaida Carrion, BRIANA [address] [place] [address] Nurse Practitioner Family Medicine 01/27/24 Personal Injury Paralegal Relationship Specialty Start Date End Date José Luis Roberts MD [address] [place] [phone] PCP - General Family Medicine 02/02/24 Miriam Suarez DO [address] [place] [address] Referring Physician Neurology 06/29/23 Adelaida Carrion NP [address] [place] [address] Nurse Practitioner Family Medicine 01/27/24 Bong Rosado MA Family Medicine 02/12/24 Personal Injury Paralegal Relationship Specialty Start Date End Date José Luis Roberts MD [address] [place] [phone] PCP - General Family Medicine 02/02/24 Miriam Suarez DO [address] [place] [address] Referring Physician Neurology 06/29/23 Adelaida Carrion NP [address] [place] [address] Nurse Practitioner Family Medicine 01/27/24 Bong Rosado MA Family Medicine 02/12/24 Personal Injury Paralegal Relationship Specialty Start Date End Date José Luis Roberts MD [address] [place] [phone] PCP - General Family Medicine 02/02/24 Miriam Suarez DO [address] [place] [address] Referring Physician Neurology 06/29/23 Adelaida Carrion NP [address] [place] [address] Nurse Practitioner Family Medicine 01/27/24 Bong Rosado MA Family Medicine 02/12/24 Personal Injury Paralegal Relationship Specialty Start Date End Date José Luis Roberts MD [address] [place] [address] PCP - General Family Medicine 02/02/24 Miriam Suarez DO [address] [place] [id number] Referring Physician Neurology 06/29/23 Adelaida Carrion NP [address] [place] [address] Nurse Practitioner Family Medicine 01/27/24 Bong Rosado MA Family Medicine 02/12/24 Personal Injury Paralegal Relationship Specialty Start Date End Date José Luis Roberts MD [address] [place] [address] PCP - General Family Medicine 02/02/24 Miriam Suarez DO [address] [place] [address] Referring Physician Neurology 06/29/23 Adelaida Carrion NP [address] [place] [address] Nurse Practitioner Family Medicine 01/27/24 Bong Rosado MA Family Medicine 02/12/24 Personal Injury Paralegal Relationship Specialty Start Date End Date José Luis Roberts MD [address] [place] [phone] PCP - General Family Medicine 02/02/24 Miriam Suarez DO [address] [place] [address] Referring Physician Neurology 06/29/23 Adelaida Carrion NP [address] [place] [address] Nurse Practitioner Family Medicine 01/27/24 Bong Rosado MA Family Medicine 02/12/24 Personal Injury Paralegal Relationship Specialty Start Date End Date José Luis Roberts MD [address] [place] [address] PCP - General Family Medicine 02/02/24 Miriam Suarez DO [address] [place] [address] Referring Physician Neurology 06/29/23 Adelaida Carrion, BRIANA [address] [place] [address] Nurse Practitioner Family Medicine 01/27/24 Bong Rosado MA Family Medicine 02/12/24 Personal Injury Paralegal Relationship Specialty Start Date End Date José Luis Roberts MD [address] [place] [address] PCP - General Family Medicine 02/02/24 Miriam Suarez DO [address] [place] [address] Referring Physician Neurology 06/29/23 Adelaida Carrion NP [address] [place] [address] Nurse Practitioner Family Medicine 01/27/24 Bong Rosado MA Family Medicine 02/12/24 Personal Injury Paralegal Relationship Specialty Start Date End Date José Luis Roberts MD [address] [place] [address] PCP - General Family Medicine 02/02/24 Miriam Suarez DO [address] [place] [address] Referring Physician Neurology 06/29/23 Adelaida Carrion NP [address] [place] [address] Nurse Practitioner Family Medicine 01/27/24 Bong Rosado MA Family Medicine 02/12/24 Personal Injury Paralegal Relationship Specialty Start Date End Date José Luis Roberts MD [address] [place] [address] PCP - General Family Medicine 02/02/24 Miriam Suarez DO [address] [place] [address] Referring Physician Neurology 06/29/23 Adelaida Carrion NP [address] [place] [address] Nurse Practitioner Family Medicine 01/27/24 Bong Rosado [facility] Medicine 02/12/24 Personal Injury Paralegal Relationship Specialty Start Date End Date José Luis Roberts MD [address] [place] [address] PCP - General Family Medicine 02/02/24 Miriam Suarez DO [address] [place] [address] Referring Physician Neurology 06/29/23 Adelaida Carrion NP [address] [place] [address] Nurse Practitioner Family Medicine 01/27/24 Bong Roasdo MA [facility] Medicine 02/12/24 Personal Injury Paralegal Relationship Specialty Start Date End Date José Luis Roberts MD [address] [place] [address] PCP - General Family Medicine 05/18/23 Adelaida Carrion NP Referring Physician Nurse Practitioner 10/14/22 Miriam Suarez DO [address] [place] [address] Referring Physician Neurology 06/29/23 Mathew Parra LPN Licensed Practical Nurse Family Medicine 07/23/23 Personal Injury Paralegal Relationship Specialty Start Date End Date José Luis Roberts MD [address] [place] [address] PCP - General Family Medicine 05/18/23 Adelaida Carrion NP Referring Physician Nurse Practitioner 10/14/22 Miriam Suarez DO [address] [place] [address] Referring Physician Neurology 06/29/23 Mathew Parra LPN Licensed Practical Nurse Family Medicine 07/23/23 Personal Injury Paralegal Relationship Specialty Start Date End Date José Luis Roberts MD [address] [place] [phone] PCP - General Family Medicine 05/18/23 Adelaida Carrion NP Referring Physician Nurse Practitioner 10/14/22 Miriam Suarez DO [address] [place] [address] Referring Physician Neurology 06/29/23 Mathew Parra LPN Licensed Practical Nurse Family Medicine 07/23/23 Personal Injury Paralegal Relationship Specialty Start Date End Date José Luis Roberts MD [address] [place] [phone] PCP - General Family Medicine 05/18/23 Adelaida Carrion NP Referring Physician Nurse Practitioner 10/14/22 Miriam Suarez DO [address], [place] [address] Referring Physician Neurology 06/29/23 Mathew Parra LPN Licensed Practical Nurse Family Medicine 07/23/23 Personal Injury Paralegal Relationship Specialty Start Date End Date José Luis Roberts MD [address] [place] [address] PCP - General Family Medicine 05/18/23 Adelaida Carrion NP Referring Physician Nurse Practitioner 10/14/22 Miriam Suarez DO [address] [place] [address] Referring Physician Neurology 06/29/23 [place] LPN Licensed Practical Nurse Family Medicine 12/18/23 Personal Injury Paralegal Relationship Specialty Start Date End Date José Luis Roberts MD [address] [place] [address] PCP - General Family Medicine 05/18/23 Adelaida Carrion NP Referring Physician Nurse Practitioner 10/14/22 Miriam Suarez DO [address] [place] [address] Referring Physician Neurology 06/29/23 [place] LPN Licensed Practical Nurse Family Medicine 12/18/23 Personal Injury Paralegal Relationship Specialty Start Date End Date José Luis Roberts MD [address] [place] [address] PCP - General Family Medicine 05/18/23 Adelaida Carrion NP Referring Physician Nurse Practitioner 10/14/22 Miriam Suarez DO [address] [place] [address] Referring Physician Neurology 06/29/23 [place] LPN Licensed Practical Nurse Family Medicine 12/18/23 Personal Injury Paralegal Relationship Specialty Start Date End Date José Luis Roberts MD [address] [place] [address] PCP - General Family Medicine 02/02/24 Miriam Suarez DO [address] [place] [address] Referring Physician Neurology 06/29/23 Adelaida Carrion NP [address] [place] [address] Nurse Practitioner Family Medicine 01/27/24 Bong [...] BE BASED ON THE PRIMARY CLINICAL RECORDS. [employer] provides no warranty or guarantee of the accuracy or completeness of information in this document.
[2024-05-09 07:15] VITALS: BP 150/77; PULSE 83; TEMP 36.7; O2SAT 96
[2024-05-09 08:16] VITALS: BP 141/72; PULSE 66; O2SAT 95
[2024-05-09 08:18] VITALS: BP 136/68; PULSE 60; O2SAT 95
--- NOTE | 2024-05-09 08:21 | W.PM.PROCNOT ---
Date of procedure: 05/09/24 Pre-op diagnosis: Pain due to lumbar spondylosis without myelopathy Post-op diagnosis: same as pre-op Procedure: Procedure: Bilateral L1-2, 2-3 medial branch block Medications: Bupivacaine 0.25% 6cc The patient was seen and examined in the preoperative holding area.? An informed consent was obtained and placed on the chart.? The patient was brought to the medical procedure unit and placed in the prone position.? A timeout was completed verifying correct patient, procedure site, positioning, plan, and special equipment.? Using aseptic technique, the needle was placed at left L1. Under direct fluoroscopic visualization a Quincke-tipped spinal needle was advanced to the junction of the superior articulating process with the transverse process at the designated medial branch segment.? Preceded by negative aspiration, the above-mentioned injectate was placed in 1 mL aliquots.? The procedure was repeated at left L2, 3.? The needle was removed and insertion site was covered. The same procedure, at the same levels, was completed on the right side. The patient was taken to the postprocedural recovery area and monitored for an appropriate length of time before found suitable for discharge in the company of a responsible adult. Anesthesia: Local Surgeon: Syeda Mancuso Pathology: none sent Condition: stable Disposition: no change
[2024-05-09] MEDS: BUPIVACAINE HCL 0.25% PF 25 MG/10 ML VIAL 8 ML INJ (08:22)
[2024-05-09] MEDS: LIDOCAINE HCL 2% 400 MG/20 ML MDV INJ (08:22)
== END 2024-05-09 08:28 | disposition home or self-care (01) ==
LOC: SURGOUT 06:38
PROVIDERS: PCP Nurse Practitioner; Visit Provider Anesthesiology
DX: M47.816 Spondylosis without myelopathy or radiculopathy, lumbar region (principal)
CPT/HCPCS: 64493; 64494; J0665

== ENCOUNTER 2024-05-12 11:02 | Outpatient (OUT) | payer MEDICARE, SELFPAY ==
--- NOTE | 2024-05-12 11:30 | P.CN_ITS ---
Consult Note: HPI Data of Consult Patient: known to practice within the last 3 years Requesting Physician: Bhakti Culp NP Primary Care Provider: Adelaida Carrion NP Consult Narrative Reason for consult: f/u Narrative: Nasim Ingram a 63 year old female with longstanding low back pain presents for evaluation. has engaged in provider guided HEP > 6 weeks wihout benefit, failed tylenol heat and ice, cannot utilize NSAIDs with hx of gastric bypass. currently utilizing gabapentin, tizanidine, duloxetine with mild benefit, denies side effects. recently underwent bilateral L1/2 L2/3 MBB #1 with 100% improvement in pain immediately following and hours after the injection, preop pain up to 8/10 post op pain 0/10. cc:: CC: Bhakti Culp NP Review of Systems ROS Status of ROS 10 or more systems reviewed and unremark able except as noted in history and below Musculoskeletal Reports: back pain PFSH PFSH Medical History FH: bariatric surgery ?Z84.89 - Family history of other specified conditions (ICD-10) Upper back pain ?M54.9 - Dorsalgia, unspecified (ICD-10) Osteoarthritis ?M19.90 - Unspecified osteoarthritis, unspecified site (ICD-10) Neck pain ?M54.2 - Cervicalgia (ICD-10) Low back pain ?M54.50 - Low back pain, unspecified (ICD-10) Fibromyalgia ?M79.7 - Fibromyalgia (ICD-10) Bipolar 1 disorder ?F31.9 - Bipolar disorder, unspecified (ICD-10) Acid reflux ?K21.9 - Gastro-esophageal reflux disease without esophagitis (ICD-10) Obesity ?E66.9 - Obesity, unspecified (ICD-10) Sleep apnea ?G47.30 - Sleep apnea, unspecified (ICD-10) Heart murmur ?R01.1 - Cardiac murmur, unspecified (ICD-10) High cholesterol ?E78.00 - Pure hypercholesterolemia, unspecified (ICD-10) Hypertension ?I10 - Essential (primary) hypertension (ICD-10) Surgical History S/P dilatation and curettage ?Z98.890 - Other specified postprocedural states (ICD-10) H/O breast biopsy ?Z98.890 - Other specified postprocedural states (ICD-10) S/P ORIF (open reduction internal fixation) fracture ?Z98.890 - Other specified postprocedural states (ICD-10) ?Z87.81 - Personal history of (healed) traumatic fracture (ICD-10) Hx of laparoscopic gastric banding ?Z98.84 - Bariatric surgery status (ICD-10) History of tonsillectomy and adenoidectomy ?Z90.89 - Acquired absence of other organs (ICD-10) History of appendectomy ?Z90.49 - Acquired absence of other specified parts of digestive tract (ICD- 10) History of hemilaminectomy ?Z98.890 - Other specified postprocedural states (ICD-10) History of cholecystectomy ?Z90.49 - Acquired absence of other specified parts of digestive tract (ICD- 10) Previous section ?Z98.891 - History of uterine scar from previous surgery (ICD-10) Social History Smoking status: Former smoker Little interest or pleasure in doing things: not at all Feeling down, depressed, or hopeless: not at all Meds Home Medications and Allergies Home Medications ?Medication ?Instructions ?Recorded ?Confirmed ?Type amlodipine 10 mg tablet (Norvasc) 10 mg PO DAILY 09/10/22 05/09/24 History biotin 1 mg capsule 5 mg PO DAILY 09/10/22 05/09/24 History cariprazine 4.5 mg capsule 4.5 mg PO Q24H 09/10/22 05/09/24 History (Vraylar) cetirizine 10 mg tablet (24Hour 10 mg PO DAILY PRN allergy symptoms 09/10/22 05/09/24 History Allergy) clonazepam 1 mg tablet 1 mg PO Q12H 09/10/22 05/09/24 History duloxetine 60 mg capsule,delayed 60 mg PO BID 09/10/22 05/09/24 History release ferrous sulfate 325 mg (65 mg 325 mg PO BID 09/10/22 05/09/24 History iron) tablet (FeroSul) losartan 50 mg tablet (Cozaar) 100 mg PO DAILY 09/10/22 05/09/24 History magnesium 200 mg tablet 400 mg PO QDAY 09/10/22 05/09/24 History melatonin 12 mg tablet 12 mg PO .HS PRN sleep 09/10/22 05/09/24 History omeprazole 20 mg capsule,delayed 20 mg PO QDAY 09/10/22 05/09/24 History release ropinirole 4 mg tablet 4 mg PO QDAY 09/10/22 05/09/24 History trazodone 150 mg tablet 150 mg PO .HS 09/10/22 05/09/24 History tizanidine 2 mg tablet 2 mg PO TID PRN muscle spasticity 10/01/23 05/09/24 Rx #90 tabs fluticasone propionate 50 1 spray intranasal DAILY PRN 10/20/23 05/09/24 History mcg/actuation nasal allergy symptoms spray,suspension (Flonase Allergy Relief) spironolactone 50 mg tablet 50 mg PO DAILY 10/20/23 05/09/24 History gabapentin 300 mg capsule 300 mg PO BID 11/03/23 05/09/24 History calcium citrate 200 mg PO QID 11/04/23 05/09/24 History carvedilol 12.5 mg tablet 12.5 mg PO Q12H 11/04/23 05/09/24 History multivitamin 1 tab PO DAILY 11/04/23 05/09/24 History lacosamide 50 mg tablet (Vimpat) 50 mg PO BID 05/09/24 05/09/24 History Allergies Allergy/AdvReac Type Severity Reaction Status Date / Time levetiracetam (From Keppra) Allergy Severe Unknown Verified 05/09/24 07:16 adhesive Allergy Intermediate Blister Verified 05/09/24 07:16 Penicillins Allergy Intermediate Unknown Verified 05/09/24 07:16 tetracycline Allergy Intermediate Unknown Verified 05/09/24 07:16 eszopiclone (From Lunesta) Allergy Unknown Verified 05/09/24 07:16 milnacipran (From Savella) AdvReac Intermediate Agitated Verified 05/09/24 07:16 prochlorperazine (From AdvReac Intermediate Agitated Verified 05/09/24 07:16 Compazine) Exam Constitutional Documenting provider has reviewed patient's vital signs: yes Common normals: no apparent distress, oriented x3, healthy appearing, alert and well nourished General appearance: cooperative HENMT Common normals: normocephalic, hearing grossly normal bilaterally and moist oral mucous membranes Head and scalp: normocephalic Eye Common normals: PERRL Pupil: PERRL Neck & C-Spine Common normals: full ROM General: normal visual inspection Chest Common normals: inspection of chest normal Respiratory Common normals: normal respiratory effort, no retractions and no use of accessory muscles Back & Pelvis Thoracic spine/upper back: ROM limited Lumbar spine/lower back: ROM limited, pain with ROM, lumbar spinal tenderness, paraspinal muscle tenderness and straight leg raise negative bilaterally; no paraspinal muscle spasm Other: positive facet loading L1-4 strength 5/5 in BLE sensation intact BLE Neuro Common normals: oriented x3, CN's II-XII intact bilaterally, moves all extremities, no focal motor deficits, no sensory deficits noted and deep tendon reflexes 2+ bilaterally Sensorium/orientation: alert Motor exam: strength 5/5 throughout and no movement abnormalities noted Psych Common normals: mental status grossly normal, thought process normal, cooperative, affect normal, speech normal and activity/motor behavior normal Speech: normal speech Thought process: normal thought process Assessment and Plan Assessment and Plan (1) Lumbar spondylosis: Assessment and Plan: The patient has had over 3 months of moderate to severe back pain with functional impairment and inadequate response to conservative care including NSAIDS (unless there are contraindication such as concurrent blood thinners), multiple oral or topical pain medications, and home exercise program/physical therapy.? Patient has completed >6 weeks of guided home exercise program and/or formal physical therapy program without relief of their symptoms.? I have reviewed the imaging of the lumbar spine and no red flags were identified.? The imaging reveals radiographic findings consistent with lumbar spondylosis The Oswestry Disability Index was completed, and the patient scored a 42%.? The patient noted the following:?? moderate to severe pain, pain impacting ADLs, pain impacting ability to sit and walk for longer than 15 minutes, pain interrupting sleep social life and travel We discussed the risks and benefits of the procedure with the patient, and we are NOT planning on using sedation as outlined in the guidelines from Medicare unless there is a documented reason that sedation would be strongly recommended.?? ?The procedure will be completed with fluoroscopic guidance.? Plan bilateral L1-2 L2-3 MBB #2 under fluoroscopy working towards RFA continue current medications continue HEP as tolerated f/u after each injection
== END 2024-05-12 11:03 | disposition home or self-care (01) ==
LOC: PM 11:02
PROVIDERS: PCP Nurse Practitioner; Visit Provider Nurse Practitioner
DX: M47.816 Spondylosis without myelopathy or radiculopathy, lumbar region (principal)
CPT/HCPCS: G0463

== ENCOUNTER 2024-05-23 06:38 | Day surgery (SDC) | payer MEDICARE, SELFPAY ==
--- OUTSIDE RECORDS SUMMARY | 2024-05-23 06:42 | XMS_ITS | CCD ---
Author Organization [facility] Care Team Providers Care Supplier Engineer Name Role Phone EBRAHEIM, SUKI Admitting Unavailable EBRAHEIM, SUKI Attending Unavailable AICHHOLZ, ADELAIDA Referring Unavailable AICHHOLZ, ADELAIDA Primary Care Unavailable MD Procedure Practitioner Unavailab SUKI Jacob Surgeon Unavailable MD Procedure Practitioner Unavailab CHAPARRITA Goncalves Surgeon Unavailable BRIDGETTE MACEDO Admitting Unavailable BRIDGETTE MACEDO Attending Unavailable AICHHOLZ, INTERIOR DESIGN PROJECT MANAGER ADELAIDA Primary Care Unavailable NIXON ., DR FINA Iverson Admitting Unavailable NIXON ., DR FINA Iverson Attending Unavailable AICHHOLZ, INTERIOR DESIGN PROJECT MANAGER DAELAIDA Primary Care Unavailable MCDANIEL ., ZELDA Consulting Unavailable LAKSHMIPATHY ., NARENDRANATH Consulting Paula vailable LAKSHMIPATHY ., NARENDRANATH Admitting Paula vailable LAKSHMIPATHY ., NARENDRANATH Attending Paula vailable AICHHOLZ, INTERIOR DESIGN PROJECT MANAGER ADELAIDA Primary Care Unavailable LAKSHMIPATHY ., NARENDRANATH Consulting Paula vailable AICHHOLZ, INTERIOR DESIGN PROJECT MANAGER ADELAIDA Primary Care Unavailable MARKER ., DR CHAUDHRY Admitting Unavailable MARKER ., DR CHAUDHRY Attending Unavailable MARKER ., DR CHAUDHRY Consulting Unavailable AICHHOLZ, INTERIOR DESIGN PROJECT MANAGER ADELAIDA Admitting Unavailable AICHHOLZ, INTERIOR DESIGN PROJECT MANAGER ADELAIDA Attending Unavailable AICHHOLZ, INTERIOR DESIGN PROJECT MANAGER ADELAIDA Primary Care Unavailable NIXON ., DR FINA Iverson Admitting Unavailable NIXON ., DR FINA Iverson Attending Unavailable AICHHOLZ, INTERIOR DESIGN PROJECT MANAGER ADELAIDA Primary Care Unavailable MCDANIEL ., ZELDA Consulting Unavailable NIXON ., DR FINA Iverson Admitting Unavailable NIXON ., DR FINA Iverson Attending Unavailable AICHHOLZ, INTERIOR DESIGN PROJECT MANAGER ADELAIDA Primary Care Unavailable MCDANIEL ., ZELDA Consulting Unavailable AICHHOLZ, INTERIOR DESIGN PROJECT MANAGER ADELAIDA Admitting Unavailable AICHHOLZ, INTERIOR DESIGN PROJECT MANAGER ADELAIDA Attending Unavailable AICHHOLZ, INTERIOR DESIGN PROJECT MANAGER ADELAIDA Primary Care Unavailable AICHHOLZ, INTERIOR DESIGN PROJECT MANAGER ADELAIDA Consulting Unavailable AICHOLZ, INTERIOR DESIGN PROJECT MANAGER ADELAIDA Admitting Unavailable AICHHOLZ, INTERIOR DESIGN PROJECT MANAGER ADELAIDA Attending Unavailable AICHOLZ, [facility] ADELAIDA Primary Care Unavailable AICHHOLZ, INTERIOR DESIGN PROJECT MANAGER ADELAIDA Consulting Unavailable MISC, DR COTE Admitting Unavailable MISC, DR COTE Attending Unavailable AICHOLZ, [facility] ADELAIDA Primary Care Unavailable AICHHOLZ, INTERIOR DESIGN PROJECT MANAGER ADELAIDA Consulting Unavailable ELYSSA, DR COTE Consulting Unavailable STARR, DR KINGSLEY Atkins Consulting Unavailable NIXON ., DR FINA Iverson Admitting Unavailable NIXON ., DR FINA Iverson Attending Unavailable AICHOLZ, [facility] ADELAIDA Primary Care Unavailable MCDANIEL ., ZELDA Consulting Unavailable NIXON ., DR FINA Iverson Admitting Unavailable NIXON ., DR FINA Iverson [facility]ending [facility] Primary Care Unavailable NIXON ., DR FINA Iverson Consulting Unavailable OMID LAY Consulting Unavailable NIXON ., DR FINA Iverson Admitting Unavailable NIXON ., DR FINA Iverson Attending Unavailable [facility], [facility] Primary Care Unavailable MCDANIEL ., ZELDA Consulting [facility]available [facility] Primary Care Unavailable HALKER ., ARIAN Admitting Unavailable HALKER ., ARIAN Attending Unavailable LAKSHMIPATHY ., NARENDRANATH Consulting Paula vailable HALKER ., ARIAN Consulting Unavailable LAKSHMIPATHY ., NARENDRANATH Admitting Paula vailable LAKSHMIPATHY ., NARENDRANATH Attending Paula vailable [facility] Primary Care Unavailable LAKSHMIPATHY ., NARENDRANATH Consulting Paula vailable AICHOLZ, INTERIOR DESIGN PROJECT MANAGER ADELAIDA Admitting Unavailable AICHOLZ, INTERIOR DESIGN PROJECT MANAGER ADELAIDA Attending Unavailable AICHOLZ, INTERIOR DESIGN PROJECT MANAGER ADELAIDA Primary Care Unavailable AICHHOLZ, INTERIOR DESIGN PROJECT MANAGER ADELAIDA Consulting Unavailable BRIDGETTE MACEDO Admitting Unavailable BRIDGETTE MACEDO Attending Unavailable AICHOLZ, INTERIOR DESIGN PROJECT MANAGER ADELAIDA Primary Care Unavailable STARR, DR KINGSLEY Atkins Consulting Unavailable BRIDGETTE MACEDO Consulting Unavailable GILMER NEVES Admitting Unavailable GILMER NEVES Attending Unavailable PURA, GILMER Consulting Unavailable AICHOLZ, INTERIOR DESIGN PROJECT MANAGER ADELAIDA Primary Care Unavailable AICHOLZ, INTERIOR DESIGN PROJECT MANAGER ADELAIDA Primary Care Unavailable DR WILLI RINALDI Admitting Unavailable DEEJAY, DR WILLI Atkins Attending Unavailable DR WILLI RINALDI Consulting Unavailable AICHOLZ, INTERIOR DESIGN PROJECT MANAGER ADELAIDA Primary Care Unavailable ALMAZ ., DANNY Admitting Unavailable ALMAZ ., DANNY Attending Unavailable DR KINGSLEY CLEMENTS Consulting Unavailable ALMAZ ., DANNY Consulting Unavailable LAKSHMIPATHY ., NARENDRANATH Admitting Paula vailable LAKSHMIPATHY ., NARENDRANATH Attending Paula vailable AICHHOLZ, INTERIOR DESIGN PROJECT MANAGER ADELAIDA Primary Care Unavailable AICHHOLZ, INTERIOR DESIGN PROJECT MANAGER ADELAIDA Admitting Unavailable AICHHOLZ, INTERIOR DESIGN PROJECT MANAGER ADELAIDA Attending Unavailable AICHHOLZ, INTERIOR DESIGN PROJECT MANAGER ADELAIDA Primary Care Unavailable AICHHOLZ, INTERIOR DESIGN PROJECT MANAGER ADELAIDA Admitting Unavailable AICHHOLZ, INTERIOR DESIGN PROJECT MANAGER ADELAIDA Attending Unavailable AICHHOLZ, INTERIOR DESIGN PROJECT MANAGER ADELAIDA Primary Care Unavailable AICHHOLZ, INTERIOR DESIGN PROJECT MANAGER ADELAIDA Consulting Unavailable ZIEBER, DR KINSGLEY Atkins Consulting Unavailable HALKER ., ARIAN Admitting Unavailable HALKER ., ARIAN Attending Unavailable AICHHOLZ, INTERIOR DESIGN PROJECT MANAGER ADELAIDA Primary Care Unavailable Aichholz, Adelaida J Primary Care Provider [phone] MD Gaudencio Monk Admit Provider MD Gaudencio Monk Attending Provider JOHANN Vieira Other Provider Unavailable JOHANN Pina Other Provider Unavailable JOHANN Hurtado Other Provider Unavailable JOHANN Crooks Other Provider Unavailable JOHANN Mejias Other Provider Unavailable JOHANN Kim Other Provider Unavailable MD Walker Pringle Other Provider Dilans, SLAB WORKER Adelaida Huddleston Other Provider DO Jessica Murillo Other Provider [phone] MD Obdulio Bragg Other Provider [phone] DO Joon Cristina Other Provider MD Torin Robert Other Provider MD Dawn Barrera Other Provider Karlene ANP- Mari Other Provider [phone] MD Sofi Almanzar Other Provider [phone] MD Sharad Gallegos Other Provider MD [...] Graham Unavailable Adelaida Carrion Primary Care Provider [phone] MD Jace Graham Attending Provider Sheyla EMERY GRINDER, Adelaida Unavailable José Luis Roberts MD Primary Care Provider Sheyla EMERY GRINDER, Adelaida Unavailable Daniela GRAHAM, Miriam Unavailable Moises VALEN, Diana Unavailable Unavailable Unallocated , Noms Provider Primary Care Provi kellee Aicjosue EMERY GRINDER, Adelaida Unavailable José Luis Roberts MD Primary Care Provider [phone] Alonzo STARK, Bong Unavailable Unavailable Aida VALEN, Mathew Unavailable Unavailable Aleshia, Eduardo Admitting Unavailab le Aleshia, Eduardo Attending Unavailab le Aichholz, Adelaida J Primary Care Unavailable Aichkushz, Adelaida J Primary Care Unavailable Rob Lake Attending Unavailable Malinda Rosales Consulting Unavailable Delta Gan Admitting Unavailable David Foster Consulting Unavailable Miriam Suarez Consulting Unavailable Kingsley Livingston Consulting Unavailable Kra Burt Consulting Unavailab Dennis Hicks Consulting Unavailable Juany Caballero Consulting Unavailable Inna Melendez Consulting Unavailable Rocio Duncan Consulting Unavailable Chuck Hinkle Consulting Unavailable Gileonid JAIMES, Syeda King Attending Unavailable Giedraitis , Syeda King Attending Unavailable Giedraitis , Syeda King Attending Unavailable AICHHOLZ, ADELAIDA Attending Unavailable AICHHOLZ, ADELAIDA Attending Unavailable ASHLEIGH HINES Attending Unavailable AICHHOLZ, ADELAIDA Attending Unavailable AICHHOLZ, ADELAIDA Attending Unavailable AICHHOLZ, ADELAIDA Attending Unavailable AICHHOLZ, ADELAIDA Attending Unavailable AICHHOLZ, ADELAIDA Attending Unavailable WINDNAHAMILTON SONAM C Attending Unavailable AICHHOLZ, ADELAIDA Attending Unavailable WINDNAGEL, SONAM C Attending Unavailable JUANY CABALLERO Attending Unavailable AICHHOLZ, ADELAIDA Attending Unavailable AICHHOLZ, ADELAIDA Attending Unavailable AICHHOLZ, ADELAIDA Attending Unavailable JUANY LEGGETT Attending Unavailable RACHEL MITCHELL Attending Unavailable DAVID FOSTER Attending Unavailable JUANY LEGGETT Referring Unavailable YINGHHOLZ, ADELAIDA Attending Unavailable RACHEL MITCHELL Referring Unavailable Allergies Allergy Classification Reported Allergen(s) Allergy Type Date of Onset Reaction(s) Facility (7 sources) Adhesive Tape; Translations: [ADHESIVE TAPE] Propensity to adverse reactions (disorder) 04-06-19 14 rash [facility] Repository (3 sources) levETIRAcetam; Translations: [KEPPRA] Drug Allergy 07-02-19 19 [facility] Repository (3 sources) milnacipran; Translations: [SAVELLA] Drug Allergy 03-14-20 13 [facility] Repository (1 source) Penicillin; Translations: [PENICILLIN] Drug Allergy 01-16-20 18 [facility] Repository (5 sources) Prochlorperazin e; Translations: [COMPAZINE] Drug Allergy 03-14-20 13 agitation [facility] Repository (20 sources) Tetracycline; Translations: [TETRACYCLINE] Drug Allergy 04-06-19 13 Hives, Unknown [facility] Repository (4 sources) Penicillins Drug allergy (disorder) 04-06-19 13 Unknown Reaction [facility] Repository (20 sources) levETIRAcetam; Translations: [levetiracetam] Drug Allergy 12-13-19 22 Hallucinations , Other [facility] (20 sources) milnacipran; Translations: [milnacipran] Drug Allergy 12-13-19 22 hives, Hallucinations , Other, Unknown [facility] (20 sources) Prochlorperazin e; Translations: [prochlorperazi ne] Drug Allergy 12-13-19 22 Unknown, Other [facility] (2 sources) Penicillin G Drug Allergy as a child [employer] Other (2 sources) Tetracaine Drug Allergy Unknown [employer] Other (20 sources) Penicillins Drug Intolerance 12-13-19 22 Anaphylaxis [facility] (20 sources) Other Propensity to adverse reactions 12-13-19 22 Other [facility] (20 sources) Wound Dressing Adhesive Drug Allergy 09-20-19 23 Rash, Unknown [facility] (20 sources) Eszopiclone Drug Allergy 09-21-19 24 Hallucinations , Anaphylaxis [facility] (1 source) Penicillin Drug Allergy 03-02-20 24 [facility] Repository (1 source) Penicillins Drug allergy (disorder) 03-02-20 [facility] Repository (1 source) Tetracaine Drug Allergy 03-02-20 [facility] Repository Medications Current Medications Medication Drug Class(es) Dates Sig (Normalized) Sig (Original) amLODIPine 10 mg oral tablet (20 sources) Dihydropyridine Calcium Channel Jim Start: 10-05-2023 End: 06-11-2024 take 1 tablet by mouth once daily amLODIPine (Norvasc) 10 MG tablet Indications: Essential (primary) hypertension (CMS/HCC) Take 1 tablet (10 mg) by mouth Daily 30 tablet 5 05/12/2024 06/11/2024 Active Start: 11-17-2022 take 10 mg by [...] 5 MG tabl et Pt taking OTC ([employer]la) Active biotin 1 MG caps ule Biotin [...] (CITRACAL + D PO) Pt taking OTC ([employer]) Active Calcium Citrate- Vitamin D (CITRACAL + D PO) Citracal + D 0 Active cariprazine 3 mg oral capsule (20 sources) Atypical Antipsychotic Start: 03-10-2024 Vraylar 3 MG capsule 03/10/2024 Active Start: 09-21-2023 take 1 capsule by mo uth once daily Cariprazine HCl (Vraylar) 4.5 MG capsule Take 4.5 mg by mouth Daily 09/21/2023 Active Start: 11-17-2022 take 1 capsule by mo uth once daily Cariprazine (Vraylar) 4.5 mg capsule Active 4.5 MG PO Daily November 16, 2022 11:00pm carvedilol 12.5 mg oral tablet (20 sources) alpha-Adrenergic Jim, beta-Adrenergic Jim Start: 10-05-2023 End: 06-11-2024 take 1 tablet by mouth in the morning carvedilol (Coreg) 12.5 MG tablet Indications: Essential (primary) hypertension (CMS/HCC) Take 1 tablet (12.5 mg) by mouth in the morning and 1 tablet (12.5 mg) in the evening. Take with meals. 60 tablet 5 05/12/2024 06/11/2024 Active Start: 04-29-2023 End: 05-29-2023 take 1 [...] sources) Histamine-1 Receptor Antagonist Start: 10-05-2023 End: 06-11-2024 take 1 tablet by mouth once daily cetirizine (ZyrTEC) 10 MG tablet Indications: Allergic rhinitis, unspecified Take 1 tablet (10 mg) by mouth Daily 30 tablet 5 05/12/2024 06/11/2024 Active Start: 11-17-2022 take 10 mg by [...] bedtime. Due 04/13/24. 60 tablet 1 04/12/2024 Active Start: 12-13-2023 End: 03-10-2024 take 1 [...] tablet (20 sources) Azole Antifungal Start: 03-09-2024 End: 05-12-2024 fluconazole (Diflucan) 100 MG tablet 03/09/2024 05/12/2024 Discontinued (Therapy completed) Start: 11-27-2023 End: 05-12-2024 fluconazole (Diflucan) 150 M G tablet Indications: Yeast infection of the skin 1 pill every 3 days for a total of 3 doses 3 tablet 1 03/02/2024 05/12/2024 Discontinued (Therapy completed) Start: 05-18-2023 End: 05-18-2023 fluconazole (Diflucan) 150 [...] spray (20 sources) Corticosteroid Start: 02-29-2024 End: 06-11-2024 take 2 spray(s) nasal route once daily fluticasone (Flonase) 50 MCG/ACT nasal spray Indications: Allergic rhinitis, unspecified Administer 2 sprays into each nostril Daily 16 g 5 05/12/2024 06/11/2024 Active Start: 10-05-2023 End: 02-03-2024 take 2 [...] 0 Active lacosamide 50 mg oral tablet (10 sources) Anti-epileptic Agent Start: End: take 1 tablet by mouth in the morning lacosamide (Vimpat) 50 MG tablet Indications: Transient alteration of awareness Take 1 tablet (50 mg) by mouth in the morning and 1 tablet (50 mg) before bedtime. Due now. 60 tablet 2 04/12/2024 Active losartan potassium 100 mg oral tablet (20 sources) Angiotensin 2 Receptor Jim Start: 4 End: take 1 tablet by mouth once daily losartan (Cozaar) 100 MG tablet Indications: Essential (primary) hypertension (CMS/HCC) Take 1 tablet (100 mg) by mouth Daily 30 tablet 5 05/12/2024 06/11/2024 Active Start: 11-17-2022 take 100 mg by mouth once lissett y Losartan Active 100 MG PO Daily November 16, 2022 11:00pm Magnesium (20 sources) Magnesium 400 MG capsule Pt taking OTC([employer]) Active Magnesium 400 MG capsule magnesium 0 [...] s-Minerals (BARIATRIC MULTIVITAMINS/IRON PO) Pt taking OTC ([employer]) Active Multiple Vitamin s-Minerals (BARIATRIC MULTIVITAMINS/IRON PO) Bariatric Multivitamins/Iron 0 Active Mdsfjcixvduc-Fgr-Ekqr-Fa-Vit K (Bariatric Multivitamins) 45 mg iron- 800 mcg-120 mcg Capsule (2 sources) Start: 11-17-2022 take 1 capsule by mouth once daily Gqfftgnmfift-Wid-Bnuf-Fa-Vit K (Bariatric Multivitamins) 45 mg iron- 800 mcg-120 mcg Capsule Active 1 CAP PO Daily November 16, 2022 11:00pm Start: 11-17-2022 take 1 capsule by mo uth once daily Pxykcxphqefs-Fvu-Lxuf-Fa-Vit K (Bariatri c Multivitamins) 45 mg iron- 800 mcg-120 mcg Capsule Active 1 CAP PO Daily November 17, 2022 12:00am nystatin [id number] unt/ml topical cream (20 sources) Polyene Antifungal Start: 03-07-2024 nystatin (M ycostatin) cream 03/07/2024 Active nystatin (Mycost atin) 162944 UNIT/GM powder Apply 1 application topically in [...] sources) Proton Pump Inhibitor Start: 10-05-2023 End: 06-11-2024 take 1 capsule by mouth before mealtime omeprazole (PriLOSEC) [address] capsule Indications: Gastro-esophageal reflux disease without esophagitis Take 1 capsule (20 mg) by mouth in the morning. Take before meals. 30 capsule 5 05/12/2024 06/11/2024 Active Start: 11-17-2022 take 20 mg by [...] (20 sources) Aldosterone Antagonist Start: 03-16-2024 End: 06-11-2024 take 1 tablet by mouth once daily spironolactone (Aldactone) 50 MG tablet Indications: Bilateral lower extremity edema Take 1 tablet (50 mg) by mouth Daily 30 tablet 5 05/12/2024 06/11/2024 Active Start: 11-02-2023 End: 03-16-2024 take 2 [...] 11-17-2022 Tizanidine Act hemant 2 MG PO 09,1399November 16, 2022 11:00pm [...] vessels] Onset: 05-18-19 Resolved : 03-16-2005-18-2023 Chronic Chronic kidney disease (5 sources) Chronic kidney disease stage 3A ; Translations: [Chronic kidney disease, stage 3a (HCC)] Onset: 05-12-1905-12-2024 Chronic Conduction disorders (10 sources) EKG: right bundle branch block; Translations: [...] disorder] Onset: 07-17-19 Resolved : 03-16-20 Chronic Mood disorders (20 sources) Bipolar disorder, current episode depressed, severe, without psychotic features; Translations: [Unspecified mood [affective] disorder] Onset: 11-23-19 Resolved : 03-16-20 24 11-17-2022 Chronic Osteoarthritis (20 sources) Primary osteoarthritis, right ankle and foot; Translations: [Osteoarthritis of knee] Onset: 10-03-19 18 03-25-2023 Chronic Osteoporosis (20 sources) Osteoporosis; Translations: [Age-related osteoporosis without current pathological fracture] Onset: 05-18-1905-18-2023 Chronic Other and ill-defined heart disease (20 [...] Chronic Other nutritional; endocrine; and metabolic disorders (9 sources) Body mass index 40+ - severely obese; Translations: [Morbid (severe) obesity due to excess calories] Onset: 05-12-1911-18-2022 Chronic Other nutritional; endocrine; and metabolic disorders (1 source) Morbid (severe) obesity due to excess calories; Translations: [Morbid obesity] 11-20-2022 Chronic Other nutritional; endocrine; and metabolic disorders (20 sources) Morbid obesity; Translations: [Morbid (severe) obesity due to excess calories] Onset: 03-25-2003-25-2023 Chronic Other nutritional; endocrine; and metabolic disorders (5 sources) Obesity caused by energy imbalance; Translations: [Morbid (severe) obesity due to excess calories] Onset: 03-25-2005-12-2024 Chronic Other upper respiratory disease (20 sources) Allergic rhinitis; Translations: [Allergic rhinitis, unspecified] Onset: 05-18-1905-18-2023 Chronic Paralysis (20 sources) Right hemiparesis; Translations: [Hemiplegia, unspecified affecting right dominant side] Onset: 05-18-1905-18-2023 Chronic Residual codes; unclassified (1 source) Sleep apnea, unspecified; Translations: [SLEEP APNEA UNSPECIFIED] Onset: 07-17-19 Chronic Residual codes; unclassified (20 sources) Obstructive sleep apnea syndrome; Translations: [Obstructive sleep apnea (adult) (pediatric)] Onset: 05-18-19 24 11-18-2022 Chronic Residual codes; unclassified (1 source) Obstructive sleep apnea (adult) (pediatric); Translations: [Obstructive sleep apnea (adult)(pediatric)] 11-20-2022 Chronic Residual codes; unclassified (20 sources) Bilateral lower limb edema; Translations: [Localized edema] Onset: 10-05-1910-05-2023 Episodic Residual codes; unclassified (8 sources) Memory impairment; [...] pain ] Onset: 08-24-19 22 11-20-2022 Episodic Unclassified (3 sources) LOW BACK PAIN, UNSPECIFIED; Translations: [LOW BACK PAIN, UNSPECIFIED] Onset: 06-30-19 23 Past or Other Problems Problem Classification Problem [...] hemorrhoids] Onset: 05-18-2023 Resolved: 03-16-2024 05-18-2023 Episodic Immunizations and screening for infectious disease (20 sources) Encounter for immunization; Translations: [Needs influenza immunization] Onset: 02-21-2022 01-28-2024 Episodic Influenza (20 sources) Influenza; Translations: [Influenza [...] 05-18-2023 Episodic Other aftercare (1 source) Other penitentiary (current) drug therapy; Translations: [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] Onset: 04-29-2022 Episodic Other [...] not elsewhere classified] Onset: 08-26-2023 09-21-2023 Episodic Respiratory failure; insufficiency; arrest (adult) (20 [...] PAIN, UNSPECIFIED] Onset: 06-26-2022 Urinary tract infections (20 sources) Urinary tract infectious disease; Translations: [Urinary tract infection, site not specified] Onset: 05-21-2023 Resolved: 10-21-2023 11-18-2022 Episodic Viral infection (20 sources) Herpes zoster; Translations: [Zoster without complications] Onset: 05-18-2023 Resolved: 05-18-2023 05-18-2023 Episodic Results Test Name Value Interpretation Reference Range Facility Complete Blood Count Auto Di ffon 03-05-2024 Basophils (Bld) [#/Vol] 0.0 10*3/uL Normal 0.0-0.2 [facility] Comment on above: Result Comment: PERF ORMED BY: [place] [address] PATHOLOGIST SENIOR ANDROID DEVELOPER ADIEL AGUSTIN M.D. Performed By: #### C BC, MG, CMP #### [facility] [address] [place] [address] Basophils/100 WBC (Bld) 0.5 % Normal . [facility] Comment on above: Performed By: #### C BC, MG, CMP #### [facility] [address] [place] [address] [place] Eosinophils (Bld) [#/Vol] 0.2 10*3/uL Normal 0.0-0.45 [facility] Comment on above: Performed By: #### C BC, MG, CMP #### [facility] [address] [place] [address] [place] Eosinophils/100 WBC (Bld) 2.2 % Normal . [facility] Comment on above: Performed By: #### C BC, MG, CMP #### [address] Erythrocyte distribution width (RBC) [Ratio] 14.5 % Normal 11.9-15.3 [facility] Comment on above: Performed By: #### C BC, MG, CMP #### [address] Hematocrit (Bld) [Volume fraction] 43.0 % Normal 34.0-46.4 [facility] Comment on above: Performed By: #### C BC, MG, CMP #### [address] Hemoglobin (Bld) [Mass/Vol] 14.3 g/dL Normal 11.8-15.4 [facility] Comment on above: Performed By: #### C BC, MG, CMP #### [address] Lymphocytes (Bld) [#/Vol] 1.8 10*3/uL Normal 1.00-4.8 [facility] Comment on above: Performed By: #### C BC, MG, CMP #### [address] Lymphocytes/100 WBC (Bld) 18.9 % Normal . [facility] Comment on above: Performed By: #### C BC, MG, CMP #### [address] MCH (RBC) [Entitic mass] 29.0 pg Normal 24.7-34.3 [facility] Comment on above: Performed By: #### C BC, MG, CMP #### [address] MCV (RBC) [Entitic vol] 87.0 fL Normal 80-100 [facility] Comment on above: Performed By: #### C BC, MG, CMP #### [address] Mean Corpuscular HGB Conc 33.4 g/dL Normal 32.0-35.0 [facility] Comment on above: Performed By: #### C BC, MG, CMP #### [facility] [address] Monocytes (Bld) [#/Vol] 0.5 10*3/uL Normal 0.0-0.8 [facility] Comment on above: Performed By: #### C BC, MG, CMP #### [facility] [address] [place] [address] [place] Monocytes/100 WBC (Bld) 5.5 % Normal . [facility] Comment on above: Performed By: #### C BC, MG, CMP #### [address] Neutrophils (Bld) [#/Vol] 7.0 10*3/uL Normal 1.8-7.7 [facility] Comment on above: Performed By: #### C BC, MG, CMP #### [address] Neutrophils/100 WBC (Bld) 72.9 % Normal . [facility] Comment on above: Performed By: #### C BC, MG, CMP #### [place] [address] [place] NRBC% 0.0 /100{WBC} Normal 0-0.5 [facility] Comment on above: Performed By: #### C BC, MG, CMP #### [place] [address] [place] Platelet mean volume (Bld) [Entitic vol] 8.9 fL Normal 6.3-10.7 [facility] Comment on above: Performed By: #### C BC, MG, CMP #### [facility] [address] [place] [address] [place] Platelets (Bld) [#/Vol] 289 10*3/uL Normal 150-450 [facility] Comment on above: Performed By: #### C BC, MG, CMP #### [place] [address] [place] RBC (Bld) [#/Vol] 4.94 10*6/uL Normal 3.60-5.00 [facility] Comment on above: Performed By: #### C BC, MG, CMP #### [address] WBC (Bld) [#/Vol] 9.6 10*3/uL Normal 3.8-11.6 The [facility] Comment on above: Performed By: #### C BC, MG, CMP #### [address] Comprehensive Metabolic Pane [place] 03-05-2024 Albumin [Mass/Vol] 4.4 g/dL Normal 3.5-5.7 The [facility] Comment on above: Performed By: #### C BC, MG, CMP #### [address] Albumin/Globulin [Mass ratio] 1.3 {ratio} Normal [facility] Comment on above: Performed By: #### C BC, MG, CMP #### [address] ALP [Catalytic activity/Vol] 79 U/L Normal 34-104 [facility] Comment on above: Performed By: #### C BC, MG, CMP #### [address] ALT [Catalytic activity/Vol] 23 U/L Normal 7-52 [facility] Comment on above: Performed By: #### C BC, MG, CMP #### [address] Anion gap [Moles/Vol] 15.4 mmol/L High 6.0-15.0 [facility] Comment on above: Performed By: #### C BC, MG, CMP #### [address] AST [Catalytic activity/Vol] 36 U/L Normal 13-39 [facility] Comment on above: Performed By: #### C BC, MG, CMP #### [place] [id number] [place] Bilirubin [Mass/Vol] 0.4 mg/dL Normal 0.3-1.0 [facility] Comment on above: Performed By: #### C BC, MG, CMP #### [address] Calcium [Mass/Vol] 9.5 mg/dL Normal 8.6-10.3 [facility] Comment on above: Performed By: #### C BC, MG, CMP #### [address] Chloride [Moles/Vol] 106 mmol/L Normal 98-107 [facility] Comment on above: Performed By: #### C BC, MG, CMP #### [address] CO2 [Moles/Vol] 23.1 mmol/L Normal 21.0-31.0 The [facility] Comment on above: Performed By: #### C BC, MG, CMP #### [address] Creatinine [Mass/Vol] 0.96 mg/dL Normal 0.60-1.20 [facility] Comment on above: Performed By: #### C BC, MG, CMP #### [address] Creatinine Clr Calc Pharmacy 84.51 Normal [facility] Comment on above: Performed By: #### C BC, MG, CMP #### [address] GFR/1.73 sq M.predicted MDRD (S/P/Bld) [Vol rate/Area] mL/min/{1.73_m2} Normal [facility] Comment on above: Performed By: #### C BC, MG, CMP #### [address] Globulin (S) [Mass/Vol] 3.3 g/dL Normal [facility] Comment on above: Performed By: #### C BC, MG, CMP #### [place] [address] Glucose [Mass/Vol] 133 mg/dL High 70-100 The [facility] Comment on above: Result Comment: [facility] [place] Glucose Reference Range is dependent on time and content of last meal. Glucose of more than 200 mg/dL in a nonstressed, ambulatory subject supports the diagnosis of Diabetes Mellitus. ADA recommended reference range Performed By: #### C BC, MG, CMP #### [address] Potassium [Moles/Vol] 3.5 mmol/L Normal 3.5-5.1 [facility] Comment on above: Performed By: #### C BC, MG, CMP #### [address] Protein [Mass/Vol] 7.7 g/dL Normal 6.4-8.9 [facility] Comment on above: Performed By: #### C BC, MG, CMP #### [address] Sodium [Moles/Vol] 141 mmol/L Normal 136-145 [facility] Comment on above: Performed By: #### C BC, MG, CMP #### [address] Urea nitrogen [Mass/Vol] 18 mg/dL Normal 7-25 [facility] Comment on above: Performed By: #### C BC, MG, CMP #### [address] Magnesiumon 03-05-2024 Magnesium [Mass/Vol] 2.0 mg/dL Normal 1.9-2.7 [facility] Comment on above: Result Comment: PERF ORMED BY: [place] [address] PATHOLOGIST SENIOR ANDROID DEVELOPER ADIEL AGUSTIN M.D. Performed By: #### C BC, MG, CMP #### [address] Complete Blood Count Auto Di ffon 03-04-2024 Basophils (Bld) [#/Vol] 0.1 10*3/uL Normal 0.0-0.2 [facility] Comment on above: Result Comment: PERF ORMED BY: [place] [address] PATHOLOGIST SENIOR ANDROID DEVELOPER ADIEL AGUSTIN M.D. Performed By: #### C MP, MG, CBC #### [address] Basophils/100 WBC (Bld) 0.6 % Normal . [facility] Comment on above: Performed By: #### C MP, MG, CBC #### [address] Eosinophils (Bld) [#/Vol] 0.2 10*3/uL Normal 0.0-0.45 [facility] Comment on above: Performed By: #### C MP, MG, CBC #### [address] Eosinophils/100 WBC (Bld) 1.9 % Normal . [facility] Comment on above: Performed By: #### C MP, MG, CBC #### [address] Erythrocyte distribution width (RBC) [Ratio] 14.6 % Normal 11.9-15.3 [facility] Comment on above: Performed By: #### C MP, MG, CBC #### [address] Hematocrit (Bld) [Volume fraction] 43.5 % Normal 34.0-46.4 [facility] Comment on above: Performed By: #### C MP, MG, CBC #### [address] Hemoglobin (Bld) [Mass/Vol] 14.4 g/dL Normal 11.8-15.4 [facility] Comment on above: Performed By: #### C MP, MG, CBC #### [address] Lymphocytes (Bld) [#/Vol] 1.8 10*3/uL Normal 1.00-4.8 [facility] Comment on above: Performed By: #### C MP, MG, CBC #### [address] Lymphocytes/100 WBC (Bld) 18.0 % Normal . [facility] Comment on above: Performed By: #### C MP, MG, CBC #### [address] MCH (RBC) [Entitic mass] 28.8 pg Normal 24.7-34.3 [facility] Comment on above: Performed By: #### C MP, MG, CBC #### [address] MCV (RBC) [Entitic vol] 87.0 fL Normal 80-100 [facility] Comment on above: Performed By: #### C MP, MG, CBC #### [address] Mean Corpuscular HGB Conc 33.2 g/dL Normal 32.0-35.0 [facility] Comment on above: Performed By: #### C MP, MG, CBC #### [address] Monocytes (Bld) [#/Vol] 0.8 10*3/uL Normal 0.0-0.8 [facility] Comment on above: Performed By: #### C MP, MG, CBC #### [address] Monocytes/100 WBC (Bld) 8.2 % Normal . [facility] Comment on above: Performed By: #### C MP, MG, CBC #### [address] Neutrophils (Bld) [#/Vol] 7.3 10*3/uL Normal 1.8-7.7 [facility] Comment on above: Performed By: #### C MP, MG, CBC #### [address] Neutrophils/100 WBC (Bld) 71.3 % Normal . [facility] Comment on above: Performed By: #### C MP, MG, CBC #### [address] NRBC% 0.1 /100{WBC} Normal 0-0.5 The [facility] Comment on above: Performed By: #### C MP, MG, CBC #### [address] Platelet mean volume (Bld) [Entitic vol] 8.8 fL Normal 6.3-10.7 The [facility] Comment on above: Performed By: #### C MP, MG, CBC #### [address] Platelets (Bld) [#/Vol] 334 10*3/uL Normal 150-450 [facility] Comment on above: Performed By: #### C MP, MG, CBC #### [address] RBC (Bld) [#/Vol] 5.01 10*6/uL High 3.60-5.00 [facility] Comment on above: Performed By: #### C MP, MG, CBC #### [address] WBC (Bld) [#/Vol] 10.3 10*3/uL Normal 3.8-11.6 [facility] Comment on above: Performed By: #### C MP, MG, CBC #### [address] Comprehensive Metabolic Pane [place] 03-04-2024 Albumin [Mass/Vol] 4.5 g/dL Normal 3.5-5.7 The [facility] Comment on above: Performed By: #### C MP, MG, CBC #### [address] Albumin/Globulin [Mass ratio] 1.4 {ratio} Normal [facility] Comment on above: Performed By: #### C MP, MG, CBC #### [facility] [address] ALP [Catalytic activity/Vol] 79 U/L Normal 34-104 [facility] Comment on above: Performed By: #### C MP, MG, CBC #### [facility] [address] ALT [Catalytic activity/Vol] 19 U/L Normal 7-52 [facility] Comment on above: Performed By: #### C MP, MG, CBC #### [facility] [address] Anion gap [Moles/Vol] 11.4 mmol/L Normal 6.0-15.0 Th [facility] Comment on above: Performed By: #### C MP, MG, CBC #### [address] AST [Catalytic activity/Vol] 37 U/L Normal 13-39 [facility] Comment on above: Performed By: #### C MP, MG, CBC #### [address] Bilirubin [Mass/Vol] 0.5 mg/dL Normal 0.3-1.0 [facility] Comment on above: Performed By: #### C MP, MG, CBC #### [address] Calcium [Mass/Vol] 9.6 mg/dL Normal 8.6-10.3 [facility] Comment on above: Performed By: #### C MP, MG, CBC #### [place] [address] [place] Chloride [Moles/Vol] 107 mmol/L Normal 98-107 [facility] Comment on above: Performed By: #### C MP, MG, CBC #### [place] [address] [place] CO2 [Moles/Vol] 27.4 mmol/L Normal 21.0-31.0 The [facility] Comment on above: Performed By: #### C MP, MG, CBC #### [address] Creatinine [Mass/Vol] 0.91 mg/dL Normal 0.60-1.20 [facility] Comment on above: Performed By: #### C MP, MG, CBC #### [address] Creatinine Clr Calc Pharmacy 90.12 Normal [facility] Comment on above: Performed By: #### C MP, MG, CBC #### [place] [address] [place] GFR/1.73 sq M.predicted MDRD (S/P/Bld) [Vol rate/Area] mL/min/{1.73_m2} Normal [facility] Comment on above: Performed By: #### C MP, MG, CBC #### [address] Globulin (S) [Mass/Vol] 3.2 g/dL Normal [facility] Comment on above: Performed By: #### C MP, MG, CBC #### [address] Glucose [Mass/Vol] 100 mg/dL Normal 70-100 [facility] Comment on above: Result Comment: [facility] [place] Glucose Reference Range is dependent on time and content of last meal. Glucose of more than 200 mg/dL in a nonstressed, ambulatory subject supports the diagnosis of Diabetes Mellitus. ADA recommended reference range Performed By: #### C MP, MG, CBC #### [address] Potassium [Moles/Vol] 3.8 mmol/L Normal 3.5-5.1 [facility] Comment on above: Performed By: #### C MP, MG, CBC #### [address] Protein [Mass/Vol] 7.7 g/dL Normal 6.4-8.9 [facility] Comment on above: Performed By: #### C MP, MG, CBC #### [place] [address] [place] Sodium [Moles/Vol] 142 mmol/L Normal 136-145 [facility] Comment on above: Performed By: #### C MP, MG, CBC #### [facility] [address] Urea nitrogen [Mass/Vol] 15 mg/dL Normal 7-25 [facility] Comment on above: Performed By: #### C MP, MG, CBC #### [facility] [address] [place] [id number] [facility] MR head/brain wo/w conon MR head/brain wo/w con [facility] [place] [address] [place] [address] MRI Report Signed Patient: Michelle Be MR#: [id number] : 1960 Acct:[id number] Age/Sex: 63 / F ADM Date: 03/03/24 Loc: Room: [address] [place] [address] Type: ADM IN Attending Dr: Delta Gan [...] Willi Guadalupe M.D.03/04/2024 2:32 PM Dictation Location: [place] [address] Transcribed By: [facility] 03/04/24 1432 Dictated By: Willi Guadalupe II, MD 03/04/24 142 Signed By: 03/04/24 143 Normal [facility] Magnesiumon 03-04-2024 Magnesium [Mass/Vol] 2.0 mg/dL Normal 1.9-2.7 [facility] Comment on above: Result Comment: PERF ORMED BY: [place] [address] PATHOLOGIST SENIOR ANDROID DEVELOPER ADIEL AGUSTIN M.D. Performed By: #### C MP, MG, CBC #### [address] Complete Blood Count Auto Di ffon 03-03-2024 Basophils (Bld) [#/Vol] 0.1 10*3/uL Normal 0.0-0.2 [facility] Comment on above: Order Comment: REY PORRAS,WEN,160 Result Comment: PERF ORMED BY: [place] [address] PATHOLOGIST SENIOR ANDROID DEVELOPER ADIEL AGUSTIN M.D. Performed By: #### C BC, CMP #### [address] Basophils/100 WBC (Bld) 0.6 % Normal . [facility] Comment on above: Order Comment: REY PORRAS,WEN,160 Performed By: #### C BC, CMP #### [address] Eosinophils (Bld) [#/Vol] 0.1 10*3/uL Normal 0.0-0.45 [facility] Comment on above: Order Comment: RIN T O COME TRY,KAH,1607 Performed By: #### C BC, CMP #### [address] Eosinophils/100 WBC (Bld) 1.0 % Normal . [facility] Comment on above: Order Comment: RIN T O COME TRY,KAH,1607 Performed By: #### C BC, CMP #### [address] Erythrocyte distribution width (RBC) [Ratio] 14.6 % Normal 11.9-15.3 [facility] Comment on above: Order Comment: RIN T O COME TRY,KAH,1607 Performed By: #### C BC, CMP #### [address] Hematocrit (Bld) [Volume fraction] 42.9 % Normal 34.0-46.4 [facility] Comment on above: Order Comment: RIN T O COME TRY,KAH,1607 Performed By: #### C BC, CMP #### [address] Hemoglobin (Bld) [Mass/Vol] 14.5 g/dL Normal 11.8-15.4 [facility] Comment on above: Order Comment: RIN T O COME TRY,KAH,1607 Performed By: #### C BC, CMP #### [place] [address] [place] Lymphocytes (Bld) [#/Vol] 1.7 10*3/uL Normal 1.00-4.8 [facility] Comment on above: Order Comment: RIN T O COME TRY,KAH,1607 Performed By: #### C BC, CMP #### [place] [address] [place] Lymphocytes/100 WBC (Bld) 15.7 % Normal . [facility] Comment on above: Order Comment: RIN T O COME TRY,KAH,1607 Performed By: #### C BC, CMP #### [place] [address] [place] MCH (RBC) [Entitic mass] 29.1 pg Normal 24.7-34.3 [facility] Comment on above: Order Comment: RIN T O COME TRY,KAH,1607 Performed By: #### C BC, CMP #### [address] MCV (RBC) [Entitic vol] 85.9 fL Normal 80-100 [facility] Comment on above: Order Comment: RIN T O COME TRY,KAH,1607 Performed By: #### C BC, CMP #### [address] Mean Corpuscular HGB Conc 33.8 g/dL Normal 32.0-35.0 [facility] Comment on above: Order Comment: RIN T O COME TRY,KAH,1607 Performed By: #### C BC, CMP #### [address] Monocytes (Bld) [#/Vol] 0.9 10*3/uL High 0.0-0.8 [facility] Comment on above: Order Comment: RIN T O COME TRY,KAH,1607 Performed By: #### C BC, CMP #### [address] Monocytes/100 WBC (Bld) 8.4 % Normal . [facility] Comment on above: Order Comment: RIN T O COME TRY,KAH,1607 Performed By: #### C BC, CMP #### [address] Neutrophils (Bld) [#/Vol] 8.0 10*3/uL High 1.8-7.7 [facility] Comment on above: Order Comment: RIN T O COME TRY,KAH,1607 Performed By: #### C BC, CMP #### [address] Neutrophils/100 WBC (Bld) 74.3 % Normal . [facility] Comment on above: Order Comment: RIN T O COME TRY,KAH,1607 Performed By: #### C BC, CMP #### [address] [place] [address] [place] NRBC% 0.1 /100{WBC} Normal 0-0.5 The [facility] Comment on above: Order Comment: RIN T O COME TRY,KAH,1607 Performed By: #### C BC, CMP #### [facility] [address] Platelet mean volume (Bld) [Entitic vol] 8.9 fL Normal 6.3-10.7 [facility] Comment on above: Order Comment: RIN T O COME TRY,KAH,1607 Performed By: #### C BC, CMP #### [facility] [address] Platelets (Bld) [#/Vol] 291 10*3/uL Normal 150-450 [facility] Comment on above: Order Comment: RIN T O COME TRY,KAH,1607 Performed By: #### C BC, CMP #### [facility] [address] RBC (Bld) [#/Vol] 4.99 10*6/uL Normal 3.60-5.00 [facility] Comment on above: Order Comment: RIN T O COME TRY,KAH,1607 Performed By: #### C BC, CMP #### [address] WBC (Bld) [#/Vol] 10.7 10*3/uL Normal 3.8-11.6 [facility] Comment on above: Order Comment: RIN T O COME TRY,KAH,1607 Performed By: #### C BC, CMP #### [place] [id number] [facility] Comprehensive Metabolic Pane [place] 03-03-2024 Albumin [Mass/Vol] 4.6 g/dL Normal 3.5-5.7 [facility] Comment on above: Order Comment: RIN T O COME TRY,KAH,1607 Performed By: #### C BC, CMP #### [address] Albumin/Globulin [Mass ratio] 1.4 {ratio} Normal [facility] Comment on above: Order Comment: RIN T O COME TRY,KAH,1607 Performed By: #### C BC, CMP #### [facility] [address] [place] [id number] [facility] ALP [Catalytic activity/Vol] 80 U/L Normal 34-104 [facility] Comment on above: Order Comment: RIN T O COME TRY,KAH,1607 Performed By: #### C BC, CMP #### [facility] [address] ALT [Catalytic activity/Vol] 16 U/L Normal 7-52 [facility] Comment on above: Order Comment: RIN T O COME TRY,KAH,160 Performed By: #### C BC, CMP #### [place] [id number] [facility] Anion gap [Moles/Vol] 13.6 mmol/L Normal 6.0-15.0 [facility] Comment on above: Order Comment: RIN T O COME TRY,KAH,160 Performed By: #### C BC, CMP #### [place] [id number] [facility] AST [Catalytic activity/Vol] 35 U/L Normal 13-39 [facility] Comment on above: Order Comment: RIN T O COME TRY,KAH,160 Performed By: #### C BC, CMP #### [place] [id number] [place] Bilirubin [Mass/Vol] 0.3 mg/dL Normal 0.3-1.0 [facility] Comment on above: Order Comment: RIN T O COME TRY,KAH,160 Performed By: #### C BC, CMP #### [facility] [address] [place], [place] [id number] [place] Calcium [Mass/Vol] 9.3 mg/dL Normal 8.6-10.3 [facility] Comment on above: Order Comment: RIN T O COME TRY,KAH,1607 Performed By: #### C BC, CMP #### [facility] [address] [place] [id number] [place] Chloride [Moles/Vol] 109 mmol/L High 98-107 [facility] Comment on above: Order Comment: RIN T O COME TRY,KAH,160 Performed By: #### C BC, CMP #### [facility] [address] CO2 [Moles/Vol] 22.4 mmol/L Normal 21.0-31.0 [facility] Comment on above: Order Comment: RIN T O COME TRY,KAH,1606 Performed By: #### C BC, CMP #### [facility] [address] [place] [id number] [place] Creatinine [Mass/Vol] 0.93 mg/dL Normal 0.60-1.20 [facility] Comment on above: Order Comment: RIN T O COME TRY,KAH,1606 Performed By: #### C BC, CMP #### [facility] [address] Creatinine Clr Calc Pharmacy 87.94 Normal [facility] Comment on above: Order Comment: RIN T O COME TRY,KAH,1606 Result Comment: PERF ORMED BY: [place] [address] PATHOLOGIST SENIOR ANDROID DEVELOPER ADIEL AGUSTIN M.D. Performed By: #### C BC, CMP #### [place] [address] [place] GFR/1.73 sq M.predicted MDRD (S/P/Bld) [Vol rate/Area] mL/min/{1.73_m2} Normal [facility] Comment on above: Order Comment: RIN T O COME TRY,KAH,1606 Performed By: #### C BC, CMP #### [facility] [address] [place] [id number] [place] Globulin (S) [Mass/Vol] 3.2 g/dL Normal [facility] Comment on above: Order Comment: RIN T O COME TRY,KAH,1606 Performed By: #### C BC, CMP #### [facility] [address] [place] [id number] [place] Glucose [Mass/Vol] 105 mg/dL High 70-100 The [facility] Comment on above: Order Comment: REY T O COME TRY,KAH,160 Result Comment: [place] Glucose Reference Range is dependent on time and content of last meal. Glucose of more than 200 mg/dL in a nonstressed, ambulatory subject supports the diagnosis of Diabetes Mellitus. ADA recommended reference range Performed By: #### C BC, CMP #### [address] Potassium [Moles/Vol] 4.0 mmol/L Normal 3.5-5.1 [facility] Comment on above: Order Comment: REY T O COME TRY,KAH,160 Performed By: #### C BC, CMP #### [place] [id number] [facility] Protein [Mass/Vol] 7.8 g/dL Normal 6.4-8.9 [facility] Comment on above: Order Comment: REY T O COME TRY,KAH,160 Performed By: #### C BC, CMP #### [address] Sodium [Moles/Vol] 141 mmol/L Normal 136-145 [facility] Comment on above: Order Comment: REY T O COME TRY,KAH,160 Performed By: #### C BC, CMP #### [place] [id number] [facility] Urea nitrogen [Mass/Vol] 15 mg/dL Normal 7-25 [facility] Comment on above: Order Comment: REY T O JAK PORRAS,KAH,160 Performed By: #### C BC, CMP #### [address] IGP,APTIMA HPV,AGE GDLNon AGE GDLN ACOG TESTING Note . [facility] Comment on above: TESTS RESULT FLAG U NITS REF RANGE LAB Clinician Provided Cytology Information Source.............Cervix;Endocervix No. of containers..01 ThinPrep Vial Age Gigi WILDE Tona... 3065 FLAG LEGEND: L-Low Normal,H-High Normal,LL-Alert Low,HH-Alert High <-Panic Low,>-Panic High,A-Abnormal,AA-Critical Abnormal Performed at: 01 =[address] [address] Farzana Hennessy MD, HPV APTIMA Negative Negative [facility] Comment on above: This nucleic acid am plification test detects fourteen high- risk HPV types (16,18,31,33,35,39,45,51,52,56,58,59,66,68) without differentiation. Performed at: =[address] [id number] Grain Buyer: Farzana Hennessy MD, Phone: [phone] Performed at: [facility] [address] [place] [id number] Grain Buyer: Scott Sandoval MD, Phone: [phone] IGP, APTIMA HPV, RFX 16/18,45 Note . [facility] Comment on above: TESTS RESULT FLAG UN ITS REF RANGE LAB DIAGNOSIS: 02 NEGATIVE FOR INTRAEPITHELIAL LESION OR MALIGNANCY. Specimen adequacy: 02 Satisfactory for evaluation. Endocervical and/or squamous metaplastic cells (endocervical component) are present. Performed by: 02 Adelaida Bustamante, Director Talent Management (ASCP) . 02 Note: Note 03 The [...] High,A-Abnormal,AA-Critical Abnormal Performed at: 02 [facility] [address] [place] [address] Scott Sandoval MD, 03 WB [facility] [address] [address] Farzana Hennessy MD, BROOM-ALONE [facility] Urinalysis macro (dipstick) panel (U)on 01-28-2024 Bilirubin, UA Negative Negative - 4(70) +++ mg/dL [facility] Blood, UA Negative Negative - 50 Kranthi/mcL [facility] Clarity, UA Clear NOMS [facility] Color, UA Dark T[facility] Glucose, UA Negative Negative - 2000(110) ++++ mg/dL [facility] Interpretation and review of laboratory results Abnormal [facility] Ketones, UA Negative Negative - 160(16) ++++ mg/dL [facility] Leukocytes, UA Trace Negative - 500+++ Radha/mcL [facility] Nitrite, UA Negative Negative - Positive [facility] pH, UA 5.5 5 - 9 [facility] Protein, UA Negative Negative - 2000(20) ++++ mg/dL [facility] Spec Grav, UA 1.025 1 - 1.03 [facility] Urobilinogen, UA 0.2 0.2 - 12 mg/dL [facility] MHPT CULT,URINEon 01-23-2024 Interpretation and review of laboratory results [facility] Spec[facility] Description .CLEAN CATCH URINE [facility] Culture ESCHERICHIA COLI >100,000 CFU/ML Abnormal [facility] STREPTOCOCCI, BETA HEMOLYTIC GROUP B 10 to 50,000 CFU/ML Abnormal [facility] Report Status FINAL 01/23/2024 [facility] SUSCEPTIBILITY [facility] MHPT CULT,URINE Organism ESCHERICHIA COLI [facility] Method CROW [facility] Ampicillin 16 INTERMEDIATE Intermediate [facility] Cefazolin <=4 SUSCEPTIBLE Susceptible [facility] Cefazolin sensitivit y results can be used to predict the effectiveness of oral Susceptible [facility] cephalosporins (eg. Cephalexin) in uncomplicated Urinary Tract Infections due Susceptible [facility] to E. coli, K. pneumoniae, and P. mirabilis Susceptible [facility] Ceftriaxone <=0.25 SUSCEPTIBLE Susceptible [facility] Negative Susceptible [facility] Gentamicin <=1 SUSCEPTIBLE Susceptible [facility] Levofloxacin <=0.12 SUSCEPTIBLE Susceptible [facility] Nitrofurantoin <=16 SUSCEPTIBLE Susceptible [facility] Piperacillin/Tazobac ta m <=4 SUSCEPTIBLE Susceptible [facility] Tobramycin <=1 SUSCEPTIBLE Susceptible [facility] Trimethoprim/Sulfa <=20 SUSCEPTIBLE Susceptible [facility] Original Ordering Provider: RICHA DAVENPORT [facility] ALL BASIC METABOLIC PANELon 01-05-2024 Anion gap [Moles/Vol] 11.1 mmol/L [facility] Calcium [Mass/Vol] 9.2 mg/dL 8.5 - 10. 1 mg/dL [facility] Chloride [Moles/Vol] 105 mmol/L 98 - 10 7 mmol/L [facility] CO2 [Moles/Vol] 28.0 mmol/L 21.0 - 32.0 mmol/L [facility] Creatinine [Mass/Vol] 1.08 mg/dL High 0.55 - 1.02 mg/dL [facility] GFR/1.73 sq M.predicted CKD-EPI (S/P/Bld) [Vol rate/Area] >60 60 - PINF [facility] Glucose [Mass/Vol] 92 mg/dL 74 - 106 mg/dL [facility] Interpretation and review of laboratory results Abnormal [facility] Potassium [Moles/Vol] 4.1 mmol/L 3.5 - 5.1 mmol/L [facility] Sodium [Moles/Vol] 140 mmol/L 136 - 145 mmol/L [facility] TBH EGFR-NON AF GEORGIAN 51 Low 60 - PINF [facility] Urea nitrogen [Mass/Vol] 17.0 mg/dL 7.0 - 18.0 mg/dL [facility] Urea nitrogen/Creatinine [Mass ratio] 15.7 mg/mg [facility] Amphetamine Screen Ql (U)Ord ered By: Jace Graham on 03-23-2023 Amphetamines Ql (U) Negative Negative [facility] Barbiturates [Presence] in U rine by Screen methodOrdered By: Jace Graham on 03-23-2023 Barbiturates Screen Ql (U) Negative Negative [facility] Benzodiazepines Screen Ql (U )Ordered By: Jace Graham on 03-23-2023 Benzodiazepines Ql (U) Negative Negative [facility] Benzoylecgonine [Presence] i n Urine by Screen methodOrdered By: Jace Graham on 03-23-2023 Benzoylecgonine Screen Ql (U) Negative Negative [facility] Cannabinoids [Presence] in U rine by Screen methodOrdered By: Jace Graham on 03-23-2023 Cannabinoids Screen Ql (U) Negative Negative [facility] Comment on above: These are unconfirme d results and should not be used for legal purposes. Drug Cut-Off Concentration: AMPH 1000 ng/mL ELKIN 200 ng/mL ATIYA 200 ng/mL COCM 300 ng/mL OP 300 ng/mL PCP 25 ng/mL THC 20 ng/mL Opiates [Presence] in Urine by Screen methodOrdered By: Jace Graham on 03-23-2023 Opiates Screen Ql (U) Negative Negative [facility] Phencyclidine Screen Ql (U)O rdered By: Jace Graham on 03-23-2023 Phencyclidine Ql (U) Negative Negative [facility] Cholesterol [Mass/volume] in Serum or PlasmaOrdered By: Eduardo Monk on 11-18-2022 Cholesterol [Mass/Vol] 159 mg/dL 140-200 [facility] Comment on above: Chol less than 200 m g/dl low riskChol 201-239 mg/dl borderline riskChol 240 mg/dl and greater high risk Cholesterol in LDL Calc [Mas s/Vol]Ordered By: Eduardo Monk on 11-18-2022 Cholesterol in LDL [Mass/Vol] 84 mg/dL 0-100 [facility] Comment on above: LDL ATP III CLASSIFI CATIONLDL less than 100 mg/dL OptimalLDL 100-129 mg/dL Near or above optimalLDL 130-159 mg/dL Borderline highLDL 160-189 mg/dL HighLDL greater than 189 mg/dL Very high Cholesterol in VLDL Calc [Ma ss/Vol]Ordered By: Eduardo Monk on 11-18-2022 Cholesterol in VLDL [Mass/Vol] 28 mg/dL [facility] Serum or plasma high density lipoprotein (HDL) cholesterol measurementOrdered By: Eduardo Monk on 11-18-2022 Cholesterol in HDL [Mass/Vol] 46 mg/dL 23-92 [facility] Comment on above: HDL CHOL ATP-III CLA SSIFICATION Cardiovascular RiskHDL > or equal to 60 mg/dL LOWHDL < 40 mg/dL HIGH Serum or plasma total choles terol/high density lipoprotein (HDL) cholesterol mass ratOrdered By: Eduardo Monk on 11-18-2022 Cholesterol.total/Chol esterol in HDL [Mass ratio] 3.5 {ratio} <5.0 [facility] Thyrotropin [Units/volume] i n Serum or PlasmaOrdered By: Eduardo Monk on 11-18-2022 TSH Qn 2.13 m[IU]/L 0.45-5.33 [facility] Triglyceride [Mass/volume] i n Serum or PlasmaOrdered By: Eduardo Monk on 11-18-2022 Triglyceride [Mass/Vol] 144 mg/dL 0-149 [facility] Comment on above: TRIG ATP III CLASSIF ICATIONTRIG less than 150 mg/dL NormalTRIG 150-199 mg/dL Borderline highTRIG 200-500 mg/dL High TRIG greater than 500 mg/dL Very highStandard traceable to the Center for Disease Conrtrol and Prevention (CDC) test method. Vitamin D+Metabolites [Mass/ volume] in Serum or PlasmaOrdered By: Eduardo Monk on 11-18-2022 Vitamin D+Metabolites [Mass/Vol] 50.4 ng/mL 30-100 [facility] Comment on above: VITAMIN D STATUS 25( [place])VITAMIN D RANGE (ng/mL) Deficient <20 Insufficient 20 to <30Sufficient 30 to 100Reference: Bin MF,Lakshmi NC, Cristian SMART, et al. Evaluation,treatment, and prevention of vitamin D deficiency; an Endocrine Society clinical practice guideline. JCEM. 2010; 96(7):1911-30. CBC AUTO DIFFon 07-25-2022 BASO # 0.1 103/ul Normal 0.0-0.1 [facility] [place] Comment on above: Performed By: #### A 1C #### [facility] [address] [place] [address] Dr. Bebeto Alvraado Basophils/100 WBC (Bld) 0.6 % Normal 0.2-2.0 [facility] [place] Comment on above: Performed By: #### A 1C #### [facility] [address] [address] [address] Bebeto Alvarado EO # 0.2 103/ul Normal 0.0-0.7 [facility] [place] Comment on above: Performed By: #### A 1C #### [facility] [address] [place] [address] Dr. Bebeto Alvarado Eosinophils/100 WBC (Bld) 2.3 % Normal 0.9-7.0 [facility] [place] Comment on above: Performed By: #### A 1C #### [facility] [address] [place] [address] Dr. Bebeto Alvarado Erythrocyte distribution width (RBC) [Ratio] 13.8 % Normal 11.0-15.0 [facility] Comment on above: Performed By: #### A 1C #### [facility] [address] [place] [address] Dr. Bebeto Alvarado Hematocrit (Bld) [Volume fraction] 41.2 % Normal 36.0-48.0 [facility] Comment on above: Performed By: #### A 1C #### [facility] [address] [place] [address] Dr. Bebeto Alvarado Hemoglobin (Bld) [Mass/Vol] 13.2 g/dL Normal 12.0-16.0 [facility] Comment on above: Performed By: #### A 1C #### [facility] [address] [place] [address] Dr. Bebeto Alvarado IG # 0.03 10e3/ul Normal 0.00-0.03 [facility] Comment on above: Performed By: #### A 1C #### [facility] [address] [place] [address] Dr. Bebeto Alvarado IG % 0.4 % Normal 0.0-0.5 [facility] Comment on above: Performed By: #### A 1C #### [facility] [address] [place] [address] Dr. Bebeto Alvarado LYMPH # 2.1 103/ul Normal 1.2-3.8 [facility] Comment on above: Performed By: #### A 1C #### [facility] [address] [place] [address] Dr. Bebeto Alvarado Lymphocytes/100 WBC (Bld) 25.9 % Normal 20.5-60.0 [facility] [place] Comment on above: Performed By: #### A 1C #### [facility] [address] [place] [address] Dr. Bebeto Alvarado MANUAL DIFF REQ NO Normal [facility] Comment on above: Performed By: #### A 1C #### [facility] [address] [place] [address] Dr. Bebeto Alvarado MCH (RBC) [Entitic mass] 28.0 pg Normal 26.7-34.0 [facility] [place] Comment on above: Performed By: #### A 1C #### [facility] [address] [place] [address] Dr. Bebeto Alvarado MCHC (RBC) [Mass/Vol] 32.0 g/dL Normal 29.9-35.2 [facility] [place] Comment on above: Performed By: #### A 1C #### [facility] [address] [place] [address] Dr. Bebeto Alvarado MCV (RBC) [Entitic vol] 87.5 fL Normal 81.0-99.0 [facility] [place] Comment on above: Performed By: #### A 1C #### [facility] [address] [place] [address] Dr. Bebeto Alvarado MONO # 0.5 103/ul Normal 0.3-0.8 [facility] [place] Comment on above: Performed By: #### A 1C #### [facility] [address] [place] [address] Dr. Bebeto Alvarado Monocytes/100 WBC (Bld) 6.6 % Normal 1.7-12.0 [facility] [place] Comment on above: Performed By: #### A 1C #### [facility] [address] [place] [address] Dr. Bebeto Alvarado NEUT # 5.1 103/ul Normal 1.4-6.5 [facility] Comment on above: Performed By: #### A 1C #### [facility] [address] [place] [address] Dr. Bebeto Alvarado Neutrophils/100 WBC (Bld) 64.2 % Normal 43.0-75.0 [facility] [place] Comment on above: Performed By: #### A 1C #### [facility] [address] [place] [address] Dr. Bebeto Alvarado Platelet mean volume (Bld) [Entitic vol] 11.2 fL Normal 9.5-13.5 [facility] [place] Comment on above: Performed By: #### A 1C #### [facility] [address] [place] [address] Dr. Bebeto Alvarado PLT 252 103/ul Normal 150-450 [facility] Comment on above: Performed By: #### A 1C #### [facility] [address] [place] [address] Dr. Bebeto Alvarado RBC 4.71 106/ul Normal 4.20-5.40 [facility] [place] Comment on above: Performed By: #### A 1C #### [facility] [address] [place] [address] Dr. Bebeto Alvarado WBC 8.0 103/ul Normal 4.0-11.0 [facility] [place] Comment on above: Performed By: #### A 1C #### [facility] [address] [place] [address] Dr. Bebeto Alvarado GLYCOHEMOGLOBIN A1Con 2022 ADA RECOMMENDATION SEE BELOW Normal [facility] Comment on above: Result Comment: ADA RECOMMENDED LIMIT 4.0 - 6.0 ADA THERAPEUTIC TARGET < 7.0 ACTION SUGGESTED > 7.0 Performed By: #### A 1C #### [facility] [address] [place] [address] Dr. Bebeto Alvarado Glucose [Mass/Vol] 114 mg/dL Normal [facility] Comment on above: Performed By: #### A 1C #### [facility] [address] [place] [address] Dr. Bebeto Alvarado HbA1c (Bld) [Mass fraction] 5.6 % Normal 4.5-6.2 [facility] [place] Comment on above: Performed By: #### A 1C #### [facility] [address] [place] [address] Dr. Bebeto Alvarado IRONon 07-25-2022 Iron [Mass/Vol] 60.0 ug/dL Normal 50.0-170.[address] [facility] Comment on above: Performed By: #### V ITB12, IRON #### [facility] [address] [address] [address] Bebeto Alvarado LIPID PROFILEon 07-25-2022 CHOL-HDL RATIO NORM SEE BELOW Normal [facility] Comment on above: Result Comment: 3.3 - 4.4 LOW RISK 4.4 - 7.1 AVERAGE RISK 7.1 - 11.0 MODERATE RISK >11.0 HIGH RISK Performed By: #### C MP, LIPID #### [facility] [address] [address] [address] Bebeto Alvarado Cholesterol [Mass/Vol] 144 mg/dL Normal <=200 [facility] Comment on above: Performed By: #### C MP, LIPID #### [facility] [address] [address] [address] Bebeto Alvarado Cholesterol in HDL [Mass/Vol] 39 mg/dL Critically low 40-60 [facility] [place] Comment on above: Performed By: #### C MP, LIPID #### [facility] [address] [address] [address] Bebeto Alvarado Cholesterol in LDL [Mass/Vol] 74.6 mg/dL Normal [facility] [place] Comment on above: Performed By: #### C MP, LIPID #### [facility] [address] [address] [address] Bebeto Alvarado Cholesterol.total/Chol esterol in HDL [Mass ratio] 3.7 {ratio} Normal [facility] [place] Comment on above: Performed By: #### C MP, LIPID #### [facility] [address] [address] [address] Bebeto Alvarado HDL NORMAL > or = 60 mg/dl - LO W CARDIOVASCULAR RISK <40 mg/dl - HIGH CARDIOVASCULAR RISK Normal [facility] [place] Comment on above: Performed By: #### C MP, LIPID #### [facility] [address] [id number] [address] Bebeto Alvarado LDL CALC NORMAL SEE BELOW Normal [facility] Comment on above: Result Comment: <100 mg/dl OPTIMAL 100 - 129 mg/dl NEAR OR ABOVE OPTIMAL 130 - 159 mg/dl BORDERLINE HIGH 160 - 189 mg/dl HIGH >190 mg/dl VERY HIGH Performed By: #### C MP, LIPID #### [facility] [address] [place] [address] Dr. Bebeto Alvarado Triglyceride [Mass/Vol] 152 mg/dL Critically high <=150 [facility] [place] Comment on above: Performed By: #### C MP, LIPID #### [facility] [address] [address] [address] Bebeto Alvarado VLDL CALC 30.4 mg/dL Normal [facility] [place] Comment on above: Performed By: #### C MP, LIPID #### [facility] [address] [address] [address] Bebeto Alvarado PROF 14(COMP METB)on 023 Albumin [Mass/Vol] 3.7 g/dL Normal 3.4-5.0 [facility] Comment on above: Performed By: #### C MP, LIPID #### [facility] [address] [place] [address] Dr. Bebeto Alvarado Albumin/Globulin [Mass ratio] 0.9 {ratio} Normal [facility] [place] Comment on above: Performed By: #### C MP, LIPID #### [facility] [address] [place] [address] Dr. Bebeto Alvarado ALP [Catalytic activity/Vol] 90 U/L Normal 46-116 [facility] [place] Comment on above: Performed By: #### C MP, LIPID #### [facility] [address] [place] [address] Dr. Bebeto Alvarado ALT [Catalytic activity/Vol] 38 U/L Normal 14-59 [facility] [place] Comment on above: Performed By: #### C MP, LIPID #### [facility] [address] [place] [address] Dr. Bebeto Alvarado Anion gap [Moles/Vol] 12.1 mmol/L Normal [facility] Comment on above: Performed By: #### C MP, LIPID #### [facility] [address] [place] [address] Dr. Bebeto Alvarado AST [Catalytic activity/Vol] 26 U/L Normal 15-37 [facility] [place] Comment on above: Performed By: #### C MP, LIPID #### [facility] [address] [address] [address] Bebeto Alvarado Bilirubin [Mass/Vol] 0.3 mg/dL Normal 0.2-1.0 [facility] [place] Comment on above: Performed By: #### C MP, LIPID #### [facility] [address] [address] [address] Bebeto Alvarado Calcium [Mass/Vol] 9.3 mg/dL Normal 8.5-10.1 [facility] Comment on above: Performed By: #### C MP, LIPID #### [facility] [address] [address] [address] Bebeto Alvarado Chloride [Moles/Vol] 107 mmol/L Normal 98-107 [facility] [place] Comment on above: Performed By: #### C MP, LIPID #### [facility] [address] [place] [address] Dr. Bebeto Alvarado CO2 [Moles/Vol] 27.9 mmol/L Normal 21.0-32.0 [facility] Comment on above: Performed By: #### C MP, LIPID #### [facility] [address] [place] [address] Dr. Bebeto Alvarado Creatinine [Mass/Vol] 0.95 mg/dL Normal 0.55-1.02 [facility] [place] Comment on above: Performed By: #### C MP, LIPID #### [facility] [address] [place] [address] Dr. Bebeto Alvarado EGFR-AF GEORGIAN >60 Normal >=60 [facility] Comment on above: Performed By: #### C MP, LIPID #### [facility] [address] [place] [address] Dr. Bebeto Alvarado EGFR-NON AF GEORGIAN 60 mL/min/1.73m2 Normal >=60 [facility] Comment on above: Performed By: #### C MP, LIPID #### [facility] [address] [place] [address] Dr. Bebeto Alvarado Globulin (S) [Mass/Vol] 3.9 g/dL Normal [facility] [place] Comment on above: Performed By: #### C MP, LIPID #### [facility] [address] [place] [address] Dr. Bebeto Alvarado Glucose [Mass/Vol] 108 mg/dL Critically high 74-106 [facility] Comment on above: Performed By: #### C MP, LIPID #### [facility] [address] [place] [address] Dr. Bebeto Alvarado Potassium [Moles/Vol] 4.0 mmol/L Normal 3.5-5.1 [facility] [place] Comment on above: Performed By: #### C MP, LIPID #### [facility] [address] [place] [address] Dr. Bebeto Alvarado Protein [Mass/Vol] 7.6 g/dL Normal 6.4-8.2 [facility] Comment on above: Performed By: #### C MP, LIPID #### [facility] [address] [place] [address] Dr. Bebeto Alvarado Sodium [Moles/Vol] 143 mmol/L Normal 136-145 [facility] Comment on above: Performed By: #### C MP, LIPID #### [facility] [address] [place] [address] Dr. Bebeto Alvarado Urea nitrogen [Mass/Vol] 15.0 mg/dL Normal 7.0-18.0 [facility] [place] Comment on above: Performed By: #### C MP, LIPID #### [facility] [address] [place] [address] Dr. Bebeto Alvarado Urea nitrogen/Creatinine [Mass ratio] 15.8 mg/mg Normal [facility] [place] Comment on above: Performed By: #### C MP, LIPID #### [facility] [address] [place] [address] Dr. Bebeto Alvarado UA RANDOM W/MICROSCOPICon BACTERIA NONE SEEN Normal NONE SEEN [facility] Comment on above: Performed By: #### A 1C #### [facility] [address] [place] [address] Dr. Bebeto Alvarado Bilirubin Ql (U) Negative Normal NEGATIVE [facility] Comment on above: Performed By: #### A 1C #### [facility] [address] [place] [address] Dr. Bebeto Alvarado CAST NONE SEEN Normal NONE SEEN [facility] [place] Comment on above: Performed By: #### A 1C #### [facility] [address] [place] [address] Dr. Bebeto Alvarado Clarity (U) CLEAR Normal CLEAR [facility] Comment on above: Performed By: #### A 1C #### [facility] [address] [place] [address] Dr. Bebeto Alvarado Color (U) YELLOW Normal YELLOW [facility] – [place] Comment on above: Performed By: #### A 1C #### [facility] [address] [place] [address] Dr. Bebeto Alvarado Crystals LM Nom (Urine sed) NONE SEEN Normal NONE SEEN [facility] [place] Comment on above: Performed By: #### A 1C #### [facility] [address] [place] [address] Dr. Bebeto Alvarado Epithelial cells LM Ql (Urine sed) NONE SEEN Normal NONE SEEN /RARE [facility] Comment on above: Performed By: #### A 1C #### [facility] [address] [place] [address] Dr. Bebeto Alvarado Glucose Ql (U) Negative Normal NEGATIVE [facility] Comment on above: Performed By: #### A 1C #### [facility] [address] [place] [address] Dr. Bebeto Alvarado Hemoglobin Ql (U) Negative Normal NEGATIVE [facility] Comment on above: Performed By: #### A 1C #### [facility] [address] [place] [address] Dr. Bebeto Alvarado Ketones Ql (U) Negative Normal NEGATIVE [facility] Comment on above: Performed By: #### A 1C #### [facility] [address] [place] [address] Dr. Bebeto Alvarado LEUKOCYTES Negative Normal NEGATIVE [facility] Comment on above: Performed By: #### A 1C #### [facility] [address] [place] [address] Dr. Bebeto Alvarado MUCOUS NONE SEEN Normal NONE SEEN [facility] [place] Comment on above: Performed By: #### A 1C #### [facility] [address] [place] [address] Dr. Bebeto Alvarado Nitrite Ql (U) Negative Normal NEGATIVE [facility] Comment on above: Performed By: #### A 1C #### [facility] [address] [place] [address] Dr. Bebeto Alvarado pH (U) 5.5 [pH] Normal 5-9 [facility] [place] Comment on above: Performed By: #### A 1C #### [facility] [address] [place] [address] Dr. Bebeto Alvarado RBC NONE SEEN Abnormal 0-2 [facility] [place] Comment on above: Performed By: #### A 1C #### [facility] [address] [place] [address] Dr. Bebeto Alvarado SPEC GRAVITY 1.030 Abnormal 1.005-<=1.02 5 [facility] [place] Comment on above: Performed By: #### A 1C #### [facility] [address] [place] [address] Dr. Bebeto Alvarado UA PROTEIN Negative Normal NEGATIVE/ TRACE [facility] Comment on above: Performed By: #### A 1C #### [facility] [address] [place] [address] Dr. Bebeto Alvarado Urobilinogen Qn (U) 0.2 {Katerin'U}/dL Normal 0.2 - 1. 0 [facility] [place] Comment on above: Performed By: #### A 1C #### [facility] [address] [place] [address] Dr. Bebeto Alvarado WBC NONE SEEN Normal NONE SEEN [facility] [place] Comment on above: Performed By: #### A 1C #### [facility] [address] [place] [address] Dr. Bebeto Alvarado VITAMIN B12on 07-25-2022 Cobalamin (Vitamin B12) [Mass/Vol] 1684.0 pg/mL Critically high 193.0-986.0 [facility] [place] Comment on above: Performed By: #### V ITB12, IRON #### [facility] [address] [place] [address] Dr. Bebeto Alvarado PROF CHEM 8 (BAS METB)on Anion gap [Moles/Vol] 12.2 mmol/L Normal Th e [facility] Comment on above: Performed By: #### B MP #### [facility] [address] [address] [address] Bebeto Alvarado Calcium [Mass/Vol] 8.9 mg/dL Normal 8.5-10.1 [facility] Comment on above: Performed By: #### B MP #### [facility] [address] [address] [address] Bebeto Alvarado Chloride [Moles/Vol] 105 mmol/L Normal 98-107 [facility] [place] Comment on above: Performed By: #### B MP #### [facility] [address] [place] [address] Dr. Bebeto Alvarado CO2 [Moles/Vol] 29.6 mmol/L Normal 21.0-32.0 [facility] Comment on above: Performed By: #### B MP #### [facility] [address] [place] [address] Dr. Bebeto Alvarado Creatinine [Mass/Vol] 0.95 mg/dL Normal 0.55-1.02 [facility] [place] Comment on above: Performed By: #### B MP #### [facility] [address] [place] [address] Dr. Bebeto Alvarado EGFR-AF GEORGIAN >60 Normal >=60 [facility] Comment on above: Performed By: #### B MP #### [facility] [address] [address] [address] Bebeto Alvarado EGFR-NON AF GEORGIAN 60 mL/min/1.73m2 Normal >=60 [facility] Comment on above: Performed By: #### B MP #### [facility] [address] [place] [address] Dr. Bebeto Alvarado Glucose [Mass/Vol] 101 mg/dL Normal 74-106 [facility] Comment on above: Performed By: #### B MP #### [facility] [address] [place] [address] Dr. Bebeto Alvarado Potassium [Moles/Vol] 3.8 mmol/L Normal 3.5-5.1 [facility] [place] Comment on above: Performed By: #### B MP #### [facility] [address] [place] [address] Dr. Bebeto Alvarado Sodium [Moles/Vol] 143 mmol/L Normal 136-145 [facility] Comment on above: Performed By: #### B MP #### [facility] [address] [place] [address] Dr. Bebeto Alvarado Urea nitrogen [Mass/Vol] 16.0 mg/dL Normal 7.0-18.0 [facility] [place] Comment on above: Performed By: #### B MP #### [facility] [address] [place] [address] Dr. Bebeto Alvarado Urea nitrogen/Creatinine [Mass ratio] 16.8 mg/mg Normal [facility] [place] Comment on above: Performed By: #### B MP #### [facility] [address] [place] [address] Dr. Bebeto Alvarado CBC AUTO DIFFon 11-21-2021 BASO # 0.1 103/ul Normal 0.0-0.1 [facility] [place] Comment on above: Performed By: #### A 1C #### [facility] [address] [place] [address] Dr. Bebeto Alvarado Basophils/100 WBC (Bld) 1.0 % Normal 0.2-2.0 [facility] [place] Comment on above: Performed By: #### A 1C #### [facility] [address] [place] [address] Dr. Bebeto Alvarado EO # 0.2 103/ul Normal 0.0-0.7 [facility] [place] Comment on above: Performed By: #### A 1C #### [facility] [address] [place] [address] Dr. Bebeto Alvarado Eosinophils/100 WBC (Bld) 3.3 % Normal 0.9-7.0 [facility] [place] Comment on above: Performed By: #### A 1C #### [facility] [address] [place] [address] Dr. Bebeto Alvarado Erythrocyte distribution width (RBC) [Ratio] 13.8 % Normal 11.0-15.0 [facility] [place] Comment on above: Performed By: #### A 1C #### [facility] [address] [place] [address] Dr. Bebeto Alvarado Hematocrit (Bld) [Volume fraction] 38.8 % Normal 36.0-48.0 [facility] [place] Comment on above: Performed By: #### A 1C #### [facility] [address] [place] [address] Dr. Bebeto Alvarado Hemoglobin (Bld) [Mass/Vol] 12.5 g/dL Normal 12.0-16.0 [facility] [place] Comment on above: Performed By: #### A 1C #### [facility] [address] [place] [address] Dr. Bebeto Alvarado IG # 0.02 10e3/ul Normal 0.00-0.03 [facility] [place] Comment on above: Performed By: #### A 1C #### [facility] [address] [place] [address] Dr. Bebeto Alvarado IG % 0.3 % Normal 0.0-0.5 [facility] [place] Comment on above: Performed By: #### A 1C #### [facility] [address] [place] [address] Dr. Bebeto Alvarado LYMPH # 1.9 103/ul Normal 1.2-3.8 [facility] [place] Comment on above: Performed By: #### A 1C #### [facility] [address] [place] [address] Dr. Bebeto Alvarado Lymphocytes/100 WBC (Bld) 29.6 % Normal 20.5-60.0 [facility] [place] Comment on above: Performed By: #### A 1C #### [facility] [address] [place] [address] Dr. Bebeto Alvarado MANUAL DIFF REQ NO Normal [facility] Comment on above: Performed By: #### A 1C #### [facility] [address] [place] [address] Dr. Bebeto Alvarado MCH (RBC) [Entitic mass] 28.0 pg Normal 26.7-34.0 [facility] [place] Comment on above: Performed By: #### A 1C #### [facility] [address] [address] [address] Bebeto Alvarado MCHC (RBC) [Mass/Vol] 32.2 g/dL Normal 29.9-35.2 [facility] [place] Comment on above: Performed By: #### A 1C #### [facility] [address] [address] [address] Bebeto Alvarado MCV (RBC) [Entitic vol] 86.8 fL Normal 81.0-99.0 [facility] [place] Comment on above: Performed By: #### A 1C #### [facility] [address] [place] [address] Dr. Bebeto Alvarado MONO # 0.4 103/ul Normal 0.3-0.8 [facility] [place] Comment on above: Performed By: #### A 1C #### [facility] [address] [place] [address] Dr. Bebeto Alvarado Monocytes/100 WBC (Bld) 5.7 % Normal 1.7-12.0 [facility] [place] Comment on above: Performed By: #### A 1C #### [facility] [address] [place] [address] Dr. Bebeto Alvarado NEUT # 3.8 103/ul Normal 1.4-6.5 [facility] [place] Comment on above: Performed By: #### A 1C #### [facility] [address] [place] [address] Dr. Bebeto Alvarado Neutrophils/100 WBC (Bld) 60.1 % Normal 43.0-75.0 [facility] Comment on above: Performed By: #### A 1C #### [facility] [address] [place] [address] Dr. Beebto Alvarado Platelet mean volume (Bld) [Entitic vol] 11.0 fL Normal 9.5-13.5 [facility] [place] Comment on above: Performed By: #### A 1C #### [facility] [address] [place] [address] Dr. Bebeto Alvarado PLT 264 103/ul Normal 150-450 [facility] Comment on above: Performed By: #### A 1C #### [facility] [address] [address] [address] Bebeto Alvarado RBC 4.47 106/ul Normal 4.20-5.40 [facility] [place] Comment on above: Performed By: #### A 1C #### [facility] [address] [address] [address] Bebeto Alvarado WBC 6.3 103/ul Normal 4.0-11.0 [facility] [place] Comment on above: Performed By: #### A 1C #### [facility] [address] [address] [address] Bebeto Alvarado GLYCOHEMOGLOBIN A1Con 2021 ADA RECOMMENDATION SEE BELOW Normal [facility] Comment on above: Result Comment: ADA RECOMMENDED LIMIT 4.0 - 6.0 ADA THERAPEUTIC TARGET < 7.0 ACTION SUGGESTED > 7.0 Performed By: #### A 1C #### [facility] [address] [address] [address] Bebeto Alvarado Glucose [Mass/Vol] 105 mg/dL Normal [facility] Comment on above: Performed By: #### A 1C #### [facility] [address] [address] [address] Bebeto Alvarado HbA1c (Bld) [Mass fraction] 5.3 % Normal 4.5-6.2 [facility] [place] Comment on above: Performed By: #### A 1C #### [facility] [address] [place] [address] Dr. Bebeto Alvarado IRONon 11-21-2021 Iron [Mass/Vol] 59.0 ug/dL Normal 50.0-170.[address] [facility] Comment on above: Performed By: #### A 1C #### [facility] [address] [place] [address] Dr. Bebeto Alvarado LIPID PROFILEon 11-21-2021 CHOL-HDL RATIO NORM SEE BELOW Normal [facility] Comment on above: Result Comment: 3.3 - 4.4 LOW RISK 4.4 - 7.1 AVERAGE RISK 7.1 - 11.0 MODERATE RISK >11.0 HIGH RISK Performed By: #### C MP, LIPID #### [facility] [address] [address] [address] Bebeto Alvarado Cholesterol [Mass/Vol] 139 mg/dL Normal <=200 Th [facility] Comment on above: Performed By: #### C MP, LIPID #### [facility] [address] [address] [address] Bebeto Alvarado Cholesterol in HDL [Mass/Vol] 35 mg/dL Critically low 40-60 [facility] [place] Comment on above: Performed By: #### C MP, LIPID #### [facility] [address] [address] [address] Bebeto Alvarado Cholesterol in LDL [Mass/Vol] 69.6 mg/dL Normal [facility] [place] Comment on above: Performed By: #### C MP, LIPID #### [facility] [address] [address] [address] Bebeto Alvarado Cholesterol.total/Chol esterol in HDL [Mass ratio] 4.0 {ratio} Normal [facility] [place] Comment on above: Performed By: #### C MP, LIPID #### [facility] [address] [address] [address] Bebeto Alvarado HDL NORMAL > or = 60 mg/dl - LO W CARDIOVASCULAR RISK <40 mg/dl - HIGH CARDIOVASCULAR RISK Normal [facility] [place] Comment on above: Performed By: #### C MP, LIPID #### [facility] [address] [address] [address] Bebeto Alvarado LDL CALC NORMAL SEE BELOW Normal [facility] Comment on above: Result Comment: <100 mg/dl OPTIMAL 100 - 129 mg/dl NEAR OR ABOVE OPTIMAL 130 - 159 mg/dl BORDERLINE HIGH 160 - 189 mg/dl HIGH >190 mg/dl VERY HIGH Performed By: #### C MP, LIPID #### [facility] [address] [address] [address] Bebeto Alvarado Triglyceride [Mass/Vol] 172 mg/dL Critically high <=150 [facility] [place] Comment on above: Performed By: #### C MP, LIPID #### [facility] [address] [address] [address] Bebeto Alvarado VLDL CALC 34.4 mg/dL Normal [facility] [place] Comment on above: Performed By: #### C MP, LIPID #### [facility] [address] [place] [address] Dr. Bebeto Alvarado PROF 14(COMP METB)on 022 Albumin [Mass/Vol] 3.8 g/dL Normal 3.4-5.0 [facility] Comment on above: Performed By: #### C MP, LIPID #### [facility] [address] [place] [address] Dr. Bebeto Alvarado Albumin/Globulin [Mass ratio] 1.1 {ratio} Normal [facility] [place] Comment on above: Performed By: #### C MP, LIPID #### [facility] [address] [place] [address] Dr. Bebeto Alvarado ALP [Catalytic activity/Vol] 96 U/L Normal 46-116 [facility] [place] Comment on above: Performed By: #### C MP, LIPID #### [facility] [address] [place] [address] Dr. Bebeto Alvarado ALT [Catalytic activity/Vol] 25 U/L Normal 14-59 [facility] [place] Comment on above: Performed By: #### C MP, LIPID #### [facility] [address] [place] [address] Dr. Bebeto Alvarado Anion gap [Moles/Vol] 11.8 mmol/L Normal [facility] Comment on above: Performed By: #### C MP, LIPID #### [facility] [address] [place] [address] Dr. Bebeto Alvarado AST [Catalytic activity/Vol] 20 U/L Normal 15-37 [facility] [place] Comment on above: Performed By: #### C MP, LIPID #### [facility] [address] [place] [address] Dr. Bebeto Alvarado Bilirubin [Mass/Vol] 0.4 mg/dL Normal 0.2-1.0 [facility] [place] Comment on above: Performed By: #### C MP, LIPID #### [facility] [address] [place] [address] Dr. Bebeto Alvarado Calcium [Mass/Vol] 8.8 mg/dL Normal 8.5-10.1 [facility] Comment on above: Performed By: #### C MP, LIPID #### [facility] [address] [place] [address] Dr. Bebeto Alvarado Chloride [Moles/Vol] 106 mmol/L Normal 98-107 [facility] [place] Comment on above: Performed By: #### C MP, LIPID #### [facility] [address] [place] [address] Dr. Bebeto Alvarado CO2 [Moles/Vol] 27.0 mmol/L Normal 21.0-32.0 [facility] Comment on above: Performed By: #### C MP, LIPID #### [facility] [address] [place] [address] Dr. Bebeto Alvarado Creatinine [Mass/Vol] 0.97 mg/dL Normal 0.55-1.02 [facility] [place] Comment on above: Performed By: #### C MP, LIPID #### [facility] [address] [place] [address] Dr. Bebeto Alvarado EGFR-AF GEORGIAN >60 Normal >=60 [facility] Comment on above: Performed By: #### C MP, LIPID #### [facility] [address] [place] [address] Dr. Bebeto Alvarado EGFR-NON AF GEORGIAN 59 mL/min/1.73m2 Critically low >=60 [facility] Comment on above: Performed By: #### C MP, LIPID #### [facility] [address] [place] [address] Dr. Bebeto Alvarado Globulin (S) [Mass/Vol] 3.4 g/dL Normal [facility] [place] Comment on above: Performed By: #### C MP, LIPID #### [facility] [address] [place] [address] Dr. Bebeto Alvarado Glucose [Mass/Vol] 103 mg/dL Normal 74-106 [facility] Comment on above: Performed By: #### C MP, LIPID #### [facility] [address] [place] [address] Dr. Bebeto Alvarado Potassium [Moles/Vol] 3.8 mmol/L Normal 3.5-5.1 [facility] [place] Comment on above: Performed By: #### C MP, LIPID #### [facility] [address] [place] [address] Dr. Bebeto Alvarado Protein [Mass/Vol] 7.2 g/dL Normal 6.4-8.2 [facility] Comment on above: Performed By: #### C MP, LIPID #### [facility] [address] [place] [address] Dr. Bebeto Alvarado Sodium [Moles/Vol] 141 mmol/L Normal 136-145 [facility] Comment on above: Performed By: #### C MP, LIPID #### [facility] [address] [place] [address] Dr. Bebeto Alvarado Urea nitrogen [Mass/Vol] 11.0 mg/dL Normal 7.0-18.0 [facility] [place] Comment on above: Performed By: #### C MP, LIPID #### [facility] [address] [place] [address] Dr. Bebeto Alvarado Urea nitrogen/Creatinine [Mass ratio] 11.3 mg/mg Normal [facility] [place] Comment on above: Performed By: #### C MP, LIPID #### [facility] [address] [place] [address] Dr. Bebeto Alvarado URIC ACID SERUMon 11-21-2021 Urate [Mass/Vol] 7.3 mg/dL Critically high 2.6-6.0 [facility] [place] Comment on above: Performed By: #### A 1C #### [facility] [address] [place] [address] Dr. Bebeto Alvarado VITAMIN B12on 11-21-2021 Cobalamin (Vitamin B12) [Mass/Vol] 2123.0 pg/mL Critically high 193.0-986.0 [facility] [place] Comment on above: Performed By: #### A 1C #### [facility] [address] [place] [address] Dr. Bebeto Alvarado Physician Referralon 022 Physician Referral [id number] Normal [facility] KNEE RIGHT 1 OR 2 VWSon 11-0 KNEE RIGHT 1 OR 2 VWS [facility] Department of Radiology [address] [place] [id number] ======== Patient Name: MICHELLE BE : 1960 Sex: F Age: Race: White Pt. Location: 84 Patient Status: O Ordered Date: 02/08/2019 10:40:00 AM Completed Date: 02/08/2019 10:38 AM Requesting Provider: AHSAN BINGHAM Attending Provider: AHSAN BINGHAM Report Copy To: Signs & Symptoms: S82.001A Unsp fracture of right patella, init for clos fx I10 History: [place] Comments: , , , Ordering Provider - [...] Electronically signed by:Debra Del Cid. Transcribed by: [email or web address], User Resident: Electronically Signed by: DEBRA DEL CID @ 02/08/2019 11:16 AM Normal [facility] Comment on above: Order Comment: , Rossie ws (X-RAY, KNEE): Radiologic Protocol , Weight Bearing?: N , With or Without Brace/Cast/Collar: With , Views (X-RAY, KNEE): Radiologic Protocol , Weight Bearing?: N , With or Without Brace/Cast/Collar: With , , , Ordering Provider - AHSAN BINGHAM PA-C , KNEE RIGHT 1 OR 2 [facility] KNEE RIGHT 1 OR 2 [facility] Department of Radiology [address] [place] [phone] ======== Patient Name: MICHELLE BE : 1960 Sex: F Age: Race: White Pt. Location: Patient Status: Ordered Date: 12/07/2018 10:20:00 AM Completed Date: 12/07/2018 10:20 AM Requesting Provider: AHSAN BINGHAM Attending Provider: Report Copy To: Signs & Symptoms: S82.001A Unsp fracture of right patella, init for clos fx I10 History: [place] Comments: , , , Ordering Provider - AHSAN BINGHAM PA-C , Exam: KNEE RIGHT 1 OR 2 [facility] ======== KNEE RIGHT 1 OR 2 [...] complications. Electronically signed by:Tomasz Stoll. Transcribed by: [email or web address], User Resident: Electronically Signed by: TOMASZ STOLL @ 12/07/2018 11:14 AM Normal [facility] Comment on above: Order Comment: , Vie ws (X-RAY, KNEE): Radiologic Protocol , Weight Bearing?: N , With or Without Brace/Cast/Collar: With , Views (X-RAY, KNEE): Radiologic Protocol , Weight Bearing?: N , With or Without Brace/Cast/Collar: With , , , Ordering Provider - AHSAN BINGHAM PA-C , KNEE RIGHT 1 OR 2 Son 07-0 KNEE RIGHT 1 OR 2 [facility] Department of Radiology [address] [place] [phone] ======== Patient Name: MICHELLE BE : 1960 [...] osteoarthritis Electronically signed by:Anup Ellison. Transcribed by: [email or web address], User Resident: Electronically Signed by: ANUP ELLISON @ 10/06/2018 02:48 PM Normal [facility] Comment on above: Order Comment: , Vie ws (X-RAY, KNEE): Radiologic Protocol , Weight Bearing?: N , With or Without Brace/Cast/Collar: With , Views (X-RAY, KNEE): Radiologic Protocol , Weight Bearing?: N , With or Without Brace/Cast/Collar: With , , , Ordering Provider - AHSAN BINGHAM PA-C , KNEE RIGHT 1 OR 2 [facility] 08-05 KNEE RIGHT 1 OR 2 S [facility] Department of Radiology [address] [place] [id number] ======== Patient Name: MICHELLE BE : [...] VWS ======== KNEE RIGHT 1 OR 2 [facility] 08/26/2018 2:54 PM EDT SIGNS AND [...] effusion Electronically signed by:Anup Ellison. Transcribed by: [email or web address], User Resident: Electronically Signed by: ANUP ELLISON @ 08/26/2018 04:56 PM Normal [facility] Comment on above: Order Comment: , Vie ws (X-RAY, KNEE): Radiologic Protocol , Weight Bearing?: N , With or Without Brace/Cast/Collar: With , Views (X-RAY, KNEE): Radiologic Protocol , Weight Bearing?: N , With or Without Brace/Cast/Collar: With , , , Ordering Provider - AHSAN BINGHAM PA-C , KNEE RIGHT 1 OR 2 [facility] 07-06 KNEE RIGHT 1 OR 2 [facility] Department of Radiology [address] [place] [id number] ======== Patient Name: MICHELLE BE : [...] compartment Electronically signed by:Anup Ellison. Transcribed by: [email or web address], User Resident: Electronically Signed by: ANUP ELLISON @ 07/29/2018 03:41 PM Normal [facility] Comment on above: Order Comment: , Mabel ws (X-RAY, KNEE): Radiologic Protocol , Weight Bearing?: N , With or Without Brace/Cast/Collar: With , Views (X-RAY, KNEE): Radiologic Protocol , Weight Bearing?: N , With or Without Brace/Cast/Collar: With , , , Ordering Provider - AHSAN BINGHAM PA-C , KNEE RIGHT 3 VWSon 9 KNEE RIGHT 3 [facility] Department of Radiology [address] [place] [address] ======== Patient Name: MICHELLE BE [...] BINGHAM PA-C , Exam: KNEE RIGHT 3 [facility] ======== KNEE RIGHT 3 VWS 07/15/2018 [...] knee Electronically signed by:Anup Ellison. Transcribed by: [email or web address], User Resident: Electronically Signed by: ANUP ELLISON @ 07/15/2018 03:31 PM Normal [facility] Comment on above: Order Comment: , Vie ws (X-RAY, KNEE): Radiologic Protocol , Weight Bearing?: N , With or Without Brace/Cast/Collar: With , Views (X-RAY, KNEE): Radiologic Protocol , Weight Bearing?: N , With or Without Brace/Cast/Collar: With , , , Ordering Provider - AHSAN BINGHAM PA-C , Operative Reporton 9 Operative Report MR#: [id number] [facility] Pt. Name: Michelle Be Room #: 0 Discharge Date: Birthdate: 1960 OPERATIVE REPORT DATE [...] Duarte MD Date Trans: 07/03/2018 04:28 A/terry [id number] Normal [facility] *ANAEROBIC CULTUREon 019 *ANAEROBIC CULTURE Clinical Report: (D) Specimen/Source: SWAB/RT KNEE Collected: 07/02/2018 13:53 Status: Final Last Updated: 07/07/2018 08:02 CULT RES (Final) No Anaerobes Isolated 5 Days Normal [facility] Comment on above: Performed By: #### 3 0312 #### [address] *WOUND CULTUREon 07-02-2018 *WOUND CULTURE Clinical Report: (D) Specimen/Source: WOUND/INTRAOP SPEC Collected: 07/02/2018 13:53 Status: Final Last Updated: 07/07/2018 10:13 (1) #1 RT KNEE GRAM (Final) Rare Polys No Bacteria Seen CULT RES (Final) No Growth Day 5 Normal [facility] Comment on above: Order Comment: #1 RT KNEE Performed By: #### 3 0343 #### [address] KNEE RIGHT 1 OR 2 [facility] 06-05 KNEE RIGHT 1 OR 2 S [facility] Department of Radiology [address] [place] [id number] ======== Patient Name: MICHELLE BE : [...] Electronically signed by:Debra Del Cid. Transcribed by: [email or web address], User Resident: Electronically Signed by: DEBRA DEL CID @ 07/02/2018 02:03 PM Normal [facility] Comment on above: Order Comment: ORIF VS PERCUTANEOUS FIXATION RIGHT PATELLA POC GLUCOSE LABon 07-02-2018 Glucose [Mass/Vol] 108 mg/dL High 70-100 [facility] Comment on above: Performed By: #### 8 5499 #### [facility] [address] [place] [address], [facility] APTTon 06-30-2018 aPTT Coag (Bld) [Time] 30.6 s Normal 25.0-35.0 [facility] Comment on above: Result Comment: ALL [...] THIS PURPOSE. Performed By: #### 5 6101, [id number] #### [facility] [address] [facility]. [address] BASIC METABOLIC PANELon - Calcium [Mass/Vol] 9.7 mg/dL Normal 8.6-10.3 [facility] Comment on above: Performed By: #### 0 0071 #### [facility] [address] [facility] [place] [address], [facility] Chloride [Moles/Vol] 102 mmol/L Normal 98-107 [facility] Comment on above: Performed By: #### 0 0071 #### [facility] [address] [facility] [place] [address], [facility] CO2 [Moles/Vol] 28 mmol/L Normal 21-31 [facility] Comment on above: Performed By: #### 0 0071 #### [facility] [address] [facility] [place] [address], [facility] Creatinine [Mass/Vol] 1.20 mg/dL Normal 0.60-1.20 [facility] Comment on above: Performed By: #### 0 0071 #### [facility] [address] [facility] [place] [address], [facility] GFR/1.73 sq M predicted among blacks MDRD (S/P/Bld) [Vol rate/Area] 56 ml/min/1.73sq m Abnormal >60 [facility] Comment on above: Performed By: #### 0 0071 #### [facility] [address] [place] [id number], [facility] GFR/1.73 sq M predicted among non-blacks MDRD (S/P/Bld) [Vol rate/Area] 47 ml/min/1.73sq m Abnormal >60 [facility] Comment on above: Performed By: #### 0 0071 #### [facility] [address] Glucose [Mass/Vol] 97 mg/dL Normal 70-100 [facility] Comment on above: Performed By: #### 0 0071 #### [facility] [address] Potassium [Moles/Vol] 4.1 mmol/L Normal 3.5-5.1 [facility] Comment on above: Performed By: #### 0 0071 #### [facility] [address] Sodium [Moles/Vol] 137 mmol/L Normal 136-145 [facility] Comment on above: Performed By: #### 0 0071 #### [facility] [address] Urea nitrogen [Mass/Vol] 19 mg/dL Normal 7-25 [facility] Comment on above: Performed By: #### 0 0071 #### [facility] [address] CBC W/DIFFon 06-30-2018 ABS BASOPHILS 0.1 10*3/uL Normal 0.0-0.2 [facility] Comment on above: Performed By: #### 5 0103 #### [facility] [address] ABS IMM GRANS 0.0 10*3/uL Normal 0.0-0.2 [facility] Comment on above: Performed By: #### 5 0103 #### [facility] [address] ABS NEUTROPHILS 6.4 10*3/uL Normal 1.6-7.6 [facility] Comment on above: Performed By: #### 5 0103 #### [facility] [address] [place] [address], [facility] Basophils/100 WBC (Bld) 0.7 % Normal 0.0-1.0 [facility] Comment on above: Performed By: #### 5 0103 #### [facility] [address] [place] [address], [facility] Eosinophils (Bld) [#/Vol] 0.2 10*3/uL Normal 0.0-0.5 [facility] Comment on above: Performed By: #### 5 0103 #### [facility] [address] [place] [address], [facility] Eosinophils/100 WBC (Bld) 1.5 % Normal 0.0-6.0 [facility] Comment on above: Performed By: #### 5 0103 #### [facility] [address] [facility] [address] Erythrocyte distribution width (RBC) [Ratio] 14.4 % Normal 11.5-15.0 [facility] Comment on above: Performed By: #### 5 0103 #### [facility] [address] [facility] [place] [address], [facility] Hematocrit (Bld) [Volume fraction] 40.6 % Normal 36.0-45.0 [facility] Comment on above: Performed By: #### 5 0103 #### [facility] [address] [facility] [place] [address], [facility] Hemoglobin (Bld) [Mass/Vol] 13.3 g/dL Normal 12.0-15.0 [facility] Comment on above: Performed By: #### 5 0103 #### [facility] [address] [place] [id number], [facility] IMMATURE GRANS 0.4 % Normal 0.0-1.0 [facility] Comment on above: Performed By: #### 5 3 #### [facility] [address] [place] [address], [facility] Lymphocytes (Bld) [#/Vol] 2.6 10*3/uL Normal 1.2-4.0 [facility] Comment on above: Performed By: #### 5 3 #### [facility] [address] [facility] [place] [address], [facility] Lymphocytes/100 WBC (Bld) 26.5 % Normal 20.0-45.0 [facility] Comment on above: Performed By: #### 3 #### [facility] [address] [place] [address], [facility] MCH (RBC) [Entitic mass] 27.4 pg Normal 27.0-33.0 [facility] Comment on above: Performed By: #### 102 #### [facility] [address] [facility] [address] MCHC (RBC) [Mass/Vol] 32.8 g/dL Normal 32.0-35.0 [facility] Comment on above: Performed By: #### 102 #### [facility] [address] [facility] [place] [address], [facility] MCV (RBC) [Entitic vol] 83.5 fL Normal 82.0-98.0 [facility] Comment on above: Performed By: #### 5 3 #### [facility] [address] [facility] [place] [address], [facility] Monocytes (Bld) [#/Vol] 0.5 10*3/uL Normal 0.1-1.0 [facility] Comment on above: Performed By: #### 5 3 #### [facility] [address] [facility] [place] [address], [facility] MONOS 5.0 % Normal 5.0-12.0 [facility] Comment on above: Performed By: #### 5 0103 #### [facility] [address] [facility] [place] [address], [facility] Neutrophils/100 WBC (Bld) 65.9 % Normal 40.0-72.0 [facility] Comment on above: Performed By: #### 102 #### [facility] [address] [facility] [place] [address], [facility] Nucleated RBC/100 WBC (Bld) [Ratio] 0 % Normal 0-0 [facility] Comment on above: Performed By: #### 5 0103 #### [facility] [address] [facility] [place] [address], [facility] PLAT [address] 290 10*3/uL Normal 150-400 [facility] Comment on above: Performed By: #### 102 #### [facility] [address] [facility] [place] [address], [facility] RBC (Bld) [#/Vol] 4.86 10*6/uL Normal 3.80-5.00 [facility] Comment on above: Performed By: #### 102 #### [facility] [address] [facility] [place] [address], [facility] WBC (Bld) [#/Vol] 9.68 10*3/uL Normal 4.00-10.60 [facility] Comment on above: Performed By: #### 102 #### [facility] [address] [place] [address], [facility] KNEE RIGHT 1 OR 2 VWSon 06-05 KNEE RIGHT 1 OR 2 VWS [facility] Department of Radiology [address] [place] [address] ======== Patient Name: MICHELLE BE : 1960 Sex: F Age: Race: White Pt. 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 Transcribed by: [email or web address], User Resident: Electronically Signed by: DEBRA DEL CID @ 06/30/2018 11:52 AM Normal [facility] Comment on above: Order Comment: , Mabel ws (X-RAY, KNEE): Radiologic Protocol , Weight Bearing?: N , With or Without Brace/Cast/Collar: With , Views (X-RAY, KNEE): Radiologic Protocol , Weight Bearing?: N , With or Without Brace/Cast/Collar: With , , , Ordering Provider - AHSAN BINGHAM PA-C , PROTHROMBIN TIMEon 9 INR Coag (PPP) [Relative time] 0.98 {INR} Normal 0.91-1.16 [facility] Comment on above: Result Comment: ACCC [...] CHEST 1995;108:[id number]-246S. Performed By: #### 5 6101, [id number] #### [facility] [address] PT Coag (PPP) [Time] 13.0 s Normal 12.3-14.8 [facility] Comment on above: Result Comment: ALL RESULTS MUST BE INTERPRETED WITH RESPECT TO BLOOD DRAWING ARTIFACT OR DILUTION ERROR OF ANTICOAGULANT AT THE TIME OF SAMPLING. Performed By: #### 5 6101, [id number] #### [address] [address] KNEE RIGHT 3 [facility] 9 KNEE RIGHT 3 [facility] Department of Radiology [address] [place] [id number] ======== Patient Name: MICHELLE BE : [...] ZHANG PA-C , Exam: KNEE RIGHT 3 [facility] ======== KNEE RIGHT 3 [facility] 06/15/2018 1:34 PM EDT SIGNS AND [...] effusion Electronically signed by:Anup Ellison. Transcribed by: [email or web address], User Resident: Electronically Signed by: ANUP ELLISON @ 06/15/2018 03:50 PM Normal [facility] Comment on above: Order Comment: , Isaiah ght Bearing?: Y , Weight Bearing?: Y , , , Ordering Mariela ZHANG PA-C , Vital Signs Date Time Vital Sign Value Performing Clinician Facility 05-12-2024 10:04-0500 Body height 162.6 cm Adelaida Carrion NP Work Phone: [facility] 05-12-2024 10:04-0500 Body mass index (BMI) [Ratio] 49.16 kg/m2 Adelaida Carrion EMERY [employer]ER Work Phone: [facility] 05-12-2024 10:04-0500 Body temperature 98.49 [degF] Adelaida Carrion EMERY [employer] Work Phone: [facility] 05-12-2024 10:04-0500 Body weight 129.91 kg Adelaida Carrion [employer]ERY [employer] Work Phone: [facility] 05-12-2024 10:04-0500 Diastolic blood pressure 78 mm[Hg] Adelaida Carrion [employer] Work Phone: [facility] 05-12-2024 10:04-0500 Heart rate 80 /min Adelaida Aichholz [employer] Work Phone: [facility] 05-12-2024 10:04-0500 Respiratory rate 20 /min Adelaida Aichholz EMERY [employer]ER Work Phone: [facility] 05-12-2024 10:04-0500 SaO2% (BldA) [Mass fraction] 98 % Adelaida Aichholz EMERY [employer]INDER Work Phone: [facility] 05-12-2024 10:04-0500 Systolic blood pressure 118 mm[Hg] Adelaida Aichholz EMERY [employer]ER Work Phone: [facility] 03-16-2024 09:53-0500 Body height 162.6 cm Adelaida Aichholz [employer]ERY [employer] Work Phone: [facility] 03-16-2024 09:53-0500 Body mass index (BMI) [Ratio] 48.41 kg/m2 Adelaida Aichholz [employer]ERY [employer]ER Work Phone: [facility] 03-16-2024 09:53-0500 Body temperature 98.01 [degF] Adelaida Aichholz EMERY [employer]ER Work Phone: [facility] 03-16-2024 09:53-0500 Body weight 127.91 kg Adelaida Aichholz [employer]ERY [employer] Work Phone: [facility] 03-16-2024 09:53-0500 Diastolic blood pressure 80 mm[Hg] Adelaida Aichholz EMERY [employer]ER Work Phone: [facility] 03-16-2024 09:53-0500 Heart rate 79 /min Adelaida Aichholz [employer]ERY [employer] Work Phone: [facility] 03-16-2024 09:53-0500 Respiratory rate 18 /min Adelaida Aichholz EMERY [employer]ER Work Phone: [facility] 03-16-2024 09:53-0500 SaO2% (BldA) [Mass fraction] 98 % Adelaida Aichholz EMERY [employer]INDER Work Phone: [facility] 03-16-2024 09:53-0500 Systolic blood pressure 120 mm[Hg] Adelaida Iglesiasnena [employer]ERY [employer]ER Work Phone: [facility] 03-10-2024 15:20-0500 Body height 162.6 cm Rachel Mitchell PA Work Phone: [facility] 03-10-2024 15:20-0500 Body mass index (BMI) [Ratio] 48.41 kg/m2 Rachel Mitchell PA Work Phone: [facility] 03-10-2024 15:20-0500 Body weight 127.91 kg Rachel Mitchell PA Work Phone: [facility] 03-10-2024 15:20-0500 Diastolic blood pressure 68 mm[Hg] Rachel Mitchell PA Work Phone: [facility] 03-10-2024 15:20-0500 Heart rate 74 /min Rachel Mitchell PA Work Phone: [facility] 03-10-2024 15:20-0500 Respiratory rate 16 /min Rachelgeorgette Mitchell PA Work Phone: [facility] 03-10-2024 15:20-0500 SaO2% (BldA) [Mass fraction] 98 % Rachel Mitchell PA Work Phone: [facility] 03-10-2024 15:20-0500 Systolic blood pressure 102 mm[Hg] Rachel Mitchell PA Work Phone: [facility] 03-01-2024 12:48-0500 Body height 162.6 cm Juany Lowe PA Work Phone: [facility] 03-01-2024 12:48-0500 Body mass index (BMI) [Ratio] 48.92 kg/m2 Juany Lowe PA Work Phone: [facility] 03-01-2024 12:48-0500 Body weight 129.28 kg Juany Lowe PA Work Phone: [facility] 03-01-2024 12:48-0500 Diastolic blood pressure 88 mm[Hg] Juany Lowe PA Work Phone: [facility] 03-01-2024 12:48-0500 Systolic blood pressure 140 mm[Hg] Juany Leggett PA Work Phone: [facility] 02-16-2024 11:18-0500 Body height 162.6 cm Adelaida Sheyla [employer] Work Phone: [facility] 02-16-2024 11:18-0500 Body mass index (BMI) [Ratio] 50.77 kg/m2 Adelaida Kelsiez [employer] Work Phone: [facility] 02-16-2024 11:18-0500 Body temperature 98.49 [degF] Adelaida Sheyla [employer] Work Phone: [facility] 02-16-2024 11:18-0500 Body weight 134.17 kg Adelaida Sheyla [employer] Work Phone: [facility] 02-16-2024 11:18-0500 Diastolic blood pressure 82 mm[Hg] Adelaida Kelsiez [employer]ERY [employer] Work Phone: [facility] 02-16-2024 11:18-0500 Heart rate 69 /min Adelaida Kelsiez [employer]ERY [employer]ER Work Phone: [facility] 02-16-2024 11:18-0500 Respiratory rate 20 /min Adelaida Kelsiez [employer]ERY [employer]ER Work Phone: [facility] 02-16-2024 11:18-0500 SaO2% (BldA) [Mass fraction] 98 % Adelaida Sheyla [employer] Work Phone: [facility] 02-16-2024 11:18-0500 Systolic blood pressure 122 mm[Hg] Adelaida Kelsiez [employer]ER Work Phone: [facility] 01-28-2024 13:46-0400 Body height 162.6 cm Adelaida Sheyla [employer] Work Phone: [facility] 01-28-2024 13:46-0400 Body mass index (BMI) [Ratio] 48.99 kg/m2 Adelaida Aichholz [employer] Work Phone: [facility] 01-28-2024 13:46-0400 Body temperature 98.71 [degF] Adelaida Yingmarquesholz [employer]ER Work Phone: [facility] 01-28-2024 13:46-0400 Body weight 129.46 kg Adelaida Merryholz [employer] Work Phone: [facility] 01-28-2024 13:46-0400 Diastolic blood pressure 78 mm[Hg] Adelaida Yinghholz EMERY [employer]ER Work Phone: [facility] 01-28-2024 13:46-0400 Heart rate 81 /min Adelaida Yingmarquesholz [employer]ER Work Phone: [facility] 01-28-2024 13:46-0400 Respiratory rate 18 /min Adelaida Yinghholz [employer] Work Phone: [facility] 01-28-2024 13:46-0400 SaO2% (BldA) [Mass fraction] 99 % Adelaida Merryholz [employer]ERY [employer]ER Work Phone: [facility] 01-28-2024 13:46-0400 Systolic blood pressure 110 mm[Hg] Adelaida Merryholz [employer]ERY [employer]ER Work Phone: [facility] 01-04-2024 09:39-0400 Body height 162.6 cm Adelaida Yingmarquesholz [employer]ER Work Phone: [facility] 01-04-2024 09:39-0400 Body mass index (BMI) [Ratio] 48.75 kg/m2 Adelaida Yinghholz [employer]ERY [employer]ER Work Phone: [facility] 01-04-2024 09:39-0400 Body temperature 97.81 [degF] Adelaida Yinghholz [employer]ERY [employer]ER Work Phone: [facility] 01-04-2024 09:39-0400 Body weight 128.82 kg Adelaida Yinghholz [employer]ER Work Phone: [facility] 01-04-2024 09:39-0400 Diastolic blood pressure 78 mm[Hg] Adelaida Carrion [employer] Work Phone: [facility] 01-04-2024 09:39-0400 Heart rate 67 /min Adelaida Carrion [employer] Work Phone: [facility] 01-04-2024 09:39-0400 Respiratory rate 19 /min Adelaida Carrion [employer] Work Phone: [facility] 01-04-2024 09:39-0400 SaO2% (BldA) [Mass fraction] 99 % Adelaida Carrion [employer] Work Phone: [facility] 01-04-2024 09:39-0400 Systolic blood pressure 116 mm[Hg] Adelaida Carrion [employer] Work Phone: [facility] 12-09-2023 10:14-0400 Body height 162.6 cm Juany Gillmor [employer] Work Phone: [facility] 12-09-2023 10:14-0400 Body mass index (BMI) [Ratio] 48.92 kg/m2 Juany Samanthamor [employer]ER Work Phone: [facility] 12-09-2023 10:14-0400 Body weight 129.28 kg Juany Samatnhamor [employer]ER Work Phone: [facility] 12-09-2023 10:14-0400 Diastolic blood pressure 78 mm[Hg] Juany Gillmor [employer] Work Phone: [facility] 12-09-2023 10:14-0400 SaO2% (BldA) [Mass fraction] 97 % Juany Gillmor [employer] Work Phone: [facility] 12-09-2023 10:14-0400 Systolic blood pressure 122 mm[Hg] Juany Gillmor [employer] Work Phone: [facility] 12-08-2023 15:24-0400 Body height 162.6 cm Sonam Brown [employer] Work Phone: [facility] 12-08-2023 15:24-0400 Body mass index (BMI) [Ratio] 48.92 kg/m2 Sonam Brown [employer] Work Phone: [facility] 12-08-2023 15:24-0400 Body weight 129.28 kg Sonam Brown [employer] Work Phone: [facility] 12-08-2023 15:24-0400 Diastolic blood pressure 77 mm[Hg] Sonam Franzgel [employer] Work Phone: [facility] 12-08-2023 15:24-0400 Heart rate 72 /min Sonam Brown [employer] Work Phone: [facility] 12-08-2023 15:24-0400 Systolic blood pressure 134 mm[Hg] Sonam Brown [employer] Work Phone: [facility] 05-18-2023 16:30-0500 Body height 162.6 cm Adelaida Sheyla [employer] Work Phone: [facility] 05-18-2023 16:30-0500 Body mass index (BMI) [Ratio] 47.89 kg/m2 Adelaida Sheyla [employer] Work Phone: [facility] 05-18-2023 16:30-0500 Body temperature 97.3 [degF] Adelaida Kelsiez [employer] Work Phone: [facility] 05-18-2023 16:30-0500 Body weight 126.55 kg Adelaida Kelsiez [employer] Work Phone: [facility] 05-18-2023 16:30-0500 Diastolic blood pressure 80 mm[Hg] Adelaida Kelsiez [employer]ERY [employer] Work Phone: [facility] 05-18-2023 16:30-0500 Heart rate 76 /min Adelaida Yinghholz [employer]ERY [employer]ER Work Phone: [facility] 05-18-2023 16:30-0500 Respiratory rate 19 /min Adelaida Yinghholz [employer]ER Work Phone: [facility] 05-18-2023 16:30-0500 SaO2% (BldA) [Mass fraction] 97 % Adelaida Aichholz [employer] Work Phone: [facility] 05-18-2023 16:30-0500 Systolic blood pressure 134 mm[Hg] Adelaida Aichholz [employer]ERY [employer] Work Phone: [facility] 03-23-2023 12:10-0500 Diastolic blood pressure 98 mm[Hg] Adelaida Aichholz Work Phone: [facility] 03-23-2023 12:10-0500 Heart rate 76 /min Adelaida Aichholz Work Phone: [facility] 03-23-2023 12:10-0500 Respiratory rate 18 /min Adelaida Aichholz Work Phone: [facility] 03-23-2023 12:10-0500 SaO2% (BldA) [Mass fraction] 99 % Adelaida Aichholz Work Phone: [facility] 03-23-2023 12:10-0500 Systolic blood pressure 162 mm[Hg] Adelaida Aichholz Work Phone: [facility] 03-23-2023 10:53-0500 Body height 162.56 cm Adelaida Aichholz Work Phone: [facility] 03-23-2023 10:53-0500 Body weight 125.64 kg Adelaida Aichholz Work Phone: [facility] 12-19-2022 14:55-0400 Body height 162.56 cm Rosemary Kirkland Other [employer] [facility] [employer] Other 12-19-2022 14:55-0400 Body mass index (BMI) [Ratio] 47.85 kg/m2 Rosemary Kirkland Other [employer] [facility] [employer] Other 12-19-2022 14:55-0400 Body temperature 97.8 [degF] Rosemary Kirkland Other [employer] Other 12-19-2022 14:55-0400 Body weight 126.46 kg Rosemary Kirkland Other [employer] Other 12-19-2022 14:55-0400 Respiratory rate 20 /min Rosemary Kirkland Other [employer] Other 12-19-2022 14:55-0400 SaO2% (BldA) [Mass fraction] 95 % Rosemary Kirkland Other [facility] Other 11-20-2022 13:12-0400 Body temperature 97.7 [degF] Adelaida Aichholz Work Phone: [facility] 11-20-2022 13:12-0400 SaO2% (BldA) [Mass fraction] 96 % Adelaida Aichholz Work Phone: [facility] 11-20-2022 07:44-0400 Diastolic blood pressure 90 mm[Hg] Adelaida Aichholz Work Phone: [facility] 11-20-2022 07:44-0400 Heart rate 103 /min Adelaida Aichholz Work Phone: [facility] 11-20-2022 07:44-0400 Systolic blood pressure 152 mm[Hg] Adelaida Aichholz Work Phone: [facility] 11-19-2022 20:00-0400 Respiratory rate 18 /min Adelaida Aichholz Work Phone: [facility] 11-18-2022 15:18-0400 Body height 162.56 cm Adelaida Aichholz Work Phone: [facility] 11-17-2022 09:00-0400 Body weight 122.92 kg Adelaida Aichholz Work Phone: [facility] Encounters Encounter Date Encounter Type Care Provider Facility Start: 05-12-2024 End: 05-12-2024 Bamboo flowsheet Adelaida Carrion EMERY GRINDER Work Phone: [facility] Start: 05-12-2024 End: 05-12-2024 Bamboo flowsheet Adelaida Carrion EMERY GRINDER Work Phone: [facility] Start: 05-12-2024 End: 05-12-2024 Office outpatient visit 25 minutes Adelaida Carrion EMERY GRINDER Work Phone: [facility] Comment on above: Primary hypertension (CMS/HCC) (Primary Dx); Chronic kidney disease, stage 3a (HCC) (CMS/HCC); Morbid (severe) obesity due to excess calories (CMS/HCC); Body mass index (BMI) 45.0-49.9, adult (CMS/HCC); OSMANY (obstructive sleep apnea); Hemiparesis, right (CMS/HCC); Gastroesophageal reflux disease, unspecified whether esophagitis present; Metabolic encephalopathy; Essential (primary) hypertension (CMS/HCC); Allergic rhinitis, unspecified; Gastro-esophageal reflux disease without esophagitis; Bilateral lower extremity edema Start: 05-12-2024 End: 05-12-2024 ambulatory ADELAIDA CARRION Not Available Start: 05-09-2024 End: 05-09-2024 ambulatory Syeda Mancuso MD Facility: [place] Start: 04-12-2024 End: 04-12-2024 Raul REDDY Work Phone: [facility] [place] [address] [facility] Comment on above: Transient alteration of awareness (Primary Dx); Restless leg Start: 04-07-2024 End: 04-07-2024 Patient encounter procedure David Foster PhD Work Phone: [facility] Comment on above: Metabolic encephalop athy (Primary Dx); Memory change; Altered mental status, unspecified altered mental status type; Concentration deficit; PTSD (post-traumatic stress disorder) (CMS/HCC); Bipolar affective disorder, remission status unspecified (CMS/HCC); Family history of dementia; 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[facility]); OSMANY (obstructive sleep apnea) Start: 04-07-2024 End: 04-07-2024 ambulatory ADELAIDA SHEYLA Not Available Start: 03-22-2024 End: 03-22-2024 ambulatory RACHEL MITCHELL Not Available Start: 03-16-2024 End: 03-16-2024 Bamboo flowsheet Adelaida Carrion EMERY GRINDER Work Phone: [facility] Start: 03-16-2024 End: 03-16-2024 Bamboo flowsheet Adelaida Sheyla EMERY GRINDER Work Phone: [facility] Start: 03-16-2024 End: 03-16-2024 Office outpatient visit 25 minutes Adelaida Carrion EMERY GRINDER Work Phone: [facility] Comment on above: Metabolic encephalop athy (Primary Dx); OSMANY (obstructive sleep apnea); Morbid obesity ([facility]); Bilateral lower extremity edema; Tobacco dependence; Bipolar disorder with severe depression ([facility]); At risk for polypharmacy; Anxiety; Primary hypertension ([facility]); Right bundle branch block (RBBB) determined by electrocardiography Start: 03-16-2024 End: 03-16-2024 ambulatory ADELAIDA SHEYLA Not Available Start: 03-15-2024 End: 03-16-2024 Telephone encounter David Norman MA [facility] Start: 03-14-2024 End: 03-14-2024 [email or web address] David Foster PhD Work Phone: [facility] Start: 03-14-2024 End: 03-14-2024 Bam[employer] Jade Solutionsizabela Foster PhD Work Phone: [facility] Start: 03-14-2024 End: 03-14-2024 ambulatory DAVID FOSTER Not Available Start: 03-14-2024 End: 03-14-2024 Patient encounter procedure David Foster PhD Work Phone: [facility] Comment on above: Altered mental statu s, unspecified altered mental status type (Primary Dx); Memory change; Concentration deficit; 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 (CMS/HCC); PTSD (post-traumatic stress disorder) (CMS/HCC); Bipolar affective disorder, remission status unspecified (CMS/HCC); Family history of dementia Start: 03-10-2024 End: 03-10-2024 Office outpatient visit 25 minutes Rachel REDDY Work Phone: [facility] Comment on above: Altered mental statu s, unspecified altered mental status type (Primary Dx); Restless leg; 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CMS/HCC); OSMANY (obstructive sleep apnea) Start: 03-10-2024 End: 03-10-2024 ambulatory RACHEL MITCHELL Not Available Start: 03-09-2024 ambulatory Eduardo Monk Facility:[facility] Start: 03-03-2024 End: 03-07-2024 Evaluation and management of inpatient Adelaida Carrion Facility:[facility] Start: 03-02-2024 End: 03-04-2024 Clinisync Result Encounter Generic External Data Provider [facility] External Department Unsolicited Start: 03-02-2024 End: 03-04-2024 Clinisync Result Encounter Generic External Data Provider [facility] External Department Unsolicited Start: 03-02-2024 End: 03-02-2024 Refill Adelaida Carrion EMERY GRINDER [facility] Comment on above: Yeast infection of [...] Start: 02-28-2024 End: 02-29-2024 Refill Adelaida Carrion EMERY GRINDER Work Phone: [facility] Comment on above: Allergic rhinitis, u nspecified Start: 02-24-2024 End: 02-24-2024 Refill Adelaida Sheyla EMERY GRINDER Work Phone: [facility] Comment on above: Essential (primary) hypertension (CMS/HCC); Allergic rhinitis, unspecified Start: 02-16-2024 End: 02-16-2024 Bamboo flowsheet Adelaida Carrion EMERY GRINDER Work Phone: [facility] Start: 02-16-2024 End: 02-23-2024 Clinisync Result Encounter Adelaida Sheyla EMERY GRINDER Work Phone: [facility] External Department Unsolicited Start: 02-16-2024 End: 02-23-2024 Clinisync Result Encounter Adelaida Sheyla EMERY GRINDER Work Phone: [facility] Department Unsolicited Start: 02-16-2024 End: 02-16-2024 Patient encounter procedure Adelaida Sheyla EMERY GRINDER Work Phone: [facility] Start: 02-16-2024 End: 02-16-2024 Periodic preventive med est patient 40-64yrs Adelaida Carrion EMERY GRINDER Work Phone: [facility] Comment on above: Well woman exam with routine gynecological exam (Primary Dx); Morbid obesity (CMS/HCC) Start: 02-16-2024 End: 02-16-2024 ambulatory ADELAIDA CARRION Not Available Start: 02-04-2024 End: 02-04-2024 Refill Sonam Brown EMERY GRINDER Work Phone: [facility] [place] [facility] Comment on above: Restless leg Start: 01-28-2024 End: 01-28-2024 Bamboo flowsheet Adelaida Carrion EMERY GRINDER Work Phone: [facility] Start: 01-28-2024 End: 01-28-2024 Bamboo flowsheet Adelaida Carrion EMERY GRINDER Work Phone: [facility] Start: 01-28-2024 End: 01-28-2024 Office outpatient visit 15 minutes Adelaida Carrion EMERY GRINDER Work Phone: [facility] Comment on above: Acute cystitis witho ut hematuria (Primary Dx); Tobacco dependence; Needs flu shot; Morbid obesity (CMS/HCC) Start: 01-28-2024 End: 01-28-2024 ambulatory ADELAIDA CARRION Not Available Start: 01-25-2024 End: 01-25-2024 ambulatory Syeda Mancuso MD Facility:[facility] Start: 01-21-2024 End: 01-25-2024 Clinisync Result Encounter Generic External Data Provider [facility] External Department Unsolicited Start: 01-21-2024 End: 01-25-2024 Clinisync Result Encounter Generic External Data Provider [facility] External Department Unsolicited Start: 01-05-2024 End: 01-05-2024 Clinisync Result Encounter Adelaida Carrion EMERY GRINDER Work Phone: [facility] External Department Unsolicited Start: 01-05-2024 End: 01-05-2024 Clinisync Result Encounter Adelaida Carrion EMERY GRINDER Work Phone: [facility] External Department Unsolicited Start: 01-04-2024 End: 01-04-2024 Bamboo flowsheet Adelaida Carrion EMERY GRINDER Work Phone: [facility] Start: 01-04-2024 End: 01-04-2024 Bamboo flowsheet Adelaida Carrion EMERY GRINDER Work Phone: [facility] Start: 01-04-2024 End: 01-04-2024 Office outpatient visit 25 minutes Adelaida Carrion EMERY GRINDER Work Phone: [facility] Comment on above: Bilateral lower extr emity edema (Primary Dx); Essential (primary) hypertension (CMS/HCC); Allergic rhinitis, unspecified; OSMANY (obstructive sleep apnea); Primary hypertension (CMS/HCC); Morbid obesity (CMS/HCC) Start: 01-04-2024 End: 01-04-2024 ambulatory ADELAIDA AICHHOLZ Not Available Start: 12-30-2023 End: 12-30-2023 Refill Adelaida Aichholz EMERY GRINDER Work Phone: [facility] Comment on above: Lower extremity elis a Start: 12-09-2023 End: 12-09-2023 Office outpatient visit 25 minutes Juany Escalanter EMERY GRINDER Work Phone: [facility] Comment on above: OSMANY (obstructive sle ep apnea) (Primary Dx); Restless leg Start: 12-09-2023 End: 12-09-2023 ambulatory JUANY GILLMOR Not Available Start: 12-08-2023 End: 12-08-2023 ambulatory SONAM C WINDNAGEL Not Available Start: 12-08-2023 End: 12-08-2023 Office outpatient visit 25 minutes Sonam C Windnagel EMERY GRINDER Work Phone: [facility] Comment on above: 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CMS /HCC) (Primary Dx); Restless leg; Metabolic encephalopathy Start: 12-08-2023 End: 12-08-2023 Bamboo flowsheet Snoam C Windnagel EMERY GRINDER Work Phone: [facility] Start: 12-08-2023 End: 12-08-2023 Bamboo flowsheet Sonam C Windnagel EMERY GRINDER Work Phone: [facility] Start: 11-27-2023 End: 11-27-2023 Refill Adelaida Aichholz EMERY GRINDER Work Phone: [facility] Comment on [...] Not Available Start: 05-21-2023 Refill Adelaida Carrion EMERY GRINDER Work Phone: [facility] Comment on above: Acute cystitis with hematuria (Primary Dx) Start: 05-18-2023 End: 05-18-2023 Office outpatient visit 25 minutes Adelaida Carrion EMERY GRINDER Work Phone: [facility] Comment on above: Encounter for annual wellness visit (AWV) in Medicare patient (Primary Dx); OSMANY (obstructive sleep apnea); Chronic pain disorder; Gastroesophageal reflux disease, unspecified whether esophagitis present; Overactive bladder; Lower extremity edema; Pre-diabetes; Morbid obesity ([facility]); Yeast infection of the skin; Tobacco dependence; Mood disorder ([facility]); Primary hypertension ([facility]); Left hip pain; Open wound of anterior abdominal wall, initial encounter Start: 05-18-2023 End: 05-18-2023 ambulatory ADELAIDA MERRYHOLZ Not Available Start: 05-18-2023 Bamboo flowsheet Adelaida Carrion EMERY GRINDER Work Phone: [facility] Start: 05-18-2023 Bamboo flowsheet Adelaida Carrion EMERY GRINDER Work Phone: [facility] Start: 05-18-2023 End: 05-18-2023 Patient encounter procedure Adelaida Carrion EMERY GRINDER Work Phone: [facility] Start: 03-23-2023 End: 03-23-2023 Admission to same day surgery center Adelaida Carrion Work Phone: [facility] Work Phone: Start: 03-23-2023 End: 03-23-2023 ambulatory Adelaida Carrion Work Phone: [facility] Work Phone: Start: 02-12-2023 End: 02-12-2023 ambulatory Jace Graham Other [employer] Other Start: 02-12-2023 Telephone encounter 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 Facility:[facility]1 Start: 08-08-2022 End: 08-09-2022 ambulatory INTERIOR DESIGN PROJECT MANAGER ADELAIDA CARRION Facility:H1 Start: 07-25-2022 End: 07-26-2022 ambulatory INTERIOR DESIGN PROJECT MANAGER ADELAIDA MERRYHOLZ Facility:[facility]1 Start: 07-15-2022 End: 07-15-2022 ambulatory NARENDRANATH LAKSHMIPATHY . Facility:H1 Start: 07-11-2022 ambulatory NARENDRANATH LAKSHMIPATHY . Facility:[facility]1 Start: 06-26-2022 End: 06-27-[address] FINA NIXON . Facility:H1 Start: 06-11-2022 ambulatory INTERIOR DESIGN PROJECT MANAGER ADELAIDA CARRION Facil ity:H1 Start: 05-21-2022 End: 06-11-2022 ambulatory INTERIOR DESIGN PROJECT MANAGER ADELAIDA MERRYHOLZ Facility:H1 Start: 05-08-2022 End: 05-09-2022 ambulatory LIVIER CARRION Facility:[facility]1 Start: 04-28-2022 End: 04-28-2022 ambulatory LIVIER CARRION Facility:H1 Start: 04-03-2022 End: 04-04-[address] FINA NIXON . Facility:H1 Start: 03-19-2022 End: 03-20-2022 ambulatory LIVIER PINEDAKUSHNena Facility:H1 Start: 02-20-2022 End: 02-20-2022 ambulatory GILMER PURA Facility:H1 Start: 01-10-2022 End: 02-12-2022 ambulatory BRIDGETTE Ca [facility] Facility:H1 Start: 01-02-2022 End: 01-03-[address] FINA NIXON . Facility:H1 Start: 01-01-2022 End: 01-02-2022 ambulatory BRIDGETTE Ca [facility] Facility:H1 Start: 12-16-2021 End: 12-16-2021 ambulatory LIVIER WITT YINGMarquesKUSHNena Facility:H1 Start: 11-21-2021 End: 11-22-[address] DOCTOR BERGERON Facility:H1 Start: 10-03-2021 End: 10-04-[address] FINA NIXON . Facility:H1 Start: 09-19-[address] FINA NIXON . Faci lity:H1 Start: 09-12-2021 End: 09-12-2021 ambulatory LIVIER CARRION Facility:H1 Start: 08-20-2021 End: 08-20-[address] FINA NIXON . Facility:H1 Start: 07-02-2018 End: 07-03-2018 Patient encounter procedure SUKI ESCALANTE Facility:[facility] C Procedures Date Procedure Procedure Detail Performing Clinician Start: 03-02-2024 BLOOD CULTURE 1 Generic External Data Provider Start: 02-16-2024 IGP,APTIMA HPV,AGE GDLN Adelaida Sheyla EMERY GRINDER Work Phone: Start: 01-28-2024 Urnls dip stick/tabl et rgnt non-auto w/o micrscp Adelaidamyrna Carrion EMERY GRINDER Work Phone: Start: 01-21-2024 MHPT CULT,URINE Generic External Data Provider Start: 01-05-2024 ALL BASIC METABOLIC PANEL Adelaida Carrion EMERY GRINDER Work Phone: Start: 09-18-2023 Mammography Adelaida Jayden ramos EMERY GRINDER Work Phone: Start: 03-23-2023 Screening colonoscopy L oneal Sheyla Work Phone: Start: 03-23-2023 Colonoscopy Adelaida Jayden ramos EMERY GRINDER Work Phone: Start: 09-15-2022 Mammography Adelaida Merrymarques rachel EMERY GRINDER Work Phone: Start: 08-28-2022 Microscopic observat ion [Identifier] in Cervix by Cyto stain Adelaida Carrion EMERY GRINDER Work Phone: Start: 07-02-2018 ANESTH KNEE AREA SURGERY CHAPARRITA HENDRICKS Start: 07-02-2018 REMOVAL OF SUPPORT IMPLANT SUKI EBRAMORENO Start: 07-02-2018 TREAT KNEECAP FRACTURE SUKI EBRAHEIM Plan of Treatment Date Care Activity Detail Author Start: 03-23-2033 Screening for malign ant neoplasm of colon [facility] Start: 08-28-2025 Screening for malign ant neoplasm of cervix [facility] Start: 02-15-2025 Medicare Annual Well ness (AWV) Medicare Annual Wellness (AWV) [facility] Start: 09-17-2024 Screening for malign ant neoplasm of breast Mammogram [facility] Start: 08-11-2024 End: 08-11-2024 Patient encounter procedure 08/11/2024 10:30 AM EDT [facility] [address] [place] [phone] Adelaida Carrion NP [address] [place] [address] [facility] Start: 06-22-2024 End: 06-22-2024 Patient encounter procedure 06/22/2024 11:20 AM EDT Office Visit [facility] [place] [address] [facility] [address] [place] [address] Juany Leggett PA [address] [place] [address] [facility] Start: 05-24-2024 End: 05-24-2024 Patient encounter procedure [facility] [place] [facility] Start: 05-18-2024 Medicare Annual Well ness (AWV) Medicare Annual Wellness (AWV) [facility] Start: 05-12-2024 End: 05-12-2024 [facility] Comment on above: Primary hypertension (CMS/HCC) (Primary Dx); Chronic kidney disease, stage 3a (HCC) (CMS/HCC); Morbid (severe) obesity due to excess calories (CMS/HCC); Body mass index (BMI) 45.0-49.9, adult (CMS/HCC); OSMANY (obstructive sleep apnea); Hemiparesis, right (CMS/HCC); Gastroesophageal reflux disease, unspecified whether esophagitis present; Metabolic encephalopathy Start: 04-07-2024 End: 04-07-2024 Patient encounter procedure 04/07/2024 12:30 PM EST Office Visit [facility] [address] [phone] [facility] Start: 04-04-2024 End: 04-04-2024 Patient encounter procedure 04/04/2024 1:20 PM EST Office Visit [facility] [address] [place] [phone] Adelaida Carrion NP [address] [place] [address] [facility] Start: 03-22-2024 End: 03-22-2024 Clinical Support 03/22/2024 10:00 AM EST Clinical Support [facility] [place] [facility] [address] [place] [phone] [facility] [place] [facility] Start: 03-16-2024 End: 03-16-2024 Patient encounter procedure [facility] Comment on above: Metabolic encephalop athy (Primary Dx); OSMANY (obstructive sleep apnea); Morbid obesity ([facility]); Bilateral lower extremity edema; Tobacco dependence; Bipolar disorder with severe depression ([facility]); At risk for polypharmacy; Anxiety Start: 03-14-2024 End: 03-14-2024 Patient encounter procedure 03/14/2024 10:00 AM EST Office Visit [facility] [address] [facility] [address] [place] [phone] David Foster, PhD [address] [place], [place] [id number] [facility] Start: 03-11-2024 End: 03-11-2025 EEG 2 Hour Routine EEG 2 Hour Routine Neurology Routine Altered mental status, unspecified altered mental status type Expected: 03/11/2024 (Approximate), Expires: 03/11/2025 [facility] Work Phone: Comment on above: Expected: 03/11/2024 (Approximate), Expires: 03/11/2025 Start: 03-10-2024 End: 03-10-2024 Patient encounter procedure 03/10/2024 3:40 PM EST Office Visit [facility] [address] [place] [phone] Rachel Mitchell PA [address] [place] [address] [facility] Start: 03-01-2024 End: 03-01-2024 Patient encounter procedure 03/01/2024 12:00 PM EST Office Visit [facility] [place] [address] [place] [phone] Juany Leggett PA [address] [place] [address] [facility] [place] [facility] Start: 02-29-2024 End: 02-29-2024 Patient encounter procedure 02/29/2024 2:40 PM EST Office Visit [facility] [place] [facility] [address] [place] [phone] Sonam Brown, EMERY GRINDER [address] [place], [place] [address] [facility] [place] [facility] Start: 02-16-2024 End: 02-15-2025 THIN PREP TIS PAP AND HR HPV DNA THIN PREP TIS PAP AND HR HPV DNA Pathology and Cytology Routine Well woman exam with routine gynecological exam Expected: 02/16/2024 (Approximate), Expires: 02/15/2025 [facility] Work Phone: Comment on above: Expected: 02/16/2024 (Approximate), Expires: 02/15/2025 Start: 02-16-2024 End: 02-16-2024 Patient encounter procedure 02/16/2024 11:30 AM EST [facility] [address] [place] [phone] Adelaida Carrion NP [address] [place] [address] [facility] Start: 02-04-2024 Influenza vaccination Influenza Vacc ine (#1) [facility] Comment on above: Postponed from 12/05 (Patient Does Not Have Time) Start: 01-28-2024 End: 01-27-2025 URINARY TRACT INFECTION (HTRX) URINARY TRACT INFECTION (HTRX) Lab Routine Acute cystitis without hematuria Expected: 01/28/2024 (Approximate), Expires: 01/27/2025 [facility] Work Phone: Comment on above: Expected: 01/28/2024 (Approximate), Expires: 01/27/2025 Start: 01-28-2024 End: 01-28-2024 [facility] above: Tobacco dependence ( Primary Dx) Start: 01-04-2024 End: 01-03-2025 Basic metabolic 1998 panel - Serum or Plasma Basic metabolic panel Lab Routine Bilateral lower extremity edema Expected: 01/04/2024 (Approximate), Expires: 01/03/2025 [facility] Work Phone: Comment on above: Expected: 01/04/2024 (Approximate), Expires: 01/03/2025 Start: 01-04-2024 End: 01-04-2024 Patient encounter procedure [facility] Comment on above: Essential (primary) hypertension (CMS/HCC); Allergic rhinitis, unspecified Start: 12-09-2023 End: 12-09-2023 Patient encounter procedure 12/09/2023 10:30 AM EDT Office Visit [facility] [place] [facility] [address] [facility] [address] [place] [phone] Juany Caballero NP [address] [place], [place] [facility] Start: 12-08-2023 End: 12-08-2023 Patient encounter procedure 12/08/2023 3:20 PM EDT Office Visit [facility] [place] [facility] [address] [facility] [place] [phone] Sonam Brown NP [address] [place], [place] [phone] [facility] Start: 09-16-2023 Screening for malign ant neoplasm of breast Mammogram [facility] Start: 08-17-2023 End: 08-17-2023 Patient encounter procedure 08/17/2023 9:20 AM EDT Office Visit [facility] [address] [place] [address] Adelaida Carrion NP [address] [place] [address] [facility] Start: 05-22-2023 End: 05-22-2023 Patient encounter procedure 05/22/2023 8:45 AM EST Office Visit [facility] [address] [place] [address] Ashleigh Hines, PA [address] [place] [address] [facility] Start: 05-18-2023 End: 05-18-2023 Patient encounter procedure 05/18/2023 4:30 PM EST Office Visit [facility] [address] [place] [phone] Adelaida Carrion, BRIANA [address] [place] [phone] Arrived [facility] Comment on above: Arrived Start: 05-18-2023 End: 05-18-2024 XR Hip - left 3 Views XR hip left 2 or 3 views Imaging Routine Left hip pain Expected: 05/18/2023 (Approximate), Expires: 05/18/2024 [facility] Work Phone: Comment on above: Expected: 05/18/2023 (Approximate), Expires: 05/18/2024 Start: 03-23-2023 [facility] Start: 11-20-2022 [facility] Start: 11-18-2022 Referral to clinical physical ther [facility] Start: 11-17-2022 Hospital admission [facility] Start: 11-17-2022 [facility] Start: 12-06-1991 Screening for malign ant neoplasm of cervix HPV/Cotest [facility] Start: 1960 Medicare Annual Well ness (AWV) Medicare Annual Wellness (AWV) [facility] Start: 1960 Screening for malign ant neoplasm of colon [facility] BLOOD CULTURE 1 BLOOD CULTURE 1 Lab Routine 03/02/2024 3:20 AM EST [facility] Patient Education [facility] Work Phone: Patient referral [facility] Work Phone: [facility] Immunizations Immunization Date Immunization Notes Care Provider [facility] 01-28-2024 Influenza, injectabl e, Madin [place] Canine Kidney, preservative free, quadrivalent Adelaida Carrion EMERY GRINDER Work Phone: [facility] 08-17-2023 zoster vaccine recombinant Adelaida Aichholz EMERY GRINDER Work Phone: [facility] 02-13-2023 influenza, injectabl e, quadrivalent, preservative free Adelaida Aichholz EMERY GRINDER Work Phone: [facility] 02-13-2023 SARS-COV-2 (COVID-19 ) vaccine, mRNA, spike protein, LNP, PF, 50 mcg/0.5 mL Adelaida Aichholz EMERY GRINDER Work Phone: [facility] 02-13-2023 influenza virus vaccine, unspecified formulation Adelaida Aichholz EMERY GRINDER Work Phone: [facility] 02-19-2022 diphtheria, tetanus toxoids and pertussis vaccine Adelaida Aichholz EMERY GRINDER Work Phone: [facility] 03-02-2021 Moderna SARS-CoV-2 Vaccination Adelaida Aichholz EMERY GRINDER Work Phone: [facility] 08-24-2020 Moderna SARS-CoV-2 Vaccination Adelaida Aichholz EMERY GRINDER Work Phone: [facility] 07-27-2020 Moderna SARS-CoV-2 Vaccination Adelaida Aichholz EMERY GRINDER Work Phone: [facility] 05-28-2018 influenza, injectabl e, quadrivalent, preservative free Adelaida Aichholz Work Phone: [facility] 2017 pneumococcal conjuga te vaccine, 13 valent Adelaida Aichholz EMERY GRINDER Work Phone: [facility] Payers Date Payer Category Payer Medicare [id number] 2022 Self-pay [id number] 2022 Medicare [id number] 2022 Medicare (Managed Care) [facility] MEDICARE [id number] 2008 Unknown [id number] 1961 Unknown [id number] 2.16.840.1.836459.3.579.2 .647 1961 Unknown [id number] 2.16.840.1.501187.3.579.2 .593 1961 Unknown [id number] 2.16.840.1.294260.3.579.2 .593 1961 Unknown [id number] 2.16.840.1.878743.3.579.2 .593 1961 Unknown [id number] 2.16.840.1.125431.3.579.2 .593 1961 Unknown [id number] 2.16.840.1.526659.3.579.2 .593 1961 Unknown [id number] 2.16.840.1.780791.3.579.2 .593 1961 Unknown [id number] 2.16.840.1.169938.3.579.2 .593 1961 Unknown [id number] 2.16.840.1.223430.3.579.2 .593 1961 Unknown [id number] 2.16.840.1.960513.3.579.2 .593 1961 Unknown [id number] 2.16.840.1.866155.3.579.2 .593 1961 Unknown [id number] 2.16.840.1.756395.3.579.2 .593 1961 Unknown [id number] 2.16.840.1.312387.3.579.2 .593 1961 Unknown [id number] 2.16.840.1.932527.3.579.2 .593 1961 Unknown [id number] 2.16.840.1.789834.3.579.2 .593 1961 Unknown [id number] 2.16.840.1.705877.3.579.2 .593 1961 Unknown [id number] 2.16.840.1.908824.3.579.2 .593 1961 Unknown [id number] 2.16.840.1.011952.3.579.2 .593 1961 Unknown [id number] 2.16.840.1.457742.3.579.2 .593 1961 Unknown [id number] 2.16.840.1.838499.3.579.2 .593 1961 Unknown [id number] 2.16.840.1.093127.3.579.2 .593 1961 Unknown [id number] 2.16.840.1.636469.3.579.2 .593 1961 Unknown [id number] 2.16.840.1.247125.3.579.2 .593 1961 Unknown [id number] 2.16.840.1.006922.3.579.2 .593 1961 Unknown [id number] 2.16.840.1.586504.3.579.2 .593 1961 Unknown [id number] 2.16.840.1.247690.3.579.2 .196 1961 Unknown [id number] 2.16.840.1.256838.3.579.2 .1961 Unknown [id number] 2.16.840.1.595398.3.579.2 .196 1961 Unknown [id number] 2.16.840.1.230835.3.579.2 .1258 1961 Unknown [id number] 2.16.840.1.712442.3.579.2 .1258 1961 Unknown [id number] 2.16.840.1.663779.3.579.2 .1258 1961 Unknown [id number] 2.16.840.1.313441.3.579.2 .1258 1961 Unknown [id number] 2.16.840.1.092649.3.579.2 .1258 1961 Unknown [id number] 2.16.840.1.908729.3.579.2 .1258 1961 Unknown [id number] 2.16.840.1.847145.3.579.2 .1258 1961 Unknown [id number] 2.16.840.1.931064.3.579.2 .1258 1961 Unknown [id number] 2.16.840.1.066416.3.579.2 .1258 1961 Unknown [id number] 2.16.840.1.613963.3.579.2 .1258 1961 Unknown [id number] 2.16.840.1.277769.3.579.2 .1258 1961 Unknown [id number] 2.16.840.1.540691.3.579.2 .1258 1961 Unknown [id number] 2.16.840.1.065221.3.579.2 .1259 1961 Unknown [id number] 2.16.840.1.614859.3.579.2 .9 1961 Unknown [id number] 2.16.840.1.252898.3.579.2 .9 1961 Unknown [id number] 2.16.840.1.007645.3.579.2 .1258 1961 Unknown [id number] 2.16.840.1.484649.3.579.2 .1258 1961 Unknown [id number] 2.16.840.1.166523.3.579.2 .1258 1961 Unknown [id number] 2.16.840.1.123423.3.579.2 .9 1961 Unknown [id number] 2.16.840.1.216878.3.579.2 .1258 1961 Unknown [id number] 2.16.840.1.484850.3.579.2 .9 1959 Medicare [id number] 1959 Unknown [id number] Private Health Insurance [facility] [id number] Unknown [id number] 2.16.840.1.508437.3.579.2 .531 Unknown [id number] 2.16.840.1.785217.3.579.2 .531 Social History Date Type Detail Facility Start: 11-18-2022 End: 10-14-2023 Tobacco smoking status NHIS Ex-smoker (finding) [facility] Start: 1960 Sex Assigned At Female [facility] Start: 03-25-2023 End: 08-16-2023 Sex Assigned At [facility] Start: 04-06-1976 End: 04-06-2016 History of tobacco use Current smoker [facility] Start: 04-06-1976 End: 04-06-2016 History of tobacco use Cigarette Smoker [facility] Start: 02-09-2023 End: 08-16-2023 Cigarettes smoked current (pack per day) - Reported 1 [facility] Start: 02-09-2023 End: 10-14-2023 Tobacco use and exposure Smokeless tobacco non-user [facility] Start: 05-18-2023 End: 05-12-2024 Alcohol intake Lifetime non-drinker (finding) [facility] [...] Facility 11-20-2022 Functional status Patient at [facility] Work Phone: Mental Status Date Assessment Result Facility 11-20-2022 Cognitive function Cognitive Sta tus Patient is Progressing Toward Baseline [facility] Work Phone: Clinical Notes 10-03-2021 to 05-12-2024 VALERIE LU - 05/12/2024 10:00 AM ESTLisa Aichholz, EMERY GRINDER - 05/12/2024 10:00 AM ESTLisa Aichholz, EMERY GRINDER - 05/12/2024 6:42 AM ESTLisa Aichholz, EMERY GRINDER - 05/12/2024 6:41 AM ESTPatient Instructions Note Date & Type Note Facility 05-12-2024 History of Present illness Narrative A1c 4.9 Images from the original note were not included. Michelle Be is a 63 y.o. female presents with chief complaint of No chief complaint on file. HPI: Hypertension This is a chronic problem. The problem is unchanged. The problem is controlled. Associated symptoms include anxiety. Pertinent negatives include no chest pain, headaches, palpitations, peripheral edema or shortness of breath. There are no associated agents to hypertension. Risk factors for coronary artery disease include obesity and sedentary lifestyle. Past treatments include calcium channel blockers, angiotensin blockers and beta blockers. The current treatment provides significant improvement. There are no compliance problems. Hypertensive end-organ damage includes CVA. There is no history of CAD/MT, heart failure or PVD. GERD She reports no abdominal pain, no chest pain, no coughing, no dysphagia, no heartburn, no nausea, no sore throat or no wheezing. This is a chronic problem. The current episode started more than 1 year ago. The problem occurs occasionally. The problem has been unchanged. Nothing aggravates the symptoms. Risk factors include caffeine use, lack of exercise and obesity. She has tried a PPI for the symptoms. The treatment provided significant relief. SUBJECTIVE: MEDICATIONS: Current Outpatient Medications Medication Instructions amLODIPine (NORVASC) 10 mg, Oral, Daily biotin 5 MG tablet Pt taking OTC ([employer]) Calcium Citrate-Vitamin D (CITRACAL + D PO) Pt taking OTC ([employer]) carvedilol (COREG) 12.5 mg, Oral, 2 times daily with meals cetirizine (ZYRTEC) 10 mg, Oral, Daily clonazePAM (KLONOPIN) 0.5 mg, Oral, 2 times daily, Due 04/13/24 DULoxetine (CYMBALTA) 60 mg, 2 times daily fluticasone (Flonase) 50 MCG/ACT nasal spray 2 sprays, Each Nostril, Daily gabapentin (NEURONTIN) 300 mg, Oral, 2 times daily, Due now lacosamide (VIMPAT) 50 mg, Oral, 2 times daily, Due now losartan (COZAAR) 100 mg, Oral, Daily Magnesium 400 MG capsule Pt taking OTC([employer]) Melatonin 12 MG tablet 1 tablet, Nightly Multiple Vitamins-Minerals (BARIATRIC MULTIVITAMINS/IRON PO) Pt taking OTC ([employer]) nystatin (Mycostatin) 257824 UNIT/GM powder 1 application , 2 times [...] abdominal pain, blood in stool, constipation, diarrhea, dysphagia, heartburn, nausea and vomiting. Genitourinary: Negative for difficulty urinating, dysuria and frequency. Musculoskeletal: Negative for back pain, joint swelling and myalgias. Skin: Negative for rash and wound. Neurological: Negative for dizziness, tremors, seizures, syncope and headaches. Psychiatric/Behavioral: Negative for behavioral problems, self-injury and suicidal ideas. The patient is nervous/anxious. Hematological: Does not bruise/bleed easily. Endocrine: Negative for polydipsia, polyphagia and polyuria. Allergic/Immunologic: Negative for environmental allergies and food allergies. PAST MEDICAL HISTORY Past Medical History: Diagnosis Date Abnormal mammogram of left breast Achilles tendinitis, right leg Acute gout of right foot, unspecified cause Allergic rhinitis 05/18/2023 Anemia Anxiety 05/18/2023 Bipolar disorder with severe depression ([facility]) 05/18/2023 Brain lesion Brain vascular malformation Chronic pain disorder Closed fracture of patella 02/04/2018 Colon polyps Constipation Degenerative cervical disc Degenerative lumbar disc Depression ([facility]) 05/18/2023 Diastolic dysfunction Dizziness 05/18/2023 Dysphagia Fibromyalgia Fibromyalgia Gastrocnemius equinus GERD (gastroesophageal reflux disease) Heart murmur Hematoma of right breast Hemiparesis ([facility]) Hemiparesis, right ([facility]) Hemorrhoid int/external hemorrhoids Hiatal hernia Iron deficiency Left foot pain 03/25/2023 Lower extremity edema Mood disorder ([facility]) mixed mood disorder OSMANY (obstructive sleep apnea) Osteoporosis ([facility]) Overactive bladder Pre-diabetes Primary hypertension ([facility]) 03/25/2023 PTSD (post-traumatic stress disorder) ([facility]) Restless leg Right knee pain Right sided weakness S/P bariatric surgery Shingles Slurred speech Stroke ([facility]) 2018 Tenosynovitis, de Quervain Thoracic back pain, [...] in her mother. OBJECTIVE: Visit Vitals BP 118/78 (BP Location: Left arm, Patient Position: Sitting, BP Cuff Size: Adult) Pulse 80 Temp 98.5 F (Temporal) Resp 20 Ht 5' 4 Wt 286 lb 6.4 oz SpO2 98% BMI 49.16 kg/m Smoking Status Former BSA 2.42 m Physical Exam Vitals and nursing note reviewed. Constitutional: General: She is not in acute distress. Appearance: Normal appearance. She is obese. She is not ill-appearing or diaphoretic. HENT: Head: Normocephalic and atraumatic. Right Ear: External ear normal. Left Ear: External ear normal. Nose: Nose normal. Mouth/Throat: Mouth: Mucous membranes are moist. Eyes: Extraocular Movements: Extraocular movements intact. Conjunctiva/sclera: Conjunctivae normal. Cardiovascular: Rate and Rhythm: Normal rate and regular rhythm. Pulses: Normal pulses. Heart sounds: Normal heart sounds. Pulmonary: Effort: Pulmonary effort is normal. No respiratory distress. Breath sounds: Normal breath sounds. No wheezing or rales. Abdominal: General: Bowel sounds are normal. There is no distension. Palpations: Abdomen is soft. There is no mass. Tenderness: There is no abdominal tenderness. Musculoskeletal: Cervical back: Normal range of motion and neck supple. Lymphadenopathy: Cervical: No cervical adenopathy. Skin: General: Skin is warm and dry. Capillary Refill: Capillary refill takes 2 to 3 seconds. Findings: No rash. Neurological: General: No focal deficit present. Mental Status: She is alert and oriented to person, place, and time. Psychiatric: Mood and Affect: Mood normal. Behavior: Behavior normal. Thought Content: Thought content normal. Judgment: Judgment normal. ASSESSMENT AND PLAN: Follow up in about 3 months (around 08/09/2024) for Recheck. Problem List Items Addressed This Visit Morbid (severe) obesity due to excess calories (CMS/HCC) Discussed with patient their BMI (actual, verses recommended). We have also discussed lifestyle modifications: attempts to perform physical activity as chronic conditions allow, also to monitor dietary intake: increasing protein/fruits/veggies and lowering carb intake (unless contraindicated). Limit sodas, juices, and sugary drinks. Has had bariatric surgeries in the past OSMANY (obstructive sleep apnea) You have a diagnosis of obstructive sleep apnea. It is recommended that you wear your PAP device any time while in bed sleeping. Not using the PAP device can increase your risk of elevated/uncontrolled high blood pressure, atrial fibrillation, heart attack, stroke, or sudden . Compliance with PAP: yes How many hours of use per night: 5-6 hours Do you feel more refreshed in the morning: yes Company that supplies your machine and tubing/filters etc: [employer] Doctor that manages your OSMANY: Daniela Hemiparesis, right ([facility]) Stable with this from prior stroke GERD (gastroesophageal reflux disease) Recommendations: freq small meals, nothing to eat or drink at least 2 hours prior to bed, limit caffeine, alcohol, as well as spicy foods Meds to limit or avoid if possible: NSAIDS Elevate HOB if possible Current meds: omeprazole Metabolic encephalopathy Continue with neurology I did review her neuropsych notes Bilateral lower extremity edema Relevant Medications spironolactone (Aldactone) 50 MG tablet Primary hypertension ([facility]) - Primary Please check blood pressure daily and record DASH diet Limit caffeine Take medication as directed Contact office if chest pain, pressure, dizziness, shortness of breath, swelling legs Recommend slow position changes Current meds: amlodipine, losartan Chronic kidney disease, stage 3a (HCC) ([facility]) Monitor labs at minimum every year Body mass index (BMI) 45.0-49.9, adult ([facility]) Other Visit Diagnoses Essential (primary) hypertension ([facility]) Relevant Medications amLODIPine (Norvasc) 10 MG tablet carvedilol (Coreg) 12.5 MG tablet losartan (Cozaar) 100 MG tablet Allergic rhinitis, unspecified Relevant Medications cetirizine (ZyrTEC) 10 MG tablet fluticasone (Flonase) 50 MCG/ACT nasal spray Gastro-esophageal reflux disease without esophagitis Relevant Medications omeprazole (PriLOSEC) [address] capsule Associated Problem(s): Metabolic encephalopathy Continue with neurology I did review her neuropsych notes Associated Problem(s): Morbid (severe) obesity due to excess calories (CMS/HCC) Discussed with patient their BMI (actual, verses recommended). We have also discussed lifestyle modifications: attempts to perform physical activity as chronic conditions allow, also to monitor dietary intake: increasing protein/fruits/veggies and lowering carb intake (unless contraindicated). Limit sodas, juices, and sugary drinks. Has had bariatric surgeries in the past Associated Problem(s): Chronic kidney disease, stage 3a (HCC) (CMS/HCC) Monitor labs at minimum every year Associated Problem(s): GERD (gastroesophageal reflux disease) Recommendations: freq small meals, nothing to eat or drink at least 2 hours prior to bed, limit caffeine, alcohol, as well as spicy foods Meds to limit or avoid if possible: NSAIDS Elevate HOB if possible Current meds: omeprazole Associated Problem(s): Primary hypertension (CMS/HCC) Please check blood pressure daily and record DASH diet Limit caffeine Take medication as directed Contact office if chest pain, pressure, dizziness, shortness of breath, swelling legs Recommend slow position changes Current meds: amlodipine, losartan Associated Problem(s): OSMANY (obstructive sleep apnea) You have a diagnosis of obstructive sleep apnea. It is recommended that you wear your PAP device any time while in bed sleeping. Not using the PAP device can increase your risk of elevated/uncontrolled high blood pressure, atrial fibrillation, heart attack, stroke, or sudden . Compliance with PAP: yes How many hours of use per night: 5-6 hours Do you feel more refreshed in the morning: yes Company that supplies your machine and tubing/filters etc: [facility] Doctor that manages your OSMANY: Daniela Associated Problem(s): Hemiparesis, right (CMS/HCC) Stable with this from prior stroke documented in this encounter [facility] 05-12-2024 Instructions Adelaida Carrion NP - 05/12/2024 10:00 AM EST No changes in meds documented in this encounter [facility] 04-12-2024 Telephone encounter Note 03/10/2024 Continue Gabapentin 300 mg BID for RLS. Continue clonazepam 0.5mg PO BID for RLS. This was decreased during recent hospitalization Continue Vimpat 50mg PO BID for seizure prevention [facility] 04-12-2024 Miscellaneous Notes 03/10/2024 Continue Gabapentin 300 mg BID for RLS. Continue clonazepam 0.5mg PO BID for RLS. This was decreased during recent hospitalization Continue Vimpat 50mg PO BID for seizure prevention documented in this encounter [facility] 04-07-2024 History of Present illness Narrative Images [...] performance and score on it. Admitted to [facility] from the [facility] on 08/24/2023 with acute respiratory failure and confusion thought to be secondary to metabolic encephalopathy. LTME in August 2023 negative. Recently evaluated at [facility] on 03/02/2024 for severe encephalopathy. Brain MRI [...] any history of alcohol/substance abuse. Reformed smoker. [place] language [place]. Reported relocating from [place] to [place] in 2011. Completed a bachelor's degree. 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 Currently on disability. Resides with of 26 years along with her son, grandson, and 2 dogs. Has 2 children from a prior relationship. MEDICAL HISTORY/MEDICATION: MEDICATIONS: Current Outpatient Medications Medication Instructions amLODIPine (NORVASC) 10 mg, Oral, Daily biotin 5 MG tablet [facility] Calcium Citrate-Vitamin D (CITRACAL + D PO) Pt taking OTC ([employer]) carvedilol (COREG) 12.5 mg, Oral, 2 times [...] Daily Magnesium 400 MG capsule Pt taking OTC([employer]) Melatonin 12 MG tablet 1 tablet, Oral, Nightly Multiple Vitamins-Minerals (BARIATRIC MULTIVITAMINS/IRON PO) Pt taking OTC ([employer]) nystatin (Mycostatin) 590775 UNIT/GM powder 1 application , 2 times [...] design >16th %ile. Motor/Speed of Processing: Right-handed. Security Assurance Specialist strength 16th %ile with right-hand, 38th %ile [...] Learning of a word list 79th %ile (6-16-99-12-12), delayed recall 93rd %ile. Recognition discriminability 93rd [...] Please contact me with any questions at [phone]. documented in this encounter [facility] 03-16-2024 History of Present illness Narrative Associated Problem(s): Right bundle branch block (RBBB) determined by electrocardiography At this point I will look at her past EKG's, She has had ECHO in past No symptoms, at this time I do not think that further testing is needed Pt is having a memory test done on apr 07 in [place] Pt is anxious and afraid-pt father had dementia Spironolactone pt is asking for 50mg instead of 25mg Images from the original note were not included. Michelle Be is a 63 y.o. female presents with chief complaint of Anxiety HPI: Here for hospital follow up: AMS She was evaluated at [facility], was seen by Neurology reviewed notes from [...] biotin 5 MG tablet Pt taking OTC ([employer]) Calcium Citrate-Vitamin D (CITRACAL + D PO) Pt taking OTC ([employer]) carvedilol (COREG) 12.5 mg, Oral, 2 times [...] Daily Magnesium 400 MG capsule Pt taking OTC([employer]) Melatonin 12 MG tablet 1 tablet, Oral, Nightly Multiple Vitamins-Minerals (BARIATRIC MULTIVITAMINS/IRON PO) Pt taking OTC ([employer]) nystatin (Mycostatin) 696501 UNIT/GM powder 1 application , 2 times [...] Anxiety 05/18/2023 Bipolar disorder with severe depression ([facility]) 05/18/2023 Brain lesion Brain vascular malformation Chronic pain disorder Closed fracture of patella 02/04/2018 Colon polyps Constipation Degenerative cervical disc Degenerative lumbar disc Depression ([facility]) 05/18/2023 Diastolic dysfunction Dizziness 05/18/2023 Dysphagia Fibromyalgia Fibromyalgia Gastrocnemius equinus GERD (gastroesophageal reflux disease) Heart murmur Hematoma of right breast Hemiparesis ([facility]) Hemiparesis, right ([facility]) Hemorrhoid int/external hemorrhoids Hiatal hernia Iron deficiency Left foot pain 03/25/2023 Lower extremity edema Mood disorder ([facility]) mixed mood disorder OSMANY (obstructive sleep apnea) Osteoporosis ([facility]) Overactive bladder Pre-diabetes Primary hypertension ([facility]) 03/25/2023 PTSD (post-traumatic stress disorder) ([facility]) Restless leg Right knee pain Right sided weakness S/P bariatric surgery Shingles Slurred speech Stroke ([facility]) 2018 Tenosynovitis, de Quervain Thoracic back pain, [...] to have evaluation documented in this encounter [facility] 03-16-2024 Instructions Adelaida Carrion NP - 03/16/2024 10:00 AM EST Spironolactone: I discontinued the 25mg script for this, sent a new script to [facility], for a 50mg pill, you will take 1 pill daily Memory testing in Apr 2024 Follow up with me in early May, sooner if needed documented in this encounter [facility] 03-16-2024 Telephone encounter Note Katerina, sent to [facility]. [facility] 03-16-2024 Miscellaneous Notes Yep, sent to [facility]. Patient calls and states that hospital lowered her requip to 2 mg at bed time. Okay to send as new dosage? documented in this encounter [facility] 03-15-2024 Telephone encounter Note Patient calls and states that hospital lowered her requip to 2 mg at bed time. Okay to send as new dosage? [facility] 03-14-2024 History of Present illness Narrative Images [...] small left thalamic stroke in 2016. MoCA . Patient accurately recalled this screening measure as well as her overall performance and score on it. Admitted to [facility] from the [facility] on 08/24/2023 with acute respiratory failure and confusion thought to be secondary to metabolic encephalopathy. Previous LTME in August 2023 negative. Recently evaluated at [facility] on 03/02/2024 for severe encephalopathy. Brain MRI [...] any history of alcohol/substance abuse. Reformed smoker. [place] language [place]. Reported relocating from [place] to [place] in 2011. Completed a bachelors degree. Previously [...] mood disorder OSMANY (obstructive sleep apnea) Osteoporosis (CMS/HCC) Overactive bladder Pre-diabetes Primary hypertension (CMS/HCC) 03/25/2023 PTSD (post-traumatic stress disorder) ([facility]) Restless leg Right knee pain Right sided weakness S/P bariatric surgery Shingles Slurred speech Stroke ([facility]) 2018 Tenosynovitis, de Quervain Thoracic back pain, unspecified back pain laterality, unspecified chronicity Tobacco dependence Vertigo, benign paroxysmal Yeast infection of the skin 05/18/2023 MEDICATIONS: Current Outpatient Medications Medication Instructions amLODIPine (NORVASC) 10 mg, Oral, Daily biotin 5 MG tablet Pt taking OTC ([employer]) Calcium Citrate-Vitamin D (CITRACAL + D PO) Pt taking OTC ([employer]) carvedilol (COREG) 12.5 mg, Oral, 2 times [...] Daily Magnesium 400 MG capsule Pt taking OTC([employer]) Melatonin 12 MG tablet 1 tablet, Oral, Nightly Multiple Vitamins-Minerals (BARIATRIC MULTIVITAMINS/IRON PO) Pt taking OTC ([employer]) nystatin (Mycostatin) 417382 UNIT/GM powder 1 application , Topical, 2 [...] Please contact me with any questions at [phone]. documented in this encounter [facility] 02-16-2024 History of Present illness Narrative Pt [...] biotin 5 MG tablet Pt taking OTC ([employer]) Calcium Citrate-Vitamin D (CITRACAL + D PO) Pt taking OTC ([employer]) carvedilol (COREG) 12.5 mg, Oral, 2 times [...] Magnesium 400 MG capsule Pt taking OTC([facility]) Melatonin 12 MG tablet 1 tablet, Oral, Nightly Multiple Vitamins-Minerals (BARIATRIC MULTIVITAMINS/IRON PO) [facility] nystatin (Mycostatin) 604738 UNIT/GM powder 1 application , Topical, 2 [...] Anxiety 05/18/2023 Bipolar disorder with severe depression ([facility]) 05/18/2023 Brain lesion Brain vascular malformation Chronic pain disorder Closed fracture of patella 02/04/2018 Colon polyps Constipation Degenerative cervical disc Degenerative lumbar disc Depression ([facility]) 05/18/2023 Diastolic dysfunction Dizziness 05/18/2023 Dysphagia Fibromyalgia Fibromyalgia Gastrocnemius equinus GERD (gastroesophageal reflux disease) Heart murmur Hematoma of right breast Hemiparesis ([facility]) Hemiparesis, right ([facility]) Hemorrhoid int/external hemorrhoids Hiatal hernia Iron deficiency Left foot pain 03/25/2023 Lower extremity edema Mood disorder ([facility]) mixed mood disorder OSMANY (obstructive sleep apnea) Osteoporosis ([facility]) Overactive bladder Pre-diabetes Primary hypertension ([facility]) 03/25/2023 PTSD (post-traumatic stress disorder) ([facility]) Restless leg Right knee pain Right sided weakness S/P bariatric surgery Shingles Slurred speech Stroke ([facility]) 2018 Tenosynovitis, de Quervain Thoracic back pain, [...] nursing note reviewed. Exam conducted with a director hair present. Constitutional: General: She is not in [...] chronic conditions allow documented in this encounter [facility] 01-28-2024 History of Present illness Narrative Associated [...] ER fu for UTI and dehydration. See [facility] for HPI Was sent home on Bactrim. Feels completely fine now, no fever, chills, malodorous urine, no constipation diarrhea or abd pain SUBJECTIVE: MEDICATIONS: Current Outpatient Medications Medication Instructions amLODIPine (NORVASC) 10 mg, Oral, Daily biotin 5 MG tablet Pt taking OTC ([employer]) Calcium Citrate-Vitamin D (CITRACAL + D PO) Pt taking OTC ([employer]) carvedilol (COREG) 12.5 mg, Oral, 2 times [...] Daily Magnesium 400 MG capsule Pt taking OTC([employer]) Melatonin 12 MG tablet 1 tablet, Oral, Nightly Multiple Vitamins-Minerals (BARIATRIC MULTIVITAMINS/IRON PO) Pt taking OTC ([employer]) nystatin (Mycostatin) 622244 UNIT/GM powder 1 application , Topical, 2 [...] pain 03/25/2023 Lower extremity edema Mood disorder ([facility]) mixed mood disorder OSMANY (obstructive sleep apnea) Osteoporosis ([facility]) Overactive bladder Pre-diabetes Primary hypertension ([facility]) 03/25/2023 PTSD (post-traumatic stress disorder) ([facility]) Restless leg Right knee pain Right sided weakness S/P bariatric surgery Shingles Slurred speech Stroke ([facility]) 2018 Tenosynovitis, de Quervain Thoracic back pain, [...] Relevant Orders Flu vaccine, MDCK, quadrivalent, PF ([id number]) (Flucelvax single dose syringe) Associated Problem(s): Tobacco [...] start this process documented in this encounter [facility] 01-04-2024 History of Present illness Narrative Associated [...] biotin 5 MG tablet Pt taking OTC ([employer]) Calcium Citrate-Vitamin D (CITRACAL + D PO) Pt taking OTC ([employer]) carvedilol (COREG) 12.5 mg, Oral, 2 times [...] Daily Magnesium 400 MG capsule Pt taking OTC([employer]) Melatonin 12 MG tablet 1 tablet, Oral, Nightly Multiple Vitamins-Minerals (BARIATRIC MULTIVITAMINS/IRON PO) Pt taking OTC ([employer]) nystatin (Mycostatin) 679108 UNIT/GM powder 1 application , Topical, 2 [...] Anxiety 05/18/2023 Bipolar disorder with severe depression ([facility]) 05/18/2023 Brain lesion Brain vascular malformation Chronic pain disorder Closed fracture of patella 02/04/2018 Colon polyps Constipation Degenerative cervical disc Degenerative lumbar disc Depression ([facility]) 05/18/2023 Diastolic dysfunction Dizziness 05/18/2023 Dysphagia Fibromyalgia Fibromyalgia Gastrocnemius equinus GERD (gastroesophageal reflux disease) Heart murmur Hematoma of right breast Hemiparesis ([facility]) Hemiparesis, right ([facility]) Hemorrhoid int/external hemorrhoids Hiatal hernia Iron deficiency Left foot pain 03/25/2023 Lower extremity edema Mood disorder ([facility]) mixed mood disorder OSMANY (obstructive sleep apnea) Osteoporosis ([facility]) Overactive bladder Pre-diabetes Primary hypertension ([facility]) 03/25/2023 PTSD (post-traumatic stress disorder) ([facility]) Restless leg Right knee pain Right sided weakness S/P bariatric surgery Shingles Slurred speech Stroke ([facility]) 2018 Tenosynovitis, de Quervain Thoracic back pain, [...] MCG/ACT nasal spray documented in this encounter [facility] 12-09-2023 History of Present illness Narrative Images [...] machine. She is normally seen at the [facility] and was last seen on [...] pain 03/25/2023 Lower extremity edema Mood disorder ([facility]) mixed mood disorder OSMANY (obstructive sleep apnea) Osteoporosis ([facility]) Overactive bladder Pre-diabetes Primary hypertension ([facility]) 03/25/2023 PTSD (post-traumatic stress disorder) ([facility]) Restless leg Right knee pain Right sided weakness S/P bariatric surgery Shingles Slurred speech Stroke ([facility]) 2018 Tenosynovitis, de Quervain Thoracic back pain, [...] melatonin. She was last seen in the [facility] on June 24, 2023. Since [...] for short term insomnia and not for penitentiary insomnia. She is compliant on her download [...] clinic: one year documented in this encounter [facility] 12-08-2023 History of Present illness Narrative Patient [...] Heart murmur Hematoma of right breast Hemiparesis ([facility]) Hemiparesis, right ([facility]) Hemorrhoid int/external hemorrhoids Hiatal hernia Iron deficiency Left foot pain 03/25/2023 Lower extremity edema Mood disorder ([facility]) mixed mood disorder OSMANY (obstructive sleep apnea) Osteoporosis ([facility]) Overactive bladder Pre-diabetes Primary hypertension ([facility]) 03/25/2023 PTSD (post-traumatic stress disorder) ([facility]) Restless leg Right knee pain Right sided weakness S/P bariatric surgery Shingles Slurred speech Stroke ([facility]) 2018 Tenosynovitis, de Quervain Thoracic back pain, [...] Review Audit Reviewed by Festus Baron MA (Supervisor [employer]) on 12/08/23 at 1525 Medication Order Taking? Sig Documenting Provider Last Dose Status amLODIPine (Norvasc) 10 MG tablet [id number] Take 1 tablet (10 mg) by mouth Daily Adelaida Crarion NP Active biotin 5 MG tablet [id number] Pt taking OTC ([employer]) Historical Provider, Active Calcium Citrate-Vitamin D (CITRACAL + D PO) [id number] Pt taking OTC ([employer]) Historical Provider, Active Cariprazine HCl (Vraylar) 4.5 MG capsule [id number] Take 4.5 mg by mouth Daily Active carvedilol (Coreg) 12.5 MG tablet [id number] Take 1 tablet (12.5 mg) by mouth in the morning and 1 tablet (12.5 mg) in the evening. Take with meals. Adelaida Carrion NP Active cetirizine (ZyrTEC) 10 MG tablet [id number] Take 1 tablet (10 mg) by mouth Daily Adelaida Carrion NP Active clonazePAM (KlonoPIN) 1 MG tablet [id number] Take 1 tablet (1 mg) by mouth 2 (two) times a day as needed for anxiety Do not start before October 16, 2023. Sonam Brown NP 11/15/23 235 DULoxetine (Cymbalta) [address] capsule [id number] Take 60 mg by mouth in the morning and 60 mg before bedtime. Do not crush or chew.. Active fluconazole (Diflucan) 150 MG tablet [id number] 1 pill every 3 days for a total of 3 doses Adelaida Carrion NP Active fluticasone (Flonase) 50 MCG/ACT nasal spray [id number] Administer 2 sprays into each nostril Daily Adelaida Carrion NP 11/04/23 235 gabapentin (Neurontin) 300 MG capsule [id number] Take 1 capsule (300 mg) by mouth in the morning and 1 capsule (300 mg) before bedtime. Sonam Brown NP Active losartan (Cozaar) 100 MG tablet [id number] Take 1 tablet (100 mg) by mouth Daily Adelaida Carrion NP Active Magnesium 400 MG capsule [id number] Pt taking OTC([employer]) Historical ProviderMD Active Melatonin 12 MG tablet [id number] Take 1 tablet by mouth at bedtime Active Multiple Vitamins-Minerals (BARIATRIC MULTIVITAMINS/IRON PO) [id number] Pt taking OTC ([employer]) Historical ProviderMD Active nystatin (Mycostatin) 863078 UNIT/GM powder [id number] Apply 1 application topically in the morning and 1 application before bedtime. Adelaida Carrion NP Active omeprazole (PriLOSEC) [address] capsule [id number] Take 1 capsule (20 mg) by mouth in the morning. Take before meals. Adelaida Carrion NP Active rOPINIRole (Requip) 4 MG tablet [id number] Take 1 tablet (4 mg) by mouth at bedtime Sonam Brown NP Active spironolactone (Aldactone) 25 MG tablet [id number] Take 2 tablets (50 mg) by mouth Daily Adelaida Carrion NP Active tiZANidine (Zanaflex) 2 MG tablet [id number] Take 2 mg by mouth every 8 (eight) hours Adelaida Carrion NP Active traZODone (Desyrel) 150 MG tablet [id number] Take 150 mg by mouth at bedtime Active HPI AMS -Patient was admitted to [facility] from the [facility] on 08/24/2023 with acute respiratory failure and confusion thought to be secondary to metabolic encephalopathy. Patient denies any new hospital stays. -She was seen by Neurology who thought she had a toxic encephalopathy secondary to medication overuse. -She was monitored on LTME which did not show any evidence of seizures. -After she was discharged she had a [facility]23 and she was discharged [...] ankle and great toe bilaterally. Coordination Right: Vruxre-tm-llow normal. Rapid alternating movement normal.Left: Djosjm-rs-rhkt normal. Rapid alternating movement normal. Gait Casual gait is normal including stance, stride, and arm swing. Motor Examination RUE Strength deltoid, biceps, triceps, wrist extensors, wrist extensors, wrist flexor, health insurance agent strength 5/5. LUE Strength deltoid, biceps, triceps, wrist extensors, wrist extensors, wrist flexor, health insurance agent strength 5/5. RLE Strength illopsoas, quadriceps, tibialis [...] not all inclusive. Patient was admitted to [facility] from the [facility] on 08/24/2023 with acute respiratory failure and [...] of the brain in July 2019 showed qjyr-yu-qjtebxyt white matter changes with the largest area [...] make further recommendations documented in this encounter [facility] 05-18-2023 History of Present illness Narrative Associated [...] (BARIATRIC MULTIVITAMINS/IRON PO) Bariatric Multivitamins/Iron nystatin (Mycostatin) 448344 UNIT/GM powder 1 application , Topical, 2 [...] Anxiety 05/18/2023 Bipolar disorder with severe depression ([facility]) 05/18/2023 Brain vascular malformation Chronic pain disorder Colon polyps Constipation Degenerative cervical disc Degenerative lumbar disc Depression ([facility]) 05/18/2023 Diastolic dysfunction Dizziness 05/18/2023 Dysphagia Fibromyalgia Gastrocnemius equinus GERD (gastroesophageal reflux disease) Heart murmur Hematoma of right breast Hemiparesis, right ([facility]) Hemorrhoid int/external hemorrhoids Hiatal hernia Iron deficiency Left foot pain 03/25/2023 Lower extremity edema Mood disorder ([facility]) mixed mood disorder OSMANY (obstructive sleep apnea) Osteoporosis ([facility]) Overactive bladder Pre-diabetes Primary hypertension ([facility]) 03/25/2023 PTSD (post-traumatic stress disorder) ([facility]) Restless leg Right knee pain Right sided weakness S/P bariatric surgery Shingles Slurred speech Stroke ([facility]) 2018 Tenosynovitis, de Quervain Thoracic back pain, [...] goal no changes in meds Morbid obesity ([facility]) OSMANY (obstructive sleep apnea) - Primary Compliant with PAP Chronic pain disorder GERD (gastroesophageal reflux disease) stable Overactive bladder Lower extremity edema Pre-diabetes Mood disorder ([facility]) Continue with Psych for management Tobacco dependence Yeast infection of the skin Encounter for annual wellness visit (AWV) in Medicare patient Reviewed Ht/Wt/BMI Recommend eye exam yearly Recommend dental exams twice a year Balance work/leisure activities Exercises is recommended most days of the week (appropriate as chronic conditions allow) Follow up yearly and prn documented in this encounter [facility] 03-23-2023 Procedure note [facility] 12-19-2022 Evaluation note Encounter Date Diagnosis Assessment Notes Dec, Skin candidiasis (ICD-10 - B37.2) Drink plenty fluids, get plenty of rest. Continue home medications as prescribed. Take the Diflucan as prescribed until gone. Follow-up with your family physician if no improvement in 2 to 3 days [employer] Other 08-17-2023 Discharge summary Author Eduardo bautista [facility] November 20, 2022 6:38am Note Date/Time November 20, 2022 6: 38am [facility] [address] [place] [address] Discharge Summary Signed Patient: Michelle Be MR#: [id number] : 1960 Acct:[id number] Age/Sex: 61 / F Adm Date: 3 Loc: Room: [address] [place] [address]: Gaudencio Monk MD Copies to: [...] at that time.? She reports moving to [place] from [place] in 2011 and was then diagnosed with bipolar disorder at [facility] in [place], where she still follows with a therapist.? Shereports that she has been with 7 therapists in the last 9 years and is currentlycompleting EMDR with her current therapist. 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 (insert date/time here) Intake: (Insert date/time here) Please bring a copy of your photo ID, insurance card, and proof of household income.? Psychiatry: (Insert date/time here) Group: (Insert date/time here ) ) Adelaida Carrion [Primary Care Provider] - (Please contact for any medical needs) Documented By: Eduardo Monk MD 3 1852 Signed By: <Electronically signed by Eduardo Monk MD> 11/20/22 0638 [facility] Work Phone: 1(584) 939-476808-16-2023 Progress note Author Eduardo bautista [facility] November 19, 2022 6:25am Note Date/Time November 19, 2022 6: 25am [facility] [address] [place] [address] Psychiatry Progress Note Signed Patient: Michelle Be MR#: [id number] : 1960 Acct:[id number] Age/Sex: 61 / F Adm Date: 3 Loc: Room: [address] [place] [address] Type : ADM IN Attending Dr: Gaudencio [...] signed by Eduardo Monk MD> 11/19/22 0625 [facility] Work Phone: 1(667) 145-134308-15-2023 Progress note Author Eduardo bautista [facility] November 18, 2022 11:01am Note Date/Time November 18, 2022 10 :11am [facility] [address] [place] [address] Psychiatry Progress Note Signed Patient: Michelle Be MR#: [id number] : 1960 Acct:[id number] Age/Sex: 61 / F Adm Date: 3 Loc: Room: [address] [place] [address] Type : ADM IN Attending Dr: Gaudencio [...] by requesting a schedule 2 referring to [place] for pain management specifically every 4-6 hours [...] MD DA Rangel> 11/18/22 1011 [facility] Work Phone: 1(970) 891-627108-14-2023 History and physical note Author Eduardo bautista [facility] November 17, 2022 12:48pm Note Date/Time November 17, 2022 12 :48pm [facility] [address] [place] [address] Psychiatry H&P Signed Patient: Michelle Be MR#: [id number] : 1960 Acct:[id number] Age/Sex: 61 / F Adm Date: 3 Loc: Room: [address] [place] [address] Type: ADM IN Attending Dr: Gaudencio Monk MD Copies to: MD Adeliada Álvarez NP-Keiry~ Date of Service: 11/17/2022 HPI [...] at that time. She reports moving to [place] from [place] in 2011 and was then diagnosed with bipolar disorder at [facility] in [place], where she still follows with a therapist. Shereports that she has been with 7 therapists in the last 9 years and is currentlycompleting EMDR with her current therapist. Past hospitalizations: Her most recent hospitalization was 5 years ago [facility] in [place] for the same feeling she is experiencing [...] worked since 2010 due to her fibromyalgia. [facility]. Relationships: Reports having people [...] 1029 Signed By: <Electronically signed by Eduardo oMnk MD> 11/17/22 1248 [facility] Work Phone: [phone]) 244-108203-23-2023 NoteCONSULTATION CONSULTATION DATE: 06/26/2022 To: Nurse Sheyla [...] facet joint injection under fluoroscopic guidance.[facility] [id number] NotePROCEDURE: XR SHOULDER RT 2V or > [...] Electronically authenticated by: KINGSLEY CLEMENTS Date: 2022-05-09 09:21[facility]01-23-2023 NotePROCEDURE: XR WRIST LT MIN 3 V [...] Electronically authenticated by: KINGSLEY CLEMENTS Date: 2022-04-28 13:31[facility]12-29-2022 NoteCONSULTATION CONSULTATION DATE: 04/03/2022 HISTORY OF PRESENT [...] in three months, unless otherwise indicated.[facility] [id number] NoteCONSULTATION CONSULTATION DATE: 01/02/2022 This is a [...] [facility] in [place] for the compounded cream. She needs a [...] three months' time unless otherwise indicated.[facility] [id number] NotePROCEDURE: XR ANKLE RT MIN 3 VIEWS, [...] Electronically authenticated by: KINGSLEY CLEMENTS Date: 2022-01-01 13:11[facility]09-28-2022 NotePROCEDURE: XR ANKLE RT MIN 3 VIEWS, [...] Electronically authenticated by: KINGSLEY CLEMENTS Date: 2022-01-01 13:11[facility]08-18-2022 NotePROCEDURE: XR FOOT RT MIN 3 VIEWS HISTORY: Pain in right foot , chronic COMPARISON: XR foot right 2020 FINDINGS: BONES:No fracture, dislocation, bone lesion. Small calcaneal degenerative enthesophytes. SOFT TISSUES:No visible soft tissue swelling. EFFUSION:None visible. OTHER: Negative. IMPRESSION: 1. No acute bone abnormality or significant degenerative joint disease. Electronically authenticated by: KINGSLEY CLEMENTS Date: 2021-11-21 16:13[facility]06-30-2022 NoteCONSULTATION CONSULTATION DATE: 10/03/2021 This is a [...] patient agrees with the plan of care. [facility] Signed and Approved by: ZELDA MCDANIEL . 10/10/2021 10:22:00[facility] note* Diagnosis Onset Date Resolution Status Allergies acute Bipolar 2 disorder acute Hypertension acute Morbid obesity with BMI of 45.0-49.9, adult acute OSMANY (obstructive sleep apnea) acute Restless legs syndrome acute [facility] Work Phone: Evaluation noteNo InformationN[employer] Other Evaluation noteNo assessment information available [facility] Work Phone: Evaluation note* Diagnosis Encounter for annual wellness visit (AWV) in Medicare patient- Primary OSMANY (obstructive sleep apnea) Obstructive sleep apnea (adult) (pediatric) Chronic pain disorder Chronic pain syndrome Gastroesophageal reflux disease, unspecified whether esophagitis present Overactive bladder Hypertonicity of bladder Lower extremity edema Edema Pre-diabetes Other abnormal glucose Morbid obesity ([facility]) Morbid obesity Yeast infection of the skin Candidiasis of skin and nails Tobacco dependence Tobacco use disorder Mood disorder ([facility]) Unspecified episodic mood disorder Primary hypertension ([facility]) Unspecified essential hypertension Left hip pain Pain in joint, pelvic region and thigh Open wound of anterior abdominal wall, initial encounter documented in this encounter [facility]* Diagnosis Acute cystitis with hematuria- Primary documented in this encounter [facility] Healthcare[facility] note* Diagnosis Left foot pain- Primary Pain in soft tissues of limb Primary hypertension ([facility]) Unspecified essential hypertension Class 3 severe obesity due to excess calories without serious comorbidity with body mass index (BMI) of 45.0 to 49.9 in adult ([facility]) Encounter for annual wellness visit (AWV) in [...] (CMS/HCC) Unspecified episodic mood disorder Primary hypertension ([facility]) Unspecified essential hypertension Left hip pain Pain in joint, pelvic region and thigh Open wound of anterior abdominal wall, initial encounter Primary hypertension ([facility])- Primary Unspecified essential hypertension Yeast infection of the skin Candidiasis of skin and nails Morbid obesity ([facility]) Morbid obesity Primary hypertension ([facility])- Primary Unspecified essential hypertension Encounter for screening mammogram for malignant neoplasm of breast Gastroesophageal reflux disease, unspecified whether esophagitis present Acute gout of right foot, unspecified cause Osteoporosis, unspecified osteoporosis type, unspecified pathological fracture presence ([facility]) Morbid obesity ([facility]) Morbid obesity Pre-diabetes Other abnormal glucose Anemia, unspecified type Vitamin deficiency Unspecified vitamin deficiency Post-viral cough syndrome Primary hypertension ([facility])- Primary Unspecified essential hypertension Allergic rhinitis, unspecified Acute cough Morbid obesity ([facility]) Morbid obesity Former cigarette smoker Personal history of tobacco use, presenting hazards to health Toxic metabolic encephalopathy- Primary Hemiparesis, right ([facility]) Unspecified hemiplegia affecting unspecified side Acute respiratory failure with hypoxia ([facility]) Heart murmur Undiagnosed cardiac murmurs Primary hypertension ([facility] Unspecified essential hypertension Morbid obesity ([facility]) Morbid obesity Bipolar disorder with severe depression ([facility]) Slurred speech Other speech disturbance Bilateral lower extremity edema- Primary Primary hypertension ([facility]) Unspecified essential hypertension Lower extremity edema Edema Essential (primary) hypertension ([facility]) Unspecified essential hypertension Gastro-esophageal reflux disease without esophagitis Allergic rhinitis, unspecified Bilateral lower extremity edema- Primary Morbid (severe) obesity due to excess calories ([facility]) Body mass index (BMI) 45.0-49.9, adult ([facility]) Pre-diabetes Other abnormal glucose Bilateral lower extremity edema- Primary Essential (primary) hypertension ([facility]) Unspecified essential hypertension Allergic rhinitis, unspecified OSMANY (obstructive sleep apnea) Obstructive sleep apnea (adult) (pediatric) Primary hypertension ([facility]) Unspecified essential hypertension Morbid obesity ([facility]) Morbid obesity Acute cystitis without hematuria- Primary Tobacco dependence Tobacco use disorder Needs flu shot Need for prophylactic vaccination and inoculation against influenza Morbid obesity ([facility]) Morbid obesity documented in this encounter [facility]* Diagnosis Left foot pain- Primary Pain in soft tissues of limb Primary hypertension ([facility]) Unspecified essential hypertension Class 3 severe obesity due to excess calories without serious comorbidity with body mass index (BMI) of 45.0 to 49.9 in adult ([facility]) Encounter for annual wellness visit (AWV) in Medicare patient- Primary OSMANY (obstructive sleep apnea) Obstructive sleep apnea (adult) (pediatric) Chronic pain disorder Chronic pain syndrome Gastroesophageal reflux disease, unspecified whether esophagitis present Overactive bladder Hypertonicity of bladder Lower extremity edema Edema Pre-diabetes Other abnormal glucose Morbid obesity ([facility]) Morbid obesity Yeast infection of the skin Candidiasis of skin and nails Tobacco dependence Tobacco use disorder Mood disorder ([facility]) Unspecified episodic mood disorder Primary hypertension ([facility]) Unspecified essential hypertension Left hip pain Pain in joint, pelvic region and thigh Open wound of anterior abdominal wall, initial encounter Primary hypertension ([facility])- Primary Unspecified essential hypertension Yeast infection of the skin Candidiasis of skin and nails Morbid obesity ([facility]) Morbid obesity Primary hypertension ([facility])- Primary Unspecified essential hypertension Encounter for screening mammogram for malignant neoplasm of breast Gastroesophageal reflux disease, unspecified whether esophagitis present Acute gout of right foot, unspecified cause Osteoporosis, unspecified osteoporosis type, unspecified pathological fracture presence ([facility]) Morbid obesity ([facility]) Morbid obesity Pre-diabetes Other abnormal glucose Anemia, unspecified type Vitamin deficiency Unspecified vitamin deficiency Post-viral cough syndrome Primary hypertension ([facility])- Primary Unspecified essential hypertension Allergic rhinitis, unspecified Acute cough Morbid obesity ([facility]) Morbid obesity Former cigarette smoker Personal history of tobacco use, presenting hazards to health Toxic metabolic encephalopathy- Primary Hemiparesis, right ([facility]) Unspecified hemiplegia affecting unspecified side Acute respiratory failure with hypoxia ([facility]) Heart murmur Undiagnosed cardiac murmurs Primary hypertension ([facility]) Unspecified essential hypertension Morbid obesity ([facility]) Morbid obesity Bipolar disorder with severe depression ([facility]) Slurred speech Other speech disturbance Bilateral lower extremity edema- Primary Primary hypertension ([facility]) Unspecified essential hypertension Lower extremity edema Edema Essential (primary) hypertension ([facility]) Unspecified essential hypertension Gastro-esophageal reflux disease without esophagitis Allergic rhinitis, unspecified Bilateral lower extremity edema- Primary Morbid (severe) obesity due to excess calories ([facility]) Body mass index (BMI) 45.0-49.9, adult ([facility]) Pre-diabetes Other abnormal glucose Bilateral lower extremity edema- Primary Essential (primary) hypertension ([facility]) Unspecified essential hypertension Allergic rhinitis, unspecified OSMANY (obstructive sleep apnea) Obstructive sleep apnea (adult) (pediatric) Primary hypertension ([facility]) Unspecified essential hypertension Morbid obesity ([facility]) Morbid obesity Acute cystitis without hematuria- Primary Tobacco dependence Tobacco use disorder Needs flu shot Need for prophylactic vaccination and inoculation against influenza Morbid obesity ([facility]) Morbid obesity Restless leg Restless legs syndrome (RLS) documented in this encounter [facility]* Diagnosis Left foot pain- Primary Pain in soft tissues of limb Primary hypertension ([facility]) Unspecified essential hypertension Class 3 severe obesity due to excess calories without serious comorbidity with body mass index (BMI) of 45.0 to 49.9 in adult ([facility]) Encounter for annual wellness visit (AWV) in Medicare patient- Primary OSMANY (obstructive sleep apnea) Obstructive sleep apnea (adult) (pediatric) Chronic pain disorder Chronic pain syndrome Gastroesophageal reflux disease, unspecified whether esophagitis present Overactive bladder Hypertonicity of bladder Lower extremity edema Edema Pre-diabetes Other abnormal glucose Morbid obesity ([facility]) Morbid obesity Yeast infection of the skin Candidiasis of skin and nails Tobacco dependence Tobacco use disorder Mood disorder ([facility]) Unspecified episodic mood disorder Primary hypertension ([facility]) Unspecified essential hypertension Left hip pain Pain in joint, pelvic region and thigh Open wound of anterior abdominal wall, initial encounter Primary hypertension ([facility])- Primary Unspecified essential hypertension Yeast infection of the skin Candidiasis of skin and nails Morbid obesity ([facility]) Morbid obesity Primary hypertension ([facility])- Primary Unspecified essential hypertension Encounter for screening mammogram for malignant neoplasm of breast Gastroesophageal reflux disease, unspecified whether esophagitis present Acute gout of right foot, unspecified cause Osteoporosis, unspecified osteoporosis type, unspecified pathological fracture presence ([facility]) Morbid obesity ([facility]) Morbid obesity Pre-diabetes Other abnormal glucose Anemia, unspecified type Vitamin deficiency Unspecified vitamin deficiency Post-viral cough syndrome Primary hypertension ([facility])- Primary Unspecified essential hypertension Allergic rhinitis, unspecified Acute cough Morbid obesity ([facility]) Morbid obesity Former cigarette smoker Personal history of tobacco use, presenting hazards to health Toxic metabolic encephalopathy- Primary Hemiparesis, right ([facility]) Unspecified hemiplegia affecting unspecified side Acute respiratory failure with hypoxia ([facility]) Heart murmur Undiagnosed cardiac murmurs Primary hypertension ([facility]) Unspecified essential hypertension Morbid obesity ([facility]) Morbid obesity Bipolar disorder with severe depression ([facility]) Slurred speech Other speech disturbance Bilateral lower extremity edema- Primary Primary hypertension ([facility]) Unspecified essential hypertension Lower extremity edema Edema Essential (primary) hypertension ([facility]) Unspecified essential hypertension Gastro-esophageal reflux disease without esophagitis Allergic rhinitis, unspecified Bilateral lower extremity edema- Primary Morbid (severe) obesity due to excess calories ([facility]) Body mass index (BMI) 45.0-49.9, adult ([facility]) Pre-diabetes Other abnormal glucose Bilateral lower extremity edema- Primary Essential (primary) hypertension ([facility]) Unspecified essential hypertension Allergic rhinitis, unspecified OSMANY (obstructive sleep apnea) Obstructive sleep apnea (adult) (pediatric) Primary hypertension ([facility]) Unspecified essential hypertension Morbid obesity ([facility]) Morbid obesity Acute cystitis without hematuria- Primary Tobacco dependence Tobacco use disorder Needs flu shot Need for prophylactic vaccination and inoculation against influenza Morbid obesity ([facility]) Morbid obesity Well woman exam with routine gynecological exam- Primary Routine gynecological examination Morbid obesity ([facility]) Morbid obesity documented in this encounter [facility]* Diagnosis Left foot pain- Primary Pain in soft tissues of limb Primary hypertension ([facility]) Unspecified essential hypertension Class 3 severe obesity due to excess calories without serious comorbidity with body mass index (BMI) of 45.0 to 49.9 in adult ([facility]) Encounter for annual wellness visit (AWV) in Medicare patient- Primary OSMANY (obstructive sleep apnea) Obstructive sleep apnea (adult) (pediatric) Chronic pain disorder Chronic pain syndrome Gastroesophageal reflux disease, unspecified whether esophagitis present Overactive bladder Hypertonicity of bladder Lower extremity edema Edema Pre-diabetes Other abnormal glucose Morbid obesity ([facility]) Morbid obesity Yeast infection of the skin Candidiasis of skin and nails Tobacco dependence Tobacco use disorder Mood disorder ([facility]) Unspecified episodic mood disorder Primary hypertension ([facility]) Unspecified essential hypertension Left hip pain Pain in joint, pelvic region and thigh Open wound of anterior abdominal wall, initial encounter Primary hypertension ([facility])- Primary Unspecified essential hypertension Yeast infection of the skin Candidiasis of skin and nails Morbid obesity ([facility]) Morbid obesity Primary hypertension ([facility])- Primary Unspecified essential hypertension Encounter for screening mammogram for malignant neoplasm of breast Gastroesophageal reflux disease, unspecified whether esophagitis present Acute gout of right foot, unspecified cause Osteoporosis, unspecified osteoporosis type, unspecified pathological fracture presence ([facility]) Morbid obesity ([facility]) Morbid obesity Pre-diabetes Other abnormal glucose Anemia, unspecified type Vitamin deficiency Unspecified vitamin deficiency Post-viral cough syndrome Primary hypertension ([facility])- Primary Unspecified essential hypertension Allergic rhinitis, unspecified Acute cough Morbid obesity ([facility]) Morbid obesity Former cigarette smoker Personal history of tobacco use, presenting hazards to health Toxic metabolic encephalopathy- Primary Hemiparesis, right ([facility]) Unspecified hemiplegia affecting unspecified side Acute respiratory failure with hypoxia ([facility]) Heart murmur Undiagnosed cardiac murmurs Primary hypertension ([facility]) Unspecified essential hypertension Morbid obesity ([facility]) Morbid obesity Bipolar disorder with severe depression ([facility]) Slurred speech Other speech disturbance Bilateral lower extremity edema- Primary Primary hypertension ([facility]) Unspecified essential hypertension Lower extremity edema Edema Essential (primary) hypertension ([facility]) Unspecified essential hypertension Gastro-esophageal reflux disease without esophagitis Allergic rhinitis, unspecified Bilateral lower extremity edema- Primary Morbid (severe) obesity due to excess calories ([facility]) Body mass index (BMI) 45.0-49.9, adult ([facility]) Pre-diabetes Other abnormal glucose Bilateral lower extremity edema- Primary Essential (primary) hypertension ([facility]) Unspecified essential hypertension Allergic rhinitis, unspecified OSMANY (obstructive sleep apnea) Obstructive sleep apnea (adult) (pediatric) Primary hypertension ([facility]) Unspecified essential hypertension Morbid obesity ([facility]) Morbid obesity Acute cystitis without hematuria- Primary Tobacco dependence Tobacco use disorder Needs flu shot Need for prophylactic vaccination and inoculation against influenza Morbid obesity ([facility]) Morbid obesity Well woman exam with routine gynecological exam- Primary Routine gynecological examination Morbid obesity ([facility]) Morbid obesity Essential (primary) hypertension ([facility]) Unspecified essential hypertension Allergic rhinitis, unspecified documented in this encounter [facility]* Diagnosis Left foot pain- Primary Pain in soft tissues of limb Primary hypertension ([facility]) Unspecified essential hypertension Class 3 severe obesity due to excess calories without serious comorbidity with body mass index (BMI) of 45.0 to 49.9 in adult ([facility]) Encounter for annual wellness visit (AWV) in Medicare patient- Primary OSMANY (obstructive sleep apnea) Obstructive sleep apnea (adult) (pediatric) Chronic pain disorder Chronic pain syndrome Gastroesophageal reflux disease, unspecified whether esophagitis present Overactive bladder Hypertonicity of bladder Lower extremity edema Edema Pre-diabetes Other abnormal glucose Morbid obesity ([facility]) Morbid obesity Yeast infection of the skin Candidiasis of skin and nails Tobacco dependence Tobacco use disorder Mood disorder ([facility]) Unspecified episodic mood disorder Primary hypertension ([facility]) Unspecified essential hypertension Left hip pain Pain in joint, pelvic region and thigh Open wound of anterior abdominal wall, initial encounter Primary hypertension ([facility])- Primary Unspecified essential hypertension Yeast infection of the skin Candidiasis of skin and nails Morbid obesity ([facility]) Morbid obesity Primary hypertension ([facility])- Primary Unspecified essential hypertension Encounter for screening mammogram for malignant neoplasm of breast Gastroesophageal reflux disease, unspecified whether esophagitis present Acute gout of right foot, unspecified cause Osteoporosis, unspecified osteoporosis type, unspecified pathological fracture presence ([facility]) Morbid obesity ([facility]) Morbid obesity Pre-diabetes Other abnormal glucose Anemia, unspecified type Vitamin deficiency Unspecified vitamin deficiency Post-viral cough syndrome Primary hypertension ([facility])- Primary Unspecified essential hypertension Allergic rhinitis, unspecified Acute cough Morbid obesity ([facility]) Morbid obesity Former cigarette smoker Personal history of tobacco use, presenting hazards to health Toxic metabolic encephalopathy- Primary Hemiparesis, right ([facility]) Unspecified hemiplegia affecting unspecified side Acute respiratory failure with hypoxia ([facility]) Heart murmur Undiagnosed cardiac murmurs Primary hypertension ([facility]) Unspecified essential hypertension Morbid obesity ([facility]) Morbid obesity Bipolar disorder with severe depression ([facility]) Slurred speech Other speech disturbance Bilateral lower extremity edema- Primary Primary hypertension ([facility]) Unspecified essential hypertension Lower extremity edema Edema Essential (primary) hypertension ([facility]) Unspecified essential hypertension Gastro-esophageal reflux disease without esophagitis Allergic rhinitis, unspecified Bilateral lower extremity edema- Primary Morbid (severe) obesity due to excess calories ([facility]) Body mass index (BMI) 45.0-49.9, adult ([facility]) Pre-diabetes Other abnormal glucose Bilateral lower extremity edema- Primary Essential (primary) hypertension ([facility]) Unspecified essential hypertension Allergic rhinitis, unspecified OSMANY (obstructive sleep apnea) Obstructive sleep apnea (adult) (pediatric) Primary hypertension ([facility]) Unspecified essential hypertension Morbid obesity ([facility]) Morbid obesity Acute cystitis without hematuria- Primary Tobacco dependence Tobacco use disorder Needs flu shot Need for prophylactic vaccination and inoculation against influenza Morbid obesity (CMS/HCC) Morbid obesity Well woman exam with routine gynecological exam- Primary Routine gynecological examination Morbid obesity (CMS/HCC) Morbid obesity Allergic rhinitis, unspecified documented in this encounter [facility]* Diagnosis Left foot pain- Primary Pain in soft tissues of limb Primary hypertension ([facility]) Unspecified essential hypertension Class 3 severe obesity due to excess calories without serious comorbidity with body mass index (BMI) of 45.0 to 49.9 in adult ([facility]) Encounter for annual wellness visit (AWV) in Medicare patient- Primary OSMANY (obstructive sleep apnea) Obstructive sleep apnea (adult) (pediatric) Chronic pain disorder Chronic pain syndrome Gastroesophageal reflux disease, unspecified whether esophagitis present Overactive bladder Hypertonicity of bladder Lower extremity edema Edema Pre-diabetes Other abnormal glucose Morbid obesity ([facility]) Morbid obesity Yeast infection of the skin Candidiasis of skin and nails Tobacco dependence Tobacco use disorder Mood disorder ([facility]) Unspecified episodic mood disorder Primary hypertension ([facility]) Unspecified essential hypertension Left hip pain Pain in joint, pelvic region and thigh Open wound of anterior abdominal wall, initial encounter Primary hypertension ([facility])- Primary Unspecified essential hypertension Yeast infection of the skin Candidiasis of skin and nails Morbid obesity ([facility]) Morbid obesity Primary hypertension ([facility])- Primary Unspecified essential hypertension Encounter for screening mammogram for malignant neoplasm of breast Gastroesophageal reflux disease, unspecified whether esophagitis present Acute gout of right foot, unspecified cause Osteoporosis, unspecified osteoporosis type, unspecified pathological fracture presence ([facility]) Morbid obesity ([facility]) Morbid obesity Pre-diabetes Other abnormal glucose Anemia, unspecified type Vitamin deficiency Unspecified vitamin deficiency Post-viral cough syndrome Primary hypertension ([facility])- Primary Unspecified essential hypertension Allergic rhinitis, unspecified Acute cough Morbid obesity ([facility]) Morbid obesity Former cigarette smoker Personal history of tobacco use, presenting hazards to health Toxic metabolic encephalopathy- Primary Hemiparesis, right ([facility]) Unspecified hemiplegia affecting unspecified side Acute respiratory failure with hypoxia ([facility]) Heart murmur Undiagnosed cardiac murmurs Primary hypertension ([facility]) Unspecified essential hypertension Morbid obesity ([facility]) Morbid obesity Bipolar disorder with severe depression ([facility]) Slurred speech Other speech disturbance Bilateral lower extremity edema- Primary Primary hypertension ([facility]) Unspecified essential hypertension Lower extremity edema Edema Essential (primary) hypertension ([facility]) Unspecified essential hypertension Gastro-esophageal reflux disease without esophagitis Allergic rhinitis, unspecified Bilateral lower extremity edema- Primary Morbid (severe) obesity due to excess calories ([facility]) Body mass index (BMI) 45.0-49.9, adult ([facility]) Pre-diabetes Other abnormal glucose Bilateral lower extremity edema- Primary Essential (primary) hypertension ([facility]) Unspecified essential hypertension Allergic rhinitis, unspecified OSMANY (obstructive sleep apnea) Obstructive sleep apnea (adult) (pediatric) Primary hypertension ([facility]) Unspecified essential hypertension Morbid obesity ([facility]) Morbid obesity Acute cystitis without hematuria- Primary Tobacco dependence Tobacco use disorder Needs flu shot Need for prophylactic vaccination and inoculation against influenza Morbid obesity ([facility]) Morbid obesity Well woman exam with routine gynecological exam- Primary Routine gynecological examination Morbid obesity ([facility]) Morbid obesity Yeast infection of the skin Candidiasis of skin and nails documented in this encounter [facility] HealthcareEvaluation note* Diagnosis Left foot pain- Primary Pain in soft tissues of limb Primary hypertension ([facility]) Unspecified essential hypertension Class 3 severe obesity due to excess calories without serious comorbidity with body mass index (BMI) of 45.0 to 49.9 in adult ([facility]) Encounter for annual wellness visit (AWV) in Medicare patient- Primary OSMANY (obstructive sleep apnea) Obstructive sleep apnea (adult) (pediatric) Chronic pain disorder Chronic pain syndrome Gastroesophageal reflux disease, unspecified whether esophagitis present Overactive bladder Hypertonicity of bladder Lower extremity edema Edema Pre-diabetes Other abnormal glucose Morbid obesity ([facility]) Morbid obesity Yeast infection of the skin Candidiasis of skin and nails Tobacco dependence Tobacco use disorder Mood disorder ([facility]) Unspecified episodic mood disorder Primary hypertension ([facility]) Unspecified essential hypertension Left hip pain Pain in joint, pelvic region and thigh Open wound of anterior abdominal wall, initial encounter Primary hypertension ([facility])- Primary Unspecified essential hypertension Yeast infection of the skin Candidiasis of skin and nails Morbid obesity ([facility]) Morbid obesity Primary hypertension ([facility])- Primary Unspecified essential hypertension Encounter for screening mammogram for malignant neoplasm of breast Gastroesophageal reflux disease, unspecified whether esophagitis present Acute gout of right foot, unspecified cause Osteoporosis, unspecified osteoporosis type, unspecified pathological fracture presence ([facility]) Morbid obesity ([facility]) Morbid obesity Pre-diabetes Other abnormal glucose Anemia, unspecified type Vitamin deficiency Unspecified vitamin deficiency Post-viral cough syndrome Primary hypertension ([facility])- Primary Unspecified essential hypertension Allergic rhinitis, unspecified Acute cough Morbid obesity ([facility]) Morbid obesity Former cigarette smoker Personal history of tobacco use, presenting hazards to health Toxic metabolic encephalopathy- Primary Hemiparesis, right ([facility]) Unspecified hemiplegia affecting unspecified side Acute respiratory failure with hypoxia ([facility]) Heart murmur Undiagnosed cardiac murmurs Primary hypertension ([facility]) Unspecified essential hypertension Morbid obesity ([facility]) Morbid obesity Bipolar disorder with severe depression ([facility]) Slurred speech Other speech disturbance Bilateral lower extremity edema- Primary Primary hypertension ([facility]) Unspecified essential hypertension Lower extremity edema Edema Essential (primary) hypertension ([facility]) Unspecified essential hypertension Gastro-esophageal reflux disease without esophagitis Allergic rhinitis, unspecified Bilateral lower extremity edema- Primary Morbid (severe) obesity due to excess calories ([facility]) Body mass index (BMI) 45.0-49.9, adult ([facility]) Pre-diabetes Other abnormal glucose Bilateral lower extremity edema- Primary Essential (primary) hypertension ([facility]) Unspecified essential hypertension Allergic rhinitis, unspecified OSMANY (obstructive sleep apnea) Obstructive sleep apnea (adult) (pediatric) Primary hypertension ([facility]) Unspecified essential hypertension Morbid obesity ([facility]) Morbid obesity Acute cystitis without hematuria- Primary Tobacco dependence Tobacco use disorder Needs flu shot Need for prophylactic vaccination and inoculation against influenza Morbid obesity (CMS/HCC) Morbid obesity Well woman exam with routine gynecological exam- Primary Routine gynecological examination Morbid obesity ([facility]) Morbid obesity Metabolic encephalopathy- Primary OSMANY (obstructive sleep apnea) Obstructive sleep apnea (adult) (pediatric) Restless leg Restless legs syndrome (RLS) 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 ([facility]) Degeneration of intervertebral disc of lumbar region with discogenic back pain and lower extremity pain Memory change Memory loss documented in this encounter [facility] HealthcareEvaluation note* Diagnosis Left foot pain- Primary Pain in soft tissues of limb Primary hypertension ([facility]) Unspecified essential hypertension Class 3 severe obesity due to excess calories without serious comorbidity with body mass index (BMI) of 45.0 to 49.9 in adult ([facility]) Encounter for annual wellness visit (AWV) in Medicare patient- Primary OSMANY (obstructive sleep apnea) Obstructive sleep apnea (adult) (pediatric) Chronic pain disorder Chronic pain syndrome Gastroesophageal reflux disease, unspecified whether esophagitis present Overactive bladder Hypertonicity of bladder Lower extremity edema Edema Pre-diabetes Other abnormal glucose Morbid obesity ([facility]) Morbid obesity Yeast infection of the skin Candidiasis of skin and nails Tobacco dependence Tobacco use disorder Mood disorder ([facility]) Unspecified episodic mood disorder Primary hypertension ([facility]) Unspecified essential hypertension Left hip pain Pain in joint, pelvic region and thigh Open wound of anterior abdominal wall, initial encounter Primary hypertension ([facility])- Primary Unspecified essential hypertension Yeast infection of the skin Candidiasis of skin and nails Morbid obesity ([facility]) Morbid obesity Primary hypertension ([facility])- Primary Unspecified essential hypertension Encounter for screening mammogram for malignant neoplasm of breast Gastroesophageal reflux disease, unspecified whether esophagitis present Acute gout of right foot, unspecified cause Osteoporosis, unspecified osteoporosis type, unspecified pathological fracture presence ([facility]) Morbid obesity ([facility]) Morbid obesity Pre-diabetes Other abnormal glucose Anemia, unspecified type Vitamin deficiency Unspecified vitamin deficiency Post-viral cough syndrome Primary hypertension ([facility])- Primary Unspecified essential hypertension Allergic rhinitis, unspecified Acute cough Morbid obesity ([facility]) Morbid obesity Former cigarette smoker Personal history of tobacco use, presenting hazards to health Toxic metabolic encephalopathy- Primary Hemiparesis, right ([facility]) Unspecified hemiplegia affecting unspecified side Acute respiratory failure with hypoxia ([facility]) Heart murmur Undiagnosed cardiac murmurs Primary hypertension ([facility]) Unspecified essential hypertension Morbid obesity ([facility]) Morbid obesity Bipolar disorder with severe depression ([facility]) Slurred speech Other speech disturbance Bilateral lower extremity edema- Primary Primary hypertension ([facility]) Unspecified essential hypertension Lower extremity edema Edema Essential (primary) hypertension ([facility]) Unspecified essential hypertension Gastro-esophageal reflux disease without esophagitis Allergic rhinitis, unspecified Bilateral lower extremity edema- Primary Morbid (severe) obesity due to excess calories ([facility]) Body mass index (BMI) 45.0-49.9, adult ([facility]) Pre-diabetes Other abnormal glucose Bilateral lower extremity edema- Primary Essential (primary) hypertension ([facility]) Unspecified essential hypertension Allergic rhinitis, unspecified OSMANY (obstructive sleep apnea) Obstructive sleep apnea (adult) (pediatric) Primary hypertension ([facility]) Unspecified essential hypertension Morbid obesity ([facility]) Morbid obesity Acute cystitis without hematuria- Primary Tobacco dependence Tobacco use disorder Needs flu shot Need for prophylactic vaccination and inoculation against influenza Morbid obesity (CMS/HCC) Morbid obesity Well woman exam with routine gynecological exam- Primary Routine gynecological examination Morbid obesity ([facility]) Morbid obesity Altered mental status, unspecified altered mental status type- Primary Restless leg Restless legs syndrome (RLS) 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[facility]) OSMANY (obstructive sleep apnea) Obstructive sleep apnea (adult) (pediatric) documented in this encounter [facility] HealthcareEvaluation note* Diagnosis Left foot pain- Primary Pain in soft tissues of limb Primary hypertension ([facility]) Unspecified essential hypertension Class 3 severe obesity due to excess calories without serious comorbidity with body mass index (BMI) of 45.0 to 49.9 in adult ([facility]) Encounter for annual wellness visit (AWV) in Medicare patient- Primary OSMANY (obstructive sleep apnea) Obstructive sleep apnea (adult) (pediatric) Chronic pain disorder Chronic pain syndrome Gastroesophageal reflux disease, unspecified whether esophagitis present Overactive bladder Hypertonicity of bladder Lower extremity edema Edema Pre-diabetes Other abnormal glucose Morbid obesity ([facility]) Morbid obesity Yeast infection of the skin Candidiasis of skin and nails Tobacco dependence Tobacco use disorder Mood disorder ([facility]) Unspecified episodic mood disorder Primary hypertension ([facility]) Unspecified essential hypertension Left hip pain Pain in joint, pelvic region and thigh Open wound of anterior abdominal wall, initial encounter Primary hypertension ([facility])- Primary Unspecified essential hypertension Yeast infection of the skin Candidiasis of skin and nails Morbid obesity ([facility]) Morbid obesity Primary hypertension ([facility])- Primary Unspecified essential hypertension Encounter for screening mammogram for malignant neoplasm of breast Gastroesophageal reflux disease, unspecified whether esophagitis present Acute gout of right foot, unspecified cause Osteoporosis, unspecified osteoporosis type, unspecified pathological fracture presence ([facility]) Morbid obesity ([facility]) Morbid obesity Pre-diabetes Other abnormal glucose Anemia, unspecified type Vitamin deficiency Unspecified vitamin deficiency Post-viral cough syndrome Primary hypertension ([facility])- Primary Unspecified essential hypertension Allergic rhinitis, unspecified Acute cough Morbid obesity ([facility]) Morbid obesity Former cigarette smoker Personal history of tobacco use, presenting hazards to health Toxic metabolic encephalopathy- Primary Hemiparesis, right ([facility]) Unspecified hemiplegia affecting unspecified side Acute respiratory failure with hypoxia ([facility]) Heart murmur Undiagnosed cardiac murmurs Primary hypertension ([facility]) Unspecified essential hypertension Morbid obesity ([facility]) Morbid obesity Bipolar disorder with severe depression ([facility]) Slurred speech Other speech disturbance Bilateral lower extremity edema- Primary Primary hypertension ([facility]) Unspecified essential hypertension Lower extremity edema Edema Essential (primary) hypertension ([facility]) Unspecified essential hypertension Gastro-esophageal reflux disease without esophagitis Allergic rhinitis, unspecified Bilateral lower extremity edema- Primary Morbid (severe) obesity due to excess calories ([facility]) Body mass index (BMI) 45.0-49.9, adult ([facility]) Pre-diabetes Other abnormal glucose Bilateral lower extremity edema- Primary Essential (primary) hypertension ([facility]) Unspecified essential hypertension Allergic rhinitis, unspecified OSMANY (obstructive sleep apnea) Obstructive sleep apnea (adult) (pediatric) Primary hypertension ([facility]) Unspecified essential hypertension Morbid obesity ([facility]) Morbid obesity Acute cystitis without hematuria- Primary Tobacco dependence Tobacco use disorder Needs flu shot Need for prophylactic vaccination and inoculation against influenza Morbid obesity ([facility]) Morbid obesity Well woman exam with routine gynecological exam- Primary Routine gynecological examination Morbid obesity ([facility]) Morbid obesity Altered mental status, unspecified altered mental status type- Primary Memory change Memory loss Concentration deficit 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 ([facility]) PTSD (post-traumatic stress disorder) ([facility]) Posttraumatic stress disorder Bipolar affective disorder, remission status unspecified ([facility]) Family history of dementia Family history of [...] Edema Pre-diabetes Other abnormal glucose Morbid obesity ([facility]) Morbid obesity Yeast infection of the skin Candidiasis of skin and nails Tobacco dependence Tobacco use disorder Mood disorder ([facility]) Unspecified episodic mood disorder Primary hypertension ([facility]) Unspecified essential hypertension Left hip pain Pain in joint, pelvic region and thigh Open wound of anterior abdominal wall, initial encounter Primary hypertension ([facility])- Primary Unspecified essential hypertension Yeast infection of the skin Candidiasis of skin and nails Morbid obesity ([facility]) Morbid obesity Primary hypertension ([facility])- Primary Unspecified essential hypertension Allergic rhinitis, unspecified Acute cough Morbid obesity ([facility]) Morbid obesity Former cigarette smoker Personal history of tobacco use, presenting hazards to health Toxic metabolic encephalopathy- Primary Hemiparesis, right ([facility]) Unspecified hemiplegia affecting unspecified side Acute respiratory failure with hypoxia ([facility]) Heart murmur Undiagnosed cardiac murmurs Primary hypertension ([facility]) Unspecified essential hypertension Morbid obesity ([facility]) Morbid obesity Bipolar disorder with severe depression ([facility]) Slurred speech Other speech disturbance Bilateral lower extremity edema- Primary Primary hypertension ([facility]) Unspecified essential hypertension Lower extremity edema Edema Essential (primary) hypertension ([facility]) Unspecified essential hypertension Gastro-esophageal reflux disease without esophagitis Allergic rhinitis, unspecified Bilateral lower extremity edema- Primary Morbid (severe) obesity due to excess calories ([facility]) Body mass index (BMI) 45.0-49.9, adult ([facility]) Pre-diabetes Other abnormal glucose Bilateral lower extremity edema- Primary Essential (primary) hypertension ([facility]) Unspecified essential hypertension Allergic rhinitis, unspecified OSMANY (obstructive sleep apnea) Obstructive sleep apnea (adult) (pediatric) Primary hypertension ([facility]) Unspecified essential hypertension Morbid obesity ([facility]) Morbid obesity Acute cystitis without hematuria- Primary Tobacco dependence Tobacco use disorder Needs flu shot Need for prophylactic vaccination and inoculation against influenza Morbid obesity ([facility]) Morbid obesity Well woman exam with routine gynecological exam- Primary Routine gynecological examination Morbid obesity ([facility]) Morbid obesity Restless leg Restless legs syndrome (RLS) Metabolic encephalopathy- Primary OSMANY (obstructive sleep apnea) Obstructive sleep apnea (adult) (pediatric) Morbid obesity ([facility]) Morbid obesity Bilateral lower extremity edema Tobacco dependence Tobacco use disorder Bipolar disorder with severe depression ([facility]) At risk for polypharmacy Anxiety Anxiety state, unspecified documented in this encounter [facility]* Diagnosis Encounter for annual wellness visit (AWV) in Medicare patient- Primary OSMANY (obstructive sleep apnea) Obstructive sleep apnea (adult) (pediatric) Chronic pain disorder Chronic pain syndrome Gastroesophageal reflux disease, unspecified whether esophagitis present Overactive bladder Hypertonicity of bladder Lower extremity edema Edema Pre-diabetes Other abnormal glucose Morbid obesity ([facility]) Morbid obesity Yeast infection of the skin Candidiasis of skin and nails Tobacco dependence Tobacco use disorder Mood disorder ([facility]) Unspecified episodic mood disorder Primary hypertension ([facility]) Unspecified essential hypertension Left hip pain Pain in joint, pelvic region and thigh Open wound of anterior abdominal wall, initial encounter Primary hypertension ([facility])- Primary Unspecified essential hypertension Yeast infection of the skin Candidiasis of skin and nails Morbid obesity ([facility]) Morbid obesity Primary hypertension ([facility])- Primary Unspecified essential hypertension Allergic rhinitis, unspecified Acute cough Morbid obesity ([facility] SYSTEM) Morbid obesity Former cigarette smoker Personal history of tobacco use, presenting hazards to health Toxic metabolic encephalopathy- Primary Hemiparesis, right ([facility]) Unspecified hemiplegia affecting unspecified side Acute respiratory failure with hypoxia ([facility]) Heart murmur Undiagnosed cardiac murmurs Primary hypertension ([facility]) Unspecified essential hypertension Morbid obesity ([facility]) Morbid obesity Bipolar disorder with severe depression ([facility]) Slurred speech Other speech disturbance Bilateral lower extremity edema- Primary Primary hypertension ([facility]) Unspecified essential hypertension Lower extremity edema Edema Essential (primary) hypertension ([facility]) Unspecified essential hypertension Gastro-esophageal reflux disease without esophagitis Allergic rhinitis, unspecified Bilateral lower extremity edema- Primary Morbid (severe) obesity due to excess calories ([facility]) Body mass index (BMI) 45.0-49.9, adult ([facility]) Pre-diabetes Other abnormal glucose Bilateral lower extremity edema- Primary Essential (primary) hypertension ([facility]) Unspecified essential hypertension Allergic rhinitis, unspecified OSMANY (obstructive sleep apnea) Obstructive sleep apnea (adult) (pediatric) Primary hypertension ([facility]) Unspecified essential hypertension Morbid obesity ([facility]) Morbid obesity Acute cystitis without hematuria- Primary Tobacco dependence Tobacco use disorder Needs flu shot Need for prophylactic vaccination and inoculation against influenza Morbid obesity ([facility]) Morbid obesity Well woman exam with routine gynecological exam- Primary Routine gynecological examination Morbid obesity ([facility]) Morbid obesity Metabolic encephalopathy- Primary OSMANY (obstructive sleep apnea) Obstructive sleep apnea (adult) (pediatric) Morbid obesity ([facility]) Morbid obesity Bilateral lower extremity edema Tobacco dependence Tobacco use disorder Bipolar disorder with severe depression ([facility]) At risk for polypharmacy Anxiety Anxiety state, unspecified Primary hypertension (CMS/HCC) Unspecified essential hypertension Right bundle branch block (RBBB) determined by electrocardiography [facility] Diagnosis Yeast infection of the skin- Primary Candidiasis of skin and nails documented [facility]* Diagnosis 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CMS/HCC)- Primary Restless leg Restless legs syndrome (RLS) Metabolic encephalopathy documented in this encounter [facility]* Diagnosis OSMANY (obstructive sleep apnea)- Primary Obstructive sleep apnea (adult) (pediatric) Restless leg Restless legs syndrome (RLS) documented in [facility]* Diagnosis Bilateral lower extremity edema- Primary Essential (primary) hypertension (CMS/HCC) Unspecified essential hypertension Allergic rhinitis, unspecified OSMANY (obstructive sleep apnea) Obstructive sleep apnea (adult) (pediatric) Primary hypertension (CMS/HCC) Unspecified essential hypertension Morbid obesity ([facility]) Morbid obesity documented in this encounter [facility]* Diagnosis Lower extremity edema Edema documented in this encounter [facility]* Diagnosis Encounter for annual wellness [...] Toxic metabolic encephalopathy- Primary Hemiparesis, right ([facility]) Unspecified hemiplegia affecting unspecified side Acute respiratory failure with hypoxia ([facility]) Heart murmur Undiagnosed cardiac murmurs Primary hypertension (CMS/HCC) Unspecified essential hypertension Morbid obesity (CMS/HCC) Morbid obesity Bipolar disorder with severe depression ([facility]) Slurred speech Other speech disturbance Bilateral lower extremity edema- Primary Primary hypertension ([facility]/HCC) Unspecified essential hypertension Lower extremity edema Edema Essential (primary) hypertension ([facility]) Unspecified essential hypertension Gastro-esophageal reflux disease without esophagitis Allergic rhinitis, unspecified Bilateral lower extremity edema- Primary Morbid (severe) obesity due to excess calories ([facility]) Body mass index (BMI) 45.0-49.9, adult ([facility]) Pre-diabetes Other abnormal glucose Bilateral lower extremity edema- Primary Essential (primary) hypertension ([facility]) Unspecified essential hypertension Allergic rhinitis, unspecified OSMANY (obstructive sleep apnea) Obstructive sleep apnea (adult) (pediatric) Primary hypertension ([facility]) Unspecified essential hypertension Morbid obesity ([facility]) Morbid obesity Acute cystitis without hematuria- Primary Tobacco dependence Tobacco use disorder Needs flu shot Need for prophylactic vaccination and inoculation against influenza Morbid obesity ([facility]) Morbid obesity Well woman exam with routine gynecological exam- Primary Routine gynecological examination Morbid obesity ([facility]) Morbid obesity Metabolic encephalopathy- Primary OSMANY (obstructive sleep apnea) Obstructive sleep apnea (adult) (pediatric) Morbid obesity ([facility]) Morbid obesity Bilateral lower extremity edema Tobacco dependence Tobacco use disorder Bipolar disorder with severe depression ([facility]) At risk for polypharmacy Anxiety Anxiety state, unspecified Primary hypertension ([facility]) Unspecified essential hypertension Right bundle branch block (RBBB) determined by electrocardiography Metabolic encephalopathy- Primary Memory change Memory loss Altered mental status, unspecified altered mental status type Concentration deficit PTSD (post-traumatic stress disorder) ([facility]) Posttraumatic stress disorder Bipolar affective disorder, remission status unspecified ([facility]) Family history of dementia Family history of other neurological diseases 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[facility]) OSMANY (obstructive sleep apnea) Obstructive sleep apnea (adult) (pediatric) documented in this encounter [facility]* Diagnosis Encounter for annual wellness visit (AWV) in Medicare patient- Primary OSMANY (obstructive sleep apnea) Obstructive sleep apnea (adult) (pediatric) Chronic pain disorder Chronic pain syndrome Gastroesophageal reflux disease, unspecified whether esophagitis present Overactive bladder Hypertonicity of bladder Lower extremity edema Edema Pre-diabetes Other abnormal glucose Morbid obesity ([facility]) Morbid obesity Yeast infection of the skin Candidiasis of skin and nails Tobacco dependence Tobacco use disorder Mood disorder ([facility]) Unspecified episodic mood disorder Primary hypertension ([facility]) Unspecified essential hypertension Left hip pain Pain in joint, pelvic region and thigh Open wound of anterior abdominal wall, initial encounter Primary hypertension ([facility])- Primary Unspecified essential hypertension Yeast infection of the skin Candidiasis of skin and nails Morbid obesity (CMS/HCC) Morbid obesity Primary hypertension (CMS/HCC)- Primary Unspecified essential hypertension Allergic rhinitis, unspecified Acute cough Morbid obesity (CMS/HCC) Morbid obesity Former cigarette smoker Personal history of tobacco use, presenting hazards to health Toxic metabolic encephalopathy- Primary Hemiparesis, right ([facility]) Unspecified hemiplegia affecting unspecified side Acute respiratory failure with hypoxia ([facility]) Heart murmur Undiagnosed cardiac murmurs Primary hypertension (CMS/HCC) Unspecified essential hypertension Morbid obesity ([facility]) Morbid obesity Bipolar disorder with severe depression ([facility]) Slurred speech Other speech disturbance Bilateral lower extremity edema- Primary Primary hypertension (CMS/HCC) Unspecified essential hypertension Lower extremity edema Edema Essential (primary) hypertension ([facility]) Unspecified essential hypertension Gastro-esophageal reflux disease without esophagitis Allergic rhinitis, unspecified Bilateral lower extremity edema- Primary Morbid (severe) obesity due to excess calories ([facility]) Body mass index (BMI) 45.0-49.9, adult ([facility]) Pre-diabetes Other abnormal glucose Bilateral lower extremity edema- Primary Essential (primary) hypertension ([facility]/HCC) Unspecified essential hypertension Allergic rhinitis, unspecified OSMANY (obstructive sleep apnea) Obstructive sleep apnea (adult) (pediatric) Primary hypertension ([facility]/HCC) Unspecified essential hypertension Morbid obesity ([facility]) Morbid obesity Acute cystitis without hematuria- Primary Tobacco dependence Tobacco use disorder Needs flu shot Need for prophylactic vaccination and inoculation against influenza Morbid obesity (CMS/HCC) Morbid obesity Well woman exam with routine gynecological exam- Primary Routine gynecological examination Morbid obesity (CMS/HCC) Morbid obesity Metabolic encephalopathy- Primary OSMANY (obstructive sleep apnea) Obstructive sleep apnea (adult) (pediatric) Morbid obesity ([facility]) Morbid obesity Bilateral lower extremity edema Tobacco dependence Tobacco use disorder Bipolar disorder with severe depression ([facility]) At risk for polypharmacy Anxiety Anxiety state, unspecified Primary hypertension ([facility]CC) Unspecified essential hypertension Right bundle branch block [...] Edema Pre-diabetes Other abnormal glucose Morbid obesity ([facility]CC) Morbid obesity Yeast infection of the skin Candidiasis of skin and nails Tobacco dependence Tobacco use disorder Mood disorder ([facility]) Unspecified episodic mood disorder Primary hypertension ([facility]) Unspecified essential hypertension Left hip pain Pain in joint, pelvic region and thigh Open wound of anterior abdominal wall, initial encounter Primary hypertension ([facility])- Primary Unspecified essential hypertension Yeast infection of the skin Candidiasis of skin and nails Morbid obesity ([facility]) Morbid obesity Primary hypertension ([facility])- Primary Unspecified essential hypertension Allergic rhinitis, unspecified Acute cough Morbid obesity ([facility]) Morbid obesity Former cigarette smoker Personal history of tobacco use, presenting hazards to health Toxic metabolic encephalopathy- Primary Hemiparesis, right ([facility]) Unspecified hemiplegia affecting unspecified side Acute respiratory failure with hypoxia ([facility]) Heart murmur Undiagnosed cardiac murmurs Primary hypertension ([facility]) Unspecified essential hypertension Morbid obesity ([facility]) Morbid obesity Bipolar disorder with severe depression ([facility]) Slurred speech Other speech disturbance Bilateral lower extremity edema- Primary Primary hypertension ([facility]) Unspecified essential hypertension Lower extremity edema Edema Essential (primary) hypertension ([facility]) Unspecified essential hypertension Gastro-esophageal reflux disease without esophagitis Allergic rhinitis, unspecified Bilateral lower extremity edema- Primary Morbid (severe) obesity due to excess calories ([facility]) Body mass index (BMI) 45.0-49.9, adult ([facility]) Pre-diabetes Other abnormal glucose Bilateral lower extremity edema- Primary Essential (primary) hypertension ([facility]) Unspecified essential hypertension Allergic rhinitis, unspecified OSMANY (obstructive sleep apnea) Obstructive sleep apnea (adult) (pediatric) Primary hypertension ([facility]) Unspecified essential hypertension Morbid obesity ([facility]) Morbid obesity Acute cystitis without hematuria- Primary Tobacco dependence Tobacco use disorder Needs flu shot Need for prophylactic vaccination and inoculation against influenza Morbid obesity ([facility]) Morbid obesity Well woman exam with routine gynecological exam- Primary Routine gynecological examination Morbid obesity ([facility]) Morbid obesity Metabolic encephalopathy- Primary OSMANY (obstructive sleep apnea) Obstructive sleep apnea (adult) (pediatric) Morbid obesity (CMS/HCC) Morbid obesity Bilateral lower extremity edema Tobacco dependence Tobacco use disorder Bipolar disorder with severe depression ([facility]) At risk for polypharmacy Anxiety Anxiety state, unspecified Primary hypertension (CMS/HCC) Unspecified essential hypertension Right bundle branch block (RBBB) determined by electrocardiography Primary hypertension (CMS/HCC)- Primary Unspecified essential hypertension Chronic kidney disease, stage 3a (HCC) ([facility]) Morbid (severe) obesity due to excess calories ([facility]) Body mass index (BMI) 45.0-49.9, adult (CMS/HCC) OSMANY (obstructive sleep apnea) Obstructive sleep apnea (adult) (pediatric) Hemiparesis, right ([facility]) Unspecified hemiplegia affecting unspecified side Gastroesophageal reflux disease, unspecified whether esophagitis present Metabolic encephalopathy Essential (primary) hypertension ([facility]) Unspecified essential hypertension Allergic rhinitis, unspecified Gastro-esophageal reflux disease without esophagitis Bilateral lower extremity edema documented in this encounter [facility] Author Jace Graham [facility] March 23, 2023 11:21am Note Date/Time March 23, 2023 11:21am [facility] [address] [place] [address] Gastroenterology H&P Signed Patient: Michelle Be MR#: [id number] : 1960 Acct:[id number] Age/Sex: 62 / F Adm Date: 3 Loc: Room: Type: [facility] Attending Dr: Jace Graham MD Copies [...] Jace Graham MD> 03/23/23 1121 [facility] Work Phone: History general Narrative [...] see above surg Hospitalization History stroke 2018 [employer] Other Hospital Discharge instructions Additional Instructions Regular Diet No Activity [facility] Work Phone: Hospital Discharge instructions [...] years. -Follow up with PCP. -Office number [phone].[facility] Work Phone: Reason for visit Narrative* Consultation (Routine) - Closed Specialty Diagnoses / Procedures Referred By Radha t Referred To Contact Neuropsychology Diagnoses Memory change Procedures MD OFFICE/OUTPATIENT [facility] Juany Leggett PA [address] [place] [address] Phone: tel: fax: David Foster, PhD [address] [address] Phone: tel: fax: Referral ID Status Reason Start Date Expiration Date V isits Requested Visits Authorized [id number] Closed Specialty Services Required 03/07/2024 09/03/2024 1 1 [facility] Summary Purpose Family History No Family History Records Found Relationship Condition Age at Onset Recorded Date/T svaita Not Specified Diabetes mellitus Unknown father Hypertension Unknown father Sick sinus syndrome Unknown Advance Directives No Advanced Directives Records Found Advance Directive Response Recorded Date/ Time Advance Directives No May 7:44pm Advance Directive Response Recorded Date/ Time Advance Directives No May 6:44pm Documents on File Type Date Recorded 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0-49.9, adult OSMANY (obstructive sleep apnea) Restless legs syndrome Chief Complaint Screening Additional Source Comments INFORMATION SOURCE (unrecogn ized section and content) DATE CREATED AUTHOR 02/18/2019 [facility] DATE CREATED AUTHOR AUTHOR'S ORGANIZ ATION 11/15/2021 [facility] DATE CREATED AUTHOR AUTHOR'S ORGANIZ ATION 08/16/2022 [facility] DATE CREATED AUTHOR AUTHOR'S ORGANIZ ATION 04/29/2024 [facility] DATE CREATED AUTHOR AUTHOR'S ORGANIZ ATION 05/13/2024 [facility] DATE CREATED AUTHOR AUTHOR'S ORGANIZ ATION 05/14/2024 [facility] EPIC Care Teams (unrecognized sec tion and content) Team Status: Active Member Role Status Dates Adelaida Carrion Primary Care Provider Active Team Status: Inactive Member Role Status Dates Adelaida Carrion Primary Care Provider Active Gaudencio Monk MD Admit Provider, Attending Pr ovider Active Andreina Vieira RN Other Provider Active Camilla Pina RN Other Provider Active Ruchi Hurtado RN Other Provider Active Lisa Crooks , JOHANN Other Provider Active Tash Mejias RN Other Provider Active Elzbieta Kim RN Other Provider Active Walker Pringle MD Other Provider Active Adelaida Marsh APRN Other Provider Active Ronobir Lidia , DO [...] MD Other Provider Active Joellen Le , EMERY GRINDER-C Other Provider Active Severo Yancey MD Other Provider Active Rao Webber MD Other Provider Active Yuan Shi MD Other Provider Active Delroy Ramirez MD Other Provider Active Berta Comer , DO Other Provider Active Negrito Ruiz , DO Other Provider Active Lacho Singh , DO Other Provider Active Rachana Hobson , SLAB WORKER Other Provider Active Rob Lake , DO Other Provider Active Jeff Alvarez MD Other Provider Active Urmila Rinaldi , SLAB WORKER Other Provider Active Bina Mayberry , SLAB WORKER Other Provider Active Mri Bradford MD Other Provider Active Te Da Silva MD Other Provider Active Debra Landaverde RN Other Provider Active Team Status: Inactive Member Role Status Dates Adelaida Carrion Primary Care Provider Active Jace Graham MD Attending Provider Active Supplier Engineer Relationship Specialty Start Date End Date José Luis Roberts MD [address] [place] [address] PCP - General Family Medicine 05/18/23 Adelaida Carrion NP [address] [place] [address] Referring Physician Nurse Practitioner 10/14/22 Supplier Engineer Relationship Specialty Start Date End Date José Luis Roberts MD [address] [place] [address] PCP - General Family Medicine 05/18/23 Adelaida Carrion NP [address] [place] [phone] Referring Physician Nurse Practitioner 10/14/22 Supplier Engineer Relationship Specialty Start Date End Date José Luis Roberts MD [address] [place] [phone] PCP - General Family Medicine 05/18/23 Adelaida Carrion NP [address] [place] [phone] Referring Physician Nurse Practitioner 10/14/22 Supplier Engineer Relationship Specialty Start Date End Date José Luis Roberts MD [address] [place] [phone] PCP - General Family Medicine 05/18/23 Adelaida Carrion NP Referring Physician Nurse Practitioner 10/14/22 Miriam Suarez DO [address] [place], [place] [id number] Referring Physician Neurology 06/29/23 [place] De [place] LPN Licensed Practical Nurse Family Medicine 12/18/23 Supplier Engineer Relationship Specialty Start Date End Date José Luis Roberts MD [address] [place] [phone] PCP - General Family Medicine 05/18/23 Adelaida Carrion NP Referring Physician Nurse Practitioner 10/14/22 Miriam Suarez DO [address] [place] [address] Referring Physician Neurology 06/29/23 [place] De [place] LPN Licensed Practical Nurse Family Medicine 12/18/23 Supplier Engineer Relationship Specialty Start Date End Date Unallocated, Johan Sierra MD [address] [place] [address] PCP - General Family Medicine 01/27/24 Miriam Suarez DO [address] [place] [address] Referring Physician Neurology 06/29/23 [place] De [place] LPN Licensed Practical Nurse Family Medicine 12/18/23 Adelaida Carrion, BRIANA [address] [place] [address] Nurse Practitioner Family Medicine 01/27/24 Supplier Engineer Relationship Specialty Start Date End Date Unallocated, Johan Sierra MD [address] [place] [address] PCP - General Family Medicine 01/27/24 Miriam Suarez DO [address] [place] [address] Referring Physician Neurology 06/29/23 [place] De [place] LPN Licensed Practical Nurse Family Medicine 12/18/23 Adelaida Carrion, BRIANA [address] [place] [phone] Nurse Practitioner Family Medicine 01/27/24 Supplier Engineer Relationship Specialty Start Date End Date José Luis Roberts MD [address] [place] [phone] PCP - General Family Medicine 02/02/24 Miriam Suarez DO [address] [place] [address] Referring Physician Neurology 06/29/23 [place] De [place] LPN Licensed Practical Nurse Family Medicine 12/18/23 Adelaida Carrion, BRIANA [address] [place] [address] Nurse Practitioner Family Medicine 01/27/24 Supplier Engineer Relationship Specialty Start Date End Date José Luis Roberts MD [address] [place] [phone] PCP - General Family Medicine 02/02/24 Miriam Suarez DO [address] [place], [place] [id number] Referring Physician Neurology 06/29/23 Adelaida Carrion, BRIANA [address] [place] [address] Nurse Practitioner Family Medicine 01/27/24 Bong Rosado MA Family Medicine 02/12/24 Supplier Engineer Relationship Specialty Start Date End Date José Luis Roberts MD [address] [place] [phone] PCP - General Family Medicine 02/02/24 Miriam Suarez DO [address] [place] [address] Referring Physician Neurology 06/29/23 Adelaida Carrion NP [address] [place] [address] Nurse Practitioner Family Medicine 01/27/24 Bong Rosado MA Family Medicine 02/12/24 Supplier Engineer Relationship Specialty Start Date End Date José Luis Roberts MD [address] [place] [phone] PCP - General Family Medicine 02/02/24 Miriam Suarez DO [address] [place], [place] [id number] Referring Physician Neurology 06/29/23 Adelaida Carrion NP [address] [place] [address] Nurse Practitioner Family Medicine 01/27/24 Bong Rosado MA Family Medicine 02/12/24 Supplier Engineer Relationship Specialty Start Date End Date José Luis Roberts MD [address] [place] [address] PCP - General Family Medicine 02/02/24 Miriam Suarez DO [address] [place], [place] [id number] Referring Physician Neurology 06/29/23 Adelaida Carrion NP [address] [place] [address] Nurse Practitioner Family Medicine 01/27/24 Bong Rosado MA Family Medicine 02/12/24 Supplier Engineer Relationship Specialty Start Date End Date José Luis Roberts MD [address] [place] [address] PCP - General Family Medicine 02/02/24 Miriam Suarez DO [address] [place] [address] Referring Physician Neurology 06/29/23 Adelaida Carrion NP [address] [place] [address] Nurse Practitioner Family Medicine 01/27/24 Bong Rosado MA Family Medicine 02/12/24 Supplier Engineer Relationship Specialty Start Date End Date José Luis Roberts MD [address] [place] [address] PCP - General Family Medicine 02/02/24 Miriam Suarez DO [address] [place], [place] [id number] Referring Physician Neurology 06/29/23 Adelaida Carrion, BRIANA [address] [place] [address] Nurse Practitioner Family Medicine 01/27/24 Bong Rosado MA Family Medicine 02/12/24 Supplier Engineer Relationship Specialty Start Date End Date José Luis Roberts MD [address] [place] [address] PCP - General Family Medicine 02/02/24 Miriam Suarez DO [address] [place] [address] Referring Physician Neurology 06/29/23 Adelaida Carrion NP [address] [place] [address] Nurse Practitioner Family Medicine 01/27/24 Bong Rosado MA Family Medicine 02/12/24 Supplier Engineer Relationship Specialty Start Date End Date José Luis Roberts MD [address] [place] [address] PCP - General Family Medicine 02/02/24 Miriam Suarez DO [address] [place], [place] [address] Referring Physician Neurology 06/29/23 Adelaida Carrion NP [address] [place] [address] Nurse Practitioner Family Medicine 01/27/24 Bong Rosado MA Family Medicine 02/12/24 Supplier Engineer Relationship Specialty Start Date End Date José Luis Roberts MD [address] [place] [address] PCP - General Family Medicine 02/02/24 Miriam Suarez DO [address] [place], [place] [id number] Referring Physician Neurology 06/29/23 Adelaida Carrion NP [address] [place] [address] Nurse Practitioner Family Medicine 01/27/24 Bong Rosado MA Family Medicine 02/12/24 Supplier Engineer Relationship Specialty Start Date End Date José Luis Roberts MD [address] [place] [address] PCP - General Family Medicine 02/02/24 Miriam Suarez DO [address] [place] [address] Referring Physician Neurology 06/29/23 Adelaida Carrion NP [address] [place] [address] Nurse Practitioner Family Medicine 01/27/24 Bong Rosado MA Family Medicine 02/12/24 Supplier Engineer Relationship Specialty Start Date End Date José Luis Roberts MD [address] [place] [address] PCP - General Family Medicine 02/02/24 Miriam Suarez DO [address] [place] [address] Referring Physician Neurology 06/29/23 Adelaida Carrion NP [address] [place] [address] Nurse Practitioner Family Medicine 01/27/24 Bong Rosado MA Family Medicine 02/12/24 Supplier Engineer Relationship Specialty Start Date End Date José Luis Roberts MD [address] [place] [address] PCP - General Family Medicine 05/18/23 Adelaida Carrion NP Referring Physician Nurse Practitioner 10/14/22 Miriam Suarez DO [address] [place] [address] Referring Physician Neurology 06/29/23 Mathew Parra LPN Licensed Practical Nurse Family Medicine 07/23/23 Supplier Engineer Relationship Specialty Start Date End Date José Luis Roberts MD [address] [place] [address] PCP - General Family Medicine 05/18/23 Adelaida Carrion NP Referring Physician Nurse Practitioner 10/14/22 Miriam Suarez DO [address] [place], [place] [address] Referring Physician Neurology 06/29/23 Mathew Parra LPN Licensed Practical Nurse Family Medicine 07/23/23 Supplier Engineer Relationship Specialty Start Date End Date José Luis Roberts MD [address] [place] [address] PCP - General Family Medicine 05/18/23 Adelaida Carrion NP Referring Physician Nurse Practitioner 10/14/22 Miriam Suarez DO [address] [place], [place] [address] Referring Physician Neurology 06/29/23 Mathew Parra LPN Licensed Practical Nurse Family Medicine 07/23/23 Supplier Engineer Relationship Specialty Start Date End Date José Luis Roberts MD [address] [place] [address] PCP - General Family Medicine 05/18/23 Adelaida Carrion NP Referring Physician Nurse Practitioner 10/14/22 Miriam Suarez DO [address] [place], [place] [phone] Referring Physician Neurology 06/29/23 Mathew Parra LPN Licensed Practical Nurse Family Medicine 07/23/23 Supplier Engineer Relationship Specialty Start Date End Date José Luis Roberts MD [address] [place] [address] PCP - General Family Medicine 05/18/23 Adelaida Carrion NP Referring Physician Nurse Practitioner 10/14/22 Miriam Suarez DO [address] [place] [address] Referring Physician Neurology 06/29/23 [place] De [place] LPN Licensed Practical Nurse Family Medicine 12/18/23 Supplier Engineer Relationship Specialty Start Date End Date José Luis Roberts MD [address] [place] [address] PCP - General Family Medicine 05/18/23 Adelaida Carrion NP Referring Physician Nurse Practitioner 10/14/22 Miriam Suarez DO [address] [place], [place] [address] Referring Physician Neurology 06/29/23 [place] De [place] LPN Licensed Practical Nurse Family Medicine 12/18/23 Supplier Engineer Relationship Specialty Start Date End Date José Luis Roberts MD [address] [place] [address] PCP - General Family Medicine 05/18/23 Adelaida Carrion, BRIANA Referring Physician Nurse Practitioner 10/14/22 Miriam Suarez DO [address] [place] [address] Referring Physician Neurology 06/29/23 [place] De [place] LPN Licensed Practical Nurse Family Medicine 12/18/23 Supplier Engineer Relationship Specialty Start Date End Date José Luis Roberts MD [address] [place] [address] PCP - General Family Medicine 02/02/24 Miriam Suarez DO [address] [place] [address] Referring Physician Neurology 06/29/23 Adelaida Carrion, BRIANA [address] [place] [address] Nurse Practitioner Family Medicine 01/27/24 Bong Rosado MA Family Medicine 02/12/24 Supplier Engineer Relationship Specialty Start Date End Date José Luis Roberts MD [address] [place] [address] PCP - General Family Medicine 02/02/24 Miriam Suarez DO [address] [place] [address] Referring Physician Neurology 06/29/23 Adelaida Carrion NP [address] [place] [address] Nurse Practitioner Family Medicine 01/27/24 Bong Rosado MA Family Medicine 02/12/24 Supplier Engineer Relationship Specialty Start Date End Date José Luis Roberts MD [address] [place] [address] PCP - General Family Medicine 02/02/24 Miriam Suarez DO [address] [place] [address] Referring Physician Neurology 06/29/23 Adelaida Carrion NP [address] [place] [address] Nurse Practitioner Family Medicine 01/27/24 Bong Rosado [...] BE BASED ON THE PRIMARY CLINICAL RECORDS. [employer] [facility] provides no warranty or guarantee of the accuracy or completeness of information in this document.
[2024-05-23 07:19] VITALS: BP 148/97; PULSE 68; TEMP 36.7; O2SAT 100
[2024-05-23 08:31] VITALS: BP 136/80; PULSE 57; O2SAT 97
[2024-05-23 08:32] VITALS: BP 144/85; PULSE 60; O2SAT 95
[2024-05-23] MEDS: LIDOCAINE HCL 2% 400 MG/20 ML MDV INJ (08:36)
[2024-05-23] MEDS: BUPIVACAINE HCL 0.25% PF 25 MG/10 ML VIAL 8 ML INJ (08:36)
--- NOTE | 2024-05-23 08:36 | W.PM.PROCNOT ---
Date of procedure: 05/23/24 Pre-op diagnosis: Pain due to lumbar spondylosis without myelopathy Post-op diagnosis: same as pre-op Procedure: Procedure: Bilateral L1-2, L2-3 medial branch block Medications: Bupivacaine 0.25% 6cc The patient was seen and examined in the preoperative holding area.? An informed consent was obtained and placed on the chart.? The patient was brought to the medical procedure unit and placed in the prone position.? A timeout was completed verifying correct patient, procedure site, positioning, plan, and special equipment.? Using aseptic technique, the needle was placed at left L1. Under direct fluoroscopic visualization a Quincke-tipped spinal needle was advanced to the junction of the superior articulating process with the transverse process at the designated medial branch segment.? Preceded by negative aspiration, the above-mentioned injectate was placed in 1 mL aliquots.? The procedure was repeated at left L2, 3.? The needle was removed and insertion site was covered. The same procedure, at the same levels, was completed on the right side. The patient was taken to the postprocedural recovery area and monitored for an appropriate length of time before found suitable for discharge in the company of a responsible adult.? Anesthesia: Local Surgeon: Syeda Mancuso Pathology: none sent Condition: stable Disposition: no change
== END 2024-05-23 08:40 | disposition home or self-care (01) ==
PROVIDERS: PCP Nurse Practitioner; Visit Provider Anesthesiology
DX: M47.816 Spondylosis without myelopathy or radiculopathy, lumbar region (principal)
CPT/HCPCS: 64493; 64494; J0665

== ENCOUNTER 2024-05-26 10:41 | Outpatient (OUT) | payer MEDICARE, SELFPAY ==
--- NOTE | 2024-05-26 11:24 | PM.CN ---
Consult Note: HPI Data of Consult Patient: known to practice within the last 3 years Requesting Physician: Bhakti Culp NP Primary Care Provider: Adelaida Carrion NP Consult Narrative Reason for consult: f/u Narrative: Nasim Ingram a 63 year old female with longstanding low back pain presents for evaluation. has engaged in provider guided HEP > 6 weeks wihout benefit, failed tylenol heat and ice, cannot utilize NSAIDs with hx of gastric bypass. currently utilizing gabapentin, tizanidine, duloxetine with mild benefit, denies side effects. recently underwent bilateral L1/2 L2/3 MBB #1 and #2 with 100% improvement in pain immediately following and hours after the injection, preop pain up to 8/10 post op pain 0/10. cc:: CC: Bhakti Culp NP Review of Systems ROS Status of ROS 10 or more systems reviewed and unremarkable except as noted in history and below Musculoskeletal Reports: back pain PFSH PFS Medical History FH: bariatric surgery ?Z84.89 - Family history of other specified conditions (ICD-10) Upper back pain ?M54.9 - Dorsalgia, unspecified (ICD-10) Osteoarthritis ?M19.90 - Unspecified osteoarthritis, unspecified site (ICD-10) Neck pain ?M54.2 - Cervicalgia (ICD-10) Low back pain ?M54.50 - Low back pain, unspecified (ICD-10) Fibromyalgia ?M79.7 - Fibromyalgia (ICD-10) Bipolar 1 disorder ?F31.9 - Bipolar disorder, unspecified (ICD-10) Acid reflux ?K21.9 - Gastro-esophageal reflux disease without esophagitis (ICD-10) Obesity ?E66.9 - Obesity, unspecified (ICD-10) Sleep apnea ?G47.30 - Sleep apnea, unspecified (ICD-10) Heart murmur ?R01.1 - Cardiac murmur, unspecified (ICD-10) High cholesterol ?E78.00 - Pure hypercholesterolemia, unspecified (ICD-10) Hypertension ?I10 - Essential (primary) hypertension (ICD-10) Surgical History S/P dilatation and curettage ?Z98.890 - Other specified postprocedural states (ICD-10) H/O breast biopsy ?Z98.890 - Other specified postprocedural states (ICD-10) S/P ORIF (open reduction internal fixation) fracture ?Z98.890 - Other specified postprocedural states (ICD-10) ?Z87.81 - Personal history of (healed) traumatic fracture (ICD-10) Hx of laparoscopic gastric banding ?Z98.84 - Bariatric surgery status (ICD-10) History of tonsillectomy and adenoidectomy ?Z90.89 - Acquired absence of other organs (ICD-10) History of appendectomy ?Z90.49 - Acquired absence of other specified parts of digestive tract (ICD-10) History of hemilaminectomy ?Z98.890 - Other specified postprocedural states (ICD-10) History of cholecystectomy ?Z90.49 - Acquired absence of other specified parts of digestive tract (ICD-10) Previous section ?Z98.891 - History of uterine scar from previous surgery (ICD-10) Social History Smoking status: Former smoker Little interest or pleasure in doing things: not at all Feeling down, depressed, or hopeless: not at all Meds Home Medications and Allergies Home Medications ?Medication ?Instructions ?Recorded ?Confirmed ?Type amlodipine 10 mg tablet (Norvasc) 10 mg PO DAILY 09/10/22 05/23/24 History biotin 1 mg capsule 5 mg PO DAILY 09/10/22 05/23/24 History cariprazine 4.5 mg capsule 4.5 mg PO Q24H 09/10/22 05/23/24 History (Vraylar) cetirizine 10 mg tablet (24Hour 10 mg PO DAILY PRN allergy symptoms 09/10/22 05/23/24 History Allergy) clonazepam 1 mg tablet 1 mg PO Q12H 09/10/22 05/23/24 History duloxetine 60 mg capsule,delayed 60 mg PO BID 09/10/22 05/23/24 History release ferrous sulfate 325 mg (65 mg 325 mg PO BID 09/10/22 05/23/24 History iron) tablet (FeroSul) losartan 50 mg tablet (Cozaar) 100 mg PO DAILY 09/10/22 05/23/24 History magnesium 200 mg tablet 400 mg PO QDAY 09/10/22 05/23/24 History melatonin 12 mg tablet 12 mg PO .HS PRN sleep 09/10/22 05/23/24 History omeprazole 20 mg capsule,delayed 20 mg PO QDAY 09/10/22 05/23/24 History release ropinirole 4 mg tablet 4 mg PO QDAY 09/10/22 05/23/24 History trazodone 150 mg tablet 150 mg PO .HS 09/10/22 05/23/24 History tizanidine 2 mg tablet 2 mg PO TID PRN muscle spasticity 10/01/23 05/23/24 Rx #90 tabs fluticasone propionate 50 1 spray intranasal DAILY PRN 10/20/23 05/23/24 History mcg/actuation nasal allergy symptoms spray,suspension (Flonase Allergy Relief) spironolactone 50 mg tablet 50 mg PO DAILY 10/20/23 05/23/24 History gabapentin 300 mg capsule 300 mg PO BID 11/03/23 05/23/24 History calcium citrate 200 mg PO QID 11/04/23 05/23/24 History carvedilol 12.5 mg tablet 12.5 mg PO Q12H 11/04/23 05/23/24 History multivitamin 1 tab PO DAILY 11/04/23 05/23/24 History lacosamide 50 mg tablet (Vimpat) 50 mg PO BID 05/09/24 05/23/24 History Allergies Allergy/AdvReac Type Severity Reaction Status Date / Time levetiracetam (From Keppra) Allergy Severe Unknown Verified 05/23/24 07:25 adhesive Allergy Intermediate Blister Verified 05/23/24 07:25 Penicillins Allergy Intermediate Unknown Verified 05/23/24 07:25 tetracycline Allergy Intermediate Unknown Verified 05/23/24 07:25 eszopiclone (From Lunesta) Allergy Unknown Verified 05/23/24 07:25 milnacipran (From Savella) AdvReac Intermediate Agitated Verified 05/23/24 07:25 prochlorperazine (From AdvReac Intermediate Agitated Verified 05/23/24 07:25 Compazine) Exam Constitutional Documenting provider has reviewed patient's vital signs: yes Common normals: no apparent distress, oriented x3, healthy appearing, alert and well nourished General appearance: cooperative HENMT Common normals: normocephalic, hearing grossly normal bilaterally and moist oral mucous membranes Head and scalp: normocephalic Eye Common normals: PERRL Pupil: PERRL Neck & C-Spine Common normals: full ROM General: normal visual inspection Chest Common normals: inspection of chest normal Respiratory Common normals: normal respiratory effort, no retractions and no use of accessory muscles Back & Pelvis Thoracic spine/upper back: ROM limited Lumbar spine/lower back: ROM limited, pain with ROM, lumbar spinal tenderness, paraspinal muscle tenderness and straight leg raise negative bilaterally; no paraspinal muscle spasm Other: positive facet loading L1-4 left greater than right strength 5/5 in BLE sensation intact BLE Neuro Common normals: oriented x3, CN's II-XII intact bilaterally, moves all extremities, no focal motor deficits, no sensory deficits noted and deep tendon reflexes 2+ bilaterally Sensorium/orientation: alert Motor exam: strength 5/5 throughout and no movement abnormalities noted Psych Common normals: mental status grossly normal, thought process normal, cooperative, affect normal, speech normal and activity/motor behavior normal Speech: normal speech Thought process: normal thought process Results Additional Findings Additional findings: If on a controlled substance or opioids, I have checked an [place] report on this patient and there are no aberrancies noted in the prescribing history.??If on a controlled substance or opioid a drug screen was completed and reviewed within the last year, and if there has not been a drug screen completed we ordered one today to monitor higher risk, state monitored pain medication use. As part of providing excellent, safe, comprehensive care, the following was completed at our patient's visit: 1. A medication reconciliation and review to ensure accurate knowledge of current/active medications, including asking our patients to inform us about any htaz-vyi-yxeudei medications or herbal remedies/nutritional supplements/alternative remedies. 2. A review to specifically ensure our patients have had annual screening for screening for depression, screening for tobacco use, and screening for unhealthy alcohol use. For concerning screenings had a discussion with the patient, provided patient education, and recommended follow-up with primary care provider when appropriate. If patient noted with a risk of falling, they received education on strength, gait, and balance training to prevent future risk of falling. Portions of this note may have been carried over from the previous visit and updated as appropriate. Please note this office utilizes paper charting in addition to the electronic medical record. A list of current medications, vitals, and PMH is available there as the clinical staff outside of myself do not have access to [employer] charting during the clinic day operations. As part of providing quality comprehensive care the current medications, vitals, and PMH were reviewed in the paper chart. Assessment and Plan Assessment and Plan (1) Lumbar spondylosis: Assessment and Plan: The patient has had over 3 months of moderate to severe back pain with functional impairment and inadequate response to conservative care including NSAIDS (unless there are contraindication such as concurrent blood thinners), multiple oral or topical pain medications, and home exercise program/physical therapy.? Patient has completed >6 weeks of guided home exercise program and/or formal physical therapy program without relief of their symptoms.? I have reviewed the imaging of the lumbar spine and no red flags were identified.? The imaging reveals radiographic findings consistent with lumbar spondylosis The Oswestry Disability Index was completed, and the patient scored a 47%.? The patient noted the following:?? moderate to severe pain, pain impacting ADLs, pain impacting ability to sit and walk for longer than 15 minutes, pain interrupting sleep social life and travel We discussed the risks and benefits of the procedure with the patient. ?The procedure will be completed with fluoroscopic guidance.? Plan left L1-2 L2-3 facet medial branch RFA under fluoroscopy with IV sedation due to pt reported severe discomfort and difficulty tolerating procedures without IV sedation. historically we have utilized IV sedation to decrease the risks of the procedure and limit patients movement due to discomfort of the procedures. continue current medications continue HEP as tolerated f/u 1 month after RFA
== END 2024-05-26 10:42 | disposition home or self-care (01) ==
LOC: PM 10:41
PROVIDERS: PCP Nurse Practitioner; Visit Provider Nurse Practitioner
DX: M47.816 Spondylosis without myelopathy or radiculopathy, lumbar region (principal)
CPT/HCPCS: G0463

== ENCOUNTER 2024-06-07 06:17 | Day surgery (SDC) | payer MEDICARE, SELFPAY ==
--- OUTSIDE RECORDS SUMMARY | 2024-06-07 06:21 | XMS_ITS | CCD ---
Author Organization [facility] Care Team Providers Care Food Taster Name Role Phone EBRAHEIM, SUKI Admitting Unavailable EBRAHEIM, SUKI Attending Unavailable AICHHOLZ, ADELAIDA Referring Unavailable AICHHOLZ, ADELAIDA Primary Care Unavailable [place] Procedure Practitioner Unavailab SUKI Jacob Surgeon Unavailable [place] Procedure Practitioner Unavailab CHAPARRITA Goncalves Surgeon Unavailable BRIDGETTE MACEDO Admitting Unavailable BRIDGETTE MACEDO Attending Unavailable AICHHOLZ, SUPERVISOR BLASTING ADELAIDA Primary Care Unavailable NIXON ., DR FINA Iverson Admitting Unavailable NIXON ., DR FINA Iverson Attending Unavailable AICHHOLZ, SUPERVISOR BLASTING ADELAIDA Primary Care Unavailable MCDANIEL ., ZELDA Consulting Unavailable LAKSHMIPATHY ., NARENDRANATH Consulting Paula vailable LAKSHMIPATHY ., NARENDRANATH Admitting Paula vailable LAKSHMIPATHY ., NARENDRANATH Attending Paula vailable AICHHOLZ, SUPERVISOR BLASTING ADELAIDA Primary Care Unavailable LAKSHMIPATHY ., NARENDRANATH Consulting Paula vailable AICHHOLZ, SUPERVISOR BLASTING ADELAIDA Primary Care Unavailable MARKER ., DR CHAUDHRY Admitting Unavailable MARKER ., DR CHAUDHYR Attending Unavailable MARKER ., DR CHAUDHRY Consulting Unavailable AICHHOLZ, SUPERVISOR BLASTING ADELAIDA Admitting Unavailable AICHHOLZ, SUPERVISOR BLASTING ADELAIDA Attending Unavailable AICHHOLZ, SUPERVISOR BLASTING ADELAIDA Primary Care Unavailable NIXON ., DR FINA Iverson Admitting Unavailable NIXON ., DR FINA Iverson Attending Unavailable AICHHOLZ, SUPERVISOR BLASTING ADELAIDA Primary Care Unavailable MCDANIEL ., ZELDA Consulting Unavailable NIXON ., DR FINA Iverson Admitting Unavailable NIXON ., DR FINA Iverson Attending Unavailable AICHHOLZ, SUPERVISOR BLASTING ADELAIDA Primary Care Unavailable MCDANIEL ., ZELDA Consulting Unavailable AICHHOLZ, SUPERVISOR BLASTING ADELAIDA Admitting Unavailable AICHHOLZ, SUPERVISOR BLASTING ADELAIDA Attending Unavailable AICHHOLZ, SUPERVISOR BLASTING ADELAIDA Primary Care Unavailable AICHHOLZ, SUPERVISOR BLASTING ADELAIDA Consulting Unavailable AICHOLZ, SUPERVISOR BLASTING ADELAIDA Admitting Unavailable AICHHOLZ, SUPERVISOR BLASTING ADELAIDA Attending Unavailable AICHOLZ, [facility] ADELAIDA Primary Care Unavailable AICHHOLZ, SUPERVISOR BLASTING ADELAIDA Consulting Unavailable MISC, DR COTE Admitting Unavailable MISC, DR COTE Attending Unavailable AICHOLZ, [facility] ADELAIDA Primary Care Unavailable AICHHOLZ, SUPERVISOR BLASTING ADELAIDA Consulting Unavailable ELYSSA, DR COTE Consulting Unavailable STARR, DR KINGSLEY Atkins Consulting Unavailable NIXON ., DR FINA Iverson Admitting Unavailable NIXON ., DR FINA Iverson Attending Unavailable AICHOLZ, [facility] ADELAIDA Primary Care Unavailable MCDANIEL ., ZELDA Consulting Unavailable NIXON ., DR FINA Iverson Admitting Unavailable NIXON ., DR FINA Iverson Attending Unavailable [facility] Primary Care Unavailable NIXON ., DR FINA Iverson Consulting Unavailable OMID LAY Consulting Unavailable NIXON ., DR FINA Iverson Admitting Unavailable NIXON ., DR FINA Iverson Attending Unavailable [facility], [facility] Primary Care Unavailable MCDANIEL ., ZELDA Consulting Unavailable [facility], [facility] Primary Care Unavailable HALKER ., ARIAN Admitting Unavailable HALKER ., ARIAN Attending Unavailable LAKSHMIPATHY ., NARENDRANATH Consulting Paula vailable HALKER ., ARIAN Consulting Unavailable LAKSHMIPATHY ., NARENDRANATH Admitting Paula vailable LAKSHMIPATHY ., NARENDRANATH Attending Paula vailable [facility], [facility] Primary Care Unavailable LAKSHMIPATHY ., NARENDRANATH Consulting Paula vailable AICHOLZ, SUPERVIS[employer] BLAST[employer] ADELAIDA Admitting Unavailable AICHOLZ, SUPERVISOR BLASTING ADELAIDA Attending Unavailable AICHOLZ, SUPERVISOR BLASTING ADELAIDA Primary Care Unavailable AICHHOLZ, SUPERVISOR BLASTING ADELAIDA Consulting Unavailable BRIDGETTE MACEDO Admitting Unavailable BRIDGETTE MACEDO Attending Unavailable AICHOLZ, SUPERVISOR BLASTING ADELAIDA Primary Care Unavailable STARR, DR KINGSLEY Atkins Consulting Unavailable BRIDGETTE MACEDO Consulting Unavailable GILMER NEVES Admitting Unavailable GILMER NEVES Attending Unavailable PURA, GILMER Consulting Unavailable AICHOLZ, SUPERVIS[employer] BLASTING ADELAIDA Primary Care Unavailable AICHOLZ, SUPERVISOR BLASTING ADELAIDA Primary Care Unavailable DR WILLI RINALDI Admitting Unavailable DEEJAY, DR WILLI Atkins Attending Unavailable DR WILLI RINALDI Consulting Unavailable AICHOLZ, SUPERVISOR BLASTING ADELAIDA Primary Care Unavailable ALMAZ ., DANNY Admitting Unavailable ALMAZ ., DANNY Attending Unavailable DR KINGSLEY CLEMENTS Consulting Unavailable ALMAZ ., DANNY Consulting Unavailable LAKSHMIPATHY ., NARENDRANATH Admitting Paula vailable LAKSHMIPATHY ., NARENDRANATH Attending Paula vailable AICHHOLZ, SUPERVISOR BLASTING ADELAIDA Primary Care Unavailable AICHHOLZ, SUPERVISOR BLASTING ADELAIDA Admitting Unavailable AICHHOLZ, SUPERVISOR BLASTING ADELAIDA Attending Unavailable AICHHOLZ, SUPERVISOR BLASTING ADELAIDA Primary Care Unavailable AICHHOLZ, SUPERVISOR BLASTING ADELAIDA Admitting Unavailable AICHHOLZ, SUPERVISOR BLASTING ADELAIDA Attending Unavailable AICHHOLZ, SUPERVISOR BLASTING ADELAIDA Primary Care Unavailable AICHHOLZ, SUPERVISOR BLASTING ADELAIDA Consulting Unavailable ZIEBER, DR KINGSLEY Atkins Consulting Unavailable HALKER ., ARIAN Admitting Unavailable HALKER ., ARIAN Attending Unavailable AICHHOLZ, SUPERVISOR BLASTING ADELAIDA Primary Care Unavailable Aichholz, Adelaida J Primary Care Provider MD Gaudencio Monk Admit Provider MD Gaudencio Monk Attending Provider JOHANN Vieira Other Provider Unavailable JOHANN Pina Other Provider Unavailable JOHANN Hurtado Other Provider Unavailable JOHANN Crooks Other Provider Unavailable JOHANN Mejias Other Provider Unavailable JOHANN Kim Other Provider Unavailable MD Walker Pringle Other Provider Dilans, HOTEL HOUSEMAN Adelaida Huddleston Other Provider DO Jessica Murillo Other Provider MD Obdulio Bragg Other Provider DO Joon Cristina Other Provider MD Torin Robert Other Provider MD Dawn Barrera Other Provider Karlene ANP- Mari Other Provider MD Sofi Almanzar Other Provider [phone] MD Sharad Gallegos Other Provider MD [...] Rosemary Kirkland Unavailable Jace Graham Unavailable Adelaida Cariron Primary Care Provider MD Jace Graham Attending Provider Sheyla COFFEE FARMER, Adelaida Unavailable José Luis Roberts MD Primary Care Provider Sheyla COFFEE FARMER, Adelaida Unavailable Daniela GRAHAM, Miriam Unavailable Moises CAMPBELL, Diana Unavailable Unavailable Unallocated , Familias Provider Primary Care Elizabeth kellee Aicjosue COFFEE FARMER, Adelaida Unavailable José Luis Roberts MD Primary Care Provider [phone] Alonzo STARK, Bong Unavailable Unavailable Aida VALEN, Mathew Unavailable Unavailable AICHHOLZ, ADELAIDA Attending Unavailable LOWE, JUANY Attending Unavailable AICHHOLZ, ADELAIDA Attending Unavailable AICHHOLZ, ADELAIDA Attending Unavailable AICHHOLZ, ADELAIDA Attending Unavailable AICHHOLZ, ADELAIDA Attending Unavailable AICHHOLZ, ADELAIDA Attending Unavailable WINDNASONAM VILLASENOR Attending Unavailable AICHHOLZ, ADELAIDA Attending Unavailable WINDNASONAM VILLASNEOR Attending Unavailable GILLMOR, JUANY Attending Unavailable AICHHOLZ, ADELAIDA Attending Unavailable AICHHOLZ, ADELAIDA Attending Unavailable AICHHOLZ, ADELAIDA Attending Unavailable KOFIE, JUANY Attending Unavailable RACHEL MITCHELL Attending Unavailable DAVID FOSTER Attending Unavailable JUANY LEGGETT Referring Unavailable AICHHOLZ, ADELAIDA Attending Unavailable RACHEL MITCHELL Referring Unavailable Giwellingtonitis , Syeda King Attending Unavailable Giedraitis , Andrius King Attending Unavailable Giedraitis , Andrius Vytmarta Attending Unavailable Giedraitis , Andrius Vytautargelia Attending Unavailable Eduardo Monk Admitting Unavailab Eduardo Connolly Attending Unavailab le Aichholz, Adelaida J Primary Care Unavailable Aichholz, Adelaida J Primary Care Unavailable [place] [...] [facility] (20 sources) Tetracycline; Translations: [TETRACYCLINE] Drug Allergy 04-06-19 13 Hives, Unknown [facility] (4 sources) Penicillins Drug allergy (disorder) 04-06-19 13 Unknown Reaction [facility] Repository (20 sources) levETIRAcetam; Translations: [levetiracetam] Drug Allergy 12-13-19 22 Hallucinations , Other [facility] (20 sources) milnacipran; Translations: [milnacipran] Drug Allergy 12-13-19 22 hives, Hallucinations , Other, Unknown [facility] (20 sources) Prochlorperazin e; Translations: [prochlorperazi ne] Drug Allergy 12-13-19 22 Unknown, Other [facility] (2 sources) Penicillin G Drug Allergy as a child [employer] Other (2 sources) Tetracaine Drug Allergy Unknown [employer] Other (20 sources) Penicillins Drug Intolerance 12-13-19 22 Anaphylaxis [facility] (20 sources) Other Propensity to adverse reactions 12-13-19 22 Other [facility] (20 sources) Wound Dressing Adhesive Drug Allergy 09-20-19 23 Rash, Unknown [facility] (20 sources) Eszopiclone Drug Allergy 09-21-19 24 Hallucinations , Anaphylaxis [facility] (1 source) Penicillin Drug Allergy 11 [facility] Repository (1 source) Penicillins Drug allergy (disorder) 03-02-20 [facility] Repository (1 source) Tetracaine Drug Allergy 03-02-20 [facility] Repository Medications Current Medications Medication [...] 5 MG tabl et Pt taking OTC ([employer]) Active biotin 1 MG caps ule Biotin [...] (CITRACAL + D PO) Pt taking OTC (Gruvi) Active Calcium Citrate- Vitamin D (CITRACAL + [...] 0 Active lacosamide 50 mg oral tablet (13 sources) Anti-epileptic Agent Start: End: take 1 [...] sources) Magnesium 400 MG capsule Pt taking OTC([employer]) Active Magnesium 400 MG capsule magnesium 0 [...] s-Minerals (BARIATRIC MULTIVITAMINS/IRON PO) Pt taking OTC ([employer]) Active Multiple Vitamin s-Minerals (BARIATRIC MULTIVITAMINS/IRON PO) Bariatric Multivitamins/Iron 0 Active Bzkgyuaqxjvj-Til-Mpuz-Fa-Vit K (Bariatric Multivitamins) 45 mg iron- 800 mcg-120 mcg Capsule (2 sources) Start: 11-17-2022 take 1 capsule by mouth once daily Ottaahzybdze-Akl-Ckvc-Fa-Vit K (Bariatric Multivitamins) 45 mg iron- 800 mcg-120 mcg Capsule Active 1 CAP PO Daily November 16, 2022 11:00pm Start: 11-17-2022 take 1 capsule by mo uth once daily Zcrxzhwtulwc-Khv-Dhuk-Fa-Vit K (Bariatri c Multivitamins) 45 mg iron- 800 mcg-120 mcg Capsule Active 1 CAP PO Daily November 17, 2022 12:00am nystatin [id number] unt/ml topical cream (20 sources) Polyene Antifungal Start: 03-07-2024 nystatin (M ycostatin) cream 03/07/2024 Active nystatin (Mycost atin) [id number] UNIT/GM powder Apply 1 application topically in [...] Resolved : 03-16-2005-18-2023 Chronic Chronic kidney disease (8 sources) Chronic kidney disease stage 3A ; Translations: [Chronic kidney disease, stage 3a (HCC)] Onset: 05-12-1905-12-2024 Chronic Conduction disorders (13 sources) EKG: right bundle branch block; Translations: [...] 11-23-19 Resolved : 03-16-20 24 11-17-2022 Chronic Mycoses (20 sources) Candidiasis of skin [...] Chronic Other nutritional; endocrine; and metabolic disorders (12 sources) Body mass index 40+ - severely [...] nutritional; endocrine; and metabolic disorders (8 sources) Obesity caused by energy imbalance; Translations: [Morbid (severe) obesity due to excess calories] Onset: 03-25-2005-12-2024 Chronic Other upper respiratory disease (20 sources) Allergic rhinitis; Translations: [Allergic rhinitis, unspecified] Onset: 05-18-19 24 05-18-2023 Chronic Paralysis (20 sources) Right hemiparesis; Translations: [...] 05-18-2023 Episodic Other aftercare (1 source) Other correction (current) drug therapy; 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 Performed By: #### C BC, MG, CMP #### [facility] [address] [place] [address] [place] Basophils/100 WBC (Bld) 0.5 % Normal . [facility] Comment on above: Performed By: #### C BC, MG, CMP #### [facility] [address] [place] [address] [place] Eosinophils (Bld) [#/Vol] 0.2 10*3/uL Normal 0.0-0.45 [facility] Comment on above: Performed By: #### C BC, MG, CMP #### [facility] [address] [place] [address] [place] Eosinophils/100 WBC (Bld) 2.2 % Normal . [facility] Comment on above: Performed By: #### C BC, MG, CMP #### [address] Erythrocyte distribution width (RBC) [Ratio] 14.5 % Normal 11.9-15.3 [facility] Comment on above: Performed By: #### C BC, MG, CMP #### [address] Hematocrit (Bld) [Volume fraction] 43.0 % Normal 34.0-46.4 [facility] Comment on above: Performed By: #### C BC, MG, CMP #### [address] Hemoglobin (Bld) [Mass/Vol] 14.3 g/dL Normal 11.8-15.4 [facility] Comment on above: Performed By: #### C BC, MG, CMP #### [address] Lymphocytes (Bld) [#/Vol] 1.8 10*3/uL Normal 1.00-4.8 [facility] Comment on above: Performed By: #### C BC, MG, CMP #### [address] Lymphocytes/100 WBC (Bld) 18.9 % Normal . [facility] Comment on above: Performed By: #### C BC, MG, CMP #### [address] MCH (RBC) [Entitic mass] 29.0 pg Normal 24.7-34.3 [facility] Comment on above: Performed By: #### C BC, MG, CMP #### [address] MCV (RBC) [Entitic vol] 87.0 fL Normal 80-100 [facility] Comment on above: Performed By: #### C BC, MG, CMP #### [address] Mean Corpuscular HGB Conc 33.4 g/dL Normal 32.0-35.0 [facility] Comment on above: Performed By: #### C BC, MG, CMP #### [address] Monocytes (Bld) [#/Vol] 0.5 10*3/uL Normal 0.0-0.8 [facility] Comment on above: Performed By: #### C BC, MG, CMP #### [address] Monocytes/100 WBC (Bld) 5.5 % Normal . [facility] Comment on above: Performed By: #### C BC, MG, CMP #### [address] Neutrophils (Bld) [#/Vol] 7.0 10*3/uL Normal 1.8-7.7 [facility] Comment on above: Performed By: #### C BC, MG, CMP #### [address] Neutrophils/100 WBC (Bld) 72.9 % Normal . [facility] Comment on above: Performed By: #### C BC, MG, CMP #### [address] NRBC% 0.0 /100{WBC} Normal 0-0.5 [facility] Comment on above: Performed By: #### C BC, MG, CMP #### [address] Platelet mean volume (Bld) [Entitic vol] 8.9 fL Normal 6.3-10.7 [facility] Comment on above: Performed By: #### C BC, MG, CMP #### [place] [address] [place] Platelets (Bld) [#/Vol] 289 10*3/uL Normal 150-450 [facility] Comment on above: Performed By: #### C BC, MG, CMP #### [place] [address] [place] RBC (Bld) [#/Vol] 4.94 10*6/uL Normal 3.60-5.00 [facility] Comment on above: Performed By: #### C BC, MG, CMP #### [address] WBC (Bld) [#/Vol] 9.6 10*3/uL Normal 3.8-11.6 [facility] Comment on above: Performed By: #### C BC, MG, CMP #### [address] Comprehensive Metabolic Pane [place] 03-05-2024 Albumin [Mass/Vol] 4.4 g/dL Normal 3.5-5.7 [facility] Comment on above: Performed By: #### C BC, MG, CMP #### [address] Albumin/Globulin [Mass ratio] 1.3 {ratio} Normal [facility] Comment on above: Performed By: #### C BC, MG, CMP #### [address] ALP [Catalytic activity/Vol] 79 U/L Normal 34-104 [facility] Comment on above: Performed By: #### C BC, MG, CMP #### [address] ALT [Catalytic activity/Vol] 23 U/L Normal 7-52 [facility] Comment on above: Performed By: #### C BC, MG, CMP #### [address] Anion gap [Moles/Vol] 15.4 mmol/L High 6.0-15.0 [facility] Comment on above: Performed By: #### C BC, MG, CMP #### [address] AST [Catalytic activity/Vol] 36 U/L Normal 13-39 [facility] Comment on above: Performed By: #### C BC, MG, CMP #### [address] [place] [address] [place] Bilirubin [Mass/Vol] 0.4 mg/dL Normal 0.3-1.0 [facility] Comment on above: Performed By: #### C BC, MG, CMP #### [facility] [address] Calcium [Mass/Vol] 9.5 mg/dL Normal 8.6-10.3 [facility] Comment on above: Performed By: #### C BC, MG, CMP #### [facility] [address] [place] [address] [place] Chloride [Moles/Vol] 106 mmol/L Normal 98-107 [facility] Comment on above: Performed By: #### C BC, MG, CMP #### [address] CO2 [Moles/Vol] 23.1 mmol/L Normal 21.0-31.0 [facility] Comment on above: Performed By: #### C BC, MG, CMP #### [address] Creatinine [Mass/Vol] 0.96 mg/dL Normal 0.60-1.20 [facility] Comment on above: Performed By: #### C BC, MG, CMP #### [place] [address] [place] Creatinine Clr Calc Pharmacy 84.51 Normal [facility] Comment on above: Performed By: #### C BC, MG, CMP #### [place] [address] [place] GFR/1.73 sq M.predicted MDRD (S/P/Bld) [Vol rate/Area] mL/min/{1.73_m2} Normal [facility] Comment on above: Performed By: #### C BC, MG, CMP #### [address] Globulin (S) [Mass/Vol] 3.3 g/dL Normal [facility] Comment on above: Performed By: #### C BC, MG, CMP #### [address] Glucose [Mass/Vol] 133 mg/dL High 70-100 [facility] Comment on above: Result Comment: [place] Glucose Reference Range is dependent on time and content of last meal. Glucose of more than 200 mg/dL in a nonstressed, ambulatory subject supports the diagnosis of Diabetes Mellitus. ADA recommended reference range Performed By: #### C BC, MG, CMP #### [address] Potassium [Moles/Vol] 3.5 mmol/L Normal 3.5-5.1 [facility] Comment on above: Performed By: #### C BC, MG, CMP #### [address] Protein [Mass/Vol] 7.7 g/dL Normal 6.4-8.9 [facility] Comment on above: Performed By: #### C BC, MG, CMP #### [address] Sodium [Moles/Vol] 141 mmol/L Normal 136-145 [facility] Comment on above: Performed By: #### C BC, MG, CMP #### [address] Urea nitrogen [Mass/Vol] 18 mg/dL Normal 7-25 [facility] Comment on above: Performed By: #### C BC, MG, CMP #### [address] Magnesiumon 03-05-2024 Magnesium [Mass/Vol] 2.0 mg/dL Normal 1.9-2.7 [facility] Comment on above: Result Comment: PERF ORMED BY: [place] [address] PATHOLOGIST IRON CUTTER ADIEL AGUSTIN M.D. Performed By: #### C BC, MG, CMP #### [address] Complete Blood Count Auto Di ffon 03-04-2024 Basophils (Bld) [#/Vol] 0.1 10*3/uL Normal 0.0-0.2 [facility] Comment on above: Result Comment: PERF ORMED BY: [place] [address] PATHOLOGIST IRON CUTTER ADIEL AGUSTIN M.D. Performed By: #### C MP, MG, CBC #### [address] Basophils/100 WBC (Bld) 0.6 % Normal . [facility] Comment on above: Performed By: #### C MP, MG, CBC #### [address] Eosinophils (Bld) [#/Vol] 0.2 10*3/uL Normal 0.0-0.45 [facility] Comment on above: Performed By: #### C MP, MG, CBC #### [address] Eosinophils/100 WBC (Bld) 1.9 % Normal . [facility] Comment on above: Performed By: #### C MP, MG, CBC #### [place] [address] [place] Erythrocyte distribution width (RBC) [Ratio] 14.6 % Normal 11.9-15.3 [facility] Comment on above: Performed By: #### C MP, MG, CBC #### [address] Hematocrit (Bld) [Volume fraction] 43.5 % Normal 34.0-46.4 [facility] Comment on above: Performed By: #### C MP, MG, CBC #### [place] [address] [place] Hemoglobin (Bld) [Mass/Vol] 14.4 g/dL Normal 11.8-15.4 [facility] Comment on above: Performed By: #### C MP, MG, CBC #### [place] [address] [place] Lymphocytes (Bld) [#/Vol] 1.8 10*3/uL Normal 1.00-4.8 [facility] Comment on above: Performed By: #### C MP, MG, CBC #### [address] Lymphocytes/100 WBC (Bld) 18.0 % Normal . [facility] Comment on above: Performed By: #### C MP, MG, CBC #### [address] MCH (RBC) [Entitic mass] 28.8 pg Normal 24.7-34.3 [facility] Comment on above: Performed By: #### C MP, MG, CBC #### [address] MCV (RBC) [Entitic vol] 87.0 fL Normal 80-100 [facility] Comment on above: Performed By: #### C MP, MG, CBC #### [address] Mean Corpuscular HGB Conc 33.2 g/dL Normal 32.0-35.0 [facility] Comment on above: Performed By: #### C MP, MG, CBC #### [address] Monocytes (Bld) [#/Vol] 0.8 10*3/uL Normal 0.0-0.8 [facility] Comment on above: Performed By: #### C MP, MG, CBC #### [address] Monocytes/100 WBC (Bld) 8.2 % Normal . [facility] Comment on above: Performed By: #### C MP, MG, CBC #### [address] Neutrophils (Bld) [#/Vol] 7.3 10*3/uL Normal 1.8-7.7 [facility] Comment on above: Performed By: #### C MP, MG, CBC #### [address] Neutrophils/100 WBC (Bld) 71.3 % Normal . [facility] Comment on above: Performed By: #### C MP, MG, CBC #### [address] NRBC% 0.1 /100{WBC} Normal 0-0.5 [facility] Comment on above: Performed By: #### C MP, MG, CBC #### [address] Platelet mean volume (Bld) [Entitic vol] 8.8 fL Normal 6.3-10.7 [facility] Comment on above: Performed By: #### C MP, MG, CBC #### [address] Platelets (Bld) [#/Vol] 334 10*3/uL Normal 150-450 [facility] Comment on above: Performed By: #### C MP, MG, CBC #### [address] RBC (Bld) [#/Vol] 5.01 10*6/uL High 3.60-5.00 [facility] Comment on above: Performed By: #### C MP, MG, CBC #### [address] WBC (Bld) [#/Vol] 10.3 10*3/uL Normal 3.8-11.6 [facility] Comment on above: Performed By: #### C MP, MG, CBC #### [address] Comprehensive Metabolic Pane [place] 03-04-2024 Albumin [Mass/Vol] 4.5 g/dL Normal 3.5-5.7 [facility] Comment on above: Performed By: #### C MP, MG, CBC #### [address] Albumin/Globulin [Mass ratio] 1.4 {ratio} Normal [facility] Comment on above: Performed By: #### C MP, MG, CBC #### [facility] [address] ALP [Catalytic activity/Vol] 79 U/L Normal 34-104 [facility] Comment on above: Performed By: #### C MP, MG, CBC #### [facility] [address] ALT [Catalytic activity/Vol] 19 U/L Normal 7-52 [facility] Comment on above: Performed By: #### C MP, MG, CBC #### [address] Anion gap [Moles/Vol] 11.4 mmol/L Normal 6.0-15.0 [facility] Comment on above: Performed By: #### C MP, MG, CBC #### [address] AST [Catalytic activity/Vol] 37 U/L Normal 13-39 [facility] Comment on above: Performed By: #### C MP, MG, CBC #### [address] Bilirubin [Mass/Vol] 0.5 mg/dL Normal 0.3-1.0 [facility] Comment on above: Performed By: #### C MP, MG, CBC #### [address] Calcium [Mass/Vol] 9.6 mg/dL Normal 8.6-10.3 [facility] Comment on above: Performed By: #### C MP, MG, CBC #### [place] [address] [place] Chloride [Moles/Vol] 107 mmol/L Normal 98-107 [facility] Comment on above: Performed By: #### C MP, MG, CBC #### [facility] [address] [place] [address] [place] CO2 [Moles/Vol] 27.4 mmol/L Normal 21.0-31.0 [facility] Comment on above: Performed By: #### C MP, MG, CBC #### [address] Creatinine [Mass/Vol] 0.91 mg/dL Normal 0.60-1.20 [facility] Comment on above: Performed By: #### C MP, MG, CBC #### [address] Creatinine Clr Calc Pharmacy 90.12 Normal [facility] Comment on above: Performed By: #### C MP, MG, CBC #### [place] [address] [place] GFR/1.73 sq M.predicted MDRD (S/P/Bld) [Vol rate/Area] mL/min/{1.73_m2} Normal [facility] Comment on above: Performed By: #### C MP, MG, CBC #### [address] Globulin (S) [Mass/Vol] 3.2 g/dL Normal [facility] Comment on above: Performed By: #### C MP, MG, CBC #### [address] Glucose [Mass/Vol] 100 mg/dL Normal 70-100 [facility] Comment on above: Result Comment: [facility] Glucose Reference Range is dependent on time and content of last meal. Glucose of more than 200 mg/dL in a nonstressed, ambulatory subject supports the diagnosis of Diabetes Mellitus. ADA recommended reference range Performed By: #### C MP, MG, CBC #### [address] Potassium [Moles/Vol] 3.8 mmol/L Normal 3.5-5.1 [facility] Comment on above: Performed By: #### C MP, MG, CBC #### [address] Protein [Mass/Vol] 7.7 g/dL Normal 6.4-8.9 [facility] Comment on above: Performed By: #### C MP, MG, CBC #### [address] Sodium [Moles/Vol] 142 mmol/L Normal 136-145 [facility] Comment on above: Performed By: #### C MP, MG, CBC #### [facility] [address] Urea nitrogen [Mass/Vol] 15 mg/dL Normal 7-25 [facility] Comment on above: Performed By: #### C MP, MG, CBC #### [facility] [address] MR head/brain wo/w conon MR head/brain wo/w con [facility] [place] [address] [place] [address] MRI Report Signed Patient: Michelle Be MR#: [id number] : 1960 Acct:[id number] Age/Sex: 63 / F ADM Date: 03/03/24 Loc: Room: [address] [place] [address] Type: ADM IN Attending Dr: Delta Gan [...] Willi Guadalupe M.D.03/04/2024 2:32 PM Dictation Location: [place] [address] Transcribed By: MESHA 03/04/24 1432 Dictated By: Willi Guadalupe II, MD 03/04/24 1424 Signed By: 03/04/24 1432 Normal [facility] Magnesiumon 03-04-2024 Magnesium [Mass/Vol] 2.0 mg/dL Normal 1.9-2.7 [facility] Comment on above: Result Comment: PERF ORMED BY: [place] [address] PATHOLOGIST IRON CUTTER ADIEL AGUSTIN M.D. Performed By: #### C MP, MG, CBC #### [address] Complete Blood Count Auto Di ffon 03-03-2024 Basophils (Bld) [#/Vol] 0.1 10*3/uL Normal 0.0-0.2 [facility] Comment on above: Order Comment: REY PORRAS,WEN,160 Result Comment: PERF ORMED BY: [place] [address] PATHOLOGIST IRON CUTTER ADIEL AGUSTIN M.D. Performed By: #### C BC, CMP #### [place] [address] [place] Basophils/100 WBC (Bld) 0.6 % Normal . [facility] Comment on above: Order Comment: REY PORRAS,WEN,1606 Performed By: #### C BC, CMP #### [place] [address] [place] Eosinophils (Bld) [#/Vol] 0.1 10*3/uL Normal 0.0-0.45 [facility] Comment on above: Order Comment: RIN T O COME TRY,KAH,1607 Performed By: #### C BC, CMP #### [address] Eosinophils/100 WBC (Bld) 1.0 % Normal . [facility] Comment on above: Order Comment: RIN T O COME TRY,KAH,1607 Performed By: #### C BC, CMP #### [address] Erythrocyte distribution width (RBC) [Ratio] 14.6 % Normal 11.9-15.3 [facility] Comment on above: Order Comment: RIN T O COME TRY,KAH,1607 Performed By: #### C BC, CMP #### [address] Hematocrit (Bld) [Volume fraction] 42.9 % Normal 34.0-46.4 [facility] Comment on above: Order Comment: RIN T O COME TRY,KAH,1607 Performed By: #### C BC, CMP #### [address] Hemoglobin (Bld) [Mass/Vol] 14.5 g/dL Normal 11.8-15.4 [facility] Comment on above: Order Comment: RIN T O COME TRY,KAH,1607 Performed By: #### C BC, CMP #### [place] [address] [place] Lymphocytes (Bld) [#/Vol] 1.7 10*3/uL Normal 1.00-4.8 [facility] Comment on above: Order Comment: RIN T O COME TRY,KAH,1607 Performed By: #### C BC, CMP #### [place] [address] [place] Lymphocytes/100 WBC (Bld) 15.7 % Normal . [facility] Comment on above: Order Comment: RIN T O COME TRY,KAH,1607 Performed By: #### C BC, CMP #### [place] [address] [place] MCH (RBC) [Entitic mass] 29.1 pg Normal 24.7-34.3 [facility] Comment on above: Order Comment: RIN T O COME TRY,KAH,1607 Performed By: #### C BC, CMP #### [address] MCV (RBC) [Entitic vol] 85.9 fL Normal 80-100 [facility] Comment on above: Order Comment: RIN T O COME TRY,KAH,1607 Performed By: #### C BC, CMP #### [address] Mean Corpuscular HGB Conc 33.8 g/dL Normal 32.0-35.0 [facility] Comment on above: Order Comment: RIN T O COME TRY,KAH,1607 Performed By: #### C BC, CMP #### [address] Monocytes (Bld) [#/Vol] 0.9 10*3/uL High 0.0-0.8 [facility] Comment on above: Order Comment: RIN T O COME TRY,KAH,1607 Performed By: #### C BC, CMP #### [address] Monocytes/100 WBC (Bld) 8.4 % Normal . [facility] Comment on above: Order Comment: RIN T O COME TRY,KAH,1607 Performed By: #### C BC, CMP #### [address] Neutrophils (Bld) [#/Vol] 8.0 10*3/uL High 1.8-7.7 [facility] Comment on above: Order Comment: RIN T O COME TRY,KAH,1607 Performed By: #### C BC, CMP #### [address] Neutrophils/100 WBC (Bld) 74.3 % Normal . [facility] Comment on above: Order Comment: RIN T O COME TRY,KAH,1607 Performed By: #### C BC, CMP #### [facility] [address] NRBC% 0.1 /100{WBC} Normal 0-0.5 [facility] Comment on above: Order Comment: RIN T O COME TRY,KAH,1607 Performed By: #### C BC, CMP #### [facility] [address] Platelet mean volume (Bld) [Entitic vol] 8.9 fL Normal 6.3-10.7 [facility] Comment on above: Order Comment: RIN T O COME TRY,KAH,1607 Performed By: #### C BC, CMP #### [place] [address] [place] Platelets (Bld) [#/Vol] 291 10*3/uL Normal 150-450 [facility] Comment on above: Order Comment: RIN T O COME TRY,KAH,1607 Performed By: #### C BC, CMP #### [address] RBC (Bld) [#/Vol] 4.99 10*6/uL Normal 3.60-5.00 [facility] Comment on above: Order Comment: RIN T O COME TRY,KAH,1607 Performed By: #### C BC, CMP #### [address] WBC (Bld) [#/Vol] 10.7 10*3/uL Normal 3.8-11.6 [facility] Comment on above: Order Comment: RIN T O COME TRY,KAH,1607 Performed By: #### C BC, CMP #### [address] Comprehensive Metabolic Pane [place] 03-03-2024 Albumin [Mass/Vol] 4.6 g/dL Normal 3.5-5.7 The [facility] Comment on above: Order Comment: RIN T O COME TRY,KAH,1607 Performed By: #### C BC, CMP #### [address] Albumin/Globulin [Mass ratio] 1.4 {ratio} Normal [facility] Comment on above: Order Comment: RIN T O COME TRY,KAH,1607 Performed By: #### C BC, CMP #### [address] ALP [Catalytic activity/Vol] 80 U/L Normal 34-104 [facility] Comment on above: Order Comment: RIN T O COME TRY,KAH,1607 Performed By: #### C BC, CMP #### [address] ALT [Catalytic activity/Vol] 16 U/L Normal 7-52 [facility] Comment on above: Order Comment: RIN T O COME TRY,KAH,1607 Performed By: #### C BC, CMP #### [address] Anion gap [Moles/Vol] 13.6 mmol/L Normal 6.0-15.0 [facility] Comment on above: Order Comment: RIN T O COME TRY,KAH,1607 Performed By: #### C BC, CMP #### [place] [address] [place] AST [Catalytic activity/Vol] 35 U/L Normal 13-39 [facility] Comment on above: Order Comment: RIN T O COME TRY,KAH,1607 Performed By: #### C BC, CMP #### [place] [id number] [place] Bilirubin [Mass/Vol] 0.3 mg/dL Normal 0.3-1.0 [facility] Comment on above: Order Comment: RIN T O COME TRY,KAH,1607 Performed By: #### C BC, CMP #### [place] [address] [place] Calcium [Mass/Vol] 9.3 mg/dL Normal 8.6-10.3 [facility] Comment on above: Order Comment: RIN T O COME TRY,KAH,1607 Performed By: #### C BC, CMP #### [place] [address] [place] Chloride [Moles/Vol] 109 mmol/L High 98-107 [facility] Comment on above: Order Comment: RIN T O COME TRY,KAH,1606 Performed By: #### C BC, CMP #### [facility] [address] CO2 [Moles/Vol] 22.4 mmol/L Normal 21.0-31.0 [facility] Comment on above: Order Comment: RIN T O COME TRY,KAH,1606 Performed By: #### C BC, CMP #### [facility] [address] [place] [id number] [place] Creatinine [Mass/Vol] 0.93 mg/dL Normal 0.60-1.20 [facility] Comment on above: Order Comment: RIN T O COME TRY,KAH,1606 Performed By: #### C BC, CMP #### [facility] [address] [place] [address] [place] Creatinine Clr Calc Pharmacy 87.94 Normal [facility] Comment on above: Order Comment: RIN T O COME TRY,,1606 Result Comment: PERF ORMED BY: [place] [address] PATHOLOGIST IRON CUTTER ADIEL AGUSTIN M.D. Performed By: #### C BC, CMP #### [facility] [address] [place] [address] [place] GFR/1.73 sq M.predicted MDRD (S/P/Bld) [Vol rate/Area] mL/min/{1.73_m2} Normal [facility] Comment on above: Order Comment: RIN T O COME TRY,KAH,1606 Performed By: #### C BC, CMP #### [facility] [address] [place] [address] [place] Globulin (S) [Mass/Vol] 3.2 g/dL Normal [facility] Comment on above: Order Comment: RIN T O COME TRY,KAH,1606 Performed By: #### C BC, CMP #### [facility] [address] [place] [id number] [place] Glucose [Mass/Vol] 105 mg/dL High 70-100 [facility] Comment on above: Order Comment: REY T O JAK TRY,KAH,160 Result Comment: [place] Glucose Reference Range is dependent on time and content of last meal. Glucose of more than 200 mg/dL in a nonstressed, ambulatory subject supports the diagnosis of Diabetes Mellitus. ADA recommended reference range Performed By: #### C BC, CMP #### [facility] [address] Potassium [Moles/Vol] 4.0 mmol/L Normal 3.5-5.1 [facility] Comment on above: Order Comment: REY T O JAK PORRAS,WEN,160 Performed By: #### C BC, CMP #### [place] [id number] [facility] Protein [Mass/Vol] 7.8 g/dL Normal 6.4-8.9 [facility] Comment on above: Order Comment: REY Marge O JAK PORRAS,WEN,160 Performed By: #### C BC, CMP #### [place] [id number] [facility] Sodium [Moles/Vol] 141 mmol/L Normal 136-145 [facility] Comment on above: Order Comment: REY Bird O JAK PORRAS,KAH,160 Performed By: #### C BC, CMP #### [place] [id number] [facility] Urea nitrogen [Mass/Vol] 15 mg/dL Normal 7-25 [facility] Comment on above: Order Comment: REY Marge Campbell JAK PORRAS,WEN,160 Performed By: #### C BC, CMP #### [place] [id number] [facility] IGP,APTIMA HPV,AGE GDLNon AGE GDLN ACOG TESTING Note . [facility] Comment on above: TESTS RESULT FLAG UN ITS REF RANGE LAB Clinician Provided Cytology Information Source.............Cervix;Endocervix No. of containers..01 ThinPrep Vial Age Gigi WILDE Tona... 31 FLAG LEGEND: L-Low Normal,H-High Normal,LL-Alert Low,HH-Alert High <-Panic Low,>-Panic High,A-Abnormal,AA-Critical Abnormal Performed at: 01 =[address] [address] Farzana Hennessy MD, HPV APTIMA Negative Negative [facility] Comment on above: This nucleic acid am plification test detects fourteen high- risk HPV types (16,18,31,33,35,39,45,51,52,56,58,59,66,68) without differentiation. Performed at: =[address] [id number] Rock Crusher: Farzana Hennessy MD, Phone: [phone] Performed at: [facility] [id number] [place] [id number] Rock Crusher: Scott Sandoval MD, Phone: [phone] IGP, APTIMA HPV, RFX 16/18,45 Note . [facility] Comment on above: TESTS RESULT FLAG UN ITS REF RANGE LAB DIAGNOSIS: 02 NEGATIVE FOR INTRAEPITHELIAL LESION OR MALIGNANCY. Specimen adequacy: 02 Satisfactory for evaluation. Endocervical and/or squamous metaplastic cells (endocervical component) are present. Performed by: 02 Adelaida Bustamante, [employer] ([facility]) . 02 Note: Note 03 The Pap [...] High,A-Abnormal,AA-Critical Abnormal Performed at: 02 [facility] [address] [place] [address] Scott Sandoval MD, 03 WB [facility] [address] [address] Farzana Hennessy MD, BROOM-ALONE CERVIX ENDOCERVIX [facility] Urinalysis macro (dipstick) panel (U)on 01-28-2024 Bilirubin, UA Negative Negative - 4(70) +++ mg/dL [facility] Blood, UA Negative Negative - 50 Kranthi/mcL [facility] Clarity, UA Clear [facility] Color, UA Dark Tania [facility] Glucose, UA Negative Negative - 2000(110) ++++ mg/dL [facility] Interpretation and review of laboratory results Abnormal [facility] Ketones, UA Negative Negative - 160(16) ++++ mg/dL [facility] Leukocytes, UA Trace Negative - 500+++ Radha/mcL [facility] Nitrite, UA Negative Negative - Positive [facility] pH, UA 5.5 5 - 9 [facility] Protein, UA Negative Negative - 2000(20) ++++ mg/dL [facility] Spec Grav, UA 1.025 1 - 1.03 [facility] Urobilinogen, UA 0.2 0.2 - 12 mg/dL [facility] MHPT CULT,URINEon 01-23-2024 Interpretation and review of laboratory results [facility] Spec[facility] Description .CLEAN CATCH URINE [facility]PT CULT,URINE Culture ESCHERICHIA COLI >100,000 CFU/ML [facility] STREPTOCOCCI, BETA HEMOLYTIC GROUP B 10 to 50,000 CFU/ML Abnormal [facility] Report Status FINAL 01/23/2024 [facility]PT CULT,URINE SUSCEPTIBILITY [facility] Organism ESCHERICHIA COLI [facility] Method CROW [facility] Ampicillin 16 INTERMEDIATE Intermediate [facility] Cefazolin <=4 SUSCEPTIBLE Susceptible [facility] Cefazolin sensitivit y results can be used to predict the effectiveness of oral Susceptible [facility] cephalosporins (eg. Cephalexin) in uncomplicated Urinary Tract Infections due Susceptible [facility] to E. coli, K. pneumoniae, and P. mirabilis Susceptible [facility] Ceftriaxone <=0.25 SUSCEPTIBLE Susceptible [facility] Negative Susceptible [facility] Gentamicin <=1 SUSCEPTIBLE Susceptible [facility] Levofloxacin <=0.12 SUSCEPTIBLE Susceptible [facility] Nitrofurantoin <=16 SUSCEPTIBLE Susceptible [facility] Piperacillin/Tazobac ta m <=4 SUSCEPTIBLE Susceptible [facility] Tobramycin <=1 SUSCEPTIBLE Susceptible [facility] Trimethoprim/Sulfa <=20 SUSCEPTIBLE Susceptible [facility] Original Ordering Provider: RICHA DAVENPORT [facility] ALL BASIC METABOLIC PANELon 01-05-2024 Anion gap [Moles/Vol] 11.1 mmol/L [facility] Calcium [Mass/Vol] 9.2 mg/dL 8.5 - 10. 1 mg/dL [facility] Chloride [Moles/Vol] 105 mmol/L 98 - 10 7 mmol/L [facility] CO2 [Moles/Vol] 28.0 mmol/L 21.0 - 32.0 mmol/L [facility] Creatinine [Mass/Vol] 1.08 mg/dL High 0.55 - 1.02 mg/dL [facility] GFR/1.73 sq M.predicted CKD-EPI (S/P/Bld) [Vol rate/Area] >60 60 - PINF [facility] Glucose [Mass/Vol] 92 mg/dL 74 - 106 mg/dL [facility] Interpretation and review of laboratory results Abnormal [facility] Potassium [Moles/Vol] 4.1 mmol/L 3.5 - 5.1 mmol/L [facility] Sodium [Moles/Vol] 140 mmol/L 136 - 145 mmol/L [facility] TBH EGFR-NON AF FIJIAN 51 Low 60 - PINF [facility] Urea nitrogen [Mass/Vol] 17.0 mg/dL 7.0 - 18.0 mg/dL [facility] Urea nitrogen/Creatinine [Mass ratio] 15.7 mg/mg [facility] Amphetamine Screen Ql (U)Ord ered By: Jace Graham on 03-23-2023 Amphetamines Ql (U) Negative Negative [facility] Barbiturates [Presence] in U rine by Screen methodOrdered By: Jace Graham on 03-23-2023 Barbiturates Screen Ql (U) Negative Negative [facility] Benzodiazepines Screen Ql (U )Ordered By: Jace Graham on 03-23-2023 Benzodiazepines Ql (U) Negative Negative [facility] Benzoylecgonine [Presence] i n Urine by Screen methodOrdered By: Jace Graham on 03-23-2023 Benzoylecgonine Screen Ql (U) Negative Negative [facility] Cannabinoids [Presence] in U rine by Screen methodOrdered By: Jace Graham on 03-23-2023 Cannabinoids Screen Ql (U) Negative Negative [facility] Comment on above: These are unconfirme d results and should not be used for legal purposes. Drug Cut-Off Concentration: AMPH 1000 ng/mL ELKIN 200 ng/mL ATIYA 200 ng/mL COCM 300 ng/mL OP 300 ng/mL PCP 25 ng/mL THC 20 ng/mL Opiates [Presence] in Urine by Screen methodOrdered By: Jace Graham on 03-23-2023 Opiates Screen Ql (U) Negative Negative [facility] Phencyclidine Screen Ql (U)O rdered By: Jace Graham on 03-23-2023 Phencyclidine Ql (U) Negative Negative [facility] Cholesterol [Mass/volume] in Serum or PlasmaOrdered By: Eduardo Monk on 11-18-2022 Cholesterol [Mass/Vol] 159 mg/dL 140-200 [facility] Comment on above: Chol less than 200 m g/dl low riskChol 201-239 mg/dl borderline riskChol 240 mg/dl and greater high risk Cholesterol in LDL Calc [Mas s/Vol]Ordered By: Eduardo Monk on 11-18-2022 Cholesterol in LDL [Mass/Vol] 84 mg/dL 0-100 [facility] Comment on above: LDL ATP III CLASSIFI CATIONLDL less than 100 mg/dL OptimalLDL 100-129 mg/dL Near or above optimalLDL 130-159 mg/dL Borderline highLDL 160-189 mg/dL HighLDL greater than 189 mg/dL Very high Cholesterol in VLDL Calc [Ma ss/Vol]Ordered By: Eduardo Monk on 11-18-2022 Cholesterol in VLDL [Mass/Vol] 28 mg/dL [facility] Serum or plasma high density lipoprotein (HDL) cholesterol measurementOrdered By: Eduardo Monk on 11-18-2022 Cholesterol in HDL [Mass/Vol] 46 mg/dL 23-92 [facility] Comment on above: HDL CHOL ATP-III CLA SSIFICATION Cardiovascular RiskHDL > or equal to 60 mg/dL LOWHDL < 40 mg/dL HIGH Serum or plasma total choles terol/high density lipoprotein (HDL) cholesterol mass ratOrdered By: Eduardo Monk on 11-18-2022 Cholesterol.total/Chol esterol in HDL [Mass ratio] 3.5 {ratio} <5.0 [facility] Thyrotropin [Units/volume] i n Serum or PlasmaOrdered By: Eduardo Monk on 11-18-2022 TSH Qn 2.13 m[IU]/L 0.45-5.33 [facility] Triglyceride [Mass/volume] i n Serum or PlasmaOrdered By: Eduardo Monk on 11-18-2022 Triglyceride [Mass/Vol] 144 mg/dL 0-149 [facility] Comment on above: TRIG ATP III CLASSIF ICATIONTRIG less than 150 mg/dL NormalTRIG 150-199 mg/dL Borderline highTRIG 200-500 mg/dL High TRIG greater than 500 mg/dL Very highStandard traceable to the Center for Disease Conrtrol and Prevention (CDC) test method. Vitamin D+Metabolites [Mass/ volume] in Serum or PlasmaOrdered By: Eduardo Monk on 11-18-2022 Vitamin D+Metabolites [Mass/Vol] 50.4 ng/mL 30-100 [facility] Comment on above: VITAMIN D STATUS 25( [place])VITAMIN D RANGE (ng/mL) Deficient <20 Insufficient 20 to <30Sufficient 30 to 100Reference: Bin MF,Lakshmi NC, Cristian SMART, et al. Evaluation,treatment, and prevention of vitamin D deficiency; an Endocrine Society clinical practice guideline. JCEM. 2010; 96(7):1911-30. CBC AUTO DIFFon 07-25-2022 BASO # 0.1 103/ul Normal 0.0-0.1 [facility] Comment on above: Performed By: #### A 1C #### [facility] [address] [place] [address] Dr. Bebeto Alvarado Basophils/100 WBC (Bld) 0.6 % Normal 0.2-2.0 [facility] Comment on above: Performed By: #### A 1C #### [facility] [address] [place] [address] [address] Bebeto Alvarado EO # 0.2 103/ul Normal 0.0-0.7 [facility] Comment on above: Performed By: #### A 1C #### [facility] [address] [place] [address] Dr. Bebeto Alvarado Eosinophils/100 WBC (Bld) 2.3 % Normal 0.9-7.0 [facility] Comment on above: Performed By: #### A 1C #### [facility] [address] [place] [address] Dr. Bebeto Alvarado Erythrocyte distribution width (RBC) [Ratio] 13.8 % Normal 11.0-15.0 [facility] Comment on above: Performed By: #### A 1C #### [facility] [address] [place] [address] Dr. Bebeto Alvarado Hematocrit (Bld) [Volume fraction] 41.2 % Normal 36.0-48.0 [facility] Comment on above: Performed By: #### A 1C #### [facility] [address] [place] [address] Dr. Bebeto Alvarado Hemoglobin (Bld) [Mass/Vol] 13.2 g/dL Normal 12.0-16.0 [facility] Comment on above: Performed By: #### A 1C #### [facility] [address] [place] [address] Dr. Bebeto Alvarado IG # 0.03 10e3/ul Normal 0.00-0.03 [facility] Comment on above: Performed By: #### A 1C #### [facility] [address] [place] [address] Dr. Bebeto Alvarado IG % 0.4 % Normal 0.0-0.5 [facility] Comment on above: Performed By: #### A 1C #### [facility] [address] [place] [address] Dr. Bebeto Alvarado LYMPH # 2.1 103/ul Normal 1.2-3.8 [facility] Comment on above: Performed By: #### A 1C #### [facility] [address] [place] [address] Dr. Bebeto Alvarado Lymphocytes/100 WBC (Bld) 25.9 % Normal 20.5-60.0 [facility] Comment on above: Performed By: #### A 1C #### [facility] [address] [place] [address] Dr. Bebeto Alvarado MANUAL DIFF REQ NO Normal [facility] Comment on above: Performed By: #### A 1C #### [facility] [address] [place] [address] Dr. Bebeto Alvarado MCH (RBC) [Entitic mass] 28.0 pg Normal 26.7-34.0 [facility] Comment on above: Performed By: #### A 1C #### [facility] [address] [place] [address] Dr. Bebeto Alvarado MCHC (RBC) [Mass/Vol] 32.0 g/dL Normal 29.9-35.2 [facility] Comment on above: Performed By: #### A 1C #### [facility] [address] [place] [address] Dr. Bebeto Alvarado MCV (RBC) [Entitic vol] 87.5 fL Normal 81.0-99.0 [facility] Comment on above: Performed By: #### A 1C #### [facility] [address] [place] [address] Dr. Bebeto Alvarado MONO # 0.5 103/ul Normal 0.3-0.8 [facility] Comment on above: Performed By: #### A 1C #### [facility] [address] [place] [address] Dr. Bebeto Alvarado Monocytes/100 WBC (Bld) 6.6 % Normal 1.7-12.0 [facility] Comment on above: Performed By: #### A 1C #### [facility] [address] [place] [address] Dr. Bebeto Alvarado NEUT # 5.1 103/ul Normal 1.4-6.5 [facility] Comment on above: Performed By: #### A 1C #### [facility] [address] [place] [address] Dr. Bebeto Alvarado Neutrophils/100 WBC (Bld) 64.2 % Normal 43.0-75.0 [facility] Comment on above: Performed By: #### A 1C #### [facility] [address] [place] [address] Dr. Bebeto Alvarado Platelet mean volume (Bld) [Entitic vol] 11.2 fL Normal 9.5-13.5 [facility] Comment on above: Performed By: #### A 1C #### [facility] [address] [place] [address] Dr. Bebeto Alvarado PLT 252 103/ul Normal 150-450 [facility] Comment on above: Performed By: #### A 1C #### [facility] [address] [place] [address] Dr. Bebeto Alvarado RBC 4.71 106/ul Normal 4.20-5.40 [facility] Comment on above: Performed By: #### A 1C #### [facility] [address] [place] [address] Dr. Bebeto Alvarado WBC 8.0 103/ul Normal 4.0-11.0 [facility] Comment on above: Performed By: #### A 1C #### [facility] [address] [place] [address] Dr. Bebeto Alvarado GLYCOHEMOGLOBIN A1Con 2022 ADA RECOMMENDATION SEE BELOW Normal [facility] Comment on above: Result Comment: ADA RECOMMENDED LIMIT 4.0 - 6.0 ADA THERAPEUTIC TARGET < 7.0 ACTION SUGGESTED > 7.0 Performed By: #### A 1C #### [facility] [address] [place] [address] Dr. Bebeto Alvarado Glucose [Mass/Vol] 114 mg/dL Normal [facility] Comment on above: Performed By: #### A 1C #### [facility] [address] [place] [address] Dr. Bebeto Alvarado HbA1c (Bld) [Mass fraction] 5.6 % Normal 4.5-6.2 [facility] Comment on above: Performed By: #### A 1C #### [facility] [address] [place] [address] Dr. Bebeto Alvarado IRONon 07-25-2022 Iron [Mass/Vol] 60.0 ug/dL Normal 50.0-170.0 [facility] Comment on above: Performed By: #### V ITB12, IRON #### [facility] [address] [place] [address] Dr. Bebeto Alvarado LIPID PROFILEon 07-25-2022 CHOL-HDL RATIO NORM SEE BELOW Normal [facility] Comment on above: Result Comment: 3.3 - 4.4 LOW RISK 4.4 - 7.1 AVERAGE RISK 7.1 - 11.0 MODERATE RISK >11.0 HIGH RISK Performed By: #### C MP, LIPID #### [facility] [address] [address] [address] Bebeto Alvarado Cholesterol [Mass/Vol] 144 mg/dL Normal <=200 [facility] Comment on above: Performed By: #### C MP, LIPID #### [facility] [address] [place] [address] Dr. Bebeto Alvarado Cholesterol in HDL [Mass/Vol] 39 mg/dL Critically low 40-60 [facility] Comment on above: Performed By: #### C MP, LIPID #### [facility] [address] [place] [address] Dr. Bebeto Alvarado Cholesterol in LDL [Mass/Vol] 74.6 mg/dL Normal [facility] Comment on above: Performed By: #### C MP, LIPID #### [facility] [address] [place] [address] Dr. Bebeto Alvarado Cholesterol.total/Chol esterol in HDL [Mass ratio] 3.7 {ratio} Normal [facility] Comment on above: Performed By: #### C MP, LIPID #### [facility] [address] [place] [address] Dr. Bebeto Alvarado HDL NORMAL > or = 60 mg/dl - LO W CARDIOVASCULAR RISK <40 mg/dl - HIGH CARDIOVASCULAR RISK Normal [facility] Comment on above: Performed By: #### C MP, LIPID #### [facility] [address] [place], [place] [id number] Dr. Bebeto Alvarado LDL CALC NORMAL SEE BELOW Normal [facility] Comment on above: Result Comment: <100 mg/dl OPTIMAL 100 - 129 mg/dl NEAR OR ABOVE OPTIMAL 130 - 159 mg/dl BORDERLINE HIGH 160 - 189 mg/dl HIGH >190 mg/dl VERY HIGH Performed By: #### C MP, LIPID #### [facility] [address] [address] [address] Bebeto Alvarado Triglyceride [Mass/Vol] 152 mg/dL Critically high <=150 [facility] Comment on above: Performed By: #### C MP, LIPID #### [facility] [address] [address] [address] Bebeto Alvarado VLDL CALC 30.4 mg/dL Normal [facility] Comment on above: Performed By: #### C MP, LIPID #### [facility] [address] [address] [address] Bebeto Alvarado PROF 14(COMP METB)on 023 Albumin [Mass/Vol] 3.7 g/dL Normal 3.4-5.0 [facility] Comment on above: Performed By: #### C MP, LIPID #### [facility] [address] [place] [address] Dr. Bebeto Alvarado Albumin/Globulin [Mass ratio] 0.9 {ratio} Normal [facility] Comment on above: Performed By: #### C MP, LIPID #### [facility] [address] [place] [address] Dr. Bebeto Alvarado ALP [Catalytic activity/Vol] 90 U/L Normal 46-116 [facility] Comment on above: Performed By: #### C MP, LIPID #### [facility] [address] [place] [address] Dr. Bebeto Alvarado ALT [Catalytic activity/Vol] 38 U/L Normal 14-59 [facility] Comment on above: Performed By: #### C MP, LIPID #### [facility] [address] [place] [address] Dr. Bebeto Alvarado Anion gap [Moles/Vol] 12.1 mmol/L Normal [facility] Comment on above: Performed By: #### C MP, LIPID #### [facility] [address] [place] [address] Dr. Bebeto Alvarado AST [Catalytic activity/Vol] 26 U/L Normal 15-37 [facility] Comment on above: Performed By: #### C MP, LIPID #### [facility] [address] [address] [address] Bebeto Alvarado Bilirubin [Mass/Vol] 0.3 mg/dL Normal 0.2-1.0 [facility] Comment on above: Performed By: #### C MP, LIPID #### [facility] [address] [address] [address] Bebeto Alvarado Calcium [Mass/Vol] 9.3 mg/dL Normal 8.5-10.1 [facility] Comment on above: Performed By: #### C MP, LIPID #### [facility] [address] [address] [address] Bebeto Alvarado Chloride [Moles/Vol] 107 mmol/L Normal 98-107 [facility] Comment on above: Performed By: #### C MP, LIPID #### [facility] [address] [place] [address] Dr. Bebeto Alvarado CO2 [Moles/Vol] 27.9 mmol/L Normal 21.0-32.0 [facility] Comment on above: Performed By: #### C MP, LIPID #### [facility] [address] [place] [address] Dr. Bebeto Alvarado Creatinine [Mass/Vol] 0.95 mg/dL Normal 0.55-1.02 [facility] Comment on above: Performed By: #### C MP, LIPID #### [facility] [address] [place] [address] Dr. Bebeto Alvarado EGFR-AF FIJIAN >60 Normal >=60 [facility] Comment on above: Performed By: #### C MP, LIPID #### [facility] [address] [place] [address] Dr. Bebeto Alvarado EGFR-NON AF FIJIAN 60 mL/min/1.73m2 Normal >=60 [facility] Comment on above: Performed By: #### C MP, LIPID #### [facility] [address] [place] [address] Dr. Bebeto Alvarado Globulin (S) [Mass/Vol] 3.9 g/dL Normal [facility] Comment on above: Performed By: #### C MP, LIPID #### [facility] [address] [address] [address] Bebeto Alvarado Glucose [Mass/Vol] 108 mg/dL Critically high 74-106 [facility] Comment on above: Performed By: #### C MP, LIPID #### [facility] [address] [address] [address] Bebeto Alvarado Potassium [Moles/Vol] 4.0 mmol/L Normal 3.5-5.1 [facility] Comment on above: Performed By: #### C MP, LIPID #### [facility] [address] [address] [address] Bebeto Alvarado Protein [Mass/Vol] 7.6 g/dL Normal 6.4-8.2 [facility] Comment on above: Performed By: #### C MP, LIPID #### [facility] [address] [place] [address] Dr. Bebeto Alvarado Sodium [Moles/Vol] 143 mmol/L Normal 136-145 [facility] Comment on above: Performed By: #### C MP, LIPID #### [facility] [address] [place] [address] Dr. Bebeto Alvarado Urea nitrogen [Mass/Vol] 15.0 mg/dL Normal 7.0-18.0 [facility] Comment on above: Performed By: #### C MP, LIPID #### [facility] [address] [place] [address] Dr. Bebeto Alvarado Urea nitrogen/Creatinine [Mass ratio] 15.8 mg/mg Normal [facility] Comment on above: Performed By: #### C MP, LIPID #### [facility] [address] [place] [address] Dr. Bebeto Alvarado UA RANDOM W/MICROSCOPICon BACTERIA NONE SEEN Normal NONE SEEN [facility] Comment on above: Performed By: #### A 1C #### [facility] [address] [place] [address] Dr. Bebeto Alvarado Bilirubin Ql (U) Negative Normal NEGATIVE [facility] Comment on above: Performed By: #### A 1C #### [facility] [address] [place] [address] Dr. Bebeto Alvarado CAST NONE SEEN Normal NONE SEEN [facility] Comment on above: Performed By: #### A 1C #### [facility] [address] [place] [address] Dr. Bebeto Alvarado Clarity (U) CLEAR Normal CLEAR [facility] Comment on above: Performed By: #### A 1C #### [facility] [address] [place] [address] Dr. Bebeto Alvarado Color (U) YELLOW Normal YELLOW [facility] Comment on above: Performed By: #### A 1C #### [facility] [address] [place] [address] Dr. Bebeto Alvarado Crystals LM Nom (Urine sed) NONE SEEN Normal NONE SEEN [facility] Comment on above: Performed By: #### A 1C #### [facility] [address] [place] [address] Dr. Bebeto Alvarado Epithelial cells LM Ql (Urine sed) NONE SEEN Normal NONE SEEN /RARE [facility] Comment on above: Performed By: #### A 1C #### [facility] [address] [place] [address] Dr. Bebeto Alvarado Glucose Ql (U) Negative Normal NEGATIVE [facility] Comment on above: Performed By: #### A 1C #### [facility] [address] [place] [address] Dr. Bebeto Alvarado Hemoglobin Ql (U) Negative Normal NEGATIVE [facility] Comment on above: Performed By: #### A 1C #### [facility] [address] [place] [address] Dr. Bebeto Alvarado Ketones Ql (U) Negative Normal NEGATIVE [facility] Comment on above: Performed By: #### A 1C #### [facility] [address] [place] [address] Dr. Bebeto Alvarado LEUKOCYTES Negative Normal NEGATIVE [facility] Comment on above: Performed By: #### A 1C #### [facility] [address] [place] [address] Dr. Bebeto Alvarado MUCOUS NONE SEEN Normal NONE SEEN [facility] Comment on above: Performed By: #### A 1C #### [facility] [address] [place] [address] Dr. Bebeto Alvarado Nitrite Ql (U) Negative Normal NEGATIVE [facility] Comment on above: Performed By: #### A 1C #### [facility] [address] [place] [address] Dr. Bebeto Alvarado pH (U) 5.5 [pH] Normal 5-9 [facility] Comment on above: Performed By: #### A 1C #### [facility] [address] [place] [address] Dr. Bebeto Alvarado RBC NONE SEEN Abnormal 0-2 [facility] Comment on above: Performed By: #### A 1C #### [facility] [address] [place] [address] Dr. Bebeto Alvarado SPEC GRAVITY 1.030 Abnormal 1.005-<=1.02 5 [facility] Comment on above: Performed By: #### A 1C #### [facility] [address] [place] [address] Dr. Bebeto Alvarado UA PROTEIN Negative Normal NEGATIVE/ TRACE [facility] Comment on above: Performed By: #### A 1C #### [facility] [address] [place] [address] Dr. Bebeto Alvarado Urobilinogen Qn (U) 0.2 {Katerin'U}/dL Normal 0.2 - 1. 0 [facility] Comment on above: Performed By: #### A 1C #### [facility] [address] [place] [address] Dr. Bebeto Alvarado WBC NONE SEEN Normal NONE SEEN [facility] Comment on above: Performed By: #### A 1C #### [facility] [address] [place] [address] Dr. Bebeto Alvarado VITAMIN B12on 07-25-2022 Cobalamin (Vitamin B12) [Mass/Vol] 1684.0 pg/mL Critically high 193.0-986.0 [facility] Comment on above: Performed By: #### V ITB12, IRON #### [facility] [address] [place] [address] Dr. Bebeto Alvarado PROF CHEM 8 (BAS METB)on Anion gap [Moles/Vol] 12.2 mmol/L Normal [facility] Comment on above: Performed By: #### B MP #### [facility] [address] [place] [address] Dr. Bebeto Alvarado Calcium [Mass/Vol] 8.9 mg/dL Normal 8.5-10.1 [facility] Comment on above: Performed By: #### B MP #### [facility] [address] [address] [address] Bebeto Alvarado Chloride [Moles/Vol] 105 mmol/L Normal 98-107 [facility] Comment on above: Performed By: #### B MP #### [facility] [address] [place] [address] Dr. Bebeto Alvarado CO2 [Moles/Vol] 29.6 mmol/L Normal 21.0-32.0 [facility] Comment on above: Performed By: #### B MP #### [facility] [address] [address] [address] Bebeto Alvarado Creatinine [Mass/Vol] 0.95 mg/dL Normal 0.55-1.02 [facility] Comment on above: Performed By: #### B MP #### [facility] [address] [place] [address] Dr. Bebeto Alvarado EGFR-AF FIJIAN >60 Normal >=60 [facility] Comment on above: Performed By: #### B MP #### [facility] [address] [address] [address] Bebeto Alvarado EGFR-NON AF FIJIAN 60 mL/min/1.73m2 Normal >=60 [facility] Comment on above: Performed By: #### B MP #### [facility] [address] [address] [address] Bebeto Alvarado Glucose [Mass/Vol] 101 mg/dL Normal 74-106 [facility] Comment on above: Performed By: #### B MP #### [facility] [address] [address] [address] Bebeto Alvarado Potassium [Moles/Vol] 3.8 mmol/L Normal 3.5-5.1 [facility] Comment on above: Performed By: #### B MP #### [facility] [address] [place] [address] Dr. Bebeto Alvarado Sodium [Moles/Vol] 143 mmol/L Normal 136-145 [facility] Comment on above: Performed By: #### B MP #### [facility] [address] [place] [address] Dr. Bebeto Alvarado Urea nitrogen [Mass/Vol] 16.0 mg/dL Normal 7.0-18.0 [facility] Comment on above: Performed By: #### B MP #### [facility] [address] [place] [address] Dr. eBbeto Alvarado Urea nitrogen/Creatinine [Mass ratio] 16.8 mg/mg Normal [facility] Comment on above: Performed By: #### B MP #### [facility] [address] [place] [address] Dr. Bebeto Alvarado CBC AUTO DIFFon 11-21-2021 BASO # 0.1 103/ul Normal 0.0-0.1 [facility] Comment on above: Performed By: #### A 1C #### [facility] [address] [place] [address] Dr. Bebeto Alvarado Basophils/100 WBC (Bld) 1.0 % Normal 0.2-2.0 [facility] Comment on above: Performed By: #### A 1C #### [facility] [address] [place] [address] Dr. Bebeto Alvarado EO # 0.2 103/ul Normal 0.0-0.7 [facility] Comment on above: Performed By: #### A 1C #### [facility] [address] [place] [address] Dr. Bebeto Alvarado Eosinophils/100 WBC (Bld) 3.3 % Normal 0.9-7.0 [facility] Comment on above: Performed By: #### A 1C #### [facility] [address] [place] [address] Dr. Bebeto Alvarado Erythrocyte distribution width (RBC) [Ratio] 13.8 % Normal 11.0-15.0 [facility] Comment on above: Performed By: #### A 1C #### [facility] [address] [place] [address] Dr. Bebeto Alvarado Hematocrit (Bld) [Volume fraction] 38.8 % Normal 36.0-48.0 [facility] Comment on above: Performed By: #### A 1C #### [facility] [address] [place] [address] Dr. eBbeto Alvarado Hemoglobin (Bld) [Mass/Vol] 12.5 g/dL Normal 12.0-16.0 [facility] Comment on above: Performed By: #### A 1C #### [facility] [address] [place] [address] Dr. Bebeto Alvarado IG # 0.02 10e3/ul Normal 0.00-0.03 [facility] Comment on above: Performed By: #### A 1C #### [facility] [address] [place] [address] Dr. Bebeto Alvarado IG % 0.3 % Normal 0.0-0.5 [facility] Comment on above: Performed By: #### A 1C #### [facility] [address] [place] [address] Dr. Bebeto Alvarado LYMPH # 1.9 103/ul Normal 1.2-3.8 [facility] Comment on above: Performed By: #### A 1C #### [facility] [address] [place] [address] Dr. Bebeto Alvarado Lymphocytes/100 WBC (Bld) 29.6 % Normal 20.5-60.0 [facility] Comment on above: Performed By: #### A 1C #### [facility] [address] [place] [address] Dr. Bebeto Alvarado MANUAL DIFF REQ NO Normal [facility] Comment on above: Performed By: #### A 1C #### [facility] [address] [place] [address] Dr. Bebeto Alvarado MCH (RBC) [Entitic mass] 28.0 pg Normal 26.7-34.0 [facility] Comment on above: Performed By: #### A 1C #### [facility] [address] [address] [address] Bebeto Alvarado MCHC (RBC) [Mass/Vol] 32.2 g/dL Normal 29.9-35.2 [facility] Comment on above: Performed By: #### A 1C #### [facility] [address] [place] [address] Dr. Bebeto Alvarado MCV (RBC) [Entitic vol] 86.8 fL Normal 81.0-99.0 [facility] Comment on above: Performed By: #### A 1C #### [facility] [address] [place] [address] Dr. Bebeto Alvarado MONO # 0.4 103/ul Normal 0.3-0.8 [facility] Comment on above: Performed By: #### A 1C #### [facility] [address] [place] [address] Dr. Bebeto Alvarado Monocytes/100 WBC (Bld) 5.7 % Normal 1.7-12.0 [facility] Comment on above: Performed By: #### A 1C #### [facility] [address] [place] [address] Dr. Bebeto Alvarado NEUT # 3.8 103/ul Normal 1.4-6.5 [facility] Comment on above: Performed By: #### A 1C #### [facility] [address] [place] [address] Dr. Bebeto Alvarado Neutrophils/100 WBC (Bld) 60.1 % Normal 43.0-75.0 [facility] Comment on above: Performed By: #### A 1C #### [facility] [address] [place] [address] Dr. Bebeto Alvarado Platelet mean volume (Bld) [Entitic vol] 11.0 fL Normal 9.5-13.5 [facility] Comment on above: Performed By: #### A 1C #### [facility] [address] [place] [address] Dr. Bebeto Alvarado PLT 264 103/ul Normal 150-450 [facility] Comment on above: Performed By: #### A 1C #### [facility] [address] [address] [address] Bebeto Alvarado RBC 4.47 106/ul Normal 4.20-5.40 [facility] Comment on above: Performed By: #### A 1C #### [facility] [address] [place] [address] Dr. Bebeto Alvarado WBC 6.3 103/ul Normal 4.0-11.0 [facility] Comment on above: Performed By: #### A 1C #### [facility] [address] [place] [address] Dr. Bebeto Alvarado GLYCOHEMOGLOBIN A1Con 2021 ADA RECOMMENDATION SEE BELOW Normal [facility] Comment on above: Result Comment: ADA RECOMMENDED LIMIT 4.0 - 6.0 ADA THERAPEUTIC TARGET < 7.0 ACTION SUGGESTED > 7.0 Performed By: #### A 1C #### [facility] [address] [place] [address] Dr. Bebeto Alvarado Glucose [Mass/Vol] 105 mg/dL Normal [facility] Comment on above: Performed By: #### A 1C #### [facility] [address] [place] [address] Dr. Bebeto Alvarado HbA1c (Bld) [Mass fraction] 5.3 % Normal 4.5-6.2 [facility] Comment on above: Performed By: #### A 1C #### [facility] [address] [place] [address] Dr. Bebeto Alvarado IRONon 11-21-2021 Iron [Mass/Vol] 59.0 ug/dL Normal 50.0-170.0 [facility] Comment on above: Performed By: #### A 1C #### [facility] [address] [place] [address] Dr. Bebeto Alvarado LIPID PROFILEon 11-21-2021 CHOL-HDL RATIO NORM SEE BELOW Normal [facility] Comment on above: Result Comment: 3.3 - 4.4 LOW RISK 4.4 - 7.1 AVERAGE RISK 7.1 - 11.0 MODERATE RISK >11.0 HIGH RISK Performed By: #### C MP, LIPID #### [facility] [address] [address] [address] Bebeto Alvarado Cholesterol [Mass/Vol] 139 mg/dL Normal <=200 [facility] Comment on above: Performed By: #### C MP, LIPID #### [facility] [address] [address] [address] Bebeto Alvarado Cholesterol in HDL [Mass/Vol] 35 mg/dL Critically low 40-60 [facility] Comment on above: Performed By: #### C MP, LIPID #### [facility] [address] [place] [address] [address] Bebeto Alvarado Cholesterol in LDL [Mass/Vol] 69.6 mg/dL Normal [facility] Comment on above: Performed By: #### C MP, LIPID #### [facility] [address] [address] [address] Bebeto Alvarado Cholesterol.total/Chol esterol in HDL [Mass ratio] 4.0 {ratio} Normal [facility] Comment on above: Performed By: #### C MP, LIPID #### [facility] [address] [address] [address] Bebeto Alvarado HDL NORMAL > or = 60 mg/dl - LO W CARDIOVASCULAR RISK <40 mg/dl - HIGH CARDIOVASCULAR RISK Normal [facility] Comment on above: Performed By: #### C MP, LIPID #### [facility] [address] [address] [address] Bebeto Alvarado LDL CALC NORMAL SEE BELOW Normal [facility] Comment on above: Result Comment: <100 mg/dl OPTIMAL 100 - 129 mg/dl NEAR OR ABOVE OPTIMAL 130 - 159 mg/dl BORDERLINE HIGH 160 - 189 mg/dl HIGH >190 mg/dl VERY HIGH Performed By: #### C MP, LIPID #### [facility] [address] [address] [address] Bebeto Alvarado Triglyceride [Mass/Vol] 172 mg/dL Critically high <=150 [facility] Comment on above: Performed By: #### C MP, LIPID #### [facility] [address] [address] [address] Bebeto Alvarado VLDL CALC 34.4 mg/dL Normal [facility] Comment on above: Performed By: #### C MP, LIPID #### [facility] [address] [place] [address] Dr. Bebeto Alvarado PROF 14(COMP METB)on 022 Albumin [Mass/Vol] 3.8 g/dL Normal 3.4-5.0 [facility] Comment on above: Performed By: #### C MP, LIPID #### [facility] [address] [place] [address] Dr. Bebeto Alvarado Albumin/Globulin [Mass ratio] 1.1 {ratio} Normal [facility] Comment on above: Performed By: #### C MP, LIPID #### [facility] [address] [place] [address] Dr. Bebeto Alvarado ALP [Catalytic activity/Vol] 96 U/L Normal 46-116 [facility] Comment on above: Performed By: #### C MP, LIPID #### [facility] [address] [place] [address] Dr. Bebeto Alvarado ALT [Catalytic activity/Vol] 25 U/L Normal 14-59 [facility] Comment on above: Performed By: #### C MP, LIPID #### [facility] [address] [place] [address] Dr. Bebeto Alvarado Anion gap [Moles/Vol] 11.8 mmol/L Normal [facility] Comment on above: Performed By: #### C MP, LIPID #### [facility] [address] [place] [address] Dr. Bebeto Alvarado AST [Catalytic activity/Vol] 20 U/L Normal 15-37 [facility] Comment on above: Performed By: #### C MP, LIPID #### [facility] [address] [place] [address] Dr. Bebeto Alvarado Bilirubin [Mass/Vol] 0.4 mg/dL Normal 0.2-1.0 [facility] Comment on above: Performed By: #### C MP, LIPID #### [facility] [address] [place] [address] Dr. Bebeto Alvarado Calcium [Mass/Vol] 8.8 mg/dL Normal 8.5-10.1 [facility] Comment on above: Performed By: #### C MP, LIPID #### [facility] [address] [place] [address] Dr. Bebeto Alvarado Chloride [Moles/Vol] 106 mmol/L Normal 98-107 [facility] Comment on above: Performed By: #### C MP, LIPID #### [facility] [address] [place] [address] Dr. Bebeto Alvarado CO2 [Moles/Vol] 27.0 mmol/L Normal 21.0-32.0 [facility] Comment on above: Performed By: #### C MP, LIPID #### [facility] [address] [place] [address] Dr. Bebeto Alvarado Creatinine [Mass/Vol] 0.97 mg/dL Normal 0.55-1.02 [facility] Comment on above: Performed By: #### C MP, LIPID #### [facility] [address] [place] [address] Dr. Bebeto Alvarado EGFR-AF FIJIAN >60 Normal >=60 [facility] Comment on above: Performed By: #### C MP, LIPID #### [facility] [address] [place] [address] Dr. Bebeto Alvarado EGFR-NON AF FIJIAN 59 mL/min/1.73m2 Critically low >=60 [facility] Comment on above: Performed By: #### C MP, LIPID #### [facility] [address] [place] [address] Dr. Bebeto Alvarado Globulin (S) [Mass/Vol] 3.4 g/dL Normal [facility] Comment on above: Performed By: #### C MP, LIPID #### [facility] [address] [place] [address] Dr. Bebeto Alvarado Glucose [Mass/Vol] 103 mg/dL Normal 74-106 [facility] Comment on above: Performed By: #### C MP, LIPID #### [facility] [address] [place] [address] Dr. Bebeto Alvarado Potassium [Moles/Vol] 3.8 mmol/L Normal 3.5-5.1 [facility] Comment on above: Performed By: #### C MP, LIPID #### [facility] [address] [place] [address] Dr. Bebeto Alvarado Protein [Mass/Vol] 7.2 g/dL Normal 6.4-8.2 [facility] Comment on above: Performed By: #### C MP, LIPID #### [facility] [address] [place] [address] Dr. Bebeto Alvarado Sodium [Moles/Vol] 141 mmol/L Normal 136-145 [facility] Comment on above: Performed By: #### C MP, LIPID #### [facility] [address] [place] [address] Dr. Bebeto Alvarado Urea nitrogen [Mass/Vol] 11.0 mg/dL Normal 7.0-18.0 [facility] Comment on above: Performed By: #### C MP, LIPID #### [facility] [address] [place] [address] Dr. eBbeto Alvarado Urea nitrogen/Creatinine [Mass ratio] 11.3 mg/mg Normal [facility] Comment on above: Performed By: #### C MP, LIPID #### [facility] [address] [place] [address] Dr. Bebeto Alvarado URIC ACID SERUMon 11-21-2021 Urate [Mass/Vol] 7.3 mg/dL Critically high 2.6-6.0 [facility] Comment on above: Performed By: #### A 1C #### [facility] [address] [place] [address] Dr. Bebeto Alvarado VITAMIN B12on 11-21-2021 Cobalamin (Vitamin B12) [Mass/Vol] 2123.0 pg/mL Critically high 193.0-986.0 [facility] Comment on above: Performed By: #### A 1C #### [facility] [address] [place] [address] Dr. Bebeto Alvarado Physician Referralon 022 Physician Referral [phone] [id number] Normal [facility] KNEE RIGHT 1 OR 2 Son KNEE RIGHT 1 OR 2 [facility] Department of Radiology [address] [place] [id number] ======== Patient Name: MICHELLE BE : [...] , Exam: KNEE RIGHT 1 OR 2 [facility] ======== KNEE RIGHT 1 OR [...] Electronically signed by:Debra Del Cid. Transcribed by: [email or web address], User Resident: Electronically Signed by: DEBRA DEL [...] [facility] KNEE RIGHT 1 OR 2 [facility] Department of Radiology [address] [place] [id number] ======== Patient Name: MICHELLE BE : 1960 Sex: F Age: Race: White Pt. Location: 84 Patient Status: Ordered Date: 12/07/2018 10:20:00 AM Completed Date: 12/07/2018 10:20 AM Requesting Provider: AHSAN BINGHAM Attending Provider: Report Copy To: Signs & Symptoms: S82.001A Unsp fracture of right patella, init for clos fx I10 History: [place] Comments: , , , Ordering Provider - [...] complications. Electronically signed by:Tomasz Stoll. Transcribed by: [email or web address], User Resident: Electronically Signed by: TOMASZ STOLL [...] [address] [facility] 07-0 KNEE RIGHT 1 OR 2 [facility] Department of Radiology [address] [place] [phone] ======== Patient Name: MICHELLE BE : 1960 Sex: F Age: Race: White Pt. Location: 84 Patient Status: O Ordered Date: 10/06/2018 1:40:00 PM Completed Date: 10/06/2018 01:46 PM Requesting Provider: ASHAN BINGHAM Attending Provider: AHSAN BINGHAM Report Copy [...] osteoarthritis Electronically signed by:Anup Ellison. Transcribed by: [email or web address], User Resident: Electronically Signed by: ANUP ELLISON [...] Ordering Provider - AHSAN BINGHMA PA-C , KNEE RIGHT 1 OR [address] [facility] 08-05 KNEE RIGHT 1 OR 2 [facility] Department of Radiology [address] [place] [phone] ======== Patient Name: MICHELLE BE : [...] effusion Electronically signed by:Anup Ellison. Transcribed by: [email or web address], User Resident: Electronically Signed by: ANUP ELLISON [...] 07-06 KNEE RIGHT 1 OR 2 [facility] Department of Radiology [address] [place] [phone] ======== Patient Name: MICHELLE BE : 1960 Sex: F Age: Race: White Pt. Location: 84 Patient Status: Ordered Date: 07/29/2018 2:10:00 PM Completed Date: 07/29/2018 02:12 PM Requesting Provider: AHSAN BINGHAM Attending Provider: Report Copy To: Signs & Symptoms: S82.001A Unsp fracture of right patella, init for clos fx I10 History: [place] Comments: , , , Ordering Provider - [...] compartment Electronically signed by:Anup Ellison. Transcribed by: [email or web address], User Resident: Electronically Signed by: ANUP ELLISON [...] 3 Son 9 KNEE RIGHT 3 S [facility] Department of Radiology [address] [place] [phone] ======== Patient Name: MICHELLE BE : 1960 Sex: F Age: Race: White Pt. Location: Patient Status: Ordered Date: 07/15/2018 8:45:00 AM Completed Date: 07/15/2018 08:47 AM Requesting Provider: AHSAN BINGHAM Attending Provider: Report Copy To: Signs & Symptoms: S82.001A Unsp fracture of right patella, init for clos fx I10 History: [place] Comments: , , , Ordering Provider - AHSAN BINGHAM PA-C , Exam: KNEE RIGHT 3 [facility] ======== KNEE RIGHT 3 S [...] knee Electronically signed by:Anup Ellison. Transcribed by: [email or web address], User Resident: Electronically Signed by: ANUP ELLISON [...] Duarte MD Date Trans: 07/03/2018 04:28 A/terry [id number] Normal [facility] *ANAEROBIC CULTUREon 019 *ANAEROBIC CULTURE Clinical Report: (D) Specimen/Source: SWAB/RT KNEE Collected: 07/02/2018 13:53 Status: Final Last Updated: 07/07/2018 08:02 CULT RES (Final) No Anaerobes Isolated 5 Days Normal [facility] Comment on above: Performed By: #### 3 0312 #### [address] *WOUND CULTUREon 07-02-2018 *WOUND CULTURE Clinical Report: (D) Specimen/Source: WOUND/INTRAOP SPEC Collected: 07/02/2018 13:53 Status: Final Last Updated: 07/07/2018 10:13 (1) #1 RT KNEE GRAM (Final) Rare Polys No Bacteria Seen CULT RES (Final) No Growth Day 5 Normal [facility] Comment on above: Order Comment: #1 RT KNEE Performed By: #### 3 0343 #### [address] KNEE RIGHT 1 OR [address] [facility] 06-05 KNEE RIGHT 1 OR 2 [facility] Department of Radiology [address] [place] [phone] ======== Patient Name: MICHELLE BE : [...] Electronically signed by:Debra Del Cid. Transcribed by: [email or web address], User Resident: Electronically Signed by: DEBRA DEL CID @ 07/02/2018 02:03 PM Normal [facility] Comment on above: Order Comment: ORIF VS PERCUTANEOUS FIXATION RIGHT PATELLA POC GLUCOSE LABon 07-02-2018 Glucose [Mass/Vol] 108 mg/dL High 70-100 [facility] Comment on above: Performed By: #### 8 5499 #### [address] [place] [address] [place] [address], [facility] APTTon 06-30-2018 aPTT Coag (Bld) [Time] 30.6 [...] THIS PURPOSE. Performed By: #### 5 6101, [id number] #### [facility] [address] [place] [address], [facility] BASIC METABOLIC PANELon 03-2 Calcium [Mass/Vol] 9.7 mg/dL Normal 8.6-10.3 [facility] Comment on above: Performed By: #### 0 0071 #### [facility] [address] [place] [address], [facility] Chloride [Moles/Vol] 102 mmol/L Normal 98-107 [facility] Comment on above: Performed By: #### 0 0071 #### [facility] [address] [place] [address], [facility] CO2 [Moles/Vol] 28 mmol/L Normal 21-31 [facility] Comment on above: Performed By: #### 0 0071 #### [facility] [address] [place] [address], [facility] Creatinine [Mass/Vol] 1.20 mg/dL Normal 0.60-1.20 [facility] Comment on above: Performed By: #### 0 0071 #### [facility] [address] [place] [address], [facility] GFR/1.73 sq M predicted among blacks MDRD (S/P/Bld) [Vol rate/Area] 56 ml/min/1.73sq m Abnormal >60 [facility] Comment on above: Performed By: #### 0 0071 #### [facility] [address] [place] [address], [facility] GFR/1.73 sq M predicted among non-blacks MDRD (S/P/Bld) [Vol rate/Area] 47 ml/min/1.73sq m Abnormal >60 [facility] Comment on above: Performed By: #### 0 0071 #### [facility] [address] [facility]. [address] Glucose [Mass/Vol] 97 mg/dL Normal 70-100 [facility] Comment on above: Performed By: #### 0 0071 #### [facility] [address] Potassium [Moles/Vol] 4.1 mmol/L Normal 3.5-5.1 [facility] Comment on above: Performed By: #### 0 0071 #### [facility] [address] Sodium [Moles/Vol] 137 mmol/L Normal 136-145 [facility] Comment on above: Performed By: #### 0 0071 #### [facility] [address] Urea nitrogen [Mass/Vol] 19 mg/dL Normal 7-25 [facility] Comment on above: Performed By: #### 0 0071 #### [facility] [address] CBC W/DIFFon 06-30-2018 ABS BASOPHILS 0.1 10*3/uL Normal 0.0-0.2 [facility] Comment on above: Performed By: #### 5 0103 #### [facility] [address] [place] [address], [facility] ABS IMM GRANS 0.0 10*3/uL Normal 0.0-0.2 [facility] Comment on above: Performed By: #### 5 0103 #### [facility] [address] [place] [address], [facility] ABS NEUTROPHILS 6.4 10*3/uL Normal 1.6-7.6 [facility] Comment on above: Performed By: #### 5 0103 #### [facility] [address] [place] [address], [facility] Basophils/100 WBC (Bld) 0.7 % Normal 0.0-1.0 [facility] Comment on above: Performed By: #### 5 0103 #### [facility] [address] [place] [address], [facility] Eosinophils (Bld) [#/Vol] 0.2 10*3/uL Normal 0.0-0.5 [facility] Comment on above: Performed By: #### 5 0103 #### [facility] [address] [facility] [place] [address], [facility] Eosinophils/100 WBC (Bld) 1.5 % Normal 0.0-6.0 [facility] Comment on above: Performed By: #### 5 0103 #### [facility] [address] [facility] [address] Erythrocyte distribution width (RBC) [Ratio] 14.4 % Normal 11.5-15.0 [facility] Comment on above: Performed By: #### 5 0103 #### [facility] [address] [facility] [address] [address] Hematocrit (Bld) [Volume fraction] 40.6 % Normal 36.0-45.0 [facility] Comment on above: Performed By: #### 5 3 #### [facility] [address] [facility] [address] Hemoglobin (Bld) [Mass/Vol] 13.3 g/dL Normal 12.0-15.0 [facility] Comment on above: Performed By: #### 5 3 #### [facility] [address] [place] [address], [facility] IMMATURE GRANS 0.4 % Normal 0.0-1.0 [facility] Comment on above: Performed By: #### 3 #### [facility] [address] [facility] [address] Lymphocytes (Bld) [#/Vol] 2.6 10*3/uL Normal 1.2-4.0 [facility] Comment on above: Performed By: #### 3 #### [facility] [address] [facility] [place] [address], [facility] Lymphocytes/100 WBC (Bld) 26.5 % Normal 20.0-45.0 [facility] Comment on above: Performed By: #### 102 #### [facility] [address] [place] [address], [facility] MCH (RBC) [Entitic mass] 27.4 pg Normal 27.0-33.0 [facility] Comment on above: Performed By: #### 102 #### [facility] [address] [facility]. [address] MCHC (RBC) [Mass/Vol] 32.8 g/dL Normal 32.0-35.0 [facility] Comment on above: Performed By: #### 102 #### [facility] [address] [place] [address], [facility] MCV (RBC) [Entitic vol] 83.5 fL Normal 82.0-98.0 [facility] Comment on above: Performed By: #### 3 #### [facility] [address] [facility] [place] [address], [facility] Monocytes (Bld) [#/Vol] 0.5 10*3/uL Normal 0.1-1.0 [facility] Comment on above: Performed By: #### 102 #### [facility] [address] [place] [address], [facility] MONOS 5.0 % Normal 5.0-12.0 [facility] Comment on above: Performed By: #### 102 #### [facility] [address] [facility] [facility] [place] [address], [facility] Neutrophils/100 WBC (Bld) 65.9 % Normal 40.0-72.0 [facility] Comment on above: Performed By: #### 5 0103 #### [facility] [address] [facility] [place] [address], [facility] Nucleated RBC/100 WBC (Bld) [Ratio] 0 % Normal 0-0 [facility] Comment on above: Performed By: #### 5 0103 #### [facility] [address] [place] [address], [facility] PLAT CNT 290 10*3/uL Normal 150-400 [facility] Comment on above: Performed By: #### 5 0103 #### [facility] [address] [place] [address], [facility] RBC (Bld) [#/Vol] 4.86 10*6/uL Normal 3.80-5.00 [facility] Comment on above: Performed By: #### 5 0103 #### [facility] [address] [place] [address], [facility] WBC (Bld) [#/Vol] 9.68 10*3/uL Normal 4.00-10.60 [facility] Comment on above: Performed By: #### 5 3 #### [address] KNEE RIGHT 1 OR 2 VWSon 06-05 KNEE RIGHT 1 OR 2 VWS [facility] Department of Radiology [address] [place] [phone] ======== Patient Name: MICHELLE BE : 1960 Sex: F Age: Race: White Pt. 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 Transcribed by: [email or web address], User Resident: Electronically Signed by: DEBRA DEL CID @ 06/30/2018 11:52 AM Normal [facility] Comment on above: Order Comment: , Vie ws (X-RAY, KNEE): Radiologic Protocol , Weight Bearing?: N , With or Without Brace/Cast/Collar: With , Views (X-RAY, KNEE): Radiologic Protocol , Weight Bearing?: N , With or Without Brace/Cast/Collar: With , , , Ordering Provider - AHSAN BINGHAM PA-C , PROTHROMBIN TIMEon 9 INR Coag (PPP) [Relative time] 0.98 {INR} Normal 0.91-1.16 [facility] Comment on above: Result Comment: ACCC P [...] CHEST 1995;108:[id number]-246S. Performed By: #### 5 6101, [id number] #### [facility] [address] [facility] [address] PT Coag (PPP) [Time] 13.0 s Normal 12.3-14.8 [facility] Comment on above: Result Comment: ALL RESULTS MUST BE INTERPRETED WITH RESPECT TO BLOOD DRAWING ARTIFACT OR DILUTION ERROR OF ANTICOAGULANT AT THE TIME OF SAMPLING. Performed By: #### 5 6101, [id number] #### [address] [place] [address], [facility] KNEE RIGHT [address] [facility] 9 KNEE RIGHT 3 [facility] Department of Radiology [address] [place] [phone] ======== Patient Name: MICHELLE BE : 1960 Sex: F Age: Race: White Pt. Location: Patient Status: O Ordered Date: 06/15/2018 1:35:00 PM Completed Date: 06/15/2018 01:34 PM Requesting Provider: AMPARO ZHANG Attending Provider: AMPARO ZHANG Report Copy To: ADELAIDA CARRION Signs & Symptoms: M17.11 Unilateral primary osteoarthritis, right knee I10 History: [place] Comments: , Weight Bearing?: Y , Weight Bearing?: Y , , , Ordering Provider - AMPARO ZHANG PA-C , Exam: KNEE RIGHT 3 [facility] ======== KNEE RIGHT 3 S [...] effusion Electronically signed by:Anup Ellison. Transcribed by: [email or web address], User Resident: Electronically Signed by: ANUP ELLISON @ 06/15/2018 03:50 PM Normal [facility] Comment on above: Order Comment: , Isaiah ght Bearing?: Y , Weight Bearing?: Y , , , Ordering Mariela ZHANG PA-C , Vital Signs Date Time Vital Sign Value Performing Clinician Facility 05-24-2024 08:19-0500 Body height 162.6 cm [employer] Work Phone: [facility] 05-24-2024 08:19-0500 Body mass index (BMI) [Ratio] 50.29 kg/m2 EMUZE[employer] PA Work Phone: [facility] 05-24-2024 08:19-0500 Body weight 132.9 kg Juany kaptureme PA Work Phone: [facility] 05-24-2024 08:19-0500 Diastolic blood pressure 72 mm[Hg] Juany kaptureme PA Work Phone: [facility] 05-24-2024 08:19-0500 Heart rate 62 /min [employer] PA Work Phone: [facility] 05-24-2024 08:19-0500 Respiratory rate 16 /min Juany Lowe PA Work Phone: [facility] 05-24-2024 08:19-0500 SaO2% (BldA) [Mass fraction] 100 % Juany Kofie PA Work Phone: [facility] 05-24-2024 08:19-0500 Systolic blood pressure 110 mm[Hg] Juany Kofie PA Work Phone: [facility] 05-12-2024 10:04-0500 Body height 162.6 cm Adelaida Aichholz [employer] Work Phone: [facility] 05-12-2024 10:04-0500 Body mass index (BMI) [Ratio] 49.16 kg/m2 Adelaida Aichholz [employer]EE [employer]ER Work Phone: [facility] 05-12-2024 10:04-0500 Body temperature 98.49 [degF] Adelaida Aichholz [employer] Work Phone: [facility] 05-12-2024 10:04-0500 Body weight 129.91 kg Adelaida Aichholz [employer] Work Phone: [facility] 05-12-2024 10:04-0500 Diastolic blood pressure 78 mm[Hg] Adelaida Aichholz [employer] Work Phone: [facility] 05-12-2024 10:04-0500 Heart rate 80 /min Adelaida Aichholz [employer] Work Phone: [facility] 05-12-2024 10:04-0500 Respiratory rate 20 /min Adelaida Aichholz [employer] Work Phone: [facility] 05-12-2024 10:04-0500 SaO2% (BldA) [Mass fraction] 98 % Adelaida Aichholz [employer] Work Phone: [facility] 05-12-2024 10:04-0500 Systolic blood pressure 118 mm[Hg] Adelaida Aichholz [employer] Work Phone: [facility] 03-16-2024 09:53-0500 Body height 162.6 cm Adelaida Aichholz [employer] Work Phone: [facility] 03-16-2024 09:53-0500 Body mass index (BMI) [Ratio] 48.41 kg/m2 Adelaida Carrion [employer] Work Phone: [facility] 03-16-2024 09:53-0500 Body temperature 98.01 [degF] Adelaida Carrion [employer] Work Phone: [facility] 03-16-2024 09:53-0500 Body weight 127.91 kg Adelaida Carrion [employer] Work Phone: [facility] 03-16-2024 09:53-0500 Diastolic blood pressure 80 mm[Hg] Adelaida Carrion [employer] Work Phone: [facility] 03-16-2024 09:53-0500 Heart rate 79 /min Adelaida Carrion [employer] Work Phone: [facility] 03-16-2024 09:53-0500 Respiratory rate 18 /min Adelaida Carrion [employer] Work Phone: [facility] 03-16-2024 09:53-0500 SaO2% (BldA) [Mass fraction] 98 % Adelaida Carrion [employer] Work Phone: [facility] 03-16-2024 09:53-0500 Systolic blood pressure 120 mm[Hg] Adelaida Carrion [employer] Work Phone: [facility] 03-10-2024 15:20-0500 Body height 162.6 cm Rachel Mitchell PA Work Phone: [facility] 03-10-2024 15:20-0500 Body mass index (BMI) [Ratio] 48.41 kg/m2 Rachel Mitchell PA Work Phone: [facility] 03-10-2024 15:20-0500 Body weight 127.91 kg Rachel Mitchell PA Work Phone: [facility] 03-10-2024 15:20-0500 Diastolic blood pressure 68 mm[Hg] Rachel Mitchell PA Work Phone: [facility] 03-10-2024 15:20-0500 Heart rate 74 /min Rachel Stephen PA Work Phone: [facility] 03-10-2024 15:20-0500 Respiratory rate 16 /min Rachel Stephen PA Work Phone: [facility] 03-10-2024 15:20-0500 SaO2% (BldA) [Mass fraction] 98 % Rachel Stephen PA Work Phone: [facility] 03-10-2024 15:20-0500 Systolic blood pressure 102 mm[Hg] Rachel Mitchell PA Work Phone: [facility] 03-01-2024 12:48-0500 Body height 162.6 cm Juany Lowe PA Work Phone: [facility] 03-01-2024 12:48-0500 Body mass index (BMI) [Ratio] 48.92 kg/m2 Juany Lowe PA Work Phone: [facility] 03-01-2024 12:48-0500 Body weight 129.28 kg Jauny Lowe PA Work Phone: [facility] 03-01-2024 12:48-0500 Diastolic blood pressure 88 mm[Hg] Juany Lowe PA Work Phone: [facility] 03-01-2024 12:48-0500 Systolic blood pressure 140 mm[Hg] Juany Lowe PA Work Phone: [facility] 02-16-2024 11:18-0500 Body height 162.6 cm Adelaida Carrion [employer] Work Phone: [facility] 02-16-2024 11:18-0500 Body mass index (BMI) [Ratio] 50.77 kg/m2 Adelaida Carrion [employer] Work Phone: [facility] 02-16-2024 11:18-0500 Body temperature 98.49 [degF] Adelaida Carrion [employer] Work Phone: [place] [id number] 11:18-0500 Body weight 134.17 kg Adelaida Aichholz [employer] F[employer] Work Phone: [facility] 02-16-2024 11:18-0500 Diastolic blood pressure 82 mm[Hg] Adelaida Aichholz [employer] Work Phone: [facility] 02-16-2024 11:18-0500 Heart rate 69 /min Adelaida Aichholz [employer] Work Phone: [facility] 02-16-2024 11:18-0500 Respiratory rate 20 /min Adelaida Aichholz [employer] Work Phone: [facility] 02-16-2024 11:18-0500 SaO2% (BldA) [Mass fraction] 98 % Adelaida Aichholz [employer] Work Phone: [facility] 02-16-2024 11:18-0500 Systolic blood pressure 122 mm[Hg] Adelaida Aichholz [employer]ER Work Phone: [facility] 01-28-2024 13:46-0400 Body height 162.6 cm Adelaida Aichholz [employer] Work Phone: [facility] 01-28-2024 13:46-0400 Body mass index (BMI) [Ratio] 48.99 kg/m2 Adelaida Aichholz [employer] Work Phone: [facility] 01-28-2024 13:46-0400 Body temperature 98.71 [degF] Adelaida Aichholz [employer] Work Phone: [facility] 01-28-2024 13:46-0400 Body weight 129.46 kg Adelaida Aichholz [employer] Work Phone: [facility] 01-28-2024 13:46-0400 Diastolic blood pressure 78 mm[Hg] Adelaida Aichholz [employer]ER Work Phone: [facility] 01-28-2024 13:46-0400 Heart rate 81 /min Adelaida Aichholz [employer] Work Phone: [facility] 01-28-2024 13:46-0400 Respiratory rate 18 /min Adelaida Aichholz [employer] Work Phone: [facility] 01-28-2024 13:46-0400 SaO2% (BldA) [Mass fraction] 99 % Adelaida Aichholz [employer] Work Phone: [facility] 01-28-2024 13:46-0400 Systolic blood pressure 110 mm[Hg] Adelaida Aichholz [employer] Work Phone: [facility] 01-04-2024 09:39-0400 Body height 162.6 cm Adelaida Aichholz [employer] Work Phone: [facility] 01-04-2024 09:39-0400 Body mass index (BMI) [Ratio] 48.75 kg/m2 Adelaida Aichholz [employer] Work Phone: [facility] 01-04-2024 09:39-0400 Body temperature 97.81 [degF] Adelaida Aichholz [employer] Work Phone: [facility] 01-04-2024 09:39-0400 Body weight 128.82 kg Adelaida Aichholz [employer] Work Phone: [facility] 01-04-2024 09:39-0400 Diastolic blood pressure 78 mm[Hg] Adelaida Aichholz [employer] Work Phone: [facility] 01-04-2024 09:39-0400 Heart rate 67 /min Adelaida Aichholz [employer] Work Phone: [facility] 01-04-2024 09:39-0400 Respiratory rate 19 /min Adelaida Aichholz [employer] Work Phone: [facility] 01-04-2024 09:39-0400 SaO2% (BldA) [Mass fraction] 99 % Adelaida Aichholz [employer] Work Phone: [facility] 01-04-2024 09:39-0400 Systolic blood pressure 116 mm[Hg] Adelaida Aichholz [employer] Work Phone: [facility] 12-09-2023 10:140400 Body height 162.6 cm Juany Escalanter [employer] Work Phone: [facility] 12-09-2023 10:14-0400 Body mass index (BMI) [Ratio] 48.92 kg/m2 Juany Gillmor [employer] Work Phone: [facility] 12-09-2023 10:14-0400 Body weight 129.28 kg Juany Singhmor [employer] Work Phone: [facility] 12-09-2023 10:14-0400 Diastolic blood pressure 78 mm[Hg] Juany Gillmor [employer] Work Phone: [facility] 12-09-2023 10:14-0400 SaO2% (BldA) [Mass fraction] 97 % Juany Singhmor [employer] Work Phone: [facility] 12-09-2023 10:14-0400 Systolic blood pressure 122 mm[Hg] Juany Gillmor [employer] Work Phone: [facility] 12-08-2023 15:24-0400 Body height 162.6 cm Sonam Guthrienagel [employer] Work Phone: [facility] 12-08-2023 15:24-0400 Body mass index (BMI) [Ratio] 48.92 kg/m2 Sonam Windnagel [employer] Work Phone: [facility] 12-08-2023 15:24-0400 Body weight 129.28 kg Sonam Windnagel [employer] Work Phone: [facility] 12-08-2023 15:24-0400 Diastolic blood pressure 77 mm[Hg] Sonam Windnagel [employer] Work Phone: [facility] 12-08-2023 15:24-0400 Heart rate 72 /min Sonam Windnagel [employer] Work Phone: [facility] 12-08-2023 15:24-0400 Systolic blood pressure 134 mm[Hg] Sonam Windnagel [employer] Work Phone: [facility] 05-18-2023 16:30-0500 Body height 162.6 cm Adelaida Aichholz [employer] Work Phone: [facility] 05-18-2023 16:30-0500 Body mass index (BMI) [Ratio] 47.89 kg/m2 Adelaida Aichholz [employer] Work Phone: [facility] 05-18-2023 16:30-0500 Body temperature 97.3 [degF] Adelaida Aichholz [employer] Work Phone: [facility] 05-18-2023 16:30-0500 Body weight 126.55 kg Adelaida Aichholz [employer] Work Phone: [facility] 05-18-2023 16:30-0500 Diastolic blood pressure 80 mm[Hg] Adelaida Aichholz [employer] Work Phone: [facility] 05-18-2023 16:30-0500 Heart rate 76 /min Adelaida Aichholz [employer] Work Phone: [facility] 05-18-2023 16:30-0500 Respiratory rate 19 /min Adelaida Aichholz [employer] Work Phone: [facility] 05-18-2023 16:30-0500 SaO2% (BldA) [Mass fraction] 97 % Adelaida Aichholz [employer] Work Phone: [facility] 05-18-2023 16:30-0500 Systolic blood pressure 134 mm[Hg] Adelaida Aichholz [employer] Work Phone: [facility] 03-23-2023 12:10-0500 Diastolic blood pressure 98 mm[Hg] Adelaida Aichholz Work Phone: [facility] 03-23-2023 12:10-0500 Heart rate 76 /min Adelaida Aichholz Work Phone: [facility] 03-23-2023 12:10-0500 Respiratory rate 18 /min Adelaida Aichholz Work Phone: [facility] 03-23-2023 12:10-0500 SaO2% (BldA) [Mass fraction] 99 % Adelaida Carrion Work Phone: [facility] 03-23-2023 12:10-0500 Systolic blood pressure 162 mm[Hg] Adelaida Carrion Work Phone: [facility] 03-23-2023 10:53-0500 Body height 162.56 cm Adelaida Carrion Work Phone: [facility] 03-23-2023 10:53-0500 Body weight 125.64 kg Adelaida Carrion Work Phone: [facility] 12-19-2022 14:55-0400 Body height 162.56 cm Rosemary Kirkland Other [employer] Other 12-19-2022 14:55-0400 Body mass index (BMI) [Ratio] 47.85 kg/m2 Rosemary Kirkland Other [employer] Other 12-19-2022 14:55-0400 Body temperature 97.8 [degF] Rosemary Vernonmond Other [employer] Other 12-19-2022 14:55-0400 Body weight 126.46 kg Rosemary Vernonmond Other [employer] Other 12-19-2022 14:55-0400 Respiratory rate 20 /min Rosemary Vernonmond Other [employer] Other 12-19-2022 14:55-0400 SaO2% (BldA) [Mass fraction] 95 % Rosemary Vernonmond Other [employer] Other 11-20-2022 13:12-0400 Body temperature 97.7 [degF] Adelaida Sousaholz Work Phone: [facility] 11-20-2022 13:12-0400 SaO2% (BldA) [Mass fraction] 96 % Adelaida Yinghholz Work Phone: [facility] 11-20-2022 07:44-0400 Diastolic blood pressure 90 mm[Hg] Adelaida Merryholz Work Phone: [facility] 11-20-2022 07:44-0400 Heart rate 103 /min Adelaida Merryholz Work Phone: [facility] 11-20-2022 07:44-0400 Systolic blood pressure 152 mm[Hg] Adelaida Aichholz Work Phone: [facility] 11-19-2022 20:00-0400 Respiratory rate 18 /min Adelaida Sousaholz Work Phone: [facility] 11-18-2022 15:18-0400 Body height 162.56 cm Adelaida Sousaholz Work Phone: [facility] 11-17-2022 09:00-0400 Body weight 122.92 kg Adelaidamyrna Sousaholz Work Phone: [facility] Encounters Encounter Date Encounter Type Care Provider Facility Start: 05-24-2024 End: 05-24-2024 Bamboo flowsheet Juany Lowe PA Work Phone: [facility] Start: 05-24-2024 End: 05-24-2024 Bamboo 1RP Mediaheet Juany Lowe PA Work Phone: [facility] Start: 05-24-2024 End: 05-24-2024 Office outpatient visit 25 minutes Juany Kirbye PA Work Phone: [facility] Comment on above: Cerebrovascular acci dent (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 (CMS/HCC) (Primary Dx); OSMANY (obstructive sleep apnea); Metabolic encephalopathy; Restless leg; Degeneration of intervertebral disc of lumbar region with discogenic back pain and lower extremity pain Start: 05-24-2024 End: 05-24-2024 ambulatory JUANY LEGGETT Not Available Start: 05-23-2024 End: 05-23-2024 ambulatory Syeda Mancuso MD Facility: [facility] Start: 05-13-2024 ambulatory Eduardo Monk Facility:[facility] Start: 05-12-2024 End: 05-12-2024 Bamboo flowsheet Adelaida Carrion [employer] Work Phone: [facility] Start: 05-12-2024 End: 05-12-2024 Bamboo flowsheet Adelaida Carrion [employer] F[employer] Work Phone: [facility] Start: 05-12-2024 End: 05-12-2024 Office outpatient visit 25 minutes Adelaida Carrion [employer] Work Phone: [facility] Comment on above: Primary hypertension (CMS/HCC) [...] MD Facility: [facility] Start: 04-12-2024 End: 04-12-2024 Refill Juany Leggett PA Work Phone: [facility] [address] Comment on above: Transient alteration of awareness (Primary Dx); Restless leg Start: 04-07-2024 End: 04-07-2024 Patient encounter procedure David Foster PhD Work Phone: [facility] Comment on above: Metabolic encephalop athy (Primary Dx); Memory change; Altered mental status, unspecified altered mental status type; Concentration deficit; PTSD (post-traumatic stress disorder) (CMS/HCC); Bipolar affective disorder, remission status unspecified ([facility]/HCC); Family history of dementia; 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[facility]); OSMANY (obstructive sleep apnea) Start: 04-07-2024 End: 04-07-2024 ambulatory ADELAIDA AICHHOLZ Not Available Start: 03-22-2024 End: 03-22-2024 ambulatory RACHEL MITCHELL Not Available Start: 03-16-2024 End: 03-16-2024 Bamboo flowsheet Adelaida Sheyla [employer] FARMER Work Phone: [facility] Start: 03-16-2024 End: 03-16-2024 Bamboo flowsheet Adelaida Carrion [employer]FFEE FARMER Work Phone: [facility] Start: 03-16-2024 End: 03-16-2024 Office outpatient visit 25 minutes Adelaidamyrna Carrion [employer]FF[employer] F[employer]ER Work Phone: [facility] Comment on above: Metabolic encephalop athy (Primary Dx); OSMANY (obstructive sleep apnea); Morbid obesity (CMS/HCC); Bilateral lower extremity edema; Tobacco dependence; Bipolar disorder with severe depression (CMS/HCC); At risk for polypharmacy; Anxiety; Primary hypertension ([facility]); Right bundle branch block (RBBB) determined by electrocardiography Start: 03-16-2024 End: 03-16-2024 ambulatory ADELAIDA AICHHOLZ Not Available Start: 03-15-2024 End: 03-16-2024 Telephone encounter David Norman MA [facility] Start: 03-14-2024 End: 03-14-2024 Bamboo flowsheet David Foster PhD Work Phone: [facility] Start: 03-14-2024 End: 03-14-2024 Bamboo flowsheet David Foster PhD Work Phone: [facility] Start: 03-14-2024 End: 03-14-2024 ambulatory DAVID FOSTER Not Available Start: 03-14-2024 End: 03-14-2024 Patient encounter procedure David Foster PhD Work Phone: [facility] Comment on above: Altered mental statu s, unspecified altered mental status type (Primary Dx); Memory change; Concentration deficit; 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 (CMS/HCC); PTSD (post-traumatic stress disorder) (CMS/HCC); Bipolar affective disorder, remission status unspecified (CMS/HCC); Family history of dementia Start: 03-10-2024 End: 03-10-2024 Office outpatient visit 25 minutes Rachel REDDY Work Phone: [facility] Comment on above: Altered mental statu s, unspecified altered mental status type (Primary Dx); Restless leg; 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CMS/HCC); OSMANY (obstructive sleep apnea) Start: 03-10-2024 End: 03-10-2024 ambulatory RACHEL MITCHELL Not Available Start: 03-03-2024 End: 03-07-2024 Evaluation and management of inpatient Adelaida Carrion Facility:[facility] Start: 03-02-2024 End: 03-04-2024 Clinisync Result Encounter Generic External Data Provider [facility] External Department Unsolicited Start: 03-02-2024 End: 03-04-2024 Clinisync Result Encounter Generic External Data Provider [facility] External Department Unsolicited Start: 03-02-2024 End: 03-02-2024 Refill Adelaida Carrion [employer]FF[employer] F[employer] Work Phone: [facility] Comment on above: Yeast infection of t he skin Start: 03-01-2024 End: 03-01-2024 ambulatory JUANY LEGGETT Not Available Start: 03-01-2024 End: 03-01-2024 Office outpatient visit 25 minutes Juany REDDY Work Phone: [facility] [address] Comment on above: Metabolic encephalop athy (Primary Dx); OSMANY (obstructive sleep apnea); Restless leg; 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 (CMS/HCC); Degeneration of intervertebral disc of lumbar region with discogenic back pain and lower extremity pain; Memory change Start: 02-28-2024 End: 02-29-2024 Refill Adelaida Carrion [employer] Work Phone: [facility] Comment on above: Allergic rhinitis, u nspecified Start: 02-24-2024 End: 02-24-2024 Refill Adelaida Carrion [employer] Work Phone: [facility] Comment on above: Essential (primary) hypertension (CMS/HCC); Allergic rhinitis, unspecified Start: 02-16-2024 End: 02-16-2024 Bamboo flowsheet Adelaida Carrion [employer] F[employer]ER Work Phone: [facility] Start: 02-16-2024 End: 02-23-2024 Clinisync Result Encounter Adelaida Carrion [employer]FFEE FARMER Work Phone: [facility] External Department Unsolicited Start: 02-16-2024 End: 02-23-2024 Clinisync Result Encounter Adelaida Carrion [employer]EE F[employer]ER Work Phone: [facility] External Department Unsolicited Start: 02-16-2024 End: 02-16-2024 Patient encounter procedure Adelaida Carrion [employer]EE F[employer]ER Work Phone: [facility] Start: 02-16-2024 End: 02-16-2024 Periodic preventive med est patient 40-64yrs Adelaida Carrion [employer] F[employer]ER Work Phone: [facility] Comment on above: Well woman exam with routine gynecological exam (Primary Dx); Morbid obesity (CMS/HCC) Start: 02-16-2024 End: 02-16-2024 ambulatory ADELAIDA CARRION Not Available Start: 02-04-2024 End: 02-04-2024 Refill Sonam Brown [employer] Work Phone: [facility] Comment on above: Restless leg Start: 01-28-2024 End: 01-28-2024 Bamboo flowsheet Adelaida Carrion [employer]FF[employer] FARMER Work Phone: [facility] Start: 01-28-2024 End: 01-28-2024 Bamboo flowsheet Adelaida Sheyla [employer]ER Work Phone: [facility] Start: 01-28-2024 End: 01-28-2024 Office outpatient visit 15 minutes Adelaida Sheyla [employer] Work Phone: [facility] Comment on above: Acute cystitis witho ut hematuria (Primary Dx); Tobacco dependence; Needs flu shot; Morbid obesity ([facility]/HCC) Start: 01-28-2024 End: 01-28-2024 ambulatory ADELAIDA CARRION Not Available Start: 01-25-2024 End: 01-25-2024 ambulatory Syeda Mancuso MD Facility:[facility] Start: 01-21-2024 End: 01-25-2024 Clinisync Result Encounter Generic External Data Provider [facility] External Department Unsolicited Start: 01-21-2024 End: 01-25-2024 Clinisync Result Encounter Generic External Data Provider [facility] External Department Unsolicited Start: 01-05-2024 End: 01-05-2024 Clinisync Result Encounter Adelaida Carrion [employer] F[employer] Work Phone: [facility] External Department Unsolicited Start: 01-05-2024 End: 01-05-2024 Clinisync Result Encounter Adelaida Carrion [employer] Work Phone: [facility] External Department Unsolicited Start: 01-04-2024 End: 01-04-2024 Bamboo flowsheet Adelaida Carrion [employer] Work Phone: [facility] Start: 01-04-2024 End: 01-04-2024 Bamboo flowsheet Adelaida Sheyla [employer] Work Phone: [facility] Start: 01-04-2024 End: 01-04-2024 Office outpatient visit 25 minutes Adelaida Carrion [employer] Work Phone: [facility] Comment on above: Bilateral lower extr emity edema (Primary Dx); Essential (primary) hypertension (CMS/HCC); Allergic rhinitis, unspecified; OSMANY (obstructive sleep apnea); Primary hypertension (CMS/HCC); Morbid obesity (CMS/HCC) Start: 01-04-2024 End: 01-04-2024 ambulatory ADELAIDA AICHHOLZ Not Available Start: 12-30-2023 End: 12-30-2023 Refill Adelaida Aichholz [employer] Work Phone: [facility] Comment on above: Lower extremity elis a Start: 12-09-2023 End: 12-09-2023 Office outpatient visit 25 minutes Juany Caballero [employer] Work Phone: [facility] [address] Comment on above: OSMANY (obstructive sle ep apnea) (Primary Dx); Restless leg Start: 12-09-2023 End: 12-09-2023 ambulatory JUANY CABALLERO Not Available Start: 12-08-2023 End: 12-08-2023 ambulatory SONAM C WINDNAGEL Not Available Start: 12-08-2023 End: 12-08-2023 Office outpatient visit 25 minutes Sonam C Windnagel [employer] Work Phone: [employer] [address] Comment on above: 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CMS /HCC) (Primary Dx); Restless leg; Metabolic encephalopathy Start: 12-08-2023 End: 12-08-2023 Bamboo flowsheet Sonam C Windnagel [employer] Work Phone: [facility] [address] Start: 12-08-2023 End: 12-08-2023 Bamboo flowsheet Sonam C Windnagel [employer] Work Phone: [facility] [address] Start: 11-27-2023 End: 11-27-2023 Refill Adelaida Aichholz [employer] Work Phone: [facility] Comment on [...] 06-29-2023 End: 06-29-2023 ambulatory Syeda Mancuso MD Facility:[facility] Start: 05-21-2023 Refill Adelaida Carrion [employer] Work Phone: [facility] Comment on above: Acute cystitis with hematuria (Primary Dx) Start: 05-18-2023 End: 05-18-2023 Office outpatient visit 25 minutes Adelaida Carrion [employer] Work Phone: [facility] Comment on above: Encounter for annual wellness visit (AWV) in Medicare patient (Primary Dx); OSMANY (obstructive sleep apnea); Chronic pain disorder; Gastroesophageal reflux disease, unspecified whether esophagitis present; Overactive bladder; Lower extremity edema; Pre-diabetes; Morbid obesity (CMS/HCC); Yeast infection of the skin; Tobacco dependence; Mood disorder ([facility]); Primary hypertension ([facility]); Left hip pain; Open wound of anterior abdominal wall, initial encounter Start: 05-18-2023 Bamboo flowsheet Adelaida Carrion [employer] Work Phone: [facility] Start: 05-18-2023 Bamboo flowsheet Adelaida Carrion [employer] Work Phone: [facility] Start: 05-18-2023 End: 05-18-2023 Patient encounter procedure Adelaida Carrion [employer] Work Phone: [facility] Start: 03-23-2023 End: 03-23-2023 Admission to same day surgery center Adelaida Carrion Work Phone: [facility] Work Phone: Start: 03-23-2023 End: 03-23-2023 ambulatory Adelaida Carrion Work Phone: [facility] Work Phone: Start: 02-12-2023 End: 02-12-2023 ambulatory Jace Graham Other [employer] Other Start: 02-12-2023 Telephone encounter Jace CORADO [employer] Start: 12-19-2022 End: 12-19-2022 ambulatory Rosemary Kirkland Other [facility] [employer] Other Start: 12-19-2022 Office outpatient ne w 10 minutes Rosemary Kirkland [facility] Start: 11-17-2022 End: 11-20-2022 Evaluation and management of inpatient Adelaida Carrion Work Phone: [facility] [place] [address] Work Phone: Start: 09-04-2022 ambulatory ARIAN JOHNSON . Facili ty:[facility] Start: 08-26-2022 ambulatory NARENDRANATH LAKSHMIPATHY . Facility:[facility] Start: 08-08-2022 End: 08-09-2022 ambulatory LIVIER CARRION Facility:[facility] Start: 07-25-2022 End: 07-26-2022 ambulatory SUPERVISOR BLASTING ADELAIDA CARRION Facility:H1 Start: 07-15-2022 End: 07-15-2022 ambulatory NARENDRANATH LAKSHMIPATHY . Facility:H1 Start: 07-11-2022 ambulatory NARENDRANATH LAKSHMIPATHY . Facility:H1 Start: 06-26-2022 End: 06-27-[address] FNIA NIXON . Facility:H1 Start: 06-11-2022 ambulatory LIVIER CARRION Facil ity:H1 Start: 05-21-2022 End: 03-08-2023 ambulatory LIVIER CARRION Facility:H1 Start: 05-08-2022 End: 05-09-2022 ambulatory LIVIER CARRION Facility:H1 Start: 04-28-2022 End: 04-28-2022 ambulatory LIVIER CARRION Facility:H1 Start: 04-03-2022 End: 04-04-[address] FINA NIXON . Facility:H1 Start: 03-19-2022 End: 03-20-2022 ambulatory LIVIER CARRION Facility:H1 Start: 02-20-2022 End: 02-20-2022 ambulatory GILMER NEVES Facility:H1 Start: 01-10-2022 End: 02-12-2022 ambulatory BRIDGETTE Ca [facility] Facility:H1 Start: 01-02-2022 End: 01-03-[address] FINA NIXON . Facility:H1 Start: 01-01-2022 End: 01-02-2022 ambulatory BRIDGETTE Ca [facility] Facility:H1 Start: 12-16-2021 End: 12-16-2021 ambulatory LIVIER WITT YINGMarquesGERONIMONena Facility:H1 Start: 11-21-2021 End: 11-22-[address] DOCTOR BERGERON Facility:H1 Start: 10-03-2021 End: 10-04-[address] FINA NIXON . Facility:H1 Start: 09-19-[address] FINA NIXON . Faci lity:H1 Start: 09-12-2021 End: 09-12-2021 ambulatory LIVIER SOUSAGERONIMONean Facility:H1 Start: 08-20-2021 End: 08-20-[address] FINA NIXON . Facility:H1 Start: 07-02-2018 End: 07-03-2018 Patient encounter procedure SUKI ESCALANTE Facility:[facility] Procedures Date Procedure Procedure Detail Performing Clinician Start: 03-02-2024 BLOOD CULTURE 1 Generic External Data Provider Start: 02-16-2024 IGP,APTIMA HPV,AGE GDLN Adelaida Sheyla [employer]EE [employer]ER Work Phone: Start: 01-28-2024 Urnls dip stick/tabl et rgnt non-auto w/o micrscp Adelaida Carrion [employer] Work Phone: Start: 01-21-2024 MHPT CULT,URINE Generic External Data Provider Start: 01-05-2024 ALL BASIC METABOLIC PANEL Adelaida Sheyla [employer]ER Work Phone: Start: 09-18-2023 Mammography Adelaida Carpenter rachel [employer]FFEE FARMER Work Phone: Start: 03-23-2023 Screening colonoscopy L oneal Sheyla Work Phone: Start: 03-23-2023 Colonoscopy Adelaida Yingshira rachel [employer]ER Work Phone: Start: 09-15-2022 Mammography Adelaida pereznena [employer] F[employer]ER Work Phone: Start: 08-28-2022 Microscopic observat ion [Identifier] in Cervix by Cyto stain Adelaida Sheyla [employer]EE FARMER Work Phone: Start: 07-02-2018 ANESTH KNEE AREA SURGERY CHAPARRITA HENDRICKS Start: 07-02-2018 REMOVAL OF SUPPORT IMPLANT SUKI EBRAHEIM Start: 07-02-2018 TREAT KNEECAP FRACTURE SUKI EBRAHEIM Plan of Treatment Date Care Activity Detail Author Start: 03-23-2033 Screening for malign ant neoplasm of colon [facility] Start: 08-28-2025 Screening for malign ant neoplasm of cervix [facility] Start: 02-15-2025 Medicare Annual Well ness (AWV) Medicare Annual Wellness (AWV) [facility] Start: 09-17-2024 Screening for malign ant neoplasm of breast Mammogram [facility] Start: 08-16-2024 End: 08-16-2024 Patient encounter procedure 08/16/2024 11:30 AM EDT Office Visit [facility] [address] [place] [phone] Adelaida Carrion NP [address] [place] [phone] [facility] Start: 08-11-2024 End: 08-11-2024 Patient encounter procedure 08/11/2024 10:30 AM EDT Office Visit [facility] [address] [place] [address] Adelaida Carrion, BRIANA [address] [place] [address] [facility] Start: 07-26-2024 End: 07-26-2024 Patient encounter procedure 07/26/2024 11:00 AM EDT Office Visit [facility] [address] [place] [phone] Juany Leggett PA [address] [place], [place] [id number] [facility] Start: 06-22-2024 End: 06-22-2024 Patient encounter procedure 06/22/2024 11:20 AM EDT Office Visit [facility] [place] [facility] [address] [place] [phone] Juany Leggett PA [address] [place] [address] [facility] [place] [facility] Start: 05-24-2024 End: 05-24-2024 Patient encounter procedure [facility] [place] [facility] Comment on above: Arrived Start: 05-18-2024 Medicare Annual Well ness (AWV) Medicare Annual Wellness (AWV) [facility] Start: 05-12-2024 End: 05-12-2024 [facility] Comment on above: Primary hypertension (CMS/HCC) (Primary Dx); Chronic kidney disease, stage 3a (HCC) (CMS/HCC); Morbid (severe) obesity due to excess calories (CMS/HCC); Body mass index (BMI) 45.0-49.9, adult (CMS/HCC); OSMANY (obstructive sleep apnea); Hemiparesis, right (CMS/HCC); Gastroesophageal reflux disease, unspecified whether esophagitis present; Metabolic encephalopathy Start: 04-07-2024 End: 04-07-2024 Patient encounter procedure 04/07/2024 12:30 PM EST Office Visit [facility] [address] [phone] [facility] Start: 04-04-2024 End: 04-04-2024 Patient encounter procedure 04/04/2024 1:20 PM EST Office Visit [facility] [address] [place] [address] Adelaida Carrion NP [address] [place] [address] [facility] Start: 03-22-2024 End: 03-22-2024 Clinical Support 03/22/2024 10:00 AM EST Clinical Support [facility] [place] [facility] [address] [place] [phone] [facility] Start: 03-16-2024 End: 03-16-2024 Patient encounter procedure [facility] Comment on above: Metabolic encephalop athy (Primary Dx); OSMANY (obstructive sleep apnea); Morbid obesity (CMS/HCC); Bilateral lower extremity edema; Tobacco dependence; Bipolar disorder with severe depression (CMS/HCC); At risk for polypharmacy; Anxiety Start: 03-14-2024 End: 03-14-2024 Patient encounter procedure 03/14/2024 10:00 AM EST Office Visit [facility] [address] [phone] David Foster, PhD [address] [place], [place] [phone] [facility] Start: 03-11-2024 End: 03-11-2025 EEG 2 Hour Routine EEG 2 Hour Routine Neurology Routine Altered mental status, unspecified altered mental status type Expected: 03/11/2024 (Approximate), Expires: 03/11/2025 [facility] Work Phone: Comment on above: Expected: 03/11/2024 (Approximate), Expires: 03/11/2025 Start: 03-10-2024 End: 03-10-2024 Patient encounter procedure 03/10/2024 3:40 PM EST Office Visit [facility] [address] [place] [phone] Rachel Mitchell PA [address] [place], [place] [phone] [facility] Start: 03-01-2024 End: 03-01-2024 Patient encounter procedure 03/01/2024 12:00 PM EST Office Visit [facility] [place] [facility] [address] [place] [phone] Juany Leggett PA [address] [place], [place] [phone] [facility] [place] [facility] Start: 02-29-2024 End: 02-29-2024 Patient encounter procedure 02/29/2024 2:40 PM EST Office Visit [facility] [place] [facility] [address] [place] [phone] Sonam Brown, COFFEE FARMER [address] [place] [address] [facility] [place] [facility] Start: 02-16-2024 End: 02-15-2025 THIN PREP TIS PAP AND HR HPV DNA THIN PREP TIS PAP AND HR HPV DNA Pathology and Cytology Routine Well woman exam with routine gynecological exam Expected: 02/16/2024 (Approximate), Expires: [facility]/15/[facility] Comment on above: Expected: 02/16/2024 (Approximate), Expires: 02/15/2025 Start: 02-16-2024 End: 02-16-2024 Patient encounter procedure 02/16/2024 11:30 AM EST [facility] [address] [place] [phone] Adelaida Carrion NP [address] [place] [phone] [facility] Start: 02-04-2024 Influenza vaccination Influenza Vacc ine (#1) [facility] Comment on above: Postponed from 12/05 (Patient Does Not Have Time) Start: 01-28-2024 End: 01-27-2025 URINARY TRACT INFECTION (HTRX) URINARY TRACT INFECTION (HTRX) Lab Routine Acute cystitis without hematuria Expected: 01/28/2024 (Approximate), Expires: 01/27/2025 [facility] Work Phone: Comment on above: Expected: 01/28/2024 (Approximate), Expires: 01/27/2025 Start: 01-28-2024 End: 01-28-2024 Patient encounter procedure [facility] Comment on above: Tobacco dependence ( Primary Dx) Start: 01-04-2024 End: 01-03-2025 Basic metabolic 1998 panel - Serum or Plasma Basic metabolic panel Lab Routine Bilateral lower extremity edema Expected: 01/04/2024 (Approximate), Expires: 01/03/2025 [facility] Work Phone: Comment on above: Expected: 01/04/2024 (Approximate), Expires: 01/03/2025 Start: 01-04-2024 End: 01-04-2024 Patient encounter procedure [facility] Comment on above: Essential (primary) hypertension (CMS/HCC); Allergic rhinitis, unspecified Start: 12-09-2023 End: 12-09-2023 Patient encounter procedure 12/09/2023 10:30 AM EDT Office Visit [facility] [place] [facility] [address] [place] [phone] Juany Caballero NP [address] [place], [place] [facility] [place] [facility] Start: 12-08-2023 End: 12-08-2023 Patient encounter procedure 12/08/2023 3:20 PM EDT Office Visit [facility] [place] [facility] [address] [place] [phone] Sonam Brown NP [address] [place], [place] [phone] [facility] [place] [facility] Start: 09-16-2023 Screening for malign ant neoplasm of breast Mammogram [facility] Start: 08-17-2023 End: 08-17-2023 Patient encounter procedure 08/17/2023 9:20 AM EDT Office Visit [facility] [address] [place] [address] Adelaida Carrion NP [address] [place] [phone] [facility] Start: 05-22-2023 End: 05-22-2023 Patient encounter procedure 05/22/2023 8:45 AM EST Office Visit [facility] [address] [facility] [address] [place] [address] Travon Hines PA [address] [facility] [address] [place] [address] [facility] Start: 05-18-2023 End: 05-18-2023 Patient encounter procedure 05/18/2023 4:30 PM EST Office Visit [facility] [address] [place] [address] Adelaida Carrion NP [address] [place] [phone] Arrived [facility] Comment on above: Arrived Start: 05-18-2023 End: 05-18-2024 XR Hip - left 3 Views XR hip left 2 or 3 views Imaging Routine Left hip pain Expected: 05/18/2023 (Approximate), Expires: 05/18/2024 [facility] Work Phone: Comment on above: Expected: 05/18/2023 (Approximate), Expires: 05/18/2024 Start: 03-23-2023 [facility] Start: 11-20-2022 [facility] Start: 11-18-2022 Referral to clinical inside sales advisor [facility] Start: 11-17-2022 Hospital admission [facility] Start: 11-17-2022 [facility] Start: 12-06-1991 Screening for malign ant neoplasm of cervix HPV/Cotest [facility] Start: 1960 Medicare Annual Well ness (AWV) Medicare Annual Wellness (AWV) [facility] Start: 1960 Screening for malign ant neoplasm of colon [facility] BLOOD CULTURE 1 BLOOD CULTURE 1 Lab Routine 03/02/2024 3:20 AM EST [facility] Patient Education [facility] Work Phone: Patient referral [facility] Work Phone: [facility] Immunizations Immunization Date Immunization Notes Care Provider Fa [facility] 01-28-2024 Influenza, injectabl e, Madin Nevaeh Canine Kidney, preservative free, quadrivalent Adelaida Aichholz [employer] Work Phone: [facility] 08-17-2023 zoster vaccine recombinant Adelaida Aichholz [employer] Work Phone: [facility] 02-13-2023 influenza, injectabl e, quadrivalent, preservative free Adelaida Aichholz [employer] Work Phone: [facility] 02-13-2023 SARS-COV-2 (COVID-19 ) vaccine, mRNA, spike protein, LNP, PF, 50 mcg/0.5 mL Adelaida Aichholz [employer] Work Phone: [facility] 02-13-2023 influenza virus vaccine, unspecified formulation Adelaida Aichholz [employer]ER Work Phone: [facility] 02-19-2022 diphtheria, tetanus toxoids and pertussis vaccine Adelaida Aichholz [employer] F[employer]ER Work Phone: [facility] 03-02-2021 Moderna SARS-CoV-2 Vaccination Adelaida Aichholz [employer]ER Work Phone: [facility] 08-24-2020 Moderna SARS-CoV-2 Vaccination Adelaida Aichholz [employer]ER Work Phone: [facility] 07-27-2020 Moderna SARS-CoV-2 Vaccination Adelaida Sousabob [employer] F[employer]ER Work Phone: [facility] 05-28-2018 influenza, injectabl e, quadrivalent, preservative free Adelaida Sousabob Work Phone: [facility] 2017 pneumococcal conjuga te vaccine, 13 valent Adelaida Yingmarquesbob [employer]ER Work Phone: [facility] Payers Date Payer Category Payer Medicare [id number] 2022 Self-pay [id number] 2022 Medicare [id number] 2022 Medicare (Managed Care) [facility] MEDICARE [id number] 2008 Unknown [id number] 1961 Unknown [id number] 2.16.840.1.592407.3.579.2 .647 1961 Unknown [id number] 2.16.840.1.660793.3.579.2 .593 1961 Unknown [id number] 2.16.840.1.400992.3.579.2 .593 1961 Unknown [id number] 2.16.840.1.475260.3.579.2 .593 1961 Unknown [id number] 2.16.840.1.600930.3.579.2 .593 1961 Unknown [id number] 2.16.840.1.374532.3.579.2 .593 1961 Unknown [id number] 2.16.840.1.182764.3.579.2 .593 1961 Unknown [id number] 2.16.840.1.211784.3.579.2 .593 1961 Unknown [id number] 2.16.840.1.025047.3.579.2 .593 1961 Unknown [id number] 2.16.840.1.740987.3.579.2 .593 1961 Unknown [id number] 2.16.840.1.470605.3.579.2 .593 1961 Unknown [id number] 2.16.840.1.950481.3.579.2 .593 1961 Unknown [id number] 2.16.840.1.286373.3.579.2 .593 1961 Unknown [id number] 2.16.840.1.682584.3.579.2 .593 1961 Unknown [id number] 2.16.840.1.497549.3.579.2 .593 1961 Unknown [id number] 2.16.840.1.029008.3.579.2 .593 1961 Unknown [id number] 2.16.840.1.411672.3.579.2 .593 1961 Unknown [id number] 2.16.840.1.669642.3.579.2 .593 1961 Unknown [id number] 2.16.840.1.655656.3.579.2 .593 1961 Unknown [id number] 2.16.840.1.390552.3.579.2 .593 1961 Unknown [id number] 2.16.840.1.550148.3.579.2 .593 1961 Unknown [id number] 2.16.840.1.868162.3.579.2 .593 1961 Unknown [id number] 2.16.840.1.783303.3.579.2 .593 1961 Unknown [id number] 2.16.840.1.832914.3.579.2 .593 1961 Unknown [id number] 2.16.840.1.128094.3.579.2 .593 1961 Unknown [id number] 2.16.840.1.772425.3.579.2 .125 1961 Unknown [id number] 2.16.840.1.348783.3.579.2 .125 1961 Unknown [id number] 2.16.840.1.444497.3.579.2 .1259 1961 Unknown [id number] 2.16.840.1.509700.3.579.2 .125 1961 Unknown [id number] 2.16.840.1.258078.3.579.2 .125 1961 Unknown [id number] 2.16.840.1.960564.3.579.2 .125 1961 Unknown [id number] 2.16.840.1.974631.3.579.2 .125 1961 Unknown [id number] 2.16.840.1.537529.3.579.2 .1259 1961 Unknown [id number] 2.16.840.1.792499.3.579.2 .1258 1961 Unknown [id number] 2.16.840.1.134330.3.579.2 .1258 1961 Unknown [id number] 2.16.840.1.947753.3.579.2 .1258 1961 Unknown [id number] 2.16.840.1.306928.3.579.2 .1258 1961 Unknown [id number] 2.16.840.1.917432.3.579.2 .1258 1961 Unknown [id number] 2.16.840.1.434669.3.579.2 .1258 1961 Unknown [id number] 2.16.840.1.432352.3.579.2 .1258 1961 Unknown [id number] 2.16.840.1.360935.3.579.2 .1258 1961 Unknown [id number] 2.16.840.1.812321.3.579.2 .1258 1961 Unknown [id number] 2.16.840.1.732420.3.579.2 .1258 1961 Unknown [id number] 2.16.840.1.709065.3.579.2 .1258 1961 Unknown [id number] 2.16.840.1.310998.3.579.2 .1258 1961 Unknown [id number] 2.16.840.1.337038.3.579.2 .1961 Unknown [id number] 2.16.840.1.141988.3.579.2 .1961 Unknown [id number] 2.16.840.1.131351.3.579.2 .1961 Unknown [id number] 2.16.840.1.821973.3.579.2 .1959 Medicare [id number] 1959 Unknown [id number] Private Health Insurance [facility] [id number] Unknown [id number] 2.16.840.1.536078.3.579.2 .531 Unknown [id number] 2.16.840.1.146491.3.579.2 .531 Social History Date Type Detail Facility Start: 11-18-2022 End: 10-14-2023 Tobacco smoking status NHIS Ex-smoker (finding) [facility] Start: 1960 Sex Assigned At Female [facility] Start: 03-25-2023 End: 08-16-2023 Sex Assigned At [facility] Start: 04-06-1976 End: 04-06-2016 History of tobacco use Current smoker [facility] Start: 04-06-1976 End: 04-06-2016 History of tobacco use Cigarette Smoker [facility] Start: 02-09-2023 End: 08-16-2023 Cigarettes smoked current (pack per day) - Reported 1 [facility] Start: 02-09-2023 End: 10-14-2023 Tobacco use and exposure Smokeless tobacco non-user [facility] Start: 05-18-2023 End: 05-12-2024 Alcohol intake Lifetime non-drinker (finding) [facility] Start: 11-13-2022 Alcohol Comment caffeine intake: 1-2 cups per day. [facility] Start: 10-01-2022 Gender identity Identifies as female gender (finding) [facility] Start: 10-01-2022 Sexual orientation Heterosexual (finding) [facility] Within the last year , have [...] 11-20-2022 Functional status Patient at [facility] Work Phone: Mental Status Date Assessment Result Facility 11-20-2022 Cognitive function Cognitive Sta tus Patient is Progressing Toward [facility] Work Phone: Clinical Notes 10-03-2021 to 05-12-2024 VALERIE LU - 05/12/2024 10:00 AM ESTAdelaida Carrion, BRIANA - 05/12/2024 10:00 AM ESTLisa Sheyla, COFFEE FARMER - 05/12/2024 6:42 AM ESTLisa Sheyla, BRIANA - 05/12/2024 6:41 AM ESTPatient Instructions Note Date & Type Note Facility 05-12-2024 History of Present illness Narrative A1c 4.9 Images from the original note were not included. Michelle L Eisenhower is a 63 y.o. female presents with [...] includes CVA. There is no history of CAD/SC, heart failure or PVD. GERD She reports [...] biotin 5 MG tablet Pt taking OTC (Appfolio) Calcium Citrate-Vitamin D (CITRACAL + D PO) Pt taking OTC (Gruvi) carvedilol (COREG) 12.5 mg, Oral, 2 times [...] Daily Magnesium 400 MG capsule Pt taking OTCApp Annie) Melatonin 12 MG tablet 1 tablet, Nightly Multiple Vitamins-Minerals (BARIATRIC MULTIVITAMINS/IRON PO) Pt taking OTC (Appfolio) nystatin (Mycostatin) 246536 UNIT/GM powder 1 application , 2 times [...] pain 03/25/2023 Lower extremity edema Mood disorder ([facility]) mixed mood disorder OSMANY (obstructive sleep apnea) Osteoporosis ([facility]) Overactive bladder Pre-diabetes Primary hypertension ([facility]) 03/25/2023 PTSD (post-traumatic stress disorder) ([facility]) Restless leg Right knee pain Right sided weakness S/P bariatric surgery Shingles Slurred speech Stroke ([facility]) 2018 Tenosynovitis, de Quervain Thoracic back pain, [...] that manages your OSMANY: Daniela Hemiparesis, right (CMS/HCC) Stable with this from prior stroke GERD [...] (Aldactone) 50 MG tablet Primary hypertension (CMS/HCC) - Primary Please check blood pressure daily and record DASH diet Limit caffeine Take medication as directed Contact office if chest pain, pressure, dizziness, shortness of breath, swelling legs Recommend slow position changes Current meds: amlodipine, losartan Chronic kidney disease, stage 3a (HCC) ([facility]) Monitor labs at minimum every year Body mass index (BMI) 45.0-49.9, adult ([facility]) Other Visit Diagnoses Essential (primary) hypertension ([facility]) Relevant Medications amLODIPine (Norvasc) 10 MG tablet [...] Morbid (severe) obesity due to excess calories ([facility]) Discussed with patient their BMI (actual, verses recommended). We have also discussed lifestyle modifications: attempts to perform physical activity as chronic conditions allow, also to monitor dietary intake: increasing protein/fruits/veggies and lowering carb intake (unless contraindicated). Limit sodas, juices, and sugary drinks. Has had bariatric surgeries in the past Associated Problem(s): Chronic kidney disease, stage 3a (HCC) ([facility]) Monitor labs at minimum every year Associated [...] that supplies your machine and tubing/filters etc: [facility] Doctor that manages your OSMANY: Daniela Associated Problem(s): Hemiparesis, right (CMS/HCC) Stable with this from prior stroke documented in this encounter [facility] 05-12-2024 Instructions Adelaida Carrion NP - 05/12/2024 10:00 AM EST No changes in meds documented in this encounter [facility] 04-12-2024 Telephone encounter Note 03/10/2024 Continue Gabapentin 300 mg BID for RLS. Continue clonazepam 0.5mg PO BID for RLS. This was decreased during recent hospitalization Continue Vimpat 50mg PO BID for seizure prevention [facility] 04-12-2024 Miscellaneous Notes 03/10/2024 Continue Gabapentin 300 mg BID for RLS. Continue clonazepam 0.5mg PO BID for RLS. This was decreased during recent hospitalization Continue Vimpat 50mg PO BID for seizure prevention documented in this encounter [facility] 04-07-2024 History of Present illness [...] performance and score on it. Admitted to [facility] from the [facility] on 08/24/2023 with acute respiratory failure and confusion thought to be secondary to metabolic encephalopathy. LTME in August 2023 negative. Recently evaluated at [facility] on 03/02/2024 for severe encephalopathy. Brain MRI [...] any history of alcohol/substance abuse. Reformed smoker. [place] language [place]. Reported relocating from [place] to [place] in 2011. Completed a bachelor's degree. 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 Currently on disability. Resides with of 26 years along with her son, grandson, and 2 dogs. Has 2 children from a prior relationship. MEDICAL HISTORY/MEDICATION: MEDICATIONS: Current Outpatient Medications Medication Instructions amLODIPine (NORVASC) 10 mg, Oral, Daily biotin 5 MG tablet Pt taking OTC (Appfolio) Calcium Citrate-Vitamin D (CITRACAL + D PO) Pt taking OTC Pandabus) carvedilol (COREG) 12.5 mg, Oral, 2 times [...] Daily Magnesium 400 MG capsule Pt taking OTCApp Annie) Melatonin 12 MG tablet 1 tablet, Oral, Nightly Multiple Vitamins-Minerals (BARIATRIC MULTIVITAMINS/IRON PO) Pt taking OTC (Appfolio) nystatin (Mycostatin) 597580 UNIT/GM powder 1 application , 2 times [...] design >16th %ile. Motor/Speed of Processing: Right-handed. Rotary Engraver strength 16th %ile with right-hand, 38th %ile [...] Learning of a word list 79th %ile (4-32-22-12-12), delayed recall 93rd %ile. Recognition discriminability 93rd [...] Please contact me with any questions at [phone]. documented in this encounter [facility] 03-16-2024 History of Present illness Narrative Associated Problem(s): Right bundle branch block (RBBB) determined by electrocardiography At this point I will look at her past EKG's, She has had ECHO in past No symptoms, at this time I do not think that further testing is needed Pt is having a memory test done on apr 07 [place] Pt is anxious and afraid-pt father had dementia Spironolactone pt is asking for 50mg instead of 25mg Images from the original note were not included. Michelle Be is a 63 y.o. female presents with chief complaint of Anxiety HPI: Here for hospital follow up: AMS She was evaluated at [facility], was seen by Neurology reviewed notes from [...] biotin 5 MG tablet Pt taking OTC (Appfolio) Calcium Citrate-Vitamin D (CITRACAL + D PO) Pt taking OTC (Gruvi) carvedilol (COREG) 12.5 mg, Oral, 2 times [...] Daily Magnesium 400 MG capsule Pt taking OTC(Excelimmune) Melatonin 12 MG tablet 1 tablet, Oral, Nightly Multiple Vitamins-Minerals (BARIATRIC MULTIVITAMINS/IRON PO) Pt taking OTC (Appfolio) nystatin (Mycostatin) 578942 UNIT/GM powder 1 application , 2 times [...] pain 03/25/2023 Lower extremity edema Mood disorder ([facility]/HCC) mixed mood disorder OSMANY (obstructive sleep apnea) Osteoporosis (CMS/HCC) Overactive bladder Pre-diabetes Primary hypertension ([facility]/HCC) 03/25/2023 PTSD (post-traumatic stress disorder) ([facility]) Restless leg Right knee pain Right sided weakness S/P bariatric surgery Shingles Slurred speech Stroke ([facility]) 2018 Tenosynovitis, de Quervain Thoracic back pain, [...] to have evaluation documented in this encounter [facility] 03-16-2024 Instructions Adelaida Carrion NP - 03/16/2024 10:00 AM EST Spironolactone: I discontinued the 25mg script for this, sent a new script to , for a 50mg pill, you will take 1 pill daily Memory testing in Apr 2024 Follow up with me in early May, sooner if needed documented in this encounter [facility] 03-16-2024 Telephone encounter Note Katerina, sent to [facility]. [facility] 03-16-2024 Miscellaneous Notes Katerina, sent to [employer]. Patient calls and states that hospital lowered her requip to 2 mg at bed time. Okay to send as new dosage? documented in this encounter [facility] 03-15-2024 Telephone encounter Note Patient calls and states that hospital lowered her requip to 2 mg at bed time. Okay to send as new dosage? [facility] 03-14-2024 History of Present illness Narrative Images from the original note were not included. David Foster, PhD NEUROBEHAVIORAL STATUS EXAMINATION Michelledusty Be is a 63 y.o. female referred [...] homebody. 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 Diagnosed with OSMANY and RLS, wears CPAP nightly. Pain complaints include fibromyalgia and degenerative disc disease. Also has prior history of migraines which have resolved over the past 17 years. Neurological history includes small left thalamic stroke in 2016. MoCA . Patient accurately recalled this screening measure as well as her overall performance and score on it. Admitted to [facility] from the [facility] on 08/24/2023 with acute respiratory failure and confusion thought to be secondary to metabolic encephalopathy. Previous LTME in August 2023 negative. Recently evaluated at [facility] on 03/02/2024 for severe encephalopathy. Brain MRI [...] any history of alcohol/substance abuse. Reformed smoker. [place] language Andorran. Reported relocating from [place] to [place] in 2011. Completed a bachelors [...] Anxiety 05/18/2023 Bipolar disorder with severe depression ([facility]) 05/18/2023 Brain lesion Brain vascular malformation Chronic pain disorder Closed fracture of patella 02/04/2018 Colon polyps Constipation Degenerative cervical disc Degenerative lumbar disc Depression ([facility]) 05/18/2023 Diastolic dysfunction Dizziness 05/18/2023 Dysphagia Fibromyalgia Fibromyalgia Gastrocnemius equinus GERD (gastroesophageal reflux disease) Heart murmur Hematoma of right breast Hemiparesis ([facility]) Hemiparesis, right ([facility]) Hemorrhoid int/external hemorrhoids Hiatal hernia Iron deficiency Left foot pain 03/25/2023 Lower extremity edema Mood disorder ([facility]) mixed mood disorder OSMANY (obstructive sleep apnea) Osteoporosis ([facility]) Overactive bladder Pre-diabetes Primary hypertension ([facility]) 03/25/2023 PTSD (post-traumatic stress disorder) ([facility]) Restless leg Right knee pain Right sided weakness S/P bariatric surgery Shingles Slurred speech Stroke ([facility]) 2018 Tenosynovitis, de Quervain Thoracic back pain, unspecified back pain laterality, unspecified chronicity Tobacco dependence Vertigo, benign paroxysmal Yeast infection of the skin 05/18/2023 MEDICATIONS: Current Outpatient Medications Medication Instructions amLODIPine (NORVASC) 10 mg, Oral, Daily biotin 5 MG tablet Pt taking OTC (Appfolio) Calcium Citrate-Vitamin D (CITRACAL + D PO) Pt taking OTC (Gruvi) carvedilol (COREG) 12.5 mg, Oral, 2 times [...] Daily Magnesium 400 MG capsule Pt taking OTC([facility]) Melatonin 12 MG tablet 1 tablet, Oral, Nightly Multiple Vitamins-Minerals (BARIATRIC MULTIVITAMINS/IRON PO) Pt taking OTC (amazon) nystatin (Mycostatin) 352109 UNIT/GM powder 1 application , Topical, 2 [...] Please contact me with any questions at [phone]. documented in this encounter [facility] 02-16-2024 History of Present illness [...] biotin 5 MG tablet Pt taking OTC (Appfolio) Calcium Citrate-Vitamin D (CITRACAL + D PO) Pt taking OTC (Gruvi) carvedilol (COREG) 12.5 mg, Oral, 2 times [...] Daily Magnesium 400 MG capsule Pt taking [employer]) Melatonin 12 MG tablet 1 tablet, Oral, Nightly Multiple Vitamins-Minerals (BARIATRIC MULTIVITAMINS/IRON PO) Pt taking OTC (Appfolio) nystatin (Mycostatin) 151505 UNIT/GM powder 1 application , Topical, 2 [...] Anxiety 05/18/2023 Bipolar disorder with severe depression ([facility]/HCC) 05/18/2023 Brain lesion Brain vascular malformation Chronic pain disorder Closed fracture of patella 02/04/2018 Colon polyps Constipation Degenerative cervical disc Degenerative lumbar disc Depression ([facility]/HCC) 05/18/2023 Diastolic dysfunction Dizziness 05/18/2023 Dysphagia Fibromyalgia Fibromyalgia Gastrocnemius equinus GERD (gastroesophageal reflux disease) Heart murmur Hematoma of right breast Hemiparesis ([facility]/HCC) Hemiparesis, right (CMS/HCC) Hemorrhoid int/external hemorrhoids Hiatal hernia Iron deficiency Left foot pain 03/25/2023 Lower extremity edema Mood disorder (CMS/HCC) mixed mood disorder OSMANY (obstructive sleep apnea) Osteoporosis (CMS/HCC) Overactive bladder Pre-diabetes Primary hypertension ([facility]) 03/25/2023 PTSD (post-traumatic stress disorder) ([facility]) Restless leg Right knee pain Right sided weakness S/P bariatric surgery Shingles Slurred speech Stroke ([facility]) 2018 Tenosynovitis, de Quervain Thoracic back pain, [...] nursing note reviewed. Exam conducted with a elementary classroom teacher present. Constitutional: General: She is not in [...] chronic conditions allow documented in this encounter [facility] 01-28-2024 History of Present illness [...] for UTI and dehydration. See [facility] for HPI Was sent home on Bactrim. Feels completely fine now, no fever, chills, malodorous urine, no constipation diarrhea or abd pain SUBJECTIVE: MEDICATIONS: Current Outpatient Medications Medication Instructions amLODIPine (NORVASC) 10 mg, Oral, Daily biotin 5 MG tablet Pt taking OTC (Appfolio) Calcium Citrate-Vitamin D (CITRACAL + D PO) Pt taking OTC (Gruvi) carvedilol (COREG) 12.5 mg, Oral, 2 times [...] Daily Magnesium 400 MG capsule Pt taking OTC(Excelimmune) Melatonin 12 MG tablet 1 tablet, Oral, Nightly Multiple Vitamins-Minerals (BARIATRIC MULTIVITAMINS/IRON PO) Pt taking OTC (Appfolio) nystatin (Mycostatin) 040003 UNIT/GM powder 1 application , Topical, 2 [...] Anxiety 05/18/2023 Bipolar disorder with severe depression ([facility]) 05/18/2023 Brain lesion Brain vascular malformation Chronic pain disorder Closed fracture of patella 02/04/2018 Colon polyps Constipation Degenerative cervical disc Degenerative lumbar disc Depression ([facility]) 05/18/2023 Diastolic dysfunction Dizziness 05/18/2023 Dysphagia Fibromyalgia Fibromyalgia Gastrocnemius equinus GERD (gastroesophageal reflux disease) Heart murmur Hematoma of right breast Hemiparesis ([facility]) Hemiparesis, right ([facility]) Hemorrhoid int/external hemorrhoids Hiatal hernia Iron deficiency Left foot pain 03/25/2023 Lower extremity edema Mood disorder ([facility]) mixed mood disorder OSMANY (obstructive sleep apnea) Osteoporosis (CMS/[facility]) Overactive bladder Pre-diabetes Primary hypertension ([facility]) 03/25/2023 PTSD (post-traumatic stress disorder) ([facility]) Restless leg Right knee pain Right sided weakness S/P bariatric surgery Shingles Slurred speech Stroke ([facility]) 2018 Tenosynovitis, de Quervain Thoracic back pain, [...] of the risks of continued smoking: stroke, SC, all forms of cancer, lung disease, and [...] Relevant Orders Flu vaccine, MDCK, quadrivalent, PF (AQF499) (Flucelvax single dose syringe) Associated Problem(s): Tobacco dependence The patient has been advised of the risks of continued smoking: stroke, SC, all forms of cancer, lung disease, and . Options for quitting smoking include: cold turkey, hypnosis, acupuncture, nicotine replacement meds (gum, lozenges, and patches), Buproprion, and Varenicline. At this time pt is encouraged to evaluate their goals for wanting to quit smoking, and reach out to provider when ready to start this process documented in this encounter [facility] 01-04-2024 History of Present illness [...] compliance problems. There is no history of CAD/SC, heart failure or PVD. Identifiable causes of hypertension include sleep apnea. SUBJECTIVE: MEDICATIONS: Current Outpatient Medications Medication Instructions amLODIPine (NORVASC) 10 mg, Oral, Daily biotin 5 MG tablet Pt taking OTC (Appfolio) Calcium Citrate-Vitamin D (CITRACAL + D PO) Pt taking OTC (Gruvi) carvedilol (COREG) 12.5 mg, Oral, 2 times [...] Daily Magnesium 400 MG capsule Pt taking OTC(Excelimmune) Melatonin 12 MG tablet 1 tablet, Oral, Nightly Multiple Vitamins-Minerals (BARIATRIC MULTIVITAMINS/IRON PO) Pt taking OTC (Appfolio) nystatin (Mycostatin) 524233 UNIT/GM powder 1 application , Topical, 2 [...] Anxiety 05/18/2023 Bipolar disorder with severe depression ([facility]) 05/18/2023 Brain lesion Brain vascular malformation Chronic pain disorder Closed fracture of patella 02/04/2018 Colon polyps Constipation Degenerative cervical disc Degenerative lumbar disc Depression ([facility]/HCC) 05/18/2023 Diastolic dysfunction Dizziness 05/18/2023 Dysphagia Fibromyalgia Fibromyalgia Gastrocnemius equinus GERD (gastroesophageal reflux disease) Heart murmur Hematoma of right breast Hemiparesis ([facility]) Hemiparesis, right ([facility]) Hemorrhoid int/external hemorrhoids Hiatal hernia Iron deficiency Left foot pain 03/25/2023 Lower extremity edema Mood disorder ([facility]) mixed mood disorder OSMANY (obstructive sleep apnea) Osteoporosis ([facility]) Overactive bladder Pre-diabetes Primary hypertension ([facility]) 03/25/2023 PTSD (post-traumatic stress disorder) ([facility]) Restless leg Right knee pain Right sided weakness S/P bariatric surgery Shingles Slurred speech Stroke ([facility]) 2018 Tenosynovitis, de Quervain Thoracic back pain, [...] MCG/ACT nasal spray documented in this encounter [facility] 12-09-2023 History of Present illness [...] machine. She is normally seen at the [facility] and was last seen on [...] Anxiety 05/18/2023 Bipolar disorder with severe depression ([facility]) 05/18/2023 Brain lesion Brain vascular malformation Chronic pain disorder Closed fracture of patella 02/04/2018 Colon polyps Constipation Degenerative cervical disc Degenerative lumbar disc Depression (CMS/HCC) 05/18/2023 Diastolic dysfunction Dizziness 05/18/2023 Dysphagia Fibromyalgia Fibromyalgia Gastrocnemius equinus GERD (gastroesophageal reflux disease) Heart murmur Hematoma of right breast Hemiparesis (CMS/[facility]) Hemiparesis, right ([facility]) Hemorrhoid int/external hemorrhoids Hiatal hernia Iron deficiency Left foot pain 03/25/2023 Lower extremity edema Mood disorder (CMS/[facility]) mixed mood disorder OSMANY (obstructive sleep apnea) Osteoporosis (CMS/[facility]) Overactive bladder Pre-diabetes Primary hypertension ([facility]) 03/25/2023 PTSD (post-traumatic stress disorder) ([facility]) Restless leg Right knee pain Right sided weakness S/P bariatric surgery Shingles Slurred speech Stroke ([facility]) 2018 Tenosynovitis, de Quervain Thoracic back pain, [...] melatonin. She was last seen in the [facility] on June [facility], 2023. Since [...] was counseled on the risks of stroke, SC, and sudden with OSMANY, along with the [...] clinic: one year documented in this encounter [facility] 12-08-2023 History of Present illness [...] Anxiety 05/18/2023 Bipolar disorder with severe depression ([facility]/HCC) 05/18/2023 Brain lesion Brain vascular malformation [...] hypertension (CMS/HCC) 03/25/2023 PTSD (post-traumatic stress disorder) (CMS/HCC) Restless leg Right knee pain Right sided [...] Types: Cigarettes Start date: 1976 Quit date: 2016 Years since quittin.6 Smokeless tobacco: Never Substance Use Topics Alcohol use: Never Comment: caffeine intake: 1-2 cups per day. Medication Documentation Review Audit Reviewed by Festus Baron MA ([facility] Manager) on 12/08/23 at 1525 Medication Order Taking? Sig Documenting Provider Last Dose Status amLODIPine (Norvasc) 10 MG tablet [id number] Take 1 tablet (10 mg) by mouth Daily Adelaida Carrion NP Active biotin 5 MG tablet [id number] Pt taking OTC (Appfolio) Historical Provider, Active Calcium Citrate-Vitamin D (CITRACAL + D PO) [id number] Pt taking OTC (Gruvi) Historical Provider, Active Cariprazine HCl (Vraylar) 4.5 MG capsule [id number] Take 4.5 mg by mouth Daily Active carvedilol (Coreg) 12.5 MG tablet [id number] Take 1 tablet (12.5 mg) by mouth in the morning and 1 tablet (12.5 mg) in the evening. Take with meals. Adelaida Carrion NP Active cetirizine (ZyrTEC) 10 MG tablet [id number] Take 1 tablet (10 mg) by mouth Daily Adelaida Carrion NP Active clonazePAM (KlonoPIN) 1 MG tablet [id number] Take 1 tablet (1 mg) by mouth 2 (two) times a day as needed for anxiety Do not start before October 16, 2023. Sonam Brown NP 11/15/23 6108 DULoxetine (Cymbalta) [address] capsule [id number] Take 60 mg by mouth in the morning and 60 mg before bedtime. Do not crush or chew.. Active fluconazole (Diflucan) 150 MG tablet [id number] 1 pill every 3 days for a total of 3 doses Adelaida Carrion NP Active fluticasone (Flonase) 50 MCG/ACT nasal spray [id number] Administer 2 sprays into each nostril Daily Adelaida Carrion NP 11/04/23 3209 gabapentin (Neurontin) 300 MG capsule [id number] Take 1 capsule (300 mg) by mouth in the morning and 1 capsule (300 mg) before bedtime. Sonam Brown NP Active losartan (Cozaar) 100 MG tablet [id number] Take 1 tablet (100 mg) by mouth Daily Adelaida Carrion NP Active Magnesium 400 MG capsule [id number] Pt taking OTC([facility]) Historical Provider, Active Melatonin 12 MG tablet [id number] Take 1 tablet by mouth at bedtime Active Multiple Vitamins-Minerals (BARIATRIC MULTIVITAMINS/IRON PO) [id number] Pt taking OTC ([facility]) Historical Provider, Active nystatin (Mycostatin) 570032 UNIT/GM powder [id number] Apply 1 application topically in the morning and 1 application before bedtime. Adelaida Carrion NP Active omeprazole (PriLOSEC) [address] capsule [id number] Take 1 capsule (20 mg) by mouth in the morning. Take before meals. Adelaida Carrion NP Active rOPINIRole (Requip) 4 MG tablet [id number] Take 1 tablet (4 mg) by mouth at bedtime Sonam Brown NP Active spironolactone (Aldactone) 25 MG tablet [id number] Take 2 tablets (50 mg) by mouth Daily Adelaida Carrion NP Active tiZANidine (Zanaflex) 2 MG tablet [id number] Take 2 mg by mouth every 8 (eight) hours Adelaida Carrion NP Active traZODone (Desyrel) 150 MG tablet [id number] Take 150 mg by mouth at bedtime Active HPI AMS -Patient was admitted to [facility] from the [facility] on 08/24/2023 with acute respiratory failure and confusion thought to be secondary to metabolic encephalopathy. Patient denies any new hospital stays. -She was seen by Neurology who thought she had a toxic encephalopathy secondary to medication overuse. -She was monitored on LTME which did not show any evidence of seizures. -After she was discharged she had a [facility] stay [facility] on 09[facility]/2023 and she was discharged [...] ankle and great toe bilaterally. Coordination Right: Uagbmo-ed-jusy normal. Rapid alternating movement normal.Left: Drjngo-rx-yopb normal. Rapid alternating movement normal. Gait Casual gait is normal including stance, stride, and arm swing. Motor Examination RUE Strength deltoid, biceps, triceps, wrist extensors, wrist extensors, wrist flexor, security systems specialist strength 5/5. LUE Strength deltoid, biceps, triceps, wrist extensors, wrist extensors, wrist flexor, security systems specialist strength 5/5. RLE Strength illopsoas, quadriceps, tibialis [...] not all inclusive. Patient was admitted to [facility] from the [facility] on 08/24/2023 with acute respiratory failure [...] of the brain in July 2019 showed zxho-eg-aqkvyodi white matter changes with the largest area [...] make further recommendations documented in this encounter [facility] 05-18-2023 History of Present illness [...] (BARIATRIC MULTIVITAMINS/IRON PO) Bariatric Multivitamins/Iron nystatin (Mycostatin) 582379 UNIT/GM powder 1 application , Topical, 2 [...] Degenerative cervical disc Degenerative lumbar disc Depression ([facility]/HCC) 05/18/2023 Diastolic dysfunction Dizziness 05/18/2023 Dysphagia Fibromyalgia Gastrocnemius equinus GERD (gastroesophageal reflux disease) Heart murmur Hematoma of right breast Hemiparesis, right (CMS/HCC) Hemorrhoid int/external hemorrhoids Hiatal hernia Iron deficiency Left foot pain 03/25/2023 Lower extremity edema Mood disorder ([facility]) mixed mood disorder OSMANY (obstructive sleep apnea) Osteoporosis ([facility]) Overactive bladder Pre-diabetes Primary hypertension ([facility]) 03/25/2023 PTSD (post-traumatic stress disorder) ([facility]) Restless leg Right knee pain Right sided weakness S/P bariatric surgery Shingles Slurred speech Stroke ([facility]) 2018 Tenosynovitis, de Quervain Thoracic back pain, [...] yearly and prn documented in this encounter [facility] 03-23-2023 Procedure note [facility] 12-19-2022 Evaluation note Encounter Date Diagnosis Assessment Notes Dec, Skin candidiasis (ICD-10 - B37.2) Drink plenty fluids, get plenty of rest. Continue home medications as prescribed. Take the Diflucan as prescribed until gone. Follow-up with your family physician if no improvement in 2 to 3 days [employer] Other 08-17-2023 Discharge summary Author Eduardo bautista [facility] November 20, 2022 6:38am Note Date/Time November 20, 2022 6: 38am [facility] [address] [place] [address] Discharge Summary Signed Patient: Michelle Be MR#: [id number] : 1960 Acct:[id number] Age/Sex: 61 / F Adm Date: 3 Loc: Room: [address] [place] [address]: Gaudencio Monk MD Copies to: MD Adelaida Álvarez, COFFEE FARMER-C~ Providers Date of Discharge: 11/20/22 Discharging Provider: [...] time.? She reports moving to [place] from [place] in 2011 and was then diagnosed with bipolar disorder at [facility] in [place], where she still follows with a therapist.? Shereports that she has been with 7 therapists in the last 9 years and is currentlycompleting EMDR with her current therapist. Past hospitalizations: Her most recent hospitalization was 5 years ago [facility] in [place] for the same feeling she is experiencing [...] her , son and his girlfriend, and hergrandson.? Reports a situation in which they are attempting to seek custody of the grandson from the mother of the child.? She reports not feeling safe at homewith herself but feels safe when her family is home. Employment: Patient has not worked since 2010 due to her fibromyalgia.? [facility]. 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 (insert date/time here) Intake: (Insert date/time here) Please bring a copy of your photo ID, insurance card, and proof of household income.? Psychiatry: (Insert date/time here) Group: (Insert date/time here ) ) Adelaida Carrion [Primary Care Provider] - (Please contact for any medical needs) Documented By: Eduardo Monk MD 3 [id number] Signed By: <Electronically signed by Eduardo Mokn MD> 11/20/22 0638 [facility] Work Phone: 1(530) 703-364508-16-2023 Progress note Author Eduardo bautista [facility] November 19, 2022 6:25am Note Date/Time November 19, 2022 6: 25am [facility] [address] [place] [address] Psychiatry Progress Note Signed Patient: Michelle Be MR#: [id number] : 1960 Acct:[id number] Age/Sex: 61 / F Adm Date: 3 Loc: Room: [address] [place] [address] Type : ADM IN Attending Dr: Gaudencio [...] <Electronically signed by Eduardo Monk MD> 11/19/2225 [facility] Work Phone: 1(978) 850-487808-15-2023 Progress note Author Eduardo bautista [facility] November 18, 2022 11:01am Note Date/Time November 18, 2022 10 :11am [facility] [address] [place] [address] Psychiatry Progress Note Signed Patient: Michelle Be MR#: [id number] : 1960 Acct:[id number] Age/Sex: 61 / F Adm Date: 3 Loc: 1S Room: 4R5757-4 Type : ADM IN Attending Dr: Gaudencio [...] by requesting a schedule 2 referring to [place] for pain management specifically every 4-6 hours [...] signed by MD DA Rangel> 11/18/22 1011 [facility] Work Phone: 1(725) 133-665008-14-2023 History and physical note Author Eduardo bautista [facility] November 17, 2022 12:48pm Note Date/Time November 17, 2022 12 :48pm [facility] [address] [place] [address] Psychiatry H&P Signed Patient: Michelle Be MR#: [id number] : 1960 Acct:[id number] Age/Sex: 61 / F Adm Date: 3 Loc: Room: [address] [place] [address] Type: ADM IN Attending Dr: Gaudencio Monk MD Copies to: MD Adelaida Álvarezhholz, COFFEE FARMER-C~ Date of Service: 11/17/2022 HPI History of [...] time. She reports moving to [place] from [place] in 2011 and was then diagnosed with bipolar disorder at [facility] in [place], where she still follows with a therapist. Shereports that she has been with 7 therapists in the last 9 years and is currentlycompleting EMDR with her current therapist. Past hospitalizations: Her most recent hospitalization was 5 years ago [facility] in [place] for the same feeling she is experiencing [...] equal bilaterally. CN XII: Tongue protrusion midline [facility] Medical History (Updated 11/17/22 @ 10:42 by Travon Melendez) Anxiety Bipolar 2 disorder Degenerative disc [...] <Electronically signed by Eduardo Monk MD> 11/17/22 [address] [facility] Work Phone: 1(490) 326-706603-23-2023 NoteCONSULTATION CONSULTATION DATE: 06/26/2022 To: Nurse Sheyla [...] L5-S1 facet joint injection under fluoroscopic guidance.[id number] NotePROCEDURE: XR SHOULDER RT 2V or > [...] Electronically authenticated by: KINGSLEY CLEMENTS Date: 2022-05-09 09:21[facility]01-23-2023 NotePROCEDURE: XR WRIST LT MIN 3 V [...] authenticated by: KINGSLEY CLEMENTS Date: 2022-04-28 13:31[facility] [id number] NoteCONSULTATION CONSULTATION DATE: 04/03/2022 HISTORY OF PRESENT [...] her in three months, unless otherwise indicated.[facility] [id number] NoteCONSULTATION CONSULTATION DATE: 01/02/2022 This is a [...] prescription was sent by Dr. Macedo to [facility] in [place] for the compounded cream. She needs a [...] in three months' time unless otherwise indicated.[facility] [id number] NotePROCEDURE: XR ANKLE RT MIN 3 VIEWS, [...] tendon degenerative enthesophyte. Electronically authenticated by: KINGSLEY CLEMENST Date: 2022-01-01 13:11[facility]09-28-2022 NotePROCEDURE: XR ANKLE RT MIN 3 VIEWS, [...] Electronically authenticated by: KINGSLEY CLEMENTS Date: 2022-01-01 13:11[facility]08-18-2022 NotePROCEDURE: XR FOOT RT MIN 3 VIEWS HISTORY: Pain in right foot , chronic COMPARISON: XR foot right 2020 FINDINGS: BONES:No fracture, dislocation, bone lesion. Small calcaneal degenerative enthesophytes. SOFT TISSUES:No visible soft tissue swelling. EFFUSION:None visible. OTHER: Negative. IMPRESSION: 1. No acute bone abnormality or significant degenerative joint disease. Electronically authenticated by: KINGSLEY CLEMENTS Date: 2021-11-21 16:13[facility]06-30-2022 NoteCONSULTATION CONSULTATION DATE: 10/03/2021 This is a [...] patient agrees with the plan of care. [facility] Signed and Approved by: ZELDA MCDANIEL . 10/10/2021 10:22:00[facility] Diagnosis Onset Date Resolution Status Allergies acute Bipolar 2 disorder acute Hypertension acute Morbid obesity with BMI of 45.0-49.9, adult acute OSMANY (obstructive sleep apnea) acute Restless legs syndrome acute [facility] Work Phone: Evaluation noteNo InformationNort Scripped Other Evaluation noteNo assessment information available [facility] Work Phone: Evaluation note* Diagnosis Encounter for annual wellness visit (AWV) in Medicare patient- Primary OSMANY (obstructive sleep apnea) Obstructive sleep apnea (adult) (pediatric) Chronic pain disorder Chronic pain syndrome Gastroesophageal reflux disease, unspecified whether esophagitis present Overactive bladder Hypertonicity of bladder Lower extremity edema Edema Pre-diabetes Other abnormal glucose Morbid obesity ([facility]) Morbid obesity Yeast infection of the skin Candidiasis of skin and nails Tobacco dependence Tobacco use disorder Mood disorder (CMS/HCC) Unspecified episodic mood disorder Primary hypertension ([facility]) Unspecified essential hypertension Left hip pain Pain in joint, pelvic region and thigh Open wound of anterior abdominal wall, initial encounter documented in this encounter [facility] HealthcareEvaluation note* Diagnosis Acute cystitis with hematuria- Primary documented in this encounter [facility] Healthcare[facility]* Diagnosis Left foot pain- Primary Pain in soft tissues of limb Primary hypertension ([facility]) Unspecified essential hypertension Class 3 severe obesity due to excess calories without serious comorbidity with body mass index (BMI) of 45.0 to 49.9 in adult ([facility]) Encounter for annual wellness visit (AWV) in Medicare patient- Primary OSMANY (obstructive sleep apnea) Obstructive sleep apnea (adult) (pediatric) Chronic pain disorder Chronic pain syndrome Gastroesophageal reflux disease, unspecified whether esophagitis present Overactive bladder Hypertonicity of bladder Lower extremity edema Edema Pre-diabetes Other abnormal glucose Morbid obesity ([facility]) Morbid obesity Yeast infection of the skin Candidiasis of skin and nails Tobacco dependence Tobacco use disorder Mood disorder ([facility]) Unspecified episodic mood disorder Primary hypertension ([facility]) Unspecified essential hypertension Left hip pain Pain in joint, pelvic region and thigh Open wound of anterior abdominal wall, initial encounter Primary hypertension ([facility])- Primary Unspecified essential hypertension Yeast infection of the skin Candidiasis of skin and nails Morbid obesity ([facility]) Morbid obesity Primary hypertension ([facility])- Primary Unspecified essential hypertension Encounter for screening mammogram for malignant neoplasm of breast Gastroesophageal reflux disease, unspecified whether esophagitis present Acute gout of right foot, unspecified cause Osteoporosis, unspecified osteoporosis type, unspecified pathological fracture presence ([facility]) Morbid obesity ([facility]) Morbid obesity Pre-diabetes Other abnormal glucose Anemia, unspecified type Vitamin deficiency Unspecified vitamin deficiency Post-viral cough syndrome Primary hypertension ([facility])- Primary Unspecified essential hypertension Allergic rhinitis, unspecified Acute cough Morbid obesity ([facility]) Morbid obesity Former cigarette smoker Personal history of tobacco use, presenting hazards to health Toxic metabolic encephalopathy- Primary Hemiparesis, right ([facility]) Unspecified hemiplegia affecting unspecified side Acute respiratory failure with hypoxia ([facility]) Heart murmur Undiagnosed cardiac murmurs Primary hypertension ([facility]) Unspecified essential hypertension Morbid obesity ([facility]) Morbid obesity Bipolar disorder with severe depression ([facility]) Slurred speech Other speech disturbance Bilateral lower extremity edema- Primary Primary hypertension ([facility]) Unspecified essential hypertension Lower extremity edema Edema Essential (primary) hypertension ([facility]) Unspecified essential hypertension Gastro-esophageal reflux disease without esophagitis Allergic rhinitis, unspecified Bilateral lower extremity edema- Primary Morbid (severe) obesity due to excess calories ([facility]) Body mass index (BMI) 45.0-49.9, adult ([facility]) Pre-diabetes Other abnormal glucose Bilateral lower extremity edema- Primary Essential (primary) hypertension ([facility]) Unspecified essential hypertension Allergic rhinitis, unspecified OSMANY (obstructive sleep apnea) Obstructive sleep apnea (adult) (pediatric) Primary hypertension ([facility]) Unspecified essential hypertension Morbid obesity ([facility]) Morbid obesity Acute cystitis without hematuria- Primary Tobacco dependence Tobacco use disorder Needs flu shot Need for prophylactic vaccination and inoculation against influenza Morbid obesity ([facility]) Morbid obesity documented in this encounter [facility] HealthcareEvaluation note* Diagnosis Left foot pain- Primary Pain in soft tissues of limb Primary hypertension ([facility]) Unspecified essential hypertension Class 3 severe obesity due to excess calories without serious comorbidity with body mass index (BMI) of 45.0 to 49.9 in adult ([facility]) Encounter for annual wellness visit (AWV) in Medicare patient- Primary OSMANY (obstructive sleep apnea) Obstructive sleep apnea (adult) (pediatric) Chronic pain disorder Chronic pain syndrome Gastroesophageal reflux disease, unspecified whether esophagitis present Overactive bladder Hypertonicity of bladder Lower extremity edema Edema Pre-diabetes Other abnormal glucose Morbid obesity ([facility]) Morbid obesity Yeast infection of the skin Candidiasis of skin and nails Tobacco dependence Tobacco use disorder Mood disorder ([facility]) Unspecified episodic mood disorder Primary hypertension ([facility]) Unspecified essential hypertension Left hip pain Pain in joint, pelvic region and thigh Open wound of anterior abdominal wall, initial encounter Primary hypertension ([facility])- Primary Unspecified essential hypertension Yeast infection of the skin Candidiasis of skin and nails Morbid obesity ([facility]) Morbid obesity Primary hypertension ([facility])- Primary Unspecified essential hypertension Encounter for screening mammogram for malignant neoplasm of breast Gastroesophageal reflux disease, unspecified whether esophagitis present Acute gout of right foot, unspecified cause Osteoporosis, unspecified osteoporosis type, unspecified pathological fracture presence ([facility]) Morbid obesity ([facility]) Morbid obesity Pre-diabetes Other abnormal glucose Anemia, unspecified type Vitamin deficiency Unspecified vitamin deficiency Post-viral cough syndrome Primary hypertension ([facility])- Primary Unspecified essential hypertension Allergic rhinitis, unspecified Acute cough Morbid obesity ([facility]) Morbid obesity Former cigarette smoker Personal history of tobacco use, presenting hazards to health Toxic metabolic encephalopathy- Primary Hemiparesis, right ([facility]) Unspecified hemiplegia affecting unspecified side Acute respiratory failure with hypoxia ([facility]) Heart murmur Undiagnosed cardiac murmurs Primary hypertension ([facility]) Unspecified essential hypertension Morbid obesity ([facility] Morbid obesity Bipolar disorder with severe depression ([facility]) Slurred speech Other speech disturbance Bilateral lower extremity edema- Primary Primary hypertension ([facility]) Unspecified essential hypertension Lower extremity edema Edema Essential (primary) hypertension ([facility]) Unspecified essential hypertension Gastro-esophageal reflux disease without esophagitis Allergic rhinitis, unspecified Bilateral lower extremity edema- Primary Morbid (severe) obesity due to excess calories ([facility]) Body mass index (BMI) 45.0-49.9, adult ([facility]) Pre-diabetes Other abnormal glucose Bilateral lower extremity edema- Primary Essential (primary) hypertension ([facility]) Unspecified essential hypertension Allergic rhinitis, unspecified OSMANY (obstructive sleep apnea) Obstructive sleep apnea (adult) (pediatric) Primary hypertension ([facility]) Unspecified essential hypertension Morbid obesity ([facility]) Morbid obesity Acute cystitis without hematuria- Primary Tobacco dependence Tobacco use disorder Needs flu shot Need for prophylactic vaccination and inoculation against influenza Morbid obesity ([facility]) Morbid obesity Restless leg Restless legs syndrome (RLS) documented in this encounter [facility]* Diagnosis Left foot pain- Primary Pain in soft tissues of limb Primary hypertension ([facility]) Unspecified essential hypertension Class 3 severe obesity due to excess calories without serious comorbidity with body mass index (BMI) of 45.0 to 49.9 in adult ([facility]) Encounter for annual wellness visit (AWV) in Medicare patient- Primary OSMANY (obstructive sleep apnea) Obstructive sleep apnea (adult) (pediatric) Chronic pain disorder Chronic pain syndrome Gastroesophageal reflux disease, unspecified whether esophagitis present Overactive bladder Hypertonicity of bladder Lower extremity edema Edema Pre-diabetes Other abnormal glucose Morbid obesity ([facility]) Morbid obesity Yeast infection of the skin Candidiasis of skin and nails Tobacco dependence Tobacco use disorder Mood disorder ([facility]) Unspecified episodic mood disorder Primary hypertension ([facility]) Unspecified essential hypertension Left hip pain Pain in joint, pelvic region and thigh Open wound of anterior abdominal wall, initial encounter Primary hypertension ([facility]/HCC)- Primary Unspecified essential hypertension Yeast infection of the skin Candidiasis of skin and nails Morbid obesity ([facility]/HCC) Morbid obesity Primary hypertension ([facility])- Primary Unspecified essential hypertension Encounter for screening mammogram for malignant neoplasm of breast Gastroesophageal reflux disease, unspecified whether esophagitis present Acute gout of right foot, unspecified cause Osteoporosis, unspecified osteoporosis type, unspecified pathological fracture presence ([facility]) Morbid obesity ([facility]) Morbid obesity Pre-diabetes Other abnormal glucose Anemia, unspecified type Vitamin deficiency Unspecified vitamin deficiency Post-viral cough syndrome Primary hypertension ([facility])- Primary Unspecified essential hypertension Allergic rhinitis, unspecified Acute cough Morbid obesity ([facility]) Morbid obesity Former cigarette smoker Personal history of tobacco use, presenting hazards to health Toxic metabolic encephalopathy- Primary Hemiparesis, right ([facility]) Unspecified hemiplegia affecting unspecified side Acute respiratory failure with hypoxia ([facility]) Heart murmur Undiagnosed cardiac murmurs Primary hypertension ([facility]) Unspecified essential hypertension Morbid obesity ([facility]) Morbid obesity Bipolar disorder with severe depression ([facility]) Slurred speech Other speech disturbance Bilateral lower extremity edema- Primary Primary hypertension ([facility]/HCC) Unspecified essential hypertension Lower extremity edema Edema Essential (primary) hypertension ([facility]) Unspecified essential hypertension Gastro-esophageal reflux disease without esophagitis Allergic rhinitis, unspecified Bilateral lower extremity edema- Primary Morbid (severe) obesity due to excess calories ([facility]) Body mass index (BMI) 45.0-49.9, adult ([facility]) Pre-diabetes Other abnormal glucose Bilateral lower extremity edema- Primary Essential (primary) hypertension ([facility]) Unspecified essential hypertension Allergic rhinitis, unspecified OSMANY (obstructive sleep apnea) Obstructive sleep apnea (adult) (pediatric) Primary hypertension ([facility]) Unspecified essential hypertension Morbid obesity ([facility]) Morbid obesity Acute cystitis without hematuria- Primary Tobacco dependence Tobacco use disorder Needs flu shot Need for prophylactic vaccination and inoculation against influenza Morbid obesity (CMS/HCC) Morbid obesity Well woman exam with routine gynecological exam- Primary Routine gynecological examination Morbid obesity ([facility]) Morbid obesity documented in this encounter [facility]* Diagnosis Left foot pain- Primary Pain in soft tissues of limb Primary hypertension ([facility]) Unspecified essential hypertension Class 3 severe obesity due to excess calories without serious comorbidity with body mass index (BMI) of 45.0 to 49.9 in adult ([facility]) Encounter for annual wellness visit (AWV) in Medicare patient- Primary OSMANY (obstructive sleep apnea) Obstructive sleep apnea (adult) (pediatric) Chronic pain disorder Chronic pain syndrome Gastroesophageal reflux disease, unspecified whether esophagitis present Overactive bladder Hypertonicity of bladder Lower extremity edema Edema Pre-diabetes Other abnormal glucose Morbid obesity ([facility]) Morbid obesity Yeast infection of the skin Candidiasis of skin and nails Tobacco dependence Tobacco use disorder Mood disorder ([facility]) Unspecified episodic mood disorder Primary hypertension ([facility]) Unspecified essential hypertension Left hip pain Pain in joint, pelvic region and thigh Open wound of anterior abdominal wall, initial encounter Primary hypertension ([facility])- Primary Unspecified essential hypertension Yeast infection of the skin Candidiasis of skin and nails Morbid obesity ([facility]) Morbid obesity Primary hypertension ([facility])- Primary Unspecified essential hypertension Encounter for screening mammogram for malignant neoplasm of breast Gastroesophageal reflux disease, unspecified whether esophagitis present Acute gout of right foot, unspecified cause Osteoporosis, unspecified osteoporosis type, unspecified pathological fracture presence ([facility]) Morbid obesity ([facility]) Morbid obesity Pre-diabetes Other abnormal glucose Anemia, unspecified type Vitamin deficiency Unspecified vitamin deficiency Post-viral cough syndrome Primary hypertension ([facility])- Primary Unspecified essential hypertension Allergic rhinitis, unspecified Acute cough Morbid obesity ([facility]) Morbid obesity Former cigarette smoker Personal history of tobacco use, presenting hazards to health Toxic metabolic encephalopathy- Primary Hemiparesis, right ([facility]) Unspecified hemiplegia affecting unspecified side Acute respiratory failure with hypoxia ([facility]) Heart murmur Undiagnosed cardiac murmurs Primary hypertension ([facility]) Unspecified essential hypertension Morbid obesity ([facility]) Morbid obesity Bipolar disorder with severe depression ([facility]) Slurred speech Other speech disturbance Bilateral lower extremity edema- Primary Primary hypertension ([facility]) Unspecified essential hypertension Lower extremity edema Edema Essential (primary) hypertension ([facility]) Unspecified essential hypertension Gastro-esophageal reflux disease without esophagitis Allergic rhinitis, unspecified Bilateral lower extremity edema- Primary Morbid (severe) obesity due to excess calories ([facility]) Body mass index (BMI) 45.0-49.9, adult ([facility]) Pre-diabetes Other abnormal glucose Bilateral lower extremity edema- Primary Essential (primary) hypertension ([facility]) Unspecified essential hypertension Allergic rhinitis, unspecified OSMANY (obstructive sleep apnea) Obstructive sleep apnea (adult) (pediatric) Primary hypertension ([facility]) Unspecified essential hypertension Morbid obesity ([facility]) Morbid obesity Acute cystitis without hematuria- Primary Tobacco dependence Tobacco use disorder Needs flu shot Need for prophylactic vaccination and inoculation against influenza Morbid obesity ([facility]) Morbid obesity Well woman exam with routine gynecological exam- Primary Routine gynecological examination Morbid obesity ([facility]) Morbid obesity Essential (primary) hypertension ([facility]) Unspecified essential hypertension Allergic rhinitis, unspecified documented in this encounter [facility] Diagnosis Left foot pain- Primary Pain in soft tissues of limb Primary hypertension ([facility]) Unspecified essential hypertension Class 3 severe obesity due to excess calories without serious comorbidity with body mass index (BMI) of 45.0 to 49.9 in adult ([facility]) Encounter for annual wellness visit (AWV) in Medicare patient- Primary OSMANY (obstructive sleep apnea) Obstructive sleep apnea (adult) (pediatric) Chronic pain disorder Chronic pain syndrome Gastroesophageal reflux disease, unspecified whether esophagitis present Overactive bladder Hypertonicity of bladder Lower extremity edema Edema Pre-diabetes Other abnormal glucose Morbid obesity ([facility]) Morbid obesity Yeast infection of the skin Candidiasis of skin and nails Tobacco dependence Tobacco use disorder Mood disorder ([facility]) Unspecified episodic mood disorder Primary hypertension ([facility]) Unspecified essential hypertension Left hip pain Pain in joint, pelvic region and thigh Open wound of anterior abdominal wall, initial encounter Primary hypertension ([facility])- Primary Unspecified essential hypertension Yeast infection of the skin Candidiasis of skin and nails Morbid obesity ([facility]) Morbid obesity Primary hypertension ([facility])- Primary Unspecified essential hypertension Encounter for screening mammogram for malignant neoplasm of breast Gastroesophageal reflux disease, unspecified whether esophagitis present Acute gout of right foot, unspecified cause Osteoporosis, unspecified osteoporosis type, unspecified pathological fracture presence ([facility]) Morbid obesity ([facility]) Morbid obesity Pre-diabetes Other abnormal glucose Anemia, unspecified type Vitamin deficiency Unspecified vitamin deficiency Post-viral cough syndrome Primary hypertension ([facility])- Primary Unspecified essential hypertension Allergic rhinitis, unspecified Acute cough Morbid obesity ([facility]) Morbid obesity Former cigarette smoker Personal history of tobacco use, presenting hazards to health Toxic metabolic encephalopathy- Primary Hemiparesis, right ([facility]) Unspecified hemiplegia affecting unspecified side Acute respiratory failure with hypoxia ([facility] [facility] Heart murmur Undiagnosed cardiac murmurs Primary hypertension ([facility]) Unspecified essential hypertension Morbid obesity ([facility]) Morbid obesity Bipolar disorder with severe depression ([facility]) Slurred speech Other speech disturbance Bilateral lower extremity edema- Primary Primary hypertension ([facility]) Unspecified essential hypertension Lower extremity edema Edema Essential (primary) hypertension ([facility]) Unspecified essential hypertension Gastro-esophageal reflux disease without esophagitis Allergic rhinitis, unspecified Bilateral lower extremity edema- Primary Morbid (severe) obesity due to excess calories ([facility]) Body mass index (BMI) 45.0-49.9, adult ([facility]) Pre-diabetes Other abnormal glucose Bilateral lower extremity edema- Primary Essential (primary) hypertension ([facility]) Unspecified essential hypertension Allergic rhinitis, unspecified OSMANY (obstructive sleep apnea) Obstructive sleep apnea (adult) (pediatric) Primary hypertension ([facility]) Unspecified essential hypertension Morbid obesity ([facility]) Morbid obesity Acute cystitis without hematuria- Primary Tobacco dependence Tobacco use disorder Needs flu shot Need for prophylactic vaccination and inoculation against influenza Morbid obesity ([facility]) Morbid obesity Well woman exam with routine gynecological exam- Primary Routine gynecological examination Morbid obesity ([facility]) Morbid obesity Allergic rhinitis, unspecified documented in this encounter [facility]* Diagnosis Left foot pain- Primary Pain in soft tissues of limb Primary hypertension ([facility]) Unspecified essential hypertension Class 3 severe obesity due to excess calories without serious comorbidity with body mass index (BMI) of 45.0 to 49.9 in adult ([facility]) Encounter for annual wellness visit (AWV) in Medicare patient- Primary OSMANY (obstructive sleep apnea) Obstructive sleep apnea (adult) (pediatric) Chronic pain disorder Chronic pain syndrome Gastroesophageal reflux disease, unspecified whether esophagitis present Overactive bladder Hypertonicity of bladder Lower extremity edema Edema Pre-diabetes Other abnormal glucose Morbid obesity ([facility]) Morbid obesity Yeast infection of the skin Candidiasis of skin and nails Tobacco dependence Tobacco use disorder Mood disorder ([facility]) Unspecified episodic mood disorder Primary hypertension ([facility]) Unspecified essential hypertension Left hip pain Pain in joint, pelvic region and thigh Open wound of anterior abdominal wall, initial encounter Primary hypertension ([facility]/HCC)- Primary Unspecified essential hypertension Yeast infection of the skin Candidiasis of skin and nails Morbid obesity ([facility]/HCC) Morbid obesity Primary hypertension ([facility]/HCC)- Primary Unspecified essential hypertension Encounter for screening mammogram for malignant neoplasm of breast Gastroesophageal reflux disease, unspecified whether esophagitis present Acute gout of right foot, unspecified cause Osteoporosis, unspecified osteoporosis type, unspecified pathological fracture presence ([facility]) Morbid obesity ([facility]) Morbid obesity Pre-diabetes Other abnormal glucose Anemia, unspecified type Vitamin deficiency Unspecified vitamin deficiency Post-viral cough syndrome Primary hypertension (CMS/HCC)- Primary Unspecified essential hypertension Allergic rhinitis, unspecified Acute cough Morbid obesity ([facility]) Morbid obesity Former cigarette smoker Personal history of tobacco use, presenting hazards to health Toxic metabolic encephalopathy- Primary Hemiparesis, right ([facility]) Unspecified hemiplegia affecting unspecified side Acute respiratory failure with hypoxia ([facility]) Heart murmur Undiagnosed cardiac murmurs Primary hypertension ([facility]) Unspecified essential hypertension Morbid obesity ([facility]) Morbid obesity Bipolar disorder with severe depression ([facility]) Slurred speech Other speech disturbance Bilateral lower extremity edema- Primary Primary hypertension ([facility]/HCC) Unspecified essential hypertension Lower extremity edema Edema Essential (primary) hypertension ([facility]) Unspecified essential hypertension Gastro-esophageal reflux disease without esophagitis Allergic rhinitis, unspecified Bilateral lower extremity edema- Primary Morbid (severe) obesity due to excess calories ([facility]) Body mass index (BMI) 45.0-49.9, adult ([facility]) Pre-diabetes Other abnormal glucose Bilateral lower extremity edema- Primary Essential (primary) hypertension ([facility]/HCC) Unspecified essential hypertension Allergic rhinitis, unspecified OSMANY (obstructive sleep apnea) Obstructive sleep apnea (adult) (pediatric) Primary hypertension ([facility]) Unspecified essential hypertension Morbid obesity ([facility]) Morbid obesity Acute cystitis without hematuria- Primary Tobacco dependence Tobacco use disorder Needs flu shot Need for prophylactic vaccination and inoculation against influenza Morbid obesity (CMS/HCC) Morbid obesity Well woman exam with routine gynecological exam- Primary Routine gynecological examination Morbid obesity (CMS/HCC) Morbid obesity Yeast infection of the skin Candidiasis of skin and nails documented in this encounter [facility]* Diagnosis Left foot pain- Primary Pain in soft tissues of limb Primary hypertension ([facility]) Unspecified essential hypertension Class 3 severe obesity due to excess calories without serious comorbidity with body mass index (BMI) of 45.0 to 49.9 in adult ([facility]) Encounter for annual wellness visit (AWV) in Medicare patient- Primary OSMANY (obstructive sleep apnea) Obstructive sleep apnea (adult) (pediatric) Chronic pain disorder Chronic pain syndrome Gastroesophageal reflux disease, unspecified whether esophagitis present Overactive bladder Hypertonicity of bladder Lower extremity edema Edema Pre-diabetes Other abnormal glucose Morbid obesity ([facility]) Morbid obesity Yeast infection of the skin Candidiasis of skin and nails Tobacco dependence Tobacco use disorder Mood disorder ([facility]) Unspecified episodic mood disorder Primary hypertension ([facility]) Unspecified essential hypertension Left hip pain Pain in joint, pelvic region and thigh Open wound of anterior abdominal wall, initial encounter Primary hypertension ([facility])- Primary Unspecified essential hypertension Yeast infection of the skin Candidiasis of skin and nails Morbid obesity ([facility]) Morbid obesity Primary hypertension ([facility])- Primary Unspecified essential hypertension Encounter for screening mammogram for malignant neoplasm of breast Gastroesophageal reflux disease, unspecified whether esophagitis present Acute gout of right foot, unspecified cause Osteoporosis, unspecified osteoporosis type, unspecified pathological fracture presence ([facility]) Morbid obesity ([facility]) Morbid obesity Pre-diabetes Other abnormal glucose Anemia, unspecified type Vitamin deficiency Unspecified vitamin deficiency Post-viral cough syndrome Primary hypertension ([facility])- Primary Unspecified essential hypertension Allergic rhinitis, unspecified Acute cough Morbid obesity ([facility]) Morbid obesity Former cigarette smoker Personal history of tobacco use, presenting hazards to health Toxic metabolic encephalopathy- Primary Hemiparesis, right ([facility]) Unspecified hemiplegia affecting unspecified side Acute respiratory failure with hypoxia ([facility]) Heart murmur Undiagnosed cardiac murmurs Primary hypertension ([facility]) Unspecified essential hypertension Morbid obesity ([facility]) Morbid obesity Bipolar disorder with severe depression ([facility]) Slurred speech Other speech disturbance Bilateral lower extremity edema- Primary Primary hypertension ([facility]) Unspecified essential hypertension Lower extremity edema Edema Essential (primary) hypertension ([facility]) Unspecified essential hypertension Gastro-esophageal reflux disease without esophagitis Allergic rhinitis, unspecified Bilateral lower extremity edema- Primary Morbid (severe) obesity due to excess calories ([facility]) Body mass index (BMI) 45.0-49.9, adult ([facility]) Pre-diabetes Other abnormal glucose Bilateral lower extremity edema- Primary Essential (primary) hypertension ([facility]) Unspecified essential hypertension Allergic rhinitis, unspecified OSMANY (obstructive sleep apnea) Obstructive sleep apnea (adult) (pediatric) Primary hypertension ([facility]) Unspecified essential hypertension Morbid obesity ([facility]) Morbid obesity Acute cystitis without hematuria- Primary Tobacco dependence Tobacco use disorder Needs flu shot Need for prophylactic vaccination and inoculation against influenza Morbid obesity (CMS/HCC) Morbid obesity Well woman exam with routine gynecological exam- Primary Routine gynecological examination Morbid obesity ([facility]/HCC) Morbid obesity Metabolic encephalopathy- Primary OSMANY (obstructive sleep apnea) Obstructive sleep apnea (adult) (pediatric) Restless leg Restless legs syndrome (RLS) 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 ([facility]) Degeneration of intervertebral disc of lumbar region with discogenic back pain and lower extremity pain Memory change Memory loss documented in this encounter [facility]* Diagnosis Left foot pain- Primary Pain in soft tissues of limb Primary hypertension ([facility]) Unspecified essential hypertension Class 3 severe obesity due to excess calories without serious comorbidity with body mass index (BMI) of 45.0 to 49.9 in adult ([facility]) Encounter for annual wellness visit (AWV) in Medicare patient- Primary OSMANY (obstructive sleep apnea) Obstructive sleep apnea (adult) (pediatric) Chronic pain disorder Chronic pain syndrome Gastroesophageal reflux disease, unspecified whether esophagitis present Overactive bladder Hypertonicity of bladder Lower extremity edema Edema Pre-diabetes Other abnormal glucose Morbid obesity ([facility]) Morbid obesity Yeast infection of the skin Candidiasis of skin and nails Tobacco dependence Tobacco use disorder Mood disorder ([facility]) Unspecified episodic mood disorder Primary hypertension ([facility]) Unspecified essential hypertension Left hip pain Pain in joint, pelvic region and thigh Open wound of anterior abdominal wall, initial encounter Primary hypertension ([facility])- Primary Unspecified essential hypertension Yeast infection of the skin Candidiasis of skin and nails Morbid obesity ([facility]) Morbid obesity Primary hypertension ([facility])- Primary Unspecified essential hypertension Encounter for screening mammogram for malignant neoplasm of breast Gastroesophageal reflux disease, unspecified whether esophagitis present Acute gout of right foot, unspecified cause Osteoporosis, unspecified osteoporosis type, unspecified pathological fracture presence ([facility]) Morbid obesity ([facility]) Morbid obesity Pre-diabetes Other abnormal glucose Anemia, unspecified type Vitamin deficiency Unspecified vitamin deficiency Post-viral cough syndrome Primary hypertension ([facility])- Primary Unspecified essential hypertension Allergic rhinitis, unspecified Acute cough Morbid obesity ([facility]) Morbid obesity Former cigarette smoker Personal history of tobacco use, presenting hazards to health Toxic metabolic encephalopathy- Primary Hemiparesis, right ([facility]) Unspecified hemiplegia affecting unspecified side Acute respiratory failure with hypoxia ([facility] Heart murmur Undiagnosed cardiac murmurs Primary hypertension ([facility]) Unspecified essential hypertension Morbid obesity ([facility]) Morbid obesity Bipolar disorder with severe depression ([facility]) Slurred speech Other speech disturbance Bilateral lower extremity edema- Primary Primary hypertension ([facility]) Unspecified essential hypertension Lower extremity edema Edema Essential (primary) hypertension ([facility]) Unspecified essential hypertension Gastro-esophageal reflux disease without esophagitis Allergic rhinitis, unspecified Bilateral lower extremity edema- Primary Morbid (severe) obesity due to excess calories ([facility]) Body mass index (BMI) 45.0-49.9, adult ([facility]) Pre-diabetes Other abnormal glucose Bilateral lower extremity edema- Primary Essential (primary) hypertension ([facility]) Unspecified essential hypertension Allergic rhinitis, unspecified OSMANY (obstructive sleep apnea) Obstructive sleep apnea (adult) (pediatric) Primary hypertension ([facility]) Unspecified essential hypertension Morbid obesity ([facility]) Morbid obesity Acute cystitis without hematuria- Primary Tobacco dependence Tobacco use disorder Needs flu shot Need for prophylactic vaccination and inoculation against influenza Morbid obesity ([facility]) Morbid obesity Well woman exam with routine gynecological exam- Primary Routine gynecological examination Morbid obesity ([facility]) Morbid obesity Altered mental status, unspecified altered mental status type- Primary Restless leg Restless legs syndrome (RLS) 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[facility]) OSMANY (obstructive sleep apnea) Obstructive sleep apnea (adult) (pediatric) documented in this encounter [facility]* Diagnosis Left foot pain- Primary Pain in soft tissues of limb Primary hypertension ([facility]) Unspecified essential hypertension Class 3 severe obesity due to excess calories without serious comorbidity with body mass index (BMI) of 45.0 to 49.9 in adult ([facility]) Encounter for annual wellness visit (AWV) in Medicare patient- Primary OSMANY (obstructive sleep apnea) Obstructive sleep apnea (adult) (pediatric) Chronic pain disorder Chronic pain syndrome Gastroesophageal reflux disease, unspecified whether esophagitis present Overactive bladder Hypertonicity of bladder Lower extremity edema Edema Pre-diabetes Other abnormal glucose Morbid obesity ([facility]/HCC) Morbid obesity Yeast infection of the skin Candidiasis of skin and nails Tobacco dependence Tobacco use disorder Mood disorder ([facility]) Unspecified episodic mood disorder Primary hypertension ([facility]) Unspecified essential hypertension Left hip pain Pain in joint, pelvic region and thigh Open wound of anterior abdominal wall, initial encounter Primary hypertension ([facility]/HCC)- Primary Unspecified essential hypertension Yeast infection of the skin Candidiasis of skin and nails Morbid obesity ([facility]) Morbid obesity Primary hypertension ([facility])- Primary Unspecified essential hypertension Encounter for screening mammogram for malignant neoplasm of breast Gastroesophageal reflux disease, unspecified whether esophagitis present Acute gout of right foot, unspecified cause Osteoporosis, unspecified osteoporosis type, unspecified pathological fracture presence ([facility]) Morbid obesity ([facility]) Morbid obesity Pre-diabetes Other abnormal glucose Anemia, unspecified type Vitamin deficiency Unspecified vitamin deficiency Post-viral cough syndrome Primary hypertension ([facility])- Primary Unspecified essential hypertension Allergic rhinitis, unspecified Acute cough Morbid obesity ([facility]) Morbid obesity Former cigarette smoker Personal history of tobacco use, presenting hazards to health Toxic metabolic encephalopathy- Primary Hemiparesis, right ([facility]) Unspecified hemiplegia affecting unspecified side Acute respiratory failure with hypoxia ([facility]) Heart murmur Undiagnosed cardiac murmurs Primary hypertension ([facility]) Unspecified essential hypertension Morbid obesity ([facility]) Morbid obesity Bipolar disorder with severe depression ([facility]) Slurred speech Other speech disturbance Bilateral lower extremity edema- Primary Primary hypertension ([facility]) Unspecified essential hypertension Lower extremity edema Edema Essential (primary) hypertension ([facility]) Unspecified essential hypertension Gastro-esophageal reflux disease without esophagitis Allergic rhinitis, unspecified Bilateral lower extremity edema- Primary Morbid (severe) obesity due to excess calories ([facility]) Body mass index (BMI) 45.0-49.9, adult ([facility]) Pre-diabetes Other abnormal glucose Bilateral lower extremity edema- Primary Essential (primary) hypertension ([facility]) Unspecified essential hypertension Allergic rhinitis, unspecified OSMANY (obstructive sleep apnea) Obstructive sleep apnea (adult) (pediatric) Primary hypertension ([facility]) Unspecified essential hypertension Morbid obesity ([facility]) Morbid obesity Acute cystitis without hematuria- Primary Tobacco dependence Tobacco use disorder Needs flu shot Need for prophylactic vaccination and inoculation against influenza Morbid obesity ([facility]/HCC) Morbid obesity Well woman exam with routine gynecological exam- Primary Routine gynecological examination Morbid obesity (CMS/HCC) Morbid obesity Altered mental status, unspecified altered mental status type- Primary Memory change Memory loss Concentration deficit 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 ([facility]) PTSD (post-traumatic stress disorder) ([facility]) Posttraumatic stress disorder Bipolar affective disorder, remission status unspecified ([facility]) Family history of dementia Family history of other neurological diseases documented in this encounter [facility]* Diagnosis Encounter for annual wellness [...] Tobacco dependence Tobacco use disorder Mood disorder ([facility]) Unspecified episodic mood disorder Primary hypertension ([facility]) Unspecified essential hypertension Left hip pain Pain in joint, pelvic region and thigh Open wound of anterior abdominal wall, initial encounter Primary hypertension (CMS/HCC)- Primary Unspecified essential hypertension Yeast infection of the skin Candidiasis of skin and nails Morbid obesity (CMS/HCC) Morbid obesity Primary hypertension ([facility]/HCC)- Primary Unspecified essential hypertension Allergic rhinitis, unspecified Acute cough Morbid obesity ([facility]) Morbid obesity Former cigarette smoker Personal history of tobacco use, presenting hazards to health Toxic metabolic encephalopathy- Primary Hemiparesis, right ([facility]) Unspecified hemiplegia affecting unspecified side Acute respiratory failure with hypoxia ([facility]) Heart murmur Undiagnosed cardiac murmurs Primary hypertension ([facility]/HCC) Unspecified essential hypertension Morbid obesity ([facility]/HCC) Morbid obesity Bipolar disorder with severe depression ([facility]) Slurred speech Other speech disturbance Bilateral lower extremity edema- Primary Primary hypertension (CMS/HCC) Unspecified essential hypertension Lower extremity edema Edema Essential (primary) hypertension (CMS/HCC) Unspecified essential hypertension Gastro-esophageal reflux disease without esophagitis Allergic rhinitis, unspecified Bilateral lower extremity edema- Primary Morbid (severe) obesity due to excess calories ([facility]) Body mass index (BMI) 45.0-49.9, adult ([facility]) Pre-diabetes Other abnormal glucose Bilateral lower extremity [...] gynecological examination Morbid obesity (CMS/HCC) Morbid obesity Restless leg Restless legs syndrome (RLS) Metabolic encephalopathy- Primary OSMANY (obstructive sleep apnea) Obstructive sleep apnea (adult) (pediatric) Morbid obesity (CMS/HCC) Morbid obesity Bilateral lower extremity edema Tobacco dependence Tobacco use disorder Bipolar disorder with severe depression (CMS/HCC) At risk for polypharmacy Anxiety Anxiety state, [...] health Toxic metabolic encephalopathy- Primary Hemiparesis, right ([facility]) Unspecified hemiplegia affecting unspecified side Acute respiratory failure with hypoxia ([facility]) Heart murmur Undiagnosed cardiac murmurs Primary hypertension [...] Morbid (severe) obesity due to excess calories ([facility]) Body mass index (BMI) 45.0-49.9, adult ([facility]) Pre-diabetes Other abnormal glucose Bilateral lower extremity edema- Primary Essential (primary) hypertension ([facility]) Unspecified essential hypertension Allergic rhinitis, unspecified OSMANY (obstructive sleep apnea) Obstructive sleep apnea (adult) (pediatric) Primary hypertension ([facility]) Unspecified essential hypertension Morbid obesity ([facility]) Morbid obesity Acute cystitis without hematuria- Primary Tobacco dependence Tobacco use disorder Needs flu shot Need for prophylactic vaccination and inoculation against influenza Morbid obesity ([facility]) Morbid obesity Well woman exam with routine gynecological exam- Primary Routine gynecological examination Morbid obesity ([facility]) Morbid obesity Metabolic encephalopathy- Primary OSMANY (obstructive sleep apnea) Obstructive sleep apnea (adult) (pediatric) Morbid obesity ([facility]) Morbid obesity Bilateral lower extremity edema Tobacco dependence Tobacco use disorder Bipolar disorder with severe depression ([facility]) At risk for polypharmacy Anxiety Anxiety state, unspecified Primary hypertension ([facility]) Unspecified essential hypertension Right bundle branch block (RBBB) determined by electrocardiography [facility] Diagnosis Yeast infection of the skin- Primary Candidiasis of skin and nails documented in this encounter [facility]* Diagnosis 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[facility])- Primary Restless leg Restless legs syndrome (RLS) Metabolic encephalopathy documented in this [facility]* Diagnosis OSMANY (obstructive sleep apnea)- Primary Obstructive sleep apnea (adult) (pediatric) Restless leg Restless legs syndrome (RLS) documented in this encounter [facility]* Diagnosis Bilateral lower extremity edema- Primary Essential (primary) hypertension ([facility]) Unspecified essential hypertension Allergic rhinitis, unspecified OSMANY (obstructive sleep apnea) Obstructive sleep apnea (adult) (pediatric) Primary hypertension ([facility]) Unspecified essential hypertension Morbid obesity ([facility]) Morbid obesity documented in this encounter [facility] [...] Edema Pre-diabetes Other abnormal glucose Morbid obesity ([facility]) Morbid obesity Yeast infection of the skin Candidiasis of skin and nails Tobacco dependence Tobacco use disorder Mood disorder ([facility]) Unspecified episodic mood disorder Primary hypertension ([facility]) Unspecified essential hypertension Left hip pain Pain in joint, pelvic region and thigh Open wound of anterior abdominal wall, initial encounter Primary hypertension ([facility])- Primary Unspecified essential hypertension Yeast infection of the skin Candidiasis of skin and nails Morbid obesity ([facility]) Morbid obesity Primary hypertension ([facility])- Primary Unspecified essential hypertension Allergic rhinitis, unspecified Acute cough Morbid obesity ([facility]) Morbid obesity Former cigarette smoker Personal history of tobacco use, presenting hazards to health Toxic metabolic encephalopathy- Primary Hemiparesis, right ([facility]) Unspecified hemiplegia affecting unspecified side Acute respiratory failure with hypoxia ([facility]) Heart murmur Undiagnosed cardiac murmurs Primary hypertension ([facility]) Unspecified essential hypertension Morbid obesity ([facility]) Morbid obesity Bipolar disorder with severe depression ([facility]) Slurred speech Other speech disturbance Bilateral lower extremity edema- Primary Primary hypertension ([facility]) Unspecified essential hypertension Lower extremity edema Edema Essential (primary) hypertension ([facility]) Unspecified essential hypertension Gastro-esophageal reflux disease without esophagitis Allergic rhinitis, unspecified Bilateral lower extremity edema- Primary Morbid (severe) obesity due to excess calories ([facility]) Body mass index (BMI) 45.0-49.9, adult ([facility]) Pre-diabetes Other abnormal glucose Bilateral lower extremity edema- Primary Essential (primary) hypertension ([facility]) Unspecified essential hypertension Allergic rhinitis, unspecified OSMANY (obstructive sleep apnea) Obstructive sleep apnea (adult) (pediatric) Primary hypertension ([facility]) Unspecified essential hypertension Morbid obesity ([facility]) Morbid obesity Acute cystitis without hematuria- Primary Tobacco dependence Tobacco use disorder Needs flu shot Need for prophylactic vaccination and inoculation against influenza Morbid obesity ([facility]) Morbid obesity Well woman exam with routine gynecological exam- Primary Routine gynecological examination Morbid obesity ([facility]) Morbid obesity Metabolic encephalopathy- Primary OSMANY (obstructive sleep apnea) Obstructive sleep apnea (adult) (pediatric) Morbid obesity ([facility]) Morbid obesity Bilateral lower extremity edema Tobacco dependence Tobacco use disorder Bipolar disorder with severe depression ([facility]) At risk for polypharmacy Anxiety Anxiety state, unspecified Primary hypertension (CMS/HCC) Unspecified essential hypertension Right bundle branch block (RBBB) determined by electrocardiography Metabolic encephalopathy- Primary Memory change Memory loss Altered mental status, unspecified altered mental status type Concentration deficit PTSD (post-traumatic stress disorder) (CMS/HCC) Posttraumatic stress disorder Bipolar affective disorder, remission status unspecified ([facility]) Family history of dementia Family history of other neurological diseases 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[facility]) OSMANY (obstructive sleep apnea) Obstructive sleep apnea (adult) (pediatric) documented in this encounter [facility]* Diagnosis Encounter for annual wellness [...] Tobacco dependence Tobacco use disorder Mood disorder ([facility]) Unspecified episodic mood disorder Primary hypertension ([facility]) Unspecified essential hypertension Left hip pain Pain [...] health Toxic metabolic encephalopathy- Primary Hemiparesis, right ([facility]) Unspecified hemiplegia affecting unspecified side Acute respiratory failure with hypoxia ([facility]) Heart murmur Undiagnosed cardiac murmurs Primary hypertension (CMS/HCC) Unspecified essential hypertension Morbid obesity (CMS/HCC) Morbid obesity Bipolar disorder with severe depression ([facility]) Slurred speech Other speech disturbance Bilateral lower extremity edema- Primary Primary hypertension (CMS/HCC) Unspecified essential hypertension Lower extremity edema Edema Essential (primary) hypertension (CMS/HCC) Unspecified essential hypertension Gastro-esophageal reflux disease without esophagitis Allergic rhinitis, unspecified Bilateral lower extremity edema- Primary Morbid (severe) obesity due to excess calories ([facility]) Body mass index (BMI) 45.0-49.9, adult ([facility]) Pre-diabetes Other abnormal glucose Bilateral lower extremity [...] use disorder Bipolar disorder with severe depression (CMS/HCC) At risk for polypharmacy Anxiety Anxiety state, [...] health Toxic metabolic encephalopathy- Primary Hemiparesis, right (CMS/HCC) Unspecified hemiplegia affecting unspecified side Acute respiratory failure with hypoxia ([facility]) Heart murmur Undiagnosed cardiac murmurs Primary hypertension (CMS/HCC) Unspecified essential hypertension Morbid obesity (CMS/HCC) Morbid obesity Bipolar disorder with severe depression (CMS/HCC) Slurred speech Other speech disturbance Bilateral lower extremity edema- Primary Primary hypertension ([facility]) Unspecified essential hypertension Lower extremity edema Edema Essential (primary) hypertension ([facility]) Unspecified essential hypertension Gastro-esophageal reflux disease without esophagitis Allergic rhinitis, unspecified Bilateral lower extremity edema- Primary Morbid (severe) obesity due to excess calories ([facility]) Body mass index (BMI) 45.0-49.9, adult ([facility]) Pre-diabetes Other abnormal glucose Bilateral lower extremity edema- Primary Essential (primary) hypertension ([facility]) Unspecified essential hypertension Allergic rhinitis, unspecified OSMANY (obstructive sleep apnea) Obstructive sleep apnea (adult) (pediatric) Primary hypertension ([facility]) Unspecified essential hypertension Morbid obesity ([facility]) Morbid obesity Acute cystitis without hematuria- Primary Tobacco dependence Tobacco use disorder Needs flu shot Need for prophylactic vaccination and inoculation against influenza Morbid obesity ([facility]) Morbid obesity Well woman exam with routine gynecological exam- Primary Routine gynecological examination Morbid obesity ([facility]) Morbid obesity Metabolic encephalopathy- Primary OSMANY (obstructive sleep apnea) Obstructive sleep apnea (adult) (pediatric) Morbid obesity ([facility]) Morbid obesity Bilateral lower extremity edema Tobacco dependence Tobacco use disorder Bipolar disorder with severe depression ([facility]) At risk for polypharmacy Anxiety Anxiety state, unspecified Primary hypertension ([facility]) Unspecified essential hypertension Right bundle branch block (RBBB) determined by electrocardiography Primary hypertension ([facility])- Primary Unspecified essential hypertension Chronic kidney disease, stage 3a (HCC) ([facility]) Morbid (severe) obesity due to excess calories ([facility]) Body mass index (BMI) 45.0-49.9, adult ([facility]) OSMANY (obstructive sleep apnea) Obstructive sleep apnea (adult) (pediatric) Hemiparesis, right ([facility]) Unspecified hemiplegia affecting unspecified side Gastroesophageal reflux disease, unspecified whether esophagitis present Metabolic encephalopathy Essential (primary) hypertension ([facility]) Unspecified essential hypertension Allergic rhinitis, unspecified Gastro-esophageal reflux disease without esophagitis Bilateral lower extremity edema documented in this encounter [facility] [...] Tobacco dependence Tobacco use disorder Mood disorder ([facility]) Unspecified episodic mood disorder Primary hypertension ([facility]) Unspecified essential hypertension Left hip pain Pain in joint, pelvic region and thigh Open wound of anterior abdominal wall, initial encounter Primary hypertension (CMS/HCC)- Primary Unspecified essential hypertension Yeast infection of the skin Candidiasis of skin and nails Morbid obesity ([facility]) Morbid obesity Primary hypertension (CMS/HCC)- Primary Unspecified essential hypertension Allergic rhinitis, unspecified Acute cough Morbid obesity ([facility]) Morbid obesity Former cigarette smoker Personal history of tobacco use, presenting hazards to health Toxic metabolic encephalopathy- Primary Hemiparesis, right ([facility]) Unspecified hemiplegia affecting unspecified side Acute respiratory failure with hypoxia ([facility]) Heart murmur Undiagnosed cardiac murmurs Primary hypertension ([facility]) Unspecified essential hypertension Morbid obesity ([facility]) Morbid obesity Bipolar disorder with severe depression ([facility]) Slurred speech Other speech disturbance Bilateral lower extremity edema- Primary Primary hypertension ([facility]) Unspecified essential hypertension Lower extremity edema Edema Essential (primary) hypertension ([facility]) Unspecified essential hypertension Gastro-esophageal reflux disease without esophagitis Allergic rhinitis, unspecified Bilateral lower extremity edema- Primary Morbid (severe) obesity due to excess calories ([facility]) Body mass index (BMI) 45.0-49.9, adult ([facility]) Pre-diabetes Other abnormal glucose Bilateral lower extremity edema- Primary Essential (primary) hypertension ([facility]) Unspecified essential hypertension Allergic rhinitis, unspecified OSMANY (obstructive sleep apnea) Obstructive sleep apnea (adult) (pediatric) Primary hypertension ([facility]) Unspecified essential hypertension Morbid obesity ([facility]) Morbid obesity Acute cystitis without hematuria- Primary Tobacco dependence Tobacco use disorder Needs flu shot Need for prophylactic vaccination and inoculation against influenza Morbid obesity (CMS/HCC) Morbid obesity Well woman exam with routine gynecological exam- Primary Routine gynecological examination Morbid obesity (CMS/HCC) Morbid obesity Metabolic encephalopathy- Primary OSMANY (obstructive sleep apnea) Obstructive sleep apnea (adult) (pediatric) Morbid obesity ([facility]) Morbid obesity Bilateral lower extremity edema Tobacco dependence Tobacco use disorder Bipolar disorder with severe depression ([facility]) At risk for polypharmacy Anxiety Anxiety state, unspecified Primary hypertension (CMS/HCC) Unspecified essential hypertension Right bundle branch block (RBBB) determined by electrocardiography Primary hypertension (CMS/HCC)- Primary Unspecified essential hypertension Chronic kidney disease, stage 3a (HCC) ([facility]) Morbid (severe) obesity due to excess calories (CMS/HCC) Body mass index (BMI) 45.0-49.9, adult (CMS/HCC) OSMANY (obstructive sleep apnea) Obstructive sleep apnea (adult) (pediatric) Hemiparesis, right (CMS/HCC) Unspecified hemiplegia affecting unspecified side Gastroesophageal reflux disease, unspecified whether esophagitis present Metabolic encephalopathy Essential (primary) hypertension (CMS/HCC) Unspecified essential hypertension Allergic rhinitis, unspecified Gastro-esophageal reflux disease without esophagitis Bilateral lower extremity edema 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 ([facility])- Primary OSMANY (obstructive sleep apnea) Obstructive sleep apnea (adult) (pediatric) Metabolic encephalopathy Restless leg Restless legs syndrome (RLS) Degeneration of intervertebral disc of lumbar region with discogenic back pain and lower extremity pain documented in this encounter [facility] Author Jace Graham [facility] March 23, 2023 11:21am Note Date/Time March 23, 2023 11:21am [facility] [address] [place] [address] Gastroenterology H&P Signed Patient: Michelle Be MR#: [id number] : 1960 Acct:[id number] Age/Sex: 62 / F Adm Date: 3 Loc: Room: Type: [facility] Attending Dr: Jace Graham MD Copies [...] signed by Jace Graham MD> 03/23/23 1121 [facility] Work Phone: History general Narrative - [...] see above surg Hospitalization History stroke 2018 [employer] Other Hospital Discharge instructions Additional Instructions Regular Diet No [facility] Work [facility]: Hospital Discharge instructions Additional [...] years. -Follow up with PCP. -Office number [phone].[facility] Work Phone: Reason for visit Narrative* Consultation (Routine) - Closed Specialty Diagnoses / Procedures Referred By Radha t Referred To Contact Neuropsychology Diagnoses Memory change Procedures [place] OFFICE/OUTPATIENT [facility] Juany Ramirez PA [address] [place] [address] Phone: tel: fax: David Foster, PhD [address] [address] Phone: tel: fax: Referral ID Status Reason Start Date Expiration Date V isits Requested Visits Authorized [id number] Closed Specialty Services Required 03/07/2024 09/03/2024 1 1 [facility] Healthcare Summary Purpose Family History No Family [...] Documents on File Type Date Recorded Patient Clerical Order Filler Expl anation Power of Historical Archeologist 03/10/2024 3:12 PM POA Documents on File Type Date Recorded Patient Clerical Order Filler Expl anation Power of Historical Archeologist 03/10/2024 3:12 PM POA Documents on File Type Date Recorded Patient Clerical Order Filler Expl anation Power of Historical Archeologist 03/16/2024 9:42 AM 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 DATE CREATED AUTHOR AUTHOR'S ORGANIZ ATION 08/16/2022 [facility] DATE CREATED AUTHOR AUTHOR'S ORGANIZ ATION 05/25/2024 [facility] Specialists [facility] DATE CREATED AUTHOR AUTHOR'S ORGANIZ ATION 05/28/2024 [facility] DATE CREATED AUTHOR AUTHOR'S ORGANIZ ATION 05/31/2024 [facility] y[facility] Care Teams (unrecognized sec [...] Hurtado RN Other Provider Active Lisa Crooks RN Other Provider Active Tash Mejias RN Other Provider Active Elzbieta Kim RN Other Provider Active Walker Pringle MD Other Provider Active Adelaida M Dials , HOTEL HOUSEMAN Other Provider Active Jessica Murillo , DO [...] MD Other Provider Active Joellen Le , COFFEE FARMER-C Other Provider Active Severo Yancey MD Other Provider Active Rao Webber MD Other Provider Active Yuan Shi MD Other Provider Active Delroy Ramirez MD Other Provider Active Berta Comer , DO Other Provider Active Negrito Ruiz , DO Other Provider Active Lacho Singh , DO Other Provider Active Rachana Hobson , HOTEL HOUSEMAN Other Provider Active Rob Lake , DO Other Provider Active Jeff Alvarez MD Other Provider Active Urmila Rinaldi , HOTEL HOUSEMAN Other Provider Active Bina Mayberry , HOTEL HOUSEMAN Other Provider Active Mir Bradford MD Other Provider Active Te Da Silva MD Other Provider Active Debra Landaverde RN Other Provider Active Team Status: Inactive Member Role Status Dates Adelaida Carrion Primary Care Provider Active Jace Graham MD Attending Provider Active Food Taster Relationship Specialty Start Date End Date José Luis Roberts MD [address] [place] [phone] PCP - General Family Medicine 05/18/23 Adelaida Carrion NP [address] [place] [phone] Referring Physician Nurse Practitioner 10/14/22 Food Taster Relationship Specialty Start Date End Date José Luis Roberts MD [address] [place] [phone] PCP - General Family Medicine 05/18/23 Adelaida Carrion NP [address] [place] [phone] Referring Physician Nurse Practitioner 10/14/22 Food Taster Relationship Specialty Start Date End Date José Luis Roberts MD [address] [place] [phone] PCP - General Family Medicine 05/18/23 Adelaida Carrion NP [address] [place] [phone] Referring Physician Nurse Practitioner 10/14/22 Food Taster Relationship Specialty Start Date End Date José Luis Roberts MD [address] [place] [phone] PCP - General Family Medicine 05/18/23 Adelaida Carrion NP Referring Physician Nurse Practitioner 10/14/22 Miriam Suarez DO [address] [place] [address] Referring Physician Neurology 06/29/23 [place] De Leon LPN Licensed Practical Nurse Family Medicine 12/18/23 Food Taster Relationship Specialty Start Date End Date José Luis Roberts MD [address] [place] [phone] PCP - General Family Medicine 05/18/23 Adelaida Carrion, BRIANA Referring Physician Nurse Practitioner 10/14/22 Miriam Suarez DO [address] [place] [address] Referring Physician Neurology 06/29/23 [place] De [place] LPN Licensed Practical Nurse Family Medicine 12/18/23 Food Taster Relationship Specialty Start Date End Date Unallocated, Noms ProviderMD [address] [place] [address] PCP - General Family Medicine 01/27/24 Miriam Suarez DO [address] [place] [address] Referring Physician Neurology 06/29/23 [place] De [place] LPN Licensed Practical Nurse Family Medicine 12/18/23 Adelaida Carrion, BRIANA [address] [place] [phone] Nurse Practitioner Family Medicine 01/27/24 Food Taster Relationship Specialty Start Date End Date Unallocated, Noms MD Mariela [address] [place] [address] PCP - General Family Medicine 01/27/24 Miriam Suarez DO [address] [place] [address] Referring Physician Neurology 06/29/23 [place] De [place] LPN Licensed Practical Nurse Family Medicine 12/18/23 Adelaida Carrion, BRIANA [address] [place] [phone] Nurse Practitioner Family Medicine 01/27/24 Food Taster Relationship Specialty Start Date End Date José Luis Roberts MD [address] [place] [phone] PCP - General Family Medicine 02/02/24 Miriam Suarez DO [address] [place] [address] Referring Physician Neurology 06/29/23 [place] De [place] LPN Licensed Practical Nurse Family Medicine 12/18/23 Adelaida Carrion, BRIANA [address] [place] [phone] Nurse Practitioner Family Medicine 01/27/24 Food Taster Relationship Specialty Start Date End Date José Luis Roberts MD [address] [place] [phone] PCP - General Family Medicine 02/02/24 Miriam Suarez DO [address] [place] [address] Referring Physician Neurology 06/29/23 Adelaida Carrion, BRIANA [address] [place] [phone] Nurse Practitioner Family Medicine 01/27/24 Bong Rosado MA Family Medicine 02/12/24 Food Taster Relationship Specialty Start Date End Date José Luis Roberts MD [address] [place] [phone] PCP - General Family Medicine 02/02/24 Miriam Suarez DO [address] [place] [address] Referring Physician Neurology 06/29/23 Adelaida Carrion NP [address] [place] [phone] Nurse Practitioner Family Medicine 01/27/24 Bong Rosado MA Family Medicine 02/12/24 Food Taster Relationship Specialty Start Date End Date José Luis Roberts MD [address] [place] [phone] PCP - General Family Medicine 02/02/24 Miriam Suarez DO [address] [place] [address] Referring Physician Neurology 06/29/23 Adelaida Carrion NP [address] [place] [phone] Nurse Practitioner Family Medicine 01/27/24 Bong Rosado MA Family Medicine 02/12/24 Food Taster Relationship Specialty Start Date End Date José Luis Roberts MD [address] [place] [phone] PCP - General Family Medicine 02/02/24 Miriam Suarez DO [address] [place] [address] Referring Physician Neurology 06/29/23 Adelaida Carrion NP [address] [place] [phone] Nurse Practitioner Family Medicine 01/27/24 Bong Rosado MA Family Medicine 02/12/24 Food Taster Relationship Specialty Start Date End Date José Luis Roberts MD [address] [place] [phone] PCP - General Family Medicine 02/02/24 Miriam Suarez DO [address] [place] [address] Referring Physician Neurology 06/29/23 Adelaida Carrion NP [address] [place] [phone] Nurse Practitioner Family Medicine 01/27/24 Bong Rosado MA Family Medicine 02/12/24 Food Taster Relationship Specialty Start Date End Date José Luis Roberts MD [address] [place] [phone] PCP - General Family Medicine 02/02/24 Miriam Suarez DO [address] [place] [address] Referring Physician Neurology 06/29/23 Adelaida Carrion, BRIANA [address] [place] [address] Nurse Practitioner Family Medicine 01/27/24 Bong Rosado MA Family Medicine 02/12/24 Food Taster Relationship Specialty Start Date End Date José Luis Roberts MD [address] [place] [phone] PCP - General Family Medicine 02/02/24 Miriam Suarez DO [address] [place] [address] Referring Physician Neurology 06/29/23 Adelaida Carrion NP [address] [place] [address] Nurse Practitioner Family Medicine 01/27/24 Bong Rosado MA Family Medicine 02/12/24 Food Taster Relationship Specialty Start Date End Date José Luis Roberts MD [address] [place] [phone] PCP - General Family Medicine 02/02/24 Miriam Suarez DO [address] [place] [address] Referring Physician Neurology 06/29/23 Adelaida Carrion NP [address] [place] [phone] Nurse Practitioner Family Medicine 01/27/24 Bong Rosado MA Family Medicine 02/12/24 Food Taster Relationship Specialty Start Date End Date José Luis Roberts MD [address] [place] [phone] PCP - General Family Medicine 02/02/24 Miriam Suarez DO [address] [place] [address] Referring Physician Neurology 06/29/23 Adelaida Carrion NP [address] [place] [phone] Nurse Practitioner Family Medicine 01/27/24 Bong Rosado MA Family Medicine 02/12/24 Food Taster Relationship Specialty Start Date End Date José Luis Roberts MD [address] [place] [phone] PCP - General Family Medicine 02/02/24 Miriam Suarez DO [address] [place] [address] Referring Physician Neurology 06/29/23 Adelaida Carrion NP [address] [place] [address] Nurse Practitioner Family Medicine 01/27/24 Bong Rosado MA Family Medicine 02/12/24 Food Taster Relationship Specialty Start Date End Date José Luis Roberts MD [address] [place] [phone] PCP - General Family Medicine 02/02/24 Miriam Suarez DO [address] [place] [address] Referring Physician Neurology 06/29/23 Adelaida Carrion NP [address] [place] [phone] Nurse Practitioner Family Medicine 01/27/24 Bong Rosado MA Family Medicine 02/12/24 Food Taster Relationship Specialty Start Date End Date José Luis Roberts MD [address] [place] [phone] PCP - General Family Medicine 05/18/23 Adelaida Carrion NP Referring Physician Nurse Practitioner 10/14/22 Miriam Suarez DO [address] [place] [address] Referring Physician Neurology 06/29/23 Mathew Parra LPN Licensed Practical Nurse Family Medicine 07/23/23 Food Taster Relationship Specialty Start Date End Date José Luis Roberts MD [address] [place] [phone] PCP - General Family Medicine 05/18/23 Adelaida Carrion NP Referring Physician Nurse Practitioner 10/14/22 Miriam Suarez DO [address] [place] [address] Referring Physician Neurology 06/29/23 Mathew Parra LPN Licensed Practical Nurse Family Medicine 07/23/23 Food Taster Relationship Specialty Start Date End Date José Luis Roberts MD [address] [place] [phone] PCP - General Family Medicine 05/18/23 Adelaida Carrion NP Referring Physician Nurse Practitioner 10/14/22 Miriam Suarez DO [address] [place], [place] [address] Referring Physician Neurology 06/29/23 Mathew Parra LPN Licensed Practical Nurse Family Medicine 07/23/23 Food Taster Relationship Specialty Start Date End Date José Luis Roberts MD [address] [place] [phone] PCP - General Family Medicine 05/18/23 Adelaida Carrion NP Referring Physician Nurse Practitioner 10/14/22 Miriam Suarez DO [address] [place] [address] Referring Physician Neurology 06/29/23 Mathew Parra LPN Licensed Practical Nurse Family Medicine 07/23/23 Food Taster Relationship Specialty Start Date End Date José Luis Roberts MD [address] [place] [phone] PCP - General Family Medicine 05/18/23 Adelaida Carrion NP Referring Physician Nurse Practitioner 10/14/22 Miriam Suarez DO [address] [place], [place] [phone] Referring Physician Neurology 06/29/23 [place] LPN Licensed Practical Nurse Family Medicine 12/18/23 Food Taster Relationship Specialty Start Date End Date José Luis Roberts MD [address] [place] [address] PCP - General Family Medicine 05/18/23 Adelaida Carrion NP Referring Physician Nurse Practitioner 10/14/22 Miriam Suarez DO [address] [place] [address] Referring Physician Neurology 06/29/23 [place] LPN Licensed Practical Nurse Family Medicine 12/18/23 Food Taster Relationship Specialty Start Date End Date José Luis Roberts MD [address] [place] [address] PCP - General Family Medicine 05/18/23 Adelaida Carrion NP Referring Physician Nurse Practitioner 10/14/22 Miriam Suarez DO [address] [place] [address] Referring Physician Neurology 06/29/23 [place] De [place] LPN Licensed Practical Nurse Family Medicine 12/18/23 Food Taster Relationship Specialty Start Date End Date José Luis Roberts MD [address] [place] [address] PCP - General Family Medicine 02/02/24 Miriam Suarez DO [address] [place] [address] Referring Physician Neurology 06/29/23 Adelaida Carrion, BRIANA [address] [place] [address] Nurse Practitioner Family Medicine 01/27/24 Bong Rosado MA Family Medicine 02/12/24 Food Taster Relationship Specialty Start Date End Date José Luis Roberts MD [address] [place] [address] PCP - General Family Medicine 02/02/24 Miriam Suarez DO [address] [place] [address] Referring Physician Neurology 06/29/23 Adelaida Carrion NP [address] [place] [address] Nurse Practitioner Family Medicine 01/27/24 Bong Rosado MA Family Medicine 02/12/24 Food Taster Relationship Specialty Start Date End Date José Luis Roberts MD [address] [place] [phone] PCP - General Family Medicine 02/02/24 Miriam Suarez DO [address] [place] [address] Referring Physician Neurology 06/29/23 Adelaida Carrion NP [address] [place] [address] Nurse Practitioner Family Medicine 01/27/24 Bong Rosado MA Family Medicine 02/12/24 Food Taster Relationship Specialty Start Date End Date José Luis Roberts MD [address] [place] [phone] PCP - General Family Medicine 02/02/24 Miriam Suarez DO [address] [place] [address] Referring Physician Neurology 06/29/23 Adelaida Carrion NP [address] [place] [address] Nurse Practitioner Family Medicine 01/27/24 Bong Rosado MA [facility] 02/12/24 Food Taster Relationship Specialty Start Date End Date José Luis Roberts MD [address] [place] [address] PCP - General Family Medicine 02/02/24 Miriam Suarez DO [address] [place] [address] Referring Physician Neurology 06/29/23 Adelaida Carrion NP [address] [place] [address] Nurse Practitioner Family Medicine 01/27/24 Bong Rosado MA [facility] 02/12/24 REASON FOR VISIT (unrecogniz ed section and content) Reason Comments Med Refill Reason Comments Restless Legs Encephalopathy Reason Comments Hospital Follow-up Reason Comments Anxiety Reason Comments Sleep Apnea Reason Onset Date Comments Med Refill 04/12/2024 Reason Comments Encephalopathy FOR RECORDS PERTAINING TO PATIENTS WHO ARE [...] BE BASED ON THE PRIMARY CLINICAL RECORDS. [employer] provides no warranty or guarantee of the accuracy or completeness of information in this document.
[2024-06-07 06:42] VITALS: BP 152/90; PULSE 74; TEMP 36.4; O2SAT 100
[2024-06-07] MEDS: 0.9 % SODIUM CHLORIDE 500 ML IV (07:13)
[2024-06-07] MEDS: METHYLPREDNISOLONE ACETATE 40 MG/ML VIAL INJ (07:32)
[2024-06-07] MEDS: LIDOCAINE HCL 2% 400 MG/20 ML MDV 5 ML INJ (07:32)
[2024-06-07] MEDS: BUPIVACAINE HCL 0.25% PF 25 MG/10 ML VIAL 5 ML INJ (07:32)
[2024-06-07 07:49] VITALS: BP 115/66; PULSE 78; TEMP 36.6; O2SAT 99
[2024-06-07 07:54] VITALS: BP 99/67; PULSE 76; O2SAT 99
--- NOTE | 2024-06-07 08:40 | W.PM.PROCNOT ---
Date of procedure: 06/07/24 Pre-op diagnosis: Lumbar spondylosis Post-op diagnosis: same as pre-op Procedure: Left Lumbar 1/2, 2/3 Radiofrequency ablation Under fluoroscopic guidance Rhizotomy was created using radio frequency ablation at 80?C for 90 seconds 1 to 2 lesions created at each site. Post lesioning injection of 2 mL each of 0.25% Marcaine and 2% lidocaine with Depo-Medrol 40mg. 0.5 to 1 mL injected at each site IV in place yes If Intravenous fluids: NS at KVO Anesthesia local 2% lidocaine for Anesthesia Other: MAC Timeout process compliant After informed consent obtained.Patient brought to the procedure room placed in the prone position skin overlying the area was prepped and draped in a sterile fashion using betadine. 25 gauge needle was used to create a skin wheal over each of the targeted areas utilizing 2% lidocaine. A rhizotomy needle with a 10 mm active tip was inserted over each of the anesthetized areas and directed towards each of the medial branches accomplished under fluoroscopic guidance. after encountering the same we had positive sensory stimulation, negative motor stimulation was noted. lesions were then created. Post lesioning, steroid solution was injected needles removed. Patient was transferred to recovery room in stable condition to be discharged home after meeting criteria. Anesthesia: MAC Surgeon: Tejal Montaño Condition: stable
== END 2024-06-07 08:16 | disposition home or self-care (01) ==
LOC: SURGOUT 06:18
PROVIDERS: PCP Nurse Practitioner; Visit Provider Anesthesiology Pain Medicine
DX: M47.816 Spondylosis without myelopathy or radiculopathy, lumbar region (principal)
CPT/HCPCS: 64635; 64636; J0665; J1010; J2704

== ENCOUNTER 2024-07-06 10:34 | Outpatient (OUT) | payer MEDICARE, SELFPAY ==
--- OUTSIDE RECORDS SUMMARY | 2024-07-06 10:43 | XMS_ITS | CCD ---
Author Organization [facility] Care Team Providers Care Front End Drupal Developer Name Role Phone ROSIERAHEIM, SUKI Admitting Unavailable EBRAHEIM, SUKI Attending Unavailable AICHHOLZ, ADELAIDA Referring Unavailable AICHHOLZ, ADELAIDA Primary Care Unavailable [place] Procedure Practitioner Unavailab SUKI Jacob Surgeon Unavailable [place] Procedure Practitioner Unavailab CHAPARRITA Goncalves Surgeon Unavailable BRIDGETTE MACEDO Admitting Unavailable BRIDGETTE MACEDO Attending Unavailable AICHHOLZ, GARMENT FOLDER ADELAIDA Primary Care Unavailable NIXON ., DR FINA Iverson Admitting Unavailable NIXON ., DR FINA Iverson Attending Unavailable AICHHOLZ, GARMENT FOLDER ADELAIDA Primary Care Unavailable MCDANIEL ., ZELDA Consulting Unavailable LAKSHMIPATHY ., NARENDRANATH Consulting Paula vailable LAKSHMIPATHY ., NARENDRANATH Admitting Paula vailable LAKSHMIPATHY ., NARENDRANATH Attending Paula vailable AICHHOLZ, GARMENT FOLDER ADELAIDA Primary Care Unavailable LAKSHMIPATHY ., NARENDRANATH Consulting Paula vailable AICHHOLZ, GARMENT FOLDER ADELAIDA Primary Care Unavailable MARKER ., DR CHAUDHRY Admitting Unavailable MARKER ., DR CHAUDHRY Attending Unavailable MARKER ., DR CHAUDHRY Consulting Unavailable AICHHOLZ, GARMENT FOLDER ADELAIDA Admitting Unavailable AICHHOLZ, GARMENT FOLDER ADELAIDA Attending Unavailable AICHHOLZ, GARMENT FOLDER ADELAIDA Primary Care Unavailable NIXON ., DR FINA Iverson Admitting Unavailable NIXON ., DR FINA Iverson Attending Unavailable AICHHOLZ, GARMENT FOLDER ADELAIDA Primary Care Unavailable MCDANIEL ., ZELDA Consulting Unavailable NIXON ., DR FINA Iverson Admitting Unavailable NIXON ., DR FINA Iverson Attending Unavailable AICHHOLZ, GARMENT FOLDER ADELAIDA Primary Care Unavailable MCDANIEL ., ZELDA Consulting Unavailable AICHHOLZ, GARMENT FOLDER ADELAIDA Admitting Unavailable AICHHOLZ, GARMENT FOLDER ADELAIDA Attending Unavailable AICHHOLZ, GARMENT FOLDER ADELAIDA Primary Care Unavailable AICHHOLZ, GARMENT FOLDER ADELAIDA Consulting Unavailable AICHHOLZ, GARMENT FOLDER ADELAIDA Admitting Unavailable AICHHOLZ, GARMENT FOLDER ADELAIDA Attending Unavailable AICHOLZ, GARMENT FOLDER ADELAIDA Primary Care Unavailable AICHHOLZ, GARMENT FOLDER ADELAIDA Consulting Unavailable MISC, DR COTE Admitting Unavailable MISC, DR COTE Attending Unavailable AICHOLZ, GARMENT FOLDER ADELAIDA Primary Care Unavailable AICHHOLZ, GARMENT FOLDER ADELAIDA Consulting Unavailable PRITESHC, DR COTE Consulting Unavailable STARR, DR KINGSLEY Atkins Consulting Unavailable NIXON ., DR FINA Iverson Admitting Unavailable NIXON ., DR FINA Iverson Attending Unavailable AICHOLZ, [facility] ADELAIDA Primary Care Unavailable MCDANIEL ., ZELDA Consulting Unavailable NIXON ., DR FINA Iverson Admitting Unavailable NIXON ., DR FINA Iverson Attending Unavailable [facility] Primary Care Unavailable NIXON ., DR FINA Iverson Consulting Unavailable OMID LAY Consulting Unavailable NIXON ., DR FINA Iverson Admitting Unavailable NIXON ., DR FINA Iverson Attending Unavailable [facility], [facility] ADELAIDA Primary Care Unavailable MCDANIEL ., ZELDA Consulting Unavailable AICHOLZ, [facility] ADELAIDA Primary Care Unavailable HALKER ., ARIAN Admitting Unavailable HALKER ., ARIAN Attending Unavailable LAKSHMIPATHY ., NARENDRANATH Consulting Paula vailable HALKER ., ARIAN Consulting Unavailable LAKSHMIPATHY ., NARENDRANATH Admitting Paula vailable LAKSHMIPATHY ., NARENDRANATH Attending Paula vailable [facility], [facility] ADELAIDA Primary Care Unavailable LAKSHMIPATHY ., NARENDRANATH Consulting Paula vailable AICHOLZ, GARMENT FOLDER ADELAIDA Admitting Unavailable AICHHOLZ, GARMENT FOLDER ADELAIDA Attending Unavailable AICHOLZ, GARMENT FOLDER ADELAIDA Primary Care Unavailable AICHHOLZ, GARMENT FOLDER ADELAIDA Consulting Unavailable BRIDGETTE MACEDO Admitting Unavailable BRIDGETTE MACEDO Attending Unavailable AICHHOLZ, GARMENT FOLDER ADELAIDA Primary Care Unavailable DR KINGSLEY CLEMENTS Consulting Unavailable BRIDGETTE MACEDO Consulting Unavailable GILMER NEVES Admitting Unavailable GILMER NEVES Attending Unavailable PURA, GILMER Consulting Unavailable AICHOLZ, GARMENT FOLDER ADELAIDA Primary Care Unavailable AICHHOLZ, GARMENT FOLDER ADELAIDA Primary Care Unavailable DR WILLI RINALDI Admitting Unavailable DEEJAY, DR WILLI Atkins Attending Unavailable DR WILLI RINALDI Consulting Unavailable AICHHOLZ, GARMENT FOLDER ADELAIDA Primary Care Unavailable ALMAZ ., DANNY Admitting Unavailable ALMAZ ., DANNY Attending Unavailable DR KINGSLEY CLEMENTS Consulting Unavailable ALMAZ ., DANNY Consulting Unavailable LAKSHMIPATHY ., NARENDRANATH Admitting Paula vailable LAKSHMIPATHY ., NARENDRANATH Attending Paula vailable AICHHOLZ, GARMENT FOLDER ADELAIDA Primary Care Unavailable AICHHOLZ, GARMENT FOLDER ADELAIDA Admitting Unavailable AICHHOLZ, GARMENT FOLDER ADELAIDA Attending Unavailable AICHHOLZ, GARMENT FOLDER ADELAIDA Primary Care Unavailable AICHHOLZ, GARMENT FOLDER ADELAIDA Admitting Unavailable AICHHOLZ, GARMENT FOLDER ADELAIDA Attending Unavailable AICHHOLZ, GARMENT FOLDER ADELAIDA Primary Care Unavailable AICHHOLZ, GARMENT FOLDER ADELAIDA Consulting Unavailable DR KINGSLEY CLEMENTS Consulting Unavailable HALKER ., ARIAN Admitting Unavailable HALKER ., ARIAN Attending Unavailable AICHHOLZ, GARMENT FOLDER ADELAIDA Primary Care Unavailable Aichholz, Adelaida J [...] Other Provider DO Jessica Murillo Other Provider [phone] MD Obdulio Bragg Other Provider DO [...] Provider MD Jace Graham Attending Provider Sheyla SALES ENABLEMENT ANALYST, Adelaida Unavailable José Luis Roberts MD Primary Care Provider Aichholz SALES ENABLEMENT ANALYST, Adelaida Unavailable Daniela GRAHAM, Miriam Unavailable Moises CAMPBELL, Diana Unavailable Unavailable Unallocated , Familias Provider Primary Care Yadirai kellee Aichbob SALES ENABLEMENT ANALYST, Adelaida Unavailable José Luis Roberts MD Primary Care Provider [phone] Bong Rosado MA Unavailable Unavailable Aida CAMPBELL, Mathew Unavailable Unavailable AICHHOLZ, ADELAIDA Attending Unavailable LOWE, JUANY Attending Unavailable AICHHOLZ, ADELAIDA Attending Unavailable AICHHOLZ, ADELAIDA Attending Unavailable AICHHOLZ, ADELAIDA Attending Unavailable AICHHOLZ, ADELAIDA Attending Unavailable AICHHOLZ, ADELAIDA Attending Unavailable WINDNASONAM VILLASENOR Attending Unavailable AICHHOLZ, AEDLAIDA Attending Unavailable WINDNASONAM VILLASENOR Attending Unavailable GILLMOR, JUANY Attending Unavailable AICHHOLZ, ADELAIDA Attending Unavailable AICHHOLZ, ADELAIDA Attending Unavailable AICHHOLZ, ADELAIDA Attending Unavailable LOWE, JUANY Attending Unavailable RACHEL MITCHELL Attending Unavailable DAVID FOSTER Attending Unavailable JUANY LEGGETT Referring Unavailable AICHHOLZ, ADELAIDA Attending Unavailable RACHEL MITCHELL Referring Unavailable Giwellingtonitis , Andrius King Attending Unavailable Giedraitis , Andrius Vytmarta Attending Unavailable Giedraitis , Andrius Vytautargelia Attending Unavailable Giedraitis , Andrius Vytautargelia Attending [...] adverse reactions (disorder) 04-06-19 14 rash [facility] (3 sources) levETIRAcetam; Translations: [KEPPRA] Drug Allergy 07-02-19 19 [facility] (3 sources) milnacipran; Translations: [SAVELLA] Drug Allergy 03-14-20 13 [facility] (1 source) Penicillin; Translations: [PENICILLIN] Drug Allergy 01-16-20 18 [facility] (5 sources) Prochlorperazin e; Translations: [COMPAZINE] Drug Allergy 03-14-20 13 agitation [facility] (20 sources) Tetracycline; Translations: [TETRACYCLINE] Drug Allergy 04-06-19 13 Hives, Unknown [facility] (4 sources) Penicillins Drug allergy (disorder) 04-06-19 13 Unknown Reaction [facility] (20 sources) levETIRAcetam; Translations: [levetiracetam] Drug Allergy 12-13-19 22 Hallucinations , Other [facility] (20 sources) milnacipran; Translations: [milnacipran] Drug Allergy 12-13-19 22 hives, Hallucinations , Other, Unknown [facility] (20 sources) Prochlorperazin e; Translations: [prochlorperazi ne] Drug Allergy 12-13-19 22 Unknown, Other [facility] (2 sources) Penicillin G Drug Allergy as a child [facility] Other (2 sources) Tetracaine Drug Allergy Unknown [facility] Other (20 sources) Penicillins Drug Intolerance 12-13-19 22 Anaphylaxis [facility] (20 sources) Other Propensity to adverse reactions 12-13-19 22 Other [facility] (20 sources) Wound Dressing Adhesive Drug Allergy 09-20-19 23 Rash, Unknown [facility] (20 sources) Eszopiclone Drug Allergy 09-21-19 24 Hallucinations , Anaphylaxis [facility] (1 source) Penicillin Drug Allergy 03-02-[address] [facility] Repository (1 source) Penicillins Drug allergy (disorder) 03-02-[address] [facility] Repository (1 source) Tetracaine Drug Allergy 03-02-[address] [facility] Repository Medications Current Medications Medication Drug Class(es) Dates Sig (Normalized) Sig (Original) amLODIPine 10 mg oral tablet (20 sources) Dihydropyridine Calcium Channel Jim Start: 10-05-2023 End: 06-11-2024 take 1 tablet by mouth once daily amLODIPine (Norvasc) 10 MG tablet Indications: Essential (primary) hypertension (CMS/HCC) Take 1 tablet (10 mg) by mouth Daily 30 tablet 5 05/12/2024 Active Start: 11-17-2022 take 10 mg by [...] 60 mg in the evening. 0 Active azithromycin 250 mg oral tablet (1 source) Macrolide Antimicrobial Start: 06-15-19 25 azithromycin (Zithromax) 250 MG tablet Indications: URI, acute Day #1: 2 tablets, and Day 2-5: 1 tablet daily 6 tablet 06/14/2024 Active Start: 06-14-2024 azithromycin ( Zithromax) 250 MG tablet Indications: URI, acute Day #1: 2 tablets, and Day 2-5: 1 tablet daily 6 tablet 06/14/2024 Active Bariatric Multivitamins/Iron - (2 sources) Bariatric Multiv itamins/Iron - as directed Orally Active biotin 5 mg oral tablet (20 sources) biotin 5 MG tabl et Pt taking OTC (amazon) Active biotin 1 MG caps ule Biotin [...] (CITRACAL + D PO) Pt taking OTC (AMAZON) Active Calcium Citrate- Vitamin D (CITRACAL + [...] Take with meals. 60 tablet 5 05/12/2024 Active Start: 04-29-2023 End: 05-29-2023 take 1 [...] by mouth Daily 30 tablet 5 05/12/2024 Active Start: 11-17-2022 take 10 mg by mouth once daily Cetirizine Active 10 MG PO Daily November 16, 2022 11:00pm clonazePAM 0.5 mg oral tablet (20 sources) Benzodiazepine Start: 03-10-2024 End: 06-07-2024 take 1 tablet by mouth in the morning clonazePAM (KlonoPIN) 0.5 MG tablet Indications: Restless leg TAKE 1 TABLET BY MOUTH IN THE MORNING then TAKE 1 TABLET BY MOUTH BEFORE bedtime 60 tablet 1 06/07/2024 Active Start: 12-13-2023 End: 03-10-2024 take 1 [...] each nostril Daily 16 g 5 05/12/2024 Active Start: 10-05-2023 End: 02-03-2024 take 2 [...] 0 Active lacosamide 50 mg oral tablet (15 sources) Anti-epileptic Agent Start: 4 End: 5 take 1 tablet by mouth in the morning lacosamide (Vimpat) 50 MG tablet Indications: Transient alteration of awareness Take 1 tablet (50 mg) by mouth in the morning and 1 tablet (50 mg) before bedtime. Due now. 60 tablet 2 04/12/2024 Active losartan potassium 100 mg oral tablet (20 sources) Angiotensin 2 Receptor Jim Start: 4 End: 5 take 1 tablet by mouth once daily losartan (Cozaar) 100 MG tablet Indications: Essential (primary) hypertension (CMS/HCC) Take 1 tablet (100 mg) by mouth Daily 30 tablet 5 05/12/2024 Active Start: 11-17-2022 take 100 mg by mouth once lissett y Losartan Active 100 MG PO Daily November 16, 2022 11:00pm Magnesium (20 sources) Magnesium 400 MG capsule Pt taking OTC(Offermatica) Active Magnesium 400 MG capsule magnesium 0 [...] e Melatonin 12 MG tablet Indications: from Polimax Take 1 tablet by mouth at bedtime [...] s-Minerals (BARIATRIC MULTIVITAMINS/IRON PO) Pt taking OTC (Polimax) Active Multiple Vitamin s-Minerals (BARIATRIC MULTIVITAMINS/IRON PO) Bariatric Multivitamins/Iron 0 Active Ejozgpdcaroc-Abo-Lekz-Fa-Vit K (Bariatric Multivitamins) 45 mg iron- 800 mcg-120 mcg Capsule (2 sources) Start: 11-17-2022 take 1 capsule by mouth once daily Dvkcibwubwdx-Mdo-Zpcg-Fa-Vit K (Bariatric Multivitamins) 45 mg iron- 800 mcg-120 mcg Capsule Active 1 CAP PO Daily November 16, 2022 11:00pm Start: 11-17-2022 take 1 capsule by mo [facility] once daily Lhnsbytxalqb-Tfl-Llff-Fa-Vit K (Bariatri c Multivitamins) 45 mg iron- 800 mcg-120 mcg Capsule Active 1 CAP PO Daily November 17, 2022 12:00am nystatin [id number] unt/ml topical cream (20 sources) Polyene Antifungal Start: 03-07-2024 nystatin (M ycostatin) cream 03/07/2024 Active nystatin (Mycost atin) [id number] UNIT/GM powder Apply 1 application topically in [...] Take before meals. 30 capsule 5 05/12/2024 Active Start: 11-17-2022 take 20 mg by mouth once daily Omeprazole Active 20 MG PO Daily November 16, 2022 11:00pm rOPINIRole 2 mg oral tablet (20 sources) Nonergot Dopamine Agonist Start: 03-15-2024 End: 06-14-2024 take 1 tablet by mouth at bedtime rOPINIRole (Requip) 2 MG tablet Indications: Restless Leg Syndrome Take 1 tablet (2 mg) by mouth at bedtime 30 tablet 2 03/16/2024 Active Start: 10-14-2023 End: 03-15-2024 take 1 [...] by mouth Daily 30 tablet 5 05/12/2024 Active Start: 11-02-2023 End: 03-16-2024 take 2 [...] of cerebral vessels] Onset: 05-18-19 Resolved : 03-16-20 24 05-18-2023 Chronic Chronic kidney disease (10 sources) Chronic kidney disease stage 3A ; Translations: [Chronic kidney disease, stage 3a (HCC)] Onset: 05-12-19 25 05-12-2024 Chronic Conduction disorders (15 sources) EKG: right bundle branch block; Translations: [...] disorder] Onset: 11-23-19 Resolved : 03-16-2011-17-2022 Chronic Osteoarthritis (20 sources) Primary osteoarthritis, right [...] 24 10-11-2023 Chronic Other nervous system disorders (4 sources) [...] nutritional; endocrine; and metabolic disorders (14 sources) Body mass index 40+ - severely [...] Chronic Other nutritional; endocrine; and metabolic disorders (10 sources) Obesity caused by energy imbalance; Translations: [Morbid (severe) obesity due to excess calories] Onset: 03-25-2005-12-2024 Chronic Other upper respiratory disease (20 sources) Allergic rhinitis; Translations: [Allergic rhinitis, unspecified] Onset: 05-18-19 24 05-18-2023 Chronic Other upper respiratory infections (2 sources) Acute upper respiratory infection; Translations: [Acute upper respiratory infection, unspecified] Onset: 06-15-19 25 06-14-2024 Episodic Paralysis (20 sources) Right hemiparesis; Translations: [Hemiplegia, [...] Translations: [Transient alteration of awareness] 04-12-2024 Episodic Spondylosis; intervertebral disc disorders; other back [...] Translations: [LOW BACK PAIN, UNSPECIFIED] Onset: 06-30-19 Past or Other Problems Problem Classification Problem [...] Other intermediate (current) drug therapy; Translations: [OTH CORRECTION CURRENT DRUG THERAPY] Onset: 04-29-2022 Episodic Other [...] Translations: [Localized edema] Onset: 10-05-2023 10-05-2023 Episodic Residual codes; unclassified (1 source) Altered mental status, unspecified; Translations: [Altered mental status, unspecified] Onset: 03-03-2024 Episodic Respiratory failure; insufficiency; arrest (adult) (20 [...] (Bld) [#/Vol] 0.0 10*3/uL Normal 0.0-0.2 [facility] Comment on above: Result Comment: PERF ORMED BY: [place] [address] PATHOLOGIST SENIOR STATISTICIAN ADIEL AGUSTIN M.D. Performed By: #### C MG ANAMARIA, CMP #### [address] Basophils/100 WBC (Bld) 0.5 % Normal . [facility] Comment on above: Performed By: #### C MG ANAMARIA, CMP #### [place] [id number] [place] Eosinophils (Bld) [#/Vol] 0.2 10*3/uL Normal 0.0-0.45 [facility] Comment on above: Performed By: #### C BC, MG, CMP #### [address] Eosinophils/100 WBC (Bld) 2.2 % Normal . [facility] Comment on above: Performed By: #### C BC, MG, CMP #### [address] Erythrocyte distribution width (RBC) [Ratio] 14.5 % Normal 11.9-15.3 [facility] Comment on above: Performed By: #### C BC, MG, CMP #### [address] Hematocrit (Bld) [Volume fraction] 43.0 % Normal 34.0-46.4 [facility] Comment on above: Performed By: #### C BC, MG, CMP #### [address] Hemoglobin (Bld) [Mass/Vol] 14.3 g/dL Normal 11.8-15.4 [facility] Comment on above: Performed By: #### C BC, MG, CMP #### [address] Lymphocytes (Bld) [#/Vol] 1.8 10*3/uL Normal 1.00-4.8 [facility] Comment on above: Performed By: #### C BC, MG, CMP #### [address] Lymphocytes/100 WBC (Bld) 18.9 % Normal . [facility] Comment on above: Performed By: #### C BC, MG, CMP #### [address] MCH (RBC) [Entitic mass] 29.0 pg Normal 24.7-34.3 [facility] Comment on above: Performed By: #### C BC, MG, CMP #### [address] MCV (RBC) [Entitic vol] 87.0 fL Normal 80-100 [facility] Comment on above: Performed By: #### C BC MG, CMP #### [address] Mean Corpuscular HGB Conc 33.4 g/dL Normal 32.0-35.0 [facility] Comment on above: Performed By: #### C BC, MG, CMP #### [address] Monocytes (Bld) [#/Vol] 0.5 10*3/uL Normal 0.0-0.8 [facility] Comment on above: Performed By: #### C BC MG, CMP #### [address] Monocytes/100 WBC (Bld) 5.5 % Normal . [facility] Comment on above: Performed By: #### C BC MG, CMP #### [address] Neutrophils (Bld) [#/Vol] 7.0 10*3/uL Normal 1.8-7.7 [facility] Comment on above: Performed By: #### C BC, MG, CMP #### [address] Neutrophils/100 WBC (Bld) 72.9 % Normal . [facility] Comment on above: Performed By: #### C BC, MG, CMP #### [address] NRBC% 0.0 /100{WBC} Normal 0-0.5 [facility] Comment on above: Performed By: #### C BC, MG, CMP #### [address] Platelet mean volume (Bld) [Entitic vol] 8.9 fL Normal 6.3-10.7 [facility] Comment on above: Performed By: #### C BC, MG, CMP #### [address] Platelets (Bld) [#/Vol] 289 10*3/uL Normal 150-450 [facility] Comment on above: Performed By: #### C BC, MG, CMP #### [address] RBC (Bld) [#/Vol] 4.94 10*6/uL Normal 3.60-5.00 [facility] Comment on above: Performed By: #### C BC, MG, CMP #### [address] WBC (Bld) [#/Vol] 9.6 10*3/uL Normal 3.8-11.6 [facility] Comment on above: Performed By: #### C BC, MG, CMP #### [address] Comprehensive Metabolic Pane [place] 03-05-2024 Albumin [Mass/Vol] 4.4 g/dL Normal 3.5-5.7 [facility] Comment on above: Performed By: #### C BC, MG, CMP #### [address] Albumin/Globulin [Mass ratio] 1.3 {ratio} Normal [facility] Comment on above: Performed By: #### C BC, MG, CMP #### [address] ALP [Catalytic activity/Vol] 79 U/L Normal 34-104 [facility] Comment on above: Performed By: #### C BC, MG, CMP #### [address] ALT [Catalytic activity/Vol] 23 U/L Normal 7-52 [facility] Comment on above: Performed By: #### C BC, MG, CMP #### [address] Anion gap [Moles/Vol] 15.4 mmol/L High 6.0-15.0 Th e [facility] Comment on above: Performed By: #### C BC, MG, CMP #### [facility] [address] [place] [address] [place] AST [Catalytic activity/Vol] 36 U/L Normal 13-39 [facility] Comment on above: Performed By: #### C BC, MG, CMP #### [facility] [address] [place] [address] [place] Bilirubin [Mass/Vol] 0.4 mg/dL Normal 0.3-1.0 [facility] Comment on above: Performed By: #### C BC, MG, CMP #### [facility] [address] [place] [address] [place] Calcium [Mass/Vol] 9.5 mg/dL Normal 8.6-10.3 [facility] Comment on above: Performed By: #### C BC, MG, CMP #### [facility] [address] [place] [address] [place] Chloride [Moles/Vol] 106 mmol/L Normal 98-107 [facility] Comment on above: Performed By: #### C BC, MG, CMP #### [facility] [address] [place] [address] [place] CO2 [Moles/Vol] 23.1 mmol/L Normal 21.0-31.0 [facility] Comment on above: Performed By: #### C BC, MG, CMP #### [facility] [address] [place] [address] [place] Creatinine [Mass/Vol] 0.96 mg/dL Normal 0.60-1.20 [facility] Comment on above: Performed By: #### C BC, MG, CMP #### [facility] [address] [place] [address] [place] Creatinine Clr Calc Pharmacy 84.51 Normal [facility] Comment on above: Performed By: #### C BC, MG, CMP #### [facility] [address] [place] [address] [place] GFR/1.73 sq M.predicted MDRD (S/P/Bld) [Vol rate/Area] mL/min/{1.73_m2} Normal [facility] Comment on above: Performed By: #### C BC, MG, CMP #### [facility] [address] Globulin (S) [Mass/Vol] 3.3 g/dL Normal [facility] Comment on above: Performed By: #### C BC, MG, CMP #### [facility] [address] Glucose [Mass/Vol] 133 mg/dL High 70-100 [facility] Comment on above: Result Comment: [facility] Glucose Reference Range is dependent on time and content of last meal. Glucose of more than 200 mg/dL in a nonstressed, ambulatory subject supports the diagnosis of Diabetes Mellitus. ADA recommended reference range Performed By: #### C BC, MG, CMP #### [facility] [address] Potassium [Moles/Vol] 3.5 mmol/L Normal 3.5-5.1 [facility] Comment on above: Performed By: #### C BC, MG, CMP #### [facility] [address] Protein [Mass/Vol] 7.7 g/dL Normal 6.4-8.9 [facility] Comment on above: Performed By: #### C BC, MG, CMP #### [address] Sodium [Moles/Vol] 141 mmol/L Normal 136-145 [facility] Comment on above: Performed By: #### C BC, MG, CMP #### [facility] [address] Urea nitrogen [Mass/Vol] 18 mg/dL Normal 7-25 [facility] Comment on above: Performed By: #### C BC, MG, CMP #### [address] Magnesiumon 03-05-2024 Magnesium [Mass/Vol] 2.0 mg/dL Normal 1.9-2.7 [facility] Comment on above: Result Comment: PERF ORMED BY: [place] [address] PATHOLOGIST SENIOR STATISTICIAN ADIEL AGUSTIN M.D. Performed By: #### C BC, MG, CMP #### [address] Complete Blood Count Auto Di ffon 03-04-2024 Basophils (Bld) [#/Vol] 0.1 10*3/uL Normal 0.0-0.2 [facility] Comment on above: Result Comment: PERF ORMED BY: [place] [address] PATHOLOGIST SENIOR STATISTICIAN ADIEL AGUSTIN M.D. Performed By: #### C MP, MG, CBC #### [address] Basophils/100 WBC (Bld) 0.6 % Normal . [facility] Comment on above: Performed By: #### C MP, MG, CBC #### [address] Eosinophils (Bld) [#/Vol] 0.2 10*3/uL Normal 0.0-0.45 [facility] Comment on above: Performed By: #### C MP, MG, CBC #### [address] Eosinophils/100 WBC (Bld) 1.9 % Normal . [facility] Comment on above: Performed By: #### C MP, MG, CBC #### [address] Erythrocyte distribution width (RBC) [Ratio] 14.6 % Normal 11.9-15.3 [facility] Comment on above: Performed By: #### C MP, MG, CBC #### [address] Hematocrit (Bld) [Volume fraction] 43.5 % Normal 34.0-46.4 [facility] Comment on above: Performed By: #### C MP, MG, CBC #### [address] Hemoglobin (Bld) [Mass/Vol] 14.4 g/dL Normal 11.8-15.4 [facility] Comment on above: Performed By: #### C MP, MG, CBC #### [address] Lymphocytes (Bld) [#/Vol] 1.8 10*3/uL Normal 1.00-4.8 [facility] Comment on above: Performed By: #### C MP, MG, CBC #### [address] Lymphocytes/100 WBC (Bld) 18.0 % Normal . [facility] Comment on above: Performed By: #### C MP, MG, CBC #### [address] MCH (RBC) [Entitic mass] 28.8 pg Normal 24.7-34.3 [facility] Comment on above: Performed By: #### C MP, MG, CBC #### [address] MCV (RBC) [Entitic vol] 87.0 fL Normal 80-100 [facility] Comment on above: Performed By: #### C MP, MG, CBC #### [address] Mean Corpuscular HGB Conc 33.2 g/dL Normal 32.0-35.0 [facility] Comment on above: Performed By: #### C MP, MG, CBC #### [address] Monocytes (Bld) [#/Vol] 0.8 10*3/uL Normal 0.0-0.8 [facility] Comment on above: Performed By: #### C MP, MG, CBC #### [address] Monocytes/100 WBC (Bld) 8.2 % Normal . [facility] Comment on above: Performed By: #### C MP, MG, CBC #### [facility] [address] Neutrophils (Bld) [#/Vol] 7.3 10*3/uL Normal 1.8-7.7 [facility] Comment on above: Performed By: #### C MP, MG, CBC #### [facility] [address] Neutrophils/100 WBC (Bld) 71.3 % Normal . [facility] Comment on above: Performed By: #### C MP, MG, CBC #### [facility] [address] NRBC% 0.1 /100{WBC} Normal 0-0.5 [facility] Comment on above: Performed By: #### C MP, MG, CBC #### [address] Platelet mean volume (Bld) [Entitic vol] 8.8 fL Normal 6.3-10.7 [facility] Comment on above: Performed By: #### C MP, MG, CBC #### [facility] [address] [place] [address] [place] Platelets (Bld) [#/Vol] 334 10*3/uL Normal 150-450 [facility] Comment on above: Performed By: #### C MP, MG, CBC #### [address] RBC (Bld) [#/Vol] 5.01 10*6/uL High 3.60-5.00 [facility] Comment on above: Performed By: #### C MP, MG, CBC #### [facility] [address] [place] [address] [place] WBC (Bld) [#/Vol] 10.3 10*3/uL Normal 3.8-11.6 [facility] Comment on above: Performed By: #### C MP, MG, CBC #### [address] Comprehensive Metabolic Pane [place] 03-04-2024 Albumin [Mass/Vol] 4.5 g/dL Normal 3.5-5.7 [facility] Comment on above: Performed By: #### C MP, MG, CBC #### [address] Albumin/Globulin [Mass ratio] 1.4 {ratio} Normal [facility] Comment on above: Performed By: #### C MP, MG, CBC #### [facility] [address] ALP [Catalytic activity/Vol] 79 U/L Normal 34-104 [facility] Comment on above: Performed By: #### C MP, MG, CBC #### [address] ALT [Catalytic activity/Vol] 19 U/L Normal 7-52 [facility] Comment on above: Performed By: #### C MP, MG, CBC #### [address] Anion gap [Moles/Vol] 11.4 mmol/L Normal 6.0-15.0 [facility] Comment on above: Performed By: #### C MP, MG, CBC #### [address] AST [Catalytic activity/Vol] 37 U/L Normal 13-39 [facility] Comment on above: Performed By: #### C MP, MG, CBC #### [place] [address] [place] Bilirubin [Mass/Vol] 0.5 mg/dL Normal 0.3-1.0 [facility] Comment on above: Performed By: #### C MP, MG, CBC #### [facility] [address] [place] [address] [place] Calcium [Mass/Vol] 9.6 mg/dL Normal 8.6-10.3 [facility] Comment on above: Performed By: #### C MP, MG, CBC #### [place] [address] [place] Chloride [Moles/Vol] 107 mmol/L Normal 98-107 [facility] Comment on above: Performed By: #### C MP, MG, CBC #### [facility] [address] CO2 [Moles/Vol] 27.4 mmol/L Normal 21.0-31.0 [facility] Comment on above: Performed By: #### C MP, MG, CBC #### [address] Creatinine [Mass/Vol] 0.91 mg/dL Normal 0.60-1.20 [facility] Comment on above: Performed By: #### C MP, MG, CBC #### [address] Creatinine Clr Calc Pharmacy 90.12 Normal [facility] Comment on above: Performed By: #### C MP, MG, CBC #### [place] [address] [place] GFR/1.73 sq M.predicted MDRD (S/P/Bld) [Vol rate/Area] mL/min/{1.73_m2} Normal [facility] Comment on above: Performed By: #### C MP, MG, CBC #### [address] Globulin (S) [Mass/Vol] 3.2 g/dL Normal [facility] Comment on above: Performed By: #### C MP, MG, CBC #### [address] Glucose [Mass/Vol] 100 mg/dL Normal 70-100 [facility] Comment on above: Result Comment: [place] Glucose Reference Range is dependent on time and content of last meal. Glucose of more than 200 mg/dL in a nonstressed, ambulatory subject supports the diagnosis of Diabetes Mellitus. ADA recommended reference range Performed By: #### C MP, MG, CBC #### [address] Potassium [Moles/Vol] 3.8 mmol/L Normal 3.5-5.1 [facility] Comment on above: Performed By: #### C MP, MG, CBC #### [facility] [address] Protein [Mass/Vol] 7.7 g/dL Normal 6.4-8.9 [facility] Comment on above: Performed By: #### C MP, MG, CBC #### [facility] [address] Sodium [Moles/Vol] 142 mmol/L Normal 136-145 [facility] Comment on above: Performed By: #### C MP, MG, CBC #### [facility] [address] Urea nitrogen [Mass/Vol] 15 mg/dL Normal 7-25 [facility] Comment on above: Performed By: #### C MP, MG, CBC #### [address] MR head/brain wo/w conon MR head/brain wo/w con [facility] Main [place] [address] [place] [address] MRI Report Signed Patient: Michelle Be MR#: [id number] : 1960 Acct:[id number] Age/Sex: 63 / F ADM Date: 03/03/24 Loc: Room: [address] [place] [address] Type: ADM IN Attending Dr: Delta Gan MD Copies to: DO Delta Damon MD Ordering Provider: Dennsi Steel DO Date of Service: 03/04/24 MR/MR [...] Willi Guadalupe M.D.03/04/2024 2:32 PM Dictation Location: [place] [address] Transcribed By: MESHA 03/04/24 1432 Dictated By: Willi Guadalupe II, MD 03/04/24 1424 Signed By: 03/04/24 1432 Normal [facility] Magnesiumon 03-04-2024 Magnesium [Mass/Vol] 2.0 mg/dL Normal 1.9-2.7 [facility] Comment on above: Result Comment: PERF ORMED BY: [place] [address] PATHOLOGIST SENIOR STATISTICIAN ADIEL AGUSTIN M.D. Performed By: #### C MP, MG, CBC #### [facility] [address] [place] [address] Complete Blood Count Auto Di ffon 03-03-2024 Basophils (Bld) [#/Vol] 0.1 10*3/uL Normal 0.0-0.2 [facility] Comment on above: Order Comment: REY PORRAS,KAH,1607 Result Comment: PERF ORMED BY: [place] [address] PATHOLOGIST SENIOR STATISTICIAN ADIEL AGUSTIN M.D. Performed By: #### C BC, CMP #### [address] Basophils/100 WBC (Bld) 0.6 % Normal . [facility] Comment on above: Order Comment: RIN T O COME TRY,KAH,1607 Performed By: #### C BC, CMP #### [address] Eosinophils (Bld) [#/Vol] 0.1 10*3/uL Normal 0.0-0.45 [facility] Comment on above: Order Comment: RIN T O COME TRY,KAH,1607 Performed By: #### C BC, CMP #### [address] Eosinophils/100 WBC (Bld) 1.0 % Normal . [facility] Comment on above: Order Comment: RIN T O COME TRY,KAH,1607 Performed By: #### C BC, CMP #### [address] Erythrocyte distribution width (RBC) [Ratio] 14.6 % Normal 11.9-15.3 [facility] Comment on above: Order Comment: RIN T O COME TRY,KAH,1607 Performed By: #### C BC, CMP #### [address] Hematocrit (Bld) [Volume fraction] 42.9 % Normal 34.0-46.4 [facility] Comment on above: Order Comment: RIN T O COME TRY,KAH,1607 Performed By: #### C BC, CMP #### [address] Hemoglobin (Bld) [Mass/Vol] 14.5 g/dL Normal 11.8-15.4 [facility] Comment on above: Order Comment: RIN T O COME TRY,KAH,1607 Performed By: #### C BC, CMP #### [address] Lymphocytes (Bld) [#/Vol] 1.7 10*3/uL Normal 1.00-4.8 [facility] Comment on above: Order Comment: RIN T O COME TRY,KAH,1607 Performed By: #### C BC, CMP #### [address] Lymphocytes/100 WBC (Bld) 15.7 % Normal . [facility] Comment on above: Order Comment: RIN T O COME TRY,KAH,1607 Performed By: #### C BC, CMP #### [address] MCH (RBC) [Entitic mass] 29.1 pg Normal 24.7-34.3 [facility] Comment on above: Order Comment: RIN T O COME TRY,KAH,1607 Performed By: #### C BC, CMP #### [address] MCV (RBC) [Entitic vol] 85.9 fL Normal 80-100 [facility] Comment on above: Order Comment: RIN T O COME TRY,KAH,1607 Performed By: #### C BC, CMP #### [address] Mean Corpuscular HGB Conc 33.8 g/dL Normal 32.0-35.0 [facility] Comment on above: Order Comment: RIN T O COME TRY,KAH,1607 Performed By: #### C BC, CMP #### [address] Monocytes (Bld) [#/Vol] 0.9 10*3/uL High 0.0-0.8 [facility] Comment on above: Order Comment: RIN T O COME TRY,KAH,1607 Performed By: #### C BC, CMP #### [address] Monocytes/100 WBC (Bld) 8.4 % Normal . [facility] Comment on above: Order Comment: RIN T O COME TRY,KAH,1607 Performed By: #### C BC, CMP #### [address] Neutrophils (Bld) [#/Vol] 8.0 10*3/uL High 1.8-7.7 [facility] Comment on above: Order Comment: RIN T O COME TRY,KAH,1607 Performed By: #### C BC, CMP #### [address] Neutrophils/100 WBC (Bld) 74.3 % Normal . [facility] Comment on above: Order Comment: RIN T O COME TRY,KAH,1607 Performed By: #### C BC, CMP #### [address] NRBC% 0.1 /100{WBC} Normal 0-0.5 [facility] Comment on above: Order Comment: RIN T O COME TRY,KAH,1607 Performed By: #### C BC, CMP #### [address] Platelet mean volume (Bld) [Entitic vol] 8.9 fL Normal 6.3-10.7 [facility] Comment on above: Order Comment: RIN T O COME TRY,KAH,1607 Performed By: #### C BC, CMP #### [address] Platelets (Bld) [#/Vol] 291 10*3/uL Normal 150-450 [facility] Comment on above: Order Comment: RIN T O COME TRY,KAH,1607 Performed By: #### C BC, CMP #### [address] RBC (Bld) [#/Vol] 4.99 10*6/uL Normal 3.60-5.00 [facility] Comment on above: Order Comment: RIN T O COME TRY,KAH,1607 Performed By: #### C BC, CMP #### [address] WBC (Bld) [#/Vol] 10.7 10*3/uL Normal 3.8-11.6 [facility] Comment on above: Order Comment: RIN T O COME TRY,KAH,1607 Performed By: #### C BC, CMP #### [address] Comprehensive Metabolic Pane [place] 03-03-2024 Albumin [Mass/Vol] 4.6 g/dL Normal 3.5-5.7 [facility] Comment on above: Order Comment: RIN T O COME TRY,KAH,1607 Performed By: #### C BC, CMP #### [facility] [address] Albumin/Globulin [Mass ratio] 1.4 {ratio} Normal [facility] Comment on above: Order Comment: RIN T O COME TRY,KAH,1607 Performed By: #### C BC, CMP #### [facility] [address] [place] [id number] [facility] ALP [Catalytic activity/Vol] 80 U/L Normal 34-104 [facility] Comment on above: Order Comment: RIN T O COME TRY,KAH,1607 Performed By: #### C BC, CMP #### [address] ALT [Catalytic activity/Vol] 16 U/L Normal 7-52 [facility] Comment on above: Order Comment: RIN T O COME TRY,KAH,1607 Performed By: #### C BC, CMP #### [address] Anion gap [Moles/Vol] 13.6 mmol/L Normal 6.0-15.0 [facility] Comment on above: Order Comment: RIN T O COME TRY,KAH,160 Performed By: #### C BC, CMP #### [place] [address] [place] AST [Catalytic activity/Vol] 35 U/L Normal 13-39 [facility] Comment on above: Order Comment: RIN T O COME TRY,KAH,1607 Performed By: #### C BC, CMP #### [place] [address] [place] Bilirubin [Mass/Vol] 0.3 mg/dL Normal 0.3-1.0 [facility] Comment on above: Order Comment: RIN T O COME TRY,KAH,1607 Performed By: #### C BC, CMP #### [address] [place] [address] [place] Calcium [Mass/Vol] 9.3 mg/dL Normal 8.6-10.3 [facility] Comment on above: Order Comment: RIN T O COME TRY,KAH,1607 Performed By: #### C BC, CMP #### [facility] [address] Chloride [Moles/Vol] 109 mmol/L High 98-107 [facility] Comment on above: Order Comment: RIN T O COME TRY,KAH,1607 Performed By: #### C BC, CMP #### [facility] [address] CO2 [Moles/Vol] 22.4 mmol/L Normal 21.0-31.0 [facility] Comment on above: Order Comment: RIN T O COME TRY,KAH,1607 Performed By: #### C BC, CMP #### [facility] [address] [place] [id number] [facility] Creatinine [Mass/Vol] 0.93 mg/dL Normal 0.60-1.20 [facility] Comment on above: Order Comment: RIN T O COME TRY,KAH,1607 Performed By: #### C BC, CMP #### [facility] [address] Creatinine Clr Calc Pharmacy 87.94 Normal [facility] Comment on above: Order Comment: RIN T O COME TRY,KAH,1607 Result Comment: PERF ORMED BY: [place] [address] PATHOLOGIST SENIOR STATISTICIAN ADIEL AGUSTIN M.D. Performed By: #### C BC, CMP #### [address] GFR/1.73 sq M.predicted MDRD (S/P/Bld) [Vol rate/Area] mL/min/{1.73_m2} Normal [facility] Comment on above: Order Comment: RIN T O COME TRY,KAH,1607 Performed By: #### C BC, CMP #### [facility] [address] [place] [address] [place] Globulin (S) [Mass/Vol] 3.2 g/dL Normal [facility] Comment on above: Order Comment: REY Marge O JAK TRY,KAH,1606 Performed By: #### C BC, CMP #### [facility] [address] Glucose [Mass/Vol] 105 mg/dL High 70-100 [facility] Comment on above: Order Comment: REY T O COME TRY,KAH,1606 Result Comment: [facility] Glucose Reference Range is dependent on time and content of last meal. Glucose of more than 200 mg/dL in a nonstressed, ambulatory subject supports the diagnosis of Diabetes Mellitus. ADA recommended reference range Performed By: #### C BC, CMP #### [facility] [address] Potassium [Moles/Vol] 4.0 mmol/L Normal 3.5-5.1 [facility] Comment on above: Order Comment: REY T O JAK TRY,KAH,1606 Performed By: #### C BC, CMP #### [facility] [address] [place] [address] [place] Protein [Mass/Vol] 7.8 g/dL Normal 6.4-8.9 [facility] Comment on above: Order Comment: REY T O JAK TRY,KAH,1606 Performed By: #### C BC, CMP #### [facility] [address] [place] [id number] [place] Sodium [Moles/Vol] 141 mmol/L Normal 136-145 [facility] Comment on above: Order Comment: REY T O COME TRY,KAH,1606 Performed By: #### C BC, CMP #### [facility] [address] [place] [address] [place] Urea nitrogen [Mass/Vol] 15 mg/dL Normal 7-25 [facility] Comment on above: Order Comment: REY T O JAK TRY,KAH,1606 Performed By: #### C BC, CMP #### [facility] [address] [place] [address] [place] IGP,APTIMA HPV,AGE GDLNon AGE GDLN ACOG TESTING Note . [facility] Comment on above: TESTS RESULT FLAG UN ITS REF RANGE LAB Clinician Provided Cytology Information Source.............Cervix;Endocervix No. of containers..01 ThinPrep Vial Age Algo ACOG Tona... FLAG LEGEND: L-Low Normal,H-High Normal,LL-Alert Low,HH-Alert High <-Panic Low,>-Panic High,A-Abnormal,AA-Critical Abnormal Performed at: 01 =G [employer] [address] [address] Farzana Hennessy MD, HPV APTIMA Negative Negative [facility] Comment on above: This nucleic acid am plification test detects fourteen high- risk HPV types (16,18,31,33,35,39,45,51,52,56,58,59,66,68) without differentiation. Performed at: =G [employer] [place] [id number] [employer] Manager: Farzana Hennessy MD, Phone: [phone] Performed at: [facility] [address] [place], [place] [id number] [employer] Manager: Scott Sandoval MD, Phone: [phone] IGP, APTIMA HPV, RFX 16/18,45 Note . [facility] Comment on above: TESTS RESULT FLAG U NITS REF RANGE LAB DIAGNOSIS: 02 NEGATIVE FOR INTRAEPITHELIAL LESION OR MALIGNANCY. Specimen adequacy: 02 Satisfactory for evaluation. Endocervical and/or squamous metaplastic cells (endocervical component) are present. Performed by: 02 Adelaida Bustamante, English As A Second Language Instructor ([facility]) . 02 Note: Note 03 The Pap [...] High,A-Abnormal,AA-Critical Abnormal Performed at: 02 K[facility] [place] [address] [address] [place] [address] Scott Sandoval MD, 03 WB [facility] [address] [address] Farzana Hennessy MD, BROOM-ALONE CERVIX ENDOCERVIX [facility] Urinalysis macro (dipstick) panel (U)on 01-28-2024 Bilirubin, UA Negative Negative - 4(70) +++ mg/dL [facility] Blood, UA Negative Negative - 50 Kranthi/mcL [facility] Clarity, UA Clear [facility] Color, UA Dark Tania [facility] Glucose, UA Negative Negative - 1999(110) ++++ mg/dL [facility] Interpretation and review of laboratory results Abnormal [facility] Ketones, UA Negative Negative - 160(16) ++++ mg/dL [facility] Leukocytes, UA Trace Negative - 500+++ Radha/mcL [facility] Nitrite, UA Negative Negative - Positive [facility] pH, UA 5.5 5 - 9 [facility] Protein, UA Negative Negative - 1999(20) ++++ mg/dL [facility] Spec Grav, UA 1.025 1 - 1.03 [facility] Urobilinogen, UA 0.2 0.2 - 12 mg/dL [facility] MHPT CULT,URINEon 01-23-2024 Interpretation and review of laboratory results [facility] Spec[facility] Description .CLEAN C[facility] Culture ESCHERICHIA COLI >100,000 CFU/ML [facility] STREPTOCOCCI, BETA HEMOLYTIC GROUP B 10 to 50,000 CFU/ML [facility] Report Status FINAL 01/23/2024 [facility] MHPT CULT,URINE SUSCEPTIBILITY [facility] Organism ESCHERICHIA COLI [facility] Method CROW [facility] Ampicillin 16 INTERMEDIATE Intermediate [facility] Cefazolin <=4 SUSCEPTIBLE Susceptible [facility] Cefazolin sensitivit y results can be used to predict the effectiveness of oral Susceptible [facility] MHPT CULT,URINE cephalosporins (eg. Cephalexin) in uncomplicated Urinary Tract Infections due Susceptible [facility] MHPT CULT,URINE to E. coli, K. pneumoniae, and P. mirabilis Susceptible [facility] MHPT CULT,URINE Ceftriaxone <=0.25 SUSCEPTIBLE Susceptible [facility] MHPT CULT,URINE Negative Susceptible [facility] MHPT CULT,URINE Gentamicin <=1 SUSCEPTIBLE Susceptible [facility] MHPT CULT,URINE Levofloxacin <=0.12 SUSCEPTIBLE Susceptible [facility] Nitrofurantoin <=16 SUSCEPTIBLE Susceptible [facility] Piperacillin/Tazobac ta m <=4 SUSCEPTIBLE Susceptible [facility] MHPT CULT,URINE Tobramycin <=1 SUSCEPTIBLE Susceptible [facility] MHPT CULT,URINE Trimethoprim/Sulfa <=20 SUSCEPTIBLE Susceptible [facility] Original Ordering Provider: RICHA CHAVEZ [facility] ALL BASIC METABOLIC PANELon 01-05-2024 Anion gap [Moles/Vol] 11.1 mmol/L [facility] Calcium [Mass/Vol] 9.2 mg/dL 8.5 - 10. 1 mg/dL [facility] Chloride [Moles/Vol] 105 mmol/L 98 - 10 7 mmol/L [facility] CO2 [Moles/Vol] 28.0 mmol/L 21.0 - 32.0 mmol/L [facility] Creatinine [Mass/Vol] 1.08 mg/dL High 0.55 - 1.02 mg/dL [facility] GFR/1.73 sq M.predicted CKD-EPI (S/P/Bld) [Vol rate/Area] >60 60 - PINF [facility] Glucose [Mass/Vol] 92 mg/dL 74 - 106 mg/dL [facility] Interpretation and review of laboratory results Abnormal [facility] Potassium [Moles/Vol] 4.1 mmol/L 3.5 - 5.1 mmol/L [facility] Sodium [Moles/Vol] 140 mmol/L 136 - 145 mmol/L [facility] TBH EGFR-NON AF UGANDAN 51 Low 60 - PINF [facility] Urea nitrogen [Mass/Vol] 17.0 mg/dL 7.0 - 18.0 mg/dL [facility] Urea nitrogen/Creatinine [Mass ratio] 15.7 mg/mg [facility] Amphetamine Screen Ql (U)Ord ered By: Jace Graham on 03-23-2023 Amphetamines Ql (U) Negative Negative [facility] Barbiturates [Presence] in U rine by Screen methodOrdered By: Jace Graham on 03-23-2023 Barbiturates Screen Ql (U) Negative Negative [facility] Benzodiazepines Screen Ql (U )Ordered By: Jace Graham on 03-23-2023 Benzodiazepines Ql (U) Negative Negative [facility] Benzoylecgonine [Presence] i n Urine by Screen methodOrdered By: Jace Graham on 03-23-2023 Benzoylecgonine Screen Ql (U) Negative Negative [facility] Cannabinoids [Presence] in U rine by Screen methodOrdered By: Jace Graham on 03-23-2023 Cannabinoids Screen Ql (U) Negative Negative [facility] Comment on above: These are unconfirme d results and should not be used for legal purposes. Drug Cut-Off Concentration: AMPH 1000 ng/mL ELKIN 200 ng/mL ATIYA 200 ng/mL COCM 300 ng/mL OP 300 ng/mL PCP 25 ng/mL THC 20 ng/mL Opiates [Presence] in Urine by Screen methodOrdered By: Jace Graham on 03-23-2023 Opiates Screen Ql (U) Negative Negative [facility] Phencyclidine Screen Ql (U)O rdered By: Jace Graham on 03-23-2023 Phencyclidine Ql (U) Negative Negative [facility] Cholesterol [Mass/volume] in Serum or PlasmaOrdered By: Eduardo Monk on 11-18-2022 Cholesterol [Mass/Vol] 159 mg/dL 140-200 [facility] Comment on above: Chol less than 200 m g/dl low riskChol 201-239 mg/dl borderline riskChol 240 mg/dl and greater high risk Cholesterol in LDL Calc [Mas s/Vol]Ordered By: Eduardo Monk on 11-18-2022 Cholesterol in LDL [Mass/Vol] 84 mg/dL 0-[address] [facility] Comment on above: LDL ATP III CLASSIFI CATIONLDL less than 100 mg/dL OptimalLDL 100-129 mg/dL Near or above optimalLDL 130-159 mg/dL Borderline highLDL 160-189 mg/dL HighLDL greater than 189 mg/dL Very high Cholesterol in VLDL Calc [Ma ss/Vol]Ordered By: Eduardo Monk on 11-18-2022 Cholesterol in VLDL [Mass/Vol] 28 mg/dL [facility] Serum or plasma high density lipoprotein (HDL) cholesterol measurementOrdered By: Eduardo Monk on 11-18-2022 Cholesterol in HDL [Mass/Vol] 46 mg/dL 23-[address] [facility] Comment on above: HDL CHOL ATP-III CLA SSIFICATION Cardiovascular RiskHDL > or equal to 60 mg/dL LOWHDL < 40 mg/dL HIGH Serum or plasma total choles terol/high density lipoprotein (HDL) cholesterol mass ratOrdered By: Eduardo Monk on 11-18-2022 Cholesterol.total/Chol esterol in HDL [Mass ratio] 3.5 {ratio} <5.[address] [facility] Thyrotropin [Units/volume] i n Serum or PlasmaOrdered By: Eduardo Monk on 11-18-2022 TSH Qn 2.13 m[IU]/L 0.45-5.[address] [facility] Triglyceride [Mass/volume] i n Serum or PlasmaOrdered By: Eduardo Monk on 11-18-2022 Triglyceride [Mass/Vol] 144 mg/dL 0-[address] [facility] Comment on above: TRIG ATP III CLASSIF ICATIONTRIG less than 150 mg/dL NormalTRIG 150-199 mg/dL Borderline highTRIG 200-500 mg/dL High TRIG greater than 500 mg/dL Very highStandard traceable to the Center for Disease Conrtrol and Prevention (CDC) test method. Vitamin D+Metabolites [Mass/ volume] in Serum or PlasmaOrdered By: Eduardo Monk on 11-18-2022 Vitamin D+Metabolites [Mass/Vol] 50.4 ng/mL 30-[address] [facility] Comment on above: VITAMIN D STATUS 25( [place])VITAMIN D RANGE (ng/mL) Deficient <20 Insufficient 20 to <30Sufficient 30 to 100Reference: Bin MF,Lakshmi NC, Cristian SMART, et al. Evaluation,treatment, and prevention of vitamin D deficiency; an Endocrine Society clinical practice guideline. JCEM. 2010; 96(7):1911-30. CBC AUTO DIFFon 07-25-2022 BASO # 0.1 103/ul Normal 0.0-0.1 [facility] Comment on above: Performed By: #### A 1C #### [facility] [address] [address] [address] Bebeto Alvarado Basophils/100 WBC (Bld) 0.6 % Normal 0.2-2.0 [facility] Comment on above: Performed By: #### A 1C #### [facility] [address] [place] [address] Dr. Bebeto Alvarado EO # 0.2 103/ul Normal 0.0-0.7 [facility] Comment on above: Performed By: #### A 1C #### [facility] [address] [place] [address] Dr. Bebeto Alvarado Eosinophils/100 WBC (Bld) 2.3 % Normal 0.9-7.0 [facility] Comment on above: Performed By: #### A 1C #### [facility] [address] [place] [address] Dr. Bebeto Alvarado Erythrocyte distribution width (RBC) [Ratio] 13.8 % Normal 11.0-15.0 [facility] Comment on above: Performed By: #### A 1C #### [facility] [address] [place] [address] Dr. Bebeto Alvarado Hematocrit (Bld) [Volume fraction] 41.2 % Normal 36.0-48.0 [facility] Comment on above: Performed By: #### A 1C #### [facility] [address] [place] [address] Dr. Bebeto Alvarado Hemoglobin (Bld) [Mass/Vol] 13.2 g/dL Normal 12.0-16.0 [facility] Comment on above: Performed By: #### A 1C #### [facility] [address] [place] [address] Dr. Bebeto Alvarado IG # 0.03 10e3/ul Normal 0.00-0.03 [facility] Comment on above: Performed By: #### A 1C #### [facility] [address] [place] [address] Dr. Bebeto Alvarado IG % 0.4 % Normal 0.0-0.5 [facility] Comment on above: Performed By: #### A 1C #### [facility] [address] [place] [address] Dr. Bebeto Alvarado LYMPH # 2.1 103/ul Normal 1.2-3.8 [facility] Comment on above: Performed By: #### A 1C #### [facility] [address] [place] [address] Dr. Bebeto Alvarado Lymphocytes/100 WBC (Bld) 25.9 % Normal 20.5-60.0 [facility] Comment on above: Performed By: #### A 1C #### [facility] [address] [place] [address] Dr. Bebeto Alvarado MANUAL DIFF REQ NO Normal [facility] Comment on above: Performed By: #### A 1C #### [facility] [address] [place] [address] Dr. Bebeto Alvarado MCH (RBC) [Entitic mass] 28.0 pg Normal 26.7-34.0 [facility] Comment on above: Performed By: #### A 1C #### [facility] [address] [place] [address] Dr. Bebeto Alvarado MCHC (RBC) [Mass/Vol] 32.0 g/dL Normal 29.9-35.2 [facility] Comment on above: Performed By: #### A 1C #### [facility] [address] [place] [address] Dr. Bebeto Alvarado MCV (RBC) [Entitic vol] 87.5 fL Normal 81.0-99.0 [facility] Comment on above: Performed By: #### A 1C #### [facility] [address] [place] [address] Dr. Bebeto Alvarado MONO # 0.5 103/ul Normal 0.3-0.8 [facility] Comment on above: Performed By: #### A 1C #### [facility] [address] [place] [address] Dr. Bebeto Alvarado Monocytes/100 WBC (Bld) 6.6 % Normal 1.7-12.0 [facility] Comment on above: Performed By: #### A 1C #### [facility] [address] [place] [address] Dr. Bebeto Alvarado NEUT # 5.1 103/ul Normal 1.4-6.5 [facility] Comment on above: Performed By: #### A 1C #### [facility] [address] [place] [address] Dr. Bebeto Alvarado Neutrophils/100 WBC (Bld) 64.2 % Normal 43.0-75.0 [facility] Comment on above: Performed By: #### A 1C #### [facility] [address] [place] [address] Dr. Bebeto Alvarado Platelet mean volume (Bld) [Entitic vol] 11.2 fL Normal 9.5-13.5 [facility] Comment on above: Performed By: #### A 1C #### [facility] [address] [place] [address] Dr. Bebeto Alvarado PLT 252 103/ul Normal 150-450 [facility] Comment on above: Performed By: #### A 1C #### [facility] [address] [place] [address] Dr. Bebeto Alvarado RBC 4.71 106/ul Normal 4.20-5.40 [facility] Comment on above: Performed By: #### A 1C #### [facility] [address] [place] [address] Dr. Bebeto Alvarado WBC 8.0 103/ul Normal 4.0-11.0 [facility] Comment on above: Performed By: #### A 1C #### [facility] [address] [place] [address] Dr. Bebeto Alvarado GLYCOHEMOGLOBIN A1Con 2022 ADA RECOMMENDATION SEE BELOW Normal [facility] Comment on above: Result Comment: ADA RECOMMENDED LIMIT 4.0 - 6.0 ADA THERAPEUTIC TARGET < 7.0 ACTION SUGGESTED > 7.0 Performed By: #### A 1C #### [facility] [address] [place] [address] Dr. Bebeto Alvarado Glucose [Mass/Vol] 114 mg/dL Normal [facility] Comment on above: Performed By: #### A 1C #### [facility] [address] [place] [address] Dr. Bebeto Alvarado HbA1c (Bld) [Mass fraction] 5.6 % Normal 4.5-6.2 [facility] Comment on above: Performed By: #### A 1C #### [facility] [address] [address] [address] Bebeto Alvarado IRONon 07-25-2022 Iron [Mass/Vol] 60.0 ug/dL Normal 50.0-170.0 [facility] Comment on above: Performed By: #### V ITB12, IRON #### [facility] [address] [address] [address] Bebeto Alvarado LIPID PROFILEon 07-25-2022 CHOL-HDL RATIO NORM SEE BELOW Normal [facility] Comment on above: Result Comment: 3.3 - 4.4 LOW RISK 4.4 - 7.1 AVERAGE RISK 7.1 - 11.0 MODERATE RISK >11.0 HIGH RISK Performed By: #### C MP, LIPID #### [facility] [address] [place] [address] Dr. Bebeto Alvarado Cholesterol [Mass/Vol] 144 mg/dL Normal <=200 [facility] Comment on above: Performed By: #### C MP, LIPID #### [facility] [address] [place] [address] Dr. Bebeto Alvarado Cholesterol in HDL [Mass/Vol] 39 mg/dL Critically low 40-60 [facility] Comment on above: Performed By: #### C MP, LIPID #### [facility] [address] [place] [address] Dr. Bebeto Alvarado Cholesterol in LDL [Mass/Vol] 74.6 mg/dL Normal [facility] Comment on above: Performed By: #### C MP, LIPID #### [facility] [address] [place] [address] Dr. Bebeto Alvarado Cholesterol.total/Chol esterol in HDL [Mass ratio] 3.7 {ratio} Normal [facility] Comment on above: Performed By: #### C MP, LIPID #### [facility] [address] [place] [address] Dr. Bebeto Alvarado HDL NORMAL > or = 60 mg/dl - LO W CARDIOVASCULAR RISK <40 mg/dl - HIGH CARDIOVASCULAR RISK Normal [facility] Comment on above: Performed By: #### C MP, LIPID #### [facility] [address] [address] [address] Bebeto Alvarado LDL CALC NORMAL SEE BELOW Normal [facility] Comment on above: Result Comment: <100 mg/dl OPTIMAL 100 - 129 mg/dl NEAR OR ABOVE OPTIMAL 130 - 159 mg/dl BORDERLINE HIGH 160 - 189 mg/dl HIGH >190 mg/dl VERY HIGH Performed By: #### C MP, LIPID #### [facility] [address] [place] [address] Dr. Bebeto Alvarado Triglyceride [Mass/Vol] 152 mg/dL Critically high <=150 [facility] Comment on above: Performed By: #### C MP, LIPID #### [facility] [address] [place] [address] Dr. Bebeto Alvarado VLDL CALC 30.4 mg/dL Normal [facility] Comment on above: Performed By: #### C MP, LIPID #### [facility] [address] [place] [address] Dr. Bebeto Alvarado PROF 14(COMP METB)on 023 Albumin [Mass/Vol] 3.7 g/dL Normal 3.4-5.0 [facility] Comment on above: Performed By: #### C MP, LIPID #### [facility] [address] [place] [address] Dr. Bebeto Alvarado Albumin/Globulin [Mass ratio] 0.9 {ratio} Normal [facility] Comment on above: Performed By: #### C MP, LIPID #### [facility] [address] [place] [address] Dr. Bebeto Alvarado ALP [Catalytic activity/Vol] 90 U/L Normal 46-116 [facility] Comment on above: Performed By: #### C MP, LIPID #### [facility] [address] [place] [address] Dr. Bebeto Alvarado ALT [Catalytic activity/Vol] 38 U/L Normal 14-59 [facility] Comment on above: Performed By: #### C MP, LIPID #### [facility] [address] [place] [address] Dr. Bebeto Alvarado Anion gap [Moles/Vol] 12.1 mmol/L Normal [facility] Comment on above: Performed By: #### C MP, LIPID #### [facility] [address] [address] [address] Bebeto Alvarado AST [Catalytic activity/Vol] 26 U/L Normal 15-37 [facility] Comment on above: Performed By: #### C MP, LIPID #### [facility] [address] [address] [address] Bebeto Alvarado Bilirubin [Mass/Vol] 0.3 mg/dL Normal 0.2-1.0 [facility] Comment on above: Performed By: #### C MP, LIPID #### [facility] [address] [place] [address] Dr. Bebeto Alvarado Calcium [Mass/Vol] 9.3 mg/dL Normal 8.5-10.1 [facility] Comment on above: Performed By: #### C MP, LIPID #### [facility] [address] [place] [address] Dr. Bebeto Alvarado Chloride [Moles/Vol] 107 mmol/L Normal 98-107 [facility] Comment on above: Performed By: #### C MP, LIPID #### [facility] [address] [place] [address] Dr. Bebeto Alvarado CO2 [Moles/Vol] 27.9 mmol/L Normal 21.0-32.0 [facility] Comment on above: Performed By: #### C MP, LIPID #### [facility] [address] [place] [address] Dr. Bebeto Alvarado Creatinine [Mass/Vol] 0.95 mg/dL Normal 0.55-1.02 [facility] Comment on above: Performed By: #### C MP, LIPID #### [facility] [address] [place] [address] Dr. Bebeto Alvarado EGFR-AF UGANDAN >60 Normal >=60 [facility] Comment on above: Performed By: #### C MP, LIPID #### [facility] [address] [place] [address] Dr. Bebeto Alvarado EGFR-NON AF UGANDAN 60 mL/min/1.73m2 Normal >=60 [facility] Comment on above: Performed By: #### C MP, LIPID #### [facility] [address] [place] [address] Dr. Bebeto Alvarado Globulin (S) [Mass/Vol] 3.9 g/dL Normal [facility] Comment on above: Performed By: #### C MP, LIPID #### [facility] [address] [place] [address] Dr. Bebeto Alvarado Glucose [Mass/Vol] 108 mg/dL Critically high 74-106 [facility] Comment on above: Performed By: #### C MP, LIPID #### [facility] [address] [place] [address] Dr. Bebeto Alvarado Potassium [Moles/Vol] 4.0 mmol/L Normal 3.5-5.1 [facility] Comment on above: Performed By: #### C MP, LIPID #### [facility] [address] [place] [address] Dr. Bebeto Alvarado Protein [Mass/Vol] 7.6 g/dL Normal 6.4-8.2 [facility] Comment on above: Performed By: #### C MP, LIPID #### [facility] [address] [place] [address] Dr. Bebeto Alvarado Sodium [Moles/Vol] 143 mmol/L Normal 136-145 [facility] Comment on above: Performed By: #### C MP, LIPID #### [facility] [address] [place] [address] Dr. Bebeto Alvarado Urea nitrogen [Mass/Vol] 15.0 mg/dL Normal 7.0-18.0 [facility] Comment on above: Performed By: #### C MP, LIPID #### [facility] [address] [place] [address] Dr. Bebeto Alvarado Urea nitrogen/Creatinine [Mass ratio] 15.8 mg/mg Normal [facility] Comment on above: Performed By: #### C MP, LIPID #### [facility] [address] [place] [address] Dr. Bebeto Alvarado UA RANDOM W/MICROSCOPICon BACTERIA NONE SEEN Normal NONE SEEN [facility] Comment on above: Performed By: #### A 1C #### [facility] [address] [place] [address] Dr. Bebeto Alvarado Bilirubin Ql (U) Negative Normal NEGATIVE [facility] Comment on above: Performed By: #### A 1C #### [facility] [address] [place] [address] Dr. Bebeto Alvarado CAST NONE SEEN Normal NONE SEEN [facility] Comment on above: Performed By: #### A 1C #### [facility] [address] [place] [address] Dr. Bebeto Alvarado Clarity (U) CLEAR Normal CLEAR [facility] Comment on above: Performed By: #### A 1C #### [facility] [address] [place] [address] Dr. Bebeto Alvarado Color (U) YELLOW Normal YELLOW [facility] Comment on above: Performed By: #### A 1C #### [facility] [address] [place] [address] Dr. Bebeto Alvarado Crystals LM Nom (Urine sed) NONE SEEN Normal NONE SEEN [facility] Comment on above: Performed By: #### A 1C #### [facility] [address] [place] [address] Dr. Bebeto Alvarado Epithelial cells LM Ql (Urine sed) NONE SEEN Normal NONE SEEN /RARE [facility] Comment on above: Performed By: #### A 1C #### [facility] [address] [place] [address] Dr. Bebeto Alvarado Glucose Ql (U) Negative Normal NEGATIVE [facility] Comment on above: Performed By: #### A 1C #### [facility] [address] [place] [address] Dr. Bebeto Alvarado Hemoglobin Ql (U) Negative Normal NEGATIVE [facility] Comment on above: Performed By: #### A 1C #### [facility] [address] [place] [address] Dr. Bebeto Alvarado Ketones Ql (U) Negative Normal NEGATIVE [facility] Comment on above: Performed By: #### A 1C #### [facility] [address] [place] [address] Dr. Bebeto Alvarado LEUKOCYTES Negative Normal NEGATIVE [facility] Comment on above: Performed By: #### A 1C #### [facility] [address] [place] [address] Dr. Bebeto Alvarado MUCOUS NONE SEEN Normal NONE SEEN [facility] Comment on above: Performed By: #### A 1C #### [facility] [address] [place] [address] Dr. Bebeto Alvarado Nitrite Ql (U) Negative Normal NEGATIVE [facility] Comment on above: Performed By: #### A 1C #### [facility] [address] [place] [address] Dr. Bebeto Alvaardo pH (U) 5.5 [pH] Normal 5-9 [facility] Comment on above: Performed By: #### A 1C #### [facility] [address] [place] [address] Dr. Bebeto Alvarado RBC NONE SEEN Abnormal 0-2 [facility] Comment on above: Performed By: #### A 1C #### [facility] [address] [place] [address] Dr. Bebeto Alvarado SPEC GRAVITY 1.030 Abnormal 1.005-<=1.02 5 [facility] Comment on above: Performed By: #### A 1C #### [facility] [address] [place] [address] Dr. Bebeto Alvarado UA PROTEIN Negative Normal NEGATIVE/ TRACE [facility] Comment on above: Performed By: #### A 1C #### [facility] [address] [place] [address] Dr. Bebeto Alvarado Urobilinogen Qn (U) 0.2 {Katerin'U}/dL Normal 0.2 - 1. 0 [facility] Comment on above: Performed By: #### A 1C #### [facility] [address] [place] [address] Dr. Bebeto Alvarado WBC NONE SEEN Normal NONE SEEN [facility] Comment on above: Performed By: #### A 1C #### [facility] [address] [place] [address] Dr. Bebeto Alvarado VITAMIN B12on 07-25-2022 Cobalamin (Vitamin B12) [Mass/Vol] 1684.0 pg/mL Critically high 193.0-986.0 [facility] Comment on above: Performed By: #### V ITB12, IRON #### [facility] [address] [address] [address] Bebeto Alvarado PROF CHEM 8 (BAS METB)on Anion gap [Moles/Vol] 12.2 mmol/L Normal [facility] Comment on above: Performed By: #### B MP #### [facility] [address] [address] [address] Bebeto Alvarado Calcium [Mass/Vol] 8.9 mg/dL Normal 8.5-10.1 [facility] Comment on above: Performed By: #### B MP #### [facility] [address] [address] [address] Bebeto Alvarado Chloride [Moles/Vol] 105 mmol/L Normal 98-107 [facility] Comment on above: Performed By: #### B MP #### [facility] [address] [address] [address] Bebeto Alvarado CO2 [Moles/Vol] 29.6 mmol/L Normal 21.0-32.0 [facility] Comment on above: Performed By: #### B MP #### [facility] [address] [address] [address] Bebeto Alvarado Creatinine [Mass/Vol] 0.95 mg/dL Normal 0.55-1.02 [facility] Comment on above: Performed By: #### B MP #### [facility] [address] [address] [address] Bebeto Alvarado EGFR-AF UGANDAN >60 Normal >=60 [facility] Comment on above: Performed By: #### B MP #### [facility] [address] [address] [address] Bebeto Alvarado EGFR-NON AF UGANDAN 60 mL/min/1.73m2 Normal >=60 [facility] Comment on above: Performed By: #### B MP #### [facility] [address] [address] [address] Bebeto Alvarado Glucose [Mass/Vol] 101 mg/dL Normal 74-106 [facility] Comment on above: Performed By: #### B MP #### [facility] [address] [address] [address] Bebeto Alvarado Potassium [Moles/Vol] 3.8 mmol/L Normal 3.5-5.1 [facility] Comment on above: Performed By: #### B MP #### [facility] [address] [address] [address] Bebeto Alvarado Sodium [Moles/Vol] 143 mmol/L Normal 136-145 [facility] Comment on above: Performed By: #### B MP #### [facility] [address] [place] [address] Dr. Bebeto Alvarado Urea nitrogen [Mass/Vol] 16.0 mg/dL Normal 7.0-18.0 [facility] Comment on above: Performed By: #### B MP #### [facility] [address] [place] [address] Dr. Bebeto Alvarado Urea nitrogen/Creatinine [Mass ratio] 16.8 mg/mg Normal [facility] Comment on above: Performed By: #### B MP #### [facility] [address] [place] [address] Dr. Bebeto Alvarado CBC AUTO DIFFon 11-21-2021 BASO # 0.1 103/ul Normal 0.0-0.1 [facility] Comment on above: Performed By: #### A 1C #### [facility] [address] [place] [address] Dr. Bebeto Alvarado Basophils/100 WBC (Bld) 1.0 % Normal 0.2-2.0 [facility] Comment on above: Performed By: #### A 1C #### [facility] [address] [place] [address] Dr. Bebeto Alvarado EO # 0.2 103/ul Normal 0.0-0.7 [facility] Comment on above: Performed By: #### A 1C #### [facility] [address] [place] [address] Dr. Bebeto Alvarado Eosinophils/100 WBC (Bld) 3.3 % Normal 0.9-7.0 [facility] Comment on above: Performed By: #### A 1C #### [facility] [address] [place] [address] Dr. Bebeto Alvarado Erythrocyte distribution width (RBC) [Ratio] 13.8 % Normal 11.0-15.0 [facility] Comment on above: Performed By: #### A 1C #### [facility] [address] [place] [address] Dr. Bebeto Alvarado Hematocrit (Bld) [Volume fraction] 38.8 % Normal 36.0-48.0 [facility] Comment on above: Performed By: #### A 1C #### [facility] [address] [place] [address] Dr. Bebeto Alvarado Hemoglobin (Bld) [Mass/Vol] 12.5 g/dL Normal 12.0-16.0 [facility] Comment on above: Performed By: #### A 1C #### [facility] [address] [place] [address] Dr. Bebeto Alvarado IG # 0.02 10e3/ul Normal 0.00-0.03 [facility] Comment on above: Performed By: #### A 1C #### [facility] [address] [place] [address] Dr. Bebeto Alvarado IG % 0.3 % Normal 0.0-0.5 [facility] Comment on above: Performed By: #### A 1C #### [facility] [address] [place] [address] Dr. Bebeto Alvarado LYMPH # 1.9 103/ul Normal 1.2-3.8 [facility] Comment on above: Performed By: #### A 1C #### [facility] [address] [place] [address] Dr. Bebeto Alvarado Lymphocytes/100 WBC (Bld) 29.6 % Normal 20.5-60.0 [facility] Comment on above: Performed By: #### A 1C #### [facility] [address] [place] [address] Dr. Bebeto Alvarado MANUAL DIFF REQ NO Normal [facility] Comment on above: Performed By: #### A 1C #### [facility] [facility] [address] [place] [address] Dr. Bebeto Alvarado MCH (RBC) [Entitic mass] 28.0 pg Normal 26.7-34.0 [facility] Comment on above: Performed By: #### A 1C #### [facility] [address] [place] [address] Dr. Bebeto Alvarado MCHC (RBC) [Mass/Vol] 32.2 g/dL Normal 29.9-35.2 [facility] Comment on above: Performed By: #### A 1C #### [facility] [address] [place] [address] Dr. Bebeto Alvarado MCV (RBC) [Entitic vol] 86.8 fL Normal 81.0-99.0 [facility] Comment on above: Performed By: #### A 1C #### [facility] [address] [place] [address] Dr. Bebeto Alvarado MONO # 0.4 103/ul Normal 0.3-0.8 [facility] Comment on above: Performed By: #### A 1C #### [facility] [address] [place] [address] Dr. Bebeto Alvarado Monocytes/100 WBC (Bld) 5.7 % Normal 1.7-12.0 [facility] Comment on above: Performed By: #### A 1C #### [facility] [address] [place] [address] Dr. Bebeto Alvarado NEUT # 3.8 103/ul Normal 1.4-6.5 [facility] Comment on above: Performed By: #### A 1C #### [facility] [address] [place] [address] Dr. Bebeto Alvarado Neutrophils/100 WBC (Bld) 60.1 % Normal 43.0-75.0 [facility] Comment on above: Performed By: #### A 1C #### [facility] [address] [place] [address] Dr. Bebeto Alvarado Platelet mean volume (Bld) [Entitic vol] 11.0 fL Normal 9.5-13.5 [facility] Comment on above: Performed By: #### A 1C #### [facility] [address] [place] [address] Dr. Bebeto Alvarado PLT 264 103/ul Normal 150-450 [facility] Comment on above: Performed By: #### A 1C #### [facility] [address] [address] [address] Bebeto Alvarado RBC 4.47 106/ul Normal 4.20-5.40 [facility] Comment on above: Performed By: #### A 1C #### [facility] [address] [place] [address] Dr. Bebeto Alvarado WBC 6.3 103/ul Normal 4.0-11.0 [facility] Comment on above: Performed By: #### A 1C #### [facility] [address] [place] [address] Dr. Bebeto Alvarado GLYCOHEMOGLOBIN A1Con 2021 ADA RECOMMENDATION SEE BELOW Normal [facility] Comment on above: Result Comment: ADA RECOMMENDED LIMIT 4.0 - 6.0 ADA THERAPEUTIC TARGET < 7.0 ACTION SUGGESTED > 7.0 Performed By: #### A 1C #### [facility] [address] [place] [address] Dr. Bebeto Alvarado Glucose [Mass/Vol] 105 mg/dL Normal [facility] Comment on above: Performed By: #### A 1C #### [facility] [address] [place] [address] Dr. Bebeto Alvarado HbA1c (Bld) [Mass fraction] 5.3 % Normal 4.5-6.2 [facility] Comment on above: Performed By: #### A 1C #### [facility] [address] [place] [address] Dr. Bebeto Alvarado IRONon 11-21-2021 Iron [Mass/Vol] 59.0 ug/dL Normal 50.0-170.0 [facility] Comment on above: Performed By: #### A 1C #### [facility] [address] [address] [address] Bebeto Alvarado LIPID PROFILEon 11-21-2021 CHOL-HDL RATIO NORM SEE BELOW Normal [facility] Comment on above: Result Comment: 3.3 - 4.4 LOW RISK 4.4 - 7.1 AVERAGE RISK 7.1 - 11.0 MODERATE RISK >11.0 HIGH RISK Performed By: #### C MP, LIPID #### [facility] [address] [address] [address] Bebeto Alvarado Cholesterol [Mass/Vol] 139 mg/dL Normal <=200 [facility] Comment on above: Performed By: #### C MP, LIPID #### [facility] [address] [place] [address] Dr. Bebeto Alvarado Cholesterol in HDL [Mass/Vol] 35 mg/dL Critically low 40-60 [facility] Comment on above: Performed By: #### C MP, LIPID #### [facility] [address] [place] [address] Dr. Bebeto Alvarado Cholesterol in LDL [Mass/Vol] 69.6 mg/dL Normal [facility] Comment on above: Performed By: #### C MP, LIPID #### [facility] [address] [place] [address] Dr. Bebeto Alvarado Cholesterol.total/Chol esterol in HDL [Mass ratio] 4.0 {ratio} Normal [facility] Comment on above: Performed By: #### C MP, LIPID #### [facility] [address] [place] [address] Dr. Bebeto Alvarado HDL NORMAL > or = 60 mg/dl - LO W CARDIOVASCULAR RISK <40 mg/dl - HIGH CARDIOVASCULAR RISK Normal [facility] Comment on above: Performed By: #### C MP, LIPID #### [facility] [address] [place], [place] [id number] Dr. Bebeto Alvarado LDL CALC NORMAL SEE BELOW Normal [facility] Comment on above: Result Comment: <100 mg/dl OPTIMAL 100 - 129 mg/dl NEAR OR ABOVE OPTIMAL 130 - 159 mg/dl BORDERLINE HIGH 160 - 189 mg/dl HIGH >190 mg/dl VERY HIGH Performed By: #### C MP, LIPID #### [facility] [address] [place] [address] Dr. Bebeto Alvarado Triglyceride [Mass/Vol] 172 mg/dL Critically high <=150 [facility] Comment on above: Performed By: #### C MP, LIPID #### [facility] [address] [address] [address] Bebeto Alvarado VLDL CALC 34.4 mg/dL Normal [facility] Comment on above: Performed By: #### C MP, LIPID #### [facility] [address] [place] [address] Dr. Bebeto Alvarado PROF 14(COMP METB)on 022 Albumin [Mass/Vol] 3.8 g/dL Normal 3.4-5.0 [facility] Comment on above: Performed By: #### C MP, LIPID #### [facility] [address] [place] [address] Dr. Bebeto Alvarado Albumin/Globulin [Mass ratio] 1.1 {ratio} Normal [facility] Comment on above: Performed By: #### C MP, LIPID #### [facility] [address] [place] [address] Dr. Bebeto Alvarado ALP [Catalytic activity/Vol] 96 U/L Normal 46-116 [facility] Comment on above: Performed By: #### C MP, LIPID #### [facility] [address] [place] [address] Dr. Bebeto Alvarado ALT [Catalytic activity/Vol] 25 U/L Normal 14-59 [facility] Comment on above: Performed By: #### C MP, LIPID #### [facility] [address] [place] [address] Dr. Bebeto Alvarado Anion gap [Moles/Vol] 11.8 mmol/L Normal [facility] Comment on above: Performed By: #### C MP, LIPID #### [facility] [address] [place] [address] Dr. Bebeto Alvarado AST [Catalytic activity/Vol] 20 U/L Normal 15-37 [facility] Comment on above: Performed By: #### C MP, LIPID #### [facility] [address] [address] [address] Bebeto Alvarado Bilirubin [Mass/Vol] 0.4 mg/dL Normal 0.2-1.0 [facility] Comment on above: Performed By: #### C MP, LIPID #### [facility] [address] [address] [address] Bebeto Alvarado Calcium [Mass/Vol] 8.8 mg/dL Normal 8.5-10.1 [facility] Comment on above: Performed By: #### C MP, LIPID #### [facility] [address] [address] [address] Bebeto Alvarado Chloride [Moles/Vol] 106 mmol/L Normal 98-107 [facility] Comment on above: Performed By: #### C MP, LIPID #### [facility] [address] [place] [address] Dr. Bebeto Alvarado CO2 [Moles/Vol] 27.0 mmol/L Normal 21.0-32.0 [facility] Comment on above: Performed By: #### C MP, LIPID #### [facility] [address] [place] [address] Dr. Bebeto Alvarado Creatinine [Mass/Vol] 0.97 mg/dL Normal 0.55-1.02 [facility] Comment on above: Performed By: #### C MP, LIPID #### [facility] [address] [place] [address] Dr. Bebeto Alvarado EGFR-AF UGANDAN >60 Normal >=60 [facility] Comment on above: Performed By: #### C MP, LIPID #### [facility] [address] [place] [address] Dr. Bebeto Alvarado EGFR-NON AF UGANDAN 59 mL/min/1.73m2 Critically low >=60 [facility] Comment on above: Performed By: #### C MP, LIPID #### [facility] [address] [place] [address] Dr. Bebeto Alvarado Globulin (S) [Mass/Vol] 3.4 g/dL Normal [facility] Comment on above: Performed By: #### C MP, LIPID #### [facility] [address] [address] [address] Bebeto Alvarado Glucose [Mass/Vol] 103 mg/dL Normal 74-106 [facility] Comment on above: Performed By: #### C MP, LIPID #### [facility] [address] [address] [address] Bebeto Alvarado Potassium [Moles/Vol] 3.8 mmol/L Normal 3.5-5.1 [facility] Comment on above: Performed By: #### C MP, LIPID #### [facility] [address] [address] [address] Bebeto Alvarado Protein [Mass/Vol] 7.2 g/dL Normal 6.4-8.2 [facility] Comment on above: Performed By: #### C MP, LIPID #### [facility] [address] [place] [address] Dr. Bebeto Alvarado Sodium [Moles/Vol] 141 mmol/L Normal 136-145 [facility] Comment on above: Performed By: #### C MP, LIPID #### [facility] [address] [place] [address] Dr. Bebeto Alvarado Urea nitrogen [Mass/Vol] 11.0 mg/dL Normal 7.0-18.0 [facility] Comment on above: Performed By: #### C MP, LIPID #### [facility] [address] [place] [address] Dr. Bebeto Alvarado Urea nitrogen/Creatinine [Mass ratio] 11.3 mg/mg Normal [facility] Comment on above: Performed By: #### C MP, LIPID #### [facility] [address] [place] [address] Dr. Bebeto Alvarado URIC ACID SERUMon 11-21-2021 Urate [Mass/Vol] 7.3 mg/dL Critically high 2.6-6.0 [facility] Comment on above: Performed By: #### A 1C #### [facility] [address] [place] [address] Dr. Bebeto Alvarado VITAMIN B12on 11-21-2021 Cobalamin (Vitamin B12) [Mass/Vol] 2123.0 pg/mL Critically high 193.0-986.0 [facility] Comment on above: Performed By: #### A 1C #### [facility] [address] [address] [address] Bebeto Alvarado Physician Referralon 022 Physician Referral [id number] Normal [facility] KNEE RIGHT 1 OR 2 VWSon KNEE RIGHT 1 OR 2 VWS [facility] Department of Radiology [address] [place] [address] ======== Patient Name: MICHELLE BE : 1960 Sex: F Age: Race: White Pt. Location: 84 Patient Status: O Ordered Date: 02/08/2019 10:40:00 AM Completed Date: 02/08/2019 10:38 AM Requesting Provider: AHSAN BINGHAM Attending Provider: AHSAN BINGHAM Report Copy To: Signs & Symptoms: S82.001A Unsp fracture of right patella, init for clos fx I10 History: [place] Comments: , , , Ordering Provider - [...] Electronically signed by:Debra Del Cid. Transcribed by: [email or web address], User Resident: Electronically Signed by: DEBRA DEL CID @ 02/08/2019 11:16 AM Normal [facility] Comment on above: Order Comment: , [...] [facility] KNEE RIGHT 1 OR 2 [facility] Department of Radiology [address] [place] [id number] ======== Patient Name: MICHELLE BE : 1960 Sex: F Age: Race: White Pt. Location: Patient Status: Ordered Date: 12/07/2018 10:20:00 AM Completed Date: 12/07/2018 10:20 AM Requesting Provider: AHSAN BINGHAM Attending Provider: Report Copy To: Signs & Symptoms: S82.001A Unsp fracture of right patella, init for clos fx I10 History: [place] Comments: , , , Ordering Provider - [...] complications. Electronically signed by:Tomasz Stoll. Transcribed by: [email or web address], User Resident: Electronically Signed by: TOMASZ STOLL @ 12/07/2018 11:14 AM Normal [facility] Comment on above: Order Comment: , Mabel ws (X-RAY, KNEE): Radiologic Protocol , Weight Bearing?: N , With or Without Brace/Cast/Collar: With , Views (X-RAY, KNEE): Radiologic Protocol , Weight Bearing?: N , With or Without Brace/Cast/Collar: With , , , Ordering Provider - AHSAN BINGHAM PA-C , KNEE RIGHT 1 OR 2 VWSon KNEE RIGHT 1 OR 2 VWS [facility] Department of Radiology [address] [place] [id number] ======== Patient Name: MICHELLE BE : 1960 Sex: F Age: Race: White Pt. 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 Transcribed by: [email or web address], User Resident: Electronically Signed by: ANUP ELLISON @ 10/06/2018 02:48 PM Normal [facility] Comment on above: Order Comment: , [...] Center 08-05 KNEE RIGHT 1 OR 2 [facility] Department of Radiology [address] [place] [id number] ======== Patient Name: MICHELLE BE : [...] effusion Electronically signed by:Anup Ellison. Transcribed by: [email or web address], User Resident: Electronically Signed by: ANUP ELLISON @ 08/26/2018 04:56 PM Normal [facility] Comment on above: Order Comment: , [...] 07-06 KNEE RIGHT 1 OR 2 S [facility] Department of Radiology [address] [place] [id number] ======== Patient Name: MICHELLE BE : 1960 Sex: F Age: Race: White Pt. Location: 84 Patient Status: Ordered Date: 07/29/2018 2:10:00 PM Completed Date: 07/29/2018 02:12 PM Requesting Provider: AHSAN BINGHAM Attending Provider: Report Copy To: Signs & Symptoms: S82.001A Unsp fracture of right patella, init for clos fx I10 History: [place] Comments: , , , Ordering Provider - [...] compartment Electronically signed by:Anup Ellison. Transcribed by: [email or web address], User Resident: Electronically Signed by: ANUP ELLISON @ 07/29/2018 03:41 PM Normal [facility] Comment on above: Order Comment: , Vie ws (X-RAY, KNEE): Radiologic Protocol , Weight Bearing?: N , With or Without Brace/Cast/Collar: With , Views (X-RAY, KNEE): Radiologic Protocol , Weight Bearing?: N , With or Without Brace/Cast/Collar: With , , , Ordering Provider - AHSAN BINGHAM PA-C , KNEE RIGHT 3 [facility] 9 KNEE RIGHT 3 [facility] Department of Radiology [address] [place] [id number] ======== Patient Name: MICHELLE BE : 1960 Sex: F Age: Race: White Pt. Location: Patient Status: Ordered Date: 07/15/2018 8:45:00 AM Completed Date: 07/15/2018 08:47 AM Requesting Provider: AHSAN BINGHAM Attending Provider: Report Copy To: Signs & Symptoms: S82.001A Unsp fracture of right patella, init for clos fx I10 History: [place] Comments: , , , Ordering Provider - AHSAN BINGHAM PA-C , Exam: KNEE RIGHT 3 [facility] ======== KNEE RIGHT 3 VWS 07/15/2018 [...] knee Electronically signed by:Anup Ellison. Transcribed by: [email or web address], User Resident: Electronically Signed by: ANUP ELLISON @ 07/15/2018 03:31 PM Normal [facility] Comment on above: Order Comment: , Rossie ws (X-RAY, KNEE): Radiologic Protocol , Weight Bearing?: N , With or Without Brace/Cast/Collar: With , Views (X-RAY, KNEE): Radiologic Protocol , Weight Bearing?: N , With or Without Brace/Cast/Collar: With , , , Ordering Provider - AHSAN BINGHAM PA-C , Operative Reporton 9 Operative Report MR#: [id number] [facility] Pt. Name: Michelle Be Room #: [...] Duarte MD Date Trans: 07/03/2018 04:28 Monse/terry [id number] Normal [facility] *ANAEROBIC CULTUREon 019 *ANAEROBIC CULTURE Clinical Report: (D) Specimen/Source: SWAB/RT KNEE Collected: 07/02/2018 13:53 Status: Final Last Updated: 07/07/2018 08:02 CULT RES (Final) No Anaerobes Isolated 5 Days Normal [facility] Comment on above: Performed By: #### 3 0312 #### [facility] [address] *WOUND CULTUREon 07-02-2018 *WOUND CULTURE Clinical Report: (D) Specimen/Source: WOUND/INTRAOP SPEC Collected: 07/02/2018 13:53 Status: Final Last Updated: 07/07/2018 10:13 (1) #1 RT KNEE GRAM (Final) Rare Polys No Bacteria Seen CULT RES (Final) No Growth Day 5 Normal [facility] Comment on above: Order Comment: #1 RT KNEE Performed By: #### 3 0343 #### [facility] [address] [place] [address], [facility] KNEE RIGHT 1 OR 2 Sri 06-05 KNEE RIGHT 1 OR 2 [facility] Department of Radiology [address] [place] [address] ======== Patient Name: MICHELLE BE [...] PATELLA Exam: KNEE RIGHT 1 OR 2 [facility] ======== KNEE RIGHT 1 OR 2 [facility] 07/02/2018 2:00 PM EDT SIGNS AND SYMPTOMS: ORIF VS PERCUTANEOUS FIXATION RIGHT PATELLA TECHNOLOGIST COMMENTS: 1.58 mins of fluoro used by Dr Escalante LT knee screw fixation revision QUESTION FOR THE RADIOLOGIST: ORIF VS PERCUTANEOUS FIXATION RIGHT PATELLA PROTOCOL: AP(PA) and Lateral views were obtained. COMPARISON: None FINDINGS: Soft tissues: Bones: Joints: IMPRESSION: Documentation Electronically signed by:Debra Del Cid. Transcribed by: [email or web address], User Resident: Electronically Signed by: DEBRA DEL CID @ 07/02/2018 02:03 PM Normal [facility] Comment on above: Order Comment: ORIF VS PERCUTANEOUS FIXATION RIGHT PATELLA POC GLUCOSE LABon 07-02-2018 Glucose [Mass/Vol] 108 mg/dL High 70-100 [facility] Comment on above: Performed By: #### 8 [id number] #### [facility] [address] [place] [address], [facility] APTTon 06-30-2018 aPTT Coag (Bld) [Time] 30.6 s Normal 25.0-35.0 [facility] Comment on above: Result Comment: [...] THIS PURPOSE. Performed By: #### 5 6101, [id number] #### [facility] [address] [place] [address], [facility] BASIC METABOLIC PANELon 06-05 Calcium [Mass/Vol] 9.7 mg/dL Normal 8.6-10.3 [facility] Comment on above: Performed By: #### 0 0071 #### [facility] [address] [place] [address], [facility] Chloride [Moles/Vol] 102 mmol/L Normal 98-107 [facility] Comment on above: Performed By: #### 0 0071 #### [facility] [address] [place] [address], [facility] CO2 [Moles/Vol] 28 mmol/L Normal 21-31 [facility] Comment on above: Performed By: #### 0 0071 #### [facility] [address] [place] [address], [facility] Creatinine [Mass/Vol] 1.20 mg/dL Normal 0.60-1.20 [facility] Comment on above: Performed By: #### 0 0071 #### [facility] [address] [place] [address], [facility] GFR/1.73 sq M predicted among blacks MDRD (S/P/Bld) [Vol rate/Area] 56 ml/min/1.73sq m Abnormal >60 [facility] Comment on above: Performed By: #### 0 0071 #### [facility] [address] [place] [address], [facility] GFR/1.73 sq M predicted among non-blacks MDRD (S/P/Bld) [Vol rate/Area] 47 ml/min/1.73sq m Abnormal >60 [facility] Comment on above: Performed By: #### 0 0071 #### [facility] [address] [place] [address], [facility] Glucose [Mass/Vol] 97 mg/dL Normal 70-100 [facility] Comment on above: Performed By: #### 0 0071 #### [facility] [address] [facility]. [address] Potassium [Moles/Vol] 4.1 mmol/L Normal 3.5-5.1 [facility] Comment on above: Performed By: #### 0 0071 #### [facility] [address] [place] [address], [facility] Sodium [Moles/Vol] 137 mmol/L Normal 136-145 [facility] Comment on above: Performed By: #### 0 0071 #### [facility] [address] [place] [address], [facility] Urea nitrogen [Mass/Vol] 19 mg/dL Normal 7-25 [facility] Comment on above: Performed By: #### 0 0071 #### [facility] [address] [facility] [address], [facility] CBC W/DIFFon 06-30-2018 ABS BASOPHILS 0.1 10*3/uL Normal 0.0-0.2 [facility] Comment on above: Performed By: #### 5 0103 #### [facility] [address] [facility] [address], [facility] ABS IMM GRANS 0.0 10*3/uL Normal 0.0-0.2 [facility] Comment on above: Performed By: #### 5 0103 #### [facility] [address] [place] [address], [facility] ABS NEUTROPHILS 6.4 10*3/uL Normal 1.6-7.6 [facility] Comment on above: Performed By: #### 5 0103 #### [facility] [address] [place] [address], [facility] Basophils/100 WBC (Bld) 0.7 % Normal 0.0-1.0 [facility] Comment on above: Performed By: #### 5 0103 #### [facility] [address] [place] [address], [facility] Eosinophils (Bld) [#/Vol] 0.2 10*3/uL Normal 0.0-0.5 [facility] Comment on above: Performed By: #### 5 0103 #### [facility] [address] [place] [address], [facility] Eosinophils/100 WBC (Bld) 1.5 % Normal 0.0-6.0 [facility] Comment on above: Performed By: #### 5 0103 #### [facility] [address] [place] [address], [facility] Erythrocyte distribution width (RBC) [Ratio] 14.4 % Normal 11.5-15.0 [facility] Comment on above: Performed By: #### 5 0103 #### [facility] [address] [facility] [place] [address], [facility] Hematocrit (Bld) [Volume fraction] 40.6 % Normal 36.0-45.0 [facility] Comment on above: Performed By: #### 5 0103 #### [facility] [address] [place] [address], [facility] Hemoglobin (Bld) [Mass/Vol] 13.3 g/dL Normal 12.0-15.0 [facility] Comment on above: Performed By: #### 5 0103 #### [facility] [address] [facility] [place] [address], [facility] IMMATURE GRANS 0.4 % Normal 0.0-1.0 [facility] Comment on above: Performed By: #### 5 0103 #### [facility] [address] [facility] [address], [facility] Lymphocytes (Bld) [#/Vol] 2.6 10*3/uL Normal 1.2-4.0 [facility] Comment on above: Performed By: #### 5 0103 #### [facility] [address] [place] [address], [facility] Lymphocytes/100 WBC (Bld) 26.5 % Normal 20.0-45.0 [facility] Comment on above: Performed By: #### 5 0103 #### [facility] [address] [place] [address], [facility] MCH (RBC) [Entitic mass] 27.4 pg Normal 27.0-33.0 [facility] Comment on above: Performed By: #### [id number] #### [facility] [address] [place] [address], [facility] MCHC (RBC) [Mass/Vol] 32.8 g/dL Normal 32.0-35.0 [facility] Comment on above: Performed By: #### 5 [id number] #### [facility] [address] [place] [address], [facility] MCV (RBC) [Entitic vol] 83.5 fL Normal 82.0-98.0 [facility] Comment on above: Performed By: #### 5 [id number] #### [facility] [address] [place] [address], [facility] Monocytes (Bld) [#/Vol] 0.5 10*3/uL Normal 0.1-1.0 [facility] Comment on above: Performed By: #### 5 [id number] #### [facility] [address] MONOS 5.0 % Normal 5.0-12.0 [facility] Comment on above: Performed By: #### 5 [id number] #### [facility] [address] Neutrophils/100 WBC (Bld) 65.9 % Normal 40.0-72.0 [facility] Comment on above: Performed By: #### 5 [id number] #### [address] Nucleated RBC/100 WBC (Bld) [Ratio] 0 % Normal 0-0 [facility] Comment on above: Performed By: #### 5 [id number] #### [address] PLAT CNT 290 10*3/uL Normal 150-400 [facility] Comment on above: Performed By: #### 5 [id number] #### [address] RBC (Bld) [#/Vol] 4.86 10*6/uL Normal 3.80-5.00 [facility] Comment on above: Performed By: #### 5 0103 #### [place] [address], [facility] WBC (Bld) [#/Vol] 9.68 10*3/uL Normal 4.00-10.60 [facility] Comment on above: Performed By: #### 5 [id number] #### [address] KNEE RIGHT 1 OR 2 VWSon 06-05 KNEE RIGHT 1 OR 2 VWS [facility] Department of Radiology [address] [place] [id number] ======== Patient Name: MICHELLE BE : 1960 Sex: F Age: Race: White Pt. 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 Transcribed by: [email or web address], User Resident: Electronically Signed by: DEBRA DEL CID @ 06/30/2018 11:52 AM Normal [facility] Comment on above: Order Comment: , Mabel ws (X-RAY, KNEE): Radiologic Protocol , Weight Bearing?: N , With or Without Brace/Cast/Collar: With , Views (X-RAY, KNEE): Radiologic Protocol , Weight Bearing?: N , With or Without Brace/Cast/Collar: With , , , Ordering Provider - AHSAN BINGHAM PA-C , PROTHROMBIN TIMEon 9 INR Coag (PPP) [Relative time] 0.98 {INR} Normal 0.91-1.16 [facility] Comment on above: Result Comment: [facility] P RECOMMENDED INR FOR WARFARIN THERAPY [...] CHEST 1995;108:231S-246S. Performed By: #### 5 [id number], [id number] #### [facility] [address] [facility] [address], [facility] PT Coag (PPP) [Time] 13.0 s Normal 12.3-14.8 [facility] Comment on above: Result Comment: ALL RESULTS MUST BE INTERPRETED WITH RESPECT TO BLOOD DRAWING ARTIFACT OR DILUTION ERROR OF ANTICOAGULANT AT THE TIME OF SAMPLING. Performed By: #### 5 [id number], [id number] #### [facility] [address] [place] [address], [facility] KNEE RIGHT 3 Son 9 KNEE RIGHT 3 [facility] Department of Radiology [address] [place] [id number] ======== Patient Name: MICHELLE BE : [...] Bearing?: Y , , , Ordering Mariela REDDY-C , PROTOCOL: AP,Lateral and Tangential views were [...] effusion Electronically signed by:Anup Ellison. Transcribed by: [email or web address], User Resident: Electronically Signed by: ANUP ELLISON @ 06/15/2018 03:50 PM Normal [facility] Comment on above: Order Comment: , Isaiah ght Bearing?: Y , Weight Bearing?: Y , , , Ordering Provider - AMPARO REDDY-Keiry , Vital Signs Date Time Vital Sign Value Performing Clinician Facility 05-24-2024 08:19-0500 Body height 162.6 cm [employer] Work Phone: [facility] 05-24-2024 08:19-0500 Body mass index (BMI) [Ratio] 50.29 kg/m2 [employer] Work Phone: [facility] 05-24-2024 08:19-0500 Body weight 132.9 kg [employer] Work Phone: [facility] 05-24-2024 08:19-0500 Diastolic blood pressure 72 mm[Hg] Juany Lowe PA Work Phone: [facility] 05-24-2024 08:19-0500 Heart rate 62 /min Juany Lowe PA Work Phone: [facility] 05-24-2024 08:19-0500 Respiratory rate 16 /min Juany Lowe PA Work Phone: [facility] 05-24-2024 08:19-0500 SaO2% (BldA) [Mass fraction] 100 % Juany Lowe PA Work Phone: [facility] 05-24-2024 08:19-0500 Systolic blood pressure 110 mm[Hg] Juany Lowe PA Work Phone: [facility] 05-12-2024 10:04-0500 Body height 162.6 cm Adelaida Aichholz SALES ENABLEMENT ANALYST Work Phone: [facility] 05-12-2024 10:04-0500 Body mass index (BMI) [Ratio] 49.16 kg/m2 Adelaida Aichholz SALES ENABLEMENT ANALYST Work Phone: [facility] 05-12-2024 10:04-0500 Body temperature 98.49 [degF] Adelaida Aichholz SALES ENABLEMENT ANALYST Work Phone: [facility] 05-12-2024 10:04-0500 Body weight 129.91 kg Adelaida Aichholz SALES ENABLEMENT ANALYST Work Phone: [facility] 05-12-2024 10:04-0500 Diastolic blood pressure 78 mm[Hg] Adelaida Aichholz SALES ENABLEMENT ANALYST Work Phone: [facility] 05-12-2024 10:04-0500 Heart rate 80 /min Adelaida Aichholz SALES ENABLEMENT ANALYST Work Phone: [facility] 05-12-2024 10:04-0500 Respiratory rate 20 /min Adeladia Aichholz SALES ENABLEMENT ANALYST Work Phone: [facility] 05-12-2024 10:04-0500 SaO2% (BldA) [Mass fraction] 98 % Adelaida Merryholz SALES ENABLEMENT ANALYST Work Phone: [facility] 05-12-2024 10:04-0500 Systolic blood pressure 118 mm[Hg] Adelaida Aichholz SALES ENABLEMENT ANALYST Work Phone: [facility] 03-16-2024 09:53-0500 Body height 162.6 cm Adelaida Aichholz SALES ENABLEMENT ANALYST Work Phone: [facility] 03-16-2024 09:53-0500 Body mass index (BMI) [Ratio] 48.41 kg/m2 Adelaida Aichholz SALES ENABLEMENT ANALYST Work Phone: [facility] 03-16-2024 09:53-0500 Body temperature 98.01 [degF] Adelaida Yinghholz SALES ENABLEMENT ANALYST Work Phone: [facility] 03-16-2024 09:53-0500 Body weight 127.91 kg Adelaida Aichholz SALES ENABLEMENT ANALYST Work Phone: [facility] 03-16-2024 09:53-0500 Diastolic blood pressure 80 mm[Hg] Adelaida Aichholz SALES ENABLEMENT ANALYST Work Phone: [facility] 03-16-2024 09:53-0500 Heart rate 79 /min Adelaida Aichholz SALES ENABLEMENT ANALYST Work Phone: [facility] 03-16-2024 09:53-0500 Respiratory rate 18 /min Adelaida Aichholz SALES ENABLEMENT ANALYST Work Phone: [facility] 03-16-2024 09:53-0500 SaO2% (BldA) [Mass fraction] 98 % Adelaida Aichholz SALES ENABLEMENT ANALYST Work Phone: [facility] 03-16-2024 09:53-0500 Systolic blood pressure 120 mm[Hg] Adelaida Aichholz SALES ENABLEMENT ANALYST Work Phone: [facility] 03-10-2024 15:20-0500 Body height 162.6 cm Rachel REDDY Work Phone: [facility] 03-10-2024 15:20-0500 Body mass index (BMI) [Ratio] 48.41 kg/m2 Rachel Stephen PA Work Phone: [facility] 03-10-2024 15:20-0500 Body weight 127.91 kg Rachelgeorgette Mitchell PA Work Phone: [facility] 03-10-2024 15:20-0500 Diastolic blood pressure 68 mm[Hg] Rachel Stephen PA Work Phone: [facility] 03-10-2024 15:20-0500 Heart rate 74 /min Rachel Hill PA Work Phone: [facility] 03-10-2024 15:20-0500 Respiratory rate 16 /min Rachelgeorgette Mitchell PA Work Phone: [facility] 03-10-2024 15:20-0500 SaO2% (BldA) [Mass fraction] 98 % Rachel Stephen PA Work Phone: [facility] 03-10-2024 15:20-0500 Systolic blood pressure 102 mm[Hg] Rachel Stephen PA Work Phone: [facility] 03-01-2024 12:48-0500 Body height 162.6 cm Juany Lowe PA Work Phone: [facility] 03-01-2024 12:48-0500 Body mass index (BMI) [Ratio] 48.92 kg/m2 Juany Lowe PA Work Phone: [facility] 03-01-2024 12:48-0500 Body weight 129.28 kg Juany Lowe PA Work Phone: [facility] 03-01-2024 12:48-0500 Diastolic blood pressure 88 mm[Hg] Juany Lowe PA Work Phone: [facility] 03-01-2024 12:48-0500 Systolic blood pressure 140 mm[Hg] Juany Lowe PA Work Phone: [facility] 02-16-2024 11:18-0500 Body height 162.6 cm Adelaida Carrion NP Work Phone: [facility] 02-16-2024 11:18-0500 Body mass index (BMI) [Ratio] 50.77 kg/m2 Adelaidamonse Sousaholz SALES ENABLEMENT ANALYST Work Phone: [facility] 02-16-2024 11:18-0500 Body temperature 98.49 [degF] Adelaida Merryholz SALES ENABLEMENT ANALYST Work Phone: [facility] 02-16-2024 11:18-0500 Body weight 134.17 kg Adelaida Yinghholz SALES ENABLEMENT ANALYST Work Phone: [facility] 02-16-2024 11:18-0500 Diastolic blood pressure 82 mm[Hg] Adelaida Aichholz SALES ENABLEMENT ANALYST Work Phone: [facility] 02-16-2024 11:18-0500 Heart rate 69 /min Adelaida Merryholz SALES ENABLEMENT ANALYST Work Phone: [facility] 02-16-2024 11:18-0500 Respiratory rate 20 /min Adelaida Merryholz SALES ENABLEMENT ANALYST Work Phone: [facility] 02-16-2024 11:18-0500 SaO2% (BldA) [Mass fraction] 98 % Adelaida Yinghholz SALES ENABLEMENT ANALYST Work Phone: [facility] 02-16-2024 11:18-0500 Systolic blood pressure 122 mm[Hg] Adelaida Merryholz SALES ENABLEMENT ANALYST Work Phone: [facility] 01-28-2024 13:46-0400 Body height 162.6 cm Adelaida Merryholz SALES ENABLEMENT ANALYST Work Phone: [facility] 01-28-2024 13:46-0400 Body mass index (BMI) [Ratio] 48.99 kg/m2 Adelaida Yinghholz SALES ENABLEMENT ANALYST Work Phone: [facility] 01-28-2024 13:46-0400 Body temperature 98.71 [degF] Adelaida Merryholz SALES ENABLEMENT ANALYST Work Phone: [facility] 01-28-2024 13:46-0400 Body weight 129.46 kg Adelaida Yinghholz SALES ENABLEMENT ANALYST Work Phone: [facility] 01-28-2024 13:46-0400 Diastolic blood pressure 78 mm[Hg] Adelaida Aichholz SALES ENABLEMENT ANALYST Work Phone: [facility] 01-28-2024 13:46-0400 Heart rate 81 /min Adelaida Aichholz SALES ENABLEMENT ANALYST Work Phone: [facility] 01-28-2024 13:46-0400 Respiratory rate 18 /min Adelaida Aichholz SALES ENABLEMENT ANALYST Work Phone: [facility] 01-28-2024 13:46-0400 SaO2% (BldA) [Mass fraction] 99 % Adelaida Aichholz SALES ENABLEMENT ANALYST Work Phone: [facility] 01-28-2024 13:46-0400 Systolic blood pressure 110 mm[Hg] Adelaida Aichholz SALES ENABLEMENT ANALYST Work Phone: [facility] 01-04-2024 09:39-0400 Body height 162.6 cm Adelaida Aichholz SALES ENABLEMENT ANALYST Work Phone: [facility] 01-04-2024 09:39-0400 Body mass index (BMI) [Ratio] 48.75 kg/m2 Adelaida Aichholz SALES ENABLEMENT ANALYST Work Phone: [facility] 01-04-2024 09:39-0400 Body temperature 97.81 [degF] Adelaida Aichholz SALES ENABLEMENT ANALYST Work Phone: [facility] 01-04-2024 09:39-0400 Body weight 128.82 kg Adelaida Aichholz SALES ENABLEMENT ANALYST Work Phone: [facility] 01-04-2024 09:39-0400 Diastolic blood pressure 78 mm[Hg] Adelaida Aichholz SALES ENABLEMENT ANALYST Work Phone: [facility] 01-04-2024 09:39-0400 Heart rate 67 /min Adelaida Aichholz SALES ENABLEMENT ANALYST Work Phone: [facility] 01-04-2024 09:39-0400 Respiratory rate 19 /min Adelaida Aichholz SALES ENABLEMENT ANALYST Work Phone: [facility] 01-04-2024 09:39-0400 SaO2% (BldA) [Mass fraction] 99 % Adelaida Sousabob SALES ENABLEMENT ANALYST Work Phone: [facility] 01-04-2024 09:39-0400 Systolic blood pressure 116 mm[Hg] Adelaida Sousabob SALES ENABLEMENT ANALYST Work Phone: [facility] 12-09-2023 10:14-0400 Body height 162.6 cm Juany Gillmor SALES ENABLEMENT ANALYST Work Phone: [facility] 12-09-2023 10:14-0400 Body mass index (BMI) [Ratio] 48.92 kg/m2 Juany Samanthamor SALES ENABLEMENT ANALYST Work Phone: [facility] 12-09-2023 10:14-0400 Body weight 129.28 kg Juany Samanthamor SALES ENABLEMENT ANALYST Work Phone: [facility] 12-09-2023 10:14-0400 Diastolic blood pressure 78 mm[Hg] Juany Gillmor SALES ENABLEMENT ANALYST Work Phone: [facility] 12-09-2023 10:14-0400 SaO2% (BldA) [Mass fraction] 97 % Juany Samanthamor SALES ENABLEMENT ANALYST Work Phone: [facility] 12-09-2023 10:14-0400 Systolic blood pressure 122 mm[Hg] Juany Samanthamor SALES ENABLEMENT ANALYST Work Phone: [facility] 12-08-2023 15:24-0400 Body height 162.6 cm Sonam Clevelandnagel SALES ENABLEMENT ANALYST Work Phone: [facility] 12-08-2023 15:24-0400 Body mass index (BMI) [Ratio] 48.92 kg/m2 Sonam Windnagel SALES ENABLEMENT ANALYST Work Phone: [facility] 12-08-2023 15:24-0400 Body weight 129.28 kg Sonam Windnagel SALES ENABLEMENT ANALYST Work Phone: [facility] 12-08-2023 15:24-0400 Diastolic blood pressure 77 mm[Hg] Sonam Windnagel SALES ENABLEMENT ANALYST Work Phone: [facility] 12-08-2023 15:24-0400 Heart rate 72 /min Sonam Brown SALES ENABLEMENT ANALYST Work Phone: [facility] 12-08-2023 15:24-0400 Systolic blood pressure 134 mm[Hg] Sonam Brown SALES ENABLEMENT ANALYST Work Phone: [facility] 05-18-2023 16:30-0500 Body height 162.6 cm Adelaida Kelsiez SALES ENABLEMENT ANALYST Work Phone: [facility] 05-18-2023 16:30-0500 Body mass index (BMI) [Ratio] 47.89 kg/m2 Adelaida Merryholz SALES ENABLEMENT ANALYST Work Phone: [facility] 05-18-2023 16:30-0500 Body temperature 97.3 [degF] Adelaida Kelsiez SALES ENABLEMENT ANALYST Work Phone: [facility] 05-18-2023 16:30-0500 Body weight 126.55 kg Adelaida Yinghholz SALES ENABLEMENT ANALYST Work Phone: [facility] 05-18-2023 16:30-0500 Diastolic blood pressure 80 mm[Hg] Adelaida Yinghholz SALES ENABLEMENT ANALYST Work Phone: [facility] 05-18-2023 16:30-0500 Heart rate 76 /min Adelaida Yinghholz SALES ENABLEMENT ANALYST Work Phone: [facility] 05-18-2023 16:30-0500 Respiratory rate 19 /min Adelaida Yinghholz SALES ENABLEMENT ANALYST Work Phone: [facility] 05-18-2023 16:30-0500 SaO2% (BldA) [Mass fraction] 97 % Adelaida Yinghholz SALES ENABLEMENT ANALYST Work Phone: [facility] 05-18-2023 16:30-0500 Systolic blood pressure 134 mm[Hg] Adelaida Aichholz SALES ENABLEMENT ANALYST Work Phone: [facility] 03-23-2023 12:10-0500 Diastolic blood pressure 98 mm[Hg] Adelaida Aichholz Work Phone: [facility] 03-23-2023 12:10-0500 Heart rate 76 /min Adelaida Sousaholz Work Phone: [facility] 03-23-2023 12:10-0500 Respiratory rate 18 /min Adelaida Sousaholz Work Phone: [facility] 03-23-2023 12:10-0500 SaO2% (BldA) [Mass fraction] 99 % Adelaida Sousaholnena Work Phone: [facility] 03-23-2023 12:10-0500 Systolic blood pressure 162 mm[Hg] Adelaida Sousaholz Work Phone: [facility] 03-23-2023 10:53-0500 Body height 162.56 cm Adelaida Carrion Work Phone: [facility] 03-23-2023 10:53-0500 Body weight 125.64 kg Adelaida Carrion Work Phone: [facility] 12-19-2022 14:55-0400 Body height 162.56 cm Rosemary Marita Other [employer] Other 12-19-2022 14:55-0400 Body mass index (BMI) [Ratio] 47.85 kg/m2 Rosemary Kirkland Other [employer] Other 12-19-2022 14:55-0400 Body temperature 97.8 [degF] Rosemary Kirkland Other [employer] Other 12-19-2022 14:55-0400 Body weight 126.46 kg Rosemary Kirkland Other [employer] Other 12-19-2022 14:55-0400 Respiratory rate 20 /min Rosemary Kirkland Other [facility] [employer] Other 12-19-2022 14:55-0400 SaO2% (BldA) [Mass fraction] 95 % Rosemary Marita Other [employer] [facility] [employer] Other 11-20-2022 13:12-0400 Body temperature 97.7 [degF] Adelaida Aichholz Work Phone: [facility] 11-20-2022 13:12-0400 SaO2% (BldA) [Mass fraction] 96 % Adelaida Aichholz Work Phone: [facility] 11-20-2022 07:44-0400 Diastolic blood pressure 90 mm[Hg] Adelaida Aichholz Work Phone: [facility] 11-20-2022 07:44-0400 Heart rate 103 /min Adelaida Aichholz Work Phone: [facility] 11-20-2022 07:44-0400 Systolic blood pressure 152 mm[Hg] Adelaida Aichholz Work Phone: [facility] 11-19-2022 20:00-0400 Respiratory rate 18 /min Adelaida Aichholz Work Phone: [facility] 11-18-2022 15:18-0400 Body height 162.56 cm Adelaida Aichholz Work Phone: [facility] 11-17-2022 09:00-0400 Body weight 122.92 kg Adelaida Aichholz Work Phone: [facility] Encounters Encounter Date Encounter Type Care Provider Facility Start: 06-16-2024 ambulatory Eduardo Monk Facility:[facility] Start: 06-14-2024 End: 06-14-2024 Refill Adelaida Aicbostonz [employer] Work Phone: [facility] Comment on above: URI, acute (Primary Dx) Start: 06-07-2024 End: 06-07-2024 Refill Juany Leggett PA Work Phone: [facility] Comment on above: Restless leg Start: 05-24-2024 End: 05-24-2024 Bamboo flowsheet Juany Lowe PA Work Phone: [facility] Start: 05-24-2024 End: 05-24-2024 Bamboo flowsheet Juany Lowe PA Work Phone: [facility] Start: 05-24-2024 End: 05-24-2024 Office outpatient visit 25 minutes Juany Leggett PA Work Phone: [facility] Comment on above: Cerebrovascular acci dent (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 (CMS/HCC) (Primary Dx); OSMANY (obstructive sleep apnea); Metabolic encephalopathy; Restless leg; Degeneration of intervertebral disc of lumbar region with discogenic back pain and lower extremity pain Start: 05-24-2024 End: 05-24-2024 ambulatory JUANY LOWGeorgette Not Available Start: 05-23-2024 End: 05-23-2024 ambulatory Syeda Mancuso MD Facility: [facility] Start: 05-12-2024 End: 05-12-2024 Bamboo flowsheet Adelaida Carrion NP Work Phone: [facility] Start: 05-12-2024 End: 05-12-2024 Bamboo flowsheet Adelaida Carrion SALES ENABLEMENT ANALYST Work Phone: [facility] Start: 05-12-2024 End: 05-12-2024 Office outpatient visit 25 minutes Adelaida Carrion NP Work Phone: [facility] Comment on [...] [facility] Start: 04-12-2024 End: 04-12-2024 Refill Juany REDDY Work Phone: [facility] Comment on above: Transient alteration of awareness (Primary Dx); Restless leg Start: 04-07-2024 End: 04-07-2024 Patient encounter procedure David Foster PhD Work Phone: [facility] Comment on above: Metabolic encephalop athy (Primary Dx); Memory change; Altered mental status, unspecified altered mental status type; Concentration deficit; PTSD (post-traumatic stress disorder) (CMS/HCC); Bipolar affective disorder, remission status unspecified (CMS/HCC); Family history of dementia; 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); OSMANY (obstructive sleep apnea) Start: 04-07-2024 End: 04-07-2024 ambulatory ADELAIDA CARRION Not Available Start: 03-22-2024 End: 03-22-2024 ambulatory RACHEL MITCHELL Not Available Start: 03-16-2024 End: 03-16-2024 Bamboo flowsheet Adelaida Carrion SALES ENABLEMENT ANALYST Work Phone: [facility] Start: 03-16-2024 End: 03-16-2024 Bamboo flowsheet Adelaida Carrion SALES ENABLEMENT ANALYST Work Phone: [facility] Start: 03-16-2024 End: 03-16-2024 Office outpatient visit 25 minutes Adelaida Carrion SALES ENABLEMENT ANALYST Work Phone: [facility] Comment on above: Metabolic encephalop athy (Primary Dx); OSMANY (obstructive sleep apnea); Morbid obesity (CMS/HCC); Bilateral lower extremity edema; Tobacco dependence; Bipolar disorder with severe depression (CMS/HCC); At risk for polypharmacy; Anxiety; Primary hypertension (CMS/HCC); Right bundle branch block (RBBB) determined by electrocardiography Start: 03-16-2024 End: 03-16-2024 ambulatory ADELAIDA CARRION Not Available Start: 03-15-2024 End: 03-16-2024 Telephone encounter David Noramn MA [facility] Start: 03-14-2024 End: 03-14-2024 [employer] Book[employer] David Foster PhD Work Phone: [facility] Start: 03-14-2024 End: 03-14-2024 [employer] Systems[employer]abela Foster PhD Work Phone: [facility] Start: 03-14-2024 End: 03-14-2024 ambulatory DAVID FOSTER Not Available Start: 03-14-2024 End: 03-14-2024 Patient encounter procedure David Foster PhD Work Phone: [facility] Comment on above: Altered mental statu s, unspecified altered mental status type (Primary Dx); Memory change; Concentration deficit; 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 (CMS/HCC); PTSD (post-traumatic stress disorder) (CMS/HCC); Bipolar affective disorder, remission status unspecified (CMS/HCC); Family history of dementia Start: 03-10-2024 End: 03-10-2024 Office outpatient visit 25 minutes Rachel REDDY Work Phone: [facility] Comment on above: Altered mental statu s, unspecified altered mental status type (Primary Dx); Restless leg; 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CMS/HCC); OSMANY (obstructive sleep apnea) Start: 03-10-2024 End: 03-10-2024 ambulatory RACHEL MITCHELL Not Available Start: 03-03-2024 End: 03-07-2024 Evaluation and management of inpatient Adelaida Carrion Facility:[facility] Start: 03-02-2024 End: 03-04-2024 Clinisync Result Encounter Generic External Data Provider [facility] External [facility] Unsolicited Start: 03-02-2024 End: 03-04-2024 Clinisync Result Encounter Generic External Data Provider [facility] External Department Unsolicited Start: 03-02-2024 End: 03-02-2024 Refill Adelaida Carrion SALES ENABLEMENT ANALYST Work Phone: [facility] Comment on above: Yeast infection of [...] Start: 02-28-2024 End: 02-29-2024 Refill Adelaida Carrion SALES ENABLEMENT ANALYST Work Phone: [facility] Comment on above: Allergic rhinitis, u nspecified Start: 02-24-2024 End: 02-24-2024 Refill Adelaida Carrion SALES ENABLEMENT ANALYST Work Phone: [facility] Comment on above: Essential (primary) hypertension (CMS/HCC); Allergic rhinitis, unspecified Start: 02-16-2024 End: 02-16-2024 Bamboo flowsheet Adelaida Carrion NP Work Phone: [facility] Start: 02-16-2024 End: 02-23-2024 Clinisync Result Encounter Adelaida Carrion NP Work Phone: [facility] Unsolicited Start: 02-16-2024 End: 02-23-2024 [employer]inis[employer] Result Encounter Adelaida Carrion NP Work Phone: [facility] Unsolicited Start: 02-16-2024 End: 02-16-2024 Patient encounter procedure Adelaida Aichholz SALES ENABLEMENT ANALYST Work Phone: [facility] Start: 02-16-2024 End: 02-16-2024 Periodic preventive med est patient 40-64yrs Adelaida Carrion SALES ENABLEMENT ANALYST Work Phone: [facility] Comment on above: Well woman exam with routine gynecological exam (Primary Dx); Morbid obesity (CMS/HCC) Start: 02-16-2024 End: 02-16-2024 ambulatory ADELAIDA SHEYLA Not Available Start: 02-04-2024 End: 02-04-2024 Refill Sonamolvin Brown SALES ENABLEMENT ANALYST Work Phone: [facility] Comment on above: Restless leg Start: 01-28-2024 End: 01-28-2024 Bamboo flowsheet Adelaida Carrion SALES ENABLEMENT ANALYST Work Phone: [facility] Start: 01-28-2024 End: 01-28-2024 Bamboo flowsheet Adelaida Sheyla SALES ENABLEMENT ANALYST Work Phone: [facility] Start: 01-28-2024 End: 01-28-2024 Office outpatient visit 15 minutes Adelaida Carrion SALES ENABLEMENT ANALYST Work Phone: [facility] Comment on above: Acute cystitis witho ut hematuria (Primary Dx); Tobacco dependence; Needs flu shot; Morbid obesity (CMS/HCC) Start: 01-28-2024 End: 01-28-2024 ambulatory ADELAIDA SHEYLA Not Available Start: 01-25-2024 End: 01-25-2024 ambulatory Syeda Mancuso MD Facility: [place] Start: 01-21-2024 End: 01-25-2024 Clinisync Result Encounter Generic External Data Provider [facility] External Department Unsolicited Start: 01-21-2024 End: 01-25-2024 Clinisync Result Encounter Generic External Data Provider [facility] External Department Unsolicited Start: 01-05-2024 End: 01-05-2024 Clinisync Result Encounter Adelaida Carrion SALES ENABLEMENT ANALYST Work Phone: [facility] Department Unsolicited Start: 01-05-2024 End: 01-05-2024 Clinisync Result Encounter Adelaida Sousabob SALES ENABLEMENT ANALYST Work Phone: [facility] External Department Unsolicited Start: 01-04-2024 End: 01-04-2024 Bamboo flowsheet Adelaida Iglesiasnena SALES ENABLEMENT ANALYST Work Phone: [facility] Start: 01-04-2024 End: 01-04-2024 Bamboo flowsheet Adelaida Sousabob SALES ENABLEMENT ANALYST Work Phone: [facility] Start: 01-04-2024 End: 01-04-2024 Office outpatient visit 25 minutes Adelaida Sousabob SALES ENABLEMENT ANALYST Work Phone: [facility] Comment on above: Bilateral lower extr emity edema (Primary Dx); Essential (primary) hypertension (CMS/HCC); Allergic rhinitis, unspecified; OSMANY (obstructive sleep apnea); Primary hypertension (CMS/HCC); Morbid obesity (CMS/HCC) Start: 01-04-2024 End: 01-04-2024 ambulatory ADELAIDA SOUSAKUSHNena Not Available Start: 12-30-2023 End: 12-30-2023 Refill Adelaida Carrion SALES ENABLEMENT ANALYST Work Phone: [facility] Comment on above: Lower extremity elis a Start: 12-09-2023 End: 12-09-2023 Office outpatient visit 25 minutes Juany Caballero SALES ENABLEMENT ANALYST Work Phone: [facility] [employer] [facility] [address] Comment on above: OSMANY (obstructive sle ep apnea) (Primary Dx); Restless leg Start: 12-09-2023 End: 12-09-2023 ambulatory JUANY NEIL Not Available Start: 12-08-2023 End: 12-08-2023 ambulatory SONAM Keiry BROWN Not Available Start: 12-08-2023 End: 12-08-2023 Office outpatient visit 25 minutes Sonam Brown SALES ENABLEMENT ANALYST [facility] [address] Comment on above: 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CMS /HCC) (Primary Dx); Restless leg; Metabolic encephalopathy Start: 12-08-2023 End: 12-08-2023 Bamboo flowsheet Sonam Brown SALES ENABLEMENT ANALYST Work Phone: [facility] Start: 12-08-2023 End: 12-08-2023 Bamboo flowsheet Sonam C Kevin SALES ENABLEMENT ANALYST Work Phone: [facility] Start: 11-27-2023 End: 11-27-2023 Refill Adelaida Aichholz SALES ENABLEMENT ANALYST Work Phone: [facility] Comment on [...] 06-29-2023 End: 06-29-2023 ambulatory Syeda Mancuso MD Facility:[facility] Start: 05-21-2023 Refill Adelaida Aichholz SALES ENABLEMENT ANALYST Work Phone: [facility] Comment on above: Acute cystitis with hematuria (Primary Dx) Start: 05-18-2023 End: 05-18-2023 Office outpatient visit 25 minutes Adelaida Aichholz SALES ENABLEMENT ANALYST Work Phone: [facility] Comment on above: Encounter for annual [...] encounter Start: 05-18-2023 Bamboo flowsheet Adelaida Carrion SALES ENABLEMENT ANALYST Work Phone: [facility] Start: 05-18-2023 Bamboo flowsheet Adelaida Sousabob SALES ENABLEMENT ANALYST Work Phone: [facility] Start: 05-18-2023 End: 05-18-2023 Patient encounter procedure Adelaida Sousakushnena SALES ENABLEMENT ANALYST Work Phone: [facility] Start: 03-23-2023 End: 03-23-2023 Admission to same day surgery center Adelaida Sousabob Work Phone: [facility] Work Phone: Start: 03-23-2023 End: 03-23-2023 ambulatory Adelaida Mcnair Yingsherinekushnena Work Phone: [facility] Work Phone: Start: 02-12-2023 End: 02-12-2023 ambulatory Jace Graham Other [facility] Other Start: 02-12-2023 Telephone encounter Jace CORADO G Mechanical Service Representative Start: 12-19-2022 End: 12-19-2022 ambulatory Rosemary Kirkland Other [facility] Other Start: 12-19-2022 Office outpatient ne w 10 minutes Rosemary Kirkland [facility] [place] Start: 11-17-2022 End: 11-20-2022 Evaluation and management of inpatient Adelaida Carrion Work Phone: [facility] Work Phone: Start: 09-04-2022 ambulatory ARIAN JOHNSON . Facili ty:H1 Start: 08-26-2022 ambulatory NARENDRANATH LAKSHMIPATHY . Facility:H1 Start: 08-08-2022 End: 08-09-2022 ambulatory LIVIER CARRION Facility:H1 Start: 07-25-2022 End: 07-26-2022 ambulatory GARMENT FOLDER ADELAIDA CARRION Facility:H1 Start: 07-15-2022 End: 07-15-2022 ambulatory NARENDRANATH LAKSHMIPATHY . Facility:H1 Start: 07-11-2022 ambulatory NARENDRANATH LAKSHMIPATHY . Facility:H1 Start: 06-26-2022 End: 06-27-[address] FINA NIXON . Facility:H1 Start: 06-11-2022 ambulatory LIVIER CARRION Facil ity:H1 Start: 05-21-2022 End: 06-11-2022 ambulatory LIVIER CARRION Facility:H1 Start: 05-08-2022 End: 05-09-2022 ambulatory LIVIER CARRION Facility:H1 Start: 04-28-2022 End: 04-28-2022 ambulatory LIVIER CARRION Facility:H1 Start: 04-03-2022 End: 04-04-[address] FINA NIXON . Facility:H1 Start: 03-19-2022 End: 03-20-2022 ambulatory LIVIER CARRION Facility:H1 Start: 02-20-2022 End: 02-20-2022 ambulatory GILMERPRITI NEVES Facility:H1 Start: 01-10-2022 End: 02-12-2022 ambulatory [...] lity:H1 Start: 09-12-2021 End: 09-12-2021 ambulatory LIVIER DEMPSEYA SHEYLA Facility:H1 Start: 08-20-2021 End: 08-20-[address] FINA NIXON . Facility:H1 Start: 07-02-2018 End: 07-03-2018 Patient encounter procedure SUKI EBSANDRA Facility:[facility] Procedures Date Procedure Procedure Detail Performing Clinician Start: 03-02-2024 BLOOD CULTURE 1 Generic External Data Provider Start: 02-16-2024 IGP,APTIMA HPV,AGE GDLN Adelaida Carrion SALES ENABLEMENT ANALYST Work Phone: Start: 01-28-2024 Urnls dip stick/tabl et rgnt non-auto w/o micrscp Adelaida Carrion SALES ENABLEMENT ANALYST Work Phone: Start: 01-21-2024 MHPT CULT,URINE Generic External Data Provider Start: 01-05-2024 ALL BASIC METABOLIC PANEL Adelaida Carrion SALES ENABLEMENT ANALYST Work Phone: Start: 09-18-2023 Mammography Adelaida ramos SALES ENABLEMENT ANALYST Work Phone: Start: 03-23-2023 Screening colonoscopy L oneal Sheyla Work Phone: Start: 03-23-2023 Colonoscopy Adelaida ramos SALES ENABLEMENT ANALYST Work Phone: Start: 09-15-2022 Mammography Adelaida ramos SALES ENABLEMENT ANALYST Work Phone: Start: 08-28-2022 Microscopic observat ion [Identifier] in Cervix by Cyto stain Adelaida Carrion SALES ENABLEMENT ANALYST Work Phone: Start: 07-02-2018 ANESTH KNEE AREA SURGERY CHAPARRITA HENDRICKS Start: 07-02-2018 REMOVAL OF SUPPORT IMPLANT SUKI ESCALANTE Start: 07-02-2018 TREAT KNEECAP FRACTURE SUKI EBSANDRA Plan of Treatment Date Care Activity Detail Author Start: 03-23-2033 Screening for malign ant neoplasm of colon [facility] Start: 08-28-2025 Screening for malign ant neoplasm of cervix [facility] Start: 02-15-2025 Medicare Annual Well ness (AWV) Medicare Annual Wellness (AWV) [facility] Start: 09-17-2024 Screening for malign ant neoplasm of breast Mammogram [facility] Start: 08-16-2024 End: 08-16-2024 Patient encounter procedure 08/16/2024 11:30 AM EDT Office Visit [facility] [address] [place] [address] Adelaida Carrion, BRIANA [address] [place] [phone] [facility] Start: 08-11-2024 End: 08-11-2024 Patient encounter procedure 08/11/2024 10:30 AM EDT Office Visit [facility] [address] [place] [address] Adelaida Carrion NP [address] [place] [phone] [facility] Start: 07-26-2024 End: 07-26-2024 Patient encounter procedure 07/26/2024 11:00 AM EDT Office Visit [place] [address] [place] [phone] Juany Leggett PA [address] [place], [place] [phone] [place] Start: 06-22-2024 End: 06-22-2024 Patient encounter procedure 06/22/2024 11:20 AM EDT Office Visit [facility] [place] [address] [facility] [address] [place] [phone] Juany Leggett PA [address] [place], [place] [phone] [facility] [place] [facility] Start: 06-15-2024 End: 06-15-2024 Patient encounter procedure 06/15/2024 9:20 AM EDT Office Visit [facility] [address] [place] [address] Adelaida Carrion, BRIANA [address] [place] [address] [facility] Start: 05-24-2024 End: 05-24-2024 [facility]: Arrived Start: 05-18-2024 Medicare Annual Well ness (AWV) Medicare Annual Wellness (AWV) [facility] Start: 05-12-2024 End: 05-12-2024 Patient encounter procedure [facility] Comment on above: Primary hypertension (CMS/HCC) (Primary Dx); Chronic kidney disease, stage 3a (HCC) (CMS/HCC); Morbid (severe) obesity due to excess calories (CMS/HCC); Body mass index (BMI) 45.0-49.9, adult (CMS/HCC); OSMANY (obstructive sleep apnea); Hemiparesis, right (CMS/HCC); Gastroesophageal reflux disease, unspecified whether esophagitis present; Metabolic encephalopathy Start: 04-07-2024 End: 04-07-2024 Patient encounter procedure 04/07/2024 12:30 PM EST Office Visit [facility] [address] [phone] [facility] Start: 04-04-2024 End: 04-04-2024 Patient encounter procedure 04/04/2024 1:20 PM EST Office Visit [facility] [address] [place] [address] Adelaida Carrion NP [address] [place] [phone] [facility] Start: 03-22-2024 End: 03-22-2024 Clinical Support 03/22/2024 10:00 AM EST Clinical Support [facility] [place] [facility] [address] [address] [place] [address] [facility] [place] [address] Start: 03-16-2024 End: 03-16-2024 Patient encounter procedure [facility] Comment on above: Metabolic encephalop athy (Primary Dx); OSMANY (obstructive sleep apnea); Morbid obesity (CMS/HCC); Bilateral lower extremity edema; Tobacco dependence; Bipolar disorder with severe depression (CMS/HCC); At risk for polypharmacy; Anxiety Start: 03-14-2024 End: 03-14-2024 Patient encounter procedure 03/14/2024 10:00 AM EST Office Visit [facility] [address] [facility] [address] [place] [address] David Foster, PhD [address] [place], [place] [phone] [facility] Start: 03-11-2024 End: 03-11-2025 EEG 2 Hour Routine EEG 2 Hour Routine Neurology Routine Altered mental status, unspecified altered mental status type Expected: 03/11/2024 (Approximate), Expires: 03/11/2025 [facility] Work Phone: Comment on above: Expected: 03/11/2024 (Approximate), Expires: 03/11/2025 Start: 03-10-2024 End: 03-10-2024 Patient encounter procedure 03/10/2024 3:40 PM EST Office Visit [facility] [address] [place] [phone] Rachel Mitchell PA [address] [place] [address] [facility] Start: 03-01-2024 End: 03-01-2024 Patient encounter procedure 03/01/2024 12:00 PM EST Office Visit [facility] [place] [facility] [address] [place] [address] Juany Leggett PA [address] [place] [address] [facility] [place] [facility] Start: 02-29-2024 End: 02-29-2024 Patient encounter procedure 02/29/2024 2:40 PM EST Office Visit [facility] [place] [facility] [address] [place] [address] Sonam Brown, SALES ENABLEMENT ANALYST [address] [place] [address] [facility] [place] [facility] Start: 02-16-2024 End: 02-15-2025 THIN PREP TIS PAP AND HR HPV DNA THIN PREP TIS PAP AND HR HPV DNA Pathology and Cytology Routine Well woman exam with routine gynecological exam Expected: 02/16/2024 (Approximate), Expires: 02/15/2025 [facility] Work Phone: Comment on above: Expected: 02/16/2024 (Approximate), Expires: 02/15/2025 Start: 02-16-2024 End: 02-16-2024 Patient encounter procedure 02/16/2024 11:30 AM EST [facility] [address] [place] [address] Adelaida Carrion NP [address] [place] [address] [facility] Start: 02-04-2024 Influenza vaccination Influenza Vacc ine (#1) [facility] Comment on above: Postponed from 12/05 (Patient Does Not Have Time) Start: 01-28-2024 End: 01-27-2025 URINARY TRACT INFECTION (HTRX) URINARY TRACT INFECTION (HTRX) Lab Routine Acute cystitis without hematuria Expected: 01/28/2024 (Approximate), Expires: 01/27/2025 [facility] Work Phone: Comment on above: Expected: 01/28/2024 (Approximate), Expires: 01/27/2025 Start: 01-28-2024 End: 01-28-2024 Patient encounter procedure [facility] Comment on above: Tobacco dependence ( [...] [place] [address] [place] [address] Juany Caballero NP [address] [place], [place] [facility] [address] [facility] Start: 12-08-2023 End: 12-08-2023 Patient encounter procedure 12/08/2023 3:20 PM EDT Office Visit [facility] [place] [facility] [address] [place] [address] Sonam Brown NP [address] [place], [place] [phone] [facility] [place] [address] Start: 09-16-2023 Screening for malign ant neoplasm of breast Mammogram [facility] Start: 08-17-2023 End: 08-17-2023 Patient encounter procedure 08/17/2023 9:20 AM EDT Office Visit [facility] [address] [place] [phone] Adelaida Carrion NP [address] [place] [address] [facility] Start: 05-22-2023 End: 05-22-2023 Patient encounter procedure 05/22/2023 8:45 AM EST Office Visit [facility] [address] [place] [address] Travon Hines PA [address] [facility] [address] [place] [address] [facility] Start: 05-18-2023 End: 05-18-2023 Patient encounter procedure 05/18/2023 4:30 PM EST Office Visit [facility] [address] [place] [address] Adelaida Carrion NP [address] [place] [address] Arrived [facility] Comment on above: Arrived Start: 05-18-2023 End: 05-18-2024 XR Hip - left 3 Views XR hip left 2 or 3 views Imaging Routine Left hip pain Expected: 05/18/2023 (Approximate), Expires: 05/18/2024 [facility] Work Phone: Comment on above: Expected: 05/18/2023 (Approximate), Expires: 05/18/2024 Start: 03-23-[address] [facility] Start: 11-20-[address] [facility] Start: 11-18-2022 Referral to clinical power line installer and repairer [facility] Start: 11-17-2022 Hospital admission [facility] Start: 11-17-[address] [facility] Start: 12-06-1991 Screening for malign ant neoplasm of cervix HPV/Cotest [facility] Start: 1960 Medicare Annual Well ness (AWV) Medicare Annual Wellness (AWV) [facility] Start: 1960 Screening for malign ant neoplasm of colon [facility] BLOOD CULTURE 1 BLOOD CULTURE 1 Lab Routine 03/02/2024 3:20 AM EST [facility] Patient Education [facility] Work Phone: Patient referral [facility] Work Phone: [facility] Immunizations Immunization Date Immunization Notes Care Provider Fa hilda 01-28-2024 Influenza, injectabl e, Madin [place] Canine Kidney, preservative free, quadrivalent Adelaida Aichholz SALES ENABLEMENT ANALYST Work Phone: [facility] 08-17-2023 zoster vaccine recombinant Adelaida Aichholz SALES ENABLEMENT ANALYST Work Phone: [facility] 02-13-2023 influenza, injectabl e, quadrivalent, preservative free Adelaida Aichholz SALES ENABLEMENT ANALYST Work Phone: [facility] 02-13-2023 SARS-COV-2 (COVID-19 ) vaccine, mRNA, spike protein, LNP, PF, 50 mcg/0.5 mL Adelaida Aichholz SALES ENABLEMENT ANALYST Work Phone: [facility] 02-13-2023 influenza virus vaccine, unspecified formulation Adelaida Aichholz SALES ENABLEMENT ANALYST Work Phone: [facility] 02-19-2022 diphtheria, tetanus toxoids and pertussis vaccine Adelaida Aichholz SALES ENABLEMENT ANALYST Work Phone: [facility] 03-02-2021 Moderna SARS-CoV-2 Vaccination Adelaida Aichholz SALES ENABLEMENT ANALYST Work Phone: [facility] 08-24-2020 Moderna SARS-CoV-2 Vaccination Adelaida Aichholz SALES ENABLEMENT ANALYST Work Phone: [facility] 07-27-2020 Moderna SARS-CoV-2 Vaccination Adelaida Aichholz SALES ENABLEMENT ANALYST Work Phone: [facility] 05-28-2018 influenza, injectabl e, quadrivalent, preservative free Adelaida Aichholz Work Phone: [facility] 2017 pneumococcal conjuga te vaccine, 13 valent Adelaida Aichholz SALES ENABLEMENT ANALYST Work Phone: [facility] Payers Date Payer Category Payer Medicare [id number] 2022 Self-pay [id number] 2022 Medicare [id number] 2022 Medicare (Managed Care) [facility] [id number] 2008 Unknown [id number] 1961 Unknown [id number] 2.16.840.1.018964.3.579.2 .647 1961 Unknown [id number] 2.16.840.1.758423.3.579.2 .593 1961 Unknown [id number] 2.16.840.1.628775.3.579.2 .593 1961 Unknown [id number] 2.16.840.1.558589.3.579.2 .593 1961 Unknown [id number] 2.16.840.1.648017.3.579.2 .593 1961 Unknown [id number] 2.16.840.1.344737.3.579.2 .593 1961 Unknown [id number] 2.16.840.1.664119.3.579.2 .593 1961 Unknown [id number] 2.16.840.1.568139.3.579.2 .593 1961 Unknown [id number] 2.16.840.1.853445.3.579.2 .593 1961 Unknown [id number] 2.16.840.1.917632.3.579.2 .593 1961 Unknown [id number] 2.16.840.1.531418.3.579.2 .593 1961 Unknown [id number] 2.16.840.1.982705.3.579.2 .593 1961 Unknown [id number] 2.16.840.1.740415.3.579.2 .593 1961 Unknown [id number] 2.16.840.1.341296.3.579.2 .593 1961 Unknown [id number] 2.16.840.1.443025.3.579.2 .593 1961 Unknown [id number] 2.16.840.1.223404.3.579.2 .593 1961 Unknown [id number] 2.16.840.1.402545.3.579.2 .593 1961 Unknown [id number] 2.16.840.1.797922.3.579.2 .593 1961 Unknown [id number] 2.16.840.1.298594.3.579.2 .593 1961 Unknown [id number] 2.16.840.1.951672.3.579.2 .593 1961 Unknown [id number] 2.16.840.1.822041.3.579.2 .593 1961 Unknown [id number] 2.16.840.1.098723.3.579.2 .593 1961 Unknown [id number] 2.16.840.1.668874.3.579.2 .593 1961 Unknown [id number] 2.16.840.1.736707.3.579.2 .593 1961 Unknown [id number] 2.16.840.1.720750.3.579.2 .593 1961 Unknown [id number] 2.16.840.1.225139.3.579.2 .1258 1961 Unknown [id number] 2.16.840.1.370281.3.579.2 .1258 1961 Unknown [id number] 2.16.840.1.786588.3.579.2 .1258 1961 Unknown [id number] 2.16.840.1.876746.3.579.2 .1258 1961 Unknown [id number] 2.16.840.1.979174.3.579.2 .1258 1961 Unknown [id number] 2.16.840.1.812660.3.579.2 .1258 1961 Unknown [id number] 2.16.840.1.054378.3.579.2 .1258 1961 Unknown [id number] 2.16.840.1.324459.3.579.2 .1258 1961 Unknown [id number] 2.16.840.1.512765.3.579.2 .1258 1961 Unknown [id number] 2.16.840.1.485991.3.579.2 .1258 1961 Unknown [id number] 2.16.840.1.987432.3.579.2 .1258 1961 Unknown [id number] 2.16.840.1.789908.3.579.2 .1258 1961 Unknown [id number] 2.16.840.1.991697.3.579.2 .1258 1961 Unknown [id number] 2.16.840.1.523175.3.579.2 .1258 1961 Unknown [id number] 2.16.840.1.175658.3.579.2 .1259 1961 Unknown [id number] 2.16.840.1.044581.3.579.2 .9 1961 Unknown [id number] 2.16.840.1.211035.3.579.2 .9 1961 Unknown [id number] 2.16.840.1.709668.3.579.2 .9 1961 Unknown [id number] 2.16.840.1.175615.3.579.2 .9 1961 Unknown [id number] 2.16.840.1.167719.3.579.2 .9 1961 Unknown [id number] 2.16.840.1.854412.3.579.2 .196 1961 Unknown [id number] 2.16.840.1.688805.3.579.2 .1961 Unknown [id number] 2.16.840.1.141383.3.579.2 .196 1961 Unknown [id number] 2.16.840.1.830628.3.579.2 .196 1959 Medicare [id number] 1959 Unknown [id number] Private Health Insurance [facility] [id number] Unknown [id number] 2.16.840.1.793949.3.579.2 .531 Unknown [id number] 2.16.840.1.823830.3.579.2 .531 Social History Date Type Detail Facility Start: 11-18-2022 End: 10-14-2023 Tobacco smoking status NHIS Ex-smoker (finding) [facility] Start: 1960 Sex Assigned At Female [facility] Start: 03-25-2023 End: 08-16-2023 Sex Assigned At [facility] Start: 04-06-1976 End: 04-06-2016 History of tobacco use Current smoker [facility] Start: 04-06-1976 End: 04-06-2016 History of tobacco use Cigarette Smoker [facility] Start: 02-09-2023 End: 08-16-2023 Cigarettes smoked current (pack per day) - Reported 1 [facility] Start: 02-09-2023 End: 10-14-2023 Tobacco use and exposure Smokeless tobacco non-user [facility] Start: 05-18-2023 End: 05-24-2024 Alcohol intake Lifetime non-drinker (finding) [facility] [...] To some extent [facility] (I/We) worried kimmie er (my/our) food would run out before (I/we) got money to buy more. Sometimes true [facility] Goals Date Patient Goal Desired Activity /State Functional Status Date Assessment Result Facility 11-20-2022 Functional status Patient at Baseline [facility] Work Phone: Mental Status Date Assessment Result Facility 11-20-2022 Cognitive function Cognitive Sta tus Patient is Progressing Toward Baseline [facility] Work Phone: Clinical Notes 10-03-2021 to 05-12-2024 VALERIE LU - 05/12/2024 10:00 AM ESTLisa Aichholz, BRIANA - 05/12/2024 10:00 AM ESTLisa Aichholz, SALES ENABLEMENT ANALYST - 05/12/2024 6:42 AM ESTLisa Aichholz, BRIANA - 05/12/2024 6:41 AM ESTPatient Instructions [...] includes CVA. There is no history of CAD/NE, heart failure or PVD. GERD She reports [...] biotin 5 MG tablet Pt taking OTC (Polimax) Calcium Citrate-Vitamin D (CITRACAL + D PO) Pt taking OTC (Dexetra) carvedilol (COREG) 12.5 mg, Oral, 2 times [...] Daily Magnesium 400 MG capsule Pt taking OTC(Offermatica) Melatonin 12 MG tablet 1 tablet, Nightly Multiple Vitamins-Minerals (BARIATRIC MULTIVITAMINS/IRON PO) Pt taking OTC (Polimax) nystatin (Mycostatin) 710678 UNIT/GM powder 1 application , 2 times [...] Anxiety 05/18/2023 Bipolar disorder with severe depression ([facility]) 05/18/2023 Brain lesion Brain vascular malformation Chronic pain disorder Closed fracture of patella 02/04/2018 Colon polyps Constipation Degenerative cervical disc Degenerative lumbar disc Depression ([facility]) 05/18/2023 Diastolic dysfunction Dizziness 05/18/2023 Dysphagia Fibromyalgia Fibromyalgia Gastrocnemius equinus GERD (gastroesophageal reflux disease) Heart murmur Hematoma of right breast Hemiparesis ([facility]) Hemiparesis, right ([facility]) Hemorrhoid int/external hemorrhoids Hiatal hernia Iron deficiency Left foot pain 03/25/2023 Lower extremity edema Mood disorder ([facility]) mixed mood disorder OSMANY (obstructive sleep apnea) Osteoporosis ([facility]) Overactive bladder Pre-diabetes Primary hypertension ([facility]) 03/25/2023 PTSD (post-traumatic stress disorder) ([facility]) Restless leg Right knee pain Right sided weakness S/P bariatric surgery Shingles Slurred speech Stroke ([facility]) 2018 Tenosynovitis, de Quervain Thoracic [...] that manages your OSMANY: Daniela Hemiparesis, right ([facility]) Stable with this from prior stroke GERD [...] spironolactone (Aldactone) 50 MG tablet Primary hypertension ([facility]) - Primary Please check blood pressure daily and record DASH diet Limit caffeine Take medication as directed Contact office if chest pain, pressure, dizziness, shortness of breath, swelling legs Recommend slow position changes Current meds: amlodipine, losartan Chronic kidney disease, stage 3a (HCC) ([facility]) Monitor labs at minimum every year Body mass index (BMI) 45.0-49.9, adult ([facility]) Other Visit Diagnoses Essential (primary) hypertension ([facility]/HCC) Relevant Medications amLODIPine (Norvasc) 10 MG tablet [...] Morbid (severe) obesity due to excess calories ([facility]) Discussed with patient their BMI (actual, verses recommended). We have also discussed lifestyle modifications: attempts to perform physical activity as chronic conditions allow, also to monitor dietary intake: increasing protein/fruits/veggies and lowering carb intake (unless contraindicated). Limit sodas, juices, and sugary drinks. Has had bariatric surgeries in the past Associated Problem(s): Chronic kidney disease, stage 3a (HCC) ([facility]) Monitor labs at minimum every year Associated Problem(s): GERD (gastroesophageal reflux disease) Recommendations: freq small meals, nothing to eat or drink at least 2 hours prior to bed, limit caffeine, alcohol, as well as spicy foods Meds to limit or avoid if possible: NSAIDS Elevate HOB if possible Current meds: omeprazole Associated Problem(s): Primary hypertension ([facility]) Please check blood pressure daily and record [...] MSC Doctor that manages your OSMANY: Daniela Associated Problem(s): Hemiparesis, right (CMS/HCC) Stable with this from prior stroke documented in this encounter [facility] 05-12-2024 Instructions Adelaida Carrion NP - 05/12/2024 10:00 AM EST No changes in meds documented in this encounter [facility] 04-12-2024 Telephone encounter Note 03/10/2024 Continue Gabapentin 300 mg BID for RLS. Continue clonazepam 0.5mg PO BID for RLS. This was decreased during recent hospitalization Continue Vimpat 50mg PO BID for seizure prevention [facility] 04-12-2024 Miscellaneous Notes 03/10/2024 Continue Gabapentin 300 mg BID for RLS. Continue clonazepam 0.5mg PO BID for RLS. This was decreased during recent hospitalization Continue Vimpat 50mg PO BID for seizure prevention documented in this encounter [facility] 04-07-2024 History of Present illness Narrative [...] performance and score on it. Admitted to [facility] from the [facility] on 08/24/2023 with acute respiratory failure and confusion thought to be secondary to metabolic encephalopathy. LTME in August 2023 negative. Recently evaluated [place] [facility] [place] for severe encephalopathy. Brain MRI [...] any history of alcohol/substance abuse. Reformed smoker. Three Affiliated language Thai. Reported relocating from [place] to [place] in 2011. Completed a bachelor's degree. 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 Currently on disability. Resides with of 26 years along with her son, grandson, and 2 dogs. Has 2 children from a prior relationship. MEDICAL HISTORY/MEDICATION: MEDICATIONS: Current Outpatient Medications Medication Instructions amLODIPine (NORVASC) 10 mg, Oral, Daily biotin 5 MG tablet Pt taking OTC (Polimax) Calcium Citrate-Vitamin D (CITRACAL + D PO) Pt taking OTC (Dexetra) carvedilol (COREG) 12.5 mg, Oral, 2 times [...] Daily Magnesium 400 MG capsule Pt taking OTCFlickr) Melatonin 12 MG tablet 1 tablet, Oral, Nightly Multiple Vitamins-Minerals (BARIATRIC MULTIVITAMINS/IRON PO) Pt taking OTC (Polimax) nystatin (Mycostatin) [id number] UNIT/GM powder 1 application , 2 times [...] design >16th %ile. Motor/Speed of Processing: Right-handed. Debt Recovery Officer strength 16th %ile with right-hand, 38th %ile [...] Learning of a word list 79th %ile ([id number]), delayed recall 93rd %ile. Recognition discriminability 93rd [...] Please contact me with any questions at [phone]. documented in this encounter [facility] 03-16-2024 History of Present illness Narrative Associated Problem(s): Right bundle branch block (RBBB) determined by electrocardiography At this point I will look at her past EKG's, She has had ECHO in past No symptoms, at this time I do not think that further testing is needed Pt is having a memory test done on apr 07 in [place] Pt is anxious and afraid-pt father had dementia Spironolactone pt is asking for 50mg instead of 25mg Images from the original note were not included. Michelle Be is a 63 y.o. female presents with chief complaint of Anxiety HPI: Here for hospital follow up: AMS She was evaluated [place] [facility], was seen by Neurology reviewed notes from [...] biotin 5 MG tablet Pt taking OTC (Polimax) Calcium Citrate-Vitamin D (CITRACAL + D PO) Pt taking OTC ([facility]) carvedilol (COREG) 12.5 mg, Oral, 2 [...] Daily Magnesium 400 MG capsule Pt taking OTFlickr) Melatonin 12 MG tablet 1 tablet, Oral, Nightly Multiple Vitamins-Minerals (BARIATRIC MULTIVITAMINS/IRON PO) Pt taking OTC (Polimax) nystatin (Mycostatin) [id number] UNIT/GM powder 1 application , 2 times [...] Anxiety 05/18/2023 Bipolar disorder with severe depression ([facility]) 05/18/2023 Brain lesion Brain vascular malformation Chronic pain disorder Closed fracture of patella 02/04/2018 Colon polyps Constipation Degenerative cervical disc Degenerative lumbar disc Depression ([facility]/HCC) 05/18/2023 Diastolic dysfunction Dizziness 05/18/2023 Dysphagia Fibromyalgia Fibromyalgia Gastrocnemius equinus GERD (gastroesophageal reflux disease) Heart murmur Hematoma of right breast Hemiparesis ([facility]) Hemiparesis, right ([facility]) Hemorrhoid int/external hemorrhoids Hiatal hernia Iron deficiency Left foot pain 03/25/2023 Lower extremity edema Mood disorder ([facility]) mixed mood disorder OSMANY (obstructive sleep apnea) Osteoporosis ([facility]) Overactive bladder Pre-diabetes Primary hypertension ([facility]) 03/25/2023 PTSD (post-traumatic stress disorder) ([facility]) Restless leg Right knee pain Right sided weakness S/P bariatric surgery Shingles Slurred speech Stroke ([facility]) 2018 Tenosynovitis, de Quervain Thoracic [...] to have evaluation documented in this encounter [facility] 03-16-2024 Instructions Adelaida Carrion NP - 03/16/2024 10:00 AM EST Spironolactone: I discontinued the 25mg script for this, sent a new script to [facility], for a 50mg pill, you will take 1 pill daily Memory testing in Apr 2024 Follow up with me in early May, sooner if needed documented in this encounter [facility] 03-16-2024 Telephone encounter Note Yep, sent to [facility]. [facility] 03-16-2024 Miscellaneous Notes Yep, sent to [facility]. Patient calls and states that hospital lowered her requip to 2 mg at bed time. Okay to send as new dosage? documented in this encounter [facility] 03-15-2024 Telephone encounter Note Patient calls and states that hospital lowered her requip to 2 mg at bed time. Okay to send as new dosage? [facility] 03-14-2024 History of Present illness Narrative [...] performance and score on it. Admitted to [facility] from the [facility] on 08/24/2023 with acute respiratory failure and confusion thought to be secondary to metabolic encephalopathy. Previous LTME in August 2023 negative. Recently evaluated [place] [facility] [place] for severe encephalopathy. Brain MRI [...] any history of alcohol/substance abuse. Reformed smoker. Three Affiliated language Thai. Reported relocating from [place] to [place] in 2011. Completed a bachelors [...] mood disorder OSMANY (obstructive sleep apnea) Osteoporosis ([facility]) Overactive bladder Pre-diabetes Primary hypertension ([facility]) 03/25/2023 PTSD (post-traumatic stress disorder) ([facility]) Restless leg Right knee pain Right sided weakness S/P bariatric surgery Shingles Slurred speech Stroke ([facility]) 2018 Tenosynovitis, de Quervain Thoracic back pain, unspecified back pain laterality, unspecified chronicity Tobacco dependence Vertigo, benign paroxysmal Yeast infection of the skin 05/18/2023 MEDICATIONS: Current Outpatient Medications Medication Instructions amLODIPine (NORVASC) 10 mg, Oral, Daily biotin 5 MG tablet Pt taking OTC (Polimax) Calcium Citrate-Vitamin D (CITRACAL + D PO) Pt taking OTC (Dexetra) carvedilol (COREG) 12.5 mg, Oral, 2 times [...] Daily Magnesium 400 MG capsule Pt taking OTC([employer]) Melatonin 12 MG tablet 1 tablet, Oral, Nightly Multiple Vitamins-Minerals (BARIATRIC MULTIVITAMINS/IRON PO) Pt taking OTC (Polimax) nystatin (Mycostatin) 917252 UNIT/GM powder 1 application , Topical, 2 [...] Please contact me with any questions at [phone]. documented in this encounter [facility] 02-16-2024 History of Present illness Narrative [...] biotin 5 MG tablet Pt taking OTC (Polimax) Calcium Citrate-Vitamin D (CITRACAL + D PO) Pt taking OTC (Dexetra) carvedilol (COREG) 12.5 mg, Oral, 2 times [...] Daily Magnesium 400 MG capsule Pt taking OTC(Offermatica) Melatonin 12 MG tablet 1 tablet, Oral, Nightly Multiple Vitamins-Minerals (BARIATRIC MULTIVITAMINS/IRON PO) Pt taking OTC (Polimax) nystatin (Mycostatin) [id number] UNIT/GM powder 1 application , Topical, 2 [...] Anxiety 05/18/2023 Bipolar disorder with severe depression ([facility]) 05/18/2023 Brain lesion Brain vascular malformation Chronic pain disorder Closed fracture of patella 02/04/2018 Colon polyps Constipation Degenerative cervical disc Degenerative lumbar disc Depression ([facility]) 05/18/2023 Diastolic dysfunction Dizziness 05/18/2023 Dysphagia Fibromyalgia Fibromyalgia Gastrocnemius equinus GERD (gastroesophageal reflux disease) Heart murmur Hematoma of right breast Hemiparesis ([facility]) Hemiparesis, right ([facility]) Hemorrhoid int/external hemorrhoids Hiatal hernia Iron deficiency Left foot pain 03/25/2023 Lower extremity edema Mood disorder ([facility]) mixed mood disorder OSMANY (obstructive sleep apnea) Osteoporosis ([facility]) Overactive bladder Pre-diabetes Primary hypertension ([facility]) 03/25/2023 PTSD (post-traumatic stress disorder) ([facility]) Restless leg Right knee pain Right sided weakness S/P bariatric surgery Shingles Slurred speech Stroke ([facility]) 2018 Tenosynovitis, de Quervain Thoracic [...] nursing note reviewed. Exam conducted with a mechanical integrity specialist present. Constitutional: General: She is not in [...] chronic conditions allow documented in this encounter [facility] 01-28-2024 History of Present illness Narrative [...] fu for UTI and dehydration. See [facility] for HPI Was sent home on Bactrim. Feels completely fine now, no fever, chills, malodorous urine, no constipation diarrhea or abd pain SUBJECTIVE: MEDICATIONS: Current Outpatient Medications Medication Instructions amLODIPine (NORVASC) 10 mg, Oral, Daily biotin 5 MG tablet Pt taking OTC (Polimax) Calcium Citrate-Vitamin D (CITRACAL + D PO) Pt taking OTC (Dexetra) carvedilol (COREG) 12.5 mg, Oral, 2 times [...] Daily Magnesium 400 MG capsule Pt taking OTC(Offermatica) Melatonin 12 MG tablet 1 tablet, Oral, Nightly Multiple Vitamins-Minerals (BARIATRIC MULTIVITAMINS/IRON PO) Pt taking OTC (Polimax) nystatin (Mycostatin) [id number] UNIT/GM powder 1 application , Topical, 2 [...] Anxiety 05/18/2023 Bipolar disorder with severe depression ([facility]/HCC) 05/18/2023 Brain lesion Brain vascular malformation Chronic pain disorder Closed fracture of patella 02/04/2018 Colon polyps Constipation Degenerative cervical disc Degenerative lumbar disc Depression (CMS/HCC) 05/18/2023 Diastolic dysfunction Dizziness 05/18/2023 Dysphagia Fibromyalgia Fibromyalgia Gastrocnemius equinus GERD (gastroesophageal reflux disease) Heart murmur Hematoma of right breast Hemiparesis ([facility]) Hemiparesis, right ([facility]) Hemorrhoid int/external hemorrhoids Hiatal hernia Iron deficiency Left foot pain 03/25/2023 Lower extremity edema Mood disorder ([facility]) mixed mood disorder OSMANY (obstructive sleep apnea) Osteoporosis ([facility]) Overactive bladder Pre-diabetes Primary hypertension ([facility]) 03/25/2023 PTSD (post-traumatic stress disorder) ([facility]) Restless leg Right knee pain Right sided weakness S/P bariatric surgery Shingles Slurred speech Stroke ([facility]) 2018 Tenosynovitis, de Quervain Thoracic [...] of the risks of continued smoking: stroke, NE, all forms of cancer, lung disease, and [...] Relevant Orders Flu vaccine, MDCK, quadrivalent, PF ([id number]) (Flucelvax single dose syringe) Associated Problem(s): Tobacco dependence The patient has been advised of the risks of continued smoking: stroke, NE, all forms of cancer, lung disease, and . Options for quitting smoking include: cold turkey, hypnosis, acupuncture, nicotine replacement meds (gum, lozenges, and patches), Buproprion, and Varenicline. At this time pt is encouraged to evaluate their goals for wanting to quit smoking, and reach out to provider when ready to start this process documented in this encounter [facility] 01-04-2024 History of Present illness Narrative [...] compliance problems. There is no history of CAD/NE, heart failure or PVD. Identifiable causes of hypertension include sleep apnea. SUBJECTIVE: MEDICATIONS: Current Outpatient Medications Medication Instructions amLODIPine (NORVASC) 10 mg, Oral, Daily biotin 5 MG tablet Pt taking OTC (Polimax) Calcium Citrate-Vitamin D (CITRACAL + D PO) Pt taking OTC (Dexetra) carvedilol (COREG) 12.5 mg, Oral, 2 times [...] Daily Magnesium 400 MG capsule Pt taking OTC(Offermatica) Melatonin 12 MG tablet 1 tablet, Oral, Nightly Multiple Vitamins-Minerals (BARIATRIC MULTIVITAMINS/IRON PO) Pt taking OTC (Polimax) nystatin (Mycostatin) [id number] UNIT/GM powder 1 application , Topical, 2 [...] Anxiety 05/18/2023 Bipolar disorder with severe depression ([facility]) 05/18/2023 Brain lesion Brain vascular malformation Chronic pain disorder Closed fracture of patella 02/04/2018 Colon polyps Constipation Degenerative cervical disc Degenerative lumbar disc Depression ([facility]) 05/18/2023 Diastolic dysfunction Dizziness 05/18/2023 Dysphagia Fibromyalgia Fibromyalgia Gastrocnemius equinus GERD (gastroesophageal reflux disease) Heart murmur Hematoma of right breast Hemiparesis ([facility]) Hemiparesis, right ([facility]) Hemorrhoid int/external hemorrhoids Hiatal hernia Iron deficiency Left foot pain 03/25/2023 Lower extremity edema Mood disorder ([facility]) mixed mood disorder OSMANY (obstructive sleep apnea) Osteoporosis ([facility]) Overactive bladder Pre-diabetes Primary hypertension ([facility]) 03/25/2023 PTSD (post-traumatic stress disorder) ([facility]) Restless leg Right knee pain Right sided weakness S/P bariatric surgery Shingles Slurred speech Stroke ([facility]) 2018 Tenosynovitis, de Quervain Thoracic [...] MCG/ACT nasal spray documented in this encounter [facility] 12-09-2023 History of Present illness Narrative [...] machine. She is normally seen at the [facility] and was last seen on [...] of right breast Hemiparesis (CMS/HCC) Hemiparesis, right ([facility]) Hemorrhoid int/external hemorrhoids Hiatal hernia Iron deficiency Left foot pain 03/25/2023 Lower extremity edema Mood disorder ([facility]) mixed mood disorder OSMANY (obstructive sleep apnea) Osteoporosis ([facility]) Overactive bladder Pre-diabetes Primary hypertension ([facility]) 03/25/2023 PTSD (post-traumatic stress disorder) ([facility]) Restless leg Right knee pain Right sided weakness S/P bariatric surgery Shingles Slurred speech Stroke ([facility]) 2018 Tenosynovitis, de Quervain Thoracic [...] melatonin. She was last seen in the [facility] on June 24, 2023. Since [...] for short term insomnia and not for intermediate insomnia. She is compliant on her download [...] was counseled on the risks of stroke, NE, and sudden with OSMANY, along with the [...] clinic: one year documented in this encounter [facility] 12-08-2023 History of Present illness Narrative [...] Degenerative cervical disc Degenerative lumbar disc Depression ([facility]) 05/18/2023 Diastolic dysfunction Dizziness 05/18/2023 Dysphagia Fibromyalgia Fibromyalgia Gastrocnemius equinus GERD (gastroesophageal reflux disease) Heart murmur Hematoma of right breast Hemiparesis ([facility]) Hemiparesis, right ([facility]) Hemorrhoid int/external hemorrhoids Hiatal hernia Iron deficiency Left foot pain 03/25/2023 Lower extremity edema Mood disorder ([facility]) mixed mood disorder OSMANY (obstructive sleep apnea) Osteoporosis ([facility]) Overactive bladder Pre-diabetes Primary hypertension ([facility]) 03/25/2023 PTSD (post-traumatic stress disorder) ([facility]) Restless leg Right knee pain Right sided weakness S/P bariatric surgery Shingles Slurred speech Stroke ([facility]) 2018 Tenosynovitis, de Quervain Thoracic [...] Review Audit Reviewed by Festus Baron MA (Head Of Science) on 12/08/23 at 1525 Medication Order Taking? Sig Documenting Provider Last Dose Status amLODIPine (Norvasc) 10 MG tablet [id number] Take 1 tablet (10 mg) by mouth Daily Adelaida Carrion NP Active biotin 5 MG tablet [id number] Pt taking OTC (Polimax) Historical Provider, Active Calcium Citrate-Vitamin D (CITRACAL + D PO) [id number] Pt taking OTC (Dexetra) Historical ProviderMD Active Cariprazine HCl (Vraylar) 4.5 MG capsule [id number] Take 4.5 mg by mouth Daily Active carvedilol (Coreg) 12.5 MG tablet [id number] Take 1 tablet (12.5 mg) by mouth in the morning and 1 tablet (12.5 mg) in the evening. Take with meals. Adelaida Carrion NP Active cetirizine (ZyrTEC) 10 MG tablet [id number] Take 1 tablet (10 mg) by mouth Daily Adelaida Carrion NP Active clonazePAM (KlonoPIN) 1 MG tablet [id number] Take 1 tablet (1 mg) by mouth 2 (two) times a day as needed for anxiety Do not start before October 16, 2023. Sonam Brown NP 11/15/23 235 DULoxetine (Cymbalta) [address] capsule [id number] Take 60 mg by mouth in the morning and 60 mg before bedtime. Do not crush or chew.. Active fluconazole (Diflucan) 150 MG tablet [id number] 1 pill every 3 days for a total of 3 doses Adelaida Carrion NP Active fluticasone (Flonase) 50 MCG/ACT nasal spray [id number] Administer 2 sprays into each nostril Daily Adelaida Carrion NP 11/04/23 235 gabapentin (Neurontin) 300 MG capsule [id number] Take 1 capsule (300 mg) by mouth in the morning and 1 capsule (300 mg) before bedtime. Sonam Brown NP Active losartan (Cozaar) 100 MG tablet [id number] Take 1 tablet (100 mg) by mouth Daily Adelaida Carrion NP Active Magnesium 400 MG capsule [id number] Pt taking OTC(Offermatica) Historical ProviderMD Active Melatonin 12 MG tablet [id number] Take 1 tablet by mouth at bedtime Active Multiple Vitamins-Minerals (BARIATRIC MULTIVITAMINS/IRON PO) [id number] Pt taking OTC (Polimax) Historical ProviderMD Active nystatin (Mycostatin) 446012 UNIT/GM powder [id number] Apply 1 application topically in the morning and 1 application before bedtime. Adelaida Carrion NP Active omeprazole (PriLOSEC) [address] capsule [id number] Take 1 capsule (20 mg) by mouth in the morning. Take before meals. Adelaida Carrion NP Active rOPINIRole (Requip) 4 MG tablet [id number] Take 1 tablet (4 mg) by mouth at bedtime Sonamolvin Brown NP Active spironolactone (Aldactone) 25 MG tablet [id number] Take 2 tablets (50 mg) by mouth Daily Adelaida Carrion NP Active tiZANidine (Zanaflex) 2 MG tablet [id number] Take 2 mg by mouth every 8 (eight) hours Adelaida Carrion NP Active traZODone (Desyrel) 150 MG tablet [id number] Take 150 mg by mouth at bedtime Active HPI AMS -Patient was admitted to [facility] from the [facility] on 08/24/2023 with acute respiratory failure and confusion thought to be secondary to metabolic encephalopathy. Patient denies any new hospital stays. -She was seen by Neurology who thought she had a toxic encephalopathy secondary to medication overuse. -She was monitored on LTME which did not show any evidence of seizures. -After she was discharged [facility] and she was discharged [...] ankle and great toe bilaterally. Coordination Right: [id number] normal. Rapid alternating movement normal.Left: [id number] normal. Rapid alternating movement normal. Gait Casual gait is normal including stance, stride, and arm swing. Motor Examination RUE Strength deltoid, biceps, triceps, wrist extensors, wrist extensors, wrist flexor, poultry farmworker strength 5/5. LUE Strength deltoid, biceps, triceps, wrist extensors, wrist extensors, wrist flexor, poultry farmworker strength 5/5. RLE Strength illopsoas, quadriceps, tibialis [...] not all inclusive. Patient was admitted to [facility] on 08/24/2023 with acute respiratory failure and [...] of the brain in July 2019 showed [id number] white matter changes with the largest area [...] make further recommendations documented in this encounter [facility] 05-18-2023 History of Present illness Narrative [...] (BARIATRIC MULTIVITAMINS/IRON PO) Bariatric Multivitamins/Iron nystatin (Mycostatin) 759294 UNIT/GM powder 1 application , Topical, 2 [...] Anxiety 05/18/2023 Bipolar disorder with severe depression ([facility]) 05/18/2023 Brain vascular malformation Chronic pain disorder Colon polyps Constipation Degenerative cervical disc Degenerative lumbar disc Depression ([facility]) 05/18/2023 Diastolic dysfunction Dizziness 05/18/2023 Dysphagia Fibromyalgia Gastrocnemius equinus GERD (gastroesophageal reflux disease) Heart murmur Hematoma of right breast Hemiparesis, right ([facility]) Hemorrhoid int/external hemorrhoids Hiatal hernia Iron deficiency Left foot pain 03/25/2023 Lower extremity edema Mood disorder ([facility]) mixed mood disorder OSMANY (obstructive sleep apnea) Osteoporosis ([facility]) Overactive bladder Pre-diabetes Primary hypertension ([facility]) 03/25/2023 PTSD (post-traumatic stress disorder) ([facility]) Restless leg Right knee pain Right sided weakness S/P bariatric surgery Shingles Slurred speech Stroke ([facility]) 2018 Tenosynovitis, de Quervain Thoracic [...] yearly and prn documented in this encounter [facility] 03-23-2023 Procedure note [facility] 12-19-2022 Evaluation note Encounter Date Diagnosis Assessment Notes Dec, Skin candidiasis (ICD-10 - B37.2) Drink plenty fluids, get plenty of rest. Continue home medications as prescribed. Take the Diflucan as prescribed until gone. Follow-up with your family physician if no improvement in 2 to 3 days [facility] Other 08-17-2023 Discharge summary Author Eduardo bautista [facility] November 20, 2022 6:38am Note Date/Time November 20, 2022 6: 38am [facility] [address] [place] [address] Discharge Summary Signed Patient: Michelle Be MR#: [id number] : 1960 Acct:[id number] Age/Sex: 61 / F Adm Date: 3 Loc: 1S Room: [address] [place] [address]: Gaudencio Monk MD Copies to: [...] time.? She reports moving to [place] from [place] in 2011 and was then diagnosed with bipolar disorder at [facility] in [place], where she still follows with a therapist.? Shereports that she has been with 7 therapists in the last 9 years and is currentlycompleting EMDR with her current therapist. Past hospitalizations: Her most recent hospitalization was 5 years ago [place] in [place] for the same feeling she is experiencing [...] worked since 2010 due to her fibromyalgia.? [facility]. Relationships: Reports having people [...] self or stop treatment, but to call [place], 911 or come to the nearest emergency [...] PO QID [facility] [Outside] ( manager user interface: (Insert date/time here) Therapy:? (insert date/time here) [...] signed by Eduardo Monk MD> 11/20/22 0638 [facility] Work Phone: 1(972) 163-621808-16-2023 Progress note Author Eduardo bautista [facility] November 19, 2022 6:25am Note Date/Time November 19, 2022 6: 25am [facility] EN[facility] [address] [place] [address] Psychiatry Progress Note Signed Patient: Michelle Be MR#: [id number] : 1960 Acct:[id number] Age/Sex: 61 / F Adm Date: 3 Loc: Room: [address] [place] [address] Type : ADM IN Attending Dr: Gaudencio [...] signed by Eduardo Monk MD> 11/19/22 0625 [facility] Work Phone: 1(212) 131-934908-15-2023 Progress note Author Eduardo bautista [facility] November 18, 2022 11:01am Note Date/Time November 18, 2022 10 :11am [facility] [address] [place] [address] Psychiatry Progress Note Signed Patient: Michelle Be MR#: [id number] : 1960 Acct:[id number] Age/Sex: 61 / F Adm Date: 3 Loc: Room: [address] [place] [address] Type : ADM IN Attending Dr: Gaudencio [...] by requesting a schedule 2 referring to [place] for pain management specifically every 4-6 hours [...] signed by MD DA Rangel> 11/18/22 1011 [facility] Work Phone: 1(968) 256-169908-14-2023 History and physical note Author Eduardo bautista [facility] November 17, 2022 12:48pm Note Date/Time November 17, 2022 12 :48pm [facility] [address] [place] [address] Psychiatry H&P Signed Patient: Michelle Be MR#: [id number] : 1960 Acct:[id number] Age/Sex: 61 / F Adm Date: 3 Loc: Room: [address] [place] [address] Type: ADM IN Attending Dr: Gaudencio Monk MD Copies to: MD Adelaida Álvarez, SALES ENABLEMENT ANALYST-C~ Date of Service: 11/17/2022 HPI History of [...] time. She reports moving to [place] from [place] in 2011 and was then diagnosed with bipolar disorder at [facility] in [place], where she still follows with a therapist. [...] worked since 2010 due to her fibromyalgia. [facility]. Relationships: Reports having people [...] signed by Eduardo Monk MD> 11/17/22 1248 [facility] Work Phone: 1([phone]) 236-971903-23-2023 NoteCONSULTATION CONSULTATION DATE: 06/26/2022 To: Nurse Carrion [...] L5-S1 facet joint injection under fluoroscopic guidance.[facility] [id number] NotePROCEDURE: XR SHOULDER RT 2V or > [...] by: KINGSLEY CLEMENTS Date: 2022-05-09 09:21[facility]01-23-2023 NotePROCEDURE: XR WRIST LT MIN [...] Electronically authenticated by: KINGSLEY CLEMENTS Date: 2022-04-28 13:31[facility]12-29-2022 NoteCONSULTATION CONSULTATION DATE: 04/03/2022 HISTORY [...] her in three months, unless otherwise indicated.[facility] [id number] NoteCONSULTATION CONSULTATION DATE: 01/02/2022 This is a [...] prescription was sent by Dr. Macedo to [facility] in [place] for the compounded cream. She needs a [...] in three months' time unless otherwise indicated.[facility] [id number] NotePROCEDURE: XR ANKLE RT MIN 3 VIEWS, [...] by: KINGSLEY CLEMENTS Date: 2022-01-01 13:11[facility]09-28-2022 NotePROCEDURE: XR ANKLE RT MIN [...] by: KINGSLEY CLEMENTS Date: 2022-01-01 13:11[facility]08-18-2022 NotePROCEDURE: XR FOOT RT MIN 3 VIEWS HISTORY: Pain in right foot , chronic COMPARISON: XR foot right 2020 FINDINGS: BONES:No fracture, dislocation, bone lesion. Small calcaneal degenerative enthesophytes. SOFT TISSUES:No visible soft tissue swelling. EFFUSION:None visible. OTHER: Negative. IMPRESSION: 1. No acute bone abnormality or significant degenerative joint disease. Electronically authenticated by: KINGSLEY CLEMENTS Date: 2021-11-21 16:13[facility]06-30-2022 NoteCONSULTATION CONSULTATION DATE: 10/03/2021 This [...] patient agrees with the plan of care. [facility] Signed and Approved by: ZELDA MCDANIEL . 10/10/2021 10:22:00[facility] Diagnosis Onset Date Resolution Status Allergies acute Bipolar 2 disorder acute Hypertension acute Morbid obesity with BMI of 45.0-49.9, adult acute OSMANY (obstructive sleep apnea) acute Restless legs syndrome acute [facility] Work Phone: Evaluation noteNo InformationNort Mogad Other Evaluation noteNo assessment information available [facility] Work Phone: Evaluation note* Diagnosis Encounter [...] Tobacco dependence Tobacco use disorder Mood disorder ([facility]) Unspecified episodic mood disorder Primary hypertension ([facility]) Unspecified essential hypertension Left hip pain Pain in joint, pelvic region and thigh Open wound of anterior abdominal wall, initial encounter documented in this encounter [facility]* Diagnosis Acute cystitis with hematuria- Primary documented in this encounter [facility]* Diagnosis Left foot pain- Primary Pain in soft tissues of limb Primary hypertension ([facility]) Unspecified essential hypertension Class 3 severe obesity due to excess calories without serious comorbidity with body mass index (BMI) of 45.0 to 49.9 in adult ([facility]) Encounter for annual wellness visit (AWV) in Medicare patient- Primary OSMANY (obstructive sleep apnea) Obstructive sleep apnea (adult) (pediatric) Chronic pain disorder Chronic pain syndrome Gastroesophageal reflux disease, unspecified whether esophagitis present Overactive bladder Hypertonicity of bladder Lower extremity edema Edema Pre-diabetes Other abnormal glucose Morbid obesity ([facility]) Morbid obesity Yeast infection of the skin Candidiasis of skin and nails Tobacco dependence Tobacco use disorder Mood disorder ([facility]) Unspecified episodic mood disorder Primary hypertension ([facility]) Unspecified essential hypertension Left hip pain Pain in joint, pelvic region and thigh Open wound of anterior abdominal wall, initial encounter Primary hypertension ([facility])- Primary Unspecified essential hypertension Yeast infection of the skin Candidiasis of skin and nails Morbid obesity ([facility]) Morbid obesity Primary hypertension ([facility])- Primary Unspecified essential hypertension Encounter for screening mammogram for malignant neoplasm of breast Gastroesophageal reflux disease, unspecified whether esophagitis present Acute gout of right foot, unspecified cause Osteoporosis, unspecified osteoporosis type, unspecified pathological fracture presence ([facility]) Morbid obesity ([facility]) Morbid obesity Pre-diabetes Other abnormal glucose Anemia, unspecified type Vitamin deficiency Unspecified vitamin deficiency Post-viral cough syndrome Primary hypertension ([facility])- Primary Unspecified essential hypertension Allergic rhinitis, unspecified Acute cough Morbid obesity ([facility]) Morbid obesity Former cigarette smoker Personal history of tobacco use, presenting hazards to health Toxic metabolic encephalopathy- Primary Hemiparesis, right ([facility]) Unspecified hemiplegia affecting unspecified side Acute respiratory failure with hypoxia ([facility]) Heart murmur Undiagnosed cardiac murmurs Primary hypertension ([facility] Unspecified essential hypertension Morbid obesity ([facility]) Morbid obesity Bipolar disorder with severe depression ([facility]) Slurred speech Other speech disturbance Bilateral lower extremity edema- Primary Primary hypertension ([facility]) Unspecified essential hypertension Lower extremity edema Edema Essential (primary) hypertension ([facility]) Unspecified essential hypertension Gastro-esophageal reflux disease without esophagitis Allergic rhinitis, unspecified Bilateral lower extremity edema- Primary Morbid (severe) obesity due to excess calories ([facility]) Body mass index (BMI) 45.0-49.9, adult ([facility]) Pre-diabetes Other abnormal glucose Bilateral lower extremity edema- Primary Essential (primary) hypertension ([facility]) Unspecified essential hypertension Allergic rhinitis, unspecified OSMANY (obstructive sleep apnea) Obstructive sleep apnea (adult) (pediatric) Primary hypertension ([facility]) Unspecified essential hypertension Morbid obesity ([facility]) Morbid obesity Acute cystitis without hematuria- Primary Tobacco dependence Tobacco use disorder Needs flu shot Need for prophylactic vaccination and inoculation against influenza Morbid obesity ([facility]) Morbid obesity documented in this encounter [facility]* Diagnosis Left foot pain- Primary Pain in soft tissues of limb Primary hypertension ([facility]) Unspecified essential hypertension Class 3 severe obesity due to excess calories without serious comorbidity with body mass index (BMI) of 45.0 to 49.9 in adult ([facility]) Encounter for annual wellness visit (AWV) in Medicare patient- Primary OSMANY (obstructive sleep apnea) Obstructive sleep apnea (adult) (pediatric) Chronic pain disorder Chronic pain syndrome Gastroesophageal reflux disease, unspecified whether esophagitis present Overactive bladder Hypertonicity of bladder Lower extremity edema Edema Pre-diabetes Other abnormal glucose Morbid obesity ([facility]) Morbid obesity Yeast infection of the skin Candidiasis of skin and nails Tobacco dependence Tobacco use disorder Mood disorder ([facility]) Unspecified episodic mood disorder Primary hypertension ([facility]) Unspecified essential hypertension Left hip pain Pain in joint, pelvic region and thigh Open wound of anterior abdominal wall, initial encounter Primary hypertension ([facility])- Primary Unspecified essential hypertension Yeast infection of the skin Candidiasis of skin and nails Morbid obesity ([facility]) Morbid obesity Primary hypertension ([facility])- Primary Unspecified essential hypertension Encounter for screening mammogram for malignant neoplasm of breast Gastroesophageal reflux disease, unspecified whether esophagitis present Acute gout of right foot, unspecified cause Osteoporosis, unspecified osteoporosis type, unspecified pathological fracture presence ([facility]) Morbid obesity ([facility]) Morbid obesity Pre-diabetes Other abnormal glucose Anemia, unspecified type Vitamin deficiency Unspecified vitamin deficiency Post-viral cough syndrome Primary hypertension ([facility])- Primary Unspecified essential hypertension Allergic rhinitis, unspecified Acute cough Morbid obesity ([facility]) Morbid obesity Former cigarette smoker Personal history of tobacco use, presenting hazards to health Toxic metabolic encephalopathy- Primary Hemiparesis, right ([facility]) Unspecified hemiplegia affecting unspecified side Acute respiratory failure with hypoxia ([facility]) Heart murmur Undiagnosed cardiac murmurs Primary hypertension ([facility] Unspecified essential hypertension Morbid obesity ([facility]) Morbid obesity Bipolar disorder with severe depression ([facility]) Slurred speech Other speech disturbance Bilateral lower extremity edema- Primary Primary hypertension ([facility]) Unspecified essential hypertension Lower extremity edema Edema Essential (primary) hypertension ([facility]) Unspecified essential hypertension Gastro-esophageal reflux disease without esophagitis Allergic rhinitis, unspecified Bilateral lower extremity edema- Primary Morbid (severe) obesity due to excess calories ([facility]) Body mass index (BMI) 45.0-49.9, adult ([facility]) Pre-diabetes Other abnormal glucose Bilateral lower extremity edema- Primary Essential (primary) hypertension ([facility]) Unspecified essential hypertension Allergic rhinitis, unspecified OSMANY (obstructive sleep apnea) Obstructive sleep apnea (adult) (pediatric) Primary hypertension ([facility]) Unspecified essential hypertension Morbid obesity ([facility]) Morbid obesity Acute cystitis without hematuria- Primary Tobacco dependence Tobacco use disorder Needs flu shot Need for prophylactic vaccination and inoculation against influenza Morbid obesity ([facility]) Morbid obesity Restless leg Restless legs syndrome (RLS) documented in this encounter [facility] Diagnosis Left foot pain- Primary Pain in soft tissues of limb Primary hypertension ([facility]) Unspecified essential hypertension Class 3 severe obesity due to excess calories without serious comorbidity with body mass index (BMI) of 45.0 to 49.9 in adult ([facility]) Encounter for annual wellness visit (AWV) in Medicare patient- Primary OSMANY (obstructive sleep apnea) Obstructive sleep apnea (adult) (pediatric) Chronic pain disorder Chronic pain syndrome Gastroesophageal reflux disease, unspecified whether esophagitis present Overactive bladder Hypertonicity of bladder Lower extremity edema Edema Pre-diabetes Other abnormal glucose Morbid obesity ([facility]) Morbid obesity Yeast infection of the skin Candidiasis of skin and nails Tobacco dependence Tobacco use disorder Mood disorder ([facility]) Unspecified episodic mood disorder Primary hypertension ([facility]) Unspecified essential hypertension Left hip pain Pain in joint, pelvic region and thigh Open wound of anterior abdominal wall, initial encounter Primary hypertension ([facility])- Primary Unspecified essential hypertension Yeast infection of the skin Candidiasis of skin and nails Morbid obesity ([facility]) Morbid obesity Primary hypertension ([facility])- Primary Unspecified essential hypertension Encounter for screening mammogram for malignant neoplasm of breast Gastroesophageal reflux disease, unspecified whether esophagitis present Acute gout of right foot, unspecified cause Osteoporosis, unspecified osteoporosis type, unspecified pathological fracture presence ([facility]) Morbid obesity ([facility]) Morbid obesity Pre-diabetes Other abnormal glucose Anemia, unspecified type Vitamin deficiency Unspecified vitamin deficiency Post-viral cough syndrome Primary hypertension ([facility])- Primary Unspecified essential hypertension Allergic rhinitis, unspecified Acute cough Morbid obesity ([facility]) Morbid obesity Former cigarette smoker Personal history of tobacco use, presenting hazards to health Toxic metabolic encephalopathy- Primary Hemiparesis, right ([facility]) Unspecified hemiplegia affecting unspecified side Acute respiratory failure with hypoxia ([facility]) Heart murmur Undiagnosed cardiac murmurs Primary hypertension ([facility] Unspecified essential hypertension Morbid obesity ([facility]) Morbid obesity Bipolar disorder with severe depression ([facility]) Slurred speech Other speech disturbance Bilateral lower extremity edema- Primary Primary hypertension ([facility]) Unspecified essential hypertension Lower extremity edema Edema Essential (primary) hypertension ([facility]) Unspecified essential hypertension Gastro-esophageal reflux disease without esophagitis Allergic rhinitis, unspecified Bilateral lower extremity edema- Primary Morbid (severe) obesity due to excess calories ([facility]) Body mass index (BMI) 45.0-49.9, adult ([facility]) Pre-diabetes Other abnormal glucose Bilateral lower extremity edema- Primary Essential (primary) hypertension ([facility]) Unspecified essential hypertension Allergic rhinitis, unspecified OSMANY (obstructive sleep apnea) Obstructive sleep apnea (adult) (pediatric) Primary hypertension ([facility]) Unspecified essential hypertension Morbid obesity ([facility]) Morbid obesity Acute cystitis without hematuria- Primary Tobacco dependence Tobacco use disorder Needs flu shot Need for prophylactic vaccination and inoculation against influenza Morbid obesity ([facility]) Morbid obesity Well woman exam with routine gynecological exam- Primary Routine gynecological examination Morbid obesity ([facility]) Morbid obesity documented in this encounter [facility] HealthcareEvaluation note* Diagnosis Left foot pain- Primary Pain in soft tissues of limb Primary hypertension ([facility]) Unspecified essential hypertension Class 3 severe obesity due to excess calories without serious comorbidity with body mass index (BMI) of 45.0 to 49.9 in adult ([facility]) Encounter for annual wellness visit (AWV) in Medicare patient- Primary OSMANY (obstructive sleep apnea) Obstructive sleep apnea (adult) (pediatric) Chronic pain disorder Chronic pain syndrome Gastroesophageal reflux disease, unspecified whether esophagitis present Overactive bladder Hypertonicity of bladder Lower extremity edema Edema Pre-diabetes Other abnormal glucose Morbid obesity ([facility]) Morbid obesity Yeast infection of the skin Candidiasis of skin and nails Tobacco dependence Tobacco use disorder Mood disorder ([facility]) Unspecified episodic mood disorder Primary hypertension ([facility]) Unspecified essential hypertension Left hip pain Pain in joint, pelvic region and thigh Open wound of anterior abdominal wall, initial encounter Primary hypertension ([facility])- Primary Unspecified essential hypertension Yeast infection of the skin Candidiasis of skin and nails Morbid obesity (CMS/HCC) Morbid obesity Primary hypertension ([facility]/HCC)- Primary Unspecified essential hypertension Encounter for screening mammogram for malignant neoplasm of breast Gastroesophageal reflux disease, unspecified whether esophagitis present Acute gout of right foot, unspecified cause Osteoporosis, unspecified osteoporosis type, unspecified pathological fracture presence ([facility]) Morbid obesity ([facility]) Morbid obesity Pre-diabetes Other abnormal glucose Anemia, unspecified type Vitamin deficiency Unspecified vitamin deficiency Post-viral cough syndrome Primary hypertension ([facility])- Primary Unspecified essential hypertension Allergic rhinitis, unspecified Acute cough Morbid obesity ([facility]) Morbid obesity Former cigarette smoker Personal history of tobacco use, presenting hazards to health Toxic metabolic encephalopathy- Primary Hemiparesis, right ([facility]) Unspecified hemiplegia affecting unspecified side Acute respiratory failure with hypoxia ([facility]) Heart murmur Undiagnosed cardiac murmurs Primary hypertension ([facility] Unspecified essential hypertension Morbid obesity ([facility]) Morbid obesity Bipolar disorder with severe depression ([facility]) Slurred speech Other speech disturbance Bilateral lower extremity edema- Primary Primary hypertension ([facility]) Unspecified essential hypertension Lower extremity edema Edema Essential (primary) hypertension ([facility]) Unspecified essential hypertension Gastro-esophageal reflux disease without esophagitis Allergic rhinitis, unspecified Bilateral lower extremity edema- Primary Morbid (severe) obesity due to excess calories ([facility]) Body mass index (BMI) 45.0-49.9, adult ([facility]) Pre-diabetes Other abnormal glucose Bilateral lower extremity edema- Primary Essential (primary) hypertension ([facility]) Unspecified essential hypertension Allergic rhinitis, unspecified OSMANY (obstructive sleep apnea) Obstructive sleep apnea (adult) (pediatric) Primary hypertension ([facility]) Unspecified essential hypertension Morbid obesity ([facility]) Morbid obesity Acute cystitis without hematuria- Primary Tobacco dependence Tobacco use disorder Needs flu shot Need for prophylactic vaccination and inoculation against influenza Morbid obesity ([facility]) Morbid obesity Well woman exam with routine gynecological exam- Primary Routine gynecological examination Morbid obesity ([facility]) Morbid obesity Essential (primary) hypertension ([facility]) Unspecified essential hypertension Allergic rhinitis, unspecified documented in this encounter [facility] HealthcareEvaluation note* Diagnosis Left foot pain- Primary Pain in soft tissues of limb Primary hypertension ([facility]) Unspecified essential hypertension Class 3 severe obesity due to excess calories without serious comorbidity with body mass index (BMI) of 45.0 to 49.9 in adult ([facility]) Encounter for annual wellness visit (AWV) in Medicare patient- Primary OSMANY (obstructive sleep apnea) Obstructive sleep apnea (adult) (pediatric) Chronic pain disorder Chronic pain syndrome Gastroesophageal reflux disease, unspecified whether esophagitis present Overactive bladder Hypertonicity of bladder Lower extremity edema Edema Pre-diabetes Other abnormal glucose Morbid obesity ([facility]) Morbid obesity Yeast infection of the skin Candidiasis of skin and nails Tobacco dependence Tobacco use disorder Mood disorder ([facility]) Unspecified episodic mood disorder Primary hypertension ([facility]) Unspecified essential hypertension Left hip pain Pain in joint, pelvic region and thigh Open wound of anterior abdominal wall, initial encounter Primary hypertension ([facility])- Primary Unspecified essential hypertension Yeast infection of the skin Candidiasis of skin and nails Morbid obesity ([facility]) Morbid obesity Primary hypertension ([facility])- Primary Unspecified essential hypertension Encounter for screening mammogram for malignant neoplasm of breast Gastroesophageal reflux disease, unspecified whether esophagitis present Acute gout of right foot, unspecified cause Osteoporosis, unspecified osteoporosis type, unspecified pathological fracture presence ([facility]) Morbid obesity ([facility]) Morbid obesity Pre-diabetes Other abnormal glucose Anemia, unspecified type Vitamin deficiency Unspecified vitamin deficiency Post-viral cough syndrome Primary hypertension ([facility])- Primary Unspecified essential hypertension Allergic rhinitis, unspecified Acute cough Morbid obesity ([facility]) Morbid obesity Former cigarette smoker Personal history of tobacco use, presenting hazards to health Toxic metabolic encephalopathy- Primary Hemiparesis, right ([facility]) Unspecified hemiplegia affecting unspecified side Acute respiratory failure with hypoxia ([facility]) Heart murmur Undiagnosed cardiac murmurs Primary hypertension ([facility] Unspecified essential hypertension Morbid obesity ([facility]) Morbid obesity Bipolar disorder with severe depression ([facility]) Slurred speech Other speech disturbance Bilateral lower extremity edema- Primary Primary hypertension ([facility]) Unspecified essential hypertension Lower extremity edema Edema Essential (primary) hypertension ([facility]) Unspecified essential hypertension Gastro-esophageal reflux disease without esophagitis Allergic rhinitis, unspecified Bilateral lower extremity edema- Primary Morbid (severe) obesity due to excess calories ([facility]) Body mass index (BMI) 45.0-49.9, adult ([facility]) Pre-diabetes Other abnormal glucose Bilateral lower extremity edema- Primary Essential (primary) hypertension ([facility]/HCC) Unspecified essential hypertension Allergic rhinitis, unspecified OSMANY (obstructive sleep apnea) Obstructive sleep apnea (adult) (pediatric) Primary hypertension ([facility]) Unspecified essential hypertension Morbid obesity ([facility]) Morbid obesity Acute cystitis without hematuria- Primary Tobacco dependence Tobacco use disorder Needs flu shot Need for prophylactic vaccination and inoculation against influenza Morbid obesity (CMS/HCC) Morbid obesity Well woman exam with routine gynecological exam- Primary Routine gynecological examination Morbid obesity ([facility]/HCC) Morbid obesity Allergic rhinitis, unspecified documented in this encounter [facility] HealthcareEvaluation note* Diagnosis Left foot pain- Primary Pain in soft tissues of limb Primary hypertension ([facility]) Unspecified essential hypertension Class 3 severe obesity due to excess calories without serious comorbidity with body mass index (BMI) of 45.0 to 49.9 in adult ([facility]) Encounter for annual wellness visit (AWV) in Medicare patient- Primary OSMANY (obstructive sleep apnea) Obstructive sleep apnea (adult) (pediatric) Chronic pain disorder Chronic pain syndrome Gastroesophageal reflux disease, unspecified whether esophagitis present Overactive bladder Hypertonicity of bladder Lower extremity edema Edema Pre-diabetes Other abnormal glucose Morbid obesity ([facility]) Morbid obesity Yeast infection of the skin Candidiasis of skin and nails Tobacco dependence Tobacco use disorder Mood disorder ([facility] Unspecified episodic mood disorder Primary hypertension ([facility]) Unspecified essential hypertension Left hip pain Pain in joint, pelvic region and thigh Open wound of anterior abdominal wall, initial encounter Primary hypertension ([facility])- Primary Unspecified essential hypertension Yeast infection of the skin Candidiasis of skin and nails Morbid obesity ([facility]) Morbid obesity Primary hypertension ([facility])- Primary Unspecified essential hypertension Encounter for screening mammogram for malignant neoplasm of breast Gastroesophageal reflux disease, unspecified whether esophagitis present Acute gout of right foot, unspecified cause Osteoporosis, unspecified osteoporosis type, unspecified pathological fracture presence ([facility]) Morbid obesity ([facility]) Morbid obesity Pre-diabetes Other abnormal glucose Anemia, unspecified type Vitamin deficiency Unspecified vitamin deficiency Post-viral cough syndrome Primary hypertension ([facility])- Primary Unspecified essential hypertension Allergic rhinitis, unspecified Acute cough Morbid obesity ([facility]) Morbid obesity Former cigarette smoker Personal history of tobacco use, presenting hazards to health Toxic metabolic encephalopathy- Primary Hemiparesis, right ([facility]) Unspecified hemiplegia affecting unspecified side Acute respiratory failure with hypoxia ([facility] Heart murmur Undiagnosed cardiac murmurs Primary hypertension ([facility] Unspecified essential hypertension Morbid obesity ([facility]) Morbid obesity Bipolar disorder with severe depression ([facility]) Slurred speech Other speech disturbance Bilateral lower extremity edema- Primary Primary hypertension ([facility]) Unspecified essential hypertension Lower extremity edema Edema Essential (primary) hypertension ([facility]) Unspecified essential hypertension Gastro-esophageal reflux disease without esophagitis Allergic rhinitis, unspecified Bilateral lower extremity edema- Primary Morbid (severe) obesity due to excess calories ([facility]) Body mass index (BMI) 45.0-49.9, adult ([facility]) Pre-diabetes Other abnormal glucose Bilateral lower extremity edema- Primary Essential (primary) hypertension ([facility]) Unspecified essential hypertension Allergic rhinitis, unspecified OSMANY (obstructive sleep apnea) Obstructive sleep apnea (adult) (pediatric) Primary hypertension ([facility]) Unspecified essential hypertension Morbid obesity ([facility]) Morbid obesity Acute cystitis without hematuria- Primary Tobacco dependence Tobacco use disorder Needs flu shot Need for prophylactic vaccination and inoculation against influenza Morbid obesity ([facility]) Morbid obesity Well woman exam with routine gynecological exam- Primary Routine gynecological examination Morbid obesity ([facility]) Morbid obesity Yeast infection of the skin Candidiasis of skin and nails documented in this encounter [facility] HealthcareEvaluation note* Diagnosis Left foot pain- Primary Pain in soft tissues of limb Primary hypertension ([facility]) Unspecified essential hypertension Class 3 severe obesity due to excess calories without serious comorbidity with body mass index (BMI) of 45.0 to 49.9 in adult ([facility]) Encounter for annual wellness visit (AWV) in Medicare patient- Primary OSMANY (obstructive sleep apnea) Obstructive sleep apnea (adult) (pediatric) Chronic pain disorder Chronic pain syndrome Gastroesophageal reflux disease, unspecified whether esophagitis present Overactive bladder Hypertonicity of bladder Lower extremity edema Edema Pre-diabetes Other abnormal glucose Morbid obesity ([facility]) Morbid obesity Yeast infection of the skin Candidiasis of skin and nails Tobacco dependence Tobacco use disorder Mood disorder ([facility] Unspecified episodic mood disorder Primary hypertension ([facility]) Unspecified essential hypertension Left hip pain Pain in joint, pelvic region and thigh Open wound of anterior abdominal wall, initial encounter Primary hypertension ([facility])- Primary Unspecified essential hypertension Yeast infection of the skin Candidiasis of skin and nails Morbid obesity ([facility] Morbid obesity Primary hypertension ([facility]/HCC)- Primary Unspecified essential hypertension Encounter for screening mammogram for malignant neoplasm of breast Gastroesophageal reflux disease, unspecified whether esophagitis present Acute gout of right foot, unspecified cause Osteoporosis, unspecified osteoporosis type, unspecified pathological fracture presence ([facility]) Morbid obesity ([facility]) Morbid obesity Pre-diabetes Other abnormal glucose Anemia, unspecified type Vitamin deficiency Unspecified vitamin deficiency Post-viral cough syndrome Primary hypertension ([facility])- Primary Unspecified essential hypertension Allergic rhinitis, unspecified Acute cough Morbid obesity ([facility]) Morbid obesity Former cigarette smoker Personal history of tobacco use, presenting hazards to health Toxic metabolic encephalopathy- Primary Hemiparesis, right ([facility]) Unspecified hemiplegia affecting unspecified side Acute respiratory failure with hypoxia ([facility] Heart murmur Undiagnosed cardiac murmurs Primary hypertension ([facility] Unspecified essential hypertension Morbid obesity ([facility]) Morbid obesity Bipolar disorder with severe depression ([facility]) Slurred speech Other speech disturbance Bilateral lower extremity edema- Primary Primary hypertension ([facility]) Unspecified essential hypertension Lower extremity edema Edema Essential (primary) hypertension ([facility]) Unspecified essential hypertension Gastro-esophageal reflux disease without esophagitis Allergic rhinitis, unspecified Bilateral lower extremity edema- Primary Morbid (severe) obesity due to excess calories ([facility]) Body mass index (BMI) 45.0-49.9, adult ([facility]) Pre-diabetes Other abnormal glucose Bilateral lower extremity edema- Primary Essential (primary) hypertension ([facility]) Unspecified essential hypertension Allergic rhinitis, unspecified OSMANY (obstructive sleep apnea) Obstructive sleep apnea (adult) (pediatric) Primary hypertension ([facility]) Unspecified essential hypertension Morbid obesity ([facility]) Morbid obesity Acute cystitis without hematuria- Primary Tobacco dependence Tobacco use disorder Needs flu shot Need for prophylactic vaccination and inoculation against influenza Morbid obesity ([facility]/HCC) Morbid obesity Well woman exam with routine gynecological exam- Primary Routine gynecological examination Morbid obesity ([facility]/HCC) Morbid obesity Metabolic encephalopathy- Primary OSMANY (obstructive sleep apnea) Obstructive sleep apnea (adult) (pediatric) Restless leg Restless legs syndrome (RLS) 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 ([facility]) Degeneration of intervertebral disc of lumbar region with discogenic back pain and lower extremity pain Memory change Memory loss documented in this encounter [facility]* Diagnosis Left foot pain- Primary Pain in soft tissues of limb Primary hypertension ([facility]) Unspecified essential hypertension Class 3 severe obesity due to excess calories without serious comorbidity with body mass index (BMI) of 45.0 to 49.9 in adult ([facility]) Encounter for annual wellness visit (AWV) in Medicare patient- Primary OSMANY (obstructive sleep apnea) Obstructive sleep apnea (adult) (pediatric) Chronic pain disorder Chronic pain syndrome Gastroesophageal reflux disease, unspecified whether esophagitis present Overactive bladder Hypertonicity of bladder Lower extremity edema Edema Pre-diabetes Other abnormal glucose Morbid obesity ([facility]) Morbid obesity Yeast infection of the skin Candidiasis of skin and nails Tobacco dependence Tobacco use disorder Mood disorder ([facility] Unspecified episodic mood disorder Primary hypertension ([facility]) Unspecified essential hypertension Left hip pain Pain in joint, pelvic region and thigh Open wound of anterior abdominal wall, initial encounter Primary hypertension ([facility])- Primary Unspecified essential hypertension Yeast infection of the skin Candidiasis of skin and nails Morbid obesity ([facility]) Morbid obesity Primary hypertension ([facility])- Primary Unspecified essential hypertension Encounter for screening mammogram for malignant neoplasm of breast Gastroesophageal reflux disease, unspecified whether esophagitis present Acute gout of right foot, unspecified cause Osteoporosis, unspecified osteoporosis type, unspecified pathological fracture presence ([facility]) Morbid obesity ([facility]) Morbid obesity Pre-diabetes Other abnormal glucose Anemia, unspecified type Vitamin deficiency Unspecified vitamin deficiency Post-viral cough syndrome Primary hypertension ([facility])- Primary Unspecified essential hypertension Allergic rhinitis, unspecified Acute cough Morbid obesity ([facility]) Morbid obesity Former cigarette smoker Personal history of tobacco use, presenting hazards to health Toxic metabolic encephalopathy- Primary Hemiparesis, right ([facility]) Unspecified hemiplegia affecting unspecified side Acute respiratory failure with hypoxia ([facility]) Heart murmur Undiagnosed cardiac murmurs Primary hypertension ([facility] Unspecified essential hypertension Morbid obesity ([facility]) Morbid obesity Bipolar disorder with severe depression ([facility]) Slurred speech Other speech disturbance Bilateral lower extremity edema- Primary Primary hypertension ([facility]) Unspecified essential hypertension Lower extremity edema Edema Essential (primary) hypertension ([facility]) Unspecified essential hypertension Gastro-esophageal reflux disease without esophagitis Allergic rhinitis, unspecified Bilateral lower extremity edema- Primary Morbid (severe) obesity due to excess calories ([facility]) Body mass index (BMI) 45.0-49.9, adult ([facility]) Pre-diabetes Other abnormal glucose Bilateral lower extremity edema- Primary Essential (primary) hypertension ([facility]) Unspecified essential hypertension Allergic rhinitis, unspecified OSMANY (obstructive sleep apnea) Obstructive sleep apnea (adult) (pediatric) Primary hypertension ([facility]) Unspecified essential hypertension Morbid obesity ([facility]) Morbid obesity Acute cystitis without hematuria- Primary Tobacco dependence Tobacco use disorder Needs flu shot Need for prophylactic vaccination and inoculation against influenza Morbid obesity ([facility]) Morbid obesity Well woman exam with routine gynecological exam- Primary Routine gynecological examination Morbid obesity ([facility]) Morbid obesity Altered mental status, unspecified altered mental status type- Primary Restless leg Restless legs syndrome (RLS) 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[facility]) OSMANY (obstructive sleep apnea) Obstructive sleep apnea (adult) (pediatric) documented [facility] Diagnosis Left foot pain- Primary Pain in soft tissues of limb Primary hypertension ([facility]) Unspecified essential hypertension Class 3 severe obesity due to excess calories without serious comorbidity with body mass index (BMI) of 45.0 to 49.9 in adult ([facility]) Encounter for annual wellness visit (AWV) in Medicare patient- Primary OSMANY (obstructive sleep apnea) Obstructive sleep apnea (adult) (pediatric) Chronic pain disorder Chronic pain syndrome Gastroesophageal reflux disease, unspecified whether esophagitis present Overactive bladder Hypertonicity of bladder Lower extremity edema Edema Pre-diabetes Other abnormal glucose Morbid obesity ([facility]) Morbid obesity Yeast infection of the skin Candidiasis of skin and nails Tobacco dependence Tobacco use disorder Mood disorder ([facility]) Unspecified episodic mood disorder Primary hypertension ([facility]) Unspecified essential hypertension Left hip pain Pain in joint, pelvic region and thigh Open wound of anterior abdominal wall, initial encounter Primary hypertension ([facility])- Primary Unspecified essential hypertension Yeast infection of the skin Candidiasis of skin and nails Morbid obesity ([facility]) Morbid obesity Primary hypertension ([facility])- Primary Unspecified essential hypertension Encounter for screening mammogram for malignant neoplasm of breast Gastroesophageal reflux disease, unspecified whether esophagitis present Acute gout of right foot, unspecified cause Osteoporosis, unspecified osteoporosis type, unspecified pathological fracture presence ([facility]) Morbid obesity ([facility]) Morbid obesity Pre-diabetes Other abnormal glucose Anemia, unspecified type Vitamin deficiency Unspecified vitamin deficiency Post-viral cough syndrome Primary hypertension ([facility])- Primary Unspecified essential hypertension Allergic rhinitis, unspecified Acute cough Morbid obesity ([facility]) Morbid obesity Former cigarette smoker Personal history of tobacco use, presenting hazards to health Toxic metabolic encephalopathy- Primary Hemiparesis, right ([facility]) Unspecified hemiplegia affecting unspecified side Acute respiratory failure with hypoxia ([facility] Heart murmur Undiagnosed cardiac murmurs Primary hypertension ([facility] Unspecified essential hypertension Morbid obesity ([facility]) Morbid obesity Bipolar disorder with severe depression ([facility]) Slurred speech Other speech disturbance Bilateral lower extremity edema- Primary Primary hypertension ([facility]) Unspecified essential hypertension Lower extremity edema Edema Essential (primary) hypertension ([facility]) Unspecified essential hypertension Gastro-esophageal reflux disease without esophagitis Allergic rhinitis, unspecified Bilateral lower extremity edema- Primary Morbid (severe) obesity due to excess calories ([facility]) Body mass index (BMI) 45.0-49.9, adult ([facility]) Pre-diabetes Other abnormal glucose Bilateral lower extremity edema- Primary Essential (primary) hypertension ([facility]) Unspecified essential hypertension Allergic rhinitis, unspecified OSMANY (obstructive sleep apnea) Obstructive sleep apnea (adult) (pediatric) Primary hypertension ([facility]) Unspecified essential hypertension Morbid obesity ([facility]) Morbid obesity Acute cystitis without hematuria- Primary Tobacco dependence Tobacco use disorder Needs flu shot Need for prophylactic vaccination and inoculation against influenza Morbid obesity ([facility]) Morbid obesity Well woman exam with routine gynecological exam- Primary Routine gynecological examination Morbid obesity ([facility]) Morbid obesity Altered mental status, unspecified altered mental status type- Primary Memory change Memory loss Concentration deficit 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 ([facility]) PTSD (post-traumatic stress disorder) ([facility]) Posttraumatic stress disorder Bipolar affective disorder, remission status unspecified ([facility]) Family history of dementia Family [...] Edema Pre-diabetes Other abnormal glucose Morbid obesity ([facility]) Morbid obesity Yeast infection of the skin Candidiasis of skin and nails Tobacco dependence Tobacco use disorder Mood disorder ([facility]) Unspecified episodic mood disorder Primary hypertension ([facility]) Unspecified essential hypertension Left hip pain Pain in joint, pelvic region and thigh Open wound of anterior abdominal wall, initial encounter Primary hypertension ([facility])- Primary Unspecified essential hypertension Yeast infection of the skin Candidiasis of skin and nails Morbid obesity ([facility]) Morbid obesity Primary hypertension ([facility])- Primary Unspecified essential hypertension Allergic rhinitis, unspecified Acute cough Morbid obesity ([facility]) Morbid obesity Former cigarette smoker Personal history of tobacco use, presenting hazards to health Toxic metabolic encephalopathy- Primary Hemiparesis, right ([facility]) Unspecified hemiplegia affecting unspecified side Acute respiratory failure with hypoxia ([facility] Heart murmur Undiagnosed cardiac murmurs Primary hypertension ([facility] Unspecified essential hypertension Morbid obesity ([facility] Morbid obesity Bipolar disorder with severe depression ([facility]) Slurred speech Other speech disturbance Bilateral lower extremity edema- Primary Primary hypertension ([facility]) Unspecified essential hypertension Lower extremity edema Edema Essential (primary) hypertension ([facility]) Unspecified essential hypertension Gastro-esophageal reflux disease without esophagitis Allergic rhinitis, unspecified Bilateral lower extremity edema- Primary Morbid (severe) obesity due to excess calories ([facility]) Body mass index (BMI) 45.0-49.9, adult ([facility]) Pre-diabetes Other abnormal glucose Bilateral lower extremity edema- Primary Essential (primary) hypertension ([facility]) Unspecified essential hypertension Allergic rhinitis, unspecified OSMANY (obstructive sleep apnea) Obstructive sleep apnea (adult) (pediatric) Primary hypertension ([facility]) Unspecified essential hypertension Morbid obesity ([facility]) Morbid obesity Acute cystitis without hematuria- Primary Tobacco dependence Tobacco use disorder Needs flu shot Need for prophylactic vaccination and inoculation against influenza Morbid obesity ([facility]) Morbid obesity Well woman exam with routine gynecological exam- Primary Routine gynecological examination Morbid obesity ([facility]) Morbid obesity Restless leg Restless legs syndrome (RLS) Metabolic encephalopathy- Primary OSMANY (obstructive sleep apnea) Obstructive sleep apnea (adult) (pediatric) Morbid obesity ([facility]) Morbid obesity Bilateral lower extremity edema Tobacco dependence Tobacco use disorder Bipolar disorder with severe depression ([facility]) At risk for polypharmacy Anxiety [...] Edema Pre-diabetes Other abnormal glucose Morbid obesity ([facility]) Morbid obesity Yeast infection of the skin Candidiasis of skin and nails Tobacco dependence Tobacco use disorder Mood disorder ([facility]) Unspecified episodic mood disorder Primary hypertension ([facility]) Unspecified essential hypertension Left hip pain Pain in joint, pelvic region and thigh Open wound of anterior abdominal wall, initial encounter Primary hypertension ([facility])- Primary Unspecified essential hypertension Yeast infection of the skin Candidiasis of skin and nails Morbid obesity ([facility]) Morbid obesity Primary hypertension ([facility])- Primary Unspecified essential hypertension Allergic rhinitis, unspecified Acute cough Morbid obesity ([facility]) Morbid obesity Former cigarette smoker Personal history of tobacco use, presenting hazards to health Toxic metabolic encephalopathy- Primary Hemiparesis, right ([facility]) Unspecified hemiplegia affecting unspecified side Acute respiratory failure with hypoxia ([facility] Heart murmur Undiagnosed cardiac murmurs Primary hypertension ([facility] Unspecified essential hypertension Morbid obesity ([facility]) Morbid obesity Bipolar disorder with severe depression ([facility]) Slurred speech Other speech disturbance Bilateral lower extremity edema- Primary Primary hypertension ([facility]) Unspecified essential hypertension Lower extremity edema Edema Essential (primary) hypertension ([facility]) Unspecified essential hypertension Gastro-esophageal reflux disease without esophagitis Allergic rhinitis, unspecified Bilateral lower extremity edema- Primary Morbid (severe) obesity due to excess calories ([facility]) Body mass index (BMI) 45.0-49.9, adult ([facility]) Pre-diabetes Other abnormal glucose Bilateral lower extremity edema- Primary Essential (primary) hypertension ([facility]) Unspecified essential hypertension Allergic rhinitis, unspecified OSMANY (obstructive sleep apnea) Obstructive sleep apnea (adult) (pediatric) Primary hypertension ([facility]) Unspecified essential hypertension Morbid obesity ([facility]) Morbid obesity Acute cystitis without hematuria- Primary Tobacco dependence Tobacco use disorder Needs flu shot Need for prophylactic vaccination and inoculation against influenza Morbid obesity ([facility]) Morbid obesity Well woman exam with routine gynecological exam- Primary Routine gynecological examination Morbid obesity (CMS/HCC) Morbid obesity Metabolic encephalopathy- Primary OSMANY (obstructive sleep apnea) Obstructive sleep apnea (adult) (pediatric) Morbid obesity ([facility]) Morbid obesity Bilateral lower extremity edema Tobacco dependence Tobacco use disorder Bipolar disorder with severe depression ([facility]) At risk for polypharmacy Anxiety Anxiety state, unspecified Primary hypertension ([facility]) Unspecified essential hypertension Right bundle branch block (RBBB) determined by electrocardiography documented [facility] Diagnosis Yeast infection of the skin- Primary Candidiasis of skin and nails documented in this encounter [facility]* Diagnosis 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[facility])- Primary Restless leg Restless legs syndrome (RLS) Metabolic encephalopathy documented in this [facility]* Diagnosis OSMANY (obstructive sleep apnea)- Primary Obstructive sleep apnea (adult) (pediatric) Restless leg Restless legs syndrome (RLS) documented in this [facility]* Diagnosis Bilateral lower extremity edema- Primary Essential (primary) hypertension ([facility]) Unspecified essential hypertension Allergic rhinitis, unspecified OSMANY (obstructive sleep apnea) Obstructive sleep apnea (adult) (pediatric) Primary hypertension ([facility]) Unspecified essential hypertension Morbid obesity ([facility]) Morbid obesity documented in this [...] Edema Pre-diabetes Other abnormal glucose Morbid obesity ([facility]) Morbid obesity Yeast infection of the skin Candidiasis of skin and nails Tobacco dependence Tobacco use disorder Mood disorder ([facility]) Unspecified episodic mood disorder Primary hypertension ([facility]) Unspecified essential hypertension Left hip pain Pain in joint, pelvic region and thigh Open wound of anterior abdominal wall, initial encounter Primary hypertension ([facility])- Primary Unspecified essential hypertension Yeast infection of the skin Candidiasis of skin and nails Morbid obesity ([facility]) Morbid obesity Primary hypertension ([facility])- Primary Unspecified essential hypertension Allergic rhinitis, unspecified Acute cough Morbid obesity ([facility]) Morbid obesity Former cigarette smoker Personal history of tobacco use, presenting hazards to health Toxic metabolic encephalopathy- Primary Hemiparesis, right ([facility]) Unspecified hemiplegia affecting unspecified side Acute respiratory failure with hypoxia ([facility] Heart murmur Undiagnosed cardiac murmurs Primary hypertension ([facility] Unspecified essential hypertension Morbid obesity ([facility]) Morbid obesity Bipolar disorder with severe depression ([facility]) Slurred speech Other speech disturbance Bilateral lower extremity edema- Primary Primary hypertension ([facility]) Unspecified essential hypertension Lower extremity edema Edema Essential (primary) hypertension ([facility]) Unspecified essential hypertension Gastro-esophageal reflux disease without esophagitis Allergic rhinitis, unspecified Bilateral lower extremity edema- Primary Morbid (severe) obesity due to excess calories ([facility]) Body mass index (BMI) 45.0-49.9, adult ([facility]) Pre-diabetes Other abnormal glucose Bilateral lower extremity edema- Primary Essential (primary) hypertension ([facility]) Unspecified essential hypertension Allergic rhinitis, unspecified OSMANY (obstructive sleep apnea) Obstructive sleep apnea (adult) (pediatric) Primary hypertension ([facility]) Unspecified essential hypertension Morbid obesity ([facility]) Morbid obesity Acute cystitis without hematuria- Primary Tobacco dependence Tobacco use disorder Needs flu shot Need for prophylactic vaccination and inoculation against influenza Morbid obesity ([facility]) Morbid obesity Well woman exam with routine gynecological exam- Primary Routine gynecological examination Morbid obesity ([facility]) Morbid obesity Metabolic encephalopathy- Primary OSMANY (obstructive sleep apnea) Obstructive sleep apnea (adult) (pediatric) Morbid obesity ([facility]) Morbid obesity Bilateral lower extremity edema Tobacco dependence Tobacco use disorder Bipolar disorder with severe depression ([facility] [facility]) At risk for polypharmacy Anxiety Anxiety state, unspecified Primary hypertension ([facility]) Unspecified essential hypertension Right bundle branch block (RBBB) determined by electrocardiography Metabolic encephalopathy- Primary Memory change Memory loss Altered mental status, unspecified altered mental status type Concentration deficit PTSD (post-traumatic stress disorder) ([facility]) Posttraumatic stress disorder Bipolar affective disorder, remission status unspecified ([facility]) Family history of dementia Family history of other neurological diseases 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[facility]) OSMANY (obstructive sleep apnea) Obstructive [...] Edema Pre-diabetes Other abnormal glucose Morbid obesity ([facility]) Morbid obesity Yeast infection of the skin Candidiasis of skin and nails Tobacco dependence Tobacco use disorder Mood disorder (CMS/HCC) Unspecified episodic mood disorder Primary hypertension ([facility]/HCC) Unspecified essential hypertension Left hip pain Pain in joint, pelvic region and thigh Open wound of anterior abdominal wall, initial encounter Primary hypertension (CMS/HCC)- Primary Unspecified essential hypertension Yeast infection of the skin Candidiasis of skin and nails Morbid obesity (CMS/HCC) Morbid obesity Primary hypertension (CMS/HCC)- Primary Unspecified essential hypertension Allergic rhinitis, unspecified Acute cough Morbid obesity ([facility]) Morbid obesity Former cigarette smoker Personal history of tobacco use, presenting hazards to health Toxic metabolic encephalopathy- Primary Hemiparesis, right (CMS/[facility]) Unspecified hemiplegia affecting unspecified side Acute respiratory failure with hypoxia ([facility]) Heart murmur Undiagnosed cardiac murmurs Primary hypertension ([facility]) Unspecified essential hypertension Morbid obesity ([facility] Morbid obesity Bipolar disorder with severe depression ([facility]) Slurred speech Other speech disturbance Bilateral lower extremity edema- Primary Primary hypertension ([facility]/HCC) Unspecified essential hypertension Lower extremity edema Edema Essential (primary) hypertension ([facility]) Unspecified essential hypertension Gastro-esophageal reflux disease without esophagitis Allergic rhinitis, unspecified Bilateral lower extremity edema- Primary Morbid (severe) obesity due to excess calories ([facility]) Body mass index (BMI) 45.0-49.9, adult ([facility]) Pre-diabetes Other abnormal glucose Bilateral lower extremity edema- Primary Essential (primary) hypertension ([facility]) Unspecified essential hypertension Allergic rhinitis, unspecified OSMANY (obstructive sleep apnea) Obstructive sleep apnea (adult) (pediatric) Primary hypertension ([facility]) Unspecified essential hypertension Morbid obesity ([facility]) Morbid obesity Acute cystitis without hematuria- Primary Tobacco dependence Tobacco use disorder Needs flu shot Need for prophylactic vaccination and inoculation against influenza Morbid obesity (CMS/HCC) Morbid obesity Well woman exam with routine gynecological exam- Primary Routine gynecological examination Morbid obesity ([facility]/HCC) Morbid obesity Metabolic encephalopathy- Primary OSMANY (obstructive sleep apnea) Obstructive sleep apnea (adult) (pediatric) Morbid obesity ([facility]/HCC) Morbid obesity Bilateral lower extremity edema Tobacco dependence Tobacco use disorder Bipolar disorder with severe depression ([facility]) At risk for polypharmacy Anxiety Anxiety state, unspecified Primary hypertension ([facility]/HCC) Unspecified essential hypertension Right bundle branch block (RBBB) determined by electrocardiography Transient alteration of awareness- Primary Restless leg Restless legs syndrome (RLS) documented in this encounter [facility] HealthcareEvaluation note* Diagnosis Encounter for annual [...] (CMS/HCC) Unspecified episodic mood disorder Primary hypertension ([facility]) Unspecified essential hypertension Left hip pain Pain in joint, pelvic region and thigh Open wound of anterior abdominal wall, initial encounter Primary hypertension ([facility]/HCC)- Primary Unspecified essential hypertension Yeast infection of the skin Candidiasis of skin and nails Morbid obesity ([facility]/HCC) Morbid obesity Primary hypertension ([facility])- Primary Unspecified essential hypertension Allergic rhinitis, unspecified Acute cough Morbid obesity ([facility]) Morbid obesity Former cigarette smoker Personal history of tobacco use, presenting hazards to health Toxic metabolic encephalopathy- Primary Hemiparesis, right ([facility]) Unspecified hemiplegia affecting unspecified side Acute respiratory failure with hypoxia ([facility] Heart murmur Undiagnosed cardiac murmurs Primary hypertension ([facility] Unspecified essential hypertension Morbid obesity ([facility] Morbid obesity Bipolar disorder with severe depression ([facility]) Slurred speech Other speech disturbance Bilateral lower extremity edema- Primary Primary hypertension ([facility]) Unspecified essential hypertension Lower extremity edema Edema Essential (primary) hypertension ([facility]) Unspecified essential hypertension Gastro-esophageal reflux disease without esophagitis Allergic rhinitis, unspecified Bilateral lower extremity edema- Primary Morbid (severe) obesity due to excess calories ([facility]) Body mass index (BMI) 45.0-49.9, adult ([facility]) Pre-diabetes Other abnormal glucose Bilateral lower extremity edema- Primary Essential (primary) hypertension ([facility]/HCC) Unspecified essential hypertension Allergic rhinitis, unspecified OSMANY (obstructive sleep apnea) Obstructive sleep apnea (adult) (pediatric) Primary hypertension ([facility]/HCC) Unspecified essential hypertension Morbid obesity ([facility]) Morbid obesity Acute cystitis without hematuria- Primary Tobacco dependence Tobacco use disorder Needs flu shot Need for prophylactic vaccination and inoculation against influenza Morbid obesity (CMS/HCC) Morbid obesity Well woman exam with routine gynecological exam- Primary Routine gynecological examination Morbid obesity (CMS/HCC) Morbid obesity Metabolic encephalopathy- Primary OSMANY (obstructive sleep apnea) Obstructive sleep apnea (adult) (pediatric) Morbid obesity ([facility]/HCC) Morbid obesity Bilateral lower extremity edema Tobacco dependence Tobacco use disorder Bipolar disorder with severe depression ([facility]) At risk for polypharmacy Anxiety Anxiety state, unspecified Primary hypertension ([facility]) Unspecified essential hypertension Right bundle branch block (RBBB) determined by electrocardiography Primary hypertension ([facility])- Primary Unspecified essential hypertension Chronic kidney disease, stage 3a (HCC) ([facility]) Morbid (severe) obesity due to excess calories ([facility]) Body mass index (BMI) 45.0-49.9, adult ([facility]) OSMANY (obstructive sleep apnea) Obstructive sleep apnea (adult) (pediatric) Hemiparesis, right ([facility]) Unspecified hemiplegia affecting unspecified side Gastroesophageal reflux disease, unspecified whether esophagitis present Metabolic encephalopathy Essential (primary) hypertension ([facility]) Unspecified essential hypertension Allergic rhinitis, unspecified Gastro-esophageal reflux disease without esophagitis Bilateral lower extremity edema documented in this encounter [facility] HealthcareEvaluation note* Diagnosis Encounter for annual wellness visit (AWV) in Medicare patient- Primary OSMANY (obstructive sleep apnea) Obstructive sleep apnea (adult) (pediatric) Chronic pain disorder Chronic pain syndrome Gastroesophageal reflux disease, unspecified whether esophagitis present Overactive bladder Hypertonicity of bladder Lower extremity edema Edema Pre-diabetes Other abnormal glucose Morbid obesity ([facility]) Morbid obesity Yeast infection of the skin Candidiasis of skin and nails Tobacco dependence Tobacco use disorder Mood disorder ([facility]) Unspecified episodic mood disorder Primary hypertension ([facility]) Unspecified essential hypertension Left hip pain Pain in joint, pelvic region and thigh Open wound of anterior abdominal wall, initial encounter Primary hypertension ([facility]/HCC)- Primary Unspecified essential hypertension Yeast infection of the skin Candidiasis of skin and nails Morbid obesity ([facility]/HCC) Morbid obesity Primary hypertension ([facility]/HCC)- Primary Unspecified essential hypertension Allergic rhinitis, unspecified Acute cough Morbid obesity ([facility]) Morbid obesity Former cigarette smoker Personal history of tobacco use, presenting hazards to health Toxic metabolic encephalopathy- Primary Hemiparesis, right ([facility]) Unspecified hemiplegia affecting unspecified side Acute respiratory failure with hypoxia ([facility]) Heart murmur Undiagnosed cardiac murmurs Primary hypertension ([facility]) Unspecified essential hypertension Morbid obesity ([facility]) Morbid obesity Bipolar disorder with severe depression ([facility]) Slurred speech Other speech disturbance Bilateral lower extremity edema- Primary Primary hypertension ([facility]) Unspecified essential hypertension Lower extremity edema Edema Essential (primary) hypertension ([facility]) Unspecified essential hypertension Gastro-esophageal reflux disease without esophagitis Allergic rhinitis, unspecified Bilateral lower extremity edema- Primary Morbid (severe) obesity due to excess calories ([facility]) Body mass index (BMI) 45.0-49.9, adult ([facility]) Pre-diabetes Other abnormal glucose Bilateral lower extremity edema- Primary Essential (primary) hypertension ([facility]) Unspecified essential hypertension Allergic rhinitis, unspecified OSMANY (obstructive sleep apnea) Obstructive sleep apnea (adult) (pediatric) Primary hypertension ([facility]) Unspecified essential hypertension Morbid obesity ([facility]) Morbid obesity Acute cystitis without hematuria- Primary Tobacco dependence Tobacco use disorder Needs flu shot Need for prophylactic vaccination and inoculation against influenza Morbid obesity ([facility]) Morbid obesity Well woman exam with routine gynecological exam- Primary Routine gynecological examination Morbid obesity ([facility]) Morbid obesity Metabolic encephalopathy- Primary OSMANY (obstructive sleep apnea) Obstructive sleep apnea (adult) (pediatric) Morbid obesity ([facility]) Morbid obesity Bilateral lower extremity edema Tobacco dependence Tobacco use disorder Bipolar disorder with severe depression ([facility]) At risk for polypharmacy Anxiety Anxiety state, unspecified Primary hypertension ([facility]) Unspecified essential hypertension Right bundle branch block (RBBB) determined by electrocardiography Primary hypertension ([facility])- Primary Unspecified essential hypertension Chronic kidney disease, stage 3a (HCC) ([facility]) Morbid (severe) obesity due to excess calories ([facility]) Body mass index (BMI) 45.0-49.9, adult ([facility]) OSMANY (obstructive sleep apnea) Obstructive sleep apnea (adult) (pediatric) Hemiparesis, right ([facility]) Unspecified hemiplegia affecting unspecified side Gastroesophageal reflux disease, unspecified whether esophagitis present Metabolic encephalopathy Essential (primary) hypertension ([facility]) Unspecified essential hypertension Allergic rhinitis, unspecified Gastro-esophageal reflux disease without esophagitis Bilateral lower extremity edema 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 ([facility])- Primary OSMANY (obstructive sleep apnea) Obstructive sleep apnea (adult) (pediatric) Metabolic encephalopathy Restless leg Restless legs syndrome (RLS) Degeneration of intervertebral disc of lumbar region with discogenic back pain and lower extremity pain documented in this encounter [facility] HealthcareEvaluation note* Diagnosis Encounter for annual wellness visit (AWV) in Medicare patient- Primary OSMANY (obstructive sleep apnea) Obstructive sleep apnea (adult) (pediatric) Chronic pain disorder Chronic pain syndrome Gastroesophageal reflux disease, unspecified whether esophagitis present Overactive bladder Hypertonicity of bladder Lower extremity edema Edema Pre-diabetes Other abnormal glucose Morbid obesity ([facility]/HCC) Morbid obesity Yeast infection of the skin Candidiasis of skin and nails Tobacco dependence Tobacco use disorder Mood disorder (CMS/HCC) Unspecified episodic mood disorder Primary hypertension ([facility]) Unspecified essential hypertension Left hip pain Pain in joint, pelvic region and thigh Open wound of anterior abdominal wall, initial encounter Primary hypertension ([facility]/HCC)- Primary Unspecified essential hypertension Yeast infection of the skin Candidiasis of skin and nails Morbid obesity ([facility]/HCC) Morbid obesity Primary hypertension ([facility])- Primary Unspecified essential hypertension Allergic rhinitis, unspecified Acute cough Morbid obesity ([facility]) Morbid obesity Former cigarette smoker Personal history of tobacco use, presenting hazards to health Toxic metabolic encephalopathy- Primary Hemiparesis, right ([facility]) Unspecified hemiplegia affecting unspecified side Acute respiratory failure with hypoxia ([facility]) Heart murmur Undiagnosed cardiac murmurs Primary hypertension ([facility] Unspecified essential hypertension Morbid obesity ([facility]) Morbid obesity Bipolar disorder with severe depression ([facility]) Slurred speech Other speech disturbance Bilateral lower extremity edema- Primary Primary hypertension ([facility]) Unspecified essential hypertension Lower extremity edema Edema Essential (primary) hypertension ([facility]) Unspecified essential hypertension Gastro-esophageal reflux disease without esophagitis Allergic rhinitis, unspecified Bilateral lower extremity edema- Primary Morbid (severe) obesity due to excess calories ([facility]) Body mass index (BMI) 45.0-49.9, adult ([facility]) Pre-diabetes Other abnormal glucose Bilateral lower extremity edema- Primary Essential (primary) hypertension ([facility]/HCC) Unspecified essential hypertension Allergic rhinitis, unspecified OSMANY (obstructive sleep apnea) Obstructive sleep apnea (adult) (pediatric) Primary hypertension ([facility]/HCC) Unspecified essential hypertension Morbid obesity ([facility]) Morbid obesity Acute cystitis without hematuria- Primary Tobacco dependence Tobacco use disorder Needs flu shot Need for prophylactic vaccination and inoculation against influenza Morbid obesity (CMS/HCC) Morbid obesity Well woman exam with routine gynecological exam- Primary Routine gynecological examination Morbid obesity ([facility]/HCC) Morbid obesity Metabolic encephalopathy- Primary OSMANY (obstructive sleep apnea) Obstructive sleep apnea (adult) (pediatric) Morbid obesity ([facility]/HCC) Morbid obesity Bilateral lower extremity edema Tobacco dependence Tobacco use disorder Bipolar disorder with severe depression ([facility]) At risk for polypharmacy Anxiety Anxiety state, unspecified Primary hypertension ([facility]) Unspecified essential hypertension Right bundle branch block (RBBB) determined by electrocardiography Primary hypertension ([facility])- Primary Unspecified essential hypertension Chronic kidney disease, stage 3a (HCC) ([facility]) Morbid (severe) obesity due to excess calories ([facility]) Body mass index (BMI) 45.0-49.9, adult ([facility]) OSMANY (obstructive sleep apnea) Obstructive sleep apnea (adult) (pediatric) Hemiparesis, right ([facility]) Unspecified hemiplegia affecting unspecified side Gastroesophageal reflux disease, unspecified whether esophagitis present Metabolic encephalopathy Essential (primary) hypertension ([facility]) Unspecified essential hypertension Allergic rhinitis, unspecified Gastro-esophageal reflux disease without esophagitis Bilateral lower extremity edema Restless leg Restless legs syndrome (RLS) documented in this encounter [facility] HealthcareEvaluation note* Diagnosis Encounter for annual wellness visit (AWV) in Medicare patient- Primary OSMANY (obstructive sleep apnea) Obstructive sleep apnea (adult) (pediatric) Chronic pain disorder Chronic pain syndrome Gastroesophageal reflux disease, unspecified whether esophagitis present Overactive bladder Hypertonicity of bladder Lower extremity edema Edema Pre-diabetes Other abnormal glucose Morbid obesity ([facility]) Morbid obesity Yeast infection of the skin Candidiasis of skin and nails Tobacco dependence Tobacco use disorder Mood disorder ([facility]) Unspecified episodic mood disorder Primary hypertension ([facility]) Unspecified essential hypertension Left hip pain Pain in joint, pelvic region and thigh Open wound of anterior abdominal wall, initial encounter Primary hypertension ([facility]/HCC)- Primary Unspecified essential hypertension Yeast infection of the skin Candidiasis of skin and nails Morbid obesity ([facility]) Morbid obesity Primary hypertension ([facility])- Primary Unspecified essential hypertension Allergic rhinitis, unspecified Acute cough Morbid obesity ([facility]) Morbid obesity Former cigarette smoker Personal history of tobacco use, presenting hazards to health Toxic metabolic encephalopathy- Primary Hemiparesis, right ([facility] [facility]) Unspecified hemiplegia affecting unspecified side Acute respiratory failure with hypoxia ([facility]) Heart murmur Undiagnosed cardiac murmurs Primary hypertension ([facility]) Unspecified essential hypertension Morbid obesity ([facility]) Morbid obesity Bipolar disorder with severe depression ([facility]) Slurred speech Other speech disturbance Bilateral lower extremity edema- Primary Primary hypertension ([facility]) Unspecified essential hypertension Lower extremity edema Edema Essential (primary) hypertension ([facility]) Unspecified essential hypertension Gastro-esophageal reflux disease without esophagitis Allergic rhinitis, unspecified Bilateral lower extremity edema- Primary Morbid (severe) obesity due to excess calories ([facility]) Body mass index (BMI) 45.0-49.9, adult ([facility]) Pre-diabetes Other abnormal glucose Bilateral lower extremity edema- Primary Essential (primary) hypertension ([facility]) Unspecified essential hypertension Allergic rhinitis, unspecified OSMANY (obstructive sleep apnea) Obstructive sleep apnea (adult) (pediatric) Primary hypertension ([facility]) Unspecified essential hypertension Morbid obesity ([facility]) Morbid obesity Acute cystitis without hematuria- Primary Tobacco dependence Tobacco use disorder Needs flu shot Need for prophylactic vaccination and inoculation against influenza Morbid obesity ([facility]) Morbid obesity Well woman exam with routine gynecological exam- Primary Routine gynecological examination Morbid obesity ([facility]) Morbid obesity Metabolic encephalopathy- Primary OSMANY (obstructive sleep apnea) Obstructive sleep apnea (adult) (pediatric) Morbid obesity ([facility]) Morbid obesity Bilateral lower extremity edema Tobacco dependence Tobacco use disorder Bipolar disorder with severe depression ([facility]) At risk for polypharmacy Anxiety Anxiety state, unspecified Primary hypertension ([facility]) Unspecified essential hypertension Right bundle branch block (RBBB) determined by electrocardiography Primary hypertension ([facility])- Primary Unspecified essential hypertension Chronic kidney disease, stage 3a (HCC) ([facility]) Morbid (severe) obesity due to excess calories ([facility]) Body mass index (BMI) 45.0-49.9, adult ([facility]) OSMANY (obstructive sleep apnea) Obstructive sleep apnea (adult) (pediatric) Hemiparesis, right ([facility]) Unspecified hemiplegia affecting unspecified side Gastroesophageal reflux disease, unspecified whether esophagitis present Metabolic encephalopathy Essential (primary) hypertension ([facility]) Unspecified essential hypertension Allergic rhinitis, unspecified Gastro-esophageal reflux disease without esophagitis Bilateral lower extremity edema URI, acute- Primary Acute upper respiratory infections of unspecified site documented in this encounter [facility] HealthcareHistory and physical note Author Jace Graham [facility] March 23, 2023 11:21am Note Date/Time March 23, 2023 11:21am [facility] [address] [place] [address] Gastroenterology H&P Signed Patient: Michelle Be MR#: [id number] : 1960 Acct:[id number] Age/Sex: 62 / F Adm Date: 3 Loc: Room: Type: [facility] Attending Dr: Jace Graham MD Copies [...] signed by Jace Graham MD> 03/23/23 1121 [facility] Work Phone: History general Narrative - [...] see above surg Hospitalization History stroke 2018 [facility] Other Hospital Discharge instructions Additional Instructions Regular Diet No Activity [facility]: [facility] Discharge instructions Additional [...] years. -Follow up with PCP. -Office number [phone].[facility] Work Phone: Reason for visit Narrative* Consultation (Routine) - Closed Specialty Diagnoses / Procedures Referred By Contac t Referred To Contact Neuropsychology Diagnoses Memory change Procedures [place] OFFICE/OUTPATIENT [facility] Juany Ramirez PA [address] [place] [address] Phone: tel: fax: David Foster, PhD [address] [address] Phone: tel: fax: Referral ID Status Reason Start Date Expiration Date V isits Requested Visits Authorized [id number] Closed Specialty Services Required 03/07/2024 09/03/2024 1 1 [facility] Healthcare Summary Purpose Family History No Family [...] Documents on File Type Date Recorded Patient Medical Scribe Expl anation Power of Operating Theatre Technician 03/10/2024 3:12 PM POA Documents on File Type Date Recorded Patient Medical Scribe Expl anation Power of Operating Theatre Technician 03/10/2024 3:12 PM POA Documents on File Type Date Recorded Patient Medical Scribe Expl anation Power of Operating Theatre Technician 03/16/2024 9:42 AM darian atkins of senior trial attorney Power of Operating Theatre Technician 03/10/2024 3:12 PM POA Chief Complaint and Reason for Visit Chief Complaint Bipolar Depression Reason for Visit Allergies Bipolar 2 disorder Hypertension Morbid obesity with BMI of 45.0-49.9, adult OSMANY (obstructive sleep apnea) Restless legs syndrome Chief Complaint Screening Additional Source Comments INFORMATION SOURCE (unrecogn ized section and content) DATE CREATED AUTHOR 02/18/2019 [facility] DATE CREATED AUTHOR AUTHOR'S ORGANIZ ATION 11/15/2021 [facility] DATE CREATED AUTHOR AUTHOR'S ORGANIZ ATION 08/16/2022 [facility] DATE CREATED AUTHOR AUTHOR'S ORGANIZ ATION 05/25/2024 [facility] EPIC DATE CREATED AUTHOR AUTHOR'S ORGANIZ ATION 05/28/2024 [facility] DATE CREATED AUTHOR AUTHOR'S ORGANIZ ATION 07/04/2024 [facility] Care Teams (unrecognized sec [...] MD Other Provider Active Joellen Le , SALES ENABLEMENT ANALYST-C Other Provider Active Severo Yancey MD Other Provider Active Rao Webber MD Other Provider Active Yuan Shi MD Other Provider Active Delroy Ramirez MD Other Provider Active Berta Comer , DO Other Provider Active Negrito Ruiz , DO Other Provider Active Lacho Singh , DO Other Provider Active Rachana Obika , GLASS DRILLER Other Provider Active Rob Lake , DO Other Provider Active Jeff Alvarez MD Other Provider Active Urmila Rinaldi GLASS DRILLER Other Provider Active Bina Mayberry APRN Other Provider Active Mir Bradford MD Other Provider Active Te Da Silva MD Other Provider Active Debra Landaverde RN Other Provider Active Team Status: Inactive Member Role Status Dates Adelaida Hebob Primary Care Provider Active Jace Graham MD Attending Provider Active Front End Drupal Developer Relationship Specialty Start Date End Date José Luis Roberts MD [address] [place] [address] PCP - General Family Medicine 05/18/23 Adelaida Carrion NP [address] [place] [address] Referring Physician Nurse Practitioner 10/14/22 Front End Drupal Developer Relationship Specialty Start Date End Date José Luis Roberts MD [address] [place] [address] PCP - General Family Medicine 05/18/23 Adelaida Carrion NP [address] [place] [address] Referring Physician Nurse Practitioner 10/14/22 Front End Drupal Developer Relationship Specialty Start Date End Date José Luis Roberts MD [address] [place] [address] PCP - General Family Medicine 05/18/23 Adelaida Carrion NP [address] [place] [address] Referring Physician Nurse Practitioner 10/14/22 Front End Drupal Developer Relationship Specialty Start Date End Date José Luis Roberts MD [address] [place] [address] PCP - General Family Medicine 05/18/23 Adelaida Carrion NP Referring Physician Nurse Practitioner 10/14/22 Miriam Suarez DO [address] [place], [place] [id number] Referring Physician Neurology 06/29/23 [place] LPN Licensed Practical Nurse Family Medicine 12/18/23 Front End Drupal Developer Relationship Specialty Start Date End Date José Luis Roberts MD [address] [place] [address] PCP - General Family Medicine 05/18/23 Adelaida Carrion, BRIANA Referring Physician Nurse Practitioner 10/14/22 Miriam Suarez DO [address] [place] [address] Referring Physician Neurology 06/29/23 [place] LPN Licensed Practical Nurse Family Medicine 12/18/23 Front End Drupal Developer Relationship Specialty Start Date End Date Unallocated, Familias MD [address] [place] [address] PCP - General Family Medicine 01/27/24 Miriam Suarez DO [address] [place] [address] Referring Physician Neurology 06/29/23 [place] LPN Licensed Practical Nurse Family Medicine 12/18/23 Adelaida Carrion, BRIANA [address] [place] [address] Nurse Practitioner Family Medicine 01/27/24 Front End Drupal Developer Relationship Specialty Start Date End Date Unallocated, Noms MD [address] [address] PCP - General Family Medicine 01/27/24 Miriam Suarez DO [address] [place] [address] Referring Physician Neurology 06/29/23 [place] LPN Licensed Practical Nurse Family Medicine 12/18/23 Adelaida Carrion NP [address] [place] [address] Nurse Practitioner Family Medicine 01/27/24 Front End Drupal Developer Relationship Specialty Start Date End Date José Luis Roberts MD [address] [place] [address] PCP - General Family Medicine 02/02/24 Miriam Suarez DO [address] [place] [address] Referring Physician Neurology 06/29/23 [place] LPN Licensed Practical Nurse Family Medicine 12/18/23 Adelaida Carrion NP [address] [place] [address] Nurse Practitioner Family Medicine 01/27/24 Front End Drupal Developer Relationship Specialty Start Date End Date José Luis Roberts MD [address] [place] [address] PCP - General Family Medicine 02/02/24 Miriam Suarez DO [address] [place] [id number] Referring Physician Neurology 06/29/23 Adelaida Carrion NP [address] [place] [address] Nurse Practitioner Family Medicine 01/27/24 Bong Rosado MA Family Medicine 02/12/24 Front End Drupal Developer Relationship Specialty Start Date End Date José Luis Roberts MD [address] [place] [address] PCP - General Family Medicine 02/02/24 Miriam Suarez DO [address] [place], [place] [address] Referring Physician Neurology 06/29/23 Adelaida Carrion, BRIANA [address] [place] [address] Nurse Practitioner Family Medicine 01/27/24 Bong Rosado MA [facility] Medicine 02/12/24 Front End Drupal Developer Relationship Specialty Start Date End Date José Luis Roberts MD [address] [place] [address] PCP - General Family Medicine 02/02/24 Miriam Suarez DO [address] [place], [place] [address] Referring Physician Neurology 06/29/23 Adelaida Carrion NP [address] [place] [address] Nurse Practitioner Family Medicine 01/27/24 Bong Rosado MA Family Medicine 02/12/24 Front End Drupal Developer Relationship Specialty Start Date End Date José Luis Roberts MD [address] [place] [address] PCP - General Family Medicine 02/02/24 Miriam Suarez DO [address] [place], [place] [address] Referring Physician Neurology 06/29/23 Adelaida Carrion NP [address] [place] [address] Nurse Practitioner Family Medicine 01/27/24 Bong Rosado MA Family Medicine 02/12/24 Front End Drupal Developer Relationship Specialty Start Date End Date José Luis Roberts MD [address] [place] [address] PCP - General Family Medicine 02/02/24 Miriam Suarez DO [address] [place] [address] Referring Physician Neurology 06/29/23 Adelaida Carrion NP [address] [place] [address] Nurse Practitioner Family Medicine 01/27/24 Bong Rosado MA Family Medicine 02/12/24 Front End Drupal Developer Relationship Specialty Start Date End Date José Luis Roberts MD [address] [place] [address] PCP - General Family Medicine 02/02/24 Miriam Suarez DO [address] [place] [id number] Referring Physician Neurology 06/29/23 Adelaida Carrion NP [address] [place] [address] Nurse Practitioner Family Medicine 01/27/24 Bong Rosado MA Family Medicine 02/12/24 Front End Drupal Developer Relationship Specialty Start Date End Date José Luis Roberts MD [address] [place] [address] PCP - General Family Medicine 02/02/24 Miriam Suarez DO [address] [place], [place] [address] Referring Physician Neurology 06/29/23 Adelaida Carrion, BRIANA [address] [place] [address] Nurse Practitioner Family Medicine 01/27/24 Bong Rosado MA [facility] Medicine 02/12/24 Front End Drupal Developer Relationship Specialty Start Date End Date José Luis Roberts MD [address] [place] [address] PCP - General Family Medicine 02/02/24 Miriam Suarez DO [address] [place], [place] [address] Referring Physician Neurology 06/29/23 Adelaida Carrion NP [address] [place] [address] Nurse Practitioner Family Medicine 01/27/24 Bong Rosado MA Family Medicine 02/12/24 Front End Drupal Developer Relationship Specialty Start Date End Date José Luis Roberts MD [address] [place] [address] PCP - General Family Medicine 02/02/24 Miriam Suarez DO [address] [place], [place] [address] Referring Physician Neurology 06/29/23 Adelaida Carrion NP [address] [place] [address] Nurse Practitioner Family Medicine 01/27/24 Bong Rosado MA Family Medicine 02/12/24 Front End Drupal Developer Relationship Specialty Start Date End Date José Luis Roberts MD [address] [place] [address] PCP - General Family Medicine 02/02/24 Miriam Suarez DO [address] [place] [address] Referring Physician Neurology 06/29/23 Adelaida Carrion NP [address] [place] [address] Nurse Practitioner Family Medicine 01/27/24 Bong Rosado MA Family Medicine 02/12/24 Front End Drupal Developer Relationship Specialty Start Date End Date José Luis Roberts MD [address] [place] [address] PCP - General Family Medicine 02/02/24 Miriam Suarez DO [address] [place] [address] Referring Physician Neurology 06/29/23 Adelaida Carrion NP [address] [place] [address] Nurse Practitioner Family Medicine 01/27/24 Bong Rosado MA Family Medicine 02/12/24 Front End Drupal Developer Relationship Specialty Start Date End Date José Luis Roberts MD [address] [place] [address] PCP - General Family Medicine 05/18/23 Adelaida Carrion NP Referring Physician Nurse Practitioner 10/14/22 Miriam Suarez DO [address] [place], [place] [address] Referring Physician Neurology 06/29/23 Mathew Parra LPN Licensed Practical Nurse Family Medicine 07/23/23 Front End Drupal Developer Relationship Specialty Start Date End Date José Luis Roberts MD [address] [place] [address] PCP - General Family Medicine 05/18/23 Adelaida Carrion NP Referring Physician Nurse Practitioner 10/14/22 Miriam Suarez DO [address] [place] [address] Referring Physician Neurology 06/29/23 Mathew Parra LPN Licensed Practical Nurse Family Medicine 07/23/23 Front End Drupal Developer Relationship Specialty Start Date End Date José Luis Roberts MD [address] [place] [address] PCP - General Family Medicine 05/18/23 Adelaida Carrion, SALES ENABLEMENT ANALYST Referring Physician Nurse Practitioner 10/14/22 Miriam Suarez DO [address] [place] [address] Referring Physician Neurology 06/29/23 Mathew Parra LPN Licensed Practical Nurse Family Medicine 07/23/23 Front End Drupal Developer Relationship Specialty Start Date End Date José Luis Roberts MD [address] [place] [address] PCP - General Family Medicine 05/18/23 Adelaida Carrion SALES ENABLEMENT ANALYST Referring Physician Nurse Practitioner 10/14/22 Miriam Suarez DO [address] [place] [address] Referring Physician Neurology 06/29/23 Mathew Parra LPN Licensed Practical Nurse Family Medicine 07/23/23 Front End Drupal Developer Relationship Specialty Start Date End Date José Luis Roberts MD [address] [place] [address] PCP - General Family Medicine 05/18/23 Adelaida Carrion NP Referring Physician Nurse Practitioner 10/14/22 Miriam Suarez DO [address] [place] [address] Referring Physician Neurology 06/29/23 [place] LPN Licensed Practical Nurse Family Medicine 12/18/23 Front End Drupal Developer Relationship Specialty Start Date End Date José Luis Roberts MD [address] [place] [address] PCP - General Family Medicine 05/18/23 Adelaida Carrion NP Referring Physician Nurse Practitioner 10/14/22 Miriam Suarez DO [address] [place] [address] Referring Physician Neurology 06/29/23 [place] LPN Licensed Practical Nurse Family Medicine 12/18/23 Front End Drupal Developer Relationship Specialty Start Date End Date José Luis Roberts MD [address] [place] [address] PCP - General Family Medicine 05/18/23 Adelaida Carrion NP Referring Physician Nurse Practitioner 10/14/22 Miriam Suarez DO [address] [place] [address] Referring Physician Neurology 06/29/23 [place] LPN Licensed Practical Nurse Family Medicine 12/18/23 Front End Drupal Developer Relationship Specialty Start Date End Date José Luis Roberts MD [address] [place] [address] PCP - General Family Medicine 02/02/24 Miriam Suarez DO [address] [place] [address] Referring Physician Neurology 06/29/23 Adelaida Carrion, BRIANA [address] [place] [address] Nurse Practitioner Family Medicine 01/27/24 Bong Rosado MA Family Medicine 02/12/24 Front End Drupal Developer Relationship Specialty Start Date End Date José Luis Roberts MD [address] [place] [address] PCP - General Family Medicine 02/02/24 Miriam Suarez DO [address] [place], [place] [address] Referring Physician Neurology 06/29/23 Adelaida Carrion, BRIANA [address] [place] [address] Nurse Practitioner Family Medicine 01/27/24 Bong Rosado MA Family Medicine 02/12/24 Front End Drupal Developer Relationship Specialty Start Date End Date José Luis Roberts MD [address] [place] [address] PCP - General Family Medicine 02/02/24 Miriam Suarez DO [address] [place], [place] [address] Referring Physician Neurology 06/29/23 Adelaida Carrion NP [address] [place] [address] Nurse Practitioner Family Medicine 01/27/24 Bong Rosado MA Family Medicine 02/12/24 Front End Drupal Developer Relationship Specialty Start Date End Date José Luis Roberts MD [address] [place] [address] PCP - General Family Medicine 02/02/24 Miriam Suarez DO [address] [place] [address] Referring Physician Neurology 06/29/23 Adelaida Carrion NP [address] [place] [address] Nurse Practitioner Family Medicine 01/27/24 Bong Rosado MA Family Medicine 02/12/24 Front End Drupal Developer Relationship Specialty Start Date End Date José Luis Roberts MD [address] [place] [address] PCP - General Family Medicine 02/02/24 Miriam Suarez DO [address] [place] [address] Referring Physician Neurology 06/29/23 Adelaida Carrion NP [address] [place] [address] Nurse Practitioner Family Medicine 01/27/24 Bong Rosado MA Family Medicine 02/12/24 Front End Drupal Developer Relationship Specialty Start Date End Date José Luis Roberts MD [address] [place] [address] PCP - General Family Medicine 02/02/24 Miriam Suarez DO [address] [place] [address] Referring Physician Neurology 06/29/23 Adelaida Carrion NP [address] [place] [address] Nurse Practitioner Family Medicine 01/27/24 Bong [...] BE BASED ON THE PRIMARY CLINICAL RECORDS. [employer] provides no warranty or guarantee of the accuracy or completeness of information in this document.
--- NOTE | 2024-07-06 11:14 | PM.CN ---
Consult Note: HPI Data of Consult Patient: known to practice within the last 3 years Requesting Physician: Bhakti Culp NP Primary Care Provider: Adelaida Carrion NP Consult Narrative Reason for consult: f/u Narrative: Nasim Ingram a 63 year old female with longstanding low back pain presents for evaluation. has engaged in provider guided HEP > 6 weeks without benefit, failed tylenol heat and ice, cannot utilize NSAIDs with hx of gastric bypass. currently utilizing gabapentin, tizanidine, duloxetine with mild benefit, denies side effects. recently underwent bilateral L1/2 L2/3 RFA with >50% improvement ongoing. pt would like to address chronic right shoulder pain, previously had right suprascapular RFA ten years ago with significant improvement, noting increased pain over the last 2 months. no recent imaging. cc:: CC: Bhakti Culp NP Review of Systems ROS Status of ROS 10 or more systems reviewed and unremarkable except as noted in history and below Musculoskeletal Reports: back pain and joint pain PFSH [facility] Medical History FH: bariatric surgery ?Z84.89 - Family history of other specified conditions (ICD-10) Upper back pain ?M54.9 - Dorsalgia, unspecified (ICD-10) Osteoarthritis ?M19.90 - Unspecified osteoarthritis, unspecified site (ICD-10) Neck pain ?M54.2 - Cervicalgia (ICD-10) Low back pain ?M54.50 - Low back pain, unspecified (ICD-10) Fibromyalgia ?M79.7 - Fibromyalgia (ICD-10) Bipolar 1 disorder ?F31.9 - Bipolar disorder, unspecified (ICD-10) Acid reflux ?K21.9 - Gastro-esophageal reflux disease without esophagitis (ICD-10) Obesity ?E66.9 - Obesity, unspecified (ICD-10) Sleep apnea ?G47.30 - Sleep apnea, unspecified (ICD-10) Heart murmur ?R01.1 - Cardiac murmur, unspecified (ICD-10) High cholesterol ?E78.00 - Pure hypercholesterolemia, unspecified (ICD-10) Hypertension ?I10 - Essential (primary) hypertension (ICD-10) Surgical History S/P dilatation and curettage ?Z98.890 - Other specified postprocedural states (ICD-10) H/O breast biopsy ?Z98.890 - Other specified postprocedural states (ICD-10) S/P ORIF (open reduction internal fixation) fracture ?Z98.890 - Other specified postprocedural states (ICD-10) ?Z87.81 - Personal history of (healed) traumatic fracture (ICD-10) Hx of laparoscopic gastric banding ?Z98.84 - Bariatric surgery status (ICD-10) History of tonsillectomy and adenoidectomy ?Z90.89 - Acquired absence of other organs (ICD-10) History of appendectomy ?Z90.49 - Acquired absence of other specified parts of digestive tract (ICD-10) History of hemilaminectomy ?Z98.890 - Other specified postprocedural states (ICD-10) History of cholecystectomy ?Z90.49 - Acquired absence of other specified parts of digestive tract (ICD-10) Previous section ?Z98.891 - History of uterine scar from previous surgery (ICD-10) Social History Smoking status: Former smoker Little interest or pleasure in doing things: not at all Feeling down, depressed, or hopeless: not at all Meds Home Medications and Allergies Home Medications ?Medication ?Instructions ?Recorded ?Confirmed ?Type amlodipine 10 mg tablet (Norvasc) 10 mg PO DAILY 09/10/22 06/07/24 History biotin 1 mg capsule 5 mg PO DAILY 09/10/22 06/07/24 History cariprazine 4.5 mg capsule 4.5 mg PO Q24H 09/10/22 06/07/24 History (Vraylar) cetirizine 10 mg tablet (24Hour 10 mg PO DAILY PRN allergy symptoms 09/10/22 06/07/24 History Allergy) clonazepam 1 mg tablet 1 mg PO Q12H 09/10/22 06/07/24 History duloxetine 60 mg capsule,delayed 60 mg PO BID 09/10/22 06/07/24 History release ferrous sulfate 325 mg (65 mg 325 mg PO BID 09/10/22 06/07/24 History iron) tablet (FeroSul) losartan 50 mg tablet (Cozaar) 100 mg PO DAILY 09/10/22 06/07/24 History magnesium 200 mg tablet 400 mg PO QDAY 09/10/22 06/07/24 History melatonin 12 mg tablet 12 mg PO .HS PRN sleep 09/10/22 06/07/24 History omeprazole 20 mg capsule,delayed 20 mg PO QDAY 09/10/22 06/07/24 History release ropinirole 4 mg tablet 4 mg PO QDAY 09/10/22 06/07/24 History trazodone 150 mg tablet 150 mg PO .HS 09/10/22 06/07/24 History tizanidine 2 mg tablet 2 mg PO TID PRN muscle spasticity 10/01/23 06/07/24 Rx #90 tabs fluticasone propionate 50 1 spray intranasal DAILY PRN 10/20/23 06/07/24 History mcg/actuation nasal allergy symptoms spray,suspension (Flonase Allergy Relief) spironolactone 50 mg tablet 50 mg PO DAILY 10/20/23 06/07/24 History gabapentin 300 mg capsule 300 mg PO BID 11/03/23 06/07/24 History calcium citrate 200 mg PO QID 11/04/23 06/07/24 History carvedilol 12.5 mg tablet 12.5 mg PO Q12H 11/04/23 06/07/24 History multivitamin 1 tab PO DAILY 11/04/23 06/07/24 History Allergies Allergy/AdvReac Type Severity Reaction Status Date / Time levetiracetam (From Keppra) Allergy Severe Unknown Verified 06/07/24 06:49 adhesive Allergy Intermediate Blister Verified 06/07/24 06:49 Penicillins Allergy Intermediate Unknown Verified 06/07/24 06:49 tetracycline Allergy Intermediate Unknown Verified 06/07/24 06:49 eszopiclone (From Lunesta) Allergy Unknown Verified 06/07/24 06:49 milnacipran (From Savella) AdvReac Intermediate Agitated Verified 06/07/24 06:49 prochlorperazine (From AdvReac Intermediate Agitated Verified 06/07/24 06:49 Compazine) Exam Constitutional Documenting provider has reviewed patient's vital signs: yes Common normals: no apparent distress, oriented x3, healthy appearing, alert and well nourished General appearance: cooperative HENMT Common normals: normocephalic, hearing grossly normal bilaterally and moist oral mucous membranes Head and scalp: normocephalic Eye Common normals: PERRL Pupil: PERRL Neck & C-Spine Common normals: full ROM General: normal visual inspection Chest Common normals: inspection of chest normal Respiratory Common normals: normal respiratory effort, no retractions and no use of accessory muscles Back & Pelvis Thoracic spine/upper back: ROM limited Lumbar spine/lower back: straight leg raise negative bilaterally; no pain with ROM, no lumbar spinal tenderness, no paraspinal muscle tenderness and no paraspinal muscle spasm Other: strength 5/5 in BLE sensation intact BLE Extremity Right upper extremity: shoulder joint Right shoulder joint exam: inspection (normal to exam), palpation (tenderness noted over suprascapular and axillary pain pattern ), ROM (limited) and special tests Right shoulder special tests: Empty can test: Positive, Apley scratch test: Positive, Acromioclavicular (AC) compression test: Positive and Posterior apprehension test: Positive Neuro Common normals: oriented x3, CN's II-XII intact bilaterally, moves all extremities, no focal motor deficits, no sensory deficits noted and deep tendon reflexes 2+ bilaterally Sensorium/orientation: alert Motor exam: strength 5/5 throughout and no movement abnormalities noted Psych Common normals: mental status grossly normal, thought process normal, cooperative, affect normal, speech normal and activity/motor behavior normal Speech: normal speech Thought process: normal thought process Results Additional Findings Additional findings: If on a controlled substance or opioids, I have checked an [place] report on this patient and there are no aberrancies noted in the prescribing history.??If on a controlled substance or opioid a drug screen was completed and reviewed within the last year, and if there has not been a drug screen completed we ordered one today to monitor higher risk, state monitored pain medication use. As part of providing excellent, safe, comprehensive care, the following was completed at our patient's visit: 1. A medication reconciliation and review to ensure accurate knowledge of current/active medications, including asking our patients to inform us about any [id number] medications or herbal remedies/nutritional supplements/alternative remedies. 2. A review to specifically ensure our patients have had annual screening for screening for depression, screening for tobacco use, and screening for unhealthy alcohol use. For concerning screenings had a discussion with the patient, provided patient education, and recommended follow-up with primary care provider when appropriate. If patient noted with a risk of falling, they received education on strength, gait, and balance training to prevent future risk of falling. Portions of this note may have been carried over from the previous visit and updated as appropriate. Please note this office utilizes paper charting in addition to the electronic medical record. A list of current medications, vitals, and PMH is available there as the clinical staff outside of myself do not have access to [facility] charting during the clinic day operations. As part of providing quality comprehensive care the current medications, vitals, and PMH were reviewed in the paper chart. Assessment and Plan Assessment and Plan (1) Lumbar spondylosis: Assessment and Plan: The patient has had over 3 months of moderate to severe back pain with functional impairment and inadequate response to conservative care including NSAIDS (unless there are contraindication such as concurrent blood thinners), multiple oral or topical pain medications, and home exercise program/physical therapy.? Patient has completed >6 weeks of guided home exercise program and/or formal physical therapy program without relief of their symptoms.? I have reviewed the imaging of the lumbar spine and no red flags were identified.? The imaging reveals radiographic findings consistent with lumbar spondylosis The Oswestry Disability Index was completed, and the patient scored a 47%.? The patient noted the following:?? moderate to severe pain, pain impacting ADLs, pain impacting ability to sit and walk for longer than 15 minutes, pain interrupting sleep social life and travel We discussed the risks and benefits of the procedure with the patient. ?The procedure will be completed with fluoroscopic guidance.? (2) Chronic right shoulder pain: Plan update right shoulder xray proceed with right suprascapular and axillary nerve block x1 in consideration of RFA continue HEP as tolerated continue current medications through PCP and ordering providers f/u after injection
== END 2024-07-06 10:35 | disposition home or self-care (01) ==
LOC: PM 10:34
PROVIDERS: PCP Nurse Practitioner; Visit Provider Nurse Practitioner
DX: M47.816 Spondylosis without myelopathy or radiculopathy, lumbar region (principal); M25.511 Pain in right shoulder
CPT/HCPCS: G0463

== ENCOUNTER 2024-07-18 06:27 | Day surgery (SDC) | payer MEDICARE, SELFPAY ==
--- OUTSIDE RECORDS SUMMARY | 2024-07-18 06:31 | XMS_ITS | CCD ---
Author Organization [facility] Care Team Providers Care Food Order Expediter Name Role Phone ROSIERAHEIM, SUKI Admitting Unavailable EBRAHEIM, SUKI Attending Unavailable AICHHOLZ, ADELAIDA Referring Unavailable AICHHOLZ, ADELAIDA Primary Care Unavailable [place] Procedure Practitioner Unavailab SUKI Jacob Surgeon Unavailable [place] Procedure Practitioner Unavailab CHAPARRITA Goncalves Surgeon Unavailable BRIDGETTE MACEDO Admitting Unavailable BRIDGETTE MACEDO Attending Unavailable AICHHOLZ, GEEK SQUAD MANAGER ADELAIDA Primary Care Unavailable NIXON ., DR FINA Iverson Admitting Unavailable NIXON ., DR FINA Iverson Attending Unavailable AICHHOLZ, GEEK SQUAD MANAGER ADELAIDA Primary Care Unavailable MCDANIEL ., ZELDA Consulting Unavailable LAKSHMIPATHY ., NARENDRANATH Consulting Paula vailable LAKSHMIPATHY ., NARENDRANATH Admitting Paula vailable LAKSHMIPATHY ., NARENDRANATH Attending Paula vailable AICHHOLZ, GEEK SQUAD MANAGER ADELAIDA Primary Care Unavailable LAKSHMIPATHY ., NARENDRANATH Consulting Paula vailable AICHHOLZ, GEEK SQUAD MANAGER ADELAIDA Primary Care Unavailable MARKER ., DR CHAUDHRY Admitting Unavailable MARKER ., DR CHAUDHRY Attending Unavailable MARKER ., DR CHAUDHRY Consulting Unavailable AICHHOLZ, GEEK SQUAD MANAGER ADELAIDA Admitting Unavailable AICHHOLZ, GEEK SQUAD MANAGER ADELAIDA Attending Unavailable AICHHOLZ, GEEK SQUAD MANAGER ADELAIDA Primary Care Unavailable NIXON ., DR FINA Iverson Admitting Unavailable NIXON ., DR FINA Iverson Attending Unavailable AICHHOLZ, GEEK SQUAD MANAGER ADELAIDA Primary Care Unavailable MCDANIEL ., ZELDA Consulting Unavailable NIXON ., DR FINA Iverson Admitting Unavailable NIXON ., DR FINA Iverson Attending Unavailable AICHHOLZ, GEEK SQUAD MANAGER ADELAIDA Primary Care Unavailable MCDANIEL ., ZELDA Consulting Unavailable AICHHOLZ, GEEK SQUAD MANAGER ADELAIDA Admitting Unavailable AICHHOLZ, GEEK SQUAD MANAGER ADELAIDA Attending Unavailable AICHHOLZ, GEEK SQUAD MANAGER ADELAIDA Primary Care Unavailable AICHHOLZ, GEEK SQUAD MANAGER ADELAIDA Consulting Unavailable AICHHOLZ, GEEK SQUAD MANAGER ADELAIDA Admitting Unavailable AICHHOLZ, GEEK SQUAD MANAGER ADELAIDA Attending Unavailable AICHOLZ, GEEK SQUAD MANAGER ADELAIDA Primary Care Unavailable AICHHOLZ, GEEK SQUAD MANAGER ADELAIDA Consulting Unavailable MISC, DR COTE Admitting Unavailable MISC, DR COTE Attending Unavailable AICHOLZ, GEEK SQUAD MANAGER ADELAIDA Primary Care Unavailable AICHHOLZ, GEEK SQUAD MANAGER ADELAIDA Consulting Unavailable PRITESHC, DR COTE Consulting Unavailable STARR, DR KINGSLEY Atkins Consulting Unavailable NIXON ., DR FINA Iverson Admitting Unavailable NIXON ., DR FINA Iverson Attending Unavailable AICHOLZ, [facility] ADELAIDA Primary Care Unavailable MCDANIEL ., ZELDA Consulting Unavailable NIXON ., DR FINA Iverson Admitting Unavailable NIXON ., DR FINA Iverson Attending [facility]available [facility] Primary Care Unavailable NIXON ., DR FINA Iverson Consulting Unavailable OMID LAY Consulting Unavailable NIXON ., DR FINA Iverson Admitting Unavailable NIXON ., DR FINA Iverson Attending Unavailable [facility], [facility] ADELAIDA Primary Care Unavailable MCDANIEL ., ZELDA Consulting Unavailable AICHOLZ, [facility] ADELAIDA Primary Care Unavailable HALKER ., ARIAN Admitting Unavailable HALKER ., ARIAN Attending Unavailable LAKSHMIPATHY ., NARENDRANATH Consulting Paula vailable HALKER ., ARIAN Consulting Unavailable LAKSHMIPATHY ., NARENDRANATH Admitting Paula vailable LAKSHMIPATHY ., NARENDRANATH Attending Paula vailable [facility], [facility] ADELAIDA Primary Care Unavailable LAKSHMIPATHY ., NARENDRANATH Consulting Paula vailable AICHOLZ, GEEK SQUAD MANAGER ADELAIDA Admitting Unavailable AICHHOLZ, GEEK SQUAD MANAGER ADELAIDA Attending Unavailable AICHOLZ, GEEK SQUAD MANAGER ADELAIDA Primary Care Unavailable AICHHOLZ, GEEK SQUAD MANAGER ADELAIDA Consulting Unavailable BRIDGETTE MACEDO Admitting Unavailable BRIDGETTE MACEDO Attending Unavailable AICHHOLZ, GEEK SQUAD MANAGER ADELAIDA Primary Care Unavailable DR KINGSLEY CLEMENTS Consulting Unavailable BRIDGETTE MACEDO Consulting Unavailable GILMER NEVES Admitting Unavailable GILMER NEVES Attending Unavailable PURA, GILMER Consulting Unavailable AICHOLZ, GEEK SQUAD MANAGER ADELAIDA Primary Care Unavailable AICHHOLZ, GEEK SQUAD MANAGER ADELAIDA Primary Care Unavailable DR WILLI RINALDI Admitting Unavailable DEEJAY, DR WILLI Atkins Attending Unavailable DR WILLI RINALDI Consulting Unavailable AICHHOLZ, GEEK SQUAD MANAGER ADELAIDA Primary Care Unavailable ALMAZ ., DANNY Admitting Unavailable ALMAZ ., DANNY Attending Unavailable DR KINGSLEY CLEMENTS Consulting Unavailable ALMAZ ., DANNY Consulting Unavailable LAKSHMIPATHY ., NARENDRANATH Admitting Paula vailable LAKSHMIPATHY ., NARENDRANATH Attending Paula vailable AICHHOLZ, GEEK SQUAD MANAGER ADELAIDA Primary Care Unavailable AICHHOLZ, GEEK SQUAD MANAGER ADELAIDA Admitting Unavailable AICHHOLZ, GEEK SQUAD MANAGER ADELAIDA Attending Unavailable AICHHOLZ, GEEK SQUAD MANAGER ADELAIDA Primary Care Unavailable AICHHOLZ, GEEK SQUAD MANAGER ADELAIDA Admitting Unavailable AICHHOLZ, GEEK SQUAD MANAGER ADELAIDA Attending Unavailable AICHHOLZ, GEEK SQUAD MANAGER ADELAIDA Primary Care Unavailable AICHHOLZ, GEEK SQUAD MANAGER ADELAIDA Consulting Unavailable DR KINGSLEY CLEMENTS Consulting Unavailable HALKER ., ARIAN Admitting Unavailable HALKER ., ARIAN Attending Unavailable AICHHOLZ, GEEK SQUAD MANAGER ADELAIDA Primary Care Unavailable Aichholz, Adelaida J Primary Care Provider MD Gaudencio Monk Admit Provider [phone] MD Gaudencio Monk Attending Provider JOHANN Vieira Other Provider Unavailable JOHANN Pina Other Provider Unavailable JOHANN Hurtado Other Provider Unavailable JOHANN Crooks Other Provider Unavailable JOHANN Mejias Other Provider Unavailable JOHANN Kim Other Provider Unavailable MD Walker Pringle Other Provider ROSS Marsh Other Provider DO Jessica Murillo Other Provider MD Obdulio Bragg Other Provider [phone] DO Joon Cristina Other Provider MD Torin Robert Other Provider MD Dawn Barrera Other Provider [phone] Karlene ANP-BC Mari Other Provider MD Sofi Almanzar Other Provider [phone] MD Sharad Gallegos Other Provider MD [...] Provider MD Jace Graham Attending Provider Sheyla BANQUET CAPTAIN, Adelaida Unavailable Joés Luis Roberts MD Primary Care Provider Aichholz BANQUET CAPTAIN, Adelaida Unavailable Daniela GRAHAM, Miriam Unavailable Moises CAMPBELL, Diana Unavailable Unavailable Unallocated , Familias Provider Primary Care Yadirai kellee Aichbob BANQUET CAPTAIN, Adelaida Unavailable José Luis Roberts MD Primary Care Provider Bong Rosado MA Unavailable Unavailable Aida CAMPBELL, Mathew Unavailable Unavailable AICHHOLZ, ADELAIDA Attending Unavailable LOWE, JUANY Attending Unavailable AICHHOLZ, ADELAIDA Attending Unavailable AICHHOLZ, ADELAIDA Attending Unavailable AICHHOLZ, ADELAIDA Attending Unavailable AICHHOLZ, ADELAIDA Attending Unavailable AICHHOLZ, ADELAIDA Attending Unavailable WINDNASONAM VILLASENOR Attending Unavailable AICHHOLZ, ADELAIDA Attending Unavailable WINDNASONAM VILLASENOR Attending Unavailable GILLMOR, [...] adverse reactions (disorder) 04-06-19 14 rash [facility] Repository (3 sources) levETIRAcetam; Translations: [KEPPRA] Drug Allergy 07-02-19 19 [facility] Rep[facility] (3 sources) milnacipran; Translations: [SAVELLA] Drug Allergy 03-14-20 13 [facility] Rep[facility] (1 source) Penicillin; Translations: [PENICILLIN] Drug Allergy 01-16-20 18 [facility] Rep[facility] (5 sources) Prochlorperazin e; Translations: [COMPAZINE] Drug Allergy 03-14-20 13 agitation [facility] Repository (20 sources) Tetracycline; Translations: [TETRACYCLINE] Drug Allergy 04-06-19 13 Hives, Unknown [facility] Rep[facility] (4 sources) Penicillins Drug allergy (disorder) 04-06-19 13 Unknown Reaction [facility] Repository (20 sources) levETIRAcetam; Translations: [levetiracetam] Drug Allergy 12-13-19 22 Hallucinations , Other [facility] (20 sources) milnacipran; Translations: [milnacipran] Drug Allergy 12-13-19 22 hives, Hallucinations , Other, Unknown [facility] (20 sources) Prochlorperazin e; Translations: [prochlorperazi ne] Drug Allergy 12-13-19 22 Unknown, Other [facility] (2 sources) Penicillin G Drug Allergy as a child [facility] Other (2 sources) Tetracaine Drug Allergy Unknown [facility] Other (20 sources) Penicillins Drug Intolerance 12-13-19 22 Anaphylaxis [facility] (20 sources) Other Propensity to adverse reactions 12-13-19 22 Other [facility] (20 sources) Wound Dressing Adhesive Drug Allergy 09-20-19 23 Rash, Unknown [facility] (20 sources) Eszopiclone Drug Allergy 09-21-19 24 Hallucinations , Anaphylaxis [facility] (1 source) Penicillin Drug Allergy 03-02-20 [facility] Repository (1 source) Penicillins Drug allergy (disorder) 03-02-20 [facility] Repository (1 source) Tetracaine Drug Allergy 03-02-20 [facility] Repository Medications Current Medications Medication [...] sources) Magnesium 400 MG capsule Pt taking OTC(AWAK) Active Magnesium 400 MG capsule magnesium 0 [...] e Melatonin 12 MG tablet Indications: from [employer] Take 1 tablet by mouth at bedtime [...] s-Minerals (BARIATRIC MULTIVITAMINS/IRON PO) Pt taking OTC ([employer]) Active Multiple Vitamin s-Minerals (BARIATRIC MULTIVITAMINS/IRON PO) Bariatric Multivitamins/Iron 0 Active Lfjsraiwghtu-Frb-Acro-Fa-Vit K (Bariatric Multivitamins) 45 mg iron- 800 mcg-120 mcg Capsule (2 sources) Start: 11-17-2022 take 1 capsule by mouth once daily Eoocsygjwmby-All-Uxsa-Fa-Vit K (Bariatric Multivitamins) 45 mg iron- 800 mcg-120 mcg Capsule Active 1 CAP PO Daily November 16, 2022 11:00pm Start: 11-17-2022 take 1 capsule by mo [facility] once daily Prfugyzogska-Kkn-Tdhg-Fa-Vit K (Bariatri c Multivitamins) 45 mg iron- 800 mcg-120 mcg Capsule Active 1 CAP PO Daily November 17, 2022 12:00am nystatin 250978 unt/ml topical cream (20 sources) Polyene Antifungal Start: 03-07-2024 nystatin (M ycostatin) cream 03/07/2024 Active nystatin (Mycost atin) 423167 UNIT/GM powder Apply 1 application topically in [...] 05-18-2023 Episodic Other aftercare (1 source) 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 Performed By: #### C MG ANAMARIA, CMP #### [address] Basophils/100 WBC (Bld) 0.5 % Normal . [facility] Comment on above: Performed By: #### C MG ANAMARIA, CMP #### [place] [id number] [place] Eosinophils (Bld) [#/Vol] 0.2 10*3/uL Normal 0.0-0.45 [facility] Comment on above: Performed By: #### C BC, MG, CMP #### [address] Eosinophils/100 WBC (Bld) 2.2 % Normal . [facility] Comment on above: Performed By: #### C BC, MG, CMP #### [address] Erythrocyte distribution width (RBC) [Ratio] 14.5 % Normal 11.9-15.3 [facility] Comment on above: Performed By: #### C BC, MG, CMP #### [address] Hematocrit (Bld) [Volume fraction] 43.0 % Normal 34.0-46.4 [facility] Comment on above: Performed By: #### C BC, MG, CMP #### [address] Hemoglobin (Bld) [Mass/Vol] 14.3 g/dL Normal 11.8-15.4 [facility] Comment on above: Performed By: #### C BC, MG, CMP #### [address] Lymphocytes (Bld) [#/Vol] 1.8 10*3/uL Normal 1.00-4.8 [facility] Comment on above: Performed By: #### C BC, MG, CMP #### [address] Lymphocytes/100 WBC (Bld) 18.9 % Normal . [facility] Comment on above: Performed By: #### C BC, MG, CMP #### [address] MCH (RBC) [Entitic mass] 29.0 pg Normal 24.7-34.3 [facility] Comment on above: Performed By: #### C BC, MG, CMP #### [address] MCV (RBC) [Entitic vol] 87.0 fL Normal 80-100 [facility] Comment on above: Performed By: #### C BC MG, CMP #### [address] Mean Corpuscular HGB Conc 33.4 g/dL Normal 32.0-35.0 [facility] Comment on above: Performed By: #### C BC, MG, CMP #### [address] Monocytes (Bld) [#/Vol] 0.5 10*3/uL Normal 0.0-0.8 [facility] Comment on above: Performed By: #### C BC MG, CMP #### [address] Monocytes/100 WBC (Bld) 5.5 % Normal . [facility] Comment on above: Performed By: #### C BC MG, CMP #### [address] Neutrophils (Bld) [#/Vol] 7.0 10*3/uL Normal 1.8-7.7 [facility] Comment on above: Performed By: #### C BC, MG, CMP #### [address] Neutrophils/100 WBC (Bld) 72.9 % Normal . [facility] Comment on above: Performed By: #### C BC, MG, CMP #### [address] NRBC% 0.0 /100{WBC} Normal 0-0.5 [facility] Comment on above: Performed By: #### C BC, MG, CMP #### [address] Platelet mean volume (Bld) [Entitic vol] 8.9 fL Normal 6.3-10.7 [facility] Comment on above: Performed By: #### C BC, MG, CMP #### [address] Platelets (Bld) [#/Vol] 289 10*3/uL Normal 150-450 [facility] Comment on above: Performed By: #### C BC, MG, CMP #### [address] RBC (Bld) [#/Vol] 4.94 10*6/uL Normal 3.60-5.00 [facility] Comment on above: Performed By: #### C BC, MG, CMP #### [address] WBC (Bld) [#/Vol] 9.6 10*3/uL Normal 3.8-11.6 [facility] Comment on above: Performed By: #### C BC, MG, CMP #### [address] Comprehensive Metabolic Pane [place] 03-05-2024 Albumin [Mass/Vol] 4.4 g/dL Normal 3.5-5.7 [facility] Comment on above: Performed By: #### C BC, MG, CMP #### [address] Albumin/Globulin [Mass ratio] 1.3 {ratio} Normal [facility] Comment on above: Performed By: #### C BC, MG, CMP #### [address] ALP [Catalytic activity/Vol] 79 U/L Normal 34-104 [facility] Comment on above: Performed By: #### C BC, MG, CMP #### [address] ALT [Catalytic activity/Vol] 23 U/L Normal 7-52 [facility] Comment on above: Performed By: #### C BC, MG, CMP #### [address] Anion gap [Moles/Vol] 15.4 mmol/L High 6.0-15.0 [facility] Comment on above: Performed By: #### C BC, MG, CMP #### [facility] [address] [place] [address] [place] AST [Catalytic activity/Vol] 36 U/L Normal 13-39 [facility] Comment on above: Performed By: #### C BC, MG, CMP #### [facility] [address] [place] [address] [place] Bilirubin [Mass/Vol] 0.4 mg/dL Normal 0.3-1.0 [facility] Comment on above: Performed By: #### C BC, MG, CMP #### [facility] [address] [place] [address] [place] Calcium [Mass/Vol] 9.5 mg/dL Normal 8.6-10.3 [facility] Comment on above: Performed By: #### C BC, MG, CMP #### [facility] [address] [place] [address] [place] Chloride [Moles/Vol] 106 mmol/L Normal 98-107 [facility] Comment on above: Performed By: #### C BC, MG, CMP #### [facility] [address] [place] [address] [place] CO2 [Moles/Vol] 23.1 mmol/L Normal 21.0-31.0 [facility] Comment on above: Performed By: #### C BC, MG, CMP #### [facility] [address] [place] [address] [place] Creatinine [Mass/Vol] 0.96 mg/dL Normal 0.60-1.20 [facility] Comment on above: Performed By: #### C BC, MG, CMP #### [facility] [address] [place] [address] [place] Creatinine Clr Calc Pharmacy 84.51 Normal [facility] Comment on above: Performed By: #### C BC, MG, CMP #### [facility] [address] [place] [address] [place] GFR/1.73 sq M.predicted MDRD (S/P/Bld) [Vol rate/Area] mL/min/{1.73_m2} Normal [facility] Comment on above: Performed By: #### C BC, MG, CMP #### [facility] [address] Globulin (S) [Mass/Vol] 3.3 g/dL Normal [facility] Comment on above: Performed By: #### C BC, MG, CMP #### [facility] [address] Glucose [Mass/Vol] 133 mg/dL High 70-100 [facility] Comment on above: Result Comment: [facility] Glucose Reference Range is dependent on time and content of last meal. Glucose of more than 200 mg/dL in a nonstressed, ambulatory subject supports the diagnosis of Diabetes Mellitus. ADA recommended reference range Performed By: #### C BC, MG, CMP #### [facility] [address] Potassium [Moles/Vol] 3.5 mmol/L Normal 3.5-5.1 [facility] Comment on above: Performed By: #### C BC, MG, CMP #### [facility] [address] Protein [Mass/Vol] 7.7 g/dL Normal 6.4-8.9 [facility] Comment on above: Performed By: #### C BC, MG, CMP #### [address] Sodium [Moles/Vol] 141 mmol/L Normal 136-145 [facility] Comment on above: Performed By: #### C BC, MG, CMP #### [facility] [address] Urea nitrogen [Mass/Vol] 18 mg/dL Normal 7-25 [facility] Comment on above: Performed By: #### C BC, MG, CMP #### [address] Magnesiumon 03-05-2024 Magnesium [Mass/Vol] 2.0 mg/dL Normal 1.9-2.7 [facility] Comment on above: Result Comment: PERF ORMED BY: [place] [address] PATHOLOGIST AERIAL PHOTOGRAPHER ADIEL AGUSTIN M.D. Performed By: #### C BC, MG, CMP #### [address] Complete Blood Count Auto Di ffon 03-04-2024 Basophils (Bld) [#/Vol] 0.1 10*3/uL Normal 0.0-0.2 [facility] Comment on above: Result Comment: PERF ORMED BY: [place] [address] PATHOLOGIST AERIAL PHOTOGRAPHER ADIEL AGUSTIN M.D. Performed By: #### C MP, MG, CBC #### [address] Basophils/100 WBC (Bld) 0.6 % Normal . [facility] Comment on above: Performed By: #### C MP, MG, CBC #### [address] Eosinophils (Bld) [#/Vol] 0.2 10*3/uL Normal 0.0-0.45 [facility] Comment on above: Performed By: #### C MP, MG, CBC #### [address] Eosinophils/100 WBC (Bld) 1.9 % Normal . [facility] Comment on above: Performed By: #### C MP, MG, CBC #### [address] Erythrocyte distribution width (RBC) [Ratio] 14.6 % Normal 11.9-15.3 [facility] Comment on above: Performed By: #### C MP, MG, CBC #### [address] Hematocrit (Bld) [Volume fraction] 43.5 % Normal 34.0-46.4 [facility] Comment on above: Performed By: #### C MP, MG, CBC #### [address] Hemoglobin (Bld) [Mass/Vol] 14.4 g/dL Normal 11.8-15.4 [facility] Comment on above: Performed By: #### C MP, MG, CBC #### [address] Lymphocytes (Bld) [#/Vol] 1.8 10*3/uL Normal 1.00-4.8 [facility] Comment on above: Performed By: #### C MP, MG, CBC #### [address] Lymphocytes/100 WBC (Bld) 18.0 % Normal . [facility] Comment on above: Performed By: #### C MP, MG, CBC #### [address] MCH (RBC) [Entitic mass] 28.8 pg Normal 24.7-34.3 [facility] Comment on above: Performed By: #### C MP, MG, CBC #### [address] MCV (RBC) [Entitic vol] 87.0 fL Normal 80-100 [facility] Comment on above: Performed By: #### C MP, MG, CBC #### [address] Mean Corpuscular HGB Conc 33.2 g/dL Normal 32.0-35.0 [facility] Comment on above: Performed By: #### C MP, MG, CBC #### [address] Monocytes (Bld) [#/Vol] 0.8 10*3/uL Normal 0.0-0.8 [facility] Comment on above: Performed By: #### C MP, MG, CBC #### [address] Monocytes/100 WBC (Bld) 8.2 % Normal . [facility] Comment on above: Performed By: #### C MP, MG, CBC #### [facility] [address] Neutrophils (Bld) [#/Vol] 7.3 10*3/uL Normal 1.8-7.7 [facility] Comment on above: Performed By: #### C MP, MG, CBC #### [facility] [address] Neutrophils/100 WBC (Bld) 71.3 % Normal . [facility] Comment on above: Performed By: #### C MP, MG, CBC #### [facility] [address] NRBC% 0.1 /100{WBC} Normal 0-0.5 [facility] Comment on above: Performed By: #### C MP, MG, CBC #### [address] Platelet mean volume (Bld) [Entitic vol] 8.8 fL Normal 6.3-10.7 [facility] Comment on above: Performed By: #### C MP, MG, CBC #### [facility] [address] [place] [address] [place] Platelets (Bld) [#/Vol] 334 10*3/uL Normal 150-450 [facility] Comment on above: Performed By: #### C MP, MG, CBC #### [address] RBC (Bld) [#/Vol] 5.01 10*6/uL High 3.60-5.00 [facility] Comment on above: Performed By: #### C MP, MG, CBC #### [facility] [address] [place] [address] [place] WBC (Bld) [#/Vol] 10.3 10*3/uL Normal 3.8-11.6 [facility] Comment on above: Performed By: #### C MP, MG, CBC #### [address] Comprehensive Metabolic Pane [place] 03-04-2024 Albumin [Mass/Vol] 4.5 g/dL Normal 3.5-5.7 [facility] Comment on above: Performed By: #### C MP, MG, CBC #### [address] Albumin/Globulin [Mass ratio] 1.4 {ratio} Normal [facility] Comment on above: Performed By: #### C MP, MG, CBC #### [facility] [address] ALP [Catalytic activity/Vol] 79 U/L Normal 34-104 [facility] Comment on above: Performed By: #### C MP, MG, CBC #### [address] ALT [Catalytic activity/Vol] 19 U/L Normal 7-52 [facility] Comment on above: Performed By: #### C MP, MG, CBC #### [address] Anion gap [Moles/Vol] 11.4 mmol/L Normal 6.0-15.0 [facility] Comment on above: Performed By: #### C MP, MG, CBC #### [address] AST [Catalytic activity/Vol] 37 U/L Normal 13-39 [facility] Comment on above: Performed By: #### C MP, MG, CBC #### [place] [address] [place] Bilirubin [Mass/Vol] 0.5 mg/dL Normal 0.3-1.0 [facility] Comment on above: Performed By: #### C MP, MG, CBC #### [facility] [address] [place] [address] [place] Calcium [Mass/Vol] 9.6 mg/dL Normal 8.6-10.3 [facility] Comment on above: Performed By: #### C MP, MG, CBC #### [place] [address] [place] Chloride [Moles/Vol] 107 mmol/L Normal 98-107 [facility] Comment on above: Performed By: #### C MP, MG, CBC #### [facility] [address] CO2 [Moles/Vol] 27.4 mmol/L Normal 21.0-31.0 [facility] Comment on above: Performed By: #### C MP, MG, CBC #### [address] Creatinine [Mass/Vol] 0.91 mg/dL Normal 0.60-1.20 [facility] Comment on above: Performed By: #### C MP, MG, CBC #### [address] Creatinine Clr Calc Pharmacy 90.12 Normal [facility] Comment on above: Performed By: #### C MP, MG, CBC #### [place] [address] [place] GFR/1.73 sq M.predicted MDRD (S/P/Bld) [Vol rate/Area] mL/min/{1.73_m2} Normal [facility] Comment on above: Performed By: #### C MP, MG, CBC #### [address] Globulin (S) [Mass/Vol] 3.2 g/dL Normal [facility] Comment on above: Performed By: #### C MP, MG, CBC #### [address] Glucose [Mass/Vol] 100 mg/dL Normal 70-100 [facility] Comment on above: Result Comment: [place] Glucose Reference Range is dependent on time and content of last meal. Glucose of more than 200 mg/dL in a nonstressed, ambulatory subject supports the diagnosis of Diabetes Mellitus. ADA recommended reference range Performed By: #### C MP, MG, CBC #### [address] Potassium [Moles/Vol] 3.8 mmol/L Normal 3.5-5.1 [facility] Comment on above: Performed By: #### C MP, MG, CBC #### [facility] [address] Protein [Mass/Vol] 7.7 g/dL Normal 6.4-8.9 [facility] Comment on above: Performed By: #### C MP, MG, CBC #### [facility] [address] Sodium [Moles/Vol] 142 mmol/L Normal 136-145 [facility] Comment on above: Performed By: #### C MP, MG, CBC #### [facility] [address] Urea nitrogen [Mass/Vol] 15 mg/dL Normal 7-25 [facility] Comment on above: Performed By: #### C MP, MG, CBC #### [address] MR head/brain wo/w conon MR head/brain wo/w con [facility] Main [place] [address] [place] [address] MRI Report Signed Patient: Michelle Be MR#: [id number] : 1960 Acct:[id number] Age/Sex: 63 / F ADM Date: 03/03/24 Loc: Room: [address] [place] [address] Type: ADM IN Attending Dr: Delta Gan [...] Willi Guadalupe M.D.03/04/2024 2:32 PM Dictation Location: [place] [address] Transcribed By: MESHA 03/04/24 1432 Dictated By: Willi Guadalupe II, MD 03/04/24 1424 Signed By: 03/04/24 1432 Normal [facility] Magnesiumon 03-04-2024 Magnesium [Mass/Vol] 2.0 mg/dL Normal 1.9-2.7 [facility] Comment on above: Result Comment: PERF ORMED BY: [place] [address] PATHOLOGIST AERIAL PHOTOGRAPHER ADIEL AGUSTIN M.D. Performed By: #### C MP, MG, CBC #### [facility] [address] [place] [address] Complete Blood Count Auto Di ffon 03-03-2024 Basophils (Bld) [#/Vol] 0.1 10*3/uL Normal 0.0-0.2 [facility] Comment on above: Order Comment: REY PORRAS,KAH,1607 Result Comment: PERF ORMED BY: [place] [address] PATHOLOGIST AERIAL PHOTOGRAPHER ADIEL AGUSTIN M.D. Performed By: #### C BC, CMP #### [address] Basophils/100 WBC (Bld) 0.6 % Normal . [facility] Comment on above: Order Comment: RIN T O COME TRY,KAH,1607 Performed By: #### C BC, CMP #### [address] Eosinophils (Bld) [#/Vol] 0.1 10*3/uL Normal 0.0-0.45 [facility] Comment on above: Order Comment: RIN T O COME TRY,KAH,1607 Performed By: #### C BC, CMP #### [address] Eosinophils/100 WBC (Bld) 1.0 % Normal . [facility] Comment on above: Order Comment: RIN T O COME TRY,KAH,1607 Performed By: #### C BC, CMP #### [address] Erythrocyte distribution width (RBC) [Ratio] 14.6 % Normal 11.9-15.3 [facility] Comment on above: Order Comment: RIN T O COME TRY,KAH,1607 Performed By: #### C BC, CMP #### [address] Hematocrit (Bld) [Volume fraction] 42.9 % Normal 34.0-46.4 [facility] Comment on above: Order Comment: RIN T O COME TRY,KAH,1607 Performed By: #### C BC, CMP #### [address] Hemoglobin (Bld) [Mass/Vol] 14.5 g/dL Normal 11.8-15.4 [facility] Comment on above: Order Comment: RIN T O COME TRY,KAH,1607 Performed By: #### C BC, CMP #### [address] Lymphocytes (Bld) [#/Vol] 1.7 10*3/uL Normal 1.00-4.8 [facility] Comment on above: Order Comment: RIN T O COME TRY,KAH,1607 Performed By: #### C BC, CMP #### [address] Lymphocytes/100 WBC (Bld) 15.7 % Normal . [facility] Comment on above: Order Comment: RIN T O COME TRY,KAH,1607 Performed By: #### C BC, CMP #### [address] MCH (RBC) [Entitic mass] 29.1 pg Normal 24.7-34.3 [facility] Comment on above: Order Comment: RIN T O COME TRY,KAH,1607 Performed By: #### C BC, CMP #### [address] MCV (RBC) [Entitic vol] 85.9 fL Normal 80-100 [facility] Comment on above: Order Comment: RIN T O COME TRY,KAH,1607 Performed By: #### C BC, CMP #### [address] Mean Corpuscular HGB Conc 33.8 g/dL Normal 32.0-35.0 [facility] Comment on above: Order Comment: RIN T O COME TRY,KAH,1607 Performed By: #### C BC, CMP #### [address] Monocytes (Bld) [#/Vol] 0.9 10*3/uL High 0.0-0.8 [facility] Comment on above: Order Comment: RIN T O COME TRY,KAH,1607 Performed By: #### C BC, CMP #### [address] Monocytes/100 WBC (Bld) 8.4 % Normal . [facility] Comment on above: Order Comment: RIN T O COME TRY,KAH,1607 Performed By: #### C BC, CMP #### [address] Neutrophils (Bld) [#/Vol] 8.0 10*3/uL High 1.8-7.7 [facility] Comment on above: Order Comment: RIN T O COME TRY,KAH,1607 Performed By: #### C BC, CMP #### [address] Neutrophils/100 WBC (Bld) 74.3 % Normal . [facility] Comment on above: Order Comment: RIN T O COME TRY,KAH,1607 Performed By: #### C BC, CMP #### [address] NRBC% 0.1 /100{WBC} Normal 0-0.5 [facility] Comment on above: Order Comment: RIN T O COME TRY,KAH,1607 Performed By: #### C BC, CMP #### [address] Platelet mean volume (Bld) [Entitic vol] 8.9 fL Normal 6.3-10.7 [facility] Comment on above: Order Comment: RIN T O COME TRY,KAH,1607 Performed By: #### C BC, CMP #### [address] Platelets (Bld) [#/Vol] 291 10*3/uL Normal 150-450 [facility] Comment on above: Order Comment: RIN T O COME TRY,KAH,1607 Performed By: #### C BC, CMP #### [address] RBC (Bld) [#/Vol] 4.99 10*6/uL Normal 3.60-5.00 [facility] Comment on above: Order Comment: RIN T O COME TRY,KAH,1607 Performed By: #### C BC, CMP #### [address] WBC (Bld) [#/Vol] 10.7 10*3/uL Normal 3.8-11.6 [facility] Comment on above: Order Comment: RIN T O COME TRY,KAH,1607 Performed By: #### C BC, CMP #### [address] Comprehensive Metabolic Pane [place] 03-03-2024 Albumin [Mass/Vol] 4.6 g/dL Normal 3.5-5.7 [facility] Comment on above: Order Comment: RIN T O COME TRY,KAH,1607 Performed By: #### C BC, CMP #### [facility] [address] Albumin/Globulin [Mass ratio] 1.4 {ratio} Normal [facility] Comment on above: Order Comment: RIN T O COME TRY,KAH,1607 Performed By: #### C BC, CMP #### [facility] [address] [place] [id number] [facility] [[email or web address]] ALP [Catalytic activity/Vol] 80 U/L Normal 34-104 [facility] Comment on above: Order Comment: RIN T O COME TRY,KAH,1607 Performed By: #### C BC, CMP #### [address] ALT [Catalytic activity/Vol] 16 U/L Normal 7-52 [facility] Comment on above: Order Comment: RIN T O COME TRY,KAH,1607 Performed By: #### C BC, CMP #### [address] Anion gap [Moles/Vol] 13.6 mmol/L Normal 6.0-15.0 [facility] Comment on above: Order Comment: RIN T O COME TRY,KAH,160 Performed By: #### C BC, CMP #### [place] [address] [place] AST [Catalytic activity/Vol] 35 U/L Normal 13-39 [facility] Comment on above: Order Comment: RIN T O COME TRY,KAH,1607 Performed By: #### C BC, CMP #### [place] [address] [place] Bilirubin [Mass/Vol] 0.3 mg/dL Normal 0.3-1.0 [facility] Comment on above: Order Comment: RIN T O COME TRY,KAH,1607 Performed By: #### C BC, CMP #### [address] [place] [address] [place] Calcium [Mass/Vol] 9.3 mg/dL Normal 8.6-10.3 [facility] Comment on above: Order Comment: RIN T O COME TRY,KAH,1607 Performed By: #### C BC, CMP #### [facility] [address] Chloride [Moles/Vol] 109 mmol/L High 98-107 [facility] Comment on above: Order Comment: RIN T O COME TRY,KAH,1607 Performed By: #### C BC, CMP #### [facility] [address] CO2 [Moles/Vol] 22.4 mmol/L Normal 21.0-31.0 [facility] Comment on above: Order Comment: RIN T O COME TRY,KAH,1607 Performed By: #### C BC, CMP #### [facility] [address] [place] [id number] [facility] [[email or web address]] Creatinine [Mass/Vol] 0.93 mg/dL Normal 0.60-1.20 [facility] Comment on above: Order Comment: RIN T O COME TRY,KAH,1607 Performed By: #### C BC, CMP #### [facility] [address] Creatinine Clr Calc Pharmacy 87.94 Normal [facility] Comment on above: Order Comment: RIN T O COME TRY,KAH,1607 Result Comment: PERF ORMED BY: [place] [address] PATHOLOGIST AERIAL PHOTOGRAPHER ADIEL AGUSTIN M.D. Performed By: #### C BC, CMP #### [address] GFR/1.73 sq M.predicted MDRD (S/P/Bld) [Vol rate/Area] mL/min/{1.73_m2} Normal [facility] Comment on above: Order Comment: RIN T O COME TRY,KAH,1607 Performed By: #### C BC, CMP #### [facility] [address] [place] [address] [place] Globulin (S) [Mass/Vol] 3.2 g/dL Normal [facility] Comment on above: Order Comment: REY Marge O JAK TRY,KAH,1606 Performed By: #### C BC, CMP #### [facility] [address] Glucose [Mass/Vol] 105 mg/dL High 70-100 [facility] Comment on above: Order Comment: REY T O COME TRY,KAH,1606 Result Comment: [facility] Glucose Reference Range is dependent on time and content of last meal. Glucose of more than 200 mg/dL in a nonstressed, ambulatory subject supports the diagnosis of Diabetes Mellitus. ADA recommended reference range Performed By: #### C BC, CMP #### [facility] [address] Potassium [Moles/Vol] 4.0 mmol/L Normal 3.5-5.1 [facility] Comment on above: Order Comment: REY T O JAK TRY,KAH,1606 Performed By: #### C BC, CMP #### [facility] [address] [place] [address] [place] Protein [Mass/Vol] 7.8 g/dL Normal 6.4-8.9 [facility] Comment on above: Order Comment: REY T O JAK TRY,KAH,1606 Performed By: #### C BC, CMP #### [facility] [address] [place] [phone] [place] Sodium [Moles/Vol] 141 mmol/L Normal 136-145 [facility] Comment on above: Order Comment: REY T O COME TRY,KAH,1606 Performed By: #### C BC, CMP #### [facility] [address] [place] [address] [place] Urea nitrogen [Mass/Vol] 15 mg/dL Normal 7-25 [facility] Comment on above: Order Comment: REY T O JAK TRY,KAH,1606 Performed By: #### C BC, CMP #### [facility] [address] [place] [address] [place] IGP,APTIMA HPV,AGE GDLNon AGE GDLN ACOG TESTING Note . [facility] Comment on above: TESTS RESULT FLAG UN ITS REF RANGE LAB Clinician Provided Cytology Information Source.............Cervix;Endocervix No. of containers..01 ThinPrep Vial Age Algo ACOG Tona... FLAG LEGEND: L-Low Normal,H-High Normal,LL-Alert Low,HH-Alert High <-Panic Low,>-Panic High,A-Abnormal,AA-Critical Abnormal Performed at: 01 [facility] [address] [address] Farzana Hennessy MD, HPV APTIMA Negative Negative [facility] Comment on above: This nucleic acid am plification test detects fourteen high- risk HPV types (16,18,31,33,35,39,45,51,52,56,58,59,66,68) without differentiation. Performed at: [facility] [address] [id number] Stereoplotter Operator: Farzana Hennessy MD, Phone: [phone] Performed at: [facility] [address] [place], [place] [id number] [employer] Operator: Scott Sandoval MD, Phone: [phone] IGP, APTIMA HPV, RFX 16/18,45 Note . [facility] Comment on above: TESTS RESULT FLAG U NITS REF RANGE LAB DIAGNOSIS: 02 NEGATIVE FOR INTRAEPITHELIAL LESION OR MALIGNANCY. Specimen adequacy: 02 Satisfactory for evaluation. Endocervical and/or squamous metaplastic cells (endocervical component) are present. Performed by: 02 Adelaida Bustamante, End User Consultant ([facility]) . 02 Note: Note 03 The [...] High,A-Abnormal,AA-Critical Abnormal Performed at: 02 [facility] [address] [place] [address] Scott Sandoval MD, 03 WB [facility] [address] [address] Farzana Hennessy MD, BROOM-ALONE CERVIX [facility]ERVIX [facility] Urinalysis macro (dipstick) panel (U)on 01-28-2024 Bilirubin, UA Negative Negative - 4(70) +++ mg/dL [facility] Blood, UA Negative Negative - 50 Kranthi/mcL [facility] Clarity, UA Clear [facility] Color, UA Dark Tania [facility] Glucose, UA Negative Negative - 1999(110) ++++ mg/dL [facility] Interpretation and review of laboratory results Abnormal [facility] Ketones, UA Negative Negative - 160(16) ++++ mg/dL [facility] Leukocytes, UA Trace Negative - 500+++ Radha/mcL [facility] Nitrite, UA Negative Negative - Positive [facility] pH, UA 5.5 5 - 9 [facility] Protein, UA Negative Negative - 1999(20) ++++ mg/dL [facility] Spec Grav, UA 1.025 1 - 1.03 [facility] Urobilinogen, UA 0.2 0.2 - 12 mg/dL [facility] MHPT CULT,URINEon 01-23-2024 Interpretation and review of laboratory results [facility] Spec[facility] Description .CLEAN CATCH [facility]INE [facility] Culture ESCHERICHIA COLI >100,000 CFU/ML [facility] STREPTOCOCCI, BETA HEMOLYTIC GROUP B 10 to 50,000 CFU/ML [facility] Report Status FINAL 01/23/2024 [facility] MHPT CULT,URINE SUSCEPTIBILITY [facility] Organism ESCHERICHIA COLI [facility] Method CROW [facility] Ampicillin 16 INTERMEDIATE Intermediate [facility] Cefazolin <=4 SUSCEPTIBLE Susceptible [facility] Cefazolin sensitivit y results can be used to predict the effectiveness of oral Susceptible [facility] MHPT CULT,URINE cephalosporins (eg. Cephalexin) in uncomplicated Urinary Tract Infections due Susceptible [facility] MHPT CULT,URINE to E. coli, K. pneumoniae, and P. mirabilis Susceptible [facility] MHPT CULT,URINE Ceftriaxone <=0.25 SUSCEPTIBLE Susceptible [facility] MHPT CULT,URINE Negative Susceptible [facility] MHPT CULT,URINE Gentamicin <=1 SUSCEPTIBLE Susceptible [facility] MHPT CULT,URINE Levofloxacin <=0.12 SUSCEPTIBLE Susceptible [facility] Nitrofurantoin <=16 SUSCEPTIBLE Susceptible [facility] Piperacillin/Tazobac ta m <=4 SUSCEPTIBLE Susceptible [facility] MHPT CULT,URINE Tobramycin <=1 SUSCEPTIBLE Susceptible [facility] MHPT CULT,URINE Trimethoprim/Sulfa <=20 SUSCEPTIBLE Susceptible [facility] Original Ordering Provider: RICHA CHAVEZ [facility] ALL BASIC METABOLIC PANELon 01-05-2024 Anion gap [Moles/Vol] 11.1 mmol/L [facility] Calcium [Mass/Vol] 9.2 mg/dL 8.5 - 10. 1 mg/dL [facility] Chloride [Moles/Vol] 105 mmol/L 98 - 10 7 mmol/L [facility] CO2 [Moles/Vol] 28.0 mmol/L 21.0 - 32.0 mmol/L [facility] Creatinine [Mass/Vol] 1.08 mg/dL High 0.55 - 1.02 mg/dL [facility] GFR/1.73 sq M.predicted CKD-EPI (S/P/Bld) [Vol rate/Area] >60 60 - PINF [facility] Glucose [Mass/Vol] 92 mg/dL 74 - 106 mg/dL [facility] Interpretation and review of laboratory results Abnormal [facility] Potassium [Moles/Vol] 4.1 mmol/L 3.5 - 5.1 mmol/L [facility] Sodium [Moles/Vol] 140 mmol/L 136 - 145 mmol/L [facility] TBH EGFR-NON AF SUDANESE 51 Low 60 - PINF [facility] Urea nitrogen [Mass/Vol] 17.0 mg/dL 7.0 - 18.0 mg/dL [facility] Urea nitrogen/Creatinine [Mass ratio] 15.7 mg/mg [facility] Amp[facility] Screen Ql (U)Ord ered By: Jace Graham on 03-23-2023 Amphetamines Ql (U) Negative Negative [facility] Barbiturates [Presence] in U rine by Screen methodOrdered By: Jace Graham on 03-23-2023 Barbiturates Screen Ql (U) Negative Negative [facility] Benzodiazepines Screen Ql (U )Ordered By: Jace Graham on 03-23-2023 Benzodiazepines Ql (U) Negative Negative [facility] Benzoylecgonine [Presence] i n Urine by Screen methodOrdered By: Jace Graham on 03-23-2023 Benzoylecgonine Screen Ql (U) Negative Negative [facility] Cannabinoids [Presence] in U rine by Screen methodOrdered By: Jace Graham on 03-23-2023 Cannabinoids Screen Ql (U) Negative Negative [facility] Comment on above: These are unconfirme d results and should not be used for legal purposes. Drug Cut-Off Concentration: AMPH 1000 ng/mL ELKIN 200 ng/mL ATIYA 200 ng/mL COCM 300 ng/mL OP 300 ng/mL PCP 25 ng/mL THC 20 ng/mL Opiates [Presence] in Urine by Screen methodOrdered By: Jace Graham on 03-23-2023 Opiates Screen Ql (U) Negative Negative [facility] Phencyclidine Screen Ql (U)O rdered By: Jace Graham on 03-23-2023 Phencyclidine Ql (U) Negative Negative [facility] Cholesterol [Mass/volume] in Serum or PlasmaOrdered By: Eduardo Monk on 11-18-2022 Cholesterol [Mass/Vol] 159 mg/dL 140-200 [facility] Comment on above: Chol less than 200 m g/dl low riskChol 201-239 mg/dl borderline riskChol 240 mg/dl and greater high risk Cholesterol in LDL Calc [Mas s/Vol]Ordered By: Eduardo Monk on 11-18-2022 Cholesterol in LDL [Mass/Vol] 84 mg/dL 0-100 [facility] Comment on above: LDL ATP III CLASSIFI CATIONLDL less than 100 mg/dL OptimalLDL 100-129 mg/dL Near or above optimalLDL 130-159 mg/dL Borderline highLDL 160-189 mg/dL HighLDL greater than 189 mg/dL Very high Cholesterol in VLDL Calc [Ma ss/Vol]Ordered By: Eduardo Monk on 11-18-2022 Cholesterol in VLDL [Mass/Vol] 28 mg/dL [facility] Serum or plasma high density lipoprotein (HDL) cholesterol measurementOrdered By: Eduardo Monk on 11-18-2022 Cholesterol in HDL [Mass/Vol] 46 mg/dL 23-92 [facility] Comment on above: HDL CHOL ATP-III CLA SSIFICATION Cardiovascular RiskHDL > or equal to 60 mg/dL LOWHDL < 40 mg/dL HIGH Serum or plasma total choles terol/high density lipoprotein (HDL) cholesterol mass ratOrdered By: Eduardo Monk on 11-18-2022 Cholesterol.total/Chol esterol in HDL [Mass ratio] 3.5 {ratio} <5.0 [facility] Thyrotropin [Units/volume] i n Serum or PlasmaOrdered By: Eduardo Monk on 11-18-2022 TSH Qn 2.13 m[IU]/L 0.45-5.33 [facility] Triglyceride [Mass/volume] i n Serum or PlasmaOrdered By: Eduardo Monk on 11-18-2022 Triglyceride [Mass/Vol] 144 mg/dL 0-149 [facility] Comment on above: TRIG ATP III CLASSIF ICATIONTRIG less than 150 mg/dL NormalTRIG 150-199 mg/dL Borderline highTRIG 200-500 mg/dL High TRIG greater than 500 mg/dL Very highStandard traceable to the Center for Disease Conrtrol and Prevention (CDC) test method. Vitamin D+Metabolites [Mass/ volume] in Serum or PlasmaOrdered By: Eduardo Monk on 11-18-2022 Vitamin D+Metabolites [Mass/Vol] 50.4 ng/mL 30-100 [facility] Comment on above: VITAMIN D STATUS 25( [place])VITAMIN D RANGE (ng/mL) Deficient <20 Insufficient 20 to <30Sufficient 30 to 100Reference: Bin MF,Lakshmi NC, Cristian SMART, et al. Evaluation,treatment, and prevention of vitamin D deficiency; an Endocrine Society clinical practice guideline. JCEM. 2010; 96(7):1911-30. CBC AUTO DIFFon 07-25-2022 BASO # 0.1 103/ul Normal 0.0-0.1 [facility] Comment on above: Performed By: #### A 1C #### [facility] [address] [address] [address] Bebeto Alvarado Basophils/100 WBC (Bld) 0.6 % Normal 0.2-2.0 [facility] Comment on above: Performed By: #### A 1C #### [facility] [address] [place] [address] Dr. Bebeto Alvarado EO # 0.2 103/ul Normal 0.0-0.7 [facility] Comment on above: Performed By: #### A 1C #### [facility] [address] [place] [address] Dr. Bebeto Alvarado Eosinophils/100 WBC (Bld) 2.3 % Normal 0.9-7.0 [facility] Comment on above: Performed By: #### A 1C #### [facility] [address] [place] [address] Dr. Bebeto Alvarado Erythrocyte distribution width (RBC) [Ratio] 13.8 % Normal 11.0-15.0 [facility] Comment on above: Performed By: #### A 1C #### [facility] [address] [place] [address] Dr. Bebeto Alvarado Hematocrit (Bld) [Volume fraction] 41.2 % Normal 36.0-48.0 [facility] Comment on above: Performed By: #### A 1C #### [facility] [address] [place] [address] Dr. Bebeto Alvarado Hemoglobin (Bld) [Mass/Vol] 13.2 g/dL Normal 12.0-16.0 [facility] Comment on above: Performed By: #### A 1C #### [facility] [address] [place] [address] Dr. Bebeto Alvarado IG # 0.03 10e3/ul Normal 0.00-0.03 [facility] Comment on above: Performed By: #### A 1C #### [facility] [address] [place] [address] Dr. Bebeto Alvarado IG % 0.4 % Normal 0.0-0.5 [facility] Comment on above: Performed By: #### A 1C #### [facility] [address] [place] [address] Dr. Bebeto Alvarado LYMPH # 2.1 103/ul Normal 1.2-3.8 [facility] Comment on above: Performed By: #### A 1C #### [facility] [facility] [address] [place] [address] Dr. Bebeto Alvarado Lymphocytes/100 WBC (Bld) 25.9 % Normal 20.5-60.0 [facility] Comment on above: Performed By: #### A 1C #### [facility] [address] [place] [address] Dr. Bebeto Alvarado MANUAL DIFF REQ NO Normal [facility] Comment on above: Performed By: #### A 1C #### [facility] [address] [place] [address] Dr. Bebeto Alvarado MCH (RBC) [Entitic mass] 28.0 pg Normal 26.7-34.0 [facility] Comment on above: Performed By: #### A 1C #### [facility] [address] [place] [address] Dr. Bebeto Alvarado MCHC (RBC) [Mass/Vol] 32.0 g/dL Normal 29.9-35.2 [facility] Comment on above: Performed By: #### A 1C #### [facility] [address] [place] [address] Dr. Bebeto Alvarado MCV (RBC) [Entitic vol] 87.5 fL Normal 81.0-99.0 [facility] Comment on above: Performed By: #### A 1C #### [facility] [address] [place] [address] Dr. Bebeto Alvarado MONO # 0.5 103/ul Normal 0.3-0.8 [facility] Comment on above: Performed By: #### A 1C #### [facility] [address] [place] [address] Dr. Bebeto Alvraado Monocytes/100 WBC (Bld) 6.6 % Normal 1.7-12.0 [facility] Comment on above: Performed By: #### A 1C #### [facility] [address] [place] [address] Dr. Bebeto Alvarado NEUT # 5.1 103/ul Normal 1.4-6.5 [facility] Comment on above: Performed By: #### A 1C #### [facility] [address] [place] [address] Dr. Bebeto Alvarado Neutrophils/100 WBC (Bld) 64.2 % Normal 43.0-75.0 [facility] Comment on above: Performed By: #### A 1C #### [facility] [address] [place] [address] Dr. Bebeto Alvarado Platelet mean volume (Bld) [Entitic vol] 11.2 fL Normal 9.5-13.5 [facility] Comment on above: Performed By: #### A 1C #### [facility] [address] [place] [address] Dr. Bebeto Alvarado PLT 252 103/ul Normal 150-450 [facility] Comment on above: Performed By: #### A 1C #### [facility] [address] [place] [address] Dr. Bebeto Alvarado RBC 4.71 106/ul Normal 4.20-5.40 [facility] Comment on above: Performed By: #### A 1C #### [facility] [address] [place] [address] Dr. Bebeto Alvarado WBC 8.0 103/ul Normal 4.0-11.0 [facility] Comment on above: Performed By: #### A 1C #### [facility] [address] [place] [address] Dr. Bebeto Alvarado GLYCOHEMOGLOBIN A1Con 2022 ADA RECOMMENDATION SEE BELOW Normal [facility] Comment on above: Result Comment: ADA RECOMMENDED LIMIT 4.0 - 6.0 ADA THERAPEUTIC TARGET < 7.0 ACTION SUGGESTED > 7.0 Performed By: #### A 1C #### [facility] [address] [place] [address] Dr. Bebeto Alvarado Glucose [Mass/Vol] 114 mg/dL Normal [facility] Comment on above: Performed By: #### A 1C #### [facility] [address] [place] [address] Dr. Bebeto Alvarado HbA1c (Bld) [Mass fraction] 5.6 % Normal 4.5-6.2 [facility] Comment on above: Performed By: #### A 1C #### [facility] [address] [address] [address] Bebeto Alvarado IRONon 07-25-2022 Iron [Mass/Vol] 60.0 ug/dL Normal 50.0-170.0 [facility] Comment on above: Performed By: #### V ITB12, IRON #### [facility] [address] [address] [address] Bebeto Alvarado LIPID PROFILEon 07-25-2022 CHOL-HDL RATIO NORM SEE BELOW Normal [facility] Comment on above: Result Comment: 3.3 - 4.4 LOW RISK 4.4 - 7.1 AVERAGE RISK 7.1 - 11.0 MODERATE RISK >11.0 HIGH RISK Performed By: #### C MP, LIPID #### [facility] [address] [place] [address] Dr. Bebeto Alvarado Cholesterol [Mass/Vol] 144 mg/dL Normal <=200 [facility] Comment on above: Performed By: #### C MP, LIPID #### [facility] [address] [place] [address] Dr. Bebeto Alvarado Cholesterol in HDL [Mass/Vol] 39 mg/dL Critically low 40-60 [facility] Comment on above: Performed By: #### C MP, LIPID #### [facility] [address] [place] [address] Dr. Bebeto Alvarado Cholesterol in LDL [Mass/Vol] 74.6 mg/dL Normal [facility] Comment on above: Performed By: #### C MP, LIPID #### [facility] [address] [place] [address] Dr. Bebeto Alvarado Cholesterol.total/Chol esterol in HDL [Mass ratio] 3.7 {ratio} Normal [facility] Comment on above: Performed By: #### C MP, LIPID #### [facility] [address] [place] [address] Dr. Bebeto Alvarado HDL NORMAL > or = 60 mg/dl - LO W CARDIOVASCULAR RISK <40 mg/dl - HIGH CARDIOVASCULAR RISK Normal [facility] Comment on above: Performed By: #### C MP, LIPID #### [facility] [address] [address] [address] Bebeto Alvarado LDL CALC NORMAL SEE BELOW Normal [facility] Comment on above: Result Comment: <100 mg/dl OPTIMAL 100 - 129 mg/dl NEAR OR ABOVE OPTIMAL 130 - 159 mg/dl BORDERLINE HIGH 160 - 189 mg/dl HIGH >190 mg/dl VERY HIGH Performed By: #### C MP, LIPID #### [facility] [address] [place] [address] Dr. Bebeto Alvarado Triglyceride [Mass/Vol] 152 mg/dL Critically high <=150 [facility] Comment on above: Performed By: #### C MP, LIPID #### [facility] [address] [place] [address] Dr. Bebeto Alvarado VLDL CALC 30.4 mg/dL Normal [facility] Comment on above: Performed By: #### C MP, LIPID #### [facility] [address] [place] [address] Dr. Bebeto Alvarado PROF 14(COMP METB)on 023 Albumin [Mass/Vol] 3.7 g/dL Normal 3.4-5.0 [facility] Comment on above: Performed By: #### C MP, LIPID #### [facility] [address] [place] [address] Dr. Bebeto Alvarado Albumin/Globulin [Mass ratio] 0.9 {ratio} Normal [facility] Comment on above: Performed By: #### C MP, LIPID #### [facility] [address] [place] [address] Dr. Bebeto Alvarado ALP [Catalytic activity/Vol] 90 U/L Normal 46-116 [facility] Comment on above: Performed By: #### C MP, LIPID #### [facility] [address] [place] [address] Dr. Bebeto Alvarado ALT [Catalytic activity/Vol] 38 U/L Normal 14-59 [facility] Comment on above: Performed By: #### C MP, LIPID #### [facility] [address] [place] [address] Dr. Bebeto Alvarado Anion gap [Moles/Vol] 12.1 mmol/L Normal [facility] Comment on above: Performed By: #### C MP, LIPID #### [facility] [address] [address] [address] Bebeto Alvarado AST [Catalytic activity/Vol] 26 U/L Normal 15-37 [facility] Comment on above: Performed By: #### C MP, LIPID #### [facility] [address] [address] [address] Bebeto Alvarado Bilirubin [Mass/Vol] 0.3 mg/dL Normal 0.2-1.0 [facility] Comment on above: Performed By: #### C MP, LIPID #### [facility] [address] [place] [address] Dr. Bebeto Alvarado Calcium [Mass/Vol] 9.3 mg/dL Normal 8.5-10.1 [facility] Comment on above: Performed By: #### C MP, LIPID #### [facility] [address] [place] [address] Dr. Bebeto Alvarado Chloride [Moles/Vol] 107 mmol/L Normal 98-107 [facility] Comment on above: Performed By: #### C MP, LIPID #### [facility] [address] [place] [address] Dr. Bebeto Alvarado CO2 [Moles/Vol] 27.9 mmol/L Normal 21.0-32.0 [facility] Comment on above: Performed By: #### C MP, LIPID #### [facility] [address] [place] [address] Dr. Bebeto Alvarado Creatinine [Mass/Vol] 0.95 mg/dL Normal 0.55-1.02 [facility] Comment on above: Performed By: #### C MP, LIPID #### [facility] [address] [place] [address] Dr. Bebeto Alvarado EGFR-AF SUDANESE >60 Normal >=60 [facility] Comment on above: Performed By: #### C MP, LIPID #### [facility] [address] [place] [address] Dr. Bebeto Alvarado EGFR-NON AF SUDANESE 60 mL/min/1.73m2 Normal >=60 [facility] Comment on above: Performed By: #### C MP, LIPID #### [facility] [address] [place] [address] Dr. Bebeto Alvarado Globulin (S) [Mass/Vol] 3.9 g/dL Normal [facility] Comment on above: Performed By: #### C MP, LIPID #### [facility] [address] [place] [address] Dr. Bebeto Alvarado Glucose [Mass/Vol] 108 mg/dL Critically high 74-106 [facility] Comment on above: Performed By: #### C MP, LIPID #### [facility] [address] [place] [address] Dr. Bebeto Alvarado Potassium [Moles/Vol] 4.0 mmol/L Normal 3.5-5.1 [facility] Comment on above: Performed By: #### C MP, LIPID #### [facility] [address] [place] [address] Dr. Bebeto Alvarado Protein [Mass/Vol] 7.6 g/dL Normal 6.4-8.2 [facility] Comment on above: Performed By: #### C MP, LIPID #### [facility] [address] [place] [address] Dr. Bebeto Alvarado Sodium [Moles/Vol] 143 mmol/L Normal 136-145 [facility] Comment on above: Performed By: #### C MP, LIPID #### [facility] [address] [place] [address] Dr. Bebeto Alvarado Urea nitrogen [Mass/Vol] 15.0 mg/dL Normal 7.0-18.0 [facility] Comment on above: Performed By: #### C MP, LIPID #### [facility] [address] [place] [address] Dr. Bebeto Alvarado Urea nitrogen/Creatinine [Mass ratio] 15.8 mg/mg Normal [facility] Comment on above: Performed By: #### C MP, LIPID #### [facility] [address] [place] [address] Dr. Bebeto Alvarado UA RANDOM W/MICROSCOPICon BACTERIA NONE SEEN Normal NONE SEEN [facility] Comment on above: Performed By: #### A 1C #### [facility] [address] [place] [address] Dr. Bebeto Alvarado Bilirubin Ql (U) Negative Normal NEGATIVE [facility] Comment on above: Performed By: #### A 1C #### [facility] [address] [place] [address] Dr. Bebeto Alvarado CAST NONE SEEN Normal NONE SEEN [facility] Comment on above: Performed By: #### A 1C #### [facility] [address] [place] [address] Dr. Bebeto Alvarado Clarity (U) CLEAR Normal CLEAR [facility] Comment on above: Performed By: #### A 1C #### [facility] [address] [place] [address] Dr. Bebeto Alvarado Color (U) YELLOW Normal YELLOW [facility] Comment on above: Performed By: #### A 1C #### [facility] [address] [place] [address] Dr. Bebeto Alvarado Crystals LM Nom (Urine sed) NONE SEEN Normal NONE SEEN [facility] Comment on above: Performed By: #### A 1C #### [facility] [address] [place] [address] Dr. Bebeto Alvarado Epithelial cells LM Ql (Urine sed) NONE SEEN Normal NONE SEEN /RARE [facility] Comment on above: Performed By: #### A 1C #### [facility] [address] [place] [address] Dr. eBbeto Alvarado Glucose Ql (U) Negative Normal NEGATIVE [facility] Comment on above: Performed By: #### A 1C #### [facility] [address] [place] [address] Dr. Bebeto Alvarado Hemoglobin Ql (U) Negative Normal NEGATIVE [facility] Comment on above: Performed By: #### A 1C #### [facility] [address] [place] [address] Dr. Bebeto Alvarado Ketones Ql (U) Negative Normal NEGATIVE [facility] Comment on above: Performed By: #### A 1C #### [facility] [address] [place] [address] Dr. Bebeto Alvarado LEUKOCYTES Negative Normal NEGATIVE [facility] Comment on above: Performed By: #### A 1C #### [facility] [address] [place] [address] Dr. Bebeto Alvarado MUCOUS NONE SEEN Normal NONE SEEN [facility] Comment on above: Performed By: #### A 1C #### [facility] [address] [place] [address] Dr. Bebeto Alvarado Nitrite Ql (U) Negative Normal NEGATIVE [facility] Comment on above: Performed By: #### A 1C #### [facility] [address] [place] [address] Dr. Bebeto Alvarado pH (U) 5.5 [pH] Normal 5-9 [facility] Comment on above: Performed By: #### A 1C #### [facility] [address] [place] [address] Dr. Bebeto Alvarado RBC NONE SEEN Abnormal 0-2 [facility] Comment on above: Performed By: #### A 1C #### [facility] [address] [place] [address] Dr. Bebeto Alvarado SPEC GRAVITY 1.030 Abnormal 1.005-<=1.02 5 [facility] Comment on above: Performed By: #### A 1C #### [facility] [address] [place] [address] Dr. Bebeto Alvarado UA PROTEIN Negative Normal NEGATIVE/ TRACE [facility] Comment on above: Performed By: #### A 1C #### [facility] [address] [place] [address] Dr. Bebeto Alvarado Urobilinogen Qn (U) 0.2 {Katerin'U}/dL Normal 0.2 - 1. 0 [facility] Comment on above: Performed By: #### A 1C #### [facility] [address] [place] [address] Dr. Bebeto Alvarado WBC NONE SEEN Normal NONE SEEN [facility] Comment on above: Performed By: #### A 1C #### [facility] [address] [place] [address] Dr. Bebeto Alvarado VITAMIN B12on 07-25-2022 Cobalamin (Vitamin B12) [Mass/Vol] 1684.0 pg/mL Critically high 193.0-986.0 [facility] Comment on above: Performed By: #### V ITB12, IRON #### [facility] [address] [address] [address] Bebeto Alvarado PROF CHEM 8 (BAS METB)on Anion gap [Moles/Vol] 12.2 mmol/L Normal [facility] Comment on above: Performed By: #### B MP #### [facility] [address] [address] [address] Bebeto Alvarado Calcium [Mass/Vol] 8.9 mg/dL Normal 8.5-10.1 [facility] Comment on above: Performed By: #### B MP #### [facility] [address] [address] [address] Bebeto Alvarado Chloride [Moles/Vol] 105 mmol/L Normal 98-107 [facility] Comment on above: Performed By: #### B MP #### [facility] [address] [address] [address] Bebeto Alvarado CO2 [Moles/Vol] 29.6 mmol/L Normal 21.0-32.0 [facility] Comment on above: Performed By: #### B MP #### [facility] [address] [address] [address] Bebeto Alvarado Creatinine [Mass/Vol] 0.95 mg/dL Normal 0.55-1.02 [facility] Comment on above: Performed By: #### B MP #### [facility] [address] [address] [address] Bebeto Alvarado EGFR-AF SUDANESE >60 Normal >=60 [facility] Comment on above: Performed By: #### B MP #### [facility] [address] [address] [address] Bebeto Alvarado EGFR-NON AF SUDANESE 60 mL/min/1.73m2 Normal >=60 [facility] Comment on above: Performed By: #### B MP #### [facility] [address] [address] [address] Bebeto Alvarado Glucose [Mass/Vol] 101 mg/dL Normal 74-106 [facility] Comment on above: Performed By: #### B MP #### [facility] [address] [address] [address] Bebeto Alvaraod Potassium [Moles/Vol] 3.8 mmol/L Normal 3.5-5.1 [facility] Comment on above: Performed By: #### B MP #### [facility] [address] [address] [address] Bebeto Alvarado Sodium [Moles/Vol] 143 mmol/L Normal 136-145 [facility] Comment on above: Performed By: #### B MP #### [facility] [address] [place] [address] Dr. Bebeto Alvarado Urea nitrogen [Mass/Vol] 16.0 mg/dL Normal 7.0-18.0 [facility] Comment on above: Performed By: #### B MP #### [facility] [address] [place] [address] Dr. Bebeto Alvarado Urea nitrogen/Creatinine [Mass ratio] 16.8 mg/mg Normal [facility] Comment on above: Performed By: #### B MP #### [facility] [address] [place] [address] Dr. Bebeto Alvarado CBC AUTO DIFFon 11-21-2021 BASO # 0.1 103/ul Normal 0.0-0.1 [facility] Comment on above: Performed By: #### A 1C #### [facility] [address] [place] [address] Dr. Bebeto Alvarado Basophils/100 WBC (Bld) 1.0 % Normal 0.2-2.0 [facility] Comment on above: Performed By: #### A 1C #### [facility] [address] [place] [address] Dr. Bebeto Alvarado EO # 0.2 103/ul Normal 0.0-0.7 [facility] Comment on above: Performed By: #### A 1C #### [facility] [address] [place] [address] Dr. Bebeto Alvarado Eosinophils/100 WBC (Bld) 3.3 % Normal 0.9-7.0 [facility] Comment on above: Performed By: #### A 1C #### [facility] [address] [place] [address] Dr. Bebeto Alvarado Erythrocyte distribution width (RBC) [Ratio] 13.8 % Normal 11.0-15.0 [facility] Comment on above: Performed By: #### A 1C #### [facility] [address] [place] [address] Dr. Bebeto Alvarado Hematocrit (Bld) [Volume fraction] 38.8 % Normal 36.0-48.0 [facility] Comment on above: Performed By: #### A 1C #### [facility] [address] [place] [address] Dr. Bebeto Alvarado Hemoglobin (Bld) [Mass/Vol] 12.5 g/dL Normal 12.0-16.0 [facility] Comment on above: Performed By: #### A 1C #### [facility] [address] [place] [address] Dr. Bebeto Alvarado IG # 0.02 10e3/ul Normal 0.00-0.03 [facility] Comment on above: Performed By: #### A 1C #### [facility] [address] [place] [address] Dr. Bebeto Alvarado IG % 0.3 % Normal 0.0-0.5 [facility] Comment on above: Performed By: #### A 1C #### [facility] [address] [place] [address] Dr. Bebeto Alvarado LYMPH # 1.9 103/ul Normal 1.2-3.8 [facility] Comment on above: Performed By: #### A 1C #### [facility] [address] [place] [address] Dr. Bebeto Alvarado Lymphocytes/100 WBC (Bld) 29.6 % Normal 20.5-60.0 [facility] Comment on above: Performed By: #### A 1C #### [facility] [address] [place] [address] Dr. Bebeto Alvarado MANUAL DIFF REQ NO Normal [facility] Comment on above: Performed By: #### A 1C #### [facility] [address] [place] [address] Dr. Bebeot Alvarado MCH (RBC) [Entitic mass] 28.0 pg Normal 26.7-34.0 [facility] Comment on above: Performed By: #### A 1C #### [facility] [address] [place] [address] Dr. Bebeto Alvarado MCHC (RBC) [Mass/Vol] 32.2 g/dL Normal 29.9-35.2 [facility] Comment on above: Performed By: #### A 1C #### [facility] [address] [place] [address] Dr. Bebeto Alvarado MCV (RBC) [Entitic vol] 86.8 fL Normal 81.0-99.0 [facility] Comment on above: Performed By: #### A 1C #### [facility] [address] [place] [address] Dr. Bebeto Alvarado MONO # 0.4 103/ul Normal 0.3-0.8 [facility] Comment on above: Performed By: #### A 1C #### [facility] [address] [place] [address] Dr. Bebeto Alvarado Monocytes/100 WBC (Bld) 5.7 % Normal 1.7-12.0 [facility] Comment on above: Performed By: #### A 1C #### [facility] [address] [place] [address] Dr. Bebeto Alvarado NEUT # 3.8 103/ul Normal 1.4-6.5 [facility] Comment on above: Performed By: #### A 1C #### [facility] [address] [place] [address] Dr. Bebeto Alvarado Neutrophils/100 WBC (Bld) 60.1 % Normal 43.0-75.0 [facility] Comment on above: Performed By: #### A 1C #### [facility] [address] [place] [address] Dr. Bebeto Alvarado Platelet mean volume (Bld) [Entitic vol] 11.0 fL Normal 9.5-13.5 [facility] Comment on above: Performed By: #### A 1C #### [facility] [address] [place] [address] Dr. Bebeto Alvarado PLT 264 103/ul Normal 150-450 [facility] Comment on above: Performed By: #### A 1C #### [facility] [address] [address] [address] Bebeto Alvarado RBC 4.47 106/ul Normal 4.20-5.40 [facility] Comment on above: Performed By: #### A 1C #### [facility] [address] [place] [address] Dr. Bebeto Alvarado WBC 6.3 103/ul Normal 4.0-11.0 [facility] Comment on above: Performed By: #### A 1C #### [facility] [address] [place] [address] Dr. Bebeto Alvarado GLYCOHEMOGLOBIN A1Con 2021 ADA RECOMMENDATION SEE BELOW Normal [facility] Comment on above: Result Comment: ADA RECOMMENDED LIMIT 4.0 - 6.0 ADA THERAPEUTIC TARGET < 7.0 ACTION SUGGESTED > 7.0 Performed By: #### A 1C #### [facility] [address] [place] [address] Dr. Bebeto Alvarado Glucose [Mass/Vol] 105 mg/dL Normal [facility] Comment on above: Performed By: #### A 1C #### [facility] [address] [place] [address] Dr. Bebeto Alvarado HbA1c (Bld) [Mass fraction] 5.3 % Normal 4.5-6.2 [facility] Comment on above: Performed By: #### A 1C #### [facility] [address] [place] [address] Dr. Bebeto Alvarado IRONon 11-21-2021 Iron [Mass/Vol] 59.0 ug/dL Normal 50.0-170.0 [facility] Comment on above: Performed By: #### A 1C #### [facility] [address] [address] [address] Bebeto Alvarado LIPID PROFILEon 11-21-2021 CHOL-HDL RATIO NORM SEE BELOW Normal [facility] Comment on above: Result Comment: 3.3 - 4.4 LOW RISK 4.4 - 7.1 AVERAGE RISK 7.1 - 11.0 MODERATE RISK >11.0 HIGH RISK Performed By: #### C MP, LIPID #### [facility] [address] [address] [address] Bebeto Alvarado Cholesterol [Mass/Vol] 139 mg/dL Normal <=200 [facility] Comment on above: Performed By: #### C MP, LIPID #### [facility] [address] [place] [address] Dr. Bebeto Alvarado Cholesterol in HDL [Mass/Vol] 35 mg/dL Critically low 40-60 [facility] Comment on above: Performed By: #### C MP, LIPID #### [facility] [address] [place] [address] Dr. Bebeto Alvarado Cholesterol in LDL [Mass/Vol] 69.6 mg/dL Normal [facility] Comment on above: Performed By: #### C MP, LIPID #### [facility] [address] [place] [address] Dr. Bebeto Alvarado Cholesterol.total/Chol esterol in HDL [Mass ratio] 4.0 {ratio} Normal [facility] Comment on above: Performed By: #### C MP, LIPID #### [facility] [address] [place] [address] Dr. Bebeto Alvarado HDL NORMAL > or = 60 mg/dl - LO W CARDIOVASCULAR RISK <40 mg/dl - HIGH CARDIOVASCULAR RISK Normal [facility] Comment on above: Performed By: #### C MP, LIPID #### [facility] [address] [place], [place] [id number] Dr. Bebeto Alvarado LDL CALC NORMAL SEE BELOW Normal [facility] Comment on above: Result Comment: <100 mg/dl OPTIMAL 100 - 129 mg/dl NEAR OR ABOVE OPTIMAL 130 - 159 mg/dl BORDERLINE HIGH 160 - 189 mg/dl HIGH >190 mg/dl VERY HIGH Performed By: #### C MP, LIPID #### [facility] [address] [place] [address] Dr. Bebeto Alvarado Triglyceride [Mass/Vol] 172 mg/dL Critically high <=150 [facility] Comment on above: Performed By: #### C MP, LIPID #### [facility] [address] [address] [address] Bebeto Alvarado VLDL CALC 34.4 mg/dL Normal [facility] Comment on above: Performed By: #### C MP, LIPID #### [facility] [address] [place] [address] Dr. Bebeto Alvarado PROF 14(COMP METB)on 022 Albumin [Mass/Vol] 3.8 g/dL Normal 3.4-5.0 [facility] Comment on above: Performed By: #### C MP, LIPID #### [facility] [address] [place] [address] Dr. Bebeto Alvarado Albumin/Globulin [Mass ratio] 1.1 {ratio} Normal [facility] Comment on above: Performed By: #### C MP, LIPID #### [facility] [address] [place] [address] Dr. Bebeto Alvarado ALP [Catalytic activity/Vol] 96 U/L Normal 46-116 [facility] Comment on above: Performed By: #### C MP, LIPID #### [facility] [address] [place] [address] Dr. Bebeto lAvarado ALT [Catalytic activity/Vol] 25 U/L Normal 14-59 [facility] Comment on above: Performed By: #### C MP, LIPID #### [facility] [address] [place] [address] Dr. Bebeto Alvarado Anion gap [Moles/Vol] 11.8 mmol/L Normal [facility] Comment on above: Performed By: #### C MP, LIPID #### [facility] [address] [place] [address] Dr. Bebeto Alvarado AST [Catalytic activity/Vol] 20 U/L Normal 15-37 [facility] Comment on above: Performed By: #### C MP, LIPID #### [facility] [address] [address] [address] Bebeto Alvarado Bilirubin [Mass/Vol] 0.4 mg/dL Normal 0.2-1.0 [facility] Comment on above: Performed By: #### C MP, LIPID #### [facility] [address] [address] [address] Bebeto Alvarado Calcium [Mass/Vol] 8.8 mg/dL Normal 8.5-10.1 [facility] Comment on above: Performed By: #### C MP, LIPID #### [facility] [address] [address] [address] Bebeto Alvarado Chloride [Moles/Vol] 106 mmol/L Normal 98-107 [facility] Comment on above: Performed By: #### C MP, LIPID #### [facility] [address] [place] [address] Dr. Bebeto Alvarado CO2 [Moles/Vol] 27.0 mmol/L Normal 21.0-32.0 [facility] Comment on above: Performed By: #### C MP, LIPID #### [facility] [address] [place] [address] Dr. Bebeto Alvarado Creatinine [Mass/Vol] 0.97 mg/dL Normal 0.55-1.02 [facility] Comment on above: Performed By: #### C MP, LIPID #### [facility] [address] [place] [address] Dr. Bebeto Alvarado EGFR-AF SUDANESE >60 Normal >=60 [facility] Comment on above: Performed By: #### C MP, LIPID #### [facility] [address] [place] [address] Dr. Bebeto Alvarado EGFR-NON AF SUDANESE 59 mL/min/1.73m2 Critically low >=60 [facility] Comment on above: Performed By: #### C MP, LIPID #### [facility] [address] [place] [address] Dr. Bebeto Alvarado Globulin (S) [Mass/Vol] 3.4 g/dL Normal [facility] Comment on above: Performed By: #### C MP, LIPID #### [facility] [address] [address] [address] Bebeto Alvarado Glucose [Mass/Vol] 103 mg/dL Normal 74-106 [facility] Comment on above: Performed By: #### C MP, LIPID #### [facility] [address] [address] [address] Bebeto Alvarado Potassium [Moles/Vol] 3.8 mmol/L Normal 3.5-5.1 [facility] Comment on above: Performed By: #### C MP, LIPID #### [facility] [address] [address] [address] Bebeto Alvarado Protein [Mass/Vol] 7.2 g/dL Normal 6.4-8.2 [facility] Comment on above: Performed By: #### C MP, LIPID #### [facility] [address] [place] [address] Dr. Bebeto Alvarado Sodium [Moles/Vol] 141 mmol/L Normal 136-145 [facility] Comment on above: Performed By: #### C MP, LIPID #### [facility] [address] [place] [address] Dr. Bebeto Alvarado Urea nitrogen [Mass/Vol] 11.0 mg/dL Normal 7.0-18.0 [facility] Comment on above: Performed By: #### C MP, LIPID #### [facility] [address] [place] [address] Dr. Bebeto Alvarado Urea nitrogen/Creatinine [Mass ratio] 11.3 mg/mg Normal [facility] Comment on above: Performed By: #### C MP, LIPID #### [facility] [address] [place] [address] Dr. Bebeto Alvarado URIC ACID SERUMon 11-21-2021 Urate [Mass/Vol] 7.3 mg/dL Critically high 2.6-6.0 [facility] Comment on above: Performed By: #### A 1C #### [facility] [address] [place] [address] Dr. Bebeto Alvarado VITAMIN B12on 11-21-2021 Cobalamin (Vitamin B12) [Mass/Vol] 2123.0 pg/mL Critically high 193.0-986.0 [facility] Comment on above: Performed By: #### A 1C #### [facility] [address] [address] [address] Bebeto Alvarado Physician Referralon 022 Physician Referral [phone] [id number] Normal [facility] KNEE RIGHT 1 OR 2 VWSon KNEE RIGHT 1 OR 2 VWS [facility] Department of Radiology [address] [place] [address] ======== Patient Name: MICHELLE BE : 1960 Sex: F Age: Race: White Pt. Location: 84 Patient Status: O Ordered Date: 02/08/2019 10:40:00 AM Completed Date: 02/08/2019 10:38 AM Requesting Provider: AHSAN BINGHAM Attending Provider: AHSAN BINGHAM Report Copy To: Signs & Symptoms: S82.001A Unsp fracture of right patella, init for clos fx I10 History: [place] Comments: , , , Ordering Provider - [...] Electronically signed by:Debra Del Cid. Transcribed by: [email or web address], User Resident: Electronically Signed by: DEBRA DEL CID @ 02/08/2019 11:16 AM Normal [facility] Comment on above: Order Comment: , Mabel ws (X-RAY, KNEE): Radiologic Protocol , Weight Bearing?: N , With or Without Brace/Cast/Collar: With , Views (X-RAY, KNEE): Radiologic Protocol , Weight Bearing?: N , With or Without Brace/Cast/Collar: With , , , Ordering Provider - AHSAN BINGHAM PA-C , KNEE RIGHT 1 OR 2 [facility] KNEE RIGHT 1 OR 2 [facility] Department of Radiology [address] [place] [id number] ======== Patient Name: MICHELLE BE : [...] complications. Electronically signed by:Tomasz Stoll. Transcribed by: [email or web address], User Resident: Electronically Signed by: TOMASZ STOLL @ 12/07/2018 11:14 AM Normal [facility] Comment on above: Order Comment: , Mabel ws (X-RAY, KNEE): Radiologic Protocol , Weight Bearing?: N , With or Without Brace/Cast/Collar: With , Views (X-RAY, KNEE): Radiologic Protocol , Weight Bearing?: N , With or Without Brace/Cast/Collar: With , , , Ordering Provider - AHSAN BINGHAM PA-C , KNEE RIGHT 1 OR 2 VWSon KNEE RIGHT 1 OR 2 VWS [facility] Department of Radiology [address] [place] [id number] ======== Patient Name: MICHELLE BE : [...] osteoarthritis Electronically signed by:Anup Ellison. Transcribed by: [email or web address], User Resident: Electronically Signed by: ANUP ELLISON @ 10/06/2018 02:48 PM Normal [facility] Comment on above: Order Comment: , Vie ws (X-RAY, KNEE): Radiologic Protocol , Weight Bearing?: N , With or Without Brace/Cast/Collar: With , Views (X-RAY, KNEE): Radiologic Protocol , Weight Bearing?: N , With or Without Brace/Cast/Collar: With , , , Ordering Provider - AHSAN BINGHAM PA-C , KNEE RIGHT 1 OR 2 [facility] 08-05 KNEE RIGHT 1 OR 2 [facility] Department of Radiology [address] [place] [id number] ======== Patient Name: MICHELLE BE : [...] effusion Electronically signed by:Anup Ellison. Transcribed by: [email or web address], User Resident: Electronically Signed by: ANUP ELLISON @ 08/26/2018 04:56 PM Normal [facility] Comment on above: Order Comment: , Vie ws (X-RAY, KNEE): Radiologic Protocol , Weight Bearing?: N , With or Without Brace/Cast/Collar: With , Views (X-RAY, KNEE): Radiologic Protocol , Weight Bearing?: N , With or Without Brace/Cast/Collar: With , , , Ordering Provider - AHSAN BINGHAM PA-C , KNEE RIGHT 1 OR 2 [facility] 07-06 KNEE RIGHT 1 OR 2 S [facility] Department of Radiology [address] [place] [id number] ======== Patient Name: MICHELLE BE : 1960 Sex: F Age: Race: White Pt. Location: 84 Patient Status: Ordered Date: 07/29/2018 2:10:00 PM Completed Date: 07/29/2018 02:12 PM Requesting Provider: AHSAN BINGHAM Attending Provider: Report Copy To: Signs & Symptoms: S82.001A Unsp fracture of right patella, init for clos fx I10 History: [place] Comments: , , , Ordering Provider - [...] compartment Electronically signed by:Anup Ellison. Transcribed by: [email or web address], User Resident: Electronically Signed by: ANUP ELLISON @ 07/29/2018 03:41 PM Normal [facility] Comment on above: Order Comment: , Vie ws (X-RAY, KNEE): Radiologic Protocol , Weight Bearing?: N , With or Without Brace/Cast/Collar: With , Views (X-RAY, KNEE): Radiologic Protocol , Weight Bearing?: N , With or Without Brace/Cast/Collar: With , , , Ordering Provider - AHSAN BINGHAM PA-C , KNEE RIGHT 3 [facility] 9 KNEE RIGHT 3 [facility] Department of Radiology [address] [place] [id number] ======== Patient Name: MICHELLE BE : 1960 Sex: F Age: Race: White Pt. Location: Patient Status: Ordered Date: 07/15/2018 8:45:00 AM Completed Date: 07/15/2018 08:47 AM Requesting Provider: AHSAN BINGHAM Attending Provider: Report Copy To: Signs & Symptoms: S82.001A Unsp fracture of right patella, init for clos fx I10 History: [place] Comments: , , , Ordering Provider - AHSAN BINGHAM PA-C , Exam: KNEE RIGHT 3 [facility] ======== KNEE RIGHT 3 VWS 07/15/2018 8:47 [...] knee Electronically signed by:Anup Ellison. Transcribed by: [email or web address], User Resident: Electronically Signed by: ANUP ELLISON @ 07/15/2018 03:31 PM Normal [facility] Comment on above: Order Comment: , Rossie ws (X-RAY, KNEE): Radiologic Protocol , Weight Bearing?: N , With or Without Brace/Cast/Collar: With , Views (X-RAY, KNEE): Radiologic Protocol , Weight Bearing?: N , With or Without Brace/Cast/Collar: With , , , Ordering Provider - HASAN BINGHAM PA-C , Operative Reporton 9 Operative Report MR#: [id number] [facility] Pt. Name: Michelle Be Room #: 0C [...] Duarte MD Date Trans: 07/03/2018 04:28 Monse/terry [id number] Normal [facility] *ANAEROBIC CULTUREon 019 *ANAEROBIC CULTURE Clinical Report: (D) Specimen/Source: SWAB/RT KNEE Collected: 07/02/2018 13:53 Status: Final Last Updated: 07/07/2018 08:02 CULT RES (Final) No Anaerobes Isolated 5 Days Normal [facility] Comment on above: Performed By: #### 3 0312 #### [facility] [address] *WOUND CULTUREon 07-02-2018 *WOUND CULTURE Clinical Report: (D) Specimen/Source: WOUND/INTRAOP SPEC Collected: 07/02/2018 13:53 Status: Final Last Updated: 07/07/2018 10:13 (1) #1 RT KNEE GRAM (Final) Rare Polys No Bacteria Seen CULT RES (Final) No Growth Day 5 Normal [facility] Comment on above: Order Comment: #1 RT KNEE Performed By: #### 3 0343 #### [facility] [address] [place] [address], [email or web address]] KNEE RIGHT 1 OR 2 Sri 06-05 KNEE RIGHT 1 OR 2 [facility] Department of Radiology [address] [place] [address] ======== Patient Name: MICHELLE BE [...] PATELLA Exam: KNEE RIGHT 1 OR 2 [facility] ======== KNEE RIGHT 1 OR 2 [facility] 07/02/2018 2:00 PM EDT SIGNS AND SYMPTOMS: ORIF VS PERCUTANEOUS FIXATION RIGHT PATELLA TECHNOLOGIST COMMENTS: 1.58 mins of fluoro used by Dr Escalante LT knee screw fixation revision QUESTION FOR THE RADIOLOGIST: ORIF VS PERCUTANEOUS FIXATION RIGHT PATELLA PROTOCOL: AP(PA) and Lateral views were obtained. COMPARISON: None FINDINGS: Soft tissues: Bones: Joints: IMPRESSION: Documentation Electronically signed by:Debra Del Cid. Transcribed by: [email or web address], User Resident: Electronically Signed by: DEBRA DEL CID @ 07/02/2018 02:03 PM Normal [facility] Comment on above: Order Comment: ORIF VS PERCUTANEOUS FIXATION RIGHT PATELLA POC GLUCOSE LABon 07-02-2018 Glucose [Mass/Vol] 108 mg/dL High 70-100 [facility] Comment on above: Performed By: #### 8 5499 #### [facility] [address] [place] [address], [facility] [[email or web address]] APTTon 06-30-2018 aPTT Coag (Bld) [Time] 30.6 s Normal 25.0-35.0 [facility] Comment on above: Result Comment: ALL RESULTS [...] THIS PURPOSE. Performed By: #### 5 6101, [id number] #### [facility] [address] [facility] [place] [address], [facility] [[email or web address]] BASIC METABOLIC PANELon 06-05 Calcium [Mass/Vol] 9.7 mg/dL Normal 8.6-10.3 [facility] Comment on above: Performed By: #### 0 0071 #### [facility] [address] [facility] [place] [address], [facility] [[email or web address]] Chloride [Moles/Vol] 102 mmol/L Normal 98-107 [facility] Comment on above: Performed By: #### 0 0071 #### [facility] [address] [place] [address], [facility] [[email or web address]] CO2 [Moles/Vol] 28 mmol/L Normal 21-31 [facility] Comment on above: Performed By: #### 0 0071 #### [facility] [address] [place] [address], [facility] [[email or web address]] Creatinine [Mass/Vol] 1.20 mg/dL Normal 0.60-1.20 [facility] Comment on above: Performed By: #### 0 0071 #### [facility] [address] [place] [address], [facility] [[email or web address]] GFR/1.73 sq M predicted among blacks MDRD (S/P/Bld) [Vol rate/Area] 56 ml/min/1.73sq m Abnormal >60 [facility] Comment on above: Performed By: #### 0 0071 #### [facility] [address] [place] [address], [facility] [[email or web address]] GFR/1.73 sq M predicted among non-blacks MDRD (S/P/Bld) [Vol rate/Area] 47 ml/min/1.73sq m Abnormal >60 [facility] Comment on above: Performed By: #### 0 0071 #### [facility] [address] [place] [address], [facility] [[email or web address]] Glucose [Mass/Vol] 97 mg/dL Normal 70-100 [facility] Comment on above: Performed By: #### 0 0071 #### [facility] [address] [facility]. [address] Potassium [Moles/Vol] 4.1 mmol/L Normal 3.5-5.1 [facility] Comment on above: Performed By: #### 0 0071 #### [facility] [address] [place] [address], [facility] [[email or web address]] Sodium [Moles/Vol] 137 mmol/L Normal 136-145 [facility] Comment on above: Performed By: #### 0 0071 #### [facility] [address] [place] [address], [facility] [[email or web address]] Urea nitrogen [Mass/Vol] 19 mg/dL Normal 7-25 [facility] Comment on above: Performed By: #### 0 0071 #### [facility] [address] [facility] [address], [facility] [[email or web address]] CBC W/DIFFon 06-30-2018 ABS BASOPHILS 0.1 10*3/uL Normal 0.0-0.2 [facility] Comment on above: Performed By: #### 5 0103 #### [facility] [address] [facility] [address], [facility] [[email or web address]] ABS IMM GRANS 0.0 10*3/uL Normal 0.0-0.2 [facility] Comment on above: Performed By: #### 5 0103 #### [facility] [address] [facility] [place] [address], [facility] [[email or web address]] ABS NEUTROPHILS 6.4 10*3/uL Normal 1.6-7.6 [facility] Comment on above: Performed By: #### 5 0103 #### [facility] [address] [facility] [place] [address], [facility] [[email or web address]] Basophils/100 WBC (Bld) 0.7 % Normal 0.0-1.0 [facility] Comment on above: Performed By: #### 5 0103 #### [facility] [address] [facility] [place] [address], [facility] [[email or web address]] Eosinophils (Bld) [#/Vol] 0.2 10*3/uL Normal 0.0-0.5 [facility] Comment on above: Performed By: #### 5 0103 #### [facility] [address] [facility] [place] [address], [facility] [[email or web address]] Eosinophils/100 WBC (Bld) 1.5 % Normal 0.0-6.0 [facility] Comment on above: Performed By: #### 5 0103 #### [facility] [address] [facility] [place] [address], [facility] [[email or web address]] Erythrocyte distribution width (RBC) [Ratio] 14.4 % Normal 11.5-15.0 [facility] Comment on above: Performed By: #### 5 0103 #### [facility] [address] [place] [address], [facility] [[email or web address]] Hematocrit (Bld) [Volume fraction] 40.6 % Normal 36.0-45.0 [facility] Comment on above: Performed By: #### 5 0103 #### [facility] [address] [place] [address], [facility] [[email or web address]] Hemoglobin (Bld) [Mass/Vol] 13.3 g/dL Normal 12.0-15.0 [facility] Comment on above: Performed By: #### 5 0103 #### [facility] [address] [place] [address], [facility] [[email or web address]] IMMATURE GRANS 0.4 % Normal 0.0-1.0 [facility] Comment on above: Performed By: #### 5 0103 #### [facility] [address] [facility] [place] [address], [facility] [[email or web address]] Lymphocytes (Bld) [#/Vol] 2.6 10*3/uL Normal 1.2-4.0 [facility] Comment on above: Performed By: #### 5 0103 #### [facility] [address] [place] [address], [facility] [[email or web address]] Lymphocytes/100 WBC (Bld) 26.5 % Normal 20.0-45.0 [facility] Comment on above: Performed By: #### 5 0103 #### [facility] [address] [place] [address], [facility] [[email or web address]] MCH (RBC) [Entitic mass] 27.4 pg Normal 27.0-33.0 [facility] Comment on above: Performed By: #### 5 0103 #### [facility] [address] [place] [address], [facility] [[email or web address]] MCHC (RBC) [Mass/Vol] 32.8 g/dL Normal 32.0-35.0 [facility] Comment on above: Performed By: #### 5 0103 #### [facility] [address] [place] [address], [facility] [[email or web address]] MCV (RBC) [Entitic vol] 83.5 fL Normal 82.0-98.0 [facility] Comment on above: Performed By: #### 5 0103 #### [facility] [address] [facility] [place] [address], [facility] [[email or web address]] Monocytes (Bld) [#/Vol] 0.5 10*3/uL Normal 0.1-1.0 [facility] Comment on above: Performed By: #### 5 0103 #### [facility] [address] MONOS 5.0 % Normal 5.0-12.0 [facility] Comment on above: Performed By: #### 5 0103 #### [facility] [address] Neutrophils/100 WBC (Bld) 65.9 % Normal 40.0-72.0 [facility] Comment on above: Performed By: #### 5 0103 #### [address] Nucleated RBC/100 WBC (Bld) [Ratio] 0 % Normal 0-0 [facility] Comment on above: Performed By: #### 5 0103 #### [address] PLAT CNT 290 10*3/uL Normal 150-400 [facility] Comment on above: Performed By: #### 5 0103 #### [address] RBC (Bld) [#/Vol] 4.86 10*6/uL Normal 3.80-5.00 [facility] Comment on above: Performed By: #### 5 0103 #### [place] [address], [facility] [[email or web address]] WBC (Bld) [#/Vol] 9.68 10*3/uL Normal 4.00-10.60 [facility] Comment on above: Performed By: #### 5 0103 #### [address] KNEE RIGHT 1 OR 2 VWSon 06-05 KNEE RIGHT 1 OR 2 VWS [facility] Department of Radiology [address] [place] [id number] ======== Patient Name: MICHELLE BE : [...] Electronically signed by:Debra Del Cid. Transcribed by: [email or web address], User Resident: Electronically Signed by: DEBRA DEL CID @ 06/30/2018 11:52 AM Normal [facility] Comment on above: Order Comment: , Mabel ws (X-RAY, KNEE): Radiologic Protocol , Weight Bearing?: N , With or Without Brace/Cast/Collar: With , Views (X-RAY, KNEE): Radiologic Protocol , Weight Bearing?: N , With or Without Brace/Cast/Collar: With , , , Ordering Provider - AHSAN BINGHAM PA-C , PROTHROMBIN TIMEon 9 INR Coag (PPP) [Relative time] 0.98 {INR} Normal 0.91-1.16 [facility] Comment on above: Result Comment: [facility] P RECOMMENDED INR FOR WARFARIN [...] CHEST 1995;108:[id number]. Performed By: #### 5 6101, [id number] #### [facility] [address] [facility]. [place] [id number], [facility] [[email or web address]] PT Coag (PPP) [Time] 13.0 s Normal 12.3-14.8 [facility] Comment on above: Result Comment: ALL RESULTS MUST BE INTERPRETED WITH RESPECT TO BLOOD DRAWING ARTIFACT OR DILUTION ERROR OF ANTICOAGULANT AT THE TIME OF SAMPLING. Performed By: #### [id number] #### [facility] [address] [place] [address], [facility] [[email or web address]] KNEE RIGHT 3 Son 9 KNEE RIGHT 3 [facility] Department of Radiology [address] [place] [id number] ======== Patient Name: MICHELLE BE : 1960 Sex: F Age: Race: White Pt. Location: Patient Status: O Ordered Date: 06/15/2018 1:35:00 PM Completed Date: 06/15/2018 01:34 PM Requesting Provider: AMPARO ZHANG Attending Provider: AMPARO ZHANG Report Copy To: ADELAIDA CARRION Signs & Symptoms: M17.11 Unilateral primary osteoarthritis, right knee I10 History: [place] Comments: , Weight Bearing?: Y , Weight [...] effusion Electronically signed by:Anup Ellison. Transcribed by: [email or web address], User Resident: Electronically Signed by: ANUP ELLISON @ 06/15/2018 03:50 PM Normal [facility] Comment on above: Order Comment: , Isaiah ght Bearing?: Y , Weight Bearing?: Y , , , Ordering Provider - AMPARO REDDY-Keiry , Vital Signs Date Time Vital Sign Value Performing Clinician Facility 05-24-2024 08:19-0500 Body height 162.6 cm [employer] Work Phone: [facility] 05-24-2024 08:19-0500 Body mass index (BMI) [Ratio] 50.29 kg/m2 [employer] Work Phone: [facility] 05-24-2024 08:19-0500 Body weight 132.9 kg [employer] Work Phone: [facility] 05-24-2024 08:19-0500 Diastolic blood pressure 72 mm[Hg] Juany Lowe PA Work Phone: [facility] 05-24-2024 08:19-0500 Heart rate 62 /min Juany Lowe PA Work Phone: [facility] 05-24-2024 08:19-0500 Respiratory rate 16 /min Juany Lowe PA Work Phone: [facility] 05-24-2024 08:19-0500 SaO2% (BldA) [Mass fraction] 100 % Juany Lowe PA Work Phone: [facility] 05-24-2024 08:19-0500 Systolic blood pressure 110 mm[Hg] Juany Lowe PA Work Phone: [facility] 05-12-2024 10:04-0500 Body height 162.6 cm Adelaida Aichholz [employer] Work Phone: [facility] 05-12-2024 10:04-0500 Body mass index (BMI) [Ratio] 49.16 kg/m2 Adelaida Aichholz [employer] Work Phone: [facility] 05-12-2024 10:04-0500 Body temperature 98.49 [degF] Adelaida Aichholz [employer] Work Phone: [facility] 05-12-2024 10:04-0500 Body weight 129.91 kg Adelaida Aichholz [employer] Work Phone: [facility] 05-12-2024 10:04-0500 Diastolic blood pressure 78 mm[Hg] Adelaida Aichholz [employer] Work Phone: [facility] 05-12-2024 10:04-0500 Heart rate 80 /min Adelaida Aichholz [employer] Work Phone: [facility] 05-12-2024 10:04-0500 Respiratory rate 20 /min Adelaida Aichholz [employer] Work Phone: [facility] 05-12-2024 10:04-0500 SaO2% (BldA) [Mass fraction] 98 % Adelaida Merryholz [employer] Work Phone: [facility] 05-12-2024 10:04-0500 Systolic blood pressure 118 mm[Hg] Adelaida Aichholz [employer] Work Phone: [facility] 03-16-2024 09:53-0500 Body height 162.6 cm Adelaida Aichholz [employer] Work Phone: [facility] 03-16-2024 09:53-0500 Body mass index (BMI) [Ratio] 48.41 kg/m2 Adelaida Aichholz [employer] Work Phone: [facility] 03-16-2024 09:53-0500 Body temperature 98.01 [degF] Adelaida Yinghholz [employer] Work Phone: [facility] 03-16-2024 09:53-0500 Body weight 127.91 kg Adelaida Aichholz [employer] Work Phone: [facility] 03-16-2024 09:53-0500 Diastolic blood pressure 80 mm[Hg] Adelaida Aichholz [employer] Work Phone: [facility] 03-16-2024 09:53-0500 Heart rate 79 /min Adelaida Aichholz [employer] Work Phone: [facility] 03-16-2024 09:53-0500 Respiratory rate 18 /min Adelaida Aichholz [employer] Work Phone: [facility] 03-16-2024 09:53-0500 SaO2% (BldA) [Mass fraction] 98 % Adelaida Aichholz [employer] Work Phone: [facility] 03-16-2024 09:53-0500 Systolic blood pressure 120 mm[Hg] Adelaida Aichholz [employer] Work Phone: [facility] 03-10-2024 15:20-0500 Body height 162.6 cm Rachel REDDY Work Phone: [facility] 03-10-2024 15:20-0500 Body mass index (BMI) [Ratio] 48.41 kg/m2 Rachel Stephen PA Work Phone: [facility] 03-10-2024 15:20-0500 Body weight 127.91 kg Rachelgeorgette Mitchell PA Work Phone: [facility] 03-10-2024 15:20-0500 Diastolic blood pressure 68 mm[Hg] Rachel Stephen PA Work Phone: [facility] 03-10-2024 15:20-0500 Heart rate 74 /min Rachel Hill PA Work Phone: [facility] 03-10-2024 15:20-0500 Respiratory rate 16 /min Rachelgeorgette Mitchell PA Work Phone: [facility] 03-10-2024 15:20-0500 SaO2% (BldA) [Mass fraction] 98 % Rachel Stephen PA Work Phone: [facility] 03-10-2024 15:20-0500 Systolic blood pressure 102 mm[Hg] Rachel Stephen PA Work Phone: [facility] 03-01-2024 12:48-0500 Body height 162.6 cm Juany Lowe PA Work Phone: [facility] 03-01-2024 12:48-0500 Body mass index (BMI) [Ratio] 48.92 kg/m2 Juany Lowe PA Work Phone: [facility] 03-01-2024 12:48-0500 Body weight 129.28 kg Juany Lowe PA Work Phone: [facility] 03-01-2024 12:48-0500 Diastolic blood pressure 88 mm[Hg] Juany Lowe PA Work Phone: [facility] 03-01-2024 12:48-0500 Systolic blood pressure 140 mm[Hg] Juany Lowe PA Work Phone: [facility] 02-16-2024 11:18-0500 Body height 162.6 cm Adelaida Carrion NP Work Phone: [facility] 02-16-2024 11:18-0500 Body mass index (BMI) [Ratio] 50.77 kg/m2 Adelaidamonse Sousaholz [employer] Work Phone: [facility] 02-16-2024 11:18-0500 Body temperature 98.49 [degF] Adelaida Merryholz [employer] Work Phone: [facility] 02-16-2024 11:18-0500 Body weight 134.17 kg Adelaida Yinghholz [employer] Work Phone: [facility] 02-16-2024 11:18-0500 Diastolic blood pressure 82 mm[Hg] Adelaida Aichholz [employer] Work Phone: [facility] 02-16-2024 11:18-0500 Heart rate 69 /min Adelaida Merryholz [employer] Work Phone: [facility] 02-16-2024 11:18-0500 Respiratory rate 20 /min Adelaida Merryholz [employer] Work Phone: [facility] 02-16-2024 11:18-0500 SaO2% (BldA) [Mass fraction] 98 % Adelaida Yinghholz [employer] Work Phone: [facility] 02-16-2024 11:18-0500 Systolic blood pressure 122 mm[Hg] Adelaida Merryholz [employer] Work Phone: [facility] 01-28-2024 13:46-0400 Body height 162.6 cm Adelaida Merryholz [employer] Work Phone: [facility] 01-28-2024 13:46-0400 Body mass index (BMI) [Ratio] 48.99 kg/m2 Adelaida Yinghholz [employer] Work Phone: [facility] 01-28-2024 13:46-0400 Body temperature 98.71 [degF] Adelaida Merryholz [employer] Work Phone: [facility] 01-28-2024 13:46-0400 Body weight 129.46 kg Adelaida Yinghholz [employer] Work Phone: [facility] 01-28-2024 13:46-0400 Diastolic blood pressure 78 mm[Hg] Adelaida Aichholz [employer] Work Phone: [facility] 01-28-2024 13:46-0400 Heart rate 81 /min Adelaida Aichholz [employer] Work Phone: [facility] 01-28-2024 13:46-0400 Respiratory rate 18 /min Adelaida Aichholz [employer] Work Phone: [facility] 01-28-2024 13:46-0400 SaO2% (BldA) [Mass fraction] 99 % Adelaida Aichholz [employer] Work Phone: [facility] 01-28-2024 13:46-0400 Systolic blood pressure 110 mm[Hg] Adelaida Aichholz [employer] Work Phone: [facility] 01-04-2024 09:39-0400 Body height 162.6 cm Adelaida Aichholz [employer] Work Phone: [facility] 01-04-2024 09:39-0400 Body mass index (BMI) [Ratio] 48.75 kg/m2 Adelaida Aichholz [employer] Work Phone: [facility] 01-04-2024 09:39-0400 Body temperature 97.81 [degF] Adelaida Aichholz [employer] Work Phone: [facility] 01-04-2024 09:39-0400 Body weight 128.82 kg Adelaida Aichholz [employer] Work Phone: [facility] 01-04-2024 09:39-0400 Diastolic blood pressure 78 mm[Hg] Adelaida Aichholz [employer] Work Phone: [facility] 01-04-2024 09:39-0400 Heart rate 67 /min Adelaida Aichholz [employer] Work Phone: [facility] 01-04-2024 09:39-0400 Respiratory rate 19 /min Adelaida Aichholz [employer] Work Phone: [facility] 01-04-2024 09:39-0400 SaO2% (BldA) [Mass fraction] 99 % Adelaida Sousabob [employer] Work Phone: [facility] 01-04-2024 09:39-0400 Systolic blood pressure 116 mm[Hg] Adelaida Sousabob [employer] Work Phone: [facility] 12-09-2023 10:14-0400 Body height 162.6 cm Juany Gillmor [employer] Work Phone: [facility] 12-09-2023 10:14-0400 Body mass index (BMI) [Ratio] 48.92 kg/m2 Juany Samanthamor [employer] Work Phone: [facility] 12-09-2023 10:14-0400 Body weight 129.28 kg Juany Samanthamor [employer] Work Phone: [facility] 12-09-2023 10:14-0400 Diastolic blood pressure 78 mm[Hg] Juany Gillmor [employer] Work Phone: [facility] 12-09-2023 10:14-0400 SaO2% (BldA) [Mass fraction] 97 % Juany Samanthamor [employer] Work Phone: [facility] 12-09-2023 10:14-0400 Systolic blood pressure 122 mm[Hg] Juany Samanthamor [employer] Work Phone: [facility] 12-08-2023 15:24-0400 Body height 162.6 cm Sonam Clevelandnagel [employer] Work Phone: [facility] 12-08-2023 15:24-0400 Body mass index (BMI) [Ratio] 48.92 kg/m2 Sonam Windnagel [employer] Work Phone: [facility] 12-08-2023 15:24-0400 Body weight 129.28 kg Sonam Windnagel [employer] Work Phone: [facility] 12-08-2023 15:24-0400 Diastolic blood pressure 77 mm[Hg] Sonam Windnagel [employer] Work Phone: [facility] 12-08-2023 15:24-0400 Heart rate 72 /min Sonam Brown [employer] Work Phone: [facility] 12-08-2023 15:24-0400 Systolic blood pressure 134 mm[Hg] Sonam Brown [employer] Work Phone: [facility] 05-18-2023 16:30-0500 Body height 162.6 cm Adelaida Kelsiez [employer] Work Phone: [facility] 05-18-2023 16:30-0500 Body mass index (BMI) [Ratio] 47.89 kg/m2 Adelaida Merryholz [employer] Work Phone: [facility] 05-18-2023 16:30-0500 Body temperature 97.3 [degF] Adelaida Kelsiez [employer] Work Phone: [facility] 05-18-2023 16:30-0500 Body weight 126.55 kg Adelaida Yinghholz [employer] Work Phone: [facility] 05-18-2023 16:30-0500 Diastolic blood pressure 80 mm[Hg] Adelaida Yinghholz [employer] Work Phone: [facility] 05-18-2023 16:30-0500 Heart rate 76 /min Adelaida Yinghholz [employer] Work Phone: [facility] 05-18-2023 16:30-0500 Respiratory rate 19 /min Adelaida Yinghholz [employer] Work Phone: [facility] 05-18-2023 16:30-0500 SaO2% (BldA) [Mass fraction] 97 % Adelaida Yinghholz [employer] Work Phone: [facility] 05-18-2023 16:30-0500 Systolic blood pressure 134 mm[Hg] Adelaida Aichholz [employer] Work Phone: [facility] 03-23-2023 12:10-0500 Diastolic blood pressure 98 mm[Hg] Adelaida Aichholz Work Phone: [facility] 03-23-2023 12:10-0500 Heart rate 76 /min Adelaida Sousaholz Work Phone: [facility] 03-23-2023 12:10-0500 Respiratory rate 18 /min Adelaida Sousaholz Work Phone: [facility] 03-23-2023 12:10-0500 SaO2% (BldA) [Mass fraction] 99 % Adelaida Sousaholnena Work Phone: [facility] 03-23-2023 12:10-0500 Systolic blood pressure 162 mm[Hg] Adelaida Sousaholz Work Phone: [facility] 03-23-2023 10:53-0500 Body height 162.56 cm Adelaida Carrion Work Phone: [facility] 03-23-2023 10:53-0500 Body weight 125.64 kg Adelaida Carrion Work Phone: [facility] 12-19-2022 14:55-0400 Body height 162.56 cm Rosemary Marita Other [employer] Other 12-19-2022 14:55-0400 Body mass index (BMI) [Ratio] 47.85 kg/m2 Rosemary Kirkland Other [employer] Other 12-19-2022 14:55-0400 Body temperature 97.8 [degF] Rosemary Kirkland Other [employer] Other 12-19-2022 14:55-0400 Body weight 126.46 kg Rosemary Kirkland Other [employer] Other 12-19-2022 14:55-0400 Respiratory rate 20 /min Rosemary Kirkland Other [facility] [employer] Other 12-19-2022 14:55-0400 SaO2% (BldA) [Mass fraction] 95 % Rosemary Marita Other [employer] [facility] [employer] Other 11-20-2022 13:12-0400 Body temperature 97.7 [degF] Adelaida Aichholz Work Phone: [facility] 11-20-2022 13:12-0400 SaO2% (BldA) [Mass fraction] 96 % Adelaida Aichholz Work Phone: [facility] 11-20-2022 07:44-0400 Diastolic blood pressure 90 mm[Hg] Adelaida Aichholz Work Phone: [facility] 11-20-2022 07:44-0400 Heart rate 103 /min Adelaida Aichholz Work Phone: [facility] 11-20-2022 07:44-0400 Systolic blood pressure 152 mm[Hg] Adelaida Aichholz Work Phone: [facility] 11-19-2022 20:00-0400 Respiratory rate 18 /min Adelaida Aichholz Work Phone: [facility] 11-18-2022 15:18-0400 Body height 162.56 cm Adelaida Aichholz Work Phone: [facility] 11-17-2022 09:00-0400 Body weight 122.92 kg Adelaida Aichholz Work Phone: [facility] Encounters Encounter Date Encounter Type Care Provider Facility Start: 06-16-2024 ambulatory Eduardo Monk Facility:[facility] Start: 06-14-2024 End: 06-14-2024 Refill Adelaida Aicbostonz [employer] Work Phone: [facility] Comment on [...] extremity pain Start: 05-24-2024 End: 05-24-2024 ambulatory JAUNY LOWGeorgette Not Available Start: 05-23-2024 End: 05-23-2024 ambulatory Syeda Mancuso MD Facility: [facility] Start: 05-12-2024 End: 05-12-2024 Bamboo flowsheet Adelaida Carrion NP Work Phone: [facility] Start: 05-12-2024 End: 05-12-2024 Bamboo flowsheet Adelaida Carrion [employer] Work Phone: [facility] Start: 05-12-2024 [...] End: 04-12-2024 Refill Juany REDDY Work Phone: [facility] [address] Comment on above: Transient alteration of awareness (Primary Dx); Restless leg Start: 04-07-2024 End: 04-07-2024 Patient encounter procedure David Foster PhD Work Phone: [facility] Comment on above: Metabolic encephalop athy (Primary Dx); Memory change; Altered mental status, unspecified altered mental status type; Concentration deficit; PTSD (post-traumatic stress disorder) (CMS/HCC); Bipolar affective disorder, remission status unspecified (CMS/HCC); Family history of dementia; 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[facility]/HCC); OSMANY (obstructive sleep apnea) Start: 04-07-2024 End: 04-07-2024 ambulatory ADELAIDA CARRION Not Available Start: 03-22-2024 End: 03-22-2024 ambulatory RACHEL MITCHELL Not Available Start: 03-16-2024 End: 03-16-2024 Bamboo flowsheet Adelaida Carrion [employer] Work Phone: [facility] Start: 03-16-2024 End: 03-16-2024 Bamboo flowsheet Adelaida Carrion [employer] Work Phone: [facility] Start: 03-16-2024 End: 03-16-2024 Office outpatient visit 25 minutes Adelaida Carrion [employer] Work Phone: [facility] Comment on [...] End: 03-16-2024 Telephone encounter David Norman MA [facility] Start: 03-14-2024 End: 03-14-2024 [employer] Protector [employer] Stylesightheet David Foster PhD Work Phone: [facility] Start: 03-14-2024 End: 03-14-2024 BamTNT Crowdizabela Foster PhD Work Phone: [facility] Start: 03-14-2024 End: 03-14-2024 ambulatory DAVID FOSTER Not Available Start: 03-14-2024 End: 03-14-2024 Patient encounter procedure David Foster PhD Work Phone: [facility] Comment on above: Altered mental statu s, unspecified altered mental status type (Primary Dx); Memory change; Concentration deficit; 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 (CMS/HCC); PTSD (post-traumatic stress disorder) (CMS/HCC); Bipolar affective disorder, remission status unspecified (CMS/HCC); Family history of dementia Start: 03-10-2024 End: 03-10-2024 Office outpatient visit 25 minutes Rachel REDDY Work Phone: [facility] Comment on above: Altered mental statu s, unspecified altered mental status type (Primary Dx); Restless leg; 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CMS/HCC); OSMANY (obstructive sleep apnea) Start: 03-10-2024 End: 03-10-2024 ambulatory RACHEL MITCHELL Not Available Start: 03-03-2024 End: 03-07-2024 Evaluation and management of inpatient Adelaida Carrion Facility:[facility] Start: 03-02-2024 End: 03-04-2024 Clinisync Result Encounter Generic External Data Provider [facility] External Department Unsolicited Start: 03-02-2024 End: 03-04-2024 Clinisync Result Encounter Generic External Data Provider [facility] External Department Unsolicited Start: 03-02-2024 End: 03-02-2024 Refill Adelaida Carrion [employer] Work Phone: [facility] Comment on [...] Start: 02-28-2024 End: 02-29-2024 Refill Adelaida Carrion [employer] Work Phone: [facility] Comment on above: Allergic rhinitis, u nspecified Start: 02-24-2024 End: 02-24-2024 Refill Adelaida Carrion [employer] Work Phone: [facility] Comment on above: Essential (primary) hypertension [...] End: 02-16-2024 Patient encounter procedure Adelaida Aichholz [employer] Work Phone: [facility] Start: 02-16-2024 End: 02-16-2024 Periodic preventive med est patient 40-64yrs Adelaida Carrion [employer] Work Phone: [facility] Comment on above: Well woman exam with routine gynecological exam (Primary Dx); Morbid obesity (CMS/HCC) Start: 02-16-2024 End: 02-16-2024 ambulatory ADELAIDA SHEYLA Not Available Start: 02-04-2024 End: 02-04-2024 Refill Sonamolvin Brown [employer] Work Phone: [facility] [place] [facility] Comment on above: Restless leg Start: 01-28-2024 End: 01-28-2024 Bamboo flowsheet Adelaida Carrion [employer] Work Phone: [facility] Start: 01-28-2024 End: 01-28-2024 Bamboo flowsheet Adelaida Sheyla [employer] Work Phone: [facility] Start: 01-28-2024 End: 01-28-2024 Office outpatient visit 15 minutes Adelaida Carrion [employer] Work Phone: [facility] Comment on [...] End: 01-05-2024 Clinisync Result Encounter Adelaida Carrion [employer] Work Phone: [facility] External Department Unsolicited Start: 01-05-2024 End: 01-05-2024 Clinisync Result Encounter Adelaiad Sousabob [employer] Work Phone: [facility] External Department Unsolicited Start: 01-04-2024 End: 01-04-2024 Bamboo flowsheet Adelaida Iglesiasnena [employer] Work Phone: [facility] Start: 01-04-2024 End: 01-04-2024 Bamboo flowsheet Adelaida Sousabob [employer] Work Phone: [facility] Start: 01-04-2024 End: 01-04-2024 Office outpatient visit 25 minutes Adelaida Sousabob [employer] Work Phone: [facility] Comment on above: Bilateral lower extr emity edema (Primary Dx); Essential (primary) hypertension (CMS/HCC); Allergic rhinitis, unspecified; OSMANY (obstructive sleep apnea); Primary hypertension (CMS/HCC); Morbid obesity (CMS/HCC) Start: 01-04-2024 End: 01-04-2024 ambulatory ADELAIDA SOUSAKUSHNena Not Available Start: 12-30-2023 End: 12-30-2023 Refill Adelaida Carrion [employer] Work Phone: [facility] Comment on above: Lower extremity elis a Start: 12-09-2023 End: 12-09-2023 Office outpatient visit 25 minutes Juany Caballero [employer] Work Phone: [employer] [facility] [place] [address] Comment on above: OSMANY (obstructive sle ep apnea) (Primary Dx); Restless leg Start: 12-09-2023 End: 12-09-2023 ambulatory JUANY NEIL Not Available Start: 12-08-2023 End: 12-08-2023 ambulatory SONAM Keiry BROWN Not Available Start: 12-08-2023 End: 12-08-2023 Office outpatient visit 25 minutes Sonam Brown [employer] Work Phone: [employer] [facility] [place] [address] Comment on above: 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CMS /HCC) (Primary Dx); Restless leg; Metabolic encephalopathy Start: 12-08-2023 End: 12-08-2023 Bamboo flowsheet Sonam Brown [employer] Work Phone: [facility] Start: 12-08-2023 End: 12-08-2023 Bamboo flowsheet Sonam C Kevin [employer] Work Phone: [facility] Start: 11-27-2023 End: 11-27-2023 Refill Adelaida Aichholz [employer] Work Phone: [facility] Comment on [...] 06-29-2023 End: 06-29-2023 ambulatory Syeda Mancuso MD Facility:[facility] Start: 05-21-2023 Refill Adelaida Aichholz [employer] Work Phone: [facility] Comment on above: Acute cystitis with hematuria (Primary Dx) Start: 05-18-2023 End: 05-18-2023 Office outpatient visit 25 minutes Adelaida Aichholz [employer] Work Phone: [facility] Comment on [...] encounter Start: 05-18-2023 Bamboo flowsheet Adelaida Carrion [employer] Work Phone: [facility] Start: 05-18-2023 Bamboo flowsheet Adelaida Sousabob [employer] Work Phone: [facility] Start: 05-18-2023 End: 05-18-2023 Patient encounter procedure Adelaida Sousakushnena [employer] Work Phone: [facility] Start: 03-23-2023 End: 03-23-2023 Admission to same day surgery center Adelaida Sousabob Work Phone: [facility] Work Phone: Start: 03-23-2023 End: 03-23-2023 ambulatory Adelaida Mcnair Yingsherinekushnena Work Phone: [facility] Work Phone: Start: 02-12-2023 End: 02-12-2023 ambulatory Jace Graham Other [employer] Other Start: 02-12-2023 Telephone encounter Jace CORADO G Neuropsychology Medical Consultant Start: 12-19-2022 End: 12-19-2022 ambulatory Rosemary Kirkland Other [employer] Other Start: 12-19-2022 Office outpatient ne w 10 minutes Roesmary Kirkland [facility] José Miguel Start: 11-17-2022 End: 11-20-2022 Evaluation and management of inpatient Adelaida Carrion Work Phone: [facility] Work Phone: Start: 09-04-2022 ambulatory ARIAN JOHNSON . Facili ty:[facility] Start: 08-26-2022 ambulatory NARENDRANATH LAKSHMIPATHY . 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 ADELAIDA CARRION Facility:[facility] Start: 07-15-2022 End: 07-15-2022 [...] End: 07-03-2018 Patient encounter procedure SUKI EBSANDRA Facility:[facility] C Procedures Date Procedure Procedure Detail Performing Clinician Start: 03-02-2024 BLOOD CULTURE 1 Generic External Data Provider Start: 02-16-2024 IGP,APTIMA HPV,AGE GDLN Adelaida Carrion [employer] Work Phone: Start: 01-28-2024 Urnls dip stick/tabl et rgnt non-auto w/o micrscp Adelaida Carrion [employer] Work Phone: Start: 01-21-2024 MHPT CULT,URINE Generic External Data Provider Start: 01-05-2024 ALL BASIC METABOLIC PANEL Adelaida Carrion [employer] Work Phone: Start: 09-18-2023 Mammography Adelaida ramos [employer] Work Phone: Start: 03-23-2023 Screening colonoscopy L oneal Sheyla Work Phone: Start: 03-23-2023 Colonoscopy Adelaida ramos [employer] Work Phone: Start: 09-15-2022 Mammography Adelaida ramos [employer] Work Phone: Start: 08-28-2022 Microscopic observat ion [Identifier] in Cervix by Cyto stain Adelaida Carrion [employer] Work Phone: Start: 07-02-2018 ANESTH KNEE AREA [...] [facility] [address] [place] [address] Adelaida Carrion, BRIANA [address] [place] [id number] [facility] Start: 08-11-2024 End: 08-11-2024 Patient encounter procedure 08/11/2024 10:30 AM EDT Office Visit [facility] [id number] [place] [address] Adelaida Carrion NP [address] [place] [phone] [facility] Start: 07-26-2024 End: 07-26-2024 Patient encounter procedure 07/26/2024 11:00 AM EDT Office Visit [place] [address] [place] [phone] Juany Leggett PA [address] [place], [place] [phone] [place] Start: 06-22-2024 End: 06-22-2024 Patient encounter procedure 06/22/2024 11:20 AM EDT Office Visit [facility] [place] [facility] [address] [place] [phone] Juany Leggett PA [address] [place], [place] [id number] [facility] [place] [facility] Start: 06-15-2024 End: 06-15-2024 Patient encounter procedure 06/15/2024 9:20 AM EDT Office Visit [facility] [address] [place] [address] Adelaida Carrion, BRIANA [address] [place] [address] [facility] Start: 05-24-2024 End: 05-24-2024 [facility] Comment on above: Arrived Start: 05-18-2024 Medicare Annual Well ness (AWV) Medicare Annual Wellness (AWV) [facility] Start: 05-12-2024 End: 05-12-2024 Patient encounter procedure [facility] Comment on above: Primary hypertension (CMS/HCC) (Primary Dx); Chronic kidney disease, stage 3a (HCC) (CMS/HCC); Morbid (severe) obesity due to excess calories (CMS/HCC); Body mass index (BMI) 45.0-49.9, adult (CMS/HCC); OSMANY (obstructive sleep apnea); Hemiparesis, right (CMS/HCC); Gastroesophageal reflux disease, unspecified whether esophagitis present; Metabolic encephalopathy Start: 04-07-2024 End: 04-07-2024 Patient encounter procedure 04/07/2024 12:30 PM EST Office Visit [facility] [address] [phone] [facility] Start: 04-04-2024 End: 04-04-2024 Patient encounter procedure 04/04/2024 1:20 PM EST Office Visit [facility] [address] [place] [address] Adelaida Carrion NP [address] [place] [phone] [facility] Start: 03-22-2024 End: 03-22-2024 Clinical Support 03/22/2024 10:00 AM EST Clinical Support [facility] [place] [facility] [address] [address] [place] [phone] [facility] [place] [address] Start: 03-16-2024 End: 03-16-2024 Patient encounter procedure [facility] Comment on above: Metabolic encephalop athy (Primary Dx); OSMANY (obstructive sleep apnea); Morbid obesity (CMS/HCC); Bilateral lower extremity edema; Tobacco dependence; Bipolar disorder with severe depression (CMS/HCC); At risk for polypharmacy; Anxiety Start: 03-14-2024 End: 03-14-2024 Patient encounter procedure 03/14/2024 10:00 AM EST Office Visit [facility] [address] [facility] [address] [place] [address] David Foster, PhD [address] [place], [place] [id number] [facility] Start: 03-11-2024 End: 03-11-2025 EEG 2 Hour Routine EEG 2 Hour Routine Neurology Routine Altered mental status, unspecified altered mental status type Expected: 03/11/2024 (Approximate), Expires: 03/11/2025 [facility] Work Phone: Comment on above: Expected: 03/11/2024 (Approximate), Expires: 03/11/2025 Start: 03-10-2024 End: 03-10-2024 Patient encounter procedure 03/10/2024 3:40 PM EST Office Visit [facility] [address] [place] [phone] Rachel Mitchell PA [address] [place] [address] [facility] Start: 03-01-2024 End: 03-01-2024 Patient encounter procedure 03/01/2024 12:00 PM EST Office Visit [facility] [place] [facility] [address] [place] [address] Juany Leggett PA [address] [place] [address] [facility] [place] [facility] Start: 02-29-2024 End: 02-29-2024 Patient encounter procedure 02/29/2024 2:40 PM EST Office Visit [facility] [place] [address] [facility] [place] [address] Sonam Brown, BANQUET CAPTAIN [address] [place] [address] [facility] [place] [facility] Start: 02-16-2024 End: [...] procedure 02/16/2024 11:30 AM EST [facility] [address] [place] [address] Adelaida Carrion NP [address] [place] [address] [facility] Start: 02-04-2024 Influenza vaccination Influenza Vacc ine (#1) [facility] Comment on above: Postponed from 12/05 (Patient Does Not Have Time) Start: 01-28-2024 End: 01-27-2025 URINARY TRACT INFECTION (HTRX) URINARY TRACT INFECTION (HTRX) Lab Routine Acute cystitis without hematuria Expected: 01/28/2024 (Approximate), Expires: 01/27/2025 [facility] Work Phone: Comment on above: Expected: 01/28/2024 (Approximate), Expires: 01/27/2025 Start: 01-28-2024 End: 01-28-2024 Patient encounter procedure [facility] Comment on above: Tobacco dependence ( [...] [place] [address] [place] [address] Juany Caballero NP [address] [place] [facility] [address] Start: 12-08-2023 End: 12-08-2023 Patient encounter procedure 12/08/2023 3:20 PM EDT Office Visit [facility] [place] [facility] [address] [place] [address] Sonam Brown NP [address] [place], [place] [phone] [facility] [place] [address] Start: 09-16-2023 Screening for malign ant neoplasm of breast Mammogram [facility] Start: 08-17-2023 End: 08-17-2023 Patient encounter procedure 08/17/2023 9:20 AM EDT Office Visit [facility] [address] [place] [phone] Adelaida Carrion NP [address] [place] [phone] [facility] Start: 05-22-2023 End: 05-22-2023 Patient encounter procedure 05/22/2023 8:45 AM EST Office Visit [facility] [address] [place] [address] Travon Hines PA [address] [facility] [address] [place] [address] [facility] Start: 05-18-2023 End: 05-18-2023 Patient encounter procedure 05/18/2023 4:30 PM EST Office Visit [facility] [address] [place] [phone] Adelaida Carrion NP [address] [place] [address] Arrived [facility] Comment on above: Arrived Start: 05-18-2023 End: 05-18-2024 XR Hip - left 3 Views XR hip left 2 or 3 views Imaging Routine Left hip pain Expected: 05/18/2023 (Approximate), Expires: 05/18/2024 [facility] Work Phone: Comment on above: Expected: 05/18/2023 (Approximate), Expires: 05/18/2024 Start: 03-23-2023 [facility] Start: 11-20-2022 [facility] Start: 11-18-2022 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 [facility] Start: 11-17-2022 Hospital admission [facility] Start: 11-17-2022 [facility] Start: 12-06-1991 Screening for malign ant neoplasm of cervix HPV/Cotest [facility] Start: 1960 Medicare Annual Well ness (AWV) Medicare Annual Wellness (AWV) [facility] Start: 1960 Screening for malign ant neoplasm of colon [facility] BLOOD CULTURE 1 BLOOD CULTURE 1 Lab Routine 03/02/2024 3:20 AM EST [facility] Patient Education [facility] Work Phone: Patient referral [facility] Work Phone: [facility] Immunizations Immunization Date Immunization Notes Care Provider Fa hilda 01-28-2024 Influenza, injectabl e, Madin Grady Canine Kidney, preservative free, quadrivalent Adelaida Aichholz BANQUET CAPTAIN Work Phone: [facility] 08-17-2023 zoster vaccine recombinant Adelaida Aichholz [employer]ANQUET CAPTAIN Work Phone: [facility] 02-13-2023 influenza, injectabl e, quadrivalent, preservative free Adelaida Aichholz BANQUET CAPTAIN Work Phone: [facility] 02-13-2023 SARS-COV-2 (COVID-19 ) vaccine, mRNA, spike protein, LNP, PF, 50 mcg/0.5 mL Adelaida Aichholz BANQUET CAPTAIN Work Phone: [facility] 02-13-2023 influenza virus vaccine, unspecified formulation Adelaida Aichholz BANQUET CAPTAIN Work Phone: [facility] 02-19-2022 diphtheria, tetanus toxoids and pertussis vaccine Adelaida Aichholz BANQUET CAPTAIN Work Phone: [facility] 03-02-2021 Moderna SARS-CoV-2 Vaccination Adelaida Aichholz BANQUET CAPTAIN Work Phone: [facility] 08-24-2020 Moderna SARS-CoV-2 Vaccination Adelaida Aichholz BANQUET CAPTAIN Work Phone: [facility] 07-27-2020 Moderna SARS-CoV-2 Vaccination Adelaida Aichholz BANQUET CAPTAIN Work Phone: [facility] 05-28-2018 influenza, injectabl e, quadrivalent, preservative free Adelaida Aichholz Work Phone: [facility] 2017 pneumococcal conjuga te vaccine, 13 valent Adelaida Aichholz BANQUET CAPTAIN Work Phone: [facility] Payers Date Payer Category Payer Medicare [id number] 2022 Self-pay [id number] 2022 Medicare [id number] 2022 Medicare (Managed Care) [facility] [id number] 2008 Unknown [id number] 1961 Unknown [id number] 2.16.840.1.577453.3.579.2 .647 1961 Unknown [id number] 2.16.840.1.460037.3.579.2 .593 1961 Unknown [id number] 2.16.840.1.914035.3.579.2 .593 1961 Unknown [id number] 2.16.840.1.252708.3.579.2 .593 1961 Unknown [id number] 2.16.840.1.311894.3.579.2 .593 1961 Unknown [id number] 2.16.840.1.124844.3.579.2 .593 1961 Unknown [id number] 2.16.840.1.057572.3.579.2 .593 1961 Unknown [id number] 2.16.840.1.252289.3.579.2 .593 1961 Unknown [id number] 2.16.840.1.048522.3.579.2 .593 1961 Unknown [id number] 2.16.840.1.399544.3.579.2 .593 1961 Unknown [id number] 2.16.840.1.855836.3.579.2 .593 1961 Unknown [id number] 2.16.840.1.687825.3.579.2 .593 1961 Unknown [id number] 2.16.840.1.501568.3.579.2 .593 1961 Unknown [id number] 2.16.840.1.746311.3.579.2 .593 1961 Unknown [id number] 2.16.840.1.616273.3.579.2 .593 1961 Unknown [id number] 2.16.840.1.515505.3.579.2 .593 1961 Unknown [id number] 2.16.840.1.164323.3.579.2 .593 1961 Unknown [id number] 2.16.840.1.600818.3.579.2 .593 1961 Unknown [id number] 2.16.840.1.957285.3.579.2 .593 1961 Unknown [id number] 2.16.840.1.849291.3.579.2 .593 1961 Unknown [id number] 2.16.840.1.834347.3.579.2 .593 1961 Unknown [id number] 2.16.840.1.340754.3.579.2 .593 1961 Unknown [id number] 2.16.840.1.439592.3.579.2 .593 1961 Unknown [id number] 2.16.840.1.316399.3.579.2 .593 1961 Unknown [id number] 2.16.840.1.676645.3.579.2 .593 1961 Unknown [id number] 2.16.840.1.490384.3.579.2 .1258 1961 Unknown [id number] 2.16.840.1.471767.3.579.2 .1258 1961 Unknown [id number] 2.16.840.1.125241.3.579.2 .1258 1961 Unknown [id number] 2.16.840.1.014984.3.579.2 .1258 1961 Unknown [id number] 2.16.840.1.399896.3.579.2 .1258 1961 Unknown [id number] 2.16.840.1.251508.3.579.2 .1258 1961 Unknown [id number] 2.16.840.1.839808.3.579.2 .1258 1961 Unknown [id number] 2.16.840.1.588481.3.579.2 .1258 1961 Unknown [id number] 2.16.840.1.246700.3.579.2 .1258 1961 Unknown [id number] 2.16.840.1.359516.3.579.2 .1258 1961 Unknown [id number] 2.16.840.1.694808.3.579.2 .1258 1961 Unknown [id number] 2.16.840.1.917306.3.579.2 .1258 1961 Unknown [id number] 2.16.840.1.734080.3.579.2 .1258 1961 Unknown [id number] 2.16.840.1.206774.3.579.2 .1258 1961 Unknown [id number] 2.16.840.1.198688.3.579.2 .1259 1961 Unknown [id number] 2.16.840.1.394976.3.579.2 .9 1961 Unknown [id number] 2.16.840.1.690353.3.579.2 .9 1961 Unknown [id number] 2.16.840.1.237309.3.579.2 .9 1961 Unknown [id number] 2.16.840.1.462070.3.579.2 .9 1961 Unknown [id number] 2.16.840.1.061501.3.579.2 .9 1961 Unknown [id number] 2.16.840.1.403131.3.579.2 .196 1961 Unknown [id number] 2.16.840.1.917353.3.579.2 .1961 Unknown [id number] 2.16.840.1.574138.3.579.2 .196 1961 Unknown [id number] 2.16.840.1.426804.3.579.2 .196 1959 Medicare [id number] 1959 Unknown [id number] Private Health Insurance [facility] [id number] Unknown [id number] 2.16.840.1.835529.3.579.2 .531 Unknown [id number] 2.16.840.1.654972.3.579.2 .531 Social History Date Type Detail Facility Start: 11-18-2022 End: 10-14-2023 Tobacco smoking status NHIS Ex-smoker (finding) [facility] Start: 1960 Sex Assigned At Female [facility] Start: 03-25-2023 End: 08-16-2023 Sex Assigned At [facility] Start: 04-06-1976 End: 04-06-2016 History of tobacco [...] Facility 11-20-2022 Functional status Patient at Baseline [facility] Work Phone: Mental Status Date Assessment Result Facility 11-20-2022 Cognitive function Cognitive Sta tus Patient is Progressing Toward Baseline [facility] Work Phone: Clinical Notes 10-03-2021 to 05-12-2024 VALERIE LU - 05/12/2024 10:00 AM ESTLisa Aichholz, BRIANA - 05/12/2024 10:00 AM ESTLisa Aichholz, BANQUET CAPTAIN - 05/12/2024 6:42 AM ESTLisa Aichholz, BRIANA [...] includes CVA. There is no history of CAD/MN, heart failure or PVD. GERD She reports [...] biotin 5 MG tablet Pt taking OTC ([employer]) Calcium Citrate-Vitamin D (CITRACAL + D PO) Pt taking OTC (bepretty) carvedilol (COREG) 12.5 mg, Oral, 2 times [...] Daily Magnesium 400 MG capsule Pt taking OTC(AWAK) Melatonin 12 MG tablet 1 tablet, Nightly Multiple Vitamins-Minerals (BARIATRIC MULTIVITAMINS/IRON PO) Pt taking OTC ([employer]) nystatin (Mycostatin) 761340 UNIT/GM powder 1 application , 2 times [...] with severe depression ([facility]) 05/18/2023 Brain lesion Brain vascular malformation Chronic pain disorder Closed fracture of patella 02/04/2018 Colon polyps Constipation Degenerative cervical disc Degenerative lumbar disc Depression ([facility]) 05/18/2023 Diastolic dysfunction Dizziness 05/18/2023 Dysphagia Fibromyalgia Fibromyalgia Gastrocnemius equinus GERD (gastroesophageal reflux disease) Heart murmur Hematoma of right breast Hemiparesis ([facility]) Hemiparesis, right ([facility]) Hemorrhoid int/external hemorrhoids Hiatal hernia Iron deficiency Left foot pain 03/25/2023 Lower extremity edema Mood disorder ([facility]) mixed mood disorder OSMANY (obstructive sleep apnea) Osteoporosis ([facility]) Overactive bladder Pre-diabetes Primary hypertension ([facility]) 03/25/2023 PTSD (post-traumatic stress disorder) ([facility]) Restless leg Right knee pain Right sided weakness S/P bariatric surgery Shingles Slurred speech Stroke ([facility]) 2018 Tenosynovitis, de Quervain Thoracic [...] that manages your OSMANY: Daniela Hemiparesis, right ([facility]) Stable with this from prior [...] spironolactone (Aldactone) 50 MG tablet Primary hypertension ([facility]/HCC) - Primary Please check blood pressure daily and record DASH diet Limit caffeine Take medication as directed Contact office if chest pain, pressure, dizziness, shortness of breath, swelling legs Recommend slow position changes Current meds: amlodipine, losartan Chronic kidney disease, stage 3a (HCC) (CMS/[facility]) Monitor labs at minimum every year Body mass index (BMI) 45.0-49.9, adult ([facility]) Other Visit Diagnoses Essential (primary) hypertension ([facility]/HCC) Relevant Medications amLODIPine (Norvasc) 10 MG tablet [...] to excess calories ([facility]) Discussed with patient their BMI (actual, verses recommended). We have also discussed lifestyle modifications: attempts to perform physical activity as chronic conditions allow, also to monitor dietary intake: increasing protein/fruits/veggies and lowering carb intake (unless contraindicated). Limit sodas, juices, and sugary drinks. Has had bariatric surgeries in the past Associated Problem(s): Chronic kidney disease, stage 3a (HCC) ([facility]) Monitor labs at minimum every year Associated Problem(s): GERD (gastroesophageal reflux disease) Recommendations: freq small meals, nothing to eat or drink at least 2 hours prior to bed, limit caffeine, alcohol, as well as spicy foods Meds to limit or avoid if possible: NSAIDS Elevate HOB if possible Current meds: omeprazole Associated Problem(s): Primary hypertension ([facility]) Please check blood pressure daily [...] from prior stroke documented in this encounter [facility] 05-12-2024 Instructions Adelaida Carrion NP - 05/12/2024 10:00 AM EST No changes in meds documented in this encounter [facility] 04-12-2024 Telephone encounter Note 03/10/2024 Continue Gabapentin 300 mg BID for RLS. Continue clonazepam 0.5mg PO BID for RLS. This was decreased during recent hospitalization Continue Vimpat 50mg PO BID for seizure prevention [facility] 04-12-2024 Miscellaneous Notes 03/10/2024 Continue Gabapentin 300 mg BID for RLS. Continue clonazepam 0.5mg PO BID for RLS. This was decreased during recent hospitalization Continue Vimpat 50mg PO BID for seizure prevention documented in this encounter [facility] 04-07-2024 History of Present illness [...] performance and score on it. Admitted to [facility] from the [facility] on 08/24/2023 with acute respiratory failure and confusion thought to be secondary to metabolic encephalopathy. LTME in August 2023 negative. Recently evaluated at [facility] on 03/02/2024 for severe encephalopathy. Brain MRI [...] any history of alcohol/substance abuse. Reformed smoker. [place]. Reported relocating from [place] to [place] in 2011. Completed a bachelor's degree. 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 Currently on disability. Resides with of 26 years along with her son, grandson, and 2 dogs. Has 2 children from a prior relationship. MEDICAL HISTORY/MEDICATION: MEDICATIONS: Current Outpatient Medications Medication Instructions amLODIPine (NORVASC) 10 mg, Oral, Daily biotin 5 MG tablet Pt taking OTC ([employer]) Calcium Citrate-Vitamin D (CITRACAL + D PO) Pt taking OTC (bepretty) carvedilol (COREG) 12.5 mg, Oral, 2 times [...] Daily Magnesium 400 MG capsule Pt taking OTCSagge) Melatonin 12 MG tablet 1 tablet, Oral, Nightly Multiple Vitamins-Minerals (BARIATRIC MULTIVITAMINS/IRON PO) Pt taking OTC ([employer]) nystatin (Mycostatin) 783232 UNIT/GM powder 1 application , 2 times [...] design >16th %ile. Motor/Speed of Processing: Right-handed. 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 Recognition discriminability 93rd [...] Please contact me with any questions at [phone]. documented in this encounter [facility] 03-16-2024 History of Present illness Narrative Associated Problem(s): Right bundle branch block (RBBB) determined by electrocardiography At this point I will look at her past EKG's, She has had ECHO in past No symptoms, at this time I do not think that further testing is needed Pt is having a memory test done on apr 07 in [place] Pt is anxious and afraid-pt father had dementia Spironolactone pt is asking for 50mg instead of 25mg Images from the original note were not included. Michelle Be is a 63 y.o. female presents with chief complaint of Anxiety HPI: Here for hospital follow up: AMS She was evaluated at [facility], was seen by Neurology reviewed notes from [...] biotin 5 MG tablet Pt taking OTC ([employer]) Calcium Citrate-Vitamin D (CITRACAL + D PO) Pt taking OTC ([facility]) carvedilol (COREG) 12.5 mg, Oral, 2 times [...] Daily Magnesium 400 MG capsule Pt taking OTSagge) Melatonin 12 MG tablet 1 tablet, Oral, Nightly Multiple Vitamins-Minerals (BARIATRIC MULTIVITAMINS/IRON PO) Pt taking OTC ([employer]) nystatin (Mycostatin) 861275 UNIT/GM powder 1 application , 2 times [...] with severe depression ([facility]) 05/18/2023 Brain lesion Brain vascular malformation Chronic pain disorder Closed fracture of patella 02/04/2018 Colon polyps Constipation Degenerative cervical disc Degenerative lumbar disc Depression ([facility]/HCC) 05/18/2023 Diastolic dysfunction Dizziness 05/18/2023 Dysphagia Fibromyalgia Fibromyalgia Gastrocnemius equinus GERD (gastroesophageal reflux disease) Heart murmur Hematoma of right breast Hemiparesis (CMS/[facility]) Hemiparesis, right (CMS/[facility]) Hemorrhoid int/external hemorrhoids Hiatal hernia Iron deficiency Left foot pain 03/25/2023 Lower extremity edema Mood disorder (CMS/[facility]) mixed mood disorder OSMANY (obstructive sleep apnea) Osteoporosis (CMS/[facility]) Overactive bladder Pre-diabetes Primary hypertension ([facility]) 03/25/2023 PTSD (post-traumatic stress disorder) (CMS/[facility]) Restless leg Right knee pain Right sided weakness S/P bariatric surgery Shingles Slurred speech Stroke ([facility]) 2018 Tenosynovitis, de Quervain Thoracic [...] to have evaluation documented in this encounter [facility] 03-16-2024 Instructions Adelaida Carrion NP - 03/16/2024 10:00 AM EST Spironolactone: I discontinued the 25mg script for this, sent a new script to [facility], for a 50mg pill, you will take 1 pill daily Memory testing in Apr 2024 Follow up with me in early May, sooner if needed documented in this encounter [facility] 03-16-2024 Telephone encounter Note Yep, sent to [employer]. [facility] 03-16-2024 Miscellaneous Notes Yep, sent to [employer]. Patient calls and states that hospital lowered her requip to 2 mg at bed time. Okay to send as new dosage? documented in this encounter [facility] 03-15-2024 Telephone encounter Note Patient calls and states that hospital lowered her requip to 2 mg at bed time. Okay to send as new dosage? [facility] 03-14-2024 History of Present illness [...] performance and score on it. Admitted to [facility] from the [facility] on 08/24/2023 with acute respiratory failure and confusion thought to be secondary to metabolic encephalopathy. Previous LTME in August 2023 negative. Recently evaluated at [facility] on 03/02/2024 for severe encephalopathy. Brain MRI [...] any history of alcohol/substance abuse. Reformed smoker. [place]. Reported relocating from [place] to [place] in 2011. Completed a bachelors degree. Previously [...] sleep apnea) Osteoporosis ([facility]) Overactive bladder Pre-diabetes Primary hypertension ([facility]) 03/25/2023 PTSD (post-traumatic stress disorder) ([facility] [address]/[facility]) Restless leg Right knee pain Right sided weakness S/P bariatric surgery Shingles Slurred speech Stroke ([facility] [address]) 2018 Tenosynovitis, de Quervain Thoracic back pain, unspecified back pain laterality, unspecified chronicity Tobacco dependence Vertigo, benign paroxysmal Yeast infection of the skin 05/18/2023 MEDICATIONS: Current Outpatient Medications Medication Instructions amLODIPine (NORVASC) 10 mg, Oral, Daily biotin 5 MG tablet Pt taking OTC ([employer]) Calcium Citrate-Vitamin D (CITRACAL + D PO) Pt taking OTC (bepretty) carvedilol (COREG) 12.5 mg, Oral, 2 times [...] Daily Magnesium 400 MG capsule Pt taking OTC(AWAK) Melatonin 12 MG tablet 1 tablet, Oral, Nightly Multiple Vitamins-Minerals (BARIATRIC MULTIVITAMINS/IRON PO) Pt taking OTC ([employer]) nystatin (Mycostatin) 976179 UNIT/GM powder 1 application , Topical, 2 [...] Please contact me with any questions at [phone]. documented in this encounter [facility] 02-16-2024 History of Present illness [...] biotin 5 MG tablet Pt taking OTC ([employer]) Calcium Citrate-Vitamin D (CITRACAL + D PO) Pt taking OTC (bepretty) carvedilol (COREG) 12.5 mg, Oral, 2 times [...] Daily Magnesium 400 MG capsule Pt taking OTC(AWAK) Melatonin 12 MG tablet 1 tablet, Oral, Nightly Multiple Vitamins-Minerals (BARIATRIC MULTIVITAMINS/IRON PO) Pt taking OTC ([employer]) nystatin (Mycostatin) 686441 UNIT/GM powder 1 application , Topical, 2 [...] with severe depression ([facility] [address]) 05/18/2023 Brain lesion Brain vascular malformation Chronic pain disorder Closed fracture of patella 02/04/2018 Colon polyps Constipation Degenerative cervical disc Degenerative lumbar disc Depression ([facility] [address]) 05/18/2023 Diastolic dysfunction Dizziness 05/18/2023 Dysphagia Fibromyalgia Fibromyalgia Gastrocnemius equinus GERD (gastroesophageal reflux disease) Heart murmur Hematoma of right breast Hemiparesis ([facility] [address]) Hemiparesis, right ([facility] [address]) Hemorrhoid int/external hemorrhoids Hiatal hernia Iron deficiency Left foot pain 03/25/2023 Lower extremity edema Mood disorder ([facility] [address]) mixed mood disorder OSMANY (obstructive sleep apnea) Osteoporosis ([facility] [address]) Overactive bladder Pre-diabetes Primary hypertension ([facility] [address]) 03/25/2023 PTSD (post-traumatic stress disorder) ([facility] [address]) Restless leg Right knee pain Right sided weakness S/P bariatric surgery Shingles Slurred speech Stroke ([facility] [address]) 2018 Tenosynovitis, de Quervain Thoracic [...] nursing note reviewed. Exam conducted with a overnight associate present. Constitutional: General: She is not in [...] chronic conditions allow documented in this encounter [facility] 01-28-2024 History of Present illness [...] for UTI and dehydration. See [facility] for HPI Was sent home on Bactrim. Feels completely fine now, no fever, chills, malodorous urine, no constipation diarrhea or abd pain SUBJECTIVE: MEDICATIONS: Current Outpatient Medications Medication Instructions amLODIPine (NORVASC) 10 mg, Oral, Daily biotin 5 MG tablet Pt taking OTC ([employer]) Calcium Citrate-Vitamin D (CITRACAL + D PO) Pt taking OTC (bepretty) carvedilol (COREG) 12.5 mg, Oral, 2 times [...] Daily Magnesium 400 MG capsule Pt taking OTC(AWAK) Melatonin 12 MG tablet 1 tablet, Oral, Nightly Multiple Vitamins-Minerals (BARIATRIC MULTIVITAMINS/IRON PO) Pt taking OTC ([employer]) nystatin (Mycostatin) 493979 UNIT/GM powder 1 application , Topical, 2 [...] with severe depression ([facility] [address]/[facility]) 05/18/2023 Brain lesion Brain vascular malformation Chronic pain disorder Closed fracture of patella 02/04/2018 Colon polyps Constipation Degenerative cervical disc Degenerative lumbar disc Depression (CMS/HCC) 05/18/2023 Diastolic dysfunction Dizziness 05/18/2023 Dysphagia Fibromyalgia Fibromyalgia Gastrocnemius equinus GERD (gastroesophageal reflux disease) Heart murmur Hematoma of right breast Hemiparesis ([facility] [address]) Hemiparesis, right ([facility] [address]) Hemorrhoid int/external hemorrhoids Hiatal hernia Iron deficiency Left foot pain 03/25/2023 Lower extremity edema Mood disorder ([facility] [address]) mixed mood disorder OSMANY (obstructive sleep apnea) Osteoporosis ([facility] [address]) Overactive bladder Pre-diabetes Primary hypertension ([facility] [address]) 03/25/2023 PTSD (post-traumatic stress disorder) ([facility] [address]) Restless leg Right knee pain Right sided weakness S/P bariatric surgery Shingles Slurred speech Stroke ([facility] [address]) 2018 Tenosynovitis, de Quervain Thoracic [...] of the risks of continued smoking: stroke, MN, all forms of cancer, lung disease, and [...] Relevant Orders Flu vaccine, MDCK, quadrivalent, PF (NCD224) (Flucelvax single dose syringe) Associated Problem(s): Tobacco dependence The patient has been advised of the risks of continued smoking: stroke, MN, all forms of cancer, lung disease, and . Options for quitting smoking include: cold turkey, hypnosis, acupuncture, nicotine replacement meds (gum, lozenges, and patches), Buproprion, and Varenicline. At this time pt is encouraged to evaluate their goals for wanting to quit smoking, and reach out to provider when ready to start this process documented in this encounter [facility] 01-04-2024 History of Present illness [...] compliance problems. There is no history of CAD/MN, heart failure or PVD. Identifiable causes of hypertension include sleep apnea. SUBJECTIVE: MEDICATIONS: Current Outpatient Medications Medication Instructions amLODIPine (NORVASC) 10 mg, Oral, Daily biotin 5 MG tablet Pt taking OTC ([employer]) Calcium Citrate-Vitamin D (CITRACAL + D PO) Pt taking OTC (bepretty) carvedilol (COREG) 12.5 mg, Oral, 2 times [...] Daily Magnesium 400 MG capsule Pt taking OTC(AWAK) Melatonin 12 MG tablet 1 tablet, Oral, Nightly Multiple Vitamins-Minerals (BARIATRIC MULTIVITAMINS/IRON PO) Pt taking OTC ([employer]) nystatin (Mycostatin) 575906 UNIT/GM powder 1 application , Topical, 2 [...] with severe depression ([facility] [address]) 05/18/2023 Brain lesion Brain vascular malformation Chronic pain disorder Closed fracture of patella 02/04/2018 Colon polyps Constipation Degenerative cervical disc Degenerative lumbar disc Depression ([facility] [address]) 05/18/2023 Diastolic dysfunction Dizziness 05/18/2023 Dysphagia Fibromyalgia Fibromyalgia Gastrocnemius equinus GERD (gastroesophageal reflux disease) Heart murmur Hematoma of right breast Hemiparesis ([facility] [address]) Hemiparesis, right ([facility] [address]) Hemorrhoid int/external hemorrhoids Hiatal hernia Iron deficiency Left foot pain 03/25/2023 Lower extremity edema Mood disorder ([facility] [address]) mixed mood disorder OSMANY (obstructive sleep apnea) Osteoporosis ([facility] [address]) Overactive bladder Pre-diabetes Primary hypertension ([facility] [address]) 03/25/2023 PTSD (post-traumatic stress disorder) ([facility] [address]) Restless leg Right knee pain Right sided weakness S/P bariatric surgery Shingles Slurred speech Stroke ([facility] [address]) 2018 Tenosynovitis, de Quervain Thoracic [...] MCG/ACT nasal spray documented in this encounter [facility] 12-09-2023 History of Present illness [...] machine. She is normally seen at the [facility] and was last seen on [...] of right breast Hemiparesis (CMS/HCC) Hemiparesis, right ([facility] [address]) Hemorrhoid int/external hemorrhoids Hiatal hernia Iron deficiency Left foot pain 03/25/2023 Lower extremity edema Mood disorder ([facility] [address]) mixed mood disorder OSMANY (obstructive sleep apnea) Osteoporosis ([facility] [address]) Overactive bladder Pre-diabetes Primary hypertension ([facility] [address]) 03/25/2023 PTSD (post-traumatic stress disorder) ([facility] [address]) Restless leg Right knee pain Right sided weakness S/P bariatric surgery Shingles Slurred speech Stroke ([facility] [address]) 2018 Tenosynovitis, de Quervain Thoracic [...] melatonin. She was last seen in the [facility] on June 24, 2023. 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 She is compliant on her download [...] was counseled on the risks of stroke, MN, and sudden with OSMANY, along with the [...] clinic: one year documented in this encounter [facility] 12-08-2023 History of Present illness [...] lumbar disc Depression ([facility] [address]) 05/18/2023 Diastolic dysfunction Dizziness 05/18/2023 Dysphagia Fibromyalgia Fibromyalgia Gastrocnemius equinus GERD (gastroesophageal reflux disease) Heart murmur Hematoma of right breast Hemiparesis ([facility] [address]) Hemiparesis, right ([facility] [address]) Hemorrhoid int/external hemorrhoids Hiatal hernia Iron deficiency Left foot pain 03/25/2023 Lower extremity edema Mood disorder ([facility] [address]) mixed mood disorder OSMANY (obstructive sleep apnea) Osteoporosis ([facility] [address]) Overactive bladder Pre-diabetes Primary hypertension ([facility] [address]) 03/25/2023 PTSD (post-traumatic stress disorder) ([facility] [address]) Restless leg Right knee pain Right sided weakness S/P bariatric surgery Shingles Slurred speech Stroke ([facility] [address]) 2018 Tenosynovitis, de Quervain Thoracic [...] Review Audit Reviewed by Festus Baron MA (Web Worker) on 12/08/23 at 1525 Medication Order Taking? Sig Documenting Provider Last Dose Status amLODIPine (Norvasc) 10 MG tablet [id number] Take 1 tablet (10 mg) by mouth Daily Adelaida Carrion NP Active biotin 5 MG tablet [id number] Pt taking OTC ([employer]) Historical Provider, Active Calcium Citrate-Vitamin D (CITRACAL + D PO) [id number] Pt taking OTC (bepretty) Historical ProviderMD Active Cariprazine HCl (Vraylar) 4.5 MG capsule [id number] Take 4.5 mg by mouth Daily Active carvedilol (Coreg) 12.5 MG tablet [id number] Take 1 tablet (12.5 mg) by mouth in the morning and 1 tablet (12.5 mg) in the evening. Take with meals. Adelaida Carrion NP Active cetirizine (ZyrTEC) 10 MG tablet [id number] Take 1 tablet (10 mg) by mouth Daily Adelaida Carrion NP Active clonazePAM (KlonoPIN) 1 MG tablet [id number] Take 1 tablet (1 mg) by mouth 2 (two) times a day as needed for anxiety Do not start before October 16, 2023. Sonam Brown NP 11/15/23 235 DULoxetine (Cymbalta) [address] capsule [id number] Take 60 mg by mouth in the morning and 60 mg before bedtime. Do not crush or chew.. Active fluconazole (Diflucan) 150 MG tablet [id number] 1 pill every 3 days for a total of 3 doses Adelaida Carrion NP Active fluticasone (Flonase) 50 MCG/ACT nasal spray [id number] Administer 2 sprays into each nostril Daily Adelaida Carrion NP 11/04/23 235 gabapentin (Neurontin) 300 MG capsule [id number] Take 1 capsule (300 mg) by mouth in the morning and 1 capsule (300 mg) before bedtime. Sonam Brown NP Active losartan (Cozaar) 100 MG tablet [id number] Take 1 tablet (100 mg) by mouth Daily Adelaida Carrion NP Active Magnesium 400 MG capsule [id number] Pt taking OTC(AWAK) Historical ProviderMD Active Melatonin 12 MG tablet [id number] Take 1 tablet by mouth at bedtime Active Multiple Vitamins-Minerals (BARIATRIC MULTIVITAMINS/IRON PO) [id number] Pt taking OTC ([employer]) Historical ProviderMD Active nystatin (Mycostatin) 042401 UNIT/GM powder [id number] Apply 1 application topically in the morning and 1 application before bedtime. Adelaida Carrion NP Active omeprazole (PriLOSEC) [address] capsule [id number] Take 1 capsule (20 mg) by mouth in the morning. Take before meals. Adelaida Carrion NP Active rOPINIRole (Requip) 4 MG tablet [id number] Take 1 tablet (4 mg) by mouth at bedtime Sonamolvin Brown NP Active spironolactone (Aldactone) 25 MG tablet [id number] Take 2 tablets (50 mg) by mouth Daily Adelaida Carrion NP Active tiZANidine (Zanaflex) 2 MG tablet [id number] Take 2 mg by mouth every 8 (eight) hours Adelaida Carrion NP Active traZODone (Desyrel) 150 MG tablet [id number] Take 150 mg by mouth at bedtime Active HPI AMS -Patient was admitted to [facility] from the [facility] on 08/24/2023 with acute respiratory failure and confusion thought to be secondary to metabolic encephalopathy. Patient denies any new hospital stays. -She was seen by Neurology who thought she had a toxic encephalopathy secondary to medication overuse. -She was monitored on LTME which did not show any evidence of seizures. -After she was discharged she had a short stay at the [facility] on 09[facility]/2023 and she was discharged [...] ankle and great toe bilaterally. Coordination Right: Eokbbq-cz-lzjg normal. Rapid alternating movement normal.Left: Wzerea-ad-vwlz normal. Rapid alternating movement normal. Gait Casual gait is normal including stance, stride, and arm swing. Motor Examination RUE Strength deltoid, biceps, triceps, wrist extensors, wrist extensors, wrist flexor, supply crib attendant strength 5/5. LUE Strength deltoid, biceps, triceps, wrist extensors, wrist extensors, wrist flexor, supply crib attendant strength 5/5. RLE Strength illopsoas, quadriceps, tibialis [...] not all inclusive. Patient was admitted to [facility] from the [facility] on 08/24/2023 with acute respiratory failure and [...] of the brain in July 2019 showed owbu-sg-wcnepvcz white matter changes with the largest area [...] make further recommendations documented in this encounter [facility] 05-18-2023 History of Present illness [...] (BARIATRIC MULTIVITAMINS/IRON PO) Bariatric Multivitamins/Iron nystatin (Mycostatin) 365781 UNIT/GM powder 1 application , Topical, 2 [...] with severe depression ([facility] [address]) 05/18/2023 Brain vascular malformation Chronic pain disorder Colon polyps Constipation Degenerative cervical disc Degenerative lumbar disc Depression ([facility] [address]) 05/18/2023 Diastolic dysfunction Dizziness 05/18/2023 Dysphagia Fibromyalgia Gastrocnemius equinus GERD (gastroesophageal reflux disease) Heart murmur Hematoma of right breast Hemiparesis, right ([facility] [address]) Hemorrhoid int/external hemorrhoids Hiatal hernia Iron deficiency Left foot pain 03/25/2023 Lower extremity edema Mood disorder ([facility] [address]) mixed mood disorder OSMANY (obstructive sleep apnea) Osteoporosis ([facility] [address]) Overactive bladder Pre-diabetes Primary hypertension ([facility] [address]) 03/25/2023 PTSD (post-traumatic stress disorder) ([facility] [address]) Restless leg Right knee pain Right sided weakness S/P bariatric surgery Shingles Slurred speech Stroke ([facility] [address]) 2018 Tenosynovitis, de Quervain Thoracic [...] yearly and prn documented in this encounter [facility] 03-23-2023 Procedure note [facility] 12-19-2022 Evaluation note Encounter Date Diagnosis Assessment Notes Dec, Skin candidiasis (ICD-10 - B37.2) Drink plenty fluids, get plenty of rest. Continue home medications as prescribed. Take the Diflucan as prescribed until gone. Follow-up with your family physician if no improvement in 2 to 3 days [employer] Other 08-17-2023 Discharge summary Author Eduardo bautista [facility] November 20, 2022 6:38am Note Date/Time November 20, 2022 6: 38am [facility] [address] [place] [address] Discharge Summary Signed Patient: Michelle Be MR#: [id number] : 1960 Acct:[id number] Age/Sex: 61 / F Adm Date: 3 Loc: 1S Room: [address] [place] [address]: Gaudencio Monk MD Copies to: [...] at that time.? She reports moving to [place] from [place] in 2011 and was then diagnosed with bipolar disorder at [facility] in [place], where she still follows with a therapist.? Shereports that she has been with 7 therapists in the last 9 years and is currentlycompleting EMDR with her current therapist. Past hospitalizations: Her most recent hospitalization was 5 years ago [place] in [place] for the same feeling she is experiencing [...] worked since 2010 due to her fibromyalgia.? [facility]. 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 (insert date/time [...] signed by Eduardo Monk MD> 11/20/22 0638 [facility] Work Phone: 1(475) 135-708708-16-2023 Progress note Author Eduardo bautista [facility] November 19, 2022 6:25am Note Date/Time November 19, 2022 6: 25am [facility] [address] [place] [address] Psychiatry Progress Note Signed Patient: Michelle Be MR#: [id number] : 1960 Acct:[id number] Age/Sex: 61 / F Adm Date: 3 Loc: Room: [address] [place] [address] Type : ADM IN Attending Dr: Gaudencio [...] signed by Eduardo Monk MD> 11/19/22 0625 [facility] Work Phone: 1(510) 578-300508-15-2023 Progress note Author Eduardo bautista [facility] November 18, 2022 11:01am Note Date/Time November 18, 2022 10 :11am [facility] [address] [place] [address] Psychiatry Progress Note Signed Patient: Michelle Be MR#: [id number] : 1960 Acct:[id number] Age/Sex: 61 / F Adm Date: 3 Loc: Room: [address] [place] [address] Type : ADM IN Attending Dr: Gaudencio [...] by requesting a schedule 2 referring to [facility] for pain management specifically every 4-6 hours [...] signed by MD DA Rangel> 11/18/22 1011 [facility] Work Phone: 1(159) 231-746908-14-2023 History and physical note Author Eduardo bautista [facility] November 17, 2022 12:48pm Note Date/Time November 17, 2022 12 :48pm [facility] [address] [place] [address] Psychiatry H&P Signed Patient: Michelle Be MR#: [id number] : 1960 Acct:[id number] Age/Sex: 61 / F Adm Date: 3 Loc: Room: [address] [place] [address] Type: ADM IN Attending Dr: Gaudencio Monk MD Copies to: MD Adelaida Álvarez, BANQUET CAPTAIN-C~ Date of Service: 11/17/2022 HPI History of [...] at that time. She reports moving to [place] from [place] in 2011 and was then diagnosed with bipolar disorder at [facility] in [place], where she still follows with a therapist. Shereports that she has been with 7 therapists in the last 9 years and is currentlycompleting EMDR with her current therapist. Past hospitalizations: Her most recent hospitalization was 5 years ago [facility] for the same feeling she is [...] worked since 2010 due to her fibromyalgia. [facility]. Relationships: Reports [...] equal bilaterally. CN XII: Tongue protrusion midline [facility] Medical History (Updated 11/17/22 @ 10:42 by [...] signed by Eduardo Monk MD> 11/17/22 1248 [facility] Work Phone: 1(234) 240-318003-23-2023 NoteCONSULTATION CONSULTATION DATE: 06/26/2022 To: Nurse Carrion [...] L5-S1 facet joint injection under fluoroscopic guidance.[id number] NotePROCEDURE: XR SHOULDER RT 2V or > [...] Electronically authenticated by: KINGSLEY CLEMENTS Date: 2022-05-09 09:21[facility]01-23-2023 NotePROCEDURE: XR WRIST LT MIN 3 [...] Electronically authenticated by: KINGSLEY CLEMENTS Date: 2022-04-28 13:31[facility]12-29-2022 NoteCONSULTATION CONSULTATION DATE: 04/03/2022 HISTORY OF [...] three months, unless otherwise indicated.[facility] [id number] NoteCONSULTATION CONSULTATION DATE: 01/02/2022 This is a [...] [facility] in [place] for the compounded cream. She needs a [...] months' time unless otherwise indicated.[facility] [id number] NotePROCEDURE: XR ANKLE RT MIN 3 VIEWS, [...] by: KINGSLEY CLEMENTS Date: 2022-01-01 13:11[facility]09-28-2022 NotePROCEDURE: XR ANKLE RT MIN 3 [...] by: KINGSLEY CLEMENTS Date: 2022-01-01 13:11[facility]08-18-2022 NotePROCEDURE: XR FOOT RT MIN 3 VIEWS HISTORY: Pain in right foot , chronic COMPARISON: XR foot right 2020 FINDINGS: BONES:No fracture, dislocation, bone lesion. Small calcaneal degenerative enthesophytes. SOFT TISSUES:No visible soft tissue swelling. EFFUSION:None visible. OTHER: Negative. IMPRESSION: 1. No acute bone abnormality or significant degenerative joint disease. Electronically authenticated by: KINGSLEY CLEMENTS Date: 2021-11-21 16:13[facility]06-30-2022 NoteCONSULTATION CONSULTATION DATE: 10/03/2021 This is [...] patient agrees with the plan of care. [facility] Signed and Approved by: ZELDA MCDANIEL . 10/10/2021 10:22:00[facility] Diagnosis Onset Date Resolution Status Allergies acute Bipolar 2 disorder acute Hypertension acute Morbid obesity with BMI of 45.0-49.9, adult acute OSMANY (obstructive sleep apnea) acute Restless legs syndrome acute [facility] Work Phone: Evaluation noteNo InformationNort [employer] Other Evaluation noteNo assessment information available [facility] Work Phone: Evaluation note* Diagnosis [...] disorder Mood disorder ([facility]/HCC) Unspecified episodic mood disorder Primary hypertension ([facility]) Unspecified essential hypertension Left hip pain Pain in joint, pelvic region and thigh Open wound of anterior abdominal wall, initial encounter documented in this encounter [facility] HealthcareEvaluation note* Diagnosis Acute cystitis with hematuria- Primary documented in this encounter [facility] HealthcareEvaluation note* Diagnosis Left foot pain- Primary Pain in soft tissues of limb Primary hypertension ([facility]) Unspecified essential hypertension Class 3 severe obesity due to excess calories without serious comorbidity with body mass index (BMI) of 45.0 to 49.9 in adult ([facility]) Encounter for annual wellness visit (AWV) in Medicare patient- Primary OSMANY (obstructive sleep apnea) Obstructive sleep apnea (adult) (pediatric) Chronic pain disorder Chronic pain syndrome Gastroesophageal reflux disease, unspecified whether esophagitis present Overactive bladder Hypertonicity of bladder Lower extremity edema Edema Pre-diabetes Other abnormal glucose Morbid obesity ([facility]/HCC) Morbid obesity Yeast infection of the skin Candidiasis of skin and nails Tobacco dependence Tobacco use disorder Mood disorder ([facility]) Unspecified episodic mood disorder Primary hypertension ([facility]) Unspecified essential hypertension Left hip pain Pain in joint, pelvic region and thigh Open wound of anterior abdominal wall, initial encounter Primary hypertension ([facility])- Primary Unspecified essential hypertension Yeast infection of the skin Candidiasis of skin and nails Morbid obesity ([facility]) Morbid obesity Primary hypertension ([facility])- Primary Unspecified essential hypertension Encounter for screening mammogram for malignant neoplasm of breast Gastroesophageal reflux disease, unspecified whether esophagitis present Acute gout of right foot, unspecified cause Osteoporosis, unspecified osteoporosis type, unspecified pathological fracture presence ([facility]) Morbid obesity ([facility]) Morbid obesity Pre-diabetes Other abnormal glucose Anemia, unspecified type Vitamin deficiency Unspecified vitamin deficiency Post-viral cough syndrome Primary hypertension ([facility])- Primary Unspecified essential hypertension Allergic rhinitis, unspecified Acute cough Morbid obesity ([facility]) Morbid obesity Former cigarette smoker Personal history of tobacco use, presenting hazards to health Toxic metabolic encephalopathy- Primary Hemiparesis, right ([facility]) Unspecified hemiplegia affecting unspecified side Acute respiratory failure with hypoxia ([facility]) Heart murmur Undiagnosed cardiac murmurs Primary hypertension ([facility]) Unspecified essential hypertension Morbid obesity ([facility]) Morbid obesity Bipolar disorder with severe depression ([facility]) Slurred speech Other speech disturbance Bilateral lower extremity edema- Primary Primary hypertension ([facility]) Unspecified essential hypertension Lower extremity edema Edema Essential (primary) hypertension ([facility]) Unspecified essential hypertension Gastro-esophageal reflux disease without esophagitis Allergic rhinitis, unspecified Bilateral lower extremity edema- Primary Morbid (severe) obesity due to excess calories ([facility]) Body mass index (BMI) 45.0-49.9, adult ([facility]) Pre-diabetes Other abnormal glucose Bilateral lower extremity edema- Primary Essential (primary) hypertension ([facility]) Unspecified essential hypertension Allergic rhinitis, unspecified OSMANY (obstructive sleep apnea) Obstructive sleep apnea (adult) (pediatric) Primary hypertension ([facility]) Unspecified essential hypertension Morbid obesity ([facility]) Morbid obesity Acute cystitis without hematuria- Primary Tobacco dependence Tobacco use disorder Needs flu shot Need for prophylactic vaccination and inoculation against influenza Morbid obesity ([facility]) Morbid obesity documented in this encounter [facility] HealthcareEvaluation note* Diagnosis Left foot pain- Primary Pain in soft tissues of limb Primary hypertension ([facility]) Unspecified essential hypertension Class 3 severe obesity due to excess calories without serious comorbidity with body mass index (BMI) of 45.0 to 49.9 in adult ([facility]) Encounter for annual wellness visit (AWV) in Medicare patient- Primary OSMANY (obstructive sleep apnea) Obstructive sleep apnea (adult) (pediatric) Chronic pain disorder Chronic pain syndrome Gastroesophageal reflux disease, unspecified whether esophagitis present Overactive bladder Hypertonicity of bladder Lower extremity edema Edema Pre-diabetes Other abnormal glucose Morbid obesity ([facility]) Morbid obesity Yeast infection of the skin Candidiasis of skin and nails Tobacco dependence Tobacco use disorder Mood disorder ([facility]) Unspecified episodic mood disorder Primary hypertension ([facility]) Unspecified essential hypertension Left hip pain Pain in joint, pelvic region and thigh Open wound of anterior abdominal wall, initial encounter Primary hypertension ([facility])- Primary Unspecified essential hypertension Yeast infection of the skin Candidiasis of skin and nails Morbid obesity ([facility]) Morbid obesity Primary hypertension ([facility])- Primary Unspecified essential hypertension Encounter for screening mammogram for malignant neoplasm of breast Gastroesophageal reflux disease, unspecified whether esophagitis present Acute gout of right foot, unspecified cause Osteoporosis, unspecified osteoporosis type, unspecified pathological fracture presence ([facility]) Morbid obesity ([facility]) Morbid obesity Pre-diabetes Other abnormal glucose Anemia, unspecified type Vitamin deficiency Unspecified vitamin deficiency Post-viral cough syndrome Primary hypertension ([facility])- Primary Unspecified essential hypertension Allergic rhinitis, unspecified Acute cough Morbid obesity ([facility]) Morbid obesity Former cigarette smoker Personal history of tobacco use, presenting hazards to health Toxic metabolic encephalopathy- Primary Hemiparesis, right ([facility]) Unspecified hemiplegia affecting unspecified side Acute respiratory failure with hypoxia ([facility]) Heart murmur Undiagnosed cardiac murmurs Primary hypertension ([facility]) Unspecified essential hypertension Morbid obesity ([facility]) Morbid obesity Bipolar disorder with severe depression ([facility]) Slurred speech Other speech disturbance Bilateral lower extremity edema- Primary Primary hypertension ([facility]) Unspecified essential hypertension Lower extremity edema Edema Essential (primary) hypertension ([facility]) Unspecified essential hypertension Gastro-esophageal reflux disease without esophagitis Allergic rhinitis, unspecified Bilateral lower extremity edema- Primary Morbid (severe) obesity due to excess calories ([facility]) Body mass index (BMI) 45.0-49.9, adult ([facility]) Pre-diabetes Other abnormal glucose Bilateral lower extremity edema- Primary Essential (primary) hypertension ([facility]) Unspecified essential hypertension Allergic rhinitis, unspecified OSMANY (obstructive sleep apnea) Obstructive sleep apnea (adult) (pediatric) Primary hypertension ([facility]) Unspecified essential hypertension Morbid obesity ([facility]) Morbid obesity Acute cystitis without hematuria- Primary Tobacco dependence Tobacco use disorder Needs flu shot Need for prophylactic vaccination and inoculation against influenza Morbid obesity ([facility]) Morbid obesity Restless leg Restless legs syndrome (RLS) documented in this encounter [facility] HealthcareEvaluation note* Diagnosis Left foot pain- Primary Pain in soft tissues of limb Primary hypertension ([facility]) Unspecified essential hypertension Class 3 severe obesity due to excess calories without serious comorbidity with body mass index (BMI) of 45.0 to 49.9 in adult ([facility]) Encounter for annual wellness visit (AWV) in Medicare patient- Primary OSMANY (obstructive sleep apnea) Obstructive sleep apnea (adult) (pediatric) Chronic pain disorder Chronic pain syndrome Gastroesophageal reflux disease, unspecified whether esophagitis present Overactive bladder Hypertonicity of bladder Lower extremity edema Edema Pre-diabetes Other abnormal glucose Morbid obesity ([facility]) Morbid obesity Yeast infection of the skin Candidiasis of skin and nails Tobacco dependence Tobacco use disorder Mood disorder ([facility]) Unspecified episodic mood disorder Primary hypertension ([facility]) Unspecified essential hypertension Left hip pain Pain in joint, pelvic region and thigh Open wound of anterior abdominal wall, initial encounter Primary hypertension ([facility])- Primary Unspecified essential hypertension Yeast infection of the skin Candidiasis of skin and nails Morbid obesity ([facility]) Morbid obesity Primary hypertension ([facility])- Primary Unspecified essential hypertension Encounter for screening mammogram for malignant neoplasm of breast Gastroesophageal reflux disease, unspecified whether esophagitis present Acute gout of right foot, unspecified cause Osteoporosis, unspecified osteoporosis type, unspecified pathological fracture presence ([facility]) Morbid obesity ([facility]) Morbid obesity Pre-diabetes Other abnormal glucose Anemia, unspecified type Vitamin deficiency Unspecified vitamin deficiency Post-viral cough syndrome Primary hypertension ([facility])- Primary Unspecified essential hypertension Allergic rhinitis, unspecified Acute cough Morbid obesity ([facility]) Morbid obesity Former cigarette smoker Personal history of tobacco use, presenting hazards to health Toxic metabolic encephalopathy- Primary Hemiparesis, right ([facility]) Unspecified hemiplegia affecting unspecified side Acute respiratory failure with hypoxia ([facility]) Heart murmur Undiagnosed cardiac murmurs Primary hypertension ([facility]) Unspecified essential hypertension Morbid obesity ([facility]) Morbid obesity Bipolar disorder with severe depression ([facility]) Slurred speech Other speech disturbance Bilateral lower extremity edema- Primary Primary hypertension ([facility]) Unspecified essential hypertension Lower extremity edema Edema Essential (primary) hypertension ([facility]) Unspecified essential hypertension Gastro-esophageal reflux disease without esophagitis Allergic rhinitis, unspecified Bilateral lower extremity edema- Primary Morbid (severe) obesity due to excess calories ([facility]) Body mass index (BMI) 45.0-49.9, adult ([facility]) Pre-diabetes Other abnormal glucose Bilateral lower extremity edema- Primary Essential (primary) hypertension ([facility]) Unspecified essential hypertension Allergic rhinitis, unspecified OSMANY (obstructive sleep apnea) Obstructive sleep apnea (adult) (pediatric) Primary hypertension ([facility]) Unspecified essential hypertension Morbid obesity ([facility]) Morbid obesity Acute cystitis without hematuria- Primary Tobacco dependence Tobacco use disorder Needs flu shot Need for prophylactic vaccination and inoculation against influenza Morbid obesity ([facility]) Morbid obesity Well woman exam with routine gynecological exam- Primary Routine gynecological examination Morbid obesity ([facility]) Morbid obesity documented in this encounter [facility] HealthcareEvaluation note* Diagnosis Left foot pain- Primary Pain in soft tissues of limb Primary hypertension ([facility]) Unspecified essential hypertension Class 3 severe obesity due to excess calories without serious comorbidity with body mass index (BMI) of 45.0 to 49.9 in adult ([facility]) Encounter for annual wellness visit (AWV) in Medicare patient- Primary OSMANY (obstructive sleep apnea) Obstructive sleep apnea (adult) (pediatric) Chronic pain disorder Chronic pain syndrome Gastroesophageal reflux disease, unspecified whether esophagitis present Overactive bladder Hypertonicity of bladder Lower extremity edema Edema Pre-diabetes Other abnormal glucose Morbid obesity ([facility]) Morbid obesity Yeast infection of the skin Candidiasis of skin and nails Tobacco dependence Tobacco use disorder Mood disorder ([facility]) Unspecified episodic mood disorder Primary hypertension ([facility]) Unspecified essential hypertension Left hip pain Pain in joint, pelvic region and thigh Open wound of anterior abdominal wall, initial encounter Primary hypertension ([facility])- Primary Unspecified essential hypertension Yeast infection of the skin Candidiasis of skin and nails Morbid obesity (CMS/HCC) Morbid obesity Primary hypertension ([facility]/HCC)- Primary Unspecified essential hypertension Encounter for screening mammogram for malignant neoplasm of breast Gastroesophageal reflux disease, unspecified whether esophagitis present Acute gout of right foot, unspecified cause Osteoporosis, unspecified osteoporosis type, unspecified pathological fracture presence ([facility]) Morbid obesity ([facility]) Morbid obesity Pre-diabetes Other abnormal glucose Anemia, unspecified type Vitamin deficiency Unspecified vitamin deficiency Post-viral cough syndrome Primary hypertension ([facility])- Primary Unspecified essential hypertension Allergic rhinitis, unspecified Acute cough Morbid obesity ([facility]) Morbid obesity Former cigarette smoker Personal history of tobacco use, presenting hazards to health Toxic metabolic encephalopathy- Primary Hemiparesis, right ([facility]) Unspecified hemiplegia affecting unspecified side Acute respiratory failure with hypoxia ([facility]) Heart murmur Undiagnosed cardiac murmurs Primary hypertension ([facility]) Unspecified essential hypertension Morbid obesity ([facility]) Morbid obesity Bipolar disorder with severe depression ([facility]) Slurred speech Other speech disturbance Bilateral lower extremity edema- Primary Primary hypertension ([facility]) Unspecified essential hypertension Lower extremity edema Edema Essential (primary) hypertension ([facility]) Unspecified essential hypertension Gastro-esophageal reflux disease without esophagitis Allergic rhinitis, unspecified Bilateral lower extremity edema- Primary Morbid (severe) obesity due to excess calories ([facility]) Body mass index (BMI) 45.0-49.9, adult ([facility]) Pre-diabetes Other abnormal glucose Bilateral lower extremity edema- Primary Essential (primary) hypertension ([facility]) Unspecified essential hypertension Allergic rhinitis, unspecified OSMANY (obstructive sleep apnea) Obstructive sleep apnea (adult) (pediatric) Primary hypertension ([facility]) Unspecified essential hypertension Morbid obesity ([facility]) Morbid obesity Acute cystitis without hematuria- Primary Tobacco dependence Tobacco use disorder Needs flu shot Need for prophylactic vaccination and inoculation against influenza Morbid obesity ([facility]) Morbid obesity Well woman exam with routine gynecological exam- Primary Routine gynecological examination Morbid obesity ([facility] [facility] Morbid obesity Essential (primary) hypertension ([facility]) Unspecified essential hypertension Allergic rhinitis, unspecified documented in this encounter [facility]* Diagnosis Left foot pain- Primary Pain in soft tissues of limb Primary hypertension ([facility]) Unspecified essential hypertension Class 3 severe obesity due to excess calories without serious comorbidity with body mass index (BMI) of 45.0 to 49.9 in adult ([facility]) Encounter for annual wellness visit (AWV) in Medicare patient- Primary OSMANY (obstructive sleep apnea) Obstructive sleep apnea (adult) (pediatric) Chronic pain disorder Chronic pain syndrome Gastroesophageal reflux disease, unspecified whether esophagitis present Overactive bladder Hypertonicity of bladder Lower extremity edema Edema Pre-diabetes Other abnormal glucose Morbid obesity ([facility]) Morbid obesity Yeast infection of the skin Candidiasis of skin and nails Tobacco dependence Tobacco use disorder Mood disorder ([facility]) Unspecified episodic mood disorder Primary hypertension ([facility]) Unspecified essential hypertension Left hip pain Pain in joint, pelvic region and thigh Open wound of anterior abdominal wall, initial encounter Primary hypertension ([facility])- Primary Unspecified essential hypertension Yeast infection of the skin Candidiasis of skin and nails Morbid obesity ([facility]) Morbid obesity Primary hypertension ([facility])- Primary Unspecified essential hypertension Encounter for screening mammogram for malignant neoplasm of breast Gastroesophageal reflux disease, unspecified whether esophagitis present Acute gout of right foot, unspecified cause Osteoporosis, unspecified osteoporosis type, unspecified pathological fracture presence ([facility]) Morbid obesity ([facility]) Morbid obesity Pre-diabetes Other abnormal glucose Anemia, unspecified type Vitamin deficiency Unspecified vitamin deficiency Post-viral cough syndrome Primary hypertension ([facility])- Primary Unspecified essential hypertension Allergic rhinitis, unspecified Acute cough Morbid obesity ([facility]) Morbid obesity Former cigarette smoker Personal history of tobacco use, presenting hazards to health Toxic metabolic encephalopathy- Primary Hemiparesis, right ([facility]) Unspecified hemiplegia affecting unspecified side Acute respiratory failure with hypoxia ([facility]) Heart murmur Undiagnosed cardiac murmurs Primary hypertension ([facility]) Unspecified essential hypertension Morbid obesity ([facility]) Morbid obesity Bipolar disorder with severe depression ([facility]) Slurred speech Other speech disturbance Bilateral lower extremity edema- Primary Primary hypertension ([facility]) Unspecified essential hypertension Lower extremity edema Edema Essential (primary) hypertension ([facility]) Unspecified essential hypertension Gastro-esophageal reflux disease without esophagitis Allergic rhinitis, unspecified Bilateral lower extremity edema- Primary Morbid (severe) obesity due to excess calories ([facility]) Body mass index (BMI) 45.0-49.9, adult ([facility]) Pre-diabetes Other abnormal glucose Bilateral lower extremity edema- Primary Essential (primary) hypertension ([facility]/H[facility]) Unspecified essential hypertension Allergic rhinitis, unspecified OSMANY (obstructive sleep apnea) Obstructive sleep apnea (adult) (pediatric) Primary hypertension ([facility]) Unspecified essential hypertension Morbid obesity ([facility]) Morbid obesity Acute cystitis without hematuria- Primary Tobacco dependence Tobacco use disorder Needs flu shot Need for prophylactic vaccination and inoculation against influenza Morbid obesity (CMS/HCC) Morbid obesity Well woman exam with routine gynecological exam- Primary Routine gynecological examination Morbid obesity ([facility]) Morbid obesity Allergic rhinitis, unspecified documented in this encounter [facility] HealthcareEvaluation note* Diagnosis Left foot pain- Primary Pain in soft tissues of limb Primary hypertension ([facility]) Unspecified essential hypertension Class 3 severe obesity due to excess calories without serious comorbidity with body mass index (BMI) of 45.0 to 49.9 in adult ([facility]) Encounter for annual wellness visit (AWV) in Medicare patient- Primary OSMANY (obstructive sleep apnea) Obstructive sleep apnea (adult) (pediatric) Chronic pain disorder Chronic pain syndrome Gastroesophageal reflux disease, unspecified whether esophagitis present Overactive bladder Hypertonicity of bladder Lower extremity edema Edema Pre-diabetes Other abnormal glucose Morbid obesity ([facility]) Morbid obesity Yeast infection of the skin Candidiasis of skin and nails Tobacco dependence Tobacco use disorder Mood disorder ([facility]) Unspecified episodic mood disorder Primary hypertension ([facility]) Unspecified essential hypertension Left hip pain Pain in joint, pelvic region and thigh Open wound of anterior abdominal wall, initial encounter Primary hypertension ([facility])- Primary Unspecified essential hypertension Yeast infection of the skin Candidiasis of skin and nails Morbid obesity ([facility]) Morbid obesity Primary hypertension ([facility])- Primary Unspecified essential hypertension Encounter for screening mammogram for malignant neoplasm of breast Gastroesophageal reflux disease, unspecified whether esophagitis present Acute gout of right foot, unspecified cause Osteoporosis, unspecified osteoporosis type, unspecified pathological fracture presence ([facility]) Morbid obesity ([facility]) Morbid obesity Pre-diabetes Other abnormal glucose Anemia, unspecified type Vitamin deficiency Unspecified vitamin deficiency Post-viral cough syndrome Primary hypertension ([facility])- Primary Unspecified essential hypertension Allergic rhinitis, unspecified Acute cough Morbid obesity ([facility]) Morbid obesity Former cigarette smoker Personal history of tobacco use, presenting hazards to health Toxic metabolic encephalopathy- Primary Hemiparesis, right ([facility]) Unspecified hemiplegia affecting unspecified side Acute respiratory failure with hypoxia ([facility]) Heart murmur Undiagnosed cardiac murmurs Primary hypertension ([facility]) Unspecified essential hypertension Morbid obesity ([facility]) Morbid obesity Bipolar disorder with severe depression ([facility]) Slurred speech Other speech disturbance Bilateral lower extremity edema- Primary Primary hypertension ([facility]) Unspecified essential hypertension Lower extremity edema Edema Essential (primary) hypertension ([facility]) Unspecified essential hypertension Gastro-esophageal reflux disease without esophagitis Allergic rhinitis, unspecified Bilateral lower extremity edema- Primary Morbid (severe) obesity due to excess calories ([facility]) Body mass index (BMI) 45.0-49.9, adult ([facility]) Pre-diabetes Other abnormal glucose Bilateral lower extremity edema- Primary Essential (primary) hypertension ([facility]) Unspecified essential hypertension Allergic rhinitis, unspecified OSMANY (obstructive sleep apnea) Obstructive sleep apnea (adult) (pediatric) Primary hypertension ([facility]) Unspecified essential hypertension Morbid obesity ([facility]) Morbid obesity Acute cystitis without hematuria- Primary Tobacco dependence Tobacco use disorder Needs flu shot Need for prophylactic vaccination and inoculation against influenza Morbid obesity ([facility]) Morbid obesity Well woman exam with routine gynecological exam- Primary Routine gynecological examination Morbid obesity ([facility]) Morbid obesity Yeast infection of the skin Candidiasis of skin and nails documented in this encounter [facility]* Diagnosis Left foot pain- Primary Pain in soft tissues of limb Primary hypertension ([facility]) Unspecified essential hypertension Class 3 severe obesity due to excess calories without serious comorbidity with body mass index (BMI) of 45.0 to 49.9 in adult ([facility]) Encounter for annual wellness visit (AWV) in Medicare patient- Primary OSMANY (obstructive sleep apnea) Obstructive sleep apnea (adult) (pediatric) Chronic pain disorder Chronic pain syndrome Gastroesophageal reflux disease, unspecified whether esophagitis present Overactive bladder Hypertonicity of bladder Lower extremity edema Edema Pre-diabetes Other abnormal glucose Morbid obesity ([facility]) Morbid obesity Yeast infection of the skin Candidiasis of skin and nails Tobacco dependence Tobacco use disorder Mood disorder ([facility]) Unspecified episodic mood disorder Primary hypertension ([facility]) Unspecified essential hypertension Left hip pain Pain in joint, pelvic region and thigh Open wound of anterior abdominal wall, initial encounter Primary hypertension ([facility])- Primary Unspecified essential hypertension Yeast infection of the skin Candidiasis of skin and nails Morbid obesity ([facility]) Morbid obesity Primary hypertension ([facility]/HCC)- Primary Unspecified essential hypertension Encounter for screening mammogram for malignant neoplasm of breast Gastroesophageal reflux disease, unspecified whether esophagitis present Acute gout of right foot, unspecified cause Osteoporosis, unspecified osteoporosis type, unspecified pathological fracture presence ([facility]) Morbid obesity ([facility]) Morbid obesity Pre-diabetes Other abnormal glucose Anemia, unspecified type Vitamin deficiency Unspecified vitamin deficiency Post-viral cough syndrome Primary hypertension ([facility])- Primary Unspecified essential hypertension Allergic rhinitis, unspecified Acute cough Morbid obesity ([facility]) Morbid obesity Former cigarette smoker Personal history of tobacco use, presenting hazards to health Toxic metabolic encephalopathy- Primary Hemiparesis, right ([facility]) Unspecified hemiplegia affecting unspecified side Acute respiratory failure with hypoxia ([facility]) Heart murmur Undiagnosed cardiac murmurs Primary hypertension ([facility]) Unspecified essential hypertension Morbid obesity ([facility]) Morbid obesity Bipolar disorder with severe depression ([facility]) Slurred speech Other speech disturbance Bilateral lower extremity edema- Primary Primary hypertension ([facility]) Unspecified essential hypertension Lower extremity edema Edema Essential (primary) hypertension ([facility]) Unspecified essential hypertension Gastro-esophageal reflux disease without esophagitis Allergic rhinitis, unspecified Bilateral lower extremity edema- Primary Morbid (severe) obesity due to excess calories ([facility]) Body mass index (BMI) 45.0-49.9, adult ([facility]) Pre-diabetes Other abnormal glucose Bilateral lower extremity edema- Primary Essential (primary) hypertension ([facility]) Unspecified essential hypertension Allergic rhinitis, unspecified OSMANY (obstructive sleep apnea) Obstructive sleep apnea (adult) (pediatric) Primary hypertension ([facility]) Unspecified essential hypertension Morbid obesity ([facility]) Morbid obesity Acute cystitis without hematuria- Primary Tobacco dependence Tobacco use disorder Needs flu shot Need for prophylactic vaccination and inoculation against influenza Morbid obesity ([facility]/HCC) Morbid obesity Well woman exam with routine gynecological exam- Primary Routine gynecological examination Morbid obesity ([facility]/HCC) Morbid obesity Metabolic encephalopathy- Primary OSMANY (obstructive sleep apnea) Obstructive sleep apnea (adult) (pediatric) Restless leg Restless legs syndrome (RLS) 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 ([facility]) Degeneration of intervertebral disc of lumbar region with discogenic back pain and lower extremity pain Memory change Memory loss documented in this encounter [facility]* Diagnosis Left foot pain- Primary Pain in soft tissues of limb Primary hypertension ([facility]) Unspecified essential hypertension Class 3 severe obesity due to excess calories without serious comorbidity with body mass index (BMI) of 45.0 to 49.9 in adult ([facility]) Encounter for annual wellness visit (AWV) in Medicare patient- Primary OSMANY (obstructive sleep apnea) Obstructive sleep apnea (adult) (pediatric) Chronic pain disorder Chronic pain syndrome Gastroesophageal reflux disease, unspecified whether esophagitis present Overactive bladder Hypertonicity of bladder Lower extremity edema Edema Pre-diabetes Other abnormal glucose Morbid obesity ([facility]) Morbid obesity Yeast infection of the skin Candidiasis of skin and nails Tobacco dependence Tobacco use disorder Mood disorder ([facility]) Unspecified episodic mood disorder Primary hypertension ([facility]) Unspecified essential hypertension Left hip pain Pain in joint, pelvic region and thigh Open wound of anterior abdominal wall, initial encounter Primary hypertension ([facility])- Primary Unspecified essential hypertension Yeast infection of the skin Candidiasis of skin and nails Morbid obesity ([facility]) Morbid obesity Primary hypertension ([facility])- Primary Unspecified essential hypertension Encounter for screening mammogram for malignant neoplasm of breast Gastroesophageal reflux disease, unspecified whether esophagitis present Acute gout of right foot, unspecified cause Osteoporosis, unspecified osteoporosis type, unspecified pathological fracture presence ([facility]) Morbid obesity ([facility]) Morbid obesity Pre-diabetes Other abnormal glucose Anemia, unspecified type Vitamin deficiency Unspecified vitamin deficiency Post-viral cough syndrome Primary hypertension ([facility])- Primary Unspecified essential hypertension Allergic rhinitis, unspecified Acute cough Morbid obesity ([facility]) Morbid obesity Former cigarette smoker Personal history of tobacco use, presenting hazards to health Toxic metabolic encephalopathy- Primary Hemiparesis, right ([facility]) Unspecified hemiplegia affecting unspecified side Acute respiratory failure with hypoxia ([facility]) Heart murmur Undiagnosed cardiac murmurs Primary hypertension ([facility]) Unspecified essential hypertension Morbid obesity ([facility]) Morbid obesity Bipolar disorder with severe depression ([facility]) Slurred speech Other speech disturbance Bilateral lower extremity edema- Primary Primary hypertension ([facility]) Unspecified essential hypertension Lower extremity edema Edema Essential (primary) hypertension ([facility]) Unspecified essential hypertension Gastro-esophageal reflux disease without esophagitis Allergic rhinitis, unspecified Bilateral lower extremity edema- Primary Morbid (severe) obesity due to excess calories ([facility]) Body mass index (BMI) 45.0-49.9, adult ([facility]) Pre-diabetes Other abnormal glucose Bilateral lower extremity edema- Primary Essential (primary) hypertension ([facility]) Unspecified essential hypertension Allergic rhinitis, unspecified OSMANY (obstructive sleep apnea) Obstructive sleep apnea (adult) (pediatric) Primary hypertension ([facility]) Unspecified essential hypertension Morbid obesity ([facility]) Morbid obesity Acute cystitis without hematuria- Primary Tobacco dependence Tobacco use disorder Needs flu shot Need for prophylactic vaccination and inoculation against influenza Morbid obesity ([facility]) Morbid obesity Well woman exam with routine gynecological exam- Primary Routine gynecological examination Morbid obesity ([facility]) Morbid obesity Altered mental status, unspecified altered mental status type- Primary Restless leg Restless legs syndrome (RLS) 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[facility]) OSMANY (obstructive sleep apnea) Obstructive sleep apnea (adult) (pediatric) documented in this encounter [facility]* Diagnosis Left foot pain- Primary Pain in soft tissues of limb Primary hypertension ([facility] [address]/[facility]) Unspecified essential hypertension Class 3 severe obesity due to excess calories without serious comorbidity with body mass index (BMI) of 45.0 to 49.9 in adult ([facility]/[facility]) Encounter for annual wellness visit (AWV) in Medicare patient- Primary OSMANY (obstructive sleep apnea) Obstructive sleep apnea (adult) (pediatric) Chronic pain disorder Chronic pain syndrome Gastroesophageal reflux disease, unspecified whether esophagitis present Overactive bladder Hypertonicity of bladder Lower extremity edema Edema Pre-diabetes Other abnormal glucose Morbid obesity ([facility] [address]/[facility]) Morbid obesity Yeast infection of the skin Candidiasis of skin and nails Tobacco dependence Tobacco use disorder Mood disorder ([facility] [address]/[facility]) Unspecified episodic mood disorder Primary hypertension ([facility] [address]/[facility]) Unspecified essential hypertension Left hip pain Pain in joint, pelvic region and thigh Open wound of anterior abdominal wall, initial encounter Primary hypertension ([facility]/[facility])- Primary Unspecified essential hypertension Yeast infection of the skin Candidiasis of skin and nails Morbid obesity ([facility] [address]/[facility]) Morbid obesity Primary hypertension ([facility]/[facility])- Primary Unspecified essential hypertension Encounter for screening mammogram for malignant neoplasm of breast Gastroesophageal reflux disease, unspecified whether esophagitis present Acute gout of right foot, unspecified cause Osteoporosis, unspecified osteoporosis type, unspecified pathological fracture presence ([facility] [address]/[facility]) Morbid obesity ([facility] [address]/[facility]) Morbid obesity Pre-diabetes Other abnormal glucose Anemia, unspecified type Vitamin deficiency Unspecified vitamin deficiency Post-viral cough syndrome Primary hypertension ([facility] [address]/HCC)- Primary Unspecified essential hypertension Allergic rhinitis, unspecified Acute cough Morbid obesity ([facility]/[facility]) Morbid obesity Former cigarette smoker Personal history of tobacco use, presenting hazards to health Toxic metabolic encephalopathy- Primary Hemiparesis, right ([facility] [address]/[facility]) Unspecified hemiplegia affecting unspecified side Acute respiratory failure with hypoxia ([facility] [address]/[facility]) Heart murmur Undiagnosed cardiac murmurs Primary hypertension ([facility]/[facility]) Unspecified essential hypertension Morbid obesity ([facility]/[facility]) Morbid obesity Bipolar disorder with severe depression ([facility]) Slurred speech Other speech disturbance Bilateral lower extremity edema- Primary Primary hypertension ([facility] [address]/[facility]) Unspecified essential hypertension Lower extremity edema Edema Essential (primary) hypertension ([facility]/[facility]) Unspecified essential hypertension Gastro-esophageal reflux disease without esophagitis Allergic rhinitis, unspecified Bilateral lower extremity edema- Primary Morbid (severe) obesity due to excess calories ([facility] [address]/[facility]) Body mass index (BMI) 45.0-49.9, adult ([facility] [address]/[facility]) Pre-diabetes Other abnormal glucose Bilateral lower extremity edema- Primary Essential (primary) hypertension ([facility] [address]/[facility]) Unspecified essential hypertension Allergic rhinitis, unspecified OSMANY (obstructive sleep apnea) Obstructive sleep apnea (adult) (pediatric) Primary hypertension ([facility] [address]/[facility]) Unspecified essential hypertension Morbid obesity ([facility] [address]/[facility]) Morbid obesity Acute cystitis without hematuria- Primary Tobacco dependence Tobacco use disorder Needs flu shot Need for prophylactic vaccination and inoculation against influenza Morbid obesity ([facility] [address]/[facility]) Morbid obesity Well woman exam with routine gynecological exam- Primary Routine gynecological examination Morbid obesity ([facility] [address]/[facility]) Morbid obesity Altered mental status, unspecified altered mental status type- Primary Memory change Memory loss Concentration deficit 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 ([facility] [address]/[facility]) PTSD (post-traumatic stress disorder) ([facility]/[facility]) Posttraumatic stress disorder Bipolar affective disorder, remission status unspecified ([facility]/[facility]) Family history of dementia Family [...] glucose Morbid obesity ([facility]) Morbid obesity Yeast infection of the skin Candidiasis of skin and nails Tobacco dependence Tobacco use disorder Mood disorder ([facility]/HCC) Unspecified episodic mood disorder Primary hypertension ([facility]/[facility]) Unspecified essential hypertension Left hip pain Pain in joint, pelvic region and thigh Open wound of anterior abdominal wall, initial encounter Primary hypertension ([facility]/HCC)- Primary Unspecified essential hypertension Yeast infection of the skin Candidiasis of skin and nails Morbid obesity ([facility] [address]/[facility] Morbid obesity Primary hypertension ([facility]/[facility])- Primary Unspecified essential hypertension Allergic rhinitis, unspecified Acute cough Morbid obesity ([facility]) Morbid obesity Former cigarette smoker Personal history of tobacco use, presenting hazards to health Toxic metabolic encephalopathy- Primary Hemiparesis, right ([facility] [address]/[facility]) Unspecified hemiplegia affecting unspecified side Acute respiratory failure with hypoxia ([facility]) Heart murmur Undiagnosed cardiac murmurs Primary hypertension ([facility]) Unspecified essential hypertension Morbid obesity ([facility]) Morbid obesity Bipolar disorder with severe depression ([facility]) Slurred speech Other speech disturbance Bilateral lower extremity edema- Primary Primary hypertension ([facility] [address]/[facility]) Unspecified essential hypertension Lower extremity edema Edema Essential (primary) hypertension ([facility] [address]/[facility]) Unspecified essential hypertension Gastro-esophageal reflux disease without esophagitis Allergic rhinitis, unspecified Bilateral lower extremity edema- Primary Morbid (severe) obesity due to excess calories ([facility]) Body mass index (BMI) 45.0-49.9, adult ([facility] [address]/[facility]) Pre-diabetes Other abnormal glucose Bilateral lower extremity edema- Primary Essential (primary) hypertension ([facility] [address]/[facility]) Unspecified essential hypertension Allergic rhinitis, unspecified OSMANY (obstructive sleep apnea) Obstructive sleep apnea (adult) (pediatric) Primary hypertension ([facility]/[facility]) Unspecified essential hypertension Morbid obesity ([facility]/[facility]) Morbid obesity Acute cystitis without hematuria- Primary Tobacco dependence Tobacco use disorder Needs flu shot Need for prophylactic vaccination and inoculation against influenza Morbid obesity ([facility] [address]/HCC) Morbid obesity Well woman exam with routine gynecological exam- Primary Routine gynecological examination Morbid obesity ([facility] [address]/HCC) Morbid obesity Restless leg Restless legs syndrome (RLS) Metabolic encephalopathy- Primary OSMANY (obstructive sleep apnea) Obstructive sleep apnea (adult) (pediatric) Morbid obesity ([facility] [address]/[facility]) Morbid obesity Bilateral lower extremity edema Tobacco dependence Tobacco use disorder Bipolar disorder with severe depression ([facility]/[facility]) At risk for polypharmacy Anxiety [...] glucose Morbid obesity ([facility] [address]/HCC) Morbid obesity Yeast infection of the skin Candidiasis of skin and nails Tobacco dependence Tobacco use disorder Mood disorder ([facility]/HCC) Unspecified episodic mood disorder Primary hypertension ([facility] [address]/[facility]) Unspecified essential hypertension Left hip pain Pain in joint, pelvic region and thigh Open wound of anterior abdominal wall, initial encounter Primary hypertension ([facility]/HCC)- Primary Unspecified essential hypertension Yeast infection of the skin Candidiasis of skin and nails Morbid obesity ([facility] [address]/[facility]) Morbid obesity Primary hypertension ([facility]/[facility])- Primary Unspecified essential hypertension Allergic rhinitis, unspecified Acute cough Morbid obesity ([facility] [address]/[facility]) Morbid obesity Former cigarette smoker Personal history of tobacco use, presenting hazards to health Toxic metabolic encephalopathy- Primary Hemiparesis, right ([facility]) Unspecified hemiplegia affecting unspecified side Acute respiratory failure with hypoxia ([facility]) Heart murmur Undiagnosed cardiac murmurs Primary hypertension ([facility]/[facility]) Unspecified essential hypertension Morbid obesity ([facility]) Morbid obesity Bipolar disorder with severe depression ([facility]) Slurred speech Other speech disturbance Bilateral lower extremity edema- Primary Primary hypertension ([facility]) Unspecified essential hypertension Lower extremity edema Edema Essential (primary) hypertension ([facility] [address]/[facility]) Unspecified essential hypertension Gastro-esophageal reflux disease without esophagitis Allergic rhinitis, unspecified Bilateral lower extremity edema- Primary Morbid (severe) obesity due to excess calories ([facility]) Body mass index (BMI) 45.0-49.9, adult ([facility] [address]/[facility]) Pre-diabetes Other abnormal glucose Bilateral lower extremity edema- Primary Essential (primary) hypertension ([facility] [address]/HCC) Unspecified essential hypertension Allergic rhinitis, unspecified OSMANY (obstructive sleep apnea) Obstructive sleep apnea (adult) (pediatric) Primary hypertension ([facility]) Unspecified essential hypertension Morbid obesity ([facility]) Morbid obesity Acute cystitis without hematuria- Primary Tobacco dependence Tobacco use disorder Needs flu shot Need for prophylactic vaccination and inoculation against influenza Morbid obesity ([facility]/HCC) Morbid obesity Well woman exam with routine gynecological exam- Primary Routine gynecological examination Morbid obesity (CMS/HCC) Morbid obesity Metabolic encephalopathy- Primary OSMANY (obstructive sleep apnea) Obstructive sleep apnea (adult) (pediatric) Morbid obesity ([facility]/HCC) Morbid obesity Bilateral lower extremity edema Tobacco dependence Tobacco use disorder Bipolar disorder with severe depression ([facility]/[facility]) At risk for polypharmacy Anxiety Anxiety state, unspecified Primary hypertension ([facility] [address]/[facility]) Unspecified essential hypertension Right bundle branch block (RBBB) determined by electrocardiography documented [facility] Diagnosis Yeast infection of the skin- Primary Candidiasis of skin and nails documented in [facility] Diagnosis 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[facility]/[facility])- Primary Restless leg Restless legs syndrome (RLS) Metabolic encephalopathy documented in [facility]* Diagnosis OSMANY (obstructive sleep apnea)- Primary Obstructive sleep apnea (adult) (pediatric) Restless leg Restless legs syndrome (RLS) documented in [facility]* Diagnosis Bilateral lower extremity edema- Primary Essential (primary) hypertension ([facility]/HCC) Unspecified essential hypertension Allergic rhinitis, unspecified OSMANY (obstructive sleep apnea) Obstructive sleep apnea (adult) (pediatric) Primary hypertension ([facility]/[facility]) Unspecified essential hypertension Morbid obesity ([facility] Morbid obesity documented in this [...] glucose Morbid obesity ([facility]) Morbid obesity Yeast infection of the skin Candidiasis of skin and nails Tobacco dependence Tobacco use disorder Mood disorder ([facility]) Unspecified episodic mood disorder Primary hypertension ([facility]) Unspecified essential hypertension Left hip pain Pain in joint, pelvic region and thigh Open wound of anterior abdominal wall, initial encounter Primary hypertension ([facility] [address]/[facility])- Primary Unspecified essential hypertension Yeast infection of the skin Candidiasis of skin and nails Morbid obesity ([facility]/HCC) Morbid obesity Primary hypertension ([facility]/HCC)- Primary Unspecified essential hypertension Allergic rhinitis, unspecified Acute cough Morbid obesity ([facility]) Morbid obesity Former cigarette smoker Personal history of tobacco use, presenting hazards to health Toxic metabolic encephalopathy- Primary Hemiparesis, right ([facility]) Unspecified hemiplegia affecting unspecified side Acute respiratory failure with hypoxia ([facility]) Heart murmur Undiagnosed cardiac murmurs Primary hypertension ([facility]) Unspecified essential hypertension Morbid obesity ([facility]) Morbid obesity Bipolar disorder with severe depression ([facility]) Slurred speech Other speech disturbance Bilateral lower extremity edema- Primary Primary hypertension ([facility]/[facility]) Unspecified essential hypertension Lower extremity edema Edema Essential (primary) hypertension ([facility]/[facility]) Unspecified essential hypertension Gastro-esophageal reflux disease without esophagitis Allergic rhinitis, unspecified Bilateral lower extremity edema- Primary Morbid (severe) obesity due to excess calories ([facility]) Body mass index (BMI) 45.0-49.9, adult ([facility]) Pre-diabetes Other abnormal glucose Bilateral lower extremity edema- Primary Essential (primary) hypertension ([facility]/[facility]) Unspecified essential hypertension Allergic rhinitis, unspecified OSMANY (obstructive sleep apnea) Obstructive sleep apnea (adult) (pediatric) Primary hypertension ([facility]/[facility]) Unspecified essential hypertension Morbid obesity ([facility]/[facility]) Morbid obesity Acute cystitis without hematuria- Primary Tobacco dependence Tobacco use disorder Needs flu shot Need for prophylactic vaccination and inoculation against influenza Morbid obesity ([facility]/[facility]) Morbid obesity Well woman exam with routine gynecological exam- Primary Routine gynecological examination Morbid obesity ([facility]) Morbid obesity Metabolic encephalopathy- Primary OSMANY (obstructive sleep apnea) Obstructive sleep apnea (adult) (pediatric) Morbid obesity ([facility]/[facility]) Morbid obesity Bilateral lower extremity edema Tobacco dependence Tobacco use disorder Bipolar disorder with severe depression ([facility]) At risk for polypharmacy Anxiety Anxiety state, unspecified Primary hypertension ([facility]/[facility]) Unspecified essential hypertension Right bundle branch block (RBBB) determined by electrocardiography Metabolic encephalopathy- Primary Memory change Memory loss Altered mental status, unspecified altered mental status type Concentration deficit PTSD (post-traumatic stress disorder) ([facility] [address]/[facility]) Posttraumatic stress disorder Bipolar affective disorder, remission status unspecified ([facility]) Family history of dementia Family history of other neurological diseases 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[facility]) OSMANY (obstructive sleep apnea) Obstructive [...] glucose Morbid obesity ([facility]/[facility]) Morbid obesity Yeast infection of the skin Candidiasis of skin and nails Tobacco dependence Tobacco use disorder Mood disorder (CMS/HCC) Unspecified episodic mood disorder Primary hypertension ([facility]/HCC) Unspecified essential hypertension Left hip pain Pain in joint, pelvic region and thigh Open wound of anterior abdominal wall, initial encounter Primary hypertension (CMS/HCC)- Primary Unspecified essential hypertension Yeast infection of the skin Candidiasis of skin and nails Morbid obesity (CMS/HCC) Morbid obesity Primary hypertension (CMS/HCC)- Primary Unspecified essential hypertension Allergic rhinitis, unspecified Acute cough Morbid obesity ([facility]/[facility]) Morbid obesity Former cigarette smoker Personal history of tobacco use, presenting hazards to health Toxic metabolic encephalopathy- Primary Hemiparesis, right (CMS/[facility]) Unspecified hemiplegia affecting unspecified side Acute respiratory failure with hypoxia ([facility]) Heart murmur Undiagnosed cardiac murmurs Primary hypertension ([facility]) Unspecified essential hypertension Morbid obesity ([facility] Morbid obesity Bipolar disorder with severe depression ([facility] [facility]) Slurred speech Other speech disturbance Bilateral lower extremity edema- Primary Primary hypertension ([facility]/HCC) Unspecified essential hypertension Lower extremity edema Edema Essential (primary) hypertension ([facility]/[facility]) Unspecified essential hypertension Gastro-esophageal reflux disease without esophagitis Allergic rhinitis, unspecified Bilateral lower extremity edema- Primary Morbid (severe) obesity due to excess calories ([facility]) Body mass index (BMI) 45.0-49.9, adult ([facility]) Pre-diabetes Other abnormal glucose Bilateral lower extremity edema- Primary Essential (primary) hypertension ([facility]) Unspecified essential hypertension Allergic rhinitis, unspecified OSMANY (obstructive sleep apnea) Obstructive sleep apnea (adult) (pediatric) Primary hypertension ([facility]) Unspecified essential hypertension Morbid obesity ([facility]) Morbid obesity Acute cystitis without hematuria- Primary Tobacco dependence Tobacco use disorder Needs flu shot Need for prophylactic vaccination and inoculation against influenza Morbid obesity (CMS/HCC) Morbid obesity Well woman exam with routine gynecological exam- Primary Routine gynecological examination Morbid obesity ([facility]/HCC) Morbid obesity Metabolic encephalopathy- Primary OSMANY (obstructive sleep apnea) Obstructive sleep apnea (adult) (pediatric) Morbid obesity ([facility]/HCC) Morbid obesity Bilateral lower extremity edema Tobacco dependence Tobacco use disorder Bipolar disorder with severe depression ([facility]) At risk for polypharmacy Anxiety Anxiety state, unspecified Primary hypertension ([facility]/HCC) Unspecified essential hypertension Right bundle branch block (RBBB) determined by electrocardiography Transient alteration of awareness- Primary Restless leg Restless legs syndrome (RLS) documented in this encounter [facility] HealthcareEvaluation note* Diagnosis Encounter for annual [...] disorder Primary hypertension ([facility]) Unspecified essential hypertension Left hip pain Pain in joint, pelvic region and thigh Open wound of anterior abdominal wall, initial encounter Primary hypertension ([facility]/HCC)- Primary Unspecified essential hypertension Yeast infection of the skin Candidiasis of skin and nails Morbid obesity ([facility]/HCC) Morbid obesity Primary hypertension ([facility])- Primary Unspecified essential hypertension Allergic rhinitis, unspecified Acute cough Morbid obesity ([facility]) Morbid obesity Former cigarette smoker Personal history of tobacco use, presenting hazards to health Toxic metabolic encephalopathy- Primary Hemiparesis, right ([facility]) Unspecified hemiplegia affecting unspecified side Acute respiratory failure with hypoxia ([facility]) Heart murmur Undiagnosed cardiac murmurs Primary hypertension ([facility]) Unspecified essential hypertension Morbid obesity ([facility]) Morbid obesity Bipolar disorder with severe depression ([facility]) Slurred speech Other speech disturbance Bilateral lower extremity edema- Primary Primary hypertension ([facility]) Unspecified essential hypertension Lower extremity edema Edema Essential (primary) hypertension ([facility]) Unspecified essential hypertension Gastro-esophageal reflux disease without esophagitis Allergic rhinitis, unspecified Bilateral lower extremity edema- Primary Morbid (severe) obesity due to excess calories ([facility]) Body mass index (BMI) 45.0-49.9, adult ([facility]) Pre-diabetes Other abnormal glucose Bilateral lower extremity edema- Primary Essential (primary) hypertension ([facility]/HCC) Unspecified essential hypertension Allergic rhinitis, unspecified OSMANY (obstructive sleep apnea) Obstructive sleep apnea (adult) (pediatric) Primary hypertension ([facility]/HCC) Unspecified essential hypertension Morbid obesity ([facility]) Morbid obesity Acute cystitis without [...] (pediatric) Morbid obesity ([facility]/HCC) Morbid obesity Bilateral lower extremity edema Tobacco dependence Tobacco use disorder Bipolar disorder with severe depression ([facility]) At risk for polypharmacy Anxiety Anxiety state, unspecified Primary hypertension ([facility]) Unspecified essential hypertension Right bundle branch block (RBBB) determined by electrocardiography Primary hypertension ([facility])- Primary Unspecified essential hypertension Chronic kidney disease, stage 3a (HCC) ([facility]) Morbid (severe) obesity due to excess calories ([facility]) Body mass index (BMI) 45.0-49.9, adult ([facility]) OSMANY (obstructive sleep apnea) Obstructive sleep apnea (adult) (pediatric) Hemiparesis, right ([facility]) Unspecified hemiplegia affecting unspecified side Gastroesophageal reflux disease, unspecified whether esophagitis present Metabolic encephalopathy Essential (primary) hypertension ([facility]) Unspecified essential hypertension Allergic rhinitis, unspecified Gastro-esophageal reflux disease without esophagitis Bilateral lower extremity edema documented in this encounter [facility] HealthcareEvaluation note* Diagnosis Encounter for annual wellness visit (AWV) in Medicare patient- Primary OSMANY (obstructive sleep apnea) Obstructive sleep apnea (adult) (pediatric) Chronic pain disorder Chronic pain syndrome Gastroesophageal reflux disease, unspecified whether esophagitis present Overactive bladder Hypertonicity of bladder Lower extremity edema Edema Pre-diabetes Other abnormal glucose Morbid obesity ([facility]) Morbid obesity Yeast infection of the skin Candidiasis of skin and nails Tobacco dependence Tobacco use disorder Mood disorder ([facility]) Unspecified episodic mood disorder Primary hypertension ([facility]) Unspecified essential hypertension Left hip pain Pain in joint, pelvic region and thigh Open wound of anterior abdominal wall, initial encounter Primary hypertension ([facility]/HCC)- Primary Unspecified essential hypertension Yeast infection of the skin Candidiasis of skin and nails Morbid obesity ([facility]/HCC) Morbid obesity Primary hypertension ([facility]/HCC)- Primary Unspecified essential hypertension Allergic rhinitis, unspecified Acute cough Morbid obesity ([facility]) Morbid obesity Former cigarette smoker Personal history of tobacco use, presenting hazards to health Toxic metabolic encephalopathy- Primary Hemiparesis, right ([facility]) Unspecified hemiplegia affecting unspecified side Acute respiratory failure with hypoxia ([facility]) Heart murmur Undiagnosed cardiac murmurs Primary hypertension ([facility]) Unspecified essential hypertension Morbid obesity ([facility]) Morbid obesity Bipolar disorder with severe depression ([facility]) Slurred speech Other speech disturbance Bilateral lower extremity edema- Primary Primary hypertension ([facility]) Unspecified essential hypertension Lower extremity edema Edema Essential (primary) hypertension ([facility]) Unspecified essential hypertension Gastro-esophageal reflux disease without esophagitis Allergic rhinitis, unspecified Bilateral lower extremity edema- Primary Morbid (severe) obesity due to excess calories ([facility]) Body mass index (BMI) 45.0-49.9, adult ([facility]) Pre-diabetes Other abnormal glucose Bilateral lower extremity edema- Primary Essential (primary) hypertension ([facility]) Unspecified essential hypertension Allergic rhinitis, unspecified OSMANY (obstructive sleep apnea) Obstructive sleep apnea (adult) (pediatric) Primary hypertension ([facility]) Unspecified essential hypertension Morbid obesity ([facility]) Morbid obesity Acute cystitis without hematuria- Primary Tobacco dependence Tobacco use disorder Needs flu shot Need for prophylactic vaccination and inoculation against influenza Morbid obesity ([facility]) Morbid obesity Well woman exam with routine gynecological exam- Primary Routine gynecological examination Morbid obesity ([facility]) Morbid obesity Metabolic encephalopathy- Primary OSMANY (obstructive sleep apnea) Obstructive sleep apnea (adult) (pediatric) Morbid obesity ([facility]) Morbid obesity Bilateral lower extremity edema Tobacco dependence Tobacco use disorder Bipolar disorder with severe depression ([facility]) At risk for polypharmacy Anxiety Anxiety state, unspecified Primary hypertension ([facility]) Unspecified essential hypertension Right bundle branch block (RBBB) determined by electrocardiography Primary hypertension ([facility])- Primary Unspecified essential hypertension Chronic kidney disease, stage 3a (HCC) ([facility]) Morbid (severe) obesity due to excess calories ([facility]) Body mass index (BMI) 45.0-49.9, adult ([facility]) OSMANY (obstructive sleep apnea) Obstructive sleep apnea (adult) (pediatric) Hemiparesis, right ([facility]) Unspecified hemiplegia affecting unspecified side Gastroesophageal reflux disease, unspecified whether esophagitis present Metabolic encephalopathy Essential (primary) hypertension ([facility]) Unspecified essential hypertension Allergic rhinitis, unspecified Gastro-esophageal reflux disease without esophagitis Bilateral lower extremity edema 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 ([facility])- Primary OSMANY (obstructive sleep apnea) Obstructive sleep apnea (adult) (pediatric) Metabolic encephalopathy Restless leg Restless legs syndrome (RLS) Degeneration of intervertebral disc of lumbar region with discogenic back pain and lower extremity pain documented in this encounter [facility] HealthcareEvaluation note* Diagnosis Encounter for annual wellness visit (AWV) in Medicare patient- Primary OSMANY (obstructive sleep apnea) Obstructive sleep apnea (adult) (pediatric) Chronic pain disorder Chronic pain syndrome Gastroesophageal reflux disease, unspecified whether esophagitis present Overactive bladder Hypertonicity of bladder Lower extremity edema Edema Pre-diabetes Other abnormal glucose Morbid obesity ([facility]/HCC) Morbid obesity Yeast infection of the skin Candidiasis of skin and nails Tobacco dependence Tobacco use disorder Mood disorder (CMS/HCC) Unspecified episodic mood disorder Primary hypertension ([facility]) Unspecified essential hypertension Left hip pain Pain in joint, pelvic region and thigh Open wound of anterior abdominal wall, initial encounter Primary hypertension ([facility]/HCC)- Primary Unspecified essential hypertension Yeast infection of the skin Candidiasis of skin and nails Morbid obesity ([facility]/HCC) Morbid obesity Primary hypertension ([facility])- Primary Unspecified essential hypertension Allergic rhinitis, unspecified Acute cough Morbid obesity ([facility]) Morbid obesity Former cigarette smoker Personal history of tobacco use, presenting hazards to health Toxic metabolic encephalopathy- Primary Hemiparesis, right ([facility]) Unspecified hemiplegia affecting unspecified side Acute respiratory failure with hypoxia ([facility]) Heart murmur Undiagnosed cardiac murmurs Primary hypertension ([facility]) Unspecified essential hypertension Morbid obesity ([facility]) Morbid obesity Bipolar disorder with severe depression ([facility]) Slurred speech Other speech disturbance Bilateral lower extremity edema- Primary Primary hypertension ([facility]) Unspecified essential hypertension Lower extremity edema Edema Essential (primary) hypertension ([facility]) Unspecified essential hypertension Gastro-esophageal reflux disease without esophagitis Allergic rhinitis, unspecified Bilateral lower extremity edema- Primary Morbid (severe) obesity due to excess calories ([facility]) Body mass index (BMI) 45.0-49.9, adult ([facility]) Pre-diabetes Other abnormal glucose Bilateral lower extremity edema- Primary Essential (primary) hypertension ([facility]/HCC) Unspecified essential hypertension Allergic rhinitis, unspecified OSMANY (obstructive sleep apnea) Obstructive sleep apnea (adult) (pediatric) Primary hypertension ([facility]/HCC) Unspecified essential hypertension Morbid obesity ([facility]) Morbid obesity Acute cystitis without hematuria- Primary Tobacco dependence Tobacco use disorder Needs flu shot Need for prophylactic vaccination and inoculation against influenza Morbid obesity (CMS/HCC) Morbid obesity Well woman exam with routine gynecological exam- Primary Routine gynecological examination Morbid obesity ([facility]/HCC) Morbid obesity Metabolic encephalopathy- Primary OSMANY (obstructive sleep apnea) Obstructive sleep apnea (adult) (pediatric) Morbid obesity ([facility]/HCC) Morbid obesity Bilateral lower extremity edema Tobacco dependence Tobacco use disorder Bipolar disorder with severe depression ([facility]) At risk for polypharmacy Anxiety Anxiety state, unspecified Primary hypertension ([facility]) Unspecified essential hypertension Right bundle branch block (RBBB) determined by electrocardiography Primary hypertension ([facility])- Primary Unspecified essential hypertension Chronic kidney disease, stage 3a (HCC) ([facility]) Morbid (severe) obesity due to excess calories ([facility]) Body mass index (BMI) 45.0-49.9, adult ([facility]) OSMANY (obstructive sleep apnea) Obstructive sleep apnea (adult) (pediatric) Hemiparesis, right ([facility]) Unspecified hemiplegia affecting unspecified side Gastroesophageal reflux disease, unspecified whether esophagitis present Metabolic encephalopathy Essential (primary) hypertension ([facility]) Unspecified essential hypertension Allergic rhinitis, unspecified Gastro-esophageal reflux disease without esophagitis Bilateral lower extremity edema Restless leg Restless legs syndrome (RLS) documented in this encounter [facility] HealthcareEvaluation note* Diagnosis Encounter for annual wellness visit (AWV) in Medicare patient- Primary OSMANY (obstructive sleep apnea) Obstructive sleep apnea (adult) (pediatric) Chronic pain disorder Chronic pain syndrome Gastroesophageal reflux disease, unspecified whether esophagitis present Overactive bladder Hypertonicity of bladder Lower extremity edema Edema Pre-diabetes Other abnormal glucose Morbid obesity ([facility]) Morbid obesity Yeast infection of the skin Candidiasis of skin and nails Tobacco dependence Tobacco use disorder Mood disorder ([facility]) Unspecified episodic mood disorder Primary hypertension ([facility]) Unspecified essential hypertension Left hip pain Pain in joint, pelvic region and thigh Open wound of anterior abdominal wall, initial encounter Primary hypertension ([facility]/HCC)- Primary Unspecified essential hypertension Yeast infection of the skin Candidiasis of skin and nails Morbid obesity ([facility]) Morbid obesity Primary hypertension ([facility])- Primary Unspecified essential hypertension Allergic rhinitis, unspecified Acute cough Morbid obesity ([facility]) Morbid obesity Former cigarette smoker Personal history of tobacco use, presenting hazards to health Toxic metabolic encephalopathy- Primary Hemiparesis, right ([facility]) Unspecified hemiplegia affecting unspecified side Acute respiratory failure with hypoxia ([facility]) Heart murmur Undiagnosed cardiac murmurs Primary hypertension ([facility]) [facility]specified essential hypertension Morbid obesity ([facility] Morbid obesity Bipolar disorder with severe depression ([facility]) Slurred speech Other speech disturbance Bilateral lower extremity edema- Primary Primary hypertension ([facility]/HCC) Unspecified essential hypertension Lower extremity edema Edema Essential (primary) hypertension ([facility]) Unspecified essential hypertension Gastro-esophageal reflux disease without esophagitis Allergic rhinitis, unspecified Bilateral lower extremity edema- Primary Morbid (severe) obesity due to excess calories ([facility]) Body mass index (BMI) 45.0-49.9, adult ([facility]) Pre-diabetes Other abnormal glucose Bilateral lower extremity edema- Primary Essential (primary) hypertension ([facility]) Unspecified essential hypertension Allergic rhinitis, unspecified OSMANY (obstructive sleep apnea) Obstructive sleep apnea (adult) (pediatric) Primary hypertension ([facility]) Unspecified essential hypertension Morbid obesity ([facility] [facility]) Morbid obesity Acute cystitis without hematuria- Primary Tobacco dependence Tobacco use disorder Needs flu shot Need for prophylactic vaccination and inoculation against influenza Morbid obesity ([facility]) Morbid obesity Well woman exam with routine gynecological exam- Primary Routine gynecological examination Morbid obesity ([facility]) Morbid obesity Metabolic encephalopathy- Primary OSMANY (obstructive sleep apnea) Obstructive sleep apnea (adult) (pediatric) Morbid obesity ([facility]) Morbid obesity Bilateral lower extremity edema Tobacco dependence Tobacco use disorder Bipolar disorder with severe depression ([facility]) At risk for polypharmacy Anxiety Anxiety state, unspecified Primary hypertension ([facility]) Unspecified essential hypertension Right bundle branch block (RBBB) determined by electrocardiography Primary hypertension ([facility])- Primary Unspecified essential hypertension Chronic kidney disease, stage 3a (HCC) ([facility]) Morbid (severe) obesity due to excess calories ([facility]) Body mass index (BMI) 45.0-49.9, adult ([facility]) OSMANY (obstructive sleep apnea) Obstructive sleep apnea (adult) (pediatric) Hemiparesis, right ([facility]) Unspecified hemiplegia affecting unspecified side Gastroesophageal reflux disease, unspecified whether esophagitis present Metabolic encephalopathy Essential (primary) hypertension ([facility]) Unspecified essential hypertension Allergic rhinitis, unspecified Gastro-esophageal reflux disease without esophagitis Bilateral lower extremity edema URI, acute- Primary Acute upper respiratory infections of unspecified site documented in this encounter [facility] HealthcareHistory and physical note Author Jace Graham [facility] March 23, 2023 11:21am Note Date/Time March 23, 2023 11:21am [facility] [address] [place] [address] Gastroenterology H&P Signed Patient: Michelle Be MR#: [id number] : 1960 Acct:[id number] Age/Sex: 62 / F Adm Date: 3 Loc: Room: Type: [facility] Attending Dr: Jace Graham MD [...] signed by Jace Graham MD> 03/23/23 [address] [facility] Work Phone: History general Narrative [...] see above surg Hospitalization History stroke 2018 [facility] Other Hospital Discharge instructions Additional Instructions Regular Diet No Activity [facility] Work Phone: Hospital Discharge instructions [...] years. -Follow up with PCP. -Office number [phone].[facility] Work Phone: Reason for visit Narrative* Consultation (Routine) - Closed Specialty Diagnoses / Procedures Referred By Contac t Referred To Contact Neuropsychology Diagnoses Memory change Procedures [place] OFFICE/OUTPATIENT [facility] Juany Ramirez PA [address] [place] [address] Phone: tel: fax: David Foster, PhD [address] [address] Phone: tel: fax: Referral ID Status Reason Start Date Expiration Date V isits Requested Visits Authorized [id number] Closed Specialty Services Required 03/07/2024 09/03/2024 1 1 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 03/16/2024 9:42 AM darian atkins of employment law attorney Power of Nuclear Plant Instrument Technician 03/10/2024 3:12 PM POA Chief Complaint and Reason for Visit Chief Complaint Bipolar Depression Reason for Visit Allergies Bipolar 2 disorder Hypertension Morbid obesity with BMI of 45.0-49.9, adult OSMANY (obstructive sleep apnea) Restless legs syndrome Chief Complaint Screening Additional Source Comments INFORMATION SOURCE (unrecogn ized section and content) DATE CREATED AUTHOR 02/18/2019 [facility] DATE CREATED AUTHOR AUTHOR'S ORGANIZ ATION 11/15/2021 Chavez Josemanuel [facility] DATE CREATED AUTHOR AUTHOR'S ORGANIZ ATION 08/16/2022 [facility] DATE CREATED AUTHOR AUTHOR'S ORGANIZ ATION 05/25/2024 [facility] EPIC DATE CREATED AUTHOR AUTHOR'S ORGANIZ ATION 05/28/2024 [facility] DATE CREATED AUTHOR AUTHOR'S ORGANIZ ATION 07/04/2024 [facility] ysician Group Care Teams (unrecognized [...] MD Other Provider Active Joellen Le , BANQUET CAPTAIN-C Other Provider Active Severo Yancey MD Other Provider Active Rao Webber MD Other Provider Active Yuan Shi MD Other Provider Active Delroy Ramirez MD Other Provider Active Berta Comer , DO Other Provider Active Negrito Ruiz , DO Other Provider Active Lacho Singh , DO Other Provider Active Rachana Obika , BRIDGE MECHANIC Other Provider Active Rob Lake , DO Other Provider Active Jeff Alvarez MD Other Provider Active Urmila Rinaldi BRIDGE MECHANIC Other Provider Active Bina Mayberry APRN Other Provider Active Mir Bradford MD Other Provider Active Te Da Silva MD Other Provider Active Debra Landaverde RN Other Provider Active Team Status: Inactive Member Role Status Dates Adelaida Hebob Primary Care Provider Active Jace Graham MD Attending Provider Active Food Order Expediter Relationship Specialty Start Date End Date José Luis Roberts MD [address] [place] [phone] PCP - General Family Medicine 05/18/23 Adelaida Carrion NP [address] [place] [address] Referring Physician Nurse Practitioner 10/14/22 Food Order Expediter Relationship Specialty Start Date End Date José Luis Roberts MD [address] [place] [address] PCP - General Family Medicine 05/18/23 Adelaida Carrion NP [address] [place] [address] Referring Physician Nurse Practitioner 10/14/22 Food Order Expediter Relationship Specialty Start Date End Date José Luis Roberts MD [address] [place] [address] PCP - General Family Medicine 05/18/23 Adelaida Carrion NP [address] [place] [address] Referring Physician Nurse Practitioner 10/14/22 Food Order Expediter Relationship Specialty Start Date End Date José Luis Roberts MD [address] [place] [address] PCP - General Family Medicine 05/18/23 Adelaida Carrion NP Referring Physician Nurse Practitioner 10/14/22 Miriam Suarez DO [address] [place], [place] [address] Referring Physician Neurology 06/29/23 [place] LPN Licensed Practical Nurse Family Medicine 12/18/23 Food Order Expediter Relationship Specialty Start Date End Date José Luis Roberts MD [address] [place] [address] PCP - General Family Medicine 05/18/23 Adelaida Carrion, BRIANA Referring Physician Nurse Practitioner 10/14/22 Miriam Suarez DO [address] [place] [address] Referring Physician Neurology 06/29/23 [place] LPN Licensed Practical Nurse Family Medicine 12/18/23 Food Order Expediter Relationship Specialty Start Date End Date Unallocated, Familias MD [address] [place] [address] PCP - General Family Medicine 01/27/24 Miriam Suarez DO [address] [place] [address] Referring Physician Neurology 06/29/23 [place] LPN Licensed Practical Nurse Family Medicine 12/18/23 Adelaida Carrion, BRIANA [address] [place] [address] Nurse Practitioner Family Medicine 01/27/24 Food Order Expediter Relationship Specialty Start Date End Date Unallocated, Noms MD [address] [place] [address] PCP - General Family Medicine 01/27/24 Miriam Suarez DO [address] [place] [address] Referring Physician Neurology 06/29/23 [place] LPN Licensed Practical Nurse Family Medicine 12/18/23 Adelaida Carrion NP [address] [place] [address] Nurse Practitioner Family Medicine 01/27/24 Food Order Expediter Relationship Specialty Start Date End Date José Luis Roberts MD [address] [place] [address] PCP - General Family Medicine 02/02/24 Miriam Suarez DO [address] [place] [address] Referring Physician Neurology 06/29/23 [place] LPN Licensed Practical Nurse Family Medicine 12/18/23 Adelaida Carrion NP [address] [place] [address] Nurse Practitioner Family Medicine 01/27/24 Food Order Expediter Relationship Specialty Start Date End Date José Luis Roberts MD [address] [place] [address] PCP - General Family Medicine 02/02/24 Miriam Suarez DO [address] [place] [id number] Referring Physician Neurology 06/29/23 Adelaida Carrion NP [address] [place] [address] Nurse Practitioner Family Medicine 01/27/24 Bong Rosado MA Family Medicine 02/12/24 Food Order Expediter Relationship Specialty Start Date End Date José Luis Roberts MD [address] [place] [address] PCP - General Family Medicine 02/02/24 Miriam Suarez DO [address] [place], [place] [address] Referring Physician Neurology 06/29/23 Adelaida Carrion, BRIANA [address] [place] [address] Nurse Practitioner Family Medicine 01/27/24 Bong Rosado MA [facility] Medicine 02/12/24 Food Order Expediter Relationship Specialty Start Date End Date José Luis Roberts MD [address] [place] [address] PCP - General Family Medicine 02/02/24 Miriam Suarez DO [address] [place], [place] [phone] Referring Physician Neurology 06/29/23 Adelaida Carrion NP [address] [place] [address] Nurse Practitioner Family Medicine 01/27/24 Bong Rosado MA Family Medicine 02/12/24 Food Order Expediter Relationship Specialty Start Date End Date José Luis Roberts MD [address] [place] [address] PCP - General Family Medicine 02/02/24 Miriam Suarez DO [address] [place], [place] [address] Referring Physician Neurology 06/29/23 Adelaida Carrion NP [address] [place] [address] Nurse Practitioner Family Medicine 01/27/24 Bong Rosado MA Family Medicine 02/12/24 Food Order Expediter Relationship Specialty Start Date End Date José Luis Roberts MD [address] [place] [address] PCP - General Family Medicine 02/02/24 Miriam Suarez DO [address] [place] [address] Referring Physician Neurology 06/29/23 Adelaida Carrion NP [address] [place] [address] Nurse Practitioner Family Medicine 01/27/24 Bong Rosado MA Family Medicine 02/12/24 Food Order Expediter Relationship Specialty Start Date End Date José Luis Roberts MD [address] [place] [address] PCP - General Family Medicine 02/02/24 Miriam Suarez DO [address] [place] [address] Referring Physician Neurology 06/29/23 Adelaida Carrion NP [address] [place] [address] Nurse Practitioner Family Medicine 01/27/24 Bong Rosado MA Family Medicine 02/12/24 Food Order Expediter Relationship Specialty Start Date End Date José Luis Roberts MD [address] [place] [address] PCP - General Family Medicine 02/02/24 Miriam Suarez DO [address] [place], [place] [address] Referring Physician Neurology 06/29/23 Adelaida Carrion, BRIANA [address] [place] [address] Nurse Practitioner Family Medicine 01/27/24 Bong Rosado MA [facility] Medicine 02/12/24 Food Order Expediter Relationship Specialty Start Date End Date José Luis Roberts MD [address] [place] [address] PCP - General Family Medicine 02/02/24 Miriam Suarez DO [address] [place], [place] [address] Referring Physician Neurology 06/29/23 Adelaida Carrion NP [address] [place] [address] Nurse Practitioner Family Medicine 01/27/24 Bong Rosado MA Family Medicine 02/12/24 Food Order Expediter Relationship Specialty Start Date End Date José Luis Roberts MD [address] [place] [address] PCP - General Family Medicine 02/02/24 Miriam Suarez DO [address] [place], [place] [address] Referring Physician Neurology 06/29/23 Adelaida Carrion NP [address] [place] [address] Nurse Practitioner Family Medicine 01/27/24 Bong Rosado MA Family Medicine 02/12/24 Food Order Expediter Relationship Specialty Start Date End Date José Luis Roberts MD [address] [place] [address] PCP - General Family Medicine 02/02/24 Miriam Suarez DO [address] [place] [address] Referring Physician Neurology 06/29/23 Adelaida Carrion NP [address] [place] [address] Nurse Practitioner Family Medicine 01/27/24 Bong Rosado MA Family Medicine 02/12/24 Food Order Expediter Relationship Specialty Start Date End Date José Luis Roberts MD [address] [place] [address] PCP - General Family Medicine 02/02/24 Miriam Suarez DO [address] [place] [address] Referring Physician Neurology 06/29/23 Adelaida Carrion NP [address] [place] [address] Nurse Practitioner Family Medicine 01/27/24 Bong Rosado MA Family Medicine 02/12/24 Food Order Expediter Relationship Specialty Start Date End Date José Luis Roberts MD [address] [place] [address] PCP - General Family Medicine 05/18/23 Adelaida Carrion NP Referring Physician Nurse Practitioner 10/14/22 Miriam Suarez DO [address] [place], [place] [address] Referring Physician Neurology 06/29/23 Mathew Parra LPN Licensed Practical Nurse Family Medicine 07/23/23 Food Order Expediter Relationship Specialty Start Date End Date José Luis Roberts MD [address] [place] [address] PCP - General Family Medicine 05/18/23 Adelaida Carrion NP Referring Physician Nurse Practitioner 10/14/22 Miriam Suarez DO [address] [place] [address] Referring Physician Neurology 06/29/23 Mathew Parra LPN Licensed Practical Nurse Family Medicine 07/23/23 Food Order Expediter Relationship Specialty Start Date End Date José Luis Roberts MD [address] [place] [address] PCP - General Family Medicine 05/18/23 Adelaida Carrion, BANQUET CAPTAIN Referring Physician Nurse Practitioner 10/14/22 Miriam Suarez DO [address] [place] [address] Referring Physician Neurology 06/29/23 Mathew Parra LPN Licensed Practical Nurse Family Medicine 07/23/23 Food Order Expediter Relationship Specialty Start Date End Date José Luis Roberts MD [address] [place] [address] PCP - General Family Medicine 05/18/23 Adelaida Carrion BANQUET CAPTAIN Referring Physician Nurse Practitioner 10/14/22 Miriam Suarez DO [address] [place] [address] Referring Physician Neurology 06/29/23 Mathew Parra LPN Licensed Practical Nurse Family Medicine 07/23/23 Food Order Expediter Relationship Specialty Start Date End Date José Luis Roberts MD [address] [place] [address] PCP - General Family Medicine 05/18/23 Adelaida Carrion NP Referring Physician Nurse Practitioner 10/14/22 Miriam Suarez DO [address] [place] [address] Referring Physician Neurology 06/29/23 [place] LPN Licensed Practical Nurse Family Medicine 12/18/23 Food Order Expediter Relationship Specialty Start Date End Date José Luis Roberts MD [address] [place] [address] PCP - General Family Medicine 05/18/23 Adelaida Carrion NP Referring Physician Nurse Practitioner 10/14/22 Miriam Suarez DO [address] [place] [address] Referring Physician Neurology 06/29/23 [place] LPN Licensed Practical Nurse Family Medicine 12/18/23 Food Order Expediter Relationship Specialty Start Date End Date José Luis Roberts MD [address] [place] [address] PCP - General Family Medicine 05/18/23 Adelaida Carrion NP Referring Physician Nurse Practitioner 10/14/22 Miriam Suarez DO [address] [place] [address] Referring Physician Neurology 06/29/23 [place] LPN Licensed Practical Nurse Family Medicine 12/18/23 Food Order Expediter Relationship Specialty Start Date End Date José Luis Roberts MD [address] [place] [address] PCP - General Family Medicine 02/02/24 Miriam Suarez DO [address] [place] [address] Referring Physician Neurology 06/29/23 Adelaida Carrion, BRIANA [address] [place] [address] Nurse Practitioner Family Medicine 01/27/24 Bong Rosado MA Family Medicine 02/12/24 Food Order Expediter Relationship Specialty Start Date End Date José Luis Roberts MD [address] [place] [address] PCP - General Family Medicine 02/02/24 Miriam Suarez DO [address] [place], [place] [address] Referring Physician Neurology 06/29/23 Adelaida Carrion, BRIANA [address] [place] [address] Nurse Practitioner Family Medicine 01/27/24 Bong Rosado MA Family Medicine 02/12/24 Food Order Expediter Relationship Specialty Start Date End Date José Luis Roberts MD [address] [place] [address] PCP - General Family Medicine 02/02/24 Miriam Suarez DO [address] [place], [place] [address] Referring Physician Neurology 06/29/23 Adelaida Carrion NP [address] [place] [address] Nurse Practitioner Family Medicine 01/27/24 Bong Rosado MA Family Medicine 02/12/24 Food Order Expediter Relationship Specialty Start Date End Date José Luis Roberts MD [address] [place] [address] PCP - General Family Medicine 02/02/24 Miriam Suarez DO [address] [place] [address] Referring Physician Neurology 06/29/23 Adelaida Carrion NP [address] [place] [address] Nurse Practitioner Family Medicine 01/27/24 Bong Rosado MA Family Medicine 02/12/24 Food Order Expediter Relationship Specialty Start Date End Date José Luis Roberts MD [address] [place] [address] PCP - General Family Medicine 02/02/24 Miriam Suarez DO [address] [place] [address] Referring Physician Neurology 06/29/23 Adelaida Carrion NP [address] [place] [address] Nurse Practitioner Family Medicine 01/27/24 Bong Rosado MA Family Medicine 02/12/24 Food Order Expediter Relationship Specialty Start Date End Date José Luis Roberts MD [address] [place] [address] PCP - General Family Medicine 02/02/24 iMriam Suarez DO [address] [place] [address] Referring Physician Neurology 06/29/23 Adelaida Carrion NP [address] [place] [address] Nurse Practitioner Family Medicine 01/27/24 Bong [...] BE BASED ON THE PRIMARY CLINICAL RECORDS. [employer] provides no warranty or guarantee of the accuracy or completeness of information in this document.
[2024-07-18 07:03] VITALS: BP 125/79; PULSE 60; TEMP 36.6; O2SAT 98
[2024-07-18 07:47] VITALS: BP 123/87; BP 141/71; PULSE 61; PULSE 64; O2SAT 96
[2024-07-18] MEDS: LIDOCAINE HCL 2% 400 MG/20 ML MDV INJ (07:49)
[2024-07-18] MEDS: METHYLPREDNISOLONE ACETATE 40 MG/ML VIAL INJ (07:49)
[2024-07-18] MEDS: BUPIVACAINE HCL 0.25% PF 25 MG/10 ML VIAL INJ (07:49)
--- NOTE | 2024-07-18 07:51 | W.PM.PROCNOT ---
Date of procedure: 07/18/24 Pre-op diagnosis: Right shoulder pain Post-op diagnosis: same as pre-op Procedure: Procedure: Right suprascapular and axillary nerve block Medications: Bupivacaine 0.25% 3cc, depomedrol 40mg The patient was seen and examined in the preoperative holding area. Informed consent was obtained and placed on the chart.? The patient was brought to the medical procedure unit and placed in the prone position. A timeout was completed verifying correct patient, procedure site, positioning, plan, and special equipment.? Using aseptic technique, under direct fluoroscopic visualization, a 25-gauge 3-1/2 inch spinal needle was advanced to the superior portion of the right posterior osseous rim of the glenoid fossa, lateral and superior to the spinal glenoid notch.? 0.5 cc of the above solution was injected.? The needle was then redirected 3 mm inferiorly and another 0.5 cc of the above medication was injected.? This needle was then removed.? Using aseptic technique, under direct fluoroscopic visualization, another 25-gauge 3-1/2 inch spinal needle was advanced toward the most inferior and lateral border of the greater tubercle.? 0.5 cc of the above medication was administered.? The needle was then redirected 3 mm inferiorly.? 0.5 cc was administered in this region.? This needle was removed. ? The patient was taken to the postprocedural recovery area and monitored for an appropriate length of time before being found suitable for discharge in the accompaniment of a responsible adult. Anesthesia: Local Surgeon: Syeda Mancuso Pathology: none sent Condition: stable Disposition: no change
== END 2024-07-18 07:59 | disposition home or self-care (01) ==
LOC: SURGOUT 06:28
PROVIDERS: PCP Nurse Practitioner; Visit Provider Anesthesiology
DX: M25.511 Pain in right shoulder (principal)
CPT/HCPCS: 64417; 64418; J0665; J1010

== ENCOUNTER 2024-07-24 06:49 | Emergency (ER) | payer MEDICARE, SELFPAY ==
[2024-07-24 06:56] VITALS: BP 123/73; PULSE 70; O2SAT 96; BMI 48.9
--- OUTSIDE RECORDS SUMMARY | 2024-07-24 06:56 | XMS_ITS | CCD ---
Author Organization [facility] Care Team Providers Care Blocklayer Name Role Phone ROSIERAHEIM, SUKI Admitting Unavailable EBRAHEIM, SUKI Attending Unavailable AICHHOLZ, ADELAIDA Referring Unavailable AICHHOLZ, ADELAIDA Primary Care Unavailable [place] Procedure Practitioner Unavailab SUKI Jacob Surgeon Unavailable [place] Procedure Practitioner Unavailab CHAPARRITA Goncalves Surgeon Unavailable BRIDGETTE MACEDO Admitting Unavailable BRIDGETTE MACEDO Attending Unavailable AICHHOLZ, LIFE SCIENCES MANAGER ADELAIDA Primary Care Unavailable NIXON ., DR FINA Iverson Admitting Unavailable NIXON ., DR FINA Iverson Attending Unavailable AICHHOLZ, LIFE SCIENCES MANAGER ADELAIDA Primary Care Unavailable MCDANIEL ., ZELDA Consulting Unavailable LAKSHMIPATHY ., NARENDRANATH Consulting Paula vailable LAKSHMIPATHY ., NARENDRANATH Admitting Paula vailable LAKSHMIPATHY ., NARENDRANATH Attending Paula vailable AICHHOLZ, LIFE SCIENCES MANAGER ADELAIDA Primary Care Unavailable LAKSHMIPATHY ., NARENDRANATH Consulting Paula vailable AICHHOLZ, LIFE SCIENCES MANAGER ADELAIDA Primary Care Unavailable MARKER ., DR CHAUDHRY Admitting Unavailable MARKER ., DR CHAUDHRY Attending Unavailable MARKER ., DR CHAUDHRY Consulting Unavailable AICHHOLZ, LIFE SCIENCES MANAGER ADELAIDA Admitting Unavailable AICHHOLZ, LIFE SCIENCES MANAGER ADELAIDA Attending Unavailable AICHHOLZ, LIFE SCIENCES MANAGER ADELAIDA Primary Care Unavailable NIXON ., DR FINA Iverson Admitting Unavailable NIXON ., DR FINA Iverson Attending Unavailable AICHHOLZ, LIFE SCIENCES MANAGER ADELAIDA Primary Care Unavailable MCDANIEL ., ZELDA Consulting Unavailable NIXON ., DR FINA Iverson Admitting Unavailable NIXON ., DR FINA Iverson Attending Unavailable AICHHOLZ, LIFE SCIENCES MANAGER ADELAIDA Primary Care Unavailable MCDANIEL ., ZELDA Consulting Unavailable AICHHOLZ, LIFE SCIENCES MANAGER ADELAIDA Admitting Unavailable AICHHOLZ, LIFE SCIENCES MANAGER ADELAIDA Attending Unavailable AICHHOLZ, LIFE SCIENCES MANAGER ADELAIDA Primary Care Unavailable AICHHOLZ, LIFE SCIENCES MANAGER ADELAIDA Consulting Unavailable AICHHOLZ, LIFE SCIENCES MANAGER ADELAIDA Admitting Unavailable AICHHOLZ, LIFE SCIENCES MANAGER ADELAIDA Attending Unavailable AICHOLZ, LIFE SCIENCES MANAGER ADELAIDA Primary Care Unavailable AICHHOLZ, LIFE SCIENCES MANAGER ADELAIDA Consulting Unavailable MISC, DR COTE Admitting Unavailable MISC, DR COTE Attending Unavailable AICHOLZ, LIFE SCIENCES MANAGER ADELAIDA Primary Care Unavailable AICHHOLZ, LIFE SCIENCES MANAGER ADELAIDA Consulting Unavailable PRITESHC, DR COTE Consulting Unavailable STARR, DR KINGSLEY Atkins Consulting Unavailable NIXON ., DR FINA Iverson Admitting Unavailable NIXON ., DR FINA Iverson Attending Unavailable AICHOLZ, [facility] ADELAIDA Primary Care Unavailable MCDANIEL ., ZELDA Consulting Unavailable NIXON ., DR FINA Iverson Admitting Unavailable NIXON ., DR FINA Iverson Attending [facility]available [facility] Primary Care Unavailable NIXON ., DR FINA Iverson Consulting Unavailable OMID LAY Consulting Unavailable NIXON ., DR FINA Iverson Admitting Unavailable NIXON ., DR FINA Iverson Attending [facility]available [facility], [facility] ADELAIDA Primary Care Unavailable MCDANIEL ., ZELDA Consulting Unavailable AICHOLZ, [facility] ADELAIDA Primary Care Unavailable HALKER ., ARIAN Admitting Unavailable HALKER ., ARIAN Attending Unavailable LAKSHMIPATHY ., NARENDRANATH Consulting Paula vailable HALKER ., ARIAN Consulting Unavailable LAKSHMIPATHY ., NARENDRANATH Admitting Paula vailable LAKSHMIPATHY ., NARENDRANATH Attending Paula vailable [facility], [facility] ADELAIDA Primary Care Unavailable LAKSHMIPATHY ., NARENDRANATH Consulting Paula vailable AICHOLZ, LIFE SCIENCES MANAGER ADELAIDA Admitting Unavailable AICHHOLZ, LIFE SCIENCES MANAGER ADELAIDA Attending Unavailable AICHOLZ, LIFE SCIENCES MANAGER ADELAIDA Primary Care Unavailable AICHHOLZ, LIFE SCIENCES MANAGER ADELAIDA Consulting Unavailable BRIDGETTE MACEDO Admitting Unavailable BRIDGETTE MACEDO Attending Unavailable AICHHOLZ, LIFE SCIENCES MANAGER ADELAIDA Primary Care Unavailable DR KINGSLEY CLEMENTS Consulting Unavailable BRIDGETTE MACEDO Consulting Unavailable GILMER NEVES Admitting Unavailable GILMER NEVES Attending Unavailable PURA, GILMER Consulting Unavailable AICHOLZ, LIFE SCIENCES MANAGER ADELAIDA Primary Care Unavailable AICHHOLZ, LIFE SCIENCES MANAGER ADELAIDA Primary Care Unavailable DR WILLI RINALDI Admitting Unavailable DEEJAY, DR WILLI Atkins Attending Unavailable DR WILLI RINALDI Consulting Unavailable AICHHOLZ, LIFE SCIENCES MANAGER ADELAIDA Primary Care Unavailable ALMAZ ., DANNY Admitting Unavailable ALMAZ ., DANNY Attending Unavailable DR KINGSLEY CLEMENTS Consulting Unavailable ALMAZ ., DANNY Consulting Unavailable LAKSHMIPATHY ., NARENDRANATH Admitting Paula vailable LAKSHMIPATHY ., NARENDRANATH Attending Paula vailable AICHHOLZ, LIFE SCIENCES MANAGER ADELAIDA Primary Care Unavailable AICHHOLZ, LIFE SCIENCES MANAGER ADELAIDA Admitting Unavailable AICHHOLZ, LIFE SCIENCES MANAGER ADELAIDA Attending Unavailable AICHHOLZ, LIFE SCIENCES MANAGER ADELAIDA Primary Care Unavailable AICHHOLZ, LIFE SCIENCES MANAGER ADELAIDA Admitting Unavailable AICHHOLZ, LIFE SCIENCES MANAGER ADELAIDA Attending Unavailable AICHHOLZ, LIFE SCIENCES MANAGER ADELAIDA Primary Care Unavailable AICHHOLZ, LIFE SCIENCES MANAGER ADELAIDA Consulting Unavailable DR KINGSLEY CLEMENTS Consulting Unavailable HALKER ., ARIAN Admitting Unavailable HALKER ., ARIAN Attending Unavailable AICHHOLZ, LIFE SCIENCES MANAGER ADELAIDA Primary Care Unavailable Aichholz, Adelaida J Primary Care Provider [phone] MD Gaudencio Monk Admit Provider MD Gaudencio Monk Attending Provider JOHANN Vieira Other Provider Unavailable JOHANN Pina Other Provider Unavailable JOHANN Hurtado Other Provider Unavailable JOHANN Crooks Other Provider Unavailable JOHANN Mejias Other Provider Unavailable JOHANN Kim Other Provider Unavailable MD Walker Pringle Other Provider ROSS Marsh Other Provider DO Jessica Murillo Other Provider [phone] MD Obdulio Bragg Other Provider DO Joon Cristina Other Provider [phone] MD Torin Robert Other Provider MD Dawn Barrera Other Provider Karlene ANP-BC Mari Other Provider MD Sofi Almanzar Other Provider [phone] MD Sharad Gallegos Other Provider MD [...] Provider MD Jace Graham Attending Provider Sheyla FOOD PRODUCTS TESTER, Adelaida Unavailable José Luis Roberts MD Primary Care Provider Aichholz FOOD PRODUCTS TESTER, Adelaida Unavailable Daniela GRAHAM, Miriam Unavailable Moises CAMPBELL, Diana Unavailable Unavailable Unallocated , Familias Provider Primary Care Yadirai kellee Aichbob FOOD PRODUCTS TESTER, Adelaida Unavailable José Luis Roberts MD Primary Care Provider [phone] Bong Rosado MA Unavailable Unavailable Aida CAMPBELL, [...] adverse reactions (disorder) 04-06-19 14 rash [facility] Repository (3 sources) levETIRAcetam; Translations: [KEPPRA] Drug Allergy 07-02-19 19 [facility] Repository (3 sources) milnacipran; Translations: [SAVELLA] Drug Allergy 03-14-20 13 [facility] Repository (1 source) Penicillin; Translations: [PENICILLIN] Drug Allergy 01-16-20 18 [facility] Repository (5 sources) Prochlorperazin e; Translations: [COMPAZINE] Drug Allergy 03-14-20 13 agitation [facility] Repository (20 sources) Tetracycline; Translations: [TETRACYCLINE] Drug Allergy 04-06-19 13 Hives, Unknown [facility] Repository (4 sources) Penicillins Drug allergy (disorder) 04-06-19 13 Unknown Reaction [facility] Repository (20 sources) levETIRAcetam; Translations: [levetiracetam] Drug Allergy 12-13-19 22 Hallucinations , Other [place] (20 sources) milnacipran; Translations: [milnacipran] Drug Allergy 12-13-19 22 hives, Hallucinations , Other, Unknown [place] (20 sources) Prochlorperazin e; Translations: [prochlorperazi ne] Drug Allergy 12-13-19 22 Unknown, Other [place] (2 sources) Penicillin G Drug Allergy as a child [facility] Other (2 sources) Tetracaine Drug Allergy Unknown [facility] Other (20 sources) Penicillins Drug Intolerance 12-13-19 22 Anaphylaxis [facility] (20 sources) Other Propensity to adverse reactions 12-13-19 22 Other [facility] (20 sources) Wound Dressing Adhesive Drug Allergy 09-20-19 23 Rash, Unknown [facility] (20 sources) Eszopiclone Drug Allergy 09-21-19 24 Hallucinations , Anaphylaxis [facility] (1 source) Penicillin Drug Allergy 03-02-20 [place] [facility] (1 source) Penicillins Drug allergy (disorder) 03-02-20 [place] [facility] (1 source) Tetracaine Drug Allergy 03-02-20 [place] Repository Medications Current Medications Medication Drug Class(es) [...] sources) Magnesium 400 MG capsule Pt taking OTC([place]) Active Magnesium 400 MG capsule magnesium 0 [...] e Melatonin 12 MG tablet Indications: from [employer] Take 1 tablet by mouth at bedtime [...] s-Minerals (BARIATRIC MULTIVITAMINS/IRON PO) Pt taking OTC ([employer]) Active Multiple Vitamin s-Minerals (BARIATRIC MULTIVITAMINS/IRON PO) Bariatric Multivitamins/Iron 0 Active Dnanejqdxumt-Dnc-Ippo-Fa-Vit K (Bariatric Multivitamins) 45 mg iron- 800 mcg-120 mcg Capsule (2 sources) Start: 11-17-2022 take 1 capsule by mouth once daily Aefnclledgvw-Yyu-Sere-Fa-Vit K (Bariatric Multivitamins) 45 mg iron- 800 mcg-120 mcg Capsule Active 1 CAP PO Daily November 16, 2022 11:00pm Start: 11-17-2022 take 1 capsule by mo [facility] once daily Tabfcoeojzyc-Rxm-Ntsm-Fa-Vit K (Bariatri c Multivitamins) 45 mg iron- 800 mcg-120 mcg Capsule Active 1 CAP PO Daily November 17, 2022 12:00am nystatin 721117 unt/ml topical cream (20 sources) Polyene Antifungal Start: 03-07-2024 nystatin (M ycostatin) cream 03/07/2024 Active nystatin (Mycost atin) [id number] UNIT/GM powder Apply 1 application topically in [...] 05-18-2023 Episodic Other aftercare (1 source) 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) drug therapy; Translations: [OTH INTERMEDIATE CURRENT DRUG THERAPY] Onset: 04-29-2022 Episodic Other [...] (Bld) [#/Vol] 0.0 10*3/uL Normal 0.0-0.2 [facility] Comment on above: Result Comment: PERF ORMED BY: [place] [address] PATHOLOGIST SOFTWARE INTERN ADIEL AGUSTIN M.D. Performed By: #### C MG ANAMARIA, CMP #### [address] Basophils/100 WBC (Bld) 0.5 % Normal . [facility] Comment on above: Performed By: #### C MG ANAMARIA, CMP #### [place] [id number] [place] Eosinophils (Bld) [#/Vol] 0.2 10*3/uL Normal 0.0-0.45 [facility] Comment on above: Performed By: #### C BC, MG, CMP #### [address] Eosinophils/100 WBC (Bld) 2.2 % Normal . [facility] Comment on above: Performed By: #### C BC, MG, CMP #### [address] Erythrocyte distribution width (RBC) [Ratio] 14.5 % Normal 11.9-15.3 [facility] Comment on above: Performed By: #### C BC, MG, CMP #### [address] Hematocrit (Bld) [Volume fraction] 43.0 % Normal 34.0-46.4 [facility] Comment on above: Performed By: #### C BC, MG, CMP #### [address] Hemoglobin (Bld) [Mass/Vol] 14.3 g/dL Normal 11.8-15.4 [facility] Comment on above: Performed By: #### C BC, MG, CMP #### [address] Lymphocytes (Bld) [#/Vol] 1.8 10*3/uL Normal 1.00-4.8 [facility] Comment on above: Performed By: #### C BC, MG, CMP #### [address] Lymphocytes/100 WBC (Bld) 18.9 % Normal . [facility] Comment on above: Performed By: #### C BC, MG, CMP #### [address] MCH (RBC) [Entitic mass] 29.0 pg Normal 24.7-34.3 [facility] Comment on above: Performed By: #### C BC, MG, CMP #### [address] MCV (RBC) [Entitic vol] 87.0 fL Normal 80-100 [facility] Comment on above: Performed By: #### C BC MG, CMP #### [address] Mean Corpuscular HGB Conc 33.4 g/dL Normal 32.0-35.0 [facility] Comment on above: Performed By: #### C BC, MG, CMP #### [address] Monocytes (Bld) [#/Vol] 0.5 10*3/uL Normal 0.0-0.8 [facility] Comment on above: Performed By: #### C BC MG, CMP #### [address] Monocytes/100 WBC (Bld) 5.5 % Normal . [facility] Comment on above: Performed By: #### C BC MG, CMP #### [address] Neutrophils (Bld) [#/Vol] 7.0 10*3/uL Normal 1.8-7.7 [facility] Comment on above: Performed By: #### C BC, MG, CMP #### [address] Neutrophils/100 WBC (Bld) 72.9 % Normal . [facility] Comment on above: Performed By: #### C BC, MG, CMP #### [address] NRBC% 0.0 /100{WBC} Normal 0-0.5 The [facility] Comment on above: Performed By: #### C BC, MG, CMP #### [address] Platelet mean volume (Bld) [Entitic vol] 8.9 fL Normal 6.3-10.7 The [facility] Comment on above: Performed By: #### C BC, MG, CMP #### [address] Platelets (Bld) [#/Vol] 289 10*3/uL Normal 150-450 [facility] Comment on above: Performed By: #### C BC, MG, CMP #### [address] RBC (Bld) [#/Vol] 4.94 10*6/uL Normal 3.60-5.00 The [facility] Comment on above: Performed By: #### C BC, MG, CMP #### [address] WBC (Bld) [#/Vol] 9.6 10*3/uL Normal 3.8-11.6 The [facility] Comment on above: Performed By: #### C BC, MG, CMP #### [address] Comprehensive Metabolic Pane [place] 03-05-2024 Albumin [Mass/Vol] 4.4 g/dL Normal 3.5-5.7 The [facility] Comment on above: Performed By: #### C BC, MG, CMP #### [address] Albumin/Globulin [Mass ratio] 1.3 {ratio} Normal [facility] Comment on above: Performed By: #### C BC, MG, CMP #### [address] ALP [Catalytic activity/Vol] 79 U/L Normal 34-104 [facility] Comment on above: Performed By: #### C BC, MG, CMP #### [address] ALT [Catalytic activity/Vol] 23 U/L Normal 7-52 [facility] Comment on above: Performed By: #### C BC, MG, CMP #### [address] Anion gap [Moles/Vol] 15.4 mmol/L High 6.0-15.0 Th e [facility] Comment on above: Performed By: #### C BC, MG, CMP #### [facility] [address] [place] [address] [place] AST [Catalytic activity/Vol] 36 U/L Normal 13-39 [facility] Comment on above: Performed By: #### C BC, MG, CMP #### [facility] [address] [place] [address] [place] Bilirubin [Mass/Vol] 0.4 mg/dL Normal 0.3-1.0 [facility] Comment on above: Performed By: #### C BC, MG, CMP #### [facility] [address] [place] [address] [place] Calcium [Mass/Vol] 9.5 mg/dL Normal 8.6-10.3 The [facility] Comment on above: Performed By: #### C BC, MG, CMP #### [facility] [address] [place] [address] [place] Chloride [Moles/Vol] 106 mmol/L Normal 98-107 [facility] Comment on above: Performed By: #### C BC, MG, CMP #### [facility] [address] [place] [address] [place] CO2 [Moles/Vol] 23.1 mmol/L Normal 21.0-31.0 The [facility] Comment on above: Performed By: #### C BC, MG, CMP #### [facility] [address] [place] [address] [place] Creatinine [Mass/Vol] 0.96 mg/dL Normal 0.60-1.20 The [facility] Comment on above: Performed By: #### C BC, MG, CMP #### [facility] [address] [place] [address] [place] Creatinine Clr Calc Pharmacy 84.51 Normal The [facility] Comment on above: Performed By: #### C BC, MG, CMP #### [facility] [address] [place] [address] [place] GFR/1.73 sq M.predicted MDRD (S/P/Bld) [Vol rate/Area] mL/min/{1.73_m2} Normal [facility] Comment on above: Performed By: #### C BC, MG, CMP #### [facility] [address] Globulin (S) [Mass/Vol] 3.3 g/dL Normal The [facility] Comment on above: Performed By: #### C BC, MG, CMP #### [facility] [address] Glucose [Mass/Vol] 133 mg/dL High 70-100 The [facility] Comment on above: Result Comment: [facility] Glucose Reference Range is dependent on time and content of last meal. Glucose of more than 200 mg/dL in a nonstressed, ambulatory subject supports the diagnosis of Diabetes Mellitus. ADA recommended reference range Performed By: #### C BC, MG, CMP #### [facility] [address] Potassium [Moles/Vol] 3.5 mmol/L Normal 3.5-5.1 The [facility] Comment on above: Performed By: #### C BC, MG, CMP #### [facility] [address] Protein [Mass/Vol] 7.7 g/dL Normal 6.4-8.9 The [facility] Comment on above: Performed By: #### C BC, MG, CMP #### [address] Sodium [Moles/Vol] 141 mmol/L Normal 136-145 The [facility] Comment on above: Performed By: #### C BC, MG, CMP #### [facility] [address] Urea nitrogen [Mass/Vol] 18 mg/dL Normal 7-25 The [facility] Comment on above: Performed By: #### C BC, MG, CMP #### [address] Magnesiumon 03-05-2024 Magnesium [Mass/Vol] 2.0 mg/dL Normal 1.9-2.7 [facility] Comment on above: Result Comment: PERF ORMED BY: [place] [address] PATHOLOGIST SOFTWARE INTERN ADIEL AGUSTIN M.D. Performed By: #### C BC, MG, CMP #### [address] Complete Blood Count Auto Di ffon 03-04-2024 Basophils (Bld) [#/Vol] 0.1 10*3/uL Normal 0.0-0.2 [facility] Comment on above: Result Comment: PERF ORMED BY: [place] [address] PATHOLOGIST SOFTWARE INTERN ADIEL AGUSTIN M.D. Performed By: #### C MP, MG, CBC #### [address] Basophils/100 WBC (Bld) 0.6 % Normal . [facility] Comment on above: Performed By: #### C MP, MG, CBC #### [address] Eosinophils (Bld) [#/Vol] 0.2 10*3/uL Normal 0.0-0.45 The [facility] Comment on above: Performed By: #### C MP, MG, CBC #### [address] Eosinophils/100 WBC (Bld) 1.9 % Normal . [facility] Comment on above: Performed By: #### C MP, MG, CBC #### [address] Erythrocyte distribution width (RBC) [Ratio] 14.6 % Normal 11.9-15.3 The [facility] Comment on above: Performed By: #### C MP, MG, CBC #### [address] Hematocrit (Bld) [Volume fraction] 43.5 % Normal 34.0-46.4 [facility] Comment on above: Performed By: #### C MP, MG, CBC #### [address] Hemoglobin (Bld) [Mass/Vol] 14.4 g/dL Normal 11.8-15.4 The [facility] Comment on above: Performed By: #### C MP, MG, CBC #### [address] Lymphocytes (Bld) [#/Vol] 1.8 10*3/uL Normal 1.00-4.8 The [facility] Comment on above: Performed By: #### C MP, MG, CBC #### [address] Lymphocytes/100 WBC (Bld) 18.0 % Normal . [facility] Comment on above: Performed By: #### C MP, MG, CBC #### [address] MCH (RBC) [Entitic mass] 28.8 pg Normal 24.7-34.3 The [facility] Comment on above: Performed By: #### C MP, MG, CBC #### [address] MCV (RBC) [Entitic vol] 87.0 fL Normal 80-100 The [facility] Comment on above: Performed By: #### C MP, MG, CBC #### [address] Mean Corpuscular HGB Conc 33.2 g/dL Normal 32.0-35.0 The [facility] Comment on above: Performed By: #### C MP, MG, CBC #### [address] Monocytes (Bld) [#/Vol] 0.8 10*3/uL Normal 0.0-0.8 The [facility] Comment on above: Performed By: #### C MP, MG, CBC #### [address] Monocytes/100 WBC (Bld) 8.2 % Normal . [facility] Comment on above: Performed By: #### C MP, MG, CBC #### [facility] [address] Neutrophils (Bld) [#/Vol] 7.3 10*3/uL Normal 1.8-7.7 [facility] Comment on above: Performed By: #### C MP, MG, CBC #### [facility] [address] Neutrophils/100 WBC (Bld) 71.3 % Normal . [facility] Comment on above: Performed By: #### C MP, MG, CBC #### [facility] [address] NRBC% 0.1 /100{WBC} Normal 0-0.5 The [facility] Comment on above: Performed By: #### C MP, MG, CBC #### [address] Platelet mean volume (Bld) [Entitic vol] 8.8 fL Normal 6.3-10.7 The [facility] Comment on above: Performed By: #### C MP, MG, CBC #### [facility] [address] [place] [address] [place] Platelets (Bld) [#/Vol] 334 10*3/uL Normal 150-450 The [facility] Comment on above: Performed By: #### C MP, MG, CBC #### [address] RBC (Bld) [#/Vol] 5.01 10*6/uL High 3.60-5.00 The [facility] Comment on above: Performed By: #### C MP, MG, CBC #### [facility] [address] [place] [address] [place] WBC (Bld) [#/Vol] 10.3 10*3/uL Normal 3.8-11.6 The [facility] Comment on above: Performed By: #### C MP, MG, CBC #### [address] Comprehensive Metabolic Pane [place] 03-04-2024 Albumin [Mass/Vol] 4.5 g/dL Normal 3.5-5.7 The [facility] Comment on above: Performed By: #### C MP, MG, CBC #### [address] Albumin/Globulin [Mass ratio] 1.4 {ratio} Normal The [facility] Comment on above: Performed By: #### C MP, MG, CBC #### [facility] [address] ALP [Catalytic activity/Vol] 79 U/L Normal 34-104 [facility] Comment on above: Performed By: #### C MP, MG, CBC #### [address] ALT [Catalytic activity/Vol] 19 U/L Normal 7-52 [facility] Comment on above: Performed By: #### C MP, MG, CBC #### [address] Anion gap [Moles/Vol] 11.4 mmol/L Normal 6.0-15.0 [facility] Comment on above: Performed By: #### C MP, MG, CBC #### [address] AST [Catalytic activity/Vol] 37 U/L Normal 13-39 [facility] Comment on above: Performed By: #### C MP, MG, CBC #### [place] [address] [place] Bilirubin [Mass/Vol] 0.5 mg/dL Normal 0.3-1.0 The [facility] Comment on above: Performed By: #### C MP, MG, CBC #### [facility] [address] [place] [address] [place] Calcium [Mass/Vol] 9.6 mg/dL Normal 8.6-10.3 The [facility] Comment on above: Performed By: #### C MP, MG, CBC #### [place] [address] [place] Chloride [Moles/Vol] 107 mmol/L Normal 98-107 The [facility] Comment on above: Performed By: #### C MP, MG, CBC #### [facility] [address] CO2 [Moles/Vol] 27.4 mmol/L Normal 21.0-31.0 The [facility] Comment on above: Performed By: #### C MP, MG, CBC #### [address] Creatinine [Mass/Vol] 0.91 mg/dL Normal 0.60-1.20 The [facility] Comment on above: Performed By: #### C MP, MG, CBC #### [address] Creatinine Clr Calc Pharmacy 90.12 Normal [facility] Comment on above: Performed By: #### C MP, MG, CBC #### [place] [address] [place] GFR/1.73 sq M.predicted MDRD (S/P/Bld) [Vol rate/Area] mL/min/{1.73_m2} Normal [facility] Comment on above: Performed By: #### C MP, MG, CBC #### [address] Globulin (S) [Mass/Vol] 3.2 g/dL Normal [facility] Comment on above: Performed By: #### C MP, MG, CBC #### [address] Glucose [Mass/Vol] 100 mg/dL Normal 70-100 The [facility] Comment on above: Result Comment: [place] Glucose Reference Range is dependent on time and content of last meal. Glucose of more than 200 mg/dL in a nonstressed, ambulatory subject supports the diagnosis of Diabetes Mellitus. ADA recommended reference range Performed By: #### C MP, MG, CBC #### [address] Potassium [Moles/Vol] 3.8 mmol/L Normal 3.5-5.1 [facility] Comment on above: Performed By: #### C MP, MG, CBC #### [facility] [address] Protein [Mass/Vol] 7.7 g/dL Normal 6.4-8.9 The [facility] Comment on above: Performed By: #### C MP, MG, CBC #### [facility] [address] Sodium [Moles/Vol] 142 mmol/L Normal 136-145 The [facility] Comment on above: Performed By: #### C MP, MG, CBC #### [facility] [address] Urea nitrogen [Mass/Vol] 15 mg/dL Normal 7-25 The [facility] Comment on above: Performed By: #### C MP, MG, CBC #### [address] MR head/brain wo/w conon MR head/brain wo/w con [facility] Main [place] [address] [place] [address] MRI Report Signed Patient: Michelle Be MR#: [id number] : 1960 Acct:[id number] Age/Sex: 63 / F ADM Date: 03/03/24 Loc: Room: [address] [place] [address] Type: ADM IN Attending Dr: Delta Gan [...] Willi Guadalupe M.D.03/04/2024 2:32 PM Dictation Location: [place] [address] Transcribed By: MESHA 03/04/24 1432 Dictated By: Willi Guadalupe II, MD 03/04/24 1424 Signed By: 03/04/24 1432 Normal [facility] Magnesiumon 03-04-2024 Magnesium [Mass/Vol] 2.0 mg/dL Normal 1.9-2.7 The [facility] Comment on above: Result Comment: PERF ORMED BY: [place] [address] PATHOLOGIST SOFTWARE INTERN ADIEL AGUSTIN M.D. Performed By: #### C MP, MG, CBC #### [facility] [address] [place] [address] Complete Blood Count Auto Di ffon 03-03-2024 Basophils (Bld) [#/Vol] 0.1 10*3/uL Normal 0.0-0.2 The [facility] Comment on above: Order Comment: REY PORRAS,KAH,1607 Result Comment: PERF ORMED BY: [place] [address] PATHOLOGIST SOFTWARE INTERN ADIEL AGUSTIN M.D. Performed By: #### C BC, CMP #### [address] Basophils/100 WBC (Bld) 0.6 % Normal . [facility] Comment on above: Order Comment: RIN T O COME TRY,KAH,1607 Performed By: #### C BC, CMP #### [address] Eosinophils (Bld) [#/Vol] 0.1 10*3/uL Normal 0.0-0.45 The [facility] Comment on above: Order Comment: RIN T O COME TRY,KAH,1607 Performed By: #### C BC, CMP #### [address] Eosinophils/100 WBC (Bld) 1.0 % Normal . [facility] Comment on above: Order Comment: RIN T O COME TRY,KAH,1607 Performed By: #### C BC, CMP #### [address] Erythrocyte distribution width (RBC) [Ratio] 14.6 % Normal 11.9-15.3 [facility] Comment on above: Order Comment: RIN T O COME TRY,KAH,1607 Performed By: #### C BC, CMP #### [address] Hematocrit (Bld) [Volume fraction] 42.9 % Normal 34.0-46.4 [facility] Comment on above: Order Comment: RIN T O COME TRY,KAH,1607 Performed By: #### C BC, CMP #### [address] Hemoglobin (Bld) [Mass/Vol] 14.5 g/dL Normal 11.8-15.4 [facility] Comment on above: Order Comment: RIN T O COME TRY,KAH,1607 Performed By: #### C BC, CMP #### [address] Lymphocytes (Bld) [#/Vol] 1.7 10*3/uL Normal 1.00-4.8 [facility] Comment on above: Order Comment: RIN T O COME TRY,KAH,1607 Performed By: #### C BC, CMP #### [address] Lymphocytes/100 WBC (Bld) 15.7 % Normal . [facility] Comment on above: Order Comment: RIN T O COME TRY,KAH,1607 Performed By: #### C BC, CMP #### [address] MCH (RBC) [Entitic mass] 29.1 pg Normal 24.7-34.3 [facility] Comment on above: Order Comment: RIN T O COME TRY,KAH,1607 Performed By: #### C BC, CMP #### [address] MCV (RBC) [Entitic vol] 85.9 fL Normal 80-100 [facility] Comment on above: Order Comment: RIN T O COME TRY,KAH,1607 Performed By: #### C BC, CMP #### [address] Mean Corpuscular HGB Conc 33.8 g/dL Normal 32.0-35.0 [facility] Comment on above: Order Comment: RIN T O COME TRY,KAH,1607 Performed By: #### C BC, CMP #### [address] Monocytes (Bld) [#/Vol] 0.9 10*3/uL High 0.0-0.8 [facility] Comment on above: Order Comment: RIN T O COME TRY,KAH,1607 Performed By: #### C BC, CMP #### [address] Monocytes/100 WBC (Bld) 8.4 % Normal . [facility] Comment on above: Order Comment: RIN T O COME TRY,KAH,1607 Performed By: #### C BC, CMP #### [address] Neutrophils (Bld) [#/Vol] 8.0 10*3/uL High 1.8-7.7 [facility] Comment on above: Order Comment: RIN T O COME TRY,KAH,1607 Performed By: #### C BC, CMP #### [address] Neutrophils/100 WBC (Bld) 74.3 % Normal . [facility] Comment on above: Order Comment: RIN T O COME TRY,KAH,1607 Performed By: #### C BC, CMP #### [address] NRBC% 0.1 /100{WBC} Normal 0-0.5 The [facility] Comment on above: Order Comment: RIN T O COME TRY,KAH,1607 Performed By: #### C BC, CMP #### [address] Platelet mean volume (Bld) [Entitic vol] 8.9 fL Normal 6.3-10.7 The [facility] Comment on above: Order Comment: RIN T O COME TRY,KAH,1607 Performed By: #### C BC, CMP #### [address] Platelets (Bld) [#/Vol] 291 10*3/uL Normal 150-450 [facility] Comment on above: Order Comment: RIN T O COME TRY,KAH,1607 Performed By: #### C BC, CMP #### [address] RBC (Bld) [#/Vol] 4.99 10*6/uL Normal 3.60-5.00 The [facility] Comment on above: Order Comment: RIN T O COME TRY,KAH,1607 Performed By: #### C BC, CMP #### [address] WBC (Bld) [#/Vol] 10.7 10*3/uL Normal 3.8-11.6 The [facility] Comment on above: Order Comment: RIN T O COME TRY,KAH,1607 Performed By: #### C BC, CMP #### [address] Comprehensive Metabolic Pane [place] 03-03-2024 Albumin [Mass/Vol] 4.6 g/dL Normal 3.5-5.7 The [facility] Comment on above: Order Comment: RIN T O COME TRY,KAH,1607 Performed By: #### C BC, CMP #### [facility] [address] Albumin/Globulin [Mass ratio] 1.4 {ratio} Normal [facility] Comment on above: Order Comment: RIN T O COME TRY,KAH,1607 Performed By: #### C BC, CMP #### [facility] [address] [place] [id number] [facility] ALP [Catalytic activity/Vol] 80 U/L Normal 34-104 [facility] Comment on above: Order Comment: RIN T O COME TRY,KAH,1607 Performed By: #### C BC, CMP #### [address] ALT [Catalytic activity/Vol] 16 U/L Normal 7-52 [facility] Comment on above: Order Comment: RIN T O COME TRY,KAH,1607 Performed By: #### C BC, CMP #### [address] Anion gap [Moles/Vol] 13.6 mmol/L Normal 6.0-15.0 [facility] Comment on above: Order Comment: RIN T O COME TRY,KAH,160 Performed By: #### C BC, CMP #### [place] [address] [place] AST [Catalytic activity/Vol] 35 U/L Normal 13-39 [facility] Comment on above: Order Comment: RIN T O COME TRY,KAH,1607 Performed By: #### C BC, CMP #### [place] [address] [place] Bilirubin [Mass/Vol] 0.3 mg/dL Normal 0.3-1.0 [facility] Comment on above: Order Comment: RIN T O COME TRY,KAH,1607 Performed By: #### C BC, CMP #### [address] [place] [address] [place] Calcium [Mass/Vol] 9.3 mg/dL Normal 8.6-10.3 The [facility] Comment on above: Order Comment: RIN T O COME TRY,KAH,1607 Performed By: #### C BC, CMP #### [facility] [address] Chloride [Moles/Vol] 109 mmol/L High 98-107 [facility] Comment on above: Order Comment: RIN T O COME TRY,KAH,1607 Performed By: #### C BC, CMP #### [facility] [address] CO2 [Moles/Vol] 22.4 mmol/L Normal 21.0-31.0 The [facility] Comment on above: Order Comment: RIN T O COME TRY,KAH,1607 Performed By: #### C BC, CMP #### [facility] [address] [place] [id number] [facility] Creatinine [Mass/Vol] 0.93 mg/dL Normal 0.60-1.20 [facility] Comment on above: Order Comment: RIN T O COME TRY,KAH,1607 Performed By: #### C BC, CMP #### [facility] [address] Creatinine Clr Calc Pharmacy 87.94 Normal [facility] Comment on above: Order Comment: RIN T O COME TRY,KAH,1607 Result Comment: PERF ORMED BY: [place] [address] PATHOLOGIST SOFTWARE INTERN ADIEL AGUSTIN M.D. Performed By: #### C BC, CMP #### [address] GFR/1.73 sq M.predicted MDRD (S/P/Bld) [Vol rate/Area] mL/min/{1.73_m2} Normal [facility] Comment on above: Order Comment: RIN T O COME TRY,KAH,1607 Performed By: #### C BC, CMP #### [facility] [address] [place] [address] [place] Globulin (S) [Mass/Vol] 3.2 g/dL Normal [facility] Comment on above: Order Comment: REY Marge O JAK TRY,KAH,1606 Performed By: #### C BC, CMP #### [facility] [address] Glucose [Mass/Vol] 105 mg/dL High 70-100 The [facility] Comment on above: Order Comment: REY T O COME TRY,KAH,1606 Result Comment: [facility] Glucose Reference Range is dependent on time and content of last meal. Glucose of more than 200 mg/dL in a nonstressed, ambulatory subject supports the diagnosis of Diabetes Mellitus. ADA recommended reference range Performed By: #### C BC, CMP #### [facility] [address] Potassium [Moles/Vol] 4.0 mmol/L Normal 3.5-5.1 [facility] Comment on above: Order Comment: REY T O JAK TRY,KAH,1606 Performed By: #### C BC, CMP #### [facility] [address] [place] [address] [place] Protein [Mass/Vol] 7.8 g/dL Normal 6.4-8.9 [facility] Comment on above: Order Comment: REY T O JAK TRY,KAH,1606 Performed By: #### C BC, CMP #### [facility] [address] [place] [id number] [place] Sodium [Moles/Vol] 141 mmol/L Normal 136-145 [facility] Comment on above: Order Comment: REY T O COME TRY,KAH,1606 Performed By: #### C BC, CMP #### [facility] [address] [place] [address] [place] Urea nitrogen [Mass/Vol] 15 mg/dL Normal 7-25 [facility] Comment on above: Order Comment: REY T O JAK TRY,KAH,1606 Performed By: #### C BC, CMP #### [facility] [address] [place] [address] [place] IGP,APTIMA HPV,AGE GDLNon AGE GDLN ACOG TESTING Note . [facility] Comment on above: TESTS RESULT FLAG UN ITS REF RANGE LAB Clinician Provided Cytology Information Source.............Cervix;Endocervix No. of containers..01 ThinPrep Vial Age Algo ACOG Tona... FLAG LEGEND: L-Low Normal,H-High Normal,LL-Alert Low,HH-Alert High <-Panic Low,>-Panic High,A-Abnormal,AA-Critical Abnormal Performed at: 01 =[facility] [address] [address] Farzana Hennessy MD, HPV APTIMA Negative Negative [facility] Comment on above: This nucleic acid am plification test detects fourteen high- risk HPV types (16,18,31,33,35,39,45,51,52,56,58,59,66,68) without differentiation. Performed at: =[facility] [address] [id number] Machinist Bench: Farzana Hennessy MD, Phone: [phone] Performed at: [facility] [address] [address] [place], [place] [id number] Machinist Bench: Scott Sandoval MD, Phone: [phone] IGP, APTIMA HPV, RFX 16/18,45 Note . [facility] Comment on above: TESTS RESULT FLAG U NITS REF RANGE LAB DIAGNOSIS: 02 NEGATIVE FOR INTRAEPITHELIAL LESION OR MALIGNANCY. Specimen adequacy: 02 Satisfactory for evaluation. Endocervical and/or squamous metaplastic cells (endocervical component) are present. Performed by: 02 Adelaida Bustamante, Postal Delivery Officer ([facility]) . 02 Note: Note 03 The [...] High,A-Abnormal,AA-Critical Abnormal Performed at: 02 [facility] [address] [address] [place] [address] Scott Sandoval MD, 03 WB [facility] [address] [address] Farzana Hennessy MD, BROOM-ALONE CERVIX [facility] Urinalysis macro (dipstick) panel (U)on 01-28-2024 Bilirubin, UA Negative Negative - 4(70) +++ mg/dL [facility] Blood, UA Negative Negative - 50 Kranthi/mcL [facility] Clarity, UA Clear [facility] Color, UA Dark Tania [facility] Glucose, UA Negative Negative - 1999(110) ++++ mg/dL [facility] Interpretation and review of laboratory results Abnormal [facility] Ketones, UA Negative Negative - 160(16) ++++ mg/dL [facility] Leukocytes, UA Trace Negative - 500+++ Radha/mcL [facility] Nitrite, UA Negative Negative - Positive [facility] pH, UA 5.5 5 - 9 [facility] Protein, UA Negative Negative - 1999(20) ++++ mg/dL [facility] Spec Grav, UA 1.025 1 - 1.03 [facility] Urobilinogen, UA 0.2 0.2 - 12 mg/dL [facility] MHPT CULT,URINEon 01-23-2024 Interpretation and review of laboratory results [facility] Spec[facility] Description .CLEAN C[facility] Culture ESCHERICHIA COLI >100,000 CFU/ML [facility] STREPTOCOCCI, BETA HEMOLYTIC GROUP B 10 to 50,000 CFU/ML [facility] Report Status FINAL 01/23/2024 [facility] MHPT CULT,URINE SUSCEPTIBILITY [facility] Organism ESCHERICHIA COLI [facility] Method CROW [facility] Ampicillin 16 INTERMEDIATE Intermediate [facility] Cefazolin <=4 SUSCEPTIBLE Susceptible [facility] Cefazolin sensitivit y results can be used to predict the effectiveness of oral Susceptible [facility] MHPT CULT,URINE cephalosporins (eg. Cephalexin) in uncomplicated Urinary Tract Infections due Susceptible [facility] MHPT CULT,URINE to E. coli, K. pneumoniae, and P. mirabilis Susceptible [facility] MHPT CULT,URINE Ceftriaxone <=0.25 SUSCEPTIBLE Susceptible [facility] MHPT CULT,URINE Negative Susceptible [facility] MHPT CULT,URINE Gentamicin <=1 SUSCEPTIBLE Susceptible [facility]PT CULT,URINE Levofloxacin <=0.12 SUSCEPTIBLE Susceptible [facility] Nitrofurantoin <=16 SUSCEPTIBLE Susceptible [facility] Piperacillin/Tazobac ta m <=4 SUSCEPTIBLE Susceptible [facility] MHPT CULT,URINE Tobramycin <=1 SUSCEPTIBLE Susceptible [facility] MHPT CULT,URINE Trimethoprim/Sulfa <=20 SUSCEPTIBLE Susceptible [facility] Original Ordering Provider: RICHA CHAVEZ [facility] ALL BASIC METABOLIC PANELon 01-05-2024 Anion gap [Moles/Vol] 11.1 mmol/L [facility] Calcium [Mass/Vol] 9.2 mg/dL 8.5 - 10. 1 mg/dL [facility] Chloride [Moles/Vol] 105 mmol/L 98 - 10 7 mmol/L [facility] CO2 [Moles/Vol] 28.0 mmol/L 21.0 - 32.0 mmol/L [facility] Creatinine [Mass/Vol] 1.08 mg/dL High 0.55 - 1.02 mg/dL [facility] GFR/1.73 sq M.predicted CKD-EPI (S/P/Bld) [Vol rate/Area] >60 60 - PINF [facility] Glucose [Mass/Vol] 92 mg/dL 74 - 106 mg/dL [facility] Interpretation and review of laboratory results Abnormal [facility] Potassium [Moles/Vol] 4.1 mmol/L 3.5 - 5.1 mmol/L [facility] Sodium [Moles/Vol] 140 mmol/L 136 - 145 mmol/L [facility] TBH EGFR-NON AF BURUNDIAN 51 Low 60 - PINF [facility] Urea nitrogen [Mass/Vol] 17.0 mg/dL 7.0 - 18.0 mg/dL [facility] Urea nitrogen/Creatinine [Mass ratio] 15.7 mg/mg [facility] Amphetamine Screen Ql (U)Ord ered By: Jace Graham on 03-23-2023 Amphetamines Ql (U) Negative Negative [facility] Barbiturates [Presence] in U rine by Screen methodOrdered By: Jace Graham on 03-23-2023 Barbiturates Screen Ql (U) Negative Negative [place] Benzodiazepines Screen Ql (U )Ordered By: Jace Graham on 03-23-2023 Benzodiazepines Ql (U) Negative Negative [facility] Benzoylecgonine [Presence] i n Urine by Screen methodOrdered By: Jace Graham on 03-23-2023 Benzoylecgonine Screen Ql (U) Negative Negative [facility] Cannabinoids [Presence] in U rine by Screen methodOrdered By: Jace Graham on 03-23-2023 Cannabinoids Screen Ql (U) Negative Negative [facility] Comment on above: These are unconfirme d results and should not be used for legal purposes. Drug Cut-Off Concentration: AMPH 1000 ng/mL ELKIN 200 ng/mL ATIYA 200 ng/mL COCM 300 ng/mL OP 300 ng/mL PCP 25 ng/mL THC 20 ng/mL Opiates [Presence] in Urine by Screen methodOrdered By: Jace Graham on 03-23-2023 Opiates Screen Ql (U) Negative Negative [facility] Phencyclidine Screen Ql (U)O rdered By: Jace Graham on 03-23-2023 Phencyclidine Ql (U) Negative Negative [facility] Cholesterol [Mass/volume] in Serum or PlasmaOrdered By: Eduardo Monk on 11-18-2022 Cholesterol [Mass/Vol] 159 mg/dL 140-200 [facility] Comment on above: Chol less than 200 m g/dl low riskChol 201-239 mg/dl borderline riskChol 240 mg/dl and greater high risk Cholesterol in LDL Calc [Mas s/Vol]Ordered By: Eduardo Monk on 11-18-2022 Cholesterol in LDL [Mass/Vol] 84 mg/dL 0-100 [facility] Comment on above: LDL ATP III CLASSIFI CATIONLDL less than 100 mg/dL OptimalLDL 100-129 mg/dL Near or above optimalLDL 130-159 mg/dL Borderline highLDL 160-189 mg/dL HighLDL greater than 189 mg/dL Very high Cholesterol in VLDL Calc [Ma ss/Vol]Ordered By: Eduardo Monk on 11-18-2022 Cholesterol in VLDL [Mass/Vol] 28 mg/dL [facility] Serum or plasma high density lipoprotein (HDL) cholesterol measurementOrdered By: Eduardo Monk on 11-18-2022 Cholesterol in HDL [Mass/Vol] 46 mg/dL 23-92 [facility] Comment on above: HDL CHOL ATP-III CLA SSIFICATION Cardiovascular RiskHDL > or equal to 60 mg/dL LOWHDL < 40 mg/dL HIGH Serum or plasma total choles terol/high density lipoprotein (HDL) cholesterol mass ratOrdered By: Eduardo Monk on 11-18-2022 Cholesterol.total/Chol esterol in HDL [Mass ratio] 3.5 {ratio} <5.0 [facility] Thyrotropin [Units/volume] i n Serum or PlasmaOrdered By: Eduardo Monk on 11-18-2022 TSH Qn 2.13 m[IU]/L 0.45-5.33 [place] Triglyceride [Mass/volume] i n Serum or PlasmaOrdered By: Eduardo Monk on 11-18-2022 Triglyceride [Mass/Vol] 144 mg/dL 0-149 [facility] Comment on above: TRIG ATP III CLASSIF ICATIONTRIG less than 150 mg/dL NormalTRIG 150-199 mg/dL Borderline highTRIG 200-500 mg/dL High TRIG greater than 500 mg/dL Very highStandard traceable to the Center for Disease Conrtrol and Prevention (CDC) test method. Vitamin D+Metabolites [Mass/ volume] in Serum or PlasmaOrdered By: Eduardo Monk on 11-18-2022 Vitamin D+Metabolites [Mass/Vol] 50.4 ng/mL 30-100 [place] Comment on above: VITAMIN D STATUS 25( [place])VITAMIN D RANGE (ng/mL) Deficient <20 Insufficient 20 to <30Sufficient 30 to 100Reference: Bin MF,Lakshmi NC, Cristian SMART, et al. Evaluation,treatment, and prevention of vitamin D deficiency; an Endocrine Society clinical practice guideline. JCEM. 2010; 96(7):1911-30. CBC AUTO DIFFon 07-25-2022 BASO # 0.1 103/ul Normal 0.0-0.1 [facility] Comment on above: Performed By: #### A 1C #### [facility] [address] [address] [address] Bebeto Alvarado Basophils/100 WBC (Bld) 0.6 % Normal 0.2-2.0 [facility] Comment on above: Performed By: #### A 1C #### [facility] [address] [place] [address] Dr. Bebeto Alvarado EO # 0.2 103/ul Normal 0.0-0.7 [facility] Comment on above: Performed By: #### A 1C #### [facility] [address] [place] [address] Dr. Bebeto Alvarado Eosinophils/100 WBC (Bld) 2.3 % Normal 0.9-7.0 [facility] Comment on above: Performed By: #### A 1C #### [facility] [address] [place] [address] Dr. Bebeto Alvarado Erythrocyte distribution width (RBC) [Ratio] 13.8 % Normal 11.0-15.0 [facility] Comment on above: Performed By: #### A 1C #### [facility] [address] [place] [address] Dr. Bebeto Alvarado Hematocrit (Bld) [Volume fraction] 41.2 % Normal 36.0-48.0 [facility] Comment on above: Performed By: #### A 1C #### [facility] [address] [place] [address] Dr. Bebeto Alvarado Hemoglobin (Bld) [Mass/Vol] 13.2 g/dL Normal 12.0-16.0 [facility] Comment on above: Performed By: #### A 1C #### [facility] [address] [place] [address] Dr. Bebeto Alvarado IG # 0.03 10e3/ul Normal 0.00-0.03 [facility] Comment on above: Performed By: #### A 1C #### [facility] [address] [place] [address] Dr. Bebeto Alvarado IG % 0.4 % Normal 0.0-0.5 [facility] Comment on above: Performed By: #### A 1C #### [facility] [address] [place] [address] Dr. Bebeto Alvarado LYMPH # 2.1 103/ul Normal 1.2-3.8 [facility] Comment on above: Performed By: #### A 1C #### [facility] [address] [place] [address] Dr. Bebeto Alvarado Lymphocytes/100 WBC (Bld) 25.9 % Normal 20.5-60.0 [facility] Comment on above: Performed By: #### A 1C #### [facility] [address] [place] [address] Dr. Bebeto Alvarado MANUAL DIFF REQ NO Normal [facility] Comment on above: Performed By: #### A 1C #### [facility] [address] [place] [address] Dr. Bebeto Alvarado MCH (RBC) [Entitic mass] 28.0 pg Normal 26.7-34.0 [facility] Comment on above: Performed By: #### A 1C #### [facility] [address] [place] [address] Dr. Bebeto Alvarado MCHC (RBC) [Mass/Vol] 32.0 g/dL Normal 29.9-35.2 [facility] Comment on above: Performed By: #### A 1C #### [facility] [address] [place] [address] Dr. Bebeto Alvarado MCV (RBC) [Entitic vol] 87.5 fL Normal 81.0-99.0 [facility] Comment on above: Performed By: #### A 1C #### [facility] [address] [place] [address] Dr. Bebeto Alvarado MONO # 0.5 103/ul Normal 0.3-0.8 [facility] Comment on above: Performed By: #### A 1C #### [facility] [address] [place] [address] Dr. Bebeto Alvarado Monocytes/100 WBC (Bld) 6.6 % Normal 1.7-12.0 [facility] Comment on above: Performed By: #### A 1C #### [facility] [address] [place] [address] Dr. Bebeto Alvarado NEUT # 5.1 103/ul Normal 1.4-6.5 [facility] Comment on above: Performed By: #### A 1C #### [facility] [address] [place] [address] Dr. Bebeto Alvarado Neutrophils/100 WBC (Bld) 64.2 % Normal 43.0-75.0 [facility] Comment on above: Performed By: #### A 1C #### [facility] [address] [place] [address] Dr. Bebeto Alvarado Platelet mean volume (Bld) [Entitic vol] 11.2 fL Normal 9.5-13.5 [facility] Comment on above: Performed By: #### A 1C #### [facility] [address] [place] [address] Dr. Bebeto Alvarado PLT 252 103/ul Normal 150-450 [facility] Comment on above: Performed By: #### A 1C #### [facility] [address] [place] [address] Dr. Bebeto Alvarado RBC 4.71 106/ul Normal 4.20-5.40 [facility] Comment on above: Performed By: #### A 1C #### [facility] [address] [place] [address] Dr. Bebeto Alvarado WBC 8.0 103/ul Normal 4.0-11.0 [facility] Comment on above: Performed By: #### A 1C #### [facility] [address] [place] [address] Dr. Bebeto Alvarado GLYCOHEMOGLOBIN A1Con 2022 ADA RECOMMENDATION SEE BELOW Normal [facility] Comment on above: Result Comment: ADA RECOMMENDED LIMIT 4.0 - 6.0 ADA THERAPEUTIC TARGET < 7.0 ACTION SUGGESTED > 7.0 Performed By: #### A 1C #### [facility] [address] [place] [address] Dr. Bebeto Alvarado Glucose [Mass/Vol] 114 mg/dL Normal [facility] Comment on above: Performed By: #### A 1C #### [facility] [address] [place] [address] Dr. Bebeto Alvarado HbA1c (Bld) [Mass fraction] 5.6 % Normal 4.5-6.2 [facility] Comment on above: Performed By: #### A 1C #### [facility] [address] [address] [address] Bebeto Alvarado IRONon 07-25-2022 Iron [Mass/Vol] 60.0 ug/dL Normal 50.0-170.0 [facility] Comment on above: Performed By: #### V ITB12, IRON #### [facility] [address] [address] [address] Bebeto Alvarado LIPID PROFILEon 07-25-2022 CHOL-HDL RATIO NORM SEE BELOW Normal [facility] Comment on above: Result Comment: 3.3 - 4.4 LOW RISK 4.4 - 7.1 AVERAGE RISK 7.1 - 11.0 MODERATE RISK >11.0 HIGH RISK Performed By: #### C MP, LIPID #### [facility] [address] [place] [address] Dr. Bebeto Alvarado Cholesterol [Mass/Vol] 144 mg/dL Normal <=200 [facility] Comment on above: Performed By: #### C MP, LIPID #### [facility] [address] [place] [address] Dr. Bebeto Alvarado Cholesterol in HDL [Mass/Vol] 39 mg/dL Critically low 40-60 [facility] Comment on above: Performed By: #### C MP, LIPID #### [facility] [address] [place] [address] Dr. Bebeto Alvarado Cholesterol in LDL [Mass/Vol] 74.6 mg/dL Normal [facility] Comment on above: Performed By: #### C MP, LIPID #### [facility] [address] [place] [address] Dr. Bebeto Alvarado Cholesterol.total/Chol esterol in HDL [Mass ratio] 3.7 {ratio} Normal [facility] Comment on above: Performed By: #### C MP, LIPID #### [facility] [address] [place] [address] Dr. Bebeto Alvarado HDL NORMAL > or = 60 mg/dl - LO W CARDIOVASCULAR RISK <40 mg/dl - HIGH CARDIOVASCULAR RISK Normal [facility] Comment on above: Performed By: #### C MP, LIPID #### [facility] [address] [address] [address] Bebeto Alvarado LDL CALC NORMAL SEE BELOW Normal [facility] Comment on above: Result Comment: <100 mg/dl OPTIMAL 100 - 129 mg/dl NEAR OR ABOVE OPTIMAL 130 - 159 mg/dl BORDERLINE HIGH 160 - 189 mg/dl HIGH >190 mg/dl VERY HIGH Performed By: #### C MP, LIPID #### [facility] [address] [place] [address] Dr. Bebeto Alvarado Triglyceride [Mass/Vol] 152 mg/dL Critically high <=150 [facility] Comment on above: Performed By: #### C MP, LIPID #### [facility] [address] [place] [address] Dr. Bebeto Alvarado VLDL CALC 30.4 mg/dL Normal [facility] Comment on above: Performed By: #### C MP, LIPID #### [facility] [address] [place] [address] Dr. Bebeto Alvarado PROF 14(COMP METB)on 023 Albumin [Mass/Vol] 3.7 g/dL Normal 3.4-5.0 [facility] Comment on above: Performed By: #### C MP, LIPID #### [facility] [address] [place] [address] Dr. Bebeto Alvarado Albumin/Globulin [Mass ratio] 0.9 {ratio} Normal [facility] Comment on above: Performed By: #### C MP, LIPID #### [facility] [address] [place] [address] Dr. Bebeto Alvarado ALP [Catalytic activity/Vol] 90 U/L Normal 46-116 [facility] Comment on above: Performed By: #### C MP, LIPID #### [facility] [address] [place] [address] Dr. Bebeto Alvarado ALT [Catalytic activity/Vol] 38 U/L Normal 14-59 [facility] Comment on above: Performed By: #### C MP, LIPID #### [facility] [address] [place] [address] Dr. Bebeto Alvarado Anion gap [Moles/Vol] 12.1 mmol/L Normal [facility] Comment on above: Performed By: #### C MP, LIPID #### [facility] [address] [address] [address] Bebeto Alvarado AST [Catalytic activity/Vol] 26 U/L Normal 15-37 [facility] Comment on above: Performed By: #### C MP, LIPID #### [facility] [address] [address] [address] Bebeto Alvarado Bilirubin [Mass/Vol] 0.3 mg/dL Normal 0.2-1.0 [facility] Comment on above: Performed By: #### C MP, LIPID #### [facility] [address] [place] [address] Dr. Bebeto Alvarado Calcium [Mass/Vol] 9.3 mg/dL Normal 8.5-10.1 [facility] Comment on above: Performed By: #### C MP, LIPID #### [facility] [address] [place] [address] Dr. Bebeto Alvarado Chloride [Moles/Vol] 107 mmol/L Normal 98-107 [facility] Comment on above: Performed By: #### C MP, LIPID #### [facility] [address] [place] [address] Dr. Bebeto Alvarado CO2 [Moles/Vol] 27.9 mmol/L Normal 21.0-32.0 [facility] Comment on above: Performed By: #### C MP, LIPID #### [facility] [address] [place] [address] Dr. Bebeto Alvarado Creatinine [Mass/Vol] 0.95 mg/dL Normal 0.55-1.02 [facility] Comment on above: Performed By: #### C MP, LIPID #### [facility] [address] [place] [address] Dr. Bebeto Alvarado EGFR-AF BURUNDIAN >60 Normal >=60 [facility] Comment on above: Performed By: #### C MP, LIPID #### [facility] [address] [place] [address] Dr. Bebeto Alvarado EGFR-NON AF BURUNDIAN 60 mL/min/1.73m2 Normal >=60 [facility] Comment on above: Performed By: #### C MP, LIPID #### [facility] [address] [place] [address] Dr. Bebeto Alvarado Globulin (S) [Mass/Vol] 3.9 g/dL Normal [facility] Comment on above: Performed By: #### C MP, LIPID #### [facility] [address] [place] [address] Dr. Bebeto Alvarado Glucose [Mass/Vol] 108 mg/dL Critically high 74-106 [facility] Comment on above: Performed By: #### C MP, LIPID #### [facility] [address] [place] [address] Dr. Bebeto Alvarado Potassium [Moles/Vol] 4.0 mmol/L Normal 3.5-5.1 [facility] Comment on above: Performed By: #### C MP, LIPID #### [facility] [address] [place] [address] Dr. Bebeto Alvarado Protein [Mass/Vol] 7.6 g/dL Normal 6.4-8.2 [facility] Comment on above: Performed By: #### C MP, LIPID #### [facility] [address] [place] [address] Dr. Bebeto Alvarado Sodium [Moles/Vol] 143 mmol/L Normal 136-145 [facility] Comment on above: Performed By: #### C MP, LIPID #### [facility] [address] [place] [address] Dr. Bebeto Alvarado Urea nitrogen [Mass/Vol] 15.0 mg/dL Normal 7.0-18.0 [facility] Comment on above: Performed By: #### C MP, LIPID #### [facility] [address] [place] [address] Dr. Bebeto Alvarado Urea nitrogen/Creatinine [Mass ratio] 15.8 mg/mg Normal [facility] Comment on above: Performed By: #### C MP, LIPID #### [facility] [address] [place] [address] Dr. Bebeto Alvarado UA RANDOM W/MICROSCOPICon BACTERIA NONE SEEN Normal NONE SEEN [facility] Comment on above: Performed By: #### A 1C #### [facility] [address] [place] [address] Dr. Bebeto Alvarado Bilirubin Ql (U) Negative Normal NEGATIVE [facility] Comment on above: Performed By: #### A 1C #### [facility] [address] [place] [address] Dr. Bebeto Alvarado CAST NONE SEEN Normal NONE SEEN [facility] Comment on above: Performed By: #### A 1C #### [facility] [address] [place] [address] Dr. Bebeto Alvarado Clarity (U) CLEAR Normal CLEAR [facility] Comment on above: Performed By: #### A 1C #### [facility] [address] [place] [address] Dr. Bebeto Alvarado Color (U) YELLOW Normal YELLOW [facility] Comment on above: Performed By: #### A 1C #### [facility] [address] [place] [address] Dr. Bebeto Alvarado Crystals LM Nom (Urine sed) NONE SEEN Normal NONE SEEN [facility] Comment on above: Performed By: #### A 1C #### [facility] [address] [place] [address] Dr. Bebeto Alvarado Epithelial cells LM Ql (Urine sed) NONE SEEN Normal NONE SEEN /RARE [facility] Comment on above: Performed By: #### A 1C #### [facility] [address] [place] [address] Dr. Bebeto Alvarado Glucose Ql (U) Negative Normal NEGATIVE [facility] Comment on above: Performed By: #### A 1C #### [facility] [address] [place] [address] Dr. Bebeto Alvarado Hemoglobin Ql (U) Negative Normal NEGATIVE [facility] Comment on above: Performed By: #### A 1C #### [facility] [address] [place] [address] Dr. Bebeto Alvarado Ketones Ql (U) Negative Normal NEGATIVE [facility] Comment on above: Performed By: #### A 1C #### [facility] [address] [place] [address] Dr. Bebeto Alvarado LEUKOCYTES Negative Normal NEGATIVE [facility] Comment on above: Performed By: #### A 1C #### [facility] [address] [place] [address] Dr. Bebeto Alvarado MUCOUS NONE SEEN Normal NONE SEEN [facility] Comment on above: Performed By: #### A 1C #### [facility] [address] [place] [address] Dr. Bebeto Alvarado Nitrite Ql (U) Negative Normal NEGATIVE [facility] Comment on above: Performed By: #### A 1C #### [facility] [address] [place] [address] Dr. Bebeto Alvarado pH (U) 5.5 [pH] Normal 5-9 [facility] Comment on above: Performed By: #### A 1C #### [facility] [address] [place] [address] Dr. Bebeto Alvarado RBC NONE SEEN Abnormal 0-2 [facility] Comment on above: Performed By: #### A 1C #### [facility] [address] [place] [address] Dr. Bebeto Alvarado SPEC GRAVITY 1.030 Abnormal 1.005-<=1.02 5 [facility] Comment on above: Performed By: #### A 1C #### [facility] [address] [place] [address] Dr. Bebeto Alvarado UA PROTEIN Negative Normal NEGATIVE/ TRACE [facility] Comment on above: Performed By: #### A 1C #### [facility] [address] [place] [address] Dr. Bebeto Alvarado Urobilinogen Qn (U) 0.2 {Katerin'U}/dL Normal 0.2 - 1. 0 [facility] Comment on above: Performed By: #### A 1C #### [facility] [address] [place] [address] Dr. Bebeto Alvarado WBC NONE SEEN Normal NONE SEEN [facility] Comment on above: Performed By: #### A 1C #### [facility] [address] [place] [address] Dr. Bebeto Alvarado VITAMIN B12on 07-25-2022 Cobalamin (Vitamin B12) [Mass/Vol] 1684.0 pg/mL Critically high 193.0-986.0 [facility] Comment on above: Performed By: #### V ITB12, IRON #### [facility] [address] [address] [address] Bebeto Alvarado PROF CHEM 8 (BAS METB)on Anion gap [Moles/Vol] 12.2 mmol/L Normal [facility] Comment on above: Performed By: #### B MP #### [facility] [address] [address] [address] Bebeto Alvarado Calcium [Mass/Vol] 8.9 mg/dL Normal 8.5-10.1 [facility] Comment on above: Performed By: #### B MP #### [facility] [address] [address] [address] Bebeto Alvarado Chloride [Moles/Vol] 105 mmol/L Normal 98-107 [facility] Comment on above: Performed By: #### B MP #### [facility] [address] [address] [address] Bebeto Alvarado CO2 [Moles/Vol] 29.6 mmol/L Normal 21.0-32.0 [facility] Comment on above: Performed By: #### B MP #### [facility] [address] [address] [address] Bebeto Alvarado Creatinine [Mass/Vol] 0.95 mg/dL Normal 0.55-1.02 [facility] Comment on above: Performed By: #### B MP #### [facility] [address] [address] [address] Bebeto Alvarado EGFR-AF BURUNDIAN >60 Normal >=60 [facility] Comment on above: Performed By: #### B MP #### [facility] [address] [address] [address] Bebeto Alvarado EGFR-NON AF BURUNDIAN 60 mL/min/1.73m2 Normal >=60 [facility] Comment on above: Performed By: #### B MP #### [facility] [address] [address] [address] Bebeto Alvarado Glucose [Mass/Vol] 101 mg/dL Normal 74-106 [facility] Comment on above: Performed By: #### B MP #### [facility] [address] [address] [address] Bebeto Alvarado Potassium [Moles/Vol] 3.8 mmol/L Normal 3.5-5.1 [facility] Comment on above: Performed By: #### B MP #### [facility] [address] [address] [address] Bebeto Alvarado Sodium [Moles/Vol] 143 mmol/L Normal 136-145 [facility] Comment on above: Performed By: #### B MP #### [facility] [address] [place] [address] Dr. Bebeto Alvarado Urea nitrogen [Mass/Vol] 16.0 mg/dL Normal 7.0-18.0 [facility] Comment on above: Performed By: #### B MP #### [facility] [address] [place] [address] Dr. Bebeto Alvarado Urea nitrogen/Creatinine [Mass ratio] 16.8 mg/mg Normal [facility] Comment on above: Performed By: #### B MP #### [facility] [address] [place] [address] Dr. Bebeto Alvarado CBC AUTO DIFFon 11-21-2021 BASO # 0.1 103/ul Normal 0.0-0.1 [facility] Comment on above: Performed By: #### A 1C #### [facility] [address] [place] [address] Dr. Bebeto Alvarado Basophils/100 WBC (Bld) 1.0 % Normal 0.2-2.0 [facility] Comment on above: Performed By: #### A 1C #### [facility] [address] [place] [address] Dr. Bebeto Alvarado EO # 0.2 103/ul Normal 0.0-0.7 [facility] Comment on above: Performed By: #### A 1C #### [facility] [address] [place] [address] Dr. Bebeto Alvarado Eosinophils/100 WBC (Bld) 3.3 % Normal 0.9-7.0 [facility] Comment on above: Performed By: #### A 1C #### [facility] [address] [place] [address] Dr. Bebeto Alvarado Erythrocyte distribution width (RBC) [Ratio] 13.8 % Normal 11.0-15.0 [facility] Comment on above: Performed By: #### A 1C #### [facility] [address] [place] [address] Dr. Bebeto Alvarado Hematocrit (Bld) [Volume fraction] 38.8 % Normal 36.0-48.0 [facility] Comment on above: Performed By: #### A 1C #### [facility] [address] [place] [address] Dr. Bebeto Alvarado Hemoglobin (Bld) [Mass/Vol] 12.5 g/dL Normal 12.0-16.0 [facility] Comment on above: Performed By: #### A 1C #### [facility] [address] [place] [address] Dr. Bebeto Alvarado IG # 0.02 10e3/ul Normal 0.00-0.03 [facility] Comment on above: Performed By: #### A 1C #### [facility] [address] [place] [address] Dr. Bebeto Alvarado IG % 0.3 % Normal 0.0-0.5 [facility] Comment on above: Performed By: #### A 1C #### [facility] [address] [place] [address] Dr. Bebeto Alvarado LYMPH # 1.9 103/ul Normal 1.2-3.8 [facility] Comment on above: Performed By: #### A 1C #### [facility] [address] [place] [address] Dr. Bebeto Alvarado Lymphocytes/100 WBC (Bld) 29.6 % Normal 20.5-60.0 [facility] Comment on above: Performed By: #### A 1C #### [facility] [address] [place] [address] Dr. Bebeto Alvarado MANUAL DIFF REQ NO Normal [facility] Comment on above: Performed By: #### A 1C #### [facility] [address] [place] [address] Dr. Bebeto Alvarado MCH (RBC) [Entitic mass] 28.0 pg Normal 26.7-34.0 [facility] Comment on above: Performed By: #### A 1C #### [facility] [address] [place] [address] Dr. Bebeto Alvarado MCHC (RBC) [Mass/Vol] 32.2 g/dL Normal 29.9-35.2 [facility] Comment on above: Performed By: #### A 1C #### [facility] [address] [place] [address] Dr. Bebeto Alvarado MCV (RBC) [Entitic vol] 86.8 fL Normal 81.0-99.0 [facility] Comment on above: Performed By: #### A 1C #### [facility] [address] [place] [address] Dr. Bebeto Alvarado MONO # 0.4 103/ul Normal 0.3-0.8 [facility] Comment on above: Performed By: #### A 1C #### [facility] [address] [place] [address] Dr. Bebeto Alvarado Monocytes/100 WBC (Bld) 5.7 % Normal 1.7-12.0 [facility] Comment on above: Performed By: #### A 1C #### [facility] [address] [place] [address] Dr. Bebeto Alvarado NEUT # 3.8 103/ul Normal 1.4-6.5 [facility] Comment on above: Performed By: #### A 1C #### [facility] [address] [place] [address] Dr. Bebeto Alvarado Neutrophils/100 WBC (Bld) 60.1 % Normal 43.0-75.0 [facility] Comment on above: Performed By: #### A 1C #### [facility] [address] [place] [address] Dr. Bebeto Alvarado Platelet mean volume (Bld) [Entitic vol] 11.0 fL Normal 9.5-13.5 [facility] Comment on above: Performed By: #### A 1C #### [facility] [address] [place] [address] Dr. Bebeto Alvarado PLT 264 103/ul Normal 150-450 [facility] Comment on above: Performed By: #### A 1C #### [facility] [address] [address] [address] Bebeto Alvarado RBC 4.47 106/ul Normal 4.20-5.40 [facility] Comment on above: Performed By: #### A 1C #### [facility] [address] [place] [address] Dr. Bebeto Alvarado WBC 6.3 103/ul Normal 4.0-11.0 [facility] Comment on above: Performed By: #### A 1C #### [facility] [address] [place] [address] Dr. Bebeto Alvarado GLYCOHEMOGLOBIN A1Con 2021 ADA RECOMMENDATION SEE BELOW Normal [facility] Comment on above: Result Comment: ADA RECOMMENDED LIMIT 4.0 - 6.0 ADA THERAPEUTIC TARGET < 7.0 ACTION SUGGESTED > 7.0 Performed By: #### A 1C #### [facility] [address] [place] [address] Dr. Bebeto Alvarado Glucose [Mass/Vol] 105 mg/dL Normal [facility] Comment on above: Performed By: #### A 1C #### [facility] [address] [place] [address] Dr. Bebeto Alvarado HbA1c (Bld) [Mass fraction] 5.3 % Normal 4.5-6.2 [facility] Comment on above: Performed By: #### A 1C #### [facility] [address] [place] [address] Dr. Bebeto Alvarado IRONon 11-21-2021 Iron [Mass/Vol] 59.0 ug/dL Normal 50.0-170.0 [facility] Comment on above: Performed By: #### A 1C #### [facility] [address] [address] [address] Bebeto Alvarado LIPID PROFILEon 11-21-2021 CHOL-HDL RATIO NORM SEE BELOW Normal [facility] Comment on above: Result Comment: 3.3 - 4.4 LOW RISK 4.4 - 7.1 AVERAGE RISK 7.1 - 11.0 MODERATE RISK >11.0 HIGH RISK Performed By: #### C MP, LIPID #### [facility] [address] [address] [address] Bebeto Alvarado Cholesterol [Mass/Vol] 139 mg/dL Normal <=200 [facility] Comment on above: Performed By: #### C MP, LIPID #### [facility] [address] [place] [address] Dr. Bebeto Alvarado Cholesterol in HDL [Mass/Vol] 35 mg/dL Critically low 40-60 [facility] Comment on above: Performed By: #### C MP, LIPID #### [facility] [address] [place] [address] Dr. Bebeto Alvarado Cholesterol in LDL [Mass/Vol] 69.6 mg/dL Normal [facility] Comment on above: Performed By: #### C MP, LIPID #### [facility] [address] [place] [address] Dr. Bebeto Alvarado Cholesterol.total/Chol esterol in HDL [Mass ratio] 4.0 {ratio} Normal [facility] Comment on above: Performed By: #### C MP, LIPID #### [facility] [address] [place] [address] Dr. Bebeto Alvarado HDL NORMAL > or = 60 mg/dl - LO W CARDIOVASCULAR RISK <40 mg/dl - HIGH CARDIOVASCULAR RISK Normal [facility] Comment on above: Performed By: #### C MP, LIPID #### [facility] [address] [place], [place] [id number] Dr. Bebeto Alvarado LDL CALC NORMAL SEE BELOW Normal [facility] Comment on above: Result Comment: <100 mg/dl OPTIMAL 100 - 129 mg/dl NEAR OR ABOVE OPTIMAL 130 - 159 mg/dl BORDERLINE HIGH 160 - 189 mg/dl HIGH >190 mg/dl VERY HIGH Performed By: #### C MP, LIPID #### [facility] [address] [place] [address] Dr. Bebeto Alvarado Triglyceride [Mass/Vol] 172 mg/dL Critically high <=150 [facility] Comment on above: Performed By: #### C MP, LIPID #### [facility] [address] [address] [address] Bebeot Alvarado VLDL CALC 34.4 mg/dL Normal [facility] Comment on above: Performed By: #### C MP, LIPID #### [facility] [address] [place] [address] Dr. Bebeto Alvarado PROF 14(COMP METB)on 022 Albumin [Mass/Vol] 3.8 g/dL Normal 3.4-5.0 [facility] Comment on above: Performed By: #### C MP, LIPID #### [facility] [address] [place] [address] Dr. Bebeto Alvarado Albumin/Globulin [Mass ratio] 1.1 {ratio} Normal [facility] Comment on above: Performed By: #### C MP, LIPID #### [facility] [address] [place] [address] Dr. Bebeto Alvarado ALP [Catalytic activity/Vol] 96 U/L Normal 46-116 [facility] Comment on above: Performed By: #### C MP, LIPID #### [facility] [address] [place] [address] Dr. Bebeto Alvarado ALT [Catalytic activity/Vol] 25 U/L Normal 14-59 [facility] Comment on above: Performed By: #### C MP, LIPID #### [facility] [address] [place] [address] Dr. Bebeto Alvarado Anion gap [Moles/Vol] 11.8 mmol/L Normal [facility] Comment on above: Performed By: #### C MP, LIPID #### [facility] [address] [place] [address] Dr. Bebeto Alvarado AST [Catalytic activity/Vol] 20 U/L Normal 15-37 [facility] Comment on above: Performed By: #### C MP, LIPID #### [facility] [address] [address] [address] Bebeto Alvarado Bilirubin [Mass/Vol] 0.4 mg/dL Normal 0.2-1.0 [facility] Comment on above: Performed By: #### C MP, LIPID #### [facility] [address] [address] [address] Bebeto Alvarado Calcium [Mass/Vol] 8.8 mg/dL Normal 8.5-10.1 [facility] Comment on above: Performed By: #### C MP, LIPID #### [facility] [address] [address] [address] Bebeto Alvarado Chloride [Moles/Vol] 106 mmol/L Normal 98-107 [facility] Comment on above: Performed By: #### C MP, LIPID #### [facility] [address] [place] [address] Dr. Bebeto Alvarado CO2 [Moles/Vol] 27.0 mmol/L Normal 21.0-32.0 [facility] Comment on above: Performed By: #### C MP, LIPID #### [facility] [address] [place] [address] Dr. Bebeto Alvarado Creatinine [Mass/Vol] 0.97 mg/dL Normal 0.55-1.02 [facility] Comment on above: Performed By: #### C MP, LIPID #### [facility] [address] [place] [address] Dr. Bebeto Alvarado EGFR-AF BURUNDIAN >60 Normal >=60 [facility] Comment on above: Performed By: #### C MP, LIPID #### [facility] [address] [place] [address] Dr. Bebeto Alvarado EGFR-NON AF BURUNDIAN 59 mL/min/1.73m2 Critically low >=60 [facility] Comment on above: Performed By: #### C MP, LIPID #### [facility] [address] [place] [address] Dr. Bebeto Alvarado Globulin (S) [Mass/Vol] 3.4 g/dL Normal [facility] Comment on above: Performed By: #### C MP, LIPID #### [facility] [address] [address] [address] Bebeto Alvarado Glucose [Mass/Vol] 103 mg/dL Normal 74-106 [facility] Comment on above: Performed By: #### C MP, LIPID #### [facility] [address] [address] [address] Bebeto Alvarado Potassium [Moles/Vol] 3.8 mmol/L Normal 3.5-5.1 [facility] Comment on above: Performed By: #### C MP, LIPID #### [facility] [address] [address] [address] Bebeto Alvarado Protein [Mass/Vol] 7.2 g/dL Normal 6.4-8.2 [facility] Comment on above: Performed By: #### C MP, LIPID #### [facility] [address] [place] [address] Dr. Bebeto Alvarado Sodium [Moles/Vol] 141 mmol/L Normal 136-145 [facility] Comment on above: Performed By: #### C MP, LIPID #### [facility] [address] [place] [address] Dr. Bebeto Alvarado Urea nitrogen [Mass/Vol] 11.0 mg/dL Normal 7.0-18.0 [facility] Comment on above: Performed By: #### C MP, LIPID #### [facility] [address] [place] [address] Dr. Bebeto Alvarado Urea nitrogen/Creatinine [Mass ratio] 11.3 mg/mg Normal [facility] Comment on above: Performed By: #### C MP, LIPID #### [facility] [address] [place] [address] Dr. Bebeto Alvarado URIC ACID SERUMon 11-21-2021 Urate [Mass/Vol] 7.3 mg/dL Critically high 2.6-6.0 [facility] Comment on above: Performed By: #### A 1C #### [facility] [address] [place] [address] Dr. Bebeto Alvarado VITAMIN B12on 11-21-2021 Cobalamin (Vitamin B12) [Mass/Vol] 2123.0 pg/mL Critically high 193.0-986.0 [facility] Comment on above: Performed By: #### A 1C #### [facility] [address] [address] [address] Bebeto Alvarado Physician Referralon 022 Physician Referral [id number] Normal [facility] KNEE RIGHT 1 OR 2 VWSon KNEE RIGHT 1 OR 2 VWS [facility] Department of Radiology [address] [place] [address] ======== Patient Name: MICHELLE BE : 1960 Sex: F Age: Race: White Pt. Location: 84 Patient Status: O Ordered Date: 02/08/2019 10:40:00 AM Completed Date: 02/08/2019 10:38 AM Requesting Provider: AHSAN BINGHAM Attending Provider: AHSAN BINGHAM Report Copy To: Signs & Symptoms: S82.001A Unsp fracture of right patella, init for clos fx I10 History: [place] Comments: , , , Ordering Provider - [...] Electronically signed by:Debra Del Cid. Transcribed by: [email or web address], User Resident: Electronically Signed by: DEBRA DEL CID @ 02/08/2019 11:16 AM Normal [facility] Comment on above: Order Comment: , Mabel ws (X-RAY, KNEE): Radiologic Protocol , Weight Bearing?: N , With or Without Brace/Cast/Collar: With , Views (X-RAY, KNEE): Radiologic Protocol , Weight Bearing?: N , With or Without Brace/Cast/Collar: With , , , Ordering Provider - AHSAN BINGHAM PA-C , KNEE RIGHT 1 OR 2 [facility] KNEE RIGHT 1 OR 2 [facility] Department of Radiology [address] [place] [id number] ======== Patient Name: MICHELLE BE : [...] complications. Electronically signed by:Tomasz Stoll. Transcribed by: [email or web address], User Resident: Electronically Signed by: TOMASZ STOLL @ 12/07/2018 11:14 AM Normal [facility] Comment on above: Order Comment: , Mabel ws (X-RAY, KNEE): Radiologic Protocol , Weight Bearing?: N , With or Without Brace/Cast/Collar: With , Views (X-RAY, KNEE): Radiologic Protocol , Weight Bearing?: N , With or Without Brace/Cast/Collar: With , , , Ordering Provider - AHSAN BINGHAM PA-C , KNEE RIGHT 1 OR 2 VWSon KNEE RIGHT 1 OR 2 VWS [facility] Department of Radiology [address] [place] [phone] ======== Patient Name: MICHELLE BE : [...] osteoarthritis Electronically signed by:Anup Ellison. Transcribed by: [email or web address], User Resident: Electronically Signed by: ANUP ELLISON @ 10/06/2018 02:48 PM Normal [facility] Comment on above: Order Comment: , Vie ws (X-RAY, KNEE): Radiologic Protocol , Weight Bearing?: N , With or Without Brace/Cast/Collar: With , Views (X-RAY, KNEE): Radiologic Protocol , Weight Bearing?: N , With or Without Brace/Cast/Collar: With , , , Ordering Provider - AHSAN BINGHAM PA-C , KNEE RIGHT 1 OR 2 [facility] 08-05 KNEE RIGHT 1 OR 2 [facility] Department of Radiology [address] [place] [phone] ======== Patient Name: MICHELLE BE : [...] effusion Electronically signed by:Anup Ellison. Transcribed by: [email or web address], User Resident: Electronically Signed by: ANUP ELLISON @ 08/26/2018 04:56 PM Normal [facility] Comment on above: Order Comment: , Vie ws (X-RAY, KNEE): Radiologic Protocol , Weight Bearing?: N , With or Without Brace/Cast/Collar: With , Views (X-RAY, KNEE): Radiologic Protocol , Weight Bearing?: N , With or Without Brace/Cast/Collar: With , , , Ordering Provider - AHSAN BINGHAM PA-C , KNEE RIGHT 1 OR 2 [facility] 07-06 KNEE RIGHT 1 OR 2 S [facility] Department of Radiology [address] [place] [phone] ======== Patient Name: MICHELLE BE : 1960 Sex: F Age: Race: White Pt. Location: 84 Patient Status: Ordered Date: 07/29/2018 2:10:00 PM Completed Date: 07/29/2018 02:12 PM Requesting Provider: AHSAN BINGHAM Attending Provider: Report Copy To: Signs & Symptoms: S82.001A Unsp fracture of right patella, init for clos fx I10 History: [place] Comments: , , , Ordering Provider - [...] compartment Electronically signed by:Anup Ellison. Transcribed by: [email or web address], User Resident: Electronically Signed by: ANUP ELLISON @ 07/29/2018 03:41 PM Normal [facility] Comment on above: Order Comment: , Vie ws (X-RAY, KNEE): Radiologic Protocol , Weight Bearing?: N , With or Without Brace/Cast/Collar: With , Views (X-RAY, KNEE): Radiologic Protocol , Weight Bearing?: N , With or Without Brace/Cast/Collar: With , , , Ordering Provider - AHSAN BINGHAM PA-C , KNEE RIGHT 3 [facility] 9 KNEE RIGHT 3 [facility] Department of Radiology [address] [place] [phone] ======== Patient Name: MICHELLE BE : 1960 Sex: F Age: Race: White Pt. Location: Patient Status: Ordered Date: 07/15/2018 8:45:00 AM Completed Date: 07/15/2018 08:47 AM Requesting Provider: AHSAN BINGHAM Attending Provider: Report Copy To: Signs & Symptoms: S82.001A Unsp fracture of right patella, init for clos fx I10 History: [place] Comments: , , , Ordering Provider - AHSAN BINGHAM PA-C , Exam: KNEE RIGHT 3 [facility] ======== KNEE RIGHT 3 VWS 07/15/2018 [...] knee Electronically signed by:Anup Ellison. Transcribed by: [email or web address], User Resident: Electronically Signed by: ANUP LELISON @ 07/15/2018 03:31 PM Normal [facility] Comment on above: Order Comment: , Rossie ws (X-RAY, KNEE): Radiologic Protocol , Weight Bearing?: N , With or Without Brace/Cast/Collar: With , Views (X-RAY, KNEE): Radiologic Protocol , Weight Bearing?: N , With or Without Brace/Cast/Collar: With , , , Ordering Provider - AHSAN BINGHAM PA-C , Operative Reporton 9 Operative Report MR#: [id number] [facility] Pt. Name: Michelle Be Room #: [...] Duarte MD Date Trans: 07/03/2018 04:28 Monse/terry [id number] Normal [facility] *ANAEROBIC CULTUREon 019 *ANAEROBIC CULTURE Clinical Report: (D) Specimen/Source: SWAB/RT KNEE Collected: 07/02/2018 13:53 Status: Final Last Updated: 07/07/2018 08:02 CULT RES (Final) No Anaerobes Isolated 5 Days Normal [facility] Comment on above: Performed By: #### 3 0312 #### [facility] [address] *WOUND CULTUREon 07-02-2018 *WOUND CULTURE Clinical Report: (D) Specimen/Source: WOUND/INTRAOP SPEC Collected: 07/02/2018 13:53 Status: Final Last Updated: 07/07/2018 10:13 (1) #1 RT KNEE GRAM (Final) Rare Polys No Bacteria Seen CULT RES (Final) No Growth Day 5 Normal [facility] Comment on above: Order Comment: #1 RT KNEE Performed By: #### 3 0343 #### [facility] [address] [place] [address], [facility] KNEE RIGHT 1 OR 2 Sri 06-05 KNEE RIGHT 1 OR 2 [facility] Department of Radiology [address] [place] [address] ======== Patient Name: MICHELLE BE [...] PATELLA Exam: KNEE RIGHT 1 OR 2 [facility] ======== KNEE RIGHT 1 OR 2 [facility] 07/02/2018 2:00 PM EDT SIGNS AND SYMPTOMS: ORIF VS PERCUTANEOUS FIXATION RIGHT PATELLA TECHNOLOGIST COMMENTS: 1.58 mins of fluoro used by Dr Escalante LT knee screw fixation revision QUESTION FOR THE RADIOLOGIST: ORIF VS PERCUTANEOUS FIXATION RIGHT PATELLA PROTOCOL: AP(PA) and Lateral views were obtained. COMPARISON: None FINDINGS: Soft tissues: Bones: Joints: IMPRESSION: Documentation Electronically signed by:Debra Del Cid. Transcribed by: [email or web address], User Resident: Electronically Signed by: DEBRA DEL CID @ 07/02/2018 02:03 PM Normal [facility] Comment on above: Order Comment: ORIF VS PERCUTANEOUS FIXATION RIGHT PATELLA POC GLUCOSE LABon 07-02-2018 Glucose [Mass/Vol] 108 mg/dL High 70-100 [facility] Comment on above: Performed By: #### 8 5499 #### [facility] [address] [place] [address], [facility] APTTon 06-30-2018 aPTT Coag (Bld) [Time] 30.6 s Normal 25.0-35.0 [facility] Comment on above: Result Comment: ALL [...] THIS PURPOSE. Performed By: #### 5 6101, 15646 #### [facility] [address] [facility] [place] [address], [facility] BASIC METABOLIC PANELon 06-05 Calcium [Mass/Vol] 9.7 mg/dL Normal 8.6-10.3 [facility] Comment on above: Performed By: #### 0 0071 #### [facility] [address] [place] [address], [facility] Chloride [Moles/Vol] 102 mmol/L Normal 98-107 [facility] Comment on above: Performed By: #### 0 0071 #### [facility] [address] [place] [address], [facility] CO2 [Moles/Vol] 28 mmol/L Normal 21-31 [facility] Comment on above: Performed By: #### 0 0071 #### [facility] [address] [place] [address], [facility] Creatinine [Mass/Vol] 1.20 mg/dL Normal 0.60-1.20 [facility] Comment on above: Performed By: #### 0 0071 #### [facility] [address] [place] [address], [facility] GFR/1.73 sq M predicted among blacks MDRD (S/P/Bld) [Vol rate/Area] 56 ml/min/1.73sq m Abnormal >60 [facility] Comment on above: Performed By: #### 0 0071 #### [facility] [address] [place] [address], [facility] GFR/1.73 sq M predicted among non-blacks MDRD (S/P/Bld) [Vol rate/Area] 47 ml/min/1.73sq m Abnormal >60 [facility] Comment on above: Performed By: #### 0 0071 #### [facility] [address] [place] [address], [facility] Glucose [Mass/Vol] 97 mg/dL Normal 70-100 [facility] Comment on above: Performed By: #### 0 0071 #### [facility] [address] [facility]. [address] Potassium [Moles/Vol] 4.1 mmol/L Normal 3.5-5.1 [facility] Comment on above: Performed By: #### 0 0071 #### [facility] [address] [place] [address], [facility] Sodium [Moles/Vol] 137 mmol/L Normal 136-145 [facility] Comment on above: Performed By: #### 0 0071 #### [facility] [address] [place] [address], [facility] Urea nitrogen [Mass/Vol] 19 mg/dL Normal 7-25 [facility] Comment on above: Performed By: #### 0 0071 #### [facility] [address] [facility] [address], [facility] CBC W/DIFFon 06-30-2018 ABS BASOPHILS 0.1 10*3/uL Normal 0.0-0.2 [facility] Comment on above: Performed By: #### 5 0103 #### [facility] [address] [facility] [place] [address], [facility] ABS IMM GRANS 0.0 10*3/uL Normal 0.0-0.2 [facility] Comment on above: Performed By: #### 5 0103 #### [facility] [address] [facility] [place] [address], [facility] ABS NEUTROPHILS 6.4 10*3/uL Normal 1.6-7.6 [facility] Comment on above: Performed By: #### 5 0103 #### [facility] [address] [facility] [place] [address], [facility] Basophils/100 WBC (Bld) 0.7 % Normal 0.0-1.0 [facility] Comment on above: Performed By: #### 5 0103 #### [facility] [address] [facility] [place] [address], [facility] Eosinophils (Bld) [#/Vol] 0.2 10*3/uL Normal 0.0-0.5 [facility] Comment on above: Performed By: #### 5 0103 #### [facility] [address] [facility] [place] [address], [facility] Eosinophils/100 WBC (Bld) 1.5 % Normal 0.0-6.0 [facility] Comment on above: Performed By: #### 5 0103 #### [facility] [address] [facility] [place] [address], [facility] Erythrocyte distribution width (RBC) [Ratio] 14.4 % Normal 11.5-15.0 [facility] Comment on above: Performed By: #### 5 0103 #### [facility] [address] [facility] [place] [address], [facility] Hematocrit (Bld) [Volume fraction] 40.6 % Normal 36.0-45.0 [facility] Comment on above: Performed By: #### 5 0103 #### [facility] [address] [place] [address], [facility] Hemoglobin (Bld) [Mass/Vol] 13.3 g/dL Normal 12.0-15.0 [facility] Comment on above: Performed By: #### 5 0103 #### [facility] [address] [facility] [place] [address], [facility] IMMATURE GRANS 0.4 % Normal 0.0-1.0 [facility] Comment on above: Performed By: #### 5 0103 #### [facility] [address] [facility] [address], [facility] Lymphocytes (Bld) [#/Vol] 2.6 10*3/uL Normal 1.2-4.0 [facility] Comment on above: Performed By: #### 5 0103 #### [facility] [address] [place] [address], [facility] Lymphocytes/100 WBC (Bld) 26.5 % Normal 20.0-45.0 [facility] Comment on above: Performed By: #### 5 0103 #### [facility] [address] [place] [address], [facility] MCH (RBC) [Entitic mass] 27.4 pg Normal 27.0-33.0 [facility] Comment on above: Performed By: #### 5 0103 #### [facility] [address] [place] [address], [facility] MCHC (RBC) [Mass/Vol] 32.8 g/dL Normal 32.0-35.0 [facility] Comment on above: Performed By: #### 5 0103 #### [facility] [address] [place] [address], [facility] MCV (RBC) [Entitic vol] 83.5 fL Normal 82.0-98.0 [facility] Comment on above: Performed By: #### 5 0103 #### [facility] [address] [facility] [place] [address], [facility] Monocytes (Bld) [#/Vol] 0.5 10*3/uL Normal 0.1-1.0 [facility] Comment on above: Performed By: #### 5 0103 #### [facility] [address] MONOS 5.0 % Normal 5.0-12.0 [facility] Comment on above: Performed By: #### 5 0103 #### [facility] [address] Neutrophils/100 WBC (Bld) 65.9 % Normal 40.0-72.0 [facility] Comment on above: Performed By: #### 5 0103 #### [address] Nucleated RBC/100 WBC (Bld) [Ratio] 0 % Normal 0-0 [facility] Comment on above: Performed By: #### 5 0103 #### [address] PLAT CNT 290 10*3/uL Normal 150-400 [facility] Comment on above: Performed By: #### 5 0103 #### [address] RBC (Bld) [#/Vol] 4.86 10*6/uL Normal 3.80-5.00 [facility] Comment on above: Performed By: #### 5 0103 #### [place] [address], [facility] WBC (Bld) [#/Vol] 9.68 10*3/uL Normal 4.00-10.60 [facility] Comment on above: Performed By: #### 5 0103 #### [address] KNEE RIGHT 1 OR 2 VWSon 06-05 KNEE RIGHT 1 OR 2 VWS [facility] Department of Radiology [address] [place] [phone] ======== Patient Name: MICHELLE BE : [...] Electronically signed by:Debra Del Cid. Transcribed by: [email or web address], User Resident: Electronically Signed by: DEBRA DEL CID @ 06/30/2018 11:52 AM [facility] Comment on above: Order Comment: , Mabel ws (X-RAY, KNEE): Radiologic Protocol , Weight Bearing?: N , With or Without Brace/Cast/Collar: With , Views (X-RAY, KNEE): Radiologic Protocol , Weight Bearing?: N , With or Without Brace/Cast/Collar: With , , , Ordering Provider - AHSAN BINGHAM PA-C , PROTHROMBIN TIMEon 9 INR Coag (PPP) [Relative time] 0.98 {INR} Normal 0.91-1.16 [facility] Comment on above: Result Comment: [facility] P RECOMMENDED INR FOR WARFARIN THERAPY [...] CHEST 1995;108:231S-246S. Performed By: #### 5 6101, 16087 #### [facility] [address] [place] [address], [facility] PT Coag (PPP) [Time] 13.0 s Normal 12.3-14.8 [facility] Comment on above: Result Comment: ALL RESULTS MUST BE INTERPRETED WITH RESPECT TO BLOOD DRAWING ARTIFACT OR DILUTION ERROR OF ANTICOAGULANT AT THE TIME OF SAMPLING. Performed By: #### 5 6101, [id number] #### [facility] [address] [place] [address], [facility] KNEE RIGHT 3 Son 9 KNEE RIGHT 3 [facility] Department of Radiology [address] [place] [phone] ======== Patient Name: MICHELLE BE : 1960 Sex: F Age: Race: White Pt. Location: Patient Status: O Ordered Date: 06/15/2018 1:35:00 PM Completed Date: 06/15/2018 01:34 PM Requesting Provider: AMPARO ZHANG Attending Provider: AMPARO ZHANG Report Copy To: ADELAIDA CARRION Signs & Symptoms: M17.11 Unilateral primary osteoarthritis, right knee I10 History: [place] Comments: , Weight Bearing?: Y , Weight [...] effusion Electronically signed by:Anup Ellison. Transcribed by: [email or web address], User Resident: Electronically Signed by: ANUP ELLISON @ 06/15/2018 03:50 PM Normal [facility] Comment on above: Order Comment: , Isaiah ght Bearing?: Y , Weight Bearing?: Y , , , Ordering Provider - AMPARO REDDY-Keiry , Vital Signs Date Time Vital Sign Value Performing Clinician Facility 05-24-2024 08:19-0500 Body height 162.6 cm [employer] Work Phone: [facility] 05-24-2024 08:19-0500 Body mass index (BMI) [Ratio] 50.29 kg/m2 [employer] Work Phone: [facility] 05-24-2024 08:19-0500 Body weight 132.9 kg [employer] Work Phone: [facility] 05-24-2024 08:19-0500 Diastolic blood pressure 72 mm[Hg] Juany Lowe PA Work Phone: [facility] 05-24-2024 08:19-0500 Heart rate 62 /min Juany Lowe PA Work Phone: [facility] 05-24-2024 08:19-0500 Respiratory rate 16 /min Juany Lowe PA Work Phone: [facility] 05-24-2024 08:19-0500 SaO2% (BldA) [Mass fraction] 100 % Juany Lowe PA Work Phone: [facility] 05-24-2024 08:19-0500 Systolic blood pressure 110 mm[Hg] Juany Lowe PA Work Phone: [facility] 05-12-2024 10:04-0500 Body height 162.6 cm Adelaida Aichholz [employer] Work Phone: [facility] 05-12-2024 10:04-0500 Body mass index (BMI) [Ratio] 49.16 kg/m2 Adelaida Aichholz [employer] Work Phone: [facility] 05-12-2024 10:04-0500 Body temperature 98.49 [degF] Adelaida Aichholz [employer] Work Phone: [facility] 05-12-2024 10:04-0500 Body weight 129.91 kg Adelaida Aichholz [employer] Work Phone: [facility] 05-12-2024 10:04-0500 Diastolic blood pressure 78 mm[Hg] Adelaida Aichholz [employer] Work Phone: [facility] 05-12-2024 10:04-0500 Heart rate 80 /min Adelaida Aichholz [employer] Work Phone: [facility] 05-12-2024 10:04-0500 Respiratory rate 20 /min Adelaida Aichholz [employer] Work Phone: [facility] 05-12-2024 10:04-0500 SaO2% (BldA) [Mass fraction] 98 % Adelaida Merryholz [employer] Work Phone: [facility] 05-12-2024 10:04-0500 Systolic blood pressure 118 mm[Hg] Adelaida Aichholz [employer] Work Phone: [facility] 03-16-2024 09:53-0500 Body height 162.6 cm Adelaida Aichholz [employer] Work Phone: [facility] [facility] 03-16-2024 09:53-0500 Body mass index (BMI) [Ratio] 48.41 kg/m2 Adelaida Aichholz [employer] Work Phone: [facility] 03-16-2024 09:53-0500 Body temperature 98.01 [degF] Adelaida Yinghholz [employer] TE[employer] Work Phone: [facility] 03-16-2024 09:53-0500 Body weight 127.91 kg Adelaida Aichholz [employer] TE[employer] Work Phone: [facility] 03-16-2024 09:53-0500 Diastolic blood pressure 80 mm[Hg] Adelaida Aichholz [employer] Work Phone: [facility] 03-16-2024 09:53-0500 Heart rate 79 /min Adelaida Aichholz [employer] Work Phone: [facility] 03-16-2024 09:53-0500 Respiratory rate 18 /min Adelaida Aichholz [employer] TE[employer] Work Phone: [facility] 03-16-2024 09:53-0500 SaO2% (BldA) [Mass fraction] 98 % Adelaida Aichholz [employer] Work Phone: [facility] 03-16-2024 09:53-0500 Systolic blood pressure 120 mm[Hg] Adelaida Aichholz [employer] TE[employer] Work Phone: [facility] 03-10-2024 15:20-0500 Body height 162.6 cm Rachel REDDY Work Phone: [facility] 03-10-2024 15:20-0500 Body mass index (BMI) [Ratio] 48.41 kg/m2 Rachel Stephen PA Work Phone: [facility] 03-10-2024 15:20-0500 Body weight 127.91 kg Rachelgeorgette Mitchell PA Work Phone: [facility] 03-10-2024 15:20-0500 Diastolic blood pressure 68 mm[Hg] Rachel Stephen PA Work Phone: [facility] 03-10-2024 15:20-0500 Heart rate 74 /min Rachel Hill PA Work Phone: [facility] 03-10-2024 15:20-0500 Respiratory rate 16 /min Rachelgeorgette Mitchell PA Work Phone: [facility] 03-10-2024 15:20-0500 SaO2% (BldA) [Mass fraction] 98 % Rachel Stephen PA Work Phone: [facility] 03-10-2024 15:20-0500 Systolic blood pressure 102 mm[Hg] Rachel Stephen PA Work Phone: [facility] 03-01-2024 12:48-0500 Body height 162.6 cm Juany Lowe PA Work Phone: [facility] 03-01-2024 12:48-0500 Body mass index (BMI) [Ratio] 48.92 kg/m2 Juany Lowe PA Work Phone: [facility] 03-01-2024 12:48-0500 Body weight 129.28 kg Juany Lowe PA Work Phone: [facility] 03-01-2024 12:48-0500 Diastolic blood pressure 88 mm[Hg] Juany Lowe PA Work Phone: [facility] 03-01-2024 12:48-0500 Systolic blood pressure 140 mm[Hg] Juany Lowe PA Work Phone: [facility] 02-16-2024 11:18-0500 Body height 162.6 cm Adelaida Carrion NP Work Phone: [facility] 02-16-2024 11:18-0500 Body mass index (BMI) [Ratio] 50.77 kg/m2 Adelaidamonse Sousaholz [employer] TE[employer] Work Phone: [facility] 02-16-2024 11:18-0500 Body temperature 98.49 [degF] Adelaida Merryholz [employer] TE[employer] Work Phone: [facility] 02-16-2024 11:18-0500 Body weight 134.17 kg Adelaida Yinghholz [employer] TE[employer] Work Phone: [facility] 02-16-2024 11:18-0500 Diastolic blood pressure 82 mm[Hg] Adelaida Aichholz [employer] Work Phone: [facility] 02-16-2024 11:18-0500 Heart rate 69 /min Adelaida Merryholz [employer] Work Phone: [facility] 02-16-2024 11:18-0500 Respiratory rate 20 /min Adelaida Merryholz [employer] Work Phone: [facility] 02-16-2024 11:18-0500 SaO2% (BldA) [Mass fraction] 98 % Adelaida Yinghholz [employer] TE[employer] Work Phone: [facility] 02-16-2024 11:18-0500 Systolic blood pressure 122 mm[Hg] Adelaida Merryholz [employer] TE[employer] Work Phone: [facility] 01-28-2024 13:46-0400 Body height 162.6 cm Adelaida Merryholz [employer] Work Phone: [facility] 01-28-2024 13:46-0400 Body mass index (BMI) [Ratio] 48.99 kg/m2 Adelaida Yinghholz [employer] TE[employer] Work Phone: [facility] 01-28-2024 13:46-0400 Body temperature 98.71 [degF] Adelaida Merryholz [employer] Work Phone: [facility] 01-28-2024 13:46-0400 Body weight 129.46 kg Adelaida Yinghholz [employer] TE[employer] Work Phone: [facility] 01-28-2024 13:46-0400 Diastolic blood pressure 78 mm[Hg] Adelaida Aichholz [employer] Work Phone: [facility] 01-28-2024 13:46-0400 Heart rate 81 /min Adelaida Aichholz [employer] Work Phone: [facility] 01-28-2024 13:46-0400 Respiratory rate 18 /min Adelaida Aichholz [employer] Work Phone: [facility] 01-28-2024 13:46-0400 SaO2% (BldA) [Mass fraction] 99 % Adelaida Aichholz [employer] Work Phone: [facility] 01-28-2024 13:46-0400 Systolic blood pressure 110 mm[Hg] Adelaida Aichholz [employer] Work Phone: [facility] 01-04-2024 09:39-0400 Body height 162.6 cm Adelaida Aichholz [employer] Work Phone: [facility] 01-04-2024 09:39-0400 Body mass index (BMI) [Ratio] 48.75 kg/m2 Adelaida Aichholz [employer] Work Phone: [facility] 01-04-2024 09:39-0400 Body temperature 97.81 [degF] Adelaida Aichholz [employer] Work Phone: [facility] 01-04-2024 09:39-0400 Body weight 128.82 kg Adelaida Aichholz [employer] Work Phone: [facility] 01-04-2024 09:39-0400 Diastolic blood pressure 78 mm[Hg] Adelaida Aichholz [employer] Work Phone: [facility] 01-04-2024 09:39-0400 Heart rate 67 /min Adelaida Aichholz [employer] Work Phone: [facility] 01-04-2024 09:39-0400 Respiratory rate 19 /min Adelaida Aichholz [employer] Work Phone: [facility] 01-04-2024 09:39-0400 SaO2% (BldA) [Mass fraction] 99 % Adelaida Sousabob [employer] Work Phone: [facility] 01-04-2024 09:39-0400 Systolic blood pressure 116 mm[Hg] Adelaida Sousabob [employer] Work Phone: [facility] 12-09-2023 10:14-0400 Body height 162.6 cm Juany Gillmor [employer] Work Phone: [facility] 12-09-2023 10:14-0400 Body mass index (BMI) [Ratio] 48.92 kg/m2 Juany Samanthamor [employer] Work Phone: [facility] 12-09-2023 10:14-0400 Body weight 129.28 kg Juany Samanthamor [employer] TE[employer] Work Phone: [facility] 12-09-2023 10:14-0400 Diastolic blood pressure 78 mm[Hg] Juany Gillmor [employer] Work Phone: [facility] 12-09-2023 10:14-0400 SaO2% (BldA) [Mass fraction] 97 % Juany Samanthamor [employer] TE[employer] Work Phone: [facility] 12-09-2023 10:14-0400 Systolic blood pressure 122 mm[Hg] Juany Samanthamor [employer] TE[employer] Work Phone: [facility] 12-08-2023 15:24-0400 Body height 162.6 cm Sonam Clevelandnagel [employer] TE[employer] Work Phone: [facility] 12-08-2023 15:24-0400 Body mass index (BMI) [Ratio] 48.92 kg/m2 Sonam Windnagel [employer] TE[employer] Work Phone: [facility] 12-08-2023 15:24-0400 Body weight 129.28 kg Sonam Windnagel [employer] Work Phone: [facility] 12-08-2023 15:24-0400 Diastolic blood pressure 77 mm[Hg] Sonam Windnagel [employer] Work Phone: [facility] 12-08-2023 15:24-0400 Heart rate 72 /min Sonam Brown [employer] Work Phone: [facility] 12-08-2023 15:24-0400 Systolic blood pressure 134 mm[Hg] Sonam Brown [employer] Work Phone: [facility] 05-18-2023 16:30-0500 Body height 162.6 cm Adelaida Kelsiez [employer] Work Phone: [facility] 05-18-2023 16:30-0500 Body mass index (BMI) [Ratio] 47.89 kg/m2 Adelaida Merryholz [employer] Work Phone: [facility] 05-18-2023 16:30-0500 Body temperature 97.3 [degF] Adelaida Kelsiez [employer] TE[employer] Work Phone: [facility] 05-18-2023 16:30-0500 Body weight 126.55 kg Adelaida Yinghholz [employer] TE[employer] Work Phone: [facility] 05-18-2023 16:30-0500 Diastolic blood pressure 80 mm[Hg] Adelaida Yinghholz [employer] Work Phone: [facility] 05-18-2023 16:30-0500 Heart rate 76 /min Adelaida Yinghholz [employer] Work Phone: [facility] 05-18-2023 16:30-0500 Respiratory rate 19 /min Adelaida Yinghholz [employer] Work Phone: [facility] 05-18-2023 16:30-0500 SaO2% (BldA) [Mass fraction] 97 % Adelaida Yinghholz [employer] Work Phone: [facility] 05-18-2023 16:30-0500 Systolic blood pressure 134 mm[Hg] Adelaida Aichholz [employer] TE[employer] Work Phone: [facility] 03-23-2023 12:10-0500 Diastolic blood pressure 98 mm[Hg] Adelaida Aichholz Work Phone: [place] 03-23-2023 12:10-0500 Heart rate 76 /min Adelaida Sousaholz Work Phone: [place] 03-23-2023 12:10-0500 Respiratory rate 18 /min Adelaida Sousaholz Work Phone: [place] 03-23-2023 12:10-0500 SaO2% (BldA) [Mass fraction] 99 % Adelaida Sousaholnena Work Phone: [place] 03-23-2023 12:10-0500 Systolic blood pressure 162 mm[Hg] Adelaida Sousaholz Work Phone: [place] 03-23-2023 10:53-0500 Body height 162.56 cm Adelaida Carrion Work Phone: [place] 03-23-2023 10:53-0500 Body weight 125.64 kg Adelaida Carrion Work Phone: [place] 12-19-2022 14:55-0400 Body height 162.56 cm Rosemary Marita Other [employer] Other 12-19-2022 14:55-0400 Body mass index (BMI) [Ratio] 47.85 kg/m2 Rosemary Kirkland Other [employer] Other 12-19-2022 14:55-0400 Body temperature 97.8 [degF] Rosemary Kirkland Other [employer] Other 12-19-2022 14:55-0400 Body weight 126.46 kg Rosemary Kirkland Other [employer] Other 12-19-2022 14:55-0400 Respiratory rate 20 /min Rosemary Kirkland Other [facility] [employer] Other 12-19-2022 14:55-0400 SaO2% (BldA) [Mass fraction] 95 % Rosemary Marita Other [email or web address] [facility] [employer] Other 11-20-2022 13:12-0400 Body temperature 97.7 [degF] Adelaida Aichholz Work Phone: [place] 11-20-2022 13:12-0400 SaO2% (BldA) [Mass fraction] 96 % Adelaida Aichholz Work Phone: [place] 11-20-2022 07:44-0400 Diastolic blood pressure 90 mm[Hg] Adelaida Aichholz Work Phone: [place] 11-20-2022 07:44-0400 Heart rate 103 /min Adelaida Aichholz Work Phone: [place] 11-20-2022 07:44-0400 Systolic blood pressure 152 mm[Hg] Adelaida Aichholz Work Phone: [place] 11-19-2022 20:00-0400 Respiratory rate 18 /min Adelaida Aichholz Work Phone: [place] 11-18-2022 15:18-0400 Body height 162.56 cm Adelaida Aichholz Work Phone: [place] 11-17-2022 09:00-0400 Body weight 122.92 kg Adelaida Aichholz Work Phone: [place] Encounters Encounter Date Encounter Type Care Provider Facility Start: 06-16-2024 ambulatory Eduardo Monk Facility:[place] Start: 06-14-2024 End: 06-14-2024 Refill Adelaida Aicbostonz [employer] Work Phone: [facility] Comment on [...] 05-12-2024 End: 05-12-2024 Bamboo flowsheet Adelaida Carrion [employer] Work Phone: [facility] Start: 05-12-2024 [...] End: 04-12-2024 Refill Juany REDDY Work Phone: [facility] [place] [address] Comment on above: Transient alteration of awareness (Primary Dx); Restless leg Start: 04-07-2024 End: 04-07-2024 Patient encounter procedure David Foster PhD Work Phone: [facility] Comment on above: Metabolic encephalop athy (Primary Dx); Memory change; Altered mental status, unspecified altered mental status type; Concentration deficit; PTSD (post-traumatic stress disorder) (CMS/HCC); Bipolar affective disorder, remission status unspecified (CMS/HCC); Family history of dementia; 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[facility]/HCC); OSMANY (obstructive sleep apnea) Start: 04-07-2024 End: 04-07-2024 ambulatory ADELAIDA CARRION Not Available Start: 03-22-2024 End: 03-22-2024 ambulatory RACHEL MITCHELL Not Available Start: 03-16-2024 End: 03-16-2024 Bamboo flowsheet Adelaida Carrion [employer] Work Phone: [facility] Start: 03-16-2024 End: 03-16-2024 Bamboo flowsheet Adelaida Carrion [employer] Work Phone: [facility] Start: 03-16-2024 End: 03-16-2024 Office outpatient visit 25 minutes Adelaida Carrion [employer] Work Phone: [facility] Comment on [...] End: 03-16-2024 Telephone encounter David Norman MA [facility] Start: 03-14-2024 End: 03-14-2024 [employer] David Foster PhD Work Phone: [facility] Start: 03-14-2024 End: 03-14-2024 [employer] Market[employer]abela Foster PhD Work Phone: [facility] Start: 03-14-2024 End: 03-14-2024 ambulatory DAVID FOSTER Not Available Start: 03-14-2024 End: 03-14-2024 Patient encounter procedure David Foster PhD Work Phone: [facility] Comment on above: Altered mental statu s, unspecified altered mental status type (Primary Dx); Memory change; Concentration deficit; 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 (CMS/HCC); PTSD (post-traumatic stress disorder) (CMS/HCC); Bipolar affective disorder, remission status unspecified (CMS/HCC); Family history of dementia Start: 03-10-2024 End: 03-10-2024 Office outpatient visit 25 minutes Rachel REDDY Work Phone: [facility] Comment on above: Altered mental statu s, unspecified altered mental status type (Primary Dx); Restless leg; 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CMS/HCC); OSMANY (obstructive sleep apnea) Start: 03-10-2024 End: 03-10-2024 ambulatory RACHEL MITCHELL Not Available Start: 03-03-2024 End: 03-07-2024 Evaluation and management of inpatient Adelaida Carrion Facility:[place] Start: 03-02-2024 End: 03-04-2024 Clinisync Result Encounter Generic External Data Provider [facility] External Department Unsolicited Start: 03-02-2024 End: 03-04-2024 Clinisync Result Encounter Generic External Data Provider [facility] External Department Unsolicited Start: 03-02-2024 End: 03-02-2024 Refill Adelaida Carrion [employer] Work Phone: [facility] Comment on [...] Start: 02-28-2024 End: 02-29-2024 Refill Adelaida Carrion [employer] TE[employer] Work Phone: [facility] Comment on above: Allergic rhinitis, u nspecified Start: 02-24-2024 End: 02-24-2024 Refill Adelaida Carrion [employer] TE[employer] Work Phone: [facility] Comment on above: Essential (primary) [...] End: 02-16-2024 Patient encounter procedure Adelaida Aichholz [employer] TE[employer] Work Phone: [facility] Start: 02-16-2024 End: 02-16-2024 Periodic preventive med est patient 40-64yrs Adelaida Carrion [employer] TE[employer] Work Phone: [facility] Comment on above: Well woman exam with routine gynecological exam (Primary Dx); Morbid obesity (CMS/HCC) Start: 02-16-2024 End: 02-16-2024 ambulatory ADELAIDA SHEYLA Not Available Start: 02-04-2024 End: 02-04-2024 Refill Sonamolvin Brown [employer] TE[employer] Work Phone: [facility] [place] [address] Comment on above: Restless leg Start: 01-28-2024 End: 01-28-2024 Bamboo flowsheet Adelaida Carrion [employer] TE[employer] Work Phone: [facility] Start: 01-28-2024 End: 01-28-2024 Bamboo flowsheet Adelaiad Sheyla [employer] Work Phone: [facility] Start: 01-28-2024 End: 01-28-2024 Office outpatient visit 15 minutes Adelaida Carrion [employer] Work Phone: [facility] Comment on [...] End: 01-05-2024 Clinisync Result Encounter Adelaida Carrion [employer] Work Phone: [facility] External Department Unsolicited Start: 01-05-2024 End: 01-05-2024 Clinisync Result Encounter Adelaida Sousabob [employer] TE[employer] Work Phone: [facility] External Department Unsolicited Start: 01-04-2024 End: 01-04-2024 Bamboo flowsheet Adelaida Iglesiasnena [employer] TESTER Work Phone: [facility] Start: 01-04-2024 End: 01-04-2024 Bamboo flowsheet Adelaida Sousabob [employer] TE[employer] Work Phone: [facility] Start: 01-04-2024 End: 01-04-2024 Office outpatient visit 25 minutes Adelaida Sousabob [employer] TE[employer] Work Phone: [facility] Comment on above: Bilateral lower extr emity edema (Primary Dx); Essential (primary) hypertension (CMS/HCC); Allergic rhinitis, unspecified; OSMANY (obstructive sleep apnea); Primary hypertension (CMS/HCC); Morbid obesity (CMS/HCC) Start: 01-04-2024 End: 01-04-2024 ambulatory ADELAIDA SOUSAKUSHNena Not Available Start: 12-30-2023 End: 12-30-2023 Refill Adelaida Carrion [employer] Work Phone: [facility] Comment on above: Lower extremity elis a Start: 12-09-2023 End: 12-09-2023 Office outpatient visit 25 minutes Juany Caballero [employer] TE[employer] Work Phone: [facility] [facility] [employer] [address] Comment on above: OSMANY (obstructive sle ep apnea) (Primary Dx); Restless leg Start: 12-09-2023 End: 12-09-2023 ambulatory JUANY NEIL Not Available Start: 12-08-2023 End: 12-08-2023 ambulatory SONAM Keiry BROWN Not Available Start: 12-08-2023 End: 12-08-2023 Office outpatient visit 25 minutes Sonam Brown [employer] TE[employer] Work Phone: [facility] [employer] [address] Comment on above: 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CMS /HCC) (Primary Dx); Restless leg; Metabolic encephalopathy Start: 12-08-2023 End: 12-08-2023 Bamboo flowsheet Sonam Brown [employer] TESTER Work Phone: [facility] Start: 12-08-2023 End: 12-08-2023 Bamboo flowsheet Sonam C Kevin [employer] TESTER Work Phone: [facility] Start: 11-27-2023 End: 11-27-2023 Refill Adelaida Aichholz [employer] TE[employer] Work Phone: [facility] Comment on [...] End: 06-29-2023 ambulatory Syeda Mancuso MD Facility:[facility] Start: 05-21-2023 Refill Adelaida Aichholz [employer] TE[employer] Work Phone: [facility] Comment on above: Acute cystitis with hematuria (Primary Dx) Start: 05-18-2023 End: 05-18-2023 Office outpatient visit 25 minutes Adelaida Aichholz [employer] TE[employer] Work Phone: [facility] Comment on [...] encounter Start: 05-18-2023 Bamboo flowsheet Adelaida Carrion [employer] TE[employer] Work Phone: [facility] Start: 05-18-2023 Bamboo flowsheet Adelaida Sousabob [employer] TE[employer] Work Phone: [facility] Start: 05-18-2023 End: 05-18-2023 Patient encounter procedure Adelaida Sousakushnena [employer] TESTER Work Phone: [facility] Start: 03-23-2023 End: 03-23-2023 Admission to same day surgery center Adelaida Sousabob Work Phone: [facility] Work Phone: Start: 03-23-2023 End: 03-23-2023 ambulatory Adelaida Mcnair Yingsherinekushnena Work Phone: [facility] Work Phone: Start: 02-12-2023 End: 02-12-2023 ambulatory Jace Graham Other [employer] Other Start: 02-12-2023 Telephone encounter Jace CORADO [facility] [employer] [facility] Start: 12-19-2022 End: 12-19-2022 ambulatory Rosemary Kirkland Other [employer] Other Start: 12-19-2022 Office outpatient ne w 10 minutes Rosemary Kirkland [facility] Start: 11-17-2022 End: 11-20-2022 Evaluation and management of inpatient Adelaida Carrion Work Phone: [facility] Work Phone: Start: 09-04-2022 ambulatory ARIAN JOHNSON . Facili ty:[facility] Start: 08-26-2022 ambulatory NARENDRANATH LAKSHMIPATHY . 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 Facility:[facility] Start: 01-01-2022 End: 01-02-2022 ambulatory BRIDGETTE MACDEO Facility:[facility] Start: 12-16-2021 End: 12-16-2021 ambulatory LIVIER [...] End: 07-03-2018 Patient encounter procedure SUKI EBSANDRA Facility:[facility] Procedures Date Procedure Procedure Detail Performing Clinician Start: 03-02-2024 BLOOD CULTURE 1 Generic External Data Provider Start: 02-16-2024 IGP,APTIMA HPV,AGE GDLN Adelaida Carrion [employer] TE[employer] Work Phone: Start: 01-28-2024 Urnls dip stick/tabl et rgnt non-auto w/o micrscp Adelaida Carrion [employer] TE[employer] Work Phone: Start: 01-21-2024 MHPT CULT,URINE Generic External Data Provider Start: 01-05-2024 ALL BASIC METABOLIC PANEL Adelaida Carrion [employer] Work Phone: Start: 09-18-2023 Mammography Adelaida ramos [employer] TE[employer] Work Phone: Start: 03-23-2023 Screening colonoscopy L oneal Sheyla Work Phone: Start: 03-23-2023 Colonoscopy Adelaida ramos [employer] TE[employer] Work Phone: Start: 09-15-2022 Mammography Adelaida ramos [employer] TE[employer] Work Phone: Start: 08-28-2022 Microscopic observat ion [Identifier] in Cervix by Cyto stain Adelaida Carrion [employer] TE[employer] Work Phone: Start: 07-02-2018 ANESTH KNEE AREA [...] [facility] [address] [place] [address] Adelaida Carrion, BRIANA [address] [place] [id number] [facility] Start: 08-11-2024 End: 08-11-2024 Patient encounter procedure 08/11/2024 10:30 AM EDT Office Visit [facility] [address] [place] [address] Adelaida Carrion NP [address] [place] [phone] [facility] Start: 07-26-2024 End: 07-26-2024 Patient encounter procedure 07/26/2024 11:00 AM EDT Office Visit [place] [address] [place] [phone] Juany Leggett PA [address] [place], [place] [id number] [place] Start: 06-22-2024 End: 06-22-2024 Patient encounter procedure 06/22/2024 11:20 AM EDT Office Visit [facility] [place] [address] [place] [phone] Juany Leggett PA [address] [place], [place] [id number] [facility] [place] [address] [facility] Start: 06-15-2024 End: 06-15-2024 Patient encounter procedure 06/15/2024 9:20 AM EDT Office Visit [facility] [address] [place] [address] Adelaida Carrion, BRIANA [address] [place] [address] [facility] Start: 05-24-2024 End: 05-24-2024 [facility] on above: Arrived Start: 05-18-2024 Medicare Annual Well ness (AWV) Medicare Annual Wellness (AWV) [facility] Start: 05-12-2024 End: 05-12-2024 Patient encounter procedure [facility] Comment on above: Primary hypertension (CMS/HCC) (Primary Dx); Chronic kidney disease, stage 3a (HCC) (CMS/HCC); Morbid (severe) obesity due to excess calories (CMS/HCC); Body mass index (BMI) 45.0-49.9, adult (CMS/HCC); OSMANY (obstructive sleep apnea); Hemiparesis, right (CMS/HCC); Gastroesophageal reflux disease, unspecified whether esophagitis present; Metabolic encephalopathy Start: 04-07-2024 End: 04-07-2024 Patient encounter procedure 04/07/2024 12:30 PM EST Office Visit [facility] [address] [phone] [facility] Start: 04-04-2024 End: 04-04-2024 Patient encounter procedure 04/04/2024 1:20 PM EST Office Visit [facility] [address] [place] [address] Adelaida Carrion NP [address] [place] [phone] [facility] Start: 03-22-2024 End: 03-22-2024 Clinical Support 03/22/2024 10:00 AM EST Clinical Support [facility] [place] [facility] [address] [address] [place] [phone] [facility] [address] Start: 03-16-2024 End: 03-16-2024 Patient encounter procedure [facility] Comment on above: Metabolic encephalop athy (Primary Dx); OSMANY (obstructive sleep apnea); Morbid obesity (CMS/HCC); Bilateral lower extremity edema; Tobacco dependence; Bipolar disorder with severe depression (CMS/HCC); At risk for polypharmacy; Anxiety Start: 03-14-2024 End: 03-14-2024 Patient encounter procedure 03/14/2024 10:00 AM EST Office Visit [facility] [address] [place] [address] David Fsoter, PhD [address] [place], [place] [id number] [facility] Start: 03-11-2024 End: 03-11-2025 EEG 2 Hour Routine EEG 2 Hour Routine Neurology Routine Altered mental status, unspecified altered mental status type Expected: 03/11/2024 (Approximate), Expires: 03/11/2025 [facility] Work Phone: Comment on above: Expected: 03/11/2024 (Approximate), Expires: 03/11/2025 Start: 03-10-2024 End: 03-10-2024 Patient encounter procedure 03/10/2024 3:40 PM EST Office Visit [facility] [address] [place] [phone] Rachel Mitchell PA [address] [place] [address] [facility] Start: 03-01-2024 End: 03-01-2024 Patient encounter procedure 03/01/2024 12:00 PM EST Office Visit [facility] [place] [facility] [address] [place] [address] Juany Leggett PA [address] [place] [address] [facility] [place] [facility] Start: 02-29-2024 End: 02-29-2024 Patient encounter procedure 02/29/2024 2:40 PM EST Office Visit [facility] [place] [facility] [address] [place] [address] Sonam Brown, [employer]OD PRODUCTS TESTER [address] [place] [address] [facility] [place] [facility] Start: 02-16-2024 End: [...] procedure 02/16/2024 11:30 AM EST [facility] [address] [place] [address] Adelaida Carrion NP [address] [place] [address] [facility] Start: 02-04-2024 Influenza vaccination Influenza Vacc ine (#1) [facility] Comment on above: Postponed from 12/05 (Patient Does Not Have Time) Start: 01-28-2024 End: 01-27-2025 URINARY TRACT INFECTION (HTRX) URINARY TRACT INFECTION (HTRX) Lab Routine Acute cystitis without hematuria Expected: 01/28/2024 (Approximate), Expires: 01/27/2025 [facility] Work Phone: Comment on above: Expected: 01/28/2024 (Approximate), Expires: 01/27/2025 Start: 01-28-2024 End: 01-28-2024 Patient encounter procedure [facility] Comment on above: Tobacco dependence [...] [place] [address] [place] [address] Juany Caballero NP [address] [place] [facility] Start: 12-08-2023 End: 12-08-2023 Patient encounter procedure 12/08/2023 3:20 PM EDT Office Visit [facility] [place] [facility] [address] [place] [address] Sonam Brown NP [address] [place], [place] [id number] [facility] [place] Start: 09-16-2023 Screening for malign ant neoplasm of breast Mammogram [facility] Start: 08-17-2023 End: 08-17-2023 Patient encounter procedure 08/17/2023 9:20 AM EDT Office Visit [facility] [address] [place] [phone] Adelaida Carrion NP [address] [place] [phone] [facility] Start: 05-22-2023 End: 05-22-2023 Patient encounter procedure 05/22/2023 8:45 AM EST Office Visit [facility] [address] [place] [address] Travon Hines PA [address] [facility] [address] [place] [address] [facility] Start: 05-18-2023 End: 05-18-2023 Patient encounter procedure 05/18/2023 4:30 PM EST Office Visit [facility] [address] [place] [phone] Adelaida Carrion NP [address] [place] [address] Arrived [facility] Comment on above: Arrived Start: 05-18-2023 End: 05-18-2024 XR Hip - left 3 Views XR hip left 2 or 3 views Imaging Routine Left hip pain Expected: 05/18/2023 (Approximate), Expires: 05/18/2024 [facility] Work Phone: Comment on above: Expected: 05/18/2023 (Approximate), Expires: 05/18/2024 Start: 03-23-2023 [place] Start: 11-20-2022 [place] Start: 11-18-2022 Referral to clinical associate professor of psychology [place] Start: 11-17-2022 Hospital admission [facility] Start: 11-17-2022 [place] Start: 12-06-1991 Screening for malign ant neoplasm of cervix HPV/Cotest [facility] Start: 1960 Medicare Annual Well ness (AWV) Medicare Annual Wellness (AWV) [facility] Start: 1960 Screening for malign ant neoplasm of colon [facility] BLOOD CULTURE 1 BLOOD CULTURE 1 Lab Routine 03/02/2024 3:20 AM EST [facility] Patient Education [facility] Work Phone: Patient referral [facility] Work Phone: [facility] Immunizations Immunization Date Immunization Notes Care Provider Fa hilda 01-28-2024 Influenza, injectabl e, Madin Sabattus Canine Kidney, preservative free, quadrivalent Adelaida Aichholz [employer] Work Phone: [facility] 08-17-2023 zoster vaccine recombinant Adelaida Aichholz [employer] Work Phone: [facility] 02-13-2023 influenza, injectabl e, quadrivalent, preservative free Adelaida Aichholz [employer] Work Phone: [facility] 02-13-2023 SARS-COV-2 (COVID-19 ) vaccine, mRNA, spike protein, LNP, PF, 50 mcg/0.5 mL Adelaida Aichholz [employer] Work Phone: [facility] 02-13-2023 influenza virus vaccine, unspecified formulation Adelaida Aichholz [employer] Work Phone: [facility] 02-19-2022 diphtheria, tetanus toxoids and pertussis vaccine Adelaida Aichholz [employer] Work Phone: [facility] 03-02-2021 Moderna SARS-CoV-2 Vaccination Adelaida Aichholz [employer] Work Phone: [facility] 08-24-2020 Moderna SARS-CoV-2 Vaccination Adelaida Aichholz [employer] TE[employer] Work Phone: [facility] 07-27-2020 Moderna SARS-CoV-2 Vaccination Adelaida Aichholz [employer] TE[employer] Work Phone: [facility] 05-28-2018 influenza, injectabl e, quadrivalent, preservative free Adelaida Aichholz Work Phone: [place] 2017 pneumococcal conjuga te vaccine, 13 valent Adelaida Aichholz [employer] Work Phone: [facility] Payers Date Payer Category Payer Medicare [id number] 2022 Self-pay [id number] 2022 Medicare [id number] 2022 Medicare (Managed Care) [facility] [id number] 2008 Unknown [id number] 1961 Unknown [id number] 2.16.840.1.811549.3.579.2 .647 1961 Unknown [id number] 2.16.840.1.959812.3.579.2 .593 1961 Unknown [id number] 2.16.840.1.502472.3.579.2 .593 1961 Unknown [id number] 2.16.840.1.560407.3.579.2 .593 1961 Unknown [id number] 2.16.840.1.719481.3.579.2 .593 1961 Unknown [id number] 2.16.840.1.234930.3.579.2 .593 1961 Unknown [id number] 2.16.840.1.342510.3.579.2 .593 1961 Unknown [id number] 2.16.840.1.782333.3.579.2 .593 1961 Unknown [id number] 2.16.840.1.574741.3.579.2 .593 1961 Unknown [id number] 2.16.840.1.303889.3.579.2 .593 1961 Unknown [id number] 2.16.840.1.619960.3.579.2 .593 1961 Unknown [id number] 2.16.840.1.562954.3.579.2 .593 1961 Unknown [id number] 2.16.840.1.825278.3.579.2 .593 1961 Unknown [id number] 2.16.840.1.870512.3.579.2 .593 1961 Unknown [id number] 2.16.840.1.739109.3.579.2 .593 1961 Unknown [id number] 2.16.840.1.749528.3.579.2 .593 1961 Unknown [id number] 2.16.840.1.255578.3.579.2 .593 1961 Unknown [id number] 2.16.840.1.015645.3.579.2 .593 1961 Unknown [id number] 2.16.840.1.148343.3.579.2 .593 1961 Unknown [id number] 2.16.840.1.645038.3.579.2 .593 1961 Unknown [id number] 2.16.840.1.742604.3.579.2 .593 1961 Unknown [id number] 2.16.840.1.047227.3.579.2 .593 1961 Unknown [id number] 2.16.840.1.963785.3.579.2 .593 1961 Unknown [id number] 2.16.840.1.458557.3.579.2 .593 1961 Unknown [id number] 2.16.840.1.678813.3.579.2 .593 1961 Unknown [id number] 2.16.840.1.811979.3.579.2 .1258 1961 Unknown [id number] 2.16.840.1.627624.3.579.2 .1258 1961 Unknown [id number] 2.16.840.1.216775.3.579.2 .1258 1961 Unknown [id number] 2.16.840.1.475257.3.579.2 .1258 1961 Unknown [id number] 2.16.840.1.927809.3.579.2 .1258 1961 Unknown [id number] 2.16.840.1.147326.3.579.2 .1258 1961 Unknown [id number] 2.16.840.1.338834.3.579.2 .1258 1961 Unknown [id number] 2.16.840.1.070470.3.579.2 .1258 1961 Unknown [id number] 2.16.840.1.929357.3.579.2 .1258 1961 Unknown [id number] 2.16.840.1.444601.3.579.2 .1258 1961 Unknown [id number] 2.16.840.1.907782.3.579.2 .1258 1961 Unknown [id number] 2.16.840.1.547251.3.579.2 .1258 1961 Unknown [id number] 2.16.840.1.394751.3.579.2 .1258 1961 Unknown [id number] 2.16.840.1.808107.3.579.2 .1258 1961 Unknown [id number] 2.16.840.1.015081.3.579.2 .1259 1961 Unknown [id number] 2.16.840.1.465222.3.579.2 .9 1961 Unknown [id number] 2.16.840.1.465479.3.579.2 .9 1961 Unknown [id number] 2.16.840.1.465834.3.579.2 .9 1961 Unknown [id number] 2.16.840.1.659055.3.579.2 .9 1961 Unknown [id number] 2.16.840.1.000659.3.579.2 .9 1961 Unknown [id number] 2.16.840.1.646545.3.579.2 .196 1961 Unknown [id number] 2.16.840.1.962192.3.579.2 .1961 Unknown [id number] 2.16.840.1.042993.3.579.2 .196 1961 Unknown [id number] 2.16.840.1.263397.3.579.2 .196 1959 Medicare [id number] 1959 Unknown [id number] Private Health Insurance [facility] [id number] Unknown [id number] 2.16.840.1.108770.3.579.2 .531 Unknown [id number] 2.16.840.1.562765.3.579.2 .531 Social History Date Type Detail Facility Start: 11-18-2022 End: 10-14-2023 Tobacco smoking status NHIS Ex-smoker (finding) [place] Start: 1960 Sex Assigned At Female [facility] Start: 03-25-2023 End: 08-16-2023 Sex Assigned At [facility] Start: 04-06-1976 End: 04-06-2016 History [...] Facility 11-20-2022 Functional status Patient at [facility] Work Phone: Mental Status Date Assessment Result Facility 11-20-2022 Cognitive function Cognitive Sta tus Patient is Progressing Toward [facility] Work Phone: Clinical Notes 10-03-2021 to 05-12-2024 VALERIE LU - 05/12/2024 10:00 AM ESTLisa Aichholz, BRIANA - 05/12/2024 10:00 AM ESTLisa Aichholz, [employer]OD [employer]ODUCTS TESTER - 05/12/2024 6:42 AM ESTLisa Aichholz, BRIANA [...] includes CVA. There is no history of CAD/WA, heart failure or PVD. GERD She reports [...] biotin 5 MG tablet Pt taking OTC ([employer]) Calcium Citrate-Vitamin D (CITRACAL + D PO) Pt taking OTC ([employer]) carvedilol (COREG) 12.5 mg, Oral, 2 times [...] Daily Magnesium 400 MG capsule Pt taking OTC([employer]) Melatonin 12 MG tablet 1 tablet, Nightly Multiple Vitamins-Minerals (BARIATRIC MULTIVITAMINS/IRON PO) Pt taking OTC ([employer]) nystatin (Mycostatin) 996675 UNIT/GM powder 1 application , 2 times [...] Anxiety 05/18/2023 Bipolar disorder with severe depression ([facility]) 05/18/2023 Brain lesion Brain vascular malformation Chronic pain disorder Closed fracture of patella 02/04/2018 Colon polyps Constipation Degenerative cervical disc Degenerative lumbar disc Depression ([facility]) 05/18/2023 Diastolic dysfunction Dizziness 05/18/2023 Dysphagia Fibromyalgia Fibromyalgia Gastrocnemius equinus GERD (gastroesophageal reflux disease) Heart murmur Hematoma of right breast Hemiparesis ([facility]) Hemiparesis, right ([facility]) Hemorrhoid int/external hemorrhoids Hiatal hernia Iron deficiency Left foot pain 03/25/2023 Lower extremity edema Mood disorder ([facility]) mixed mood disorder OSMANY (obstructive sleep apnea) Osteoporosis ([facility]) Overactive bladder Pre-diabetes Primary hypertension ([facility]) 03/25/2023 PTSD (post-traumatic stress disorder) ([facility]) Restless leg Right knee pain Right sided weakness S/P bariatric surgery Shingles Slurred speech Stroke ([facility]) 2018 Tenosynovitis, de Quervain Thoracic [...] that manages your OSMANY: Daniela Hemiparesis, right ([facility]) Stable with this from prior [...] spironolactone (Aldactone) 50 MG tablet Primary hypertension ([facility]) - Primary Please check blood pressure daily and record DASH diet Limit caffeine Take medication as directed Contact office if chest pain, pressure, dizziness, shortness of breath, swelling legs Recommend slow position changes Current meds: amlodipine, losartan Chronic kidney disease, stage 3a (HCC) ([facility]) Monitor labs at minimum every year Body mass index (BMI) 45.0-49.9, adult ([facility]) Other Visit Diagnoses Essential (primary) hypertension ([facility]) Relevant Medications amLODIPine (Norvasc) 10 MG tablet [...] Morbid (severe) obesity due to excess calories ([facility]) Discussed with patient their BMI (actual, verses recommended). We have also discussed lifestyle modifications: attempts to perform physical activity as chronic conditions allow, also to monitor dietary intake: increasing protein/fruits/veggies and lowering carb intake (unless contraindicated). Limit sodas, juices, and sugary drinks. Has had bariatric surgeries in the past Associated Problem(s): Chronic kidney disease, stage 3a (HCC) ([facility]) Monitor labs at minimum every year Associated Problem(s): GERD (gastroesophageal reflux disease) Recommendations: freq small meals, nothing to eat or drink at least 2 hours prior to bed, limit caffeine, alcohol, as well as spicy foods Meds to limit or avoid if possible: NSAIDS Elevate HOB if possible Current meds: omeprazole Associated Problem(s): Primary hypertension ([facility]) Please check blood pressure daily [...] from prior stroke documented in this encounter [facility] 05-12-2024 Instructions Adelaida Carrion NP - 05/12/2024 10:00 AM EST No changes in meds documented in this encounter [facility] 04-12-2024 Telephone encounter Note 03/10/2024 Continue Gabapentin 300 mg BID for RLS. Continue clonazepam 0.5mg PO BID for RLS. This was decreased during recent hospitalization Continue Vimpat 50mg PO BID for seizure prevention [facility] 04-12-2024 Miscellaneous Notes 03/10/2024 Continue Gabapentin 300 mg BID for RLS. Continue clonazepam 0.5mg PO BID for RLS. This was decreased during recent hospitalization Continue Vimpat 50mg PO BID for seizure prevention documented in this encounter [facility] 04-07-2024 History of Present illness [...] performance and score on it. Admitted to [facility] from the [facility] on 08/24/2023 with acute respiratory failure and confusion thought to be secondary to metabolic encephalopathy. LTME in August 2023 negative. [place] [facility] [place] for severe [...] any history of alcohol/substance abuse. Reformed smoker. [place] language [place]a. Reported relocating from [place] to [place] in 2011. Completed a bachelor's degree. 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 Currently on disability. Resides with of 26 years along with her son, grandson, and 2 dogs. Has 2 children from a prior relationship. MEDICAL HISTORY/MEDICATION: MEDICATIONS: Current Outpatient Medications Medication Instructions amLODIPine (NORVASC) 10 mg, Oral, Daily biotin 5 MG tablet Pt taking OTC ([employer]) Calcium Citrate-Vitamin D (CITRACAL + D PO) Pt taking OTC ([employer]) carvedilol (COREG) 12.5 mg, Oral, 2 times [...] Daily Magnesium 400 MG capsule Pt taking [employer]) Melatonin 12 MG tablet 1 tablet, Oral, Nightly Multiple Vitamins-Minerals (BARIATRIC MULTIVITAMINS/IRON PO) Pt taking OTC ([employer]) nystatin (Mycostatin) 157973 UNIT/GM powder 1 application , 2 times [...] design >16th %ile. Motor/Speed of Processing: Right-handed. Side Show Entertainer strength 16th %ile with right-hand, 38th %ile [...] Learning of a word list 79th %ile (5-80-07-12-12), delayed recall 93rd %ile. Recognition discriminability 93rd [...] Please contact me with any questions at [phone]. documented in this encounter [facility] 03-16-2024 History of Present illness Narrative Associated Problem(s): Right bundle branch block (RBBB) determined by electrocardiography At this point I will look at her past EKG's, She has had ECHO in past No symptoms, at this time I do not think that further testing is needed Pt is having a memory test done on apr 07 in [place] Pt is anxious and afraid-pt father had dementia Spironolactone pt is asking for 50mg instead of 25mg Images from the original note were not included. Michelle Be is a 63 y.o. female presents with chief complaint of Anxiety HPI: Here for hospital follow up: AMS She was [place] [facility] was seen by Neurology [...] biotin 5 MG tablet Pt taking OTC ([employer]) Calcium Citrate-Vitamin D (CITRACAL + D PO) Pt taking OTC ([facility]) carvedilol (COREG) 12.5 mg, Oral, 2 times [...] Daily Magnesium 400 MG capsule Pt taking O[employer]) Melatonin 12 MG tablet 1 tablet, Oral, Nightly Multiple Vitamins-Minerals (BARIATRIC MULTIVITAMINS/IRON PO) Pt taking OTC ([employer]) nystatin (Mycostatin) 409419 UNIT/GM powder 1 application , 2 times [...] Anxiety 05/18/2023 Bipolar disorder with severe depression ([facility]) 05/18/2023 Brain lesion Brain vascular malformation Chronic pain disorder Closed fracture of patella 02/04/2018 Colon polyps Constipation Degenerative cervical disc Degenerative lumbar disc Depression ([facility]) 05/18/2023 Diastolic dysfunction Dizziness 05/18/2023 Dysphagia Fibromyalgia Fibromyalgia Gastrocnemius equinus GERD (gastroesophageal reflux disease) Heart murmur Hematoma of right breast Hemiparesis ([facility]) Hemiparesis, right ([facility]) Hemorrhoid int/external hemorrhoids Hiatal hernia Iron deficiency Left foot pain 03/25/2023 Lower extremity edema Mood disorder ([facility]) mixed mood disorder OSMANY (obstructive sleep apnea) Osteoporosis ([facility]) Overactive bladder Pre-diabetes Primary hypertension ([facility]) 03/25/2023 PTSD (post-traumatic stress disorder) ([facility]) Restless leg Right knee pain Right sided weakness S/P bariatric surgery Shingles Slurred speech Stroke ([facility]) 2018 Tenosynovitis, de Quervain Thoracic [...] to have evaluation documented in this encounter [facility] 03-16-2024 Instructions Adelaida Carrion NP - 03/16/2024 10:00 AM EST Spironolactone: I discontinued the 25mg script for this, sent a new script to [facility], for a 50mg pill, you will take 1 pill daily Memory testing in Apr 2024 Follow up with me in early May, sooner if needed documented in this encounter [facility] 03-16-2024 Telephone encounter Note Yep, sent to [facility]. [facility] 03-16-2024 Miscellaneous Notes Yep, sent to [facility] [facility]. Patient calls and states that hospital lowered her requip to 2 mg at bed time. Okay to send as new dosage? documented in this encounter [facility] 03-15-2024 Telephone encounter Note Patient calls and states that hospital lowered her requip to 2 mg at bed time. Okay to send as new dosage? [facility] 03-14-2024 History of Present illness [...] performance and score on it. Admitted to [facility] from the [facility] on 08/24/2023 with acute respiratory failure and confusion thought to be secondary to metabolic encephalopathy. Previous LTME in August 2023 negative. Recently evaluated [place] [facility] [place] for severe [...] any history of alcohol/substance abuse. Reformed smoker. [place] language Sin[place]a. Reported relocating from [place] to [place] in 2011. Completed a bachelors degree. Previously [...] mood disorder OSMANY (obstructive sleep apnea) Osteoporosis ([facility]) Overactive bladder Pre-diabetes Primary hypertension ([facility]) 03/25/2023 PTSD (post-traumatic stress disorder) ([facility]) Restless leg Right knee pain Right sided weakness S/P bariatric surgery Shingles Slurred speech Stroke ([facility]) 2018 Tenosynovitis, de Quervain Thoracic back pain, unspecified back pain laterality, unspecified chronicity Tobacco dependence Vertigo, benign paroxysmal Yeast infection of the skin 05/18/2023 MEDICATIONS: Current Outpatient Medications Medication Instructions amLODIPine (NORVASC) 10 mg, Oral, Daily biotin 5 MG tablet Pt taking OTC ([employer]) Calcium Citrate-Vitamin D (CITRACAL + D PO) Pt taking OTC ([employer]) carvedilol (COREG) 12.5 mg, Oral, 2 times [...] Daily Magnesium 400 MG capsule Pt taking OTC([employer]) Melatonin 12 MG tablet 1 tablet, Oral, Nightly Multiple Vitamins-Minerals (BARIATRIC MULTIVITAMINS/IRON PO) Pt taking OTC ([employer]) nystatin (Mycostatin) 618271 UNIT/GM powder 1 application , Topical, 2 [...] Please contact me with any questions at [phone]. documented in this encounter [facility] 02-16-2024 History of Present illness [...] biotin 5 MG tablet Pt taking OTC ([employer]) Calcium Citrate-Vitamin D (CITRACAL + D PO) Pt taking OTC ([employer]) carvedilol (COREG) 12.5 mg, Oral, 2 times [...] Daily Magnesium 400 MG capsule Pt taking OTC([employer]) Melatonin 12 MG tablet 1 tablet, Oral, Nightly Multiple Vitamins-Minerals (BARIATRIC MULTIVITAMINS/IRON PO) Pt taking OTC ([employer]) nystatin (Mycostatin) 218881 UNIT/GM powder 1 application , Topical, 2 [...] Anxiety 05/18/2023 Bipolar disorder with severe depression ([facility]) 05/18/2023 Brain lesion Brain vascular malformation Chronic pain disorder Closed fracture of patella 02/04/2018 Colon polyps Constipation Degenerative cervical disc Degenerative lumbar disc Depression ([facility]) 05/18/2023 Diastolic dysfunction Dizziness 05/18/2023 Dysphagia Fibromyalgia Fibromyalgia Gastrocnemius equinus GERD (gastroesophageal reflux disease) Heart murmur Hematoma of right breast Hemiparesis ([facility]) Hemiparesis, right ([facility]) Hemorrhoid int/external hemorrhoids Hiatal hernia Iron deficiency Left foot pain 03/25/2023 Lower extremity edema Mood disorder ([facility]) mixed mood disorder OSMANY (obstructive sleep apnea) Osteoporosis ([facility]) Overactive bladder Pre-diabetes Primary hypertension ([facility]) 03/25/2023 PTSD (post-traumatic stress disorder) ([facility]) Restless leg Right knee pain Right sided weakness S/P bariatric surgery Shingles Slurred speech Stroke ([facility] [facility] 2018 Tenosynovitis, de Quervain Thoracic [...] nursing note reviewed. 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 Constitutional: General: She is not [...] chronic conditions allow documented in this encounter [facility] 01-28-2024 History of Present illness [...] ER fu for UTI and dehydration. [facility] HPI Was sent home on Bactrim. Feels completely fine now, no fever, chills, malodorous urine, no constipation diarrhea or abd pain SUBJECTIVE: MEDICATIONS: Current Outpatient Medications Medication Instructions amLODIPine (NORVASC) 10 mg, Oral, Daily biotin 5 MG tablet Pt taking OTC ([employer]) Calcium Citrate-Vitamin D (CITRACAL + D PO) Pt taking OTC ([employer]) carvedilol (COREG) 12.5 mg, Oral, 2 times [...] Daily Magnesium 400 MG capsule Pt taking OTC([employer]) Melatonin 12 MG tablet 1 tablet, Oral, Nightly Multiple Vitamins-Minerals (BARIATRIC MULTIVITAMINS/IRON PO) Pt taking OTC ([employer]) nystatin (Mycostatin) [id number] UNIT/GM powder 1 application , Topical, 2 [...] Anxiety 05/18/2023 Bipolar disorder with severe depression ([facility]/HCC) 05/18/2023 Brain lesion Brain vascular malformation Chronic pain disorder Closed fracture of patella 02/04/2018 Colon polyps Constipation Degenerative cervical disc Degenerative lumbar disc Depression (CMS/HCC) 05/18/2023 Diastolic dysfunction Dizziness 05/18/2023 Dysphagia Fibromyalgia Fibromyalgia Gastrocnemius equinus GERD (gastroesophageal reflux disease) Heart murmur Hematoma of right breast Hemiparesis ([facility]) Hemiparesis, right ([facility]) Hemorrhoid int/external hemorrhoids Hiatal hernia Iron deficiency Left foot pain 03/25/2023 Lower extremity edema Mood disorder ([facility]) mixed mood disorder OSMANY (obstructive sleep apnea) Osteoporosis ([facility]) Overactive bladder Pre-diabetes Primary hypertension ([facility]) 03/25/2023 PTSD (post-traumatic stress disorder) ([facility]) Restless leg Right knee pain Right sided weakness S/P bariatric surgery Shingles Slurred speech Stroke ([facility]) 2018 Tenosynovitis, de Quervain Thoracic [...] of the risks of continued smoking: stroke, WA, all forms of cancer, lung disease, and [...] Relevant Orders Flu vaccine, MDCK, quadrivalent, PF ([id number]) (Flucelvax single dose syringe) Associated Problem(s): Tobacco dependence The patient has been advised of the risks of continued smoking: stroke, WA, all forms of cancer, lung disease, and . Options for quitting smoking include: cold turkey, hypnosis, acupuncture, nicotine replacement meds (gum, lozenges, and patches), Buproprion, and Varenicline. At this time pt is encouraged to evaluate their goals for wanting to quit smoking, and reach out to provider when ready to start this process documented in this encounter [facility] 01-04-2024 History of Present illness [...] compliance problems. There is no history of CAD/WA, heart failure or PVD. Identifiable causes of hypertension include sleep apnea. SUBJECTIVE: MEDICATIONS: Current Outpatient Medications Medication Instructions amLODIPine (NORVASC) 10 mg, Oral, Daily biotin 5 MG tablet Pt taking OTC ([employer]) Calcium Citrate-Vitamin D (CITRACAL + D PO) Pt taking OTC ([employer]) carvedilol (COREG) 12.5 mg, Oral, 2 times [...] Daily Magnesium 400 MG capsule Pt taking OTC([employer]) Melatonin 12 MG tablet 1 tablet, Oral, Nightly Multiple Vitamins-Minerals (BARIATRIC MULTIVITAMINS/IRON PO) Pt taking OTC ([employer]) nystatin (Mycostatin) 178807 UNIT/GM powder 1 application , Topical, 2 [...] Anxiety 05/18/2023 Bipolar disorder with severe depression ([facility]) 05/18/2023 Brain lesion Brain vascular malformation Chronic pain disorder Closed fracture of patella 02/04/2018 Colon polyps Constipation Degenerative cervical disc Degenerative lumbar disc Depression ([facility]) 05/18/2023 Diastolic dysfunction Dizziness 05/18/2023 Dysphagia Fibromyalgia Fibromyalgia Gastrocnemius equinus GERD (gastroesophageal reflux disease) Heart murmur Hematoma of right breast Hemiparesis ([facility]) Hemiparesis, right ([facility]) Hemorrhoid int/external hemorrhoids Hiatal hernia Iron deficiency Left foot pain 03/25/2023 Lower extremity edema Mood disorder ([facility]) mixed mood disorder OSMANY (obstructive sleep apnea) Osteoporosis ([facility]) Overactive bladder Pre-diabetes Primary hypertension ([facility]) 03/25/2023 PTSD (post-traumatic stress disorder) ([facility]) Restless leg Right knee pain Right sided weakness S/P bariatric surgery Shingles Slurred speech Stroke ([facility]) 2018 Tenosynovitis, de Quervain Thoracic [...] MCG/ACT nasal spray documented in this encounter [facility] 12-09-2023 History of Present illness [...] machine. She is normally seen at the [facility] and was last seen on [...] of right breast Hemiparesis (CMS/HCC) Hemiparesis, right ([facility]) Hemorrhoid int/external hemorrhoids Hiatal hernia Iron deficiency Left foot pain 03/25/2023 Lower extremity edema Mood disorder ([facility]) mixed mood disorder OSMANY (obstructive sleep apnea) Osteoporosis ([facility]) Overactive bladder Pre-diabetes Primary hypertension ([facility]) 03/25/2023 PTSD (post-traumatic stress disorder) ([facility]) Restless leg Right knee pain Right sided weakness S/P bariatric surgery Shingles Slurred speech Stroke ([facility]) 2018 Tenosynovitis, de Quervain Thoracic [...] melatonin. She was last seen in the [facility] on June 24, 2023. 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 She is compliant on her download [...] was counseled on the risks of stroke, WA, and sudden with OSMANY, along with the [...] clinic: one year documented in this encounter [facility] 12-08-2023 History of Present illness [...] Degenerative cervical disc Degenerative lumbar disc Depression ([facility]) 05/18/2023 Diastolic dysfunction Dizziness 05/18/2023 Dysphagia Fibromyalgia Fibromyalgia Gastrocnemius equinus GERD (gastroesophageal reflux disease) Heart murmur Hematoma of right breast Hemiparesis ([facility]) Hemiparesis, right ([facility]) Hemorrhoid int/external hemorrhoids Hiatal hernia Iron deficiency Left foot pain 03/25/2023 Lower extremity edema Mood disorder ([facility]) mixed mood disorder OSMANY (obstructive sleep apnea) Osteoporosis ([facility]) Overactive bladder Pre-diabetes Primary hypertension ([facility]) 03/25/2023 PTSD (post-traumatic stress disorder) ([facility]) Restless leg Right knee pain Right sided weakness S/P bariatric surgery Shingles Slurred speech Stroke ([facility]) 2018 Tenosynovitis, de Quervain Thoracic [...] Review Audit Reviewed by Festus Baron MA (Loss Prevention Detective) on 12/08/23 at 1525 Medication Order Taking? Sig Documenting Provider Last Dose Status amLODIPine (Norvasc) 10 MG tablet [id number] Take 1 tablet (10 mg) by mouth Daily Adelaida Carrion NP Active biotin 5 MG tablet [id number] Pt taking OTC ([employer]) Historical Provider, Active Calcium Citrate-Vitamin D (CITRACAL + D PO) [id number] Pt taking OTC ([employer]) Historical ProviderMD Active Cariprazine HCl (Vraylar) 4.5 MG capsule [id number] Take 4.5 mg by mouth Daily Active carvedilol (Coreg) 12.5 MG tablet [id number] Take 1 tablet (12.5 mg) by mouth in the morning and 1 tablet (12.5 mg) in the evening. Take with meals. Adelaida Carrion NP Active cetirizine (ZyrTEC) 10 MG tablet [id number] Take 1 tablet (10 mg) by mouth Daily Adelaida Carrion NP Active clonazePAM (KlonoPIN) 1 MG tablet [id number] Take 1 tablet (1 mg) by mouth 2 (two) times a day as needed for anxiety Do not start before October 16, 2023. Sonam Brown NP 11/15/23 235 DULoxetine (Cymbalta) [address] capsule [id number] Take 60 mg by mouth in the morning and 60 mg before bedtime. Do not crush or chew.. Active fluconazole (Diflucan) 150 MG tablet [id number] 1 pill every 3 days for a total of 3 doses Adelaida Carrion NP Active fluticasone (Flonase) 50 MCG/ACT nasal spray [id number] Administer 2 sprays into each nostril Daily Adelaida Carrion NP 11/04/23 235 gabapentin (Neurontin) 300 MG capsule [id number] Take 1 capsule (300 mg) by mouth in the morning and 1 capsule (300 mg) before bedtime. Sonam Brown NP Active losartan (Cozaar) 100 MG tablet [id number] Take 1 tablet (100 mg) by mouth Daily Adelaida Carrion NP Active Magnesium 400 MG capsule [id number] Pt taking OTC([employer]) Historical ProviderMD Active Melatonin 12 MG tablet [id number] Take 1 tablet by mouth at bedtime Active Multiple Vitamins-Minerals (BARIATRIC MULTIVITAMINS/IRON PO) [id number] Pt taking OTC ([employer]) Historical ProviderMD Active nystatin (Mycostatin) 851057 UNIT/GM powder [id number] Apply 1 application topically in the morning and 1 application before bedtime. Adelaida Carrion NP Active omeprazole (PriLOSEC) [address] capsule [id number] Take 1 capsule (20 mg) by mouth in the morning. Take before meals. Adelaida Carrion NP Active rOPINIRole (Requip) 4 MG tablet [id number] Take 1 tablet (4 mg) by mouth at bedtime Sonamolvin Brown NP Active spironolactone (Aldactone) 25 MG tablet [id number] Take 2 tablets (50 mg) by mouth Daily Adelaida Carrion NP Active tiZANidine (Zanaflex) 2 MG tablet [id number] Take 2 mg by mouth every 8 (eight) hours Adelaida Carrion NP Active traZODone (Desyrel) 150 MG tablet [id number] Take 150 mg by mouth at bedtime Active HPI AMS -Patient was admitted to [facility] from the [facility] on 08/24/2023 with acute respiratory failure [...] ankle and great toe bilaterally. Coordination Right: Wqnetb-yo-dybi normal. Rapid alternating movement normal.Left: Dzlukt-dx-xxfk normal. Rapid alternating movement normal. Gait Casual gait is normal including stance, stride, and arm swing. Motor Examination RUE Strength deltoid, biceps, triceps, wrist extensors, wrist extensors, wrist flexor, dramatic reader strength 5/5. LUE Strength deltoid, biceps, triceps, wrist extensors, wrist extensors, wrist flexor, dramatic reader strength 5/5. RLE Strength illopsoas, quadriceps, tibialis [...] not all inclusive. Patient was admitted to [facility] from the [facility] on 08/24/2023 with acute respiratory failure [...] of the brain in July 2019 showed pejx-zp-yqhbwvjr white matter changes with the largest area [...] make further recommendations documented in this encounter [facility] 05-18-2023 History of Present illness [...] (BARIATRIC MULTIVITAMINS/IRON PO) Bariatric Multivitamins/Iron nystatin (Mycostatin) [id number] UNIT/GM powder 1 application , Topical, 2 [...] Anxiety 05/18/2023 Bipolar disorder with severe depression ([facility]) 05/18/2023 Brain vascular malformation Chronic pain disorder Colon polyps Constipation Degenerative cervical disc Degenerative lumbar disc Depression ([facility]) 05/18/2023 Diastolic dysfunction Dizziness 05/18/2023 Dysphagia Fibromyalgia Gastrocnemius equinus GERD (gastroesophageal reflux disease) Heart murmur Hematoma of right breast Hemiparesis, right ([facility]) Hemorrhoid int/external hemorrhoids Hiatal hernia Iron deficiency Left foot pain 03/25/2023 Lower extremity edema Mood disorder ([facility]) mixed mood disorder OSMANY (obstructive sleep apnea) Osteoporosis ([facility]) Overactive bladder Pre-diabetes Primary hypertension ([facility]) 03/25/2023 PTSD (post-traumatic stress disorder) ([facility]) Restless leg Right knee pain Right sided weakness S/P bariatric surgery Shingles Slurred speech Stroke ([facility]) 2018 Tenosynovitis, de Quervain Thoracic [...] yearly and prn documented in this encounter [facility] 03-23-2023 Procedure note [facility] 12-19-2022 Evaluation note Encounter Date Diagnosis Assessment Notes Dec, Skin candidiasis (ICD-10 - B37.2) Drink plenty fluids, get plenty of rest. Continue home medications as prescribed. Take the Diflucan as prescribed until gone. Follow-up with your family physician if no improvement in 2 to 3 days [employer] Other 08-17-2023 Discharge summary Author Eduardo bautista [place] November 20, 2022 6:38am Note Date/Time November 20, 2022 6: 38am [facility] [address] [place] [address] Discharge Summary Signed Patient: Michelle Be MR#: [id number] : 1960 Acct:[id number] Age/Sex: 61 / F Adm Date: 3 Loc: 1S Room: [address] [place] [address]: Gaudencio Monk MD Copies to: [...] time.? She reports moving to [place] from [place] in 2011 and was then diagnosed with bipolar disorder at [facility] in [place], where she still follows with a therapist.? Shereports that she has been with 7 therapists in the last 9 years and is currentlycompleting EMDR with her current therapist. Past hospitalizations: Her most recent hospitalization was 5 years ago [facility] in [place] for the same feeling she is experiencing [...] worked since 2010 due to her fibromyalgia.? [facility]. 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 (insert date/time [...] Eduardo Monk MD> 11/20/22 0638 [facility] Work Phone: 1(133) 619-368408-16-2023 Progress note Author Eduardo bautista [place] November 19, 2022 6:25am Note Date/Time November 19, 2022 6: 25am [facility] [address] [place] [address] Psychiatry Progress Note Signed Patient: Michelle Be MR#: [id number] : 1960 Acct:[id number] Age/Sex: 61 / F Adm Date: 3 Loc: Room: [address] [place] [address] Type : ADM IN Attending Dr: Gaudencio [...] signed by Eduardo Monk MD> 11/19/22 0625 [facility] Work Phone: 1(178) 552-549008-15-2023 Progress note Author Eduardo bautista [place] November 18, 2022 11:01am Note Date/Time November 18, 2022 10 :11am [facility] [address] [place] [address] Psychiatry Progress Note Signed Patient: Michelle Be MR#: [id number] : 1960 Acct:[id number] Age/Sex: 61 / F Adm Date: 3 Loc: Room: [address] [place] [address] Type : ADM IN Attending Dr: Gaudencio [...] by requesting a schedule 2 referring to [place] for pain management specifically every 4-6 hours [...] MD DA Rangel> 11/18/22 1011 [facility] Work Phone: 1(171) 426-748708-14-2023 History and physical note Author Eduardo bautista [place] November 17, 2022 12:48pm Note Date/Time November 17, 2022 12 :48pm [facility] [address] [place] [address] Psychiatry H&P Signed Patient: Michelle Be MR#: [id number] : 1960 Acct:[id number] Age/Sex: 61 / F Adm Date: 3 Loc: Room: [address] [place] [address] Type: ADM IN Attending Dr: Gaudencio Monk MD Copies to: MD Adelaida Álvarez, FOOD PRODUCTS TESTER-C~ Date of Service: 11/17/2022 HPI History of [...] time. She reports moving to [place] from [place] in 2011 and was then diagnosed with bipolar disorder at [facility] in [place], where she still follows with a therapist. Shereports that she has been with 7 therapists in the last 9 years and is currentlycompleting EMDR with her current therapist. Past hospitalizations: Her most recent hospitalization was 5 years ago [facility] for the same feeling she is [...] worked since 2010 due to her fibromyalgia. [facility]. Relationships: Reports [...] bilaterally. CN XII: Tongue protrusion midline [facility] Medical History (Updated 11/17/22 @ [...] by Eduardo Monk MD> 11/17/22 1248 [facility] Work Phone: 1(854) 420-389903-23-2023 NoteCONSULTATION CONSULTATION DATE: 06/26/2022 To: Nurse Carrion [...] facet joint injection under fluoroscopic guidance.[id number] NotePROCEDURE: XR SHOULDER RT 2V or > [...] authenticated by: KINGSLEY CLEMENTS Date: 2022-05-09 09:21[facility]01-23-2023 NotePROCEDURE: XR WRIST LT MIN 3 [...] Electronically authenticated by: KINGSLEY CLEMENTS Date: 2022-04-28 13:31[facility]12-29-2022 NoteCONSULTATION CONSULTATION DATE: 04/03/2022 HISTORY OF [...] in three months, unless otherwise indicated.[id number] NoteCONSULTATION CONSULTATION DATE: 01/02/2022 This is a [...] prescription was sent by Dr. Macedo to [facility] in [place] for the compounded cream. She needs a [...] three months' time unless otherwise indicated.[id number] NotePROCEDURE: XR ANKLE RT MIN 3 VIEWS, [...] authenticated by: KINGSLEY CLEMENTS Date: 2022-01-01 13:11[facility]09-28-2022 NotePROCEDURE: XR ANKLE RT MIN 3 [...] authenticated by: KINGSLEY CLEMENTS Date: 2022-01-01 13:11[facility]08-18-2022 NotePROCEDURE: XR FOOT RT MIN 3 VIEWS HISTORY: Pain in right foot , chronic COMPARISON: XR foot right 2020 FINDINGS: BONES:No fracture, dislocation, bone lesion. Small calcaneal degenerative enthesophytes. SOFT TISSUES:No visible soft tissue swelling. EFFUSION:None visible. OTHER: Negative. IMPRESSION: 1. No acute bone abnormality or significant degenerative joint disease. Electronically authenticated by: KINGSLEY CLEMENTS Date: 2021-11-21 16:13[facility]06-30-2022 NoteCONSULTATION CONSULTATION DATE: 10/03/2021 This is [...] patient agrees with the plan of care. [facility] Signed and Approved by: ZELDA MCDANIEL . 10/10/2021 10:22:00[facility] Diagnosis Onset Date Resolution Status Allergies acute Bipolar 2 disorder acute Hypertension acute Morbid obesity with BMI of 45.0-49.9, adult acute OSMANY (obstructive sleep apnea) acute Restless legs syndrome acute [facility] Work Phone: Evaluation noteNo InformationNort [employer] Other Evaluation noteNo assessment information available [facility] Work Phone: Evaluation note* [...] Tobacco dependence Tobacco use disorder Mood disorder ([facility]/HCC) Unspecified episodic mood disorder Primary hypertension ([facility]) Unspecified essential hypertension Left hip pain Pain in joint, pelvic region and thigh Open wound of anterior abdominal wall, initial encounter documented in this encounter [facility] HealthcareEvaluation [facility]* Diagnosis Acute cystitis with hematuria- Primary documented in this encounter [facility] HealthcareEvaluation note* Diagnosis Left foot pain- Primary Pain in soft tissues of limb Primary hypertension ([facility]) Unspecified essential hypertension Class 3 severe obesity due to excess calories without serious comorbidity with body mass index (BMI) of 45.0 to 49.9 in adult ([facility]) Encounter for annual wellness visit (AWV) in Medicare patient- Primary OSMANY (obstructive sleep apnea) Obstructive sleep apnea (adult) (pediatric) Chronic pain disorder Chronic pain syndrome Gastroesophageal reflux disease, unspecified whether esophagitis present Overactive bladder Hypertonicity of bladder Lower extremity edema Edema Pre-diabetes Other abnormal glucose Morbid obesity ([facility]/HCC) Morbid obesity Yeast infection of the skin Candidiasis of skin and nails Tobacco dependence Tobacco use disorder Mood disorder ([facility]) Unspecified episodic mood disorder Primary hypertension ([facility]) Unspecified essential hypertension Left hip pain Pain in joint, pelvic region and thigh Open wound of anterior abdominal wall, initial encounter Primary hypertension ([facility])- Primary Unspecified essential hypertension Yeast infection of the skin Candidiasis of skin and nails Morbid obesity ([facility]) Morbid obesity Primary hypertension ([facility])- Primary Unspecified essential hypertension Encounter for screening mammogram for malignant neoplasm of breast Gastroesophageal reflux disease, unspecified whether esophagitis present Acute gout of right foot, unspecified cause Osteoporosis, unspecified osteoporosis type, unspecified pathological fracture presence ([facility]) Morbid obesity ([facility]) Morbid obesity Pre-diabetes Other abnormal glucose Anemia, unspecified type Vitamin deficiency Unspecified vitamin deficiency Post-viral cough syndrome Primary hypertension ([facility])- Primary Unspecified essential hypertension Allergic rhinitis, unspecified Acute cough Morbid obesity ([facility]) Morbid obesity Former cigarette smoker Personal history of tobacco use, presenting hazards to health Toxic metabolic encephalopathy- Primary Hemiparesis, right ([facility]) Unspecified hemiplegia affecting unspecified side Acute respiratory failure with hypoxia ([facility]) Heart murmur Undiagnosed cardiac murmurs Primary hypertension ([facility]) Unspecified essential hypertension Morbid obesity ([facility]) Morbid obesity Bipolar disorder with severe depression ([facility]) Slurred speech Other speech disturbance Bilateral lower extremity edema- Primary Primary hypertension ([facility]) Unspecified essential hypertension Lower extremity edema Edema Essential (primary) hypertension ([facility]) Unspecified essential hypertension Gastro-esophageal reflux disease without esophagitis Allergic rhinitis, unspecified Bilateral lower extremity edema- Primary Morbid (severe) obesity due to excess calories ([facility]) Body mass index (BMI) 45.0-49.9, adult ([facility]) Pre-diabetes Other abnormal glucose Bilateral lower extremity edema- Primary Essential (primary) hypertension ([facility]) Unspecified essential hypertension Allergic rhinitis, unspecified OSMANY (obstructive sleep apnea) Obstructive sleep apnea (adult) (pediatric) Primary hypertension ([facility]) Unspecified essential hypertension Morbid obesity ([facility]) Morbid obesity Acute cystitis without hematuria- Primary Tobacco dependence Tobacco use disorder Needs flu shot Need for prophylactic vaccination and inoculation against influenza Morbid obesity ([facility]) Morbid obesity documented in this encounter [facility] HealthcareEvaluation note* Diagnosis Left foot pain- Primary Pain in soft tissues of limb Primary hypertension ([facility]) Unspecified essential hypertension Class 3 severe obesity due to excess calories without serious comorbidity with body mass index (BMI) of 45.0 to 49.9 in adult ([facility]) Encounter for annual wellness visit (AWV) in Medicare patient- Primary OSMANY (obstructive sleep apnea) Obstructive sleep apnea (adult) (pediatric) Chronic pain disorder Chronic pain syndrome Gastroesophageal reflux disease, unspecified whether esophagitis present Overactive bladder Hypertonicity of bladder Lower extremity edema Edema Pre-diabetes Other abnormal glucose Morbid obesity ([facility]) Morbid obesity Yeast infection of the skin Candidiasis of skin and nails Tobacco dependence Tobacco use disorder Mood disorder ([facility]) Unspecified episodic mood disorder Primary hypertension ([facility]) Unspecified essential hypertension Left hip pain Pain in joint, pelvic region and thigh Open wound of anterior abdominal wall, initial encounter Primary hypertension ([facility])- Primary Unspecified essential hypertension Yeast infection of the skin Candidiasis of skin and nails Morbid obesity ([facility]) Morbid obesity Primary hypertension ([facility])- Primary Unspecified essential hypertension Encounter for screening mammogram for malignant neoplasm of breast Gastroesophageal reflux disease, unspecified whether esophagitis present Acute gout of right foot, unspecified cause Osteoporosis, unspecified osteoporosis type, unspecified pathological fracture presence ([facility]) Morbid obesity ([facility]) Morbid obesity Pre-diabetes Other abnormal glucose Anemia, unspecified type Vitamin deficiency Unspecified vitamin deficiency Post-viral cough syndrome Primary hypertension ([facility])- Primary Unspecified essential hypertension Allergic rhinitis, unspecified Acute cough Morbid obesity ([facility]) Morbid obesity Former cigarette smoker Personal history of tobacco use, presenting hazards to health Toxic metabolic encephalopathy- Primary Hemiparesis, right ([facility]) Unspecified hemiplegia affecting unspecified side Acute respiratory failure with hypoxia ([facility]) Heart murmur Undiagnosed cardiac murmurs Primary hypertension ([facility]) Unspecified essential hypertension Morbid obesity ([facility]) Morbid obesity Bipolar disorder with severe depression ([facility]) Slurred speech Other speech disturbance Bilateral lower extremity edema- Primary Primary hypertension ([facility]) Unspecified essential hypertension Lower extremity edema Edema Essential (primary) hypertension ([facility]) Unspecified essential hypertension Gastro-esophageal reflux disease without esophagitis Allergic rhinitis, unspecified Bilateral lower extremity edema- Primary Morbid (severe) obesity due to excess calories ([facility]) Body mass index (BMI) 45.0-49.9, adult ([facility]) Pre-diabetes Other abnormal glucose Bilateral lower extremity edema- Primary Essential (primary) hypertension ([facility]) Unspecified essential hypertension Allergic rhinitis, unspecified OSMANY (obstructive sleep apnea) Obstructive sleep apnea (adult) (pediatric) Primary hypertension ([facility]) Unspecified essential hypertension Morbid obesity ([facility]) Morbid obesity Acute cystitis without hematuria- Primary Tobacco dependence Tobacco use disorder Needs flu shot Need for prophylactic vaccination and inoculation against influenza Morbid obesity ([facility]) Morbid obesity Restless leg Restless legs syndrome (RLS) documented in this encounter [facility] HealthcareEvaluation note* Diagnosis Left foot pain- Primary Pain in soft tissues of limb Primary hypertension ([facility]) Unspecified essential hypertension Class 3 severe obesity due to excess calories without serious comorbidity with body mass index (BMI) of 45.0 to 49.9 in adult ([facility]) Encounter for annual wellness visit (AWV) in Medicare patient- Primary OSMANY (obstructive sleep apnea) Obstructive sleep apnea (adult) (pediatric) Chronic pain disorder Chronic pain syndrome Gastroesophageal reflux disease, unspecified whether esophagitis present Overactive bladder Hypertonicity of bladder Lower extremity edema Edema Pre-diabetes Other abnormal glucose Morbid obesity ([facility]) Morbid obesity Yeast infection of the skin Candidiasis of skin and nails Tobacco dependence Tobacco use disorder Mood disorder ([facility]) Unspecified episodic mood disorder Primary hypertension ([facility]) Unspecified essential hypertension Left hip pain Pain in joint, pelvic region and thigh Open wound of anterior abdominal wall, initial encounter Primary hypertension ([facility])- Primary Unspecified essential hypertension Yeast infection of the skin Candidiasis of skin and nails Morbid obesity ([facility]) Morbid obesity Primary hypertension ([facility])- Primary Unspecified essential hypertension Encounter for screening mammogram for malignant neoplasm of breast Gastroesophageal reflux disease, unspecified whether esophagitis present Acute gout of right foot, unspecified cause Osteoporosis, unspecified osteoporosis type, unspecified pathological fracture presence ([facility]) Morbid obesity ([facility]) Morbid obesity Pre-diabetes Other abnormal glucose Anemia, unspecified type Vitamin deficiency Unspecified vitamin deficiency Post-viral cough syndrome Primary hypertension ([facility])- Primary Unspecified essential hypertension Allergic rhinitis, unspecified Acute cough Morbid obesity ([facility]) Morbid obesity Former cigarette smoker Personal history of tobacco use, presenting hazards to health Toxic metabolic encephalopathy- Primary Hemiparesis, right ([facility]) Unspecified hemiplegia affecting unspecified side Acute respiratory failure with hypoxia ([facility]) Heart murmur Undiagnosed cardiac murmurs Primary hypertension ([facility]) Unspecified essential hypertension Morbid obesity ([facility]) Morbid obesity Bipolar disorder with severe depression ([facility]) Slurred speech Other speech disturbance Bilateral lower extremity edema- Primary Primary hypertension ([facility]) Unspecified essential hypertension Lower extremity edema Edema Essential (primary) hypertension ([facility]) Unspecified essential hypertension Gastro-esophageal reflux disease without esophagitis Allergic rhinitis, unspecified Bilateral lower extremity edema- Primary Morbid (severe) obesity due to excess calories ([facility]) Body mass index (BMI) 45.0-49.9, adult ([facility]) Pre-diabetes Other abnormal glucose Bilateral lower extremity edema- Primary Essential (primary) hypertension ([facility]) Unspecified essential hypertension Allergic rhinitis, unspecified OSMANY (obstructive sleep apnea) Obstructive sleep apnea (adult) (pediatric) Primary hypertension ([facility]) Unspecified essential hypertension Morbid obesity ([facility]) Morbid obesity Acute cystitis without hematuria- Primary Tobacco dependence Tobacco use disorder Needs flu shot Need for prophylactic vaccination and inoculation against influenza Morbid obesity ([facility]) Morbid obesity Well woman exam with routine gynecological exam- Primary Routine gynecological examination Morbid obesity ([facility]) Morbid obesity documented in this encounter [facility] HealthcareEvaluation note* Diagnosis Left foot pain- Primary Pain in soft tissues of limb Primary hypertension ([facility]) Unspecified essential hypertension Class 3 severe obesity due to excess calories without serious comorbidity with body mass index (BMI) of 45.0 to 49.9 in adult ([facility]) Encounter for annual wellness visit (AWV) in Medicare patient- Primary OSMANY (obstructive sleep apnea) Obstructive sleep apnea (adult) (pediatric) Chronic pain disorder Chronic pain syndrome Gastroesophageal reflux disease, unspecified whether esophagitis present Overactive bladder Hypertonicity of bladder Lower extremity edema Edema Pre-diabetes Other abnormal glucose Morbid obesity ([facility]) Morbid obesity Yeast infection of the skin Candidiasis of skin and nails Tobacco dependence Tobacco use disorder Mood disorder ([facility]) Unspecified episodic mood disorder Primary hypertension ([facility]) Unspecified essential hypertension Left hip pain Pain in joint, pelvic region and thigh Open wound of anterior abdominal wall, initial encounter Primary hypertension ([facility])- Primary Unspecified essential hypertension Yeast infection of the skin Candidiasis of skin and nails Morbid obesity (CMS/HCC) Morbid obesity Primary hypertension ([facility]/HCC)- Primary Unspecified essential hypertension Encounter for screening mammogram for malignant neoplasm of breast Gastroesophageal reflux disease, unspecified whether esophagitis present Acute gout of right foot, unspecified cause Osteoporosis, unspecified osteoporosis type, unspecified pathological fracture presence ([facility]) Morbid obesity ([facility]) Morbid obesity Pre-diabetes Other abnormal glucose Anemia, unspecified type Vitamin deficiency Unspecified vitamin deficiency Post-viral cough syndrome Primary hypertension ([facility])- Primary Unspecified essential hypertension Allergic rhinitis, unspecified Acute cough Morbid obesity ([facility]) Morbid obesity Former cigarette smoker Personal history of tobacco use, presenting hazards to health Toxic metabolic encephalopathy- Primary Hemiparesis, right ([facility]) Unspecified hemiplegia affecting unspecified side Acute respiratory failure with hypoxia ([facility]) Heart murmur Undiagnosed cardiac murmurs Primary hypertension ([facility]) Unspecified essential hypertension Morbid obesity ([facility]) Morbid obesity Bipolar disorder with severe depression ([facility]) Slurred speech Other speech disturbance Bilateral lower extremity edema- Primary Primary hypertension ([facility]) Unspecified essential hypertension Lower extremity edema Edema Essential (primary) hypertension ([facility]) Unspecified essential hypertension Gastro-esophageal reflux disease without esophagitis Allergic rhinitis, unspecified Bilateral lower extremity edema- Primary Morbid (severe) obesity due to excess calories ([facility]) Body mass index (BMI) 45.0-49.9, adult ([facility]) Pre-diabetes Other abnormal glucose Bilateral lower extremity edema- Primary Essential (primary) hypertension ([facility]) Unspecified essential hypertension Allergic rhinitis, unspecified OSMANY (obstructive sleep apnea) Obstructive sleep apnea (adult) (pediatric) Primary hypertension ([facility]) Unspecified essential hypertension Morbid obesity ([facility]) Morbid obesity Acute cystitis without hematuria- Primary Tobacco dependence Tobacco use disorder Needs flu shot Need for prophylactic vaccination and inoculation against influenza Morbid obesity ([facility]) Morbid obesity Well woman exam with routine gynecological exam- Primary Routine gynecological examination Morbid obesity ([facility]) Morbid obesity Essential (primary) hypertension ([facility]) Unspecified essential hypertension Allergic rhinitis, unspecified documented in this encounter [facility] HealthcareEvaluation note* Diagnosis Left foot pain- Primary Pain in soft tissues of limb Primary hypertension ([facility]) Unspecified essential hypertension Class 3 severe obesity due to excess calories without serious comorbidity with body mass index (BMI) of 45.0 to 49.9 in adult ([facility]) Encounter for annual wellness visit (AWV) in Medicare patient- Primary OSMANY (obstructive sleep apnea) Obstructive sleep apnea (adult) (pediatric) Chronic pain disorder Chronic pain syndrome Gastroesophageal reflux disease, unspecified whether esophagitis present Overactive bladder Hypertonicity of bladder Lower extremity edema Edema Pre-diabetes Other abnormal glucose Morbid obesity ([facility]) Morbid obesity Yeast infection of the skin Candidiasis of skin and nails Tobacco dependence Tobacco use disorder Mood disorder ([facility]) Unspecified episodic mood disorder Primary hypertension ([facility]) Unspecified essential hypertension Left hip pain Pain in joint, pelvic region and thigh Open wound of anterior abdominal wall, initial encounter Primary hypertension ([facility])- Primary Unspecified essential hypertension Yeast infection of the skin Candidiasis of skin and nails Morbid obesity ([facility]) Morbid obesity Primary hypertension ([facility])- Primary Unspecified essential hypertension Encounter for screening mammogram for malignant neoplasm of breast Gastroesophageal reflux disease, unspecified whether esophagitis present Acute gout of right foot, unspecified cause Osteoporosis, unspecified osteoporosis type, unspecified pathological fracture presence ([facility]) Morbid obesity ([facility]) Morbid obesity Pre-diabetes Other abnormal glucose Anemia, unspecified type Vitamin deficiency Unspecified vitamin deficiency Post-viral cough syndrome Primary hypertension ([facility])- Primary Unspecified essential hypertension Allergic rhinitis, unspecified Acute cough Morbid obesity ([facility]) Morbid obesity Former cigarette smoker Personal history of tobacco use, presenting hazards to health Toxic metabolic encephalopathy- Primary Hemiparesis, right ([facility]) Unspecified hemiplegia affecting unspecified side Acute respiratory failure with hypoxia ([facility]) Heart murmur Undiagnosed cardiac murmurs Primary hypertension ([facility]) Unspecified essential hypertension Morbid obesity ([facility]) Morbid obesity Bipolar disorder with severe depression ([facility]) Slurred speech Other speech disturbance Bilateral lower extremity edema- Primary Primary hypertension ([facility]) Unspecified essential hypertension Lower extremity edema Edema Essential (primary) hypertension ([facility]) Unspecified essential hypertension Gastro-esophageal reflux disease without esophagitis Allergic rhinitis, unspecified Bilateral lower extremity edema- Primary Morbid (severe) obesity due to excess calories ([facility]) Body mass index (BMI) 45.0-49.9, adult ([facility]) Pre-diabetes Other abnormal glucose Bilateral lower extremity edema- Primary Essential (primary) hypertension ([facility]/HCC) Unspecified essential hypertension Allergic rhinitis, unspecified OSMANY (obstructive sleep apnea) Obstructive sleep apnea (adult) (pediatric) Primary hypertension ([facility]) Unspecified essential hypertension Morbid obesity ([facility]) Morbid obesity Acute cystitis without hematuria- Primary Tobacco dependence Tobacco use disorder Needs flu shot Need for prophylactic vaccination and inoculation against influenza Morbid obesity (CMS/HCC) Morbid obesity Well woman exam with routine gynecological exam- Primary Routine gynecological examination Morbid obesity ([facility]CC) Morbid obesity Allergic rhinitis, unspecified documented in this encounter [facility] HealthcareEvaluation note* Diagnosis Left foot pain- Primary Pain in soft tissues of limb Primary hypertension ([facility]) Unspecified essential hypertension Class 3 severe obesity due to excess calories without serious comorbidity with body mass index (BMI) of 45.0 to 49.9 in adult ([facility]) Encounter for annual wellness visit (AWV) in Medicare patient- Primary OSMANY (obstructive sleep apnea) Obstructive sleep apnea (adult) (pediatric) Chronic pain disorder Chronic pain syndrome Gastroesophageal reflux disease, unspecified whether esophagitis present Overactive bladder Hypertonicity of bladder Lower extremity edema Edema Pre-diabetes Other abnormal glucose Morbid obesity ([facility]) Morbid obesity Yeast infection of the skin Candidiasis of skin and nails Tobacco dependence Tobacco use disorder Mood disorder ([facility]) Unspecified episodic mood disorder Primary hypertension ([facility]) Unspecified essential hypertension Left hip pain Pain in joint, pelvic region and thigh Open wound of anterior abdominal wall, initial encounter Primary hypertension ([facility])- Primary Unspecified essential hypertension Yeast infection of the skin Candidiasis of skin and nails Morbid obesity ([facility]) Morbid obesity Primary hypertension ([facility] [facility])- Primary Unspecified essential hypertension Encounter for screening mammogram for malignant neoplasm of breast Gastroesophageal reflux disease, unspecified whether esophagitis present Acute gout of right foot, unspecified cause Osteoporosis, unspecified osteoporosis type, unspecified pathological fracture presence ([facility]) Morbid obesity ([facility]) Morbid obesity Pre-diabetes Other abnormal glucose Anemia, unspecified type Vitamin deficiency Unspecified vitamin deficiency Post-viral cough syndrome Primary hypertension ([facility])- Primary Unspecified essential hypertension Allergic rhinitis, unspecified Acute cough Morbid obesity ([facility]) Morbid obesity Former cigarette smoker Personal history of tobacco use, presenting hazards to health Toxic metabolic encephalopathy- Primary Hemiparesis, right ([facility]) Unspecified hemiplegia affecting unspecified side Acute respiratory failure with hypoxia ([facility]) Heart murmur Undiagnosed cardiac murmurs Primary hypertension ([facility]) Unspecified essential hypertension Morbid obesity ([facility]) Morbid obesity Bipolar disorder with severe depression ([facility]) Slurred speech Other speech disturbance Bilateral lower extremity edema- Primary Primary hypertension ([facility]) Unspecified essential hypertension Lower extremity edema Edema Essential (primary) hypertension ([facility]) Unspecified essential hypertension Gastro-esophageal reflux disease without esophagitis Allergic rhinitis, unspecified Bilateral lower extremity edema- Primary Morbid (severe) obesity due to excess calories ([facility]) Body mass index (BMI) 45.0-49.9, adult ([facility]) Pre-diabetes Other abnormal glucose Bilateral lower extremity edema- Primary Essential (primary) hypertension ([facility]) Unspecified essential hypertension Allergic rhinitis, unspecified OSMANY (obstructive sleep apnea) Obstructive sleep apnea (adult) (pediatric) Primary hypertension ([facility]) Unspecified essential hypertension Morbid obesity ([facility]) Morbid obesity Acute cystitis without hematuria- Primary Tobacco dependence Tobacco use disorder Needs flu shot Need for prophylactic vaccination and inoculation against influenza Morbid obesity ([facility]) Morbid obesity Well woman exam with routine gynecological exam- Primary Routine gynecological examination Morbid obesity ([facility]) Morbid obesity Yeast infection of the skin Candidiasis of skin and nails documented in this encounter [facility] Diagnosis Left foot pain- Primary Pain in soft tissues of limb Primary hypertension ([facility]) Unspecified essential hypertension Class 3 severe obesity due to excess calories without serious comorbidity with body mass index (BMI) of 45.0 to 49.9 in adult ([facility]) Encounter for annual wellness visit (AWV) in Medicare patient- Primary OSMANY (obstructive sleep apnea) Obstructive sleep apnea (adult) (pediatric) Chronic pain disorder Chronic pain syndrome Gastroesophageal reflux disease, unspecified whether esophagitis present Overactive bladder Hypertonicity of bladder Lower extremity edema Edema Pre-diabetes Other abnormal glucose Morbid obesity ([facility]) Morbid obesity Yeast infection of the skin Candidiasis of skin and nails Tobacco dependence Tobacco use disorder Mood disorder ([facility]) Unspecified episodic mood disorder Primary hypertension ([facility]) Unspecified essential hypertension Left hip pain Pain in joint, pelvic region and thigh Open wound of anterior abdominal wall, initial encounter Primary hypertension ([facility])- Primary Unspecified essential hypertension Yeast infection of the skin Candidiasis of skin and nails Morbid obesity ([facility]) Morbid obesity Primary hypertension ([facility])- Primary Unspecified essential hypertension Encounter for screening mammogram for malignant neoplasm of breast Gastroesophageal reflux disease, unspecified whether esophagitis present Acute gout of right foot, unspecified cause Osteoporosis, unspecified osteoporosis type, unspecified pathological fracture presence ([facility]) Morbid obesity ([facility]) Morbid obesity Pre-diabetes Other abnormal glucose Anemia, unspecified type Vitamin deficiency Unspecified vitamin deficiency Post-viral cough syndrome Primary hypertension ([facility])- Primary Unspecified essential hypertension Allergic rhinitis, unspecified Acute cough Morbid obesity ([facility]) Morbid obesity Former cigarette smoker Personal history of tobacco use, presenting hazards to health Toxic metabolic encephalopathy- Primary Hemiparesis, right ([facility]) Unspecified hemiplegia affecting unspecified side Acute respiratory failure with hypoxia ([facility]) Heart murmur Undiagnosed cardiac murmurs Primary hypertension ([facility]) Unspecified essential hypertension Morbid obesity ([facility]) Morbid obesity Bipolar disorder with severe depression ([facility]) Slurred speech Other speech disturbance Bilateral lower extremity edema- Primary Primary hypertension ([facility]) Unspecified essential hypertension Lower extremity edema Edema Essential (primary) hypertension ([facility]) Unspecified essential hypertension Gastro-esophageal reflux disease without esophagitis Allergic rhinitis, unspecified Bilateral lower extremity edema- Primary Morbid (severe) obesity due to excess calories ([facility]) Body mass index (BMI) 45.0-49.9, adult ([facility]) Pre-diabetes Other abnormal glucose Bilateral lower extremity edema- Primary Essential (primary) hypertension ([facility]) Unspecified essential hypertension Allergic rhinitis, unspecified OSMANY (obstructive sleep apnea) Obstructive sleep apnea (adult) (pediatric) Primary hypertension ([facility]) Unspecified essential hypertension Morbid obesity ([facility]) Morbid obesity Acute cystitis without hematuria- Primary Tobacco dependence Tobacco use disorder Needs flu shot Need for prophylactic vaccination and inoculation against influenza Morbid obesity ([facility]) Morbid obesity Well woman exam with routine gynecological exam- Primary Routine gynecological examination Morbid obesity ([facility]) Morbid obesity Metabolic encephalopathy- Primary OSMANY (obstructive sleep apnea) Obstructive sleep apnea (adult) (pediatric) Restless leg Restless legs syndrome (RLS) 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 ([facility]) Degeneration of intervertebral disc of lumbar region with discogenic back pain and lower extremity pain Memory change Memory loss documented in this encounter [facility] Diagnosis Left foot pain- Primary Pain in soft tissues of limb Primary hypertension ([facility]) Unspecified essential hypertension Class 3 severe obesity due to excess calories without serious comorbidity with body mass index (BMI) of 45.0 to 49.9 in adult ([facility]) Encounter for annual wellness visit (AWV) in Medicare patient- Primary OSMANY (obstructive sleep apnea) Obstructive sleep apnea (adult) (pediatric) Chronic pain disorder Chronic pain syndrome Gastroesophageal reflux disease, unspecified whether esophagitis present Overactive bladder Hypertonicity of bladder Lower extremity edema Edema Pre-diabetes Other abnormal glucose Morbid obesity ([facility]) Morbid obesity Yeast infection of the skin Candidiasis of skin and nails Tobacco dependence Tobacco use disorder Mood disorder ([facility]) Unspecified episodic mood disorder Primary hypertension ([facility]) Unspecified essential hypertension Left hip pain Pain in joint, pelvic region and thigh Open wound of anterior abdominal wall, initial encounter Primary hypertension ([facility])- Primary Unspecified essential hypertension Yeast infection of the skin Candidiasis of skin and nails Morbid obesity ([facility]) Morbid obesity Primary hypertension ([facility])- Primary Unspecified essential hypertension Encounter for screening mammogram for malignant neoplasm of breast Gastroesophageal reflux disease, unspecified whether esophagitis present Acute gout of right foot, unspecified cause Osteoporosis, unspecified osteoporosis type, unspecified pathological fracture presence ([facility]) Morbid obesity ([facility]) Morbid obesity Pre-diabetes Other abnormal glucose Anemia, unspecified type Vitamin deficiency Unspecified vitamin deficiency Post-viral cough syndrome Primary hypertension ([facility])- Primary Unspecified essential hypertension Allergic rhinitis, unspecified Acute cough Morbid obesity ([facility]) Morbid obesity Former cigarette smoker Personal history of tobacco use, presenting hazards to health Toxic metabolic encephalopathy- Primary Hemiparesis, right ([facility]) Unspecified hemiplegia affecting unspecified side Acute respiratory failure with hypoxia ([facility]) Heart murmur Undiagnosed cardiac murmurs Primary hypertension ([facility]) Unspecified essential hypertension Morbid obesity ([facility]) Morbid obesity Bipolar disorder with severe depression ([facility]) Slurred speech Other speech disturbance Bilateral lower extremity edema- Primary Primary hypertension ([facility]) Unspecified essential hypertension Lower extremity edema Edema Essential (primary) hypertension ([facility]) Unspecified essential hypertension Gastro-esophageal reflux disease without esophagitis Allergic rhinitis, unspecified Bilateral lower extremity edema- Primary Morbid (severe) obesity due to excess calories ([facility]) Body mass index (BMI) 45.0-49.9, adult ([facility]) Pre-diabetes Other abnormal glucose Bilateral lower extremity edema- Primary Essential (primary) hypertension ([facility]) Unspecified essential hypertension Allergic rhinitis, unspecified OSMANY (obstructive sleep apnea) Obstructive sleep apnea (adult) (pediatric) Primary hypertension ([facility]) Unspecified essential hypertension Morbid obesity ([facility]) Morbid obesity Acute cystitis without hematuria- Primary Tobacco dependence Tobacco use disorder Needs flu shot Need for prophylactic vaccination and inoculation against influenza Morbid obesity ([facility]) Morbid obesity Well woman exam with routine gynecological exam- Primary Routine gynecological examination Morbid obesity ([facility]) Morbid obesity Altered mental status, unspecified altered mental status type- Primary Restless leg Restless legs syndrome (RLS) 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[facility]) OSMANY (obstructive sleep apnea) Obstructive sleep apnea (adult) (pediatric) documented in this encounter [facility]* Diagnosis Left foot pain- Primary Pain in soft tissues of limb Primary hypertension ([facility]) Unspecified essential hypertension Class 3 severe obesity due to excess calories without serious comorbidity with body mass index (BMI) of 45.0 to 49.9 in adult ([facility]) Encounter for annual wellness visit (AWV) in Medicare patient- Primary OSMANY (obstructive sleep apnea) Obstructive sleep apnea (adult) (pediatric) Chronic pain disorder Chronic pain syndrome Gastroesophageal reflux disease, unspecified whether esophagitis present Overactive bladder Hypertonicity of bladder Lower extremity edema Edema Pre-diabetes Other abnormal glucose Morbid obesity ([facility]) Morbid obesity Yeast infection of the skin Candidiasis of skin and nails Tobacco dependence Tobacco use disorder Mood disorder ([facility]) Unspecified episodic mood disorder Primary hypertension ([facility]) Unspecified essential hypertension Left hip pain Pain in joint, pelvic region and thigh Open wound of anterior abdominal wall, initial encounter Primary hypertension ([facility])- Primary Unspecified essential hypertension Yeast infection of the skin Candidiasis of skin and nails Morbid obesity ([facility]) Morbid obesity Primary hypertension ([facility])- Primary Unspecified essential hypertension Encounter for screening mammogram for malignant neoplasm of breast Gastroesophageal reflux disease, unspecified whether esophagitis present Acute gout of right foot, unspecified cause Osteoporosis, unspecified osteoporosis type, unspecified pathological fracture presence ([facility]) Morbid obesity ([facility]) Morbid obesity Pre-diabetes Other abnormal glucose Anemia, unspecified type Vitamin deficiency Unspecified vitamin deficiency Post-viral cough syndrome Primary hypertension ([facility])- Primary Unspecified essential hypertension Allergic rhinitis, unspecified Acute cough Morbid obesity ([facility]) Morbid obesity Former cigarette smoker Personal history of tobacco use, presenting hazards to health Toxic metabolic encephalopathy- Primary Hemiparesis, right ([facility]) Unspecified hemiplegia affecting unspecified side Acute respiratory failure with hypoxia ([facility]) Heart murmur Undiagnosed cardiac murmurs Primary hypertension ([facility]) Unspecified essential hypertension Morbid obesity ([facility]) Morbid obesity Bipolar disorder with severe depression ([facility]) Slurred speech Other speech disturbance Bilateral lower extremity edema- Primary Primary hypertension ([facility]) Unspecified essential hypertension Lower extremity edema Edema Essential (primary) hypertension ([facility]) Unspecified essential hypertension Gastro-esophageal reflux disease without esophagitis Allergic rhinitis, unspecified Bilateral lower extremity edema- Primary Morbid (severe) obesity due to excess calories ([facility]) Body mass index (BMI) 45.0-49.9, adult ([facility]) Pre-diabetes Other abnormal glucose Bilateral lower extremity edema- Primary Essential (primary) hypertension ([facility]) Unspecified essential hypertension Allergic rhinitis, unspecified OSMANY (obstructive sleep apnea) Obstructive sleep apnea (adult) (pediatric) Primary hypertension ([facility]) Unspecified essential hypertension Morbid obesity ([facility]) Morbid obesity Acute cystitis without hematuria- Primary Tobacco dependence Tobacco use disorder Needs flu shot Need for prophylactic vaccination and inoculation against influenza Morbid obesity ([facility]) Morbid obesity Well woman exam with routine gynecological exam- Primary Routine gynecological examination Morbid obesity ([facility]) Morbid obesity Altered mental status, unspecified altered mental status type- Primary Memory change Memory loss Concentration deficit 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 ([facility]) PTSD (post-traumatic stress disorder) ([facility]) Posttraumatic stress disorder Bipolar affective disorder, remission status unspecified ([facility]) Family history of dementia Family [...] Edema Pre-diabetes Other abnormal glucose Morbid obesity ([facility]) Morbid obesity Yeast infection of the skin Candidiasis of skin and nails Tobacco dependence Tobacco use disorder Mood disorder ([facility]) Unspecified episodic mood disorder Primary hypertension ([facility]) Unspecified essential hypertension Left hip pain Pain in joint, pelvic region and thigh Open wound of anterior abdominal wall, initial encounter Primary hypertension ([facility])- Primary Unspecified essential hypertension Yeast infection of the skin Candidiasis of skin and nails Morbid obesity ([facility]) Morbid obesity Primary hypertension ([facility])- Primary Unspecified essential hypertension Allergic rhinitis, unspecified Acute cough Morbid obesity ([facility]) Morbid obesity Former cigarette smoker Personal history of tobacco use, presenting hazards to health Toxic metabolic encephalopathy- Primary Hemiparesis, right ([facility]) Unspecified hemiplegia affecting unspecified side Acute respiratory failure with hypoxia ([facility]) Heart murmur Undiagnosed cardiac murmurs Primary hypertension ([facility]) Unspecified essential hypertension Morbid obesity ([facility]) Morbid obesity Bipolar disorder with severe depression ([facility]) Slurred speech Other speech disturbance Bilateral lower extremity edema- Primary Primary hypertension ([facility]) Unspecified essential hypertension Lower extremity edema Edema Essential (primary) hypertension ([facility]) Unspecified essential hypertension Gastro-esophageal reflux disease without esophagitis Allergic rhinitis, unspecified Bilateral lower extremity edema- Primary Morbid (severe) obesity due to excess calories ([facility]) Body mass index (BMI) 45.0-49.9, adult ([facility]) Pre-diabetes Other abnormal glucose Bilateral lower extremity edema- Primary Essential (primary) hypertension ([facility]) Unspecified essential hypertension Allergic rhinitis, unspecified OSMANY (obstructive sleep apnea) Obstructive sleep apnea (adult) (pediatric) Primary hypertension ([facility]) Unspecified essential hypertension Morbid obesity ([facility]) Morbid obesity Acute cystitis without hematuria- Primary Tobacco dependence Tobacco use disorder Needs flu shot Need for prophylactic vaccination and inoculation against influenza Morbid obesity ([facility]) Morbid obesity Well woman exam with routine gynecological exam- Primary Routine gynecological examination Morbid obesity ([facility]) Morbid obesity Restless leg Restless legs syndrome (RLS) Metabolic encephalopathy- Primary OSMANY (obstructive sleep apnea) Obstructive sleep apnea (adult) (pediatric) Morbid obesity ([facility]) Morbid obesity Bilateral lower extremity edema Tobacco dependence Tobacco use disorder Bipolar disorder with severe depression ([facility]) At risk for polypharmacy Anxiety [...] Edema Pre-diabetes Other abnormal glucose Morbid obesity ([facility]/HCC) Morbid obesity Yeast infection of the skin Candidiasis of skin and nails Tobacco dependence Tobacco use disorder Mood disorder ([facility]/HCC) Unspecified episodic mood disorder Primary hypertension ([facility]) Unspecified essential hypertension Left hip pain Pain in joint, pelvic region and thigh Open wound of anterior abdominal wall, initial encounter Primary hypertension ([facility]/HCC)- Primary Unspecified essential hypertension Yeast infection of the skin Candidiasis of skin and nails Morbid obesity ([facility]) Morbid obesity Primary hypertension ([facility])- Primary Unspecified essential hypertension Allergic rhinitis, unspecified Acute cough Morbid obesity ([facility]) Morbid obesity Former cigarette smoker Personal history of tobacco use, presenting hazards to health Toxic metabolic encephalopathy- Primary Hemiparesis, right ([facility]) Unspecified hemiplegia affecting unspecified side Acute respiratory failure with hypoxia ([facility]) Heart murmur Undiagnosed cardiac murmurs Primary hypertension ([facility]) Unspecified essential hypertension Morbid obesity ([facility]) Morbid obesity Bipolar disorder with severe depression ([facility]) Slurred speech Other speech disturbance Bilateral lower extremity edema- Primary Primary hypertension ([facility]) Unspecified essential hypertension Lower extremity edema Edema Essential (primary) hypertension ([facility]) Unspecified essential hypertension Gastro-esophageal reflux disease without esophagitis Allergic rhinitis, unspecified Bilateral lower extremity edema- Primary Morbid (severe) obesity due to excess calories ([facility]) Body mass index (BMI) 45.0-49.9, adult ([facility]) Pre-diabetes Other abnormal glucose Bilateral lower extremity edema- Primary Essential (primary) hypertension ([facility]/HCC) Unspecified essential hypertension Allergic rhinitis, unspecified OSMANY (obstructive sleep apnea) Obstructive sleep apnea (adult) (pediatric) Primary hypertension ([facility]) Unspecified essential hypertension Morbid obesity ([facility]) Morbid obesity Acute cystitis without hematuria- Primary Tobacco dependence Tobacco use disorder Needs flu shot Need for prophylactic vaccination and inoculation against influenza Morbid obesity ([facility]/HCC) Morbid obesity Well woman exam with routine gynecological exam- Primary Routine gynecological examination Morbid obesity (CMS/HCC) Morbid obesity Metabolic encephalopathy- Primary OSMANY (obstructive sleep apnea) Obstructive sleep apnea (adult) (pediatric) Morbid obesity ([facility]/HCC) Morbid obesity Bilateral lower extremity edema Tobacco dependence Tobacco use disorder Bipolar disorder with severe depression ([facility]) At risk for polypharmacy Anxiety Anxiety state, unspecified Primary hypertension ([facility]) Unspecified essential hypertension Right bundle branch block (RBBB) determined by electrocardiography [facility] Diagnosis Yeast infection of the skin- Primary Candidiasis of skin and nails documented [facility]* Diagnosis 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 Restless leg Restless legs syndrome (RLS) Metabolic encephalopathy documented in this [facility]* Diagnosis OSMANY (obstructive sleep apnea)- Primary Obstructive sleep apnea (adult) (pediatric) Restless leg Restless legs syndrome (RLS) documented in [facility]* Diagnosis Bilateral lower extremity edema- Primary Essential (primary) hypertension ([facility]/HCC) Unspecified essential hypertension Allergic rhinitis, unspecified OSMNAY (obstructive sleep apnea) Obstructive sleep apnea (adult) (pediatric) Primary hypertension ([facility]) Unspecified essential hypertension Morbid obesity ([facility]) Morbid obesity documented in this [...] Edema Pre-diabetes Other abnormal glucose Morbid obesity ([facility]) Morbid obesity Yeast infection of the skin Candidiasis of skin and nails Tobacco dependence Tobacco use disorder Mood disorder ([facility]) Unspecified episodic mood disorder Primary hypertension ([facility]) Unspecified essential hypertension Left hip pain Pain in joint, pelvic region and thigh Open wound of anterior abdominal wall, initial encounter Primary hypertension ([facility])- Primary Unspecified essential hypertension Yeast infection of the skin Candidiasis of skin and nails Morbid obesity ([facility]/HCC) Morbid obesity Primary hypertension ([facility]/HCC)- Primary Unspecified essential hypertension Allergic rhinitis, unspecified Acute cough Morbid obesity ([facility]) Morbid obesity Former cigarette smoker Personal history of tobacco use, presenting hazards to health Toxic metabolic encephalopathy- Primary Hemiparesis, right ([facility]) Unspecified hemiplegia affecting unspecified side Acute respiratory failure with hypoxia ([facility]) Heart murmur Undiagnosed cardiac murmurs Primary hypertension ([facility]) Unspecified essential hypertension Morbid obesity ([facility]) Morbid obesity Bipolar disorder with severe depression ([facility]) Slurred speech Other speech disturbance Bilateral lower extremity edema- Primary Primary hypertension ([facility]) Unspecified essential hypertension Lower extremity edema Edema Essential (primary) hypertension ([facility]) Unspecified essential hypertension Gastro-esophageal reflux disease without esophagitis Allergic rhinitis, unspecified Bilateral lower extremity edema- Primary Morbid (severe) obesity due to excess calories ([facility]) Body mass index (BMI) 45.0-49.9, adult ([facility]) Pre-diabetes Other abnormal glucose Bilateral lower extremity edema- Primary Essential (primary) hypertension ([facility]) Unspecified essential hypertension Allergic rhinitis, unspecified OSMANY (obstructive sleep apnea) Obstructive sleep apnea (adult) (pediatric) Primary hypertension ([facility]) Unspecified essential hypertension Morbid obesity ([facility]) Morbid obesity Acute cystitis without hematuria- Primary Tobacco dependence Tobacco use disorder Needs flu shot Need for prophylactic vaccination and inoculation against influenza Morbid obesity ([facility]) Morbid obesity Well woman exam with routine gynecological exam- Primary Routine gynecological examination Morbid obesity ([facility]) Morbid obesity Metabolic encephalopathy- Primary OSMANY (obstructive sleep apnea) Obstructive sleep apnea (adult) (pediatric) Morbid obesity ([facility]) Morbid obesity Bilateral lower extremity edema Tobacco dependence Tobacco use disorder Bipolar disorder with severe depression ([facility]) At risk for polypharmacy Anxiety Anxiety state, unspecified Primary hypertension ([facility]) Unspecified essential hypertension Right bundle branch block (RBBB) determined by electrocardiography Metabolic encephalopathy- Primary Memory change Memory loss Altered mental status, unspecified altered mental status type Concentration deficit PTSD (post-traumatic stress disorder) ([facility]) Posttraumatic stress disorder Bipolar affective disorder, remission status unspecified ([facility]) Family history of dementia Family history of other neurological diseases 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[facility]) OSMANY (obstructive sleep apnea) Obstructive [...] Edema Pre-diabetes Other abnormal glucose Morbid obesity ([facility]) Morbid obesity Yeast infection of the skin Candidiasis of skin and nails Tobacco dependence Tobacco use disorder Mood disorder (CMS/HCC) Unspecified episodic mood disorder Primary hypertension ([facility]/HCC) Unspecified essential hypertension Left hip pain Pain in joint, pelvic region and thigh Open wound of anterior abdominal wall, initial encounter Primary hypertension (CMS/HCC)- Primary Unspecified essential hypertension Yeast infection of the skin Candidiasis of skin and nails Morbid obesity (CMS/HCC) Morbid obesity Primary hypertension (CMS/HCC)- Primary Unspecified essential hypertension Allergic rhinitis, unspecified Acute cough Morbid obesity ([facility]) Morbid obesity Former cigarette smoker Personal history of tobacco use, presenting hazards to health Toxic metabolic encephalopathy- Primary Hemiparesis, right (CMS/[facility]) Unspecified hemiplegia affecting unspecified side Acute respiratory failure with hypoxia ([facility]) Heart murmur Undiagnosed cardiac murmurs Primary hypertension ([facility]) Unspecified essential hypertension Morbid obesity ([facility]) Morbid obesity Bipolar disorder with severe depression ([facility]) Slurred speech Other speech disturbance Bilateral lower extremity edema- Primary Primary hypertension ([facility]/HCC) Unspecified essential hypertension Lower extremity edema Edema Essential (primary) hypertension ([facility]) Unspecified essential hypertension Gastro-esophageal reflux disease without esophagitis Allergic rhinitis, unspecified Bilateral lower extremity edema- Primary Morbid (severe) obesity due to excess calories ([facility]) Body mass index (BMI) 45.0-49.9, adult ([facility]) Pre-diabetes Other abnormal glucose Bilateral lower extremity edema- Primary Essential (primary) hypertension ([facility]) Unspecified essential hypertension Allergic rhinitis, unspecified OSMANY (obstructive sleep apnea) Obstructive sleep apnea (adult) (pediatric) Primary hypertension ([facility]) Unspecified essential hypertension Morbid obesity ([facility]) Morbid obesity Acute cystitis without hematuria- Primary Tobacco dependence Tobacco use disorder Needs flu shot Need for prophylactic vaccination and inoculation against influenza Morbid obesity (CMS/HCC) Morbid obesity Well woman exam with routine gynecological exam- Primary Routine gynecological examination Morbid obesity ([facility]/HCC) Morbid obesity Metabolic encephalopathy- Primary OSMANY (obstructive sleep apnea) Obstructive sleep apnea (adult) (pediatric) Morbid obesity ([facility]/HCC) Morbid obesity Bilateral lower extremity edema Tobacco dependence Tobacco use disorder Bipolar disorder with severe depression ([facility]) At risk for polypharmacy Anxiety Anxiety state, unspecified Primary hypertension ([facility]/HCC) Unspecified essential hypertension Right bundle branch block (RBBB) determined by electrocardiography Transient alteration of awareness- Primary Restless leg Restless legs syndrome (RLS) documented in this encounter [facility]* Diagnosis Encounter for annual [...] (CMS/HCC) Unspecified episodic mood disorder Primary hypertension ([facility]) Unspecified essential hypertension Left hip pain Pain in joint, pelvic region and thigh Open wound of anterior abdominal wall, initial encounter Primary hypertension ([facility]/HCC)- Primary Unspecified essential hypertension Yeast infection of the skin Candidiasis of skin and nails Morbid obesity ([facility]/HCC) Morbid obesity Primary hypertension ([facility])- Primary Unspecified essential hypertension Allergic rhinitis, unspecified Acute cough Morbid obesity ([facility]) Morbid obesity Former cigarette smoker Personal history of tobacco use, presenting hazards to health Toxic metabolic encephalopathy- Primary Hemiparesis, right ([facility]) Unspecified hemiplegia affecting unspecified side Acute respiratory failure with hypoxia ([facility]) Heart murmur Undiagnosed cardiac murmurs Primary hypertension ([facility]) Unspecified essential hypertension Morbid obesity ([facility]) Morbid obesity Bipolar disorder with severe depression ([facility]) Slurred speech Other speech disturbance Bilateral lower extremity edema- Primary Primary hypertension ([facility]) Unspecified essential hypertension Lower extremity edema Edema Essential (primary) hypertension ([facility]) Unspecified essential hypertension Gastro-esophageal reflux disease without esophagitis Allergic rhinitis, unspecified Bilateral lower extremity edema- Primary Morbid (severe) obesity due to excess calories ([facility]) Body mass index (BMI) 45.0-49.9, adult ([facility]) Pre-diabetes Other abnormal glucose Bilateral lower extremity edema- Primary Essential (primary) hypertension ([facility]/HCC) Unspecified essential hypertension Allergic rhinitis, unspecified OSMANY (obstructive sleep apnea) Obstructive sleep apnea (adult) (pediatric) Primary hypertension ([facility]/HCC) Unspecified essential hypertension Morbid obesity ([facility]) Morbid obesity Acute cystitis without hematuria- Primary Tobacco dependence Tobacco use disorder Needs flu shot Need for prophylactic vaccination and inoculation against influenza Morbid obesity (CMS/HCC) Morbid obesity Well woman exam with routine gynecological exam- Primary Routine gynecological examination Morbid obesity (CMS/HCC) Morbid obesity Metabolic encephalopathy- Primary OSMANY (obstructive sleep apnea) Obstructive sleep apnea (adult) (pediatric) Morbid obesity ([facility]/HCC) Morbid obesity Bilateral lower extremity edema Tobacco dependence Tobacco use disorder Bipolar disorder with severe depression ([facility]) At risk for polypharmacy Anxiety Anxiety state, unspecified Primary hypertension ([facility]) Unspecified essential hypertension Right bundle branch block (RBBB) determined by electrocardiography Primary hypertension ([facility])- Primary Unspecified essential hypertension Chronic kidney disease, stage 3a (HCC) ([facility]) Morbid (severe) obesity due to excess calories ([facility]) Body mass index (BMI) 45.0-49.9, adult ([facility]) OSMANY (obstructive sleep apnea) Obstructive sleep apnea (adult) (pediatric) Hemiparesis, right ([facility]) Unspecified hemiplegia affecting unspecified side Gastroesophageal reflux disease, unspecified whether esophagitis present Metabolic encephalopathy Essential (primary) hypertension ([facility]) Unspecified essential hypertension Allergic rhinitis, unspecified Gastro-esophageal reflux disease without esophagitis Bilateral lower extremity edema documented in this encounter [facility]* Diagnosis Encounter for annual wellness visit (AWV) in Medicare patient- Primary OSMANY (obstructive sleep apnea) Obstructive sleep apnea (adult) (pediatric) Chronic pain disorder Chronic pain syndrome Gastroesophageal reflux disease, unspecified whether esophagitis present Overactive bladder Hypertonicity of bladder Lower extremity edema Edema Pre-diabetes Other abnormal glucose Morbid obesity ([facility]) Morbid obesity Yeast infection of the skin Candidiasis of skin and nails Tobacco dependence Tobacco use disorder Mood disorder ([facility]) Unspecified episodic mood disorder Primary hypertension ([facility]) Unspecified essential hypertension Left hip pain Pain in joint, pelvic region and thigh Open wound of anterior abdominal wall, initial encounter Primary hypertension ([facility]/HCC)- Primary Unspecified essential hypertension Yeast infection of the skin Candidiasis of skin and nails Morbid obesity ([facility]/HCC) Morbid obesity Primary hypertension ([facility]/HCC)- Primary Unspecified essential hypertension Allergic rhinitis, unspecified Acute cough Morbid obesity ([facility]) Morbid obesity Former cigarette smoker Personal history of tobacco use, presenting hazards to health Toxic metabolic encephalopathy- Primary Hemiparesis, right ([facility]) Unspecified hemiplegia affecting unspecified side Acute respiratory failure with hypoxia ([facility]) Heart murmur Undiagnosed cardiac murmurs Primary hypertension ([facility]) Unspecified essential hypertension Morbid obesity ([facility]) Morbid obesity Bipolar disorder with severe depression ([facility]) Slurred speech Other speech disturbance Bilateral lower extremity edema- Primary Primary hypertension ([facility]) Unspecified essential hypertension Lower extremity edema Edema Essential (primary) hypertension ([facility]) Unspecified essential hypertension Gastro-esophageal reflux disease without esophagitis Allergic rhinitis, unspecified Bilateral lower extremity edema- Primary Morbid (severe) obesity due to excess calories ([facility]) Body mass index (BMI) 45.0-49.9, adult ([facility]) Pre-diabetes Other abnormal glucose Bilateral lower extremity edema- Primary Essential (primary) hypertension ([facility]) Unspecified essential hypertension Allergic rhinitis, unspecified OSMANY (obstructive sleep apnea) Obstructive sleep apnea (adult) (pediatric) Primary hypertension ([facility]) Unspecified essential hypertension Morbid obesity ([facility]) Morbid obesity Acute cystitis without hematuria- Primary Tobacco dependence Tobacco use disorder Needs flu shot Need for prophylactic vaccination and inoculation against influenza Morbid obesity ([facility]) Morbid obesity Well woman exam with routine gynecological exam- Primary Routine gynecological examination Morbid obesity ([facility]) Morbid obesity Metabolic encephalopathy- Primary OSMANY (obstructive sleep apnea) Obstructive sleep apnea (adult) (pediatric) Morbid obesity ([facility]) Morbid obesity Bilateral lower extremity edema Tobacco dependence Tobacco use disorder Bipolar disorder with severe depression ([facility]) At risk for polypharmacy Anxiety Anxiety state, unspecified Primary hypertension ([facility]) Unspecified essential hypertension Right bundle branch block (RBBB) determined by electrocardiography Primary hypertension ([facility])- Primary Unspecified essential hypertension Chronic kidney disease, stage 3a (HCC) ([facility]) Morbid (severe) obesity due to excess calories ([facility]) Body mass index (BMI) 45.0-49.9, adult ([facility]) OSMANY (obstructive sleep apnea) Obstructive sleep apnea (adult) (pediatric) Hemiparesis, right ([facility]) Unspecified hemiplegia affecting unspecified side Gastroesophageal reflux disease, unspecified whether esophagitis present Metabolic encephalopathy Essential (primary) hypertension ([facility]) Unspecified essential hypertension Allergic rhinitis, unspecified Gastro-esophageal reflux disease without esophagitis Bilateral lower extremity edema 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 ([facility])- Primary OSMANY (obstructive sleep apnea) Obstructive sleep apnea (adult) (pediatric) Metabolic encephalopathy Restless leg Restless legs syndrome (RLS) Degeneration of intervertebral disc of lumbar region with discogenic back pain and lower extremity pain documented in this encounter [facility] HealthcareEvaluation note* Diagnosis Encounter for annual wellness visit (AWV) in Medicare patient- Primary OSMANY (obstructive sleep apnea) Obstructive sleep apnea (adult) (pediatric) Chronic pain disorder Chronic pain syndrome Gastroesophageal reflux disease, unspecified whether esophagitis present Overactive bladder Hypertonicity of bladder Lower extremity edema Edema Pre-diabetes Other abnormal glucose Morbid obesity ([facility]/HCC) Morbid obesity Yeast infection of the skin Candidiasis of skin and nails Tobacco dependence Tobacco use disorder Mood disorder (CMS/HCC) Unspecified episodic mood disorder Primary hypertension ([facility]) Unspecified essential hypertension Left hip pain Pain in joint, pelvic region and thigh Open wound of anterior abdominal wall, initial encounter Primary hypertension ([facility]/HCC)- Primary Unspecified essential hypertension Yeast infection of the skin Candidiasis of skin and nails Morbid obesity ([facility]/HCC) Morbid obesity Primary hypertension ([facility])- Primary Unspecified essential hypertension Allergic rhinitis, unspecified Acute cough Morbid obesity ([facility]) Morbid obesity Former cigarette smoker Personal history of tobacco use, presenting hazards to health Toxic metabolic encephalopathy- Primary Hemiparesis, right ([facility]) Unspecified hemiplegia affecting unspecified side Acute respiratory failure with hypoxia ([facility]) Heart murmur Undiagnosed cardiac murmurs Primary hypertension ([facility]) Unspecified essential hypertension Morbid obesity ([facility]) Morbid obesity Bipolar disorder with severe depression ([facility]) Slurred speech Other speech disturbance Bilateral lower extremity edema- Primary Primary hypertension ([facility]) Unspecified essential hypertension Lower extremity edema Edema Essential (primary) hypertension ([facility]) Unspecified essential hypertension Gastro-esophageal reflux disease without esophagitis Allergic rhinitis, unspecified Bilateral lower extremity edema- Primary Morbid (severe) obesity due to excess calories ([facility]) Body mass index (BMI) 45.0-49.9, adult ([facility]) Pre-diabetes Other abnormal glucose Bilateral lower extremity edema- Primary Essential (primary) hypertension ([facility]/HCC) Unspecified essential hypertension Allergic rhinitis, unspecified OSMANY (obstructive sleep apnea) Obstructive sleep apnea (adult) (pediatric) Primary hypertension ([facility]/HCC) Unspecified essential hypertension Morbid obesity ([facility]) Morbid obesity Acute cystitis without hematuria- Primary Tobacco dependence Tobacco use disorder Needs flu shot Need for prophylactic vaccination and inoculation against influenza Morbid obesity (CMS/HCC) Morbid obesity Well woman exam with routine gynecological exam- Primary Routine gynecological examination Morbid obesity ([facility]/HCC) Morbid obesity Metabolic encephalopathy- Primary OSMANY (obstructive sleep apnea) Obstructive sleep apnea (adult) (pediatric) Morbid obesity ([facility]/HCC) Morbid obesity Bilateral lower extremity edema Tobacco dependence Tobacco use disorder Bipolar disorder with severe depression ([facility]) At risk for polypharmacy Anxiety Anxiety state, unspecified Primary hypertension ([facility]) Unspecified essential hypertension Right bundle branch block (RBBB) determined by electrocardiography Primary hypertension ([facility])- Primary Unspecified essential hypertension Chronic kidney disease, stage 3a (HCC) ([facility]) Morbid (severe) obesity due to excess calories ([facility]) Body mass index (BMI) 45.0-49.9, adult ([facility]) OSMANY (obstructive sleep apnea) Obstructive sleep apnea (adult) (pediatric) Hemiparesis, right ([facility]) Unspecified hemiplegia affecting unspecified side Gastroesophageal reflux disease, unspecified whether esophagitis present Metabolic encephalopathy Essential (primary) hypertension ([facility]) Unspecified essential hypertension Allergic rhinitis, unspecified Gastro-esophageal reflux disease without esophagitis Bilateral lower extremity edema Restless leg Restless legs syndrome (RLS) documented in this encounter [facility] HealthcareEvaluation note* Diagnosis Encounter for annual wellness visit (AWV) in Medicare patient- Primary OSMANY (obstructive sleep apnea) Obstructive sleep apnea (adult) (pediatric) Chronic pain disorder Chronic pain syndrome Gastroesophageal reflux disease, unspecified whether esophagitis present Overactive bladder Hypertonicity of bladder Lower extremity edema Edema Pre-diabetes Other abnormal glucose Morbid obesity ([facility]) Morbid obesity Yeast infection of the skin Candidiasis of skin and nails Tobacco dependence Tobacco use disorder Mood disorder ([facility]) Unspecified episodic mood disorder Primary hypertension ([facility]) Unspecified essential hypertension Left hip pain Pain in joint, pelvic region and thigh Open wound of anterior abdominal wall, initial encounter Primary hypertension ([facility]/HCC)- Primary Unspecified essential hypertension Yeast infection of the skin Candidiasis of skin and nails Morbid obesity ([facility]) Morbid obesity Primary hypertension ([facility])- Primary Unspecified essential hypertension Allergic rhinitis, unspecified Acute cough Morbid obesity ([facility]) Morbid obesity Former cigarette smoker Personal history of tobacco use, presenting hazards to health Toxic metabolic encephalopathy- Primary Hemiparesis, right ([facility]) Unspecified hemiplegia affecting unspecified side Acute respiratory failure with hypoxia ([facility]) Heart murmur Undiagnosed cardiac murmurs Primary hypertension ([facility]) Unspecified essential hypertension Morbid obesity ([facility]) Morbid obesity Bipolar disorder with severe depression ([facility]) Slurred speech Other speech disturbance Bilateral lower extremity edema- Primary Primary hypertension ([facility]/HCC) Unspecified essential hypertension Lower extremity edema Edema Essential (primary) hypertension ([facility]) Unspecified essential hypertension Gastro-esophageal reflux disease without esophagitis Allergic rhinitis, unspecified Bilateral lower extremity edema- Primary Morbid (severe) obesity due to excess calories ([facility]) Body mass index (BMI) 45.0-49.9, adult ([facility]) Pre-diabetes Other abnormal glucose Bilateral lower extremity edema- Primary Essential (primary) hypertension ([facility]) Unspecified essential hypertension Allergic rhinitis, unspecified OSMANY (obstructive sleep apnea) Obstructive sleep apnea (adult) (pediatric) Primary hypertension ([facility]) Unspecified essential hypertension Morbid obesity ([facility]) Morbid obesity Acute cystitis without hematuria- Primary Tobacco dependence Tobacco use disorder Needs flu shot Need for prophylactic vaccination and inoculation against influenza Morbid obesity ([facility]) Morbid obesity Well woman exam with routine gynecological exam- Primary Routine gynecological examination Morbid obesity ([facility]) Morbid obesity Metabolic encephalopathy- Primary OSMANY (obstructive sleep apnea) Obstructive sleep apnea (adult) (pediatric) Morbid obesity ([facility]) Morbid obesity Bilateral lower extremity edema Tobacco dependence Tobacco use disorder Bipolar disorder with severe depression ([facility]) At risk for polypharmacy Anxiety Anxiety state, unspecified Primary hypertension ([facility]) Unspecified essential hypertension Right bundle branch block (RBBB) determined by electrocardiography Primary hypertension ([facility])- Primary Unspecified essential hypertension Chronic kidney disease, stage 3a (HCC) ([facility]) Morbid (severe) obesity due to excess calories ([facility]) Body mass index (BMI) 45.0-49.9, adult ([facility]) OSMANY (obstructive sleep apnea) Obstructive sleep apnea (adult) (pediatric) Hemiparesis, right ([facility]) Unspecified hemiplegia affecting unspecified side Gastroesophageal reflux disease, unspecified whether esophagitis present Metabolic encephalopathy Essential (primary) hypertension ([facility]) Unspecified essential hypertension Allergic rhinitis, unspecified Gastro-esophageal reflux disease without esophagitis Bilateral lower extremity edema URI, acute- Primary Acute upper respiratory infections of unspecified site documented in this encounter [facility] HealthcareHistory and physical note Author Jace Graham [place] March 23, 2023 11:21am Note Date/Time March 23, 2023 11:21am [facility] [address] [place] [address] Gastroenterology H&P Signed Patient: Michelle Be MR#: [id number] : 1960 Acct:[id number] Age/Sex: 62 / F Adm Date: 3 Loc: Room: Type: [facility] Attending Dr: Jace Graham MD Copies [...] by Jace Graham MD> 03/23/23 [address] [facility] Work Phone: History general [...] see above surg Hospitalization History stroke 2018 [facility] Other Hospital Discharge instructions Additional Instructions Regular [...] years. -Follow up with PCP. -Office number [phone].[facility] Work Phone: Reason for visit Narrative* Consultation (Routine) - Closed Specialty Diagnoses / Procedures Referred By Contac t Referred To Contact Neuropsychology Diagnoses Memory change Procedures [place] OFFICE/OUTPATIENT [facility] Juany Ramirez PA [address] [place] [address] Phone: tel: fax: David Foster, PhD [address] [phone] Phone: tel: fax: Referral ID Status Reason Start Date Expiration Date V isits Requested Visits Authorized [id number] Closed Specialty Services Required 03/07/2024 09/03/2024 1 1 [facility] Healthcare Summary Purpose Family History No [...] Documents on File Type Date Recorded Patient Outsole Tacker Expl anation Power of Batch Plant Supervisor 03/10/2024 3:12 PM POA Documents on File Type Date Recorded Patient Outsole Tacker Expl anation Power of Batch Plant Supervisor 03/10/2024 3:12 PM POA Documents on File Type Date Recorded Patient Outsole Tacker Expl anation Power of Batch Plant Supervisor 03/16/2024 9:42 AM darian atkins of attorney law clerk Power of Batch Plant Supervisor 03/10/2024 3:12 PM POA Chief Complaint and Reason for Visit Chief Complaint Bipolar Depression Reason for Visit Allergies Bipolar 2 disorder Hypertension Morbid obesity with BMI of 45.0-49.9, adult OSMANY (obstructive sleep apnea) Restless legs syndrome Chief Complaint Screening Additional Source Comments INFORMATION SOURCE (unrecogn ized section and content) DATE CREATED AUTHOR 02/18/2019 [facility] DATE CREATED AUTHOR AUTHOR'S ORGANIZ ATION 11/15/2021 Chavez Josemanuel [facility] DATE CREATED AUTHOR AUTHOR'S ORGANIZ ATION 08/16/2022 [facility] DATE CREATED AUTHOR AUTHOR'S ORGANIZ ATION 05/25/2024 [facility] EPIC DATE CREATED AUTHOR AUTHOR'S ORGANIZ ATION 05/28/2024 [facility] DATE CREATED AUTHOR AUTHOR'S ORGANIZ ATION 07/04/2024 [facility] Care Teams (unrecognized sec tion [...] MD Other Provider Active Joellen Le , FOOD PRODUCTS TESTER-C Other Provider Active Severo Yancey MD Other Provider Active Rao Webber MD Other Provider Active Yuan Shi MD Other Provider Active Delroy Ramirez MD Other Provider Active Berta Comer , DO Other Provider Active Negrito Ruiz , DO Other Provider Active Lacho Singh , DO Other Provider Active Rachana Obika , ORACLE BRM DEVELOPER Other Provider Active Rob Lake , DO Other Provider Active Jeff Alvarez MD Other Provider Active Urmila Rinaldi ORACLE BRM DEVELOPER Other Provider Active Bina Mayberry APRN Other Provider Active Mir Bradford MD Other Provider Active Te Da Silva MD Other Provider Active Debra Landaverde RN Other Provider Active Team Status: Inactive Member Role Status Dates Adelaida Hebob Primary Care Provider Active Jace Graham MD Attending Provider Active [employer] Relationship Specialty Start Date End Date José Luis Roberts MD [address] [place] [address] PCP - General Family Medicine 05/18/23 Adelaida Carrion NP [address] [place] [address] Referring Physician Nurse Practitioner 10/14/22 [employer] Relationship Specialty Start Date End Date José Luis Roberts MD [address] [place] [address] PCP - General Family Medicine 05/18/23 Adelaida Carrion NP [address] [place] [address] Referring Physician Nurse Practitioner 10/14/22 Blocklayer Relationship Specialty Start Date End Date José Luis Roberts MD [address] [place] [address] PCP - General Family Medicine 05/18/23 Adelaida Carrion NP [address] [place] [address] Referring Physician Nurse Practitioner 10/14/22 Blocklayer Relationship Specialty Start Date End Date José Luis Roberts MD [address] [place] [address] PCP - General Family Medicine 05/18/23 Adelaida Carrion NP Referring Physician Nurse Practitioner 10/14/22 Miriam Suarez DO [address] [place], [place] [address] Referring Physician Neurology 06/29/23 [place] LPN Licensed Practical Nurse Family Medicine 12/18/23 [employer]layer Relationship Specialty Start Date End Date José Luis Roberts MD [address] [place] [address] PCP - General Family Medicine 05/18/23 Adelaida Carrion, BRIANA Referring Physician Nurse Practitioner 10/14/22 Miriam Suarez DO [address] [place] [address] Referring Physician Neurology 06/29/23 [place] LPN Licensed Practical Nurse Family Medicine 12/18/23 [employer]layer Relationship Specialty Start Date End Date Unallocated, Familias MD [address] [place] [address] PCP - General Family Medicine 01/27/24 Miriam Suarez DO [address] [place] [address] Referring Physician Neurology 06/29/23 [place] LPN Licensed Practical Nurse Family Medicine 12/18/23 Adelaida Carrion, BRIANA [address] [place] [address] Nurse Practitioner Family Medicine 01/27/24 Blocklayer Relationship Specialty Start Date End Date Unallocated, Noms MD [address] [address] PCP - General Family Medicine 01/27/24 Miriam Suarez DO [address] [place] [address] Referring Physician Neurology 06/29/23 [place] LPN Licensed Practical Nurse Family Medicine 12/18/23 Adelaida Carrion NP [address] [place] [address] Nurse Practitioner Family Medicine 01/27/24 Blocklayer Relationship Specialty Start Date End Date José Luis Roberts MD [address] [place] [address] PCP - General Family Medicine 02/02/24 Miriam Suarez DO [address] [place] [address] Referring Physician Neurology 06/29/23 [place] LPN Licensed Practical Nurse Family Medicine 12/18/23 Adelaida Carrion NP [address] [place] [place] [address] Nurse Practitioner Family Medicine 01/27/24 Blocklayer Relationship Specialty Start Date End Date José Luis Roberts MD [address] [place] [address] PCP - General Family Medicine 02/02/24 Miriam Suarez DO [address] [place] [id number] Referring Physician Neurology 06/29/23 Adelaida Carrion NP [address] [place] [address] Nurse Practitioner Family Medicine 01/27/24 Bong Rosado MA Family Medicine 02/12/24 Blocklayer Relationship Specialty Start Date End Date José Luis Roberts MD [address] [place] [address] PCP - General Family Medicine 02/02/24 Miriam Suarez DO [address] [place], [place] [address] Referring Physician Neurology 06/29/23 Adelaida Carrion, BRIANA [address] [place] [address] Nurse Practitioner Family Medicine 01/27/24 Bong Rosado MA [facility] Medicine 02/12/24 Blocklayer Relationship Specialty Start Date End Date José Luis Roberts MD [address] [place] [address] PCP - General Family Medicine 02/02/24 Miriam Suarez DO [address] [place], [place] [id number] Referring Physician Neurology 06/29/23 Adelaida Carrion NP [address] [place] [address] Nurse Practitioner Family Medicine 01/27/24 Bong Rosado MA Family Medicine 02/12/24 Blocklayer Relationship Specialty Start Date End Date José Luis Roberts MD [address] [place] [address] PCP - General Family Medicine 02/02/24 Miriam Suarez DO [address] [place], [place] [address] Referring Physician Neurology 06/29/23 Adelaida Carrion NP [address] [place] [address] Nurse Practitioner Family Medicine 01/27/24 Bong Rosado MA Family Medicine 02/12/24 Blocklayer Relationship Specialty Start Date End Date José Luis Roberts MD [address] [place] [address] PCP - General Family Medicine 02/02/24 Miriam Suarez DO [address] [place] [address] Referring Physician Neurology 06/29/23 Adelaida Carrion NP [address] [place] [address] Nurse Practitioner Family Medicine 01/27/24 Bong Rosado MA Family Medicine 02/12/24 Blocklayer Relationship Specialty Start Date End Date José Luis Roberts MD [address] [place] [address] PCP - General Family Medicine 02/02/24 Miriam Suarez DO [address] [place] [id number] Referring Physician Neurology 06/29/23 Adelaida Carrion NP [address] [place] [address] Nurse Practitioner Family Medicine 01/27/24 Bong Rosado MA Family Medicine 02/12/24 Blocklayer Relationship Specialty Start Date End Date José Luis Roberts MD [address] [place] [address] PCP - General Family Medicine 02/02/24 Miriam Suarez DO [address] [place], [place] [address] Referring Physician Neurology 06/29/23 Adelaida Carrion, BRIANA [address] [place] [address] Nurse Practitioner Family Medicine 01/27/24 Bong Rosado MA [facility] Medicine 02/12/24 Blocklayer Relationship Specialty Start Date End Date José Luis Roberts MD [address] [place] [address] PCP - General Family Medicine 02/02/24 Miriam Suarez DO [address] [place], [place] [address] Referring Physician Neurology 06/29/23 Adelaida Carrion NP [address] [place] [address] Nurse Practitioner Family Medicine 01/27/24 Bong Rosado MA Family Medicine 02/12/24 Blocklayer Relationship Specialty Start Date End Date José Luis Roberts MD [address] [place] [address] PCP - General Family Medicine 02/02/24 Miriam Suarez DO [address] [place], [place] [address] Referring Physician Neurology 06/29/23 Adelaida Carrion NP [address] [place] [address] Nurse Practitioner Family Medicine 01/27/24 Bong Rosado MA Family Medicine 02/12/24 Blocklayer Relationship Specialty Start Date End Date José Luis Roberts MD [address] [place] [address] PCP - General Family Medicine 02/02/24 Miriam Suarez DO [address] [place] [address] Referring Physician Neurology 06/29/23 Adelaida Carrion NP [address] [place] [address] Nurse Practitioner Family Medicine 01/27/24 Bong Rosado MA Family Medicine 02/12/24 Blocklayer Relationship Specialty Start Date End Date José Luis Roberts MD [address] [place] [address] PCP - General Family Medicine 02/02/24 Miriam Suarez DO [address] [place] [address] Referring Physician Neurology 06/29/23 Adelaida Carrion NP [address] [place] [address] Nurse Practitioner Family Medicine 01/27/24 Bong Rosado MA Family Medicine 02/12/24 Blocklayer Relationship Specialty Start Date End Date José Luis Roberts MD [address] [place] [address] PCP - General Family Medicine 05/18/23 Adelaida Carrion NP Referring Physician Nurse Practitioner 10/14/22 Miriam Suarez DO [address] [place], [place] [address] Referring Physician Neurology 06/29/23 Mathew Parra LPN Licensed Practical Nurse Family Medicine 07/23/23 Blocklayer Relationship Specialty Start Date End Date José Luis Roberts MD [address] [place] [address] PCP - General Family Medicine 05/18/23 Adelaida Carrion NP Referring Physician Nurse Practitioner 10/14/22 Miriam Suarez DO [address] [place] [address] Referring Physician Neurology 06/29/23 Mathew Parra LPN Licensed Practical Nurse Family Medicine 07/23/23 Blocklayer Relationship Specialty Start Date End Date José Luis Roberts MD [address] [place] [address] PCP - General Family Medicine 05/18/23 Adelaida Carrion, FOOD PRODUCTS TESTER Referring Physician Nurse Practitioner 10/14/22 Miriam Suarez DO [address] [place] [address] Referring Physician Neurology 06/29/23 Mathew Parra LPN Licensed Practical Nurse Family Medicine 07/23/23 Blocklayer Relationship Specialty Start Date End Date José Luis Roberts MD [address] [place] [address] PCP - General Family Medicine 05/18/23 Adelaida Carrion [employer] Referring Physician Nurse Practitioner 10/14/22 Miriam Suarez DO [address] [place] [address] Referring Physician Neurology 06/29/23 Mathew Parra LPN Licensed Practical Nurse Family Medicine 07/23/23 Blocklayer Relationship Specialty Start Date End Date José Luis Roberts MD [address] [place] [phone] PCP - General Family Medicine 05/18/23 Adelaida Carrion NP Referring Physician Nurse Practitioner 10/14/22 Miriam Suarez DO [address] [place] [address] Referring Physician Neurology 06/29/23 [place] De Leon LPN Licensed Practical Nurse Family Medicine 12/18/23 Blocklayer Relationship Specialty Start Date End Date José Luis Roberts MD [address] [place] [phone] PCP - General Family Medicine 05/18/23 Adelaida Carrion NP Referring Physician Nurse Practitioner 10/14/22 Miriam Suarez DO [address] [place] [address] Referring Physician Neurology 06/29/23 [place] De Leon LPN Licensed Practical Nurse Family Medicine 12/18/23 Blocklayer Relationship Specialty Start Date End Date José Luis Roberts MD [address] [place] [phone] PCP - General Family Medicine 05/18/23 Adelaida Carrion NP Referring Physician Nurse Practitioner 10/14/22 Miriam Suarez DO [address] [place] [address] Referring Physician Neurology 06/29/23 [place] De Leon LPN Licensed Practical Nurse Family Medicine 12/18/23 Blocklayer Relationship Specialty Start Date End Date José Luis Roberts MD [address] [place] [phone] PCP - General Family Medicine 02/02/24 Miriam Suarez DO [address] [place] [address] Referring Physician Neurology 06/29/23 Adelaida Carrion, BRIANA [address] [place] [phone] Nurse Practitioner Family Medicine 01/27/24 Bong Rosado MA Family Medicine 02/12/24 Blocklayer Relationship Specialty Start Date End Date José Luis Roberts MD [address] [place] [phone] PCP - General Family Medicine 02/02/24 Miriam Suarez DO [address] [place], [place] [id number] Referring Physician Neurology 06/29/23 Adelaida Carrion, BRIANA [address] [place] [phone] Nurse Practitioner Family Medicine 01/27/24 Bong Rosado MA Family Medicine 02/12/24 Blocklayer Relationship Specialty Start Date End Date José Luis Roberts MD [address] [place] [phone] PCP - General Family Medicine 02/02/24 Miriam Suarez DO [address] [place], [place] [address] Referring Physician Neurology 06/29/23 Adelaida Carrion NP [address] [place] [phone] Nurse Practitioner Family Medicine 01/27/24 Bong Rosado MA Family Medicine 02/12/24 Blocklayer Relationship Specialty Start Date End Date José Luis Roberts MD [address] [place] [phone] PCP - General Family Medicine 02/02/24 Miriam Suarez DO [address] [place] [address] Referring Physician Neurology 06/29/23 Adelaida Carrion NP [address] [place] [phone] Nurse Practitioner Family Medicine 01/27/24 Bong Rosado MA Family Medicine 02/12/24 Blocklayer Relationship Specialty Start Date End Date José Luis Roberts MD [address] [place] [phone] PCP - General Family Medicine 02/02/24 Miriam Suarez DO [address] [place] [address] Referring Physician Neurology 06/29/23 Adelaida Carrion NP [address] [place] [phone] Nurse Practitioner Family Medicine 01/27/24 Bong Rosado MA Family Medicine 02/12/24 Blocklayer Relationship Specialty Start Date End Date José Luis Roberts MD [address] [place] [phone] PCP - General Family Medicine 02/02/24 Miriam Suarez DO [address] [place] [address] Referring Physician Neurology 06/29/23 Adelaida Carrion NP [address] [place] [address] Nurse Practitioner Family Medicine 01/27/24 Bong [...] BE BASED ON THE PRIMARY CLINICAL RECORDS. [employer] provides no warranty or guarantee of the accuracy or completeness of information in this document.
--- NOTE | 2024-07-24 07:08 | ED_ITS ---
HPI HPI - General Adult General Chief complaint: Shortness of Breath/Dyspnea Stated complaint: SOB Time Seen by Provider: 07/24/24 07:08 Source: patient Mode of arrival: walk-in Limitations: no limitations History of Present Illness HPI narrative: Patient is a 63-year-old female coming to the ER with 4 days history of coughing associated chest pain whenever she take a deep breath, and whitish sputum No difficulty breathing she does use inhaler but she does not smoke and she does not have asthma And the patient has been exposed to her multiple family members who had similar symptoms Related Data Home Medications ?Medication ?Instructions ?Recorded ?Confirmed amlodipine 10 mg tablet (Norvasc) 10 mg PO DAILY 09/10/22 07/18/24 biotin 1 mg capsule 5 mg PO DAILY 09/10/22 07/18/24 cariprazine 4.5 mg capsule 4.5 mg PO Q24H 09/10/22 07/18/24 (Vraylar) cetirizine 10 mg tablet (24Hour 10 mg PO DAILY PRN allergy symptoms 09/10/22 07/18/24 Allergy) duloxetine 60 mg capsule,delayed 60 mg PO BID 09/10/22 07/18/24 release ferrous sulfate 325 mg (65 mg 325 mg PO BID 09/10/22 07/18/24 iron) tablet (FeroSul) losartan 50 mg tablet (Cozaar) 100 mg PO DAILY 09/10/22 07/18/24 magnesium 200 mg tablet 400 mg PO QDAY 09/10/22 07/18/24 melatonin 12 mg tablet 12 mg PO .HS PRN sleep 09/10/22 07/18/24 omeprazole 20 mg capsule,delayed 20 mg PO QDAY 09/10/22 07/18/24 release ropinirole 4 mg tablet 4 mg PO QDAY 09/10/22 07/18/24 trazodone 150 mg tablet 150 mg PO .HS 09/10/22 07/18/24 fluticasone propionate 50 1 spray intranasal DAILY PRN 10/20/23 07/18/24 mcg/actuation nasal allergy symptoms spray,suspension (Flonase Allergy Relief) spironolactone 50 mg tablet 50 mg PO DAILY 10/20/23 07/18/24 gabapentin 300 mg capsule 300 mg PO BID 11/03/23 07/18/24 calcium citrate 200 mg PO QID 11/04/23 07/18/24 carvedilol 12.5 mg tablet 12.5 mg PO Q12H 11/04/23 07/18/24 multivitamin 1 tab PO DAILY 11/04/23 07/18/24 Previous Rx's ?Medication ?Instructions ?Recorded tizanidine 2 mg tablet 2 mg PO TID PRN muscle spasticity 10/01/23 #90 tabs diclofenac sodium 50 mg 50 mg PO Q12H PRN pain #14 tabs 07/24/24 tablet,delayed release guaifenesin 1,200 mg tablet, 1,200 mg PO BID PRN cough #14 tabs 07/24/24 extended release 12 hr (Mucus Relief ER) Allergies Allergy/AdvReac Type Severity Reaction Status Date / Time levetiracetam (From Keppra) Allergy Severe Unknown Verified 07/18/24 07:08 adhesive Allergy Intermediate Blister Verified 07/18/24 07:08 Penicillins Allergy Intermediate Unknown Verified 07/18/24 07:08 tetracycline Allergy Intermediate Unknown Verified 07/18/24 07:08 eszopiclone (From Lunesta) Allergy Unknown Verified 07/18/24 07:08 milnacipran (From Savella) AdvReac Intermediate Agitated Verified 07/18/24 07:08 prochlorperazine (From AdvReac Intermediate Agitated Verified 07/18/24 07:08 Compazine) Opioid HPI Opioid Management Most Recent Opioid Data: Last Pain Scale 4 07/18/24 07:03 07/18/24 Ur Phencyclidine Scrn Negative (NEGATIVE) 03/02/24 04:46 02/05 10/27 Review of Systems ROS Status of ROS 10 or more systems reviewed and unremark able except as noted in history and below [facility] Medical History FH: bariatric surgery ?Z84.89 - Family history of other specified conditions (ICD-10) Upper back pain ?M54.9 - Dorsalgia, unspecified (ICD-10) Osteoarthritis ?M19.90 - Unspecified osteoarthritis, unspecified site (ICD-10) Neck pain ?M54.2 - Cervicalgia (ICD-10) Low back pain ?M54.50 - Low back pain, unspecified (ICD-10) Fibromyalgia ?M79.7 - Fibromyalgia (ICD-10) Bipolar 1 disorder ?F31.9 - Bipolar disorder, unspecified (ICD-10) Acid reflux ?K21.9 - Gastro-esophageal reflux disease without esophagitis (ICD-10) Obesity ?E66.9 - Obesity, unspecified (ICD-10) Sleep apnea ?G47.30 - Sleep apnea, unspecified (ICD-10) Heart murmur ?R01.1 - Cardiac murmur, unspecified (ICD-10) High cholesterol ?E78.00 - Pure hypercholesterolemia, unspecified (ICD-10) Hypertension ?I10 - Essential (primary) hypertension (ICD-10) Surgical History S/P dilatation and curettage ?Z98.890 - Other specified postprocedural states (ICD-10) H/O breast biopsy ?Z98.890 - Other specified postprocedural states (ICD-10) S/P ORIF (open reduction internal fixation) fracture ?Z98.890 - Other specified postprocedural states (ICD-10) ?Z87.81 - Personal history of (healed) traumatic fracture (ICD-10) Hx of laparoscopic gastric banding ?Z98.84 - Bariatric surgery status (ICD-10) History of tonsillectomy and adenoidectomy ?Z90.89 - Acquired absence of other organs (ICD-10) History of appendectomy ?Z90.49 - Acquired absence of other specified parts of digestive tract (ICD- 10) History of hemilaminectomy ?Z98.890 - Other specified postprocedural states (ICD-10) History of cholecystectomy ?Z90.49 - Acquired absence of other specified parts of digestive tract (ICD- 10) Previous section ?Z98.891 - History of uterine scar from previous surgery (ICD-10) Social History Smoking status: Former smoker Little interest or pleasure in doing things: not at all Feeling down, depressed, or hopeless: not at all Exam Narrative Exam Narrative: Nurses notes and vital signs reviewed and patient is not hypoxic. General: Well-appearing and in no apparent distress. Skin: Warm, dry, no pallor noted. No rash. Head: Normocephalic, atraumatic. Neck: Supple, non-tender. Eye: Pupils are equal, round and EOMI. No scleral icterus. Cardiovascular: Regular Rate and Rhythm without murmur, gallop or rub. Respiratory: No accessory muscle use or respiratory distress. Lungs are clear to auscultation, no wheezing, rales or rhonchi Chest Wall: no tenderness Back: No midline thoracic or lumbar vertebral tenderness. No CVA tenderness Musculoskeletal: normal ROM, no calf or popliteal tenderness, no lower extremity edema/swelling GI: Abdomen is soft, non-distended. Normal bowel sounds. No masses appreciated. No tenderness to palpation. No rebound, guarding, or rigidity noted. Neurological: A&O x4. No cranial nerve dysfunction observed. No truncal ataxia. Moves all extremities. Sensation intact. Psychiatric: Cooperative and interactive. Normal mood and affect. Constitutional Vital Signs, click to edit/add: Last Vital Signs Pulse 98 H 07/24/24 09:09 Resp 16 07/24/24 06:56 BP 123/73 07/24/24 06:56 Pulse Ox 96 07/24/24 09:09 O2 Del Method Room Air 07/24/24 09:09 Course Vital Signs Vital signs: Vital Signs Pulse Rate 70 07/24/24 06:56 Respiratory Rate 16 07/24/24 06:56 Blood Pressure 123/73 07/24/24 06:56 Pulse Oximetry 96 07/24/24 06:56 Oxygen Delivery Method Room Air 07/24/24 06:56 Pulse Rate 98 H 07/24/24 09:09 Respiratory Rate 16 07/24/24 06:56 Blood Pressure 123/73 07/24/24 06:56 Pulse Oximetry 96 07/24/24 09:09 Oxygen Delivery Method Room Air 07/24/24 09:09 Medical Decision Making [facility] Narrative Medical decision making narrative: The patient is coming to the ER with symptoms of possible bronchitis after being exposed to other family members with similar symptoms Chest x-ray showed no acute pathology and her blood workup did not show any significant acute pathology The patient was discharged home with supportive care Mucinex as well as Voltaren for pain The patient is to follow up with primary care physician in next 2-3 days or to return to the emergency department should any of the signs or symptoms worsen or new symptoms develop. The patient agrees with the following Diagnosis and Treatment plan and the patient will be discharged home. Lab Data Labs: Lab Results 07/24/24 Range/Units 07:40 WBC 7.8 (4.0-11.0) 10^3/uL RBC 4.19 L (4.20-5.40) 10^6/uL Hgb 12.3 (12.0-16.0) g/dL Hct 37.5 (36.0-48.0) % MCV 89.5 (81.0-99.0) fL MCH 29.4 (26.7-34.0) pg MCHC 32.8 (29.9-35.2) g/dL RDW 13.8 (11.0-15.0) % Plt Count 272 (150-450) 10^3/uL MPV 10.9 (9.5-13.5) fL Neut % (Auto) 66.9 (43.0-75.0) % Lymph % (Auto) 18.3 L (20.5-60.0) % [place] % (Auto) 8.7 (1.7-12.0) % Eos % (Auto) 4.4 (0.9-7.0) % Baso % (Auto) 0.9 (0.2-2.0) % Neut # (Auto) 5.2 (1.4-6.5) 10^3/uL Lymph # (Auto) 1.4 (1.2-3.8) 10^3/uL [place] # (Auto) 0.7 (0.3-0.8) 10^3/uL Eos # (Auto) 0.3 (0.0-0.7) 10^3/uL Baso # (Auto) 0.1 (0.0-0.1) 10^3/uL Abs Immat Gran (auto) 0.06 H (0.00-0.03) 10^3/uL Imm/Tot Granulo (auto) 0.8 H (0.0-0.5) % Sodium 139 (136-145) mmol/L Potassium 4.8 (3.5-5.1) mmol/L Chloride 103 (98-107) mmol/L Carbon Dioxide 27.8 (21.0-32.0) mmol/L Anion Gap 13.0 BUN 21.0 H (7.0-18.0) mg/dL Creatinine 1.09 H (0.55-1.02) mg/dL Est GFR ( Amer) >60 (>=60 mL/min/1.73m^2) Est GFR (Non-Af Amer) 51 L (>=60 mL/min/1.73m^2) BUN/Creatinine Ratio 19.3 Glucose 100 (74-106) mg/dL Calcium 8.8 (8.5-10.1) mg/dL Total Bilirubin 0.4 (0.2-1.0) mg/dL AST 19 (15-37) U/L ALT 21 (14-59) U/L Alkaline Phosphatase 101 (46-116) U/L Total Protein 7.1 (6.4-8.2) g/dL Albumin 3.6 (3.4-5.0) g/dL Globulin 3.5 g/dL Albumin/Globulin Ratio 1.0 Discharge Plan Discharge Chief Complaint: Shortness of Breath/Dyspnea Clinical Impression: Acute chest wall pain, Bronchitis Patient Disposition: Home, Self-Care Time of Disposition Decision: 09:47 Condition: Good Prescriptions / Home Meds: New guaifenesin [Mucus Relief ER] 1,200 mg tablet extended release 12hr 1,200 mg PO BID PRN (Reason: cough) Qty: 14 0RF diclofenac sodium 50 mg tablet,delayed release (DR/EC) 50 mg PO Q12H PRN (Reason: pain ) Qty: 14 0RF No Action omeprazole 20 mg capsule,delayed release(DR/EC) 20 mg PO QDAY ropinirole 4 mg tablet 4 mg PO QDAY duloxetine 60 mg capsule,delayed release(DR/EC) 60 mg PO BID Vraylar 4.5 mg capsule 4.5 mg PO Q24H biotin 1 mg capsule 5 mg PO DAILY ferrous sulfate [FeroSul] 325 mg (65 mg iron) tablet 325 mg PO BID losartan [Cozaar] 50 mg tablet 100 mg PO DAILY magnesium 200 mg tablet 400 mg PO QDAY melatonin 12 mg tablet 12 mg PO .HS PRN (Reason: sleep) amlodipine [Norvasc] 10 mg tablet 10 mg PO DAILY cetirizine [24Hour Allergy] 10 mg tablet 10 mg PO DAILY PRN (Reason: allergy symptoms) trazodone 150 mg tablet 150 mg PO .HS tizanidine 2 mg tablet 2 mg PO TID PRN (Reason: muscle spasticity) Qty: 90 2RF gabapentin 300 mg capsule 300 mg PO BID carvedilol 12.5 mg tablet 12.5 mg PO Q12H calcium citrate 200 mg (950 mg) tablet 200 mg PO QID multivitamin Tablet 1 tab PO DAILY fluticasone propionate [Flonase Allergy Relief] 50 mcg/actuation spray,suspension 1 spray intranasal DAILY PRN (Reason: allergy symptoms) Rx Instructions: administer into each nostril spironolactone 50 mg tablet 50 mg PO DAILY Print Language: Czech Instructions: Pleurisy (DC), Acute Bronchitis (ED) Referrals: Adelaida Carrion [employer] [Primary Care Provider] - 1 week Discharge Date/Time: 07/24/24 09:59
[2024-07-24 07:49] LABS: Basophils Absolute Auto 0.1 10^3/uL (0.0-0.1); Basophils Percent Auto 0.9 % (0.2-2.0); Eosinophils Absolute Auto 0.3 10^3/uL (0.0-0.7); Eosinophils Percent Auto 4.4 % (0.9-7.0); Hematocrit 37.5 % (36.0-48.0); Hemoglobin 12.3 g/dL (12.0-16.0); Immature Granulocytes Abs Auto 0.06 10^3/uL (0.00-0.03); Immature Granulocytes Pct Auto 0.8 % (0.0-0.5); Lymphocytes Absolute Auto 1.4 10^3/uL (1.2-3.8); Lymphocytes Percent Auto 18.3 % (20.5-60.0); Mean Corpuscular HGB Conc 32.8 g/dL (29.9-35.2); Mean Corpuscular Hemoglobin 29.4 pg (26.7-34.0); Mean Corpuscular Volume 89.5 fL (81.0-99.0); Mean Platelet Volume 10.9 fL (9.5-13.5); Monocytes Absolute Auto 0.7 10^3/uL (0.3-0.8); Monocytes Percent Auto 8.7 % (1.7-12.0); Neutrophils Absolute Auto 5.2 10^3/uL (1.4-6.5); Neutrophils Percent Auto 66.9 % (43.0-75.0); Platelet Count 272 10^3/uL (150-450); Red Blood Count 4.19 10^6/uL (4.20-5.40); Red Cell Distribution Width 13.8 % (11.0-15.0); White Blood Count 7.8 10^3/uL (4.0-11.0)
[2024-07-24 08:15] LABS: Alanine Aminotransferase 21 U/L (14-59); Albumin Level 3.6 g/dL (3.4-5.0); Alkaline Phosphatase 101 U/L (46-116); Aspartate Amino Transferase 19 U/L (15-37); BUN Creatinine Ratio 19.3; Bilirubin Total 0.4 mg/dL (0.2-1.0); Calcium 8.8 mg/dL (8.5-10.1); Carbon Dioxide 27.8 mmol/L (21.0-32.0); Chloride 103 mmol/L (98-107); Estimated GFR (African America >60 (>=60 mL/min/1.73m^2); Estimated GFR (Non-African Ame 51 (>=60 mL/min/1.73m^2); Globulin 3.5 g/dL; Glucose 100 mg/dL (74-106); Potassium 4.8 mmol/L (3.5-5.1); Sodium 139 mmol/L (136-145); Total Protein 7.1 g/dL (6.4-8.2)
[2024-07-24] MEDS: KETOROLAC TROMETHAMINE 60 MG/2 ML VIAL IM (09:05)
[2024-07-24] MEDS: IPRATROPIUM/ALBUTEROL SULFATE 3 ML AMPUL.NEB IH (09:08)
[2024-07-24 09:09] VITALS: PULSE 98; O2SAT 96
== END 2024-07-24 09:59 | disposition home or self-care (01) ==
PROVIDERS: Emergency Provider Emergency Medicine; PCP Nurse Practitioner
DX: J40 Bronchitis, not specified as acute or chronic (principal); R07.89 Other chest pain; R06.02 Shortness of breath; Z98.84 Bariatric surgery status; Z90.49 Acquired absence of other specified parts of digestive tract; Z87.891 Personal history of nicotine dependence
CPT/HCPCS: 36415; 71045; 80053; 85025; 94640; 96372; 99285; J1885

== ENCOUNTER 2024-07-28 11:24 | Outpatient (OUT) | payer MEDICARE, SELFPAY ==
--- NOTE | 2024-07-28 11:50 | PM.CN ---
Consult Note: HPI Data of Consult Patient: known to practice within the last 3 years Requesting Physician: Bhakti Culp NP Primary Care Provider: Adelaida Carrion NP Consult Narrative Reason for consult: f/u Narrative: Nasim Ingram a 63 year old female with longstanding low back pain and right shoulder pain presents for evaluation. has engaged in provider guided HEP > 6 weeks without benefit, failed tylenol heat and ice, cannot utilize NSAIDs with hx of gastric bypass. currently utilizing gabapentin, tizanidine, duloxetine with mild benefit, denies side effects. recently underwent bilateral L1/2 L2/3 RFA with >50% improvement ongoing. previously found significant benefit to suprascapular RFAs. recently underwent right suprascapular and axillary nerve block with 90% improvement in pain for 4 hours. preop pain up to 10/10 post op pain 1/10 with significant improvement in ADLs and housework. cc:: CC: Bhakti Culp NP Review of Systems ROS Status of ROS 10 or more systems reviewed and unremarkable except as noted in history and below Musculoskeletal Reports: back pain and joint pain PFSH PFS Medical History FH: bariatric surgery ?Z84.89 - Family history of other specified conditions (ICD-10) Upper back pain ?M54.9 - Dorsalgia, unspecified (ICD-10) Osteoarthritis ?M19.90 - Unspecified osteoarthritis, unspecified site (ICD-10) Neck pain ?M54.2 - Cervicalgia (ICD-10) Low back pain ?M54.50 - Low back pain, unspecified (ICD-10) Fibromyalgia ?M79.7 - Fibromyalgia (ICD-10) Bipolar 1 disorder ?F31.9 - Bipolar disorder, unspecified (ICD-10) Acid reflux ?K21.9 - Gastro-esophageal reflux disease without esophagitis (ICD-10) Obesity ?E66.9 - Obesity, unspecified (ICD-10) Sleep apnea ?G47.30 - Sleep apnea, unspecified (ICD-10) Heart murmur ?R01.1 - Cardiac murmur, unspecified (ICD-10) High cholesterol ?E78.00 - Pure hypercholesterolemia, unspecified (ICD-10) Hypertension ?I10 - Essential (primary) hypertension (ICD-10) Surgical History S/P dilatation and curettage ?Z98.890 - Other specified postprocedural states (ICD-10) H/O breast biopsy ?Z98.890 - Other specified postprocedural states (ICD-10) S/P ORIF (open reduction internal fixation) fracture ?Z98.890 - Other specified postprocedural states (ICD-10) ?Z87.81 - Personal history of (healed) traumatic fracture (ICD-10) Hx of laparoscopic gastric banding ?Z98.84 - Bariatric surgery status (ICD-10) History of tonsillectomy and adenoidectomy ?Z90.89 - Acquired absence of other organs (ICD-10) History of appendectomy ?Z90.49 - Acquired absence of other specified parts of digestive tract (ICD-10) History of hemilaminectomy ?Z98.890 - Other specified postprocedural states (ICD-10) History of cholecystectomy ?Z90.49 - Acquired absence of other specified parts of digestive tract (ICD-10) Previous section ?Z98.891 - History of uterine scar from previous surgery (ICD-10) Social History Smoking status: Former smoker Little interest or pleasure in doing things: not at all Feeling down, depressed, or hopeless: not at all Meds Home Medications and Allergies Home Medications ?Medication ?Instructions ?Recorded ?Confirmed ?Type amlodipine 10 mg tablet (Norvasc) 10 mg PO DAILY 09/10/22 07/18/24 History biotin 1 mg capsule 5 mg PO DAILY 09/10/22 07/18/24 History cariprazine 4.5 mg capsule 4.5 mg PO Q24H 09/10/22 07/18/24 History (Vraylar) cetirizine 10 mg tablet (24Hour 10 mg PO DAILY PRN allergy symptoms 09/10/22 07/18/24 History Allergy) duloxetine 60 mg capsule,delayed 60 mg PO BID 09/10/22 07/18/24 History release ferrous sulfate 325 mg (65 mg 325 mg PO BID 09/10/22 07/18/24 History iron) tablet (FeroSul) losartan 50 mg tablet (Cozaar) 100 mg PO DAILY 09/10/22 07/18/24 History magnesium 200 mg tablet 400 mg PO QDAY 09/10/22 07/18/24 History melatonin 12 mg tablet 12 mg PO .HS PRN sleep 09/10/22 07/18/24 History omeprazole 20 mg capsule,delayed 20 mg PO QDAY 09/10/22 07/18/24 History release ropinirole 4 mg tablet 4 mg PO QDAY 09/10/22 07/18/24 History trazodone 150 mg tablet 150 mg PO .HS 09/10/22 07/18/24 History tizanidine 2 mg tablet 2 mg PO TID PRN muscle spasticity 10/01/23 07/18/24 Rx #90 tabs fluticasone propionate 50 1 spray intranasal DAILY PRN 10/20/23 07/18/24 History mcg/actuation nasal allergy symptoms spray,suspension (Flonase Allergy Relief) spironolactone 50 mg tablet 50 mg PO DAILY 10/20/23 07/18/24 History gabapentin 300 mg capsule 300 mg PO BID 11/03/23 07/18/24 History calcium citrate 200 mg PO QID 11/04/23 07/18/24 History carvedilol 12.5 mg tablet 12.5 mg PO Q12H 11/04/23 07/18/24 History multivitamin 1 tab PO DAILY 11/04/23 07/18/24 History diclofenac sodium 50 mg 50 mg PO Q12H PRN pain #14 tabs 07/24/24 Rx tablet,delayed release guaifenesin 1,200 mg tablet, 1,200 mg PO BID PRN cough #14 tabs 07/24/24 Rx extended release 12 hr (Mucus Relief ER) Allergies Allergy/AdvReac Type Severity Reaction Status Date / Time levetiracetam (From Kera) Allergy Severe Unknown Verified 07/18/24 07:08 adhesive Allergy Intermediate Blister Verified 07/18/24 07:08 Penicillins Allergy Intermediate Unknown Verified 07/18/24 07:08 tetracycline Allergy Intermediate Unknown Verified 07/18/24 07:08 eszopiclone (From Lunesta) Allergy Unknown Verified 07/18/24 07:08 milnacipran (From Savella) AdvReac Intermediate Agitated Verified 07/18/24 07:08 prochlorperazine (From AdvReac Intermediate Agitated Verified 07/18/24 07:08 Compazine) Exam Constitutional Documenting provider has reviewed patient's vital signs: yes Common normals: no apparent distress, oriented x3, healthy appearing, alert and well nourished General appearance: cooperative HENMT Common normals: normocephalic, hearing grossly normal bilaterally and moist oral mucous membranes Head and scalp: normocephalic Eye Common normals: PERRL Pupil: PERRL Neck & C-Spine Common normals: full ROM General: normal visual inspection Chest Common normals: inspection of chest normal Respiratory Common normals: normal respiratory effort, no retractions and no use of accessory muscles Back & Pelvis Thoracic spine/upper back: ROM limited Lumbar spine/lower back: straight leg raise negative bilaterally; no pain with ROM, no lumbar spinal tenderness, no paraspinal muscle tenderness and no paraspinal muscle spasm Other: strength 5/5 in BLE sensation intact BLE Extremity Right upper extremity: shoulder joint Right shoulder joint exam: inspection (normal to exam), palpation (tenderness noted over suprascapular and axillary pain pattern ), ROM (limited) and special tests Right shoulder special tests: Empty can test: Positive, Apley scratch test: Positive, Acromioclavicular (AC) compression test: Positive and Posterior apprehension test: Positive Neuro Common normals: oriented x3, CN's II-XII intact bilaterally, moves all extremities, no focal motor deficits, no sensory deficits noted and deep tendon reflexes 2+ bilaterally Sensorium/orientation: alert Motor exam: strength 5/5 throughout and no movement abnormalities noted Psych Common normals: mental status grossly normal, thought process normal, cooperative, affect normal, speech normal and activity/motor behavior normal Speech: normal speech Thought process: normal thought process Results Additional Findings Additional findings: If on a controlled substance or opioids, I have checked an [place] report on this patient and there are no aberrancies noted in the prescribing history.??If on a controlled substance or opioid a drug screen was completed and reviewed within the last year, and if there has not been a drug screen completed we ordered one today to monitor higher risk, state monitored pain medication use. As part of providing excellent, safe, comprehensive care, the following was completed at our patient's visit: 1. A medication reconciliation and review to ensure accurate knowledge of current/active medications, including asking our patients to inform us about any [id number] medications or herbal remedies/nutritional supplements/alternative remedies. 2. A review to specifically ensure our patients have had annual screening for screening for depression, screening for tobacco use, and screening for unhealthy alcohol use. For concerning screenings had a discussion with the patient, provided patient education, and recommended follow-up with primary care provider when appropriate. If patient noted with a risk of falling, they received education on strength, gait, and balance training to prevent future risk of falling. Portions of this note may have been carried over from the previous visit and updated as appropriate. Please note this office utilizes paper charting in addition to the electronic medical record. A list of current medications, vitals, and PMH is available there as the clinical staff outside of myself do not have access to [facility] [employer] charting during the clinic day operations. As part of providing quality comprehensive care the current medications, vitals, and PMH were reviewed in the paper chart. Assessment and Plan Assessment and Plan (1) Chronic right shoulder pain: (2) Lumbar spondylosis: Assessment and Plan: The patient has had over 3 months of moderate to severe back pain with functional impairment and inadequate response to conservative care including NSAIDS (unless there are contraindication such as concurrent blood thinners), multiple oral or topical pain medications, and home exercise program/physical therapy.? Patient has completed >6 weeks of guided home exercise program and/or formal physical therapy program without relief of their symptoms.? I have reviewed the imaging of the lumbar spine and no red flags were identified.? The imaging reveals radiographic findings consistent with lumbar spondylosis The Oswestry Disability Index was completed, and the patient scored a 47%.? The patient noted the following:?? moderate to severe pain, pain impacting ADLs, pain impacting ability to sit and walk for longer than 15 minutes, pain interrupting sleep social life and travel We discussed the risks and benefits of the procedure with the patient. ?The procedure will be completed with fluoroscopic guidance.? Plan proceed with right suprascapular and axillary nerve RFA with 10mg PO valium due to anxiety and discomfort with prior procedures per pt continue HEP as tolerated continue current medications through PCP and ordering providers f/u 1 month after RFA complete
== END 2024-07-28 11:25 | disposition home or self-care (01) ==
LOC: PM 11:24
PROVIDERS: PCP Nurse Practitioner; Visit Provider Nurse Practitioner
DX: M25.511 Pain in right shoulder (principal); M47.816 Spondylosis without myelopathy or radiculopathy, lumbar region
CPT/HCPCS: G0463

== ENCOUNTER 2024-08-08 08:11 | Day surgery (SDC) | payer MEDICARE, SELFPAY ==
[2024-08-08 08:49] VITALS: BP 138/84; PULSE 72; TEMP 36.5; O2SAT 95
[2024-08-08 09:37] VITALS: BP 142/72; BP 179/77; PULSE 65; PULSE 72; O2SAT 98; O2SAT 99
[2024-08-08] MEDS: LIDOCAINE HCL 2% 400 MG/20 ML MDV 10 ML INJ (09:39)
[2024-08-08] MEDS: METHYLPREDNISOLONE ACETATE 40 MG/ML VIAL INJ (09:39)
[2024-08-08] MEDS: BUPIVACAINE HCL 0.25% PF 25 MG/10 ML VIAL 2 ML INJ (09:39)
--- NOTE | 2024-08-08 09:42 | W.PM.PROCNOT ---
Date of procedure: 08/08/24 Pre-op diagnosis: Right shoulder pain Post-op diagnosis: same as pre-op Procedure: Procedure: Right suprascapular and axillary nerve radiofrequency ablation Medications: Bupivacaine 0.25% 3cc, lidocaine 2% 10cc, depomedrol 40mg The patient was seen and examined in the preoperative holding area. Informed consent was obtained and placed on the chart.? The patient was brought to the medical procedure unit and placed in the prone position. A timeout was completed verifying correct patient, procedure site, positioning, plan, and special equipment.? Using aseptic technique, under direct fluoroscopic visualization, a 20-gauge 15 cm with a 10 mm curved active tip radiofrequency cannula was advanced to the superior portion of the right posterior osseous rim of the glenoid fossa, lateral and superior to the spinal glenoid notch. Motor stimulation was carried out at 2 Hz up to 5 volts with the absence of extremity activity. Then radiofrequency lesioning was carried out for 90 seconds at 80 degrees.? The needle was then redirected 3 mm inferiorly and another lesioning was carried out for 90 seconds at 80 degree.? Using aseptic technique, under direct fluoroscopic visualization, another 20-gauge 15 cm with a 10 mm curved active tip radiofrequency cannula was advanced toward the most inferior and lateral border of the greater tubercle. Motor stimulation was carried out at 2 Hz up to 5 volts with the absence of extremity activity. Then radiofrequency lesioning was carried out for 90 seconds at 80 degrees.? The needle was then redirected 3 mm inferiorly and another lesioning was carried out for 90 seconds at 80 degree.? The patient was taken to the postprocedural recovery area and monitored for an appropriate length of time before being found suitable for discharge in the accompaniment of a responsible adult. Anesthesia: Local Surgeon: Syeda Mancuso Pathology: none sent Condition: stable Disposition: no change
== END 2024-08-08 09:48 | disposition home or self-care (01) ==
LOC: SURGOUT 08:11
PROVIDERS: PCP Nurse Practitioner; Visit Provider Anesthesiology
DX: M25.511 Pain in right shoulder (principal)
CPT/HCPCS: 64640; J0665; J1010

== ENCOUNTER 2024-08-25 03:59 | Emergency (ER) | payer MEDICARE, SELFPAY ==
--- OUTSIDE RECORDS SUMMARY | 2020-04-11 07:00 | XMS_ITS | Continuity of Care Document ---
Author Organization [facility] Address [address] [facility] [place] [address] Phone Care Team Providers Care Cardiology Consultant Name Role Phone Kayce Chanel CNP Unavailable [...] Copied on Encounter OFFICE/OUTPAT IENT VISIT, EST [facility], [address] [place] [address], [id number], [place] tel:[phone] [facility] No Information Darío Devries. [address] [place] [address], [id number], [place]. tel:[phone] Referring Provider: Kayce Chanel, [address] [place] [address] 222, [place], [address] . tel:[phone] [facility], [address] [place] [address] B, [place], [place], [address], [place] tel:[phone] [facility] No Information Darío Devries. [address], [place], [place], [address], [place]. tel:[phone] Referring Provider: Kayce Chanel, [address] [place] [address] [address], [place], [address] . tel:[phone] [facility], [address] [place] [address] [address], [place], [place], [address], [place] tel:[phone] [facility] No Information Darío Devries. [facility] [address], [place], [place], [address], [place]. tel:[phone] Referring Provider: Kayce Chanel, [address] [place] [address] [address], [place], [address] . tel:[phone] [facility], [address] [place] [address] [address], [place], [place], [address], [place] tel:[phone] [facility] No Information Darío Devries. [facility] [address], [place], [place], [address], [place]. tel:[phone] Referring Provider: Kayce Cahnel, [facility] [address], [place], [address] . tel:[phone] [facility], [address] [place] [address] [address], [place], [place], [address], [place] tel:[phone] [facility] No Information Darío Devries. [address] [place] [address] [address], [facility] [place], [id number], [place]. tel:[phone] Referring Provider: Kayce Chanel, [address] [place] [address] [address], [place], [address] . tel:[phone] [facility], [address] [place] [address] [address], [place], [place], [address], [place] tel:[phone] [facility] No Information Yulia Anguiano. [address] [facility] [address], [place], [place], [address], [place]. tel:[phone] Referring Provider: Silvio Acevedo, [address] [facility] [address], [place], [address] . tel:[phone] OFFICE/OUTPAT IENT VISIT, [facility], [address] [place] [address] [address], [place], [place], [address], [place] tel:[phone] [facility] No Information Yulia Anguiano. [address] [facility] [address], [place], [place], [address], [place]. tel:[phone] Referring Provider: Silvio Acevedo, [address] [facility] [address], [place], [address] . tel:[phone] [facility], [address] [place] [address] [address], [place], [place], [address], [place] tel:[phone] [facility] No Information No Information OFFICE/OUTPAT IENT VISIT, [facility], [address] [place] [address] [address], [place], [place], [address], [place] tel:[phone] [facility] No Information Yulia Anguiano. [address] [facility] [address], [place], [place], [address], [place]. tel:[phone] Referring Provider: Silvio Acevedo, [address] [facility] [address], [place], [address] . tel:[phone] OFFICE/OUTPAT IENT VISIT, [facility], [address] [place] [address] [address], [place], [place], [address], [place] tel:[phone] [facility] No Information Yulia Anguiano. [address] [facility] [address], [place], [place], [address], [place]. tel:[phone] Referring Provider: Silvio Acevedo, [address] [facility] [address], [place], [address] . tel:[phone] OFFICE/OUTPAT IENT VISIT, [facility], [address] [facility] [address], [place], [place], [address], [place] tel:[phone] [facility] No Information Yulia Anguiano. [address] [place] [address] [address], [place], [place], [address], [place]. tel:[phone] Referring Provider: Silvio Acevedo, [address] [place] [address] [address], [place], [address] . tel:[phone] Family History Family Member Type Diagnosis Age At Onset No Information Payers Payer name Insurance type Covered libertarian ID Authorgerard thakur(s) [facility] Medicare Solutions 16 [id number] Social History Type Description Quantity Date Captured [...]
--- OUTSIDE RECORDS SUMMARY | 2024-08-16 11:30 | XMS_ITS | Encounter Summary ---
Author Organization [facility] Address [address] [place] [address] Care Team Providers Care Industrial Pharmacist Name Role Phone Miriam Suarez Unavailable [phone] Adelaida Carrion NP Unavailable [phone] José Luis Roberts MD Primary Care Provider [phone] Bong Rosado MA Unavailable Unavailable Juany Leggett Unavailable Reason for Referral * Imaging (Routine) - Authorized Specialty Diagnoses / Procedures Referred By Contac t Referred To Contact Radiology Diagnoses Former cigarette smoker Procedures CT lung screening low dose Adelaida Carrion NP [address] [place] [address] Phone: tel: fax: [facility] Radiology Phone: tel: fax: Referral ID Status Reason Start Date Expiration Date V isits Requested Visits Authorized [id number] Authorized 08/16/2024 02/12/2025 1 1 Reason for Visit * Reason Comments Diabetes Encounter Details Date Type Department Care Team (Late st Contact Info) Description 08/16/2024 11:30 AM EDT [facility] [address] [place] [address] Adelaida Carrion NP [address] [place] [address] Primary hypertension (CMS/HCC) (Primary Dx); Bronchitis; Bilateral lower extremity edema; Morbid (severe) obesity due to excess calories (CMS/HCC); Pre-diabetes; Allergic rhinitis, unspecified seasonality, unspecified trigger; Encounter for screening mammogram for malignant neoplasm of breast; Former cigarette smoker Social History Tobacco Use Types Packs/Day Years Used Date Smoking Tobacco: Former Cigarettes 1 40 1 [id number] Smokeless Tobacco: Never Alcohol Use Standard Drinks/Week Comments Never 0 (1 standard drink = 0.6 oz pure alcohol) caffeine intake: 1-2 cups per day. Humiliation, Afraid, Rape, and Kick questionnair e Answer Date Recorded Within the last year, have y ou been afraid of your partner or ex-partner? No 05/18/2023 Within the last year, have y ou been humiliated or emotionally abused in other ways by your partner or ex-partner? No Within the last year, have y ou been kicked, hit, slapped, or otherwise physically hurt by your partner or ex-partner? No 05/18/2023 Within the last year, have y ou been raped or forced to have any kind of sexual activity by your partner or ex-partner? No 05/18/2023 Social Connection and Isolation Panel [NHANES] A nswer Date Recorded In a typical week, how many times do you talk on the phone with family, friends, or neighbors? Once a week 08/16/2023 How often do you get togethe r with friends or relatives? Patient declined 08/16/2023 How often do you attend mormon or episcopalian serv ices? Never 08/16/2023 Do you belong to any clubs o r organizations such as mormon groups, unions, fraternal or athletic groups, or school groups? No 08/16/2023 How often do you attend meet ings of the clubs or organizations you belong to? Patient declined 08/16/2023 Are you , , di vorced, , never , or living with a partner? 08/16/2023 AUDIT-C Answer Date Recorded Q1: How often do you have a drink containing alc ohol? Monthly or less 08/16/2023 Q2: How many drinks containi ng alcohol do you have on a typical day when you are drinking? Patient declined 08/16/2023 Q3: How often do you have si x or more drinks on one occasion? Never 08/16/2023 Overall Financial Resource Strain (CARDIA) Answe r Date Recorded How hard is it for you to pa y for the very basics like food, housing, medical care, and heating? Very hard 08/16/2023 PHQ-2 Answer Date Recorded Patient Health Questionnaire-2 Score 2 09/21/2023 [facility] Occupat ional Health - Occupational Stress Questionnaire Answer Date Recorded Do you feel stress - tense, restless, nervous, or anxious, or unable to sleep at night because your mind is troubled all the time - these days? To some extent 08/16/2023 Exercise Vital Sign Answer Date Recorde d On average, how many days pe r week do you engage in moderate to strenuous exercise (like a brisk walk)? 0 days 08/16/2023 On average, how many minutes do you engage in exercise at this level? 0 min 08/16/2023 Hunger Vital Sign Answer Date Recorded Within the past 12 months, y ou worried that your food would run out before you got the money to buy more. Sometimes true Within the past 12 months, t he food you bought just didn't last and you didn't have money to get more. Sometimes true 03/2024 PRAPARE - Transportation Answer Date Re corded In the past 12 months, has l ack of transportation kept you from medical appointments or from getting medications? No 08/04 In the past 12 months, has l ack of transportation kept you from meetings, work, or from getting things needed for daily living? No 08/16/2023 Housing Stability Vital Sign Answer Davon e Recorded In the last 12 months, was t here a time when you were not able to pay the mortgage or rent on time? Yes 08/16/2023 In the last 12 months, how many places have you lived? 1 08/16/2023 In the last 12 months, was t here a time when you did not have a steady place to sleep or slept in a longterm (including now)? No 08/16/2023 Housing Stability Vital Sign Answer Davon e Recorded In the last 12 months, was t here a time when you were not able to pay the mortgage or rent on time? Yes 08/16/2023 Number of Times Moved in the Last Year Not on fi le 08/16/2023 Homeless in the Last Year Not on file 2023 Comments Unknown Sex and Gender Information Value Date Recorded Sex Assigned at Female 10/01/2022 11:13 PM EDT Legal Sex Female 7:36 PM EDT Gender Identity Female 10/01/2022 11:13 PM EDT Sexual Orientation Straight 10/01/2022 11 :13 PM EDT documented as of this encounter Last Filed Vital Signs Vital Sign Reading Time Taken Comments Blood Pressure 120/82 08/16/2024 11:25 AM EDT Pulse 67 08/16/2024 11:25 AM EDT Temperature 36.9 C (98.5 F) 08/16/2024 11:25 AM EDT Respiratory Rate 18 08/16/2024 11:25 AM EDT Oxygen Saturation 97% 08/16/2024 11:25 AM EDT Inhaled Oxygen Concentration - - Weight 127 kg (281 lb) 08/16/2024 11:25 AM EDT Height - - Body Mass Index 48.23 07/26/2024 10:48 AM EDT documented in this encounter Patient Instructions * Patient Instructions* Adelaida Carrion NP - 08/16/2024 11:30 AM EDT Mammogram and lung cancer CT documented in this encounter Progress Notes * Adelaida Carrion NP - 08/16/2024 1:00 PM EDTAssociated Problem(s): Former cigarette smoker Patient meets requirements for low dose CT scan for lung cancer screening: age 55-80, patient is a current smoker or has quit in the last 15 years. Smoking history is > or equal to 30 pack-year. If needed the patient is able or willing to receive treatment. The patient is not currently exhibiting any s/s of lung cancer. We have discussed the benefits as well as harms of screening, follow up testing if needed, false positive rates. We have also discussed that this type of CT scan has less radiation exposure than a traditional lung CT scan. We have also discussed that it is important to follow with annual screening for this. The patient has also been counseled on the importance of smoking cessation. * Adelaida Carrion NP - 08/16/2024 1:00 PM EDTAssociated Problem(s): Allergic rhinitis Stop cetirizine, order naida * VALERIE LU - 08/16/2024 11:30 AM EDT Pt would like to discuss getting a CT low dose lung since she was a former smoker and has quit for 7 years Pt would also like to change her zyrtec to naida she feels that the zyrtec is not working for herany more and that she has been trying naida and it has been helping more. * Adelaida Carrion NP - 08/16/2024 11:30 AM EDT Images from the original note were not included. Nasim Ingram is a 63 y.o. female presents with chief complaint of Diabetes HPI: Allergies: would like to have rx for allergra, and stop cetirizine. Does not feel it works as well anymore HTN: no edema, chest pain, dyspnea, +compliant with taking her meds daily Cough has resolved since last seen SUBJECTIVE: MEDICATIONS: Current Outpatient Medications Medication Instructions amLODIPine (NORVASC) 10 mg, Oral, Daily biotin 5 MG tablet Pt taking OTC ([employer]) Calcium Citrate-Vitamin D (CITRACAL + D PO) Pt taking OTC ([employer]) carvedilol (COREG) 12.5 mg, Oral, 2 times daily with meals cetirizine (ZYRTEC) 10 mg, Oral, Daily diclofenac (Voltaren) 50 MG EC tablet DULoxetine (CYMBALTA) 60 mg, 2 times daily fluticasone (Flonase) 50 MCG/ACT nasal spray 2 sprays, Each Nostril, Daily gabapentin (NEURONTIN) 300 mg, Oral, 2 times daily, Due now losartan (COZAAR) 100 mg, Oral, Daily Magnesium 400 MG capsule Pt taking OTC([facility]) Melatonin 12 MG tablet 1 tablet, Nightly Multiple Vitamins-Minerals (BARIATRIC MULTIVITAMINS/IRON PO) Pt taking OTC ([facility]) omeprazole (PRILOSEC) 20 mg, Oral, Daily before breakfast rOPINIRole (REQUIP) 3 mg, Oral, Nightly spironolactone (ALDACTONE) 50 mg, [...] for appetite change, chills and fever. HENT: Positive for postnasal drip and rhinorrhea. Negative for congestion, ear pain and sore [...] Bipolar disorder with severe depression ([facility]) 05/18/2023 Brain lesion Brain vascular malformation Chronic pain disorder Closed fracture of patella 02/04/2018 Colon polyps Constipation Degenerative cervical disc Degenerative lumbar disc Depression ([facility]) 05/18/2023 Diastolic dysfunction Dizziness 05/18/2023 Dysphagia Fibromyalgia Fibromyalgia Gastrocnemius equinus GERD (gastroesophageal reflux disease) Heart murmur Hematoma of right breast Hemiparesis ([facility]) Hemiparesis, right ([facility]) Hemorrhoid int/external hemorrhoids Hiatal hernia Iron deficiency Left foot pain 03/25/2023 Lower extremity edema Mood disorder ([facility]) mixed mood disorder OSMANY (obstructive sleep apnea) Osteoporosis ([facility]) Overactive bladder Pre-diabetes Primary hypertension ([facility]) 03/25/2023 PTSD (post-traumatic stress disorder) ([facility]) Restless leg Right knee pain Right sided weakness S/P bariatric surgery Shingles Slurred speech Stroke ([facility]) 2018 Tenosynovitis, de [...] in her mother. OBJECTIVE: Visit Vitals BP 120/82 (BP Location: Left arm, Patient Position: Sitting, BP Cuff Size: Large adult long) Pulse 67 Temp 98.5 ??F (Temporal) Resp 18 Wt 281 lb SpO2 97% BMI 48.23 kg/m?? Smoking Status Former BSA 2.4 m?? Physical Exam Vitals and nursing note reviewed. Constitutional: General: She is not in acute distress. Appearance: Normal appearance. She is obese. HENT: Head: Normocephalic and atraumatic. Right Ear: Tympanic membrane, ear canal and external ear normal. Left Ear: Tympanic membrane, ear canal and external ear normal. Nose: Rhinorrhea present. Mouth/Throat: Mouth: Mucous membranes are moist. Pharynx: No oropharyngeal exudate or posterior oropharyngeal erythema. Eyes: Extraocular Movements: Extraocular movements intact. Conjunctiva/sclera: Conjunctivae normal. Neck: Vascular: No carotid bruit. Cardiovascular: Rate and Rhythm: Normal rate and regular rhythm. Pulses: Normal pulses. Heart sounds: Normal heart sounds. No murmur heard. Pulmonary: Effort: Pulmonary effort is normal. Breath sounds: Normal breath sounds. No wheezing or rhonchi. Abdominal: General: Bowel sounds are normal. There is no distension. Palpations: Abdomen is soft. There is no mass. Tenderness: There is no abdominal tenderness. Musculoskeletal: General: Normal range of motion. Cervical back: Normal range of motion and neck supple. Right lower leg: No edema. Left lower leg: No edema. Lymphadenopathy: Cervical: No cervical adenopathy. Skin: General: [...] Has had bariatric surgeries in the past Pre-diabetes Currently no meds A1c: 5.6% not on current therapy Relevant Orders POCT glycosylated hemoglobin (Hb A1C) docked device (Completed) Allergic rhinitis Stop cetirizine, order naida Relevant Medications fexofenadine (Naida) 180 MG tablet Encounter for screening mammogram for malignant neoplasm of breast Relevant Orders Bilateral screening mammogram Former cigarette smoker Patient meets requirements for low dose CT scan for lung cancer screening: age 55-80, patient is a current smoker or has quit in the last 15 years. Smoking history is > or equal to 30 pack-year. If needed the patient is able or willing to receive treatment. The patient is not currently exhibiting any s/s of lung cancer. We have discussed the benefits as well as harms of screening, follow up testing if needed, false positive rates. We have also discussed that this type of CT scan has less radiation exposure than a traditional lung CT scan. We have also discussed that it is important to follow with annual screening for this. The patient has also been counseled on the importance of smoking cessation. Relevant Orders CT lung screening low dose Bilateral lower extremity edema Stable with current dose of aldactone 50mg daily Primary hypertension (CMS/HCC) Please check blood pressure daily and record DASH diet Limit caffeine Take medication as directed Contact office if chest pain, pressure, dizziness, shortness of breath, swelling legs Recommend slow position changes Current meds: amlodipine, losartan Bronchitis - Primary At last appt added trelegy 100's resolved * Adelaida Carrion NP - 08/16/2024 6:34 AM EDTAssociated Problem(s): Pre-diabetes Currently no meds A1c: 5.6% not on current therapy * Adelaida Carrion NP - 08/16/2024 6:33 AM EDTAssociated Problem(s): Morbid (severe) obesity due to excess calories (CMS/HCC) Discussed with patient their BMI (actual, verses recommended). We have also discussed lifestyle modifications: attempts to perform physical activity as chronic conditions allow, also to monitor dietary intake: increasing protein/fruits/veggies and lowering carb intake (unless contraindicated). Limit sodas, juices, and sugary drinks. Has had bariatric surgeries in the past * Adelaida Carrion NP - 08/16/2024 6:33 AM EDTAssociated Problem(s): Bilateral lower extremity edema Stable with current dose of aldactone 50mg daily * Adelaida Carrion NP - 08/16/2024 6:33 AM EDTAssociated Problem(s): Primary hypertension (CMS/HCC) Please check blood pressure daily and record DASH diet Limit caffeine Take medication as directed Contact office if chest pain, pressure, dizziness, shortness of breath, swelling legs Recommend slow position changes Current meds: amlodipine, losartan * Adelaida Carrion NP - 08/16/2024 6:33 AM EDTAssociated Problem(s): Bronchitis At last appt added trelegy 100's resolved documented in this encounter Plan of Treatment Upcoming Encounters Date Type Department Care Team (Late st Contact Info) Description 11/14/2024 9:40 AM EDT Office Visit [facility] [address] [place] [phone] Adelaida Carrion NP [address] [place] [address] 11/30/2024 12:40 PM EDT Office Visit [facility] [address] [place] [phone] Juany Caballero NP [address] [place], [place] Scheduled Orders Name Type Priority Associated Diagnoses Orde r Schedule Bilateral screening mammogram Imaging Routine Encounter for screening mammogram for malignant neoplasm of breast Expected: 08/16/2024 (Approximate), Expires: 10/16/2025 CT lung screening low dose Imaging Routine Former cigarette smoker Expected: 08/16/2024 (Approximate), Expires: 08/16/2025 documented as of this encounter Procedures Procedure Name Priority Date/Time Associated Diagnosis Comments POCT GLYCOSYLATED HEMOGLOBIN (HGB A1C) Routine 08/16/2024 11:53 AM EDT Pre-diabetes documented in this encounter Results * POCT glycosylated hemoglobin (Hb A1C) docked device (08/16/2024 11:53 AM EDT) Hemoglobin A1C 5.6 Blood Venous blood specimen / Unknown 08/16/2024 11:53 AM EDT Adelaida Carrion REPAIRER GENERAL POINT OF CARE TEST ENTER/EDIT O RDERABLES Final Result documented in this encounter Visit Diagnoses Diagnosis Primary hypertension (CMS/HCC)- Primary Unspecified essential hypertension Bronchitis Bronchitis, not specified as acute or chronic Bilateral lower extremity edema Morbid (severe) obesity due to excess calories (CMS/HCC) Pre-diabetes Other abnormal glucose Allergic rhinitis, unspecified seasonality, unspecified trigger Encounter for screening mammogram for malignant neoplasm of breast Former cigarette smoker Personal history of tobacco use, presenting hazards to health documented in this encounter Additional Health Concerns Assessment Noted Time PHQ-9 Depression Total Score: 8 05/18/19 24 5:00 PM EST documented as of this encounter Care Teams Industrial Pharmacist Relationship Specialty Start Date End Date José Luis Roberts MD [address] [place] [address] PCP - General Family Medicine 02/02/24 Miriam Suarez DO [address] [place] [address] Referring Physician Neurology 06/29/23 Adelaida Carrion NP [address] [facility] [place] [address] Nurse Practitioner Family Medicine 01/27/24 Bong Rosado MA Family Medicine 02/12/24 Juany Leggett PA [address] [facility] [address] [place] [address] Physician Fancy Sewer Neurology 07/26/24 documented as of this encounter
[2024-08-25 04:02] VITALS: BP 172/98; PULSE 76; TEMP 36.9; O2SAT 99; BMI 47.2
--- OUTSIDE RECORDS SUMMARY | 2024-08-25 04:08 | XMS_ITS | Encounter Summary ---
Author Organization [facility] Address [address] [place] [address] Care Team Providers Care [employer] Team Member Name Role Phone Miriam Suarez DO Unavailable [phone] Adelaida Carrion NP Unavailable [phone] José Luis Roberts MD Primary Care Provider Bong Rosado MA Unavailable Unavailable Juany Leggett Unavailable Reason for Visit * Reason Onset Date Comments Med Refill 04/12/2024 Encounter Details Date Type Department Care Team (Late st Contact Info) Description 04/12/2024 Refill [facility] [address] [place] [phone] José Luis Roberts MD [address] [place] [address] Social History Tobacco Use Types Packs/Day Years Used Date Smoking Tobacco: Former Cigarettes 1 40 1 977 - 2017 Smokeless Tobacco: Never Alcohol Use Standard Drinks/Week [...] declined 08/16/2023 How often do you attend cheondoism or judaism serv ices? Never 08/16/2023 Do you belong to any clubs o r organizations such as cheondoism groups, unions, fraternal or athletic groups, or [...] Recorded Patient Health Questionnaire-2 Score 2 09/21/2023 [facility] [place] of Occupat ional Health - Occupational Stress [...] place to sleep or slept in a chcf (including now)? No 08/16/2023 Housing Stability Vital [...] PM EDT documented as of this encounter Miscellaneous Notes * Telephone Encounter - Adelaida Carrion NP - 04/12/2024 11:52 AM EST Contact pt, she will need to contact her neurologist for a refill of lacosamide [place] documented in this encounter Plan of Treatment Upcoming Encounters Date Type Department Care Team (Late st Contact Info) Description 11/14/2024 9:40 AM EDT Office Visit [facility] [address] [place] [phone] Adelaida Carrion NP [address] [place] [address] 11/30/2024 12:40 PM EDT Office Visit [facility] [address] [place] [phone] Juany Caballero NP [address] [place] documented as of this encounter Visit Diagnoses Not on filedocumented in this encounter Additional Health Concerns Assessment Noted Time PHQ-9 Depression Total Score: 8 05/18/19 24 5:00 PM EST documented as of this encounter Care Teams [employer] Team Member Relationship Specialty Start Date End Date José Luis Roberts MD [address] [place] [address] PCP - General Family Medicine 02/02/24 Miriam Suarez DO [address] [place], [place] [id number] Referring Physician Neurology 06/29/23 Adelaida Carrion NP [address] [place] [phone] Nurse Practitioner Family Medicine 01/27/24 Bong Rosado MA Family Medicine 02/12/24 Juany Leggett PA [address] [place], [place] [phone] Physician Polarity Tester Neurology 07/26/24 documented as of this encounter
--- OUTSIDE RECORDS SUMMARY | 2024-08-25 04:08 | XMS_ITS | Encounter Summary ---
Author Organization [facility] Address [address] [place] [address] Care Team Providers Care Laser Beam Machine Operator Name Role Phone Adelaida Carrion NP Unavailable [phone] José Luis Roberts MD Primary Care Provider [phone] Miriam Suarez DO Unavailable [phone] Mathew Parra LPN Unavailable Unavailable Diana De Leon LPN Unavailable Unavailable Unallocated, [facility] Provider Primary Care Provi kellee Adelaida Carrion NP Unavailable [phone] José Luis Roberts MD Primary Care Provider [phone] Bong Rosado MA Unavailable Unavailable Juany Leggett Unavailable Encounter Details Date Type Department Care Team (Late st Contact Info) Description 10/27/2023 Abstract [facility] [address] [place] [address] Unallocated, [facility] Provider, [address] [place], [place] [id number] Social History Tobacco Use Types Packs/Day Years Used Date Smoking Tobacco: Former Cigarettes 1 40 1 977 - 2016 Smokeless Tobacco: Never Alcohol Use Standard Drinks/Week [...] declined 08/16/2023 How often do you attend yarsanism or baptist serv ices? Never 08/16/2023 Do you belong to any clubs o r organizations such as yarsanism groups, unions, fraternal or athletic groups, or [...] Recorded Patient Health Questionnaire-2 Score 2 09/21/2023 [facility] of Occupat ional Health - Occupational Stress [...] place to sleep or slept in a fpc (including now)? No 08/16/2023 Housing Stability Vital [...] PM EDT documented as of this encounter Plan of Treatment Upcoming Encounters Date Type Department Care Team (Late st Contact Info) Description 11/14/2024 9:40 AM EDT Office Visit [facility] [address] [place] [address] Adelaida Carrion NP [address] [place] [address] 11/30/2024 12:40 PM EDT Office Visit [facility] [address] [place] [phone] Juany Caballero NP [address] [place], [place] documented as of this encounter Visit Diagnoses Not on filedocumented in this encounter Additional Health Concerns Assessment Noted Time PHQ-9 Depression Total Score: 8 05/18/19 24 5:00 PM EST documented as of this encounter Care Teams Laser Beam Machine Operator Relationship Specialty Start Date End Date José Luis Roberts MD [address] [place] [address] PCP - General Family Medicine 05/18/23 01/26/24 Unallocated, Johan Sierra MD [address] [place] [address] PCP - General Family Medicine 01/27/24 02/01/24 José Luis Roberts MD [address] [place] [address] PCP - General Family Medicine 02/02/24 Adelaida Carrion NP Referring Physician Nurse Practitioner 10/14/22 Miriam Suarez DO [address] [place], [place] [phone] Referring Physician Neurology 06/29/23 Mathew Parra LPN Licensed Practical Nurse Family Medicine 07/23/23 Diana De Leon LPN Licensed Practical Nurse Family Medicine 12/18/23 Adelaida Carrion NP [address] [place] [address] Nurse Practitioner Family Medicine 01/27/24 Bong Rosado MA Family Medicine 02/12/24 Juany Leggett PA [address] [facility] [address] [place] [address] Physician Accounting Machine Mechanic Neurology 07/26/24 documented as of this encounter
--- OUTSIDE RECORDS SUMMARY | 2024-08-25 04:08 | XMS_ITS | CCD ---
Author Organization [facility] Care Team Providers Care Machining Engineer Name Role Phone EBRAHEIM, SUKI Admitting Unavailable EBRAHEIM, SUKI Attending Unavailable AICHHOLZ, ADELAIDA Referring Unavailable AICHHOLZ, ADELAIDA Primary Care Unavailable UT Procedure Practitioner Unavailab SUKI Jacob Surgeon Unavailable UT Procedure Practitioner Unavailab CHAPARRITA Goncalves Surgeon Unavailable BRIDGETTE MACEDO Admitting Unavailable BRIDGETTE MACEDO Attending Unavailable AICHHOLZ, OTA ADELAIDA Primary Care Unavailable NIXON ., DR FINA Iverson Admitting Unavailable NIXON ., DR FINA Iverson Attending Unavailable AICHHOLZ, OTA ADELAIDA Primary Care Unavailable MCDANIEL ., ZELDA Consulting Unavailable LAKSHMIPATHY ., NARENDRANATH Consulting Paula vailable LAKSHMIPATHY ., NARENDRANATH Admitting Paula vailable LAKSHMIPATHY ., NARENDRANATH Attending Paula vailable AICHHOLZ, OTA ADELAIDA Primary Care Unavailable LAKSHMIPATHY ., NARENDRANATH Consulting Paula vailable AICHHOLZ, OTA ADELAIDA Primary Care Unavailable MARKER ., DR CHAUDHRY Admitting Unavailable MARKER ., DR CHAUDHRY Attending Unavailable MARKER ., DR CHAUDHRY Consulting Unavailable AICHHOLZ, OTA ADELAIDA Admitting Unavailable AICHHOLZ, OTA ADELAIDA Attending Unavailable AICHHOLZ, OTA ADELAIDA Primary Care Unavailable NIXON ., DR FINA Iverson Admitting Unavailable NIXON ., DR FINA Iverson Attending Unavailable AICHHOLZ, OTA ADELAIDA Primary Care Unavailable MCDANIEL ., ZELDA Consulting Unavailable NIXON ., DR FINA Iverson Admitting Unavailable NIXON ., DR FINA Iverson Attending Unavailable AICHHOLZ, OTA ADELAIDA Primary Care Unavailable MCDANIEL ., ZELDA Consulting Unavailable AICHHOLZ, OTA ADELAIDA Admitting Unavailable AICHHOLZ, OTA ADELAIDA Attending Unavailable AICHHOLZ, OTA ADELAIDA Primary Care Unavailable AICHHOLZ, OTA ADELAIDA Consulting Unavailable AICHOLZ, OTA ADELAIDA Admitting Unavailable AICHHOLZ, OTA ADELAIDA Attending Unavailable AICHOLZ, [facility] ADELAIDA Primary Care Unavailable AICHHOLZ, OTA ADELAIDA Consulting Unavailable MISC, DR COTE Admitting Unavailable MISC, DR COTE Attending Unavailable AICHOLZ, [facility] ADELAIDA Primary Care Unavailable AICHHOLZ, OTA ADELAIDA Consulting Unavailable ELYSSA, DR COTE Consulting Unavailable STARR, DR KINGSLEY Atkins Consulting Unavailable NIXON ., DR FINA Iverson Admitting Unavailable NIXON ., DR FINA Iverson Attending Unavailable AICHOLZ, [facility] ADELAIDA Primary Care Unavailable MCDANIEL ., ZELDA Consulting Unavailable NIXON ., DR FINA Iverson Admitting Unavailable NIXON ., DR FINA Iverson Attending Unavailable [facility], [facility] Primary Care Unavailable NIXON ., DR FINA Iverson Consulting Unavailable OMID LAY Consulting Unavailable NIXON ., DR FINA Iverson Admitting Unavailable NIXON ., DR FINA Iverson Attending Unavailable [facility], [facility] Primary Care Unavailable MCDANIEL ., ZELDA Consulting Unavailable [facility], [facility] Primary Care Unavailable HALKER ., ARIAN Admitting Unavailable HALKER ., ARIAN Attending Unavailable LAKSHMIPATHY ., NARENDRANATH Consulting Paula vailable HALKER ., ARIAN Consulting Unavailable LAKSHMIPATHY ., NARENDRANATH Admitting Paula vailable LAKSHMIPATHY ., NARENDRANATH Attending Paula vailable [facility], [facility] Primary Care Unavailable LAKSHMIPATHY ., NARENDRANATH Consulting Paula vailable AICHOLZ, OTA ADELAIDA Admitting Unavailable AICHOLZ, OTA ADELAIDA Attending Unavailable AICHOLZ, OTA ADELAIDA Primary Care Unavailable AICHHOLZ, OTA ADELAIDA Consulting Unavailable BRIDGETTE MACEDO Admitting Unavailable BRIDGETTE MACEDO Attending Unavailable AICHOLZ, OTA ADELAIDA Primary Care Unavailable STARR, DR KINGSLEY Atkins Consulting Unavailable BRIDGETTE MACEDO Consulting Unavailable GILMER NEVES Admitting Unavailable GILMER NEVES Attending Unavailable PURA, GILMER Consulting Unavailable AICHOLZ, OTA ADELAIDA Primary Care Unavailable AICHOLZ, OTA ADELAIDA Primary Care Unavailable DR WILLI RINALDI Admitting Unavailable DEEJAY, DR WILLI Atkins Attending Unavailable DR WILLI RINALDI Consulting Unavailable AICHOLZ, OTA ADELAIDA Primary Care Unavailable ALMAZ ., DANNY Admitting Unavailable ALMAZ ., DANNY Attending Unavailable DR KINGSLEY CLEMENTS Consulting Unavailable ALMAZ ., DANNY Consulting Unavailable LAKSHMIPATHY ., NARENDRANATH Admitting Paula vailable LAKSHMIPATHY ., NARENDRANATH Attending Paula vailable AICHHOLZ, OTA ADELAIDA Primary Care Unavailable AICHHOLZ, OTA ADELAIDA Admitting Unavailable AICHHOLZ, OTA ADELAIDA Attending Unavailable AICHHOLZ, OTA ADELAIDA Primary Care Unavailable AICHHOLZ, OTA ADELAIDA Admitting Unavailable AICHHOLZ, OTA ADELAIDA Attending Unavailable AICHHOLZ, OTA ADELAIDA Primary Care Unavailable AICHHOLZ, OTA ADELAIDA Consulting Unavailable ZIEBER, DR KINGSLEY Atkins Consulting Unavailable HALKER ., ARIAN Admitting Unavailable HALKER ., ARIAN Attending Unavailable AICHHOLZ, OTA ADELAIDA Primary Care Unavailable Aichholz, Adelaida J Primary Care Provider MD Gaudencio Monk Admit Provider MD Gaudencio Monk Attending Provider [phone] JOHANN Vieira Other Provider Unavailable JOHANN Pina Other Provider Unavailable JOHANN Hurtado Other Provider Unavailable JOHANN Crooks Other Provider Unavailable JOHANN Mejias Other Provider Unavailable JOHANN Kim Other Provider Unavailable MD Walker Pringle Other Provider Dilans, CLEAN UP SUPERVISOR Adelaida Huddleston Other Provider DO Jessica Murillo [...] Care Provider MD Jace Graham Attending Provider [phone] Sheyla PHYSICAL MEDICINE TEACHER, Adelaida Unavailable José Luis Roberts MD Primary Care Provider Sheyla PHYSICAL MEDICINE TEACHER, Adelaida Unavailable Daniela DO, Miriam Unavailable Moises VALEN, Diana Unavailable Unavailable Unallocated MD, Noms Provider Primary Care Provi kellee Aichrhonda PHYSICAL MEDICINE TEACHER, Adelaida Unavailable José Luis Roberts MD Primary Care Provider Bong Rosado MA Unavailable Unavailable Aida VALEN, Mathew Unavailable Unavailable Juany Yi Unavailable Jamee JAIMES, Syeda King Attending Unavailable Giedraitis , Andrius King Attending Unavailable Giedchel JAIMES, Syeda King Attending Unavailable Jamee JAIMES, Syeda King Attending Unavailable Dat Monkelrahman Admitting Unavailab Eduardo Connolly Attending Unavailab le Adelaida Carrion Primary Care Unavailable Aichrhonda, Adelaida J Primary Care Unavailable Rob Lake Attending Unavailable Malinda Rosales Consulting Unavailable Delta Gan Admitting Unavailable David Foster Consulting Unavailable Miraim Suarez Consulting Unavailable Kingsley Livingston Consulting Unavailable Kar Burt Consulting Unavailab Dennis Hicks Consulting Unavailable Juany Caballero Consulting Unavailable Inna Melendez Consulting Unavailable Rocio Duncan Consulting Unavailable Chuck Hinkle Consulting Unavailable ADELAIDA CARRION Attending Unavailable JUANY LEGGETT Attending Unavailable AICHHOLADELAIDA Barrett Attending Unavailable JUANY LEGGETT Attending Unavailable AICHHOLADELAIDA Barrett Attending Unavailable ADELAIDA CARRION Attending Unavailable AICHHOLADELAIDA Barrett Attending Unavailable SONAM BROWN Attending Unavailable ADELAIDA CARRION Attending Unavailable SONAM BROWN Attending Unavailable JUANY CABALLERO Attending Unavailable AICHHOLADELAIDA Barrett Attending Unavailable AICHHOLADELAIDA Barrett Attending Unavailable MERRYHOLADELAIDA Barrett Attending Unavailable JUANY LEGGETT Attending Unavailable RACHEL MITCHELL Attending Unavailable DAVID FOSTER Attending Unavailable JUANY LEGGETT Referring Unavailable AICHHOLNena, ADELAIDA Attending RACHEL Elias Referring Unavailable Allergies Allergy Classification Reported Allergen(s) Allergy Type Date of Onset Reaction(s) Facility (7 sources) Adhesive Tape; Translations: [ADHESIVE TAPE] Propensity to adverse reactions (disorder) 04-06-19 14 rash [facility] Repository (3 sources) levETIRAcetam; Translations: [KEPPRA] Drug Allergy 07-02-19 19 [facility] Repository (3 sources) milnacipran; Translations: [SAVELLA] Drug Allergy 03-14-20 13 [facility] Repository (1 source) Penicillin; Translations: [PENICILLIN] Drug Allergy 01-16-20 18 [facility] Repository (5 sources) Prochlorperazin e; Translations: [COMPAZINE] Drug Allergy 03-14-20 13 agitation [facility] Repository (20 sources) Tetracycline; Translations: [TETRACYCLINE] Drug Allergy 04-06-19 13 Hives, Unknown [facility] Repository (4 sources) Penicillins Drug allergy (disorder) 04-06-19 13 Unknown Reaction [facility] Repository (20 sources) levETIRAcetam; Translations: [levetiracetam] Drug Allergy 12-13-19 22 Hallucinations , Other [facility] (20 sources) milnacipran; Translations: [milnacipran] Drug Allergy 12-13-19 22 hives, Hallucinations , Other, Unknown [facility] (20 sources) Prochlorperazin e; Translations: [prochlorperazi ne] Drug Allergy 12-13-19 22 Unknown, Other [facility] (2 sources) Penicillin G Drug Allergy as a child [email or web address] Other (2 sources) Tetracaine Drug Allergy Unknown [email or web address] Other (20 sources) Penicillins Drug Intolerance 12-13-19 22 Anaphylaxis [facility] (20 sources) Other Propensity to adverse reactions 12-13-19 22 Other [facility] (20 sources) Wound Dressing Adhesive Drug Allergy 09-20-19 23 Rash, Unknown [facility] (20 sources) Eszopiclone Drug Allergy 09-21-19 24 Hallucinations , Anaphylaxis [facility] (1 source) Penicillin Drug Allergy 03-02-20 [facility] Repository (1 source) Penicillins Drug allergy (disorder) 03-02-20 [facility] Repository (1 source) Tetracaine Drug Allergy 03-02-20 [facility] Repository Medications Current Medications Medication Drug Class(es) Dates Sig (Normalized) Sig (Original) amLODIPine 10 mg oral tablet (20 sources) Dihydropyridine Calcium Channel Jim Start: 10-05-2023 End: 08-26-2024 take 1 tablet by mouth once daily amLODIPine (Norvasc) 10 MG tablet Indications: Essential (primary) hypertension (CMS/HCC) Take 1 tablet (10 mg) by mouth Daily 30 tablet 5 07/27/2024 08/26/2024 Active Start: 11-17-2022 take 10 mg by [...] 0 Active azithromycin 250 mg oral tablet (4 sources) Macrolide Antimicrobial Start: 06-15-19 25 azithromycin (Zithromax) [...] alpha-Adrenergic Jim, beta-Adrenergic Jim Start: 10-05-2023 End: 08-26-2024 take 1 tablet by mouth in the morning carvedilol (Coreg) 12.5 MG tablet Indications: Essential (primary) hypertension (CMS/HCC) Take 1 tablet (12.5 mg) by mouth in the morning and 1 tablet (12.5 mg) in the evening. Take with meals. 60 tablet 5 07/27/2024 08/26/2024 Active Start: 04-29-2023 End: 05-29-2023 take 1 [...] sources) Histamine-1 Receptor Antagonist Start: 10-05-2023 End: 08-26-2024 take 1 tablet by mouth once daily cetirizine (ZyrTEC) 10 MG tablet Indications: Allergic rhinitis, unspecified Take 1 tablet (10 mg) by mouth Daily 30 tablet 5 07/27/2024 08/16/2024 Discontinued (Ineffective) Start: 11-17-2022 take 10 mg by mouth [...] 27, 2018 12:00am November 17, 2022 12:45am diclofenac sodium 50 mg delayed release oral tablet (6 sources) Nonsteroidal Anti-inflammatory Drug Start: 07-24-2024 diclofenac (Voltaren) 50 MG EC tablet 07/24/2024 Active DULoxetine 60 mg delayed release oral capsule [...] 1 tablet Orally TWICE A DAY Active fexofenadine hydrochloride 180 mg oral tablet (2 sources) Histamine-1 Receptor Antagonist Start: 08-16-2024 End: 09-15-2024 take 1 tablet by mouth once daily fexofenadine (Naida) 180 MG tablet Indications: Allergic rhinitis, unspecified seasonality, unspecified trigger Take 1 tablet (180 mg) by mouth Daily 30 tablet 5 08/16/2024 09/15/2024 Active fluconazole 100 mg oral tablet (20 [...] spray (20 sources) Corticosteroid Start: 02-29-2024 End: 08-26-2024 take 2 spray(s) nasal route once daily fluticasone (Flonase) 50 MCG/ACT nasal spray Indications: Allergic rhinitis, unspecified Administer 2 sprays into each nostril Daily 16 g 5 07/27/2024 08/26/2024 Active Start: 10-05-2023 End: 02-03-2024 take 2 [...] (20 sources) Anti-epileptic Agent Start: 10-14-2023 End: 01-08-2025 take 1 capsule by mouth in the morning gabapentin (Neurontin) 300 MG capsule Indications: Restless leg Take 1 capsule (300 mg) by mouth in the morning and 1 capsule (300 mg) before bedtime. Due now. 180 capsule 1 07/12/2024 01/08/2025 Active Start: 05-28-2018 End: 11-17-2022 take 1200 [...] mg) by mouth Daily 30 tablet 5 07/27/2024 08/26/2024 Active Start: 11-17-2022 take 100 mg by [...] (BARIATRIC MULTIVITAMINS/IRON PO) Bariatric Multivitamins/Iron 0 Active Glsfklcfuapp-Rrh-Oqlh-Fa-Vit K (Bariatric Multivitamins) 45 mg iron- 800 mcg-120 mcg Capsule (2 sources) Start: 11-17-2022 take 1 capsule by mouth once daily Evgnyqwwiagn-Umw-Fdjj-Fa-Vit K (Bariatric Multivitamins) 45 mg iron- 800 mcg-120 mcg Capsule Active 1 CAP PO Daily November 16, 2022 11:00pm Start: 11-17-2022 take 1 capsule by mo uth once daily Ntuygaxmbssz-Zlb-Bjxr-Fa-Vit K (Bariatri c Multivitamins) 45 mg iron- 800 mcg-120 mcg Capsule Active 1 CAP PO Daily November 17, 2022 12:00am nystatin 271202 unt/ml topical cream (20 sources) Polyene Antifungal Start: 03-07-2024 nystatin (M ycostatin) cream 03/07/2024 Active nystatin (Mycost atin) 696577 UNIT/GM powder Apply 1 application topically in [...] sources) Proton Pump Inhibitor Start: 10-05-2023 End: 08-26-2024 take 1 capsule by mouth before mealtime omeprazole (PriLOSEC) [address] capsule Indications: Gastro-esophageal reflux disease without esophagitis Take 1 capsule (20 mg) by mouth in the morning. Take before meals. 30 capsule 5 07/27/2024 08/26/2024 Active Start: 11-17-2022 take 20 mg by mouth once daily Omeprazole Active 20 MG PO Daily November 16, 2022 11:00pm rOPINIRole 3 mg oral tablet (20 sources) Nonergot Dopamine Agonist Start: 07-26-2024 End: 10-24-2024 take 1 tablet by mouth at bedtime rOPINIRole (Requip) 3 MG tablet Indications: Restless Leg Syndrome Take 1 tablet (3 mg) by mouth at bedtime 90 tablet 2 07/26/2024 10/24/2024 Active Start: 07-12-2024 End: 10-10-2024 take 1 tablet by mouth at bedtime rOPINIRole (Requip) 2 MG tablet Indications: Restless Leg Syndrome Take 1 tablet (2 mg) by mouth at bedtime 30 tablet 2 07/12/2024 07/26/2024 Discontinued (Reorder) Start: 03-15-2024 End: 06-14-2024 take 1 tablet [...] (20 sources) Aldosterone Antagonist Start: 03-16-2024 End: 08-26-2024 take 1 tablet by mouth once daily spironolactone (Aldactone) 50 MG tablet Indications: Bilateral lower extremity edema Take 1 tablet (50 mg) by mouth Daily 30 tablet 5 07/27/2024 08/26/2024 Active Start: 11-02-2023 End: 03-16-2024 take 2 [...] daily Lisinopril Discontinued 20 MG PO Daily 30 June 01, 2018 12:00am November 17, 2022 [...] Resolved : 03-16-2005-18-2023 Chronic Chronic kidney disease (19 sources) Chronic kidney disease stage 3A ; Translations: [Chronic kidney disease, stage 3a (HCC)] Onset: 05-12-1905-12-2024 Chronic Chronic obstructive pulmonary disease and bronchiectasis (9 sources) Bronchitis; Translations: [Bronchitis, not specified as acute or chronic] Onset: 07-28-1907-27-2024 Episodic Conduction disorders (20 sources) EKG: right bundle branch block; Translations: [Unspecified right bundle-branch block] Onset: 03-16-20 24 03-16-2024 Chronic Diabetes mellitus without complication (2 sources) Diabetes mellitus; Translations: [Type 2 diabetes mellitus without complications] 05-31-2018 Chronic Diabetes mellitus without complication (20 sources) Prediabetes; Translations: [Prediabetes] Onset: 08-01-19 23 [...] Chronic Other nervous system disorders (6 sources) Disturbance of attention; Translations: [Attention and [...] nutritional; endocrine; and metabolic disorders (20 sources) Body mass index 40+ - severely [...] nutritional; endocrine; and metabolic disorders (20 sources) Obesity caused by energy imbalance; Translations: [Morbid (severe) obesity due to excess calories] Onset: 03-25-2005-12-2024 Chronic Other screening for suspected conditions (not mental disorders or infectious disease) (20 sources) Patient encounter status; Translations: [Encounter for screening mammogram for malignant neoplasm of breast] Onset: 07-23-1907-23-2023 Episodic Other upper respiratory disease (20 sources) Allergic rhinitis; Translations: [Allergic rhinitis, unspecified] Onset: 05-18-1905-18-2023 Chronic Other upper respiratory infections (11 sources) Acute upper respiratory infection; Translations: [Acute upper respiratory infection, unspecified] Onset: 06-15-1906-14-2024 Episodic Paralysis (20 sources) Right hemiparesis; Translations: [...] Translations: [Transient alteration of awareness] 04-12-2024 Episodic Screening and history of mental health and substance abuse codes (20 sources) Personal history of nicotine dependence; Translations: [Ex-cigarette smoker] Onset: 07-17-19 23 08-19-2023 Episodic Spondylosis; intervertebral disc disorders; other back [...] vertigo, unspecified ear] Onset: 05-18-2023 Resolved: 03-16-2024 4 Episodic Deficiency and other anemia (20 sources) Anemia; Translations: [Anemia, unspecified] Onset: 05-18-2023 05-18-2023 Episodic E Codes: Cut/pierceb (1 source) [...] 05-18-2023 Episodic Other aftercare (1 source) Other long-term (current) drug therapy; Translations: [[facility]IOR CARE CURRENT DRUG THERAPY] Onset: 04-29-2022 Episodic Other [...] 09-21-2023 Episodic Residual codes; unclassified (1 source) Altered mental status, unspecified; Translations: [Altered mental status, unspecified] Onset: 03-03-2024 Episodic Respiratory failure; insufficiency; arrest (adult) (20 sources) Acute respiratory failure; Translations: [Acute respiratory failure, unspecified whether with hypoxia or hypercapnia] Onset: 08-26-2023 Resolved: 03-16-2024 09-21-2023 Episodic Substance-related disorders (20 sources) Tobacco dependence syndrome; Translations: [Nicotine dependence, unspecified, uncomplicated] Onset: 05-18-2023 Resolved: 03-16-2024 05-18-2023 Chronic Unclassified (1 source) LOW BACK PAIN, UNSPECIFIED; Translations: [LOW BACK PAIN, UNSPECIFIED] Onset: 06-26-2022 Urinary tract infections (20 sources) Urinary tract infectious disease; Translations: [Urinary tract infection, site not specified] Onset: 05-21-2023 Resolved: 08-16-2024 11-18-2022 Episodic Viral infection (20 sources) Herpes zoster; Translations: [Zoster without complications] Onset: 05-18-2023 Resolved: 05-18-2023 05-18-2023 Episodic Results Test Name Value Interpretation Reference Range Facility HbA1c (Bld) [Mass fraction]o n 08-16-2024 Interpretation and review of laboratory results Normal [facility] - Hematology and Cell countson 08-16-2024 HbA1c (Bld) [Mass fraction] 5.6 % [facility] Complete Blood Count Auto Di ffon 03-05-2024 Basophils (Bld) [#/Vol] 0.0 10*3/uL Normal 0.0-0.2 [facility] Comment on above: Result Comment: PERF ORMED BY: [place] [address] PATHOLOGIST ORTHOPEDICS NURSE ADIEL AGUSTIN M.D. Performed By: #### C BC, MG, CMP #### [place] [address] [place] Basophils/100 WBC (Bld) 0.5 % Normal . [facility] Comment on above: Performed By: #### C BC, MG, CMP #### [facility] [address] [place] [address] [place] Eosinophils (Bld) [#/Vol] 0.2 10*3/uL Normal 0.0-0.45 [facility] Comment on above: Performed By: #### C BC, MG, CMP #### [place] [address] [place] Eosinophils/100 WBC (Bld) 2.2 % Normal . [facility] Comment on above: Performed By: #### C BC, MG, CMP #### [address] Erythrocyte distribution width (RBC) [Ratio] 14.5 % Normal 11.9-15.3 [facility] Comment on above: Performed By: #### C BC, MG, CMP #### [address] Hematocrit (Bld) [Volume fraction] 43.0 % Normal 34.0-46.4 [facility] Comment on above: Performed By: #### C BC, MG, CMP #### [address] Hemoglobin (Bld) [Mass/Vol] 14.3 g/dL Normal 11.8-15.4 [facility] Comment on above: Performed By: #### C BC, MG, CMP #### [address] Lymphocytes (Bld) [#/Vol] 1.8 10*3/uL Normal 1.00-4.8 [facility] Comment on above: Performed By: #### C BC, MG, CMP #### [address] Lymphocytes/100 WBC (Bld) 18.9 % Normal . [facility] Comment on above: Performed By: #### C BC, MG, CMP #### [address] MCH (RBC) [Entitic mass] 29.0 pg Normal 24.7-34.3 [facility] Comment on above: Performed By: #### C BC, MG, CMP #### [address] MCV (RBC) [Entitic vol] 87.0 fL Normal 80-100 [facility] Comment on above: Performed By: #### C BC, MG, CMP #### [address] Mean Corpuscular HGB Conc 33.4 g/dL Normal 32.0-35.0 [facility] Comment on above: Performed By: #### C BC, MG, CMP #### [facility] [address] [place] [address] [place] Monocytes (Bld) [#/Vol] 0.5 10*3/uL Normal 0.0-0.8 [facility] Comment on above: Performed By: #### C BC, MG, CMP #### [facility] [address] [place] [id number] [place] Monocytes/100 WBC (Bld) 5.5 % Normal . [facility] Comment on above: Performed By: #### C BC, MG, CMP #### [facility] [address] [place] [address] [place] Neutrophils (Bld) [#/Vol] 7.0 10*3/uL Normal 1.8-7.7 [facility] Comment on above: Performed By: #### C BC, MG, CMP #### [facility] [address] [place] [address] [place] Neutrophils/100 WBC (Bld) 72.9 % Normal . [facility] Comment on above: Performed By: #### C BC, MG, CMP #### [facility] [address] [place] [address] [place] NRBC% 0.0 /100{WBC} Normal 0-0.5 [facility] Comment on above: Performed By: #### C BC, MG, CMP #### [facility] [address] [place] [address] [place] Platelet mean volume (Bld) [Entitic vol] 8.9 fL Normal 6.3-10.[address] [facility] Comment on above: Performed By: #### C BC, MG, CMP #### [facility] [address] [place] [id number] [place] Platelets (Bld) [#/Vol] 289 10*3/uL Normal 150-450 [facility] Comment on above: Performed By: #### C BC, MG, CMP #### [facility] [address] [place] [address] [place] RBC (Bld) [#/Vol] 4.94 10*6/uL Normal 3.60-5.00 [facility] Comment on above: Performed By: #### C BC, MG, CMP #### [address] WBC (Bld) [#/Vol] 9.6 10*3/uL Normal 3.8-11.6 [facility] Comment on above: Performed By: #### C BC, MG, CMP #### [address] Comprehensive Metabolic Pane [place] 03-05-2024 Albumin [Mass/Vol] 4.4 g/dL Normal 3.5-5.7 [facility] Comment on above: Performed By: #### C BC, MG, CMP #### [address] Albumin/Globulin [Mass ratio] 1.3 {ratio} Normal [facility] Comment on above: Performed By: #### C BC, MG, CMP #### [address] ALP [Catalytic activity/Vol] 79 U/L Normal 34-104 [facility] Comment on above: Performed By: #### C BC, MG, CMP #### [address] ALT [Catalytic activity/Vol] 23 U/L Normal 7-52 [facility] Comment on above: Performed By: #### C BC, MG, CMP #### [address] Anion gap [Moles/Vol] 15.4 mmol/L High 6.0-15.0 [facility] Comment on above: Performed By: #### C BC, MG, CMP #### [address] AST [Catalytic activity/Vol] 36 U/L Normal 13-39 [facility] Comment on above: Performed By: #### C BC, MG, CMP #### [address] Bilirubin [Mass/Vol] 0.4 mg/dL Normal 0.3-1.0 [facility] Comment on above: Performed By: #### C BC, MG, CMP #### [facility] [address] [place] [address] [place] Calcium [Mass/Vol] 9.5 mg/dL Normal 8.6-10.3 [facility] Comment on above: Performed By: #### C BC, MG, CMP #### [facility] [address] [place] [address] [place] Chloride [Moles/Vol] 106 mmol/L Normal 98-107 [facility] Comment on above: Performed By: #### C BC, MG, CMP #### [facility] [address] [place] [address] [place] CO2 [Moles/Vol] 23.1 mmol/L Normal 21.0-31.0 The [facility] Comment on above: Performed By: #### C BC, MG, CMP #### [facility] [address] [place] [address] [place] Creatinine [Mass/Vol] 0.96 mg/dL Normal 0.60-1.20 [facility] Comment on above: Performed By: #### C BC, MG, CMP #### [facility] [address] [place] [address] [place] Creatinine Clr Calc Pharmacy 84.51 Normal [facility] Comment on above: Performed By: #### C BC, MG, CMP #### [facility] [address] [place] [address] [place] GFR/1.73 sq M.predicted MDRD (S/P/Bld) [Vol rate/Area] mL/min/{1.73_m2} Normal [facility] Comment on above: Performed By: #### C BC, MG, CMP #### [facility] [address] [place] [address] [place] Globulin (S) [Mass/Vol] 3.3 g/dL Normal [facility] Comment on above: Performed By: #### C BC, MG, CMP #### [facility] [address] [place] [address] [place] Glucose [Mass/Vol] 133 mg/dL High 70-100 The [facility] Comment on above: Result Comment: [place] Glucose Reference Range is dependent on time and content of last meal. Glucose of more than 200 mg/dL in a nonstressed, ambulatory subject supports the diagnosis of Diabetes Mellitus. ADA recommended reference range Performed By: #### C BC, MG, CMP #### [address] Potassium [Moles/Vol] 3.5 mmol/L Normal 3.5-5.1 [facility] Comment on above: Performed By: #### C BC, MG, CMP #### [address] Protein [Mass/Vol] 7.7 g/dL Normal 6.4-8.9 [facility] Comment on above: Performed By: #### C BC, MG, CMP #### [address] Sodium [Moles/Vol] 141 mmol/L Normal 136-145 [facility] Comment on above: Performed By: #### C BC, MG, CMP #### [address] Urea nitrogen [Mass/Vol] 18 mg/dL Normal 7-25 [facility] Comment on above: Performed By: #### C BC, MG, CMP #### [address] Magnesiumon 03-05-2024 Magnesium [Mass/Vol] 2.0 mg/dL Normal 1.9-2.7 [facility] Comment on above: Result Comment: PERF ORMED BY: [place] [address] PATHOLOGIST ORTHOPEDICS NURSE ADIEL AGUSTIN M.D. Performed By: #### C BC, MG, CMP #### [address] Complete Blood Count Auto Di ffon 03-04-2024 Basophils (Bld) [#/Vol] 0.1 10*3/uL Normal 0.0-0.2 [facility] Comment on above: Result Comment: PERF ORMED BY: [place] [address] PATHOLOGIST ORTHOPEDICS NURSE ADIEL AGUSTIN M.D. Performed By: #### C MP, MG, CBC #### [address] Basophils/100 WBC (Bld) 0.6 % Normal . [facility] Comment on above: Performed By: #### C MP, MG, CBC #### [address] Eosinophils (Bld) [#/Vol] 0.2 10*3/uL Normal 0.0-0.45 [facility] Comment on above: Performed By: #### C MP, MG, CBC #### [address] Eosinophils/100 WBC (Bld) 1.9 % Normal . [facility] Comment on above: Performed By: #### C MP, MG, CBC #### [address] Erythrocyte distribution width (RBC) [Ratio] 14.6 % Normal 11.9-15.3 [facility] Comment on above: Performed By: #### C MP, MG, CBC #### [address] Hematocrit (Bld) [Volume fraction] 43.5 % Normal 34.0-46.4 [facility] Comment on above: Performed By: #### C MP, MG, CBC #### [place] [address] [place] Hemoglobin (Bld) [Mass/Vol] 14.4 g/dL Normal 11.8-15.4 [facility] Comment on above: Performed By: #### C MP, MG, CBC #### [place] [address] [place] Lymphocytes (Bld) [#/Vol] 1.8 10*3/uL Normal 1.00-4.8 [facility] Comment on above: Performed By: #### C MP, MG, CBC #### [address] Lymphocytes/100 WBC (Bld) 18.0 % Normal . [facility] Comment on above: Performed By: #### C MP, MG, CBC #### [address] MCH (RBC) [Entitic mass] 28.8 pg Normal 24.7-34.3 [facility] Comment on above: Performed By: #### C MP, MG, CBC #### [address] MCV (RBC) [Entitic vol] 87.0 fL Normal 80-100 [facility] Comment on above: Performed By: #### C MP, MG, CBC #### [address] Mean Corpuscular HGB Conc 33.2 g/dL Normal 32.0-35.0 [facility] Comment on above: Performed By: #### C MP, MG, CBC #### [place] [address] [place] Monocytes (Bld) [#/Vol] 0.8 10*3/uL Normal 0.0-0.8 [facility] Comment on above: Performed By: #### C MP, MG, CBC #### [address] Monocytes/100 WBC (Bld) 8.2 % Normal . [facility] Comment on above: Performed By: #### C MP, MG, CBC #### [address] Neutrophils (Bld) [#/Vol] 7.3 10*3/uL Normal 1.8-7.7 [facility] Comment on above: Performed By: #### C MP, MG, CBC #### [address] Neutrophils/100 WBC (Bld) 71.3 % Normal . [facility] Comment on above: Performed By: #### C MP, MG, CBC #### [address] NRBC% 0.1 /100{WBC} Normal 0-0.5 [facility] Comment on above: Performed By: #### C MP, MG, CBC #### [address] Platelet mean volume (Bld) [Entitic vol] 8.8 fL Normal 6.3-10.[address] [facility] Comment on above: Performed By: #### C MP, MG, CBC #### [address] Platelets (Bld) [#/Vol] 334 10*3/uL Normal 150-450 [facility] Comment on above: Performed By: #### C MP, MG, CBC #### [address] RBC (Bld) [#/Vol] 5.01 10*6/uL High 3.60-5.00 [facility] Comment on above: Performed By: #### C MP, MG, CBC #### [address] WBC (Bld) [#/Vol] 10.3 10*3/uL Normal 3.8-11.6 [facility] Comment on above: Performed By: #### C MP, MG, CBC #### [address] Comprehensive Metabolic Pane [place] 03-04-2024 Albumin [Mass/Vol] 4.5 g/dL Normal 3.5-5.7 [facility] Comment on above: Performed By: #### C MP, MG, CBC #### [address] Albumin/Globulin [Mass ratio] 1.4 {ratio} Normal [facility] Comment on above: Performed By: #### C MP, MG, CBC #### [address] ALP [Catalytic activity/Vol] 79 U/L Normal 34-104 [facility] Comment on above: Performed By: #### C MP, MG, CBC #### [facility] [address] [place] [address] [place] ALT [Catalytic activity/Vol] 19 U/L Normal 7-52 [facility] Comment on above: Performed By: #### C MP, MG, CBC #### [facility] [address] [place] [address] [place] Anion gap [Moles/Vol] 11.4 mmol/L Normal 6.0-15.0 [facility] Comment on above: Performed By: #### C MP, MG, CBC #### [facility] [address] AST [Catalytic activity/Vol] 37 U/L Normal 13-39 [facility] Comment on above: Performed By: #### C MP, MG, CBC #### [facility] [address] [place] [address] [place] Bilirubin [Mass/Vol] 0.5 mg/dL Normal 0.3-1.0 [facility] Comment on above: Performed By: #### C MP, MG, CBC #### [facility] [address] [place] [address] [place] Calcium [Mass/Vol] 9.6 mg/dL Normal 8.6-10.3 [facility] Comment on above: Performed By: #### C MP, MG, CBC #### [facility] [address] [place] [address] [place] Chloride [Moles/Vol] 107 mmol/L Normal 98-107 [facility] Comment on above: Performed By: #### C MP, MG, CBC #### [facility] [address] [place] [id number] [place] CO2 [Moles/Vol] 27.4 mmol/L Normal 21.0-31.0 [facility] Comment on above: Performed By: #### C MP, MG, CBC #### [facility] [address] [place] [id number] [place] Creatinine [Mass/Vol] 0.91 mg/dL Normal 0.60-1.20 [facility] Comment on above: Performed By: #### C MP, MG, CBC #### [address] Creatinine Clr Calc Pharmacy 90.12 Normal [facility] Comment on above: Performed By: #### C MP, MG, CBC #### [place] [address] [place] GFR/1.73 sq M.predicted MDRD (S/P/Bld) [Vol rate/Area] mL/min/{1.73_m2} Normal [facility] Comment on above: Performed By: #### C MP, MG, CBC #### [address] Globulin (S) [Mass/Vol] 3.2 g/dL Normal [facility] Comment on above: Performed By: #### C MP, MG, CBC #### [address] Glucose [Mass/Vol] 100 mg/dL Normal 70-100 [facility] Comment on above: Result Comment: [facility] Glucose Reference Range is dependent on time and content of last meal. Glucose of more than 200 mg/dL in a nonstressed, ambulatory subject supports the diagnosis of Diabetes Mellitus. ADA recommended reference range Performed By: #### C MP, MG, CBC #### [address] Potassium [Moles/Vol] 3.8 mmol/L Normal 3.5-5.1 [facility] Comment on above: Performed By: #### C MP, MG, CBC #### [address] Protein [Mass/Vol] 7.7 g/dL Normal 6.4-8.9 [facility] Comment on above: Performed By: #### C MP, MG, CBC #### [address] Sodium [Moles/Vol] 142 mmol/L Normal 136-145 [facility] Comment on above: Performed By: #### C MP, MG, CBC #### [address] Urea nitrogen [Mass/Vol] 15 mg/dL Normal 7-25 [facility] Comment on above: Performed By: #### C MP, MG, CBC #### [address] MR head/brain wo/w conon MR head/brain wo/w con [facility] Main [place] [address] [place] [address] MRI Report Signed Patient: Michelle Be MR#: [id number] : 1960 Acct:[id number] Age/Sex: 63 / F ADM Date: 03/03/24 Loc: Room: [address] [place] [address] Type: ADM IN Attending Dr: Delta Gan [...] Willi Guadalupe M.D.03/04/2024 2:32 PM Dictation Location: [place] [address] Transcribed By: [facility] 03/04/24 1432 Dictated By: Willi Guadalupe II, MD 03/04/24 1424 Signed By: 03/04/24 1432 Normal [facility] Magnesiumon 03-04-2024 Magnesium [Mass/Vol] 2.0 mg/dL Normal 1.9-2.7 [facility] Comment on above: Result Comment: PERF ORMED BY: [place] [address] PATHOLOGIST ORTHOPEDICS NURSE ADIEL AGUSTIN M.D. Performed By: #### C MP, MG, CBC #### [address] Complete Blood Count Auto Di ffon 03-03-2024 Basophils (Bld) [#/Vol] 0.1 10*3/uL Normal 0.0-0.2 [facility] Comment on above: Order Comment: WEN BELLA,1606 Result Comment: PERF ORMED BY: [place] [address] PATHOLOGIST ORTHOPEDICS NURSE ADIEL AGUSTIN M.D. Performed By: #### C BC, CMP #### [address] Basophils/100 WBC (Bld) 0.6 % Normal . [facility] Comment on above: Order Comment: REY PORRAS,WEN,1606 Performed By: #### C BC, CMP #### [address] Eosinophils (Bld) [#/Vol] 0.1 10*3/uL Normal 0.0-0.45 [facility] Comment on above: Order Comment: WEN BELLA,1606 Performed By: #### C BC, CMP #### [facility] [address] [place] [id number] [facility] Eosinophils/100 WBC (Bld) 1.0 % Normal . [facility] Comment on above: Order Comment: RIN T O COME TRY,KAH,160 Performed By: #### C BC, CMP #### [facility] [address] Erythrocyte distribution width (RBC) [Ratio] 14.6 % Normal 11.9-15.3 [facility] Comment on above: Order Comment: RIN T O COME TRY,KAH,160 Performed By: #### C BC, CMP #### [address] Hematocrit (Bld) [Volume fraction] 42.9 % Normal 34.0-46.4 [facility] Comment on above: Order Comment: RIN T O COME TRY,KAH,160 Performed By: #### C BC, CMP #### [address] Hemoglobin (Bld) [Mass/Vol] 14.5 g/dL Normal 11.8-15.4 [facility] Comment on above: Order Comment: RIN T O COME TRY,KAH,160 Performed By: #### C BC, CMP #### [address] Lymphocytes (Bld) [#/Vol] 1.7 10*3/uL Normal 1.00-4.8 [facility] Comment on above: Order Comment: RIN T O COME TRY,KAH,160 Performed By: #### C BC, CMP #### [place] [id number] [place] Lymphocytes/100 WBC (Bld) 15.7 % Normal . [facility] Comment on above: Order Comment: RIN T O COME TRY,KAH,160 Performed By: #### C BC, CMP #### [place] [id number] [facility] MCH (RBC) [Entitic mass] 29.1 pg Normal 24.7-34.3 [facility] Comment on above: Order Comment: RIN T O COME TRY,KAH,1607 Performed By: #### C BC, CMP #### [address] MCV (RBC) [Entitic vol] 85.9 fL Normal 80-100 [facility] Comment on above: Order Comment: RIN T O COME TRY,KAH,1607 Performed By: #### C BC, CMP #### [address] Mean Corpuscular HGB Conc 33.8 g/dL Normal 32.0-35.0 [facility] Comment on above: Order Comment: RIN T O COME TRY,KAH,1607 Performed By: #### C BC, CMP #### [address] Monocytes (Bld) [#/Vol] 0.9 10*3/uL High 0.0-0.8 [facility] Comment on above: Order Comment: RIN T O COME TRY,KAH,1607 Performed By: #### C BC, CMP #### [address] Monocytes/100 WBC (Bld) 8.4 % Normal . [facility] Comment on above: Order Comment: RIN T O COME TRY,KAH,1607 Performed By: #### C BC, CMP #### [address] Neutrophils (Bld) [#/Vol] 8.0 10*3/uL High 1.8-7.7 [facility] Comment on above: Order Comment: RIN T O COME TRY,KAH,1607 Performed By: #### C BC, CMP #### [address] Neutrophils/100 WBC (Bld) 74.3 % Normal . [facility] Comment on above: Order Comment: RIN T O COME TRY,KAH,1607 Performed By: #### C BC, CMP #### [place] [address] [place] NRBC% 0.1 /100{WBC} Normal 0-0.5 [facility] Comment on above: Order Comment: RIN T O COME TRY,KAH,1607 Performed By: #### C BC, CMP #### [address] Platelet mean volume (Bld) [Entitic vol] 8.9 fL Normal 6.3-10.[address] [facility] Comment on above: Order Comment: RIN T O COME TRY,KAH,1607 Performed By: #### C BC, CMP #### [address] Platelets (Bld) [#/Vol] 291 10*3/uL Normal 150-450 [facility] Comment on above: Order Comment: RIN T O COME TRY,KAH,1607 Performed By: #### C BC, CMP #### [address] RBC (Bld) [#/Vol] 4.99 10*6/uL Normal 3.60-5.00 [facility] Comment on above: Order Comment: RIN T O COME TRY,KAH,1607 Performed By: #### C BC, CMP #### [address] WBC (Bld) [#/Vol] 10.7 10*3/uL Normal 3.8-11.6 [facility] Comment on above: Order Comment: RIN T O COME TRY,KAH,1607 Performed By: #### C BC, CMP #### [address] Comprehensive Metabolic Pane [place] 03-03-2024 Albumin [Mass/Vol] 4.6 g/dL Normal 3.5-5.7 [facility] Comment on above: Order Comment: RIN T O COME TRY,KAH,1607 Performed By: #### C BC, CMP #### [address] Albumin/Globulin [Mass ratio] 1.4 {ratio} Normal [facility] Comment on above: Order Comment: RIN T O COME TRY,KAH,1607 Performed By: #### C BC, CMP #### [facility] [address] [place] [address] ALP [Catalytic activity/Vol] 80 U/L Normal 34-104 [facility] Comment on above: Order Comment: RIN T O COME TRY,KAH,1607 Performed By: #### C BC, CMP #### [facility] [address] [place] [address] ALT [Catalytic activity/Vol] 16 U/L Normal 7-52 [facility] Comment on above: Order Comment: RIN T O COME TRY,KAH,1607 Performed By: #### C BC, CMP #### [address] Anion gap [Moles/Vol] 13.6 mmol/L Normal 6.0-15.0 [facility] Comment on above: Order Comment: RIN T O COME TRY,KAH,160 Performed By: #### C BC, CMP #### [address] AST [Catalytic activity/Vol] 35 U/L Normal 13-39 [facility] Comment on above: Order Comment: RIN T O COME TRY,KAH,1607 Performed By: #### C BC, CMP #### [address] Bilirubin [Mass/Vol] 0.3 mg/dL Normal 0.3-1.0 [facility] Comment on above: Order Comment: RIN T O COME TRY,KAH,160 Performed By: #### C BC, CMP #### [place] [address] [place] Calcium [Mass/Vol] 9.3 mg/dL Normal 8.6-10.3 [facility] Comment on above: Order Comment: RIN T O COME TRY,KAH,1607 Performed By: #### C BC, CMP #### [place] [address] [place] Chloride [Moles/Vol] 109 mmol/L High 98-107 [facility] Comment on above: Order Comment: RIN T O COME TRY,KAH,1607 Performed By: #### C BC, CMP #### [facility] [address] CO2 [Moles/Vol] 22.4 mmol/L Normal 21.0-31.0 [facility] Comment on above: Order Comment: RIN T O COME TRY,,1606 Performed By: #### C BC, CMP #### [facility] [address] Creatinine [Mass/Vol] 0.93 mg/dL Normal 0.60-1.20 [facility] Comment on above: Order Comment: RIN T O COME TRY,,1606 Performed By: #### C BC, CMP #### [facility] [address] Creatinine Clr Calc Pharmacy 87.94 Normal [facility] Comment on above: Order Comment: RIN T O COME TRY,,1606 Result Comment: PERF ORMED BY: [place] [address] PATHOLOGIST ORTHOPEDICS NURSE ADIEL AGUSTIN M.D. Performed By: #### C BC, CMP #### [address] GFR/1.73 sq M.predicted MDRD (S/P/Bld) [Vol rate/Area] mL/min/{1.73_m2} Normal [facility] Comment on above: Order Comment: RIN T O COME TRY,,1606 Performed By: #### C BC, CMP #### [address] Globulin (S) [Mass/Vol] 3.2 g/dL Normal [facility] Comment on above: Order Comment: RIN T O COME TRY,,1606 Performed By: #### C BC, CMP #### [address] Glucose [Mass/Vol] 105 mg/dL High 70-100 [facility] Comment on above: Order Comment: RIN T O COME TRY,,1606 Result Comment: [place] Glucose Reference Range is dependent on time and content of last meal. Glucose of more than 200 mg/dL in a nonstressed, ambulatory subject supports the diagnosis of Diabetes Mellitus. ADA recommended reference range Performed By: #### C BC, CMP #### [facility] [address] Potassium [Moles/Vol] 4.0 mmol/L Normal 3.5-5.1 [facility] Comment on above: Order Comment: RIN T O COME CHIQUITA,KAH,1607 Performed By: #### C BC, CMP #### [facility] [address] [place] [address] [place] Protein [Mass/Vol] 7.8 g/dL Normal 6.4-8.9 [facility] Comment on above: Order Comment: RIN T O COME TRY,KAH,1607 Performed By: #### C BC, CMP #### [place] [address] [place] Sodium [Moles/Vol] 141 mmol/L Normal 136-145 [facility] Comment on above: Order Comment: RIN T O COME TRY,KAH,1607 Performed By: #### C BC, CMP #### [address] Urea nitrogen [Mass/Vol] 15 mg/dL Normal 7-25 [facility] Comment on above: Order Comment: RIN T O COME TRY,KAH,1607 Performed By: #### C BC, CMP #### [address] IGP,APTIMA HPV,AGE GDLNon AGE GDLN ACOG TESTING Note . [facility] Comment on above: TESTS RESULT FLAG UN ITS REF RANGE LAB Clinician Provided Cytology Information Source.............Cervix;Endocervix No. of containers..01 ThinPrep Vial Age Algo ACOG Tona... 30-65 FLAG LEGEND: L-Low Normal,H-High Normal,LL-Alert Low,HH-Alert High <-Panic Low,>-Panic High,A-Abnormal,AA-Critical Abnormal Performed at: 01 [address] [address] Farzana Hennessy MD, HPV APTIMA Negative Negative [facility] Comment on above: This nucleic acid am plification test detects fourteen high- risk HPV types (16,18,31,33,35,39,45,51,52,56,58,59,66,68) without differentiation. Performed at: =[facility] [id number] Media Relations Manager: Farzana Hennessy MD, Phone: [phone] Performed at: [facility] Cyto Histo [address] [place], [place] [id number] Media Relations Manager: Scott Sandoval MD, Phone: [phone] IGP, APTIMA HPV, RFX 16/18,45 Note . [facility] Comment on above: TESTS RESULT FLAG UN ITS REF RANGE LAB DIAGNOSIS: 02 NEGATIVE FOR INTRAEPITHELIAL LESION OR MALIGNANCY. Specimen adequacy: 02 Satisfactory for evaluation. Endocervical and/or squamous metaplastic cells (endocervical component) are present. Performed by: 02 Adelaida Bustamante, Automobile Or Truck Rental Dispatcher (ASCP) . 02 Note: Note 03 The [...] High,A-Abnormal,AA-Critical Abnormal Performed at: 02 [facility] Cyto Histo [id number] [place] [id number] Scott Sandoval MD, 03 WB [facility] [address] [id number] Farzana Hennessy MD, BROOM-ALONE CERVIX ENDOCERVIX [facility] Urinalysis macro (dipstick) panel (U)on 01-28-2024 Bilirubin, UA Negative Negative - 4(70) +++ mg/dL [facility] Blood, UA Negative Negative - 50 Kranthi/mcL [facility] Healthcare Clarity, UA Clear [facility] Color, UA Dark Tania [facility] Glucose, UA Negative Negative - 2000(110) ++++ mg/dL [facility] Interpretation and review of laboratory results Abnormal [facility] Ketones, UA Negative Negative - 160(16) ++++ mg/dL [facility] HOSPITALS [facility] Leukocytes, UA Trace Negative - 500+++ Radha/mcL [facility] Nitrite, UA Negative Negative - Positive NOMS [facility] pH, UA 5.5 5 - 9 [facility] Protein, UA Negative Negative - 2000(20) ++++ mg/dL [facility] Spec Grav, UA 1.025 1 - 1.03 [facility] Urobilinogen, UA 0.2 0.2 - 12 mg/dL [facility] MHPT CULT,URINEon 01-23-2024 Interpretation and review of laboratory results Abnormal [facility] Spec[facility] Description .CLEAN CATCH URINE [facility] Culture ESCHERICHIA COLI >100,000 CFU/ML Abnormal [facility] STREPTOCOCCI, BETA HEMOLYTIC GROUP B 10 to 50,000 CFU/ML Abnormal [facility] Report Status FINAL 01/23/2024 [facility] MHPT CULT,URINE SUSCEPTIBILITY [facility] MHPT CULT,URINE Organism ESCHERICHIA COLI [facility] Method CROW [facility] Ampicillin 16 INTERMEDIATE Intermediate [facility] Cefazolin <=4 SUSCEPTIBLE Susceptible [facility] Cefazolin sensitivit y results can be used to predict the effectiveness of oral Susceptible [facility] MHPT CULT,URINE cephalosporins (eg. Cephalexin) in uncomplicated Urinary Tract Infections due Susceptible [facility] MHPT CULT,URINE to E. coli, K. pneumoniae, and P. mirabilis Susceptible [facility] MHPT CULT,URINE Ceftriaxone <=0.25 SUSCEPTIBLE Susceptible [facility] Negative Susceptible [facility] Gentamicin <=1 SUSCEPTIBLE Susceptible [facility] Levofloxacin <=0.12 SUSCEPTIBLE Susceptible [facility] Nitrofurantoin <=16 SUSCEPTIBLE Susceptible [facility] MHPT CULT,URINE Piperacillin/Tazobac ta m <=4 SUSCEPTIBLE Susceptible [facility] Tobramycin <=1 SUSCEPTIBLE Susceptible [facility] Trimethoprim/Sulfa <=20 SUSCEPTIBLE Susceptible [facility] Original Ordering Provider: RICHA DAVENPORT [facility] ALL BASIC METABOLIC PANELon 01-05-2024 Anion gap [Moles/Vol] 11.1 mmol/L [facility] Calcium [Mass/Vol] 9.2 mg/dL 8.5 - 10. 1 mg/dL [facility] Chloride [Moles/Vol] 105 mmol/L 98 - 10 7 mmol/L [facility] CO2 [Moles/Vol] 28.0 mmol/L 21.0 - 32.0 mmol/L [facility] Creatinine [Mass/Vol] 1.08 mg/dL High 0.55 - 1.02 mg/dL [facility] GFR/1.73 sq M.predicted CKD-EPI (S/P/Bld) [Vol rate/Area] >60 60 - PINF [facility] Glucose [Mass/Vol] 92 mg/dL 74 - 106 mg/dL [facility] Interpretation and review of laboratory results Abnormal [facility] Potassium [Moles/Vol] 4.1 mmol/L 3.5 - 5.1 mmol/L [facility] Sodium [Moles/Vol] 140 mmol/L 136 - 145 mmol/L [facility] TBH EGFR-NON AF GAMBIAN 51 Low 60 - PINF [facility] Urea nitrogen [Mass/Vol] 17.0 mg/dL 7.0 - 18.0 mg/dL [facility] Urea nitrogen/Creatinine [Mass ratio] 15.7 mg/mg [facility] Amphetamine Screen Ql (U)Ord ered By: Jace Graham on 03-23-2023 Amphetamines Ql (U) Negative Negative [facility] Barbiturates [Presence] in U rine by Screen methodOrdered By: Jace Graham on 03-23-2023 Barbiturates Screen Ql (U) Negative Negative [facility] Benzodiazepines Screen Ql (U )Ordered By: Jace Graham on 03-23-2023 Benzodiazepines Ql (U) Negative Negative [facility] Benzoylecgonine [Presence] i n Urine by Screen methodOrdered By: Jace Graham on 03-23-2023 Benzoylecgonine Screen Ql (U) Negative Negative [facility] Cannabinoids [Presence] in U rine by Screen methodOrdered By: Jace Graham on 03-23-2023 Cannabinoids Screen Ql (U) Negative Negative [facility] Comment on above: These are unconfirme d results and should not be used for legal purposes. Drug Cut-Off Concentration: AMPH 1000 ng/mL ELKIN 200 ng/mL ATIYA 200 ng/mL COCM 300 ng/mL OP 300 ng/mL PCP 25 ng/mL THC 20 ng/mL Opiates [Presence] in Urine by Screen methodOrdered By: Jace Graham on 03-23-2023 Opiates Screen Ql (U) Negative Negative [facility] Phencyclidine Screen Ql (U)O rdered By: Jace Graham on 03-23-2023 Phencyclidine Ql (U) Negative Negative [facility] Cholesterol [Mass/volume] in Serum or PlasmaOrdered By: Eduardo Monk on 11-18-2022 Cholesterol [Mass/Vol] 159 mg/dL 140-200 [facility] Comment on above: Chol less than 200 m g/dl low riskChol 201-239 mg/dl borderline riskChol 240 mg/dl and greater high risk Cholesterol in LDL Calc [Mas s/Vol]Ordered By: Eduardo Monk on 11-18-2022 Cholesterol in LDL [Mass/Vol] 84 mg/dL 0-100 [facility] Comment on above: LDL ATP III CLASSIFI CATIONLDL less than 100 mg/dL OptimalLDL 100-129 mg/dL Near or above optimalLDL 130-159 mg/dL Borderline highLDL 160-189 mg/dL HighLDL greater than 189 mg/dL Very high Cholesterol in VLDL Calc [Ma ss/Vol]Ordered By: Eduardo Monk on 11-18-2022 Cholesterol in VLDL [Mass/Vol] 28 mg/dL [facility] Serum or plasma high density lipoprotein (HDL) cholesterol measurementOrdered By: Eduardo Monk on 11-18-2022 Cholesterol in HDL [Mass/Vol] 46 mg/dL 23-92 [facility] Comment on above: HDL CHOL ATP-III CLA SSIFICATION Cardiovascular RiskHDL > or equal to 60 mg/dL LOWHDL < 40 mg/dL HIGH Serum or plasma total choles terol/high density lipoprotein (HDL) cholesterol mass ratOrdered By: Eduardo Monk on 11-18-2022 Cholesterol.total/Chol esterol in HDL [Mass ratio] 3.5 {ratio} <5.0 [facility] Thyrotropin [Units/volume] i n Serum or PlasmaOrdered By: Eduardo Monk on 11-18-2022 TSH Qn 2.13 m[IU]/L 0.45-5.33 [facility] Triglyceride [Mass/volume] i n Serum or PlasmaOrdered By: Eduardo Monk on 11-18-2022 Triglyceride [Mass/Vol] 144 mg/dL 0-149 [facility] Comment on above: TRIG ATP III CLASSIF ICATIONTRIG less than 150 mg/dL NormalTRIG 150-199 mg/dL Borderline highTRIG 200-500 mg/dL High TRIG greater than 500 mg/dL Very highStandard traceable to the Center for Disease Conrtrol and Prevention (CDC) test method. Vitamin D+Metabolites [Mass/ volume] in Serum or PlasmaOrdered By: Eduardo Monk on 11-18-2022 Vitamin D+Metabolites [Mass/Vol] 50.4 ng/mL 30-100 [facility] Comment on above: VITAMIN D STATUS 25( OH)VITAMIN D RANGE (ng/mL) Deficient <20 Insufficient 20 to <30Sufficient 30 to 100Reference: Bin MF,Lakshmi CABRERA, Cristian SMART, et al. Evaluation,treatment, and prevention of vitamin D deficiency; an Endocrine Society clinical practice guideline. JCEM. 2010; 96(7):1911-30. CBC AUTO DIFFon 07-25-2022 BASO # 0.1 103/ul Normal 0.0-0.1 [facility] Comment on above: Performed By: #### A 1C #### [facility] [address] [address] [address] Bebeto Alvarado Basophils/100 WBC (Bld) 0.6 % Normal 0.2-2.0 [facility] Comment on above: Performed By: #### A 1C #### [facility] [address] [address] [address] Bebeto Alvarado EO # 0.2 103/ul Normal 0.0-0.7 [facility] Comment on above: Performed By: #### A 1C #### [facility] [address] [address] [address] Bebeto Alvarado Eosinophils/100 WBC (Bld) 2.3 % Normal 0.9-7.0 [facility] Comment on above: Performed By: #### A 1C #### [facility] [address] [place] [address] Dr. Bebeto Alvarado Erythrocyte distribution width (RBC) [Ratio] 13.8 % Normal 11.0-15.0 [facility] Comment on above: Performed By: #### A 1C #### [facility] [address] [place] [address] Dr. Bebeto Alvarado Hematocrit (Bld) [Volume fraction] 41.2 % Normal 36.0-48.0 [facility] Comment on above: Performed By: #### A 1C #### [facility] [address] [place] [address] Dr. Bebeto Alvarado Hemoglobin (Bld) [Mass/Vol] 13.2 g/dL Normal 12.0-16.0 [facility] Comment on above: Performed By: #### A 1C #### [facility] [address] [place] [address] Dr. Bebeto Alvarado IG # 0.03 10e3/ul Normal 0.00-0.03 [facility] Comment on above: Performed By: #### A 1C #### [facility] [address] [place] [address] Dr. Bebeto Alvarado IG % 0.4 % Normal 0.0-0.5 [facility] Comment on above: Performed By: #### A 1C #### [facility] [address] [place] [address] Dr. Bebeto Alvarado LYMPH # 2.1 103/ul Normal 1.2-3.8 [facility] Comment on above: Performed By: #### A 1C #### [facility] [address] [place] [address] Dr. Bebeto Alvarado Lymphocytes/100 WBC (Bld) 25.9 % Normal 20.5-60.0 [facility] Comment on above: Performed By: #### A 1C #### [facility] [address] [place] [address] Dr. Bebeto Alvarado MANUAL DIFF REQ NO Normal [facility] Comment on above: Performed By: #### A 1C #### [facility] [address] [place] [address] Dr. Bebeto Alvarado MCH (RBC) [Entitic mass] 28.0 pg Normal 26.7-34.0 [facility] Comment on above: Performed By: #### A 1C #### [facility] [address] [place] [address] Dr. Bebeto Alvarado MCHC (RBC) [Mass/Vol] 32.0 g/dL Normal 29.9-35.2 [facility] Comment on above: Performed By: #### A 1C #### [facility] [address] [place] [address] Dr. Bebeto Alvarado MCV (RBC) [Entitic vol] 87.5 fL Normal 81.0-99.0 [facility] Comment on above: Performed By: #### A 1C #### [facility] [address] [place] [address] Dr. Bebeto Alvarado MONO # 0.5 103/ul Normal 0.3-0.8 [facility] Comment on above: Performed By: #### A 1C #### [facility] [address] [place] [address] Dr. Bebeto Alvarado Monocytes/100 WBC (Bld) 6.6 % Normal 1.7-12.0 [facility] Comment on above: Performed By: #### A 1C #### [facility] [address] [place] [address] Dr. Bebeto Alvarado NEUT # 5.1 103/ul Normal 1.4-6.5 [facility] Comment on above: Performed By: #### A 1C #### [facility] [address] [place] [address] Dr. Bebeto Alvarado Neutrophils/100 WBC (Bld) 64.2 % Normal 43.0-75.0 [facility] Comment on above: Performed By: #### A 1C #### [facility] [address] [place] [address] Dr. Bebeto Alvarado Platelet mean volume (Bld) [Entitic vol] 11.2 fL Normal 9.5-13.5 [facility] Comment on above: Performed By: #### A 1C #### [facility] [address] [address] [address] Bebeto Alvarado PLT 252 103/ul Normal 150-450 [facility] Comment on above: Performed By: #### A 1C #### [facility] [address] [address] [address] Bebeto Alvarado RBC 4.71 106/ul Normal 4.20-5.40 [facility] Comment on above: Performed By: #### A 1C #### [facility] [address] [address] [address] Bebeto Alvarado WBC 8.0 103/ul Normal 4.0-11.0 [facility] Comment on above: Performed By: #### A 1C #### [facility] [address] [place] [address] Dr. Bebeto Alvarado GLYCOHEMOGLOBIN A1Con 2022 ADA RECOMMENDATION SEE BELOW Normal [facility] Comment on above: Result Comment: ADA RECOMMENDED LIMIT 4.0 - 6.0 ADA THERAPEUTIC TARGET < 7.0 ACTION SUGGESTED > 7.0 Performed By: #### A 1C #### [facility] [address] [address] [address] Bebeto Alvarado Glucose [Mass/Vol] 114 mg/dL Normal [facility] Comment on above: Performed By: #### A 1C #### [facility] [address] [address] [address] Bebeto Alvarado HbA1c (Bld) [Mass fraction] 5.6 % Normal 4.5-6.2 [facility] Comment on above: Performed By: #### A 1C #### [facility] [address] [address] [address] Bebeto Alvarado IRONon 07-25-2022 Iron [Mass/Vol] 60.0 ug/dL Normal 50.0-170.0 [facility] Comment on above: Performed By: #### V ITB12, IRON #### [facility] [address] [address] [address] Bebeto Alvarado LIPID PROFILEon 07-25-2022 CHOL-HDL RATIO NORM SEE BELOW Normal [facility] Comment on above: Result Comment: 3.3 - 4.4 LOW RISK 4.4 - 7.1 AVERAGE RISK 7.1 - 11.0 MODERATE RISK >11.0 HIGH RISK Performed By: #### C MP, LIPID #### [facility] [address] [address] [address] Bebeto Alvarado Cholesterol [Mass/Vol] 144 mg/dL Normal <=200 [facility] Comment on above: Performed By: #### C MP, LIPID #### [facility] [address] [address] [address] Bebeto Alvarado Cholesterol in HDL [Mass/Vol] 39 mg/dL Critically low 40-60 [facility] Comment on above: Performed By: #### C MP, LIPID #### [facility] [address] [address] [address] Bebeto Alvarado Cholesterol in LDL [Mass/Vol] 74.6 mg/dL Normal [facility] Comment on above: Performed By: #### C MP, LIPID #### [facility] [address] [address] [address] Bebeto Alvarado Cholesterol.total/Chol esterol in HDL [Mass ratio] 3.7 {ratio} Normal [facility] Comment on above: Performed By: #### C MP, LIPID #### [facility] [address] [address] [address] Bebeto Alvarado HDL NORMAL > or = 60 mg/dl - LO W CARDIOVASCULAR RISK <40 mg/dl - HIGH CARDIOVASCULAR RISK Normal [facility] Comment on above: Performed By: #### C MP, LIPID #### [facility] [address] [address] [address] Bebeto Alvarado LDL CALC NORMAL SEE BELOW Normal [facility] Comment on above: Result Comment: <100 mg/dl OPTIMAL 100 - 129 mg/dl NEAR OR ABOVE OPTIMAL 130 - 159 mg/dl BORDERLINE HIGH 160 - 189 mg/dl HIGH >190 mg/dl VERY HIGH Performed By: #### C MP, LIPID #### [facility] [address] [address] [address] Bebeto Alvarado Triglyceride [Mass/Vol] 152 mg/dL Critically high <=150 [facility] Comment on above: Performed By: #### C MP, LIPID #### [facility] [address] [place] [address] Dr. Bebeto Alvarado VLDL CALC 30.4 mg/dL Normal [facility] Comment on above: Performed By: #### C MP, LIPID #### [facility] [address] [place] [address] Dr. Bebeto Alvarado PROF 14(COMP METB)on 023 Albumin [Mass/Vol] 3.7 g/dL Normal 3.4-5.0 [facility] Comment on above: Performed By: #### C MP, LIPID #### [facility] [address] [place] [address] Dr. Bebeto Alvarado Albumin/Globulin [Mass ratio] 0.9 {ratio} Normal [facility] Comment on above: Performed By: #### C MP, LIPID #### [facility] [address] [place] [address] Dr. Bebeto Alvarado ALP [Catalytic activity/Vol] 90 U/L Normal 46-116 [facility] Comment on above: Performed By: #### C MP, LIPID #### [facility] [address] [place] [address] Dr. Bebeto Alvarado ALT [Catalytic activity/Vol] 38 U/L Normal 14-59 [facility] Comment on above: Performed By: #### C MP, LIPID #### [facility] [address] [place] [address] Dr. Bebeto Alvarado Anion gap [Moles/Vol] 12.1 mmol/L Normal [facility] Comment on above: Performed By: #### C MP, LIPID #### [facility] [address] [place] [address] Dr. Bebeto Alvarado AST [Catalytic activity/Vol] 26 U/L Normal 15-37 [facility] Comment on above: Performed By: #### C MP, LIPID #### [facility] [address] [place] [address] Dr. Bebeto Alvarado Bilirubin [Mass/Vol] 0.3 mg/dL Normal 0.2-1.0 [facility] Comment on above: Performed By: #### C MP, LIPID #### [facility] [address] [place] [address] Dr. Bebeto Alvarado Calcium [Mass/Vol] 9.3 mg/dL Normal 8.5-10.1 [facility] Comment on above: Performed By: #### C MP, LIPID #### [facility] [address] [place] [address] Dr. Bebeto Alvarado Chloride [Moles/Vol] 107 mmol/L Normal 98-107 [facility] Comment on above: Performed By: #### C MP, LIPID #### [facility] [address] [place] [address] Dr. Bebeto Alvarado CO2 [Moles/Vol] 27.9 mmol/L Normal 21.0-32.0 [facility] Comment on above: Performed By: #### C MP, LIPID #### [facility] [address] [place] [address] Dr. Bebeto Alvarado Creatinine [Mass/Vol] 0.95 mg/dL Normal 0.55-1.02 [facility] Comment on above: Performed By: #### C MP, LIPID #### [facility] [address] [place] [address] Dr. Bebeto Alvarado EGFR-AF GAMBIAN >60 Normal >=60 [facility] Comment on above: Performed By: #### C MP, LIPID #### [facility] [address] [place] [address] Dr. Bebeto Alvarado EGFR-NON AF GAMBIAN 60 mL/min/1.73m2 Normal >=60 [facility] Comment on above: Performed By: #### C MP, LIPID #### [facility] [address] [place] [address] Dr. Bebeto Alvarado Globulin (S) [Mass/Vol] 3.9 g/dL Normal [facility] Comment on above: Performed By: #### C MP, LIPID #### [facility] [address] [place] [address] Dr. Bebeto Alvarado Glucose [Mass/Vol] 108 mg/dL Critically high 74-106 [facility] Comment on above: Performed By: #### C MP, LIPID #### [facility] [address] [place] [address] Dr. Bebeto Alvarado Potassium [Moles/Vol] 4.0 mmol/L Normal 3.5-5.1 [facility] Comment on above: Performed By: #### C MP, LIPID #### [facility] [address] [place] [address] Dr. Bebeto Alvarado Protein [Mass/Vol] 7.6 g/dL Normal 6.4-8.2 [facility] Comment on above: Performed By: #### C MP, LIPID #### [facility] [address] [place] [address] Dr. Bebeto Alvarado Sodium [Moles/Vol] 143 mmol/L Normal 136-145 [facility] Comment on above: Performed By: #### C MP, LIPID #### [facility] [address] [place] [address] Dr. Bebeto Alvarado Urea nitrogen [Mass/Vol] 15.0 mg/dL Normal 7.0-18.0 [facility] Comment on above: Performed By: #### C MP, LIPID #### [facility] [address] [place] [address] Dr. Bebeto Alvarado Urea nitrogen/Creatinine [Mass ratio] 15.8 mg/mg Normal [facility] Comment on above: Performed By: #### C MP, LIPID #### [facility] [address] [place] [address] Dr. Bebeto Alvarado UA RANDOM W/MICROSCOPICon BACTERIA NONE SEEN Normal NONE SEEN [facility] Comment on above: Performed By: #### A 1C #### [facility] [address] [place] [address] Dr. Bebeto Alvarado Bilirubin Ql (U) Negative Normal NEGATIVE [facility] Comment on above: Performed By: #### A 1C #### [facility] [address] [place] [address] Dr. Bebeto Alvarado CAST NONE SEEN Normal NONE SEEN [facility] Comment on above: Performed By: #### A 1C #### [facility] [address] [place] [address] Dr. Bebeto Alvarado Clarity (U) CLEAR Normal CLEAR [facility] Comment on above: Performed By: #### A 1C #### [facility] [address] [place] [address] Dr. Bebeto Alvarado Color (U) YELLOW Normal YELLOW [facility] Comment on above: Performed By: #### A 1C #### [facility] [address] [place] [address] Dr. Bebeto Alvarado Crystals LM Nom (Urine sed) NONE SEEN Normal NONE SEEN [facility] Comment on above: Performed By: #### A 1C #### [facility] [address] [place] [address] Dr. Bebeto Alvarado Epithelial cells LM Ql (Urine sed) NONE SEEN Normal NONE SEEN /RARE [facility] Comment on above: Performed By: #### A 1C #### [facility] [address] [place] [address] Dr. Bebeto Alvarado Glucose Ql (U) Negative Normal NEGATIVE [facility] Comment on above: Performed By: #### A 1C #### [facility] [address] [place] [address] Dr. Bebeto Alvarado Hemoglobin Ql (U) Negative Normal NEGATIVE [facility] Comment on above: Performed By: #### A 1C #### [facility] [address] [place] [address] Dr. Bebeto Alvarado Ketones Ql (U) Negative Normal NEGATIVE [facility] Comment on above: Performed By: #### A 1C #### [facility] [address] [place] [address] Dr. Bebeto Alvarado LEUKOCYTES Negative Normal NEGATIVE [facility] Comment on above: Performed By: #### A 1C #### [facility] [address] [place] [address] Dr. Bebeto Alvarado MUCOUS NONE SEEN Normal NONE SEEN [facility] Comment on above: Performed By: #### A 1C #### [facility] [address] [place] [address] Dr. Bebeto Alvarado Nitrite Ql (U) Negative Normal NEGATIVE [facility] Comment on above: Performed By: #### A 1C #### [facility] [address] [place] [address] Dr. Bebeto Alvarado pH (U) 5.5 [pH] Normal 5-9 [facility] Comment on above: Performed By: #### A 1C #### [facility] [address] [place] [address] Dr. Bebeto Alvarado RBC NONE SEEN Abnormal 0-2 [facility] Comment on above: Performed By: #### A 1C #### [facility] [address] [place] [address] Dr. Bebeto Alvarado SPEC GRAVITY 1.030 Abnormal 1.005-<=1.02 5 [facility] Comment on above: Performed By: #### A 1C #### [facility] [address] [place] [address] Dr. Bebeto Alvarado UA PROTEIN Negative Normal NEGATIVE/ TRACE [facility] Comment on above: Performed By: #### A 1C #### [facility] [address] [place] [address] Dr. Bebeto Alvarado Urobilinogen Qn (U) 0.2 {Katerin'U}/dL Normal 0.2 - 1. 0 [facility] Comment on above: Performed By: #### A 1C #### [facility] [address] [place] [address] Dr. Bebeto Alvarado WBC NONE SEEN Normal NONE SEEN [facility] Comment on above: Performed By: #### A 1C #### [facility] [address] [place] [address] Dr. Bebeto Alvarado VITAMIN B12on 07-25-2022 Cobalamin (Vitamin B12) [Mass/Vol] 1684.0 pg/mL Critically high 193.0-986.0 [facility] Comment on above: Performed By: #### V ITB12, IRON #### [facility] [address] [place] [address] Dr. Bebeto Alvarado PROF CHEM 8 (BAS METB)on Anion gap [Moles/Vol] 12.2 mmol/L Normal Th e [facility] Comment on above: Performed By: #### B MP #### [facility] [address] [address] [address] Bebeto Alvarado Calcium [Mass/Vol] 8.9 mg/dL Normal 8.5-10.1 [facility] Comment on above: Performed By: #### B MP #### [facility] [address] [address] [address] Bebeto Alvarado Chloride [Moles/Vol] 105 mmol/L Normal 98-107 [facility] Comment on above: Performed By: #### B MP #### [facility] [address] [address] [address] Bebeto Alvarado CO2 [Moles/Vol] 29.6 mmol/L Normal 21.0-32.0 [facility] Comment on above: Performed By: #### B MP #### [facility] [address] [address] [address] Bebeto Alvarado Creatinine [Mass/Vol] 0.95 mg/dL Normal 0.55-1.02 [facility] Comment on above: Performed By: #### B MP #### [facility] [address] [address] [address] Bebeto Alvarado EGFR-AF GAMBIAN >60 Normal >=60 [facility] Comment on above: Performed By: #### B MP #### [facility] [address] [address] [address] Bebeto Alvarado EGFR-NON AF GAMBIAN 60 mL/min/1.73m2 Normal >=60 [facility] Comment on above: Performed By: #### B MP #### [facility] [address] [address] [address] Bebeto Alvarado Glucose [Mass/Vol] 101 mg/dL Normal 74-106 [facility] Comment on above: Performed By: #### B MP #### [facility] [address] [address] [address] Bebeto Alvarado Potassium [Moles/Vol] 3.8 mmol/L Normal 3.5-5.1 [facility] Comment on above: Performed By: #### B MP #### [facility] [address] [place] [address] Dr. Bebeto Alvarado Sodium [Moles/Vol] 143 mmol/L Normal 136-145 [facility] Comment on above: Performed By: #### B MP #### [facility] [address] [place] [address] Dr. Bebeto Alvarado Urea nitrogen [Mass/Vol] 16.0 mg/dL Normal 7.0-18.0 [facility] Comment on above: Performed By: #### B MP #### [facility] [address] [place] [address] Dr. Bebeto Alvarado Urea nitrogen/Creatinine [Mass ratio] 16.8 mg/mg Normal [facility] Comment on above: Performed By: #### B MP #### [facility] [address] [place] [address] Dr. Bebeto Alvarado CBC AUTO DIFFon 11-21-2021 BASO # 0.1 103/ul Normal 0.0-0.1 [facility] Comment on above: Performed By: #### A 1C #### [facility] [address] [place] [address] Dr. Bebeto Alvarado Basophils/100 WBC (Bld) 1.0 % Normal 0.2-2.0 [facility] Comment on above: Performed By: #### A 1C #### [facility] [address] [place] [address] Dr. Bebeto Alvarado EO # 0.2 103/ul Normal 0.0-0.7 [facility] Comment on above: Performed By: #### A 1C #### [facility] [address] [place] [address] Dr. Bebeto Alvarado Eosinophils/100 WBC (Bld) 3.3 % Normal 0.9-7.0 [facility] Comment on above: Performed By: #### A 1C #### [facility] [address] [place] [address] Dr. Bebeto Alvarado Erythrocyte distribution width (RBC) [Ratio] 13.8 % Normal 11.0-15.0 [facility] Comment on above: Performed By: #### A 1C #### [facility] [address] [place] [address] Dr. Bebeto Alvarado Hematocrit (Bld) [Volume fraction] 38.8 % Normal 36.0-48.0 [facility] Comment on above: Performed By: #### A 1C #### [facility] [address] [place] [address] Dr. Bebeto Alvarado Hemoglobin (Bld) [Mass/Vol] 12.5 g/dL Normal 12.0-16.0 [facility] Comment on above: Performed By: #### A 1C #### [facility] [address] [place] [address] Dr. Bebeto Alvarado IG # 0.02 10e3/ul Normal 0.00-0.03 [facility] Comment on above: Performed By: #### A 1C #### [facility] [address] [place] [address] Dr. Bebeto Alvarado IG % 0.3 % Normal 0.0-0.5 [facility] Comment on above: Performed By: #### A 1C #### [facility] [address] [place] [address] Dr. Bebeto Alvarado LYMPH # 1.9 103/ul Normal 1.2-3.8 [facility] Comment on above: Performed By: #### A 1C #### [facility] [address] [place] [address] Dr. Bebeto Alvarado Lymphocytes/100 WBC (Bld) 29.6 % Normal 20.5-60.0 [facility] Comment on above: Performed By: #### A 1C #### [facility] [address] [place] [address] Dr. Bebeto Alvarado MANUAL DIFF REQ NO Normal [facility] Comment on above: Performed By: #### A 1C #### [facility] [address] [place] [address] Dr. Bebeto Alvarado MCH (RBC) [Entitic mass] 28.0 pg Normal 26.7-34.0 [facility] Comment on above: Performed By: #### A 1C #### [facility] [address] [place] [address] Dr. Bebeto Alvarado MCHC (RBC) [Mass/Vol] 32.2 g/dL Normal 29.9-35.2 [facility] Comment on above: Performed By: #### A 1C #### [facility] [address] [place] [address] Dr. Bebeto Alvarado MCV (RBC) [Entitic vol] 86.8 fL Normal 81.0-99.0 [facility] Comment on above: Performed By: #### A 1C #### [facility] [address] [place] [address] Dr. Bebeto Alvarado MONO # 0.4 103/ul Normal 0.3-0.8 [facility] Comment on above: Performed By: #### A 1C #### [facility] [address] [place] [address] Dr. Bebeto Alvarado Monocytes/100 WBC (Bld) 5.7 % Normal 1.7-12.0 [facility] Comment on above: Performed By: #### A 1C #### [facility] [address] [place] [address] Dr. Bebeto Alvarado NEUT # 3.8 103/ul Normal 1.4-6.5 [facility] Comment on above: Performed By: #### A 1C #### [facility] [address] [place] [address] Dr. Bebeto Alvarado Neutrophils/100 WBC (Bld) 60.1 % Normal 43.0-75.0 [facility] Comment on above: Performed By: #### A 1C #### [facility] [address] [place] [address] Dr. Bebeto Alvarado Platelet mean volume (Bld) [Entitic vol] 11.0 fL Normal 9.5-13.5 [facility] Comment on above: Performed By: #### A 1C #### [facility] [address] [place] [address] Dr. Bebeto Alvarado PLT 264 103/ul Normal 150-450 [facility] Comment on above: Performed By: #### A 1C #### [facility] [address] [place] [address] Dr. Bebeto Alvarado RBC 4.47 106/ul Normal 4.20-5.40 [facility] Comment on above: Performed By: #### A 1C #### [facility] [address] [place] [address] Dr. Bebeto Alvarado WBC 6.3 103/ul Normal 4.0-11.0 [facility] Comment on above: Performed By: #### A 1C #### [facility] [address] [address] [address] Bebteo Alvarado GLYCOHEMOGLOBIN A1Con 2021 ADA RECOMMENDATION SEE BELOW Normal [facility] Comment on above: Result Comment: ADA RECOMMENDED LIMIT 4.0 - 6.0 ADA THERAPEUTIC TARGET < 7.0 ACTION SUGGESTED > 7.0 Performed By: #### A 1C #### [facility] [address] [place] [address] Dr. Bebeto Alvarado Glucose [Mass/Vol] 105 mg/dL Normal [facility] Comment on above: Performed By: #### A 1C #### [facility] [address] [place] [address] Dr. Bebeto Alvarado HbA1c (Bld) [Mass fraction] 5.3 % Normal 4.5-6.2 [facility] Comment on above: Performed By: #### A 1C #### [facility] [address] [place] [address] Dr. Bebeto Alvarado IRONon 11-21-2021 Iron [Mass/Vol] 59.0 ug/dL Normal 50.0-170.0 [facility] Comment on above: Performed By: #### A 1C #### [facility] [address] [place] [address] Dr. Bebeto Alvarado LIPID PROFILEon 11-21-2021 CHOL-HDL RATIO NORM SEE BELOW Normal [facility] Comment on above: Result Comment: 3.3 - 4.4 LOW RISK 4.4 - 7.1 AVERAGE RISK 7.1 - 11.0 MODERATE RISK >11.0 HIGH RISK Performed By: #### C MP, LIPID #### [facility] [address] [place] [address] Dr. Bebeto Alvarado Cholesterol [Mass/Vol] 139 mg/dL Normal <=200 Th e [facility] Comment on above: Performed By: #### C MP, LIPID #### [facility] [address] [address] [address] Bebeto Alvarado Cholesterol in HDL [Mass/Vol] 35 mg/dL Critically low 40-60 [facility] Comment on above: Performed By: #### C MP, LIPID #### [facility] [address] [address] [address] Bebeto Alvarado Cholesterol in LDL [Mass/Vol] 69.6 mg/dL Normal [facility] Comment on above: Performed By: #### C MP, LIPID #### [facility] [address] [address] [address] Bebeto Alvarado Cholesterol.total/Chol esterol in HDL [Mass ratio] 4.0 {ratio} Normal [facility] Comment on above: Performed By: #### C MP, LIPID #### [facility] [address] [address] [address] Bebeto Alvarado HDL NORMAL > or = 60 mg/dl - LO W CARDIOVASCULAR RISK <40 mg/dl - HIGH CARDIOVASCULAR RISK Normal [facility] Comment on above: Performed By: #### C MP, LIPID #### [facility] [address] [address] [address] Bebeto Alvarado LDL CALC NORMAL SEE BELOW Normal [facility] Comment on above: Result Comment: <100 mg/dl OPTIMAL 100 - 129 mg/dl NEAR OR ABOVE OPTIMAL 130 - 159 mg/dl BORDERLINE HIGH 160 - 189 mg/dl HIGH >190 mg/dl VERY HIGH Performed By: #### C MP, LIPID #### [facility] [address] [address] [address] Bebeto Alvarado Triglyceride [Mass/Vol] 172 mg/dL Critically high <=150 [facility] Comment on above: Performed By: #### C MP, LIPID #### [facility] [address] [address] [address] Bebeto Alvarado VLDL CALC 34.4 mg/dL Normal [facility] Comment on above: Performed By: #### C MP, LIPID #### [facility] [address] [address] [address] Bebeto Alvarado PROF 14(COMP METB)on 022 Albumin [Mass/Vol] 3.8 g/dL Normal 3.4-5.0 [facility] Comment on above: Performed By: #### C MP, LIPID #### [facility] [address] [place] [address] Dr. Bebeto Alvarado Albumin/Globulin [Mass ratio] 1.1 {ratio} Normal [facility] Comment on above: Performed By: #### C MP, LIPID #### [facility] [address] [place] [address] Dr. Bebeto Alvaraod ALP [Catalytic activity/Vol] 96 U/L Normal 46-116 [facility] Comment on above: Performed By: #### C MP, LIPID #### [facility] [address] [place] [address] Dr. Bebeto Alvarado ALT [Catalytic activity/Vol] 25 U/L Normal 14-59 [facility] Comment on above: Performed By: #### C MP, LIPID #### [facility] [address] [place] [address] Dr. Bebeto Alvarado Anion gap [Moles/Vol] 11.8 mmol/L Normal [facility] Comment on above: Performed By: #### C MP, LIPID #### [facility] [address] [place] [address] Dr. Bebeto Alvarado AST [Catalytic activity/Vol] 20 U/L Normal 15-37 [facility] Comment on above: Performed By: #### C MP, LIPID #### [facility] [address] [place] [address] Dr. Bebeto Alvarado Bilirubin [Mass/Vol] 0.4 mg/dL Normal 0.2-1.0 [facility] Comment on above: Performed By: #### C MP, LIPID #### [facility] [address] [place] [address] Dr. Bebeto Alvarado Calcium [Mass/Vol] 8.8 mg/dL Normal 8.5-10.1 [facility] Comment on above: Performed By: #### C MP, LIPID #### [facility] [address] [address] [address] Bebeto Alvarado Chloride [Moles/Vol] 106 mmol/L Normal 98-107 [facility] Comment on above: Performed By: #### C MP, LIPID #### [facility] [address] [address] [address] Bebeto Alvarado CO2 [Moles/Vol] 27.0 mmol/L Normal 21.0-32.0 [facility] Comment on above: Performed By: #### C MP, LIPID #### [facility] [address] [address] [address] Bebeto Alvarado Creatinine [Mass/Vol] 0.97 mg/dL Normal 0.55-1.02 [facility] Comment on above: Performed By: #### C MP, LIPID #### [facility] [address] [place] [address] Dr. Bebeto Alvarado EGFR-AF GAMBIAN >60 Normal >=60 [facility] Comment on above: Performed By: #### C MP, LIPID #### [facility] [address] [address] [address] Bebeto Alvarado EGFR-NON AF GAMBIAN 59 mL/min/1.73m2 Critically low >=60 [facility] Comment on above: Performed By: #### C MP, LIPID #### [facility] [address] [place] [address] Dr. Bebeto Alvarado Globulin (S) [Mass/Vol] 3.4 g/dL Normal [facility] Comment on above: Performed By: #### C MP, LIPID #### [facility] [address] [address] [address] Bebeto Alvarado Glucose [Mass/Vol] 103 mg/dL Normal 74-106 [facility] Comment on above: Performed By: #### C MP, LIPID #### [facility] [address] [address] [address] Bebeto Alvarado Potassium [Moles/Vol] 3.8 mmol/L Normal 3.5-5.1 [facility] Comment on above: Performed By: #### C MP, LIPID #### [facility] [address] [address] [address] Bebeto Alvarado Protein [Mass/Vol] 7.2 g/dL Normal 6.4-8.2 [facility] Comment on above: Performed By: #### C MP, LIPID #### [facility] [address] [place] [address] Dr. Bebeto Alvarado Sodium [Moles/Vol] 141 mmol/L Normal 136-145 [facility] Comment on above: Performed By: #### C MP, LIPID #### [facility] [address] [place] [address] Dr. Bebeto Alvarado Urea nitrogen [Mass/Vol] 11.0 mg/dL Normal 7.0-18.0 [facility] Comment on above: Performed By: #### C MP, LIPID #### [facility] [address] [place] [address] Dr. Bebeto Alvarado Urea nitrogen/Creatinine [Mass ratio] 11.3 mg/mg Normal [facility] Comment on above: Performed By: #### C MP, LIPID #### [facility] [address] [place] [address] Dr. Bebeto Alvarado URIC ACID SERUMon 11-21-2021 Urate [Mass/Vol] 7.3 mg/dL Critically high 2.6-6.0 [facility] Comment on above: Performed By: #### A 1C #### [facility] [address] [place] [address] Dr. Bebeto Alvarado VITAMIN B12on 11-21-2021 Cobalamin (Vitamin B12) [Mass/Vol] 2123.0 pg/mL Critically high 193.0-986.0 [facility] Comment on above: Performed By: #### A 1C #### [facility] [address] [place] [address] Dr. Bebeto Alvarado Physician Referralon 022 Physician Referral [id number] [facility] KNEE RIGHT 1 OR 2 VWSon 11-0 KNEE RIGHT 1 OR 2 VWS [facility] Department of Radiology [address] [place] [address] ======== Patient Name: MICHELLE BE [...] , Exam: KNEE RIGHT 1 OR 2 [facility] ======== KNEE RIGHT 1 OR 2 S 02/08/2019 10:38 AM EST SIGNS AND SYMPTOMS: [...] Electronically signed by:Debra Del Cid. Transcribed by: [email or web address], User Resident: Electronically Signed by: DEBRA DEL CID @ 02/08/2019 11:16 AM Normal [facility] Comment on above: Order Comment: , Vie ws (X-RAY, KNEE): Radiologic Protocol , Weight Bearing?: N , With or Without Brace/Cast/Collar: With , Views (X-RAY, KNEE): Radiologic Protocol , Weight Bearing?: N , With or Without Brace/Cast/Collar: With , , , Ordering Provider - AHSAN BINGHAM PA-C , KNEE RIGHT 1 OR 2 [facility] KNEE RIGHT 1 OR 2 [facility] Department of Radiology [address] [place] [id number] ======== Patient Name: MICHELLE BE : 1960 Sex: F Age: Race: White Pt. Location: Patient Status: Ordered Date: 12/07/2018 10:20:00 AM Completed Date: 12/07/2018 10:20 AM Requesting Provider: AHSAN BINGHAM Attending Provider: Report Copy To: Signs & Symptoms: S82.001A Unsp fracture of right patella, init for clos fx I10 History: [place] Comments: , , , Ordering Provider - AHSAN BNIGHAM PA-C , Exam: KNEE RIGHT 1 OR 2 [facility] ======== KNEE RIGHT 1 OR 2 [...] complications. Electronically signed by:Tomasz Stoll. Transcribed by: [email or web address], User Resident: Electronically Signed by: TOMASZ STOLL @ 12/07/2018 11:14 AM Normal [facility] Comment on above: Order Comment: , Vie ws (X-RAY, KNEE): Radiologic Protocol , Weight Bearing?: N , With or Without Brace/Cast/Collar: With , Views (X-RAY, KNEE): Radiologic Protocol , Weight Bearing?: N , With or Without Brace/Cast/Collar: With , , , Ordering Provider - AHSAN BINGHAM PA-C , KNEE RIGHT 1 OR 2 [facility] KNEE RIGHT 1 OR 2 S [facility] Department of Radiology [address] [place] [id number] ======== Patient Name: MICHELLE BE : 1960 Sex: F Age: Race: White Pt. 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 Transcribed by: [email or web address], User Resident: Electronically Signed by: ANUP ELLISON @ 10/06/2018 02:48 PM Normal [facility] Comment on above: Order Comment: , Vie ws (X-RAY, KNEE): Radiologic Protocol , Weight Bearing?: N , With or Without Brace/Cast/Collar: With , Views (X-RAY, KNEE): Radiologic Protocol , Weight Bearing?: N , With or Without Brace/Cast/Collar: With , , , Ordering Provider - AHSAN BINGHAM PA-C , KNEE RIGHT 1 OR 2 VWSon 08-05 KNEE RIGHT 1 OR 2 S [facility] Department of Radiology [address] [place] [phone] ======== Patient Name: MICHELLE BE : [...] effusion Electronically signed by:Anup Ellison. Transcribed by: [email or web address], User Resident: Electronically Signed by: ANUP ELLISON @ 08/26/2018 04:56 PM Normal [facility] Comment on above: Order Comment: , Vie ws (X-RAY, KNEE): Radiologic Protocol , Weight Bearing?: N , With or Without Brace/Cast/Collar: With , Views (X-RAY, KNEE): Radiologic Protocol , Weight Bearing?: N , With or Without Brace/Cast/Collar: With , , , Ordering Provider - AHSAN BINGHAM PA-C , KNEE RIGHT 1 OR 2 [facility] 07-06 KNEE RIGHT 1 OR 2 [facility] Department of Radiology [address] [place] [phone] ======== Patient Name: MICHELLE BE : 1960 Sex: F Age: Race: White Pt. Location: Patient Status: Ordered Date: 07/29/2018 2:10:00 PM Completed Date: 07/29/2018 02:12 PM Requesting Provider: AHSAN BINGHAM Attending Provider: Report Copy To: Signs & Symptoms: S82.001A Unsp fracture of right patella, init for clos fx I10 History: [place] Comments: , , , Ordering Provider - [...] compartment Electronically signed by:Anup Ellison. Transcribed by: [email or web address], User Resident: Electronically Signed by: ANUP ELLISON @ 07/29/2018 03:41 PM Normal [facility] Comment on above: Order Comment: , Mabel ws (X-RAY, KNEE): Radiologic Protocol , Weight Bearing?: N , With or Without Brace/Cast/Collar: With , Views (X-RAY, KNEE): Radiologic Protocol , Weight Bearing?: N , With or Without Brace/Cast/Collar: With , , , Ordering Provider - AHSAN BINGHAM PA-C , KNEE RIGHT 3 [facility] 9 KNEE RIGHT [address] [facility] Department of Radiology [address] [place] [phone] ======== Patient Name: MICHELLE BE : 1960 Sex: F Age: Race: White Pt. Location: Patient Status: Ordered Date: 07/15/2018 8:45:00 AM Completed Date: 07/15/2018 08:47 AM Requesting Provider: AHSAN BINGHAM Attending Provider: Report Copy To: Signs & Symptoms: S82.001A Unsp fracture of right patella, init for clos fx I10 History: [place] Comments: , , , Ordering Provider - AHSAN BINGHAM PA-C , Exam: KNEE RIGHT 3 [facility] ======== KNEE RIGHT 3 S 07/15/2018 [...] knee Electronically signed by:Anup Ellison. Transcribed by: [email or web address], User Resident: Electronically Signed by: ANUP ELLISON @ 07/15/2018 03:31 PM Normal [facility] Comment on above: Order Comment: , Mabel ws (X-RAY, KNEE): Radiologic Protocol , Weight Bearing?: N , With or Without Brace/Cast/Collar: With , Views (X-RAY, KNEE): Radiologic Protocol , Weight Bearing?: N , With or Without Brace/Cast/Collar: With , , , Ordering Provider - AHSAN BINGHAM PA-C , Operative Reporton 9 Operative Report MR#: [id number] [facility] Pt. Name: Michelle Be Room #: [...] hardware, right patella. IMPLANTS: 2 x 4.5 Darian partially-threaded cannulated screws. ANESTHESIA: General. FLUIDS: Per [...] Duarte MD Date Trans: 07/03/2018 04:28 A/terry [id number] Normal [facility] *ANAEROBIC CULTUREon 019 *ANAEROBIC CULTURE Clinical Report: (D) Specimen/Source: SWAB/RT KNEE Collected: 07/02/2018 13:53 Status: Final Last Updated: 07/07/2018 08:02 CULT RES (Final) No Anaerobes Isolated 5 Days Normal [facility] Comment on above: Performed By: #### 3 [id number] #### [address] *WOUND CULTUREon 07-02-2018 *WOUND CULTURE Clinical Report: (D) Specimen/Source: WOUND/INTRAOP SPEC Collected: 07/02/2018 13:53 Status: Final Last Updated: 07/07/2018 10:13 (1) #1 RT KNEE GRAM (Final) Rare Polys No Bacteria Seen CULT RES (Final) No Growth Day [address] [facility] Comment on above: Order Comment: #1 RT KNEE Performed By: #### 3 0343 #### [address] KNEE RIGHT 1 OR 2 [facility] 06-05 KNEE RIGHT 1 OR 2 S [facility] Department of Radiology [address] [place] [address] ======== Patient Name: MICHELLE BE [...] Electronically signed by:Debra Del Cid. Transcribed by: [email or web address], User Resident: Electronically Signed by: DEBRA DEL CID @ 07/02/2018 02:03 PM Normal [facility] Comment on above: Order Comment: ORIF VS PERCUTANEOUS FIXATION RIGHT PATELLA POC GLUCOSE LABon 07-02-2018 Glucose [Mass/Vol] 108 mg/dL High 70-100 [facility] Comment on above: Performed By: #### 8 [id number] #### [facility] [address] [place] [address], [facility] APTTon 06-30-2018 aPTT Coag (Bld) [Time] 30.6 s Normal 25.0-35.0 [facility] Comment on above: Result Comment: ALL [...] THIS PURPOSE. Performed By: #### 5 [id number], [id number] #### [facility] [address] [place] [address], [facility] BASIC METABOLIC PANELon - Calcium [Mass/Vol] 9.7 mg/dL Normal 8.6-10.3 [facility] Comment on above: Performed By: #### 0 0071 #### [facility] [address] [place] [address], [facility] Chloride [Moles/Vol] 102 mmol/L Normal 98-107 [facility] Comment on above: Performed By: #### 0 0071 #### [facility] [address] [place] [address], [facility] CO2 [Moles/Vol] 28 mmol/L Normal 21-31 [facility] Comment on above: Performed By: #### 0 0071 #### [facility] [address] [place] [address], [facility] Creatinine [Mass/Vol] 1.20 mg/dL Normal 0.60-1.20 [facility] Comment on above: Performed By: #### 0 0071 #### [facility] [address] [place] [address], [facility] GFR/1.73 sq M predicted among blacks MDRD (S/P/Bld) [Vol rate/Area] 56 ml/min/1.73sq m Abnormal >60 [facility] Comment on above: Performed By: #### 0 0071 #### [facility] [address] [place] [address], [facility] GFR/1.73 sq M predicted among non-blacks MDRD (S/P/Bld) [Vol rate/Area] 47 ml/min/1.73sq m Abnormal >60 [facility] Comment on above: Performed By: #### 0 0071 #### [facility] [address] Glucose [Mass/Vol] 97 mg/dL Normal 70-100 [facility] Comment on above: Performed By: #### 0 0071 #### [facility] [address] Potassium [Moles/Vol] 4.1 mmol/L Normal 3.5-5.1 [facility] Comment on above: Performed By: #### 0 0071 #### [facility] [address] Sodium [Moles/Vol] 137 mmol/L Normal 136-145 [facility] Comment on above: Performed By: #### 0 0071 #### [facility] [address] Urea nitrogen [Mass/Vol] 19 mg/dL Normal 7-25 [facility] Comment on above: Performed By: #### 0 0071 #### [facility] [address] CBC W/DIFFon 06-30-2018 ABS BASOPHILS 0.1 10*3/uL Normal 0.0-0.2 [facility] Comment on above: Performed By: #### 5 102 #### [facility] [address] [facility]. [address] ABS IMM GRANS 0.0 10*3/uL Normal 0.0-0.2 [facility] Comment on above: Performed By: #### 5 102 #### [facility] [address] ABS NEUTROPHILS 6.4 10*3/uL Normal 1.6-7.6 [facility] Comment on above: Performed By: #### 5 102 #### [facility] [address] Basophils/100 WBC (Bld) 0.7 % Normal 0.0-1.0 [facility] Comment on above: Performed By: #### 5 0103 #### [facility] [address] [facility] [place] [address], [facility] Eosinophils (Bld) [#/Vol] 0.2 10*3/uL Normal 0.0-0.5 [facility] Comment on above: Performed By: #### 5 0103 #### [facility] [address] [facility] [place] [address], [facility] Eosinophils/100 WBC (Bld) 1.5 % Normal 0.0-6.0 [facility] Comment on above: Performed By: #### 5 0103 #### [facility] [address] Erythrocyte distribution width (RBC) [Ratio] 14.4 % Normal 11.5-15.0 [facility] Comment on above: Performed By: #### 5 0103 #### [facility] [address] Hematocrit (Bld) [Volume fraction] 40.6 % Normal 36.0-45.0 [facility] Comment on above: Performed By: #### 5 0103 #### [facility] [address] [facility] [address], [facility] Hemoglobin (Bld) [Mass/Vol] 13.3 g/dL Normal 12.0-15.0 [facility] Comment on above: Performed By: #### 5 0103 #### [facility] [address] [place] [address], [facility] IMMATURE GRANS 0.4 % Normal 0.0-1.0 [facility] Comment on above: Performed By: #### 5 0103 #### [facility] [address] [facility] [place] [address], [facility] Lymphocytes (Bld) [#/Vol] 2.6 10*3/uL Normal 1.2-4.0 [facility] Comment on above: Performed By: #### 5 0103 #### [facility] [address] [place] [address], [facility] Lymphocytes/100 WBC (Bld) 26.5 % Normal 20.0-45.0 [facility] Comment on above: Performed By: #### 5 0103 #### [facility] [address] [facility] [place] [address], [facility] MCH (RBC) [Entitic mass] 27.4 pg Normal 27.0-33.0 [facility] Comment on above: Performed By: #### 5 3 #### [facility] [address] [facility] [address] MCHC (RBC) [Mass/Vol] 32.8 g/dL Normal 32.0-35.0 [facility] Comment on above: Performed By: #### 5 3 #### [facility] [address] [facility] [place] [address], [facility] MCV (RBC) [Entitic vol] 83.5 fL Normal 82.0-98.0 [facility] Comment on above: Performed By: #### 5 3 #### [facility] [address] [facility] [place] [address], [facility] Monocytes (Bld) [#/Vol] 0.5 10*3/uL Normal 0.1-1.0 [facility] Comment on above: Performed By: #### 5 3 #### [facility] [address] [facility] [place] [address], [facility] MONOS 5.0 % Normal 5.0-12.0 [facility] Comment on above: Performed By: #### 5 3 #### [facility] [address] [facility] [address], [place] Neutrophils/100 WBC (Bld) 65.9 % Normal 40.0-72.0 [facility] Comment on above: Performed By: #### 5 0103 #### [facility] [address] [place] [address], [facility] Nucleated RBC/100 WBC (Bld) [Ratio] 0 % Normal 0-0 [facility] Comment on above: Performed By: #### 5 0103 #### [facility] [address] [place] [address], [facility] PLAT CNT 290 10*3/uL Normal 150-400 [facility] Comment on above: Performed By: #### 5 0103 #### [facility] [address] [place] [address], [facility] RBC (Bld) [#/Vol] 4.86 10*6/uL Normal 3.80-5.00 [facility] Comment on above: Performed By: #### 5 0103 #### [facility] [address] [place] [address], [facility] WBC (Bld) [#/Vol] 9.68 10*3/uL Normal 4.00-10.60 [facility] Comment on above: Performed By: #### 5 0103 #### [address] [address], [facility] KNEE RIGHT 1 OR 2 VWSon 06-05 KNEE RIGHT 1 OR 2 S [facility] Department of Radiology [address] [place] [id number] ======== Patient Name: MICHELLE BE : 1960 Sex: F Age: Race: White Pt. 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 Transcribed by: [email or web address], User Resident: Electronically Signed by: DEBRA DEL CID @ 06/30/2018 11:52 AM Normal [facility] Comment on above: Order Comment: , [...] 0.98 {INR} Normal 0.91-1.16 [facility] Comment on above: Result Comment: ACCC [...] CHEST 1995;[id number]. Performed By: #### 5 6101, [address] #### [place] [address] PT Coag (PPP) [Time] 13.0 s Normal 12.3-14.8 [facility] Comment on above: Result Comment: ALL RESULTS MUST BE INTERPRETED WITH RESPECT TO BLOOD DRAWING ARTIFACT OR DILUTION ERROR OF ANTICOAGULANT AT THE TIME OF SAMPLING. Performed By: #### 5 6101, [address] #### [address] [address], [facility] KNEE RIGHT 3 [facility] 9 KNEE RIGHT 3 S [facility] Department of Radiology [address] [place] [id number] ======== Patient Name: MICHELLE BE : 1960 Sex: F Age: Race: White Pt. Location: Patient Status: O Ordered Date: 06/15/2018 1:35:00 PM Completed Date: 06/15/2018 01:34 PM Requesting Provider: AMPARO ZHANG Attending Provider: AMPARO ZHANG Report Copy To: ADELAIDA CARRION Signs & Symptoms: M17.11 Unilateral primary osteoarthritis, right knee I10 History: [place] Comments: , Weight Bearing?: Y , Weight Bearing?: Y , , , Ordering Provider - AMPARO ZHANG PA-C , Exam: KNEE RIGHT 3 [facility] ======== KNEE RIGHT 3 [facility] 06/15/2018 1:34 PM EDT SIGNS AND SYMPTOMS: M17.11 Unilateral primary osteoarthritis, right knee I10 TECHNOLOGIST COMMENTS: Patient states complaint of right knee pain QUESTION FOR THE RADIOLOGIST: , Weight Bearing?: Y , Weight Bearing?: Y , , , Ordering Provider - AMPARO LEATHA PA-C , PROTOCOL: AP,Lateral and Tangential views [...] effusion Electronically signed by:Anup Ellison. Transcribed by: [email or web address], User Resident: Electronically Signed by: ANUP ELLISON @ 06/15/2018 03:50 PM Normal [facility] Comment on above: Order Comment: , Isaiah ght Bearing?: Y , Weight Bearing?: Y , , , Ordering Mariela ZHANG PA-C , Vital Signs Date Time Vital Sign Value Performing Clinician Facility 08-16-2024 11:25-0400 Body mass index (BMI) [Ratio] 48.23 kg/m2 Adelaida Carrion PHYSICAL MEDICINE TEACHER Work Phone: [facility] 08-16-2024 11:25-0400 Body temperature 98.49 [degF] Adelaida Carrion PHYSICAL MEDICINE TEACHER Work Phone: [facility] 08-16-2024 11:25-0400 Body weight 127.46 kg Adelaida Carrion PHYSICAL MEDICINE TEACHER Work Phone: [facility] 08-16-2024 11:25-0400 Diastolic blood pressure 82 mm[Hg] Adelaida Carrion PHYSICAL MEDICINE TEACHER Work Phone: [facility] 08-16-2024 11:25-0400 Heart rate 67 /min Adelaida Carrion PHYSICAL MEDICINE TEACHER Work Phone: [facility] 08-16-2024 11:25-0400 Respiratory rate 18 /min Adelaida Carrion PHYSICAL MEDICINE TEACHER Work Phone: [facility] 08-16-2024 11:25-0400 SaO2% (BldA) [Mass fraction] 97 % Adelaida Aichholz PHYSICAL MEDICINE TEACHER Work Phone: [facility] 08-16-2024 11:25-0400 Systolic blood pressure 120 mm[Hg] Adelaida Aichholz PHYSICAL MEDICINE TEACHER Work Phone: [facility] 07-27-2024 11:16-0400 Body mass index (BMI) [Ratio] 50.67 kg/m2 Adelaida Aichholz PHYSICAL MEDICINE TEACHER Work Phone: [facility] 07-27-2024 11:16-0400 Body temperature 98.8 [degF] Adelaida Aichholz PHYSICAL MEDICINE TEACHER Work Phone: [facility] 07-27-2024 11:16-0400 Body weight 133.9 kg Adelaida Aichholz PHYSICAL MEDICINE TEACHER Work Phone: [facility] 07-27-2024 11:16-0400 Diastolic blood pressure 86 mm[Hg] Adelaida Aichholz PHYSICAL MEDICINE TEACHER Work Phone: [facility] 07-27-2024 11:16-0400 Heart rate 82 /min Adelaida Aichholz PHYSICAL MEDICINE TEACHER Work Phone: [facility] 07-27-2024 11:16-0400 Respiratory rate 24 /min Adelaida Aichholz PHYSICAL MEDICINE TEACHER Work Phone: [facility] 07-27-2024 11:16-0400 SaO2% (BldA) [Mass fraction] 97 % Adelaida Aichholz PHYSICAL MEDICINE TEACHER Work Phone: [facility] 07-27-2024 11:16-0400 Systolic blood pressure 124 mm[Hg] Adelaida Aichholz PHYSICAL MEDICINE TEACHER Work Phone: [facility] 07-26-2024 10:48-0400 Body height 162.6 cm Juany REDDY Work Phone: [facility] 07-26-2024 10:48-0400 Body mass index (BMI) [Ratio] 50.98 kg/m2 Juany Lowe PA Work Phone: [facility] 07-26-2024 10:48-0400 Body weight 134.72 kg Juany Lowe PA Work Phone: [facility] 07-26-2024 10:48-0400 Diastolic blood pressure 84 mm[Hg] Juany Lowe PA Work Phone: [facility] 07-26-2024 10:48-0400 Systolic blood pressure 126 mm[Hg] Juany Lowe PA Work Phone: [facility] 05-24-2024 08:19-0500 Body height 162.6 cm Juany Lowe PA Work Phone: [facility] 05-24-2024 08:19-0500 Body mass index (BMI) [Ratio] 50.29 kg/m2 Juany Lowe PA Work Phone: [facility] 05-24-2024 08:19-0500 Body weight 132.9 kg Juany Lowe PA Work Phone: [facility] 05-24-2024 08:19-0500 Diastolic blood pressure 72 mm[Hg] Juany Lowe PA Work Phone: [facility] 05-24-2024 08:19-0500 Heart rate 62 /min Juany Lowe PA Work Phone: [facility] 05-24-2024 08:19-0500 Respiratory rate 16 /min Juany Lowe PA Work Phone: [facility] 05-24-2024 08:19-0500 SaO2% (BldA) [Mass fraction] 100 % Juany Lowe PA Work Phone: [facility] 05-24-2024 08:19-0500 Systolic blood pressure 110 mm[Hg] Juany Lowe PA Work Phone: [facility] 05-12-2024 10:04-0500 Body height 162.6 cm Adelaida Carrion PHYSICAL MEDICINE TEACHER Work Phone: [facility] 05-12-2024 10:04-0500 Body mass index (BMI) [Ratio] 49.16 kg/m2 Adelaida Iglesiasz PHYSICAL MEDICINE TEACHER Work Phone: [facility] 05-12-2024 10:04-0500 Body temperature 98.49 [degF] Adelaida Iglesiasz PHYSICAL MEDICINE TEACHER Work Phone: [facility] 05-12-2024 10:04-0500 Body weight 129.91 kg Adelaidamonse Sousaholz PHYSICAL MEDICINE TEACHER Work Phone: [facility] 05-12-2024 10:04-0500 Diastolic blood pressure 78 mm[Hg] Adelaida Merryholz PHYSICAL MEDICINE TEACHER Work Phone: [facility] 05-12-2024 10:04-0500 Heart rate 80 /min Adelaidamonse Sousaholz PHYSICAL MEDICINE TEACHER Work Phone: [facility] 05-12-2024 10:04-0500 Respiratory rate 20 /min Adelaidamonse Sousaholz PHYSICAL MEDICINE TEACHER Work Phone: [facility] 05-12-2024 10:04-0500 SaO2% (BldA) [Mass fraction] 98 % Adelaida Merryholz PHYSICAL MEDICINE TEACHER Work Phone: [facility] 05-12-2024 10:04-0500 Systolic blood pressure 118 mm[Hg] Adelaida Sousaholz PHYSICAL MEDICINE TEACHER Work Phone: [facility] 03-16-2024 09:53-0500 Body height 162.6 cm Adelaida Iglesiasz PHYSICAL MEDICINE TEACHER Work Phone: [facility] 03-16-2024 09:53-0500 Body mass index (BMI) [Ratio] 48.41 kg/m2 Adelaida Merryholz PHYSICAL MEDICINE TEACHER Work Phone: [facility] 03-16-2024 09:53-0500 Body temperature 98.01 [degF] Adelaida Sousaholz PHYSICAL MEDICINE TEACHER Work Phone: [facility] 03-16-2024 09:53-0500 Body weight 127.91 kg Adelaidamonse Sousaholz PHYSICAL MEDICINE TEACHER Work Phone: [facility] 03-16-2024 09:53-0500 Diastolic blood pressure 80 mm[Hg] Adelaida Sousaholz PHYSICAL MEDICINE TEACHER Work Phone: [facility] 03-16-2024 09:53-0500 Heart rate 79 /min Adelaida Iglesiasz PHYSICAL MEDICINE TEACHER Work Phone: [facility] 03-16-2024 09:53-0500 Respiratory rate 18 /min Adelaida Iglesiasz PHYSICAL MEDICINE TEACHER Work Phone: [facility] 03-16-2024 09:53-0500 SaO2% (BldA) [Mass fraction] 98 % Adelaida Sousaholz PHYSICAL MEDICINE TEACHER Work Phone: [facility] 03-16-2024 09:53-0500 Systolic blood pressure 120 mm[Hg] Adelaida Sousaholz PHYSICAL MEDICINE TEACHER Work Phone: [facility] 03-10-2024 15:20-0500 Body height 162.6 cm Rachel Mitchell PA Work Phone: [facility] 03-10-2024 15:20-0500 Body mass index (BMI) [Ratio] 48.41 kg/m2 Rachel Mitchell PA Work Phone: [facility] 03-10-2024 15:20-0500 Body weight 127.91 kg Rachel Mitchell PA Work Phone: [facility] 03-10-2024 15:20-0500 Diastolic blood pressure 68 mm[Hg] Rachel Mitchell PA Work Phone: [facility] 03-10-2024 15:20-0500 Heart rate 74 /min Rachel Mitchell PA Work Phone: [facility] 03-10-2024 15:20-0500 Respiratory rate 16 /min Rachel Mitchell PA Work Phone: [facility] 03-10-2024 15:20-0500 SaO2% (BldA) [Mass fraction] 98 % Rachel Mitchell PA Work Phone: [facility] 03-10-2024 15:20-0500 Systolic blood pressure 102 mm[Hg] Rachel Mitchell PA Work Phone: [facility] 03-01-2024 12:48-0500 Body height 162.6 cm Juany Leggett PA Work Phone: [facility] 03-01-2024 12:48-0500 Body mass index (BMI) [Ratio] 48.92 kg/m2 Juany Lowe PA Work Phone: [facility] 03-01-2024 12:48-0500 Body weight 129.28 kg Juany Lowe PA Work Phone: [facility] 03-01-2024 12:48-0500 Diastolic blood pressure 88 mm[Hg] Juany Lowe PA Work Phone: [facility] 03-01-2024 12:48-0500 Systolic blood pressure 140 mm[Hg] Juany Lowe PA Work Phone: [facility] 02-16-2024 11:18-0500 Body height 162.6 cm Adelaida Kelsiez PHYSICAL MEDICINE TEACHER Work Phone: [facility] 02-16-2024 11:18-0500 Body mass index (BMI) [Ratio] 50.77 kg/m2 Adelaida Kelsiez PHYSICAL MEDICINE TEACHER Work Phone: [facility] 02-16-2024 11:18-0500 Body temperature 98.49 [degF] Adelaida Sheyla PHYSICAL MEDICINE TEACHER Work Phone: [facility] 02-16-2024 11:18-0500 Body weight 134.17 kg Adelaida Kelsiez PHYSICAL MEDICINE TEACHER Work Phone: [facility] 02-16-2024 11:18-0500 Diastolic blood pressure 82 mm[Hg] Adelaida Kelsiez PHYSICAL MEDICINE TEACHER Work Phone: [facility] 02-16-2024 11:18-0500 Heart rate 69 /min Adelaida Kelsiez PHYSICAL MEDICINE TEACHER Work Phone: [facility] 02-16-2024 11:18-0500 Respiratory rate 20 /min Adelaida Kelsiez PHYSICAL MEDICINE TEACHER Work Phone: [facility] 02-16-2024 11:18-0500 SaO2% (BldA) [Mass fraction] 98 % Adelaida Merryholz PHYSICAL MEDICINE TEACHER Work Phone: [facility] 02-16-2024 11:18-0500 Systolic blood pressure 122 mm[Hg] Adelaida Aichholz PHYSICAL MEDICINE TEACHER Work Phone: [facility] 01-28-2024 13:46-0400 Body height 162.6 cm Adelaida Aichholz PHYSICAL MEDICINE TEACHER Work Phone: [facility] 01-28-2024 13:46-0400 Body mass index (BMI) [Ratio] 48.99 kg/m2 Adelaida Aichholz PHYSICAL MEDICINE TEACHER Work Phone: [facility] 01-28-2024 13:46-0400 Body temperature 98.71 [degF] Adelaida Aichholz PHYSICAL MEDICINE TEACHER Work Phone: [facility] 01-28-2024 13:46-0400 Body weight 129.46 kg Adelaida Yinghholz PHYSICAL MEDICINE TEACHER Work Phone: [facility] 01-28-2024 13:46-0400 Diastolic blood pressure 78 mm[Hg] Adelaida Aichholz PHYSICAL MEDICINE TEACHER Work Phone: [facility] 01-28-2024 13:46-0400 Heart rate 81 /min Adelaida Aichholz PHYSICAL MEDICINE TEACHER Work Phone: [facility] 01-28-2024 13:46-0400 Respiratory rate 18 /min Adelaida Aichholz PHYSICAL MEDICINE TEACHER Work Phone: [facility] 01-28-2024 13:46-0400 SaO2% (BldA) [Mass fraction] 99 % Adelaida Aichholz PHYSICAL MEDICINE TEACHER Work Phone: [facility] 01-28-2024 13:46-0400 Systolic blood pressure 110 mm[Hg] Adelaida Aichholz PHYSICAL MEDICINE TEACHER Work Phone: [facility] 01-04-2024 09:39-0400 Body height 162.6 cm Adelaida Aichholz PHYSICAL MEDICINE TEACHER Work Phone: [facility] 01-04-2024 09:39-0400 Body mass index (BMI) [Ratio] 48.75 kg/m2 Adelaidamonse Iglesiasz PHYSICAL MEDICINE TEACHER Work Phone: [facility] 01-04-2024 09:39-0400 Body temperature 97.81 [degF] Adelaida Iglesiasz PHYSICAL MEDICINE TEACHER Work Phone: [facility] 01-04-2024 09:39-0400 Body weight 128.82 kg Adelaidamonse Sousaholz PHYSICAL MEDICINE TEACHER Work Phone: [facility] 01-04-2024 09:39-0400 Diastolic blood pressure 78 mm[Hg] Adelaida Merryholz PHYSICAL MEDICINE TEACHER Work Phone: [facility] 01-04-2024 09:39-0400 Heart rate 67 /min Adelaidamonse Iglesiasz PHYSICAL MEDICINE TEACHER Work Phone: [facility] 01-04-2024 09:39-0400 Respiratory rate 19 /min Adelaidamonse Iglesiasz PHYSICAL MEDICINE TEACHER Work Phone: [facility] 01-04-2024 09:39-0400 SaO2% (BldA) [Mass fraction] 99 % Adelaida Iglesiasz PHYSICAL MEDICINE TEACHER Work Phone: [facility] 01-04-2024 09:39-0400 Systolic blood pressure 116 mm[Hg] Adelaida Sousakushz PHYSICAL MEDICINE TEACHER Work Phone: [facility] 12-09-2023 10:14-0400 Body height 162.6 cm Juany Escalanter PHYSICAL MEDICINE TEACHER Work Phone: [facility] 12-09-2023 10:14-0400 Body mass index (BMI) [Ratio] 48.92 kg/m2 Juany Gillmor PHYSICAL MEDICINE TEACHER Work Phone: [facility] 12-09-2023 10:14-0400 Body weight 129.28 kg Juany Gillmor PHYSICAL MEDICINE TEACHER Work Phone: [facility] 12-09-2023 10:14-0400 Diastolic blood pressure 78 mm[Hg] Juany Caballero PHYSICAL MEDICINE TEACHER Work Phone: [facility] 12-09-2023 10:14-0400 SaO2% (BldA) [Mass fraction] 97 % Juany Caballero PHYSICAL MEDICINE TEACHER Work Phone: [facility] 12-09-2023 10:14-0400 Systolic blood pressure 122 mm[Hg] Juany Caballero PHYSICAL MEDICINE TEACHER Work Phone: [facility] 12-08-2023 15:24-0400 Body height 162.6 cm Sonam Brown PHYSICAL MEDICINE TEACHER Work Phone: [facility] 12-08-2023 15:24-0400 Body mass index (BMI) [Ratio] 48.92 kg/m2 Sonam Franzgel PHYSICAL MEDICINE TEACHER Work Phone: [facility] 12-08-2023 15:24-0400 Body weight 129.28 kg Sonam Franzgel PHYSICAL MEDICINE TEACHER Work Phone: [facility] 12-08-2023 15:24-0400 Diastolic blood pressure 77 mm[Hg] Sonam Franzgel PHYSICAL MEDICINE TEACHER Work Phone: [facility] 12-08-2023 15:24-0400 Heart rate 72 /min Sonam Franzgel PHYSICAL MEDICINE TEACHER Work Phone: [facility] 12-08-2023 15:24-0400 Systolic blood pressure 134 mm[Hg] Sonam Allynagel PHYSICAL MEDICINE TEACHER Work Phone: [facility] 05-18-2023 16:30-0500 Body height 162.6 cm Adelaida Carrion PHYSICAL MEDICINE TEACHER Work Phone: [facility] 05-18-2023 16:30-0500 Body mass index (BMI) [Ratio] 47.89 kg/m2 Adelaida Carrion PHYSICAL MEDICINE TEACHER Work Phone: [facility] 05-18-2023 16:30-0500 Body temperature 97.3 [degF] Adelaida Carrion PHYSICAL MEDICINE TEACHER Work Phone: [facility] 05-18-2023 16:30-0500 Body weight 126.55 kg Adelaida Aichholz PHYSICAL MEDICINE TEACHER Work Phone: [facility] 05-18-2023 16:30-0500 Diastolic blood pressure 80 mm[Hg] Adelaida Aichholz PHYSICAL MEDICINE TEACHER Work Phone: [facility] 05-18-2023 16:30-0500 Heart rate 76 /min Adelaida Aichholz PHYSICAL MEDICINE TEACHER Work Phone: [facility] 05-18-2023 16:30-0500 Respiratory rate 19 /min Adelaida Aichholz PHYSICAL MEDICINE TEACHER Work Phone: [facility] [facility] 05-18-2023 16:30-0500 SaO2% (BldA) [Mass fraction] 97 % Adelaida Aichholz PHYSICAL MEDICINE TEACHER Work Phone: [facility] 05-18-2023 16:30-0500 Systolic blood pressure 134 mm[Hg] Adelaida Aichholz PHYSICAL MEDICINE TEACHER Work Phone: [facility] 03-23-2023 12:10-0500 Diastolic blood pressure 98 mm[Hg] Adelaida Aichholz Work Phone: [facility] 03-23-2023 12:10-0500 Heart rate 76 /min Adelaida Aichholz Work Phone: [facility] 03-23-2023 12:10-0500 Respiratory rate 18 /min Adelaida Aichholz Work Phone: [facility] 03-23-2023 12:10-0500 SaO2% (BldA) [Mass fraction] 99 % Adelaida Aichholz Work Phone: [facility] 03-23-2023 12:10-0500 Systolic blood pressure 162 mm[Hg] Adelaida Aichholz Work Phone: [facility] 03-23-2023 10:53-0500 Body height 162.56 cm Adelaida Aichholz Work Phone: [facility] 12-18-2023 10:53-0500 Body weight 125.64 kg Adelaida Aichholz Work Phone: [facility] 12-19-2022 14:55-0400 Body height 162.56 cm Rosemary Kirkland Other [email or web address] Other 12-19-2022 14:55-0400 Body mass index (BMI) [Ratio] 47.85 kg/m2 Rosemary Kirkland Other [email or web address] Other 12-19-2022 14:55-0400 Body temperature 97.8 [degF] Rosemary Kirkland Other [email or web address] Other 12-19-2022 14:55-0400 Body weight 126.46 kg Rosemary Kirkland Other [email or web address] Other 12-19-2022 14:55-0400 Respiratory rate 20 /min Rosemary Kirkland Other [email or web address] Other 12-19-2022 14:55-0400 SaO2% (BldA) [Mass fraction] 95 % Rosemary Kirkland Other [email or web address] Other 11-20-2022 13:12-0400 Body temperature 97.7 [degF] Adelaida Aichholz Work Phone: [facility] 11-20-2022 13:12-0400 SaO2% (BldA) [Mass fraction] 96 % Adelaida Aichholz Work Phone: [facility] 11-20-2022 07:44-0400 Diastolic blood pressure 90 mm[Hg] Adelaida Aichholz Work Phone: [facility] 11-20-2022 07:44-0400 Heart rate 103 /min Adelaida Aichholz Work Phone: [facility] 11-20-2022 07:44-0400 Systolic blood pressure 152 mm[Hg] Adelaida Sheyla Work Phone: [facility] 11-19-2022 20:00-0400 Respiratory rate 18 /min Adelaida Sheyla Work Phone: [facility] 11-18-2022 15:18-0400 Body height 162.56 cm Adelaida Sheyla Work Phone: [facility] 11-17-2022 09:00-0400 Body weight 122.92 kg Adelaida Sheyla Work Phone: [facility] Encounters Encounter Date Encounter Type Care Provider Facility Start: 08-16-2024 End: 08-16-2024 Bamboo flowsheet Adelaida Carrion PHYSICAL MEDICINE TEACHER Work Phone: [facility] Start: 08-16-2024 End: 08-16-2024 Bamboo flowsheet Adelaida Carrion PHYSICAL MEDICINE TEACHER Work Phone: [facility] Start: 08-16-2024 End: 08-16-2024 Office outpatient visit 15 minutes Adelaida Carrion PHYSICAL MEDICINE TEACHER Work Phone: [facility] Comment on above: Primary hypertension (CMS/HCC) (Primary Dx); Bronchitis; Bilateral lower extremity edema; Morbid (severe) obesity due to excess calories (CMS/HCC); Pre-diabetes; Allergic rhinitis, unspecified seasonality, unspecified trigger; Encounter for screening mammogram for malignant neoplasm of breast; Former cigarette smoker Start: 08-16-2024 End: 08-16-2024 ambulatory ADELAIDA CARRION Not Available Start: 07-27-2024 End: 07-27-2024 Bamboo flowsheet Adelaida Carrion PHYSICAL MEDICINE TEACHER Work Phone: [facility] Start: 07-27-2024 End: 07-27-2024 Bamboo flowsheet Adelaida Carrion PHYSICAL MEDICINE TEACHER Work Phone: [facility] Start: 07-27-2024 End: 07-27-2024 Office outpatient visit 15 minutes Adelaida Carrion PHYSICAL MEDICINE TEACHER Work Phone: [facility] Comment on above: Primary hypertension (CMS/HCC) (Primary Dx); Morbid (severe) obesity due to excess calories (CMS/HCC); Essential (primary) hypertension (CMS/HCC); Allergic rhinitis, unspecified; Gastro-esophageal reflux disease without esophagitis; Bilateral lower extremity edema; Bronchitis Start: 07-27-2024 End: 07-27-2024 ambulatory ADELAIDA KELSIEZ Not Available Start: 07-26-2024 End: 07-26-2024 Bamboo flowsheet Juany Lowe PA Work Phone: [facility] Start: 07-26-2024 End: 07-26-2024 Bamboo flowsheet Juany Lowe PA Work Phone: [facility] Start: 07-26-2024 End: 07-26-2024 Office outpatient visit 25 minutes Juany Lowe PA Work Phone: [facility] Comment on above: OSMANY (obstructive sle ep apnea) (Primary Dx); Restless leg; 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CMS/HCC); Concentration deficit Start: 07-26-2024 End: 07-26-2024 ambulatory JUANY LOWE Not Available Start: 07-21-2024 ambulatory Eduardo Monk Facility:[facility] Start: 07-18-2024 End: 07-18-2024 ambulatory Syeda Mancuso MD Facility: [facility] Start: 06-14-2024 End: 06-14-2024 Refill Adelaida Merryholz PHYSICAL MEDICINE TEACHER Work Phone: [facility] Comment on above: URI, acute (Primary Dx) Start: 06-07-2024 End: 06-07-2024 Refill Juany Lowe PA Work Phone: [facility] Comment on above: Restless leg Start: 05-24-2024 End: 05-24-2024 Bamboo flowsheet Juany Lowe PA Work Phone: [facility] [place] Start: 05-24-2024 End: 05-24-2024 Bamboo flowsheet Juany REDDY Work Phone: [facility] Start: 05-24-2024 End: 05-24-2024 Office outpatient visit 25 minutes Juany REDDY Work Phone: [facility] Comment on above: Cerebrovascular acci dent (CVA) [...] 05-12-2024 End: 05-12-2024 Bamboo flowsheet Adelaida Carrion PHYSICAL MEDICINE TEACHER Work Phone: [facility] Start: 05-12-2024 End: 05-12-2024 Bamboo flowsheet Adelaida Carrion PHYSICAL MEDICINE TEACHER Work Phone: [facility] Start: 05-12-2024 End: 05-12-2024 Office outpatient visit 25 minutes Adelaida Carrion PHYSICAL MEDICINE TEACHER Work Phone: [facility] Comment [...] edema Start: 05-12-2024 End: 05-12-2024 ambulatory ADELAIDA AICHHOLZ Not Available Start: 05-09-2024 End: 05-09-2024 ambulatory Syeda Mancuso MD Facility:[facility] Start: 04-12-2024 End: 04-12-2024 Refill [facility] REDDY [facility] Comment on above: Transient alteration of awareness (Primary Dx); Restless leg Start: 04-07-2024 End: 04-07-2024 Patient encounter procedure David Foster PhD Work Phone: [facility] Comment on above: Metabolic [...] 03-16-2024 End: 03-16-2024 Bamboo flowsheet Adelaida Carrion PHYSICAL MEDICINE TEACHER Work Phone: [facility] Start: 03-16-2024 End: 03-16-2024 Bamboo flowsheet Adelaida Sheyla PHYSICAL MEDICINE TEACHER Work Phone: [facility] Start: 03-16-2024 End: 03-16-2024 Office outpatient visit 25 minutes Adelaida Sheyla PHYSICAL MEDICINE TEACHER Work Phone: [facility] Comment on above: Metabolic encephalop athy (Primary Dx); OSMANY (obstructive sleep apnea); Morbid obesity (CMS/HCC); Bilateral lower extremity edema; Tobacco dependence; Bipolar disorder with severe depression (CMS/HCC); At risk for polypharmacy; Anxiety; Primary hypertension (CMS/HCC); Right bundle branch block (RBBB) determined by electrocardiography Start: 03-16-2024 End: 03-16-2024 ambulatory ADELAIDA KELSIEZ Not Available Start: 03-15-2024 End: 03-16-2024 Telephone encounter David Norman MA [facility] Start: 03-14-2024 End: 03-14-2024 Bamboo Fly6heet David Foster PhD Work Phone: [facility] Start: 03-14-2024 End: 03-14-2024 Bamboo flowsheet David Foster PhD Work Phone: [facility] Start: 03-14-2024 End: 03-14-2024 ambulatory DAVID FOTSER Not Available Start: 03-14-2024 End: 03-14-2024 Patient encounter procedure David Foster PhD Work Phone: [facility] Comment on above: Altered mental statu s, unspecified altered mental status type (Primary Dx); Memory change; Concentration deficit; 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 (CMS/HCC); PTSD (post-traumatic stress disorder) (CMS/HCC); Bipolar affective disorder, remission status unspecified (CMS/HCC); Family history of dementia Start: 03-10-2024 End: 03-10-2024 Office outpatient visit 25 minutes Rachel REDDY Work Phone: [facility] Comment on above: Altered mental statu s, unspecified altered mental status type (Primary Dx); Restless leg; 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CMS/HCC); OSMANY (obstructive sleep apnea) Start: 03-10-2024 End: 03-10-2024 ambulatory RACHEL MITCHELL Not Available Start: 03-03-2024 End: 03-07-2024 Evaluation and management of inpatient Adelaida Carrion Facility:[facility] Start: 03-02-2024 End: 03-04-2024 Clinisync Result Encounter Generic External Data Provider [facility] External Department Unsolicited Start: 03-02-2024 End: 03-04-2024 Clinisync Result Encounter Generic External Data Provider [facility] External Department Unsolicited Start: 03-02-2024 End: 03-02-2024 Refill Adelaida Carrion PHYSICAL MEDICINE TEACHER Work Phone: [facility] Comment on above: Yeast infection of t he skin Start: 03-01-2024 End: 03-01-2024 ambulatory JUANY LEGGETT Not Available Start: 03-01-2024 End: 03-01-2024 Office outpatient visit 25 minutes Juany REDDY Work Phone: [facility] [place] [facility] Comment on above: Metabolic encephalop athy (Primary Dx); OSMANY (obstructive sleep apnea); Restless leg; 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 (CMS/HCC); Degeneration of intervertebral disc of lumbar region with discogenic back pain and lower extremity pain; Memory change Start: 02-28-2024 End: 02-29-2024 Refill Adelaida Carrion NP Work Phone: [facility] Comment on above: Allergic rhinitis, u nspecified Start: 02-24-2024 End: 02-24-2024 Refill Adelaida Carrion NP Work Phone: [facility] Comment on above: Essential (primary) hypertension (CMS/HCC); Allergic rhinitis, unspecified Start: 02-16-2024 End: 02-16-2024 Bamboo flowsheet Adelaida Carrion NP Work Phone: [facility] Start: 02-16-2024 End: 02-23-2024 Clinisync Result Encounter Adelaida Carrion NP Work Phone: [facility] External Department Unsolicited Start: 02-16-2024 End: 02-23-2024 Clinisync Result Encounter Adelaida Carrion NP Work Phone: [facility] Unsolicited Start: 02-16-2024 End: 02-16-2024 Patient encounter procedure Adelaida Carrion NP Work Phone: [facility] Start: 02-16-2024 End: 02-16-2024 Periodic preventive med est patient 40-64yrs Adelaida Carrion NP Work Phone: [facility] Comment on above: Well woman exam with routine gynecological exam (Primary Dx); Morbid obesity (CMS/HCC) Start: 02-16-2024 End: 02-16-2024 ambulatory ADELAIDA SHEYLA Not Available Start: 02-04-2024 End: 02-04-2024 Refill Sonam Brown PHYSICAL MEDICINE TEACHER Work Phone: [facility] [place] [facility] Comment on above: Restless leg Start: 01-28-2024 End: 01-28-2024 Bamboo flowsheet Adelaida Carrion PHYSICAL MEDICINE TEACHER Work Phone: [facility] Start: 01-28-2024 End: 01-28-2024 Bamboo flowsheet Adelaida Carrion PHYSICAL MEDICINE TEACHER Work Phone: [facility] Start: 01-28-2024 End: 01-28-2024 Office outpatient visit 15 minutes Adelaida Carrion PHYSICAL MEDICINE TEACHER Work Phone: [facility] Comment on above: Acute cystitis witho ut hematuria (Primary Dx); Tobacco dependence; Needs flu shot; Morbid obesity ([facility]/HCC) Start: 01-28-2024 End: 01-28-2024 ambulatory ADELAIDA AICMarquesHOLZ Not Available Start: 01-25-2024 End: 01-25-2024 ambulatory Syeda Mancuso MD Facility:[facility] Start: 01-21-2024 End: 01-25-2024 Clinisync Result Encounter Generic External Data Provider [facility] External Department Unsolicited Start: 01-21-2024 End: 01-25-2024 Clinisync Result Encounter Generic External Data Provider [facility] External Department Unsolicited Start: 01-05-2024 End: 01-05-2024 Clinisync Result Encounter Adelaida Carrion PHYSICAL MEDICINE TEACHER Work Phone: [facility] Unsolicited Start: 01-05-2024 End: 01-05-2024 Clinisync Result Encounter Adelaida Sheyla PHYSICAL MEDICINE TEACHER Work Phone: [facility] Unsolicited Start: 01-04-2024 End: 01-04-2024 Bamboo flowsheet Adelaida Carrion PHYSICAL MEDICINE TEACHER Work Phone: [facility] Start: 01-04-2024 End: 01-04-2024 Bamboo flowsheet Adelaida Yingmarquesrhonda PHYSICAL MEDICINE TEACHER Work Phone: [facility] Start: 01-04-2024 End: 01-04-2024 Office outpatient visit 25 minutes Adelaida Yingmarquesrhonda PHYSICAL MEDICINE TEACHER Work Phone: [facility] Comment on above: Bilateral lower extr emity edema (Primary Dx); Essential (primary) hypertension (CMS/HCC); Allergic rhinitis, unspecified; OSMANY (obstructive sleep apnea); Primary hypertension (CMS/HCC); Morbid obesity (CMS/HCC) Start: 01-04-2024 End: 01-04-2024 ambulatory ADELAIDA YINGMarquesRHONDA Not Available Start: 12-30-2023 End: 12-30-2023 Refill Adelaida Sheyla PHYSICAL MEDICINE TEACHER Work Phone: [facility] Comment on above: Lower extremity elis a Start: 12-09-2023 End: 12-09-2023 Office outpatient visit 25 minutes Juany Caballero PHYSICAL MEDICINE TEACHER Work Phone: [facility] Comment on above: OSMANY (obstructive sle ep apnea) (Primary Dx); Restless leg Start: 12-09-2023 End: 12-09-2023 ambulatory JUANY CABALLERO Not Available Start: 12-08-2023 End: 12-08-2023 ambulatory SONAM C ALLYNAGEL Not Available Start: 12-08-2023 End: 12-08-2023 Office outpatient visit 25 minutes Sonam C Maria Mgel PHYSICAL MEDICINE TEACHER Work Phone: [facility] [place] [facility] Comment on above: 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CMS /HCC) (Primary Dx); Restless leg; Metabolic encephalopathy Start: 12-08-2023 End: 12-08-2023 Bamboo flowsheet Sonam C Allynagel PHYSICAL MEDICINE TEACHER Work Phone: [facility] [place] [facility] Start: 12-08-2023 End: 12-08-2023 Bamboo flowsheet Sonam C Allynagel PHYSICAL MEDICINE TEACHER Work Phone: [facility] Start: 11-27-2023 End: 11-27-2023 Refill Adelaidamonse Carrion PHYSICAL MEDICINE TEACHER Work Phone: [facility] Comment on above: Yeast infection of t he skin (Primary Dx) Start: 10-21-2023 End: 10-21-2023 ambulatory ADELAIDA AICHHOLZ Not Available Start: 10-14-2023 End: 10-14-2023 ambulatory SONAM BROWN Not Available Start: 10-05-2023 End: 10-05-2023 ambulatory ADELAIDA AICHHOLZ Not Available Start: 09-21-2023 End: 09-21-2023 ambulatory ADELAIDA AICHHOLZ Not Available Start: 05-21-2023 Refill Adelaida Merryholz PHYSICAL MEDICINE TEACHER Work Phone: [facility] Comment on above: Acute cystitis with hematuria (Primary Dx) Start: 05-18-2023 End: 05-18-2023 Office outpatient visit 25 minutes Adelaida Carrion PHYSICAL MEDICINE TEACHER Work Phone: [facility] Comment on above: Encounter for annual wellness visit (AWV) in Medicare patient (Primary Dx); OSMANY (obstructive sleep apnea); Chronic pain disorder; Gastroesophageal reflux disease, unspecified whether esophagitis present; Overactive bladder; Lower extremity edema; Pre-diabetes; Morbid obesity (CMS/HCC); Yeast infection of the skin; Tobacco dependence; Mood disorder (CMS/[facility]); Primary hypertension ([facility]/HCC); Left hip pain; Open wound of anterior abdominal wall, initial encounter Start: 05-18-2023 Bamboo flowsheet Adelaida Carrion PHYSICAL MEDICINE TEACHER Work Phone: [facility] Start: 05-18-2023 Bamboo flowsheet Adelaida Carrion PHYSICAL MEDICINE TEACHER Work Phone: [facility] Start: 05-18-2023 End: 05-18-2023 Patient encounter procedure Adelaida Carrion PHYSICAL MEDICINE TEACHER Work Phone: [facility] Start: 03-23-2023 End: 03-23-2023 Admission to same day surgery center Adelaida Carrion Work Phone: [facility] Work Phone: Start: 03-23-2023 End: 03-23-2023 ambulatory Adelaida Carrion Work Phone: [facility] Work Phone: Start: 02-12-2023 End: 02-12-2023 ambulatory Jace Graham Other [email or web address] Other Start: 02-12-2023 Telephone encounter Jace CORADO G Environmental Health Technologist Start: 12-19-2022 End: 12-19-2022 ambulatory Rosemary Kirkland Other [facility] [employer] Other Start: 12-19-2022 Office outpatient ne w 10 minutes Rosemary Kirkland [facility] Miguel Start: 11-17-2022 End: 11-20-2022 Evaluation and management of inpatient Adelaida Carrion Work Phone: [facility] [place] [address] Work Phone: Start: 09-04-2022 ambulatory ARIAN Banegas Facili ty:H1 Start: 08-26-2022 ambulatory NARENDRANATH LAKSHMIPATHY . Facility:[facility] Start: 08-08-2022 End: 08-09-2022 ambulatory OTA ADELAIDA CARRION Facility:[facility] Start: 07-25-2022 End: 07-26-2022 ambulatory OTA ADELAIDAMonse CARRION Facility:[facility] Start: 07-15-2022 End: 07-15-2022 ambulatory NARENDRANATH LAKSHMIPATHY . Facility:[facility] Start: 07-11-2022 ambulatory NARENDRANATH LAKSHMIPATHY . Facility:[facility] Start: 06-26-2022 End: 06-27-[address] FINA NIXON . Facility:[facility] Start: 06-11-2022 ambulatory OTA ADELAIDA CARRION Facil ity:H1 Start: 05-21-2022 End: 06-11-2022 ambulatory OTA ADELAIDA SHEYLA Facility:[facility] Start: 05-08-2022 End: 05-09-2022 ambulatory LIVIER CARRION Facility:[facility] Start: 04-28-2022 End: 04-28-2022 ambulatory LIVIER SOUSAKUSHNena Facility:[facility]1 Start: 04-03-2022 End: 04-04-[address] FINA NIXNO . Facility:[facility] Start: 03-19-2022 End: 03-20-2022 ambulatory LIVIER WITT YINGMarquesKUSHNena Facility:[facility]1 Start: 02-20-2022 End: 02-20-2022 ambulatory GILMER NEVES Facility:[facility]1 Start: 01-10-2022 End: 02-12-2022 ambulatory [facility]GETTE Ca [facility] Facility:[facility] Start: 01-02-2022 End: 01-03-[address] FINA NIXON . Facility:[facility]1 Start: 01-01-2022 End: 01-02-2022 ambulatory [facility] L[facility] Facility:[facility] Start: 12-16-2021 [...] Patient encounter procedure SUKI ESCALANTE Facility:[facility] Procedures Date Procedure Procedure Detail Performing Clinician Start: 08-16-2024 Hemoglobin glycosyla luis antonio a1c Adelaida Sheyla PHYSICAL MEDICINE TEACHER Work Phone: Start: 03-02-2024 BLOOD CULTURE 1 Generic External Data Provider Start: 02-16-2024 IGP,APTIMA HPV,AGE GDLN Adelaidamonse Carrion PHYSICAL MEDICINE TEACHER Work Phone: Start: 01-28-2024 Urnls dip stick/tabl et rgnt non-auto w/o micrscp Adelaida Aichholz PHYSICAL MEDICINE TEACHER Work Phone: Start: 01-21-2024 MHPT CULT,URINE Generic External Data Provider Start: 01-05-2024 ALL BASIC METABOLIC PANEL Adelaida Carrion PHYSICAL MEDICINE TEACHER Work Phone: Start: 09-18-2023 Mammography Adelaida Jayden ramos PHYSICAL MEDICINE TEACHER Work Phone: Start: 03-23-2023 Screening colonoscopy L oneal Sheyla Work Phone: Start: 03-23-2023 Colonoscopy Adelaida Jayden ramos PHYSICAL MEDICINE TEACHER Work Phone: Start: 09-15-2022 Mammography Adelaida Jayden ramos PHYSICAL MEDICINE TEACHER Work Phone: Start: 08-28-2022 Microscopic observat ion [Identifier] in Cervix by Cyto stain Adelaida Carrion PHYSICAL MEDICINE TEACHER Work Phone: Start: 07-02-2018 ANESTH KNEE AREA SURGERY CHAPARRITA HENDRICKS Start: 07-02-2018 REMOVAL OF SUPPORT IMPLANT SUKI EBRAHEIM Start: 07-02-2018 TREAT KNEECAP FRACTURE SUKI EBRAHEIM Plan of Treatment Date Care Activity Detail Author Start: 03-23-2033 Screening for malign ant neoplasm of colon [facility] Start: 08-28-2025 Screening for malign ant neoplasm of cervix [facility] Start: 02-15-2025 Medicare Annual Well ness (AWV) Medicare Annual Wellness (AWV) [facility] Start: 11-14-2024 End: 11-14-2024 Patient encounter procedure 11/14/2024 9:40 AM EDT Office Visit [facility] [address] [place] [address] Adelaida Carrion NP [address] [place] [address] [facility] Start: 09-22-2024 End: 09-22-2024 Patient encounter procedure 09/22/2024 11:00 AM EDT Office Visit [facility] [address] [place] [address] Rachel Mitchell PA [address] [place] [address] [facility] Start: 09-17-2024 Screening for malign ant neoplasm of breast Mammogram [facility] Start: 08-16-2024 End: 08-16-2025 CT Chest for screening WO contrast CT lung screening low dose Imaging Routine Former cigarette smoker Expected: 08/16/2024 (Approximate), Expires: 08/16/2025 [facility] Comment on above: Expected: 08/16/2024 (Approximate), Expires: 08/16/2025 Start: 08-16-2024 End: 10-16-2025 MG Breast - bilateral Screening Bilateral screening mammogram Imaging Routine Encounter for screening mammogram for malignant neoplasm of breast Expected: 08/16/2024 (Approximate), Expires: 10/16/2025 [facility] Work Phone: Comment on above: Expected: 08/16/2024 (Approximate), Expires: 10/16/2025 Start: 08-16-2024 End: 08-16-2024 Patient encounter procedure [facility] Comment on above: Bronchitis (Primary Dx); Primary hypertension (CMS/HCC); Bilateral lower extremity edema; Morbid (severe) obesity due to excess calories (CMS/HCC); Pre-diabetes Start: 08-11-2024 End: 08-11-2024 Patient encounter procedure 08/11/2024 10:30 AM EDT Office Visit [facility] [address] [place] [id number] Adelaida Carrion NP [address] [place] [phone] [facility] Start: 07-27-2024 End: 07-27-2024 Patient encounter procedure 07/27/2024 11:30 AM EDT Office Visit [facility] [address] [place] [address] Adelaida Carrion NP [address] [place] [address] Primary hypertension (CMS/HCC) (Primary Dx); Morbid (severe) obesity due to excess calories (CMS/HCC) [facility] Comment on above: Primary hypertension (CMS/HCC) (Primary Dx); Morbid (severe) obesity due to excess calories (CMS/HCC) Start: 07-26-2024 End: 07-26-2024 Patient encounter procedure [facility] Comment on above: Arrived Start: 06-22-2024 End: 06-22-2024 Patient encounter procedure 06/22/2024 11:20 AM EDT [facility] [address] [place] [phone] Juany Leggett PA [address] [place], [place] [id number] [facility] Start: 06-15-2024 End: 06-15-2024 Patient encounter procedure 06/15/2024 9:20 AM EDT Office Visit [facility] [address] [place] [address] Adelaida Carrion, BRIANA [address] [place] [address] [facility] Start: 05-24-2024 End: 05-24-2024 Patient encounter procedure [facility] [place] [facility] Comment on above: Arrived Start: 05-18-2024 Medicare Annual Well ness (AWV) Medicare Annual Wellness (AWV) [facility] Start: 05-12-2024 End: 05-12-2024 [facility] Comment on above: Primary hypertension (CMS/HCC) (Primary Dx); Chronic kidney disease, stage 3a (HCC) (CMS/HCC); Morbid (severe) obesity due to excess calories (CMS/HCC); Body mass index (BMI) 45.0-49.9, adult (CMS/HCC); OSMANY (obstructive sleep apnea); Hemiparesis, right (CMS/HCC); Gastroesophageal reflux disease, unspecified whether esophagitis present; Metabolic encephalopathy Start: 04-07-2024 End: 04-07-2024 Patient encounter procedure 04/07/2024 12:30 PM EST Office Visit [facility] [address] [phone] [facility] Start: 04-04-2024 End: 04-04-2024 Patient encounter procedure 04/04/2024 1:20 PM EST Office Visit [facility] [address] [place] [address] Adelaida Carrion NP [address] [place] [address] [facility] Start: 03-22-2024 End: 03-22-2024 Clinical Support 03/22/2024 10:00 AM EST Clinical Support [facility] [address] [place] [phone] [facility] Start: 03-16-2024 End: 03-16-2024 Patient encounter procedure [facility] Comment on above: Metabolic encephalop athy (Primary Dx); OSMANY (obstructive sleep apnea); Morbid obesity (CMS/HCC); Bilateral lower extremity edema; Tobacco dependence; Bipolar disorder with severe depression (CMS/HCC); At risk for polypharmacy; Anxiety Start: 03-14-2024 End: 03-14-2024 Patient encounter procedure 03/14/2024 10:00 AM EST Office Visit [facility] [facility] [address] [phone] David Foster, PhD [address] [facility], [place] [id number] [facility] Start: 03-11-2024 End: 03-11-2025 EEG 2 Hour Routine EEG 2 Hour Routine Neurology Routine Altered mental status, unspecified altered mental status type Expected: 03/11/2024 (Approximate), Expires: 03/11/2025 [facility] Work Phone: Comment on above: Expected: 03/11/2024 (Approximate), Expires: 03/11/2025 Start: 03-10-2024 End: 03-10-2024 Patient encounter procedure 03/10/2024 3:40 PM EST Office Visit [facility] [address] [place] [address] Rachel Mitchell PA [address] [place], [place] [id number] [facility] Start: 03-01-2024 End: 03-01-2024 Patient encounter procedure 03/01/2024 12:00 PM EST Office Visit [facility] [place] [facility] [address] [place] [phone] Juany Leggett PA [address] [place] [address] [facility] [place] [facility] Start: 02-29-2024 End: 02-29-2024 Patient encounter procedure 02/29/2024 2:40 PM EST Office Visit [facility] [place] [facility] [address] [place] [phone] Sonam Brown, PHYSICAL MEDICINE TEACHER [address] [place] [address] [facility] [place] [facility] Start: 02-16-2024 End: [...] 02/16/2024 11:30 AM EST Procedure Visit [facility] [address] [place] [address] Adelaida Carrion NP [address] [place] [address] [facility] Start: 02-04-2024 Influenza vaccination Influenza Vacc ine (#1) [facility] Comment on above: Postponed from 12/05 (Patient Does Not Have Time) Start: 01-28-2024 End: 01-27-2025 URINARY TRACT INFECTION (HTRX) URINARY TRACT INFECTION (HTRX) Lab Routine Acute cystitis without hematuria Expected: 01/28/2024 (Approximate), Expires: 01/27/2025 [facility] Work Phone: Comment on above: Expected: 01/28/2024 (Approximate), Expires: 01/27/2025 Start: 01-28-2024 End: 01-28-2024 Patient encounter procedure [facility] Comment on above: Tobacco dependence ( Primary Dx) Start: 01-04-2024 End: 01-03-2025 Basic metabolic 1998 panel - Serum or Plasma Basic metabolic panel Lab Routine Bilateral lower extremity edema Expected: 01/04/2024 (Approximate), Expires: 01/03/2025 [facility] Work Phone: Comment on above: Expected: 01/04/2024 (Approximate), Expires: 01/03/2025 Start: 01-04-2024 End: 01-04-2024 Patient encounter procedure [facility] Comment on above: Essential (primary) hypertension (CMS/HCC); Allergic rhinitis, unspecified Start: 12-09-2023 End: 12-09-2023 Patient encounter procedure 12/09/2023 10:30 AM EDT Office Visit [facility] [place] [address] [place] [phone] Juany Caballero NP [address] [place], [place] [facility] [place] [facility] Start: 12-08-2023 End: 12-08-2023 Patient encounter procedure 12/08/2023 3:20 PM EDT Office Visit [facility] [place] [facility] [address] [place] [phone] Sonam Brown NP [address] [place] [address] [facility] [place] [facility] Start: 09-16-2023 Screening for malign ant neoplasm of breast Mammogram [facility] Start: 08-17-2023 End: 08-17-2023 Patient encounter procedure 08/17/2023 9:20 AM EDT Office Visit [facility] [address] [place] [address] Adelaida Carrion NP [address] [place] [phone] [facility] Start: 05-22-2023 End: 05-22-2023 Patient encounter procedure 05/22/2023 8:45 AM EST Office Visit [facility] [address] [facility] [address] [place] [address] Travon Hines, PA [address] [facility] [address] [place] [address] [facility] Start: 05-18-2023 End: 05-18-2023 Patient encounter procedure 05/18/2023 4:30 PM EST Office Visit [facility] [address] [place] [address] Adelaida Carrion NP [address] [place] [phone] Arrived [facility] Comment on above: Arrived Start: 05-18-2023 End: 05-18-2024 XR Hip - left 3 Views XR hip left 2 or 3 views Imaging Routine Left hip pain Expected: 05/18/2023 (Approximate), Expires: 05/18/2024 [facility] Work Phone: Comment on above: Expected: 05/18/2023 (Approximate), Expires: 05/18/2024 Start: 03-23-2023 [facility] Start: 11-20-2022 [facility] Start: 11-18-2022 Referral to clinical sandwich machine operator [facility] Start: 11-17-2022 Hospital admission [facility] Start: 11-17-2022 [facility] Start: 12-06-1991 Screening for malign ant neoplasm of cervix HPV/Cotest [facility] Start: 1960 Medicare Annual Well ness (AWV) Medicare Annual Wellness (AWV) [facility] Start: 1960 Screening for malign ant neoplasm of colon [facility] BLOOD CULTURE 1 BLOOD CULTURE 1 Lab Routine 03/02/2024 3:20 AM EST [facility] Patient Education [facility] Work Phone: Patient referral [facility] Work Phone: [facility] Immunizations Immunization Date Immunization Notes Care Provider Fa [facility] 01-28-2024 Influenza, injectabl e, [place] Canine Kidney, preservative free, quadrivalent Adelaida Aichholz PHYSICAL MEDICINE TEACHER Work Phone: [facility] 08-17-2023 zoster vaccine recombinant Adelaida Aichholz PHYSICAL MEDICINE TEACHER Work Phone: [facility] 02-13-2023 influenza, injectabl e, quadrivalent, preservative free Adelaida Aichholz PHYSICAL MEDICINE TEACHER Work Phone: [facility] 02-13-2023 SARS-COV-2 (COVID-19 ) vaccine, mRNA, spike protein, LNP, PF, 50 mcg/0.5 mL Adelaida Aichholz PHYSICAL MEDICINE TEACHER Work Phone: [facility] 02-13-2023 influenza virus vaccine, unspecified formulation Adelaida Aichholz PHYSICAL MEDICINE TEACHER Work Phone: [facility] 02-19-2022 diphtheria, tetanus toxoids and pertussis vaccine Adelaida Aichholz PHYSICAL MEDICINE TEACHER Work Phone: [facility] 03-02-2021 Moderna SARS-CoV-2 Vaccination Adelaida Aichholz PHYSICAL MEDICINE TEACHER Work Phone: [facility] 08-24-2020 Moderna SARS-CoV-2 Vaccination Adelaida Aichholz PHYSICAL MEDICINE TEACHER Work Phone: [facility] 07-27-2020 Moderna SARS-CoV-2 Vaccination Adelaida Aichholz PHYSICAL MEDICINE TEACHER Work Phone: [facility] 05-28-2018 influenza, injectabl e, quadrivalent, preservative free Adelaida Aichholz Work Phone: [facility] 2017 pneumococcal conjuga te vaccine, 13 valent Adelaida Aichholz PHYSICAL MEDICINE TEACHER Work Phone: [facility] Payers Date Payer Category Payer Medicare [id number] 2022 Self-pay [id number] 2022 Medicare [id number] 2022 Medicare (Managed Care) [facility] MEDICARE [id number] 2008 Unknown [id number] 1961 Unknown [id number] 2.16.840.1.009273.3.579.2 .647 1961 Unknown [id number] 2.16.840.1.581436.3.579.2 .593 1961 Unknown [id number] 2.16.840.1.962480.3.579.2 .593 1961 Unknown [id number] 2.16.840.1.260459.3.579.2 .593 1961 Unknown [id number] 2.16.840.1.988717.3.579.2 .593 1961 Unknown [id number] 2.16.840.1.043080.3.579.2 .593 1961 Unknown [id number] 2.16.840.1.096030.3.579.2 .593 1961 Unknown [id number] 2.16.840.1.112516.3.579.2 .593 1961 Unknown [id number] 2.16.840.1.289286.3.579.2 .593 1961 Unknown [id number] 2.16.840.1.102432.3.579.2 .593 1961 Unknown [id number] 2.16.840.1.550702.3.579.2 .593 1961 Unknown [id number] 2.16.840.1.969986.3.579.2 .593 1961 Unknown [id number] 2.16.840.1.358039.3.579.2 .593 1961 Unknown [id number] 2.16.840.1.667881.3.579.2 .593 1961 Unknown [id number] 2.16.840.1.903845.3.579.2 .593 1961 Unknown [id number] 2.16.840.1.664368.3.579.2 .593 1961 Unknown [id number] 2.16.840.1.326943.3.579.2 .593 1961 Unknown [id number] 2.16.840.1.448623.3.579.2 .593 1961 Unknown [id number] 2.16.840.1.973556.3.579.2 .593 1961 Unknown [id number] 2.16.840.1.620917.3.579.2 .593 1961 Unknown [id number] 2.16.840.1.774088.3.579.2 .593 1961 Unknown [id number] 2.16.840.1.294828.3.579.2 .593 1961 Unknown [id number] 2.16.840.1.036710.3.579.2 .593 1961 Unknown [id number] 2.16.840.1.543357.3.579.2 .593 1961 Unknown [id number] 2.16.840.1.146267.3.579.2 .593 1961 Unknown [id number] 2.16.840.1.851366.3.579.2 .196 1961 Unknown [id number] 2.16.840.1.462378.3.579.2 .196 1961 Unknown [id number] 2.16.840.1.189183.3.579.2 .196 1961 Unknown [id number] 2.16.840.1.958385.3.579.2 .196 1961 Unknown [id number] 2.16.840.1.520853.3.579.2 .1259 1961 Unknown [id number] 2.16.840.1.562294.3.579.2 .1259 1961 Unknown [id number] 2.16.840.1.634274.3.579.2 .1258 1961 Unknown [id number] 2.16.840.1.223086.3.579.2 .1258 1961 Unknown [id number] 2.16.840.1.931961.3.579.2 .1258 1961 Unknown [id number] 2.16.840.1.446931.3.579.2 .1258 1961 Unknown [id number] 2.16.840.1.578479.3.579.2 .1258 1961 Unknown [id number] 2.16.840.1.111497.3.579.2 .1258 1961 Unknown [id number] 2.16.840.1.112160.3.579.2 .1258 1961 Unknown [id number] 2.16.840.1.006164.3.579.2 .1258 1961 Unknown [id number] 2.16.840.1.586483.3.579.2 .1258 1961 Unknown [id number] 2.16.840.1.009119.3.579.2 .1258 1961 Unknown [id number] 2.16.840.1.308317.3.579.2 .1258 1961 Unknown [id number] 2.16.840.1.370287.3.579.2 .1258 1961 Unknown [id number] 2.16.840.1.447192.3.579.2 .1258 1961 Unknown [id number] 2.16.840.1.488619.3.579.2 .1258 1961 Unknown [id number] 2.16.840.1.321910.3.579.2 .1258 1961 Unknown [id number] 2.16.840.1.218643.3.579.2 .1259 1961 Unknown [id number] 2.16.840.1.754661.3.579.2 .1259 1961 Unknown [id number] 2.16.840.1.312846.3.579.2 .1259 1959 Medicare [id number] 1959 Unknown [id number] Private Health Insurance [facility] [id number] Unknown [id number] 2.16.840.1.486020.3.579.2 .531 Unknown [id number] 2.16.840.1.265767.3.579.2 .531 Social History Date Type Detail Facility Start: 11-18-2022 End: 10-14-2023 Tobacco smoking status ARIS Ex-smoker (finding) [facility] Start: 1960 Sex Assigned At Female [facility] Start: 03-25-2023 End: 08-16-2023 Sex Assigned At [facility] Start: [birth year]-06-1976 End: 04-06-2016 History of tobacco use Current smoker [facility] Start: 04-06-1976 End: 04-06-2016 History of tobacco use Cigarette Smoker [facility] Start: 02-09-2023 End: 08-16-2023 Cigarettes smoked current (pack per day) - Reported 1 [facility] Start: 02-09-2023 End: 10-14-2023 Tobacco use and exposure Smokeless tobacco non-user [facility] Start: 05-18-2023 End: 08-16-2024 Alcohol intake Lifetime non-drinker (finding) [facility] Start: 11-13-2022 Alcohol Comment caffeine intake: 1-2 cups per day. [facility] Start: 10-01-2022 Gender identity Identifies as female gender (finding) [facility] Start: 10-01-2022 Sexual orientation Heterosexual (finding) [facility] Within the last year , have you been afraid of your partner or ex-partner? No [facility] Are you now , , , [...] Facility 11-20-2022 Functional status Patient at Baseline [facility] Work Phone: Mental Status Date Assessment Result Facility 11-20-2022 Cognitive function Cognitive Sta tus Patient is Progressing Toward Baseline [facility] Work Phone: Clinical Notes 10-03-2021 to 08-16-2024 Adelaida Carrion NP - 08/16/2024 1:00 PM Padmaja Carrion NP - 08/16/2024 1:00 PM VALERIE STANTON - 08/16/2024 11:30 AM Padmaja Carrion NP - 08/16/2024 11:30 AM EDTPatient Instructions Note Date & Type Note Facility 08-16-2024 History of Present illness Narrative Associated Problem(s): Former cigarette smoker Patient meets requirements [...] counseled on the importance of smoking cessation. Associated Problem(s): Allergic rhinitis Stop cetirizine, order naida Pt would like to discuss getting a CT low dose lung since she was a former smoker and has quit for 7 years Pt would also like to change her zyrtec to naida she feels that the zyrtec is not working for her any more and that she has been trying naida and it has been helping more. Images from the original note were not [...] biotin 5 MG tablet Pt taking OTC ([facility]) Calcium Citrate-Vitamin D (CITRACAL + D PO) Pt taking OTC ([employer]) carvedilol (COREG) 12.5 mg, Oral, 2 times daily with meals cetirizine (ZYRTEC) 10 mg, Oral, Daily diclofenac (Voltaren) 50 MG EC tablet DULoxetine (CYMBALTA) 60 mg, 2 times daily fluticasone (Flonase) 50 MCG/ACT nasal spray 2 sprays, Each Nostril, Daily gabapentin (NEURONTIN) 300 mg, Oral, 2 times daily, Due now losartan (COZAAR) 100 mg, Oral, Daily Magnesium 400 MG capsule Pt taking OTC([employer]) Melatonin 12 MG tablet 1 tablet, Nightly Multiple Vitamins-Minerals (BARIATRIC MULTIVITAMINS/IRON PO) Pt taking OTC ([facility]) omeprazole (PRILOSEC) 20 mg, Oral, Daily before [...] Anxiety 05/18/2023 Bipolar disorder with severe depression ([facility]) 05/18/2023 Brain lesion Brain vascular malformation Chronic pain disorder Closed fracture of patella 02/04/2018 Colon polyps Constipation Degenerative cervical disc Degenerative lumbar disc Depression (CMS/HCC) 05/18/2023 Diastolic dysfunction Dizziness 05/18/2023 Dysphagia Fibromyalgia Fibromyalgia Gastrocnemius equinus GERD (gastroesophageal reflux disease) Heart murmur Hematoma of right breast Hemiparesis ([facility]) Hemiparesis, right ([facility]) Hemorrhoid int/external hemorrhoids Hiatal hernia Iron deficiency Left foot pain 03/25/2023 Lower extremity edema Mood disorder ([facility]) mixed mood disorder OSMANY (obstructive sleep apnea) Osteoporosis ([facility]) Overactive bladder Pre-diabetes Primary hypertension ([facility]) 03/25/2023 PTSD (post-traumatic stress disorder) ([facility]) Restless leg Right knee pain Right sided weakness S/P bariatric surgery Shingles Slurred speech Stroke ([facility]) 2018 Tenosynovitis, de Quervain Thoracic [...] Large adult long) Pulse 67 Temp 98.5 F (Temporal) Resp 18 Wt 281 lb SpO2 97% BMI 48.23 kg/m Smoking Status Former BSA 2.4 m [...] At last appt added trelegy 100's resolved Associated Problem(s): Pre-diabetes Currently no meds A1c: 5.6% not on current therapy Associated Problem(s): Morbid (severe) obesity due to [...] with current dose of aldactone 50mg daily Associated Problem(s): Primary hypertension (CMS/HCC) Please check blood pressure daily and record DASH diet Limit caffeine Take medication as directed Contact office if chest pain, pressure, dizziness, shortness of breath, swelling legs Recommend slow position changes Current meds: amlodipine, losartan Associated Problem(s): Bronchitis At last appt added trelegy 100's resolved documented in this encounter [facility] 08-16-2024 Instructions Adelaida Carrion NP - 08/16/2024 11:30 AM EDT Mammogram and lung cancer CT documented in this encounter [facility] 07-27-2024 History of Present illness Narrative Associated Problem(s): Bronchitis Continue OTC mucus relief meds Will add trelegy for bronchitis 100's #2 samples lot [id number], exp 10/28 Fu if not better No s/s resp distress [facility] ER- 07/24/24 Bronchitis & Leurisy Medications: mucus relief and diclofenac Pt talked with bong yesterday with pt outreach; pt is hoping to get a sample inhaler from the office visit. She is unable to get medications prescribed from ER due to financials Tightness in the upper ribs in the back/middle back Persistent wet cough-white phlegm Pt is not taking anything otc due to not having anything at home or any money to get anything Images from the original note were not included. Michelle Be is a 63 y.o. female presents with chief complaint of Hospital Follow-up HPI: [facility] ER- 07/24/24 Bronchitis & Leurisy Medications: mucus relief and diclofenac Pt talked with bong yesterday with pt outreach; pt is hoping to get a sample inhaler from the office visit. She is unable to get medications prescribed from ER due to financials Tightness in the upper ribs in the back/middle back Persistent wet cough-white phlegm Pt is not taking anything otc due to not having anything at home or any money to get anything No fever, chills, still no color to sputum, +wheeze at times SUBJECTIVE: MEDICATIONS: Current Outpatient Medications Medication Instructions amLODIPine (NORVASC) 10 mg, Oral, Daily biotin 5 MG tablet Pt taking OTC ([facility]) Calcium Citrate-Vitamin D (CITRACAL + D PO) Pt taking OTC ([employer]) carvedilol (COREG) 12.5 mg, Oral, 2 times daily with meals cetirizine (ZYRTEC) 10 mg, Oral, Daily diclofenac (Voltaren) 50 MG EC tablet DULoxetine (CYMBALTA) 60 mg, 2 times daily fluticasone (Flonase) 50 MCG/ACT nasal spray 2 sprays, Each Nostril, Daily gabapentin (NEURONTIN) 300 mg, Oral, 2 times daily, Due now losartan (COZAAR) 100 mg, Oral, Daily Magnesium 400 MG capsule Pt taking OTC([employer]) Melatonin 12 MG tablet 1 tablet, Nightly Multiple Vitamins-Minerals (BARIATRIC MULTIVITAMINS/IRON PO) Pt taking OTC ([facility]) omeprazole (PRILOSEC) 20 mg, Oral, Daily before [...] change, chills and fever. HENT: Positive for rhinorrhea. Negative for congestion, ear pain and sore throat. Eyes: Negative for pain, discharge, redness and visual disturbance. Respiratory: Positive for cough and wheezing. Negative for shortness of breath. Cardiovascular: Positive for chest pain. Negative for palpitations and leg swelling. Gastrointestinal: Negative for abdominal pain, blood in stool, constipation, diarrhea, nausea and vomiting. Genitourinary: Negative for difficulty urinating, dysuria and frequency. Musculoskeletal: Negative for arthralgias, back pain, joint swelling and myalgias. Skin: Negative for rash and wound. Neurological: Negative for dizziness, tremors, seizures, syncope and headaches. Psychiatric/Behavioral: Negative for behavioral problems, self-injury and suicidal ideas. The patient is not nervous/anxious. Hematological: Does not bruise/bleed easily. Endocrine: [...] mood disorder OSMANY (obstructive sleep apnea) Osteoporosis ([facility]) Overactive bladder Pre-diabetes Primary hypertension ([facility]) 03/25/2023 PTSD (post-traumatic stress disorder) ([facility]) Restless leg Right knee pain Right sided weakness S/P bariatric surgery Shingles Slurred speech Stroke ([facility]) 2018 Tenosynovitis, de Quervain Thoracic [...] in her mother. OBJECTIVE: Visit Vitals BP 124/86 (BP Location: Left arm, Patient Position: Sitting, BP Cuff Size: Adult long) Pulse 82 Temp 98.8 F (Temporal) Resp 24 Wt 295 lb 3.2 oz SpO2 97% BMI 50.67 kg/m Smoking Status Former BSA 2.46 m Physical Exam Vitals and nursing note reviewed. Constitutional: General: She is not in acute distress. Appearance: Normal appearance. She is obese. She is not ill-appearing. HENT: Head: Normocephalic and atraumatic. Right Ear: Tympanic membrane, ear canal and external ear normal. Left Ear: Tympanic membrane, ear canal and external ear normal. Nose: Rhinorrhea present. No congestion. Mouth/Throat: Mouth: Mucous membranes are moist. Pharynx: No oropharyngeal exudate or posterior oropharyngeal erythema. Eyes: Extraocular Movements: Extraocular movements intact. Conjunctiva/sclera: Conjunctivae normal. Cardiovascular: Rate and Rhythm: Normal rate and regular rhythm. Pulses: Normal pulses. Heart sounds: Normal heart sounds. No murmur heard. Pulmonary: Effort: Pulmonary effort is normal. Breath sounds: Normal breath sounds. No wheezing. Abdominal: General: Bowel sounds are normal. There [...] Has had bariatric surgeries in the past Bilateral lower extremity edema Relevant Medications spironolactone (Aldactone) 50 MG tablet Primary hypertension (CMS/HCC) - Primary Please check blood pressure daily and record DASH diet Limit caffeine Take medication as directed Contact office if chest pain, pressure, dizziness, shortness of breath, swelling legs Recommend slow position changes Current meds: amlodipine, losartan Other Visit Diagnoses Essential (primary) hypertension (CMS/HCC) Relevant Medications amLODIPine (Norvasc) 10 MG tablet carvedilol (Coreg) 12.5 MG tablet losartan (Cozaar) 100 MG tablet Allergic rhinitis, unspecified Relevant Medications cetirizine (ZyrTEC) 10 MG tablet fluticasone (Flonase) 50 MCG/ACT nasal spray Gastro-esophageal reflux disease without esophagitis Relevant Medications omeprazole (PriLOSEC) [address] capsule Associated Problem(s): Morbid (severe) obesity due to excess calories (CMS/HCC) Discussed with patient their BMI (actual, verses recommended). We have also discussed lifestyle modifications: attempts to perform physical activity as chronic conditions allow, also to monitor dietary intake: increasing protein/fruits/veggies and lowering carb intake (unless contraindicated). Limit sodas, juices, and sugary drinks. Has had bariatric surgeries in the past Associated Problem(s): Primary hypertension (CMS/HCC) Please check blood pressure daily and record DASH diet Limit caffeine Take medication as directed Contact office if chest pain, pressure, dizziness, shortness of breath, swelling legs Recommend slow position changes Current meds: amlodipine, losartan documented in this encounter [facility] 07-26-2024 History of Present illness Narrative Images from the original note were not included. Subjective Chief Complaint Patient presents with Altered Mental Status Past Medical History: Diagnosis Date Abnormal mammogram [...] S/P bariatric surgery Shingles Slurred speech Stroke ([facility]) 2017 Tenosynovitis, de Quervain Thoracic back pain, [...] date: 1976 Quit date: 2016 Years since quittin.3 Smokeless tobacco: Never Substance Use Topics Alcohol use: Never Comment: caffeine intake: 1-2 cups per day. Medication Documentation Review Audit Reviewed by Beronica Reyes MA (Steel Wool Machine Operator) on 07/26/24 at 1049 Medication Order Taking? Sig Documenting Provider Last Dose Status amLODIPine (Norvasc) 10 MG tablet [id number] Take 1 tablet (10 mg) by mouth Daily Adelaida Carrion NP 06/11/242358 azithromycin (Zithromax) 250 MG tablet [id number] Day #1: 2 tablets, and Day 2-5: 1 tablet daily Adelaida Carrion NP Active biotin 5 MG tablet [id number] Pt taking OTC ([facility]) Historical ProviderMD Active Calcium Citrate-Vitamin D (CITRACAL + D PO) [id number] Pt taking OTC ([employer]) Historical Provider, Active carvedilol (Coreg) 12.5 MG tablet [id number] Take 1 tablet (12.5 mg) by mouth in the morning and 1 tablet (12.5 mg) in the evening. Take with meals. Adelaida Carrion NP 06/11/242358 cetirizine (ZyrTEC) 10 MG tablet [id number] Take 1 tablet (10 mg) by mouth Daily Adelaida Carrion NP 06/11/242358 DULoxetine (Cymbalta) [address] capsule [id number] Take 60 mg by mouth in the morning and 60 mg before bedtime. Do not crush or chew.. Active fluticasone (Flonase) 50 MCG/ACT nasal spray [id number] Administer 2 sprays into each nostril Daily Adelaida Carrion NP 06/11/242358 gabapentin (Neurontin) 300 MG capsule [id number] Take 1 capsule (300 mg) by mouth in the morning and 1 capsule (300 mg) before bedtime. Due now. MAUREEN Akbar Active losartan (Cozaar) 100 MG tablet [id number] Take 1 tablet (100 mg) by mouth Daily Adelaida Carrion NP 06/11/242358 Magnesium 400 MG capsule [id number] Pt taking OTC([employer]) Historical ProviderMD Active Melatonin 12 MG tablet [id number] Take 1 tablet by mouth at bedtime Active Multiple Vitamins-Minerals (BARIATRIC MULTIVITAMINS/IRON PO) [id number] Pt taking OTC (Match) Historical ProviderMD Active nystatin (Mycostatin) 920262 UNIT/GM powder [id number] Apply 1 application topically in the morning and 1 application before bedtime. Adelaida Carrion NP Active nystatin (Mycostatin) cream [id number] Adelaida Carrion NP Active omeprazole (PriLOSEC) [address] capsule [id number] Take 1 capsule (20 mg) by mouth in the morning. Take before meals. Adelaida Carrion NP 06/11/242358 rOPINIRole (Requip) 2 MG tablet [id number] Take 1 tablet (2 mg) by mouth at bedtime MAUREEN Akbar Active spironolactone (Aldactone) 50 MG tablet [id number] Take 1 tablet (50 mg) by mouth Daily Adelaida Carrion NP 06/11/24 235 tiZANidine (Zanaflex) 4 MG tablet [id number] Take 4 mg by mouth every 8 (eight) hours if needed for muscle spasms 1-2 tablets Adelaida Carrion NP Active traZODone (Desyrel) 150 MG tablet [id number] Take 150 mg by mouth at bedtime Active Vraylar 3 MG capsule [id number] Active HPI AMS -weaned Lacosimide -denies any further headaches and dizziness -denies any recent episodes of confusion -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 -states long-term is mild -forgets recent conversations and events -miss places things around the house -sleep is inconsistent -averages 5-8 hours a night -wakes feeling rested for the most part -uses CPAP nightly -she has been having issues due to her sinus recently -she currently has bronchitis -she is wondering about starting something for ADD -her psychiatrist does not treat this -her neuropsych noted distractibility but this was due to other medical issues versus attention deficit -she notes her daughter is on Vyvanse and would like to try this RLS -on Gabapentin and Requip -weaned Clonazepam -since she stopped her legs have gotten worse -she wonders if she can increase the Requip -states her symptoms are mostly at night but does happen during the day -takes hot shower and this helps -usually only notices in the left leg ROS Review of Systems Constitutional: Positive for fatigue. Negative for chills, diaphoresis and fever. Eyes: Negative for photophobia. Respiratory: Negative for cough and shortness of breath. Cardiovascular: Negative for chest pain and palpitations. Gastrointestinal: Negative for abdominal pain, nausea and vomiting. Musculoskeletal: Positive for back pain. Negative for neck pain. Neurological: Negative for dizziness, seizures, syncope, weakness, light-headedness and headaches. Psychiatric/Behavioral: Positive for confusion and decreased concentration. Negative for agitation and hallucinations. Objective Visit Vitals BP 126/84 Ht 5' 4 Wt 297 lb BMI 50.98 kg/m Smoking Status Former BSA 2.47 m GENERAL Apical RRR, no murmur Neurological Exam Mental Status Awake and alert. Oriented only to person, place and time. Recent and remote memory are intact. Speech is normal. Speech: May be slightly slurred. Language is fluent with no aphasia. Attention and concentration are normal. Fund of knowledge is appropriate for level of education. Cranial Nerves CN III, IV, : Extraocular movements intact bilaterally. Normal lids and orbits bilaterally. Pupils equal round and reactive to light bilaterally. CN V: Facial sensation is normal. CN VII: Full and symmetric facial movement. CN VIII: Hearing is normal. CN XI: Shoulder shrug strength is normal. Sensory Light touch is normal in upper and lower extremities. Gait Casual gait is normal including stance, stride, and arm swing. Motor Examination RUE Strength deltoid, biceps, triceps, wrist extensors, wrist extensors, wrist flexor, photographic engineer strength 5/5. LUE Strength deltoid, biceps, triceps, wrist extensors, wrist extensors, wrist flexor, photographic engineer strength 5/5. RLE Strength illopsoas, quadriceps, tibialis anterior, and gastrocnemius strength 5/5. LLE Strength illopsoas, quadriceps, tibialis anterior, and gastrocnemius strength 5/5. Tone Normal tone x4 extremities. Reflexes: RUE biceps reflex 2, brachioradialis reflex 2 LUE biceps reflex 2, brachioradialis reflex 2 RLE knee reflex 2, LLE knee reflex 2, Assessment and Plan 1. AMS - Patient seen for encephalopathy. Medical history includes primary hypertension, cervical spondylosis, stroke, restless legs syndrome, obstructive sleep apnea, brain vascular malformation, GERD, bariatric surgery, fibromyalgia, degenerative spine disease, prediabetes, vertigo, PTSD, mood disorder, depression, bipolar disorder, anxiety, and brain vascular malformation. This list is not all inclusive. Patient was admitted to [facility] from the [facility] on 08/24/2023 with acute respiratory failure and confusion thought to be secondary to metabolic encephalopathy. MOCA 03/01/24 was 26/30. She notes she did speech therapy and responded well to this. She was recently evaluated at [facility] [place] 03/02/2024 for severe encephalopathy. She had brain MRI with and without contrast that revealed small persistent left thalamic lesion. Diffuse atrophy greatest along the frontal and temporal lobes. Routine EEG was abnormal due to mild background slowing, intermittent bifrontal slowing, equivocal asynchronous temporal lobe discharges. There was question of her night time medications caused akathisia and requip and clonazepam were decreased. She was started on vimpat 50mg PO BID out of abundance of caution, though concern for subclinical seizure activity was low. 2 hour EEG 03/28/24 was normal. Neuropsychological evaluation 04/07/24 was normal for her age. It appeared to be due to a combination of anxiety and multiple medication issues sapping attentional resources. Her Vimpat was weaned and she has had improvement in dizziness and headaches. Her RLS has increased as she also stopped her Klonopin. She is concerned about ADD. 2. Small left thalamic lesion -lesion that [...] August but is back to her baseline. She denies new signs or symptoms of stroke. 3. Chronic carpal tunnel syndrome - Right. - Stable 5. 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 Nixon. At baseline. 6. RLS on gabapentin and ropinirole and clonazepam, mostly at night but sometimes in the day. Mostly controlled but her symptoms have increased somewhat. She did not respond to Mirapex in the past. She has to take a warm bath to help and her sleep is disrupted. She was previously on gabapentin 600mg BID and 1200mg at bedtime. She notes that since she stopped klonopin her symptoms have increased. 7. OSMANY - Original AHI was 5. She has a CPAP that she wears every night. She is doing much better and feels more rested. She wears her CPAP every night. Usage average up 14%. Averages almost 6 hours a night. ___ [facility] evaluation 02/29/2024: Brain MRI with and without contrast revealed no acute intracranial pathology or abnormal postcontrast enhancement. Diffuse atrophy which is greatest along the frontal and temporal lobes. This is nonspecific. Routine EEG: Abnormal. Background rhythm mildly slow and superimposed bifrontal slowing intermittently. Multiple equivocal sharp wave discharges from either the left temporal lobe or the right temporal lobe, but not at the same time Evaluation in August 24, 2023: 1. CT [...] of the brain in July 2019 showed [id number] white matter changes with the largest area [...] to chronic migraine, demyelinating, chronic small-vessel changes. PLAN: 1. Neuropsychological evaluation again revealed with the patient. We will also review with Dr. Foster from attention standpoint. 2. Increase Requip 3mg PO at bedtime for RLS. 3. I counseled the patient on the side effect of medications. 4. Continue Gabapentin 300 mg BID for RLS. 5. Continue to follow with psychiatry. 6. Patient was advised to call the office for any new or worsening symptoms. She was advised that she is at increased risk of possible breakthrough event. She verbalized understanding. Follow up in 2 months documented in this encounter [facility] 05-12-2024 History of Present illness Narrative A1c [...] includes CVA. There is no history of CAD/GA, heart failure or PVD. GERD She reports [...] biotin 5 MG tablet Pt taking OTC (Match) Calcium Citrate-Vitamin D (CITRACAL + D PO) Pt taking OTC ([employer]) carvedilol (COREG) 12.5 mg, Oral, 2 times [...] Daily Magnesium 400 MG capsule Pt taking OTC([employer]) Melatonin 12 MG tablet 1 tablet, Nightly Multiple Vitamins-Minerals (BARIATRIC MULTIVITAMINS/IRON PO) Pt taking OTC (Match) nystatin (Mycostatin) [id number] UNIT/GM powder 1 application , 2 times [...] Anxiety 05/18/2023 Bipolar disorder with severe depression ([facility]) 05/18/2023 Brain lesion Brain vascular malformation Chronic pain disorder Closed fracture of patella 02/04/2018 Colon polyps Constipation Degenerative cervical disc Degenerative lumbar disc Depression ([facility]) 05/18/2023 Diastolic dysfunction Dizziness 05/18/2023 Dysphagia Fibromyalgia Fibromyalgia Gastrocnemius equinus GERD (gastroesophageal reflux disease) Heart murmur Hematoma of right breast Hemiparesis ([facility]) Hemiparesis, right ([facility]) Hemorrhoid int/external hemorrhoids Hiatal hernia Iron deficiency Left foot pain 03/25/2023 Lower extremity edema Mood disorder ([facility]) mixed mood disorder OSMANY (obstructive sleep apnea) Osteoporosis ([facility]) Overactive bladder Pre-diabetes Primary hypertension ([facility]) 03/25/2023 PTSD (post-traumatic stress disorder) ([facility]) Restless leg Right knee pain Right sided weakness S/P bariatric surgery Shingles Slurred speech Stroke ([facility]) 2018 Tenosynovitis, de Quervain Thoracic [...] Morbid (severe) obesity due to excess calories ([facility]) Discussed with patient their BMI [...] that manages your OSMANY: Daniela Hemiparesis, right ([facility]) Stable with this from prior [...] spironolactone (Aldactone) 50 MG tablet Primary hypertension ([facility]) - Primary Please check blood pressure daily and record DASH diet Limit caffeine Take medication as directed Contact office if chest pain, pressure, dizziness, shortness of breath, swelling legs Recommend slow position changes Current meds: amlodipine, losartan Chronic kidney disease, stage 3a (HCC) ([facility]) Monitor labs at minimum every year Body mass index (BMI) 45.0-49.9, adult ([facility]) Other Visit Diagnoses Essential (primary) hypertension ([facility]/HCC) Relevant Medications amLODIPine (Norvasc) 10 MG [...] that supplies your machine and tubing/filters etc: [facility] Doctor that manages your OSMANY: Daniela Associated Problem(s): Hemiparesis, right (CMS/HCC) Stable with this from prior stroke documented in this encounter [facility] 05-12-2024 Instructions Adelaida Carrion NP - 05/12/2024 10:00 AM EST No changes in meds documented in this encounter [facility] 04-12-2024 Telephone encounter Note 03/10/2024 Continue Gabapentin 300 mg BID for RLS. Continue clonazepam 0.5mg PO BID for RLS. This was decreased during recent hospitalization Continue Vimpat 50mg PO BID for seizure prevention [facility] 04-12-2024 Miscellaneous Notes 03/10/2024 Continue Gabapentin 300 mg BID for RLS. Continue clonazepam 0.5mg PO BID for RLS. This was decreased during recent hospitalization Continue Vimpat 50mg PO BID for seizure prevention documented in this encounter [facility] 04-07-2024 History of Present illness Narrative Images [...] homebody. 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 Diagnosed with OSMANY and RLS, wears CPAP nightly. Pain complaints include fibromyalgia and degenerative disc disease. Also has prior history of migraines which have resolved over the past 17 years. Neurological history includes small left thalamic stroke in 2016. MoCA 26/30. Patient accurately recalled this screening measure as well as her overall performance and score on it. Admitted to [facility] from the [facility] on 08/24/2023 with acute respiratory failure and confusion thought to be secondary to metabolic encephalopathy. LTME in August 2023 negative. Recently evaluated at [facility] on 03/02/2024 for severe [...] any history of alcohol/substance abuse. Reformed smoker. [place] language Croatian. Reported relocating from [place] to [place] in 2011. Completed a bachelor's degree. 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 Currently on disability. Resides with of 26 years along with her son, grandson, and 2 dogs. Has 2 children from a prior relationship. MEDICAL HISTORY/MEDICATION: MEDICATIONS: Current Outpatient Medications Medication Instructions amLODIPine (NORVASC) 10 mg, Oral, Daily biotin 5 MG tablet Pt taking OTC ([facility]) Calcium Citrate-Vitamin D (CITRACAL + D PO) Pt taking OTC ([facility]) carvedilol (COREG) 12.5 mg, Oral, [...] Daily Magnesium 400 MG capsule Pt taking OTC([employer]) Melatonin 12 MG tablet 1 tablet, Oral, Nightly Multiple Vitamins-Minerals (BARIATRIC MULTIVITAMINS/IRON PO) Pt taking OTC (Match) nystatin (Mycostatin) [id number] UNIT/GM powder 1 application , 2 times [...] design >16th %ile. Motor/Speed of Processing: Right-handed. Cut Out Operator strength 16th %ile with right-hand, 38th [...] Learning of a word list 79th %ile (3-14-74-12-12), delayed recall 93rd %ile. Recognition discriminability 93rd [...] Please contact me with any questions at [phone]. documented in this encounter [facility] 03-16-2024 History of Present illness Narrative Associated Problem(s): Right bundle branch block (RBBB) determined by electrocardiography At this point I will look at her past EKG's, She has had ECHO in past No symptoms, at this time I do not think that further testing is needed Pt is having a memory test done on apr 07 in [place] Pt is anxious and afraid-pt father had dementia Spironolactone pt is asking for 50mg instead of 25mg Images from the original note were not included. Michelle Be is a 63 y.o. female presents with chief complaint of Anxiety HPI: Here for hospital follow up: AMS She was evaluated at [facility], was seen by Neurology [...] biotin 5 MG tablet Pt taking OTC ([facility]) Calcium Citrate-Vitamin D (CITRACAL + D PO) Pt taking OTC ([facility]) carvedilol (COREG) 12.5 mg, Oral, [...] Daily Magnesium 400 MG capsule Pt taking OTC([employer]) Melatonin 12 MG tablet 1 tablet, Oral, Nightly Multiple Vitamins-Minerals (BARIATRIC MULTIVITAMINS/IRON PO) Pt taking OTC (Match) nystatin (Mycostatin) [id number] UNIT/GM powder 1 application , 2 times [...] Anxiety 05/18/2023 Bipolar disorder with severe depression ([facility]) 05/18/2023 Brain lesion Brain vascular malformation Chronic pain disorder Closed fracture of patella 02/04/2018 Colon polyps Constipation Degenerative cervical disc Degenerative lumbar disc Depression ([facility]) 05/18/2023 Diastolic dysfunction Dizziness 05/18/2023 Dysphagia Fibromyalgia Fibromyalgia Gastrocnemius equinus GERD (gastroesophageal reflux disease) Heart murmur Hematoma of right breast Hemiparesis ([facility]) Hemiparesis, right ([facility]) Hemorrhoid int/external hemorrhoids Hiatal hernia Iron deficiency Left foot pain 03/25/2023 Lower extremity edema Mood disorder ([facility]) mixed mood disorder OSMANY (obstructive sleep apnea) Osteoporosis ([facility]) Overactive bladder Pre-diabetes Primary hypertension ([facility]) 03/25/2023 PTSD (post-traumatic stress disorder) ([facility]) Restless leg Right knee pain Right sided weakness S/P bariatric surgery Shingles Slurred speech Stroke ([facility]) 2018 Tenosynovitis, de Quervain Thoracic [...] to have evaluation documented in this encounter [facility] 03-16-2024 Instructions Adelaida Carrion NP - 03/16/2024 10:00 AM EST Spironolactone: I discontinued the 25mg script for this, sent a new script to [facility], for a 50mg pill, you will take 1 pill daily Memory testing in Apr 2024 Follow up with me in early May, sooner if needed documented in this encounter [facility] 03-16-2024 Telephone encounter Note Yep, sent to [facility]. [facility] 03-16-2024 Miscellaneous Notes Yep, sent to [facility]. Patient calls and states that hospital lowered her requip to 2 mg at bed time. Okay to send as new dosage? documented in this encounter [facility] 03-15-2024 Telephone encounter Note Patient calls and states that hospital lowered her requip to 2 mg at bed time. Okay to send as new dosage? [facility] 03-14-2024 History of Present illness Narrative Images [...] performance and score on it. Admitted to [facility] from the [facility] on 08/24/2023 with acute respiratory failure and confusion thought to be secondary to metabolic encephalopathy. Previous LTME in August 2023 negative. Recently evaluated at [facility] on 03/02/2024 for severe [...] any history of alcohol/substance abuse. Reformed smoker. [place] language Croatian. Reported relocating from [place] to [place] in 2011. Completed a bachelors degree. Previously [...] Heart murmur Hematoma of right breast Hemiparesis ([facility]) Hemiparesis, right ([facility]) Hemorrhoid int/external hemorrhoids Hiatal hernia Iron deficiency Left foot pain 03/25/2023 Lower extremity edema Mood disorder ([facility]) mixed mood disorder OSMANY (obstructive sleep apnea) Osteoporosis ([facility]) Overactive bladder Pre-diabetes Primary hypertension ([facility]) 03/25/2023 PTSD (post-traumatic stress disorder) ([facility]) Restless leg Right knee pain Right sided weakness S/P bariatric surgery Shingles Slurred speech Stroke ([facility]) 2018 Tenosynovitis, de Quervain Thoracic back pain, unspecified back pain laterality, unspecified chronicity Tobacco dependence Vertigo, benign paroxysmal Yeast infection of the skin 05/18/2023 MEDICATIONS: Current Outpatient Medications Medication Instructions amLODIPine (NORVASC) 10 mg, Oral, Daily biotin 5 MG tablet Pt taking OTC (Match) Calcium Citrate-Vitamin D (CITRACAL + D PO) Pt taking OTC [employer]) carvedilol (COREG) 12.5 mg, Oral, 2 times [...] Daily Magnesium 400 MG capsule Pt taking [employer]) Melatonin 12 MG tablet 1 tablet, Oral, Nightly Multiple Vitamins-Minerals (BARIATRIC MULTIVITAMINS/IRON PO) Pt taking OTC ([employer]) nystatin (Mycostatin) [id number] UNIT/GM powder 1 application , Topical, 2 [...] Please contact me with any questions at [phone]. documented in this encounter [facility] 02-16-2024 History of Present illness Narrative Pt [...] biotin 5 MG tablet Pt taking OTC (Match) Calcium Citrate-Vitamin D (CITRACAL + D PO) Pt taking OTC ([facility]) carvedilol (COREG) 12.5 mg, Oral, [...] Daily Magnesium 400 MG capsule Pt taking OT([employer]) Melatonin 12 MG tablet 1 tablet, Oral, Nightly Multiple Vitamins-Minerals (BARIATRIC MULTIVITAMINS/IRON PO) Pt taking OTC (Match) nystatin (Mycostatin) [id number] UNIT/GM powder 1 application , Topical, 2 [...] Anxiety 05/18/2023 Bipolar disorder with severe depression ([facility]) 05/18/2023 Brain lesion Brain vascular malformation Chronic pain disorder Closed fracture of patella 02/04/2018 Colon polyps Constipation Degenerative cervical disc Degenerative lumbar disc Depression ([facility]) 05/18/2023 Diastolic dysfunction Dizziness 05/18/2023 Dysphagia Fibromyalgia Fibromyalgia Gastrocnemius equinus GERD (gastroesophageal reflux disease) Heart murmur Hematoma of right breast Hemiparesis ([facility]) Hemiparesis, right ([facility]) Hemorrhoid int/external hemorrhoids Hiatal hernia Iron deficiency Left foot pain 03/25/2023 Lower extremity edema Mood disorder ([facility]) mixed mood disorder OSMANY (obstructive sleep apnea) Osteoporosis ([facility]) Overactive bladder Pre-diabetes Primary hypertension ([facility]) 03/25/2023 PTSD (post-traumatic stress disorder) ([facility]) Restless leg Right knee pain Right sided weakness S/P bariatric surgery Shingles Slurred speech Stroke ([facility]) 2018 Tenosynovitis, de Quervain Thoracic [...] nursing note reviewed. Exam conducted with a clinical quality assurance associate present. Constitutional: General: She is not [...] chronic conditions allow documented in this encounter [facility] 01-28-2024 History of Present illness Narrative Associated [...] ER fu for UTI and dehydration. See [facility] for HPI Was sent home on Bactrim. Feels completely fine now, no fever, chills, malodorous urine, no constipation diarrhea or abd pain SUBJECTIVE: MEDICATIONS: Current Outpatient Medications Medication Instructions amLODIPine (NORVASC) 10 mg, Oral, Daily biotin 5 MG tablet Pt taking OTC ([employer]) Calcium Citrate-Vitamin D (CITRACAL + D PO) Pt taking OTC ([employer]) carvedilol (COREG) 12.5 mg, Oral, 2 times [...] Daily Magnesium 400 MG capsule Pt taking OTC([employer]) Melatonin 12 MG tablet 1 tablet, Oral, Nightly Multiple Vitamins-Minerals (BARIATRIC MULTIVITAMINS/IRON PO) Pt taking OTC ([employer]) nystatin (Mycostatin) [id number] UNIT/GM powder 1 application , Topical, 2 [...] Anxiety 05/18/2023 Bipolar disorder with severe depression ([facility]) 05/18/2023 Brain lesion Brain vascular malformation Chronic pain disorder Closed fracture of patella 02/04/2018 Colon polyps Constipation Degenerative cervical disc Degenerative lumbar disc Depression ([facility]) 05/18/2023 Diastolic dysfunction Dizziness 05/18/2023 Dysphagia Fibromyalgia Fibromyalgia Gastrocnemius equinus GERD (gastroesophageal reflux disease) Heart murmur Hematoma of right breast Hemiparesis ([facility]) Hemiparesis, right ([facility]) Hemorrhoid int/external hemorrhoids Hiatal hernia Iron deficiency Left foot pain 03/25/2023 Lower extremity edema Mood disorder ([facility]) mixed mood disorder OSMANY (obstructive sleep apnea) Osteoporosis ([facility]) Overactive bladder Pre-diabetes Primary hypertension ([facility]) 03/25/2023 PTSD (post-traumatic stress disorder) ([facility]) Restless leg Right knee pain Right sided weakness S/P bariatric surgery Shingles Slurred speech Stroke ([facility]) 2018 Tenosynovitis, de Quervain Thoracic [...] of the risks of continued smoking: stroke, GA, all forms of cancer, lung disease, and [...] Relevant Orders Flu vaccine, MDCK, quadrivalent, PF ([id number]) (Flucelvax single dose syringe) Associated Problem(s): Tobacco dependence The patient has been advised of the risks of continued smoking: stroke, GA, all forms of cancer, lung disease, and . Options for quitting smoking include: cold turkey, hypnosis, acupuncture, nicotine replacement meds (gum, lozenges, and patches), Buproprion, and Varenicline. At this time pt is encouraged to evaluate their goals for wanting to quit smoking, and reach out to provider when ready to start this process documented in this encounter [facility] 01-04-2024 History of Present illness Narrative Associated [...] compliance problems. There is no history of CAD/GA, heart failure or PVD. Identifiable causes of hypertension include sleep apnea. SUBJECTIVE: MEDICATIONS: Current Outpatient Medications Medication Instructions amLODIPine (NORVASC) 10 mg, Oral, Daily biotin 5 MG tablet Pt taking OTC (Match) Calcium Citrate-Vitamin D (CITRACAL + D PO) Pt taking OTC GigsJam) carvedilol (COREG) 12.5 mg, Oral, 2 times [...] Daily Magnesium 400 MG capsule Pt taking OTNetLex) Melatonin 12 MG tablet 1 tablet, Oral, Nightly Multiple Vitamins-Minerals (BARIATRIC MULTIVITAMINS/IRON PO) Pt taking OTC Check I'm Here) nystatin (Mycostatin) 630541 UNIT/GM powder 1 application , Topical, 2 [...] Anxiety 05/18/2023 Bipolar disorder with severe depression ([facility]) 05/18/2023 Brain lesion Brain vascular malformation Chronic pain disorder Closed fracture of patella 02/04/2018 Colon polyps Constipation Degenerative cervical disc Degenerative lumbar disc Depression ([facility]/H[facility]) 05/18/2023 Diastolic dysfunction Dizziness 05/18/2023 Dysphagia Fibromyalgia Fibromyalgia Gastrocnemius equinus GERD (gastroesophageal reflux disease) Heart murmur Hematoma of right breast Hemiparesis ([facility]/HCC) Hemiparesis, right ([facility]) Hemorrhoid int/external hemorrhoids Hiatal hernia Iron deficiency Left foot pain 03/25/2023 Lower extremity edema Mood disorder (CMS/HCC) mixed mood disorder OSMANY (obstructive sleep apnea) Osteoporosis ([facility]) Overactive bladder Pre-diabetes Primary hypertension ([facility]) 03/25/2023 PTSD (post-traumatic stress disorder) ([facility]) Restless leg Right knee pain Right sided weakness S/P bariatric surgery Shingles Slurred speech Stroke ([facility]) 2018 Tenosynovitis, de Quervain Thoracic [...] MCG/ACT nasal spray documented in this encounter [facility] 12-09-2023 History of Present illness Narrative Images [...] machine. She is normally seen at the [facility] and was last seen on [...] Degenerative cervical disc Degenerative lumbar disc Depression ([facility]) 05/18/2023 Diastolic dysfunction Dizziness 05/18/2023 Dysphagia Fibromyalgia Fibromyalgia Gastrocnemius equinus GERD (gastroesophageal reflux disease) Heart murmur Hematoma of right breast Hemiparesis ([facility]) Hemiparesis, right ([facility]) Hemorrhoid int/external hemorrhoids Hiatal hernia Iron deficiency Left foot pain 03/25/2023 Lower extremity edema Mood disorder ([facility]) mixed mood disorder OSMANY (obstructive sleep apnea) Osteoporosis ([facility]) Overactive bladder Pre-diabetes Primary hypertension ([facility]) 03/25/2023 PTSD (post-traumatic stress disorder) ([facility]) Restless leg Right knee pain Right sided weakness S/P bariatric surgery Shingles Slurred speech Stroke ([facility]) 2018 Tenosynovitis, de Quervain Thoracic [...] melatonin. She was last seen in the [facility] on June 24, 2023. Since [...] for short term insomnia and not for termite 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 insomnia. She is compliant on her download [...] was counseled on the risks of stroke, GA, and sudden with OSMANY, along with the [...] clinic: one year documented in this encounter [facility] 12-08-2023 History of Present illness Narrative Patient [...] Anxiety 05/18/2023 Bipolar disorder with severe depression ([facility]) 05/18/2023 Brain lesion Brain vascular malformation Chronic pain disorder Closed fracture of patella 02/04/2018 Colon polyps Constipation Degenerative cervical disc Degenerative lumbar disc Depression ([facility]) 05/18/2023 Diastolic dysfunction Dizziness 05/18/2023 Dysphagia Fibromyalgia Fibromyalgia Gastrocnemius equinus GERD (gastroesophageal reflux disease) Heart murmur Hematoma of right breast Hemiparesis ([facility]) Hemiparesis, right ([facility]) Hemorrhoid int/external hemorrhoids Hiatal hernia Iron deficiency Left foot pain 03/25/2023 Lower extremity edema Mood disorder ([facility]) mixed mood disorder OSMANY (obstructive sleep apnea) Osteoporosis ([facility]) Overactive bladder Pre-diabetes Primary hypertension ([facility]) 03/25/2023 PTSD (post-traumatic stress disorder) ([facility]) Restless leg Right knee pain Right sided weakness S/P bariatric surgery Shingles Slurred speech Stroke ([facility]) 2018 Tenosynovitis, de Quervain Thoracic [...] Review Audit Reviewed by Festus Baron MA (Steel Wool Machine Operator) on 12/08/23 at 1525 Medication Order Taking? Sig Documenting Provider Last Dose Status amLODIPine (Norvasc) 10 MG tablet [id number] Take 1 tablet (10 mg) by mouth Daily Adelaida Carrion NP Active biotin 5 MG tablet [id number] Pt taking OTC ([facility]) Historical ProviderMD Active Calcium Citrate-Vitamin D (CITRACAL + D PO) 13035809 Pt taking OTC ([facility]) Historical ProviderMD Active Cariprazine HCl (Vraylar) 4.5 MG capsule [id number] Take 4.5 mg by mouth Daily Active carvedilol (Coreg) 12.5 MG tablet [id number] Take 1 tablet (12.5 mg) by mouth in the morning and 1 tablet (12.5 mg) in the evening. Take with meals. Adelaida Carrion NP Active cetirizine (ZyrTEC) 10 MG tablet [id number] Take 1 tablet (10 mg) by mouth Daily Adelaida Carrion NP Active clonazePAM (KlonoPIN) 1 MG tablet [id number] Take 1 tablet (1 mg) by mouth 2 (two) times a day as needed for anxiety Do not start before October 16, 2023. Sonam Brown NP 11/15/23 2359 DULoxetine (Cymbalta) [address] capsule [id number] Take 60 mg by mouth in the morning and 60 mg before bedtime. Do not crush or chew.. Active fluconazole (Diflucan) 150 MG tablet [id number] 1 pill every 3 days for a total of 3 doses Adelaida Carrion NP Active fluticasone (Flonase) 50 MCG/ACT nasal spray [id number] Administer 2 sprays into each nostril Daily Adelaida Carrion NP 11/04/23 2359 gabapentin (Neurontin) 300 MG capsule [id number] Take 1 capsule (300 mg) by mouth in the morning and 1 capsule (300 mg) before bedtime. Sonam Brown NP Active losartan (Cozaar) 100 MG tablet [id number] Take 1 tablet (100 mg) by mouth Daily Adelaida Carrion NP Active Magnesium 400 MG capsule [id number] Pt taking OTC([facility]) Historical ProviderMD Active Melatonin 12 MG tablet [id number] Take 1 tablet by mouth at bedtime Active Multiple Vitamins-Minerals (BARIATRIC MULTIVITAMINS/IRON PO) [id number] Pt taking OTC (amazon) Historical Provider, Active nystatin (Mycostatin) 863684 UNIT/GM powder [id number] Apply 1 application topically in the morning and 1 application before bedtime. Adelaida Carrion NP Active omeprazole (PriLOSEC) [address] capsule [id number] Take 1 capsule (20 mg) by mouth in the morning. Take before meals. Adelaida Carrion NP Active rOPINIRole (Requip) 4 MG tablet [id number] Take 1 tablet (4 mg) by mouth at bedtime Sonam Brown NP Active spironolactone (Aldactone) 25 MG tablet [id number] Take 2 tablets (50 mg) by mouth Daily Adelaida Carrion NP Active tiZANidine (Zanaflex) 2 MG tablet [id number] Take 2 mg by mouth every 8 (eight) hours Adelaida Carrion NP Active traZODone (Desyrel) 150 MG tablet [id number] Take 150 mg by mouth at bedtime Active HPI AMS -Patient was admitted to [facility] from the [facility] on 08/24/2023 with acute respiratory failure and confusion thought to be secondary to metabolic encephalopathy. Patient denies any new hospital stays. -She was seen by Neurology who thought she had a toxic encephalopathy secondary to medication overuse. -She was monitored on LTME which did not show any evidence of seizures. -After she was discharged she had a short stay at the long-term facility on 09/03/2023 and she was discharged [...] of a difference besides with sewing. In 2016 she had slurred speech and right side [...] ankle and great toe bilaterally. Coordination Right: Bdcddn-ep-efra normal. Rapid alternating movement normal.Left: Bvwpyj-lv-jgqy normal. Rapid alternating movement normal. Gait Casual gait is normal including stance, stride, and arm swing. Motor Examination RUE Strength deltoid, biceps, triceps, wrist extensors, wrist extensors, wrist flexor, photographic engineer strength 5/5. LUE Strength deltoid, biceps, triceps, wrist extensors, wrist extensors, wrist flexor, photographic engineer strength 5/5. RLE Strength illopsoas, quadriceps, tibialis [...] not all inclusive. Patient was admitted to [facility] from the [facility] on 08/24/2023 with acute respiratory failure [...] of the brain in July 2019 showed xghu-zf-nqjwqkre white matter changes with the largest area [...] make further recommendations documented in this encounter [facility] 05-18-2023 History of Present illness Narrative Associated [...] (BARIATRIC MULTIVITAMINS/IRON PO) Bariatric Multivitamins/Iron nystatin (Mycostatin) 750328 UNIT/GM powder 1 application , Topical, 2 [...] Anxiety 05/18/2023 Bipolar disorder with severe depression ([facility]) 05/18/2023 Brain vascular malformation Chronic pain disorder Colon polyps Constipation Degenerative cervical disc Degenerative lumbar disc Depression ([facility]) 05/18/2023 Diastolic dysfunction Dizziness 05/18/2023 Dysphagia Fibromyalgia Gastrocnemius equinus GERD (gastroesophageal reflux disease) Heart murmur Hematoma of right breast Hemiparesis, right ([facility]) Hemorrhoid int/external hemorrhoids Hiatal hernia Iron deficiency Left foot pain 03/25/2023 Lower extremity edema Mood disorder ([facility]) mixed mood disorder OSMANY (obstructive sleep apnea) Osteoporosis ([facility]) Overactive bladder Pre-diabetes Primary hypertension ([facility]) 03/25/2023 PTSD (post-traumatic stress disorder) ([facility]) Restless leg Right knee pain Right sided weakness S/P bariatric surgery Shingles Slurred speech Stroke ([facility]) 2018 Tenosynovitis, de Quervain Thoracic [...] and prn documented in this encounter [facility] 03-23-2023 Procedure note [facility] 12-19-2022 Evaluation note Encounter Date Diagnosis Assessment Notes Dec, Skin candidiasis (ICD-10 - B37.2) Drink plenty fluids, get plenty of rest. Continue home medications as prescribed. Take the Diflucan as prescribed until gone. Follow-up with your family physician if no improvement in 2 to 3 days [email or web address] Other 08-17-2023 Discharge summary Author Eduardo barrett [facility] November 20, 2022 6:38am Note Date/Time November 20, 2022 6: 38am [facility] [address] [place] [address] Discharge Summary Signed Patient: Michelle Be MR#: [id number] : 1960 Acct:[id number] Age/Sex: 61 / F Adm Date: 3 Loc: 1S Room: [address] [place] [address]: Gaudencio Monk MD Copies to: EduardoMD Adelaida Flores, PHYSICAL MEDICINE TEACHER-C~ Providers Date of Discharge: 11/20/22 Discharging [...] at that time.? She reports moving to [place] from [place] in 2011 and was then diagnosed with bipolar disorder at [facility] in [place], where she still follows with a therapist.? Shereports that she has been with 7 therapists in the last 9 years and is currentlycompleting EMDR with her current therapist. Past hospitalizations: Her most recent hospitalization was 5 years ago [facility] in [place] for the same feeling she is experiencing [...] her , son and his girlfriend, and page hospitaldson.? Reports a situation in which they are attempting to seek custody of the grandson from the mother of the child.? She reports not feeling safe at homewith herself but feels safe when her family is home. Employment: Patient has not worked since 2010 due to her fibromyalgia.? 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 Relationships: Reports having people [...] self or stop treatment, but to call [facility], 911 or come to the nearest emergency [...] The patient was made aware of the / emergency services of the crisis center. She [...] Follow Up: [facility] [Outside] [facility] [Outside] ( operational risk manager: (Insert date/time here) Therapy:? (insert date/time [...] signed by Eduardo Monk MD> 11/20/22 0638 [facility] Work Phone: 1(677) 186-103708-16-2023 Progress note Author Eduardo barrett [facility] November 19, 2022 6:25am Note Date/Time November 19, 2022 6: 25am [facility] [address] [place] [address] Psychiatry Progress Note Signed Patient: Michelle Be MR#: [id number] : 1960 Acct:[id number] Age/Sex: 61 / F Adm Date: 3 Loc: Room: [address] [place] [address] Type : ADM IN Attending Dr: Gaudencio [...] signed by Eduardo Monk MD> 11/19/22 0625 [facility] Work Phone: 1(937) 685-516108-15-2023 Progress note Author Eduardo barrett [facility] November 18, 2022 11:01am Note Date/Time November 18, 2022 10 :11am [facility] [address] [place] [address] Psychiatry Progress Note Signed Patient: Michelle Be MR#: [id number] : 1960 Acct:[id number] Age/Sex: 61 / F Adm Date: 3 Loc: Room: [address] [place] [address] Type : ADM IN Attending Dr: Gaudencio [...] by requesting a schedule 2 referring to [place] for pain management specifically every 4-6 hours [...] 3 0958 Signed By: <Electronically signed by Eduadro Monk MD> 11/18/22 1101 <Electronically signed by MD DA Rangel> 11/18/22 1011 [facility] Work Phone: 1(855) 142-897008-14-2023 History and physical note Author Eduardo barrett [facility] November 17, 2022 12:48pm Note Date/Time November 17, 2022 12 :48pm [facility] [address] [place] [address] Psychiatry H&P Signed Patient: Michelle Be MR#: [id number] : 1960 Acct:[id number] Age/Sex: 61 / F Adm Date: 3 Loc: Room: [address] [place] [address] Type: ADM IN Attending Dr: Gaudencio Monk [...] at that time. She reports moving to [place] from [place] in 2011 and was then diagnosed with bipolar disorder at [facility] in [place], where she still follows with a therapist. Shereports that she has been with 7 therapists in the last 9 years and is currentlycompleting EMDR with her current therapist. Past hospitalizations: Her most recent hospitalization was 5 years ago [facility] in [place] for the same feeling she is experiencing [...] equal bilaterally. CN XII: Tongue protrusion midline [facility] Medical History (Updated 11/17/22 @ 10:42 [...] Meds Medications and Allergies Allergies levetiracetam [From Kera] Allergy (Verified 11/17/22 02:16) Unknown Reaction milnacipran [...] Eduardo Monk MD> 11/17/22 1248 [facility] Work Phone: 1(909) 415-916103-23-2023 NoteCONSULTATION CONSULTATION DATE: 06/26/2022 To: Nurse Sheyla [...] L5-S1 facet joint injection under fluoroscopic guidance.[id number] NotePROCEDURE: XR SHOULDER RT 2V or > [...] Electronically authenticated by: KINGSLEY CLEMENTS Date: 2022-05-09 09:21[facility]01-23-2023 NotePROCEDURE: XR WRIST LT MIN 3 [...] Electronically authenticated by: KINGSLEY CLEMENTS Date: 2022-04-28 13:31[facility]12-29-2022 NoteCONSULTATION CONSULTATION DATE: 04/03/2022 HISTORY OF [...] her in three months, unless otherwise indicated.[facility] [id number] NoteCONSULTATION CONSULTATION DATE: 01/02/2022 This is a [...] [facility] in [place] for the compounded cream. She needs a [...] in three months' time unless otherwise indicated.[facility] [id number] NotePROCEDURE: XR ANKLE RT MIN 3 VIEWS, [...] Electronically authenticated by: KINGSLEY CLEMENTS Date: 2022-01-01 13:11[facility]09-28-2022 NotePROCEDURE: XR ANKLE RT MIN 3 [...] Electronically authenticated by: KINGSLEY CLEMENTS Date: 2022-01-01 13:11[facility]08-18-2022 NotePROCEDURE: XR FOOT RT MIN 3 VIEWS HISTORY: Pain in right foot , chronic COMPARISON: XR foot right 2020 FINDINGS: BONES:No fracture, dislocation, bone lesion. Small calcaneal degenerative enthesophytes. SOFT TISSUES:No visible soft tissue swelling. EFFUSION:None visible. OTHER: Negative. IMPRESSION: 1. No acute bone abnormality or significant degenerative joint disease. Electronically authenticated by: KINGSLEY CLEMENTS Date: 2021-11-21 16:13[facility]06-30-2022 NoteCONSULTATION CONSULTATION DATE: 10/03/2021 This is [...] patient agrees with the plan of care. [facility] Signed and Approved by: ZELDA MCDANIEL . 10/10/2021 10:22:00[facility] Diagnosis Onset Date Resolution Status Allergies acute Bipolar 2 disorder acute Hypertension acute Morbid obesity with BMI of 45.0-49.9, adult acute OSMANY (obstructive sleep apnea) acute Restless legs syndrome acute [facility] Work Phone: Evaluation noteNo InformationNort Aura XM Other Evaluation noteNo assessment information available [facility] Work Phone: Evaluation note* Diagnosis [...] in soft tissues of limb Primary hypertension (CMS/HCC) Unspecified essential hypertension Class 3 severe obesity due to excess calories without serious comorbidity with body mass index (BMI) of 45.0 to 49.9 in adult (CMS/HCC) Encounter for annual wellness visit (AWV) in Medicare patient- Primary OSMANY (obstructive sleep apnea) Obstructive sleep apnea (adult) (pediatric) Chronic pain disorder Chronic pain syndrome Gastroesophageal reflux disease, unspecified whether esophagitis present Overactive bladder Hypertonicity of bladder Lower extremity edema Edema Pre-diabetes Other abnormal glucose Morbid obesity ([facility]) Morbid obesity Yeast infection of the skin Candidiasis of skin and nails Tobacco dependence Tobacco use disorder Mood disorder ([facility]) Unspecified episodic mood disorder Primary hypertension ([facility]) Unspecified essential hypertension Left hip pain Pain in joint, pelvic region and thigh Open wound of anterior abdominal wall, initial encounter Primary hypertension ([facility])- Primary Unspecified essential hypertension Yeast infection of the skin Candidiasis of skin and nails Morbid obesity ([facility]) Morbid obesity Primary hypertension ([facility])- Primary Unspecified essential hypertension Encounter for screening mammogram for malignant neoplasm of breast Gastroesophageal reflux disease, unspecified whether esophagitis present Acute gout of right foot, unspecified cause Osteoporosis, unspecified osteoporosis type, unspecified pathological fracture presence ([facility]) Morbid obesity ([facility]) Morbid obesity Pre-diabetes Other abnormal glucose Anemia, unspecified type Vitamin deficiency Unspecified vitamin deficiency Post-viral cough syndrome Primary hypertension ([facility])- Primary Unspecified essential hypertension Allergic rhinitis, unspecified Acute cough Morbid obesity ([facility]) Morbid obesity Former cigarette smoker Personal history of tobacco use, presenting hazards to health Toxic metabolic encephalopathy- Primary Hemiparesis, right ([facility]) Unspecified hemiplegia affecting unspecified side Acute respiratory failure with hypoxia ([facility]) Heart murmur Undiagnosed cardiac murmurs Primary hypertension ([facility]) Unspecified essential hypertension Morbid obesity ([facility]) Morbid obesity Bipolar disorder with severe depression ([facility]) Slurred speech Other speech disturbance Bilateral lower extremity edema- Primary Primary hypertension ([facility]) Unspecified essential hypertension Lower extremity edema Edema Essential (primary) hypertension ([facility]) Unspecified essential hypertension Gastro-esophageal reflux disease without esophagitis Allergic rhinitis, unspecified Bilateral lower extremity edema- Primary Morbid (severe) obesity due to excess calories ([facility]) Body mass index (BMI) 45.0-49.9, adult ([facility]) Pre-diabetes Other abnormal glucose Bilateral lower extremity edema- Primary Essential (primary) hypertension ([facility]) Unspecified essential hypertension Allergic rhinitis, unspecified OSMANY (obstructive sleep apnea) Obstructive sleep apnea (adult) (pediatric) Primary hypertension (CMS/HCC) Unspecified essential hypertension Morbid obesity (CMS/HCC) Morbid obesity Acute cystitis without hematuria- Primary Tobacco dependence Tobacco use disorder Needs flu shot Need for prophylactic vaccination and inoculation against influenza Morbid obesity ([facility]/HCC) Morbid obesity documented in this encounter [facility] HealthcareEvaluation note* Diagnosis Left foot pain- Primary Pain in soft tissues of limb Primary hypertension ([facility]) Unspecified essential hypertension Class 3 severe obesity due to excess calories without serious comorbidity with body mass index (BMI) of 45.0 to 49.9 in adult ([facility]) Encounter for annual wellness visit [...] Tobacco dependence Tobacco use disorder Mood disorder ([facility]) Unspecified episodic mood disorder Primary hypertension ([facility]) Unspecified essential hypertension Left hip pain Pain in joint, pelvic region and thigh Open wound of anterior abdominal wall, initial encounter Primary hypertension ([facility]/HCC)- Primary Unspecified essential hypertension Yeast infection of the skin Candidiasis of skin and nails Morbid obesity ([facility]/HCC) Morbid obesity Primary hypertension ([facility]/HCC)- Primary Unspecified essential hypertension Encounter for screening mammogram for malignant neoplasm of breast Gastroesophageal reflux disease, unspecified whether esophagitis present Acute gout of right foot, unspecified cause Osteoporosis, unspecified osteoporosis type, unspecified pathological fracture presence ([facility]) Morbid obesity ([facility]) Morbid obesity Pre-diabetes Other abnormal glucose Anemia, unspecified type Vitamin deficiency Unspecified vitamin deficiency Post-viral cough syndrome Primary hypertension ([facility]/HCC)- Primary Unspecified essential hypertension Allergic rhinitis, unspecified Acute cough Morbid obesity ([facility]) Morbid obesity Former cigarette smoker Personal history of tobacco use, presenting hazards to health Toxic metabolic encephalopathy- Primary Hemiparesis, right ([facility]) Unspecified hemiplegia affecting unspecified side Acute respiratory failure with hypoxia ([facility]) Heart murmur Undiagnosed cardiac murmurs Primary hypertension ([facility]) Unspecified essential hypertension Morbid obesity ([facility]/HCC) Morbid obesity Bipolar disorder with severe depression ([facility]) Slurred speech Other speech disturbance Bilateral lower extremity edema- Primary Primary hypertension ([facility]) Unspecified essential hypertension Lower extremity edema Edema Essential (primary) hypertension ([facility]) Unspecified essential hypertension Gastro-esophageal reflux disease without esophagitis Allergic rhinitis, unspecified Bilateral lower extremity edema- Primary Morbid (severe) obesity due to excess calories ([facility]) Body mass index (BMI) 45.0-49.9, adult ([facility]) Pre-diabetes Other abnormal glucose Bilateral lower extremity edema- Primary Essential (primary) hypertension ([facility]) Unspecified essential hypertension Allergic rhinitis, unspecified OSMANY (obstructive sleep apnea) Obstructive sleep apnea (adult) (pediatric) Primary hypertension ([facility]) Unspecified essential hypertension Morbid obesity ([facility]) Morbid obesity Acute cystitis without hematuria- Primary Tobacco dependence Tobacco use disorder Needs flu shot Need for prophylactic vaccination and inoculation against influenza Morbid obesity ([facility]) Morbid obesity Restless leg Restless legs syndrome (RLS) documented in this encounter [facility] HealthcareEvaluation note* Diagnosis Left foot pain- Primary Pain in soft tissues of limb Primary hypertension ([facility]) Unspecified essential hypertension Class 3 severe obesity due to excess calories without serious comorbidity with body mass index (BMI) of 45.0 to 49.9 in adult ([facility]) Encounter for annual wellness visit (AWV) in Medicare patient- Primary OSMANY (obstructive sleep apnea) Obstructive sleep apnea (adult) (pediatric) Chronic pain disorder Chronic pain syndrome Gastroesophageal reflux disease, unspecified whether esophagitis present Overactive bladder Hypertonicity of bladder Lower extremity edema Edema Pre-diabetes Other abnormal glucose Morbid obesity ([facility]) Morbid obesity Yeast infection of the skin Candidiasis of skin and nails Tobacco dependence Tobacco use disorder Mood disorder ([facility]) Unspecified episodic mood disorder Primary hypertension ([facility]) Unspecified essential hypertension Left hip pain Pain in joint, pelvic region and thigh Open wound of anterior abdominal wall, initial encounter Primary hypertension ([facility])- Primary Unspecified essential hypertension Yeast infection of the skin Candidiasis of skin and nails Morbid obesity ([facility]) Morbid obesity Primary hypertension ([facility])- Primary Unspecified essential hypertension Encounter for screening mammogram for malignant neoplasm of breast Gastroesophageal reflux disease, unspecified whether esophagitis present Acute gout of right foot, unspecified cause Osteoporosis, unspecified osteoporosis type, unspecified pathological fracture presence ([facility]) Morbid obesity ([facility]) Morbid obesity Pre-diabetes Other abnormal glucose Anemia, unspecified type Vitamin deficiency Unspecified vitamin deficiency Post-viral cough syndrome Primary hypertension ([facility])- Primary Unspecified essential hypertension Allergic rhinitis, unspecified Acute cough Morbid obesity ([facility]) Morbid obesity Former cigarette smoker Personal history of tobacco use, presenting hazards to health Toxic metabolic encephalopathy- Primary Hemiparesis, right ([facility]) Unspecified hemiplegia affecting unspecified side Acute respiratory failure with hypoxia ([facility]) Heart murmur Undiagnosed cardiac murmurs Primary hypertension ([facility]) Unspecified essential hypertension Morbid obesity ([facility]) Morbid obesity Bipolar disorder with severe depression ([facility]) Slurred speech Other speech disturbance Bilateral lower extremity edema- Primary Primary hypertension ([facility]) Unspecified essential hypertension Lower extremity edema Edema Essential (primary) hypertension ([facility]) Unspecified essential hypertension Gastro-esophageal reflux disease without esophagitis Allergic rhinitis, unspecified Bilateral lower extremity edema- Primary Morbid (severe) obesity due to excess calories ([facility]) Body mass index (BMI) 45.0-49.9, adult ([facility]) Pre-diabetes Other abnormal glucose Bilateral lower extremity edema- Primary Essential (primary) hypertension ([facility]) Unspecified essential hypertension Allergic rhinitis, unspecified OSMANY (obstructive sleep apnea) Obstructive sleep apnea (adult) (pediatric) Primary hypertension ([facility]) Unspecified essential hypertension Morbid obesity ([facility]) Morbid obesity Acute cystitis without hematuria- Primary Tobacco dependence Tobacco use disorder Needs flu shot Need for prophylactic vaccination and inoculation against influenza Morbid obesity ([facility]) Morbid obesity Well woman exam with routine gynecological exam- Primary Routine gynecological examination Morbid obesity ([facility]) Morbid obesity documented in this encounter [facility] HealthcareEvaluation note* Diagnosis Left foot pain- Primary Pain in soft tissues of limb Primary hypertension ([facility]) Unspecified essential hypertension Class 3 severe obesity due to excess calories without serious comorbidity with body mass index (BMI) of 45.0 to 49.9 in adult ([facility]) Encounter for annual wellness visit (AWV) in Medicare patient- Primary OSMANY (obstructive sleep apnea) Obstructive sleep apnea (adult) (pediatric) Chronic pain disorder Chronic pain syndrome Gastroesophageal reflux disease, unspecified whether esophagitis present Overactive bladder Hypertonicity of bladder Lower extremity edema Edema Pre-diabetes Other abnormal glucose Morbid obesity ([facility]) Morbid obesity Yeast infection of the skin Candidiasis of skin and nails Tobacco dependence Tobacco use disorder Mood disorder ([facility]) Unspecified episodic mood disorder Primary hypertension ([facility]) Unspecified essential hypertension Left hip pain Pain in joint, pelvic region and thigh Open wound of anterior abdominal wall, initial encounter Primary hypertension ([facility])- Primary Unspecified essential hypertension Yeast infection of the skin Candidiasis of skin and nails Morbid obesity ([facility]) Morbid obesity Primary hypertension ([facility])- Primary Unspecified essential hypertension Encounter for screening mammogram for malignant neoplasm of breast Gastroesophageal reflux disease, unspecified whether esophagitis present Acute gout of right foot, unspecified cause Osteoporosis, unspecified osteoporosis type, unspecified pathological fracture presence ([facility]) Morbid obesity ([facility]) Morbid obesity Pre-diabetes Other abnormal glucose Anemia, unspecified type Vitamin deficiency Unspecified vitamin deficiency Post-viral cough syndrome Primary hypertension ([facility])- Primary Unspecified essential hypertension Allergic rhinitis, unspecified Acute cough Morbid obesity ([facility]) Morbid obesity Former cigarette smoker Personal history of tobacco use, presenting hazards to health Toxic metabolic encephalopathy- Primary Hemiparesis, right ([facility]) Unspecified hemiplegia affecting unspecified side Acute respiratory failure with hypoxia ([facility]) Heart murmur Undiagnosed cardiac murmurs Primary hypertension ([facility]) Unspecified essential hypertension Morbid obesity ([facility]) Morbid obesity Bipolar disorder with severe depression ([facility]) Slurred speech Other speech disturbance Bilateral lower extremity edema- Primary Primary hypertension ([facility]) Unspecified essential hypertension Lower extremity edema Edema Essential (primary) hypertension ([facility]) Unspecified essential hypertension Gastro-esophageal reflux disease without esophagitis Allergic rhinitis, unspecified Bilateral lower extremity edema- Primary Morbid (severe) obesity due to excess calories ([facility]) Body mass index (BMI) 45.0-49.9, adult ([facility]) Pre-diabetes Other abnormal glucose Bilateral lower extremity edema- Primary Essential (primary) hypertension ([facility]) Unspecified essential hypertension Allergic rhinitis, unspecified OSMANY (obstructive sleep apnea) Obstructive sleep apnea (adult) (pediatric) Primary hypertension ([facility]) Unspecified essential hypertension Morbid obesity ([facility]) Morbid obesity Acute cystitis without hematuria- Primary Tobacco dependence Tobacco use disorder Needs flu shot Need for prophylactic vaccination and inoculation against influenza Morbid obesity ([facility]) Morbid obesity Well woman exam with routine gynecological exam- Primary Routine gynecological examination Morbid obesity ([facility]) Morbid obesity Essential (primary) hypertension ([facility]) Unspecified essential hypertension Allergic rhinitis, unspecified documented in this encounter [facility] HealthcareEvaluation note* Diagnosis Left foot pain- Primary Pain in soft tissues of limb Primary hypertension ([facility]) Unspecified essential hypertension Class 3 severe obesity due to excess calories without serious comorbidity with body mass index (BMI) of 45.0 to 49.9 in adult ([facility]) Encounter for annual wellness visit (AWV) in Medicare patient- Primary OSMANY (obstructive sleep apnea) Obstructive sleep apnea (adult) (pediatric) Chronic pain disorder Chronic pain syndrome Gastroesophageal reflux disease, unspecified whether esophagitis present Overactive bladder Hypertonicity of bladder Lower extremity edema Edema Pre-diabetes Other abnormal glucose Morbid obesity ([facility]) Morbid obesity Yeast infection of the skin Candidiasis of skin and nails Tobacco dependence Tobacco use disorder Mood disorder ([facility]) Unspecified episodic mood disorder Primary hypertension ([facility]) Unspecified essential hypertension Left hip pain Pain in joint, pelvic region and thigh Open wound of anterior abdominal wall, initial encounter Primary hypertension ([facility])- Primary Unspecified essential hypertension Yeast infection of the skin Candidiasis of skin and nails Morbid obesity ([facility]) Morbid obesity Primary hypertension ([facility])- Primary Unspecified essential hypertension Encounter for screening mammogram for malignant neoplasm of breast Gastroesophageal reflux disease, unspecified whether esophagitis present Acute gout of right foot, unspecified cause Osteoporosis, unspecified osteoporosis type, unspecified pathological fracture presence ([facility]) Morbid obesity ([facility]) Morbid obesity Pre-diabetes Other abnormal glucose Anemia, unspecified type Vitamin deficiency Unspecified vitamin deficiency Post-viral cough syndrome Primary hypertension ([facility])- Primary Unspecified essential hypertension Allergic rhinitis, unspecified Acute cough Morbid obesity ([facility]) Morbid obesity Former cigarette smoker Personal history of tobacco use, presenting hazards to health Toxic metabolic encephalopathy- Primary Hemiparesis, right ([facility]) Unspecified hemiplegia affecting unspecified side Acute respiratory failure with hypoxia ([facility]) Heart murmur Undiagnosed cardiac murmurs Primary hypertension ([facility]) Unspecified essential hypertension Morbid obesity ([facility]) Morbid obesity Bipolar disorder with severe depression ([facility]) Slurred speech Other speech disturbance Bilateral lower extremity edema- Primary Primary hypertension ([facility]) Unspecified essential hypertension Lower extremity edema Edema Essential (primary) hypertension ([facility]) Unspecified essential hypertension Gastro-esophageal reflux disease without esophagitis Allergic rhinitis, unspecified Bilateral lower extremity edema- Primary Morbid (severe) obesity due to excess calories ([facility]) Body mass index (BMI) 45.0-49.9, adult ([facility]) Pre-diabetes Other abnormal glucose Bilateral lower extremity edema- Primary Essential (primary) hypertension ([facility]) Unspecified essential hypertension Allergic rhinitis, unspecified OSMANY (obstructive sleep apnea) Obstructive sleep apnea (adult) (pediatric) Primary hypertension ([facility]) Unspecified essential hypertension Morbid obesity ([facility]) Morbid obesity Acute cystitis without hematuria- Primary Tobacco dependence Tobacco use disorder Needs flu shot Need for prophylactic vaccination and inoculation against influenza Morbid obesity ([facility]) Morbid obesity Well woman exam with routine gynecological exam- Primary Routine gynecological examination Morbid obesity ([facility]) Morbid obesity Allergic rhinitis, unspecified documented in this encounter [facility] HealthcareEvaluation note* Diagnosis Left foot pain- Primary Pain in soft tissues of limb Primary hypertension ([facility]) Unspecified essential hypertension Class 3 severe obesity due to excess calories without serious comorbidity with body mass index (BMI) of 45.0 to 49.9 in adult ([facility]) Encounter for annual wellness visit (AWV) in Medicare patient- Primary OSMANY (obstructive sleep apnea) Obstructive sleep apnea (adult) (pediatric) Chronic pain disorder Chronic pain syndrome Gastroesophageal reflux disease, unspecified whether esophagitis present Overactive bladder Hypertonicity of bladder Lower extremity edema Edema Pre-diabetes Other abnormal glucose Morbid obesity ([facility]) Morbid obesity Yeast infection of the skin Candidiasis of skin and nails Tobacco dependence Tobacco use disorder Mood disorder ([facility]) Unspecified episodic mood disorder Primary hypertension ([facility]) Unspecified essential hypertension Left hip pain Pain in joint, pelvic region and thigh Open wound of anterior abdominal wall, initial encounter Primary hypertension ([facility])- Primary Unspecified essential hypertension Yeast infection of the skin Candidiasis of skin and nails Morbid obesity ([facility]) Morbid obesity Primary hypertension ([facility])- Primary Unspecified essential hypertension Encounter for screening mammogram for malignant neoplasm of breast Gastroesophageal reflux disease, unspecified whether esophagitis present Acute gout of right foot, unspecified cause Osteoporosis, unspecified osteoporosis type, unspecified pathological fracture presence ([facility]) Morbid obesity ([facility]) Morbid obesity Pre-diabetes Other abnormal glucose Anemia, unspecified type Vitamin deficiency Unspecified vitamin deficiency Post-viral cough syndrome Primary hypertension ([facility])- Primary Unspecified essential hypertension Allergic rhinitis, unspecified Acute cough Morbid obesity ([facility]) Morbid obesity Former cigarette smoker Personal history of tobacco use, presenting hazards to health Toxic metabolic encephalopathy- Primary Hemiparesis, right ([facility]) Unspecified hemiplegia affecting unspecified side Acute respiratory failure with hypoxia ([facility] [facility]) Heart murmur Undiagnosed cardiac murmurs Primary hypertension ([facility]) Unspecified essential hypertension Morbid obesity ([facility]) Morbid obesity Bipolar disorder with severe depression ([facility]) Slurred speech Other speech disturbance Bilateral lower extremity edema- Primary Primary hypertension ([facility]) Unspecified essential hypertension Lower extremity edema Edema Essential (primary) hypertension ([facility]) Unspecified essential hypertension Gastro-esophageal reflux disease without esophagitis Allergic rhinitis, unspecified Bilateral lower extremity edema- Primary Morbid (severe) obesity due to excess calories ([facility]) Body mass index (BMI) 45.0-49.9, adult ([facility] [place]) Pre-diabetes Other abnormal glucose Bilateral lower extremity edema- Primary Essential (primary) hypertension ([facility]) Unspecified essential hypertension Allergic rhinitis, unspecified OSMANY (obstructive sleep apnea) Obstructive sleep apnea (adult) (pediatric) Primary hypertension ([facility]) Unspecified essential hypertension Morbid obesity ([facility]) Morbid obesity Acute cystitis without hematuria- Primary Tobacco dependence Tobacco use disorder Needs flu shot Need for prophylactic vaccination and inoculation against influenza Morbid obesity ([facility]) Morbid obesity Well woman exam with routine gynecological exam- Primary Routine gynecological examination Morbid obesity ([facility]) Morbid obesity Yeast infection of the skin Candidiasis of skin and nails documented in this encounter [facility] Diagnosis Left foot pain- Primary Pain in soft tissues of limb Primary hypertension ([facility]) Unspecified essential hypertension Class 3 severe obesity due to excess calories without serious comorbidity with body mass index (BMI) of 45.0 to 49.9 in adult ([facility]) Encounter for annual wellness visit (AWV) in Medicare patient- Primary OSMANY (obstructive sleep apnea) Obstructive sleep apnea (adult) (pediatric) Chronic pain disorder Chronic pain syndrome Gastroesophageal reflux disease, unspecified whether esophagitis present Overactive bladder Hypertonicity of bladder Lower extremity edema Edema Pre-diabetes Other abnormal glucose Morbid obesity ([facility]) Morbid obesity Yeast infection of the skin Candidiasis of skin and nails Tobacco dependence Tobacco use disorder Mood disorder ([facility]) Unspecified episodic mood disorder Primary hypertension ([facility]) Unspecified essential hypertension Left hip pain Pain in joint, pelvic region and thigh Open wound of anterior abdominal wall, initial encounter Primary hypertension ([facility])- Primary Unspecified essential hypertension Yeast infection of the skin Candidiasis of skin and nails Morbid obesity ([facility]) Morbid obesity Primary hypertension ([facility])- Primary Unspecified essential hypertension Encounter for screening mammogram for malignant neoplasm of breast Gastroesophageal reflux disease, unspecified whether esophagitis present Acute gout of right foot, unspecified cause Osteoporosis, unspecified osteoporosis type, unspecified pathological fracture presence ([facility]) Morbid obesity ([facility]) Morbid obesity Pre-diabetes Other abnormal glucose Anemia, unspecified type Vitamin deficiency Unspecified vitamin deficiency Post-viral cough syndrome Primary hypertension ([facility])- Primary Unspecified essential hypertension Allergic rhinitis, unspecified Acute cough Morbid obesity ([facility]) Morbid obesity Former cigarette smoker Personal history of tobacco use, presenting hazards to health Toxic metabolic encephalopathy- Primary Hemiparesis, right ([facility]) Unspecified hemiplegia affecting unspecified side Acute respiratory failure with hypoxia ([facility]) Heart murmur Undiagnosed cardiac murmurs Primary hypertension ([facility] Unspecified essential hypertension Morbid obesity ([facility]) Morbid obesity Bipolar disorder with severe depression ([facility]) Slurred speech Other speech disturbance Bilateral lower extremity edema- Primary Primary hypertension ([facility]) Unspecified essential hypertension Lower extremity edema Edema Essential (primary) hypertension ([facility]) Unspecified essential hypertension Gastro-esophageal reflux disease without esophagitis Allergic rhinitis, unspecified Bilateral lower extremity edema- Primary Morbid (severe) obesity due to excess calories ([facility]) Body mass index (BMI) 45.0-49.9, adult ([facility]) Pre-diabetes Other abnormal glucose Bilateral lower extremity edema- Primary Essential (primary) hypertension ([facility]) Unspecified essential hypertension Allergic rhinitis, unspecified OSMANY (obstructive sleep apnea) Obstructive sleep apnea (adult) (pediatric) Primary hypertension ([facility]) Unspecified essential hypertension Morbid obesity ([facility]) Morbid obesity Acute cystitis without hematuria- Primary Tobacco dependence Tobacco use disorder Needs flu shot Need for prophylactic vaccination and inoculation against influenza Morbid obesity ([facility]/HCC) Morbid obesity Well woman exam with routine gynecological exam- Primary Routine gynecological examination Morbid obesity ([facility]/HCC) Morbid obesity Metabolic encephalopathy- Primary OSMANY (obstructive sleep apnea) Obstructive sleep apnea (adult) (pediatric) Restless leg Restless legs syndrome (RLS) 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 (CMS/HCC) Degeneration of intervertebral disc of lumbar region with discogenic back pain and lower extremity pain Memory change Memory loss documented in this encounter [facility]* Diagnosis Left foot pain- Primary Pain in soft tissues of limb Primary hypertension (CMS/HCC) Unspecified essential hypertension Class 3 severe obesity due to excess calories without serious comorbidity with body mass index (BMI) of 45.0 to 49.9 in adult ([facility]) Encounter for annual wellness visit [...] Tobacco dependence Tobacco use disorder Mood disorder ([facility]) Unspecified episodic mood disorder Primary hypertension (CMS/HCC) [...] unspecified osteoporosis type, unspecified pathological fracture presence ([facility]) Morbid obesity (CMS/HCC) Morbid obesity Pre-diabetes Other abnormal glucose Anemia, unspecified type Vitamin deficiency Unspecified vitamin deficiency Post-viral cough syndrome Primary hypertension (CMS/HCC)- Primary Unspecified essential hypertension Allergic rhinitis, unspecified Acute cough Morbid obesity (CMS/HCC) Morbid obesity Former cigarette smoker Personal history of tobacco use, presenting hazards to health Toxic metabolic encephalopathy- Primary Hemiparesis, right ([facility]) Unspecified hemiplegia affecting unspecified side Acute respiratory failure with hypoxia (CMS/[facility]) Heart murmur Undiagnosed cardiac murmurs Primary hypertension (CMS/HCC) Unspecified essential hypertension Morbid obesity (CMS/HCC) Morbid obesity Bipolar disorder with severe depression (CMS/[facility]) Slurred speech Other speech disturbance Bilateral lower extremity edema- Primary Primary hypertension (CMS/HCC) Unspecified essential hypertension Lower extremity edema Edema Essential (primary) hypertension ([facility]) Unspecified essential hypertension Gastro-esophageal reflux disease without esophagitis Allergic rhinitis, unspecified Bilateral lower extremity edema- Primary Morbid (severe) obesity due to excess calories ([facility]) Body mass index (BMI) 45.0-49.9, adult ([facility]) Pre-diabetes Other abnormal glucose Bilateral lower extremity edema- Primary Essential (primary) hypertension ([facility]) Unspecified essential hypertension Allergic rhinitis, unspecified OSMANY (obstructive sleep apnea) Obstructive sleep apnea (adult) (pediatric) Primary hypertension ([facility]) Unspecified essential hypertension Morbid obesity ([facility]) Morbid obesity Acute cystitis without hematuria- Primary Tobacco dependence Tobacco use disorder Needs flu shot Need for prophylactic vaccination and inoculation against influenza Morbid obesity ([facility]) Morbid obesity Well woman exam with routine gynecological exam- Primary Routine gynecological examination Morbid obesity ([facility]) Morbid obesity Altered mental status, unspecified altered mental status type- Primary Restless leg Restless legs syndrome (RLS) 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[facility]) OSMANY (obstructive sleep apnea) Obstructive sleep apnea (adult) (pediatric) documented in this encounter [facility]* Diagnosis Left foot pain- Primary Pain in soft tissues of limb Primary hypertension ([facility]) Unspecified essential hypertension Class 3 severe obesity due to excess calories without serious comorbidity with body mass index (BMI) of 45.0 to 49.9 in adult ([facility]) Encounter for annual wellness visit (AWV) in Medicare patient- Primary OSMANY (obstructive sleep apnea) Obstructive sleep apnea (adult) (pediatric) Chronic pain disorder Chronic pain syndrome Gastroesophageal reflux disease, unspecified whether esophagitis present Overactive bladder Hypertonicity of bladder Lower extremity edema Edema Pre-diabetes Other abnormal glucose Morbid obesity ([facility]) Morbid obesity Yeast infection of the skin Candidiasis of skin and nails Tobacco dependence Tobacco use disorder Mood disorder ([facility]) Unspecified episodic mood disorder Primary hypertension ([facility]) Unspecified essential hypertension Left hip pain Pain in joint, pelvic region and thigh Open wound of anterior abdominal wall, initial encounter Primary hypertension ([facility])- Primary Unspecified essential hypertension Yeast infection of the skin Candidiasis of skin and nails Morbid obesity ([facility]) Morbid obesity Primary hypertension ([facility])- Primary Unspecified essential hypertension Encounter for screening mammogram for malignant neoplasm of breast Gastroesophageal reflux disease, unspecified whether esophagitis present Acute gout of right foot, unspecified cause Osteoporosis, unspecified osteoporosis type, unspecified pathological fracture presence ([facility]) Morbid obesity ([facility]) Morbid obesity Pre-diabetes Other abnormal glucose Anemia, unspecified type Vitamin deficiency Unspecified vitamin deficiency Post-viral cough syndrome Primary hypertension ([facility])- Primary Unspecified essential hypertension Allergic rhinitis, unspecified Acute cough Morbid obesity ([facility]) Morbid obesity Former cigarette smoker Personal history of tobacco use, presenting hazards to health Toxic metabolic encephalopathy- Primary Hemiparesis, right ([facility]) Unspecified hemiplegia affecting unspecified side Acute respiratory failure with hypoxia ([facility]) Heart murmur Undiagnosed cardiac murmurs Primary hypertension ([facility]) Unspecified essential hypertension Morbid obesity ([facility]) Morbid obesity Bipolar disorder with severe depression ([facility]) Slurred speech Other speech disturbance Bilateral lower extremity edema- Primary Primary hypertension ([facility]) Unspecified essential hypertension Lower extremity edema Edema Essential (primary) hypertension ([facility]) Unspecified essential hypertension Gastro-esophageal reflux disease without esophagitis Allergic rhinitis, unspecified Bilateral lower extremity edema- Primary Morbid (severe) obesity due to excess calories ([facility]) Body mass index (BMI) 45.0-49.9, adult ([facility]) Pre-diabetes Other abnormal glucose Bilateral lower extremity edema- Primary Essential (primary) hypertension ([facility]) Unspecified essential hypertension Allergic rhinitis, unspecified OSMANY (obstructive sleep apnea) Obstructive sleep apnea (adult) (pediatric) Primary hypertension ([facility]) Unspecified essential hypertension Morbid obesity ([facility]) Morbid obesity Acute cystitis without hematuria- Primary Tobacco dependence Tobacco use disorder Needs flu shot Need for prophylactic vaccination and inoculation against influenza Morbid obesity ([facility]) Morbid obesity Well woman exam with routine gynecological exam- Primary Routine gynecological examination Morbid obesity ([facility]) Morbid obesity Altered mental status, unspecified altered mental status type- Primary Memory change Memory loss Concentration deficit 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 ([facility]) PTSD (post-traumatic stress disorder) ([facility]) Posttraumatic stress disorder Bipolar affective disorder, remission status unspecified ([facility]) Family history of dementia Family history of [...] Edema Pre-diabetes Other abnormal glucose Morbid obesity ([facility]/HCC) Morbid obesity Yeast infection of the skin Candidiasis of skin and nails Tobacco dependence Tobacco use disorder Mood disorder ([facility]) Unspecified episodic mood disorder Primary hypertension ([facility]) Unspecified essential hypertension Left hip pain Pain in joint, pelvic region and thigh Open wound of anterior abdominal wall, initial encounter Primary hypertension ([facility])- Primary Unspecified essential hypertension Yeast infection of the skin Candidiasis of skin and nails Morbid obesity ([facility]) Morbid obesity Primary hypertension ([facility])- Primary Unspecified essential hypertension Allergic rhinitis, unspecified Acute cough Morbid obesity ([facility]) Morbid obesity Former cigarette smoker Personal history of tobacco use, presenting hazards to health Toxic metabolic encephalopathy- Primary Hemiparesis, right ([facility]) Unspecified hemiplegia affecting unspecified side Acute respiratory failure with hypoxia ([facility]) Heart murmur Undiagnosed cardiac murmurs Primary hypertension ([facility]) Unspecified essential hypertension Morbid obesity ([facility]) Morbid obesity Bipolar disorder with severe depression ([facility]) Slurred speech Other speech disturbance Bilateral lower extremity edema- Primary Primary hypertension ([facility]) Unspecified essential hypertension Lower extremity edema Edema Essential (primary) hypertension ([facility]) Unspecified essential hypertension Gastro-esophageal reflux disease without esophagitis Allergic rhinitis, unspecified Bilateral lower extremity edema- Primary Morbid (severe) obesity due to excess calories ([facility]) Body mass index (BMI) 45.0-49.9, adult ([facility]) Pre-diabetes Other abnormal glucose Bilateral lower extremity edema- Primary Essential (primary) hypertension ([facility]) Unspecified essential hypertension Allergic rhinitis, unspecified OSMANY (obstructive sleep apnea) Obstructive sleep apnea (adult) (pediatric) Primary hypertension ([facility]) Unspecified essential hypertension Morbid obesity ([facility]) Morbid obesity Acute cystitis without hematuria- Primary Tobacco dependence Tobacco use disorder Needs flu shot Need for prophylactic vaccination and inoculation against influenza Morbid obesity ([facility]/HCC) Morbid obesity Well woman exam with routine gynecological exam- Primary Routine gynecological examination Morbid obesity ([facility]/HCC) Morbid obesity Restless leg Restless legs syndrome (RLS) Metabolic encephalopathy- Primary OSMANY (obstructive sleep apnea) Obstructive sleep apnea (adult) (pediatric) Morbid obesity ([facility]/HCC) Morbid obesity Bilateral lower extremity edema Tobacco dependence Tobacco use disorder Bipolar disorder with severe depression ([facility]/HCC) At risk for polypharmacy Anxiety Anxiety [...] (CMS/HCC) Unspecified episodic mood disorder Primary hypertension ([facility]) Unspecified essential hypertension Left hip pain Pain in joint, pelvic region and thigh Open wound of anterior abdominal wall, initial encounter Primary hypertension ([facility]/HCC)- Primary Unspecified essential hypertension Yeast infection of the skin Candidiasis of skin and nails Morbid obesity ([facility]/HCC) Morbid obesity Primary hypertension ([facility])- Primary Unspecified essential hypertension Allergic rhinitis, unspecified Acute cough Morbid obesity ([facility]) Morbid obesity Former cigarette smoker Personal history of tobacco use, presenting hazards to health Toxic metabolic encephalopathy- Primary Hemiparesis, right ([facility]) Unspecified hemiplegia affecting unspecified side Acute respiratory failure with hypoxia ([facility]) Heart murmur Undiagnosed cardiac murmurs Primary hypertension ([facility]) Unspecified essential hypertension Morbid obesity ([facility]) Morbid obesity Bipolar disorder with severe depression ([facility]) Slurred speech Other speech disturbance Bilateral lower extremity edema- Primary Primary hypertension ([facility]) Unspecified essential hypertension Lower extremity edema Edema Essential (primary) hypertension ([facility]) Unspecified essential hypertension Gastro-esophageal reflux disease without esophagitis Allergic rhinitis, unspecified Bilateral lower extremity edema- Primary Morbid (severe) obesity due to excess calories ([facility]) Body mass index (BMI) 45.0-49.9, adult ([facility]) Pre-diabetes Other abnormal glucose Bilateral lower extremity edema- Primary Essential (primary) hypertension ([facility]/HCC) Unspecified essential hypertension Allergic rhinitis, unspecified OSMANY (obstructive sleep apnea) Obstructive sleep apnea (adult) (pediatric) Primary hypertension (CMS/HCC) Unspecified essential hypertension Morbid obesity ([facility]/HCC) Morbid obesity Acute cystitis without hematuria- Primary Tobacco dependence Tobacco use disorder Needs flu shot Need for prophylactic vaccination and inoculation against influenza Morbid obesity (CMS/HCC) Morbid obesity Well woman exam with routine gynecological exam- Primary Routine gynecological examination Morbid obesity ([facility]/HCC) Morbid obesity Metabolic encephalopathy- Primary OSMANY (obstructive sleep apnea) Obstructive sleep apnea (adult) (pediatric) Morbid obesity ([facility]/HCC) Morbid obesity Bilateral lower extremity edema Tobacco dependence Tobacco use disorder Bipolar disorder with severe depression ([facility]) At risk for polypharmacy Anxiety Anxiety state, unspecified Primary hypertension ([facility]) Unspecified essential hypertension Right bundle branch block (RBBB) determined by electrocardiography documented in [facility] encounter [facility]* Diagnosis Yeast infection of the skin- Primary Candidiasis of skin and nails documented in this encounter [facility]* Diagnosis 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[facility])- Primary Restless leg Restless legs syndrome (RLS) Metabolic encephalopathy documented in this [facility]* Diagnosis OSMANY (obstructive sleep apnea)- Primary Obstructive sleep apnea (adult) (pediatric) Restless leg Restless legs syndrome (RLS) documented in this encounter [facility]* Diagnosis Bilateral lower extremity edema- Primary Essential (primary) hypertension ([facility]/HCC) Unspecified essential hypertension Allergic rhinitis, unspecified OSMANY (obstructive sleep apnea) Obstructive sleep apnea (adult) (pediatric) Primary hypertension ([facility]) Unspecified essential hypertension Morbid obesity ([facility]) Morbid obesity documented in this [...] Edema Pre-diabetes Other abnormal glucose Morbid obesity ([facility]/HCC) Morbid obesity Yeast infection of the skin Candidiasis of skin and nails Tobacco dependence Tobacco use disorder Mood disorder ([facility]/HCC) Unspecified episodic mood disorder Primary hypertension ([facility]) Unspecified essential hypertension Left hip pain Pain in joint, pelvic region and thigh Open wound of anterior abdominal wall, initial encounter Primary hypertension ([facility])- Primary Unspecified essential hypertension Yeast infection of the skin Candidiasis of skin and nails Morbid obesity ([facility]/HCC) Morbid obesity Primary hypertension ([facility])- Primary Unspecified essential hypertension Allergic rhinitis, unspecified Acute cough Morbid obesity ([facility]) Morbid obesity Former cigarette smoker Personal history of tobacco use, presenting hazards to health Toxic metabolic encephalopathy- Primary Hemiparesis, right ([facility]) Unspecified hemiplegia affecting unspecified side Acute respiratory failure with hypoxia ([facility]) Heart murmur Undiagnosed cardiac murmurs Primary hypertension ([facility] Unspecified essential hypertension Morbid obesity ([facility]) Morbid obesity Bipolar disorder with severe depression ([facility]) Slurred speech Other speech disturbance Bilateral lower extremity edema- Primary Primary hypertension ([facility]/HCC) Unspecified essential hypertension Lower extremity edema Edema Essential (primary) hypertension ([facility]) Unspecified essential hypertension Gastro-esophageal reflux disease without esophagitis Allergic rhinitis, unspecified Bilateral lower extremity edema- Primary Morbid (severe) obesity due to excess calories ([facility]) Body mass index (BMI) 45.0-49.9, adult ([facility]) Pre-diabetes Other abnormal glucose Bilateral lower extremity edema- Primary Essential (primary) hypertension ([facility]) Unspecified essential hypertension Allergic rhinitis, unspecified OSMANY (obstructive sleep apnea) Obstructive sleep apnea (adult) (pediatric) Primary hypertension ([facility]) Unspecified essential hypertension Morbid obesity ([facility]) Morbid obesity Acute cystitis without hematuria- Primary Tobacco dependence Tobacco use disorder Needs flu shot Need for prophylactic vaccination and inoculation against influenza Morbid obesity ([facility]) Morbid obesity Well woman exam with routine gynecological exam- Primary Routine gynecological examination Morbid obesity ([facility]/HCC) Morbid obesity Metabolic encephalopathy- Primary OSMANY (obstructive sleep apnea) Obstructive sleep apnea (adult) (pediatric) Morbid obesity ([facility]) Morbid obesity Bilateral lower extremity edema Tobacco dependence Tobacco use disorder Bipolar disorder with severe depression ([facility]) At risk for polypharmacy Anxiety Anxiety state, unspecified Primary hypertension ([facility]) Unspecified essential hypertension Right bundle branch block (RBBB) determined by electrocardiography Metabolic encephalopathy- Primary Memory change Memory loss Altered mental status, unspecified altered mental status type Concentration deficit PTSD (post-traumatic stress disorder) ([facility]) Posttraumatic stress disorder Bipolar affective disorder, remission status unspecified ([facility]) Family history of dementia Family history of other neurological diseases 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[facility]) OSMANY (obstructive sleep apnea) Obstructive [...] Edema Pre-diabetes Other abnormal glucose Morbid obesity ([facility]/HCC) Morbid obesity Yeast infection of the skin Candidiasis of skin and nails Tobacco dependence Tobacco use disorder Mood disorder (CMS/HCC) Unspecified episodic mood disorder Primary hypertension ([facility]) Unspecified essential hypertension Left hip pain Pain in joint, pelvic region and thigh Open wound of anterior abdominal wall, initial encounter Primary hypertension (CMS/HCC)- Primary Unspecified essential hypertension Yeast infection of the skin Candidiasis of skin and nails Morbid obesity (CMS/HCC) Morbid obesity Primary hypertension ([facility]/HCC)- Primary Unspecified essential hypertension Allergic rhinitis, unspecified Acute cough Morbid obesity ([facility]) Morbid obesity Former cigarette smoker Personal history of tobacco use, presenting hazards to health Toxic metabolic encephalopathy- Primary Hemiparesis, right ([facility]) Unspecified hemiplegia affecting unspecified side Acute respiratory failure with hypoxia ([facility]) Heart murmur Undiagnosed cardiac murmurs Primary hypertension ([facility]) Unspecified essential hypertension Morbid obesity ([facility]) Morbid obesity Bipolar disorder with severe depression ([facility]) Slurred speech Other speech disturbance Bilateral lower extremity edema- Primary Primary hypertension ([facility]/HCC) Unspecified essential hypertension Lower extremity edema Edema Essential (primary) hypertension ([facility]) Unspecified essential hypertension Gastro-esophageal reflux disease without esophagitis Allergic rhinitis, unspecified Bilateral lower extremity edema- Primary Morbid (severe) obesity due to excess calories ([facility]) Body mass index (BMI) 45.0-49.9, adult ([facility]) Pre-diabetes Other abnormal glucose Bilateral lower extremity edema- Primary Essential (primary) hypertension ([facility]/HCC) Unspecified essential hypertension Allergic rhinitis, unspecified OSMANY (obstructive sleep apnea) Obstructive sleep apnea (adult) (pediatric) Primary hypertension ([facility]/HCC) Unspecified essential hypertension Morbid obesity ([facility]/HCC) Morbid obesity Acute cystitis without hematuria- [...] use disorder Bipolar disorder with severe depression ([facility]) At risk for polypharmacy Anxiety Anxiety state, unspecified Primary hypertension (CMS/HCC) Unspecified essential hypertension Right bundle branch block (RBBB) determined by electrocardiography Transient alteration of awareness- Primary Restless leg Restless legs syndrome (RLS) documented in this encounter [facility]* Diagnosis Encounter for annual [...] (CMS/HCC) Unspecified episodic mood disorder Primary hypertension (CMS/[facility]) Unspecified essential hypertension Left hip pain Pain in joint, pelvic region and thigh Open wound of anterior abdominal wall, initial encounter Primary hypertension ([facility]/HCC)- Primary Unspecified essential hypertension Yeast infection of the skin Candidiasis of skin and nails Morbid obesity (CMS/HCC) Morbid obesity Primary hypertension (CMS/HCC)- Primary Unspecified essential hypertension Allergic rhinitis, unspecified Acute cough Morbid obesity ([facility]) Morbid obesity Former cigarette smoker Personal history of tobacco use, presenting hazards to health Toxic metabolic encephalopathy- Primary Hemiparesis, right (CMS/[facility]) Unspecified hemiplegia affecting unspecified side Acute respiratory failure with hypoxia ([facility]) Heart murmur Undiagnosed cardiac murmurs Primary hypertension ([facility]) Unspecified essential hypertension Morbid obesity ([facility]) Morbid obesity Bipolar disorder with severe depression ([facility]) Slurred speech Other speech disturbance Bilateral lower extremity edema- Primary Primary hypertension (CMS/HCC) Unspecified essential hypertension Lower extremity edema Edema Essential (primary) hypertension ([facility]) Unspecified essential hypertension Gastro-esophageal reflux disease without esophagitis Allergic rhinitis, unspecified Bilateral lower extremity edema- Primary Morbid (severe) obesity due to excess calories ([facility]) Body mass index (BMI) 45.0-49.9, adult ([facility]) Pre-diabetes Other abnormal glucose Bilateral lower extremity edema- Primary Essential (primary) hypertension (CMS/HCC) Unspecified essential hypertension Allergic rhinitis, unspecified OSMANY (obstructive sleep apnea) Obstructive sleep apnea (adult) (pediatric) Primary hypertension ([facility]/HCC) Unspecified essential hypertension Morbid obesity ([facility]/HCC) Morbid obesity Acute cystitis without hematuria- Primary Tobacco dependence Tobacco use disorder Needs flu shot Need for prophylactic vaccination and inoculation against influenza Morbid obesity ([facility]/HCC) Morbid obesity Well woman exam with routine gynecological exam- Primary Routine gynecological examination Morbid obesity (CMS/HCC) Morbid obesity Metabolic encephalopathy- Primary OSMANY (obstructive sleep apnea) Obstructive sleep apnea (adult) (pediatric) Morbid obesity ([facility]/HCC) Morbid obesity Bilateral lower extremity edema Tobacco dependence Tobacco use disorder Bipolar disorder with severe depression ([facility]) At risk for polypharmacy Anxiety Anxiety state, unspecified Primary hypertension ([facility]) Unspecified essential hypertension Right bundle branch block (RBBB) determined by electrocardiography Primary hypertension ([facility])- Primary Unspecified essential hypertension Chronic kidney disease, stage 3a ([facility]) ([facility]) Morbid (severe) obesity due to excess calories ([facility]) Body mass index (BMI) 45.0-49.9, adult ([facility]) OSMANY (obstructive sleep apnea) Obstructive sleep apnea (adult) (pediatric) Hemiparesis, right ([facility]) Unspecified hemiplegia affecting unspecified side Gastroesophageal reflux disease, unspecified whether esophagitis present Metabolic encephalopathy Essential (primary) hypertension ([facility]) Unspecified essential hypertension Allergic rhinitis, unspecified Gastro-esophageal reflux disease without esophagitis Bilateral lower extremity edema documented in this encounter [facility]* Diagnosis Encounter for annual wellness visit (AWV) in Medicare patient- Primary OSMANY (obstructive sleep apnea) Obstructive sleep apnea (adult) (pediatric) Chronic pain disorder Chronic pain syndrome Gastroesophageal reflux disease, unspecified whether esophagitis present Overactive bladder Hypertonicity of bladder Lower extremity edema Edema Pre-diabetes Other abnormal glucose Morbid obesity ([facility]/HCC) Morbid obesity Yeast infection of the skin Candidiasis of skin and nails Tobacco dependence Tobacco use disorder Mood disorder ([facility]) Unspecified episodic mood disorder Primary hypertension ([facility]) Unspecified essential hypertension Left hip pain Pain in joint, pelvic region and thigh Open wound of anterior abdominal wall, initial encounter Primary hypertension ([facility]/HCC)- Primary Unspecified essential hypertension Yeast infection of the skin Candidiasis of skin and nails Morbid obesity ([facility]/HCC) Morbid obesity Primary hypertension ([facility])- Primary Unspecified essential hypertension Allergic rhinitis, unspecified Acute cough Morbid obesity ([facility]) Morbid obesity Former cigarette smoker Personal history of tobacco use, presenting hazards to health Toxic metabolic encephalopathy- Primary Hemiparesis, right ([facility]) Unspecified hemiplegia affecting unspecified side Acute respiratory failure with hypoxia ([facility]) Heart murmur Undiagnosed cardiac murmurs Primary hypertension ([facility]/HCC) Unspecified essential hypertension Morbid obesity ([facility]/HCC) Morbid obesity Bipolar disorder with severe depression ([facility]) Slurred speech Other speech disturbance Bilateral lower extremity edema- Primary Primary hypertension ([facility]/HCC) Unspecified essential hypertension Lower extremity edema Edema Essential (primary) hypertension ([facility]/HCC) Unspecified essential hypertension Gastro-esophageal reflux disease without esophagitis Allergic rhinitis, unspecified Bilateral lower extremity edema- Primary Morbid (severe) obesity due to excess calories ([facility]) Body mass index (BMI) 45.0-49.9, adult ([facility]) Pre-diabetes Other abnormal glucose Bilateral lower extremity edema- Primary Essential (primary) hypertension ([facility]/HCC) Unspecified essential hypertension Allergic rhinitis, unspecified OSMANY (obstructive sleep apnea) Obstructive sleep apnea (adult) (pediatric) Primary hypertension ([facility]) Unspecified essential hypertension Morbid obesity ([facility]) Morbid obesity Acute cystitis without hematuria- Primary Tobacco dependence Tobacco use disorder Needs flu shot Need for prophylactic vaccination and inoculation against influenza Morbid obesity ([facility]/HCC) Morbid obesity Well woman exam with routine gynecological exam- Primary Routine gynecological examination Morbid obesity ([facility]) Morbid obesity Metabolic encephalopathy- Primary OSMANY (obstructive sleep apnea) Obstructive sleep apnea (adult) (pediatric) Morbid obesity ([facility]) Morbid obesity Bilateral lower extremity edema Tobacco dependence Tobacco use disorder Bipolar disorder with severe depression ([facility]) At risk for polypharmacy Anxiety Anxiety state, unspecified Primary hypertension ([facility]) Unspecified essential hypertension Right bundle branch block (RBBB) determined by electrocardiography Primary hypertension ([facility])- Primary Unspecified essential hypertension Chronic kidney disease, stage 3a (HCC) ([facility]) Morbid (severe) obesity due to excess calories ([facility]) Body mass index (BMI) 45.0-49.9, adult ([facility]) OSMANY (obstructive sleep apnea) Obstructive sleep apnea (adult) (pediatric) Hemiparesis, right ([facility]) Unspecified hemiplegia affecting unspecified side Gastroesophageal reflux disease, unspecified whether esophagitis present Metabolic encephalopathy Essential (primary) hypertension ([facility]/HCC) Unspecified essential hypertension Allergic rhinitis, unspecified Gastro-esophageal reflux disease without esophagitis Bilateral lower extremity edema 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 ([facility])- Primary OSMANY (obstructive sleep apnea) Obstructive sleep apnea (adult) (pediatric) Metabolic encephalopathy Restless leg Restless legs syndrome (RLS) Degeneration of intervertebral disc of lumbar region with discogenic back pain and lower extremity pain documented in this encounter [facility]* Diagnosis Encounter for annual [...] (CMS/HCC) Unspecified episodic mood disorder Primary hypertension ([facility]) Unspecified essential hypertension Left hip pain Pain in joint, pelvic region and thigh Open wound of anterior abdominal wall, initial encounter Primary hypertension (CMS/HCC)- Primary Unspecified essential hypertension Yeast infection of the skin Candidiasis of skin and nails Morbid obesity (CMS/HCC) Morbid obesity Primary hypertension (CMS/HCC)- Primary Unspecified essential hypertension Allergic rhinitis, unspecified Acute cough Morbid obesity ([facility]/HCC) Morbid obesity Former cigarette smoker Personal history of tobacco use, presenting hazards to health Toxic metabolic encephalopathy- Primary Hemiparesis, right (CMS/[facility]) Unspecified hemiplegia affecting unspecified side Acute respiratory failure with hypoxia ([facility]) Heart murmur Undiagnosed cardiac murmurs Primary hypertension ([facility]/HCC) Unspecified essential hypertension Morbid obesity ([facility]/HCC) Morbid obesity Bipolar disorder with severe depression ([facility]) Slurred speech Other speech disturbance Bilateral lower extremity edema- Primary Primary hypertension (CMS/HCC) Unspecified essential hypertension Lower extremity edema Edema Essential (primary) hypertension (CMS/HCC) Unspecified essential hypertension Gastro-esophageal reflux disease without esophagitis Allergic rhinitis, unspecified Bilateral lower extremity edema- Primary Morbid (severe) obesity due to excess calories ([facility]) Body mass index (BMI) 45.0-49.9, adult ([facility]) Pre-diabetes Other abnormal glucose Bilateral lower extremity edema- Primary Essential (primary) hypertension (CMS/HCC) Unspecified essential hypertension Allergic rhinitis, unspecified OSMANY (obstructive sleep apnea) Obstructive sleep apnea (adult) (pediatric) Primary hypertension ([facility]) Unspecified essential hypertension Morbid obesity ([facility]) Morbid obesity Acute cystitis without hematuria- Primary Tobacco dependence Tobacco use disorder Needs flu shot Need for prophylactic vaccination and inoculation against influenza Morbid obesity ([facility]/HCC) Morbid obesity Well woman exam with routine gynecological exam- Primary Routine gynecological examination Morbid obesity ([facility]/HCC) Morbid obesity Metabolic encephalopathy- Primary OSMANY (obstructive sleep apnea) Obstructive sleep apnea (adult) (pediatric) Morbid obesity ([facility]/HCC) Morbid obesity Bilateral lower extremity edema Tobacco dependence Tobacco use disorder Bipolar disorder with severe depression [facility] [facility]) At risk for polypharmacy Anxiety Anxiety state, unspecified Primary hypertension ([facility]) Unspecified essential hypertension Right bundle branch block (RBBB) determined by electrocardiography Primary hypertension ([facility])- Primary Unspecified essential hypertension Chronic kidney disease, stage 3a ([facility]) ([facility]) Morbid (severe) obesity due to excess calories ([facility]) Body mass index (BMI) 45.0-49.9, adult ([facility]) OSMANY (obstructive sleep apnea) Obstructive sleep apnea (adult) (pediatric) Hemiparesis, right ([facility]) Unspecified hemiplegia affecting unspecified side Gastroesophageal reflux disease, unspecified whether esophagitis present Metabolic encephalopathy Essential (primary) hypertension ([facility]) Unspecified essential hypertension Allergic rhinitis, unspecified Gastro-esophageal reflux disease without esophagitis Bilateral lower extremity edema Restless leg Restless legs syndrome (RLS) documented in this encounter [facility] HealthcareEvaluation note* Diagnosis Encounter for annual wellness visit (AWV) in Medicare patient- Primary OSMANY (obstructive sleep apnea) Obstructive sleep apnea (adult) (pediatric) Chronic pain disorder Chronic pain syndrome Gastroesophageal reflux disease, unspecified whether esophagitis present Overactive bladder Hypertonicity of bladder Lower extremity edema Edema Pre-diabetes Other abnormal glucose Morbid obesity ([facility]) Morbid obesity Yeast infection of the skin Candidiasis of skin and nails Tobacco dependence Tobacco use disorder Mood disorder ([facility]/HCC) Unspecified episodic mood disorder Primary hypertension ([facility]) Unspecified essential hypertension Left hip pain Pain in joint, pelvic region and thigh Open wound of anterior abdominal wall, initial encounter Primary hypertension ([facility])- Primary Unspecified essential hypertension Yeast infection of the skin Candidiasis of skin and nails Morbid obesity ([facility]/HCC) Morbid obesity Primary hypertension ([facility]/HCC)- Primary Unspecified essential hypertension Allergic rhinitis, unspecified Acute cough Morbid obesity ([facility]/HCC) Morbid obesity Former cigarette smoker Personal history of tobacco use, presenting hazards to health Toxic metabolic encephalopathy- Primary Hemiparesis, right ([facility]) Unspecified hemiplegia affecting unspecified side Acute respiratory failure with hypoxia ([facility]) Heart murmur Undiagnosed cardiac murmurs Primary hypertension ([facility]/HCC) Unspecified essential hypertension Morbid obesity ([facility]/HCC) Morbid obesity Bipolar disorder with severe depression ([facility]) Slurred speech Other speech disturbance Bilateral lower extremity edema- Primary Primary hypertension ([facility]/HCC) Unspecified essential hypertension Lower extremity edema Edema Essential (primary) hypertension ([facility]/HCC) Unspecified essential hypertension Gastro-esophageal reflux disease without esophagitis Allergic rhinitis, unspecified Bilateral lower extremity edema- Primary Morbid (severe) obesity due to excess calories ([facility]) Body mass index (BMI) 45.0-49.9, adult ([facility]) Pre-diabetes Other abnormal glucose Bilateral lower extremity edema- Primary Essential (primary) hypertension ([facility]) Unspecified essential hypertension Allergic rhinitis, unspecified OSMANY (obstructive sleep apnea) Obstructive sleep apnea (adult) (pediatric) Primary hypertension ([facility]) Unspecified essential hypertension Morbid obesity ([facility]) Morbid obesity Acute cystitis without hematuria- Primary Tobacco dependence Tobacco use disorder Needs flu shot Need for prophylactic vaccination and inoculation against influenza Morbid obesity ([facility]/HCC) Morbid obesity Well woman exam with routine gynecological exam- Primary Routine gynecological examination Morbid obesity ([facility]/HCC) Morbid obesity Metabolic encephalopathy- Primary OSMANY (obstructive sleep apnea) Obstructive sleep apnea (adult) (pediatric) Morbid obesity ([facility]) Morbid obesity Bilateral lower extremity edema Tobacco dependence Tobacco use disorder Bipolar disorder with severe depression ([facility]) At risk for polypharmacy Anxiety Anxiety state, unspecified Primary hypertension ([facility]) Unspecified essential hypertension Right bundle branch block (RBBB) determined by electrocardiography Primary hypertension ([facility])- Primary Unspecified essential hypertension Chronic kidney disease, stage 3a (HCC) ([facility]) Morbid (severe) obesity due to excess calories ([facility]) Body mass index (BMI) 45.0-49.9, adult ([facility]) OSMANY (obstructive sleep apnea) Obstructive sleep apnea (adult) (pediatric) Hemiparesis, right ([facility]) Unspecified hemiplegia affecting unspecified side Gastroesophageal reflux disease, unspecified whether esophagitis present Metabolic encephalopathy Essential (primary) hypertension (CMS/HCC) Unspecified essential hypertension Allergic rhinitis, unspecified Gastro-esophageal reflux disease without esophagitis Bilateral lower extremity edema URI, acute- Primary Acute upper respiratory infections of unspecified site documented in this encounter [facility] HealthcareEvaluation note* Diagnosis Encounter for annual [...] Tobacco dependence Tobacco use disorder Mood disorder ([facility]) Unspecified episodic mood disorder Primary hypertension ([facility]) Unspecified essential hypertension Left hip pain Pain in joint, pelvic region and thigh Open wound of anterior abdominal wall, initial encounter Primary hypertension ([facility]/HCC)- Primary Unspecified essential hypertension Yeast infection of the skin Candidiasis of skin and nails Morbid obesity ([facility]) Morbid obesity Primary hypertension ([facility])- Primary Unspecified essential hypertension Allergic rhinitis, unspecified Acute cough Morbid obesity ([facility]) Morbid obesity Former cigarette smoker Personal history of tobacco use, presenting hazards to health Toxic metabolic encephalopathy- Primary Hemiparesis, right ([facility]) Unspecified hemiplegia affecting unspecified side Acute respiratory failure with hypoxia ([facility]) Heart murmur Undiagnosed cardiac murmurs Primary hypertension ([facility]) Unspecified essential hypertension Morbid obesity ([facility]) Morbid obesity Bipolar disorder with severe depression ([facility]) Slurred speech Other speech disturbance Bilateral lower extremity edema- Primary Primary hypertension ([facility]/HCC) Unspecified essential hypertension Lower extremity edema Edema Essential (primary) hypertension ([facility]) Unspecified essential hypertension Gastro-esophageal reflux disease without esophagitis Allergic rhinitis, unspecified Bilateral lower extremity edema- Primary Morbid (severe) obesity due to excess calories ([facility]) Body mass index (BMI) 45.0-49.9, adult ([facility]) Pre-diabetes Other abnormal glucose Bilateral lower extremity edema- Primary Essential (primary) hypertension ([facility]) Unspecified essential hypertension Allergic rhinitis, unspecified OSMANY (obstructive sleep apnea) Obstructive sleep apnea (adult) (pediatric) Primary hypertension (CMS/HCC) Unspecified essential hypertension Morbid obesity ([facility]) Morbid obesity Acute cystitis without hematuria- Primary Tobacco dependence Tobacco use disorder Needs flu shot Need for prophylactic vaccination and inoculation against influenza Morbid obesity ([facility]/HCC) Morbid obesity Well woman exam with routine gynecological exam- Primary Routine gynecological examination Morbid obesity ([facility]/HCC) Morbid obesity Metabolic encephalopathy- Primary OSMANY (obstructive sleep apnea) Obstructive sleep apnea (adult) (pediatric) Morbid obesity ([facility]/HCC) Morbid obesity Bilateral lower extremity edema Tobacco dependence Tobacco use disorder Bipolar disorder with severe depression ([facility]) At risk for polypharmacy Anxiety Anxiety state, unspecified Primary hypertension ([facility]) Unspecified essential hypertension Right bundle branch block (RBBB) determined by electrocardiography Primary hypertension ([facility])- Primary Unspecified essential hypertension Chronic kidney disease, stage 3a (HCC) ([facility]) Morbid (severe) obesity due to excess calories ([facility]) Body mass index (BMI) 45.0-49.9, adult ([facility]) OSMANY (obstructive sleep apnea) Obstructive sleep apnea (adult) (pediatric) Hemiparesis, right ([facility]) Unspecified hemiplegia affecting unspecified side Gastroesophageal reflux disease, unspecified whether esophagitis present Metabolic encephalopathy Essential (primary) hypertension ([facility]) Unspecified essential hypertension Allergic rhinitis, unspecified Gastro-esophageal reflux disease without esophagitis Bilateral lower extremity edema OSMANY (obstructive sleep apnea)- Primary Obstructive sleep apnea (adult) (pediatric) Restless leg Restless legs syndrome (RLS) 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[facility]) Concentration deficit documented in this encounter [facility] HealthcareEvaluation note* Diagnosis Encounter for annual wellness visit (AWV) in Medicare patient- Primary OSMANY (obstructive sleep apnea) Obstructive sleep apnea (adult) (pediatric) Chronic pain disorder Chronic pain syndrome Gastroesophageal reflux disease, unspecified whether esophagitis present Overactive bladder Hypertonicity of bladder Lower extremity edema Edema Pre-diabetes Other abnormal glucose Morbid obesity ([facility]) Morbid obesity Yeast infection of the skin Candidiasis of skin and nails Tobacco dependence Tobacco use disorder Mood disorder ([facility]/HCC) Unspecified episodic mood disorder Primary hypertension ([facility]) Unspecified essential hypertension Left hip pain Pain in joint, pelvic region and thigh Open wound of anterior abdominal wall, initial encounter Primary hypertension ([facility])- Primary Unspecified essential hypertension Yeast infection of the skin Candidiasis of skin and nails Morbid obesity ([facility]) Morbid obesity Primary hypertension ([facility])- Primary Unspecified essential hypertension Allergic rhinitis, unspecified Acute cough Morbid obesity ([facility]) Morbid obesity Former cigarette smoker Personal history of tobacco use, presenting hazards to health Toxic metabolic encephalopathy- Primary Hemiparesis, right ([facility]) Unspecified hemiplegia affecting unspecified side Acute respiratory failure with hypoxia ([facility]) Heart murmur Undiagnosed cardiac murmurs Primary hypertension ([facility]) Unspecified essential hypertension Morbid obesity ([facility]) Morbid obesity Bipolar disorder with severe depression ([facility]) Slurred speech Other speech disturbance Bilateral lower extremity edema- Primary Primary hypertension ([facility]) Unspecified essential hypertension Lower extremity edema Edema Essential (primary) hypertension ([facility]) Unspecified essential hypertension Gastro-esophageal reflux disease without esophagitis Allergic rhinitis, unspecified Bilateral lower extremity edema- Primary Morbid (severe) obesity due to excess calories ([facility]) Body mass index (BMI) 45.0-49.9, adult ([facility]) Pre-diabetes Other abnormal glucose Bilateral lower extremity edema- Primary Essential (primary) hypertension ([facility]) Unspecified essential hypertension Allergic rhinitis, unspecified OSMANY (obstructive sleep apnea) Obstructive sleep apnea (adult) (pediatric) Primary hypertension ([facility]) Unspecified essential hypertension Morbid obesity ([facility]) Morbid obesity Acute cystitis without hematuria- Primary Tobacco dependence Tobacco use disorder Needs flu shot Need for prophylactic vaccination and inoculation against influenza Morbid obesity ([facility]) Morbid obesity Well woman exam with routine gynecological exam- Primary Routine gynecological examination Morbid obesity ([facility]) Morbid obesity Metabolic encephalopathy- Primary OSMANY (obstructive sleep apnea) Obstructive sleep apnea (adult) (pediatric) Morbid obesity ([facility]) Morbid obesity Bilateral lower extremity edema Tobacco dependence Tobacco use disorder Bipolar disorder with severe depression ([facility]) At risk for polypharmacy Anxiety Anxiety state, unspecified Primary hypertension ([facility]) Unspecified essential hypertension Right bundle branch block (RBBB) determined by electrocardiography Primary hypertension ([facility])- Primary Unspecified essential hypertension Chronic kidney disease, stage 3a (HCC) ([facility]) Morbid (severe) obesity due to excess calories ([facility]) Body mass index (BMI) 45.0-49.9, adult ([facility]) OSMANY (obstructive sleep apnea) Obstructive sleep apnea (adult) (pediatric) Hemiparesis, right ([facility]) Unspecified hemiplegia affecting unspecified side Gastroesophageal reflux disease, unspecified whether esophagitis present Metabolic encephalopathy Essential (primary) hypertension (CMS/HCC) Unspecified essential hypertension Allergic rhinitis, unspecified Gastro-esophageal reflux disease without esophagitis Bilateral lower extremity edema Primary hypertension (CMS/HCC)- Primary Unspecified essential hypertension Morbid (severe) obesity due to excess calories (CMS/HCC) Essential (primary) hypertension (CMS/HCC) Unspecified essential hypertension Allergic rhinitis, unspecified Gastro-esophageal reflux disease without esophagitis Bilateral lower extremity edema Bronchitis Bronchitis, not specified as acute or chronic documented in this encounter [facility] HealthcareEvaluation note* Diagnosis Encounter for annual [...] (CMS/HCC) Unspecified episodic mood disorder Primary hypertension ([facility]) Unspecified essential hypertension Left hip [...] health Toxic metabolic encephalopathy- Primary Hemiparesis, right (CMS/[facility]) Unspecified hemiplegia affecting unspecified side Acute respiratory failure with hypoxia ([facility]) Heart murmur Undiagnosed cardiac murmurs Primary hypertension (CMS/HCC) Unspecified essential hypertension Morbid obesity (CMS/HCC) Morbid obesity Bipolar disorder with severe depression (CMS/[facility]) Slurred speech Other speech disturbance Bilateral lower extremity edema- Primary Primary hypertension (CMS/HCC) Unspecified essential hypertension Lower extremity edema Edema Essential (primary) hypertension (CMS/HCC) Unspecified essential hypertension Gastro-esophageal reflux disease without esophagitis Allergic rhinitis, unspecified Bilateral lower extremity edema- Primary Morbid (severe) obesity due to excess calories ([facility]) Body mass index (BMI) 45.0-49.9, adult (CMS/[facility]) Pre-diabetes Other abnormal glucose Bilateral lower extremity edema- Primary Essential (primary) hypertension (CMS/HCC) Unspecified essential hypertension Allergic rhinitis, unspecified OSMANY (obstructive sleep apnea) Obstructive sleep apnea (adult) (pediatric) Primary hypertension ([facility]/HCC) Unspecified essential hypertension Morbid obesity ([facility]/HCC) Morbid obesity Well woman exam with routine gynecological exam- Primary Routine gynecological examination Morbid obesity (CMS/HCC) Morbid obesity Metabolic encephalopathy- Primary OSMANY (obstructive sleep apnea) Obstructive sleep apnea (adult) (pediatric) Morbid obesity ([facility]/HCC) Morbid obesity Bilateral lower extremity edema Tobacco dependence Tobacco use disorder Bipolar disorder with severe depression ([facility]) At risk for polypharmacy Anxiety Anxiety state, unspecified Primary hypertension ([facility]/HCC) Unspecified essential hypertension Right bundle branch block (RBBB) determined by electrocardiography Primary hypertension ([facility])- Primary Unspecified essential hypertension Chronic kidney disease, stage 3a (HCC) ([facility]) Morbid (severe) obesity due to excess calories ([facility]) Body mass index (BMI) 45.0-49.9, adult ([facility]) OSMANY (obstructive sleep apnea) Obstructive sleep apnea (adult) (pediatric) Hemiparesis, right ([facility]) Unspecified hemiplegia affecting unspecified side Gastroesophageal reflux disease, unspecified whether esophagitis present Metabolic encephalopathy Essential (primary) hypertension ([facility]/HCC) Unspecified essential hypertension Allergic rhinitis, unspecified Gastro-esophageal reflux disease without esophagitis Bilateral lower extremity edema Primary hypertension ([facility]/HCC)- Primary Unspecified essential hypertension Morbid (severe) obesity due to excess calories ([facility]/HCC) Essential (primary) hypertension ([facility]) Unspecified essential hypertension Allergic rhinitis, unspecified Gastro-esophageal reflux disease without esophagitis Bilateral lower extremity edema Bronchitis Bronchitis, not specified as acute or chronic Primary hypertension ([facility]/HCC)- Primary Unspecified essential hypertension Bronchitis Bronchitis, not specified as acute or chronic Bilateral lower extremity edema Morbid (severe) obesity due to excess calories ([facility]) Pre-diabetes Other abnormal glucose Allergic rhinitis, unspecified seasonality, unspecified trigger Encounter for screening mammogram for malignant neoplasm of breast Former cigarette smoker Personal history of tobacco use, presenting hazards to health documented in this encounter [facility] and [facility] Author Jace Graham [facility] March 23, 2023 11:21am Note Date/Time March 23, 2023 11:21am [facility] [address] [place] [address] Gastroenterology H&P Signed Patient: Michelle Be MR#: [id number] : 1960 Acct:[id number] Age/Sex: 62 / F Adm Date: 3 Loc: Room: Type: [facility] Attending Dr: Jace Graham MD [...] <Electronically signed by Jace Graham MD> 03/23/231120 [facility] Work Phone: History general Narrative - [...] see above surg Hospitalization History stroke 2018 [facility] [employer] Other Hospital Discharge instructions Additional Instructions Regular Diet [facility]charge instructions Additional [...] years. -Follow up with PCP. -Office number [phone].[facility] Work Phone: Reason for visit Narrative* Consultation (Routine) - Closed Specialty Diagnoses / Procedures Referred By Radha t Referred To Contact Neuropsychology Diagnoses Memory change Procedures [place] OFFICE/OUTPATIENT NEW HIGH Juany Ramirez PA [address] [place] [address] Phone: tel: fax: David Foster, PhD [address] [address] Phone: tel: fax: Referral ID Status Reason Start Date Expiration Date V isits Requested Visits Authorized [id number] Closed Specialty Services Required 03/07/2024 09/03/2024 1 [...] Documents on File Type Date Recorded 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 Power of Nutrition Aide 03/10/2024 3:12 PM POA Documents on File Type Date Recorded 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 Power of Nutrition Aide 03/10/2024 3:12 PM POA Documents on File Type Date Recorded 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 Power of Nutrition Aide 03/16/2024 9:42 AM darian r of criminal attorney Power of Nutrition Aide 03/10/2024 3:12 PM POA Documents on File Type Date Recorded 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 Power of Nutrition Aide 03/16/2024 9:42 AM darian r of criminal attorney Power of Nutrition Aide 03/10/2024 3:12 PM POA Chief Complaint and Reason for Visit Chief Complaint Bipolar Depression Reason for Visit Allergies Bipolar 2 disorder Hypertension Morbid obesity with BMI of 45.0-49.9, adult OSMANY (obstructive sleep apnea) Restless legs syndrome Chief Complaint Screening Additional Source Comments INFORMATION SOURCE (unrecogn ized section and content) DATE CREATED AUTHOR 02/18/2019 [facility] DATE CREATED AUTHOR AUTHOR'S ORGANIZ ATION 11/15/2021 [facility] DATE CREATED AUTHOR AUTHOR'S ORGANIZ ATION 08/16/2022 [facility] DATE CREATED AUTHOR AUTHOR'S ORGANIZ ATION 07/28/2024 [facility] DATE CREATED AUTHOR AUTHOR'S ORGANIZ ATION 08/11/2024 [facility] DATE CREATED AUTHOR AUTHOR'S ORGANIZ ATION 08/17/2024 [facility] dical Specialists EPIC Care Teams (unrecognized [...] MD Other Provider Active Joellen Le , PHYSICAL MEDICINE TEACHER-C Other Provider Active Severo Yancey MD Other Provider Active Rao Webber MD Other Provider Active Yuan Shi MD Other Provider Active Delroy Ramirez MD Other Provider Active Berta Comer , DO Other Provider Active Negrito Ruiz , DO Other Provider Active Lacho Singh , DO Other Provider Active Rachana Obika , CLEAN UP SUPERVISOR Other Provider Active Rob Lake , Other Provider Active Jeff Alvarez MD Other Provider Active Urmila Rinaldi APRN Other Provider Active Bina Mayberry APRN Other Provider Active Mir Bradford MD Other Provider Active Te Da Silva MD Other Provider Active Debra Landaverde RN Other Provider Active Team Status: Inactive Member Role Status Dates [facility] Primary [facility] Provider Active Jace Graham MD Attending Provider Active Machining Engineer Relationship Specialty Start Date End Date José Luis Roberts MD [address] [place] [address] PCP - General Family Medicine 05/18/23 Adelaida Carrion NP [address] [place] [address] Referring Physician Nurse Practitioner 10/14/22 Machining Engineer Relationship Specialty Start Date End Date José Luis Roberts MD [address] [place] [address] PCP - General Family Medicine 05/18/23 Adelaida Carrion NP [address] [place] [address] Referring Physician Nurse Practitioner 10/14/22 Machining Engineer Relationship Specialty Start Date End Date José Luis Roberts MD [address] [place] [address] PCP - General Family Medicine 05/18/23 Adelaida Carrion NP [address] [place] [address] Referring Physician Nurse Practitioner 10/14/22 Machining Engineer Relationship Specialty Start Date End Date José Luis Roberts MD [address] [place] [address] PCP - General Family Medicine 05/18/23 Adelaida Carrion NP Referring Physician Nurse Practitioner 10/14/22 Miriam Suarez DO [address] [place] [address] Referring Physician Neurology 06/29/23 [place] De [place] LPN Licensed Practical Nurse Family Medicine 12/18/23 Machining Engineer Relationship Specialty Start Date End Date José Luis Roberts MD [address] [place] [address] PCP - General Family Medicine 05/18/23 Adelaida Carrion, BRIANA Referring Physician Nurse Practitioner 10/14/22 Miriam Suarez DO [address] [place] [address] Referring Physician Neurology 06/29/23 [place] LPN Licensed Practical Nurse Family Medicine 12/18/23 Machining Engineer Relationship Specialty Start Date End Date Unallocated, Noms MD Mariela [address] [facility] [place] [address] PCP - General Family Medicine 01/27/24 Miriam Suarez DO [address] [place] [address] Referring Physician Neurology 06/29/23 [place] LPN Licensed Practical Nurse Family Medicine 12/18/23 Adelaida Carrion, BRIANA [address] [place] [address] Nurse Practitioner Family Medicine 01/27/24 Machining Engineer Relationship Specialty Start Date End Date Unallocated, Noms MD Mariela [address] [place] [address] PCP - General Family Medicine 01/27/24 Miriam Suarez DO [address] [place] [address] Referring Physician Neurology 06/29/23 [place] LPN Licensed Practical Nurse Family Medicine 12/18/23 Adelaida Carrion, BRIANA [address] [place] [place] [address] Nurse Practitioner Family Medicine 01/27/24 Machining Engineer Relationship Specialty Start Date End Date José Luis Roberts MD [address] [place] [place] [address] PCP - General Family Medicine 02/02/24 Miriam Suarez DO [address] [place] [address] Referring Physician Neurology 06/29/23 [place] De [place] LPN Licensed Practical Nurse Family Medicine 12/18/23 Adelaida Carrion, BRIANA [address] [place] [address] Nurse Practitioner Family Medicine 01/27/24 Machining Engineer Relationship Specialty Start Date End Date José Luis Roberts MD [address] [place] [address] PCP - General Family Medicine 02/02/24 Miriam Suarez DO [address] [place] [address] Referring Physician Neurology 06/29/23 Adelaida Carrion NP [address] [place] [address] Nurse Practitioner Family Medicine 01/27/24 Bong Rosado MA Family Medicine 02/12/24 Machining Engineer Relationship Specialty Start Date End Date José Luis Roberts MD [address] [place] [address] PCP - General Family Medicine 02/02/24 Miriam Suarez DO [address] [place] [address] Referring Physician Neurology 06/29/23 Adelaida Carrion, BRIANA [address] [place] [address] Nurse Practitioner Family Medicine 01/27/24 Bong Rosado MA Family Medicine 02/12/24 Machining Engineer Relationship Specialty Start Date End Date José Luis Roberts MD [address] [place] [address] PCP - General Family Medicine 02/02/24 Miriam Suarez DO [address] [place] [address] Referring Physician Neurology 06/29/23 Adelaida Carrion NP [address] [place] [address] Nurse Practitioner Family Medicine 01/27/24 Bong Rosado MA Family Medicine 02/12/24 Machining Engineer Relationship Specialty Start Date End Date José Luis Roberts MD [address] [place] [address] PCP - General Family Medicine 02/02/24 Miriam Suarez DO [address] [place], [place] [address] Referring Physician Neurology 06/29/23 Adelaida Carrion NP [address] [place] [address] Nurse Practitioner Family Medicine 01/27/24 Bong Rosado MA Family Medicine 02/12/24 Machining Engineer Relationship Specialty Start Date End Date José Luis Roberts MD [address] [place] [address] PCP - General Family Medicine 02/02/24 Miriam Suarez DO [address] [place] [address] Referring Physician Neurology 06/29/23 Adelaida Carrion NP [address] [place] [address] Nurse Practitioner Family Medicine 01/27/24 Bong Rosado MA Family Medicine 02/12/24 Machining Engineer Relationship Specialty Start Date End Date José Luis Roberts MD [address] [place] [address] PCP - General Family Medicine 02/02/24 Miriam Suarez DO [address] [place] [address] Referring Physician Neurology 06/29/23 Adelaida Carrion NP [address] [place] [address] Nurse Practitioner Family Medicine 01/27/24 Bong Rosado MA Family Medicine 02/12/24 Machining Engineer Relationship Specialty Start Date End Date José Luis Roberts MD [address] [place] [address] PCP - General Family Medicine 02/02/24 Miriam Suarez DO [address] [place] [address] Referring Physician Neurology 06/29/23 Adelaida Carrion, BRIANA [address] [place] [address] Nurse Practitioner Family Medicine 01/27/24 Bong Rosado MA Family Medicine 02/12/24 Machining Engineer Relationship Specialty Start Date End Date José Luis Roberts MD [address] [place] [address] PCP - General Family Medicine 02/02/24 Miriam Suarez DO [address] [place] [address] Referring Physician Neurology 06/29/23 Adelaida Carrion NP [address] [place] [address] Nurse Practitioner Family Medicine 01/27/24 Bong Rosado MA Family Medicine 02/12/24 Machining Engineer Relationship Specialty Start Date End Date José Luis Roberts MD [address] [place] [address] PCP - General Family Medicine 02/02/24 Miriam Suarez DO [address] [place], [place] [address] Referring Physician Neurology 06/29/23 Adelaida Carrion NP [address] [place] [address] Nurse Practitioner Family Medicine 01/27/24 Bong Rosado MA Family Medicine 02/12/24 Machining Engineer Relationship Specialty Start Date End Date José Luis Roberts MD [address] [place] [address] PCP - General Family Medicine 02/02/24 Miriam Suarez DO [address] [place] [address] Referring Physician Neurology 06/29/23 Adelaida Carrion NP [address] [place] [address] Nurse Practitioner Family Medicine 01/27/24 Bong Rosado MA Family Medicine 02/12/24 Machining Engineer Relationship Specialty Start Date End Date José Luis Roberts MD [address] [place] [address] PCP - General Family Medicine 02/02/24 Miriam Suarez DO [address] [place] [address] Referring Physician Neurology 06/29/23 Adelaida Carrion NP [address] [place] [address] Nurse Practitioner Family Medicine 01/27/24 Bong Rosado MA Family Medicine 02/12/24 Machining Engineer Relationship Specialty Start Date End Date José Luis Roberts MD [address] [place] [address] PCP - General Family Medicine 05/18/23 Adelaida Carrion NP Referring Physician Nurse Practitioner 10/14/22 Miriam Suarez DO [address] [place] [address] Referring Physician Neurology 06/29/23 Mathew Parra LPN Licensed Practical Nurse Family Medicine 07/23/23 Machining Engineer Relationship Specialty Start Date End Date José Luis Roberts MD [address] [place] [address] PCP - General Family Medicine 05/18/23 Adelaida Carrion NP Referring Physician Nurse Practitioner 10/14/22 Miriam Suarez DO [address] [place] [address] Referring Physician Neurology 06/29/23 Mathew Parra LPN Licensed Practical Nurse Family Medicine 07/23/23 Machining Engineer Relationship Specialty Start Date End Date José Luis Roberts MD [address] [place] [address] PCP - General Family Medicine 05/18/23 Adelaida Carrion, BRIANA Referring Physician Nurse Practitioner 10/14/22 Miriam Suarez DO [address] [place] [address] Referring Physician Neurology 06/29/23 Mathew Parra LPN Licensed Practical Nurse Family Medicine 07/23/23 Machining Engineer Relationship Specialty Start Date End Date José Luis Roberts MD [address] [place] [address] PCP - General Family Medicine 05/18/23 Adelaida Carrion NP Referring Physician Nurse Practitioner 10/14/22 Miriam Suarez DO [address] [place] [address] Referring Physician Neurology 06/29/23 Mathew Parra LPN Licensed Practical Nurse Family Medicine 07/23/23 Machining Engineer Relationship Specialty Start Date End Date José Luis Roberts MD [address] [place] [address] PCP - General Family Medicine 05/18/23 Adelaida Carrion, BRIANA Referring Physician Nurse Practitioner 10/14/22 Miriam Suarez DO [address] [place] [address] Referring Physician Neurology 06/29/23 [place] De [place] LPN Licensed Practical Nurse Family Medicine 12/18/23 Machining Engineer Relationship Specialty Start Date End Date José Luis Roberts MD [address] [place] [address] PCP - General Family Medicine 05/18/23 Adelaida Carrion NP Referring Physician Nurse Practitioner 10/14/22 Miriam Suarez DO [address] [place], [place] [address] Referring Physician Neurology 06/29/23 [place] LPN Licensed Practical Nurse Family Medicine 12/18/23 Machining Engineer Relationship Specialty Start Date End Date José Luis Roberts MD [address] [place] [address] PCP - General Family Medicine 05/18/23 Adelaida Carrion, BRIANA Referring Physician Nurse Practitioner 10/14/22 Miriam Suarez DO [address] [place] [address] Referring Physician Neurology 06/29/23 [place] De [place] LPN Licensed Practical Nurse Family Medicine 12/18/23 Machining Engineer Relationship Specialty Start Date End Date Naderer, José Luis, MD [address] [place] [address] PCP - General Family Medicine 02/02/24 Miriam Suarze DO [address] [place] [address] Referring Physician Neurology 06/29/23 Adelaida Carrion, BRIANA [address] [place] [address] Nurse Practitioner Family Medicine 01/27/24 Bong Rosado MA Family Medicine 02/12/24 Machining Engineer Relationship Specialty Start Date End Date José Luis Roberts MD [address] [place] [address] PCP - General Family Medicine 02/02/24 Miriam Suarez DO [address] [place], [place] [address] Referring Physician Neurology 06/29/23 Adelaida Carrion, BRIANA [address] [place] [address] Nurse Practitioner Family Medicine 01/27/24 Bong Rosado MA Family Medicine 02/12/24 Machining Engineer Relationship Specialty Start Date End Date José Luis Roberts MD [address] [place] [address] PCP - General Family Medicine 02/02/24 Miriam Suarez DO [address] [place] [address] Referring Physician Neurology 06/29/23 Adelaida Carrion NP [address] [place] [address] Nurse Practitioner Family Medicine 01/27/24 Bong Rosado MA Family Medicine 02/12/24 Machining Engineer Relationship Specialty Start Date End Date José Luis Roberts MD [address] [place] [address] PCP - General Family Medicine 02/02/24 Miriam Suarez DO [address] [place], [place] [address] Referring Physician Neurology 06/29/23 Adelaida Carrion NP [address] [place] [address] Nurse Practitioner Family Medicine 01/27/24 Bong Rosado MA Family Medicine 02/12/24 Machining Engineer Relationship Specialty Start Date End Date José Lius Roberts MD [address] [place] [address] PCP - General Family Medicine 02/02/24 Miriam Suarez DO [address] [place] [address] Referring Physician Neurology 06/29/23 Adelaida Carrion NP [address] [place] [address] Nurse Practitioner Family Medicine 01/27/24 Bong Rosado MA Family Medicine 02/12/24 Machining Engineer Relationship Specialty Start Date End Date Naderer, José Luis, MD [address] [place] [address] PCP - General Family Medicine 02/02/24 Miriam Suarez DO [address] [place] [address] Referring Physician Neurology 06/29/23 Adelaida Carrion, BRIANA [address] [place] [address] Nurse Practitioner Family Medicine 01/27/24 Bong Rosado MA Family Medicine 02/12/24 Machining Engineer Relationship Specialty Start Date End Date José Luis Roberts MD [address] [place] [address] PCP - General Family Medicine 02/02/24 Miriam Suarez DO [address] [place], [place] [address] Referring Physician Neurology 06/29/23 Adelaida Carrion, BRIANA [address] [place] [address] Nurse Practitioner Family Medicine 01/27/24 Bong Rosado MA Family Medicine 02/12/24 Juany Leggett PA [address] [place], [place] [address] Physician Supply Requirements Officer Neurology 07/26/24 Machining Engineer Relationship Specialty Start Date End Date José Luis Roberts MD [address] [place] [address] PCP - General Family Medicine 02/02/24 Miriam Suarez DO [address] [place] [address] Referring Physician Neurology 06/29/23 Adelaida Carrion NP [address] [place] [address] Nurse Practitioner Family Medicine 01/27/24 Bong Rosado, [place] Family Medicine 02/12/24 Juany Leggett PA [address] [place], [place] [address] Physician Supply Requirements Officer Neurology 07/26/24 Machining Engineer Relationship Specialty Start Date End Date José Luis Roberts MD [address] [place] [address] PCP - General Family Medicine 02/02/24 Miriam Suarez DO [address] [place] [address] Referring Physician Neurology 06/29/23 Adelaida Carrion, BRIANA [address] [place] [address] Nurse Practitioner Family Medicine 01/27/24 Bong Rosado MA Family Medicine 02/12/24 Juany Leggett PA [address] [place], [place] [address] Physician Supply Requirements Officer Neurology 07/26/24 Machining Engineer Relationship Specialty Start Date End Date José Luis Roberts MD [address] [place] [address] PCP - General Family Medicine 02/02/24 Miriam Suarez DO [address] [place] [address] Referring Physician Neurology 06/29/23 Adelaida Carrion NP [address] [place] [address] Nurse Practitioner Family Medicine 01/27/24 Bong Rosado MA Family Medicine 02/12/24 Juany Leggett PA [address] [place] [address] Physician Supply Requirements Officer Neurology 07/26/24 Machining Engineer Relationship Specialty Start Date End Date José Luis Roberts MD [address] [place] [address] PCP - General Family Medicine 02/02/24 Miriam Suarez DO [address] [place] [address] Referring Physician Neurology 06/29/23 Adelaida Carrion NP [address] [place] [address] Nurse Practitioner Family Medicine 01/27/24 Bong Rosado MA Family Medicine 02/12/24 Juany Leggett PA [address] [place] [address] Physician Supply Requirements Officer Neurology 07/26/24 Machining Engineer Relationship Specialty Start Date End Date José Luis Roberts MD [address] [place] [address] PCP - General Family Medicine 02/02/24 Miriam Suarez DO [address] [place] [address] Referring Physician Neurology 06/29/23 Adelaida Carrion NP [address] [place] [address] Nurse Practitioner Family Medicine 01/27/24 Bong Rosado MA Family Medicine 02/12/24 Juany Leggett PA [address] [place] [phone] Physician Supply Requirements Officer Neurology 07/26/24 REASON FOR VISIT (unrecogniz ed section and content) Reason Comments Med Refill Reason Comments Restless Legs Encephalopathy Reason Comments Hospital Follow-up Reason Comments Anxiety Reason Comments Sleep Apnea Reason Onset Date Comments Med Refill 04/12/2024 Reason Comments Encephalopathy Reason Comments Altered Mental Status Reason Comments Hospital Follow-up Reason Comments Diabetes FOR RECORDS PERTAINING TO PATIENTS WHO ARE [...] BE BASED ON THE PRIMARY CLINICAL RECORDS. [employer] provides no warranty or guarantee of the accuracy or completeness of information in this document.
--- OUTSIDE RECORDS SUMMARY | 2024-08-25 04:08 | XMS_ITS | Encounter Summary ---
Author Organization [facility] Address [address] [place] [address] Care Team Providers Care Oracle Database Consultant Name Role Phone DanielaSauravle DO Unavailable [phone] Adelaida Carrion BOATHOUSE KEEPER Unavailable [phone] José Luis Roberts MD Primary Care Provider Bong Rosado MA Unavailable Unavailable Juany Leggett Unavailable Encounter Details Date Type Department Care Team (Late st Contact Info) Description 03/21/2024 Orders Only [facility] [address] [place] [address] Adelaida Carrion, BRIANA [address] [place] [address] Social History Tobacco Use Types Packs/Day Years [...] declined 08/16/2023 How often do you attend catholic or yarsani serv ices? Never 08/16/2023 Do you belong to any clubs o r organizations such as catholic groups, unions, fraRegenaStem or athletic groups, or school groups? No [...] Recorded Patient Health Questionnaire-2 Score 2 09/21/2023 [facility] - Occupational Stress [...] place to sleep or slept in a snf (including now)? No 08/16/2023 Housing Stability Vital [...] 9:40 AM EDT Office Visit [facility] [address] [place] [address] Adelaida Carrion NP [address] [place] [address] 11/30/2024 12:40 PM EDT Office Visit [facility]TI[facility] [address] [place] [address] Juany Caballero NP [address] [place] [address] documented as of this encounter Procedures Procedure Name Priority Date/Time Associated Diagnosis Comments SCANNED LABS Routine 03/21/2024 2:30 PM EST SCANNED LABS Routine 03/21/2024 2:21 PM EST ECG 12-LEAD Routine 03/21/2024 2:19 PM EST ECG 12-LEAD Routine 03/21/2024 2:15 PM EST ECG 12-LEAD Routine 03/21/2024 2:10 PM EST ECG 12-LEAD Routine 03/21/2024 2:07 PM EST COMPLETE ECHOCARDIOGRAM DOBUTAMINE STRESS TEST Routine 03/21/2024 2:03 PM EST documented in this encounter Results * SCANNED LABS (03/21/2024 2:30 PM EST) [facility] LAB CHG PERFORMABLES Final Res ult * SCANNED LABS (03/21/2024 2:21 PM EST) Adelaida Carrion BOATHOUSE KEEPER LAB CHG PERFORMABLES Final Resu lt * ECG 12 lead (03/21/2024 2:19 PM EST) [facility] ECG ORDERABLES Final Result * ECG 12 lead (03/21/2024 2:15 PM EST) Result [facility] ECG ORDERABLES Final Result * ECG 12 lead (03/21/2024 2:10 PM EST) Clayton Galvan MD ECG ORDERABLES Final Result * ECG 12 lead (03/21/2024 2:07 PM EST) Rochelle Keene MD ECG ORDERABLES Final Result * Complete echocardiogram dobutamine stress test (03/21/2024 2:03 PM EST) Anatomical Region Laterality Modality Ultrasound us Adelaida Carrion BOATHOUSE KEEPER CV ECHO PROCEDURES Final Result documented in this encounter Visit Diagnoses Not on filedocumented in this encounter Additional Health Concerns Assessment Noted Time PHQ-9 Depression Total Score: 8 05/18/19 24 5:00 PM EST documented as of this encounter Care Teams Oracle Database Consultant Relationship Specialty Start Date End Date José Luis Roberts MD [address] [place] [address] PCP - General Family Medicine 02/02/24 Miriam Suarez DO [address] [place], [place] [address] Referring Physician Neurology 06/29/23 Adelaida Carrion NP [address] [place] [address] Nurse Practitioner Family Medicine 01/27/24 Bong Rosado MA Family Medicine 02/12/24 Juany Leggett PA [address] [place] [address] Physician Medication Administration Professional Neurology 07/26/24 documented as of this encounter
--- OUTSIDE RECORDS SUMMARY | 2024-08-25 04:08 | XMS_ITS | Clinical Summary ---
Author Organization [facility] Address [address] [place] [address] Care Team Providers Care Commercial Maintenance Technician Name Role Phone Adelaida Carrion APRN - BRIANA Primary Care Provide r Allergies Active Allergy Reactions Criticality Noted Date Comments Adhesive Tape 12/12/2021 Levetiracetam 12/12/2021 Eszopiclone Anaphylaxis High 01/20/2024 Penicillins 12/12/2021 Prochlorperazine 12/12/2021 Milnacipran 12/12/2021 Tetracycline 12/12/2021 Medications amLODIPine (NORVASC) 10 MG tablet Take 1 tablet by mouth daily Active losartan (COZAAR) 100 MG tablet Take 1 tablet by mouth daily Active cetirizine (ZYRTEC) 10 MG tablet Take 1 tablet by mouth daily Active DULoxetine (CYMBALTA) 60 MG extended release capsule Take 1 capsule by mouth daily Active Biotin 5000 MCG CAPS Take by mouth Active omeprazole (PRILOSEC) 20 MG delayed release capsule Take 1 capsule by mouth daily Active Multiple Vitamins-Minera ls (THERAPEUTIC MULTIVITAMIN-WA NERALS) tablet Take 1 tablet by mouth daily Active acetaminophen-c odeine (TYLENOL #3) 300-30 MG per tablet Take 1 tablet by mouth every 4 hours as needed for Pain. Active magnesium oxide (MAG-OX) 400 MG tablet Take 1 tablet by mouth daily Active melatonin 3 MG TABS tablet Take 4 tablets by mouth daily Active Calcium Citrate (CITRACAL PO) Take by mouth 4 times daily Active IRON-VITAMIN C PO Take 60 mg by mouth in the morning and at bedtime Active clonazePAM (KLONOPIN) 1 MG tabletIndicatio ns:Restless leg syndrome TAKE 1 TABLET BY MOUTH IN THE MORNING then TAKE 1 TABLET BY MOUTH AT BEDTIME 60 tablet 5 06/11/2023 Active rOPINIRole (REQUIP) 4 MG tablet Take 1 tablet by mouth nightly 30 tablet 5 06/11/2023 Active traZODone (DESYREL) 150 MG tablet Take 1 tablet by mouth nightly 30 tablet 1 09/03/2023 Active carvedilol (COREG) 12.5 MG tablet Take 1 tablet by mouth 2 times daily 60 tablet 3 09/03/2023 Active fluticasone (FLONASE) 50 MCG/ACT nasal spray 1 spray by Each Nostril route daily 16 g 3 09/03/2023 Active tiZANidine (ZANAFLEX) 2 MG tablet Take 1 tablet by mouth every 8 hours as needed (muscle spasms) 60 tablet 09/03/2023 Active gabapentin (NEURONTIN) 600 MG tablet Take 0.5 tablets by mouth 2 times daily for 60 days. 30 tablet 1 09/03/2023 Active spironolactone (ALDACTONE) 25 MG tablet Take 2 tablets by mouth daily 12/30/2023 Active cariprazine hcl (VRAYLAR) 4.5 MG CAPS capsule Take 1 capsule by mouth daily 09/21/2023 Active Active Problems Problem Noted Date Diagnosed Date RLS (restless legs syndrome) 08/31/2023 History of depression 08/31/2023 Fibromyalgia 08/31/2023 Acute respiratory failure 08/26/2023 At risk for polypharmacy 08/26/2023 Abnormal brain MRI 08/26/2023 Toxic metabolic encephalopathy 08/26/2023 Encephalopathy 08/24/2023 Family History Medical History Relation Name Comments Diabetes Mother Other Mother ESRD Relation Name Status Comments Mother Social History Tobacco Use Types Packs/Day Years Used Date Smoking Tobacco: Former Cigarettes Q uit: 2016 Smokeless Tobacco: Never Tobacco Cessation:Counseling Given: Not Answered Alcohol Use Standard Drinks/Week Comments Yes 0 (1 standard drink = 0.6 oz pur e alcohol) Rarely [facility] Utilities Answer Date Recorded In the past 12 months has th e electric, gas, oil, or water company threatened to shut off services in your home? Yes 08/24/2023 Hunger Vital Sign Answer Date Recorded Within the past 12 months, y ou worried that your food would run out before you got the money to buy more. Never true 08/24/19 24 Within the past 12 months, t he food you bought just didn't last and you didn't have money to get more. Never true 08/24/2023 PRAPARE - Transportation Answer Date Re corded In the past 12 months, has l ack of transportation kept you from medical appointments or from getting medications? No 08/05 In the past 12 months, has l ack of transportation kept you from meetings, work, or from getting things needed for daily living? No 08/24/2023 Housing Stability Vital Sign Answer Davon e Recorded In the last 12 months, was t here a time when you were not able to pay the mortgage or rent on time? Yes 08/24/2023 In the last 12 months, how many places have you lived? 1 08/24/2023 In the last 12 months, was t here a time when you did not have a steady place to sleep or slept in a alf (including now)? No 08/24/2023 Food Insecurity Answer Date Recorded Within the past 12 months, y ou worried that your food would run out before you got the money to buy more. 1 08/24/2023 Within the past 12 months, t he food you bought just didn't last and you didn't have money to get more. 1 08/24/2023 Interpersonal Safety Domain Source: IP Abuse Scr eening Answer Date Recorded Physical abuse Unable to assess 08/25/2023 Verbal abuse Unable to assess 08/25/2023 Emotional abuse Unable to assess 08/25/2023 Financial abuse Unable to assess 08/25/2023 Sexual abuse Unable to assess 08/25/2023 Comments Unknown Sex and Gender Information Value Date Recorded Sex Assigned at Not on file Legal Sex Female 2:01 PM EDT Gender Identity Not on file Sexual Orientation Not on file Last Filed Vital Signs Vital Sign Reading Time Taken Comments Blood Pressure 115/64 01/21/2024 2:00 AM EDT Pulse 65 01/21/2024 2:00 AM EDT Temperature 36.3 C (97.4 F) 01/20/2024 11:00 PM EDT Respiratory Rate 16 01/21/2024 1:15 AM EDT Oxygen Saturation 94% 01/21/2024 2:00 AM EDT Inhaled Oxygen Concentration - - Weight 120.1 kg (264 lb 12.4 oz) 09/01/2023 5:21 AM EDT Height 162.6 cm (5' 4.02 ) 08/27/2023 1 1:11 AM EDT Body Mass Index 45.43 08/27/2023 11:11 AM EDT Plan of Treatment Health Maintenance Due Date Last Done Comments Depression Screen 1973 HIV screen 1976 Hepatitis C screen 12/06/1979 Pap smear 1982 Cervical cancer screen 12/06/1991 HPV (without or with Pap) 12/06/1991 Breast cancer screen 2001 Lipids 2001 Colonoscopy 2006 Colorectal Cancer Screen 2006 FIT/FOBT: Average risk 2006 Fecal-DNA (Cologuard): Average risk 2006 Sigmoidoscopy/CT colonography 2006 Pneumococcal 50+ years Vaccine (2 of 2 - PPSV23) 2018 2017 Respiratory Syncytial Virus (RSV) or age 60 yrs+ (1 - Risk 60-74 years 1-dose series) 2021 Shingles vaccine (2 of 2) 10/12/2023 08/17/2023 COVID-19 Vaccine ( season) 2023 02/13/2023, 03/02/2021, 08/24/2020, Additional history exists Annual Wellness Visit (Medicare Advantage) 04/06/2024 Flu vaccine (Season Ended) 2024 02/13/2023, GFR test (Diabetes, CKD 3-4, OR last GFR 15-59) 01/19/2025 01/20/2024, 09/03/2023, 09/02/2023, Additional history exists DTaP/Tdap/Td vaccine (2 - Tdap) 02/20/2032 02/19/2022 Pneumococcal 0-49 years Vaccine Discontinued 2017 Hepatitis A vaccine Aged Out No longe r eligible based on patient's age to complete this topic Hepatitis B vaccine Aged Out No longe r eligible based on patient's age to complete this topic Hib vaccine Aged Out No longer eligi ble based on patient's age to complete this topic Meningococcal (ACWY) vaccine Aged Out No longer eligible based on patient's age to complete this topic Meningococcal B vaccine Aged Out No l onger eligible based on patient's age to complete this topic Polio vaccine Aged Out No longer elig ible based on patient's age to complete this topic Procedures Procedure Name Priority Date/Time Associated Diagnosis Comments COMPREHENSIVE METABOLIC PANEL STAT 01/20/2024 11:15 PM EDT from Last 3 Months or Most Recently Relevant to Health Maintenance Results * (ABNORMAL) CMP (01/20/2024 11:15 PM EDT) Sodium 140 136 - 145 mmol/L 01/20/2024 11:15 PM EDT [facility] Potassium 4.6 3.7 - 5.3 mmol/L 01/20/2024 11:15 PM EDT [facility] Comment: Specimen hemolysis has exceeded the interference as defined by Paul. Value may be falsely increased. Suggest recollection if clinically indicated. Chloride 106 98 - 107 mmol/L 01/20/2024 11:15 PM EDT [facility] CO2 24 20 - 31 mmol/L 01/20/2024 11:15 PM T [facility] Anion Gap 10 9 - 16 mmol/L 01/20/2024 11:15 PM EDT [facility] Glucose 97 74 - 99 mg/dL 01/20/2024 11:15 PM T [facility] BUN 17 8 - 23 mg/dL 01/20/2024 11:15 PM T [facility] Creatinine 1.2(H) 0.50 - 0.90 mg/dL 01/20/2024 11:15 PM T [facility] Est, Glom Filt Rate 54(L) >60 mL/min/1.7 3m2 01/20/2024 11:15 PM EDT [facility] Comment: These results are not intended for use in patients <18 years of age. eGFR results are calculated without a race factor using the 2020 CKD-EPI equation. Careful clinical correlation is recommended, particularly when comparing to results calculated using previous equations. The CKD-EPI equation is less accurate in patients with extremes of muscle mass, extra-renal metabolism of creatine, excessive creatine ingestion, or following therapy that affects renal tubular secretion. BUN/Creatinine Ratio 14 9 - 20 01/20/2024 11:15 PM EDT [facility] Calcium 8.8 8.6 - 10.4 mg/dL 01/20/2024 11:15 PM T [facility] Total Protein 6.5(L) 6.6 - 8.7 g/dL 01/20/2024 11:15 PM T [facility] Albumin 3.9 3.5 - 5.2 g/dL 01/20/2024 11:15 PM T [facility] Albumin/Globulin Ratio 1.5 1.0 - 2.5 01/20/2024 11:15 PM EDT [facility] Total Bilirubin 0.2 0.00 - 1.20 mg/dL 01/20/2024 11:15 PM T [facility] Alkaline Phosphatase 86 35 - 104 U/L 01/20/2024 11:15 PM EDT [facility] ALT 20 10 - 35 U/L 01/20/2024 11:15 PM T [facility] AST 27 10 - 35 U/L 01/20/2024 11:15 PM T [facility] Blood BLOOD SPECIMEN / Unknown 01/20/2024 11:15 PM EDT 01/21/2024 12:31 AM EDT us Rochelle Lopes MD CHEMISTRY ORDERABLES Final Resul t [facility] [address] [place] [address], [facility] [phone] from Last 3 Months or Most Recently Relevant to Health Maintenance Insurance Advance Directives Documents on File Type Date Recorded Patient Quenching Car Operator Expl anation ACP-Advance Directive 09/04/2023 1:02 PM * Full Code (Latest Code Status on File) Date Activated Date Inactivated Comments 08/24/2023 3:10 PM 09/03/2023 6:08 PM Care Teams Commercial Maintenance Technician Relationship Specialty Start Date End Date Adelaida Carrion, DIVISION ORDER ANALYST - BICYCLE TAXI DRIVER [address] [place] [address] PCP - General Nurse Practitioner 01/04/18
--- NOTE | 2024-08-25 04:09 | ECG_ITS ---
[facility] Test Date: 2024-08-25 Pat Name: MICHELLE BE Department: Room: - Gender: Female Review Manager: : [id number] Requested By: [id number] Order Number: [id number] Reading MD: KALLI KIMBLE M.D. Measurements Intervals [place] Rate: 70 P: 46 SD: 154 QRS: 22 QRSD: 132 T: 10 QT: 396 QTc: 416 Interpretive Statements 1100 Sinus rhythm 2450 Right bundle branch block 9150 abnormal ECG Compared to ECG 03/02/2024 02:15:23 No significant changes Electronically Signed On 08-25-2024 7:05:11 EDT by KALLI KIMBLE M.D.
--- OUTSIDE RECORDS SUMMARY | 2024-08-25 04:09 | XMS_ITS ---
Author Organization [facility] Address [address] [place] [address] Care Team Providers Care Group Cio Name Role Phone Miriam Suarez DO Unavailable [phone] Adelaida Carrion NP Unavailable [phone] José Luis Roberts MD Primary Care Provider [phone] Bong Rosado MA Unavailable Unavailable Juany Leggett Unavailable Chronic Care Management (CCM) Status:Enrolled (Active) Start date:07/23/2023 Enrollment date:07/23/2023 Enrollment reason:Identified as moderate risk Overview Please assess for Care Management needs. 07/23/23, 2:13 PM - Mathew Parra LPN- Patient gives verbal consent to be enrolled in CCM Program and understands there could be a bill for this service. Financial Hardship Waiver completed and approved for $0 out of pocket for patient. Case Team Name Relationship Phone Bong Rosado MA(Responsible Staff) Continued Care and Services Coordination
--- OUTSIDE RECORDS SUMMARY | 2024-08-25 04:09 | XMS_ITS | Encounter Summary ---
Author Organization [facility] Address [address] [place] [address] Care Team Providers Care Director Of Marketing Operations Name Role Phone DanielaSauravkayleen GRAHAM Unavailable [phone] Adelaida Carrion NP Unavailable [phone] José Luis Roberts MD Primary Care Provider Bong Rosado MA Unavailable Unavailable Juany Leggett Unavailable Encounter Details Date Type Department Care Team (Late st Contact Info) Description 08/16/2024 Bamboo flowsheet [facility] [address] [place] [address] Adelaida Carrion, BRIANA [address] [place] [id number] Social History Tobacco Use Types Packs/Day Years [...] declined 08/16/2023 How often do you attend yarsani or orthodoxy serv ices? Never 08/16/2023 Do you belong to any clubs o r organizations such as yarsani groups, unions, fraternal or athletic groups, or [...] Recorded Patient Health Questionnaire-2 Score 2 09/21/2023 [facility] - [...] place to sleep or slept in a fci (including now)? No 08/16/2023 Housing Stability Vital [...] Visit [facility] [address] [place] [address] Adelaida Carrion NP [address] [place] [id number] 11/30/2024 12:40 PM EDT Office Visit [facility] [address] [address] [place] [address] Juany Caballero NP [address] [place] documented as of this encounter Visit Diagnoses Not on filedocumented in this encounter Additional Health Concerns Assessment Noted Time PHQ-9 Depression Total Score: 8 05/18/19 24 5:00 PM EST documented as of this encounter Care Teams Director Of Marketing Operations Relationship Specialty Start Date End Date José Luis Roberts MD [address] [place] [address] PCP - General Family Medicine 02/02/24 Miriam Suarez DO [address] [facility] [place] [address] Referring Physician Neurology 06/29/23 Adelaida Carrion NP [address] [place] [id number] Nurse Practitioner Family Medicine 01/27/24 Bong Rosado MA Family Medicine 02/12/24 Juany Leggett PA [address] [facility] [address] [place] [address] Physician Assembler Clip [employer] Sunglasses Neurology 07/26/24 documented as of this encounter
--- OUTSIDE RECORDS SUMMARY | 2024-08-25 04:09 | XMS_ITS | Encounter Summary ---
Author Organization [facility] Address [address] [place] [address] Care Team Providers Care Oxygen Plant Operator Name Role Phone DanielaSauravle DO Unavailable [phone] Adelaida Carrion AUTOMATION MACHINE OPERATOR Unavailable [phone] José Luis Roberts MD Primary Care Provider [phone] Bong Rosado MA Unavailable Unavailable Juany Leggett Unavailable Encounter Details Date Type Department Care Team (Late st Contact Info) Description 03/02/2024 Orders Only [facility] [address] [place] [address] Adelaida Carrion, BRIANA [address] [place] [address] Social History Tobacco Use Types Packs/Day Years [...] declined 08/16/2023 How often do you attend hindu or moravian serv ices? Never 08/16/2023 Do you belong to any clubs o r organizations such as hindu groups, unions, fra9DIAMOND or athletic groups, or school groups? No [...] Recorded Patient Health Questionnaire-2 Score 2 09/21/2023 [facility] Occupat ional Health - Occupational Stress [...] place to sleep or slept in a fdc (including now)? No 08/16/2023 Housing Stability Vital [...] Visit [facility] [address] [place] [address] Adelaida Carrion NP [address] [place] [address] 11/30/2024 12:40 PM EDT Office Visit [facility] [address] [place] [phone] Juany Caballero NP [address] [place] documented as of this encounter Procedures Procedure Name Priority Date/Time Associated Diagnosis Comments SCANNED LABS Routine 03/02/2024 7:33 AM EST documented in this encounter Results * SCANNED LABS (03/02/2024 7:33 AM EST) us Adelaida Carrion AUTOMATION MACHINE OPERATOR LAB CHG PERFORMABLES Final Resu lt documented in this encounter Visit Diagnoses Not on filedocumented in this encounter Additional Health Concerns Assessment Noted Time PHQ-9 Depression Total Score: 8 05/18/19 24 5:00 PM EST documented as of this encounter Care Teams Oxygen Plant Operator Relationship Specialty Start Date End Date José Luis Roberts MD [address] [place] [address] PCP - General Family Medicine 02/02/24 Miriam Suarez DO [address] [place], [place] [id number] Referring Physician Neurology 06/29/23 Adelaida Carrion NP [address] [place] [phone] Nurse Practitioner Family Medicine 01/27/24 Bong Rosado MA Family Medicine 02/12/24 Juany Leggett PA [address] [place] [id number] Physician Personal Shopper Neurology 07/26/24 documented as of this encounter
--- OUTSIDE RECORDS SUMMARY | 2024-08-25 04:09 | XMS_ITS | Encounter Summary ---
Author Organization [facility] Address [address] [place] [address] Care Team Providers Care Senior Sas Developer Name Role Phone Adelaida Carrion NP Unavailable [phone] José Luis Roberts MD Primary Care Provider [phone] Miriam Suarez DO Unavailable [phone] Mathew Parra LPN Unavailable Unavailable Diana De Leon LPN Unavailable Unavailable Unallocated, Noms Provider Primary Care Provi kellee Adelaida Carrion NP Unavailable [phone] José Luis Roberts MD Primary Care Provider [phone] Bong Rosado MA Unavailable Unavailable Juany Leggett Unavailable Encounter Details Date Type Department Care Team (Late st Contact Info) Description 09/18/2023 Clinisync Result Encounter [facility] External Department Unsolicited Adelaida Carrion NP [address] [place] [place] [address] Social History Tobacco Use Types Packs/Day Years [...] declined 08/16/2023 How often do you attend adventist or jainism serv ices? Never 08/16/2023 Do you belong to any clubs o r organizations such as adventist groups, unions, fraternal or athletic groups, or [...] Recorded Patient Health Questionnaire-2 Score 2 09/21/2023 [facility] of Occupat ional Health - Occupational [...] place to sleep or slept in a half-way (including now)? No 08/16/2023 Housing Stability Vital [...] PM EDT documented as of this encounter Functional Status * Over the past 2 weeks, how often have you been bothered by any of the following problems? Question Answer Date of Assessment Author Little interest or pleasure in doing things Several days 09/21/2023 10:31 AM EDT LATHA LU Feeling down, depressed, or hopeless Several days 09/21/2023 10:31 AM EDT LATHA LU Patient Health Questionnaire-2 Score 2 09/21/2023 10:31 AM EDT NIKI LU * If you checked off any problems on this questionnaire so far, Question Answer Date of Assessment Author How difficult have these problems made it for you to do your work, take care of things at home, or get along with other people? Not difficult at all 09/21/2023 10:31 AM EDT GABRIELA LU documented as of this encounter Plan of Treatment Upcoming Encounters Date Type Department Care Team (Late st Contact Info) Description 11/14/2024 9:40 AM EDT Office Visit [facility] [address] [place] [address] Adelaida Carrion NP [address] [place] [address] 11/30/2024 12:40 PM EDT Office Visit [facility] [address] [address] Juany Caballero NP [address] documented as of this encounter Procedures Procedure Name Priority Date/Time Associated Diagnosis Comments MM TOMOSYNTHESIS SCREENING BI 09/18/2023 1:42 PM EDT documented in this encounter Results * MM TOMOSYNTHESIS SCREENING BI (09/18/2023 1:42 PM EDT) Anatomical Region Laterality Modality Other 09/18/2023 1:42 PM EDT Narrative 09/18/2023 1:43 PM EDT The [address] [address] Mammography Report Signed Patient: NASIM BE MR#: [id number] : 1960 Acct:[id number] Age/Sex: 62 / F ADM Date: 09/18/23 Loc: MAMMO Attending Dr: Adelaida Carrion NP Ordering Physician: Adelaida Carrion NP Results: Date of Service: 09/18/23 Follow Up: Procedure(s): MM tomosynthesis screening BI Accession Number(s): [id number] cc: Adelaida Carrion NP Patient Name: NASIM BE MR#: [id number] : 1960 Exam Date: 09/18/2023 Ordering Doctor: LIVIER Carrion CNP RADIOLOGY REPORT PROCEDURE: MM TOMOSYNTHESIS SCREENING BI COMPARISON: MM TOMOSYNTHESIS SCREENING BI, 09/15/2022. MG MAMM SCREEN 3D BHUMI CAD, 06/20/2021. INDICATIONS: Screening Calculator Name NCI Breast Cancer Risk Assessment Tool 5 Year Breast Cancer Risk 2.20% Lifetime Breast Cancer Risk 10.30% Personal Breast Cancer No Personal Ovarian Cancer No Treatments None Family Cancers None LOCATION: [facility] BREAST COMPOSITION: There are scattered areas of fibroglandular density. FINDINGS: DIAGNOSTIC CATEGORY 2--BENIGN FINDING. NO CHANGE FROM COMPARISON. Scattered benign-appearing calcifications are present. Scattered benign-appearing lymph nodes are present. RIGHT BREAST: No significant suspicious finding. Linear scar marker upper inner quadrant LEFT BREAST: No significant suspicious finding. RECOMMENDATIONS: ROUTINE MAMMOGRAM AND CLINICAL EVALUATION IN 12 MONTHS. PLEASE NOTE: A NORMAL MAMMOGRAM DOES NOT EXCLUDE THE POSSIBILITY OF BREAST CANCER. A CLINICALLY SUSPICIOUS PALPABLE LUMP SHOULD BE BIOPSIED. Dictated by: Harvey Gamble MD on 09/18/2023 at 13:41 Approved by: Harvey Gamble MD on 09/18/2023 at 13:42 Dictated By: Harvey Gamble M.D. Signed By: 09/18/23 1343 DD/ 134 TD/TT: Software Qa Manager: Procedure Note Radiology, Radiologist, - 09/18/2023 [place] [address] Mammography Report Signed Patient: NASIM BE LMR#: [id number] : 1960cct:[id number] Age/Sex: 62 / FADM Date: 09/18/23 Loc: MAMMO Attending Dr: Adelaida Carrion CUSTOMER ADVISOR Ordering Physician: Adelaida Carrion NPResults: Date of Service: 09/18/23Follow Up: Procedure(s): MM tomosynthesis screening BI Accession Number(s): [id number] cc: Adelaida Carrion CUSTOMER ADVISOR Patient Name: NASIM BE MR#: [id number] : 1960 Exam Date: 09/18/2023 Ordering Doctor: LIVIER Carrion CNP RADIOLOGY REPORT PROCEDURE: MM TOMOSYNTHESIS SCREENING BI COMPARISON: MM TOMOSYNTHESIS SCREENING BI, 09/15/2022. MG MAMM QALAVT4O BHUMI CAD, 06/20/2021. INDICATIONS: Screening Calculator Name NCI Breast Cancer Risk Assessment Tool 5 Year Breast Cancer Risk 2.20% Lifetime Breast Cancer Risk 10.30% Personal Breast Cancer No Personal Ovarian Cancer No Treatments None Family Cancers None LOCATION: [facility] BREAST COMPOSITION: There are scattered areas of fibroglandulardensity. FINDINGS: DIAGNOSTIC CATEGORY 2--BENIGN FINDING. NO CHANGE FROM COMPARISON. Scattered benign-appearing calcifications are present. Scattered benign-appearing lymph nodes are present. RIGHT BREAST: No significant suspicious finding. Linear scar markerupper inner quadrant LEFT BREAST: No significant suspicious finding. RECOMMENDATIONS: ROUTINE MAMMOGRAM AND CLINICAL EVALUATION IN 12 MONTHS. PLEASE NOTE: A NORMAL MAMMOGRAM DOES NOT EXCLUDE THE POSSIBILITY OFBREAST CANCER. A CLINICALLY SUSPICIOUS PALPABLE LUMP SHOULD BE BIOPSIED. Dictated by: Harvey Gamble MD on 09/18/2023 at 13:41 Approved by: Harvey Gamble MD on 09/18/2023 at 13:42 Dictated By: Harvey Gamble M.D. Signed By:09/18/23 1343 DD/ 1342 TD/TT: Software Qa Manager: Adelaida Carrion NP [facility] Final Result documented in this encounter Visit Diagnoses Not on filedocumented in this encounter Additional Health Concerns Assessment Noted Time PHQ-9 Depression Total Score: 8 05/18/19 24 5:00 PM EST documented as of this encounter Care Teams Senior Sas Developer Relationship Specialty Start Date End Date José Luis Roberts MD [address] [place] [address] PCP - General Family Medicine 05/18/23 01/26/24 Unallocated, Noms MD Mariela [address] [place] [address] PCP - General Family Medicine 01/27/24 02/01/24 José Luis Roberts MD [address] [place] [place] [address] PCP - General Family Medicine 02/02/24 Adelaida Carrion NP Referring Physician Nurse Practitioner 10/14/22 Miriam Suarez DO [address] [place] [address] Referring Physician Neurology 06/29/23 Mathew Parra LPN Licensed Practical Nurse Family Medicine 07/23/23 Diana De Leon LPN Licensed Practical Nurse Family Medicine 12/18/23 Adelaida Carrion, BRIANA [address] [place] [address] Nurse Practitioner Family Medicine 01/27/24 Bong Rosado MA Family Medicine 02/12/24 Juany Leggett PA [address] [place] [address] Physician Intervention Nurse Neurology 07/26/24 documented as of this encounter
--- OUTSIDE RECORDS SUMMARY | 2024-08-25 04:09 | XMS_ITS | Encounter Summary ---
Author Organization [facility] Address [address] [place] [address] Care Team Providers Care Police Shift Commander Name Role Phone Miriam Suarez DO Unavailable [phone] Adelaida Carrion NP Unavailable [phone] José Luis Roberts MD Primary Care Provider [phone] Bong Rosado MA Unavailable Unavailable Juany Leggett Unavailable Reason for Visit * Reason Onset Date Comments Med Refill 07/08/2024 Encounter Details Date Type Department Care Team (Late st Contact Info) Description 07/08[facility]2024 [facility] [address] [place] [address] José Luis Roberts MD [address] [place] [address] Social History Tobacco Use Types Packs/Day Years [...] declined 08/16/2023 How often do you attend rastafarian or gnosticist serv ices? Never 08/16/2023 Do you belong to any clubs o r organizations such as rastafarian groups, unions, fraternal or athletic groups, or [...] Recorded Patient Health Questionnaire-2 Score 2 09/21/2023 [facility] of Occupat ional Health - Occupational Stress [...] place to sleep or slept in a jail (including now)? No 08/16/2023 Housing Stability Vital [...] encounter Miscellaneous Notes * Telephone Encounter - VALERIE LU - 07/19/2024 9:59 AM EDT Text Change Management Coordinator Hi, this is Nasim Ingram. My date of versus [phone] was calling about the dilkon that I requested to be called in yesterday. There is nothing at drug more yet. Thank you. * Telephone Encounter - VALERIE LU - 07/18/2024 10:57 AM EDT Text Change Management Coordinator Adelaida Fraser, this is Nasim Ingram. Surendra [phone] need to have you call in a prescription for [place] to the pharmacy at [facility], Dr. Ricci, other yeast infection, thank you. * Telephone Encounter - Adelaida Carrion NP - 07/13/2024 9:04 PM EDT Ordered by pain mgmt documented in this encounter Plan of Treatment Upcoming Encounters Date Type Department Care Team (Late st Contact Info) Description 11/14/2024 9:40 AM EDT Office Visit [facility] [address] [place] [address] Adelaida Carrion NP [address] [place] [address] 11/30/2024 12:40 PM EDT Office Visit [facility] [address] [place] [address] Juany Caballero NP [address] [place], [place] documented as of this encounter Visit Diagnoses Not on filedocumented in this encounter Additional Health Concerns Assessment Noted Time PHQ-9 Depression Total Score: 8 05/18/19 24 5:00 PM EST documented as of this encounter Care Teams Police Shift Commander Relationship Specialty Start Date End Date José Luis Roberts MD [address] [place] [address] PCP - General Family Medicine 02/02/24 Miriam Suarez DO [address] [place], [place] [address] Referring Physician Neurology 06/29/23 Adelaida Carrion NP [address] [place] [address] Nurse Practitioner Family Medicine 01/27/24 Bong Rosado MA Family Medicine 02/12/24 Juany Leggett PA [address] [place] [address] Physician Forensic Accountant Neurology 07/26/24 documented as of this encounter
--- OUTSIDE RECORDS SUMMARY | 2024-08-25 04:09 | XMS_ITS | Encounter Summary ---
Author Organization [facility] Address [address] [place] [address] Care Team Providers Care Product Management Analyst Name Role Phone DanielaSauravle DO Unavailable [phone] Adelaida Carrion ASSISTANT TRACK COACH Unavailable [phone] José Luis Roberts MD Primary Care Provider Bong Rosado MA Unavailable Unavailable Juany Leggett Unavailable Encounter Details Date Type Department Care Team (Late st Contact Info) Description 03/17/2024 Orders Only [facility] [address] [place] [address] Adelaida Carrion, BRIANA [address] [place] [address] Social History Tobacco Use Types Packs/Day Years [...] declined 08/16/2023 How often do you attend mu-ism or orthodox serv ices? Never 08/16/2023 Do you belong to any clubs o r organizations such as mu-ism groups, unions, fraIceWEB or athletic groups, or school groups? No [...] Recorded Patient Health Questionnaire-2 Score 2 09/21/2023 [facility] of Occupat ional Health - [...] place to sleep or slept in a custodial (including now)? No 08/16/2023 Housing Stability Vital [...] Visit [facility] [address] [place] [address] Adelaida Carrion NP [address] [place] [address] 11/30/2024 12:40 PM EDT Office Visit [facility] [address] [place] [address] Juany Caballero NP [address] [place] documented as of this encounter Procedures Procedure Name Priority Date/Time Associated Diagnosis Comments ECG 12-LEAD Routine 03/17/2024 9:17 AM EST documented in this encounter Results * ECG 12 lead (03/17/2024 9:17 AM EST) us Adelaida Carrion NP ECG ORDERABLES Final Result documented in this encounter Visit Diagnoses Not on filedocumented in this encounter Additional Health Concerns Assessment Noted Time PHQ-9 Depression Total Score: 8 05/18/19 24 5:00 PM EST documented as of this encounter Care Teams Product Management Analyst Relationship Specialty Start Date End Date José Luis Roberts MD [address] [place] [address] PCP - General Family Medicine 02/02/24 Miriam Suarez DO [address] [place] [id number] Referring Physician Neurology 06/29/23 Adelaida Carrion NP [address] [place] [address] Nurse Practitioner Family Medicine 01/27/24 Bong Rosado MA Family Medicine 02/12/24 Juany Leggett PA [address] [place] [address] Physician Welt Trimming Machine Operator Neurology 07/26/24 documented as of this encounter
--- OUTSIDE RECORDS SUMMARY | 2024-08-25 04:09 | XMS_ITS | Encounter Summary ---
Author Organization [facility] Address [address] [place] [address] Care Team Providers Care Senior Quality Engineer Name Role Phone Adelaida Carrion NP Unavailable [phone] José Luis Roberts MD Primary Care Provider [phone] Miriam Suarez DO Unavailable [phone] Mathew Parra LPN Unavailable Unavailable Diana De Leon LPN Unavailable Unavailable Unallocated, Noms Provider Primary Care Provi kellee Adelaida Carrion NP Unavailable [phone] José Luis Roberts MD Primary Care Provider [phone] Bong Rosado MA Unavailable Unavailable Juany Leggett Unavailable Encounter Details Date Type Department Care Team (Late st Contact Info) Description 09/21/2023 Orders Only [facility] [address] [place] [address] Adelaida Carrion BAND TOP MAKER [address] [facility] [place] [address] Social History Tobacco Use Types Packs/Day Years [...] declined 08/16/2023 How often do you attend sabianism or restorationism serv ices? Never 08/16/2023 Do you belong to any clubs o r organizations such as sabianism groups, unions, fraternal or athletic groups, or [...] Recorded Patient Health Questionnaire-2 Score 2 09/21/2023 [facility] - Occupational Stress Questionnaire Answer [...] place to sleep or slept in a halfway (including now)? No 08/16/2023 Housing Stability Vital [...] Office Visit [facility] [address] [place] [address] Adelaida Carrion NP [address] [place] [address] 11/30/2024 12:40 PM EDT Office Visit [facility] [address] [place] [phone] Juany Caballero NP [address] [place] [address] documented as of this encounter Procedures Procedure Name Priority Date/Time Associated Diagnosis Comments MM SCREENING MAMM WITH 3D JOSEF - US AND ADDITIONAL Routine 09/18/2023 8:06 AM EDT documented in this encounter Results * MM SCREENING MAMM WITH 3D JOSEF - US AND ADDITIONAL (09/18/2023 8:06 AM EDT) Anatomical Region Laterality Modality Radiographic Nelda ging us Adelaida Carrion NP IMG XR PROCEDURES Final Result documented in this encounter Visit Diagnoses Not on filedocumented in this encounter Additional Health Concerns Assessment Noted Time PHQ-9 Depression Total Score: 8 05/18/19 24 5:00 PM EST documented as of this encounter Care Teams Senior Quality Engineer Relationship Specialty Start Date End Date José Luis Roberts MD [address] [place] [address] PCP - General Family Medicine 05/18/23 01/26/24 Unallocated, Nomluly Sierra MD [address] [place] [address] PCP - General Family Medicine 01/27/24 02/01/24 José Luis Roberts MD [address] [place] [address] PCP - General Family Medicine 02/02/24 Adelaida Carrion NP Referring Physician Nurse Practitioner 10/14/22 Miriam Suarez DO [address] [place] [address] Referring Physician Neurology 06/29/23 Mathew Parra LPN Licensed Practical Nurse Family Medicine 07/23/23 Diana De Leon LPN Licensed Practical Nurse Family Medicine 12/18/23 Adelaida Carrion, BRIANA [address] [place] [address] Nurse Practitioner Family Medicine 01/27/24 Bong Rosado MA Family Medicine 02/12/24 Juany Leggett PA [address] [place] [address] Physician Co Chairman Neurology 07/26/24 documented as of this encounter
--- OUTSIDE RECORDS SUMMARY | 2024-08-25 04:09 | XMS_ITS | Encounter Summary ---
Author Organization [facility] Address [address] [place] [address] Care Team Providers Care Aoc Operations Intelligence Chief Name Role Phone Adelaida Carrion NP Unavailable [phone] José Luis Roberts MD Primary Care Provider [phone] Miriam Suarez DO Unavailable [phone] Mathew Parra LPN Unavailable Unavailable Diana De Leon LPN Unavailable Unavailable Unallocated, Noms Provider Primary Care Provi kellee Adelaida Carrion NP Unavailable [phone] José Luis Roberts MD Primary Care Provider [phone] Bong Rosado MA Unavailable Unavailable Juany Leggett Unavailable Encounter Details Date Type Department Care Team (Late st Contact Info) Description 09/02/2023 Orders Only [facility] [address] [place] [address] Shaikh Alberto MD [address] [place] [address] Social History Tobacco Use Types [...] declined 08/16/2023 How often do you attend episcopalian or confucianist serv ices? Never 08/16/2023 Do you belong to any clubs o r organizations such as episcopalian groups, unions, fraternal or athletic groups, or [...] Answer Date Recorded Patient Health Questionnaire-2 Score 0 08/17/2023 [facility] - Occupational Stress Questionnaire Answer [...] place to sleep or slept in a [place] facility (including now)? No 08/16/2023 Housing Stability Vital [...] Office Visit [facility] [address] [place] [address] Adelaida Carrion NP [address] [place] [address] 11/30/2024 12:40 PM EDT Office Visit [facility] [address] [place] [address] Juany Caballero NP [address] [place], [place] documented as of this encounter Procedures Procedure Name Priority Date/Time Associated Diagnosis Comments XR CHEST 2 VIEWS Routine 09/02/2023 9:12 AM EDT documented in this encounter Results * XR chest 2 views (09/02/2023 9:12 AM EDT) Anatomical Region Laterality Modality Chest Radiographic Nelda ging us Shaikh Dolly JAIMES IMG XR PROCEDURES Final Result documented in this encounter Visit Diagnoses Not on filedocumented in this encounter Additional Health Concerns Assessment Noted Time PHQ-9 Depression Total Score: 8 05/18/19 24 5:00 PM EST documented as of this encounter Care Teams Aoc Operations Intelligence Chief Relationship Specialty Start Date End Date José Luis Roberts MD [address] [place] [address] PCP - General Family Medicine 05/18/23 01/26/24 Unallocated, Johan Sierra MD [address] [place] [address] PCP - General Family Medicine 01/27/24 02/01/24 José Luis Roberts MD [address] [place] [address] PCP - General Family Medicine 02/02/24 Adelaida Carrion NP Referring Physician Nurse Practitioner 10/14/22 Miriam Suarez DO [address] [place] [address] Referring Physician Neurology 06/29/23 Mathew Parra LPN Licensed Practical Nurse Family Medicine 07/23/23 Diana De Leon LPN Licensed Practical Nurse Family Medicine 12/18/23 Adelaida Carrion NP [address] [place] [address] Nurse Practitioner Family Medicine 01/27/24 Bong Rosado MA Family Medicine 02/12/24 Juany Leggett PA [address] [place] [address] Physician Labels Molder Neurology 07/26/24 documented as of this encounter
--- OUTSIDE RECORDS SUMMARY | 2024-08-25 04:09 | XMS_ITS | Encounter Summary ---
Author Organization [facility] Address [address] [place] [address] Care Team Providers Care Institutional Aide Name Role Phone Miriam Suarez DO Unavailable [phone] Adelaida Carrion NP Unavailable [phone] José Luis Roberts MD Primary Care Provider [phone] Bong Rosado MA Unavailable Unavailable Juany Leggett Unavailable Encounter Details Date Type Department Care Team (Late st Contact Info) Description 03/08/2024 Orders Only [facility] [address] [place] [address] Dennis Steel DO Social History Tobacco Use Types Packs/Day Years [...] declined 08/16/2023 How often do you attend presybeterian or islam serv ices? Never 08/16/2023 Do you belong to any clubs o r organizations such as presybeterian groups, unions, fraternal or athletic groups, or [...] Recorded Patient Health Questionnaire-2 Score 2 09/21/2023 [facility] - Occupational Stress Questionnaire [...] place to sleep or slept in a senior care (including now)? No 08/16/2023 Housing Stability Vital [...] Visit [facility] [address] [place] [address] Adelaida Carrion NP [address] [place] [address] 11/30/2024 12:40 PM EDT Office Visit [facility] [address] [place] [address] Juany Caballero NP [address] [place] documented as of this encounter Procedures Procedure Name Priority Date/Time Associated Diagnosis Comments MR BRAIN W AND WO CONTRAST (ROUTINE) Routine 03/08/2024 11:01 AM EST EEG AWAKE AND ASLEEP Routine 03/08/2024 8:34 AM EST documented in this encounter Results * MR brain w and wo contrast routine (03/08/2024 11:01 AM EST) Anatomical Region Laterality Modality Brain Magnetic Resonan ce us Dennis Steel DO IMG MRI PROCEDURES Final Result * EEG AWAKE AND ASLEEP (03/08/2024 8:34 AM EST) Anatomical Region Laterality Modality Radiographic Nelda ging us Dennis Steel DO IMG XR PROCEDURES Final Result documented in this encounter Visit Diagnoses Not on filedocumented in this encounter Additional Health Concerns Assessment Noted Time PHQ-9 Depression Total Score: 8 05/18/19 24 5:00 PM EST documented as of this encounter Care Teams Institutional Aide Relationship Specialty Start Date End Date José Luis Roberts MD [address] [place] [address] PCP - General Family Medicine 02/02/24 Miriam Suarez DO [address] [place] [address] Referring Physician Neurology 06/29/23 Adelaida Carrion NP [address] [place] [address] Nurse Practitioner Family Medicine 01/27/24 Bong Rosado MA Family Medicine 02/12/24 Juany Leggett PA [address] [facility] [address] [place] [address] Physician Flakeboard Line Tender Neurology 07/26/24 documented as of this encounter
--- OUTSIDE RECORDS SUMMARY | 2024-08-25 04:10 | XMS_ITS | Clinical Summary ---
Author Organization [facility] Address [address] [place] [address] Care Team Providers Care Billet Sawyer Name Role Phone Unavailable Primary Care Provider Unavailabl e Social History Tobacco Use Types Packs/Day Years Used Date Smoking Tobacco: Never Assessed Sex and Gender Information Value Date Recorded Sex Assigned at Not on file Gender Identity Not on file Sexual Orientation Not on file Last Filed Vital Signs Vital Sign Reading Time Taken Comments Blood Pressure - - Pulse - - Temperature - - Respiratory Rate - - Oxygen Saturation - - Inhaled Oxygen Concentration - - Weight 136 kg (300 lb) 07/15/2018 9:18 AM EDT Height 162.6 cm (5' 4 ) 02/08/2019 10:47 AM EST Body Mass Index 51.49 07/15/2018 9:18 AM EDT Plan of Treatment Not on file
--- OUTSIDE RECORDS SUMMARY | 2024-08-25 04:10 | XMS_ITS | Encounter Summary ---
Author Organization [facility] Address [address] [place] [address] Care Team Providers Care Hip Hop Artist Name Role Phone Adelaida Carrion NP Unavailable [phone] José Luis Roberts MD Primary Care Provider [phone] José Luis Roberts MD Primary Care Provider [phone] Miriam Suarez DO Unavailable [phone] Bonfield, Ardana BLOOD BANK COORDINATOR Unavailable Unavailable Aida, Ardana BLOOD BANK COORDINATOR Unavailable Unavailable Diana De Leon BLOOD BANK COORDINATOR Unavailable Unavailable Unallocated, Noms Provider Primary Care Provi kellee Adelaida Carrion CW OPERATOR Unavailable [phone] José Luis Roberts MD Primary Care Provider [phone] Bong Rosado MA Unavailable Unavailable Juany Leggett Unavailable Encounter Details Date Type Department Care Team (Late st Contact Info) Description 01/09/2023 Abstract [facility] [address] [facility] [address] [place] [address] Travon Hines PA [address] [facility] [address] [place] [address] Social History Tobacco Use Types Packs/Day Years Used Date Smoking Tobacco: Former Cigarettes Smokeless Tobacco: Never Alcohol Use Standard Drinks/Week Comments Never 0 (1 standard drink = 0.6 oz pure alcohol) caffeine intake: 1-2 cups per day. Comments Unknown Sex and Gender Information Value [...] 9:40 AM EDT Office Visit [facility] [address] [place] [phone] Adelaida Carrion, BRIANA [address] [place] [address] 11/30/2024 12:40 PM EDT Office Visit [facility] [address] [phone] Juany Caballero NP [address] [place] [address] documented as of this encounter Visit Diagnoses Not on filedocumented in this encounter Care Teams Hip Hop Artist Relationship Specialty Start Date End Date José Luis Roberts MD PCP - General Family Medicine 10/14/22 05/17/23 José Luis Roberts MD [address] [place] [phone] PCP - General Family Medicine 05/18/23 01/26/24 Unallocated, Johan Sierra MD [address] [place] [address] PCP - General Family Medicine 01/27/24 02/01/24 José Luis Roberts MD [address] [place] [phone] PCP - General Family Medicine 02/02/24 Adelaida Carrion NP Referring Physician Nurse Practitioner 10/14/22 Miriam Suarez DO [address] [place] [address] Referring Physician Neurology 06/29/23 Mathew Parra LPN Registered Nurse Family Medicine 07/07/23 07/08/23 Mathew Parra LPN Licensed Practical Nurse Family Medicine 07/23/23 Diana De Leon LPN Licensed Practical Nurse Family Medicine 12/18/23 Adelaida Carrion NP [address] [place] [place] [address] Nurse Practitioner Family Medicine 01/27/24 Bong Rosado MA Family Medicine 02/12/24 Juany Leggett PA [address] [place] [address] Physician Barrel Rifler Neurology 07/26/24 documented as of this encounter
--- OUTSIDE RECORDS SUMMARY | 2024-08-25 04:10 | XMS_ITS | Referral Summary ---
Author Organization [facility] Address [address] [place] [address] Care Team Providers Care Development Writer Name Role Phone Unavailable Primary Care Provider [...]
--- OUTSIDE RECORDS SUMMARY | 2024-08-25 04:10 | XMS_ITS | Encounter Summary ---
Author Organization [facility] Address [address] [place] [address] Care Team Providers Care Carpenter Mate Name Role Phone Adelaida Carrion NP Unavailable [phone] José Luis Roberts MD Primary Care Provider [phone] José Luis Roberts MD Primary Care Provider [phone] Miriam Suarez DO Unavailable [phone] Lovilia, Ardana PROFESSOR IN FAMILY STUDIES Unavailable Unavailable Aida, Ardana PROFESSOR IN FAMILY STUDIES Unavailable Unavailable Diana De Leon PROFESSOR IN FAMILY STUDIES Unavailable Unavailable Unallocated, Noms Provider Primary Care Provi kellee Adelaida Carrion NP Unavailable [phone] José Luis Roberts MD Primary Care Provider [phone] Bong Rosado MA Unavailable Unavailable Juany Leggett Unavailable Encounter Details Date Type Department Care Team (Late st Contact Info) Description 11/14/2022 Abstract [facility] [address] [facility] [address] [place] [address] Travon Hines PA 112 [facility] [address] [place] [address] Social History Tobacco Use Types Packs/Day Years Used Date Smoking Tobacco: Former Cigarettes Smokeless Tobacco: Never Tobacco Cessation:Counseling Given: Not Answered Alcohol Use Standard Drinks/Week Comments Never 0 [...] Office Visit [facility] [address] [place] [phone] Adelaida Carrion NP [address] [place] [address] 11/30/2024 12:40 PM EDT Office Visit [place] [facility] [address] [place] [phone] Juany Caballero NP [address] [place] [address] documented as of this encounter Visit Diagnoses Not on filedocumented in this encounter Care Teams Carpenter Mate Relationship Specialty Start Date End Date José Luis Roberts MD PCP - General Family Medicine 10/14/22 05/17/23 José Luis Roberts MD [address] [place] [phone] PCP - General Family Medicine 05/18/23 01/26/24 Unallocated, Johan Sierra MD [address] [place] [address] PCP - General Family Medicine 01/27/24 02/01/24 José Luis Roberts MD [address] [place] [phone] PCP - General Family Medicine 02/02/24 Adelaida Carrion NP Referring Physician Nurse Practitioner 10/14/22 Miriam Suarez DO [address] [place] [address] Referring Physician Neurology 06/29/23 Mathew Parra LPN Registered Nurse Family Medicine 07/07/23 07/08/23 Mathew Parra LPN Licensed Practical Nurse Family Medicine 07/23/23 Diana De Leon LPN Licensed Practical Nurse Family Medicine 12/18/23 Adelaida Carrion NP [address] [place] [phone] Nurse Practitioner Family Medicine 01/27/24 Bong Rosado MA Family Medicine 02/12/24 Juany Leggett PA [address] [place], [place] [id number] Physician Healthcare Architect Neurology 07/26/24 documented as of this encounter
--- OUTSIDE RECORDS SUMMARY | 2024-08-25 04:10 | XMS_ITS | Clinical Summary ---
Author Organization [facility] Healthcare Address [address] [place] [address] Care Team Providers Care Butt Presser Name Role Phone Miriam Suarez DO Unavailable [phone] Adelaida Carrion NP Unavailable [phone] José Luis Roberts MD Primary Care Provider Bong Rosado MA Unavailable Unavailable Juany Leggett Unavailable Allergies Active Allergy Reactions Criticality Noted Date Comments Eszopiclone Hallucinations,Anaph ylaxis High 09/21/2023 Altered mental status and non responsive Levetiracetam Hallucinations,Other Medium 12/12/2021 Milnacipran Hallucinations,Other ,Unknown Medium 12/12/2021 Other Other 12/12/2021 Penicillins Anaphylaxis High 12/12/2021 Prochlorperazine Unknown,Other Medium 12/12/2021 Tetracycline Hives,Unknown High 12/12/2021 Wound Dressing Adhesive Rash,Unknown Medium 09/19/2022 Medications Multiple Vitamins-Mineral s (BARIATRIC MULTIVITAMINS/IR ON PO) Pt taking OTC (Listia) Active biotin 5 MG tablet Pt taking OTC (Listia) Active Calcium Citrate-Vitamin D (CITRACAL + D PO) Pt taking OTC (Heatwave Interactive) Active Magnesium 400 MG capsule Pt taking OTC(velingo) Active traZODone (Desyrel) 150 MG tablet Take 150 mg by mouth at bedtime Active DULoxetine (Cymbalta) [address] capsule Take 60 mg by mouth in the morning and 60 mg before bedtime. Do not crush or chew.. Active Melatonin 12 MG tabletIndication s:from amazon Take 1 tablet by mouth at bedtime Active tiZANidine (Zanaflex) 4 MG tablet Take 4 mg by mouth every 8 (eight) hours if needed for muscle spasms 1-2 tablets 4 Active Vraylar 3 MG capsule 4 Active gabapentin (Neurontin) 300 MG capsuleIndicatio ns:Restless leg Take 1 capsule (300 mg) by mouth in the morning and 1 capsule (300 mg) before bedtime. Due now. 180 capsule 1 5 025 Active rOPINIRole (Requip) 3 MG tabletIndication s:Restless Leg Syndrome Take 1 tablet (3 mg) by mouth at bedtime 90 tablet 2 5 025 Active diclofenac (Voltaren) 50 MG EC tablet 5 Active amLODIPine (Norvasc) 10 MG tabletIndication s:Essential (primary) hypertension (CMS/HCC) Take 1 tablet (10 mg) by mouth Daily 30 tablet 5 025 Active carvedilol (Coreg) 12.5 MG tabletIndication s:Essential (primary) hypertension (CMS/HCC) Take 1 tablet (12.5 mg) by mouth in the morning and 1 tablet (12.5 mg) in the evening. Take with meals. 60 tablet 5 025 Active fluticasone (Flonase) 50 MCG/ACT nasal sprayIndications :Allergic rhinitis, unspecified Administer 2 sprays into each nostril Daily 16 g 5 025 Active losartan (Cozaar) 100 MG tabletIndication s:Essential (primary) hypertension (CMS/HCC) Take 1 tablet (100 mg) by mouth Daily 30 tablet 5 025 Active omeprazole (PriLOSEC) [address] capsuleIndicatio ns:Gastro-esopha geal reflux disease without esophagitis Take 1 capsule (20 mg) by mouth in the morning. Take before meals. 30 capsule 5 025 Active spironolactone (Aldactone) 50 MG tabletIndication s:Bilateral lower extremity edema Take 1 tablet (50 mg) by mouth Daily 30 tablet 5 025 Active fexofenadine (Naida) 180 MG tabletIndication s:Allergic rhinitis, unspecified seasonality, unspecified trigger Take 1 tablet (180 mg) by mouth Daily 30 tablet 5 025 Active amLODIPine (Norvasc) 10 MG tabletIndication s:Essential (primary) hypertension (CMS/HCC) Take 1 tablet (10 mg) by mouth Daily 30 tablet 5 025 Discontin ued(Reord er) carvedilol (Coreg) 12.5 MG tabletIndication s:Essential (primary) hypertension (CMS/HCC) Take 1 tablet (12.5 mg) by mouth in the morning and 1 tablet (12.5 mg) in the evening. Take with meals. 60 tablet 5 025 Discontin ued(Reord er) cetirizine (ZyrTEC) 10 MG tabletIndication s:Allergic rhinitis, unspecified Take 1 tablet (10 mg) by mouth Daily 30 tablet 5 025 Discontin ued(Reord er) fluticasone (Flonase) 50 MCG/ACT nasal sprayIndications :Allergic rhinitis, unspecified Administer 2 sprays into each nostril Daily 16 g 5 025 Discontin ued(Reord er) losartan (Cozaar) 100 MG tabletIndication s:Essential (primary) hypertension (CMS/HCC) Take 1 tablet (100 mg) by mouth Daily 30 tablet 5 025 Discontin ued(Reord er) omeprazole (PriLOSEC) [address] capsuleIndicatio ns:Gastro-esopha geal reflux disease without esophagitis Take 1 capsule (20 mg) by mouth in the morning. Take before meals. 30 capsule 5 025 Discontin ued(Reord er) spironolactone (Aldactone) 50 MG tabletIndication s:Bilateral lower extremity edema Take 1 tablet (50 mg) by mouth Daily 30 tablet 5 5 025 Discontin ued(Reord er) cetirizine (ZyrTEC) 10 MG tabletIndication s:Allergic rhinitis, unspecified Take 1 tablet (10 mg) by mouth Daily 30 tablet 5 5 025 Discontin ued(Ineff ective) Active Problems Problem Noted Date Diagnosed Date Bronchitis 07/27/2024 Assessment & Plan (08/16/2024 12:59 PM EDT): At last appt added trelegy 100's resolved Assessment & Plan (07/27/2024 12:48 PM EDT): Continue OTC mucus relief meds Will add trelegy for bronchitis 100's #2 samples lot [id number], exp 10/28 Fu if not better No s/s resp distress URI, acute 06/14/2024 Chronic kidney disease, stage 3a (HCC) 5 Assessment & Plan (05/12/2024 6:40 AM EST): Monitor labs at minimum every year Body mass index (BMI) 45.0-49.9, adult Primary hypertension 03/16/2024 Assessment & Plan (08/16/2024 6:33 AM EDT): Please check blood pressure daily and record DASH diet Limit caffeine Take medication as directed Contact office if chest pain, pressure, dizziness, shortness of breath, swelling legs Recommend slow position changes Current meds: amlodipine, losartan Assessment & Plan (07/27/2024 6:47 AM EDT): Please check blood pressure daily and record DASH diet Limit caffeine Take medication as directed Contact office if chest pain, pressure, dizziness, shortness of breath, swelling legs Recommend slow position changes Current meds: amlodipine, losartan Assessment & Plan (05/12/2024 6:39 AM EST): Please check blood pressure daily and record DASH diet Limit caffeine Take medication as directed Contact office if chest pain, pressure, dizziness, shortness of breath, swelling legs Recommend slow position changes Current meds: amlodipine, losartan Assessment & Plan (03/16/2024 6:32 AM EST): Please check blood pressure daily and record DASH diet Limit caffeine Take medication as directed Contact office if chest pain, pressure, dizziness, shortness of breath, swelling legs Recommend slow position changes Current meds: amlodipine, losartan Right bundle branch block (R BBB) determined by electrocardiography 03/16/2024 Assessment & Plan (03/18/2024 6:49 AM EST): At this point I will look at her past EKG's, She has had ECHO in past No symptoms, at this time I do not think that further testing is needed 03/18/24 addendum: I did review her EKG's, RBBB has been present on previous EKGs, I have reviewed the ECHO on file from 05/10/2019 at [facility], as well as ECHO report from [facility] earlier this year Well woman exam with routine gynecological exam 02/16/2024 Assessment & Plan (02/16/2024 6:57 AM EST): THIN PREP, fu as per PAP results indicate Monthly BSE Calcium/vit D supplement unless chronic conditions indicate not Exercise as chronic conditions allow Needs flu shot 01/28/2024 AVM (arteriovenous malformation) brain Vascular malformation 10/11/2023 Brain lesion 10/11/2023 Carpal tunnel syndrome, right upper limb 024 Right arm weakness 10/11/2023 Bilateral lower extremity edema 10/05/2023 Assessment & Plan (08/16/2024 6:33 AM EDT): Stable with current dose of aldactone 50mg daily Assessment & Plan (03/16/2024 10:37 AM EST): Stable with current dose of aldactone, however would like to change the pill to 1 50mg pill instead of 2 25mg pills Assessment & Plan (01/04/2024 10:19 AM EDT): Stable with current dose of aldactone We will order a chem 8 today Fu in 3 months Assessment & Plan (10/21/2023 2:03 PM EDT): Will remain on aldactone 50mg daily Check labs after 10/28/23 Fu in 2 months Assessment & Plan (10/05/2023 4:24 PM EDT): Would prefer potassium sparing diuretic, as she had a time of it during recent hospitalization for hypokalemia Will trial a low dose of spironolactone at 25mg daily Recheck basic panel on 10/12/23 Elevate legs, denies any calf pain, or dyspnea Abnormal brain MRI 08/26/2023 At risk for polypharmacy 08/26/2023 Assessment & Plan (03/16/2024 6:34 AM EST): Close monitoring and adjustments and considerations if possible Metabolic encephalopathy 08/26/2023 Assessment & Plan (05/12/2024 6:42 AM EST): Continue with neurology I did review her neuropsych notes Assessment & Plan (03/16/2024 10:24 AM EST): Has had 2-3 hospitalizations this year regarding this as well I have reviewed neurology notes as well Continue to have evaluation Assessment & Plan (09/21/2023 12:47 PM EDT): Reviewed notes from [facility]'s Former cigarette smoker 08/17/2023 Overview (08/19/2023): LDCT scan normal, 08/16/23 Assessment & Plan (08/16/2024 1:00 PM EDT): Patient meets requirements for low dose CT [...] counseled on the importance of smoking cessation. Assessment & Plan (08/17/2023 10:08 AM EDT): Patient meets requirements for low dose CT [...] counseled on the importance of smoking cessation. Encounter for screening mamm ogram for malignant neoplasm of breast 07/23/2023 Vitamin deficiency 07/23/2023 Restless leg 05/18/2023 OSMANY (obstructive sleep apnea) 05/18/2023 Assessment & Plan (05/12/2024 10:51 AM EST): You have a diagnosis of obstructive sleep [...] that supplies your machine and tubing/filters etc: [facility] Doctor that manages your OSMANY: Daniela Assessment & Plan (03/16/2024 6:31 AM EST): Compliant with PAP Assessment & Plan (01/04/2024 10:18 AM EDT): Compliant with PAP Finds its use beneficial Assessment & Plan (05/18/2023 5:17 PM EST): Compliant with PAP Hemiparesis, right 05/18/2023 Assessment & Plan (05/12/2024 6:39 AM EST): Stable with this from prior stroke Assessment & Plan (09/21/2023 12:46 PM EDT): TCM fu for this Will get pt referred to [facility] Chronic pain disorder 05/18/2023 Hiatal hernia 05/18/2023 Heart murmur 05/18/2023 Assessment & Plan (09/21/2023 12:47 PM EDT): No acute symptoms to correspond Diastolic dysfunction 05/18/2023 S/P bariatric surgery 05/18/2023 GERD (gastroesophageal reflux disease) Assessment & Plan (05/12/2024 6:40 AM EST): Recommendations: freq small meals, nothing to eat or drink at least 2 hours prior to bed, limit caffeine, alcohol, as well as spicy foods Meds to limit or avoid if possible: NSAIDS Elevate HOB if possible Current meds: omeprazole Assessment & Plan (05/18/2023 5:17 PM EST): stable Dysphagia 05/18/2023 Overactive bladder 05/18/2023 Fibromyalgia 05/18/2023 Degenerative lumbar disc 05/18/2023 Degenerative cervical disc 05/18/2023 Osteoporosis 05/18/2023 Pre-diabetes 05/18/2023 Assessment & Plan (08/16/2024 1:00 PM EDT): Currently no meds A1c: 5.6% not on current therapy Anemia 05/18/2023 Vertigo, benign paroxysmal 05/18/2023 Slurred speech 05/18/2023 Assessment & Plan (09/21/2023 12:48 PM EDT): Continue with ST PTSD (post-traumatic stress disorder) 05/18/2023 Bipolar disorder with severe depression 05/18/19 24 Assessment & Plan (03/16/2024 6:33 AM EST): She does follow with psych for mgmt of this Assessment & Plan (09/21/2023 12:48 PM EDT): Follow with psych, she will be letting them know about med changes etc Anxiety 05/18/2023 Assessment & Plan (03/16/2024 6:35 AM EST): Under care of psych for this as well Does take benzo Allergic rhinitis 05/18/2023 Assessment & Plan (08/16/2024 1:00 PM EDT): Stop cetirizine, order naida Yeast infection of the skin 05/18/2023 Assessment & Plan (07/07/2023 2:34 PM EDT): resolved Assessment & Plan (05/18/2023 5:47 PM EST): Discussed skin care, cont nystatin powder and cream and will add diflucan Fu if not better Encounter for annual wellnes s visit (AWV) in Medicare patient 05/18/2023 Assessment & Plan (05/18/2023 5:20 PM EST): Reviewed Ht/Wt/BMI Recommend eye exam yearly Recommend dental exams twice a year Balance work/leisure activities Exercises is recommended most days of the week (appropriate as chronic conditions allow) Follow up yearly and prn Left hip pain 05/18/2023 Morbid (severe) obesity due to excess calories 1 05/26/2022 Assessment & Plan (08/16/2024 6:33 AM EDT): Discussed with patient their BMI (actual, verses recommended). We have also discussed lifestyle modifications: attempts to perform physical activity as chronic conditions allow, also to monitor dietary intake: increasing protein/fruits/veggies and lowering carb intake (unless contraindicated). Limit sodas, juices, and sugary drinks. Has had bariatric surgeries in the past Assessment & Plan (07/27/2024 6:47 AM EDT): Discussed with patient their BMI (actual, verses recommended). We have also discussed lifestyle modifications: attempts to perform physical activity as chronic conditions allow, also to monitor dietary intake: increasing protein/fruits/veggies and lowering carb intake (unless contraindicated). Limit sodas, juices, and sugary drinks. Has had bariatric surgeries in the past Assessment & Plan (05/12/2024 6:41 AM EST): Discussed with patient their BMI (actual, verses recommended). We have also discussed lifestyle modifications: attempts to perform physical activity as chronic conditions allow, also to monitor dietary intake: increasing protein/fruits/veggies and lowering carb intake (unless contraindicated). Limit sodas, juices, and sugary drinks. Has had bariatric surgeries in the past Assessment & Plan (03/16/2024 6:33 AM EST): Discussed with patient their BMI (actual, verses recommended). We have also discussed lifestyle modifications: attempts to perform physical activity as chronic conditions allow, also to monitor dietary intake: increasing protein/fruits/veggies and lowering carb intake (unless contraindicated). Limit sodas, juices, and sugary drinks. Has had bariatric surgeries in the past Assessment & Plan (02/16/2024 6:58 AM EST): Discussed with patient their BMI (actual, verses recommended). We have also discussed lifestyle modifications: attempts to perform physical activity as chronic conditions allow, also to monitor dietary intake: increasing protein/fruits/veggies and lowering carb intake (unless contraindicated). Limit sodas, juices, and sugary drinks. 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 Patellar tendonitis 11/20/2016 Resolved Problems Problem Noted Date Diagnosed Date Resolved Date Acute cystitis without hematuria 01/28/2024 08/16/2024 Assessment & Plan (01/28/2024 2:20 PM EDT): Appears to have resolved No acute symptoms Reviewed culture results Ordered in office UA: see results Will send out health trax culture Fu if return of symptoms Thalamic disease 10/11/2023 03/16/2024 Tendinitis of right forearm 10/11/2023 03/16/2024 Acute respiratory failure 08/26/2023 Assessment & Plan (09/21/2023 12:47 PM EDT): resolved Post-viral cough syndrome 07/23/2023 Assessment & Plan (07/23/2023 12:34 PM EDT): No help with tessalon or bromfed DM Discontinue those Samples of Capmist DM 1 twice a day #14 pills, Lot [id number], exp 06/29 Acute cough 07/14/2023 10/21/2023 Assessment & Plan (08/17/2023 10:06 AM EDT): resolved Influenza 07/14/2023 10/21/2023 Acute cystitis with hematuria 05/21/2023 10/21/2023 Right sided weakness 05/18/2023 024 Hemorrhoid 05/18/2023 03/16/2024 Overview (05/18/2023): int/external hemorrhoids Brain vascular malformation 05/18/2023 03/16/2024 Constipation 05/18/2023 08/17/2023 Colon polyps 05/18/2023 08/17/2023 Tenosynovitis, de Quervain 05/18/2023 1 05/17/2023 Right knee pain 05/18/2023 03/16/2024 Lower extremity edema 05/18/20232023 Acute gout of right foot, unspecified cause 05/18/2023 08/17/2023 Shingles 05/18/2023 05/18/2023 Mood disorder 05/18/2023 03/16/2024 Overview (05/18/2023): mixed mood disorder Assessment & Plan (05/18/2023 5:17 PM EST): Continue with Psych for management Tobacco dependence 05/18/2023 Assessment & Plan (01/28/2024 7:24 AM EDT): The patient has been advised of the [...] provider when ready to start this process Hematoma of right breast 05/18/202303/2024 Dizziness 05/18/2023 03/16/2024 Depression 05/18/2023 03/16/2024 Open wound anterior abdominal wall 05/18/2023 10/21/2023 Assessment & Plan (05/18/2023 5:49 PM EST): Culture obtained, will hold on atb until we know what results of culture May continue with peroxide and atb ointment Left foot pain 03/25/2023 08/17/2023 Assessment & Plan (03/25/2023 2:33 PM EST): Re injury a few days after initial injury Rock taped 4th and 5th toes, still not better Would like an xray Primary hypertension 03/25/2023 024 Assessment & Plan (01/04/2024 10:18 AM EDT): At goal today, no med dose changes Assessment & Plan (09/21/2023 12:48 PM EDT): No changes in meds at this time Assessment & Plan (08/17/2023 10:07 AM EDT): At goal, no changes in current meds Fu in 3 months Assessment & Plan (07/23/2023 12:28 PM EDT): Doing well with blood pressure reading no changes in med dose Fu in 3 months for this Assessment & Plan (07/07/2023 2:32 PM EDT): Consistently getting high reads at other offices, does periodically get where feels like heart is pounding hard Rx for home blood pressure cuff, check twice a day and record Increase carvediolol to 6.25mg BID Fu in 4-6 weeks Assessment & Plan (05/18/2023 5:17 PM EST): At goal no changes in meds Assessment & Plan (03/25/2023 2:35 PM EST): BP stable on current meds, no changes in med dose Abdominal pannus 03/25/2023 05/18/2023 Closed fracture of patella 02/04/2018 0 10/21/2023 Pain in right knee 11/20/2016 Encounters Date Type Department Care Team Description 08/16/2024 11:30 AM EDT Office Visit [facility] [address] [place] [address] Adelaida Carrion NP Primary hypertension (CMS/HCC) (Primary Dx); Bronchitis; Bilateral lower extremity edema; Morbid (severe) obesity due to excess calories (CMS/HCC); Pre-diabetes; Allergic rhinitis, unspecified seasonality, unspecified trigger; Encounter for screening mammogram for malignant neoplasm of breast; Former cigarette smoker 08/16/2024 Bamboo flowsheet [facility] [address] [place] [address] Adelaida Carrion NP 08/08/2024 [facility] [address] [place] [address] José Luis Roberts MD 07/27/2024 11:30 AM EDT Office Visit [facility] [address] [place] [address] Adelaida Carrion NP Primary hypertension (CMS/HCC) (Primary Dx); Morbid (severe) obesity due to excess calories (CMS/HCC); Essential (primary) hypertension (CMS/HCC); Allergic rhinitis, unspecified; Gastro-esophageal reflux disease without esophagitis; Bilateral lower extremity edema; Bronchitis 07/27/2024 Bamboo flowsheet [facility] [address] [place] [phone] Adelaida Carrion NP 07/26/2024 11:00 AM EDT Office Visit [facility] [address] [phone] Juany Leggett PA OSMANY (obstructive sleep apnea) (Primary Dx); Restless leg; 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[facility]); Concentration deficit 07/26/2024 Patient Outreach [facility] [address] [place] [address] Bong Rosado MA 07/26/2024 Bamboo flowsheet [facility] [address] [phone] Juany Leggett PA 07/08/2024 Refill [facility] [address] [place] [phone] José Luis Roberts MD 07/08/2024 Refill [facility] [address] [place] [phone] Juany Leggett PA Restless leg 07/08/2024 Refill [facility] [address] [address] [place] [phone] Juany Leggett PA Restless leg 06/20/2024 Patient Outreach [facility] [address] [place] [address] Bong Rosado MA 06/14/2024 Refill [facility] [address] [place] [phone] Adelaida Carrion NP URI, acute (Primary Dx) 06/14/2024 Telephone [facility] [address] [place] [address] Adelaida Carrion NP 06/09/2024 Telephone [facility] [address] [place] [address] Adelaida Carrion NP Error (VOID this visit) 06/07/2024 Refill [facility] [address] [place] [address] Juany Leggett PA Restless leg from Last 3 Months Immunizations Immunization Administration Dates Next Due DTP 02/19/2022 Influenza, injectable, MDCK, preservative free, quadrivalent 01/28/2024 Influenza, injectable, quadr ivalent, preservative free 02/13/2023,05/28/2018 Moderna SARS-CoV-2 Vaccination 03/02/2021,2020,07/27/2020 Pneumococcal Conjugate PCV 13 2017 SARS-COV-2 (COVID-19) vaccin e, mRNA, spike protein, LNP, PF, 50 mcg/0.5 mL 02/13/2023 Zoster, Recombinant 08/17/2023 Family History Medical History Relation Name Comments Arthritis Father Dementia Father Heart disease Father Hyperlipidemia Father Hypertension Father Diabetes Maternal Grandmother Diabetes Mother Kidney failure Mother Spinal Meningitis Mother Relation Name Status Comments Father Maternal Grandmother Mother Social History Tobacco Use Types Packs/Day Years Used Date Smoking Tobacco: Former Cigarettes 1 40 1 977 - 2017 Smokeless Tobacco: Never Tobacco Cessation:Counseling Given: Not [...] declined 08/16/2023 How often do you attend adventism or mandaeism serv ices? Never 08/16/2023 Do you belong to any clubs o r organizations such as adventism groups, unions, fraternal or athletic groups, or [...] Recorded Patient Health Questionnaire-2 Score 2 09/21/2023 [facility] Questionnaire Answer Date Recorded [...] Orientation Straight 10/01/2022 11 :13 PM EDT Last Filed Vital Signs Vital Sign Reading Time Taken Comments Blood Pressure 120/82 08/16/2024 11:25 AM EDT Pulse 67 08/16/2024 11:25 AM EDT Temperature 36.9 C (98.5 F) 08/16/2024 11:25 AM EDT Respiratory Rate 18 08/16/2024 11:25 AM EDT Oxygen Saturation 97% 08/16/2024 11:25 AM EDT Inhaled Oxygen Concentration - - Weight 127 kg (281 lb) 08/16/2024 11:25 AM EDT Height 162.6 cm (5' 4 ) 07/26/2024 10:48 AM EDT Body Mass Index 48.23 07/26/2024 10:48 AM EDT Plan of Treatment Upcoming Encounters Date Type Department Care Team (Late st Contact Info) Description 11/14/2024 9:40 AM EDT Office Visit [facility] [address] [place] [address] Adelaida Carrion NP [address] [place] [address] 11/30/2024 12:40 PM EDT Office Visit [facility] [address] [place] [address] Juany Caballero NP [address] [place], [place] Health Maintenance Due Date Last Done Comments CT Colonography 1961 FIT-DNA 1961 FIT 1960 FOBT 1960 Sigmoidoscopy 1960 HPV/Cotest 12/06/1991 Mammogram 09/17/2024 09/18/2023, 09/18/2023, 09/04 Medicare Annual Wellness (AWV) 02/15/2025 02/16/2024 , 05/18/2023 Cervical Cancer Screening 08/28/2025 Pap Smear 08/28/2025 08/28/2022 Colonoscopy 03/23/2033 03/23/2023, 02/04/2013 Colorectal Cancer Screening 03/23/2033 Influenza Vaccine Completed 01/28/2024, 02/13/2023, 05/28/2018 Procedures Procedure Name Priority Date/Time Associated Diagnosis Comments POCT GLYCOSYLATED HEMOGLOBIN (HGB A1C) Routine 08/16/2024 11:53 AM EDT Pre-diabetes MM TOMOSYNTHESIS SCREENING BI 09/18/2023 1:42 PM EDT from Last 3 Months or Most Recently Relevant to Health Maintenance Results * POCT glycosylated hemoglobin (Hb A1C) docked device (08/16/2024 11:53 AM EDT) Hemoglobin A1C 5.6 Blood Venous blood specimen / Unknown 08/16/2024 11:53 AM EDT Adelaida Carrion NP POINT OF CARE TEST ENTER/EDIT O RDERABLES Final Result * MM TOMOSYNTHESIS SCREENING BI (09/18/2023 1:42 PM EDT) Anatomical Region Laterality Modality Other 09/18/2023 1:42 PM EDT Narrative 09/18/2023 1:43 [place] [address] Mammography Report Signed Patient: NASIM BE MR#: [id number] : 1960 Acct:[id number] Age/Sex: 62 / F ADM Date: 09/18/23 Loc: MAMMO Attending Dr: Adelaida Carrion NP Ordering Physician: Adelaida Carrion NP Results: Date of Service: 09/18/23 Follow Up: Procedure(s): MM tomosynthesis screening BI Accession Number(s): [id number] cc: Adelaida Carrion NP Patient Name: NASIM BE MR#: [id number] : 1960 Exam Date: 09/18/2023 Ordering Doctor: [...] Treatments None Family Cancers None LOCATION: [facility] BREAST COMPOSITION: There are scattered areas of [...] Signed By: 09/18/23 1343 DD/ 134 TD/TT: Angio Technologist: Procedure Note Radiology, Radiologist, MD - 09/18/2023 [place] [address] Mammography Report Signed Patient: NASIM BE LMR#: [id number] : 1960cct:[id number] Age/Sex: 62 / FADM Date: 09/18/23 Loc: MAMMO Attending Dr: Adelaida Carrion NP Ordering Physician: Adelaida Carrion NPResults: Date of Service: 09/18/23Follow Up: Procedure(s): MM tomosynthesis screening BI Accession Number(s): [id number] cc: Adelaida Carrion NP Patient Name: NASIM BE MR#: [id number] : 1960 Exam Date: 09/18/2023 Ordering Doctor: LIVIER Carrion CNP RADIOLOGY REPORT PROCEDURE: MM TOMOSYNTHESIS SCREENING BI COMPARISON: MM TOMOSYNTHESIS SCREENING BI, 09/15/2022. MG MAMM [id number] BHUMI CAD, 06/20/2021. INDICATIONS: Screening Calculator Name NCI Breast Cancer Risk Assessment Tool 5 Year Breast Cancer Risk 2.20% Lifetime Breast Cancer Risk 10.30% Personal Breast Cancer No Personal Ovarian Cancer No Treatments None Family Cancers None LOCATION: [facility] BREAST COMPOSITION: There are scattered areas of [...] M.D. 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 [employer] Expl anation Power of Vp Training 03/16/2024 9:42 AM darian r of claims attorney Power of Vp Training 03/10/2024 3:12 PM POA Care Teams Butt Presser Relationship Specialty Start Date End Date José Luis Roberts MD [address] [place] [address] PCP - General Family Medicine 02/02/24 Miriam Suarez DO [address] [place] [address] Referring Physician Neurology 06/29/23 Adelaida Carrion NP [address] [place] [address] Nurse Practitioner Family Medicine 01/27/24 Bong Rosado MA Family Medicine 02/12/24 Juany Leggett PA [address] [facility] [address] [place] [address] Physician Pacu Nurse Neurology 07/26/24
--- OUTSIDE RECORDS SUMMARY | 2024-08-25 04:10 | XMS_ITS | Encounter Summary ---
Author Organization [facility] Healthcare Address [address] [place] [address] Care Team Providers Care Electrician Apprentice Powerhouse Name Role Phone Adelaida Carrion NP Unavailable [phone] José Luis Roberts MD Primary Care Provider [phone] José Luis Roberts MD Primary Care Provider [phone] Miriam Suarez DO Unavailable [phone] [place], Ardana POLISHER SAND Unavailable Unavailable Aida, Ardana POLISHER SAND Unavailable Unavailable Diana De Leon POLISHER SAND Unavailable Unavailable Unallocated, Noms Provider Primary Care Provi kellee Adelaida Carrion AEROSP[employer] PRODUCTS SALES ENGINEER Unavailable [phone] José Luis Roberts MD Primary Care Provider [phone] Bong Rosado MA Unavailable Unavailable Juany Leggett Unavailable Encounter Details Date Type Department Care Team (Late st Contact Info) Description 01/23/2023 Abstract [facility] [address] [facility] [address] [place] [address] Travon Hiens PA 112 [facility] 150 [place] [address] Social History Tobacco Use Types Packs/Day Years [...] JOHAN MANDUJANO FM [address] [place] [address] Adelaida Carrion, BRIANA [address] [place] [address] 11/30/2024 12:40 PM EDT Office Visit [place] [facility] [address] [address] Juany Caballero NP [address] [place] [address] documented as of this encounter Visit Diagnoses Not on filedocumented in this encounter Care Teams Electrician Apprentice Powerhouse Relationship Specialty Start Date End Date José Luis Roberts MD PCP - General Family Medicine 10/14/22 05/17/23 Joés Luis Roberts MD [address] [place] [address] PCP - General Family Medicine 05/18/23 01/26/24 Unallocated, Johan Sierra MD [address] [place] [address] PCP - General Family Medicine 01/27/24 02/01/24 José Luis Roberts MD [address] [place] [address] PCP - General Family Medicine 02/02/24 Adelaida Carrion NP Referring Physician Nurse Practitioner 10/14/22 Miriam Suarez DO [address] [place] [address] Referring Physician Neurology 06/29/23 Mathew Parra LPN Registered Nurse Family Medicine 07/07/23 07/08/23 Mathew Parra LPN Licensed Practical Nurse Family Medicine 07/23/23 Diana De Leon LPN Licensed Practical Nurse Family Medicine 12/18/23 Adelaida Carrion NP [address] [place] [address] Nurse Practitioner Family Medicine 01/27/24 Bong Rosado MA Family Medicine 02/12/24 Juany Leggett PA [address] [place] [address] Physician Photograph Enlarger Neurology 07/26/24 documented as of this encounter
--- OUTSIDE RECORDS SUMMARY | 2024-08-25 04:10 | XMS_ITS | Encounter Summary ---
Author Organization [facility] Address [address] [facility] [place] [address] Care Team Providers Care Intensive Care Anaesthetist Name Role Phone Adelaida Carrion NP Unavailable [phone] José Luis Roberts MD Primary Care Provider [phone] José Luis Roberts MD Primary Care Provider [phone] Miriam Suarez DO Unavailable [phone] [place], Ardana FLORAL SPECIALIST Unavailable Unavailable Aida, Ardana FLORAL SPECIALIST Unavailable Unavailable Diana De Leon FLORAL SPECIALIST Unavailable Unavailable Unallocated, Noms Provider Primary Care Provi kellee Adelaida Carrion NP Unavailable [phone] José Luis Roberts MD Primary Care Provider [phone] Bong Rosado MA Unavailable Unavailable Juany Leggett Unavailable Encounter Details Date Type Department Care Team (Late st Contact Info) Description 03/06/2023 Clinisync Result Encounter [facility] External Department Unsolicited Ashleigh Hines PA [address] [facility] [address] [place] [id number] Social History Tobacco Use Types Packs/Day Years [...] Visit [facility] [address] [place] [address] Adelaida Carrion NP [address] [place] [address] 11/30/2024 12:40 PM EDT Office Visit [facility] [address] [address] Juany Caballero NP [address] documented as of this encounter Procedures Procedure Name Priority Date/Time Associated Diagnosis Comments MR KNEE RT WO CON 03/06/2023 3:5 5 PM EST documented in this encounter Results * MR KNEE RT WO CON (03/06/2023 3:55 PM EST) Anatomical Region Laterality Modality Other 03/06/2023 3:55 PM EST Narrative 03/06/2023 3:55 PM EST The [address] [address] Magnetic Resonance Report Signed Patient: NASIM BE MR#: [id number] : 1960 Acct:[id number] Age/Sex: 62 / F ADM Date: 03/06/23 Loc: MRI Attending Dr: Ashleigh REDDY Ordering Physician: Ashleigh Hines Date of Service: 03/06/23 Procedure(s): MR knee RT wo con Accession Number(s): [id number] cc: Adelaida Carrion NP; Ashleigh Hines [address] [address] Patient Name: NASIM BE MRN: [id number] date: 1960 Sex: F Assigned Patient Location: MRI Current Patient Location: MRI Accession/Order Number: [id number] Exam Date: 03/06/2023 09:30 Report Date: 03/06/2023 15:55 At the request of: ASHLEIGH HINES Procedure: MR knee RT wo con EXAMINATION: MR knee RT wo con HISTORY: Internal Derangement Of Right Knee M23.91 COMPARISON: XR knee right 08/08/2021 TECHNIQUE: A complete multi-planar MRI was performed. FINDINGS: MEDIAL COMPARTMENT MEDIAL MENISCUS: No visible tear or significant degeneration. CARTILAGE: No visible defect. BONES: Periarticular degenerative osteophytes. No fracture or bone lesion. MCL AND MEDIAL CAPSULE: Grade I sprain of the medial collateral ligament. LATERAL COMPARTMENT LATERAL MENISCUS: No visible tear or significant degeneration. CARTILAGE: No visible defect. BONES: Periarticular degenerative osteophytes. No fracture or bone lesion. LCL/POSTEROLAT COMPLEX: Normal lateral collateral ligament, fascicles, lateral capsule and ligaments. ANTERIOR COMPARTMENT PATELLA: Prior repair of patella via 2 screws directed cephalad-caudad and one directed medial-lateral within the patella; no appreciable contact of the hardware with the articular surfaces. The transversely placed screw extends 1.5 mm external to the lateral margin of the patella; of questionable clinical significance. Periarticular degenerative osteophytes. CARTILAGE: Irregular thinning of patellar cartilage; no appreciable defect. TENDONS: Normal. EFFUSION: Small joint effusion. ACL: Normal appearing ligament. PCL: Normal appearing ligament. MENISCOFEMORAL: Normal meniscofemoral ligaments. OTHER: Negative. MR/MR knee RT wo con IMPRESSION: 1. No specific findings to account for patient's symptoms. 2. Multifocal degenerative changes as detailed above. 3. Prior surgical repair of patella as detailed above. Electronically authenticated by: JACE DHILLON Date: 03/06/2023 15:55 Dictated By: Jace Dhillon M.D. Signed By: 03/06/23 1558 DD/ 1555 TD/TT: Supervisor Extrusion: Procedure Note Radiology, Radiologist, MD - 03/06/[address] [address] Magnetic Resonance Report Signed Patient: NASIM BE LMR#: [id number] : 1960cct:[id number] Age/Sex: 62 / FADM Date: 03/06/23 Loc: MRI Attending Dr: Ashleigh REDDY Ordering Physician: Ashleigh Hines Date of Service: 03/06/23 Procedure(s): MR knee RT wo con Accession Number(s): [id number] cc: Adelaida Carrion NP; Ashleigh Hines The [address] [address] Patient Name: NASIM BE MRN: [id number] date: 1960 Sex: F Assigned Patient Location: MRI Current Patient Location: MRI Accession/Order Number: [id number] Exam Date: 03/06/2023 09:30 Report Date: 03/06/2023 15:55 At the request of: ASHLEIGH HINES Procedure: MR knee RT wo con EXAMINATION: MR knee RT wo con HISTORY: Internal Derangement Of Right Knee M23.91 COMPARISON: XR knee right 08/08/2021 TECHNIQUE: A complete multi-planar MRI was performed. FINDINGS: MEDIAL COMPARTMENT MEDIAL MENISCUS: No visible tear or significant degeneration. CARTILAGE: No visible defect. BONES: Periarticular degenerative osteophytes. No fracture or bone lesion. MCL AND MEDIAL CAPSULE: Grade I sprain of the medial collateral ligament. LATERAL COMPARTMENT LATERAL MENISCUS: No visible tear or significant degeneration. CARTILAGE: No visible defect. BONES: Periarticular degenerative osteophytes. No fracture or bone lesion. LCL/POSTEROLAT COMPLEX: Normal lateral collateral ligament, fascicles,lateral capsule and ligaments. ANTERIOR COMPARTMENT PATELLA: Prior repair of patella via 2 screws directed cephalad-caudad andone directed medial-lateral within the patella; no appreciable contact of the hardware with the articular surfaces. The transversely placed screwextends 1.5 mm external to the lateral margin of the patella; of questionable clinical significance. Periarticular degenerative osteophytes. CARTILAGE: Irregular thinning of patellar cartilage; no appreciabledefect. TENDONS: Normal. EFFUSION: Small joint effusion. ACL: Normal appearing ligament. PCL: Normal appearing ligament. MENISCOFEMORAL: Normal meniscofemoral ligaments. OTHER: Negative. MR/MR knee RT wo con IMPRESSION: 1. No specific findings to account for patient's symptoms. 2. Multifocal degenerative changes as detailed above. 3. Prior surgical repair of patella as detailed above. Electronically authenticated by: JACE DHILLON Date: 03/06/2023 15:55 Dictated By: Jace Dhillon M.D. Signed By:03/06/23 1558 DD/ 1555 TD/TT: Supervisor Extrusion: us Ashleigh REDDY [facility] Final Resul t documented in this encounter Visit Diagnoses Not on filedocumented in this encounter Care Teams Intensive Care Anaesthetist Relationship Specialty Start Date End Date José Luis Roberts MD PCP - General Family Medicine 10/14/22 05/17/23 José Luis Roberts MD [address] [place] [address] PCP - General Family Medicine 05/18/23 01/26/24 Unallocated, Noms ProviderMD [address] [place], [place] [address] PCP - General Family Medicine 01/27/24 02/01/24 José Luis Roberts MD [address] [place] [address] PCP - General Family Medicine 02/02/24 Adelaida Carrion NP Referring Physician Nurse Practitioner 10/14/22 Miriam Suarez DO [address] [place] [address] Referring Physician Neurology 06/29/23 Mathew Parra LPN Registered Nurse Family Medicine 07/07/23 07/08/23 Mathew Parra LPN Licensed Practical Nurse Family Medicine 07/23/23 Diana De Leon LPN Licensed Practical Nurse Family Medicine 12/18/23 Adelaida Carrion NP [address] [place] [address] Nurse Practitioner Family Medicine 01/27/24 Bong Rosado MA Family Medicine 02/12/24 Juany Leggett PA [address] [place], [place] [address] Physician Action Finisher Neurology 07/26/24 documented as of this encounter
--- OUTSIDE RECORDS SUMMARY | 2024-08-25 04:10 | XMS_ITS | Encounter Summary ---
Author Organization [facility] Address [address] [place] [address] Care Team Providers Care Cake Washer Name Role Phone Miriam Suarez DO Unavailable [phone] Adelaida Carrion NP Unavailable [phone] José Luis Roberts MD Primary Care Provider [phone] Bong Rosado MA Unavailable Unavailable Juany Leggett Unavailable Encounter Details Date Type Department Care Team (Late st Contact Info) Description 08/08/2024 Abstract [facility] [address] [place] [address] José Luis Roberts MD [address] [place] [address] Social History Tobacco Use Types Packs/Day Years [...] declined 08/16/2023 How often do you attend jewish or mandaeism serv ices? Never 08/16/2023 Do you belong to any clubs o r organizations such as jewish groups, unions, fraternal or athletic groups, or [...] Recorded Patient Health Questionnaire-2 Score 2 09/21/2023 [facility] - Occupational [...] place to sleep or slept in a long term (including now)? No 08/16/2023 Housing Stability Vital [...] Visit [facility] [address] [place] [address] Adelaida Carrion NP [address] [place] [address] 11/30/2024 12:40 PM EDT Office Visit [place] [facility] [address] [facility] [address] Juany Caballero NP [address] [place], [place] documented as of this encounter Visit Diagnoses Not on filedocumented in this encounter Additional Health Concerns Assessment Noted Time PHQ-9 Depression Total Score: 8 05/18/19 24 5:00 PM EST documented as of this encounter Care Teams Cake Washer Relationship Specialty Start Date End Date José Luis Roberts MD [address] [place] [address] PCP - General Family Medicine 02/02/24 Miriam Suarez DO [address] [place] [address] Referring Physician Neurology 06/29/23 Adelaida Carrion NP [address] [place] [address] Nurse Practitioner Family Medicine 01/27/24 Bong Rosado MA Family Medicine 02/12/24 Juany Leggett PA [address] [place] [address] Physician Residential Property Tax Appraiser Neurology 07/26/24 documented as of this encounter
--- OUTSIDE RECORDS SUMMARY | 2024-08-25 04:11 | XMS_ITS | Encounter Summary ---
Author Organization [facility] Address [address] [place] [address] Care Team Providers Care Exercise Physiologist Certified Name Role Phone Adelaida Carrion NP Unavailable [phone] José Luis Roberts MD Primary Care Provider [phone] Miriam Suarez DO Unavailable [phone] Mathew Parra LPN Unavailable Unavailable Diana De Leon LPN Unavailable Unavailable Unallocated, Noms Provider Primary Care Provi kellee Adelaida Carrion NP Unavailable [phone] José Luis Roberts MD Primary Care Provider [phone] Bong Rosado MA Unavailable Unavailable Juany Leggett Unavailable Encounter Details Date Type Department Care Team (Late st Contact Info) Description 12/02/2023 Orders Only [facility] [address] [place] [address] Bhakti Culp NP [address] [place] [address] Social History Tobacco Use Types Packs/Day Years Used Date Smoking Tobacco: Former Cigarettes 1 40 1 - 2016 Smokeless Tobacco: Never Alcohol Use [...] declined 08/16/2023 How often do you attend anabaptist or zoroastrian serv ices? Never 08/16/2023 Do you belong to any clubs o r organizations such as anabaptist groups, unions, fraternal or athletic groups, or [...] Recorded Patient Health Questionnaire-2 Score 2 09/21/2023 [facility] Occupational Stress Questionnaire Answer [...] place to sleep or slept in a care home (including now)? No 08/16/2023 Housing Stability Vital [...] Visit [facility] [address] [place] [address] Adelaida Carrion NP [address] [place] [address] 11/30/2024 12:40 PM EDT Office Visit [place] [facility] [address] [place] [address] Juany Caballero NP [address] [place], [place] documented as of this encounter Procedures Procedure Name Priority Date/Time Associated Diagnosis Comments XR LUMBAR SPINE 6+ VIEWS INCLUDING OBLIQUE FLEXION EXTENSION Routine 12/02/2023 4:07 PM EDT XR THORACIC SPINE 3 VIEWS Routine 12/02/2023 4:01 PM EDT documented in this encounter Results * XR lumbar spine 6+ views including oblique flexion extension (12/02/2023 4:07 PM EDT) Anatomical Region Laterality Modality Spine, L-spine Radiographic Nelda ging Bhakti Culp NP IMG XR PROCEDURES Final Result * XR thoracic spine 3 views (12/02/2023 4:01 PM EDT) Anatomical Region Laterality Modality Spine, T-spine Radiographic Nelda ging Bhakti Culp NP IMG XR PROCEDURES Final Result documented in this encounter Visit Diagnoses Not on filedocumented in this encounter Additional Health Concerns Assessment Noted Time PHQ-9 Depression Total Score: 8 05/18/19 24 5:00 PM EST documented as of this encounter Care Teams Exercise Physiologist Certified Relationship Specialty Start Date End Date José Luis Roberts MD [address] [place] [address] PCP - General Family Medicine 05/18/23 01/26/24 Unallocated, Noms MD Mariela [address] [place] [address] PCP - General Family Medicine 01/27/24 02/01/24 José Luis Roberts MD [address] [place] [place] [address] PCP - General Family Medicine 02/02/24 Adelaida Carrion, BRIANA Referring Physician Nurse Practitioner 10/14/22 Miriam Suarez DO [address] [place] [address] Referring Physician Neurology 06/29/23 Mathew Parra LPN Licensed Practical Nurse Family Medicine 07/23/23 Diana De Leon LPN Licensed Practical Nurse Family Medicine 12/18/23 Adelaida Carrion NP [address] [place] [address] Nurse Practitioner Family Medicine 01/27/24 Bong Rosado MA Family Medicine 02/12/24 Juany Leggett PA [address] [place] [address] Physician Atm Mechanic Neurology 07/26/24 documented as of this encounter
--- OUTSIDE RECORDS SUMMARY | 2024-08-25 04:11 | XMS_ITS | Encounter Summary ---
Author Organization [facility] Address [address] [place] [address] Care Team Providers Care Drencher Name Role Phone Adelaida Carrion NP Unavailable [phone] José Luis Roberts MD Primary Care Provider [phone] Miriam Suarez DO Unavailable [phone] Mathew Parra LPN Unavailable Unavailable Diana De Leon LPN Unavailable Unavailable Unallocated, Noms Provider Primary Care Provi kellee Adelaida Carrion NP Unavailable [phone] José Luis Roberts MD Primary Care Provider [phone] Bong Rosado MA Unavailable Unavailable Juany Leggett Unavailable Encounter Details Date Type Department Care Team (Late st Contact Info) Description 07/14/2023 Orders Only [facility] [address] [place] [address] Adelaida Carrion NP [address] [place] [address] Social History Tobacco Use Types [...] the phone with family, friends, or neighbors? Never 05/18/2023 How often do you get together with friends or re latives? Never 05/18/2023 How often do you attend mormon or samaritan serv ices? Never 05/18/2023 Do you belong to any clubs o r organizations such as mormon groups, unions, fraternal or athletic groups, or school groups? No 05/18/2023 How often do you attend meet ings of the clubs or organizations you belong to? Never 05/18/2023 Are you , , di vorced, , never , or living with a partner? 05/18/2023 AUDIT-C Answer Date Recorded Q1: How often do you have a drink containing alcohol? Never 05/18/2023 Q2: How many drinks containi ng alcohol do you have on a typical day when you are drinking? Patient does not drink Q3: How often do you have si x or more drinks on one occasion? Never 05/18/2023 Overall Financial Resource Strain (CARDIA) Answe r Date Recorded How hard is it for you to pa y for the very basics like food, housing, medical care, and heating? Very hard 05/18/2023 PHQ-2 Answer Date Recorded Patient Health Questionnaire-2 Score 0 07/07/2023 [facility] - Occupational Stress Questionnaire Answer Date Recorded Do you feel stress - tense, restless, nervous, or anxious, or unable to sleep at night because your mind is troubled all the time - these days? Very much 05/18/2023 Exercise Vital Sign Answer Date Recorde d On average, how many days pe r week do you engage in moderate to strenuous exercise (like a brisk walk)? 0 days 05/18/2023 On average, how many minutes do you engage in exercise at this level? 0 min 05/18/2023 Hunger Vital Sign Answer Date Recorded Within the past 12 months, y ou worried that your food would run out before you got the money to buy more. Never true 05/18/19 24 Within the past 12 months, t he food you bought just didn't last and you didn't have money to get more. Often true 05/18/2023 PRAPARE - Transportation Answer Date Re corded In the past 12 months, has l ack of transportation kept you from medical appointments or from getting medications? No 05/07 In the past 12 months, has l ack of transportation kept you from meetings, work, or from getting things needed for daily living? No 05/18/2023 Housing Stability Vital Sign Answer Davon e Recorded In the last 12 months, was t here a time when you were not able to pay the mortgage or rent on time? Yes 05/18/2023 In the last 12 months, how many places have you lived? 1 05/18/2023 In the last 12 months, was t here a time when you did not have a steady place to sleep or slept in a chcf (including now)? No 05/18/2023 Comments Unknown Sex and Gender Information Value [...] Visit [facility] [address] [place] [address] Adelaida Carrion NP [address] [place] [address] 11/30/2024 12:40 PM EDT Office Visit [facility] [address] [place] [address] Juany Caballero NP [address] [place], [place] documented as of this encounter Procedures Procedure Name Priority Date/Time Associated Diagnosis Comments XR CHEST 1 VIEW Routine 07/11/2023 9:09 AM EDT documented in this encounter Results * XR chest 1 view (07/11/2023 9:09 AM EDT) Anatomical Region Laterality Modality Chest Radiographic Nelda ging Adelaida Carrion PHARMACOGNOSY TEACHER IMG XR PROCEDURES Final Result documented in this encounter Visit Diagnoses Not on filedocumented in this encounter Additional Health Concerns Assessment Noted Time PHQ-9 Depression Total Score: 8 05/18/19 24 5:00 PM EST documented as of this encounter Care Teams Drencher Relationship Specialty Start Date End Date José Luis Roberts MD [address] [place] [address] PCP - General Family Medicine 05/18/23 01/26/24 Unallocated, Noms MD Mariela [address] [place] [address] PCP - General Family Medicine 01/27/24 02/01/24 José Luis Roberts MD [address] [place] [address] PCP - General Family Medicine 02/02/24 Adelaida Carrion NP Referring Physician Nurse Practitioner 10/14/22 Miriam Suarez DO [address] [place] [address] Referring Physician Neurology 06/29/23 Mathew Parra LPN Licensed Practical Nurse Family Medicine 07/23/23 Diana De Leon LPN Licensed Practical Nurse Family Medicine 12/18/23 Adelaida Carrion NP [address] [place] [address] Nurse Practitioner Family Medicine 01/27/24 Bong Rosado MA Family Medicine 02/12/24 Juany Leggett PA [address] [place] [address] Physician Mold Finisher Neurology 07/26/24 documented as of this encounter
--- OUTSIDE RECORDS SUMMARY | 2024-08-25 04:11 | XMS_ITS | Patient Health Record ---
Author Organization [facility] [place] Address [address] [place] [address] Care Team Providers Care Manager Of Training Name Role Phone Adelaida Carrion CNP Primary Care Provider Unavail able Allergies Allergen (clinical drug ingredient) Drug/Non Drug Allergy documented on EMR Reaction Allergy Type Onset Date Status adhesive tape (uncoded) Unknown Allergy Active compazine (uncoded) Unknown Allergy Active penicillin (uncoded) Unknown Allergy Active milnacipran savella (uncoded) Unknown Allergy Active tetracycline tetracycline (uncoded) Unknown Allergy Active Reason For Referral No Information Medications Medication SIG (Take, Route, Frequency, Duration) Notes Start Date End Date Status Ambien 10 MG 1 tablet at bedtime as needed Orally Once a day Active clonazePAM 2 MG (Schedule IV Drug) TAKE 1 TABLET BY MOUTH TWICE DAILY Oral for 14 Days Active Citracal + D Active Fluticasone Propionate 50 MCG/ACT INSTILL 2 SPRAY IN EACH NOSTRIL DAILY Nasal for 30 Days Active Cetirizine HCl 10 MG 1 tablet Orally Onc e a day Active Melatonin 12 MG 1 tablet on the tong ue and allow to dissolve at bedtime as needed Orally Once a day Active rOPINIRole HCl 4 MG 1 tablet 1 to 3 hour s before bedtime Orally Once a day Active Bariatric Multivitamins/Iron Active Neurontin 600 MG 1 tablet Orally Once a day am, pm 2 hs Active Biotin Active traZODone HCl 150 MG 1 tablet at bedtime as needed Orally Once a day 2 @ qhs Active Omeprazole 20 MG 1 capsule 30 minutes before morning meal Orally Once a day Active Vraylar 4.5 MG 1 capsule Orally Onc e a day Active Losartan Potassium 100 MG 1 tablet Orally Once a day Active tiZANidine HCl 4 MG 1 capsule as needed Orally Three times a day Active amLODIPine Besylate 10 MG 1 tablet Orally Once a day Active Cymbalta 60 MG 1 capsule Orally Onc e a day Active Social History Tobacco Use: Social History Observation Description Date Details (start date - stop date) Former Smoker NA - NA Tobacco Use/Smoking Question Answer Notes Patient is a former smoker Problems Problem Type SNOMED Code ICD Code Onset Dates Problem Status W/U Status Risk Notes Problem 10115066 Sprain of tarsometatarsal ligament of right foot, initial encounter (S93.621A) Active confirmed Problem 195003339 Lumbar postlaminectomy syndrome (M96.1) Active confirmed Problem 26186206 Lumbosacral spondylosis without myelopathy (M47.817) Active confirmed Problem Altered mental status (003190816) Altered mental status (R41.82) Active confirmed Plan Of Treatment Pending Test Test Name Order Date UA (URINALYSIS, COMPLETE) 01/04/2018 CBC WITH DIFF 01/04/2018 PT (PROTIME), INR AND PTT (PT/INR AND PT T) 01/04/2018 BMP (BASIC MET PANEL - W/GFR) 01/04/2018 Insurance Providers Payer Name Payer Address Payer Phone Subscriber Number Group Number Insured Name Patient Relationship to Insured Coverage Start Date Coverage End Date [employer] MEDICARE PPO [address] [address] [place], [place] [id number] Nasim Conway Self - patient is the insured [place]IC[place] [address] [id number] Nasim Conway Self - patient is the insured Medical (General) History Medical History History ICD Code Right foot pain M79.671 hypertension dysphagia Osteoporosis M81.0 Bipolar disorder with severe depression F31.4 Brain vascular 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
--- OUTSIDE RECORDS SUMMARY | 2024-08-25 04:12 | XMS_ITS | Encounter Summary ---
Author Organization [facility] Address [address] [place] [address] Care Team Providers Care Real Estate Rental Agent Name Role Phone Adelaida Carrion NP Unavailable [phone] José Luis Roberts MD Primary Care Provider [phone] Miriam Suarez DO Unavailable [phone] Mathew Parra LPN Unavailable Unavailable Diana De Leon LPN Unavailable Unavailable Unallocated, Noms Provider Primary Care Provi kellee Adelaida Carrion NP Unavailable [phone] José Luis Roberts MD Primary Care Provider [phone] Bong Rosado MA Unavailable Unavailable Juany Leggett Unavailable Encounter Details Date Type Department Care Team (Late st Contact Info) Description 08/25/2023 Orders Only [facility] [address] [place] [address] Adelaida Carrion NP [address] [place] [address] Social History Tobacco Use Types [...] declined 08/16/2023 How often do you attend quaker or baptist serv ices? Never 08/16/2023 Do you belong to any clubs o r organizations such as quaker groups, unions, fraternal or athletic groups, or [...] Recorded Patient Health Questionnaire-2 Score 0 08/17/2023 [facility] [...] Description 11/14/2024 9:40 AM EDT Office Visit [facility] [address] [place] [address] Adelaida Carrion NP [address] [place] [address] 11/30/2024 12:40 PM EDT Office Visit [facility] [address] [place] [address] Juany Caballero NP [address] [place], [place] documented as of this encounter Procedures Procedure Name Priority Date/Time Associated Diagnosis Comments ELECTROCARDIOGRAM REPORT Routine 024 8:39 AM EDT documented in this encounter Results * Electrocardiogram Report (08/24/2023 8:39 AM EDT) us Adelaida Carrion REEL FED PRINTER IN CLINIC/BEDSIDE ORDERABLES Fi nal Result documented in this encounter Visit Diagnoses Not on filedocumented in this encounter Additional Health Concerns Assessment Noted Time PHQ-9 Depression Total Score: 8 05/18/19 24 5:00 PM EST documented as of this encounter Care Teams Real Estate Rental Agent Relationship Specialty Start Date End Date José Luis Roberts MD [address] [place] [address] PCP - General Family Medicine 05/18/23 01/26/24 Unallocated, Johan Sierra MD [address] [place] [address] PCP - General Family Medicine 01/27/24 02/01/24 José Luis Roberts MD [address] [place] [address] PCP - General Family Medicine 02/02/24 Adelaida Carrion NP Referring Physician Nurse Practitioner 10/14/22 Miriam Suarez DO [address] [place], [place] [address] Referring Physician Neurology 06/29/23 Mathew Parra LPN Licensed Practical Nurse Family Medicine 07/23/23 Diana De Leon LPN Licensed Practical Nurse Family Medicine 12/18/23 Adelaida Carrion NP [address] [place] [address] Nurse Practitioner Family Medicine 01/27/24 Bong Rosado MA Family Medicine 02/12/24 Juany Leggett PA [address] [place], [place] [address] Physician Public Service Director Neurology 07/26/24 documented as of this encounter
--- OUTSIDE RECORDS SUMMARY | 2024-08-25 04:12 | XMS_ITS | Encounter Summary ---
Author Organization [facility] Address [address] [place] [address] Care Team Providers Care Commercial Relief Driver Name Role Phone Adelaida Carrion NP Unavailable [phone] José Luis Roberts MD Primary Care Provider [phone] Miriam Suarez DO Unavailable [phone] Mathew Parra LPN Unavailable Unavailable Diana De Leon LPN Unavailable Unavailable Unallocated, Noms Provider Primary Care Provi kellee Adelaida Carrion NP Unavailable [phone] José Luis Roberts MD Primary Care Provider [phone] Bong Rosado MA Unavailable Unavailable Juany Leggett Unavailable Encounter Details Date Type Department Care Team (Late st Contact Info) Description 08/26/2023 Orders Only [facility] [address] [place] [address] Arsalan Hagen MD [address] [id number] Social History Tobacco Use Types Packs/Day Years [...] declined 08/16/2023 How often do you attend hoahaoism or confucianist serv ices? Never 08/16/2023 Do you belong to any clubs o r organizations such as hoahaoism groups, unions, fraternal or athletic groups, or [...] Score 0 08/17/2023 [facility] - Occupational Stress Questionnaire Answer Date [...] Encounters Date Type Department Care Team (Late Contact Info) Description 11/14/2024 9:40 AM EDT Office Visit [facility] [address] [place] [address] Adelaida Carrion, BRIANA [address] [place] [address] 11/30/2024 12:40 PM EDT Office Visit [facility] [address] [place] [address] Juany Caballero NP [address] [place], [place] documented as of this encounter Procedures Procedure Name Priority Date/Time Associated Diagnosis Comments CT CHEST ABDOMEN PELVIS W IV CONTRAST Routine 08/26/2023 7:42 AM EDT documented in this encounter Results * CT CHEST ABDOMEN PELVIS W IV CONTRAST (08/26/2023 7:42 AM EDT) Anatomical Region Laterality Modality Body, Chest, Abdomen, Pelvis Com puted Tomography us Arsalan Hagen MD IMG CT PROCEDURES Final Result documented in this encounter Visit Diagnoses Not on filedocumented in this encounter Additional Health Concerns Assessment Noted Time PHQ-9 Depression Total Score: 8 05/18/19 24 5:00 PM EST documented as of this encounter Care Teams Commercial Relief Driver Relationship Specialty Start Date End Date José Luis Roberts MD [address] [place] [address] PCP - General Family Medicine 05/18/23 01/26/24 Unallocated, Johan Sierra MD [address] [place] [address] PCP - General Family Medicine 01/27/24 02/01/24 José Luis Roberts MD [address] [place] [address] PCP - General Family Medicine 02/02/24 Adelaida Carrion, BRIANA Referring Physician Nurse Practitioner 10/14/22 Miriam Suarez DO [address] [place] [address] Referring Physician Neurology 06/29/23 Mathew Parra LPN Licensed Practical Nurse Family Medicine 07/23/23 Diana De Leon LPN Licensed Practical Nurse Family Medicine 12/18/23 Adelaida Carrion NP [address] [place] [address] Nurse Practitioner Family Medicine 01/27/24 Bong Rosado MA Family Medicine 02/12/24 Juany Leggett PA [address] [place] [address] Physician District Leader Neurology 07/26/24 documented as of this encounter
--- OUTSIDE RECORDS SUMMARY | 2024-08-25 04:12 | XMS_ITS | Encounter Summary ---
Author Organization [facility] Address [address] [place] [address] Care Team Providers Care Print Support Specialist Name Role Phone Adelaida Carrion RE ETCHER Unavailable [phone] José Luis Roberts MD Primary Care Provider [phone] José Luis Roberts MD Primary Care Provider [phone] Miriam Suarez DO Unavailable [phone] Florence, Ardana SPORTS FITNESS AND WELLNESS DIRECTOR Unavailable Unavailable Aida, Ardana SPORTS FITNESS AND WELLNESS DIRECTOR Unavailable Unavailable Diana De Leon SPORTS FITNESS AND WELLNESS DIRECTOR Unavailable Unavailable Unallocated, Noms Provider Primary Care Provi kellee Adelaida aCrrion RE ETCHER Unavailable [phone] José Luis Roberts MD Primary Care Provider [phone] Bong Rosado MA Unavailable Unavailable Juany Leggett Unavailable Encounter Details Date Type Department Care Team (Late st Contact Info) Description 04/08/2023 Orders Only [facility] [address] [place] [id number] Adelaida Carrion NP [address] [place] [id number] Social History Tobacco Use Types Packs/Day Years [...] Visit [facility] [address] [place] [address] Adelaida Carrion NP [address] [place] [address] 11/30/2024 12:40 PM EDT Office Visit [facility] [address] [place] [address] Juany Caballero NP [address] [place], [place] documented as of this encounter Procedures Procedure Name Priority Date/Time Associated Diagnosis Comments MISCELLANEOUS LAB TEST Routine 03/23/2023 2:45 PM EST documented in this encounter Results * - Miscellaneous Test (03/23/2023 2:45 PM EST) Adelaida Carrion RE ETCHER LAB BLOOD ORDERABLES Final Resu lt documented in this encounter Visit Diagnoses Not on filedocumented in this encounter Care Teams Print Support Specialist Relationship Specialty Start Date End Date José Luis Roberts MD PCP - General Family Medicine 10/14/22 05/17/23 José Luis Roberts MD [address] [place] [phone] PCP - General Family Medicine 05/18/23 01/26/24 Unallocated, Noms MD Mariela [address] [place], [place] [phone] PCP - General Family Medicine 01/27/24 02/01/24 José Luis Roberts MD [address] [place] [address] PCP - General Family Medicine 02/02/24 Adelaida Carrion, BRIANA Referring Physician Nurse Practitioner 10/14/22 Miriam Suarez DO [address] [place], [place] [address] Referring Physician Neurology 06/29/23 Mathew Parra LPN Registered Nurse Family Medicine 07/07/23 07/08/23 Mathew Parra LPN Licensed Practical Nurse Family Medicine 07/23/23 Diana De Leon LPN Licensed Practical Nurse Family Medicine 12/18/23 Adelaida Carrion, BRIANA [address] [place] [address] Nurse Practitioner Family Medicine 01/27/24 Bong Rosado MA Family Medicine 02/12/24 Juany Leggett PA [address] [place] [address] Physician Organ Tuner Electronic Neurology 07/26/24 documented as of this encounter
--- OUTSIDE RECORDS SUMMARY | 2024-08-25 04:12 | XMS_ITS | Encounter Summary ---
Author Organization [facility] Address [address] [place] [address] Care Team Providers Care Exceptional Children Teacher Assistant Name Role Phone Adelaida Carrion NP Unavailable [phone] José Luis Roberts MD Primary Care Provider [phone] José Luis Roberts MD Primary Care Provider [phone] Miriam Suarez DO Unavailable [phone] [place], Ardana HOSPICE CLINICAL SUPERVISOR Unavailable Unavailable Aida, Ardana HOSPICE CLINICAL SUPERVISOR Unavailable Unavailable Diana De Leon HOSPICE CLINICAL SUPERVISOR Unavailable Unavailable Unallocated, Noms Provider Primary Care Provi kellee Adelaida Carrion EDITOR Unavailable [phone] José Luis Roberts MD Primary Care Provider [phone] Bong Rosado MA Unavailable Unavailable Juany Leggett Unavailable Encounter Details Date Type Department Care Team (Late st Contact Info) Description 03/26/2023 Clinisync Result Encounter [facility] External Department Unsolicited Adelaida Carrion NP [address] [place] [address] Social History Tobacco Use Types Packs/Day Years [...] Office Visit [facility] [address] [place] [address] Adelaida Carrion NP [address] [place] [address] 11/30/2024 12:40 PM EDT Office Visit [facility] [address] [address] Junay Caballero NP [address] documented as of this encounter Procedures Procedure Name Priority Date/Time Associated Diagnosis Comments XR FOOT LT MIN 3V 03/26/2023 8:1 4 AM EST documented in this encounter Results * XR FOOT LT MIN 3V (03/26/2023 8:14 AM EST) Anatomical Region Laterality Modality Other 03/26/2023 8:14 AM EST Narrative 03/26/2023 8:17 AM EST The [address] [address] XRay Report Signed Patient: NASIM BE MR#: [id number] : 1960 Acct:[id number] Age/Sex: 62 / F ADM Date: 03/25/23 Loc: RAD Attending Dr: Adelaida Carrion NP Ordering Physician: Adelaida Carrion NP Date of Service: 03/25/23 Procedure(s): XR foot LT min 3V Accession Number(s): [id number] cc: Adelaida Carrion NP [address] [address] Patient Name: NASIM BE MRN: [id number] date: 1960 Sex: F Assigned Patient Location: [facility] Current Patient Location: Accession/Order Number: [id number] Exam Date: 03/25/2023 15:34 Report Date: 03/26/2023 08:14 At the request of: ADELAIDA CARRION Procedure: XR foot LT min 3V PROCEDURE: XR foot LT min 3V DATE: 03/25/2023 2:34 PM OFFICE HELPER COMPARISONS: None CLINICAL INDICATION: left foot pain M79.672 FINDINGS: There is no evidence of fractures or other osseous abnormalities. There is small spur off the posterior inferior os calcis. There is moderate spur off the posterior os calcis at the attachment of the Achilles. XR/XR foot LT min 3V IMPRESSION: Left foot radiographs show no evidence of acute abnormalities. Electronically authenticated by: VALERY HARIRS Date: 03/26/2023 08:14 Dictated By: Valery Harris M.D. Signed By: 03/26/23816 DD/ 3 TD/TT: Naphthalene Operator Helper: Procedure Note Radiology, Radiologist, MD - 03/26/[address] [address] XRay Report Signed Patient: NASIM BE LMR#: [id number] : 1960cct:[id number] Age/Sex: 62 / FADM Date: 03/25/23 Loc: RAD Attending Dr: Adelaida Carrion EDITOR Ordering Physician: Adelaida Carrion NP Date of Service: 03/25/23 Procedure(s): XR foot LT min 3V Accession Number(s): [id number] cc: Adelaida Carrion NP [address] [address] Patient Name: NASIM BE MRN: [id number] date: 1960 Sex: F Assigned Patient Location: [facility] Current Patient Location: Accession/Order Number: [id number] Exam Date: 03/25/2023 15:34 Report Date: 03/26/2023 08:14 At the request of: ADELAIDA CARRION Procedure: XR foot LT min 3V PROCEDURE: XR foot LT min 3V DATE: 03/25/2023 2:34 PM OFFICE HELPER COMPARISONS: None CLINICAL INDICATION: left foot pain M79.672 FINDINGS: There is no evidence of fractures or other osseous abnormalities. There is small spur off the posterior inferior os calcis. There ismoderate spur off the posterior os calcis at the attachment of the Achilles. XR/XR foot LT min 3V IMPRESSION: Left foot radiographs show no evidence of acute abnormalities. Electronically authenticated by: VALERY HARRIS Date: 03/26/2023 08:14 Dictated By: Valery Harris M.D. Signed By:03/26/23816 DD/ 3 TD/TT: Naphthalene Operator Helper: us Adelaida Carrion EDITOR [facility] Final Result documented in this encounter Visit Diagnoses Not on filedocumented in this encounter Care Teams Exceptional Children Teacher Assistant Relationship Specialty Start Date End Date José Luis Roberts MD PCP - General Family Medicine 10/14/22 05/17/23 José Luis Roberts MD [address] [place] [address] PCP - General Family Medicine 05/18/23 01/26/24 Unallocated, Johan Sierra MD [address] [place] [address] PCP - General Family Medicine 01/27/24 02/01/24 José Luis Roberts MD [address] [place] [address] PCP - General Family Medicine 02/02/24 Adelaida Carrion NP Referring Physician Nurse Practitioner 10/14/22 Miriam Suarez DO [address] [place] [address] Referring Physician Neurology 06/29/23 Mathew Parra LPN Registered Nurse Family Medicine 07/07/23 07/08/23 Mathew Parra LPN Licensed Practical Nurse Family Medicine 07/23/23 Diana De Leon LPN Licensed Practical Nurse Family Medicine 12/18/23 Adelaida Carrion NP [address] [place] [address] Nurse Practitioner Family Medicine 01/27/24 Bong Rosado MA Family Medicine 02/12/24 Juany Leggett PA [address] [place] [address] Physician Mobile Home Park Manager Neurology 07/26/24 documented as of this encounter
--- OUTSIDE RECORDS SUMMARY | 2024-08-25 04:12 | XMS_ITS | Clinical Summary ---
Author Organization [facility] tem Address [facility] [address] [place] [address] Care Team Providers Care Licensed Occupational Therapist Name Role Phone Adelaida Carrion APRN-VICE PRESIDENT PLANNING Primary Care Provider Medications gabapentin (NEURONTIN) 600 mg tabletIndicatio ns:Neuropathy 1 tablet po in the am (600mg) 1 tablet po at noon (600mg) an 2 tablets po at bedtime (1200mg) 120 tablet 5 05/04/2018 Active Social History Tobacco Use Types Packs/Day Years Used Date Smoking Tobacco: Never Assessed Childcare Answer Date Recorded Childcare Unknown 09/15/2018 Employment Answer Date Recorded Employment Unknown 09/15/2018 Purpose - Life Answer Date Recorded Purpose and direction in life Unknown Comments Unknown Sex and Gender Information Value Date Recorded Sex Assigned at Not on file Legal Sex Female 12:10 PM EDT Gender Identity Not on file Sexual Orientation Not on file Plan of Treatment Health Maintenance Due Date Last Done Comments Depression Screening 1973 Tobacco Screening 1973 Adult BMI Screening 12/06/1979 DTaP,Tdap and Td Vaccines (1 - Tdap) 1980 Pap Smear 1982 Zoster (Shingles) Vaccine (1 of 2) 12/06/2011 Influenza Vaccine 2024 Medical Devices Not on file Insurance Care Teams Licensed Occupational Therapist Relationship Specialty Start Date End Date Adelaida Carrion, ROSS-VICE PRESIDENT PLANNING PCP - General Nurse Practitioner 12/10/16
--- OUTSIDE RECORDS SUMMARY | 2024-08-25 04:12 | XMS_ITS | Encounter Summary ---
Author Organization [facility] Address [address] [place] [address] Care Team Providers Care Rail Grinder Name Role Phone Adelaida Carrion NP Unavailable [phone] José Luis Roberts MD Primary Care Provider [phone] Miriam Suarez DO Unavailable [phone] Mathew Parra CLINICAL NURSE REVIEWER Unavailable Unavailable Mathew Parra CLINICAL NURSE REVIEWER Unavailable Unavailable Diana De Leon CLINICAL NURSE REVIEWER Unavailable Unavailable Unallocated, Noms Provider Primary Care Provi kellee Adelaida Carrion NP Unavailable [phone] Jsoé Luis Roberts MD Primary Care Provider [phone] Bong Rosado MA Unavailable Unavailable Juany Leggett Unavailable Encounter Details Date Type Department Care Team (Late st Contact Info) Description 05/19/2023 Clinisync Result Encounter [facility] External Department Unsolicited Adelaida Carrion NP [address] [place] [address] Social History Tobacco Use Types Packs/Day Years [...] Never 05/18/2023 How often do you attend sikhism or roman catholic serv ices? Never 05/18/2023 Do you belong to any clubs o r organizations such as sikhism groups, unions, fraternal or athletic groups, or [...] Answer Date Recorded Patient Health Questionnaire-2 Score 1 05/18/2023 [facility] - Occupational [...] slept in a longterm (including now)? No 05/18/2023 Comments Unknown Sex [...] Visit [facility] [address] [place] [address] Adelaida Carrion NP [address] [place] [address] 11/30/2024 12:40 PM EDT Office Visit [facility] [address] [place] [address] Juany Caballero NP [address] [place] [address] documented as of this encounter Procedures Procedure Name Priority Date/Time Associated Diagnosis Comments XR HIP LT MIN 2V 05/19/2023 9:31 AM EST documented in this encounter Results * XR HIP LT MIN 2V (05/19/2023 9:31 AM EST) Anatomical Region Laterality Modality Other 05/19/2023 9:31 AM EST Narrative 05/19/2023 9:34 AM EST [address] [address] XRay Report Signed Patient: NASIM BE MR#: [id number] : 1960 Acct:[id number] Age/Sex: 62 / F ADM Date: 05/19/23 Loc: RAD Attending Dr: Adelaida Carrion NP Ordering Physician: Adelaida Carrion NP Date of Service: 05/19/23 Procedure(s): XR hip LT min 2V Accession Number(s): [id number] cc: Adelaida Carrion NP [address] [address] Patient Name: NASIM BE MRN: [id number] date: 1960 Sex: F Assigned Patient Location: RAD Current Patient Location: RAD Accession/Order Number: [id number] Exam Date: 05/19/2023 07:50 Report Date: 05/19/2023 09:31 At the request of: ADELAIDA CARRION Procedure: XR hip LT min 2V PROCEDURE: XR hip LT min 2V COMPARISON: None. HISTORY: Left Hip Pain M25.552 FINDINGS: BONES:No acute fracture or dislocation. Mild left hip osteoarthropathy with joint space narrowing and marginal osteophyte formation SOFT TISSUES:Negative. No visible soft tissue swelling. EFFUSION:None visible. OTHER: Negative. XR/XR hip LT min 2V IMPRESSION: Moderate left hip osteoarthritis Electronically authenticated by: HARRISON MACIEL Date: 05/19/2023 09:31 Dictated By: Harrison Maciel M.D. Signed By: 05/19/2334 DD/ 0 TD/TT: Plastics Engineering Teacher: Procedure Note Radiology, Radiologist, MD - 05/19/2023 [place] [address] XRay Report Signed Patient: NASIM BE LMR#: [id number] : 1960cct:[id number] Age/Sex: 62 / FADM Date: 05/19/23 Loc: [facility] Attending Dr: Adelaida Carrion NP Ordering Physician: Adelaida Carrion NP Date of Service: 05/19/23 Procedure(s): XR hip LT min 2V Accession Number(s): [id number] cc: Adelaida Carrion NP [place] [address] Patient Name: NASIM BE MRN: [id number] date: 1960 Sex: F Assigned Patient Location: [facility] Current [facility] Location: [facility] Accession/Order Number: [id number] Exam Date: 05/19/2023 07:50 Report Date: 05/19/2023 09:31 At the request of: ADELAIDA CARRION Procedure: XR hip LT min 2V PROCEDURE: XR hip LT min 2V COMPARISON: None. HISTORY: Left Hip Pain M25.552 FINDINGS: BONES:No acute fracture or dislocation. Mild left hip osteoarthropathywith joint space narrowing and marginal osteophyte formation SOFT TISSUES:Negative. No visible soft tissue swelling. EFFUSION:None visible. OTHER: Negative. XR/XR hip LT min 2V IMPRESSION: Moderate left hip osteoarthritis Electronically authenticated by: HARRISON MACIEL Date: 05/19/2023 09:31 Dictated By: Harrison Maciel M.D. Signed By:05/19/2334 DD/ TD/TT: Plastics Engineering Teacher: us Adelaida Carrion MOTEL MAID [facility] Final Result documented in this encounter Visit Diagnoses Not on filedocumented in this encounter Additional Health Concerns Assessment Noted Time PHQ-9 Depression Total Score: 8 05/18/19 24 5:00 PM EST documented as of this encounter Care Teams Rail Grinder Relationship Specialty Start Date End Date José Luis Roberts MD [address] [place] [address] PCP - General Family Medicine 05/18/23 01/26/24 Unallocated, Noms Provider, [address] [facility] [place] [address] PCP - General Family Medicine 01/27/24 02/01/24 José Luis Roberts MD [address] [place] [address] PCP - General Family Medicine 02/02/24 Adelaida Carrion NP Referring Physician Nurse Practitioner 10/14/22 Miriam Suarez DO [address] [place] [address] Referring Physician Neurology 06/29/23 Mathew Parra LPN Registered Nurse Family Medicine 07/07/23 07/08/23 Mathew Parra LPN Licensed Practical Nurse Family Medicine 07/23/23 Diana De Leon LPN Licensed Practical Nurse Family Medicine 12/18/23 Adelaida Carrion NP [address] [place] [address] Nurse Practitioner Family Medicine 01/27/24 Bong Rosado MA Family Medicine 02/12/24 Juany Leggett PA [address] [facility] [address] [place] [id number] Physician Information Security Specialist Neurology 07/26/24 documented as of this encounter
--- OUTSIDE RECORDS SUMMARY | 2024-08-25 04:12 | XMS_ITS | Encounter Summary ---
Author Organization [facility] Address [address] [place] [address] Care Team Providers Care Car Ferry Captain Name Role Phone Adelaida Carrion NP Unavailable [phone] José Luis Roberts MD Primary Care Provider [phone] Miriam Suarez DO Unavailable [phone] Mathew Parra LPN Unavailable Unavailable Diana De Leon LPN Unavailable Unavailable Unallocated, Noms Provider Primary Care Provi kellee Adelaida Carrion NP Unavailable [phone] José Luis Roberts MD Primary Care Provider [phone] Bong Rosado MA Unavailable Unavailable Juany Leggett Unavailable Encounter Details Date Type Department Care Team (Late st Contact Info) Description 09/01/2023 Orders Only [facility] [address] [place] [address] Shaikh Ablerto MD [address] [place] [address] Social History Tobacco Use Types [...] declined 08/16/2023 How often do you attend scientologist or spiritism serv ices? Never 08/16/2023 Do you belong to any clubs o r organizations such as scientologist groups, unions, fraternal or athletic groups, or [...] Recorded Patient Health Questionnaire-2 Score 0 08/17/2023 [facility] - [facility]ational Stress Questionnaire [...] Visit [facility] [address] [place] [address] Adelaida Carrion NP [address] [place] [address] 11/30/2024 12:40 PM EDT Office Visit [facility] [address] [place] [address] Juany Caballero NP [address] [place], [place] documented as of this encounter Procedures Procedure Name Priority Date/Time Associated Diagnosis Comments XR ANKLE 3+ VIEWS RIGHT Routine 08/31/2023 7:41 AM EDT MRI HEAD/BRAIN WO CONTRAS Routine 08/24/2023 10:43 AM EDT documented in this encounter Results * XR ankle 3+ views right (08/31/2023 7:41 AM EDT) Anatomical Region Laterality Modality Lower Extremities, Ankle Right Radiogr aphic Imaging us Shaikh Dolly JAIMES IMG XR PROCEDURES Final Result * MRI HEAD/BRAIN WO CONTRAS (08/24/2023 10:43 AM EDT) Anatomical Region Laterality Modality Radiographic Nelda ging us Adelaida Carrion NP IMG XR PROCEDURES Final Result documented in this encounter Visit Diagnoses Not on filedocumented in this encounter Additional Health Concerns Assessment Noted Time PHQ-9 Depression Total Score: 8 05/18/19 24 5:00 PM EST documented as of this encounter Care Teams Car Ferry Captain Relationship Specialty Start Date End Date José Luis Roberts MD [address] [place] [address] PCP - General Family Medicine 05/18/23 01/26/24 Unallocated, Noms MD Sourav SierraE [facility] [place] [address] PCP - General Family Medicine 01/27/24 02/01/24 José Luis Roberts MD [address] [place] [address] PCP - General Family Medicine 02/02/24 Adelaida Carrion, BRIANA Referring Physician Nurse Practitioner 10/14/22 Miriam Suarez DO [address] [place] [address] Referring Physician Neurology 06/29/23 Mathew Parra LPN Licensed Practical Nurse Family Medicine 07/23/23 Diana De Leon LPN Licensed Practical Nurse Family Medicine 12/18/23 Adelaida Carrion, BRIANA [address] [place] [address] Nurse Practitioner Family Medicine 01/27/24 Bong Rosado MA Family Medicine 02/12/24 Juany Leggett PA [address] [place] [address] Physician Marine Underwriter Neurology 07/26/24 documented as of this encounter
--- OUTSIDE RECORDS SUMMARY | 2024-08-25 04:12 | XMS_ITS | Encounter Summary ---
Author Organization [facility] Address [address] [place] [address] Care Team Providers Care Is Technician Name Role Phone Adelaida Carrion SUPERVISOR ROVING DEPARTMENT Unavailable [phone] José Luis Roberts MD Primary Care Provider [phone] José Luis Roberts MD Primary Care Provider [phone] Miriam Suarez DO Unavailable [phone] [place], Ardana TRANSIT PROOF MACHINE OPERATOR Unavailable Unavailable Aida, Ardana TRANSIT PROOF MACHINE OPERATOR Unavailable Unavailable Diana De Leon TRANSIT PROOF MACHINE OPERATOR Unavailable Unavailable Unallocated, Noms Provider Primary Care Provi kellee Adelaida Carrion SUPERVISOR ROVING DEPARTMENT Unavailable [phone] José Luis Roberts MD Primary Care Provider [phone] Bong Rosado MA Unavailable Unavailable Juany Leggett Unavailable Encounter Details Date Type Department Care Team (Late st Contact Info) Description 03/25/2023 Abstract [facility] [address] [place] [phone] Adelaida Carrion NP [address] [place] [address] Social History Tobacco Use Types Packs/Day Years [...] [facility] [address] [place] [address] Adelaida Carrion NP [address] [place] [address] 11/30/2024 12:40 PM EDT Office Visit [facility] [address] [place] [address] Juany Caballero NP [address] [place], [place] documented as of this encounter Visit Diagnoses Not on filedocumented in this encounter Care Teams Is Technician Relationship Specialty Start Date End Date José Luis Roberts MD PCP - General Family Medicine 10/14/22 05/17/23 José Luis Roberts MD [address] [place] [address] PCP - General Family Medicine 05/18/23 01/26/24 Unallocated, Johan Sierra MD [address] [place] [address] PCP - General Family Medicine 01/27/24 02/01/24 José Luis Roberts MD [address] [place] [address] PCP - General Family Medicine 02/02/24 Adelaida Carrion NP Referring Physician Nurse Practitioner 10/14/22 Miriam Suarez DO [address] [place] [address] Referring Physician Neurology 06/29/23 Mathew Parra LPN Registered Nurse Family Medicine 07/07/23 07/08/23 Mathew Parra LPN Licensed Practical Nurse Family Medicine 07/23/23 Diana De Leon LPN Licensed Practical Nurse Family Medicine 12/18/23 Adelaida Carrion NP [address] [place] [address] Nurse Practitioner Family Medicine 01/27/24 Bong Rosado MA Family Medicine 02/12/24 Juany Leggett PA [address] [place] [address] Physician Stonework Tracer Neurology 07/26/24 documented as of this encounter
--- OUTSIDE RECORDS SUMMARY | 2024-08-25 04:12 | XMS_ITS | Encounter Summary ---
Author Organization [facility] Address [address] [place] [address] Care Team Providers Care Hand Stoner Name Role Phone Adelaida Carrion NP Unavailable [phone] José Luis Roberts MD Primary Care Provider [phone] Miriam Suarez DO Unavailable [phone] Mathew Parra LPN Unavailable Unavailable Diana De Leon LPN Unavailable Unavailable Unallocated, Noms Provider Primary Care Provi kellee Adelaida Carrion NP Unavailable [phone] José Luis Roberts MD Primary Care Provider [phone] Bong Rosado MA Unavailable Unavailable Juany Leggett Unavailable Encounter Details Date Type Department Care Team (Late st Contact Info) Description 08/19/2023 Clinisync Result Encounter [facility] External Department Unsolicited Adelaida Carrion NP [address] [place] [address] Social History Tobacco Use Types Packs/Day Years [...] declined 08/16/2023 How often do you attend moravian or mandaeism serv ices? Never 08/16/2023 Do you belong to any clubs o r organizations such as moravian groups, unions, fraternal or athletic groups, or [...] Recorded Patient Health Questionnaire-2 Score 0 08/17/2023 [facility] of Occupat ional Health - Occupational Stress [...] [facility] [address] [place] [address] Adelaida Carrion NP [address] [place] [address] 11/30/2024 12:40 PM EDT Office Visit [place] [facility] [address] [place] [phone] Juany Caballero NP [address] [place] [address] documented as of this encounter Procedures Procedure Name Priority Date/Time Associated Diagnosis Comments CT LUNG SCREENING LOW DOSE 08/19/2023 6:06 AM EDT documented in this encounter Results * CT LUNG SCREENING LOW DOSE (08/19/2023 6:06 AM EDT) Anatomical Region Laterality Modality Other 08/19/2023 6:06 AM EDT Narrative 08/19/2023 6:09 AM EDT [address] [address] [address] Scan Report Signed Patient: NASIM BE MR#: [id number] : 1960 Acct:[id number] Age/Sex: 62 / F ADM Date: 08/18/23 Loc: CT Attending Dr: Adelaida Carrion COMPONENT ASSEMBLER Ordering Physician: Adelaida Carrion NP Date of Service: 08/18/23 Procedure(s): CT lung screening low-dose Accession Number(s): [id number] cc: Adelaida Carrion NP [address] [address] Patient Name: NASIM BE MRN: [id number] date: 1960 Sex: F Assigned Patient Location: CT Current Patient Location: Accession/Order Number: [id number] Exam Date: 08/18/2023 13:28 Report Date: 08/19/2023 06:06 At the request of: ADELAIDA CARRION Procedure: CT lung screening low-dose EXAMINATION: CT lung screening low-dose HISTORY: Former Smoker Z87.891 COMPARISON: No relevant comparison available. TECHNIQUE: Axial, Coronal, and Sagittal images were created without the administration of IV contrast material. Dose reduction techniques were achieved by using automated exposure control and/or adjustment of mA and/or kV according to patient size and/or use of iterative reconstruction technique. FINDINGS: LUNGS: No visible pulmonary disease. PLEURA: No mass, effusion, or pneumothorax. VASCULATURE: No abnormality. DIONI: No mass or pathologic adenopathy. MEDIASTINUM: No mass or pathologic adenopathy. CARDIAC: No enlargement, pericardial thickening, or pericardial effusion. Coronary artery calcifications: Mild AORTA: No aneurysm or dissection. CHEST WALL: No mass or axillary adenopathy BONES: No bone lesion or fracture. LIMITED ABDOMEN: Prior gastric surgery. Limited images of the upper abdomen. OTHER: Negative. CT/CT lung screening low-dose IMPRESSION: 1. Lung-RADS Category 1 Negative. No nodules and definitely benign nodules. Continue annual screening with LDCT in 12 months. Electronically authenticated by: JACE DHILLON Date: 08/19/2023 06:06 Dictated By: Jace Dhillon M.D. Signed By: 08/19/23608 DD/ 5 TD/TT: Captain Airline Pilot: Procedure Note Radiology, Radiologist, MD - 08/19/2023 [place] [address] CT Scan Report Signed Patient: NASIM BE LMR#: [id number] : 1960cct:[id number] Age/Sex: 62 / FADM Date: 08/18/23 Loc: CT Attending Dr: Adelaida Carrion NP Ordering Physician: Adelaida Carrion NP Date of Service: 08/18/23 Procedure(s): CT lung screening low-dose Accession Number(s): [id number] cc: Adelaida Carrion NP The [address] [address] Patient Name: NASIM BE MRN: [id number] date: 1960 Sex: F Assigned Patient Location: CT Current Patient Location: Accession/Order Number: [id number] Exam Date: 08/18/2023 13:28 Report Date: 08/19/2023 06:06 At the request of: ADELAIDA CARRION Procedure: CT lung screening low-dose EXAMINATION: CT lung screening low-dose HISTORY: Former Smoker Z87.891 COMPARISON: No relevant comparison available. TECHNIQUE: Axial, Coronal, and Sagittal images were created without the administration of IV contrast material. Dose reduction techniques were achieved by using automated exposure control and/or adjustment of mA and/or kV according to patient size and/or use of iterative reconstruction technique. FINDINGS: LUNGS: No visible pulmonary disease. PLEURA: No mass, effusion, or pneumothorax. VASCULATURE: No abnormality. DIONI: No mass or pathologic adenopathy. MEDIASTINUM: No mass or pathologic adenopathy. CARDIAC: No enlargement, pericardial thickening, or pericardial effusion. Coronary artery calcifications: Mild AORTA: No aneurysm or dissection. CHEST WALL: No mass or axillary adenopathy BONES: No bone lesion or fracture. LIMITED ABDOMEN: Prior gastric surgery. Limited images of the upperabdomen. OTHER: Negative. CT/CT lung screening low-dose IMPRESSION: 1. Lung-RADS Category 1 Negative. No nodules and definitely benignnodules. Continue annual screening with LDCT in 12 months. Electronically authenticated by: JACE DHILLON Date: 08/19/2023 06:06 Dictated By: Jace Dhillon M.D. Signed By:08/19/23 0609 DD/ 5 TD/TT: Captain Airline Pilot: us Adelaida Carrion COMPONENT ASSEMBLER [facility] Final Result documented in this encounter Visit Diagnoses Not on filedocumented in this encounter Additional Health Concerns Assessment Noted Time PHQ-9 Depression Total Score: 8 05/18/19 24 5:00 PM EST documented as of this encounter Care Teams Hand Stoner Relationship Specialty Start Date End Date José Luis Roberts MD [address] [place] [address] PCP - General Family Medicine 05/18/23 01/26/24 Unallocated, Johan Sierra MD [address] [place] [address] PCP - General Family Medicine 01/27/24 02/01/24 José Luis Roberts MD [address] [place] [address] PCP - General Family Medicine 02/02/24 Adelaida Carrion NP Referring Physician Nurse Practitioner 10/14/22 Miriam Suarez DO [address] [place] [address] Referring Physician Neurology 06/29/23 Mathew Parra LPN Licensed Practical Nurse Family Medicine 07/23/23 Diana De Leon LPN Licensed Practical Nurse Family Medicine 12/18/23 Adelaida Carrion, BRIANA [address] [place] [address] Nurse Practitioner Family Medicine 01/27/24 Bong Rosado MA Family Medicine 02/12/24 Juany Leggett PA [address] [place] [address] Physician Asian Studies Program Chair Neurology 07/26/24 documented as of this encounter
--- OUTSIDE RECORDS SUMMARY | 2024-08-25 04:12 | XMS_ITS | Encounter Summary ---
Author Organization [facility] Address [address] [place] [address] Care Team Providers Care Annealing Torch Operator Name Role Phone Adelaida Carrion NP Unavailable [phone] José Luis Roberts MD Primary Care Provider Miriam Suarez DO Unavailable [phone] Diana De Leon LPN Unavailable Unavailable Unallocated, Noms Provider Primary Care Provi kellee Adelaida Carrion NP Unavailable [phone] José Luis Roberts MD Primary Care Provider [phone] Bong Rosado MA Unavailable Unavailable Juany Leggett Unavailable Encounter Details Date Type Department Care Team (Late st Contact Info) Description 01/21/2024 Orders Only [facility] [address] [place] [phone] Adelaida Carrion NP [address] [place] [address] Social History Tobacco Use Types Packs/Day Years [...] declined 08/16/2023 How often do you attend samaritan or yazidi serv ices? Never 08/16/2023 Do you belong to any clubs o r organizations such as samaritan groups, unions, fraternal or athletic groups, or [...] Recorded Patient Health Questionnaire-2 Score 2 09/21/2023 [facility] of Occupat ional Health - Occupational [...] place to sleep or slept in a intermediate (including now)? No 08/16/2023 Housing Stability Vital [...] 11/14/2024 9:40 AM EDT Office Visit [facility] FLORES [address] [place] [address] Adelaida Carrion NP [address] [place] [address] 11/30/2024 12:40 PM EDT Office Visit [place] [address] [place] [address] Juany Caballero NP [address] [place], [place] documented as of this encounter Procedures Procedure Name Priority Date/Time Associated Diagnosis Comments CT HEAD OR BRAIN W/ & W/O CONTRAST Routine 01/21/2024 9:10 AM EDT documented in this encounter Results * CT HEAD OR BRAIN W/ & W/O CONTRAST (01/21/2024 9:10 AM EDT) Anatomical Region Laterality Modality Radiographic Nelda ging us Adelaida Carrion NP IMG XR PROCEDURES Final Result documented in this encounter Visit Diagnoses Not on filedocumented in this encounter Additional Health Concerns Assessment Noted Time PHQ-9 Depression Total Score: 8 05/18/19 24 5:00 PM EST documented as of this encounter Care Teams Annealing Torch Operator Relationship Specialty Start Date End Date José Luis Roberts MD [address] [place] [address] PCP - General Family Medicine 05/18/23 01/26/24 Unallocated, Johan Sierra MD [address] [place] [address] PCP - General Family Medicine 01/27/24 02/01/24 José Luis Roberts MD [address] [place] [address] PCP - General Family Medicine 02/02/24 Adelaida Carrion NP Referring Physician Nurse Practitioner 10/14/22 Miriam Suarez DO [address] [place] [address] Referring Physician Neurology 06/29/23 Diana De Leon LPN Licensed Practical Nurse Family Medicine 12/18/23 Adelaida Carrion NP [address] [place] [address] Nurse Practitioner Family Medicine 01/27/24 Bong Rosado MA Family Medicine 02/12/24 Juany Leggett PA [address] [place] [address] Physician Pe Electrical Engineer Neurology 07/26/24 documented as of this encounter
--- OUTSIDE RECORDS SUMMARY | 2024-08-25 04:12 | XMS_ITS | Encounter Summary ---
Author Organization [facility] Address [address] [place] [address] Care Team Providers Care Nut Packer Name Role Phone Adelaida Carrion BATTERY ENGINEER Unavailable [phone] José Luis Roberts MD Primary Care Provider [phone] José Luis Roberts MD Primary Care Provider [phone] Miriam Suarez DO Unavailable [phone] [place], Ardana SPORTING GOODS SALESPERSON Unavailable Unavailable Aida, Ardana SPORTING GOODS SALESPERSON Unavailable Unavailable Diana De Leon SPORTING GOODS SALESPERSON Unavailable Unavailable Unallocated, Noms Provider Primary Care Provi kellee Adelaida Carrion BATTERY ENGINEER Unavailable [phone] José Luis Roberts MD Primary Care Provider [phone] Bong Rosado MA Unavailable Unavailable Juany Leggett Unavailable Encounter Details Date Type Department Care Team (Late st Contact Info) Description 04/09/2023 Abstract [facility] [address] [place] [phone] Adelaida Carrion NP [address] [place] [phone] Social History Tobacco Use Types Packs/Day Years [...] Office Visit [facility] [address] [place] [address] Adelaida Carrion NP [address] [place] [address] 11/30/2024 12:40 PM EDT Office Visit [place] [facility] [address] [place] [address] Juany Caballero NP [address] [place], [place] documented as of this encounter Visit Diagnoses Not on filedocumented in this encounter Care Teams Nut Packer Relationship Specialty Start Date End Date José Luis Roberts MD PCP - General Family Medicine 10/14/22 05/17/23 José Luis Roberts MD [address] [place] [address] PCP - General Family Medicine 05/18/23 01/26/24 Unallocated, Johan Sierra MD [address] [place] [address] PCP - General Family Medicine 01/27/24 02/01/24 José Luis Roberts MD [address] [place] [address] PCP - General Family Medicine 02/02/24 Adelaida Carrion NP Referring Physician Nurse Practitioner 10/14/22 Miriam Suarez DO [address] [place] [address] Referring Physician Neurology 06/29/23 Mathew Parra LPN Registered Nurse Family Medicine 07/07/23 07/08/23 Mathew Parra LPN Licensed Practical Nurse Family Medicine 07/23/23 Diana De Leon LPN Licensed Practical Nurse Family Medicine 12/18/23 Adelaida Carrion NP [address] [place] [address] Nurse Practitioner Family Medicine 01/27/24 Bong Rosado MA Family Medicine 02/12/24 Juany Leggett PA [address] [place] [address] Physician Fund Controller Neurology 07/26/24 documented as of this encounter
--- OUTSIDE RECORDS SUMMARY | 2024-08-25 04:12 | XMS_ITS | Encounter Summary ---
Author Organization [facility] Address [address] [place] [address] Care Team Providers Care Opening Machine Cleaner Name Role Phone Adelaida Carrion NP Unavailable [phone] José Luis Roberts MD Primary Care Provider [phone] Miriam Suarez DO Unavailable [phone] Mathew Parra LPN Unavailable Unavailable Diana De Leon LPN Unavailable Unavailable Unallocated, Noms Provider Primary Care Provi kellee Adelaida Carrion NP Unavailable [phone] José Luis Roberts MD Primary Care Provider [phone] Bong Rosado MA Unavailable Unavailable Juany Leggett Unavailable Encounter Details Date Type Department Care Team (Late st Contact Info) Description 12/02/2023 Clinisync Result Encounter [facility] External Department Unsolicited Provider, Generic External Data Social History Tobacco Use Types Packs/Day Years [...] How often do you attend mu-ism or taoism serv ices? Never 08/16/2023 Do you belong to any clubs o r organizations such as mu-ism groups, unions, fraternal or athletic groups, or [...] Recorded Patient Health Questionnaire-2 Score 2 09/21/2023 [facility] of Occupat ional Health - Occupational Stress [...] slept in a alf (including now)? No 08/16/2023 Housing Stability Vital [...] Office Visit [facility] [address] [place] [address] Adelaida Carrion NP [address] [place] [address] 11/30/2024 12:40 PM EDT Office Visit [place] [facility] [address] [place] [address] Juany Caballero NP [address] [place] [address] documented as of this encounter Procedures Procedure Name Priority Date/Time Associated Diagnosis Comments XR THORACIC SPINE 2 VIEWS 12/02/2023 2:53 PM EDT documented in this encounter Results * XR thoracic spine 2 views (12/02/2023 2:53 PM EDT) Anatomical Region Laterality Modality Spine, T-spine Radiographic Nelda ging 12/02/2023 2:53 PM EDT Narrative 12/02/2023 2:55 PM EDT [address] [address] XRay Report Signed Patient: NASIM BE MR#: [id number] : 1960 Acct:[id number] Age/Sex: 62 / F ADM Date: 12/02/23 Loc: RAD Attending Dr: Elizabeth Culp NP Ordering Physician: Elizabeth Culp NP Date of Service: 12/02/23 Procedure(s): XR thoracic spine 2V Accession Number(s): [id number] cc: Adelaida Carrion CUSTOMER PROFESSIONAL; Elizabeth Culp NP [address] [address] Patient Name: NASIM BE MRN: [id number] date: 1960 Sex: F Assigned Patient Location: RAD Current Patient Location: RAD Accession/Order Number: [id number] Exam Date: 12/02/2023 14:10 Report Date: 12/02/2023 14:53 At the request of: ELIZABETH CULP Procedure: XR thoracic spine 2V EXAMINATION: XR thoracic spine 2V, XR lumbar spine 6V w bending HISTORY: Chronic Back Pain COMPARISON: No relevant comparison available. FINDINGS: BONES: Normal alignment of the thoracic and lumbar vertebral bodies with no acute fracture or spondylolisthesis. Mild to moderate spondylosis and facet osteoarthropathy DISC SPACES: Normal. No significant disc height narrowing, subluxation, or endplate abnormality. PARASPINOUS: Negative. No paraspinous abnormality is seen. OTHER: No transient spondylolisthesis with flexion or extension XR/XR thoracic spine 2V IMPRESSION: Mild to moderate 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 Signed By: 12/02/23 1455 DD/ 1453 TD/TT: Interior Design Instructor: Procedure Note Radiology, Radiologist, MD - 12/02/2023 [place] [address] XRay Report Signed Patient: NASIM BE LMR#: [id number] : 1960cct:[id number] Age/Sex: 62 / FADM Date: 12/02/23 Loc: [facility] Attending Dr: Elizabeth Culp NP Ordering Physician: Elizabeth Culp NP Date of Service: 12/02/23 Procedure(s): XR thoracic spine 2V Accession Number(s): [id number] cc: Adelaida Carrion NP; Elizabeth Culp NP The [place] [id number] Patient Name: NASIM BE MRN: [id number] date: 1960 Sex: F Assigned Patient [facility]: [facility] Current Patient Location: [facility] Accession/Order Number: [id number] Exam Date: 12/02/2023 14:10 Report Date: 12/02/2023 14:53 At the request of: ELIZABETH CULP Procedure: XR thoracic spine 2V EXAMINATION: XR thoracic spine 2V, XR lumbar spine 6V w bending HISTORY: Chronic Back Pain COMPARISON: No relevant comparison available. FINDINGS: BONES: Normal alignment of the thoracic and lumbar vertebral bodies withno acute fracture or spondylolisthesis. Mild to moderate spondylosis andfacet osteoarthropathy DISC SPACES: Normal. No significant disc height narrowing, subluxation, or endplate abnormality. PARASPINOUS: Negative. No paraspinous abnormality is seen. OTHER: No transient spondylolisthesis with flexion or extension XR/XR thoracic spine 2V IMPRESSION: Mild to moderate 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 Signed By:12/02/23 1455 DD/ 1453 TD/TT: Interior Design Instructor: us Generic External Data Provider IMG XR PROCEDURES Final Result documented in this encounter Visit Diagnoses Not on filedocumented in this encounter Additional Health Concerns Assessment Noted Time PHQ-9 Depression Total Score: 8 05/18/19 24 5:00 PM EST documented as of this encounter Care Teams Opening Machine Cleaner Relationship Specialty Start Date End Date José Luis Roberts MD [address] [place] [address] PCP - General Family Medicine 05/18/23 01/26/24 Unallocated, Noms ProviderMD [address] [place] [address] PCP - General Family Medicine 01/27/24 02/01/24 José Luis Roberts MD [address] [place] [address] PCP - General Family Medicine 02/02/24 Adelaida Carrion NP Referring Physician Nurse Practitioner 10/14/22 Miriam Suarez DO [address] [place] [address] Referring Physician Neurology 06/29/23 Mathew Parra LPN Licensed Practical Nurse Family Medicine 07/23/23 Diana De Leon LPN Licensed Practical Nurse Family Medicine 12/18/23 Adelaida Carrion NP [address] [place] [address] Nurse Practitioner Family Medicine 01/27/24 Bong Rosado MA Family Medicine 02/12/24 Juany Leggett PA [address] [facility] [address] [place] [address] Physician Cut Tobacco Bulker Neurology 07/26/24 documented as of this encounter
[2024-08-25 04:35] LABS: Basophils Absolute Auto 0.1 10^3/uL (0.0-0.1); Basophils Percent Auto 0.8 % (0.2-2.0); Eosinophils Absolute Auto 0.2 10^3/uL (0.0-0.7); Eosinophils Percent Auto 2.6 % (0.9-7.0); Hematocrit 39.7 % (36.0-48.0); Hemoglobin 13.4 g/dL (12.0-16.0); Immature Granulocytes Abs Auto 0.02 10^3/uL (0.00-0.03); Immature Granulocytes Pct Auto 0.3 % (0.0-0.5); Lymphocytes Absolute Auto 2.3 10^3/uL (1.2-3.8); Lymphocytes Percent Auto 29.6 % (20.5-60.0); Mean Corpuscular HGB Conc 33.8 g/dL (29.9-35.2); Mean Corpuscular Hemoglobin 29.3 pg (26.7-34.0); Mean Corpuscular Volume 86.7 fL (81.0-99.0); Mean Platelet Volume 11.1 fL (9.5-13.5); Monocytes Absolute Auto 0.6 10^3/uL (0.3-0.8); Monocytes Percent Auto 7.2 % (1.7-12.0); Neutrophils Absolute Auto 4.6 10^3/uL (1.4-6.5); Neutrophils Percent Auto 59.5 % (43.0-75.0); Platelet Count 294 10^3/uL (150-450); Red Blood Count 4.58 10^6/uL (4.20-5.40); Red Cell Distribution Width 13.6 % (11.0-15.0); White Blood Count 7.8 10^3/uL (4.0-11.0)
[2024-08-25 04:36] LABS: Bilirubin Urine NEGATIVE (NEGATIVE); Blood Urine NEGATIVE (NEGATIVE); Clarity Urine CLEAR (CLEAR); Color Urine YELLOW (YELLOW); Glucose Urine UA NEGATIVE (NEGATIVE); Ketones Urine NEGATIVE (NEGATIVE); Leukocyte Esterase Urine TRACE (NEGATIVE); Nitrite Urine NEGATIVE (NEGATIVE); Protein Urine NEGATIVE (NEG/TRACE); Specific Gravity Urine 1.015 (1.005-1.025); Urobilinogen Urine 0.2 EU/dL (0.2-1.0)
--- NOTE | 2024-08-25 04:37 | PC.NURSE ---
blood and urine sent to lab. Patient states she had a counselor through [employer], she is still able to contact him, but she no longer has scheduled appointments because she graduated their program 6 months ago. She called the [facility] crisis line a few days ago but did not speak to anyone because she was afraid.
[2024-08-25 04:43] LABS: Bacteria Urine NONE SEEN #/HPF (NONE SEEN); Cast Seen? SEEN #/LPF (NONE SEEN); Crystals Seen? None Seen #/HPF (None Seen); Hyaline Casts Urine FEW; Mucus Urine MODERATE (NONE SEEN); RBC Urine 0-2 #/HPF (0-2); Squamous Epithelial Cell Urine FEW #/LPF (NONE/RARE); Transitional Epi Cells Urine FEW #/LPF (NONE SEEN)
--- NOTE | 2024-08-25 04:45 | ED.PSYCH1 ---
HPI - Psych General Chief Complaint: Psychiatric Symptoms Stated Complaint: PSYCHIATRIC SYMPTOMS Time Seen by Provider: 08/25/24 04:11 Source: Reports patient Mode of arrival: walk-in Limitations: Reports no limitations History of Present Illness HPI Narrative: This 63-year-old female is brought to the emergency department by her . For the past several days to week she has been experiencing feelings of self-harm. She states she feels overwhelmed and depressed. The patient states she has a history of depression, anxiety, bipolar 2 disorder and borderline personality disorder. She has formally been a patient of [email or web address] and recently completed an EMDR program in which I movements are used to reprogram the brain. She is currently not in any counseling. She is on multiple medications that she maintains compliance with. She states that she knows that she is starting to decompensate psychiatrically when she starts picking and has been picking at her chest and back. She has multiple sores on her chest wall that she has covered with moleskin and several on her lower back that she has not covered. She states this is embarrassing to her. The patient and her live with their son and 3-year-old grandson. They have been taking care of their 3-year-old grandson since he was 1 month old. The patient admits this is a lot for her. He has been going to preschool this year but his last day of preschool is today and then he will be home all summer. The patient denies any esha suicidal ideation. She has been admitted psychiatrically several times in the past most recently approximately 4 years ago. The patient also has a history of a stroke and multiple medical problems. She is not having any strokelike symptoms today. She denies any chest pain or shortness of breath. She was recently taken off of Klonopin in conjunction with her neurologist. She states she was taking this for her restless leg syndrome but her ropinirole has been increased. She is not having any obvious restless leg issues at this time but states inside she feels like she is coming unhinged. She does admit to using marijuana at times to help her sleep but not for her anxiety. Related Data Home Medications ?Medication ?Instructions ?Recorded ?Confirmed amlodipine 10 mg tablet (Norvasc) 10 mg PO DAILY 09/10/22 08/25/24 biotin 1 mg capsule 5 mg PO DAILY 09/10/22 08/25/24 cariprazine 4.5 mg capsule 4.5 mg PO Q24H 09/10/22 08/25/24 (Vraylar) cetirizine 10 mg tablet (24Hour 10 mg PO DAILY PRN allergy symptoms 09/10/22 08/25/24 Allergy) duloxetine 60 mg capsule,delayed 60 mg PO BID 09/10/22 08/25/24 release ferrous sulfate 325 mg (65 mg 325 mg PO BID 09/10/22 08/25/24 iron) tablet (FeroSul) losartan 50 mg tablet (Cozaar) 100 mg PO DAILY 09/10/22 08/25/24 magnesium 200 mg tablet 400 mg PO QDAY 09/10/22 08/25/24 melatonin 12 mg tablet 12 mg PO .HS PRN sleep 09/10/22 08/25/24 omeprazole 20 mg capsule,delayed 20 mg PO QDAY 09/10/22 08/25/24 release ropinirole 4 mg tablet 4 mg PO QDAY 09/10/22 08/25/24 trazodone 150 mg tablet 150 mg PO .HS 09/10/22 08/25/24 fluticasone propionate 50 1 spray intranasal DAILY PRN 10/20/23 08/25/24 mcg/actuation nasal allergy symptoms spray,suspension (Flonase Allergy Relief) spironolactone 50 mg tablet 50 mg PO DAILY 10/20/23 08/25/24 gabapentin 300 mg capsule 300 mg PO BID 11/03/23 08/25/24 calcium citrate 200 mg PO QID 11/04/23 08/25/24 carvedilol 12.5 mg tablet 12.5 mg PO Q12H 11/04/23 08/25/24 multivitamin 1 tab PO DAILY 11/04/23 08/25/24 fexofenadine 60 mg tablet (Naida 60 mg PO BID 08/08/24 08/08/24 Allergy) Previous Rx's ?Medication ?Instructions ?Recorded tizanidine 2 mg tablet 2 mg PO TID PRN muscle spasticity 10/01/23 #90 tabs Allergies Allergy/AdvReac Type Severity Reaction Status Date / Time levetiracetam (From [facility]) Allergy Severe Unknown Verified 08/25/24 04:12 adhesive Allergy Intermediate Blister Verified 08/25/24 04:12 Penicillins Allergy Intermediate Unknown Verified 08/25/24 04:12 tetracycline Allergy Intermediate Unknown Verified 08/25/24 04:12 eszopiclone (From Lunesta) Allergy Unknown Verified 08/25/24 04:12 milnacipran (From Savella) AdvReac Intermediate Agitated Verified 08/25/24 04:12 prochlorperazine (From AdvReac Intermediate Agitated Verified 08/25/24 04:12 Compazine) Review of Systems ROS Status of ROS 10 or more systems reviewed and unremarkable except as noted in history and below [facility] Medical History FH: bariatric surgery ?Z84.89 - Family history of other specified conditions (ICD-10) Upper back pain ?M54.9 - Dorsalgia, unspecified (ICD-10) Osteoarthritis ?M19.90 - Unspecified osteoarthritis, unspecified site (ICD-10) Neck pain ?M54.2 - Cervicalgia (ICD-10) Low back pain ?M54.50 - Low back pain, unspecified (ICD-10) Fibromyalgia ?M79.7 - Fibromyalgia (ICD-10) Bipolar 1 disorder ?F31.9 - Bipolar disorder, unspecified (ICD-10) Acid reflux ?K21.9 - Gastro-esophageal reflux disease without esophagitis (ICD-10) Obesity ?E66.9 - Obesity, unspecified (ICD-10) Sleep apnea ?G47.30 - Sleep apnea, unspecified (ICD-10) Heart murmur ?R01.1 - Cardiac murmur, unspecified (ICD-10) High cholesterol ?E78.00 - Pure hypercholesterolemia, unspecified (ICD-10) Hypertension ?I10 - Essential (primary) hypertension (ICD-10) Surgical History S/P dilatation and curettage ?Z98.890 - Other specified postprocedural states (ICD-10) H/O breast biopsy ?Z98.890 - Other specified postprocedural states (ICD-10) S/P ORIF (open reduction internal fixation) fracture ?Z98.890 - Other specified postprocedural states (ICD-10) ?Z87.81 - Personal history of (healed) traumatic fracture (ICD-10) Hx of laparoscopic gastric banding ?Z98.84 - Bariatric surgery status (ICD-10) History of tonsillectomy and adenoidectomy ?Z90.89 - Acquired absence of other organs (ICD-10) History of appendectomy ?Z90.49 - Acquired absence of other specified parts of digestive tract (ICD-10) History of hemilaminectomy ?Z98.890 - Other specified postprocedural states (ICD-10) History of cholecystectomy ?Z90.49 - Acquired absence of other specified parts of digestive tract (ICD-10) Previous section ?Z98.891 - History of uterine scar from previous surgery (ICD-10) Social History Smoking status: Former smoker Little interest or pleasure in doing things: several days Feeling down, depressed, or hopeless: several days Exam Narrative Exam Narrative: Vital signs and Nursing Notes reviewed: Patient is afebrile with a normal pulse, blood pressure is elevated 172/98, she is not hypoxic with pulse ox of 99% on room air General: Awake, alert, oriented, no acute distress, tearful at times but forthcoming, no respiratory distress HEENT: Normocephalic atraumatic, mucous membranes are moist and pink, eyes are clear, normal conjunctiva, vision is grossly intact Neck: Supple, no meningeal signs, no anterior or posterior cervical lymphadenopathy Chest: Lungs are clear to auscultation with good air entry, there is no wheezing rhonchi or rales appreciated no accessory muscle use, patient is speaking in complete sentences-no chest wall tenderness to palpation CVS: Regular rate and rhythm S1-S2, no murmurs rubs or gallops, pulses are brisk and equal bilaterally ABD: Soft, nondistended, nontender, no rebound guarding or rigidity, bowel sounds are normal, no pulsatile masses appreciated Extremities: Moving all extremities, no lower extremity tenderness or swelling noted, negative Homans' sign, pulses are brisk and equal bilaterally Skin: Patient has multiple sores on her chest wall that are covered with moleskin at this time and several small sores on her posterior lower back that are not covered with moleskin, there is no sign of acute infection or cellulitis. Neuro: No focal deficits Psych: Admits to ongoing anxiety, depression, thoughts of self-harm Constitutional Vital Signs, click to edit/add: Last Vital Signs Temp 98.4 F 08/25/24 04:02 Pulse 76 08/25/24 04:02 Resp 20 08/25/24 04:02 BP 172/98 H 08/25/24 04:02 Pulse Ox 99 08/25/24 04:02 O2 Del Method Room Air 08/25/24 04:02 Course Vital Signs Vital signs: Vital Signs Temperature 98.4 F 08/25/24 04:02 Pulse Rate 76 08/25/24 04:02 Respiratory Rate 20 08/25/24 04:02 Blood Pressure 172/98 H 08/25/24 04:02 Pulse Oximetry 99 08/25/24 04:02 Oxygen Delivery Method Room Air 08/25/24 04:02 Temperature 98.4 F 08/25/24 04:02 Pulse Rate 76 08/25/24 04:02 Respiratory Rate 20 08/25/24 04:02 Blood Pressure 172/98 H 08/25/24 04:02 Pulse Oximetry 99 08/25/24 04:02 Oxygen Delivery Method Room Air 08/25/24 04:02 MDM - Psych MDM Narrative Medical decision making narrative: This 63-year-old female with a history of depression, anxiety, bipolar 2 disorder and borderline personality disorder is brought to the emergency department by her for evaluation of thoughts of self-harm that has been ongoing for the past several days to week. She is on multiple psychiatric medications that she maintains compliance with. The patient has been picking at her skin which she states is consistent with her psychiatric conditions worsening. She denies any esha suicidal ideation but is tearful stating that she is embarrassed but feels that she is not able to keep herself safe. She is here with her who is supportive of her. She lives with her son and grandson. She admits that taking care of her 3-year-old does cause her some degree of additional stress. Medical clearance workup was ordered. She has a normal sinus rhythm on her EKG with a right bundle branch block at 70 bpm. She has a normal white count and hemoglobin. Urine is negative for infection. Urine is positive for benzodiazepines which she does take for her restless leg syndrome but has recently been weaning off of in conjunction with her neurologist. She was given a dose of Ativan in the emergency department. Medical clearance labs are reviewed and are essentially normal. She will be presented to [facility] later this morning when they are available for consultation. Lab Data Attestation: I reviewed the patient's lab results. Labs: Lab Results 08/25/24 08/25/24 Range/Units 04:17 04:20 WBC 7.8 (4.0-11.0) 10^3/uL RBC 4.58 (4.20-5.40) 10^6/uL Hgb 13.4 (12.0-16.0) g/dL Hct 39.7 (36.0-48.0) % MCV 86.7 (81.0-99.0) fL MCH 29.3 (26.7-34.0) pg MCHC 33.8 (29.9-35.2) g/dL RDW 13.6 (11.0-15.0) % Plt Count 294 (150-450) 10^3/uL MPV 11.1 (9.5-13.5) fL Neut % (Auto) 59.5 (43.0-75.0) % Lymph % (Auto) 29.6 (20.5-60.0) % [place] % (Auto) 7.2 (1.7-12.0) % Eos % (Auto) 2.6 (0.9-7.0) % Baso % (Auto) 0.8 (0.2-2.0) % Neut # (Auto) 4.6 (1.4-6.5) 10^3/uL Lymph # (Auto) 2.3 (1.2-3.8) 10^3/uL [place] # (Auto) 0.6 (0.3-0.8) 10^3/uL Eos # (Auto) 0.2 (0.0-0.7) 10^3/uL Baso # (Auto) 0.1 (0.0-0.1) 10^3/uL Abs Immat Gran (auto) 0.02 (0.00-0.03) 10^3/uL Imm/Tot Granulo (auto) 0.3 (0.0-0.5) % Sodium 140 (136-145) mmol/L Potassium 4.2 (3.5-5.1) mmol/L Chloride 106 (98-107) mmol/L Carbon Dioxide 27.2 (21.0-32.0) mmol/L Anion Gap 11.0 BUN 21.0 H (7.0-18.0) mg/dL Creatinine 1.33 H (0.55-1.02) mg/dL Est GFR ( Amer) 49 L (>=60 mL/min/1.73m^2) Est GFR (Non-Af Amer) 40 L (>=60 mL/min/1.73m^2) BUN/Creatinine Ratio 15.8 Glucose 108 H (74-106) mg/dL Calcium 9.4 (8.5-10.1) mg/dL Total Bilirubin 0.4 (0.2-1.0) mg/dL AST 19 (15-37) U/L ALT 27 (14-59) U/L Alkaline Phosphatase 91 (46-116) U/L Total Protein 7.5 (6.4-8.2) g/dL Albumin 3.9 (3.4-5.0) g/dL Globulin 3.6 g/dL Albumin/Globulin Ratio 1.1 Urine Color Yellow (YELLOW) Urine Clarity Clear (CLEAR) Urine pH 6.0 (5.0-9.0) Ur Specific [place] 1.015 (1.005-1.025) Urine Protein Negative (NEG/TRACE) mg/dL Urine Glucose (UA) Negative (NEGATIVE) mg/dL Urine Ketones Negative (NEGATIVE) mg/dL Urine Occult Blood Negative (NEGATIVE) Urine Nitrite Negative (NEGATIVE) Urine Bilirubin Negative (NEGATIVE) Urine Urobilinogen 0.2 (0.2-1.0) EU/dL Ur Leukocyte Esterase Trace A (NEGATIVE) Urine RBC 0-2 (0-2) #/HPF Urine WBC 2-5 A (NONE SEEN) #/HPF Ur Squamous Epith Cells Few A (NONE/RARE) #/LPF Ur Transition Epith Cell Few A (NONE SEEN) #/LPF Urine Crystals None seen (None Seen) #/HPF Urine Bacteria None seen (NONE SEEN) #/HPF Urine Casts Seen A (NONE SEEN) #/LPF Hyaline Casts Few Urine Mucus Moderate A (NONE SEEN) Salicylates 4.1 (<=19.9) mg/dL Urine Opiates Screen Negative (NEGATIVE) Ur Buprenorphine Scrn Negative (NEGATIVE) Ur Oxycodone Screen Negative (NEGATIVE) Urine Methadone Screen Negative (NEGATIVE) Acetaminophen <2.0 L (10.0-30.0) ug/mL Ur Barbiturates Screen Negative (NEGATIVE) U Tricyclic Antidepress Negative (NEGATIVE) Ur Phencyclidine Scrn Negative (NEGATIVE) Ur Amphetamines Screen Negative (NEGATIVE) U Methamphetamines Scrn Negative (NEGATIVE) U Benzodiazepines Scrn Positive A (NEGATIVE) Urine Cocaine Screen Negative (NEGATIVE) U Cannabinoids Screen Negative (NEGATIVE) Ethanol Quant <3 mg/dL ECG Data Attestation: I personally reviewed and interpreted this ECG as follows: (Sinus rhythm at 70 bpm, right bundle branch block, no acute ST segment elevation or T wave inversion) Discharge Plan Discharge Patient Disposition: Still a Patient
[2024-08-25 04:48] LABS: Amphetamine Screen Urine NEGATIVE (NEGATIVE); Barbiturates Screen Urine NEGATIVE (NEGATIVE); Benzodiazepines Screen Urine POSITIVE (NEGATIVE); Buprenorphine Screen Urine NEGATIVE (NEGATIVE); Cannabinoid Screen Urine NEGATIVE (NEGATIVE); Cocaine Screen Urine NEGATIVE (NEGATIVE); Methadone Screen Urine NEGATIVE (NEGATIVE); Methamphetamines Screen Urine NEGATIVE (NEGATIVE); Opiate Screen Urine NEGATIVE (NEGATIVE); Oxycodone Screen Urine NEGATIVE (NEGATIVE); Phencyclidine Screen Urine NEGATIVE (NEGATIVE); Tricyclic Antidepressant Urine NEGATIVE (NEGATIVE)
[2024-08-25 04:50] LABS: Alanine Aminotransferase 27 U/L (14-59); Albumin Globulin Ratio 1.1; Albumin Level 3.9 g/dL (3.4-5.0); Alkaline Phosphatase 91 U/L (46-116); Aspartate Amino Transferase 19 U/L (15-37); BUN Creatinine Ratio 15.8; Bilirubin Total 0.4 mg/dL (0.2-1.0); Calcium 9.4 mg/dL (8.5-10.1); Carbon Dioxide 27.2 mmol/L (21.0-32.0); Chloride 106 mmol/L (98-107); Estimated GFR (African America 49 (>=60 mL/min/1.73m^2); Estimated GFR (Non-African Ame 40 (>=60 mL/min/1.73m^2); Globulin 3.6 g/dL; Glucose 108 mg/dL (74-106); Potassium 4.2 mmol/L (3.5-5.1); Sodium 140 mmol/L (136-145); Total Protein 7.5 g/dL (6.4-8.2)
[2024-08-25 05:03] LABS: Acetaminophen <2.0 ug/mL (10.0-30.0); Salicylate 4.1 mg/dL (<=19.9)
[2024-08-25 05:11] LABS: Ethanol <3 mg/dL
[2024-08-25] MEDS: LORAZEPAM 0.5 MG TABLET 1 MG PO (05:14)
[2024-08-25 07:07] VITALS: BP 126/82; PULSE 78; O2SAT 97
--- NOTE | 2024-08-25 07:35 | PC.NURSE ---
Spoke with Rachana from [facility], she is updated on patient. Rachana will have counselor call back to speak with patient when available.
--- NOTE | 2024-08-25 07:43 | PC.NURSE ---
Patient speaking with Nasim from [facility] via telephone at this time.
--- NOTE | 2024-08-25 07:53 | PC.NURSE ---
Rachana from [facility] calls back and relays that she spoke with patient and and patient is safe to go home and [facility] counseling will be calling patient to schedule out patient sessions. Dr. Galvan aware.
--- NOTE | 2024-08-25 07:56 | ED.GENADUL1 ---
HPI HPI - General Adult General Chief complaint: Psychiatric Symptoms Stated complaint: PSYCHIATRIC SYMPTOMS Time Seen by Provider: 08/25/24 04:11 Source: patient Mode of arrival: walk-in Limitations: no limitations History of Present Illness HPI narrative: 63-year-old female presented to the emergency department and was initially seen by Dr. Keene and signed out to me after discussing the case with her thoroughly. Please see her full history and physical exam. Related Data Home Medications ?Medication ?Instructions ?Recorded ?Confirmed amlodipine 10 mg tablet (Norvasc) 10 mg PO DAILY 09/10/22 08/25/24 biotin 1 mg capsule 5 mg PO DAILY 09/10/22 08/25/24 cariprazine 4.5 mg capsule 4.5 mg PO Q24H 09/10/22 08/25/24 (Vraylar) cetirizine 10 mg tablet (24Hour 10 mg PO DAILY PRN allergy symptoms 09/10/22 08/25/24 Allergy) duloxetine 60 mg capsule,delayed 60 mg PO BID 09/10/22 08/25/24 release ferrous sulfate 325 mg (65 mg 325 mg PO BID 09/10/22 08/25/24 iron) tablet (FeroSul) losartan 50 mg tablet (Cozaar) 100 mg PO DAILY 09/10/22 08/25/24 magnesium 200 mg tablet 400 mg PO QDAY 09/10/22 08/25/24 melatonin 12 mg tablet 12 mg PO .HS PRN sleep 09/10/22 08/25/24 omeprazole 20 mg capsule,delayed 20 mg PO QDAY 09/10/22 08/25/24 release ropinirole 4 mg tablet 4 mg PO QDAY 09/10/22 08/25/24 trazodone 150 mg tablet 150 mg PO .HS 09/10/22 08/25/24 fluticasone propionate 50 1 spray intranasal DAILY PRN 10/20/23 08/25/24 mcg/actuation nasal allergy symptoms spray,suspension (Flonase Allergy Relief) spironolactone 50 mg tablet 50 mg PO DAILY 10/20/23 08/25/24 gabapentin 300 mg capsule 300 mg PO BID 11/03/23 08/25/24 calcium citrate 200 mg PO QID 11/04/23 08/25/24 carvedilol 12.5 mg tablet 12.5 mg PO Q12H 11/04/23 08/25/24 multivitamin 1 tab PO DAILY 11/04/23 08/25/24 fexofenadine 60 mg tablet (Anida 60 mg PO BID 08/08/24 08/08/24 Allergy) Previous Rx's ?Medication ?Instructions ?Recorded tizanidine 2 mg tablet 2 mg PO TID PRN muscle spasticity 10/01/23 #90 tabs Allergies Allergy/AdvReac Type Severity Reaction Status Date / Time levetiracetam (From Keppra) Allergy Severe Unknown Verified 08/25/24 04:12 adhesive Allergy Intermediate Blister Verified 08/25/24 04:12 Penicillins Allergy Intermediate Unknown Verified 08/25/24 04:12 tetracycline Allergy Intermediate Unknown Verified 08/25/24 04:12 eszopiclone (From Lunesta) Allergy Unknown Verified 08/25/24 04:12 milnacipran (From Savella) AdvReac Intermediate Agitated Verified 08/25/24 04:12 prochlorperazine (From AdvReac Intermediate Agitated Verified 08/25/24 04:12 Compazine) Opioid HPI Opioid Management Most Recent Opioid Data: Last Pain Scale 4 08/08/24, 08:49 Ur Phencyclidine Scrn, (NEGATIVE) Negative Today, 04:20 [facility] Medical History FH: bariatric surgery ?Z84.89 - Family history of other specified conditions (ICD-10) Upper back pain ?M54.9 - Dorsalgia, unspecified (ICD-10) Osteoarthritis ?M19.90 - Unspecified osteoarthritis, unspecified site (ICD-10) Neck pain ?M54.2 - Cervicalgia (ICD-10) Low back pain ?M54.50 - Low back pain, unspecified (ICD-10) Fibromyalgia ?M79.7 - Fibromyalgia (ICD-10) Bipolar 1 disorder ?F31.9 - Bipolar disorder, unspecified (ICD-10) Acid reflux ?K21.9 - Gastro-esophageal reflux disease without esophagitis (ICD-10) Obesity ?E66.9 - Obesity, unspecified (ICD-10) Sleep apnea ?G47.30 - Sleep apnea, unspecified (ICD-10) Heart murmur ?R01.1 - Cardiac murmur, unspecified (ICD-10) High cholesterol ?E78.00 - Pure hypercholesterolemia, unspecified (ICD-10) Hypertension ?I10 - Essential (primary) hypertension (ICD-10) Surgical History S/P dilatation and curettage ?Z98.890 - Other specified postprocedural states (ICD-10) H/O breast biopsy ?Z98.890 - Other specified postprocedural states (ICD-10) S/P ORIF (open reduction internal fixation) fracture ?Z98.890 - Other specified postprocedural states (ICD-10) ?Z87.81 - Personal history of (healed) traumatic fracture (ICD-10) Hx of laparoscopic gastric banding ?Z98.84 - Bariatric surgery status (ICD-10) History of tonsillectomy and adenoidectomy ?Z90.89 - Acquired absence of other organs (ICD-10) History of appendectomy ?Z90.49 - Acquired absence of other specified parts of digestive tract (ICD-10) History of hemilaminectomy ?Z98.890 - Other specified postprocedural states (ICD-10) History of cholecystectomy ?Z90.49 - Acquired absence of other specified parts of digestive tract (ICD-10) Previous section ?Z98.891 - History of uterine scar from previous surgery (ICD-10) Social History Smoking status: Former smoker Little interest or pleasure in doing things: several days Feeling down, depressed, or hopeless: several days Exam Constitutional Vital Signs, click to edit/add: Last Vital Signs Temp 98.4 F 08/25/24 04:02 Pulse 78 08/25/24 07:07 Resp 20 08/25/24 07:07 BP 126/82 08/25/24 07:07 Pulse Ox 97 08/25/24 07:07 O2 Del Method Room Air 08/25/24 07:07 Course Vital Signs Vital signs: Vital Signs Temperature 98.4 F 08/25/24 04:02 Pulse Rate 76 08/25/24 04:02 Respiratory Rate 20 08/25/24 04:02 Blood Pressure 172/98 H 08/25/24 04:02 Pulse Oximetry 99 08/25/24 04:02 Oxygen Delivery Method Room Air 08/25/24 04:02 Temperature 98.4 F 08/25/24 04:02 Pulse Rate 78 08/25/24 07:07 Respiratory Rate 20 08/25/24 07:07 Blood Pressure 126/82 08/25/24 07:07 Pulse Oximetry 97 08/25/24 07:07 Oxygen Delivery Method Room Air 08/25/24 07:07 Medical Decision Making MDM Narrative Medical decision making narrative: The patient has been interviewed by mental health services and is cleared to go home. They will contact her for follow-up. Differential Diagnosis Differential Diagnosis: Anxiety, depression, bipolar Lab Data Lab results reviewed: Yes I reviewed the patient's lab results Labs: Lab Results 08/25/24 08/25/24 Range/Units 04:17 04:20 WBC 7.8 (4.0-11.0) 10^3/uL RBC 4.58 (4.20-5.40) 10^6/uL Hgb 13.4 (12.0-16.0) g/dL Hct 39.7 (36.0-48.0) % MCV 86.7 (81.0-99.0) fL MCH 29.3 (26.7-34.0) pg MCHC 33.8 (29.9-35.2) g/dL RDW 13.6 (11.0-15.0) % Plt Count 294 (150-450) 10^3/uL MPV 11.1 (9.5-13.5) fL Neut % (Auto) 59.5 (43.0-75.0) % Lymph % (Auto) 29.6 (20.5-60.0) % [place] % (Auto) 7.2 (1.7-12.0) % Eos % (Auto) 2.6 (0.9-7.0) % Baso % (Auto) 0.8 (0.2-2.0) % Neut # (Auto) 4.6 (1.4-6.5) 10^3/uL Lymph # (Auto) 2.3 (1.2-3.8) 10^3/uL [place] # (Auto) 0.6 (0.3-0.8) 10^3/uL Eos # (Auto) 0.2 (0.0-0.7) 10^3/uL Baso # (Auto) 0.1 (0.0-0.1) 10^3/uL Abs Immat Gran (auto) 0.02 (0.00-0.03) 10^3/uL Imm/Tot Granulo (auto) 0.3 (0.0-0.5) % Sodium 140 (136-145) mmol/L Potassium 4.2 (3.5-5.1) mmol/L Chloride 106 (98-107) mmol/L Carbon Dioxide 27.2 (21.0-32.0) mmol/L Anion Gap 11.0 BUN 21.0 H (7.0-18.0) mg/dL Creatinine 1.33 H (0.55-1.02) mg/dL Est GFR ( Amer) 49 L (>=60 mL/min/1.73m^2) Est GFR (Non-Af Amer) 40 L (>=60 mL/min/1.73m^2) BUN/Creatinine Ratio 15.8 Glucose 108 H (74-106) mg/dL Calcium 9.4 (8.5-10.1) mg/dL Total Bilirubin 0.4 (0.2-1.0) mg/dL AST 19 (15-37) U/L ALT 27 (14-59) U/L Alkaline Phosphatase 91 (46-116) U/L Total Protein 7.5 (6.4-8.2) g/dL Albumin 3.9 (3.4-5.0) g/dL Globulin 3.6 g/dL Albumin/Globulin Ratio 1.1 Urine Color Yellow (YELLOW) Urine Clarity Clear (CLEAR) Urine pH 6.0 (5.0-9.0) Ur Specific [place] 1.015 (1.005-1.025) Urine Protein Negative (NEG/TRACE) mg/dL Urine Glucose (UA) Negative (NEGATIVE) mg/dL Urine Ketones Negative (NEGATIVE) mg/dL Urine Occult Blood Negative (NEGATIVE) Urine Nitrite Negative (NEGATIVE) Urine Bilirubin Negative (NEGATIVE) Urine Urobilinogen 0.2 (0.2-1.0) EU/dL Ur Leukocyte Esterase Trace A (NEGATIVE) Urine RBC 0-2 (0-2) #/HPF Urine WBC 2-5 A (NONE SEEN) #/HPF Ur Squamous Epith Cells Few A (NONE/RARE) #/LPF Ur Transition Epith Cell Few A (NONE SEEN) #/LPF Urine Crystals None seen (None Seen) #/HPF Urine Bacteria None seen (NONE SEEN) #/HPF Urine Casts Seen A (NONE SEEN) #/LPF Hyaline Casts Few Urine Mucus Moderate A (NONE SEEN) Salicylates 4.1 (<=19.9) mg/dL Urine Opiates Screen Negative (NEGATIVE) Ur Buprenorphine Scrn Negative (NEGATIVE) Ur Oxycodone Screen Negative (NEGATIVE) Urine Methadone Screen Negative (NEGATIVE) Acetaminophen <2.0 L (10.0-30.0) ug/mL Ur Barbiturates Screen Negative (NEGATIVE) U Tricyclic Antidepress Negative (NEGATIVE) Ur Phencyclidine Scrn Negative (NEGATIVE) Ur Amphetamines Screen Negative (NEGATIVE) U Methamphetamines Scrn Negative (NEGATIVE) U Benzodiazepines Scrn Positive A (NEGATIVE) Urine Cocaine Screen Negative (NEGATIVE) U Cannabinoids Screen Negative (NEGATIVE) Ethanol Quant <3 mg/dL Discharge Plan Discharge Chief Complaint: Psychiatric Symptoms Clinical Impression: Bipolar depression, Anxiety and depression, Intentional self-harm Patient Disposition: Home, Self-Care Time of Disposition Decision: 07:56 Condition: Good Mode of Transportation: Private Vehicle Prescriptions / Home Meds: No Action omeprazole 20 mg capsule,delayed release(DR/EC) 20 mg PO QDAY ropinirole 4 mg tablet 4 mg PO QDAY duloxetine 60 mg capsule,delayed release(DR/EC) 60 mg PO BID Vraylar 4.5 mg capsule 4.5 mg PO Q24H biotin 1 mg capsule 5 mg PO DAILY ferrous sulfate [FeroSul] 325 mg (65 mg iron) tablet 325 mg PO BID losartan [Cozaar] 50 mg tablet 100 mg PO DAILY magnesium 200 mg tablet 400 mg PO QDAY melatonin 12 mg tablet 12 mg PO .HS PRN (Reason: sleep) amlodipine [Norvasc] 10 mg tablet 10 mg PO DAILY cetirizine [24Hour Allergy] 10 mg tablet 10 mg PO DAILY PRN (Reason: allergy symptoms) trazodone 150 mg tablet 150 mg PO .HS tizanidine 2 mg tablet 2 mg PO TID PRN (Reason: muscle spasticity) Qty: 90 2RF gabapentin 300 mg capsule 300 mg PO BID carvedilol 12.5 mg tablet 12.5 mg PO Q12H calcium citrate 200 mg (950 mg) tablet 200 mg PO QID multivitamin Tablet 1 tab PO DAILY fexofenadine [Naida Allergy] 60 mg tablet 60 mg PO BID fluticasone propionate [Flonase Allergy Relief] 50 mcg/actuation spray,suspension 1 spray intranasal DAILY PRN (Reason: allergy symptoms) Rx Instructions: administer into each nostril spironolactone 50 mg tablet 50 mg PO DAILY Print Language: Belarusian Instructions: Bipolar Disorder (ED) Additional Instructions: [facility] will contact you for follow-up. Referrals: Adelaida Carrion NP [Primary Care Provider, Family Practice] - 1 week
== END 2024-08-25 08:03 | disposition home or self-care (01) ==
PROVIDERS: Emergency Medicine; Emergency Provider Emergency Medicine; PCP Nurse Practitioner
DX: F31.81 Bipolar II disorder (principal); F41.9 Anxiety disorder, unspecified; R45.88 Nonsuicidal self-harm; F60.3 Borderline personality disorder; Z98.84 Bariatric surgery status; Z90.49 Acquired absence of other specified parts of digestive tract; Z87.891 Personal history of nicotine dependence; Z79.899 Other long term (current) drug therapy; Z86.73 Personal history of transient ischemic attack (TIA), and cerebral infarction without residual deficits; G25.81 Restless legs syndrome
CPT/HCPCS: 36415; 80053; 80179; 80307; 80320; 80329; 81001; 85025; 93005; 99285

== ENCOUNTER 2024-09-08 09:42 | Outpatient (OUT) | payer MEDICARE, SELFPAY ==
--- NOTE | 2024-09-08 10:11 | PM.CN ---
Consult Note: HPI Data of Consult Patient: known to practice within the last 3 years Requesting Physician: Bhakti Culp NP Primary Care Provider: Adelaida Carrion NP Consult Narrative Reason for consult: f/u Narrative: Nasim Ingram a 63 year old female with longstanding low back pain and right shoulder pain presents for evaluation. has engaged in provider guided HEP > 6 weeks without benefit, failed tylenol heat and ice, cannot utilize NSAIDs with hx of gastric bypass. currently utilizing gabapentin, tizanidine, duloxetine with mild benefit, denies side effects. recently underwent right suprascapular/axillary RFA with >90% improvement in shoulder pain, reports pain 0/10. as for low back pain shes noting increased left sided low back pain, deep ache stabbing constant pain. Pain today 6/10 increasing to 10/10 with twisting, pushing, pulling, standing, walking, reaching, ADLs, activity, sleep. pain improved with lying, sitting, and heat PRN. cc:: CC: Bhakti Culp NP Review of Systems ROS Status of ROS 10 or more systems reviewed and unremarkable except as noted in history and below Musculoskeletal Reports: back pain and joint pain [facility] Medical History FH: bariatric surgery ?Z84.89 - Family history of other specified conditions (ICD-10) Upper back pain ?M54.9 - Dorsalgia, unspecified (ICD-10) Osteoarthritis ?M19.90 - Unspecified osteoarthritis, unspecified site (ICD-10) Neck pain ?M54.2 - Cervicalgia (ICD-10) Low back pain ?M54.50 - Low back pain, unspecified (ICD-10) Fibromyalgia ?M79.7 - Fibromyalgia (ICD-10) Bipolar 1 disorder ?F31.9 - Bipolar disorder, unspecified (ICD-10) Acid reflux ?K21.9 - Gastro-esophageal reflux disease without esophagitis (ICD-10) Obesity ?E66.9 - Obesity, unspecified (ICD-10) Sleep apnea ?G47.30 - Sleep apnea, unspecified (ICD-10) Heart murmur ?R01.1 - Cardiac murmur, unspecified (ICD-10) High cholesterol ?E78.00 - Pure hypercholesterolemia, unspecified (ICD-10) Hypertension ?I10 - Essential (primary) hypertension (ICD-10) Surgical History S/P dilatation and curettage ?Z98.890 - Other specified postprocedural states (ICD-10) H/O breast biopsy ?Z98.890 - Other specified postprocedural states (ICD-10) S/P ORIF (open reduction internal fixation) fracture ?Z98.890 - Other specified postprocedural states (ICD-10) ?Z87.81 - Personal history of (healed) traumatic fracture (ICD-10) Hx of laparoscopic gastric banding ?Z98.84 - Bariatric surgery status (ICD-10) History of tonsillectomy and adenoidectomy ?Z90.89 - Acquired absence of other organs (ICD-10) History of appendectomy ?Z90.49 - Acquired absence of other specified parts of digestive tract (ICD-10) History of hemilaminectomy ?Z98.890 - Other specified postprocedural states (ICD-10) History of cholecystectomy ?Z90.49 - Acquired absence of other specified parts of digestive tract (ICD-10) Previous section ?Z98.891 - History of uterine scar from previous surgery (ICD-10) Social History Smoking status: Former smoker Little interest or pleasure in doing things: several days Feeling down, depressed, or hopeless: several days Meds Home Medications and Allergies Home Medications ?Medication ?Instructions ?Recorded ?Confirmed ?Type amlodipine 10 mg tablet (Norvasc) 10 mg PO DAILY 09/10/22 08/25/24 History biotin 1 mg capsule 5 mg PO DAILY 09/10/22 08/25/24 History cariprazine 4.5 mg capsule 4.5 mg PO Q24H 09/10/22 08/25/24 History (Vraylar) cetirizine 10 mg tablet (24Hour 10 mg PO DAILY PRN allergy symptoms 09/10/22 08/25/24 History Allergy) duloxetine 60 mg capsule,delayed 60 mg PO BID 09/10/22 08/25/24 History release ferrous sulfate 325 mg (65 mg 325 mg PO BID 09/10/22 08/25/24 History iron) tablet (FeroSul) losartan 50 mg tablet (Cozaar) 100 mg PO DAILY 09/10/22 08/25/24 History magnesium 200 mg tablet 400 mg PO QDAY 09/10/22 08/25/24 History melatonin 12 mg tablet 12 mg PO .HS PRN sleep 09/10/22 08/25/24 History omeprazole 20 mg capsule,delayed 20 mg PO QDAY 09/10/22 08/25/24 History release ropinirole 4 mg tablet 4 mg PO QDAY 09/10/22 08/25/24 History trazodone 150 mg tablet 150 mg PO .HS 09/10/22 08/25/24 History tizanidine 2 mg tablet 2 mg PO TID PRN muscle spasticity 10/01/23 08/25/24 Rx #90 tabs fluticasone propionate 50 1 spray intranasal DAILY PRN 10/20/23 08/25/24 History mcg/actuation nasal allergy symptoms spray,suspension (Flonase Allergy Relief) spironolactone 50 mg tablet 50 mg PO DAILY 10/20/23 08/25/24 History gabapentin 300 mg capsule 300 mg PO BID 11/03/23 08/25/24 History calcium citrate 200 mg PO QID 11/04/23 08/25/24 History carvedilol 12.5 mg tablet 12.5 mg PO Q12H 11/04/23 08/25/24 History multivitamin 1 tab PO DAILY 11/04/23 08/25/24 History fexofenadine 60 mg tablet (Naida 60 mg PO BID 08/08/24 08/08/24 History Allergy) Allergies Allergy/AdvReac Type Severity Reaction Status Date / Time levetiracetam (From Keppra) Allergy Severe Unknown Verified 08/25/24 04:12 adhesive Allergy Intermediate Blister Verified 08/25/24 04:12 Penicillins Allergy Intermediate Unknown Verified 08/25/24 04:12 tetracycline Allergy Intermediate Unknown Verified 08/25/24 04:12 eszopiclone (From Lunesta) Allergy Unknown Verified 08/25/24 04:12 milnacipran (From Savella) AdvReac Intermediate Agitated Verified 08/25/24 04:12 prochlorperazine (From AdvReac Intermediate Agitated Verified 08/25/24 04:12 Compazine) Exam Constitutional Documenting provider has reviewed patient's vital signs: yes Common normals: no apparent distress, oriented x3, healthy appearing, alert and well nourished General appearance: cooperative HENMT Common normals: normocephalic, hearing grossly normal bilaterally and moist oral mucous membranes Head and scalp: normocephalic Eye Common normals: PERRL Pupil: PERRL Neck & C-Spine Common normals: full ROM General: normal visual inspection Chest Common normals: inspection of chest normal Respiratory Common normals: normal respiratory effort, no retractions and no use of accessory muscles Back & Pelvis Thoracic spine/upper back: ROM limited Lumbar spine/lower back: straight leg raise negative bilaterally; no pain with ROM, no lumbar spinal tenderness, no paraspinal muscle tenderness and no paraspinal muscle spasm Sacroiliac joints: SI joint(s) abnormal Other: left sij positive autumn(patricks), gaenslens, thigh thrust, compression test strength 5/5 in BLE sensation intact BLE Extremity Right upper extremity: shoulder joint Other: left shoulder full ROM with no pain, negative scratch test, posterior liftoff, empty can test and crossbody adduction Neuro Common normals: oriented x3, CN's II-XII intact bilaterally, moves all extremities, no focal motor deficits, no sensory deficits noted and deep tendon reflexes 2+ bilaterally Sensorium/orientation: alert Motor exam: strength 5/5 throughout and no movement abnormalities noted Psych Common normals: mental status grossly normal, thought process normal, cooperative, affect normal, speech normal and activity/motor behavior normal Speech: normal speech Thought process: normal thought process Results Additional Findings Additional findings: If on a controlled substance or opioids, I have checked an [place] report on this patient and there are no aberrancies noted in the prescribing history.??If on a controlled substance or opioid a drug screen was completed and reviewed within the last year, and if there has not been a drug screen completed we ordered one today to monitor higher risk, state monitored pain medication use. As part of providing excellent, safe, comprehensive care, the following was completed at our patient's visit: 1. A medication reconciliation and review to ensure accurate knowledge of current/active medications, including asking our patients to inform us about any [id number] medications or herbal remedies/nutritional supplements/alternative remedies. 2. A review to specifically ensure our patients have had annual screening for screening for depression, screening for tobacco use, and screening for unhealthy alcohol use. For concerning screenings had a discussion with the patient, provided patient education, and recommended follow-up with primary care provider when appropriate. If patient noted with a risk of falling, they received education on strength, gait, and balance training to prevent future risk of falling. Portions of this note may have been carried over from the previous visit and updated as appropriate. Please note this office utilizes paper charting in addition to the electronic medical record. A list of current medications, vitals, and PMH is available there as the clinical staff outside of myself do not have access to [employer] charting during the clinic day operations. As part of providing quality comprehensive care the current medications, vitals, and PMH were reviewed in the paper chart. Assessment and Plan Assessment and Plan (1) Sacroiliitis: Assessment and Plan: The patient has had over 3 months of moderate to severe back pain with functional impairment and inadequate response to conservative care including NSAIDS (unless there are contraindication such as concurrent blood thinners), multiple oral or topical pain medications, and home exercise program/physical therapy.? Patient has completed >6 weeks of guided home exercise program and/or formal physical therapy program without relief of their symptoms.? I have reviewed the imaging of the lumbar spine and no red flags were identified.? The imaging reveals radiographic findings consistent with lumbar spondylosis The Oswestry Disability Index was completed, and the patient scored a 42%.? The patient noted the following:?? moderate to severe pain, pain impacting ADLs, pain impacting ability to sit and walk for longer than 15 minutes, pain interrupting sleep social life and travel We discussed the risks and benefits of the procedure with the patient. ?The procedure will be completed with fluoroscopic guidance.? (2) Chronic right shoulder pain: Assessment and Plan: 08/08/24 right suprascapular and axillary RFA >90% improvement ongoing (3) Lumbar spondylosis: Plan left SIJ injection under fluoroscopy continue medication management through PCP and other specialisits continue HEP as tolerated f/u 2 weeks after injection
== END 2024-09-08 09:43 | disposition home or self-care (01) ==
LOC: PM 09:42
PROVIDERS: PCP Nurse Practitioner; Visit Provider Nurse Practitioner
DX: M46.1 Sacroiliitis, not elsewhere classified (principal); M25.511 Pain in right shoulder; M47.816 Spondylosis without myelopathy or radiculopathy, lumbar region
CPT/HCPCS: G0463

== ENCOUNTER 2024-09-19 08:02 | Day surgery (SDC) | payer MEDICARE, SELFPAY ==
[2024-09-19 08:11] VITALS: BP 145/92; PULSE 77; TEMP 36.6; O2SAT 99
--- OUTSIDE RECORDS SUMMARY | 2024-09-19 08:24 | XMS_ITS | CCD ---
Author Organization [facility] Care Team Providers Care Senior Merchandiser Name Role Phone ROSIERAHEIM, SUKI Admitting Unavailable EBRAHEIM, SUKI Attending Unavailable AICHHOLZ, ADELAIDA Referring Unavailable AICHHOLZ, ADELAIDA Primary Care Unavailable MD Procedure Practitioner Unavailab SUKI Jacob Surgeon Unavailable MD Procedure Practitioner Unavailab CHAPARRITA Goncalves Surgeon Unavailable BRIDGETTE MACEDO Admitting Unavailable BRIDGETTE MACEDO Attending Unavailable AICHHOLZ, RAMP ATTENDANT ADLEAIDA Primary Care Unavailable NIXON ., DR FINA Iverson Admitting Unavailable NIXON ., DR FINA Iverson Attending Unavailable AICHHOLZ, RAMP ATTENDANT ADELAIDA Primary Care Unavailable MCDANIEL ., ZELDA Consulting Unavailable LAKSHMIPATHY ., NARENDRANATH Consulting Paula vailable LAKSHMIPATHY ., NARENDRANATH Admitting Paula vailable LAKSHMIPATHY ., NARENDRANATH Attending Paula vailable AICHHOLZ, RAMP ATTENDANT ADELAIDA Primary Care Unavailable LAKSHMIPATHY ., NARENDRANATH Consulting Paula vailable AICHHOLZ, RAMP ATTENDANT ADELAIDA Primary Care Unavailable MARKER ., DR CHAUDHRY Admitting Unavailable MARKER ., DR CHAUDHRY Attending Unavailable MARKER ., DR CHAUDHRY Consulting Unavailable AICHHOLZ, RAMP ATTENDANT ADELAIDA Admitting Unavailable AICHHOLZ, RAMP ATTENDANT ADELAIDA Attending Unavailable AICHHOLZ, RAMP ATTENDANT ADELAIDA Primary Care Unavailable NIXON ., DR FINA Iverson Admitting Unavailable NIXON ., DR FINA Iverson Attending Unavailable AICHHOLZ, RAMP ATTENDANT ADELAIDA Primary Care Unavailable MCDANIEL ., ZELDA Consulting Unavailable NIXON ., DR FINA Iverson Admitting Unavailable NIXON ., DR FINA Iverson Attending Unavailable AICHHOLZ, RAMP ATTENDANT ADELAIDA Primary Care Unavailable MCDANIEL ., ZELDA Consulting Unavailable AICHHOLZ, RAMP ATTENDANT ADELAIDA Admitting Unavailable AICHHOLZ, RAMP ATTENDANT ADELAIDA Attending Unavailable AICHHOLZ, RAMP ATTENDANT ADELAIDA Primary Care Unavailable AICHHOLZ, RAMP ATTENDANT ADELAIDA Consulting Unavailable AICHHOLZ, RAMP ATTENDANT ADELAIDA Admitting Unavailable AICHHOLZ, RAMP ATTENDANT ADELAIDA Attending Unavailable AICHOLZ, RAMP ATTENDANT ADELAIDA Primary Care Unavailable AICHHOLZ, RAMP ATTENDANT ADELAIDA Consulting Unavailable MISC, DR COTE Admitting Unavailable MISC, DR COTE Attending Unavailable AICHOLZ, RAMP ATTENDANT ADELAIDA Primary Care Unavailable AICHHOLZ, RAMP ATTENDANT ADELAIDA Consulting Unavailable PRITESHC, DR COTE Consulting Unavailable STARR, DR KINGSLEY Atkins Consulting Unavailable NIXON ., DR FINA Iverson Admitting Unavailable NIXON ., DR FINA Iverson Attending Unavailable AICHOLZ, [facility] ADELAIDA Primary Care Unavailable MCDANIEL ., ZELDA Consulting Unavailable NIXON ., DR FINA Iverson Admitting Unavailable NIXON ., DR FINA Iverson Attending Unavailable [facility] Unavailable NIXON ., DR FINA Iverson Consulting Unavailable OMID LAY Consulting Unavailable NIXON ., DR FINA Iverson Admitting Unavailable NIXON ., DR FINA Iverson Attending [facility]available [facility] ADELAIDA Primary Care Unavailable MCDANIEL ., ZELDA Consulting Unavailable AICHOLZ, [facility] ADELAIDA Primary Care Unavailable HALKER ., ARIAN Admitting Unavailable HALKER ., ARIAN Attending Unavailable LAKSHMIPATHY ., NARENDRANATH Consulting Paula vailable HALKER ., ARIAN Consulting Unavailable LAKSHMIPATHY ., NARENDRANATH Admitting Paula vailable LAKSHMIPATHY ., NARENDRANATH Attending Paula vailable [facility], [facility] ADELAIDA Primary Care Unavailable LAKSHMIPATHY ., NARENDRANATH Consulting Paula vailable AICHOLZ, RAMP ATTENDANT ADELAIDA Admitting Unavailable AICHHOLZ, RAMP ATTENDANT ADELAIDA Attending Unavailable AICHOLZ, RAMP ATTENDANT ADELAIDA Primary Care Unavailable AICHHOLZ, RAMP ATTENDANT ADELAIDA Consulting Unavailable BRIDGETTE MACEDO Admitting Unavailable BRIDGETTE MACEDO Attending Unavailable AICHHOLZ, RAMP ATTENDANT ADELAIDA Primary Care Unavailable DR KINGSLEY CLEMENTS Consulting Unavailable BRIDGETTE MACEDO Consulting Unavailable GILMER NEVES Admitting Unavailable GILMER NEVES Attending Unavailable PURA, GILMER Consulting Unavailable AICHOLZ, RAMP ATTENDANT ADELAIDA Primary Care Unavailable AICHHOLZ, RAMP ATTENDANT ADELAIDA Primary Care Unavailable DR WILLI RINALDI Admitting Unavailable DEEJAY, DR WILLI Atkins Attending Unavailable DR WILLI RINALDI Consulting Unavailable AICHHOLZ, RAMP ATTENDANT ADELAIDA Primary Care Unavailable ALMAZ ., DANNY Admitting Unavailable ALMAZ ., DANNY Attending Unavailable DR KINGSLEY CLEMENTS Consulting Unavailable ALMAZ ., DANNY Consulting Unavailable LAKSHMIPATHY ., NARENDRANATH Admitting Paula vailable LAKSHMIPATHY ., NARENDRANATH Attending Paula vailable AICHHOLZ, RAMP ATTENDANT ADELAIDA Primary Care Unavailable AICHHOLZ, RAMP ATTENDANT ADELAIDA Admitting Unavailable AICHHOLZ, RAMP ATTENDANT ADELAIDA Attending Unavailable AICHHOLZ, RAMP ATTENDANT ADELAIDA Primary Care Unavailable AICHHOLZ, RAMP ATTENDANT ADELAIDA Admitting Unavailable AICHHOLZ, RAMP ATTENDANT ADELAIDA Attending Unavailable AICHHOLZ, RAMP ATTENDANT ADELAIDA Primary Care Unavailable AICHHOLZ, RAMP ATTENDANT ADELAIDA Consulting Unavailable DR KINGSLEY CLEMENTS Consulting Unavailable HALKER ., ARIAN Admitting Unavailable HALKER ., ARIAN Attending Unavailable AICHHOLZ, RAMP ATTENDANT ADELAIDA Primary Care Unavailable Aichholz, Adelaida J Primary Care Provider [phone] MD Gaudencio Monk Admit Provider MD Gaudencio Monk Attending Provider JOHANN Vieira Other Provider Unavailable JOHANN Pina Other Provider Unavailable JOHANN Hurtado Other Provider Unavailable JOHANN Crooks Other Provider Unavailable JOHANN Mejias Other Provider Unavailable JOHANN Kim Other Provider Unavailable MD Walker Pringle Other Provider ROSS Marsh Other Provider [phone] DO Jessica Murillo Other Provider [phone] MD Obdulio Bragg Other Provider DO Joon Cristina Other Provider MD Torin Robert Other Provider [phone] MD Dawn Barrera Other Provider Karlene ANP-BC Mari Other Provider MD Sofi Almanzar Other Provider [phone] MD Sharad Gallegos Other Provider MD [...] Provider MD Jace Graham Attending Provider Sheyla SCALEMAKER, Adelaida Unavailable José Luis Roberts MD Primary Care Provider Aichholz SCALEMAKER, Adelaida Unavailable Daniela GRAHAM, Miriam Unavailable Moises CAMPBELL, Diana Unavailable Unavailable Unallocated , Familias Provider Primary Care Yadirai kellee Aichbob SCALEMAKER, Adelaida Unavailable José Luis Roberts MD Primary Care Provider Bong Rosado MA Unavailable Unavailable Aida CAMPBELL, Mathew Unavailable Unavailable Juany Yi Unavailable Jamee JAIMES, Syeda King Attending Unavailable Jamee JAIMES, Andrius King Attending Unavailable Jamee JAIMES, Andrius King Attending Unavailable Jamee JAIMES, Syeda King Attending Unavailable SHEYLA, ADELAIDA Attending Unavailable JUANY LEGGETT Attending Unavailable YINGHHOLNena, ADELAIDA Attending Unavailable JUANY LEGGETT Attending Unavailable AICHHOLZ, ADELAIDA Attending Unavailable AICHHOLZ, ADELAIDA Attending Unavailable AICHHOLZ, ADELAIDA Attending Unavailable SONAM BROWN Attending Unavailable AICHHOLNena, ADELAIDA Attending Unavailable SONAM BROWN Attending Unavailable GILLMOJUANY Atkins Attending Unavailable AICHHOLZ, ADELAIDA Attending Unavailable AICHHOLZ, ADELAIDA Attending Unavailable AICHHOLZ, ADELAIDA Attending Unavailable JUANY LEGGETT Attending Unavailable RACHEL MITCHELL Attending Unavailable DAVID FOSTER Attending Unavailable JUANY LEGGETT Referring Unavailable YINGHHOLNena, ADELAIDA Attending Unavailable RACHEL MITCHELL Referring Unavailable [...] Consulting Unavailable Inna Melendez Consulting Unavailable Rocio uDncan Consulting Unavailable Chuck Hinkle Consulting Unavailable Allergies Allergy Classification Reported Allergen(s) Allergy Type Date of Onset Reaction(s) Facility (7 sources) Adhesive Tape; Translations: [ADHESIVE TAPE] Propensity to adverse reactions (disorder) 04-06-19 14 rash [facility] Repository (3 sources) levETIRAcetam; Translations: [KEPPRA] Drug Allergy 07-02-19 19 [facility] Repository (3 sources) milnacipran; Translations: [SAVELLA] Drug Allergy 03-14-20 13 [facility] Repository (1 source) Penicillin; Translations: [PENICILLIN] Drug Allergy 01-16-20 18 [facility] Repository (5 sources) Prochlorperazin e; Translations: [COMPAZINE] Drug Allergy 03-14-20 13 agitation [facility] Repository (20 sources) Tetracycline; Translations: [TETRACYCLINE] Drug Allergy 04-06-19 13 Hives, Unknown [facility] Rep[facility] (4 sources) Penicillins Drug allergy (disorder) 04-06-19 13 Unknown Reaction [facility] Repository (20 sources) levETIRAcetam; Translations: [levetiracetam] Drug Allergy 12-13-19 22 Hallucinations , Other [facility] (20 sources) milnacipran; Translations: [milnacipran] Drug Allergy 12-13-19 22 hives, Hallucinations , Other, Unknown [facility] (20 sources) Prochlorperazin e; Translations: [prochlorperazi ne] Drug Allergy 12-13-19 22 Unknown, [facility] (2 sources) Penicillin G Drug Allergy as a child Superprotonic Other (2 sources) Tetracaine Drug Allergy Unknown Superprotonic Other (20 sources) Penicillins Drug Intolerance 12-13-19 22 Anaphylaxis [facility] (20 sources) Other Propensity to adverse reactions 12-13-19 22 Other [facility] (20 sources) Wound Dressing Adhesive Drug Allergy 09-20-19 23 Rash, Unknown [facility] (20 sources) Eszopiclone Drug Allergy 09-21-19 24 Hallucinations , Anaphylaxis [facility] (1 source) Penicillin Drug Allergy 03-02-20 [facility] (1 source) Penicillins Drug allergy (disorder) 03-02-20 [facility] (1 source) Tetracaine Drug Allergy 03-02-20 [facility] Repository Medications Current Medications Medication [...] tablet (4 sources) Macrolide Antimicrobial Start: 06-15-19 azithromycin (Zithromax) 250 MG tablet Indications: URI, [...] Start: 09-21-2023 take 1 capsule by mo [facility] once daily Cariprazine HCl (Vraylar) 4.5 MG capsule Take 4.5 mg by mouth Daily 09/21/2023 Active Start: 11-17-2022 take 1 capsule by [facility] once daily Cariprazine (Vraylar) 4.5 [...] (BARIATRIC MULTIVITAMINS/IRON PO) Bariatric Multivitamins/Iron 0 Active Ceonwhbfdxko-Zqd-Fevy-Fa-Vit K (Bariatric Multivitamins) 45 mg iron- 800 mcg-120 mcg Capsule (2 sources) Start: 11-17-2022 take 1 capsule by mouth once daily Cniricriuway-Foa-Ubdz-Fa-Vit K (Bariatric Multivitamins) 45 mg iron- 800 mcg-120 mcg Capsule Active 1 CAP PO Daily November 16, 2022 11:00pm Start: 11-17-2022 take 1 capsule by mo [facility] once daily Mdejqaiotixg-Alv-Vxua-Fa-Vit K (Bariatri c Multivitamins) 45 mg iron- 800 mcg-120 mcg Capsule Active 1 CAP PO Daily November 17, 2022 12:00am nystatin [id number] unt/ml topical cream (20 sources) Polyene Antifungal Start: 03-07-2024 nystatin (M ycostatin) cream 03/07/2024 Active nystatin (Mycost atin) 281041 UNIT/GM powder Apply 1 application topically in [...] 3a (HCC)] Onset: 05-12-19 25 05-12-2024 Chronic Chronic obstructive pulmonary disease and bronchiectasis (9 sources) Bronchitis; Translations: [Bronchitis, not specified as acute or chronic] Onset: 07-28-19 25 07-27-2024 Episodic Conduction disorders (20 sources) EKG: right [...] 05-18-2023 Episodic Other aftercare (1 source) 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 Complete Blood Count Auto Di ffon 03-05-2024 Basophils (Bld) [#/Vol] 0.0 10*3/uL Normal 0.0-0.2 [facility] Comment on above: Result Comment: PERF ORMED BY: [place] [address] PATHOLOGIST DANCE ARTIST ADIEL AGUSTIN M.D. Performed By: #### C BC, MG, CMP #### [address] Basophils/100 WBC (Bld) 0.5 % Normal . [facility] Comment on above: Performed By: #### C BC, MG, CMP #### [facility] [address] [place] [address] [place] Eosinophils (Bld) [#/Vol] 0.2 10*3/uL Normal 0.0-0.45 [facility] Comment on above: Performed By: #### C BC, MG, CMP #### [place] [address] [place] [address] [place] Eosinophils/100 WBC (Bld) 2.2 % Normal . [facility] Comment on above: Performed By: #### C BC, MG, CMP #### [address] Erythrocyte distribution width (RBC) [Ratio] 14.5 % Normal 11.9-15.3 [facility] Comment on above: Performed By: #### C BC, MG, CMP #### [address] Hematocrit (Bld) [Volume fraction] 43.0 % Normal 34.0-46.4 [facility] Comment on above: Performed By: #### C BC, MG, CMP #### [address] Hemoglobin (Bld) [Mass/Vol] 14.3 g/dL Normal 11.8-15.4 [facility] Comment on above: Performed By: #### C BC, MG, CMP #### [address] Lymphocytes (Bld) [#/Vol] 1.8 10*3/uL Normal 1.00-4.8 [facility] Comment on above: Performed By: #### C BC, MG, CMP #### [address] Lymphocytes/100 WBC (Bld) 18.9 % Normal . [facility] Comment on above: Performed By: #### C BC, MG, CMP #### [address] MCH (RBC) [Entitic mass] 29.0 pg Normal 24.7-34.3 [facility] Comment on above: Performed By: #### C BC, MG, CMP #### [address] MCV (RBC) [Entitic vol] 87.0 fL Normal 80-100 [facility] Comment on above: Performed By: #### C BC, MG, CMP #### [address] Mean Corpuscular HGB Conc 33.4 g/dL Normal 32.0-35.0 [facility] Comment on above: Performed By: #### C BC, MG, CMP #### [place] [address] [place] [address] [place] Monocytes (Bld) [#/Vol] 0.5 10*3/uL Normal 0.0-0.8 [facility] Comment on above: Performed By: #### C BC, MG, CMP #### [place] [address] [place] [id number] [place] Monocytes/100 WBC (Bld) 5.5 % Normal . [facility] Comment on above: Performed By: #### C BC, MG, CMP #### [place] [address] [place] [address] [place] Neutrophils (Bld) [#/Vol] 7.0 10*3/uL Normal 1.8-7.7 [facility] Comment on above: Performed By: #### C BC, MG, CMP #### [place] [address] [place] [address] [place] Neutrophils/100 WBC (Bld) 72.9 % Normal . [facility] Comment on above: Performed By: #### C BC, MG, CMP #### [place] [address] [place] [address] [place] NRBC% 0.0 /100{WBC} Normal 0-0.5 [facility] Comment on above: Performed By: #### C BC, MG, CMP #### [place] [address] [place] [address] [place] Platelet mean volume (Bld) [Entitic vol] 8.9 fL Normal 6.3-10.7 [facility] Comment on above: Performed By: #### C BC, MG, CMP #### [place] [address] [place] [address] [place] Platelets (Bld) [#/Vol] 289 10*3/uL Normal 150-450 [facility] Comment on above: Performed By: #### C BC, MG, CMP #### [facility] [address] [place] [address] [place] RBC (Bld) [#/Vol] 4.94 10*6/uL Normal 3.60-5.[address] [facility] Comment on above: Performed By: #### C BC, MG, CMP #### [address] WBC (Bld) [#/Vol] 9.6 10*3/uL Normal 3.8-11.6 [facility] Comment on above: Performed By: #### C BC, MG, CMP #### [address] Comprehensive Metabolic Pane [place] 03-05-2024 Albumin [Mass/Vol] 4.4 g/dL Normal 3.5-5.7 [facility] Comment on above: Performed By: #### C BC, MG, CMP #### [address] Albumin/Globulin [Mass ratio] 1.3 {ratio} Normal [facility] Comment on above: Performed By: #### C BC, MG, CMP #### [address] ALP [Catalytic activity/Vol] 79 U/L Normal 34-104 [facility] Comment on above: Performed By: #### C BC, MG, CMP #### [address] ALT [Catalytic activity/Vol] 23 U/L Normal 7-52 [facility] Comment on above: Performed By: #### C BC, MG, CMP #### [address] Anion gap [Moles/Vol] 15.4 mmol/L High 6.0-15.0 [facility] Comment on above: Performed By: #### C BC, MG, CMP #### [address] AST [Catalytic activity/Vol] 36 U/L Normal 13-39 [facility] Comment on above: Performed By: #### C BC, MG, CMP #### [address] Bilirubin [Mass/Vol] 0.4 mg/dL Normal 0.3-1.0 [facility] Comment on above: Performed By: #### C BC, MG, CMP #### [place] [address] Calcium [Mass/Vol] 9.5 mg/dL Normal 8.6-10.3 [facility] Comment on above: Performed By: #### C BC, MG, CMP #### [place] [address] [place] [address] [place] Chloride [Moles/Vol] 106 mmol/L Normal 98-107 [facility] Comment on above: Performed By: #### C BC, MG, CMP #### [place] [address] CO2 [Moles/Vol] 23.1 mmol/L Normal 21.0-31.0 [facility] Comment on above: Performed By: #### C BC, MG, CMP #### [place] [address] [place] [address] [place] Creatinine [Mass/Vol] 0.96 mg/dL Normal 0.60-1.20 [facility] Comment on above: Performed By: #### C BC, MG, CMP #### [place] [address] [place] [address] [place] Creatinine Clr Calc Pharmacy 84.51 Normal [facility] Comment on above: Performed By: #### C BC, MG, CMP #### [place] [address] [place] [address] [place] GFR/1.73 sq M.predicted MDRD (S/P/Bld) [Vol rate/Area] mL/min/{1.73_m2} Normal [facility] Comment on above: Performed By: #### C BC, MG, CMP #### [place] [address] [place] [address] [place] Globulin (S) [Mass/Vol] 3.3 g/dL Normal [facility] Comment on above: Performed By: #### C BC, MG, CMP #### [place] [address] [place] [address] [place] Glucose [Mass/Vol] 133 mg/dL High 70-100 [facility] Comment on above: Result Comment: [place] Glucose Reference Range is dependent on time and content of last meal. Glucose of more than 200 mg/dL in a nonstressed, ambulatory subject supports the diagnosis of Diabetes Mellitus. ADA recommended reference range Performed By: #### C BC, MG, CMP #### [address] Potassium [Moles/Vol] 3.5 mmol/L Normal 3.5-5.1 [facility] Comment on above: Performed By: #### C BC, MG, CMP #### [address] Protein [Mass/Vol] 7.7 g/dL Normal 6.4-8.9 [facility] Comment on above: Performed By: #### C BC, MG, CMP #### [address] Sodium [Moles/Vol] 141 mmol/L Normal 136-145 [facility] Comment on above: Performed By: #### C BC, MG, CMP #### [place] [address] [place] Urea nitrogen [Mass/Vol] 18 mg/dL Normal 7-25 [facility] Comment on above: Performed By: #### C BC, MG, CMP #### [address] Magnesiumon 03-05-2024 Magnesium [Mass/Vol] 2.0 mg/dL Normal 1.9-2.7 [facility] Comment on above: Result Comment: PERF ORMED BY: [place] [address] PATHOLOGIST DANCE ARTIST ADIEL AGUSTIN M.D. Performed By: #### C BC, MG, CMP #### [address] Complete Blood Count Auto Di ffon 03-04-2024 Basophils (Bld) [#/Vol] 0.1 10*3/uL Normal 0.0-0.2 [facility] Comment on above: Result Comment: PERF ORMED BY: [place] [address] PATHOLOGIST DANCE ARTIST ADIEL AGUSTIN M.D. Performed By: #### C MP, MG, CBC #### [address] Basophils/100 WBC (Bld) 0.6 % Normal . [facility] Comment on above: Performed By: #### C MP, MG, CBC #### [address] Eosinophils (Bld) [#/Vol] 0.2 10*3/uL Normal 0.0-0.45 [facility] Comment on above: Performed By: #### C MP, MG, CBC #### [address] Eosinophils/100 WBC (Bld) 1.9 % Normal . [facility] Comment on above: Performed By: #### C MP, MG, CBC #### [address] Erythrocyte distribution width (RBC) [Ratio] 14.6 % Normal 11.9-15.3 [facility] Comment on above: Performed By: #### C MP, MG, CBC #### [address] Hematocrit (Bld) [Volume fraction] 43.5 % Normal 34.0-46.4 [facility] Comment on above: Performed By: #### C MP, MG, CBC #### [address] Hemoglobin (Bld) [Mass/Vol] 14.4 g/dL Normal 11.8-15.4 [facility] Comment on above: Performed By: #### C MP, MG, CBC #### [address] Lymphocytes (Bld) [#/Vol] 1.8 10*3/uL Normal 1.00-4.8 [facility] Comment on above: Performed By: #### C MP, MG, CBC #### [address] Lymphocytes/100 WBC (Bld) 18.0 % Normal . [facility] Comment on above: Performed By: #### C MP, MG, CBC #### [address] MCH (RBC) [Entitic mass] 28.8 pg Normal 24.7-34.3 [facility] Comment on above: Performed By: #### C MP, MG, CBC #### [address] MCV (RBC) [Entitic vol] 87.0 fL Normal 80-100 [facility] Comment on above: Performed By: #### C MP, MG, CBC #### [address] Mean Corpuscular HGB Conc 33.2 g/dL Normal 32.0-35.0 [facility] Comment on above: Performed By: #### C MP, MG, CBC #### [place] [address] [place] Monocytes (Bld) [#/Vol] 0.8 10*3/uL Normal 0.0-0.8 [facility] Comment on above: Performed By: #### C MP, MG, CBC #### [place] [address] [place] Monocytes/100 WBC (Bld) 8.2 % Normal . [facility] Comment on above: Performed By: #### C MP, MG, CBC #### [place] [address] [place] Neutrophils (Bld) [#/Vol] 7.3 10*3/uL Normal 1.8-7.7 [facility] Comment on above: Performed By: #### C MP, MG, CBC #### [address] Neutrophils/100 WBC (Bld) 71.3 % Normal . [facility] Comment on above: Performed By: #### C MP, MG, CBC #### [address] NRBC% 0.1 /100{WBC} Normal 0-0.5 [facility] Comment on above: Performed By: #### C MP, MG, CBC #### [address] Platelet mean volume (Bld) [Entitic vol] 8.8 fL Normal 6.3-10.7 [facility] Comment on above: Performed By: #### C MP, MG, CBC #### [address] Platelets (Bld) [#/Vol] 334 10*3/uL Normal 150-450 [facility] Comment on above: Performed By: #### C MP, MG, CBC #### [address] RBC (Bld) [#/Vol] 5.01 10*6/uL High 3.60-5.[address] [facility] Comment on above: Performed By: #### C MP, MG, CBC #### [address] WBC (Bld) [#/Vol] 10.3 10*3/uL Normal 3.8-11.[address] [facility] Comment on above: Performed By: #### C MP, MG, CBC #### [address] Comprehensive Metabolic Pane [place] 03-04-2024 Albumin [Mass/Vol] 4.5 g/dL Normal 3.5-5.7 [facility] Comment on above: Performed By: #### C MP, MG, CBC #### [address] Albumin/Globulin [Mass ratio] 1.4 {ratio} Normal [facility] Comment on above: Performed By: #### C MP, MG, CBC #### [address] ALP [Catalytic activity/Vol] 79 U/L Normal 34-104 [facility] Comment on above: Performed By: #### C MP, MG, CBC #### [place] [address] ALT [Catalytic activity/Vol] 19 U/L Normal 7-52 [facility] Comment on above: Performed By: #### C MP, MG, CBC #### [facility] [address] Anion gap [Moles/Vol] 11.4 mmol/L Normal 6.0-15.0 [facility] Comment on above: Performed By: #### C MP, MG, CBC #### [place] [address] AST [Catalytic activity/Vol] 37 U/L Normal 13-39 [facility] Comment on above: Performed By: #### C MP, MG, CBC #### [facility] [address] [place] [address] Bilirubin [Mass/Vol] 0.5 mg/dL Normal 0.3-1.0 [facility] Comment on above: Performed By: #### C MP, MG, CBC #### [facility] [address] [place] [address] Calcium [Mass/Vol] 9.6 mg/dL Normal 8.6-10.3 [facility] Comment on above: Performed By: #### C MP, MG, CBC #### [facility] [address] [place] [address] [place] Chloride [Moles/Vol] 107 mmol/L Normal 98-107 [facility] Comment on above: Performed By: #### C MP, MG, CBC #### [facility] [address] [place] [address] [place] CO2 [Moles/Vol] 27.4 mmol/L Normal 21.0-31.0 [facility] Comment on above: Performed By: #### C MP, MG, CBC #### [facility] [address] [place] [address] [place] Creatinine [Mass/Vol] 0.91 mg/dL Normal 0.60-1.20 [facility] Comment on above: Performed By: #### C MP, MG, CBC #### [address] Creatinine Clr Calc Pharmacy 90.12 Normal [facility] Comment on above: Performed By: #### C MP, MG, CBC #### [place] [address] [place] GFR/1.73 sq M.predicted MDRD (S/P/Bld) [Vol rate/Area] mL/min/{1.73_m2} Normal [facility] Comment on above: Performed By: #### C MP, MG, CBC #### [address] Globulin (S) [Mass/Vol] 3.2 g/dL Normal [facility] Comment on above: Performed By: #### C MP, MG, CBC #### [address] Glucose [Mass/Vol] 100 mg/dL Normal 70-100 [facility] Comment on above: Result Comment: [place] Glucose Reference Range is dependent on time and content of last meal. Glucose of more than 200 mg/dL in a nonstressed, ambulatory subject supports the diagnosis of Diabetes Mellitus. ADA recommended reference range Performed By: #### C MP, MG, CBC #### [place] [address] [place] Potassium [Moles/Vol] 3.8 mmol/L Normal 3.5-5.1 [facility] Comment on above: Performed By: #### C MP, MG, CBC #### [place] [address] [place] Protein [Mass/Vol] 7.7 g/dL Normal 6.4-8.9 [facility] Comment on above: Performed By: #### C MP, MG, CBC #### [address] Sodium [Moles/Vol] 142 mmol/L Normal 136-145 [facility] Comment on above: Performed By: #### C MP, MG, CBC #### [place] [address] Urea nitrogen [Mass/Vol] 15 mg/dL Normal 7-25 [facility] Comment on above: Performed By: #### C MP, MG, CBC #### [facility] [address] MR head/brain wo/w conon MR head/brain wo/w con [facility] [place] [address] [place] [address] MRI Report Signed Patient: Michelle Be MR#: [id number] : 1960 Acct:[id number] Age/Sex: 63 / F ADM Date: 03/03/24 Loc: Room: [address] [place] [address] Type: ADM IN Attending Dr: Delta Gan MD Copies to: DO Delta Damon MD Ordering Provider: Dennis Stele DO Date of Service: 03/04/24 MR/MR head/brain [...] Willi Guadalupe M.D.03/04/2024 2:32 PM Dictation Location: [place] [address] Transcribed By: [facility] 03/04/24 1432 Dictated By: Willi Guadalupe II, MD 03/04/24 1424 Signed By: 03/04/24 1432 Normal [facility] Magnesiumon 03-04-2024 Magnesium [Mass/Vol] 2.0 mg/dL Normal 1.9-2.7 [facility] Comment on above: Result Comment: PERF ORMED BY: [place] [address] PATHOLOGIST DANCE ARTIST ADIEL AGUSTIN M.D. Performed By: #### C MP, MG, CBC #### [address] Complete Blood Count Auto Di ffon 03-03-2024 Basophils (Bld) [#/Vol] 0.1 10*3/uL Normal 0.0-0.2 [facility] Comment on above: Order Comment: WEN BELLA,1606 Result Comment: PERF ORMED BY: [place] [address] PATHOLOGIST DANCE ARTIST ADIEL AGUSTIN M.D. Performed By: #### C BC, CMP #### [address] Basophils/100 WBC (Bld) 0.6 % Normal . [facility] Comment on above: Order Comment: WEN BELLA,1606 Performed By: #### C BC, CMP #### [address] Eosinophils (Bld) [#/Vol] 0.1 10*3/uL Normal 0.0-0.45 [facility] Comment on above: Order Comment: WEN BELLA,1606 Performed By: #### C BC, CMP #### [place] [address] [place] [id number] [place] Eosinophils/100 WBC (Bld) 1.0 % Normal . [facility] Comment on above: Order Comment: REY T O COME TRY,KAH,160 Performed By: #### C BC, CMP #### [place] [address] Erythrocyte distribution width (RBC) [Ratio] 14.6 % Normal 11.9-15.3 [facility] Comment on above: Order Comment: RIN T O COME TRY,KAH,160 Performed By: #### C BC, CMP #### [address] Hematocrit (Bld) [Volume fraction] 42.9 % Normal 34.0-46.4 [facility] Comment on above: Order Comment: RIN T O COME TRY,KAH,1606 Performed By: #### C BC, CMP #### [address] Hemoglobin (Bld) [Mass/Vol] 14.5 g/dL Normal 11.8-15.4 [facility] Comment on above: Order Comment: RIN T O COME TRY,KAH,160 Performed By: #### C BC, CMP #### [place] [address] [place] Lymphocytes (Bld) [#/Vol] 1.7 10*3/uL Normal 1.00-4.8 [facility] Comment on above: Order Comment: RIN T O COME TRY,KAH,160 Performed By: #### C BC, CMP #### [place] [id number] [place] Lymphocytes/100 WBC (Bld) 15.7 % Normal . [facility] Comment on above: Order Comment: RIN T O COME TRY,KAH,160 Performed By: #### C BC, CMP #### [place] [id number] [facility] MCH (RBC) [Entitic mass] 29.1 pg Normal 24.7-34.3 [facility] Comment on above: Order Comment: RIN T O COME TRY,KAH,1607 Performed By: #### C BC, CMP #### [address] MCV (RBC) [Entitic vol] 85.9 fL Normal 80-100 [facility] Comment on above: Order Comment: RIN T O COME TRY,KAH,1607 Performed By: #### C BC, CMP #### [address] Mean Corpuscular HGB Conc 33.8 g/dL Normal 32.0-35.0 [facility] Comment on above: Order Comment: RIN T O COME TRY,KAH,1607 Performed By: #### C BC, CMP #### [address] Monocytes (Bld) [#/Vol] 0.9 10*3/uL High 0.0-0.8 [facility] Comment on above: Order Comment: RIN T O COME TRY,KAH,1607 Performed By: #### C BC, CMP #### [address] Monocytes/100 WBC (Bld) 8.4 % Normal . [facility] Comment on above: Order Comment: RIN T O COME TRY,KAH,1607 Performed By: #### C BC, CMP #### [address] Neutrophils (Bld) [#/Vol] 8.0 10*3/uL High 1.8-7.7 [facility] Comment on above: Order Comment: RIN T O COME TRY,KAH,1607 Performed By: #### C BC, CMP #### [place] [address] [place] Neutrophils/100 WBC (Bld) 74.3 % Normal . [facility] Comment on above: Order Comment: RIN T O COME TRY,KAH,1607 Performed By: #### C BC, CMP #### [place] [address] [place] NRBC% 0.1 /100{WBC} Normal 0-0.5 [facility] Comment on above: Order Comment: RIN T O COME TRY,KAH,1607 Performed By: #### C BC, CMP #### [address] Platelet mean volume (Bld) [Entitic vol] 8.9 fL Normal 6.3-10.7 The [facility] Comment on above: Order Comment: RIN T O COME TRY,KAH,1607 Performed By: #### C BC, CMP #### [address] Platelets (Bld) [#/Vol] 291 10*3/uL Normal 150-450 [facility] Comment on above: Order Comment: RIN T O COME TRY,KAH,1607 Performed By: #### C BC, CMP #### [address] RBC (Bld) [#/Vol] 4.99 10*6/uL Normal 3.60-5.[address] [facility] Comment on above: Order Comment: RIN T O COME TRY,KAH,1607 Performed By: #### C BC, CMP #### [address] WBC (Bld) [#/Vol] 10.7 10*3/uL Normal 3.8-11.[address] [facility] Comment on above: Order Comment: RIN T O COME TRY,KAH,1607 Performed By: #### C BC, CMP #### [address] Comprehensive Metabolic Pane [place] 03-03-2024 Albumin [Mass/Vol] 4.6 g/dL Normal 3.5-5.7 [facility] Comment on above: Order Comment: RIN T O COME TRY,KAH,1607 Performed By: #### C BC, CMP #### [address] Albumin/Globulin [Mass ratio] 1.4 {ratio} Normal [facility] Comment on above: Order Comment: RIN T O COME TRY,KAH,1607 Performed By: #### C BC, CMP #### [facility] [address] [place] [id number] [place] ALP [Catalytic activity/Vol] 80 U/L Normal 34-104 [facility] Comment on above: Order Comment: RIN T O COME TRY,KAH,160 Performed By: #### C BC, CMP #### [address] ALT [Catalytic activity/Vol] 16 U/L Normal 7-52 [facility] Comment on above: Order Comment: RIN T O COME TRY,KAH,160 Performed By: #### C BC, CMP #### [place] [id number] [facility] Anion gap [Moles/Vol] 13.6 mmol/L Normal 6.0-15.0 [facility] Comment on above: Order Comment: RIN T O COME TRY,KAH,1606 Performed By: #### C BC, CMP #### [address] AST [Catalytic activity/Vol] 35 U/L Normal 13-39 [facility] Comment on above: Order Comment: RIN T O COME TRY,KAH,1606 Performed By: #### C BC, CMP #### [address] Bilirubin [Mass/Vol] 0.3 mg/dL Normal 0.3-1.0 [facility] Comment on above: Order Comment: RIN T O COME TRY,KAH,1606 Performed By: #### C BC, CMP #### [place] [id number] [place] Calcium [Mass/Vol] 9.3 mg/dL Normal 8.6-10.3 [facility] Comment on above: Order Comment: RIN T O COME TRY,KAH,1606 Performed By: #### C BC, CMP #### [facility] [address] [place], [place] [id number] [place] Chloride [Moles/Vol] 109 mmol/L High 98-107 [facility] Comment on above: Order Comment: RIN T O COME TRY,KAH,160 Performed By: #### C BC, CMP #### [place] [address] CO2 [Moles/Vol] 22.4 mmol/L Normal 21.0-31.0 [facility] Comment on above: Order Comment: RIN T O COME TRY,,1606 Performed By: #### C BC, CMP #### [facility] [address] [place] [phone] [facility] Creatinine [Mass/Vol] 0.93 mg/dL Normal 0.60-1.20 [facility] Comment on above: Order Comment: RIN T O COME TRY,,1606 Performed By: #### C BC, CMP #### [place] [address] Creatinine Clr Calc Pharmacy 87.94 Normal [facility] Comment on above: Order Comment: RIN T O COME TRY,,1606 Result Comment: PERF ORMED BY: [place] [address] PATHOLOGIST DANCE ARTIST ADIEL AGUSTIN M.D. Performed By: #### C BC, CMP #### [address] GFR/1.73 sq M.predicted MDRD (S/P/Bld) [Vol rate/Area] mL/min/{1.73_m2} Normal [facility] Comment on above: Order Comment: RIN T O COME TRY,,1606 Performed By: #### C BC, CMP #### [place] [address] Globulin (S) [Mass/Vol] 3.2 g/dL Normal [facility] Comment on above: Order Comment: RIN T O COME TRY,,1606 Performed By: #### C BC, CMP #### [place] [address] Glucose [Mass/Vol] 105 mg/dL High 70-100 [facility] Comment on above: Order Comment: RIN T O COME TRY,,1606 Result Comment: [place] Glucose Reference Range is dependent on time and content of last meal. Glucose of more than 200 mg/dL in a nonstressed, ambulatory subject supports the diagnosis of Diabetes Mellitus. ADA recommended reference range Performed By: #### C BC, CMP #### [place] [address] Potassium [Moles/Vol] 4.0 mmol/L Normal 3.5-5.1 [facility] Comment on above: Order Comment: RIN T O COME TRY,KAH,1607 Performed By: #### C BC, CMP #### [place] [address] Protein [Mass/Vol] 7.8 g/dL Normal 6.4-8.9 [facility] Comment on above: Order Comment: RIN T O COME TRY,KAH,1607 Performed By: #### C BC, CMP #### [place] [address] [place] [address] [place] Sodium [Moles/Vol] 141 mmol/L Normal 136-145 [facility] Comment on above: Order Comment: RIN T O COME TRY,KAH,1607 Performed By: #### C BC, CMP #### [place] [address] Urea nitrogen [Mass/Vol] 15 mg/dL Normal 7-25 [facility] Comment on above: Order Comment: RIN T O COME TRY,KAH,1607 Performed By: #### C BC, CMP #### [place] [address] [place] IGP,APTIMA HPV,AGE GDLNon AGE GDLN ACOG TESTING Note . [facility] Comment on above: TESTS RESULT FLAG U NITS REF RANGE LAB Clinician Provided Cytology Information Source.............Cervix;Endocervix No. of containers..01 ThinPrep Vial Age Algo ACOG Tona... 30 FLAG LEGEND: L-Low Normal,H-High Normal,LL-Alert Low,HH-Alert High <-Panic Low,>-Panic High,A-Abnormal,AA-Critical Abnormal Performed at: 01 =[address] [address] Farzana Hennessy MD, HPV APTIMA Negative Negative [facility] Comment on above: This nucleic acid am plification test detects fourteen high- risk HPV types (16,18,31,33,35,39,45,51,52,56,58,59,66,68) without differentiation. Performed at: =[address] [id number] Avionic Technician: Farzana Hennessy MD, Phone: [phone] Performed at: [facility]to [facility] [address] [place] [id number] Avionic Technician: Scott Sandoval MD, Phone: [phone] IGP, APTIMA HPV, RFX 16/18,45 Note . [facility] Comment on above: TESTS RESULT FLAG UN ITS REF RANGE LAB DIAGNOSIS: 02 NEGATIVE FOR INTRAEPITHELIAL LESION OR MALIGNANCY. Specimen adequacy: 02 Satisfactory for evaluation. Endocervical and/or squamous metaplastic cells (endocervical component) are present. Performed by: Adelaida Bustamante, Satellite Manager (ASCP) . 02 Note: Note 03 The [...] High,A-Abnormal,AA-Critical Abnormal Performed at: 02 [facility] [address] [place] [address] Scott Sandoval MD, 03 WB [facility] [address] [address] Farzana Hennessy MD, BROOM-ALONE CERVIX ENDOCERVIX [facility] Urinalysis macro (dipstick) panel (U)on 01-28-2024 Bilirubin, UA Negative Negative - 4(70) +++ mg/dL [facility] Blood, UA Negative Negative - 50 Kranthi/mcL [facility] Clarity, UA Clear [facility] Color, UA Dark Tania [facility] Glucose, UA Negative Negative - 2000(110) ++++ mg/dL [facility] Interpretation and review of laboratory results Abnormal [facility] Healthcare Ketones, UA Negative Negative - 160(16) ++++ mg/dL [facility] Leukocytes, UA Trace Negative - 500+++ Radha/mcL [facility] Nitrite, UA Negative Negative - Positive [facility] pH, UA 5.5 5 - 9 [facility] Protein, UA Negative Negative - 2000(20) ++++ mg/dL [facility] Spec Grav, UA 1.025 1 - 1.03 [facility] Urobilinogen, UA 0.2 0.2 - 12 mg/dL [facility] MHPT CULT,URINEon 01-23-2024 Interpretation and review of laboratory results [facility] Spec[facility] Description .CLEAN C[facility] Culture ESCHERICHIA COLI >100,000 CFU/ML Ab[facility] STREPTOCOCCI, BETA HEMOLYTIC GROUP B 10 to 50,000 CFU/ML [facility] Report Status FINAL 01/23/2024 [facility]PT CULT[facility]URINE [facility]CEPT[facility] Organism ESCHERICHIA COLI [facility] Method [facility]OW [facility] Ampicillin 16 INTERMEDIATE Intermediate [facility] Cefazolin <=4 SUSCEPTIBLE Susceptible [facility] Cefazolin sensitivit y results can be used to predict the effectiveness of oral Susceptible [facility] cephalosporins (eg. Cephalexin) in uncomplicated Urinary Tract Infections due Susceptible [facility]PT CULT,URINE to E. coli, K. pneumoniae, and P. mirabilis Susceptible [facility]PT CULT,URINE Ceftriaxone <=0.25 SUSCEPTIBLE Susceptible [facility] CULT,URINE Negative [facility]ceptible [facility] Gentamicin <=1 SUSCEPTIBLE Susceptible [facility] Levofloxacin <=0.12 SUSCEPTIBLE Susceptible [facility] Nitrofurantoin <=16 SUSCEPTIBLE Susceptible [facility] Piperacillin/Tazobac ta m <=4 SUSCEPTIBLE Susceptible [facility]PT CULT,URINE Tobramycin <=1 SUSCEPTIBLE [facility]ceptible [facility] Trimethoprim/Sulfa <=20 SUSCEPTIBLE Susceptible [facility] Original Ordering Provider: RICHA DAVENPORT [facility] ALL BASIC METABOLIC PANELon 01-05-2024 Anion gap [Moles/Vol] 11.1 mmol/L [facility] Calcium [Mass/Vol] 9.2 mg/dL 8.5 - 10. 1 mg/dL [facility] Chloride [Moles/Vol] 105 mmol/L 98 - 10 7 mmol/L [facility] CO2 [Moles/Vol] 28.0 mmol/L 21.0 - 32.0 mmol/L [facility] Creatinine [Mass/Vol] 1.08 mg/dL High 0.55 - 1.02 mg/dL [facility] GFR/1.73 sq M.predicted CKD-EPI (S/P/Bld) [Vol rate/Area] >60 60 - PINF [facility] Glucose [Mass/Vol] 92 mg/dL 74 - 106 mg/dL [facility] Interpretation and review of laboratory results Abnormal [facility] Potassium [Moles/Vol] 4.1 mmol/L 3.5 - 5.1 mmol/L [facility] Sodium [Moles/Vol] 140 mmol/L 136 - 145 mmol/L [facility] TBH EGFR-NON AF CYMRO 51 Low 60 - PINF [facility] Urea nitrogen [Mass/Vol] 17.0 mg/dL 7.0 - 18.0 mg/dL [facility] Urea nitrogen/Creatinine [Mass ratio] 15.7 mg/mg [facility] Amphetamine Screen Ql (U)Ord ered By: Jace Graham on 03-23-2023 Amphetamines Ql (U) Negative Negative [facility] Barbiturates [Presence] in U rine by Screen methodOrdered By: Jace Graham on 03-23-2023 Barbiturates Screen Ql (U) Negative Negative [facility] Benzodiazepines Screen Ql (U )Ordered By: Jace Graham on 03-23-2023 Benzodiazepines Ql (U) Negative Negative [facility] Benzoylecgonine [Presence] i n Urine by Screen methodOrdered By: Jace Graham on 03-23-2023 Benzoylecgonine Screen Ql (U) Negative Negative [facility] Cannabinoids [Presence] in U rine by Screen methodOrdered By: Jace Graham on 03-23-2023 Cannabinoids Screen Ql (U) Negative Negative [facility] Comment on above: These are [...] Hospital Phencyclidine Screen Ql (U)O rdered By: Jcae Graham on 03-23-2023 Phencyclidine Ql (U) Negative Negative [facility] Cholesterol [Mass/volume] in Serum or PlasmaOrdered By: Eduardo Monk on 11-18-2022 Cholesterol [Mass/Vol] 159 mg/dL 140-200 [facility] Comment on above: Chol less than 200 m g/dl low riskChol 201-239 mg/dl borderline riskChol 240 mg/dl and greater high risk Cholesterol in LDL Calc [Mas s/Vol]Ordered By: Eduardo Monk on 11-18-2022 Cholesterol in LDL [Mass/Vol] 84 mg/dL 0-100 [facility] Comment on above: LDL ATP III CLASSIFI CATIONLDL less than 100 mg/dL OptimalLDL 100-129 mg/dL Near or above optimalLDL 130-159 mg/dL Borderline highLDL 160-189 mg/dL HighLDL greater than 189 mg/dL Very high Cholesterol in VLDL Calc [Ma ss/Vol]Ordered By: Eduardo Monk on 11-18-2022 Cholesterol in VLDL [Mass/Vol] 28 mg/dL [facility] Serum or plasma high density lipoprotein (HDL) cholesterol measurementOrdered By: Eduardo Monk on 11-18-2022 Cholesterol in HDL [Mass/Vol] 46 mg/dL 23-92 [facility] Comment on above: HDL CHOL ATP-III CLA SSIFICATION Cardiovascular RiskHDL > or equal to 60 mg/dL LOWHDL < 40 mg/dL HIGH Serum or plasma total choles terol/high density lipoprotein (HDL) cholesterol mass ratOrdered By: Eduardo Monk on 11-18-2022 Cholesterol.total/Chol esterol in HDL [Mass ratio] 3.5 {ratio} <5.0 [facility] Thyrotropin [Units/volume] i n Serum or PlasmaOrdered By: Eduardo Monk on 11-18-2022 TSH Qn 2.13 m[IU]/L 0.45-5.33 [facility] Triglyceride [Mass/volume] i n Serum or PlasmaOrdered By: Eduardo Monk on 11-18-2022 Triglyceride [Mass/Vol] 144 mg/dL 0-149 [facility] Comment on above: TRIG ATP III CLASSIF ICATIONTRIG less than 150 mg/dL NormalTRIG 150-199 mg/dL Borderline highTRIG 200-500 mg/dL High TRIG greater than 500 mg/dL Very highStandard traceable to the Center for Disease Conrtrol and Prevention (CDC) test method. Vitamin D+Metabolites [Mass/ volume] in Serum or PlasmaOrdered By: Eduardo Monk on 11-18-2022 Vitamin D+Metabolites [Mass/Vol] 50.4 ng/mL 30-100 [facility] Comment on above: VITAMIN D STATUS 25( [place])VITAMIN D RANGE (ng/mL) Deficient <20 Insufficient 20 to <30Sufficient 30 to 100Reference: Bin MF,Lakshmi CABRERA, Cristian SMART, et al. Evaluation,treatment, and prevention of vitamin D deficiency; an Endocrine Society clinical practice guideline. JCEM. 2010; 96(7):1911-30. CBC AUTO DIFFon 07-25-2022 BASO # 0.1 103/ul Normal 0.0-0.1 [facility] Comment on above: Performed By: #### A 1C #### [facility] [address] [place] [address] Dr. Bebeto Alvarado Basophils/100 WBC (Bld) 0.6 % Normal 0.2-2.0 [facility] Comment on above: Performed By: #### A 1C #### [facility] [address] [address] [address] Bebeto Alvarado EO # 0.2 103/ul Normal 0.0-0.7 [facility] Comment on above: Performed By: #### A 1C #### [facility] [address] [address] [address] Bebeto Alvarado Eosinophils/100 WBC (Bld) 2.3 % Normal 0.9-7.0 [facility] Comment on above: Performed By: #### A 1C #### [facility] [address] [place] [address] Dr. Bebeto Alvarado Erythrocyte distribution width (RBC) [Ratio] 13.8 % Normal 11.0-15.0 [facility] Comment on above: Performed By: #### A 1C #### [facility] [address] [place] [address] Dr. Bebeto Alvarado Hematocrit (Bld) [Volume fraction] 41.2 % Normal 36.0-48.0 [facility] Comment on above: Performed By: #### A 1C #### [facility] [address] [place] [address] Dr. Bebeto Alvarado Hemoglobin (Bld) [Mass/Vol] 13.2 g/dL Normal 12.0-16.0 [facility] Comment on above: Performed By: #### A 1C #### [facility] [address] [place] [address] Dr. Bebeto Alvarado IG # 0.03 10e3/ul Normal 0.00-0.03 [facility] Comment on above: Performed By: #### A 1C #### [facility] [address] [place] [address] Dr. Bebeto Alvarado IG % 0.4 % Normal 0.0-0.5 [facility] Comment on above: Performed By: #### A 1C #### [facility] [address] [place] [address] Dr. Bebeto Alvarado LYMPH # 2.1 103/ul Normal 1.2-3.8 [facility] Comment on above: Performed By: #### A 1C #### [facility] [address] [place] [address] Dr. Bebeto Alvarado Lymphocytes/100 WBC (Bld) 25.9 % Normal 20.5-60.0 [facility] Comment on above: Performed By: #### A 1C #### [facility] [address] [place] [address] Dr. Bebeto Alvarado MANUAL DIFF REQ NO Normal [facility] Comment on above: Performed By: #### A 1C #### [facility] [address] [address] [address] Bebeto Alvarado MCH (RBC) [Entitic mass] 28.0 pg Normal 26.7-34.0 [facility] Comment on above: Performed By: #### A 1C #### [facility] [address] [place] [address] Dr. Bebeto Alvarado MCHC (RBC) [Mass/Vol] 32.0 g/dL Normal 29.9-35.2 [facility] Comment on above: Performed By: #### A 1C #### [facility] [address] [place] [address] Dr. Bebeto Alvarado MCV (RBC) [Entitic vol] 87.5 fL Normal 81.0-99.0 [facility] Comment on above: Performed By: #### A 1C #### [facility] [address] [place] [address] Dr. Bebeto Alvarado MONO # 0.5 103/ul Normal 0.3-0.8 [facility] Comment on above: Performed By: #### A 1C #### [facility] [address] [place] [address] Dr. Bebeto Alvarado Monocytes/100 WBC (Bld) 6.6 % Normal 1.7-12.0 [facility] Comment on above: Performed By: #### A 1C #### [facility] [address] [place] [address] Dr. Bebeto Alvarado NEUT # 5.1 103/ul Normal 1.4-6.5 [facility] Comment on above: Performed By: #### A 1C #### [facility] [address] [place] [address] Dr. Bebeto Alvarado Neutrophils/100 WBC (Bld) 64.2 % Normal 43.0-75.0 [facility] Comment on above: Performed By: #### A 1C #### [facility] [address] [place] [address] Dr. Bebeto Alvarado Platelet mean volume (Bld) [Entitic vol] 11.2 fL Normal 9.5-13.5 [facility] Comment on above: Performed By: #### A 1C #### [facility] [address] [address] [address] Bebeto Alvarado PLT 252 103/ul Normal 150-450 [facility] Comment on above: Performed By: #### A 1C #### [facility] [address] [address] [address] Bebeto Alvarado RBC 4.71 106/ul Normal 4.20-5.40 [facility] Comment on above: Performed By: #### A 1C #### [facility] [address] [address] [address] Bebeto Alvarado WBC 8.0 103/ul Normal 4.0-11.0 [facility] Comment on above: Performed By: #### A 1C #### [facility] [address] [address] [address] Bebeto Alvarado GLYCOHEMOGLOBIN A1Con 2022 ADA RECOMMENDATION SEE BELOW Normal [facility] Comment on above: Result Comment: ADA RECOMMENDED LIMIT 4.0 - 6.0 ADA THERAPEUTIC TARGET < 7.0 ACTION SUGGESTED > 7.0 Performed By: #### A 1C #### [facility] [address] [address] [address] Bebeto Alvarado Glucose [Mass/Vol] 114 mg/dL Normal [facility] Comment on above: Performed By: #### A 1C #### [facility] [address] [address] [address] Bebeto Alvarado HbA1c (Bld) [Mass fraction] 5.6 % Normal 4.5-6.2 [facility] Comment on above: Performed By: #### A 1C #### [facility] [address] [address] [address] Bebeto Alavrado IRONon 07-25-2022 Iron [Mass/Vol] 60.0 ug/dL Normal 50.0-170.0 [facility] Comment on above: Performed By: #### V ITB12, IRON #### [facility] [address] [address] [address] Bebeto Alvarado LIPID PROFILEon 07-25-2022 CHOL-HDL RATIO NORM SEE BELOW Normal [facility] Comment on above: Result Comment: 3.3 - 4.4 LOW RISK 4.4 - 7.1 AVERAGE RISK 7.1 - 11.0 MODERATE RISK >11.0 HIGH RISK Performed By: #### C MP, LIPID #### [facility] [address] [address] [address] Bebeto Alvarado Cholesterol [Mass/Vol] 144 mg/dL Normal <=200 Th [facility] Comment on above: Performed By: #### C MP, LIPID #### [facility] [address] [address] [address] Bebeto Alvarado Cholesterol in HDL [Mass/Vol] 39 mg/dL Critically low 40-60 [facility] Comment on above: Performed By: #### C MP, LIPID #### [facility] [address] [address] [address] Bebeto Alvarado Cholesterol in LDL [Mass/Vol] 74.6 mg/dL Normal [facility] Comment on above: Performed By: #### C MP, LIPID #### [facility] [address] [address] [address] Bebeto Alvarado Cholesterol.total/Chol esterol in HDL [Mass ratio] 3.7 {ratio} Normal [facility] Comment on above: Performed By: #### C MP, LIPID #### [facility] [address] [address] [address] Bebeto Alvarado HDL NORMAL > or = 60 mg/dl - LO W CARDIOVASCULAR RISK <40 mg/dl - HIGH CARDIOVASCULAR RISK Normal [facility] Comment on above: Performed By: #### C MP, LIPID #### [facility] [address] [address] [address] Bebeto Alvarado LDL CALC NORMAL SEE BELOW Normal [facility] Comment on above: Result Comment: <100 mg/dl OPTIMAL 100 - 129 mg/dl NEAR OR ABOVE OPTIMAL 130 - 159 mg/dl BORDERLINE HIGH 160 - 189 mg/dl HIGH >190 mg/dl VERY HIGH Performed By: #### C MP, LIPID #### [facility] [address] [address] [address] Bebeto Alvarado Triglyceride [Mass/Vol] 152 mg/dL Critically high <=150 [facility] Comment on above: Performed By: #### C MP, LIPID #### [facility] [address] [place] [address] Dr. Bebeto Alvarado VLDL CALC 30.4 mg/dL Normal [facility] Comment on above: Performed By: #### C MP, LIPID #### [facility] [address] [place] [address] Dr. Bebeto Alvarado PROF 14(COMP METB)on 023 Albumin [Mass/Vol] 3.7 g/dL Normal 3.4-5.0 [facility] Comment on above: Performed By: #### C MP, LIPID #### [facility] [address] [place] [address] Dr. Bebeto Alvarado Albumin/Globulin [Mass ratio] 0.9 {ratio} Normal [facility] Comment on above: Performed By: #### C MP, LIPID #### [facility] [address] [place] [address] Dr. Bebeto Alvarado ALP [Catalytic activity/Vol] 90 U/L Normal 46-116 [facility] Comment on above: Performed By: #### C MP, LIPID #### [facility] [address] [place] [address] Dr. Bebeto Alvarado ALT [Catalytic activity/Vol] 38 U/L Normal 14-59 [facility] Comment on above: Performed By: #### C MP, LIPID #### [facility] [address] [place] [address] Dr. Bebeot Alvarado Anion gap [Moles/Vol] 12.1 mmol/L Normal [facility] Comment on above: Performed By: #### C MP, LIPID #### [facility] [address] [place] [address] Dr. Bebeto Alvarado AST [Catalytic activity/Vol] 26 U/L Normal 15-37 [facility] Comment on above: Performed By: #### C MP, LIPID #### [facility] [address] [place] [address] Dr. Bebeto Alvarado Bilirubin [Mass/Vol] 0.3 mg/dL Normal 0.2-1.0 [facility] Comment on above: Performed By: #### C MP, LIPID #### [facility] [address] [place] [address] Dr. Bebeto Alvarado Calcium [Mass/Vol] 9.3 mg/dL Normal 8.5-10.1 [facility] Comment on above: Performed By: #### C MP, LIPID #### [facility] [address] [place] [address] Dr. Bebeto Alvarado Chloride [Moles/Vol] 107 mmol/L Normal 98-107 [facility] Comment on above: Performed By: #### C MP, LIPID #### [facility] [address] [place] [address] Dr. Bebeto Alvarado CO2 [Moles/Vol] 27.9 mmol/L Normal 21.0-32.0 [facility] Comment on above: Performed By: #### C MP, LIPID #### [facility] [address] [place] [address] Dr. Bebeto Alvarado Creatinine [Mass/Vol] 0.95 mg/dL Normal 0.55-1.02 [facility] Comment on above: Performed By: #### C MP, LIPID #### [facility] [address] [place] [address] Dr. Bebeto Alvarado EGFR-AF CYMRO >60 Normal >=60 [facility] Comment on above: Performed By: #### C MP, LIPID #### [facility] [address] [place] [address] Dr. Bebeto Alvarado EGFR-NON AF CYMRO 60 mL/min/1.73m2 Normal >=60 [facility] Comment on above: Performed By: #### C MP, LIPID #### [facility] [address] [place] [address] Dr. Bebeto Alvarado Globulin (S) [Mass/Vol] 3.9 g/dL Normal [facility] Comment on above: Performed By: #### C MP, LIPID #### [facility] [address] [place] [address] Dr. Bebeto Alvarado Glucose [Mass/Vol] 108 mg/dL Critically high 74-106 T [facility] Comment on above: Performed By: #### C MP, LIPID #### [facility] [address] [place] [address] Dr. Bebeto Alvarado Potassium [Moles/Vol] 4.0 mmol/L Normal 3.5-5.1 [facility] Comment on above: Performed By: #### C MP, LIPID #### [facility] [address] [place] [address] Dr. Bebeto Alvarado Protein [Mass/Vol] 7.6 g/dL Normal 6.4-8.2 [facility] Comment on above: Performed By: #### C MP, LIPID #### [facility] [address] [place] [address] Dr. Bebeto Alvarado Sodium [Moles/Vol] 143 mmol/L Normal 136-145 [facility] Comment on above: Performed By: #### C MP, LIPID #### [facility] [address] [place] [address] Dr. Bebeto Alvarado Urea nitrogen [Mass/Vol] 15.0 mg/dL Normal 7.0-18.0 [facility] Comment on above: Performed By: #### C MP, LIPID #### [facility] [address] [place] [address] Dr. Bebeto Alvarado Urea nitrogen/Creatinine [Mass ratio] 15.8 mg/mg Normal [facility] Comment on above: Performed By: #### C MP, LIPID #### [facility] [address] [place] [address] Dr. Bebeto Alvarado UA RANDOM W/MICROSCOPICon BACTERIA NONE SEEN Normal NONE SEEN [facility] Comment on above: Performed By: #### A 1C #### [facility] [address] [place] [address] Dr. Bebeto Alvarado Bilirubin Ql (U) Negative Normal NEGATIVE [facility] Comment on above: Performed By: #### A 1C #### [facility] [address] [place] [address] Dr. Bebeto Alvarado CAST NONE SEEN Normal NONE SEEN [facility] Comment on above: Performed By: #### A 1C #### [facility] [address] [place] [address] Dr. Bebeto Alvarado Clarity (U) CLEAR Normal CLEAR [facility] Comment on above: Performed By: #### A 1C #### [facility] [address] [place] [address] Dr. Bebeto Alvarado Color (U) YELLOW Normal YELLOW [facility] Comment on above: Performed By: #### A 1C #### [facility] [address] [place] [address] Dr. Bebeto Alvarado Crystals LM Nom (Urine sed) NONE SEEN Normal NONE SEEN [facility] Comment on above: Performed By: #### A 1C #### [facility] [address] [place] [address] Dr. Bebeto Alvarado Epithelial cells LM Ql (Urine sed) NONE SEEN Normal NONE SEEN /RARE [facility] Comment on above: Performed By: #### A 1C #### [facility] [address] [place] [address] Dr. Bebeto Alvarado Glucose Ql (U) Negative Normal NEGATIVE [facility] Comment on above: Performed By: #### A 1C #### [facility] [address] [place] [address] Dr. Bebeto Alvarado Hemoglobin Ql (U) Negative Normal NEGATIVE [facility] Comment on above: Performed By: #### A 1C #### [facility] [address] [place] [address] Dr. Bebeto Alvarado Ketones Ql (U) Negative Normal NEGATIVE [facility] Comment on above: Performed By: #### A 1C #### [facility] [address] [place] [address] Dr. Bebeto Alvarado LEUKOCYTES Negative Normal NEGATIVE [facility] Comment on above: Performed By: #### A 1C #### [facility] [address] [place] [address] Dr. Bebeto Alvarado MUCOUS NONE SEEN Normal NONE SEEN [facility] Comment on above: Performed By: #### A 1C #### [facility] [address] [place] [address] Dr. Bebeto Alvarado Nitrite Ql (U) Negative Normal NEGATIVE [facility] Comment on above: Performed By: #### A 1C #### [facility] [address] [place] [address] Dr. Bebeto Alvarado pH (U) 5.5 [pH] Normal 5-9 [facility] Comment on above: Performed By: #### A 1C #### [facility] [address] [place] [address] Dr. Bebeto Alvarado RBC NONE SEEN Abnormal 0-2 [facility] Comment on above: Performed By: #### A 1C #### [facility] [address] [place] [address] Dr. Bebeto Alvarado SPEC GRAVITY 1.030 Abnormal 1.005-<=1.[address] [facility] Comment on above: Performed By: #### A 1C #### [facility] [address] [place] [address] Dr. Bebeto Alvarado UA PROTEIN Negative Normal NEGATIVE/ TRACE [facility] Comment on above: Performed By: #### A 1C #### [facility] [address] [place] [address] Dr. Bebeto Alvarado Urobilinogen Qn (U) 0.2 {Katerin'U}/dL Normal 0.2 - 1. 0 [facility] Comment on above: Performed By: #### A 1C #### [facility] [address] [place] [address] Dr. Bebeto Alvarado WBC NONE SEEN Normal NONE SEEN [facility] Comment on above: Performed By: #### A 1C #### [facility] [address] [place] [address] Dr. Bebeto Alvarado VITAMIN B12on 07-25-2022 Cobalamin (Vitamin B12) [Mass/Vol] 1684.0 pg/mL Critically high 193.0-986.0 [facility] Comment on above: Performed By: #### V ITB12, IRON #### [facility] [address] [place] [address] Dr. Bebeto Alvarado PROF CHEM 8 (BAS METB)on Anion gap [Moles/Vol] 12.2 mmol/L Normal [facility] Comment on above: Performed By: #### B MP #### [facility] [address] [address] [address] Bebeto Alvarado Calcium [Mass/Vol] 8.9 mg/dL Normal 8.5-10.1 [facility] Comment on above: Performed By: #### B MP #### [facility] [address] [address] [address] Bebeto Alvarado Chloride [Moles/Vol] 105 mmol/L Normal 98-107 [facility] Comment on above: Performed By: #### B MP #### [facility] [address] [address] [address] Bebeto Alvarado CO2 [Moles/Vol] 29.6 mmol/L Normal 21.0-32.0 [facility] Comment on above: Performed By: #### B MP #### [facility] [address] [place] [address] Dr. Bebeto Alvarado Creatinine [Mass/Vol] 0.95 mg/dL Normal 0.55-1.02 [facility] Comment on above: Performed By: #### B MP #### [facility] [address] [address] [address] Bebeto Alvarado EGFR-AF CYMRO >60 Normal >=60 [facility] Comment on above: Performed By: #### B MP #### [facility] [address] [address] [address] Bebeto Alvarado EGFR-NON AF CYMRO 60 mL/min/1.73m2 Normal >=60 [facility] Comment on above: Performed By: #### B MP #### [facility] [address] [address] [address] Bebeto Alvarado Glucose [Mass/Vol] 101 mg/dL Normal 74-106 [facility] Comment on above: Performed By: #### B MP #### [facility] [address] [address] [address] Bebeto Alvarado Potassium [Moles/Vol] 3.8 mmol/L Normal 3.5-5.1 [facility] Comment on above: Performed By: #### B MP #### [facility] [address] [place] [address] Dr. Bebeto Alvarado Sodium [Moles/Vol] 143 mmol/L Normal 136-145 [facility] Comment on above: Performed By: #### B MP #### [facility] [address] [place] [address] Dr. Bebeto Alvarado Urea nitrogen [Mass/Vol] 16.0 mg/dL Normal 7.0-18.0 [facility] Comment on above: Performed By: #### B MP #### [facility] [address] [place] [address] Dr. Bebeto Alvarado Urea nitrogen/Creatinine [Mass ratio] 16.8 mg/mg Normal [facility] Comment on above: Performed By: #### B MP #### [facility] [address] [place] [address] Dr. Bebeto Alvarado CBC AUTO DIFFon 11-21-2021 BASO # 0.1 103/ul Normal 0.0-0.1 [facility] Comment on above: Performed By: #### A 1C #### [facility] [address] [place] [address] Dr. Bebeto Alvarado Basophils/100 WBC (Bld) 1.0 % Normal 0.2-2.0 [facility] Comment on above: Performed By: #### A 1C #### [facility] [address] [place] [address] Dr. Bebeto Alvarado EO # 0.2 103/ul Normal 0.0-0.7 [facility] Comment on above: Performed By: #### A 1C #### [facility] [address] [place] [address] Dr. Bebeto Alvarado Eosinophils/100 WBC (Bld) 3.3 % Normal 0.9-7.0 [facility] Comment on above: Performed By: #### A 1C #### [facility] [address] [place] [address] Dr. Bebeto Alvarado Erythrocyte distribution width (RBC) [Ratio] 13.8 % Normal 11.0-15.0 [facility] Comment on above: Performed By: #### A 1C #### [facility] [address] [place] [address] Dr. Bebeto Alvarado Hematocrit (Bld) [Volume fraction] 38.8 % Normal 36.0-48.0 [facility] Comment on above: Performed By: #### A 1C #### [facility] [address] [place] [address] Dr. Bebeto Alvarado Hemoglobin (Bld) [Mass/Vol] 12.5 g/dL Normal 12.0-16.0 [facility] Comment on above: Performed By: #### A 1C #### [facility] [address] [place] [address] Dr. Bebeto Alvarado IG # 0.02 10e3/ul Normal 0.00-0.03 [facility] Comment on above: Performed By: #### A 1C #### [facility] [address] [place] [address] Dr. Bebeto Alvarado IG % 0.3 % Normal 0.0-0.5 [facility] Comment on above: Performed By: #### A 1C #### [facility] [address] [place] [address] Dr. Bebeto Alvarado LYMPH # 1.9 103/ul Normal 1.2-3.8 [facility] Comment on above: Performed By: #### A 1C #### [facility] [address] [place] [address] Dr. Bebeto Alvarado Lymphocytes/100 WBC (Bld) 29.6 % Normal 20.5-60.0 [facility] Comment on above: Performed By: #### A 1C #### [facility] [address] [place] [address] Dr. Bebeto Alvarado MANUAL DIFF REQ NO Normal [facility] Comment on above: Performed By: #### A 1C #### [facility] [address] [place] [address] Dr. Bebeto Alvarado MCH (RBC) [Entitic mass] 28.0 pg Normal 26.7-34.0 [facility] Comment on above: Performed By: #### A 1C #### [facility] [address] [place] [address] Dr. Bebeto Alvarado MCHC (RBC) [Mass/Vol] 32.2 g/dL Normal 29.9-35.2 [facility] Comment on above: Performed By: #### A 1C #### [facility] [address] [place] [address] Dr. Bebeto Alvarado MCV (RBC) [Entitic vol] 86.8 fL Normal 81.0-99.0 [facility] Comment on above: Performed By: #### A 1C #### [facility] [address] [place] [address] Dr. Bebeto Alvarado MONO # 0.4 103/ul Normal 0.3-0.8 [facility] Comment on above: Performed By: #### A 1C #### [facility] [address] [place] [address] Dr. Bebeto Alvarado Monocytes/100 WBC (Bld) 5.7 % Normal 1.7-12.0 [facility] Comment on above: Performed By: #### A 1C #### [facility] [address] [place] [address] Dr. Bebeto Alvarado NEUT # 3.8 103/ul Normal 1.4-6.5 [facility] Comment on above: Performed By: #### A 1C #### [facility] [address] [place] [address] Dr. Bebeto Alvarado Neutrophils/100 WBC (Bld) 60.1 % Normal 43.0-75.0 [facility] Comment on above: Performed By: #### A 1C #### [facility] [address] [place] [address] Dr. Bebeto Alvarado Platelet mean volume (Bld) [Entitic vol] 11.0 fL Normal 9.5-13.5 [facility] Comment on above: Performed By: #### A 1C #### [facility] [address] [place] [address] Dr. Bebeto Alvarado PLT 264 103/ul Normal 150-450 [facility] Comment on above: Performed By: #### A 1C #### [facility] [address] [place] [address] Dr. Bebeto Alvarado RBC 4.47 106/ul Normal 4.20-5.40 [facility] Comment on above: Performed By: #### A 1C #### [facility] [address] [address] [address] Bebeto Alvarado WBC 6.3 103/ul Normal 4.0-11.0 [facility] Comment on above: Performed By: #### A 1C #### [facility] [address] [address] [address] Bebeto Alvarado GLYCOHEMOGLOBIN A1Con 2021 ADA RECOMMENDATION SEE BELOW Normal [facility] Comment on above: Result Comment: ADA RECOMMENDED LIMIT 4.0 - 6.0 ADA THERAPEUTIC TARGET < 7.0 ACTION SUGGESTED > 7.0 Performed By: #### A 1C #### [facility] [address] [address] [address] Bebeto Alvarado Glucose [Mass/Vol] 105 mg/dL Normal [facility] Comment on above: Performed By: #### A 1C #### [facility] [address] [address] [address] Bebeto Alvarado HbA1c (Bld) [Mass fraction] 5.3 % Normal 4.5-6.2 [facility] Comment on above: Performed By: #### A 1C #### [facility] [address] [address] [address] Bebeto Alvarado IRONon 11-21-2021 Iron [Mass/Vol] 59.0 ug/dL Normal 50.0-170.0 [facility] Comment on above: Performed By: #### A 1C #### [facility] [address] [address] [address] Bebeto Alvarado LIPID PROFILEon 11-21-2021 CHOL-HDL RATIO NORM SEE BELOW Normal [facility] Comment on above: Result Comment: 3.3 - 4.4 LOW RISK 4.4 - 7.1 AVERAGE RISK 7.1 - 11.0 MODERATE RISK >11.0 HIGH RISK Performed By: #### C MP, LIPID #### [facility] [address] [address] [address] Bebeto Alvarado Cholesterol [Mass/Vol] 139 mg/dL Normal <=200 Th [facility] Comment on above: Performed By: #### C MP, LIPID #### [facility] [address] [address] [address] Bebeto Alvarado Cholesterol in HDL [Mass/Vol] 35 mg/dL Critically low 40-60 [facility] Comment on above: Performed By: #### C MP, LIPID #### [facility] [address] [address] [address] Bebeto Alvarado Cholesterol in LDL [Mass/Vol] 69.6 mg/dL Normal [facility] Comment on above: Performed By: #### C MP, LIPID #### [facility] [address] [address] [address] Bebeto Alvarado Cholesterol.total/Chol esterol in HDL [Mass ratio] 4.0 {ratio} Normal [facility] Comment on above: Performed By: #### C MP, LIPID #### [facility] [address] [address] [address] Bebeto Alvarado HDL NORMAL > or = 60 mg/dl - LO W CARDIOVASCULAR RISK <40 mg/dl - HIGH CARDIOVASCULAR RISK Normal [facility] Comment on above: Performed By: #### C MP, LIPID #### [facility] [address] [place] [address] Dr. Bebeto Alvarado LDL CALC NORMAL SEE BELOW Normal [facility] Comment on above: Result Comment: <100 mg/dl OPTIMAL 100 - 129 mg/dl NEAR OR ABOVE OPTIMAL 130 - 159 mg/dl BORDERLINE HIGH 160 - 189 mg/dl HIGH >190 mg/dl VERY HIGH Performed By: #### C MP, LIPID #### [facility] [address] [address] [address] Bebeto Alvarado Triglyceride [Mass/Vol] 172 mg/dL Critically high <=150 [facility] Comment on above: Performed By: #### C MP, LIPID #### [facility] [address] [address] [address] Bebeto Alvarado VLDL CALC 34.4 mg/dL Normal [facility] Comment on above: Performed By: #### C MP, LIPID #### [facility] [address] [address] [address] Bebeto Alvarado PROF 14(COMP METB)on 022 Albumin [Mass/Vol] 3.8 g/dL Normal 3.4-5.0 [facility] Comment on above: Performed By: #### C MP, LIPID #### [facility] [address] [address] [address] Bebeto Alvarado Albumin/Globulin [Mass ratio] 1.1 {ratio} Normal [facility] Comment on above: Performed By: #### C MP, LIPID #### [facility] [address] [address] [address] Bebeto Alvarado ALP [Catalytic activity/Vol] 96 U/L Normal 46-116 [facility] Comment on above: Performed By: #### C MP, LIPID #### [facility] [address] [place] [address] Dr. Bebeto Alvarado ALT [Catalytic activity/Vol] 25 U/L Normal 14-59 [facility] Comment on above: Performed By: #### C MP, LIPID #### [facility] [address] [address] [address] Bebeto Alvarado Anion gap [Moles/Vol] 11.8 mmol/L Normal [facility] Comment on above: Performed By: #### C MP, LIPID #### [facility] [address] [address] [address] Bebeto Alvarado AST [Catalytic activity/Vol] 20 U/L Normal 15-37 [facility] Comment on above: Performed By: #### C MP, LIPID #### [facility] [address] [address] [address] Bebeto Alvarado Bilirubin [Mass/Vol] 0.4 mg/dL Normal 0.2-1.0 [facility] Comment on above: Performed By: #### C MP, LIPID #### [facility] [address] [address] [address] Bebeto Alvarado Calcium [Mass/Vol] 8.8 mg/dL Normal 8.5-10.1 [facility] Comment on above: Performed By: #### C MP, LIPID #### [facility] [address] [address] [address] Bebeto Alvarado Chloride [Moles/Vol] 106 mmol/L Normal 98-107 [facility] Comment on above: Performed By: #### C MP, LIPID #### [facility] [address] [address] [address] Bebeto Alvarado CO2 [Moles/Vol] 27.0 mmol/L Normal 21.0-32.0 [facility] Comment on above: Performed By: #### C MP, LIPID #### [facility] [address] [address] [address] Bebeto Alvarado Creatinine [Mass/Vol] 0.97 mg/dL Normal 0.55-1.02 [facility] Comment on above: Performed By: #### C MP, LIPID #### [facility] [address] [address] [address] Bebeto Alvarado EGFR-AF CYMRO >60 Normal >=60 [facility] Comment on above: Performed By: #### C MP, LIPID #### [facility] [address] [address] [address] Bebeto Alvarado EGFR-NON AF CYMRO 59 mL/min/1.73m2 Critically low >=60 [facility] Comment on above: Performed By: #### C MP, LIPID #### [facility] [address] [address] [address] Bebeto Alvarado Globulin (S) [Mass/Vol] 3.4 g/dL Normal [facility] Comment on above: Performed By: #### C MP, LIPID #### [facility] [address] [address] [address] Bebeto Alvarado Glucose [Mass/Vol] 103 mg/dL Normal 74-106 [facility] Comment on above: Performed By: #### C MP, LIPID #### [facility] [address] [address] [address] Bebeto Alvarado Potassium [Moles/Vol] 3.8 mmol/L Normal 3.5-5.1 [facility] Comment on above: Performed By: #### C MP, LIPID #### [facility] [address] [address] [address] Bebeto Alvarado Protein [Mass/Vol] 7.2 g/dL Normal 6.4-8.2 [facility] Comment on above: Performed By: #### C MP, LIPID #### [facility] [address] [place] [address] Dr. Bebeto Alvarado Sodium [Moles/Vol] 141 mmol/L Normal 136-145 [facility] Comment on above: Performed By: #### C MP, LIPID #### [facility] [address] [place] [address] Dr. Bebeto Alvarado Urea nitrogen [Mass/Vol] 11.0 mg/dL Normal 7.0-18.0 [facility] Comment on above: Performed By: #### C MP, LIPID #### [facility] [address] [place] [address] Dr. Bebeto Alvarado Urea nitrogen/Creatinine [Mass ratio] 11.3 mg/mg Normal [facility] Comment on above: Performed By: #### C MP, LIPID #### [facility] [address] [place] [address] Dr. Bebeto Alvardao URIC ACID SERUMon 11-21-2021 Urate [Mass/Vol] 7.3 mg/dL Critically high 2.6-6.0 [facility] Comment on above: Performed By: #### A 1C #### [facility] [address] [place] [address] Dr. Bebeto Alvarado VITAMIN B12on 11-21-2021 Cobalamin (Vitamin B12) [Mass/Vol] 2123.0 pg/mL Critically high 193.0-986.0 [facility] Comment on above: Performed By: #### A 1C #### [facility] [address] [place] [address] Dr. Bebeto Alvarado Physician Referralon 022 Physician Referral [id number] Normal [facility] KNEE RIGHT 1 OR 2 VWSon 11-0 KNEE RIGHT 1 OR 2 VWS [facility] Department of Radiology [address] [place] [address] ======== Patient Name: MICHELLE BE [...] , Exam: KNEE RIGHT 1 OR 2 [facility] ======== KNEE RIGHT 1 OR [...] Electronically signed by:Debra Del Cid. Transcribed by: [email or web address], User Resident: Electronically Signed by: DEBRA DEL CID @ 02/08/2019 11:16 AM Normal [facility] Comment on above: Order Comment: , Vie ws (X-RAY, KNEE): Radiologic Protocol , Weight Bearing?: N , With or Without Brace/Cast/Collar: With , Views (X-RAY, KNEE): Radiologic Protocol , Weight Bearing?: N , With or Without Brace/Cast/Collar: With , , , Ordering Provider - AHSAN BINGHAM PA-C , KNEE RIGHT 1 OR 2 VWSon KNEE RIGHT 1 OR 2 [facility] Department of Radiology [address] [place] [phone] ======== Patient Name: MICHELLE BE : [...] complications. Electronically signed by:Tomasz Stoll. Transcribed by: [email or web address], User Resident: Electronically Signed by: TOMASZ STOLL @ 12/07/2018 11:14 AM Normal [facility] Comment on above: Order Comment: , Vie ws (X-RAY, KNEE): Radiologic Protocol , Weight Bearing?: N , With or Without Brace/Cast/Collar: With , Views (X-RAY, KNEE): Radiologic Protocol , Weight Bearing?: N , With or Without Brace/Cast/Collar: With , , , Ordering Provider - AHSAN BINGHAM PA-C , KNEE RIGHT 1 OR 2 [facility] KNEE RIGHT 1 OR 2 [facility] Department of Radiology [address] [place] [phone] ======== Patient Name: MICHELLE BE : 1960 Sex: F Age: Race: White Pt. 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 Transcribed by: [email or web address], User Resident: Electronically Signed by: ANUP ELLISON @ 10/06/2018 02:48 PM Normal [facility] Comment on above: Order Comment: , Mabel ws (X-RAY, KNEE): Radiologic Protocol , Weight Bearing?: N , With or Without Brace/Cast/Collar: With , Views (X-RAY, KNEE): Radiologic Protocol , Weight Bearing?: N , With or Without Brace/Cast/Collar: With , , , Ordering Provider - AHSAN BINGHAM PA-C , KNEE RIGHT 1 OR 2 VWSon 08-05 KNEE RIGHT 1 OR 2 VWS [facility] Department of Radiology [address] [place] [phone] ======== Patient Name: MICHELLE BE : 1960 Sex: F Age: Race: White Pt. Location: Patient Status: Ordered Date: 08/26/2018 2:30:00 PM Completed Date: 08/26/2018 02:54 PM Requesting Provider: AHSAN BINGHAM Attending Provider: Report Copy To: Signs & Symptoms: S82.001A Unsp fracture of right patella, init for clos fx I10 History: [place] Comments: , , , Ordering Provider - [...] effusion Electronically signed by:Anup Ellison. Transcribed by: [email or web address], User Resident: Electronically Signed by: ANUP ELLISON @ 08/26/2018 04:56 PM Normal [facility] Comment on above: Order Comment: , Vie ws (X-RAY, KNEE): Radiologic Protocol , Weight Bearing?: N , With or Without Brace/Cast/Collar: With , Views (X-RAY, KNEE): Radiologic Protocol , Weight Bearing?: N , With or Without Brace/Cast/Collar: With , , , Ordering Provider - AHSAN BINGHAM PA-C , KNEE RIGHT 1 OR 2 [facility] 07-06 KNEE RIGHT 1 OR 2 [facility] Department of Radiology [address] [place] [phone] ======== Patient Name: MICHELLE BE : 1960 Sex: F Age: Race: White Pt. Location: Patient Status: Ordered Date: 07/29/2018 2:10:00 PM Completed Date: 07/29/2018 02:12 PM Requesting Provider: AHSAN BINGHAM Attending Provider: Report Copy To: Signs & Symptoms: S82.001A Unsp fracture of right patella, init for clos fx I10 History: [place] Comments: , , , Ordering Provider - [...] compartment Electronically signed by:Anup Ellison. Transcribed by: [email or web address], User Resident: Electronically Signed by: ANUP ELLISON @ 07/29/2018 03:41 PM Normal [facility] Comment on above: Order Comment: , Mabel ws (X-RAY, KNEE): Radiologic Protocol , Weight Bearing?: N , With or Without Brace/Cast/Collar: With , Views (X-RAY, KNEE): Radiologic Protocol , Weight Bearing?: N , With or Without Brace/Cast/Collar: With , , , Ordering Provider - AHSAN BINGHAM PA-C , KNEE RIGHT 3 [facility] 9 KNEE RIGHT 3 [facility] Department of Radiology [address] [place] [phone] ======== Patient Name: MICHELLE BE : 1960 Sex: F Age: Race: White Pt. Location: 84 Patient Status: Ordered Date: 07/15/2018 8:45:00 AM Completed Date: 07/15/2018 08:47 AM Requesting Provider: AHSAN BINGHAM Attending Provider: Report Copy To: Signs & Symptoms: S82.001A Unsp fracture of right patella, init for clos fx I10 History: [place] Comments: , , , Ordering Provider - AHSAN BINGHAM PA-C , Exam: KNEE RIGHT 3 [facility] ======== KNEE RIGHT 3 S 07/15/2018 [...] knee Electronically signed by:Anup Ellison. Transcribed by: [email or web address], User Resident: Electronically Signed by: ANUP ELLISON @ 07/15/2018 03:31 PM Normal [facility] Comment on above: Order Comment: , Mabel ws (X-RAY, KNEE): Radiologic Protocol , Weight Bearing?: N , With or Without Brace/Cast/Collar: With , Views (X-RAY, KNEE): Radiologic Protocol , Weight Bearing?: N , With or Without Brace/Cast/Collar: With , , , Ordering Provider - AHSAN BINGHAM PA-C , Operative Reporton 9 Operative Report MR#: [id number] [facility] Pt. Name: Michelle Be Room #: [...] Duarte MD Date Trans: 07/03/2018 04:28 A/terry [id number] Normal [facility] *ANAEROBIC CULTUREon 019 *ANAEROBIC CULTURE Clinical Report: (D) Specimen/Source: SWAB/RT KNEE Collected: 07/02/2018 13:53 Status: Final Last Updated: 07/07/2018 08:02 CULT RES (Final) No Anaerobes Isolated 5 Days Normal [facility] Comment on above: Performed By: #### 3 0312 #### [address] *WOUND CULTUREon 07-02-2018 *WOUND CULTURE Clinical Report: (D) Specimen/Source: WOUND/INTRAOP SPEC Collected: 07/02/2018 13:53 Status: Final Last Updated: 07/07/2018 10:13 (1) #1 RT KNEE GRAM (Final) Rare Polys No Bacteria Seen CULT RES (Final) No Growth Day 5 Normal [facility] Comment on above: Order Comment: #1 RT KNEE Performed By: #### 3 0343 #### [address] KNEE RIGHT 1 OR 2 [facility] 06-05 KNEE RIGHT 1 OR 2 [facility] Department of Radiology [address] [place] [address] ======== Patient Name: MICHELLE BE [...] Electronically signed by:Debra Del Cid. Transcribed by: [email or web address], User Resident: Electronically Signed by: DEBRA DEL CID @ 07/02/2018 02:03 PM Normal [facility] Comment on above: Order Comment: ORIF VS PERCUTANEOUS FIXATION RIGHT PATELLA POC GLUCOSE LABon 07-02-2018 Glucose [Mass/Vol] 108 mg/dL High 70-100 [facility] Comment on above: Performed By: #### 8 5499 #### [facility] [address] [place] [address], [facility] APTTon 06-30-2018 aPTT Coag (Bld) [Time] 30.6 s Normal 25.0-35.0 [facility] Comment on above: Result Comment: ALL [...] THIS PURPOSE. Performed By: #### 5 6101, 04367 #### [facility] [address] [place] [address], [facility] BASIC METABOLIC PANELon - Calcium [Mass/Vol] 9.7 mg/dL Normal 8.6-10.3 [facility] Comment on above: Performed By: #### 0 0071 #### [facility] [address] [place] [address], [facility] Chloride [Moles/Vol] 102 mmol/L Normal 98-107 [facility] Comment on above: Performed By: #### 0 0071 #### [facility] [address] [place] [address], [facility] CO2 [Moles/Vol] 28 mmol/L Normal 21-31 [facility] Comment on above: Performed By: #### 0 0071 #### [facility] [address] [place] [address], [facility] Creatinine [Mass/Vol] 1.20 mg/dL Normal 0.60-1.20 [facility] Comment on above: Performed By: #### 0 0071 #### [facility] [address] [place] [address], [facility] GFR/1.73 sq M predicted among blacks MDRD (S/P/Bld) [Vol rate/Area] 56 ml/min/1.73sq m Abnormal >60 [facility] Comment on above: Performed By: #### 0 0071 #### [facility] [address] [place] [id number], [facility] GFR/1.73 sq M predicted among non-blacks MDRD (S/P/Bld) [Vol rate/Area] 47 ml/min/1.73sq m Abnormal >60 [facility] Comment on above: Performed By: #### 0 0071 #### [facility] [address] Glucose [Mass/Vol] 97 mg/dL Normal 70-100 [facility] Comment on above: Performed By: #### 0 0071 #### [facility] [address] Potassium [Moles/Vol] 4.1 mmol/L Normal 3.5-5.1 [facility] Comment on above: Performed By: #### 0 0071 #### [facility] [address] Sodium [Moles/Vol] 137 mmol/L Normal 136-145 [facility] Comment on above: Performed By: #### 0 0071 #### [facility] [address] Urea nitrogen [Mass/Vol] 19 mg/dL Normal 7-25 [facility] Comment on above: Performed By: #### 0 0071 #### [facility] [address] CBC W/DIFFon 06-30-2018 ABS BASOPHILS 0.1 10*3/uL Normal 0.0-0.2 [facility] Comment on above: Performed By: #### 5 3 #### [facility] [address] ABS IMM GRANS 0.0 10*3/uL Normal 0.0-0.2 [facility] Comment on above: Performed By: #### 5 102 #### [facility] [address] ABS NEUTROPHILS 6.4 10*3/uL Normal 1.6-7.6 [facility] Comment on above: Performed By: #### 5 102 #### [facility] [address] [place] [address], [facility] Basophils/100 WBC (Bld) 0.7 % Normal 0.0-1.0 [facility] Comment on above: Performed By: #### 5 0103 #### [facility] [address] [place] [address], [facility] Eosinophils (Bld) [#/Vol] 0.2 10*3/uL Normal 0.0-0.5 [facility] Comment on above: Performed By: #### 5 0103 #### [facility] [address] [place] [address], [facility] Eosinophils/100 WBC (Bld) 1.5 % Normal 0.0-6.0 [facility] Comment on above: Performed By: #### 5 3 #### [facility] [address] [facility] Erythrocyte distribution width (RBC) [Ratio] 14.4 % Normal 11.5-15.0 [facility] Comment on above: Performed By: #### 5 0103 #### [facility] [address] Hematocrit (Bld) [Volume fraction] 40.6 % Normal 36.0-45.0 [facility] Comment on above: Performed By: #### 5 0103 #### [facility] [address] [place] [address], [facility] Hemoglobin (Bld) [Mass/Vol] 13.3 g/dL Normal 12.0-15.0 [facility] Comment on above: Performed By: #### 5 0103 #### [facility] [address] [place] [address], [facility] IMMATURE GRANS 0.4 % Normal 0.0-1.0 [facility] Comment on above: Performed By: #### 5 0103 #### [facility] [address] [facility] [address] Lymphocytes (Bld) [#/Vol] 2.6 10*3/uL Normal 1.2-4.0 [facility] Comment on above: Performed By: #### 5 0103 #### [facility] [address] [place] [address], [facility] Lymphocytes/100 WBC (Bld) 26.5 % Normal 20.0-45.0 [facility] Comment on above: Performed By: #### 5 3 #### [facility] [address] [place] [address], [facility] MCH (RBC) [Entitic mass] 27.4 pg Normal 27.0-33.0 [facility] Comment on above: Performed By: #### 5 3 #### [facility] [address] MCHC (RBC) [Mass/Vol] 32.8 g/dL Normal 32.0-35.0 [facility] Comment on above: Performed By: #### 3 #### [facility] [address] [place] [address], [facility] MCV (RBC) [Entitic vol] 83.5 fL Normal 82.0-98.0 [facility] Comment on above: Performed By: #### 3 #### [facility] [address] [place] [address], [facility] Monocytes (Bld) [#/Vol] 0.5 10*3/uL Normal 0.1-1.0 [facility] Comment on above: Performed By: #### 5 3 #### [facility] [address] [place] [address], [facility] MONOS 5.0 % Normal 5.0-12.0 [facility] Comment on above: Performed By: #### 5 3 #### [facility] [address] [place] [address], [facility] Neutrophils/100 WBC (Bld) 65.9 % Normal 40.0-72.0 [facility] Comment on above: Performed By: #### 5 0103 #### [facility] [address] [facility] [place] [address], [facility] Nucleated RBC/100 WBC (Bld) [Ratio] 0 % Normal 0-0 [facility] Comment on above: Performed By: #### 5 0103 #### [facility] [address] [place] [address], [facility] PLAT CNT 290 10*3/uL Normal 150-400 [facility] Comment on above: Performed By: #### 5 0103 #### [facility] [address] [place] [address], [facility] RBC (Bld) [#/Vol] 4.86 10*6/uL Normal 3.80-5.00 [facility] Comment on above: Performed By: #### 5 0103 #### [facility] [address] [facility] [place] [address], [facility] WBC (Bld) [#/Vol] 9.68 10*3/uL Normal 4.00-10.60 [facility] Comment on above: Performed By: #### 5 3 #### [address] [address], [facility] KNEE RIGHT 1 OR 2 VWSon 06-05 KNEE RIGHT 1 OR 2 VWS [facility] Department of Radiology [address] [place] [phone] ======== Patient Name: MICHELLE BE : 1960 Sex: F Age: Race: White Pt. 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 Transcribed by: [email or web address], User Resident: Electronically Signed by: DEBRA DEL CID @ 06/30/2018 11:52 AM Normal [facility] Comment on above: Order Comment: , Rossie ws (X-RAY, KNEE): Radiologic Protocol , Weight Bearing?: N , With or Without Brace/Cast/Collar: With , Views (X-RAY, KNEE): Radiologic Protocol , Weight Bearing?: N , With or Without Brace/Cast/Collar: With , , , Ordering Provider - AHSAN BINGHAM PA-C , PROTHROMBIN TIMEon 9 INR Coag (PPP) [Relative time] 0.98 {INR} Normal 0.91-1.16 [facility] Comment on above: Result Comment: ACCC [...] CHEST 1995;108:231S-246S. Performed By: #### 5 6101, [address] #### [place] [address] [address] PT Coag (PPP) [Time] 13.0 s Normal 12.3-14.8 [facility] Comment on above: Result Comment: ALL RESULTS MUST BE INTERPRETED WITH RESPECT TO BLOOD DRAWING ARTIFACT OR DILUTION ERROR OF ANTICOAGULANT AT THE TIME OF SAMPLING. Performed By: #### 5 6101, 25285 #### [address] [address], [facility] KNEE RIGHT 3 [facility] 9 KNEE RIGHT 3 [facility] Department of Radiology [address] [place] [phone] ======== Patient Name: MICHELLE BE : [...] ZHANG PA-C , Exam: KNEE RIGHT 3 [facility] ======== KNEE RIGHT 3 [facility] 06/15/2018 1:34 PM EDT SIGNS AND [...] effusion Electronically signed by:Anup Ellison. Transcribed by: [email or web address], User Resident: Electronically Signed by: ANUP ELLISON @ 06/15/2018 03:50 PM Normal [facility] Comment on above: Order Comment: , Isaiah ght Bearing?: Y , Weight Bearing?: Y , , , Ordering Mariela ZHANG PA-C , Vital Signs Date Time Vital Sign Value Performing Clinician Facility 08-16-2024 11:25-0400 Body mass index (BMI) [Ratio] 48.23 kg/m2 Adelaida Carrion [employer] Work Phone: [facility] 08-16-2024 11:25-0400 Body temperature 98.49 [degF] Adelaida Carrion [employer]AL[employer]ER Work Phone: [facility] 08-16-2024 11:25-0400 Body weight 127.46 kg Adelaida Carrion [employer] Work Phone: [facility] 08-16-2024 11:25-0400 Diastolic blood pressure 82 mm[Hg] Adelaida Carrion [employer]ER Work Phone: [facility] 08-16-2024 11:25-0400 Heart rate 67 /min Adelaida Carrion [employer]ER Work Phone: [facility] 08-16-2024 11:25-0400 Respiratory rate 18 /min Adelaida Aichholz [employer] Work Phone: [facility] 08-16-2024 11:25-0400 SaO2% (BldA) [Mass fraction] 97 % Adelaida Aichholz [employer]ER Work Phone: [facility] 08-16-2024 11:25-0400 Systolic blood pressure 120 mm[Hg] Adelaida Aichholz [employer]AL[employer]ER Work Phone: [facility] 07-27-2024 11:16-0400 Body mass index (BMI) [Ratio] 50.67 kg/m2 Adelaida Aichholz [employer] Work Phone: [facility] 07-27-2024 11:16-0400 Body temperature 98.8 [degF] Adelaida Aichholz [employer]AL[employer]ER Work Phone: [facility] 07-27-2024 11:16-0400 Body weight 133.9 kg Adelaida Aichholz [employer]ER Work Phone: [facility] 07-27-2024 11:16-0400 Diastolic blood pressure 86 mm[Hg] Adelaida Aichholz SCAL[employer]ER Work Phone: [facility] 07-27-2024 11:16-0400 Heart rate 82 /min Adelaida Aichholz [employer]ER Work Phone: [facility] 07-27-2024 11:16-0400 Respiratory rate 24 /min Adelaida Aichholz [employer]AL[employer]ER Work Phone: [facility] 07-27-2024 11:16-0400 SaO2% (BldA) [Mass fraction] 97 % Adelaida Aichholz [employer]ER Work Phone: [facility] 07-27-2024 11:16-0400 Systolic blood pressure 124 mm[Hg] Adelaida Aichholz [employer]AL[employer]ER Work Phone: [facility] 07-26-2024 10:48-0400 Body height 162.6 cm Juany REDDY Work Phone: [facility] 07-26-2024 10:48-0400 Body mass index (BMI) [Ratio] 50.98 kg/m2 Juany Lowe PA Work Phone: [facility] 07-26-2024 10:48-0400 Body weight 134.72 kg Juany Lowe PA Work Phone: [facility] 07-26-2024 10:48-0400 Diastolic blood pressure 84 mm[Hg] Juany Lowe PA Work Phone: [facility] 07-26-2024 10:48-0400 Systolic blood pressure 126 mm[Hg] Juany Lowe PA Work Phone: [facility] 05-24-2024 08:19-0500 Body height 162.6 cm Juany Lowe PA Work Phone: [facility] 05-24-2024 08:19-0500 Body mass index (BMI) [Ratio] 50.29 kg/m2 Juany Lowe PA Work Phone: [facility] 05-24-2024 08:19-0500 Body weight 132.9 kg Juany Lowe PA Work Phone: [facility] 05-24-2024 08:19-0500 Diastolic blood pressure 72 mm[Hg] Juany Lowe PA Work Phone: [facility] 05-24-2024 08:19-0500 Heart rate 62 /min Juany Lowe PA Work Phone: [facility] 05-24-2024 08:19-0500 Respiratory rate 16 /min Juany Lowe PA Work Phone: [facility] 05-24-2024 08:19-0500 SaO2% (BldA) [Mass fraction] 100 % Juany Lowe PA Work Phone: [facility] 05-24-2024 08:19-0500 Systolic blood pressure 110 mm[Hg] Juany Lowe PA Work Phone: [facility] 05-12-2024 10:04-0500 Body height 162.6 cm Adelaida Carrion SCALEMAKER Work Phone: [facility] 05-12-2024 10:04-0500 Body mass index (BMI) [Ratio] 49.16 kg/m2 Adelaida Yinghholz SCALEMAKER Work Phone: [facility] 05-12-2024 10:04-0500 Body temperature 98.49 [degF] Adelaida Yinghholz SCALEMAKER Work Phone: [facility] 05-12-2024 10:04-0500 Body weight 129.91 kg Adelaida Aichholz SCALEMAKER Work Phone: [facility] 05-12-2024 10:04-0500 Diastolic blood pressure 78 mm[Hg] Adelaida Aichholz SCALEMAKER Work Phone: [facility] 05-12-2024 10:04-0500 Heart rate 80 /min Adelaida Yinghholz SCALEMAKER Work Phone: [facility] 05-12-2024 10:04-0500 Respiratory rate 20 /min Adelaida Yinghholz SCALEMAKER Work Phone: [facility] 05-12-2024 10:04-0500 SaO2% (BldA) [Mass fraction] 98 % Adelaida Yinghholz SCALEMAKER Work Phone: [facility] 05-12-2024 10:04-0500 Systolic blood pressure 118 mm[Hg] Adelaida Merryholz SCALEMAKER Work Phone: [facility] 03-16-2024 09:53-0500 Body height 162.6 cm Adelaida Yinghholz SCALEMAKER Work Phone: [facility] 03-16-2024 09:53-0500 Body mass index (BMI) [Ratio] 48.41 kg/m2 Adelaida Aichholz SCALEMAKER Work Phone: [facility] 03-16-2024 09:53-0500 Body temperature 98.01 [degF] Adelaida Yinghholz SCALEMAKER Work Phone: [facility] 03-16-2024 09:53-0500 Body weight 127.91 kg Adelaida Aichholz SCALEMAKER Work Phone: [facility] 03-16-2024 09:53-0500 Diastolic blood pressure 80 mm[Hg] Adelaida Carrion SCALEMAKER Work Phone: [facility] 03-16-2024 09:53-0500 Heart rate 79 /min Adelaida Carrion SCALEMAKER Work Phone: [facility] 03-16-2024 09:53-0500 Respiratory rate 18 /min Adelaida Carrion SCALEMAKER Work Phone: [facility] 03-16-2024 09:53-0500 SaO2% (BldA) [Mass fraction] 98 % Adelaida Carrion SCALEMAKER Work Phone: [facility] 03-16-2024 09:53-0500 Systolic blood pressure 120 mm[Hg] Adelaida Iglesiasz SCALEMAKER Work Phone: [facility] 03-10-2024 15:20-0500 Body height 162.6 cm Rachel Mitchell PA Work Phone: [facility] 03-10-2024 15:20-0500 Body mass index (BMI) [Ratio] 48.41 kg/m2 Rachel Mitchell PA Work Phone: [facility] 03-10-2024 15:20-0500 Body weight 127.91 kg Rachel Mitchell PA Work Phone: [facility] 03-10-2024 15:20-0500 Diastolic blood pressure 68 mm[Hg] Rachel Mitchell PA Work Phone: [facility] 03-10-2024 15:20-0500 Heart rate 74 /min Rachel Mitchell PA Work Phone: [facility] 03-10-2024 15:20-0500 Respiratory rate 16 /min Rachel Mitchell PA Work Phone: [facility] 03-10-2024 15:20-0500 SaO2% (BldA) [Mass fraction] 98 % Rachel Mitchell PA Work Phone: [facility] 03-10-2024 15:20-0500 Systolic blood pressure 102 mm[Hg] Rachel Stephen PA Work Phone: [facility] 03-01-2024 12:48-0500 Body height 162.6 cm Juany Lowe PA Work Phone: [facility] 03-01-2024 12:48-0500 Body mass index (BMI) [Ratio] 48.92 kg/m2 Juany Lowe PA Work Phone: [facility] 03-01-2024 12:48-0500 Body weight 129.28 kg Juany Lowe PA Work Phone: [facility] 03-01-2024 12:48-0500 Diastolic blood pressure 88 mm[Hg] Juany Lowe PA Work Phone: [facility] 03-01-2024 12:48-0500 Systolic blood pressure 140 mm[Hg] Juany Lowe PA Work Phone: [facility] 02-16-2024 11:18-0500 Body height 162.6 cm Adelaida Kelsiez SCALEMAKER Work Phone: [facility] 02-16-2024 11:18-0500 Body mass index (BMI) [Ratio] 50.77 kg/m2 Adelaida Aichholz SCALEMAKER Work Phone: [facility] 02-16-2024 11:18-0500 Body temperature 98.49 [degF] Adelaida Yinghkushz SCALEMAKER Work Phone: [facility] 02-16-2024 11:18-0500 Body weight 134.17 kg Adelaida Aichholz SCALEMAKER Work Phone: [facility] 02-16-2024 11:18-0500 Diastolic blood pressure 82 mm[Hg] Adelaida Aichholz SCALEMAKER Work Phone: [facility] 02-16-2024 11:18-0500 Heart rate 69 /min Adelaida Aichholz SCALEMAKER Work Phone: [facility] 02-16-2024 11:18-0500 Respiratory rate 20 /min Adelaida Aichholz SCALEMAKER Work Phone: [facility] 02-16-2024 11:18-0500 SaO2% (BldA) [Mass fraction] 98 % Adelaida Iglesiasz SCALEMAKER Work Phone: [facility] 02-16-2024 11:18-0500 Systolic blood pressure 122 mm[Hg] Adelaida Iglesiasz SCALEMAKER Work Phone: [facility] 01-28-2024 13:46-0400 Body height 162.6 cm Adelaidamonse Iglesiasz SCALEMAKER Work Phone: [facility] 01-28-2024 13:46-0400 Body mass index (BMI) [Ratio] 48.99 kg/m2 Adelaida Iglesiasz SCALEMAKER Work Phone: [facility] 01-28-2024 13:46-0400 Body temperature 98.71 [degF] Adelaida Sousabob SCALEMAKER Work Phone: [facility] 01-28-2024 13:46-0400 Body weight 129.46 kg Adelaida Iglesiasz SCALEMAKER Work Phone: [facility] 01-28-2024 13:46-0400 Diastolic blood pressure 78 mm[Hg] Adelaida Iglesiasz SCALEMAKER Work Phone: [facility] 01-28-2024 13:46-0400 Heart rate 81 /min Adelaidamonse Sousakushz SCALEMAKER Work Phone: [facility] 01-28-2024 13:46-0400 Respiratory rate 18 /min Adelaida Merryholz SCALEMAKER Work Phone: [facility] 01-28-2024 13:46-0400 SaO2% (BldA) [Mass fraction] 99 % Adelaidamonse Sousaholz SCALEMAKER Work Phone: [facility] 01-28-2024 13:46-0400 Systolic blood pressure 110 mm[Hg] Adelaida Yingmarquesholz SCALEMAKER Work Phone: [facility] 01-04-2024 09:39-0400 Body height 162.6 cm Adelaida Carrion SCALEMAKER Work Phone: [facility] 01-04-2024 09:39-0400 Body mass index (BMI) [Ratio] 48.75 kg/m2 Adelaida Iglesiasz SCALEMAKER Work Phone: [facility] 01-04-2024 09:39-0400 Body temperature 97.81 [degF] Adelaida Iglesiasz SCALEMAKER Work Phone: [facility] 01-04-2024 09:39-0400 Body weight 128.82 kg Adelaida Iglesiasz SCALEMAKER Work Phone: [facility] 01-04-2024 09:39-0400 Diastolic blood pressure 78 mm[Hg] Adelaida Iglesiasz SCALEMAKER Work Phone: [facility] 01-04-2024 09:39-0400 Heart rate 67 /min Adelaida Iglesiasz SCALEMAKER Work Phone: [facility] 01-04-2024 09:39-0400 Respiratory rate 19 /min Adelaidamonse Iglesiasz SCALEMAKER Work Phone: [facility] 01-04-2024 09:39-0400 SaO2% (BldA) [Mass fraction] 99 % Adelaida Carrion SCALEMAKER Work Phone: [facility] 01-04-2024 09:39-0400 Systolic blood pressure 116 mm[Hg] Adelaida Iglesiasz SCALEMAKER Work Phone: [facility] 12-09-2023 10:14-0400 Body height 162.6 cm Juany Escalanter SCALEMAKER Work Phone: [facility] 12-09-2023 10:14-0400 Body mass index (BMI) [Ratio] 48.92 kg/m2 Juany Singhmor SCALEMAKER Work Phone: [facility] 12-09-2023 10:14-0400 Body weight 129.28 kg Juany Gillmor SCALEMAKER Work Phone: [facility] 12-09-2023 10:14-0400 Diastolic blood pressure 78 mm[Hg] Juany Caballero SCALEMAKER Work Phone: [facility] 12-09-2023 10:14-0400 SaO2% (BldA) [Mass fraction] 97 % Juany Caballero SCALEMAKER Work Phone: [facility] 12-09-2023 10:14-0400 Systolic blood pressure 122 mm[Hg] Juany Caballero SCALEMAKER Work Phone: [facility] 12-08-2023 15:24-0400 Body height 162.6 cm Sonam Brown SCALEMAKER Work Phone: [facility] 12-08-2023 15:24-0400 Body mass index (BMI) [Ratio] 48.92 kg/m2 Sonam Franzgel SCALEMAKER Work Phone: [facility] 12-08-2023 15:24-0400 Body weight 129.28 kg Sonam Franzgel SCALEMAKER Work Phone: [facility] 12-08-2023 15:24-0400 Diastolic blood pressure 77 mm[Hg] Sonam Franzgel SCALEMAKER Work Phone: [facility] 12-08-2023 15:24-0400 Heart rate 72 /min Sonam Franzgel SCALEMAKER Work Phone: [facility] 12-08-2023 15:24-0400 Systolic blood pressure 134 mm[Hg] Sonam Franzgel SCALEMAKER Work Phone: [facility] 05-18-2023 16:30-0500 Body height 162.6 cm Adelaida Sheyla SCALEMAKER Work Phone: [facility] 05-18-2023 16:30-0500 Body mass index (BMI) [Ratio] 47.89 kg/m2 Adelaida Sheyla SCALEMAKER Work Phone: [facility] 05-18-2023 16:30-0500 Body temperature 97.3 [degF] Adelaida Carrion SCALEMAKER Work Phone: [facility] 05-18-2023 16:30-0500 Body weight 126.55 kg Adelaida Aichholz SCALEMAKER Work Phone: [facility] 05-18-2023 16:30-0500 Diastolic blood pressure 80 mm[Hg] Adelaida Aichholz SCALEMAKER Work Phone: [facility] 05-18-2023 16:30-0500 Heart rate 76 /min Adelaida Aichholz SCALEMAKER Work Phone: [facility] 05-18-2023 16:30-0500 Respiratory rate 19 /min Adelaida Aichholz SCALEMAKER Work Phone: [facility] 05-18-2023 16:30-0500 SaO2% (BldA) [Mass fraction] 97 % Adelaida Aichholz SCALEMAKER Work Phone: [facility] 05-18-2023 16:30-0500 Systolic blood pressure 134 mm[Hg] Adelaida Aichholz SCALEMAKER Work Phone: [facility] 03-23-2023 12:10-0500 Diastolic blood pressure 98 mm[Hg] Adelaida Aichholz Work Phone: [facility] 03-23-2023 12:10-0500 Heart rate 76 /min Adelaida Aichholz Work Phone: [facility] 03-23-2023 12:10-0500 Respiratory rate 18 /min Adelaida Aichholz Work Phone: [facility] 03-23-2023 12:10-0500 SaO2% (BldA) [Mass fraction] 99 % Adelaida Aichholz Work Phone: [facility] 03-23-2023 12:10-0500 Systolic blood pressure 162 mm[Hg] Adelaida Aichholz Work Phone: [facility] 03-23-2023 10:53-0500 Body height 162.56 cm Adelaida Aichholz Work Phone: [facility] 03-23-2023 10:53-0500 Body weight 125.64 kg Adelaida Aicmarquesholz Work Phone: [facility] 12-19-2022 14:55-0400 Body height 162.56 cm Rosemary Kirkland Other [employer] Other 12-19-2022 14:55-0400 Body mass index (BMI) [Ratio] 47.85 kg/m2 Rosemary Kirkland Other [employer] Other 12-19-2022 14:55-0400 Body temperature 97.8 [degF] Rosemary Kirkland Other [employer] Other 12-19-2022 14:55-0400 Body weight 126.46 kg Rosemary Kirkland Other [employer] Other 12-19-2022 14:55-0400 Respiratory rate 20 /min Rosemary Kirkland Other [employer] Other 12-19-2022 14:55-0400 SaO2% (BldA) [Mass fraction] 95 % Rosemary Kirkland Other [employer] Other 11-20-2022 13:12-0400 Body temperature 97.7 [degF] Adelaida Aichholz Work Phone: [facility] 11-20-2022 13:12-0400 SaO2% (BldA) [Mass fraction] 96 % Adelaida Aichholz Work Phone: [facility] 11-20-2022 07:44-0400 Diastolic blood pressure 90 mm[Hg] Adelaida Aichholz Work Phone: [facility] 11-20-2022 07:44-0400 Heart rate 103 /min Adelaida Aichholz Work Phone: [facility] 11-20-2022 07:44-0400 Systolic blood pressure 152 mm[Hg] Adelaida Sheyla Work Phone: [facility] 11-19-2022 20:00-0400 Respiratory rate 18 /min Adelaida Sheyla Work Phone: [facility] 11-18-2022 15:18-0400 Body height 162.56 cm Adelaida Sheyla Work Phone: [facility] 11-17-2022 09:00-0400 Body weight 122.92 kg Adelaida Sheyla Work Phone: [facility] Encounters Encounter Date Encounter Type Care Provider Facility Start: 09-13-2024 ambulatory Eduardo Monk Facility:[facility] Start: 08-16-2024 End: 08-16-2024 Bamboo flowsheet Adelaida Carrion SCALEMAKER Work Phone: [facility] Start: 08-16-2024 End: 08-16-2024 Bamboo flowsheet Adelaida Carrion SCALEMAKER Work Phone: [facility] Start: 08-16-2024 End: 08-16-2024 Office outpatient visit 15 minutes Adelaida Carrion SCALEMAKER Work Phone: [facility] Comment on above: Primary hypertension (CMS/HCC) (Primary Dx); Bronchitis; Bilateral lower extremity edema; Morbid (severe) obesity due to excess calories (CMS/HCC); Pre-diabetes; Allergic rhinitis, unspecified seasonality, unspecified trigger; Encounter for screening mammogram for malignant neoplasm of breast; Former cigarette smoker Start: 08-16-2024 End: 08-16-2024 ambulatory ADELAIDA CARRION Not Available Start: 07-27-2024 End: 07-27-2024 Bamboo flowsheet Adelaida Carrion SCALEMAKER Work Phone: [facility] Start: 07-27-2024 End: 07-27-2024 Bamboo flowsheet Adelaida Carrion SCALEMAKER Work Phone: [facility] Start: 07-27-2024 End: 07-27-2024 Office outpatient visit 15 minutes Adelaida Sheyla SCALEMAKER Work Phone: [facility] Comment on above: Primary hypertension (CMS/HCC) (Primary Dx); Morbid (severe) obesity due to excess calories (CMS/HCC); Essential (primary) hypertension (CMS/HCC); Allergic rhinitis, unspecified; Gastro-esophageal reflux disease without esophagitis; Bilateral lower extremity edema; Bronchitis Start: 07-27-2024 End: 07-27-2024 ambulatory ADELAIDA CARRION Not Available Start: 07-26-2024 End: 07-26-2024 Bamboo [...] 07-26-2024 ambulatory JUANY LOWE Not Available Start: 07-18-2024 End: 07-18-2024 ambulatory Syeda Mancuso MD Facility: [facility] Start: 06-14-2024 End: 06-14-2024 Refill Adelaida Carrion SCALEMAKER Work Phone: [facility] Comment on above: URI, acute (Primary Dx) Start: 06-07-2024 End: 06-07-2024 Refill Juany Lowe PA Work Phone: [facility] Comment on above: Restless leg Start: 05-24-2024 End: 05-24-2024 Bamboo flowsheet Juany Lowe PA Work Phone: [facility] Start: 05-24-2024 End: 05-24-2024 Bamboo flowsheet Juany Betsey PA Work Phone: [facility] Start: 05-24-2024 End: 05-24-2024 Office outpatient visit 25 minutes Juany Betsey PA Work Phone: [facility] Comment on [...] 05-12-2024 End: 05-12-2024 Bamboo flowsheet Adelaida Carrion SCALEMAKER Work Phone: [facility] Start: 05-12-2024 End: 05-12-2024 Bamboo flowsheet Adelaida Carrion SCALEMAKER Work Phone: [facility] Start: 05-12-2024 End: 05-12-2024 Office outpatient visit 25 minutes Adelaida Carrion SCALEMAKER Work Phone: [facility] Comment on above: Primary hypertension (CMS/HCC) [...] edema Start: 05-12-2024 End: 05-12-2024 ambulatory ADELAIDA KELSIEZ Not Available Start: 05-09-2024 End: 05-09-2024 ambulatory Syeda Mancuso MD Facility: [facility] Start: 04-12-2024 End: 04-12-2024 Refill Juany REDDY Work Phone: [facility] Comment on above: Transient alteration of awareness (Primary Dx); Restless leg Start: 04-07-2024 End: 04-07-2024 Patient encounter procedure David Foster PhD Work Phone: [facility] Comment on above: Metabolic encephalop [...] 03-16-2024 End: 03-16-2024 Bamboo flowsheet Adelaida Sheyla SCALEMAKER Work Phone: [facility] Start: 03-16-2024 End: 03-16-2024 Bamboo flowsheet Adelaida Sheyla SCALEMAKER Work Phone: [facility] Start: 03-16-2024 End: 03-16-2024 Office outpatient visit 25 minutes Adelaida Sheyla SCALEMAKER Work Phone: [facility] Comment on [...] End: 03-16-2024 Telephone encounter David Norman MA [facility] Start: 03-14-2024 End: 03-14-2024 Bamboo flowsheet David Foster PhD Work Phone: [facility] Start: 03-14-2024 End: 03-14-2024 Bamboo flowsheet David Foster PhD Work Phone: [facility] Start: 03-14-2024 End: 03-14-2024 ambulatory DAVID FOSTER Not Available Start: 03-14-2024 End: 03-14-2024 Patient encounter procedure David Foster PhD Work Phone: [facility] Comment on above: Altered mental statu s, unspecified altered mental status type (Primary Dx); Memory change; Concentration deficit; 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 (CMS/HCC); PTSD (post-traumatic stress disorder) (CMS/HCC); Bipolar affective disorder, remission status unspecified (CMS/HCC); Family history of dementia Start: 03-10-2024 End: 03-10-2024 Office outpatient visit 25 minutes Rachel REDDY Work Phone: [facility] Comment on above: Altered mental statu s, unspecified altered mental status type (Primary Dx); Restless leg; 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CMS/HCC); OSMANY (obstructive sleep apnea) Start: 03-10-2024 End: 03-10-2024 ambulatory RACHEL MITCHELL Not Available Start: 03-03-2024 End: 03-07-2024 Evaluation and management of inpatient Adelaida Carrion Facility:[facility] Start: 03-02-2024 End: 03-04-2024 Clinisync Result Encounter Generic External Data Provider [facility] External Department Unsolicited Start: 03-02-2024 End: 03-04-2024 Clinisync Result Encounter Generic External Data Provider [facility] External Department Unsolicited Start: 03-02-2024 End: 03-02-2024 Refill Adelaida Carrion SCALEMAKER Work Phone: [facility] Comment on above: Yeast infection of t he skin Start: 03-01-2024 End: 03-01-2024 ambulatory JUANY LEGGETT Not Available Start: 03-01-2024 End: 03-01-2024 Office outpatient visit 25 minutes Juany REDDY Work Phone: [facility] Comment on above: Metabolic encephalop athy (Primary Dx); OSMANY (obstructive sleep apnea); Restless leg; 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 (CMS/HCC); Degeneration of intervertebral disc of lumbar region with discogenic back pain and lower extremity pain; Memory change Start: 02-28-2024 End: 02-29-2024 Refill Adelaida Carrion NP Work Phone: [facility] Comment on above: Allergic rhinitis, u nspecified Start: 02-24-2024 End: 02-24-2024 Refill Adelaida Carrion NP Work Phone: [facility] Comment on above: Essential (primary) hypertension (CMS/HCC); Allergic rhinitis, unspecified Start: 02-16-2024 End: 02-16-2024 Bamboo flowsheet Adelaida Carrion NP Work Phone: [facility] Start: 02-16-2024 End: 02-23-2024 Clinisync Result Encounter Adelaida Carrion NP Work Phone: [facility] External Department Unsolicited Start: 02-16-2024 End: 02-23-2024 Clinisync Result Encounter Adelaida Carrion NP Work Phone: [facility] External Department Unsolicited Start: 02-16-2024 End: 02-16-2024 Patient encounter procedure Adelaida Carrion NP Work Phone: [facility] Start: 02-16-2024 End: 02-16-2024 Periodic preventive med est patient 40-64yrs Adelaida Carrion NP Work Phone: [facility] Comment on above: Well woman exam with routine gynecological exam (Primary Dx); Morbid obesity ([facility]) Start: 02-16-2024 End: 02-16-2024 ambulatory ADELAIDA SHEYLA Not Available Start: 02-04-2024 End: 02-04-2024 Refill Sonam Brown SCALEMAKER Work Phone: [facility] Comment on above: Restless leg Start: 01-28-2024 End: 01-28-2024 Bamboo flowsheet Adelaida Carrion SCALEMAKER Work Phone: [facility] Start: 01-28-2024 End: 01-28-2024 Bamboo flowsheet Adelaida Carrion SCALEMAKER Work Phone: [facility] Start: 01-28-2024 End: 01-28-2024 Office outpatient visit 15 minutes Adelaida Carrion SCALEMAKER Work Phone: [facility] Comment on above: Acute cystitis witho ut hematuria (Primary Dx); Tobacco dependence; Needs flu shot; Morbid obesity ([facility]/HCC) Start: 01-28-2024 End: 01-28-2024 ambulatory ADELAIDA SHEYLA Not Available Start: 01-25-2024 End: 01-25-2024 ambulatory Syeda Mancuso MD Facility:[facility] Start: 01-21-2024 End: 01-25-2024 Clinisync Result Encounter Generic External Data Provider [facility] External Department Unsolicited Start: 01-21-2024 End: 01-25-2024 Clinisync Result Encounter Generic External Data Provider [facility] External Department Unsolicited Start: 01-05-2024 End: 01-05-2024 Clinisync Result Encounter Adelaida Sheyla SCALEMAKER Work Phone: [facility] Unsolicited Start: 01-05-2024 End: 01-05-2024 Clinisync Result Encounter Adelaida Sheyla SCALEMAKER Work Phone: [facility] Unsolicited Start: 01-04-2024 End: 01-04-2024 Bamboo flowsheet Adelaida Carrion SCALEMAKER Work Phone: [facility] Start: 01-04-2024 End: 01-04-2024 Bamboo flowsheet Adelaida Sousabob SCALEMAKER Work Phone: [facility] Start: 01-04-2024 End: 01-04-2024 Office outpatient visit 25 minutes Adelaida Sheyla SCALEMAKER Work Phone: [facility] Comment on above: Bilateral lower extr emity edema (Primary Dx); Essential (primary) hypertension (CMS/HCC); Allergic rhinitis, unspecified; OSMANY (obstructive sleep apnea); Primary hypertension (CMS/HCC); Morbid obesity (CMS/HCC) Start: 01-04-2024 End: 01-04-2024 ambulatory ADELAIDA SHEYLA Not Available Start: 12-30-2023 End: 12-30-2023 Refill Adelaida Yingmarquesbob SCALEMAKER Work Phone: [facility] Comment on above: Lower extremity elis a Start: 12-09-2023 End: 12-09-2023 Office outpatient visit 25 minutes Juany Caballero SCALEMAKER Work Phone: [employer] [address] Comment on above: OSMANY (obstructive sle ep apnea) (Primary Dx); Restless leg Start: 12-09-2023 End: 12-09-2023 ambulatory JUANY MIKEMOWilbert Not Available Start: 12-08-2023 End: 12-08-2023 ambulatory SONAM C WINDNAGEL Not Available Start: 12-08-2023 End: 12-08-2023 Office outpatient visit 25 minutes Sonam C Windnagel SCALEMAKER Work Phone: [employer] [address] Comment on above: 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CMS /HCC) (Primary Dx); Restless leg; Metabolic encephalopathy Start: 12-08-2023 End: 12-08-2023 Bamboo flowsheet Sonam C Windnagel SCALEMAKER Work Phone: [facility] [place] [address] Start: 12-08-2023 End: 12-08-2023 Bamboo flowsheet Sonam C Windnagel SCALEMAKER Work Phone: [facility] [place] [address] Start: 11-27-2023 End: 11-27-2023 Refill Adelaida Carrion SCALEMAKER Work Phone: [facility] Comment on above: Yeast infection of t he skin (Primary Dx) Start: 10-21-2023 End: 10-21-2023 ambulatory ADELAIDA AICHHOLZ Not Available Start: 10-14-2023 End: 10-14-2023 ambulatory SONAM BROWN Not Available Start: 10-05-2023 End: 10-05-2023 ambulatory ADELAIDA AICHHOLZ Not Available Start: 09-21-2023 End: 09-21-2023 ambulatory ADELAIDA AICHHOLZ Not Available Start: 05-21-2023 Refill Adelaida Sheyla SCALEMAKER Work Phone: [facility] Comment on above: Acute cystitis with hematuria (Primary Dx) Start: 05-18-2023 End: 05-18-2023 Office outpatient visit 25 minutes Adelaida Carrion SCALEMAKER Work Phone: [facility] Comment on above: Encounter for annual [...] encounter Start: 05-18-2023 Bamboo flowsheet Adelaida Carrion SCALEMAKER Work Phone: [facility] Start: 05-18-2023 Bamboo flowsheet Adelaida Carrion SCALEMAKER Work Phone: [facility] Start: 05-18-2023 End: 05-18-2023 Patient encounter procedure Adelaida Carrion NP Work Phone: 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 Facili ty:H1 Start: 08-26-2022 ambulatory NARENDRANATH LAKSHMIPATHY . Facility:[facility]1 Start: 08-08-2022 End: 08-09-2022 ambulatory RAMP ATTENDANT ADELAIDA CARRION Facility:[facility]1 Start: 07-25-2022 End: 07-26-2022 ambulatory RAMP ATTENDANT ADELAIDAMonse CARRION Facility:H1 Start: 07-15-2022 End: 07-15-2022 ambulatory NARENDRANATH LAKSHMIPATHY . Facility:[facility]1 Start: 07-11-2022 ambulatory NARENDRANATH LAKSHMIPATHY . Facility:[facility]1 Start: 06-26-2022 End: 06-27-[address] FINA NIXON . Facility:[facility]1 Start: 06-11-2022 ambulatory RAMP ATTENDANT ADELAIDA CARRION Facil ity:H1 Start: 05-21-2022 End: 06-11-2022 ambulatory RAMP ATTENDANT ADELAIDA KELSIEZ Facility:[facility]1 Start: 05-08-2022 End: 05-09-2022 ambulatory LIVIER [...] procedure SUKI ESCALANTE Facility:[facility] Procedures Date Procedure Procedure Detail Performing Clinician Start: 08-16-2024 Hemoglobin glycosyla luis antonio a1c Adelaida Sheyla SCALEMAKER Work Phone: Start: 03-02-2024 BLOOD CULTURE 1 Generic External Data Provider Start: 02-16-2024 IGP,APTIMA HPV,AGE GDLN Adelaida Sheyla SCALEMAKER Work Phone: Start: 01-28-2024 Urnls dip stick/tabl et rgnt non-auto w/o micrscp Adelaida Carrion SCALEMAKER Work Phone: Start: 01-21-2024 MHPT CULT,URINE Generic External Data Provider Start: 01-05-2024 ALL BASIC METABOLIC PANEL Adelaida Carrion SCALEMAKER Work Phone: Start: 09-18-2023 Mammography Adelaida ramos SCALEMAKER Work Phone: Start: 03-23-2023 Screening colonoscopy L oneal Sheyla Work Phone: Start: 03-23-2023 Colonoscopy Adelaida Jayden ramos SCALEMAKER Work Phone: Start: 09-15-2022 Mammography Adelaida Jayden ramos SCALEMAKER Work Phone: Start: 08-28-2022 Microscopic observat ion [Identifier] in Cervix by Cyto stain Adelaida Carrion SCALEMAKER Work Phone: Start: 07-02-2018 ANESTH KNEE AREA SURGERY CHAPARRITA HENDRICKS Start: 07-02-2018 REMOVAL OF SUPPORT IMPLANT SUKI EBRAHEIM Start: 07-02-2018 TREAT KNEECAP FRACTURE SUKI EBRAHEIM Plan of Treatment Date Care Activity Detail Author Start: 03-23-2033 Screening for malign ant neoplasm of colon [facility] Start: 08-28-2025 Screening for malign ant neoplasm of cervix [facility] Start: 02-15-2025 Medicare Annual Well ness (AWV) Medicare Annual Wellness (AWV) [facility] Start: 11-14-2024 End: 11-14-2024 Patient encounter procedure 11/14/2024 9:40 AM EDT Office Visit [facility] [address] [place] [address] Adelaida Carrion NP [address] [place] [phone] [facility] Start: 09-22-2024 End: 09-22-2024 Patient encounter procedure 09/22/2024 11:00 AM EDT Office Visit [facility] [address] [place] [address] Rachel Mitchell PA [address] [place] [address] [facility] Start: 09-17-2024 Screening for malign ant neoplasm of breast Mammogram [facility] Start: 08-16-2024 End: 08-16-2025 CT Chest for screening WO contrast CT lung screening low dose Imaging Routine Former cigarette smoker Expected: 08/16/2024 (Approximate), Expires: 08/16/2025 [facility] Comment on above: Expected: 08/16/2024 (Approximate), Expires: 08/16/2025 Start: 08-16-2024 End: 10-16-2025 MG Breast - bilateral Screening Bilateral screening mammogram Imaging Routine Encounter for screening mammogram for malignant neoplasm of breast Expected: 08/16/2024 (Approximate), Expires: 10/16/2025 [facility] Work Phone: Comment on above: Expected: 08/16/2024 (Approximate), Expires: 10/16/2025 Start: 08-16-2024 End: 08-16-2024 Patient encounter procedure [facility] Comment on above: Bronchitis (Primary Dx); Primary hypertension (CMS/HCC); Bilateral lower extremity edema; Morbid (severe) obesity due to excess calories (CMS/HCC); Pre-diabetes Start: 08-11-2024 End: 08-11-2024 Patient encounter procedure 08/11/2024 10:30 AM EDT Office Visit [facility] [address] [place] [phone] Adelaida Carrion NP [address] [place] [phone] GEETA MANDUJANO Start: 07-27-2024 End: 07-27-2024 Patient encounter procedure 07/27/2024 11:30 AM EDT Office Visit [facility] [address] [place] [address] Adelaida Carrion, BRIANA [address] [place] [phone] Primary hypertension (CMS/HCC) (Primary Dx); Morbid (severe) obesity due to excess calories (CMS/HCC) [facility] Comment on above: Primary hypertension (CMS/HCC) (Primary Dx); Morbid (severe) obesity due to excess calories (CMS/HCC) Start: 07-26-2024 End: 07-26-2024 Patient encounter procedure [facility] Comment on above: Arrived Start: 06-22-2024 End: 06-22-2024 Patient encounter procedure 06/22/2024 11:20 AM EDT [facility] [address] [place] [phone] Juany Leggett PA [address] [place], [place] [phone] [facility] [place] [address] Start: 06-15-2024 End: 06-15-2024 Patient encounter procedure 06/15/2024 9:20 AM EDT Office Visit [facility] [address] [place] [phone] Adelaida Carrion, BRIANA [address] [place] [phone] [facility] Start: 05-24-2024 End: 05-24-2024 [facility] [address] [facility] Comment on above: Arrived Start: 05-18-2024 Medicare Annual Well ness (AWV) Medicare [facility] Wellness (AWV) [facility] Start: 05-12-2024 End: 05-12-2024 [facility] Comment on above: Primary hypertension (CMS/HCC) (Primary Dx); Chronic kidney disease, stage 3a (HCC) (CMS/HCC); Morbid (severe) obesity due to excess calories (CMS/HCC); Body mass index (BMI) 45.0-49.9, adult (CMS/HCC); OSMANY (obstructive sleep apnea); Hemiparesis, right ([facility]); Gastroesophageal reflux disease, unspecified whether esophagitis present; Metabolic encephalopathy Start: 04-07-2024 End: 04-07-2024 Patient encounter procedure 04/07/2024 12:30 PM EST Office Visit [facility] [address] [address] [facility] Start: 04-04-2024 End: 04-04-2024 Patient encounter procedure 04/04/2024 1:20 PM EST Office Visit [facility] [address] [place] [address] Adelaida Carrion NP [address] [place] [address] [facility] Start: 03-22-2024 End: 03-22-2024 Clinical Support 03/22/2024 10:00 AM EST Clinical Support [facility] [address] [facility] [place] [phone] [facility] [address] Start: 03-16-2024 End: 03-16-2024 Patient encounter procedure [facility] Comment on above: Metabolic encephalop athy (Primary Dx); OSMANY (obstructive sleep apnea); Morbid obesity ([facility]); Bilateral lower extremity edema; Tobacco dependence; Bipolar disorder with severe depression ([facility]); At risk for polypharmacy; Anxiety Start: 03-14-2024 End: 03-14-2024 Patient encounter procedure 03/14/2024 10:00 AM EST Office Visit [facility] [address] [address] David Foster, PhD [address] [place], [place] [phone] [facility] Start: 03-11-2024 End: 03-11-2025 EEG 2 Hour Routine EEG 2 Hour Routine Neurology Routine Altered mental status, unspecified altered mental status type Expected: 03/11/2024 (Approximate), Expires: 03/11/2025 [facility] Work Phone: Comment on above: Expected: 03/11/2024 (Approximate), Expires: 03/11/2025 Start: 03-10-2024 End: 03-10-2024 Patient encounter procedure 03/10/2024 3:40 PM EST Office Visit [facility] [address] [place] [address] Rachel Mitchell PA [address] [place] [address] [facility] Start: 03-01-2024 End: 03-01-2024 Patient encounter procedure 03/01/2024 12:00 PM EST Office Visit [facility] [place] [address] [facility] [place] [phone] Juany Leggett PA [address] [place] [address] [facility] [place] [facility] Start: 02-29-2024 End: 02-29-2024 Patient encounter procedure 02/29/2024 2:40 PM EST Office Visit [facility] [place] [facility] [address] [place] [phone] Sonam Brown, SCALEMAKER [address] [place] [address] [facility] [place] [facility] Start: 02-16-2024 End: [...] procedure 02/16/2024 11:30 AM EST [facility] [address] [place] [address] Adelaida Carrion NP [address] [place] [address] [facility] Start: 02-04-2024 Influenza vaccination Influenza Vacc ine (#1) [facility] Comment on above: Postponed from 12/05 (Patient Does Not Have Time) Start: 01-28-2024 End: 01-27-2025 URINARY TRACT INFECTION (HTRX) URINARY TRACT INFECTION (HTRX) Lab Routine Acute cystitis without hematuria Expected: 01/28/2024 (Approximate), Expires: 01/27/2025 [facility] Work Phone: Comment on above: Expected: 01/28/2024 (Approximate), Expires: 01/27/2025 Start: 01-28-2024 End: 01-28-2024 Patient encounter procedure [facility] Comment on above: Tobacco dependence ( Primary Dx) Start: 01-04-2024 End: 01-03-2025 Basic metabolic 1998 panel - Serum or Plasma Basic metabolic panel Lab Routine Bilateral lower extremity edema Expected: 01/04/2024 (Approximate), Expires: 01/03/2025 [facility] Work Phone: Comment on above: Expected: 01/04/2024 (Approximate), Expires: 01/03/2025 Start: 01-04-2024 End: 01-04-2024 Patient encounter procedure [facility] Comment on above: Essential (primary) hypertension (CMS/HCC); Allergic rhinitis, unspecified Start: 12-09-2023 End: 12-09-2023 Patient encounter procedure 12/09/2023 10:30 AM EDT Office Visit [facility] [place] [address] [place] [phone] Juany Caballero NP [address] [place], [place] [facility] [place] [address] Start: 12-08-2023 End: 12-08-2023 Patient encounter procedure 12/08/2023 3:20 PM EDT [facility] [address] [facility] [address] [place] [phone] Sonam Brown NP [address] [place] [address] [facility] Start: 09-16-2023 Screening for malign ant neoplasm of breast Mammogram [facility] Start: 08-17-2023 End: 08-17-2023 Patient encounter procedure 08/17/2023 9:20 AM EDT Office Visit [facility] [address] [place] [address] Adelaida Carrion NP [address] [place] [phone] [facility] Start: 05-22-2023 End: 05-22-2023 Patient encounter procedure 05/22/2023 8:45 AM EST Office Visit [facility] [address] [facility] [address] [place] [address] Travon Hines PA [address] [email or web address] [address] [place] [address] [facility] Start: 05-18-2023 End: 05-18-2023 Patient encounter procedure 05/18/2023 4:30 PM EST Office Visit [facility] [address] [place] [address] Adelaida Carrion NP [address] [place] [address] Arrived [facility] Comment on above: Arrived Start: 05-18-2023 End: 05-18-2024 XR Hip - left 3 Views XR hip left 2 or 3 views Imaging Routine Left hip pain Expected: 05/18/2023 (Approximate), Expires: 05/18/2024 [facility] Work Phone: Comment on above: Expected: 05/18/2023 (Approximate), Expires: 05/18/2024 Start: 03-23-2023 [facility] Start: 11-20-2022 [facility] Start: 11-18-2022 Referral to clinical pet groomer [facility] Start: 11-17-2022 Hospital admission [facility] Start: 11-17-2022 [facility] Start: 12-06-1991 Screening for malign ant neoplasm of cervix HPV/Cotest [facility] Start: 1960 Medicare Annual Well ness (AWV) Medicare Annual Wellness (AWV) [facility] Start: 1960 Screening for malign ant neoplasm of colon [facility] BLOOD CULTURE 1 BLOOD CULTURE 1 Lab Routine 03/02/2024 3:20 AM EST [facility] Patient Education [facility] Work Phone: Patient referral [facility] Work Phone: [facility] Immunizations Immunization Date Immunization Notes Care Provider Parker arnold 01-28-2024 Influenza, injectabl e, Madin [place] Canine Kidney, preservative free, quadrivalent Adelaida Aichholz SCALEMAKER Work Phone: [facility] 08-17-2023 zoster vaccine recombinant Adelaida Aichholz SCALEMAKER Work Phone: [facility] 02-13-2023 influenza, injectabl e, quadrivalent, preservative free Adelaida Aichholz SCALEMAKER Work Phone: [facility] 02-13-2023 SARS-COV-2 (COVID-19 ) vaccine, mRNA, spike protein, LNP, PF, 50 mcg/0.5 mL Adelaida Aichholz SCALEMAKER Work Phone: [facility] 02-13-2023 influenza virus vaccine, unspecified formulation Adelaida Aichholz SCALEMAKER Work Phone: [facility] 02-19-2022 diphtheria, tetanus toxoids and pertussis vaccine Adelaida Aichholz SCALEMAKER Work Phone: [facility] 03-02-2021 Moderna SARS-CoV-2 Vaccination Adelaida Aichholz SCALEMAKER Work Phone: [facility] 08-24-2020 Moderna SARS-CoV-2 Vaccination Adelaida Aichholz SCALEMAKER Work Phone: [facility] 07-27-2020 Moderna SARS-CoV-2 Vaccination Adelaida Aichholz SCALEMAKER Work Phone: [facility] 05-28-2018 influenza, injectabl e, quadrivalent, preservative free Adelaida Aichholz Work Phone: [facility] 2017 pneumococcal conjuga te vaccine, 13 valent Adelaida Aichholz SCALEMAKER Work Phone: [facility] Payers Date Payer Category Payer Medicare [id number] 2022 Self-pay [id number] 2022 Medicare [id number] 2022 Medicare (Managed Care) [facility] MEDICARE [id number] 2008 Unknown [id number] 1961 Unknown [id number] 2.16.840.1.649475.3.579.2 .647 1961 Unknown [id number] 2.16.840.1.981797.3.579.2 .593 1961 Unknown [id number] 2.16.840.1.927190.3.579.2 .593 1961 Unknown [id number] 2.16.840.1.241827.3.579.2 .593 1961 Unknown [id number] 2.16.840.1.492768.3.579.2 .593 1961 Unknown [id number] 2.16.840.1.893911.3.579.2 .593 1961 Unknown [id number] 2.16.840.1.603107.3.579.2 .593 1961 Unknown [id number] 2.16.840.1.018861.3.579.2 .593 1961 Unknown [id number] 2.16.840.1.161810.3.579.2 .593 1961 Unknown [id number] 2.16.840.1.961480.3.579.2 .593 1961 Unknown [id number] 2.16.840.1.827797.3.579.2 .593 1961 Unknown [id number] 2.16.840.1.408862.3.579.2 .593 1961 Unknown [id number] 2.16.840.1.982007.3.579.2 .593 1961 Unknown [id number] 2.16.840.1.689498.3.579.2 .593 1961 Unknown [id number] 2.16.840.1.933639.3.579.2 .593 1961 Unknown [id number] 2.16.840.1.776096.3.579.2 .593 1961 Unknown [id number] 2.16.840.1.062502.3.579.2 .593 1961 Unknown [id number] 2.16.840.1.987750.3.579.2 .593 1961 Unknown [id number] 2.16.840.1.317424.3.579.2 .593 1961 Unknown [id number] 2.16.840.1.958943.3.579.2 .593 1961 Unknown [id number] 2.16.840.1.205403.3.579.2 .593 1961 Unknown [id number] 2.16.840.1.597252.3.579.2 .593 1961 Unknown [id number] 2.16.840.1.232827.3.579.2 .593 1961 Unknown [id number] 2.16.840.1.323635.3.579.2 .593 1961 Unknown [id number] 2.16.840.1.627224.3.579.2 .593 1961 Unknown [id number] 2.16.840.1.686030.3.579.2 .196 1961 Unknown [id number] 2.16.840.1.919369.3.579.2 .196 1961 Unknown [id number] 2.16.840.1.325046.3.579.2 .196 1961 Unknown [id number] 2.16.840.1.557019.3.579.2 .196 1961 Unknown [id number] 2.16.840.1.642191.3.579.2 .1259 1961 Unknown [id number] 2.16.840.1.608813.3.579.2 .1259 1961 Unknown [id number] 2.16.840.1.203694.3.579.2 .1258 1961 Unknown [id number] 2.16.840.1.773045.3.579.2 .1258 1961 Unknown [id number] 2.16.840.1.768352.3.579.2 .1258 1961 Unknown [id number] 2.16.840.1.279904.3.579.2 .1258 1961 Unknown [id number] 2.16.840.1.693559.3.579.2 .1258 1961 Unknown [id number] 2.16.840.1.954505.3.579.2 .1258 1961 Unknown [id number] 2.16.840.1.439164.3.579.2 .1258 1961 Unknown [id number] 2.16.840.1.970431.3.579.2 .1258 1961 Unknown [id number] 2.16.840.1.268201.3.579.2 .1258 1961 Unknown [id number] 2.16.840.1.834275.3.579.2 .1258 1961 Unknown [id number] 2.16.840.1.840161.3.579.2 .1258 1961 Unknown [id number] 2.16.840.1.300172.3.579.2 .1258 1961 Unknown [id number] 2.16.840.1.292725.3.579.2 .1258 1961 Unknown [id number] 2.16.840.1.557823.3.579.2 .1258 1961 Unknown [id number] 2.16.840.1.731110.3.579.2 .1258 1961 Unknown [id number] 2.16.840.1.958308.3.579.2 .1259 1961 Unknown [id number] 2.16.840.1.986736.3.579.2 .1259 1961 Unknown [id number] 2.16.840.1.306556.3.579.2 .1259 1959 Medicare [id number] 1959 Unknown [id number] Private Health Insurance [facility] [id number] Unknown [id number] 2.16.840.1.337327.3.579.2 .531 Unknown [id number] 2.16.840.1.157795.3.579.2 .531 Social History Date Type Detail Facility Start: 11-18-2022 End: 10-14-2023 Tobacco smoking status NHIS Ex-smoker (finding) [facility] Start: 1960 Sex Assigned At Female [facility] Start: 03-25-2023 End: 08-16-2023 Sex Assigned At [facility] Start: 04-06-1976 End: 04-06-2016 History of tobacco use Current smoker [facility] Start: 04-06-1976 End: 04-06-2016 History of tobacco use Cigarette Smoker [facility] Start: 02-09-2023 End: 08-16-2023 Cigarettes smoked current (pack per day) - Reported 1 [facility] Start: 02-09-2023 End: 10-14-2023 Tobacco use and exposure Smokeless tobacco non-user [facility] Start: 05-18-2023 End: 08-16-2024 Alcohol intake Lifetime non-drinker (finding) [facility] Start: 11-13-2022 Alcohol Comment caffeine intake: 1-2 cups per day. [facility] Start: 10-01-2022 Gender identity Identifies [...] Facility 11-20-2022 Functional status Patient at Baseline [facility] Work Phone: Mental Status Date Assessment Result Facility 11-20-2022 Cognitive function Cognitive Sta tus Patient is Progressing Toward Baseline [place] Work Phone: Clinical Notes 10-03-2021 to 08-16-2024 [...] biotin 5 MG tablet Pt taking OTC ([employer]) Calcium Citrate-Vitamin D (CITRACAL + D PO) Pt taking OTC ([facility]) carvedilol (COREG) 12.5 mg, Oral, [...] Daily Magnesium 400 MG capsule Pt taking OTC([facility]) Melatonin 12 MG tablet 1 tablet, Nightly Multiple Vitamins-Minerals (BARIATRIC MULTIVITAMINS/IRON PO) Pt taking OTC ([facility]) omeprazole (PRILOSEC) 20 mg, Oral, Daily [...] Anxiety 05/18/2023 Bipolar disorder with severe depression ([facility]) 05/18/2023 Brain lesion Brain vascular malformation Chronic pain disorder Closed fracture of patella 02/04/2018 Colon polyps Constipation Degenerative cervical disc Degenerative lumbar disc Depression (CMS/HCC) 05/18/2023 Diastolic dysfunction Dizziness 05/18/2023 Dysphagia Fibromyalgia Fibromyalgia Gastrocnemius equinus GERD (gastroesophageal reflux disease) Heart murmur Hematoma of right breast Hemiparesis ([facility]) Hemiparesis, right ([facility]) Hemorrhoid int/external hemorrhoids Hiatal hernia Iron deficiency Left foot pain 03/25/2023 Lower extremity edema Mood disorder ([facility]) mixed mood disorder OSMANY (obstructive sleep apnea) Osteoporosis ([facility]) Overactive bladder Pre-diabetes Primary hypertension ([facility]) 03/25/2023 PTSD (post-traumatic stress disorder) ([facility]) Restless leg Right knee pain Right sided weakness S/P bariatric surgery Shingles Slurred speech Stroke ([facility]) 2018 Tenosynovitis, de Quervain Thoracic [...] trelegy 100's resolved documented in this encounter [facility] 08-16-2024 Instructions Adelaida Carrion NP - 08/16/2024 11:30 AM EDT Mammogram and lung cancer CT documented in this encounter [facility] 07-27-2024 History of Present illness Narrative Associated Problem(s): Bronchitis Continue OTC mucus relief meds Will add trelegy for bronchitis 100's #2 samples lot [id number], exp 10/28 Fu if not better No s/s resp distress [facility] ER- 07/24/24 Bronchitis & Leurisy Medications: [...] with chief complaint of Hospital Follow-up HPI: [facility]- 07/24/24 Bronchitis & Leurisy Medications: [...] biotin 5 MG tablet Pt taking OTC ([employer]) Calcium Citrate-Vitamin D (CITRACAL + D PO) Pt taking OTC ([employer]) carvedilol (COREG) 12.5 mg, Oral, 2 times daily with meals cetirizine (ZYRTEC) 10 mg, Oral, Daily diclofenac (Voltaren) 50 MG EC tablet DULoxetine (CYMBALTA) 60 mg, 2 times daily fluticasone (Flonase) 50 MCG/ACT nasal spray 2 sprays, Each Nostril, Daily gabapentin (NEURONTIN) 300 mg, Oral, 2 times daily, Due now losartan (COZAAR) 100 mg, Oral, Daily Magnesium 400 MG capsule Pt taking OTC(P[employer]ilo) Melatonin 12 MG tablet 1 tablet, Nightly Multiple Vitamins-Minerals (BARIATRIC MULTIVITAMINS/IRON PO) Pt taking OTC ([employer]) omeprazole (PRILOSEC) 20 mg, Oral, Daily before [...] Anxiety 05/18/2023 Bipolar disorder with severe depression ([facility]/HCC) 05/18/2023 Brain lesion Brain vascular malformation Chronic [...] pain 03/25/2023 Lower extremity edema Mood disorder ([facility]) mixed mood disorder OSMANY (obstructive sleep apnea) Osteoporosis ([facility]) Overactive bladder Pre-diabetes Primary hypertension ([facility]) 03/25/2023 PTSD (post-traumatic stress disorder) ([facility]) Restless leg Right knee pain Right sided weakness S/P bariatric surgery Shingles Slurred speech Stroke ([facility]) 2018 Tenosynovitis, de Quervain Thoracic [...] meds: amlodipine, losartan documented in this encounter [facility] 07-26-2024 History of Present illness Narrative Images from the original note were not included. Subjective Chief Complaint Patient presents with Altered Mental Status Past Medical History: Diagnosis Date Abnormal mammogram of left breast Achilles tendinitis, right leg Acute gout of right foot, unspecified cause Allergic rhinitis 05/18/2023 Anemia Anxiety 05/18/2023 Bipolar disorder with severe depression ([facility]) 05/18/2023 Brain lesion Brain vascular malformation Chronic pain disorder Closed fracture of patella 02/04/2018 Colon polyps Constipation Degenerative cervical disc Degenerative lumbar disc Depression ([facility]/HCC) 05/18/2023 Diastolic dysfunction Dizziness 05/18/2023 Dysphagia Fibromyalgia Fibromyalgia Gastrocnemius equinus GERD (gastroesophageal reflux disease) Heart murmur Hematoma of right breast Hemiparesis (CMS/HCC) Hemiparesis, right (CMS/HCC) Hemorrhoid int/external hemorrhoids Hiatal hernia Iron deficiency Left foot pain 03/25/2023 Lower extremity edema Mood disorder (CMS/HCC) mixed mood disorder OSMANY (obstructive sleep apnea) Osteoporosis (CMS/HCC) Overactive bladder Pre-diabetes Primary hypertension (CMS/HCC) 03/25/2023 PTSD (post-traumatic stress disorder) (CMS/[facility]) Restless leg Right knee pain Right sided weakness S/P bariatric surgery Shingles Slurred speech Stroke ([facility]) 2018 Tenosynovitis, de Quervain Thoracic [...] Review Audit Reviewed by Beronica Reyes MA (Master Craftsman) on 07/26/24 at 1049 Medication Order Taking? Sig Documenting Provider Last Dose Status amLODIPine (Norvasc) 10 MG tablet [id number] Take 1 tablet (10 mg) by mouth Daily Adelaida Carrion NP 06/11/242358 azithromycin (Zithromax) 250 MG tablet [id number] Day #1: 2 tablets, and Day 2-5: 1 tablet daily Adelaida Carrion NP Active biotin 5 MG tablet [id number] Pt taking OTC ([employer]) Historical Provider, Active Calcium Citrate-Vitamin D (CITRACAL + D PO) [id number] Pt taking OTC ([employer]) Historical Provider, Active carvedilol (Coreg) 12.5 MG tablet [id number] Take 1 tablet (12.5 mg) by mouth in the morning and 1 tablet (12.5 mg) in the evening. Take with meals. Adelaida Carrion NP 06/11/24 235 cetirizine (ZyrTEC) 10 MG tablet [id number] Take 1 tablet (10 mg) by mouth Daily Adelaida Carrion NP 06/11/24 235 DULoxetine (Cymbalta) [address] capsule [id number] Take 60 mg by mouth in the morning and 60 mg before bedtime. Do not crush or chew.. Active fluticasone (Flonase) 50 MCG/ACT nasal spray [id number] Administer 2 sprays into each nostril Daily Adelaida Carrion NP 06/11/242358 gabapentin (Neurontin) 300 MG capsule [id number] Take 1 capsule (300 mg) by mouth in the morning and 1 capsule (300 mg) before bedtime. Due now. MAUREEN Akbar Active losartan (Cozaar) 100 MG tablet [id number] Take 1 tablet (100 mg) by mouth Daily Adelaida Carrion NP 06/11/242358 Magnesium 400 MG capsule [id number] Pt taking OTC(Puuilo) Historical ProviderMD Active Melatonin 12 MG tablet [id number] Take 1 tablet by mouth at bedtime Active Multiple Vitamins-Minerals (BARIATRIC MULTIVITAMINS/IRON PO) [id number] Pt taking OTC ([employer]) Historical ProviderMD Active nystatin (Mycostatin) 131130 UNIT/GM powder [id number] Apply 1 application topically in the morning and 1 application before bedtime. Adelaida Carrion NP Active nystatin (Mycostatin) cream [id number] Aedlaida Carrion NP Active omeprazole (PriLOSEC) [address] capsule [id number] Take 1 capsule (20 mg) by mouth in the morning. Take before meals. Adelaida Carrion NP 06/11/242358 rOPINIRole (Requip) 2 MG tablet [id number] Take 1 tablet (2 mg) by mouth at bedtime MAUREEN Akbar Active spironolactone (Aldactone) 50 MG tablet [id number] Take 1 tablet (50 mg) by mouth Daily Adelaida Carrion NP 06/11/242358 tiZANidine (Zanaflex) 4 MG tablet [id number] Take 4 mg by mouth every 8 (eight) hours if needed for muscle spasms 1-2 tablets Adelaida Carrion NP Active traZODone (Desyrel) 150 MG tablet [id number] Take 150 mg by mouth at bedtime Active Vraylar 3 MG capsule [id number] Active HPI AMS -weaned Lacosimide -denies any further headaches and dizziness -denies any recent episodes of confusion -trouble with short and superintendent container terminal memory -states shelter is mild -forgets recent conversations and events [...] triceps, wrist extensors, wrist extensors, wrist flexor, land degradation analyst strength 5/5. LUE Strength deltoid, biceps, triceps, wrist extensors, wrist extensors, wrist flexor, land degradation analyst strength 5/5. RLE Strength illopsoas, quadriceps, [...] not all inclusive. Patient was admitted to [facility] from the [facility] on 08/24/2023 with acute respiratory failure and confusion thought to be secondary to metabolic encephalopathy. MOCA 03/01/24 was 26/30. She notes she did speech therapy and responded well to this. She was recently evaluated at [facility] 03/02/2024 for severe encephalopathy. She had brain [...] Averages almost 6 hours a night. ___ [facility] evaluation 02/29/2024: Brain MRI with and without [...] of the brain in July 2019 showed [id number] white matter changes with the largest area [...] in 2 months documented in this encounter [facility] 05-12-2024 History of Present illness Narrative A1c [...] includes CVA. There is no history of CAD/AL, heart failure or PVD. GERD She reports [...] biotin 5 MG tablet Pt taking OTC ([employer]) Calcium Citrate-Vitamin D (CITRACAL + D PO) Pt taking OTC ([employer]) carvedilol (COREG) 12.5 mg, Oral, 2 times [...] Daily Magnesium 400 MG capsule Pt taking OTC(Puuilo) Melatonin 12 MG tablet 1 tablet, Nightly Multiple Vitamins-Minerals (BARIATRIC MULTIVITAMINS/IRON PO) Pt taking OTC ([employer]) nystatin (Mycostatin) [id number] UNIT/GM powder 1 application , 2 times [...] Anxiety 05/18/2023 Bipolar disorder with severe depression ([facility]) 05/18/2023 Brain lesion Brain vascular malformation Chronic pain disorder Closed fracture of patella 02/04/2018 Colon polyps Constipation Degenerative cervical disc Degenerative lumbar disc Depression ([facility]) 05/18/2023 Diastolic dysfunction Dizziness 05/18/2023 Dysphagia Fibromyalgia Fibromyalgia Gastrocnemius equinus GERD (gastroesophageal reflux disease) Heart murmur Hematoma of right breast Hemiparesis ([facility]) Hemiparesis, right ([facility]) Hemorrhoid int/external hemorrhoids Hiatal hernia Iron deficiency Left foot pain 03/25/2023 Lower extremity edema Mood disorder ([facility]) mixed mood disorder OSMANY (obstructive sleep apnea) Osteoporosis ([facility]) Overactive bladder Pre-diabetes Primary hypertension ([facility]) 03/25/2023 PTSD (post-traumatic stress disorder) ([facility]) Restless leg Right knee pain Right sided weakness S/P bariatric surgery Shingles Slurred speech Stroke ([facility]) 2018 Tenosynovitis, de Quervain Thoracic [...] Morbid (severe) obesity due to excess calories ([facility]/HCC) Discussed with patient their BMI (actual, verses [...] losartan Chronic kidney disease, stage 3a (HCC) (CMS/HCC) Monitor labs at minimum every year Body mass index (BMI) 45.0-49.9, adult ([facility]) Other Visit Diagnoses Essential (primary) hypertension (CMS/HCC) [...] that supplies your machine and tubing/filters etc: [facility] Doctor that manages your OSMANY: Daniela Associated Problem(s): Hemiparesis, right (CMS/HCC) Stable with this from prior stroke documented in this encounter [facility] 05-12-2024 Instructions Adelaida Carrion NP - 05/12/2024 10:00 AM EST No changes in meds documented in this encounter [facility] 04-12-2024 Telephone encounter Note 03/10/2024 Continue Gabapentin 300 mg BID for RLS. Continue clonazepam 0.5mg PO BID for RLS. This was decreased during recent hospitalization Continue Vimpat 50mg PO BID for seizure prevention [facility] 04-12-2024 Miscellaneous Notes 03/10/2024 Continue Gabapentin 300 mg BID for RLS. Continue clonazepam 0.5mg PO BID for RLS. This was decreased during recent hospitalization Continue Vimpat 50mg PO BID for seizure prevention documented in this encounter [facility] 04-07-2024 History of Present illness Narrative [...] homebody. 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 Diagnosed with OSMANY and RLS, wears CPAP nightly. Pain complaints include fibromyalgia and degenerative disc disease. Also has prior history of migraines which have resolved over the past 17 years. Neurological history includes small left thalamic stroke in 2016. MoCA 26/30. Patient accurately recalled this screening measure as well as her overall performance and score on it. Admitted to [facility] from the [facility] on 08/24/2023 with acute respiratory failure and confusion thought to be secondary to metabolic encephalopathy. LTME in August 2023 negative. Recently evaluated at [facility] on 03/02/2024 for severe encephalopathy. [...] any history of alcohol/substance abuse. Reformed smoker. [place] language [place]. Reported relocating from [place] to [place] in 2011. Completed a bachelor's degree. 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 Currently on disability. Resides with of 26 years along with her son, grandson, and 2 dogs. Has 2 children from a prior relationship. MEDICAL HISTORY/MEDICATION: MEDICATIONS: Current Outpatient Medications Medication Instructions amLODIPine (NORVASC) 10 mg, Oral, Daily biotin 5 MG tablet Pt taking OTC (Win[employer]andy) Calcium Citrate-Vitamin D (CITRACAL + D PO) Pt taking OTC ([employer]) carvedilol (COREG) 12.5 mg, Oral, 2 times [...] Daily Magnesium 400 MG capsule Pt taking OTC(Puuilo) Melatonin 12 MG tablet 1 tablet, Oral, Nightly Multiple Vitamins-Minerals (BARIATRIC MULTIVITAMINS/IRON PO) Pt taking OTC ([employer]) nystatin (Mycostatin) [id number] UNIT/GM powder 1 application , 2 times [...] design >16th %ile. Motor/Speed of Processing: Right-handed. Bagging Salvager strength 16th %ile with right-hand, 38th %ile [...] Learning of a word list 79th %ile (0-49-93-12-12), delayed recall 93rd %ile. Recognition discriminability 93rd [...] Please contact me with any questions at [phone]. documented in this encounter [facility] 03-16-2024 History of Present illness Narrative Associated Problem(s): Right bundle branch block (RBBB) determined by electrocardiography At this point I will look at her past EKG's, She has had ECHO in past No symptoms, at this time I do not think that further testing is needed Pt is having a memory test done on apr 07 in [place] Pt is anxious and afraid-pt father had dementia Spironolactone pt is asking for 50mg instead of 25mg Images from the original note were not included. Michelle Be is a 63 y.o. female presents with chief complaint of Anxiety HPI: Here for hospital follow up: AMS She was evaluated at [facility], was seen by Neurology reviewed notes from [...] biotin 5 MG tablet Pt taking OTC ([facility]) Calcium Citrate-Vitamin D (CITRACAL + D PO) Pt taking OTC ([facility]) carvedilol (COREG) 12.5 mg, Oral, [...] Daily Magnesium 400 MG capsule Pt taking OTC(Puuilo) Melatonin 12 MG tablet 1 tablet, Oral, Nightly Multiple Vitamins-Minerals (BARIATRIC MULTIVITAMINS/IRON PO) Pt taking OTC ([employer]) nystatin (Mycostatin) [id number] UNIT/GM powder 1 application , 2 times [...] Anxiety 05/18/2023 Bipolar disorder with severe depression ([facility]) 05/18/2023 Brain lesion Brain vascular malformation Chronic pain disorder Closed fracture of patella 02/04/2018 Colon polyps Constipation Degenerative cervical disc Degenerative lumbar disc Depression ([facility]) 05/18/2023 Diastolic dysfunction Dizziness 05/18/2023 Dysphagia Fibromyalgia Fibromyalgia Gastrocnemius equinus GERD (gastroesophageal reflux disease) Heart murmur Hematoma of right breast Hemiparesis ([facility]) Hemiparesis, right ([facility]) Hemorrhoid int/external hemorrhoids Hiatal hernia Iron deficiency Left foot pain 03/25/2023 Lower extremity edema Mood disorder ([facility]) mixed mood disorder OSMANY (obstructive sleep apnea) Osteoporosis ([facility]) Overactive bladder Pre-diabetes Primary hypertension ([facility]) 03/25/2023 PTSD (post-traumatic stress disorder) ([facility]) Restless leg Right knee pain Right sided weakness S/P bariatric surgery Shingles Slurred speech Stroke ([facility]) 2018 Tenosynovitis, de Quervain Thoracic [...] 2 25mg pills Associated Problem(s): Primary hypertension (CMS/[facility]) Please check blood pressure daily [...] to have evaluation documented in this encounter [facility] 03-16-2024 Instructions Adelaida Carrion NP - 03/16/2024 10:00 AM EST Spironolactone: I discontinued the 25mg script for this, sent a new script to [facility], for a 50mg pill, you will take 1 pill daily Memory testing in Apr 2024 Follow up with me in early May, sooner if needed documented in this encounter [facility] 03-16-2024 Telephone encounter Note Yep, sent to [facility]. [facility] 03-16-2024 Miscellaneous Notes Yep, sent to [employer]. Patient calls and states that hospital lowered her requip to 2 mg at bed time. Okay to send as new dosage? documented in this encounter [facility] 03-15-2024 Telephone encounter Note Patient calls and states that hospital lowered her requip to 2 mg at bed time. Okay to send as new dosage? [facility] 03-14-2024 History of Present illness Narrative [...] performance and score on it. Admitted to [facility] from the [facility] on 08/24/2023 with acute respiratory failure and confusion thought to be secondary to metabolic encephalopathy. Previous LTME in August 2023 negative. Recently evaluated at [facility] on 03/02/2024 for severe encephalopathy. [...] any history of alcohol/substance abuse. Reformed smoker. [place] language [place]. Reported relocating from [place] to [place] in 2011. Completed a bachelors [...] Heart murmur Hematoma of right breast Hemiparesis ([facility]) Hemiparesis, right ([facility]) Hemorrhoid int/external hemorrhoids Hiatal hernia Iron deficiency Left foot pain 03/25/2023 Lower extremity edema Mood disorder ([facility]) mixed mood disorder OSMANY (obstructive sleep apnea) Osteoporosis ([facility]) Overactive bladder Pre-diabetes Primary hypertension ([facility]) 03/25/2023 PTSD (post-traumatic stress disorder) ([facility]) Restless leg Right knee pain Right sided weakness S/P bariatric surgery Shingles Slurred speech Stroke ([facility]) 2018 Tenosynovitis, de Quervain Thoracic back pain, unspecified back pain laterality, unspecified chronicity Tobacco dependence Vertigo, benign paroxysmal Yeast infection of the skin 05/18/2023 MEDICATIONS: Current Outpatient Medications Medication Instructions amLODIPine (NORVASC) 10 mg, Oral, Daily biotin 5 MG tablet Pt taking OTC [employer]) Calcium Citrate-Vitamin D (CITRACAL + D PO) Pt taking OTC [employer]) carvedilol (COREG) 12.5 mg, Oral, 2 times [...] Daily Magnesium 400 MG capsule Pt taking [employer]) Melatonin 12 MG tablet 1 tablet, Oral, Nightly Multiple Vitamins-Minerals (BARIATRIC MULTIVITAMINS/IRON PO) Pt taking OTC ([employer]) nystatin (Mycostatin) 101534 UNIT/GM powder 1 application , Topical, 2 [...] Please contact me with any questions at [phone]. documented in this encounter [facility] 02-16-2024 History of Present illness Narrative [...] biotin 5 MG tablet Pt taking OTC ([employer]) Calcium Citrate-Vitamin D (CITRACAL + D PO) Pt taking OTC ([employer]) carvedilol (COREG) 12.5 mg, Oral, 2 times [...] Daily Magnesium 400 MG capsule Pt taking OTC([employer]) Melatonin 12 MG tablet 1 tablet, Oral, Nightly Multiple Vitamins-Minerals (BARIATRIC MULTIVITAMINS/IRON PO) Pt taking OTC ([employer]) nystatin (Mycostatin) 832989 UNIT/GM powder 1 application , Topical, 2 [...] Anxiety 05/18/2023 Bipolar disorder with severe depression ([facility]) 05/18/2023 Brain lesion Brain vascular malformation Chronic pain disorder Closed fracture of patella 02/04/2018 Colon polyps Constipation Degenerative cervical disc Degenerative lumbar disc Depression ([facility]) 05/18/2023 Diastolic dysfunction Dizziness 05/18/2023 Dysphagia Fibromyalgia Fibromyalgia Gastrocnemius equinus GERD (gastroesophageal reflux disease) Heart murmur Hematoma of right breast Hemiparesis ([facility]) Hemiparesis, right ([facility]) Hemorrhoid int/external hemorrhoids Hiatal hernia Iron deficiency Left foot pain 03/25/2023 Lower extremity edema Mood disorder ([facility]) mixed mood disorder OSMANY (obstructive sleep apnea) Osteoporosis ([facility]) Overactive bladder Pre-diabetes Primary hypertension ([facility]) 03/25/2023 PTSD (post-traumatic stress disorder) ([facility]) Restless leg Right knee pain Right sided weakness S/P bariatric surgery Shingles Slurred speech Stroke ([facility]) 2018 Tenosynovitis, de Quervain Thoracic [...] nursing note reviewed. Exam conducted with a grain roaster present. Constitutional: General: She is not in [...] chronic conditions allow documented in this encounter [facility] 01-28-2024 History of Present illness Narrative [...] ER fu for UTI and dehydration. See [facility] for HPI Was sent home on Bactrim. Feels completely fine now, no fever, chills, malodorous urine, no constipation diarrhea or abd pain SUBJECTIVE: MEDICATIONS: Current Outpatient Medications Medication Instructions amLODIPine (NORVASC) 10 mg, Oral, Daily biotin 5 MG tablet Pt taking OTC ([employer]) Calcium Citrate-Vitamin D (CITRACAL + D PO) Pt taking OTC ([employer]) carvedilol (COREG) 12.5 mg, Oral, 2 times [...] Daily Magnesium 400 MG capsule Pt taking OTC([employer]) Melatonin 12 MG tablet 1 tablet, Oral, Nightly Multiple Vitamins-Minerals (BARIATRIC MULTIVITAMINS/IRON PO) Pt taking OTC ([facility]) nystatin (Mycostatin) 104286 UNIT/GM powder 1 application , Topical, 2 [...] Anxiety 05/18/2023 Bipolar disorder with severe depression ([facility]) 05/18/2023 Brain lesion Brain vascular malformation Chronic pain disorder Closed fracture of patella 02/04/2018 Colon polyps Constipation Degenerative cervical disc Degenerative lumbar disc Depression ([facility]/HCC) 05/18/2023 Diastolic dysfunction Dizziness 05/18/2023 Dysphagia Fibromyalgia Fibromyalgia Gastrocnemius equinus GERD (gastroesophageal reflux disease) Heart murmur Hematoma of right breast Hemiparesis ([facility]) Hemiparesis, right ([facility]) Hemorrhoid int/external hemorrhoids Hiatal hernia Iron deficiency Left foot pain 03/25/2023 Lower extremity edema Mood disorder ([facility]) mixed mood disorder OSMANY (obstructive sleep apnea) Osteoporosis (CMS/[facility]) Overactive bladder Pre-diabetes Primary hypertension ([facility]) 03/25/2023 PTSD (post-traumatic stress disorder) ([facility]) Restless leg Right knee pain Right sided weakness S/P bariatric surgery Shingles Slurred speech Stroke ([facility]) 2018 Tenosynovitis, de Quervain Thoracic [...] of the risks of continued smoking: stroke, AL, all forms of cancer, lung disease, and [...] Relevant Orders Flu vaccine, MDCK, quadrivalent, PF ([id number]) (Flucelvax single dose syringe) Associated Problem(s): Tobacco dependence The patient has been advised of the risks of continued smoking: stroke, AL, all forms of cancer, lung disease, and . Options for quitting smoking include: cold turkey, hypnosis, acupuncture, nicotine replacement meds (gum, lozenges, and patches), Buproprion, and Varenicline. At this time pt is encouraged to evaluate their goals for wanting to quit smoking, and reach out to provider when ready to start this process documented in this encounter [facility] 01-04-2024 History of Present illness Narrative [...] compliance problems. There is no history of CAD/AL, heart failure or PVD. Identifiable causes of hypertension include sleep apnea. SUBJECTIVE: MEDICATIONS: Current Outpatient Medications Medication Instructions amLODIPine (NORVASC) 10 mg, Oral, Daily biotin 5 MG tablet Pt taking OTC ([employer]) Calcium Citrate-Vitamin D (CITRACAL + D PO) Pt taking OTC ([employer]) carvedilol (COREG) 12.5 mg, Oral, 2 times [...] Daily Magnesium 400 MG capsule Pt taking [employer]) Melatonin 12 MG tablet 1 tablet, Oral, Nightly Multiple Vitamins-Minerals (BARIATRIC MULTIVITAMINS/IRON PO) Pt taking OTC [employer]) nystatin (Mycostatin) 841948 UNIT/GM powder 1 application , Topical, 2 [...] Osteoporosis (CMS/HCC) Overactive bladder Pre-diabetes Primary hypertension ([facility]) 03/25/2023 PTSD (post-traumatic stress disorder) ([facility]) Restless leg Right knee pain Right sided weakness S/P bariatric surgery Shingles Slurred speech Stroke ([facility]) 2017 Tenosynovitis, de Quervain Thoracic [...] MCG/ACT nasal spray documented in this encounter [facility] 12-09-2023 History of Present illness Narrative [...] machine. She is normally seen at the [facility] and was last seen on [...] Degenerative cervical disc Degenerative lumbar disc Depression ([facility]/HCC) 05/18/2023 Diastolic dysfunction Dizziness 05/18/2023 Dysphagia Fibromyalgia Fibromyalgia Gastrocnemius equinus GERD (gastroesophageal reflux disease) Heart murmur Hematoma of right breast Hemiparesis ([facility]) Hemiparesis, right ([facility]) Hemorrhoid int/external hemorrhoids Hiatal hernia Iron deficiency Left foot pain 03/25/2023 Lower extremity edema Mood disorder ([facility]) mixed mood disorder OSMANY (obstructive sleep apnea) Osteoporosis ([facility]) Overactive bladder Pre-diabetes Primary hypertension ([facility]) 03/25/2023 PTSD (post-traumatic stress disorder) ([facility]) Restless leg Right knee pain Right sided weakness S/P bariatric surgery Shingles Slurred speech Stroke ([facility]) 2018 Tenosynovitis, de Quervain Thoracic [...] melatonin. She was last seen in the [facility] on June 24, 2023. Since [...] for short term insomnia and not for superintendent container terminal insomnia. She is compliant on her download [...] was counseled on the risks of stroke, AL, and sudden with OSMANY, along with the [...] clinic: one year documented in this encounter [facility] 12-08-2023 History of Present illness Narrative [...] Anxiety 05/18/2023 Bipolar disorder with severe depression ([facility]) 05/18/2023 Brain lesion Brain vascular malformation Chronic pain disorder Closed fracture of patella 02/04/2018 Colon polyps Constipation Degenerative cervical disc Degenerative lumbar disc Depression ([facility]) 05/18/2023 Diastolic dysfunction Dizziness 05/18/2023 Dysphagia Fibromyalgia Fibromyalgia Gastrocnemius equinus GERD (gastroesophageal reflux disease) Heart murmur Hematoma of right breast Hemiparesis ([facility]) Hemiparesis, right ([facility]) Hemorrhoid int/external hemorrhoids Hiatal hernia Iron deficiency Left foot pain 03/25/2023 Lower extremity edema Mood disorder ([facility]) mixed mood disorder OSMANY (obstructive sleep apnea) Osteoporosis ([facility]) Overactive bladder Pre-diabetes Primary hypertension ([facility]) 03/25/2023 PTSD (post-traumatic stress disorder) ([facility]) Restless leg Right knee pain Right sided weakness S/P bariatric surgery Shingles Slurred speech Stroke ([facility]) 2018 Tenosynovitis, de Quervain Thoracic [...] Review Audit Reviewed by Festus Baron MA (Master Craftsman) on 12/08/23 at 1525 Medication Order Taking? Sig Documenting Provider Last Dose Status amLODIPine (Norvasc) 10 MG tablet [id number] Take 1 tablet (10 mg) by mouth Daily Adelaida Carrion NP Active biotin 5 MG tablet [id number] Pt taking OTC ([facility]) Historical ProviderMD Active Calcium Citrate-Vitamin D (CITRACAL + D PO) [id number] Pt taking OTC ([facility]) Historical ProviderMD Active Cariprazine HCl (Vraylar) 4.5 MG capsule [id number] Take 4.5 mg by mouth Daily Active carvedilol (Coreg) 12.5 MG tablet [id number] Take 1 tablet (12.5 mg) by mouth in the morning and 1 tablet (12.5 mg) in the evening. Take with meals. Adelaida Carrion NP Active cetirizine (ZyrTEC) 10 MG tablet [id number] Take 1 tablet (10 mg) by mouth Daily Adelaida Carrion NP Active clonazePAM (KlonoPIN) 1 MG tablet [id number] Take 1 tablet (1 mg) by mouth 2 (two) times a day as needed for anxiety Do not start before October 16, 2023. Sonam Brown NP 11/15/23 2359 DULoxetine (Cymbalta) [address] capsule [id number] Take 60 mg by mouth in the morning and 60 mg before bedtime. Do not crush or chew.. Active fluconazole (Diflucan) 150 MG tablet [id number] 1 pill every 3 days for a total of 3 doses Adelaida Carrion NP Active fluticasone (Flonase) 50 MCG/ACT nasal spray [id number] Administer 2 sprays into each nostril Daily Adelaida Carrion NP 11/04/23 2359 gabapentin (Neurontin) 300 MG capsule [id number] Take 1 capsule (300 mg) by mouth in the morning and 1 capsule (300 mg) before bedtime. Sonam Brown NP Active losartan (Cozaar) 100 MG tablet [id number] Take 1 tablet (100 mg) by mouth Daily Adelaida Carrion NP Active Magnesium 400 MG capsule [id number] Pt taking OTC([facility]) Historical ProviderMD Active Melatonin 12 MG tablet [id number] Take 1 tablet by mouth at bedtime Active Multiple Vitamins-Minerals (BARIATRIC MULTIVITAMINS/IRON PO) [id number] Pt taking OTC ([employer]) Historical Provider, Active nystatin (Mycostatin) 569252 UNIT/GM powder [id number] Apply 1 application topically in the morning and 1 application before bedtime. Adelaida Carrion NP Active omeprazole (PriLOSEC) [address] capsule [id number] Take 1 capsule (20 mg) by mouth in the morning. Take before meals. Adelaida Carrion NP Active rOPINIRole (Requip) 4 MG tablet [id number] Take 1 tablet (4 mg) by mouth at bedtime Sonam Brown NP Active spironolactone (Aldactone) 25 MG tablet [id number] Take 2 tablets (50 mg) by mouth Daily Adelaida BRIANA Carrion Active tiZANidine (Zanaflex) 2 MG tablet [id number] Take 2 mg by mouth every 8 (eight) hours Adelaidamonse Carrion NP Active traZODone (Desyrel) 150 MG tablet [id number] Take 150 mg by mouth at bedtime Active HPI AMS -Patient was admitted to [facility] from the [facility] on 08/24/2023 with acute respiratory failure and confusion thought to be secondary to metabolic encephalopathy. Patient denies any new hospital stays. -She was seen by Neurology who thought she had a toxic encephalopathy secondary to medication overuse. -She was monitored on LTME which did not show any evidence of seizures. -After she was discharged she had a short stay at the alf facility on 09/03/2023 and she was discharged [...] ankle and great toe bilaterally. Coordination Right: Schvqi-tn-ufyt normal. Rapid alternating movement normal.Left: Ttnhib-va-apqf normal. Rapid alternating movement normal. Gait Casual gait is normal including stance, stride, and arm swing. Motor Examination RUE Strength deltoid, biceps, triceps, wrist extensors, wrist extensors, wrist flexor, land degradation analyst strength 5/5. LUE Strength deltoid, biceps, triceps, wrist extensors, wrist extensors, wrist flexor, land degradation analyst strength 5/5. RLE Strength illopsoas, quadriceps, [...] not all inclusive. Patient was admitted to [facility] from the [facility] on 08/24/2023 with acute respiratory failure and [...] of the brain in July 2019 showed tvvq-al-jqgnkvxj white matter changes with the largest area [...] make further recommendations documented in this encounter [facility] 05-18-2023 History of Present illness Narrative [...] (BARIATRIC MULTIVITAMINS/IRON PO) Bariatric Multivitamins/Iron nystatin (Mycostatin) [id number] UNIT/GM powder 1 application , Topical, 2 [...] Anxiety 05/18/2023 Bipolar disorder with severe depression ([facility]/HCC) 05/18/2023 Brain vascular malformation Chronic pain disorder Colon polyps Constipation Degenerative cervical disc Degenerative lumbar disc Depression ([facility]/HCC) 05/18/2023 Diastolic dysfunction Dizziness 05/18/2023 Dysphagia Fibromyalgia Gastrocnemius equinus GERD (gastroesophageal reflux disease) Heart murmur Hematoma of right breast Hemiparesis, right ([facility]/HCC) Hemorrhoid int/external hemorrhoids Hiatal hernia Iron deficiency Left foot pain 03/25/2023 Lower extremity edema Mood disorder (CMS/HCC) mixed mood disorder OSMANY (obstructive sleep apnea) Osteoporosis (CMS/[facility]) Overactive bladder Pre-diabetes Primary hypertension ([facility]) 03/25/2023 PTSD (post-traumatic stress disorder) ([facility]) Restless leg Right knee pain Right sided weakness S/P bariatric surgery Shingles Slurred speech Stroke ([facility]) 2018 Tenosynovitis, de Quervain Thoracic [...] yearly and prn documented in this encounter [facility] 03-23-2023 Procedure note [facility] 12-19-2022 Evaluation note Encounter Date Diagnosis Assessment Notes Dec, Skin candidiasis (ICD-10 - B37.2) Drink plenty fluids, get plenty of rest. Continue home medications as prescribed. Take the Diflucan as prescribed until gone. Follow-up with your family physician if no improvement in 2 to 3 days Superprotonic Other 08-17-2023 Discharge summary Author Eduardo bautista [facility] November 20, 2022 6:38am Note Date/Time November 20, 2022 6: 38am [facility] [address] [place] [address] Discharge Summary Signed Patient: Michelle Be MR#: [id number] : 1960 Acct:[id number] Age/Sex: 61 / F Adm Date: 3 Loc: 1S Room: [address] [place] [address]: Gaudencio Monk MD Copies to: MD Adelaida Álvarez, SCALEMAKER-C~ Providers Date of Discharge: 11/20/22 Discharging Provider: [...] time.? She reports moving to [place] from [place] in 2011 and was then diagnosed with bipolar disorder at [facility] in [place], where she still follows with a therapist.? Shereports that she has been with 7 therapists in the last 9 years and is currentlycompleting EMDR with her current therapist. 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 (insert date/time [...] Eduardo Monk MD> 11/20/22 0638 [facility] Work Phone: 1([phone]) 230-268608-16-2023 Progress note Author Eduardo bautista [facility] November 19, 2022 6:25am Note Date/Time November 19, 2022 6: 25am [facility] [address] [place] [address] Psychiatry Progress Note Signed Patient: Michelle Be MR#: [id number] : 1960 Acct:[id number] Age/Sex: 61 / F Adm Date: 3 Loc: Room: [address] [place] [address] Type : ADM IN Attending Dr: Gaudencio [...] signed by Eduardo Monk MD> 11/19/22 [address] [place] Work Phone: 1(595) 141-649308-15-2023 Progress note Author Eduardo bautista [facility] November 18, 2022 11:01am Note Date/Time November 18, 2022 10 :11am [facility] [address] [place] [address] Psychiatry Progress Note Signed Patient: Michelle Be MR#: [id number] : 1960 Acct:[id number] Age/Sex: 61 / F Adm Date: 3 Loc: Room: [address] [place] [address] Type : ADM IN Attending Dr: Gaudencio [...] by requesting a schedule 2 referring to [place] for pain management specifically every 4-6 hours [...] signed by MD DA Rangel> 11/18/22 [address] [place] Work Phone: 1(427) 581-415408-14-2023 History and physical note Author Eduardo bautista [facility] November 17, 2022 12:48pm Note Date/Time November 17, 2022 12 :48pm [facility] [address] [place] [address] Psychiatry H&P Signed Patient: Michelle Be MR#: [id number] : 1960 Acct:[id number] Age/Sex: 61 / F Adm Date: 3 Loc: Room: [address] [place] [address] Type: ADM IN Attending Dr: Gaudencio Monk [...] time. She reports moving to [place] from [place] in 2011 and was then diagnosed with bipolar disorder at [facility] in [place], where she still follows with a therapist. Shereports that she has been with 7 therapists in the last 9 years and is currentlycompleting EMDR with her current therapist. 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 Relationships: Reports having people who [...] equal bilaterally. CN XII: Tongue protrusion midline [facility] Medical History (Updated 11/17/22 @ [...] signed by Eduardo Monk MD> 11/17/22 [address] [place] Work Phone: [phone]) 732-626003-23-2023 NoteCONSULTATION CONSULTATION DATE: 06/26/2022 To: Nurse Carrion [...] L5-S1 facet joint injection under fluoroscopic guidance.[id number] NotePROCEDURE: XR SHOULDER RT 2V or > [...] Electronically authenticated by: KINGSLEY CLEMENTS Date: 2022-05-09 09:21[facility]01-23-2023 NotePROCEDURE: XR WRIST LT MIN 3 [...] Electronically authenticated by: KINGSLEY CLEMENTS Date: 2022-04-28 13:31[facility]12-29-2022 NoteCONSULTATION CONSULTATION DATE: 04/03/2022 HISTORY OF [...] her in three months, unless otherwise indicated.[id number] NoteCONSULTATION CONSULTATION DATE: 01/02/2022 This is a [...] prescription was sent by Dr. Macedo to [facility] in [place] for the compounded cream. She needs a [...] in three months' time unless otherwise indicated.[id number] NotePROCEDURE: XR ANKLE RT MIN 3 VIEWS, [...] Electronically authenticated by: KINGSLEY CLEMENTS Date: 2022-01-01 13:11[facility]09-28-2022 NotePROCEDURE: XR ANKLE RT MIN 3 [...] Electronically authenticated by: KINGSLEY CLEMENTS Date: 2022-01-01 13:11[facility]08-18-2022 NotePROCEDURE: XR FOOT RT MIN 3 VIEWS HISTORY: Pain in right foot , chronic COMPARISON: XR foot right 2020 FINDINGS: BONES:No fracture, dislocation, bone lesion. Small calcaneal degenerative enthesophytes. SOFT TISSUES:No visible soft tissue swelling. EFFUSION:None visible. OTHER: Negative. IMPRESSION: 1. No acute bone abnormality or significant degenerative joint disease. Electronically authenticated by: KINGSLEY CLEMENTS Date: 2021-11-21 16:13[facility]06-30-2022 NoteCONSULTATION CONSULTATION DATE: 10/03/2021 This is [...] patient agrees with the plan of care. [facility] Signed and Approved by: ZELDA MCDANIEL . 10/10/2021 10:22:00[facility] Diagnosis Onset Date Resolution Status Allergies acute Bipolar 2 disorder acute Hypertension acute Morbid obesity with BMI of 45.0-49.9, adult acute OSMANY (obstructive sleep apnea) acute Restless legs syndrome acute [facility] Work Phone: Evaluation noteNo InformationNort [employer] Other Evaluation noteNo assessment information available [facility] Work Phone: Evaluation note* [...] with hematuria- Primary documented in this encounter [facility] HealthcareEvaluation note* Diagnosis Left foot pain- Primary Pain in soft tissues of limb Primary hypertension (CMS/HCC) Unspecified essential hypertension Class 3 severe obesity due to excess calories without serious comorbidity with body mass index (BMI) of 45.0 to 49.9 in adult ([facility]) Encounter for annual wellness visit (AWV) in Medicare patient- Primary OSMANY (obstructive sleep apnea) Obstructive sleep apnea (adult) (pediatric) Chronic pain disorder Chronic pain syndrome Gastroesophageal reflux disease, unspecified whether esophagitis present Overactive bladder Hypertonicity of bladder Lower extremity edema Edema Pre-diabetes Other abnormal glucose Morbid obesity ([facility]) Morbid obesity Yeast infection of the skin Candidiasis of skin and nails Tobacco dependence Tobacco use disorder Mood disorder ([facility]) Unspecified episodic mood disorder Primary hypertension ([facility]) Unspecified essential hypertension Left hip pain Pain in joint, pelvic region and thigh Open wound of anterior abdominal wall, initial encounter Primary hypertension ([facility])- Primary Unspecified essential hypertension Yeast infection of the skin Candidiasis of skin and nails Morbid obesity ([facility]) Morbid obesity Primary hypertension ([facility])- Primary Unspecified essential hypertension Encounter for screening mammogram for malignant neoplasm of breast Gastroesophageal reflux disease, unspecified whether esophagitis present Acute gout of right foot, unspecified cause Osteoporosis, unspecified osteoporosis type, unspecified pathological fracture presence ([facility]) Morbid obesity ([facility]) Morbid obesity Pre-diabetes Other abnormal glucose Anemia, unspecified type Vitamin deficiency Unspecified vitamin deficiency Post-viral cough syndrome Primary hypertension ([facility])- Primary Unspecified essential hypertension Allergic rhinitis, unspecified Acute cough Morbid obesity ([facility]) Morbid obesity Former cigarette smoker Personal history of tobacco use, presenting hazards to health Toxic metabolic encephalopathy- Primary Hemiparesis, right ([facility]) Unspecified hemiplegia affecting unspecified side Acute respiratory failure with hypoxia ([facility]) Heart murmur Undiagnosed cardiac murmurs Primary hypertension ([facility]) Unspecified essential hypertension Morbid obesity ([facility]) Morbid obesity Bipolar disorder with severe depression ([facility]) Slurred speech Other speech disturbance Bilateral lower extremity edema- Primary Primary hypertension ([facility]) Unspecified essential hypertension Lower extremity edema Edema Essential (primary) hypertension ([facility]) Unspecified essential hypertension Gastro-esophageal reflux disease without esophagitis Allergic rhinitis, unspecified Bilateral lower extremity edema- Primary Morbid (severe) obesity due to excess calories ([facility]) Body mass index (BMI) 45.0-49.9, adult ([facility]) Pre-diabetes Other abnormal glucose Bilateral lower extremity edema- Primary Essential (primary) hypertension ([facility]) Unspecified essential hypertension Allergic rhinitis, unspecified OSMANY (obstructive sleep apnea) Obstructive sleep apnea (adult) (pediatric) Primary hypertension ([facility]) Unspecified essential hypertension Morbid obesity ([facility]) Morbid obesity Acute cystitis without hematuria- Primary Tobacco dependence Tobacco use disorder Needs flu shot Need for prophylactic vaccination and inoculation against influenza Morbid obesity ([facility]) Morbid obesity documented in this encounter [facility] HealthcareEvaluation note* Diagnosis Left foot pain- Primary Pain in soft tissues of limb Primary hypertension ([facility]) Unspecified essential hypertension Class 3 severe obesity due to excess calories without serious comorbidity with body mass index (BMI) of 45.0 to 49.9 in adult ([facility]) Encounter for annual wellness visit (AWV) in Medicare patient- Primary OSMANY (obstructive sleep apnea) Obstructive sleep apnea (adult) (pediatric) Chronic pain disorder Chronic pain syndrome Gastroesophageal reflux disease, unspecified whether esophagitis present Overactive bladder Hypertonicity of bladder Lower extremity edema Edema Pre-diabetes Other abnormal glucose Morbid obesity ([facility]) Morbid obesity Yeast infection of the skin Candidiasis of skin and nails Tobacco dependence Tobacco use disorder Mood disorder ([facility]) Unspecified episodic mood disorder Primary hypertension ([facility]) Unspecified essential hypertension Left hip pain Pain in joint, pelvic region and thigh Open wound of anterior abdominal wall, initial encounter Primary hypertension ([facility])- Primary Unspecified essential hypertension Yeast infection of the skin Candidiasis of skin and nails Morbid obesity ([facility] Morbid obesity Primary hypertension ([facility])- Primary Unspecified essential hypertension Encounter for screening mammogram for malignant neoplasm of breast Gastroesophageal reflux disease, unspecified whether esophagitis present Acute gout of right foot, unspecified cause Osteoporosis, unspecified osteoporosis type, unspecified pathological fracture presence ([facility]) Morbid obesity ([facility]) Morbid obesity Pre-diabetes Other abnormal glucose Anemia, unspecified type Vitamin deficiency Unspecified vitamin deficiency Post-viral cough syndrome Primary hypertension ([facility])- Primary Unspecified essential hypertension Allergic rhinitis, unspecified Acute cough Morbid obesity ([facility]) Morbid obesity Former cigarette smoker Personal history of tobacco use, presenting hazards to health Toxic metabolic encephalopathy- Primary Hemiparesis, right ([facility]) Unspecified hemiplegia affecting unspecified side Acute respiratory failure with hypoxia ([facility]) Heart murmur Undiagnosed cardiac murmurs Primary hypertension ([facility]) Unspecified essential hypertension Morbid obesity ([facility]) Morbid obesity Bipolar disorder with severe depression ([facility]) Slurred speech Other speech disturbance Bilateral lower extremity edema- Primary Primary hypertension ([facility]) Unspecified essential hypertension Lower extremity edema Edema Essential (primary) hypertension ([facility]) Unspecified essential hypertension Gastro-esophageal reflux disease without esophagitis Allergic rhinitis, unspecified Bilateral lower extremity edema- Primary Morbid (severe) obesity due to excess calories ([facility]) Body mass index (BMI) 45.0-49.9, adult ([facility]) Pre-diabetes Other abnormal glucose Bilateral lower extremity edema- Primary Essential (primary) hypertension ([facility]) Unspecified essential hypertension Allergic rhinitis, unspecified OSMANY (obstructive sleep apnea) Obstructive sleep apnea (adult) (pediatric) Primary hypertension ([facility]) Unspecified essential hypertension Morbid obesity ([facility]) Morbid obesity Acute cystitis without hematuria- Primary Tobacco dependence Tobacco use disorder Needs flu shot Need for prophylactic vaccination and inoculation against influenza Morbid obesity ([facility]) Morbid obesity Restless leg Restless legs syndrome (RLS) documented in this encounter [facility]* Diagnosis Left foot pain- Primary Pain in soft tissues of limb Primary hypertension ([facility]) Unspecified essential hypertension Class 3 severe obesity due to excess calories without serious comorbidity with body mass index (BMI) of 45.0 to 49.9 in adult ([facility]) Encounter for annual wellness visit (AWV) in Medicare patient- Primary OSMANY (obstructive sleep apnea) Obstructive sleep apnea (adult) (pediatric) Chronic pain disorder Chronic pain syndrome Gastroesophageal reflux disease, unspecified whether esophagitis present Overactive bladder Hypertonicity of bladder Lower extremity edema Edema Pre-diabetes Other abnormal glucose Morbid obesity ([facility]) Morbid obesity Yeast infection of the skin Candidiasis of skin and nails Tobacco dependence Tobacco use disorder Mood disorder ([facility]) Unspecified episodic mood disorder Primary hypertension ([facility]) Unspecified essential hypertension Left hip pain Pain in joint, pelvic region and thigh Open wound of anterior abdominal wall, initial encounter Primary hypertension ([facility])- Primary Unspecified essential hypertension Yeast infection of the skin Candidiasis of skin and nails Morbid obesity ([facility]) Morbid obesity Primary hypertension ([facility])- Primary Unspecified essential hypertension Encounter for screening mammogram for malignant neoplasm of breast Gastroesophageal reflux disease, unspecified whether esophagitis present Acute gout of right foot, unspecified cause Osteoporosis, unspecified osteoporosis type, unspecified pathological fracture presence ([facility]) Morbid obesity ([facility]) Morbid obesity Pre-diabetes Other abnormal glucose Anemia, unspecified type Vitamin deficiency Unspecified vitamin deficiency Post-viral cough syndrome Primary hypertension ([facility])- Primary Unspecified essential hypertension Allergic rhinitis, unspecified Acute cough Morbid obesity ([facility]) Morbid obesity Former cigarette smoker Personal history of tobacco use, presenting hazards to health Toxic metabolic encephalopathy- Primary Hemiparesis, right ([facility]) Unspecified hemiplegia affecting unspecified side Acute respiratory failure with hypoxia ([facility]) Heart murmur Undiagnosed cardiac murmurs Primary hypertension ([facility] Unspecified essential hypertension Morbid obesity ([facility]) Morbid obesity Bipolar disorder with severe depression ([facility]) Slurred speech Other speech disturbance Bilateral lower extremity edema- Primary Primary hypertension ([facility]) Unspecified essential hypertension Lower extremity edema Edema Essential (primary) hypertension ([facility]) Unspecified essential hypertension Gastro-esophageal reflux disease without esophagitis Allergic rhinitis, unspecified Bilateral lower extremity edema- Primary Morbid (severe) obesity due to excess calories ([facility]) Body mass index (BMI) 45.0-49.9, adult ([facility]) Pre-diabetes Other abnormal glucose Bilateral lower extremity edema- Primary Essential (primary) hypertension ([facility]) Unspecified essential hypertension Allergic rhinitis, unspecified OSMANY (obstructive sleep apnea) Obstructive sleep apnea (adult) (pediatric) Primary hypertension ([facility]) Unspecified essential hypertension Morbid obesity ([facility]) Morbid obesity Acute cystitis without hematuria- Primary Tobacco dependence Tobacco use disorder Needs flu shot Need for prophylactic vaccination and inoculation against influenza Morbid obesity ([facility]) Morbid obesity Well woman exam with routine gynecological exam- Primary Routine gynecological examination Morbid obesity ([facility]) Morbid obesity documented in this encounter [facility]* Diagnosis Left foot pain- Primary Pain in soft tissues of limb Primary hypertension ([facility]) Unspecified essential hypertension Class 3 severe obesity due to excess calories without serious comorbidity with body mass index (BMI) of 45.0 to 49.9 in adult ([facility]) Encounter for annual wellness visit (AWV) in Medicare patient- Primary OSMANY (obstructive sleep apnea) Obstructive sleep apnea (adult) (pediatric) Chronic pain disorder Chronic pain syndrome Gastroesophageal reflux disease, unspecified whether esophagitis present Overactive bladder Hypertonicity of bladder Lower extremity edema Edema Pre-diabetes Other abnormal glucose Morbid obesity ([facility]) Morbid obesity Yeast infection of the skin Candidiasis of skin and nails Tobacco dependence Tobacco use disorder Mood disorder ([facility]/H[facility]) Unspecified episodic mood disorder Primary hypertension ([facility]) Unspecified essential hypertension Left hip pain Pain in joint, pelvic region and thigh Open wound of anterior abdominal wall, initial encounter Primary hypertension ([facility])- Primary Unspecified essential hypertension Yeast infection of the skin Candidiasis of skin and nails Morbid obesity ([facility]) Morbid obesity Primary hypertension ([facility])- Primary Unspecified essential hypertension Encounter for screening mammogram for malignant neoplasm of breast Gastroesophageal reflux disease, unspecified whether esophagitis present Acute gout of right foot, unspecified cause Osteoporosis, unspecified osteoporosis type, unspecified pathological fracture presence ([facility]) Morbid obesity ([facility]) Morbid obesity Pre-diabetes Other abnormal glucose Anemia, unspecified type Vitamin deficiency Unspecified vitamin deficiency Post-viral cough syndrome Primary hypertension ([facility])- Primary Unspecified essential hypertension Allergic rhinitis, unspecified Acute cough Morbid obesity ([facility]) Morbid obesity Former cigarette smoker Personal history of tobacco use, presenting hazards to health Toxic metabolic encephalopathy- Primary Hemiparesis, right ([facility]) Unspecified hemiplegia affecting unspecified side Acute respiratory failure with hypoxia ([facility]) Heart murmur Undiagnosed cardiac murmurs Primary hypertension ([facility] Unspecified essential hypertension Morbid obesity ([facility]) Morbid obesity Bipolar disorder with severe depression ([facility]) Slurred speech Other speech disturbance Bilateral lower extremity edema- Primary Primary hypertension ([facility]/HCC) Unspecified essential hypertension Lower extremity edema Edema Essential (primary) hypertension ([facility]) Unspecified essential hypertension Gastro-esophageal reflux disease without esophagitis Allergic rhinitis, unspecified Bilateral lower extremity edema- Primary Morbid (severe) obesity due to excess calories ([facility]) Body mass index (BMI) 45.0-49.9, adult ([facility]) Pre-diabetes Other abnormal glucose Bilateral lower extremity edema- Primary Essential (primary) hypertension ([facility]) Unspecified essential hypertension Allergic rhinitis, unspecified OSMANY (obstructive sleep apnea) Obstructive sleep apnea (adult) (pediatric) Primary hypertension ([facility]) Unspecified essential hypertension Morbid obesity ([facility]) Morbid obesity Acute cystitis without hematuria- Primary Tobacco dependence Tobacco use disorder Needs flu shot Need for prophylactic vaccination and inoculation against influenza Morbid obesity (CMS/HCC) Morbid obesity Well woman exam with routine gynecological exam- Primary Routine gynecological examination Morbid obesity (CMS/HCC) Morbid obesity Essential (primary) hypertension ([facility]) Unspecified essential hypertension Allergic rhinitis, unspecified documented in this encounter [facility]* Diagnosis Left foot pain- Primary Pain in soft tissues of limb Primary hypertension ([facility]) Unspecified essential hypertension Class 3 severe obesity due to excess calories without serious comorbidity with body mass index (BMI) of 45.0 to 49.9 in adult ([facility]) Encounter for annual wellness visit (AWV) in Medicare patient- Primary OSMANY (obstructive sleep apnea) Obstructive sleep apnea (adult) (pediatric) Chronic pain disorder Chronic pain syndrome Gastroesophageal reflux disease, unspecified whether esophagitis present Overactive bladder Hypertonicity of bladder Lower extremity edema Edema Pre-diabetes Other abnormal glucose Morbid obesity ([facility]) Morbid obesity Yeast infection of the skin Candidiasis of skin and nails Tobacco dependence Tobacco use disorder Mood disorder ([facility]) Unspecified episodic mood disorder Primary hypertension ([facility]) Unspecified essential hypertension Left hip pain Pain in joint, pelvic region and thigh Open wound of anterior abdominal wall, initial encounter Primary hypertension ([facility])- Primary Unspecified essential hypertension Yeast infection of the skin Candidiasis of skin and nails Morbid obesity ([facility]) Morbid obesity Primary hypertension ([facility])- Primary Unspecified essential hypertension Encounter for screening mammogram for malignant neoplasm of breast Gastroesophageal reflux disease, unspecified whether esophagitis present Acute gout of right foot, unspecified cause Osteoporosis, unspecified osteoporosis type, unspecified pathological fracture presence ([facility]) Morbid obesity ([facility]) Morbid obesity Pre-diabetes Other abnormal glucose Anemia, unspecified type Vitamin deficiency Unspecified vitamin deficiency Post-viral cough syndrome Primary hypertension ([facility])- Primary Unspecified essential hypertension Allergic rhinitis, unspecified Acute cough Morbid obesity ([facility]) Morbid obesity Former cigarette smoker Personal history of tobacco use, presenting hazards to health Toxic metabolic encephalopathy- Primary Hemiparesis, right ([facility]) Unspecified hemiplegia affecting unspecified side Acute respiratory failure with hypoxia ([facility]) Heart murmur Undiagnosed cardiac murmurs Primary hypertension ([facility] Unspecified essential hypertension Morbid obesity ([facility]) Morbid obesity Bipolar disorder with severe depression ([facility]) Slurred speech Other speech disturbance Bilateral lower extremity edema- Primary Primary hypertension ([facility]) Unspecified essential hypertension Lower extremity edema Edema Essential (primary) hypertension ([facility]) Unspecified essential hypertension Gastro-esophageal reflux disease without esophagitis Allergic rhinitis, unspecified Bilateral lower extremity edema- Primary Morbid (severe) obesity due to excess calories ([facility]) Body mass index (BMI) 45.0-49.9, adult ([facility]) Pre-diabetes Other abnormal glucose Bilateral lower extremity edema- Primary Essential (primary) hypertension ([facility]) Unspecified essential hypertension Allergic rhinitis, unspecified OSMANY (obstructive sleep apnea) Obstructive sleep apnea (adult) (pediatric) Primary hypertension ([facility]) Unspecified essential hypertension Morbid obesity ([facility]) Morbid obesity Acute cystitis without hematuria- Primary Tobacco dependence Tobacco use disorder Needs flu shot Need for prophylactic vaccination and inoculation against influenza Morbid obesity ([facility]) Morbid obesity Well woman exam with routine gynecological exam- Primary Routine gynecological examination Morbid obesity ([facility]) Morbid obesity Allergic rhinitis, unspecified documented in this encounter [facility]* Diagnosis Left foot pain- Primary Pain in soft tissues of limb Primary hypertension ([facility]) Unspecified essential hypertension Class 3 severe obesity due to excess calories without serious comorbidity with body mass index (BMI) of 45.0 to 49.9 in adult ([facility]) Encounter for annual wellness visit (AWV) in Medicare patient- Primary OSMANY (obstructive sleep apnea) Obstructive sleep apnea (adult) (pediatric) Chronic pain disorder Chronic pain syndrome Gastroesophageal reflux disease, unspecified whether esophagitis present Overactive bladder Hypertonicity of bladder Lower extremity edema Edema Pre-diabetes Other abnormal glucose Morbid obesity ([facility]) Morbid obesity Yeast infection of the skin Candidiasis of skin and nails Tobacco dependence Tobacco use disorder Mood disorder ([facility]) Unspecified episodic mood disorder Primary hypertension ([facility]) Unspecified essential hypertension Left hip pain Pain in joint, pelvic region and thigh Open wound of anterior abdominal wall, initial encounter Primary hypertension ([facility])- Primary Unspecified essential hypertension Yeast infection of the skin Candidiasis of skin and nails Morbid obesity ([facility] Morbid obesity Primary hypertension ([facility])- Primary Unspecified essential hypertension Encounter for screening mammogram for malignant neoplasm of breast Gastroesophageal reflux disease, unspecified whether esophagitis present Acute gout of right foot, unspecified cause Osteoporosis, unspecified osteoporosis type, unspecified pathological fracture presence ([facility]) Morbid obesity ([facility]) Morbid obesity Pre-diabetes Other abnormal glucose Anemia, unspecified type Vitamin deficiency Unspecified vitamin deficiency Post-viral cough syndrome Primary hypertension ([facility])- Primary Unspecified essential hypertension Allergic rhinitis, unspecified Acute cough Morbid obesity ([facility]) Morbid obesity Former cigarette smoker Personal history of tobacco use, presenting hazards to health Toxic metabolic encephalopathy- Primary Hemiparesis, right ([facility]) Unspecified hemiplegia affecting unspecified side Acute respiratory failure with hypoxia ([facility]) Heart murmur Undiagnosed cardiac murmurs Primary hypertension ([facility]) Unspecified essential hypertension Morbid obesity ([facility]) Morbid obesity Bipolar disorder with severe depression ([facility]) Slurred speech Other speech disturbance Bilateral lower extremity edema- Primary Primary hypertension ([facility]) Unspecified essential hypertension Lower extremity edema Edema Essential (primary) hypertension ([facility]) Unspecified essential hypertension Gastro-esophageal reflux disease without esophagitis Allergic rhinitis, unspecified Bilateral lower extremity edema- Primary Morbid (severe) obesity due to excess calories ([facility]) Body mass index (BMI) 45.0-49.9, adult ([facility]) Pre-diabetes Other abnormal glucose Bilateral lower extremity edema- Primary Essential (primary) hypertension ([facility]) Unspecified essential hypertension Allergic rhinitis, unspecified OSMANY (obstructive sleep apnea) Obstructive sleep apnea (adult) (pediatric) Primary hypertension ([facility]) Unspecified essential hypertension Morbid obesity ([facility]) Morbid obesity Acute cystitis without hematuria- Primary Tobacco dependence Tobacco use disorder Needs flu shot Need for prophylactic vaccination and inoculation against influenza Morbid obesity ([facility]) Morbid obesity Well woman exam with routine gynecological exam- Primary Routine gynecological examination Morbid obesity ([facility]) Morbid obesity Yeast infection of the skin Candidiasis of skin and nails documented in this encounter [facility] HealthcareEvaluation note* Diagnosis Left foot pain- Primary Pain in soft tissues of limb Primary hypertension ([facility]) Unspecified essential hypertension Class 3 severe obesity due to excess calories without serious comorbidity with body mass index (BMI) of 45.0 to 49.9 in adult ([facility]) Encounter for annual wellness visit (AWV) in Medicare patient- Primary OSMANY (obstructive sleep apnea) Obstructive sleep apnea (adult) (pediatric) Chronic pain disorder Chronic pain syndrome Gastroesophageal reflux disease, unspecified whether esophagitis present Overactive bladder Hypertonicity of bladder Lower extremity edema Edema Pre-diabetes Other abnormal glucose Morbid obesity ([facility]) Morbid obesity Yeast infection of the skin Candidiasis of skin and nails Tobacco dependence Tobacco use disorder Mood disorder ([facility]) Unspecified episodic mood disorder Primary hypertension ([facility]) Unspecified essential hypertension Left hip pain Pain in joint, pelvic region and thigh Open wound of anterior abdominal wall, initial encounter Primary hypertension ([facility])- Primary Unspecified essential hypertension Yeast infection of the skin Candidiasis of skin and nails Morbid obesity ([facility]) Morbid obesity Primary hypertension ([facility])- Primary Unspecified essential hypertension Encounter for screening mammogram for malignant neoplasm of breast Gastroesophageal reflux disease, unspecified whether esophagitis present Acute gout of right foot, unspecified cause Osteoporosis, unspecified osteoporosis type, unspecified pathological fracture presence ([facility]) Morbid obesity ([facility]) Morbid obesity Pre-diabetes Other abnormal glucose Anemia, unspecified type Vitamin deficiency Unspecified vitamin deficiency Post-viral cough syndrome Primary hypertension ([facility])- Primary Unspecified essential hypertension Allergic rhinitis, unspecified Acute cough Morbid obesity ([facility]) Morbid obesity Former cigarette smoker Personal history of tobacco use, presenting hazards to health Toxic metabolic encephalopathy- Primary Hemiparesis, right ([facility]) Unspecified hemiplegia affecting unspecified side Acute respiratory failure with hypoxia ([facility]) Heart murmur Undiagnosed cardiac murmurs Primary hypertension ([facility]) Unspecified essential hypertension Morbid obesity ([facility]) Morbid obesity Bipolar disorder with severe depression ([facility]) Slurred speech Other speech disturbance Bilateral lower extremity edema- Primary Primary hypertension ([facility]) Unspecified essential hypertension Lower extremity edema Edema Essential (primary) hypertension ([facility]) Unspecified essential hypertension Gastro-esophageal reflux disease without esophagitis Allergic rhinitis, unspecified Bilateral lower extremity edema- Primary Morbid (severe) obesity due to excess calories ([facility]) Body mass index (BMI) 45.0-49.9, adult ([facility]) Pre-diabetes Other abnormal glucose Bilateral lower extremity edema- Primary Essential (primary) hypertension ([facility]) Unspecified essential hypertension Allergic rhinitis, unspecified OSMANY (obstructive sleep apnea) Obstructive sleep apnea (adult) (pediatric) Primary hypertension ([facility]) Unspecified essential hypertension Morbid obesity ([facility]) Morbid obesity Acute cystitis without hematuria- Primary Tobacco dependence Tobacco use disorder Needs flu shot Need for prophylactic vaccination and inoculation against influenza Morbid obesity ([facility]/HCC) Morbid obesity Well woman exam with routine gynecological exam- Primary Routine gynecological examination Morbid obesity ([facility]) Morbid obesity Metabolic encephalopathy- Primary OSMANY (obstructive sleep apnea) Obstructive sleep apnea (adult) (pediatric) Restless leg Restless legs syndrome (RLS) 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 ([facility]) Degeneration of intervertebral disc of lumbar region with discogenic back pain and lower extremity pain Memory change Memory loss documented in this encounter [facility] HealthcareEvaluation note* Diagnosis Left foot pain- Primary Pain in soft tissues of limb Primary hypertension (CMS/HCC) Unspecified essential hypertension Class 3 severe obesity due to excess calories without serious comorbidity with body mass index (BMI) of 45.0 to 49.9 in adult ([facility]) Encounter for annual wellness visit [...] Tobacco dependence Tobacco use disorder Mood disorder ([facility]) Unspecified episodic mood disorder Primary hypertension ([facility]) Unspecified essential hypertension Left hip pain Pain in joint, pelvic region and thigh Open wound of anterior abdominal wall, initial encounter Primary hypertension (CMS/HCC)- Primary Unspecified essential hypertension Yeast infection of the skin Candidiasis of skin and nails Morbid obesity ([facility]) Morbid obesity Primary hypertension ([facility]/HCC)- Primary Unspecified essential hypertension Encounter for screening mammogram for malignant neoplasm of breast Gastroesophageal reflux disease, unspecified whether esophagitis present Acute gout of right foot, unspecified cause Osteoporosis, unspecified osteoporosis type, unspecified pathological fracture presence ([facility]) Morbid obesity ([facility]) Morbid obesity Pre-diabetes Other abnormal glucose Anemia, unspecified type Vitamin deficiency Unspecified vitamin deficiency Post-viral cough syndrome Primary hypertension (CMS/HCC)- Primary Unspecified essential hypertension Allergic rhinitis, unspecified Acute cough Morbid obesity (CMS/[facility]) Morbid obesity Former cigarette smoker Personal history of tobacco use, presenting hazards to health Toxic metabolic encephalopathy- Primary Hemiparesis, right (CMS/[facility]) Unspecified hemiplegia affecting unspecified side Acute respiratory failure with hypoxia ([facility]) Heart murmur Undiagnosed cardiac murmurs Primary hypertension (CMS/HCC) Unspecified essential hypertension Morbid obesity (CMS/HCC) Morbid obesity Bipolar disorder with severe depression (CMS/[facility]) Slurred speech Other speech disturbance Bilateral lower extremity edema- Primary Primary hypertension (CMS/HCC) Unspecified essential hypertension Lower extremity edema Edema Essential (primary) hypertension ([facility]) Unspecified essential hypertension Gastro-esophageal reflux disease without esophagitis Allergic rhinitis, unspecified Bilateral lower extremity edema- Primary Morbid (severe) obesity due to excess calories ([facility]) Body mass index (BMI) 45.0-49.9, adult ([facility]) Pre-diabetes Other abnormal glucose Bilateral lower extremity edema- Primary Essential (primary) hypertension ([facility]) Unspecified essential hypertension Allergic rhinitis, unspecified OSMANY (obstructive sleep apnea) Obstructive sleep apnea (adult) (pediatric) Primary hypertension ([facility]) Unspecified essential hypertension Morbid obesity ([facility]) Morbid obesity Acute cystitis without hematuria- Primary Tobacco dependence Tobacco use disorder Needs flu shot Need for prophylactic vaccination and inoculation against influenza Morbid obesity ([facility]) Morbid obesity Well woman exam with routine gynecological exam- Primary Routine gynecological examination Morbid obesity ([facility]) Morbid obesity Altered mental status, unspecified altered mental status type- Primary Restless leg Restless legs syndrome (RLS) 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[facility]) OSMANY (obstructive sleep apnea) Obstructive sleep apnea (adult) (pediatric) documented in this encounter [facility] HealthcareEvaluation note* Diagnosis Left foot pain- Primary Pain in soft tissues of limb Primary hypertension ([facility]) Unspecified essential hypertension Class 3 severe obesity due to excess calories without serious comorbidity with body mass index (BMI) of 45.0 to 49.9 in adult ([facility]) Encounter for annual wellness visit (AWV) in Medicare patient- Primary OSMANY (obstructive sleep apnea) Obstructive sleep apnea (adult) (pediatric) Chronic pain disorder Chronic pain syndrome Gastroesophageal reflux disease, unspecified whether esophagitis present Overactive bladder Hypertonicity of bladder Lower extremity edema Edema Pre-diabetes Other abnormal glucose Morbid obesity ([facility]) Morbid obesity Yeast infection of the skin Candidiasis of skin and nails Tobacco dependence Tobacco use disorder Mood disorder ([facility]) Unspecified episodic mood disorder Primary hypertension ([facility]) Unspecified essential hypertension Left hip pain Pain in joint, pelvic region and thigh Open wound of anterior abdominal wall, initial encounter Primary hypertension ([facility])- Primary Unspecified essential hypertension Yeast infection of the skin Candidiasis of skin and nails Morbid obesity ([facility]) Morbid obesity Primary hypertension ([facility])- Primary Unspecified essential hypertension Encounter for screening mammogram for malignant neoplasm of breast Gastroesophageal reflux disease, unspecified whether esophagitis present Acute gout of right foot, unspecified cause Osteoporosis, unspecified osteoporosis type, unspecified pathological fracture presence ([facility]) Morbid obesity ([facility]) Morbid obesity Pre-diabetes Other abnormal glucose Anemia, unspecified type Vitamin deficiency Unspecified vitamin deficiency Post-viral cough syndrome Primary hypertension ([facility])- Primary Unspecified essential hypertension Allergic rhinitis, unspecified Acute cough Morbid obesity ([facility]) Morbid obesity Former cigarette smoker Personal history of tobacco use, presenting hazards to health Toxic metabolic encephalopathy- Primary Hemiparesis, right ([facility]) Unspecified hemiplegia affecting unspecified side Acute respiratory failure with hypoxia ([facility]) Heart murmur Undiagnosed cardiac murmurs Primary hypertension ([facility] Unspecified essential hypertension Morbid obesity ([facility]) Morbid obesity Bipolar disorder with severe depression ([facility]) Slurred speech Other speech disturbance Bilateral lower extremity edema- Primary Primary hypertension ([facility]) Unspecified essential hypertension Lower extremity edema Edema Essential (primary) hypertension ([facility]) Unspecified essential hypertension Gastro-esophageal reflux disease without esophagitis Allergic rhinitis, unspecified Bilateral lower extremity edema- Primary Morbid (severe) obesity due to excess calories ([facility]) Body mass index (BMI) 45.0-49.9, adult ([facility]) Pre-diabetes Other abnormal glucose Bilateral lower extremity edema- Primary Essential (primary) hypertension ([facility]) Unspecified essential hypertension Allergic rhinitis, unspecified OSMANY (obstructive sleep apnea) Obstructive sleep apnea (adult) (pediatric) Primary hypertension ([facility]) Unspecified essential hypertension Morbid obesity ([facility]) Morbid obesity Acute cystitis without hematuria- Primary Tobacco dependence Tobacco use disorder Needs flu shot Need for prophylactic vaccination and inoculation against influenza Morbid obesity ([facility]) Morbid obesity Well woman exam with routine gynecological exam- Primary Routine gynecological examination Morbid obesity ([facility]) Morbid obesity Altered mental status, unspecified altered mental status type- Primary Memory change Memory loss Concentration deficit 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 ([facility]) PTSD (post-traumatic stress disorder) ([facility]) Posttraumatic stress disorder Bipolar affective disorder, remission status unspecified ([facility]) Family history of dementia Family [...] Edema Pre-diabetes Other abnormal glucose Morbid obesity ([facility]/HCC) Morbid obesity Yeast infection of the skin Candidiasis of skin and nails Tobacco dependence Tobacco use disorder Mood disorder ([facility]) Unspecified episodic mood disorder Primary hypertension ([facility]) Unspecified essential hypertension Left hip pain Pain in joint, pelvic region and thigh Open wound of anterior abdominal wall, initial encounter Primary hypertension ([facility]/HCC)- Primary Unspecified essential hypertension Yeast infection of the skin Candidiasis of skin and nails Morbid obesity ([facility]) Morbid obesity Primary hypertension ([facility])- Primary Unspecified essential hypertension Allergic rhinitis, unspecified Acute cough Morbid obesity ([facility]) Morbid obesity Former cigarette smoker Personal history of tobacco use, presenting hazards to health Toxic metabolic encephalopathy- Primary Hemiparesis, right ([facility]) Unspecified hemiplegia affecting unspecified side Acute respiratory failure with hypoxia ([facility]) Heart murmur Undiagnosed cardiac murmurs Primary hypertension ([facility] Unspecified essential hypertension Morbid obesity ([facility]) Morbid obesity Bipolar disorder with severe depression ([facility]) Slurred speech Other speech disturbance Bilateral lower extremity edema- Primary Primary hypertension ([facility]) Unspecified essential hypertension Lower extremity edema Edema Essential (primary) hypertension ([facility]) Unspecified essential hypertension Gastro-esophageal reflux disease without esophagitis Allergic rhinitis, unspecified Bilateral lower extremity edema- Primary Morbid (severe) obesity due to excess calories ([facility]) Body mass index (BMI) 45.0-49.9, adult ([facility]) Pre-diabetes Other abnormal glucose Bilateral lower extremity edema- Primary Essential (primary) hypertension ([facility]) Unspecified essential hypertension Allergic rhinitis, unspecified OSMANY (obstructive sleep apnea) Obstructive sleep apnea (adult) (pediatric) Primary hypertension ([facility]) Unspecified essential hypertension Morbid obesity ([facility]) Morbid obesity Acute cystitis without hematuria- Primary Tobacco dependence Tobacco use disorder Needs flu shot Need for prophylactic vaccination and inoculation against influenza Morbid obesity ([facility]/HCC) Morbid obesity Well woman exam with routine gynecological exam- Primary Routine gynecological examination Morbid obesity (CMS/HCC) Morbid obesity Restless leg Restless legs syndrome (RLS) Metabolic encephalopathy- Primary OSMANY (obstructive sleep apnea) Obstructive sleep apnea (adult) (pediatric) Morbid obesity ([facility]/HCC) Morbid obesity Bilateral lower extremity edema Tobacco dependence Tobacco use disorder Bipolar disorder with severe depression ([facility]) At risk for polypharmacy Anxiety Anxiety state, unspecified documented in this encounter [facility] HealthcareEvaluation note* Diagnosis Encounter for annual wellness visit (AWV) in Medicare patient- Primary OSMANY (obstructive sleep apnea) Obstructive sleep apnea (adult) (pediatric) Chronic pain disorder Chronic pain syndrome Gastroesophageal reflux disease, unspecified whether esophagitis present Overactive bladder Hypertonicity of bladder Lower extremity edema Edema Pre-diabetes Other abnormal glucose Morbid obesity ([facility]/HCC) Morbid obesity Yeast infection of the skin Candidiasis of skin and nails Tobacco dependence Tobacco use disorder Mood disorder ([facility]/HCC) Unspecified episodic mood disorder Primary hypertension ([facility]) Unspecified essential hypertension Left hip pain Pain in joint, pelvic region and thigh Open wound of anterior abdominal wall, initial encounter Primary hypertension ([facility]/HCC)- Primary Unspecified essential hypertension Yeast infection of the skin Candidiasis of skin and nails Morbid obesity ([facility]) Morbid obesity Primary hypertension ([facility])- Primary Unspecified essential hypertension Allergic rhinitis, unspecified Acute cough Morbid obesity ([facility]) Morbid obesity Former cigarette smoker Personal history of tobacco use, presenting hazards to health Toxic metabolic encephalopathy- Primary Hemiparesis, right ([facility]) Unspecified hemiplegia affecting unspecified side Acute respiratory failure with hypoxia ([facility]) Heart murmur Undiagnosed cardiac murmurs Primary hypertension ([facility]) Unspecified essential hypertension Morbid obesity ([facility]) Morbid obesity Bipolar disorder with severe depression ([facility]) Slurred speech Other speech disturbance Bilateral lower extremity edema- Primary Primary hypertension ([facility]) Unspecified essential hypertension Lower extremity edema Edema Essential (primary) hypertension ([facility]) Unspecified essential hypertension Gastro-esophageal reflux disease without esophagitis Allergic rhinitis, unspecified Bilateral lower extremity edema- Primary Morbid (severe) obesity due to excess calories ([facility]) Body mass index (BMI) 45.0-49.9, adult ([facility]) Pre-diabetes Other abnormal glucose Bilateral lower extremity edema- Primary Essential (primary) hypertension ([facility]/HCC) Unspecified essential hypertension Allergic rhinitis, unspecified OSMANY (obstructive sleep apnea) Obstructive sleep apnea (adult) (pediatric) Primary hypertension (CMS/HCC) Unspecified essential hypertension Morbid obesity ([facility]) Morbid obesity Acute cystitis without hematuria- Primary Tobacco dependence Tobacco use disorder Needs flu shot Need for prophylactic vaccination and inoculation against influenza Morbid obesity ([facility]/HCC) Morbid obesity Well woman exam with routine gynecological exam- Primary Routine gynecological examination Morbid obesity ([facility]/HCC) Morbid obesity Metabolic encephalopathy- Primary OSMANY (obstructive sleep apnea) Obstructive sleep apnea (adult) (pediatric) Morbid obesity ([facility]/HCC) Morbid obesity Bilateral lower extremity edema Tobacco dependence Tobacco use disorder Bipolar disorder with severe depression ([facility]) At risk for polypharmacy Anxiety Anxiety state, unspecified Primary hypertension ([facility]) Unspecified essential hypertension Right bundle branch block (RBBB) determined by electrocardiography documented in this encounter [facility] HealthcareEvaluation note* Diagnosis Yeast infection of the skin- Primary Candidiasis of skin and nails documented in this encounter [facility] HealthcareEvaluation note* Diagnosis 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[facility])- Primary Restless leg Restless legs syndrome (RLS) Metabolic encephalopathy documented in this encounter [facility] HealthcareEvaluation note* Diagnosis OSMANY (obstructive sleep apnea)- Primary Obstructive sleep apnea (adult) (pediatric) Restless leg Restless legs syndrome (RLS) documented in this encounter [facility] HealthcareEvaluation note* Diagnosis Bilateral lower extremity edema- Primary Essential (primary) hypertension ([facility]) Unspecified essential hypertension Allergic rhinitis, unspecified OSMANY (obstructive sleep apnea) Obstructive sleep apnea (adult) (pediatric) Primary hypertension ([facility]) Unspecified essential hypertension Morbid obesity ([facility]) Morbid obesity documented in this [...] Edema Pre-diabetes Other abnormal glucose Morbid obesity ([facility]/HCC) Morbid obesity Yeast infection of the skin Candidiasis of skin and nails Tobacco dependence Tobacco use disorder Mood disorder ([facility]) Unspecified episodic mood disorder Primary hypertension ([facility]) Unspecified essential hypertension Left hip pain Pain in joint, pelvic region and thigh Open wound of anterior abdominal wall, initial encounter Primary hypertension ([facility])- Primary Unspecified essential hypertension Yeast infection of the skin Candidiasis of skin and nails Morbid obesity ([facility]) Morbid obesity Primary hypertension ([facility])- Primary Unspecified essential hypertension Allergic rhinitis, unspecified Acute cough Morbid obesity ([facility]/HCC) Morbid obesity Former cigarette smoker Personal history of tobacco use, presenting hazards to health Toxic metabolic encephalopathy- Primary Hemiparesis, right ([facility]) Unspecified hemiplegia affecting unspecified side Acute respiratory failure with hypoxia ([facility]) Heart murmur Undiagnosed cardiac murmurs Primary hypertension ([facility]/HCC) Unspecified essential hypertension Morbid obesity ([facility]/HCC) Morbid obesity Bipolar disorder with severe depression ([facility]) Slurred speech Other speech disturbance Bilateral lower extremity edema- Primary Primary hypertension ([facility]/HCC) Unspecified essential hypertension Lower extremity edema Edema Essential (primary) hypertension ([facility]) Unspecified essential hypertension Gastro-esophageal reflux disease without esophagitis Allergic rhinitis, unspecified Bilateral lower extremity edema- Primary Morbid (severe) obesity due to excess calories ([facility]) Body mass index (BMI) 45.0-49.9, adult ([facility]) Pre-diabetes Other abnormal glucose Bilateral lower extremity edema- Primary Essential (primary) hypertension ([facility]) Unspecified essential hypertension Allergic rhinitis, unspecified OSMANY (obstructive sleep apnea) Obstructive sleep apnea (adult) (pediatric) Primary hypertension ([facility]) Unspecified essential hypertension Morbid obesity ([facility]) Morbid obesity Acute cystitis without hematuria- Primary Tobacco dependence Tobacco use disorder Needs flu shot Need for prophylactic vaccination and inoculation against influenza Morbid obesity ([facility]/HCC) Morbid obesity Well woman exam with routine gynecological exam- Primary Routine gynecological examination Morbid obesity ([facility]/HCC) Morbid obesity Metabolic encephalopathy- Primary OSMANY (obstructive sleep apnea) Obstructive sleep apnea (adult) (pediatric) Morbid obesity ([facility]) Morbid obesity Bilateral lower extremity edema Tobacco dependence Tobacco use disorder Bipolar disorder with severe depression ([facility]) At risk for polypharmacy Anxiety Anxiety state, unspecified Primary hypertension ([facility]) Unspecified essential hypertension Right bundle branch block (RBBB) determined by electrocardiography Metabolic encephalopathy- Primary Memory change Memory loss Altered mental status, unspecified altered mental status type Concentration deficit PTSD (post-traumatic stress disorder) ([facility]) Posttraumatic stress disorder Bipolar affective disorder, remission status unspecified ([facility]) Family history of dementia Family history of other neurological diseases 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[facility]) OSMANY (obstructive sleep apnea) Obstructive [...] Edema Pre-diabetes Other abnormal glucose Morbid obesity ([facility]/HCC) Morbid obesity Yeast infection of the skin Candidiasis of skin and nails Tobacco dependence Tobacco use disorder Mood disorder ([facility]/HCC) Unspecified episodic mood disorder Primary hypertension ([facility]) Unspecified essential hypertension Left hip pain Pain in joint, pelvic region and thigh Open wound of anterior abdominal wall, initial encounter Primary hypertension ([facility]/HCC)- Primary Unspecified essential hypertension Yeast infection of the skin Candidiasis of skin and nails Morbid obesity ([facility]/HCC) Morbid obesity Primary hypertension ([facility])- Primary Unspecified essential hypertension Allergic rhinitis, unspecified Acute cough Morbid obesity ([facility]) Morbid obesity Former cigarette smoker Personal history of tobacco use, presenting hazards to health Toxic metabolic encephalopathy- Primary Hemiparesis, right ([facility]) Unspecified hemiplegia affecting unspecified side Acute respiratory failure with hypoxia ([facility]) Heart murmur Undiagnosed cardiac murmurs Primary hypertension ([facility] Unspecified essential hypertension Morbid obesity ([facility]) Morbid obesity Bipolar disorder with severe depression ([facility]) Slurred speech Other speech disturbance Bilateral lower extremity edema- Primary Primary hypertension ([facility]) Unspecified essential hypertension Lower extremity edema Edema Essential (primary) hypertension ([facility]) Unspecified essential hypertension Gastro-esophageal reflux disease without esophagitis Allergic rhinitis, unspecified Bilateral lower extremity edema- Primary Morbid (severe) obesity due to excess calories ([facility]) Body mass index (BMI) 45.0-49.9, adult ([facility]) Pre-diabetes Other abnormal glucose Bilateral lower extremity edema- Primary Essential (primary) hypertension ([facility]) Unspecified essential hypertension Allergic rhinitis, unspecified OSMANY (obstructive sleep apnea) Obstructive sleep apnea (adult) (pediatric) Primary hypertension ([facility]/HCC) Unspecified essential hypertension Morbid obesity ([facility]) Morbid obesity Acute cystitis without [...] use disorder Bipolar disorder with severe depression ([facility]) At risk for polypharmacy Anxiety Anxiety state, unspecified Primary hypertension (CMS/HCC) Unspecified essential hypertension Right bundle branch block (RBBB) determined by electrocardiography Transient alteration of awareness- Primary Restless leg Restless legs syndrome (RLS) documented in this encounter [facility] HealthcareEvaluation note* Diagnosis Encounter for annual [...] (CMS/HCC) Unspecified episodic mood disorder Primary hypertension ([facility]) Unspecified essential hypertension Left hip pain Pain in joint, pelvic region and thigh Open wound of anterior abdominal wall, initial encounter Primary hypertension (CMS/HCC)- Primary Unspecified essential hypertension Yeast infection of the skin Candidiasis of skin and nails Morbid obesity (CMS/HCC) Morbid obesity Primary hypertension ([facility])- Primary Unspecified essential hypertension Allergic rhinitis, unspecified Acute cough Morbid obesity ([facility]) Morbid obesity Former cigarette smoker Personal history of tobacco use, presenting hazards to health Toxic metabolic encephalopathy- Primary Hemiparesis, right ([facility]) Unspecified hemiplegia affecting unspecified side Acute respiratory failure with hypoxia ([facility]) Heart murmur Undiagnosed cardiac murmurs Primary hypertension ([facility] Unspecified essential hypertension Morbid obesity ([facility]) Morbid obesity Bipolar disorder with severe depression ([facility]) Slurred speech Other speech disturbance Bilateral lower extremity edema- Primary Primary hypertension ([facility]/HCC) Unspecified essential hypertension Lower extremity edema Edema Essential (primary) hypertension ([facility]) Unspecified essential hypertension Gastro-esophageal reflux disease without esophagitis Allergic rhinitis, unspecified Bilateral lower extremity edema- Primary Morbid (severe) obesity due to excess calories ([facility]) Body mass index (BMI) 45.0-49.9, adult ([facility]) Pre-diabetes Other abnormal glucose Bilateral lower extremity edema- Primary Essential (primary) hypertension ([facility]/HCC) Unspecified essential hypertension Allergic rhinitis, unspecified OSMANY (obstructive sleep apnea) Obstructive sleep apnea (adult) (pediatric) Primary hypertension ([facility]) Unspecified essential hypertension Morbid obesity ([facility]) Morbid obesity Acute cystitis without hematuria- Primary Tobacco dependence Tobacco use disorder Needs flu shot Need for prophylactic vaccination and inoculation against influenza Morbid obesity ([facility]/HCC) Morbid obesity Well woman exam with routine gynecological exam- Primary Routine gynecological examination Morbid obesity ([facility]/HCC) Morbid obesity Metabolic encephalopathy- Primary OSMANY (obstructive sleep apnea) Obstructive sleep apnea (adult) (pediatric) Morbid obesity ([facility]) Morbid obesity Bilateral lower extremity edema Tobacco dependence Tobacco use disorder Bipolar disorder with severe depression ([facility]) At risk for polypharmacy Anxiety Anxiety state, unspecified Primary hypertension ([facility]) Unspecified essential hypertension Right bundle branch block (RBBB) determined by electrocardiography Primary hypertension ([facility])- Primary Unspecified essential hypertension Chronic kidney disease, stage 3a ([facility]) ([facility]) Morbid (severe) obesity due to excess calories ([facility]) Body mass index (BMI) 45.0-49.9, adult ([facility]) OSMANY (obstructive sleep apnea) Obstructive sleep apnea (adult) (pediatric) Hemiparesis, right ([facility]) Unspecified hemiplegia affecting unspecified side Gastroesophageal reflux disease, unspecified whether esophagitis present Metabolic encephalopathy Essential (primary) hypertension ([facility]) Unspecified essential hypertension Allergic rhinitis, unspecified Gastro-esophageal reflux disease without esophagitis Bilateral lower extremity edema documented in this encounter [facility] HealthcareEvaluation note* Diagnosis Encounter for annual wellness visit (AWV) in Medicare patient- Primary OSMANY (obstructive sleep apnea) Obstructive sleep apnea (adult) (pediatric) Chronic pain disorder Chronic pain syndrome Gastroesophageal reflux disease, unspecified whether esophagitis present Overactive bladder Hypertonicity of bladder Lower extremity edema Edema Pre-diabetes Other abnormal glucose Morbid obesity ([facility]) Morbid obesity Yeast infection of the skin Candidiasis of skin and nails Tobacco dependence Tobacco use disorder Mood disorder ([facility]) Unspecified episodic mood disorder Primary hypertension ([facility]) Unspecified essential hypertension Left hip pain Pain in joint, pelvic region and thigh Open wound of anterior abdominal wall, initial encounter Primary hypertension ([facility])- Primary Unspecified essential hypertension Yeast infection of the skin Candidiasis of skin and nails Morbid obesity ([facility]) Morbid obesity Primary hypertension ([facility])- Primary Unspecified essential hypertension Allergic rhinitis, unspecified Acute cough Morbid obesity ([facility]/HCC) Morbid obesity Former cigarette smoker Personal history of tobacco use, presenting hazards to health Toxic metabolic encephalopathy- Primary Hemiparesis, right ([facility]) Unspecified hemiplegia affecting unspecified side Acute respiratory failure with hypoxia ([facility]) Heart murmur Undiagnosed cardiac murmurs Primary hypertension ([facility]/HCC) Unspecified essential hypertension Morbid obesity ([facility]/HCC) Morbid obesity Bipolar disorder with severe depression ([facility]) Slurred speech Other speech disturbance Bilateral lower extremity edema- Primary Primary hypertension ([facility]/HCC) Unspecified essential hypertension Lower extremity edema Edema Essential (primary) hypertension ([facility]/HCC) Unspecified essential hypertension Gastro-esophageal reflux disease without esophagitis Allergic rhinitis, unspecified Bilateral lower extremity edema- Primary Morbid (severe) obesity due to excess calories ([facility]) Body mass index (BMI) 45.0-49.9, adult ([facility]) Pre-diabetes Other abnormal glucose Bilateral lower extremity edema- Primary Essential (primary) hypertension ([facility]/HCC) Unspecified essential hypertension Allergic rhinitis, unspecified OSMANY (obstructive sleep apnea) Obstructive sleep apnea (adult) (pediatric) Primary hypertension ([facility]) Unspecified essential hypertension Morbid obesity ([facility] HEALTH/[facility]) Morbid obesity Acute cystitis without hematuria- Primary Tobacco dependence Tobacco use disorder Needs flu shot Need for prophylactic vaccination and inoculation against influenza Morbid obesity ([facility]/HCC) Morbid obesity Well woman exam with routine gynecological exam- Primary Routine gynecological examination Morbid obesity ([facility]/HCC) Morbid obesity Metabolic encephalopathy- Primary OSMANY (obstructive sleep apnea) Obstructive sleep apnea (adult) (pediatric) Morbid obesity ([facility]) Morbid obesity Bilateral lower extremity edema Tobacco dependence Tobacco use disorder Bipolar disorder with severe depression ([facility]) At risk for polypharmacy Anxiety Anxiety state, unspecified Primary hypertension ([facility]) Unspecified essential hypertension Right bundle branch block (RBBB) determined by electrocardiography Primary hypertension ([facility]/HCC)- Primary Unspecified essential hypertension Chronic kidney disease, stage 3a (HCC) ([facility]) Morbid (severe) obesity due to excess calories ([facility]) Body mass index (BMI) 45.0-49.9, adult ([facility]) OSMANY (obstructive sleep apnea) Obstructive sleep apnea (adult) (pediatric) Hemiparesis, right ([facility]) Unspecified hemiplegia affecting unspecified side Gastroesophageal reflux disease, unspecified whether esophagitis present Metabolic encephalopathy Essential (primary) hypertension (CMS/HCC) Unspecified essential hypertension Allergic rhinitis, unspecified Gastro-esophageal reflux disease without esophagitis Bilateral lower extremity edema 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 (CMS/[facility])- Primary OSMANY (obstructive sleep apnea) Obstructive sleep apnea (adult) (pediatric) Metabolic encephalopathy Restless leg Restless legs syndrome (RLS) Degeneration of intervertebral disc of lumbar region with discogenic back pain and lower extremity pain documented in this encounter [facility] HealthcareEvaluation note* Diagnosis Encounter for annual [...] metabolic encephalopathy- Primary Hemiparesis, right (CMS/[facility]) Unspecified hemiplegia affecting unspecified side Acute respiratory failure with hypoxia ([facility]) Heart murmur Undiagnosed cardiac murmurs Primary hypertension (CMS/HCC) Unspecified essential hypertension Morbid obesity (CMS/HCC) Morbid obesity Bipolar disorder with severe depression (CMS/[facility]) Slurred speech Other speech disturbance Bilateral lower extremity edema- Primary Primary hypertension (CMS/HCC) Unspecified essential hypertension Lower extremity edema Edema Essential (primary) hypertension (CMS/HCC) Unspecified essential hypertension Gastro-esophageal reflux disease without esophagitis Allergic rhinitis, unspecified Bilateral lower extremity edema- Primary Morbid (severe) obesity due to excess calories ([facility]) Body mass index (BMI) 45.0-49.9, adult ([facility]) Pre-diabetes Other abnormal glucose Bilateral lower extremity edema- Primary Essential (primary) hypertension (CMS/HCC) Unspecified essential hypertension Allergic rhinitis, unspecified OSMANY (obstructive sleep apnea) Obstructive sleep apnea (adult) (pediatric) Primary hypertension ([facility]/HCC) Unspecified essential hypertension Morbid obesity ([facility]/HCC) Morbid obesity Acute cystitis without hematuria- Primary Tobacco dependence Tobacco use disorder Needs flu shot Need for prophylactic vaccination and inoculation against influenza Morbid obesity ([facility]/HCC) Morbid obesity Well woman exam with routine gynecological exam- Primary Routine gynecological examination Morbid obesity ([facility]/HCC) Morbid obesity Metabolic encephalopathy- Primary OSMANY (obstructive sleep apnea) Obstructive sleep apnea (adult) (pediatric) Morbid obesity ([facility]/HCC) Morbid obesity Bilateral lower extremity edema Tobacco dependence Tobacco use disorder Bipolar disorder with severe depression ([facility]) At risk for polypharmacy Anxiety Anxiety state, unspecified Primary hypertension ([facility]) Unspecified essential hypertension Right bundle branch block (RBBB) determined by electrocardiography Primary hypertension ([facility])- Primary Unspecified essential hypertension Chronic kidney disease, stage 3a ([facility]) ([facility]) Morbid (severe) obesity due to excess calories ([facility]) Body mass index (BMI) 45.0-49.9, adult ([facility]) OSMANY (obstructive sleep apnea) Obstructive sleep apnea (adult) (pediatric) Hemiparesis, right ([facility]) Unspecified hemiplegia affecting unspecified side Gastroesophageal reflux disease, unspecified whether esophagitis present Metabolic encephalopathy Essential (primary) hypertension ([facility]) Unspecified essential hypertension Allergic rhinitis, [...] Edema Pre-diabetes Other abnormal glucose Morbid obesity ([facility]/HCC) Morbid obesity Yeast infection of the skin Candidiasis of skin and nails Tobacco dependence Tobacco use disorder Mood disorder ([facility]/HCC) Unspecified episodic mood disorder Primary hypertension ([facility]/HCC) Unspecified essential hypertension Left hip pain Pain in joint, pelvic region and thigh Open wound of anterior abdominal wall, initial encounter Primary hypertension ([facility])- Primary Unspecified essential hypertension Yeast infection of the skin Candidiasis of skin and nails Morbid obesity ([facility]/HCC) Morbid obesity Primary hypertension ([facility]/HCC)- Primary Unspecified essential hypertension Allergic rhinitis, unspecified Acute cough Morbid obesity ([facility]/HCC) Morbid obesity Former cigarette smoker Personal history of tobacco use, presenting hazards to health Toxic metabolic encephalopathy- Primary Hemiparesis, right ([facility]) Unspecified hemiplegia affecting unspecified side Acute respiratory failure with hypoxia ([facility]) Heart murmur Undiagnosed cardiac murmurs Primary hypertension ([facility]) Unspecified essential hypertension Morbid obesity ([facility]) Morbid obesity Bipolar disorder with severe depression ([facility]) Slurred speech Other speech disturbance Bilateral lower extremity edema- Primary Primary hypertension ([facility]/HCC) Unspecified essential hypertension Lower extremity edema Edema Essential (primary) hypertension ([facility]) Unspecified essential hypertension Gastro-esophageal reflux disease without esophagitis Allergic rhinitis, unspecified Bilateral lower extremity edema- Primary Morbid (severe) obesity due to excess calories ([facility]) Body mass index (BMI) 45.0-49.9, adult ([facility]) Pre-diabetes Other abnormal glucose Bilateral lower extremity edema- Primary Essential (primary) hypertension ([facility]) Unspecified essential hypertension Allergic rhinitis, unspecified OSMANY (obstructive sleep apnea) Obstructive sleep apnea (adult) (pediatric) Primary hypertension ([facility]) Unspecified essential hypertension Morbid obesity ([facility]) Morbid obesity Acute cystitis without hematuria- Primary Tobacco dependence Tobacco use disorder Needs flu shot Need for prophylactic vaccination and inoculation against influenza Morbid obesity ([facility]/HCC) Morbid obesity Well woman exam with routine gynecological exam- Primary Routine gynecological examination Morbid obesity ([facility]) Morbid obesity Metabolic encephalopathy- Primary OSMANY (obstructive sleep apnea) Obstructive sleep apnea (adult) (pediatric) Morbid obesity ([facility]) Morbid obesity Bilateral lower extremity edema Tobacco dependence Tobacco use disorder Bipolar disorder with severe depression ([facility]) At risk for polypharmacy Anxiety Anxiety state, unspecified Primary hypertension ([facility]) Unspecified essential hypertension Right bundle branch block (RBBB) determined by electrocardiography Primary hypertension ([facility])- Primary Unspecified essential hypertension Chronic kidney disease, stage 3a (HCC) ([facility]) Morbid (severe) obesity due to excess calories ([facility]) Body mass index (BMI) 45.0-49.9, adult ([facility]) OSMANY (obstructive sleep apnea) Obstructive sleep apnea (adult) (pediatric) Hemiparesis, right ([facility]) Unspecified hemiplegia affecting unspecified side Gastroesophageal reflux disease, unspecified whether esophagitis present Metabolic encephalopathy Essential (primary) hypertension (CMS/HCC) Unspecified essential hypertension Allergic rhinitis, unspecified Gastro-esophageal reflux disease without esophagitis Bilateral lower extremity edema URI, acute- Primary Acute upper respiratory infections of unspecified site documented in this encounter [facility] HealthcareEvaluation note* [...] Tobacco dependence Tobacco use disorder Mood disorder (CMS/[facility]) Unspecified episodic mood disorder Primary hypertension ([facility]) Unspecified essential hypertension Left hip pain Pain in joint, pelvic region and thigh Open wound of anterior abdominal wall, initial encounter Primary hypertension ([facility]/HCC)- Primary Unspecified essential hypertension Yeast infection of the skin Candidiasis of skin and nails Morbid obesity ([facility] Morbid obesity Primary hypertension ([facility])- Primary Unspecified essential hypertension Allergic rhinitis, unspecified Acute cough Morbid obesity ([facility]) Morbid obesity Former cigarette smoker Personal history of tobacco use, presenting hazards to health Toxic metabolic encephalopathy- Primary Hemiparesis, right ([facility]) Unspecified hemiplegia affecting unspecified side Acute respiratory failure with hypoxia ([facility]) Heart murmur Undiagnosed cardiac murmurs Primary hypertension ([facility] Unspecified essential hypertension Morbid obesity ([facility]) Morbid obesity Bipolar disorder with severe depression ([facility]) Slurred speech Other speech disturbance Bilateral lower extremity edema- Primary Primary hypertension (CMS/HCC) Unspecified essential hypertension Lower extremity edema Edema Essential (primary) hypertension ([facility]) Unspecified essential hypertension Gastro-esophageal reflux disease without esophagitis Allergic rhinitis, unspecified Bilateral lower extremity edema- Primary Morbid (severe) obesity due to excess calories ([facility]) Body mass index (BMI) 45.0-49.9, adult ([facility]) Pre-diabetes Other abnormal glucose Bilateral lower extremity edema- Primary Essential (primary) hypertension (CMS/HCC) Unspecified essential hypertension Allergic rhinitis, unspecified OSMANY (obstructive sleep apnea) Obstructive sleep apnea (adult) (pediatric) Primary hypertension (CMS/HCC) Unspecified essential hypertension Morbid obesity (CMS/[facility]) Morbid obesity Acute cystitis without hematuria- Primary Tobacco dependence Tobacco use disorder Needs flu shot Need for prophylactic vaccination and inoculation against influenza Morbid obesity ([facility]/HCC) Morbid obesity Well woman exam with routine gynecological exam- Primary Routine gynecological examination Morbid obesity ([facility]/HCC) Morbid obesity Metabolic encephalopathy- Primary OSMANY (obstructive sleep apnea) Obstructive sleep apnea (adult) (pediatric) Morbid obesity ([facility]) Morbid obesity Bilateral lower extremity edema Tobacco dependence Tobacco use disorder Bipolar disorder with severe depression ([facility]) At risk for polypharmacy Anxiety Anxiety state, unspecified Primary hypertension ([facility]) Unspecified essential hypertension Right bundle branch block (RBBB) determined by electrocardiography Primary hypertension ([facility])- Primary Unspecified essential hypertension Chronic kidney disease, stage 3a (HCC) ([facility]) Morbid (severe) obesity due to excess calories ([facility]) Body mass index (BMI) 45.0-49.9, adult ([facility]) OSMANY (obstructive sleep apnea) Obstructive sleep apnea (adult) (pediatric) Hemiparesis, right ([facility]) Unspecified hemiplegia affecting unspecified side Gastroesophageal reflux disease, unspecified whether esophagitis present Metabolic encephalopathy Essential (primary) hypertension ([facility]) Unspecified essential hypertension Allergic rhinitis, unspecified Gastro-esophageal reflux disease without esophagitis Bilateral lower extremity edema OSMANY (obstructive sleep apnea)- Primary Obstructive sleep apnea (adult) (pediatric) Restless leg Restless legs syndrome (RLS) 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[facility]) Concentration deficit documented in this encounter [facility]Evaluation note* Diagnosis Encounter for annual wellness visit (AWV) in Medicare patient- Primary OSMANY (obstructive sleep apnea) Obstructive sleep apnea (adult) (pediatric) Chronic pain disorder Chronic pain syndrome Gastroesophageal reflux disease, unspecified whether esophagitis present Overactive bladder Hypertonicity of bladder Lower extremity edema Edema Pre-diabetes Other abnormal glucose Morbid obesity ([facility]) Morbid obesity Yeast infection of the skin Candidiasis of skin and nails Tobacco dependence Tobacco use disorder Mood disorder ([facility]) Unspecified episodic mood disorder Primary hypertension ([facility]) Unspecified essential hypertension Left hip pain Pain in joint, pelvic region and thigh Open wound of anterior abdominal wall, initial encounter Primary hypertension ([facility])- Primary Unspecified essential hypertension Yeast infection of the skin Candidiasis of skin and nails Morbid obesity ([facility]) Morbid obesity Primary hypertension ([facility]/HCC)- Primary Unspecified essential hypertension Allergic rhinitis, unspecified Acute cough Morbid obesity ([facility]/HCC) Morbid obesity Former cigarette smoker Personal history of tobacco use, presenting hazards to health Toxic metabolic encephalopathy- Primary Hemiparesis, right ([facility]) Unspecified hemiplegia affecting unspecified side Acute respiratory failure with hypoxia ([facility]) Heart murmur Undiagnosed cardiac murmurs Primary hypertension ([facility]/HCC) Unspecified essential hypertension Morbid obesity ([facility]/HCC) Morbid obesity Bipolar disorder with severe depression ([facility]) Slurred speech Other speech disturbance Bilateral lower extremity edema- Primary Primary hypertension ([facility]/HCC) Unspecified essential hypertension Lower extremity edema Edema Essential (primary) hypertension ([facility]/HCC) Unspecified essential hypertension Gastro-esophageal reflux disease without esophagitis Allergic rhinitis, unspecified Bilateral lower extremity edema- Primary Morbid (severe) obesity due to excess calories ([facility]) Body mass index (BMI) 45.0-49.9, adult ([facility]) Pre-diabetes Other abnormal glucose Bilateral lower extremity edema- Primary Essential (primary) hypertension ([facility]) Unspecified essential hypertension Allergic rhinitis, unspecified OSMANY (obstructive sleep apnea) Obstructive sleep apnea (adult) (pediatric) Primary hypertension ([facility]) Unspecified essential hypertension Morbid obesity ([facility]) Morbid obesity Acute cystitis without hematuria- Primary Tobacco dependence Tobacco use disorder Needs flu shot Need for prophylactic vaccination and inoculation against influenza Morbid obesity ([facility]/HCC) Morbid obesity Well woman exam with routine gynecological exam- Primary Routine gynecological examination Morbid obesity ([facility]/HCC) Morbid obesity Metabolic encephalopathy- Primary OSMANY (obstructive sleep apnea) Obstructive sleep apnea (adult) (pediatric) Morbid obesity ([facility]) Morbid obesity Bilateral lower extremity edema Tobacco dependence Tobacco use disorder Bipolar disorder with severe depression ([facility]) At risk for polypharmacy Anxiety Anxiety state, unspecified Primary hypertension ([facility]) Unspecified essential hypertension Right bundle branch block (RBBB) determined by electrocardiography Primary hypertension ([facility])- Primary Unspecified essential hypertension Chronic kidney disease, stage 3a (HCC) ([facility]) Morbid (severe) obesity due to excess calories ([facility]) Body mass index (BMI) 45.0-49.9, adult ([facility]) OSMANY (obstructive sleep apnea) Obstructive sleep apnea (adult) (pediatric) Hemiparesis, right ([facility]) Unspecified hemiplegia affecting unspecified side Gastroesophageal reflux disease, unspecified whether esophagitis present Metabolic encephalopathy Essential (primary) hypertension (CMS/HCC) Unspecified essential hypertension Allergic rhinitis, unspecified Gastro-esophageal reflux disease without esophagitis Bilateral lower extremity edema Primary hypertension (CMS/HCC)- Primary Unspecified essential hypertension Morbid (severe) obesity due to excess calories ([facility]/HCC) Essential (primary) hypertension (CMS/HCC) Unspecified essential hypertension Allergic rhinitis, unspecified Gastro-esophageal reflux disease without esophagitis Bilateral lower extremity edema Bronchitis Bronchitis, not specified as acute or chronic documented in this encounter [facility] HealthcareEvaluation note* Diagnosis Encounter for annual [...] Tobacco dependence Tobacco use disorder Mood disorder (CMS/[facility] [facility]) Unspecified episodic mood disorder Primary hypertension ([facility]) Unspecified essential hypertension Left hip pain Pain in joint, pelvic region and thigh Open wound of anterior abdominal wall, initial encounter Primary hypertension ([facility]/HCC)- Primary Unspecified essential hypertension Yeast infection of the skin Candidiasis of skin and nails Morbid obesity (CMS/HCC) Morbid obesity Primary hypertension ([facility]/HCC)- Primary Unspecified essential hypertension Allergic rhinitis, unspecified Acute cough Morbid obesity ([facility]) Morbid obesity Former cigarette smoker Personal history of tobacco use, presenting hazards to health Toxic metabolic encephalopathy- Primary Hemiparesis, right ([facility]) Unspecified hemiplegia affecting unspecified side Acute respiratory failure with hypoxia ([facility]) Heart murmur Undiagnosed cardiac murmurs Primary hypertension ([facility]/HCC) Unspecified essential hypertension Morbid obesity ([facility]/HCC) Morbid obesity Bipolar disorder with severe depression ([facility]) Slurred speech Other speech disturbance Bilateral lower extremity edema- Primary Primary hypertension (CMS/HCC) Unspecified essential hypertension Lower extremity edema Edema Essential (primary) hypertension (CMS/HCC) Unspecified essential hypertension Gastro-esophageal reflux disease without esophagitis Allergic rhinitis, unspecified Bilateral lower extremity edema- Primary Morbid (severe) obesity due to excess calories ([facility]) Body mass index (BMI) 45.0-49.9, adult ([facility]) Pre-diabetes Other abnormal glucose Bilateral lower extremity edema- Primary Essential (primary) hypertension (CMS/HCC) Unspecified essential hypertension Allergic rhinitis, unspecified OSMANY (obstructive sleep apnea) Obstructive sleep apnea (adult) (pediatric) Primary hypertension (CMS/HCC) Unspecified essential hypertension Morbid obesity (CMS/HCC) Morbid obesity Well woman [...] hypertension Chronic kidney disease, stage 3a (HCC) ([facility]) Morbid (severe) obesity due to excess calories ([facility]) Body mass index (BMI) 45.0-49.9, adult ([facility]) OSMANY (obstructive sleep apnea) Obstructive sleep apnea (adult) (pediatric) Hemiparesis, right ([facility]) Unspecified hemiplegia affecting unspecified side Gastroesophageal reflux disease, unspecified whether esophagitis present Metabolic encephalopathy Essential (primary) hypertension (CMS/HCC) Unspecified essential hypertension Allergic rhinitis, unspecified Gastro-esophageal reflux disease without esophagitis Bilateral lower extremity edema Primary hypertension ([facility]/HCC)- Primary Unspecified essential hypertension Morbid (severe) obesity due to excess calories ([facility]/HCC) Essential (primary) hypertension ([facility]/HCC) Unspecified essential hypertension Allergic rhinitis, unspecified Gastro-esophageal reflux disease without esophagitis Bilateral lower extremity edema Bronchitis Bronchitis, not specified as acute or chronic Primary hypertension (CMS/HCC)- Primary Unspecified essential hypertension Bronchitis Bronchitis, not specified as acute or chronic Bilateral lower extremity edema Morbid (severe) obesity due to excess calories ([facility]) Pre-diabetes Other abnormal glucose Allergic rhinitis, unspecified seasonality, unspecified trigger Encounter for screening mammogram for malignant neoplasm of breast Former cigarette smoker Personal history of tobacco use, presenting hazards to health documented in this encounter [facility] and physical note Author Jace Graham [facility] March 23, 2023 11:21am Note Date/Time March 23, 2023 11:21am [facility] [address] [place] [address] Gastroenterology H&P Signed Patient: Michelle Be MR#: [id number] : 1960 Acct:[id number] Age/Sex: 62 / F Adm Date: 3 [...] signed by Jace Graham MD> 03/23/23 [address] [place] Work Phone: History general Narrative - Reported* [...] see above surg Hospitalization History stroke 2018 [facility] [employer] Other Hospital Discharge instructions Additional Instructions Regular Diet No Activity [place] Work Phone: Hospital Discharge instructions Additional Instructions [...] years. -Follow up with PCP. -Office number [phone].[facility] Work Phone: Reason for visit Narrative* Consultation (Routine) - Closed Specialty Diagnoses / Procedures Referred By Radha t Referred To Contact Neuropsychology Diagnoses Memory change Procedures MD OFFICE/OUTPATIENT NEW HIGH MDM Juany Leggett PA [address] [place] [address] Phone: tel: fax: David Foster, PhD [address] [address] Phone: tel: fax: Referral ID Status Reason Start Date Expiration Date V isits Requested Visits Authorized [id number] Closed Specialty Services Required 03/07/2024 09/03/2024 1 [...] Documents on File Type Date Recorded Patient Utility Technician Expl anation Power of Chain Tender 03/10/2024 3:12 PM POA Documents on File Type Date Recorded Patient Utility Technician Expl anation Power of Chain Tender 03/10/2024 3:12 PM POA Documents on File Type Date Recorded Patient Utility Technician Expl anation Power of Chain Tender 03/16/2024 9:42 AM darian r of tax attorney Power of Chain Tender 03/10/2024 3:12 PM POA Documents on File Type Date Recorded Patient Utility Technician Expl anation Power of Chain Tender 03/16/2024 9:42 AM darian r of tax attorney Power of Chain Tender 03/10/2024 3:12 PM POA Chief Complaint and Reason for Visit Chief Complaint Bipolar Depression Reason for Visit Allergies Bipolar 2 disorder Hypertension Morbid obesity with BMI of 45.0-49.9, adult OSMANY (obstructive sleep apnea) Restless legs syndrome Chief Complaint Screening Additional Source Comments INFORMATION SOURCE (unrecogn ized section and content) DATE CREATED AUTHOR 02/18/2019 [facility] DATE CREATED AUTHOR AUTHOR'S ORGANIZ ATION 11/15/2021 Chavez Josemanuel [facility] DATE CREATED AUTHOR AUTHOR'S ORGANIZ ATION 08/16/2022 [facility] DATE CREATED AUTHOR AUTHOR'S ORGANIZ ATION 07/28/2024 [facility] DATE CREATED AUTHOR AUTHOR'S ORGANIZ ATION 08/17/2024 [facility] EPIC DATE CREATED AUTHOR AUTHOR'S ORGANIZ ATION 09/15/2024 [facility] y[facility] Care Teams (unrecognized [...] MD Other Provider Active Adelaida Marsh , CELLULAR PHONE REPAIRER Other Provider Active Jessica Murillo , DO [...] MD Other Provider Active Joellen Le , SCALEMAKER-C Other Provider Active Severo Yancey MD Other Provider Active Rao Webber MD Other Provider Active Yuan Shi MD Other Provider Active Delroy Ramirez MD Other Provider Active Berta Comer , DO Other Provider Active Negrito Ruiz , DO Other Provider Active Lacho Singh , DO Other Provider Active Rachana Obika , CELLULAR PHONE REPAIRER Other Provider Active Rob Lake , DO Other Provider Active Jeff Alvarez MD Other Provider Active Urmila Rinaldi , CELLULAR PHONE REPAIRER Other Provider Active Bina Mayberry , CELLULAR PHONE REPAIRER Other Provider Active Mir Bradford MD Other Provider Active Te Da Silva MD Other Provider Active Debra Landaverde , JOHANN Other Provider Active Team Status: Inactive Member Role Status Dates Adelaida [facility] Primary [facility] Provider Active Jace Graham MD Attending Provider Active Senior Merchandiser Relationship Specialty Start Date End Date José Luis Roberts MD [address] [place] [address] PCP - General Family Medicine 05/18/23 Adelaida Carrion NP [address] [place] [address] Referring Physician Nurse Practitioner 10/14/22 Senior Merchandiser Relationship Specialty Start Date End Date José Luis Roberts MD [address] [place] [address] PCP - General Family Medicine 05/18/23 Adelaida Carrion NP [address] [place] [address] Referring Physician Nurse Practitioner 10/14/22 Senior Merchandiser Relationship Specialty Start Date End Date José Luis Roberts MD [address] [place] [address] PCP - General Family Medicine 05/18/23 Adelaida Carrion NP [address] [place] [place] [address] Referring Physician Nurse Practitioner 10/14/22 Senior Merchandiser Relationship Specialty Start Date End Date José Luis Roberts MD [address] [place] [address] PCP - General Family Medicine 05/18/23 Adelaida Carrion NP Referring Physician Nurse Practitioner 10/14/22 Miriam Suarez DO [address] [place], [place] [address] Referring Physician Neurology 06/29/23 [place] LPN Licensed Practical Nurse Family Medicine 12/18/23 Senior Merchandiser Relationship Specialty Start Date End Date José Luis Roberts MD [address] [place] [address] PCP - General Family Medicine 05/18/23 Adelaida Carrion NP Referring Physician Nurse Practitioner 10/14/22 Miriam Suarez DO [address] [place] [address] Referring Physician Neurology 06/29/23 [place] LPN Licensed Practical Nurse Family Medicine 12/18/23 Senior Merchandiser Relationship Specialty Start Date End Date Unallocated, Noms MD [address] [place] [address] PCP - General Family Medicine 01/27/24 Miriam Suarez DO [address] [place] [address] Referring Physician Neurology 06/29/23 [place] LPN Licensed Practical Nurse Family Medicine 12/18/23 Adelaida Carrion, BRIANA [address] [place] [address] Nurse Practitioner Family Medicine 01/27/24 Senior Merchandiser Relationship Specialty Start Date End Date Unallocated, Noms MD [address] [place] [address] PCP - General Family Medicine 01/27/24 Miriam Suarez DO [address] [place] [address] Referring Physician Neurology 06/29/23 [place] LPN Licensed Practical Nurse Family Medicine 12/18/23 Adelaida Carrion NP [address] [place] [address] Nurse Practitioner Family Medicine 01/27/24 Senior Merchandiser Relationship Specialty Start Date End Date José Luis Roberts MD [address] [place] [address] PCP - General Family Medicine 02/02/24 Miriam Suarez DO [address] [place] [address] Referring Physician Neurology 06/29/23 [place] LPN Licensed Practical Nurse Family Medicine 12/18/23 Adelaida Carrion, BRIANA [address] [place] [address] Nurse Practitioner Family Medicine 01/27/24 Senior Merchandiser Relationship Specialty Start Date End Date José Luis Roberts MD [address] [place] [address] PCP - General Family Medicine 02/02/24 Miriam Suarez DO [address] [place] [phone] Referring Physician Neurology 06/29/23 Adelaida Carrion NP [address] [place] [address] Nurse Practitioner Family Medicine 01/27/24 Bong Rosado MA Family Medicine 02/12/24 Senior Merchandiser Relationship Specialty Start Date End Date José Luis oRberts MD [address] [place] [address] PCP - General Family Medicine 02/02/24 Miriam Suarez DO [address] [place], [place] [address] Referring Physician Neurology 06/29/23 Adelaida Carrion, BRIANA [address] [place] [address] Nurse Practitioner Family Medicine 01/27/24 Bong Rosado MA Family Medicine 02/12/24 Senior Merchandiser Relationship Specialty Start Date End Date José Luis Roberts MD [address] [place] [address] PCP - General Family Medicine 02/02/24 Miriam Suarez DO [address] [place], [place] [address] Referring Physician Neurology 06/29/23 Adelaida Carrion NP [address] [place] [address] Nurse Practitioner Family Medicine 01/27/24 Bong Rosado MA Family Medicine 02/12/24 Senior Merchandiser Relationship Specialty Start Date End Date José Luis Roberts MD [address] [place] [address] PCP - General Family Medicine 02/02/24 Miriam Suarez DO [address] [place], [place] [address] Referring Physician Neurology 06/29/23 Adelaida Carrion NP [address] [place] [address] Nurse Practitioner Family Medicine 01/27/24 Bong Rosado MA Family Medicine 02/12/24 Senior Merchandiser Relationship Specialty Start Date End Date José Luis Roberts MD [address] [place] [address] PCP - General Family Medicine 02/02/24 Miriam Suarez DO [address] [place] [address] Referring Physician Neurology 06/29/23 Adelaida Carrion NP [address] [place] [address] Nurse Practitioner Family Medicine 01/27/24 Bong Rosado MA Family Medicine 02/12/24 Senior Merchandiser Relationship Specialty Start Date End Date José Luis Roberts MD [address] [place] [address] PCP - General Family Medicine 02/02/24 Miriam Suarez DO [address] [place] [phone] Referring Physician Neurology 06/29/23 Adelaida Carrion NP [address] [place] [address] Nurse Practitioner Family Medicine 01/27/24 Bong Rosado MA Family Medicine 02/12/24 Senior Merchandiser Relationship Specialty Start Date End Date José Luis Roberts MD [address] [place] [address] PCP - General Family Medicine 02/02/24 Miriam Suarez DO [address] [place], [place] [address] Referring Physician Neurology 06/29/23 Adelaida Carrion, BRIANA [address] [place] [address] Nurse Practitioner Family Medicine 01/27/24 Bong Rosado MA Family Medicine 02/12/24 Senior Merchandiser Relationship Specialty Start Date End Date José Luis Roberts MD [address] [place] [address] PCP - General Family Medicine 02/02/24 Miriam Suarez DO [address] [place], [place] [address] Referring Physician Neurology 06/29/23 Adelaida Carrion NP [address] [place] [address] Nurse Practitioner Family Medicine 01/27/24 Bong Rosado MA Family Medicine 02/12/24 Senior Merchandiser Relationship Specialty Start Date End Date José Luis Roberts MD [address] [place] [address] PCP - General Family Medicine 02/02/24 Miriam Suarez DO [address] [place], [place] [address] Referring Physician Neurology 06/29/23 Adelaida Carrion NP [address] [place] [address] Nurse Practitioner Family Medicine 01/27/24 Bong Rosado MA Family Medicine 02/12/24 Senior Merchandiser Relationship Specialty Start Date End Date José Luis Roberts MD [address] [place] [address] PCP - General Family Medicine 02/02/24 Miriam Suarez DO [address] [place] [address] Referring Physician Neurology 06/29/23 Adelaida Carrion NP [address] [place] [address] Nurse Practitioner Family Medicine 01/27/24 Bong Rosado MA Family Medicine 02/12/24 Senior Merchandiser Relationship Specialty Start Date End Date José Luis Roberts MD [address] [place] [address] PCP - General Family Medicine 02/02/24 Miriam Suarez DO [address] [place] [address] Referring Physician Neurology 06/29/23 Adelaida Carrion NP [address] [place] [address] Nurse Practitioner Family Medicine 01/27/24 Bong Rosado MA Family Medicine 02/12/24 Senior Merchandiser Relationship Specialty Start Date End Date José Luis Roberts MD [address] [place] [address] PCP - General Family Medicine 05/18/23 Adelaida Carrion NP Referring Physician Nurse Practitioner 10/14/22 Miriam Suarez DO [address] [place] [address] Referring Physician Neurology 06/29/23 Mathew Parra LPN Licensed Practical Nurse Family Medicine 07/23/23 Senior Merchandiser Relationship Specialty Start Date End Date José Luis Roberts MD [address] [place] [address] PCP - General Family Medicine 05/18/23 Adelaida Carrion NP Referring Physician Nurse Practitioner 10/14/22 Miriam Suarez DO [address] [place] [address] Referring Physician Neurology 06/29/23 Mathew Parra LPN Licensed Practical Nurse Family Medicine 07/23/23 Senior Merchandiser Relationship Specialty Start Date End Date José Luis Roberts MD [address] [place] [address] PCP - General Family Medicine 05/18/23 Adelaida Carrion NP Referring Physician Nurse Practitioner 10/14/22 Miriam Suarez DO [address] [place] [address] Referring Physician Neurology 06/29/23 Mathew Parra LPN Licensed Practical Nurse Family Medicine 07/23/23 Senior Merchandiser Relationship Specialty Start Date End Date José Luis Roberts MD [address] [place] [address] PCP - General Family Medicine 05/18/23 Adelaida Carrion NP Referring Physician Nurse Practitioner 10/14/22 Miriam Suarez DO [address] [place] [address] Referring Physician Neurology 06/29/23 Mathew Parra LPN Licensed Practical Nurse Family Medicine 07/23/23 Senior Merchandiser Relationship Specialty Start Date End Date José Luis Roberts MD [address] [place] [address] PCP - General Family Medicine 05/18/23 Adelaida Carrion NP Referring Physician Nurse Practitioner 10/14/22 Miriam uSarez DO [address] [place] [address] Referring Physician Neurology 06/29/23 [place] LPN Licensed Practical Nurse Family Medicine 12/18/23 Senior Merchandiser Relationship Specialty Start Date End Date José Luis Roberts MD [address] [place] [address] PCP - General Family Medicine 05/18/23 Adelaida Carrion NP Referring Physician Nurse Practitioner 10/14/22 Miriam Suarez DO [address] [place], [place] [address] Referring Physician Neurology 06/29/23 [place] LPN Licensed Practical Nurse Family Medicine 12/18/23 Senior Merchandiser Relationship Specialty Start Date End Date José Luis Roberts MD [address] [place] [address] PCP - General Family Medicine 05/18/23 Adelaida Carrion NP Referring Physician Nurse Practitioner 10/14/22 Miriam Suarez DO [address] [place] [address] Referring Physician Neurology 06/29/23 [place] LPN Licensed Practical Nurse Family Medicine 12/18/23 Senior Merchandiser Relationship Specialty Start Date End Date José Luis Roberts MD [address] [place] [address] PCP - General Family Medicine 02/02/24 Miriam Suarez DO [address] [place] [address] Referring Physician Neurology 06/29/23 Adelaida Carrion, BRIANA [address] [place] [address] Nurse Practitioner Family Medicine 01/27/24 Bong Rosado MA Family Medicine 02/12/24 Senior Merchandiser Relationship Specialty Start Date End Date José Luis Roberts MD [address] [place] [address] PCP - General Family Medicine 02/02/24 Miriam Suarez DO [address] [place], [place] [address] Referring Physician Neurology 06/29/23 Adelaida Carrion, BRIANA [address] [place] [address] Nurse Practitioner Family Medicine 01/27/24 Bong Rosado MA Family Medicine 02/12/24 Senior Merchandiser Relationship Specialty Start Date End Date José Luis Roberts MD [address] [place] [address] PCP - General Family Medicine 02/02/24 Miriam Suarez DO [address] [place] [address] Referring Physician Neurology 06/29/23 Adelaida Carrion NP [address] [place] [address] Nurse Practitioner Family Medicine 01/27/24 Bong Rosado MA Family Medicine 02/12/24 Senior Merchandiser Relationship Specialty Start Date End Date José Luis Roberts MD [address] [place] [address] PCP - General Family Medicine 02/02/24 Miriam Suarez DO [address] [place] [address] Referring Physician Neurology 06/29/23 Adelaida Carrion NP [address] [place] [address] Nurse Practitioner Family Medicine 01/27/24 Bong Rosado MA Family Medicine 02/12/24 Senior Merchandiser Relationship Specialty Start Date End Date José Luis Roberts MD [address] [place] [address] PCP - General Family Medicine 02/02/24 Miriam Suarez DO [address] [place] [address] Referring Physician Neurology 06/29/23 Adelaida Carrion NP [address] [place] [address] Nurse Practitioner Family Medicine 01/27/24 Bong Rosado MA Family Medicine 02/12/24 Senior Merchandiser Relationship Specialty Start Date End Date José Luis Roberts MD [address] [place] [address] PCP - General Family Medicine 02/02/24 Miriam Suarez DO [address] [place], [place] [address] Referring Physician Neurology 06/29/23 Adelaida Carrion, BRIANA [address] [place] [address] Nurse Practitioner Family Medicine 01/27/24 Bong Rosado MA Family Medicine 02/12/24 Senior Merchandiser Relationship Specialty Start Date End Date José Luis Roberts MD [address] [place] [address] PCP - General Family Medicine 02/02/24 Miriam Suarez DO [address] [place], [place] [address] Referring Physician Neurology 06/29/23 Adelaida Carrion, BRIANA [address] [place] [address] Nurse Practitioner Family Medicine 01/27/24 Bong Rosado MA Family Medicine 02/12/24 Juany Leggett PA [address] [place], [place] [address] Physician Literature Teacher Neurology 07/26/24 Senior Merchandiser Relationship Specialty Start Date End Date José Luis Roberts MD [address] [place] [address] PCP - General Family Medicine 02/02/24 Miriam Suarez DO [address] [place] [address] Referring Physician Neurology 06/29/23 Adelaida Carrion NP [address] [place] [address] Nurse Practitioner Family Medicine 01/27/24 Bong Rosado MA Family Medicine 02/12/24 Juany Leggett PA [address] [place] [address] Physician Literature Teacher Neurology 07/26/24 Senior Merchandiser Relationship Specialty Start Date End Date José Luis Roberts MD [address] [place] [address] PCP - General Family Medicine 02/02/24 Miriam Suarez DO [address] [place] [address] Referring Physician Neurology 06/29/23 Adelaida Carrion, BRIANA [address] [place] [address] Nurse Practitioner Family Medicine 01/27/24 Bong Rosado MA Family Medicine 02/12/24 Juany Leggett PA [address] [place], [place] [address] Physician Literature Teacher Neurology 07/26/24 Senior Merchandiser Relationship Specialty Start Date End Date José Luis Roberts MD [address] [place] [address] PCP - General Family Medicine 02/02/24 Miriam Suarez DO [address] [place] [address] Referring Physician Neurology 06/29/23 Adelaida Carrion NP [address] [place] [address] Nurse Practitioner Family Medicine 01/27/24 Bong Rosado MA Family Medicine 02/12/24 Juany Leggett PA [address] [place] [address] Physician Literature Teacher Neurology 07/26/24 Senior Merchandiser Relationship Specialty Start Date End Date José Luis Roberts MD [address] [place] [address] PCP - General Family Medicine 02/02/24 Miriam Suarez DO [address] [place] [address] Referring Physician Neurology 06/29/23 Adelaida Carrion NP [address] [place] [address] Nurse Practitioner Family Medicine 01/27/24 Bong Rosado MA Family Medicine 02/12/24 Juany Leggett PA [address] [place], [place] [address] Physician Literature Teacher Neurology 07/26/24 Senior Merchandiser Relationship Specialty Start Date End Date José Luis Roberts MD [address] [place] [address] PCP - General Family Medicine 02/02/24 Miriam Suarez DO [address] [place] [address] Referring Physician Neurology 06/29/23 Adelaida Carrion NP [address] [place] [address] Nurse Practitioner Family Medicine 01/27/24 Bong Rosado MA Family Medicine 02/12/24 Juany Leggett PA [address] [place] [address] Physician Literature Teacher Neurology 07/26/24 REASON FOR VISIT (unrecogniz ed [...] BE BASED ON THE PRIMARY CLINICAL RECORDS. [employer] provides no warranty or guarantee of the accuracy or completeness of information in this document.
[2024-09-19 08:48] VITALS: PULSE 72; O2SAT 95
[2024-09-19 08:49] VITALS: BP 134/80; BP 155/76; PULSE 71; O2SAT 97
[2024-09-19] MEDS: BUPIVACAINE HCL 0.25% PF 25 MG/10 ML VIAL 2 ML INJ (08:51)
[2024-09-19] MEDS: IOHEXOL 240 MG/ML - 10 ML VIAL 12 MG INJ (08:51)
--- NOTE | 2024-09-19 08:51 | W.PM.PROCNOT ---
Date of procedure: 09/19/24 Pre-op diagnosis: Pain due to left sacroiliitis Post-op diagnosis: same as pre-op Procedure: Procedure: Left sacroiliac joint injection Medications: Bupivacaine 0.25% 3cc, depomedrol 40mg After informed consent was obtained, the patient was brought to the medical procedure unit and placed in the prone position, when a timeout was completed verifying correct patient, procedure, site, positioning, implant, and/or special equipment.? The skin overlying the area was prepped and draped in standard sterile fashion using alcohol.? A 25-gauge needle was inserted towards the left sacroiliac joint under direct fluoroscopic imaging.? Needle tip was advanced until the joint was encountered.? We instilled a total of 2 mL of solution.? Postoperatively needles were removed.? The patient tolerated the procedure well without complication.? The patient reported reduction in pain symptoms postoperatively. Anesthesia: Local Surgeon: Syeda Mancuso Pathology: none sent Condition: stable Disposition: no change
[2024-09-19] MEDS: LIDOCAINE HCL 2% 400 MG/20 ML MDV INJ (08:52)
[2024-09-19] MEDS: METHYLPREDNISOLONE ACETATE 40 MG/ML VIAL INJ (08:52)
== END 2024-09-19 08:58 | disposition home or self-care (01) ==
LOC: SURGOUT 08:03
PROVIDERS: PCP Nurse Practitioner; Visit Provider Anesthesiology
DX: M46.1 Sacroiliitis, not elsewhere classified (principal); M53.3 Sacrococcygeal disorders, not elsewhere classified
CPT/HCPCS: 27096; J0665; J1010; Q9966

== ENCOUNTER 2024-09-26 12:48 | Outpatient (OUT) | payer MEDICARE, SELFPAY ==
--- OUTSIDE RECORDS SUMMARY | 2020-04-11 07:00 | XMS_ITS | Continuity of Care Document ---
Author Organization [facility] Address [address] [place] [address] [place] [address] Phone Care Team Providers Care Tab Cutter Name Role Phone Kayce Chanel CNP Unavailable [...] Copied on Encounter OFFICE/OUTPAT IENT VISIT, EST [facility], [address] [place] [address], [id number], [place] tel:[phone] [facility] No Information Darío Devries. [address] [place] [address], [id number], [place]. tel:[phone] Referring Provider: Kayce Chanel, [address] [place] [address] 222, [place], [address] . tel:[phone] [facility], [address] [place] [address] B, [place], [place], [id number], [place] tel:[phone] [facility] No Information Darío Devries. [address], [place], [place], [address], [place]. tel:[phone] Referring Provider: Kayce Chanel, [address] [place] [address] [address], [place], [address] . tel:[phone] [facility], [address] [place] [address] [address], [place], [place], [address], [place] tel:[phone] [facility] No Information Darío Devries. [facility] [address], [place], [place], [address], [place]. tel:[phone] Referring Provider: Kayce Chanel, [address] [place] [address] [address], [place], [address] . tel:[phone] [facility], [address] [place] [address] [address], [place], [place], [address], [place] tel:[phone] [facility] No Information Darío Devries. [facility] [address], [place], [place], [address], [place]. tel:[phone] Referring Provider: Kayce hCanel, [facility] [address], [place], [address] . tel:[phone] [facility], [address] [place] [address] [address], [place], [address], [place] tel:[phone] [facility] No Information Darío Devries. [address] [place] [address] [address], [facility] [place], [id number], [place]. tel:[phone] Referring Provider: Kayce Chanel, [address] [place] [address] [address], [place], [address] . tel:[phone] [facility], [address] [place] [address] [address], [place], [place], [address], [place] tel:[phone] [facility] No Information Yulia Anguiano. [address] [facility] [address], [place], [place], [address], [place]. tel:[phone] Referring Provider: Silvio Acevedo, [address] [facility] [address], [place], [address] . tel:[phone] OFFICE/OUTPAT IENT VISIT, [facility], [address] [place] [address] [address], [place], [place], [address], [place] tel:[phone] [facility] No Information Yulia Anguiano. [address] [facility] [address], [place], [place], [address], [place]. tel:[phone] Referring Provider: Silvio Acevedo, [address] [facility] [address], [place], [address] . tel:[phone] PS[facility]CH DI[facility]NOST[facility], [address] [place] [address] [address], [place], [place], [address], [place] tel:[phone] [facility] No Information No Information OFFICE/OUTPAT IENT VISIT, [facility], [address] [place] [address] [address], [place], [place], [address], [place] tel:[phone] [facility] No Information Yulia Anguiano. [address] [facility] [address], [place], [place], [address], [place]. tel:[phone] Referring Provider: Silvio Acevedo, [address] [facility] [address], [place], [address] . tel:[phone] OFFICE/OUTPAT IENT VISIT, [facility], [address] [place] [address] [address], [place], [place], [address], [place] tel:[phone] [facility] No Information Yulia Anguiano. [address] [facility] [address], [place], [place], [address], [place]. tel:[phone] Referring Provider: Silvio Acevedo, [address] [facility] [address], [place], [address] . tel:[phone] OFFICE/OUTPAT IENT VISIT, [facility], [address] [facility] [address], [place], [place], [address], [place] tel:[phone] [facility] No Information Yulia Anguiano. [address] [place] [address] [address], [place], [place], [address], [place]. tel:[phone] Referring Provider: Silvio Acevedo, [address] [place] [address] [address], [place], [address] . tel:[phone] Family History Family Member Type Diagnosis Age At Onset No Information Payers Payer name Insurance type Covered constitution party ID Authorgerard thakur(s) [facility] Medicare Solutions [id number] Social History Type Description Quantity Date Captured [...]
--- OUTSIDE RECORDS SUMMARY | 2024-09-26 12:50 | XMS_ITS | Encounter Summary ---
Author Organization [facility] Address [address] [place] [address] Care Team Providers Care Clinical Biochemist Name Role Phone Adelaida Carrion NP Unavailable [phone] José Luis Roberts MD Primary Care Provider [phone] Miriam Suarez DO Unavailable [phone] Mathew Parra SOLUTION ARCHITECT Unavailable Unavailable Diana De Leon SOLUTION ARCHITECT Unavailable Unallocated, Noms Provider Primary Care Provi kellee Adelaida Carrion NP Unavailable [phone] José Luis Roberts MD Primary Care Provider [phone] Bong Rosado MA Unavailable [phone] Juany Leggett Unavailable Encounter Details Date Type Department Care Team (Late st Contact Info) Description 09/21/2023 Orders Only [facility] [address] [place] [address] Adelaida Carrion NP [address] [facility] [place] [address] Social History Tobacco Use Types [...] How often do you attend adventist or hoahaoism serv ices? Never 08/16/2023 Do you belong [...] place to sleep or slept in a nursing home (including now)? No 08/16/2023 Housing Stability [...] Office Visit [facility] [address] [place] [address] Adelaida Carrion NP [address] [place] [address] documented as of this encounter Procedures Procedure [...] documented as of this encounter Care Teams Clinical Biochemist Relationship Specialty Start Date End Date José Luis Roberts MD [address] [place] [address] PCP - General Family Medicine 05/18/23 01/26/24 Unallocated, Johan Sierra MD [address] [place] [address] PCP - General Family Medicine 01/27/24 02/01/24 José Luis Roberts MD [address] [place] [address] PCP - General Family Medicine 02/02/24 Adelaida Carrion NP Referring Physician Nurse Practitioner 10/14/22 Miriam Suarez DO [address] [id number] Referring Physician Neurology 06/29/23 Mathew Parra LPN Licensed Practical Nurse Family Medicine 07/23/23 Diana De Leon LPN [address] [place] [address] Licensed Practical Nurse Family Medicine 12/18/2302/11 Adelaida Carrion NP [address] [place] [address] Nurse Practitioner Family Medicine 01/27/24 Bong Rosado, [place] [address] [place] [address] Family Medicine 02/12/24 Juany Leggett PA [address] [place], [place] [address] Physician Electric Razor Assembler Neurology 07/26/24 documented as of this encounter
--- OUTSIDE RECORDS SUMMARY | 2024-09-26 12:50 | XMS_ITS | Encounter Summary ---
Author Organization [facility] Address [address] [place] [address] Care Team Providers Care Electronics Technician Apprentice Name Role Phone Miriam Suarez DO Unavailable [phone] Adelaida Carrion NP Unavailable [phone] José Luis Roberts MD Primary Care Provider [phone] Bong Rosado MA Unavailable [phone] Juany Leggett Unavailable Encounter Details Date Type Department Care Team (Late st Contact Info) Description 03/21/2024 Orders Only [facility] [address] [place] [address] Adelaida Carrion, BRIANA [address] [place] [address] Social History Tobacco Use Types Packs/Day Years [...] declined 08/16/2023 How often do you attend mormonism or evangelical serv ices? Never 08/16/2023 Do you belong to any clubs o r organizations such as mormonism groups, unions, fraternal or athletic groups, or [...] Recorded Patient Health Questionnaire-2 Score 2 09/21/2023 [facility] [...] Visit [facility] [address] [place] [address] Adelaida Carrion NP [address] [place] [address] documented as of this encounter Procedures Procedure [...] * SCANNED LABS (03/21/2024 2:30 PM EST) [facility] LAB CHG PERFORMABLES Final Res ult * SCANNED LABS (03/21/2024 2:21 PM EST) Adelaida Carrion NP LAB CHG PERFORMABLES Final Resu lt * ECG 12 lead (03/21/2024 2:19 PM EST) Result [facility] ECG ORDERABLES Final Result * ECG 12 lead (03/21/2024 2:15 PM EST) Result [facility] ECG ORDERABLES Final Result * ECG 12 lead (03/21/2024 2:10 PM EST) Clayton Galvan MD ECG ORDERABLES Final Result * ECG 12 lead (03/21/2024 2:07 PM EST) Rochelle Keene MD ECG ORDERABLES Final Result * Complete echocardiogram dobutamine stress test (03/21/2024 2:03 PM EST) Anatomical Region Laterality Modality Ultrasound Adelaida Aichholz SPOT FACER CV ECHO PROCEDURES Final Result documented in this encounter Visit Diagnoses Not on filedocumented in this encounter Additional Health Concerns Assessment Noted Time PHQ-9 Depression Total Score: 8 05/18/19 24 5:00 PM EST documented as of this encounter Care Teams Electronics Technician Apprentice Relationship Specialty Start Date End Date José Luis Roberts MD [address] [place] [address] PCP - General Family Medicine 02/02/24 Miriam Suarez DO [address] [place], [place] [address] Referring Physician Neurology 06/29/23 Adelaida Carrion NP [address] [place] [address] Nurse Practitioner Family Medicine 01/27/24 Bong Rosado, [place] [address] [place] [address] Family Medicine 02/12/24 Juany Leggett PA [address] [place], [place] [address] Physician Wage Analyst Neurology 07/26/24 documented as of this encounter
--- OUTSIDE RECORDS SUMMARY | 2024-09-26 12:50 | XMS_ITS | Encounter Summary ---
Author Organization [facility] Address [address] [place] [address] Care Team Providers Care Primer And Powder Canning Leader Name Role Phone Adelaida Carrion NP Unavailable [phone] José Luis Roberts MD Primary Care Provider [phone] Miriam Suarez DO Unavailable [phone] Mathew Parra FAMILY LIFE COUNSELOR Unavailable Unavailable Diana De Leon LPN Unavailable Unallocated, Noms Provider Primary Care Provi kellee Adelaida Carrion NP Unavailable [phone] José Luis Roberts MD Primary Care Provider [phone] Bong Rosado MA Unavailable [phone] Juany Leggett Unavailable Encounter Details Date Type Department Care Team (Late st Contact Info) Description 09/18/2023 Clinisync Result Encounter [facility] External Department Unsolicited Adelaida Carrion NP [address] [place] [address] Social History Tobacco Use Types Packs/Day Years [...] declined 08/16/2023 How often do you attend temple or presybeterian serv ices? Never 08/16/2023 Do you belong to any clubs o r organizations such as temple groups, unions, fraternal or athletic groups, or [...] Recorded Patient Health Questionnaire-2 Score 2 09/21/2023 [facility] - Occupational Stress [...] Office Visit [facility] [address] [place] [address] Adelaida Carrion NP [address] [place] [address] documented as of this encounter Procedures Procedure Name Priority Date/Time Associated Diagnosis Comments MM TOMOSYNTHESIS SCREENING BI 09/18/2023 1:42 PM EDT documented in this encounter Results * MM TOMOSYNTHESIS SCREENING BI (09/18/2023 1:42 PM EDT) Anatomical Region Laterality Modality Other 09/18/2023 1:42 PM EDT Narrative 09/18/2023 1:43 PM EDT The [address] [address] Mammography Report Signed Patient: NASIM INGRAM MR#: [id number] : 1960 Acct:[id number] Age/Sex: 62 / F ADM Date: 09/18/23 Loc: MAMMO Attending Dr: Adelaida Carrion MILIEU COORDINATOR Ordering Physician: Aichholz,Adelaida MILIEU COORDINATOR Results: Date of Service: 09/18/23 Follow Up: Procedure(s): MM tomosynthesis screening BI Accession Number(s): [id number] cc: Adelaida Carrion NP Patient Name: NASIM INGRAM MR#: [id number] : 1960 Exam Date: 09/18/2023 Ordering Doctor: [...] Treatments None Family Cancers None LOCATION: The [facility] BREAST COMPOSITION: There are scattered areas of [...] Gamble M.D. Signed By: 09/18/23 1343 DD/ 1342 TD/TT: Manager Safe: Procedure Note Radiology, Radiologist, - 09/18/2023 [place] [address] Mammography Report Signed Patient: NASIM INGRAM LMR#: [id number] : 1960cct:[id number] Age/Sex: 62 / FADM Date: 09/18/23 Loc: MAMMO Attending Dr: Adelaida Carrion NP Ordering Physician: Adelaida Carrion NPResults: Date of Service: 09/18/23Follow Up: Procedure(s): MM tomosynthesis screening BI Accession Number(s): [id number] cc: Adelaida Carrion NP Patient Name: NASIM INGRAM MR#: [id number] : 1960 Exam Date: 09/18/2023 Ordering Doctor: LIVIER Carrion CNP RADIOLOGY REPORT PROCEDURE: MM TOMOSYNTHESIS SCREENING BI COMPARISON: MM TOMOSYNTHESIS SCREENING BI, 09/15/2022. MG MAMM [id number] BHUMI CAD, 06/20/2021. INDICATIONS: Screening Calculator Name NCI Breast Cancer Risk Assessment Tool 5 Year Breast Cancer Risk 2.20% Lifetime Breast Cancer Risk 10.30% Personal Breast Cancer No Personal Ovarian Cancer No Treatments None Family Cancers None LOCATION: [facility] BREAST COMPOSITION: There are scattered areas of [...] M.D. Signed By:09/18/23 1343 DD/ 1342 TD/TT: Manager Safe: us Adelaida Carrion NP [facility] Final Result documented in this encounter Visit Diagnoses Not on filedocumented in this encounter Additional Health Concerns Assessment Noted Time PHQ-9 Depression Total Score: 8 05/18/19 24 5:00 PM EST documented as of this encounter Care Teams Primer And Powder Canning Leader Relationship Specialty Start Date End Date José Luis Roberts MD [address] [place] [address] PCP - General Family Medicine 05/18/23 01/26/24 Unallocated, Johan Sierra MD [address] [place] [address] PCP - General Family Medicine 01/27/24 02/01/24 José Luis Roberts MD [address] [place] [address] PCP - General Family Medicine 02/02/24 Adelaida Carrion NP Referring Physician Nurse Practitioner 10/14/22 Miriam Suarez DO [address] [place], [place] [address] Referring Physician Neurology 06/29/23 Mathew Parra LPN Licensed Practical Nurse Family Medicine 07/23/23 Diana De Leon LPN [address] [place] [address] Licensed Practical Nurse Family Medicine 12/18/2302/11 Adelaida Carrion NP [address] [place] [address] Nurse Practitioner Family Medicine 01/27/24 Bong Rosado MA [address] [place] [address] Family Medicine 02/12/24 Juany Leggett PA [address] [place], [place] [address] Physician Mortgage Clerk Neurology 07/26/24 documented as of this encounter
--- OUTSIDE RECORDS SUMMARY | 2024-09-26 12:50 | XMS_ITS | Encounter Summary ---
Author Organization [facility] Address [address] [place] [address] Care Team Providers Care Toy Painter Name Role Phone Adelaida Carrion NP Unavailable [phone] José Luis Roberts MD Primary Care Provider [phone] Miriam Suarez DO Unavailable [phone] Mathew Parra MATHEMATICAL SCIENCES PROFESSOR Unavailable Unavailable Diana De Leon LPN Unavailable Unallocated, Noms Provider Primary Care Provi kellee Adelaida Carrion NP Unavailable [phone] José Luis Roberts MD Primary Care Provider [phone] Bong Rosado MA Unavailable [phone] Juany Leggett Unavailable Encounter Details Date [...] How often do you attend presybeterian or zoroastrian serv ices? Never 08/16/2023 Do [...] Recorded Patient Health Questionnaire-2 Score 2 09/21/2023 [facility] of Occupat ional Health - Occupational Stress [...] place to sleep or slept in a correction (including now)? No 08/16/2023 Housing Stability Vital [...] Visit [facility] [address] [place] [address] Adelaida Carrion NP [address] [place] [address] documented as of this encounter Procedures Procedure Name Priority Date/Time Associated Diagnosis Comments XR LUMBAR SPINE 6V W BENDING 12/02/2023 2:53 PM EDT documented in this encounter Results * XR LUMBAR SPINE 6V W BENDING (12/02/2023 2:53 PM EDT) Anatomical Region Laterality Modality Other 12/02/2023 2:53 PM EDT Narrative 12/02/2023 2:55 [place] [address] XRay Report Signed Patient: NASIM INGRAM MR#: [id number] : 1960 Acct:[id number] Age/Sex: 62 / F ADM Date: 12/02/23 Loc: SAHIL Attending Dr: Elizabeth Cano ASSOCIATE PROFESSOR PLANT PATHOLOGY Ordering Physician: Elizabeth Cano NP Date of Service: 12/02/23 Procedure(s): XR lumbar spine 6V w bending Accession Number(s): [id number] cc: Adelaida Carrion ASSOCIATE PROFESSOR PLANT PATHOLOGY; Elizabeth Cano NP [address] [address] Patient Name: NASIM INGRAM MRN: [id number] date: 1960 Sex: F Assigned Patient Location: [facility] Current Patient Location: [facility] Accession/Order Number: [id number] Exam Date: 12/02/2023 14:10 Report Date: 12/02/2023 14:53 At the request of: ELIZABETH CANO Procedure: XR lumbar spine 6V w bending EXAMINATION: XR thoracic spine 2V, XR lumbar [...] transient spondylolisthesis with flexion or extension XR/XR lumbar spine 6V w bending IMPRESSION: Mild to moderate 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 Signed By: 12/02/23 1455 DD/ 1453 TD/TT: Flight Attendant Inflight Services: Procedure Note Radiology, Radiologist, MD - 12/02/2023 [place] [address] XRay Report Signed Patient: NASIM INGRAM LMR#: [id number] : 1960cct:[id number] Age/Sex: 62 / FADM Date: 12/02/23 Loc: SAHIL Attending Dr: Elizabeth Cano NP Ordering Physician: Elizabeth Cano NP Date of Service: 12/02/23 Procedure(s): XR lumbar spine 6V w bending Accession Number(s): [id number] cc: Adelaida Carrion NP; Elizabeth Cano NP The [address] [address] Patient Name: NASIM INGRAM MRN: [id number] date: 1960 Sex: F Assigned Patient Location: [facility] Current Patient Location: [facility] Accession/Order Number: [id number] Exam Date: 12/02/2023 14:10 Report Date: 12/02/2023 14:53 At the request of: ELIZABETH CANO Procedure: XR lumbar spine 6V w bending EXAMINATION: XR thoracic spine 2V, XR lumbar [...] transient spondylolisthesis with flexion or extension XR/XR lumbar spine 6V w bending IMPRESSION: Mild to moderate 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 Signed By:12/02/23 1455 DD/ 1453 TD/TT: Flight Attendant Inflight Services: us Generic External Data Provider [facility] Final Result documented in this encounter Visit Diagnoses Not on filedocumented in this encounter Additional Health Concerns Assessment Noted Time PHQ-9 Depression Total Score: 8 05/18/19 24 5:00 PM EST documented as of this encounter Care Teams Toy Painter Relationship Specialty Start Date End Date José Luis Roberts MD [address] [place] [address] PCP - General Family Medicine 05/18/23 01/26/24 Unallocated, Noms ProviderMD [address] [place] [address] PCP - General Family Medicine 01/27/24 02/01/24 José Luis Roberts MD [address] [place] [address] PCP - General Family Medicine 02/02/24 Adelaida Carrion NP Referring Physician Nurse Practitioner 10/14/22 Miriam Suarez DO [address] [place] [address] Referring Physician Neurology 06/29/23 Mathew Parra LPN Licensed Practical Nurse Family Medicine 07/23/23 Diana De Leon LPN [address] [place] [address] Licensed Practical Nurse Family Medicine 12/18/2302/11 Adelaida Carrion NP [address] [place] [address] Nurse Practitioner Family Medicine 01/27/24 Bong Rosado, [place] [address] [place] [address] Family Medicine 02/12/24 Juany Leggett PA [address] [place], [place] [address] Physician Is Analyst Neurology 07/26/24 documented as of this encounter
--- OUTSIDE RECORDS SUMMARY | 2024-09-26 12:50 | XMS_ITS | Encounter Summary ---
Author Organization [facility] Address [address] [place] [address] Care Team Providers Care Health Information Coder Name Role Phone Adelaida Carrion NP Unavailable [phone] José Luis Roberts MD Primary Care Provider [phone] Miriam Suarez DO Unavailable [phone] Mathew Parra BIOLOGY FACULTY MEMBER Unavailable Unavailable Diana De Leon LPN Unavailable Unallocated, Noms Provider Primary Care Provi kellee Adelaida Carrion NP Unavailable [phone] José Luis Roberts MD Primary Care Provider [phone] Bong Rosado MA Unavailable [phone] Juany Leggett Unavailable Encounter Details Date Type Department Care Team (Late st Contact Info) Description 09/02/2023 Orders Only [facility] [address] [place] [address] Shaikh Alberto MD [address] [address] Social History Tobacco Use Types [...] declined 08/16/2023 How often do you attend gnosticism or advent serv ices? Never 08/16/2023 Do you belong to any clubs o r organizations such as gnosticism groups, unions, fraternal or athletic groups, or [...] Recorded Patient Health Questionnaire-2 Score 0 08/17/2023 [facility] Occupat ional Health - Occupational [...] 11/14/2024 9:40 AM EDT Office Visit [facility] [address] [place] [address] Adelaida Carrion, WOOL SCOURER [address] [place] [address] documented as of this encounter Procedures Procedure [...] documented as of this encounter Care Teams Health Information Coder Relationship Specialty Start Date End Date José Luis Roberts MD [address] [place] [address] PCP - General Family Medicine 05/18/23 01/26/24 Unallocated, Johan Sierra MD [facility] [place] [address] PCP - General Family Medicine 01/27/24 02/01/24 José Luis Roberts MD [address] [place] [address] PCP - General Family Medicine 02/02/24 Adelaida Carrion, BRIANA Referring Physician Nurse Practitioner 10/14/22 Miriam Suarez DO [address] [place], [place] [address] Referring Physician Neurology 06/29/23 Mathew Parra LPN Licensed Practical Nurse Family Medicine 07/23/23 Diana De Leon LPN [address] [place] [address] Licensed Practical Nurse Family Medicine 12/18/2302/11 Adelaida Carrion NP [address] [place] [address] Nurse Practitioner Family Medicine 01/27/24 Bong Rosado, [place] [address] [place] [address] Family Medicine 02/12/24 Juany Leggett PA [address] [place] [address] Physician Ribber Neurology 07/26/24 documented as of this encounter
--- OUTSIDE RECORDS SUMMARY | 2024-09-26 12:50 | XMS_ITS | Encounter Summary ---
Author Organization [facility] Address [address] [place] [address] Care Team Providers Care Wagon Driller Name Role Phone Adelaida Carrion NP Unavailable [phone] José Luis Roberts MD Primary Care Provider [phone] Miriam Suarez DO Unavailable [phone] Mathew Parra COMMUNICATIONS DEPARTMENT CHAIR Unavailable Unavailable Diana De Leon LPN Unavailable Unallocated, Noms Provider Primary Care Provi kellee Adelaida Carrion NP Unavailable [phone] José Luis Roberts MD Primary Care Provider [phone] Bong Rosado MA Unavailable [phone] Juany Leggett Unavailable Encounter Details Date Type Department Care Team (Late st Contact Info) Description 10/27/2023 Abstract [facility] [address] [place] [address] Unallocated, Noms Provider, [address] [place], [place] [address] Social History Tobacco Use Types Packs/Day Years [...] declined 08/16/2023 How often do you attend caodaism or mandaeism serv ices? Never 08/16/2023 Do you belong to any clubs o r organizations such as caodaism groups, unions, fraternal or athletic groups, or [...] Recorded Patient Health Questionnaire-2 Score 2 09/21/2023 [facility] [place] of Occupat ional Health - Occupational Stress [...] Office Visit [facility] [address] [place] [address] Adelaida Carrion, BRIANA [address] [place] [address] documented as of this encounter Visit Diagnoses Not on filedocumented in this encounter Additional Health Concerns Assessment Noted Time PHQ-9 Depression Total Score: 8 05/18/19 24 5:00 PM EST documented as of this encounter Care Teams Wagon Driller Relationship Specialty Start Date End Date José Luis Roberts MD [address] [place] [address] PCP - General Family Medicine 05/18/23 01/26/24 Unallocated, Johan Sierra MD [address] [place] [address] PCP - General Family Medicine 01/27/24 02/01/24 José Luis Roberts MD [address] [place] [address] PCP - General Family Medicine 02/02/24 Adelaida Carrion NP Referring Physician Nurse Practitioner 10/14/22 Miriam Suarez DO [address] [place] [address] Referring Physician Neurology 06/29/23 Mathew Parra LPN Licensed Practical Nurse Family Medicine 07/23/23 Diana De Leon LPN [address] [place], [place] [address] Licensed Practical Nurse Family Medicine 12/18/2302/11 Adelaida Carrion NP [address] [place] [address] Nurse Practitioner Family Medicine 01/27/24 Bong Rosado, [place] [address] [place] [address] Family Medicine 02/12/24 Juany Leggett PA [address] [place] [address] Physician Drafter Structural Neurology 07/26/24 documented as of this encounter
--- OUTSIDE RECORDS SUMMARY | 2024-09-26 12:50 | XMS_ITS | Encounter Summary ---
Author Organization [facility] Address [address] [place] [address] Care Team Providers Care Quarry Supervisor Dimension Stone Name Role Phone Miriam Suarez DO Unavailable [phone] Adelaida Carrion NP Unavailable [phone] José Luis Roberts MD Primary Care Provider Bong Rosado MA Unavailable [phone] Juany Leggett Unavailable Encounter Details Date Type Department Care Team (Late st Contact Info) Description 03/02/2024 Orders Only [facility] [address] [place] [address] Adelaida Carrion, BRIANA [address] [place] [address] Social History Tobacco Use Types Packs/Day Years [...] declined 08/16/2023 How often do you attend druze or adventist serv ices? Never 08/16/2023 Do you belong to any clubs o r organizations such as druze groups, unions, fraternal or athletic groups, or [...] Questionnaire-2 Score 2 09/21/2023 [facility] - [facility]ational Stress Questionnaire [...] Office Visit [facility] [address] [place] [address] Adelaida Carrion NP [address] [place] [address] documented as of this encounter Procedures Procedure Name Priority Date/Time Associated Diagnosis Comments SCANNED LABS Routine 03/02/2024 7:33 AM EST documented in this encounter Results * SCANNED LABS (03/02/2024 7:33 AM EST) Adelaida Carrion [facility] CHG PERFORMABLES Final Resu lt documented in this encounter Visit Diagnoses Not on filedocumented in this encounter Additional Health Concerns Assessment Noted Time PHQ-9 Depression Total Score: 8 05/18/19 24 5:00 PM EST documented as of this encounter Care Teams Quarry Supervisor Dimension Stone Relationship Specialty Start Date End Date José Luis Roberts MD [address] [place] [address] PCP - General Family Medicine 02/02/24 Miriam Suarez DO [address] [place] [address] Referring Physician Neurology 06/29/23 Adelaida Carrion NP [address] [place] [address] Nurse Practitioner Family Medicine 01/27/24 Bong Rosado MA [address] [place] [address] Family Medicine 02/12/24 Juany Leggett PA [address] [place] [address] Physician Drum Sander Offbearer Neurology 07/26/24 documented as of this encounter
--- OUTSIDE RECORDS SUMMARY | 2024-09-26 12:50 | XMS_ITS | Clinical Summary ---
Author Organization [facility] Address [address] [place] [address] Care Team Providers Care Oceanography Teacher Name Role Phone Adelaida Carrion APRN - [...] mouth daily Active Multiple Vitamins-Minera ls (THERAPEUTIC MULTIVITAMIN-UT NERALS) tablet Take 1 tablet by mouth [...] = 0.6 oz pur e alcohol) Rarely [facility] Utilities Answer Date Recorded In the [...] slept in a correction (including now)? No 08/24/2023 Food Insecurity Answer [...] - 145 mmol/L 01/20/2024 11:15 PM EDT [facility] Potassium 4.6 3.7 - 5.3 mmol/L 01/20/2024 11:15 PM EDT [facility] Comment: Specimen hemolysis has exceeded the interference as defined by Paul. Value may be falsely increased. Suggest recollection if clinically indicated. Chloride 106 98 - 107 mmol/L 01/20/2024 11:15 PM EDT [facility] CO2 24 20 - 31 mmol/L 01/20/2024 11:15 PM T [facility] Anion Gap 10 9 - 16 mmol/L 01/20/2024 11:15 PM EDT [facility] Glucose 97 74 - 99 mg/dL 01/20/2024 11:15 PM T [facility] BUN 17 8 - 23 mg/dL 01/20/2024 11:15 PM T [facility] Creatinine 1.2(H) 0.50 - 0.90 mg/dL 01/20/2024 11:15 PM T [facility] Est, Glom Filt Rate 54(L) >60 mL/min/1.7 3m2 01/20/2024 11:15 PM EDT [facility] Comment: These results are not intended [...] 9 - 20 01/20/2024 11:15 PM EDT [facility] Calcium 8.8 8.6 - 10.4 mg/dL 01/20/2024 11:15 PM T [facility] Total Protein 6.5(L) 6.6 - 8.7 g/dL 01/20/2024 11:15 PM T [facility] Albumin 3.9 3.5 - 5.2 g/dL 01/20/2024 11:15 PM T [facility] Albumin/Globulin Ratio 1.5 1.0 - 2.5 01/20/2024 11:15 PM EDT [facility] Total Bilirubin 0.2 0.00 - 1.20 mg/dL 01/20/2024 11:15 PM T [facility] Alkaline Phosphatase 86 35 - 104 U/L 01/20/2024 11:15 PM EDT [facility] ALT 20 10 - 35 U/L 01/20/2024 11:15 PM T [facility] AST 27 10 - 35 U/L 01/20/2024 11:15 PM T [facility] Blood BLOOD SPECIMEN / Unknown 01/20/2024 11:15 PM EDT 01/21/2024 12:31 AM EDT us Rochelle Lopes MD CHEMISTRY ORDERABLES Final Resul t [facility] [address] [place] [address], [facility] [phone] from Last 3 Months or Most Recently Relevant to Health Maintenance Insurance Advance Directives Documents on File Type Date Recorded Patient Customs Broker Expl anation ACP-Advance Directive 09/04/2023 1:02 PM * Full Code (Latest Code Status on File) Date Activated Date Inactivated Comments 08/24/2023 3:10 PM 09/03/2023 6:08 PM Care Teams Oceanography Teacher Relationship Specialty Start Date End Date Adelaida Carrion, MOLD DRESSER - APARTMENT MANAGER [address] [place] [address] PCP - General Nurse Practitioner 01/04/18
--- OUTSIDE RECORDS SUMMARY | 2024-09-26 12:50 | XMS_ITS | Encounter Summary ---
Author Organization [facility] Address [address] [place] [address] Care Team Providers Care Aws Developer Name Role Phone Miriam Suarez DO Unavailable [phone] Adelaida Carrion NP Unavailable [phone] José Luis Roberts MD Primary Care Provider [phone] Bong Rosado MA Unavailable [phone] Juany Leggett Unavailable Reason for Visit * Reason Onset Date Comments Med Refill 04/12/2024 Encounter Details Date Type Department Care Team (Late st Contact Info) Description 04/12/2024 Refill [facility] [address] [place] [address] José Luis Roberts MD [address] [place] [address] Social History Tobacco Use Types Packs/Day Years [...] declined 08/16/2023 How often do you attend sikhism or nondenominational serv ices? Never 08/16/2023 Do you belong [...] Recorded Patient Health Questionnaire-2 Score 2 09/21/2023 [facility] Health - Occupational Stress [...] Miscellaneous Notes * Telephone Encounter - Adelaida Carrion, BRIANA - 04/12/2024 11:52 AM EST Contact pt, she will need to contact her neurologist for a refill of [place] documented in this encounter Plan of Treatment Upcoming Encounters Date Type Department Care Team (Late st Contact Info) Description 11/14/2024 9:40 AM EDT Office Visit [facility] [address] [place] [address] Adelaida Carrion NP [address] [place] [address] documented as of this encounter Visit Diagnoses Not on filedocumented in this encounter Additional Health Concerns Assessment Noted Time PHQ-9 Depression Total Score: 8 05/18/19 24 5:00 PM EST documented as of this encounter Care Teams Aws Developer Relationship Specialty Start Date End Date José Luis Roberts MD [address] [place] [id number] PCP - General Family Medicine 02/02/24 Miriam Suarez DO [address] [place] [address] Referring Physician Neurology 06/29/23 Adelaida Carrion NP [address] [place] [address] Nurse Practitioner Family Medicine 01/27/24 Bong Rosado MA [address] [place] [address] Family Medicine 02/12/24 Juany Leggett PA [address] [place] [address] Physician Job Press Operator Neurology 07/26/24 documented as of this encounter
--- OUTSIDE RECORDS SUMMARY | 2024-09-26 12:50 | XMS_ITS | Encounter Summary ---
Author Organization [facility] Address [address] [place] [address] Care Team Providers Care Ferryboat Captain Name Role Phone Miriam Suarez DO Unavailable [phone] Adelaida Carrion NP Unavailable [phone] José Luis Roberts MD Primary Care Provider Bong Rosado MA Unavailable [phone] Juany Leggett Unavailable Encounter Details Date Type Department Care Team (Late st Contact Info) Description 03/17/2024 Orders Only [facility] [address] [place] [address] Adelaida Carrion, BRIANA [address] [place] [address] Social History Tobacco Use Types Packs/Day Years [...] declined 08/16/2023 How often do you attend christianity or oriental orthodox serv ices? Never 08/16/2023 Do you belong to any clubs o r organizations such as christianity groups, unions, fraternal or athletic groups, or [...] Recorded Patient Health Questionnaire-2 Score 2 09/21/2023 [facility] - Occupational Stress Questionnaire [...] Visit [facility] [address] [place] [address] Adelaida Carrion NP [address] [place] [address] documented as of this encounter Procedures Procedure Name Priority Date/Time Associated Diagnosis Comments ECG 12-LEAD Routine 03/17/2024 9:17 AM EST documented in this encounter Results * ECG 12 lead (03/17/2024 9:17 AM EST) Adelaida Carrion NP ECG ORDERABLES Final Result documented in this encounter Visit Diagnoses Not on filedocumented in this encounter Additional Health Concerns Assessment Noted Time PHQ-9 Depression Total Score: 8 05/18/19 24 5:00 PM EST documented as of this encounter Care Teams Ferryboat Captain Relationship Specialty Start Date End Date José Luis Roberts MD [address] [place] [address] PCP - General Family Medicine 02/02/24 Miriam Suarez DO [address] [place] [address] Referring Physician Neurology 06/29/23 Adelaida Carrion NP [address] [place] [address] Nurse Practitioner Family Medicine 01/27/24 Bong Rosado MA [address] [place] [address] Family Medicine 02/12/24 Juany Leggett PA [address] [place] [address] Physician Appliance Mechanic Neurology 07/26/24 documented as of this encounter
--- OUTSIDE RECORDS SUMMARY | 2024-09-26 12:50 | XMS_ITS | Encounter Summary ---
Author Organization [facility] Address [address] [place] [address] Care Team Providers Care Neurosurgical Physician Assistant Name Role Phone Miriam Suarez DO Unavailable [phone] Adelaida Carrion NP Unavailable [phone] José Luis Roberts MD Primary Care Provider [phone] Bong Rosado MA Unavailable [phone] Juany Leggett Unavailable Reason for Visit * Reason Onset Date Comments Med Refill 07/08/2024 Encounter Details Date Type Department Care Team (Late st Contact Info) Description 07/08/2024 Refill [facility] [address] [place] [address] José Luis Roberts MD [address] [place] [address] Social History Tobacco Use Types [...] declined 08/16/2023 How often do you attend restorationism or hindu serv ices? Never 08/16/2023 Do you belong to any clubs o r organizations such as restorationism groups, unions, fraternal or athletic groups, or [...] Recorded Patient Health Questionnaire-2 Score 2 09/21/2023 [facility] [place] [facility] Occupat ional Health - Occupational Stress [...] LU - 07/19/2024 9:59 AM EDT Text Electrostatic Paint Operator Hi, this is Nasim Ingram. My date of versus 9162 was calling about the dilkon that I requested to be called in yesterday. There is nothing at drug more yet. Thank you. * Telephone Encounter - VALERIE LU - 07/18/2024 10:57 AM EDT Text Electrostatic Paint Operator Adelaida Fraser, this is Nasim Ingram. Surendra [phone] need to have you call in a prescription for [place] to the pharmacy at [facility], Dr. Ricci, other yeast infection, thank you. * Telephone Encounter - Adelaida Carrion NP - 07/13/2024 9:04 PM EDT Ordered by pain mgmt documented in this encounter Plan of Treatment Upcoming Encounters Date Type Department Care Team (Late st Contact Info) Description 11/14/2024 9:40 AM EDT Office Visit [facility] [address] [place] [phone] Adelaida Carrion NP [address] [place] [address] documented as of this encounter Visit Diagnoses Not on filedocumented in this encounter Additional Health Concerns Assessment Noted Time PHQ-9 Depression Total Score: 8 05/18/19 24 5:00 PM EST documented as of this encounter Care Teams Neurosurgical Physician Assistant Relationship Specialty Start Date End Date José Luis Roberts MD [address] [place] [address] PCP - General Family Medicine 02/02/24 Miriam Suarez DO [address] [place] [address] Referring Physician Neurology 06/29/23 Adelaida Carrion NP [address] [place] [address] Nurse Practitioner Family Medicine 01/27/24 Bong Rosado MA [address] [place] [address] Family Medicine 02/12/24 Juany Leggett PA [address] [place] [address] Physician Pit Laborer Neurology 07/26/24 documented as of this encounter
--- OUTSIDE RECORDS SUMMARY | 2024-09-26 12:51 | XMS_ITS | Clinical Summary ---
Author Organization [facility] Address [address] [place] [address] Care Team Providers Care Cash Analyst Name Role Phone Miriam Suarez DO Unavailable [phone] Adelaida Carrion NP Unavailable [phone] José Luis Roberts MD Primary Care Provider [phone] Bong Rosado MA Unavailable [phone] Juany Leggett Unavailable Allergies Active Allergy Reactions Criticality Noted Date Comments Eszopiclone Hallucinations,Anaph ylaxis High 09/21/2023 Altered mental status and non responsive Levetiracetam Hallucinations,Other Medium 12/12/2021 Milnacipran Hallucinations,Other ,Unknown Medium 12/12/2021 Other Other 12/12/2021 Penicillins Anaphylaxis High 12/12/2021 Prochlorperazine Unknown,Other Medium 12/12/2021 Tetracycline Hives,Unknown High 12/12/2021 Wound Dressing Adhesive Rash,Unknown Medium 09/19/2022 Medications Multiple Vitamins-Minerals (BARIATRIC MULTIVITAMINS/IRO N PO) Pt taking OTC ([employer] Active biotin 5 MG tablet Pt taking OTC ([employer] Active Calcium Citrate-Vitamin D (CITRACAL + D PO) Pt taking OTC ([employer]) Active Magnesium 400 MG capsule Pt taking OTC([employer]) Active traZODone (Desyrel) 150 MG tablet Take 150 mg by mouth at bedtime Active DULoxetine (Cymbalta) [address] capsule Take 60 mg by mouth in the morning and 60 mg before bedtime. Do not crush or chew.. Active Melatonin 12 MG tabletIndications :from amazon Take 1 tablet by mouth at bedtime Active tiZANidine (Zanaflex) 4 MG tablet Take 4 mg by mouth every 8 (eight) hours if needed for muscle spasms 1-2 tablets 4 Active Vraylar 3 MG capsule 4 Active gabapentin (Neurontin) 300 MG capsuleIndication s:Restless leg Take 1 capsule (300 mg) by mouth in the morning and 1 capsule (300 mg) before bedtime. Due now. 180 capsule 1 5 01/09/20 25 Active rOPINIRole (Requip) 3 MG tabletIndications :Restless Leg Syndrome Take 1 tablet (3 mg) by mouth at bedtime 90 tablet 2 5 10/25/19 25 Active diclofenac (Voltaren) 50 MG EC tablet 5 Active amLODIPine (Norvasc) 10 MG tabletIndications :Essential (primary) hypertension Take 1 tablet (10 mg) by mouth Daily 30 tablet 5 Active carvedilol (Coreg) 12.5 MG tabletIndications :Essential (primary) hypertension Take 1 tablet (12.5 mg) by mouth in the morning and 1 tablet (12.5 mg) in the evening. Take with meals. 60 tablet 5 Active fluticasone (Flonase) 50 MCG/ACT nasal sprayIndications: Allergic rhinitis, unspecified Administer 2 sprays into each nostril Daily 16 g 5 Active losartan (Cozaar) 100 MG tabletIndications :Essential (primary) hypertension Take 1 tablet (100 mg) by mouth Daily 30 tablet 5 Active omeprazole (PriLOSEC) [address] capsuleIndication s:Gastro-esophage al reflux disease without esophagitis Take 1 capsule (20 mg) by mouth in the morning. Take before meals. 30 capsule 5 Active spironolactone (Aldactone) 50 MG tabletIndications :Bilateral lower extremity edema Take 1 tablet (50 mg) by mouth Daily 30 tablet 5 Active fexofenadine (Naida) 180 MG tabletIndications :Allergic rhinitis, unspecified seasonality, unspecified trigger Take 1 tablet (180 mg) by mouth Daily 30 tablet 5 5 Active Active Problems Problem Noted Date Diagnosed [...] acute 06/14/2024 Chronic kidney disease, stage 3a 05/12/2024 Assessment & Plan (05/12/2024 6:40 AM EST): Monitor labs at minimum every year Body mass index (BMI) 45.0-49.9, adult 5 Primary hypertension 03/16/2024 Assessment & Plan (08/16/2024 [...] the ECHO on file from 05/10/2019 at [facility], as well as ECHO report from Mara Sampson earlier this year Well woman exam with routine gynecological exam 02/16/2024 Assessment & Plan (02/16/2024 6:57 AM EST): THIN PREP, fu as per PAP results indicate Monthly BSE Calcium/vit D supplement unless chronic conditions indicate not Exercise as chronic conditions allow Needs flu shot 01/28/2024 AVM (arteriovenous malformation) brain ([facility]) 10/11/2023 Vascular malformation ([facility]) 10/11/2023 Brain lesion 10/11/2023 Carpal tunnel syndrome, [...] (09/21/2023 12:47 PM EDT): Reviewed notes from [facility]'s Former cigarette smoker 08/17/2023 Overview (08/19/2023): LDCT [...] that supplies your machine and tubing/filters etc: [facility] Doctor that manages your OSMANY: Daniela Assessment [...] 1 twice a day #14 pills, Lot [id number], exp 06/29 Acute cough 07/14/2023 10/21/2023 Assessment & Plan (08/17/2023 10:06 AM EDT): resolved Influenza 07/14/2023 10/21/2023 Acute cystitis with hematuria 05/21/2023 10/21/2023 Right sided weakness 05/18/2023 024 Hemorrhoid 05/18/2023 03/16/2024 Overview (05/18/2023): int/external hemorrhoids Brain vascular malformation ([facility]) 05/18/2023 03/16/2024 Constipation 05/18/2023 08/17/2023 Colon polyps [...] of the risks of continued smoking: stroke, WI, all forms of cancer, lung disease, and [...] Encounters Date Type Department Care Team Description 09/21/2024 Patient Outreach [place] [id number] [place] [address] Bong Rosado MA 09/19/2024 Abstract [facility] [address] [place] [address] Adelaida Carrion NP 08/30/2024 Patient Outreach [place] [id number] [place] [address] Bong Rosado MA 08/16/2024 11:30 AM EDT Office Visit [facility] [address] [place] [address] Adelaida Carrion NP Primary hypertension (Primary Dx); Bronchitis; Bilateral lower extremity edema; Morbid (severe) obesity due to excess calories ([facility]); Pre-diabetes; Allergic rhinitis, unspecified seasonality, unspecified trigger; Encounter for screening mammogram for malignant neoplasm of breast; Former cigarette smoker 08/16/2024 Bamboo flowsheet [facility] [address] [place] [address] Adelaida Carrion NP 08/08/2024 Abstract [facility] [address] [place] [address] José Luis Roberts MD 07/27/2024 11:30 AM EDT Office Visit [facility] [address] [place] [address] Adelaida Carrion NP Primary hypertension (Primary Dx); Morbid (severe) obesity due to excess calories ([facility]); Essential (primary) hypertension ; Allergic rhinitis, unspecified; Gastro-esophageal reflux disease without esophagitis; Bilateral lower extremity edema; Bronchitis 07/27/2024 Bamboo flowsheet [facility] [address] [place] [address] Adelaida Carrion NP 07/26/2024 11:00 AM EDT Office Visit [facility] [address] [phone] Juany Leggett PA OSMANY (obstructive sleep apnea) (Primary Dx); Restless leg; 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[facility]); Concentration deficit 07/26/2024 Patient Outreach [facility] 2[facility] [address] [place] [address] Bong Rosado MA 07/26/2024 Bamboo flowsheet [facility] [address] [phone] Juany Leggett PA 07/08/2024 Refill [facility] [address] [place] [address] José Luis Roberts MD 07/08/2024 Refill [place] [facility] [address] [phone] Juany Leggett PA Restless leg 07/08/2024 Refill [facility] [address] [address] [place] [address] Juany Leggett PA Restless leg from Last [...] declined 08/16/2023 How often do you attend sikh or sikh serv ices? Never 08/16/2023 Do you belong to any clubs o r organizations such as sikh groups, unions, fraternal or athletic groups, or [...] Recorded Patient Health Questionnaire-2 Score 2 09/21/2023 [facility] - [...] Visit [facility] [address] [place] [address] Adelaida Carrion NP [address] [place] [address] Health Maintenance Due Date Last Done Comments CT Colonography 1960 FIT-DNA 1960 FIT 1960 FOBT 1960 Lung Cancer Screening Shared Decision Making 1960 Sigmoidoscopy 1960 HPV/Cotest 12/06/1991 Mammogram 09/17/2024 09/18/2023, 09/04, 09/15/2022 Medicare Annual Wellness (AWV) 02/15/2025 02/16/2024 , 05/18/2023 Cervical Cancer Screening 08/28/2025 Pap Smear 08/28/2025 08/28/2022 Colonoscopy 03/23/2033 03/23/2023, 02/04/2013 Colorectal Cancer Screening 03/23/2033 Influenza Vaccine Completed 01/28/2024, , 05/28/2018 Procedures Procedure Name Priority Date/Time Associated [...] Unknown 08/16/2024 11:53 AM EDT Adelaida Carrion JUNIOR PROGRAMMER POINT OF CARE TEST ENTER/EDIT O RDERABLES Final Result * MM TOMOSYNTHESIS SCREENING BI (09/18/2023 1:42 PM EDT) Anatomical Region Laterality Modality Other 09/18/2023 1:42 PM EDT Narrative 09/18/2023 1:43 PM EDT [address] [address] Mammography Report Signed Patient: NASIM INGRAM MR#: [id number] : 1960 Acct:[id number] Age/Sex: 62 / F ADM Date: 09/18/23 Loc: MAMMO Attending Dr: Adelaida Carrion NP Ordering Physician: Adelaida Carrion NP Results: Date of Service: 09/18/23 Follow Up: Procedure(s): MM tomosynthesis screening BI Accession Number(s): [id number] cc: Adelaida Carrion NP Patient Name: NASIM INGRAM MR#: [id number] : 1960 Exam Date: 09/18/2023 Ordering Doctor: [...] Treatments None Family Cancers None LOCATION: [facility] BREAST COMPOSITION: There are scattered areas [...] Signed By: 09/18/23 1343 DD/ 1342 TD/TT: Machine Slat Basket Maker: Procedure Note Radiology, Radiologist, MD - 09/18/2023 [place] [address] Mammography Report Signed Patient: NASIM INGRAM LMR#: [id number] : 2Acct:[id number] Age/Sex: 62 / FADM Date: 09/18/23 Loc: MAMMO Attending Dr: Adelaida Carrion NP Ordering Physician: Adelaida Carrion NPResults: Date of Service: 09/18/23Follow Up: Procedure(s): MM tomosynthesis screening BI Accession Number(s): [id number] cc: Adelaida Carrion NP Patient Name: NASIM INGRAM MR#: [id number] : 1960 Exam Date: 09/18/2023 Ordering Doctor: LIVIER Carrion SUPERVISOR MIRROR FABRICATION RADIOLOGY REPORT PROCEDURE: MM TOMOSYNTHESIS SCREENING BI COMPARISON: MM TOMOSYNTHESIS SCREENING BI, 09/15/2022. MG MAMM [id number] BHUMI CAD, 06/20/2021. INDICATIONS: Screening Calculator Name NCI Breast Cancer Risk Assessment Tool 5 Year Breast Cancer Risk 2.20% Lifetime Breast Cancer Risk 10.30% Personal Breast Cancer No Personal Ovarian Cancer No Treatments None Family Cancers None LOCATION: [facility] BREAST COMPOSITION: There are scattered areas [...] M.D. Signed By:09/18/23 1343 DD/ 1342 TD/TT: Machine Slat Basket Maker: Adelaida Carrion NP [facility] Final Result from Last 3 Months or Most Recently Relevant to Health Maintenance Insurance [employer] MEDICARE Advance Directives Documents on File Type Date Recorded Patient Bindery Worker Expl anation Power of Pea Viner Mechanic 03/16/2024 9:42 AM darian ellis of employment attorney Power of Pea Viner Mechanic 03/10/2024 3:12 PM POA Care Teams Cash Analyst Relationship Specialty Start Date End Date José Luis Roberts MD [address] [place] [address] PCP - General Family Medicine 02/02/24 Miriam Suarez DO [address] [id number] Referring Physician Neurology 06/29/23 Adelaida Carrion NP [address] [place] [address] Nurse Practitioner Family Medicine 01/27/24 Bong Rosado MA [address] [place] [address] Family Medicine 02/12/24 Juany Leggett PA [address] [place] [address] Physician Machine Clothing Worker Neurology 07/26/24
--- OUTSIDE RECORDS SUMMARY | 2024-09-26 12:51 | XMS_ITS | Encounter Summary ---
Author Organization [facility] Address [address] [place] [address] Care Team Providers Care Boulevard Glassware Replacer Name Role Phone Adelaida Carrion NP Unavailable [phone] José Luis Roberts MD Primary Care Provider [phone] Miriam Suarez DO Unavailable [phone] Mathew Parra DIRECTOR OF BUSINESS SERVICES Unavailable Unavailable Diana De Leon LPN Unavailable Unallocated, [facility]oms Provider Primary Care Provi kellee Adelaida Carrion NP Unavailable [phone] José Luis Roberts MD Primary Care Provider [phone] Bong Rosado MA Unavailable [phone] Juany Leggett Unavailable Encounter Details Date Type Department Care Team (Late st Contact Info) Description 08/19/2023 Clinisync Result Encounter [facility] External Department Unsolicited Adelaida Carrion NP [address] [place] [address] Social History Tobacco Use Types Packs/Day Years [...] declined 08/16/2023 How often do you attend episcopal or mosque serv ices? Never 08/16/2023 Do you belong to any clubs o r organizations such as episcopal groups, unions, fraternal or athletic groups, or [...] Recorded Patient Health Questionnaire-2 Score 0 08/17/2023 [facility] - Occupational [...] Visit [facility] [address] [place] [address] Adelaida Carrion NP [address] [place] [address] documented as of this encounter Procedures Procedure Name Priority Date/Time Associated Diagnosis Comments CT LUNG SCREENING LOW DOSE 08/19/2023 6:06 AM EDT documented in this encounter Results * CT LUNG SCREENING LOW DOSE (08/19/2023 6:06 AM EDT) Anatomical Region Laterality Modality Other 08/19/2023 6:06 AM EDT Narrative 08/19/2023 6:09 [place] [address] CT Scan Report Signed Patient: NASIM INGRAM MR#: [id number] : 1960 Acct:[id number] Age/Sex: 62 / F ADM Date: 08/18/23 Loc: CT Attending Dr: Adelaida Carrion ACCOUNTS CLERK Ordering Physician: Adelaida Carrion NP Date of Service: 08/18/23 Procedure(s): CT lung screening low-dose Accession Number(s): [id number] cc: Adelaida Carrion NP [address] [address] Patient Name: NASIM INGRAM MRN: [id number] date: 1960 Sex: F Assigned Patient Location: CT Current Patient Location: Accession/Order Number: [id number] Exam Date: 08/18/2023 13:28 Report Date: 08/19/2023 [...] M.D. Signed By: 08/19/23608 DD/ 5 TD/TT: Surg Physician Asst: Procedure Note Radiology, Radiologist, MD - 08/19/[address] [place] [id number] Scan Report Signed Patient: NASIM INGRAM LMR#: [id number] : 1960cct:[id number] Age/Sex: 62 / FADM Date: 08/18/23 Loc: CT Attending Dr: Adelaida Carrion NP Ordering Physician: Adelaida Carrion NP Date of Service: 08/18/23 Procedure(s): CT lung screening low-dose Accession Number(s): [id number] cc: Adelaida Carrion NP The [address] [address] Patient Name: NASIM INGRAM MRN: [id number] date: 1960 Sex: F Assigned Patient Location: CT Current Patient Location: Accession/Order Number: [id number] Exam Date: 08/18/2023 13:28 Report Date: 08/19/2023 [...] 06:06 Dictated By: Jace Dhillon M.D. Signed By:08/19/23608 DD/ 5 TD/TT: Surg Physician Asst: Adelaida Carrion ACCOUNTS CLERK [facility] Final Result documented in this encounter Visit Diagnoses Not on filedocumented in this encounter Additional Health Concerns Assessment Noted Time PHQ-9 Depression Total Score: 8 05/18/19 24 5:00 PM EST documented as of this encounter Care Teams Boulevard Glassware Replacer Relationship Specialty Start Date End Date José Luis Roberts MD [address] [place] [address] PCP - General Family Medicine 05/18/23 01/26/24 Unallocated, Noms MD Mariela [address] [place] [address] PCP - General Family Medicine 01/27/24 02/01/24 José Luis Roberts MD [address] [place] [address] PCP - General Family Medicine 02/02/24 Adelaida Carrion NP Referring Physician Nurse Practitioner 10/14/22 Miriam Suarez DO [address] [place], [place] [address] Referring Physician Neurology 06/29/23 Mathew Parra LPN Licensed Practical Nurse Family Medicine 07/23/23 Diana De Leon LPN [address] [place] [address] Licensed Practical Nurse Family Medicine 12/18/2302/11 Adelaida Carrion NP [address] [place] [address] Nurse Practitioner Family Medicine 01/27/24 Bong Rosado, [place] [address] [place] [address] Family Medicine 02/12/24 Juany Leggett PA [address] [place], [place] [address] Physician Glass Science Engineer Neurology 07/26/24 documented as of this encounter
--- OUTSIDE RECORDS SUMMARY | 2024-09-26 12:51 | XMS_ITS | Encounter Summary ---
Author Organization [facility] Address [address] [place] [address] Care Team Providers Care Test Tech Name Role Phone Adelaida Carrion NP Unavailable [phone] José Luis Roberts MD Primary Care Provider Miriam Suarez DO Unavailable [phone] Mathew Parra MANAGEMENT INSTRUCTOR Unavailable Unavailable Mathew Parra MANAGEMENT INSTRUCTOR Unavailable Unavailable Diana De Leon MANAGEMENT INSTRUCTOR Unavailable Unallocated, Noms Provider Primary Care Provi kellee Adelaida Carrion NP Unavailable [phone] José Luis Roberts MD Primary Care Provider [phone] Bong Rosado MA Unavailable [phone] Juany Leggett Unavailable Encounter Details Date Type Department Care Team (Late st Contact Info) Description 05/19/2023 Clinisync Result Encounter [facility] External Department Unsolicited Adelaida Carrion NP [address] [place] [address] Social History Tobacco Use Types Packs/Day Years [...] Never 05/18/2023 How often do you attend congregational or sikh serv ices? Never 05/18/2023 Do you belong to any clubs o r organizations such as congregational groups, unions, fraternal or athletic groups, or [...] Recorded Patient Health Questionnaire-2 Score 1 05/18/2023 [facility] Stress Questionnaire [...] place to sleep or slept in a group home (including now)? No 05/18/2023 Comments Unknown Sex [...] Visit [facility] [address] [place] [address] Adelaida Carrion NP [address] [place] [address] documented as of this encounter Procedures Procedure Name Priority Date/Time Associated Diagnosis Comments XR HIP LT MIN 2V 05/19/2023 9:31 AM EST documented in this encounter Results * XR HIP LT MIN 2V (05/19/2023 9:31 AM EST) Anatomical Region Laterality Modality Other 05/19/2023 9:31 AM EST Narrative 05/19/2023 9:34 AM EST [address] [address] XRay Report Signed Patient: NASIM BE MR#: [id number] : 1960 Acct:[id number] Age/Sex: 62 / F ADM Date: 05/19/23 Loc: RAD Attending Dr: Adelaida Carrion BUSINESS ANALYTICS SPECIALIST Ordering Physician: Adelaida Carrion NP Date of Service: 05/19/23 Procedure(s): XR hip LT min 2V Accession Number(s): [id number] cc: Adelaida Carrion NP [address] [address] Patient Name: NASIM BE MRN: [id number] date: 1960 Sex: F Assigned Patient Location: [facility] Current Patient Location: RAD Accession/Order Number: [id number] Exam Date: 05/19/2023 07:50 Report Date: 05/19/2023 [...] M.D. Signed By: 05/19/2334 DD/ 0 TD/TT: Director Of Assessing: Procedure Note Radiology, Radiologist, - 05/19/2023 [place] [address] XRay Report Signed Patient: NASIM BE LMR#: [id number] : 1960cct:[id number] Age/Sex: 62 / FADM Date: 05/19/23 Loc: RAD Attending Dr: Adelaida Carrion BUSINESS ANALYTICS SPECIALIST Ordering Physician: Adelaida Carrion NP Date of Service: 05/19/23 Procedure(s): XR hip LT min 2V Accession Number(s): [id number] cc: Adelaida Carrion NP The [place] [address] Patient Name: NASIM BE MRN: [id number] date: 1960 Sex: F Assigned Patient Location: [facility] Current Patient Location: [facility] Accession/Order Number: [id number] Exam Date: 05/19/2023 07:50 Report Date: 05/19/2023 [...] By: Harrison Maciel M.D. Signed By:05/19/2334 DD/ 0 TD/TT: Director Of Assessing: us Adelaida Carrion NP [facility] Final Result documented in this encounter Visit Diagnoses Not on filedocumented in this encounter Additional Health Concerns Assessment Noted Time PHQ-9 Depression Total Score: 8 05/18/19 24 5:00 PM EST documented as of this encounter Care Teams Test Tech Relationship Specialty Start Date End Date José Luis Roberts MD [address] [place] [address] PCP - General Family Medicine 05/18/23 01/26/24 Unallocated, Johan Sierra MD [address] [place] [address] PCP - General Family Medicine 01/27/24 02/01/24 José Luis Roberts MD [address] [place] [address] PCP - General Family Medicine 02/02/24 Adelaida Carrion NP Referring Physician Nurse Practitioner 10/14/22 Miriam Suarez DO [address] [place] [address] Referring Physician Neurology 06/29/23 Mathew Parra LPN Registered Nurse Family Medicine 07/07/23 07/08/23 Mathew Parra LPN Licensed Practical Nurse Family Medicine 07/23/23 Diana De Leon LPN [address] [place] [address] Licensed Practical Nurse Family Medicine 12/18/2302/11 Adelaida Carrion NP [address] [place] [place] [address] Nurse Practitioner Family Medicine 01/27/24 Bong Rosado MA [address] [place] [address] Family Medicine 02/12/24 Juany Leggett PA [address] [place] [address] Physician Email Designer Neurology 07/26/24 documented as of this encounter
--- OUTSIDE RECORDS SUMMARY | 2024-09-26 12:51 | XMS_ITS | Encounter Summary ---
Author Organization [facility] Address [address] [facility] [place] [address] Care Team Providers Care Paper Ruler Name Role Phone Adelaida Carrion NP Unavailable [phone] José Luis Roberts MD Primary Care Provider [phone] José Luis Roberts MD Primary Care Provider [phone] Miriam Suarez DO Unavailable [phone] [place], Ardana PURCHASING CONTRACTING CLERK Unavailable Unavailable Aida Ardana PURCHASING CONTRACTING CLERK Unavailable Unavailable Diana De Leon PURCHASING CONTRACTING CLERK Unavailable Unallocated, Noms Provider Primary Care Provi kellee Adelaida Carrion NP Unavailable José Luis Roberts MD Primary Care Provider [phone] Bong Rosado MA Unavailable [phone] Juany Leggett Unavailable Encounter Details Date Type Department Care Team (Late st Contact Info) Description 03/06/2023 Clinisync Result Encounter [facility] External Department Unsolicited Ashleigh Hines PA [address] [facility] 150 [place] [address] Social History Tobacco Use Types Packs/Day Years [...] Visit [facility] [address] [place] [address] Adelaida Carrion NP [address] [place] [address] documented as of this encounter Procedures Procedure Name Priority Date/Time Associated Diagnosis Comments KNEE RT WO CON 03/06/2023 3:5 5 PM EST documented in this encounter Results * MR KNEE RT WO CON (03/06/2023 3:55 PM EST) Anatomical Region Laterality Modality Other 03/06/2023 3:55 PM EST Narrative 03/06/2023 3:55 PM EST [address] [address] Magnetic Resonance Report Signed Patient: NASIM BE MR#: [id number] : 1960 Acct:[id number] Age/Sex: 62 / F ADM Date: 03/06/23 Loc: MRI Attending Dr: Ashleigh REDDY Ordering Physician: Ashleigh Hines Date of Service: 03/06/23 Procedure(s): knee RT wo con Accession Number(s): [id number] cc: Adelaida Carrion PROJECT ENGINEER; Ashleigh Hines [address] [address] Patient Name: NASIM BE MRN: [id number] date: 1960 Sex: F Assigned Patient Location: MRI Current Patient Location: MRI Accession/Order Number: [id number] Exam Date: 03/06/2023 09:30 Report Date: 03/06/2023 [...] Signed By: 03/06/23 1558 DD/ 1555 TD/TT: Litigation Attorney: Procedure Note Radiology, Radiologist, - 03/06/2023 [place] [address] Magnetic Resonance Report Signed Patient: NASIM BE LMR#: [id number] : 1960cct:[id number] Age/Sex: 62 / FADM Date: 03/06/23 Loc: MRI Attending Dr: Ashleigh REDDY Ordering Physician: Ashleigh Hines Date of Service: 03/06/23 Procedure(s): MR knee RT wo con Accession Number(s): [id number] cc: Adelaida Carrion NP; Ashleigh Hines [place] [address] Patient Name: NASIM BE MRN: [facility]:[id number] date: 1960 Sex: F Assigned Patient Location: MRI Current Patient Location: MRI Accession/Order Number: [id number] Exam Date: 03/06/2023 09:30 Report Date: 03/06/2023 [...] M.D. Signed By:03/06/23 1558 DD/ 1555 TD/TT: Litigation Attorney: us Ashleigh REDDY [facility] Final Resul t documented in this encounter Visit Diagnoses Not on filedocumented in this encounter Care Teams Paper Ruler Relationship Specialty Start Date End Date José Luis Roberts MD PCP - General Family Medicine 10/14/22 05/17/23 José Luis Roberts MD [address] [place] [address] PCP - General Family Medicine 05/18/23 01/26/24 Unallocated, Noms MD Mariela [address] [place] [address] PCP - General Family Medicine 01/27/24 02/01/24 José Luis Roberts MD [address] [place] [address] PCP - General Family Medicine 02/02/24 Adelaida Carrion NP Referring Physician Nurse Practitioner 10/14/22 Miriam Suarez DO [address] [place] [address] Referring Physician Neurology 06/29/23 Mathew Parra LPN Registered Nurse Family Medicine 07/07/23 07/08/23 Mathew Parra LPN Licensed Practical Nurse Family Medicine 07/23/23 Diana De Leon LPN [address] [place], [place] [address] Licensed Practical Nurse Family Medicine 12/18/2302/11 Adelaida Carrion NP [address] [place] [address] Nurse Practitioner Family Medicine 01/27/24 Bong Rosado, [place] [address] [place] [address] Family Medicine 02/12/24 Juany Leggett PA [address] [place] [address] Physician Nursing Student Neurology 07/26/24 documented as of this encounter
--- OUTSIDE RECORDS SUMMARY | 2024-09-26 12:51 | XMS_ITS | Encounter Summary ---
Author Organization [facility] Address [address] [place] [address] Care Team Providers Care Sculpture Instructor Name Role Phone Adelaida Carrion NP Unavailable [phone] José Luis Roberts MD Primary Care Provider [phone] José Luis Roberts MD Primary Care Provider [phone] Miriam Suarez DO Unavailable [phone] [place], Ardana ONLINE ADVERTISING MANAGER Unavailable Unavailable Fran Parradana ONLINE ADVERTISING MANAGER Unavailable Unavailable Diana De Leon ONLINE ADVERTISING MANAGER Unavailable Unallocated, Noms Provider Primary Care Provi kellee Adelaida Carrion COMPUTER INFORMATION SYSTEMS INSTRUCTOR Unavailable [phone] José Luis Roberts MD Primary Care Provider [phone] Bong Rosado MA Unavailable [phone] Juany Leggett Unavailable Encounter Details Date Type Department Care Team (Late st Contact Info) Description 11/14/2022 Abstract [facility] 112 [facility] 150 [place] [address] Travon Hines PA [address] [place] [facility] 150 [place] [address] Social History Tobacco Use Types Packs/Day Years [...] Office Visit JOHAN MANDUJANO [address] [place] [address] Adelaida Carrion NP [address] [place] [address] documented as of this encounter Visit Diagnoses Not on filedocumented in this encounter Care Teams Sculpture Instructor Relationship Specialty Start Date End Date José Luis Roberts MD PCP - General Family Medicine 10/14/22 05/17/23 José Luis Roberts MD [address] [place] [address] PCP - General Family Medicine 05/18/23 01/26/24 Unallocated, Johan Sierra MD [address] [place] [address] PCP - General Family Medicine 01/27/24 02/01/24 José Luis Roberts MD [address] [place] [address] PCP - General Family Medicine 02/02/24 Adelaida Carrion NP Referring Physician Nurse Practitioner 10/14/22 Miriam Suarez DO [address] [place], [place] [address] Referring Physician Neurology 06/29/23 Mathew Parra LPN Registered Nurse Family Medicine 07/07/23 07/08/23 Mathew Parra LPN Licensed Practical Nurse Family Medicine 07/23/23 Diana De Leon LPN [address] [place] [address] Licensed Practical Nurse Family Medicine 12/18/2302/11 Adelaida Carrion NP [address] [place] [address] Nurse Practitioner Family Medicine 01/27/24 Bong Rosado, [place] [address] [place] [address] Family Medicine 02/12/24 Juany Leggett PA [address] [place] [address] Physician Residential Treatment Staff Neurology 07/26/24 documented as of this encounter
--- OUTSIDE RECORDS SUMMARY | 2024-09-26 12:51 | XMS_ITS | Patient Health Record ---
Author Organization [facility] [place] Address [address] [place] [address] Care Team Providers Care Horse Racetrack Manager Name Role Phone Adelaida Carrion CNP Primary [...] Problem Status W/U Status Risk Notes Problem 57072001 Sprain of tarsometatarsal ligament of right foot, initial encounter (S93.621A) Active confirmed Problem 947640237 Lumbar postlaminectomy syndrome (M96.1) Active confirmed Problem 19171875 Lumbosacral spondylosis without myelopathy (M47.817) Active confirmed Problem Altered mental status (159674382) Altered mental status (R41.82) Active confirmed Plan [...] [employer] MEDICARE PPO [address] [address] [place], [place] [id number] Nasim Conway Self - patient is the insured [place] [address] [place] [address] [id number] Nasim Conway Self - patient is the insured Medical (General) History Medical History History ICD Code Right foot pain M79.671 hypertension dysphagia Osteoporosis M81.0 Bipolar disorder with severe depression F31.4 Brain vascular 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
--- OUTSIDE RECORDS SUMMARY | 2024-09-26 12:51 | XMS_ITS ---
Author Organization [facility] Address [address] [place] [address] Care Team Providers Care Java Manager Name Role Phone Miriam Suarez DO Unavailable [phone] Adelaida Carrion NP Unavailable [phone] José Luis Roberts MD Primary Care Provider [phone] Bong Rosado MA Unavailable [phone] Juany Leggett Unavailable Chronic Care Management (CCM) [...] Name Relationship Phone Bong Rosado MA(Responsible Staff) [phone] Continued Care and Services Coordination
--- OUTSIDE RECORDS SUMMARY | 2024-09-26 12:51 | XMS_ITS | Clinical Summary ---
Author Organization [employer] tem Address [id number] [address] [place] [address] Care Team Providers Care Asphalt Tar And Gravel Roofer Name Role Phone Adelaida Carrion APRN-CLINICAL APPLICATION MANAGER Primary Care Provider Medications gabapentin (NEURONTIN) 600 [...] 2024 Medical Devices Not on file Insurance [employer] MEDICARE Care Teams Asphalt Tar And Gravel Roofer Relationship Specialty Start Date End Date Adelaida Carrion, ROSS-CLINICAL APPLICATION MANAGER PCP - General Nurse Practitioner 12/10/16
--- OUTSIDE RECORDS SUMMARY | 2024-09-26 12:51 | XMS_ITS | Encounter Summary ---
Author Organization [facility] Address [address] [place] [address] Care Team Providers Care Marketing Underwriter Name Role Phone Adelaida Carrion NP Unavailable [phone] José Luis Roberts MD Primary Care Provider [phone] Miriam Suarez DO Unavailable [phone] Mathew Parra CORN GRINDER Unavailable Unavailable Diana De Leon CORN GRINDER Unavailable Unallocated, Noms Provider Primary Care Provi kellee Adelaida Carrion NP Unavailable [phone] José Luis Roberts MD Primary Care Provider [phone] Bong Rosado MA Unavailable [phone] Juany Leggett Unavailable Encounter Details Date Type Department Care Team (Late st Contact Info) Description 08/25/2023 Orders Only [facility] [address] [place] [address] Adelaida Carrion NP [address] [place] [address] Social History Tobacco Use Types [...] declined 08/16/2023 How often do you attend jainism or religion serv ices? Never 08/16/2023 Do you belong to any clubs o r organizations such as jainism groups, unions, fraternal or athletic groups, or [...] Recorded Patient Health Questionnaire-2 Score 0 08/17/2023 [facility] of Occupat ional Health - [...] Visit [facility] [address] [place] [address] Adelaida Carrion, BRIANA [address] [place] [address] documented as of this encounter Procedures Procedure Name Priority Date/Time Associated Diagnosis Comments ELECTROCARDIOGRAM REPORT Routine 024 8:39 AM EDT documented in this encounter Results * Electrocardiogram Report (08/24/2023 8:39 AM EDT) us Adelaida Carrion BARREL LATHE OPERATOR OUTSIDE IN CLINIC/BEDSIDE ORDERABLES Fi nal Result documented in this encounter Visit Diagnoses Not on filedocumented in this encounter Additional Health Concerns Assessment Noted Time PHQ-9 Depression Total Score: 8 05/18/19 24 5:00 PM EST documented as of this encounter Care Teams Marketing Underwriter Relationship Specialty Start Date End Date José Luis Roberts MD [address] [place] [address] PCP - General Family Medicine 05/18/23 01/26/24 Unallocated, Johan Sierra MD [address] [place] [address] PCP - General Family Medicine 01/27/24 02/01/24 José Luis Roberts MD [address] [place] [address] PCP - General Family Medicine 02/02/24 Adelaida Carrion NP Referring Physician Nurse Practitioner 10/14/22 Miriam Suarez DO [address] [place], [place] [address] Referring Physician Neurology 06/29/23 Mathew Parra LPN Licensed Practical Nurse Family Medicine 07/23/23 Diana De Leon LPN [address] [place] [address] Licensed Practical Nurse Family Medicine 12/18/2302/11 Adelaida Carrion NP [address] [place] [address] Nurse Practitioner Family Medicine 01/27/24 Bong Rosado, [place] [address] [place] [address] Family Medicine 02/12/24 Juany Leggett PA [address] [place] [address] Physician American History Teacher Neurology 07/26/24 documented as of this encounter
--- OUTSIDE RECORDS SUMMARY | 2024-09-26 12:51 | XMS_ITS | Encounter Summary ---
Author Organization [facility] Address [address] [place] [address] Care Team Providers Care Typing Teacher Name Role Phone Adelaida Carrion NP Unavailable [phone] José Luis Roberts MD Primary Care Provider [phone] José Luis Roberts MD Primary Care Provider [phone] Miriam Suarez DO Unavailable [phone] [place], Ardana TECHNICAL SERVICES CONSULTANT Unavailable Unavailable Fran Parradana TECHNICAL SERVICES CONSULTANT Unavailable Unavailable Diana De Leon TECHNICAL SERVICES CONSULTANT Unavailable Unallocated, Noms Provider Primary Care Provi kellee Adelaida Carrion [employer]CHO[employer] DEAN Unavailable [phone] José Luis Roberts MD Primary Care Provider [phone] Bong Rosado MA Unavailable [phone] Juany Leggett Unavailable Encounter Details Date Type Department Care Team (Late st Contact Info) Description 01/23/2023 Abstract [facility] 112 [facility] 150 [place] [address] Travon Hines PA [address] [facility] 150 [place] [address] Social History Tobacco Use Types Packs/Day Years [...] Office Visit NOMZayra MANDUJANO [address] [place] [address] Adelaida Carrion NP [address] [place] [address] documented as of this encounter Visit Diagnoses Not on filedocumented in this encounter Care Teams Typing Teacher Relationship Specialty Start Date End Date José Luis Roberts MD PCP - General Family Medicine 10/14/22 05/17/23 José Luis Roberts MD [address] [place] [address] PCP - General Family Medicine 05/18/23 01/26/24 Unallocated, Johan Sierra MD [address] [place] [address] PCP - General Family Medicine 01/27/24 02/01/24 José Luis Roberts MD [address] [place] [address] PCP - General Family Medicine 02/02/24 Adelaida Carrion NP Referring Physician Nurse Practitioner 10/14/22 Miriam Suarez DO [address] [place], [place] [address] Referring Physician Neurology 06/29/23 Mathew Parra LPN Registered Nurse Family Medicine 07/07/23 07/08/23 Mathew Parra LPN Licensed Practical Nurse Family Medicine 07/23/23 Diana De Leon LPN [address] [place] [address] Licensed Practical Nurse Family Medicine 12/18/2302/11 Adelaida Carrion NP [address] [place] [address] Nurse Practitioner Family Medicine 01/27/24 Bong Rosado, [place] [address] [place] [address] Family Medicine 02/12/24 Juany Leggett PA [address] [place] [address] Physician Lens Generator Neurology 07/26/24 documented as of this encounter
--- OUTSIDE RECORDS SUMMARY | 2024-09-26 12:51 | XMS_ITS | Encounter Summary ---
Author Organization [facility] Address [address] [place] [address] Care Team Providers Care Furnace Tender Name Role Phone Adelaida Carrion NP Unavailable [phone] José Luis Roberts MD Primary Care Provider Miriam Suarez DO Unavailable [phone] Diana De Leon LPN Unavailable Unallocated, Noms Provider Primary Care Provi kellee Adelaida Carrion NP Unavailable [phone] José Luis Roberts MD Primary Care Provider [phone] Bong Rosado MA Unavailable [phone] Juany Leggett Unavailable Encounter Details Date Type Department Care Team (Late st Contact Info) Description 01/21/2024 Orders Only [facility] [address] [place] [address] Adelaida Carrion NP [address] [place] [address] Social History Tobacco Use Types [...] declined 08/16/2023 How often do you attend jain or restorationism serv ices? Never 08/16/2023 Do you belong to any clubs o r organizations such as jain groups, unions, fraternal or athletic groups, or [...] Recorded Patient Health Questionnaire-2 Score 2 09/21/2023 [facility] of Occupat ional Health - Occupational Stress [...] EDT Office Visit [facility] [address] [place] [address] Adelaida Carrion, BRIANA [address] [place] [address] documented as of this encounter Procedures Procedure Name Priority Date/Time Associated Diagnosis Comments CT HEAD OR BRAIN W/ & W/O CONTRAST Routine 01/21/2024 9:10 AM EDT documented in this encounter Results * CT HEAD OR BRAIN W/ & W/O CONTRAST (01/21/2024 9:10 AM EDT) Anatomical Region Laterality Modality Radiographic Nelda ging us Adelaida Carrion ACCOUNTING SPECIALIST IMG XR PROCEDURES Final Result documented in this encounter Visit Diagnoses Not on filedocumented in this encounter Additional Health Concerns Assessment Noted Time PHQ-9 Depression Total Score: 8 05/18/19 24 5:00 PM EST documented as of this encounter Care Teams Furnace Tender Relationship Specialty Start Date End Date José Luis Roberts MD [address] [place] [address] PCP - General Family Medicine 05/18/23 01/26/24 Unallocated, Johan Sierra MD [address] [address] PCP - General Family Medicine 01/27/24 02/01/24 José Luis Roberts MD [address] [place] [address] PCP - General Family Medicine 02/02/24 Adelaida Carrion NP Referring Physician Nurse Practitioner 10/14/22 Miriam Suarez DO [address] [place], [place] [address] Referring Physician Neurology 06/29/23 Diana De Leon LPN [address] [place] [address] Licensed Practical Nurse Family Medicine 12/18/2302/11 Adelaida Carrion NP [address] [place] [address] Nurse Practitioner Family Medicine 01/27/24 Bong Rosado, [place] [address] [place] [address] Family Medicine 02/12/24 Juany Leggett PA [address] [place], [place] [address] Physician Grey Stock Recorder Neurology 07/26/24 documented as of this encounter
--- OUTSIDE RECORDS SUMMARY | 2024-09-26 12:51 | XMS_ITS | Encounter Summary ---
Author Organization [facility] Address [address] [place] [address] Care Team Providers Care Safety Compliance Specialist Name Role Phone Adelaida Carrion NP Unavailable [phone] José Luis Roberts MD Primary Care Provider [phone] Miriam Suarez DO Unavailable [phone] Mathew Parra JAVA LEAD DEVELOPER Unavailable Unavailable Diana De Leon JAVA LEAD DEVELOPER Unavailable Unallocated, Noms Provider Primary Care Provi kellee Adelaida Carrion NP Unavailable [phone] José Luis Roberts MD Primary Care Provider [phone] Bong Rosado MA Unavailable [phone] Juany Leggett Unavailable Encounter Details Date Type Department Care Team (Late st Contact Info) Description 08/26/2023 Orders Only [facility] [address] [place] [address] Arsalan Hagen MD [address] [address] Social History Tobacco Use Types Packs/Day Years [...] declined 08/16/2023 How often do you attend religion or jehovah's witness serv ices? Never 08/16/2023 Do you belong to any clubs o r organizations such as religion groups, unions, fraternal or athletic groups, or [...] Recorded Patient Health Questionnaire-2 Score 0 08/17/2023 [facility] [place] of Occupat ional Health - Occupational Stress [...] in a group home (including now)? No 08/16/2023 Housing Stability [...] 9:40 AM EDT Office Visit [facility] [address] [place] [address] Adelaida Carrion, BRIANA [address] [place] [address] documented as of this encounter Procedures Procedure [...] documented as of this encounter Care Teams Safety Compliance Specialist Relationship Specialty Start Date End Date José Luis Roberts MD [address] [place] [address] PCP - General Family Medicine 05/18/23 01/26/24 Unallocated, Johan Sierra MD [address] [place] [address] PCP - General Family Medicine 01/27/24 02/01/24 José Luis Roberts MD [address] [place] [address] PCP - General Family Medicine 02/02/24 Adelaida Carrion, BRIANA Referring Physician Nurse Practitioner 10/14/22 Miriam Suarez DO [address] [place], [place] [address] Referring Physician Neurology 06/29/23 Mathew Parra LPN Licensed Practical Nurse Family Medicine 07/23/23 Diana De Leon LPN [address] [place] [address] Licensed Practical Nurse Family Medicine 12/18/2302/11 Adelaida Carrion NP [address] [facility] [place] [address] Nurse Practitioner Family Medicine 01/27/24 Bong Rosado, [place] [address] [place] [address] Family Medicine 02/12/24 Juany Leggett PA [address] [place] [address] Physician Quality Improvement Specialist Neurology 07/26/24 documented as of this encounter
--- OUTSIDE RECORDS SUMMARY | 2024-09-26 12:51 | XMS_ITS | Encounter Summary ---
Author Organization [facility] Address [address] [place] [address] Care Team Providers Care Pneumatic System Conveyor Operator Name Role Phone Adelaida Carrion NP Unavailable [phone] José Luis Roberts MD Primary Care Provider José Luis Roberts MD Primary Care Provider [phone] Miriam Suarez DO Unavailable [phone] [place], Ardana SALES DEPARTMENT SUPERVISOR Unavailable Unavailable Aida Ardana SALES DEPARTMENT SUPERVISOR Unavailable Unavailable Diana De Leon SALES DEPARTMENT SUPERVISOR Unavailable Unallocated, Noms Provider Primary Care Provi kellee Adelaida Carrion NP Unavailable [phone] José Luis Roberts MD Primary Care Provider [phone] Bong Rosado MA Unavailable [phone] Juany Leggett Unavailable Encounter Details Date Type Department Care Team (Late st Contact Info) Description 03/25/2023 Abstract [facility] [address] [place] [address] Adelaida Carrion NP [address] [place] [address] Social History Tobacco Use Types Packs/Day Years [...] Office Visit JOHAN MANDUJANO [address] [place] [address] Adealida Carrion NP [address] [place] [address] documented as of this encounter Visit Diagnoses Not on filedocumented in this encounter Care Teams Pneumatic System Conveyor Operator Relationship Specialty Start Date End Date José Luis Roberts MD PCP - General Family Medicine 10/14/22 05/17/23 José Luis Roberts MD [address] [place] [address] PCP - General Family Medicine 05/18/23 01/26/24 Unallocated, Johan Sierra MD [address] [place] [place] [address] PCP - General Family Medicine 01/27/24 02/01/24 José Luis Roberts MD [address] [place] [address] PCP - General Family Medicine 02/02/24 Adelaida Carrion NP Referring Physician Nurse Practitioner 10/14/22 Miriam Suarez DO [address] [place], [place] [address] Referring Physician Neurology 06/29/23 Mathew Parra LPN Registered Nurse Family Medicine 07/07/23 07/08/23 Mathew Parra LPN Licensed Practical Nurse Family Medicine 07/23/23 Diana De Leon LPN [address] [place], [place] [address] Licensed Practical Nurse Family Medicine 12/18/2302/11 Adelaida Carrion NP [address] [place] [address] Nurse Practitioner Family Medicine 01/27/24 Bong Rosado, [place] [address] [place] [address] Family Medicine 02/12/24 Juany Leggett PA [address] [place] [address] Physician Laborer Tree Tapping Neurology 07/26/24 documented as of this encounter
--- OUTSIDE RECORDS SUMMARY | 2024-09-26 12:51 | XMS_ITS | Encounter Summary ---
Author Organization [facility] Address [address] [place] [address] Care Team Providers Care Veterinary Pharmacologist Name Role Phone Adelaida Carrion NP Unavailable [phone] José Luis Roberts MD Primary Care Provider [phone] José Luis Roberts MD Primary Care Provider [phone] Miriam Suarez DO Unavailable [phone] [place], Ardana DELIVERY ENGINEER Unavailable Unavailable Aida Ardana DELIVERY ENGINEER Unavailable Unavailable Diana De Leon DELIVERY ENGINEER Unavailable Unallocated, Noms Provider Primary Care Provi kellee Adelaida Carrion NP Unavailable [phone] José Luis Roberts MD Primary Care Provider [phone] Bong Rosado MA Unavailable [phone] Juany Leggett Unavailable Encounter Details Date Type Department Care Team (Late st Contact Info) Description 03/26/2023 Clinisync Result Encounter [facility] External Department Unsolicited Adelaida Carrion NP [address] [place] [address] Social History Tobacco Use Types Packs/Day Years [...] Visit [facility] [address] [place] [address] Adelaida Carrion NP [address] [place] [address] documented as of this encounter Procedures Procedure Name Priority Date/Time Associated Diagnosis Comments XR FOOT LT MIN 3V 03/26/2023 8:1 4 AM EST documented in this encounter Results * XR FOOT LT MIN 3V (03/26/2023 8:14 AM EST) Anatomical Region Laterality Modality Other 03/26/2023 8:14 AM EST Narrative 03/26/2023 8:17 AM EST [address] [address] XRay Report Signed Patient: NASIM INGRAM MR#: [id number] : 1960 Acct:[id number] Age/Sex: 62 / F ADM Date: 03/25/23 Loc: [facility] Attending Dr: Adelaida Carrion NP Ordering Physician: Adelaida Carrion NP Date of Service: 03/25/23 Procedure(s): XR foot LT min 3V Accession Number(s): [id number] cc: Adelaida Carrion NP [address] [address] Patient Name: NASIM INGRAM MRN: [id number] date: 1960 Sex: F Assigned Patient Location: [facility] Current Patient Location: Accession/Order Number: [id number] Exam Date: 03/25/2023 15:34 Report Date: 03/26/2023 08:14 At the request of: ADELAIDA CARRION Procedure: XR foot LT min 3V PROCEDURE: XR foot LT min 3V DATE: 03/25/2023 2:34 PM MANAGER DEMAND COMPARISONS: None CLINICAL INDICATION: left foot pain M79.672 FINDINGS: There is no evidence of fractures or other osseous abnormalities. There is small spur off the posterior inferior os calcis. There is moderate spur off the posterior os calcis at the attachment of the Achilles. XR/XR foot LT min 3V IMPRESSION: Left foot radiographs show no evidence of acute abnormalities. Electronically authenticated by: VALERY BLOOM Date: 03/26/2023 08:14 Dictated By: Valery Bloom M.D. Signed By: 03/26/23816 DD/ 3 TD/TT: Tankerman: Procedure Note Radiology, Radiologist, MD - 03/26/2023 [place] [address] XRay Report Signed Patient: NASIM INGRAM LMR#: [id number] : 1960cct:[id number] Age/Sex: 62 / FADM Date: 03/25/23 Loc: RAD Attending Dr: Adelaida Carrion NP Ordering Physician: Adelaida Carrion NP Date of Service: 03/25/23 Procedure(s): XR foot LT min 3V Accession Number(s): [id number] cc: Adelaida Carrion NP The [address] [address] Patient Name: NASIM INGRAM MRN: [id number] date: 1960 Sex: F Assigned Patient Location: [facility] Current Patient Location: Accession/Order Number: [id number] Exam Date: 03/25/2023 15:34 Report Date: 03/26/2023 08:14 At the request of: ADELAIDA CARRION Procedure: XR foot LT min 3V PROCEDURE: XR foot LT min 3V DATE: 03/25/2023 2:34 PM MANAGER DEMAND COMPARISONS: None CLINICAL INDICATION: left foot pain M79.672 FINDINGS: There is no evidence of fractures or other osseous abnormalities. There is small spur off the posterior inferior os calcis. There ismoderate spur off the posterior os calcis at the attachment of the Achilles. XR/XR foot LT min 3V IMPRESSION: Left foot radiographs show no evidence of acute abnormalities. Electronically authenticated by: VALERY BLOOM Date: 03/26/2023 08:14 Dictated By: Valery Bloom M.D. Signed By:03/26/23816 DD/ 3 TD/TT: Tankerman: us Adelaida Carrion [facility] Final Result documented in this encounter Visit Diagnoses Not on filedocumented in this encounter Care Teams Veterinary Pharmacologist Relationship Specialty Start Date End Date José Luis Roberts MD PCP - General Family Medicine 10/14/22 05/17/23 José Luis Roberts MD [address] [place] [address] PCP - General Family Medicine 05/18/23 01/26/24 Unallocated, Noms MD Mariela [address] [place] [id number] PCP - General Family Medicine 01/27/24 02/01/24 José Luis Roberts MD [address] [place] [address] PCP - General Family Medicine 02/02/24 Adelaida Carrion NP Referring Physician Nurse Practitioner 10/14/22 Miriam Suarez DO [address] [place] [address] Referring Physician Neurology 06/29/23 Mathew Parra LPN Registered Nurse Family Medicine 07/07/23 07/08/23 Mathew Parra LPN Licensed Practical Nurse Family Medicine 07/23/23 Diana De Leon LPN [address] [facility] [place] [address] Licensed Practical Nurse Family Medicine 12/18/2302/11 Adelaida Carrion NP [address] [place] [address] Nurse Practitioner Family Medicine 01/27/24 Bong Rosado, [place] [address] [place] [address] Family Medicine 02/12/24 Juany Leggett PA [address] [place] [address] Physician Lease Analyst Neurology 07/26/24 documented as of this encounter
--- OUTSIDE RECORDS SUMMARY | 2024-09-26 12:51 | XMS_ITS | Encounter Summary ---
Author Organization [facility] Address [address] [place] [address] Care Team Providers Care Dispatch Machine Runner Name Role Phone Miriam Suarez DO Unavailable [phone] Adelaida Carrion NP Unavailable [phone] José Luis Roberts MD Primary Care Provider [phone] Bong Rosado MA Unavailable [phone] Juany Leggett Unavailable Encounter Details Date Type Department Care Team (Late st Contact Info) Description 09/21/2024 Patient Outreach [facility] [address] [place] [address] Bong Rosado MA [address] [place] [address] Social History Tobacco Use Types Packs/Day Years [...] How often do you attend temple or worship serv ices? Never 08/16/2023 Do you belong [...] Recorded Patient Health Questionnaire-2 Score 2 09/21/2023 [facility] - Occupational [...] place to sleep or slept in a skilled nursing (including now)? No 08/16/2023 Housing Stability Vital [...] PM EDT documented as of this encounter Progress Notes * Bong Rosado MA - 09/21/2024 3:02 PM EDT Pt contacted for outreach call. Pt states she is doing better. She [facility] [place]. Group therapy is really helping, she said. It helps with coping mechanisms. She is compliant with her medications with no side effects to report. Pt had appt on Thursday with Pain Mgmt and she got her first injection. Pt states so far so good, still has slight pain when reaching for things like her heating pad. But she is aware it will take up to 8 weeks for full effect of medication. Pt is staying home out of the heat. When asked about med refills, she looked at her bottles and she said she has five refills left on all her meds from PCP. She is buying the Naida OTC now as insurance isn't covering it. She did ask for another Rx for handicap placard as it expires in January. Drip Molder added request to appt info for pt as she is scheduled on 11/14 with PCP. Pt states BP readings have been within normal limits, going well. Pt encouraged to call with any needs and she voiced understanding. documented in this encounter Plan of Treatment Upcoming Encounters Date Type Department Care Team (Late st Contact Info) Description 11/14/2024 9:40 AM EDT Office Visit [facility] [address] [place] [address] Adelaida Carrion NP [address] [place] [address] documented as of this encounter Visit Diagnoses Diagnosis Primary hypertension- Primary Unspecified essential hypertension Bipolar disorder with severe depression (HCC) documented in this encounter Additional Health Concerns Assessment Noted Time PHQ-9 Depression Total Score: 8 05/18/19 24 5:00 PM EST documented as of this encounter Care Teams Dispatch Machine Runner Relationship Specialty Start Date End Date José Luis Roberts MD [address] [place] [address] PCP - General Family Medicine 02/02/24 Miriam Suarez DO [address] [place] [address] Referring Physician Neurology 06/29/23 Adelaida Carrion NP [address] [place] [address] Nurse Practitioner Family Medicine 01/27/24 Bong Rosado MA [address] [place] [address] Family Medicine 02/12/24 Juany Leggett PA [address] [place] [address] Physician Color Print Inspector Neurology 07/26/24 documented as of this encounter
--- OUTSIDE RECORDS SUMMARY | 2024-09-26 12:51 | XMS_ITS | Clinical Summary ---
Author Organization [facility] Address [address] [place] [address] Care Team Providers Care Barmaid Name Role Phone Unavailable Primary Care Provider Unavailabl e Social History Tobacco Use Types Packs/Day Years Used Date Smoking Tobacco: Never Assessed Comments Unknown Sex and Gender Information Value Date Recorded Sex Assigned at Not on file Legal Sex Female 11:42 PM EDT Gender Identity Not on file [...]
--- OUTSIDE RECORDS SUMMARY | 2024-09-26 12:51 | XMS_ITS | Encounter Summary ---
Author Organization [facility] Address [address] [place] [address] Care Team Providers Care Clothing Supervisor Name Role Phone Miriam Suarez DO Unavailable [phone] Adelaida Carrion NP Unavailable [phone] José Luis Roberts MD Primary Care Provider Bong Rosado MA Unavailable [phone] Juany Leggett Unavailable Encounter Details Date Type Department Care Team (Late st Contact Info) Description 03/08/2024 Orders Only [facility] [address] [place] [address] Dennis Steel DO Social History [...] declined 08/16/2023 How often do you attend anglican or faith serv ices? Never 08/16/2023 Do you belong to any clubs o r organizations such as anglican groups, unions, fraternal or athletic groups, or [...] Recorded Patient Health Questionnaire-2 Score 2 09/21/2023 [facility] - Occupational [...] Visit [facility] [address] [place] [address] Adelaida Carrion NP [address] [place] [address] documented as of this encounter Procedures Procedure [...] documented as of this encounter Care Teams Clothing Supervisor Relationship Specialty Start Date End Date José Luis Roberts MD [address] [place] [address] PCP - General Family Medicine 02/02/24 Miriam Suarez DO [address] [place] [address] Referring Physician Neurology 06/29/23 Adelaida Carrion NP [address] [place] [address] Nurse Practitioner Family Medicine 01/27/24 Bong Rosado MA [address] [place] [address] Family Medicine 02/12/24 Juany Leggett PA [address] [place], [place] [address] Physician Shoulder Joiner Neurology 07/26/24 documented as of this encounter
--- OUTSIDE RECORDS SUMMARY | 2024-09-26 12:51 | XMS_ITS | Encounter Summary ---
Author Organization [facility] Address [address] [place] [address] Care Team Providers Care Steel Placer Name Role Phone Adelaida Carrion NP Unavailable [phone] José Luis Roberts MD Primary Care Provider [phone] Miriam Suarez DO Unavailable [phone] Mathew Parra OFFICE SPEC Unavailable Unavailable Diana De Leon LPN Unavailable Unallocated, Noms Provider Primary Care Provi kellee Adelaida Carrion NP Unavailable [phone] José Luis Roberts MD Primary Care Provider [phone] Bong Rosado MA Unavailable [phone] Juany Leggett Unavailable Encounter Details Date Type Department Care Team (Late st Contact Info) Description 09/01/2023 Orders Only [facility] [address] [place] [address] Shaikh Alberto MD [address] [address] Social History Tobacco Use Types [...] How often do you attend moravian or judaism serv ices? Never 08/16/2023 Do [...] Recorded Patient Health Questionnaire-2 Score 0 08/17/2023 [facility] [...] [facility] [address] [place] [address] Adelaida Carrion NP [address] [place] [address] documented as of this encounter Procedures Procedure [...] documented as of this encounter Care Teams Steel Placer Relationship Specialty Start Date End Date José Luis Roberts MD [address] [place] [address] PCP - General Family Medicine 05/18/23 01/26/24 Unallocated, Johan Sierra MD [address] [place] [address] PCP - General Family Medicine 01/27/24 02/01/24 José Luis Roberts MD [address] [place] [address] PCP - General Family Medicine 02/02/24 Adelaida Carrion NP Referring Physician Nurse Practitioner 10/14/22 Miriam Suarez DO [address] [place], [place] [address] Referring Physician Neurology 06/29/23 Mathew Parra LPN Licensed Practical Nurse Family Medicine 07/23/23 Diana De Leon LPN [address] [place] [address] Licensed Practical Nurse Family Medicine 12/18/2302/11 Adelaida Carrion NP [address] [place] [address] Nurse Practitioner Family Medicine 01/27/24 Bong Rosado MA [address] [place] [address] Family Medicine 02/12/24 Juany Leggett PA [address] [place], [place] [address] Physician Test Lab Technician Neurology 07/26/24 documented as of this encounter
--- OUTSIDE RECORDS SUMMARY | 2024-09-26 12:51 | XMS_ITS | Encounter Summary ---
Author Organization [facility] Address [address] [place] [address] Care Team Providers Care Clinical Services Manager Name Role Phone Adelaida Carrion NP Unavailable [phone] José Luis Roberts MD Primary Care Provider [phone] Miriam Suarez DO Unavailable [phone] Mathew Parra SENIOR PYTHON DEVELOPER Unavailable Unavailable Diana De Leon SENIOR PYTHON DEVELOPER Unavailable Unallocated, Noms Provider Primary Care Provi kellee Adelaida Carrion NP Unavailable [phone] José Luis Roberts MD Primary Care Provider [phone] Bong Rosado MA Unavailable [phone] Juany Leggett Unavailable Encounter Details Date Type Department Care Team (Late st Contact Info) Description 07/14/2023 Orders Only [facility] [address] [place] [address] Adelaida Carrion NP [address] [place] [address] Social History Tobacco Use Types [...] Never 05/18/2023 How often do you attend yazidi or protestant serv ices? Never 05/18/2023 Do you belong to any clubs o r organizations such as yazidi groups, unions, fraternal or athletic groups, or [...] Recorded Patient Health Questionnaire-2 Score 0 07/07/2023 [facility] - Occupational Stress [...] place to sleep or slept in a detention (including now)? No 05/18/2023 Comments Unknown Sex [...] Visit [facility] [address] [place] [address] Adelaida Carrion NP [address] [place] [address] documented as of this encounter Procedures Procedure Name Priority Date/Time Associated Diagnosis Comments XR CHEST 1 VIEW Routine 07/11/2023 9:09 AM EDT documented in this encounter Results * XR chest 1 view (07/11/2023 9:09 AM EDT) Anatomical Region Laterality Modality Chest Radiographic Nelda ging Adelaida Carrion METER/RELAY TECHNICIAN IMG XR PROCEDURES Final Result documented in this encounter Visit Diagnoses Not on filedocumented in this encounter Additional Health Concerns Assessment Noted Time PHQ-9 Depression Total Score: 8 05/18/19 24 5:00 PM EST documented as of this encounter Care Teams Clinical Services Manager Relationship Specialty Start Date End Date José Luis Roberts MD [address] [place] [address] PCP - General Family Medicine 05/18/23 01/26/24 Unallocated, Noms Provider, [address] [place] [address] PCP - General Family Medicine 01/27/24 02/01/24 José Luis Roberts MD [address] [place] [address] PCP - General Family Medicine 02/02/24 Adelaida Carrion NP Referring Physician Nurse Practitioner 10/14/22 Miriam Suarez DO [address] [place] [address] Referring Physician Neurology 06/29/23 Mathew Parra LPN Licensed Practical Nurse Family Medicine 07/23/23 Diana De Leon, ADRIAN [address] [place], [place] [address] Licensed Practical Nurse Family Medicine 12/18/2302/11 Adelaida Carrion NP [address] [place] [address] Nurse Practitioner Family Medicine 01/27/24 Bong Rosado, [place] [address] [place] [address] Family Medicine 02/12/24 Juany Leggett PA [address] [place] [address] Physician Manager Product Design Neurology 07/26/24 documented as of this encounter
--- OUTSIDE RECORDS SUMMARY | 2024-09-26 12:51 | XMS_ITS | Encounter Summary ---
Author Organization [facility] Address [address] [place] [address] Care Team Providers Care Inbound Sales Advisor Name Role Phone Miriam Suarez DO Unavailable [phone] Adelaida Carrion NP Unavailable [phone] José Luis Roberts MD Primary Care Provider Bong Rosado MA Unavailable [phone] Juany Leggett Unavailable Encounter Details Date Type Department Care Team (Late st Contact Info) Description 08/08/2024 Abstract [facility] [address] [place] [address] José Luis Roberts MD [address] [place] [address] Social History Tobacco Use Types Packs/Day Years [...] declined 08/16/2023 How often do you attend lutheran or latter day serv ices? Never 08/16/2023 Do you belong to any clubs o r organizations such as lutheran groups, unions, fraternal or athletic groups, or [...] Questionnaire-2 Score 2 09/21/2023 [facility] - Occupational Stress Questionnaire [...] place to sleep or slept in a prison (including now)? No 08/16/2023 Housing Stability Vital [...] Visit [facility] [address] [place] [address] Adelaida Carrion NP [address] [place] [address] documented as of this encounter Visit Diagnoses Not on filedocumented in this encounter Additional Health Concerns Assessment Noted Time PHQ-9 Depression Total Score: 8 05/18/19 24 5:00 PM EST documented as of this encounter Care Teams Inbound Sales Advisor Relationship Specialty Start Date End Date José Luis Roberts MD [address] [place] [address] PCP - General Family Medicine 02/02/24 Miriam Suarez DO [address] [place] [address] Referring Physician Neurology 06/29/23 Adelaida Carrion NP [address] [place] [address] Nurse Practitioner Family Medicine 01/27/24 Bong Rosado MA [address] [place] [address] Family Medicine 02/12/24 Juany Leggett PA [address] [place] [address] Physician Proctologist Neurology 07/26/24 documented as of this encounter
--- OUTSIDE RECORDS SUMMARY | 2024-09-26 12:51 | XMS_ITS | Encounter Summary ---
Author Organization [facility] Address [address] [place] [address] Care Team Providers Care Automatic Equipment Technician Name Role Phone Adelaida Carrion NP Unavailable [phone] José Luis Roberts MD Primary Care Provider [phone] José Luis Roberts MD Primary Care Provider [phone] Miriam Suarez DO Unavailable [phone] [place], Ardana BAND SALVAGER Unavailable Unavailable Aida Ardana BAND SALVAGER Unavailable Unavailable Diana De Leon BAND SALVAGER Unavailable Unallocated, Noms Provider Primary Care Provi kellee Adelaida Carrion NP Unavailable [phone] José Luis Roberts MD Primary Care Provider [phone] Bong Rosado MA Unavailable [phone] Juany Leggett Unavailable Encounter Details Date Type Department Care Team (Late st Contact Info) Description 04/09/2023 Abstract [facility] [address] [place] [address] Adelaida Carrion NP [address] [place] [address] Social History Tobacco Use Types Packs/Day Years [...] Office Visit [facility] [address] [place] [address] Adelaida Carrion, BRIANA [address] [place] [address] documented as of this encounter Visit Diagnoses Not on filedocumented in this encounter Care Teams Automatic Equipment Technician Relationship Specialty Start Date End Date José Luis Roberts MD PCP - General Family Medicine 10/14/22 05/17/23 José Luis Roberts MD [address] [place] [address] PCP - General Family Medicine 05/18/23 01/26/24 Unallocated, Johan Sierra MD [address] [place] [address] PCP - General Family Medicine 01/27/24 02/01/24 José Luis Roberts MD [address] [place] [address] PCP - General Family Medicine 02/02/24 Adelaida Carrion NP Referring Physician Nurse Practitioner 10/14/22 Miriam Suarez DO [address] [place], [place] [address] Referring Physician Neurology 06/29/23 Mathew Parra LPN Registered Nurse Family Medicine 07/07/23 07/08/23 Mathew Parra LPN Licensed Practical Nurse Family Medicine 07/23/23 Diana De Leon LPN [address] [place] [address] Licensed Practical Nurse Family Medicine 12/18/2302/11 Adelaida Carrion NP [address] [place] [address] Nurse Practitioner Family Medicine 01/27/24 Bong Rosado MA [address] [place] [address] Family Medicine 02/12/24 Juany Leggett PA [address] [place] [address] Physician Director Embalmer Neurology 07/26/24 documented as of this encounter
--- OUTSIDE RECORDS SUMMARY | 2024-09-26 12:51 | XMS_ITS | Encounter Summary ---
Author Organization [facility] Address [address] [place] [address] Care Team Providers Care Lung Gun Operator Name Role Phone Adelaida Carrion NP Unavailable [phone] José Luis Roberts MD Primary Care Provider [phone] José Luis Roberts MD Primary Care Provider [phone] Miriam Suarez DO Unavailable [phone] [place], Ardana GAME SHOW HOST Unavailable Unavailable Fran Parradana GAME SHOW HOST Unavailable Unavailable Diana De Leon GAME SHOW HOST Unavailable Unallocated, Noms Provider Primary Care Provi kellee Adelaida Carrion INDUSTRIAL CONVEYOR BELT REPAIRER Unavailable [phone] José Luis Roberts MD Primary Care Provider [phone] Bong Rosado MA Unavailable [phone] Juany Leggett Unavailable Encounter Details Date Type Department Care Team (Late st Contact Info) Description 01/09/2023 Abstract [facility] 112 [facility] [address] [place] [address] Travon Hines PA 112 [facility] 150 [place] [address] Social History Tobacco Use Types Packs/Day Years [...] Visit [facility] [address] [place] [address] Adelaida Carrion NP [address] [place] [address] documented as of this encounter Visit Diagnoses Not on filedocumented in this encounter Care Teams Lung Gun Operator Relationship Specialty Start Date End Date José Luis Roberts MD PCP - General Family Medicine 10/14/22 05/17/23 José Luis Roberts MD [address] [place] [address] PCP - General Family Medicine 05/18/23 01/26/24 Unallocated, Johan Sierra MD [address] [place] [address] PCP - General Family Medicine 01/27/24 02/01/24 José Luis Roberts MD [address] [place] [address] PCP - General Family Medicine 02/02/24 Adelaida Carrion NP Referring Physician Nurse Practitioner 10/14/22 Miriam Suarez DO [address] [place], [place] [address] Referring Physician Neurology 06/29/23 Mathew Parra LPN Registered Nurse Family Medicine 07/07/23 07/08/23 Mathew Parra LPN Licensed Practical Nurse Family Medicine 07/23/23 Diana De Leon LPN [address] [place] [address] Licensed Practical Nurse Family Medicine 12/18/2302/11 Adelaida Carrion NP [address] [place] [address] Nurse Practitioner Family Medicine 01/27/24 Bong Rosado, [place] [address] [place] [address] Family Medicine 02/12/24 Juany Leggett PA [address] [place] [address] Physician Environmental Restoration Planner Neurology 07/26/24 documented as of this encounter
--- OUTSIDE RECORDS SUMMARY | 2024-09-26 12:51 | XMS_ITS | Referral Summary ---
Author Organization [facility] Address [address] [place] [address] Care Team Providers Care Database Designer Name Role Phone Unavailable Primary Care Provider [...]
--- OUTSIDE RECORDS SUMMARY | 2024-09-26 12:51 | XMS_ITS | Encounter Summary ---
Author Organization [facility] Address [address] [place] [address] Care Team Providers Care Reed Polisher Name Role Phone Adelaida Carrion NP Unavailable [phone] José Luis Roberts MD Primary Care Provider [phone] Miriam Suarez DO Unavailable [phone] Mathew Parra HEAD LOFT WORKER Unavailable Unavailable Diana De Leon LPN Unavailable Unallocated, Noms Provider Primary Care Provi kellee Adelaida Carrion NP Unavailable [phone] José Luis Roberts MD Primary Care Provider [phone] Bong Rosado MA Unavailable [phone] Juany Leggett Unavailable Encounter Details Date [...] declined 08/16/2023 How often do you attend denominational or orthodox serv ices? Never 08/16/2023 Do you belong to any clubs o r organizations such as denominational groups, unions, fraternal or athletic groups, or [...] Recorded Patient Health Questionnaire-2 Score 2 09/21/2023 [facility] of Occupat ional Health - Occupational Stress [...] Visit [facility] [address] [place] [address] Adelaida Carrion NP [address] [place] [address] documented as of this encounter Procedures Procedure Name Priority Date/Time Associated Diagnosis Comments XR THORACIC SPINE 2 VIEWS 12/02/2023 2:53 PM EDT documented in this encounter Results * XR thoracic spine 2 views (12/02/2023 2:53 PM EDT) Anatomical Region Laterality Modality Spine, T-spine Radiographic Nelda ging 12/02/2023 2:53 PM EDT Narrative 12/02/2023 2:55 PM EDT [place] [id number] XRay Report Signed Patient: NASIM INGRAM MR#: [id number] : 1960 Acct:[id number] Age/Sex: 62 / F ADM Date: 12/02/23 Loc: RAD Attending Dr: Elizabeth Cano SENIOR INTEGRATION ARCHITECT Ordering Physician: Elizabeth Cano NP Date of Service: 12/02/23 Procedure(s): XR thoracic spine 2V Accession Number(s): [id number] cc: Adelaida Carrion SENIOR INTEGRATION ARCHITECT; Elizabeth Cano NP [address] [address] Patient Name: NASIM INGRAM MRN: [id number] date: 1960 Sex: F Assigned Patient Location: [facility] Current Patient Location: [facility] Accession/Order Number: [id number] Exam Date: 12/02/2023 14:10 Report Date: 12/02/2023 14:53 At the request of: ELIZABETH CANO Procedure: XR thoracic spine 2V EXAMINATION: XR [...] Signed By: 12/02/23 1455 DD/ 1453 TD/TT: Resident Services Director: Procedure Note Radiology, Radiologist, MD - 12/02/2023 [place] [address] XRay Report Signed Patient: NASIM INGRAM LMR#: [id number] : 1960cct:[id number] Age/Sex: 62 / FADM Date: 12/02/23 Loc: [facility] Attending Dr: Elizabeth Cano NP Ordering Physician: Elizabeth Cano NP Date of Service: 12/02/23 Procedure(s): XR thoracic spine 2V Accession Number(s): [id number] cc: Adelaida Carrion NP; Elizabeth Cano NP The [address] [address] Patient Name: NASIM INGRAM MRN: [id number] date: 1960 Sex: F Assigned Patient Location: [facility] Current Patient Location: [facility] Accession/Order Number: [id number] Exam Date: 12/02/2023 14:10 Report Date: 12/02/2023 14:53 At the request of: ELIZABETH CANO Procedure: XR thoracic spine 2V EXAMINATION: XR [...] M.D. Signed By:12/02/23 1455 DD/ 1453 TD/TT: Resident Services Director: us Generic External Data Provider IMG XR PROCEDURES Final Result documented in this encounter Visit Diagnoses Not on filedocumented in this encounter Additional Health Concerns Assessment Noted Time PHQ-9 Depression Total Score: 8 05/18/19 24 5:00 PM EST documented as of this encounter Care Teams Reed Polisher Relationship Specialty Start Date End Date José Luis Roberts MD [address] [place] [address] PCP - General Family Medicine 05/18/23 01/26/24 Unallocated, Noms ProviderMD [address] [place] [address] PCP - General Family Medicine 01/27/24 02/01/24 José Luis Roberts MD [address] [place] [address] PCP - General Family Medicine 02/02/24 Adelaida Carrion NP Referring Physician Nurse Practitioner 10/14/22 Miriam Suarez DO [address] [place] [address] Referring Physician Neurology 06/29/23 Mathew Parra LPN Licensed Practical Nurse Family Medicine 07/23/23 Diana De Leon LPN [address] [place] [address] Licensed Practical Nurse Family Medicine 12/18/2302/11 Adelaida Carrion NP [address] [place] [address] Nurse Practitioner Family Medicine 01/27/24 Bong Rosado, [place] [address] [place] [address] Family Medicine 02/12/24 Juany Leggett PA [address] [place], [place] [address] Physician Securities Lending Trader Neurology 07/26/24 documented as of this encounter
--- OUTSIDE RECORDS SUMMARY | 2024-09-26 12:51 | XMS_ITS | Encounter Summary ---
Author Organization [facility] Address [address] [place] [address] Care Team Providers Care Grain And Yeast Plants Supervisor Name Role Phone Adelaida Carrion NP Unavailable [phone] José Luis Roberts MD Primary Care Provider [phone] Miriam Suarez DO Unavailable [phone] Mathew Parra COLLEGE ARCHIVIST Unavailable Unavailable Diana De Leon LPN Unavailable Unallocated, Noms Provider Primary Care Provi kellee Adelaida Carrion NP Unavailable [phone] José Luis Roberts MD Primary Care Provider [phone] Bong Rosado MA Unavailable [phone] Juany Leggett Unavailable Encounter Details Date Type Department Care Team (Late st Contact Info) Description 12/02/2023 Orders Only [facility] [address] [place] [address] Bhakti Culp NP [address] [place] [address] Social History Tobacco Use Types [...] declined 08/16/2023 How often do you attend evangelical or hinduism serv ices? Never 08/16/2023 Do you belong to any clubs o r organizations such as evangelical groups, unions, fraternal or athletic groups, or [...] Office Visit [facility] [address] [place] [address] Adelaida Carrion NP [address] [place] [address] documented as of this encounter Procedures Procedure [...] Laterality Modality Spine, L-spine Radiographic Nelda ging us Bhakti Culp NP IMG XR PROCEDURES Final Result * XR thoracic spine 3 views (12/02/2023 4:01 PM EDT) Anatomical Region Laterality Modality Spine, T-spine Radiographic Nelda ging us Bhakti Culp NP IMG XR PROCEDURES Final Result documented in this encounter Visit Diagnoses Not on filedocumented in this encounter Additional Health Concerns Assessment Noted Time PHQ-9 Depression Total Score: 8 05/18/19 24 5:00 PM EST documented as of this encounter Care Teams Grain And Yeast Plants Supervisor Relationship Specialty Start Date End Date José Luis Roberts MD [address] [place] [address] PCP - General Family Medicine 05/18/23 01/26/24 Unallocated, Johan Sierra MD [address] [place] [address] PCP - General Family Medicine 01/27/24 02/01/24 José Luis Roberts MD [address] [place] [address] PCP - General Family Medicine 02/02/24 Adelaida Carrion NP Referring Physician Nurse Practitioner 10/14/22 Miriam Suarez DO [address] [place], [place] [address] Referring Physician Neurology 06/29/23 Mathew Parra LPN Licensed Practical Nurse Family Medicine 07/23/23 Diana De Leon LPN [address] [place] [address] Licensed Practical Nurse Family Medicine 12/18/2302/11 Adelaida Carrion NP [address] [place] [address] Nurse Practitioner Family Medicine 01/27/24 Bong Rosado MA [address] [place] [address] Family Medicine 02/12/24 Juany Leggett PA [address] [place] [address] Physician Education Rep Neurology 07/26/24 documented as of this encounter
--- OUTSIDE RECORDS SUMMARY | 2024-09-26 12:51 | XMS_ITS | Encounter Summary ---
Author Organization [facility] Address [address] [place] [address] Care Team Providers Care Cot Assembler Name Role Phone Adelaida Carrion NP Unavailable [phone] José Luis Roberts MD Primary Care Provider [phone] José Luis Roberts MD Primary Care Provider [phone] Miriam Suarez DO Unavailable [phone] [place], Ardana WIRELESS DEVELOPMENT MANAGER Unavailable Unavailable Aida Ardana WIRELESS DEVELOPMENT MANAGER Unavailable Unavailable Diana De Leon WIRELESS DEVELOPMENT MANAGER Unavailable Unallocated, Noms Provider Primary Care Provi kellee Adelaida Carrion DISTRICT COURT REPORTER Unavailable [phone] José Luis Roberts MD Primary Care Provider [phone] Bong Rosado MA Unavailable [phone] Juany Leggett Unavailable Encounter Details Date Type Department Care Team (Late st Contact Info) Description 04/08/2023 Orders Only [facility] [address] [place] [address] Ad[address] REPORTER [address] [place] [address] Social History Tobacco Use Types Packs/Day Years [...] Office Visit [facility] [address] [place] [address] Adelaida Carrion NP [address] [place] [address] documented as of this encounter Procedures Procedure Name Priority Date/Time Associated Diagnosis Comments MISCELLANEOUS LAB TEST Routine 03/23/2023 2:45 PM EST documented in this encounter Results * - Miscellaneous Test (03/23/2023 2:45 PM EST) Adelaida Carrion DISTRICT COURT REPORTER LAB BLOOD ORDERABLES Final Resu lt documented in this encounter Visit Diagnoses Not on filedocumented in this encounter Care Teams Cot Assembler Relationship Specialty Start Date End Date José Luis Roberts MD PCP - General Family Medicine 10/14/22 05/17/23 José Luis Roberts MD [address] [place] [address] PCP - General Family Medicine 05/18/23 01/26/24 Unallocated, Johan Sierra MD [address] [place] [address] PCP - General Family Medicine 01/27/24 02/01/24 Jos éLuis Roberts MD [address] [place] [address] PCP - General Family Medicine 02/02/24 Adelaida Carrion NP Referring Physician Nurse Practitioner 10/14/22 Miriam Suarez DO [address] [place], [place] [address] Referring Physician Neurology 06/29/23 Mathew Parra LPN Registered Nurse Family Medicine 07/07/23 07/08/23 Mathew Parra LPN Licensed Practical Nurse Family Medicine 07/23/23 Diana De Leon LPN [address] [place] [address] Licensed Practical Nurse Family Medicine 12/18/2302/11 Adelaida Carrion NP [address] [place] [address] Nurse Practitioner Family Medicine 01/27/24 Bong Rosado, [place] [address] [place] [address] Family Medicine 02/12/24 Juany Leggett PA [address] [place], [place] [address] Physician Commercial Diver Neurology 07/26/24 documented as of this encounter
--- OUTSIDE RECORDS SUMMARY | 2024-09-26 12:52 | XMS_ITS | Encounter Summary ---
Author Organization [facility] Address [address] [place] [address] Care Team Providers Care Powder Blender And Pourer Name Role Phone Miriam Suarez Unavailable [phone] Adelaida Carrion NP Unavailable [phone] José Luis Roberts MD Primary Care Provider Bong Rosado MA Unavailable [phone] Juany Leggett Unavailable Encounter Details Date Type Department Care Team (Late st Contact Info) Description 09/19/2024 Abstract [facility] [address] [place] [address] Adelaida Carrion, BRIANA [address] [place] [address] Social History Tobacco Use Types [...] declined 08/16/2023 How often do you attend faith or yarsanism serv ices? Never 08/16/2023 Do you belong to any clubs o r organizations such as faith groups, unions, fraternal or athletic groups, or [...] Recorded Patient Health Questionnaire-2 Score 2 09/21/2023 [facility] of Occupat [...] Visit [facility] [address] [place] [address] Adelaida Carrion NP [address] [place] [address] documented as of this encounter Visit Diagnoses Not on filedocumented in this encounter Additional Health Concerns Assessment Noted Time PHQ-9 Depression Total Score: 8 05/18/19 24 5:00 PM EST documented as of this encounter Care Teams Powder Blender And Pourer Relationship Specialty Start Date End Date José Luis Roberts MD [address] [place] [address] PCP - General Family Medicine 02/02/24 Miriam Suarez DO [address] [place] [address] Referring Physician Neurology 06/29/23 Adelaida Carrion NP [address] [place] [address] Nurse Practitioner Family Medicine 01/27/24 Bong Rosado MA [address] [place] [address] Family Medicine 02/12/24 Juany Leggett PA [address] [place] [address] Physician Java Lead Engineer Neurology 07/26/24 documented as of this encounter
--- NOTE | 2024-09-26 12:57 | CT_ITS ---
[address] [address] Patient Name: MICHELLE BE MRN: [id number] date: 1960 Sex: F Assigned Patient Location: [facility]MO Current Patient Location: RAD Accession/Order Number: [id number] Exam Date: 09/26/2024 16:58 Report Date: 09/26/2024 17:02 At the request of: EDUAR MOYER NP Procedure: CT lung screening low-dose CT lung screening low-dose 09/26/2024 1:26 PM SIGN AND SYMPTOMS: ^Former Cigarette Smoker TECHNIQUE: Multidetector CT axial slices of the chest were obtained without IV contrast. Multiplanar reformats were performed and viewed on a separate workstation and reviewed to further define anatomy and possible pathology. CT was performed with one or more of the following dose reduction techniques: Automated exposure control, adjustment of the mA and/or kV according to patient size, or use of iterative reconstruction technique. COMPARISON: None.. FINDINGS: Lower neck: Thyroid gland within normal limits, no supraclavicle adenopathy. Vessels: Atherosclerotic changes are noted in the coronary arteries and thoracic aorta.. Mediastinum and Xena: Within normal limits. Heart: Normal size. No pericardial effusion. Airways: Within normal limits Lungs: There is a 2 mm calcified granuloma which is partially pleural-based in the lingula. Pleura: Within normal limits. Chest Wall: Within normal limits. Upper Abdomen: Postsurgical changes are noted along the gastric lumen. There is evidence of prior cholecystectomy. Bones: Degenerative changes are present in the thoracic spine. CT/CT lung screening low-dose IMPRESSION: Lung RADS assessment category 1 (negative) There is a 2 mm calcified granuloma which is partially pleural-based in the lingula. Recommendation: Follow-up with low-dose chest CT in 12 months is recommended. Impression dictated by: Shaheed Guadalupe M.D. 09/26/2024 5:02 PM Dictation Location: [place] [address] Electronically authenticated by: [id number] Y Date: 09/26/2024 17:02
--- NOTE | 2024-09-26 12:57 | MM_ITS ---
Patient Name: MICHELLE BE MR#: [id number] : 1960 Exam Date: 09/26/2024 Ordering Doctor: LIVIER MOYER CNP RADIOLOGY REPORT PROCEDURE: MM TOMOSYNTHESIS SCREENING BI COMPARISON: MM TOMOSYNTHESIS SCREENING BI, 09/18/2023. MM TOMOSYNTHESIS SCREENING BI, 09/15/2022. MG [facility]M SCREEN 3D BHUMI CAD, 06/20/2021. MG [facility]AMM BHUMI SCRN W CAD DIG, 02/15/2013. INDICATIONS: Screening Calculator Name NCI Breast Cancer Risk Assessment Tool 5 Year Breast Cancer Risk 2.30% Lifetime Breast Cancer Risk 10.00% Personal Breast Cancer No Personal Ovarian Cancer No Treatments None Family Cancers None LOCATION: [facility] BREAST COMPOSITION: There are scattered areas of fibroglandular density. FINDINGS: DIAGNOSTIC CATEGORY 1--NEGATIVE. RIGHT BREAST: No significant suspicious finding. LEFT BREAST: No significant suspicious finding. RECOMMENDATIONS: ROUTINE MAMMOGRAM AND CLINICAL EVALUATION IN 12 MONTHS. PLEASE NOTE: A NORMAL MAMMOGRAM DOES NOT EXCLUDE THE POSSIBILITY OF BREAST CANCER. A CLINICALLY SUSPICIOUS PALPABLE LUMP SHOULD BE BIOPSIED. Dictated by: Olu Grover DO on 09/26/2024 at 16:41 Approved by: Olu Grover DO on 09/26/2024 at 16:42
== END 2024-09-26 12:49 | disposition home or self-care (01) ==
LOC: MAMMO 12:48
PROVIDERS: PCP Nurse Practitioner; Visit Provider Nurse Practitioner
DX: Z12.31 Encounter for screening mammogram for malignant neoplasm of breast (principal); Z87.891 Personal history of nicotine dependence; M25.511 Pain in right shoulder
CPT/HCPCS: 71271; 73030; 77063; 77067

== ENCOUNTER 2024-09-26 12:49 | Outpatient (OUT) | payer MEDICARE, SELFPAY ==
--- NOTE | 2024-09-26 12:59 | XR_ITS ---
The [address] [address] Patient Name: MICHELLE BE MRN: [id number] date: 1960 Sex: F Assigned Patient Location: [facility] Current Patient Location: [facility] Accession/Order Number: [id number] Exam Date: 09/26/2024 13:34 Report Date: 09/26/2024 13:35 At the request of: ELIZABETH CANO NP Procedure: XR shoulder RT min 2V XR shoulder RT min 2V 09/26/2024 1:29 PM SIGNS AND SYMPTOMS: ^Right Shoulder Pain PROTOCOL: Frontal, Grashey, and scapular Y views of the right shoulder COMPARISON: 05/09/2022 FINDINGS: Mild hypertrophic changes are noted in the acromioclavicular joint. There is mild narrowing of the glenohumeral joint. There is no fracture or dislocation. Visualized right hemithorax is grossly intact. Subcortical sclerosis is noted along the greater tuberosity of the humeral head suspicious for underlying rotator cuff pathology. This is similar to the prior exam. Atherosclerotic changes are noted in the thoracic aorta. XR/XR shoulder RT min 2V IMPRESSION: Degenerative changes are redemonstrated in the right shoulder with findings suggesting underlying rotator cuff pathology. No fracture or dislocation. Impression dictated by: Shaheed Guadalupe M.D. 09/26/2024 1:35 PM Dictation Location: [place] [address] Electronically authenticated by: [id number] Y Date: 09/26/2024 13:35
== END 2024-09-26 12:50 | disposition home or self-care (01) ==
LOC: RAD 12:50
PROVIDERS: PCP Nurse Practitioner; Visit Provider Nurse Practitioner
DX: M25.511 Pain in right shoulder (principal)
CPT/HCPCS: 73030

== ENCOUNTER 2024-09-29 09:33 | Outpatient (OUT) | payer MEDICARE, SELFPAY ==
--- OUTSIDE RECORDS SUMMARY | 2020-04-11 07:00 | XMS_ITS | Continuity of Care Document ---
Author Organization [facility] Address [address] [place] [address] [place] [address] Phone Care Team Providers Care Insurance Representative Name Role Phone Kayce Chanel CNP Unavailable [...] Copied on Encounter OFFICE/OUTPAT IENT VISIT, EST [facility], [address] [place] [address], [id number], [place] tel:[phone] [facility] No Information Darío Devries. [address] [place] [address], [id number], [place]. tel:[phone] Referring Provider: Kayce Chanel, [address] [place] [address] 222, [place], [address] . tel:[phone] [facility], [address] [place] [address] [address], [place], [place], [address], [place] tel:[phone] [facility] No Information Darío Devries. [address], [place], [place], [address], [place]. tel:[phone] Referring Provider: Kayce Chanel, [address] [place] [address] [address], [place], [address] . tel:[phone] [facility], [address] [place] [address] [address], [place], [place], [address], [place] tel:[phone] [facility] No Information Darío Devries. [facility] [address] [facility] [address], [place], [place], [address], [place]. tel:[phone] Referring Provider: Kayce Chanel, [address] [place] [address] [address], [place], [address] . tel:[phone] [facility], [address] [place] [address] [address], [place], [place], [address], [place] tel:[phone] [facility] No Information Darío Devries. [facility] [address], [place], [place], [address], [place]. tel:[phone] Referring Provider: Kayce Chanel, [facility] [address], [place], [address] . tel:[phone] [facility], [address] [place] [address] [address], [place], [place], [address], [place] tel:[phone] [facility] No Information Darío Devries. [address] [place] [address] [address], [facility] [place], [address], [place]. tel:[phone] Referring Provider: Kayce Chanel, [address] [place] [address] [address], [place], [address] . tel:[phone] [facility], [address] [place] [address] [address], [place], [place], [address], [place] tel:[phone] [facility] No Information Yulia Anguiano. [address] [facility] [address], [place], [place], [address], [place]. tel:[phone] Referring Provider: Silvio Acevedo, [address] [facility] [address], [place], [address] . tel:[phone] OFFICE/OUTPAT IENT VISIT, [facility], [address] [place] [address] [address], [place], [place], [address], [place] tel:[phone] [facility] No Information Yulia Anguiano. [address] [facility] [address], [place], [place], [address], [place]. tel:[phone] Referring Provider: Silvio Acevedo, [address] [facility] [address], [place], [address] . tel:[phone] [facility], [address] [place] [address] [address], [place], [place], [address], [place] tel:[phone] [facility] No Information No Information OFFICE/OUTPAT IENT VISIT, [employer] [facility], [address] [place] [address] [address], [place], [place], [address], [place] tel:[phone] [facility] No Information Yulia Anguiano. [address] [facility] [address], [place], [place], [address], [place]. tel:[phone] Referring Provider: Silvio Acevedo, [address] [facility] [address], [place], [address] . tel:[phone] OFFICE/OUTPAT IENT VISIT, [employer] [facility], [address] [place] [address] [address], [place], [place], [address], [place] tel:[phone] [facility] No Information Yulia Anguiano. [address] [facility] [address], [place], [place], [address], [place]. tel:[phone] Referring Provider: Silvio Acevedo, [address] [facility] [address], [place], [address] . tel:[phone] OFFICE/OUTPAT IENT VISIT, [facility], [address] [facility] [address], [place], [place], [address], [place] tel:[phone] [facility] No Information Yulia Anguiano. [address] [place] [address] [address], [place], [place], [address], [place]. tel:[phone] Referring Provider: Silvio Acevedo, [address] [place] [address] [address], [place], [address] . tel:[phone] Family History Family Member Type Diagnosis Age At Onset No Information Payers Payer name Insurance type Covered constitution party ID Authorgerard thakur(s) [facility] Medicare [employer] 16 [id number] Social History Type Description Quantity Date Captured [...]
--- OUTSIDE RECORDS SUMMARY | 2024-09-29 09:36 | XMS_ITS | Encounter Summary ---
Author Organization [facility] Address [address] [place] [address] Care Team Providers Care Mediator Name Role Phone Adelaida Carrion NP Unavailable [phone] José Luis Roberts MD Primary Care Provider [phone] Miriam Suarez DO Unavailable [phone] Mathew Parra TUMBLING AND ROLLING SUPERVISOR Unavailable Unavailable Diana De Leon LPN Unavailable Unallocated, Noms Provider Primary Care Provi kellee Adelaida Carrion NP Unavailable [phone] José Luis Roberts MD Primary Care Provider [phone] Bong Rosado MA Unavailable [phone] Juany Leggett Unavailable Encounter Details Date Type Department Care Team (Late st Contact Info) Description 09/02/2023 Orders Only [facility] [address] [place] [address] Shaikh Alberto MD [address] [place] [address] Social History Tobacco Use Types [...] How often do you attend caodaism or yazdanism serv ices? Never 08/16/2023 Do you belong [...] Recorded Patient Health Questionnaire-2 Score 0 08/17/2023 [facility] of Occupat ional Health - Occupational Stress [...] Visit [facility] [address] [place] [address] Adelaida Carrion, ENTERPRISE INTEGRATION ARCHITECT [address] [place] [address] documented as of this encounter Procedures Procedure [...] documented as of this encounter Care Teams Mediator Relationship Specialty Start Date End Date José Luis Roberts MD [address] [place] [address] PCP - General Family Medicine 05/18/23 01/26/24 Unallocated, Johan Sierra MD [facility] [place] [address] PCP - General Family Medicine 01/27/24 02/01/24 José Luis Roberts MD [address] [place] [address] PCP - General Family Medicine 02/02/24 Adelaida Carrion, BRIANA Referring Physician Nurse Practitioner 10/14/22 Miriam Suarez DO [address] [place], [place] [address] Referring Physician Neurology 06/29/23 Mathew Parra LPN Licensed Practical Nurse Family Medicine 07/23/23 Diana De Leon LPN [address] [place] [address] Licensed Practical Nurse Family Medicine 12/18/2302/11 Adelaida Carrion NP [address] [place] [address] Nurse Practitioner Family Medicine 01/27/24 Bong Rosado, [place] [address] [place] [address] Family Medicine 02/12/24 Juany Leggett PA [address] [place] [address] Physician Tile Setter Apprentice Neurology 07/26/24 documented as of this encounter
--- OUTSIDE RECORDS SUMMARY | 2024-09-29 09:36 | XMS_ITS ---
Author Organization [facility] Address [address] [place] [address] Care Team Providers Care Windows Vmware Administrator Name Role Phone Miriam Suarez DO Unavailable [phone] Adelaida Carrion NP Unavailable [phone] José Luis Roberts MD Primary Care Provider [phone] Bong Rosado MA Unavailable [phone] Juany Leggett Unavailable Chronic Care Management [...] Name Relationship Phone Bong Rosado MA(Responsible Staff) [phone] Continued Care and Services Coordination
--- OUTSIDE RECORDS SUMMARY | 2024-09-29 09:36 | XMS_ITS | Encounter Summary ---
Author Organization [facility] Address [address] [place] [address] Care Team Providers Care Lockstitch Front Edge Tape Sewer Name Role Phone Adelaida Carrion NP Unavailable [phone] José Luis Roberts MD Primary Care Provider [phone] Miriam Suarez DO Unavailable [phone] Mathew Parra TECHNICAL ADVISOR Unavailable Unavailable Diana De Leon TECHNICAL ADVISOR Unavailable Unallocated, Noms Provider Primary Care Provi kellee Adelaida Carrion NP Unavailable [phone] José Luis Roberts MD Primary Care Provider [phone] Bong Rosado MA Unavailable [phone] Juany Leggett Unavailable Encounter Details Date Type Department Care Team (Late st Contact Info) Description 09/21/2023 Orders Only [facility] [address] [place] [address] Adelaida Carrion NP [address] [facility] [place] [address] Social History Tobacco Use Types [...] How often do you attend christianity or bahai serv ices? Never 08/16/2023 Do you belong [...] Recorded Patient Health Questionnaire-2 Score 2 09/21/2023 [facility] ional Health - Occupational [...] [facility] [address] [place] [address] Adelaida Carrion NP [address] [place] [address] documented as of this encounter Procedures Procedure [...] documented as of this encounter Care Teams Lockstitch Front Edge Tape Sewer Relationship Specialty Start Date End Date José Luis Roberts MD [address] [place] [address] PCP - General Family Medicine 05/18/23 01/26/24 Unallocated, Johan Sierra MD [address] [place] [address] PCP - General Family Medicine 01/27/24 02/01/24 José Luis Roberts MD [address] [place] [address] PCP - General Family Medicine 02/02/24 Adelaida Carrion NP Referring Physician Nurse Practitioner 10/14/22 Miriam Suarez DO [address] [id number] Referring Physician Neurology 06/29/23 Mathew Parra LPN Licensed Practical Nurse Family Medicine 07/23/23 Diana De Leon LPN [address] [place] [address] Licensed Practical Nurse Family Medicine 12/18/2302/11 Adelaida Carrion NP [address] [place] [address] Nurse Practitioner Family Medicine 01/27/24 Bong Rosado, [place] [address] [place] [address] Family Medicine 02/12/24 Juany Leggett PA [address] [place], [place] [address] Physician Survey Crew Chief Neurology 07/26/24 documented as of this encounter
--- OUTSIDE RECORDS SUMMARY | 2024-09-29 09:36 | XMS_ITS | Encounter Summary ---
Author Organization [facility] Address [address] [place] [address] Care Team Providers Care Line Service Person Name Role Phone Miriam Suarez DO Unavailable [phone] Adelaida Carrion NP Unavailable [phone] José Luis Roberts MD Primary Care Provider Bong Rosado MA Unavailable [phone] Juany Leggett Unavailable Encounter Details Date Type Department Care Team (Late st Contact Info) Description 08/08/2024 Abstract [facility] [address] [place] [address] José Luis Roberts MD [address] [place] [address] Social History Tobacco Use Types Packs/Day Years [...] How often do you attend quaker or hindu serv ices? Never 08/16/2023 Do [...] Recorded Patient Health Questionnaire-2 Score 2 09/21/2023 [facility] - [facility]ational Stress Questionnaire [...] slept in a detention (including now)? No 08/16/2023 Housing Stability Vital [...] [facility] [address] [place] [address] Adelaida Carrion NP [address] [place] [address] documented as of this encounter Visit Diagnoses Not on filedocumented in this encounter Additional Health Concerns Assessment Noted Time PHQ-9 Depression Total Score: 8 05/18/19 24 5:00 PM EST documented as of this encounter Care Teams Line Service Person Relationship Specialty Start Date End Date José Luis Roberts MD [address] [place] [address] PCP - General Family Medicine 02/02/24 Miriam Suarez DO [address] [place] [address] Referring Physician Neurology 06/29/23 Adelaida Carrion NP [address] [place] [address] Nurse Practitioner Family Medicine 01/27/24 Bong Rosado MA [address] [place] [address] Family Medicine 02/12/24 Juany Leggett PA [address] [place] [address] Physician Senior Salesforce Developer Neurology 07/26/24 documented as of this encounter
--- OUTSIDE RECORDS SUMMARY | 2024-09-29 09:36 | XMS_ITS | Encounter Summary ---
Author Organization [facility] Address [address] [place] [address] Care Team Providers Care Mechanical Maintenance Worker Name Role Phone Miriam Suarez DO Unavailable [phone] Adelaida Carrion NP Unavailable [phone] José Luis Roberts MD Primary Care Provider Bong Rosado MA Unavailable [phone] Juany Leggett Unavailable Reason for Visit * Reason Onset Date Comments Med Refill 07/08/2024 Encounter Details Date Type Department Care Team (Late st Contact Info) Description 07/08/2024 Refill [facility] [address] [place] [address] José Luis Roberts MD [address] [place] [address] Social History Tobacco Use Types [...] How often do you attend restorationism or religion serv ices? Never 08/16/2023 Do [...] Recorded Patient Health Questionnaire-2 Score 2 09/21/2023 [facility] Occupat ional Health - Occupational Stress [...] LU - 07/19/2024 9:59 AM EDT Text Peoplesoft Fscm Developer Hi, this is Nasim Ingram. My date of versus 9162 was calling about the dilkon that I requested to be called in yesterday. There is nothing at drug more yet. Thank you. * Telephone Encounter - VALERIE LU - 07/18/2024 10:57 AM EDT Text Peoples[employer] Fscm Developer Adelaida Fraser, this is Nasim Ingram. Surendra [phone] need to have you call in a prescription for [place] to the pharmacy at [facility], Dr. Ricci, other yeast infection, thank you. * Telephone Encounter - Adelaida Carrion NP - 07/13/2024 9:04 PM EDT Ordered by pain mgmt documented in this encounter Plan of Treatment Upcoming Encounters Date Type Department Care Team (Late st Contact Info) Description 11/14/2024 9:40 AM EDT Office Visit [facility] [address] [place] [address] Adelaida Carrion NP [address] [place] [address] documented as of this encounter Visit Diagnoses Not on filedocumented in this encounter Additional Health Concerns Assessment Noted Time PHQ-9 Depression Total Score: 8 05/18/19 24 5:00 PM EST documented as of this encounter Care Teams Mechanical Maintenance Worker Relationship Specialty Start Date End Date José Luis Roberts MD [address] [place] [address] PCP - General Family Medicine 02/02/24 Miriam Suarez DO [address] [place] [address] Referring Physician Neurology 06/29/23 Adelaida Carrion NP [address] [place] [address] Nurse Practitioner Family Medicine 01/27/24 Bong Rosado MA [address] [place] [address] Family Medicine 02/12/24 Juany Leggett PA [address] [place] [address] Physician Percussion Instrument Repairer Neurology 07/26/24 documented as of this encounter
--- OUTSIDE RECORDS SUMMARY | 2024-09-29 09:36 | XMS_ITS | Encounter Summary ---
Author Organization [facility] Address [address] [place] [address] Care Team Providers Care Tank Builder Helper Name Role Phone Miriam Suarez DO Unavailable [phone] Adelaida Carrion NP Unavailable [phone] José Luis Roberts MD Primary Care Provider Bong Rosado MA Unavailable [phone] Juany Leggett Unavailable Encounter Details Date Type Department Care Team (Late st Contact Info) Description 03/21/2024 Orders Only [facility] [address] [place] [address] Adelaida Carrion, BRIANA [address] [place] [address] Social History Tobacco Use Types Packs/Day Years [...] How often do you attend catholic or latter-day serv ices? Never 08/16/2023 Do you belong to any clubs o r organizations such as catholic groups, unions, fraternal or athletic groups, or [...] Patient Health Questionnaire-2 Score 2 09/21/2023 [facility] - Occupational Stress Questionnaire [...] Visit [facility] [address] [place] [address] Adelaida Carrion NP [address] [place] [address] documented as of this encounter Procedures Procedure [...] * SCANNED LABS (03/21/2024 2:30 PM EST) [facility] LAB CHG PERFORMABLES Final Res ult * SCANNED LABS (03/21/2024 2:21 PM EST) Adelaida Carrion NP LAB CHG PERFORMABLES Final Resu lt * ECG 12 lead (03/21/2024 2:19 PM EST) Result [facility] ECG ORDERABLES Final Result * ECG 12 lead (03/21/2024 2:15 PM EST) Result [facility] ECG ORDERABLES Final Result * ECG 12 lead (03/21/2024 2:10 PM EST) Clayton Galvan MD ECG ORDERABLES Final Result * ECG 12 lead (03/21/2024 2:07 PM EST) Rochelle Keene MD ECG ORDERABLES Final Result * Complete echocardiogram dobutamine stress test (03/21/2024 2:03 PM EST) Anatomical Region Laterality Modality Ultrasound Adelaida Aichholz LITHOGRAPH PRESS FEEDER CV ECHO PROCEDURES Final Result documented in this encounter Visit Diagnoses Not on filedocumented in this encounter Additional Health Concerns Assessment Noted Time PHQ-9 Depression Total Score: 8 05/18/19 24 5:00 PM EST documented as of this encounter Care Teams Tank Builder Helper Relationship Specialty Start Date End Date José Luis Roberts MD [address] [place] [address] PCP - General Family Medicine 02/02/24 Miriam Suarez DO [address] [place], [place] [address] Referring Physician Neurology 06/29/23 Adelaida Carrion NP [address] [place] [address] Nurse Practitioner Family Medicine 01/27/24 Bong Rosado, [place] [address] [place] [address] Family Medicine 02/12/24 Juany Leggett PA [address] [place], [place] [address] Physician Station Cook Neurology 07/26/24 documented as of this encounter
--- OUTSIDE RECORDS SUMMARY | 2024-09-29 09:36 | XMS_ITS | Encounter Summary ---
Author Organization [facility] Address [address] [place] [address] Care Team Providers Care Reclamation Engineer Name Role Phone Miriam Suarez DO Unavailable [phone] Adelaida Carrion NP Unavailable [phone] José Luis Roberts MD Primary Care Provider [phone] Bong Rosado MA Unavailable [phone] Juany Leggett Unavailable Reason for Visit * Reason Onset Date Comments Med Refill 04/12/2024 Encounter Details Date Type Department Care Team (Late st Contact Info) Description 04/12/2024 Refill [facility] [address] [place] [address] José Luis Roberts MD [address] [place] [address] Social History Tobacco Use Types Packs/Day Years [...] How often do you attend evangelical or jehovah's witness serv ices? Never 08/16/2023 [...] Patient Health Questionnaire-2 Score 2 09/21/2023 [facility] Occupat ional Health - Occupational Stress [...] [facility] [address] [place] [address] Adelaida Carrion NP [address] [place] [address] documented as of this encounter Visit Diagnoses Not on filedocumented in this encounter Additional Health Concerns Assessment Noted Time PHQ-9 Depression Total Score: 8 05/18/19 24 5:00 PM EST documented as of this encounter Care Teams Reclamation Engineer Relationship Specialty Start Date End Date José Luis Roberts MD [address] [place] [address] PCP - General Family Medicine 02/02/24 Miriam Suarez DO [address] [place] [address] Referring Physician Neurology 06/29/23 Adelaida Carrion NP [address] [place] [address] Nurse Practitioner Family Medicine 01/27/24 Bong Rosado MA [address] [place] [address] Family Medicine 02/12/24 Juany Leggett PA [address] [place] [address] Physician Chief Deputy Sheriff Neurology 07/26/24 documented as of this encounter
--- OUTSIDE RECORDS SUMMARY | 2024-09-29 09:36 | XMS_ITS | Encounter Summary ---
Author Organization [facility] Address [address] [place] [address] Care Team Providers Care Tractor Trailer Truck Driver Name Role Phone Adelaida Carrion NP Unavailable [phone] José Luis Roberts MD Primary Care Provider [phone] Miriam Suarez DO Unavailable [phone] Mathew Parra INVOICING SPECIALIST Unavailable Unavailable Diana De Leon LPN Unavailable Unallocated, Noms Provider Primary Care Provi kellee Adeliada Carrion NP Unavailable [phone] José Luis Roberts MD Primary Care Provider [phone] Bong Rosado MA Unavailable [phone] Juany Leggett Unavailable Encounter Details Date Type Department Care Team (Late st Contact Info) Description 09/18/2023 Clinisync Result Encounter [facility] External Department Unsolicited dAelaida Carrion NP [address] [place] [address] Social History Tobacco Use Types Packs/Day Years [...] How often do you attend episcopalian or anabaptism serv ices? Never 08/16/2023 Do you belong [...] Recorded Patient Health Questionnaire-2 Score 2 09/21/2023 [facility] ional Health - Occupational [...] Office Visit [facility] [address] [place] [address] Adelaida Carrion NP [address] [place] [address] documented as of this encounter Procedures Procedure Name Priority Date/Time Associated Diagnosis Comments MM TOMOSYNTHESIS SCREENING BI 09/18/2023 1:42 PM EDT documented in this encounter Results * MM TOMOSYNTHESIS SCREENING BI (09/18/2023 1:42 PM EDT) Anatomical Region Laterality Modality Other 09/18/2023 1:42 PM EDT Narrative 09/18/2023 1:43 PM EDT The [address] [address] Mammography Report Signed Patient: NASIM INGRAM MR#: [id number] : 1960 Acct:[id number] Age/Sex: 62 / F ADM Date: 09/18/23 Loc: MAMMO Attending Dr: Adelaida Carrion MUSICAL INSTRUMENT MECHANIC Ordering Physician: Aichholz,Adelaida MUSICAL INSTRUMENT MECHANIC Results: Date of Service: 09/18/23 Follow Up: Procedure(s): MM tomosynthesis screening BI Accession Number(s): [id number] cc: Adelaida Carrion NP Patient Name: NASIM INGRAM MR#: [id number] : 1960 Exam Date: 09/18/2023 Ordering Doctor: [...] Treatments None Family Cancers None LOCATION: [facility] BREAST COMPOSITION: There are scattered areas [...] Signed By: 09/18/23 1343 DD/ 1342 TD/TT: Brine Well Operator: Procedure Note Radiology, Radiologist, - 09/18/2023 [place] [address] Mammography Report Signed Patient: NASIM INGRAM LMR#: [id number] : 1960cct:[id number] Age/Sex: 62 / FADM Date: 09/18/23 Loc: MAMMO Attending Dr: Adelaida Carrion NP Ordering Physician: Adelaida Carrion NPResults: Date of Service: 09/18/23Follow Up: Procedure(s): MM tomosynthesis screening BI Accession Number(s): [id number] cc: Adelaida Carrion NP Patient Name: NASIM INGRAM MR#: [id number] : 1960 Exam Date: 09/18/2023 Ordering Doctor: LIVIER Carrion CNP RADIOLOGY REPORT PROCEDURE: MM TOMOSYNTHESIS SCREENING BI COMPARISON: MM TOMOSYNTHESIS SCREENING BI, 09/15/2022. MG MAMM [id number] BHUMI CAD, 06/20/2021. INDICATIONS: Screening Calculator Name NCI Breast Cancer Risk Assessment Tool 5 Year Breast Cancer Risk 2.20% Lifetime Breast Cancer Risk 10.30% Personal Breast Cancer No Personal Ovarian Cancer No Treatments None Family Cancers None LOCATION: [facility] BREAST COMPOSITION: There are scattered areas [...] M.D. Signed By:09/18/23 1343 DD/ 1342 TD/TT: Brine Well Operator: us Adelaida Carrion NP [facility] Final Result documented in this encounter Visit Diagnoses Not on filedocumented in this encounter Additional Health Concerns Assessment Noted Time PHQ-9 Depression Total Score: 8 05/18/19 24 5:00 PM EST documented as of this encounter Care Teams Tractor Trailer Truck Driver Relationship Specialty Start Date End Date José Luis Roberts MD [address] [place] [address] PCP - General Family Medicine 05/18/23 01/26/24 Unallocated, Johan Sierra MD [address] [place] [address] PCP - General Family Medicine 01/27/24 02/01/24 José Luis Roberts MD [address] [place] [address] PCP - General Family Medicine 02/02/24 Adelaida Carrion NP Referring Physician Nurse Practitioner 10/14/22 Miriam Suarez DO [address] [place], [place] [address] Referring Physician Neurology 06/29/23 Mathew Parra LPN Licensed Practical Nurse Family Medicine 07/23/23 Diana De Leon LPN [address] [place] [address] Licensed Practical Nurse Family Medicine 12/18/2302/11 Adelaida Carrion NP [address] [place] [address] Nurse Practitioner Family Medicine 01/27/24 Bong Rosado MA [address] [place] [address] Family Medicine 02/12/24 Juany Leggett PA [address] [place], [place] [address] Physician Patient Admitting Representative Neurology 07/26/24 documented as of this encounter
--- OUTSIDE RECORDS SUMMARY | 2024-09-29 09:36 | XMS_ITS | Encounter Summary ---
Author Organization [facility] Address [address] [place] [address] Care Team Providers Care Battery Starter Name Role Phone Daniela Miriam GRAHAM Unavailable [phone] Adelaida Carrion NP Unavailable [phone] José Luis Roberts MD Primary Care Provider Bong Rosado MA Unavailable [phone] Juany Leggett Unavailable Encounter Details Date Type Department Care Team (Late st Contact Info) Description 09/26/2024 Clinisync Result Encounter [facility] Unsolicited Adelaida Carrion, BRIANA [address] [place] [id number] Social History Tobacco Use Types Packs/Day Years [...] How often do you attend sikh or hinduism serv ices? Never 08/16/2023 Do [...] Patient Health Questionnaire-2 Score 2 09/21/2023 [facility] - Occupational [...] Visit [facility] [address] [place] [address] Adelaida Carrion NP [address] [place] [address] documented as of this encounter Procedures Procedure Name Priority Date/Time Associated Diagnosis Comments CT LUNG SCREENING LOW DOSE 09/26/2024 5:02 PM EDT documented in this encounter Results * CT LUNG SCREENING LOW DOSE (09/26/2024 5:02 PM EDT) Anatomical Region Laterality Modality Other 09/26/2024 5:02 PM EDT Narrative 09/26/2024 5:04 PM EDT The [address] [address] [address] Scan Report Signed Patient: NASIM INGRAM MR#: [id number] : 1960 Acct:[id number] Age/Sex: 63 / F ADM Date: 09/26/24 Loc: MAMMO Attending Dr: Adelaida Carrion NP Ordering Physician: Adelaida Carrion NP Date of Service: 09/26/24 Procedure(s): CT lung screening low-dose Accession Number(s): [id number] cc: Adelaida Carrion NP The [address] [address] Patient Name: NASIM INGRAM MRN: [id number] date: 1960 Sex: F [facility]igned [facility] Current Patient Location: [facility] Accession/Order Number: [id number] Exam Date: 09/26/2024 16:58 Report Date: 09/26/2024 17:02 At the request of: ADELAIDA CARRION NP Procedure: CT lung screening low-dose CT lung screening low-dose 09/26/2024 1:26 PM SIGN AND SYMPTOMS: Former Cigarette Smoker TECHNIQUE: Multidetector CT axial slices of the chest were obtained without IV contrast. Multiplanar reformats were performed and viewed on a separate workstation and reviewed to further define anatomy and possible pathology. CT was performed with one or more of the following dose reduction techniques: Automated exposure control, adjustment of the mA and/or kV according to patient size, or use of iterative reconstruction technique. COMPARISON: None.. FINDINGS: Lower neck: Thyroid gland within normal limits, no supraclavicle adenopathy. Vessels: Atherosclerotic changes are noted in the coronary arteries and thoracic aorta.. Mediastinum and Xena: Within normal limits. Heart: Normal size. No pericardial effusion. Airways: Within normal limits Lungs: There is a 2 mm calcified granuloma which is partially pleural-based in the lingula. Pleura: Within normal limits. Chest Wall: Within normal limits. Upper Abdomen: Postsurgical changes are noted along the gastric lumen. There is evidence of prior cholecystectomy. Bones: Degenerative changes are present in the thoracic spine. CT/CT lung screening low-dose IMPRESSION: Lung RADS assessment category 1 (negative) There is a 2 mm calcified granuloma which is partially pleural-based in the lingula. Recommendation: Follow-up with low-dose chest CT in 12 months is recommended. Impression dictated by: Shaheed Guadalupe M.D. 09/26/2024 5:02 PM Dictation Location: [place] [address] Electronically authenticated by: [id number] Y Date: 09/26/2024 17:02 Dictated By: Shaheed Guadalupe M.D. Signed By: 09/26/241703 DD/ 01 TD/TT: Cottage Cheese Maker: Procedure Note Radiology, Radiologist, - 09/26/2024 [place] [address] CT Scan Report Signed Patient: NASIM INGRAM R#: [id number] : 1960cct:[id number] Age/Sex: 63 / FADM Date: 09/26/24 Loc: MAMMO Attending Dr: Adelaida Carrion NP Ordering Physician: Adelaida Carrion NP Date of Service: 09/26/24 Procedure(s): CT lung screening low-dose Accession Number(s): [id number] cc: Adelaida Carrion NP The [address] [address] Patient Name: NASIM INGRAM MRN: [facility]:[id number] date: 1960 Sex: F Assigned Patient Location: MAMMO Current Patient Location: RAD Accession/Order Number: [id number] Exam Date: 09/26/2024 16:58 Report Date: 09/26/2024 17:02 At the request of: ADELAIDA CARRION NP Procedure: CT lung screening low-dose CT lung screening low-dose 09/26/2024 1:26 PM SIGN AND SYMPTOMS: Former Cigarette Smoker TECHNIQUE: Multidetector CT axial slices of the chest were obtainedwithout IV contrast. Multiplanar reformats were performed and viewed on a separate workstation and reviewed to further define anatomy and possible pathology.CT was performed with one or more of the following dose reduction techniques: Automated exposure control, adjustment of the mA and/or kV according to patient size, or use of iterative reconstruction technique. COMPARISON: None.. FINDINGS: Lower neck: Thyroid gland within normal limits, no supraclavicleadenopathy. Vessels: Atherosclerotic changes are noted in the coronary arteries and thoracic aorta.. Mediastinum and Xena: Within normal limits. Heart: Normal size. No pericardial effusion. Airways: Within normal limits Lungs: There is a 2 mm calcified granuloma which is partiallypleural-based in the lingula. Pleura: Within normal limits. Chest Wall: Within normal limits. Upper Abdomen: Postsurgical changes are noted along the gastric lumen.There is evidence of prior cholecystectomy. Bones: Degenerative changes are present in the thoracic spine. CT/CT lung screening low-dose IMPRESSION: Lung RADS assessment category 1 (negative) There is a 2 mm calcified granuloma which is partially pleural-based inthe lingula. Recommendation: Follow-up with low-dose chest CT in 12 months isrecommended. Impression dictated by: Shaheed Guadalupe M.D. 09/26/2024 5:02 PM Dictation Location: [place] [address] Electronically authenticated by: [id number] Y Date: 7:02 Dictated By: Shaheed Guadalupe M.D. Signed By:09/26/24 1704 DD/ 01 TD/TT: Cottage Cheese Maker: us Adelaida Carrion NP [facility] Final Result documented in this encounter Visit Diagnoses Not on filedocumented in this encounter Additional Health Concerns Assessment Noted Time PHQ-9 Depression Total Score: 8 05/18/19 24 5:00 PM EST documented as of this encounter Care Teams Battery Starter Relationship Specialty Start Date End Date José Luis Roberts MD [address] [place] [id number] PCP - General Family Medicine 02/02/24 Miriam Suarez DO [address] [place] [address] Referring Physician Neurology 06/29/23 Adelaida Carrion NP [address] [place] [phone] Nurse Practitioner Family Medicine 01/27/24 Bong Rosado, [place] [address] [place] [address] Family Medicine 02/12/24 Juany Leggett PA [address] [place] [address] Physician Licensed Nuclear Operator Neurology 07/26/24 documented as of this encounter
--- OUTSIDE RECORDS SUMMARY | 2024-09-29 09:36 | XMS_ITS | Clinical Summary ---
Author Organization [facility] Healthcare Address [address] [place] [address] Care Team Providers Care Clinical Research Tech Name Role Phone Miriam Suarez DO Unavailable [phone] Adelaida Carrion NP Unavailable [phone] José Luis Roberts MD Primary Care Provider Bong Rosado MA Unavailable [phone] Juany Leggett Unavailable Allergies Active Allergy Reactions Criticality Noted Date Comments Eszopiclone Hallucinations,Anaph ylaxis High 09/21/2023 Altered mental status and non responsive Levetiracetam Hallucinations,Other Medium 12/12/2021 Milnacipran Hallucinations,Other ,Unknown Medium 12/12/2021 Other Other 12/12/2021 Penicillins Anaphylaxis High 12/12/2021 Prochlorperazine Unknown,Other Medium 12/12/2021 Tetracycline Hives,Unknown High 12/12/2021 Wound Dressing Adhesive Rash,Unknown Medium 09/19/2022 Medications Multiple Vitamins-Minerals (BARIATRIC MULTIVITAMINS/IRO N PO) Pt taking OTC (Pixtr) Active biotin 5 MG tablet Pt taking OTC (Pixtr) Active Calcium Citrate-Vitamin D (CITRACAL + D PO) Pt taking OTC (Echovox) Active Magnesium 400 MG capsule Pt taking OTC([employer]) Active traZODone (Desyrel) 150 MG tablet Take [...] the ECHO on file from 05/10/2019 at [facility], as well as ECHO report from Mara Sampson earlier this year Well woman exam with routine gynecological exam 02/16/2024 Assessment & Plan (02/16/2024 6:57 AM EST): THIN PREP, fu as per PAP results indicate Monthly BSE Calcium/vit D supplement unless chronic conditions indicate not Exercise as chronic conditions allow Needs flu shot 01/28/2024 AVM (arteriovenous malformation) brain ([facility]) 10/11/2023 Vascular malformation ([facility]) 10/11/2023 Brain lesion 10/11/2023 Carpal tunnel syndrome, [...] (09/21/2023 12:47 PM EDT): Reviewed notes from [facility]'s Former cigarette smoker 08/17/2023 Overview (08/19/2023): LDCT [...] that supplies your machine and tubing/filters etc: [facility] Doctor that manages your OSMANY: Daniela Assessment [...] 1 twice a day #14 pills, Lot [id number], exp 06/29 Acute cough 07/14/2023 10/21/2023 Assessment & Plan (08/17/2023 10:06 AM EDT): resolved Influenza 07/14/2023 10/21/2023 Acute cystitis with hematuria 05/21/2023 10/21/2023 Right sided weakness 05/18/2023 024 Hemorrhoid 05/18/2023 03/16/2024 Overview (05/18/2023): int/external hemorrhoids Brain vascular malformation ([facility]) 05/18/2023 03/16/2024 Constipation 05/18/2023 08/17/2023 Colon polyps [...] of the risks of continued smoking: stroke, [place], all forms of cancer, lung disease, and [...] Encounters Date Type Department Care Team Description 09/26/2024 Clinisync Result Encounter [facility] External Department Unsolicited Adelaida Carrion NP 09/26/2024 Clinisync Result Encounter [facility]OMS External Department Unsolicited Adelaida Carrion NP 09/26/2024 Clinisync Result Encounter NOMS External Department Unsolicited Provider, Generic External Data 09/21/2024 Patient Outreach [facility] [address] [place] [address] Bong Rosado MA 09/19/2024 Abstract [facility] [address] [place] [address] Adelaida Carrion NP 08/30/2024 Patient Outreach [place] [address] [place] [address] Bong Rosado MA 08/16/2024 11:30 AM EDT Office Visit [facility] [address] [place] [address] Adelaida Carrion NP Primary hypertension (Primary Dx); Bronchitis; Bilateral lower extremity edema; Morbid (severe) obesity due to excess calories ([facility]); Pre-diabetes; Allergic rhinitis, unspecified seasonality, unspecified trigger; Encounter for screening mammogram for malignant neoplasm of breast; Former cigarette smoker 08/16/2024 Bamboo flowsheet [facility] [address] [place] [address] Adelaida Carrion NP 08/08/2024 [facility] [address] [place] [address] José Luis Roberts MD 07/27/2024 11:30 AM EDT Office Visit [facility] [address] [place] [address] Adelaida Carrion NP Primary hypertension (Primary Dx); Morbid (severe) obesity due to excess calories ([facility]); Essential (primary) hypertension ; Allergic rhinitis, unspecified; Gastro-esophageal reflux disease without esophagitis; Bilateral lower extremity edema; Bronchitis 07/27/2024 Bamboo flowsheet [facility] [address] [place] [address] Adelaida Carrion NP 07/26/2024 11:00 AM EDT Office Visit [facility] [address] [phone] Juany Leggett PA OSMANY (obstructive sleep apnea) (Primary Dx); Restless leg; 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 [address] [place] [address] Bong Rosado MA 07/26/2024 Bamboo flowsheet [place] [address] [address] Juany Leggett PA 07/08/2024 Refill [facility] [address] [place] [address] José Luis Roberts MD 07/08/2024 Refill [facility] [address] [address] Juany Leggett PA Restless leg 07/08/2024 Refill [facility] [address] [address] [place] [address] Juany Leggett PA Restless leg from Last [...] declined 08/16/2023 How often do you attend oriental orthodox or orthodox serv ices? Never 08/16/2023 Do you belong to any clubs o r organizations such as oriental orthodox groups, unions, fraternal or athletic groups, or [...] Recorded Patient Health Questionnaire-2 Score 2 09/21/2023 [facility] ional [facility] - Occupational [...] [facility] [address] [place] [address] Adelaida Carrion NP [address] [place] [address] Health Maintenance Due Date Last Done Comments CT Colonography 1961 FIT-DNA 1961 FIT 1960 FOBT 1960 Lung Cancer Screening Shared Decision Making 1960 Sigmoidoscopy 1960 HPV/Cotest 12/06/1991 Medicare Annual Wellness (AWV) 02/15/2025 02/16/2024 , 05/18/2023 Cervical Cancer Screening 08/28/2025 Pap Smear 08/28/2025 08/28/2022 Mammogram 09/26/2025 09/26/2024, 09/04, 09/18/2023, Additional history exists Colonoscopy 03/23/2033 03/23/2023, 02/04/2013 Colorectal Cancer Screening 03/23/2033 Influenza Vaccine Completed 01/28/2024, , 05/28/2018 Procedures Procedure Name Priority Date/Time Associated Diagnosis Comments CT LUNG SCREENING LOW DOSE 09/26/2024 5:02 PM EDT MM TOMOSYNTHESIS SCREENING BI 09/26/2024 4:42 PM EDT XR SHOULDER RT MIN 2V 09/26/2024 1:35 PM EDT POCT GLYCOSYLATED HEMOGLOBIN (HGB A1C) Routine 08/16/2024 11:53 AM EDT Pre-diabetes from Last 3 Months Results * CT LUNG SCREENING LOW DOSE (09/26/2024 5:02 PM EDT) Anatomical Region Laterality Modality Other 09/26/2024 5:02 PM EDT Narrative 09/26/2024 5:04 PM EDT The [address] [address] [address] Scan Report Signed Patient: NASIM BE MR#: [id number] : 1960 Acct:[id number] Age/Sex: 63 / F ADM Date: 09/26/24 Loc: MAMMO Attending Dr: Adelaida Carrion NP Ordering Physician: Adelaida Carrion NP Date of Service: 09/26/24 Procedure(s): CT lung screening low-dose Accession Number(s): [id number] cc: Adelaida Carrion NP [place] [id number] Patient Name: NASIM BE MRN: [id number] date: 1960 Sex: F Assigned Patient Location: MAMMO Current Patient Location: RAD Accession/Order Number: [id number] Exam Date: 09/26/2024 16:58 Report Date: 09/26/2024 [...] Guadalupe M.D. 09/26/2024 5:02 PM Dictation Location: [place] [address] Electronically authenticated by: [id number] Y Date: 09/26/2024 17:02 Dictated By: Shaheed Guadalupe M.D. Signed By: 09/26/241703 DD/ 01 TD/TT: Glass Cutter Helper: Procedure Note Radiology, Radiologist, MD - 09/26/2024 [place] [address] CT Scan Report Signed Patient: NASIM BE LMR#: [id number] : 1960cct:[id number] Age/Sex: 63 / FADM Date: 09/26/24 [facility]: Adelaida Carrion NP Ordering Physician: Adelaida Carrion NP Date of Service: 09/26/24 Procedure(s): CT lung screening low-dose Accession Number(s): [id number] cc: Adelaida Carrion NP [place] [id number] Patient Name: NASIM BE MRN: [id number] date: 1960 Sex: F Assigned Patient Location: [facility] Current Patient Location: [facility] Accession/Order Number: [id number] Exam Date: 09/26/2024 16:58 Report Date: 09/26/2024 [...] Guadalupe M.D. 09/26/2024 5:02 PM Dictation Location: [place] [address] Electronically authenticated by: [id number] Y Date: 7:02 Dictated By: Shaheed Guadalupe M.D. Signed By:09/26/24 1704 DD/ 01 TD/TT: Glass Cutter Helper: Adelaida Carrion NP [facility] Final Result * MM TOMOSYNTHESIS SCREENING BI (09/26/2024 4:42 PM EDT) Anatomical Region Laterality Modality Other 09/26/2024 4:42 PM EDT Narrative 09/26/2024 4:43 [place] [address] Mammography Report Signed Patient: NASIM BE MR#: [id number] : 1960 Acct:[id number] Age/Sex: 63 / F ADM Date: 09/26/24 Loc: MAMMO Attending Dr: Adelaida Carrion NP Ordering Physician: Adelaida Carrion NP Results: Date of Service: 09/26/24 Follow Up: Procedure(s): MM tomosynthesis screening BI Accession Number(s): [id number] cc: Adelaida Carrion NP Patient Name: NASIM BE MR#: [id number] : 1960 Exam Date: 09/26/2024 Ordering Doctor: LIVIER CARRION CNP RADIOLOGY REPORT PROCEDURE: MM TOMOSYNTHESIS SCREENING BI COMPARISON: MM TOMOSYNTHESIS SCREENING BI, 09/18/2023. MM TOMOSYNTHESIS SCREENING BI, 09/15/2022. MG MAMM SCREEN 3D BHUMI CAD, 06/20/2021. MG MAMM BHUMI SCRN W CAD DIG, 02/15/2013. INDICATIONS: Screening Calculator Name NCI Breast Cancer Risk Assessment Tool 5 Year Breast Cancer Risk 2.30% Lifetime Breast Cancer Risk 10.00% Personal Breast Cancer No Personal Ovarian Cancer No Treatments None Family Cancers None LOCATION: [facility] BREAST COMPOSITION: There are scattered areas of fibroglandular density. FINDINGS: DIAGNOSTIC CATEGORY 1--NEGATIVE. RIGHT BREAST: No significant suspicious finding. LEFT BREAST: No significant suspicious finding. RECOMMENDATIONS: ROUTINE MAMMOGRAM AND CLINICAL EVALUATION IN 12 MONTHS. PLEASE NOTE: A NORMAL MAMMOGRAM DOES NOT EXCLUDE THE POSSIBILITY OF BREAST CANCER. A CLINICALLY SUSPICIOUS PALPABLE LUMP SHOULD BE BIOPSIED. Dictated by: Olu Grover DO on 09/26/2024 at 16:41 Approved by: Olu Grover DO on 09/26/2024 at 16:42 Dictated By: Olu Grover M.D. Signed By: 09/26/241642 DD/ 41 TD/TT: Glass Cutter Helper: Procedure Note Radiology, Radiologist, MD - 09/26/2024 [place] [address] Mammography Report Signed Patient: NASIM BE LMR#: [id number] : 1960cct:[id number] Age/Sex: 63 / FADM Date: 09/26/24 Loc: MAMMO Attending Dr: Adelaida Carrion NP Ordering Physician: Adelaida Carrion NPResults: Date of Service: 09/26/24Follow Up: Procedure(s): MM tomosynthesis screening BI Accession Number(s): [id number] cc: Adelaida Carrion NP Patient Name: NASIM BE MR#: [id number] : 1960 Exam Date: 09/26/2024 Ordering Doctor: LIVIER CARRION CNP RADIOLOGY REPORT PROCEDURE: MM TOMOSYNTHESIS SCREENING BI COMPARISON: MM TOMOSYNTHESIS SCREENING BI, 09/18/2023. MMTOMOSYNTHESIS SCREENING BI, 09/15/2022. MG MAMM SCREEN 3D BHUMI CAD, 06/20/2021. MG MAMMBIL SCRN W CAD DIG, 02/15/2013. INDICATIONS: Screening Calculator Name NCI Breast Cancer Risk Assessment Tool 5 Year Breast Cancer Risk 2.30% Lifetime Breast Cancer Risk 10.00% Personal Breast Cancer No Personal Ovarian Cancer No Treatments None Family Cancers None LOCATION: [facility] BREAST COMPOSITION: There are scattered areas of fibroglandulardensity. FINDINGS: DIAGNOSTIC CATEGORY 1--NEGATIVE. RIGHT BREAST: No significant suspicious finding. LEFT BREAST: No significant suspicious finding. RECOMMENDATIONS: ROUTINE MAMMOGRAM AND CLINICAL EVALUATION IN 12 MONTHS. PLEASE NOTE: A NORMAL MAMMOGRAM DOES NOT EXCLUDE THE POSSIBILITY OFBREAST CANCER. A CLINICALLY SUSPICIOUS PALPABLE LUMP SHOULD BE BIOPSIED. Dictated by: Olu Grover DO on 09/26/2024 at 16:41 Approved by: Olu Grover DO on 09/26/2024 at 16:42 Dictated By: Olu Grover M.D. Signed By:09/26/241642 DD/ 41 TD/TT: Glass Cutter Helper: Adelaida Carrion NP [facility] Final Result * XR SHOULDER RT MIN 2V (09/26/2024 1:35 PM EDT) Anatomical Region Laterality Modality Other 09/26/2024 1:35 PM EDT Narrative 09/26/2024 1:38 [place] [address] XRay Report Signed Patient: NASIM BE MR#: [id number] : 1960 Acct:[id number] Age/Sex: 63 / F ADM Date: 09/26/24 Loc: RAD Attending Dr: Elizabeth Culp NP Ordering Physician: Elizabeth Culp NP Date of Service: 09/26/24 Procedure(s): XR shoulder RT min 2V Accession Number(s): [id number] cc: Adelaida Carrion NP; Elizabeth Culp NP [place] [address] Patient Name: NASIM BE MRN: [id number] date: 1960 Sex: F Assigned Patient Location: [facility] Current Patient Location: [facility] Accession/Order Number: [id number] Exam Date: 09/26/2024 13:34 Report Date: 09/26/2024 13:35 At the request of: ELIZABETH CULP NP Procedure: XR shoulder RT min 2V XR shoulder RT min 2V 09/26/2024 1:29 PM SIGNS AND SYMPTOMS: Right Shoulder Pain PROTOCOL: Frontal, Grashey, and scapular Y views of the right shoulder COMPARISON: 05/09/2022 FINDINGS: Mild hypertrophic changes are noted in the acromioclavicular joint. There is mild narrowing of the glenohumeral joint. There is no fracture or dislocation. Visualized right hemithorax is grossly intact. Subcortical sclerosis is noted along the greater tuberosity of the humeral head suspicious for underlying rotator cuff pathology. This is similar to the prior exam. Atherosclerotic changes are noted in the thoracic aorta. XR/XR shoulder RT min 2V IMPRESSION: Degenerative changes are redemonstrated in the right shoulder with findings suggesting underlying rotator cuff pathology. No fracture or dislocation. Impression dictated by: Shaheed Guadalupe M.D. 09/26/2024 1:35 PM Dictation Location: [place] [address] Electronically authenticated by: [id number] Y Date: 09/26/2024 13:35 Dictated By: Shaheed Guadalupe M.D. Signed By: 09/26/24 1338 DD/ 34 TD/TT: Glass Cutter Helper: Procedure Note Radiology, Radiologist, MD - 09/26/[address] [address] XRay Report Signed Patient: NASIM BE LMR#: [id number] : 1960cct:[id number] Age/Sex: 63 / FADM Date: 09/26/24 Loc: RAD Attending Dr: Elizabeth Culp NP Ordering Physician: Elizabeth Culp NP Date of Service: 09/26/24 Procedure(s): XR shoulder RT min 2V Accession Number(s): [id number] cc: Adelaida Carrion NP; Elizabeth Culp NP The [address] [address] Patient Name: NASIM BE MRN: [id number] date: 1960 Sex: F Assigned Patient Location: [facility] Current Patient Location: [facility] Accession/Order Number: [id number] Exam Date: 09/26/2024 13:34 Report Date: 09/26/2024 13:35 At the request of: ELIZABETH CULP NP Procedure: XR shoulder RT min 2V XR shoulder RT min 2V 09/26/2024 1:29 PM SIGNS AND SYMPTOMS: Right Shoulder Pain PROTOCOL: Frontal, Grashey, and scapular Y views of the right shoulder COMPARISON: 05/09/2022 FINDINGS: Mild hypertrophic changes are noted in the acromioclavicular joint. Thereis mild narrowing of the glenohumeral joint. There is no fracture or dislocation. Visualized right hemithorax is grossly intact. Subcortical sclerosis is noted along the greater tuberosity of the humeral headsuspicious for underlying rotator cuff pathology. This is similar to the prior exam. Atherosclerotic changes are noted in the thoracic aorta. XR/XR shoulder RT min 2V IMPRESSION: Degenerative changes are redemonstrated in the right shoulder withfindings suggesting underlying rotator cuff pathology. No fracture or dislocation. Impression dictated by: Shaheed Guadalupe M.D. 09/26/2024 1:35 PM Dictation Location: [place] [address] Electronically authenticated by: [id number] Y Date: 3:35 Dictated By: Shaheed Guadalupe M.D. Signed By:09/26/24 1338 DD/ 1335 TD/TT: Glass Cutter Helper: us Generic External Data Provider [facility] Final Result * POCT glycosylated hemoglobin (Hb A1C) docked device (08/16/2024 11:53 AM EDT) Hemoglobin A1C 5.6 Blood Venous blood specimen / Unknown 08/16/2024 11:53 AM EDT Adelaida Carrion BAND AND CUFF CUTTER POINT OF CARE TEST ENTER/EDIT O RDERABLES Final Result from Last 3 Months Insurance [employer] MEDICARE Advance Directives Documents on File Type Date Recorded Patient Tag And Label Cutter Expl anation Power of Dry Clipper Tender 03/16/2024 9:42 AM darian r of commonwealth attorney Power of Dry Clipper Tender 03/10/2024 3:12 PM POA Care Teams Clinical Research Tech Relationship Specialty Start Date End Date José Luis Roberts MD [address] [place] [address] PCP - General Family Medicine 02/02/24 Miriam Suarez DO [address] [place] [address] Referring Physician Neurology 06/29/23 Adelaida Carrion NP [address] [place] [address] Nurse Practitioner Family Medicine 01/27/24 Bong Rosado, MA [address] [place], [place] [address] Family Medicine 02/12/24 Juany Leggett PA [address] [place] [address] Physician Chicken And Fish Butcher Neurology 07/26/24
--- OUTSIDE RECORDS SUMMARY | 2024-09-29 09:36 | XMS_ITS | Encounter Summary ---
Author Organization [facility] Address [address] [place] [address] Care Team Providers Care Financial Processing Clerk Name Role Phone Miriam Suarez DO Unavailable [phone] Adelaida Carrion NP Unavailable [phone] José Luis Roberts MD Primary Care Provider [phone] Bong Rosado MA Unavailable [phone] Juany Leggett Unavailable Encounter Details Date Type Department Care Team (Late st Contact Info) Description 03/02/2024 Orders Only [facility] [address] [place] [address] Adelaida Carrion, BRIANA [address] [place] [address] Social History Tobacco Use Types Packs/Day Years [...] declined 08/16/2023 How often do you attend pentecostal or confucianist serv ices? Never 08/16/2023 Do you belong to any clubs o r organizations such as pentecostal groups, unions, fraternal or athletic groups, or [...] Recorded Patient Health Questionnaire-2 Score 2 09/21/2023 [facility] - Occupational [...] Visit [facility] [address] [place] [address] Adelaida Carrion NP [address] [place] [address] documented as of this encounter Procedures Procedure Name Priority Date/Time Associated Diagnosis Comments SCANNED LABS Routine 03/02/2024 7:33 AM EST documented in this encounter Results * SCANNED LABS (03/02/2024 7:33 AM EST) Adelaida Carrion PIPE FITTINGS MOLDER LAB CHG PERFORMABLES Final Resu lt documented in this encounter Visit Diagnoses Not on filedocumented in this encounter Additional Health Concerns Assessment Noted Time PHQ-9 Depression Total Score: 8 05/18/19 24 5:00 PM EST documented as of this encounter Care Teams Financial Processing Clerk Relationship Specialty Start Date End Date José Luis Roberts MD [address] [place] [address] PCP - General Family Medicine 02/02/24 Miriam Suarez DO [address] [place] [address] Referring Physician Neurology 06/29/23 Adelaida Carrion NP [address] [place] [address] Nurse Practitioner Family Medicine 01/27/24 Bong Rosado MA [address] [place] [address] Family Medicine 02/12/24 Juany Leggett PA [address] [place] [address] Physician Media Sales Consultant Neurology 07/26/24 documented as of this encounter
--- OUTSIDE RECORDS SUMMARY | 2024-09-29 09:36 | XMS_ITS | Encounter Summary ---
Author Organization [facility] Healthcare Address [address] [place] [address] Care Team Providers Care Lead Quality Technician Name Role Phone Miriam Suarez DO Unavailable [phone] Adelaida Carrion NP Unavailable [phone] José Luis Roberts MD Primary Care Provider [phone] Bong Rosado MA Unavailable [phone] Juany Leggett Unavailable Encounter Details Date Type Department Care Team (Late st Contact Info) Description 03/08/2024 Orders Only [facility] [address] [place] [address] Dennis Steel DO Social History [...] declined 08/16/2023 How often do you attend alevism or quaker serv ices? Never 08/16/2023 Do you belong to any clubs o r organizations such as alevism groups, unions, fraternal or athletic groups, or [...] Recorded Patient Health Questionnaire-2 Score 2 09/21/2023 [facility] of Occupat ional Health - Occupational Stress [...] Visit [facility] [address] [place] [address] Adelaida Carrion NP [address] [place] [address] documented as of this encounter Procedures Procedure [...] documented as of this encounter Care Teams Lead Quality Technician Relationship Specialty Start Date End Date José Luis Roberts MD [address] [place] [address] PCP - General Family Medicine 02/02/24 Miriam Suarez DO [address] [place] [address] Referring Physician Neurology 06/29/23 Adelaida Carrion NP [address] [place] [address] Nurse Practitioner Family Medicine 01/27/24 Bong Rosado MA [address] [place] [address] Family Medicine 02/12/24 Juany Leggett PA [address] [place], [place] [address] Physician Directory Carrier Neurology 07/26/24 documented as of this encounter
--- OUTSIDE RECORDS SUMMARY | 2024-09-29 09:36 | XMS_ITS | Encounter Summary ---
Author Organization [facility] Address [address] [place] [address] Care Team Providers Care Oil And Gas Specialist Name Role Phone Adelaida Carrion NP Unavailable [phone] José Luis Roberts MD Primary Care Provider [phone] Miriam Suarez DO Unavailable [phone] Mathew Parra ASTROBIOLOGIST Unavailable Unavailable Diana De Leon LPN Unavailable Unallocated, Noms Provider Primary Care Provi kellee Adelaida Carrion NP Unavailable [phone] José Luis Roberts MD Primary Care Provider [phone] Bong Rosado MA Unavailable [phone] Juany Leggett Unavailable Encounter Details Date Type Department Care Team (Late st Contact Info) Description 10/27/2023 Abstract [facility] [address] [place] [address] Unallocated, Noms Provider, [address] [place], [place] [address] Social History Tobacco Use Types Packs/Day Years [...] declined 08/16/2023 How often do you attend methodist or restorationist serv ices? Never 08/16/2023 Do you belong to any clubs o r organizations such as methodist groups, unions, fraternal or athletic groups, or [...] Recorded Patient Health Questionnaire-2 Score 2 09/21/2023 [facility] of Occupat ional Health - Occupational Stress [...] Office Visit [facility] M[facility]O [address] [place] [address] Adelaida Carrion, BRIANA [address] [place] [address] documented as of this encounter Visit Diagnoses Not on filedocumented in this encounter Additional Health Concerns Assessment Noted Time PHQ-9 Depression Total Score: 8 05/18/19 24 5:00 PM EST documented as of this encounter Care Teams Oil And Gas Specialist Relationship Specialty Start Date End Date José Luis Roberts MD [address] [place] [address] PCP - General Family Medicine 05/18/23 01/26/24 Unallocated, Johan Sierra MD [address] [facility], [place] [address] PCP - General Family Medicine 01/27/24 02/01/24 José Luis Roberts MD [address] [place] [address] PCP - General Family Medicine 02/02/24 Adelaida Carrion NP Referring Physician Nurse Practitioner 10/14/22 Miriam Suarez DO [address] [place] [address] Referring Physician Neurology 06/29/23 Mathew Parra LPN Licensed Practical Nurse Family Medicine 07/23/23 Diana De Leon LPN [address] [place], [place] [address] Licensed Practical Nurse Family Medicine 12/18/2302/11 Adelaida Carrion NP [address] [place] [address] Nurse Practitioner Family Medicine 01/27/24 Bong Rosado, [place] [address] [place] [address] Family Medicine 02/12/24 Juany Leggett PA [address] [place] [address] Physician Enrollment Management Coordinator Neurology 07/26/24 documented as of this encounter
--- OUTSIDE RECORDS SUMMARY | 2024-09-29 09:36 | XMS_ITS | Encounter Summary ---
Author Organization [facility] Address [address] [place] [address] Care Team Providers Care Golf Club Assembler Name Role Phone Miriam Suarez DO Unavailable [phone] Adelaida Carrion NP Unavailable [phone] José Luis Roberts MD Primary Care Provider Bong Rosado MA Unavailable [phone] Juany Leggett Unavailable Encounter Details Date Type Department Care Team (Late st Contact Info) Description 03/17/2024 Orders Only [facility] [address] [place] [address] Adelaida Carrion, BRIANA [address] [place] [address] Social History Tobacco Use Types Packs/Day Years [...] declined 08/16/2023 How often do you attend latter day or anabaptist serv ices? Never 08/16/2023 Do you belong to any clubs o r organizations such as latter day groups, unions, fraternal or athletic groups, or [...] Recorded Patient Health Questionnaire-2 Score 2 09/21/2023 [facility]ational Stress Questionnaire [...] Visit [facility] FLORES [address] [place] [address] Adelaida Carrion NP [address] [place] [address] documented as of this encounter Procedures Procedure [...] documented as of this encounter Care Teams Golf Club Assembler Relationship Specialty Start Date End Date José Luis Roberts MD [address] [place] [address] PCP - General Family Medicine 02/02/24 Miriam Suarez DO [address] [place] [address] Referring Physician Neurology 06/29/23 Adelaida Carrion NP [address] [place] [address] Nurse Practitioner Family Medicine 01/27/24 Bong Rosado MA [address] [place] [address] Family Medicine 02/12/24 Juany Leggett PA [address] [place] [address] Physician Director Talent Neurology 07/26/24 documented as of this encounter
--- OUTSIDE RECORDS SUMMARY | 2024-09-29 09:36 | XMS_ITS | Encounter Summary ---
Author Organization [facility] Address [address] [place] [address] Care Team Providers Care Disability Aide Name Role Phone Daniela Miriam GRAHAM Unavailable [phone] Adelaida Carrion NP Unavailable [phone] José Luis Roberts MD Primary Care Provider Bong Rosado MA Unavailable [phone] Juany Leggett Unavailable Encounter Details Date Type Department Care Team (Late st Contact Info) Description 09/26/2024 Clinisync Result Encounter [facility] External Department Unsolicited Adelaida Carrion, BRIANA [address] [place] [address] Social History Tobacco Use Types Packs/Day Years [...] declined 08/16/2023 How often do you attend judaism or nondenominational serv ices? Never 08/16/2023 Do you belong to any clubs o r organizations such as judaism groups, unions, fraternal or athletic groups, or [...] Recorded Patient Health Questionnaire-2 Score 2 09/21/2023 [facility] of Occupat ional Health - [...] place to sleep or slept in a retirement (including now)? No 08/16/2023 Housing Stability Vital [...] Visit [facility]ZIA FM [address] [place] [address] Adelaida Carrion NP [address] [place] [address] documented as of this encounter Procedures Procedure Name Priority Date/Time Associated Diagnosis Comments MM TOMOSYNTHESIS SCREENING BI 09/26/2024 4:42 PM EDT documented in this encounter Results * MM TOMOSYNTHESIS SCREENING BI (09/26/2024 4:42 PM EDT) Anatomical Region Laterality Modality Other 09/26/2024 4:42 PM EDT Narrative 09/26/2024 4:43 [place] [address] Mammography Report Signed Patient: NASIM INGRAM MR#: [id number] : 1960 Acct:[id number] Age/Sex: 63 / F ADM Date: 09/26/24 Loc: MAMMO Attending Dr: Adelaida Carrion NP Ordering Physician: Adleaida Carrion NP Results: Date of Service: 09/26/24 Follow Up: Procedure(s): MM tomosynthesis screening BI Accession Number(s): [id number] cc: Adelaida Carrion NP Patient Name: NASIM INGRAM MR#: [id number] : 1960 Exam Date: 09/26/2024 Ordering Doctor: [...] Treatments None Family Cancers None LOCATION: [facility] BREAST COMPOSITION: There are scattered areas of [...] M.D. Signed By: 09/26/241642 DD/ 41 TD/TT: River [employer] Worker: Procedure Note Radiology, Radiologist, MD - 09/26/2024 [place] [address] Mammography Report Signed Patient: NASIM INGRAM LMR#: [id number] : 1960cct:[id number] Age/Sex: 63 / FADM Date: 09/26/24 Loc: MAMMO Attending Dr: Adelaida Carrion NP Ordering Physician: Adelaida Carrion NPResults: Date of Service: 09/26/24Follow Up: Procedure(s): MM tomosynthesis screening BI Accession Number(s): [id number] cc: Adelaida Carrion NP Patient Name: NASIM INGRAM MR#: [id number] : 1960 Exam Date: 09/26/2024 Ordering Doctor: [...] Treatments None Family Cancers None LOCATION: [facility] BREAST COMPOSITION: There are scattered areas of [...] Grover M.D. Signed By:09/26/241642 DD/ 41 TD/TT: [employer] Worker: us Adelaida Carrion NP [facility] Final Result documented in this encounter Visit Diagnoses Not on filedocumented in this encounter Additional Health Concerns Assessment Noted Time PHQ-9 Depression Total Score: 8 05/18/19 24 5:00 PM EST documented as of this encounter Care Teams Disability Aide Relationship Specialty Start Date End Date José Luis Roberts MD [address] [place] [address] PCP - General Family Medicine 02/02/24 Miriam Suarez DO [address] [place] [address] Referring Physician Neurology 06/29/23 Adelaida Carrion NP [address] [place] [address] Nurse Practitioner Family Medicine 01/27/24 Bong Rosado MA [address] [place] [address] Family Medicine 02/12/24 Juany Leggett PA [address] [place] [address] Physician Break Up Worker Neurology 07/26/24 documented as of this encounter
--- OUTSIDE RECORDS SUMMARY | 2024-09-29 09:37 | XMS_ITS | Encounter Summary ---
Author Organization [facility] Address [address] [place] [address] Care Team Providers Care Promotions Specialist Name Role Phone Adelaida Carrion NP Unavailable [phone] José Luis Roberts MD Primary Care Provider [phone] José Luis Roberts MD Primary Care Provider [phone] Miriam Suarez DO Unavailable [phone] [place], Ardana VEGETABLE TIER Unavailable Unavailable Aida Ardana VEGETABLE TIER Unavailable Unavailable Diana De Leon VEGETABLE TIER Unavailable Unallocated, Noms Provider Primary Care Provi kellee Adelaida Carrion NP Unavailable [phone] José Luis Roberts MD Primary Care Provider [phone] Bong Rosado MA Unavailable [phone] Juany Leggett Unavailable Encounter Details Date Type Department Care Team (Late st Contact Info) Description 03/25/2023 Abstract [facility] [address] [place] [address] Adelaida Carrion NP [address] [place] [address] Social History Tobacco Use Types Packs/Day Years [...] Office Visit JOHAN MANDUJANO [address] [place] [address] Adelaida Carrion NP [address] [place] [address] documented as of this encounter Visit Diagnoses Not on filedocumented in this encounter Care Teams Promotions Specialist Relationship Specialty Start Date End Date José Luis Roberts MD PCP - General Family Medicine 10/14/22 05/17/23 José Luis Roberts MD [address] [place] [address] PCP - General Family Medicine 05/18/23 01/26/24 Unallocated, Johan Sierra MD [address] [place] [address] PCP - General Family Medicine 01/27/24 02/01/24 José Luis Roberts MD [address] [place] [address] PCP - General Family Medicine 02/02/24 Adelaida Carrion NP Referring Physician Nurse Practitioner 10/14/22 Miriam Suarez DO [address], [place] [address] Referring Physician Neurology 06/29/23 Mathew Parra LPN Registered Nurse Family Medicine 07/07/23 07/08/23 Mathew Parra LPN Licensed Practical Nurse Family Medicine 07/23/23 Diana De Leon LPN [address] [place], [place] [address] Licensed Practical Nurse Family Medicine 12/18/2302/11 Adelaida Carrion NP [address] [place] [place] [address] Nurse Practitioner Family Medicine 01/27/24 Bong Rosado, [place] [address] [place] [address] Family Medicine 02/12/24 Juany Leggett PA [address] [place] [address] Physician Pet Care Associate Neurology 07/26/24 documented as of this encounter
--- OUTSIDE RECORDS SUMMARY | 2024-09-29 09:37 | XMS_ITS | Encounter Summary ---
Author Organization [facility] Address [address] [place] [address] Care Team Providers Care Manager Appointment Name Role Phone Adelaida Carrion NP Unavailable [phone] José Luis Roberts MD Primary Care Provider [phone] Miriam Suarez DO Unavailable [phone] Mathew Parra GARMENT LINER Unavailable Unavailable Diana De Leon LPN Unavailable Unallocated, Noms Provider Primary Care Provi kellee Adelaida Carrion NP Unavailable [phone] José Luis Roberts MD Primary Care Provider [phone] Bong Rosado MA Unavailable [phone] Juany Leggett Unavailable Encounter Details Date Type Department Care Team (Late st Contact Info) Description 09/01/2023 Orders Only [facility] [address] [place] [address] Shaikh Alberto MD [address] [place] [address] Social History Tobacco Use Types [...] How often do you attend adventism or taoism serv ices? Never 08/16/2023 Do [...] Patient Health Questionnaire-2 Score 0 08/17/2023 [facility] of Occupat ional Health - Occupational [...] place to sleep or slept in a residential (including now)? No 08/16/2023 Housing Stability Vital [...] [facility] [address] [place] [address] Adelaida Carrion NP [address] [place] [address] documented as of this encounter Procedures Procedure [...] documented as of this encounter Care Teams Manager Appointment Relationship Specialty Start Date End Date José Luis Roberts MD [address] [place] [address] PCP - General Family Medicine 05/18/23 01/26/24 Unallocated, Johan Sierra MD [address] [place] [address] PCP - General Family Medicine 01/27/24 02/01/24 José Luis Roberts MD [address] [place] [address] PCP - General Family Medicine 02/02/24 Adelaida Carrion NP Referring Physician Nurse Practitioner 10/14/22 Miriam Suarez DO [address] [place], [place] [address] Referring Physician Neurology 06/29/23 Mathew Parra LPN Licensed Practical Nurse Family Medicine 07/23/23 Diana De Leon LPN [address] [place] [address] Licensed Practical Nurse Family Medicine 12/18/2302/11 Adelaida Carrion NP [address] [place] [address] Nurse Practitioner Family Medicine 01/27/24 Bong Rosado MA [address] [place] [address] Family Medicine 02/12/24 Juany Leggett PA [address] [place], [place] [address] Physician Degreaser Neurology 07/26/24 documented as of this encounter
--- OUTSIDE RECORDS SUMMARY | 2024-09-29 09:37 | XMS_ITS | Patient Health Record ---
Author Organization [facility] [place] Address [address] [place] [address] Care Team Providers Care Manager Compensation Name Role Phone Adelaida Carrion CNP Primary [...] Problem Status W/U Status Risk Notes Problem 44985861 Sprain of tarsometatarsal ligament of right foot, initial encounter (S93.621A) Active confirmed Problem [id number] Lumbar postlaminectomy syndrome (M96.1) Active confirmed Problem 60521232 Lumbosacral spondylosis without myelopathy (M47.817) Active confirmed Problem Altered mental status (R41.82) Active confirmed Plan [...] [employer] MEDICARE PPO [address] [address] [place], [place] [id number] [phone] [id number] Nasim Conway Self - patient is the insured [place]IC[place] [address] [id number] Nasim Conway Self - patient is the insured Medical (General) History Medical History History ICD Code Right foot pain M79.671 hypertension dysphagia Osteoporosis M81.0 Bipolar disorder with severe depression F31.4 Brain vascular 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
--- OUTSIDE RECORDS SUMMARY | 2024-09-29 09:37 | XMS_ITS | Encounter Summary ---
Author Organization [facility] Address [address] [place] [address] Care Team Providers Care Post Hole Digger Name Role Phone Adelaida Carrion NP Unavailable [phone] José Luis Roberts MD Primary Care Provider [phone] Miriam Suarze DO Unavailable [phone] Mathwe Parra BRINE MAKER Unavailable Unavailable Diana De Leon BRINE MAKER Unavailable Unallocated, Noms Provider Primary Care Provi kellee Adelaida Carrion NP Unavailable [phone] José Luis Roberts MD Primary Care Provider [phone] Bong Rosado MA Unavailable [phone] Juany Leggett Unavailable Encounter Details Date Type Department Care Team (Late st Contact Info) Description 08/26/2023 Orders Only [facility] [address] [place] [address] Arsalan Hagen MD [address] [address] Social History Tobacco Use Types Packs/Day Years [...] declined 08/16/2023 How often do you attend mandaeism or gnosticism serv ices? Never 08/16/2023 Do you belong to any clubs o r organizations such as mandaeism groups, unions, fraternal or athletic groups, or [...] Recorded Patient Health Questionnaire-2 Score 0 08/17/2023 [facility] [place] of Occupat ional Health [...] Office Visit [facility] C[facility] [address] [place] [address] Adelaida Carrion, BRIANA [address] [place] [address] documented as of this encounter Procedures Procedure [...] documented as of this encounter Care Teams Post Hole Digger Relationship Specialty Start Date End Date José Luis Roberts MD [address] [place] [address] PCP - General Family Medicine 05/18/23 01/26/24 Unallocated, Johan Sierra MD [address] [place] [address] PCP - General Family Medicine 01/27/24 02/01/24 José Luis Roberts MD [address] [place] [address] PCP - General Family Medicine 02/02/24 Adelaida Carrion, BRIANA Referring Physician Nurse Practitioner 10/14/22 Miriam Suarez DO [address] [place], [place] [address] Referring Physician Neurology 06/29/23 Mathew Parra LPN Licensed Practical Nurse Family Medicine 07/23/23 Diana De Leon LPN [address] [place] [address] Licensed Practical Nurse Family Medicine 12/18/2302/11 Adelaida Carrion NP [address] [facility] [place] [address] Nurse Practitioner Family Medicine 01/27/24 Bong Rosado, [place] [address] [place] [address] Family Medicine 02/12/24 Juany Leggett PA [address] [place] [address] Physician Licensed Weigher Neurology 07/26/24 documented as of this encounter
--- OUTSIDE RECORDS SUMMARY | 2024-09-29 09:37 | XMS_ITS | Encounter Summary ---
Author Organization [facility] Address [address] [place] [address] Care Team Providers Care Patent Attorney Name Role Phone Adelaida Carrion NP Unavailable [phone] José Luis Roberts MD Primary Care Provider [phone] Miriam Suarez DO Unavailable [phone] Mathew Parra SWITCH BOX INSTALLER Unavailable Unavailable Diana De Leon SWITCH BOX INSTALLER Unavailable Unallocated, Noms Provider Primary Care Provi kellee Adelaida Carrion NP Unavailable [phone] José Luis Roberts MD Primary Care Provider [phone] Bong Rosado MA Unavailable [phone] Juany Leggett Unavailable Encounter Details Date Type Department Care Team (Late st Contact Info) Description 07/14/2023 Orders Only [facility] [address] [place] [address] Adelaida Carrion NP [address] [place] [address] Social History Tobacco Use Types [...] Never 05/18/2023 How often do you attend mandaen or bahai serv ices? Never 05/18/2023 Do you belong to any clubs o r organizations such as mandaen groups, unions, fraternal or athletic groups, or [...] Recorded Patient Health Questionnaire-2 Score 0 07/07/2023 [facility] [place] of Occupat ional Health - Occupational Stress [...] slept in a fpc (including now)? No 05/18/2023 Comments Unknown Sex [...] [facility] FLORES [address] [place] [address] Adelaida Carrion NP [address] [place] [address] documented as of this encounter Procedures Procedure Name Priority Date/Time Associated Diagnosis Comments XR CHEST 1 VIEW Routine 07/11/2023 9:09 AM EDT documented in this encounter Results * XR chest 1 view (07/11/2023 9:09 AM EDT) Anatomical Region Laterality Modality Chest Radiographic Nelda ging Adelaida Carrion GUEST RELATIONS ASSOCIATE IMG XR PROCEDURES Final Result documented in this encounter Visit Diagnoses Not on filedocumented in this encounter Additional Health Concerns Assessment Noted Time PHQ-9 Depression Total Score: 8 05/18/19 24 5:00 PM EST documented as of this encounter Care Teams Patent Attorney Relationship Specialty Start Date End Date José Luis Roberts MD [address] [place] [address] PCP - General Family Medicine 05/18/23 01/26/24 Unallocated, Noms Provider, [address] [place] [address] PCP - General Family Medicine 01/27/24 02/01/24 José Luis Roberts MD [address] [address] PCP - General Family Medicine 02/02/24 Adelaida Carrion NP Referring Physician Nurse Practitioner 10/14/22 Miriam Suarez DO [address] [place] [address] Referring Physician Neurology 06/29/23 Mathew Parra LPN Licensed Practical Nurse Family Medicine 07/23/23 Diana De Leon, ADRIAN [address] [place], [place] [address] Licensed Practical Nurse Family Medicine 12/18/2302/11 Adelaida Carrion NP [address] [place] [address] Nurse Practitioner Family Medicine 01/27/24 Bong Rosado, [place] [address] [place] [address] Family Medicine 02/12/24 Juany Leggett PA [address] [place] [address] Physician Swine Genetics Researcher Neurology 07/26/24 documented as of this encounter
--- OUTSIDE RECORDS SUMMARY | 2024-09-29 09:37 | XMS_ITS | Encounter Summary ---
Author Organization [facility] Address [address] [place] [address] Care Team Providers Care Clay Puddler Name Role Phone Adelaida Carrion NP Unavailable [phone] José Luis Roberts MD Primary Care Provider [phone] Miriam Suarez DO Unavailable [phone] Mathew Parra ROPE TWISTING MACHINE OPERATOR Unavailable Unavailable Diana De Leon LPN Unavailable Unallocated, Noms Provider Primary Care Provi kellee Adelaida Carrion NP Unavailable [phone] José Luis Roberts MD Primary Care Provider [phone] Bong Rosado MA Unavailable [phone] Juany Leggett Unavailable Encounter Details Date Type Department Care Team (Late st Contact Info) Description 08/19/2023 Clinisync Result Encounter [facility] External Department Unsolicited Adelaida Carrion NP [address] [place] [address] Social History Tobacco Use Types Packs/Day Years [...] declined 08/16/2023 How often do you attend zoroastrian or yarsanism serv ices? Never 08/16/2023 Do you belong to any clubs o r organizations such as zoroastrian groups, unions, fraternal or athletic groups, or [...] Recorded Patient Health Questionnaire-2 Score 0 08/17/2023 [employer] of Occupat ional Health - Occupational Stress [...] Visit [facility] [address] [place] [address] Adelaida Carrion NP [address] [place] [address] documented as of this encounter Procedures Procedure Name Priority Date/Time Associated Diagnosis Comments CT LUNG SCREENING LOW DOSE 08/19/2023 6:06 AM EDT documented in this encounter Results * CT LUNG SCREENING LOW DOSE (08/19/2023 6:06 AM EDT) Anatomical Region Laterality Modality Other 08/19/2023 6:06 AM EDT Narrative 08/19/2023 6:09 [place] [address] CT Scan Report Signed Patient: NASIM INGRAM MR#: [id number] : 1960 Acct:[id number] Age/Sex: 62 / F ADM Date: 08/18/23 Loc: CT Attending Dr: Adelaida Carrion TRUCK MECHANIC Ordering Physician: Adelaida Carrion NP Date of Service: 08/18/23 Procedure(s): CT lung screening low-dose Accession Number(s): [id number] cc: Adelaida Carrion NP [address] [address] Patient Name: NASIM INGRAM MRN: [id number] date: 1960 Sex: F Assigned Patient Location: CT Current Patient Location: Accession/Order Number: [id number] Exam Date: 08/18/2023 13:28 Report Date: 08/19/2023 [...] M.D. Signed By: 08/19/23608 DD/ 5 TD/TT: Sales Representative Raw Fibers: Procedure Note Radiology, Radiologist, MD - 08/19/[address] [place] [id number] [address] Scan Report Signed Patient: NASIM INGRAM LMR#: [id number] : 1960cct:[id number] Age/Sex: 62 / FADM Date: 08/18/23 Loc: CT Attending Dr: Adelaida Carrion NP Ordering Physician: Adelaida Carrion NP Date of Service: 08/18/23 Procedure(s): CT lung screening low-dose Accession Number(s): [id number] cc: Adelaida Carrion NP The [address] [address] Patient Name: NASIM INGRAM MRN: [id number] date: 1960 Sex: F Assigned Patient Location: CT Current Patient Location: Accession/Order Number: [id number] Exam Date: 08/18/2023 13:28 Report Date: 08/19/2023 [...] Dhillon M.D. Signed By:08/19/23608 DD/ 5 TD/TT: Sales Representative [employer]: Adelaida Carrion TRUCK MECHANIC [facility] Final Result documented in this encounter Visit Diagnoses Not on filedocumented in this encounter Additional Health Concerns Assessment Noted Time PHQ-9 Depression Total Score: 8 05/18/19 24 5:00 PM EST documented as of this encounter Care Teams Clay Puddler Relationship Specialty Start Date End Date José Luis Roberts MD [address] [place] [address] PCP - General Family Medicine 05/18/23 01/26/24 Unallocated, Noms MD Mariela [address] [place] [address] PCP - General Family Medicine 01/27/24 02/01/24 José Luis Roberts MD [address] [place] [address] PCP - General Family Medicine 02/02/24 Adelaida Carrion NP Referring Physician Nurse Practitioner 10/14/22 Miriam Suarez DO [address] [place], [place] [address] Referring Physician Neurology 06/29/23 Mathew Parra LPN Licensed Practical Nurse Family Medicine 07/23/23 Diana De Leon LPN [address] [place] [address] Licensed Practical Nurse Family Medicine 12/18/2302/11 Adelaida Carrion NP [address] [place] [address] Nurse Practitioner Family Medicine 01/27/24 Bong Rosado, [place] [address] [place] [address] Family Medicine 02/12/24 Juany Leggett PA [address] [place], [place] [address] Physician Branch Associate Teller Neurology 07/26/24 documented as of this encounter
--- OUTSIDE RECORDS SUMMARY | 2024-09-29 09:37 | XMS_ITS | Encounter Summary ---
Author Organization [facility] Address [address] [place] [address] Care Team Providers Care Regional Engagement Consultant Name Role Phone Adelaida Carrion NP Unavailable [phone] José Luis Roberts MD Primary Care Provider [phone] José Luis Roberts MD Primary Care Provider [phone] Miriam Suarez DO Unavailable [phone] [place], Ardana CASINO FLOOR PERSON Unavailable Unavailable Aida Ardana CASINO FLOOR PERSON Unavailable Unavailable Diana De Leon CASINO FLOOR PERSON Unavailable Unallocated, Noms Provider Primary Care Provi kellee Adelaida Carrion NP Unavailable [phone] José Luis Roberts MD Primary Care Provider [phone] Bong Rosado MA Unavailable [phone] Juany Leggett Unavailable Encounter Details Date Type Department Care Team (Late st Contact Info) Description 04/09/2023 Abstract [facility] [address] [place] [address] Adelaida Carrion NP [address] [place] [address] Social History Tobacco Use Types Packs/Day Years [...] Office Visit JOHAN MANDUJANO [address] [place] [address] Adelaida Carrion, BRIANA [address] [place] [address] documented as of this encounter Visit Diagnoses Not on filedocumented in this encounter Care Teams Regional Engagement Consultant Relationship Specialty Start Date End Date José Luis Roberts MD PCP - General Family Medicine 10/14/22 05/17/23 José Luis Roberts MD [address] [place] [address] PCP - General Family Medicine 05/18/23 01/26/24 Unallocated, Johan Sierra MD [address] [place] [address] PCP - General Family Medicine 01/27/24 02/01/24 José Luis Roberts MD [address] [place] [address] PCP - General Family Medicine 02/02/24 Adelaida Carrion NP Referring Physician Nurse Practitioner 10/14/22 Miriam Suarez DO [address] [place], [place] [address] Referring Physician Neurology 06/29/23 Mathew Parra LPN Registered Nurse Family Medicine 07/07/23 07/08/23 Mathew Parra LPN Licensed Practical Nurse Family Medicine 07/23/23 Diana De Leon LPN [address] [place] [address] Licensed Practical Nurse Family Medicine 12/18/2302/11 Adelaida Carrion NP [address] [place] [address] Nurse Practitioner Family Medicine 01/27/24 Bong Rosado MA [address] [place] [address] Family Medicine 02/12/24 Juany Leggett PA [address] [place] [address] Physician Safety Instructor Neurology 07/26/24 documented as of this encounter
--- OUTSIDE RECORDS SUMMARY | 2024-09-29 09:37 | XMS_ITS | Encounter Summary ---
Author Organization [facility] Address [address] [facility] [place] [address] Care Team Providers Care Pull Through Hooker Name Role Phone Adelaida Carrion NP Unavailable [phone] José Luis Roberts MD Primary Care Provider [phone] José Luis Roberts MD Primary Care Provider [phone] Miriam Suarez DO Unavailable [phone] [place], Ardana UNIT SECY Unavailable Unavailable Aida Ardana UNIT SECY Unavailable Unavailable Diana De Leon UNIT SECY Unavailable Unallocated, Noms Provider Primary Care Provi kellee Adelaida Carrion NP Unavailable [phone] José Luis Roberts MD Primary Care Provider [phone] Bong Rosado MA Unavailable [phone] Juany Leggett Unavailable Encounter Details Date Type Department Care Team (Late st Contact Info) Description 03/06/2023 Clinisync Result Encounter [facility] External Department Unsolicited Ashleigh Hines PA [address] [facility] [address] [place] [address] Social History Tobacco Use Types Packs/Day Years [...] [facility] [address] [place] [address] Adelaida Carrion NP [address] [place] [address] documented as of this encounter Procedures Procedure Name Priority Date/Time Associated Diagnosis Comments KNEE RT WO CON 03/06/2023 3:5 5 PM EST documented in this encounter Results * MR KNEE RT WO CON (03/06/2023 3:55 PM EST) Anatomical Region Laterality Modality Other 03/06/2023 3:55 PM EST Narrative 03/06/2023 3:55 PM EST [address] [address] Magnetic Resonance Report Signed Patient: NASIM BE MR#: [id number] : 1960 Acct:[id number] Age/Sex: 62 / F ADM Date: 03/06/23 Loc: MRI Attending Dr: Ashleigh REDDY Ordering Physician: Ashleigh Hines Date of Service: 03/06/23 Procedure(s): knee RT wo con Accession Number(s): [id number] cc: Adelaida Carrion CERTIFIED EMERGENCY VEHICLE TECHNICIAN; Ashleigh Hines [address] [address] Patient Name: NASIM BE MRN: [id number] date: 1960 Sex: F Assigned Patient Location: MRI Current Patient Location: MRI Accession/Order Number: [id number] Exam Date: 03/06/2023 09:30 Report Date: 03/06/2023 [...] Signed By: 03/06/23 1558 DD/ 1555 TD/TT: Rn Utilization Management Um: Procedure Note Radiology, Radiologist, - 03/06/2023 [place] [address] Magnetic Resonance Report Signed Patient: NASIM BE LMR#: [id number] : 1960cct:[id number] Age/Sex: 62 / FADM Date: 03/06/23 Loc: MRI Attending Dr: Ashleigh REDDY Ordering Physician: Ashleigh Hines Date of Service: 03/06/23 Procedure(s): MR knee RT wo con Accession Number(s): [id number] cc: Adelaida Carrion NP; Ashleigh Hines [place] [address] Patient Name: NASIM BE MRN: [facility]:[id number] date: 1960 Sex: F Assigned Patient Location: MRI Current Patient Location: MRI Accession/Order Number: [id number] Exam Date: 03/06/2023 09:30 Report Date: 03/06/2023 [...] M.D. Signed By:03/06/23 1558 DD/ 1555 TD/TT: Rn Utilization Management Um: us Ashleigh REDDY [facility] Final Resul t documented in this encounter Visit Diagnoses Not on filedocumented in this encounter Care Teams Pull Through Hooker Relationship Specialty Start Date End Date José Luis Roberts MD PCP - General Family Medicine 10/14/22 05/17/23 José Luis Roberts MD [address] [place] [address] PCP - General Family Medicine 05/18/23 01/26/24 Unallocated, Noms MD Mariela [address] [place] [address] PCP - General Family Medicine 01/27/24 02/01/24 José Luis Roberts MD [address] [place] [address] PCP - General Family Medicine 02/02/24 Adelaida Carrion NP Referring Physician Nurse Practitioner 10/14/22 Miriam Suarez DO [address] [place] [address] Referring Physician Neurology 06/29/23 Mathew Parra LPN Registered Nurse Family Medicine 07/07/23 07/08/23 Mathew Parra LPN Licensed Practical Nurse Family Medicine 07/23/23 Diana De Leon LPN [address] [place], [place] [address] Licensed Practical Nurse Family Medicine 12/18/2302/11 Adelaida Carrion NP [address] [place] [address] Nurse Practitioner Family Medicine 01/27/24 Bong Rosado, [place] [address] [place] [address] Family Medicine 02/12/24 Juany Leggett PA [address] [place] [address] Physician Reclamation Worker Neurology 07/26/24 documented as of this encounter
--- OUTSIDE RECORDS SUMMARY | 2024-09-29 09:37 | XMS_ITS | Encounter Summary ---
Author Organization [facility] Address [address] [place] [address] Care Team Providers Care Sustainability Purchasing Agent Name Role Phone Adelaida Carrion NP Unavailable [phone] José Luis Roberts MD Primary Care Provider [phone] José Luis Roberts MD Primary Care Provider [phone] Miriam Suarez DO Unavailable [phone] [place], Ardana BIOINFORMATICS TECHNICIAN Unavailable Unavailable Fran Parradana BIOINFORMATICS TECHNICIAN Unavailable Unavailable Diana De Leon BIOINFORMATICS TECHNICIAN Unavailable Unallocated, Noms Provider Primary Care Provi kellee Adelaida Carrion HOSPICE PLAN ADMINISTRATOR Unavailable [phone] José Luis Roberts MD Primary Care Provider [phone] Bong Rosado MA Unavailable [phone] Juany Leggett Unavailable Encounter Details Date Type Department Care Team (Late st Contact Info) Description 01/23/2023 Abstract [facility] [address] [facility] 150 [place] [address] Travon Hines PA [address] [facility] 150 [place] [address] Social History Tobacco Use Types Packs/Day Years [...] Visit [facility] [address] [place] [address] Adelaida Carrion NP [address] [place] [address] documented as of this encounter Visit Diagnoses Not on filedocumented in this encounter Care Teams Sustainability Purchasing Agent Relationship Specialty Start Date End Date José Luis Roberts MD PCP - General Family Medicine 10/14/22 05/17/23 José Luis Roberts MD [address] [place] [address] PCP - General Family Medicine 05/18/23 01/26/24 Unallocated, Johan Sierra MD [address] [place] [address] PCP - General Family Medicine 01/27/24 02/01/24 José Luis Roberts MD [address] [place] [address] PCP - General Family Medicine 02/02/24 Adelaida Carrion NP Referring Physician Nurse Practitioner 10/14/22 Miriam Suarez DO [address] [place], [place] [address] Referring Physician Neurology 06/29/23 Mathew Parra LPN Registered Nurse Family Medicine 07/07/23 07/08/23 Mathew Parra LPN Licensed Practical Nurse Family Medicine 07/23/23 Diana De Leon LPN [address] [place] [address] Licensed Practical Nurse Family Medicine 12/18/2302/11 Adelaida Carrion NP [address] [place] [address] Nurse Practitioner Family Medicine 01/27/24 Bong Rosado, [place] [address] [place] [address] Family Medicine 02/12/24 Juany Leggett PA [address] [place] [address] Physician Cold Food Packer Neurology 07/26/24 documented as of this encounter
--- OUTSIDE RECORDS SUMMARY | 2024-09-29 09:37 | XMS_ITS | Encounter Summary ---
Author Organization [facility] Address [address] [place] [address] Care Team Providers Care Process Safety Engineering Technologist Name Role Phone Daniela Miriam DO Unavailable [phone] Adelaida Carrion NP Unavailable [phone] José Luis Roberts MD Primary Care Provider [phone] Bong Rosado MA Unavailable [phone] Juany Leggett Unavailable Encounter Details Date [...] declined 08/16/2023 How often do you attend restoration or jainism serv ices? Never 08/16/2023 Do you belong to any clubs o r organizations such as restoration groups, unions, fraternal or athletic groups, or [...] Recorded Patient Health Questionnaire-2 Score 2 09/21/2023 [facility] of Occupat ional [facility] - Occupational Stress Questionnaire Answer Date [...] Visit [facility] [address] [place] [address] Adelaida Carrion NP [address] [place] [address] documented as of this encounter Procedures Procedure Name Priority Date/Time Associated Diagnosis Comments XR SHOULDER RT MIN 2V 09/26/2024 1:35 PM EDT documented in this encounter Results * XR SHOULDER RT MIN 2V (09/26/2024 1:35 PM EDT) Anatomical Region Laterality Modality Other 09/26/2024 1:35 PM EDT Narrative 09/26/2024 1:38 [place] [address] XRay Report Signed Patient: NASIM INGRAM MR#: [id number] : 1960 Acct:[id number] Age/Sex: 63 / F ADM Date: 09/26/24 Loc: SA[facility]IL Attending Dr: Elizabeth Cano NP Ordering Physician: Elizabeth Cano NP Date of Service: 09/26/24 Procedure(s): XR shoulder RT min 2V Accession Number(s): [id number] cc: Adelaida Carrion PROJECT COORDINATOR; Elizabeth Cano NP The [place] [address] Patient Name: NASIM INGRAM MRN: [id number] date: 1960 Sex: F Assigned Patient Location: [facility] Current Patient Location: [facility] Accession/Order Number: [id number] Exam Date: 09/26/2024 13:34 Report Date: 09/26/2024 13:35 At the request of: ELIZABETH CANO NP Procedure: XR shoulder RT min 2V [...] Guadalupe M.D. 09/26/2024 1:35 PM Dictation Location: [place] [address] Electronically authenticated by: [id number] Y Date: 09/26/2024 13:35 Dictated By: Shaheed Guadalupe M.D. Signed By: 09/26/24 1338 DD/ 34 TD/TT: Hand Developer: Procedure Note Radiology, Radiologist, MD - 09/26/2024 [place] [address] XRay Report Signed Patient: NASIM INGRAM R#: [id number] : 1960cct:[id number] Age/Sex: 63 / FADM Date: 09/26/24 Loc: RAD Attending Dr: Elizabeth Cano NP Ordering Physician: Elizabeth Cano NP Date of Service: 09/26/24 Procedure(s): XR shoulder RT min 2V Accession Number(s): [id number] cc: Adelaida Carrion NP; Elizabeth Cano NP The [place] [address] Patient Name: NASIM INGRAM MRN: [id number] date: 1960 Sex: F Assigned Patient Location: [facility] Current Patient Location: [facility] Accession/Order Number: [id number] Exam Date: 09/26/2024 13:34 Report Date: 09/26/2024 13:35 At the request of: ELIZABETH CANO NP Procedure: XR shoulder RT min 2V [...] Guadalupe M.D. 09/26/2024 1:35 PM Dictation Location: [place] [address] Electronically authenticated by: [id number] Y Date: 3:35 Dictated By: Shaheed Guadalupe M.D. Signed By:09/26/24 1338 DD/ 1335 TD/TT: Hand Developer: us Generic External Data Provider [facility] Final Result documented in this encounter Visit Diagnoses Not on filedocumented in this encounter Additional Health Concerns Assessment Noted Time PHQ-9 Depression Total Score: 8 05/18/19 24 5:00 PM EST documented as of this encounter Care Teams Process Safety Engineering Technologist Relationship Specialty Start Date End Date José Luis Roberts MD [address] [place] [address] PCP - General Family Medicine 02/02/24 Miriam Suarez DO [address] [place] [address] Referring Physician Neurology 06/29/23 Adelaida Carrion NP [address] [place] [address] Nurse Practitioner Family Medicine 01/27/24 Bong Rosado MA [address] [place] [address] Family Medicine 02/12/24 Juany Leggett PA [address] [place] [address] Physician Wharf Worker Neurology 07/26/24 documented as of this encounter
--- OUTSIDE RECORDS SUMMARY | 2024-09-29 09:37 | XMS_ITS | Encounter Summary ---
Author Organization [facility] Address [address] [place] [address] Care Team Providers Care Mophead Sewer Name Role Phone Adelaida Carrion NP Unavailable [phone] José Luis Roberts MD Primary Care Provider [phone] Miiram Suarez DO Unavailable [phone] Mathew Parra AIR FORCE PILOT Unavailable Unavailable Diana De Leon LPN Unavailable Unallocated, Noms Provider Primary Care Provi kellee Adelaida Carrion NP Unavailable [phone] José Luis Roberts MD Primary Care Provider [phone] Bong Rosado MA Unavailable [phone] Juany Leggett Unavailable Encounter Details Date [...] declined 08/16/2023 How often do you attend yazidi or faith serv ices? Never 08/16/2023 Do [...] Recorded Patient Health Questionnaire-2 Score 2 09/21/2023 [facility] [place] of Occupat ional Health - Occupational Stress [...] Visit [facility] [address] [place] [address] Adelaida Carrion NP [address] [place] [address] documented as of this encounter Procedures Procedure Name Priority Date/Time Associated Diagnosis Comments XR THORACIC SPINE 2 VIEWS 12/02/2023 2:53 PM EDT documented in this encounter Results * XR thoracic spine 2 views (12/02/2023 2:53 PM EDT) Anatomical Region Laterality Modality Spine, T-spine Radiographic Nelda ging 12/02/2023 2:53 PM EDT Narrative 12/02/2023 2:55 PM EDT [place] [id number] XRay Report Signed Patient: NASIM INGRAM MR#: [id number] : 1960 Acct:[id number] Age/Sex: 62 / F ADM Date: 12/02/23 Loc: RAD Attending Dr: Elizabeth Cano ROLL SKINNER Ordering Physician: Elizabeth Cano NP Date of Service: 12/02/23 Procedure(s): XR thoracic spine 2V Accession Number(s): [id number] cc: Adelaida Carrion ROLL SKINNER; Elizabeth Cano NP [address] [address] Patient Name: NASIM INGRAM MRN: [id number] date: 1960 Sex: F Assigned Patient Location: [facility] Current Patient Location: [facility] Accession/Order Number: [id number] Exam Date: 12/02/2023 14:10 Report Date: 12/02/2023 [...] Signed By: 12/02/23 1455 DD/ 1453 TD/TT: Foam Rubber Mixer: Procedure Note Radiology, Radiologist, MD - 12/02/2023 [place] [address] XRay Report Signed Patient: NASIM INGRAM LMR#: [id number] : 1960cct:[id number] Age/Sex: 62 / FADM Date: 12/02/23 Loc: SAHIL Attending Dr: Elizabeth Cano NP Ordering Physician: Elizabeth Cano NP Date of Service: 12/02/23 Procedure(s): XR thoracic spine 2V Accession Number(s): [id number] cc: Adelaida Carrion NP; Elizabeth Cano NP The [address] [address] Patient Name: ANSIM INGRAM MRN: [id number] date: 1960 Sex: F Assigned Patient Location: [facility] Current Patient Location: [facility] Accession/Order Number: [id number] Exam Date: 12/02/2023 14:10 Report Date: 12/02/2023 [...] M.D. Signed By:12/02/23 1455 DD/ 1453 TD/TT: Foam Rubber Mixer: us Generic External Data Provider IMG XR PROCEDURES Final Result documented in this encounter Visit Diagnoses Not on filedocumented in this encounter Additional Health Concerns Assessment Noted Time PHQ-9 Depression Total Score: 8 05/18/19 24 5:00 PM EST documented as of this encounter Care Teams Mophead Sewer Relationship Specialty Start Date End Date José Luis Roberts MD [address] [place] [address] PCP - General Family Medicine 05/18/23 01/26/24 Unallocated, Noms ProviderMD [address] [place] [address] PCP - General Family Medicine 01/27/24 02/01/24 José Luis Roberts MD [address] [place] [address] PCP - General Family Medicine 02/02/24 Adelaida Carrion NP Referring Physician Nurse Practitioner 10/14/22 Miriam Suarez DO [address] [place] [address] Referring Physician Neurology 06/29/23 Mathew Parra LPN Licensed Practical Nurse Family Medicine 07/23/23 Diana De Leon LPN [address] [place] [address] Licensed Practical Nurse Family Medicine 12/18/2302/11 Adelaida Carrion NP [address] [place] [address] Nurse Practitioner Family Medicine 01/27/24 Bong Rosado, [place] [address] [place] [address] Family Medicine 02/12/24 Juany Leggett PA [address] [place], [place] [address] Physician Transmitter Supervisor Neurology 07/26/24 documented as of this encounter
--- OUTSIDE RECORDS SUMMARY | 2024-09-29 09:37 | XMS_ITS | Encounter Summary ---
Author Organization [facility] Address [address] [place] [address] Care Team Providers Care Filing Or Registry Clerk Name Role Phone Adelaida Carrion NP Unavailable [phone] José Luis Roberts MD Primary Care Provider [phone] José Luis Roberts MD Primary Care Provider [phone] Miriam Suarez DO Unavailable [phone] [place], Ardana CORE FILER Unavailable Unavailable Aida Ardana CORE FILER Unavailable Unavailable Diana De Leon CORE FILER Unavailable Unallocated, Noms Provider Primary Care Provi kellee Adelaida Carrion NP Unavailable [phone] José Luis Roberts MD Primary Care Provider [phone] Bong Rosado MA Unavailable [phone] Juany Leggett Unavailable Encounter Details Date Type Department Care Team (Late st Contact Info) Description 03/26/2023 Clinisync Result Encounter [facility] External Department Unsolicited Adelaida Carrion NP [address] [place]é [place] [address] Social History Tobacco Use Types Packs/Day Years [...] Visit [facility] [address] [place] [address] Adelaida Carrion NP [address] [place] [address] documented as of this encounter Procedures Procedure Name Priority Date/Time Associated Diagnosis Comments XR FOOT LT MIN 3V 03/26/2023 8:1 4 AM EST documented in this encounter Results * XR FOOT LT MIN 3V (03/26/2023 8:14 AM EST) Anatomical Region Laterality Modality Other 03/26/2023 8:14 AM EST Narrative 03/26/2023 8:17 AM EST [address] [address] XRay Report Signed Patient: NASIM INGRAM MR#: [id number] : 1960 Acct:[id number] Age/Sex: 62 / F ADM Date: 03/25/23 Loc: [facility] Attending Dr: Adelaida Carrion NP Ordering Physician: Adelaida Carrion NP Date of Service: 03/25/23 Procedure(s): XR foot LT min 3V Accession Number(s): [id number] cc: Adelaida Carrion NP [address] [address] Patient Name: NASIM INGRAM MRN: [id number] date: 1960 Sex: F Assigned Patient Location: [facility] Current Patient Location: Accession/Order Number: [id number] Exam Date: 03/25/2023 15:34 Report Date: 03/26/2023 08:14 At the request of: ADELAIDA CARRION Procedure: XR foot LT min 3V PROCEDURE: XR foot LT min 3V DATE: 03/25/2023 2:34 PM SLICE CUTTING MACHINE OPERATOR HELPER COMPARISONS: None CLINICAL INDICATION: left foot [...] M.D. Signed By: 03/26/23816 DD/ 3 TD/TT: Grade Recorder: Procedure Note Radiology, Radiologist, MD - 03/26/2023 [place] [address] XRay Report Signed Patient: NASIM INGRAM LMR#: [id number] : 1960cct:[id number] Age/Sex: 62 / FADM Date: 03/25/23 Loc: RAD Attending Dr: Adelaida Carrion NP Ordering Physician: Adelaida Carrion NP Date of Service: 03/25/23 Procedure(s): XR foot LT min 3V Accession Number(s): [id number] cc: Adelaida Carrion NP The [address] [address] Patient Name: NASIM INGRAM MRN: [id number] date: 1960 Sex: F Assigned Patient Location: [facility] Current Patient Location: Accession/Order Number: [id number] Exam Date: 03/25/2023 15:34 Report Date: 03/26/2023 08:14 At the request of: ADELAIDA CARRION Procedure: XR foot LT min 3V PROCEDURE: XR foot LT min 3V DATE: 03/25/2023 2:34 PM SLICE CUTTING MACHINE OPERATOR HELPER COMPARISONS: None CLINICAL INDICATION: left foot [...] Bloom M.D. Signed By:03/26/23816 DD/ 3 TD/TT: Grade Recorder: us Adelaida Carrion SENIOR QC TECHNICIAN [facility] Final Result documented in this encounter Visit Diagnoses Not on filedocumented in this encounter Care Teams Filing Or Registry Clerk Relationship Specialty Start Date End Date José Luis Roberts MD PCP - General Family Medicine 10/14/22 05/17/23 José Luis Roberts MD [address] [place] [address] PCP - General Family Medicine 05/18/23 01/26/24 Unallocated, Noms MD Mariela [address] [place] [id number] PCP - General Family Medicine 01/27/24 02/01/24 José Luis Roberts MD [address] [place] [address] PCP - General Family Medicine 02/02/24 Adelaida Carrion NP Referring Physician Nurse Practitioner 10/14/22 Miriam Suarez DO [address] [place] [address] Referring Physician Neurology 06/29/23 Mathew Parra LPN Registered Nurse Family Medicine 07/07/23 07/08/23 Mathew Parra LPN Licensed Practical Nurse Family Medicine 07/23/23 Diana De Leon LPN [address] [facility] [place] [address] Licensed Practical Nurse Family Medicine 12/18/2302/11 Adelaida Carrion NP [address] [place] [address] Nurse Practitioner Family Medicine 01/27/24 Bong Rosado, [place] [address] [place] [address] Family Medicine 02/12/24 Juany Leggett PA [address] [place] [address] Physician Cupola Melter Helper Neurology 07/26/24 documented as of this encounter
--- OUTSIDE RECORDS SUMMARY | 2024-09-29 09:37 | XMS_ITS | Clinical Summary ---
Author Organization [employer] [facility] tem Address [id number] [address] [place] [address] Care Team Providers Care Primary Counselor Name Role Phone Adelaida Carrion APRN-CONDUCTOR YARD Primary Care Provider Medications gabapentin (NEURONTIN) 600 [...] on file Insurance [employer] MEDICARE Care Teams Primary Counselor Relationship Specialty Start Date End Date Adelaida Carrion, ROSS-CONDUCTOR YARD PCP - General Nurse Practitioner 12/10/16
--- OUTSIDE RECORDS SUMMARY | 2024-09-29 09:37 | XMS_ITS | Encounter Summary ---
Author Organization [facility] Address [address] [place] [address] Care Team Providers Care Mass Spectrometry Specialist Name Role Phone Adelaida Carrion NP Unavailable [phone] José Luis Roberts MD Primary Care Provider [phone] José Luis Roberts MD Primary Care Provider [phone] Miriam Suarez DO Unavailable [phone] [place], Ardana RESEARCH DAIRY FARM SUPERVISOR Unavailable Unavailable Fran Parradana RESEARCH DAIRY FARM SUPERVISOR Unavailable Unavailable Diana De Leon RESEARCH DAIRY FARM SUPERVISOR Unavailable Unallocated, Noms Provider Primary Care Provi kellee Adelaida Carrion IT SECURITY ARCHITECT Unavailable [phone] José Luis Roberts MD Primary Care Provider [phone] Bong Rosado MA Unavailable [phone] Juany Leggett Unavailable Encounter Details Date Type Department Care Team (Late st Contact Info) Description 01/09/2023 Abstract [facility] [address] [facility] [address] [place] [address] Travon Hines PA [address] [facility] [address] [place] [address] Social History Tobacco Use Types Packs/Day Years [...] Visit [facility] [address] [place] [address] Adelaida Carrion NP [address] [place] [address] documented as of this encounter Visit Diagnoses Not on filedocumented in this encounter Care Teams Mass Spectrometry Specialist Relationship Specialty Start Date End Date José Luis Roberts MD PCP - General Family Medicine 10/14/22 05/17/23 José Luis Roberts MD [address] [place] [address] PCP - General Family Medicine 05/18/23 01/26/24 Unallocated, Johan Sierra MD [address] [place] [address] PCP - General Family Medicine 01/27/24 02/01/24 José Luis Roberts MD [address] [place] [address] PCP - General Family Medicine 02/02/24 Adelaida Carrion NP Referring Physician Nurse Practitioner 10/14/22 Miriam Suarez DO [address] [place], [place] [address] Referring Physician Neurology 06/29/23 Mathew Parra LPN Registered Nurse Family Medicine 07/07/23 07/08/23 Mathew Parra LPN Licensed Practical Nurse Family Medicine 07/23/23 Diana De Leon LPN [address] [place] [address] Licensed Practical Nurse Family Medicine 12/18/2302/11 Adelaida Carrion NP [address] [place] [address] Nurse Practitioner Family Medicine 01/27/24 Bong Rosado, [place] [address] [place] [address] Family Medicine 02/12/24 Juany Leggett PA [address] [place] [address] Physician Orthopedics Teacher Neurology 07/26/24 documented as of this encounter
--- OUTSIDE RECORDS SUMMARY | 2024-09-29 09:37 | XMS_ITS | Encounter Summary ---
Author Organization [facility] Address [address] [place] [address] Care Team Providers Care Credit Rating Inspector Name Role Phone Miriam Suarez Unavailable [phone] Adelaida Carrion NP Unavailable [phone] José Luis Roberts MD Primary Care Provider [phone] Bong Rosado MA Unavailable [phone] Juany Leggett Unavailable Encounter Details Date Type Department Care Team (Late st Contact Info) Description 09/19/2024 Abstract [facility] [address] [place] [address] Adelaida Carrion, BRIANA [address] [place] [address] Social History Tobacco Use Types [...] How often do you attend yazidi or nondenominational serv ices? Never 08/16/2023 Do [...] Visit [facility] [address] [place] [address] Adelaida Carrion NP [address] [place] [address] documented as of this encounter Visit Diagnoses Not on filedocumented in this encounter Additional Health Concerns Assessment Noted Time PHQ-9 Depression Total Score: 8 05/18/19 24 5:00 PM EST documented as of this encounter Care Teams Credit Rating Inspector Relationship Specialty Start Date End Date José Luis Roberts MD [address] [place] [address] PCP - General Family Medicine 02/02/24 Miriam Suarez DO [address] [place] [address] Referring Physician Neurology 06/29/23 Adelaida Carrion NP [address] [place] [address] Nurse Practitioner Family Medicine 01/27/24 Bong Rosado MA [address] [place] [address] Family Medicine 02/12/24 Juany Leggett PA [address] [place] [address] Physician Coremaker Pipe Neurology 07/26/24 documented as of this encounter
--- OUTSIDE RECORDS SUMMARY | 2024-09-29 09:37 | XMS_ITS | Encounter Summary ---
Author Organization [facility] Address [address] [place] [address] Care Team Providers Care Flower Machine Operator Name Role Phone Adelaida Carrion NP Unavailable [phone] José Luis Roberts MD Primary Care Provider [phone] José Luis Roberts MD Primary Care Provider [phone] Miriam Suarez DO Unavailable [phone] [place], Ardana ATTENDING PHYSICIAN Unavailable Unavailable Aida Ardana ATTENDING PHYSICIAN Unavailable Unavailable Diana De Leon ATTENDING PHYSICIAN Unavailable Unallocated, Noms Provider Primary Care Provi kellee Adelaida Carrion CONSULTING SENIOR PRACTICE DIRECTOR Unavailable [phone] José Luis Roberts MD Primary Care Provider [phone] Bong Rosado MA Unavailable [phone] Juany Leggett Unavailable Encounter Details Date Type Department Care Team (Late st Contact Info) Description 04/08/2023 Orders Only [facility] [address] [place] [address] Adelaida Carrion CONSULTING SENIOR PRACTICE DIRECTOR [address] [place] [address] Social History Tobacco Use Types Packs/Day Years [...] Office Visit [facility] [address] [place] [address] Adelaida Carrion NP [address] [place] [address] documented as of this encounter Procedures Procedure Name Priority Date/Time Associated Diagnosis Comments MISCELLANEOUS LAB TEST Routine 03/23/2023 2:45 PM EST documented in this encounter Results * - Miscellaneous Test (03/23/2023 2:45 PM EST) Adelaida Carrion CONSULTING SENIOR PRACTICE DIRECTOR LAB BLOOD ORDERABLES Final Resu lt documented in this encounter Visit Diagnoses Not on filedocumented in this encounter Care Teams Flower Machine Operator Relationship Specialty Start Date End Date José Luis Roberts MD PCP - General Family Medicine 10/14/22 05/17/23 José Luis Roberts MD [address] [place] [address] PCP - General Family Medicine 05/18/23 01/26/24 Unallocated, Johan Sierra MD [address] [place] [address] PCP - General Family Medicine 01/27/24 02/01/24 José Luis Roberts MD [address] [place] [address] PCP - General Family Medicine 02/02/24 Adelaida Carrion NP Referring Physician Nurse Practitioner 10/14/22 Miriam Suarez DO [address] [place], [place] [address] Referring Physician Neurology 06/29/23 Mathew Parra LPN Registered Nurse Family Medicine 07/07/23 07/08/23 Mathew Parra LPN Licensed Practical Nurse Family Medicine 07/23/23 [place] [address] [place] [address] Licensed Practical Nurse Family Medicine 12/18/2302/11 Adelaida Carrion NP [address] [place] [address] Nurse Practitioner Family Medicine 01/27/24 Bong Rosado, [place] [address] [place] [address] Family Medicine 02/12/24 Juany Leggett PA [address] [place], [place] [address] Physician Beef Specialist Neurology 07/26/24 documented as of this encounter
--- OUTSIDE RECORDS SUMMARY | 2024-09-29 09:37 | XMS_ITS | Encounter Summary ---
Author Organization [facility] Address [address] [place] [address] Care Team Providers Care Cable Puller Name Role Phone Adelaida Carrion NP Unavailable [phone] José Luis Roberts MD Primary Care Provider Miriam Suarez DO Unavailable [phone] Mathew Parra PETROLEUM ENGINEER Unavailable Unavailable Mathew Parra PETROLEUM ENGINEER Unavailable Unavailable Diana De Leon PETROLEUM ENGINEER Unavailable Unallocated, Noms Provider Primary Care Provi kellee Adelaida Carrion NP Unavailable [phone] José Luis Roberts MD Primary Care Provider [phone] Bong Rosado MA Unavailable [phone] Juany Leggett Unavailable Encounter Details Date Type Department Care Team (Late st Contact Info) Description 05/19/2023 Clinisync Result Encounter [facility] External Department Unsolicited Adelaida Carrion NP [address] [place] [address] Social History Tobacco Use Types Packs/Day Years [...] Never 05/18/2023 How often do you attend holiness or taoist serv ices? Never 05/18/2023 Do you belong to any clubs o r organizations such as holiness groups, unions, fraternal or athletic groups, or [...] Recorded Patient Health Questionnaire-2 Score 1 05/18/2023 [facility] Questionnaire [...] slept in a jail (including now)? No 05/18/2023 Comments Unknown Sex [...] Visit [facility] [address] [place] [address] Adelaida Carrion NP [address] [place] [address] documented as of this encounter Procedures Procedure Name Priority Date/Time Associated Diagnosis Comments XR HIP LT MIN 2V 05/19/2023 9:31 AM EST documented in this encounter Results * XR HIP LT MIN 2V (05/19/2023 9:31 AM EST) Anatomical Region Laterality Modality Other 05/19/2023 9:31 AM EST Narrative 05/19/2023 9:34 AM EST [address] [address] XRay Report Signed Patient: NASIM BE MR#: [id number] : 1960 Acct:[id number] Age/Sex: 62 / F ADM Date: 05/19/23 Loc: RAD Attending Dr: Adelaida Carrion DYNAMITE SHOOTER Ordering Physician: Adelaida Carrion NP Date of Service: 05/19/23 Procedure(s): XR hip LT min 2V Accession Number(s): [id number] cc: Adelaida Carrion NP [address] [address] Patient Name: NASIM BE MRN: [id number] date: 1960 Sex: F Assigned Patient Location: [facility] Current Patient Location: RAD Accession/Order Number: [id number] Exam Date: 05/19/2023 07:50 Report Date: 05/19/2023 [...] Signed By: 05/19/2334 DD/ 0 TD/TT: Director Geophysical Laboratory: Procedure Note Radiology, Radiologist, - 05/19/2023 [place] [address] XRay Report Signed Patient: NASIM BE LMR#: [id number] : 1960cct:[id number] Age/Sex: 62 / FADM Date: 05/19/23 Loc: RAD Attending Dr: Adelaida Carrion DYNAMITE SHOOTER Ordering Physician: Adelaida Carrion NP Date of Service: 05/19/23 Procedure(s): XR hip LT min 2V Accession Number(s): [id number] cc: Adelaida Carrion NP The [place] [address] Patient Name: NASIM BE MRN: [id number] date: 1960 Sex: F Assigned Patient Location: [facility] Current Patient Location: [facility] Accession/Order Number: [id number] Exam Date: 05/19/2023 07:50 Report Date: 05/19/2023 [...] M.D. Signed By:05/19/2334 DD/ 0 TD/TT: Director Geophysical Laboratory: us Adelaida Carrion NP [facility] Final Result documented in this encounter Visit Diagnoses Not on filedocumented in this encounter Additional Health Concerns Assessment Noted Time PHQ-9 Depression Total Score: 8 05/18/19 24 5:00 PM EST documented as of this encounter Care Teams Cable Puller Relationship Specialty Start Date End Date José Luis Roberts MD [address] [place] [address] PCP - General Family Medicine 05/18/23 01/26/24 Unallocated, Johan Sierra MD [address] [place] [address] PCP - General Family Medicine 01/27/24 02/01/24 José Luis Roberts MD [address] [place] [address] PCP - General Family Medicine 02/02/24 Adelaida Carrion NP Referring Physician Nurse Practitioner 10/14/22 Miriam Suarez DO [address] [place] [address] Referring Physician Neurology 06/29/23 Mathew Parra LPN Registered Nurse Family Medicine 07/07/23 07/08/23 Mathew Parra LPN Licensed Practical Nurse Family Medicine 07/23/23 Diana De Leon LPN [address] [place] [address] Licensed Practical Nurse Family Medicine 12/18/2302/11 Adelaida Carrion NP [address] [place] [address] Nurse Practitioner Family Medicine 01/27/24 Bong Rosado MA [address] [place] [address] Family Medicine 02/12/24 Juany Leggett PA [address] [place] [address] Physician Slubber Machine Operator Neurology 07/26/24 documented as of this encounter
--- OUTSIDE RECORDS SUMMARY | 2024-09-29 09:37 | XMS_ITS | Encounter Summary ---
Author Organization [facility] Address [address] [place] [address] Care Team Providers Care Credentials Specialist Name Role Phone Adelaida Carrion NP Unavailable [phone] José Luis Roberts MD Primary Care Provider [phone] Miriam Suarez DO Unavailable [phone] Mathew Parra STAVE CUTTER Unavailable Unavailable Diana eD Leon STAVE CUTTER Unavailable Unallocated, Noms Provider Primary Care Provi kellee Adelaida Carrion NP Unavailable [phone] José Luis Roberts MD Primary Care Provider [phone] Bong Rosado MA Unavailable [phone] Juany Leggett Unavailable Encounter Details Date Type Department Care Team (Late st Contact Info) Description 08/25/2023 Orders Only [facility] [address] [place] [address] Adelaida Carrion NP [address] [place] [address] Social History Tobacco Use Types [...] declined 08/16/2023 How often do you attend mandaen or zoroastrianism serv ices? Never 08/16/2023 Do you belong [...] Recorded Patient Health Questionnaire-2 Score 0 08/17/2023 [facility] - [...] Visit [facility] [address] [place] [address] Adelaida Carrion, BRIANA [address] [place] [address] documented as of this encounter Procedures Procedure Name Priority Date/Time Associated Diagnosis Comments ELECTROCARDIOGRAM REPORT Routine 024 8:39 AM EDT documented in this encounter Results * Electrocardiogram Report (08/24/2023 8:39 AM EDT) us Adelaida Carrion MORNING NEWS PRODUCER IN CLINIC/BEDSIDE ORDERABLES Fi nal Result documented in this encounter Visit Diagnoses Not on filedocumented in this encounter Additional Health Concerns Assessment Noted Time PHQ-9 Depression Total Score: 8 05/18/19 24 5:00 PM EST documented as of this encounter Care Teams Credentials Specialist Relationship Specialty Start Date End Date José Luis Roberts MD [address] [place] [address] PCP - General Family Medicine 05/18/23 01/26/24 Unallocated, Johan Sierra MD [address] [place] [address] PCP - General Family Medicine 01/27/24 02/01/24 José Luis Roberts MD [address] [place] [address] PCP - General Family Medicine 02/02/24 Adelaida Carrion NP Referring Physician Nurse Practitioner 10/14/22 Miriam Suarez DO [address] [place], [place] [address] Referring Physician Neurology 06/29/23 Mathew Parra LPN Licensed Practical Nurse Family Medicine 07/23/23 Diana De Leon LPN [address] [place] [address] Licensed Practical Nurse Family Medicine 12/18/2302/11 Adelaida Carrion NP [address] [place] [place] [address] Nurse Practitioner Family Medicine 01/27/24 Bong Rosado, [place] [address] [place] [address] Family Medicine 02/12/24 Juany Leggett PA [address] [place] [address] Physician Retail Client Solutions Consultant Neurology 07/26/24 documented as of this encounter
--- OUTSIDE RECORDS SUMMARY | 2024-09-29 09:37 | XMS_ITS | Encounter Summary ---
Author Organization [facility] Address [address] [place] [address] Care Team Providers Care Creative Resource Manager Name Role Phone Miriam Suarez DO Unavailable [phone] Adelaida Carrion NP Unavailable [phone] José Luis Roberts MD Primary Care Provider Bong Rosado MA Unavailable [phone] Juany Leggett Unavailable Encounter Details Date Type Department Care Team (Late st Contact Info) Description 09/21/2024 Patient Outreach [facility] [address] [place] [address] Bong Rosado MA [address] [place] [address] Social History Tobacco Use Types Packs/Day Years [...] declined 08/16/2023 How often do you attend voodoo or worship serv ices? Never 08/16/2023 Do you belong to any clubs o r organizations such as voodoo groups, unions, fraternal or athletic groups, or [...] [email or web address] [place] Group therapy is really helping, she said. [...] handicap placard as it expires in January. Residential Building Inspector added request to appt info for pt [...] Office Visit [facility] [address] [place] [address] Adelaida Carrion NP [address] [place] [address] documented as of this encounter Visit Diagnoses Diagnosis Primary hypertension- Primary Unspecified essential hypertension Bipolar disorder with severe depression (HCC) documented in this encounter Additional Health Concerns Assessment Noted Time PHQ-9 Depression Total Score: 8 05/18/19 24 5:00 PM EST documented as of this encounter Care Teams Creative Resource Manager Relationship Specialty Start Date End Date José Luis Roberts MD [address] [place] [address] PCP - General Family Medicine 02/02/24 Miriam Suarez DO [address] [place] [address] Referring Physician Neurology 06/29/23 Adelaida Carrion NP [address] [place] [address] Nurse Practitioner Family Medicine 01/27/24 Bong Rosado MA [address] [place] [address] Family Medicine 02/12/24 Juany Leggett PA [address] [place] [address] Physician Furnace Converter Neurology 07/26/24 documented as of this encounter
--- OUTSIDE RECORDS SUMMARY | 2024-09-29 09:37 | XMS_ITS | Encounter Summary ---
Author Organization [facility] Address [address] [place] [address] Care Team Providers Care Upsetter Helper Name Role Phone Adelaida Carrion NP Unavailable [phone] José Luis Roberts MD Primary Care Provider [phone] Miriam Suarez DO Unavailable [phone] Mathew Parra FLAP MAKER Unavailable Unavailable Diana De Leon LPN Unavailable Unallocated, Noms Provider Primary Care Provi kellee Adelaida Carrion NP Unavailable [phone] José Luis Roberts MD Primary Care Provider [phone] Bong Rosado MA Unavailable [phone] Juany Leggett Unavailable Encounter Details Date Type Department Care Team (Late st Contact Info) Description 12/02/2023 Orders Only [facility] [address] [place] [address] Bhakti Culp NP [address] [place] [address] Social History Tobacco Use Types [...] declined 08/16/2023 How often do you attend zoroastrianism or mandaen serv ices? Never 08/16/2023 Do you belong to any clubs o r organizations such as zoroastrianism groups, unions, fraternal or athletic groups, or [...] Recorded Patient Health Questionnaire-2 Score 2 09/21/2023 [facility] - Occupational [...] Office Visit [facility] [address] [place] [address] Adelaida Carrion NP [address] [place] [address] documented as of this encounter Procedures Procedure [...] documented as of this encounter Care Teams Upsetter Helper Relationship Specialty Start Date End Date José Luis Roberts MD [address] [place] [address] PCP - General Family Medicine 05/18/23 01/26/24 Unallocated, Johan Sierra MD [address] [place] [address] PCP - General Family Medicine 01/27/24 02/01/24 José Luis Roberts MD [address] [place] [address] PCP - General Family Medicine 02/02/24 Adelaida Carrion NP Referring Physician Nurse Practitioner 10/14/22 Miriam Suarez DO [address] [place], [place] [address] Referring Physician Neurology 06/29/23 Mathew Parra LPN Licensed Practical Nurse Family Medicine 07/23/23 Diana De Leon LPN [address] [place] [address] Licensed Practical Nurse Family Medicine 12/18/2302/11 Adelaida Carrion NP [address] [place] [address] Nurse Practitioner Family Medicine 01/27/24 Bong Rosado MA [address] [place] [address] Family Medicine 02/12/24 Juany Leggett PA [address] [place] [address] Physician Loan Processor Neurology 07/26/24 documented as of this encounter
--- OUTSIDE RECORDS SUMMARY | 2024-09-29 09:37 | XMS_ITS | Encounter Summary ---
Author Organization [facility] Address [address] [place] [address] Care Team Providers Care Welding Machine Operator Submerged Arc Name Role Phone Adelaida Carrion NP Unavailable [phone] José Luis Roberts MD Primary Care Provider Miriam Suarez DO Unavailable [phone] Diana De Leon LPN Unavailable Unallocated, Noms Provider Primary Care Provi kellee Adelaida Carrion NP Unavailable [phone] José Luis Roberts MD Primary Care Provider Bong Rosado MA Unavailable [phone] Juany Leggett Unavailable Encounter Details Date Type Department Care Team (Late st Contact Info) Description 01/21/2024 Orders Only [facility] [address] [place] [address] Adelaida Carrion NP [address] [place] [address] Social History Tobacco Use Types [...] declined 08/16/2023 How often do you attend advent or baptism serv ices? Never 08/16/2023 Do you belong to any clubs o r organizations such as advent groups, unions, fraternal or athletic groups, or [...] Recorded Patient Health Questionnaire-2 Score 2 09/21/2023 [facility] - [...] Visit [facility] [address] [place] [address] Adelaida Carrion, BRIANA [address] [place] [address] documented as of this encounter Procedures Procedure Name Priority Date/Time Associated Diagnosis Comments CT HEAD OR BRAIN W/ & W/O CONTRAST Routine 01/21/2024 9:10 AM EDT documented in this encounter Results * CT HEAD OR BRAIN W/ & W/O CONTRAST (01/21/2024 9:10 AM EDT) Anatomical Region Laterality Modality Radiographic Nelda ging us Adelaida Carrion PARTICIPANT ADMINISTRATOR IMG XR PROCEDURES Final Result documented in this encounter Visit Diagnoses Not on filedocumented in this encounter Additional Health Concerns Assessment Noted Time PHQ-9 Depression Total Score: 8 05/18/19 24 5:00 PM EST documented as of this encounter Care Teams Welding Machine Operator Submerged Arc Relationship Specialty Start Date End Date José Luis Roberts MD [address] [place] [address] PCP - General Family Medicine 05/18/23 01/26/24 Unallocated, Johan Sierra MD [address] [place] [address] PCP - General Family Medicine 01/27/24 02/01/24 José Luis Roberts MD [address] [place] [address] PCP - General Family Medicine 02/02/24 Adelaida Carrion NP Referring Physician Nurse Practitioner 10/14/22 Miriam Suarez DO [address] [place], [place] [address] Referring Physician Neurology 06/29/23 Diana De Leon LPN [address] [place] [address] Licensed Practical Nurse Family Medicine 12/18/2302/11 Adelaida Carrion NP [address] [place] [address] Nurse Practitioner Family Medicine 01/27/24 Bong Rosado, [place] [address] [place] [address] Family Medicine 02/12/24 Juany Leggett PA [address] [place], [place] [address] Physician Winter Sports Manager Neurology 07/26/24 documented as of this encounter
--- OUTSIDE RECORDS SUMMARY | 2024-09-29 09:37 | XMS_ITS | Encounter Summary ---
Author Organization [facility] Address [address] [place] [address] Care Team Providers Care Reticle Printer Name Role Phone Adelaida Carrion NP Unavailable [phone] José Luis Roberts MD Primary Care Provider [phone] José Luis Roberts MD Primary Care Provider [phone] Miriam Suarez DO Unavailable [phone] [place], [place] INVENTORY CONTROL/SHIPPING RECEIVING Unavailable Unavailable Fran Parradana INVENTORY CONTROL/SHIPPING RECEIVING Unavailable Unavailable Diana De Leon INVENTORY CONTROL/SHIPPING RECEIVING Unavailable Unallocated, Noms Provider Primary Care Provi kellee Adelaida Carrion PHLEBOTOMY DIRECTOR Unavailable [phone] José Luis Roberts MD Primary Care Provider [phone] Bong Rosado MA Unavailable [phone] Juany Leggett Unavailable Encounter Details Date Type Department Care Team (Late st Contact Info) Description 11/14/2022 Abstract [facility] [address] [facility] [address] [place] [address] Travon Hines PA 112 [facility] [address] [place] [address] Social History Tobacco Use Types Packs/Day Years [...] Office Visit [facility] [address] [place] [address] Adelaida Carrion NP [address] [place] [address] documented as of this encounter Visit Diagnoses Not on filedocumented in this encounter Care Teams Reticle Printer Relationship Specialty Start Date End Date José Luis Roberts MD PCP - General Family Medicine 10/14/22 05/17/23 José Luis Roberts MD [address] [place] [address] PCP - General Family Medicine 05/18/23 01/26/24 Unallocated, Johan Sierra MD [address] [place] [address] PCP - General Family Medicine 01/27/24 02/01/24 José Luis Roberts MD [address] [place] [address] PCP - General Family Medicine 02/02/24 Adelaida Carrion NP Referring Physician Nurse Practitioner 10/14/22 Miriam Suarez DO [address] [place], [place] [address] Referring Physician Neurology 06/29/23 Mathew Parra LPN Registered Nurse Family Medicine 07/07/23 07/08/23 Mathew Parra LPN Licensed Practical Nurse Family Medicine 07/23/23 Diana De Leon LPN [address] [place] [address] Licensed Practical Nurse Family Medicine 12/18/2302/11 Adelaida Carrion NP [address] [place] [address] Nurse Practitioner Family Medicine 01/27/24 Bong Rosado, [place] [address] [place] [address] Family Medicine 02/12/24 Juany Leggett PA [address] [place] [address] Physician Diesel Tractor Operator Neurology 07/26/24 documented as of this encounter
--- NOTE | 2024-09-29 09:44 | PM.CN ---
Consult Note: HPI Data of Consult Patient: known to practice within the last 3 years Requesting Physician: Bhakti Culp NP Primary Care Provider: Adelaida Carrion NP Consult Narrative Reason for consult: f/u Narrative: Nasim Ingram a 63 year old female with longstanding low back pain and bilateral hip pain. has engaged in provider guided HEP > 6 weeks without benefit, failed tylenol heat and ice, cannot utilize NSAIDs with hx of gastric bypass. currently utilizing gabapentin, tizanidine, duloxetine with mild benefit, denies side effects. recently underwent right suprascapular/axillary RFA with >90% improvement in shoulder pain, reports pain 0/10. continues to note moderate to severe hip pain, recently underwent left SIJ injection with mild to moderate relief. pain today 3/10 increasing to 8/10. cc:: CC: Bhakti Culp NP Review of Systems ROS Status of ROS 10 or more systems reviewed and unremarkable except as noted in history and below Musculoskeletal Reports: back pain and joint pain PFSH PFS Medical History FH: bariatric surgery ?Z84.89 - Family history of other specified conditions (ICD-10) Upper back pain ?M54.9 - Dorsalgia, unspecified (ICD-10) Osteoarthritis ?M19.90 - Unspecified osteoarthritis, unspecified site (ICD-10) Neck pain ?M54.2 - Cervicalgia (ICD-10) Low back pain ?M54.50 - Low back pain, unspecified (ICD-10) Fibromyalgia ?M79.7 - Fibromyalgia (ICD-10) Bipolar 1 disorder ?F31.9 - Bipolar disorder, unspecified (ICD-10) Acid reflux ?K21.9 - Gastro-esophageal reflux disease without esophagitis (ICD-10) Obesity ?E66.9 - Obesity, unspecified (ICD-10) Sleep apnea ?G47.30 - Sleep apnea, unspecified (ICD-10) Heart murmur ?R01.1 - Cardiac murmur, unspecified (ICD-10) High cholesterol ?E78.00 - Pure hypercholesterolemia, unspecified (ICD-10) Hypertension ?I10 - Essential (primary) hypertension (ICD-10) Surgical History S/P dilatation and curettage ?Z98.890 - Other specified postprocedural states (ICD-10) H/O breast biopsy ?Z98.890 - Other specified postprocedural states (ICD-10) S/P ORIF (open reduction internal fixation) fracture ?Z98.890 - Other specified postprocedural states (ICD-10) ?Z87.81 - Personal history of (healed) traumatic fracture (ICD-10) Hx of laparoscopic gastric banding ?Z98.84 - Bariatric surgery status (ICD-10) History of tonsillectomy and adenoidectomy ?Z90.89 - Acquired absence of other organs (ICD-10) History of appendectomy ?Z90.49 - Acquired absence of other specified parts of digestive tract (ICD-10) History of hemilaminectomy ?Z98.890 - Other specified postprocedural states (ICD-10) History of cholecystectomy ?Z90.49 - Acquired absence of other specified parts of digestive tract (ICD-10) Previous section ?Z98.891 - History of uterine scar from previous surgery (ICD-10) Social History Smoking status: Former smoker Little interest or pleasure in doing things: several days Feeling down, depressed, or hopeless: several days Meds Home Medications and Allergies Home Medications ?Medication ?Instructions ?Recorded ?Confirmed ?Type amlodipine 10 mg tablet (Norvasc) 10 mg PO DAILY 09/10/22 09/19/24 History biotin 1 mg capsule 5 mg PO DAILY 09/10/22 09/19/24 History cariprazine 4.5 mg capsule 4.5 mg PO Q24H 09/10/22 09/19/24 History (Vraylar) duloxetine 60 mg capsule,delayed 60 mg PO BID 09/10/22 09/19/24 History release ferrous sulfate 325 mg (65 mg 325 mg PO BID 09/10/22 09/19/24 History iron) tablet (FeroSul) losartan 50 mg tablet (Cozaar) 100 mg PO DAILY 09/10/22 09/19/24 History magnesium 200 mg tablet 400 mg PO QDAY 09/10/22 09/19/24 History melatonin 12 mg tablet 12 mg PO .HS PRN sleep 09/10/22 09/19/24 History omeprazole 20 mg capsule,delayed 20 mg PO QDAY 09/10/22 09/19/24 History release ropinirole 4 mg tablet 4 mg PO QDAY 09/10/22 09/19/24 History trazodone 150 mg tablet 150 mg PO .HS 09/10/22 09/19/24 History tizanidine 2 mg tablet 2 mg PO TID PRN muscle spasticity 10/01/23 09/19/24 Rx #90 tabs fluticasone propionate 50 1 spray intranasal DAILY PRN 10/20/23 09/19/24 History mcg/actuation nasal allergy symptoms spray,suspension (Flonase Allergy Relief) spironolactone 50 mg tablet 50 mg PO DAILY 10/20/23 09/19/24 History gabapentin 300 mg capsule 300 mg PO BID 11/03/23 09/19/24 History calcium citrate 200 mg PO QID 11/04/23 09/19/24 History carvedilol 12.5 mg tablet 12.5 mg PO Q12H 11/04/23 09/19/24 History multivitamin 1 tab PO DAILY 11/04/23 09/19/24 History fexofenadine 60 mg tablet (Naida 60 mg PO BID 08/08/24 09/19/24 History Allergy) Allergies Allergy/AdvReac Type Severity Reaction Status Date / Time levetiracetam (From Keppra) Allergy Severe Unknown Verified 09/19/24 08:16 adhesive Allergy Intermediate Blister Verified 09/19/24 08:16 Penicillins Allergy Intermediate Unknown Verified 09/19/24 08:16 tetracycline Allergy Intermediate Unknown Verified 09/19/24 08:16 eszopiclone (From Lunesta) Allergy Unknown Verified 09/19/24 08:16 milnacipran (From Savella) AdvReac Intermediate Agitated Verified 09/19/24 08:16 prochlorperazine (From AdvReac Intermediate Agitated Verified 09/19/24 08:16 Compazine) Exam Constitutional Documenting provider has reviewed patient's vital signs: yes Common normals: no apparent distress, oriented x3, healthy appearing, alert and well nourished General appearance: cooperative [facility] Common normals: normocephalic, hearing grossly normal bilaterally and moist oral mucous membranes Head and scalp: normocephalic Eye Common normals: PERRL Pupil: PERRL Neck & C-Spine Common normals: full ROM General: normal visual inspection Chest Common normals: inspection of chest normal Respiratory Common normals: normal respiratory effort, no retractions and no use of accessory muscles Back & Pelvis Lumbar spine/lower back: ROM limited, pain with ROM, lumbar spinal tenderness and straight leg raise negative bilaterally Sacroiliac joints: SI joint(s) abnormal Other: left > right positive autumn(patricks), gaenslens, thigh thrust, compression test moderate tenderness of bilateral GTB mild pain of left hip with internal rotation. no pain with internal/external rotation of right hip Neuro Common normals: oriented x3 Sensorium/orientation: alert Psych Common normals: mental status grossly normal, thought process normal, cooperative, affect normal, speech normal and activity/motor behavior normal Speech: normal speech Thought process: normal thought process Results Additional Findings Additional findings: If on a controlled substance or opioids, I have checked an [place]AR[place] report on this patient and there are no aberrancies noted in the prescribing history.??If on a controlled substance or opioid a drug screen was completed and reviewed within the last year, and if there has not been a drug screen completed we ordered one today to monitor higher risk, state monitored pain medication use. As part of providing excellent, safe, comprehensive care, the following was completed at our patient's visit: 1. A medication reconciliation and review to ensure accurate knowledge of current/active medications, including asking our patients to inform us about any urnw-nnh-vskrnea medications or herbal remedies/nutritional supplements/alternative remedies. 2. A review to specifically ensure our patients have had annual screening for screening for depression, screening for tobacco use, and screening for unhealthy alcohol use. For concerning screenings had a discussion with the patient, provided patient education, and recommended follow-up with primary care provider when appropriate. If patient noted with a risk of falling, they received education on strength, gait, and balance training to prevent future risk of falling. Portions of this note may have been carried over from the previous visit and updated as appropriate. Please note this office utilizes paper charting in addition to the electronic medical record. A list of current medications, vitals, and PMH is available there as the clinical staff outside of myself do not have access to [employer] charting during the clinic day operations. As part of providing quality comprehensive care the current medications, vitals, and PMH were reviewed in the paper chart. Assessment and Plan Assessment and Plan (1) Greater trochanteric bursitis of both hips: (2) Chronic hip pain, bilateral: (3) Sacroiliitis: Plan proceed with bilateral GTB injection with Dr Mancuso update bilateral hip xray to assess chronic pain, pt reports history of OA continue HEP as tolerated continue current medications f/u after injection
== END 2024-09-29 09:34 | disposition home or self-care (01) ==
LOC: PM 09:34
PROVIDERS: PCP Nurse Practitioner; Visit Provider Nurse Practitioner
DX: M25.551 Pain in right hip (principal); M25.552 Pain in left hip; G89.29 Other chronic pain; M46.1 Sacroiliitis, not elsewhere classified; M70.62 Trochanteric bursitis, left hip; M70.61 Trochanteric bursitis, right hip
CPT/HCPCS: 73522; G0463

== ENCOUNTER 2024-09-29 10:20 | Outpatient (OUT) | payer MEDICARE, SELFPAY ==
--- OUTSIDE RECORDS SUMMARY | 2020-04-11 07:00 | XMS_ITS | Continuity of Care Document ---
Author Organization [facility] Address [address] [place] [address] [place] [address] Phone Care Team Providers Care Private Pilot Name Role Phone Kayce Chanel CNP Unavailable [...] Copied on Encounter OFFICE/OUTPAT IENT VISIT, EST [facility], [address] [place] [address], [id number], [place] tel:[phone] [facility] No Information Darío Devries. [address] [place] [address], [id number], [place]. tel:[phone] Referring Provider: Kayce Chanel, [address] [place] [address] 222, [place], [address] . tel:[phone] [facility], [address] [place] [address] B, [place], [place], [id number], [place] tel:[phone] [facility] No Information Darío Devries. [address], [place], [place], [address], [place]. tel:[phone] Referring Provider: Kayce Chanel, [address] [place] [address] [address], [place], [address] . tel:[phone] [facility], [address] [place] [address] [address], [place], [place], [address], [place] tel:[phone] [facility] No Information Darío Devries. [facility] [address] [facility] [address], [place], [place], [address], [place]. tel:[phone] Referring Provider: Kayce Chanel, [address] [place] [address] [address], [place], [address] . tel:[phone] [facility], [address] [place] [address] [address], [place], [place], [address], [place] tel:[phone] [facility] No Information Darío Devries. [facility] [address] [facility] [address], [place], [place], [address], [place]. tel:[phone] Referring Provider: Kayce Chanel, [facility] [address], [place], [address] . tel:[phone] [facility], [address] [place] [address] [address], [place], [place], [address], [place] tel:[phone] [facility] No Information Darío Devries. [address] [place] [address] [address], [facility] [place], [id number], [place]. tel:[phone] Referring Provider: Kayce Chanel, [address] [place] [address] [address], [facility] [place], [address] . tel:[phone] [facility], [address] [place] [address] [address], [place], [place], [address], [place] tel:[phone] [facility] No Information Yulia Anguiano. [address] [facility] [address], [place], [place], [address], [place]. tel:[phone] Referring Provider: Silvio Acevedo, [address] [facility] [address], [place], [address] . tel:[phone] OFFICE/OUTPAT IENT VISIT, [facility], [address] [place] [address] [address], [place], [place], [address], [place] tel:[phone] [facility] No Information Yulia Anguiano. [address] [facility] [address], [place], [place], [address], [place]. tel:[phone] Referring Provider: Silvio Acevedo, [address] [facility] [address], [place], [address] . tel:[phone] [facility], [address] [place] [address] [address], [place], [place], [address], [place] tel:[phone] [facility] No Information No Information OFFICE/OUTPAT IENT VISIT, [facility], [address] [place] [address] [address], [place], [place], [address], [place] tel:[phone] [facility] No Information Yulia Anguiano. [address] [facility] [address], [place], [place], [address], [place]. tel:[phone] Referring Provider: Slivio Acevedo, [address] [facility] [address], [place], [address] . tel:[phone] OFFICE/OUTPAT IENT VISIT, [facility], [address] [place] [address] [address], [place], [place], [address], [place] tel:[phone] [facility] No Information Yulia Anguiano. [address] [facility] [address], [place], [place], [address], [place]. tel:[phone] Referring Provider: Silvio Acevedo, [address] [facility] [address], [place], [address] . tel:[phone] OFFICE/OUTPAT IENT VISIT, [facility], [address] [facility] [address], [place], [place], [address], [place] tel:[phone] [facility] No Information Yulia Anguiano. [address] [place] [address] [address], [place], [place], [address], [place]. tel:[phone] Referring Provider: Silvio Acevedo, [address] [place] [address] [address], [place], [address] . tel:[phone] Family History Family Member Type Diagnosis Age At Onset No Information Payers Payer name Insurance type Covered democrat ID Authorgerard thakur(s) [facility] Medicare Solutions [id number] Social History Type Description Quantity Date Captured [...]
--- OUTSIDE RECORDS SUMMARY | 2024-09-29 10:27 | XMS_ITS | Encounter Summary ---
Author Organization [facility] Address [address] [place] [address] Care Team Providers Care It Teacher Name Role Phone Miriam Suarez DO Unavailable [phone] Adelaida Carrion NP Unavailable [phone] José Luis Roberts MD Primary Care Provider [phone] Bong Rosado MA Unavailable [phone] Juany Leggett Unavailable Encounter Details Date Type Department Care Team (Late st Contact Info) Description 03/08/2024 Orders Only [facility] [address] [place] [address] Dennis Steel DO Social History [...] How often do you attend alevism or catholic serv ices? Never 08/16/2023 Do you belong [...] Recorded Patient Health Questionnaire-2 Score 2 09/21/2023 [facility] - Occupational Stress [...] Visit [facility] [address] [place] [address] Adelaida Carrion NP [address] [place] [address] documented as of this encounter Procedures Procedure [...] documented as of this encounter Care Teams It Teacher Relationship Specialty Start Date End Date José Luis Roberts MD [address] [place] [address] PCP - General Family Medicine 02/02/24 Miriam Suarez DO [address] [place] [address] Referring Physician Neurology 06/29/23 Adelaida Carrion NP [address] [place] [address] Nurse Practitioner Family Medicine 01/27/24 Bong Rosado MA [address] [place] [address] Family Medicine 02/12/24 Juany Leggett PA [address] [place], [place] [address] Physician Cloth Mercerizer Operator Neurology 07/26/24 documented as of this encounter
--- OUTSIDE RECORDS SUMMARY | 2024-09-29 10:27 | XMS_ITS | Encounter Summary ---
Author Organization [facility] Address [address] [place] [address] Care Team Providers Care Egg Buyer Name Role Phone Miriam Suarez DO Unavailable [phone] Adelaida Carrion NP Unavailable [phone] José Luis Roberts MD Primary Care Provider Bong Rosado MA Unavailable [phone] Juany Leggett Unavailable Encounter Details Date Type Department Care Team (Late st Contact Info) Description 08/08/2024 Abstract [facility] [address] [place] [address] José Luis Roberts MD [address] [place] [address] Social History Tobacco Use Types Packs/Day Years [...] declined 08/16/2023 How often do you attend jehovah's witness or scientologist serv ices? Never 08/16/2023 Do you belong to any clubs o r organizations such as jehovah's witness groups, unions, fraternal or athletic groups, or [...] Recorded Patient Health Questionnaire-2 Score 2 09/21/[address] [facility] - [facility]ational Stress [...] [facility] [address] [place] [address] Adelaida Carrion NP [address] [place] [address] documented as of this encounter Visit Diagnoses Not on filedocumented in this encounter Additional Health Concerns Assessment Noted Time PHQ-9 Depression Total Score: 8 05/18/19 24 5:00 PM EST documented as of this encounter Care Teams Egg Buyer Relationship Specialty Start Date End Date José Luis Roberts MD [address] [place] [address] PCP - General Family Medicine 02/02/24 Miriam Suarez DO [address] [place] [address] Referring Physician Neurology 06/29/23 Adelaida Carrion NP [address] [place] [address] Nurse Practitioner Family Medicine 01/27/24 Bong Rosado MA [address] [place] [address] Family Medicine 02/12/24 Juany Leggett PA [address] [place] [address] Physician Executive Vice President And Chief Financial Officer Neurology 07/26/24 documented as of this encounter
--- OUTSIDE RECORDS SUMMARY | 2024-09-29 10:27 | XMS_ITS | Encounter Summary ---
Author Organization [facility] Address [address] [place] [address] Care Team Providers Care Wrapper Layer Name Role Phone Daniela Miriam GRAHAM Unavailable [phone] Adelaida Carrion NP Unavailable [phone] José Luis Roberts MD Primary Care Provider Bong Rosado MA Unavailable [phone] Juany Leggett Unavailable Encounter Details Date Type Department Care Team (Late st Contact Info) Description 09/26/2024 Clinisync Result Encounter [facility] External Department Unsolicited Adelaida Carrion, BRIANA [address] [place] [address] Social History Tobacco Use Types Packs/Day Years [...] How often do you attend moravian or hinduism serv ices? Never 08/16/2023 Do [...] Visit [facility] [address] [place] [address] Adelaida Carrion NP [address] [place] [address] documented as of this encounter Procedures Procedure Name Priority Date/Time Associated Diagnosis Comments MM TOMOSYNTHESIS SCREENING BI 09/26/2024 4:42 PM EDT documented in this encounter Results * MM TOMOSYNTHESIS SCREENING BI (09/26/2024 4:42 PM EDT) Anatomical Region Laterality Modality Other 09/26/2024 4:42 PM EDT Narrative 09/26/2024 4:43 [place] [address] Mammography Report Signed Patient: NASIM INGRAM MR#: [id number] : 1960 Acct:[id number] Age/Sex: 63 / F ADM Date: 09/26/24 Loc: MAMMO Attending Dr: Adelaida Carrion NP Ordering Physician: Adelaida Carrion NP Results: Date of Service: 09/26/24 Follow Up: Procedure(s): MM tomosynthesis screening BI Accession Number(s): [id number] cc: Adelaida Carrion NP Patient Name: NASIM INGRAM MR#: [id number] : 1960 Exam Date: 09/26/2024 Ordering Doctor: [...] Treatments None Family Cancers None LOCATION: The [facility] BREAST COMPOSITION: There are scattered [...] M.D. Signed By: 09/26/241642 DD/ 41 TD/TT: Oil Pipe Inspector: Procedure Note Radiology, Radiologist, MD - 09/26/2024 [place] [address] Mammography Report Signed Patient: NASIM INGRAM LMR#: [id number] : 1960cct:[id number] Age/Sex: 63 / FADM Date: 09/26/24 Loc: MAMMO Attending Dr: Adelaida Carrion NP Ordering Physician: Adelaida Carrion NPResults: Date of Service: 09/26/24Follow Up: Procedure(s): MM tomosynthesis screening BI Accession Number(s): [id number] cc: Adelaida Carrion NP Patient Name: NASIM INGRAM MR#: [id number] : 1960 Exam Date: 09/26/2024 Ordering Doctor: [...] Treatments None Family Cancers None LOCATION: The [facility] BREAST COMPOSITION: There are scattered [...] Grover M.D. Signed By:09/26/241642 DD/ 41 TD/TT: Oil Pipe Inspector: us Adelaida Carrion NP [facility] Final Result documented in this encounter Visit Diagnoses Not on filedocumented in this encounter Additional Health Concerns Assessment Noted Time PHQ-9 Depression Total Score: 8 05/18/19 24 5:00 PM EST documented as of this encounter Care Teams Wrapper Layer Relationship Specialty Start Date End Date José Luis Roberts MD [address] [place] [address] PCP - General Family Medicine 02/02/24 Miriam Suarez DO [address] [place] [address] Referring Physician Neurology 06/29/23 Adelaida Carrion NP [address] [place] [address] Nurse Practitioner Family Medicine 01/27/24 Bong Rosado MA [address] [place] [address] Family Medicine 02/12/24 Juany Leggett PA [address] [place] [address] Physician Auto Service Advisor Neurology 07/26/24 documented as of this encounter
--- OUTSIDE RECORDS SUMMARY | 2024-09-29 10:27 | XMS_ITS | Encounter Summary ---
Author Organization [facility] Address [address] [place] [address] Care Team Providers Care Software Applications Architect Name Role Phone Miriam Suarez DO Unavailable [phone] Adelaida Carrion NP Unavailable [phone] José Luis Roberts MD Primary Care Provider [phone] Bong Rosado MA Unavailable [phone] Juany Leggett Unavailable Reason for Visit * Reason Onset Date Comments Med Refill 07/08/2024 Encounter Details Date Type Department Care Team (Late st Contact Info) Description 07/08/2024 Refill [facility] [address] [place] [address] José Luis Roberts MD [address] [place] [address] Social History Tobacco Use Types [...] How often do you attend jewish or yazidi serv ices? Never 08/16/2023 Do [...] Recorded Patient Health Questionnaire-2 Score 2 09/21/2023 [facility] of Occupat ional Health - Occupational Stress [...] place to sleep or slept in a assisted (including now)? No 08/16/2023 Housing Stability Vital [...] LU - 07/19/2024 9:59 AM EDT Text Agency Sales Management Assistant Hi, this is Nasim Ingram. My date of versus 9162 was calling about the dilkon that I requested to be called in yesterday. There is nothing at drug more yet. Thank you. * Telephone Encounter - VALERIE LU - 07/18/2024 10:57 AM EDT Text Agency Sales Management Assistant Adelaida Fraser, this is Nasim Ingram. Surendra [phone] need to have you call in a prescription for [place] to the pharmacy at [facility], Dr. Ricci, other yeast infection, thank you. * Telephone Encounter - Adelaida Carrion NP - 07/13/2024 9:04 PM EDT Ordered by pain mgmt documented in this encounter Plan of Treatment Upcoming Encounters Date Type Department Care Team (Late st Contact Info) Description 11/14/2024 9:40 AM EDT Office Visit [facility] [address] [place] [address] Adelaida Carrion NP [address] [place] [address] documented as of this encounter Visit Diagnoses Not on filedocumented in this encounter Additional Health Concerns Assessment Noted Time PHQ-9 Depression Total Score: 8 05/18/19 24 5:00 PM EST documented as of this encounter Care Teams Software Applications Architect Relationship Specialty Start Date End Date José Luis Roberts MD [address] [place] [address] PCP - General Family Medicine 02/02/24 Miriam Suarez DO [address] [place] [address] Referring Physician Neurology 06/29/23 Adelaida Carrion NP [address] [place] [address] Nurse Practitioner Family Medicine 01/27/24 Bong Rosado MA [address] [address] Family Medicine 02/12/24 Juany Leggett PA [address] [place] [address] Physician Bank Examiner Neurology 07/26/24 documented as of this encounter
--- OUTSIDE RECORDS SUMMARY | 2024-09-29 10:27 | XMS_ITS | Encounter Summary ---
Author Organization [facility] Address [address] [place] [address] Care Team Providers Care Top And Seat Cover Fitter Name Role Phone Miriam Suarez DO Unavailable [phone] Adelaida Carrion NP Unavailable [phone] José Luis Roberts MD Primary Care Provider Bong Rosado MA Unavailable [phone] Juany Leggett Unavailable Encounter Details Date Type Department Care Team (Late st Contact Info) Description 03/02/2024 Orders Only [facility] [address] [place] [address] Adelaida Carrion, BRIANA [address] [place] [address] Social History Tobacco Use Types Packs/Day Years [...] declined 08/16/2023 How often do you attend shinto or christian serv ices? Never 08/16/2023 Do you belong to any clubs o r organizations such as shinto groups, unions, fraternal or athletic groups, or [...] Recorded Patient Health Questionnaire-2 Score 2 09/21/2023 [facility] - [facility]ational [...] Visit [facility] [address] [place] [address] Adelaida Carrion NP [address] [place] [address] documented as of this encounter Procedures Procedure Name Priority Date/Time Associated Diagnosis Comments SCANNED LABS Routine 03/02/2024 7:33 AM EST documented in this encounter Results * SCANNED LABS (03/02/2024 7:33 AM EST) Adelaida Carrion FINISHER [employer] STOCKS LAB CHG PERFORMABLES Final Resu lt documented in this encounter Visit Diagnoses Not on filedocumented in this encounter Additional Health Concerns Assessment Noted Time PHQ-9 Depression Total Score: 8 05/18/19 24 5:00 PM EST documented as of this encounter Care Teams Top And Seat Cover Fitter Relationship Specialty Start Date End Date José uLis Roberts MD [address] [place] [address] PCP - General Family Medicine 02/02/24 Miriam Suarez DO [address] [place] [address] Referring Physician Neurology 06/29/23 Adelaida Carrion NP [address] [place] [address] Nurse Practitioner Family Medicine 01/27/24 Bong Rosado MA [address] [place] [address] Family Medicine 02/12/24 Juany Leggett PA [address] [place] [address] Physician Wrapper Sheeter Neurology 07/26/24 documented as of this encounter
--- OUTSIDE RECORDS SUMMARY | 2024-09-29 10:27 | XMS_ITS | Encounter Summary ---
Author Organization [facility] Address [address] [place] [address] Care Team Providers Care Embossing Toolsetter Name Role Phone Miriam Suarez DO Unavailable [phone] Adelaida Carrion NP Unavailable [phone] José Luis Roberts MD Primary Care Provider Bong Rosado MA Unavailable [phone] Juany Leggett Unavailable Encounter Details Date Type Department Care Team (Late st Contact Info) Description 03/21/2024 Orders Only [facility] [address] [place] [address] Adelaida Carrion, BRIANA [address] [place] [address] Social History Tobacco Use Types Packs/Day Years [...] often do you attend jehovah's witness or druze serv ices? Never 08/16/2023 Do you belong [...] Recorded Patient Health Questionnaire-2 Score 2 09/21/2023 [facility] [...] Visit [facility] [address] [place] [address] Adelaida Carrion NP [address] [place] [address] documented as of this encounter Procedures Procedure [...] * SCANNED LABS (03/21/2024 2:30 PM EST) [facility] LAB CHG PERFORMABLES Final Res ult * SCANNED LABS (03/21/2024 2:21 PM EST) Adelaida Carrion NP LAB CHG PERFORMABLES Final Resu lt * ECG 12 lead (03/21/2024 2:19 PM EST) Result [facility] ECG ORDERABLES Final Result * ECG 12 lead (03/21/2024 2:15 PM EST) Result [facility] ECG ORDERABLES Final Result * ECG 12 lead (03/21/2024 2:10 PM EST) Clayton Galvan MD ECG ORDERABLES Final Result * ECG 12 lead (03/21/2024 2:07 PM EST) Rochelle Keene MD ECG ORDERABLES Final Result * Complete echocardiogram dobutamine stress test (03/21/2024 2:03 PM EST) Anatomical Region Laterality Modality Ultrasound Adelaida Aichholz FORGING PRESS LEVER TENDER CV ECHO PROCEDURES Final Result documented in this encounter Visit Diagnoses Not on filedocumented in this encounter Additional Health Concerns Assessment Noted Time PHQ-9 Depression Total Score: 8 05/18/19 24 5:00 PM EST documented as of this encounter Care Teams Embossing Toolsetter Relationship Specialty Start Date End Date José Luis Roberts MD [address] [place] [address] PCP - General Family Medicine 02/02/24 Miriam Suarez DO [address] [place], [place] [address] Referring Physician Neurology 06/29/23 Adelaida Carrion NP [address] [place] [address] Nurse Practitioner Family Medicine 01/27/24 Bong Rosado, [place] [address] [place] [address] Family Medicine 02/12/24 Juany Leggett PA [address] [place], [place] [address] Physician Molasses Coloring Operator Neurology 07/26/24 documented as of this encounter
--- OUTSIDE RECORDS SUMMARY | 2024-09-29 10:27 | XMS_ITS | Encounter Summary ---
Author Organization [facility] Address [address] [place] [address] Care Team Providers Care Sort Line Name Role Phone Miriam Suarez DO Unavailable [phone] Adelaida Carrion NP Unavailable [phone] José Luis Roberts MD Primary Care Provider [phone] Bong Rosado MA Unavailable [phone] Juany Leggett Unavailable Reason for Visit * Reason Onset Date Comments Med Refill 04/12/2024 Encounter Details Date Type Department Care Team (Late st Contact Info) Description 04/12/2024 Refill [facility] [address] [place] [address] José Luis Roberts MD [address] [place] [address] Social History Tobacco Use Types Packs/Day Years [...] How often do you attend yarsanism or tenriism serv ices? Never 08/16/2023 Do you belong [...] Recorded Patient Health Questionnaire-2 Score 2 09/21/2023 [facility] [place] of Occupat ional Health - Occupational Stress [...] place to sleep or slept in a penitentiary (including now)? No 08/16/2023 Housing Stability Vital [...] [facility] [address] [place] [address] Adelaida Carrion NP [address] [place] [address] documented as of this encounter Visit Diagnoses Not on filedocumented in this encounter Additional Health Concerns Assessment Noted Time PHQ-9 Depression Total Score: 8 05/18/19 24 5:00 PM EST documented as of this encounter Care Teams Sort Line Relationship Specialty Start Date End Date José Luis Roberts MD [address] [place] [address] PCP - General Family Medicine 02/02/24 Miriam Suarez DO [address] [place] [address] Referring Physician Neurology 06/29/23 Adelaida Carrion NP [address] [place] [address] Nurse Practitioner Family Medicine 01/27/24 Bong Rosaod MA [address] [place] [address] Family Medicine 02/12/24 Juany Leggett PA [address] [place] [address] Physician Education And Training Coordinator Neurology 07/26/24 documented as of this encounter
--- OUTSIDE RECORDS SUMMARY | 2024-09-29 10:27 | XMS_ITS | Encounter Summary ---
Author Organization [facility] Address [address] [place] [address] Care Team Providers Care Rate Reviewer Name Role Phone Adelaida Carrion NP Unavailable [phone] José Luis Roberts MD Primary Care Provider [phone] Miriam Suarez DO Unavailable [phone] Mathew Parra LAW EXAMINER Unavailable Unavailable Diana De Leon LPN Unavailable Unallocated, [facility] Provider Primary Care Provi kellee Adelaida Carrion NP Unavailable [phone] José Luis Roberts MD Primary Care Provider [phone] Bong Rosado MA Unavailable [phone] Juany Leggett Unavailable Encounter Details Date Type Department Care Team (Late st Contact Info) Description 09/18/2023 Clinisync Result Encounter [facility] External Department Unsolicited Adelaida Carrion NP [address] [place] [address] Social History Tobacco Use Types Packs/Day Years [...] declined 08/16/2023 How often do you attend tenriism or christian serv ices? Never 08/16/2023 Do you belong to any clubs o r organizations such as tenriism groups, unions, fraternal or athletic groups, or [...] Office Visit [facility] [address] [place] [address] Adelaida Carrion NP [address] [place] [address] documented as of this encounter Procedures Procedure Name Priority Date/Time Associated Diagnosis Comments MM TOMOSYNTHESIS SCREENING BI 09/18/2023 1:42 PM EDT documented in this encounter Results * MM TOMOSYNTHESIS SCREENING BI (09/18/2023 1:42 PM EDT) Anatomical Region Laterality Modality Other 09/18/2023 1:42 PM EDT Narrative 09/18/2023 1:43 PM EDT The [address] [address] Mammography Report Signed Patient: NASIM INGRAM MR#: [id number] : 1960 Acct:[id number] Age/Sex: 62 / F ADM Date: 09/18/23 Loc: MAMMO Attending Dr: Adelaida Carrion ENVIRONMENTAL STUDIES PROFESSOR Ordering Physician: Aichholz,Adelaida ENVIRONMENTAL STUDIES PROFESSOR Results: Date of Service: 09/18/23 Follow Up: Procedure(s): MM tomosynthesis screening BI Accession Number(s): [id number] cc: Adelaida Carrion NP Patient Name: NASIM INGRAM MR#: [id number] : 1960 Exam Date: 09/18/2023 Ordering Doctor: [...] None Family Cancers None LOCATION: The [facility] BREAST COMPOSITION: There are scattered areas [...] Signed By: 09/18/23 1343 DD/ 1342 TD/TT: Senior Consultant: Procedure Note Radiology, Radiologist, - 09/18/2023 [place] [address] Mammography Report Signed Patient: NASIM INGRAM LMR#: [id number] : 1960cct:[id number] Age/Sex: 62 / FADM Date: 09/18/23 Loc: MAMMO Attending Dr: Adelaida Carrion NP Ordering Physician: Adelaida Carrion NPResults: Date of Service: 09/18/23Follow Up: Procedure(s): MM tomosynthesis screening BI Accession Number(s): [id number] cc: Adelaida Carrion NP Patient Name: NASIM INGRAM MR#: [id number] : 1960 Exam Date: 09/18/2023 Ordering Doctor: LIVIER Carrion CNP RADIOLOGY REPORT PROCEDURE: MM TOMOSYNTHESIS SCREENING BI COMPARISON: MM TOMOSYNTHESIS SCREENING BI, 09/15/2022. MG MAMM [id number] BHUMI CAD, 06/20/2021. INDICATIONS: Screening Calculator Name NCI Breast Cancer Risk Assessment Tool 5 Year Breast Cancer Risk 2.20% Lifetime Breast Cancer Risk 10.30% Personal Breast Cancer No Personal Ovarian Cancer No Treatments None Family Cancers None LOCATION: The [facility] BREAST COMPOSITION: There are scattered areas [...] M.D. Signed By:09/18/23 1343 DD/ 1342 TD/TT: Senior Consultant: us Adelaida Carrion NP [facility] Final Result documented in this encounter Visit Diagnoses Not on filedocumented in this encounter Additional Health Concerns Assessment Noted Time PHQ-9 Depression Total Score: 8 05/18/19 24 5:00 PM EST documented as of this encounter Care Teams Rate Reviewer Relationship Specialty Start Date End Date José Luis Roberts MD [address] [place] [address] PCP - General Family Medicine 05/18/23 01/26/24 Unallocated, Johan Sierra MD [address] [place] [address] PCP - General Family Medicine 01/27/24 02/01/24 José Luis Roberts MD [address] [place] [address] PCP - General Family Medicine 02/02/24 Adelaida Carrion NP Referring Physician Nurse Practitioner 10/14/22 Miriam Suarez DO [address] [place], [place] [address] Referring Physician Neurology 06/29/23 Mathew Parra LPN Licensed Practical Nurse Family Medicine 07/23/23 Diana De Leon LPN [address] [place] [address] Licensed Practical Nurse Family Medicine 12/18/2302/11 Adelaida Carrion NP [address] [place] [address] Nurse Practitioner Family Medicine 01/27/24 Bong Rosado MA [address] [place] [address] Family Medicine 02/12/24 Juany Leggett PA [address] [place], [place] [address] Physician Network Architect Manager Neurology 07/26/24 documented as of this encounter
--- OUTSIDE RECORDS SUMMARY | 2024-09-29 10:27 | XMS_ITS | Encounter Summary ---
Author Organization [facility] Address [address] [place] [address] Care Team Providers Care Criminal Justice Program Director Name Role Phone Adelaida Carrion NP Unavailable [phone] José Luis Roberts MD Primary Care Provider [phone] Miriam Suarez DO Unavailable [phone] Mathew Parra COUNTRY SINGER Unavailable Unavailable Diana De Leon LPN Unavailable Unallocated, [facility] Provider Primary Care Provi kellee Adelaida Carrion NP Unavailable [phone] José Luis Roberts MD Primary Care Provider [phone] Bong Rosado MA Unavailable [phone] Juany Leggett Unavailable Encounter Details Date Type Department Care Team (Late st Contact Info) Description 10/27/2023 Abstract [facility] [address] [place] [address] Unallocated, Noms Provider, [address] [place], [place] [address] Social History Tobacco Use Types Packs/Day Years [...] declined 08/16/2023 How often do you attend restorationist or baptist serv ices? Never 08/16/2023 Do you belong to any clubs o r organizations such as restorationist groups, unions, fraternal or athletic groups, or [...] Recorded Patient Health Questionnaire-2 Score 2 09/21/2023 [facility] of Occupat ional Health - Occupational Stress [...] Office Visit [facility] [address] [place] [address] Adelaida Carrion, BRIANA [address] [place] [address] documented as of this encounter Visit Diagnoses Not on filedocumented in this encounter Additional Health Concerns Assessment Noted Time PHQ-9 Depression Total Score: 8 05/18/19 24 5:00 PM EST documented as of this encounter Care Teams Criminal Justice Program Director Relationship Specialty Start Date End Date José Luis Roberts MD [address] [place] [address] PCP - General Family Medicine 05/18/23 01/26/24 Unallocated, Johan Sierra MD [address] [facility] [place] [address] PCP - General Family Medicine 01/27/24 02/01/24 José Luis Roberts MD [address] [place] [address] PCP - General Family Medicine 02/02/24 Adelaida Carrion NP Referring Physician Nurse Practitioner 10/14/22 Miriam Suarez DO [address] [place] [address] Referring Physician Neurology 06/29/23 Mathew Parra LPN Licensed Practical Nurse Family Medicine 07/23/23 Diana De Leon LPN [address] [place], [place] [address] Licensed Practical Nurse Family Medicine 12/18/2302/11 Adelaida Carrion NP [address] [place] [address] Nurse Practitioner Family Medicine 01/27/24 Bong Rosado, [place] [address] [place] [address] Family Medicine 02/12/24 Juany Leggett PA [address] [place] [address] Physician Employment Agency Manager Neurology 07/26/24 documented as of this encounter
--- OUTSIDE RECORDS SUMMARY | 2024-09-29 10:27 | XMS_ITS ---
Author Organization [facility] Address [address] [place] [address] Care Team Providers Care Guard Dance Hall Name Role Phone Miriam Suarez DO Unavailable [phone] Adelaida Carrion NP Unavailable [phone] José Luis Roberts MD Primary Care Provider [phone] Bong Rosado MA Unavailable [phone] Juany Leggett Unavailable Chronic Care Management [...] Name Relationship Phone Bong Rosado MA(Responsible Staff) [phone] Continued Care and Services Coordination
--- OUTSIDE RECORDS SUMMARY | 2024-09-29 10:27 | XMS_ITS | Encounter Summary ---
Author Organization [facility] Address [address] [place] [address] Care Team Providers Care Director Of Integrated Marketing Name Role Phone Adelaida Carrion NP Unavailable [phone] José Luis Roberts MD Primary Care Provider [phone] Miriam Suarez DO Unavailable [phone] Mathew Parra IMPORTER EXPORTER Unavailable Unavailable Diana De Leon IMPORTER EXPORTER Unavailable Unallocated, Noms Provider Primary Care Provi kellee Adelaida Carrion NP Unavailable [phone] José Luis Roberts MD Primary Care Provider [phone] Bong Rosado MA Unavailable [phone] Juany Leggett Unavailable Encounter Details Date Type Department Care Team (Late st Contact Info) Description 09/21/2023 Orders Only [facility] [address] [place] [address] Adelaida Carrion NP [address] [facility] [place] [address] Social History Tobacco Use Types [...] declined 08/16/2023 How often do you attend latter-day or episcopalian serv ices? Never 08/16/2023 Do you belong to any clubs o r organizations such as latter-day groups, unions, fraternal or athletic groups, or [...] [facility] [address] [place] [address] Adelaida Carrion NP [address] [place] [address] documented as of this encounter Procedures Procedure [...] of this encounter Care Teams Director Of Integrated Marketing Relationship Specialty Start Date End Date José Luis Roberts MD [address] [place] [address] PCP - General Family Medicine 05/18/23 01/26/24 Unallocated, Johan Sierra MD [address] [place] [address] PCP - General Family Medicine 01/27/24 02/01/24 José Luis Roberts MD [address] [place] [address] PCP - General Family Medicine 02/02/24 Adelaida Carrion NP Referring Physician Nurse Practitioner 10/14/22 Miriam Suarez DO [address] [place] [address] Referring Physician Neurology 06/29/23 Mathew Parra LPN Licensed Practical Nurse Family Medicine 07/23/23 Diana [place] LPN [address] [place] [address] Licensed Practical Nurse Family Medicine 12/18/2302/11 Adelaida Carrion NP [address] [place] [address] Nurse Practitioner Family Medicine 01/27/24 Bong Rosado, [place] [address] [place] [address] Family Medicine 02/12/24 Juany Leggett PA [address] [place], [place] [address] Physician Pier Worker Neurology 07/26/24 documented as of this encounter
--- OUTSIDE RECORDS SUMMARY | 2024-09-29 10:27 | XMS_ITS | Encounter Summary ---
Author Organization [facility] Address [address] [place] [address] Care Team Providers Care Resident Buyer Name Role Phone Miriam Suarez DO Unavailable [phone] Adelaida Carrion NP Unavailable [phone] José Luis Roberts MD Primary Care Provider Bong Rosado MA Unavailable [phone] Juany Leggett Unavailable Encounter Details Date Type Department Care Team (Late st Contact Info) Description 03/17/2024 Orders Only [facility] [address] [place] [address] Adelaida Carrion, BRIANA [address] [place] [address] Social History Tobacco Use Types Packs/Day Years [...] How often do you attend episcopalian or sabianist serv ices? Never 08/16/2023 Do you belong [...] Recorded Patient Health Questionnaire-2 Score 2 09/21[facility]2023 [facility]ational Stress [...] Visit [facility] [address] [place] [address] Adelaida Carrion NP [address] [place] [address] documented as of this encounter Procedures Procedure [...] documented as of this encounter Care Teams Resident Buyer Relationship Specialty Start Date End Date Jos éLuis Roberts MD [address] [place] [address] PCP - General Family Medicine 02/02/24 Miriam Suarez DO [address] [place] [address] Referring Physician Neurology 06/29/23 Adelaida Carrion NP [address] [place] [address] Nurse Practitioner Family Medicine 01/27/24 Bong Rosado MA [address] [place] [address] Family Medicine 02/12/24 Juany Leggett PA [address] [place] [address] Physician Leather Tanner Neurology 07/26/24 documented as of this encounter
--- OUTSIDE RECORDS SUMMARY | 2024-09-29 10:27 | XMS_ITS | Encounter Summary ---
Author Organization [facility] Address [address] [place] [address] Care Team Providers Care Grinding And Polishing Laborer Name Role Phone Adelaida Carrion NP Unavailable [phone] José Luis Roberts MD Primary Care Provider [phone] Miriam Suarez DO Unavailable [phone] Mathew Parra CABLE INSTALLER REPAIRER HELPER Unavailable Unavailable Diana De Leon LPN Unavailable Unallocated, Noms Provider Primary Care Provi kellee Adelaida Carrion NP Unavailable [phone] José Luis Roberts MD Primary Care Provider [phone] Bong Rosado MA Unavailable [phone] Juany Leggett Unavailable Encounter Details Date Type Department Care Team (Late st Contact Info) Description 09/02/2023 Orders Only [facility] [address] [place] [address] Shaikh Alberto MD [address] [place] [address] Social History Tobacco Use Types [...] How often do you attend adventist or anabaptism serv ices? Never 08/16/2023 Do [...] Visit [facility] [address] [place] [address] Adelaida Carrion, NEUROPSYCHOLOGIST [address] [place] [address] documented as of this encounter Procedures Procedure [...] documented as of this encounter Care Teams Grinding And Polishing Laborer Relationship Specialty Start Date End Date José Luis Roberts MD [address] [place] [address] PCP - General Family Medicine 05/18/23 01/26/24 Unallocated, Johan Sierra MD [facility] [place] [address] PCP - General Family Medicine 01/27/24 02/01/24 José Luis Roberts MD [address] [place] [address] PCP - General Family Medicine 02/02/24 Adelaida Carrion, BRIANA Referring Physician Nurse Practitioner 10/14/22 Miriam Suarez DO [address] [place], [place] [address] Referring Physician Neurology 06/29/23 Mathew Parra LPN Licensed Practical Nurse Family Medicine 07/23/23 Diana De Leon LPN [address] [place] [address] Licensed Practical Nurse Family Medicine 12/18/2302/11 Adelaida Carrion NP [address] [place] [address] Nurse Practitioner Family Medicine 01/27/24 Bong Rosado, [place] [address] [place] [address] Family Medicine 02/12/24 Juany Leggett PA [address] [place] [address] Physician Linoleum Tile Layer Neurology 07/26/24 documented as of this encounter
--- OUTSIDE RECORDS SUMMARY | 2024-09-29 10:27 | XMS_ITS | Encounter Summary ---
Author Organization [facility] Address [address] [place] [address] Care Team Providers Care Net Manager Name Role Phone Daniela Miriam GRAHAM Unavailable [phone] Adelaida Carrion NP Unavailable [phone] José Luis Roberts MD Primary Care Provider [phone] Bong Rosado MA Unavailable [phone] Juany Leggett Unavailable Encounter Details Date Type Department Care Team (Late st Contact Info) Description 09/26/2024 Clinisync Result Encounter [facility] External Department Unsolicited Adelaida Carrion, BRIANA [address] [place] [address] Social History Tobacco Use Types Packs/Day Years [...] How often do you attend alevism or taoist serv ices? Never 08/16/2023 Do you belong [...] Score 2 09/21/2023 [facility] - Occupational [...] place to sleep or slept in a usp (including now)? No 08/16/2023 Housing Stability Vital [...] Visit [facility] [address] [place] [address] Adelaida Carrion NP [address] [place] [address] documented as of this encounter Procedures Procedure Name Priority Date/Time Associated Diagnosis Comments CT LUNG SCREENING LOW DOSE 09/26/2024 5:02 PM EDT documented in this encounter Results * CT LUNG SCREENING LOW DOSE (09/26/2024 5:02 PM EDT) Anatomical Region Laterality Modality Other 09/26/2024 5:02 PM EDT Narrative 09/26/2024 5:04 PM EDT The [address] [address] [address] Scan Report Signed Patient: NASIM INGRAM MR#: [id number] : 1960 Acct:[id number] Age/Sex: 63 / F ADM Date: 09/26/24 Loc: MAMMO Attending Dr: Adelaida Carrion NP Ordering Physician: Adelaida Carrion NP Date of Service: 09/26/24 Procedure(s): CT lung screening low-dose Accession Number(s): [id number] cc: Adelaida Carrion NP The [address] [address] Patient Name: NASIM INGRAM MRN: [id number] date: 1960 Sex: F [facility]: RAD Accession/Order Number: [id number] Exam Date: 09/26/2024 16:58 Report Date: 09/26/2024 [...] Guadalupe M.D. 09/26/2024 5:02 PM Dictation Location: [place] [address] Electronically authenticated by: [id number] Y Date: 09/26/2024 17:02 Dictated By: Shaheed Guadalupe M.D. Signed By: 09/26/241703 DD/ 01 TD/TT: Granite Worker: Procedure Note Radiology, Radiologist, - 09/26/2024 [place] [address] CT Scan Report Signed Patient: NASIM INGRAM R#: [id number] : 1960cct:[id number] Age/Sex: 63 / FADM Date: 09/26/24 Loc: MAMMO Attending Dr: Adelaida Carrion NP Ordering Physician: Adelaida Crarion NP Date of Service: 09/26/24 Procedure(s): CT lung screening low-dose Accession Number(s): [id number] cc: Adelaida Carrion NP The [address] [address] Patient Name: NASIM INGRAM MRN: [facility]:[id number] date: 1960 Sex: F Assigned Patient Location: MAMMO Current Patient Location: RAD Accession/Order Number: [id number] Exam Date: 09/26/2024 16:58 Report Date: 09/26/2024 [...] Guadalupe M.D. 09/26/2024 5:02 PM Dictation Location: [place] [address] Electronically authenticated by: [id number] Y Date: 7:02 Dictated By: Shaheed Guadalupe M.D. Signed By:09/26/24 1704 DD/ 01 TD/TT: Granite Worker: us Adelaida Carrion NP [facility] Final Result documented in this encounter Visit Diagnoses Not on filedocumented in this encounter Additional Health Concerns Assessment Noted Time PHQ-9 Depression Total Score: 8 05/18/19 24 5:00 PM EST documented as of this encounter Care Teams Net Manager Relationship Specialty Start Date End Date José Luis Roberts MD [address] [place] [address] PCP - General Family Medicine 02/02/24 Miriam Suarez DO [address] [place] [address] Referring Physician Neurology 06/29/23 Adelaida Carrion NP [address] [place] [address] Nurse Practitioner Family Medicine 01/27/24 Bong Rosado, [place] [address] [place] [address] Family Medicine 02/12/24 Juany Leggett PA [address] [place] [address] Physician Store Gift Wrap Associate Neurology 07/26/24 documented as of this encounter
--- OUTSIDE RECORDS SUMMARY | 2024-09-29 10:28 | XMS_ITS | Clinical Summary ---
Author Organization [facility] Address [address] [place] [address] Care Team Providers Care Cafeteria Team Leader Name Role Phone Unavailable Primary Care Provider [...]
--- OUTSIDE RECORDS SUMMARY | 2024-09-29 10:28 | XMS_ITS | Encounter Summary ---
Author Organization [facility] Address [address] [place] [address] Care Team Providers Care Endoscope Technician Name Role Phone Adelaida Carrion NP Unavailable [phone] José Luis Roberts MD Primary Care Provider [phone] José Luis Roberts MD Primary Care Provider [phone] Mirima Suarez DO Unavailable [phone] [place], Ardana BUCKLE INSPECTOR Unavailable Unavailable Fran Parradana BUCKLE INSPECTOR Unavailable Unavailable Diana De Leon BUCKLE INSPECTOR Unavailable Unallocated, Noms Provider Primary Care Provi kellee Adelaida Carrion ADOPTION SERVICES MANAGER Unavailable [phone] José Luis Roberts MD Primary Care Provider [phone] Bong Rosado MA Unavailable [phone] Juany Leggett Unavailable Encounter Details Date Type Department Care Team (Late st Contact Info) Description 11/14/2022 Abstract [facility] [address] [facility] [address] [place] [address] Travon Hines PA [address] [facility] [address] [place] [address] Social History Tobacco Use Types Packs/Day Years [...] Office Visit JOHAN MANDUJANO [address] [place] [address] Adelaida Carrion NP [address] [place] [address] documented as of this encounter Visit Diagnoses Not on filedocumented in this encounter Care Teams Endoscope Technician Relationship Specialty Start Date End Date José Luis Roberts MD PCP - General Family Medicine 10/14/22 05/17/23 José Luis Roberts MD [address] [place] [address] PCP - General Family Medicine 05/18/23 01/26/24 Unallocated, Johan Sierra MD [address] [place] [address] PCP - General Family Medicine 01/27/24 02/01/24 José Luis Roberts MD [address] [place] [address] PCP - General Family Medicine 02/02/24 Adelaida Carrion NP Referring Physician Nurse Practitioner 10/14/22 Miriam Suarez DO [address] [place], [place] [address] Referring Physician Neurology 06/29/23 Mathew Parra LPN Registered Nurse Family Medicine 07/07/23 07/08/23 Mathew Parra LPN Licensed Practical Nurse Family Medicine 07/23/23 Diana De Leon LPN [address] [place] [address] Licensed Practical Nurse Family Medicine 12/18/2302/11 Adelaida Carrion NP [address] [place] [address] Nurse Practitioner Family Medicine 01/27/24 Bong Rosado, [place] [address] [place] [address] Family Medicine 02/12/24 Juany Leggett PA [address] [place] [address] Physician Fruit Canner Neurology 07/26/24 documented as of this encounter
--- OUTSIDE RECORDS SUMMARY | 2024-09-29 10:28 | XMS_ITS | Encounter Summary ---
Author Organization [facility] Address [address] [place] [address] Care Team Providers Care Recycling Manager Name Role Phone Adelaida Carrion NP Unavailable [phone] José Luis Roberts MD Primary Care Provider [phone] Miriam Suarez DO Unavailable [phone] Mathew Parra MANAGER MOUNTAIN Unavailable Unavailable Diana De Leon LPN Unavailable Unallocated, Noms Provider Primary Care Provi kellee Adelaida Carrion NP Unavailable [phone] José Luis Roberts MD Primary Care Provider [phone] Bong Rosado MA Unavailable [phone] Juany Leggett Unavailable Encounter Details Date Type Department Care Team (Late st Contact Info) Description 08/19/2023 Clinisync Result Encounter [facility] External Department Unsolicited Adelaida Carrion NP [address] [place] [address] Social History Tobacco Use Types Packs/Day Years [...] How often do you attend shinto or advent serv ices? Never 08/16/2023 Do [...] Questionnaire-2 Score 0 08/17/2023 [facility] ional Health - Occupational [...] Visit [facility] [address] [place] [address] Adelaida Carrion NP [address] [place] [address] documented as of this encounter Procedures Procedure Name Priority Date/Time Associated Diagnosis Comments CT LUNG SCREENING LOW DOSE 08/19/2023 6:06 AM EDT documented in this encounter Results * CT LUNG SCREENING LOW DOSE (08/19/2023 6:06 AM EDT) Anatomical Region Laterality Modality Other 08/19/2023 6:06 AM EDT Narrative 08/19/2023 6:[place] [address] CT Scan Report Signed Patient: NASIM INGRAM MR#: [id number] : 1960 Acct:[id number] Age/Sex: 62 / F ADM Date: 08/18/23 Loc: CT Attending Dr: Adelaida Carrion PIPE INSULATOR Ordering Physician: Adelaida Carrion NP Date of Service: 08/18/23 Procedure(s): CT lung screening low-dose Accession Number(s): [id number] cc: Adelaida Carrion NP [address] [address] Patient Name: NASIM INGRAM MRN: [id number] date: 1960 Sex: F Assigned Patient Location: CT Current Patient Location: Accession/Order Number: [id number] Exam Date: 08/18/2023 13:28 Report Date: 08/19/2023 [...] M.D. Signed By: 08/19/23608 DD/ 5 TD/TT: Public Relations: Procedure Note Radiology, Radiologist, MD - 08/19/[address] [place] [address] Scan Report Signed Patient: NASIM INGRAM LMR#: [id number] : 1960cct:[id number] Age/Sex: 62 / FADM Date: 08/18/23 Loc: CT Attending Dr: Adelaida Carrion NP Ordering Physician: Adelaida Carrion NP Date of Service: 08/18/23 Procedure(s): CT lung screening low-dose Accession Number(s): [id number] cc: Adelaida Carrion NP The [address] [address] Patient Name: NASIM INGRAM MRN: [id number] date: 1960 Sex: F Assigned Patient Location: CT Current Patient Location: Accession/Order Number: [id number] Exam Date: 08/18/2023 13:28 Report Date: 08/19/2023 [...] LDCT in 12 months. Electronically authenticated by: AJCE DHILLON Date: 08/19/2023 06:06 Dictated By: Jace Dhillon M.D. Signed By:08/19/23608 DD/ 5 TD/TT: Public Relations: Adelaida Carrion PIPE INSULATOR [facility] Final Result documented in this encounter Visit Diagnoses Not on filedocumented in this encounter Additional Health Concerns Assessment Noted Time PHQ-9 Depression Total Score: 8 05/18/19 24 5:00 PM EST documented as of this encounter Care Teams Recycling Manager Relationship Specialty Start Date End Date José Luis Roberts MD [address] [place] [address] PCP - General Family Medicine 05/18/23 01/26/24 Unallocated, Noms MD Mariela [address] [place] [address] PCP - General Family Medicine 01/27/24 02/01/24 José Luis Roberts MD [address] [place] [address] PCP - General Family Medicine 02/02/24 Adelaida Carrion NP Referring Physician Nurse Practitioner 10/14/22 Miriam Suarez DO [address] [place], [place] [address] Referring Physician Neurology 06/29/23 Mathew Parra LPN Licensed Practical Nurse Family Medicine 07/23/23 Diana De Leon LPN [address] [place] [address] Licensed Practical Nurse Family Medicine 12/18/2302/11 Adelaida Carrion NP [address] [place] [address] Nurse Practitioner Family Medicine 01/27/24 Bong Rosado, [place] [address] [place] [address] Family Medicine 02/12/24 Juany Leggett PA [address] [place], [place] [address] Physician Manager Advanced Neurology 07/26/24 documented as of this encounter
--- OUTSIDE RECORDS SUMMARY | 2024-09-29 10:28 | XMS_ITS | Encounter Summary ---
Author Organization [facility] Address [address] [place] [address] Care Team Providers Care Forensic Analyst Name Role Phone Adelaida Carrion NP Unavailable [phone] José Luis Roberts MD Primary Care Provider [phone] Miriam Suarez DO Unavailable [phone] Mathew Parra PROGRAMMABLE LOGIC CONTROLLER ASSEMBLER Unavailable Unavailable Diana De Leon PROGRAMMABLE LOGIC CONTROLLER ASSEMBLER Unavailable Unallocated, Noms Provider Primary Care Provi kellee Adelaida Carrion NP Unavailable [phone] José Luis Roberts MD Primary Care Provider [phone] Bong Rosado MA Unavailable [phone] Juany Leggett Unavailable Encounter Details Date Type Department Care Team (Late st Contact Info) Description 08/25/2023 Orders Only [facility] [address] [place] [address] Adelaida Carrion NP [address] [place] [address] Social History Tobacco Use Types [...] How often do you attend restorationist or tenriism serv ices? Never 08/16/2023 Do [...] Patient Health Questionnaire-2 Score 0 08/17/2023 [facility] Occupat ional Health - Occupational [...] Visit [facility] [address] [place] [address] Adelaida Carrion, BRIANA [address] [place] [address] documented as of this encounter Procedures Procedure Name Priority Date/Time Associated Diagnosis Comments ELECTROCARDIOGRAM REPORT Routine 024 8:39 AM EDT documented in this encounter Results * Electrocardiogram Report (08/24/2023 8:39 AM EDT) us Adelaida Carrion CONSTRUCTION HELPER IN CLINIC/BEDSIDE ORDERABLES Fi nal Result documented in this encounter Visit Diagnoses Not on filedocumented in this encounter Additional Health Concerns Assessment Noted Time PHQ-9 Depression Total Score: 8 05/18/19 24 5:00 PM EST documented as of this encounter Care Teams Forensic Analyst Relationship Specialty Start Date End Date José Luis Roberts MD [address] [place] [address] PCP - General Family Medicine 05/18/23 01/26/24 Unallocated, Johan Sierra MD [address] [place] [address] PCP - General Family Medicine 01/27/24 02/01/24 José Luis Roberts MD [address] [place] [address] PCP - General Family Medicine 02/02/24 Adelaida Carrion NP Referring Physician Nurse Practitioner 10/14/22 Miriam Suarez DO [address] [place], [place] [address] Referring Physician Neurology 06/29/23 Mathew Parra LPN Licensed Practical Nurse Family Medicine 07/23/23 Diana De Leon LPN [address] [place] [address] Licensed Practical Nurse Family Medicine 12/18/2302/11 Adelaida Carrion NP [address] [place] [place] [address] Nurse Practitioner Family Medicine 01/27/24 Bong Rosado, [place] [address] [place] [address] Family Medicine 02/12/24 Juany Leggett PA [address] [place] [address] Physician Pants Presser Automatic Neurology 07/26/24 documented as of this encounter
--- OUTSIDE RECORDS SUMMARY | 2024-09-29 10:28 | XMS_ITS | Encounter Summary ---
Author Organization [facility] Address [address] [place] [address] Care Team Providers Care Die Cast Engineer Name Role Phone Adelaida Carrion NP Unavailable [phone] José Luis Roberts MD Primary Care Provider [phone] Miriam Suarez DO Unavailable [phone] Mathew Parra PATTERN CHANGER Unavailable Unavailable Diana De Leon LPN Unavailable Unallocated, Noms Provider Primary Care Provi kellee Adelaida Carrion NP Unavailable [phone] José Luis Roberts MD Primary Care Provider [phone] Bong Rosado MA Unavailable [phone] Juany Leggett Unavailable Encounter Details Date [...] declined 08/16/2023 How often do you attend orthodox or hindu serv ices? Never 08/16/2023 Do you belong to any clubs o r organizations such as orthodox groups, unions, fraternal or athletic groups, [...] Recorded Patient Health Questionnaire-2 Score 2 09/21/2023 [facility] [place] of Occupat ional Health - Occupational Stress [...] Visit [facility] [address] [place] [address] Adelaida Carrion NP [address] [place] [address] documented as of this encounter Procedures Procedure Name Priority Date/Time Associated Diagnosis Comments XR THORACIC SPINE 2 VIEWS 12/02/2023 2:53 PM EDT documented in this encounter Results * XR thoracic spine 2 views (12/02/2023 2:53 PM EDT) Anatomical Region Laterality Modality Spine, T-spine Radiographic Nelda ging 12/02/2023 2:53 PM EDT Narrative 12/02/2023 2:55 PM EDT [place] [id number] XRay Report Signed Patient: NASIM INGRAM MR#: [id number] : 1960 Acct:[id number] Age/Sex: 62 / F ADM Date: 12/02/23 Loc: RAD Attending Dr: Elizabeth Cano PROPERTY CLAIMS MANAGER Ordering Physician: Elizabeth Cano NP Date of Service: 12/02/23 Procedure(s): XR thoracic spine 2V Accession Number(s): [id number] cc: Adelaida Carrion PROPERTY CLAIMS MANAGER; Elizabeth Cano NP [address] [address] Patient Name: NASIM INGRAM MRN: [id number] date: 1960 Sex: F Assigned Patient Location: [facility] Current Patient Location: [facility] Accession/Order Number: [id number] Exam Date: 12/02/2023 14:10 Report Date: 12/02/2023 [...] Signed By: 12/02/23 1455 DD/ 1453 TD/TT: Printing Pressman: Procedure Note Radiology, Radiologist, MD - 12/02/2023 [place] [address] XRay Report Signed Patient: NASIM INGRAM LMR#: [id number] : 1960cct:[id number] Age/Sex: 62 / FADM Date: 12/02/23 Loc: [facility] Attending Dr: Elizabeth Cano NP Ordering Physician: Elizabeth Cano NP Date of Service: 12/02/23 Procedure(s): XR thoracic spine 2V Accession Number(s): [id number] cc: Adelaida Carrion NP; Elizabeth Cano NP The [address] [address] Patient Name: NASIM INGRAM MRN: [id number] date: 1960 Sex: F Assigned Patient Location: [facility] Current Patient Location: [facility] Accession/Order Number: [id number] Exam Date: 12/02/2023 14:10 Report Date: 12/02/2023 [...] M.D. Signed By:12/02/23 1455 DD/ 1453 TD/TT: Printing Pressman: us Generic External Data Provider IMG XR PROCEDURES Final Result documented in this encounter Visit Diagnoses Not on filedocumented in this encounter Additional Health Concerns Assessment Noted Time PHQ-9 Depression Total Score: 8 05/18/19 24 5:00 PM EST documented as of this encounter Care Teams Die Cast Engineer Relationship Specialty Start Date End Date José Luis Roberts MD [address] [place] [address] PCP - General Family Medicine 05/18/23 01/26/24 Unallocated, Noms ProviderMD [address] [place] [address] PCP - General Family Medicine 01/27/24 02/01/24 José Luis Roberts MD [address] [place] [address] PCP - General Family Medicine 02/02/24 Adelaida Carrion NP Referring Physician Nurse Practitioner 10/14/22 Miriam Suarez DO [address] [place] [address] Referring Physician Neurology 06/29/23 Mathew Parra LPN Licensed Practical Nurse Family Medicine 07/23/23 Diana De Leon LPN [address] [place] [address] Licensed Practical Nurse Family Medicine 12/18/2302/11 Adelaida Carrion NP [address] [place] [address] Nurse Practitioner Family Medicine 01/27/24 Bong Rosdao, [place] [address] [place] [address] Family Medicine 02/12/24 Juany Leggett PA [address] [place], [place] [address] Physician Certified Shorthand Reporter Neurology 07/26/24 documented as of this encounter
--- OUTSIDE RECORDS SUMMARY | 2024-09-29 10:28 | XMS_ITS | Encounter Summary ---
Author Organization [facility] Address [address] [place] [address] Care Team Providers Care Flatbed Press Operator Name Role Phone Adelaida Carrion NP Unavailable [phone] José Luis Roberts MD Primary Care Provider [phone] José Luis Roberts MD Primary Care Provider [phone] Miriam Suarez DO Unavailable [phone] Paicines, Ardana CONVEYOR MAINTENANCE MECHANIC Unavailable Unavailable Aida Ardana CONVEYOR MAINTENANCE MECHANIC Unavailable Unavailable Diana De Leon CONVEYOR MAINTENANCE MECHANIC Unavailable Unallocated, Noms Provider Primary Care Provi kellee Adelaida Carrion NP Unavailable José Luis Roberts MD Primary Care Provider [phone] Bong Rosado MA Unavailable [phone] Juany Leggett Unavailable Encounter Details Date Type Department Care Team (Late st Contact Info) Description 03/25/2023 Abstract [facility] [address] [place] [address] Adelaida Carrion NP [address] [place] [address] Social History Tobacco Use Types Packs/Day Years [...] Office Visit JOHAN MANDUJANO [address] [place] [address] Adelaida Carrion NP [address] [place] [address] documented as of this encounter Visit Diagnoses Not on filedocumented in this encounter Care Teams Flatbed Press Operator Relationship Specialty Start Date End Date José Luis Roberts MD PCP - General Family Medicine 10/14/22 05/17/23 José Luis Roberts MD [address] [place] [address] PCP - General Family Medicine 05/18/23 01/26/24 Unallocated, Johan Sierra MD [address] [place] [address] PCP - General Family Medicine 01/27/24 02/01/24 José Luis Roberts MD [address] [place] [address] PCP - General Family Medicine 02/02/24 Adelaida Carrion NP Referring Physician Nurse Practitioner 10/14/22 Miriam Suarez DO [address] [place], [place] [address] Referring Physician Neurology 06/29/23 Mathew Parra LPN Registered Nurse Family Medicine 07/07/23 07/08/23 Mathew Parra LPN Licensed Practical Nurse Family Medicine 07/23/23 Diana De Leon LPN [address] [place], [place] [address] Licensed Practical Nurse Family Medicine 12/18/2302/11 Adelaida Carrion NP [address] [place] [address] Nurse Practitioner Family Medicine 01/27/24 Bong Rosado, [place] [address] [place] [address] Family Medicine 02/12/24 Juany Leggett PA [address] [place] [address] Physician Clothes Ironer Neurology 07/26/24 documented as of this encounter
--- OUTSIDE RECORDS SUMMARY | 2024-09-29 10:28 | XMS_ITS | Encounter Summary ---
Author Organization [facility] Address [address] [place] [address] Care Team Providers Care Proof Machine Operator Name Role Phone Adelaida Carrion NP Unavailable [phone] oJsé Luis Roberts MD Primary Care Provider [phone] Miriam Suarez DO Unavailable [phone] Mathew Parra CONCRETE PLACEMENT EQUIPMENT OPERATOR Unavailable Unavailable Diana De Leon LPN Unavailable Unallocated, Noms Provider Primary Care Provi kellee Adelaida Carrion NP Unavailable [phone] José Luis Roberts MD Primary Care Provider [phone] Bong Rosado MA Unavailable [phone] Juany Leggett Unavailable Encounter Details Date Type Department Care Team (Late st Contact Info) Description 09/01/2023 Orders Only [facility] [address] [place] [address] Shaikh Alberto MD [address] [place] [address] Social History Tobacco Use Types [...] How often do you attend yarsani or anglican serv ices? Never 08/16/2023 Do you belong [...] Recorded Patient Health Questionnaire-2 Score 0 08/17/2023 [facility] of Occupat ional Health - [...] place to sleep or slept in a mcfp (including now)? No 08/16/2023 Housing Stability Vital [...] [facility] [address] [place] [address] Adelaida Carrion NP [address] [place] [address] documented as of this encounter Procedures Procedure [...] documented as of this encounter Care Teams Proof Machine Operator Relationship Specialty Start Date End Date José Luis Roberts MD [address] [place] [address] PCP - General Family Medicine 05/18/23 01/26/24 Unallocated, Johan Sierra MD [address] [place] [address] PCP - General Family Medicine 01/27/24 02/01/24 José Luis Roberts MD [address] [place] [address] PCP - General Family Medicine 02/02/24 Adelaida Carrion NP Referring Physician Nurse Practitioner 10/14/22 Miriam Suarez DO [address] [place], [place] [address] Referring Physician Neurology 06/29/23 Mathew Parra LPN Licensed Practical Nurse Family Medicine 07/23/23 Diana De Leon LPN [address] [place] [address] Licensed Practical Nurse Family Medicine 12/18/2302/11 Adelaida Carrion NP [address] [place] [address] Nurse Practitioner Family Medicine 01/27/24 Bong Rosado MA [address] [place] [address] Family Medicine 02/12/24 Juany Leggett PA [address] [place], [place] [address] Physician Plant Breeder Scientist Neurology 07/26/24 documented as of this encounter
--- OUTSIDE RECORDS SUMMARY | 2024-09-29 10:28 | XMS_ITS | Encounter Summary ---
Author Organization [facility] Address [address] [place] [address] Care Team Providers Care Plastic Production Machine Setter Name Role Phone Adelaida Carrion NP Unavailable [phone] José Luis Roberts MD Primary Care Provider Miriam Suarez DO Unavailable [phone] Diana De Leon LPN Unavailable Unallocated, Noms Provider Primary Care Provi kellee Adelaida Carrion NP Unavailable [phone] José Luis Roberts MD Primary Care Provider Bong Rosado MA Unavailable [phone] Juany Leggett Unavailable Encounter Details Date Type Department Care Team (Late st Contact Info) Description 01/21/2024 Orders Only [facility] [address] [place] [address] Adleaida Carrion NP [address] [place] [address] Social History Tobacco Use Types [...] declined 08/16/2023 How often do you attend worship or church serv ices? Never 08/16/2023 Do you belong to any clubs o r organizations such as worship groups, unions, fraternal or athletic groups, or [...] Recorded Patient Health Questionnaire-2 Score 2 09/21/2023 [facility] of Occupat ional Health - Occupational [...] Visit [facility] [address] [place] [address] Adelaida Carrion, BRIANA [address] [place] [address] documented as of this encounter Procedures Procedure Name Priority Date/Time Associated Diagnosis Comments CT HEAD OR BRAIN W/ & W/O CONTRAST Routine 01/21/2024 9:10 AM EDT documented in this encounter Results * CT HEAD OR BRAIN W/ & W/O CONTRAST (01/21/2024 9:10 AM EDT) Anatomical Region Laterality Modality Radiographic Nelda ging us Adelaida Carrion [employer] SCHOOL HUMANITIES TEACHER IMG XR PROCEDURES Final Result documented in this encounter Visit Diagnoses Not on filedocumented in this encounter Additional Health Concerns Assessment Noted Time PHQ-9 Depression Total Score: 8 05/18/19 24 5:00 PM EST documented as of this encounter Care Teams Plastic Production Machine Setter Relationship Specialty Start Date End Date José Luis Roberts MD [address] [place] [address] PCP - General Family Medicine 05/18/23 01/26/24 Unallocated, Johan Sierra MD [address] [place] [address] PCP - General Family Medicine 01/27/24 02/01/24 José Luis Roberts MD [address] [place] [address] PCP - General Family Medicine 02/02/24 Adelaida Carrion NP Referring Physician Nurse Practitioner 10/14/22 Miriam Suarez DO [address] [place], [place] [address] Referring Physician Neurology 06/29/23 Diana De Leon LPN [address] [place] [address] Licensed Practical Nurse Family Medicine 12/18/2302/11 Adelaida Carrion NP [address] [place] [address] Nurse Practitioner Family Medicine 01/27/24 Bong Rosado, [place] [address] [place] [address] Family Medicine 02/12/24 Juany Leggett PA [address] [place], [place] [address] Physician Private Pilot Neurology 07/26/24 documented as of this encounter
--- OUTSIDE RECORDS SUMMARY | 2024-09-29 10:28 | XMS_ITS | Encounter Summary ---
Author Organization [facility] Address [address] [facility] [address] Care Team Providers Care Career Law Clerk Name Role Phone Adelaida Carrion NP Unavailable [phone] José Luis Roberts MD Primary Care Provider [phone] José Luis Roberts MD Primary Care Provider [phone] Miriam Suarez DO Unavailable [phone] Kingsley, Ardana SALES LEDGER ADMINISTRATOR Unavailable Unavailable Aida Ardana SALES LEDGER ADMINISTRATOR Unavailable Unavailable Diana De Leon SALES LEDGER ADMINISTRATOR Unavailable Unallocated, Noms Provider Primary Care Provi kellee Adelaida Carrion NP Unavailable José Luis Roberts MD Primary Care Provider [phone] Bong Rosado MA Unavailable [phone] Juany Leggett Unavailable Encounter Details Date Type Department Care Team (Late st Contact Info) Description 03/06/2023 Clinisync Result Encounter [facility] External Department Unsolicited Ashleigh Hines PA [address] [facility] [address] [place] [address] Social History Tobacco Use Types Packs/Day Years [...] [facility] [address] [address] Adelaida Carrion NP [address] [place] [address] documented as of this encounter Procedures Procedure Name Priority Date/Time Associated Diagnosis Comments KNEE RT WO CON 03/06/2023 3:5 5 PM EST documented in this encounter Results * MR KNEE RT WO CON (03/06/2023 3:55 PM EST) Anatomical Region Laterality Modality Other 03/06/2023 3:55 PM EST Narrative 03/06/2023 3:55 PM EST [address] [address] Magnetic Resonance Report Signed Patient: NASIM BE MR#: [id number] : 1960 Acct:[id number] Age/Sex: 62 / F ADM Date: 03/06/23 Loc: MRI Attending Dr: Ashleigh REDDY Ordering Physician: Ashleigh Hines Date of Service: 03/06/23 Procedure(s): knee RT wo con Accession Number(s): [id number] cc: Adelaida Carrion ERGONOMICS CONSULTANT; Ashleigh Hines [address] [address] Patient Name: NASIM BE MRN: [id number] date: 1960 Sex: F Assigned Patient Location: MRI Current Patient Location: MRI Accession/Order Number: [id number] Exam Date: 03/06/2023 09:30 Report Date: 03/06/2023 [...] Signed By: 03/06/23 1558 DD/ 1555 TD/TT: Fruit Raiser: Procedure Note Radiology, Radiologist, - 03/06/2023 [place] [address] Magnetic Resonance Report Signed Patient: NASIM BE LMR#: [id number] : 1960cct:[id number] Age/Sex: 62 / FADM Date: 03/06/23 Loc: MRI Attending Dr: Ashleigh REDDY Ordering Physician: Ashleigh Hines Date of Service: 03/06/23 Procedure(s): MR knee RT wo con Accession Number(s): [id number] cc: Adelaida Carrion NP; Ashleigh Hines [place] [address] Patient Name: NASIM BE MRN: [facility]:[id number] date: 1960 Sex: F Assigned Patient Location: MRI Current Patient Location: MRI Accession/Order Number: [id number] Exam Date: 03/06/2023 09:30 Report Date: 03/06/2023 [...] M.D. Signed By:03/06/23 1558 DD/ 1555 TD/TT: Fruit Raiser: us Ashleigh REDDY [facility] Final Resul t documented in this encounter Visit Diagnoses Not on filedocumented in this encounter Care Teams Career Law Clerk Relationship Specialty Start Date End Date José Luis Roberts MD PCP - General Family Medicine 10/14/22 05/17/23 José Luis Roberts MD [address] [place] [address] PCP - General Family Medicine 05/18/23 01/26/24 Unallocated, Noms MD Mariela [address] [place] [address] PCP - General Family Medicine 01/27/24 02/01/24 José Luis Roberts MD [address] [place] [address] PCP - General Family Medicine 02/02/24 Adelaida Carrion NP Referring Physician Nurse Practitioner 10/14/22 Miriam Suarez DO [address] [place] [address] Referring Physician Neurology 06/29/23 Mathew Parra LPN Registered Nurse Family Medicine 07/07/23 07/08/23 Mathew Parra LPN Licensed Practical Nurse Family Medicine 07/23/23 Diana De Leon LPN [address] [place], [place] [address] Licensed Practical Nurse Family Medicine 12/18/2302/11 Adelaida Carrion NP [address] [place] [address] Nurse Practitioner Family Medicine 01/27/24 Bong Rosado, [place] [address] [place] [address] Family Medicine 02/12/24 Juany Leggett PA [address] [place] [address] Physician Instrument Tester Neurology 07/26/24 documented as of this encounter
--- OUTSIDE RECORDS SUMMARY | 2024-09-29 10:28 | XMS_ITS | Encounter Summary ---
Author Organization [facility] Address [address] [place] [address] Care Team Providers Care Global Sourcing Manager Name Role Phone Adelaida Carrion NP Unavailable [phone] José Luis Roberts MD Primary Care Provider [phone] Miriam Suarez DO Unavailable [phone] Mahtew Parra OPEN HEARTH STOCKYARD SUPERVISOR Unavailable Unavailable Diana De Leon OPEN HEARTH STOCKYARD SUPERVISOR Unavailable Unallocated, Noms Provider Primary Care Provi kellee Adelaida Carrion NP Unavailable [phone] José Luis Roberts MD Primary Care Provider [phone] Bong Rosado MA Unavailable [phone] Juany Leggett Unavailable Encounter Details Date Type Department Care Team (Late st Contact Info) Description 07/14/2023 Orders Only [facility] [address] [place] [address] Adelaida Carrion NP [address] [place] [address] Social History Tobacco Use Types [...] Never 05/18/2023 How often do you attend voodoo or tenriism serv ices? Never 05/18/2023 Do you belong [...] Recorded Patient Health Questionnaire-2 Score 0 07/07/2023 [facility] [place] of Occupat ional Health - Occupational Stress [...] [facility] [address] [place] [address] Adelaida Carrion NP [address] [place] [address] documented as of this encounter Procedures Procedure Name Priority Date/Time Associated Diagnosis Comments XR CHEST 1 VIEW Routine 07/11/2023 9:09 AM EDT documented in this encounter Results * XR chest 1 view (07/11/2023 9:09 AM EDT) Anatomical Region Laterality Modality Chest Radiographic Nelda ging Adelaida Carrion SOUND RANGING CREWMEMBER IMG XR PROCEDURES Final Result documented in this encounter Visit Diagnoses Not on filedocumented in this encounter Additional Health Concerns Assessment Noted Time PHQ-9 Depression Total Score: 8 05/18/19 24 5:00 PM EST documented as of this encounter Care Teams Global Sourcing Manager Relationship Specialty Start Date End Date José Luis Roberts MD [address] [place] [address] PCP - General Family Medicine 05/18/23 01/26/24 Unallocated, Noms Provider, [address] [place] [address] PCP - General Family Medicine 01/27/24 02/01/24 José Luis Roberts MD [address] [place] [address] PCP - General Family Medicine 02/02/24 Adelaida Carrion NP Referring Physician Nurse Practitioner 10/14/22 Miriam Suarez DO [address] [place] [address] Referring Physician Neurology 06/29/23 Mathew Parra LPN Licensed Practical Nurse Family Medicine 07/23/23 Diana De Leon, ADRIAN [address] [place], [place] [address] Licensed Practical Nurse Family Medicine 12/18/2302/11 Adelaida Carrion NP [address] [place] [address] Nurse Practitioner Family Medicine 01/27/24 Bong Rosado, [place] [address] [place] [address] Family Medicine 02/12/24 Juany Leggett PA [address] [place] [address] Physician Photo Stylist Neurology 07/26/24 documented as of this encounter
--- OUTSIDE RECORDS SUMMARY | 2024-09-29 10:28 | XMS_ITS | Encounter Summary ---
Author Organization [facility] Address [address] [place] [address] Care Team Providers Care Cardiac Care Unit Nurse Name Role Phone Adelaida Carrion NP Unavailable [phone] José Luis Roberts MD Primary Care Provider [phone] José Luis Roberts MD Primary Care Provider [phone] Miriam Suarez DO Unavailable [phone] [place], Ardana HEAD OF CYTOGENETICS Unavailable Unavailable Fran Parradana HEAD OF CYTOGENETICS Unavailable Unavailable Diana De Leon HEAD OF CYTOGENETICS Unavailable Unallocated, Noms Provider Primary Care Provi kellee Adelaida Carrion SENIOR FINANCIAL CONSULTANT Unavailable [phone] José Luis Roberts MD Primary Care Provider [phone] Bong Rosado MA Unavailable [phone] Juany Leggett Unavailable Encounter Details Date Type Department Care Team (Late st Contact Info) Description 01/09/2023 Abstract [facility] [address] [facility] [address] [place] [address] Travon Hines PA [address] [place] [address] [place] [address] Social History Tobacco Use Types Packs/Day Years [...] Visit [facility] [address] [place] [address] Adelaida Carrion NP [address] [place] [address] documented as of this encounter Visit Diagnoses Not on filedocumented in this encounter Care Teams Cardiac Care Unit Nurse Relationship Specialty Start Date End Date José Luis Roberts MD PCP - General Family Medicine 10/14/22 05/17/23 José Luis Roberts MD [address] [place] [address] PCP - General Family Medicine 05/18/23 01/26/24 Unallocated, Johan Sierra MD [address] [place] [address] PCP - General Family Medicine 01/27/24 02/01/24 José Luis Roberts MD [address] [place] [address] PCP - General Family Medicine 02/02/24 Adelaida Carrion NP Referring Physician Nurse Practitioner 10/14/22 Miriam Suarez DO [address] [place], [place] [address] Referring Physician Neurology 06/29/23 Mathew Parra LPN Registered Nurse Family Medicine 07/07/23 07/08/23 Mathew Parra LPN Licensed Practical Nurse Family Medicine 07/23/23 Diana De Leon LPN [address] [place] [address] Licensed Practical Nurse Family Medicine 12/18/2302/11 Adelaida Carrion NP [address] [place] [address] Nurse Practitioner Family Medicine 01/27/24 Bong Rosado, [place] [address] [place] [address] Family Medicine 02/12/24 Juany Leggett PA [address] [place] [address] Physician Scheduling Representative Neurology 07/26/24 documented as of this encounter
--- OUTSIDE RECORDS SUMMARY | 2024-09-29 10:28 | XMS_ITS | Clinical Summary ---
Author Organization [facility] Healthcare Address [address] [place] [address] Care Team Providers Care Counter Waiter Name Role Phone Miriam Suarez DO Unavailable [phone] Adelaida Carrion NP Unavailable [phone] José Luis Roberts MD Primary Care Provider [phone] Bong Rosado MA Unavailable [phone] Juany Leggett Unavailable Allergies Active Allergy Reactions Criticality Noted Date Comments Eszopiclone Hallucinations,Anaph ylaxis High 09/21/2023 Altered mental status and non responsive Levetiracetam Hallucinations,Other Medium 12/12/2021 Milnacipran Hallucinations,Other ,Unknown Medium 12/12/2021 Other Other 12/12/2021 Penicillins Anaphylaxis High 12/12/2021 Prochlorperazine Unknown,Other Medium 12/12/2021 Tetracycline Hives,Unknown High 12/12/2021 Wound Dressing Adhesive Rash,Unknown Medium 09/19/2022 Medications Multiple Vitamins-Minerals (BARIATRIC MULTIVITAMINS/IRO N PO) Pt taking OTC ([email or web address]) Active biotin 5 MG tablet Pt taking OTC ([email or web address][employer]com) Active Calcium Citrate-Vitamin D (CITRACAL + D PO) Pt taking OTC (Fingo) Active Magnesium 400 MG capsule Pt taking OTC(Kinoos) Active traZODone (Desyrel) 150 MG tablet Take [...] the ECHO on file from 05/10/2019 at [facility], as well as ECHO report from Mara Sampson earlier this year Well woman exam with routine gynecological exam 02/16/2024 Assessment & Plan (02/16/2024 6:57 AM EST): THIN PREP, fu as per PAP results indicate Monthly BSE Calcium/vit D supplement unless chronic conditions indicate not Exercise as chronic conditions allow Needs flu shot 01/28/2024 AVM (arteriovenous malformation) brain ([facility]) 10/11/2023 Vascular malformation ([facility]) 10/11/2023 Brain lesion 10/11/2023 Carpal tunnel syndrome, [...] (09/21/2023 12:47 PM EDT): Reviewed notes from [facility]'s Former cigarette smoker 08/17/2023 Overview (08/19/2023): [...] your machine and tubing/filters etc: [facility] Doctor that manages your OSMANY: Daniela Assessment [...] 1 twice a day #14 pills, Lot [id number], exp 06/29 Acute cough 07/14/2023 10/21/2023 Assessment & Plan (08/17/2023 10:06 AM EDT): resolved Influenza 07/14/2023 10/21/2023 Acute cystitis with hematuria 05/21/2023 10/21/2023 Right sided weakness 05/18/2023 024 Hemorrhoid 05/18/2023 03/16/2024 Overview (05/18/2023): int/external hemorrhoids Brain vascular malformation ([facility]) 05/18/2023 03/16/2024 Constipation 05/18/2023 08/17/2023 Colon polyps [...] of the risks of continued smoking: stroke, UT, all forms of cancer, lung disease, and [...] Generic External Data 09/21/2024 Patient Outreach [facility] [address] [place] [address] Bong Rosado MA 09/19/2024 Abstract [facility] [address] [place] [address] Adelaida Carrion NP 08/30/2024 Patient Outreach [place] [address] [place] [address] Bong Rosado MA 08/16/2024 11:30 AM EDT Office Visit [facility] [address] [place] [address] Adelaida Carrion NP Primary hypertension (Primary Dx); Bronchitis; Bilateral lower extremity edema; Morbid (severe) obesity due to excess calories ([facility]); Pre-diabetes; Allergic rhinitis, unspecified seasonality, unspecified trigger; Encounter for screening mammogram for malignant neoplasm of breast; Former cigarette smoker 08/16/2024 Bamboo flowsheet [facility] [address] [place] [address] Adelaida Carrion NP 08/08/2024 [facility] [address] [place] [address] José Luis Roberts MD 07/27/2024 11:30 AM EDT Office Visit [facility] [address] [place] [address] Adelaida Carrion NP Primary hypertension (Primary Dx); Morbid (severe) obesity due to excess calories ([facility]); Essential (primary) hypertension ; Allergic rhinitis, unspecified; Gastro-esophageal reflux disease without esophagitis; Bilateral lower extremity edema; Bronchitis 07/27/2024 Bamboo flowsheet [facility] [address] [place] [address] Adelaida Carrion NP 07/26/2024 11:00 AM EDT Office Visit 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 [address] [address] Junay Leggett PA Restless leg 07/08/2024 Refill [facility] [place] [address] [place] [address] [place] [address] Juany Leggett PA Restless leg from Last [...] How often do you attend adventist or gnosticism serv ices? Never 08/16/2023 Do [...] Recorded Patient Health Questionnaire-2 Score 2 09/21/2023 [facility] - [...] [facility] [address] [place] [address] Adelaida Carrion NP [address] [place] [address] Health Maintenance Due Date Last Done Comments [...] EDT Narrative 09/26/2024 5:04 PM EDT The [address] [address] [address] Scan Report Signed Patient: NASIM BE MR#: [id number] : 1960 Acct:[id number] Age/Sex: 63 / F ADM Date: 09/26/24 Loc: MAMMO Attending Dr: Adelaida Carrion NP Ordering Physician: Adelaida Carrion NP Date of Service: 09/26/24 Procedure(s): CT lung screening low-dose Accession Number(s): [id number] cc: Adelaida Carrion NP [place] [id number] Patient Name: NASIM BE MRN: [id number] date: 1960 Sex: F Assigned Patient Location: MAMMO Current Patient Location: RAD Accession/Order Number: [id number] Exam Date: 09/26/2024 16:58 Report Date: 09/26/2024 [...] Guadalupe M.D. 09/26/2024 5:02 PM Dictation Location: [place] [address] Electronically authenticated by: [id number] Y Date: 09/26/2024 17:02 Dictated By: Shaheed Guadalupe M.D. Signed By: 09/26/241703 DD/ 01 TD/TT: Copy Supervisor: Procedure Note Radiology, Radiologist, MD - 09/26/2024 [place] [address] CT Scan Report Signed Patient: NASIM BE LMR#: [id number] : 1960cct:[id number] Age/Sex: 63 / FADM Date: 09/26/24 [facility] Attending Dr: Adelaida Carrion NP Ordering Physician: Adelaida Carrion NP Date of Service: 09/26/24 Procedure(s): CT lung screening low-dose Accession Number(s): [id number] cc: Adelaida Carrion NP [place] [id number] Patient Name: NASIM BE MRN: [id number] date: 1960 Sex: F Assigned Patient Location: [facility] Current Patient Location: [facility] Accession/Order Number: [id number] Exam Date: 09/26/2024 16:58 Report Date: 09/26/2024 [...] Guadalupe M.D. 09/26/2024 5:02 PM Dictation Location: [place] [address] Electronically authenticated by: [id number] Y Date: 7:02 Dictated By: Shaheed Guadalupe M.D. Signed By:09/26/24 1704 DD/ 01 TD/TT: Copy Supervisor: Adelaida Carrion NP [facility] Final Result * MM TOMOSYNTHESIS SCREENING BI (09/26/2024 4:42 PM EDT) Anatomical Region Laterality Modality Other 09/26/2024 4:42 PM EDT Narrative 09/26/2024 4:43 [place] [address] Mammography Report Signed Patient: NASIM BE MR#: [id number] : 1960 Acct:[id number] Age/Sex: 63 / F ADM Date: 09/26/24 Loc: MAMMO Attending Dr: Adelaida Carrion NP Ordering Physician: Adelaida Carrion NP Results: Date of Service: 09/26/24 Follow Up: Procedure(s): MM tomosynthesis screening BI Accession Number(s): [id number] cc: Adelaida Carrion NP Patient Name: NASIM BE MR#: [id number] : 1960 Exam Date: 09/26/2024 Ordering Doctor: [...] Treatments None Family Cancers None LOCATION: The [facility] BREAST COMPOSITION: There are scattered areas of [...] M.D. Signed By: 09/26/241642 DD/ 41 TD/TT: Copy Supervisor: Procedure Note Radiology, Radiologist, MD - 09/26/2024 [place] [address] Mammography Report Signed Patient: NASIM BE LMR#: [id number] : 1960cct:[id number] Age/Sex: 63 / FADM Date: 09/26/24 Loc: MAMMO Attending Dr: Adelaida Carrion NP Ordering Physician: Adelaida Carrion NPResults: Date of Service: 09/26/24Follow Up: Procedure(s): MM tomosynthesis screening BI Accession Number(s): [id number] cc: Adelaida Carrion NP Patient Name: NASIM BE MR#: [id number] : 1960 Exam Date: 09/26/2024 Ordering Doctor: [...] Treatments None Family Cancers None LOCATION: The [facility] BREAST COMPOSITION: There are scattered areas of [...] Grover M.D. Signed By:09/26/241642 DD/ 41 TD/TT: Copy Supervisor: Adelaida Carrion NP [facility] Final Result * XR SHOULDER RT MIN 2V (09/26/2024 1:35 PM EDT) Anatomical Region Laterality Modality Other 09/26/2024 1:35 PM EDT Narrative 09/26/2024 1:38 [place] [address] XRay Report Signed Patient: NASIM BE MR#: [id number] : 1960 Acct:[id number] Age/Sex: 63 / F ADM Date: 09/26/24 Loc: RAD Attending Dr: Elizabeth Culp NP Ordering Physician: Elizabeth Culp NP Date of Service: 09/26/24 Procedure(s): XR shoulder RT min 2V Accession Number(s): [id number] cc: Adelaida Carrion NP; Elizabeth Culp NP [place] [address] Patient Name: NASIM BE MRN: [id number] date: 1960 Sex: F Assigned Patient Location: [facility] Current Patient Location: [facility] Accession/Order Number: [id number] Exam Date: 09/26/2024 13:34 Report Date: 09/26/2024 [...] Guadalupe M.D. 09/26/2024 1:35 PM Dictation Location: [place] [address] Electronically authenticated by: [id number] Y Date: 09/26/2024 13:35 Dictated By: Shaheed Guadalupe M.D. Signed By: 09/26/24 1338 DD/ 34 TD/TT: Copy Supervisor: Procedure Note Radiology, Radiologist, MD - 09/26/[address] [address] XRay Report Signed Patient: NASIM BE LMR#: [id number] : 1960cct:[id number] Age/Sex: 63 / FADM Date: 09/26/24 Loc: RAD Attending Dr: Elizabeth Culp NP Ordering Physician: Elizabeth Culp NP Date of Service: 09/26/24 Procedure(s): XR shoulder RT min 2V Accession Number(s): [id number] cc: Adelaida Carrion NP; Elizabeth Culp NP The [address] [address] Patient Name: NASIM BE MRN: [id number] date: 1960 Sex: F Assigned Patient Location: [facility] Current Patient Location: [facility] Accession/Order Number: [id number] Exam Date: 09/26/2024 13:34 Report Date: 09/26/2024 [...] Guadalupe M.D. 09/26/2024 1:35 PM Dictation Location: [place] [address] Electronically authenticated by: [id number] Y Date: 3:35 Dictated By: Shaheed Guadalupe M.D. Signed By:09/26/24 1338 DD/ 1335 TD/TT: Copy Supervisor: us Generic External Data Provider [facility] Final Result * POCT glycosylated hemoglobin (Hb A1C) docked device (08/16/2024 11:53 AM EDT) Hemoglobin A1C 5.6 Blood Venous blood specimen / Unknown 08/16/2024 11:53 AM EDT Adelaida Carrion SILO PAINTER POINT OF CARE TEST ENTER/EDIT O RDERABLES Final Result from Last 3 Months Insurance [employer] MEDICARE Advance Directives Documents on File Type Date Recorded Patient Home Health Clinical Supervisor Expl anation Power of Tape Maker 03/16/2024 9:42 AM darian r of criminal defense attorney Power of Tape Maker 03/10/2024 3:12 PM POA Care Teams Counter Waiter Relationship Specialty Start Date End Date José Luis Roberts MD [address] [place] [address] PCP - General Family Medicine 02/02/24 Miriam Suarez DO [address] [place] [address] Referring Physician Neurology 06/29/23 Adelaida Carrion NP [address] [place] [address] Nurse Practitioner Family Medicine 01/27/24 Bong Rosado, [place] [address] [place], [place] [address] Family Medicine 02/12/24 Juany Leggett PA [address] [place] [address] Physician Kindergarten Assistant Neurology 07/26/24
--- OUTSIDE RECORDS SUMMARY | 2024-09-29 10:28 | XMS_ITS | Encounter Summary ---
Author Organization [facility] Address [address] [place] [address] Care Team Providers Care Cabinet Professional Name Role Phone Adelaida Carrion NP Unavailable [phone] José Luis Roberts MD Primary Care Provider [phone] José Luis Roberts MD Primary Care Provider [phone] Miriam Suarez DO Unavailable [phone] Ailey, Ardana HYDRAULIC LIFT OPERATOR Unavailable Unavailable Fran Parradana HYDRAULIC LIFT OPERATOR Unavailable Unavailable Diana De Leon HYDRAULIC LIFT OPERATOR Unavailable Unallocated, [facility] Provider Primary Care Provi kellee Adelaida Carrion UPSET WELDING MACHINE OPERATOR Unavailable [phone] José Luis Roberts MD Primary Care Provider [phone] Bong Rosado MA Unavailable [phone] Juany Leggett Unavailable Encounter Details Date Type Department Care Team (Late st Contact Info) Description 01/23/2023 Abstract [facility] [address] [facility] [address] [place] [address] Travon Hines PA [address] [place] [facility] 150 [place] [address] Social History Tobacco Use Types Packs/Day Years [...] Visit [facility] [address] [place] [address] Adelaida Carrion NP [address] [place] [address] documented as of this encounter Visit Diagnoses Not on filedocumented in this encounter Care Teams Cabinet Professional Relationship Specialty Start Date End Date José Luis Roberts MD PCP - General Family Medicine 10/14/22 05/17/23 José Luis Roberts MD [address] [place] [address] PCP - General Family Medicine 05/18/23 01/26/24 Unallocated, Johan Sierra MD [address] [place] [address] PCP - General Family Medicine 01/27/24 02/01/24 José Luis Roberts MD [address] [place] [address] PCP - General Family Medicine 02/02/24 Adelaida Carrion NP Referring Physician Nurse Practitioner 10/14/22 Miriam Suarez DO [address] [place], [place] [address] Referring Physician Neurology 06/29/23 Mathew Parra LPN Registered Nurse Family Medicine 07/07/23 07/08/23 Mathew Parra LPN Licensed Practical Nurse Family Medicine 07/23/23 Diana De Leon LPN [address] [place] [address] Licensed Practical Nurse Family Medicine 12/18/2302/11 Adelaida Carrion NP [address] [place] [address] Nurse Practitioner Family Medicine 01/27/24 Bong Rosado, [place] [address] [place] [place] [address] Family Medicine 02/12/24 Juany Leggett PA [address] [place] [address] Physician Mask Designer Neurology 07/26/24 documented as of this encounter
--- OUTSIDE RECORDS SUMMARY | 2024-09-29 10:28 | XMS_ITS | Clinical Summary ---
Author Organization [facility] Address [id number] [address] [place] [address] Care Team Providers Care Talent Development Director Name Role Phone Adelaida Carrion APRN-CEMENT OR CONCRETE FINISHING SUPERVISOR Primary Care Provider Medications gabapentin (NEURONTIN) 600 [...] on file Insurance [employer] MEDICARE Care Teams Talent Development Director Relationship Specialty Start Date End Date Adelaida Carrion, ROSS-CEMENT OR CONCRETE FINISHING SUPERVISOR PCP - General Nurse Practitioner 12/10/16
--- OUTSIDE RECORDS SUMMARY | 2024-09-29 10:28 | XMS_ITS | Encounter Summary ---
Author Organization [facility] Address [address] [place] [address] Care Team Providers Care Caustics Loader Name Role Phone Adelaida Carrion NP Unavailable [phone] José Luis Roberts MD Primary Care Provider [phone] José Luis Roberts MD Primary Care Provider [phone] Miriam Suarez DO Unavailable [phone] Aline, Ardana COST COORDINATOR Unavailable Unavailable Aida Ardana COST COORDINATOR Unavailable Unavailable Diana De Leon COST COORDINATOR Unavailable Unallocated, Noms Provider Primary Care Provi kellee Adelaida Carrion MARKETING DEVELOPER Unavailable José Luis Roberts MD Primary Care Provider [phone] Bong Rosado MA Unavailable [phone] Juany Leggett Unavailable Encounter Details Date Type Department Care Team (Late st Contact Info) Description 04/08/2023 Orders Only [facility] [address] [place] [address] Adelaida Carrion MARKETING DEVELOPER [address] [place] [address] Social History Tobacco Use Types Packs/Day Years [...] Office Visit [facility] [address] [place] [address] Adelaida Carrion NP [address] [place] [address] documented as of this encounter Procedures Procedure Name Priority Date/Time Associated Diagnosis Comments MISCELLANEOUS LAB TEST Routine 03/23/2023 2:45 PM EST documented in this encounter Results * - Miscellaneous Test (03/23/2023 2:45 PM EST) Adelaida Carrion MARKETING DEVELOPER LAB BLOOD ORDERABLES Final Resu lt documented in this encounter Visit Diagnoses Not on filedocumented in this encounter Care Teams Caustics Loader Relationship Specialty Start Date End Date José Luis Roberts MD PCP - General Family Medicine 10/14/22 05/17/23 José Luis Roberts MD [address] [place] [address] PCP - General Family Medicine 05/18/23 01/26/24 Unallocated, Johan Sierra MD [address] [place] [address] PCP - General Family Medicine 01/27/24 02/01/24 José Luis Roberts MD [address] [place] [address] PCP - General Family Medicine 02/02/24 Adelaida Carrion NP Referring Physician Nurse Practitioner 10/14/22 Miriam Suarez DO [address] [place], [place] [address] Referring Physician Neurology 06/29/23 Mathew Parra LPN Registered Nurse Family Medicine 07/07/23 07/08/23 Mathew Parra LPN Licensed Practical Nurse Family Medicine 07/23/23 Diana De Leon LPN [address] [place] [address] Licensed Practical Nurse Family Medicine 12/18/2302/11 Adelaida Carrion NP [address] [place] [address] Nurse Practitioner Family Medicine 01/27/24 Bong Rosado, [place] [address] [place] [address] Family Medicine 02/12/24 Juany Leggett PA [address] [place], [place] [address] Physician [employer] Planners Neurology 07/26/24 documented as of this encounter
--- OUTSIDE RECORDS SUMMARY | 2024-09-29 10:28 | XMS_ITS | Encounter Summary ---
Author Organization [facility] Address [address] [place] [address] Care Team Providers Care Wireless Sales Manager Name Role Phone Daniela Miriam DO Unavailable Adelaida Carrion NP Unavailable [phone] José Luis Roberts MD Primary Care Provider [phone] Bong Rosado MA Unavailable [phone] Juany Leggett Unavailable Encounter Details Date [...] declined 08/16/2023 How often do you attend uatsdin or orthodox serv ices? Never 08/16/2023 Do you belong to any clubs o r organizations such as uatsdin groups, unions, fraternal or athletic groups, or [...] Recorded Patient Health Questionnaire-2 Score 2 09/21/2023 [facility] - Occupational Stress Questionnaire Answer Date [...] Visit [facility] [address] [place] [address] Adelaida Carrion NP [address] [place] [address] documented as of this encounter Procedures Procedure Name Priority Date/Time Associated Diagnosis Comments XR SHOULDER RT MIN 2V 09/26/2024 1:35 PM EDT documented in this encounter Results * XR SHOULDER RT MIN 2V (09/26/2024 1:35 PM EDT) Anatomical Region Laterality Modality Other 09/26/2024 1:35 PM EDT Narrative 09/26/2024 1:38 [place] [address] XRay Report Signed Patient: NASIM INGRAM MR#: [id number] : 1960 Acct:[id number] Age/Sex: 63 / F ADM Date: 09/26/24 Loc: [facility] Attending Dr: Elizabeth Cano NP Ordering Physician: Elizabeth Cano NP Date of Service: 09/26/24 Procedure(s): XR shoulder RT min 2V Accession Number(s): [id number] cc: Adelaida Carrion SIGNAL TOWER OPERATOR; Elizabeth Cano NP The [place] [address] Patient Name: NASIM INGRAM MRN: [id number] date: 1960 Sex: F Assigned Patient Location: [facility] Current Patient Location: [facility] Accession/Order Number: [id number] Exam Date: 09/26/2024 13:34 Report Date: 09/26/2024 [...] Guadalupe M.D. 09/26/2024 1:35 PM Dictation Location: [place] [address] Electronically authenticated by: [id number] Y Date: 09/26/2024 13:35 Dictated By: Shaheed Guadalupe M.D. Signed By: 09/26/24 1338 DD/ 34 TD/TT: Stem Crusher: Procedure Note Radiology, Radiologist, MD - 09/26/2024 [place] [address] XRay Report Signed Patient: NASIM INGRAM R#: [id number] : 1960cct:[id number] Age/Sex: 63 / FADM Date: 09/26/24 Loc: RAD Attending Dr: Elizabeth Cano NP Ordering Physician: Elizabeth Cano NP Date of Service: 09/26/24 Procedure(s): XR shoulder RT min 2V Accession Number(s): [id number] cc: Adelaida Carrion NP; Elizabeth Cano NP The [place] [id number] Patient Name: NASIM INGRAM MRN: [id number] date: 1960 Sex: F Assigned Patient Location: [facility] Current Patient Location: [facility] Accession/Order Number: [id number] Exam Date: 09/26/2024 13:34 Report Date: 09/26/2024 [...] Guadalupe M.D. 09/26/2024 1:35 PM Dictation Location: [place] [address] Electronically authenticated by: [id number] Y Date: 3:35 Dictated By: Shaheed Guadalupe M.D. Signed By:09/26/24 1338 DD/ 1335 TD/TT: Stem Crusher: us Generic External Data Provider [facility] Final Result documented in this encounter Visit Diagnoses Not on filedocumented in this encounter Additional Health Concerns Assessment Noted Time PHQ-9 Depression Total Score: 8 05/18/19 24 5:00 PM EST documented as of this encounter Care Teams Wireless Sales Manager Relationship Specialty Start Date End Date José Luis Roberts MD [address] [place] [address] PCP - General Family Medicine 02/02/24 Miriam Suarez DO [address] [place] [address] Referring Physician Neurology 06/29/23 Adelaida Carrion NP [address] [place] [address] Nurse Practitioner Family Medicine 01/27/24 Bong Rosado MA [address] [place] [address] Family Medicine 02/12/24 Juany Leggett PA [address] [place] [address] Physician Business Sales Consultant Neurology 07/26/24 documented as of this encounter
--- OUTSIDE RECORDS SUMMARY | 2024-09-29 10:28 | XMS_ITS | Encounter Summary ---
Author Organization [facility] Address [address] [place] [address] Care Team Providers Care Viner Operator Name Role Phone Adelaida Carrion NP Unavailable [phone] José Luis Roberts MD Primary Care Provider [phone] Miriam Suarez DO Unavailable [phone] Mathew Parra MILK PASTEURIZER Unavailable Unavailable Diana De Leon LPN Unavailable Unallocated, Noms Provider Primary Care Provi kellee Adelaida Carrion NP Unavailable [phone] José Luis Roberts MD Primary Care Provider [phone] Bong Rosado MA Unavailable [phone] Juany Leggett Unavailable Encounter Details Date Type Department Care Team (Late st Contact Info) Description 12/02/2023 Orders Only [facility] [address] [place] [address] Bhakti Culp NP [address] [place] [address] Social History Tobacco Use Types [...] declined 08/16/2023 How often do you attend christian or mandaen serv ices? Never 08/16/2023 Do you belong to any clubs o r organizations such as christian groups, unions, fraternal or athletic groups, or [...] Recorded Patient Health Questionnaire-2 Score 2 09/21/2023 [facility] Occupat ional Health - [...] Office Visit [facility] [address] [place] [address] Adelaida Carrion NP [address] [place] [address] documented as of this encounter Procedures Procedure [...] documented as of this encounter Care Teams Viner Operator Relationship Specialty Start Date End Date José Luis Roberts MD [address] [place] [address] PCP - General Family Medicine 05/18/23 01/26/24 Unallocated, Johan Sierra MD [address] [place] [address] PCP - General Family Medicine 01/27/24 02/01/24 José Luis Roberts MD [address] [place] [address] PCP - General Family Medicine 02/02/24 Adelaida Carrion NP Referring Physician Nurse Practitioner 10/14/22 Miriam Suarez DO [address] [place], [place] [address] Referring Physician Neurology 06/29/23 Mathew Parra LPN Licensed Practical Nurse Family Medicine 07/23/23 Diana De Leon LPN [address] [place] [address] Licensed Practical Nurse Family Medicine 12/18/2302/11 Adelaida Carrion NP [address] [place] [address] Nurse Practitioner Family Medicine 01/27/24 Bong Rosado MA [address] [place] [address] Family Medicine 02/12/24 Juany Leggett PA [address] [place] [address] Physician Control Panel Operator Crude Unit Neurology 07/26/24 documented as of this encounter
--- OUTSIDE RECORDS SUMMARY | 2024-09-29 10:28 | XMS_ITS | Encounter Summary ---
Author Organization [facility] Address [address] [place] [address] Care Team Providers Care Character Artist Name Role Phone Adelaida Carrion NP Unavailable [phone] José Luis Roberts MD Primary Care Provider [phone] José Luis Roberts MD Primary Care Provider [phone] Miriam Suarez DO Unavailable [phone] [place], Ardana COUNTER POCKET SEWER Unavailable Unavailable Aida Ardana COUNTER POCKET SEWER Unavailable Unavailable Diana De Leon COUNTER POCKET SEWER Unavailable Unallocated, Noms Provider Primary Care Provi kellee Adelaida Carrion NP Unavailable [phone] José Luis Roberts MD Primary Care Provider [phone] Bong Rosado MA Unavailable [phone] Juany Leggett Unavailable Encounter Details Date Type Department Care Team (Late st Contact Info) Description 03/26/2023 Clinisync Result Encounter [facility] External Department Unsolicited Adelaida Carrion NP [address] [place] [place] [address] Social History Tobacco Use Types Packs/Day Years [...] Visit [facility] [address] [place] [address] Adelaida Carrion NP [address] [place] [address] documented as of this encounter Procedures Procedure Name Priority Date/Time Associated Diagnosis Comments XR FOOT LT MIN 3V 03/26/2023 8:1 4 AM EST documented in this encounter Results * XR FOOT LT MIN 3V (03/26/2023 8:14 AM EST) Anatomical Region Laterality Modality Other 03/26/2023 8:14 AM EST Narrative 03/26/2023 8:17 AM EST [address] [address] XRay Report Signed Patient: NASIM INGRAM MR#: [id number] : 1960 Acct:[id number] Age/Sex: 62 / F ADM Date: 03/25/23 Loc: [facility] Attending Dr: Adelaida Carrion NP Ordering Physician: Adelaida Carrion NP Date of Service: 03/25/23 Procedure(s): XR foot LT min 3V Accession Number(s): [id number] cc: Adelaida Carrion NP [address] [address] Patient Name: NASIM INGRAM MRN: [id number] date: 1960 Sex: F Assigned Patient Location: [facility] Current Patient Location: Accession/Order Number: [id number] Exam Date: 03/25/2023 15:34 Report Date: 03/26/2023 08:14 At the request of: ADELAIDA CARRION Procedure: XR foot LT min 3V PROCEDURE: XR foot LT min 3V DATE: 03/25/2023 2:34 PM WORKPLACE TRAINER AND ASSESSOR COMPARISONS: None CLINICAL INDICATION: left foot pain [...] M.D. Signed By: 03/26/23816 DD/ 3 TD/TT: Termite Control Representative: Procedure Note Radiology, Radiologist, MD - 03/26/2023 [place] [address] XRay Report Signed Patient: NASIM INGRAM LMR#: [id number] : 1960cct:[id number] Age/Sex: 62 / FADM Date: 03/25/23 Loc: RAD Attending Dr: Adelaida Carrion NP Ordering Physician: Adelaida Carrion NP Date of Service: 03/25/23 Procedure(s): XR foot LT min 3V Accession Number(s): [id number] cc: Adelaida Carrion NP The [address] [address] Patient Name: NASIM INGRAM MRN: [id number] date: 1960 Sex: F Assigned Patient Location: [facility] Current Patient Location: Accession/Order Number: [id number] Exam Date: 03/25/2023 15:34 Report Date: 03/26/2023 08:14 At the request of: ADELAIDA CARRION Procedure: XR foot LT min 3V PROCEDURE: XR foot LT min 3V DATE: 03/25/2023 2:34 PM WORKPLACE TRAINER AND ASSESSOR COMPARISONS: None CLINICAL INDICATION: left foot pain [...] Bloom M.D. Signed By:03/26/23816 DD/ 3 TD/TT: Termite Control Representative: us Adelaida Carrion GROMMET MAN [facility] Final Result documented in this encounter Visit Diagnoses Not on filedocumented in this encounter Care Teams Character Artist Relationship Specialty Start Date End Date José Luis Roberts MD PCP - General Family Medicine 10/14/22 05/17/23 José Luis Roberts MD [address] [place] [address] PCP - General Family Medicine 05/18/23 01/26/24 Unallocated, Noms MD Mariela [address] [place] [address] PCP - General Family Medicine 01/27/24 02/01/24 José Luis Roberts MD [address] [place] [address] PCP - General Family Medicine 02/02/24 Adelaida Carrion NP Referring Physician Nurse Practitioner 10/14/22 Miriam Suarez DO [address] [place] [address] Referring Physician Neurology 06/29/23 Mathew Parra LPN Registered Nurse Family Medicine 07/07/23 07/08/23 Mathew Parra LPN Licensed Practical Nurse Family Medicine 07/23/23 Diana De Leon LPN [address] [facility] [place] [address] Licensed Practical Nurse Family Medicine 12/18/2302/11 Adelaida Carrion NP [address] [place] [address] Nurse Practitioner Family Medicine 01/27/24 Bong Rosado, [place] [address] [place] [address] Family Medicine 02/12/24 Juany Leggett PA [address] [place] [address] Physician Child & Adolescent Psychiatrist Neurology 07/26/24 documented as of this encounter
--- OUTSIDE RECORDS SUMMARY | 2024-09-29 10:28 | XMS_ITS | Referral Summary ---
Author Organization [facility] Address [address] [place] [address] Care Team Providers Care Motor Bike Mechanic Name Role Phone Unavailable Primary Care Provider [...]
--- OUTSIDE RECORDS SUMMARY | 2024-09-29 10:28 | XMS_ITS | Encounter Summary ---
Author Organization [facility] Address [address] [place] [address] Care Team Providers Care Workforce Development Specialist Name Role Phone Adelaida Carrion NP Unavailable [phone] José Luis Roberts MD Primary Care Provider [phone] Miriam Suarez DO Unavailable [phone] Mathew Parra BIGHT MAKER Unavailable Unavailable Diana De Leon BIGHT MAKER Unavailable Unallocated, Noms Provider Primary Care Provi kellee Adelaida Carrion NP Unavailable [phone] José Luis Roberts MD Primary Care Provider [phone] Bong Rosado MA Unavailable [phone] Juany Leggett Unavailable Encounter Details Date Type Department Care Team (Late st Contact Info) Description 08/26/2023 Orders Only [facility] [address] [place] [address] Arsalan Hagen MD [address] [address] Social History Tobacco Use Types Packs/Day Years [...] declined 08/16/2023 How often do you attend confucianism or buddhism serv ices? Never 08/16/2023 Do you belong to any clubs o r organizations such as confucianism groups, unions, fraternal or athletic groups, or [...] Recorded Patient Health Questionnaire-2 Score 0 08/17/2023 [facility] of Occupat ional Health - Occupational Stress [...] Office Visit [facility] [address] [place] [address] Adelaida Carrion, BRIANA [address] [place] [address] documented as of this encounter Procedures Procedure [...] documented as of this encounter Care Teams Workforce Development Specialist Relationship Specialty Start Date End Date José Luis Roberts MD [address] [place] [address] PCP - General Family Medicine 05/18/23 01/26/24 Unallocated, Johan Sierra MD [address] [place] [address] PCP - General Family Medicine 01/27/24 02/01/24 José Luis Roberts MD [address] [place] [address] PCP - General Family Medicine 02/02/24 Adelaida Carrion, BRIANA Referring Physician Nurse Practitioner 10/14/22 Miriam Suarez DO [address] [place], [place] [address] Referring Physician Neurology 06/29/23 Mathew Parra LPN Licensed Practical Nurse Family Medicine 07/23/23 Diana De Leon LPN [address] [place] [address] Licensed Practical Nurse Family Medicine 12/18/2302/11 Adelaida Carrion NP [address] [facility] [place] [address] Nurse Practitioner Family Medicine 01/27/24 Bnog Rosado, [place] [address] [place] [address] Family Medicine 02/12/24 Juany Leggett PA [address] [place] [address] Physician Plant Changer Neurology 07/26/24 documented as of this encounter
--- OUTSIDE RECORDS SUMMARY | 2024-09-29 10:29 | XMS_ITS | Encounter Summary ---
Author Organization [facility] Address [address] [place] [address] Care Team Providers Care Engraver Copperplate Name Role Phone Adelaida Carrion NP Unavailable [phone] José Luis Roberts MD Primary Care Provider [phone] José Luis Roberts MD Primary Care Provider [phone] Miriam Suarez DO Unavailable [phone] [place], Ardana ASSEMBLER FOR PULLER OVER HAND Unavailable Unavailable Aida Ardana ASSEMBLER FOR PULLER OVER HAND Unavailable Unavailable Diana De Leon ASSEMBLER FOR PULLER OVER HAND Unavailable Unallocated, Noms Provider Primary Care Provi kellee Adelaida Carrion NP Unavailable [phone] José Luis Roberts MD Primary Care Provider [phone] Bong Rosado MA Unavailable [phone] Juany Leggett Unavailable Encounter Details Date Type Department Care Team (Late st Contact Info) Description 04/09/2023 Abstract [facility] [address] [place] [address] Adelaida Carrion NP [address] [place] [address] Social History Tobacco Use Types Packs/Day Years [...] Office Visit JOHAN MANDUJANO [address] [place] [address] Adelaida Carrion, BRIANA [address] [place] [address] documented as of this encounter Visit Diagnoses Not on filedocumented in this encounter Care Teams Engraver Copperplate Relationship Specialty Start Date End Date José Luis Roberts MD PCP - General Family Medicine 10/14/22 05/17/23 José Luis Roberts MD [address] [place] [address] PCP - General Family Medicine 05/18/23 01/26/24 Unallocated, Johan Sierra MD [address] [place] [address] PCP - General Family Medicine 01/27/24 02/01/24 José Luis Roberts MD [address] [place] [address] PCP - General Family Medicine 02/02/24 Adelaida Carrion NP Referring Physician Nurse Practitioner 10/14/22 Miriam Suarez DO [address] [place], [place] [address] Referring Physician Neurology 06/29/23 Mathew Parra LPN Registered Nurse Family Medicine 07/07/23 07/08/23 Mathew Parra LPN Licensed Practical Nurse Family Medicine 07/23/23 Diana De Leon LPN [address] [place] [address] Licensed Practical Nurse Family Medicine 12/18/2302/11 Adelaida Carrion NP [address] [place] [place] [address] Nurse Practitioner Family Medicine 01/27/24 Bong Rosado MA [address] [place] [address] Family Medicine 02/12/24 Juany Leggett PA [address] [place] [address] Physician Deckhand Shrimp Boat Neurology 07/26/24 documented as of this encounter
--- OUTSIDE RECORDS SUMMARY | 2024-09-29 10:29 | XMS_ITS | Encounter Summary ---
Author Organization [facility] Address [address] [place] [address] Care Team Providers Care Wash Box Operator Name Role Phone Miriam Suarez Unavailable [phone] Adelaida Carrion NP Unavailable [phone] José Luis Roberts MD Primary Care Provider Bong Rosado MA Unavailable [phone] Juany Leggett Unavailable Encounter Details Date Type Department Care Team (Late st Contact Info) Description 09/19/2024 Abstract [facility] [address] [place] [address] Adelaida Carrion, BRIANA [address] [place] [address] Social History Tobacco Use Types [...] declined 08/16/2023 How often do you attend baptism or methodist serv ices? Never 08/16/2023 Do you belong to any clubs o r organizations such as baptism groups, unions, fraternal or athletic groups, or [...] Recorded Patient Health Questionnaire-2 Score 2 09/21/2023 [facility] of Occupat ional Health - [...] Visit [facility] [address] [place] [address] Adelaida Carrion NP [address] [place] [address] documented as of this encounter Visit Diagnoses Not on filedocumented in this encounter Additional Health Concerns Assessment Noted Time PHQ-9 Depression Total Score: 8 05/18/19 24 5:00 PM EST documented as of this encounter Care Teams Wash Box Operator Relationship Specialty Start Date End Date José Luis Roberts MD [address] [place] [address] PCP - General Family Medicine 02/02/24 Miriam Suarez DO [address] [place] [address] Referring Physician Neurology 06/29/23 Adelaida Carrion NP [address] [place] [address] Nurse Practitioner Family Medicine 01/27/24 Bong Rosado MA [address] [place] [address] Family Medicine 02/12/24 Juany Leggett PA [address] [place] [address] Physician Turn Operator Neurology 07/26/24 documented as of this encounter
--- OUTSIDE RECORDS SUMMARY | 2024-09-29 10:29 | XMS_ITS | Encounter Summary ---
Author Organization [facility] Address [address] [place] [address] Care Team Providers Care Record Maker Name Role Phone Miriam Suarez DO Unavailable [phone] Adelaida Carrion NP Unavailable [phone] José Luis Roberts MD Primary Care Provider [phone] Bong Rosado MA Unavailable [phone] Juany Leggett Unavailable Encounter Details Date Type Department Care Team (Late st Contact Info) Description 09/21/2024 Patient Outreach [facility] POP[facility] [address] [place] [address] Bong Rosado MA [address] [place] [address] Social History Tobacco Use Types Packs/Day Years [...] How often do you attend christianity or latter day serv ices? Never 08/16/2023 [...] [facility] of Occupat ional Health - Occupational [...] She [facility] [place] Group therapy is really helping, she said. [...] handicap placard as it expires in January. Strategic Planning Manager added request to appt info for pt [...] Office Visit [facility] [address] [place] [address] Adelaida Carrion NP [address] [place] [address] documented as of this encounter Visit Diagnoses Diagnosis Primary hypertension- Primary Unspecified essential hypertension Bipolar disorder with severe depression (HCC) documented in this encounter Additional Health Concerns Assessment Noted Time PHQ-9 Depression Total Score: 8 05/18/19 24 5:00 PM EST documented as of this encounter Care Teams Record Maker Relationship Specialty Start Date End Date José Luis Roberts MD [address] [place] [address] PCP - General Family Medicine 02/02/24 Miriam Suarez DO [address] [place] [address] Referring Physician Neurology 06/29/23 Adelaida Carrion NP [address] [place] [address] Nurse Practitioner Family Medicine 01/27/24 Bong Rosado MA [address] [place] [place] [address] Family Medicine 02/12/24 Juany Leggett PA [address] [place] [address] Physician Guest Service Aide Neurology 07/26/24 documented as of this encounter
--- OUTSIDE RECORDS SUMMARY | 2024-09-29 10:29 | XMS_ITS | Encounter Summary ---
Author Organization [facility] Address [address] [place] [address] Care Team Providers Care Ribbon Cutter Name Role Phone Adelaida Carrion NP Unavailable [phone] José Luis Roberts MD Primary Care Provider Miriam Suarez DO Unavailable [phone] Mathew Parra AUDIT DIRECTOR Unavailable Unavailable Mathew Parra AUDIT DIRECTOR Unavailable Unavailable Diana De Leon AUDIT DIRECTOR Unavailable Unallocated, Noms Provider Primary Care Provi kellee Adelaida Carrion NP Unavailable [phone] José Luis Roberts MD Primary Care Provider [phone] Bong Rosado MA Unavailable [phone] Juany Leggett Unavailable Encounter Details Date Type Department Care Team (Late st Contact Info) Description 05/19/2023 Clinisync Result Encounter [facility] External Department Unsolicited Adelaida Carrion NP [address] [place] [address] Social History Tobacco Use Types Packs/Day Years [...] Never 05/18/2023 How often do you attend worship or confucianist serv ices? Never 05/18/2023 Do you belong [...] Recorded Patient Health Questionnaire-2 Score 1 05/18/2023 [facility] - Occupational Stress Questionnaire [...] to sleep or slept in a senior living (including now)? No 05/18/2023 Comments Unknown Sex [...] Visit [facility] [address] [place] [address] Adelaida Carrion NP [address] [place] [address] documented as of this encounter Procedures Procedure Name Priority Date/Time Associated Diagnosis Comments XR HIP LT MIN 2V 05/19/2023 9:31 AM EST documented in this encounter Results * XR HIP LT MIN 2V (05/19/2023 9:31 AM EST) Anatomical Region Laterality Modality Other 05/19/2023 9:31 AM EST Narrative 05/19/2023 9:34 AM EST [address] [address] XRay Report Signed Patient: NASIM BE MR#: [id number] : 1960 Acct:[id number] Age/Sex: 62 / F ADM Date: 05/19/23 Loc: RAD Attending Dr: Adelaida Carrion FIRER LOCOMOTIVE Ordering Physician: Adelaida Carrion NP Date of Service: 05/19/23 Procedure(s): XR hip LT min 2V Accession Number(s): [id number] cc: Adelaida Carrion NP [address] [address] Patient Name: NASIM BE MRN: [id number] date: 1960 Sex: F Assigned Patient Location: [facility] Current Patient Location: RAD Accession/Order Number: [id number] Exam Date: 05/19/2023 07:50 Report Date: 05/19/2023 [...] M.D. Signed By: 05/19/2334 DD/ 0 TD/TT: Creative Guru: Procedure Note Radiology, Radiologist, - 05/19/2023 [place] [address] XRay Report Signed Patient: NASIM BE LMR#: [id number] : 1960cct:[id number] Age/Sex: 62 / FADM Date: 05/19/23 Loc: RAD Attending Dr: Adelaida Carrion FIRER LOCOMOTIVE Ordering Physician: Adelaida Carrion NP Date of Service: 05/19/23 Procedure(s): XR hip LT min 2V Accession Number(s): [id number] cc: Adelaida Carrion NP The [place] [address] Patient Name: NASIM BE MRN: [id number] date: 1960 Sex: F Assigned Patient Location: [facility] Current Patient Location: [facility] Accession/Order Number: [id number] Exam Date: 05/19/2023 07:50 Report Date: 05/19/2023 [...] Maciel M.D. Signed By:05/19/2334 DD/ 0 TD/TT: Creative Guru: us Adelaida Carrion NP [facility] Final Result documented in this encounter Visit Diagnoses Not on filedocumented in this encounter Additional Health Concerns Assessment Noted Time PHQ-9 Depression Total Score: 8 05/18/19 24 5:00 PM EST documented as of this encounter Care Teams Ribbon Cutter Relationship Specialty Start Date End Date José Luis Roberts MD [address] [place] [address] PCP - General Family Medicine 05/18/23 01/26/24 Unallocated, Johan Sierra MD [address] [place] [address] PCP - General Family Medicine 01/27/24 02/01/24 José Luis Roberts MD [address] [place] [address] PCP - General Family Medicine 02/02/24 Adelaida Carrion NP Referring Physician Nurse Practitioner 10/14/22 Miriam Suarez DO [address] [place] [address] Referring Physician Neurology 06/29/23 Mathew Parra LPN Registered Nurse Family Medicine 07/07/23 07/08/23 Mathew Parra LPN Licensed Practical Nurse Family Medicine 07/23/23 Diana De Leon LPN [address] [place] [address] Licensed Practical Nurse Family Medicine 12/18/2302/11 Adelaida Carrion NP [address] [place] [address] Nurse Practitioner Family Medicine 01/27/24 Bong Rosado MA [address] [place] [address] Family Medicine 02/12/24 Juany Leggett PA [address] [place] [address] Physician Chemical Checker Neurology 07/26/24 documented as of this encounter
--- NOTE | 2024-09-29 10:45 | XR_ITS ---
The [address] [address] Patient Name: MICHELLE BE MRN: [id number] date: 1960 Sex: F Assigned Patient Location: [facility] Current Patient Location: [facility] Accession/Order Number: [id number] Exam Date: 09/29/2024 11:20 Report Date: 09/29/2024 11:23 At the request of: ELIZABETH CANO NP Procedure: XR hip BHUMI BILATERAL HIPS - 2 views each COMPARISON: Left hip 05/19/2023 and right 06/08/2019 CLINICAL DATA: Chronic bilateral hip pain. No injury. AP and lateral views were obtained on both sides. There is osteopenia. No acute fractures or dislocation are noted. The hip joint spaces are symmetric. No significant hypertrophy is seen. There are enthesophytes at the iliac crests. The SI joints are intact and show minor sclerosis. The soft tissues are diffusely prominent related to body habitus. XR/XR hip BHUMI IMPRESSION: NO ACUTE BONY FINDINGS. Impression dictated by: Edith Bernal M.D. 09/29/2024 11:23 AM Dictation Location: [place] [address] Electronically authenticated by: [id number] Date: 09/29/2024 11:23
== END 2024-09-29 10:21 | disposition home or self-care (01) ==
LOC: RAD 10:25
PROVIDERS: PCP Nurse Practitioner; Visit Provider Nurse Practitioner
DX: M25.551 Pain in right hip (principal); M25.552 Pain in left hip
CPT/HCPCS: 73522

== ENCOUNTER 2024-10-08 02:10 | Observation (INO) | payer MEDICARE, SELFPAY ==
--- OUTSIDE RECORDS SUMMARY | 2020-04-11 07:00 | XMS_ITS | Continuity of Care Document ---
Author Organization [employer] [facility] Address [address] [place] [address] [place] [address] Phone Care Team Providers Care Funding Specialist Name Role Phone Kayce Chanel CNP Unavailable [...] Copied on Encounter OFFICE/OUTPAT IENT VISIT, EST [employer] [facility], [address] [place] [address], [id number], [place] tel:[phone] [facility] No Information Darío Devries. [address] [place] [address], [id number], [place]. tel:[phone] Referring Provider: Kayce Chanel, [address] [place] [address] 222, [place], [address] . tel:[phone] [employer] [facility], [address] [place] [address] [address], [place], [place], [address], [place] tel:[phone] [facility] No Information Darío Devries. [address], [place], [place], [address], [place]. tel:[phone] Referring Provider: Kayce Chanel, [address] [place] [address] [address], [facility] [place], [address] . tel:[phone] [employer] [facility], [address] [place] [address] [address], [place], [place], [address], [place] tel:[phone] [facility] No Information Darío Devries. [facility] [address] [facility] [address], [place], [place], [address], [place]. tel:[phone] Referring Provider: Kayce Chanel, [address] [place] [address] [address], [place], [address] . tel:[phone] [employer] [facility], [address] [place] [address] [address], [place], [place], [address], [place] tel:[phone] [facility] No Information Darío Devries. [facility] [address] [facility] [address], [place], [place], [address], [place]. tel:[phone] Referring Provider: Kayce Chanel, [facility] [address] [facility] [address], [place], [address] . tel:[phone] [employer] [facility], [address] [place] [address] [address], [place], [place], [address], [place] tel:[phone] [facility] No Information Darío Devries. [address] [place] [address] [address], [facility] [place], [id number], [place]. tel:[phone] Referring Provider: Kayce Chanel, [address] [place] [address] [address], [facility] [place], [address] . tel:[phone] [employer] [facility], [address] [place] [address] [address], [place], [address], [place] tel:[phone] [facility] No Information Yulia Anguiano. [address] [facility] [address], [place], [place], [address], [place]. tel:[phone] Referring Provider: Silvio Acevedo, [address] [facility] [address], [place], [address] . tel:[phone] OFFICE/OUTPAT IENT VISIT, [facility] [employer] [facility], [address] [place] [address] [address], [place], [place], [address], [place] tel:[phone] [facility] No Information Yulia Anguiano. [address] [facility] [address], [place], [place], [address], [place]. tel:[phone] Referring Provider: Silvio Acevedo, [address] [facility] [address], [place], [address] . tel:[phone] [facility] [employer] [facility], [address] [place] [address] [address], [place], [address], [place] tel:[phone] [facility] No Information No Information OFFICE/OUTPAT IENT VISIT, [employer] [facility], [address] [place] [address] [address], [place], [place], [address], [place] tel:[phone] [facility] No Information Yulia Anguiano. [address] [facility] [address], [place], [place], [address], [place]. tel:[phone] Referring Provider: Silvio Acevedo, [address] [facility] [address], [place], [address] . tel:[phone] OFFICE/OUTPAT IENT VISIT, [employer] [facility], [address] [place] [address] [address], [place], [place], [address], [place] tel:[phone] [facility] No Information Yulia Anguiano. [address] [facility] [address], [place], [place], [address], [place]. tel:[phone] Referring Provider: Silvio Acevedo, [address] [facility] [address], [place], [address] . tel:[phone] OFFICE/OUTPAT IENT VISIT, [facility], [address] [facility] [address], [place], [place], [address], [place] tel:[phone] [facility] No Information Yulia Anguiano. [address] [place] [address] [address], [place], [place], [address], [place]. tel:[phone] Referring Provider: Silvio Acevedo, [address] [place] [address] [address], [place], [address] . tel:[phone] Family History Family Member Type Diagnosis Age At Onset No Information Payers Payer name Insurance type Covered libertarian ID Authorgerard thakur(s) [facility] Medicare Solutions [id number] Social History Type Description Quantity Date Captured [...]
[2024-10-08] VITALS (10 sets, daily range): BP systolic 144–174; BP diastolic 85–109; PULSE 78–120; TEMP 36.4–36.9; O2SAT 95–96; BMI 43.6; BMI 46.3
--- OUTSIDE RECORDS SUMMARY | 2024-10-08 02:18 | XMS_ITS | Encounter Summary ---
Author Organization [facility] Address [address] [place] [address] Care Team Providers Care Sinter Machine Operator Name Role Phone Miriam Suarez DO Unavailable [phone] Adelaida Carrion NP Unavailable [phone] José Luis Roberts MD Primary Care Provider Bong Rosado MA Unavailable [phone] Juany Leggett Unavailable Encounter Details Date Type Department Care Team (Late st Contact Info) Description 03/21/2024 Orders Only [facility] [address] [place] [address] Adelaida Carrion, BRIANA [address] [place] [address] Social History Tobacco Use Types Packs/Day Years [...] How often do you attend adventism or advent serv ices? Never 08/16/2023 Do [...] Patient Health Questionnaire-2 Score 2 09/21/2023 [facility] - [...] Visit [facility] [address] [place] [address] Adelaida Carrion NP [address] [place] [address] documented as of this encounter Procedures Procedure [...] * SCANNED LABS (03/21/2024 2:30 PM EST) [facility] LAB CHG PERFORMABLES Final Res ult * SCANNED LABS (03/21/2024 2:21 PM EST) Adelaida Carrion NP LAB CHG PERFORMABLES Final Resu lt * ECG 12 lead (03/21/2024 2:19 PM EST) Result [facility] ECG ORDERABLES Final Result * ECG 12 lead (03/21/2024 2:15 PM EST) Result [facility] ECG ORDERABLES Final Result * ECG 12 lead (03/21/2024 2:10 PM EST) Clayton Galvan MD ECG ORDERABLES Final Result * ECG 12 lead (03/21/2024 2:07 PM EST) Rochelle Keene MD ECG ORDERABLES Final Result * Complete echocardiogram dobutamine stress test (03/21/2024 2:03 PM EST) Anatomical Region Laterality Modality Ultrasound Adelaida [address] MANAGER CV ECHO PROCEDURES Final Result documented in this encounter Visit Diagnoses Not on filedocumented in this encounter Additional Health Concerns Assessment Noted Time PHQ-9 Depression Total Score: 8 05/18/19 24 5:00 PM EST documented as of this encounter Care Teams Sinter Machine Operator Relationship Specialty Start Date End Date José Luis Roberts MD [address] [place] [address] PCP - General Family Medicine 02/02/24 Miriam Suarez DO [address] [place], [place] [address] Referring Physician Neurology 06/29/23 Adelaida Carrion NP [address] [place] [address] Nurse Practitioner Family Medicine 01/27/24 Bong Rosado, [place] [address] [place] [address] Family Medicine 02/12/24 Juany Leggett PA [address] [place], [place] [address] Physician Cyber Defense Incident Responder Neurology 07/26/24 documented as of this encounter
--- OUTSIDE RECORDS SUMMARY | 2024-10-08 02:18 | XMS_ITS | Encounter Summary ---
Author Organization [facility] Address [address] [place] [address] Care Team Providers Care Hypoid Gear Generator Name Role Phone Adelaida Carrion NP Unavailable [phone] José Luis Roberts MD Primary Care Provider [phone] Miriam Suarez DO Unavailable [phone] Mathew Parra INBOUND SALES MANAGER Unavailable Unavailable Diana De Leon LPN Unavailable Unallocated, Noms Provider Primary Care Provi kellee Adelaida Carrion NP Unavailable [phone] José Luis Roberts MD Primary Care Provider [phone] Bong Rosado MA Unavailable [phone] Juany Leggett Unavailable Encounter Details Date Type Department Care Team (Late st Contact Info) Description 09/02/2023 Orders Only [facility] [address] [place] [address] Shaikh Alberto MD [address] [place] [address] Social History Tobacco Use Types [...] declined 08/16/2023 How often do you attend bahai or druze serv ices? Never 08/16/2023 Do you belong to any clubs o r organizations such as bahai groups, unions, fraternal or athletic groups, or [...] Recorded Patient Health Questionnaire-2 Score 0 08/17/2023 [facility] Occup[facility] ional [facility] - Occupational [...] Visit [facility] [address] [place] [address] Adelaida Carrion, PHOTOSTAT OPERATOR HELPER [address] [place] [address] documented as of this encounter Procedures Procedure [...] documented as of this encounter Care Teams Hypoid Gear Generator Relationship Specialty Start Date End Date José Luis Roberts MD [address] [place] [address] PCP - General Family Medicine 05/18/23 01/26/24 Unallocated, Johan Sierra MD [facility] [place] [address] PCP - General Family Medicine 01/27/24 02/01/24 José Luis Roberts MD [address] [place] [address] PCP - General Family Medicine 02/02/24 Adelaida Carrion, BRIANA Referring Physician Nurse Practitioner 10/14/22 Miriam Suarez DO [address] [place], [place] [address] Referring Physician Neurology 06/29/23 Mahtew Parra LPN Licensed Practical Nurse Family Medicine 07/23/23 Diana De Leon LPN [address] [place] [address] Licensed Practical Nurse Family Medicine 12/18/2302/11 Adelaida Carrion NP [address] [place] [address] Nurse Practitioner Family Medicine 01/27/24 Bong Rosado, [place] [address] [place] [address] Family Medicine 02/12/24 Juany Leggett PA [address] [place] [address] Physician Merchandise Flow Team Leader Neurology 07/26/24 documented as of this encounter
--- OUTSIDE RECORDS SUMMARY | 2024-10-08 02:18 | XMS_ITS | Encounter Summary ---
Author Organization [facility] Address [address] [place] [address] Care Team Providers Care Client Representative Name Role Phone Miriam Suarez Unavailable [phone] Adelaida Carrion NP Unavailable [phone] José Luis Roberts MD Primary Care Provider [phone] Bong Rosado MA Unavailable [phone] Juany Leggett Unavailable Encounter Details Date Type Department Care Team (Late st Contact Info) Description 09/29/2024 Abstract [facility] [address] [place] [address] Adelaida Carrion, BRIANA [address] [place] [address] Social History Tobacco Use Types [...] How often do you attend scientologist or druze serv ices? Never 08/16/2023 Do [...] Recorded Patient Health Questionnaire-2 Score 2 09/21/2023 [facility] Occupat ional [...] Visit [facility] [address] [place] [address] Adelaida Carrion NP [address] [place] [address] documented as of this encounter Visit Diagnoses Not on filedocumented in this encounter Additional Health Concerns Assessment Noted Time PHQ-9 Depression Total Score: 8 05/18/19 24 5:00 PM EST documented as of this encounter Care Teams Client Representative Relationship Specialty Start Date End Date José Luis Roberts MD [address] [place] [address] PCP - General Family Medicine 02/02/24 Miriam Suarez DO [address] [place] [address] Referring Physician Neurology 06/29/23 Adelaida Carrion NP [address] [place] [address] Nurse Practitioner Family Medicine 01/27/24 Bong Rosado MA [address] [place] [address] Family Medicine 02/12/24 Juany Leggett PA [address] [place] [address] Physician Coal Handling Supervisor Neurology 07/26/24 documented as of this encounter
--- OUTSIDE RECORDS SUMMARY | 2024-10-08 02:18 | XMS_ITS | Clinical Summary ---
Author Organization [facility] Address [address] [place] [address] Care Team Providers Care Packager And Strapper Name Role Phone Adelaida Carrion APRN - [...] mouth daily Active Multiple Vitamins-Minera ls (THERAPEUTIC MULTIVITAMIN-IN NERALS) tablet Take 1 tablet by mouth [...] = 0.6 oz pur e alcohol) Rarely [facility] Utilities Answer Date Recorded In the past [...] slept in a fci (including now)? No 08/24/2023 Food Insecurity Answer [...] Wellness Visit (Medicare Advantage) 04/06/2024 Flu vaccine (#1) 11/04/2024 02/13/2023, 05/28/2018 GFR test (Diabetes, CKD 3-4, OR last [...] - 145 mmol/L 01/20/2024 11:15 PM EDT [facility] Potassium 4.6 3.7 - 5.3 mmol/L 01/20/2024 11:15 PM EDT [facility] Comment: Specimen hemolysis has exceeded the interference as defined by Paul. Value may be falsely increased. Suggest recollection if clinically indicated. Chloride 106 98 - 107 mmol/L 01/20/2024 11:15 PM EDT [facility] CO2 24 20 - 31 mmol/L 01/20/2024 11:15 PM T [facility] Anion Gap 10 9 - 16 mmol/L 01/20/2024 11:15 PM EDT [facility] Glucose 97 74 - 99 mg/dL 01/20/2024 11:15 PM T [facility] BUN 17 8 - 23 mg/dL 01/20/2024 11:15 PM T [facility] Creatinine 1.2(H) 0.50 - 0.90 mg/dL 01/20/2024 11:15 PM T [facility] Est, Glom Filt Rate 54(L) >60 mL/min/1.7 3m2 01/20/2024 11:15 PM EDT [facility] Comment: These results are not intended [...] 9 - 20 01/20/2024 11:15 PM EDT [facility] Calcium 8.8 8.6 - 10.4 mg/dL 01/20/2024 11:15 PM T [facility] Total Protein 6.5(L) 6.6 - 8.7 g/dL 01/20/2024 11:15 PM T [facility] Albumin 3.9 3.5 - 5.2 g/dL 01/20/2024 11:15 PM T [facility] Albumin/Globulin Ratio 1.5 1.0 - 2.5 01/20/2024 11:15 PM EDT [facility] Total Bilirubin 0.2 0.00 - 1.20 mg/dL 01/20/2024 11:15 PM T [facility] Alkaline Phosphatase 86 35 - 104 U/L 01/20/2024 11:15 PM EDT [facility] ALT 20 10 - 35 U/L 01/20/2024 11:15 PM T [facility] AST 27 10 - 35 U/L 01/20/2024 11:15 PM T [facility] Blood BLOOD SPECIMEN / Unknown 01/20/2024 11:15 PM EDT 01/21/2024 12:31 AM EDT us Rochelle Lopes MD CHEMISTRY ORDERABLES Final Resul t [facility] [address] [place] [address], [facility] [phone] from Last 3 Months or Most Recently Relevant to Health Maintenance Insurance Advance Directives Documents on File Type Date Recorded Patient Environmental Manager Expl anation ACP-Advance Directive 09/04/2023 1:02 PM * Full Code (Latest Code Status on File) Date Activated Date Inactivated Comments 08/24/2023 3:10 PM 09/03/2023 6:08 PM Care Teams Packager And Strapper Relationship Specialty Start Date End Date Adelaida Carrion, AUTO CLAIMS ADJUSTER - COMPLAINT ADJUSTER [address] [place] [address] PCP - General Nurse Practitioner 01/04/18
--- OUTSIDE RECORDS SUMMARY | 2024-10-08 02:18 | XMS_ITS | Encounter Summary ---
Author Organization [facility] Address [address] [place] [address] Care Team Providers Care Information Security Systems Instructor Name Role Phone Adelaida Carrion NP Unavailable [phone] José Luis Roberts MD Primary Care Provider [phone] Miriam Suarez DO Unavailable [phone] Mathew Parra PROCESS OWNER Unavailable Unavailable Diana De Leon PROCESS OWNER Unavailable Unallocated, Noms Provider Primary Care Provi kellee Adelaida Carrion NP Unavailable [phone] José Luis Roberts MD Primary Care Provider [phone] Bong Rosado MA Unavailable [phone] Juany Leggett Unavailable Encounter Details Date Type Department Care Team (Late st Contact Info) Description 09/21/2023 Orders Only [facility] [address] [place] [address] Adelaida Carrion NP [address] [facility] [place] [address] Social History Tobacco Use Types [...] How often do you attend alevism or jainism serv ices? Never 08/16/2023 Do [...] [facility] [address] [place] [address] Adelaida Carrion NP [address] [place] [address] documented as of this encounter Procedures Procedure [...] documented as of this encounter Care Teams Information Security Systems Instructor Relationship Specialty Start Date End Date José Luis Roberts MD [address] [place] [address] PCP - General Family Medicine 05/18/23 01/26/24 Unallocated, Johan Sierra MD [address] [place] [address] PCP - General Family Medicine 01/27/24 02/01/24 José Luis Roberts MD [address] [place] [address] PCP - General Family Medicine 02/02/24 Adelaida Carrion NP Referring Physician Nurse Practitioner 10/14/22 Miriam Suarez DO [address] [place] [address] Referring Physician Neurology 06/29/23 Mathew Parra LPN Licensed Practical Nurse Family Medicine 07/23/23 Diana De Leon LPN [address] [place] [address] Licensed Practical Nurse Family Medicine 12/18/2302/11 Adelaida Carrion NP [address] [place] [address] Nurse Practitioner Family Medicine 01/27/24 Bong Rosado, [place] [address] [place] [address] Family Medicine 02/12/24 Juany Leggett PA [address] [place], [place] [address] Physician Director Of Clinical Trials Neurology 07/26/24 documented as of this encounter
--- OUTSIDE RECORDS SUMMARY | 2024-10-08 02:18 | XMS_ITS | Encounter Summary ---
Author Organization [facility] Address [address] [place] [address] Care Team Providers Care Work And Family Life Consultant Name Role Phone Daniela Miriam GRAHAM Unavailable [phone] Adelaida Carrion NP Unavailable [phone] José Luis Roberts MD Primary Care Provider Bong Rosado MA Unavailable [phone] Juany Leggett Unavailable Encounter Details Date Type Department Care Team (Late st Contact Info) Description 09/26/2024 Clinisync Result Encounter [facility] External Department Unsolicited Adelaida Carrion, BRIANA [address] [place] [address] Social History Tobacco Use Types Packs/Day Years [...] How often do you attend temple or taoism serv ices? Never 08/16/2023 Do [...] Recorded Patient Health Questionnaire-2 Score 2 09/21/2023 [facility] Occupat ional Health - [...] Visit [facility] [address] [place] [address] Adelaida Carrion NP [address] [place] [address] documented as of this encounter Procedures Procedure Name Priority Date/Time Associated Diagnosis Comments MM TOMOSYNTHESIS SCREENING BI 09/26/2024 4:42 PM EDT documented in this encounter Results * MM TOMOSYNTHESIS SCREENING BI (09/26/2024 4:42 PM EDT) Anatomical Region Laterality Modality Other 09/26/2024 4:42 PM EDT Narrative 09/26/2024 4:43 [place] [address] Mammography Report Signed Patient: NASIM INGRAM MR#: [id number] : 1960 Acct:[id number] Age/Sex: 63 / F ADM Date: 09/26/24 Loc: MAMMO Attending Dr: Adelaida Carrion NP Ordering Physician: Adelaida Carrion NP Results: Date of Service: 09/26/24 Follow Up: Procedure(s): MM tomosynthesis screening BI Accession Number(s): [id number] cc: Adelaida Carrion NP Patient Name: NASIM INGRAM MR#: [id number] : 1960 Exam Date: 09/26/2024 Ordering Doctor: [...] Treatments None Family Cancers None LOCATION: [facility] BREAST COMPOSITION: There are scattered areas [...] M.D. Signed By: 09/26/241642 DD/ 41 TD/TT: Pipe Line Inspector: Procedure Note Radiology, Radiologist, MD - 09/26/2024 [place] [address] Mammography Report Signed Patient: NASIM INGRAM LMR#: [id number] : 1960cct:[id number] Age/Sex: 63 / FADM Date: 09/26/24 Loc: MAMMO Attending Dr: Adelaida Carrion NP Ordering Physician: Adelaida Carrion NPResults: Date of Service: 09/26/24Follow Up: Procedure(s): MM tomosynthesis screening BI Accession Number(s): [id number] cc: Adelaida Carrion NP Patient Name: NASIM INGRAM MR#: [id number] : 1960 Exam Date: 09/26/2024 Ordering Doctor: [...] Treatments None Family Cancers None LOCATION: [facility] BREAST COMPOSITION: There are scattered areas [...] Grover M.D. Signed By:09/26/241642 DD/ 41 TD/TT: Pipe Line Inspector: us Adelaida Carrion NP [facility] Final Result documented in this encounter Visit Diagnoses Not on filedocumented in this encounter Additional Health Concerns Assessment Noted Time PHQ-9 Depression Total Score: 8 05/18/19 24 5:00 PM EST documented as of this encounter Care Teams Work And Family Life Consultant Relationship Specialty Start Date End Date José Luis Roberts MD [address] [place] [address] PCP - General Family Medicine 02/02/24 Miriam Suarez DO [address] [place] [address] Referring Physician Neurology 06/29/23 Adelaida Carrion NP [address] [place] [address] Nurse Practitioner Family Medicine 01/27/24 Bong Rosado MA [address] [place] [address] Family Medicine 02/12/24 Juany Leggett PA [address] [place] [address] Physician Short Piece Handler Neurology 07/26/24 documented as of this encounter
--- OUTSIDE RECORDS SUMMARY | 2024-10-08 02:18 | XMS_ITS | Encounter Summary ---
Author Organization [facility] Address [address] [place] [address] Care Team Providers Care Manager Fashion Name Role Phone Adelaida Carrion NP Unavailable [phone] José Luis Roberts MD Primary Care Provider [phone] Miriam Suarez DO Unavailable [phone] Mathew Parra CLINICAL APPLICATION SPECIALIST Unavailable Unavailable Diana De Leon LPN Unavailable Unallocated, Noms Provider Primary Care Provi kellee Adelaida Carrion NP Unavailable [phone] José Luis Roberts MD Primary Care Provider [phone] Bong Rosado MA Unavailable [phone] Juany Leggett Unavailable Encounter Details Date Type Department Care Team (Late st Contact Info) Description 10/27/2023 Abstract [facility] [address] [place] [address] Unallocated, Noms Provider, [address] [place], [place] [address] Social History Tobacco Use Types Packs/Day Years [...] How often do you attend mormonism or cheondoism serv ices? Never 08/16/2023 Do you belong [...] Recorded Patient Health Questionnaire-2 Score 2 09/21/2023 [facility] of Occupat ional Health - Occupational Stress [...] Office Visit [facility] [address] [place] [address] Adelaida Carrion, BRIANA [address] [place] [address] documented as of this encounter Visit Diagnoses Not on filedocumented in this encounter Additional Health Concerns Assessment Noted Time PHQ-9 Depression Total Score: 8 05/18/19 24 5:00 PM EST documented as of this encounter Care Teams Manager Fashion Relationship Specialty Start Date End Date José Luis Roberts MD [address] [place] [address] PCP - General Family Medicine 05/18/23 01/26/24 Unallocated, Johan Sierra MD [address] [facility] [place] [address] PCP - General Family Medicine 01/27/24 02/01/24 José Luis Roberts MD [address] [place] [address] PCP - General Family Medicine 02/02/24 Adelaida Carrion NP Referring Physician Nurse Practitioner 10/14/22 Miriam Suarez DO [address] [place] [address] Referring Physician Neurology 06/29/23 Mathew Parra LPN Licensed Practical Nurse Family Medicine 07/23/23 Diana De Leon LPN [address] [place], [place] [address] Licensed Practical Nurse Family Medicine 12/18/2302/11 Adelaida Carrion NP [address] [place] [address] Nurse Practitioner Family Medicine 01/27/24 Bong Rosado, [place] [address] [place] [address] Family Medicine 02/12/24 Juany Leggett PA [address] [place] [address] Physician Ground Wood Supervisor Neurology 07/26/24 documented as of this encounter
--- OUTSIDE RECORDS SUMMARY | 2024-10-08 02:18 | XMS_ITS | Encounter Summary ---
Author Organization [facility] Address [address] [place] [address] Care Team Providers Care Special Education Resource Room Teacher Name Role Phone Miriam Suarez DO Unavailable [phone] Adelaida Carrion NP Unavailable [phone] José Luis Roberts MD Primary Care Provider [phone] Bong Rosado MA Unavailable [phone] Juany Leggett Unavailable Reason for Visit * Reason Onset Date Comments Med Refill 04/12/2024 Encounter Details Date Type Department Care Team (Late st Contact Info) Description 04/12/2024 Refill [facility] [address] [place] [address] José Luis Roberts MD [address] [place] [address] Social History Tobacco Use Types Packs/Day Years [...] How often do you attend scientologist or oriental orthodox serv ices? Never 08/16/2023 [...] Recorded Patient Health Questionnaire-2 Score 2 09/21/2023 [facility] [place] of Occupat ional Health - Occupational Stress [...] [facility] [address] [place] [address] Adelaida Carrion NP [address] [place] [address] documented as of this encounter Visit Diagnoses Not on filedocumented in this encounter Additional Health Concerns Assessment Noted Time PHQ-9 Depression Total Score: 8 05/18/19 24 5:00 PM EST documented as of this encounter Care Teams Special Education Resource Room Teacher Relationship Specialty Start Date End Date José Luis Roberts MD [address] [place] [address] PCP - General Family Medicine 02/02/24 Miriam Suarez DO [address] [place] [address] Referring Physician Neurology 06/29/23 Adelaida Carrion NP [address] [place] [address] Nurse Practitioner Family Medicine 01/27/24 Bong Rosado MA [address] [place] [address] Family Medicine 02/12/24 Juany Leggett PA [address] [place] [address] Physician Marine Engineer Neurology 07/26/24 documented as of this encounter
--- OUTSIDE RECORDS SUMMARY | 2024-10-08 02:18 | XMS_ITS | Encounter Summary ---
Author Organization [facility] Address [address] [place] [address] Care Team Providers Care Printing Bindery Assistant Name Role Phone Miriam Suarez DO Unavailable [phone] Adelaida Carrion NP Unavailable [phone] José Luis Roebrts MD Primary Care Provider Bong Rosado MA Unavailable [phone] Juany Leggett Unavailable Encounter Details Date Type Department Care Team (Late st Contact Info) Description 03/02/2024 Orders Only [facility] [address] [place] [address] Adelaida Carrion, BRIANA [address] [place] [address] Social History Tobacco Use Types Packs/Day Years [...] How often do you attend episcopal or hoahaoism serv ices? Never 08/16/2023 Do [...] Health Questionnaire-2 Score 2 09/21/2023 [facility]ational [facility] Questionnaire [...] Visit [facility] [address] [place] [address] Adelaida Carrion NP [address] [place] [address] documented as of this encounter Procedures Procedure Name Priority Date/Time Associated Diagnosis Comments SCANNED LABS Routine 03/02/2024 7:33 AM EST documented in this encounter Results * SCANNED LABS (03/02/2024 7:33 AM EST) Adelaida Carrion HEADRIG [facility] CHG PERFORMABLES Final Resu lt documented in this encounter Visit Diagnoses Not on filedocumented in this encounter Additional Health Concerns Assessment Noted Time PHQ-9 Depression Total Score: 8 05/18/19 24 5:00 PM EST documented as of this encounter Care Teams Printing Bindery Assistant Relationship Specialty Start Date End Date José Luis Roberts MD [address] [place] [address] PCP - General Family Medicine 02/02/24 Miriam Suarez DO [address] [place] [address] Referring Physician Neurology 06/29/23 Adelaida Carrion NP [address] [place] [address] Nurse Practitioner Family Medicine 01/27/24 Bong Rosado MA [address] [place] [address] Family Medicine 02/12/24 Juany Leggett PA [address] [place] [address] Physician Rural Route Carrier Neurology 07/26/24 documented as of this encounter
--- OUTSIDE RECORDS SUMMARY | 2024-10-08 02:18 | XMS_ITS | Encounter Summary ---
Author Organization [facility] Address [address] [place] [address] Care Team Providers Care Armature Coil Winder Name Role Phone Daniela Miriam GRAHAM Unavailable [phone] Adelaida Carrion NP Unavailable [phone] José Luis Roberts MD Primary Care Provider [phone] Bong Rosado MA Unavailable [phone] Juany Leggett Unavailable Encounter Details Date Type Department Care Team (Late st Contact Info) Description 09/26/2024 Clinisync Result Encounter [facility] External Department Unsolicited Adelaida Carrion, BRIANA [address] [place] [address] Social History Tobacco Use Types Packs/Day Years [...] How often do you attend advent or uatsdin serv ices? Never 08/16/2023 Do you belong [...] Recorded Patient Health Questionnaire-2 Score 2 09/21/2023 [facility] Occupat ional Health - [...] Visit [facility] [address] [place] [address] Adelaida Carrion NP [address] [place] [address] documented as of this encounter Procedures Procedure Name Priority Date/Time Associated Diagnosis Comments CT LUNG SCREENING LOW DOSE 09/26/2024 5:02 PM EDT documented in this encounter Results * CT LUNG SCREENING LOW DOSE (09/26/2024 5:02 PM EDT) Anatomical Region Laterality Modality Other 09/26/2024 5:02 PM EDT Narrative 09/26/2024 5:04 PM EDT The [address] [address] [address] Scan Report Signed Patient: NASIM INGRAM MR#: [id number] : 1960 Acct:[id number] Age/Sex: 63 / F ADM Date: 09/26/24 Loc: MAMMO Attending Dr: Adelaida Carrion NP Ordering Physician: Adelaida Carrion NP Date of Service: 09/26/24 Procedure(s): CT lung screening low-dose Accession Number(s): [id number] cc: Adelaida Carrion NP The [address] [address] Patient Name: NASIM INGRAM MRN: [id number] date: 1960 Sex: F [facility]: RAD Accession/Order Number: [id number] Exam Date: 09/26/2024 16:58 Report Date: 09/26/2024 [...] Guadalupe M.D. 09/26/2024 5:02 PM Dictation Location: [place] [address] Electronically authenticated by: [id number] Y Date: 09/26/2024 17:02 Dictated By: Shaheed Guadalupe M.D. Signed By: 09/26/241703 DD/ 01 TD/TT: Medical Record Clerk: Procedure Note Radiology, Radiologist, - 09/26/2024 [place] [address] CT Scan Report Signed Patient: NASIM INGRAM R#: [id number] : 1960cct:[id number] Age/Sex: 63 / FADM Date: 09/26/24 Loc: MAMMO Attending Dr: Adelaida Carrion NP Ordering Physician: Adelaida Carrion NP Date of Service: 09/26/24 Procedure(s): CT lung screening low-dose Accession Number(s): [id number] cc: Adelaida Carrion NP The [address] [address] Patient Name: NASIM INGRAM MRN: [facility]:[id number] date: 1960 Sex: F Assigned Patient Location: MAMMO Current Patient Location: RAD Accession/Order Number: [id number] Exam Date: 09/26/2024 16:58 Report Date: 09/26/2024 [...] Guadalupe M.D. 09/26/2024 5:02 PM Dictation Location: [place] [address] Electronically authenticated by: [id number] Y Date: 7:02 Dictated By: Shaheed Guadalupe M.D. Signed By:09/26/24 1704 DD/ 01 TD/TT: Medical Record Clerk: us Adelaida Carrion NP [facility] Final Result documented in this encounter Visit Diagnoses Not on filedocumented in this encounter Additional Health Concerns Assessment Noted Time PHQ-9 Depression Total Score: 8 05/18/19 24 5:00 PM EST documented as of this encounter Care Teams Armature Coil Winder Relationship Specialty Start Date End Date José Luis Roberts MD [address] [place] [address] PCP - General Family Medicine 02/02/24 Miriam Suarez DO [address] [place] [address] Referring Physician Neurology 06/29/23 Adelaida Carrion NP [address] [place] [address] Nurse Practitioner Family Medicine 01/27/24 Bong Rosado, [place] [address] [place] [address] Family Medicine 02/12/24 Juany Leggett PA [address] [place] [address] Physician Embedded Software Development Engineer Neurology 07/26/24 documented as of this encounter
--- OUTSIDE RECORDS SUMMARY | 2024-10-08 02:18 | XMS_ITS | Encounter Summary ---
Author Organization [facility] Address [address] [place] [address] Care Team Providers Care Stress Analyst Name Role Phone Adelaida Carrion NP Unavailable [phone] José Luis Roberts MD Primary Care Provider [phone] Miriam Suarez DO Unavailable [phone] Mathew Parra MAGNET VALVE ASSEMBLER Unavailable Unavailable Diana De Leon LPN Unavailable Unallocated, Noms Provider Primary Care Provi kellee Adelaida Carrion NP Unavailable [phone] José Luis Roberts MD Primary Care Provider [phone] Bong Rosado MA Unavailable [phone] Juany Leggett Unavailable Encounter Details Date Type Department Care Team (Late st Contact Info) Description 09/18/2023 Clinisync Result Encounter [facility] External Department Unsolicited Adelaida Carrion NP [address] [place] [address] Social History Tobacco Use Types Packs/Day Years [...] declined 08/16/2023 How often do you attend hinduism or christian serv ices? Never 08/16/2023 Do you belong to any clubs o r organizations such as hinduism groups, unions, fraternal or athletic groups, or [...] Recorded Patient Health Questionnaire-2 Score 2 09/21/2023 [facility] - Occupational [...] Office Visit [facility] [address] [place] [address] Adelaida Carrion NP [address] [place] [address] documented as of this encounter Procedures Procedure Name Priority Date/Time Associated Diagnosis Comments MM TOMOSYNTHESIS SCREENING BI 09/18/2023 1:42 PM EDT documented in this encounter Results * MM TOMOSYNTHESIS SCREENING BI (09/18/2023 1:42 PM EDT) Anatomical Region Laterality Modality Other 09/18/2023 1:42 PM EDT Narrative 09/18/2023 1:43 PM EDT The [address] [address] Mammography Report Signed Patient: NASIM INGRAM MR#: [id number] : 1960 Acct:[id number] Age/Sex: 62 / F ADM Date: 09/18/23 Loc: MAMMO Attending Dr: Adelaida Carrion PACKER DRIED BEEF Ordering Physician: Aichholz,Adelaida PACKER DRIED BEEF Results: Date of Service: 09/18/23 Follow Up: Procedure(s): MM tomosynthesis screening BI Accession Number(s): [id number] cc: Adelaida Carrion NP Patient Name: NASIM INGRAM MR#: [id number] : 1960 Exam Date: 09/18/2023 Ordering Doctor: [...] Treatments None Family Cancers None LOCATION: The [facility] BREAST COMPOSITION: There are scattered [...] Signed By: 09/18/23 1343 DD/ 1342 TD/TT: Paint Specialist: Procedure Note Radiology, Radiologist, - 09/18/2023 [place] [address] Mammography Report Signed Patient: NASIM INGRAM LMR#: [id number] : 1960cct:[id number] Age/Sex: 62 / FADM Date: 09/18/23 Loc: MAMMO Attending Dr: Adelaida Carrion NP Ordering Physician: Adelaida Carrion NPResults: Date of Service: 09/18/23Follow Up: Procedure(s): MM tomosynthesis screening BI Accession Number(s): [id number] cc: Adelaida Carrion NP Patient Name: NASIM INGRAM MR#: [id number] : 1960 Exam Date: 09/18/2023 Ordering Doctor: LIVIER Carrion CNP RADIOLOGY REPORT PROCEDURE: MM TOMOSYNTHESIS SCREENING BI COMPARISON: MM TOMOSYNTHESIS SCREENING BI, 09/15/2022. MG MAMM [id number] BHUMI CAD, 06/20/2021. INDICATIONS: Screening Calculator Name NCI Breast Cancer Risk Assessment Tool 5 Year Breast Cancer Risk 2.20% Lifetime Breast Cancer Risk 10.30% Personal Breast Cancer No Personal Ovarian Cancer No Treatments None Family Cancers None LOCATION: The [facility] BREAST COMPOSITION: There are scattered [...] M.D. Signed By:09/18/23 1343 DD/ 1342 TD/TT: Paint Specialist: us Adelaida Carrion NP [facility] Final Result documented in this encounter Visit Diagnoses Not on filedocumented in this encounter Additional Health Concerns Assessment Noted Time PHQ-9 Depression Total Score: 8 05/18/19 24 5:00 PM EST documented as of this encounter Care Teams Stress Analyst Relationship Specialty Start Date End Date Jos éLuis Roberts MD [address] [place] [address] PCP - General Family Medicine 05/18/23 01/26/24 Unallocated, Johan Sierra MD [address] [place] [address] PCP - General Family Medicine 01/27/24 02/01/24 José Luis Roberts MD [address] [place] [address] PCP - General Family Medicine 02/02/24 Adelaida Carrion NP Referring Physician Nurse Practitioner 10/14/22 Miriam Suarez DO [address] [place], [place] [address] Referring Physician Neurology 06/29/23 Mathew Parra LPN Licensed Practical Nurse Family Medicine 07/23/23 Diana De Leon LPN [address] [place] [address] Licensed Practical Nurse Family Medicine 12/18/2302/11 Adelaida Carrion NP [address] [place] [address] Nurse Practitioner Family Medicine 01/27/24 Bong Rosado MA [address] [place] [address] Family Medicine 02/12/24 Juany Leggett PA [address] [place], [place] [address] Physician Lace Inspector Neurology 07/26/24 documented as of this encounter
--- OUTSIDE RECORDS SUMMARY | 2024-10-08 02:18 | XMS_ITS | Encounter Summary ---
Author Organization [facility] Address [address] [place] [address] Care Team Providers Care Sales Executive Insurance Name Role Phone Daniela Miriam DO Unavailable [phone] Adelaida Carrion NP Unavailable [phone] José Luis Roberts MD Primary Care Provider [phone] Bong Rosado MA Unavailable [phone] Juany Leggett Unavailable Encounter Details Date Type Department Care Team (Late st Contact Info) Description 09/29/2024 Clinisync Result Encounter [facility] External Department Unsolicited [...] How often do you attend alevism or orthodoxy serv ices? Never 08/16/2023 Do [...] Recorded Patient Health Questionnaire-2 Score 2 09/21/2023 [facility] - Occupational Stress Questionnaire Answer Date [...] Visit [facility] [address] [place] [address] Adelaida Carrion NP [address] [place] [address] documented as of this encounter Procedures Procedure Name Priority Date/Time Associated Diagnosis Comments XR HIPS BILATERAL 2 VW WITH OR WITHOUT PELVIS 09/29/2024 11:23 AM EDT documented in this encounter Results * XR hips bilateral 2 views (09/29/2024 11:23 AM EDT) Anatomical Region Laterality Modality Lower Extremities, Hip Bilateral Radiograp hic Imaging 09/29/2024 11:2 3 AM EDT Narrative 09/29/2024 11:26 [place] [address] XRay Report Signed Patient: NASIM INGRAM MR#: [id number] : 1960 Acct:[id number] Age/Sex: 63 / F ADM Date: 09/29/24 Loc: SAHIL Attending Dr: Elizabeth Cano NP Ordering Physician: Elizabeth Cano NP Date of Service: 09/29/24 Procedure(s): XR hip BHUMI Accession Number(s): [id number] cc: Adelaida Carrion BOOKS SALESPERSON; Elizabeth Cano NP [place] [address] Patient Name: NASIM INGRAM MRN: [id number] date: 1960 Sex: F Assigned Patient Location: [facility] Current Patient Location: [facility] Accession/Order Number: [id number] Exam Date: 09/29/2024 11:20 Report Date: 09/29/2024 11:23 At the request of: ELIZABETH CANO NP Procedure: XR hip BHUMI BILATERAL HIPS - 2 views each COMPARISON: Left hip 05/19/2023 and right 06/08/2019 CLINICAL DATA: Chronic bilateral hip pain. No injury. AP and lateral views were obtained on both sides. There is osteopenia. No acute fractures or dislocation are noted. The hip joint spaces are symmetric. No significant hypertrophy is seen. There are enthesophytes at the iliac crests. The SI joints are intact and show minor sclerosis. The soft tissues are diffusely prominent related to body habitus. XR/XR hip BHUMI IMPRESSION: NO ACUTE BONY FINDINGS. Impression dictated by: Edith Bernal M.D. 09/29/2024 11:23 AM Dictation Location: [place] [address] Electronically authenticated by: [id number] Y Date: 09/29/2024 11:23 Dictated By: Edith Bernal M.D. Signed By: 09/29/24 1126 DD/ 1123 TD/TT: [employer] Customer Service: Procedure Note Radiology, Radiologist, MD - 09/29/2024 [place] [address] XRay Report Signed Patient: NASIM INGRAM LMR#: [id number] : 1960cct:[id number] Age/Sex: 63 / FADM Date: 09/29/24 Loc: SAHIL Attending Dr: Elizabeth Cano NP Ordering Physician: Elizabeth Cano NP Date of Service: 09/29/24 Procedure(s): XR hip BHUMI Accession Number(s): [id number] cc: Adelaida Carrion NP; Elizabeth Cano NP [place] [address] Patient Name: NASIM INGRAM MRN: [id number] date: 1960 Sex: F Assigned Patient Location: [facility] Current Patient Location: [facility] Accession/Order Number: [id number] Exam Date: 09/29/2024 11:20 Report Date: 09/29/2024 11:23 At the request of: ELIZABETH CANO NP Procedure: XR hip BHUMI BILATERAL HIPS - 2 views each COMPARISON: Left hip 05/19/2023 and right 06/08/2019 CLINICAL DATA: Chronic bilateral hip pain. No injury. AP and lateral views were obtained on both sides. There is osteopenia.No acute fractures or dislocation are noted. The hip joint spaces aresymmetric. No significant hypertrophy is seen. There are enthesophytes at the iliac crests. The SI joints are intact and show minor sclerosis. The softtissues are diffusely prominent related to body habitus. XR/XR hip BHUMI IMPRESSION: NO ACUTE BONY FINDINGS. Impression dictated by: Edith Bernal M.D. 09/29/2024 11:23 AM Dictation Location: [place] [address] Electronically authenticated by: [id number] Y Date: 1:23 Dictated By: Edith Bernal M.D. Signed By:09/29/24 1126 DD/ 1123 TD/TT: [employer] Customer Service: us Generic External Data Provider IMG XR PROCEDURES Final Result documented in this encounter Visit Diagnoses Not on filedocumented in this encounter Additional Health Concerns Assessment Noted Time PHQ-9 Depression Total Score: 8 05/18/19 24 5:00 PM EST documented as of this encounter Care Teams Sales Executive Insurance Relationship Specialty Start Date End Date José Luis Roberts MD [address] [place] [address] PCP - General Family Medicine 02/02/24 Miriam Suarez DO [address] [place] [address] Referring Physician Neurology 06/29/23 Adelaida Carrion NP [address] [place] [address] Nurse Practitioner Family Medicine 01/27/24 Bong Rosado MA [address] [place] [address] Family Medicine 02/12/24 Juany Leggett PA [address] [place] [address] Physician Syrup Machine Laborer Neurology 07/26/24 documented as of this encounter
--- OUTSIDE RECORDS SUMMARY | 2024-10-08 02:18 | XMS_ITS | Encounter Summary ---
Author Organization [facility] Address [address] [place] [address] Care Team Providers Care Lead Pressman Roto Gravure Printing Name Role Phone Miriam Suarez DO Unavailable [phone] Adelaida Carrion NP Unavailable [phone] José Luis Roberts MD Primary Care Provider [phone] Bong Rosado MA Unavailable [phone] Juany Leggett Unavailable Reason for Visit * Reason Onset Date Comments Med Refill 07/08/2024 Encounter Details Date Type Department Care Team (Late st Contact Info) Description 07/08/2024 Refill [facility] [address] [place] [address] José Luis Roberts MD [address] [place] [address] Social History Tobacco Use Types [...] Recorded Patient Health Questionnaire-2 Score 2 09/21/2023 [facility] Occupat ional Health - Occupational Stress [...] LU - 07/19/2024 9:59 AM EDT Text Dope Worker Hi, this is Nasim Ingram. My date of versus 9162 was calling about the dilkon that I requested to be called in yesterday. There is nothing at drug more yet. Thank you. * Telephone Encounter - VALERIE LU - 07/18/2024 10:57 AM EDT Text Dope Worker Adelaida Fraser, this is Nasim Ingram. Surendra [phone] need to have you call in a prescription for [place] to the pharmacy at [facility], Dr. Ricci, other yeast infection, thank you. * Telephone Encounter - Adelaida Carrion NP - 07/13/2024 9:04 PM EDT Ordered by pain mgmt documented in this encounter Plan of Treatment Upcoming Encounters Date Type Department Care Team (Late st Contact Info) Description 11/14/2024 9:40 AM EDT Office Visit [facility] [address] [place] [address] Adelaida Carrion NP [address] [place] [address] documented as of this encounter Visit Diagnoses Not on filedocumented in this encounter Additional Health Concerns Assessment Noted Time PHQ-9 Depression Total Score: 8 05/18/19 24 5:00 PM EST documented as of this encounter Care Teams Lead Pressman Roto Gravure Printing Relationship Specialty Start Date End Date José Luis Roberts MD [address] [place] [address] PCP - General Family Medicine 02/02/24 Miriam Suarez DO [address] [place] [address] Referring Physician Neurology 06/29/23 Adelaida Carrion NP [address] [place] [address] Nurse Practitioner Family Medicine 01/27/24 Bong Rosado MA [address] [place] [address] Family Medicine 02/12/24 Juany Leggett PA [address] [place] [address] Physician Sour Bleaching Pleater Neurology 07/26/24 documented as of this encounter
--- OUTSIDE RECORDS SUMMARY | 2024-10-08 02:19 | XMS_ITS | Encounter Summary ---
Author Organization [facility] Address [address] [place] [address] Care Team Providers Care Ward Supervisor Name Role Phone Adelaida Carrion NP Unavailable [phone] José Luis Roberts MD Primary Care Provider [phone] Miriam Suarez DO Unavailable [phone] Diana De Leon LPN Unavailable Unallocated, Noms Provider Primary Care Provi kellee Adelaida Carrion NP Unavailable [phone] José Luis Roberst MD Primary Care Provider [phone] Bong Rosado MA Unavailable [phone] Juany Leggett Unavailable Encounter Details Date Type Department Care Team (Late st Contact Info) Description 01/21/2024 Orders Only [facility] [address] [place] [address] Adelaida Carrion NP [address] [place] [address] Social History Tobacco Use Types [...] declined 08/16/2023 How often do you attend taoist or orthodoxy serv ices? Never 08/16/2023 Do you belong to any clubs o r organizations such as taoist groups, unions, fraternal or athletic groups, or [...] Recorded Patient Health Questionnaire-2 Score 2 09/21/2023 [facility] Occupat ional Health - [...] Visit [facility] [address] [place] [address] Adelaida Carrion, BRIANA [address] [place] [address] documented as of this encounter Procedures Procedure Name Priority Date/Time Associated Diagnosis Comments CT HEAD OR BRAIN W/ & W/O CONTRAST Routine 01/21/2024 9:10 AM EDT documented in this encounter Results * CT HEAD OR BRAIN W/ & W/O CONTRAST (01/21/2024 9:10 AM EDT) Anatomical Region Laterality Modality Radiographic Nleda ging us Adelaida Carrion SKEIN DYER IMG XR PROCEDURES Final Result documented in this encounter Visit Diagnoses Not on filedocumented in this encounter Additional Health Concerns Assessment Noted Time PHQ-9 Depression Total Score: 8 05/18/19 24 5:00 PM EST documented as of this encounter Care Teams Ward Supervisor Relationship Specialty Start Date End Date José Luis Roberts MD [address] [place] [address] PCP - General Family Medicine 05/18/23 01/26/24 Unallocated, Johan Sierra MD [address] [place] [address] PCP - General Family Medicine 01/27/24 02/01/24 José Luis Roberts MD [address] [place] [address] PCP - General Family Medicine 02/02/24 Adelaida Carrion NP Referring Physician Nurse Practitioner 10/14/22 Miriam Suarez DO [address] [place], [place] [address] Referring Physician Neurology 06/29/23 Diana De Leon LPN [address] [place] [address] Licensed Practical Nurse Family Medicine 12/18/2302/11 Adelaida Carrion NP [address] [place] [address] Nurse Practitioner Family Medicine 01/27/24 Bong Rosado, [place] [address] [place] [address] Family Medicine 02/12/24 Juany Leggett PA [address] [place], [place] [address] Physician Administrative Analyst Neurology 07/26/24 documented as of this encounter
--- OUTSIDE RECORDS SUMMARY | 2024-10-08 02:19 | XMS_ITS | Encounter Summary ---
Author Organization [facility] Address [address] [place] [address] Care Team Providers Care Policy Analyst Name Role Phone Adelaida Carrion NP Unavailable [phone] José Luis Roberts MD Primary Care Provider [phone] Miriam Suarez DO Unavailable [phone] Mathew Parra CAR AND YARD SUPERVISOR Unavailable Unavailable Diana De Leon CAR AND YARD SUPERVISOR Unavailable Unallocated, Noms Provider Primary Care Provi kellee Adelaida Carrion NP Unavailable [phone] José Luis Roberts MD Primary Care Provider [phone] Bong Rosado MA Unavailable [phone] Juany Leggett Unavailable Encounter Details Date Type Department Care Team (Late st Contact Info) Description 08/25/2023 Orders Only [facility] [address] [place] [address] Adelaida Carrion NP [address] [place] [address] Social History Tobacco Use Types [...] How often do you attend zoroastrian or latter-day serv ices? Never 08/16/2023 Do [...] Recorded Patient Health Questionnaire-2 Score 0 08/17/2023 [facility] [...] Visit [facility] [address] [place] [address] Adelaida Carrion, BRIANA [address] [place] [address] documented as of this encounter Procedures Procedure Name Priority Date/Time Associated Diagnosis Comments ELECTROCARDIOGRAM REPORT Routine 024 8:39 AM EDT documented in this encounter Results * Electrocardiogram Report (08/24/2023 8:39 AM EDT) us Adelaida Carrion BANKING PARALEGAL IN CLINIC/BEDSIDE ORDERABLES Fi nal Result documented in this encounter Visit Diagnoses Not on filedocumented in this encounter Additional Health Concerns Assessment Noted Time PHQ-9 Depression Total Score: 8 05/18/19 24 5:00 PM EST documented as of this encounter Care Teams Policy Analyst Relationship Specialty Start Date End Date José Luis Roberts MD [address] [place] [address] PCP - General Family Medicine 05/18/23 01/26/24 Unallocated, Johan Sierra MD [address] [place] [address] PCP - General Family Medicine 01/27/24 02/01/24 José Luis Roberts MD [address] [place] [address] PCP - General Family Medicine 02/02/24 Adelaida Carrion NP Referring Physician Nurse Practitioner 10/14/22 Miriam Suarez DO [address] [place], [place] [address] Referring Physician Neurology 06/29/23 Mathew Parra LPN Licensed Practical Nurse Family Medicine 07/23/23 Diana De Leon LPN [address] [place] [address] Licensed Practical Nurse Family Medicine 12/18/2302/11 Adelaida Carrion NP [address] [place] [address] Nurse Practitioner Family Medicine 01/27/24 Bong Rosado, [place] [address] [place] [address] Family Medicine 02/12/24 Juany Leggett PA [address] [place] [address] Physician Fermenter Helper Neurology 07/26/24 documented as of this encounter
--- OUTSIDE RECORDS SUMMARY | 2024-10-08 02:19 | XMS_ITS | Encounter Summary ---
Author Organization [facility] Address [address] [place] [address] Care Team Providers Care Aircraft Cabin Cleaner Name Role Phone Miriam Suarez DO Unavailable [phone] Adelaida Carrion NP Unavailable [phone] José Luis Roberts MD Primary Care Provider [phone] Bong Rosado MA Unavailable [phone] Juany Leggett Unavailable Encounter Details Date Type Department Care Team (Late st Contact Info) Description 08/08/2024 Abstract [facility] [address] [place] [address] José Luis Roberts MD [address] [place] [address] Social History Tobacco Use Types Packs/Day Years [...] declined 08/16/2023 How often do you attend yazidism or buddhist serv ices? Never 08/16/2023 Do you belong to any clubs o r organizations such as yazidism groups, unions, fraternal or athletic groups, or [...] Recorded Patient Health Questionnaire-2 Score 2 09/21/[address] [facility] [address] [facility] [...] [facility] [address] [place] [address] Adelaida Carrion NP [address] [place] [address] documented as of this encounter Visit Diagnoses Not on filedocumented in this encounter Additional Health Concerns Assessment Noted Time PHQ-9 Depression Total Score: 8 05/18/19 24 5:00 PM EST documented as of this encounter Care Teams Aircraft Cabin Cleaner Relationship Specialty Start Date End Date José Luis Roberts MD [address] [place] [address] PCP - General Family Medicine 02/02/24 Miriam Suarez DO [address] [place] [address] Referring Physician Neurology 06/29/23 Adelaida Carrion NP [address] [place] [address] Nurse Practitioner Family Medicine 01/27/24 Bong Rosado MA [address] [place] [address] Family Medicine 02/12/24 Juany Leggett PA [address] [place] [address] Physician Computing Systems Mechanic Neurology 07/26/24 documented as of this encounter
--- OUTSIDE RECORDS SUMMARY | 2024-10-08 02:19 | XMS_ITS | Encounter Summary ---
Author Organization [facility] Address [address] [place] [address] Care Team Providers Care Anhydrous Ammonia Production Supervisor Name Role Phone Adelaida Carrion NP Unavailable [phone] José Luis Roberts MD Primary Care Provider [phone] José Luis Roberts MD Primary Care Provider [phone] Miriam Suarez DO Unavailable [phone] [place], Ardana PAYROLL OFFICER Unavailable Unavailable Aida Ardana PAYROLL OFFICER Unavailable Unavailable Diana De Leon PAYROLL OFFICER Unavailable Unallocated, Noms Provider Primary Care Provi kellee Adelaida Carrion LEAD REFINERY SUPERVISOR Unavailable [phone] José Luis Roberts MD Primary Care Provider [phone] Bong Rosado MA Unavailable [phone] Juany Leggett Unavailable Encounter Details Date Type Department Care Team (Late st Contact Info) Description 04/08/2023 Orders Only [facility] [address] [place] [address] Adelaida Carrion LEAD REFINERY SUPERVISOR [address] [place] [address] Social History Tobacco Use Types Packs/Day Years [...] Office Visit [facility] [address] [place] [address] Adelaida Carrion NP [address] [place] [address] documented as of this encounter Procedures Procedure Name Priority Date/Time Associated Diagnosis Comments MISCELLANEOUS LAB TEST Routine 03/23/2023 2:45 PM EST documented in this encounter Results * - Miscellaneous Test (03/23/2023 2:45 PM EST) Adelaida Carrion LEAD REFINERY SUPERVISOR LAB BLOOD ORDERABLES Final Resu lt documented in this encounter Visit Diagnoses Not on filedocumented in this encounter Care Teams Anhydrous Ammonia Production Supervisor Relationship Specialty Start Date End Date José Luis Roberts MD PCP - General Family Medicine 10/14/22 05/17/23 José Luis Roberts MD [address] [place] [address] PCP - General Family Medicine 05/18/23 01/26/24 Unallocated, Johan Sierra MD [address] [place] [address] PCP - General Family Medicine 01/27/24 02/01/24 José Luis Roberts MD [address] [place] [address] PCP - General Family Medicine 02/02/24 Adelaida Carrion NP Referring Physician Nurse Practitioner 10/14/22 Miriam Suarez DO [address] [place], [place] [address] Referring Physician Neurology 06/29/23 Mathew Parra LPN Registered Nurse Family Medicine 07/07/23 07/08/23 Mathew Parra LPN Licensed Practical Nurse Family Medicine 07/23/23 Diana De Leon LPN [address] [place] [address] Licensed Practical Nurse Family Medicine 12/18/2302/11 Adelaida Carrion NP [address] [place] [address] Nurse Practitioner Family Medicine 01/27/24 Bong Rosado, [place] [address] [place] [address] Family Medicine 02/12/24 Juany Leggett PA [address] [place], [place] [address] Physician Therapeutic Recreation Leader Neurology 07/26/24 documented as of this encounter
--- OUTSIDE RECORDS SUMMARY | 2024-10-08 02:19 | XMS_ITS | Encounter Summary ---
Author Organization [facility] Address [address] [place] [address] Care Team Providers Care Mold Dumper Name Role Phone Adelaida Carrion NP Unavailable [phone] José Luis Roberts MD Primary Care Provider [phone] Miriam Suarez DO Unavailable [phone] Mathew Parra GRADES 1 THRU 6 HOME TEACHER Unavailable Unavailable Diana De Leon LPN Unavailable Unallocated, Noms Provider Primary Care Provi kellee Adelaida Carrion NP Unavailable [phone] José Luis Roberts MD Primary Care Provider [phone] Bong Rosado MA Unavailable [phone] Juany Leggett Unavailable Encounter Details Date Type Department Care Team (Late st Contact Info) Description 08/19/2023 Clinisync Result Encounter [facility] External Department Unsolicited Adelaida Carrion NP [address] [place] [address] Social History Tobacco Use Types Packs/Day Years [...] How often do you attend samaritan or synagogue serv ices? Never 08/16/2023 Do you belong [...] Visit [facility] [address] [place] [address] Adelaida Carrion NP [address] [place] [address] documented as of this encounter Procedures Procedure Name Priority Date/Time Associated Diagnosis Comments CT LUNG SCREENING LOW DOSE 08/19/2023 6:06 AM EDT documented in this encounter Results * CT LUNG SCREENING LOW DOSE (08/19/2023 6:06 AM EDT) Anatomical Region Laterality Modality Other 08/19/2023 6:06 AM EDT Narrative 08/19/2023 6:09 [place] [address] CT Scan Report Signed Patient: NASIM INGRAM MR#: [id number] : 1960 Acct:[id number] Age/Sex: 62 / F ADM Date: 08/18/23 Loc: CT Attending Dr: Adelaida Carrion MOLDING AND TRIM INSTALLER Ordering Physician: Adelaida Carrion NP Date of Service: 08/18/23 Procedure(s): CT lung screening low-dose Accession Number(s): [id number] cc: Adelaida Carrion NP [address] [address] Patient Name: NASIM INGRAM MRN: [id number] date: 1960 Sex: F Assigned Patient Location: CT Current Patient Location: Accession/Order Number: [id number] Exam Date: 08/18/2023 13:28 Report Date: 08/19/2023 [...] M.D. Signed By: 08/19/23608 DD/ 5 TD/TT: Retail Bakery Manager: Procedure Note Radiology, Radiologist, MD - 08/19/[address] [place] [id number] Scan Report Signed Patient: NASIM INGRAM LMR#: [id number] : 1960cct:[id number] Age/Sex: 62 / FADM Date: 08/18/23 Loc: CT Attending Dr: Adelaida Carrion NP Ordering Physician: Adelaida Carrion NP Date of Service: 08/18/23 Procedure(s): CT lung screening low-dose Accession Number(s): [id number] cc: Adelaida Carrion NP The [address] [address] Patient Name: NASIM INGRAM MRN: [id number] date: 1960 Sex: F Assigned Patient Location: CT Current Patient Location: Accession/Order Number: [id number] Exam Date: 08/18/2023 13:28 Report Date: 08/19/2023 [...] Dhillon M.D. Signed By:08/19/23608 DD/ 5 TD/TT: Retail Bakery Manager: Adelaida Carrion MOLDING AND TRIM INSTALLER [facility] Final Result documented in this encounter Visit Diagnoses Not on filedocumented in this encounter Additional Health Concerns Assessment Noted Time PHQ-9 Depression Total Score: 8 05/18/19 24 5:00 PM EST documented as of this encounter Care Teams Mold Dumper Relationship Specialty Start Date End Date José Luis Roberts MD [address] [place] [address] PCP - General Family Medicine 05/18/23 01/26/24 Unallocated, Noms MD Mariela [address] [place] [address] PCP - General Family Medicine 01/27/24 02/01/24 José Luis Roberts MD [address] [place] [address] PCP - General Family Medicine 02/02/24 Adelaida Carrion NP Referring Physician Nurse Practitioner 10/14/22 Miriam Suarez DO [address] [place], [place] [address] Referring Physician Neurology 06/29/23 Mathew Parra LPN Licensed Practical Nurse Family Medicine 07/23/23 Diana De Leon LPN [address] [place] [address] Licensed Practical Nurse Family Medicine 12/18/2302/11 Adelaida Carrion NP [address] [place] [address] Nurse Practitioner Family Medicine 01/27/24 Bong Rosado, [place] [address] [place] [address] Family Medicine 02/12/24 Juany Leggett PA [address] [place], [place] [address] Physician Forestry Faculty Member Neurology 07/26/24 documented as of this encounter
--- OUTSIDE RECORDS SUMMARY | 2024-10-08 02:19 | XMS_ITS | Encounter Summary ---
Author Organization [facility] Address [address] [place] [address] Care Team Providers Care Ladle Builder Name Role Phone Adelaida Carrion NP Unavailable [phone] José Luis Roberts MD Primary Care Provider [phone] José Luis Roberts MD Primary Care Provider [phone] Miriam Suarez DO Unavailable [phone] [place], Ardana ENVIRONMENTAL CONTROL ADMINISTRATOR Unavailable Unavailable Fran Parradana ENVIRONMENTAL CONTROL ADMINISTRATOR Unavailable Unavailable Diana De Leon ENVIRONMENTAL CONTROL ADMINISTRATOR Unavailable Unallocated, Noms Provider Primary Care Provi kellee Adelaida Carrion THREAD SPOOLER Unavailable [phone] José Luis Roberts MD Primary Care Provider [phone] Bong Rosado MA Unavailable [phone] Juany Leggett Unavailable Encounter Details Date Type Department Care Team (Late st Contact Info) Description 11/14/2022 Abstract [facility] [address] [facility] [address] [place] [address] Travon Hines PA [address] [facility] [address] [place] [address] Social History Tobacco Use Types Packs/Day Years [...] Office Visit [facility] [address] [place] [address] Adelaida Carrion NP [address] [place] [address] documented as of this encounter Visit Diagnoses Not on filedocumented in this encounter Care Teams Ladle Builder Relationship Specialty Start Date End Date José Luis Roberts MD PCP - General Family Medicine 10/14/22 05/17/23 José Luis Roberts MD [address] [place] [address] PCP - General Family Medicine 05/18/23 01/26/24 Unallocated, Johan Sierra MD [address] [place] [address] PCP - General Family Medicine 01/27/24 02/01/24 José Luis Roberts MD [address] [place] [address] PCP - General Family Medicine 02/02/24 Adelaida Carrion NP Referring Physician Nurse Practitioner 10/14/22 Miriam Suarez DO [address] [place], [place] [address] Referring Physician Neurology 06/29/23 Mathew Parra LPN Registered Nurse Family Medicine 07/07/23 07/08/23 Mathew Parra LPN Licensed Practical Nurse Family Medicine 07/23/23 Diana De Leon LPN [address] [place] [address] Licensed Practical Nurse Family Medicine 12/18/2302/11 Adelaida Carrion NP [address] [place] [address] Nurse Practitioner Family Medicine 01/27/24 Bong Rosado, [place] [address] [place] [address] Family Medicine 02/12/24 Juany Leggett PA [address] [place] [address] Physician Hair Mixer Neurology 07/26/24 documented as of this encounter
--- OUTSIDE RECORDS SUMMARY | 2024-10-08 02:19 | XMS_ITS | Encounter Summary ---
Author Organization [facility] Address [address] [place] [address] Care Team Providers Care Silverware Assembler Name Role Phone Adelaida Carrion NP Unavailable [phone] José Luis Roberts MD Primary Care Provider [phone] Miriam Suarez DO Unavailable [phone] Mathew Parra AIR POLLUTION ENGINEER Unavailable Unavailable Diana De Leon AIR POLLUTION ENGINEER Unavailable Unallocated, Noms Provider Primary Care Provi kellee Adelaida Carrion NP Unavailable [phone] José Luis Roberts MD Primary Care Provider [phone] Bong Rosado MA Unavailable [phone] Juany Leggett Unavailable Encounter Details Date Type Department Care Team (Late st Contact Info) Description 08/26/2023 Orders Only [facility] [address] [place] [address] Arsalan Hagen MD [address] [address] Social History Tobacco Use Types Packs/Day Years [...] declined 08/16/2023 How often do you attend protestant or religion serv ices? Never 08/16/2023 Do you belong to any clubs o r organizations such as protestant groups, unions, fraternal or athletic groups, or [...] Recorded Patient Health Questionnaire-2 Score 0 08/17/2023 [facility] Occupat ional Health - Occupational Stress [...] Office Visit [facility] [address] [place] [address] Adelaida Carrion, BRIANA [address] [place] [address] documented as of this encounter Procedures Procedure [...] documented as of this encounter Care Teams Silverware Assembler Relationship Specialty Start Date End Date José Luis Roberts MD [address] [place] [address] PCP - General Family Medicine 05/18/23 01/26/24 Unallocated, Johan Sierra MD [address] [place] [address] PCP - General Family Medicine 01/27/24 02/01/24 José Luis Roberts MD [address] [place] [address] PCP - General Family Medicine 02/02/24 Adelaida Carrion, BRIANA Referring Physician Nurse Practitioner 10/14/22 Miriam Suarez DO [address] [place], [place] [address] Referring Physician Neurology 06/29/23 Mathew Parra LPN Licensed Practical Nurse Family Medicine 07/23/23 Diana De Leon LPN [address] [place] [address] Licensed Practical Nurse Family Medicine 12/18/2302/11 Adelaida Carrion NP [address] [facility] [place] [address] Nurse Practitioner Family Medicine 01/27/24 Bong Rosado, [place] [address] [place] [address] Family Medicine 02/12/24 Juany Leggett PA [address] [place] [address] Physician Rubber Goods Tester Water Neurology 07/26/24 documented as of this encounter
--- OUTSIDE RECORDS SUMMARY | 2024-10-08 02:19 | XMS_ITS ---
Author Organization [facility] Address [address] [place] [address] Care Team Providers Care Manager Process Improvement Name Role Phone Miriam Suarez DO Unavailable [phone] Adelaida Carrion NP Unavailable [phone] José Luis Roberts MD Primary Care Provider [phone] Bong Rosado MA Unavailable [phone] Juany Leggett Unavailable Chronic Care Management [...] Name Relationship Phone Bong Rosado MA(Responsible Staff) [phone] Continued Care and Services Coordination
--- OUTSIDE RECORDS SUMMARY | 2024-10-08 02:19 | XMS_ITS | CCD ---
Author Organization [facility] Care Team Providers Care Auto Damage Trainee Name Role Phone ROSIERAHEIM, SUKI Admitting Unavailable EBRAHEIM, SUKI Attending Unavailable AICHHOLZ, ADELAIDA Referring Unavailable AICHHOLZ, ADELAIDA Primary Care Unavailable NH Procedure Practitioner Unavailab SUKI Jacob Surgeon Unavailable NH Procedure Practitioner Unavailab CHAPARRITA Goncalves Surgeon Unavailable BRIDGETTE MACEDO Admitting Unavailable BRIDGETTE MACEDO Attending Unavailable AICHHOLZ, OXYACETYLENE BURNER ADELAIDA Primary Care Unavailable NIXON ., DR FINA Iverson Admitting Unavailable NIXON ., DR FINA Iverson Attending Unavailable AICHHOLZ, OXYACETYLENE BURNER ADELAIDA Primary Care Unavailable MCDANIEL ., ZELDA Consulting Unavailable LAKSHMIPATHY ., NARENDRANATH Consulting Paula vailable LAKSHMIPATHY ., NARENDRANATH Admitting Paula vailable LAKSHMIPATHY ., NARENDRANATH Attending Paula vailable AICHHOLZ, OXYACETYLENE BURNER ADELAIDA Primary Care Unavailable LAKSHMIPATHY ., NARENDRANATH Consulting Paula vailable AICHHOLZ, OXYACETYLENE BURNER ADELAIDA Primary Care Unavailable MARKER ., DR CHAUDHRY Admitting Unavailable MARKER ., DR CHAUDHRY Attending Unavailable MARKER ., DR CHAUDHRY Consulting Unavailable AICHHOLZ, OXYACETYLENE BURNER ADELAIDA Admitting Unavailable AICHHOLZ, OXYACETYLENE BURNER ADELAIDA Attending Unavailable AICHHOLZ, OXYACETYLENE BURNER ADELAIDA Primary Care Unavailable NIXON ., DR FINA Iverson Admitting Unavailable NIXON ., DR FINA Iverson Attending Unavailable AICHHOLZ, OXYACETYLENE BURNER ADELAIDA Primary Care Unavailable MCDANIEL ., ZELDA Consulting Unavailable NIXON ., DR FINA Iverson Admitting Unavailable NIXON ., DR FINA Iverson Attending Unavailable AICHHOLZ, OXYACETYLENE BURNER ADELAIDA Primary Care Unavailable MCDANIEL ., ZELDA Consulting Unavailable AICHHOLZ, OXYACETYLENE BURNER ADELAIDA Admitting Unavailable AICHHOLZ, OXYACETYLENE BURNER ADELAIDA Attending Unavailable AICHHOLZ, OXYACETYLENE BURNER ADELAIDA Primary Care Unavailable AICHHOLZ, OXYACETYLENE BURNER ADELAIDA Consulting Unavailable AICHHOLZ, OXYACETYLENE BURNER ADELAIDA Admitting Unavailable AICHHOLZ, OXYACETYLENE BURNER ADELAIDA Attending Unavailable AICHOLZ, OXYACETYLENE BURNER ADELAIDA Primary Care Unavailable AICHHOLZ, OXYACETYLENE BURNER ADELAIDA Consulting Unavailable MISC, DR COTE Admitting Unavailable MISC, DR COTE Attending Unavailable AICHOLZ, OXYACETYLENE BURNER ADELAIDA Primary Care Unavailable AICHHOLZ, OXYACETYLENE BURNER ADELAIDA Consulting Unavailable PRITESHC, DR COTE Consulting Unavailable STARR, DR KINGSLEY Atkins Consulting Unavailable NIXON ., DR FINA Iverson Admitting Unavailable NIXON ., DR FINA Iverson Attending Unavailable AICHOLZ, [facility] ADELAIDA Primary Care Unavailable MCDANIEL ., ZELDA Consulting Unavailable NIXON ., DR FINA Iverson Admitting Unavailable NIXON ., DR FINA Iverson Attending [facility]available [facility] Primary Care Unavailable NIXON ., DR FINA Iverson Consulting Unavailable OMID LAY Consulting Unavailable NIXON ., DR FINA Iverson Admitting Unavailable NIXON ., DR FINA Iverson Attending Unavailable [facility], [facility] ADELAIDA Primary Care Unavailable MCDANIEL ., ZELDA Consulting Unavailable AICHOLZ, [facility] ADELAIDA Primary Care Unavailable HALKER ., ARIAN Admitting Unavailable HALKER ., ARIAN Attending Unavailable LAKSHMIPATHY ., NARENDRANATH Consulting Paula vailable HALKER ., ARIAN Consulting Unavailable LAKSHMIPATHY ., NARENDRANATH Admitting Paula vailable LAKSHMIPATHY ., NARENDRANATH Attending Paula vailable [facility], [facility] ADELAIDA Primary Care Unavailable LAKSHMIPATHY ., NARENDRANATH Consulting Paula vailable AICHOLZ, OXYACETYLENE BURNER ADELAIDA Admitting Unavailable AICHHOLZ, OXYACETYLENE BURNER ADELAIDA Attending Unavailable AICHOLZ, OXYACETYLENE BURNER ADELAIDA Primary Care Unavailable AICHHOLZ, OXYACETYLENE BURNER ADELAIDA Consulting Unavailable BRIDGETTE MACEDO Admitting Unavailable BRIDGETTE MACEDO Attending Unavailable AICHHOLZ, OXYACETYLENE BURNER ADELAIDA Primary Care Unavailable DR KINGSLEY CLEMENTS Consulting Unavailable BRIDGETTE MACEDO Consulting Unavailable GILMER NEVES Admitting Unavailable GILMER NEVES Attending Unavailable PURA, GILMER Consulting Unavailable AICHOLZ, OXYACETYLENE BURNER ADELAIDA Primary Care Unavailable AICHHOLZ, OXYACETYLENE BURNER ADELAIDA Primary Care Unavailable DR WILLI RINALDI Admitting Unavailable DEEJAY, DR WILLI Atkins Attending Unavailable DR WILLI RINALDI Consulting Unavailable AICHHOLZ, OXYACETYLENE BURNER ADELAIDA Primary Care Unavailable ALMAZ ., DANNY Admitting Unavailable ALMAZ ., DANNY Attending Unavailable DR KINGSLEY CLEMENTS Consulting Unavailable ALMAZ ., DANNY Consulting Unavailable LAKSHMIPATHY ., NARENDRANATH Admitting Paula vailable LAKSHMIPATHY ., NARENDRANATH Attending Paula vailable AICHHOLZ, OXYACETYLENE BURNER ADELAIDA Primary Care Unavailable AICHHOLZ, OXYACETYLENE BURNER ADELAIDA Admitting Unavailable AICHHOLZ, OXYACETYLENE BURNER ADELAIDA Attending Unavailable AICHHOLZ, OXYACETYLENE BURNER ADELAIDA Primary Care Unavailable AICHHOLZ, OXYACETYLENE BURNER ADELAIDA Admitting Unavailable AICHHOLZ, OXYACETYLENE BURNER ADELAIDA Attending Unavailable AICHHOLZ, OXYACETYLENE BURNER ADELAIDA Primary Care Unavailable AICHHOLZ, OXYACETYLENE BURNER ADELAIDA Consulting Unavailable DR KINGSLEY CLEMENTS Consulting Unavailable HALKER ., ARIAN Admitting Unavailable HALKER ., ARIAN Attending Unavailable AICHHOLZ, OXYACETYLENE BURNER ADELAIDA Primary Care Unavailable Aichholz, Adelaida J Primary Care Provider [phone] MD Gaudencio Monk Admit Provider MD Gaudencio Monk Attending Provider [phone] JOHANN Vieira Other Provider Unavailable JOHANN Pina [...] Provider MD Jace Graham Attending Provider Sheyla COMMUNICATIONS EQUIPMENT INSTALLER, Adelaida Unavailable José Luis Roberts MD Primary Care Provider Aichholz COMMUNICATIONS EQUIPMENT INSTALLER, Adelaida Unavailable Miriam Suarez DO Unavailable Moises CAMPBELL, Diana Unavailable Unavailable Unallocatuche JAIMES, Johan Provider Primary Care Provi kellee Aichrhonda COMMUNICATIONS EQUIPMENT INSTALLER, Adelaida Unavailable José Luis Roberts MD Primary Care Provider [phone] Bong Rosado MA Unavailable Unavailable Aida CAMPBELL, Mathew Unavailable Unavailable Juany Yi Unavailable AICHHOLZ, ADELAIDA Attending Unavailable LOWE, JUANY Attending Unavailable AICHHOLZ, ADELAIDA Attending Unavailable LOWE, JUANY Attending Unavailable AICHHOLZ, ADELAIDA Attending Unavailable AICHHOLZ, ADELAIDA Attending Unavailable AICHHOLZ, ADELAIDA Attending Unavailable WINDSONAM RAMSAY Attending Unavailable AICHHOLZ, ADELAIDA Attending Unavailable WINDNASONAM VILLASENOR C Attending Unavailable GILLMORJUANY Attending Unavailable AICHHOLZ, ADELAIDA Attending Unavailable AICHHOLZ, ADELAIDA Attending Unavailable AICHHOLZ, ADELAIDA Attending Unavailable LOWE JUANY Attending Unavailable RACHEL MITCHELL Attending Unavailable DAVID FOSTER Attending Unavailable ADOLPH JUANY Referring Unavailable AICHHOLZ, ADELAIDA Attending Unavailable KAITLYN RACHEL Referring Unavailable Bong Rosado MA Unavailable Giwellingtonitis , Andrius Noytautargelia Attending Unavailable Giedraitis , Andrius Vytautas Attending Unavailable Giedraitis , Andrius Vytautas Attending Unavailable Giedraitis , Andrius Vytautas Attending Unavailable Giedraitis , Andrius Vytautas Attending Unavailable Giedraitis , Andrius Vytautas Attending Unavailable Eduardo Monk Admitting Unavailab le Eduardo Monk Attending Unavailab le Yinghrhonda Adelaida J Primary Care Unavailable Aichholz, Adelaida J Primary Care Unavailable Rob Lake Attending Unavailable Malinda Rosales Consulting Unavailable Delta Gan Admitting Unavailable Denny Fosterolas Consulting Unavailable Miriam Suarez Consulting Unavailable Kingsley Livingston Consulting Unavailable Kar Burt Consulting Unavailab Dennis Hicks Consulting Unavailable Juany Caballero Consulting Unavailable Inna Melendez Consulting Unavailable Rocio Duncan Consulting Unavailable Chuck Hinkle Consulting Unavailable Allergies Allergy Classification Reported Allergen(s) Allergy Type Date of Onset Reaction(s) Facility (7 sources) Adhesive Tape; Translations: [ADHESIVE TAPE] Propensity to adverse reactions (disorder) 04-06-19 14 rash [facility] Repository (3 sources) levETIRAcetam; Translations: [KEPPRA] Drug Allergy 07-02-19 19 [facility] Repository (3 sources) milnacipran; Translations: [SAVELLA] Drug Allergy 03-14-20 13 [facility] Repository (1 source) Penicillin; Translations: [PENICILLIN] Drug Allergy 01-16-20 18 [facility] Repository (5 sources) Prochlorperazin e; Translations: [COMPAZINE] Drug Allergy 03-14-20 13 agitation [facility] Repository (20 sources) Tetracycline; Translations: [TETRACYCLINE] Drug Allergy 04-06-19 13 Hives, Unknown [facility] Repository (4 sources) Penicillins Drug allergy (disorder) 04-06-19 13 Unknown Reaction [facility] Repository (20 sources) levETIRAcetam; Translations: [levetiracetam] Drug Allergy 12-13-19 22 Hallucinations , Other [facility] (20 sources) milnacipran; Translations: [milnacipran] Drug Allergy 12-13-19 22 hives, Hallucinations , Other, Unknown [facility] (20 sources) Prochlorperazin e; Translations: [prochlorperazi ne] Drug Allergy 12-13-19 22 Unknown, [facility] (2 sources) Penicillin G Drug Allergy as a child [facility] Other (2 sources) Tetracaine Drug Allergy Unknown [facility] Other (20 sources) Penicillins Drug Intolerance 12-13-19 22 Anaphylaxis [facility] (20 sources) Other Propensity to adverse reactions 12-13-19 22 Other [facility] (20 sources) Wound Dressing Adhesive Drug Allergy 09-20-19 23 Rash, Unknown [facility] (20 sources) Eszopiclone Drug Allergy 09-21-19 24 Hallucinations , Anaphylaxis [facility] (1 source) Penicillin Drug Allergy 03-02-20 [facility] Repository (1 source) Penicillins Drug allergy (disorder) 03-02-20 [facility] Repository (1 source) Tetracaine Drug Allergy 03-02-20 [facility] Repository Medications Current Medications Medication Drug Class(es) Dates Sig (Normalized) Sig (Original) amLODIPine 10 mg oral tablet (20 sources) Dihydropyridine Calcium Channel Jim Start: 10-05-2023 End: 08-26-2024 take 1 tablet by mouth once daily amLODIPine (Norvasc) 10 MG tablet Indications: Essential (primary) hypertension Take 1 tablet (10 mg) by mouth Daily 30 tablet 5 07/27/2024 Active Start: 11-17-2022 take 10 mg by [...] 12.5 MG tablet Indications: Essential (primary) hypertension Take 1 tablet (12.5 mg) by mouth in the morning and 1 tablet (12.5 mg) in the evening. Take with meals. 60 tablet 5 07/27/2024 Active Start: 04-29-2023 End: 05-29-2023 take 1 [...] sodium 50 mg delayed release oral tablet (10 sources) Nonsteroidal Anti-inflammatory Drug Start: 07-24-2024 diclofenac [...] Active fexofenadine hydrochloride 180 mg oral tablet (6 sources) Histamine-1 Receptor Antagonist Start: 08-16-2024 End: 09-15-2024 take 1 tablet by mouth once daily fexofenadine (Naida) 180 MG tablet Indications: Allergic rhinitis, unspecified seasonality, unspecified trigger Take 1 tablet (180 mg) by mouth Daily 30 tablet 5 08/16/2024 Active fluconazole 100 mg oral tablet (20 [...] each nostril Daily 16 g 5 07/27/2024 Active Start: 10-05-2023 End: 02-03-2024 take 2 [...] 1 07/12/2024 01/08/2025 Active Start: 05-28-2018 End: 08-14-2023 take 1200 mg by mouth at bedtime [...] 100 MG tablet Indications: Essential (primary) hypertension Take 1 tablet (100 mg) by mouth Daily 30 tablet 5 07/27/2024 Active Start: 11-17-2022 take 100 mg by [...] (BARIATRIC MULTIVITAMINS/IRON PO) Bariatric Multivitamins/Iron 0 Active Jlnopwvxkbcn-Pph-Qgnq-Fa-Vit K (Bariatric Multivitamins) 45 mg iron- 800 mcg-120 mcg Capsule (2 sources) Start: 11-17-2022 take 1 capsule by mouth once daily Acpbdquwfdpi-Jvh-Ozbd-Fa-Vit K (Bariatric Multivitamins) 45 mg iron- 800 mcg-120 mcg Capsule Active 1 CAP PO Daily November 16, 2022 11:00pm Start: 11-17-2022 take 1 capsule by mo uth once daily Grtvnacadmnl-Lyh-Dixj-Fa-Vit K (Bariatri c Multivitamins) 45 mg iron- 800 mcg-120 mcg Capsule Active 1 CAP PO Daily November 17, 2022 12:00am nystatin [id number] unt/ml topical cream (20 sources) Polyene Antifungal Start: 03-07-2024 nystatin (M ycostatin) cream 03/07/2024 Active nystatin (Mycost atin) 909700 UNIT/GM powder Apply 1 application topically in [...] Take before meals. 30 capsule 5 07/27/2024 Active Start: 11-17-2022 take 20 mg by [...] by mouth Daily 30 tablet 5 07/27/2024 Active Start: 11-02-2023 End: 03-16-2024 take 2 [...] Lisinopril Discontinued 20 MG PO Daily 30 30 February 26th, 2019 12:00am November 17, 2022 12:49am loratadine 10 [...] Resolved : 03-16-2005-18-2023 Chronic Chronic kidney disease (20 sources) Chronic kidney disease stage 3A ; Translations: [Chronic kidney disease, stage 3a (HCC)] Onset: 05-12-1905-12-2024 Chronic Chronic obstructive pulmonary disease and bronchiectasis (13 sources) Bronchitis; Translations: [Bronchitis, not specified as acute or chronic] Onset: 07-28-1907-27-2024 Episodic Conduction disorders (20 sources) EKG: right bundle branch block; Translations: [Unspecified right bundle-branch block] Onset: 03-16-2003-16-2024 Chronic Diabetes mellitus without complication (2 sources) [...] 05-18-2023 Episodic Other aftercare (1 source) Other mcfp (current) drug therapy; Translations: [OTH CORRECTION CURRENT [...] OTH NONSPECIFIC SKIN ERUPTION] Onset: 09-12-2021 Episodic Other upper respiratory infections (15 sources) Acute upper respiratory infection; Translations: [Acute upper respiratory infection, unspecified] Onset: 06-14-2024 06-14-2024 Episodic Residual codes; unclassified (1 source) Acquired [...] Test Name Value Interpretation Reference Range Facility XR Pelvis AP and Hip - bilat eral GE 2 Viewson 09-29-2024 [place] [address] XRay Report Signed Patient: MICHELLE BE MR#: [id number] : 1960 Acct:[id number] Age/Sex: 63 / F ADM Date: 09/29/24 Loc: [facility] Attending Dr: Elizabeth Culp NP Ordering Physician: Elizabeth Culp NP Date of Service: 09/29/24 Procedure(s): XR hip BHUMI Accession Number(s): [id number] cc: Adelaida Carrion NP; Elizabeth Culp NP [address] [address] Patient Name: MICHELLE BE MRN: [id number] date: 1960 Sex: F Assigned Patient Location: [facility] Current Patient Location: [facility] Accession/Order Number: [id number] Exam Date: 09/29/2024 11:20 Report Date: 09/29/2024 11:23 At the request of: ELIZABETH CULP NP Procedure: XR hip BHUMI BILATERAL HIPS [...] Bernal M.D. 09/29/2024 11:23 AM Dictation Location: [place] [address] Electronically authenticated by: [id number] Y Date: 09/29/2024 11:23 Dictated By: Edith Bernal M.D. Signed By: 09/29/24 1126 DD/ 1123 TD/TT: Trailer Sections Assembler: [facility] Radiology, Radiologist, MD - 09/29/2024 [place] [address] XRay Report Signed Patient: MICHELLE BE MR#: [id number] : 1960 Acct:[id number] Age/Sex: 63 / F ADM Date: 09/29/24 Loc: [facility] Attending Dr: Elizabeth Culp NP Ordering Physician: Elizabeth Culp NP Date of Service: 09/29/24 Procedure(s): XR hip BHUMI Accession Number(s): [id number] cc: Adelaida Carrion NP; Elizabeth Culp NP The [place] [id number] Patient Name: MICHELLE BE MRN: [facility]:[id number] date: 1960 Sex: F Assigned Patient Location: [facility] Current Patient Location: [facility] Accession/Order Number: [id number] Exam Date: 09/29/2024 11:20 Report Date: 09/29/2024 11:23 At the request of: ELIZABETH CULP NP Procedure: XR hip BHUMI BILATERAL HIPS [...] Bernal M.D. 09/29/2024 11:23 AM Dictation Location: [place] [address] Electronically authenticated by: [id number] Y Date: 09/29/2024 11:23 Dictated By: Edith Bernal M.D. Signed By: 09/29/24 1126 DD/ 1123 TD/TT: Trailer Sections Assembler: [facility] Radiology Study observation (narrative) [facility] XR Pelvis AP and Hip - bilat eral GE 2 ViewsOrdered By: Radiologist Radiology on 09-29-2024 [facility] Work Phone: CT LUNG SCREENING LOW DOSEon 09-26-2024 [place] [address] CT Scan Report Signed Patient: MICHELLE BE MR#: [id number] : 1960 Acct:[id number] Age/Sex: 63 / F ADM Date: 09/26/24 Loc: [facility] Attending Dr: Adelaida Carrion NP Ordering Physician: Adelaida Carrion NP Date of Service: 09/26/24 Procedure(s): CT lung screening low-dose Accession Number(s): [id number] cc: Adelaida Carrion NP [place] [address] Patient Name: MICHELLE BE MRN: [id number] date: 1960 Sex: F [facility]igned [facility] Current Patient Location: [facility] Accession/Order Number: [id number] Exam Date: 09/26/2024 16:58 Report Date: 09/26/2024 [...] 12 months is recommended. Impression dictated by: Willi Guadalupe M.D. 09/26/2024 5:02 PM Dictation Location: [place] [address] Electronically authenticated by: [id number] Y Date: 09/26/2024 17:02 Dictated By: Willi Guadalupe M.D. Signed By: 09/26/241703 DD/ 01 TD/TT: Trailer Sections Assembler: [facility] Radiology, Radiologist, MD - 09/26/2024 [place] [address] CT Scan Report Signed Patient: MICHELLE BE MR#: [id number] : 1960 Acct:[id number] Age/Sex: 63 / F ADM Date: 09/26/24 Loc: [facility] Attending Dr: Adelaida Carrion NP Ordering Physician: Adelaida Carrion NP Date of Service: 09/26/24 Procedure(s): CT lung screening low-dose Accession Number(s): [id number] cc: Adelaida Carrion NP The [address] [address] Patient Name: MICHELLE BE MRN: [id number] date: 1960 Sex: F Assigned [facility] Current Patient Location: [facility] Accession/Order Number: [id number] Exam Date: 09/26/2024 16:58 Report Date: 09/26/2024 [...] 12 months is recommended. Impression dictated by: Willi Guadalupe M.D. 09/26/2024 5:02 PM Dictation Location: [place] [address] Electronically authenticated by: [id number] Y Date: 09/26/2024 17:02 Dictated By: Willi Guadalupe M.D. Signed By: 09/26/24 1704 DD/ 01 TD/TT: Trailer Sections Assembler: [facility] Radiology Study observation (narrative) [facility] CT LUNG SCREENING LOW DOSEOr dered By: Radiologist Radiology on 09-26-2024 [facility] Work Phone: MM TOMOSYNTHESIS SCREENING B Ion 09-26-2024 [place] [address] Mammography Report Signed Patient: MICHELLE BE MR#: [id number] : 1960 Acct:[id number] Age/Sex: 63 / F ADM Date: 09/26/24 Loc: [facility] Attending Dr: Adelaida Carrion NP Ordering Physician: Adelaida Carrion NP Results: Date of Service: 09/26/24 Follow Up: Procedure(s): MM tomosynthesis screening BI Accession Number(s): [id number] cc: Adelaida Carrion NP Patient Name: MICHELLE BE MR#: [id number] : 1960 Exam Date: 09/26/2024 Ordering Doctor: [...] Treatments None Family Cancers None LOCATION: [facility] BREAST COMPOSITION: There are scattered [...] on 09/26/2024 at 16:41 Approved by: Olu rGover DO on 09/26/2024 at 16:42 Dictated By: Olu Grover M.D. Signed By: 09/26/241642 DD/ 41 TD/TT: Trailer Sections Assembler: [facility] Radiology, Radiologist, MD - 09/26/2024 [place] [address] Mammography Report Signed Patient: MICHELLE BE MR#: [id number] : 1960 Acct:[id number] Age/Sex: 63 / F ADM Date: 09/26/24 Loc: [facility] Attending Dr: Adelaida Carrion NP Ordering Physician: Adelaida Carrion NP Results: Date of Service: 09/26/24 Follow Up: Procedure(s): MM tomosynthesis screening BI Accession Number(s): [id number] cc: Adelaida Carrion NP Patient Name: MICHELLE BE MR#: [id number] : 1960 Exam Date: 09/26/2024 Ordering Doctor: LIVIER CARRION OXYACETYLENE BURNER RADIOLOGY REPORT PROCEDURE: MM TOMOSYNTHESIS SCREENING BI [...] Treatments None Family Cancers None LOCATION: [facility] BREAST COMPOSITION: There are scattered [...] M.D. Signed By: 09/26/241642 DD/ 41 TD/TT: Trailer Sections Assembler: [facility] Radiology Study observation (narrative) [facility] MM TOMOSYNTHESIS SCREENING B IOrdered By: Radiologist Radiology on 09-26-2024 [facility] Work Phone: XR SHOULDER RT MIN 2Von 09-05 [place] [address] XRay Report Signed Patient: MICHELLE BE MR#: [id number] : 1960 Acct:[id number] Age/Sex: 63 / F ADM Date: 09/26/24 Loc: [facility] Attending Dr: Elizabeth Culp NP Ordering Physician: Elizabeth Culp NP Date of Service: 09/26/24 Procedure(s): XR shoulder RT min 2V Accession Number(s): [id number] cc: Adelaida Carrion COMMUNICATIONS EQUIPMENT INSTALLER; Elizabeth Culp NP [place] [id number] Patient Name: MICHELLE BE MRN: [id number] date: 1960 Sex: F Assigned Patient Location: [facility] Current Patient Location: [facility] Accession/Order Number: [id number] Exam Date: 09/26/2024 13:34 Report Date: 09/26/2024 [...] No fracture or dislocation. Impression dictated by: Willi Guadalupe M.D. 09/26/2024 1:35 PM Dictation Location: [place] [address] Electronically authenticated by: [id number] Y Date: 09/26/2024 13:35 Dictated By: Willi Guadalupe M.D. Signed By: 09/26/24 1338 DD/ 34 TD/TT: Trailer Sections Assembler: [facility] Radiology, Radiologist, MD - 09/26/2024 [place] [address] XRay Report Signed Patient: MICHELLE BE MR#: [id number] : 1960 Acct:[id number] Age/Sex: 63 / F ADM Date: 09/26/24 Loc: [facility] Attending Dr: Elizabeth Culp NP Ordering Physician: Elizabeth Culp NP Date of Service: 09/26/24 Procedure(s): XR shoulder RT min 2V Accession Number(s): [id number] cc: Adelaida Carrion COMMUNICATIONS EQUIPMENT INSTALLER; Elizabeth Culp NP The [place] [id number] Patient Name: MICHELLE BE MRN: [facility]:[id number] date: 1960 Sex: F Assigned Patient Location: [facility] Current Patient Location: [facility] Accession/Order Number: [id number] Exam Date: 09/26/2024 13:34 Report Date: 09/26/2024 [...] No fracture or dislocation. Impression dictated by: Willi Guadalupe M.D. 09/26/2024 1:35 PM Dictation Location: [place] [address] Electronically authenticated by: [id number] Y Date: 09/26/2024 13:35 Dictated By: Willi Guadalupe M.D. Signed By: 09/26/248 DD/ 34 TD/TT: Trailer Sections Assembler: [facility] Radiology Study observation (narrative) [facility] XR SHOULDER RT MIN 2VOrdered By: Radiologist Radiology on 09-26-2024 [facility] Work Phone: HbA1c (Bld) [Mass fraction]o n 08-16-2024 Interpretation and review of laboratory results Normal [facility] - Hematology and Cell countson 08-16-2024 HbA1c (Bld) [Mass fraction] 5.6 % [facility] Complete Blood Count Auto Di ffon 03-05-2024 Basophils (Bld) [#/Vol] 0.0 10*3/uL Normal 0.0-0.2 [facility] Comment on above: Result Comment: PERF ORMED BY: [place] [address] PATHOLOGIST PERSONNEL SUPERVISOR ADIEL AGUSTIN M.D. Performed By: #### C BC MG, CMP #### [facility] [address] [place] [address] [place] Basophils/100 WBC (Bld) 0.5 % Normal . [facility] Comment on above: Performed By: #### C BC MG, CMP #### [facility] [address] [place] [address] [place] Eosinophils (Bld) [#/Vol] 0.2 10*3/uL Normal 0.0-0.45 [facility] Comment on above: Performed By: #### C BC, MG, CMP #### [place] [address] [place] Eosinophils/100 WBC (Bld) 2.2 % Normal . [facility] Comment on above: Performed By: #### C BC, MG, CMP #### [address] Erythrocyte distribution width (RBC) [Ratio] 14.5 % Normal 11.9-15.3 [facility] Comment on above: Performed By: #### C BC, MG, CMP #### [address] Hematocrit (Bld) [Volume fraction] 43.0 % Normal 34.0-46.4 [facility] Comment on above: Performed By: #### C BC, MG, CMP #### [address] Hemoglobin (Bld) [Mass/Vol] 14.3 g/dL Normal 11.8-15.4 [facility] Comment on above: Performed By: #### C BC, MG, CMP #### [place] [address] [place] Lymphocytes (Bld) [#/Vol] 1.8 10*3/uL Normal 1.00-4.8 [facility] Comment on above: Performed By: #### C BC, MG, CMP #### [place] [address] [place] Lymphocytes/100 WBC (Bld) 18.9 % Normal . [facility] Comment on above: Performed By: #### C BC, MG, CMP #### [address] MCH (RBC) [Entitic mass] 29.0 pg Normal 24.7-34.3 [facility] Comment on above: Performed By: #### C BC, MG, CMP #### [address] MCV (RBC) [Entitic vol] 87.0 fL Normal 80-100 [facility] Comment on above: Performed By: #### C BC, MG, CMP #### [facility] [address] Mean Corpuscular HGB Conc 33.4 g/dL Normal 32.0-35.0 [facility] Comment on above: Performed By: #### C BC, MG, CMP #### [facility] [address] [place] [address] [place] Monocytes (Bld) [#/Vol] 0.5 10*3/uL Normal 0.0-0.8 [facility] Comment on above: Performed By: #### C BC, MG, CMP #### [facility] [address] Monocytes/100 WBC (Bld) 5.5 % Normal . [facility] Comment on above: Performed By: #### C BC, MG, CMP #### [facility] [address] Neutrophils (Bld) [#/Vol] 7.0 10*3/uL Normal 1.8-7.7 [facility] Comment on above: Performed By: #### C BC, MG, CMP #### [facility] [address] [place] [address] [place] Neutrophils/100 WBC (Bld) 72.9 % Normal . [facility] Comment on above: Performed By: #### C BC, MG, CMP #### [facility] [address] [place] [address] [place] NRBC% 0.0 /100{WBC} Normal 0-0.5 [facility] Comment on above: Performed By: #### C BC, MG, CMP #### [facility] [address] [place] [address] [place] Platelet mean volume (Bld) [Entitic vol] 8.9 fL Normal 6.3-10.7 [facility] Comment on above: Performed By: #### C BC, MG, CMP #### [facility] [address] [place] [address] [place] Platelets (Bld) [#/Vol] 289 10*3/uL Normal 150-450 [facility] Comment on above: Performed By: #### C BC, MG, CMP #### [address] RBC (Bld) [#/Vol] 4.94 10*6/uL Normal 3.60-5.00 [facility] Comment on above: Performed By: #### C BC, MG, CMP #### [address] WBC (Bld) [#/Vol] 9.6 10*3/uL Normal 3.8-11.6 [facility] Comment on above: Performed By: #### C BC, MG, CMP #### [address] Comprehensive Metabolic Pane [place] 03-05-2024 Albumin [Mass/Vol] 4.4 g/dL Normal 3.5-5.7 [facility] Comment on above: Performed By: #### C BC, MG, CMP #### [address] Albumin/Globulin [Mass ratio] 1.3 {ratio} Normal [facility] Comment on above: Performed By: #### C BC, MG, CMP #### [address] ALP [Catalytic activity/Vol] 79 U/L Normal 34-104 [facility] Comment on above: Performed By: #### C BC, MG, CMP #### [address] ALT [Catalytic activity/Vol] 23 U/L Normal 7-52 [facility] Comment on above: Performed By: #### C BC, MG, CMP #### [address] Anion gap [Moles/Vol] 15.4 mmol/L High 6.0-15.0 [facility] Comment on above: Performed By: #### C BC, MG, CMP #### [address] AST [Catalytic activity/Vol] 36 U/L Normal 13-39 [facility] Comment on above: Performed By: #### C BC, MG, CMP #### [address] Bilirubin [Mass/Vol] 0.4 mg/dL Normal 0.3-1.0 [facility] Comment on above: Performed By: #### C BC, MG, CMP #### [address] Calcium [Mass/Vol] 9.5 mg/dL Normal 8.6-10.3 [facility] Comment on above: Performed By: #### C BC, MG, CMP #### [address] Chloride [Moles/Vol] 106 mmol/L Normal 98-107 [facility] Comment on above: Performed By: #### C BC, MG, CMP #### [address] CO2 [Moles/Vol] 23.1 mmol/L Normal 21.0-31.[address] [facility] Comment on above: Performed By: #### C BC, MG, CMP #### [address] Creatinine [Mass/Vol] 0.96 mg/dL Normal 0.60-1.20 [facility] Comment on above: Performed By: #### C BC, MG, CMP #### [address] Creatinine Clr Calc Pharmacy 84.51 Normal [facility] Comment on above: Performed By: #### C BC, MG, CMP #### [address] GFR/1.73 sq M.predicted MDRD (S/P/Bld) [Vol rate/Area] mL/min/{1.73_m2} Normal [facility] Comment on above: Performed By: #### C BC, MG, CMP #### [address] Globulin (S) [Mass/Vol] 3.3 g/dL Normal [facility] Comment on above: Performed By: #### C BC, MG, CMP #### [facility] [address] Glucose [Mass/Vol] 133 mg/dL High 70-100 [facility] Comment on above: Result Comment: [place] Glucose Reference Range is dependent on time and content of last meal. Glucose of more than 200 mg/dL in a nonstressed, ambulatory subject supports the diagnosis of Diabetes Mellitus. ADA recommended reference range Performed By: #### C BC, MG, CMP #### [address] Potassium [Moles/Vol] 3.5 mmol/L Normal 3.5-5.1 [facility] Comment on above: Performed By: #### C BC, MG, CMP #### [address] Protein [Mass/Vol] 7.7 g/dL Normal 6.4-8.9 [facility] Comment on above: Performed By: #### C BC, MG, CMP #### [address] Sodium [Moles/Vol] 141 mmol/L Normal 136-145 [facility] Comment on above: Performed By: #### C BC, MG, CMP #### [address] Urea nitrogen [Mass/Vol] 18 mg/dL Normal 7-25 [facility] Comment on above: Performed By: #### C BC, MG, CMP #### [address] Magnesiumon 03-05-2024 Magnesium [Mass/Vol] 2.0 mg/dL Normal 1.9-2.7 [facility] Comment on above: Result Comment: PERF ORMED BY: [place] [address] PATHOLOGIST PERSONNEL SUPERVISOR ADIEL AGUSTIN M.D. Performed By: #### C BC, MG, CMP #### [address] Complete Blood Count Auto Di ffon 03-04-2024 Basophils (Bld) [#/Vol] 0.1 10*3/uL Normal 0.0-0.2 [facility] Comment on above: Result Comment: PERF ORMED BY: [place] [address] PATHOLOGIST PERSONNEL SUPERVISOR ADIEL AGUSTIN M.D. Performed By: #### C MP, MG, CBC #### [address] Basophils/100 WBC (Bld) 0.6 % Normal . [facility] Comment on above: Performed By: #### C MP, MG, CBC #### [address] Eosinophils (Bld) [#/Vol] 0.2 10*3/uL Normal 0.0-0.45 [facility] Comment on above: Performed By: #### C MP, MG, CBC #### [address] Eosinophils/100 WBC (Bld) 1.9 % Normal . [facility] Comment on above: Performed By: #### C MP, MG, CBC #### [address] Erythrocyte distribution width (RBC) [Ratio] 14.6 % Normal 11.9-15.3 [facility] Comment on above: Performed By: #### C MP, MG, CBC #### [address] Hematocrit (Bld) [Volume fraction] 43.5 % Normal 34.0-46.4 [facility] Comment on above: Performed By: #### C MP, MG, CBC #### [address] Hemoglobin (Bld) [Mass/Vol] 14.4 g/dL Normal 11.8-15.4 [facility] Comment on above: Performed By: #### C MP, MG, CBC #### [facility] [address] Lymphocytes (Bld) [#/Vol] 1.8 10*3/uL Normal 1.00-4.8 [facility] Comment on above: Performed By: #### C MP, MG, CBC #### [address] Lymphocytes/100 WBC (Bld) 18.0 % Normal . [facility] Comment on above: Performed By: #### C MP, MG, CBC #### [address] MCH (RBC) [Entitic mass] 28.8 pg Normal 24.7-34.3 [facility] Comment on above: Performed By: #### C MP, MG, CBC #### [address] MCV (RBC) [Entitic vol] 87.0 fL Normal 80-100 [facility] Comment on above: Performed By: #### C MP, MG, CBC #### [address] Mean Corpuscular HGB Conc 33.2 g/dL Normal 32.0-35.0 [facility] Comment on above: Performed By: #### C MP, MG, CBC #### [address] Monocytes (Bld) [#/Vol] 0.8 10*3/uL Normal 0.0-0.8 [facility] Comment on above: Performed By: #### C MP, MG, CBC #### [place] [address] [place] Monocytes/100 WBC (Bld) 8.2 % Normal . [facility] Comment on above: Performed By: #### C MP, MG, CBC #### [address] Neutrophils (Bld) [#/Vol] 7.3 10*3/uL Normal 1.8-7.7 [facility] Comment on above: Performed By: #### C MP, MG, CBC #### [address] Neutrophils/100 WBC (Bld) 71.3 % Normal . [facility] Comment on above: Performed By: #### C MP, MG, CBC #### [facility] [address] NRBC% 0.1 /100{WBC} Normal 0-0.5 [facility] Comment on above: Performed By: #### C MP, MG, CBC #### [address] Platelet mean volume (Bld) [Entitic vol] 8.8 fL Normal 6.3-10.7 [facility] Comment on above: Performed By: #### C MP, MG, CBC #### [address] Platelets (Bld) [#/Vol] 334 10*3/uL Normal 150-450 [facility] Comment on above: Performed By: #### C MP, MG, CBC #### [address] RBC (Bld) [#/Vol] 5.01 10*6/uL High 3.60-5.00 [facility] Comment on above: Performed By: #### C MP, MG, CBC #### [address] WBC (Bld) [#/Vol] 10.3 10*3/uL Normal 3.8-11.6 [facility] Comment on above: Performed By: #### C MP, MG, CBC #### [address] Comprehensive Metabolic Pane [place] 03-04-2024 Albumin [Mass/Vol] 4.5 g/dL Normal 3.5-5.7 [facility] Comment on above: Performed By: #### C MP, MG, CBC #### [address] Albumin/Globulin [Mass ratio] 1.4 {ratio} Normal [facility] Comment on above: Performed By: #### C MP, MG, CBC #### [address] ALP [Catalytic activity/Vol] 79 U/L Normal 34-104 [facility] Comment on above: Performed By: #### C MP, MG, CBC #### [address] ALT [Catalytic activity/Vol] 19 U/L Normal 7-52 [facility] Comment on above: Performed By: #### C MP, MG, CBC #### [address] Anion gap [Moles/Vol] 11.4 mmol/L Normal 6.0-15.0 [facility] Comment on above: Performed By: #### C MP, MG, CBC #### [address] AST [Catalytic activity/Vol] 37 U/L Normal 13-39 [facility] Comment on above: Performed By: #### C MP, MG, CBC #### [address] Bilirubin [Mass/Vol] 0.5 mg/dL Normal 0.3-1.0 [facility] Comment on above: Performed By: #### C MP, MG, CBC #### [address] Calcium [Mass/Vol] 9.6 mg/dL Normal 8.6-10.3 [facility] Comment on above: Performed By: #### C MP, MG, CBC #### [place] [address] [place] Chloride [Moles/Vol] 107 mmol/L Normal 98-107 [facility] Comment on above: Performed By: #### C MP, MG, CBC #### [place] [address] [place] CO2 [Moles/Vol] 27.4 mmol/L Normal 21.0-31.[address] [facility] Comment on above: Performed By: #### C MP, MG, CBC #### [address] Creatinine [Mass/Vol] 0.91 mg/dL Normal 0.60-1.20 [facility] Comment on above: Performed By: #### C MP, MG, CBC #### [place] [address] [place] Creatinine Clr Calc Pharmacy 90.12 Normal [facility] Comment on above: Performed By: #### C MP, MG, CBC #### [place] [address] [place] GFR/1.73 sq M.predicted MDRD (S/P/Bld) [Vol rate/Area] mL/min/{1.73_m2} Normal [facility] Comment on above: Performed By: #### C MP, MG, CBC #### [address] Globulin (S) [Mass/Vol] 3.2 g/dL Normal [facility] Comment on above: Performed By: #### C MP, MG, CBC #### [address] Glucose [Mass/Vol] 100 mg/dL Normal 70-100 [facility] Comment on above: Result Comment: [facility] Glucose Reference Range is dependent on time and content of last meal. Glucose of more than 200 mg/dL in a nonstressed, ambulatory subject supports the diagnosis of Diabetes Mellitus. ADA recommended reference range Performed By: #### C MP, MG, CBC #### [place] [address] [place] Potassium [Moles/Vol] 3.8 mmol/L Normal 3.5-5.1 [facility] Comment on above: Performed By: #### C MP, MG, CBC #### [place] [address] [place] Protein [Mass/Vol] 7.7 g/dL Normal 6.4-8.9 [facility] Comment on above: Performed By: #### C MP, MG, CBC #### [facility] [address] Sodium [Moles/Vol] 142 mmol/L Normal 136-145 [facility] Comment on above: Performed By: #### C MP, MG, CBC #### [facility] [address] Urea nitrogen [Mass/Vol] 15 mg/dL Normal 7-25 [facility] Comment on above: Performed By: #### C MP, MG, CBC #### [address] MR head/brain wo/w conon MR head/brain wo/w con [facility] [place] [address] [place] [address] MRI Report Signed Patient: Michelle Be MR#: [id number] : 1960 Acct:[id number] Age/Sex: 63 / F ADM Date: 03/03/24 Loc: Room: [address] [place] [address] Type: ADM IN Attending Dr: Delta Gan [...] Willi Guadalupe M.D.03/04/2024 2:32 PM Dictation Location: [place] [address] Transcribed By: [facility] 03/04/24 1432 Dictated By: Willi Guadalupe II, MD 03/04/241423 Signed By: 03/04/24 1432 Normal [facility] Magnesiumon 03-04-2024 Magnesium [Mass/Vol] 2.0 mg/dL Normal 1.9-2.7 [facility] Comment on above: Result Comment: PERF ORMED BY: [place] [address] PATHOLOGIST PERSONNEL SUPERVISOR ADIEL AGUSTIN M.D. Performed By: #### C MP, MG, CBC #### [facility] [address] [place] [address] Complete Blood Count Auto Di ffon 03-03-2024 Basophils (Bld) [#/Vol] 0.1 10*3/uL Normal 0.0-0.2 [facility] Comment on above: Order Comment: WEN BELLA,160 Result Comment: PERF ORMED BY: [place] [address] PATHOLOGIST PERSONNEL SUPERVISOR ADIEL AGUSTIN M.D. Performed By: #### C BC, CMP #### [address] Basophils/100 WBC (Bld) 0.6 % Normal . [facility] Comment on above: Order Comment: WEN BELLA,160 Performed By: #### C ANAMARIA, CMP #### [place] [address] [place] Eosinophils (Bld) [#/Vol] 0.1 10*3/uL Normal 0.0-0.45 [facility] Comment on above: Order Comment: RIN T O COME TRY,KAH,1607 Performed By: #### C BC, CMP #### [place] [address] [place] Eosinophils/100 WBC (Bld) 1.0 % Normal . [facility] Comment on above: Order Comment: RIN T O COME TRY,KAH,1607 Performed By: #### C BC, CMP #### [address] Erythrocyte distribution width (RBC) [Ratio] 14.6 % Normal 11.9-15.3 [facility] Comment on above: Order Comment: RIN T O COME TRY,KAH,1607 Performed By: #### C BC, CMP #### [address] Hematocrit (Bld) [Volume fraction] 42.9 % Normal 34.0-46.4 [facility] Comment on above: Order Comment: RIN T O COME TRY,KAH,1607 Performed By: #### C BC, CMP #### [address] Hemoglobin (Bld) [Mass/Vol] 14.5 g/dL Normal 11.8-15.4 [facility] Comment on above: Order Comment: RIN T O COME TRY,KAH,1607 Performed By: #### C BC, CMP #### [place] [address] [place] Lymphocytes (Bld) [#/Vol] 1.7 10*3/uL Normal 1.00-4.8 [facility] Comment on above: Order Comment: RIN T O COME TRY,KAH,1607 Performed By: #### C BC, CMP #### [place] [address] [place] Lymphocytes/100 WBC (Bld) 15.7 % Normal . [facility] Comment on above: Order Comment: RIN T O COME TRY,KAH,1607 Performed By: #### C BC, CMP #### [address] MCH (RBC) [Entitic mass] 29.1 pg Normal 24.7-34.3 [facility] Comment on above: Order Comment: RIN T O COME TRY,KAH,1607 Performed By: #### C BC, CMP #### [address] MCV (RBC) [Entitic vol] 85.9 fL Normal 80-100 [facility] Comment on above: Order Comment: RIN T O COME TRY,KAH,1607 Performed By: #### C BC, CMP #### [address] Mean Corpuscular HGB Conc 33.8 g/dL Normal 32.0-35.0 [facility] Comment on above: Order Comment: RIN T O COME TRY,KAH,1607 Performed By: #### C BC, CMP #### [address] Monocytes (Bld) [#/Vol] 0.9 10*3/uL High 0.0-0.8 [facility] Comment on above: Order Comment: RIN T O COME TRY,KAH,1607 Performed By: #### C BC, CMP #### [address] Monocytes/100 WBC (Bld) 8.4 % Normal . [facility] Comment on above: Order Comment: RIN T O COME TRY,KAH,1607 Performed By: #### C BC, CMP #### [place] [address] [place] Neutrophils (Bld) [#/Vol] 8.0 10*3/uL High 1.8-7.7 [facility] Comment on above: Order Comment: RIN T O COME TRY,KAH,1607 Performed By: #### C BC, CMP #### [place] [address] [place] Neutrophils/100 WBC (Bld) 74.3 % Normal . [facility] Comment on above: Order Comment: RIN T O COME TRY,KAH,1607 Performed By: #### C BC, CMP #### [facility] [address] NRBC% 0.1 /100{WBC} Normal 0-0.5 [facility] Comment on above: Order Comment: RIN T O COME TRY,KAH,1607 Performed By: #### C BC, CMP #### [facility] [address] Platelet mean volume (Bld) [Entitic vol] 8.9 fL Normal 6.3-10.7 [facility] Comment on above: Order Comment: RIN T O COME TRY,KAH,1607 Performed By: #### C BC, CMP #### [facility] [address] Platelets (Bld) [#/Vol] 291 10*3/uL Normal 150-450 [facility] Comment on above: Order Comment: RIN T O COME TRY,KAH,1607 Performed By: #### C BC, CMP #### [facility] [address] [place] [address] [place] RBC (Bld) [#/Vol] 4.99 10*6/uL Normal 3.60-5.00 [facility] Comment on above: Order Comment: RIN T O COME TRY,KAH,1607 Performed By: #### C BC, CMP #### [facility] [address] WBC (Bld) [#/Vol] 10.7 10*3/uL Normal 3.8-11.6 [facility] Comment on above: Order Comment: RIN T O COME TRY,KAH,1607 Performed By: #### C BC, CMP #### [address] Comprehensive Metabolic Pane [place] 03-03-2024 Albumin [Mass/Vol] 4.6 g/dL Normal 3.5-5.7 [facility] Comment on above: Order Comment: RIN T O COME TRY,KAH,160 Performed By: #### C BC, CMP #### [facility] [address] [place] [address] [place] Albumin/Globulin [Mass ratio] 1.4 {ratio} Normal [facility] Comment on above: Order Comment: RIN T O COME TRY,KAH,160 Performed By: #### C BC, CMP #### [facility] [address] [place] [id number] [place] ALP [Catalytic activity/Vol] 80 U/L Normal 34-104 [facility] Comment on above: Order Comment: RIN T O COME TRY,KAH,160 Performed By: #### C BC, CMP #### [facility] [address] [place] [address] [place] ALT [Catalytic activity/Vol] 16 U/L Normal 7-52 [facility] Comment on above: Order Comment: RIN T O COME TRY,KAH,160 Performed By: #### C BC, CMP #### [facility] [address] Anion gap [Moles/Vol] 13.6 mmol/L Normal 6.0-15.0 Th [facility] Comment on above: Order Comment: RIN T O COME TRY,KAH,160 Performed By: #### C BC, CMP #### [address] AST [Catalytic activity/Vol] 35 U/L Normal 13-39 [facility] Comment on above: Order Comment: RIN T O COME TRY,KAH,160 Performed By: #### C BC, CMP #### [place] [id number] [place] Bilirubin [Mass/Vol] 0.3 mg/dL Normal 0.3-1.0 [facility] Comment on above: Order Comment: RIN T O COME TRY,KAH,160 Performed By: #### C BC, CMP #### [facility] [address] [place] [address] [place] Calcium [Mass/Vol] 9.3 mg/dL Normal 8.6-10.3 [facility] Comment on above: Order Comment: RIN T O COME TRY,KAH,1606 Performed By: #### C BC, CMP #### [address] Chloride [Moles/Vol] 109 mmol/L High 98-107 [facility] Comment on above: Order Comment: RIN T O COME TRY,KAH,1606 Performed By: #### C BC, CMP #### [address] CO2 [Moles/Vol] 22.4 mmol/L Normal 21.0-31.[address] [facility] Comment on above: Order Comment: RIN T O COME TRY,KAH,1606 Performed By: #### C BC, CMP #### [address] Creatinine [Mass/Vol] 0.93 mg/dL Normal 0.60-1.20 [facility] Comment on above: Order Comment: RIN T O COME TRY,KAH,1606 Performed By: #### C BC, CMP #### [address] Creatinine Clr Calc Pharmacy 87.94 Normal [facility] Comment on above: Order Comment: RIN T O COME TRY,KAH,1606 Result Comment: PERF ORMED BY: [place] [address] PATHOLOGIST PERSONNEL SUPERVISOR ADIEL AGUSTIN M.D. Performed By: #### C BC, CMP #### [address] GFR/1.73 sq M.predicted MDRD (S/P/Bld) [Vol rate/Area] mL/min/{1.73_m2} Normal [facility] Comment on above: Order Comment: RIN T O COME TRY,KAH,1606 Performed By: #### C BC, CMP #### [facility] [address] Globulin (S) [Mass/Vol] 3.2 g/dL Normal [facility] Comment on above: Order Comment: RIN T O COME TRY,KAH,1606 Performed By: #### C BC, CMP #### [facility] [address] [id number] [facility] Glucose [Mass/Vol] 105 mg/dL High 70-100 [facility] Comment on above: Order Comment: REY T O COME TRY,KAH,1606 Result Comment: [place] Glucose Reference Range is dependent on time and content of last meal. Glucose of more than 200 mg/dL in a nonstressed, ambulatory subject supports the diagnosis of Diabetes Mellitus. ADA recommended reference range Performed By: #### C BC, CMP #### [facility] [address] [id number] [facility] Potassium [Moles/Vol] 4.0 mmol/L Normal 3.5-5.1 [facility] Comment on above: Order Comment: REY T O COME TRY,,1606 Performed By: #### C BC, CMP #### [facility] [address] [id number] [place] Protein [Mass/Vol] 7.8 g/dL Normal 6.4-8.9 [facility] Comment on above: Order Comment: REY T O JAK TRY,KAH,1606 Performed By: #### C BC, CMP #### [facility] [address] [id number] [place] Sodium [Moles/Vol] 141 mmol/L Normal 136-145 [facility] Comment on above: Order Comment: REY T O JAK TRY,,1606 Performed By: #### C BC, CMP #### [facility] [address] [id number] [place] Urea nitrogen [Mass/Vol] 15 mg/dL Normal 7-25 [facility] Comment on above: Order Comment: REY T O JAK TRY,,1606 Performed By: #### C BC, CMP #### [facility] [address] [id number] [place] IGP,APTIMA HPV,AGE GDLNon AGE GDLN ACOG TESTING Note . [facility] Comment on above: TESTS RESULT FLAG UN ITS REF RANGE LAB Clinician Provided Cytology Information Source.............Cervix;Endocervix No. of containers..01 ThinPrep Vial Age Gigi WILDE Tona... 3065 FLAG LEGEND: L-Low Normal,H-High Normal,LL-Alert Low,HH-Alert High <-Panic Low,>-Panic High,A-Abnormal,AA-Critical Abnormal Performed at: 01 =G [address] [address] Farzana Hennessy MD, HPV APTIMA Negative Negative [facility] Comment on above: This nucleic acid am plification test detects fourteen high- risk HPV types (16,18,31,33,35,39,45,51,52,56,58,59,66,68) without differentiation. Performed at: =G - [facility] [id number] [employer] Business Analyst: Farzana Hennessy MD, Phone: [phone] Performed at: [facility] [address] [place] [id number] [employer] Business Analyst: Scott Sandoval MD, Phone: [phone] IGP, APTIMA HPV, RFX 16/18,45 Note . [facility] Comment on above: TESTS RESULT FLAG UN ITS REF RANGE LAB DIAGNOSIS: 02 NEGATIVE FOR INTRAEPITHELIAL LESION OR MALIGNANCY. Specimen adequacy: 02 Satisfactory for evaluation. Endocervical and/or squamous metaplastic cells (endocervical component) are present. Performed by: 02 Adelaida Bustamante, Associate Marketing Manager ([facility]) . 02 Note: Note 03 [...] High,A-Abnormal,AA-Critical Abnormal Performed at: 02 [facility] [address] [place] [address] Scott Sandoval MD, 03 WB [facility] [address] [address] Farzana Hennessy MD, BROOM-ALONE [facility] Urinalysis macro (dipstick) panel (U)on 01-28-2024 Bilirubin, UA Negative Negative - 4(70) +++ mg/dL [facility] Blood, UA Negative Negative - 50 Kranthi/mcL [facility] Clarity, UA Clear [facility] Color, UA Dark Tania [facility] Glucose, UA Negative Negative - 1999(110) ++++ mg/dL [facility] Interpretation and review of laboratory results Abnormal [facility] Ketones, UA Negative Negative - 160(16) ++++ mg/dL [facility] Leukocytes, UA Trace Negative - 500+++ Radha/mcL [facility] Nitrite, UA Negative Negative - Positive [facility] pH, UA 5.5 5 - 9 [facility] Protein, UA Negative Negative - 1999(20) ++++ mg/dL [facility] Spec Grav, UA 1.025 1 - 1.03 [facility] Urobilinogen, UA 0.2 0.2 - 12 mg/dL [facility] MHPT CULT,URINEon 01-23-2024 Interpretation and review of laboratory results Abnormal [facility] Specimen Description .CLEAN CATCH URINE [facility] Culture ESCHERICHIA COLI >100,000 CFU/ML Abnormal [facility] STREPTOCOCCI, BETA HEMOLYTIC GROUP B 10 to 50,000 CFU/ML Abnormal [facility] Report Status FINAL 01/23/2024 [facility] SUSCEPTIBILITY [facility] Organism ESCHERICHIA COLI [facility] Method CROW [facility] Ampicillin 16 INTERMEDIATE Intermediate [facility] Cefazolin <=4 SUSCEPTIBLE Susceptible [facility] Cefazolin sensitivit y results can be used to predict the effectiveness of oral Susceptible [facility] cephalosporins (eg. Cephalexin) in uncomplicated Urinary Tract Infections due Susceptible [facility]PT CULT,URINE to E. coli, K. pneumoniae, and P. mirabilis Susceptible [facility]PT CULT,URINE Ceftriaxone <=0.25 SUSCEPTIBLE Susceptible [facility] Negative Susceptible [facility]PT CULT,URINE Gentamicin <=1 SUSCEPTIBLE Susceptible [facility] Levofloxacin <=0.12 SUSCEPTIBLE Susceptible [facility] Nitrofurantoin <=16 SUSCEPTIBLE Susceptible [facility] Piperacillin/Tazobac ta m <=4 SUSCEPTIBLE Susceptible [facility] Tobramycin <=1 SUSCEPTIBLE Susceptible [facility] Trimethoprim/Sulfa <=20 SUSCEPTIBLE Susceptible [facility] Original Ordering Provider[facility] BASIC METABOLIC PANELon 01-05-2024 Anion gap [Moles/Vol] 11.1 mmol/L [facility] Calcium [Mass/Vol] 9.2 mg/dL 8.5 - 10. 1 mg/dL [facility] Chloride [Moles/Vol] 105 mmol/L 98 - 10 7 mmol/L [facility] CO2 [Moles/Vol] 28.0 mmol/L 21.0 - 32.0 mmol/L [facility] Creatinine [Mass/Vol] 1.08 mg/dL High 0.55 - 1.02 mg/dL [facility] GFR/1.73 sq M.predicted CKD-EPI (S/P/Bld) [Vol rate/Area] >60 60 - PINF [facility] Glucose [Mass/Vol] 92 mg/dL 74 - 106 mg/dL [facility] Interpretation and review of laboratory results Abnormal [facility] Potassium [Moles/Vol] 4.1 mmol/L 3.5 - 5.1 mmol/L [facility] Sodium [Moles/Vol] 140 mmol/L 136 - 145 mmol/L [facility] TBH EGFR-NON AF LATVIAN 51 Low 60 - PINF [facility] Urea nitrogen [Mass/Vol] 17.0 mg/dL 7.0 - 18.0 mg/dL [facility] Urea nitrogen/Creatinine [Mass ratio] 15.7 mg/mg [facility] Amphetamine Screen Ql (U)Ord ered By: Jace Graham on 03-23-2023 Amphetamines Ql (U) Negative Negative [facility] Barbiturates [Presence] in U rine by Screen methodOrdered By: Jace Graham on 03-23-2023 Barbiturates Screen Ql (U) Negative Negative [facility] Benzodiazepines Screen Ql (U )Ordered By: Jace Graham on 03-23-2023 Benzodiazepines Ql (U) Negative Negative [facility] Benzoylecgonine [Presence] i n Urine by Screen methodOrdered By: Jace Graham on 03-23-2023 Benzoylecgonine Screen Ql (U) Negative Negative [facility] Cannabinoids [Presence] in U rine by Screen methodOrdered By: Jace Graham on 03-23-2023 Cannabinoids Screen Ql (U) Negative Negative [facility] Comment on above: These are unconfirme d results and should not be used for legal purposes. Drug Cut-Off Concentration: AMPH 1000 ng/mL ELKIN 200 ng/mL ATIYA 200 ng/mL COCM 300 ng/mL OP 300 ng/mL PCP 25 ng/mL THC 20 ng/mL Opiates [Presence] in Urine by Screen methodOrdered By: Jace Graham on 03-23-2023 Opiates Screen Ql (U) Negative Negative [facility] Phencyclidine Screen Ql (U)O rdered By: Jace Graham on 03-23-2023 Phencyclidine Ql (U) Negative Negative [facility] Cholesterol [Mass/volume] in Serum or PlasmaOrdered By: Eduardo Monk on 11-18-2022 Cholesterol [Mass/Vol] 159 mg/dL 140-200 [facility] Comment on above: Chol less than 200 m g/dl low riskChol 201-239 mg/dl borderline riskChol 240 mg/dl and greater high risk Cholesterol in LDL Calc [Mas s/Vol]Ordered By: Eduardo Monk on 11-18-2022 Cholesterol in LDL [Mass/Vol] 84 mg/dL 0-100 [facility] Comment on above: LDL ATP III CLASSIFI CATIONLDL less than 100 mg/dL OptimalLDL 100-129 mg/dL Near or above optimalLDL 130-159 mg/dL Borderline highLDL 160-189 mg/dL HighLDL greater than 189 mg/dL Very high Cholesterol in VLDL Calc [Ma ss/Vol]Ordered By: Eduardo Monk on 11-18-2022 Cholesterol in VLDL [Mass/Vol] 28 mg/dL [facility] Serum or plasma high density lipoprotein (HDL) cholesterol measurementOrdered By: Eudardo Monk on 11-18-2022 Cholesterol in HDL [Mass/Vol] 46 mg/dL 23-92 [facility] Comment on above: HDL CHOL ATP-III CLA SSIFICATION Cardiovascular RiskHDL > or equal to 60 mg/dL LOWHDL < 40 mg/dL HIGH Serum or plasma total choles terol/high density lipoprotein (HDL) cholesterol mass ratOrdered By: Eduardo Monk on 11-18-2022 Cholesterol.total/Chol esterol in HDL [Mass ratio] 3.5 {ratio} <5.0 [facility] Thyrotropin [Units/volume] i n Serum or PlasmaOrdered By: Eduardo Monk on 11-18-2022 TSH Qn 2.13 m[IU]/L 0.45-5.33 [facility] Triglyceride [Mass/volume] i n Serum or PlasmaOrdered By: Eduardo Monk on 11-18-2022 Triglyceride [Mass/Vol] 144 mg/dL 0-149 [facility] Comment on above: TRIG ATP III CLASSIF ICATIONTRIG less than 150 mg/dL NormalTRIG 150-199 mg/dL Borderline highTRIG 200-500 mg/dL High TRIG greater than 500 mg/dL Very highStandard traceable to the Center for Disease Conrtrol and Prevention (CDC) test method. Vitamin D+Metabolites [Mass/ volume] in Serum or PlasmaOrdered By: Eduardo Monk on 11-18-2022 Vitamin D+Metabolites [Mass/Vol] 50.4 ng/mL 30-100 [facility] Comment on above: VITAMIN D STATUS 25( [place])VITAMIN D RANGE (ng/mL) Deficient <20 Insufficient 20 to <30Sufficient 30 to 100Reference: Bin MF,Lakshmi NC, Cristian SMART, et al. Evaluation,treatment, and prevention of vitamin D deficiency; an Endocrine Society clinical practice guideline. JCEM. 2010; 96(7):1911-30. CBC AUTO DIFFon 07-25-2022 BASO # 0.1 103/ul Normal 0.0-0.1 [facility] Comment on above: Performed By: #### A 1C #### [facility] [address] [place] [address] Dr. Bebeto Alvarado Basophils/100 WBC (Bld) 0.6 % Normal 0.2-2.0 [facility] Comment on above: Performed By: #### A 1C #### [facility] [address] [address] [address] Bebeto Alvarado EO # 0.2 103/ul Normal 0.0-0.7 [facility] Comment on above: Performed By: #### A 1C #### [facility] [address] [place] [address] Dr. Bebeto Alvarado Eosinophils/100 WBC (Bld) 2.3 % Normal 0.9-7.0 [facility] Comment on above: Performed By: #### A 1C #### [facility] [address] [place] [address] Dr. Bebeto Alvarado Erythrocyte distribution width (RBC) [Ratio] 13.8 % Normal 11.0-15.0 [facility] Comment on above: Performed By: #### A 1C #### [facility] [address] [place] [address] Dr. Bebeto Alvarado Hematocrit (Bld) [Volume fraction] 41.2 % Normal 36.0-48.0 [facility] Comment on above: Performed By: #### A 1C #### [facility] [address] [place] [address] Dr. Bebeto Alvarado Hemoglobin (Bld) [Mass/Vol] 13.2 g/dL Normal 12.0-16.0 [facility] Comment on above: Performed By: #### A 1C #### [facility] [address] [place] [address] Dr. Bebeto Alvarado IG # 0.03 10e3/ul Normal 0.00-0.03 [facility] Comment on above: Performed By: #### A 1C #### [facility] [address] [place] [address] Dr. Bebeto Alvarado IG % 0.4 % Normal 0.0-0.5 [facility] Comment on above: Performed By: #### A 1C #### [facility] [address] [place] [address] Dr. Bebeto Alvarado LYMPH # 2.1 103/ul Normal 1.2-3.8 [facility] Comment on above: Performed By: #### A 1C #### [facility] [address] [place] [address] Dr. Bebeto Alvarado Lymphocytes/100 WBC (Bld) 25.9 % Normal 20.5-60.0 [facility] Comment on above: Performed By: #### A 1C #### [facility] [address] [place] [address] Dr. Bebeto Alvarado MANUAL DIFF REQ NO Normal [facility] Comment on above: Performed By: #### A 1C #### [facility] [address] [place] [address] Dr. Bebeto Alvarado MCH (RBC) [Entitic mass] 28.0 pg Normal 26.7-34.0 [facility] Comment on above: Performed By: #### A 1C #### [facility] [address] [place] [address] Dr. Bebeto Alvarado MCHC (RBC) [Mass/Vol] 32.0 g/dL Normal 29.9-35.2 [facility] Comment on above: Performed By: #### A 1C #### [facility] [address] [place] [address] Dr. Bebeto Alvarado MCV (RBC) [Entitic vol] 87.5 fL Normal 81.0-99.0 [facility] Comment on above: Performed By: #### A 1C #### [facility] [address] [place] [address] Dr. Bebeto Alvarado MONO # 0.5 103/ul Normal 0.3-0.8 [facility] Comment on above: Performed By: #### A 1C #### [facility] [address] [place] [address] Dr. Bebeto Alvarado Monocytes/100 WBC (Bld) 6.6 % Normal 1.7-12.0 [facility] Comment on above: Performed By: #### A 1C #### [facility] [address] [place] [address] Dr. Bebeto Alvarado NEUT # 5.1 103/ul Normal 1.4-6.5 [facility] Comment on above: Performed By: #### A 1C #### [facility] [address] [place] [address] Dr. Bebeto Alvarado Neutrophils/100 WBC (Bld) 64.2 % Normal 43.0-75.0 [facility] Comment on above: Performed By: #### A 1C #### [facility] [address] [address] [address] Bebeto Alvarado Platelet mean volume (Bld) [Entitic vol] 11.2 fL Normal 9.5-13.5 [facility] Comment on above: Performed By: #### A 1C #### [facility] [address] [place] [address] Dr. Bebeto Alvarado PLT 252 103/ul Normal 150-450 [facility] Comment on above: Performed By: #### A 1C #### [facility] [address] [place] [address] Dr. Bebeto Alvarado RBC 4.71 106/ul Normal 4.20-5.40 [facility] Comment on above: Performed By: #### A 1C #### [facility] [address] [place] [address] Dr. Bebeto Alvarado WBC 8.0 103/ul Normal 4.0-11.0 [facility] Comment on above: Performed By: #### A 1C #### [facility] [address] [place] [address] Dr. Bebeto Alvarado GLYCOHEMOGLOBIN A1Con 2022 ADA RECOMMENDATION SEE BELOW Normal [facility] Comment on above: Result Comment: ADA RECOMMENDED LIMIT 4.0 - 6.0 ADA THERAPEUTIC TARGET < 7.0 ACTION SUGGESTED > 7.0 Performed By: #### A 1C #### [facility] [address] [place] [address] Dr. Bebeto Alvarado Glucose [Mass/Vol] 114 mg/dL Normal [facility] Comment on above: Performed By: #### A 1C #### [facility] [address] [place] [address] Dr. Bebeto Alvarado HbA1c (Bld) [Mass fraction] 5.6 % Normal 4.5-6.2 [facility] Comment on above: Performed By: #### A 1C #### [facility] [address] [place] [address] Dr. Bebeto Alvarado IRONon 07-25-2022 Iron [Mass/Vol] 60.0 ug/dL Normal 50.0-170.0 [facility] [place] [facility] Comment on above: Performed By: #### V ITB12, IRON #### [facility] [address] [place], [place] [address] Dr. Bebeto Alvarado LIPID PROFILEon 07-25-2022 CHOL-HDL RATIO NORM SEE BELOW Normal [facility] Comment on above: Result Comment: 3.3 - 4.4 LOW RISK 4.4 - 7.1 AVERAGE RISK 7.1 - 11.0 MODERATE RISK >11.0 HIGH RISK Performed By: #### C MP, LIPID #### [facility] [address] [address] [address] Bebeto Alvarado Cholesterol [Mass/Vol] 144 mg/dL Normal <=200 [facility] Comment on above: Performed By: #### C MP, LIPID #### [facility] [address] [address] [address] Bebeto Alvarado Cholesterol in HDL [Mass/Vol] 39 mg/dL Critically low 40-60 [facility] Comment on above: Performed By: #### C MP, LIPID #### [facility] [address] [address] [address] Bebeto Alvarado Cholesterol in LDL [Mass/Vol] 74.6 mg/dL Normal [facility] Comment on above: Performed By: #### C MP, LIPID #### [facility] [address] [place], [place] [address] Dr. Bebeto Alvarado Cholesterol.total/Chol esterol in HDL [Mass ratio] 3.7 {ratio} Normal [facility] Comment on above: Performed By: #### C MP, LIPID #### [facility] [address] [address] [address] Bebeto Alvarado HDL NORMAL > or = 60 mg/dl - LO W CARDIOVASCULAR RISK <40 mg/dl - HIGH CARDIOVASCULAR RISK Normal [facility] Comment on above: Performed By: #### C MP, LIPID #### [facility] [address] [address] [address] Bebeto Alvarado LDL CALC NORMAL SEE BELOW Normal [facility] [place] [facility] Comment on above: Result Comment: <100 mg/dl OPTIMAL 100 - 129 mg/dl NEAR OR ABOVE OPTIMAL 130 - 159 mg/dl BORDERLINE HIGH 160 - 189 mg/dl HIGH >190 mg/dl VERY HIGH Performed By: #### C MP, LIPID #### [facility] [address] [place] [address] Dr. Bebeto Alvarado Triglyceride [Mass/Vol] 152 mg/dL Critically high <=150 [facility] Comment on above: Performed By: #### C MP, LIPID #### [facility] [address] [place] [address] Dr. Bebeto Alvarado VLDL CALC 30.4 mg/dL Normal [facility] Comment on above: Performed By: #### C MP, LIPID #### [facility] [address] [place] [address] Dr. Bebeto Alvarado PROF 14(COMP METB)on 023 Albumin [Mass/Vol] 3.7 g/dL Normal 3.4-5.0 [facility] Comment on above: Performed By: #### C MP, LIPID #### [facility] [address] [place] [address] Dr. Bebeto Alvarado Albumin/Globulin [Mass ratio] 0.9 {ratio} Normal [facility] Comment on above: Performed By: #### C MP, LIPID #### [facility] [address] [place] [address] Dr. Bebeto Alvarado ALP [Catalytic activity/Vol] 90 U/L Normal 46-116 [facility] Comment on above: Performed By: #### C MP, LIPID #### [facility] [address] [place] [address] Dr. Bebeto Alvarado ALT [Catalytic activity/Vol] 38 U/L Normal 14-59 [facility] Comment on above: Performed By: #### C MP, LIPID #### [facility] [address] [place] [address] Dr. Bebeto Alvarado Anion gap [Moles/Vol] 12.1 mmol/L Normal [facility] Comment on above: Performed By: #### C MP, LIPID #### [facility] [address] [place] [address] Dr. Bebeto Alvarado AST [Catalytic activity/Vol] 26 U/L Normal 15-37 [facility] Comment on above: Performed By: #### C MP, LIPID #### [facility] [address] [place] [address] Dr. Bebeto Alvarado Bilirubin [Mass/Vol] 0.3 mg/dL Normal 0.2-1.0 [facility] Comment on above: Performed By: #### C MP, LIPID #### [facility] [address] [place] [address] Dr. Bebeto Alvarado Calcium [Mass/Vol] 9.3 mg/dL Normal 8.5-10.1 [facility] Comment on above: Performed By: #### C MP, LIPID #### [facility] [address] [place] [address] Dr. Bebeto Alvarado Chloride [Moles/Vol] 107 mmol/L Normal 98-107 [facility] Comment on above: Performed By: #### C MP, LIPID #### [facility] [address] [place] [address] Dr. Bebeto Alvarado CO2 [Moles/Vol] 27.9 mmol/L Normal 21.0-32.0 [facility] Comment on above: Performed By: #### C MP, LIPID #### [facility] [address] [place] [address] Dr. Bebeto Alvarado Creatinine [Mass/Vol] 0.95 mg/dL Normal 0.55-1.02 [facility] Comment on above: Performed By: #### C MP, LIPID #### [facility] [address] [place] [address] Dr. Bebeto Alvarado EGFR-AF LATVIAN >60 Normal >=60 [facility] Comment on above: Performed By: #### C MP, LIPID #### [facility] [address] [place] [address] Dr. Bebeto Alvarado EGFR-NON AF LATVIAN 60 mL/min/1.73m2 Normal >=60 [facility] Comment on above: Performed By: #### C MP, LIPID #### [facility] [address] [place] [address] Dr. Bebeto Alvarado Globulin (S) [Mass/Vol] 3.9 g/dL Normal [facility] Comment on above: Performed By: #### C MP, LIPID #### [facility] [address] [place] [address] Dr. Bebeto Alvarado Glucose [Mass/Vol] 108 mg/dL Critically high 74-106 [facility] Comment on above: Performed By: #### C MP, LIPID #### [facility] [address] [place] [address] Dr. Bebeto Alvarado Potassium [Moles/Vol] 4.0 mmol/L Normal 3.5-5.1 [facility] Comment on above: Performed By: #### C MP, LIPID #### [facility] [address] [place] [address] Dr. Bebeto Alvarado Protein [Mass/Vol] 7.6 g/dL Normal 6.4-8.2 [facility] Comment on above: Performed By: #### C MP, LIPID #### [facility] [address] [place] [address] Dr. Bebeto Alvarado Sodium [Moles/Vol] 143 mmol/L Normal 136-145 [facility] Comment on above: Performed By: #### C MP, LIPID #### [facility] [address] [place] [address] Dr. Bebeto Alvarado Urea nitrogen [Mass/Vol] 15.0 mg/dL Normal 7.0-18.0 [facility] Comment on above: Performed By: #### C MP, LIPID #### [facility] [address] [place] [address] Dr. Bebeto Alvarado Urea nitrogen/Creatinine [Mass ratio] 15.8 mg/mg Normal [facility] [facility] Comment on above: Performed By: #### C MP, LIPID #### [facility] [address] [place] [address] Dr. Bebeto Alvarado UA RANDOM W/MICROSCOPICon BACTERIA NONE SEEN Normal NONE SEEN [facility] Comment on above: Performed By: #### A 1C #### [facility] [address] [place] [address] Dr. Bebeto Alvarado Bilirubin Ql (U) Negative Normal NEGATIVE [facility] Comment on above: Performed By: #### A 1C #### [facility] [address] [place] [address] Dr. Bebeto Alvarado CAST NONE SEEN Normal NONE SEEN [facility] Comment on above: Performed By: #### A 1C #### [facility] [address] [place] [address] Dr. Bebeto Alvarado Clarity (U) CLEAR Normal CLEAR [facility] Comment on above: Performed By: #### A 1C #### [facility] [address] [place] [address] Dr. Bebeto Alvarado Color (U) YELLOW Normal YELLOW [facility] Comment on above: Performed By: #### A 1C #### [facility] [address] [place] [address] Dr. Bebeto Alvarado Crystals LM Nom (Urine sed) NONE SEEN Normal NONE SEEN [facility] Comment on above: Performed By: #### A 1C #### [facility] [address] [place] [address] Dr. Bebeto Alvarado Epithelial cells LM Ql (Urine sed) NONE SEEN Normal NONE SEEN /RARE [facility] Comment on above: Performed By: #### A 1C #### [facility] [address] [place] [address] Dr. Bebeto Alvarado Glucose Ql (U) Negative Normal NEGATIVE The [facility] Comment on above: Performed By: #### A 1C #### [facility] [address] [place] [address] Dr. Bebeto Alvarado Hemoglobin Ql (U) Negative Normal NEGATIVE The [facility] Comment on above: Performed By: #### A 1C #### [facility] [address] [place] [address] Dr. Bebeto Alvarado Ketones Ql (U) Negative Normal NEGATIVE [facility] Comment on above: Performed By: #### A 1C #### [facility] [address] [place] [address] Dr. Bebeto Alvarado LEUKOCYTES Negative Normal NEGATIVE [facility] Comment on above: Performed By: #### A 1C #### [facility] [address] [place] [address] Dr. Bebeto Alvarado MUCOUS NONE SEEN Normal NONE SEEN [facility] Comment on above: Performed By: #### A 1C #### [facility] [address] [place] [address] Dr. Bebeto Alvarado Nitrite Ql (U) Negative Normal NEGATIVE [facility] Comment on above: Performed By: #### A 1C #### [facility] [address] [place] [address] Dr. Bebeto Alvarado pH (U) 5.5 [pH] Normal 5-9 [facility] Comment on above: Performed By: #### A 1C #### [facility] [address] [place] [address] Dr. Bebeto Alvarado RBC NONE SEEN Abnormal 0-2 [facility] Comment on above: Performed By: #### A 1C #### [facility] [address] [place] [address] Dr. Bebeto Alvarado SPEC GRAVITY 1.030 Abnormal 1.005-<=1.02 5 [facility] Comment on above: Performed By: #### A 1C #### [facility] [address] [place] [address] Dr. Bebeto Alvarado UA PROTEIN Negative Normal NEGATIVE/ TRACE [facility] Comment on above: Performed By: #### A 1C #### [facility] [address] [place] [address] Dr. Bebeto Alvarado Urobilinogen Qn (U) 0.2 {Katerin'U}/dL Normal 0.2 - 1. 0 [facility] Comment on above: Performed By: #### A 1C #### [facility] [address] [place] [address] Dr. Bebeto Alvarado WBC NONE SEEN Normal NONE SEEN [facility] Comment on above: Performed By: #### A 1C #### [facility] [address] [place] [address] Dr. Bebeto Alvarado VITAMIN B12on 07-25-2022 Cobalamin (Vitamin B12) [Mass/Vol] 1684.0 pg/mL Critically high 193.0-986.0 [facility] Comment on above: Performed By: #### V ITB12, IRON #### [facility] [address] [address] [address] Bebeto Alvarado PROF CHEM 8 (BAS METB)on Anion gap [Moles/Vol] 12.2 mmol/L Normal Th [facility] Comment on above: Performed By: #### B MP #### [facility] [address] [address] [address] Bebeto Alvarado Calcium [Mass/Vol] 8.9 mg/dL Normal 8.5-10.1 The [facility] Comment on above: Performed By: #### B MP #### [facility] [address] [address] [address] Bebeto Alvarado Chloride [Moles/Vol] 105 mmol/L Normal 98-107 [facility] Comment on above: Performed By: #### B MP #### [facility] [address] [address] [address] Bebeto Alvarado CO2 [Moles/Vol] 29.6 mmol/L Normal 21.0-32.0 [facility] Comment on above: Performed By: #### B MP #### [facility] [address] [place] [address] Dr. Bebeto Alvarado Creatinine [Mass/Vol] 0.95 mg/dL Normal 0.55-1.02 [facility] Comment on above: Performed By: #### B MP #### [facility] [address] [address] [address] Bebeto Alvarado EGFR-AF LATVIAN >60 Normal >=60 [facility] Comment on above: Performed By: #### B MP #### [facility] [address] [address] [address] Bebeto Alvarado EGFR-NON AF LATVIAN 60 mL/min/1.73m2 Normal >=60 [facility] Comment on above: Performed By: #### B MP #### [facility] [address] [address] [address] Bebeto Alvarado Glucose [Mass/Vol] 101 mg/dL Normal 74-106 The [facility] Comment on above: Performed By: #### B MP #### [facility] [address] [address] [address] Bebeto Alvarado Potassium [Moles/Vol] 3.8 mmol/L Normal 3.5-5.1 [facility] Comment on above: Performed By: #### B MP #### [facility] [address] [address] [address] Bebeto Alvarado Sodium [Moles/Vol] 143 mmol/L Normal 136-145 [facility] Comment on above: Performed By: #### B MP #### [facility] [address] [address] [address] Bebeto Alvarado Urea nitrogen [Mass/Vol] 16.0 mg/dL Normal 7.0-18.0 [facility] Comment on above: Performed By: #### B MP #### [facility] [address] [place] [address] Dr. Bebeto Alvarado Urea nitrogen/Creatinine [Mass ratio] 16.8 mg/mg Normal [facility] Comment on above: Performed By: #### B MP #### [facility] [address] [place] [address] Dr. Bebeto Alvarado CBC AUTO DIFFon 11-21-2021 BASO # 0.1 103/ul Normal 0.0-0.1 [facility] Comment on above: Performed By: #### A 1C #### [facility] [address] [place] [address] Dr. Bebeto Alvarado Basophils/100 WBC (Bld) 1.0 % Normal 0.2-2.0 [facility] Comment on above: Performed By: #### A 1C #### [facility] [address] [place] [address] Dr. Bebeto Alvarado EO # 0.2 103/ul Normal 0.0-0.7 [facility] Comment on above: Performed By: #### A 1C #### [facility] [address] [place] [address] Dr. Bebeto Alvarado Eosinophils/100 WBC (Bld) 3.3 % Normal 0.9-7.0 [facility] Comment on above: Performed By: #### A 1C #### [facility] [address] [place] [address] Dr. Bebeto Alvarado Erythrocyte distribution width (RBC) [Ratio] 13.8 % Normal 11.0-15.0 [facility] Comment on above: Performed By: #### A 1C #### [facility] [address] [place] [address] Dr. Bebeto Alvarado Hematocrit (Bld) [Volume fraction] 38.8 % Normal 36.0-48.0 [facility] Comment on above: Performed By: #### A 1C #### [facility] [address] [place] [address] Dr. Bebeto Alvarado Hemoglobin (Bld) [Mass/Vol] 12.5 g/dL Normal 12.0-16.0 [facility] Comment on above: Performed By: #### A 1C #### [facility] [address] [place] [address] Dr. Bebeto Alvarado IG # 0.02 10e3/ul Normal 0.00-0.03 [facility] Comment on above: Performed By: #### A 1C #### [facility] [address] [place] [address] Dr. Bebeto Alvarado IG % 0.3 % Normal 0.0-0.5 [facility] Comment on above: Performed By: #### A 1C #### [facility] [address] [place] [address] Dr. Bebeto Alvarado LYMPH # 1.9 103/ul Normal 1.2-3.8 [facility] Comment on above: Performed By: #### A 1C #### [facility] [address] [place] [address] Dr. Bebeto Alvarado Lymphocytes/100 WBC (Bld) 29.6 % Normal 20.5-60.0 [facility] Comment on above: Performed By: #### A 1C #### [facility] [address] [place] [address] Dr. Bebeto Alvarado MANUAL DIFF REQ NO Normal [facility] Comment on above: Performed By: #### A 1C #### [facility] [address] [place] [address] Dr. Bebeto Alvarado MCH (RBC) [Entitic mass] 28.0 pg Normal 26.7-34.0 [facility] Comment on above: Performed By: #### A 1C #### [facility] [address] [place] [address] Dr. Bebeto Alvarado MCHC (RBC) [Mass/Vol] 32.2 g/dL Normal 29.9-35.2 [facility] Comment on above: Performed By: #### A 1C #### [facility] [address] [place] [address] Dr. Bebeto Alvarado MCV (RBC) [Entitic vol] 86.8 fL Normal 81.0-99.0 [facility] Comment on above: Performed By: #### A 1C #### [facility] [address] [place] [address] Dr. Bebeto Alvarado MONO # 0.4 103/ul Normal 0.3-0.8 [facility] Comment on above: Performed By: #### A 1C #### [facility] [address] [place] [address] Dr. Bebeto Alvarado Monocytes/100 WBC (Bld) 5.7 % Normal 1.7-12.0 [facility] Comment on above: Performed By: #### A 1C #### [facility] [address] [place] [address] Dr. Bebeto Alvarado NEUT # 3.8 103/ul Normal 1.4-6.5 [facility] Comment on above: Performed By: #### A 1C #### [facility] [address] [place] [address] Dr. Bebeto Alvarado Neutrophils/100 WBC (Bld) 60.1 % Normal 43.0-75.0 [facility] Comment on above: Performed By: #### A 1C #### [facility] [address] [place] [address] Dr. Bebeto Alvarado Platelet mean volume (Bld) [Entitic vol] 11.0 fL Normal 9.5-13.5 [facility] Comment on above: Performed By: #### A 1C #### [facility] [address] [address] [address] Bebeto Alvarado PLT 264 103/ul Normal 150-450 [facility] Comment on above: Performed By: #### A 1C #### [facility] [address] [address] [address] Bebeto Alvarado RBC 4.47 106/ul Normal 4.20-5.40 [facility] Comment on above: Performed By: #### A 1C #### [facility] [address] [address] [address] Bebeto Alvarado WBC 6.3 103/ul Normal 4.0-11.0 [facility] Comment on above: Performed By: #### A 1C #### [facility] [address] [address] [address] Bebeto Alvarado GLYCOHEMOGLOBIN A1Con 2021 ADA RECOMMENDATION SEE BELOW Normal [facility] Comment on above: Result Comment: ADA RECOMMENDED LIMIT 4.0 - 6.0 ADA THERAPEUTIC TARGET < 7.0 ACTION SUGGESTED > 7.0 Performed By: #### A 1C #### [facility] [address] [address] [address] Bebeto Alvarado Glucose [Mass/Vol] 105 mg/dL Normal [facility] Comment on above: Performed By: #### A 1C #### [facility] [address] [address] [address] Bebeto Alvarado HbA1c (Bld) [Mass fraction] 5.3 % Normal 4.5-6.2 [facility] Comment on above: Performed By: #### A 1C #### [facility] [address] [address] [address] Bebeto Alvarado IRONon 11-21-2021 Iron [Mass/Vol] 59.0 ug/dL Normal 50.0-170.0 [facility] Comment on above: Performed By: #### A 1C #### [facility] [address] [address] [address] Bebeto Alvarado LIPID PROFILEon 11-21-2021 CHOL-HDL RATIO NORM SEE BELOW Normal [facility] Comment on above: Result Comment: 3.3 - 4.4 LOW RISK 4.4 - 7.1 AVERAGE RISK 7.1 - 11.0 MODERATE RISK >11.0 HIGH RISK Performed By: #### C MP, LIPID #### [facility] [address] [address] [address] Bebeto Alvardao Cholesterol [Mass/Vol] 139 mg/dL Normal <=200 [facility] Comment on above: Performed By: #### C MP, LIPID #### [facility] [address] [address] [address] Bebeto Alvarado Cholesterol in HDL [Mass/Vol] 35 mg/dL Critically low 40-60 [facility] Comment on above: Performed By: #### C MP, LIPID #### [facility] [address] [address] [address] Bebeto Alvarado Cholesterol in LDL [Mass/Vol] 69.6 mg/dL Normal [facility] Comment on above: Performed By: #### C MP, LIPID #### [facility] [address] [address] [address] Bebeto Alvarado Cholesterol.total/Chol esterol in HDL [Mass ratio] 4.0 {ratio} Normal [facility] Comment on above: Performed By: #### C MP, LIPID #### [facility] [address] [address] [address] Bebeto Alvarado HDL NORMAL > or = 60 mg/dl - LO W CARDIOVASCULAR RISK <40 mg/dl - HIGH CARDIOVASCULAR RISK Normal [facility] Comment on above: Performed By: #### C MP, LIPID #### [facility] [address] [address] [address] Bebeto Alvarado LDL CALC NORMAL SEE BELOW Normal [facility] Comment on above: Result Comment: <100 mg/dl OPTIMAL 100 - 129 mg/dl NEAR OR ABOVE OPTIMAL 130 - 159 mg/dl BORDERLINE HIGH 160 - 189 mg/dl HIGH >190 mg/dl VERY HIGH Performed By: #### C MP, LIPID #### [facility] [address] [address] [address] Bebeto Alvarado Triglyceride [Mass/Vol] 172 mg/dL Critically high <=150 [facility] Comment on above: Performed By: #### C MP, LIPID #### [facility] [address] [address] [address] Bebeto Alvarado VLDL CALC 34.4 mg/dL Normal [facility] Comment on above: Performed By: #### C MP, LIPID #### [facility] [address] [place] [address] Dr. Bebeto Alvarado PROF 14(COMP METB)on 022 Albumin [Mass/Vol] 3.8 g/dL Normal 3.4-5.0 [facility] Comment on above: Performed By: #### C MP, LIPID #### [facility] [address] [place] [address] Dr. Bebeto Alvarado Albumin/Globulin [Mass ratio] 1.1 {ratio} Normal [facility] Comment on above: Performed By: #### C MP, LIPID #### [facility] [address] [place] [address] Dr. Bebeto Alvarado ALP [Catalytic activity/Vol] 96 U/L Normal 46-116 [facility] Comment on above: Performed By: #### C MP, LIPID #### [facility] [address] [place] [address] Dr. Bebeto Alvarado ALT [Catalytic activity/Vol] 25 U/L Normal 14-59 [facility] Comment on above: Performed By: #### C MP, LIPID #### [facility] [address] [place] [address] Dr. Bebeto Alvarado Anion gap [Moles/Vol] 11.8 mmol/L Normal [facility] Comment on above: Performed By: #### C MP, LIPID #### [facility] [address] [place] [address] Dr. Bebeto Alvarado AST [Catalytic activity/Vol] 20 U/L Normal 15-37 [facility] Comment on above: Performed By: #### C MP, LIPID #### [facility] [address] [place] [address] Dr. Bebeto Alvarado Bilirubin [Mass/Vol] 0.4 mg/dL Normal 0.2-1.0 [facility] Comment on above: Performed By: #### C MP, LIPID #### [facility] [address] [address] [address] Bebeto Alvarado Calcium [Mass/Vol] 8.8 mg/dL Normal 8.5-10.1 [facility] Comment on above: Performed By: #### C MP, LIPID #### [facility] [address] [address] [address] Bebeto Alvarado Chloride [Moles/Vol] 106 mmol/L Normal 98-107 [facility] Comment on above: Performed By: #### C MP, LIPID #### [facility] [address] [address] [address] Bebeto Alvarado CO2 [Moles/Vol] 27.0 mmol/L Normal 21.0-32.0 [facility] Comment on above: Performed By: #### C MP, LIPID #### [facility] [address] [address] [address] Bebeto Alvarado Creatinine [Mass/Vol] 0.97 mg/dL Normal 0.55-1.02 [facility] Comment on above: Performed By: #### C MP, LIPID #### [facility] [address] [place] [address] Dr. Bebeto Alvarado EGFR-AF LATVIAN >60 Normal >=60 [facility] Comment on above: Performed By: #### C MP, LIPID #### [facility] [address] [address] [address] Bebeto Alvarado EGFR-NON AF LATVIAN 59 mL/min/1.73m2 Critically low >=60 [facility] Comment on above: Performed By: #### C MP, LIPID #### [facility] [address] [address] [address] Bebeto Alvarado Globulin (S) [Mass/Vol] 3.4 g/dL Normal [facility] Comment on above: Performed By: #### C MP, LIPID #### [facility] [address] [address] [address] Bebeto Alvarado Glucose [Mass/Vol] 103 mg/dL Normal 74-106 [facility] Comment on above: Performed By: #### C MP, LIPID #### [facility] [address] [place] [address] Dr. Bebeto Alvarado Potassium [Moles/Vol] 3.8 mmol/L Normal 3.5-5.1 [facility] Comment on above: Performed By: #### C MP, LIPID #### [facility] [address] [place] [address] Dr. Bebeto Alvarado Protein [Mass/Vol] 7.2 g/dL Normal 6.4-8.2 [facility] Comment on above: Performed By: #### C MP, LIPID #### [facility] [address] [place] [address] Dr. Bebeto Alvarado Sodium [Moles/Vol] 141 mmol/L Normal 136-145 [facility] Comment on above: Performed By: #### C MP, LIPID #### [facility] [address] [place] [address] Dr. Bebeto Alvarado Urea nitrogen [Mass/Vol] 11.0 mg/dL Normal 7.0-18.0 [facility] Comment on above: Performed By: #### C MP, LIPID #### [facility] [address] [place] [address] Dr. Bebeto Alvarado Urea nitrogen/Creatinine [Mass ratio] 11.3 mg/mg Normal [facility] Comment on above: Performed By: #### C MP, LIPID #### [facility] [address] [place] [address] Dr. Bebeto Alvarado URIC ACID SERUMon 11-21-2021 Urate [Mass/Vol] 7.3 mg/dL Critically high 2.6-6.0 [facility] Comment on above: Performed By: #### A 1C #### [facility] [address] [place] [address] Dr. Bebeto Alvarado VITAMIN B12on 11-21-2021 Cobalamin (Vitamin B12) [Mass/Vol] 2123.0 pg/mL Critically high 193.0-986.0 [facility] Comment on above: Performed By: #### A 1C #### [facility] [address] [place] [address] Dr. Bebeto Alvarado Physician Referralon 022 Physician Referral [phone] [id number] Normal [facility] KNEE RIGHT 1 OR 2 VWSon 0 KNEE RIGHT 1 OR 2 VWS [facility] Department of Radiology [address] [place] [address] ======== Patient Name: MICHELLE BE [...] Electronically signed by:Debra Del Cid. Transcribed by: [email or web address], User Resident: Electronically Signed by: DEBRA DEL CID @ 02/08/2019 11:16 AM Normal [facility] Comment on above: Order Comment: , Mabel ws (X-RAY, KNEE): Radiologic Protocol , Weight Bearing?: N , With or Without Brace/Cast/Collar: With , Views (X-RAY, KNEE): Radiologic Protocol , Weight Bearing?: N , With or Without Brace/Cast/Collar: With , , , Ordering Provider - AHSAN BINGHAM PA-C , KNEE RIGHT 1 OR 2 [facility] KNEE RIGHT 1 OR 2 [facility] Department of Radiology [address] [place] [id number] ======== Patient Name: MICHELLE BE : [...] complications. Electronically signed by:Tomasz Stoll. Transcribed by: [email or web address], User Resident: Electronically Signed by: TOMASZ STOLL @ 12/07/2018 11:14 AM Normal [facility] Comment on above: Order Comment: , Mabel ws (X-RAY, KNEE): Radiologic Protocol , Weight Bearing?: N , With or Without Brace/Cast/Collar: With , Views (X-RAY, KNEE): Radiologic Protocol , Weight Bearing?: N , With or Without Brace/Cast/Collar: With , , , Ordering Provider - AHSAN BINGHAM PA-C , KNEE RIGHT 1 OR 2 VWSon 07-0 3-2019 KNEE RIGHT 1 OR 2 VWS [facility] Department of Radiology [address] [place] [address] ======== Patient Name: MICHELLE BE [...] osteoarthritis Electronically signed by:Anup Ellison. Transcribed by: [email or web address], User Resident: Electronically Signed by: ANUP ELLISON @ 10/06/2018 02:48 PM Normal [facility] Comment on above: Order Comment: , Vie ws (X-RAY, KNEE): Radiologic Protocol , Weight Bearing?: N , With or Without Brace/Cast/Collar: With , Views (X-RAY, KNEE): Radiologic Protocol , Weight Bearing?: N , With or Without Brace/Cast/Collar: With , , , Ordering Provider - AHSAN BINGHAM PA-C , KNEE RIGHT 1 OR 2 [facility] 08-05 KNEE RIGHT 1 OR 2 [facility] Department of Radiology [address] [place] [id number] ======== Patient Name: MICHELLE BE : 1960 Sex: F Age: Race: White Pt. Location: Patient Status: Ordered Date: 08/26/2018 2:30:00 PM Completed Date: 08/26/2018 02:54 PM Requesting Provider: AHSAN BINGHAM Attending Provider: Report Copy To: Signs & Symptoms: S82.001A Unsp fracture of right patella, init for clos fx I10 History: [employer] Comments: , , , Ordering Provider - AHSAN BINGHAM PA-C , Exam: KNEE RIGHT 1 OR 2 S ======== KNEE RIGHT 1 OR 2 [facility] 08/26/2018 2:54 PM EDT SIGNS AND [...] effusion Electronically signed by:Anup Ellison. Transcribed by: [email or web address], User Resident: Electronically Signed by: ANUP ELLISON @ 08/26/2018 04:56 PM Normal [facility] Comment on above: Order Comment: , Vie ws (X-RAY, KNEE): Radiologic Protocol , Weight Bearing?: N , With or Without Brace/Cast/Collar: With , Views (X-RAY, KNEE): Radiologic Protocol , Weight Bearing?: N , With or Without Brace/Cast/Collar: With , , , Ordering Provider - AHSAN BINGHAM PA-C , KNEE RIGHT 1 OR 2 [facility] 07-06 KNEE RIGHT 1 OR 2 [facility] Department of Radiology [address] [place] [id number] ======== Patient Name: MICHELLE BE : 1960 Sex: F Age: Race: White Pt. Location: 84 Patient Status: Ordered Date: 07/29/2018 2:10:00 PM Completed Date: 07/29/2018 02:12 PM Requesting Provider: AHSAN BINGHAM Attending Provider: Report Copy To: Signs & Symptoms: S82.001A Unsp fracture of right patella, init for clos fx I10 History: [employer] Comments: , , , Ordering Provider - [...] compartment Electronically signed by:Anup Ellison. Transcribed by: [email or web address], User Resident: Electronically Signed by: ANUP ELLISON @ 07/29/2018 03:41 PM Normal [facility] Comment on above: Order Comment: , Vie ws (X-RAY, KNEE): Radiologic Protocol , Weight Bearing?: N , With or Without Brace/Cast/Collar: With , Views (X-RAY, KNEE): Radiologic Protocol , Weight Bearing?: N , With or Without Brace/Cast/Collar: With , , , Ordering Provider - AHSAN BINGHAM PA-C , KNEE RIGHT 3 [facility] 9 KNEE RIGHT 3 [facility] Department of Radiology [address] [place] [id number] ======== Patient Name: MICHELLE BE : 1960 Sex: F Age: Race: White Pt. Location: Patient Status: Ordered Date: 07/15/2018 8:45:00 AM Completed Date: 07/15/2018 08:47 AM Requesting Provider: AHSAN BINGHAM Attending Provider: Report Copy To: Signs & Symptoms: S82.001A Unsp fracture of right patella, init for clos fx I10 History: [employer] Comments: , , , Ordering Provider - AHSAN BINGHAM PA-C , Exam: KNEE RIGHT 3 [facility] ======== KNEE RIGHT 3 VWS 07/15/2018 [...] knee Electronically signed by:Anup Ellison. Transcribed by: [email or web address], User Resident: Electronically Signed by: NAUP ELLISON @ 07/15/2018 03:31 PM Normal [facility] Comment on above: Order Comment: , Vie ws (X-RAY, KNEE): Radiologic Protocol , Weight Bearing?: N , With or Without Brace/Cast/Collar: With , Views (X-RAY, KNEE): Radiologic Protocol , Weight Bearing?: N , With or Without Brace/Cast/Collar: With , , , Ordering Provider - AHSAN BINGHAM PA-C , Operative Reporton 9 Operative Report MR#: [id number] [facility] Pt. Name: Michelle Be Room #: [...] Duarte MD Date Trans: 07/03/2018 04:28 Monse/terry [id number] Normal [facility] *ANAEROBIC CULTUREon 019 *ANAEROBIC CULTURE Clinical Report: (D) Specimen/Source: SWAB/RT KNEE Collected: 07/02/2018 13:53 Status: Final Last Updated: 07/07/2018 08:02 CULT RES (Final) No Anaerobes Isolated 5 Days Normal [facility] Comment on above: Performed By: #### 3 0312 #### [address] *WOUND CULTUREon 07-02-2018 *WOUND CULTURE Clinical Report: (D) Specimen/Source: WOUND/INTRAOP SPEC Collected: 07/02/2018 13:53 Status: Final Last Updated: 07/07/2018 10:13 (1) #1 RT KNEE GRAM (Final) Rare Polys No Bacteria Seen CULT RES (Final) No Growth Day 5 Normal [facility] Comment on above: Order Comment: #1 RT KNEE Performed By: #### 3 0343 #### [address] KNEE RIGHT 1 OR 2 [facility] 06-05 KNEE RIGHT 1 OR 2 [facility] Department of Radiology [address] [place] [address] ======== Patient Name: MICHELLE BE [...] Electronically signed by:Debra Del Cid. Transcribed by: [email or web address], User Resident: Electronically Signed by: DEBRA DEL CID @ 07/02/2018 02:03 PM Normal [facility] Comment on above: Order Comment: ORIF VS PERCUTANEOUS FIXATION RIGHT PATELLA POC GLUCOSE LABon 07-02-2018 Glucose [Mass/Vol] 108 mg/dL High 70-100 [facility] Comment on above: Performed By: #### 8 5499 #### [place] [address] [place] [address], [facility] APTTon 06-30-2018 aPTT Coag (Bld) [Time] 30.6 s Normal 25.0-35.0 [facility] Comment on above: Result Comment: ALL [...] THIS PURPOSE. Performed By: #### 5 6101, [address] #### [facility] [address] [facility] [address] BASIC METABOLIC PANELon 06-05 Calcium [Mass/Vol] 9.7 mg/dL Normal 8.6-10.3 [facility] Comment on above: Performed By: #### 0 0071 #### [facility] [address] [facility] [place] [place] [address], [facility] Chloride [Moles/Vol] 102 mmol/L Normal 98-107 [facility] Comment on above: Performed By: #### 0 0071 #### [facility] [address] [facility] [place] [address], [facility] CO2 [Moles/Vol] 28 mmol/L Normal 21-31 [facility] Comment on above: Performed By: #### 0 0071 #### [facility] [address] [facility] [place] [address], [facility] Creatinine [Mass/Vol] 1.20 mg/dL Normal 0.60-1.20 [facility] Comment on above: Performed By: #### 0 0071 #### [facility] [address] [facility] [place] [place] [address], [facility] GFR/1.73 sq M predicted among blacks MDRD (S/P/Bld) [Vol rate/Area] 56 ml/min/1.73sq m Abnormal >60 [facility] Comment on above: Performed By: #### 0 0071 #### [facility] [address] GFR/1.73 sq M predicted among non-blacks MDRD (S/P/Bld) [Vol rate/Area] 47 ml/min/1.73sq m Abnormal >60 [facility] Comment on above: Performed By: #### 0 0071 #### [facility] [address] Glucose [Mass/Vol] 97 mg/dL Normal 70-100 [facility] Comment on above: Performed By: #### 0 0071 #### [facility] [address] Potassium [Moles/Vol] 4.1 mmol/L Normal 3.5-5.1 [facility] Comment on above: Performed By: #### 0 0071 #### [facility] [address] Sodium [Moles/Vol] 137 mmol/L Normal 136-145 [facility] Comment on above: Performed By: #### 0 0071 #### [facility] [address] Urea nitrogen [Mass/Vol] 19 mg/dL Normal 7-25 [facility] Comment on above: Performed By: #### 0 0071 #### [facility] [address] CBC W/DIFFon 06-30-2018 ABS BASOPHILS 0.1 10*3/uL Normal 0.0-0.2 [facility] Comment on above: Performed By: #### 5 102 #### [facility] [address] ABS IMM GRANS 0.0 10*3/uL Normal 0.0-0.2 [facility] Comment on above: Performed By: #### 5 0103 #### [facility] [address] [place] [address], [facility] ABS NEUTROPHILS 6.4 10*3/uL Normal 1.6-7.6 [facility] Comment on above: Performed By: #### 5 0103 #### [facility] [address] [place] [address], [facility] Basophils/100 WBC (Bld) 0.7 % Normal 0.0-1.0 [facility] Comment on above: Performed By: #### 3 #### [facility] [address] [facility] [place] [address], [facility] Eosinophils (Bld) [#/Vol] 0.2 10*3/uL Normal 0.0-0.5 [facility] Comment on above: Performed By: #### 102 #### [facility] [address] [facility] [place] [place] [address], [facility] Eosinophils/100 WBC (Bld) 1.5 % Normal 0.0-6.0 [facility] Comment on above: Performed By: #### 102 #### [facility] [address] [facility] [address] Erythrocyte distribution width (RBC) [Ratio] 14.4 % Normal 11.5-15.0 [facility] Comment on above: Performed By: #### 3 #### [facility] [address] [facility] [place] [place] [address], [facility] Hematocrit (Bld) [Volume fraction] 40.6 % Normal 36.0-45.0 [facility] Comment on above: Performed By: #### 5 3 #### [facility] [address] [facility] [place] [address], [facility] Hemoglobin (Bld) [Mass/Vol] 13.3 g/dL Normal 12.0-15.0 [facility] Comment on above: Performed By: #### 3 #### [facility] [address] [place] [address], [facility] IMMATURE GRANS 0.4 % Normal 0.0-1.0 [facility] Comment on above: Performed By: #### 5 0103 #### [facility] [address] [facility] [place] [place] [address], [facility] Lymphocytes (Bld) [#/Vol] 2.6 10*3/uL Normal 1.2-4.0 [facility] Comment on above: Performed By: #### 5 0103 #### [facility] [address] [facility] [address], [facility] Lymphocytes/100 WBC (Bld) 26.5 % Normal 20.0-45.0 [facility] Comment on above: Performed By: #### 5 0103 #### [facility] [address] [facility] [place] [address], [facility] MCH (RBC) [Entitic mass] 27.4 pg Normal 27.0-33.0 [facility] Comment on above: Performed By: #### 5 3 #### [facility] [address] [place] [address], [facility] MCHC (RBC) [Mass/Vol] 32.8 g/dL Normal 32.0-35.0 [facility] Comment on above: Performed By: #### 5 0103 #### [facility] [address] [facility] [place] [address], [facility] MCV (RBC) [Entitic vol] 83.5 fL Normal 82.0-98.0 [facility] Comment on above: Performed By: #### 5 0103 #### [facility] [address] [place] [address], [facility] Monocytes (Bld) [#/Vol] 0.5 10*3/uL Normal 0.1-1.0 [facility] Comment on above: Performed By: #### 5 3 #### [facility] [address] [facility] [place] [address], [facility] MONOS 5.0 % Normal 5.0-12.0 [facility] Comment on above: Performed By: #### 5 0103 #### [facility] [address] [place] [address], [facility] Neutrophils/100 WBC (Bld) 65.9 % Normal 40.0-72.0 [facility] Comment on above: Performed By: #### 5 0103 #### [facility] [address] [facility] [place] [address], [facility] Nucleated RBC/100 WBC (Bld) [Ratio] 0 % Normal 0-0 [facility] Comment on above: Performed By: #### 5 0103 #### [facility] [address] [facility] [place] [address], [facility] PLAT CNT 290 10*3/uL Normal 150-400 [facility] Comment on above: Performed By: #### 5 0103 #### [facility] [address] [facility] [place] [address], [facility] RBC (Bld) [#/Vol] 4.86 10*6/uL Normal 3.80-5.00 [facility] Comment on above: Performed By: #### 5 0103 #### [facility] [address] [place] [address], [facility] WBC (Bld) [#/Vol] 9.68 10*3/uL Normal 4.00-10.60 [facility] Comment on above: Performed By: #### 5 0103 #### [facility] [address] [place] [address], [facility] KNEE RIGHT 1 OR 2 VWSon 06-05 KNEE RIGHT 1 OR 2 VWS [facility] Department of Radiology [address] [place] [id number] ======== Patient Name: MICHELLE BE : 1960 Sex: F Age: Race: White Pt. 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 Transcribed by: [email or web address], User Resident: Electronically Signed by: DEBRA DEL CID @ 06/30/2018 11:52 AM Normal [facility] Comment on above: [...] (PPP) [Relative time] 0.98 {INR} Normal 0.91-1.16 [facility] Comment on above: Result Comment: ACCC [...] RANGE. CHEST 1995;108:[id number]. Performed By: #### 5 3896, [address]861 #### [facility] [address] [facility] [place] [address], [facility] PT Coag (PPP) [Time] 13.0 s Normal 12.3-14.8 [facility] Comment on above: Result Comment: ALL RESULTS MUST BE INTERPRETED WITH RESPECT TO BLOOD DRAWING ARTIFACT OR DILUTION ERROR OF ANTICOAGULANT AT THE TIME OF SAMPLING. Performed By: #### 5 6101, [address] #### [facility] [address] [facility] [place] [address], [facility] KNEE RIGHT 3 Son 9 KNEE RIGHT 3 S [facility] Department of Radiology [address] [place] [address] ======== Patient Name: MICHELLE BE : 1960 Sex: F Age: Race: White Pt. Location: Patient Status: O Ordered Date: 06/15/2018 1:35:00 PM Completed Date: 06/15/2018 01:34 PM Requesting Provider: AMPARO ZHANG Attending Provider: AMPARO ZHANG Report Copy To: ADELAIDA CARRION Signs & Symptoms: M17.11 Unilateral primary osteoarthritis, right knee I10 History: [employer] Comments: , Weight Bearing?: Y , Weight [...] effusion Electronically signed by:Anup Ellison. Transcribed by: [email or web address], User Resident: Electronically Signed by: ANUP ELLISON @ 06/15/2018 03:50 PM Normal [facility] Comment on above: Order Comment: , Isaiah ght Bearing?: Y , Weight Bearing?: Y , , , Ordering Mariela ZHANG PA-C , Vital Signs Date Time Vital Sign Value Performing Clinician Facility 08-16-2024 11:25-0400 Body mass index (BMI) [Ratio] 48.23 kg/m2 Adelaida 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: [facility] 08-16-2024 11:25-040 Body temperature 98.49 [degF] Adelaida 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: [facility] 08-16-2024 11:25-0400 Body weight 127.46 kg Adelaida 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: [facility] 08-16-2024 11:25-0400 Diastolic blood pressure 82 mm[Hg] Adelaida 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: [facility] 08-16-2024 11:25-0400 Heart rate 67 /min Adelaida Aichholz [employer] Work Phone: [facility] 08-16-2024 11:25-0400 Respiratory rate 18 /min Adelaida Aichholz [employer] Work Phone: [facility] 08-16-2024 11:25-0400 SaO2% (BldA) [Mass fraction] 97 % Adelaida Aichholz [employer] Work Phone: [facility] 08-16-2024 11:25-0400 Systolic blood pressure 120 mm[Hg] Adelaida Aichholz [employer] Work Phone: [facility] 07-27-2024 11:16-0400 Body mass index (BMI) [Ratio] 50.67 kg/m2 Adelaida Aichholz [employer] Work Phone: [facility] 07-27-2024 11:16-0400 Body temperature 98.8 [degF] Adelaida Aichholz [employer] Work Phone: [facility] 07-27-2024 11:16-0400 Body weight 133.9 kg Adelaida Aichholz [employer] Work Phone: [facility] 07-27-2024 11:16-0400 Diastolic blood pressure 86 mm[Hg] Adelaida Aichholz [employer] Work Phone: [facility] 07-27-2024 11:16-0400 Heart rate 82 /min Adelaida Aichholz [employer] Work Phone: [facility] 07-27-2024 11:16-0400 Respiratory rate 24 /min Adelaida Aichholz [employer] IN[employer] Work Phone: [facility] 07-27-2024 11:16-0400 SaO2% (BldA) [Mass fraction] 97 % Adelaida Aichholz [employer] IN[employer] Work Phone: [facility] 07-27-2024 11:16-0400 Systolic blood pressure 124 mm[Hg] Adelaida Aichholz [employer] Work Phone: [facility] 07-26-2024 10:48-0400 Body height 162.6 cm Juany Lowe PA Work Phone: [facility] 07-26-2024 10:48-0400 Body mass index (BMI) [Ratio] 50.98 kg/m2 Juany Lowe PA Work Phone: [facility] 07-26-2024 10:48-0400 Body weight 134.72 kg Juany Lowe PA Work Phone: [facility] 07-26-2024 10:48-0400 Diastolic blood pressure 84 mm[Hg] Juany Lowe PA Work Phone: [facility] 07-26-2024 10:48-0400 Systolic blood pressure 126 mm[Hg] Juany Lowe PA Work Phone: [facility] 05-24-2024 08:19-0500 Body height 162.6 cm Juany Lowe PA Work Phone: [facility] 05-24-2024 08:19-0500 Body mass index (BMI) [Ratio] 50.29 kg/m2 Juany Lowe PA Work Phone: [facility] 05-24-2024 08:19-0500 Body weight 132.9 kg Juany Lowe PA Work Phone: [facility] 05-24-2024 08:19-0500 Diastolic blood pressure 72 mm[Hg] Juany Lowe PA Work Phone: [facility] 05-24-2024 08:19-0500 Heart rate 62 /min Juany Lowe PA Work Phone: [facility] 05-24-2024 08:19-0500 Respiratory rate 16 /min Juany Lowe PA Work Phone: [facility] 05-24-2024 08:19-0500 SaO2% (BldA) [Mass fraction] 100 % Juany Lowe PA Work Phone: [facility] 05-24-2024 08:19-0500 Systolic blood pressure 110 mm[Hg] Juany Leggett PA Work Phone: [facility] 05-12-2024 10:04-0500 Body height 162.6 cm Adelaida Hejosue [employer] IN[employer]ER Work Phone: [facility] 05-12-2024 10:04-0500 Body mass index (BMI) [Ratio] 49.16 kg/m2 Adelaida Kelsiez [employer]ER Work Phone: [facility] 05-12-2024 10:04-0500 Body temperature 98.49 [degF] Adelaida Sheyla [employer] IN[employer]ER Work Phone: [facility] 05-12-2024 10:04-0500 Body weight 129.91 kg Adelaida Sheyla [employer] IN[employer]ER Work Phone: [facility] 05-12-2024 10:04-0500 Diastolic blood pressure 78 mm[Hg] Adelaida Kelsiez [employer] IN[employer]ER Work Phone: [facility] 05-12-2024 10:04-0500 Heart rate 80 /min Adelaidamonse Hebostonz [employer]MENT IN[employer]ER Work Phone: [facility] 05-12-2024 10:04-0500 Respiratory rate 20 /min Adelaidamonse Hejosue [employer]ICATION[employer] EQUIPMENT IN[employer]ER Work Phone: [facility] 05-12-2024 10:04-0500 SaO2% (BldA) [Mass fraction] 98 % Adelaida Sheyla [employer] IN[employer]ER Work Phone: [facility] 05-12-2024 10:04-0500 Systolic blood pressure 118 mm[Hg] Adelaida Kelsiez [employer] IN[employer]ER Work Phone: [facility] 03-16-2024 09:53-0500 Body height 162.6 cm Adelaida Sheyla [employer] IN[employer]ER Work Phone: [facility] 03-16-2024 09:53-0500 Body mass index (BMI) [Ratio] 48.41 kg/m2 Adelaida Kelsiez [employer] IN[employer]ER Work Phone: [facility] 03-16-2024 09:53-0500 Body temperature 98.01 [degF] Adelaida 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: [facility] 03-16-2024 09:53-0500 Body weight 127.91 kg Adelaida 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: [facility] 03-16-2024 09:53-0500 Diastolic blood pressure 80 mm[Hg] Adelaida 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: [facility] 03-16-2024 09:53-0500 Heart rate 79 /min Adelaida Iglesiasz [employer] IN[employer]ER Work Phone: [facility] 03-16-2024 09:53-0500 Respiratory rate 18 /min Adelaida 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: [facility] 03-16-2024 09:53-0500 SaO2% (BldA) [Mass fraction] 98 % Adelaida Carroin [employer]MENT INST[employer]ER Work Phone: [facility] 03-16-2024 09:53-0500 Systolic blood pressure 120 mm[Hg] Adelaida 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: [facility] 03-10-2024 15:20-0500 Body height 162.6 cm Rachel Mitchell PA Work Phone: [facility] 03-10-2024 15:20-0500 Body mass index (BMI) [Ratio] 48.41 kg/m2 Rachel Mitchell PA Work Phone: [facility] 03-10-2024 15:20-0500 Body weight 127.91 kg Rachle Mitchell PA Work Phone: [facility] 03-10-2024 15:20-0500 Diastolic blood pressure 68 mm[Hg] Rachel Mitchell PA Work Phone: [facility] 03-10-2024 15:20-0500 Heart rate 74 /min Rachel Mitchell PA Work Phone: [facility] 03-10-2024 15:20-0500 Respiratory rate 16 /min Rachel Mitchell PA Work Phone: [facility] 03-10-2024 15:20-0500 SaO2% (BldA) [Mass fraction] 98 % Rachel Mitchell PA Work Phone: [facility] 03-10-2024 15:20-0500 Systolic blood pressure 102 mm[Hg] Rachel Mitchell PA Work Phone: [facility] 03-01-2024 12:48-0500 Body height 162.6 cm Juany Lowe PA Work Phone: [facility] 03-01-2024 12:48-0500 Body mass index (BMI) [Ratio] 48.92 kg/m2 Juany Lowe PA Work Phone: [facility] 03-01-2024 12:48-0500 Body weight 129.28 kg Juany Lowe PA Work Phone: [facility] 03-01-2024 12:48-0500 Diastolic blood pressure 88 mm[Hg] Juany Lowe PA Work Phone: [facility] 03-01-2024 12:48-0500 Systolic blood pressure 140 mm[Hg] Juany Lowe PA Work Phone: [facility] 02-16-2024 11:18-0500 Body height 162.6 cm Adelaida 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: [facility] 02-16-2024 11:18-0500 Body mass index (BMI) [Ratio] 50.77 kg/m2 Adelaida Sheyla [employer] IN[employer]ER Work Phone: [facility] 02-16-2024 11:18-0500 Body temperature 98.49 [degF] Adelaida 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: [facility] 02-16-2024 11:18-0500 Body weight 134.17 kg Adelaida Sheyla [employer]ICATION[employer] E[employer] INST[employer]ER Work Phone: [facility] 02-16-2024 11:18-0500 Diastolic blood pressure 82 mm[Hg] Adelaida Sheyla [employer]ICATION[employer] E[employer]MENT INST[employer]ER Work Phone: [facility] 02-16-2024 11:18-0500 Heart rate 69 /min Adelaida Aichholz [employer] E[employer] IN[employer]ER Work Phone: [facility] 02-16-2024 11:18-0500 Respiratory rate 20 /min Adelaida Aichholz [employer]ICATION[employer] EQU[employer]MENT INST[employer]ER Work Phone: [facility] 02-16-2024 11:18-0500 SaO2% (BldA) [Mass fraction] 98 % Adelaida Aichholz [employer]ICATION[employer] E[employer] INST[employer]ER Work Phone: [facility] 02-16-2024 11:18-0500 Systolic blood pressure 122 mm[Hg] Adelaida Aichholz [employer]ICATION[employer] E[employer] INST[employer]ER Work Phone: [facility] 01-28-2024 13:46-0400 Body height 162.6 cm Adelaida Aichholz [employer]ICATION[employer] E[employer] INST[employer]ER Work Phone: [facility] 01-28-2024 13:46-0400 Body mass index (BMI) [Ratio] 48.99 kg/m2 Adelaida Aichholz [employer]ICATION[employer] E[employer] INST[employer]ER Work Phone: [facility] 01-28-2024 13:46-0400 Body temperature 98.71 [degF] Adelaida Aichholz [employer]ICATION[employer] EQUIPMENT INST[employer]ER Work Phone: [facility] 01-28-2024 13:46-0400 Body weight 129.46 kg Adelaida Aichholz [employer]ICATION[employer] EQUIP[employer] INSTALLER Work Phone: [facility] 01-28-2024 13:46-0400 Diastolic blood pressure 78 mm[Hg] Adelaida Aichholz [employer]ICATION[employer] EQUIPMENT INSTALLER Work Phone: [facility] 01-28-2024 13:46-0400 Heart rate 81 /min Adelaida Aichholz [employer]ICATION[employer] E[employer] INST[employer]ER Work Phone: [facility] 01-28-2024 13:46-0400 Respiratory rate 18 /min Adelaida Aichholz [employer]ICATION[employer] EQU[employer]MENT INSTALLER Work Phone: [facility] 01-28-2024 13:46-0400 SaO2% (BldA) [Mass fraction] 99 % Adelaida Aichholz [employer]ICATION[employer] EQU[employer]MENT INST[employer]ER Work Phone: [facility] 01-28-2024 13:46-0400 Systolic blood pressure 110 mm[Hg] Adelaida Iglesiasz [employer]ICATION[employer] EQU[employer]MENT INSTALLER Work Phone: [facility] 01-04-2024 09:39-0400 Body height 162.6 cm Adelaida Iglesiasz COMM[employer]ICATION[employer] EQUIPMENT INSTALLER Work Phone: [facility] 01-04-2024 09:39-0400 Body mass index (BMI) [Ratio] 48.75 kg/m2 Adelaidamonse Iglesiasz COMM[employer]ICATION[employer] EQUIPMENT INSTALLER Work Phone: [facility] 01-04-2024 09:39-0400 Body temperature 97.81 [degF] Adelaida Sousakushz [employer]ICATION[employer] EQUIPMENT INSTALLER Work Phone: [facility] 01-04-2024 09:39-0400 Body weight 128.82 kg Adelaida Iglesiasz [employer]ICATION[employer] EQUIPMENT INSTALLER Work Phone: [facility] 01-04-2024 09:39-0400 Diastolic blood pressure 78 mm[Hg] Adelaida Iglesiasz [employer] EQU[employer]MENT INST[employer]ER Work Phone: [facility] 01-04-2024 09:39-0400 Heart rate 67 /min Adelaida Iglesiasz COMMUNICATIONS EQUIPMENT INSTALLER Work Phone: [facility] 01-04-2024 09:39-0400 Respiratory rate 19 /min Adelaidamonse Iglesiasz COMMUNICATIONS EQUIPMENT INSTALLER Work Phone: [facility] 01-04-2024 09:39-0400 SaO2% (BldA) [Mass fraction] 99 % Adelaidamonse Iglesiasz COMMUNICATIONS EQUIPMENT INSTALLER Work Phone: [facility] 01-04-2024 09:39-0400 Systolic blood pressure 116 mm[Hg] Adelaida Merryholz COMMUNICATIONS EQUIPMENT INSTALLER Work Phone: [facility] 12-09-2023 10:14-0400 Body height 162.6 cm Juany Caballero COMMUNICATIONS EQUIPMENT INSTALLER Work Phone: [facility] 12-09-2023 10:14-0400 Body mass index (BMI) [Ratio] 48.92 kg/m2 Juany Escalanter COMMUNICATIONS EQUIPMENT INSTALLER Work Phone: [facility] 12-09-2023 10:14-0400 Body weight 129.28 kg Juany Escalanter COMMUNICATIONS EQUIPMENT INSTALLER Work Phone: [facility] 12-09-2023 10:14-0400 Diastolic blood pressure 78 mm[Hg] Juany Escalanter COMMUNICATIONS EQUIPMENT INSTALLER Work Phone: [facility] 12-09-2023 10:14-0400 SaO2% (BldA) [Mass fraction] 97 % Juany Escalanter COMMUNICATIONS EQUIPMENT INSTALLER Work Phone: [facility] 12-09-2023 10:14-0400 Systolic blood pressure 122 mm[Hg] Juany Escalanter COMMUNICATIONS EQUIPMENT INSTALLER Work Phone: [facility] 12-08-2023 15:24-0400 Body height 162.6 cm Sonam Clevelandnagel COMMUNICATIONS EQUIPMENT INSTALLER Work Phone: [facility] 12-08-2023 15:24-0400 Body mass index (BMI) [Ratio] 48.92 kg/m2 Sonam Clevelandnagel COMMUNICATIONS EQUIPMENT INSTALLER Work Phone: [facility] 12-08-2023 15:24-0400 Body weight 129.28 kg Sonam Clevelandnagel COMMUNICATIONS EQUIPMENT INSTALLER Work Phone: [facility] 12-08-2023 15:24-0400 Diastolic blood pressure 77 mm[Hg] Sonam Windnagel COMMUNICATIONS EQUIPMENT INSTALLER Work Phone: [facility] 12-08-2023 15:24-0400 Heart rate 72 /min Sonam Windnagel COMMUNICATIONS EQUIPMENT INSTALLER Work Phone: [facility] 12-08-2023 15:24-0400 Systolic blood pressure 134 mm[Hg] Sonam Windnagel COMMUNICATIONS EQUIPMENT INSTALLER Work Phone: [facility] 05-18-2023 16:30-0500 Body height 162.6 cm Adelaidamonse 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: [facility] 05-18-2023 16:30-0500 Body mass index (BMI) [Ratio] 47.89 kg/m2 Adelaida Kelsiez COMMUNICATIONS EQUIPMENT INSTALLER Work Phone: [facility] 05-18-2023 16:30-0500 Body temperature 97.3 [degF] Adelaida Aichholz COMMUNICATIONS EQUIPMENT INSTALLER Work Phone: [facility] 05-18-2023 16:30-0500 Body weight 126.55 kg Adelaida Aichholz COMMUNICATIONS EQUIPMENT INSTALLER Work Phone: [facility] 05-18-2023 16:30-0500 Diastolic blood pressure 80 mm[Hg] Adelaida Aichholz COMMUNICATIONS EQUIPMENT INSTALLER Work Phone: [facility] 05-18-2023 16:30-0500 Heart rate 76 /min Adelaida Aichholz COMMUNICATIONS EQUIPMENT INSTALLER Work Phone: [facility] 05-18-2023 16:30-0500 Respiratory rate 19 /min Adelaida Aichholz COMMUNICATIONS EQUIPMENT INSTALLER Work Phone: [facility] 05-18-2023 16:30-0500 SaO2% (BldA) [Mass fraction] 97 % Adelaida Aichholz COMMUNICATIONS EQUIPMENT INSTALLER Work Phone: [facility] 05-18-2023 16:30-0500 Systolic blood pressure 134 mm[Hg] Adelaida Aichholz COMMUNICATIONS EQUIPMENT INSTALLER Work Phone: [facility] 03-23-2023 12:10-0500 Diastolic blood pressure 98 mm[Hg] Adelaida Aichholz Work Phone: [facility] 03-23-2023 12:10-0500 Heart rate 76 /min Adelaida Aichholz Work Phone: [facility] 03-23-2023 12:10-0500 Respiratory rate 18 /min Adelaida Aichholz Work Phone: [facility] 03-23-2023 12:10-0500 SaO2% (BldA) [Mass fraction] 99 % Adelaida Aichholz Work Phone: [facility] 03-23-2023 12:10-0500 Systolic blood pressure 162 mm[Hg] Adelaida Sousaholz Work Phone: [facility] 03-23-2023 10:53-0500 Body height 162.56 cm Adelaida Yinghholz Work Phone: [facility] 03-23-2023 10:53-0500 Body weight 125.64 kg Adelaida Yinghholz Work Phone: [facility] 12-19-2022 14:55-0400 Body height 162.56 cm Rosemary Vernonmond Other [employer] [facility] [employer] Other 12-19-2022 14:55-0400 Body mass index (BMI) [Ratio] 47.85 kg/m2 Rosemary Vernonmond Other [employer] Other 12-19-2022 14:55-0400 Body temperature 97.8 [degF] Rosemary Vernonmond Other [employer] Other 12-19-2022 14:55-0400 Body weight 126.46 kg Rosemary Vernonmond Other [employer] Other 12-19-2022 14:55-0400 Respiratory rate 20 /min Rosemary Vernonmond Other [employer] Other 12-19-2022 14:55-0400 SaO2% (BldA) [Mass fraction] 95 % Rosemary Kirkland Other [employer] Other 11-20-2022 13:12-0400 Body temperature 97.7 [degF] Adelaida Yinghholz Work Phone: [facility] 11-20-2022 13:12-0400 SaO2% (BldA) [Mass fraction] 96 % Adelaida Yinghholz Work Phone: [facility] 11-20-2022 07:44-0400 Diastolic blood pressure 90 mm[Hg] Adelaida Aichholz Work Phone: [facility] 11-20-2022 07:44-0400 Heart rate 103 /min Adelaida Aichholz Work Phone: [facility] 11-20-2022 07:44-0400 Systolic blood pressure 152 mm[Hg] Adelaida Aichholz Work Phone: [facility] 11-19-2022 20:00-0400 Respiratory rate 18 /min Adelaida Aichholz Work Phone: [facility] 11-18-2022 15:18-0400 Body height 162.56 cm Adelaida Aichholz Work Phone: [facility] 11-17-2022 09:00-0400 Body weight 122.92 kg Adelaida Aichholz Work Phone: [facility] Encounters Encounter Date Encounter Type Care Provider Facility Start: 10-04-2024 ambulatory Eduardo Monk Facility:[facility] Start: 09-29-2024 End: 09-29-2024 Clinisync Result Encounter Generic External Data Provider [facility] External Department Unsolicited Start: 09-29-2024 End: 09-29-2024 Clinisync Result Encounter Generic External Data Provider [facility] External Department Unsolicited Start: 09-26-2024 End: 09-26-2024 Clinisync Result Encounter Generic External Data Provider [facility] External Department Unsolicited Start: 09-26-2024 End: 09-26-2024 Clinisync Result Encounter Generic External Data Provider [facility] External Department Unsolicited Start: 09-19-2024 End: 09-19-2024 ambulatory Syeda Mancuso MD Facility:[facility] Start: 08-16-2024 End: 08-16-2024 Bamboo flowsheet Adelaida 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: [facility] Start: 08-16-2024 End: 08-16-2024 Bamboo flowsheet Adelaida 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: [facility] Start: 08-16-2024 End: 08-16-2024 Office outpatient visit 15 minutes Adelaida 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: [facility] Comment on above: Primary hypertension (CMS/HCC) (Primary Dx); Bronchitis; Bilateral lower extremity edema; Morbid (severe) obesity due to excess calories (CMS/HCC); Pre-diabetes; Allergic rhinitis, unspecified seasonality, unspecified trigger; Encounter for screening mammogram for malignant neoplasm of breast; Former cigarette smoker Start: 08-16-2024 End: 08-16-2024 ambulatory ADELAIDA SHEYLA Not Available Start: 08-08-2024 End: 08-08-2024 ambulatory Syeda Mancuso MD Facility:[facility] Start: 07-27-2024 End: 07-27-2024 Bamboo flowsheet Adelaida 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: [facility] Start: 07-27-2024 End: 07-27-2024 Bamboo flowsheet Adelaida 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: [facility] Start: 07-27-2024 End: 07-27-2024 Office outpatient visit 15 minutes Adelaida 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: [facility] Comment on above: Primary hypertension (CMS/HCC) (Primary Dx); Morbid (severe) obesity due to excess calories (CMS/HCC); Essential (primary) hypertension (CMS/HCC); Allergic rhinitis, unspecified; Gastro-esophageal reflux disease without esophagitis; Bilateral lower extremity edema; Bronchitis Start: 07-27-2024 End: 07-27-2024 ambulatory ADELAIDA AICHHOLZ Not Available Start: 07-26-2024 End: 07-26-2024 Bamboo flowsheet Juany Leggett PA [facility] Start: 07-26-2024 End: 07-26-2024 Bamboo flowsheet Juany [...] Start: 06-14-2024 End: 06-14-2024 Refill Adelaida 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: [facility] Comment on above: URI, acute (Primary Dx) Start: 06-07-2024 End: 06-07-2024 Refill Juany Lowe PA Work Phone: [facility] Comment on above: Restless leg Start: 05-24-2024 End: 05-24-2024 Bamboo flowsheet Juany Lowe PA Work Phone: [facility] Start: 05-24-2024 End: 05-24-2024 Bamboo flowsheet Juany Lowe PA Work Phone: [facility] Start: 05-24-2024 End: 05-24-2024 Office outpatient visit 25 minutes Juany Lowe PA Work Phone: [facility] Comment on above: Cerebrovascular acci dent (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 (CMS/HCC) (Primary Dx); OSMANY (obstructive sleep apnea); Metabolic encephalopathy; Restless leg; Degeneration of intervertebral disc of lumbar region with discogenic back pain and lower extremity pain Start: 05-24-2024 End: 05-24-2024 ambulatory JUANY LOWE Not Available Start: 05-23-2024 End: 05-23-2024 ambulatory Syeda Mancuso MD Facility: [facility] Start: 05-12-2024 End: 05-12-2024 Bamboo flowsheet Adelaida Sousarhonda COMMUNICATIONS EQUIPMENT INSTALLER Work Phone: [facility] Start: 05-12-2024 End: 05-12-2024 Bamboo flowsheet Adelaida Sousarhonda COMMUNICATIONS EQUIPMENT INSTALLER Work Phone: [facility] Start: 05-12-2024 End: 05-12-2024 Office outpatient visit 25 minutes Adelaida Yingmarquesrhonda COMMUNICATIONS EQUIPMENT INSTALLER Work Phone: [facility] Comment on above: Primary hypertension (CMS/HCC) [...] edema Start: 05-12-2024 End: 05-12-2024 ambulatory ADELAIDA YINGMarquesRHONDA Not Available Start: 05-09-2024 End: 05-09-2024 ambulatory [facility] Start: 04-12-2024 End: 04-12-2024 Refill Juany REDDY Work Phone: [facility] [address] Comment on above: Transient alteration of awareness (Primary Dx); Restless leg Start: 04-07-2024 End: 04-07-2024 Patient encounter procedure David Foster PhD Work Phone: [facility] Comment on above: Metabolic encephalop athy (Primary Dx); Memory change; Altered mental status, unspecified altered mental status type; Concentration deficit; PTSD (post-traumatic stress disorder) (CMS/HCC); Bipolar affective disorder, remission status unspecified (CMS/HCC); Family history of dementia; 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CMS/HCC); OSMANY (obstructive sleep apnea) Start: 04-07-2024 End: 04-07-2024 ambulatory ADELAIDA SOUSARHONDA Not Available Start: 03-22-2024 End: 03-22-2024 ambulatory RACHEL MITCHELL Not Available Start: 03-16-2024 End: 03-16-2024 Bamboo flowsheet Adelaida Yingmarquesrhonda COMMUNICATIONS EQUIPMENT INSTALLER Work Phone: [facility] Start: 03-16-2024 End: 03-16-2024 Bamboo flowsheet Adelaida Yingmarquesrhonda COMMUNICATIONS EQUIPMENT INSTALLER Work Phone: [facility] Start: 03-16-2024 End: 03-16-2024 Office outpatient visit 25 minutes Adelaida Sheyla COMMUNICATIONS EQUIPMENT INSTALLER Work Phone: [facility] Comment on above: Metabolic encephalop athy (Primary Dx); OSMANY (obstructive sleep apnea); Morbid obesity (CMS/HCC); Bilateral lower extremity edema; Tobacco dependence; Bipolar disorder with severe depression (CMS/HCC); At risk for polypharmacy; Anxiety; Primary hypertension (CMS/HCC); Right bundle branch block (RBBB) determined by electrocardiography Start: 03-16-2024 End: 03-16-2024 ambulatory ADELAIDA SHEYLA Not Available Start: 03-15-2024 End: 03-16-2024 Telephone encounter David Norman MA [facility] Start: 03-14-2024 End: 03-14-2024 Bamboo flowsheet David Foster PhD Work Phone: [facility] Start: 03-14-2024 End: 03-14-2024 Bamboo flowsheet David Foster PhD Work Phone: [facility] Start: 03-14-2024 End: 03-14-2024 ambulatory DAVID FOSTER Not Available Start: 03-14-2024 End: 03-14-2024 Patient encounter procedure David Foster PhD Work Phone: [facility] Comment on above: Altered mental statu s, unspecified altered mental status type (Primary Dx); Memory change; Concentration deficit; 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 (CMS/HCC); PTSD (post-traumatic stress disorder) ([facility]); Bipolar affective disorder, remission status unspecified ([facility]); Family history of dementia Start: 03-10-2024 End: 03-10-2024 Office outpatient visit 25 minutes Rachel REDDY Work Phone: [facility] Comment on above: Altered mental statu s, unspecified altered mental status type (Primary Dx); Restless leg; 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CMS/HCC); OSMANY (obstructive sleep apnea) Start: 03-10-2024 End: 03-10-2024 ambulatory RACHEL MITCHELL Not Available Start: 03-03-2024 End: 03-07-2024 Evaluation and management of inpatient Adelaida Carrion Facility:[facility] Start: 03-02-2024 End: 03-04-2024 Clinisync Result Encounter Generic External Data Provider [facility] External Department Unsolicited Start: 03-02-2024 End: 03-04-2024 Clinisync Result Encounter Generic External Data Provider [facility] External Department Unsolicited Start: 03-02-2024 End: 03-02-2024 Refill Adelaida Sheyla COMMUNICATIONS EQUIPMENT INSTALLER Work Phone: [facility] Comment on above: Yeast infection of t he skin Start: 03-01-2024 End: 03-01-2024 ambulatory JUANY LEGGETT Not Available Start: 03-01-2024 End: 03-01-2024 Office outpatient visit 25 minutes Juany REDDY Work Phone: [facility] [place] [facility] Comment on above: Metabolic encephalop athy (Primary Dx); OSMANY (obstructive sleep apnea); Restless leg; 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 (CMS/HCC); Degeneration of intervertebral disc of lumbar region with discogenic back pain and lower extremity pain; Memory change Start: 02-28-2024 End: 02-29-2024 Refill Adelaida 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: [facility] Comment on above: Allergic rhinitis, u nspecified Start: 02-24-2024 End: 02-24-2024 Refill Adelaida Sheyla COMMUNICATIONS EQUIPMENT INSTALLER Work Phone: [facility] Comment on above: Essential (primary) hypertension (CMS/HCC); Allergic rhinitis, unspecified Start: 02-16-2024 End: 02-16-2024 Bamboo flowsheet Adelaida Sheyla COMMUNICATIONS EQUIPMENT INSTALLER Work Phone: [facility] Start: 02-16-2024 End: 02-23-2024 Clinisync Result Encounter Adelaida Sheyla COMMUNICATIONS EQUIPMENT INSTALLER Work Phone: [facility] External Department Unsolicited Start: 02-16-2024 End: 02-23-2024 Clinisync Result Encounter Adelaida Sheyla COMMUNICATIONS EQUIPMENT INSTALLER Work Phone: [facility] External Department Unsolicited Start: 02-16-2024 End: 02-16-2024 Patient encounter procedure Adelaida Sheyla COMMUNICATIONS EQUIPMENT INSTALLER Work Phone: [facility] Start: 02-16-2024 End: 02-16-2024 Periodic preventive med est patient 40-64yrs Adelaida 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: [facility] Comment on above: Well woman exam with routine gynecological exam (Primary Dx); Morbid obesity (CMS/HCC) Start: 02-16-2024 End: 02-16-2024 ambulatory ADELAIDA SHEYLA Not Available Start: 02-04-2024 End: 02-04-2024 Refill Sonam Brown COMMUNICATIONS EQUIPMENT INSTALLER Work Phone: [facility] [place] [facility] Comment on above: Restless leg Start: 01-28-2024 End: 01-28-2024 Bamboo flowsheet Adelaida 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: [facility] Start: 01-28-2024 End: 01-28-2024 Bamboo flowsheet Adelaida 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: [facility] Start: 01-28-2024 End: 01-28-2024 Office outpatient visit 15 minutes Adelaida 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: [facility] Comment on above: Acute cystitis witho ut hematuria (Primary Dx); Tobacco dependence; Needs flu shot; Morbid obesity (CMS/HCC) Start: 01-28-2024 End: 01-28-2024 ambulatory ADELAIDA AICHHOLZ Not Available Start: 01-25-2024 End: 01-25-2024 ambulatory Syeda Mancuso MD Facility:[facility] Start: 01-21-2024 End: 01-25-2024 Clinisync Result Encounter Generic External Data Provider [facility] External Department Unsolicited Start: 01-21-2024 End: 01-25-2024 Clinisync Result Encounter Generic External Data Provider [facility] External Department Unsolicited Start: 01-05-2024 End: 01-05-2024 Clinisync Result Encounter Adelaida 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: [facility] External Department Unsolicited Start: 01-05-2024 End: 01-05-2024 Clinisync Result Encounter Adelaida 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: [facility] External Department Unsolicited Start: 01-04-2024 End: 01-04-2024 Bamboo flowsheet Adelaida 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: [facility] Start: 01-04-2024 End: 01-04-2024 Bamboo flowsheet Adelaida 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: [facility] Start: 01-04-2024 End: 01-04-2024 Office outpatient visit 25 minutes Adelaida 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: [facility] Comment on above: Bilateral lower extr emity edema (Primary Dx); Essential (primary) hypertension (CMS/HCC); Allergic rhinitis, unspecified; OSMANY (obstructive sleep apnea); Primary hypertension (CMS/HCC); Morbid obesity (CMS/HCC) Start: 01-04-2024 End: 01-04-2024 ambulatory ADELAIDA AICHHOLZ Not Available Start: 12-30-2023 End: 12-30-2023 Refill Adelaidamonse 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: [facility] Comment on above: Lower extremity elis a Start: 12-09-2023 End: 12-09-2023 Office outpatient visit 25 minutes Juayn Caballero COMMUNICATIONS EQUIPMENT INSTALLER Work Phone: [facility] [employer] [facility] Comment on above: OSMANY (obstructive sle ep apnea) (Primary Dx); Restless leg Start: 12-09-2023 End: 12-09-2023 ambulatory JUANY WINIFREDR Not Available Start: 12-08-2023 End: 12-08-2023 ambulatory SONAM C WINDNAGEL Not Available Start: 12-08-2023 End: 12-08-2023 Office outpatient visit 25 minutes Snoam C Windnagel COMMUNICATIONS EQUIPMENT INSTALLER Work Phone: [facility] [address] Comment on above: 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CMS /HCC) (Primary Dx); Restless leg; Metabolic encephalopathy Start: 12-08-2023 End: 12-08-2023 Bamboo flowsheet Sonam C Windnagel COMMUNICATIONS EQUIPMENT INSTALLER Work Phone: [facility] [employer] [facility] Start: 12-08-2023 End: 12-08-2023 Bamboo flowsheet Sonam C Windnagel COMMUNICATIONS EQUIPMENT INSTALLER Work Phone: [facility] [employer] [facility] Start: 11-27-2023 End: 11-27-2023 Refill Adelaida Aichholz COMMUNICATIONS EQUIPMENT INSTALLER Work Phone: [facility] Comment on above: Yeast infection of t he skin (Primary Dx) Start: 10-21-2023 End: 10-21-2023 ambulatory ADELAIDA AICHHOLZ Not Available Start: 10-14-2023 End: 10-14-2023 ambulatory SONAM C WINDNAGEL Not Available Start: 10-05-2023 End: 10-05-2023 ambulatory ADELAIDA AICHHOLZ Not Available Start: 09-21-2023 End: 09-21-2023 ambulatory ADELAIDA AICHHOLZ Not Available Start: 05-21-2023 Refill Adelaida Aichholz COMMUNICATIONS EQUIPMENT INSTALLER Work Phone: [facility] Comment on above: Acute cystitis with hematuria (Primary Dx) Start: 05-18-2023 End: 05-18-2023 Office outpatient visit 25 minutes Adelaida Carrion NP Work Phone: [facility] Comment on above: Encounter for annual wellness visit (AWV) in Medicare patient (Primary Dx); OSMANY (obstructive sleep apnea); Chronic pain disorder; Gastroesophageal reflux disease, unspecified whether esophagitis present; Overactive bladder; Lower extremity edema; Pre-diabetes; Morbid obesity ([facility]); Yeast infection of the skin; Tobacco dependence; Mood disorder ([facility]); Primary hypertension ([facility]); Left hip pain; Open wound of anterior abdominal wall, initial encounter Start: 05-18-2023 Bamboo flowsheet Adelaida Carrion NP Work Phone: [facility] Start: 05-18-2023 Bamboo flowsheet Adelaida Carrion NP Work Phone: [facility] Start: 05-18-2023 End: 05-18-2023 Patient encounter procedure Adelaida Carrion NP Work Phone: [facility] Start: 03-23-2023 End: 03-23-2023 Admission to same day surgery center Adelaida Carrion Work Phone: [facility] Work Phone: Start: 03-23-2023 End: 03-23-2023 ambulatory Adelaida Carrion Work Phone: [facility] Work Phone: Start: 02-12-2023 End: 02-12-2023 ambulatory Jace Graham Other [employer] Other Start: 02-12-2023 Telephone encounter Jace Haney Sales And Service Consultant Start: 12-19-2022 End: 12-19-2022 ambulatory Rosemary Kirkland Other [employer] Other Start: 12-19-2022 Office outpatient ne w 10 minutes [facility] Start: 11-17-2022 End: 11-20-2022 Evaluation and management of inpatient Adelaida Carrion Work Phone: [facility] Work Phone: Start: 09-04-2022 ambulatory ARIAN Banegas Facili ty:[facility]1 Start: 08-26-2022 ambulatory NARENDRANATH LAKSHMIPATHY . Facility:[facility] Start: 08-08-2022 End: 08-09-2022 ambulatory OXYACETYLENE BURNER ADELAIDA SHEYLA Facility:[facility] Start: 07-25-2022 End: 07-26-2022 ambulatory OXYACETYLENE BURNER ADELAIDA SHEYLA Facility:[facility] Start: 07-15-2022 End: 07-15-2022 ambulatory NARENDRANATH LAKSHMIPATHY . Facility:[facility] Start: 07-11-2022 ambulatory NARENDRANATH LAKSHMIPATHY . Facility:[facility] Start: 06-26-2022 End: 06-27-[address] FINA NIXON . Facility:[facility] Start: 06-11-2022 ambulatory OXYACETYLENE BURNER ADELAIDA CARRION Facil ity:[facility]1 Start: 05-21-2022 End: 06-11-2022 ambulatory OXYACETYLENE BURNER ADELAIDAMonse CARRION Facility:[facility] Start: 05-08-2022 End: 05-09-2022 ambulatory OXYACETYLENE BURNER ADELAIDA CARRION Facility:[facility] Start: 04-28-2022 End: 04-28-2022 ambulatory OXYACETYLENE BURNER ADELAIDA CARRION Facility:[facility] Start: 04-03-2022 End: 04-04-[address] FINA NIXON . Facility:[facility] Start: 03-19-2022 End: 03-20-2022 ambulatory OXYACETYLENE BURNER ADELAIDA CARRION Facility:[facility] Start: 02-20-2022 End: 02-20-2022 ambulatory GILMER NEVES Facility:[facility] Start: 01-10-2022 End: 02-12-2022 ambulatory BRIDGETTE MACEDO Facility:[facility] Start: 01-02-2022 End: 01-03-[address] FINA NIXON . Facility:[facility] Start: 01-01-2022 End: 01-02-2022 ambulatory BRIDGETTE MACEDO Facility:[facility] Start: 12-16-2021 End: 12-16-2021 ambulatory OXYACETYLENE BURNER ADELAIDA YINGMarquesRHONDA Facility:[facility] Start: 11-21-2021 End: 11-22-[address] DOCTOR BERGERON Facility:[facility] Start: 10-03-2021 End: 10-04-[address] FINA NIXON . Facility:[facility] Start: 09-19-[address] FINA NIXON . Faci lity:[facility]1 Start: 09-12-2021 End: 09-12-2021 ambulatory LIVIER WITT KELSIENena Facility:[facility] Start: 08-20-2021 End: 08-20-[address] FINA NIXON . Facility:[facility] Start: 07-02-2018 End: 07-03-2018 Patient encounter procedure SUKI ESCALANTE Facility:[facility] Procedures Date Procedure Procedure Detail Performing Clinician Start: 09-29-2024 Radex hips bilateral with pelvis 2 views Generic External Data Provider Start: 09-26-2024 CT LUNG SCREENING LOW DOSE Adelaida Sheyla COMMUNICATIONS EQUIPMENT INSTALLER Work Phone: Start: 09-26-2024 MM TOMOSYNTHESIS SCR EENING BI Adelaida Sheyla COMMUNICATIONS EQUIPMENT INSTALLER Work Phone: Start: 09-26-2024 XR SHOULDER RT MIN 2V G eneric External Data Provider Start: 09-26-2024 Mammography Adelaida Jayden ramos COMMUNICATIONS EQUIPMENT INSTALLER Work Phone: Start: 08-16-2024 Hemoglobin glycosylated a1c Adelaida Sheyla COMMUNICATIONS EQUIPMENT INSTALLER Work Phone: Start: 03-02-2024 BLOOD CULTURE 1 Generic External Data Provider Start: 02-16-2024 IGP,APTIMA HPV,AGE GDLN Adelaida Sheyla COMMUNICATIONS EQUIPMENT INSTALLER Work Phone: Start: 01-28-2024 Urnls dip stick/tabl et rgnt non-auto w/o micrscp Adelaida Sheyla COMMUNICATIONS EQUIPMENT INSTALLER Work Phone: Start: 01-21-2024 MHPT CULT,URINE Generic External Data Provider Start: 01-05-2024 ALL BASIC METABOLIC PANEL Adelaidamonse 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: Start: 09-18-2023 Mammography Adelaida Jayden ramos COMMUNICATIONS EQUIPMENT INSTALLER Work Phone: Start: 03-23-2023 Screening colonoscopy Alee no Sheyla Work Phone: Start: 03-23-2023 Colonoscopy Adelaida Jayden ramos COMMUNICATIONS EQUIPMENT INSTALLER Work Phone: Start: 09-15-2022 Mammography Adelaida Merrymarques rahcel COMMUNICATIONS EQUIPMENT INSTALLER Work Phone: Start: 08-28-2022 Microscopic observat ion [Identifier] in Cervix by Cyto stain Adelaida 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: Start: 07-02-2018 ANESTH KNEE AREA SURGERY CHAPARRITA HENDRICKS Start: 07-02-2018 REMOVAL OF SUPPORT IMPLANT SUKI EBRAHEIM Start: 07-02-2018 TREAT KNEECAP FRACTURE SUKI EBRAHEIM Plan of Treatment Date Care Activity Detail Author Start: 03-23-2033 Screening for malign ant neoplasm of colon [facility] Start: 09-26-2025 Screening for malign ant neoplasm of breast Mammogram [facility] Start: 08-28-2025 Screening for malign ant neoplasm of cervix [facility] Start: 02-15-2025 Medicare Annual Well ness (AWV) Medicare Annual Wellness (AWV) [facility] Start: 11-14-2024 End: 11-14-2024 Patient encounter procedure 11/14/2024 9:40 AM EDT Office Visit [facility] [address] [place] [phone] Adelaida Carrion NP [address] [place] [address] [facility] Start: 09-22-2024 End: 09-22-2024 Patient encounter procedure 09/22/2024 11:00 AM EDT Office Visit [facility] [address] [place] [phone] Rachel Mitchell PA [address] [place] [address] [facility] Start: 06-14-2025 Screening for malign ant neoplasm of breast Mammogram [facility] Start: 08-16-2024 End: 08-16-2025 CT Chest for screening WO contrast CT lung screening low dose Imaging Routine Former cigarette smoker Expected: 08/16/2024 (Approximate), Expires: 08/16/2025 [facility] Comment on above: Expected: 08/16/2024 (Approximate), Expires: 08/16/2025 Start: 08-16-2024 End: 10-16-2025 MG Breast - bilateral Screening Bilateral screening mammogram Imaging Routine Encounter for screening mammogram for malignant neoplasm of breast Expected: 08/16/2024 (Approximate), Expires: 10/16/2025 [facility] Work Phone: Comment on above: Expected: 08/16/2024 (Approximate), Expires: 10/16/2025 Start: 08-16-2024 End: 08-16-2024 Patient encounter procedure [facility] Comment on above: Bronchitis (Primary Dx); Primary hypertension (CMS/HCC); Bilateral lower extremity edema; Morbid (severe) obesity due to excess calories (CMS/HCC); Pre-diabetes Start: 08-11-2024 End: 08-11-2024 Patient encounter procedure 08/11/2024 10:30 AM EDT Office Visit [facility] [address] [place] [phone] Adelaida Carrion NP [address] [place] [phone] [facility] Start: 07-27-2024 End: 07-27-2024 Patient encounter procedure 07/27/2024 11:30 AM EDT Office Visit [facility] [address] [place] [address] Adelaida Carrion NP [address] [place] [phone] Primary hypertension (CMS/HCC) (Primary Dx); Morbid (severe) obesity due to excess calories (CMS/HCC) [facility] Comment on above: Primary hypertension (CMS/HCC) (Primary Dx); Morbid (severe) obesity due to excess calories (CMS/HCC) Start: 07-26-2024 End: 07-26-2024 Patient encounter procedure [facility] Comment on above: Arrived Start: 06-22-2024 End: 06-22-2024 Patient encounter procedure 06/22/2024 11:20 AM EDT Office Visit [facility] [place] [facility] [address] [place] [address] Juany Leggett PA [address] [place] [address] [facility] [address] [facility] Start: 06-15-2024 End: 06-15-2024 Patient encounter procedure 06/15/2024 9:20 AM EDT Office Visit [facility] [address] [phone] Adelaida Carrion NP [address] [place] [address] [facility] Start: 05-24-2024 End: 05-24-2024 Patient encounter procedure [facility] [place] [facility] Comment on above: Arrived Start: 05-18-2024 Medicare Annual Well ness (AWV) Medicare Annual Wellness (AWV) [facility] Start: 05-12-2024 End: 05-12-2024 [facility] Comment on above: Primary hypertension (CMS/HCC) (Primary Dx); Chronic kidney disease, stage 3a (HCC) (CMS/HCC); Morbid (severe) obesity due to excess calories (CMS/HCC); Body mass index (BMI) 45.0-49.9, adult (CMS/HCC); OSMANY (obstructive sleep apnea); Hemiparesis, right (CMS/HCC); Gastroesophageal reflux disease, unspecified whether esophagitis present; Metabolic encephalopathy Start: 04-07-2024 End: 04-07-2024 Patient encounter procedure 04/07/2024 12:30 PM EST Office Visit [facility] [address] [phone] [facility] Start: 04-04-2024 End: 04-04-2024 Patient encounter procedure 04/04/2024 1:20 PM EST Office Visit [facility] [address] [place] [address] Adelaida Carrion NP [address] [place] [address] [facility] Start: 03-22-2024 End: 03-22-2024 Clinical Support 03/22/2024 10:00 AM EST Clinical Support [facility]3] [address] [facility] [place] [address] [facility]3] [address] Start: 03-16-2024 End: 03-16-2024 Patient encounter procedure [facility] Comment on above: Metabolic encephalop athy (Primary Dx); OSMANY (obstructive sleep apnea); Morbid obesity (CMS/HCC); Bilateral lower extremity edema; Tobacco dependence; Bipolar disorder with severe depression (CMS/HCC); At risk for polypharmacy; Anxiety Start: 03-14-2024 End: 03-14-2024 Patient encounter procedure 03/14/2024 10:00 AM EST Office Visit [facility] [address] [phone] David Foster, PhD [address] [place], [place] [phone] [facility] Start: 03-11-2024 End: 03-11-2025 EEG 2 Hour Routine EEG 2 Hour Routine Neurology Routine Altered mental status, unspecified altered mental status type Expected: 03/11/2024 (Approximate), Expires: 03/11/2025 [facility] Work Phone: Comment on above: Expected: 03/11/2024 (Approximate), Expires: 03/11/2025 Start: 03-10-2024 End: 03-10-2024 Patient encounter procedure 03/10/2024 3:40 PM EST Office Visit [facility] [address] [place] [phone] Rachel Mitchell PA [address] [place], [place] [phone] [facility] Start: 03-01-2024 End: 03-01-2024 Patient encounter procedure 03/01/2024 12:00 PM EST Office Visit [facility] [place] [address] [place] [phone] Juany Leggett PA [address] [place], [place] [phone] [facility] [place] [facility] Start: 02-29-2024 End: 02-29-2024 Patient encounter procedure 02/29/2024 2:40 PM EST Office Visit [facility] [place] [address] [place] [address] Sonam Brown, COMMUNICATIONS EQUIPMENT INSTALLER [address] [place] [address] [facility] [place] [facility] Start: 02-16-2024 End: 02-15-2025 THIN PREP TIS PAP AND HR HPV DNA THIN PREP TIS PAP AND HR HPV DNA Pathology and Cytology Routine Well woman exam with routine gynecological exam Expected: 02/16/2024 (Approximate), Expires: 02/15/2025 [facility] Work Phone: Comment on above: Expected: 02/16/2024 (Approximate), Expires: 02/15/2025 Start: 02-16-2024 End: 02-16-2024 Patient encounter procedure 02/16/2024 11:30 AM EST Procedure Visit [facility] [address] [place] [phone] Adelaida Carrion NP [address] [place] [phone] [facility] Start: 02-04-2024 Influenza vaccination Influenza Vacc ine (#1) [facility] Comment on above: Postponed from 12/05 (Patient Does Not Have Time) Start: 01-28-2024 End: 01-27-2025 URINARY TRACT INFECTION (HTRX) URINARY TRACT INFECTION (HTRX) Lab Routine Acute cystitis without hematuria Expected: 01/28/2024 (Approximate), Expires: 01/27/2025 [facility] Work Phone: Comment on above: Expected: 01/28/2024 (Approximate), Expires: 01/27/2025 Start: 01-28-2024 End: 01-28-2024 Patient encounter procedure [facility] Comment on above: Tobacco dependence ( Primary Dx) Start: 01-04-2024 End: 01-03-2025 Basic metabolic 1998 panel - Serum or Plasma Basic metabolic panel Lab Routine Bilateral lower extremity edema Expected: 01/04/2024 (Approximate), Expires: 01/03/2025 [facility] Work Phone: Comment on above: Expected: 01/04/2024 (Approximate), Expires: 01/03/2025 Start: 01-04-2024 End: 01-04-2024 Patient encounter procedure [facility] Comment on above: Essential (primary) hypertension (CMS/HCC); Allergic rhinitis, unspecified Start: 12-09-2023 End: 12-09-2023 Patient encounter procedure 12/09/2023 10:30 AM EDT Office Visit [facility] [place] [address] [place] [phone] Juany Caballero NP [address] [place], [place] [facility] [place] [facility] Start: 12-08-2023 End: 12-08-2023 Patient encounter procedure 12/08/2023 3:20 PM EDT Office Visit [facility] [place] [address] [place] [address] Sonam Brown, COMMUNICATIONS EQUIPMENT INSTALLER [address] [place] [address] [facility] [place] [address] [facility] Start: 09-16-2023 Screening for malign ant neoplasm of breast Mammogram [facility] Start: 08-17-2023 End: 08-17-2023 Patient encounter procedure 08/17/2023 9:20 AM EDT Office Visit [facility] [address] [place] [address] Adelaida Carrion, BRIANA [address] [place] [phone] [facility] Start: 05-22-2023 End: 05-22-2023 Patient encounter procedure 05/22/2023 8:45 AM EST Office Visit [facility] [address] [facility] [facility] [address] [place] [address] Travon Hines, MAUREEN [address] [facility] [address] [place] [address] [facility] Start: 05-18-2023 End: 05-18-2023 Patient encounter procedure 05/18/2023 4:30 PM EST Office Visit [facility] [address] [place] [address] Adelaida Carrion, BRIANA [address] [place] [phone] Arrived [facility] Comment on above: Arrived Start: 05-18-2023 End: 05-18-2024 XR Hip - left 3 Views XR hip left 2 or 3 views Imaging Routine Left hip pain Expected: 05/18/2023 (Approximate), Expires: 05/18/2024 [facility] Work Phone: Comment on above: Expected: 05/18/2023 (Approximate), Expires: 05/18/2024 Start: 03-23-2023 [facility] Start: 11-20-2022 [facility] Start: 11-18-2022 Referral to clinical physician scientist [facility] Start: 11-17-2022 Hospital admission [facility] Start: 11-17-2022 [facility] Start: 12-06-1991 Screening for malign ant neoplasm of cervix HPV/Cotest [facility] Start: 1961 Medicare Annual Well ness (AWV) Medicare Annual Wellness (AWV) [facility] Start: 1961 Screening for malign ant neoplasm of colon [facility] Start: 1961 Screening for malign ant neoplasm of lung Lung Cancer Screening Shared Decision Making [facility] BLOOD CULTURE 1 BLOOD CULTURE 1 Lab Routine 03/02/2024 3:20 AM EST [facility] Patient Education [facility] Work Phone: Patient referral [facility] Work Phone: [facility] Immunizations Immunization Date Immunization Notes Care Provider Fa [facility] 01-28-2024 Influenza, injectabl e, Madin [place] Canine Kidney, preservative free, quadrivalent Adelaida Aichholz COMMUNICATIONS EQUIPMENT INSTALLER Work Phone: [facility] 08-17-2023 zoster vaccine recombinant Adelaida Aichholz COMMUNICATIONS EQUIPMENT INSTALLER Work Phone: [facility] 02-13-2023 influenza, injectabl e, quadrivalent, preservative free Adelaida Aichholz COMMUNICATIONS EQUIPMENT INSTALLER Work Phone: [facility] 02-13-2023 SARS-COV-2 (COVID-19 ) vaccine, mRNA, spike protein, LNP, PF, 50 mcg/0.5 mL Adelaida Aichholz COMMUNICATIONS EQUIPMENT INSTALLER Work Phone: [facility] 02-13-2023 influenza virus vaccine, unspecified formulation Adelaida Aichholz COMMUNICATIONS EQUIPMENT INSTALLER Work Phone: [facility] 02-19-2022 diphtheria, tetanus toxoids and pertussis vaccine Adelaida Aichholz COMMUNICATIONS EQUIPMENT INSTALLER Work Phone: [facility] 03-02-2021 Moderna SARS-CoV-2 Vaccination Adelaida Aichholz COMMUNICATIONS EQUIPMENT INSTALLER Work Phone: [facility] 08-24-2020 Moderna SARS-CoV-2 Vaccination Adelaida Merryholz COMMUNICATIONS EQUIPMENT INSTALLER Work Phone: [facility] 07-27-2020 Moderna SARS-CoV-2 Vaccination Adelaida Aichholz COMMUNICATIONS EQUIPMENT INSTALLER Work Phone: [facility] 05-28-2018 influenza, injectabl e, quadrivalent, preservative free Adelaida Aicmarquesholz Work Phone: [facility] 2017 pneumococcal conjuga te vaccine, 13 valent Adelaida Aicmarquesholz COMMUNICATIONS EQUIPMENT INSTALLER Work Phone: [facility] Payers Date Payer Category Payer Medicare [id number] 2022 Self-pay [id number] 2022 Medicare [id number] 2022 Medicare (Managed Care) [facility] [id number] 2008 Unknown [id number] 1961 Unknown [id number] 2.16.840.1.268789.3.579.2 .647 1961 Unknown [id number] 2.16.840.1.412856.3.579.2 .593 1961 Unknown [id number] 2.16.840.1.834438.3.579.2 .593 1961 Unknown [id number] 2.16.840.1.675159.3.579.2 .593 1961 Unknown [id number] 2.16.840.1.086920.3.579.2 .593 1961 Unknown [id number] 2.16.840.1.004749.3.579.2 .593 1961 Unknown [id number] 2.16.840.1.086617.3.579.2 .593 1961 Unknown [id number] 2.16.840.1.990217.3.579.2 .593 1961 Unknown [id number] 2.16.840.1.187979.3.579.2 .593 1961 Unknown [id number] 2.16.840.1.992305.3.579.2 .593 1961 Unknown [id number] 2.16.840.1.145825.3.579.2 .593 1961 Unknown [id number] 2.16.840.1.729354.3.579.2 .593 1961 Unknown [id number] 2.16.840.1.186747.3.579.2 .593 1961 Unknown [id number] 2.16.840.1.076161.3.579.2 .593 1961 Unknown [id number] 2.16.840.1.856314.3.579.2 .593 1961 Unknown [id number] 2.16.840.1.593593.3.579.2 .593 1961 Unknown [id number] 2.16.840.1.540483.3.579.2 .593 1961 Unknown [id number] 2.16.840.1.748837.3.579.2 .593 1961 Unknown [id number] 2.16.840.1.128687.3.579.2 .593 1961 Unknown [id number] 2.16.840.1.918274.3.579.2 .593 1961 Unknown [id number] 2.16.840.1.032059.3.579.2 .593 1961 Unknown [id number] 2.16.840.1.623951.3.579.2 .593 1961 Unknown [id number] 2.16.840.1.735456.3.579.2 .593 1961 Unknown [id number] 2.16.840.1.605223.3.579.2 .593 1961 Unknown [id number] 2.16.840.1.278140.3.579.2 .593 1961 Unknown [id number] 2.16.840.1.183671.3.579.2 .125 1961 Unknown [id number] 2.16.840.1.698985.3.579.2 .125 1961 Unknown [id number] 2.16.840.1.872554.3.579.2 .125 1961 Unknown [id number] 2.16.840.1.021832.3.579.2 .125 1961 Unknown [id number] 2.16.840.1.165574.3.579.2 .125 1961 Unknown [id number] 2.16.840.1.222456.3.579.2 .125 1961 Unknown [id number] 2.16.840.1.303101.3.579.2 .125 1961 Unknown [id number] 2.16.840.1.730630.3.579.2 .1258 1961 Unknown [id number] 2.16.840.1.331578.3.579.2 .1258 1961 Unknown [id number] 2.16.840.1.964635.3.579.2 .1258 1961 Unknown [id number] 2.16.840.1.151185.3.579.2 .1258 1961 Unknown [id number] 2.16.840.1.500199.3.579.2 .1258 1961 Unknown [id number] 2.16.840.1.858932.3.579.2 .1258 1961 Unknown [id number] 2.16.840.1.264794.3.579.2 .1258 1961 Unknown [id number] 2.16.840.1.749771.3.579.2 .1258 1961 Unknown [id number] 2.16.840.1.886661.3.579.2 .1258 1961 Unknown [id number] 2.16.840.1.275513.3.579.2 .1258 1961 Unknown [id number] 2.16.840.1.901952.3.579.2 .1258 1961 Unknown [id number] 2.16.840.1.213591.3.579.2 .1258 1961 Unknown [id number] 2.16.840.1.046319.3.579.2 .1258 1961 Unknown [id number] 2.16.840.1.477746.3.579.2 .1961 Unknown [id number] 2.16.840.1.102273.3.579.2 .1961 Unknown [id number] 2.16.840.1.990971.3.579.2 .1961 Unknown [id number] 2.16.840.1.654963.3.579.2 .196 1961 Unknown [id number] 2.16.840.1.475690.3.579.2 .196 1961 Unknown [id number] 2.16.840.1.867062.3.579.2 .196 1959 Medicare [id number] 1959 Unknown [id number] Private Health Insurance [facility] [id number] Unknown [id number] 2.16.840.1.711933.3.579.2 .531 Unknown [id number] 2.16.840.1.707578.3.579.2 .531 Social History Date Type Detail Facility Start: 11-18-2022 End: 10-14-2023 Tobacco smoking status [facility] Ex-smoker (finding) [facility] Start: 1960 Sex Assigned At Female [facility] Start: 03-25-2023 End: 08-16-2023 Sex Assigned At [facility] Start: 04-06-1976 End: 04-06-2016 History of tobacco use Current smoker [facility] Start: 04-06-1976 End: 04-06-2016 History of tobacco use Cigarette Smoker [facility] Start: 02-09-2023 End: 08-16-2023 Cigarettes smoked current (pack per day) - Reported 1 [facility] Start: 02-09-2023 End: 10-14-2023 Tobacco use and exposure Smokeless tobacco non-user [facility] Start: 05-18-2023 End: 08-16-2024 Alcohol intake Lifetime non-drinker (finding) [facility] Start: 11-13-2022 Alcohol Comment caffeine intake: 1-2 cups per day. [facility] Start: 10-01-2022 Gender identity Identifies as female gender (finding) [facility] Start: 10-01-2022 Sexual orientation Heterosexual (finding) [...] 11-20-2022 Functional status Patient at Baseline [facility] Work Phone: Mental Status Date Assessment Result Facility 11-20-2022 Cognitive function Cognitive Sta tus Patient is Progressing Toward Baseline [facility] Work Phone: Clinical Notes 10-03-2021 [...] biotin 5 MG tablet Pt taking OTC (Gochikuru) Calcium Citrate-Vitamin D (CITRACAL + D PO) Pt taking OTC (Picurio) carvedilol (COREG) 12.5 mg, Oral, 2 times daily with meals cetirizine (ZYRTEC) 10 mg, Oral, Daily diclofenac (Voltaren) 50 MG EC tablet DULoxetine (CYMBALTA) 60 mg, 2 times daily fluticasone (Flonase) 50 MCG/ACT nasal spray 2 sprays, Each Nostril, Daily gabapentin (NEURONTIN) 300 mg, Oral, 2 times daily, Due now losartan (COZAAR) 100 mg, Oral, Daily Magnesium 400 MG capsule Pt taking OTC(PersonSpot) Melatonin 12 MG tablet 1 tablet, Nightly Multiple Vitamins-Minerals (BARIATRIC MULTIVITAMINS/IRON PO) Pt taking OTC (Gochikuru) omeprazole (PRILOSEC) 20 mg, Oral, Daily before [...] Anxiety 05/18/2023 Bipolar disorder with severe depression ([facility]) 05/18/2023 Brain lesion Brain vascular malformation Chronic pain disorder Closed fracture of patella 02/04/2018 Colon polyps Constipation Degenerative cervical disc Degenerative lumbar disc Depression ([facility]) 05/18/2023 Diastolic dysfunction Dizziness 05/18/2023 Dysphagia Fibromyalgia Fibromyalgia Gastrocnemius equinus GERD (gastroesophageal reflux disease) Heart murmur Hematoma of right breast Hemiparesis ([facility]) Hemiparesis, right ([facility]) Hemorrhoid int/external hemorrhoids Hiatal hernia Iron deficiency Left foot pain 03/25/2023 Lower extremity edema Mood disorder ([facility]) mixed mood disorder OSMANY (obstructive sleep apnea) Osteoporosis ([facility]) Overactive bladder Pre-diabetes Primary hypertension ([facility]) 03/25/2023 PTSD (post-traumatic stress disorder) ([facility]) Restless leg Right knee pain Right sided weakness S/P bariatric surgery Shingles Slurred speech Stroke ([facility]) 2018 Tenosynovitis, de Quervain Thoracic [...] trelegy 100's resolved documented in this encounter [facility] 08-16-2024 Instructions Adelaida Carrion NP - 08/16/2024 11:30 AM EDT Mammogram and lung cancer CT documented in this encounter [facility] 07-27-2024 History of Present illness Narrative Associated Problem(s): Bronchitis Continue OTC mucus relief meds Will add trelegy for bronchitis 100's #2 samples lot [id number], exp 10/28 Fu if not better No s/s resp distress [facility]- 07/24/24 Bronchitis & Leurisy Medications: [...] with chief complaint of Hospital Follow-up HPI: [facility]- 07/24/24 Bronchitis & Leurisy Medications: [...] biotin 5 MG tablet Pt taking OTC (Gochikuru) Calcium Citrate-Vitamin D (CITRACAL + D PO) Pt taking OTC (Picurio) carvedilol (COREG) 12.5 mg, Oral, 2 times daily with meals cetirizine (ZYRTEC) 10 mg, Oral, Daily diclofenac (Voltaren) 50 MG EC tablet DULoxetine (CYMBALTA) 60 mg, 2 times daily fluticasone (Flonase) 50 MCG/ACT nasal spray 2 sprays, Each Nostril, Daily gabapentin (NEURONTIN) 300 mg, Oral, 2 times daily, Due now losartan (COZAAR) 100 mg, Oral, Daily Magnesium 400 MG capsule Pt taking OTC(PersonSpot) Melatonin 12 MG tablet 1 tablet, Nightly Multiple Vitamins-Minerals (BARIATRIC MULTIVITAMINS/IRON PO) Pt taking OTC (Gochikuru) omeprazole (PRILOSEC) 20 mg, Oral, Daily before [...] Mood disorder ([facility]) mixed mood disorder OSMANY (obstructive sleep apnea) Osteoporosis ([facility]) Overactive bladder Pre-diabetes Primary hypertension ([facility]) 03/25/2023 PTSD (post-traumatic stress disorder) ([facility]) Restless leg Right knee pain Right sided weakness S/P bariatric surgery Shingles Slurred speech Stroke ([facility]) 2018 Tenosynovitis, de Quervain Thoracic [...] meds: amlodipine, losartan documented in this encounter [facility] 07-26-2024 History of Present illness Narrative Images from the original note were not included. Subjective Chief Complaint Patient presents with Altered Mental Status Past Medical History: Diagnosis Date Abnormal mammogram of left breast Achilles tendinitis, right leg Acute gout of right foot, unspecified cause Allergic rhinitis 05/18/2023 Anemia Anxiety 05/18/2023 Bipolar disorder with severe depression ([facility]) 05/18/2023 Brain lesion Brain vascular [...] S/P bariatric surgery Shingles Slurred speech Stroke ([facility]) 2018 Tenosynovitis, de Quervain Thoracic [...] Review Audit Reviewed by Beronica Reyes MA (Return Checker) on 07/26/24 at 1049 Medication Order Taking? Sig Documenting Provider Last Dose Status amLODIPine (Norvasc) 10 MG tablet [id number] Take 1 tablet (10 mg) by mouth Daily Adelaida Carrion NP 06/11/24 235 azithromycin (Zithromax) 250 MG tablet [id number] Day #1: 2 tablets, and Day 2-5: 1 tablet daily Adelaida Carrion NP Active biotin 5 MG tablet [id number] Pt taking OTC ([employer]) Historical Provider, Active Calcium Citrate-Vitamin D (CITRACAL + D PO) [id number] Pt taking OTC (Picurio) Historical Provider, Active carvedilol (Coreg) 12.5 MG tablet [id number] Take 1 tablet (12.5 mg) by mouth in the morning and 1 tablet (12.5 mg) in the evening. Take with meals. Adelaida Carrion NP 06/11/24 2359 cetirizine (ZyrTEC) 10 MG tablet [id number] Take 1 tablet (10 mg) by mouth Daily Adelaida Carrion NP 06/11/242358 DULoxetine (Cymbalta) [address] capsule [id number] Take 60 mg by mouth in the morning and 60 mg before bedtime. Do not crush or chew.. Active fluticasone (Flonase) 50 MCG/ACT nasal spray [id number] Administer 2 sprays into each nostril Daily Adelaida Carrion NP 06/11/242358 gabapentin (Neurontin) 300 MG capsule [id number] Take 1 capsule (300 mg) by mouth in the morning and 1 capsule (300 mg) before bedtime. Due now. MAUREEN Akbar Active losartan (Cozaar) 100 MG tablet [id number] Take 1 tablet (100 mg) by mouth Daily Adelaida Carrion NP 06/11/242358 Magnesium 400 MG capsule [id number] Pt taking OTC(PersonSpot) Historical ProviderMD Active Melatonin 12 MG tablet [id number] Take 1 tablet by mouth at bedtime Active Multiple Vitamins-Minerals (BARIATRIC MULTIVITAMINS/IRON PO) [id number] Pt taking OTC ([facility]) Historical ProviderMD Active nystatin (Mycostatin) 645850 UNIT/GM powder [id number] Apply 1 application topically in the morning and 1 application before bedtime. Adelaida Carrion NP Active nystatin (Mycostatin) cream [id number] Adelaida Carrion NP Active omeprazole (PriLOSEC) [address] capsule [id number] Take 1 capsule (20 mg) by mouth in the morning. Take before meals. Adelaida Carrion NP 06/11/242358 rOPINIRole (Requip) 2 MG tablet [id number] Take 1 tablet (2 mg) by mouth at bedtime MAUREEN Akbar Active spironolactone (Aldactone) 50 MG tablet [id number] Take 1 tablet (50 mg) by mouth Daily Adelaida Carrion NP 06/11/242358 tiZANidine (Zanaflex) 4 MG tablet [id number] Take 4 mg by mouth every 8 (eight) hours if needed for muscle spasms 1-2 tablets Adleaida Carrion NP Active traZODone (Desyrel) 150 MG tablet [id number] Take 150 mg by mouth at bedtime Active Vraylar 3 MG capsule [id number] Active HPI AMS -weaned Lacosimide -denies any further headaches and dizziness -denies any recent episodes of confusion -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 LUE Strength deltoid, biceps, triceps, wrist extensors, wrist extensors, wrist flexor, bracer strength 5/5. RLE Strength illopsoas, quadriceps, tibialis [...] not all inclusive. Patient was admitted to [facility] from the [facility] on 08/24/2023 with acute respiratory failure and confusion thought to be secondary to metabolic encephalopathy. MOCA 03/01/24 was 26/30. She notes she did speech therapy and responded well to this. She was recently evaluated at [facility] 03/02/2024 for severe encephalopathy. She had brain [...] Averages almost 6 hours a night. ___ [facility] evaluation 02/29/2024: Brain MRI with and without [...] of the brain in July 2019 showed [id number] white matter changes with the largest area [...] in 2 months documented in this encounter [facility] 05-12-2024 History of Present illness Narrative [...] biotin 5 MG tablet Pt taking OTC (Gochikuru) Calcium Citrate-Vitamin D (CITRACAL + D PO) Pt taking OTC (Picurio) carvedilol (COREG) 12.5 mg, Oral, 2 times [...] Daily Magnesium 400 MG capsule Pt taking OTC(PersonSpot) Melatonin 12 MG tablet 1 tablet, Nightly Multiple Vitamins-Minerals (BARIATRIC MULTIVITAMINS/IRON PO) Pt taking OTC ([facility]) nystatin (Mycostatin) [id number] UNIT/GM powder 1 application , 2 times [...] Anxiety 05/18/2023 Bipolar disorder with severe depression ([facility]) 05/18/2023 Brain lesion Brain vascular malformation Chronic pain disorder Closed fracture of patella 02/04/2018 Colon polyps Constipation Degenerative cervical disc Degenerative lumbar disc Depression ([facility]) 05/18/2023 Diastolic dysfunction Dizziness 05/18/2023 Dysphagia Fibromyalgia Fibromyalgia Gastrocnemius equinus GERD (gastroesophageal reflux disease) Heart murmur Hematoma of right breast Hemiparesis ([facility]) Hemiparesis, right ([facility]) Hemorrhoid int/external hemorrhoids Hiatal hernia Iron deficiency Left foot pain 03/25/2023 Lower extremity edema Mood disorder ([facility]) mixed mood disorder OSMANY (obstructive sleep apnea) Osteoporosis ([facility]) Overactive bladder Pre-diabetes Primary hypertension ([facility]) 03/25/2023 PTSD (post-traumatic stress disorder) ([facility]) Restless leg Right knee pain Right sided weakness S/P bariatric surgery Shingles Slurred speech Stroke ([facility]) 2018 Tenosynovitis, de Quervain Thoracic [...] Morbid (severe) obesity due to excess calories ([facility]) Discussed with patient their BMI [...] that manages your OSMANY: Daniela Hemiparesis, right ([facility]/HCC) Stable with this from prior stroke GERD [...] spironolactone (Aldactone) 50 MG tablet Primary hypertension ([facility]/HCC) - Primary Please check blood pressure daily and record DASH diet Limit caffeine Take medication as directed Contact office if chest pain, pressure, dizziness, shortness of breath, swelling legs Recommend slow position changes Current meds: amlodipine, losartan Chronic kidney disease, stage 3a (HCC) (CMS/[facility]) Monitor labs at minimum every year Body mass index (BMI) 45.0-49.9, adult ([facility]) Other Visit Diagnoses Essential (primary) [...] that supplies your machine and tubing/filters etc: [facility] Doctor that manages your OSMANY: Daniela Associated Problem(s): Hemiparesis, right (CMS/HCC) Stable with this from prior stroke documented in this encounter [facility] 05-12-2024 Instructions Adelaida Carrion NP - 05/12/2024 10:00 AM EST No changes in meds documented in this encounter [facility] 04-12-2024 Telephone encounter Note 03/10/2024 Continue Gabapentin 300 mg BID for RLS. Continue clonazepam 0.5mg PO BID for RLS. This was decreased during recent hospitalization Continue Vimpat 50mg PO BID for seizure prevention [facility] 04-12-2024 Miscellaneous Notes 03/10/2024 Continue Gabapentin 300 mg BID for RLS. Continue clonazepam 0.5mg PO BID for RLS. This was decreased during recent hospitalization Continue Vimpat 50mg PO BID for seizure prevention documented in this encounter [facility] 04-07-2024 History of Present illness Narrative [...] homebody. Remains involved as a classically trained payasUgymranCytoVale zhou. Diagnosed with OSMANY and RLS, wears CPAP nightly. Pain complaints include fibromyalgia and degenerative disc disease. Also has prior history of migraines which have resolved over the past 17 years. Neurological history includes small left thalamic stroke in 2016. MoCA 26/30. Patient accurately recalled this screening measure as well as her overall performance and score on it. Admitted to [facility] from the [facility] on 08/24/2023 with acute respiratory failure and confusion thought to be secondary to metabolic encephalopathy. LTME in August 2023 negative. Recently evaluated at [facility] on 03/02/2024 for severe encephalopathy. Brain MRI [...] any history of alcohol/substance abuse. Reformed smoker. Kaguyuk language Rwandan. Reported relocating from [place] to [place] in 2011. Completed a bachelor's degree. 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 Currently on disability. Resides with of 26 years along with her son, grandson, and 2 dogs. Has 2 children from a prior relationship. MEDICAL HISTORY/MEDICATION: MEDICATIONS: Current Outpatient Medications Medication Instructions amLODIPine (NORVASC) 10 mg, Oral, Daily biotin 5 MG tablet Pt taking OTC ([facility]uru) Calcium Citrate-Vitamin D (CITRACAL + D PO) Pt taking OTC ([employer]urio) carvedilol (COREG) 12.5 mg, Oral, 2 times [...] Daily Magnesium 400 MG capsule Pt taking OTC(PersonSpot) Melatonin 12 MG tablet 1 tablet, Oral, Nightly Multiple Vitamins-Minerals (BARIATRIC MULTIVITAMINS/IRON PO) Pt taking OTC ([facility]uru) nystatin (Mycostatin) [id number] UNIT/GM powder 1 application , 2 times [...] design >16th %ile. Motor/Speed of Processing: Right-handed. 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 Recognition discriminability 93rd [...] Please contact me with any questions at [phone]. documented in this encounter [facility] 03-16-2024 History of Present illness Narrative Associated Problem(s): Right bundle branch block (RBBB) determined by electrocardiography At this point I will look at her past EKG's, She has had ECHO in past No symptoms, at this time I do not think that further testing is needed Pt is having a memory test done on apr 07 [place] Pt is anxious and afraid-pt father had dementia Spironolactone pt is asking for 50mg instead of 25mg Images from the original note were not included. Michelle Be is a 63 y.o. female presents with chief complaint of Anxiety HPI: Here for hospital follow up: AMS She was evaluated at [facility], was seen by Neurology reviewed notes from [...] biotin 5 MG tablet Pt taking OTC (Gochikuru) Calcium Citrate-Vitamin D (CITRACAL + D PO) Pt taking OTC (Picurio) carvedilol (COREG) 12.5 mg, Oral, 2 times [...] Daily Magnesium 400 MG capsule Pt taking OTC(PersonSpot) Melatonin 12 MG tablet 1 tablet, Oral, Nightly Multiple Vitamins-Minerals (BARIATRIC MULTIVITAMINS/IRON PO) Pt taking OTC (Goch[facility]uru) nystatin (Mycostatin) [id number] UNIT/GM powder 1 application , 2 times [...] Anxiety 05/18/2023 Bipolar disorder with severe depression ([facility]) 05/18/2023 Brain lesion Brain vascular malformation Chronic pain disorder Closed fracture of patella 02/04/2018 Colon polyps Constipation Degenerative cervical disc Degenerative lumbar disc Depression ([facility]) 05/18/2023 Diastolic dysfunction Dizziness 05/18/2023 Dysphagia Fibromyalgia Fibromyalgia Gastrocnemius equinus GERD (gastroesophageal reflux disease) Heart murmur Hematoma of right breast Hemiparesis ([facility]) Hemiparesis, right ([facility]) Hemorrhoid int/external hemorrhoids Hiatal hernia Iron deficiency Left foot pain 03/25/2023 Lower extremity edema Mood disorder ([facility]) mixed mood disorder OSMANY (obstructive sleep apnea) Osteoporosis ([facility]) Overactive bladder Pre-diabetes Primary hypertension ([facility]) 03/25/2023 PTSD (post-traumatic stress disorder) ([facility]) Restless leg Right knee pain Right sided weakness S/P bariatric surgery Shingles Slurred speech Stroke ([facility]) 2018 Tenosynovitis, de Quervain Thoracic [...] to have evaluation documented in this encounter [facility] 03-16-2024 Instructions Adelaida Carrion NP - 03/16/2024 10:00 AM EST Spironolactone: I discontinued the 25mg script for this, sent a new script to [facility], for a 50mg pill, you will take 1 pill daily Memory testing in Apr 2024 Follow up with me in early May, sooner if needed documented in this encounter [facility] 03-16-2024 Telephone encounter Note Yep, sent to [facility]. [facility] 03-16-2024 Miscellaneous Notes Yep, sent to [facility]. Patient calls and states that hospital lowered her requip to 2 mg at bed time. Okay to send as new dosage? documented in this encounter [facility] 03-15-2024 Telephone encounter Note Patient calls and states that hospital lowered her requip to 2 mg at bed time. Okay to send as new dosage? [facility] 03-14-2024 History of Present illness Narrative [...] homebody. Remains involved as a classically trained payasUgymrano zhou. Diagnosed with OSMANY and RLS, wears CPAP nightly. Pain complaints include fibromyalgia and degenerative disc disease. Also has prior history of migraines which have resolved over the past 17 years. Neurological history includes small left thalamic stroke in 2016. MoCA . Patient accurately recalled this screening measure as well as her overall performance and score on it. Admitted to [facility] from the [facility] on 08/24/2023 with acute respiratory failure and confusion thought to be secondary to metabolic encephalopathy. Previous LTME in August 2023 negative. Recently evaluated at [facility] on 03/02/2024 for severe encephalopathy. Brain MRI [...] any history of alcohol/substance abuse. Reformed smoker. Kaguyuk language Rwandan. Reported relocating from [place] to [place] in 2011. Completed a bachelors degree. Previously [...] Heart murmur Hematoma of right breast Hemiparesis ([facility]) Hemiparesis, right ([facility]) Hemorrhoid int/external hemorrhoids Hiatal hernia Iron deficiency Left foot pain 03/25/2023 Lower extremity edema Mood disorder ([facility]) mixed mood disorder OSMANY (obstructive sleep apnea) Osteoporosis ([facility]) Overactive bladder Pre-diabetes Primary hypertension ([facility]) 03/25/2023 PTSD (post-traumatic stress disorder) ([facility]) Restless leg Right knee pain Right sided weakness S/P bariatric surgery Shingles Slurred speech Stroke ([facility]) 2018 Tenosynovitis, de Quervain Thoracic back pain, unspecified back pain laterality, unspecified chronicity Tobacco dependence Vertigo, benign paroxysmal Yeast infection of the skin 05/18/2023 MEDICATIONS: Current Outpatient Medications Medication Instructions amLODIPine (NORVASC) 10 mg, Oral, Daily biotin 5 MG tablet Pt taking OTC [employer]) Calcium Citrate-Vitamin D (CITRACAL + D PO) Pt taking OTC (Picurio) carvedilol (COREG) 12.5 mg, Oral, 2 times [...] Daily Magnesium 400 MG capsule Pt taking OTCAngella Joy) Melatonin 12 MG tablet 1 tablet, Oral, Nightly Multiple Vitamins-Minerals (BARIATRIC MULTIVITAMINS/IRON PO) Pt taking OTC ([facility]uru) nystatin (Mycostatin) [id number] UNIT/GM powder 1 application , Topical, 2 [...] Please contact me with any questions at [phone]. documented in this encounter [facility] 02-16-2024 History of Present illness Narrative [...] biotin 5 MG tablet Pt taking OTC (Gochikuru) Calcium Citrate-Vitamin D (CITRACAL + D PO) Pt taking OTC ([facility]) carvedilol (COREG) 12.5 mg, Oral, 2 [...] Daily Magnesium 400 MG capsule Pt taking OTCAngella Joy) Melatonin 12 MG tablet 1 tablet, Oral, Nightly Multiple Vitamins-Minerals (BARIATRIC MULTIVITAMINS/IRON PO) Pt taking OTC (Gochikuru) nystatin (Mycostatin) 323185 UNIT/GM powder 1 application , Topical, 2 [...] Anxiety 05/18/2023 Bipolar disorder with severe depression ([facility]) 05/18/2023 Brain lesion Brain vascular malformation Chronic pain disorder Closed fracture of patella 02/04/2018 Colon polyps Constipation Degenerative cervical disc Degenerative lumbar disc Depression ([facility]) 05/18/2023 Diastolic dysfunction Dizziness 05/18/2023 Dysphagia Fibromyalgia Fibromyalgia Gastrocnemius equinus GERD (gastroesophageal reflux disease) Heart murmur Hematoma of right breast Hemiparesis ([facility]) Hemiparesis, right ([facility]) Hemorrhoid int/external hemorrhoids Hiatal hernia Iron deficiency Left foot pain 03/25/2023 Lower extremity edema Mood disorder ([facility]) mixed mood disorder OSMANY (obstructive sleep apnea) Osteoporosis ([facility]) Overactive bladder Pre-diabetes Primary hypertension ([facility]) 03/25/2023 PTSD (post-traumatic stress disorder) ([facility]) Restless leg Right knee pain Right sided weakness S/P bariatric surgery Shingles Slurred speech Stroke ([facility]) 2018 Tenosynovitis, de Quervain Thoracic [...] nursing note reviewed. Exam conducted with a clinic administrator present. Constitutional: General: She is not in [...] chronic conditions allow documented in this encounter [facility] 01-28-2024 History of Present illness Narrative [...] ER fu for UTI and dehydration. See [facility] for HPI Was sent home on Bactrim. Feels completely fine now, no fever, chills, malodorous urine, no constipation diarrhea or abd pain SUBJECTIVE: MEDICATIONS: Current Outpatient Medications Medication Instructions amLODIPine (NORVASC) 10 mg, Oral, Daily biotin 5 MG tablet Pt taking OTC ([employer]uru) Calcium Citrate-Vitamin D (CITRACAL + D PO) Pt taking OTC ([employer]) carvedilol (COREG) 12.5 mg, Oral, 2 times [...] Daily Magnesium 400 MG capsule Pt taking OTC(Person[employer]) Melatonin 12 MG tablet 1 tablet, Oral, Nightly Multiple Vitamins-Minerals (BARIATRIC MULTIVITAMINS/IRON PO) Pt taking OTC ([employer]uru) nystatin (Mycostatin) [id number] UNIT/GM powder 1 application , Topical, 2 [...] Anxiety 05/18/2023 Bipolar disorder with severe depression ([facility]) 05/18/2023 Brain lesion Brain vascular malformation Chronic pain disorder Closed fracture of patella 02/04/2018 Colon polyps Constipation Degenerative cervical disc Degenerative lumbar disc Depression ([facility]) 05/18/2023 Diastolic dysfunction Dizziness 05/18/2023 Dysphagia Fibromyalgia Fibromyalgia Gastrocnemius equinus GERD (gastroesophageal reflux disease) Heart murmur Hematoma of right breast Hemiparesis ([facility]) Hemiparesis, right ([facility]) Hemorrhoid int/external hemorrhoids Hiatal hernia Iron deficiency Left foot pain 03/25/2023 Lower extremity edema Mood disorder ([facility]) mixed mood disorder OSMANY (obstructive sleep apnea) Osteoporosis ([facility]) Overactive bladder Pre-diabetes Primary hypertension ([facility]) 03/25/2023 PTSD (post-traumatic stress disorder) ([facility]) Restless leg Right knee pain Right sided weakness S/P bariatric surgery Shingles Slurred speech Stroke ([facility]) 2018 Tenosynovitis, de Quervain Thoracic [...] Relevant Orders Flu vaccine, MDCK, quadrivalent, PF ([id number]) (Flucelvax single dose syringe) Associated Problem(s): Tobacco [...] start this process documented in this encounter [facility] 01-04-2024 History of Present illness Narrative [...] biotin 5 MG tablet Pt taking OTC [employer]) Calcium Citrate-Vitamin D (CITRACAL + D PO) Pt taking OTC [employer]) carvedilol (COREG) 12.5 mg, Oral, 2 times [...] Daily Magnesium 400 MG capsule Pt taking [employer]) Melatonin 12 MG tablet 1 tablet, Oral, Nightly Multiple Vitamins-Minerals (BARIATRIC MULTIVITAMINS/IRON PO) Pt taking OTC [employer]) nystatin (Mycostatin) 401674 UNIT/GM powder 1 application , Topical, 2 [...] apnea) Osteoporosis ([facility]) Overactive bladder Pre-diabetes Primary hypertension ([facility]) 03/25/2023 PTSD (post-traumatic stress disorder) ([facility]) Restless leg Right knee pain Right sided weakness S/P bariatric surgery Shingles Slurred speech Stroke ([facility]) 2018 Tenosynovitis, de Quervain Thoracic [...] MCG/ACT nasal spray documented in this encounter [facility] 12-09-2023 History of Present illness Narrative [...] machine. She is normally seen at the [facility] and was last seen on [...] Degenerative cervical disc Degenerative lumbar disc Depression ([facility]) 05/18/2023 Diastolic dysfunction Dizziness 05/18/2023 Dysphagia Fibromyalgia Fibromyalgia Gastrocnemius equinus GERD (gastroesophageal reflux disease) Heart murmur Hematoma of right breast Hemiparesis ([facility]) Hemiparesis, right ([facility]) Hemorrhoid int/external hemorrhoids Hiatal hernia Iron deficiency Left foot pain 03/25/2023 Lower extremity edema Mood disorder ([facility]) mixed mood disorder OSMANY (obstructive sleep apnea) Osteoporosis ([facility]) Overactive bladder Pre-diabetes Primary hypertension ([facility]) 03/25/2023 PTSD (post-traumatic stress disorder) ([facility]) Restless leg Right knee pain Right sided weakness S/P bariatric surgery Shingles Slurred speech Stroke ([facility]) 2018 Tenosynovitis, de Quervain Thoracic [...] melatonin. She was last seen in the [place] [facility] on June 24, 2023. Since [...] for short term insomnia and not for mcfp insomnia. She is compliant on her download [...] clinic: one year documented in this encounter [facility] 12-08-2023 History of Present illness Narrative [...] Anxiety 05/18/2023 Bipolar disorder with severe depression ([facility]) 05/18/2023 Brain lesion Brain vascular malformation Chronic pain disorder Closed fracture of patella 02/04/2018 Colon polyps Constipation Degenerative cervical disc Degenerative lumbar disc Depression ([facility]) 05/18/2023 Diastolic dysfunction Dizziness 05/18/2023 Dysphagia Fibromyalgia Fibromyalgia Gastrocnemius equinus GERD (gastroesophageal reflux disease) Heart murmur Hematoma of right breast Hemiparesis ([facility]) Hemiparesis, right ([facility]) Hemorrhoid int/external hemorrhoids Hiatal hernia Iron deficiency Left foot pain 03/25/2023 Lower extremity edema Mood disorder ([facility]) mixed mood disorder OSMANY (obstructive sleep apnea) Osteoporosis ([facility]) Overactive bladder Pre-diabetes Primary hypertension ([facility]) 03/25/2023 PTSD (post-traumatic stress disorder) ([facility]) Restless leg Right knee pain Right sided weakness S/P bariatric surgery Shingles Slurred speech Stroke ([facility]) 2018 Tenosynovitis, de Quervain Thoracic [...] Review Audit Reviewed by Festus Baron MA (Return Checker) on 12/08/23 at 1525 Medication Order Taking? Sig Documenting Provider Last Dose Status amLODIPine (Norvasc) 10 MG tablet [id number] Take 1 tablet (10 mg) by mouth Daily Adelaida Carrion NP Active biotin 5 MG tablet [id number] Pt taking OTC ([facility]) Historical Provider, Active Calcium Citrate-Vitamin D (CITRACAL + D PO) [id number] Pt taking OTC (Picurio) Historical Provider, Active Cariprazine HCl (Vraylar) 4.5 MG capsule [id number] Take 4.5 mg by mouth Daily Active carvedilol (Coreg) 12.5 MG tablet [id number] Take 1 tablet (12.5 mg) by mouth in the morning and 1 tablet (12.5 mg) in the evening. Take with meals. Adelaida Carrion NP Active cetirizine (ZyrTEC) 10 MG tablet [id number] Take 1 tablet (10 mg) by mouth Daily Adelaida Carrion NP Active clonazePAM (KlonoPIN) 1 MG tablet [id number] Take 1 tablet (1 mg) by mouth 2 (two) times a day as needed for anxiety Do not start before October 16, 2023. Sonam Brown NP 11/15/23 235 DULoxetine (Cymbalta) [address] capsule [id number] Take 60 mg by mouth in the morning and 60 mg before bedtime. Do not crush or chew.. Active fluconazole (Diflucan) 150 MG tablet [id number] 1 pill every 3 days for a total of 3 doses Adelaida Carrion NP Active fluticasone (Flonase) 50 MCG/ACT nasal spray [id number] Administer 2 sprays into each nostril Daily Adelaida Carrion NP 11/04/23 235 gabapentin (Neurontin) 300 MG capsule [id number] Take 1 capsule (300 mg) by mouth in the morning and 1 capsule (300 mg) before bedtime. Sonam Brown NP Active losartan (Cozaar) 100 MG tablet [id number] Take 1 tablet (100 mg) by mouth Daily Adelaida Carrion NP Active Magnesium 400 MG capsule [id number] Pt taking OTC(PersonSpot) Historical Provider, Active Melatonin 12 MG tablet [id number] Take 1 tablet by mouth at bedtime Active Multiple Vitamins-Minerals (BARIATRIC MULTIVITAMINS/IRON PO) [id number] Pt taking OTC (Gochikuru) Historical Provider, Active nystatin (Mycostatin) 108437 UNIT/GM powder [id number] Apply 1 application topically in the morning and 1 application before bedtime. Adelaida Carrion NP Active omeprazole (PriLOSEC) [address] capsule [id number] Take 1 capsule (20 mg) by mouth in the morning. Take before meals. Adelaida Carrion NP Active rOPINIRole (Requip) 4 MG tablet [id number] Take 1 tablet (4 mg) by mouth at bedtime Sonam Brown NP Active spironolactone (Aldactone) 25 MG tablet [id number] Take 2 tablets (50 mg) by mouth Daily Adelaida Carrion NP Active tiZANidine (Zanaflex) 2 MG tablet [id number] Take 2 mg by mouth every 8 (eight) hours Adelaida Carrion NP Active traZODone (Desyrel) 150 MG tablet [id number] Take 150 mg by mouth at bedtime Active HPI AMS -Patient was admitted to [facility] from the [facility] on 08/24/2023 with acute respiratory failure [...] ankle and great toe bilaterally. Coordination Right: Pniicr-cv-ffmt normal. Rapid alternating movement normal.Left: Qomugy-jh-nrqu normal. Rapid alternating movement normal. Gait Casual gait is normal including stance, stride, and arm swing. Motor Examination RUE Strength deltoid, biceps, triceps, wrist extensors, wrist extensors, wrist flexor, bracer strength 5/5. LUE Strength deltoid, biceps, triceps, wrist extensors, wrist extensors, wrist flexor, bracer strength 5/5. RLE Strength illopsoas, quadriceps, tibialis [...] not all inclusive. Patient was admitted to [facility] from the [facility] on 08/24/2023 with acute respiratory failure [...] of the brain in July 2019 showed mexc-pz-wpppfrxo white matter changes with the largest area [...] make further recommendations documented in this encounter [facility] 05-18-2023 History of Present illness Narrative [...] (BARIATRIC MULTIVITAMINS/IRON PO) Bariatric Multivitamins/Iron nystatin (Mycostatin) [id number] UNIT/GM powder 1 application , Topical, 2 [...] Anxiety 05/18/2023 Bipolar disorder with severe depression ([facility]) 05/18/2023 Brain vascular malformation Chronic pain disorder Colon polyps Constipation Degenerative cervical disc Degenerative lumbar disc Depression ([facility]CC) 05/18/2023 Diastolic dysfunction Dizziness 05/18/2023 Dysphagia Fibromyalgia Gastrocnemius equinus GERD (gastroesophageal reflux disease) Heart murmur Hematoma of right breast Hemiparesis, right ([facility]/HCC) Hemorrhoid int/external hemorrhoids Hiatal hernia Iron deficiency Left foot pain 03/25/2023 Lower extremity edema Mood disorder ([facility]/HCC) mixed mood disorder OSMANY (obstructive sleep apnea) Osteoporosis ([facility]) Overactive bladder Pre-diabetes Primary hypertension ([facility]) 03/25/2023 PTSD (post-traumatic stress disorder) ([facility]) Restless leg Right knee pain Right sided weakness S/P bariatric surgery Shingles Slurred speech Stroke ([facility]) 2018 Tenosynovitis, de Quervain Thoracic [...] [facility] Procedure note [facility] 12-19-2022 Evaluation note Encounter Date Diagnosis Assessment Notes Dec, Skin candidiasis (ICD-10 - B37.2) Drink plenty fluids, get plenty of rest. Continue home medications as prescribed. Take the Diflucan as prescribed until gone. 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 She reports moving to [place] from [place] in 2011 and was then diagnosed with bipolar disorder at [facility] in [place], where she still follows with a therapist.? Shereports that she has been with 7 therapists in the last 9 years and is currentlycompleting EMDR with her current therapist. Past hospitalizations: Her most recent hospitalization was 5 years ago [facility] in [place] for the same feeling she is experiencing [...] her , son and his girlfriend, and [facility].? Reports a situation in which they are attempting to seek custody of the grandson from the mother of the child.? She reports not feeling safe at homewith herself but feels safe when her family is home. Employment: Patient has not worked since 2010 due to her fibromyalgia.? 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 (insert date/time [...] Eduardo Monk MD> 11/20/22 0638 [facility] Work Phone: 1(829) 180-953108-16-2023 Progress note Author Eduardo bautista [facility] November 19, 2022 6:25am Note Date/Time November 19, 2022 6: 25am [facility] [address] [place] [address] Psychiatry Progress Note Signed Patient: Michelle Be MR#: [id number] : 1960 Acct:[id number] Age/Sex: 61 / F Adm Date: 3 Loc: Room: [address] [place] [address] Type : ADM IN Attending Dr: Gaudencio [...] factors at that time Documented By: Eduardo oMnk MD 3 0621 Signed By: <Electronically signed by Eduardo Monk MD> 11/19/22 0625 [facility] Work Phone: 1(430) 998-691908-15-2023 Progress note Author Eduardo bautista [facility] November 18, 2022 11:01am Note Date/Time November 18, 2022 10 :11am [facility] [address] [place] [address] Psychiatry Progress Note Signed Patient: Michelle Be MR#: [id number] : 1960 Acct:[id number] Age/Sex: 61 / F Adm Date: 3 Loc: Room: 1L9251-1 Type : ADM IN Attending Dr: Gaudencio [...] by requesting a schedule 2 referring to [facility] for pain management specifically every 4-6 hours [...] signed by MD DA Rangel> 11/18/22 1011 [facility] Work Phone: 1(327) 522-720708-14-2023 History and physical note Author Eduardo bautista [facility] November 17, 2022 12:48pm Note Date/Time November 17, 2022 12 :48pm [facility] [address] [place] [address] Psychiatry H&P Signed Patient: Michelle Be MR#: [id number] : 1960 Acct:[id number] Age/Sex: 61 / F Adm Date: 3 Loc: Room: [address] [place] [address] Type: ADM IN Attending Dr: Gaudencio Monk [...] at that time. She reports moving to [place] from [place] in 2011 and was then diagnosed with bipolar disorder at [facility] in [place], where she still follows with a therapist. Shereports that she has been with 7 therapists in the last 9 years and is currentlycompleting EMDR with her current therapist. Past hospitalizations: Her most recent hospitalization was 5 years ago [facility] in [place] for the same feeling she is experiencing [...] signed by Eduardo Monk MD> 11/17/22 1248 [facility] Work Phone: 1(602) 297-264303-23-2023 NoteCONSULTATION CONSULTATION DATE: 06/26/2022 To: Nurse Carrion [...] L5-S1 facet joint injection under fluoroscopic guidance.[id number] NotePROCEDURE: XR SHOULDER RT 2V or > [...] Electronically authenticated by: KINGSLEY CLEMENTS Date: 2022-05-09 09:21[facility]01-23-2023 NotePROCEDURE: XR WRIST LT MIN 3 [...] Electronically authenticated by: KINGSLEY CLEMENTS Date: 2022-04-28 13:31[facility]12-29-2022 NoteCONSULTATION CONSULTATION DATE: 04/03/2022 HISTORY OF [...] her in three months, unless otherwise indicated.[facility] [id number] NoteCONSULTATION CONSULTATION DATE: 01/02/2022 This is a [...] [facility]o to [facility] in [place] for the compounded cream. She needs a [...] in three months' time unless otherwise indicated.[facility] [id number] NotePROCEDURE: XR ANKLE RT MIN 3 VIEWS, [...] Electronically authenticated by: KINGSLEY CLEMENTS Date: 2022-01-01 13:11[facility]09-28-2022 NotePROCEDURE: XR ANKLE RT MIN 3 [...] Electronically authenticated by: KINGSLEY CLEMENTS Date: 2022-01-01 13:11[facility]08-18-2022 NotePROCEDURE: XR FOOT RT MIN 3 VIEWS HISTORY: Pain in right foot , chronic COMPARISON: XR foot right 2020 FINDINGS: BONES:No fracture, dislocation, bone lesion. Small calcaneal degenerative enthesophytes. SOFT TISSUES:No visible soft tissue swelling. EFFUSION:None visible. OTHER: Negative. IMPRESSION: 1. No acute bone abnormality or significant degenerative joint disease. Electronically authenticated by: KINGSLEY CLEMENTS Date: 2021-11-21 16:13[facility]06-30-2022 NoteCONSULTATION CONSULTATION DATE: 10/03/2021 This is [...] patient agrees with the plan of care. [facility] Signed and Approved by: ZELDA MCDANIEL . 10/10/2021 10:22:00[facility] Diagnosis Onset Date Resolution Status Allergies acute Bipolar 2 disorder acute Hypertension acute Morbid obesity with BMI of 45.0-49.9, adult acute OSMANY (obstructive sleep apnea) acute Restless legs syndrome acute [facility] Work Phone: Evaluation noteNo [employer] Other Evaluation noteNo assessment information available [facility] Work Phone: Evaluation note* Diagnosis [...] wall, initial encounter documented in this encounter [facility]* Diagnosis Acute cystitis with hematuria- Primary documented in this encounter [facility]* Diagnosis Left foot pain- Primary Pain in soft tissues of limb Primary hypertension (CMS/HCC) Unspecified essential hypertension Class 3 severe obesity due to excess calories without serious comorbidity with body mass index (BMI) of 45.0 to 49.9 in adult ([facility]) Encounter for annual wellness visit (AWV) in Medicare patient- Primary OSMANY (obstructive sleep apnea) Obstructive sleep apnea (adult) (pediatric) Chronic pain disorder Chronic pain syndrome Gastroesophageal reflux disease, unspecified whether esophagitis present Overactive bladder Hypertonicity of bladder Lower extremity edema Edema Pre-diabetes Other abnormal glucose Morbid obesity ([facility]) Morbid obesity Yeast infection of the skin Candidiasis of skin and nails Tobacco dependence Tobacco use disorder Mood disorder ([facility]) Unspecified episodic mood disorder Primary hypertension ([facility]) Unspecified essential hypertension Left hip pain Pain in joint, pelvic region and thigh Open wound of anterior abdominal wall, initial encounter Primary hypertension ([facility])- Primary Unspecified essential hypertension Yeast infection of the skin Candidiasis of skin and nails Morbid obesity ([facility]) Morbid obesity Primary hypertension ([facility])- Primary Unspecified essential hypertension Encounter for screening mammogram for malignant neoplasm of breast Gastroesophageal reflux disease, unspecified whether esophagitis present Acute gout of right foot, unspecified cause Osteoporosis, unspecified osteoporosis type, unspecified pathological fracture presence ([facility]) Morbid obesity ([facility]) Morbid obesity Pre-diabetes Other abnormal glucose Anemia, unspecified type Vitamin deficiency Unspecified vitamin deficiency Post-viral cough syndrome Primary hypertension ([facility])- Primary Unspecified essential hypertension Allergic rhinitis, unspecified Acute cough Morbid obesity ([facility]) Morbid obesity Former cigarette smoker Personal history of tobacco use, presenting hazards to health Toxic metabolic encephalopathy- Primary Hemiparesis, right ([facility]) Unspecified hemiplegia affecting unspecified side Acute respiratory failure with hypoxia ([facility]) Heart murmur Undiagnosed cardiac murmurs Primary hypertension ([facility]) Unspecified essential hypertension Morbid obesity ([facility]) Morbid obesity Bipolar disorder with severe depression ([facility]) Slurred speech Other speech disturbance Bilateral lower extremity edema- Primary Primary hypertension ([facility]) Unspecified essential hypertension Lower extremity edema Edema Essential (primary) hypertension ([facility]) Unspecified essential hypertension Gastro-esophageal reflux disease without esophagitis Allergic rhinitis, unspecified Bilateral lower extremity edema- Primary Morbid (severe) obesity due to excess calories ([facility]) Body mass index (BMI) 45.0-49.9, adult ([facility]) Pre-diabetes Other abnormal glucose Bilateral lower extremity edema- Primary Essential (primary) hypertension (CMS/HCC) Unspecified essential hypertension Allergic rhinitis, unspecified OSMANY (obstructive sleep apnea) Obstructive sleep apnea (adult) (pediatric) Primary hypertension ([facility]/HCC) Unspecified essential hypertension Morbid obesity ([facility]) Morbid obesity Acute cystitis without hematuria- Primary Tobacco dependence Tobacco use disorder Needs flu shot Need for prophylactic vaccination and inoculation against influenza Morbid obesity (CMS/HCC) Morbid obesity documented in this encounter [facility]* Diagnosis Left foot pain- Primary Pain in soft tissues of limb Primary hypertension ([facility]) Unspecified essential hypertension Class 3 severe obesity due to excess calories without serious comorbidity with body mass index (BMI) of 45.0 to 49.9 in adult ([facility]) Encounter for annual wellness visit (AWV) in Medicare patient- Primary OSMANY (obstructive sleep apnea) Obstructive sleep apnea (adult) (pediatric) Chronic pain disorder Chronic pain syndrome Gastroesophageal reflux disease, unspecified whether esophagitis present Overactive bladder Hypertonicity of bladder Lower extremity edema Edema Pre-diabetes Other abnormal glucose Morbid obesity ([facility]) Morbid obesity Yeast infection of the skin Candidiasis of skin and nails Tobacco dependence Tobacco use disorder Mood disorder (CMS/HCC) Unspecified episodic mood disorder Primary hypertension ([facility]) Unspecified essential hypertension Left hip pain Pain in joint, pelvic region and thigh Open wound of anterior abdominal wall, initial encounter Primary hypertension ([facility]/HCC)- Primary Unspecified essential hypertension Yeast infection of the skin Candidiasis of skin and nails Morbid obesity ([facility]) Morbid obesity Primary hypertension ([facility]/HCC)- Primary Unspecified essential hypertension Encounter for screening mammogram for malignant neoplasm of breast Gastroesophageal reflux disease, unspecified whether esophagitis present Acute gout of right foot, unspecified cause Osteoporosis, unspecified osteoporosis type, unspecified pathological fracture presence ([facility]) Morbid obesity ([facility]) Morbid obesity Pre-diabetes Other abnormal glucose Anemia, unspecified type Vitamin deficiency Unspecified vitamin deficiency Post-viral cough syndrome Primary hypertension (CMS/HCC)- Primary Unspecified essential hypertension Allergic rhinitis, unspecified Acute cough Morbid obesity ([facility]) Morbid obesity Former cigarette smoker Personal history of tobacco use, presenting hazards to health Toxic metabolic encephalopathy- Primary Hemiparesis, right (CMS/[facility]) Unspecified hemiplegia affecting unspecified side Acute respiratory failure with hypoxia ([facility]) Heart murmur Undiagnosed cardiac murmurs Primary hypertension ([facility]) Unspecified essential hypertension Morbid obesity ([facility]) Morbid obesity Bipolar disorder with severe depression ([facility]) Slurred speech Other speech disturbance Bilateral lower extremity edema- Primary Primary hypertension ([facility]) Unspecified essential hypertension Lower extremity edema Edema Essential (primary) hypertension ([facility]) Unspecified essential hypertension Gastro-esophageal reflux disease without esophagitis Allergic rhinitis, unspecified Bilateral lower extremity edema- Primary Morbid (severe) obesity due to excess calories ([facility]) Body mass index (BMI) 45.0-49.9, adult ([facility]) Pre-diabetes Other abnormal glucose Bilateral lower extremity edema- Primary Essential (primary) hypertension ([facility]) Unspecified essential hypertension Allergic rhinitis, unspecified OSMANY (obstructive sleep apnea) Obstructive sleep apnea (adult) (pediatric) Primary hypertension ([facility]) Unspecified essential hypertension Morbid obesity ([facility]) Morbid obesity Acute cystitis without hematuria- Primary Tobacco dependence Tobacco use disorder Needs flu shot Need for prophylactic vaccination and inoculation against influenza Morbid obesity ([facility]) Morbid obesity Restless leg Restless legs syndrome (RLS) documented in this encounter [facility] HealthcareEvaluation note* Diagnosis Left foot pain- Primary Pain in soft tissues of limb Primary hypertension ([facility]) Unspecified essential hypertension Class 3 severe obesity due to excess calories without serious comorbidity with body mass index (BMI) of 45.0 to 49.9 in adult ([facility]) Encounter for annual wellness visit (AWV) in Medicare patient- Primary OSMANY (obstructive sleep apnea) Obstructive sleep apnea (adult) (pediatric) Chronic pain disorder Chronic pain syndrome Gastroesophageal reflux disease, unspecified whether esophagitis present Overactive bladder Hypertonicity of bladder Lower extremity edema Edema Pre-diabetes Other abnormal glucose Morbid obesity ([facility]) Morbid obesity Yeast infection of the skin Candidiasis of skin and nails Tobacco dependence Tobacco use disorder Mood disorder ([facility]) Unspecified episodic mood disorder Primary hypertension ([facility]) Unspecified essential hypertension Left hip pain Pain in joint, pelvic region and thigh Open wound of anterior abdominal wall, initial encounter Primary hypertension ([facility])- Primary Unspecified essential hypertension Yeast infection of the skin Candidiasis of skin and nails Morbid obesity ([facility]) Morbid obesity Primary hypertension ([facility])- Primary Unspecified essential hypertension Encounter for screening mammogram for malignant neoplasm of breast Gastroesophageal reflux disease, unspecified whether esophagitis present Acute gout of right foot, unspecified cause Osteoporosis, unspecified osteoporosis type, unspecified pathological fracture presence ([facility]) Morbid obesity ([facility]) Morbid obesity Pre-diabetes Other abnormal glucose Anemia, unspecified type Vitamin deficiency Unspecified vitamin deficiency Post-viral cough syndrome Primary hypertension ([facility])- Primary Unspecified essential hypertension Allergic rhinitis, unspecified Acute cough Morbid obesity ([facility]) Morbid obesity Former cigarette smoker Personal history of tobacco use, presenting hazards to health Toxic metabolic encephalopathy- Primary Hemiparesis, right ([facility] Unspecified hemiplegia affecting unspecified side Acute respiratory failure with hypoxia ([facility] Heart murmur Undiagnosed cardiac murmurs Primary hypertension ([facility]) [facility]specified essential hypertension Morbid obesity ([facility] Morbid obesity Bipolar disorder with severe depression ([facility] Slurred speech Other speech disturbance Bilateral lower extremity edema- Primary Primary hypertension ([facility]) Unspecified essential hypertension Lower extremity edema Edema Essential (primary) hypertension ([facility] Unspecified essential hypertension Gastro-esophageal reflux disease without esophagitis Allergic rhinitis, unspecified Bilateral lower extremity edema- Primary Morbid (severe) obesity due to excess calories ([facility] Body mass index (BMI) 45.0-49.9, adult ([facility] Pre-diabetes Other abnormal glucose Bilateral lower extremity edema- Primary Essential (primary) hypertension ([facility]) Unspecified essential hypertension Allergic rhinitis, unspecified OSMANY (obstructive sleep apnea) Obstructive sleep apnea (adult) (pediatric) Primary hypertension ([facility]) Unspecified essential hypertension Morbid obesity [place] Morbid obesity Acute cystitis without hematuria- Primary Tobacco dependence Tobacco use disorder Needs flu shot Need for prophylactic vaccination and inoculation against influenza Morbid obesity ([facility]) Morbid obesity Well woman exam with routine gynecological exam- Primary Routine gynecological examination Morbid obesity ([facility]) Morbid obesity documented in this encounter [facility] HealthcareEvaluation note* Diagnosis Left foot pain- Primary Pain in soft tissues of limb Primary hypertension ([facility]) Unspecified essential hypertension Class 3 severe obesity due to excess calories without serious comorbidity with body mass index (BMI) of 45.0 to 49.9 in adult ([facility] Encounter for annual wellness visit (AWV) in [...] Tobacco dependence Tobacco use disorder Mood disorder ([facility]) Unspecified episodic mood disorder Primary hypertension ([facility]) Unspecified essential hypertension Left hip pain Pain in joint, pelvic region and thigh Open wound of anterior abdominal wall, initial encounter Primary hypertension ([facility])- Primary Unspecified essential hypertension Yeast infection of the skin Candidiasis of skin and nails Morbid obesity ([facility]) Morbid obesity Primary hypertension ([facility])- Primary Unspecified essential hypertension Encounter for screening mammogram for malignant neoplasm of breast Gastroesophageal reflux disease, unspecified whether esophagitis present Acute gout of right foot, unspecified cause Osteoporosis, unspecified osteoporosis type, unspecified pathological fracture presence ([facility]) Morbid obesity ([facility]) Morbid obesity Pre-diabetes Other abnormal glucose Anemia, unspecified type Vitamin deficiency Unspecified vitamin deficiency Post-viral cough syndrome Primary hypertension ([facility])- Primary Unspecified essential hypertension Allergic rhinitis, unspecified Acute cough Morbid obesity ([facility]) Morbid obesity Former cigarette smoker Personal history of tobacco use, presenting hazards to health Toxic metabolic encephalopathy- Primary Hemiparesis, right ([facility]) Unspecified hemiplegia affecting unspecified side Acute respiratory failure with hypoxia ([facility]) Heart murmur Undiagnosed cardiac murmurs Primary hypertension ([facility]) [facility]specified essential hypertension Morbid obesity ([facility]) Morbid obesity Bipolar disorder with severe depression ([facility]) Slurred speech Other speech disturbance Bilateral lower extremity edema- Primary Primary hypertension ([facility]) Unspecified essential hypertension Lower extremity edema Edema Essential (primary) hypertension ([facility]) Unspecified essential hypertension Gastro-esophageal reflux disease without esophagitis Allergic rhinitis, unspecified Bilateral lower extremity edema- Primary Morbid (severe) obesity due to excess calories ([facility]) Body mass index (BMI) 45.0-49.9, adult ([facility]) Pre-diabetes Other abnormal glucose Bilateral lower extremity edema- Primary Essential (primary) hypertension ([facility]) Unspecified essential hypertension Allergic rhinitis, unspecified OSMANY (obstructive sleep apnea) Obstructive sleep apnea (adult) (pediatric) Primary hypertension ([facility]) Unspecified essential hypertension Morbid obesity ([facility]) Morbid obesity Acute cystitis without hematuria- Primary Tobacco dependence Tobacco use disorder Needs flu shot Need for prophylactic vaccination and inoculation against influenza Morbid obesity ([facility]/HCC) Morbid obesity Well woman exam with routine gynecological exam- Primary Routine gynecological examination Morbid obesity (CMS/HCC) Morbid obesity Essential (primary) hypertension ([facility]) Unspecified essential hypertension Allergic rhinitis, unspecified documented in this encounter [facility] HealthcareEvaluation note* Diagnosis Left foot pain- Primary Pain in soft tissues of limb Primary hypertension ([facility]) Unspecified essential hypertension Class 3 severe obesity due to excess calories without serious comorbidity with body mass index (BMI) of 45.0 to 49.9 in adult ([facility]) Encounter for annual wellness visit (AWV) in Medicare patient- Primary OSMANY (obstructive sleep apnea) Obstructive sleep apnea (adult) (pediatric) Chronic pain disorder Chronic pain syndrome Gastroesophageal reflux disease, unspecified whether esophagitis present Overactive bladder Hypertonicity of bladder Lower extremity edema Edema Pre-diabetes Other abnormal glucose Morbid obesity ([facility]) Morbid obesity Yeast infection of the skin Candidiasis of skin and nails Tobacco dependence Tobacco use disorder Mood disorder ([facility]) Unspecified episodic mood disorder Primary hypertension ([facility]) Unspecified essential hypertension Left hip pain Pain in joint, pelvic region and thigh Open wound of anterior abdominal wall, initial encounter Primary hypertension ([facility])- Primary Unspecified essential hypertension Yeast infection of the skin Candidiasis of skin and nails Morbid obesity ([facility]) Morbid obesity Primary hypertension ([facility])- Primary Unspecified essential hypertension Encounter for screening mammogram for malignant neoplasm of breast Gastroesophageal reflux disease, unspecified whether esophagitis present Acute gout of right foot, unspecified cause Osteoporosis, unspecified osteoporosis type, unspecified pathological fracture presence ([facility]) Morbid obesity ([facility]) Morbid obesity Pre-diabetes Other abnormal glucose Anemia, unspecified type Vitamin deficiency Unspecified vitamin deficiency Post-viral cough syndrome Primary hypertension ([facility])- Primary Unspecified essential hypertension Allergic rhinitis, unspecified Acute cough Morbid obesity ([facility]) Morbid obesity Former cigarette smoker Personal history of tobacco use, presenting hazards to health Toxic metabolic encephalopathy- Primary Hemiparesis, right ([facility]) Unspecified hemiplegia affecting unspecified side Acute respiratory failure with hypoxia ([facility]) Heart murmur Undiagnosed cardiac murmurs Primary hypertension ([facility] Unspecified essential hypertension Morbid obesity ([facility]) Morbid obesity Bipolar disorder with severe depression ([facility]) Slurred speech Other speech disturbance Bilateral lower extremity edema- Primary Primary hypertension (CMS/HCC) Unspecified essential hypertension Lower extremity edema Edema Essential (primary) hypertension ([facility]) Unspecified essential hypertension Gastro-esophageal reflux disease without esophagitis Allergic rhinitis, unspecified Bilateral lower extremity edema- Primary Morbid (severe) obesity due to excess calories ([facility]) Body mass index (BMI) 45.0-49.9, adult ([facility]) Pre-diabetes Other abnormal glucose Bilateral lower extremity edema- Primary Essential (primary) hypertension ([facility]) Unspecified essential hypertension Allergic rhinitis, unspecified OSMANY (obstructive sleep apnea) Obstructive sleep apnea (adult) (pediatric) Primary hypertension ([facility]) Unspecified essential hypertension Morbid obesity ([facility]) Morbid obesity Acute cystitis without hematuria- Primary Tobacco dependence Tobacco use disorder Needs flu shot Need for prophylactic vaccination and inoculation against influenza Morbid obesity ([facility]) Morbid obesity Well woman exam with routine gynecological exam- Primary Routine gynecological examination Morbid obesity ([facility]) Morbid obesity Allergic rhinitis, unspecified documented in this encounter [facility] HealthcareEvaluation note* Diagnosis Left foot pain- Primary Pain in soft tissues of limb Primary hypertension ([facility]) Unspecified essential hypertension Class 3 severe obesity due to excess calories without serious comorbidity with body mass index (BMI) of 45.0 to 49.9 in adult ([facility]) Encounter for annual wellness visit (AWV) in Medicare patient- Primary OSMANY (obstructive sleep apnea) Obstructive sleep apnea (adult) (pediatric) Chronic pain disorder Chronic pain syndrome Gastroesophageal reflux disease, unspecified whether esophagitis present Overactive bladder Hypertonicity of bladder Lower extremity edema Edema Pre-diabetes Other abnormal glucose Morbid obesity ([facility]) Morbid obesity Yeast infection of the skin Candidiasis of skin and nails Tobacco dependence Tobacco use disorder Mood disorder ([facility]) Unspecified episodic mood disorder Primary hypertension ([facility]) Unspecified essential hypertension Left hip pain Pain in joint, pelvic region and thigh Open wound of anterior abdominal wall, initial encounter Primary hypertension ([facility])- Primary Unspecified essential hypertension Yeast infection of the skin Candidiasis of skin and nails Morbid obesity ([facility]) Morbid obesity Primary hypertension ([facility])- Primary Unspecified essential hypertension Encounter for screening mammogram for malignant neoplasm of breast Gastroesophageal reflux disease, unspecified whether esophagitis present Acute gout of right foot, unspecified cause Osteoporosis, unspecified osteoporosis type, unspecified pathological fracture presence ([facility]) Morbid obesity ([facility]) Morbid obesity Pre-diabetes Other abnormal glucose Anemia, unspecified type Vitamin deficiency Unspecified vitamin deficiency Post-viral cough syndrome Primary hypertension ([facility])- Primary Unspecified essential hypertension Allergic rhinitis, unspecified Acute cough Morbid obesity ([facility]) Morbid obesity Former cigarette smoker Personal history of tobacco use, presenting hazards to health Toxic metabolic encephalopathy- Primary Hemiparesis, right ([facility]) Unspecified hemiplegia affecting unspecified side Acute respiratory failure with hypoxia ([facility]) Heart murmur Undiagnosed cardiac murmurs Primary hypertension ([facility] Unspecified essential hypertension Morbid obesity ([facility]) Morbid obesity Bipolar disorder with severe depression ([facility]) Slurred speech Other speech disturbance Bilateral lower extremity edema- Primary Primary hypertension ([facility]) Unspecified essential hypertension Lower extremity edema Edema Essential (primary) hypertension ([facility]) Unspecified essential hypertension Gastro-esophageal reflux disease without esophagitis Allergic rhinitis, unspecified Bilateral lower extremity edema- Primary Morbid (severe) obesity due to excess calories ([facility]) Body mass index (BMI) 45.0-49.9, adult ([facility] Pre-diabetes Other abnormal glucose Bilateral lower extremity edema- Primary Essential (primary) hypertension ([facility]) Unspecified essential hypertension Allergic rhinitis, unspecified OSMANY (obstructive sleep apnea) Obstructive sleep apnea (adult) (pediatric) Primary hypertension ([facility]) Unspecified essential hypertension Morbid obesity ([facility]) Morbid obesity Acute cystitis without hematuria- Primary Tobacco dependence Tobacco use disorder Needs flu shot Need for prophylactic vaccination and inoculation against influenza Morbid obesity ([facility]) Morbid obesity Well woman exam with routine gynecological exam- Primary Routine gynecological examination Morbid obesity ([facility]) Morbid obesity Yeast infection of the skin Candidiasis of skin and nails documented in this encounter [facility]* Diagnosis Left foot pain- Primary Pain in soft tissues of limb Primary hypertension ([facility]) Unspecified essential hypertension Class 3 severe obesity due to excess calories without serious comorbidity with body mass index (BMI) of 45.0 to 49.9 in adult ([facility]) Encounter for annual wellness visit (AWV) in Medicare patient- Primary OSMANY (obstructive sleep apnea) Obstructive sleep apnea (adult) (pediatric) Chronic pain disorder Chronic pain syndrome Gastroesophageal reflux disease, unspecified whether esophagitis present Overactive bladder Hypertonicity of bladder Lower extremity edema Edema Pre-diabetes Other abnormal glucose Morbid obesity ([facility]) Morbid obesity Yeast infection of the skin Candidiasis of skin and nails Tobacco dependence Tobacco use disorder Mood disorder ([facility]) Unspecified episodic mood disorder Primary hypertension ([facility]) Unspecified essential hypertension Left hip pain Pain in joint, pelvic region and thigh Open wound of anterior abdominal wall, initial encounter Primary hypertension ([facility])- Primary Unspecified essential hypertension Yeast infection of the skin Candidiasis of skin and nails Morbid obesity ([facility]) Morbid obesity Primary hypertension ([facility])- Primary Unspecified essential hypertension Encounter for screening mammogram for malignant neoplasm of breast Gastroesophageal reflux disease, unspecified whether esophagitis present Acute gout of right foot, unspecified cause Osteoporosis, unspecified osteoporosis type, unspecified pathological fracture presence ([facility]) Morbid obesity ([facility]) Morbid obesity Pre-diabetes Other abnormal glucose Anemia, unspecified type Vitamin deficiency Unspecified vitamin deficiency Post-viral cough syndrome Primary hypertension ([facility])- Primary Unspecified essential hypertension Allergic rhinitis, unspecified Acute cough Morbid obesity ([facility]) Morbid obesity Former cigarette smoker Personal history of tobacco use, presenting hazards to health Toxic metabolic encephalopathy- Primary Hemiparesis, right ([facility]) Unspecified hemiplegia affecting unspecified side Acute respiratory failure with hypoxia ([facility]) Heart murmur Undiagnosed cardiac murmurs Primary hypertension ([facility]) Unspecified essential hypertension Morbid obesity ([facility]) Morbid obesity Bipolar disorder with severe depression ([facility]) Slurred speech Other speech disturbance Bilateral lower extremity edema- Primary Primary hypertension ([facility]) Unspecified essential hypertension Lower extremity edema Edema Essential (primary) hypertension ([facility]) Unspecified essential hypertension Gastro-esophageal reflux disease without esophagitis Allergic rhinitis, unspecified Bilateral lower extremity edema- Primary Morbid (severe) obesity due to excess calories ([facility]) Body mass index (BMI) 45.0-49.9, adult ([facility]) Pre-diabetes Other abnormal glucose Bilateral lower extremity edema- Primary Essential (primary) hypertension ([facility]) Unspecified essential hypertension Allergic rhinitis, unspecified OSMANY (obstructive sleep apnea) Obstructive sleep apnea (adult) (pediatric) Primary hypertension ([facility]) Unspecified essential hypertension Morbid obesity ([facility]) Morbid obesity Acute cystitis without hematuria- Primary Tobacco dependence Tobacco use disorder Needs flu shot Need for prophylactic vaccination and inoculation against influenza Morbid obesity ([facility]/HCC) Morbid obesity Well woman exam with routine gynecological exam- Primary Routine gynecological examination Morbid obesity ([facility]/HCC) Morbid obesity Metabolic encephalopathy- Primary OSMANY (obstructive sleep apnea) Obstructive sleep apnea (adult) (pediatric) Restless leg Restless legs syndrome (RLS) 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 ([facility]) Degeneration of intervertebral disc of lumbar region with discogenic back pain and lower extremity pain Memory change Memory loss documented in this encounter [facility]* Diagnosis Left foot pain- Primary Pain in soft tissues of limb Primary hypertension (CMS/[facility]) Unspecified essential hypertension Class 3 severe obesity due to excess calories without serious comorbidity with body mass index (BMI) of 45.0 to 49.9 in adult ([facility]) Encounter for annual wellness visit [...] Tobacco dependence Tobacco use disorder Mood disorder ([facility]) Unspecified episodic mood disorder Primary hypertension ([facility]/HCC) Unspecified essential hypertension Left hip pain Pain in joint, pelvic region and thigh Open wound of anterior abdominal wall, initial encounter Primary hypertension ([facility]/HCC)- Primary Unspecified essential hypertension Yeast infection of the skin Candidiasis of skin and nails Morbid obesity (CMS/HCC) Morbid obesity Primary hypertension ([facility]/HCC)- Primary Unspecified essential hypertension Encounter for screening mammogram for malignant neoplasm of breast Gastroesophageal reflux disease, unspecified whether esophagitis present Acute gout of right foot, unspecified cause Osteoporosis, unspecified osteoporosis type, unspecified pathological fracture presence ([facility]) Morbid obesity (CMS/HCC) Morbid obesity Pre-diabetes Other abnormal glucose Anemia, unspecified type Vitamin deficiency Unspecified vitamin deficiency Post-viral cough syndrome Primary hypertension (CMS/HCC)- Primary Unspecified essential hypertension Allergic rhinitis, unspecified Acute cough Morbid obesity (CMS/HCC) Morbid obesity Former cigarette smoker Personal history of tobacco use, presenting hazards to health Toxic metabolic encephalopathy- Primary Hemiparesis, right (CMS/[facility]) Unspecified hemiplegia affecting unspecified side Acute respiratory failure with hypoxia (CMS/[facility]) Heart murmur Undiagnosed cardiac murmurs Primary hypertension (CMS/HCC) Unspecified essential hypertension Morbid obesity (CMS/HCC) Morbid obesity Bipolar disorder with severe depression (CMS/[facility]) Slurred speech Other speech disturbance Bilateral lower extremity edema- Primary Primary hypertension ([facility]) Unspecified essential hypertension Lower extremity edema Edema Essential (primary) hypertension ([facility]) Unspecified essential hypertension Gastro-esophageal reflux disease without esophagitis Allergic rhinitis, unspecified Bilateral lower extremity edema- Primary Morbid (severe) obesity due to excess calories ([facility]) Body mass index (BMI) 45.0-49.9, adult ([facility]) Pre-diabetes Other abnormal glucose Bilateral lower extremity edema- Primary Essential (primary) hypertension ([facility]) Unspecified essential hypertension Allergic rhinitis, unspecified OSMANY (obstructive sleep apnea) Obstructive sleep apnea (adult) (pediatric) Primary hypertension ([facility]) Unspecified essential hypertension Morbid obesity ([facility]) Morbid obesity Acute cystitis without hematuria- Primary Tobacco dependence Tobacco use disorder Needs flu shot Need for prophylactic vaccination and inoculation against influenza Morbid obesity ([facility]) Morbid obesity Well woman exam with routine gynecological exam- Primary Routine gynecological examination Morbid obesity (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) OSMANY (obstructive sleep apnea) Obstructive sleep apnea (adult) (pediatric) documented in this encounter [facility]* Diagnosis Left foot pain- Primary Pain in soft tissues of limb Primary hypertension ([facility]) Unspecified essential hypertension Class 3 severe obesity due to excess calories without serious comorbidity with body mass index (BMI) of 45.0 to 49.9 in adult ([facility]) Encounter for annual wellness visit (AWV) in Medicare patient- Primary OSMANY (obstructive sleep apnea) Obstructive sleep apnea (adult) (pediatric) Chronic pain disorder Chronic pain syndrome Gastroesophageal reflux disease, unspecified whether esophagitis present Overactive bladder Hypertonicity of bladder Lower extremity edema Edema Pre-diabetes Other abnormal glucose Morbid obesity ([facility]) Morbid obesity Yeast infection of the skin Candidiasis of skin and nails Tobacco dependence Tobacco use disorder Mood disorder ([facility]) Unspecified episodic mood disorder Primary hypertension ([facility]) Unspecified essential hypertension Left hip pain Pain in joint, pelvic region and thigh Open wound of anterior abdominal wall, initial encounter Primary hypertension ([facility])- Primary Unspecified essential hypertension Yeast infection of the skin Candidiasis of skin and nails Morbid obesity ([facility]) Morbid obesity Primary hypertension ([facility])- Primary Unspecified essential hypertension Encounter for screening mammogram for malignant neoplasm of breast Gastroesophageal reflux disease, unspecified whether esophagitis present Acute gout of right foot, unspecified cause Osteoporosis, unspecified osteoporosis type, unspecified pathological fracture presence ([facility]) Morbid obesity ([facility]) Morbid obesity Pre-diabetes Other abnormal glucose Anemia, unspecified type Vitamin deficiency Unspecified vitamin deficiency Post-viral cough syndrome Primary hypertension ([facility])- Primary Unspecified essential hypertension Allergic rhinitis, unspecified Acute cough Morbid obesity ([facility]) Morbid obesity Former cigarette smoker Personal history of tobacco use, presenting hazards to health Toxic metabolic encephalopathy- Primary Hemiparesis, right ([facility]) Unspecified hemiplegia affecting unspecified side Acute respiratory failure with hypoxia ([facility]) Heart murmur Undiagnosed cardiac murmurs Primary hypertension ([facility] Unspecified essential hypertension Morbid obesity ([facility]) Morbid obesity Bipolar disorder with severe depression ([facility]) Slurred speech Other speech disturbance Bilateral lower extremity edema- Primary Primary hypertension ([facility]) Unspecified essential hypertension Lower extremity edema Edema Essential (primary) hypertension ([facility]) Unspecified essential hypertension Gastro-esophageal reflux disease without esophagitis Allergic rhinitis, unspecified Bilateral lower extremity edema- Primary Morbid (severe) obesity due to excess calories ([facility]) Body mass index (BMI) 45.0-49.9, adult ([facility]) Pre-diabetes Other abnormal glucose Bilateral lower extremity edema- Primary Essential (primary) hypertension ([facility]) Unspecified essential hypertension Allergic rhinitis, unspecified OSMANY (obstructive sleep apnea) Obstructive sleep apnea (adult) (pediatric) Primary hypertension ([facility]) Unspecified essential hypertension Morbid obesity ([facility]) Morbid obesity Acute cystitis without hematuria- Primary Tobacco dependence Tobacco use disorder Needs flu shot Need for prophylactic vaccination and inoculation against influenza Morbid obesity ([facility]) Morbid obesity Well woman exam with routine gynecological exam- Primary Routine gynecological examination Morbid obesity ([facility]) Morbid obesity Altered mental status, unspecified altered mental status type- Primary Memory change Memory loss Concentration deficit 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 ([facility]) PTSD (post-traumatic stress disorder) ([facility]) Posttraumatic stress disorder Bipolar affective disorder, remission status unspecified ([facility]) Family history of dementia Family [...] Edema Pre-diabetes Other abnormal glucose Morbid obesity ([facility]/HCC) Morbid obesity Yeast infection of the skin Candidiasis of skin and nails Tobacco dependence Tobacco use disorder Mood disorder ([facility]/HCC) Unspecified episodic mood disorder Primary hypertension ([facility]) Unspecified essential hypertension Left hip pain Pain in joint, pelvic region and thigh Open wound of anterior abdominal wall, initial encounter Primary hypertension ([facility]/HCC)- Primary Unspecified essential hypertension Yeast infection of the skin Candidiasis of skin and nails Morbid obesity ([facility]/HCC) Morbid obesity Primary hypertension ([facility])- Primary Unspecified essential hypertension Allergic rhinitis, unspecified Acute cough Morbid obesity ([facility]) Morbid obesity Former cigarette smoker Personal history of tobacco use, presenting hazards to health Toxic metabolic encephalopathy- Primary Hemiparesis, right ([facility]) Unspecified hemiplegia affecting unspecified side Acute respiratory failure with hypoxia ([facility]) Heart murmur Undiagnosed cardiac murmurs Primary hypertension ([facility] Unspecified essential hypertension Morbid obesity ([facility]) Morbid obesity Bipolar disorder with severe depression ([facility]) Slurred speech Other speech disturbance Bilateral lower extremity edema- Primary Primary hypertension ([facility]/HCC) Unspecified essential hypertension Lower extremity edema Edema Essential (primary) hypertension ([facility]) Unspecified essential hypertension Gastro-esophageal reflux disease without esophagitis Allergic rhinitis, unspecified Bilateral lower extremity edema- Primary Morbid (severe) obesity due to excess calories ([facility]) Body mass index (BMI) 45.0-49.9, adult ([facility]) Pre-diabetes Other abnormal glucose Bilateral lower extremity edema- Primary Essential (primary) hypertension ([facility]) Unspecified essential hypertension Allergic rhinitis, unspecified OSMANY (obstructive sleep apnea) Obstructive sleep apnea (adult) (pediatric) Primary hypertension ([facility] Unspecified essential hypertension Morbid obesity ([facility]) Morbid obesity Acute cystitis without [...] (CMS/HCC) Unspecified episodic mood disorder Primary hypertension ([facility]) Unspecified essential hypertension Left hip pain Pain in joint, pelvic region and thigh Open wound of anterior abdominal wall, initial encounter Primary hypertension ([facility]/HCC)- Primary Unspecified essential hypertension Yeast infection of the skin Candidiasis of skin and nails Morbid obesity ([facility] Morbid obesity Primary hypertension ([facility])- Primary Unspecified essential hypertension Allergic rhinitis, unspecified Acute cough Morbid obesity ([facility]) Morbid obesity Former cigarette smoker Personal history of tobacco use, presenting hazards to health Toxic metabolic encephalopathy- Primary Hemiparesis, right ([facility]) Unspecified hemiplegia affecting unspecified side Acute respiratory failure with hypoxia ([facility]) Heart murmur Undiagnosed cardiac murmurs Primary hypertension ([facility] Unspecified essential hypertension Morbid obesity ([facility]) Morbid obesity Bipolar disorder with severe depression ([facility]) Slurred speech Other speech disturbance Bilateral lower extremity edema- Primary Primary hypertension ([facility]/HCC) Unspecified essential hypertension Lower extremity edema Edema Essential (primary) hypertension ([facility]) Unspecified essential hypertension Gastro-esophageal reflux disease without esophagitis Allergic rhinitis, unspecified Bilateral lower extremity edema- Primary Morbid (severe) obesity due to excess calories ([facility]) Body mass index (BMI) 45.0-49.9, adult ([facility]) Pre-diabetes Other abnormal glucose Bilateral [...] Obstructive sleep apnea (adult) (pediatric) Morbid obesity ([facility]/HCC) Morbid obesity Bilateral lower extremity edema Tobacco dependence Tobacco use disorder Bipolar disorder with severe depression (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)- Primary Restless leg Restless legs syndrome (RLS) Metabolic encephalopathy documented in this encounter [facility]* Diagnosis OSMANY (obstructive sleep apnea)- Primary Obstructive sleep apnea (adult) (pediatric) Restless leg Restless legs syndrome (RLS) documented in this encounter [facility]* Diagnosis Bilateral lower extremity edema- Primary Essential (primary) hypertension ([facility]) Unspecified essential hypertension Allergic rhinitis, unspecified OSMANY (obstructive sleep apnea) Obstructive sleep apnea (adult) (pediatric) Primary hypertension ([facility]) Unspecified essential hypertension Morbid obesity ([facility]) Morbid obesity documented in this [...] Edema Pre-diabetes Other abnormal glucose Morbid obesity ([facility]/HCC) Morbid obesity Yeast infection of the skin Candidiasis of skin and nails Tobacco dependence Tobacco use disorder Mood disorder ([facility]/HCC) Unspecified episodic mood disorder Primary hypertension ([facility]) Unspecified essential hypertension Left hip pain Pain in joint, pelvic region and thigh Open wound of anterior abdominal wall, initial encounter Primary hypertension ([facility])- Primary Unspecified essential hypertension Yeast infection of the skin Candidiasis of skin and nails Morbid obesity ([facility]/HCC) Morbid obesity Primary hypertension ([facility])- Primary Unspecified essential hypertension Allergic rhinitis, unspecified Acute cough Morbid obesity ([facility]) Morbid obesity Former cigarette smoker Personal history of tobacco use, presenting hazards to health Toxic metabolic encephalopathy- Primary Hemiparesis, right ([facility]) Unspecified hemiplegia affecting unspecified side Acute respiratory failure with hypoxia ([facility]) Heart murmur Undiagnosed cardiac murmurs Primary hypertension ([facility]) Unspecified essential hypertension Morbid obesity ([facility]) Morbid obesity Bipolar disorder with severe depression ([facility]) Slurred speech Other speech disturbance Bilateral lower extremity edema- Primary Primary hypertension ([facility]) Unspecified essential hypertension Lower extremity edema Edema Essential (primary) hypertension ([facility]) Unspecified essential hypertension Gastro-esophageal reflux disease without esophagitis Allergic rhinitis, unspecified Bilateral lower extremity edema- Primary Morbid (severe) obesity due to excess calories ([facility]) Body mass index (BMI) 45.0-49.9, adult ([facility]) Pre-diabetes Other abnormal glucose Bilateral lower extremity edema- Primary Essential (primary) hypertension ([facility]) Unspecified essential hypertension Allergic rhinitis, unspecified OSMANY (obstructive sleep apnea) Obstructive sleep apnea (adult) (pediatric) Primary hypertension ([facility]) Unspecified essential hypertension Morbid obesity ([facility]) Morbid obesity Acute cystitis without hematuria- Primary Tobacco dependence Tobacco use disorder Needs flu shot Need for prophylactic vaccination and inoculation against influenza Morbid obesity ([facility]/HCC) Morbid obesity Well woman exam with routine gynecological exam- Primary Routine gynecological examination Morbid obesity ([facility]) Morbid obesity Metabolic encephalopathy- Primary OSMANY (obstructive sleep apnea) Obstructive sleep apnea (adult) (pediatric) Morbid obesity ([facility]) Morbid obesity Bilateral lower extremity edema Tobacco dependence Tobacco use disorder Bipolar disorder with severe depression ([facility]) At risk for polypharmacy Anxiety Anxiety state, unspecified Primary hypertension ([facility]) Unspecified essential hypertension Right bundle branch block (RBBB) determined by electrocardiography Metabolic encephalopathy- Primary Memory change Memory loss Altered mental status, unspecified altered mental status type Concentration deficit PTSD (post-traumatic stress disorder) ([facility]) Posttraumatic stress disorder Bipolar affective disorder, remission status unspecified (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) OSMANY (obstructive sleep apnea) Obstructive [...] Morbid obesity (CMS/HCC) Morbid obesity Primary hypertension ([facility]/HCC)- Primary Unspecified essential hypertension Allergic rhinitis, unspecified Acute cough Morbid obesity ([facility]) Morbid obesity Former cigarette smoker Personal history of tobacco use, presenting hazards to health Toxic metabolic encephalopathy- Primary Hemiparesis, right ([facility]) Unspecified hemiplegia affecting unspecified side Acute respiratory failure with hypoxia ([facility]) Heart murmur Undiagnosed cardiac murmurs Primary hypertension ([facility]) [facility]specified essential hypertension Morbid obesity ([facility] Morbid obesity Bipolar disorder with severe depression ([facility]) Slurred speech Other speech disturbance Bilateral lower extremity edema- Primary Primary hypertension ([facility]/HCC) Unspecified essential hypertension Lower extremity edema Edema Essential (primary) hypertension ([facility]) Unspecified essential hypertension Gastro-esophageal reflux disease without esophagitis Allergic rhinitis, unspecified Bilateral lower extremity edema- Primary Morbid (severe) obesity due to excess calories ([facility]) Body mass index (BMI) 45.0-49.9, adult ([facility]) Pre-diabetes Other abnormal glucose Bilateral lower extremity edema- Primary Essential (primary) hypertension ([facility]/HCC) Unspecified essential hypertension Allergic rhinitis, unspecified OSMANY (obstructive sleep apnea) Obstructive sleep apnea (adult) (pediatric) Primary hypertension ([facility]/HCC) Unspecified essential hypertension Morbid obesity ([facility]/HCC) Morbid obesity Acute cystitis without hematuria- Primary [...] legs syndrome (RLS) documented in this encounter [facility] HealthcareEvaluation note* Diagnosis Encounter for annual [...] unspecified side Acute respiratory failure with hypoxia (CMS/[facility]) Heart murmur Undiagnosed cardiac murmurs [...] (CMS/HCC) Body mass index (BMI) 45.0-49.9, adult (CMS/[facility]) Pre-diabetes Other abnormal glucose Bilateral lower extremity edema- Primary Essential (primary) hypertension (CMS/HCC) Unspecified essential hypertension Allergic rhinitis, unspecified OSMANY (obstructive sleep apnea) Obstructive sleep apnea (adult) (pediatric) Primary hypertension ([facility]/HCC) Unspecified essential hypertension Morbid obesity ([facility]) Morbid obesity Acute cystitis without hematuria- Primary Tobacco dependence Tobacco use disorder Needs flu shot Need for prophylactic vaccination and inoculation against influenza Morbid obesity (CMS/HCC) Morbid obesity Well woman exam with routine gynecological exam- Primary Routine gynecological examination Morbid obesity ([facility]/HCC) Morbid obesity Metabolic encephalopathy- Primary OSMANY (obstructive sleep apnea) Obstructive sleep apnea (adult) (pediatric) Morbid obesity ([facility]/HCC) Morbid obesity Bilateral lower extremity edema Tobacco dependence Tobacco use disorder Bipolar disorder with severe depression ([facility]) At risk for polypharmacy Anxiety Anxiety state, unspecified Primary hypertension ([facility]) Unspecified essential hypertension Right bundle branch block (RBBB) determined by electrocardiography Primary hypertension ([facility])- Primary Unspecified essential hypertension Chronic kidney disease, stage 3a ([facility]) ([facility]) Morbid (severe) obesity due to excess calories ([facility]) Body mass index (BMI) 45.0-49.9, adult ([facility]) OSMANY (obstructive sleep apnea) Obstructive sleep apnea (adult) (pediatric) Hemiparesis, right ([facility]) Unspecified hemiplegia affecting unspecified side Gastroesophageal reflux disease, unspecified whether esophagitis present Metabolic encephalopathy Essential (primary) hypertension ([facility]) Unspecified essential hypertension Allergic rhinitis, unspecified Gastro-esophageal reflux disease without esophagitis Bilateral lower extremity edema documented in this encounter [facility] HealthcareEvaluation note* Diagnosis Encounter for annual wellness visit (AWV) in Medicare patient- Primary OSMANY (obstructive sleep apnea) Obstructive sleep apnea (adult) (pediatric) Chronic pain disorder Chronic pain syndrome Gastroesophageal reflux disease, unspecified whether esophagitis present Overactive bladder Hypertonicity of bladder Lower extremity edema Edema Pre-diabetes Other abnormal glucose Morbid obesity ([facility]/HCC) Morbid obesity Yeast infection of the skin Candidiasis of skin and nails Tobacco dependence Tobacco use disorder Mood disorder ([facility]/HCC) Unspecified episodic mood disorder Primary hypertension ([facility]) Unspecified essential hypertension Left hip pain Pain in joint, pelvic region and thigh Open wound of anterior abdominal wall, initial encounter Primary hypertension ([facility]/HCC)- Primary Unspecified essential hypertension Yeast infection of the skin Candidiasis of skin and nails Morbid obesity ([facility]/HCC) Morbid obesity Primary hypertension ([facility])- Primary Unspecified essential hypertension Allergic rhinitis, unspecified Acute cough Morbid obesity ([facility]) Morbid obesity Former cigarette smoker Personal history of tobacco use, presenting hazards to health Toxic metabolic encephalopathy- Primary Hemiparesis, right ([facility]) Unspecified hemiplegia affecting unspecified side Acute respiratory failure with hypoxia ([facility]) Heart murmur Undiagnosed cardiac murmurs Primary hypertension ([facility] Unspecified essential hypertension Morbid obesity ([facility]) Morbid obesity Bipolar disorder with severe depression ([facility]) Slurred speech Other speech disturbance Bilateral lower extremity edema- Primary Primary hypertension ([facility]/HCC) Unspecified essential hypertension Lower extremity edema Edema Essential (primary) hypertension ([facility]) Unspecified essential hypertension Gastro-esophageal reflux disease without esophagitis Allergic rhinitis, unspecified Bilateral lower extremity edema- Primary Morbid (severe) obesity due to excess calories ([facility]) Body mass index (BMI) 45.0-49.9, adult ([facility]) Pre-diabetes Other abnormal glucose Bilateral lower extremity edema- Primary Essential (primary) hypertension ([facility]) Unspecified essential hypertension Allergic rhinitis, unspecified OSMANY (obstructive sleep apnea) Obstructive sleep apnea (adult) (pediatric) Primary hypertension ([facility]) Unspecified essential hypertension Morbid obesity ([facility]) Morbid obesity Acute cystitis without hematuria- Primary Tobacco dependence Tobacco use disorder Needs flu shot Need for prophylactic vaccination and inoculation against influenza Morbid obesity ([facility]) Morbid obesity Well woman exam with routine gynecological exam- Primary Routine gynecological examination Morbid obesity ([facility]) Morbid obesity Metabolic encephalopathy- Primary OSMANY (obstructive sleep apnea) Obstructive sleep apnea (adult) (pediatric) Morbid obesity ([facility]) Morbid obesity Bilateral lower extremity edema Tobacco dependence Tobacco use disorder Bipolar disorder with severe depression ([facility]) At risk for polypharmacy Anxiety Anxiety state, unspecified Primary hypertension ([facility]) Unspecified essential hypertension Right bundle branch block (RBBB) determined by electrocardiography Primary hypertension ([facility])- Primary Unspecified essential hypertension Chronic kidney disease, stage 3a (HCC) ([facility]) Morbid (severe) obesity due to excess calories ([facility]) Body mass index (BMI) 45.0-49.9, adult ([facility]) OSMANY (obstructive sleep apnea) Obstructive sleep apnea (adult) (pediatric) Hemiparesis, right ([facility]) Unspecified hemiplegia affecting unspecified side Gastroesophageal reflux disease, unspecified whether esophagitis present Metabolic encephalopathy Essential (primary) hypertension (CMS/HCC) Unspecified essential hypertension Allergic rhinitis, unspecified Gastro-esophageal reflux disease without esophagitis Bilateral lower extremity edema 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 ([facility])- Primary OSMANY (obstructive sleep apnea) Obstructive sleep apnea (adult) (pediatric) Metabolic encephalopathy Restless leg Restless legs syndrome (RLS) Degeneration of intervertebral disc of lumbar region with discogenic back pain and lower extremity pain documented in this encounter [facility] HealthcareEvaluation note* Diagnosis Encounter for annual [...] health Toxic metabolic encephalopathy- Primary Hemiparesis, right (CMS/[facility]) Unspecified hemiplegia affecting unspecified side Acute respiratory failure with hypoxia (CMS/[facility]) Heart murmur Undiagnosed cardiac murmurs [...] Morbid (severe) obesity due to excess calories (CMS/[facility]) Body mass index (BMI) 45.0-49.9, adult (CMS/[facility]) Pre-diabetes Other abnormal glucose Bilateral lower extremity edema- Primary Essential (primary) hypertension ([facility]) Unspecified essential hypertension Allergic rhinitis, unspecified OSMANY (obstructive sleep apnea) Obstructive sleep apnea (adult) (pediatric) Primary hypertension ([facility]/HCC) Unspecified essential hypertension Morbid obesity ([facility]) Morbid obesity Acute cystitis without hematuria- Primary Tobacco dependence Tobacco use disorder Needs flu shot Need for prophylactic vaccination and inoculation against influenza Morbid obesity ([facility]/HCC) Morbid obesity Well woman exam with routine gynecological exam- Primary Routine gynecological examination Morbid obesity ([facility]/HCC) Morbid obesity Metabolic encephalopathy- Primary OSMANY (obstructive sleep apnea) Obstructive sleep apnea (adult) (pediatric) Morbid obesity ([facility]/HCC) Morbid obesity Bilateral lower extremity edema Tobacco dependence Tobacco use disorder Bipolar disorder with severe depression ([facility]) At risk for polypharmacy Anxiety Anxiety state, unspecified Primary hypertension ([facility]) Unspecified essential hypertension Right bundle branch block (RBBB) determined by electrocardiography Primary hypertension ([facility])- Primary Unspecified essential hypertension Chronic kidney disease, stage 3a ([facility]) ([facility]) Morbid (severe) obesity due to excess calories ([facility]) Body mass index (BMI) 45.0-49.9, adult ([facility]) OSMANY (obstructive sleep apnea) Obstructive sleep apnea (adult) (pediatric) Hemiparesis, right ([facility]) Unspecified hemiplegia affecting unspecified side Gastroesophageal reflux disease, unspecified whether esophagitis present Metabolic encephalopathy Essential (primary) hypertension ([facility]) Unspecified essential hypertension Allergic rhinitis, unspecified Gastro-esophageal reflux disease without esophagitis Bilateral lower extremity edema Restless leg Restless legs syndrome (RLS) documented in this encounter [facility]Evaluation note* Diagnosis Encounter for annual wellness visit (AWV) in Medicare patient- Primary OSMANY (obstructive sleep apnea) Obstructive sleep apnea (adult) (pediatric) Chronic pain disorder Chronic pain syndrome Gastroesophageal reflux disease, unspecified whether esophagitis present Overactive bladder Hypertonicity of bladder Lower extremity edema Edema Pre-diabetes Other abnormal glucose Morbid obesity ([facility]/HCC) Morbid obesity Yeast infection of the skin Candidiasis of skin and nails Tobacco dependence Tobacco use disorder Mood disorder ([facility]/HCC) Unspecified episodic mood disorder Primary hypertension ([facility]) Unspecified essential hypertension Left hip pain Pain in joint, pelvic region and thigh Open wound of anterior abdominal wall, initial encounter Primary hypertension ([facility]/HCC)- Primary Unspecified essential hypertension Yeast infection of the skin Candidiasis of skin and nails Morbid obesity ([facility]/HCC) Morbid obesity Primary hypertension ([facility]/HCC)- Primary Unspecified essential hypertension Allergic rhinitis, unspecified Acute cough Morbid obesity ([facility]/HCC) Morbid obesity Former cigarette smoker Personal history of tobacco use, presenting hazards to health Toxic metabolic encephalopathy- Primary Hemiparesis, right ([facility]) Unspecified hemiplegia affecting unspecified side Acute respiratory failure with hypoxia ([facility]) Heart murmur Undiagnosed cardiac murmurs Primary hypertension ([facility]) Unspecified essential hypertension Morbid obesity ([facility]) Morbid obesity Bipolar disorder with severe depression ([facility]) Slurred speech Other speech disturbance Bilateral lower extremity edema- Primary Primary hypertension ([facility] [facility] Unspecified essential hypertension Lower extremity edema Edema Essential (primary) hypertension ([facility]) Unspecified essential hypertension Gastro-esophageal reflux disease without esophagitis Allergic rhinitis, unspecified Bilateral lower extremity edema- Primary Morbid (severe) obesity due to excess calories ([facility]) Body mass index (BMI) 45.0-49.9, adult ([facility]) Pre-diabetes Other abnormal glucose Bilateral lower extremity edema- Primary Essential (primary) hypertension ([facility]) Unspecified essential hypertension Allergic rhinitis, unspecified OSMANY (obstructive sleep apnea) Obstructive sleep apnea (adult) (pediatric) Primary hypertension ([facility]) Unspecified essential hypertension Morbid obesity ([facility]) Morbid obesity Acute cystitis without hematuria- Primary Tobacco dependence Tobacco use disorder Needs flu shot Need for prophylactic vaccination and inoculation against influenza Morbid obesity ([facility]/HCC) Morbid obesity Well woman exam with routine gynecological exam- Primary Routine gynecological examination Morbid obesity ([facility]) Morbid obesity Metabolic encephalopathy- Primary OSMANY (obstructive sleep apnea) Obstructive sleep apnea (adult) (pediatric) Morbid obesity ([facility]) Morbid obesity Bilateral lower extremity edema Tobacco dependence Tobacco use disorder Bipolar disorder with severe depression ([facility]) At risk for polypharmacy Anxiety Anxiety state, unspecified Primary hypertension ([facility]) Unspecified essential hypertension Right bundle branch block (RBBB) determined by electrocardiography Primary hypertension ([facility])- Primary Unspecified essential hypertension Chronic kidney disease, stage 3a (HCC) ([facility]) Morbid (severe) obesity due to excess calories ([facility]) Body mass index (BMI) 45.0-49.9, adult ([facility]) OSMANY (obstructive sleep apnea) Obstructive sleep apnea (adult) (pediatric) Hemiparesis, right ([facility]) Unspecified hemiplegia affecting unspecified side Gastroesophageal reflux disease, unspecified whether esophagitis present Metabolic encephalopathy Essential (primary) hypertension ([facility]) Unspecified essential hypertension Allergic rhinitis, unspecified Gastro-esophageal reflux disease without esophagitis Bilateral lower extremity edema URI, acute- Primary Acute upper respiratory infections of unspecified site documented in this encounter [facility] HealthcareEvaluation note* Diagnosis Encounter for annual wellness visit (AWV) in Medicare patient- Primary OSMANY (obstructive sleep apnea) Obstructive sleep apnea (adult) (pediatric) Chronic pain disorder Chronic pain syndrome Gastroesophageal reflux disease, unspecified whether esophagitis present Overactive bladder Hypertonicity of bladder Lower extremity edema Edema Pre-diabetes Other abnormal glucose Morbid obesity ([facility] Morbid obesity Yeast infection of the skin Candidiasis of skin and nails Tobacco dependence Tobacco use disorder Mood disorder ([facility]) Unspecified episodic mood disorder Primary hypertension ([facility]) Unspecified essential hypertension Left hip pain Pain in joint, pelvic region and thigh Open wound of anterior abdominal wall, initial encounter Primary hypertension ([facility])- Primary Unspecified essential hypertension Yeast infection of the skin Candidiasis of skin and nails Morbid obesity ([facility] Morbid obesity Primary hypertension ([facility])- Primary Unspecified essential hypertension Allergic rhinitis, unspecified Acute cough Morbid obesity ([facility]) Morbid obesity Former cigarette smoker Personal history of tobacco use, presenting hazards to health Toxic metabolic encephalopathy- Primary Hemiparesis, right ([facility]) Unspecified hemiplegia affecting unspecified side Acute respiratory failure with hypoxia ([facility]) Heart murmur Undiagnosed cardiac murmurs Primary hypertension ([facility]) [facility]specified essential hypertension Morbid obesity ([facility]) Morbid obesity Bipolar disorder with severe depression ([facility]) Slurred speech Other speech disturbance Bilateral lower extremity edema- Primary Primary hypertension ([facility]) Unspecified essential hypertension Lower extremity edema Edema Essential (primary) hypertension ([facility]) Unspecified essential hypertension Gastro-esophageal reflux disease without esophagitis Allergic rhinitis, unspecified Bilateral lower extremity edema- Primary Morbid (severe) obesity due to excess calories ([facility]) Body mass index (BMI) 45.0-49.9, adult ([facility]) Pre-diabetes Other abnormal glucose Bilateral lower extremity edema- Primary Essential (primary) hypertension ([facility]) Unspecified essential hypertension Allergic rhinitis, unspecified OSMANY (obstructive sleep apnea) Obstructive sleep apnea (adult) (pediatric) Primary hypertension ([facility]/HCC) Unspecified essential hypertension Morbid obesity ([facility]/HCC) Morbid obesity Acute cystitis without hematuria- Primary Tobacco dependence Tobacco use disorder Needs flu shot Need for prophylactic vaccination and inoculation against influenza Morbid obesity (CMS/HCC) Morbid obesity Well woman exam with routine gynecological exam- Primary Routine gynecological examination Morbid obesity (CMS/HCC) Morbid obesity Metabolic encephalopathy- Primary OSMANY (obstructive sleep apnea) Obstructive sleep apnea (adult) (pediatric) Morbid obesity ([facility]/HCC) Morbid obesity Bilateral lower extremity edema Tobacco dependence Tobacco use disorder Bipolar disorder with severe depression ([facility]) At risk for polypharmacy Anxiety Anxiety state, unspecified Primary hypertension ([facility]/HCC) Unspecified essential hypertension Right bundle branch block (RBBB) determined by electrocardiography Primary hypertension ([facility]/HCC)- Primary Unspecified essential hypertension Chronic kidney disease, stage 3a ([facility]) ([facility]) Morbid (severe) obesity due to excess calories ([facility]) Body mass index (BMI) 45.0-49.9, adult ([facility]) OSMANY (obstructive sleep apnea) Obstructive sleep apnea (adult) (pediatric) Hemiparesis, right ([facility]) Unspecified hemiplegia affecting unspecified side Gastroesophageal reflux disease, unspecified whether esophagitis present Metabolic encephalopathy Essential (primary) hypertension (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) Concentration deficit documented in this [...] Tobacco dependence Tobacco use disorder Mood disorder ([facility]/HCC) Unspecified episodic mood disorder Primary hypertension ([facility]/HCC) Unspecified essential hypertension Left hip pain Pain in joint, pelvic region and thigh Open wound of anterior abdominal wall, initial encounter Primary hypertension ([facility]/HCC)- Primary Unspecified essential hypertension Yeast infection of the skin Candidiasis of skin and nails Morbid obesity ([facility]/HCC) Morbid obesity Primary hypertension ([facility]/HCC)- Primary Unspecified essential hypertension Allergic rhinitis, unspecified Acute cough Morbid obesity ([facility]/HCC) Morbid obesity Former cigarette smoker Personal history of tobacco use, presenting hazards to health Toxic metabolic encephalopathy- Primary Hemiparesis, right ([facility]) Unspecified hemiplegia affecting unspecified side Acute respiratory failure with hypoxia ([facility]) Heart murmur Undiagnosed cardiac murmurs Primary hypertension ([facility]) [facility]specified essential hypertension Morbid obesity ([facility]) Morbid obesity Bipolar disorder with severe depression ([facility]) Slurred speech Other speech disturbance Bilateral lower extremity edema- Primary Primary hypertension ([facility]/HCC) Unspecified essential hypertension Lower extremity edema Edema Essential (primary) hypertension ([facility]) Unspecified essential hypertension Gastro-esophageal reflux disease without esophagitis Allergic rhinitis, unspecified Bilateral lower extremity edema- Primary Morbid (severe) obesity due to excess calories ([facility]) Body mass index (BMI) 45.0-49.9, adult ([facility]) Pre-diabetes Other abnormal glucose Bilateral lower extremity edema- Primary Essential (primary) hypertension ([facility]) Unspecified essential hypertension Allergic rhinitis, unspecified OSMANY (obstructive sleep apnea) Obstructive sleep apnea (adult) (pediatric) Primary hypertension ([facility]) Unspecified essential hypertension Morbid obesity ([facility]) Morbid obesity Acute cystitis without hematuria- Primary Tobacco dependence Tobacco use disorder Needs flu shot Need for prophylactic vaccination and inoculation against influenza Morbid obesity ([facility]/HCC) Morbid obesity Well woman exam with routine gynecological exam- Primary Routine gynecological examination Morbid obesity ([facility]) Morbid obesity Metabolic encephalopathy- Primary OSMANY (obstructive sleep apnea) Obstructive sleep apnea (adult) (pediatric) Morbid obesity ([facility]) Morbid obesity Bilateral lower extremity edema Tobacco dependence Tobacco use disorder Bipolar disorder with severe depression ([facility]) At risk for polypharmacy Anxiety Anxiety state, unspecified Primary hypertension ([facility]) Unspecified essential hypertension Right bundle branch block (RBBB) determined by electrocardiography Primary hypertension ([facility])- Primary Unspecified essential hypertension Chronic kidney disease, stage 3a (HCC) ([facility]) Morbid (severe) obesity due to excess calories ([facility]) Body mass index (BMI) 45.0-49.9, adult ([facility]) OSMANY (obstructive sleep apnea) Obstructive sleep apnea (adult) (pediatric) Hemiparesis, right ([facility]/HCC) Unspecified hemiplegia affecting unspecified side Gastroesophageal reflux disease, unspecified whether esophagitis present Metabolic encephalopathy Essential (primary) hypertension (CMS/HCC) Unspecified essential hypertension Allergic rhinitis, unspecified Gastro-esophageal reflux disease without esophagitis Bilateral lower extremity edema Primary hypertension ([facility]/HCC)- Primary Unspecified essential hypertension Morbid (severe) obesity due to excess calories (CMS/HCC) Essential (primary) hypertension ([facility]) Unspecified essential hypertension Allergic rhinitis, unspecified Gastro-esophageal reflux disease without esophagitis Bilateral lower extremity edema Bronchitis Bronchitis, not specified as acute or chronic documented in this encounter [facility] HealthcareEvaluation note* Diagnosis Encounter for annual wellness visit (AWV) in Medicare patient- Primary OSMANY (obstructive sleep apnea) Obstructive sleep apnea (adult) (pediatric) Chronic pain disorder Chronic pain syndrome Gastroesophageal reflux disease, unspecified whether esophagitis present Overactive bladder Hypertonicity of bladder Lower extremity edema Edema Pre-diabetes Other abnormal glucose Morbid obesity (CMS/[facility]) Morbid obesity Yeast infection of the skin Candidiasis of skin and nails Tobacco dependence Tobacco use disorder Mood disorder ([facility]) Unspecified episodic mood disorder Primary hypertension ([facility]) Unspecified essential hypertension Left hip pain Pain in joint, pelvic region and thigh Open wound of anterior abdominal wall, initial encounter Primary hypertension ([facility])- Primary Unspecified essential hypertension Yeast infection of the skin Candidiasis of skin and nails Morbid obesity ([facility]/HCC) Morbid obesity Primary hypertension ([facility])- Primary Unspecified essential hypertension Allergic rhinitis, unspecified Acute cough Morbid obesity ([facility]) Morbid obesity Former cigarette smoker Personal history of tobacco use, presenting hazards to health Toxic metabolic encephalopathy- Primary Hemiparesis, right ([facility]) Unspecified hemiplegia affecting unspecified side Acute respiratory failure with hypoxia ([facility]) Heart murmur Undiagnosed cardiac murmurs Primary hypertension (CMS/[facility]) Unspecified essential hypertension Morbid obesity ([facility]) Morbid obesity Bipolar disorder with severe depression ([facility]) Slurred speech Other speech disturbance Bilateral lower extremity edema- Primary Primary hypertension (CMS/HCC) Unspecified essential hypertension Lower extremity edema Edema Essential (primary) hypertension ([facility]) Unspecified essential hypertension Gastro-esophageal reflux disease without esophagitis Allergic rhinitis, unspecified Bilateral lower extremity edema- Primary Morbid (severe) obesity due to excess calories ([facility]) Body mass index (BMI) 45.0-49.9, adult ([facility]) Pre-diabetes Other abnormal glucose Bilateral lower extremity edema- Primary Essential (primary) hypertension ([facility]/HCC) Unspecified essential hypertension Allergic rhinitis, unspecified OSMANY (obstructive sleep apnea) Obstructive sleep apnea (adult) (pediatric) Primary hypertension ([facility]/HCC) Unspecified essential hypertension Morbid obesity ([facility]/HCC) Morbid obesity Well woman exam with routine gynecological exam- Primary Routine gynecological examination Morbid obesity ([facility]/HCC) Morbid obesity Metabolic encephalopathy- Primary OSMANY (obstructive sleep apnea) Obstructive sleep apnea (adult) (pediatric) Morbid obesity ([facility]/HCC) Morbid obesity Bilateral lower extremity edema Tobacco dependence Tobacco use disorder Bipolar disorder with severe depression ([facility]) At risk for polypharmacy Anxiety Anxiety state, unspecified Primary hypertension ([facility]) Unspecified essential hypertension Right bundle branch block (RBBB) determined by electrocardiography Primary hypertension ([facility])- Primary Unspecified essential hypertension Chronic kidney disease, stage 3a (HCC) ([facility]) Morbid (severe) obesity due to excess calories ([facility]) Body mass index (BMI) 45.0-49.9, adult ([facility]) OSMANY (obstructive sleep apnea) Obstructive sleep apnea (adult) (pediatric) Hemiparesis, right ([facility]) Unspecified hemiplegia affecting unspecified side Gastroesophageal reflux disease, unspecified whether esophagitis present Metabolic encephalopathy Essential (primary) hypertension ([facility]) Unspecified essential hypertension Allergic rhinitis, unspecified Gastro-esophageal reflux disease without esophagitis Bilateral lower extremity edema Primary hypertension ([facility]/HCC)- Primary Unspecified essential hypertension Morbid (severe) obesity due to excess calories ([facility]) Essential (primary) hypertension ([facility]) Unspecified essential hypertension Allergic rhinitis, unspecified Gastro-esophageal reflux disease without esophagitis Bilateral lower extremity edema Bronchitis Bronchitis, not specified as acute or chronic Primary hypertension ([facility])- Primary Unspecified essential hypertension Bronchitis Bronchitis, not specified as acute or chronic Bilateral lower extremity edema Morbid (severe) obesity due to excess calories ([facility]) Pre-diabetes Other abnormal glucose Allergic rhinitis, unspecified seasonality, unspecified trigger Encounter for screening mammogram for malignant neoplasm of breast Former cigarette smoker Personal history of tobacco use, presenting hazards to health documented in this encounter [facility] and physical note Author Jace Graham [facility] March 23, 2023 11:21am Note Date/Time March 23, 2023 11:21am [facility] [address] [place] [address] Gastroenterology H&P Signed Patient: Michelle Be MR#: [id number] : 1960 Acct:[id number] Age/Sex: 62 / F Adm Date: 3 Loc: Room: Type: [facility] Attending Dr: Jace Graham MD [...] <Electronically signed by Jace Graham MD> 03/23/[id number] [facility] Work Phone: History general [...] see above surg Hospitalization History stroke 2017 [facility] Other Hospital Discharge instructions Additional Instructions [facility] [...] FOLLOW UP & RECOMMENDATIONS: -Follow-up with Dr. Ditty as needed -Notify the doctor if you have any problems. -Repeat colonoscopy in 10 years. -Follow up with PCP. -Office number [phone].[facility] Work Phone: Reason for visit Narrative* Consultation (Routine) - Closed Specialty Diagnoses / Procedures Referred By Contac t Referred To Contact Neuropsychology Diagnoses Memory change Procedures NH OFFICE/OUTPATIENT [facility] Juany Leggett PA [address] [place] [address] Phone: tel: fax: David Foster, PhD [address] [address] Phone: tel: fax: Referral ID Status Reason Start Date Expiration Date V isits Requested Visits Authorized [id number] Closed Specialty Services Required 03/07/2024 09/03/2024 1 1 [facility] Healthcare Summary Purpose Family History No [...] Documents on File Type Date Recorded Patient Client Strategist Expl anation Power of Tool Analyst 03/10/2024 3:12 PM POA Documents on File Type Date Recorded Patient Client Strategist Expl anation Power of Tool Analyst 03/10/2024 3:12 PM POA Documents on File Type Date Recorded Patient Client Strategist Expl anation Power of Tool Analyst 03/16/2024 9:42 AM darian r of family law attorney Power of Tool Analyst 03/10/2024 3:12 PM POA Documents on File Type Date Recorded Patient Client Strategist Expl anation Power of Tool Analyst 03/16/2024 9:42 AM darian r of family law attorney Power of Tool Analyst 03/10/2024 3:12 PM POA Chief Complaint and Reason for Visit Chief Complaint Bipolar Depression Reason for Visit Allergies Bipolar 2 disorder Hypertension Morbid obesity with BMI of 45.0-49.9, adult OSMANY (obstructive sleep apnea) Restless legs syndrome Chief Complaint Screening Additional Source Comments INFORMATION SOURCE (unrecogn ized section and content) DATE CREATED AUTHOR 02/18/2019 [facility] DATE CREATED AUTHOR AUTHOR'S ORGANIZ ATION 11/15/2021 [facility]manuel [facility] DATE CREATED AUTHOR AUTHOR'S ORGANIZ ATION 08/16/2022 [facility] DATE CREATED AUTHOR AUTHOR'S ORGANIZ ATION 08/17/2024 [facility] EPIC DATE CREATED AUTHOR AUTHOR'S ORGANIZ ATION 09/28/2024 [facility] DATE CREATED AUTHOR AUTHOR'S ORGANIZ ATION 10/06/2024 [facility] Care Teams (unrecognized sec tion and content) Team Status: Active Member Role Status Dates Adelaida Carrion Primary Care Provider Active Team Status: Inactive Member Role Status Dates Adelaida Carrion Primary Care Provider Active Gaudencio Monk MD Admit Provider, Attending Pr ovider Active Andreina Vieira , JOHANN Other Provider Active Camilla Pina , JOHANN Other Provider Active Ruchi uHrtado , JOHANN Other Provider Active Lisa Crooks , RN [...] MD Other Provider Active Joellen Le , COMMUNICATIONS EQUIPMENT INSTALLER-C Other Provider Active Severo Yancey MD Other Provider Active Rao Webber MD Other Provider Active Yuan Shi MD Other Provider Active Delroy Ramirez MD Other Provider Active Berta Comer , DO Other Provider Active Negrito Ruiz , DO Other Provider Active Lacho Singh , DO Other Provider Active Rachana Hobson , CASSANDRA CONSULTANT Other Provider Active Rob Lake , DO Other Provider Active Jeff Alvarez MD Other Provider Active Urmila Rinaldi , CASSANDRA CONSULTANT Other Provider Active Bina Mayberry , CASSANDRA CONSULTANT Other Provider Active Mir Bradford MD Other Provider Active Te Da Silva MD Other Provider Active Debra Landaverde RN Other Provider Active Team Status: Inactive Member Role Status Dates Adelaida Carrion Primary Care Provider Active Jace Graham MD Attending Provider Active Auto Damage Trainee Relationship Specialty Start Date End Date José Luis Roberts MD [address] [place] [address] PCP - General Family Medicine 05/18/23 Adelaida Carrion NP [address] [place] [address] Referring Physician Nurse Practitioner 10/14/22 Auto Damage Trainee Relationship Specialty Start Date End Date José Luis Roberts MD [address] [place] [address] PCP - General Family Medicine 05/18/23 Adelaida Carrion NP [address] [place] [address] Referring Physician Nurse Practitioner 10/14/22 Auto Damage Trainee Relationship Specialty Start Date End Date José Luis Roberts MD [address] [place] [address] PCP - General Family Medicine 05/18/23 Adelaida Carrion NP [address] [place] [address] Referring Physician Nurse Practitioner 10/14/22 Auto Damage Trainee Relationship Specialty Start Date End Date José Luis Roberts MD [address] [place] [address] PCP - General Family Medicine 05/18/23 Adelaida Carrion NP Referring Physician Nurse Practitioner 10/14/22 Miriam Suarez DO [address] [place] [address] Referring Physician Neurology 06/29/23 [place] LPN Licensed Practical Nurse Family Medicine 12/18/23 Auto Damage Trainee Relationship Specialty Start Date End Date José Luis Roberts MD [address] [place] [address] PCP - General Family Medicine 05/18/23 Adelaida Carrion, BRIANA Referring Physician Nurse Practitioner 10/14/22 Miriam Suarez DO [address] [place] [address] Referring Physician Neurology 06/29/23 [place] LPN Licensed Practical Nurse Family Medicine 12/18/23 Auto Damage Trainee Relationship Specialty Start Date End Date Unallocated, Johan Sierra MD [address] [place] [address] PCP - General Family Medicine 01/27/24 Miriam Suarez DO [address] [place] [address] Referring Physician Neurology 06/29/23 [place] LPN Licensed Practical Nurse Family Medicine 12/18/23 Adelaida Carrion, BRIANA [address] [place] [address] Nurse Practitioner Family Medicine 01/27/24 Auto Damage Trainee Relationship Specialty Start Date End Date Unallocated, Johan Sierra MD [address] [facility] [place] [address] PCP - General Family Medicine 01/27/24 Miriam Suarez DO [address] [place] [address] Referring Physician Neurology 06/29/23 [place] LPN Licensed Practical Nurse Family Medicine 12/18/23 Adelaida Carrion, BRIANA [address] [place] [address] Nurse Practitioner Family Medicine 01/27/24 Auto Damage Trainee Relationship Specialty Start Date End Date José Luis Roberts MD [address] [place] [address] PCP - General Family Medicine 02/02/24 Miriam Suarez DO [address] [place] [address] Referring Physician Neurology 06/29/23 [place] LPN Licensed Practical Nurse Family Medicine 12/18/23 Adelaida Carrion, BRIANA [address] [place] [address] Nurse Practitioner Family Medicine 01/27/24 Auto Damage Trainee Relationship Specialty Start Date End Date Naderer, José Luis, MD [address] [place] [address] PCP - General Family Medicine 02/02/24 Miriam Suarez DO [address] [place] [address] Referring Physician Neurology 06/29/23 Adelaida Carrion, BRIANA [address] [place] [address] Nurse Practitioner Family Medicine 01/27/24 Bong Rosado MA Family Medicine 02/12/24 Auto Damage Trainee Relationship Specialty Start Date End Date José Luis Roberts MD [address] [place] [address] PCP - General Family Medicine 02/02/24 Miriam Suarez DO [address] [place], [place] [address] Referring Physician Neurology 06/29/23 Adelaida Carrion, BRIANA [address] [place] [address] Nurse Practitioner Family Medicine 01/27/24 Bong Rosado MA Family Medicine 02/12/24 Auto Damage Trainee Relationship Specialty Start Date End Date José Luis Roberts MD [address] [place] [address] PCP - General Family Medicine 02/02/24 Miriam Suarez DO [address] [place] [address] Referring Physician Neurology 06/29/23 Adelaida Carrion NP [address] [place] [address] Nurse Practitioner Family Medicine 01/27/24 Bong Rosado MA Family Medicine 02/12/24 Auto Damage Trainee Relationship Specialty Start Date End Date José Luis Roberts MD [address] [place] [address] PCP - General Family Medicine 02/02/24 Miriam Suarez DO [address] [place], [place] [address] Referring Physician Neurology 06/29/23 Adelaida Carrion NP [address] [place] [address] Nurse Practitioner Family Medicine 01/27/24 Bong Rosado MA Family Medicine 02/12/24 Auto Damage Trainee Relationship Specialty Start Date End Date José Luis Roberts MD [address] [place] [address] PCP - General Family Medicine 02/02/24 Miriam Suarez DO [address] [place] [address] Referring Physician Neurology 06/29/23 Adelaida Carrion NP [address] [place] [address] Nurse Practitioner Family Medicine 01/27/24 Bong Rosado MA Family Medicine 02/12/24 Auto Damage Trainee Relationship Specialty Start Date End Date Naderer, José Luis, MD [address] [place] [address] PCP - General Family Medicine 02/02/24 Miriam Suarez DO [address] [place] [address] Referring Physician Neurology 06/29/23 Adelaida Carrion, BRIANA [address] [place] [address] Nurse Practitioner Family Medicine 01/27/24 Bong Rosado MA Family Medicine 02/12/24 Auto Damage Trainee Relationship Specialty Start Date End Date José Luis Roberts MD [address] [place] [address] PCP - General Family Medicine 02/02/24 Miriam Suarez DO [address] [place], [place] [address] Referring Physician Neurology 06/29/23 Adelaida Carrion, BRIANA [address] [place] [address] Nurse Practitioner Family Medicine 01/27/24 Bong Rosado MA Family Medicine 02/12/24 Auto Damage Trainee Relationship Specialty Start Date End Date José Luis Roberts MD [address] [place] [address] PCP - General Family Medicine 02/02/24 Miriam Suarez DO [address] [place] [address] Referring Physician Neurology 06/29/23 Adelaida Carrion NP [address] [place] [address] Nurse Practitioner Family Medicine 01/27/24 Bong Rosado MA Family Medicine 02/12/24 Auto Damage Trainee Relationship Specialty Start Date End Date José Luis Roberts MD [address] [place] [address] PCP - General Family Medicine 02/02/24 Miriam Suarez DO [address] [place], [place] [address] Referring Physician Neurology 06/29/23 Adelaida Carrion NP [address] [place] [address] Nurse Practitioner Family Medicine 01/27/24 Bong Rosado MA Family Medicine 02/12/24 Auto Damage Trainee Relationship Specialty Start Date End Date José Luis Roberts MD [address] [place] [address] PCP - General Family Medicine 02/02/24 Miriam Suarez DO [address] [place] [address] Referring Physician Neurology 06/29/23 Adelaida Carrion NP [address] [place] [address] Nurse Practitioner Family Medicine 01/27/24 Bong Rosado MA Family Medicine 02/12/24 Auto Damage Trainee Relationship Specialty Start Date End Date Naderer, José Luis, MD [address] [place] [address] PCP - General Family Medicine 02/02/24 Miriam Suarez DO [address] [place], [place] [address] Referring Physician Neurology 06/29/23 Adelaida Carrion NP [address] [place] [address] Nurse Practitioner Family Medicine 01/27/24 Bong Rosado MA Family Medicine 02/12/24 Auto Damage Trainee Relationship Specialty Start Date End Date José Luis Roberts MD [address] [place] [address] PCP - General Family Medicine 05/18/23 Adelaida Carrion NP Referring Physician Nurse Practitioner 10/14/22 Miriam Suarez DO [address] [place], [place] [address] Referring Physician Neurology 06/29/23 Mathew Parra LPN Licensed Practical Nurse Family Medicine 07/23/23 Auto Damage Trainee Relationship Specialty Start Date End Date José Luis Roberts MD [address] [place] [address] PCP - General Family Medicine 05/18/23 Adelaida Carrion NP Referring Physician Nurse Practitioner 10/14/22 Miriam Suarez DO [address] [place] [address] Referring Physician Neurology 06/29/23 Mathew Parra LPN Licensed Practical Nurse Family Medicine 07/23/23 Auto Damage Trainee Relationship Specialty Start Date End Date José Luis Roberts MD [address] [place] [address] PCP - General Family Medicine 05/18/23 Adelaida Carrion NP Referring Physician Nurse Practitioner 10/14/22 Miriam Suarez DO [address] [place] [address] Referring Physician Neurology 06/29/23 Mathew Parra LPN Licensed Practical Nurse Family Medicine 07/23/23 Auto Damage Trainee Relationship Specialty Start Date End Date José Luis Roberts MD [address] [place] [address] PCP - General Family Medicine 05/18/23 Adelaida Carrion NP Referring Physician Nurse Practitioner 10/14/22 Miriam Suarez DO [address] [place] [address] Referring Physician Neurology 06/29/23 Mathew Parra LPN Licensed Practical Nurse Family Medicine 07/23/23 Auto Damage Trainee Relationship Specialty Start Date End Date José Luis Roberts MD [address] [place] [address] PCP - General Family Medicine 05/18/23 Adelaida Carrion NP Referring Physician Nurse Practitioner 10/14/22 Miriam Suarez DO [address] [place], [place] [address] Referring Physician Neurology 06/29/23 [place] LPN Licensed Practical Nurse Family Medicine 12/18/23 Auto Damage Trainee Relationship Specialty Start Date End Date José Luis Roberts MD [address] [place] [address] PCP - General Family Medicine 05/18/23 Adelaida Carrion NP Referring Physician Nurse Practitioner 10/14/22 Miriam Suarez DO [address] [place], [place] [address] Referring Physician Neurology 06/29/23 [place] LPN Licensed Practical Nurse Family Medicine 12/18/23 Auto Damage Trainee Relationship Specialty Start Date End Date José Luis Roberts MD [address] [place] [address] PCP - General Family Medicine 05/18/23 Adelaida Carrion NP Referring Physician Nurse Practitioner 10/14/22 Miriam Suarez DO [address] [place] [address] Referring Physician Neurology 06/29/23 [place] LPN Licensed Practical Nurse Family Medicine 12/18/23 Auto Damage Trainee Relationship Specialty Start Date End Date José Luis Roberts MD [address] [place] [address] PCP - General Family Medicine 02/02/24 Miriam Suarez DO [address] [place] [address] Referring Physician Neurology 06/29/23 Adelaida Carrion NP [address] [place] [address] Nurse Practitioner Family Medicine 01/27/24 Bong Rosado MA Family Medicine 02/12/24 Auto Damage Trainee Relationship Specialty Start Date End Date José Lius Roberts MD [address] [place] [address] PCP - General Family Medicine 02/02/24 Miriam Suarez DO [address] [place] [address] Referring Physician Neurology 06/29/23 Adelaida Carrion NP [address] [place] [address] Nurse Practitioner Family Medicine 01/27/24 Bong Rosado MA Family Medicine 02/12/24 Auto Damage Trainee Relationship Specialty Start Date End Date José Luis oRberts MD [address] [place] [address] PCP - General Family Medicine 02/02/24 Miriam Suarez DO [address] [place] [address] Referring Physician Neurology 06/29/23 Adelaida Carrion NP [address] [place] [address] Nurse Practitioner Family Medicine 01/27/24 Bong Rosado MA Family Medicine 02/12/24 Auto Damage Trainee Relationship Specialty Start Date End Date José Luis Roberts MD [address] [place] [address] PCP - General Family Medicine 02/02/24 Miriam Suarez DO [address] [place], [place] [address] Referring Physician Neurology 06/29/23 Adelaida Carrion NP [address] [place] [address] Nurse Practitioner Family Medicine 01/27/24 Bong Rosado MA Family Medicine 02/12/24 Auto Damage Trainee Relationship Specialty Start Date End Date José Luis Roberts MD [address] [place] [address] PCP - General Family Medicine 02/02/24 Miriam Suarez DO [address] [place] [address] Referring Physician Neurology 06/29/23 Adelaida Carrion NP [address] [place] [address] Nurse Practitioner Family Medicine 01/27/24 Bong Rosado MA Family Medicine 02/12/24 Auto Damage Trainee Relationship Specialty Start Date End Date José Luis Roberts MD [address] [place] [address] PCP - General Family Medicine 02/02/24 Miriam Suarez DO [address] [place], [place] [address] Referring Physician Neurology 06/29/23 Adelaida Carrion NP [address] [place] [address] Nurse Practitioner Family Medicine 01/27/24 Bong Rosado MA Family Medicine 02/12/24 Auto Damage Trainee Relationship Specialty Start Date End Date José Luis Roberts MD [address] [place] [address] PCP - General Family Medicine 02/02/24 Miriam Suarez DO [address] [place], [place] [address] Referring Physician Neurology 06/29/23 Adelaida Carrion, BRIANA [address] [place] [address] Nurse Practitioner Family Medicine 01/27/24 Bong Rosado MA Family Medicine 02/12/24 Juany Leggett PA [address] [place], [place] [address] Physician Internal Grinder Set Up Operator Neurology 07/26/24 Auto Damage Trainee Relationship Specialty Start Date End Date José Luis Roberts MD [address] [place] [address] PCP - General Family Medicine 02/02/24 Miriam Suarez DO [address] [place] [address] Referring Physician Neurology 06/29/23 Adelaida Carrion NP [address] [place] [address] Nurse Practitioner Family Medicine 01/27/24 Bong Rosado MA Family Medicine 02/12/24 Juany Leggett PA [address] [place] [address] Physician Internal Grinder Set Up Operator Neurology 07/26/24 Auto Damage Trainee Relationship Specialty Start Date End Date José Luis Roberts MD [address] [place] [address] PCP - General Family Medicine 02/02/24 Miriam Suarez DO [address] [place] [address] Referring Physician Neurology 06/29/23 Adelaida Carrion NP [address] [place] [address] Nurse Practitioner Family Medicine 01/27/24 Bong Rosado MA Family Medicine 02/12/24 Juany Leggett PA [address] [place], [place] [address] Physician Internal Grinder Set Up Operator Neurology 07/26/24 Auto Damage Trainee Relationship Specialty Start Date End Date José Luis Roberts MD [address] [place] [address] PCP - General Family Medicine 02/02/24 Miriam Suarez DO [address] [place] [address] Referring Physician Neurology 06/29/23 Adelaida Carrion NP [address] [place] [address] Nurse Practitioner Family Medicine 01/27/24 Bong Rosado MA Family Medicine 02/12/24 Juany Leggett PA [address] [place], [place] [address] Physician Internal Grinder Set Up Operator Neurology 07/26/24 Auto Damage Trainee Relationship Specialty Start Date End Date José Luis Roberts MD [address] [place] [address] PCP - General Family Medicine 02/02/24 Miriam Suarez DO [address] [place], [place] [address] Referring Physician Neurology 06/29/23 Adelaida Carrion NP [address] [place] [address] Nurse Practitioner Family Medicine 01/27/24 Bong Rosado MA Family Medicine 02/12/24 Juany Leggett PA [address] [place], [place] [address] Physician Internal Grinder Set Up Operator Neurology 07/26/24 Auto Damage Trainee Relationship Specialty Start Date End Date José Luis Roberts MD [address] [place] [address] PCP - General Family Medicine 02/02/24 Miriam Suarez DO [address] [place] [address] Referring Physician Neurology 06/29/23 Adelaida Carrion, BRIANA [address] [place] [address] Nurse Practitioner Family Medicine 01/27/24 Bong Rosado MA Family Medicine 02/12/24 Juany Leggett PA [address] [place], [place] [address] Physician Internal Grinder Set Up Operator Neurology 07/26/24 Auto Damage Trainee Relationship Specialty Start Date End Date José Luis Roberts MD [address] [place] [address] PCP - General Family Medicine 02/02/24 Miriam Suarez DO [address] [place] [address] Referring Physician Neurology 06/29/23 Adelaida Carrion, BRIANA [address] [place] [address] Nurse Practitioner Family Medicine 01/27/24 Bong Rosado, [place] [address] [place] [address] Family Medicine 02/12/24 Juany Leggett PA [address] [place] [address] Physician Internal Grinder Set Up Operator Neurology 07/26/24 REASON FOR VISIT (unrecogniz ed [...] BE BASED ON THE PRIMARY CLINICAL RECORDS. [employer] [facility]. provides no warranty or guarantee of the accuracy or completeness of information in this document.
--- OUTSIDE RECORDS SUMMARY | 2024-10-08 02:19 | XMS_ITS | Encounter Summary ---
Author Organization [facility] Address [address] [facility] [place] [address] Care Team Providers Care Carpenter Assembler Name Role Phone Adelaida Carrion NP Unavailable [phone] José Luis Roberts MD Primary Care Provider [phone] José Luis Roberts MD Primary Care Provider [phone] Miriam Suarez DO Unavailable [phone] [place], Ardana SUPERVISOR GAS METER REPAIR Unavailable Unavailable Aida Ardana SUPERVISOR GAS METER REPAIR Unavailable Unavailable Diana De Leon SUPERVISOR GAS METER REPAIR Unavailable Unallocated, Noms Provider Primary Care Provi kellee Adelaida Carrion NP Unavailable [phone] José Luis Roberts MD Primary Care Provider [phone] Bong Rosado MA Unavailable [phone] Juany Leggett Unavailable Encounter Details Date Type Department Care Team (Late st Contact Info) Description 03/06/2023 Clinisync Result Encounter [facility] External Department Unsolicited Ashleigh Hines PA [address] [facility] [address] [place] [address] Social History Tobacco Use Types Packs/Day Years [...] [facility] [address] [place] [address] Adelaida Carrion NP [address] [place] [address] documented as of this encounter Procedures Procedure Name Priority Date/Time Associated Diagnosis Comments KNEE RT WO CON 03/06/2023 3:5 5 PM EST documented in this encounter Results * MR KNEE RT WO CON (03/06/2023 3:55 PM EST) Anatomical Region Laterality Modality Other 03/06/2023 3:55 PM EST Narrative 03/06/2023 3:55 PM EST [address] [address] Magnetic Resonance Report Signed Patient: NASIM BE MR#: [id number] : 1960 Acct:[id number] Age/Sex: 62 / F ADM Date: 03/06/23 Loc: MRI Attending Dr: Ashleigh REDDY Ordering Physician: Ashleigh Hines Date of Service: 03/06/23 Procedure(s): knee RT wo con Accession Number(s): [id number] cc: Adelaida Carrion CONTRACTS REPRESENTATIVE; Ashleigh Hines [address] [address] Patient Name: NASIM BE MRN: [id number] date: 1960 Sex: F Assigned Patient Location: MRI Current Patient Location: MRI Accession/Order Number: [id number] Exam Date: 03/06/2023 09:30 Report Date: 03/06/2023 [...] By: 03/06/23 1558 DD/ 1555 TD/TT: Fruit Inspector: Procedure Note Radiology, Radiologist, - 03/06/2023 [place] [address] Magnetic Resonance Report Signed Patient: NASIM BE LMR#: [id number] : 1960cct:[id number] Age/Sex: 62 / FADM Date: 03/06/23 Loc: MRI Attending Dr: Ashleigh REDDY Ordering Physician: Ashleigh Hines Date of Service: 03/06/23 Procedure(s): MR knee RT wo con Accession Number(s): [id number] cc: Adelaida Carrion NP; Ashleigh Hines [place] [address] Patient Name: NASIM BE MRN: [facility]:[id number] date: 1960 Sex: F Assigned Patient Location: MRI Current Patient Location: MRI Accession/Order Number: [id number] Exam Date: 03/06/2023 09:30 Report Date: 03/06/2023 [...] Signed By:03/06/23 1558 DD/ 1555 TD/TT: Fruit Inspector: us Ashleigh REDDY [facility] Final Resul t documented in this encounter Visit Diagnoses Not on filedocumented in this encounter Care Teams Carpenter Assembler Relationship Specialty Start Date End Date José Luis Roberts MD PCP - General Family Medicine 10/14/22 05/17/23 José Luis Roberts MD [address] [place] [address] PCP - General Family Medicine 05/18/23 01/26/24 Unallocated, Noms MD Mariela [address] [place] [address] PCP - General Family Medicine 01/27/24 02/01/24 José Luis Roberts MD [address] [place] [address] PCP - General Family Medicine 02/02/24 Adelaida Carrion NP Referring Physician Nurse Practitioner 10/14/22 Miriam Suarez DO [address] [place] [address] Referring Physician Neurology 06/29/23 Mathew Parra LPN Registered Nurse Family Medicine 07/07/23 07/08/23 Mathew Parra LPN Licensed Practical Nurse Family Medicine 07/23/23 Diana De Leon LPN [address] [place], [place] [address] Licensed Practical Nurse Family Medicine 12/18/2302/11 Adelaida Carrion NP [address] [place] [address] Nurse Practitioner Family Medicine 01/27/24 Bong Rosado, [place] [address] [place] [address] Family Medicine 02/12/24 Juany Leggett PA [address] [place] [address] Physician Electrician Rectifier Maintenance Neurology 07/26/24 documented as of this encounter
--- OUTSIDE RECORDS SUMMARY | 2024-10-08 02:19 | XMS_ITS | Encounter Summary ---
Author Organization [facility] Address [address] [place] [address] Care Team Providers Care Experimental Outboard Motors Mechanic Name Role Phone Adelaida Carrion NP Unavailable [phone] José Luis Roberts MD Primary Care Provider [phone] Miriam Suarez DO Unavailable [phone] Mathew Parra MOTEL FRONT DESK ATTENDANT Unavailable Unavailable Diana De Leon LPN Unavailable Unallocated, Noms Provider Primary Care Provi kellee Adelaida Carrion NP Unavailable [phone] José Luis Roberts MD Primary Care Provider [phone] Bong Rosado MA Unavailable [phone] Juany Leggett Unavailable Encounter Details Date [...] How often do you attend yarsani or congregation serv ices? Never 08/16/2023 Do you belong [...] Recorded Patient Health Questionnaire-2 Score 2 09/21/2023 [facility] [place] of Occupat ional Health - Occupational Stress [...] place to sleep or slept in a long-term (including now)? No 08/16/2023 Housing Stability Vital [...] Visit [facility] [address] [place] [address] Adelaida Carrion NP [address] [place] [address] documented as of this encounter Procedures Procedure Name Priority Date/Time Associated Diagnosis Comments XR THORACIC SPINE 2 VIEWS 12/02/2023 2:53 PM EDT documented in this encounter Results * XR thoracic spine 2 views (12/02/2023 2:53 PM EDT) Anatomical Region Laterality Modality Spine, T-spine Radiographic Nelda ging 12/02/2023 2:53 PM EDT Narrative 12/02/2023 2:55 PM EDT [place] [id number] XRay Report Signed Patient: NASIM INGRAM MR#: [id number] : 1960 Acct:[id number] Age/Sex: 62 / F ADM Date: 12/02/23 Loc: RAD Attending Dr: Elizabeth Cano BROACHING MACHINE REPAIRER Ordering Physician: Elizabeth Cano NP Date of Service: 12/02/23 Procedure(s): XR thoracic spine 2V Accession Number(s): [id number] cc: Adelaida Carrion BROACHING MACHINE REPAIRER; Elizabeth Cano NP [address] [address] Patient Name: NASIM INGRAM MRN: [id number] date: 1960 Sex: F Assigned Patient Location: [facility] Current Patient Location: [facility] Accession/Order Number: [id number] Exam Date: 12/02/2023 14:10 Report Date: 12/02/2023 [...] Signed By: 12/02/23 1455 DD/ 1453 TD/TT: Product Tester: Procedure Note Radiology, Radiologist, MD - 12/02/2023 [place] [address] XRay Report Signed Patient: NASIM INGRAM LMR#: [id number] : 1960cct:[id number] Age/Sex: 62 / FADM Date: 12/02/23 Loc: [facility] Attending Dr: Elizabeth Cano NP Ordering Physician: Elizabeth Cano NP Date of Service: 12/02/23 Procedure(s): XR thoracic spine 2V Accession Number(s): [id number] cc: Adelaida Carrion NP; Elizabeth Cano NP The [address] [address] Patient Name: NASIM INGRAM MRN: [id number] date: 1960 Sex: F Assigned Patient Location: [facility] Current Patient Location: [facility] Accession/Order Number: [id number] Exam Date: 12/02/2023 14:10 Report Date: 12/02/2023 [...] M.D. Signed By:12/02/23 1455 DD/ 1453 TD/TT: Product Tester: us Generic External Data Provider IMG XR PROCEDURES Final Result documented in this encounter Visit Diagnoses Not on filedocumented in this encounter Additional Health Concerns Assessment Noted Time PHQ-9 Depression Total Score: 8 05/18/19 24 5:00 PM EST documented as of this encounter Care Teams Experimental Outboard Motors Mechanic Relationship Specialty Start Date End Date José Luis Roberts MD [address] [place] [address] PCP - General Family Medicine 05/18/23 01/26/24 Unallocated, Noms ProviderMD [address] [place] [address] PCP - General Family Medicine 01/27/24 02/01/24 José Luis Roberts MD [address] [place] [address] PCP - General Family Medicine 02/02/24 Adelaida Carrion NP Referring Physician Nurse Practitioner 10/14/22 Miriam Suarez DO [address] [place] [address] Referring Physician Neurology 06/29/23 aMthew Parra LPN Licensed Practical Nurse Family Medicine 07/23/23 Diana De Leon LPN [address] [place] [address] Licensed Practical Nurse Family Medicine 12/18/2302/11 Adelaida Carrion NP [address] [place] [address] Nurse Practitioner Family Medicine 01/27/24 Bong Rosado, [place] [address] [place] [address] Family Medicine 02/12/24 Juany Leggett PA [address] [place], [place] [address] Physician General Office Assistant Neurology 07/26/24 documented as of this encounter
--- OUTSIDE RECORDS SUMMARY | 2024-10-08 02:19 | XMS_ITS | Encounter Summary ---
Author Organization [facility] Address [address] [place] [address] Care Team Providers Care Insole Department Worker Name Role Phone Adelaida Carrion NP Unavailable [phone] José Luis Roberts MD Primary Care Provider [phone] José Luis Roberts MD Primary Care Provider [phone] Miriam Suarez DO Unavailable [phone] [place], Ardana BUSINESS TAXES SPECIALIST Unavailable Unavailable Fran Parradana BUSINESS TAXES SPECIALIST Unavailable Unavailable Diana De Leon BUSINESS TAXES SPECIALIST Unavailable Unallocated, Noms Provider Primary Care Provi kellee Adelaida Carrion SUPERVISOR MAIL CARRIERS Unavailable José Luis Roberts MD Primary Care Provider [phone] Bong Rosado MA Unavailable [phone] Juany Leggett Unavailable Encounter Details Date Type Department Care Team (Late st Contact Info) Description 01/09/2023 Abstract [facility] [address] [facility] [address] [place] [address] Travon Hines PA [address] [facility] 150 [place] [address] Social History Tobacco Use Types Packs/Day Years [...] Visit [facility] [address] [place] [address] Adelaida Carrion NP [address] [place] [address] documented as of this encounter Visit Diagnoses Not on filedocumented in this encounter Care Teams Insole Department Worker Relationship Specialty Start Date End Date José Luis Roberts MD PCP - General Family Medicine 10/14/22 05/17/23 José Luis Roberts MD [address] [place] [address] PCP - General Family Medicine 05/18/23 01/26/24 Unallocated, Johan Sierra MD [address] [place] [address] PCP - General Family Medicine 01/27/24 02/01/24 José Luis Roberts MD [address] [place] [address] PCP - General Family Medicine 02/02/24 Adelaida Carrion NP Referring Physician Nurse Practitioner 10/14/22 Miriam Suarez DO [address] [place], [place] [address] Referring Physician Neurology 06/29/23 Mathew Parra LPN Registered Nurse Family Medicine 07/07/23 07/08/23 Mathew Parra LPN Licensed Practical Nurse Family Medicine 07/23/23 Diana De Leon LPN [address] [place] [address] Licensed Practical Nurse Family Medicine 12/18/2302/11 Adelaida Carrion NP [address] [place] [address] Nurse Practitioner Family Medicine 01/27/24 Bong Rosado, [place] [address] [place] [address] Family Medicine 02/12/24 Juany Leggett PA [address] [place] [address] Physician Home Care Physical Therapist Neurology 07/26/24 documented as of this encounter
--- OUTSIDE RECORDS SUMMARY | 2024-10-08 02:19 | XMS_ITS | Encounter Summary ---
Author Organization [facility] Address [address] [place] [address] Care Team Providers Care Board Certified Music Therapist Name Role Phone Miriam Suarez DO Unavailable [phone] Adelaida Carrion NP Unavailable [phone] José Luis Roberts MD Primary Care Provider Bong Rosado MA Unavailable [phone] Juany Leggett Unavailable Encounter Details Date Type Department Care Team (Late st Contact Info) Description 03/17/2024 Orders Only [facility] [address] [place] [address] Adelaida Carrion, BRIANA [address] [place] [address] Social History Tobacco Use Types Packs/Day Years [...] declined 08/16/2023 How often do you attend baptist or jew serv ices? Never 08/16/2023 Do you belong to any clubs o r organizations such as baptist groups, unions, fraternal or athletic groups, or [...] Score 2 09/21/2023 [facility] [...] Visit [facility] [address] [place] [address] Adelaida Carrion NP [address] [place] [address] documented as of this encounter Procedures Procedure [...] documented as of this encounter Care Teams Board Certified Music Therapist Relationship Specialty Start Date End Date José Luis Roberts MD [address] [place] [address] PCP - General Family Medicine 02/02/24 Miriam Suarez DO [address] [place] [address] Referring Physician Neurology 06/29/23 Adelaida Carrion NP [address] [place] [address] Nurse Practitioner Family Medicine 01/27/24 Bong Rosado MA [address] [place] [address] Family Medicine 02/12/24 Juany Leggett PA [address] [place] [address] Physician Mails Supervisor Neurology 07/26/24 documented as of this encounter
--- OUTSIDE RECORDS SUMMARY | 2024-10-08 02:19 | XMS_ITS | Clinical Summary ---
Author Organization [facility] Address [address] [place] [place] [address] Care Team Providers Care Firearms Sales Associate Name Role Phone Unavailable Primary Care Provider [...]
--- OUTSIDE RECORDS SUMMARY | 2024-10-08 02:19 | XMS_ITS | Encounter Summary ---
Author Organization [facility] Address [address] [place] [address] Care Team Providers Care Ammonia Print Operator Name Role Phone Adelaida Carrion NP Unavailable [phone] José Luis Roberts MD Primary Care Provider [phone] Miriam Suarez DO Unavailable [phone] Mathew Parra MIDDLEWARE CONSULTANT Unavailable Unavailable Diana De Leon MIDDLEWARE CONSULTANT Unavailable Unallocated, Noms Provider Primary Care Provi kellee Adelaida Carrion NP Unavailable [phone] José Luis Roberts MD Primary Care Provider [phone] Bong Rosado MA Unavailable [phone] Juany Leggett Unavailable Encounter Details Date Type Department Care Team (Late st Contact Info) Description 07/14/2023 Orders Only [facility] [address] [place] [address] Adelaida Carrion NP [address] [place] [address] Social History Tobacco Use Types [...] Never 05/18/2023 How often do you attend taoist or buddhism serv ices? Never 05/18/2023 Do you belong [...] Recorded Patient Health Questionnaire-2 Score 0 07/07/2023 [facility] [place] of Occupat ional Health - Occupational Stress [...] [facility] [address] [place] [address] Adelaida Carrion NP [address] [place] [address] documented as of this encounter Procedures Procedure Name Priority Date/Time Associated Diagnosis Comments XR CHEST 1 VIEW Routine 07/11/2023 9:09 AM EDT documented in this encounter Results * XR chest 1 view (07/11/2023 9:09 AM EDT) Anatomical Region Laterality Modality Chest Radiographic Nelda ging Adelaida Carrion STOCK PREPARATION OPERATOR IMG XR PROCEDURES Final Result documented in this encounter Visit Diagnoses Not on filedocumented in this encounter Additional Health Concerns Assessment Noted Time PHQ-9 Depression Total Score: 8 05/18/19 24 5:00 PM EST documented as of this encounter Care Teams Ammonia Print Operator Relationship Specialty Start Date End Date José Luis Roberts MD [address] [place] [address] PCP - General Family Medicine 05/18/23 01/26/24 Unallocated, Noms Provider, [address] [place] [address] PCP - General Family Medicine 01/27/24 02/01/24 José Luis Roberts MD [address] [place] [address] PCP - General Family Medicine 02/02/24 Adelaida Carrion NP Referring Physician Nurse Practitioner 10/14/22 Miriam Suarez DO [address] [place] [address] Referring Physician Neurology 06/29/23 Mathew Parra LPN Licensed Practical Nurse Family Medicine 07/23/23 Diana De Leon, ADRIAN [address] [place], [place] [address] Licensed Practical Nurse Family Medicine 12/18/2302/11 Adelaida Carrion NP [address] [place] [address] Nurse Practitioner Family Medicine 01/27/24 Bong Rosado, [place] [address] [place] [address] Family Medicine 02/12/24 Juany Leggett PA [address] [place] [address] Physician Microbiology Laboratory Manager Neurology 07/26/24 documented as of this encounter
--- OUTSIDE RECORDS SUMMARY | 2024-10-08 02:19 | XMS_ITS | Encounter Summary ---
Author Organization [facility] Address [address] [place] [address] Care Team Providers Care Circus Artist Name Role Phone Adelaida Carrion NP Unavailable [phone] José Luis Roberts MD Primary Care Provider [phone] Miriam Suarez DO Unavailable [phone] Mathew Parra STITCHING MACHINE SETTER Unavailable Unavailable Diana De Leon LPN Unavailable Unallocated, Noms Provider Primary Care Provi kellee Adelaida Carrion NP Unavailable [phone] José Luis Roberts MD Primary Care Provider [phone] Bong Rosado MA Unavailable [phone] Juany Leggett Unavailable Encounter Details Date Type Department Care Team (Late st Contact Info) Description 12/02/2023 Orders Only [facility] [address] [place] [address] Bhakti Culp NP [address] [place] [address] Social History Tobacco Use Types [...] How often do you attend quaker or mormonism serv ices? Never 08/16/2023 Do you belong [...] Questionnaire-2 Score 2 09/21/2023 [facility] of Occupat ional Health - [...] Office Visit [facility] [address] [place] [address] Adelaida Carrion NP [address] [place] [address] documented as of this encounter Procedures Procedure [...] documented as of this encounter Care Teams Circus Artist Relationship Specialty Start Date End Date José Luis Roberts MD [address] [place] [address] PCP - General Family Medicine 05/18/23 01/26/24 Unallocated, Johan Sierra MD [address] [place] [address] PCP - General Family Medicine 01/27/24 02/01/24 José Luis Roberts MD [address] [place] [address] PCP - General Family Medicine 02/02/24 Adelaida Carrion NP Referring Physician Nurse Practitioner 10/14/22 Miriam Suarez DO [address] [place], [place] [address] Referring Physician Neurology 06/29/23 Mathew Parra LPN Licensed Practical Nurse Family Medicine 07/23/23 Diana De Leon LPN [address] [place] [address] Licensed Practical Nurse Family Medicine 12/18/2302/11 Adelaida Carrion NP [address] [place] [address] Nurse Practitioner Family Medicine 01/27/24 Bong Rosado MA [address] [place] [address] Family Medicine 02/12/24 Juany Leggett PA [address] [place] [address] Physician Intelligence Intern Neurology 07/26/24 documented as of this encounter
--- OUTSIDE RECORDS SUMMARY | 2024-10-08 02:19 | XMS_ITS | Clinical Summary ---
Author Organization [facility] Healthcare Address [address] [place] [address] Care Team Providers Care Clerical Aide Teacher Name Role Phone Miriam Suarez DO Unavailable [phone] Adelaida Carrion NP Unavailable [phone] José Luis Roberts MD Primary Care Provider Bong Rosado MA Unavailable [phone] Juany Leggett Unavailable Allergies Active Allergy Reactions Criticality Noted Date Comments Eszopiclone Hallucinations,Anaph ylaxis High 09/21/2023 Altered mental status and non responsive Levetiracetam Hallucinations,Other Medium 12/12/2021 Milnacipran Hallucinations,Other ,Unknown Medium 12/12/2021 Other Other 12/12/2021 Penicillins Anaphylaxis High 12/12/2021 Prochlorperazine Unknown,Other Medium 12/12/2021 Tetracycline Hives,Unknown High 12/12/2021 Wound Dressing Adhesive Rash,Unknown Medium 09/19/2022 Medications Multiple Vitamins-Minerals (BARIATRIC MULTIVITAMINS/IRO N PO) Pt taking OTC (Storspeed) Active biotin 5 MG tablet Pt taking OTC (Storspeed) Active Calcium Citrate-Vitamin D (CITRACAL + D PO) Pt taking OTC (En Noir) Active Magnesium 400 MG capsule Pt taking OTC(Lakoo) Active traZODone (Desyrel) 150 MG tablet Take [...] the ECHO on file from 05/10/2019 at [facility], as well as ECHO report from Mara Sampson earlier this year Well woman exam with routine gynecological exam 02/16/2024 Assessment & Plan (02/16/2024 6:57 AM EST): THIN PREP, fu as per PAP results indicate Monthly BSE Calcium/vit D supplement unless chronic conditions indicate not Exercise as chronic conditions allow Needs flu shot 01/28/2024 AVM (arteriovenous malformation) brain ([facility]) 10/11/2023 Vascular malformation ([facility]) 10/11/2023 Brain lesion 10/11/2023 Carpal tunnel syndrome, [...] (09/21/2023 12:47 PM EDT): Reviewed notes from [facility]'s Former cigarette smoker 08/17/2023 Overview [...] that supplies your machine and tubing/filters etc: [facility] Doctor that manages your OSMANY: Daniela Assessment [...] 1 twice a day #14 pills, Lot [id number], exp 06/29 Acute cough 07/14/2023 10/21/2023 Assessment & Plan (08/17/2023 10:06 AM EDT): resolved Influenza 07/14/2023 10/21/2023 Acute cystitis with hematuria 05/21/2023 10/21/2023 Right sided weakness 05/18/2023 024 Hemorrhoid 05/18/2023 03/16/2024 Overview (05/18/2023): int/external hemorrhoids Brain vascular malformation ([facility]) 05/18/2023 03/16/2024 Constipation 05/18/2023 08/17/2023 Colon polyps [...] of the risks of continued smoking: stroke, [place], all forms of cancer, lung disease, and [...] Encounters Date Type Department Care Team Description 09/29/2024 Abstract [facility] [address] [place] [address] Adelaida Carrion NP 09/29/2024 Clinisync Result Encounter NOMS External Department Unsolicited Provider, Generic External Data 09/26/2024 Clinisync Result Encounter NOMS External Department Unsolicited Adelaida Carrion NP 09/26/2024 Clinisync Result Encounter NOMS External Department Unsolicited Adelaida Carrion NP 09/26/2024 Clinisync Result Encounter NOMS External Department Unsolicited Provider, Generic External Data 09/21/2024 Patient Outreach [facility] [address] [place] [address] Bong Rosado MA 09/19/2024 Abstract [facility] [address] [place] [address] Adelaida Carrion NP 08/30/2024 Patient Outreach [facility] [address] [place] [address] Bong Rosado MA 08/16/2024 11:30 AM EDT Office Visit [facility] [address] [place] [address] Adelaida Carrion NP Primary hypertension (Primary Dx); Bronchitis; Bilateral lower extremity edema; Morbid (severe) obesity due to excess calories ([facility]); Pre-diabetes; Allergic rhinitis, unspecified seasonality, unspecified trigger; Encounter for screening mammogram for malignant neoplasm of breast; Former cigarette smoker 08/16/2024 Bamboo flowsheet [facility] [address] [place] [address] Adelaida Carrion NP 08/08/2024 [facility] [address] [place] [address] José Luis Roberts MD 07/27/2024 11:30 AM EDT Office Visit [facility] [address] [place] [address] Adelaida Carrion NP Primary hypertension (Primary Dx); Morbid (severe) obesity due to excess calories ([facility]); Essential (primary) hypertension ; Allergic rhinitis, unspecified; Gastro-esophageal reflux disease without esophagitis; Bilateral lower extremity edema; Bronchitis 07/27/2024 Bamboo flowsheet [facility] [address] [place] [address] Adelaida Carrion NP 07/26/2024 11:00 AM EDT Office Visit [facility] [address] [phone] Juany Leggett PA OSMANY (obstructive sleep apnea) (Primary Dx); Restless leg; 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HCC); Concentration deficit 07/26/2024 Patient Outreach [facility] [address] [place] [address] Bong Rosado MA 07/26/2024 Bamboo flowsheet [facility] [address] [phone] Juany Leggett PA from Last 3 Months Immunizations Immunization Administration [...] How often do you attend jainism or mandaen serv ices? Never 08/16/2023 Do [...] 2 09/21/2023 [facility] Questionnaire Answer [...] Visit [facility] [address] [place] [address] Adelaida Carrion NP [address] [place] [address] Health Maintenance Due Date Last Done Comments CT Colonography 1961 FIT-DNA 1961 FIT 1960 FOBT 1960 Lung Cancer Screening Shared Decision Making 1961 Sigmoidoscopy 1960 HPV/Cotest 12/06/1991 Influenza Vaccine (#1) 2024 , 02/13/2023, 05/28/2018 Medicare Annual Wellness (AWV) 02/15/2025 02/16/2024 , 05/18/2023 Cervical Cancer Screening 08/28/2025 Pap Smear 08/28/2025 08/28/2022 Mammogram 09/26/2025 09/26/2024, 09/04, 09/18/2023, Additional history exists Colonoscopy 03/23/2033 03/23/2023, 02/04/2013 Colorectal Cancer Screening 03/23/2033 Procedures Procedure Name Priority Date/Time Associated Diagnosis Comments XR HIPS BILATERAL 2 VW WITH OR WITHOUT PELVIS 09/29/2024 11:[address] LUNG SCREENING LOW DOSE 09/26/2024 5:02 PM EDT MM TOMOSYNTHESIS SCREENING BI 09/26/2024 4:42 PM EDT XR SHOULDER RT MIN 2V 09/26/2024 1:35 PM EDT POCT GLYCOSYLATED HEMOGLOBIN (HGB A1C) Routine 08/16/2024 11:53 AM EDT Pre-diabetes from Last 3 Months Results * XR hips bilateral 2 views (09/29/2024 11:23 AM EDT) Anatomical Region Laterality Modality Lower Extremities, Hip Bilateral Radiograp hic Imaging 09/29/2024 11:2 3 AM EDT Narrative 09/29/2024 11:26 AM EDT The [address] [address] XRay Report Signed Patient: NASIM BE MR#: [id number] : 1960 Acct:[id number] Age/Sex: 63 / F ADM Date: 09/29/24 Loc: RAD Attending Dr: Elizabeth Culp NP Ordering Physician: Elizabeth Culp NP Date of Service: 09/29/24 Procedure(s): XR hip BHUMI Accession Number(s): [id number] cc: Adelaida Carrion NP; Elizabeth Culp NP The [place] [id number] Patient Name: NASIM BE MRN: [facility]:[id number] date: 1960 Sex: F Assigned Patient Location: [facility] Current Patient Location: [facility] Accession/Order Number: [id number] Exam Date: 09/29/2024 11:20 Report Date: 09/29/2024 [...] Bernal M.D. 09/29/2024 11:23 AM Dictation Location: [place] [address] Electronically authenticated by: [id number] Y Date: 09/29/2024 11:23 Dictated By: Edith Bernal M.D. Signed By: 09/29/24 1126 DD/ 1123 TD/TT: Chief Nurse Executive: Procedure Note Radiology, Radiologist, - 09/29/2024 [place] [address] XRay Report Signed Patient: NASIM BE LMR#: [id number] : 1960cct:[id number] Age/Sex: 63 / FADM Date: 09/29/24 Loc: RAD Attending Dr: Elizabeth Culp NP Ordering Physician: Elizabeth Culp NP Date of Service: 09/29/24 Procedure(s): XR hip BHUMI Accession Number(s): [id number] cc: Adelaida Carrion NP; Elizabeth Culp NP [place] [address] Patient Name: NASIM BE MRN: [facility]:[id number] date: 1960 Sex: F Assigned Patient Location: [facility] Current Patient Location: [facility] Accession/Order Number: [id number] Exam Date: 09/29/2024 11:20 Report Date: 09/29/2024 [...] Bernal M.D. 09/29/2024 11:23 AM Dictation Location: [place] [address] Electronically authenticated by: [id number] Y Date: 1:23 Dictated By: Edith Bernal M.D. Signed By:09/29/24 1126 DD/ 1123 TD/TT: Chief Nurse Executive: us Generic External Data Provider IMG XR PROCEDURES Final Result * CT LUNG SCREENING LOW DOSE (09/26/2024 5:02 PM EDT) Anatomical Region Laterality Modality Other 09/26/2024 5:02 PM EDT Narrative 09/26/2024 5:04 PM EDT The [address] [address] [address] Scan Report Signed Patient: NASIM BE MR#: [id number] : 1960 Acct:[id number] Age/Sex: 63 / F ADM Date: 09/26/24 [facility]: Adelaida Carrion NP Ordering Physician: Adelaida Carrion NP Date of Service: 09/26/24 Procedure(s): CT lung screening low-dose Accession Number(s): [id number] cc: Adelaida Carrion NP The [place] [phone] Patient Name: NASIM BE MRN: [id number]:[id number] date: 1960 Sex: F Assigned Patient Location: [facility] Current Patient Location: [facility] Accession/Order Number: [id number] Exam Date: 09/26/2024 16:58 Report Date: 09/26/2024 [...] Guadalupe M.D. 09/26/2024 5:02 PM Dictation Location: [place] [address] Electronically authenticated by: [id number] Date: 09/26/2024 17:02 Dictated By: Shaheed Guadalupe M.D. Signed By: 09/26/241703 DD/ 01 TD/TT: Chief Nurse Executive: Procedure Note Radiology, Radiologist, MD - 09/26/2024 [place] [address] CT Scan Report Signed Patient: NASIM BE LMR#: [id number] : 1960cct:[id number] Age/Sex: 63 / FADM Date: 09/26/24 Loc: MAMMO Attending Dr: Adelaida Carrion NP Ordering Physician: Adelaida Carrion NP Date of Service: 09/26/24 Procedure(s): CT lung screening low-dose Accession Number(s): [id number] cc: Adelaida Carrion NP The [place] [id number] Patient Name: NASIM BE MRN: [facility]:[id number] date: 1960 Sex: F Assigned [facility] Current Patient Location: RAD Accession/Order Number: [id number] Exam Date: 09/26/2024 16:58 Report Date: 09/26/2024 [...] Guadalupe M.D. 09/26/2024 5:02 PM Dictation Location: [place] [address] Electronically authenticated by: [id number] Y Date: 7:02 Dictated By: Shaheed Guadalupe M.D. Signed By:09/26/241703 DD/ 01 TD/TT: Chief Nurse Executive: Adelaida Carrion NP [facility] Final Result * MM TOMOSYNTHESIS SCREENING BI (09/26/2024 4:42 PM EDT) Anatomical Region Laterality Modality Other 09/26/2024 4:42 PM EDT Narrative 09/26/2024 4:43 PM EDT The [address] [address] Mammography Report Signed Patient: NASIM BE MR#: [id number] : 1960 Acct:[id number] Age/Sex: 63 / F ADM Date: 09/26/24 Loc: MAMMO Attending Dr: Adelaida Carrion NP Ordering Physician: Adelaida Carrion NP Results: Date of Service: 09/26/24 Follow Up: Procedure(s): MM tomosynthesis screening BI Accession Number(s): [id number] cc: Adelaida Carrion NP Patient Name: NASIM BE MR#: [id number] : 1960 Exam Date: 09/26/2024 Ordering Doctor: LIVIER CARRION MECHANICAL HANDYMAN RADIOLOGY REPORT PROCEDURE: MM TOMOSYNTHESIS SCREENING BI [...] Treatments None Family Cancers None LOCATION: The [facility] BREAST COMPOSITION: There are scattered areas of [...] Dictated By: Olu Grover M.D. Signed By: 09/26/24 1643 DD/ 164 TD/TT: Chief Nurse Executive: Procedure Note Radiology, Radiologist, MD - 09/26/2024 [place] [address] Mammography Report Signed Patient: NASIM BE LMR#: [id number] : 1960cct:[id number] Age/Sex: 63 / FADM Date: 09/26/24 Loc: MAMMO Attending Dr: Adelaida Carrion NP Ordering Physician: Adelaida Carrion NPResults: Date of Service: 09/26/24Follow Up: Procedure(s): MM tomosynthesis screening BI Accession Number(s): [id number] cc: Adelaida Carrion NP Patient Name: NASIM BE MR#: [id number] : 1960 Exam Date: 09/26/2024 Ordering Doctor: LIVIER CARRION MECHANICAL HANDYMAN RADIOLOGY REPORT PROCEDURE: MM TOMOSYNTHESIS SCREENING BI [...] Treatments None Family Cancers None LOCATION: The [facility] BREAST COMPOSITION: There are scattered areas of [...] 16:42 Dictated By: Olu Grover M.D. Signed By:09/26/24 1643 DD/ 164 TD/TT: Chief Nurse Executive: Adelaida Carrion NP [facility] Final Result * XR SHOULDER RT MIN 2V (09/26/2024 1:35 PM EDT) Anatomical Region Laterality Modality Other 09/26/2024 1:35 PM EDT Narrative 09/26/2024 1:38 PM EDT The [address] [address] XRay Report Signed Patient: NASIM BE MR#: [id number] : 1960 Acct:[id number] Age/Sex: 63 / F ADM Date: 09/26/24 Loc: [facility] Attending Dr: Elizabeth Culp NP Ordering Physician: Elizabeth Culp NP Date of Service: 09/26/24 Procedure(s): XR shoulder RT min 2V Accession Number(s): [id number] cc: Adelaida Carrion SITE MANAGER; Elizabeth Culp NP The [address] [address] Patient Name: NASIM BE MRN: [id number] date: 1960 Sex: F Assigned Patient Location: [facility] Current Patient Location: [facility] Accession/Order Number: [id number] Exam Date: 09/26/2024 13:34 Report Date: 09/26/2024 [...] Guadalupe M.D. 09/26/2024 1:35 PM Dictation Location: [place] [address] Electronically authenticated by: [id number] Y Date: 09/26/2024 13:35 Dictated By: Shaheed Guadalupe M.D. Signed By: 09/26/24 1338 DD/ 34 TD/TT: Chief Nurse Executive: Procedure Note Radiology, Radiologist, - 09/26/2024 The [place] [address] XRay Report Signed Patient: NASIM BE LMR#: [id number] : 1960cct:[id number] Age/Sex: 63 / FADM Date: 09/26/24 Loc: RAD Attending Dr: Elizabeth Culp NP Ordering Physician: Elizabeth Culp NP Date of Service: 09/26/24 Procedure(s): XR shoulder RT min 2V Accession Number(s): [id number] cc: Adelaida Carrion NP; Elizabeth Culp NP The [place] [address] Patient Name: NASIM BE MRN: [facility]:[id number] date: 1960 Sex: F Assigned Patient Location: [facility] Current Patient Location: [facility] Accession/Order Number: [id number] Exam Date: 09/26/2024 13:34 Report Date: 09/26/2024 [...] Guadalupe M.D. 09/26/2024 1:35 PM Dictation Location: [place] [address] Electronically authenticated by: [id number] Y Date: 3:35 Dictated By: Shaheed Guadalupe M.D. Signed By:09/26/24 1338 DD/ 34 TD/TT: Chief Nurse Executive: us Generic External Data Provider [facility] Final Result * POCT glycosylated hemoglobin (Hb A1C) docked device (08/16/2024 11:53 AM EDT) Hemoglobin A1C 5.6 Blood Venous blood specimen / Unknown 08/16/2024 11:53 AM EDT us Adelaida Carrion SITE MANAGER POINT OF CARE TEST ENTER/EDIT O RDERABLES Final Result from Last 3 Months Insurance [employer] MEDICARE Advance Directives Documents on File Type Date Recorded Patient Suspension Cord Tier Expl anation Power of Labeling Associate 03/16/2024 9:42 AM darian ellis of sports attorney Power of Labeling Associate 03/10/2024 3:12 PM POA Care Teams Clerical Aide Teacher Relationship Specialty Start Date End Date José Luis Roberts MD [address] [facility] [place] [address] PCP - General Family Medicine 02/02/24 Miriam Suarez DO [address] [place] [address] Referring Physician Neurology 06/29/23 Adelaida Carrion NP [address] [place] [address] Nurse Practitioner Family Medicine 01/27/24 Bong Rosado, [place] [address] [place] [address] Family Medicine 02/12/24 Juany Leggett PA [address] [place] [address] Physician Agricultural Extension Educator Neurology 07/26/24
--- OUTSIDE RECORDS SUMMARY | 2024-10-08 02:19 | XMS_ITS | Encounter Summary ---
Author Organization [facility] Address [address] [place] [address] Care Team Providers Care Site Physician Name Role Phone Adelaida Carrion NP Unavailable [phone] José Luis Roberts MD Primary Care Provider [phone] José Luis Roberts MD Primary Care Provider [phone] Miriam Suarez DO Unavailable [phone] [place], Ardana RETAIL PHARMACIST Unavailable Unavailable Fran Parradana RETAIL PHARMACIST Unavailable Unavailable Diana De Leon RETAIL PHARMACIST Unavailable Unallocated, Noms Provider Primary Care Provi kellee Adelaida Carrion [employer] Unavailable [phone] José Luis Roberts MD Primary Care Provider [phone] Bong Rosado MA Unavailable [phone] Juany Leggett Unavailable Encounter Details Date Type Department Care Team (Late st Contact Info) Description 01/23/2023 Abstract [facility] [address] [facility] [address] [place] [address] Travon Hines PA [address] [facility] 150 [place] [address] Social History Tobacco Use Types Packs/Day Years [...] Visit [facility] [address] [place] [address] Adelaida Carrion NP [address] [place] [address] documented as of this encounter Visit Diagnoses Not on filedocumented in this encounter Care Teams Site Physician Relationship Specialty Start Date End Date José Luis Roberts MD PCP - General Family Medicine 10/14/22 05/17/23 José Luis Roberts MD [address] [place] [address] PCP - General Family Medicine 05/18/23 01/26/24 Unallocated, Johan Sierra MD [address] [place] [address] PCP - General Family Medicine 01/27/24 02/01/24 José Luis Roberts MD [address] [place] [address] PCP - General Family Medicine 02/02/24 Adelaida Carrion NP Referring Physician Nurse Practitioner 10/14/22 Miriam Suarez DO [address] [place], [place] [address] Referring Physician Neurology 06/29/23 Mathew Parra LPN Registered Nurse Family Medicine 07/07/23 07/08/23 Mathew Parra LPN Licensed Practical Nurse Family Medicine 07/23/23 Diana De Leon LPN [address] [place] [address] Licensed Practical Nurse Family Medicine 12/18/2302/11 Adelaida Carrion NP [address] [place] [address] Nurse Practitioner Family Medicine 01/27/24 Bong Rosado, [place] [address] [place] [address] Family Medicine 02/12/24 Juany Leggett PA [address] [place] [address] Physician Oyster Culler Neurology 07/26/24 documented as of this encounter
--- OUTSIDE RECORDS SUMMARY | 2024-10-08 02:19 | XMS_ITS | Encounter Summary ---
Author Organization [facility] Address [address] [place] [address] Care Team Providers Care Regulatory Compliance Director Name Role Phone Adelaida Carrion NP Unavailable [phone] José Luis Roberts MD Primary Care Provider [phone] José Luis Roberts MD Primary Care Provider [phone] Miriam Suarez DO Unavailable [phone] [place], Ardana ELECTRONICS INSTRUCTOR Unavailable Unavailable Aida Ardana ELECTRONICS INSTRUCTOR Unavailable Unavailable Diana De Leon ELECTRONICS INSTRUCTOR Unavailable Unallocated, Noms Provider Primary Care Provi kellee Adelaida Carrion NP Unavailable [phone] José Luis Roberts MD Primary Care Provider [phone] Bong Rosado MA Unavailable [phone] Juany Leggett Unavailable Encounter Details Date Type Department Care Team (Late st Contact Info) Description 03/25/2023 Abstract [facility] [address] [place] [address] Adelaida Carrion NP [address] [place] [address] Social History Tobacco Use Types Packs/Day Years [...] Office Visit [facility] [address] [place] [address] Adelaida Carrion NP [address] [place] [address] documented as of this encounter Visit Diagnoses Not on filedocumented in this encounter Care Teams Regulatory Compliance Director Relationship Specialty Start Date End Date José Luis Roberts MD PCP - General Family Medicine 10/14/22 05/17/23 José Luis Roberts MD [address] [place] [address] PCP - General Family Medicine 05/18/23 01/26/24 Unallocated, Johan Sierra MD [address] [place] [address] PCP - General Family Medicine 01/27/24 02/01/24 oJsé Luis Roberts MD [address] [place] [address] PCP - General Family Medicine 02/02/24 Adelaida Carrion NP Referring Physician Nurse Practitioner 10/14/22 Miriam Suarez DO [address] [place], [place] [address] Referring Physician Neurology 06/29/23 Mathew Parra LPN Registered Nurse Family Medicine 07/07/23 07/08/23 Mathew Parra LPN Licensed Practical Nurse Family Medicine 07/23/23 Diana De Leon LPN [address] [place], [place] [address] Licensed Practical Nurse Family Medicine 12/18/2302/11 Adelaida Carrion NP [address] [place] [address] Nurse Practitioner Family Medicine 01/27/24 Bong Rosado, [place] [address] [place] [address] Family Medicine 02/12/24 Juany Leggett PA [address] [place] [address] Physician Jacquard Loom Weaver Neurology 07/26/24 documented as of this encounter
--- OUTSIDE RECORDS SUMMARY | 2024-10-08 02:19 | XMS_ITS | Patient Health Record ---
Author Organization [facility] [place] Address [address] [place] [address] Care Team Providers Care Livestock Farm Workers Name Role Phone Adelaida Carrion CNP Primary [...] Problem Status W/U Status Risk Notes Problem 40957122 Sprain of tarsometatarsal ligament of right foot, initial encounter (S93.621A) Active confirmed Problem 241591341 Lumbar postlaminectomy syndrome (M96.1) Active confirmed Problem 57365627 Lumbosacral spondylosis without myelopathy (M47.817) Active confirmed [...] [employer]ARE MEDICARE PPO [address] [address] [place], [place] [id number] [phone] [id number] Nasim Conway Self - patient is the insured MEDIC[place] [address] [place] [address] [id number] Nasim Conway Self - patient is the insured Medical (General) History Medical History History ICD Code Right foot pain M79.671 hypertension dysphagia Osteoporosis M81.0 Bipolar disorder with severe depression F31.4 Brain vascular 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
--- OUTSIDE RECORDS SUMMARY | 2024-10-08 02:19 | XMS_ITS | Encounter Summary ---
Author Organization [facility] Address [address] [place] [address] Care Team Providers Care It Assistant Name Role Phone Adelaida Carrion NP Unavailable [phone] José Luis Roberts MD Primary Care Provider [phone] José Luis Roberts MD Primary Care Provider [phone] Miriam Suarez DO Unavailable [phone] [place], Ardana MAINTENANCE AIDE Unavailable Unavailable Aida Ardana MAINTENANCE AIDE Unavailable Unavailable Diana De Leon MAINTENANCE AIDE Unavailable Unallocated, Noms Provider Primary Care Provi kellee Adelaida Carrion NP Unavailable [phone] José Luis Roberts MD Primary Care Provider [phone] Bong Rosado MA Unavailable [phone] Juany Leggett Unavailable Encounter Details Date Type Department Care Team (Late st Contact Info) Description 03/26/2023 Clinisync Result Encounter [facility] External Department Unsolicited Adelaida Carrion NP [address] [place] [address] Social History Tobacco Use Types Packs/Day Years [...] Visit [facility] [address] [place] [address] Adelaida Carrion NP [address] [place] [address] documented as of this encounter Procedures Procedure Name Priority Date/Time Associated Diagnosis Comments XR FOOT LT MIN 3V 03/26/2023 8:1 4 AM EST documented in this encounter Results * XR FOOT LT MIN 3V (03/26/2023 8:14 AM EST) Anatomical Region Laterality Modality Other 03/26/2023 8:14 AM EST Narrative 03/26/2023 8:17 AM EST [address] [address] XRay Report Signed Patient: NASIM INGRAM MR#: [id number] : 1960 Acct:[id number] Age/Sex: 62 / F ADM Date: 03/25/23 Loc: SAHIL Attending Dr: Adelaida Carrion NP Ordering Physician: Adelaida Carrion NP Date of Service: 03/25/23 Procedure(s): XR foot LT min 3V Accession Number(s): [id number] cc: Adelaida Carrion NP [address] [address] Patient Name: NASIM INGRAM MRN: [id number] date: 1960 Sex: F Assigned Patient Location: [facility] Current Patient Location: Accession/Order Number: [id number] Exam Date: 03/25/2023 15:34 Report Date: 03/26/2023 08:14 At the request of: ADELAIDA CARRION Procedure: XR foot LT min 3V PROCEDURE: XR foot LT min 3V DATE: 03/25/2023 2:34 PM DISC PAD GRINDING MACHINE FEEDER COMPARISONS: None CLINICAL INDICATION: left foot pain [...] M.D. Signed By: 03/26/23816 DD/ 3 TD/TT: Territory Sales Executive: Procedure Note Radiology, Radiologist, MD - 03/26/2023 [place] [address] XRay Report Signed Patient: NASIM INGRAM LMR#: [id number] : 1960cct:[id number] Age/Sex: 62 / FADM Date: 03/25/23 Loc: RAD Attending Dr: Adelaida Carrion NP Ordering Physician: Adelaida Carrion NP Date of Service: 03/25/23 Procedure(s): XR foot LT min 3V Accession Number(s): [id number] cc: Adelaida Carrion NP The [address] [address] Patient Name: NASIM INGRAM MRN: [id number] date: 1960 Sex: F Assigned Patient Location: [facility] Current Patient Location: Accession/Order Number: [id number] Exam Date: 03/25/2023 15:34 Report Date: 03/26/2023 08:14 At the request of: ADELAIDA CARRION Procedure: XR foot LT min 3V PROCEDURE: XR foot LT min 3V DATE: 03/25/2023 2:34 PM DISC PAD GRINDING MACHINE FEEDER COMPARISONS: None CLINICAL INDICATION: left foot pain [...] Bloom M.D. Signed By:03/26/23816 DD/ 3 TD/TT: Territory Sales Executive: us Adelaida Carrion DROP PIT WORKER [facility] Final Result documented in this encounter Visit Diagnoses Not on filedocumented in this encounter Care Teams It Assistant Relationship Specialty Start Date End Date José Luis Roberts MD PCP - General Family Medicine 10/14/22 05/17/23 José Luis Roberts MD [address] [place] [address] PCP - General Family Medicine 05/18/23 01/26/24 Unallocated, Noms MD Mariela [address] [place] [id number] PCP - General Family Medicine 01/27/24 02/01/24 José Luis Roberts MD [address] [place] [address] PCP - General Family Medicine 02/02/24 Adelaida Carrion NP Referring Physician Nurse Practitioner 10/14/22 Miriam Suarez DO [address] [place] [address] Referring Physician Neurology 06/29/23 Mathew Parra LPN Registered Nurse Family Medicine 07/07/23 07/08/23 Mathew Parra LPN Licensed Practical Nurse Family Medicine 07/23/23 Diana De Leon LPN [address] [facility] [place] [address] Licensed Practical Nurse Family Medicine 12/18/2302/11 Adelaida Carrion NP [address] [place] [address] Nurse Practitioner Family Medicine 01/27/24 Bong Rosado, [place] [address] [place] [address] Family Medicine 02/12/24 Juany Leggett PA [address] [place] [address] Physician Underwriting Support Specialist Neurology 07/26/24 documented as of this encounter
--- OUTSIDE RECORDS SUMMARY | 2024-10-08 02:19 | XMS_ITS | Clinical Summary ---
Author Organization [facility] tem Address [id number] [address] [place] [address] Care Team Providers Care Drainage Inspector Name Role Phone Adelaida Carrion APRN-COMPOSING MACHINE OPERATOR/TENDER Primary Care Provider Medications gabapentin (NEURONTIN) 600 [...] Devices Not on file Insurance Care Teams Drainage Inspector Relationship Specialty Start Date End Date Adelaida Carrion, ROSS-COMPOSING MACHINE OPERATOR/TENDER PCP - General Nurse Practitioner 12/10/16
--- OUTSIDE RECORDS SUMMARY | 2024-10-08 02:19 | XMS_ITS | Encounter Summary ---
Author Organization [facility] Address [address] [place] [address] Care Team Providers Care Screen Printing Machine Loader Unloader Name Role Phone Adelaida Carrion NP Unavailable [phone] José Luis Roberts MD Primary Care Provider [phone] Miriam Suarez DO Unavailable [phone] Mathew Parra BOARD LINING MACHINE OPERATOR Unavailable Unavailable Diana De Leon LPN Unavailable Unallocated, Noms Provider Primary Care Provi kellee Adelaida Carrion NP Unavailable [phone] José Luis Roberts MD Primary Care Provider [phone] Bong Rosado MA Unavailable [phone] Juany Leggett Unavailable Encounter Details Date Type Department Care Team (Late st Contact Info) Description 09/01/2023 Orders Only [facility] [address] [place] [address] Shaikh Alberto MD [address] [place] [address] Social History Tobacco Use Types [...] How often do you attend yarsanism or pentecostalism serv ices? Never 08/16/2023 Do you belong [...] Recorded Patient Health Questionnaire-2 Score 0 08/17/2023 [facility]at [facility] [...] [facility] [address] [place] [address] Adelaida Carrion NP [address] [place] [address] documented as of this encounter Procedures Procedure Name Priority Date/Time Associated Diagnosis Comments XR ANKLE 3+ VIEWS RIGHT Routine 08/31/2023 7:41 AM EDT MRI HEAD/BRAIN WO CONTRAS Routine 08/24/2023 10:43 AM EDT documented in this encounter Results * XR ankle 3+ views right (08/31/2023 7:41 AM EDT) Anatomical Region Laterality Modality Lower Extremities, Ankle Right Radiogr aphic Imaging us Shaikh Dolly JIAMES IMG XR PROCEDURES Final Result * MRI [...] documented as of this encounter Care Teams Screen Printing Machine Loader Unloader Relationship Specialty Start Date End Date José Luis Roberts MD [address] [place] [address] PCP - General Family Medicine 05/18/23 01/26/24 Unallocated, Johan Sierra MD [address] [place] [address] PCP - General Family Medicine 01/27/24 02/01/24 José Luis Roberts MD [address] [place] [address] PCP - General Family Medicine 02/02/24 Adelaida Carrion NP Referring Physician Nurse Practitioner 10/14/22 Miriam Suarez DO [address] [place], [place] [address] Referring Physician Neurology 06/29/23 Mathew Parra LPN Licensed Practical Nurse Family Medicine 07/23/23 Diana De Leon LPN [address] [place] [address] Licensed Practical Nurse Family Medicine 12/18/2302/11 Adelaida Carrion NP [address] [place] [address] Nurse Practitioner Family Medicine 01/27/24 Bong Rosado MA [address] [place] [address] Family Medicine 02/12/24 Juany Leggett PA [address] [place], [place] [address] Physician Order Takers Supervisor Neurology 07/26/24 documented as of this encounter
--- OUTSIDE RECORDS SUMMARY | 2024-10-08 02:19 | XMS_ITS | Encounter Summary ---
Author Organization [facility] Address [address] [place] [address] Care Team Providers Care Balance Bridge Assembler Name Role Phone Miriam Suarez DO Unavailable [phone] Adelaida Carrion NP Unavailable [phone] José Luis Roberts MD Primary Care Provider [phone] Bong Rosado MA Unavailable [phone] Juany Leggett Unavailable Encounter Details Date Type Department Care Team (Late st Contact Info) Description 03/08/2024 Orders Only [facility] [address] [place] [address] Dennis Steel DO Social History [...] How often do you attend methodist or judaism serv ices? Never 08/16/2023 Do [...] Recorded Patient Health Questionnaire-2 Score 2 09/21/2023 [facility] of Occupat ional [...] Visit [facility] [address] [place] [address] Adelaida Carrion NP [address] [place] [address] documented as of this encounter Procedures Procedure [...] documented as of this encounter Care Teams Balance Bridge Assembler Relationship Specialty Start Date End Date José Luis Roberts MD [address] [place] [address] PCP - General Family Medicine 02/02/24 Miriam Suarez DO [address] [place] [address] Referring Physician Neurology 06/29/23 Adelaida Carrion NP [address] [place] [address] Nurse Practitioner Family Medicine 01/27/24 Bong Rosado MA [address] [place] [address] Family Medicine 02/12/24 Juany Leggett PA [address] [place], [place] [address] Physician Vocational Director Neurology 07/26/24 documented as of this encounter
--- OUTSIDE RECORDS SUMMARY | 2024-10-08 02:20 | XMS_ITS | Encounter Summary ---
Author Organization [facility] Address [address] [place] [address] Care Team Providers Care Refinery Operator Light Ends Recovery Name Role Phone Adelaida Carrion NP Unavailable [phone] José Luis Roberts MD Primary Care Provider José Luis Roberts MD Primary Care Provider [phone] Miriam Suarez DO Unavailable [phone] [place], Ardana MODELER Unavailable Unavailable Aida Ardana MODELER Unavailable Unavailable Diana De Leon MODELER Unavailable Unallocated, Noms Provider Primary Care Provi kellee Adelaida Carrion NP Unavailable [phone] José Luis Roberts MD Primary Care Provider [phone] Bong Rosado MA Unavailable [phone] Juany Leggett Unavailable Encounter Details Date Type Department Care Team (Late st Contact Info) Description 04/09/2023 Abstract [facility] [address] [place] [address] Adelaida Carrion NP [address] [place] [address] Social History Tobacco Use Types Packs/Day Years [...] Office Visit [facility] [address] [place] [address] Adelaida Carrion, BRIANA [address] [place] [address] documented as of this encounter Visit Diagnoses Not on filedocumented in this encounter Care Teams Refinery Operator Light Ends Recovery Relationship Specialty Start Date End Date José Luis Roberts MD PCP - General Family Medicine 10/14/22 05/17/23 José Luis Roberts MD [address] [place] [address] PCP - General Family Medicine 05/18/23 01/26/24 Unallocated, Johan Sierra MD [address] [place] [address] PCP - General Family Medicine 01/27/24 02/01/24 José Luis Roberts MD [address] [place] [address] PCP - General Family Medicine 02/02/24 Adelaida Carrion NP Referring Physician Nurse Practitioner 10/14/22 Miiram Suarez DO [address] [place], [place] [address] Referring Physician Neurology 06/29/23 Mathew Parra LPN Registered Nurse Family Medicine 07/07/23 07/08/23 Mathew Parra LPN Licensed Practical Nurse Family Medicine 07/23/23 Diana De Leon LPN [address] [place] [address] Licensed Practical Nurse Family Medicine 12/18/2302/11 Adelaida Carrion NP [address] [place] [address] Nurse Practitioner Family Medicine 01/27/24 Bong Rosado MA [address] [place] [address] Family Medicine 02/12/24 Juany Leggett PA [address] [place] [address] Physician Hand Painter Neurology 07/26/24 documented as of this encounter
--- OUTSIDE RECORDS SUMMARY | 2024-10-08 02:20 | XMS_ITS | Encounter Summary ---
Author Organization [facility] Address [address] [place] [address] Care Team Providers Care Unattended Ground Sensor Specialist Name Role Phone Adelaida Carrion NP Unavailable [phone] José Luis Roberts MD Primary Care Provider [phone] Miriam Suarez DO Unavailable [phone] Mathew Parra MONOTYPE MACHINIST Unavailable Unavailable Mathew Parra MONOTYPE MACHINIST Unavailable Unavailable Diana De Leon MONOTYPE MACHINIST Unavailable Unallocated, Noms Provider Primary Care Provi kellee Adelaida Carrion NP Unavailable [phone] José Luis Roberts MD Primary Care Provider [phone] Bong Rosado MA Unavailable [phone] Juany Leggett Unavailable Encounter Details Date Type Department Care Team (Late st Contact Info) Description 05/19/2023 Clinisync Result Encounter [facility] External Department Unsolicited Adelaida Carrion NP [address] [place] [address] Social History Tobacco Use Types Packs/Day Years [...] How often do you attend sikhism or taoist serv ices? Never 05/18/2023 Do [...] Recorded Patient Health Questionnaire-2 Score 1 05/18/2023 [facility] [...] Visit [facility] [address] [place] [address] Adelaida Carrion NP [address] [place] [address] documented as of this encounter Procedures Procedure Name Priority Date/Time Associated Diagnosis Comments XR HIP LT MIN 2V 05/19/2023 9:31 AM EST documented in this encounter Results * XR HIP LT MIN 2V (05/19/2023 9:31 AM EST) Anatomical Region Laterality Modality Other 05/19/2023 9:31 AM EST Narrative 05/19/2023 9:34 AM EST [address] [address] XRay Report Signed Patient: NASIM BE MR#: [id number] : 1960 Acct:[id number] Age/Sex: 62 / F ADM Date: 05/19/23 Loc: RAD Attending Dr: Adelaida Carrion HEALTHCARE CONSULTING MANAGER Ordering Physician: Adelaida Carrion NP Date of Service: 05/19/23 Procedure(s): XR hip LT min 2V Accession Number(s): [id number] cc: Adelaida Carrion NP [address] [address] Patient Name: NASIM BE MRN: [id number] date: 1960 Sex: F Assigned Patient Location: [facility] Current Patient Location: RAD Accession/Order Number: [id number] Exam Date: 05/19/2023 07:50 Report Date: 05/19/2023 [...] M.D. Signed By: 05/19/2334 DD/ 0 TD/TT: Apple Thinner: Procedure Note Radiology, Radiologist, - 05/19/2023 [place] [address] XRay Report Signed Patient: NASIM BE LMR#: [id number] : 1960cct:[id number] Age/Sex: 62 / FADM Date: 05/19/23 Loc: RAD Attending Dr: Adelaida Carrion HEALTHCARE CONSULTING MANAGER Ordering Physician: Adelaida Carrion NP Date of Service: 05/19/23 Procedure(s): XR hip LT min 2V Accession Number(s): [id number] cc: Adelaida Carrion NP [address] [place] [address] Patient Name: NASIM BE MRN: [id number] date: 1960 Sex: F Assigned Patient Location: [facility] Current Patient Location: [facility] Accession/Order Number: [id number] Exam Date: 05/19/2023 07:50 Report Date: 05/19/2023 [...] Maciel M.D. Signed By:05/19/2334 DD/ 0 TD/TT: Apple Thinner: us Adelaida Carrion NP [facility] Final Result documented in this encounter Visit Diagnoses Not on filedocumented in this encounter Additional Health Concerns Assessment Noted Time PHQ-9 Depression Total Score: 8 05/18/19 24 5:00 PM EST documented as of this encounter Care Teams Unattended Ground Sensor Specialist Relationship Specialty Start Date End Date José Luis Roebrts MD [address] [place] [address] PCP - General Family Medicine 05/18/23 01/26/24 Unallocated, Johan Sierra MD [address] [place] [address] PCP - General Family Medicine 01/27/24 02/01/24 José Luis Roberts MD [address] [place] [address] PCP - General Family Medicine 02/02/24 Adelaida Carrion NP Referring Physician Nurse Practitioner 10/14/22 Miriam Suarez DO [address] [place] [address] Referring Physician Neurology 06/29/23 Mathew Parra LPN Registered Nurse Family Medicine 07/07/23 07/08/23 Mathew Parra LPN Licensed Practical Nurse Family Medicine 07/23/23 Diana De Leon LPN [address] [place] [address] Licensed Practical Nurse Family Medicine 12/18/2302/11 Adelaida Carrion NP [address] [place] [address] Nurse Practitioner Family Medicine 01/27/24 Bong Rosado MA [address] [place] [address] Family Medicine 02/12/24 Juany Leggett PA [address] [place] [address] Physician Coordinating Producer Neurology 07/26/24 documented as of this encounter
--- OUTSIDE RECORDS SUMMARY | 2024-10-08 02:20 | XMS_ITS | Encounter Summary ---
Author Organization [facility] Address [address] [place] [address] Care Team Providers Care Logging Shovel Operator Name Role Phone Miriam Suarez Unavailable [phone] Adelaida Carrion NP Unavailable [phone] José Luis Roberts MD Primary Care Provider Bong Rosado MA Unavailable [phone] Juany Leggett Unavailable Encounter Details Date Type Department Care Team (Late st Contact Info) Description 09/19/2024 Abstract [facility] [address] [place] [address] Adelaida Carrion, BRIANA [address] [place] [address] Social History Tobacco Use Types [...] How often do you attend christianity or christian serv ices? Never 08/16/2023 Do [...] Health Questionnaire-2 Score 2 09/21/2023 [facility] - Occupational [...] Visit [facility] [address] [place] [address] Adelaida Carrion NP [address] [place] [address] documented as of this encounter Visit Diagnoses Not on filedocumented in this encounter Additional Health Concerns Assessment Noted Time PHQ-9 Depression Total Score: 8 05/18/19 24 5:00 PM EST documented as of this encounter Care Teams Logging Shovel Operator Relationship Specialty Start Date End Date José Luis Roberts MD [address] [place] [address] PCP - General Family Medicine 02/02/24 Miriam Suarez DO [address] [place] [address] Referring Physician Neurology 06/29/23 Adelaida Carrion NP [address] [place] [address] Nurse Practitioner Family Medicine 01/27/24 Bong Rosado MA [address] [place] [address] Family Medicine 02/12/24 Juany Leggett PA [address] [place] [address] Physician Manager Business Process Neurology 07/26/24 documented as of this encounter
--- OUTSIDE RECORDS SUMMARY | 2024-10-08 02:20 | XMS_ITS | Encounter Summary ---
Author Organization [facility] Address [address] [place] [address] Care Team Providers Care Criminal Defense Lawyer Name Role Phone Daniela Miriam DO Unavailable [phone] Adelaida Carrion NP Unavailable [phone] José Luis Roberts MD Primary Care Provider [phone] Bong Rosado MA Unavailable [phone] Juany Leggett Unavailable Encounter Details Date [...] How often do you attend gnosticism or yarsanism serv ices? Never 08/16/2023 Do [...] Patient Health Questionnaire-2 Score 2 09/21/2023 [facility]at [facility] - [facility]ational Stress Questionnaire Answer Date [...] in a senior living (including now)? No 08/16/2023 Housing Stability Vital [...] Visit [facility] [address] [place] [address] Adelaida Carrion NP [address] [place] [address] documented as of this encounter Procedures Procedure Name Priority Date/Time Associated Diagnosis Comments XR SHOULDER RT MIN 2V 09/26/2024 1:35 PM EDT documented in this encounter Results * XR SHOULDER RT MIN 2V (09/26/2024 1:35 PM EDT) Anatomical Region Laterality Modality Other 09/26/2024 1:35 PM EDT Narrative 09/26/2024 1:38 [place] [address] XRay Report Signed Patient: NASIM INGRAM MR#: [id number] : 1960 Acct:[id number] Age/Sex: 63 / F ADM Date: 09/26/24 Loc: SAHIL Attending Dr: Elizabeth Cano NP Ordering Physician: Elizabeth Cano NP Date of Service: 09/26/24 Procedure(s): XR shoulder RT min 2V Accession Number(s): [id number] cc: Adelaida Carrion TAILOR FITTER; Elizabeth Cano NP [address] [place] [address] Patient Name: NASIM INGRAM MRN: [id number] date: 1960 Sex: F Assigned Patient Location: [facility] Current Patient Location: [facility] Accession/Order Number: [id number] Exam Date: 09/26/2024 13:34 Report Date: 09/26/2024 [...] Guadalupe M.D. 09/26/2024 1:35 PM Dictation Location: [place] [address] Electronically authenticated by: [id number] Y Date: 09/26/2024 13:35 Dictated By: Shaheed Guadalupe M.D. Signed By: 09/26/24 1338 DD/ 34 TD/TT: Secondary Connector Armature: Procedure Note Radiology, Radiologist, MD - 09/26/2024 [place] [address] XRay Report Signed Patient: NASIM INGRAM R#: [id number] : 1960cct:[id number] Age/Sex: 63 / FADM Date: 09/26/24 Loc: RAD Attending Dr: Elizabeth Cano NP Ordering Physician: Elizabeth Cano NP Date of Service: 09/26/24 Procedure(s): XR shoulder RT min 2V Accession Number(s): [id number] cc: Adelaida Carrion NP; Elizabeth Cano NP The [place] [address] Patient Name: NASIM INGRAM MRN: [id number] date: 1960 Sex: F Assigned Patient Location: [facility] Current Patient Location: [facility] Accession/Order Number: [id number] Exam Date: 09/26/2024 13:34 Report Date: 09/26/2024 [...] Guadalupe M.D. 09/26/2024 1:35 PM Dictation Location: [place] [address] Electronically authenticated by: [id number] Y Date: 3:35 Dictated By: Shaheed Guadalupe M.D. Signed By:09/26/24 1338 DD/ 1335 TD/TT: Secondary Connector Armature: us Generic External Data Provider [facility] Final Result documented in this encounter Visit Diagnoses Not on filedocumented in this encounter Additional Health Concerns Assessment Noted Time PHQ-9 Depression Total Score: 8 05/18/19 24 5:00 PM EST documented as of this encounter Care Teams Criminal Defense Lawyer Relationship Specialty Start Date End Date José Luis Roberts MD [address] [place] [address] PCP - General Family Medicine 02/02/24 Miriam Suarez DO [address] [place] [address] Referring Physician Neurology 06/29/23 Adelaida Carrion NP [address] [place] [address] Nurse Practitioner Family Medicine 01/27/24 Bong Rosado MA [address] [place] [address] Family Medicine 02/12/24 Juany Leggett PA [address] [place] [address] Physician American Studies Professor Neurology 07/26/24 documented as of this encounter
--- NOTE | 2024-10-08 02:55 | ED.AMS1 ---
HPI - Altered Mental Status General Chief Complaint: Altered Mental Status Stated Complaint: MENTAL STATUS Time Seen by Provider: 10/08/24 02:45 Source: family Source comment: Mode of arrival: walk-in History of Present Illness HPI narrative: patient confused. states she was confused 08/2023 and workup was initiated for CVA. she was life flighted to [facility]. States they were not sure what was wrong with her and thought she may have taken extra mental health medication. She went to bed after dinner around 5:30PM 10/07/24. 1AM this morning family states she is confused. At home was not sure of her name. After arrival here knows her name, the president and where she is but does not know the year. No pain or headache Related Data Home Medications ?Medication ?Instructions ?Recorded ?Confirmed amlodipine 10 mg tablet (Norvasc) 10 mg PO DAILY 09/10/22 09/19/24 biotin 1 mg capsule 5 mg PO DAILY 09/10/22 09/19/24 cariprazine 4.5 mg capsule 4.5 mg PO Q24H 09/10/22 09/19/24 (Vraylar) duloxetine 60 mg capsule,delayed 60 mg PO BID 09/10/22 09/19/24 release ferrous sulfate 325 mg (65 mg 325 mg PO BID 09/10/22 09/19/24 iron) tablet (FeroSul) losartan 50 mg tablet (Cozaar) 100 mg PO DAILY 09/10/22 09/19/24 magnesium 200 mg tablet 400 mg PO QDAY 09/10/22 09/19/24 melatonin 12 mg tablet 12 mg PO .HS PRN sleep 09/10/22 09/19/24 omeprazole 20 mg capsule,delayed 20 mg PO QDAY 09/10/22 09/19/24 release ropinirole 4 mg tablet 4 mg PO QDAY 09/10/22 09/19/24 trazodone 150 mg tablet 150 mg PO .HS 09/10/22 09/19/24 fluticasone propionate 50 1 spray intranasal DAILY PRN 10/20/23 09/19/24 mcg/actuation nasal allergy symptoms spray,suspension (Flonase Allergy Relief) spironolactone 50 mg tablet 50 mg PO DAILY 10/20/23 09/19/24 gabapentin 300 mg capsule 300 mg PO BID 11/03/23 09/19/24 calcium citrate 200 mg PO QID 11/04/23 09/19/24 carvedilol 12.5 mg tablet 12.5 mg PO Q12H 11/04/23 09/19/24 multivitamin 1 tab PO DAILY 11/04/23 09/19/24 fexofenadine 60 mg tablet ([place] 60 mg PO BID 08/08/24 09/19/24 Allergy) Previous Rx's ?Medication ?Instructions ?Recorded tizanidine 2 mg tablet 2 mg PO TID PRN muscle spasticity 10/01/23 #90 tabs Allergies Allergy/AdvReac Type Severity Reaction Status Date / Time levetiracetam (From Keppra) Allergy Severe Unknown Verified 10/08/24 02:29 adhesive Allergy Intermediate Blister Verified 10/08/24 02:29 Penicillins Allergy Intermediate Unknown Verified 10/08/24 02:29 tetracycline Allergy Intermediate Unknown Verified 10/08/24 02:29 eszopiclone (From Lunesta) Allergy Unknown Verified 10/08/24 02:29 milnacipran (From Savella) AdvReac Intermediate Agitated Verified 10/08/24 02:29 prochlorperazine (From AdvReac Intermediate Agitated Verified 10/08/24 02:29 Compazine) Review of Systems ROS Status of ROS 10 or more systems reviewed and unremarkable except as noted in history and below [facility] Medical History FH: bariatric surgery ?Z84.89 - Family history of other specified conditions (ICD-10) Upper back pain ?M54.9 - Dorsalgia, unspecified (ICD-10) Osteoarthritis ?M19.90 - Unspecified osteoarthritis, unspecified site (ICD-10) Neck pain ?M54.2 - Cervicalgia (ICD-10) Low back pain ?M54.50 - Low back pain, unspecified (ICD-10) Fibromyalgia ?M79.7 - Fibromyalgia (ICD-10) Bipolar 1 disorder ?F31.9 - Bipolar disorder, unspecified (ICD-10) Acid reflux ?K21.9 - Gastro-esophageal reflux disease without esophagitis (ICD-10) Obesity ?E66.9 - Obesity, unspecified (ICD-10) Sleep apnea ?G47.30 - Sleep apnea, unspecified (ICD-10) Heart murmur ?R01.1 - Cardiac murmur, unspecified (ICD-10) High cholesterol ?E78.00 - Pure hypercholesterolemia, unspecified (ICD-10) Hypertension ?I10 - Essential (primary) hypertension (ICD-10) Surgical History S/P dilatation and curettage ?Z98.890 - Other specified postprocedural states (ICD-10) H/O breast biopsy ?Z98.890 - Other specified postprocedural states (ICD-10) S/P ORIF (open reduction internal fixation) fracture ?Z98.890 - Other specified postprocedural states (ICD-10) ?Z87.81 - Personal history of (healed) traumatic fracture (ICD-10) Hx of laparoscopic gastric banding ?Z98.84 - Bariatric surgery status (ICD-10) History of tonsillectomy and adenoidectomy ?Z90.89 - Acquired absence of other organs (ICD-10) History of appendectomy ?Z90.49 - Acquired absence of other specified parts of digestive tract (ICD-10) History of hemilaminectomy ?Z98.890 - Other specified postprocedural states (ICD-10) History of cholecystectomy ?Z90.49 - Acquired absence of other specified parts of digestive tract (ICD-10) Previous section ?Z98.891 - History of uterine scar from previous surgery (ICD-10) Social History Smoking status: Former smoker Little interest or pleasure in doing things: several days Feeling down, depressed, or hopeless: several days Exam Constitutional Vital Signs, click to edit/add: Last Vital Signs Temp 98.3 F 10/08/24 02:19 Pulse 87 10/08/24 04:01 Resp 20 10/08/24 04:01 BP 155/89 H 10/08/24 04:01 Pulse Ox 96 10/08/24 04:01 O2 Del Method Room Air 10/08/24 04:01 Common normals: average body habitus, healthy appearing, alert and well nourished HENMT Common normals: normocephalic and head/scalp atraumatic Eye Common normals: PERRL and EOMs intact bilaterally Respiratory Common normals: normal respiratory effort, no retractions, no use of accessory muscles and clear to auscultation bilaterally Cardio Common normals: regular rate, regular rhythm, S1 normal heart sound and S2 normal heart sound GI Common normals: Normal to inspection, nondistended, normoactive bowel sounds present, soft to palpation and non-tender Extremity Common normals: normal to inspection and full ROM Neuro Common normals: CN's II-XII intact bilaterally, moves all extremities and no focal motor deficits Sensorium/orientation: awake, alert, oriented to person, oriented to place and other (not oriented to time) Psych Appearance: grossly normal Course Vital Signs Vital signs: Vital Signs Temperature 98.3 F 10/08/24 02:19 Pulse Rate 103 H 10/08/24 02:19 Respiratory Rate 20 10/08/24 02:19 Blood Pressure 174/109 H 10/08/24 02:19 Pulse Oximetry 95 10/08/24 02:19 Oxygen Delivery Method Room Air 10/08/24 02:19 Temperature 98.3 F 10/08/24 02:19 Pulse Rate 87 10/08/24 04:01 Respiratory Rate 20 10/08/24 04:01 Blood Pressure 155/89 H 10/08/24 04:01 Pulse Oximetry 96 10/08/24 04:01 Oxygen Delivery Method Room Air 10/08/24 04:01 MDM - Altered Mental Status MDM Narrative Medical decision making narrative: patient presents with altered mental status. states she became acutely confused 08/2023 and was life flighted to [facility] for acute CVA. Workup was neg and per patient and her they felt that maybe she had taken too much of her mental health medication. She went to bed around 5:30pm. this AM around 1AM she was confused. At home did not know her name. Arrived here and knows her name, where she is and who is the president of the [employer]. She does not know what year it is. No physical disabiltiy on exam . Urine drug screen positive for marijuana. states she eats gummies but has not taken any for a few days. UA without sign of infection. lab essentially WNL and CT brain without acute findings. Discussed with Hospitalist Dr Santizo and patient accepted for obs admission Lab Data Labs: Lab Results 10/08/24 10/08/24 Range/Units 03:00 03:12 WBC 11.3 H (4.0-11.0) 10^3/uL RBC 5.01 (4.20-5.40) 10^6/uL Hgb 14.3 (12.0-16.0) g/dL Hct 42.5 (36.0-48.0) % MCV 84.8 (81.0-99.0) fL MCH 28.5 (26.7-34.0) pg MCHC 33.6 (29.9-35.2) g/dL RDW 13.6 (11.0-15.0) % Plt Count 347 (150-450) 10^3/uL MPV 11.0 (9.5-13.5) fL Neut % (Auto) 74.6 (43.0-75.0) % Lymph % (Auto) 15.5 L (20.5-60.0) % [place] % (Auto) 5.9 (1.7-12.0) % Eos % (Auto) 2.8 (0.9-7.0) % Baso % (Auto) 0.8 (0.2-2.0) % Neut # (Auto) 8.5 H (1.4-6.5) 10^3/uL Lymph # (Auto) 1.8 (1.2-3.8) 10^3/uL [place] # (Auto) 0.7 (0.3-0.8) 10^3/uL Eos # (Auto) 0.3 (0.0-0.7) 10^3/uL Baso # (Auto) 0.1 (0.0-0.1) 10^3/uL Abs Immat Gran (auto) 0.04 H (0.00-0.03) 10^3/uL Imm/Tot Granulo (auto) 0.4 (0.0-0.5) % Sodium 141 (136-145) mmol/L Potassium 4.7 (3.5-5.1) mmol/L Chloride 105 (98-107) mmol/L Carbon Dioxide 24.7 (21.0-32.0) mmol/L Anion Gap 16.0 BUN 22.0 H (7.0-18.0) mg/dL Creatinine 0.89 (0.55-1.02) mg/dL Est GFR ( Amer) >60 (>=60 mL/min/1.73m^2) Est GFR (Non-Af Amer) >60 (>=60 mL/min/1.73m^2) BUN/Creatinine Ratio 24.7 Glucose 140 H (74-106) mg/dL Calcium 9.3 (8.5-10.1) mg/dL Ammonia 17 (11-32) umol/L Urine Color Yellow (YELLOW) Urine Clarity Clear (CLEAR) Urine pH 6.0 (5.0-9.0) Ur Specific [place] 1.025 (1.005-1.025) Urine Protein Negative (NEG/TRACE) mg/dL Urine Glucose (UA) Negative (NEGATIVE) mg/dL Urine Ketones Trace A (NEGATIVE) mg/dL Urine Occult Blood Negative (NEGATIVE) Urine Nitrite Negative (NEGATIVE) Urine Bilirubin Negative (NEGATIVE) Urine Urobilinogen 0.2 (0.2-1.0) EU/dL Ur Leukocyte Esterase Negative (NEGATIVE) Urine RBC 0-2 (0-2) #/HPF Urine WBC 0-2 A (NONE SEEN) #/HPF Ur Squamous Epith Cells Few A (NONE/RARE) #/LPF Urine Crystals None seen (None Seen) #/HPF Urine Bacteria Trace A (NONE SEEN) #/HPF Urine Casts None seen (NONE SEEN) #/LPF Urine Mucus Trace A (NONE SEEN) Ur Culture Indicated? No Salicylates <2.8 (<=19.9) mg/dL Urine Opiates Screen Negative (NEGATIVE) Ur Buprenorphine Scrn Negative (NEGATIVE) Ur Oxycodone Screen Negative (NEGATIVE) Urine Methadone Screen Negative (NEGATIVE) Acetaminophen <2.0 L (10.0-30.0) ug/mL Ur Barbiturates Screen Negative (NEGATIVE) U Tricyclic Antidepress Negative (NEGATIVE) Ur Phencyclidine Scrn Negative (NEGATIVE) Ur Amphetamines Screen Negative (NEGATIVE) U Methamphetamines Scrn Negative (NEGATIVE) U Benzodiazepines Scrn Negative (NEGATIVE) Urine Cocaine Screen Negative (NEGATIVE) U Cannabinoids Screen Positive A (NEGATIVE) Ethanol Quant <3 mg/dL Discharge Plan Discharge Chief Complaint: Altered Mental Status Clinical Impression: Altered mental status Patient Disposition: Admitted as Observation
[2024-10-08 03:18] LABS: Hematocrit 42.5 % (36.0-48.0); Hemoglobin 14.3 g/dL (12.0-16.0); Immature Granulocytes Abs Auto 0.04 10^3/uL (0.00-0.03); Immature Granulocytes Pct Auto 0.4 % (0.0-0.5); Lymphocytes Absolute Auto 1.8 10^3/uL (1.2-3.8); Mean Corpuscular HGB Conc 33.6 g/dL (29.9-35.2); Mean Corpuscular Hemoglobin 28.5 pg (26.7-34.0); Mean Corpuscular Volume 84.8 fL (81.0-99.0); Platelet Count 347 10^3/uL (150-450); Red Blood Count 5.01 10^6/uL (4.20-5.40); White Blood Count 11.3 10^3/uL (4.0-11.0)
[2024-10-08 03:23] LABS: Glucose Urine UA NEGATIVE (NEGATIVE)
[2024-10-08 03:32] LABS: Ammonia 17 umol/L (11-32)
[2024-10-08 03:33] LABS: Cannabinoid Screen Urine POSITIVE (NEGATIVE); Methamphetamines Screen Urine NEGATIVE (NEGATIVE); Tricyclic Antidepressant Urine NEGATIVE (NEGATIVE)
[2024-10-08 03:35] LABS: Anion Gap 16.0; Blood Urea Nitrogen 22.0 mg/dL (7.0-18.0); Calcium 9.3 mg/dL (8.5-10.1); Carbon Dioxide 24.7 mmol/L (21.0-32.0); Chloride 105 mmol/L (98-107); Estimated GFR (African America >60 (>=60 mL/min/1.73m^2); Estimated GFR (Non-African Ame >60 (>=60 mL/min/1.73m^2); Glucose 140 mg/dL (74-106); Potassium 4.7 mmol/L (3.5-5.1); Salicylate <2.8 mg/dL (<=19.9); Sodium 141 mmol/L (136-145)
[2024-10-08 03:47] LABS: Acetaminophen <2.0 ug/mL (10.0-30.0)
[2024-10-08 03:48] LABS: Cast Seen? NONE SEEN #/LPF (NONE SEEN); Crystals Seen? None Seen #/HPF (None Seen); Urine Culture Indicated NO
[2024-10-08] MEDS: ASPIRIN 325 MG TABLET PO (04:43)
--- OUTSIDE RECORDS SUMMARY | 2024-10-08 05:02 | XMS_ITS | CCD ---
Author Organization [facility] Care Team Providers Care Sample Stitcher Name Role Phone ROSIERAHEIM, SUKI Admitting Unavailable EBRAHEIM, SUKI Attending Unavailable AICHHOLZ, ADELAIDA Referring Unavailable AICHHOLZ, ADELAIDA Primary Care Unavailable ME Procedure Practitioner Unavailab SUKI Jacob Surgeon Unavailable ME Procedure Practitioner Unavailab CHAPARRITA Goncalves Surgeon Unavailable BRIDGETTE MACEDO Admitting Unavailable BRIDGETTE MACEDO Attending Unavailable AICHHOLZ, TANNING CONSULTANT ADELAIDA Primary Care Unavailable NIXON ., DR FINA Iverson Admitting Unavailable NIXON ., DR FINA Iverson Attending Unavailable AICHHOLZ, TANNING CONSULTANT ADELAIDA Primary Care Unavailable MCDANIEL ., ZELDA Consulting Unavailable LAKSHMIPATHY ., NARENDRANATH Consulting Paula vailable LAKSHMIPATHY ., NARENDRANATH Admitting Paula vailable LAKSHMIPATHY ., NARENDRANATH Attending Paula vailable AICHHOLZ, TANNING CONSULTANT ADELAIDA Primary Care Unavailable LAKSHMIPATHY ., NARENDRANATH Consulting Paula vailable AICHHOLZ, TANNING CONSULTANT ADELAIDA Primary Care Unavailable MARKER ., DR CHAUDHRY Admitting Unavailable MARKER ., DR CHAUDHRY Attending Unavailable MARKER ., DR CHAUDHRY Consulting Unavailable AICHHOLZ, TANNING CONSULTANT ADELAIDA Admitting Unavailable AICHHOLZ, TANNING CONSULTANT ADELAIDA Attending Unavailable AICHHOLZ, TANNING CONSULTANT ADELAIDA Primary Care Unavailable NIXON ., DR FINA Iverson Admitting Unavailable NIXON ., DR FINA Iverson Attending Unavailable AICHHOLZ, TANNING CONSULTANT ADELAIDA Primary Care Unavailable MCDANIEL ., ZELDA Consulting Unavailable NIXON ., DR FINA Iverson Admitting Unavailable NIXON ., DR FINA Iverson Attending Unavailable AICHHOLZ, TANNING CONSULTANT ADELAIDA Primary Care Unavailable MCDANIEL ., ZELDA Consulting Unavailable AICHHOLZ, TANNING CONSULTANT ADELAIDA Admitting Unavailable AICHHOLZ, TANNING CONSULTANT ADELAIDA Attending Unavailable AICHHOLZ, TANNING CONSULTANT ADELAIDA Primary Care Unavailable AICHHOLZ, TANNING CONSULTANT ADELAIDA Consulting Unavailable AICHHOLZ, TANNING CONSULTANT ADELAIDA Admitting Unavailable AICHHOLZ, TANNING CONSULTANT ADELAIDA Attending Unavailable AICHOLZ, TANNING CONSULTANT ADELAIDA Primary Care Unavailable AICHHOLZ, TANNING CONSULTANT ADELAIDA Consulting Unavailable MISC, DR COTE Admitting Unavailable MISC, DR COTE Attending Unavailable AICHOLZ, TANNING CONSULTANT ADELAIDA Primary Care Unavailable AICHHOLZ, TANNING CONSULTANT ADELAIDA Consulting Unavailable PRITESHC, DR COTE Consulting Unavailable STARR, DR KINGSLEY Atkins Consulting Unavailable NIXON ., DR FINA Iverson Admitting Unavailable NIXON ., DR FINA Iverson Attending Unavailable AICHOLZ, [facility] ADELAIDA Primary Care Unavailable MCDANIEL ., ZELDA Consulting Unavailable NIXON ., DR FINA Iverson Admitting Unavailable NIXON ., DR FINA Iverson Attending Unavailable [facility], [facility] Primary Care Unavailable NIXON ., DR FINA Iverson Consulting Unavailable OMID LAY Consulting Unavailable NIXON ., DR FINA Iverson Admitting Unavailable NIXON ., DR FINA Iverson Attending Unavailable [facility], [facility] ADELAIDA Primary Care Unavailable MCDANIEL ., ZELDA Consulting Unavailable AICHOLZ, [facility] ADELAIDA Primary Care Unavailable HALKER ., ARIAN Admitting Unavailable HALKER ., ARIAN Attending Unavailable LAKSHMIPATHY ., NARENDRANATH Consulting Paula vailable HALKER ., ARIAN Consulting Unavailable LAKSHMIPATHY ., NARENDRANATH Admitting Paula vailable LAKSHMIPATHY ., NARENDRANATH Attending Paula vailable [facility], [facility] ADELAIDA Primary Care Unavailable LAKSHMIPATHY ., NARENDRANATH Consulting Paula vailable AICHOLZ, TANNING CONSULTANT ADELAIDA Admitting Unavailable AICHHOLZ, TANNING CONSULTANT ADELAIDA Attending Unavailable AICHOLZ, TANNING CONSULTANT ADELAIDA Primary Care Unavailable AICHHOLZ, TANNING CONSULTANT ADELAIDA Consulting Unavailable BRIDGETTE MACEDO Admitting Unavailable BRIDGETTE MACEDO Attending Unavailable AICHHOLZ, TANNING CONSULTANT ADELAIDA Primary Care Unavailable DR KINGSLEY CLEMENTS Consulting Unavailable BRIDGETTE MACEDO Consulting Unavailable GILMER NEVES Admitting Unavailable GILMER NEVES Attending Unavailable PURA, GILMER Consulting Unavailable AICHOLZ, TANNING CONSULTANT ADELAIDA Primary Care Unavailable AICHHOLZ, TANNING CONSULTANT ADELAIDA Primary Care Unavailable DR WILLI RINALDI Admitting Unavailable DEEJAY, DR WILLI Atkins Attending Unavailable DR WILLI RINALDI Consulting Unavailable AICHHOLZ, TANNING CONSULTANT ADELAIDA Primary Care Unavailable ALMAZ ., DANNY Admitting Unavailable ALMAZ ., DANNY Attending Unavailable DR KINGSLEY CLEMENTS Consulting Unavailable ALMAZ ., DANNY Consulting Unavailable LAKSHMIPATHY ., NARENDRANATH Admitting Paula vailable LAKSHMIPATHY ., NARENDRANATH Attending Paula vailable AICHHOLZ, TANNING CONSULTANT ADELAIDA Primary Care Unavailable AICHHOLZ, TANNING CONSULTANT ADELAIDA Admitting Unavailable AICHHOLZ, TANNING CONSULTANT ADELAIDA Attending Unavailable AICHHOLZ, TANNING CONSULTANT ADELAIDA Primary Care Unavailable AICHHOLZ, TANNING CONSULTANT ADELAIDA Admitting Unavailable AICHHOLZ, TANNING CONSULTANT ADELAIDA Attending Unavailable AICHHOLZ, TANNING CONSULTANT ADELAIDA Primary Care Unavailable AICHHOLZ, TANNING CONSULTANT ADELAIDA Consulting Unavailable DR KINGSLEY CLEMENTS Consulting Unavailable HALKER ., ARIAN Admitting Unavailable HALKER ., ARIAN Attending Unavailable AICHHOLZ, TANNING CONSULTANT ADELAIDA Primary Care Unavailable Aichholz, Adelaida J Primary Care Provider MD Gaudencio Monk Admit Provider [phone] MD Gaudencio Monk Attending Provider [phone] JOHANN Vieira Other Provider Unavailable JOHANN Pina [...] Other Provider Karlene ANP-BC Mari Other Provider [phone] MD Sofi Almanzar Other Provider MD Sharad [...] Care Provider MD Jace Graham Attending Provider [phone] Sheyla MACHINE STRAP BUCKLER, Adelaida Unavailable José Luis Roberts MD Primary Care Provider Aichholz MACHINE STRAP BUCKLER, Adelaida Unavailable Miriam Suarez DO Unavailable Moises CAMPBELL, Diana Unavailable Unavailable Unallocatuche JAIMES, Johan Provider Primary Care Provi kellee Aichrhonda MACHINE STRAP BUCKLER, Adelaida Unavailable José Luis Roberts MD Primary [...] C Attending Unavailable GILLMORJUANY Attending Unavailable AICHHOLZ, DAELAIDA Attending Unavailable AICHHOLZ, ADELAIDA Attending Unavailable AICHHOLZ, [...] (disorder) 04-06-19 14 rash [facility] Repository (3 sources) levETIRAcetam; Translations: [KEPPRA] Drug Allergy 07-02-19 19 [facility] Repository (3 sources) milnacipran; Translations: [SAVELLA] Drug Allergy 03-14-20 13 [facility] Repository (1 source) Penicillin; Translations: [PENICILLIN] Drug Allergy 01-16-20 18 [facility] Repository (5 sources) Prochlorperazin e; Translations: [COMPAZINE] Drug Allergy 03-14-20 13 agitation [facility] Repository (20 sources) Tetracycline; Translations: [TETRACYCLINE] Drug Allergy 04-06-19 13 Hives, Unknown [facility] Repository (4 sources) Penicillins Drug allergy (disorder) 04-06-19 13 Unknown Reaction [facility] Repository (20 sources) levETIRAcetam; Translations: [levetiracetam] Drug Allergy 12-13-19 22 Hallucinations , Other [facility] (20 sources) milnacipran; Translations: [milnacipran] Drug Allergy 12-13-19 22 hives, Hallucinations , Other, Unknown [facility] (20 sources) Prochlorperazin e; Translations: [prochlorperazi ne] Drug Allergy 12-13-19 22 Unknown, [facility] (2 sources) Penicillin G Drug Allergy as a child [facility] Other (2 sources) Tetracaine Drug Allergy Unknown [facility] Other (20 sources) Penicillins Drug Intolerance 12-13-19 22 Anaphylaxis [facility] (20 sources) Other Propensity to adverse reactions 12-13-19 22 Other [facility] (20 sources) Wound Dressing Adhesive Drug Allergy 09-20-19 23 Rash, Unknown [facility] (20 sources) Eszopiclone Drug Allergy 09-21-19 24 Hallucinations , Anaphylaxis [facility] (1 source) Penicillin Drug Allergy 03-02-20 [facility] Repository (1 source) Penicillins Drug allergy (disorder) 03-02-20 [facility] Repository (1 source) Tetracaine Drug Allergy 03-02-20 [facility] Repository Medications Current Medications Medication Drug [...] (BARIATRIC MULTIVITAMINS/IRON PO) Bariatric Multivitamins/Iron 0 Active Ppqtkqvtbxqc-Dte-Dmfs-Fa-Vit K (Bariatric Multivitamins) 45 mg iron- 800 mcg-120 mcg Capsule (2 sources) Start: 11-17-2022 take 1 capsule by mouth once daily Klzhjsuystsb-Hkf-Ocjp-Fa-Vit K (Bariatric Multivitamins) 45 mg iron- 800 mcg-120 mcg Capsule Active 1 CAP PO Daily November 16, 2022 11:00pm Start: 11-17-2022 take 1 capsule by mo uth once daily Guairanmglxp-Ewh-Drum-Fa-Vit K (Bariatri c Multivitamins) 45 mg iron- 800 mcg-120 mcg Capsule Active 1 CAP PO Daily November 17, 2022 12:00am nystatin [id number] unt/ml topical cream (20 sources) Polyene Antifungal Start: 03-07-2024 nystatin (M ycostatin) cream 03/07/2024 Active nystatin (Mycost atin) 799154 UNIT/GM powder Apply 1 application topically in [...] 05-18-2023 Episodic Other aftercare (1 source) Other senior living (current) drug therapy; Translations: [OTH SENIOR CARE [...] - bilat eral GE 2 Viewson 09-29-2024 [place] [address] XRay Report Signed Patient: MICHELLE BE MR#: [id number] : 1960 Acct:[id number] Age/Sex: 63 / F ADM Date: 09/29/24 Loc: [facility] Attending Dr: Elizabeth Culp NP Ordering Physician: Elizabeth Culp NP Date of Service: 09/29/24 Procedure(s): XR hip BHUMI Accession Number(s): [id number] cc: Adelaida Carrion NP; Elizabeth Culp NP [address] [address] Patient Name: MICHELLE BE MRN: [id number] date: 1960 Sex: F Assigned Patient Location: [facility] Current Patient Location: [facility] Accession/Order Number: [id number] Exam Date: 09/29/2024 11:20 Report Date: 09/29/2024 [...] Bernal M.D. 09/29/2024 11:23 AM Dictation Location: [place] [address] Electronically authenticated by: [id number] Y Date: 09/29/2024 11:23 Dictated By: Edith Bernal M.D. Signed By: 09/29/24 1126 DD/ 1123 TD/TT: Fried Cake Maker: [facility] Radiology, Radiologist, MD - 09/29/2024 [place] [address] XRay Report Signed Patient: MICHELLE BE MR#: [id number] : 1960 Acct:[id number] Age/Sex: 63 / F ADM Date: 09/29/24 Loc: [facility] Attending Dr: Elizabeth Culp NP Ordering Physician: Elizabeth Culp NP Date of Service: 09/29/24 Procedure(s): XR hip BHUMI Accession Number(s): [id number] cc: Adelaida Carrion NP; Elizabeth Culp NP The [place] [id number] Patient Name: MICHELLE BE MRN: [facility]:[id number] date: 1960 Sex: F Assigned Patient Location: [facility] Current Patient Location: [facility] Accession/Order Number: [id number] Exam Date: 09/29/2024 11:20 Report Date: 09/29/2024 [...] Bernal M.D. 09/29/2024 11:23 AM Dictation Location: [place] [address] Electronically authenticated by: [id number] Y Date: 09/29/2024 11:23 Dictated By: Edith Bernal M.D. Signed By: 09/29/24 1126 DD/ 1123 TD/TT: Fried Cake Maker: [facility] Radiology Study observation (narrative) [facility] XR Pelvis AP and Hip - bilat eral GE 2 ViewsOrdered By: Radiologist Radiology on 09-29-2024 [facility] Work Phone: CT LUNG SCREENING LOW DOSEon 09-26-2024 [place] [address] CT Scan Report Signed Patient: MICHELLE BE MR#: [id number] : 1960 Acct:[id number] Age/Sex: 63 / F ADM Date: 09/26/24 Loc: [facility] Attending Dr: Adelaida Carrion NP Ordering Physician: Adelaida Carrion NP Date of Service: 09/26/24 Procedure(s): CT lung screening low-dose Accession Number(s): [id number] cc: Adelaida Carrion NP [place] [address] Patient Name: MICHELLE BE MRN: [id number] date: 1960 Sex: F [facility] Current [facility]: [facility] Accession/Order Number: [id number] Exam Date: 09/26/2024 16:58 Report Date: 09/26/2024 [...] Guadalupe M.D. 09/26/2024 5:02 PM Dictation Location: [place] [address] Electronically authenticated by: [id number] Y Date: 09/26/2024 17:02 Dictated By: Willi Guadalupe M.D. Signed By: 09/26/241703 DD/ 01 TD/TT: Fried Cake Maker: [facility] Radiology, Radiologist, MD - 09/26/2024 [place] [address] CT Scan Report Signed Patient: MICHELLE BE MR#: [id number] : 1960 Acct:[id number] Age/Sex: 63 / F ADM Date: 09/26/24 Loc: [facility] Attending Dr: Adelaida Carrion NP Ordering Physician: Adelaida Carrion NP Date of Service: 09/26/24 Procedure(s): CT lung screening low-dose Accession Number(s): [id number] cc: Adelaida Carrion NP The [address] [address] Patient Name: MICHELLE BE MRN: [id number] date: 1960 Sex: F Assigned [facility] Current Patient Location: [facility] Accession/Order Number: [id number] Exam Date: 09/26/2024 16:58 Report Date: 09/26/2024 [...] Guadalupe M.D. 09/26/2024 5:02 PM Dictation Location: [place] [address] Electronically authenticated by: [id number] Y Date: 09/26/2024 17:02 Dictated By: Willi Guadalupe M.D. Signed By: 09/26/24 1704 DD/ 01 TD/TT: Fried Cake Maker: [facility] Radiology Study observation (narrative) [facility] CT LUNG SCREENING LOW DOSEOr dered By: Radiologist Radiology on 09-26-2024 [facility] Work Phone: MM TOMOSYNTHESIS SCREENING B Ion 09-26-2024 [place] [address] Mammography Report Signed Patient: MICHELLE BE MR#: [id number] : 1960 Acct:[id number] Age/Sex: 63 / F ADM Date: 09/26/24 Loc: [facility] Attending Dr: Adelaida Carrion NP Ordering Physician: Adelaida Carrion NP Results: Date of Service: 09/26/24 Follow Up: Procedure(s): MM tomosynthesis screening BI Accession Number(s): [id number] cc: Adelaida Carrion NP Patient Name: MICHELLE BE MR#: [id number] : 1960 Exam Date: 09/26/2024 Ordering Doctor: [...] Cancers None LOCATION: [facility] BREAST COMPOSITION: There are scattered areas [...] M.D. Signed By: 09/26/241642 DD/ 41 TD/TT: Fried Cake Maker: [facility] Radiology, Radiologist, MD - 09/26/2024 [place] [address] Mammography Report Signed Patient: MICHELLE BE MR#: [id number] : 1960 Acct:[id number] Age/Sex: 63 / F ADM Date: 09/26/24 Loc: [facility] Attending Dr: Adelaida Carrion NP Ordering Physician: Adelaida Carrion NP Results: Date of Service: 09/26/24 Follow Up: Procedure(s): MM tomosynthesis screening BI Accession Number(s): [id number] cc: Adelaida Carrion NP Patient Name: MICHELLE BE MR#: [id number] : 1960 Exam Date: 09/26/2024 Ordering Doctor: LIVIER CARRION TANNING CONSULTANT RADIOLOGY REPORT PROCEDURE: MM TOMOSYNTHESIS SCREENING BI [...] Cancers None LOCATION: [facility] BREAST COMPOSITION: There are scattered areas [...] M.D. Signed By: 09/26/241642 DD/ 41 TD/TT: Fried Cake Maker: [facility] Radiology Study observation (narrative) [facility] MM TOMOSYNTHESIS SCREENING B IOrdered By: Radiologist Radiology on 09-26-2024 [facility] Work Phone: XR SHOULDER RT MIN 2Von 09-05 [place] [address] XRay Report Signed Patient: MICHELLE BE MR#: [id number] : 1960 Acct:[id number] Age/Sex: 63 / F ADM Date: 09/26/24 Loc: [facility] Attending Dr: Elizabeth Culp NP Ordering Physician: Elizabeth Culp NP Date of Service: 09/26/24 Procedure(s): XR shoulder RT min 2V Accession Number(s): [id number] cc: Adelaida Carrion MACHINE STRAP BUCKLER; Elizabeth Culp NP [place] [id number] Patient Name: MICHELLE BE MRN: [id number] date: 1960 Sex: F Assigned Patient Location: [facility] Current Patient Location: [facility] Accession/Order Number: [id number] Exam Date: 09/26/2024 13:34 Report Date: 09/26/2024 [...] Guadalupe M.D. 09/26/2024 1:35 PM Dictation Location: [place] [address] Electronically authenticated by: [id number] Y Date: 09/26/2024 13:35 Dictated By: Willi Guadalupe M.D. Signed By: 09/26/24 1338 DD/ 34 TD/TT: Fried Cake Maker: [facility] Radiology, Radiologist, MD - 09/26/2024 [place] [address] XRay Report Signed Patient: MICHELLE BE MR#: [id number] : 1960 Acct:[id number] Age/Sex: 63 / F ADM Date: 09/26/24 Loc: [facility] Attending Dr: Elizabeth Culp NP Ordering Physician: Elizabeth Culp NP Date of Service: 09/26/24 Procedure(s): XR shoulder RT min 2V Accession Number(s): [id number] cc: Adelaida Carrion MACHINE STRAP BUCKLER; Elizabeth Culp NP The [place] [phone] Patient Name: MICHELLE BE MRN: [facility]:[id number] date: 1960 Sex: F Assigned Patient Location: [facility] Current Patient Location: [facility] Accession/Order Number: [id number] Exam Date: 09/26/2024 13:34 Report Date: 09/26/2024 [...] Guadalupe M.D. 09/26/2024 1:35 PM Dictation Location: [place] [address] Electronically authenticated by: [id number] Y Date: 09/26/2024 13:35 Dictated By: Willi Guadalupe M.D. Signed By: 09/26/248 DD/ 34 TD/TT: Fried Cake Maker: [facility] Radiology Study observation (narrative) [facility] XR SHOULDER RT MIN 2VOrdered By: Radiologist Radiology on 09-26-2024 [facility] Work Phone: HbA1c (Bld) [Mass fraction]o n 08-16-2024 Interpretation and review of laboratory results Normal [facility] Laboratory - Hematology and Cell countson 08-16-2024 HbA1c (Bld) [Mass fraction] 5.6 % [facility] Complete Blood Count Auto Di ffon 03-05-2024 Basophils (Bld) [#/Vol] 0.0 10*3/uL Normal 0.0-0.2 [facility] Comment on above: Result Comment: PERF ORMED BY: [place] [address] PATHOLOGIST EQUITIES ANALYST ADIEL AGUSTIN M.D. Performed By: #### C BC MG, CMP #### [facility] [address] [place] [address] [place] Basophils/100 WBC (Bld) 0.5 % Normal . [facility] Comment on above: Performed By: #### C BC MG, CMP #### [facility] [address] [place] [address] [place] Eosinophils (Bld) [#/Vol] 0.2 10*3/uL Normal 0.0-0.45 [facility] Comment on above: Performed By: #### C BC, MG, CMP #### [place] [address] [place] Eosinophils/100 WBC (Bld) 2.2 % Normal . [facility] Comment on above: Performed By: #### C BC, MG, CMP #### [address] Erythrocyte distribution width (RBC) [Ratio] 14.5 % Normal 11.9-15.3 [facility] Comment on above: Performed By: #### C BC, MG, CMP #### [address] Hematocrit (Bld) [Volume fraction] 43.0 % Normal 34.0-46.4 [facility] Comment on above: Performed By: #### C BC, MG, CMP #### [address] Hemoglobin (Bld) [Mass/Vol] 14.3 g/dL Normal 11.8-15.4 [facility] Comment on above: Performed By: #### C BC, MG, CMP #### [place] [address] [place] Lymphocytes (Bld) [#/Vol] 1.8 10*3/uL Normal 1.00-4.8 [facility] Comment on above: Performed By: #### C BC, MG, CMP #### [place] [address] [place] Lymphocytes/100 WBC (Bld) 18.9 % Normal . [facility] Comment on above: Performed By: #### C BC, MG, CMP #### [address] MCH (RBC) [Entitic mass] 29.0 pg Normal 24.7-34.3 [facility] Comment on above: Performed By: #### C BC, MG, CMP #### [address] MCV (RBC) [Entitic vol] 87.0 fL Normal 80-100 [facility] Comment on above: Performed By: #### C BC, MG, CMP #### [facility] [address] Mean Corpuscular HGB Conc 33.4 g/dL Normal 32.0-35.0 [facility] Comment on above: Performed By: #### C BC, MG, CMP #### [facility] [address] [place] [address] [place] Monocytes (Bld) [#/Vol] 0.5 10*3/uL Normal 0.0-0.8 [facility] Comment on above: Performed By: #### C BC, MG, CMP #### [facility] [address] Monocytes/100 WBC (Bld) 5.5 % Normal . [facility] Comment on above: Performed By: #### C BC, MG, CMP #### [facility] [address] Neutrophils (Bld) [#/Vol] 7.0 10*3/uL Normal 1.8-7.7 [facility] Comment on above: Performed By: #### C BC, MG, CMP #### [facility] [address] [place] [address] [place] Neutrophils/100 WBC (Bld) 72.9 % Normal . [facility] Comment on above: Performed By: #### C BC, MG, CMP #### [facility] [address] [place] [address] [place] NRBC% 0.0 /100{WBC} Normal 0-0.5 [facility] Comment on above: Performed By: #### C BC, MG, CMP #### [facility] [address] [place] [address] [place] Platelet mean volume (Bld) [Entitic vol] 8.9 fL Normal 6.3-10.7 [facility] Comment on above: Performed By: #### C BC, MG, CMP #### [facility] [address] [place] [address] [place] Platelets (Bld) [#/Vol] 289 10*3/uL Normal 150-450 [facility] Comment on above: Performed By: #### C BC, MG, CMP #### [address] RBC (Bld) [#/Vol] 4.94 10*6/uL Normal 3.60-5.00 [facility] Comment on above: Performed By: #### C BC, MG, CMP #### [address] WBC (Bld) [#/Vol] 9.6 10*3/uL Normal 3.8-11.6 The [facility] Comment on above: Performed By: #### C BC, MG, CMP #### [address] Comprehensive Metabolic Pane [place] 03-05-2024 Albumin [Mass/Vol] 4.4 g/dL Normal 3.5-5.7 The [facility] Comment on above: Performed By: #### C BC, MG, CMP #### [address] Albumin/Globulin [Mass ratio] 1.3 {ratio} Normal [facility] Comment on above: Performed By: #### C BC, MG, CMP #### [address] ALP [Catalytic activity/Vol] 79 U/L Normal 34-104 [facility] Comment on above: Performed By: #### C BC, MG, CMP #### [address] ALT [Catalytic activity/Vol] 23 U/L Normal 7-52 [facility] Comment on above: Performed By: #### C BC, MG, CMP #### [address] Anion gap [Moles/Vol] 15.4 mmol/L High 6.0-15.0 Th e [facility] Comment on above: Performed By: #### C BC, MG, CMP #### [address] AST [Catalytic activity/Vol] 36 U/L Normal 13-39 [facility] Comment on above: Performed By: #### C BC, MG, CMP #### [address] Bilirubin [Mass/Vol] 0.4 mg/dL Normal 0.3-1.0 [facility] Comment on above: Performed By: #### C BC, MG, CMP #### [address] Calcium [Mass/Vol] 9.5 mg/dL Normal 8.6-10.3 The [facility] Comment on above: Performed By: #### C BC, MG, CMP #### [address] Chloride [Moles/Vol] 106 mmol/L Normal 98-107 [facility] Comment on above: Performed By: #### C BC, MG, CMP #### [address] CO2 [Moles/Vol] 23.1 mmol/L Normal 21.0-31.0 The [facility] Comment on above: Performed By: #### C BC, MG, CMP #### [address] Creatinine [Mass/Vol] 0.96 mg/dL Normal 0.60-1.20 [facility] Comment on above: Performed By: #### C BC, MG, CMP #### [address] Creatinine Clr Calc Pharmacy 84.51 Normal [facility] Comment on above: Performed By: #### C BC, MG, CMP #### [address] GFR/1.73 sq M.predicted MDRD (S/P/Bld) [Vol rate/Area] mL/min/{1.73_m2} Normal [facility] [facility] Comment on above: Performed By: #### C BC, MG, CMP #### [address] Globulin (S) [Mass/Vol] 3.3 g/dL Normal [facility] Comment on above: Performed By: #### C BC, MG, CMP #### [facility] [address] Glucose [Mass/Vol] 133 mg/dL High 70-100 [facility] Comment on above: Result Comment: [facility] Glucose Reference Range is dependent on time and content of last meal. Glucose of more than 200 mg/dL in a nonstressed, ambulatory subject supports the diagnosis of Diabetes Mellitus. ADA recommended reference range Performed By: #### C BC, MG, CMP #### [address] Potassium [Moles/Vol] 3.5 mmol/L Normal 3.5-5.1 [facility] Comment on above: Performed By: #### C BC, MG, CMP #### [address] Protein [Mass/Vol] 7.7 g/dL Normal 6.4-8.9 [facility] Comment on above: Performed By: #### C BC, MG, CMP #### [address] Sodium [Moles/Vol] 141 mmol/L Normal 136-145 [facility] Comment on above: Performed By: #### C BC, MG, CMP #### [address] Urea nitrogen [Mass/Vol] 18 mg/dL Normal 7-25 [facility] Comment on above: Performed By: #### C BC, MG, CMP #### [address] Magnesiumon 03-05-2024 Magnesium [Mass/Vol] 2.0 mg/dL Normal 1.9-2.7 [facility] Comment on above: Result Comment: PERF ORMED BY: [place] [address] PATHOLOGIST EQUITIES ANALYST ADIEL AGUSTIN M.D. Performed By: #### C BC, MG, CMP #### [address] Complete Blood Count Auto Di ffon 03-04-2024 Basophils (Bld) [#/Vol] 0.1 10*3/uL Normal 0.0-0.2 [facility] Comment on above: Result Comment: PERF ORMED BY: [place] [address] PATHOLOGIST EQUITIES ANALYST ADIEL AGUSTIN M.D. Performed By: #### C MP, MG, CBC #### [address] Basophils/100 WBC (Bld) 0.6 % Normal . [facility] Comment on above: Performed By: #### C MP, MG, CBC #### [address] Eosinophils (Bld) [#/Vol] 0.2 10*3/uL Normal 0.0-0.45 [facility] Comment on above: Performed By: #### C MP, MG, CBC #### [address] Eosinophils/100 WBC (Bld) 1.9 % Normal . [facility] Comment on above: Performed By: #### C MP, MG, CBC #### [address] Erythrocyte distribution width (RBC) [Ratio] 14.6 % Normal 11.9-15.3 [facility] Comment on above: Performed By: #### C MP, MG, CBC #### [address] Hematocrit (Bld) [Volume fraction] 43.5 % Normal 34.0-46.4 [facility] Comment on above: Performed By: #### C MP, MG, CBC #### [address] Hemoglobin (Bld) [Mass/Vol] 14.4 g/dL Normal 11.8-15.4 [facility] Comment on above: Performed By: #### C MP, MG, CBC #### [facility] [address] Lymphocytes (Bld) [#/Vol] 1.8 10*3/uL Normal 1.00-4.8 [facility] Comment on above: Performed By: #### C MP, MG, CBC #### [address] Lymphocytes/100 WBC (Bld) 18.0 % Normal . [facility] Comment on above: Performed By: #### C MP, MG, CBC #### [address] MCH (RBC) [Entitic mass] 28.8 pg Normal 24.7-34.3 [facility] Comment on above: Performed By: #### C MP, MG, CBC #### [address] MCV (RBC) [Entitic vol] 87.0 fL Normal 80-100 [facility] Comment on above: Performed By: #### C MP, MG, CBC #### [address] Mean Corpuscular HGB Conc 33.2 g/dL Normal 32.0-35.0 [facility] Comment on above: Performed By: #### C MP, MG, CBC #### [address] Monocytes (Bld) [#/Vol] 0.8 10*3/uL Normal 0.0-0.8 [facility] Comment on above: Performed By: #### C MP, MG, CBC #### [place] [address] [place] Monocytes/100 WBC (Bld) 8.2 % Normal . [facility] Comment on above: Performed By: #### C MP, MG, CBC #### [address] Neutrophils (Bld) [#/Vol] 7.3 10*3/uL Normal 1.8-7.7 [facility] Comment on above: Performed By: #### C MP, MG, CBC #### [address] Neutrophils/100 WBC (Bld) 71.3 % Normal . [facility] Comment on above: Performed By: #### C MP, MG, CBC #### [facility] [address] NRBC% 0.1 /100{WBC} Normal 0-0.5 [facility] Comment on above: Performed By: #### C MP, MG, CBC #### [address] Platelet mean volume (Bld) [Entitic vol] 8.8 fL Normal 6.3-10.7 The [facility] Comment on above: Performed By: #### C MP, MG, CBC #### [address] Platelets (Bld) [#/Vol] 334 10*3/uL Normal 150-450 [facility] Comment on above: Performed By: #### C MP, MG, CBC #### [address] RBC (Bld) [#/Vol] 5.01 10*6/uL High 3.60-5.00 [facility] Comment on above: Performed By: #### C MP, MG, CBC #### [address] WBC (Bld) [#/Vol] 10.3 10*3/uL Normal 3.8-11.6 [facility] Comment on above: Performed By: #### C MP, MG, CBC #### [address] Comprehensive Metabolic Pane [place] 03-04-2024 Albumin [Mass/Vol] 4.5 g/dL Normal 3.5-5.7 [facility] Comment on above: Performed By: #### C MP, MG, CBC #### [address] Albumin/Globulin [Mass ratio] 1.4 {ratio} Normal [facility] Comment on above: Performed By: #### C MP, MG, CBC #### [address] ALP [Catalytic activity/Vol] 79 U/L Normal 34-104 [facility] Comment on above: Performed By: #### C MP, MG, CBC #### [address] ALT [Catalytic activity/Vol] 19 U/L Normal 7-52 [facility] Comment on above: Performed By: #### C MP, MG, CBC #### [address] Anion gap [Moles/Vol] 11.4 mmol/L Normal 6.0-15.0 [facility] Comment on above: Performed By: #### C MP, MG, CBC #### [address] AST [Catalytic activity/Vol] 37 U/L Normal 13-39 [facility] Comment on above: Performed By: #### C MP, MG, CBC #### [address] Bilirubin [Mass/Vol] 0.5 mg/dL Normal 0.3-1.0 [facility] Comment on above: Performed By: #### C MP, MG, CBC #### [address] Calcium [Mass/Vol] 9.6 mg/dL Normal 8.6-10.3 [facility] Comment on above: Performed By: #### C MP, MG, CBC #### [place] [address] [place] Chloride [Moles/Vol] 107 mmol/L Normal 98-107 [facility] Comment on above: Performed By: #### C MP, MG, CBC #### [place] [address] [place] CO2 [Moles/Vol] 27.4 mmol/L Normal 21.0-31.0 [facility] Comment on above: Performed By: #### C MP, MG, CBC #### [address] Creatinine [Mass/Vol] 0.91 mg/dL Normal 0.60-1.20 [facility] Comment on above: Performed By: #### C MP, MG, CBC #### [place] [address] [place] Creatinine Clr Calc Pharmacy 90.12 Normal [facility] Comment on above: Performed By: #### C MP, MG, CBC #### [place] [address] [place] GFR/1.73 sq M.predicted MDRD (S/P/Bld) [Vol rate/Area] mL/min/{1.73_m2} Normal [facility] Comment on above: Performed By: #### C MP, MG, CBC #### [address] Globulin (S) [Mass/Vol] 3.2 g/dL Normal [facility] Comment on above: Performed By: #### C MP, MG, CBC #### [address] Glucose [Mass/Vol] 100 mg/dL Normal 70-100 [facility] Comment on above: Result Comment: [facility] [place][note 2] Glucose Reference Range is dependent on time and content of last meal. Glucose of more than 200 mg/dL in a nonstressed, ambulatory subject supports the diagnosis of Diabetes Mellitus. ADA recommended reference range Performed By: #### C MP, MG, CBC #### [place] [address] [place] Potassium [Moles/Vol] 3.8 mmol/L Normal 3.5-5.1 [facility] Comment on above: Performed By: #### C MP, MG, CBC #### [place] [address] [place] Protein [Mass/Vol] 7.7 g/dL Normal 6.4-8.9 [facility] Comment on above: Performed By: #### C MP, MG, CBC #### [facility] [address] Sodium [Moles/Vol] 142 mmol/L Normal 136-145 [facility] Comment on above: Performed By: #### C MP, MG, CBC #### [facility] [address] Urea nitrogen [Mass/Vol] 15 mg/dL Normal 7-25 [facility] Comment on above: Performed By: #### C MP, MG, CBC #### [address] MR head/brain wo/w conon MR head/brain wo/w con [facility] Main [place] [address] [place] [address] MRI Report Signed Patient: Michelle Be MR#: [id number] : 1960 Acct:[id number] Age/Sex: 63 / F ADM Date: 03/03/24 Loc: Room: [address] [place] [address] Type: ADM IN Attending Dr: Delta Gan [...] Willi Guadalupe M.D.03/04/2024 2:32 PM Dictation Location: [place] [address] Transcribed By: [facility] 03/04/24 1432 Dictated By: Willi Guadalupe II, MD 03/04/241423 Signed By: 03/04/24 1432 Normal [facility] Magnesiumon 03-04-2024 Magnesium [Mass/Vol] 2.0 mg/dL Normal 1.9-2.7 [facility] Comment on above: Result Comment: PERF ORMED BY: [place] [address] PATHOLOGIST EQUITIES ANALYST ADIEL AGUSTIN M.D. Performed By: #### C MP, MG, CBC #### [facility] [address] [place] [address] Complete Blood Count Auto Di ffon 03-03-2024 Basophils (Bld) [#/Vol] 0.1 10*3/uL Normal 0.0-0.2 [facility] Comment on above: Order Comment: WEN BELLA,160 Result Comment: PERF ORMED BY: [place] [address] PATHOLOGIST EQUITIES ANALYST ADIEL AGUSTIN M.D. Performed By: #### C BC, CMP #### [address] Basophils/100 WBC (Bld) 0.6 % Normal . [facility] Comment on above: Order Comment: WEN BELLA,160 Performed By: #### C ANAMARIA, CMP #### [place] [address] [place] Eosinophils (Bld) [#/Vol] 0.1 10*3/uL Normal 0.0-0.45 [facility] Comment on above: Order Comment: RIN T O COME TRY,KAH,1607 Performed By: #### C BC, CMP #### [place] [address] [place] Eosinophils/100 WBC (Bld) 1.0 % Normal . [facility] Comment on above: Order Comment: RIN T O COME TRY,KAH,1607 Performed By: #### C BC, CMP #### [address] Erythrocyte distribution width (RBC) [Ratio] 14.6 % Normal 11.9-15.3 [facility] Comment on above: Order Comment: RIN T O COME TRY,KAH,1607 Performed By: #### C BC, CMP #### [address] Hematocrit (Bld) [Volume fraction] 42.9 % Normal 34.0-46.4 [facility] Comment on above: Order Comment: RIN T O COME TRY,KAH,1607 Performed By: #### C BC, CMP #### [address] Hemoglobin (Bld) [Mass/Vol] 14.5 g/dL Normal 11.8-15.4 [facility] Comment on above: Order Comment: RIN T O COME TRY,KAH,1607 Performed By: #### C BC, CMP #### [place] [address] [place] Lymphocytes (Bld) [#/Vol] 1.7 10*3/uL Normal 1.00-4.8 [facility] Comment on above: Order Comment: RIN T O COME TRY,KAH,1607 Performed By: #### C BC, CMP #### [place] [address] [place] Lymphocytes/100 WBC (Bld) 15.7 % Normal . [facility] Comment on above: Order Comment: RIN T O COME TRY,KAH,1607 Performed By: #### C BC, CMP #### [address] MCH (RBC) [Entitic mass] 29.1 pg Normal 24.7-34.3 [facility] Comment on above: Order Comment: RIN T O COME TRY,KAH,1607 Performed By: #### C BC, CMP #### [address] MCV (RBC) [Entitic vol] 85.9 fL Normal 80-100 [facility] Comment on above: Order Comment: RIN T O COME TRY,KAH,1607 Performed By: #### C BC, CMP #### [address] Mean Corpuscular HGB Conc 33.8 g/dL Normal 32.0-35.0 [facility] Comment on above: Order Comment: RIN T O COME TRY,KAH,1607 Performed By: #### C BC, CMP #### [address] Monocytes (Bld) [#/Vol] 0.9 10*3/uL High 0.0-0.8 [facility] Comment on above: Order Comment: RIN T O COME TRY,KAH,1607 Performed By: #### C BC, CMP #### [address] Monocytes/100 WBC (Bld) 8.4 % Normal . [facility] Comment on above: Order Comment: RIN T O COME TRY,KAH,1607 Performed By: #### C BC, CMP #### [place] [address] [place] Neutrophils (Bld) [#/Vol] 8.0 10*3/uL High 1.8-7.7 [facility] Comment on above: Order Comment: RIN T O COME TRY,KAH,1607 Performed By: #### C BC, CMP #### [place] [address] [place] Neutrophils/100 WBC (Bld) 74.3 % Normal . [facility] Comment on above: Order Comment: RIN T O COME TRY,KAH,1607 Performed By: #### C BC, CMP #### [facility] [address] NRBC% 0.1 /100{WBC} Normal 0-0.5 [facility] Comment on above: Order Comment: RIN T O COME TRY,KAH,1607 Performed By: #### C BC, CMP #### [facility] [address] Platelet mean volume (Bld) [Entitic vol] 8.9 fL Normal 6.3-10.7 [facility] Comment on above: Order Comment: RIN T O COME TRY,KAH,1607 Performed By: #### C BC, CMP #### [facility] [address] Platelets (Bld) [#/Vol] 291 10*3/uL Normal 150-450 [facility] Comment on above: Order Comment: RIN T O COME TRY,KAH,1607 Performed By: #### C BC, CMP #### [facility] [address] [place] [address] [place] RBC (Bld) [#/Vol] 4.99 10*6/uL Normal 3.60-5.00 [facility] Comment on above: Order Comment: RIN T O COME TRY,KAH,1607 Performed By: #### C BC, CMP #### [facility] [address] WBC (Bld) [#/Vol] 10.7 10*3/uL Normal 3.8-11.6 [facility] Comment on above: Order Comment: RIN T O COME TRY,KAH,1607 Performed By: #### C BC, CMP #### [address] Comprehensive Metabolic Pane [place] 03-03-2024 Albumin [Mass/Vol] 4.6 g/dL Normal 3.5-5.7 [facility] Comment on above: Order Comment: RIN T O COME TRY,KAH,160 Performed By: #### C BC, CMP #### [facility] [address] [place] [address] [place] Albumin/Globulin [Mass ratio] 1.4 {ratio} Normal [facility] Comment on above: Order Comment: RIN T O COME TRY,KAH,160 Performed By: #### C BC, CMP #### [facility] [address] [place] [id number] [place] ALP [Catalytic activity/Vol] 80 U/L Normal 34-104 [facility] Comment on above: Order Comment: RIN T O COME TRY,KAH,160 Performed By: #### C BC, CMP #### [facility] [address] [place] [address] [place] ALT [Catalytic activity/Vol] 16 U/L Normal 7-52 [facility] Comment on above: Order Comment: RIN T O COME TRY,KAH,160 Performed By: #### C BC, CMP #### [facility] [address] Anion gap [Moles/Vol] 13.6 mmol/L Normal 6.0-15.0 [facility] Comment on above: Order Comment: RIN T O COME TRY,KAH,160 Performed By: #### C BC, CMP #### [address] AST [Catalytic activity/Vol] 35 U/L Normal 13-39 [facility] Comment on above: Order Comment: RIN T O COME TRY,KAH,160 Performed By: #### C BC, CMP #### [place] [id number] [place] Bilirubin [Mass/Vol] 0.3 mg/dL Normal 0.3-1.0 [facility] Comment on above: Order Comment: RIN T O COME TRY,KAH,160 Performed By: #### C BC, CMP #### [facility] [address] [place] [address] [place] Calcium [Mass/Vol] 9.3 mg/dL Normal 8.6-10.3 [facility] Comment on above: Order Comment: RIN T O COME TRY,KAH,1606 Performed By: #### C BC, CMP #### [address] Chloride [Moles/Vol] 109 mmol/L High 98-107 [facility] Comment on above: Order Comment: RIN T O COME TRY,KAH,1606 Performed By: #### C BC, CMP #### [address] CO2 [Moles/Vol] 22.4 mmol/L Normal 21.0-31.0 [facility] Comment on above: Order Comment: RIN T O COME TRY,KAH,1606 Performed By: #### C BC, CMP #### [address] Creatinine [Mass/Vol] 0.93 mg/dL Normal 0.60-1.20 [facility] Comment on above: Order Comment: RIN T O COME TRY,KAH,1606 Performed By: #### C BC, CMP #### [address] Creatinine Clr Calc Pharmacy 87.94 Normal [facility] Comment on above: Order Comment: RIN T O COME TRY,KAH,1606 Result Comment: PERF ORMED BY: [place] [address] PATHOLOGIST EQUITIES ANALYST ADIEL AGUSTIN M.D. Performed By: #### C BC, CMP #### [address] GFR/1.73 sq M.predicted MDRD (S/P/Bld) [Vol rate/Area] mL/min/{1.73_m2} Normal [facility] Comment on above: Order Comment: RIN T O COME TRY,KAH,1606 Performed By: #### C BC, CMP #### [facility] [address] Globulin (S) [Mass/Vol] 3.2 g/dL Normal [facility] Comment on above: Order Comment: RIN T O COME TRY,KAH,1606 Performed By: #### C BC, CMP #### [facility] [address] [place] [id number] [facility] Glucose [Mass/Vol] 105 mg/dL High 70-100 [facility] Comment on above: Order Comment: REY T O COME TRY,KAH,1606 Result Comment: [facility] Glucose Reference Range is dependent on time and content of last meal. Glucose of more than 200 mg/dL in a nonstressed, ambulatory subject supports the diagnosis of Diabetes Mellitus. ADA recommended reference range Performed By: #### C BC, CMP #### [facility] [address] [place] [id number] [facility] Potassium [Moles/Vol] 4.0 mmol/L Normal 3.5-5.1 [facility] Comment on above: Order Comment: REY T O COME TRY,,1606 Performed By: #### C BC, CMP #### [facility] [address] [place] [id number] [place] Protein [Mass/Vol] 7.8 g/dL Normal 6.4-8.9 [facility] Comment on above: Order Comment: REY T O JAK TRY,KAH,1606 Performed By: #### C BC, CMP #### [facility] [address] [place] [id number] [place] Sodium [Moles/Vol] 141 mmol/L Normal 136-145 [facility] Comment on above: Order Comment: REY T O JAK TRY,,1606 Performed By: #### C BC, CMP #### [facility] [address] [place] [id number] [place] Urea nitrogen [Mass/Vol] 15 mg/dL Normal 7-25 [facility] Comment on above: Order Comment: REY T O JAK TRY,,1606 Performed By: #### C BC, CMP #### [facility] [address] [place] [id number] [place] IGP,APTIMA HPV,AGE GDLNon AGE GDLN ACOG TESTING Note . [facility] Comment on above: TESTS RESULT FLAG UN ITS REF RANGE LAB Clinician Provided Cytology Information Source.............Cervix;Endocervix No. of containers..01 ThinPrep Vial Age Gigi WILDE Tona... 3065 FLAG LEGEND: L-Low Normal,H-High Normal,LL-Alert Low,HH-Alert High <-Panic Low,>-Panic High,A-Abnormal,AA-Critical Abnormal Performed at: 01 =G [address] [address] Farzana Hennessy MD, HPV APTIMA Negative Negative [facility] Comment on above: This nucleic acid am plification test detects fourteen high- risk HPV types (16,18,31,33,35,39,45,51,52,56,58,59,66,68) without differentiation. Performed at: =G - [facility] [id number] Civil Rights Investigator: Farzana Hennessy MD, Phone: [phone] Performed at: [facility] [id number] [place] [id number] Civil Rights Investigator: Scott Sandoval MD, Phone: [phone] IGP, APTIMA HPV, RFX 16/18,45 Note . [facility] Comment on above: TESTS RESULT FLAG UN ITS REF RANGE LAB DIAGNOSIS: 02 NEGATIVE FOR INTRAEPITHELIAL LESION OR MALIGNANCY. Specimen adequacy: 02 Satisfactory for evaluation. Endocervical and/or squamous metaplastic cells (endocervical component) are present. Performed by: 02 Adelaida Bustamante, Inspector Circuitry Negative ([facility]) . 02 Note: Note 03 [...] High,A-Abnormal,AA-Critical Abnormal Performed at: 02 [facility] [address] [place] [address] Scott Sandoval MD, 03 WB [facility] [address] [address] Farzana Hennessy MD, BROOM-ALONE [facility]IX [facility] Urinalysis macro (dipstick) panel (U)on 01-28-2024 Bilirubin, UA Negative Negative - 4(70) +++ mg/dL [facility] Blood, UA Negative Negative - 50 Kranthi/mcL [facility] Clarity, UA Clear [facility] Color, UA Dark Tania [facility] Glucose, UA Negative Negative - 1999(110) ++++ mg/dL [facility] Interpretation and review of laboratory results Abnormal [facility] Ketones, UA Negative Negative - 160(16) ++++ mg/dL [facility] Leukocytes, UA Trace Negative - 500+++ Radha/mcL [facility] Nitrite, UA Negative Negative - Positive [facility] pH, UA 5.5 5 - 9 [facility] Protein, UA Negative Negative - 1999(20) ++++ mg/dL [facility] Spec Grav, UA 1.025 1 - 1.03 [facility] Urobilinogen, UA 0.2 0.2 - 12 mg/dL [facility]PT CULT,URINEon 01-23-2024 Interpretation and review of [facility] results [facility] .[facility] ESCHERICHIA COLI >100,000 CFU/ML [facility] STREPTOCOCCI, BETA HEMOLYTIC GROUP B 10 to 50,000 CFU/ML [facility] Report Status FINAL 01/23/2024 [facility] Organism ESCHERICHIA COLI [facility] Method CROW [facility] Ampicillin 16 INTERMEDIATE Intermediate [facility] Cefazolin <=4 SUSCEPTIBLE Susceptible [facility] Cefazolin sensitivit y results can be used to predict the effectiveness of oral Susceptible [facility] cephalosporins (eg. Cephalexin) in uncomplicated Urinary Tract Infections due Susceptible [facility] MHPT CULT,URINE to E. coli, K. pneumoniae, and P. mirabilis Susceptible [facility] CULT,URINE Ceftriaxone <=0.25 SUSCEPTIBLE Susceptible [facility] Negative Susceptible [facility] CULT,URINE Gentamicin <=1 SUSCEPTIBLE Susceptible [facility] Levofloxacin <=0.12 SUSCEPTIBLE Susceptible [facility] Nitrofurantoin <=16 SUSCEPTIBLE Susceptible [facility] Piperacillin/Tazobac ta m <=4 SUSCEPTIBLE Susceptible [facility] Tobramycin <=1 SUSCEPTIBLE Susceptible [facility] Trimethoprim/Sulfa <=20 SUSCEPTIBLE Susceptible [facility] Original Ordering [facility] METABOLIC PANELon 01-05-2024 Anion gap [Moles/Vol] 11.1 mmol/L [facility] Calcium [Mass/Vol] 9.2 mg/dL 8.5 - 10. 1 mg/dL [facility] Chloride [Moles/Vol] 105 mmol/L 98 - 10 7 mmol/L [facility] CO2 [Moles/Vol] 28.0 mmol/L 21.0 - 32.0 mmol/L [facility] Creatinine [Mass/Vol] 1.08 mg/dL High 0.55 - 1.02 mg/dL [facility] GFR/1.73 sq M.predicted CKD-EPI (S/P/Bld) [Vol rate/Area] >60 60 - PINF [facility] Glucose [Mass/Vol] 92 mg/dL 74 - 106 mg/dL [facility] Interpretation and review of laboratory results Abnormal [facility] Potassium [Moles/Vol] 4.1 mmol/L 3.5 - 5.1 mmol/L [facility] Sodium [Moles/Vol] 140 mmol/L 136 - 145 mmol/L [facility] TBH EGFR-NON AF COLOMBIAN 51 Low 60 - PINF [facility] Urea nitrogen [Mass/Vol] 17.0 mg/dL 7.0 - 18.0 mg/dL [facility] Urea nitrogen/Creatinine [Mass ratio] 15.7 mg/mg [facility] Amphetamine Screen Ql (U)Ord ered By: Jace Graham on 03-23-2023 Amphetamines Ql (U) Negative Negative [facility] Barbiturates [Presence] in U rine by Screen methodOrdered By: Jace Graham on 03-23-2023 Barbiturates Screen Ql (U) Negative Negative [facility] Benzodiazepines Screen Ql (U )Ordered By: Jace Graham on 03-23-2023 Benzodiazepines Ql (U) Negative Negative [facility] Benzoylecgonine [Presence] i n Urine by Screen methodOrdered By: Jace Graham on 03-23-2023 Benzoylecgonine Screen Ql (U) Negative Negative [facility] Cannabinoids [Presence] in U rine by Screen methodOrdered By: Jace Graham on 03-23-2023 Cannabinoids Screen Ql (U) Negative Negative [facility] Comment on above: These are unconfirme d results and should not be used for legal purposes. Drug Cut-Off Concentration: AMPH 1000 ng/mL ELKIN 200 ng/mL ATIYA 200 ng/mL COCM 300 ng/mL OP 300 ng/mL PCP 25 ng/mL THC 20 ng/mL Opiates [Presence] in Urine by Screen methodOrdered By: Jace Graham on 03-23-2023 Opiates Screen Ql (U) Negative Negative [facility] Phencyclidine Screen Ql (U)O rdered By: Jace Graham on 03-23-2023 Phencyclidine Ql (U) Negative Negative [facility] Cholesterol [Mass/volume] in Serum or PlasmaOrdered By: Eduardo Monk on 11-18-2022 Cholesterol [Mass/Vol] 159 mg/dL 140-200 [facility] Comment on above: Chol less than 200 m g/dl low riskChol 201-239 mg/dl borderline riskChol 240 mg/dl and greater high risk Cholesterol in LDL Calc [Mas s/Vol]Ordered By: Eduardo Monk on 11-18-2022 Cholesterol in LDL [Mass/Vol] 84 mg/dL 0-100 [facility] Comment on above: LDL ATP III CLASSIFI CATIONLDL less than 100 mg/dL OptimalLDL 100-129 mg/dL Near or above optimalLDL 130-159 mg/dL Borderline highLDL 160-189 mg/dL HighLDL greater than 189 mg/dL Very high Cholesterol in VLDL Calc [Ma ss/Vol]Ordered By: Eduardo Monk on 11-18-2022 Cholesterol in VLDL [Mass/Vol] 28 mg/dL [facility] Serum or plasma high density lipoprotein (HDL) cholesterol measurementOrdered By: Eduardo Monk on 11-18-2022 Cholesterol in HDL [Mass/Vol] 46 mg/dL 23-92 [facility] Comment on above: HDL CHOL ATP-III CLA SSIFICATION Cardiovascular RiskHDL > or equal to 60 mg/dL LOWHDL < 40 mg/dL HIGH Serum or plasma total choles terol/high density lipoprotein (HDL) cholesterol mass ratOrdered By: Eduardo Monk on 11-18-2022 Cholesterol.total/Chol esterol in HDL [Mass ratio] 3.5 {ratio} <5.0 [facility] Thyrotropin [Units/volume] i n Serum or PlasmaOrdered By: Eduardo Monk on 11-18-2022 TSH Qn 2.13 m[IU]/L 0.45-5.33 [facility] Triglyceride [Mass/volume] i n Serum or PlasmaOrdered By: Eduardo Monk on 11-18-2022 Triglyceride [Mass/Vol] 144 mg/dL 0-149 [facility] Comment on above: TRIG ATP III CLASSIF ICATIONTRIG less than 150 mg/dL NormalTRIG 150-199 mg/dL Borderline highTRIG 200-500 mg/dL High TRIG greater than 500 mg/dL Very highStandard traceable to the Center for Disease Conrtrol and Prevention (CDC) test method. Vitamin D+Metabolites [Mass/ volume] in Serum or PlasmaOrdered By: Eduardo Monk on 11-18-2022 Vitamin D+Metabolites [Mass/Vol] 50.4 ng/mL 30-100 [facility] Comment on above: VITAMIN D STATUS 25( [place])VITAMIN D RANGE (ng/mL) Deficient <20 Insufficient 20 to <30Sufficient 30 to 100Reference: Bin MF,Lakshmi NC, Cristian SMART, et al. Evaluation,treatment, and prevention of vitamin D deficiency; an Endocrine Society clinical practice guideline. JCEM. 2010; 96(7):1911-30. CBC AUTO DIFFon 07-25-2022 BASO # 0.1 103/ul Normal 0.0-0.1 [facility] Comment on above: Performed By: #### A 1C #### [facility] [address] [place] [address] Dr. Bebeto Alvarado Basophils/100 WBC (Bld) 0.6 % Normal 0.2-2.0 [facility] Comment on above: Performed By: #### A 1C #### [facility] [address] [address] [address] Bebeto Alvarado EO # 0.2 103/ul Normal 0.0-0.7 [facility] Comment on above: Performed By: #### A 1C #### [facility] [address] [place] [address] Dr. Bebeto Alvarado Eosinophils/100 WBC (Bld) 2.3 % Normal 0.9-7.0 [facility] Comment on above: Performed By: #### A 1C #### [facility] [address] [place] [address] Dr. Bebeto Alvarado Erythrocyte distribution width (RBC) [Ratio] 13.8 % Normal 11.0-15.0 [facility] Comment on above: Performed By: #### A 1C #### [facility] [address] [place] [address] Dr. Bebeto Alvarado Hematocrit (Bld) [Volume fraction] 41.2 % Normal 36.0-48.0 [facility] Comment on above: Performed By: #### A 1C #### [facility] [address] [place] [address] Dr. Bebeto Alvarado Hemoglobin (Bld) [Mass/Vol] 13.2 g/dL Normal 12.0-16.0 [facility] Comment on above: Performed By: #### A 1C #### [facility] [address] [place] [address] Dr. Bebeto Alvarado IG # 0.03 10e3/ul Normal 0.00-0.03 [facility] Comment on above: Performed By: #### A 1C #### [facility] [address] [place] [address] Dr. Bebeto Alvarado IG % 0.4 % Normal 0.0-0.5 [facility] Comment on above: Performed By: #### A 1C #### [facility] [address] [place] [address] Dr. Bebeto Alvarado LYMPH # 2.1 103/ul Normal 1.2-3.8 [facility] Comment on above: Performed By: #### A 1C #### [facility] [address] [place] [address] Dr. Bebeto Alvarado Lymphocytes/100 WBC (Bld) 25.9 % Normal 20.5-60.0 [facility] Comment on above: Performed By: #### A 1C #### [facility] [address] [place] [address] Dr. Bebeto Alvarado MANUAL DIFF REQ NO Normal [facility] Comment on above: Performed By: #### A 1C #### [facility] [address] [place] [address] Dr. Bebeto Alvarado MCH (RBC) [Entitic mass] 28.0 pg Normal 26.7-34.0 [facility] Comment on above: Performed By: #### A 1C #### [facility] [address] [place] [address] Dr. Bebeto Alvarado MCHC (RBC) [Mass/Vol] 32.0 g/dL Normal 29.9-35.2 [facility] Comment on above: Performed By: #### A 1C #### [facility] [address] [place] [address] Dr. Bebeto Alvarado MCV (RBC) [Entitic vol] 87.5 fL Normal 81.0-99.0 [facility] Comment on above: Performed By: #### A 1C #### [facility] [address] [place] [address] Dr. Bebeto Alvarado MONO # 0.5 103/ul Normal 0.3-0.8 [facility] Comment on above: Performed By: #### A 1C #### [facility] [address] [place] [address] Dr. Bebeto Alvarado Monocytes/100 WBC (Bld) 6.6 % Normal 1.7-12.0 [facility] Comment on above: Performed By: #### A 1C #### [facility] [address] [place] [address] Dr. Bebeto Alvarado NEUT # 5.1 103/ul Normal 1.4-6.5 [facility] Comment on above: Performed By: #### A 1C #### [facility] [address] [place] [address] Dr. Bebeto Alvarado Neutrophils/100 WBC (Bld) 64.2 % Normal 43.0-75.0 [facility] Comment on above: Performed By: #### A 1C #### [facility] [address] [address] [address] Bebeto Alvarado Platelet mean volume (Bld) [Entitic vol] 11.2 fL Normal 9.5-13.5 [facility] Comment on above: Performed By: #### A 1C #### [facility] [address] [place] [address] Dr. Bebeto Alvarado PLT 252 103/ul Normal 150-450 [facility] Comment on above: Performed By: #### A 1C #### [facility] [address] [place] [address] Dr. Bebeto Alvarado RBC 4.71 106/ul Normal 4.20-5.40 [facility] Comment on above: Performed By: #### A 1C #### [facility] [address] [place] [address] Dr. Bebeto Alvarado WBC 8.0 103/ul Normal 4.0-11.0 [facility] Comment on above: Performed By: #### A 1C #### [facility] [address] [place] [address] Dr. Bebeto Alvarado GLYCOHEMOGLOBIN A1Con 2022 ADA RECOMMENDATION SEE BELOW Normal [facility] Comment on above: Result Comment: ADA RECOMMENDED LIMIT 4.0 - 6.0 ADA THERAPEUTIC TARGET < 7.0 ACTION SUGGESTED > 7.0 Performed By: #### A 1C #### [facility] [address] [place] [address] Dr. Bebeto Alvarado Glucose [Mass/Vol] 114 mg/dL Normal [facility] Comment on above: Performed By: #### A 1C #### [facility] [address] [place] [address] Dr. Bebeto Alvarado HbA1c (Bld) [Mass fraction] 5.6 % Normal 4.5-6.2 [facility] Comment on above: Performed By: #### A 1C #### [facility] [address] [place] [address] Dr. Bebeto Alvarado IRONon 07-25-2022 Iron [Mass/Vol] 60.0 ug/dL Normal 50.0-170.0 [facility] Comment on above: Performed By: #### V ITB12, IRON #### [facility] [address] [place], [place] [address] Dr. Bebeto Avlarado LIPID PROFILEon 07-25-2022 CHOL-HDL RATIO NORM SEE BELOW Normal [facility] Comment on above: Result Comment: 3.3 - 4.4 LOW RISK 4.4 - 7.1 AVERAGE RISK 7.1 - 11.0 MODERATE RISK >11.0 HIGH RISK Performed By: #### C MP, LIPID #### [facility] [address] [address] [address] Bebeto Alvarado Cholesterol [Mass/Vol] 144 mg/dL Normal <=200 [facility] Comment on above: Performed By: #### C MP, LIPID #### [facility] [address] [address] [address] Bebeto Alvarado Cholesterol in HDL [Mass/Vol] 39 mg/dL Critically low 40-60 [facility] Comment on above: Performed By: #### C MP, LIPID #### [facility] [address] [address] [address] Bebeto Alvarado Cholesterol in LDL [Mass/Vol] 74.6 mg/dL Normal [facility] Comment on above: Performed By: #### C MP, LIPID #### [facility] [address] [place], [place] [address] Dr. Bebeto Alvarado Cholesterol.total/Chol esterol in HDL [Mass ratio] 3.7 {ratio} Normal [facility] Comment on above: Performed By: #### C MP, LIPID #### [facility] [address] [address] [address] Bebeto Alvarado HDL NORMAL > or = 60 mg/dl - LO W CARDIOVASCULAR RISK <40 mg/dl - HIGH CARDIOVASCULAR RISK Normal [facility] Comment on above: Performed By: #### C MP, LIPID #### [facility] [address] [address] [address] Bebeto Alvarado LDL CALC NORMAL SEE BELOW Normal [facility] Comment on above: Result Comment: <100 mg/dl OPTIMAL 100 - 129 mg/dl NEAR OR ABOVE OPTIMAL 130 - 159 mg/dl BORDERLINE HIGH 160 - 189 mg/dl HIGH >190 mg/dl VERY HIGH Performed By: #### C MP, LIPID #### [facility] [address] [place] [address] Dr. Bebeto Alvarado Triglyceride [Mass/Vol] 152 mg/dL Critically high <=150 [facility] Comment on above: Performed By: #### C MP, LIPID #### [facility] [address] [place] [address] Dr. Bebeto Alvarado VLDL CALC 30.4 mg/dL Normal [facility] Comment on above: Performed By: #### C MP, LIPID #### [facility] [address] [place] [address] Dr. Bebeto Alvarado PROF 14(COMP METB)on 023 Albumin [Mass/Vol] 3.7 g/dL Normal 3.4-5.0 [facility] Comment on above: Performed By: #### C MP, LIPID #### [facility] [address] [place] [address] Dr. Bebeto Alvarado Albumin/Globulin [Mass ratio] 0.9 {ratio} Normal [facility] Comment on above: Performed By: #### C MP, LIPID #### [facility] [address] [place] [address] Dr. Bebeto Alvarado ALP [Catalytic activity/Vol] 90 U/L Normal 46-116 [facility] Comment on above: Performed By: #### C MP, LIPID #### [facility] [address] [place] [address] Dr. Bebeto Alvarado ALT [Catalytic activity/Vol] 38 U/L Normal 14-59 [facility] Comment on above: Performed By: #### C MP, LIPID #### [facility] [address] [place] [address] Dr. Bebeto Alvarado Anion gap [Moles/Vol] 12.1 mmol/L Normal [facility] Comment on above: Performed By: #### C MP, LIPID #### [facility] [address] [place] [address] Dr. Bebeto Alvarado AST [Catalytic activity/Vol] 26 U/L Normal 15-37 [facility] Comment on above: Performed By: #### C MP, LIPID #### [facility] [address] [place] [address] Dr. Bebeto Alvarado Bilirubin [Mass/Vol] 0.3 mg/dL Normal 0.2-1.0 [facility] Comment on above: Performed By: #### C MP, LIPID #### [facility] [address] [place] [address] Dr. Bebeto Alvarado Calcium [Mass/Vol] 9.3 mg/dL Normal 8.5-10.1 [facility] Comment on above: Performed By: #### C MP, LIPID #### [facility] [address] [place] [address] Dr. Bebeto Alvarado Chloride [Moles/Vol] 107 mmol/L Normal 98-107 [facility] Comment on above: Performed By: #### C MP, LIPID #### [facility] [address] [place] [address] Dr. Bebeto Alvarado CO2 [Moles/Vol] 27.9 mmol/L Normal 21.0-32.0 [facility] Comment on above: Performed By: #### C MP, LIPID #### [facility] [address] [place] [address] Dr. Bebeto Alvarado Creatinine [Mass/Vol] 0.95 mg/dL Normal 0.55-1.02 [facility] Comment on above: Performed By: #### C MP, LIPID #### [facility] [address] [place] [address] Dr. Bebeto Alvarado EGFR-AF COLOMBIAN >60 Normal >=60 [facility] Comment on above: Performed By: #### C MP, LIPID #### [facility] [address] [place] [address] Dr. Bebeto Alvarado EGFR-NON AF COLOMBIAN 60 mL/min/1.73m2 Normal >=60 [facility] Comment on above: Performed By: #### C MP, LIPID #### [facility] [address] [place] [address] Dr. Bebeto Alvarado Globulin (S) [Mass/Vol] 3.9 g/dL Normal [facility] Comment on above: Performed By: #### C MP, LIPID #### [facility] [address] [place] [address] Dr. Bebeto Alvarado Glucose [Mass/Vol] 108 mg/dL Critically high 74-[address] [facility] Comment on above: Performed By: #### C MP, LIPID #### [facility] [address] [place] [address] Dr. Bebeto Alvarado Potassium [Moles/Vol] 4.0 mmol/L Normal 3.5-5.1 [facility] Comment on above: Performed By: #### C MP, LIPID #### [facility] [address] [place] [address] Dr. Bebeto Alvarado Protein [Mass/Vol] 7.6 g/dL Normal 6.4-8.2 [facility] Comment on above: Performed By: #### C MP, LIPID #### [facility] [address] [place] [address] Dr. Bebeto Alvarado Sodium [Moles/Vol] 143 mmol/L Normal 136-145 [facility] Comment on above: Performed By: #### C MP, LIPID #### [facility] [address] [place] [address] Dr. Bebeto Alvarado Urea nitrogen [Mass/Vol] 15.0 mg/dL Normal 7.0-18.0 [facility] Comment on above: Performed By: #### C MP, LIPID #### [facility] [address] [place] [address] Dr. Bebeto Alvarado Urea nitrogen/Creatinine [Mass ratio] 15.8 mg/mg Normal [facility] Comment on above: Performed By: #### C MP, LIPID #### [facility] [address] [place] [address] Dr. Bebeto Alvarado UA RANDOM W/MICROSCOPICon BACTERIA NONE SEEN Normal NONE SEEN [facility] Comment on above: Performed By: #### A 1C #### [facility] [address] [place] [address] Dr. Bebeto Alvarado Bilirubin Ql (U) Negative Normal NEGATIVE [facility] Comment on above: Performed By: #### A 1C #### [facility] [address] [place] [address] Dr. Bebeto Alvarado CAST NONE SEEN Normal NONE SEEN [facility] Comment on above: Performed By: #### A 1C #### [facility] [address] [place] [address] Dr. Bebeto Alvarado Clarity (U) CLEAR Normal CLEAR [facility] Comment on above: Performed By: #### A 1C #### [facility] [address] [place] [address] Dr. Bebeto Alvarado Color (U) YELLOW Normal YELLOW [facility] Comment on above: Performed By: #### A 1C #### [facility] [address] [place] [address] Dr. Bebeto Alvarado Crystals LM Nom (Urine sed) NONE SEEN Normal NONE SEEN [facility] Comment on above: Performed By: #### A 1C #### [facility] [address] [place] [address] Dr. Bebeto Alvarado Epithelial cells LM Ql (Urine sed) NONE SEEN Normal NONE SEEN /RARE [facility] Comment on above: Performed By: #### A 1C #### [facility] [address] [place] [address] Dr. Bebeto Alvarado Glucose Ql (U) Negative Normal NEGATIVE [facility] Comment on above: Performed By: #### A 1C #### [facility] [address] [place] [address] Dr. Bebeto Alvarado Hemoglobin Ql (U) Negative Normal NEGATIVE [facility] Comment on above: Performed By: #### A 1C #### [facility] [address] [place] [address] Dr. Bebeto Alvarado Ketones Ql (U) Negative Normal NEGATIVE [facility] Comment on above: Performed By: #### A 1C #### [facility] [address] [place] [address] Dr. Bebeto Alvarado LEUKOCYTES Negative Normal NEGATIVE [facility] Comment on above: Performed By: #### A 1C #### [facility] [address] [place] [address] Dr. Bebeto Alvarado MUCOUS NONE SEEN Normal NONE SEEN [facility] Comment on above: Performed By: #### A 1C #### [facility] [address] [place] [address] Dr. Bebeto Alvarado Nitrite Ql (U) Negative Normal NEGATIVE [facility] Comment on above: Performed By: #### A 1C #### [facility] [address] [place] [address] Dr. Bebeto Alvarado pH (U) 5.5 [pH] Normal 5-9 [facility] Comment on above: Performed By: #### A 1C #### [facility] [address] [place] [address] Dr. Bebeto Alvarado RBC NONE SEEN Abnormal 0-2 [facility] Comment on above: Performed By: #### A 1C #### [facility] [address] [place] [address] Dr. Bebeto Alvarado SPEC GRAVITY 1.030 Abnormal 1.005-<=1.02 5 [facility] Comment on above: Performed By: #### A 1C #### [facility] [address] [place] [address] Dr. Bebeto Alvarado UA PROTEIN Negative Normal NEGATIVE/ TRACE [facility] Comment on above: Performed By: #### A 1C #### [facility] [address] [place] [address] Dr. Bebeto Alvarado Urobilinogen Qn (U) 0.2 {Katerin'U}/dL Normal 0.2 - 1. 0 [facility] Comment on above: Performed By: #### A 1C #### [facility] [address] [place] [address] Dr. Bebeto Alvarado WBC NONE SEEN Normal NONE SEEN [facility] Comment on above: Performed By: #### A 1C #### [facility] [address] [place] [address] Dr. Bebeto Alvarado VITAMIN B12on 07-25-2022 Cobalamin (Vitamin B12) [Mass/Vol] 1684.0 pg/mL Critically high 193.0-986.0 [facility] Comment on above: Performed By: #### V ITB12, IRON #### [facility] [address] [address] [address] Bebeto Alvarado PROF CHEM 8 (BAS METB)on Anion gap [Moles/Vol] 12.2 mmol/L Normal Th [facility] Comment on above: Performed By: #### B MP #### [facility] [address] [address] [address] Bebeto Alvarado Calcium [Mass/Vol] 8.9 mg/dL Normal 8.5-10.1 [facility] Comment on above: Performed By: #### B MP #### [facility] [address] [address] [address] Bebeto Alvarado Chloride [Moles/Vol] 105 mmol/L Normal 98-107 [facility] Comment on above: Performed By: #### B MP #### [facility] [address] [address] [address] Bebeto Alvarado CO2 [Moles/Vol] 29.6 mmol/L Normal 21.0-32.0 [facility] Comment on above: Performed By: #### B MP #### [facility] [address] [place] [address] Dr. Bebeto Alvarado Creatinine [Mass/Vol] 0.95 mg/dL Normal 0.55-1.02 [facility] Comment on above: Performed By: #### B MP #### [facility] [address] [address] [address] Bebeto Alvarado EGFR-AF COLOMBIAN >60 Normal >=60 [facility] Comment on above: Performed By: #### B MP #### [facility] [address] [address] [address] Bebeto Alvarado EGFR-NON AF COLOMBIAN 60 mL/min/1.73m2 Normal >=60 [facility] Comment on above: Performed By: #### B MP #### [facility] [address] [address] [address] Bebeto Alvarado Glucose [Mass/Vol] 101 mg/dL Normal 74-106 [facility] Comment on above: Performed By: #### B MP #### [facility] [address] [address] [address] Bebeto Alvarado Potassium [Moles/Vol] 3.8 mmol/L Normal 3.5-5.1 [facility] Comment on above: Performed By: #### B MP #### [facility] [address] [address] [address] Bebeto Alvarado Sodium [Moles/Vol] 143 mmol/L Normal 136-145 [facility] Comment on above: Performed By: #### B MP #### [facility] [address] [address] [address] Bebeto Alvarado Urea nitrogen [Mass/Vol] 16.0 mg/dL Normal 7.0-18.0 [facility] Comment on above: Performed By: #### B MP #### [facility] [address] [place] [address] Dr. Bebeto Alvarado Urea nitrogen/Creatinine [Mass ratio] 16.8 mg/mg Normal [facility] [facility] Comment on above: Performed By: #### B MP #### [facility] [address] [place] [address] Dr. Bebeto Alvarado CBC AUTO DIFFon 11-21-2021 BASO # 0.1 103/ul Normal 0.0-0.1 [facility] Comment on above: Performed By: #### A 1C #### [facility] [address] [place] [address] Dr. Bebeto Alvarado Basophils/100 WBC (Bld) 1.0 % Normal 0.2-2.0 [facility] Comment on above: Performed By: #### A 1C #### [facility] [address] [place] [address] Dr. Bebeto Alvarado EO # 0.2 103/ul Normal 0.0-0.7 [facility] Comment on above: Performed By: #### A 1C #### [facility] [address] [place] [address] Dr. Bebeto Alvarado Eosinophils/100 WBC (Bld) 3.3 % Normal 0.9-7.0 [facility] Comment on above: Performed By: #### A 1C #### [facility] [address] [place] [address] Dr. Bebeto Alvarado Erythrocyte distribution width (RBC) [Ratio] 13.8 % Normal 11.0-15.0 [facility] Comment on above: Performed By: #### A 1C #### [facility] [address] [place] [address] Dr. Bebeto Alvarado Hematocrit (Bld) [Volume fraction] 38.8 % Normal 36.0-48.0 [facility] Comment on above: Performed By: #### A 1C #### [facility] [address] [place] [address] Dr. Bebeto Alvarado Hemoglobin (Bld) [Mass/Vol] 12.5 g/dL Normal 12.0-16.0 [facility] Comment on above: Performed By: #### A 1C #### [facility] [address] [place] [address] Dr. Bebeto Alvarado IG # 0.02 10e3/ul Normal 0.00-0.03 [facility] Comment on above: Performed By: #### A 1C #### [facility] [address] [place] [address] Dr. Bebeto Alvarado IG % 0.3 % Normal 0.0-0.5 [facility] Comment on above: Performed By: #### A 1C #### [facility] [address] [place] [address] Dr. Bebeto Alvarado LYMPH # 1.9 103/ul Normal 1.2-3.8 [facility] Comment on above: Performed By: #### A 1C #### [facility] [address] [place] [address] Dr. Bebeto Alvarado Lymphocytes/100 WBC (Bld) 29.6 % Normal 20.5-60.0 [facility] Comment on above: Performed By: #### A 1C #### [facility] [address] [place] [address] Dr. Bebeto Alvarado MANUAL DIFF REQ NO Normal [facility] Comment on above: Performed By: #### A 1C #### [facility] [address] [place] [address] Dr. Bebeto Alvarado MCH (RBC) [Entitic mass] 28.0 pg Normal 26.7-34.0 [facility] Comment on above: Performed By: #### A 1C #### [facility] [address] [place] [address] Dr. Bebeto Alvarado MCHC (RBC) [Mass/Vol] 32.2 g/dL Normal 29.9-35.2 [facility] Comment on above: Performed By: #### A 1C #### [facility] [address] [place] [address] Dr. Bebeto Alvarado MCV (RBC) [Entitic vol] 86.8 fL Normal 81.0-99.0 [facility] Comment on above: Performed By: #### A 1C #### [facility] [address] [place] [address] Dr. Bebeto Alvarado MONO # 0.4 103/ul Normal 0.3-0.8 [facility] Comment on above: Performed By: #### A 1C #### [facility] [address] [place] [address] Dr. Bebeto Alvarado Monocytes/100 WBC (Bld) 5.7 % Normal 1.7-12.0 [facility] Comment on above: Performed By: #### A 1C #### [facility] [address] [place] [address] Dr. Bebeto Alvarado NEUT # 3.8 103/ul Normal 1.4-6.5 [facility] Comment on above: Performed By: #### A 1C #### [facility] [address] [place] [address] Dr. Bebeto Alvarado Neutrophils/100 WBC (Bld) 60.1 % Normal 43.0-75.0 [facility] Comment on above: Performed By: #### A 1C #### [facility] [address] [place] [address] Dr. Bebeto Alvarado Platelet mean volume (Bld) [Entitic vol] 11.0 fL Normal 9.5-13.5 [facility] Comment on above: Performed By: #### A 1C #### [facility] [address] [address] [address] Bebeto Alvarado PLT 264 103/ul Normal 150-450 [facility] Comment on above: Performed By: #### A 1C #### [facility] [address] [address] [address] Bebeto Alvarado RBC 4.47 106/ul Normal 4.20-5.40 [facility] Comment on above: Performed By: #### A 1C #### [facility] [address] [address] [address] Bebeto Alvarado WBC 6.3 103/ul Normal 4.0-11.0 [facility] Comment on above: Performed By: #### A 1C #### [facility] [address] [address] [address] Bebeto Alvarado GLYCOHEMOGLOBIN A1Con 2021 ADA RECOMMENDATION SEE BELOW Normal [facility] Comment on above: Result Comment: ADA RECOMMENDED LIMIT 4.0 - 6.0 ADA THERAPEUTIC TARGET < 7.0 ACTION SUGGESTED > 7.0 Performed By: #### A 1C #### [facility] [address] [address] [address] Bebeto Alvarado Glucose [Mass/Vol] 105 mg/dL Normal [facility] Comment on above: Performed By: #### A 1C #### [facility] [address] [address] [address] Bebeto Alvarado HbA1c (Bld) [Mass fraction] 5.3 % Normal 4.5-6.2 [facility] Comment on above: Performed By: #### A 1C #### [facility] [address] [address] [address] Bebeto Alvarado IRONon 11-21-2021 Iron [Mass/Vol] 59.0 ug/dL Normal 50.0-170.0 [facility] Comment on above: Performed By: #### A 1C #### [facility] [address] [address] [address] Bebeto Alvarado LIPID PROFILEon 11-21-2021 CHOL-HDL RATIO NORM SEE BELOW Normal [facility] Comment on above: Result Comment: 3.3 - 4.4 LOW RISK 4.4 - 7.1 AVERAGE RISK 7.1 - 11.0 MODERATE RISK >11.0 HIGH RISK Performed By: #### C MP, LIPID #### [facility] [address] [address] [address] Bebeto Alvarado Cholesterol [Mass/Vol] 139 mg/dL Normal <=200 [facility] Comment on above: Performed By: #### C MP, LIPID #### [facility] [address] [address] [address] Bebeto Alvarado Cholesterol in HDL [Mass/Vol] 35 mg/dL Critically low 40-60 [facility] Comment on above: Performed By: #### C MP, LIPID #### [facility] [address] [address] [address] Bebeto Alvarado Cholesterol in LDL [Mass/Vol] 69.6 mg/dL Normal [facility] Comment on above: Performed By: #### C MP, LIPID #### [facility] [address] [address] [address] Bebeto Alvarado Cholesterol.total/Chol esterol in HDL [Mass ratio] 4.0 {ratio} Normal [facility] Comment on above: Performed By: #### C MP, LIPID #### [facility] [address] [address] [address] Bebeto Alvarado HDL NORMAL > or = 60 mg/dl - LO W CARDIOVASCULAR RISK <40 mg/dl - HIGH CARDIOVASCULAR RISK Normal [facility] Comment on above: Performed By: #### C MP, LIPID #### [facility] [address] [address] [address] Bebeto Alvarado LDL CALC NORMAL SEE BELOW Normal [facility] Comment on above: Result Comment: <100 mg/dl OPTIMAL 100 - 129 mg/dl NEAR OR ABOVE OPTIMAL 130 - 159 mg/dl BORDERLINE HIGH 160 - 189 mg/dl HIGH >190 mg/dl VERY HIGH Performed By: #### C MP, LIPID #### [facility] [address] [address] [address] Bebeto Alvarado Triglyceride [Mass/Vol] 172 mg/dL Critically high <=150 [facility] Comment on above: Performed By: #### C MP, LIPID #### [facility] [address] [address] [address] Bebeto Alvarado VLDL CALC 34.4 mg/dL Normal [facility] Comment on above: Performed By: #### C MP, LIPID #### [facility] [address] [place] [address] Dr. Bebeto Alvarado PROF 14(COMP METB)on 022 Albumin [Mass/Vol] 3.8 g/dL Normal 3.4-5.0 [facility] Comment on above: Performed By: #### C MP, LIPID #### [facility] [address] [place] [address] Dr. Bebeto Alvarado Albumin/Globulin [Mass ratio] 1.1 {ratio} Normal [facility] Comment on above: Performed By: #### C MP, LIPID #### [facility] [address] [place] [address] Dr. Bebeto Alvarado ALP [Catalytic activity/Vol] 96 U/L Normal 46-116 [facility] Comment on above: Performed By: #### C MP, LIPID #### [facility] [address] [place] [address] Dr. Bebeto Alvarado ALT [Catalytic activity/Vol] 25 U/L Normal 14-59 [facility] Comment on above: Performed By: #### C MP, LIPID #### [facility] [address] [place] [address] Dr. Bebeto Alvarado Anion gap [Moles/Vol] 11.8 mmol/L Normal [facility] Comment on above: Performed By: #### C MP, LIPID #### [facility] [address] [place] [address] Dr. Bebeto Alvarado AST [Catalytic activity/Vol] 20 U/L Normal 15-37 [facility] Comment on above: Performed By: #### C MP, LIPID #### [facility] [address] [place] [address] Dr. Bebeto Alvarado Bilirubin [Mass/Vol] 0.4 mg/dL Normal 0.2-1.0 [facility] Comment on above: Performed By: #### C MP, LIPID #### [facility] [address] [address] [address] Bebeto Alvarado Calcium [Mass/Vol] 8.8 mg/dL Normal 8.5-10.1 [facility] Comment on above: Performed By: #### C MP, LIPID #### [facility] [address] [address] [address] Bebeto Alvarado Chloride [Moles/Vol] 106 mmol/L Normal 98-107 [facility] Comment on above: Performed By: #### C MP, LIPID #### [facility] [address] [address] [address] Bebeto Alvarado CO2 [Moles/Vol] 27.0 mmol/L Normal 21.0-32.0 [facility] Comment on above: Performed By: #### C MP, LIPID #### [facility] [address] [address] [address] Bebeto Alvarado Creatinine [Mass/Vol] 0.97 mg/dL Normal 0.55-1.02 [facility] Comment on above: Performed By: #### C MP, LIPID #### [facility] [address] [place] [address] Dr. Bebeto Alvarado EGFR-AF COLOMBIAN >60 Normal >=60 [facility] Comment on above: Performed By: #### C MP, LIPID #### [facility] [address] [address] [address] Bebeto Alvarado EGFR-NON AF COLOMBIAN 59 mL/min/1.73m2 Critically low >=60 [facility] Comment on above: Performed By: #### C MP, LIPID #### [facility] [address] [address] [address] Bebeto Alvarado Globulin (S) [Mass/Vol] 3.4 g/dL Normal [facility] Comment on above: Performed By: #### C MP, LIPID #### [facility] [address] [address] [address] Bebeto Alvarado Glucose [Mass/Vol] 103 mg/dL Normal 74-106 [facility] Comment on above: Performed By: #### C MP, LIPID #### [facility] [address] [place] [address] Dr. Bebeto Alvarado Potassium [Moles/Vol] 3.8 mmol/L Normal 3.5-5.1 [facility] Comment on above: Performed By: #### C MP, LIPID #### [facility] [address] [place] [address] Dr. Bebeto Alvarado Protein [Mass/Vol] 7.2 g/dL Normal 6.4-8.2 [facility] Comment on above: Performed By: #### C MP, LIPID #### [facility] [address] [place] [address] Dr. Bebeto Alvarado Sodium [Moles/Vol] 141 mmol/L Normal 136-145 [facility] Comment on above: Performed By: #### C MP, LIPID #### [facility] [address] [place] [address] Dr. Bebeto Alvarado Urea nitrogen [Mass/Vol] 11.0 mg/dL Normal 7.0-18.0 [facility] Comment on above: Performed By: #### C MP, LIPID #### [facility] [address] [place] [address] Dr. Bebeto Alvarado Urea nitrogen/Creatinine [Mass ratio] 11.3 mg/mg Normal [facility] Comment on above: Performed By: #### C MP, LIPID #### [facility] [address] [place] [address] Dr. Bebeto Alvarado URIC ACID SERUMon 11-21-2021 Urate [Mass/Vol] 7.3 mg/dL Critically high 2.6-6.0 [facility] Comment on above: Performed By: #### A 1C #### [facility] [address] [place] [address] Dr. Bebeto Alvarado VITAMIN B12on 11-21-2021 Cobalamin (Vitamin B12) [Mass/Vol] 2123.0 pg/mL Critically high 193.0-986.0 [facility] Comment on above: Performed By: #### A 1C #### [facility] [address] [place] [address] Dr. Bebeto Alvarado Physician Referralon 022 Physician Referral [phone] [id number] Normal [facility] KNEE RIGHT 1 OR 2 VWSon 0 KNEE RIGHT 1 OR 2 VWS [facility] Department of Radiology [address] [place] [address] ======== Patient Name: MICHELLE BE [...] Electronically signed by:Debra Del Cid. Transcribed by: [email or web address], User Resident: Electronically Signed by: DEBRA DEL CID @ 02/08/2019 11:16 AM Normal [facility] Comment on above: Order Comment: , Mabel ws (X-RAY, KNEE): Radiologic Protocol , Weight Bearing?: N , With or Without Brace/Cast/Collar: With , Views (X-RAY, KNEE): Radiologic Protocol , Weight Bearing?: N , With or Without Brace/Cast/Collar: With , , , Ordering Provider - AHSAN BINGHAM PA-C , KNEE RIGHT 1 OR 2 [facility] KNEE RIGHT 1 OR 2 [facility] Department of Radiology [address] [place] [id number] ======== Patient Name: MICHELLE BE : [...] complications. Electronically signed by:Tomasz Stoll. Transcribed by: [email or web address], User Resident: Electronically Signed by: TOMASZ STOLL @ 12/07/2018 11:14 AM Normal [facility] Comment on above: Order Comment: , Mabel ws (X-RAY, KNEE): Radiologic Protocol , Weight Bearing?: N , With or Without Brace/Cast/Collar: With , Views (X-RAY, KNEE): Radiologic Protocol , Weight Bearing?: N , With or Without Brace/Cast/Collar: With , , , Ordering Provider - AHSAN BINGHAM PA-C , KNEE RIGHT 1 OR 2 VWSon 07-0 3-2019 KNEE RIGHT 1 OR 2 VWS [facility] Department of Radiology [address] [place] [address] ======== Patient Name: MICHELLE BE [...] osteoarthritis Electronically signed by:Anup Ellison. Transcribed by: [email or web address], User Resident: Electronically Signed by: ANUP ELLISON @ 10/06/2018 02:48 PM Normal [facility] Comment on above: Order Comment: , Vie ws (X-RAY, KNEE): Radiologic Protocol , Weight Bearing?: N , With or Without Brace/Cast/Collar: With , Views (X-RAY, KNEE): Radiologic Protocol , Weight Bearing?: N , With or Without Brace/Cast/Collar: With , , , Ordering Provider - AHSAN BINGHAM PA-C , KNEE RIGHT 1 OR 2 [facility] 08-05 KNEE RIGHT 1 OR 2 [facility] Department of Radiology [address] [place] [id number] ======== Patient Name: MICHELLE BE : 1960 Sex: F Age: Race: White Pt. Location: Patient Status: Ordered Date: 08/26/2018 2:30:00 PM Completed Date: 08/26/2018 02:54 PM Requesting Provider: AHSAN BINGHAM Attending Provider: Report Copy To: Signs & Symptoms: S82.001A Unsp fracture of right patella, init for clos fx I10 History: [place] Comments: , , , Ordering Provider - AHSAN BINGHAM PA-C , Exam: KNEE RIGHT 1 OR 2 S ======== KNEE RIGHT 1 OR 2 [facility] [...] effusion Electronically signed by:Anup Ellison. Transcribed by: [email or web address], User Resident: Electronically Signed by: ANUP ELLISON @ 08/26/2018 04:56 PM Normal [facility] Comment on above: Order Comment: , Vie ws (X-RAY, KNEE): Radiologic Protocol , Weight Bearing?: N , With or Without Brace/Cast/Collar: With , Views (X-RAY, KNEE): Radiologic Protocol , Weight Bearing?: N , With or Without Brace/Cast/Collar: With , , , Ordering Provider - AHSAN BINGHAM PA-C , KNEE RIGHT 1 OR 2 [facility] 07-06 KNEE RIGHT 1 OR 2 [facility] Department of Radiology [address] [place] [id number] ======== Patient Name: MICHELLE BE : 1960 Sex: F Age: Race: White Pt. Location: 84 Patient Status: Ordered Date: 07/29/2018 2:10:00 PM Completed Date: 07/29/2018 02:12 PM Requesting Provider: AHSAN BINGHAM Attending Provider: Report Copy To: Signs & Symptoms: S82.001A Unsp fracture of right patella, init for clos fx I10 History: [place] Comments: , , , Ordering Provider - [...] compartment Electronically signed by:Anup Ellison. Transcribed by: [email or web address], User Resident: Electronically Signed by: ANUP ELLISON @ 07/29/2018 03:41 PM Normal [facility] Comment on above: Order Comment: , Vie ws (X-RAY, KNEE): Radiologic Protocol , Weight Bearing?: N , With or Without Brace/Cast/Collar: With , Views (X-RAY, KNEE): Radiologic Protocol , Weight Bearing?: N , With or Without Brace/Cast/Collar: With , , , Ordering Provider - AHSAN BINGHAM PA-C , KNEE RIGHT 3 [facility] 9 KNEE RIGHT 3 [facility] Department of Radiology [address] [place] [phone] ======== Patient Name: MICHELLE BE : 1960 Sex: F Age: Race: White Pt. Location: Patient Status: Ordered Date: 07/15/2018 8:45:00 AM Completed Date: 07/15/2018 08:47 AM Requesting Provider: AHSAN BINGHAM Attending Provider: Report Copy To: Signs & Symptoms: S82.001A Unsp fracture of right patella, init for clos fx I10 History: [place] Comments: , , , Ordering Provider - AHSAN BINGHAM PA-C , Exam: KNEE RIGHT 3 [facility] ======== KNEE RIGHT 3 VWS 07/15/2018 [...] knee Electronically signed by:Anup Ellison. Transcribed by: [email or web address], User Resident: Electronically Signed by: ANUP ELLISON @ 07/15/2018 03:31 PM Normal [facility] Comment on above: Order Comment: , Vie ws (X-RAY, KNEE): Radiologic Protocol , Weight Bearing?: N , With or Without Brace/Cast/Collar: With , Views (X-RAY, KNEE): Radiologic Protocol , Weight Bearing?: N , With or Without Brace/Cast/Collar: With , , , Ordering Provider - AHSAN BINGHAM PA-C , Operative Reporton 9 Operative Report MR#: [id number] [facility] Pt. Name: Michelle Be Room #: [...] Duarte MD Date Trans: 07/03/2018 04:28 Monse/terry [id number] Normal [facility] *ANAEROBIC CULTUREon 019 *ANAEROBIC CULTURE Clinical Report: (D) Specimen/Source: SWAB/RT KNEE Collected: 07/02/2018 13:53 Status: Final Last Updated: 07/07/2018 08:02 CULT RES (Final) No Anaerobes Isolated 5 Days Normal [facility] Comment on above: Performed By: #### 3 0312 #### [address] *WOUND CULTUREon 07-02-2018 *WOUND CULTURE Clinical Report: (D) Specimen/Source: WOUND/INTRAOP SPEC Collected: 07/02/2018 13:53 Status: Final Last Updated: 07/07/2018 10:13 (1) #1 RT KNEE GRAM (Final) Rare Polys No Bacteria Seen CULT RES (Final) No Growth Day 5 Normal [facility] Comment on above: Order Comment: #1 RT KNEE Performed By: #### 3 0343 #### [address] KNEE RIGHT 1 OR 2 VWSon 06-05 KNEE RIGHT 1 OR 2 [facility] Department of Radiology [address] [place] [address] ======== Patient Name: MICHELLE BE [...] Electronically signed by:Debra Del Cid. Transcribed by: [email or web address], User Resident: Electronically Signed by: DEBRA DEL CID @ 07/02/2018 02:03 PM Normal [facility] Comment on above: Order Comment: ORIF VS PERCUTANEOUS FIXATION RIGHT PATELLA POC GLUCOSE LABon 07-02-2018 Glucose [Mass/Vol] 108 mg/dL High 70-100 [facility] Comment on above: Performed By: #### 8 5499 #### [address] [address] [place] [address], [facility] APTTon 06-30-2018 aPTT Coag (Bld) [Time] 30.6 s Normal 25.0-35.0 [facility] Comment on above: Result Comment: ALL [...] THIS PURPOSE. Performed By: #### 5 6101, 32347 #### [facility] [address] [facility] [address] BASIC METABOLIC PANELon 06-05 Calcium [Mass/Vol] 9.7 mg/dL Normal 8.6-10.3 [facility] Comment on above: Performed By: #### 0 0071 #### [facility] [address] [facility] [place] [address], [facility] Chloride [Moles/Vol] 102 mmol/L Normal 98-107 [facility] Comment on above: Performed By: #### 0 0071 #### [facility] [address] [facility] [place] [address], [facility] CO2 [Moles/Vol] 28 mmol/L Normal 21-31 [facility] Comment on above: Performed By: #### 0 0071 #### [facility] [address] [facility] [place] [address], [facility] Creatinine [Mass/Vol] 1.20 mg/dL Normal 0.60-1.20 [facility] Comment on above: Performed By: #### 0 0071 #### [facility] [address] [facility] [place] [address], [facility] GFR/1.73 sq M predicted among blacks MDRD (S/P/Bld) [Vol rate/Area] 56 ml/min/1.73sq m Abnormal >60 [facility] Comment on above: Performed By: #### 0 0071 #### [facility] [address] GFR/1.73 sq M predicted among non-blacks MDRD (S/P/Bld) [Vol rate/Area] 47 ml/min/1.73sq m Abnormal >60 [facility] Comment on above: Performed By: #### 0 0071 #### [facility] [address] Glucose [Mass/Vol] 97 mg/dL Normal 70-100 [facility] Comment on above: Performed By: #### 0 0071 #### [facility] [address] Potassium [Moles/Vol] 4.1 mmol/L Normal 3.5-5.1 [facility] Comment on above: Performed By: #### 0 0071 #### [facility] [address] Sodium [Moles/Vol] 137 mmol/L Normal 136-145 [facility] Comment on above: Performed By: #### 0 0071 #### [facility] [address] Urea nitrogen [Mass/Vol] 19 mg/dL Normal 7-25 [facility] Comment on above: Performed By: #### 0 0071 #### [facility] [address] CBC W/DIFFon 06-30-2018 ABS BASOPHILS 0.1 10*3/uL Normal 0.0-0.2 [facility] Comment on above: Performed By: #### 5 102 #### [facility] [address] ABS IMM GRANS 0.0 10*3/uL Normal 0.0-0.2 [facility] Comment on above: Performed By: #### 5 0103 #### [facility] [address] [place] [address], [facility] ABS NEUTROPHILS 6.4 10*3/uL Normal 1.6-7.6 [facility] [facility] Comment on above: Performed By: #### 5 [id number] #### [facility] [address] [place] [address], [facility] Basophils/100 WBC (Bld) 0.7 % Normal 0.0-1.0 [facility] Comment on above: Performed By: #### 3 #### [facility] [address] [place] [address], [facility] Eosinophils (Bld) [#/Vol] 0.2 10*3/uL Normal 0.0-0.5 [facility] Comment on above: Performed By: #### 102 #### [facility] [address] [facility] [place] [address], [facility] Eosinophils/100 WBC (Bld) 1.5 % Normal 0.0-6.0 [facility] Comment on above: Performed By: #### 102 #### [facility] [address] [facility] Erythrocyte distribution width (RBC) [Ratio] 14.4 % Normal 11.5-15.0 [facility] Comment on above: Performed By: #### 3 #### [facility] [address] [facility] [place] [address], [facility] Hematocrit (Bld) [Volume fraction] 40.6 % Normal 36.0-45.0 [facility] Comment on above: Performed By: #### 5 3 #### [facility] [address] [facility] [place] [address], [facility] Hemoglobin (Bld) [Mass/Vol] 13.3 g/dL Normal 12.0-15.0 [facility] Comment on above: Performed By: #### 3 #### [facility] [address] [place] [address], [facility] IMMATURE GRANS 0.4 % Normal 0.0-1.0 [facility] Comment on above: Performed By: #### 5 [id number] #### [facility] [address] [facility] [place] [address], [facility] Lymphocytes (Bld) [#/Vol] 2.6 10*3/uL Normal 1.2-4.0 [facility] Comment on above: Performed By: #### 5 0103 #### [facility] [address] [place] [address], [facility] Lymphocytes/100 WBC (Bld) 26.5 % Normal 20.0-45.0 [facility] Comment on above: Performed By: #### 5 0103 #### [facility] [address] [facility] [place] [address], [facility] MCH (RBC) [Entitic mass] 27.4 pg Normal 27.0-33.0 [facility] Comment on above: Performed By: #### 5 3 #### [facility] [address] [place] [address], [facility] MCHC (RBC) [Mass/Vol] 32.8 g/dL Normal 32.0-35.0 [facility] Comment on above: Performed By: #### 5 0103 #### [facility] [address] [facility] [place] [address], [facility] MCV (RBC) [Entitic vol] 83.5 fL Normal 82.0-98.0 [facility] Comment on above: Performed By: #### 5 0103 #### [facility] [address] [place] [address], [facility] Monocytes (Bld) [#/Vol] 0.5 10*3/uL Normal 0.1-1.0 [facility] Comment on above: Performed By: #### 5 3 #### [facility] [address] [facility] [place] [address], [facility] MONOS 5.0 % Normal 5.0-12.0 [facility] Comment on above: Performed By: #### 5 0103 #### [facility] [address] [place] [address], [facility] Neutrophils/100 WBC (Bld) 65.9 % Normal 40.0-72.0 [facility] Comment on above: Performed By: #### 5 0103 #### [facility] [address] [facility] [place] [address], [facility] Nucleated RBC/100 WBC (Bld) [Ratio] 0 % Normal 0-0 [facility] Comment on above: Performed By: #### 5 0103 #### [facility] [address] [facility] [place] [address], [facility] PLAT CNT 290 10*3/uL Normal 150-400 [facility] Comment on above: Performed By: #### 5 0103 #### [facility] [address] [facility] [place] [address], [facility] RBC (Bld) [#/Vol] 4.86 10*6/uL Normal 3.80-5.00 [facility] Comment on above: Performed By: #### 5 0103 #### [facility] [address] [place] [address], [facility] WBC (Bld) [#/Vol] 9.68 10*3/uL Normal 4.00-10.60 [facility] Comment on above: Performed By: #### 5 0103 #### [facility] [address] [place] [address], [facility] KNEE RIGHT 1 OR 2 VWSon 06-05 KNEE RIGHT 1 OR 2 VWS [facility] Department of Radiology [address] [place] [id number] ======== Patient Name: MICHELLE BE : 1960 Sex: F Age: Race: White Pt. 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 Transcribed by: [email or web address], User Resident: Electronically Signed by: DEBRA DEL CID @ 06/30/2018 11:52 AM Normal [facility] Comment on above: Order Comment: , Vie ws (X-RAY, KNEE): Radiologic Protocol , Weight Bearing?: N , With or Without Brace/Cast/Collar: With , Views (X-RAY, KNEE): Radiologic Protocol , Weight Bearing?: N , With or Without Brace/Cast/Collar: With , , , Ordering Provider - AHSAN BINGHAM PA-C , PROTHROMBIN TIMEon 9 INR Coag (PPP) [Relative time] 0.98 {INR} Normal 0.91-1.16 [facility] Comment on above: Result [...] RANGE. CHEST 1995;108:231S-246S. Performed By: #### 5 [id number], [id number] #### [facility] [address] [facility] [address], [facility] PT Coag (PPP) [Time] 13.0 s Normal 12.3-14.8 [facility] Comment on above: Result Comment: ALL RESULTS MUST BE INTERPRETED WITH RESPECT TO BLOOD DRAWING ARTIFACT OR DILUTION ERROR OF ANTICOAGULANT AT THE TIME OF SAMPLING. Performed By: #### 5 [id number], [id number] #### [facility] [address] [facility] [place] [address], [facility] KNEE RIGHT 3 Son 9 KNEE RIGHT 3 S [facility] Department of Radiology [address] [place] [address] ======== Patient Name: MICHELLE BE : 1960 Sex: F Age: Race: White Pt. Location: Patient Status: O Ordered Date: 06/15/2018 1:35:00 PM Completed Date: 06/15/2018 01:34 PM Requesting Provider: AMPARO ZHANG Attending Provider: AMPAOR ZHANG Report Copy To: ADELAIDA CARRION Signs & Symptoms: M17.11 Unilateral primary osteoarthritis, right knee I10 History: [place] Comments: , Weight Bearing?: Y , Weight [...] effusion Electronically signed by:Anup Ellison. Transcribed by: [email or web address], User Resident: Electronically Signed by: ANUP ELLISON @ 06/15/2018 03:50 PM Normal [facility] Comment on above: Order Comment: , Isaiah ght Bearing?: Y , Weight Bearing?: Y , , , Ordering Mariela ZHANG PA-C , Vital Signs Date Time Vital Sign Value Performing Clinician Facility 08-16-2024 11:25-0400 Body mass index (BMI) [Ratio] 48.23 kg/m2 Adelaida Carrion [employer] Work Phone: [facility] 08-16-2024 11:25-040 Body temperature 98.49 [degF] Adelaida Carrion [employer] Work Phone: [facility] 08-16-2024 11:25-0400 Body weight 127.46 kg Adelaida Carrion [employer] Work Phone: [facility] 08-16-2024 11:25-0400 Diastolic blood pressure 82 mm[Hg] Adelaida Carrion [employer] Work Phone: [facility] 08-16-2024 11:25-0400 Heart rate 67 /min Adelaida Aichholz [employer] Work Phone: [facility] 08-16-2024 11:25-0400 Respiratory rate 18 /min Adelaida Aichholz [employer] Work Phone: [facility] 08-16-2024 11:25-0400 SaO2% (BldA) [Mass fraction] 97 % Adelaida Aichholz [employer] Work Phone: [facility] 08-16-2024 11:25-0400 Systolic blood pressure 120 mm[Hg] Adelaida Aichholz [employer] Work Phone: [facility] 07-27-2024 11:16-0400 Body mass index (BMI) [Ratio] 50.67 kg/m2 Adelaida Aichholz [employer] Work Phone: [facility] 07-27-2024 11:16-0400 Body temperature 98.8 [degF] Adelaida Aichholz [employer] Work Phone: [facility] 07-27-2024 11:16-0400 Body weight 133.9 kg Adelaida Aichholz [employer] Work Phone: [facility] 07-27-2024 11:16-0400 Diastolic blood pressure 86 mm[Hg] Adelaida Aichholz [employer] Work Phone: [facility] 07-27-2024 11:16-0400 Heart rate 82 /min Adelaida Aichholz [employer] Work Phone: [facility] 07-27-2024 11:16-0400 Respiratory rate 24 /min Adelaida Aichholz [employer] Work Phone: [facility] 07-27-2024 11:16-0400 SaO2% (BldA) [Mass fraction] 97 % Adelaida Aichholz [employer] Work Phone: [facility] 07-27-2024 11:16-0400 Systolic blood pressure 124 mm[Hg] Adelaida Aichholz [employer] Work Phone: [facility] 07-26-2024 10:48-0400 Body height 162.6 cm Juany Lowe PA Work Phone: [facility] 07-26-2024 10:48-0400 Body mass index (BMI) [Ratio] 50.98 kg/m2 Juany Lowe PA Work Phone: [facility] 07-26-2024 10:48-0400 Body weight 134.72 kg Juany Lowe PA Work Phone: [facility] 07-26-2024 10:48-0400 Diastolic blood pressure 84 mm[Hg] Juany Lowe PA Work Phone: [facility] 07-26-2024 10:48-0400 Systolic blood pressure 126 mm[Hg] Juany Lowe PA Work Phone: [facility] 05-24-2024 08:19-0500 Body height 162.6 cm Juany Lowe PA Work Phone: [facility] 05-24-2024 08:19-0500 Body mass index (BMI) [Ratio] 50.29 kg/m2 Juany Lowe PA Work Phone: [facility] 05-24-2024 08:19-0500 Body weight 132.9 kg Juany Lowe PA Work Phone: [facility] 05-24-2024 08:19-0500 Diastolic blood pressure 72 mm[Hg] Juany Lowe PA Work Phone: [facility] 05-24-2024 08:19-0500 Heart rate 62 /min Juany Lowe PA Work Phone: [facility] 05-24-2024 08:19-0500 Respiratory rate 16 /min Juany Lowe PA Work Phone: [facility] 05-24-2024 08:19-0500 SaO2% (BldA) [Mass fraction] 100 % Juany Lowe PA Work Phone: [facility] 05-24-2024 08:19-0500 Systolic blood pressure 110 mm[Hg] Juany Leggett PA Work Phone: [facility] 05-12-2024 10:04-0500 Body height 162.6 cm Adelaida Hejosue [employer] Work Phone: [facility] 05-12-2024 10:04-0500 Body mass index (BMI) [Ratio] 49.16 kg/m2 Adelaida Kelsiez [employer] Work Phone: [facility] 05-12-2024 10:04-0500 Body temperature 98.49 [degF] Adelaida Sheyla [employer] Work Phone: [facility] 05-12-2024 10:04-0500 Body weight 129.91 kg Adelaida Sheyla [employer] Work Phone: [facility] 05-12-2024 10:04-0500 Diastolic blood pressure 78 mm[Hg] Adelaida Kelsiez [employer] Work Phone: [facility] 05-12-2024 10:04-0500 Heart rate 80 /min Adelaidamonse Hebostonz [employer] Work Phone: [facility] 05-12-2024 10:04-0500 Respiratory rate 20 /min Adelaidamonse Hejosue [employer] Work Phone: [facility] 05-12-2024 10:04-0500 SaO2% (BldA) [Mass fraction] 98 % Adelaida Sheyla [employer] Work Phone: [facility] 05-12-2024 10:04-0500 Systolic blood pressure 118 mm[Hg] Adelaida Kelsiez [employer] Work Phone: [facility] 03-16-2024 09:53-0500 Body height 162.6 cm Adelaida Sheyla [employer] Work Phone: [facility] 03-16-2024 09:53-0500 Body mass index (BMI) [Ratio] 48.41 kg/m2 Adelaida Kelsiez [employer] Work Phone: [facility] 03-16-2024 09:53-0500 Body temperature 98.01 [degF] Adelaida Carrion [employer] Work Phone: [facility] 03-16-2024 09:53-0500 Body weight 127.91 kg Adelaida Carrion [employer] Work Phone: [facility] 03-16-2024 09:53-0500 Diastolic blood pressure 80 mm[Hg] Adelaida Carrion [employer] Work Phone: [facility] 03-16-2024 09:53-0500 Heart rate 79 /min Adelaida Iglesiasz [employer] Work Phone: [facility] 03-16-2024 09:53-0500 Respiratory rate 18 /min Adelaida Carrion [employer] Work Phone: [facility] 03-16-2024 09:53-0500 SaO2% (BldA) [Mass fraction] 98 % Adelaida Carrion [employer] Work Phone: [facility] 03-16-2024 09:53-0500 Systolic blood pressure 120 mm[Hg] Adelaida Carrion [employer] Work Phone: [facility] 03-10-2024 15:20-0500 Body height 162.6 cm Rachel Mitchell PA Work Phone: [facility] 03-10-2024 15:20-0500 Body mass index (BMI) [Ratio] 48.41 kg/m2 Rachel Mitchell PA Work Phone: [facility] 03-10-2024 15:20-0500 Body weight 127.91 kg Rachel Mitchell PA Work Phone: [facility] 03-10-2024 15:20-0500 Diastolic blood pressure 68 mm[Hg] Rachel Mitchell PA Work Phone: [facility] 03-10-2024 15:20-0500 Heart rate 74 /min Rachel Mitchell PA Work Phone: [facility] 03-10-2024 15:20-0500 Respiratory rate 16 /min Rachel Mitchell PA Work Phone: [facility] 03-10-2024 15:20-0500 SaO2% (BldA) [Mass fraction] 98 % Rachel Mitchell PA Work Phone: [facility] 03-10-2024 15:20-0500 Systolic blood pressure 102 mm[Hg] Rachel Mitchell PA Work Phone: [facility] 03-01-2024 12:48-0500 Body height 162.6 cm Juany Lowe PA Work Phone: [facility] 03-01-2024 12:48-0500 Body mass index (BMI) [Ratio] 48.92 kg/m2 Juany Lowe PA Work Phone: [facility] 03-01-2024 12:48-0500 Body weight 129.28 kg Juany Lowe PA Work Phone: [facility] 03-01-2024 12:48-0500 Diastolic blood pressure 88 mm[Hg] Juany Lowe PA Work Phone: [facility] 03-01-2024 12:48-0500 Systolic blood pressure 140 mm[Hg] Juany Lowe PA Work Phone: [facility] 02-16-2024 11:18-0500 Body height 162.6 cm Adelaida Carrion [employer] Work Phone: [facility] 02-16-2024 11:18-0500 Body mass index (BMI) [Ratio] 50.77 kg/m2 Adelaida Sheyla [employer] Work Phone: [facility] 02-16-2024 11:18-0500 Body temperature 98.49 [degF] Adelaida Carrion [employer] Work Phone: [facility] 02-16-2024 11:18-0500 Body weight 134.17 kg Adelaida Sheyla [employer] Work Phone: [facility] 02-16-2024 11:18-0500 Diastolic blood pressure 82 mm[Hg] Adelaida Sheyla [employer] Work Phone: [facility] 02-16-2024 11:18-0500 Heart rate 69 /min Adelaida Aichholz [employer] Work Phone: [facility] 02-16-2024 11:18-0500 Respiratory rate 20 /min Adelaida Aichholz [employer] Work Phone: [facility] 02-16-2024 11:18-0500 SaO2% (BldA) [Mass fraction] 98 % Adelaida Aichholz [employer] Work Phone: [facility] 02-16-2024 11:18-0500 Systolic blood pressure 122 mm[Hg] Adelaida Aichholz [employer] Work Phone: [facility] 01-28-2024 13:46-0400 Body height 162.6 cm Adelaida Aichholz [employer] Work Phone: [facility] 01-28-2024 13:46-0400 Body mass index (BMI) [Ratio] 48.99 kg/m2 Adelaida Aichholz [employer] Work Phone: [facility] 01-28-2024 13:46-0400 Body temperature 98.71 [degF] Adelaida Aichholz [employer] Work Phone: [facility] 01-28-2024 13:46-0400 Body weight 129.46 kg Adelaida Aichholz [employer] Work Phone: [facility] 01-28-2024 13:46-0400 Diastolic blood pressure 78 mm[Hg] Adelaida Aichholz [employer] Work Phone: [facility] 01-28-2024 13:46-0400 Heart rate 81 /min Adelaida Aichholz [employer] Work Phone: [facility] 01-28-2024 13:46-0400 Respiratory rate 18 /min Adelaida Aichholz [employer] Work Phone: [facility] 01-28-2024 13:46-0400 SaO2% (BldA) [Mass fraction] 99 % Adelaida Aichholz [employer] Work Phone: [facility] 01-28-2024 13:46-0400 Systolic blood pressure 110 mm[Hg] Adelaida Iglesiasz [employer] Work Phone: [facility] 01-04-2024 09:39-0400 Body height 162.6 cm Adelaida Iglesiasz [employer] Work Phone: [facility] 01-04-2024 09:39-0400 Body mass index (BMI) [Ratio] 48.75 kg/m2 Adelaidamonse Iglesiasz [employer] Work Phone: [facility] 01-04-2024 09:39-0400 Body temperature 97.81 [degF] Adelaida Sousakushz [employer] Work Phone: [facility] 01-04-2024 09:39-0400 Body weight 128.82 kg Adelaida Iglesiasz [employer] Work Phone: [facility] 01-04-2024 09:39-0400 Diastolic blood pressure 78 mm[Hg] Adelaida Iglesiasz [employer] Work Phone: [facility] 01-04-2024 09:39-0400 Heart rate 67 /min Adelaida Iglesiasz [employer] Work Phone: [facility] 01-04-2024 09:39-0400 Respiratory rate 19 /min Adelaidamonse Iglesiasz [employer] Work Phone: [facility] 01-04-2024 09:39-0400 SaO2% (BldA) [Mass fraction] 99 % Adelaidamonse Iglesiasz [employer] Work Phone: [facility] 01-04-2024 09:39-0400 Systolic blood pressure 116 mm[Hg] Adelaida Merryholz [employer] Work Phone: [facility] 12-09-2023 10:14-0400 Body height 162.6 cm Juany Caballero [employer] Work Phone: [facility] 12-09-2023 10:14-0400 Body mass index (BMI) [Ratio] 48.92 kg/m2 Juayn Escalanter [employer] Work Phone: [facility] 12-09-2023 10:14-0400 Body weight 129.28 kg Juany Escalanter [employer] Work Phone: [facility] 12-09-2023 10:14-0400 Diastolic blood pressure 78 mm[Hg] Juany Escalanter [employer] Work Phone: [facility] 12-09-2023 10:14-0400 SaO2% (BldA) [Mass fraction] 97 % Juany Escalanter [employer] Work Phone: [facility] 12-09-2023 10:14-0400 Systolic blood pressure 122 mm[Hg] Juany Escalanter [employer] Work Phone: [facility] 12-08-2023 15:24-0400 Body height 162.6 cm Sonam Clevelandnagel [employer] Work Phone: [facility] 12-08-2023 15:24-0400 Body mass index (BMI) [Ratio] 48.92 kg/m2 Sonam Clevelandnagel [employer] Work Phone: [facility] 12-08-2023 15:24-0400 Body weight 129.28 kg Sonam Clevelandnagel [employer] Work Phone: [facility] 12-08-2023 15:24-0400 Diastolic blood pressure 77 mm[Hg] Sonam Windnagel [employer] Work Phone: [facility] 12-08-2023 15:24-0400 Heart rate 72 /min Sonam Windnagel [employer] Work Phone: [facility] 12-08-2023 15:24-0400 Systolic blood pressure 134 mm[Hg] Sonam Windnagel [employer] Work Phone: [facility] 05-18-2023 16:30-0500 Body height 162.6 cm Adelaidamonse Carrion [employer] Work Phone: [facility] 05-18-2023 16:30-0500 Body mass index (BMI) [Ratio] 47.89 kg/m2 Adelaida Kelsiez [employer] Work Phone: [facility] 05-18-2023 16:30-0500 Body temperature 97.3 [degF] Adelaida Aichholz [employer] Work Phone: [facility] 05-18-2023 16:30-0500 Body weight 126.55 kg Adelaida Aichholz [employer] Work Phone: [facility] 05-18-2023 16:30-0500 Diastolic blood pressure 80 mm[Hg] Adelaida Aichholz [employer] Work Phone: [facility] 05-18-2023 16:30-0500 Heart rate 76 /min Adelaida Aichholz [employer] Work Phone: [facility] 05-18-2023 16:30-0500 Respiratory rate 19 /min Adelaida Aichholz [employer] Work Phone: [facility] 05-18-2023 16:30-0500 SaO2% (BldA) [Mass fraction] 97 % Adelaida Aichholz [employer] Work Phone: [facility] 05-18-2023 16:30-0500 Systolic blood pressure 134 mm[Hg] Adelaida Aichholz [employer] Work Phone: [facility] 03-23-2023 12:10-0500 Diastolic blood pressure 98 mm[Hg] Adelaida Aichholz Work Phone: [facility] 03-23-2023 12:10-0500 Heart rate 76 /min Adelaida Aichholz Work Phone: [facility] 03-23-2023 12:10-0500 Respiratory rate 18 /min Adelaida Aichholz Work Phone: [facility] 03-23-2023 12:10-0500 SaO2% (BldA) [Mass fraction] 99 % Adelaida Aichholz Work Phone: [facility] 03-23-2023 12:10-0500 Systolic blood pressure 162 mm[Hg] Adelaida Sousaholz Work Phone: [facility] 03-23-2023 10:53-0500 Body height 162.56 cm Adeliada Yinghholz Work Phone: [facility] 03-23-2023 10:53-0500 Body weight 125.64 kg Adelaida Yinghholz Work Phone: [facility] 12-19-2022 14:55-0400 Body height 162.56 cm Rosemary Vernonmond Other [facility] [facility] [employer] Other 12-19-2022 14:55-0400 Body mass index (BMI) [Ratio] 47.85 kg/m2 Rosemary Vernonmond Other [employer] Other 12-19-2022 14:55-0400 Body temperature 97.8 [degF] Rsoemary Vernonmond Other [employer] Other 12-19-2022 14:55-0400 Body weight 126.46 kg Rosemary Vernonmond Other [employer] Other 12-19-2022 14:55-0400 Respiratory rate 20 /min Rosemary Vernonmond Other [employer] Other 12-19-2022 14:55-0400 SaO2% (BldA) [Mass fraction] 95 % Rosemary Kirkland Other [employer] Other 11-20-2022 13:12-0400 Body temperature 97.7 [degF] Adelaida Yinghholz Work Phone: [facility] 11-20-2022 13:12-0400 SaO2% (BldA) [Mass fraction] 96 % Adelaida Yinghholz Work Phone: [facility] 11-20-2022 07:44-0400 Diastolic blood pressure 90 mm[Hg] Adelaida Aichholz Work Phone: [facility] 11-20-2022 07:44-0400 Heart rate 103 /min Adelaida Aichholz Work Phone: [facility] 11-20-2022 07:44-0400 Systolic blood pressure 152 mm[Hg] Adelaida Aichholz Work Phone: [facility] 11-19-2022 20:00-0400 Respiratory rate 18 /min Adelaida Aichholz Work Phone: [facility] 11-18-2022 15:18-0400 Body height 162.56 cm Adelaida Aichholz Work Phone: [facility] 11-17-2022 09:00-0400 Body weight 122.92 kg Adelaida Aichholz Work Phone: [facility] Encounters Encounter Date Encounter Type Care Provider Facility Start: 10-04-2024 ambulatory Eduardo Monk Facility:[facility] Start: 09-29-2024 End: 09-29-2024 Clinisync Result Encounter [...] 09-19-2024 End: 09-19-2024 ambulatory Syeda Mancuso MD Facility:[facility] Start: 08-16-2024 End: 08-16-2024 Bamboo flowsheet Adelaida Carrion [employer] Work Phone: [facility] Start: 08-16-2024 End: 08-16-2024 Bamboo flowsheet Adelaida Carrion [employer] Work Phone: [facility] Start: 08-16-2024 End: 08-16-2024 Office outpatient visit 15 minutes Adelaida Carrion [employer] Work Phone: [facility] Comment on above: Primary hypertension (CMS/HCC) (Primary Dx); Bronchitis; Bilateral lower extremity edema; Morbid (severe) obesity due to excess calories (CMS/HCC); Pre-diabetes; Allergic rhinitis, unspecified seasonality, unspecified trigger; Encounter for screening mammogram for malignant neoplasm of breast; Former cigarette smoker Start: 08-16-2024 End: 08-16-2024 ambulatory ADELAIDA SHEYLA Not Available Start: 08-08-2024 End: 08-08-2024 ambulatory Syeda Mancuso MD Facility:[facility] Start: 07-27-2024 End: 07-27-2024 Bamboo flowsheet Adelaida Carrion [employer] Work Phone: [facility] Start: 07-27-2024 End: 07-27-2024 Bamboo flowsheet Adelaida Carrion [employer] Work Phone: [facility] Start: 07-27-2024 End: 07-27-2024 Office outpatient visit 15 minutes Adelaida Carrion MACHINE STRAP BUCKLER Work Phone: [facility] Comment on above: Primary hypertension (CMS/HCC) (Primary Dx); Morbid (severe) obesity due to excess calories (CMS/HCC); Essential (primary) hypertension (CMS/HCC); Allergic rhinitis, unspecified; Gastro-esophageal reflux disease without esophagitis; Bilateral lower extremity edema; Bronchitis Start: 07-27-2024 End: 07-27-2024 ambulatory ADELAIDA AICHHOLZ Not Available Start: 07-26-2024 End: 07-26-2024 Bamboo flowsheet Juany Leggett PA [facility] Start: 07-26-2024 End: 07-26-2024 Bamboo flowsheet Juany [...] Start: 06-14-2024 End: 06-14-2024 Refill Adelaida Carrion MACHINE STRAP BUCKLER [facility] Comment on above: URI, acute (Primary [...] 05-12-2024 End: 05-12-2024 Bamboo flowsheet Adelaida Sousarhonda MACHINE STRAP BUCKLER Work Phone: [facility] Start: 05-12-2024 End: 05-12-2024 Bamboo flowsheet Adelaida Sousarhonda MACHINE STRAP BUCKLER Work Phone: [facility] [facility] [facility] Start: 05-12-2024 End: 05-12-2024 Office outpatient visit 25 minutes Adelaida Yingmarquesrhonda MACHINE STRAP BUCKLER Work Phone: [facility] [facility] [facility] Comment on above: Primary hypertension [...] 05-09-2024 End: 05-09-2024 ambulatory [facility] Start: 04-12-2024 End: 04-12-2024 Refill Juany REDDY Work Phone: [facility] [address] Comment on above: Transient alteration of awareness (Primary Dx); Restless leg Start: 04-07-2024 End: 04-07-2024 Patient encounter procedure David Foster PhD Work Phone: [facility] Comment on above: Metabolic encephalop [...] 03-16-2024 End: 03-16-2024 Bamboo flowsheet Adelaida Yingmarquesrhonda MACHINE STRAP BUCKLER Work Phone: [facility] Start: 03-16-2024 End: 03-16-2024 Bamboo flowsheet Adelaida Yingmarquesrhonda MACHINE STRAP BUCKLER Work Phone: [facility] Start: 03-16-2024 End: 03-16-2024 Office outpatient visit 25 minutes Adelaida Sheyla MACHINE STRAP BUCKLER Work Phone: [facility] Comment on above: Metabolic encephalop athy (Primary Dx); OSMANY (obstructive sleep apnea); Morbid obesity (CMS/HCC); Bilateral lower extremity edema; Tobacco dependence; Bipolar disorder with severe depression (CMS/HCC); At risk for polypharmacy; Anxiety; Primary hypertension (CMS/HCC); Right bundle branch block (RBBB) determined by electrocardiography Start: 03-16-2024 End: 03-16-2024 ambulatory ADELAIDA SHEYLA Not Available Start: 03-15-2024 End: 03-16-2024 Telephone encounter David Norman MA [facility] Start: 03-14-2024 End: 03-14-2024 Bamboo flowsheet David Foster PhD Work Phone: [facility] Start: 03-14-2024 End: 03-14-2024 Bamboo flowsheet David Foster PhD Work Phone: [facility] Start: 03-14-2024 End: 03-14-2024 ambulatory DAVID FOSTER Not Available Start: 03-14-2024 End: 03-14-2024 Patient encounter procedure David Foster PhD Work Phone: [facility] Comment on above: Altered mental statu s, unspecified altered mental status type (Primary Dx); Memory change; Concentration deficit; 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 (CMS/HCC); PTSD (post-traumatic stress disorder) ([facility]); Bipolar affective disorder, remission status unspecified ([facility]); Family history of dementia Start: [...] Evaluation and management of inpatient Adelaida Carrion Facility:[facility] Start: 03-02-2024 End: 03-04-2024 Clinisync Result Encounter Generic External Data Provider [facility] External Department Unsolicited Start: 03-02-2024 End: 03-04-2024 Clinisync Result Encounter Generic External Data Provider [facility] External Department Unsolicited Start: 03-02-2024 End: 03-02-2024 Refill Adelaida Sheyla MACHINE STRAP BUCKLER Work Phone: [facility] Comment on above: Yeast infection of t he skin Start: 03-01-2024 End: 03-01-2024 ambulatory JUANY LEGGETT Not Available Start: 03-01-2024 End: 03-01-2024 Office outpatient visit 25 minutes Juany REDDY Work Phone: [facility] [place] [address] Comment on above: Metabolic encephalop athy (Primary Dx); OSMANY (obstructive sleep apnea); Restless leg; 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 (CMS/HCC); Degeneration of intervertebral disc of lumbar region with discogenic back pain and lower extremity pain; Memory change Start: 02-28-2024 End: 02-29-2024 Refill Adelaida Carrion MACHINE STRAP BUCKLER Work Phone: [facility] Comment on above: Allergic rhinitis, u nspecified Start: 02-24-2024 End: 02-24-2024 Refill Adelaida Sheyla MACHINE STRAP BUCKLER Work Phone: [facility] Comment on above: Essential (primary) hypertension (CMS/HCC); Allergic rhinitis, unspecified Start: 02-16-2024 End: 02-16-2024 Bamboo flowsheet Adelaida Sheyla MACHINE STRAP BUCKLER Work Phone: [facility] Start: 02-16-2024 End: 02-23-2024 Clinisync Result Encounter Adelaida Sheyla MACHINE STRAP BUCKLER Work Phone: [facility] External Department Unsolicited Start: 02-16-2024 End: 02-23-2024 Clinisync Result Encounter Adelaida Sheyla MACHINE STRAP BUCKLER Work Phone: [facility] External Department Unsolicited Start: 02-16-2024 End: 02-16-2024 Patient encounter procedure Adelaida Sheyla MACHINE STRAP BUCKLER Work Phone: [facility] Start: 02-16-2024 End: 02-16-2024 Periodic preventive med est patient 40-64yrs Adelaida Carrion MACHINE STRAP BUCKLER Work Phone: [facility] Comment on above: Well woman exam with routine gynecological exam (Primary Dx); Morbid obesity (CMS/HCC) Start: 02-16-2024 End: 02-16-2024 ambulatory ADELAIDA SHEYLA Not Available Start: 02-04-2024 End: 02-04-2024 Refill Sonam Brown MACHINE STRAP BUCKLER Work Phone: [facility] [place] [address] Comment on above: Restless leg Start: 01-28-2024 End: 01-28-2024 Bamboo flowsheet Adelaida Carrion MACHINE STRAP BUCKLER Work Phone: [facility] Start: 01-28-2024 End: 01-28-2024 Bamboo flowsheet Adelaida Carrion MACHINE STRAP BUCKLER Work Phone: [facility] Start: 01-28-2024 End: 01-28-2024 Office outpatient visit 15 minutes Adelaida Carrion MACHINE STRAP BUCKLER Work Phone: [facility] Comment on above: Acute cystitis witho ut hematuria (Primary Dx); Tobacco dependence; Needs flu shot; Morbid obesity (CMS/HCC) Start: 01-28-2024 End: 01-28-2024 ambulatory ADELAIDA AICHHOLZ Not Available Start: 01-25-2024 End: 01-25-2024 ambulatory Syeda Mancuso MD Facility:[facility] Start: 01-21-2024 End: 01-25-2024 Clinisync Result Encounter Generic External Data Provider [facility] External Department Unsolicited Start: 01-21-2024 End: 01-25-2024 Clinisync Result Encounter Generic External Data Provider [facility] External Department Unsolicited Start: 01-05-2024 End: 01-05-2024 Clinisync Result Encounter Adelaida Carrion MACHINE STRAP BUCKLER Work Phone: [facility] External Department Unsolicited Start: 01-05-2024 End: 01-05-2024 Clinisync Result Encounter Adelaida Carrion MACHINE STRAP BUCKLER Work Phone: [facility] External Department Unsolicited Start: 01-04-2024 End: 01-04-2024 Bamboo flowsheet Adelaida Carrion MACHINE STRAP BUCKLER Work Phone: [facility] Start: 01-04-2024 End: 01-04-2024 Bamboo flowsheet Adelaida Carrion MACHINE STRAP BUCKLER Work Phone: [facility] Start: 01-04-2024 End: 01-04-2024 Office outpatient visit 25 minutes Adelaida Carrion MACHINE STRAP BUCKLER Work Phone: [facility] Comment on above: Bilateral lower extr emity edema (Primary Dx); Essential (primary) hypertension (CMS/HCC); Allergic rhinitis, unspecified; OSMANY (obstructive sleep apnea); Primary hypertension (CMS/HCC); Morbid obesity (CMS/HCC) Start: 01-04-2024 End: 01-04-2024 ambulatory ADELAIDA AICHHOLZ Not Available Start: 12-30-2023 End: 12-30-2023 Refill Adelaidamonse Carrion MACHINE STRAP BUCKLER Work Phone: [facility] Comment on above: Lower extremity elis a Start: 12-09-2023 End: 12-09-2023 Office outpatient visit 25 minutes Juany Caballero MACHINE STRAP BUCKLER Work Phone: [facility] [employer] [facility] Comment on above: OSMANY (obstructive sle ep apnea) (Primary Dx); Restless leg Start: 12-09-2023 End: 12-09-2023 ambulatory JUANY WINIFREDR Not Available Start: 12-08-2023 End: 12-08-2023 ambulatory SONAM C WINDNAGEL Not Available Start: 12-08-2023 End: 12-08-2023 Office outpatient visit 25 minutes Sonam C Windnagel MACHINE STRAP BUCKLER Work Phone: [facility] [place] [address] Comment on above: 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CMS /HCC) (Primary Dx); Restless leg; Metabolic encephalopathy Start: 12-08-2023 End: 12-08-2023 Bamboo flowsheet Sonam C Windnagel MACHINE STRAP BUCKLER Work Phone: [facility] [employer] [facility] Start: 12-08-2023 End: 12-08-2023 Bamboo flowsheet Sonam C Windnagel MACHINE STRAP BUCKLER Work Phone: [facility] [employer] [facility] Start: 11-27-2023 End: 11-27-2023 Refill Adelaida Aichholz MACHINE STRAP BUCKLER Work Phone: [facility] Comment on above: Yeast infection of t he skin (Primary Dx) Start: 10-21-2023 End: 10-21-2023 ambulatory ADELAIDA AICHHOLZ Not Available Start: 10-14-2023 End: 10-14-2023 ambulatory SONAM C WINDNAGEL Not Available Start: 10-05-2023 End: 10-05-2023 ambulatory ADELAIDA AICHHOLZ Not Available Start: 09-21-2023 End: 09-21-2023 ambulatory ADELAIDA AICHHOLZ Not Available Start: 05-21-2023 Refill Adelaida Aichholz MACHINE STRAP BUCKLER Work Phone: [facility] Comment on above: Acute cystitis with hematuria (Primary Dx) Start: 05-18-2023 End: 05-18-2023 Office outpatient visit 25 minutes Adelaida Carrion NP Work Phone: [facility] Comment on above: Encounter for annual wellness visit (AWV) in Medicare patient (Primary Dx); OSMANY (obstructive sleep apnea); Chronic pain disorder; Gastroesophageal reflux disease, unspecified whether esophagitis present; Overactive bladder; Lower extremity edema; Pre-diabetes; Morbid obesity ([facility]); Yeast infection of the skin; Tobacco dependence; Mood disorder ([facility]); Primary hypertension ([facility]); Left hip pain; Open wound of anterior abdominal wall, initial encounter Start: 05-18-2023 Bamboo flowsheet Adelaida Carrion NP Work Phone: [facility] Start: 05-18-2023 Bamboo flowsheet Adelaida Carrion NP Work Phone: [facility] Start: 05-18-2023 End: 05-18-2023 Patient encounter procedure Adelaida Carrion NP Work Phone: [facility] Start: 03-23-2023 End: 03-23-2023 Admission to same day surgery center Adelaida Carrion Work Phone: [facility] Work Phone: Start: 03-23-2023 End: 03-23-2023 ambulatory Adelaida Carrion Work Phone: [facility] Work Phone: Start: 02-12-2023 End: 02-12-2023 ambulatory Jace Graham Other [employer] Other Start: 02-12-2023 Telephone encounter Jace Haney [employer] Start: 12-19-2022 End: 12-19-2022 ambulatory Rosemary Kirkland Other [employer] Other Start: 12-19-2022 Office outpatient ne w 10 minutes [facility] Start: 11-17-2022 End: 11-20-2022 Evaluation and management of inpatient Adelaida Carrion Work Phone: [facility] Work Phone: Start: 09-04-2022 ambulatory ARIAN Banegas Facili ty:H1 Start: 08-26-2022 ambulatory NARENDRANATH LAKSHMIPATHY . Facility:H1 Start: 08-08-2022 End: 08-09-2022 ambulatory TANNING CONSULTANT ADELAIDA SHEYLA Facility:H1 Start: 07-25-2022 End: 07-26-2022 ambulatory TANNING CONSULTANT ADELAIDA SHEYLA Facility:H1 Start: 07-15-2022 End: 07-15-2022 ambulatory NARENDRANATH LAKSHMIPATHY . Facility:H1 Start: 07-11-2022 ambulatory NARENDRANATH LAKSHMIPATHY . Facility:H1 Start: 06-26-2022 End: 06-27-[address] FINA NIXON . Facility:H1 Start: 06-11-2022 ambulatory TANNING CONSULTANT ADELAIDA CARRION Facil ity:H1 Start: 05-21-2022 End: 06-11-2022 ambulatory TANNING CONSULTANT ADELAIDAMonse CARRION Facility:H1 Start: 05-08-2022 End: 05-09-2022 ambulatory TANNING CONSULTANT ADELAIDA CARRION Facility:H1 Start: 04-28-2022 End: 04-28-2022 ambulatory TANNING CONSULTANT ADELAIDA CARRION Facility:H1 Start: 04-03-2022 End: 04-04-[address] FINA NIXON . Facility:H1 Start: 03-19-2022 End: 03-20-2022 ambulatory TANNING CONSULTANT ADELAIDA CARRION Facility:H1 Start: 02-20-2022 End: 02-20-2022 ambulatory GILMER NEVES Facility:H1 Start: 01-10-2022 End: 02-12-2022 ambulatory BRIDGETTE MACEDO Facility:H1 Start: 01-02-2022 End: 01-03-[address] FINA NIXON . Facility:H1 Start: 01-01-2022 End: 01-02-2022 ambulatory BRIDGETTE MACEDO Facility:H1 Start: 12-16-2021 End: 12-16-2021 ambulatory TANNING CONSULTANT ADELAIDA YINGMarquesRHONDA Facility:H1 Start: 11-21-2021 End: 11-22-[address] DOCTOR BERGERON Facility:H1 Start: 10-03-2021 End: 10-04-[address] FINA NIXON . Facility:H1 Start: 09-19-[address] FINA NIXON . Faci lity:H1 Start: 09-12-2021 End: 09-12-2021 ambulatory LIVIER WITT KELSIENena Facility:H1 Start: 08-20-2021 End: 08-20-[address] FINA NIXON . Facility:H1 Start: 07-02-2018 End: 07-03-2018 Patient encounter procedure SUKI ESCALANTE Facility:[facility] Procedures Date Procedure Procedure Detail Performing Clinician Start: 09-29-2024 Radex hips bilateral with pelvis 2 views Generic External Data Provider Start: 09-26-2024 CT LUNG SCREENING LOW DOSE Adelaida Sheyla MACHINE STRAP BUCKLER Work Phone: Start: 09-26-2024 MM TOMOSYNTHESIS SCR EENING BI Adelaida Sheyla MACHINE STRAP BUCKLER Work Phone: Start: 09-26-2024 XR SHOULDER RT MIN 2V G eneric External Data Provider Start: 09-26-2024 Mammography Adelaida Jayden ramos MACHINE STRAP BUCKLER Work Phone: Start: 08-16-2024 Hemoglobin glycosylated a1c Adelaida Sheyla MACHINE STRAP BUCKLER Work Phone: Start: 03-02-2024 BLOOD CULTURE 1 Generic External Data Provider Start: 02-16-2024 IGP,APTIMA HPV,AGE GDLN Adelaida Sheyla MACHINE STRAP BUCKLER Work Phone: Start: 01-28-2024 Urnls dip stick/tabl et rgnt non-auto w/o micrscp Adelaida Sheyla MACHINE STRAP BUCKLER Work Phone: Start: 01-21-2024 MHPT CULT,URINE Generic External Data Provider Start: 01-05-2024 ALL BASIC METABOLIC PANEL Adelaidamonse Carrion MACHINE STRAP BUCKLER Work Phone: Start: 09-18-2023 Mammography Adelaida Jayden ramos MACHINE STRAP BUCKLER Work Phone: Start: 03-23-2023 Screening colonoscopy Alee no Sheyla Work Phone: Start: 03-23-2023 Colonoscopy Adelaida Jayden ramos MACHINE STRAP BUCKLER Work Phone: Start: 09-15-2022 Mammography Adelaida Merrymarques rachel MACHINE STRAP BUCKLER Work Phone: Start: 08-28-2022 Microscopic observat ion [Identifier] in Cervix by Cyto stain Adelaida Carrion MACHINE STRAP BUCKLER Work Phone: Start: 07-02-2018 ANESTH KNEE AREA SURGERY CHAPARRITA HENDRICKS Start: 07-02-2018 REMOVAL OF SUPPORT IMPLANT SUKI EBRAHEIM Start: 07-02-2018 TREAT KNEECAP FRACTURE SUKI EBRAHEIM Plan of Treatment Date Care Activity Detail Author Start: 03-23-2033 Screening for malign ant neoplasm of colon [facility] Start: 09-26-2025 Screening for malign ant neoplasm of breast Mammogram [facility] Start: 08-28-2025 Screening for malign ant neoplasm of cervix [facility] Start: 02-15-2025 Medicare Annual Well ness (AWV) Medicare Annual Wellness (AWV) [facility] Start: 11-14-2024 End: 11-14-2024 Patient encounter procedure 11/14/2024 9:40 AM EDT Office Visit [facility] [address] [place] [phone] Adelaida Carrion NP [address] [place] [address] [facility] Start: 09-22-2024 End: 09-22-2024 Patient encounter procedure 09/22/2024 11:00 AM EDT Office Visit [facility] [address] [place] [phone] Rachel Mitchell PA [address] [place] [address] [facility] Start: 06-14-2025 Screening for malign ant neoplasm of breast Mammogram [facility] Start: 08-16-2024 End: 08-16-2025 CT Chest for screening WO contrast CT lung screening low dose Imaging Routine Former cigarette smoker Expected: 08/16/2024 (Approximate), Expires: 08/16/2025 [facility] Comment on above: Expected: 08/16/2024 (Approximate), Expires: 08/16/2025 Start: 08-16-2024 End: 10-16-2025 MG Breast - bilateral Screening Bilateral screening mammogram Imaging Routine Encounter for screening mammogram for malignant neoplasm of breast Expected: 08/16/2024 (Approximate), Expires: 10/16/2025 [facility] Work Phone: Comment on above: Expected: 08/16/2024 (Approximate), Expires: 10/16/2025 Start: 08-16-2024 End: 08-16-2024 Patient encounter procedure [facility] Comment on above: Bronchitis (Primary Dx); Primary hypertension (CMS/HCC); Bilateral lower extremity edema; Morbid (severe) obesity due to excess calories (CMS/HCC); Pre-diabetes Start: 08-11-2024 End: 08-11-2024 Patient encounter procedure 08/11/2024 10:30 AM EDT Office Visit [facility] [address] [place] [phone] Adelaida Carrion NP [address] [place] [phone] [facility] Start: 07-27-2024 End: 07-27-2024 Patient encounter procedure 07/27/2024 11:30 AM EDT Office Visit [facility] [address] [place] [address] Adelaida Carrion NP [address] [place] [phone] Primary hypertension (CMS/HCC) (Primary Dx); Morbid (severe) obesity due to excess calories (CMS/HCC) [facility] Comment on above: Primary hypertension (CMS/HCC) (Primary Dx); Morbid (severe) obesity due to excess calories (CMS/HCC) Start: 07-26-2024 End: 07-26-2024 Patient encounter procedure [facility] Comment on above: Arrived Start: 06-22-2024 End: 06-22-2024 Patient encounter procedure 06/22/2024 11:20 AM EDT Office Visit [facility] [place] [facility] [address] [place] [address] Juany Leggett PA [address] [place] [address] [facility] [address] Start: 06-15-2024 End: 06-15-2024 Patient encounter procedure 06/15/2024 9:20 AM EDT Office Visit [facility] [address] [place] [phone] Adelaida Carrion NP [address] [place] [address] [facility] Start: 05-24-2024 End: 05-24-2024 Patient encounter procedure [facility] [place] [facility] Comment on above: Arrived Start: 05-18-2024 Medicare Annual Well ness (AWV) Medicare Annual Wellness (AWV) [facility] Start: 05-12-2024 End: 05-12-2024 [facility] Comment on above: Primary hypertension (CMS/HCC) (Primary Dx); Chronic kidney disease, stage 3a (HCC) (CMS/HCC); Morbid (severe) obesity due to excess calories (CMS/HCC); Body mass index (BMI) 45.0-49.9, adult (CMS/HCC); OSMANY (obstructive sleep apnea); Hemiparesis, right (CMS/HCC); Gastroesophageal reflux disease, unspecified whether esophagitis present; Metabolic encephalopathy Start: 04-07-2024 End: 04-07-2024 Patient encounter procedure 04/07/2024 12:30 PM EST Office Visit [facility] [address] [phone] [facility] Start: 04-04-2024 End: 04-04-2024 Patient encounter procedure 04/04/2024 1:20 PM EST Office Visit [facility] [address] [place] [address] Adelaida Carrion NP [address] [place] [address] [facility] Start: 03-22-2024 End: 03-22-2024 Clinical Support 03/22/2024 10:00 AM EST Clinical Support [facility] [address] [facility] [place] [address] [facility] [address] Start: 03-16-2024 End: 03-16-2024 Patient encounter procedure [facility] Comment on above: Metabolic encephalop athy (Primary Dx); OSMANY (obstructive sleep apnea); Morbid obesity (CMS/HCC); Bilateral lower extremity edema; Tobacco dependence; Bipolar disorder with severe depression (CMS/HCC); At risk for polypharmacy; Anxiety Start: 03-14-2024 End: 03-14-2024 Patient encounter procedure 03/14/2024 10:00 AM EST Office Visit [facility] [address] [phone] David Foster, PhD [address] [place], [place] [phone] [facility] Start: 03-11-2024 End: 03-11-2025 EEG 2 Hour Routine EEG 2 Hour Routine Neurology Routine Altered mental status, unspecified altered mental status type Expected: 03/11/2024 (Approximate), Expires: 03/11/2025 [facility] Work Phone: Comment on above: Expected: 03/11/2024 (Approximate), Expires: 03/11/2025 Start: 03-10-2024 End: 03-10-2024 Patient encounter procedure 03/10/2024 3:40 PM EST Office Visit [facility] [address] [place] [phone] Rachel Mitchell PA [address] [place], [place] [phone] [facility] Start: 03-01-2024 End: 03-01-2024 Patient encounter procedure 03/01/2024 12:00 PM EST Office Visit [facility] [place] [address] [place] [phone] Juany Leggett PA [address] [place], [place] [phone] [facility] [place] [facility] Start: 02-29-2024 End: 02-29-2024 Patient encounter procedure 02/29/2024 2:40 PM EST Office Visit [facility] [place] [address] [place] [address] Sonam Brown, MACHINE STRAP BUCKLER [address] [place] [address] [facility] [place] [facility] Start: 02-16-2024 End: 02-15-2025 THIN PREP TIS PAP AND HR HPV DNA THIN PREP TIS PAP AND HR HPV DNA Pathology and Cytology Routine Well woman exam with routine gynecological exam Expected: 02/16/2024 (Approximate), Expires: 02/15/2025 [facility] Work Phone: Comment on above: Expected: 02/16/2024 (Approximate), Expires: 02/15/2025 Start: 02-16-2024 End: 02-16-2024 Patient encounter procedure 02/16/2024 11:30 AM EST Procedure Visit [facility] [address] [place] [phone] Adelaida Carrion NP [address] [place] [phone] [facility] Start: 02-04-2024 Influenza vaccination Influenza Vacc ine (#1) [facility] Comment on above: Postponed from 12/05 (Patient Does Not Have Time) Start: 01-28-2024 End: 01-27-2025 URINARY TRACT INFECTION (HTRX) URINARY TRACT INFECTION (HTRX) Lab Routine Acute cystitis without hematuria Expected: 01/28/2024 (Approximate), Expires: 01/27/2025 [facility] Work Phone: Comment on above: Expected: 01/28/2024 (Approximate), Expires: 01/27/2025 Start: 01-28-2024 End: 01-28-2024 Patient encounter procedure [facility] Comment on above: Tobacco dependence ( Primary Dx) Start: 01-04-2024 End: 01-03-2025 Basic metabolic 1998 panel - Serum or Plasma Basic metabolic panel Lab Routine Bilateral lower extremity edema Expected: 01/04/2024 (Approximate), Expires: 01/03/2025 [facility] Work Phone: Comment on above: Expected: 01/04/2024 (Approximate), Expires: 01/03/2025 Start: 01-04-2024 End: 01-04-2024 Patient encounter procedure [facility] Comment on above: Essential (primary) hypertension (CMS/HCC); Allergic rhinitis, unspecified Start: 12-09-2023 End: 12-09-2023 Patient encounter procedure 12/09/2023 10:30 AM EDT Office Visit [facility] [place] [address] [place] [phone] Juany Caballero NP [address] [place], [place] [facility] [place] [address] Start: 12-08-2023 End: 12-08-2023 Patient encounter procedure 12/08/2023 3:20 PM EDT Office Visit [facility] [place] [address] [place] [address] Sonam Brown, MACHINE STRAP BUCKLER [address] [place] [address] [facility] [place] [address] Start: 09-16-2023 Screening for malign ant neoplasm of breast Mammogram [facility] Start: 08-17-2023 End: 08-17-2023 Patient encounter procedure 08/17/2023 9:20 AM EDT Office Visit [facility] [address] [place] [address] Adelaida Carrion, BRIANA [address] [place] [phone] [facility] Start: 05-22-2023 End: 05-22-2023 Patient encounter procedure 05/22/2023 8:45 AM EST Office Visit [facility] [address] [facility] [address] [place] [id number] Travon Hines, MAUREEN [address] [facility] [address] [place] [address] [facility] Start: 05-18-2023 End: 05-18-2023 Patient encounter procedure 05/18/2023 4:30 PM EST Office Visit [facility] [address] [place] [address] Adelaida Carrion, BRIANA [address] [place] [id number] Arrived [facility] Comment on above: Arrived Start: 05-18-2023 End: 05-18-2024 XR Hip - left 3 Views XR hip left 2 or 3 views Imaging Routine Left hip pain Expected: 05/18/2023 (Approximate), Expires: 05/18/2024 [facility] Work Phone: Comment on above: Expected: 05/18/2023 (Approximate), Expires: 05/18/2024 Start: 03-23-2023 [facility] Start: 11-20-2022 [facility] Start: 11-18-2022 Referral to clinical grant administrator [facility] Start: 11-17-2022 Hospital admission [facility] Start: 11-17-2022 [facility] Start: 12-06-1991 Screening for malign ant neoplasm of cervix HPV/Cotest [facility] Start: 1960 Medicare Annual Well ness (AWV) Medicare Annual Wellness (AWV) [facility] Start: 1960 Screening for malign ant neoplasm of colon [facility] Start: 1960 Screening for malign ant neoplasm of lung Lung Cancer Screening Shared Decision Making [facility] BLOOD CULTURE 1 BLOOD CULTURE 1 Lab Routine 03/02/2024 3:20 AM EST [facility] Patient Education [facility] Work Phone: Patient referral [facility] Work Phone: [facility] Immunizations Immunization Date Immunization Notes Care Provider [facility] 01-28-2024 Influenza, injectabl e, [place] Canine Kidney, preservative free, quadrivalent Adelaida Aichholz [employer] Work Phone: [facility] 08-17-2023 zoster vaccine recombinant Adelaida Aichholz [employer] Work Phone: [facility] 02-13-2023 influenza, injectabl e, quadrivalent, preservative free Adelaida Aichholz [employer] Work Phone: [facility] 02-13-2023 SARS-COV-2 (COVID-19 ) vaccine, mRNA, spike protein, LNP, PF, 50 mcg/0.5 mL Adelaida Aichholz [employer] Work Phone: [facility] 02-13-2023 influenza virus vaccine, unspecified formulation Adelaida Aichholz [employer] Work Phone: [facility] 02-19-2022 diphtheria, tetanus toxoids and pertussis vaccine Adelaida Aichholz [employer] Work Phone: [facility] 03-02-2021 Moderna SARS-CoV-2 Vaccination Adelaida Aichholz [employer] Work Phone: [facility] 08-24-2020 Moderna SARS-CoV-2 Vaccination Adelaida Merryholz [employer] Work Phone: [facility] 07-27-2020 Moderna SARS-CoV-2 Vaccination Adelaida Aichholz [employer] Work Phone: [facility] 05-28-2018 influenza, injectabl e, quadrivalent, preservative free Adelaida Aicmarquesholz Work Phone: [facility] 2017 pneumococcal conjuga te vaccine, 13 valent Adelaida Aicmarquesholz [employer] Work Phone: [facility] Payers Date Payer Category Payer Medicare [id number] 2022 Self-pay [id number] 2022 Medicare [id number] 2022 Medicare (Managed Care) [facility] [id number] 2008 Unknown [id number] 1961 Unknown [id number] 2.16.840.1.746785.3.579.2 .647 1961 Unknown [id number] 2.16.840.1.226932.3.579.2 .593 1961 Unknown [id number] 2.16.840.1.208515.3.579.2 .593 1961 Unknown [id number] 2.16.840.1.992665.3.579.2 .593 1961 Unknown [id number] 2.16.840.1.781375.3.579.2 .593 1961 Unknown [id number] 2.16.840.1.848201.3.579.2 .593 1961 Unknown [id number] 2.16.840.1.366158.3.579.2 .593 1961 Unknown [id number] 2.16.840.1.694379.3.579.2 .593 1961 Unknown [id number] 2.16.840.1.575655.3.579.2 .593 1961 Unknown [id number] 2.16.840.1.713373.3.579.2 .593 1961 Unknown [id number] 2.16.840.1.746243.3.579.2 .593 1961 Unknown [id number] 2.16.840.1.219649.3.579.2 .593 1961 Unknown [id number] 2.16.840.1.572977.3.579.2 .593 1961 Unknown [id number] 2.16.840.1.324459.3.579.2 .593 1961 Unknown [id number] 2.16.840.1.472065.3.579.2 .593 1961 Unknown [id number] 2.16.840.1.015087.3.579.2 .593 1961 Unknown [id number] 2.16.840.1.945884.3.579.2 .593 1961 Unknown [id number] 2.16.840.1.009250.3.579.2 .593 1961 Unknown [id number] 2.16.840.1.930806.3.579.2 .593 1961 Unknown [id number] 2.16.840.1.624626.3.579.2 .593 1961 Unknown [id number] 2.16.840.1.875908.3.579.2 .593 1961 Unknown [id number] 2.16.840.1.297617.3.579.2 .593 1961 Unknown [id number] 2.16.840.1.329196.3.579.2 .593 1961 Unknown [id number] 2.16.840.1.934488.3.579.2 .593 1961 Unknown [id number] 2.16.840.1.262517.3.579.2 .593 1961 Unknown [id number] 2.16.840.1.831845.3.579.2 .125 1961 Unknown [id number] 2.16.840.1.431981.3.579.2 .125 1961 Unknown [id number] 2.16.840.1.675700.3.579.2 .125 1961 Unknown [id number] 2.16.840.1.247484.3.579.2 .125 1961 Unknown [id number] 2.16.840.1.880131.3.579.2 .125 1961 Unknown [id number] 2.16.840.1.662979.3.579.2 .125 1961 Unknown [id number] 2.16.840.1.876494.3.579.2 .125 1961 Unknown [id number] 2.16.840.1.231626.3.579.2 .1258 1961 Unknown [id number] 2.16.840.1.635726.3.579.2 .1258 1961 Unknown [id number] 2.16.840.1.680885.3.579.2 .1258 1961 Unknown [id number] 2.16.840.1.487362.3.579.2 .1258 1961 Unknown [id number] 2.16.840.1.442644.3.579.2 .1258 1961 Unknown [id number] 2.16.840.1.357209.3.579.2 .1258 1961 Unknown [id number] 2.16.840.1.269997.3.579.2 .1258 1961 Unknown [id number] 2.16.840.1.882856.3.579.2 .1258 1961 Unknown [id number] 2.16.840.1.452702.3.579.2 .1258 1961 Unknown [id number] 2.16.840.1.703734.3.579.2 .1258 1961 Unknown [id number] 2.16.840.1.876380.3.579.2 .1258 1961 Unknown [id number] 2.16.840.1.307381.3.579.2 .1258 1961 Unknown [id number] 2.16.840.1.973366.3.579.2 .1258 1961 Unknown [id number] 2.16.840.1.400011.3.579.2 .1961 Unknown [id number] 2.16.840.1.314934.3.579.2 .1961 Unknown [id number] 2.16.840.1.285458.3.579.2 .1961 Unknown [id number] 2.16.840.1.804853.3.579.2 .196 1961 Unknown [id number] 2.16.840.1.686147.3.579.2 .196 1961 Unknown [id number] 2.16.840.1.324150.3.579.2 .196 1959 Medicare [id number] 1959 Unknown [id number] Private Health Insurance [facility] [id number] Unknown [id number] 2.16.840.1.018898.3.579.2 .531 Unknown [id number] 2.16.840.1.605882.3.579.2 .531 Social History Date Type Detail Facility Start: 11-18-2022 End: 10-14-2023 Tobacco smoking status [facility] Ex-smoker (finding) [facility] Start: 1960 Sex Assigned At Female [facility] Start: 03-25-2023 End: 08-16-2023 Sex Assigned At [facility] Start: 04-06-1976 End: 04-06-2016 History of tobacco use Current smoker [facility] Start: 04-06-1976 End: 04-06-2016 History of tobacco use Cigarette Smoker [facility] Start: 02-09-2023 End: 08-16-2023 Cigarettes smoked current (pack per day) - Reported 1 [facility] Start: 02-09-2023 End: 10-14-2023 Tobacco use and exposure Smokeless tobacco non-user [facility] Start: 05-18-2023 End: 08-16-2024 Alcohol intake Lifetime non-drinker (finding) [facility] Start: 11-13-2022 Alcohol Comment caffeine intake: 1-2 cups per day. [facility] Start: 10-01-2022 Gender identity Identifies as female gender (finding) [facility] Start: 10-01-2022 Sexual orientation Heterosexual (finding) [...] Facility 11-20-2022 Functional status Patient at Baseline [facility] Work Phone: Mental Status Date Assessment Result Facility 11-20-2022 Cognitive function Cognitive Sta tus Patient is Progressing Toward Baseline [facility] Work Phone: Clinical Notes 10-03-2021 to [...] biotin 5 MG tablet Pt taking OTC ([employer]) Calcium Citrate-Vitamin D (CITRACAL + D PO) Pt taking OTC (Robin) carvedilol (COREG) 12.5 mg, Oral, 2 times daily with meals cetirizine (ZYRTEC) 10 mg, Oral, Daily diclofenac (Voltaren) 50 MG EC tablet DULoxetine (CYMBALTA) 60 mg, 2 times daily fluticasone (Flonase) 50 MCG/ACT nasal spray 2 sprays, Each Nostril, Daily gabapentin (NEURONTIN) 300 mg, Oral, 2 times daily, Due now losartan (COZAAR) 100 mg, Oral, Daily Magnesium 400 MG capsule Pt taking OTC(Appticles) Melatonin 12 MG tablet 1 tablet, Nightly Multiple Vitamins-Minerals (BARIATRIC MULTIVITAMINS/IRON PO) Pt taking OTC ([employer]) omeprazole (PRILOSEC) 20 mg, Oral, Daily before [...] Anxiety 05/18/2023 Bipolar disorder with severe depression ([facility]) 05/18/2023 Brain lesion Brain vascular malformation Chronic pain disorder Closed fracture of patella 02/04/2018 Colon polyps Constipation Degenerative cervical disc Degenerative lumbar disc Depression ([facility]) 05/18/2023 Diastolic dysfunction Dizziness 05/18/2023 Dysphagia Fibromyalgia Fibromyalgia Gastrocnemius equinus GERD (gastroesophageal reflux disease) Heart murmur Hematoma of right breast Hemiparesis ([facility]) Hemiparesis, right ([facility]) Hemorrhoid int/external hemorrhoids Hiatal hernia Iron deficiency Left foot pain 03/25/2023 Lower extremity edema Mood disorder ([facility]) mixed mood disorder OSMANY (obstructive sleep apnea) Osteoporosis ([facility]) Overactive bladder Pre-diabetes Primary hypertension ([facility]) 03/25/2023 PTSD (post-traumatic stress disorder) ([facility]) Restless leg Right knee pain Right sided weakness S/P bariatric surgery Shingles Slurred speech Stroke ([facility]) 2018 Tenosynovitis, de Quervain Thoracic [...] trelegy 100's resolved documented in this encounter [facility] 08-16-2024 Instructions Adelaida Carrion NP - 08/16/2024 11:30 AM EDT Mammogram and lung cancer CT documented in this encounter [facility] 07-27-2024 History of Present illness Narrative Associated Problem(s): Bronchitis Continue OTC mucus relief meds Will add trelegy for bronchitis 100's #2 samples lot [id number], exp 10/28 Fu if not better No s/s resp distress [facility] ER- 07/24/24 Bronchitis & Leurisy Medications: mucus [...] with chief complaint of Hospital Follow-up HPI: [facility] ER- 07/24/24 Bronchitis & Leurisy Medications: mucus [...] biotin 5 MG tablet Pt taking OTC ([employer]) Calcium Citrate-Vitamin D (CITRACAL + D PO) Pt taking OTC (Robin) carvedilol (COREG) 12.5 mg, Oral, 2 times daily with meals cetirizine (ZYRTEC) 10 mg, Oral, Daily diclofenac (Voltaren) 50 MG EC tablet DULoxetine (CYMBALTA) 60 mg, 2 times daily fluticasone (Flonase) 50 MCG/ACT nasal spray 2 sprays, Each Nostril, Daily gabapentin (NEURONTIN) 300 mg, Oral, 2 times daily, Due now losartan (COZAAR) 100 mg, Oral, Daily Magnesium 400 MG capsule Pt taking OTC(Appticles) Melatonin 12 MG tablet 1 tablet, Nightly Multiple Vitamins-Minerals (BARIATRIC MULTIVITAMINS/IRON PO) Pt taking OTC ([employer]) omeprazole (PRILOSEC) 20 mg, Oral, Daily before [...] pain 03/25/2023 Lower extremity edema Mood disorder ([facility]) mixed mood disorder OSMANY (obstructive sleep apnea) Osteoporosis ([facility]) Overactive bladder Pre-diabetes Primary hypertension ([facility]) 03/25/2023 PTSD (post-traumatic stress disorder) ([facility]) Restless leg Right knee pain Right sided weakness S/P bariatric surgery Shingles Slurred speech Stroke ([facility]) 2018 Tenosynovitis, de Quervain Thoracic [...] meds: amlodipine, losartan documented in this encounter [facility] 07-26-2024 History of Present illness Narrative Images from the original note were not included. Subjective Chief Complaint Patient presents with Altered Mental Status Past Medical History: Diagnosis Date Abnormal mammogram of left breast Achilles tendinitis, right leg Acute gout of right foot, unspecified cause Allergic rhinitis 05/18/2023 Anemia Anxiety 05/18/2023 Bipolar disorder with severe depression ([facility]) 05/18/2023 Brain lesion Brain vascular [...] S/P bariatric surgery Shingles Slurred speech Stroke ([facility]) 2018 Tenosynovitis, de Quervain Thoracic [...] Review Audit Reviewed by Beronica Reyes MA (Athletic Monitor) on 07/26/24 at 1049 Medication Order Taking? Sig Documenting Provider Last Dose Status amLODIPine (Norvasc) 10 MG tablet [id number] Take 1 tablet (10 mg) by mouth Daily Adelaida Carrion NP 06/11/24 235 azithromycin (Zithromax) 250 MG tablet [id number] Day #1: 2 tablets, and Day 2-5: 1 tablet daily Adelaida Carrion NP Active biotin 5 MG tablet [id number] Pt taking OTC ([employer]) Historical Provider, Active Calcium Citrate-Vitamin D (CITRACAL + D PO) [id number] Pt taking OTC (Robin) Historical Provider, Active carvedilol (Coreg) 12.5 MG tablet [id number] Take 1 tablet (12.5 mg) by mouth in the morning and 1 tablet (12.5 mg) in the evening. Take with meals. Adelaida Carrion NP 06/11/24 2359 cetirizine (ZyrTEC) 10 MG tablet [id number] Take 1 tablet (10 mg) by mouth Daily Adelaida Carrion NP 06/11/242358 DULoxetine (Cymbalta) [address] capsule [id number] Take 60 mg by mouth in the morning and 60 mg before bedtime. Do not crush or chew.. Active fluticasone (Flonase) 50 MCG/ACT nasal spray [id number] Administer 2 sprays into each nostril Daily Adelaida Carrion NP 06/11/242358 gabapentin (Neurontin) 300 MG capsule [id number] Take 1 capsule (300 mg) by mouth in the morning and 1 capsule (300 mg) before bedtime. Due now. MAUREEN Akbar Active losartan (Cozaar) 100 MG tablet [id number] Take 1 tablet (100 mg) by mouth Daily Adelaida Carrion NP 06/11/242358 Magnesium 400 MG capsule [id number] Pt taking OTC(Appticles) Historical ProviderMD Active Melatonin 12 MG tablet [id number] Take 1 tablet by mouth at bedtime Active Multiple Vitamins-Minerals (BARIATRIC MULTIVITAMINS/IRON PO) [id number] Pt taking OTC ([employer]) Historical ProviderMD Active nystatin (Mycostatin) 881726 UNIT/GM powder [id number] Apply 1 application topically in the morning and 1 application before bedtime. Adelaida Carrion NP Active nystatin (Mycostatin) cream [id number] Adelaida Carrion NP Active omeprazole (PriLOSEC) [address] capsule [id number] Take 1 capsule (20 mg) by mouth in the morning. Take before meals. Adelaida Carrion NP 06/11/242358 rOPINIRole (Requip) 2 MG tablet [id number] Take 1 tablet (2 mg) by mouth at bedtime MAUREEN Akbar Active spironolactone (Aldactone) 50 MG tablet [id number] Take 1 tablet (50 mg) by mouth Daily Adelaida Carrion NP 06/11/242358 tiZANidine (Zanaflex) 4 MG tablet [id number] Take 4 mg by mouth every 8 (eight) hours if needed for muscle spasms 1-2 tablets Adelaida Carrion NP Active traZODone (Desyrel) 150 MG tablet [id number] Take 150 mg by mouth at bedtime Active Vraylar 3 MG capsule [id number] Active HPI AMS -weaned Lacosimide -denies any further headaches and dizziness -denies any recent episodes of confusion -trouble with short and terminologist memory -states senior living is mild -forgets recent conversations and events [...] triceps, wrist extensors, wrist extensors, wrist flexor, block operator strength 5/5. LUE Strength deltoid, biceps, triceps, wrist extensors, wrist extensors, wrist flexor, block operator strength 5/5. RLE Strength illopsoas, quadriceps, tibialis [...] not all inclusive. Patient was admitted to [facility] from the [facility] on 08/24/2023 with acute respiratory failure and confusion thought to be secondary to metabolic encephalopathy. MOCA 03/01/24 was 26/30. She notes she did speech therapy and responded well to this. She was recently evaluated [place] [facility] [place] for severe encephalopathy. She had brain [...] almost 6 hours a night. ___ [facility] [place] 02/29/2024: Brain MRI with and without [...] of the brain in July 2019 showed [id number] white matter changes with the largest area [...] in 2 months documented in this encounter [facility] 05-12-2024 History of Present illness Narrative [...] includes CVA. There is no history of CAD/[place], heart failure or PVD. GERD She reports [...] biotin 5 MG tablet Pt taking OTC ([employer]) Calcium Citrate-Vitamin D (CITRACAL + D PO) Pt taking OTC (Robin) carvedilol (COREG) 12.5 mg, Oral, 2 times [...] Daily Magnesium 400 MG capsule Pt taking OTC(Appticles) Melatonin 12 MG tablet 1 tablet, Nightly Multiple Vitamins-Minerals (BARIATRIC MULTIVITAMINS/IRON PO) Pt taking OTC ([employer]) nystatin (Mycostatin) [id number] UNIT/GM powder 1 application , 2 times [...] Anxiety 05/18/2023 Bipolar disorder with severe depression ([facility]) 05/18/2023 Brain lesion Brain vascular malformation Chronic pain disorder Closed fracture of patella 02/04/2018 Colon polyps Constipation Degenerative cervical disc Degenerative lumbar disc Depression ([facility]) 05/18/2023 Diastolic dysfunction Dizziness 05/18/2023 Dysphagia Fibromyalgia Fibromyalgia Gastrocnemius equinus GERD (gastroesophageal reflux disease) Heart murmur Hematoma of right breast Hemiparesis ([facility]) Hemiparesis, right ([facility]) Hemorrhoid int/external hemorrhoids Hiatal hernia Iron deficiency Left foot pain 03/25/2023 Lower extremity edema Mood disorder ([facility]) mixed mood disorder OSMANY (obstructive sleep apnea) Osteoporosis ([facility]) Overactive bladder Pre-diabetes Primary hypertension ([facility]) 03/25/2023 PTSD (post-traumatic stress disorder) ([facility]) Restless leg Right knee pain Right sided weakness S/P bariatric surgery Shingles Slurred speech Stroke ([facility]) 2018 Tenosynovitis, de Quervain Thoracic [...] Morbid (severe) obesity due to excess calories ([facility]) Discussed with patient their BMI [...] that manages your OSMANY: Daniela Hemiparesis, right ([facility]) Stable with this from prior stroke GERD [...] spironolactone (Aldactone) 50 MG tablet Primary hypertension ([facility]) - Primary Please check blood pressure daily and record DASH diet Limit caffeine Take medication as directed Contact office if chest pain, pressure, dizziness, shortness of breath, swelling legs Recommend slow position changes Current meds: amlodipine, losartan Chronic kidney disease, stage 3a (HCC) ([facility]) Monitor labs at minimum every year Body mass index (BMI) 45.0-49.9, adult ([facility]) Other Visit Diagnoses Essential (primary) [...] that supplies your machine and tubing/filters etc: [facility] Doctor that manages your OSMANY: Daniela Associated Problem(s): Hemiparesis, right ([facility]) Stable with this from prior stroke documented in this encounter [facility] 05-12-2024 Instructions Adelaida Carrion NP - 05/12/2024 10:00 AM EST No changes in meds documented in this encounter [facility] 04-12-2024 Telephone encounter Note 03/10/2024 Continue Gabapentin 300 mg BID for RLS. Continue clonazepam 0.5mg PO BID for RLS. This was decreased during recent hospitalization Continue Vimpat 50mg PO BID for seizure prevention [facility] 04-12-2024 Miscellaneous Notes 03/10/2024 Continue Gabapentin 300 mg BID for RLS. Continue clonazepam 0.5mg PO BID for RLS. This was decreased during recent hospitalization Continue Vimpat 50mg PO BID for seizure prevention documented in this encounter [facility] 04-07-2024 History of Present illness Narrative [...] homebody. Remains involved as a classically trained [employer]. Diagnosed with OSMANY and RLS, wears CPAP nightly. Pain complaints include fibromyalgia and degenerative disc disease. Also has prior history of migraines which have resolved over the past 17 years. Neurological history includes small left thalamic stroke in 2016. MoCA 26/30. Patient accurately recalled this screening measure as well as her overall performance and score on it. Admitted to [facility] from the [facility] on 08/24/2023 with acute respiratory failure and confusion thought to be secondary to metabolic encephalopathy. LTME in August 2023 negative. Recently evaluated [place] [facility] [place] 03/02/2024 for severe encephalopathy. Brain MRI [...] any history of alcohol/substance abuse. Reformed smoker. [place] language [place]. Reported relocating from [place] to [place] in 2011. Completed a bachelor's degree. 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 Currently on disability. Resides with of 26 years along with her son, grandson, and 2 dogs. Has 2 children from a prior relationship. MEDICAL HISTORY/MEDICATION: MEDICATIONS: Current Outpatient Medications Medication Instructions amLODIPine (NORVASC) 10 mg, Oral, Daily biotin 5 MG tablet Pt taking OTC ([employer]) Calcium Citrate-Vitamin D (CITRACAL + D PO) Pt taking OTC (Robin) carvedilol (COREG) 12.5 mg, Oral, 2 times [...] Daily Magnesium 400 MG capsule Pt taking OTC(Appticles) Melatonin 12 MG tablet 1 tablet, Oral, Nightly Multiple Vitamins-Minerals (BARIATRIC MULTIVITAMINS/IRON PO) Pt taking OTC ([employer]) nystatin (Mycostatin) [id number] UNIT/GM powder 1 application , 2 times [...] design >16th %ile. Motor/Speed of Processing: Right-handed. Vice President Of Business Development strength 16th %ile with right-hand, 38th %ile [...] Learning of a word list 79th %ile (6-58-47-12-12), delayed recall 93rd %ile. Recognition discriminability 93rd [...] Please contact me with any questions at [phone]. documented in this encounter [facility] 03-16-2024 History of Present illness Narrative Associated Problem(s): Right bundle branch block (RBBB) determined by electrocardiography At this point I will look at her past EKG's, She has had ECHO in past No symptoms, at this time I do not think that further testing is needed Pt is having a memory test done on apr 07 [place] Pt is anxious and afraid-pt father had dementia Spironolactone pt is asking for 50mg instead of 25mg Images from the original note were not included. Michelle Be is a 63 y.o. female presents with chief complaint of Anxiety HPI: Here for hospital follow up: AMS She was evaluated [place] [facility], was seen by Neurology reviewed notes from [...] biotin 5 MG tablet Pt taking OTC ([employer]) Calcium Citrate-Vitamin D (CITRACAL + D PO) Pt taking OTC (Robin) carvedilol (COREG) 12.5 mg, Oral, 2 times [...] Daily Magnesium 400 MG capsule Pt taking OTC(Appticles) Melatonin 12 MG tablet 1 tablet, Oral, Nightly Multiple Vitamins-Minerals (BARIATRIC MULTIVITAMINS/IRON PO) Pt taking OTC ([employer]) nystatin (Mycostatin) [id number] UNIT/GM powder 1 application , 2 times [...] Anxiety 05/18/2023 Bipolar disorder with severe depression ([facility]) 05/18/2023 Brain lesion Brain vascular malformation Chronic pain disorder Closed fracture of patella 02/04/2018 Colon polyps Constipation Degenerative cervical disc Degenerative lumbar disc Depression ([facility]) 05/18/2023 Diastolic dysfunction Dizziness 05/18/2023 Dysphagia Fibromyalgia Fibromyalgia Gastrocnemius equinus GERD (gastroesophageal reflux disease) Heart murmur Hematoma of right breast Hemiparesis ([facility]) Hemiparesis, right ([facility]) Hemorrhoid int/external hemorrhoids Hiatal hernia Iron deficiency Left foot pain 03/25/2023 Lower extremity edema Mood disorder ([facility]) mixed mood disorder OSMANY (obstructive sleep apnea) Osteoporosis ([facility]) Overactive bladder Pre-diabetes Primary hypertension ([facility]) 03/25/2023 PTSD (post-traumatic stress disorder) ([facility]) Restless leg Right knee pain Right sided weakness S/P bariatric surgery Shingles Slurred speech Stroke ([facility]) 2018 Tenosynovitis, de Quervain Thoracic [...] to have evaluation documented in this encounter [facility] 03-16-2024 Instructions Adelaida Carrion NP - 03/16/2024 10:00 AM EST Spironolactone: I discontinued the 25mg script for this, sent a new script to DM, for a 50mg pill, you will take 1 pill daily Memory testing in Apr 2024 Follow up with me in early May, sooner if needed documented in this encounter [facility] 03-16-2024 Telephone encounter Note Yep, sent to [facility]. [facility] 03-16-2024 Miscellaneous Notes Yep, sent to [facility]. Patient calls and states that hospital lowered her requip to 2 mg at bed time. Okay to send as new dosage? documented in this encounter [facility] 03-15-2024 Telephone encounter Note Patient calls and states that hospital lowered her requip to 2 mg at bed time. Okay to send as new dosage? [facility] 03-14-2024 History of Present illness Narrative [...] homebody. Remains involved as a classically trained [employer]. Diagnosed with OSMANY and RLS, wears CPAP nightly. Pain complaints include fibromyalgia and degenerative disc disease. Also has prior history of migraines which have resolved over the past 17 years. Neurological history includes small left thalamic stroke in 2016. MoCA . Patient accurately recalled this screening measure as well as her overall performance and score on it. Admitted to [facility] from the [facility] on 08/24/2023 with acute respiratory failure and confusion thought to be secondary to metabolic encephalopathy. Previous LTME in August 2023 negative. [place] [facility] [place] for severe encephalopathy. Brain MRI [...] any history of alcohol/substance abuse. Reformed smoker. [place] language [place]i. Reported relocating from [place] to [place] in 2011. Completed a bachelors [...] Heart murmur Hematoma of right breast Hemiparesis ([facility]) Hemiparesis, right ([facility]) Hemorrhoid int/external hemorrhoids Hiatal hernia Iron deficiency Left foot pain 03/25/2023 Lower extremity edema Mood disorder ([facility]) mixed mood disorder OSMANY (obstructive sleep apnea) Osteoporosis ([facility]) Overactive bladder Pre-diabetes Primary hypertension ([facility]) 03/25/2023 PTSD (post-traumatic stress disorder) ([facility]) Restless leg Right knee pain Right sided weakness S/P bariatric surgery Shingles Slurred speech Stroke ([facility]) 2018 Tenosynovitis, de Quervain Thoracic back pain, unspecified back pain laterality, unspecified chronicity Tobacco dependence Vertigo, benign paroxysmal Yeast infection of the skin 05/18/2023 MEDICATIONS: Current Outpatient Medications Medication Instructions amLODIPine (NORVASC) 10 mg, Oral, Daily biotin 5 MG tablet Pt taking OTC Agentrun) Calcium Citrate-Vitamin D (CITRACAL + D PO) Pt taking OTC (Robin) carvedilol (COREG) 12.5 mg, Oral, 2 times [...] Daily Magnesium 400 MG capsule Pt taking OTCHipcricket) Melatonin 12 MG tablet 1 tablet, Oral, Nightly Multiple Vitamins-Minerals (BARIATRIC MULTIVITAMINS/IRON PO) Pt taking OTC ([employer]) nystatin (Mycostatin) [id number] UNIT/GM powder 1 application , Topical, 2 [...] Please contact me with any questions at [phone]. documented in this encounter [facility] 02-16-2024 History of Present illness Narrative [...] biotin 5 MG tablet Pt taking OTC ([employer]) Calcium Citrate-Vitamin D (CITRACAL + D PO) [...] Daily Magnesium 400 MG capsule Pt taking OTCHipcricket) Melatonin 12 MG tablet 1 tablet, Oral, Nightly Multiple Vitamins-Minerals (BARIATRIC MULTIVITAMINS/IRON PO) Pt taking OTC ([employer]) nystatin (Mycostatin) [id number] UNIT/GM powder 1 application , Topical, 2 [...] Anxiety 05/18/2023 Bipolar disorder with severe depression ([facility]) 05/18/2023 Brain lesion Brain vascular malformation Chronic pain disorder Closed fracture of patella 02/04/2018 Colon polyps Constipation Degenerative cervical disc Degenerative lumbar disc Depression ([facility]) 05/18/2023 Diastolic dysfunction Dizziness 05/18/2023 Dysphagia Fibromyalgia Fibromyalgia Gastrocnemius equinus GERD (gastroesophageal reflux disease) Heart murmur Hematoma of right breast Hemiparesis ([facility]) Hemiparesis, right ([facility]) Hemorrhoid int/external hemorrhoids Hiatal hernia Iron deficiency Left foot pain 03/25/2023 Lower extremity edema Mood disorder ([facility]) mixed mood disorder OSMANY (obstructive sleep apnea) Osteoporosis ([facility]) Overactive bladder Pre-diabetes Primary hypertension ([facility]) 03/25/2023 PTSD (post-traumatic stress disorder) ([facility]) Restless leg Right knee pain Right sided weakness S/P bariatric surgery Shingles Slurred speech Stroke ([facility]) 2018 Tenosynovitis, de Quervain Thoracic [...] nursing note reviewed. Exam conducted with a property custodian present. Constitutional: General: She is not in [...] chronic conditions allow documented in this encounter [facility] 01-28-2024 History of Present illness Narrative [...] biotin 5 MG tablet Pt taking OTC ([employer]) Calcium Citrate-Vitamin D (CITRACAL + D PO) [...] Daily Magnesium 400 MG capsule Pt taking OTC(Appticles) Melatonin 12 MG tablet 1 tablet, Oral, Nightly Multiple Vitamins-Minerals (BARIATRIC MULTIVITAMINS/IRON PO) Pt taking OTC ([employer]) nystatin (Mycostatin) [id number] UNIT/GM powder 1 application , Topical, 2 [...] Anxiety 05/18/2023 Bipolar disorder with severe depression ([facility]) 05/18/2023 Brain lesion Brain vascular malformation Chronic pain disorder Closed fracture of patella 02/04/2018 Colon polyps Constipation Degenerative cervical disc Degenerative lumbar disc Depression ([facility]) 05/18/2023 Diastolic dysfunction Dizziness 05/18/2023 Dysphagia Fibromyalgia Fibromyalgia Gastrocnemius equinus GERD (gastroesophageal reflux disease) Heart murmur Hematoma of right breast Hemiparesis ([facility]) Hemiparesis, right ([facility]) Hemorrhoid int/external hemorrhoids Hiatal hernia Iron deficiency Left foot pain 03/25/2023 Lower extremity edema Mood disorder ([facility]) mixed mood disorder OSMANY (obstructive sleep apnea) Osteoporosis ([facility]) Overactive bladder Pre-diabetes Primary hypertension ([facility]) 03/25/2023 PTSD (post-traumatic stress disorder) ([facility]) Restless leg Right knee pain Right sided weakness S/P bariatric surgery Shingles Slurred speech Stroke ([facility]) 2018 Tenosynovitis, de Quervain Thoracic [...] Relevant Orders Flu vaccine, MDCK, quadrivalent, PF ([id number]) (Flucelvax single dose syringe) Associated Problem(s): Tobacco [...] start this process documented in this encounter [facility] 01-04-2024 History of Present illness Narrative [...] compliance problems. There is no history of CAD/[place], heart failure or PVD. Identifiable causes of hypertension include sleep apnea. SUBJECTIVE: MEDICATIONS: Current Outpatient Medications Medication Instructions amLODIPine (NORVASC) 10 mg, Oral, Daily biotin 5 MG tablet Pt taking OTC Agentrun) Calcium Citrate-Vitamin D (CITRACAL + D PO) Pt taking OTC [employer]) carvedilol (COREG) 12.5 mg, Oral, 2 times [...] Daily Magnesium 400 MG capsule Pt taking OTMoviePass) Melatonin 12 MG tablet 1 tablet, Oral, Nightly Multiple Vitamins-Minerals (BARIATRIC MULTIVITAMINS/IRON PO) Pt taking OTC Agentrun) nystatin (Mycostatin) [id number] UNIT/GM powder 1 application , Topical, 2 [...] mood disorder OSMANY (obstructive sleep apnea) Osteoporosis ([facility]) Overactive bladder Pre-diabetes Primary hypertension ([facility]) 03/25/2023 PTSD (post-traumatic stress disorder) ([facility]) Restless leg Right knee pain Right sided weakness S/P bariatric surgery Shingles Slurred speech Stroke ([facility]) 2018 Tenosynovitis, de Quervain Thoracic [...] MCG/ACT nasal spray documented in this encounter [facility] 12-09-2023 History of Present illness Narrative [...] machine. She is normally seen at the [facility] and was last seen on [...] Degenerative cervical disc Degenerative lumbar disc Depression ([facility]) 05/18/2023 Diastolic dysfunction Dizziness 05/18/2023 Dysphagia Fibromyalgia Fibromyalgia Gastrocnemius equinus GERD (gastroesophageal reflux disease) Heart murmur Hematoma of right breast Hemiparesis ([facility]) Hemiparesis, right ([facility]) Hemorrhoid int/external hemorrhoids Hiatal hernia Iron deficiency Left foot pain 03/25/2023 Lower extremity edema Mood disorder ([facility]) mixed mood disorder OSMANY (obstructive sleep apnea) Osteoporosis ([facility]) Overactive bladder Pre-diabetes Primary hypertension ([facility]) 03/25/2023 PTSD (post-traumatic stress disorder) ([facility]) Restless leg Right knee pain Right sided weakness S/P bariatric surgery Shingles Slurred speech Stroke ([facility]) 2018 Tenosynovitis, de Quervain Thoracic [...] melatonin. She was last seen in the [facility] on June 24, 2023. Since [...] for short term insomnia and not for senior living insomnia. She is compliant on her download [...] was counseled on the risks of stroke, [place], and sudden with OSMANY, along with the [...] clinic: one year documented in this encounter [facility] 12-08-2023 History of Present illness Narrative [...] Anxiety 05/18/2023 Bipolar disorder with severe depression ([facility]) 05/18/2023 Brain lesion Brain vascular malformation Chronic pain disorder Closed fracture of patella 02/04/2018 Colon polyps Constipation Degenerative cervical disc Degenerative lumbar disc Depression ([facility]) 05/18/2023 Diastolic dysfunction Dizziness 05/18/2023 Dysphagia Fibromyalgia Fibromyalgia Gastrocnemius equinus GERD (gastroesophageal reflux disease) Heart murmur Hematoma of right breast Hemiparesis ([facility]) Hemiparesis, right ([facility]) Hemorrhoid int/external hemorrhoids Hiatal hernia Iron deficiency Left foot pain 03/25/2023 Lower extremity edema Mood disorder ([facility]) mixed mood disorder OSMANY (obstructive sleep apnea) Osteoporosis ([facility]) Overactive bladder Pre-diabetes Primary hypertension ([facility]) 03/25/2023 PTSD (post-traumatic stress disorder) ([facility]) Restless leg Right knee pain Right sided weakness S/P bariatric surgery Shingles Slurred speech Stroke ([facility]) 2018 Tenosynovitis, de Quervain Thoracic [...] Review Audit Reviewed by Festus Baron MA (Athletic Monitor) on 12/08/23 at 1525 Medication Order Taking? Sig Documenting Provider Last Dose Status amLODIPine (Norvasc) 10 MG tablet [id number] Take 1 tablet (10 mg) by mouth Daily Adelaida Carrion NP Active biotin 5 MG tablet [id number] Pt taking OTC ([employer] Software) Historical Provider, Active Calcium Citrate-Vitamin D (CITRACAL + D PO) [id number] Pt taking OTC (Robin) Historical Provider, Active Cariprazine HCl (Vraylar) 4.5 MG capsule [id number] Take 4.5 mg by mouth Daily Active carvedilol (Coreg) 12.5 MG tablet [id number] Take 1 tablet (12.5 mg) by mouth in the morning and 1 tablet (12.5 mg) in the evening. Take with meals. Adelaida Carrion NP Active cetirizine (ZyrTEC) 10 MG tablet [id number] Take 1 tablet (10 mg) by mouth Daily Adelaida Carrion NP Active clonazePAM (KlonoPIN) 1 MG tablet [id number] Take 1 tablet (1 mg) by mouth 2 (two) times a day as needed for anxiety Do not start before October 16, 2023. Sonam Brown NP 11/15/23 235 DULoxetine (Cymbalta) [address] capsule [id number] Take 60 mg by mouth in the morning and 60 mg before bedtime. Do not crush or chew.. Active fluconazole (Diflucan) 150 MG tablet [id number] 1 pill every 3 days for a total of 3 doses Adelaida Carrion NP Active fluticasone (Flonase) 50 MCG/ACT nasal spray [id number] Administer 2 sprays into each nostril Daily Adelaida Carrion NP 11/04/23 235 gabapentin (Neurontin) 300 MG capsule [id number] Take 1 capsule (300 mg) by mouth in the morning and 1 capsule (300 mg) before bedtime. Sonam Brown NP Active losartan (Cozaar) 100 MG tablet [id number] Take 1 tablet (100 mg) by mouth Daily Adelaida Carrion NP Active Magnesium 400 MG capsule [id number] Pt taking OTC(Appticles) Historical Provider, Active Melatonin 12 MG tablet [id number] Take 1 tablet by mouth at bedtime Active Multiple Vitamins-Minerals (BARIATRIC MULTIVITAMINS/IRON PO) [id number] Pt taking OTC ([employer]) Historical Provider, Active nystatin (Mycostatin) 368379 UNIT/GM powder [id number] Apply 1 application topically in the morning and 1 application before bedtime. Adelaida Carrion NP Active omeprazole (PriLOSEC) [address] capsule [id number] Take 1 capsule (20 mg) by mouth in the morning. Take before meals. Adelaida Carrion NP Active rOPINIRole (Requip) 4 MG tablet [id number] Take 1 tablet (4 mg) by mouth at bedtime Sonam Brown NP Active spironolactone (Aldactone) 25 MG tablet [id number] Take 2 tablets (50 mg) by mouth Daily Adelaida Carrion NP Active tiZANidine (Zanaflex) 2 MG tablet [id number] Take 2 mg by mouth every 8 (eight) hours Adelaida Carrion NP Active traZODone (Desyrel) 150 MG tablet [id number] Take 150 mg by mouth at bedtime Active HPI AMS -Patient was admitted to [facility] from the [facility] on 08/24/2023 with acute respiratory failure and confusion thought to be secondary to metabolic encephalopathy. Patient denies any new hospital stays. -She was seen by Neurology who thought she had a toxic encephalopathy secondary to medication overuse. -She was monitored on LTME which did not show any evidence of seizures. -After she was discharged she had a short stay at the correction facility on 09/03/2023 and she was discharged [...] ankle and great toe bilaterally. Coordination Right: Rrvcmo-sx-rpoh normal. Rapid alternating movement normal.Left: Faykow-st-vtnc normal. Rapid alternating movement normal. Gait Casual gait is normal including stance, stride, and arm swing. Motor Examination RUE Strength deltoid, biceps, triceps, wrist extensors, wrist extensors, wrist flexor, block operator strength 5/5. LUE Strength deltoid, biceps, triceps, wrist extensors, wrist extensors, wrist flexor, block operator strength 5/5. RLE Strength illopsoas, quadriceps, tibialis [...] not all inclusive. Patient was admitted to [facility] from the [facility] on 08/24/2023 with acute respiratory failure and [...] of the brain in July 2019 showed xdor-wa-sxizdlen white matter changes with the largest area [...] make further recommendations documented in this encounter [facility] 05-18-2023 History of Present illness Narrative [...] (BARIATRIC MULTIVITAMINS/IRON PO) Bariatric Multivitamins/Iron nystatin (Mycostatin) 950862 UNIT/GM powder 1 application , Topical, 2 [...] Anxiety 05/18/2023 Bipolar disorder with severe depression ([facility]) 05/18/2023 Brain vascular malformation Chronic pain disorder Colon polyps Constipation Degenerative cervical disc Degenerative lumbar disc Depression ([facility]) 05/18/2023 Diastolic dysfunction Dizziness 05/18/2023 Dysphagia Fibromyalgia Gastrocnemius equinus GERD (gastroesophageal reflux disease) Heart murmur Hematoma of right breast Hemiparesis, right ([facility]) Hemorrhoid int/external hemorrhoids Hiatal hernia Iron deficiency Left foot pain 03/25/2023 Lower extremity edema Mood disorder ([facility]) mixed mood disorder OSMANY (obstructive sleep apnea) Osteoporosis ([facility]) Overactive bladder Pre-diabetes Primary hypertension ([facility]) 03/25/2023 PTSD (post-traumatic stress disorder) ([facility]) Restless leg Right knee pain Right sided weakness S/P bariatric surgery Shingles Slurred speech Stroke ([facility]) 2018 Tenosynovitis, de Quervain Thoracic [...] yearly and prn documented in this encounter [facility] 03-23-2023 Procedure note [facility] 12-19-2022 Evaluation note Encounter Date Diagnosis Assessment Notes Dec, Skin candidiasis (ICD-10 - B37.2) Drink plenty fluids, get plenty of rest. Continue home medications as prescribed. Take the Diflucan as prescribed until gone. Follow-up with your family physician if no improvement in 2 to 3 days [facility] Other 08-17-2023 Discharge summary Author Eduardo bautista [facility] November 20, 2022 6:38am Note Date/Time November 20, 2022 6: 38am [facility] [address] [place], [place] [id number] Discharge Summary Signed Patient: Michelle Be MR#: [id number] : 1960 Acct:[id number] Age/Sex: 61 / F Adm Date: 3 Loc: 1S Room: 8G2765-[address]: Gaudencio Monk MD Copies to: MD Adelaida Álvarez, MACHINE STRAP BUCKLER-C~ Providers Date of Discharge: 11/20/22 Discharging Provider: [...] time.? She reports moving to [place] from [place] in 2011 and was then diagnosed with bipolar disorder at [facility] in [place], where she still follows with a therapist.? Shereports that she has been with 7 therapists in the last 9 years and is currentlycompleting EMDR with her current therapist. Past hospitalizations: Her most recent hospitalization was 5 years ago [place] in [place] for the same feeling she is experiencing [...] her , son and his girlfriend, and [facility].? Reports a situation in which they are attempting to seek custody of the grandson from the mother of the child.? She reports not feeling safe at homewith herself but feels safe when her family is home. Employment: Patient has not worked since 2010 due to her fibromyalgia.? [facility]. 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 (insert date/time [...] signed by Eduardo Monk MD> 11/20/22 0638 [facility] Work Phone: 1(378) 438-515308-16-2023 Progress note Author Eduardo bautista [facility] November 19, 2022 6:25am Note Date/Time November 19, 2022 6: 25am [facility] [address] [place] [address] Psychiatry Progress Note Signed Patient: Michelle Be MR#: [id number] : 1960 Acct:[id number] Age/Sex: 61 / F Adm Date: 3 Loc: Room: [address] [place] [address] Type : ADM IN Attending Dr: Gaudencio [...] signed by Eduardo Monk MD> 11/19/22 0625 [facility] Work Phone: 1(203) 238-106408-15-2023 Progress note Author Eduardo bautista [facility] November 18, 2022 11:01am Note Date/Time November 18, 2022 10 :11am [facility] [address] [place] [address] Psychiatry Progress Note Signed Patient: Michelle Be MR#: [id number] : 1960 Acct:[id number] Age/Sex: 61 / F Adm Date: 3 Loc: Room: 7K9004-7 Type : ADM IN Attending Dr: Gaudencio [...] by requesting a schedule 2 referring to [place] for pain management specifically every 4-6 hours [...] signed by MD DA Rangel> 11/18/22 1011 [facility] Work Phone: 1(171) 606-184108-14-2023 History and physical note Author Eduardo bautista [facility] November 17, 2022 12:48pm Note Date/Time November 17, 2022 12 :48pm [facility] [address] [place] [address] Psychiatry H&P Signed Patient: Michelle Be MR#: [id number] : 1960 Acct:[id number] Age/Sex: 61 / F Adm Date: 3 Loc: Room: [address] [place] [address] Type: ADM IN Attending Dr: Gaudencio Monk [...] time. She reports moving to [place] from [place] in 2011 and was then diagnosed with bipolar disorder at [facility] in [place], where she still follows with a therapist. Shereports that she has been with 7 therapists in the last 9 years and is currentlycompleting EMDR with her current therapist. Past hospitalizations: Her most recent hospitalization was 5 years ago [place] in [place] for the same feeling she is experiencing [...] equal bilaterally. CN XII: Tongue protrusion midline [facility] Medical History (Updated 11/17/22 @ 10:42 [...] signed by Eduardo Monk MD> 11/17/22 1248 [facility] Work Phone: 1(695) 770-670103-23-2023 NoteCONSULTATION CONSULTATION DATE: 06/26/2022 To: Nurse Carrion [...] L5-S1 facet joint injection under fluoroscopic guidance.[id number] NotePROCEDURE: XR SHOULDER RT 2V or > [...] authenticated by: KINGSLEY CLEMENTS Date: 2022-05-09 09:21[facility]01-23-2023 NotePROCEDURE: XR WRIST LT MIN 3 [...] authenticated by: KINGSLEY CLEMENTS Date: 2022-04-28 13:31[facility]12-29-2022 NoteCONSULTATION CONSULTATION DATE: 04/03/2022 HISTORY OF [...] her in three months, unless otherwise indicated.[facility] [id number] NoteCONSULTATION CONSULTATION DATE: 01/02/2022 This is a [...] was sent by Dr. Macedo to [facility] in [place] for the compounded cream. She needs a [...] in three months' time unless otherwise indicated.[facility] [id number] NotePROCEDURE: XR ANKLE RT MIN 3 VIEWS, [...] authenticated by: KINGSLEY CLEMENTS Date: 2022-01-01 13:11[facility]09-28-2022 NotePROCEDURE: XR ANKLE RT MIN 3 [...] authenticated by: KINGSLEY CLEMENTS Date: 2022-01-01 13:11[facility]08-18-2022 NotePROCEDURE: XR FOOT RT MIN 3 VIEWS HISTORY: Pain in right foot , chronic COMPARISON: XR foot right 2020 FINDINGS: BONES:No fracture, dislocation, bone lesion. Small calcaneal degenerative enthesophytes. SOFT TISSUES:No visible soft tissue swelling. EFFUSION:None visible. OTHER: Negative. IMPRESSION: 1. No acute bone abnormality or significant degenerative joint disease. Electronically authenticated by: KINGSLEY CLEMENTS Date: 2021-11-21 16:13[facility]06-30-2022 NoteCONSULTATION CONSULTATION DATE: 10/03/2021 This is [...] patient agrees with the plan of care. [facility] Signed and Approved by: ZELDA MCDANIEL . 10/10/2021 10:22:00[facility]Eval[facility]* Diagnosis Onset Date Resolution Status Allergies acute Bipolar 2 disorder acute Hypertension acute Morbid obesity with BMI of 45.0-49.9, adult acute OSMANY (obstructive sleep apnea) acute Restless legs syndrome acute [facility] Work Phone: Evaluation noteNo InformationNort Rexter Other Evaluation noteNo assessment information available [facility] Work Phone: Evaluation note* Diagnosis Encounter [...] wall, initial encounter documented in this encounter [facility] HealthcareEvaluation note* Diagnosis Acute cystitis with hematuria- Primary documented in this encounter [facility] HealthcareEvaluation note* Diagnosis Left foot pain- Primary Pain in soft tissues of limb Primary hypertension (CMS/HCC) Unspecified essential hypertension Class 3 severe obesity due to excess calories without serious comorbidity with body mass index (BMI) of 45.0 to 49.9 in adult ([facility]) Encounter for annual wellness visit (AWV) in Medicare patient- Primary OSMANY (obstructive sleep apnea) Obstructive sleep apnea (adult) (pediatric) Chronic pain disorder Chronic pain syndrome Gastroesophageal reflux disease, unspecified whether esophagitis present Overactive bladder Hypertonicity of bladder Lower extremity edema Edema Pre-diabetes Other abnormal glucose Morbid obesity ([facility]) Morbid obesity Yeast infection of the skin Candidiasis of skin and nails Tobacco dependence Tobacco use disorder Mood disorder ([facility]) Unspecified episodic mood disorder Primary hypertension ([facility]) Unspecified essential hypertension Left hip pain Pain in joint, pelvic region and thigh Open wound of anterior abdominal wall, initial encounter Primary hypertension ([facility])- Primary Unspecified essential hypertension Yeast infection of the skin Candidiasis of skin and nails Morbid obesity ([facility]) Morbid obesity Primary hypertension ([facility])- Primary Unspecified essential hypertension Encounter for screening mammogram for malignant neoplasm of breast Gastroesophageal reflux disease, unspecified whether esophagitis present Acute gout of right foot, unspecified cause Osteoporosis, unspecified osteoporosis type, unspecified pathological fracture presence ([facility]) Morbid obesity ([facility]) Morbid obesity Pre-diabetes Other abnormal glucose Anemia, unspecified type Vitamin deficiency Unspecified vitamin deficiency Post-viral cough syndrome Primary hypertension ([facility])- Primary Unspecified essential hypertension Allergic rhinitis, unspecified Acute cough Morbid obesity ([facility]) Morbid obesity Former cigarette smoker Personal history of tobacco use, presenting hazards to health Toxic metabolic encephalopathy- Primary Hemiparesis, right ([facility]) Unspecified hemiplegia affecting unspecified side Acute respiratory failure with hypoxia ([facility]) Heart murmur Undiagnosed cardiac murmurs Primary hypertension ([facility]) Unspecified essential hypertension Morbid obesity ([facility]) Morbid obesity Bipolar disorder with severe depression ([facility]) Slurred speech Other speech disturbance Bilateral lower extremity edema- Primary Primary hypertension ([facility]) Unspecified essential hypertension Lower extremity edema Edema Essential (primary) hypertension ([facility]) Unspecified essential hypertension Gastro-esophageal reflux disease without esophagitis Allergic rhinitis, unspecified Bilateral lower extremity edema- Primary Morbid (severe) obesity due to excess calories ([facility]) Body mass index (BMI) 45.0-49.9, adult ([facility]) Pre-diabetes Other abnormal glucose Bilateral lower extremity edema- Primary Essential (primary) hypertension (CMS/HCC) Unspecified essential hypertension Allergic rhinitis, unspecified OSMANY (obstructive sleep apnea) Obstructive sleep apnea (adult) (pediatric) Primary hypertension ([facility]/HCC) Unspecified essential hypertension Morbid obesity ([facility]) Morbid obesity Acute cystitis without hematuria- Primary Tobacco dependence Tobacco use disorder Needs flu shot Need for prophylactic vaccination and inoculation against influenza Morbid obesity (CMS/HCC) Morbid obesity documented in this encounter [facility] HealthcareEvaluation note* Diagnosis Left foot pain- Primary Pain in soft tissues of limb Primary hypertension ([facility]) Unspecified essential hypertension Class 3 severe obesity due to excess calories without serious comorbidity with body mass index (BMI) of 45.0 to 49.9 in adult ([facility]) Encounter for annual wellness visit (AWV) in Medicare patient- Primary OSMANY (obstructive sleep apnea) Obstructive sleep apnea (adult) (pediatric) Chronic pain disorder Chronic pain syndrome Gastroesophageal reflux disease, unspecified whether esophagitis present Overactive bladder Hypertonicity of bladder Lower extremity edema Edema Pre-diabetes Other abnormal glucose Morbid obesity ([facility]) Morbid obesity Yeast infection of the skin Candidiasis of skin and nails Tobacco dependence Tobacco use disorder Mood disorder (CMS/HCC) Unspecified episodic mood disorder Primary hypertension ([facility]) Unspecified essential hypertension Left hip pain Pain in joint, pelvic region and thigh Open wound of anterior abdominal wall, initial encounter Primary hypertension ([facility])- Primary Unspecified essential hypertension Yeast infection of the skin Candidiasis of skin and nails Morbid obesity ([facility]) Morbid obesity Primary hypertension ([facility]/HCC)- Primary Unspecified essential hypertension Encounter for screening mammogram for malignant neoplasm of breast Gastroesophageal reflux disease, unspecified whether esophagitis present Acute gout of right foot, unspecified cause Osteoporosis, unspecified osteoporosis type, unspecified pathological fracture presence ([facility]) Morbid obesity ([facility]) Morbid obesity Pre-diabetes Other abnormal glucose Anemia, unspecified type Vitamin deficiency Unspecified vitamin deficiency Post-viral cough syndrome Primary hypertension (CMS/HCC)- Primary Unspecified essential hypertension Allergic rhinitis, unspecified Acute cough Morbid obesity ([facility]) Morbid obesity Former cigarette smoker Personal history of tobacco use, presenting hazards to health Toxic metabolic encephalopathy- Primary Hemiparesis, right ([facility]) Unspecified hemiplegia affecting unspecified side Acute respiratory failure with hypoxia ([facility]) Heart murmur Undiagnosed cardiac murmurs Primary hypertension ([facility]) Unspecified essential hypertension Morbid obesity ([facility]) Morbid obesity Bipolar disorder with severe depression ([facility]) Slurred speech Other speech disturbance Bilateral lower extremity edema- Primary Primary hypertension ([facility]) Unspecified essential hypertension Lower extremity edema Edema Essential (primary) hypertension ([facility]) Unspecified essential hypertension Gastro-esophageal reflux disease without esophagitis Allergic rhinitis, unspecified Bilateral lower extremity edema- Primary Morbid (severe) obesity due to excess calories ([facility]) Body mass index (BMI) 45.0-49.9, adult ([facility]) Pre-diabetes Other abnormal glucose Bilateral lower extremity edema- Primary Essential (primary) hypertension ([facility]) Unspecified essential hypertension Allergic rhinitis, unspecified OSMANY (obstructive sleep apnea) Obstructive sleep apnea (adult) (pediatric) Primary hypertension ([facility]) Unspecified essential hypertension Morbid obesity ([facility]) Morbid obesity Acute cystitis without hematuria- Primary Tobacco dependence Tobacco use disorder Needs flu shot Need for prophylactic vaccination and inoculation against influenza Morbid obesity ([facility]) Morbid obesity Restless leg Restless legs syndrome (RLS) documented in this encounter [facility] HealthcareEvaluation note* Diagnosis Left foot pain- Primary Pain in soft tissues of limb Primary hypertension ([facility]) Unspecified essential hypertension Class 3 severe obesity due to excess calories without serious comorbidity with body mass index (BMI) of 45.0 to 49.9 in adult ([facility]) Encounter for annual wellness visit (AWV) in Medicare patient- Primary OSMANY (obstructive sleep apnea) Obstructive sleep apnea (adult) (pediatric) Chronic pain disorder Chronic pain syndrome Gastroesophageal reflux disease, unspecified whether esophagitis present Overactive bladder Hypertonicity of bladder Lower extremity edema Edema Pre-diabetes Other abnormal glucose Morbid obesity ([facility]) Morbid obesity Yeast infection of the skin Candidiasis of skin and nails Tobacco dependence Tobacco use disorder Mood disorder ([facility]) Unspecified episodic mood disorder Primary hypertension ([facility]) Unspecified essential hypertension Left hip pain Pain in joint, pelvic region and thigh Open wound of anterior abdominal wall, initial encounter Primary hypertension ([facility])- Primary Unspecified essential hypertension Yeast infection of the skin Candidiasis of skin and nails Morbid obesity ([facility]) Morbid obesity Primary hypertension ([facility])- Primary Unspecified essential hypertension Encounter for screening mammogram for malignant neoplasm of breast Gastroesophageal reflux disease, unspecified whether esophagitis present Acute gout of right foot, unspecified cause Osteoporosis, unspecified osteoporosis type, unspecified pathological fracture presence ([facility]) Morbid obesity ([facility]) Morbid obesity Pre-diabetes Other abnormal glucose Anemia, unspecified type Vitamin deficiency Unspecified vitamin deficiency Post-viral cough syndrome Primary hypertension ([facility])- Primary Unspecified essential hypertension Allergic rhinitis, unspecified Acute cough Morbid obesity ([facility]) Morbid obesity Former cigarette smoker Personal history of tobacco use, presenting hazards to health Toxic metabolic encephalopathy- Primary Hemiparesis, right ([facility]) Unspecified hemiplegia affecting unspecified side Acute respiratory failure with hypoxia ([facility]) Heart murmur Undiagnosed cardiac murmurs Primary hypertension ([facility]) Unspecified essential hypertension Morbid obesity ([facility]) Morbid obesity Bipolar disorder with severe depression ([facility]) Slurred speech Other speech disturbance Bilateral lower extremity edema- Primary Primary hypertension ([facility]) Unspecified essential hypertension Lower extremity edema Edema Essential (primary) hypertension ([facility]) Unspecified essential hypertension Gastro-esophageal reflux disease without esophagitis Allergic rhinitis, unspecified Bilateral lower extremity edema- Primary Morbid (severe) obesity due to excess calories ([facility]) Body mass index (BMI) 45.0-49.9, adult ([facility]) Pre-diabetes Other abnormal glucose Bilateral lower extremity edema- Primary Essential (primary) hypertension ([facility]) Unspecified essential hypertension Allergic rhinitis, unspecified OSMANY (obstructive sleep apnea) Obstructive sleep apnea (adult) (pediatric) Primary hypertension ([facility]) Unspecified essential hypertension Morbid obesity ([facility]) Morbid obesity Acute cystitis without hematuria- Primary Tobacco dependence Tobacco use disorder Needs flu shot Need for prophylactic vaccination and inoculation against influenza Morbid obesity ([facility]) Morbid obesity Well woman exam with routine gynecological exam- Primary Routine gynecological examination Morbid obesity ([facility]) Morbid obesity documented in this encounter [facility] HealthcareEvaluation note* Diagnosis Left foot pain- Primary Pain in soft tissues of limb Primary hypertension ([facility]) Unspecified essential hypertension Class 3 severe obesity due to excess calories without serious comorbidity with body mass index (BMI) of 45.0 to 49.9 in adult ([facility]) Encounter for annual wellness visit (AWV) in [...] Tobacco dependence Tobacco use disorder Mood disorder ([facility]) Unspecified episodic mood disorder Primary hypertension ([facility]) Unspecified essential hypertension Left hip pain Pain in joint, pelvic region and thigh Open wound of anterior abdominal wall, initial encounter Primary hypertension ([facility])- Primary Unspecified essential hypertension Yeast infection of the skin Candidiasis of skin and nails Morbid obesity ([facility]) Morbid obesity Primary hypertension ([facility])- Primary Unspecified essential hypertension Encounter for screening mammogram for malignant neoplasm of breast Gastroesophageal reflux disease, unspecified whether esophagitis present Acute gout of right foot, unspecified cause Osteoporosis, unspecified osteoporosis type, unspecified pathological fracture presence ([facility]) Morbid obesity ([facility]) Morbid obesity Pre-diabetes Other abnormal glucose Anemia, unspecified type Vitamin deficiency Unspecified vitamin deficiency Post-viral cough syndrome Primary hypertension ([facility])- Primary Unspecified essential hypertension Allergic rhinitis, unspecified Acute cough Morbid obesity ([facility]) Morbid obesity Former cigarette smoker Personal history of tobacco use, presenting hazards to health Toxic metabolic encephalopathy- Primary Hemiparesis, right ([facility]) Unspecified hemiplegia affecting unspecified side Acute respiratory failure with hypoxia ([facility]) Heart murmur Undiagnosed cardiac murmurs Primary hypertension ([facility]) Unspecified essential hypertension Morbid obesity ([facility]) Morbid obesity Bipolar disorder with severe depression ([facility]) Slurred speech Other speech disturbance Bilateral lower extremity edema- Primary Primary hypertension ([facility]) Unspecified essential hypertension Lower extremity edema Edema Essential (primary) hypertension ([facility]) Unspecified essential hypertension Gastro-esophageal reflux disease without esophagitis Allergic rhinitis, unspecified Bilateral lower extremity edema- Primary Morbid (severe) obesity due to excess calories ([facility]) Body mass index (BMI) 45.0-49.9, adult ([facility]) Pre-diabetes Other abnormal glucose Bilateral lower extremity edema- Primary Essential (primary) hypertension ([facility]) Unspecified essential hypertension Allergic rhinitis, unspecified OSMANY (obstructive sleep apnea) Obstructive sleep apnea (adult) (pediatric) Primary hypertension ([facility]) Unspecified essential hypertension Morbid obesity ([facility]) Morbid obesity Acute cystitis without hematuria- Primary Tobacco dependence Tobacco use disorder Needs flu shot Need for prophylactic vaccination and inoculation against influenza Morbid obesity ([facility]) Morbid obesity Well woman exam with routine gynecological exam- Primary Routine gynecological examination Morbid obesity (CMS/HCC) Morbid obesity Essential (primary) hypertension ([facility]) Unspecified essential hypertension Allergic rhinitis, unspecified documented in this encounter [facility] HealthcareEvaluation note* Diagnosis Left foot pain- Primary Pain in soft tissues of limb Primary hypertension ([facility]) Unspecified essential hypertension Class 3 severe obesity due to excess calories without serious comorbidity with body mass index (BMI) of 45.0 to 49.9 in adult ([facility]) Encounter for annual wellness visit (AWV) in Medicare patient- Primary OSMANY (obstructive sleep apnea) Obstructive sleep apnea (adult) (pediatric) Chronic pain disorder Chronic pain syndrome Gastroesophageal reflux disease, unspecified whether esophagitis present Overactive bladder Hypertonicity of bladder Lower extremity edema Edema Pre-diabetes Other abnormal glucose Morbid obesity ([facility]) Morbid obesity Yeast infection of the skin Candidiasis of skin and nails Tobacco dependence Tobacco use disorder Mood disorder ([facility]) Unspecified episodic mood disorder Primary hypertension ([facility]) Unspecified essential hypertension Left hip pain Pain in joint, pelvic region and thigh Open wound of anterior abdominal wall, initial encounter Primary hypertension ([facility])- Primary Unspecified essential hypertension Yeast infection of the skin Candidiasis of skin and nails Morbid obesity ([facility]) Morbid obesity Primary hypertension ([facility])- Primary Unspecified essential hypertension Encounter for screening mammogram for malignant neoplasm of breast Gastroesophageal reflux disease, unspecified whether esophagitis present Acute gout of right foot, unspecified cause Osteoporosis, unspecified osteoporosis type, unspecified pathological fracture presence ([facility]) Morbid obesity ([facility]) Morbid obesity Pre-diabetes Other abnormal glucose Anemia, unspecified type Vitamin deficiency Unspecified vitamin deficiency Post-viral cough syndrome Primary hypertension ([facility])- Primary Unspecified essential hypertension Allergic rhinitis, unspecified Acute cough Morbid obesity ([facility]) Morbid obesity Former cigarette smoker Personal history of tobacco use, presenting hazards to health Toxic metabolic encephalopathy- Primary Hemiparesis, right ([facility]) Unspecified hemiplegia affecting unspecified side Acute respiratory failure with hypoxia ([facility]) Heart murmur Undiagnosed cardiac murmurs Primary hypertension ([facility]) Unspecified essential hypertension Morbid obesity ([facility]) Morbid obesity Bipolar disorder with severe depression ([facility]) Slurred speech Other speech disturbance Bilateral lower extremity edema- Primary Primary hypertension (CMS/HCC) Unspecified essential hypertension Lower extremity edema Edema Essential (primary) hypertension ([facility]) Unspecified essential hypertension Gastro-esophageal reflux disease without esophagitis Allergic rhinitis, unspecified Bilateral lower extremity edema- Primary Morbid (severe) obesity due to excess calories ([facility]) Body mass index (BMI) 45.0-49.9, adult ([facility]) Pre-diabetes Other abnormal glucose Bilateral lower extremity edema- Primary Essential (primary) hypertension ([facility]) Unspecified essential hypertension Allergic rhinitis, unspecified OSMANY (obstructive sleep apnea) Obstructive sleep apnea (adult) (pediatric) Primary hypertension ([facility]) Unspecified essential hypertension Morbid obesity ([facility]) Morbid obesity Acute cystitis without hematuria- Primary Tobacco dependence Tobacco use disorder Needs flu shot Need for prophylactic vaccination and inoculation against influenza Morbid obesity ([facility]) Morbid obesity Well woman exam with routine gynecological exam- Primary Routine gynecological examination Morbid obesity ([facility]) Morbid obesity Allergic rhinitis, unspecified documented in this encounter [facility] HealthcareEvaluation note* Diagnosis Left foot pain- Primary Pain in soft tissues of limb Primary hypertension ([facility]) Unspecified essential hypertension Class 3 severe obesity due to excess calories without serious comorbidity with body mass index (BMI) of 45.0 to 49.9 in adult ([facility]) Encounter for annual wellness visit (AWV) in Medicare patient- Primary OSMANY (obstructive sleep apnea) Obstructive sleep apnea (adult) (pediatric) Chronic pain disorder Chronic pain syndrome Gastroesophageal reflux disease, unspecified whether esophagitis present Overactive bladder Hypertonicity of bladder Lower extremity edema Edema Pre-diabetes Other abnormal glucose Morbid obesity ([facility]) Morbid obesity Yeast infection of the skin Candidiasis of skin and nails Tobacco dependence Tobacco use disorder Mood disorder ([facility]) Unspecified episodic mood disorder Primary hypertension ([facility]) Unspecified essential hypertension Left hip pain Pain in joint, pelvic region and thigh Open wound of anterior abdominal wall, initial encounter Primary hypertension ([facility])- Primary Unspecified essential hypertension Yeast infection of the skin Candidiasis of skin and nails Morbid obesity ([facility]) Morbid obesity Primary hypertension ([facility])- Primary Unspecified essential hypertension Encounter for screening mammogram for malignant neoplasm of breast Gastroesophageal reflux disease, unspecified whether esophagitis present Acute gout of right foot, unspecified cause Osteoporosis, unspecified osteoporosis type, unspecified pathological fracture presence ([facility]) Morbid obesity ([facility]) Morbid obesity Pre-diabetes Other abnormal glucose Anemia, unspecified type Vitamin deficiency Unspecified vitamin deficiency Post-viral cough syndrome Primary hypertension ([facility])- Primary Unspecified essential hypertension Allergic rhinitis, unspecified Acute cough Morbid obesity ([facility]) Morbid obesity Former cigarette smoker Personal history of tobacco use, presenting hazards to health Toxic metabolic encephalopathy- Primary Hemiparesis, right ([facility]) Unspecified hemiplegia affecting unspecified side Acute respiratory failure with hypoxia ([facility]) Heart murmur Undiagnosed cardiac murmurs Primary hypertension ([facility] [facility]) Unspecified essential hypertension Morbid obesity ([facility]) Morbid obesity Bipolar disorder with severe depression ([facility]) Slurred speech Other speech disturbance Bilateral lower extremity edema- Primary Primary hypertension ([facility]) Unspecified essential hypertension Lower extremity edema Edema Essential (primary) hypertension ([facility]) Unspecified essential hypertension Gastro-esophageal reflux disease without esophagitis Allergic rhinitis, unspecified Bilateral lower extremity edema- Primary Morbid (severe) obesity due to excess calories ([facility]) Body mass index (BMI) 45.0-49.9, adult ([facility]) Pre-diabetes Other abnormal glucose Bilateral lower extremity edema- Primary Essential (primary) hypertension ([facility]) Unspecified essential hypertension Allergic rhinitis, unspecified OSMANY (obstructive sleep apnea) Obstructive sleep apnea (adult) (pediatric) Primary hypertension ([facility]) Unspecified essential hypertension Morbid obesity ([facility]) Morbid obesity Acute cystitis without hematuria- Primary Tobacco dependence Tobacco use disorder Needs flu shot Need for prophylactic vaccination and inoculation against influenza Morbid obesity ([facility]) Morbid obesity Well woman exam with routine gynecological exam- Primary Routine gynecological examination Morbid obesity ([facility]) Morbid obesity Yeast infection of the skin Candidiasis of skin and nails documented in [facility] encounter [facility] Diagnosis Left foot pain- Primary Pain in soft tissues of limb Primary hypertension ([facility]) Unspecified essential hypertension Class 3 severe obesity due to excess calories without serious comorbidity with body mass index (BMI) of 45.0 to 49.9 in adult ([facility]) Encounter for annual wellness visit (AWV) in Medicare patient- Primary OSMANY (obstructive sleep apnea) Obstructive sleep apnea (adult) (pediatric) Chronic pain disorder Chronic pain syndrome Gastroesophageal reflux disease, unspecified whether esophagitis present Overactive bladder Hypertonicity of bladder Lower extremity edema Edema Pre-diabetes Other abnormal glucose Morbid obesity ([facility]) Morbid obesity Yeast infection of the skin Candidiasis of skin and nails Tobacco dependence Tobacco use disorder Mood disorder ([facility]) Unspecified episodic mood disorder Primary hypertension ([facility]) Unspecified essential hypertension Left hip pain Pain in joint, pelvic region and thigh Open wound of anterior abdominal wall, initial encounter Primary hypertension ([facility])- Primary Unspecified essential hypertension Yeast infection of the skin Candidiasis of skin and nails Morbid obesity ([facility]) Morbid obesity Primary hypertension ([facility])- Primary Unspecified essential hypertension Encounter for screening mammogram for malignant neoplasm of breast Gastroesophageal reflux disease, unspecified whether esophagitis present Acute gout of right foot, unspecified cause Osteoporosis, unspecified osteoporosis type, unspecified pathological fracture presence ([facility]) Morbid obesity ([facility]) Morbid obesity Pre-diabetes Other abnormal glucose Anemia, unspecified type Vitamin deficiency Unspecified vitamin deficiency Post-viral cough syndrome Primary hypertension ([facility])- Primary Unspecified essential hypertension Allergic rhinitis, unspecified Acute cough Morbid obesity ([facility]) Morbid obesity Former cigarette smoker Personal history of tobacco use, presenting hazards to health Toxic metabolic encephalopathy- Primary Hemiparesis, right ([facility]) Unspecified hemiplegia affecting unspecified side Acute respiratory failure with hypoxia ([facility]) Heart murmur Undiagnosed cardiac murmurs Primary hypertension ([facility]) Unspecified essential hypertension Morbid obesity ([facility]) Morbid obesity Bipolar disorder with severe depression ([facility]) Slurred speech Other speech disturbance Bilateral lower extremity edema- Primary Primary hypertension ([facility]) Unspecified essential hypertension Lower extremity edema Edema Essential (primary) hypertension ([facility]) Unspecified essential hypertension Gastro-esophageal reflux disease without esophagitis Allergic rhinitis, unspecified Bilateral lower extremity edema- Primary Morbid (severe) obesity due to excess calories ([facility]) Body mass index (BMI) 45.0-49.9, adult ([facility]) Pre-diabetes Other abnormal glucose Bilateral lower extremity edema- Primary Essential (primary) hypertension ([facility]) Unspecified essential hypertension Allergic rhinitis, unspecified OSMANY (obstructive sleep apnea) Obstructive sleep apnea (adult) (pediatric) Primary hypertension ([facility]) Unspecified essential hypertension Morbid obesity ([facility]) Morbid obesity Acute cystitis without hematuria- Primary Tobacco dependence Tobacco use disorder Needs flu shot Need for prophylactic vaccination and inoculation against influenza Morbid obesity ([facility]) Morbid obesity Well woman exam with routine gynecological exam- Primary Routine gynecological examination Morbid obesity ([facility]) Morbid obesity Metabolic encephalopathy- Primary OSMANY (obstructive sleep apnea) Obstructive sleep apnea (adult) (pediatric) Restless leg Restless legs syndrome (RLS) 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 ([facility]) Degeneration of intervertebral disc of lumbar region with discogenic back pain and lower extremity pain Memory change Memory loss documented in this encounter [facility]* Diagnosis Left foot pain- Primary Pain in soft tissues of limb Primary hypertension ([facility]) Unspecified essential hypertension Class 3 severe obesity due to excess calories without serious comorbidity with body mass index (BMI) of 45.0 to 49.9 in adult ([facility]) Encounter for annual wellness visit [...] Tobacco dependence Tobacco use disorder Mood disorder ([facility]) Unspecified episodic mood disorder Primary hypertension ([facility]) Unspecified essential hypertension Left hip pain Pain in joint, pelvic region and thigh Open wound of anterior abdominal wall, initial encounter Primary hypertension ([facility])- Primary Unspecified essential hypertension Yeast infection of the skin Candidiasis of skin and nails Morbid obesity (CMS/HCC) Morbid obesity Primary hypertension ([facility])- Primary Unspecified essential hypertension Encounter for screening mammogram for malignant neoplasm of breast Gastroesophageal reflux disease, unspecified whether esophagitis present Acute gout of right foot, unspecified cause Osteoporosis, unspecified osteoporosis type, unspecified pathological fracture presence ([facility]) Morbid obesity (CMS/HCC) Morbid obesity Pre-diabetes Other abnormal glucose Anemia, unspecified type Vitamin deficiency Unspecified vitamin deficiency Post-viral cough syndrome Primary hypertension (CMS/HCC)- Primary Unspecified essential hypertension Allergic rhinitis, unspecified Acute cough Morbid obesity (CMS/HCC) Morbid obesity Former cigarette smoker Personal history of tobacco use, presenting hazards to health Toxic metabolic encephalopathy- Primary Hemiparesis, right ([facility]) Unspecified hemiplegia affecting unspecified side Acute respiratory failure with hypoxia ([facility]) Heart murmur Undiagnosed cardiac murmurs Primary hypertension ([facility]/HCC) Unspecified essential hypertension Morbid obesity (CMS/HCC) Morbid obesity Bipolar disorder with severe depression ([facility]) Slurred speech Other speech disturbance Bilateral lower extremity edema- Primary Primary hypertension ([facility]) Unspecified essential hypertension Lower extremity edema Edema Essential (primary) hypertension ([facility]) Unspecified essential hypertension Gastro-esophageal reflux disease without esophagitis Allergic rhinitis, unspecified Bilateral lower extremity edema- Primary Morbid (severe) obesity due to excess calories ([facility]) Body mass index (BMI) 45.0-49.9, adult ([facility]) Pre-diabetes Other abnormal glucose Bilateral lower extremity edema- Primary Essential (primary) hypertension ([facility]) Unspecified essential hypertension Allergic rhinitis, unspecified OSMANY (obstructive sleep apnea) Obstructive sleep apnea (adult) (pediatric) Primary hypertension ([facility]) Unspecified essential hypertension Morbid obesity ([facility]) Morbid obesity Acute cystitis without hematuria- Primary Tobacco dependence Tobacco use disorder Needs flu shot Need for prophylactic vaccination and inoculation against influenza Morbid obesity ([facility]) Morbid obesity Well woman exam with routine gynecological exam- Primary Routine gynecological examination Morbid obesity ([facility]) Morbid obesity Altered mental status, unspecified altered mental status type- Primary Restless leg Restless legs syndrome (RLS) 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[facility]) OSMANY (obstructive sleep apnea) Obstructive sleep apnea (adult) (pediatric) documented in [facility]* Diagnosis Left foot pain- Primary Pain in soft tissues of limb Primary hypertension ([facility]) Unspecified essential hypertension Class 3 severe obesity due to excess calories without serious comorbidity with body mass index (BMI) of 45.0 to 49.9 in adult ([facility]) Encounter for annual wellness visit (AWV) in Medicare patient- Primary OSMANY (obstructive sleep apnea) Obstructive sleep apnea (adult) (pediatric) Chronic pain disorder Chronic pain syndrome Gastroesophageal reflux disease, unspecified whether esophagitis present Overactive bladder Hypertonicity of bladder Lower extremity edema Edema Pre-diabetes Other abnormal glucose Morbid obesity ([facility]) Morbid obesity Yeast infection of the skin Candidiasis of skin and nails Tobacco dependence Tobacco use disorder Mood disorder ([facility]) Unspecified episodic mood disorder Primary hypertension ([facility]) Unspecified essential hypertension Left hip pain Pain in joint, pelvic region and thigh Open wound of anterior abdominal wall, initial encounter Primary hypertension ([facility])- Primary Unspecified essential hypertension Yeast infection of the skin Candidiasis of skin and nails Morbid obesity ([facility]) Morbid obesity Primary hypertension ([facility])- Primary Unspecified essential hypertension Encounter for screening mammogram for malignant neoplasm of breast Gastroesophageal reflux disease, unspecified whether esophagitis present Acute gout of right foot, unspecified cause Osteoporosis, unspecified osteoporosis type, unspecified pathological fracture presence ([facility]) Morbid obesity ([facility]) Morbid obesity Pre-diabetes Other abnormal glucose Anemia, unspecified type Vitamin deficiency Unspecified vitamin deficiency Post-viral cough syndrome Primary hypertension ([facility])- Primary Unspecified essential hypertension Allergic rhinitis, unspecified Acute cough Morbid obesity ([facility]) Morbid obesity Former cigarette smoker Personal history of tobacco use, presenting hazards to health Toxic metabolic encephalopathy- Primary Hemiparesis, right ([facility]) Unspecified hemiplegia affecting unspecified side Acute respiratory failure with hypoxia ([facility]) Heart murmur Undiagnosed cardiac murmurs Primary hypertension ([facility]) Unspecified essential hypertension Morbid obesity ([facility]) Morbid obesity Bipolar disorder with severe depression ([facility]) Slurred speech Other speech disturbance Bilateral lower extremity edema- Primary Primary hypertension ([facility]) Unspecified essential hypertension Lower extremity edema Edema Essential (primary) hypertension ([facility]) Unspecified essential hypertension Gastro-esophageal reflux disease without esophagitis Allergic rhinitis, unspecified Bilateral lower extremity edema- Primary Morbid (severe) obesity due to excess calories ([facility]) Body mass index (BMI) 45.0-49.9, adult ([facility]) Pre-diabetes Other abnormal glucose Bilateral lower extremity edema- Primary Essential (primary) hypertension ([facility]) Unspecified essential hypertension Allergic rhinitis, unspecified OSMANY (obstructive sleep apnea) Obstructive sleep apnea (adult) (pediatric) Primary hypertension ([facility]) Unspecified essential hypertension Morbid obesity ([facility]) Morbid obesity Acute cystitis without hematuria- Primary Tobacco dependence Tobacco use disorder Needs flu shot Need for prophylactic vaccination and inoculation against influenza Morbid obesity ([facility]) Morbid obesity Well woman exam with routine gynecological exam- Primary Routine gynecological examination Morbid obesity ([facility]) Morbid obesity Altered mental status, unspecified altered mental status type- Primary Memory change Memory loss Concentration deficit 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 ([facility]) PTSD (post-traumatic stress disorder) ([facility]) Posttraumatic stress disorder Bipolar affective disorder, remission status unspecified ([facility]) Family history of dementia Family [...] Edema Pre-diabetes Other abnormal glucose Morbid obesity ([facility]) Morbid obesity Yeast infection of the skin Candidiasis of skin and nails Tobacco dependence Tobacco use disorder Mood disorder ([facility]) Unspecified episodic mood disorder Primary hypertension ([facility]) Unspecified essential hypertension Left hip pain Pain in joint, pelvic region and thigh Open wound of anterior abdominal wall, initial encounter Primary hypertension ([facility])- Primary Unspecified essential hypertension Yeast infection of the skin Candidiasis of skin and nails Morbid obesity ([facility]) Morbid obesity Primary hypertension ([facility])- Primary Unspecified essential hypertension Allergic rhinitis, unspecified Acute cough Morbid obesity ([facility]) Morbid obesity Former cigarette smoker Personal history of tobacco use, presenting hazards to health Toxic metabolic encephalopathy- Primary Hemiparesis, right ([facility]) Unspecified hemiplegia affecting unspecified side Acute respiratory failure with hypoxia ([facility]) Heart murmur Undiagnosed cardiac murmurs Primary hypertension ([facility]) Unspecified essential hypertension Morbid obesity ([facility]) Morbid obesity Bipolar disorder with severe depression ([facility]) Slurred speech Other speech disturbance Bilateral lower extremity edema- Primary Primary hypertension ([facility]) Unspecified essential hypertension Lower extremity edema Edema Essential (primary) hypertension ([facility]) Unspecified essential hypertension Gastro-esophageal reflux disease without esophagitis Allergic rhinitis, unspecified Bilateral lower extremity edema- Primary Morbid (severe) obesity due to excess calories ([facility]) Body mass index (BMI) 45.0-49.9, adult ([facility]) Pre-diabetes Other abnormal glucose Bilateral lower extremity edema- Primary Essential (primary) hypertension ([facility]) Unspecified essential hypertension Allergic rhinitis, unspecified OSMANY (obstructive sleep apnea) Obstructive sleep apnea (adult) (pediatric) Primary hypertension ([facility]) Unspecified essential hypertension Morbid obesity ([facility]) Morbid obesity Acute cystitis without [...] (CMS/HCC) Unspecified episodic mood disorder Primary hypertension ([facility]) Unspecified essential hypertension Left hip pain Pain in joint, pelvic region and thigh Open wound of anterior abdominal wall, initial encounter Primary hypertension ([facility])- Primary Unspecified essential hypertension Yeast infection of the skin Candidiasis of skin and nails Morbid obesity ([facility]) Morbid obesity Primary hypertension ([facility])- Primary Unspecified essential hypertension Allergic rhinitis, unspecified Acute cough Morbid obesity ([facility]) Morbid obesity Former cigarette smoker Personal history of tobacco use, presenting hazards to health Toxic metabolic encephalopathy- Primary Hemiparesis, right ([facility]) Unspecified hemiplegia affecting unspecified side Acute respiratory failure with hypoxia ([facility]) Heart murmur Undiagnosed cardiac murmurs Primary hypertension ([facility]) Unspecified essential hypertension Morbid obesity ([facility]) Morbid obesity Bipolar disorder with severe depression ([facility]) Slurred speech Other speech disturbance Bilateral lower extremity edema- Primary Primary hypertension ([facility]) Unspecified essential hypertension Lower extremity edema Edema Essential (primary) hypertension ([facility]) Unspecified essential hypertension Gastro-esophageal reflux disease without esophagitis Allergic rhinitis, unspecified Bilateral lower extremity edema- Primary Morbid (severe) obesity due to excess calories ([facility]) Body mass index (BMI) 45.0-49.9, adult ([facility]) Pre-diabetes Other abnormal glucose Bilateral [...] Obstructive sleep apnea (adult) (pediatric) Morbid obesity ([facility]CC) Morbid obesity Bilateral lower extremity edema Tobacco dependence Tobacco use disorder Bipolar disorder with severe depression ([facility]) At risk for polypharmacy Anxiety Anxiety state, unspecified Primary hypertension ([facility]CC) Unspecified essential hypertension Right bundle branch block (RBBB) determined by electrocardiography documented in [facility] Diagnosis Yeast infection of the skin- Primary Candidiasis of skin and nails documented in this encounter [facility]* Diagnosis 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[facility])- Primary Restless leg Restless legs syndrome (RLS) Metabolic encephalopathy documented in this encounter [facility]* Diagnosis OSMANY (obstructive sleep apnea)- Primary Obstructive sleep apnea (adult) (pediatric) Restless leg Restless legs syndrome (RLS) documented in this [facility]* Diagnosis Bilateral lower extremity edema- Primary Essential (primary) hypertension ([facility]) Unspecified essential hypertension Allergic rhinitis, unspecified OSMANY (obstructive sleep apnea) Obstructive sleep apnea (adult) (pediatric) Primary hypertension ([facility]) Unspecified essential hypertension Morbid obesity ([facility]) Morbid obesity documented in this [...] Edema Pre-diabetes Other abnormal glucose Morbid obesity ([facility]CC) Morbid obesity Yeast infection of the skin Candidiasis of skin and nails Tobacco dependence Tobacco use disorder Mood disorder ([facility]CC) Unspecified episodic mood disorder Primary hypertension ([facility]) Unspecified essential hypertension Left hip pain Pain in joint, pelvic region and thigh Open wound of anterior abdominal wall, initial encounter Primary hypertension ([facility])- Primary Unspecified essential hypertension Yeast infection of the skin Candidiasis of skin and nails Morbid obesity ([facility]CC) Morbid obesity Primary hypertension ([facility])- Primary Unspecified essential hypertension Allergic rhinitis, unspecified Acute cough Morbid obesity ([facility]) Morbid obesity Former cigarette smoker Personal history of tobacco use, presenting hazards to health Toxic metabolic encephalopathy- Primary Hemiparesis, right ([facility]) Unspecified hemiplegia affecting unspecified side Acute respiratory failure with hypoxia ([facility]) Heart murmur Undiagnosed cardiac murmurs Primary hypertension ([facility]) Unspecified essential hypertension Morbid obesity ([facility]) Morbid obesity Bipolar disorder with severe depression ([facility]) Slurred speech Other speech disturbance Bilateral lower extremity edema- Primary Primary hypertension ([facility]) Unspecified essential hypertension Lower extremity edema Edema Essential (primary) hypertension ([facility]) Unspecified essential hypertension Gastro-esophageal reflux disease without esophagitis Allergic rhinitis, unspecified Bilateral lower extremity edema- Primary Morbid (severe) obesity due to excess calories ([facility]) Body mass index (BMI) 45.0-49.9, adult ([facility]) Pre-diabetes Other abnormal glucose Bilateral lower extremity edema- Primary Essential (primary) hypertension ([facility]) Unspecified essential hypertension Allergic rhinitis, unspecified OSMANY (obstructive sleep apnea) Obstructive sleep apnea (adult) (pediatric) Primary hypertension ([facility]) Unspecified essential hypertension Morbid obesity ([facility]) Morbid obesity Acute cystitis without hematuria- Primary Tobacco dependence Tobacco use disorder Needs flu shot Need for prophylactic vaccination and inoculation against influenza Morbid obesity ([facility]) Morbid obesity Well woman exam with routine gynecological exam- Primary Routine gynecological examination Morbid obesity ([facility]) Morbid obesity Metabolic encephalopathy- Primary OSMANY (obstructive sleep apnea) Obstructive sleep apnea (adult) (pediatric) Morbid obesity ([facility]) Morbid obesity Bilateral lower extremity edema Tobacco dependence Tobacco use disorder Bipolar disorder with severe depression ([facility]) At risk for polypharmacy Anxiety Anxiety state, unspecified Primary hypertension ([facility]) Unspecified essential hypertension Right bundle branch block (RBBB) determined by electrocardiography Metabolic encephalopathy- Primary Memory change Memory loss Altered mental status, unspecified altered mental status type Concentration deficit PTSD (post-traumatic stress disorder) ([facility]) Posttraumatic stress disorder Bipolar affective disorder, remission status unspecified ([facility]) Family history of dementia Family history of other neurological diseases 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[facility]) OSMANY (obstructive sleep apnea) Obstructive [...] Morbid obesity (CMS/HCC) Morbid obesity Primary hypertension ([facility]/HCC)- Primary Unspecified essential hypertension Allergic rhinitis, unspecified Acute cough Morbid obesity ([facility]) Morbid obesity Former cigarette smoker Personal history of tobacco use, presenting hazards to health Toxic metabolic encephalopathy- Primary Hemiparesis, right ([facility]) Unspecified hemiplegia affecting unspecified side Acute respiratory failure with hypoxia ([facility]) Heart murmur Undiagnosed cardiac murmurs Primary hypertension ([facility]) Unspecified essential hypertension Morbid obesity ([facility]) Morbid obesity Bipolar disorder with severe depression ([facility]) Slurred speech Other speech disturbance Bilateral lower extremity edema- Primary Primary hypertension ([facility]/HCC) Unspecified essential hypertension Lower extremity edema Edema Essential (primary) hypertension ([facility]) Unspecified essential hypertension Gastro-esophageal reflux disease without esophagitis Allergic rhinitis, unspecified Bilateral lower extremity edema- Primary Morbid (severe) obesity due to excess calories ([facility]) Body mass index (BMI) 45.0-49.9, adult ([facility]) Pre-diabetes Other abnormal glucose Bilateral lower extremity edema- Primary Essential (primary) hypertension ([facility]/HCC) Unspecified essential hypertension Allergic rhinitis, unspecified OSMANY (obstructive sleep apnea) Obstructive sleep apnea (adult) (pediatric) Primary hypertension ([facility]/HCC) Unspecified essential hypertension Morbid obesity ([facility]/HCC) Morbid obesity Acute cystitis without hematuria- [...] legs syndrome (RLS) documented in this encounter [facility] HealthcareEvaluation note* Diagnosis Encounter for annual wellness [...] unspecified side Acute respiratory failure with hypoxia ([facility]) Heart murmur Undiagnosed cardiac murmurs [...] (CMS/HCC) Body mass index (BMI) 45.0-49.9, adult ([facility]) Pre-diabetes Other abnormal glucose Bilateral lower extremity edema- Primary Essential (primary) hypertension (CMS/HCC) Unspecified essential hypertension Allergic rhinitis, unspecified OSMANY (obstructive sleep apnea) Obstructive sleep apnea (adult) (pediatric) Primary hypertension ([facility]/HCC) Unspecified essential hypertension Morbid obesity ([facility]) Morbid obesity Acute cystitis without hematuria- Primary Tobacco dependence Tobacco use disorder Needs flu shot Need for prophylactic vaccination and inoculation against influenza Morbid obesity (CMS/HCC) Morbid obesity Well woman exam with routine gynecological exam- Primary Routine gynecological examination Morbid obesity ([facility]/HCC) Morbid obesity Metabolic encephalopathy- Primary OSMANY (obstructive sleep apnea) Obstructive sleep apnea (adult) (pediatric) Morbid obesity ([facility]/HCC) Morbid obesity Bilateral lower extremity edema Tobacco dependence Tobacco use disorder Bipolar disorder with severe depression ([facility]) At risk for polypharmacy Anxiety Anxiety state, unspecified Primary hypertension ([facility]) Unspecified essential hypertension Right bundle branch block (RBBB) determined by electrocardiography Primary hypertension ([facility])- Primary Unspecified essential hypertension Chronic kidney disease, stage 3a ([facility]) ([facility]) Morbid (severe) obesity due to excess calories ([facility]) Body mass index (BMI) 45.0-49.9, adult ([facility]) OSMANY (obstructive sleep apnea) Obstructive sleep apnea (adult) (pediatric) Hemiparesis, right ([facility]) Unspecified hemiplegia affecting unspecified side Gastroesophageal reflux disease, unspecified whether esophagitis present Metabolic encephalopathy Essential (primary) hypertension ([facility]) Unspecified essential hypertension Allergic rhinitis, unspecified Gastro-esophageal reflux disease without esophagitis Bilateral lower extremity edema documented in this encounter [facility] HealthcareEvaluation note* Diagnosis Encounter for annual wellness visit (AWV) in Medicare patient- Primary OSMANY (obstructive sleep apnea) Obstructive sleep apnea (adult) (pediatric) Chronic pain disorder Chronic pain syndrome Gastroesophageal reflux disease, unspecified whether esophagitis present Overactive bladder Hypertonicity of bladder Lower extremity edema Edema Pre-diabetes Other abnormal glucose Morbid obesity ([facility]/HCC) Morbid obesity Yeast infection of the skin Candidiasis of skin and nails Tobacco dependence Tobacco use disorder Mood disorder ([facility]/HCC) Unspecified episodic mood disorder Primary hypertension ([facility]) Unspecified essential hypertension Left hip pain Pain in joint, pelvic region and thigh Open wound of anterior abdominal wall, initial encounter Primary hypertension ([facility]/HCC)- Primary Unspecified essential hypertension Yeast infection of the skin Candidiasis of skin and nails Morbid obesity ([facility]/HCC) Morbid obesity Primary hypertension ([facility])- Primary Unspecified essential hypertension Allergic rhinitis, unspecified Acute cough Morbid obesity ([facility]) Morbid obesity Former cigarette smoker Personal history of tobacco use, presenting hazards to health Toxic metabolic encephalopathy- Primary Hemiparesis, right ([facility]) Unspecified hemiplegia affecting unspecified side Acute respiratory failure with hypoxia ([facility]) Heart murmur Undiagnosed cardiac murmurs Primary hypertension ([facility]) Unspecified essential hypertension Morbid obesity ([facility]) Morbid obesity Bipolar disorder with severe depression ([facility]) Slurred speech Other speech disturbance Bilateral lower extremity edema- Primary Primary hypertension ([facility]/HCC) Unspecified essential hypertension Lower extremity edema Edema Essential (primary) hypertension ([facility]) Unspecified essential hypertension Gastro-esophageal reflux disease without esophagitis Allergic rhinitis, unspecified Bilateral lower extremity edema- Primary Morbid (severe) obesity due to excess calories ([facility]) Body mass index (BMI) 45.0-49.9, adult ([facility]) Pre-diabetes Other abnormal glucose Bilateral lower extremity edema- Primary Essential (primary) hypertension ([facility]) Unspecified essential hypertension Allergic rhinitis, unspecified OSMANY (obstructive sleep apnea) Obstructive sleep apnea (adult) (pediatric) Primary hypertension ([facility]) Unspecified essential hypertension Morbid obesity ([facility]) Morbid obesity Acute cystitis without hematuria- Primary Tobacco dependence Tobacco use disorder Needs flu shot Need for prophylactic vaccination and inoculation against influenza Morbid obesity ([facility]) Morbid obesity Well woman exam with routine gynecological exam- Primary Routine gynecological examination Morbid obesity ([facility]) Morbid obesity Metabolic encephalopathy- Primary OSMANY (obstructive sleep apnea) Obstructive sleep apnea (adult) (pediatric) Morbid obesity ([facility]) Morbid obesity Bilateral lower extremity edema Tobacco dependence Tobacco use disorder Bipolar disorder with severe depression ([facility]) At risk for polypharmacy Anxiety Anxiety state, unspecified Primary hypertension ([facility]) Unspecified essential hypertension Right bundle branch block (RBBB) determined by electrocardiography Primary hypertension ([facility])- Primary Unspecified essential hypertension Chronic kidney disease, stage 3a (HCC) ([facility]) Morbid (severe) obesity due to excess calories ([facility]) Body mass index (BMI) 45.0-49.9, adult ([facility]) OSMANY (obstructive sleep apnea) Obstructive sleep apnea (adult) (pediatric) Hemiparesis, right ([facility]) Unspecified hemiplegia affecting unspecified side Gastroesophageal reflux disease, unspecified whether esophagitis present Metabolic encephalopathy Essential (primary) hypertension (CMS/HCC) Unspecified essential hypertension Allergic rhinitis, unspecified Gastro-esophageal reflux disease without esophagitis Bilateral lower extremity edema 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 ([facility])- Primary OSMANY (obstructive sleep apnea) Obstructive sleep apnea (adult) (pediatric) Metabolic encephalopathy Restless leg Restless legs syndrome (RLS) Degeneration of intervertebral disc of lumbar region with discogenic back pain and lower extremity pain documented in this encounter [facility] HealthcareEvaluation note* Diagnosis Encounter for annual wellness [...] health Toxic metabolic encephalopathy- Primary Hemiparesis, right ([facility]) Unspecified hemiplegia affecting unspecified side Acute respiratory failure with hypoxia ([facility]) Heart murmur Undiagnosed cardiac murmurs [...] Morbid (severe) obesity due to excess calories ([facility]) Body mass index (BMI) 45.0-49.9, adult ([facility]) Pre-diabetes Other abnormal glucose Bilateral lower extremity edema- Primary Essential (primary) hypertension ([facility]) Unspecified essential hypertension Allergic rhinitis, unspecified OSMANY (obstructive sleep apnea) Obstructive sleep apnea (adult) (pediatric) Primary hypertension ([facility]/HCC) Unspecified essential hypertension Morbid obesity ([facility]) Morbid obesity Acute cystitis without hematuria- Primary Tobacco dependence Tobacco use disorder Needs flu shot Need for prophylactic vaccination and inoculation against influenza Morbid obesity ([facility]/HCC) Morbid obesity Well woman exam with routine gynecological exam- Primary Routine gynecological examination Morbid obesity ([facility]/HCC) Morbid obesity Metabolic encephalopathy- Primary OSMANY (obstructive sleep apnea) Obstructive sleep apnea (adult) (pediatric) Morbid obesity ([facility]/HCC) Morbid obesity Bilateral lower extremity edema Tobacco dependence Tobacco use disorder Bipolar disorder with severe depression ([facility]) At risk for polypharmacy Anxiety Anxiety state, unspecified Primary hypertension ([facility]) Unspecified essential hypertension Right bundle branch block (RBBB) determined by electrocardiography Primary hypertension ([facility])- Primary Unspecified essential hypertension Chronic kidney disease, stage 3a ([facility]) ([facility]) Morbid (severe) obesity due to excess calories ([facility]) Body mass index (BMI) 45.0-49.9, adult ([facility]) OSMANY (obstructive sleep apnea) Obstructive sleep apnea (adult) (pediatric) Hemiparesis, right ([facility]) Unspecified hemiplegia affecting unspecified side Gastroesophageal reflux disease, unspecified whether esophagitis present Metabolic encephalopathy Essential (primary) hypertension ([facility]) Unspecified essential hypertension Allergic rhinitis, unspecified Gastro-esophageal reflux disease without esophagitis Bilateral lower extremity edema Restless leg Restless legs syndrome (RLS) documented in this encounter [facility] HealthcareEvaluation note* Diagnosis Encounter for annual wellness visit (AWV) in Medicare patient- Primary OSMANY (obstructive sleep apnea) Obstructive sleep apnea (adult) (pediatric) Chronic pain disorder Chronic pain syndrome Gastroesophageal reflux disease, unspecified whether esophagitis present Overactive bladder Hypertonicity of bladder Lower extremity edema Edema Pre-diabetes Other abnormal glucose Morbid obesity ([facility]/HCC) Morbid obesity Yeast infection of the skin Candidiasis of skin and nails Tobacco dependence Tobacco use disorder Mood disorder ([facility]/HCC) Unspecified episodic mood disorder Primary hypertension ([facility]) Unspecified essential hypertension Left hip pain Pain in joint, pelvic region and thigh Open wound of anterior abdominal wall, initial encounter Primary hypertension ([facility]/HCC)- Primary Unspecified essential hypertension Yeast infection of the skin Candidiasis of skin and nails Morbid obesity ([facility]/HCC) Morbid obesity Primary hypertension ([facility]/HCC)- Primary Unspecified essential hypertension Allergic rhinitis, unspecified Acute cough Morbid obesity ([facility]/HCC) Morbid obesity Former cigarette smoker Personal history of tobacco use, presenting hazards to health Toxic metabolic encephalopathy- Primary Hemiparesis, right ([facility]) Unspecified hemiplegia affecting unspecified side Acute respiratory failure with hypoxia ([facility]) Heart murmur Undiagnosed cardiac murmurs Primary hypertension ([facility]) Unspecified essential hypertension Morbid obesity ([facility]) Morbid obesity Bipolar disorder with severe depression ([facility]) Slurred speech Other speech disturbance Bilateral lower extremity edema- Primary Primary hypertension ([facility]) Unspecified essential hypertension Lower extremity edema Edema Essential (primary) hypertension ([facility]) Unspecified essential hypertension Gastro-esophageal reflux disease without esophagitis Allergic rhinitis, unspecified Bilateral lower extremity edema- Primary Morbid (severe) obesity due to excess calories ([facility]) Body mass index (BMI) 45.0-49.9, adult ([facility]) Pre-diabetes Other abnormal glucose Bilateral lower extremity edema- Primary Essential (primary) hypertension ([facility]) Unspecified essential hypertension Allergic rhinitis, unspecified OSMANY (obstructive sleep apnea) Obstructive sleep apnea (adult) (pediatric) Primary hypertension ([facility]) Unspecified essential hypertension Morbid obesity ([facility]) Morbid obesity Acute cystitis without hematuria- Primary Tobacco dependence Tobacco use disorder Needs flu shot Need for prophylactic vaccination and inoculation against influenza Morbid obesity ([facility]/HCC) Morbid obesity Well woman exam with routine gynecological exam- Primary Routine gynecological examination Morbid obesity ([facility]) Morbid obesity Metabolic encephalopathy- Primary OSMANY (obstructive sleep apnea) Obstructive sleep apnea (adult) (pediatric) Morbid obesity ([facility]) Morbid obesity Bilateral lower extremity edema Tobacco dependence Tobacco use disorder Bipolar disorder with severe depression ([facility]) At risk for polypharmacy Anxiety Anxiety state, unspecified Primary hypertension ([facility]) Unspecified essential hypertension Right bundle branch block (RBBB) determined by electrocardiography Primary hypertension ([facility])- Primary Unspecified essential hypertension Chronic kidney disease, stage 3a (HCC) ([facility]) Morbid (severe) obesity due to excess calories ([facility]) Body mass index (BMI) 45.0-49.9, adult ([facility]) OSMANY (obstructive sleep apnea) Obstructive sleep apnea (adult) (pediatric) Hemiparesis, right ([facility]) Unspecified hemiplegia affecting unspecified side Gastroesophageal reflux disease, unspecified whether esophagitis present Metabolic encephalopathy Essential (primary) hypertension ([facility]) Unspecified essential hypertension Allergic rhinitis, unspecified Gastro-esophageal reflux disease without esophagitis Bilateral lower extremity edema URI, acute- Primary Acute upper respiratory infections of unspecified site documented in this encounter [facility] HealthcareEvaluation note* Diagnosis Encounter for annual wellness visit (AWV) in Medicare patient- Primary OSMANY (obstructive sleep apnea) Obstructive sleep apnea (adult) (pediatric) Chronic pain disorder Chronic pain syndrome Gastroesophageal reflux disease, unspecified whether esophagitis present Overactive bladder Hypertonicity of bladder Lower extremity edema Edema Pre-diabetes Other abnormal glucose Morbid obesity ([facility]) Morbid obesity Yeast infection of the skin Candidiasis of skin and nails Tobacco dependence Tobacco use disorder Mood disorder ([facility]) Unspecified episodic mood disorder Primary hypertension ([facility]) Unspecified essential hypertension Left hip pain Pain in joint, pelvic region and thigh Open wound of anterior abdominal wall, initial encounter Primary hypertension ([facility])- Primary Unspecified essential hypertension Yeast infection of the skin Candidiasis of skin and nails Morbid obesity ([facility]) Morbid obesity Primary hypertension ([facility])- Primary Unspecified essential hypertension Allergic rhinitis, unspecified Acute cough Morbid obesity ([facility]) Morbid obesity Former cigarette smoker Personal history of tobacco use, presenting hazards to health Toxic metabolic encephalopathy- Primary Hemiparesis, right ([facility]) Unspecified hemiplegia affecting unspecified side Acute respiratory failure with hypoxia ([facility]) Heart murmur Undiagnosed cardiac murmurs Primary hypertension ([facility]) Unspecified essential hypertension Morbid obesity ([facility]) Morbid obesity Bipolar disorder with severe depression ([facility]) Slurred speech Other speech disturbance Bilateral lower extremity edema- Primary Primary hypertension ([facility]) Unspecified essential hypertension Lower extremity edema Edema Essential (primary) hypertension ([facility]) Unspecified essential hypertension Gastro-esophageal reflux disease without esophagitis Allergic rhinitis, unspecified Bilateral lower extremity edema- Primary Morbid (severe) obesity due to excess calories ([facility]) Body mass index (BMI) 45.0-49.9, adult ([facility]) Pre-diabetes Other abnormal glucose Bilateral lower extremity edema- Primary Essential (primary) hypertension ([facility]) Unspecified essential hypertension Allergic rhinitis, unspecified OSMANY (obstructive sleep apnea) Obstructive sleep apnea (adult) (pediatric) Primary hypertension ([facility]/HCC) Unspecified essential hypertension Morbid obesity ([facility]/HCC) Morbid obesity Acute cystitis without hematuria- Primary Tobacco dependence Tobacco use disorder Needs flu shot Need for prophylactic vaccination and inoculation against influenza Morbid obesity (CMS/HCC) Morbid obesity Well woman exam with routine gynecological exam- Primary Routine gynecological examination Morbid obesity (CMS/HCC) Morbid obesity Metabolic encephalopathy- Primary OSMANY (obstructive sleep apnea) Obstructive sleep apnea (adult) (pediatric) Morbid obesity ([facility]/HCC) Morbid obesity Bilateral lower extremity edema Tobacco dependence Tobacco use disorder Bipolar disorder with severe depression ([facility]) At risk for polypharmacy Anxiety Anxiety state, unspecified Primary hypertension ([facility]/HCC) Unspecified essential hypertension Right bundle branch block (RBBB) determined by electrocardiography Primary hypertension ([facility]/HCC)- Primary Unspecified essential hypertension Chronic kidney disease, stage 3a ([facility]) ([facility]) Morbid (severe) obesity due to excess calories ([facility]) Body mass index (BMI) 45.0-49.9, adult ([facility]) OSMANY (obstructive sleep apnea) Obstructive sleep apnea (adult) (pediatric) Hemiparesis, right ([facility]) Unspecified hemiplegia affecting unspecified side Gastroesophageal reflux disease, unspecified whether esophagitis present Metabolic encephalopathy Essential (primary) hypertension ([facility]) Unspecified essential hypertension Allergic rhinitis, unspecified Gastro-esophageal reflux disease without esophagitis Bilateral lower extremity edema OSMANY (obstructive sleep apnea)- Primary Obstructive sleep apnea (adult) (pediatric) Restless leg Restless legs syndrome (RLS) 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[facility]) Concentration deficit documented in this [...] Tobacco dependence Tobacco use disorder Mood disorder ([facility]/HCC) Unspecified episodic mood disorder Primary hypertension ([facility]/HCC) Unspecified essential hypertension Left hip pain Pain in joint, pelvic region and thigh Open wound of anterior abdominal wall, initial encounter Primary hypertension ([facility]CC)- Primary Unspecified essential hypertension Yeast infection of the skin Candidiasis of skin and nails Morbid obesity ([facility]/HCC) Morbid obesity Primary hypertension ([facility])- Primary Unspecified essential hypertension Allergic rhinitis, unspecified Acute cough Morbid obesity ([facility]/HCC) Morbid obesity Former cigarette smoker Personal history of tobacco use, presenting hazards to health Toxic metabolic encephalopathy- Primary Hemiparesis, right ([facility]) Unspecified hemiplegia affecting unspecified side Acute respiratory failure with hypoxia ([facility]) Heart murmur Undiagnosed cardiac murmurs Primary hypertension ([facility] [facility]) Unspecified essential hypertension Morbid obesity ([facility]) Morbid obesity Bipolar disorder with severe depression ([facility]) Slurred speech Other speech disturbance Bilateral lower extremity edema- Primary Primary hypertension ([facility]) Unspecified essential hypertension Lower extremity edema Edema Essential (primary) hypertension ([facility]) Unspecified essential hypertension Gastro-esophageal reflux disease without esophagitis Allergic rhinitis, unspecified Bilateral lower extremity edema- Primary Morbid (severe) obesity due to excess calories ([facility]) Body mass index (BMI) 45.0-49.9, adult ([facility]) Pre-diabetes Other abnormal glucose Bilateral lower extremity edema- Primary Essential (primary) hypertension ([facility]) Unspecified essential hypertension Allergic rhinitis, unspecified OSMANY (obstructive sleep apnea) Obstructive sleep apnea (adult) (pediatric) Primary hypertension ([facility]) Unspecified essential hypertension Morbid obesity ([facility]) Morbid obesity Acute cystitis without hematuria- Primary Tobacco dependence Tobacco use disorder Needs flu shot Need for prophylactic vaccination and inoculation against influenza Morbid obesity ([facility]) Morbid obesity Well woman exam with routine gynecological exam- Primary Routine gynecological examination Morbid obesity ([facility]) Morbid obesity Metabolic encephalopathy- Primary OSMANY (obstructive sleep apnea) Obstructive sleep apnea (adult) (pediatric) Morbid obesity ([facility]) Morbid obesity Bilateral lower extremity edema Tobacco dependence Tobacco use disorder Bipolar disorder with severe depression ([facility]) At risk for polypharmacy Anxiety Anxiety state, unspecified Primary hypertension ([facility]) Unspecified essential hypertension Right bundle branch block (RBBB) determined by electrocardiography Primary hypertension ([facility])- Primary Unspecified essential hypertension Chronic kidney disease, stage 3a (HCC) ([facility]) Morbid (severe) obesity due to excess calories ([facility]) Body mass index (BMI) 45.0-49.9, adult ([facility]) OSMANY (obstructive sleep apnea) Obstructive sleep apnea (adult) (pediatric) Hemiparesis, right ([facility]) Unspecified hemiplegia affecting unspecified side Gastroesophageal reflux disease, unspecified whether esophagitis present Metabolic encephalopathy Essential (primary) hypertension (CMS/HCC) Unspecified essential hypertension Allergic rhinitis, unspecified Gastro-esophageal reflux disease without esophagitis Bilateral lower extremity edema Primary hypertension ([facility])- Primary Unspecified essential hypertension Morbid (severe) obesity due to excess calories (CMS/HCC) Essential (primary) hypertension ([facility]) Unspecified essential hypertension Allergic rhinitis, unspecified Gastro-esophageal reflux disease without esophagitis Bilateral lower extremity edema Bronchitis Bronchitis, not specified as acute or chronic documented in this encounter [facility] HealthcareEvaluation note* Diagnosis Encounter for annual wellness visit (AWV) in Medicare patient- Primary OSMANY (obstructive sleep apnea) Obstructive sleep apnea (adult) (pediatric) Chronic pain disorder Chronic pain syndrome Gastroesophageal reflux disease, unspecified whether esophagitis present Overactive bladder Hypertonicity of bladder Lower extremity edema Edema Pre-diabetes Other abnormal glucose Morbid obesity ([facility]) Morbid obesity Yeast infection of the skin Candidiasis of skin and nails Tobacco dependence Tobacco use disorder Mood disorder ([facility]) Unspecified episodic mood disorder Primary hypertension ([facility]) Unspecified essential hypertension Left hip pain Pain in joint, pelvic region and thigh Open wound of anterior abdominal wall, initial encounter Primary hypertension ([facility])- Primary Unspecified essential hypertension Yeast infection of the skin Candidiasis of skin and nails Morbid obesity ([facility]) Morbid obesity Primary hypertension ([facility])- Primary Unspecified essential hypertension Allergic rhinitis, unspecified Acute cough Morbid obesity ([facility]) Morbid obesity Former cigarette smoker Personal history of tobacco use, presenting hazards to health Toxic metabolic encephalopathy- Primary Hemiparesis, right ([facility]) Unspecified hemiplegia affecting unspecified side Acute respiratory failure with hypoxia ([facility]) Heart murmur Undiagnosed cardiac murmurs Primary hypertension ([facility]) Unspecified essential hypertension Morbid obesity ([facility]) Morbid obesity Bipolar disorder with severe depression ([facility]) Slurred speech Other speech disturbance Bilateral lower extremity edema- Primary Primary hypertension (CMS/HCC) Unspecified essential hypertension Lower extremity edema Edema Essential (primary) hypertension ([facility]) Unspecified essential hypertension Gastro-esophageal reflux disease without esophagitis Allergic rhinitis, unspecified Bilateral lower extremity edema- Primary Morbid (severe) obesity due to excess calories ([facility]) Body mass index (BMI) 45.0-49.9, adult ([facility]) Pre-diabetes Other abnormal glucose Bilateral lower extremity edema- Primary Essential (primary) hypertension ([facility]) Unspecified essential hypertension Allergic rhinitis, unspecified OSMANY (obstructive sleep apnea) Obstructive sleep apnea (adult) (pediatric) Primary hypertension ([facility]) Unspecified essential hypertension Morbid obesity ([facility]) Morbid obesity Well woman exam with routine gynecological exam- Primary Routine gynecological examination Morbid obesity ([facility]) Morbid obesity Metabolic encephalopathy- Primary OSMANY (obstructive sleep apnea) Obstructive sleep apnea (adult) (pediatric) Morbid obesity ([facility]) Morbid obesity Bilateral lower extremity edema Tobacco dependence Tobacco use disorder Bipolar disorder with severe depression ([facility]) At risk for polypharmacy Anxiety Anxiety state, unspecified Primary hypertension ([facility]) Unspecified essential hypertension Right bundle branch block (RBBB) determined by electrocardiography Primary hypertension ([facility])- Primary Unspecified essential hypertension Chronic kidney disease, stage 3a (HCC) ([facility]) Morbid (severe) obesity due to excess calories ([facility]) Body mass index (BMI) 45.0-49.9, adult ([facility]) OSMANY (obstructive sleep apnea) Obstructive sleep apnea (adult) (pediatric) Hemiparesis, right ([facility]) Unspecified hemiplegia affecting unspecified side Gastroesophageal reflux disease, unspecified whether esophagitis present Metabolic encephalopathy Essential (primary) hypertension ([facility]) Unspecified essential hypertension Allergic rhinitis, unspecified Gastro-esophageal reflux disease without esophagitis Bilateral lower extremity edema Primary hypertension ([facility])- Primary Unspecified essential hypertension Morbid (severe) obesity due to excess calories ([facility]) Essential (primary) hypertension ([facility]) Unspecified essential hypertension Allergic rhinitis, unspecified Gastro-esophageal reflux disease without esophagitis Bilateral lower extremity edema Bronchitis Bronchitis, not specified as acute or chronic Primary hypertension ([facility])- Primary Unspecified essential hypertension Bronchitis Bronchitis, not specified as acute or chronic Bilateral lower extremity edema Morbid (severe) obesity due to excess calories ([facility]) Pre-diabetes Other abnormal glucose Allergic rhinitis, unspecified seasonality, unspecified trigger Encounter for screening mammogram for malignant neoplasm of breast Former cigarette smoker Personal history of tobacco use, presenting hazards to health documented in this encounter [facility] HealthcareHistory and physical note Author Jace Graham [facility] March 23, 2023 11:21am Note Date/Time March 23, 2023 11:21am [facility] [address] [place] [address] Gastroenterology H&P Signed Patient: Michelle Be MR#: [id number] : 1960 Acct:[id number] Age/Sex: 62 / F Adm Date: 3 Loc: Room: Type: [facility] Attending Dr: Jace Graham MD Copies [...] <Electronically signed by Jace Graham MD> 03/23/231120 [facility] Work Phone: History general Narrative [...] see above surg Hospitalization History stroke 2017 [facility] Other Hospital Discharge instructions Additional Instructions Regular Diet [facility]: [facility] Discharge instructions Additional [...] years. -Follow up with PCP. -Office number [phone].[facility] Work Phone: Reason for visit Narrative* Consultation (Routine) - Closed Specialty Diagnoses / Procedures Referred By Contac t Referred To Contact Neuropsychology Diagnoses Memory change Procedures ME OFFICE/OUTPATIENT [facility] Juany Leggett PA [address] [place] [address] Phone: tel: fax: David Foster, PhD [address] [address] Phone: tel: fax: Referral ID Status Reason Start Date Expiration Date V isits Requested Visits Authorized [id number] Closed Specialty Services Required 03/07/2024 09/03/2024 1 1 [employer] Healthcare Summary Purpose Family History No Family [...] Documents on File Type Date Recorded Patient 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 Insurance 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 Expl anation Power of Manager Print 03/10/2024 3:12 PM POA Documents on File Type Date Recorded Patient 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 Insurance Agent Expl anation Power of Manager Print 03/10/2024 3:12 PM POA Documents on File Type Date Recorded Patient 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 Insurance Agent Expl anation Power of Manager Print 03/16/2024 9:42 AM darian r of real estate attorney Power of Manager Print 03/10/2024 3:12 PM POA Documents on File Type Date Recorded Patient 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 Insurance Agent Expl anation Power of Manager Print 03/16/2024 9:42 AM darian r of real estate attorney Power of Manager Print 03/10/2024 3:12 PM POA Chief Complaint and Reason for Visit Chief Complaint Bipolar Depression Reason for Visit Allergies Bipolar 2 disorder Hypertension Morbid obesity with BMI of 45.0-49.9, adult OSMANY (obstructive sleep apnea) Restless legs syndrome Chief Complaint Screening Additional Source Comments INFORMATION SOURCE (unrecogn ized section and content) DATE CREATED AUTHOR 02/18/2019 [facility] DATE CREATED AUTHOR AUTHOR'S ORGANIZ ATION 11/15/2021 Chavez Josemanuel [facility] DATE CREATED AUTHOR AUTHOR'S ORGANIZ ATION 08/16/2022 [facility] DATE CREATED AUTHOR AUTHOR'S ORGANIZ ATION 08/17/2024 [facility] EPIC DATE CREATED AUTHOR AUTHOR'S ORGANIZ ATION 09/28/2024 [facility] DATE CREATED AUTHOR AUTHOR'S ORGANIZ ATION 10/06/2024 [facility] Care Teams (unrecognized sec [...] MD Other Provider Active Joellen Le , MACHINE STRAP BUCKLER-C Other Provider Active Severo Yancey MD Other Provider Active Rao Webber MD Other Provider Active Yuan Sih MD Other Provider Active Delroy Ramirez MD Other Provider Active Berta Comer , DO Other Provider Active Negrito Ruiz , DO Other Provider Active Lacho Singh , DO Other Provider Active Rachana Hobson , AUDITOR INTERNAL Other Provider Active Rob Lake , DO Other Provider Active Jeff Alvarez MD Other Provider Active Urmila Rinaldi , AUDITOR INTERNAL Other Provider Active Bina Mayberry , AUDITOR INTERNAL Other Provider Active Mir Bradford MD Other Provider Active Te Da Silva MD Other Provider Active Debra Landaverde RN Other Provider Active Team Status: Inactive Member Role Status Dates Adelaida Carrion Primary Care Provider Active Jace Graham MD Attending Provider Active Sample Stitcher Relationship Specialty Start Date End Date José Luis Roberts MD [address] [place] [phone] PCP - General Family Medicine 05/18/23 Adelaida Carrion NP [address] [place] [phone] Referring Physician Nurse Practitioner 10/14/22 Sample Stitcher Relationship Specialty Start Date End Date José Luis Roberts MD [address] [place] [phone] PCP - General Family Medicine 05/18/23 Adelaida Carrion NP [address] [place] [phone] Referring Physician Nurse Practitioner 10/14/22 Sample Stitcher Relationship Specialty Start Date End Date José Luis Roberts MD [address] [place] [phone] PCP - General Family Medicine 05/18/23 Adelaida Carrion NP [address] [place] [phone] Referring Physician Nurse Practitioner 10/14/22 Sample Stitcher Relationship Specialty Start Date End Date José Luis Roberts MD [address] [place] [address] PCP - General Family Medicine 05/18/23 Adelaida Carrion NP Referring Physician Nurse Practitioner 10/14/22 Miriam Suarez DO [address] [place] [address] Referring Physician Neurology 06/29/23 [place] LPN Licensed Practical Nurse Family Medicine 12/18/23 Sample Stitcher Relationship Specialty Start Date End Date José Luis Roberts MD [address] [place] [phone] PCP - General Family Medicine 05/18/23 Adelaida Carrion, BRIANA Referring Physician Nurse Practitioner 10/14/22 Miriam Suarez DO [address] [place] [address] Referring Physician Neurology 06/29/23 [place] LPN Licensed Practical Nurse Family Medicine 12/18/23 Sample Stitcher Relationship Specialty Start Date End Date Unallocated, Johan Sierra MD [address] [place] [address] PCP - General Family Medicine 01/27/24 Miriam Suarez DO [address] [place] [address] Referring Physician Neurology 06/29/23 [place] LPN Licensed Practical Nurse Family Medicine 12/18/23 Adelaida Carrion, BRIANA [address] [place] [address] Nurse Practitioner Family Medicine 01/27/24 Sample Stitcher Relationship Specialty Start Date End Date Unallocated, Johan Sierra MD [address] [facility] [place] [address] PCP - General Family Medicine 01/27/24 Miriam Suarez DO [address] [place] [address] Referring Physician Neurology 06/29/23 [place] LPN Licensed Practical Nurse Family Medicine 12/18/23 Adelaida Carrion, BRIANA [address] [place] [address] Nurse Practitioner Family Medicine 01/27/24 Sample Stitcher Relationship Specialty Start Date End Date José Luis Roberts MD [address] [place] [address] PCP - General Family Medicine 02/02/24 Miriam Suarez DO [address] [place] [address] Referring Physician Neurology 06/29/23 [place] LPN Licensed Practical Nurse Family Medicine 12/18/23 Adelaida Carrion, BRIANA [address] [place] [address] Nurse Practitioner Family Medicine 01/27/24 Sample Stitcher Relationship Specialty Start Date End Date Naderer, José Luis, MD [address] [place] [address] PCP - General Family Medicine 02/02/24 Miriam Suarez DO [address] [place] [address] Referring Physician Neurology 06/29/23 Adelaida Carrion, BRIANA [address] [place] [address] Nurse Practitioner Family Medicine 01/27/24 Bong Rosado MA Family Medicine 02/12/24 Sample Stitcher Relationship Specialty Start Date End Date José Luis Roberts MD [address] [place] [address] PCP - General Family Medicine 02/02/24 Miriam Suarez DO [address] [place], [place] [phone] Referring Physician Neurology 06/29/23 Adelaida Carrion, BRIANA [address] [place] [address] Nurse Practitioner Family Medicine 01/27/24 Bong Rosado MA Family Medicine 02/12/24 Sample Stitcher Relationship Specialty Start Date End Date José Luis Roberts MD [address] [place] [address] PCP - General Family Medicine 02/02/24 Miriam Suarez DO [address] [place] [address] Referring Physician Neurology 06/29/23 Adelaida Carrion NP [address] [place] [address] Nurse Practitioner Family Medicine 01/27/24 Bong Rosado MA Family Medicine 02/12/24 Sample Stitcher Relationship Specialty Start Date End Date José Luis Roberts MD [address] [place] [address] PCP - General Family Medicine 02/02/24 Miriam Suarez DO [address] [place], [place] [address] Referring Physician Neurology 06/29/23 Adelaida Carrion NP [address] [place] [address] Nurse Practitioner Family Medicine 01/27/24 Bong Rosado MA Family Medicine 02/12/24 Sample Stitcher Relationship Specialty Start Date End Date José Luis Roberts MD [address] [place] [address] PCP - General Family Medicine 02/02/24 Miriam Suarez DO [address] [place] [address] Referring Physician Neurology 06/29/23 Adelaida Carrion NP [address] [place] [address] Nurse Practitioner Family Medicine 01/27/24 Bong Rosado MA Family Medicine 02/12/24 Sample Stitcher Relationship Specialty Start Date End Date Naderer, José Luis, MD [address] [place] [address] PCP - General Family Medicine 02/02/24 Miriam Suarez DO [address] [place] [address] Referring Physician Neurology 06/29/23 Adelaida Carrion, BRIANA [address] [place] [address] Nurse Practitioner Family Medicine 01/27/24 Bong Rosado MA Family Medicine 02/12/24 Sample Stitcher Relationship Specialty Start Date End Date José Luis Roberts MD [address] [place] [address] PCP - General Family Medicine 02/02/24 Miriam Suarez DO [address] [place], [place] [phone] Referring Physician Neurology 06/29/23 Adelaida Carrion, BRIANA [address] [place] [address] Nurse Practitioner Family Medicine 01/27/24 Bong Rosado MA Family Medicine 02/12/24 Sample Stitcher Relationship Specialty Start Date End Date José Luis Roberts MD [address] [place] [address] PCP - General Family Medicine 02/02/24 Miriam Suarez DO [address] [place] [address] Referring Physician Neurology 06/29/23 Adelaida Carrion NP [address] [place] [address] Nurse Practitioner Family Medicine 01/27/24 Bong Rosado MA Family Medicine 02/12/24 Sample Stitcher Relationship Specialty Start Date End Date José Luis Roberts MD [address] [place] [address] PCP - General Family Medicine 02/02/24 Miriam Suarez DO [address] [place], [place] [phone] Referring Physician Neurology 06/29/23 Adelaida Carrion NP [address] [place] [address] Nurse Practitioner Family Medicine 01/27/24 Bong Rosado MA Family Medicine 02/12/24 Sample Stitcher Relationship Specialty Start Date End Date José Luis Roberts MD [address] [place] [address] PCP - General Family Medicine 02/02/24 Miriam Suarez DO [address] [place] [address] Referring Physician Neurology 06/29/23 Adelaida Carrion NP [address] [place] [address] Nurse Practitioner Family Medicine 01/27/24 Bong Rosado MA Family Medicine 02/12/24 Sample Stitcher Relationship Specialty Start Date End Date Naderer, José Luis, MD [address] [place] [address] PCP - General Family Medicine 02/02/24 Miriam Suarez DO [address] [place], [place] [address] Referring Physician Neurology 06/29/23 Adelaida Carrion NP [address] [place] [address] Nurse Practitioner Family Medicine 01/27/24 Bong Rosado MA Family Medicine 02/12/24 Sample Stitcher Relationship Specialty Start Date End Date José Luis Roberts MD [address] [place] [address] PCP - General Family Medicine 05/18/23 dAelaida Carrion NP Referring Physician Nurse Practitioner 10/14/22 Miriam Suarez DO [address] [place], [place] [address] Referring Physician Neurology 06/29/23 Mathew Parra LPN Licensed Practical Nurse Family Medicine 07/23/23 Sample Stitcher Relationship Specialty Start Date End Date José Luis Roberts MD [address] [place] [phone] PCP - General Family Medicine 05/18/23 Adelaida Carrion NP Referring Physician Nurse Practitioner 10/14/22 Miriam Suarez DO [address] [place] [address] Referring Physician Neurology 06/29/23 Mathew Parra LPN Licensed Practical Nurse Family Medicine 07/23/23 Sample Stitcher Relationship Specialty Start Date End Date José Luis Roberts MD [address] [place] [address] PCP - General Family Medicine 05/18/23 Adelaida Carrion NP Referring Physician Nurse Practitioner 10/14/22 Miriam Suarez DO [address] [place] [address] Referring Physician Neurology 06/29/23 Mathew Parra LPN Licensed Practical Nurse Family Medicine 07/23/23 Sample Stitcher Relationship Specialty Start Date End Date José Luis Roberts MD [address] [place] [address] PCP - General Family Medicine 05/18/23 Adelaida Carrion NP Referring Physician Nurse Practitioner 10/14/22 Miriam Suarez DO [address] [place] [address] Referring Physician Neurology 06/29/23 Mathew Parra LPN Licensed Practical Nurse Family Medicine 07/23/23 Sample Stitcher Relationship Specialty Start Date End Date José Luis Roberts MD [address] [place] [address] PCP - General Family Medicine 05/18/23 Adelaida Carrion NP Referring Physician Nurse Practitioner 10/14/22 Miriam Suarez DO [address] [place], [place] [address] Referring Physician Neurology 06/29/23 [place] LPN Licensed Practical Nurse Family Medicine 12/18/23 Sample Stitcher Relationship Specialty Start Date End Date José Luis Roberts MD [address] [place] [phone] PCP - General Family Medicine 05/18/23 Adelaida Carrion NP Referring Physician Nurse Practitioner 10/14/22 Miriam Suarez DO [address] [place], [place] [address] Referring Physician Neurology 06/29/23 [place] LPN Licensed Practical Nurse Family Medicine 12/18/23 Sample Stitcher Relationship Specialty Start Date End Date José Luis Roberts MD [address] [place] [address] PCP - General Family Medicine 05/18/23 Adelaida Carrion NP Referring Physician Nurse Practitioner 10/14/22 Miriam Suarez DO [address] [place] [address] Referring Physician Neurology 06/29/23 [place] LPN Licensed Practical Nurse Family Medicine 12/18/23 Sample Stitcher Relationship Specialty Start Date End Date José Luis Roberts MD [address] [place] [address] PCP - General Family Medicine 02/02/24 Miriam Suarez DO [address] [place] [address] Referring Physician Neurology 06/29/23 Adelaida Carrion NP [address] [place] [address] Nurse Practitioner Family Medicine 01/27/24 Bong Rosado MA Family Medicine 02/12/24 Sample Stitcher Relationship Specialty Start Date End Date José Luis Roberts MD [address] [place] [address] PCP - General Family Medicine 02/02/24 Miriam Suarez DO [address] [place] [address] Referring Physician Neurology 06/29/23 Adelaida Carrion NP [address] [place] [address] Nurse Practitioner Family Medicine 01/27/24 Bong Rosado MA Family Medicine 02/12/24 Sample Stitcher Relationship Specialty Start Date End Date José Luis Roberts MD [address] [place] [address] PCP - General Family Medicine 02/02/24 Miriam Suarez DO [address] [place] [address] Referring Physician Neurology 06/29/23 Adelaida Carrion NP [address] [place] [address] Nurse Practitioner Family Medicine 01/27/24 Bong Rosado MA Family Medicine 02/12/24 Sample Stitcher Relationship Specialty Start Date End Date José Luis Roberts MD [address] [place] [phone] PCP - General Family Medicine 02/02/24 Miriam Suarez DO [address] [place], [place] [id number] Referring Physician Neurology 06/29/23 Adelaida Carrion NP [address] [place] [phone] Nurse Practitioner Family Medicine 01/27/24 Bong Rosado MA Family Medicine 02/12/24 Sample Stitcher Relationship Specialty Start Date End Date José Luis Roberts MD [address] [place] [phone] PCP - General Family Medicine 02/02/24 Miriam Suarez DO [address] [place] [id number] Referring Physician Neurology 06/29/23 Adelaida Carrion NP [address] [place] [phone] Nurse Practitioner Family Medicine 01/27/24 Bong Rosado MA Family Medicine 02/12/24 Sample Stitcher Relationship Specialty Start Date End Date José Luis Roberts MD [address] [place] [phone] PCP - General Family Medicine 02/02/24 Miriam Suarez DO [address] [place], [place] [phone] Referring Physician Neurology 06/29/23 Adelaida Carrion NP [address] [place] [phone] Nurse Practitioner Family Medicine 01/27/24 Bong Rosado MA Family Medicine 02/12/24 Sample Stitcher Relationship Specialty Start Date End Date José Luis Roberts MD [address] [place] [phone] PCP - General Family Medicine 02/02/24 Miriam Suarez DO [address], [place] [phone] Referring Physician Neurology 06/29/23 Adelaida Cariron, BRIANA [address] [place] [phone] Nurse Practitioner Family Medicine 01/27/24 Bong Rosado MA Family Medicine 02/12/24 Juany Leggett PA [address] [place], [place] [phone] Physician Instructional Technology Teacher Neurology 07/26/24 Sample Stitcher Relationship Specialty Start Date End Date José Luis Roberts MD [address] [place] [phone] PCP - General Family Medicine 02/02/24 Miriam Suarez DO [address] [place] [address] Referring Physician Neurology 06/29/23 Adelaida Carrion NP [address] [place] [phone] Nurse Practitioner Family Medicine 01/27/24 Bong Rosado MA Family Medicine 02/12/24 Juany Leggett PA [address] [place] [address] Physician Instructional Technology Teacher Neurology 07/26/24 Sample Stitcher Relationship Specialty Start Date End Date José Luis Roberts MD [address] [place] [phone] PCP - General Family Medicine 02/02/24 Miriam Suarez DO [address] [place] [address] Referring Physician Neurology 06/29/23 Adelaida Carrion NP [address] [place] [phone] Nurse Practitioner Family Medicine 01/27/24 Bong Rosado MA Family Medicine 02/12/24 Juany Leggett PA [address] [place], [place] [address] Physician Instructional Technology Teacher Neurology 07/26/24 Sample Stitcher Relationship Specialty Start Date End Date José Luis Roberts MD [address] [place] [phone] PCP - General Family Medicine 02/02/24 Miriam Suarez DO [address] [place] [address] Referring Physician Neurology 06/29/23 Adelaida Carrion NP [address] [place] [phone] Nurse Practitioner Family Medicine 01/27/24 Bong Rosado MA Family Medicine 02/12/24 Juany Leggett PA [address] [place], [place] [phone] Physician Instructional Technology Teacher Neurology 07/26/24 Sample Stitcher Relationship Specialty Start Date End Date José Luis Roberts MD [address] [place] [phone] PCP - General Family Medicine 02/02/24 Miriam Suarez DO [address] [place], [place] [phone] Referring Physician Neurology 06/29/23 Adelaida Carroin NP [address] [place] [phone] Nurse Practitioner Family Medicine 01/27/24 Bong Rosado MA Family Medicine 02/12/24 Juany Leggett PA [address] [place], [place] [phone] Physician Instructional Technology Teacher Neurology 07/26/24 Sample Stitcher Relationship Specialty Start Date End Date José Luis Roberts MD [address] [place] [phone] PCP - General Family Medicine 02/02/24 Miriam Suarez DO [address] [place] [address] Referring Physician Neurology 06/29/23 Adelaida Carrion, BRIANA [address] [place] [phone] Nurse Practitioner Family Medicine 01/27/24 Bong Rosado MA Family Medicine 02/12/24 Juany Leggett PA [address] [place], [place] [address] Physician Instructional Technology Teacher Neurology 07/26/24 Sample Stitcher Relationship Specialty Start Date End Date José Luis Roberts MD [address] [place] [phone] PCP - General Family Medicine 02/02/24 Miriam Suarez DO [address] [place] [address] Referring Physician Neurology 06/29/23 Adelaida Carrion, BRIANA [address] [place] [phone] Nurse Practitioner Family Medicine 01/27/24 Bong Rosado, [place] [address] [place] [address] Family Medicine 02/12/24 Juany Leggett PA [address] [place] [address] Physician Instructional Technology Teacher Neurology 07/26/24 REASON FOR VISIT (unrecogniz [...] BE BASED ON THE PRIMARY CLINICAL RECORDS. [facility]. provides no warranty or guarantee of the accuracy or completeness of information in this document.
--- NOTE | 2024-10-08 09:49 | PM.IMHP1 ---
Internal Medicine - H&P: HPI History of Present Illness Chief complaint: MENTAL STATUS,AMS Narrative: Nasim Ingram is a 63 y/o F, h/o HTN, obstructive sleep apnea (non-compliant with CPAP), depression, anxiety, bipolar 2 disorder, borderline personality disorder, substance abuse, past concern for stroke with -ve workup, presented to [place] ER on 10/08/24 with confusion, admitted for observation of altered mental status. On assessment at bedside on the regular nursing floor, patient resting comfortably in bed, feels improved, oriented x3 but unclear history for why admitted, states was brought in for confusion. Denies any headache or blurred vision, no focal weakness. Does admit to marijuana ingestion, no thoughts of hurting herself or others. No fevers, chills, nausea, vomiting, chest pain, or shortness of breath. Review of Systems ROS Status of ROS 10 or more systems reviewed and unremarkable except as noted in history and below [facility] Medical History FH: bariatric surgery ?Z84.89 - Family history of other specified conditions (ICD-10) Upper back pain ?M54.9 - Dorsalgia, unspecified (ICD-10) Osteoarthritis ?M19.90 - Unspecified osteoarthritis, unspecified site (ICD-10) Neck pain ?M54.2 - Cervicalgia (ICD-10) Low back pain ?M54.50 - Low back pain, unspecified (ICD-10) Fibromyalgia ?M79.7 - Fibromyalgia (ICD-10) Bipolar 1 disorder ?F31.9 - Bipolar disorder, unspecified (ICD-10) Acid reflux ?K21.9 - Gastro-esophageal reflux disease without esophagitis (ICD-10) Obesity ?E66.9 - Obesity, unspecified (ICD-10) Sleep apnea ?G47.30 - Sleep apnea, unspecified (ICD-10) Heart murmur ?R01.1 - Cardiac murmur, unspecified (ICD-10) High cholesterol ?E78.00 - Pure hypercholesterolemia, unspecified (ICD-10) Hypertension ?I10 - Essential (primary) hypertension (ICD-10) Surgical History S/P dilatation and curettage ?Z98.890 - Other specified postprocedural states (ICD-10) H/O breast biopsy ?Z98.890 - Other specified postprocedural states (ICD-10) S/P ORIF (open reduction internal fixation) fracture ?Z98.890 - Other specified postprocedural states (ICD-10) ?Z87.81 - Personal history of (healed) traumatic fracture (ICD-10) Hx of laparoscopic gastric banding ?Z98.84 - Bariatric surgery status (ICD-10) History of tonsillectomy and adenoidectomy ?Z90.89 - Acquired absence of other organs (ICD-10) History of appendectomy ?Z90.49 - Acquired absence of other specified parts of digestive tract (ICD-10) History of hemilaminectomy ?Z98.890 - Other specified postprocedural states (ICD-10) History of cholecystectomy ?Z90.49 - Acquired absence of other specified parts of digestive tract (ICD-10) Previous section ?Z98.891 - History of uterine scar from previous surgery (ICD-10) Social History (Updated 10/08/24 @ 06:41 by Kar Robin RN) Within the past year, how often did you have a drink containing alcohol: never Within the past year, how often did you have six or more drinks on one occasion: never Score interpretation: A score less than 3 is consistent with normal alcohol consumption. 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 Known occupational exposures/hazards: No Highest level of school completed/degree received: Bachelor's degree Do you want help with school or training: No Little interest or pleasure in doing things: not at all Feeling down, depressed, or hopeless: several days Meds Home Medications and Allergies Home Medications ?Medication ?Instructions ?Recorded ?Confirmed ?Type amlodipine 10 mg tablet (Norvasc) 10 mg PO DAILY 09/10/22 10/08/24 History biotin 1 mg capsule 5 mg PO DAILY 09/10/22 09/19/24 History cariprazine 4.5 mg capsule 4.5 mg PO Q24H 09/10/22 09/19/24 History (Vraylar) duloxetine 60 mg capsule,delayed 60 mg PO BID 09/10/22 10/08/24 History release ferrous sulfate 325 mg (65 mg 325 mg PO BID 09/10/22 09/19/24 History iron) tablet (FeroSul) magnesium 200 mg tablet 400 mg PO QDAY 09/10/22 09/19/24 History melatonin 12 mg tablet 12 mg PO .HS PRN sleep 09/10/22 09/19/24 History omeprazole 20 mg capsule,delayed 20 mg PO QDAY 09/10/22 10/08/24 History release trazodone 150 mg tablet 150 mg PO .HS 09/10/22 10/08/24 History fluticasone propionate 50 2 spray intranasal DAILY PRN 10/20/23 10/08/24 History mcg/actuation nasal allergy symptoms spray,suspension (Flonase Allergy Relief) spironolactone 50 mg tablet 50 mg PO DAILY 10/20/23 10/08/24 History gabapentin 300 mg capsule 300 mg PO BID 11/03/23 10/08/24 History calcium citrate 200 mg PO QID 11/04/23 09/19/24 History carvedilol 12.5 mg tablet 12.5 mg PO Q12H 11/04/23 10/08/24 History multivitamin 1 tab PO DAILY 11/04/23 09/19/24 History fexofenadine 60 mg tablet (Naida 60 mg PO BID 08/08/24 09/19/24 History Allergy) losartan 100 mg tablet 100 mg PO DAILY 10/08/24 10/08/24 History ropinirole 3 mg tablet 3 mg PO .QHS 10/08/24 10/08/24 History tizanidine 4 mg tablet 4 mg PO TID PRN muscle spasticity 10/08/24 10/08/24 History Allergies Allergy/AdvReac Type Severity Reaction Status Date / Time levetiracetam (From Kera) Allergy Severe Unknown Verified 10/08/24 02:29 adhesive Allergy Intermediate Blister Verified 10/08/24 02:29 Penicillins Allergy Intermediate Unknown Verified 10/08/24 02:29 tetracycline Allergy Intermediate Unknown Verified 10/08/24 02:29 eszopiclone (From Lunesta) Allergy Unknown Verified 10/08/24 02:29 milnacipran (From Savella) AdvReac Intermediate Agitated Verified 10/08/24 02:29 prochlorperazine (From AdvReac Intermediate Agitated Verified 10/08/24 02:29 Compazine) Exam Narrative Exam Narrative: Gen.: Awake, alert, in no distress Head: Normocephalic, atraumatic ENT: Moist mucous membranes Respiratory: No respiratory distress, lungs clear bilaterally Cardio: Regular rate and rhythm Gastrointestinal: Abdomen is soft, nondistended and nontender to palpation Extremities: Moves extremities equally Psych: Normal mood and affect Neuro: No focal neuro deficit, CN II-XII grossly intact, no upper or lower extremity drift Skin: Warm, dry, intact Constitutional Vital Signs, click to edit/add: Last Vital Signs Temp 98.4 F 10/08/24 08:00 Pulse 79 10/08/24 08:00 Resp 18 10/08/24 08:00 BP 156/85 H 10/08/24 08:00 Pulse Ox 96 10/08/24 08:00 O2 Del Method Room Air 10/08/24 08:00 Internal Medicine - H&P: Reslt Labs Labs: Short CBC 10/08/24 Range/Units 03:12 WBC 11.3 H (4.0-11.0) 10^3/uL Hgb 14.3 (12.0-16.0) g/dL Hct 42.5 (36.0-48.0) % Plt Count 347 (150-450) 10^3/uL BMP 10/08/24 03:12 Sodium 141 Potassium 4.7 Chloride 105 Carbon Dioxide 24.7 BUN 22.0 H Creatinine 0.89 Glucose 140 H Calcium 9.3 Urine 10/08/24 Range/Units 03:00 Urine Color Yellow (YELLOW) Urine Clarity Clear (CLEAR) Urine pH 6.0 (5.0-9.0) Ur Specific [place] 1.025 (1.005-1.025) Urine Protein Negative (NEG/TRACE) mg/dL Urine Glucose (UA) Negative (NEGATIVE) mg/dL Assessment and Plan Assessment and Plan (1) Acute metabolic encephalopathy: (2) Marijuana intoxication: Plan Nasim Ingram is a 63 y/o F, h/o HTN, obstructive sleep apnea (non-compliant with CPAP), depression, anxiety, bipolar 2 disorder, borderline personality disorder, substance abuse, past concern for stroke with -ve workup, presented to [place] ER on 10/08/24 with confusion, admitted for observation of altered mental status. 1. acute metabolic encephalopathy likely 2/2 marijuana intoxication in the setting of OSMANY non-compliant CPAP - Symptomatically resolved at this time, no acute findings on CT head, utox positive for marijuana - will consult tele neurology to confirm no need for MRI/further imaging - no medication changes at this time 2. h/o HTN, obstructive sleep apnea (non-compliant with CPAP), depression, anxiety, bipolar 2 disorder, borderline personality disorder, substance abuse - continue home meds including cariprazine, duloxetine, gabapentin, and prn trazodone - continue amlodipine and spirinolactone for BP Diet: Cardiac Lines/tubes: PIV VTE prophylaxis: lovenox Code status: full Dispo: observation
--- NOTE | 2024-10-08 14:50 | PM.DS1 ---
DS: Providers Provider Date of admission: 10/08/24 04:55 Primary care physician: Adelaida Carrion NP Admitting clinician: Walker Pringle Attending physician on admission: Walker Pringle Consults: 10/08/24 04:24 Physical Therapy Eval and Treat Routine Reason for consultation: Weakness 10/08/24 11:33 Consult to TeleNeurology Routine Reason for consultation: confusion, please assess for need for MRI Occupational Therapy Eval and Treat Routine Reason for consultation: rehab/disposition Attending physician on discharge: KELLY STRANGE Discharging clinician: KELLY STRANGE Anticipated date of discharge: 10/08/24 DS: Diagnosis Discharge Diagnosis (1) Acute metabolic encephalopathy: (2) Marijuana intoxication: DS: Summary Hospital Course Hospital Course: Nasim Ingram is a 63 y/o F, h/o HTN, obstructive sleep apnea (non-compliant with CPAP), depression, anxiety, bipolar 2 disorder, borderline personality disorder, substance abuse, past concern for stroke with -ve workup, presented to [place] [facility] on 10/08/24 with confusion, admitted for observation of altered mental status. On assessment at bedside on the regular nursing floor, patient resting comfortably in bed, feels improved, oriented x3 but unclear history for why admitted, states was brought in for confusion. Denies any headache or blurred vision, no focal weakness. Does admit to marijuana ingestion, no thoughts of hurting herself or others. No fevers, chills, nausea, vomiting, chest pain, or shortness of breath. Evaluated by tele-neuro, felt altered mentation likely transient metabolic encephalopathy from drug ingestion and CPAP non-compliance, recommended outpatient follow up for MRI. Discharged on 10/08/24 in improved condition no medication changes. Time Spent with Patient Time attestation: Total time spent providing and/or coordinating discharge services: Exam Constitutional Vital Signs, click to edit/add: Last Vital Signs Temp 97.6 F 10/08/24 11:51 Pulse 120 H 10/08/24 13:50 Resp 16 10/08/24 11:51 BP 160/91 H 10/08/24 11:51 Pulse Ox 96 10/08/24 11:51 O2 Del Method Room Air 10/08/24 11:51 DS: Data Data Completed and Pending Labs on day of discharge: Labs from last 24 hours 10/08/24 10/08/24 03:12 03:00 WBC 11.3 H RBC 5.01 Hgb 14.3 Hct 42.5 MCV 84.8 MCH 28.5 MCHC 33.6 RDW 13.6 Plt Count 347 MPV 11.0 Neut % (Auto) 74.6 Lymph % (Auto) 15.[address] [place] % (Auto) 5.9 Eos % (Auto) 2.8 Baso % (Auto) 0.8 Neut # (Auto) 8.5 H Lymph # (Auto) 1.8 [facility] # (Auto) 0.7 Eos # (Auto) 0.3 Baso # (Auto) 0.1 Abs Immat Gran (auto) 0.04 H Imm/Tot Granulo (auto) 0.4 Sodium 141 Potassium 4.7 Chloride 105 Carbon Dioxide 24.7 Anion Gap 16.0 BUN 22.0 H Creatinine 0.89 Est GFR ( Amer) >60 Est GFR (Non-Af Amer) >60 BUN/Creatinine Ratio 24.7 Glucose 140 H Calcium 9.3 Ammonia 17 Urine Color Yellow Urine Clarity Clear Urine pH 6.0 Ur Specific Gaylord 1.025 Urine Protein Negative Urine Glucose (UA) Negative Urine Ketones Trace A Urine Occult Blood Negative Urine Nitrite Negative Urine Bilirubin Negative Urine Urobilinogen 0.2 Ur Leukocyte Esterase Negative Urine RBC 0-2 Urine WBC 0-2 A Ur Squamous Epith Cells Few A Urine Crystals None seen Urine Bacteria Trace A Urine Casts None seen Urine Mucus Trace A Ur Culture Indicated? No Salicylates <2.8 Urine Opiates Screen Negative Ur Buprenorphine Scrn Negative Ur Oxycodone Screen Negative Urine Methadone Screen Negative Acetaminophen <2.0 L Ur Barbiturates Screen Negative U Tricyclic Antidepress Negative Ur Phencyclidine Scrn Negative Ur Amphetamines Screen Negative U Methamphetamines Scrn Negative U Benzodiazepines Scrn Negative Urine Cocaine Screen Negative U Cannabinoids Screen Positive A Ethanol Quant <3 Discharge Plan Discharge Disposition: Home, Self-Care Condition: Good Discharge Medications: Continued omeprazole 20 mg capsule,delayed release(DR/EC) 20 mg PO QDAY duloxetine 60 mg capsule,delayed release(DR/EC) 60 mg PO BID Vraylar 4.5 mg capsule 4.5 mg PO Q24H biotin 1 mg capsule 5 mg PO DAILY ferrous sulfate [FeroSul] 325 mg (65 mg iron) tablet 325 mg PO BID magnesium 200 mg tablet 400 mg PO QDAY melatonin 12 mg tablet 12 mg PO .HS PRN (Reason: sleep) amlodipine [Norvasc] 10 mg tablet 10 mg PO DAILY trazodone 150 mg tablet 150 mg PO .HS gabapentin 300 mg capsule 300 mg PO BID carvedilol 12.5 mg tablet 12.5 mg PO Q12H calcium citrate 200 mg (950 mg) tablet 200 mg PO QID multivitamin Tablet 1 tab PO DAILY fexofenadine [Naida Allergy] 60 mg tablet 60 mg PO BID fluticasone propionate [Flonase Allergy Relief] 50 mcg/actuation spray,suspension 2 spray intranasal DAILY PRN (Reason: allergy symptoms) Rx Instructions: administer into each nostril spironolactone 50 mg tablet 50 mg PO DAILY ropinirole 3 mg tablet 3 mg PO .QHS losartan 100 mg tablet 100 mg PO DAILY tizanidine 4 mg tablet 4 mg PO TID PRN (Reason: muscle spasticity) Activity: resume usual activities as tolerated Diet: advance to your usual diet Print Language: Yakut Patient Instructions: Altered Mental Status (GEN), Encephalopathy (GEN) Forms: Portal Instructions Follow Up Appointments: Follow up with Primary Care Physician within 1 week. Adelaida Carrion NP [phone] Please call neurologist office for follow up appointment: [phone]
--- NOTE | 2024-10-10 09:14 | PC.NURSE ---
Follow up appt. with Adelaida Carrion NP on 10/13 @ 9am Follow up appt. with [facility] Neurology, [address] on 12/15 @ 1:40pm
--- NOTE | 2024-10-10 11:14 | CM.DCFOLLOWU ---
Person spoke with:patient How are you feeling?well How is your pain?none Did you understand your discharge instructions?yes Do you have any questions about your discharge instructions?no Were you given any prescriptions at discharge?no Were you able to get your prescriptions filled?n/a Do you understand how to take your medications as ordered?n/a Do you have any questions about your follow up appointment and do you plan to keep your follow up appointment? Let pt know we scheduled follows up with PCP and [facility] Neurology Is there anything else that you would like to discuss?no Questions/Comments/Concerns/Other:none
== END 2024-10-08 16:25 | disposition home or self-care (01) ==
LOC: ER 04:33 → MS 04:58
PROVIDERS: Admitting Provider Student in an Organized Health Care Education/Training Program; Emergency Provider Internal Medicine; PCP Nurse Practitioner; Visit Provider Student in an Organized Health Care Education/Training Program
DX: F12.929 Cannabis use, unspecified with intoxication, unspecified (principal); G93.41 Metabolic encephalopathy; I10 Essential (primary) hypertension; G47.33 Obstructive sleep apnea (adult) (pediatric); F41.9 Anxiety disorder, unspecified; F31.9 Bipolar disorder, unspecified; F19.11 Other psychoactive substance abuse, in remission; Z98.84 Bariatric surgery status; Z90.49 Acquired absence of other specified parts of digestive tract; Z87.891 Personal history of nicotine dependence; Z91.199 Patient's noncompliance with other medical treatment and regimen due to unspecified reason; F60.3 Borderline personality disorder; M79.7 Fibromyalgia; G25.81 Restless legs syndrome
CPT/HCPCS: 36415; 70450; 80048; 80179; 80307; 80320; 80329; 81001; 82140; 85025; 97162; 99285; G0378

== ENCOUNTER 2024-10-10 10:20 | Outpatient (OUT) | payer MEDICARE, SELFPAY ==
--- OUTSIDE RECORDS SUMMARY | 2020-04-11 07:00 | XMS_ITS | Continuity of Care Document ---
Author Organization [facility] Address [address] [place] [address] [place] [address] Phone Care Team Providers Care Ceo And Co Founder Name Role Phone Kayce Chanel CNP Unavailable [...] Copied on Encounter OFFICE/OUTPAT IENT VISIT, EST [facility], [address] [place] [address], [id number], [place] tel:[phone] [facility] No Information Darío Devries. [address] [place] [address], [id number], [place]. tel:[phone] Referring Provider: Kayce Chanel, [address] [place] [address] [address], [place], [address] . tel:[phone] [facility], [address] [place] [address] [address], [place], [place], [id number], [place] tel:[phone] [facility] No Information Darío Devries. [address], [place], [place], [id number], [place]. tel:[phone] Referring Provider: Kayce Chanel, [address] [place] [address] [address], [place], [address] . tel:[phone] [facility], [address] [place] [address] [address], [place], [place], [id number], [place] tel:[phone] [facility] No Information Darío Devries. [facility] [address] [facility] [address], [place], [place], [id number], [place]. tel:[phone] Referring Provider: Kayce Chanel, [address] [place] [address] [address], [place], [address] . tel:[phone] [facility], [address] [place] [address] [address], [place], [place], [id number], [place] tel:[phone] [facility] No Information Darío Devries. [facility] [address] [facility] [address], [place], [place], [id number], [place]. tel:[phone] Referring Provider: Kayce Chanel, [facility] [address] [facility] [address], [place], [address] . tel:[phone] [facility], [address] [place] [address] [address], [place], [place], [id number], [place] tel:[phone] [facility] No Information Darío Devries. [address] [place] [address] [address], [facility] [place], [id number], [place]. tel:[phone] Referring Provider: Kayce Chanel, [address] [place] [address] [address], [place], [address] . tel:[phone] [facility], [address] [place] [address] [address], [place], [id number], [place] tel:[phone] [facility] No Information Yulia Anguiano. [address] [facility] [address], [place], [place], [id number], [place]. tel:[phone] Referring Provider: Silvio Acevedo, [address] [facility] [address], [place], [address] . tel:[phone] OFFICE/OUTPAT IENT VISIT, [facility], [address] [place] [address] [address], [place], [place], [id number], [place] tel:[phone] [facility] No Information Yulia Anguiano. [address] [facility] [address], [place], [id number], [place]. tel:[phone] Referring Provider: Silvio Acevedo, [address] [facility] [address], [place], [address] . tel:[phone] [facility], [address] [place] [address] [address], [place], [id number], [place] tel:[phone] [facility] No Information No Information OFFICE/OUTPAT IENT VISIT, [facility], [address] [place] [address] [address], [place], [id number], [place] tel:[phone] [facility] No Information Yulia Anguiano. [address] [facility] [address], [place], [place], [id number], [place]. tel:[phone] Referring Provider: Silvio Acevedo, [address] [facility] [address], [place], [address] . tel:[phone] OFFICE/OUTPAT IENT VISIT, [facility], [address] [place] [address] [address], [place], [id number], [place] tel:[phone] [facility] No Information Yulia Anguiano. [address] [facility] [address], [place], [id number], [place]. tel:[phone] Referring Provider: Silvio Acevedo, [address] [facility] [address], [place], [address] . tel:[phone] OFFICE/OUTPAT IENT VISIT, [facility], [address] [facility] [address], [place], [place], [id number], [place] tel:[phone] [facility] No Information Yulia Anguiano. [address] [place] [address] [address], [place], [place], [id number], [place]. tel:[phone] Referring Provider: Silvio Acevedo, [address] [place] [address] [address], [place], [address] . tel:[phone] Family History Family Member Type Diagnosis Age At Onset No Information Payers Payer name Insurance type Covered republican ID Authorgerard thakur(s) [facility] [employer] 16 [id number] Social History Type Description Quantity Date Captured [...]
--- OUTSIDE RECORDS SUMMARY | 2024-10-08 12:51 | XMS_ITS ---
Author Organization OHIP Support Name Relationship Address Phone CONNER BE Spouse [address] [place] [address] + Conner Be Spouse [address] [place] [address] + Brigitte Urrutia NaturalDaughter Unknown +[phone] CONNER BE Spouse [address] [place] [address] + [place], CONNER Spouse [address] [place] [address] + [place], CONNER Spouse [address] [place] [address] + [place], CONNER Spouse [address] [place] [address] + [place], CONNER Spouse [address] [place] [address] + [place], CONNER Spouse [address] [place] [address] + [place], CONNER Spouse [address] [place] [address] + [place] CONNER [address] [place] [address] + [place] CONNER [address] [place] [address] + [place], CONNER Spouse [address] [place] [address] + [place], Conner Spouse [address] [place] [address] + [place], Brigitte NaturalDaughter Unknown +[phone] CONNER BE Spouse [address] [facility] [place] [address] + CONNER BE Spouse [address] [facility] [place] [address] + CONNER BE Spouse [address] [facility] [place] [address] + [place], CONNER Spouse [address] [facility] [place] [address] [place], CONNER Spouse [address] [facility] [place] [address] + [place], CONNER Spouse [address] [facility] [place] [address] + CONNER BE Spouse [address] [facility] [place] [address] + CONNER BE Spouse [address] [facility] [place] [address] + Care Team Providers Care Lion Hunter Name Role Phone ADELAIDA CARRION Primary Care Unavailable AKSHAT BLACKWELL Consulting Unavailable Adelaida Carrion Primary Care Unavailable Eduardo Monk Admitting Unavailab Eduardo Connolly Attending Unavailab Rob Walls Attending Unavailable Malinda Rosales Consulting Unavailable Delta Gan Admitting Unavailable Adelaida Carrion Primary Care Unavailable David Benjamin Consulting Unavailable Miriam Suarez Consulting Unavailable Jace Livingston Consulting Unavailable Kar Burt Consulting Unavailab Dennis Hicks Consulting Unavailable Suhas Caballero Consulting Unavailable Inna Melendez Consulting Unavailable Rocio Duncan Consulting Unavailable Chuck Hinkle Consulting Unavailable Jamee JAIMES, Syeda King Attending Unavailable Jamee JAIMES, Syeda King Attending Unavailable Jamee JAIMES, Syeda King Attending Unavailable Jamee JAIMES, Syeda King Attending Unavailable Jamee JAIMES, Syeda King Attending Unavailable Jamee JAIMES, Syeda King Attending Unavailable COMFORT, ADELAIDA Attending Unavailable ADOLPH, SUHAS Attending Unavailable SONAM WILLIAMSON Attending Unavailable ADOLPH, SUHAS Attending Unavailable AICHHOLNena, ADELAIDA Attending Unavailable AICHHOLZ, ADELAIDA Attending Unavailable AICHHOLZ, ADELAIDA Attending Unavailable SONAM WILLIAMSON Attending Unavailable NEIL, SUHAS Attending Unavailable AICHHOLNena, ADELAIDA Attending Unavailable AICHHOLNena, ADELAIDA Attending Unavailable EDWINHOLNena, ADELAIDA Attending Unavailable ADOLHP, SUHAS Attending Unavailable HUMBERTO SAHNI Attending Unavailable DAVID BENJAMIN Attending Unavailable ADOLPH, SUHAS Referring Unavailable COMFORT, ADELAIDA Attending Unavailable KAITLYN, HUMBERTO Referring Unavailable Purpose PROBLEMS DATE TYPE CONDITION / CODE ATTENDING STATUS [facility] 10/08/2024 Unknown Tele-neurology c onsult from [place]. / UNK(Unknown) NA [facility] 03/03/2024 Unknown Altered mental s tatus, unspecified / R41.82(ICD-10) [facility] 03/03/2024 Unknown Encephalopathy, unspecified / G93.40(ICD-10) [facility] 03/03/2024 Unknown Candidiasis of s kin and nail / B37.2(ICD-10) [facility] PROCEDURES No Procedure Records Found VITAL SIGNS No Vital Signs Records Found RESULTS COMPLETE BLOOD COUNT AUTO DIFF Collected: 03/05/2024 6:39 AM Status: F Source: F [facility] TYPE CODE TESTS RESULT OUT OF RANGE REFERENCE UNITS LAB WBC White Blood Count 9.6 Normal 3.8-11.6 10*3/uL LAB UNWBC Uncorrected WBC 9.6 Normal 3.8-11.6 10*3/uL LAB RBC Red Blood Count 4.94 Normal 3.60-5.00 10*6/u L LAB HGB Hemoglobin 14.3 Normal 11.8-15.4 g/dL LAB HCT Hematocrit 43.0 Normal 34.0-46.4 % LAB MCV Mean Corpuscular Volume 87.0 Normal 80-100 fL LAB MCH Mean Corpuscular Hemoglobin 29.0 Normal 24.7-34.3 pg LAB MCHC Mean Corpuscular HGB Conc 33.4 Normal 32.0-35.0 g/dL LAB RDW Red Cell Distribution Width 14.5 Normal 11.9-15.3 % LAB PLT Platelet Count 289 Normal 150-450 10*3/uL LAB MPV Mean Platelet Volume 8.9 Normal 6.3-10.7 fL LAB NE% Neutrophils % (Auto) 72.9 . % LAB LY% Lymphocytes % (Auto) 18.9 . % LAB MO% Monocytes % (Auto) 5.5 . % LAB EO% Eosinophils % (Auto) 2.2 . % LAB BA% Basophils % (Auto) 0.5 . % LAB NRBC% NRBC% 0.0 Normal 0-0.5 /100{WBC} LAB NE# Neutrophils # (Auto) 7.0 Normal 1.8-7.7 10*3/uL LAB LY# Lymphocytes # (Auto) 1.8 Normal 1.00-4.8 10*3/uL LAB MO# Monocytes # (Auto) 0.5 Normal 0.0-0.8 10*3/uL LAB EO# Eosinophils # (Auto) 0.2 Normal 0.0-0.45 10*3/uL LAB BA# Basophils # (Auto) 0.0 Normal 0.0-0.2 10*3/uL Result Comment: PERFORMED BY : [place] [address] PATHOLOGIST CONFERENCE PLANNING MANAGER ADIEL AGUSTIN M.D. Performed By: #### CBC, MG, CMP #### [facility] [address] [place] [address] COMPREHENSIVE METABOLIC PANEL Collected: 03/05/2024 6 :39 AM Status: F Source: [facility] TYPE CODE TESTS RESULT OUT OF RANGE REFERENCE UNITS LAB GLU Glucose 133 High 70-100 mg/dL Result Comment: Random Gluco se Reference Range is dependent on time and content of last meal. Glucose of more than 200 mg/dL in a nonstressed, ambulatory subject supports the diagnosis of Diabetes Mellitus. ADA recommended reference range LAB BUN Blood Urea Nitrogen 18 Normal 7-25 mg/d L LAB CREATT Creatinine 0.96 Normal 0.60-1.20 mg/dL LAB GFReNR Estimated GFR >60.0 mL/Min LAB NA Sodium 141 Normal 136-145 mmol/L LAB K Potassium 3.5 Normal 3.5-5.1 mmol/L LAB CL Chloride 106 Normal 98-107 mmol/L LAB CO2 Carbon Dioxide 23.1 Normal 21.0-31.0 mmol/L LAB GAP Anion Gap 15.4 High 6.0-15.0 meq/L LAB CA Calcium 9.5 Normal 8.6-10.3 mg/dL LAB TP Total Protein 7.7 Normal 6.4-8.9 g/dL LAB ALB Albumin Level 4.4 Normal 3.5-5.7 g/dL LAB GLOB Globulin 3.3 g/dL LAB AGRATIO Albumin/Globulin Ratio 1.3 LAB BILIT Bilirubin,Total 0.4 Normal 0.3-1.0 mg/dL LAB AST Aspartate Amino Transferase 36 Normal 13-39 U/L LAB ALT Alanine Aminotransferase 23 Normal 7-52 U/L LAB ALP Alkaline Phosphatase 79 Normal 34-104 U/L LAB CRCLPHA Creatinine Clr C alc Pharmacy 84.51 Performed By: #### CBC, MG, CMP #### [place] [id number] [facility] MAGNESIUM Collected: 4 6:39 AM Status: F Source: [facility] TYPE CODE TESTS RESULT OUT OF RANGE REFERENCE UNITS LAB MG Magnesium 2.0 Normal 1.9-2.7 mg/dL Result Comment: PERFORMED BY : [place] [address] PATHOLOGIST CONFERENCE PLANNING MANAGER ADIEL AGUSTIN M.D. Performed By: #### CBC, MG, CMP #### [facility] [address] [place], [place] [id number] [facility] MR HEAD/BRAIN WO/W CON Observed: 024 2:24 PM Status: COMPLETED Source: [facility] [place] [address] MRI Report Signed Patient: Nasim Be MR#: [id number] : 1960 Acct:[id number] Age/Sex: 63 / F ADM Date: 03/03/24 Loc: Room: [address] [place] [address] Type: ADM IN Attending Dr: Delta Gan [...] frontotemporal dementia is recommended. Impression dictated by: Shaheed Guadalupe M.D.03/04/2024 2:32 PM Dictation Location: [place] [address] Transcribed By: [facility] 03/04/24 1432 Dictated By: Shaheed Guadalupe II, MD 03/04/24 1424 Signed By: <Electronically signed by Shaheed Guadalupe II, MD in OV> 03/04/24 1432 COMPLETE BLOOD COUNT AUTO DIFF Collected: 03/04/2024 6:01 AM Status: F Source: F [facility] TYPE CODE TESTS RESULT OUT OF RANGE REFERENCE UNITS LAB WBC White Blood Count 10.3 Normal 3.8-11.6 10*3/uL LAB UNWBC Uncorrected WBC 10.3 Normal 3.8-11.6 10*3/uL LAB RBC Red Blood Count 5.01 High 3.60-5.00 10*6/u L LAB HGB Hemoglobin 14.4 Normal 11.8-15.4 g/dL LAB HCT Hematocrit 43.5 Normal 34.0-46.4 % LAB MCV Mean Corpuscular Volume 87.0 Normal 80-100 fL LAB MCH Mean Corpuscular Hemoglobin 28.8 Normal 24.7-34.3 pg LAB MCHC Mean Corpuscular HGB Conc 33.2 Normal 32.0-35.0 g/dL LAB RDW Red Cell Distribution Width 14.6 Normal 11.9-15.3 % LAB PLT Platelet Count 334 Normal 150-450 10*3/uL LAB MPV Mean Platelet Volume 8.8 Normal 6.3-10.7 fL LAB NE% Neutrophils % (Auto) 71.3 . % LAB LY% Lymphocytes % (Auto) 18.0 . % LAB MO% Monocytes % (Auto) 8.2 . % LAB EO% Eosinophils % (Auto) 1.9 . % LAB BA% Basophils % (Auto) 0.6 . % LAB NRBC% NRBC% 0.1 Normal 0-0.5 /100{WBC} LAB NE# Neutrophils # (Auto) 7.3 Normal 1.8-7.7 10*3/uL LAB LY# Lymphocytes # (Auto) 1.8 Normal 1.00-4.8 10*3/uL LAB MO# Monocytes # (Auto) 0.8 Normal 0.0-0.8 10*3/uL LAB EO# Eosinophils # (Auto) 0.2 Normal 0.0-0.45 10*3/uL LAB BA# Basophils # (Auto) 0.1 Normal 0.0-0.2 10*3/uL Result Comment: PERFORMED BY : [place] [address] PATHOLOGIST CONFERENCE PLANNING MANAGER ADIEL AGUSTIN M.D. Performed By: #### CMP, MG, CBC #### [place] [id number] [facility] COMPREHENSIVE METABOLIC PANEL Collected: 03/04/2024 6 :01 AM Status: F Source: [facility] TYPE CODE TESTS RESULT OUT OF RANGE REFERENCE UNITS LAB GLU Glucose 100 Normal 70-100 mg/dL Result Comment: Random Gluco se Reference Range is dependent on time and content of last meal. Glucose of more than 200 mg/dL in a nonstressed, ambulatory subject supports the diagnosis of Diabetes Mellitus. ADA recommended reference range LAB BUN Blood Urea Nitrogen 15 Normal 7-25 mg/d L LAB CREATT Creatinine 0.91 Normal 0.60-1.20 mg/dL LAB GFReNR Estimated GFR >60.0 mL/Min LAB NA Sodium 142 Normal 136-145 mmol/L LAB K Potassium 3.8 Normal 3.5-5.1 mmol/L LAB CL Chloride 107 Normal 98-107 mmol/L LAB CO2 Carbon Dioxide 27.4 Normal 21.0-31.0 mmol/L LAB GAP Anion Gap 11.4 Normal 6.0-15.0 meq/L LAB CA Calcium 9.6 Normal 8.6-10.3 mg/dL LAB TP Total Protein 7.7 Normal 6.4-8.9 g/dL LAB ALB Albumin Level 4.5 Normal 3.5-5.7 g/dL LAB GLOB Globulin 3.2 g/dL LAB AGRATIO Albumin/Globulin Ratio 1.4 LAB BILIT Bilirubin,Total 0.5 Normal 0.3-1.0 mg/dL LAB AST Aspartate Amino Transferase 37 Normal 13-39 U/L LAB ALT Alanine Aminotransferase 19 Normal 7-52 U/L LAB ALP Alkaline Phosphatase 79 Normal 34-104 U/L LAB CRCLPHA Creatinine Clr C alc Pharmacy 90.12 Performed By: #### CMP, MG, CBC #### [facility] [address] [place] [id number] [facility] MAGNESIUM Collected: 6:01 AM Status: F Source: [facility] TYPE CODE TESTS RESULT OUT OF RANGE REFERENCE UNITS LAB MG Magnesium 2.0 Normal 1.9-2.7 mg/dL Result Comment: PERFORMED BY : [place] [address] PATHOLOGIST CONFERENCE PLANNING MANAGER ADIEL AGUSTIN M.D. Performed By: #### CMP, MG, CBC #### [facility] [address] [place] [address] [facility] COMPLETE BLOOD COUNT AUTO DIFF Collected: 03/03/2024 4:19 PM Status: F Source: F [facility] Order Comment: RIN TO COME T RY,KAH,1607 TYPE CODE TESTS RESULT OUT OF RANGE REFERENCE UNITS LAB WBC White Blood Count 10.7 Normal 3.8-11.6 10*3/uL LAB UNWBC Uncorrected WBC 10.7 Normal 3.8-11.6 10*3/uL LAB RBC Red Blood Count 4.99 Normal 3.60-5.00 10*6/u L LAB HGB Hemoglobin 14.5 Normal 11.8-15.4 g/dL LAB HCT Hematocrit 42.9 Normal 34.0-46.4 % LAB MCV Mean Corpuscular Volume 85.9 Normal 80-100 fL LAB MCH Mean Corpuscular Hemoglobin 29.1 Normal 24.7-34.3 pg LAB MCHC Mean Corpuscular HGB Conc 33.8 Normal 32.0-35.0 g/dL LAB RDW Red Cell Distribution Width 14.6 Normal 11.9-15.3 % LAB PLT Platelet Count 291 Normal 150-450 10*3/uL LAB MPV Mean Platelet Volume 8.9 Normal 6.3-10.7 fL LAB NE% Neutrophils % (Auto) 74.3 . % LAB LY% Lymphocytes % (Auto) 15.7 . % LAB MO% Monocytes % (Auto) 8.4 . % LAB EO% Eosinophils % (Auto) 1.0 . % LAB BA% Basophils % (Auto) 0.6 . % LAB NRBC% NRBC% 0.1 Normal 0-0.5 /100{WBC} LAB NE# Neutrophils # (Auto) 8.0 High 1.8-7.7 10*3/uL LAB LY# Lymphocytes # (Auto) 1.7 Normal 1.00-4.8 10*3/uL LAB MO# Monocytes # (Auto) 0.9 High 0.0-0.8 10*3/uL LAB EO# Eosinophils # (Auto) 0.1 Normal 0.0-0.45 10*3/uL LAB BA# Basophils # (Auto) 0.1 Normal 0.0-0.2 10*3/uL Result Comment: PERFORMED BY : [facility] [address] [place] [address] PATHOLOGIST CONFERENCE PLANNING MANAGER ADIEL AGUSTIN M.D. Performed By: #### CBC, CMP #### [facility] [address] [place] [id number] [facility] COMPREHENSIVE METABOLIC PANEL Collected: 03/03/2024 4 :19 PM Status: F Source: [facility] Order Comment: RIN TO COME T WEN EDDY,1607 TYPE CODE TESTS RESULT OUT OF RANGE REFERENCE UNITS LAB GLU Glucose 105 High 70-100 mg/dL Result Comment: Random Gluco se Reference Range is dependent on time and content of last meal. Glucose of more than 200 mg/dL in a nonstressed, ambulatory subject supports the diagnosis of Diabetes Mellitus. ADA recommended reference range LAB BUN Blood Urea Nitrogen 15 Normal 7-25 mg/d L LAB CREATT Creatinine 0.93 Normal 0.60-1.20 mg/dL LAB GFReNR Estimated GFR >60.0 mL/Min LAB NA Sodium 141 Normal 136-145 mmol/L LAB K Potassium 4.0 Normal 3.5-5.1 mmol/L LAB CL Chloride 109 High 98-107 mmol/L LAB CO2 Carbon Dioxide 22.4 Normal 21.0-31.0 mmol/L LAB GAP Anion Gap 13.6 Normal 6.0-15.0 meq/L LAB CA Calcium 9.3 Normal 8.6-10.3 mg/dL LAB TP Total Protein 7.8 Normal 6.4-8.9 g/dL LAB ALB Albumin Level 4.6 Normal 3.5-5.7 g/dL LAB GLOB Globulin 3.2 g/dL LAB AGRATIO Albumin/Globulin Ratio 1.4 LAB BILIT Bilirubin,Total 0.3 Normal 0.3-1.0 mg/dL LAB AST Aspartate Amino Transferase 35 Normal 13-39 U/L LAB ALT Alanine Aminotransferase 16 Normal 7-52 U/L LAB ALP Alkaline Phosphatase 80 Normal 34-104 U/L LAB CRCLPHA Creatinine Clr C alc Pharmacy 87.94 Result Comment: PERFORMED BY : [facility] [address] [place] [address] PATHOLOGIST CONFERENCE PLANNING MANAGER ADIEL AGUSTIN M.D. Performed By: #### CBC, CMP #### [facility] [address] [place] [id number] [facility] ALLERGIES DATE TYPE / CODE NAME / CODE REACTION SEVERITY SOURCE 03/02/2024 Drug Allergy/4160 44316(SNOMED CT) tetracaine/[id number] 61(RXNORM) Unknown Reaction Unknown [facility] 03/02/2024 Drug Allergy/4160 93286(SNOMED CT) adhesive tape/[id number](RXN ORM) Rash Unknown [facility] 03/02/2024 Drug Allergy/4160 09565(SNOMED CT) penicillin G/[id number](RXNORM ) agitation Unknown [facility] Drug Class/523485 003(SNOMED CT) NO ALLERGY INFORMATION AVAILABLE [facility] ENCOUNTERS ADMIT/DISCHARGE ACCOUNT NUMBER ADMITTING ENCOUNTER CLASS LOCATION SOURCE 10/08/2024/ 025 [id number] [facility] TELESTROKEBe d: TELESTROKE BED [facility] 10/04/2024 [id number] Eduardo Monk [facility] 09/19/2024/ 025 [id number] Ambulatory PM [place]:PM [facility] 08/16/2024/ 025 [id number] Ambulatory Building:[facility] 08/08/2024/ 025 [id number] Ambulatory PM [place]:PM [facility] 07/27/2024/ 025 [id number] Ambulatory Building:[facility] 07/26/2024/ 025 [id number] Ambulatory Building:[facility] NEURO [facility] 07/18/2024/ 025 [id number] Ambulatory PM [place]:[facility] 05/24/2024/ 025 [id number] Ambulatory Building:[facility] NEURO [facility] 05/23/2024/ 025 [id number] Ambulatory PM [place]:PM [facility] 05/12/2024/ 025 [id number] Ambulatory Building:[facility] 05/09/2024/ 025 [id number] Ambulatory PM [place]:PM [facility] 04/07/2024/ 025 [id number] Ambulatory Building: NEURO [facility] 03/22/2024/ 024 [id number] Ambulatory Building:R NEURO [facility] 03/16/2024/ 024 [id number] Ambulatory Building:[facility] 03/14/2024/ 024 [id number] Ambulatory Building: NEURO [facility] 03/10/2024/ 024 [id number] Ambulatory Building:NOM S N NEURO [facility] 03/03/2024/ 024 [id number] Delta Gan [facility]counter [facility]TRoom: [id number]: 1 [facility] 03/01/2024/ 024 [id number] Ambulatory Building:R NEURO [facility] 02/16/2024/ 024 [id number] Ambulatory Building:[facility] 01/28/2024/ 024 [id number] Ambulatory Building:[facility] 01/25/2024/ 024 [id number] Ambulatory PM [place]:PM [facility] 01/04/2024/ 024 [id number] Ambulatory Building:[facility] 12/09/2023/ 024 [id number] Ambulatory Building:R NEURO [facility] 12/08/2023/ 024 [id number] Ambulatory Building:R NEURO [facility] 10/21/2023/ 024 [id number] Ambulatory Building:[facility] 10/14/2023/ 024 [id number] Ambulatory Building:[facility] NEURO [facility] FUNCTIONAL STATUS No Functional Status Records Found EQUIPMENT No Equipment Records Found PAYERS ENCOUNTER GUARANTOR PAYER SUBSCRIBER SOURCE 10/08/2024 NASIM BEB: [place], [place] [address]Wom: (HP) Primary Insurance:[place] [place] - [place] RESIDENTPolicy Number: [id number] Date:2014-03-06 NASIM BEB: [id number] [place] [address] [facility] 10/04/2024 [place] [address]Ppu: (HP) Primary Insurance:Self PayPolicy Number: Effective Date:2022-07-23 [facility] Nasim BeB: [place] [address] Primary Insurance:[facility] Medicare SolutionsPolicy Number: Effective Date:1617-16-51Qzvg Name:[address]P [address] [place] [address]IJ: Nasim BeB: [id number] [place] [address] [facility] 08/16/2024 NASIM [place]B: [place] [address]Hjp: () Primary Insurance:[facility] MEDICAREPolicy Number: [id number] Date:2022-04-06 NASIM Vcikers ALEJANDRAJUANPABLOOWERDOB: [id number] [place] [address] [facility] 08/08/2024 Nasim Vickers AlejandrajuanpabloIngridB: [place] [address] Primary Insurance:[facility] Medicare SolutionsPolicy Number: Effective Date:2908-22-73Hmmy Name:MEDP [address] [place] [address]CG: Nasim DeanowerDOB: [id number] [facility] [place] [address] [facility] 07/27/2024 NASIM ROBERTSENHOWERDOB: [address] [facility] [place] [address]Ysj: (HP) Primary Insurance:UNITED [employer]CARE MEDICAREPolic Number: [id number] Date:2022-04-06 NASIM DEANOWERDOB: [id number] [facility] [place] [address] [facility] 07/26/2024 NASIM ROBERTSJUANPABLOOWERDOB: [address] [facility] [place] [address]Iwb: (HP) Primary Insurance:[employer] MEDICAREPolicy Number: [id number] Date:2022-04-06 NASIM DEANOWERDOB: [id number] [facility] [place] [address] [facility] 07/18/2024 Nasimmunira DeanowerDOB: [address] [facility] [place] [address] Primary Insurance:[employer] Medicare SolutionsPolicy Number: Effective Date:8924-93-82Kcqn Name:LIZETTE Curiel [address], [place] [address]XA: Nasim DeanowerDOB: [id number] [facility] [place] [address] [facility] 05/24/2024 NASIM Vickers ALEJANDRAENHOWERDOB: [address] [facility] [place] [address]Txs: (HP) Primary Insurance:UNITED HEALTHCARE MEDICAREPolic Number: [id number] Date:2022-04-06 NASIM Alee DEANOWERDOB: [id number] [place] [address] [facility] 05/23/2024 Nasim L MomoowerDOB: [place] [address] Primary Insurance:[employer] Medicare SolutionsPolicy Number: Effective Date:5522-47-45Ehvs Name:SHAR Curiel [address], [place] [address]AM: Nasim L MomoowerDOB: [id number] [place] [address] [facility] 05/12/2024 NASIM Alee DEANOWERDOB: [place] [address]Ial: (HP) Primary Insurance:[employer] MEDICAREPolicy Number: [id number] Date:2022-04-06 NASIM Alee DEANOWERDOB: [id number] [place] [address] [facility] 05/09/2024 Nasim L MomoowerDOB: [place] [address] Primary Insurance:[employer] Medicare SolutionsPolicy Number: Effective Date:3714-21-73Gleh Name:SHAR Curiel [address], [place] [address]GH: Nasim Vickers MomoowerDOB: [id number] [place] [address] [facility] 04/07/2024 NASIM L ALEJANDRAENHOWERDOB: [place] [address]Gsn: (HP) Primary Insurance:UNITED HEALTHCARE MEDICAREPolic Number: [id number] Date:2022-04-06 NASIM Alee DEANOWERDOB: [id number] [place] [address] [facility] 03/22/2024 NASIM DEANOWERDOB: [address] [facility] [place] [address]Bvc: (HP) Primary Insurance:[employer]ARE MEDICAREPolicy Number: [id number] Date:2022-04-06 NASIM DEANOWERDOB: [id number] [facility] [place] [address] [facility] 03/16/2024 NASIM DEANOWERDOB: [address] [facility] [place] [address]Gin: (HP) Primary Insurance:[employer]ARE MEDICAREPolicy Number: [id number] Date:2022-04-06 NASIM DEANOWERDOB: [id number] [facility] [place] [address] [facility] 03/14/2024 NASIM DEANOWERDOB: [address] [facility] [place] [address]Myg: (HP) Primary Insurance:UNITED HE[employer]ARE MEDICAREPolicy Number: [id number] Date:2022-04-06 NASIM DEANOWERDOB: [id number] [facility] [place] [address] [facility] 03/10/2024 NASIM DE[place]OWERDOB: [place] [address]Crp: (HP) Primary Insurance:UNITED HEALTHCARE MEDICAREPolicy Number: [id number] Date:2022-04-06 NASIM DEANOWERDOB: [id number] [facility] [place] [address] [facility] EPIC 03/03/[address] [facility] [place] [address]Fdj: (HP) Primary Insurance:[facility] PFFSPolicy Number: [id number] Date:[id number] [address] [address]HW: Nasim BeDOB: [id number] [id number]: (HP) University [facility] 03/03/2024 Secondary Insurance:MedicarePoli cy Number: [id number] Date:2024-03-02 Nasim Vickers AlejandrajuanpabloowerDOB: [id number] [place] [id number]: (HP) [facility] 03/03/2024 Tertiary Insurance:Self PayPolicy Number: Effective Date:2024-03-02 [facility] NASIM Alee ROBERTSALEXB: [address] [place] [id number]: (HP) Primary Insurance:UNITED HEALTHCARE MEDICAREPolicy Number: [id number] Date:2022-04-06 NASIM Vickers ALEJANDRAJUANPABLOOWERDOB: [id number] [place] [id number] [facility] EPIC 02/16/2024 NASIM Alee ROBERTSJUANPABLOOWERDOB: [place] [phone]: (HP) Primary Insurance:UNITED HEALTHCARE MEDICAREPolicy Number: [id number] Date:2022-04-06 NASIM Alee DEANOWERDOB: [id number] [place] [address] [facility] EPIC 01/28/2024 NASIM ROBERTSJUANPABLOOWERDOB: [place] [phone]: (HP) Primary Insurance:UNITED HEALTHCARE MEDICAREPolicy Number: [id number] Date:2022-04-06 NASIM REYESB: [id number] [facility] [place] [address] [facility] EPIC 01/25/2024 Nasim Alee DeanowerDOB: S [facility] [place] [address] Primary Insurance:United Healthcare Medicare SolutionsPolicy Number: Effective Date:1258-07-22Teio Name:SHAR Curiel [address], [place] [address]WH: Nasim ReyesB: [id number] [place] [address] [facility] 01/04/2024 NASIM DEANOWERDOB: S [facility] [place] [address]Exh: (HP) Primary Insurance:UNITED HEALTHCARE MEDICAREPolicy Number: [id number] Date:2022-04-06 NASIM BEDOB: [id number] [facility] [place] [address] [facility] EPIC 12/09/2023 NASIM Alee DEANOWERDOB: S [facility] [place] [address]Cbr: (HP) Primary Insurance:UNITED HEALTHCARE MEDICAREPolicy Number: [id number] Date:2022-04-06 NASIM DEANOWERDOB: [id number] [address] [facility] [place] [address] [facility] EPIC 12/08/2023 NASIM DEANOWERDOB: [place] [address]Kvt: (HP) Primary Insurance:UNITED HEALTHCARE MEDICAREPolicy Number: [id number] Date:2022-04-06 NASIM REYESB: [id number] [place] [address] [facility] EPIC 10/21/2023 NASIM REYESB: [place] [address]Osf: () Primary Insurance:UNITED HEALTHCARE MEDICAREPolicy Number: [id number] Date:2022-04-06 NASIM REYESB: [id number] [place] [address] [facility] 10/14/2023 NASIM REYESB: [place] [address]Llk: () Primary Insurance:UNITED HEALTHCARE MEDICAREPolicy Number: [id number] Date:2022-04-06 NASIM REYESB: [id number] [place] [address] [facility] EPIC SOCIAL HISTORY No Social History Records Found FAMILY HISTORY No Family History Records Found ADVANCE DIRECTIVES No Advanced Directives Records Found INFORMATION SOURCE DATE CREATED AUTHOR AUTHOR'S KIRSTEN BOND 10/11/2024 LESLYE
--- OUTSIDE RECORDS SUMMARY | 2024-10-08 12:51 | XMS_ITS | Encounter Summary ---
Author Organization [employer] Sys tem Address [id number] [address] [place] [address] Care Team Providers Care Information Technology Intern Name Role Phone Adelaida Carrion Primary Care Provider Encounter Details Date Type Department Care Team (Late st Contact Info) Description 10/08/2024 12:51 PM EDT - 10/09/2024 6:17 PM EDT Emergency [facility] Tele Stroke [address] [place] [address] Discharge Disposition: Telemedicine Discharge Social History Tobacco Use Types Packs/Day Years [...] on file Sexual Orientation Not on file documented as of this encounter Medications at Time of Discharge gabapentin (NEURONTIN) 600 mg tabletIndications :Neuropathy 1 tablet po in the am (600mg) 1 tablet po at noon (600mg) an 2 tablets po at bedtime (1200mg) 120 tablet 5 05/04/2018 documented as of this encounter Miscellaneous Notes * Telehealth Consult - ANTONINO Rush - 10/08/2024 2:20 PM EDT Images from the original note were not included. Consults Tele-Neurology Telemedicine Consult Note Consent Statement: I discussed risks, benefits, and alternatives of a real-time synchronous audiovisual consultation with the patient (and any accompanying persons) including the risks that the patient's personal health details and medical records will be discussed over real-time, synchronous, interactive video/audio/telecommunication technology, the visitwill not be recorded without the express consent of both the provider and the patient, and that there are some limitations compared to vlls-fd-enxc evaluations. We elected to proceed. [facility]/ [facility] TELENEUROLOGY CONSULTATION NOTE Telemedicine consultation was requested on this patient. To the best of my ability the purpose of teleneurology was reviewed with patient prior to initiation of visit and verbal consent was obtained. Hospital: [facility] Patient Seen: Floor Neurology Consult Note Consult Date: 10/08/2024 Referring Physician: Reba att. providers found Reason for Consult I have been asked to see the patient in neurological consultation to render advice and opinion regarding altered mental status History of Present Illness Nasim Ingram is a 63 y.o. female with a past medical history of hypertension, bariatric surgery, OSMANY, COPD, fibromyalgia, RLS. Patient presented to [facility] after noting memory loss and confusion. Patient states that on October 07 she had drank a liquid marijuana drink and didn't wear her cpap and awoke with difficulty remembering. She was intermittently anxious. Her CT brain revealed no acute findings per report. Blood pressure was systolic 160s. Teleneurology was consulted for recommendations. Patient sitting up in bed. She is frustrated with her memory impairment. Nursing state that patientknows her name and the recent holiday but she didn't remember the month. She apparently didn't remember her daughters new last name. Past Medical History No past medical history on file. No past surgical history on file. Allergies Not on File Social History Marijuana use Family History No family history on file. REVIEW OF SYSTEMS: Review of Systems Constitutional: Positive for diaphoresis. HENT: Negative. Eyes: Negative. Respiratory: Negative. Negative for shortness of breath. Cardiovascular: Negative. Gastrointestinal: Negative. Endocrine: Negative. Genitourinary: Negative. Musculoskeletal: Negative. Skin: Negative. Allergic/Immunologic: Negative. Neurological: Negative for dizziness, speech difficulty, weakness and headaches. Memory loss Hematological: Negative. Psychiatric/Behavioral: Positive for sleep disturbance. The patient is nervous/anxious. Exam Bp: 160/90 HR 103 General appearance: Awake and alert, cooperative Cardiovascular: mild tachycardia Chest: Appears unlabored Extremities: Unable to tell through limits of video visit Abdomen: No overt distention noted through limits of video visit Skin: No rashes or lesions noted. Neurological Examination: Patient evaluation done through video consult. Patient currently sitting up in bed. Alert oriented x4. Participates and follows commands during exam. Symmetric face. EOMs intact. Speech is intact forcomprehension and expression. There is no dysarthria or aphasia. Raises all 4 extremities antigravity with no drift. Patient performs vzoizd-hd-iqqr testing successfully. Limited neuro examination given the limitations of video unable to test reflexes or motor strength. Lab Review No results found for this or any previous visit (from the past 24 hours). Imaging No results found. Clinical Impression: Nasim Ingram is a 63year old woman who presented to [facility] with altered mental status. Symptomatology is likely denial management representative of toxic metabolic encephalopathy. Patient does endorse that she drank a marijuana drink last night, she does take sleeping pills and she did not use her CPAP. Recommendations: Mri brain with and without contrast can be done outpatient if mri is not available on the weekned. Recommend consistent use of cpap Recommend sleep hygiene Do not recommend driving at this time with memory loss Patient is recommended to follow up with her established neurologist. I, ANTONINO Ron, assisted with documentation during the assessment of this patient. Please note case was done in collaboration with: Dr. beasley I have spent 45 minutes personally reviewing previous history, imaging, and performing a face to face physical assessment on this patient. If you have any further questions please feel free to contact us. Thank you for asking us to be part of this patient's care. [id number] Telestroke Consult from 30-50 minutes This note is dictated with the use of M*Modal.Please note that this dictation was completed with computer voice recognition software. Quite often unanticipated grammatical, syntax, homophones, and other interpretive errors are inadvertently transcribed by the computer software. Please disregard these errors. Please excuse any errors that have escaped final proofreading. ANTONINO Rush 10/09/24 0816 Cosigned by Jeannette Beasley DO at 10/09/2024 8:30 AM EDT documented in this encounter Plan of Treatment Not on file documented as of this encounter Visit Diagnoses Not on filedocumented in this encounter Care Teams Information Technology Intern Relationship Specialty Start Date End Date Adelaida Carrion APRN-CNP PCP - General Nurse Practitioner 12/10/16 documented as of this encounter
--- OUTSIDE RECORDS SUMMARY | 2024-10-10 10:23 | XMS_ITS | Clinical Summary ---
Author Organization Gilberto Rush [facility] Address [address] [place] [address] Care Team Providers Care Leadership Intern Name Role Phone Adelaida Carrion APRN - [...] mouth daily Active Multiple Vitamins-Minera ls (THERAPEUTIC MULTIVITAMIN-IA NERALS) tablet Take 1 tablet by mouth [...] = 0.6 oz pur e alcohol) Rarely [facility] Utilities Answer Date Recorded In [...] slept in a chcf (including now)? No 08/24/2023 Food Insecurity Answer [...] - 145 mmol/L 01/20/2024 11:15 PM EDT [facility] Potassium 4.6 3.7 - 5.3 mmol/L 01/20/2024 11:15 PM EDT [facility] Comment: Specimen hemolysis has exceeded the interference as defined by Paul. Value may be falsely increased. Suggest recollection if clinically indicated. Chloride 106 98 - 107 mmol/L 01/20/2024 11:15 PM EDT [facility] CO2 24 20 - 31 mmol/L 01/20/2024 11:15 PM T [facility] Anion Gap 10 9 - 16 mmol/L 01/20/2024 11:15 PM EDT [facility] Glucose 97 74 - 99 mg/dL 01/20/2024 11:15 PM T [facility] BUN 17 8 - 23 mg/dL 01/20/2024 11:15 PM T [facility] Creatinine 1.2(H) 0.50 - 0.90 mg/dL 01/20/2024 11:15 PM T [facility] Est, Glom Filt Rate 54(L) >60 mL/min/1.7 3m2 01/20/2024 11:15 PM EDT [facility] Comment: These results are not [...] 9 - 20 01/20/2024 11:15 PM EDT [facility] Calcium 8.8 8.6 - 10.4 mg/dL 01/20/2024 11:15 PM T [facility] Total Protein 6.5(L) 6.6 - 8.7 g/dL 01/20/2024 11:15 PM T [facility] Albumin 3.9 3.5 - 5.2 g/dL 01/20/2024 11:15 PM T [facility] Albumin/Globulin Ratio 1.5 1.0 - 2.5 01/20/2024 11:15 PM EDT [facility] Total Bilirubin 0.2 0.00 - 1.20 mg/dL 01/20/2024 11:15 PM T [facility] Alkaline Phosphatase 86 35 - 104 U/L 01/20/2024 11:15 PM EDT [facility] ALT 20 10 - 35 U/L 01/20/2024 11:15 PM T [facility] AST 27 10 - 35 U/L 01/20/2024 11:15 PM T [facility] Blood BLOOD SPECIMEN / Unknown 01/20/2024 11:15 PM EDT 01/21/2024 12:31 AM EDT us Rochelle Lopes MD CHEMISTRY ORDERABLES Final Resul t [facility] [address] [place] [address], [facility] [phone] from Last 3 Months or Most Recently Relevant to Health Maintenance Insurance Advance Directives Documents on File Type Date Recorded Patient Director Of Property Management Expl anation ACP-Advance Directive 09/04/2023 1:02 PM * Full Code (Latest Code Status on File) Date Activated Date Inactivated Comments 08/24/2023 3:10 PM 09/03/2023 6:08 PM Care Teams Leadership Intern Relationship Specialty Start Date End Date Adelaida Carrion, JAP[employer]ESE T[employer]OR - [employer] CUTTER [address] [place] [address] PCP - General Nurse Practitioner 01/04/18
--- OUTSIDE RECORDS SUMMARY | 2024-10-10 10:23 | XMS_ITS | Encounter Summary ---
Author Organization [facility] Address [address] [place] [address] Care Team Providers Care Breast Buffer Name Role Phone Miriam Suarez DO Unavailable [phone] Adelaida Carrion NP Unavailable [phone] José Luis Roberts MD Primary Care Provider [phone] Bong Rosado MA Unavailable [phone] Juany Leggett Unavailable Reason for Visit * Reason Onset Date Comments Med Refill 07/08/2024 Encounter Details Date Type Department Care Team (Late st Contact Info) Description 07/08/2024 Refill [facility] [address] [place] [address] José Luis Roberts MD [address] [place] [address] Social History Tobacco Use Types [...] How often do you attend jainism or yazidism serv ices? Never 08/16/2023 Do you belong [...] Recorded Patient Health Questionnaire-2 Score 2 09/21/2023 [facility] [place] of Occupat ional Health - Occupational Stress [...] LU - 07/19/2024 9:59 AM EDT Text School Counsellor Hi, this is Nasim Ingram. My date of versus 9161 was calling about the dilkon that I requested to be called in yesterday. There is nothing at drug more yet. Thank you. * Telephone Encounter - VALERIE LU - 07/18/2024 10:57 AM EDT Text School Counsellor Adelaida Fraser, this is Nasim Ingram. Surendra [phone] need to have you call in a prescription for [place] to the pharmacy at [facility], Dr. Ricci, other yeast infection, thank you. * Telephone Encounter - Adelaida Carrion NP - 07/13/2024 9:04 PM EDT Ordered by pain mgmt documented in this encounter Plan of Treatment Upcoming Encounters Date Type Department Care Team (Late st Contact Info) Description 10/13/2024 9:00 AM EDT [facility] [address] [place] [address] Adelaida Carrion NP [address] [place] [address] 11/14/2024 9:40 AM EDT Office Visit [facility] [address] [place] [address] Adelaida Carrion NP [address] [place] [address] documented as of this encounter Visit Diagnoses Not on filedocumented in this encounter Additional Health Concerns Assessment Noted Time PHQ-9 Depression Total Score: 8 05/18/19 24 5:00 PM EST documented as of this encounter Care Teams Breast Buffer Relationship Specialty Start Date End Date José Luis Roberts MD [address] [place] [address] PCP - General Family Medicine 02/02/24 Miriam Suarez DO [address] [place], [place] [id number] Referring Physician Neurology 06/29/23 Adelaida Carrion NP [address] [place] [address] Nurse Practitioner Family Medicine 01/27/24 Bong Rosado MA [address] [place] [address] Family Medicine 02/12/24 Juany Leggett PA [address] [place], [place] [id number] Physician [employer]ement [employer] Con[employer] Plant Worker Neurology 07/26/24 documented as of this encounter
--- OUTSIDE RECORDS SUMMARY | 2024-10-10 10:23 | XMS_ITS | Clinical Summary ---
Author Organization [facility] Healthcare Address [address] [place] [address] Care Team Providers Care Associate Artistic Director Name Role Phone Miriam Suarez DO Unavailable [phone] Adelaida Carrion NP Unavailable [phone] José Luis Roberts MD Primary Care Provider [phone] Bong Rosado MA Unavailable [phone] Juany Leggett Unavailable Allergies Active Allergy Reactions Criticality Noted Date Comments Eszopiclone Hallucinations,Anaph ylaxis High 09/21/2023 Altered mental status and non responsive Levetiracetam Hallucinations,Other Medium 12/12/2021 Milnacipran Hallucinations,Other ,Unknown Medium 12/12/2021 Other Other 12/12/2021 Penicillins Anaphylaxis High 12/12/2021 Prochlorperazine Unknown,Other Medium 12/12/2021 Tetracycline Hives,Unknown High 12/12/2021 Wound Dressing Adhesive Rash,Unknown Medium 09/19/2022 Medications Multiple Vitamins-Minerals (BARIATRIC MULTIVITAMINS/IRO N PO) Pt taking OTC (Energy Micro) Active biotin 5 MG tablet Pt taking OTC (Energy Micro) Active Calcium Citrate-Vitamin D (CITRACAL + D PO) Pt taking OTC ([employer]) Active Magnesium 400 MG capsule Pt taking OTC(LP Amina) Active traZODone (Desyrel) 150 MG tablet Take [...] the ECHO on file from 05/10/2019 at [facility], as well as ECHO report from Mara Sampson earlier this year Well woman exam with routine gynecological exam 02/16/2024 Assessment & Plan (02/16/2024 6:57 AM EST): THIN PREP, fu as per PAP results indicate Monthly BSE Calcium/vit D supplement unless chronic conditions indicate not Exercise as chronic conditions allow Needs flu shot 01/28/2024 AVM (arteriovenous malformation) brain ([facility]) 10/11/2023 Vascular malformation ([facility]) 10/11/2023 Brain lesion 10/11/2023 Carpal tunnel [...] (09/21/2023 12:47 PM EDT): Reviewed notes from [facility]'s Former cigarette smoker 08/17/2023 Overview (08/19/2023): [...] your machine and tubing/filters etc: [facility] your OSMANY: Daniela Assessment [...] 1 twice a day #14 pills, Lot [id number], exp 06/29 Acute cough 07/14/2023 10/21/2023 Assessment & Plan (08/17/2023 10:06 AM EDT): resolved Influenza 07/14/2023 10/21/2023 Acute cystitis with hematuria 05/21/2023 10/21/2023 Right sided weakness 05/18/2023 024 Hemorrhoid 05/18/2023 03/16/2024 Overview (05/18/2023): int/external hemorrhoids Brain vascular malformation ([facility]) 05/18/2023 03/16/2024 Constipation 05/18/2023 08/17/2023 Colon [...] Encounters Date Type Department Care Team Description 10/10/2024 Abstract [facility] [address] [place] [address] Adelaida Carrion, BRIANA 10/10/2024 [facility] [address] [place] [address] Adelaida Carrion, BRIANA 10/10/2024 Abstract [facility] [address] [place] [address] Adelaida Carrion, BRIANA 09/29/2024 Abstract [facility] [address] [place] [address] Adelaida Carrion, BRIANA 09/29/2024 Clinisync Result Encounter [facility]OMS External Department Unsolicited Provider, Generic External Data 09/26/2024 Clinisync Result Encounter [facility] External Department Unsolicited Adelaida Carrion NP 09/26/2024 Clinisync Result Encounter [facility] External Department Unsolicited Adelaida Carrion NP 09/26/2024 Clinisync Result Encounter NOMS External Department Unsolicited Provider, Generic External Data 09/21/2024 Patient Outreach [facility] [address] [place] [address] Bong Rosado MA 09/19/2024 Abstract [facility] [address] [place] [address] Adelaida Carrion NP 08/30/2024 Patient Outreach [facility] [address] [place] [address] Bong Rosado MA 08/16/2024 11:30 AM EDT Office Visit [facility] [address] [place] [address] Adelaida Carrion NP Primary hypertension (Primary Dx); Bronchitis; Bilateral lower extremity edema; Morbid (severe) obesity due to excess calories ([facility]); Pre-diabetes; Allergic rhinitis, unspecified seasonality, unspecified trigger; Encounter for screening mammogram for malignant neoplasm of breast; Former cigarette smoker 08/16/2024 Bamboo flowsheet [facility] [address] [place] [address] Adelaida Carrion NP 08/08/2024 Abstract [facility] [address] [place] [address] José Luis Roberts MD 07/27/2024 11:30 AM EDT Office Visit [facility] [address] [place] [address] Adelaida Carrion NP Primary hypertension (Primary Dx); Morbid (severe) obesity due to excess calories ([facility]); Essential (primary) hypertension ; Allergic rhinitis, unspecified; Gastro-esophageal reflux disease without esophagitis; Bilateral lower extremity edema; Bronchitis 07/27/2024 Bamboo flowsheet [facility] [address] [place] [address] Adelaida Carrion NP 07/26/2024 11:00 AM EDT Office Visit [facility] [address] [place] [address], [place] [address] Juany Leggett PA OSMANY (obstructive sleep apnea) (Primary Dx); Restless leg; 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HCC); Concentration deficit 07/26/2024 Patient Outreach [facility] [address] [place] [address] Bong Rosado MA 07/26/2024 Bamboo flowsheet [facility] [address] [place] [address] Juany Leggett PA from Last 3 Months [...] How often do you attend caodaism or jehovah's witness serv ices? Never 08/16/2023 [...] Patient Health Questionnaire-2 Score 2 09/21/2023 [facility] - Occupational Stress Questionnaire Answer Date [...] 10/13/2024 9:00 AM EDT Office Visit [facility] [address] [place] [address] Adelaida Carrion, BRIANA [address] [place] [address] 11/14/2024 9:40 AM EDT Office Visit [facility] [address] [place] [address] Adelaida Carrion, BRIANA [address] [place] [address] Health Maintenance Due Date Last Done Comments [...] EDT Narrative 09/29/2024 11:26 [place] [address] XRay Report Signed Patient: NASIM BE MR#: [id number] : 1960 Acct:[id number] Age/Sex: 63 / F ADM Date: 09/29/24 Loc: [facility] Attending Dr: Elizabeth Culp NP Ordering Physician: Elizabeth Culp NP Date of Service: 09/29/24 Procedure(s): XR hip BHUMI Accession Number(s): [id number] cc: Adelaida Carrion NP; Elizabeth Culp NP [facility] [place] [address] Patient Name: NASIM BE MRN: [id number] date: 1960 Sex: F Assigned Patient Location: [facility] Current Patient Location: [facility] Accession/Order Number: [id number] Exam Date: 09/29/2024 11:20 Report Date: 09/29/2024 [...] Bernal M.D. 09/29/2024 11:23 AM Dictation Location: [place] [address] Electronically authenticated by: [id number] Y Date: 09/29/2024 11:23 Dictated By: Edith Bernal M.D. Signed By: 09/29/24 1126 DD/ 1123 TD/TT: Supervisor Transcribing Operators: Procedure Note Radiology, Radiologist, MD - 09/29/2024 [place] [address] XRay Report Signed Patient: NASIM BE LMR#: [id number] : 1960cct:[id number] Age/Sex: 63 / FADM Date: 09/29/24 Loc: [facility] Attending Dr: Elizabeth Culp NP Ordering Physician: Elizabeth Culp NP Date of Service: 09/29/24 Procedure(s): XR hip BHUMI Accession Number(s): [id number] cc: Adelaida Carrion NP; Elizabeth Culp NP [facility] [place] [address] Patient Name: NASIM BE MRN: [facility]:[id number] date: 1960 Sex: F Assigned Patient Location: [facility] Current Patient Location: [facility] Accession/Order Number: [id number] Exam Date: 09/29/2024 11:20 Report Date: 09/29/2024 [...] Bernal M.D. 09/29/2024 11:23 AM Dictation Location: [place] [address] Electronically authenticated by: [id number] Y Date: 1:23 Dictated By: Edith Bernal M.D. Signed By:09/29/24 1126 DD/ 1123 TD/TT: Supervisor Transcribing Operators: us Generic External Data Provider IMG XR PROCEDURES Final Result * CT LUNG SCREENING LOW DOSE (09/26/2024 5:02 PM EDT) Anatomical Region Laterality Modality Other 09/26/2024 5:02 PM EDT Narrative 09/26/2024 5:04 [place] [address] CT Scan Report Signed Patient: NASIM BE MR#: [id number] : 1960 Acct:[id number] Age/Sex: 63 / F ADM Date: 09/26/24 Loc: MAMMO Attending Dr: Adelaida Carrion NP Ordering Physician: Adelaida Carrion NP Date of Service: 09/26/24 Procedure(s): CT lung screening low-dose Accession Number(s): [id number] cc: Adelaida Carrion NP [place] [id number] Patient Name: NASIM BE MRN: [id number] date: 1960 Sex: F Assigned Patient Location: [facility] Current Patient Location: [facility] Accession/Order Number: [id number] Exam Date: 09/26/2024 16:58 Report Date: 09/26/2024 [...] Guadalupe M.D. 09/26/2024 5:02 PM Dictation Location: [place] [address] Electronically authenticated by: [id number] Y Date: 09/26/2024 17:02 Dictated By: Shaheed Guadalupe M.D. Signed By: 09/26/24 1704 DD/ 01 TD/TT: Supervisor Transcribing Operators: Procedure Note Radiology, Radiologist, MD - 09/26/2024 [place] [address] CT Scan Report Signed Patient: NASIM BE LMR#: [id number] : 2Acct:[id number] Age/Sex: 63 / FADM Date: 09/26/24 Loc: MAMMO Attending Dr: Adelaida Carrion NP Ordering Physician: Adelaida Carrion NP Date of Service: 09/26/24 Procedure(s): CT lung screening low-dose Accession Number(s): [id number] cc: Adelaida Carrion NP [address] [address] Patient Name: NASIM BE MRN: [id number] date: 1960 Sex: F Assigned Patient Location: [facility]MO Current Patient Location: [facility] Accession/Order Number: [id number] Exam Date: 09/26/2024 16:58 Report Date: 09/26/2024 [...] Guadalupe M.D. 09/26/2024 5:02 PM Dictation Location: [place] [address] Electronically authenticated by: [id number] Y Date: 7:02 Dictated By: Shaheed Guadalupe M.D. Signed By:09/26/241703 DD/ 01 TD/TT: Supervisor Transcribing Operators: Adelaida Carrion NP [facility] Final Result * MM TOMOSYNTHESIS SCREENING BI (09/26/2024 4:42 PM EDT) Anatomical Region Laterality Modality Other 09/26/2024 4:42 PM EDT Narrative 09/26/2024 4:43 [place] [address] Mammography Report Signed Patient: NASIM BE MR#: [id number] : 1960 Acct:[id number] Age/Sex: 63 / F ADM Date: 09/26/24 Loc: MAMMO Attending Dr: Adelaida Carrion NP Ordering Physician: Adelaida Carrion NP Results: Date of Service: 09/26/24 Follow Up: Procedure(s): MM tomosynthesis screening BI Accession Number(s): [id number] cc: Adelaida Carrion NP Patient Name: NASIM BE MR#: [id number] : 1960 Exam Date: 09/26/2024 Ordering Doctor: [...] Treatments None Family Cancers None LOCATION: [facility] BREAST COMPOSITION: There are scattered areas of [...] M.D. Signed By: 09/26/241642 DD/ 41 TD/TT: Supervisor Transcribing Operators: Procedure Note Radiology, Radiologist, MD - 09/26/2024 [place] [address] Mammography Report Signed Patient: NASIM BE LMR#: [id number] : 1960cct:[id number] Age/Sex: 63 / FADM Date: 09/26/24 Loc: MAMMO Attending Dr: Adelaida Carrion NP Ordering Physician: Adelaida Carrion NPResults: Date of Service: 09/26/24Follow Up: Procedure(s): MM tomosynthesis screening BI Accession Number(s): [id number] cc: Adelaida Carrion NP Patient Name: NASIM BE MR#: [id number] : 1960 Exam Date: 09/26/2024 Ordering Doctor: LIVIER CARRION JAVA ANALYST RADIOLOGY REPORT PROCEDURE: MM TOMOSYNTHESIS SCREENING BI [...] Treatments None Family Cancers None LOCATION: [facility] BREAST COMPOSITION: There are scattered areas of [...] Grover M.D. Signed By:09/26/241642 DD/ 41 TD/TT: Supervisor Transcribing Operators: us Adelaida Carrion NP [facility] Final Result * XR SHOULDER RT MIN 2V (09/26/2024 1:35 PM EDT) Anatomical Region Laterality Modality Other 09/26/2024 1:35 PM EDT Narrative 09/26/2024 1:38 [place] [address] XRay Report Signed Patient: NASIM BE MR#: [id number] : 1960 Acct:[id number] Age/Sex: 63 / F ADM Date: 09/26/24 Loc: RAD Attending Dr: Elizabeth Culp NP Ordering Physician: Elizabeth Culp NP Date of Service: 09/26/24 Procedure(s): XR shoulder RT min 2V Accession Number(s): [id number] cc: Adelaida Carrion NP; Elizabeth Culp NP [facility] [place] [id number] Patient Name: NASIM BE MRN: [id number] date: 1960 Sex: F Assigned Patient Location: [facility] Current Patient Location: [facility] Accession/Order Number: [id number] Exam Date: 09/26/2024 13:34 Report Date: 09/26/2024 [...] Guadalupe M.D. 09/26/2024 1:35 PM Dictation Location: [place] [address] Electronically authenticated by: [id number] Y Date: 09/26/2024 13:35 Dictated By: Shaheed Guadalupe M.D. Signed By: 09/26/24 1338 DD/ 34 TD/TT: Supervisor Transcribing Operators: Procedure Note Radiology, Radiologist, MD - 09/26/2024 The [place] [id number] XRay Report Signed Patient: NASIM BE LMR#: [id number] : 1960cct:[id number] Age/Sex: 63 / FADM Date: 09/26/24 Loc: [facility] Attending Dr: Elizabeth Culp NP Ordering Physician: Elizabeth Culp NP Date of Service: 09/26/24 Procedure(s): XR shoulder RT min 2V Accession Number(s): [id number] cc: Adelaida Carrion NP; Elizabeth Culp NP The [address] [address] Patient Name: NASIM BE MRN: [id number] date: 1960 Sex: F Assigned Patient Location: [facility] Current Patient Location: [facility] Accession/Order Number: [id number] Exam Date: 09/26/2024 13:34 Report Date: 09/26/2024 [...] Guadalupe M.D. 09/26/2024 1:35 PM Dictation Location: [place] [address] Electronically authenticated by: [id number] Y Date: 3:35 Dictated By: Shaheed Guadalupe M.D. Signed By:09/26/24 1338 DD/ 34 TD/TT: Supervisor Transcribing Operators: us Generic External Data Provider [facility] Final Result * POCT glycosylated hemoglobin (Hb A1C) docked device (08/16/2024 11:53 AM EDT) Hemoglobin A1C 5.6 Blood Venous blood specimen / Unknown 08/16/2024 11:53 AM EDT Adelaida Carrion NP POINT OF CARE TEST ENTER/EDIT O RDERABLES Final Result from Last 3 Months Insurance [employer] MEDICARE Advance Directives Documents on File Type Date Recorded Patient Awning Maker Expl anation Power of Retail Administrative Assistant 03/16/2024 9:42 AM darian r of forestry foreman Power of Retail Administrative Assistant 03/10/2024 3:12 PM POA Care Teams Associate Artistic Director Relationship Specialty Start Date End Date José Luis Roberts MD [address] [place] [address] PCP - General Family Medicine 02/02/24 Miriam Suarez DO [address] [place] [address] Referring Physician Neurology 06/29/23 Adelaida Carrion NP [address] [place] [address] Nurse Practitioner Family Medicine 01/27/24 Bong Rosado MA [address] [place] [address] Family Medicine 02/12/24 Juany Leggett PA [address] [place], [place] [address] Physician Director Stars Neurology 07/26/24
--- OUTSIDE RECORDS SUMMARY | 2024-10-10 10:23 | XMS_ITS | Encounter Summary ---
Author Organization [facility] Address [address] [place] [address] Care Team Providers Care [employer] Name Role Phone Adelaida Carrion NP Unavailable [phone] José Luis Roberts MD Primary Care Provider [phone] Miriam Suarez DO Unavailable [phone] Mathew Parra YOUTH CARE SPECIALIST Unavailable Unavailable Diana De Leon LPN Unavailable Unallocated, Noms Provider Primary Care Provi kellee Adelaida Carrion NP Unavailable [phone] José Luis Roberts MD Primary Care Provider [phone] Bong Rosado MA Unavailable [phone] Juany Leggett Unavailable Encounter Details Date Type Department Care Team (Late st Contact Info) Description 09/18/2023 Clinisync Result Encounter [facility] External Department Unsolicited Adelaida Carrion NP [address] [place] [address] Social History Tobacco Use Types Packs/Day Years [...] How often do you attend baptism or tenriism serv ices? Never 08/16/2023 Do [...] Patient Health Questionnaire-2 Score 2 09/21/2023 [facility] - [...] 10/13/2024 9:00 AM EDT Office Visit [facility] [address] [place] [address] Adelaida Carrion, BRIANA [address] [place] [address] 11/14/2024 9:40 AM EDT Office Visit [facility] [address] [place] [address] Adelaida Carrion, BRIANA [address] [place] [address] documented as of this encounter Procedures Procedure Name Priority Date/Time Associated Diagnosis Comments MM TOMOSYNTHESIS SCREENING BI 09/18/2023 1:42 PM EDT documented in this encounter Results * MM TOMOSYNTHESIS SCREENING BI (09/18/2023 1:42 PM EDT) Anatomical Region Laterality Modality Other 09/18/2023 1:42 PM EDT Narrative 09/18/2023 1:43 PM EDT The [place] [id number] Mammography Report Signed Patient: NASIM BE MR#: [id number] : 1960 Acct:[id number] Age/Sex: 62 / F ADM Date: 09/18/23 Loc: MAMMO Attending Dr: Adelaida Carrion NP Ordering Physician: Adelaida Carrion NP Results: Date of Service: 09/18/23 Follow Up: Procedure(s): MM tomosynthesis screening BI Accession Number(s): [id number] cc: Adelaida Carrion NP Patient Name: NASIM BE MR#: [id number] : 1960 Exam Date: 09/18/2023 Ordering Doctor: [...] Treatments None Family Cancers None LOCATION: [facility] BREAST COMPOSITION: There are scattered areas [...] Signed By: 09/18/23 1343 DD/ 134 TD/TT: Collection Manager: Procedure Note Radiology, Radiologist, - 09/18/[address] [address] Mammography Report Signed Patient: NASIM BE LMR#: [id number] : 1960cct:[id number] Age/Sex: 62 / FADM Date: 09/18/23 Loc: MAMMO Attending Dr: Adelaida Carrion NP Ordering Physician: Adelaida Carrion NPResults: Date of Service: 09/18/23Follow Up: Procedure(s): MM tomosynthesis screening BI Accession Number(s): [id number] cc: Adelaida Carrion NP Patient Name: NASIM BE MR#: [id number] : 1960 Exam Date: 09/18/2023 Ordering Doctor: LIVIER Carrion CNP RADIOLOGY REPORT PROCEDURE: MM TOMOSYNTHESIS SCREENING BI COMPARISON: MM TOMOSYNTHESIS SCREENING BI, 09/15/2022. MG [facility] [id number] BHUMI CAD, 06/20/2021. INDICATIONS: Screening Calculator Name NCI Breast Cancer Risk Assessment Tool 5 Year Breast Cancer Risk 2.20% Lifetime Breast Cancer Risk 10.30% Personal Breast Cancer No Personal Ovarian Cancer No Treatments None Family Cancers None LOCATION: [facility] BREAST COMPOSITION: There are scattered areas [...] M.D. Signed By:09/18/23 1343 DD/ 1342 TD/TT: Collection Manager: Adelaida Carrion NP [facility] Final Result documented in this encounter Visit Diagnoses Not on filedocumented in this encounter Additional Health Concerns Assessment Noted Time PHQ-9 Depression Total Score: 8 05/18/19 24 5:00 PM EST documented as of this encounter Care Teams [employer] Relationship Specialty Start Date End Date José Luis Roberts MD [address] [place] [address] PCP - General Family Medicine 05/18/23 01/26/24 Unallocated, Johan Sierra MD [address] [place] [address] PCP - General Family Medicine 01/27/24 02/01/24 José Luis Roberts MD [address] [place] [address] PCP - General Family Medicine 02/02/24 Adelaida Carrion NP Referring Physician Nurse Practitioner 10/14/22 Miriam Suarez DO [address] [place] [address] Referring Physician Neurology 06/29/23 Mathew Parra LPN Licensed Practical Nurse Family Medicine 07/23/23 Diana De Leon LPN [address] [place] [address] Licensed Practical Nurse Family Medicine 12/18/2302/11 Adelaida Carrion NP [address] Rodriguez[place]é [place] [address] Nurse Practitioner Family Medicine 01/27/24 Bong Rosado, [place] [address] [place] [address] Family Medicine 02/12/24 Junay Leggett PA [address] [facility] [address] [place] [address] Physician Interventional Radiology Technologist Neurology 07/26/24 documented as of this encounter
--- OUTSIDE RECORDS SUMMARY | 2024-10-10 10:23 | XMS_ITS | Encounter Summary ---
Author Organization [facility] Address [address] [place] [address] Care Team Providers Care Clinical Dermatologist Name Role Phone Miriam Suarez Unavailable [phone] Adelaida Carrion NP Unavailable [phone] José Luis Roberts MD Primary Care Provider [phone] Bong Rosado MA Unavailable [phone] Juany Leggett Unavailable Encounter Details Date Type Department Care Team (Late st Contact Info) Description 10/10/2024 Abstract [facility] [address] [place] [address] Adelaida Carrion, BRIANA [address] [place] [address] Social History Tobacco Use Types [...] How often do you attend hindu or advent serv ices? Never 08/16/2023 Do you belong to any clubs o r organizations such as hindu groups, unions, fraternal or athletic groups, or [...] Patient Health Questionnaire-2 Score 2 09/21/2023 [facility]at [facility] [...] Visit [facility] [address] [place] [address] Adelaida Carrion NP [address] [place] [address] 11/14/2024 9:40 AM EDT Office Visit [facility] [address] [place] [address] Adelaida Carrion, BRIANA [address] [place] [address] documented as of this encounter Visit Diagnoses Not on filedocumented in this encounter Additional Health Concerns Assessment Noted Time PHQ-9 Depression Total Score: 8 05/18/19 24 5:00 PM EST documented as of this encounter Care Teams Clinical Dermatologist Relationship Specialty Start Date End Date José Luis Roberts MD [address] [place] [address] PCP - General Family Medicine 02/02/24 Miriam Suarez DO [address] [place] [address] Referring Physician Neurology 06/29/23 Adelaida Carrion, BRIANA [address] [place] [address] Nurse Practitioner Family Medicine 01/27/24 Bong Rosado MA [address] [place] [address] Family Medicine 02/12/24 Juany Leggett PA [address] [place] [address] Physician Front End Alignment Specialist Neurology 07/26/24 documented as of this encounter
--- OUTSIDE RECORDS SUMMARY | 2024-10-10 10:23 | XMS_ITS | Encounter Summary ---
Author Organization [facility] Address [address] [place] [address] Care Team Providers Care Certified Orthotic Fitter Name Role Phone Miriam Suarez DO Unavailable [phone] Adelaida Carrion NP Unavailable [phone] José Luis Roberts MD Primary Care Provider [phone] Bong Rosado MA Unavailable [phone] Juany Leggett Unavailable Encounter Details Date Type Department Care Team (Late st Contact Info) Description 03/02/2024 Orders Only [facility] [address] [place] [address] Adelaida Carrion, BRIANA [address] [place] [address] Social History Tobacco Use Types Packs/Day Years [...] How often do you attend confucianism or anabaptist serv ices? Never 08/16/2023 Do [...] 09/21/2023 [facility] - Occupational Stress Questionnaire [...] Visit [facility] [address] [place] [address] Adelaida Carrion NP [address] [place] [address] 11/14/2024 9:40 AM EDT Office Visit [facility] [address] [place] [address] Adelaida Carrion NP [address] [place] [address] documented as of this encounter Procedures Procedure Name Priority Date/Time Associated Diagnosis Comments SCANNED LABS Routine 03/02/2024 7:33 AM EST documented in this encounter Results * SCANNED LABS (03/02/2024 7:33 AM EST) us Adelaida Carrion SPRAY DRIER OPERATOR HELPER LAB CHG PERFORMABLES Final Resu lt documented in this encounter Visit Diagnoses Not on filedocumented in this encounter Additional Health Concerns Assessment Noted Time PHQ-9 Depression Total Score: 8 05/18/19 24 5:00 PM EST documented as of this encounter Care Teams Certified Orthotic Fitter Relationship Specialty Start Date End Date José Luis Roberts MD [address] [place] [address] PCP - General Family Medicine 02/02/24 Miriam Suarez DO [address] [place] [address] Referring Physician Neurology 06/29/23 Adelaida Carrion, BRIANA [address] [place] [address] Nurse Practitioner Family Medicine 01/27/24 Bong Rosado MA [address] [place] [address] Family Medicine 02/12/24 Juany Leggett PA [address] [facility] [address] [place] [address] Physician Digital Measurement Advisor Neurology 07/26/24 documented as of this encounter
--- OUTSIDE RECORDS SUMMARY | 2024-10-10 10:23 | XMS_ITS | Encounter Summary ---
Author Organization [facility] Address [address] [place] [address] Care Team Providers Care Sheep And Wheat Farmer Name Role Phone Daniela Miriam GRAHAM Unavailable [phone] Adelaida Carrion NP Unavailable [phone] José Luis Roberts MD Primary Care Provider [phone] Bong Rosado MA Unavailable [phone] Juany Leggett Unavailable Encounter Details Date Type Department Care Team (Late st Contact Info) Description 09/26/2024 Clinisync Result Encounter [facility] External Department Unsolicited Adelaida Carrion, BRIANA [address] [place] [address] Social History Tobacco Use Types Packs/Day Years [...] How often do you attend christian or denominational serv ices? Never 08/16/2023 Do you belong [...] 9:00 AM EDT Office Visit [facility] [address] [place] [address] Adelaida Carrion NP [address] [place] [address] 11/14/2024 9:40 AM EDT Office Visit [facility] [address] [place] [address] Adelaida Carrion NP [address] [place] [address] documented as of this encounter Procedures Procedure Name Priority Date/Time Associated Diagnosis Comments CT LUNG SCREENING LOW DOSE 09/26/2024 5:02 PM EDT documented in this encounter Results * CT LUNG SCREENING LOW DOSE (09/26/2024 5:02 PM EDT) Anatomical Region Laterality Modality Other 09/26/2024 5:02 PM EDT Narrative 09/26/2024 5:04 [place] [address] CT Scan Report Signed Patient: NASIM INGRAM MR#: [id number] : 1960 Acct:[id number] Age/Sex: 63 / F ADM Date: 09/26/24 Loc: MAMMO Attending Dr: Adelaida Carrion NP Ordering Physician: Adelaida Carrion NP Date of Service: 09/26/24 Procedure(s): CT lung screening low-dose Accession Number(s): [id number] cc: Adelaida Carrion NP The [address] [id number] Patient Name: NASIM INGRAM MRN: [id number] date: 1960 Sex: F Assigned Patient [facility]: [facility] Current Patient Location: [facility] Accession/Order Number: [id number] Exam Date: 09/26/2024 16:58 Report Date: 09/26/2024 [...] Guadalupe M.D. 09/26/2024 5:02 PM Dictation Location: [place] [address] Electronically authenticated by: [id number] Y Date: 09/26/2024 17:02 Dictated By: Shaheed Guadalupe M.D. Signed By: 09/26/24 1704 DD/ 01 TD/TT: Adjunct Psychology Faculty Member: Procedure Note Radiology, Radiologist, MD - 09/26/2024 [place] [address] CT Scan Report Signed Patient: NASIM INGRAM LMR#: [id number] : 2Acct:[id number] Age/Sex: 63 / FADM Date: 09/26/24 Loc: MAMMO Attending Dr: Adelaida Carrion NP Ordering Physician: Adelaida Carrion NP Date of Service: 09/26/24 Procedure(s): CT lung screening low-dose Accession Number(s): [id number] cc: Adelaida Carrion NP [place] [id number] Patient Name: NASIM INGRAM MRN: [id number] date: 1960 Sex: F Assigned Patient Location: MAMMO Current Patient Location: [facility] Accession/Order Number: [id number] Exam Date: 09/26/2024 16:58 Report Date: 09/26/2024 [...] Guadalupe M.D. 09/26/2024 5:02 PM Dictation Location: [place] [address] Electronically authenticated by: [id number] Y Date: 7:02 Dictated By: Shaheed Guadalupe M.D. Signed By:09/26/24 170 DD/ 01 TD/TT: Adjunct Psychology Faculty Member: Adelaida Carrion NP [facility] Final Result documented in this encounter Visit Diagnoses Not on filedocumented in this encounter Additional Health Concerns Assessment Noted Time PHQ-9 Depression Total Score: 8 05/18/19 24 5:00 PM EST documented as of this encounter Care Teams Sheep And Wheat Farmer Relationship Specialty Start Date End Date José Luis Roberts MD [address] [place] [address] PCP - General Family Medicine 02/02/24 Miriam Suarez DO [address] [place], [place] [address] Referring Physician Neurology 06/29/23 Adelaida Carrion NP [address] [place] [address] Nurse Practitioner Family Medicine 01/27/24 Bong Rosado MA [address] [place] [address] Family Medicine 02/12/24 Juany Leggett PA [address] [place] [address] Physician Beater Out Leveling Machine Neurology 07/26/24 documented as of this encounter
--- OUTSIDE RECORDS SUMMARY | 2024-10-10 10:23 | XMS_ITS | Encounter Summary ---
Author Organization [facility] Address [address] [place] [address] Care Team Providers Care Inspector Paper Products Name Role Phone Miriam Suarez DO Unavailable [phone] Adelaida Carrion NP Unavailable [phone] José Luis Roberts MD Primary Care Provider Bong Rosado MA Unavailable [phone] Juany Leggett Unavailable Encounter Details Date Type Department Care Team (Late st Contact Info) Description 03/21/2024 Orders Only [facility] [address] [place] [address] Adelaida Carrion, BRIANA [address] [place] [address] Social History Tobacco Use Types Packs/Day Years [...] How often do you attend orthodox or uatsdin serv ices? Never 08/16/2023 Do [...] Health Questionnaire-2 Score 2 09/21/2023 [facility] - [...] Visit [facility] [address] [place] [address] Adelaida Carrion NP [address] [place] [address] 11/14/2024 9:40 AM EDT Office Visit [facility] [address] [place] [address] Adelaida Carrion, COMFORT FILLER [address] [place] [address] documented as of this encounter Procedures Procedure [...] * SCANNED LABS (03/21/2024 2:30 PM EST) [facility] LAB CHG PERFORMABLES Final Res ult * SCANNED LABS (03/21/2024 2:21 PM EST) Adelaida Carrion COMFORT FILLER LAB CHG PERFORMABLES Final Resu lt * ECG 12 lead (03/21/2024 2:19 PM EST) [facility] ECG ORDERABLES Final Result * ECG 12 lead (03/21/2024 2:15 PM EST) [facility] ECG ORDERABLES Final Result * ECG 12 lead (03/21/2024 2:10 PM EST) Clayton Galvan MD ECG ORDERABLES Final Result * ECG 12 lead (03/21/2024 2:07 PM EST) us Rochelle Keene MD ECG ORDERABLES Final Result * Complete echocardiogram dobutamine stress test (03/21/2024 2:03 PM EST) Anatomical Region Laterality Modality Ultrasound us Adelaida Carrion COMFORT FILLER CV ECHO PROCEDURES Final Result documented in this encounter Visit Diagnoses Not on filedocumented in this encounter Additional Health Concerns Assessment Noted Time PHQ-9 Depression Total Score: 8 05/18/19 24 5:00 PM EST documented as of this encounter Care Teams Inspector Paper Products Relationship Specialty Start Date End Date José Luis Roberts MD [address] [place] [address] PCP - General Family Medicine 02/02/24 Miriam Suarez DO [address] [place] [address] Referring Physician Neurology 06/29/23 Adelaida Carrion NP [address] [place] [address] Nurse Practitioner Family Medicine 01/27/24 Bong Rosado MA [address] [place] [address] Family Medicine 02/12/24 Juany Leggett PA [address] [place] [address] Physician Horticulturalist Neurology 07/26/24 documented as of this encounter
--- OUTSIDE RECORDS SUMMARY | 2024-10-10 10:23 | XMS_ITS | Encounter Summary ---
Author Organization [facility] Address [address] [place] [address] Care Team Providers Care Music Engineer Name Role Phone Adelaida Carrion NP Unavailable [phone] José Luis Roberts MD Primary Care Provider [phone] Miriam Suarez DO Unavailable [phone] Mathew Parra SHOTGUN SHELL REPRINTING UNIT OPERATOR Unavailable Unavailable Diana De Leon LPN Unavailable Unallocated, [facility] Provider Primary Care Provi kellee Adelaida Carrion NP Unavailable [phone] José Luis Roberts MD Primary Care Provider [phone] Bong Rosado MA Unavailable [phone] Juany Leggett Unavailable Encounter Details Date Type Department Care Team (Late st Contact Info) Description 09/02/2023 Orders Only [facility] [address] [place] [address] Shaikh Alberto MD [address] [place] [address] Social History Tobacco Use Types [...] declined 08/16/2023 How often do you attend religious or adventism serv ices? Never 08/16/2023 Do you belong to any clubs o r organizations such as religious groups, unions, fraternal or athletic groups, or [...] Recorded Patient Health Questionnaire-2 Score 0 08/17/2023 [facility] ional [facility] - [...] 10/13/2024 9:00 AM EDT Office Visit [facility] [address] [place] [address] Adelaida Carrion NP [address] [place] [address] 11/14/2024 9:40 AM EDT Office Visit [facility] [address] [place] [address] Adelaida Carrion NP [address] [place] [address] documented as of this encounter Procedures Procedure [...] documented as of this encounter Care Teams Music Engineer Relationship Specialty Start Date End Date José Luis Roberts MD [address] [place] [address] PCP - General Family Medicine 05/18/23 01/26/24 Unallocated, Johan Sierra MD [address] [place] [address] PCP - General Family Medicine 01/27/24 02/01/24 José Luis Roberts MD [address] [place] [address] PCP - General Family Medicine 02/02/24 Adelaida Carrion NP Referring Physician Nurse Practitioner 10/14/22 Miriam Suarez DO [address] [place], [place] [address] Referring Physician Neurology 06/29/23 Mathew Parra LPN Licensed Practical Nurse Family Medicine 07/23/23 Diana De Leon LPN [address] [place] [address] Licensed Practical Nurse Family Medicine 12/18/2302/11 Adelaida Carrion NP [address] [place] [address] Nurse Practitioner Family Medicine 01/27/24 Bong Rosado MA [address] [place] [address] Family Medicine 02/12/24 Juany Leggett PA [address] [place], [place] [address] Physician Residential Recycle Driver Neurology 07/26/24 documented as of this encounter
--- OUTSIDE RECORDS SUMMARY | 2024-10-10 10:23 | XMS_ITS | Encounter Summary ---
Author Organization [facility] Address [address] [place] [address] Care Team Providers Care Transportation Escort Name Role Phone Adelaida Carrion NP Unavailable [phone] José Luis Roberts MD Primary Care Provider [phone] Miriam Suarez DO Unavailable [phone] Mathew Parra PROCESS DESIGN ENGINEER Unavailable Unavailable Diana De Leon PROCESS DESIGN ENGINEER Unavailable Unallocated, Noms Provider Primary Care Provi kellee Adelaida Carrion NP Unavailable [phone] José Luis Roberts MD Primary Care Provider [phone] Bong Rosado MA Unavailable [phone] Juany Leggett Unavailable Encounter Details Date Type Department Care Team (Late st Contact Info) Description 09/21/2023 Orders Only [facility] [address] [place] [address] Adelaida Carrion NP [address] [facility] [place] [address] Social History Tobacco Use Types [...] How often do you attend rastafarian or taoism serv ices? Never 08/16/2023 Do [...] Recorded Patient Health Questionnaire-2 Score 2 09/21/2023 [facility] ional Health - Occupational [...] 10/13/2024 9:00 AM EDT Office Visit [facility] [address] [place] [address] Adelaida Carrion NP [address] [place] [address] 11/14/2024 9:40 AM EDT Office Visit [facility] [address] [place] [address] Adelaida Carrion NP [address] [place]José [place] [address] documented as of this encounter Procedures Procedure Name Priority Date/Time Associated Diagnosis Comments MM SCREENING MAMM WITH 3D JOSEF - US AND ADDITIONAL Routine 09/18/2023 8:06 AM EDT documented in this encounter Results * MM SCREENING MAMM WITH 3D JOSEF - US AND ADDITIONAL (09/18/2023 8:06 AM EDT) Anatomical Region Laterality Modality Radiographic Nelda ging us Adelaida Aichholz LOAN COLLECTOR IMG XR PROCEDURES Final Result documented in this encounter Visit Diagnoses Not on filedocumented in this encounter Additional Health Concerns Assessment Noted Time PHQ-9 Depression Total Score: 8 05/18/19 24 5:00 PM EST documented as of this encounter Care Teams Transportation Escort Relationship Specialty Start Date End Date José Luis Roberts MD [address] [place] [address] PCP - General Family Medicine 05/18/23 01/26/24 Unallocated, Johan Sierra MD [address] [place] [address] PCP - General Family Medicine 01/27/24 02/01/24 José Luis Roberts MD [address] [place] [address] PCP - General Family Medicine 02/02/24 Adelaida Carrion NP Referring Physician Nurse Practitioner 10/14/22 Miriam Suarez DO [address] [place] [address] Referring Physician Neurology 06/29/23 Mathew Parra LPN Licensed Practical Nurse Family Medicine 07/23/23 Diana De Leon LPN [address] [place] [address] Licensed Practical Nurse Family Medicine 12/18/2302/11 Adelaida Carrion NP [address] [place] [address] Nurse Practitioner Family Medicine 01/27/24 Bong Rosado MA [address] [place] [address] Family Medicine 02/12/24 Juany Leggett PA [address] [place] [address] Physician Tandem Mill Sticker Neurology 07/26/24 documented as of this encounter
--- OUTSIDE RECORDS SUMMARY | 2024-10-10 10:23 | XMS_ITS | Encounter Summary ---
Author Organization [facility] Address [address] [place] [address] Care Team Providers Care Agricultural Technician Name Role Phone Miriam Suarez Unavailable [phone] Adelaida Carrion NP Unavailable [phone] José Luis Roberts MD Primary Care Provider [phone] Bong Rosado MA Unavailable [phone] Juany Leggett Unavailable Encounter Details Date Type Department Care Team (Late st Contact Info) Description 10/10/2024 Abstract [facility] [address] [place] [address] Adelaida Carrion, BRIANA [address] [place] [address] Social History Tobacco Use Types [...] How often do you attend samaritan or baptism serv ices? Never 08/16/2023 Do [...] Recorded Patient Health Questionnaire-2 Score 2 09/21/2023 [facility] Occupat ional Health - [...] Visit [facility] [address] [place] [address] Adelaida Carrion NP [address] [place] [address] 11/14/2024 9:40 AM EDT Office Visit [facility] [address] [place] [address] Adelaida Carrion, BRIANA [address] [place] [address] documented as of this encounter Visit Diagnoses Not on filedocumented in this encounter Additional Health Concerns Assessment Noted Time PHQ-9 Depression Total Score: 8 05/18/19 24 5:00 PM EST documented as of this encounter Care Teams Agricultural Technician Relationship Specialty Start Date End Date José Luis Roberts MD [address] [place] [address] PCP - General Family Medicine 02/02/24 Miriam Suarez DO [address] [place] [address] Referring Physician Neurology 06/29/23 Adelaida Carrion, BRIANA [address] [place] [address] Nurse Practitioner Family Medicine 01/27/24 Bong Rosado MA [address] [place] [address] Family Medicine 02/12/24 Juany Leggett PA [address] [place] [address] Physician Homicide Squad Captain Neurology 07/26/24 documented as of this encounter
--- OUTSIDE RECORDS SUMMARY | 2024-10-10 10:23 | XMS_ITS | Encounter Summary ---
Author Organization [facility] Address [address] [place] [address] Care Team Providers Care School Aide Name Role Phone Miriam Suarez Unavailable [phone] Adelaida Carrion NP Unavailable [phone] José Luis Roberts MD Primary Care Provider Bong Rosado MA Unavailable [phone] Juany Leggett Unavailable Encounter Details Date Type Department Care Team (Late st Contact Info) Description 09/29/[address] [facility] [address] [place] [address] Adelaida Carrion, BRIANA [address] [place] [address] Social History Tobacco Use Types [...] How often do you attend cheondoism or oriental orthodox serv ices? Never 08/16/2023 [...] Recorded Patient Health Questionnaire-2 Score 2 09/21/2023 [facility] Occup[facility] ional Health - Occupational [...] Visit [facility] [address] [place] [address] Adelaida Carrion NP [address] [place] [address] 11/14/2024 9:40 AM EDT Office Visit [facility] [address] [place] [address] Adelaida Carrion, BRIANA [address] [place] [address] documented as of this encounter Visit Diagnoses Not on filedocumented in this encounter Additional Health Concerns Assessment Noted Time PHQ-9 Depression Total Score: 8 05/18/19 24 5:00 PM EST documented as of this encounter Care Teams School Aide Relationship Specialty Start Date End Date José Luis Roberts MD [address] [place] [address] PCP - General Family Medicine 02/02/24 Miriam Suarez DO [address] [place] [address] Referring Physician Neurology 06/29/23 Adelaida Carrion, BRIANA [address] [place] [address] Nurse Practitioner Family Medicine 01/27/24 Bong Rosado MA [address] [place] [address] Family Medicine 02/12/24 Juany Leggett PA [address] [place] [address] Physician Taproom Attendant Neurology 07/26/24 documented as of this encounter
--- OUTSIDE RECORDS SUMMARY | 2024-10-10 10:23 | XMS_ITS | Encounter Summary ---
Author Organization [facility] Address [address] [place] [address] Care Team Providers Care Patcher Helper Name Role Phone Miriam Suarez Unavailable [phone] Adelaida Carrion NP Unavailable [phone] José Luis Roberts MD Primary Care Provider Bong Rosado MA Unavailable [phone] Juany Leggett Unavailable Encounter Details Date Type Department Care Team (Late st Contact Info) Description 10/10/2024 Abstract [facility] [address] [place] [address] Adelaida Carrion, BRIANA [address] [place] [address] Social History Tobacco Use Types [...] How often do you attend temple or temple serv ices? Never 08/16/2023 Do you belong [...] Recorded Patient Health Questionnaire-2 Score 2 09/21/2023 [facility] Occupat ional Health - Occupational [...] Visit [facility] [address] [place] [address] Adelaida Carrion NP [address] [place] [address] 11/14/2024 9:40 AM EDT Office Visit [facility] [address] [place] [address] Adelaida Carrion, BRIANA [address] [place] [address] documented as of this encounter Visit Diagnoses Not on filedocumented in this encounter Additional Health Concerns Assessment Noted Time PHQ-9 Depression Total Score: 8 05/18/19 24 5:00 PM EST documented as of this encounter Care Teams Patcher Helper Relationship Specialty Start Date End Date José Luis Roberts MD [address] [place] [address] PCP - General Family Medicine 02/02/24 Miriam Suarez DO [address] [place] [address] Referring Physician Neurology 06/29/23 Adelaida Carrion, BRIANA [address] [place] [address] Nurse Practitioner Family Medicine 01/27/24 Bong Rosado MA [address] [place] [address] Family Medicine 02/12/24 Juany Leggett PA [address] [place] [address] Physician Entry Level Paralegal Neurology 07/26/24 documented as of this encounter
--- OUTSIDE RECORDS SUMMARY | 2024-10-10 10:23 | XMS_ITS | Encounter Summary ---
Author Organization [facility] Address [address] [place] [address] Care Team Providers Care Grocery Clerk Name Role Phone Miriam Suarez DO Unavailable [phone] Adelaida Carrion NP Unavailable [phone] José Luis Roberts MD Primary Care Provider [phone] Bong Rosado MA Unavailable [phone] Juany Leggett Unavailable Encounter Details Date Type Department Care Team (Late st Contact Info) Description 03/17/2024 Orders Only [facility] [address] [place] [address] Adelaida Carrion, BRIANA [address] [place] [address] Social History Tobacco Use Types Packs/Day Years [...] declined 08/16/2023 How often do you attend jew or buddhist serv ices? Never 08/16/2023 Do you belong to any clubs o r organizations such as jew groups, unions, fraternal or athletic groups, or [...] Questionnaire-2 Score 2 09/21/2023 [facility] - Occupational Stress [...] Visit [facility] [address] [place] [address] Adelaida Carrion NP [address] [place] [address] 11/14/2024 9:40 AM EDT Office Visit [facility] [address] [place] [address] Adelaida Carrion NP [address] [place] [address] documented as of this encounter Procedures Procedure [...] documented as of this encounter Care Teams Grocery Clerk Relationship Specialty Start Date End Date José Luis Roberts MD [address] [place] [address] PCP - General Family Medicine 02/02/24 Miriam Suarez DO [address] [place] [address] Referring Physician Neurology 06/29/23 Adelaida Carrion NP [address] [place] [address] Nurse Practitioner Family Medicine 01/27/24 Bong Rosado MA [address] [place] [address] Family Medicine 02/12/24 Juany Leggett PA [address] [place] [address] Physician Chemical Inspector Neurology 07/26/24 documented as of this encounter
--- OUTSIDE RECORDS SUMMARY | 2024-10-10 10:23 | XMS_ITS | Encounter Summary ---
Author Organization [facility] Address [address] [place] [address] Care Team Providers Care Oil Burner Servicer And Installer Name Role Phone Miriam Suarez DO Unavailable [phone] Adelaida Carrion NP Unavailable [phone] José Luis Roberts MD Primary Care Provider Bogn Rosado MA Unavailable [phone] Juany Leggett Unavailable Encounter Details Date Type Department Care Team (Late st Contact Info) Description 08/08/2024 Abstract [facility] [address] [place] [address] José Luis Roberts MD [address] [place] [address] Social History Tobacco Use Types [...] declined 08/16/2023 How often do you attend mosque or episcopalian serv ices? Never 08/16/2023 Do you belong to any clubs o r organizations such as mosque groups, unions, fraternal or athletic groups, or [...] 2 09/21/2023 [facility] - Occupational Stress Questionnaire Answer [...] [facility] [address] [place] [address] Adelaida Carrion NP [address] [place] [address] 11/14/2024 9:40 AM EDT Office Visit [facility] [address] [place] [address] Adelaida Carrion, BRIANA [address] [place] [address] documented as of this encounter Visit Diagnoses Not on filedocumented in this encounter Additional Health Concerns Assessment Noted Time PHQ-9 Depression Total Score: 8 05/18/19 24 5:00 PM EST documented as of this encounter Care Teams Oil Burner Servicer And Installer Relationship Specialty Start Date End Date José Luis Roberts MD [address] [place] [address] PCP - General Family Medicine 02/02/24 Miriam Suarez DO [address] [place] [address] Referring Physician Neurology 06/29/23 Adelaida Carrion, BRIANA [address] [place] [address] Nurse Practitioner Family Medicine 01/27/24 Bong Rosado MA [address] [place] [address] Family Medicine 02/12/24 Juany Leggett PA [address] [place] [address] Physician Panel Monitor Neurology 07/26/24 documented as of this encounter
--- OUTSIDE RECORDS SUMMARY | 2024-10-10 10:23 | XMS_ITS | Encounter Summary ---
Author Organization [facility] Address [address] [place] [address] Care Team Providers Care Painter Ordnance Name Role Phone Daniela Miriam DO Unavailable [phone] Adelaida Carrion NP Unavailable [phone] José Luis Roberts MD Primary Care Provider [phone] Bong Rosado MA Unavailable [phone] Juany Leggett Unavailable Encounter Details Date [...] How often do you attend anglican or mormonism serv ices? Never 08/16/2023 Do [...] [facility] of Occupat ional [facility] - Occupational Stress Questionnaire Answer [...] 9:00 AM EDT Office Visit [facility] [address] [place] [address] Adelaida Carrion NP [address] [place] [address] 11/14/2024 9:40 AM EDT Office Visit [facility] [address] [place] [address] Adelaida Carrion NP [address] [place] [address] documented as of this encounter Procedures Procedure Name Priority Date/Time Associated Diagnosis Comments XR HIPS BILATERAL 2 VW WITH OR WITHOUT PELVIS 09/29/2024 11:23 AM EDT documented in this encounter Results * XR hips bilateral 2 views (09/29/2024 11:23 AM EDT) Anatomical Region Laterality Modality Lower Extremities, Hip Bilateral Radiograp hic Imaging 09/29/2024 11:2 3 AM EDT Narrative 09/29/2024 11:26 AM EDT The [place] [id number] XRay Report Signed Patient: NASIM INGRAM MR#: [id number] : 1960 Acct:[id number] Age/Sex: 63 / F ADM Date: 09/29/24 Loc: RAD Attending Dr: Elizabeth Cano NP Ordering Physician: Elizabeth Cano NP Date of Service: 09/29/24 Procedure(s): XR hip BHUMI Accession Number(s): [id number] cc: Adelaida Carrion SILK SCREEN PRINTER HELPER; Elizabeth Cano NP The [address] [id number] Patient Name: NASIM INGRAM MRN: [id number] date: 1960 Sex: F Assigned Patient Location: RAD Current Patient Location: RAD Accession/Order Number: [id number] Exam Date: 09/29/2024 11:20 Report Date: 09/29/2024 [...] Bernal M.D. 09/29/2024 11:23 AM Dictation Location: [place] [address] Electronically authenticated by: [id number] Y Date: 09/29/2024 11:23 Dictated By: Edith Bernal M.D. Signed By: 09/29/24 1126 DD/ 1123 TD/TT: Glazing Machine Operator: Procedure Note Radiology, Radiologist, - 09/29/2024 [place] [address] XRay Report Signed Patient: NASIM INGRAM R#: [id number] : 1960cct:[id number] Age/Sex: 63 / FADM Date: 09/29/24 Loc: [facility] Attending Dr: Elizabeth Cano NP Ordering Physician: Elizabeth Cano NP Date of Service: 09/29/24 Procedure(s): XR hip BHUMI Accession Number(s): [id number] cc: Adelaida Carrion NP; Elizabeth Cano NP The [place] [id number] Patient Name: NASIM INGRAM MRN: [id number] date: 1960 Sex: F Assigned Patient Location: [facility] Current Patient Location: [facility] Accession/Order Number: [id number] Exam Date: 09/29/2024 11:20 Report Date: 09/29/2024 [...] Bernal M.D. 09/29/2024 11:23 AM Dictation Location: [place] [address] Electronically authenticated by: [id number] Y Date: 1:23 Dictated By: Edith Bernal M.D. Signed By:09/29/24 1126 DD/ 1123 TD/TT: Glazing Machine Operator: us Generic External Data Provider IMG XR PROCEDURES Final Result documented in this encounter Visit Diagnoses Not on filedocumented in this encounter Additional Health Concerns Assessment Noted Time PHQ-9 Depression Total Score: 8 05/18/19 24 5:00 PM EST documented as of this encounter Care Teams Painter Ordnance Relationship Specialty Start Date End Date José Luis Roberts MD [address] [place] [address] PCP - General Family Medicine 02/02/24 Miriam Suarez DO [address] [place] [address] Referring Physician Neurology 06/29/23 Adelaida Carrion NP [address] [place] [address] Nurse Practitioner Family Medicine 01/27/24 Bong Rosado MA [address] [place] [address] Family Medicine 02/12/24 Juany Leggett PA [address] [place] [address] Physician Torch Shearer Neurology 07/26/24 documented as of this encounter
--- OUTSIDE RECORDS SUMMARY | 2024-10-10 10:23 | XMS_ITS | Encounter Summary ---
Author Organization [facility] Address [address] [place] [address] Care Team Providers Care Md Physician Dermatologist Name Role Phone Adelaida Carrion NP Unavailable [phone] José Luis Roberts MD Primary Care Provider [phone] Miriam Suarez DO Unavailable [phone] Mathew Parra CORPORATE REAL ESTATE SPECIALIST Unavailable Unavailable Diana De Leon LPN Unavailable Unallocated, Noms Provider Primary Care Provi kellee Adelaida Carrion NP Unavailable [phone] José Luis Roberts MD Primary Care Provider [phone] Bong Rosado MA Unavailable [phone] Juany Leggett Unavailable Encounter Details Date Type Department Care Team (Late st Contact Info) Description 10/27/2023 Abstract [facility] [address] [place] [address] Unallocated, Noms Provider, [address] [place], [place] [address] Social History Tobacco Use Types Packs/Day Years [...] How often do you attend orthodox or bahai serv ices? Never 08/16/2023 Do [...] Recorded Patient Health Questionnaire-2 Score 2 09/21/2023 [facility] of Occupat ional Health - Occupational Stress [...] [facility] [address] [place] [address] Adelaida Carrion, BRIANA [address] [place] [address] 11/14/2024 9:40 AM EDT Office Visit [facility] [address] [place] [address] Adelaida Carrion NP [address] [place] [address] documented as of this encounter Visit Diagnoses Not on filedocumented in this encounter Additional Health Concerns Assessment Noted Time PHQ-9 Depression Total Score: 8 05/18/19 24 5:00 PM EST documented as of this encounter Care Teams Md Physician Dermatologist Relationship Specialty Start Date End Date José Luis Roberts MD [address] [place] [address] PCP - General Family Medicine 05/18/23 01/26/24 Unallocated, Johan Sierra MD [address] [place] [address] PCP - General Family Medicine 01/27/24 02/01/24 José Luis Roberts MD [address] [place] [address] PCP - General Family Medicine 02/02/24 Adelaida Carrion NP Referring Physician Nurse Practitioner 10/14/22 Miriam Suarez DO [address] [place] [address] Referring Physician Neurology 06/29/23 Mathew Parra LPN Licensed Practical Nurse Family Medicine 07/23/23 Diana De Leon LPN [address] [place] [address] Licensed Practical Nurse Family Medicine 12/18/2302/11 Adelaida Carrion NP [address] [place] [address] Nurse Practitioner Family Medicine 01/27/24 Bong Rosado, [place] [address] [place] [address] Family Medicine 02/12/24 Juany Leggett PA [address] [place], [place] [address] Physician Air Bag Stripper Neurology 07/26/24 documented as of this encounter
--- OUTSIDE RECORDS SUMMARY | 2024-10-10 10:23 | XMS_ITS | Encounter Summary ---
Author Organization [facility] Address [address] [place] [address] Care Team Providers Care Brake Drum Molder Name Role Phone Miriam Suarez DO Unavailable [phone] Adelaida Carrion NP Unavailable [phone] José Luis Roberts MD Primary Care Provider Bong Rosado MA Unavailable [phone] Juany Leggett Unavailable Reason for Visit * Reason Onset Date Comments Med Refill 04/12/2024 Encounter Details Date Type Department Care Team (Late st Contact Info) Description 04/12/2024 Refill [facility] [address] [place] [address] José Luis Roberts MD [address] [place] [address] Social History Tobacco Use Types [...] How often do you attend tenriism or shinto serv ices? Never 08/16/2023 Do you belong [...] Patient Health Questionnaire-2 Score 2 09/21/2023 [facility] of Occupat ional Health - Occupational Stress [...] [facility] [address] [place] [address] Adelaida Carrion NP [address] [place] [address] 11/14/2024 9:40 AM EDT Office Visit [facility] [address] [place] [address] Adelaida Carrion NP [address] [place] [address] documented as of this encounter Visit Diagnoses Not on filedocumented in this encounter Additional Health Concerns Assessment Noted Time PHQ-9 Depression Total Score: 8 05/18/19 24 5:00 PM EST documented as of this encounter Care Teams Brake Drum Molder Relationship Specialty Start Date End Date José Luis Roberts MD [address] [place] [address] PCP - General Family Medicine 02/02/24 Miriam Suarez DO [address] [place] [address] Referring Physician Neurology 06/29/23 Adelaida Carrion NP [address] [place] [address] Nurse Practitioner Family Medicine 01/27/24 Bong Rosado, [place] [address] [place] [address] Family Medicine 02/12/24 Juany Leggett PA [address] [facility] [address] [place] [address] Physician Lip Reading Teacher Neurology 07/26/24 documented as of this encounter
--- OUTSIDE RECORDS SUMMARY | 2024-10-10 10:23 | XMS_ITS ---
Author Organization [facility] Address [address] [place] [address] Care Team Providers Care Numerical Control Router Operator Name Role Phone Miriam Suarez DO Unavailable [phone] Adelaida Carrion NP Unavailable [phone] José Luis Roberts MD Primary Care Provider [phone] Bong Rosado MA Unavailable [phone] Juany Leggett Unavailable Chronic Care Management [...] Name Relationship Phone Bong Rosado MA(Responsible Staff) [phone] Continued Care and Services Coordination
--- OUTSIDE RECORDS SUMMARY | 2024-10-10 10:23 | XMS_ITS | Encounter Summary ---
Author Organization [facility] Address [address] [place] [address] Care Team Providers Care Maintenance Analyst Name Role Phone Daniela Miriam GRAHAM Unavailable [phone] Adelaida Carrion NP Unavailable [phone] José Luis Roberts MD Primary Care Provider Bong Rosado MA Unavailable [phone] Juany Leggett Unavailable Encounter Details Date Type Department Care Team (Late st Contact Info) Description 09/26/2024 Clinisync Result Encounter [facility] External Department Unsolicited Adelaida Carrion, BRIANA [address] [place] [address] Social History Tobacco Use Types Packs/Day Years [...] How often do you attend catholic or mormon serv ices? Never 08/16/2023 Do you belong [...] Visit [facility] [address] [place] [address] Adelaida Carrion NP [address] [place] [address] 11/14/2024 9:40 AM EDT Office Visit [facility] [address] [place] [address] Adelaida Carrion NP [address] [place] [address] documented as of this encounter Procedures Procedure Name Priority Date/Time Associated Diagnosis Comments MM TOMOSYNTHESIS SCREENING BI 09/26/2024 4:42 PM EDT documented in this encounter Results * MM TOMOSYNTHESIS SCREENING BI (09/26/2024 4:42 PM EDT) Anatomical Region Laterality Modality Other 09/26/2024 4:42 PM EDT Narrative 09/26/2024 4:43 [place] [address] Mammography Report Signed Patient: NASIM INGRAM MR#: [id number] : 1960 Acct:[id number] Age/Sex: 63 / F ADM Date: 09/26/24 Loc: MAMMO Attending Dr: Adelaida Carrion NP Ordering Physician: Adelaida Carrion NP Results: Date of Service: 09/26/24 Follow Up: Procedure(s): MM tomosynthesis screening BI Accession Number(s): [id number] cc: Adelaida Carrion NP Patient Name: NASIM INGRAM MR#: [id number] : 1960 Exam Date: 09/26/2024 Ordering Doctor: [...] Family Cancers None LOCATION: [facility] BREAST COMPOSITION: There are scattered areas of [...] M.D. Signed By: 09/26/241642 DD/ 41 TD/TT: Cardiology Physician: Procedure Note Radiology, Radiologist, MD - 09/26/2024 [place] [address] Mammography Report Signed Patient: NASIM INGRAM LMR#: [id number] : 1960cct:[id number] Age/Sex: 63 / FADM Date: 09/26/24 Loc: MAMMO Attending Dr: Adelaida Carrion NP Ordering Physician: Adelaida Carrion NPResults: Date of Service: 09/26/24Follow Up: Procedure(s): MM tomosynthesis screening BI Accession Number(s): [id number] cc: Adelaida Carrion NP Patient Name: NASIM INGRAM MR#: [id number] : 1960 Exam Date: 09/26/2024 Ordering Doctor: [...] Family Cancers None LOCATION: [facility] BREAST COMPOSITION: There are scattered areas of [...] Grover M.D. Signed By:09/26/241642 DD/ 41 TD/TT: Cardiology Physician: Adelaida Carrion NP [facility] Final Result documented in this encounter Visit Diagnoses Not on filedocumented in this encounter Additional Health Concerns Assessment Noted Time PHQ-9 Depression Total Score: 8 05/18/19 24 5:00 PM EST documented as of this encounter Care Teams Maintenance Analyst Relationship Specialty Start Date End Date José Luis Roberts MD [address] [place] [address] PCP - General Family Medicine 02/02/24 Miriam Suarez DO [address] [place] [address] Referring Physician Neurology 06/29/23 Adelaida Carrion NP [address] [place] [address] Nurse Practitioner Family Medicine 01/27/24 Bong Rosado, [place] [address] [place] [address] Family Medicine 02/12/24 Juany Leggett PA [address] [facility] [address] [place] [address] Physician Gasoline Catalyst Operator Neurology 07/26/24 documented as of this encounter
--- OUTSIDE RECORDS SUMMARY | 2024-10-10 10:23 | XMS_ITS | Encounter Summary ---
Author Organization [facility] Address [address] [place] [address] Care Team Providers Care Superintendent Terminal Name Role Phone Miriam Suarez DO Unavailable [phone] Adelaida Carrion NP Unavailable [phone] José Luis Roberts MD Primary Care Provider Bong Rosado MA Unavailable [phone] Juany Leggett Unavailable Encounter Details Date Type Department Care Team (Late st Contact Info) Description 03/08/2024 Orders Only [facility] [address] [place] [address] Dennis Steel DO Social History [...] How often do you attend catholic or scientologist serv ices? Never 08/16/2023 Do [...] Questionnaire-2 Score 2 09/21/2023 [facility] of Occupat ional Health - Occupational [...] Visit [facility] [address] [place] [address] Adelaida Carrion NP [address] [place] [address] 11/14/2024 9:40 AM EDT Office Visit [facility] [address] [place] [address] Adelaida Carrion, BRIANA [address] [place] [address] documented as of this encounter Procedures Procedure [...] documented as of this encounter Care Teams Superintendent Terminal Relationship Specialty Start Date End Date José Luis Roberts MD [address] [place] [address] PCP - General Family Medicine 02/02/24 Miriam Suarez DO [address] [place] [address] Referring Physician Neurology 06/29/23 Adelaida Carrion NP [address] [place] [address] Nurse Practitioner Family Medicine 01/27/24 Bong Rosado, [place] [address] [place] [address] Family Medicine 02/12/24 Juany Lgegett PA [address] [place] [address] Physician Feed Mill Supervisor Neurology 07/26/24 documented as of this encounter
--- OUTSIDE RECORDS SUMMARY | 2024-10-10 10:24 | XMS_ITS | Encounter Summary ---
Author Organization [facility] Address [address] [place] [address] Care Team Providers Care Lighting Technician Name Role Phone Adelaida Carrion NP Unavailable [phone] José Luis Roberts MD Primary Care Provider Miriam Suarez DO Unavailable [phone] Mathew Parra ARBOREAL SCIENTIST Unavailable Unavailable Mathew Parra ARBOREAL SCIENTIST Unavailable Unavailable Diana De Leon ARBOREAL SCIENTIST Unavailable Unallocated, Noms Provider Primary Care Provi kellee Adelaida Carrion NP Unavailable [phone] José Luis Roberts MD Primary Care Provider Bong Rosado MA Unavailable [phone] Juany Leggett Unavailable Encounter Details Date Type Department Care Team (Late st Contact Info) Description 05/19/2023 Clinisync Result Encounter [facility] External Department Unsolicited Adelaida Carrion NP [address] [place] [address] Social History Tobacco Use Types Packs/Day Years [...] Never 05/18/2023 How often do you attend uatsdin or cheondoism serv ices? Never 05/18/2023 Do you belong [...] Recorded Patient Health Questionnaire-2 Score 1 05/18/2023 [facility] - [facility]ational Stress Questionnaire [...] slept in a fdc (including now)? No 05/18/2023 Comments Unknown Sex [...] Visit [facility] [address] [place] [address] Adelaida Carrion NP [address] [place] [address] 11/14/2024 9:40 AM EDT Office Visit [facility] [address] [place] [address] Adelaida Carrion, BRIANA [address] [place] [address] documented as of this encounter Procedures Procedure Name Priority Date/Time Associated Diagnosis Comments XR HIP LT MIN 2V 05/19/2023 9:31 AM EST documented in this encounter Results * XR HIP LT MIN 2V (05/19/2023 9:31 AM EST) Anatomical Region Laterality Modality Other 05/19/2023 9:31 AM EST Narrative 05/19/2023 9:34 AM EST [address] [address] XRay Report Signed Patient: NASIM INGRAM MR#: [id number] : 1960 Acct:[id number] Age/Sex: 62 / F ADM Date: 05/19/23 Loc: [facility] Attending Dr: Adelaida Carrion BOTTOM LINER Ordering Physician: Adelaida Carrion NP Date of Service: 05/19/23 Procedure(s): XR hip LT min 2V Accession Number(s): [id number] cc: Adelaida Carrion NP [address] [address] Patient Name: NASIM INGRAM MRN: [id number] date: 1960 Sex: F Assigned Patient Location: [facility] Current Patient Location: [facility] Accession/Order Number: [id number] Exam Date: 05/19/2023 07:50 Report Date: 05/19/2023 [...] Dictated By: Harrison Maciel M.D. Signed By: 05/19/23933 DD/ 0 TD/TT: Equipment Coordinator: Procedure Note Radiology, Radiologist, MD - 05/19/2023 [place] [address] XRay Report Signed Patient: NASIM INGRAM LMR#: [id number] : 1960cct:[id number] Age/Sex: 62 / FADM Date: 05/19/23 Loc: [facility] Attending Dr: Adelaida Carrion NP Ordering Physician: Adelaida Carrion NP Date of Service: 05/19/23 Procedure(s): XR hip LT min 2V Accession Number(s): [id number] cc: Adelaida Carrion NP [place] [id number] Patient Name: NASIM INGRAM MRN: [id number] date: 1960 Sex: F Assigned Patient Location: [facility] Current Patient Location: [facility] Accession/Order Number: [id number] Exam Date: 05/19/2023 07:50 Report Date: 05/19/2023 [...] Maciel M.D. Signed By:05/19/2334 DD/ 0 TD/TT: Equipment Coordinator: Adelaida Carrion BOTTOM LINER [facility] Final Result documented in this encounter Visit Diagnoses Not on filedocumented in this encounter Additional Health Concerns Assessment Noted Time PHQ-9 Depression Total Score: 8 05/18/19 24 5:00 PM EST documented as of this encounter Care Teams Lighting Technician Relationship Specialty Start Date End Date José Luis Roberts MD [address] [place] [address] PCP - General Family Medicine 05/18/23 01/26/24 Unallocated, Noms ProviderMD [address] [facility] [place] [address] PCP - General Family Medicine 01/27/24 02/01/24 José Luis Roberts MD [address] [place] [address] PCP - General Family Medicine 02/02/24 Adelaida Carrion NP Referring Physician Nurse Practitioner 10/14/22 Miriam Suarez DO [address] [place] [address] Referring Physician Neurology 06/29/23 Mathew Parra LPN Registered Nurse Family Medicine 07/07/23 07/08/23 Mathew Parra LPN Licensed Practical Nurse Family Medicine 07/23/23 Diana De Leon LPN [address] [place] [address] Licensed Practical Nurse Family Medicine 12/18/2302/11 Adelaida Carrion NP [address] [facility] [place] [address] Nurse Practitioner Family Medicine 01/27/24 Bong Rosado, [place] [address] [place] [address] Family Medicine 02/12/24 Juany Leggett PA [address] [place] [address] Physician Pump Erector Helper Neurology 07/26/24 documented as of this encounter
--- OUTSIDE RECORDS SUMMARY | 2024-10-10 10:24 | XMS_ITS | Encounter Summary ---
Author Organization [facility] Address [address] [place] [address] Care Team Providers Care English Lecturer Name Role Phone Adelaida Carrion NP Unavailable [phone] José Luis Roberts MD Primary Care Provider [phone] José Luis Roberts MD Primary Care Provider [phone] Miriam Suarez DO Unavailable [phone] [place], Ardana SALES ACCOUNT ASSOCIATE Unavailable Unavailable Fran Parradana SALES ACCOUNT ASSOCIATE Unavailable Unavailable Diana De Leon SALES ACCOUNT ASSOCIATE Unavailable Unallocated, Noms Provider Primary Care Provi kellee Adelaida Carrion TRANSFER ENGINEER Unavailable [phone] José Luis Roberts MD Primary Care Provider [phone] Bong Rosado MA Unavailable [phone] Juany Leggett Unavailable Encounter Details Date Type Department Care Team (Late st Contact Info) Description 01/23/2023 Abstract [facility] [address] [facility] [address] [place] [address] Travon Hines PA [address] [facility] [address] [place] [address] Social History Tobacco Use Types Packs/Day Years [...] Visit [facility] [address] [place] [address] Adelaida Carrion NP [address] [place] [address] 11/14/2024 9:40 AM EDT Office Visit [facility] [address] [place] [address] Adelaida Carrion NP [address] [place] [address] documented as of this encounter Visit Diagnoses Not on filedocumented in this encounter Care Teams English Lecturer Relationship Specialty Start Date End Date José Luis Roberts MD PCP - General Family Medicine 10/14/22 05/17/23 José Luis Roberts MD [address] [place] [address] PCP - General Family Medicine 05/18/23 01/26/24 Unallocated, Johan Sierra MD [address] [place] [address] PCP - General Family Medicine 01/27/24 02/01/24 José Luis Roberts MD [address] [place] [address] PCP - General Family Medicine 02/02/24 Adelaida Carrion NP Referring Physician Nurse Practitioner 10/14/22 Miriam Suarez DO [address] [place] [address] Referring Physician Neurology 06/29/23 Mathew Parra LPN Registered Nurse Family Medicine 07/07/23 07/08/23 Mathew Parra LPN Licensed Practical Nurse Family Medicine 07/23/23 Diana De Leon LPN [address] [place] [address] Licensed Practical Nurse Family Medicine 12/18/2302/11 Adelaida Carrion NP [address] [place] [address] Nurse Practitioner Family Medicine 01/27/24 Bong Rosado [place] [address] [place] [address] Family Medicine 02/12/24 Juany Leggett PA [address] [place], [place] [address] Physician Water Resource Engineer Neurology 07/26/24 documented as of this encounter
--- OUTSIDE RECORDS SUMMARY | 2024-10-10 10:24 | XMS_ITS | Clinical Summary ---
Author Organization [facility] Address [address] [place] [address] Care Team Providers Care Plant Changer Name Role Phone Unavailable Primary Care Provider [...]
--- OUTSIDE RECORDS SUMMARY | 2024-10-10 10:24 | XMS_ITS | Clinical Summary ---
Author Organization [employer] Address [id number] [address] [place] [address] Care Team Providers Care Basin Cleaner Name Role Phone Adelaida Carrion APRN-COMMERCIAL PAINTER Primary Care Provider Medications gabapentin (NEURONTIN) 600 mg tabletIndicatio ns:Neuropathy 1 tablet po in the am (600mg) 1 tablet po at noon (600mg) an 2 tablets po at bedtime (1200mg) 120 tablet 5 05/04/2018 Active Encounters Date Type Department Care Team Description 10/08/2024 12:51 PM EDT - 10/09/2024 6:17 PM EDT Emergency [facility] [address] [place] [address] Discharge Disposition: Telemedicine Discharge from Last 3 Months Social History Tobacco Use Types Packs/Day Years [...] Tobacco Screening 1973 Adult BMI Screening 12/06/1979 Pap Smear 1982 Zoster (Shingles) Vaccine (2 of 2) 10/12/2023 08/17/2023 COVID-19 Vaccine (2023-2 5 season) 2023 02/13/2023, 03/02/2021, 08/24/2020, Additional history exists Influenza Vaccine 2024 01/28/2024, , 05/28/2018 DTaP,Tdap and Td Vaccines (2 - Tdap) 02/20/2032 02/19/2022 Medical Devices Not on file Insurance MEDICARE Care Teams Basin Cleaner Relationship Specialty Start Date End Date Adelaida Carrion, YARN EXAMINER-COMMERCIAL PAINTER PCP - General Nurse Practitioner 12/10/16
--- OUTSIDE RECORDS SUMMARY | 2024-10-10 10:24 | XMS_ITS | Encounter Summary ---
Author Organization [facility] Address [address] [place] [address] Care Team Providers Care Physics Technical Officer Name Role Phone Adelaida Carrion NP Unavailable [phone] José Luis Roberts MD Primary Care Provider [phone] José Luis Roberts MD Primary Care Provider [phone] Miriam Suarez DO Unavailable [phone] [place], Ardana CASTING AND PASTING SUPERVISOR Unavailable Unavailable Fran Parradana CASTING AND PASTING SUPERVISOR Unavailable Unavailable Diana De Leon CASTING AND PASTING SUPERVISOR Unavailable Unallocated, Noms Provider Primary Care Provi kellee Adelaida Carrion CLOTH BRUSHING AND SUEDING SUPERVISOR Unavailable [phone] José Luis Roberts MD Primary Care Provider [phone] Bong Rosado MA Unavailable [phone] Juany Leggett Unavailable Encounter Details Date Type Department Care Team (Late st Contact Info) Description 01/09/2023 Abstract [facility] 112 [facility] [address] [place] [address] Travon Hines PA [address] [place] [facility] 150 [place] [address] Social History Tobacco Use Types Packs/Day Years [...] [facility] [address] [place] [address] Adelaida Carrion NP [address] [place] [address] 11/14/2024 9:40 AM EDT Office Visit [facility] [address] [place] [address] Adelaida Carrion NP [address] [place] [address] documented as of this encounter Visit Diagnoses Not on filedocumented in this encounter Care Teams Physics Technical Officer Relationship Specialty Start Date End Date José Luis Roberts MD PCP - General Family Medicine 10/14/22 05/17/23 José Luis Roberts MD [address] [place] [address] PCP - General Family Medicine 05/18/23 01/26/24 Unallocated, Johan Sierra MD [address] [place] [address] PCP - General Family Medicine 01/27/24 02/01/24 José Luis Roberts MD [address] [place] [address] PCP - General Family Medicine 02/02/24 Adelaida Carrion NP Referring Physician Nurse Practitioner 10/14/22 Miriam Suarez DO [address] [place] [address] Referring Physician Neurology 06/29/23 Mathew Parra LPN Registered Nurse Family Medicine 07/07/23 07/08/23 Mathew Parra LPN Licensed Practical Nurse Family Medicine 07/23/23 Diana De Leon LPN [address] [place] [address] Licensed Practical Nurse Family Medicine 12/18/2302/11 Adelaida Carrion NP [address] [place] [address] Nurse Practitioner Family Medicine 01/27/24 Bong Rosado [place] [address] [place] [address] Family Medicine 02/12/24 Juany Leggett PA [address] [place], [place] [address] Physician Tower Air Traffic Control Specialist Neurology 07/26/24 documented as of this encounter
--- OUTSIDE RECORDS SUMMARY | 2024-10-10 10:24 | XMS_ITS | Encounter Summary ---
Author Organization [facility] Address [address] [place] [address] Care Team Providers Care Development Technical Lead Name Role Phone Adelaida Carrion NP Unavailable [phone] José Luis Roberts MD Primary Care Provider [phone] José Luis oRberts MD Primary Care Provider [phone] Miriam Suarez DO Unavailable [phone] [place], Ardana FICTION AND NONFICTION PROSE WRITER Unavailable Unavailable Aida Ardana FICTION AND NONFICTION PROSE WRITER Unavailable Unavailable Diana De Leon FICTION AND NONFICTION PROSE WRITER Unavailable Unallocated, Noms Provider Primary Care Provi kellee Adelaida Carrion WELLNESS TRAINER Unavailable [phone] José Luis Roberts MD Primary Care Provider [phone] Bong Rosado MA Unavailable [phone] Juany Leggett Unavailable Encounter Details Date Type Department Care Team (Late st Contact Info) Description 04/08/2023 Orders Only [facility] [address] [place] [address] Adelaida Carrion WELLNESS TRAINER [address] [place] [address] Social History Tobacco Use Types Packs/Day Years [...] Visit [facility] [address] [place] [address] Adelaida Carrion NP [address] [place] [address] 11/14/2024 9:40 AM EDT Office Visit [facility] [address] [place] [address] Adelaida Carrion NP [address] [place] [address] documented as of this encounter Procedures Procedure Name Priority Date/Time Associated Diagnosis Comments MISCELLANEOUS LAB TEST Routine 03/23/2023 2:45 PM EST documented in this encounter Results * - Miscellaneous Test (03/23/2023 2:45 PM EST) Adelaida Carrion WELLNESS TRAINER LAB BLOOD ORDERABLES Final Resu lt documented in this encounter Visit Diagnoses Not on filedocumented in this encounter Care Teams Development Technical Lead Relationship Specialty Start Date End Date José Luis Roberts MD PCP - General Family Medicine 10/14/22 05/17/23 José Luis Roberts MD [address] [place] [address] PCP - General Family Medicine 05/18/23 01/26/24 Unallocated, Johan Sierra MD [address] [place] [address] PCP - General Family Medicine 01/27/24 02/01/24 José Luis Roberts MD [address] [place] [address] PCP - General Family Medicine 02/02/24 Adelaida Carrion NP Referring Physician Nurse Practitioner 10/14/22 Miriam Suarez DO [address] [place] [address] Referring Physician Neurology 06/29/23 Mathew Parra LPN Registered Nurse Family Medicine 07/07/23 07/08/23 Mathew Parra LPN Licensed Practical Nurse Family Medicine 07/23/23 Diana De Leon LPN [address] [place] [address] Licensed Practical Nurse Family Medicine 12/18/2302/11 Adelaida Carrion NP [address] [place] [address] Nurse Practitioner Family Medicine 01/27/24 Bong Rosado MA [address] [place] [address] Family Medicine 02/12/24 Juany Leggett PA [address] [place] [address] Physician Sales And Operations Trainee Neurology 07/26/24 documented as of this encounter
--- OUTSIDE RECORDS SUMMARY | 2024-10-10 10:24 | XMS_ITS | Encounter Summary ---
Author Organization [facility] Address [address] [place] [address] Care Team Providers Care Kerfer Machine Operator Name Role Phone Adelaida Carrion NP Unavailable [phone] José Luis Roberts MD Primary Care Provider Miriam Suarez DO Unavailable [phone] Diana De Leon LPN Unavailable Unallocated, Noms Provider Primary Care Provi kellee Adelaida Carrion NP Unavailable [phone] José Luis Roberts MD Primary Care Provider Bong Rosado MA Unavailable [phone] Juany Leggett Unavailable Encounter Details Date Type Department Care Team (Late st Contact Info) Description 01/21/2024 Orders Only [facility] [address] [place] [address] Adelaida Crarion NP [address] [place] [address] Social History Tobacco Use Types [...] How often do you attend uatsdin or anglican serv ices? Never 08/16/2023 Do [...] [facility] [address] [place] [address] Adelaida Carrion NP [address] [place] [address] 11/14/2024 9:40 AM EDT Office Visit [facility] [address] [place] [address] Adelaida Carrion NP [address] [place] [address] documented as of this encounter Procedures Procedure Name Priority Date/Time Associated Diagnosis Comments CT HEAD OR BRAIN W/ & W/O CONTRAST Routine 01/21/2024 9:10 AM EDT documented in this encounter Results * CT HEAD OR BRAIN W/ & W/O CONTRAST (01/21/2024 9:10 AM EDT) Anatomical Region Laterality Modality Radiographic Nelda ging Adelaida Carrion GAS MAIN FITTER HELPER IMG XR PROCEDURES Final Result documented in this encounter Visit Diagnoses Not on filedocumented in this encounter Additional Health Concerns Assessment Noted Time PHQ-9 Depression Total Score: 8 05/18/19 24 5:00 PM EST documented as of this encounter Care Teams Kerfer Machine Operator Relationship Specialty Start Date End Date José Luis Roberts MD [address] [place] [address] PCP - General Family Medicine 05/18/23 01/26/24 Unallocated, Johan Sierra MD [address] [place] [address] PCP - General Family Medicine 01/27/24 02/01/24 José Luis Roberts MD [address] [place] [address] PCP - General Family Medicine 02/02/24 Adelaida Carrion NP Referring Physician Nurse Practitioner 10/14/22 Miriam Suarez DO [address] [place], [place] [address] Referring Physician Neurology 06/29/23 Diana De Leon LPN [address] [place] [address] Licensed Practical Nurse Family Medicine 12/18/2302/11 Adelaida Carrion NP [address] [place] [address] Nurse Practitioner Family Medicine 01/27/24 Bong Rosado, [place] [address] [place] [address] Family Medicine 02/12/24 Juany Leggett PA [address] [place], [place] [address] Physician Fuel System Maintenance Worker Neurology 07/26/24 documented as of this encounter
--- OUTSIDE RECORDS SUMMARY | 2024-10-10 10:24 | XMS_ITS | Encounter Summary ---
Author Organization [facility] Address [address] [place] [address] Care Team Providers Care Supervisor Coil Winding Name Role Phone Daniela Miriam DO Unavailable Adelaida Carrion NP Unavailable [phone] José Luis Roberts MD Primary Care Provider Bong Rosado MA Unavailable [phone] Juany Leggett Unavailable Encounter Details Date [...] How often do you attend yazidi or oriental orthodox serv ices? Never 08/16/2023 [...] 2 09/21/2023 [facility] - Occupational Stress Questionnaire Answer Date [...] Visit [facility] [address] [place] [address] Adelaida Carrion NP [address] [place] [address] 11/14/2024 9:40 AM EDT Office Visit [facility] [address] [place] [address] Adelaida Carrion NP [address] [place] [address] documented as of this encounter Procedures Procedure Name Priority Date/Time Associated Diagnosis Comments XR SHOULDER RT MIN 2V 09/26/2024 1:35 PM EDT documented in this encounter Results * XR SHOULDER RT MIN 2V (09/26/2024 1:35 PM EDT) Anatomical Region Laterality Modality Other 09/26/2024 1:35 PM EDT Narrative 09/26/2024 1:38 PM EDT The [address] [address] XRay Report Signed Patient: NASIM INGRAM MR#: [id number] : 1960 Acct:[id number] Age/Sex: 63 / F ADM Date: 09/26/24 Loc: RAD Attending Dr: Elizabeth Cano NP Ordering Physician: Elizabeth Cano NP Date of Service: 09/26/24 Procedure(s): XR shoulder RT min 2V Accession Number(s): [id number] cc: Adelaida Carrion INSURANCE COUNSELOR; Elizabeth Cano NP The [address] [address] Patient Name: NASIM INGRAM MRN: [id number] date: 1960 Sex: F Assigned Patient Location: [facility] Current Patient Location: RAD Accession/Order Number: [id number] Exam Date: 09/26/2024 13:34 Report Date: 09/26/2024 [...] Guadalupe M.D. 09/26/2024 1:35 PM Dictation Location: [place] [address] Electronically authenticated by: [id number] Y Date: 09/26/2024 13:35 Dictated By: Shaheed Guadalupe M.D. Signed By: 09/26/248 DD/ 34 TD/TT: Brewing Technician: Procedure Note Radiology, Radiologist, MD - 09/26/2024 [place] [address] XRay Report Signed Patient: NASIM INGRAM LMR#: [id number] : 1960cct:[id number] Age/Sex: 63 / FADM Date: 09/26/24 Loc: RAD Attending Dr: Elizabeth Cano NP Ordering Physician: Elizabeth Cano NP Date of Service: 09/26/24 Procedure(s): XR shoulder RT min 2V Accession Number(s): [id number] cc: Adelaida Carrion INSURANCE COUNSELOR; Elizabeth Cano NP The [place] [id number] Patient Name: NASIM INGRAM MRN: [id number] date: 1960 Sex: F Assigned Patient Location: [facility] Current Patient Location: [facility] Accession/Order Number: [id number] Exam Date: 09/26/2024 13:34 Report Date: 09/26/2024 [...] Guadalupe M.D. 09/26/2024 1:35 PM Dictation Location: [place] [address] Electronically authenticated by: [id number] Y Date: 3:35 Dictated By: Shaheed Guadalupe M.D. Signed By:09/26/24 1338 DD/ 1335 TD/TT: Brewing Technician: Generic External Data Provider [facility] Final Result documented in this encounter Visit Diagnoses Not on filedocumented in this encounter Additional Health Concerns Assessment Noted Time PHQ-9 Depression Total Score: 8 05/18/19 24 5:00 PM EST documented as of this encounter Care Teams Supervisor Coil Winding Relationship Specialty Start Date End Date José Luis Roberts MD [address] [place] [address] PCP - General Family Medicine 02/02/24 Miriam Suarez DO [address] [place] [address] Referring Physician Neurology 06/29/23 Adelaida Carrion NP [address] [place] [address] Nurse Practitioner Family Medicine 01/27/24 Bong Rosado MA [address] [place] [address] Family Medicine 02/12/24 Juany Leggett PA [address] [place] [address] Physician Office Services Representative Neurology 07/26/24 documented as of this encounter
--- OUTSIDE RECORDS SUMMARY | 2024-10-10 10:24 | XMS_ITS | Encounter Summary ---
Author Organization [facility] Address [address] [place] [address] Care Team Providers Care Supervising Film Or Videotape Editor Name Role Phone Adelaida Carrion NP Unavailable [phone] José Luis Roberts MD Primary Care Provider [phone] José Luis Roberts MD Primary Care Provider [phone] Miriam Suarez DO Unavailable [phone] [place], Ardana HYDRAULIC ENGINEER Unavailable Unavailable Aida Ardana HYDRAULIC ENGINEER Unavailable Unavailable Diana De Leon HYDRAULIC ENGINEER Unavailable Unallocated, Noms Provider Primary Care Provi kellee Adelaida Carrion NP Unavailable [phone] José Luis Roberts MD Primary Care Provider [phone] Bong Rosado MA Unavailable [phone] Juany Leggett Unavailable Encounter Details Date Type Department Care Team (Late st Contact Info) Description 04/09/2023 Abstract [facility] [address] [place] [address] Adelaida Carrion NP [address] [place] [address] Social History Tobacco Use Types Packs/Day Years [...] Office Visit [facility] [address] [place] [address] Adelaida Carrion, BRIANA [address] [place] [address] 11/14/2024 9:40 AM EDT Office Visit [facility] [address] [place] [address] Adelaida Carrion, BRIANA [address] [place] [address] documented as of this encounter Visit Diagnoses Not on filedocumented in this encounter Care Teams Supervising Film Or Videotape Editor Relationship Specialty Start Date End Date José Luis Roberts MD PCP - General Family Medicine 10/14/22 05/17/23 José Luis Roberts MD [address] [place] [address] PCP - General Family Medicine 05/18/23 01/26/24 Unallocated, Johan Sierra MD [address] [place] [address] PCP - General Family Medicine 01/27/24 02/01/24 José Luis Roberts MD [address] [place] [address] PCP - General Family Medicine 02/02/24 Adelaida Carrion NP Referring Physician Nurse Practitioner 10/14/22 Miriam Suarez DO [address] [place], [place] [address] Referring Physician Neurology 06/29/23 Mathew Parra LPN Registered Nurse Family Medicine 07/07/23 07/08/23 Mathew Parra LPN Licensed Practical Nurse Family Medicine 07/23/23 Diana De Leon LPN [address] [place] [address] Licensed Practical Nurse Family Medicine 12/18/2302/11 Adelaida Carrion NP [address] [place] [address] Nurse Practitioner Family Medicine 01/27/24 Bong Rosado, [place] [address] [place] [address] Family Medicine 02/12/24 Juany Leggett PA [address] [place], [place] [address] Physician Food Safety Director Neurology 07/26/24 documented as of this encounter
--- OUTSIDE RECORDS SUMMARY | 2024-10-10 10:24 | XMS_ITS | Encounter Summary ---
Author Organization [facility] Address [address] [place] [address] Care Team Providers Care Iron And Steel Work Supervisor Name Role Phone Adelaida Carrion NP Unavailable [phone] José Luis Roberts MD Primary Care Provider [phone] José Luis Roberts MD Primary Care Provider [phone] Miriam Suarez DO Unavailable [phone] Dawson, Ardana LOW EMISSION AUTOMOBILE DESIGNER Unavailable Unavailable Aida Ardana LOW EMISSION AUTOMOBILE DESIGNER Unavailable Unavailable Diana De Leon LOW EMISSION AUTOMOBILE DESIGNER Unavailable Unallocated, Noms Provider Primary Care Provi kellee Adelaida Carrion NP Unavailable [phone] José Luis Roberts MD Primary Care Provider [phone] Bong Rosado MA Unavailable [phone] Juany Leggett Unavailable Encounter Details Date Type Department Care Team (Late st Contact Info) Description 03/25/2023 Abstract [facility] [address] [place] [address] Adelaida Carrion NP [address] [place] [address] Social History Tobacco Use Types Packs/Day Years [...] Office Visit [facility] [address] [place] [address] Adelaida Carrion NP [address] [place] [address] 11/14/2024 9:40 AM EDT Office Visit [facility] [address] [place] [address] Adelaida Carrion NP [address] [place] [address] documented as of this encounter Visit Diagnoses Not on filedocumented in this encounter Care Teams Iron And Steel Work Supervisor Relationship Specialty Start Date End Date José Luis Roberts MD PCP - General Family Medicine 10/14/22 05/17/23 José Luis Roberts MD [address] [place] [address] PCP - General Family Medicine 05/18/23 01/26/24 Unallocated, Johan Sierra MD [address] [place] [address] PCP - General Family Medicine 01/27/24 02/01/24 José Luis Roberts MD [address] [place] [address] PCP - General Family Medicine 02/02/24 Adelaida Carrion NP Referring Physician Nurse Practitioner 10/14/22 Miriam Suarez DO [address], [place] [address] Referring Physician Neurology 06/29/23 Mathew Parra LPN Registered Nurse Family Medicine 07/07/23 07/08/23 Mathew Parra LPN Licensed Practical Nurse Family Medicine 07/23/23 Diana De [place] LPN [address] [place] [address] Licensed Practical Nurse Family Medicine 12/18/2302/11 Adelaida Carrion NP [address] [place] [address] Nurse Practitioner Family Medicine 01/27/24 Bong Rosado, [place] [address] [place] [address] Family Medicine 02/12/24 Juany Leggett PA [address] [place], [place] [address] Physician Public Health Director Neurology 07/26/24 documented as of this encounter
--- OUTSIDE RECORDS SUMMARY | 2024-10-10 10:24 | XMS_ITS | Encounter Summary ---
Author Organization [facility] Address [address] [facility] [place] [address] Care Team Providers Care Community Service Coordinator Name Role Phone Adelaida Carrion NP Unavailable [phone] José Luis Roberts MD Primary Care Provider [phone] José Luis Roberts MD Primary Care Provider [phone] Miriam Suarez DO Unavailable [phone] [place], Ardana CASHIER PAYMENTS RECEIVED Unavailable Unavailable Aida Ardana CASHIER PAYMENTS RECEIVED Unavailable Unavailable Diana De Leon CASHIER PAYMENTS RECEIVED Unavailable Unallocated, Noms Provider Primary Care Provi kellee Adelaida Carrion NP Unavailable [phone] José Luis Roberts MD Primary Care Provider [phone] Bong Rosado MA Unavailable [phone] Juany Leggett Unavailable Encounter Details Date Type Department Care Team (Late st Contact Info) Description 03/06/2023 Clinisync Result Encounter [facility] External Department Unsolicited Ashleigh Hines PA [address] [facility] [address] [place] [address] Social History Tobacco Use Types Packs/Day Years [...] 10/13/2024 9:00 AM EDT Office Visit [facility] [address] [place] [address] Adelaida Carrion NP [address] [place] [address] 11/14/2024 9:40 AM EDT Office Visit [facility] [address] [place] [address] Adelaida Carrion NP [address] [place] [address] documented as of this encounter Procedures Procedure Name Priority Date/Time Associated Diagnosis Comments MR KNEE RT WO CON 03/06/2023 3:5 5 PM EST documented in this encounter Results * MR KNEE RT WO CON (03/06/2023 3:55 PM EST) Anatomical Region Laterality Modality Other 03/06/2023 3:55 PM EST Narrative 03/06/2023 3:55 PM EST The [address] [address] Magnetic Resonance Report Signed Patient: NASIM INGRAM MR#: [id number] : 1960 Acct:[id number] Age/Sex: 62 / F ADM Date: 03/06/23 Loc: MRI Attending Dr: Ashleigh Hines PA Ordering Physician: Ashleigh Hines Date of Service: 03/06/23 Procedure(s): MR knee RT wo con Accession Number(s): [id number] cc: Adelaida Carrion NP; Ashleigh Hnies [place] [id number] Patient Name: NASIM INGRAM MRN: [id number] date: 1960 Sex: F Assigned Patient Location: MRI Current Patient Location: MRI Accession/Order Number: [id number] Exam Date: 03/06/2023 09:30 Report Date: 03/06/2023 [...] Signed By: 03/06/23 1558 DD/ 1555 TD/TT: Insurance Adviser: Procedure Note Radiology, Radiologist, - 03/06/2023 The [place] [id number] Magnetic Resonance Report Signed Patient: NASIM INGRAM LMR#: [id number] : 1960cct:[id number] Age/Sex: 62 / FADM Date: 03/06/23 Loc: MRI Attending Dr: Ashleigh REDDY Ordering Physician: Ashleigh Hines Date of Service: 03/06/23 Procedure(s): MR knee RT wo con Accession Number(s): [id number] cc: Adelaida Carrion NP; Ashleigh Hines The [place] [id number] Patient Name: NASIM INGRAM MRN: [id number] date: 1960 Sex: F Assigned Patient Location: MRI Current Patient Location: MRI Accession/Order Number: [id number] Exam Date: 03/06/2023 09:30 Report Date: 03/06/2023 [...] Jace Dhillon M.D. Signed By:03/06/23 1558 DD/ 155 TD/TT: Insurance Adviser: us Ashleigh REDDY [facility] Final Resul t documented in this encounter Visit Diagnoses Not on filedocumented in this encounter Care Teams Community Service Coordinator Relationship Specialty Start Date End Date José Luis Roberts MD PCP - General Family Medicine 10/14/22 05/17/23 José Luis Roberts MD [address] [place] [address] PCP - General Family Medicine 05/18/23 01/26/24 Unallocated, Noms MD [facility] [place] [address] PCP - General Family Medicine 01/27/24 02/01/24 José Luis Roberts MD [address] [place] [address] PCP - General Family Medicine 02/02/24 Adelaida Carrion NP Referring Physician Nurse Practitioner 10/14/22 Miriam Suarez DO [address] [place] [address] Referring Physician Neurology 06/29/23 Mathew Parra LPN Registered Nurse Family Medicine 07/07/23 07/08/23 Mathew Parra LPN Licensed Practical Nurse Family Medicine 07/23/23 Diana De Leon LPN [address] [place], [place] [address] Licensed Practical Nurse Family Medicine 12/18/2302/11 Adelaida Carrion NP [address] [place] [address] Nurse Practitioner Family Medicine 01/27/24 Bong Rosado, [place] [address] [place] [address] Family Medicine 02/12/24 Juany Leggett PA [address] [place] [address] Physician Game Artist Neurology 07/26/24 documented as of this encounter
--- OUTSIDE RECORDS SUMMARY | 2024-10-10 10:24 | XMS_ITS | Encounter Summary ---
Author Organization [facility] Address [address] [place] [address] Care Team Providers Care Conveyor Man Name Role Phone Adelaida Carrion NP Unavailable [phone] José Luis Roberts MD Primary Care Provider [phone] Miriam Suarez DO Unavailable [phone] Mathew Parra SPLITTER HAND Unavailable Unavailable Diana De Leon SPLITTER HAND Unavailable Unallocated, Noms Provider Primary Care Provi kellee Adelaida Carrion NP Unavailable [phone] José Luis Roberts MD Primary Care Provider [phone] Bong Rosado MA Unavailable [phone] Juany Leggett Unavailable Encounter Details Date Type Department Care Team (Late st Contact Info) Description 08/26/2023 Orders Only [facility] [address] [place] [address] Arsalan Hagen MD [address] [address] Social History Tobacco Use Types Packs/Day Years [...] declined 08/16/2023 How often do you attend amish or jew serv ices? Never 08/16/2023 Do you belong to any clubs o r organizations such as amish groups, unions, fraternal or athletic groups, or [...] Recorded Patient Health Questionnaire-2 Score 0 08/17/2023 [facility] [place] of Occupat ional Health - Occupational Stress [...] [facility] [address] [place] [address] Adelaida Carrion NP [address] [place] [address] 11/14/2024 9:40 AM EDT Office Visit [facility] [address] [place] [address] Adelaida Carrion NP [address] [place] [address] documented as of this encounter Procedures Procedure Name Priority Date/Time Associated Diagnosis Comments CT CHEST ABDOMEN PELVIS W IV CONTRAST Routine 08/26/2023 7:42 AM EDT documented in this encounter Results * CT CHEST ABDOMEN PELVIS W IV CONTRAST (08/26/2023 7:42 AM EDT) Anatomical Region Laterality Modality Body, Chest, Abdomen, Pelvis Com puted Tomography Arsalan Hagen MD IMG CT PROCEDURES Final Result documented in this encounter Visit Diagnoses Not on filedocumented in this encounter Additional Health Concerns Assessment Noted Time PHQ-9 Depression Total Score: 8 05/18/19 24 5:00 PM EST documented as of this encounter Care Teams Conveyor Man Relationship Specialty Start Date End Date José Luis Roberts MD [address] [place] [address] PCP - General Family Medicine 05/18/23 01/26/24 Unallocated, Johan Sierra MD [address] [place] [address] PCP - General Family Medicine 01/27/24 02/01/24 José Luis Roberts MD [address] [place] [address] PCP - General Family Medicine 02/02/24 Adelaida Carrion NP Referring Physician Nurse Practitioner 10/14/22 Miriam Suarez DO [address] [place] [address] Referring Physician Neurology 06/29/23 Mathew Parra LPN Licensed Practical Nurse Family Medicine 07/23/23 Diana De Leon LPN [address] [place] [address] Licensed Practical Nurse Family Medicine 12/18/2302/11 Adelaida Carrion NP [address] [place] [address] Nurse Practitioner Family Medicine 01/27/24 Bong Rosado, [place] [address] [address] Family Medicine 02/12/24 Juany Leggett PA [address] [place], [place] [address] Physician Test Driller Neurology 07/26/24 documented as of this encounter
--- OUTSIDE RECORDS SUMMARY | 2024-10-10 10:24 | XMS_ITS | Encounter Summary ---
Author Organization [facility] Address [address] [place] [address] Care Team Providers Care Senior Patrol Agent Name Role Phone Adelaida Carrion NP Unavailable [phone] José Luis Roberts MD Primary Care Provider [phone] Miriam Suarez DO Unavailable [phone] Mathew Parra DRY DIP WORKER Unavailable Unavailable Diana De Leon LPN Unavailable Unallocated, Noms Provider Primary Care Provi kellee Adelaida Carrion NP Unavailable [phone] José Luis Roberts MD Primary Care Provider [phone] Bong Rosado MA Unavailable [phone] Juany Leggett Unavailable Encounter Details Date Type Department Care Team (Late st Contact Info) Description 08/19/2023 Clinisync Result Encounter [facility] External Department Unsolicited Adelaida Carrion NP [address] [place] [address] Social History Tobacco Use Types Packs/Day Years [...] declined 08/16/2023 How often do you attend pentecostalism or uatsdin serv ices? Never 08/16/2023 Do you belong to any clubs o r organizations such as pentecostalism groups, unions, fraternal or athletic groups, or [...] Recorded Patient Health Questionnaire-2 Score 0 08/17/2023 [facility] Occupat ional Health - [...] 9:00 AM EDT Office Visit [facility] [address] [place] [address] Adelaida Carrion NP [address] [place] [address] 11/14/2024 9:40 AM EDT Office Visit [facility] [address] [place] [address] Adelaida Carrion NP [address] [place] [address] documented as of this encounter Procedures Procedure Name Priority Date/Time Associated Diagnosis Comments CT LUNG SCREENING LOW DOSE 08/19/2023 6:06 AM EDT documented in this encounter Results * CT LUNG SCREENING LOW DOSE (08/19/2023 6:06 AM EDT) Anatomical Region Laterality Modality Other 08/19/2023 6:06 AM EDT Narrative 08/19/2023 6:09 AM EDT The [address] [address] [address] Scan Report Signed Patient: NASIM INGRAM MR#: [id number] : 1960 Acct:[id number] Age/Sex: 62 / F ADM Date: 08/18/23 Loc: CT Attending Dr: Adelaida Carrion FINANCIAL MANAGEMENT Ordering Physician: Adelaida Carrion NP Date of Service: 08/18/23 Procedure(s): CT lung screening low-dose Accession Number(s): [id number] cc: Adelaida Carrion NP [address] [address] Patient Name: NASIM INGRAM MRN: [id number] date: 1960 Sex: F Assigned Patient Location: CT Current Patient Location: Accession/Order Number: [id number] Exam Date: 08/18/2023 13:28 Report Date: 08/19/2023 [...] Dictated By: Jace Dhillon M.D. Signed By: 08/19/2309 DD/ 5 TD/TT: Steamfitter: Procedure Note Radiology, Radiologist, MD - 08/19/2023 [place] [address] CT Scan Report Signed Patient: NASIM INGRAM LMR#: [id number] : 1960cct:[id number] Age/Sex: 62 / FADM Date: 08/18/23 Loc: CT Attending Dr: Adelaida Carrion NP Ordering Physician: Adelaida Carrion NP Date of Service: 08/18/23 Procedure(s): CT lung screening low-dose Accession Number(s): [id number] cc: Adelaida Carrion NP [place] [id number] Patient Name: NASIM INGRAM MRN: [id number] date: 1960 Sex: F Assigned Patient Location: CT Current Patient Location: Accession/Order Number: [id number] Exam Date: 08/18/2023 13:28 Report Date: 08/19/2023 [...] Dhillon M.D. Signed By:08/19/23608 DD/ 5 TD/TT: Steamfitter: us Adelaida Carrion NP [facility] Final Result documented in this encounter Visit Diagnoses Not on filedocumented in this encounter Additional Health Concerns Assessment Noted Time PHQ-9 Depression Total Score: 8 05/18/19 24 5:00 PM EST documented as of this encounter Care Teams Senior Patrol Agent Relationship Specialty Start Date End Date José Luis Roberts MD [address] [place] [address] PCP - General Family Medicine 05/18/23 01/26/24 Unallocated, Johan Sierra MD [address] [place] [address] PCP - General Family Medicine 01/27/24 02/01/24 José Luis Roberts MD [address] [place] [address] PCP - General Family Medicine 02/02/24 Adelaida Carrion NP Referring Physician Nurse Practitioner 10/14/22 Miriam Suarez DO [address] [place] [address] Referring Physician Neurology 06/29/23 Mathew Parra LPN Licensed Practical Nurse Family Medicine 07/23/23 Diana De Leon LPN [address] [place] [address] Licensed Practical Nurse Family Medicine 12/18/2302/11 Adelaida Carrion NP [address] [place] [address] Nurse Practitioner Family Medicine 01/27/24 Bong Rosado, [place] [address] [place] [address] Family Medicine 02/12/24 Juany Leggett PA [address] [place] [address] Physician Hearing And Speech Assistant Neurology 07/26/24 documented as of this encounter
--- OUTSIDE RECORDS SUMMARY | 2024-10-10 10:24 | XMS_ITS | Encounter Summary ---
Author Organization [facility] Address [address] [place] [address] Care Team Providers Care Automotive Machinist Name Role Phone Adelaida Carrion NP Unavailable [phone] José Luis Roberts MD Primary Care Provider [phone] José Luis Roberts MD Primary Care Provider [phone] Miriam Suarez DO Unavailable [phone] [place], Ardana CLASSICS PROFESSOR Unavailable Unavailable Fran Parradana CLASSICS PROFESSOR Unavailable Unavailable Diana De Leon CLASSICS PROFESSOR Unavailable Unallocated, Noms Provider Primary Care Provi kellee Adelaida Carrion SENIOR ELECTRICAL ENGINEER Unavailable [phone] José Luis Roberts MD Primary Care Provider [phone] Bong Rosado MA Unavailable [phone] Juany Leggett Unavailable Encounter Details Date Type Department Care Team (Late st Contact Info) Description 11/14/2022 Abstract [facility] [address] [facility] 150 [place] [address] Travon Hines PA [address] [facility] 150 [place] [address] Social History Tobacco Use Types Packs/Day Years [...] [facility] [address] [place] [address] Adelaida Carrion NP [address] [place] [address] 11/14/2024 9:40 AM EDT Office Visit [facility] [address] [place] [address] Adelaida Carrion NP [address] [place] [address] documented as of this encounter Visit Diagnoses Not on filedocumented in this encounter Care Teams Automotive Machinist Relationship Specialty Start Date End Date José Luis Roberts MD PCP - General Family Medicine 10/14/22 05/17/23 José Luis Roberts MD [address] [place] [address] PCP - General Family Medicine 05/18/23 01/26/24 Unallocated, Johan Sierra MD [address] [place] [address] PCP - General Family Medicine 01/27/24 02/01/24 José Luis Roberts MD [address] [place] [address] PCP - General Family Medicine 02/02/24 Adelaida Carrion NP Referring Physician Nurse Practitioner 10/14/22 Miriam Suarez DO [address] [place] [address] Referring Physician Neurology 06/29/23 Mathew Parra LPN Registered Nurse Family Medicine 07/07/23 07/08/23 Mathew Parra LPN Licensed Practical Nurse Family Medicine 07/23/23 Diana De Leon LPN [address] [place], [place] [address] Licensed Practical Nurse Family Medicine 12/18/2302/11 Adelaida Carrion NP [address] [place] [address] Nurse Practitioner Family Medicine 01/27/24 Bong Rosado, [place] [address] [place] [address] Family Medicine 02/12/24 Juany Leggett PA [address] [place], [place] [address] Physician Director Of Distance Learning Neurology 07/26/24 documented as of this encounter
--- OUTSIDE RECORDS SUMMARY | 2024-10-10 10:24 | XMS_ITS | Encounter Summary ---
Author Organization [facility] Address [address] [place] [address] Care Team Providers Care Bone Density Technician Name Role Phone Adelaida Carrion NP Unavailable [phone] José Luis Roberts MD Primary Care Provider [phone] Miriam Suarez DO Unavailable [phone] Mathew Parra PEN AND PENCIL REPAIRER Unavailable Unavailable Diana De Leon LPN Unavailable Unallocated, Noms Provider Primary Care Provi kellee Adelaida Carrion NP Unavailable [phone] José Luis Roberts MD Primary Care Provider [phone] Bong Rosado MA Unavailable [phone] Juany Leggett Unavailable Encounter Details Date Type Department Care Team (Late st Contact Info) Description 12/02/2023 Orders Only [facility] [address] [place] [address] Bhakti Culp NP [address] [place] [address] Social History Tobacco Use Types [...] How often do you attend jewish or restorationism serv ices? Never 08/16/2023 Do [...] Patient Health Questionnaire-2 Score 2 09/21/2023 [facility] Occupat ional Health - [...] [facility] [address] [place] [address] Adelaida Carrion NP [address] [place] [address] 11/14/2024 9:40 AM EDT Office Visit [facility] [address] [place] [address] Adelaida Carrion NP [address] [place] [address] documented as of this encounter Procedures Procedure [...] documented as of this encounter Care Teams Bone Density Technician Relationship Specialty Start Date End Date José Luis Roberts MD [address] [place] [address] PCP - General Family Medicine 05/18/23 01/26/24 Unallocated, Johan Sierra MD [address] [place] [address] PCP - General Family Medicine 01/27/24 02/01/24 José Luis Roberts MD [address] [place] [address] PCP - General Family Medicine 02/02/24 Adelaida Carrion NP Referring Physician Nurse Practitioner 10/14/22 Miriam Suarez DO [address] [place], [place] [address] Referring Physician Neurology 06/29/23 Mathew Parra LPN Licensed Practical Nurse Family Medicine 07/23/23 Diana De Leon LPN [address] [place], [place] [address] Licensed Practical Nurse Family Medicine 12/18/2302/11 Adelaida Carrion NP [address] [place] [address] Nurse Practitioner Family Medicine 01/27/24 Bong Rosado MA [address] [place] [address] Family Medicine 02/12/24 Juany Leggett PA [address] [place], [place] [address] Physician Family Member Caretaker Neurology 07/26/24 documented as of this encounter
--- OUTSIDE RECORDS SUMMARY | 2024-10-10 10:24 | XMS_ITS | Encounter Summary ---
Author Organization [facility] Address [address] [place] [address] Care Team Providers Care Cmv Driver Name Role Phone Adelaida Carrion NP Unavailable [phone] José Luis Roberts MD Primary Care Provider [phone] Miriam Suarez DO Unavailable [phone] Mathew Parra CHAIR MAKER Unavailable Unavailable Diana De Leon LPN Unavailable Unallocated, Noms Provider Primary Care Provi kellee Adelaida Carrion NP Unavailable [phone] José Luis Roberts MD Primary Care Provider [phone] Bong Rosado MA Unavailable [phone] Juany Leggett Unavailable Encounter Details Date [...] How often do you attend evangelical or evangelical serv ices? Never 08/16/2023 Do [...] Recorded Patient Health Questionnaire-2 Score 2 09/21/2023 [facility] of Occupat ional Health - Occupational Stress [...] Office Visit [facility] [address] [place] [address] Adelaida Carrion NP [address] [place] [address] 11/14/2024 9:40 AM EDT Office Visit [facility] [address] [place] [address] Adelaida Carrion NP [address] [place] [address] documented as of this encounter Procedures Procedure Name Priority Date/Time Associated Diagnosis Comments XR THORACIC SPINE 2 VIEWS 12/02/2023 2:53 PM EDT documented in this encounter Results * XR thoracic spine 2 views (12/02/2023 2:53 PM EDT) Anatomical Region Laterality Modality Spine, T-spine Radiographic Nelda ging 12/02/2023 2:53 PM EDT Narrative 12/02/2023 2:55 PM EDT [address] [address] XRay Report Signed Patient: NASIM BE MR#: [id number] : 1960 Acct:[id number] Age/Sex: 62 / F ADM Date: 12/02/23 Loc: RAD Attending Dr: Elizabeth Culp NP Ordering Physician: Elizabeth Culp NP Date of Service: 12/02/23 Procedure(s): XR thoracic spine 2V Accession Number(s): [id number] cc: Adelaida Carrion VENTILATION WORKER; Elizabeth Culp NP [address] [address] Patient Name: NASIM BE MRN: [id number] date: 1960 Sex: F Assigned Patient Location: RAD Current Patient Location: RAD Accession/Order Number: [id number] Exam Date: 12/02/2023 14:10 Report Date: 12/02/2023 [...] Signed By: 12/02/23 1455 DD/ 1453 TD/TT: Particle Board Supervisor: Procedure Note Radiology, Radiologist, MD - 12/02/2023 [place] [address] XRay Report Signed Patient: NASIM BE LMR#: [id number] : 1960cct:[id number] Age/Sex: 62 / FADM Date: 12/02/23 Loc: RAD Attending Dr: Elizabeth Culp NP Ordering Physician: Elizabeth Culp NP Date of Service: 12/02/23 Procedure(s): XR thoracic spine 2V Accession Number(s): [id number] cc: Adelaida Carrion NP; Elizabeth Culp NP The [place] [id number] Patient Name: NASIM BE MRN: [id number] date: 1960 Sex: F Assigned Patient Location: [facility] Current Patient Location: [facility] Accession/Order Number: [id number] Exam Date: 12/02/2023 14:10 Report Date: 12/02/2023 [...] M.D. Signed By:12/02/23 1455 DD/ 1453 TD/TT: Particle Board Supervisor: us Generic External Data Provider IMG XR PROCEDURES Final Result documented in this encounter Visit Diagnoses Not on filedocumented in this encounter Additional Health Concerns Assessment Noted Time PHQ-9 Depression Total Score: 8 05/18/19 24 5:00 PM EST documented as of this encounter Care Teams Cmv Driver Relationship Specialty Start Date End Date José Luis Roberts MD [address] [place] [address] PCP - General Family Medicine 05/18/23 01/26/24 Unallocated, Noms Provider, [address] [place] [address] PCP - General Family Medicine 01/27/24 02/01/24 José Luis Roberts MD [address] [place] [address] PCP - General Family Medicine 02/02/24 Adelaida Carrion NP Referring Physician Nurse Practitioner 10/14/22 Miriam Suarez DO [address] [place] [address] Referring Physician Neurology 06/29/23 Mathew Parra LPN Licensed Practical Nurse Family Medicine 07/23/23 Diana De Leon LPN [address] [place] [address] Licensed Practical Nurse Family Medicine 12/18/2302/11 Adelaida Carrion NP [address] [place] [address] Nurse Practitioner Family Medicine 01/27/24 Bong Rosado, [place] [address] [place] [address] Family Medicine 02/12/24 Juany Leggett PA [address] [place] [address] Physician Sterile Products Processor Neurology 07/26/24 documented as of this encounter
--- OUTSIDE RECORDS SUMMARY | 2024-10-10 10:24 | XMS_ITS | Encounter Summary ---
Author Organization [facility] Address [address] [place] [address] Care Team Providers Care Infrastructure Administrator Name Role Phone Adelaida Carrion NP Unavailable [phone] José Luis Roberts MD Primary Care Provider [phone] José Luis Roberts MD Primary Care Provider [phone] Miriam Suarez DO Unavailable [phone] [place], Ardana PORTABLE TRACKMAN Unavailable Unavailable Aida Ardana PORTABLE TRACKMAN Unavailable Unavailable Diana De Leon PORTABLE TRACKMAN Unavailable Unallocated, Noms Provider Primary Care Provi kellee Adelaida Carrion NP Unavailable [phone] José Luis Roberts MD Primary Care Provider [phone] Bong Rosado MA Unavailable [phone] Juany Leggett Unavailable Encounter Details Date Type Department Care Team (Late st Contact Info) Description 03/26/2023 Clinisync Result Encounter [facility] External Department Unsolicited Adelaida Carrion NP [address] [place] [address] Social History Tobacco Use Types Packs/Day Years [...] Visit [facility] [address] [place] [address] Adelaida Carrion NP [address] [place] [address] 11/14/2024 9:40 AM EDT Office Visit [facility] [address] [place] [address] Adelaida Carrion NP [address] [place] [address] documented as of this encounter Procedures Procedure Name Priority Date/Time Associated Diagnosis Comments XR FOOT LT MIN 3V 03/26/2023 8:1 4 AM EST documented in this encounter Results * XR FOOT LT MIN 3V (03/26/2023 8:14 AM EST) Anatomical Region Laterality Modality Other 03/26/2023 8:14 AM EST Narrative 03/26/2023 8:17 AM EST The [address] [address] XRay Report Signed Patient: NASIM BE MR#: [id number] : 1960 Acct:[id number] Age/Sex: 62 / F ADM Date: 03/25/23 Loc: RAD Attending Dr: Adelaida Carrion ELECTROTYPER HELPER Ordering Physician: Adelaida Carrion NP Date of Service: 03/25/23 Procedure(s): XR foot LT min 3V Accession Number(s): [id number] cc: Adelaida Carrion NP The [address] [address] Patient Name: NASIM BE MRN: [id number] date: 1960 Sex: F Assigned Patient Location: RAD Current Patient Location: Accession/Order Number: [id number] Exam Date: 03/25/2023 15:34 Report Date: 03/26/2023 08:14 At the request of: ADELAIDA CARRION Procedure: XR foot LT min 3V PROCEDURE: XR foot LT min 3V DATE: 03/25/2023 2:34 PM PLASTER MACHINE OPERATOR COMPARISONS: None CLINICAL INDICATION: left foot pain [...] M.D. Signed By: 03/26/23816 DD/ 3 TD/TT: Gear Design Engineer: Procedure Note Radiology, Radiologist, MD - 03/26/2023 The [place] [id number] XRay Report Signed Patient: NASIM BE LMR#: [id number] : 1960cct:[id number] Age/Sex: 62 / FADM Date: 03/25/23 Loc: RAD Attending Dr: Adelaida Carrion ELECTROTYPER HELPER Ordering Physician: Adelaida Carrion NP Date of Service: 03/25/23 Procedure(s): XR foot LT min 3V Accession Number(s): [id number] cc: Adelaida Carrion NP [address] [address] Patient Name: NASIM BE MRN: [id number] date: 1960 Sex: F Assigned Patient Location: [facility] Current Patient Location: Accession/Order Number: [id number] Exam Date: 03/25/2023 15:34 Report Date: 03/26/2023 08:14 At the request of: ADELAIDA CARRION Procedure: XR foot LT min 3V PROCEDURE: XR foot LT min 3V DATE: 03/25/2023 2:34 PM PLASTER MACHINE OPERATOR COMPARISONS: None CLINICAL INDICATION: left foot pain [...] Harris M.D. Signed By:03/26/23816 DD/ 3 TD/TT: Gear Design Engineer: us Adelaida Carrion ELECTROTYPER HELPER [facility] Final Result documented in this encounter Visit Diagnoses Not on filedocumented in this encounter Care Teams Infrastructure Administrator Relationship Specialty Start Date End Date José Luis Roberts MD PCP - General Family Medicine 10/14/22 05/17/23 José Luis Roberts MD [address] [place] [address] PCP - General Family Medicine 05/18/23 01/26/24 Unallocated, Johan Sierra MD [address] [place] [address] PCP - General Family Medicine 01/27/24 02/01/24 José Luis Roberts MD [address] [place] [address] PCP - General Family Medicine 02/02/24 Adelaida Carrion NP Referring Physician Nurse Practitioner 10/14/22 Miriam Suarez DO [address] [place], [place] [address] Referring Physician Neurology 06/29/23 Mathew Parra LPN Registered Nurse Family Medicine 07/07/23 07/08/23 Mathew Parra LPN Licensed Practical Nurse Family Medicine 07/23/23 Diana De Leon LPN [address] [place] [address] Licensed Practical Nurse Family Medicine 12/18/2302/11 Adelaida Carrion NP [address] [place] [address] Nurse Practitioner Family Medicine 01/27/24 Bong Rosado MA [address] [place] [address] Family Medicine 02/12/24 Juany Leggett PA [address] [place] [address] Physician Pheresis Nurse Neurology 07/26/24 documented as of this encounter
--- OUTSIDE RECORDS SUMMARY | 2024-10-10 10:24 | XMS_ITS | Encounter Summary ---
Author Organization [facility] Address [address] [place] [address] Care Team Providers Care Practice Support Specialist Name Role Phone Miriam Suarez Unavailable [phone] Adelaida Carrion NP Unavailable [phone] José Luis Roberts MD Primary Care Provider Bong Rosado MA Unavailable [phone] Juany Leggett Unavailable Encounter Details Date Type Department Care Team (Late st Contact Info) Description 09/19/2024 Abstract [facility] [address] [place] [address] Adelaida Carrion, BRIANA [address] [place] [address] Social History Tobacco Use Types [...] How often do you attend episcopalian or sikhism serv ices? Never 08/16/2023 Do you belong [...] Visit [facility] [address] [place] [address] Adelaida Carrion NP [address] [place] [address] 11/14/2024 9:40 AM EDT Office Visit [facility] [address] [place] [address] Adelaida Carrion, BRIANA [address] [place] [address] documented as of this encounter Visit Diagnoses Not on filedocumented in this encounter Additional Health Concerns Assessment Noted Time PHQ-9 Depression Total Score: 8 05/18/19 24 5:00 PM EST documented as of this encounter Care Teams Practice Support Specialist Relationship Specialty Start Date End Date José Luis Roberts MD [address] [place] [address] PCP - General Family Medicine 02/02/24 Miriam Suarez DO [address] [place] [address] Referring Physician Neurology 06/29/23 Adelaida Carrion, BRIANA [address] [place] [address] Nurse Practitioner Family Medicine 01/27/24 Bong Rosado MA [address] [place] [address] Family Medicine 02/12/24 Juany Leggett PA [address] [place] [address] Physician Irb Compliance Coordinator Neurology 07/26/24 documented as of this encounter
--- OUTSIDE RECORDS SUMMARY | 2024-10-10 10:24 | XMS_ITS | Encounter Summary ---
Author Organization [facility] Address [address] [place] [address] Care Team Providers Care Pathology Laboratory Aides Teacher Name Role Phone Adelaida Carrion NP Unavailable [phone] José Luis Roberts MD Primary Care Provider [phone] Miriam Suarez DO Unavailable [phone] Mathew Parra SEISMOLOGY TEACHER Unavailable Unavailable Diana De Leon LPN Unavailable Unallocated, Noms Provider Primary Care Provi kellee Adelaida Carrion NP Unavailable [phone] José Luis Roberts MD Primary Care Provider [phone] Bong Rosado MA Unavailable [phone] Juany Leggett Unavailable Encounter Details Date Type Department Care Team (Late st Contact Info) Description 09/01/2023 Orders Only [facility] [address] [place] [address] Shaikh Alberto MD [address] [facility] [place] [address] Social History Tobacco Use Types [...] declined 08/16/2023 How often do you attend confucianist or evangelical serv ices? Never 08/16/2023 Do you belong to any clubs o r organizations such as confucianist groups, unions, fraternal or athletic groups, or [...] Recorded Patient Health Questionnaire-2 Score 0 08/17/2023 [facility] of Occupat ional Health - Occupational Stress [...] place to sleep or slept in a mcc (including now)? No 08/16/2023 Housing Stability Vital [...] [facility] [address] [place] [address] Adelaida Carrion NP [address] [place] [address] 11/14/2024 9:40 AM EDT Office Visit [facility] [address] [place] [address] Adelaida Carrion NP [address] [place] [address] documented as of this encounter Procedures [...] documented as of this encounter Care Teams Pathology Laboratory Aides Teacher Relationship Specialty Start Date End Date José Luis Roberts MD [address] [place] [address] PCP - General Family Medicine 05/18/23 01/26/24 Unallocated, Johan Sierra MD [address] [place] [address] PCP - General Family Medicine 01/27/24 02/01/24 José Luis Roberts MD [address] [place] [address] PCP - General Family Medicine 02/02/24 Adelaida Carrion NP Referring Physician Nurse Practitioner 10/14/22 Miriam Suarez DO [address] [place], [place] [address] Referring Physician Neurology 06/29/23 Mathew Parra LPN Licensed Practical Nurse Family Medicine 07/23/23 Diana De Leon LPN [address] [place], [place] [address] Licensed Practical Nurse Family Medicine 12/18/2302/11 Adelaida Carrion NP [address] [place] [address] Nurse Practitioner Family Medicine 01/27/24 Bong Rosado MA [address] [place] [address] Family Medicine 02/12/24 Juany Leggett PA [address] [place], [place] [address] Physician Dial Screw Assembler Neurology 07/26/24 documented as of this encounter
--- OUTSIDE RECORDS SUMMARY | 2024-10-10 10:24 | XMS_ITS | Encounter Summary ---
Author Organization [facility] Address [address] [place] [address] Care Team Providers Care Wood Coater Name Role Phone Adelaida Carrion NP Unavailable [phone] José Luis Roberts MD Primary Care Provider [phone] Miriam Suarez DO Unavailable [phone] Mathew Parra INSPECTOR SUBASSEMBLY Unavailable Unavailable Diana De Leon INSPECTOR SUBASSEMBLY Unavailable Unallocated, Noms Provider Primary Care Provi kellee Adelaida Carrion NP Unavailable [phone] José Luis Roberts MD Primary Care Provider [phone] Bong Rosado MA Unavailable [phone] Juany Leggett Unavailable Encounter Details Date Type Department Care Team (Late st Contact Info) Description 08/25/2023 Orders Only [facility] [address] [place] [address] Adelaida Carrion NP [address] [place] [address] Social History Tobacco Use Types [...] How often do you attend denominational or lutheran serv ices? Never 08/16/2023 Do you belong [...] Score 0 08/17/2023 [facility] of Occupat ional Health - [...] [facility] [address] [place] [address] Adelaida Carrion NP [address] [place] [address] 11/14/2024 9:40 AM EDT Office Visit [facility] [address] [place] [address] Adelaida Carrion NP [address] [place] [address] documented as of this encounter Procedures Procedure Name Priority Date/Time Associated Diagnosis Comments ELECTROCARDIOGRAM REPORT Routine 024 8:39 AM EDT documented in this encounter Results * Electrocardiogram Report (08/24/2023 8:39 AM EDT) us Adelaida Carrion NP IN CLINIC/BEDSIDE ORDERABLES Fi nal Result documented in this encounter Visit Diagnoses Not on filedocumented in this encounter Additional Health Concerns Assessment Noted Time PHQ-9 Depression Total Score: 8 05/18/19 24 5:00 PM EST documented as of this encounter Care Teams Wood Coater Relationship Specialty Start Date End Date José Luis Roberts MD [address] [place] [address] PCP - General Family Medicine 05/18/23 01/26/24 Unallocated, Johan Sierra MD [address] [place] [address] PCP - General Family Medicine 01/27/24 02/01/24 José Luis Roberts MD [address] [place] [address] PCP - General Family Medicine 02/02/24 Adelaida Carrion NP Referring Physician Nurse Practitioner 10/14/22 Miriam Suarez DO [address] [place] [address] Referring Physician Neurology 06/29/23 Mathew Parra LPN Licensed Practical Nurse Family Medicine 07/23/23 Diana De Leon LPN [address] [place], [place] [address] Licensed Practical Nurse Family Medicine 12/18/2302/11 Adelaida Carrion NP [address] [place] [address] Nurse Practitioner Family Medicine 01/27/24 Bong Rosado, [place] [address] [place] [address] Family Medicine 02/12/24 Juany Leggett PA [address] [place] [address] Physician Engine Oiler Neurology 07/26/24 documented as of this encounter
--- OUTSIDE RECORDS SUMMARY | 2024-10-10 10:24 | XMS_ITS | Encounter Summary ---
Author Organization [facility] Address [address] [place] [address] Care Team Providers Care Central Scheduler Name Role Phone Adelaida Carrion NP Unavailable [phone] José Luis Roberts MD Primary Care Provider [phone] Miriam Suarez DO Unavailable [phone] Mathew Parra LANDSCAPE TECHNICIAN Unavailable Unavailable Diana De Leon LANDSCAPE TECHNICIAN Unavailable Unallocated, Noms Provider Primary Care Provi kellee Adelaida Carrion NP Unavailable [phone] José Luis Roberts MD Primary Care Provider [phone] Bong Rosado MA Unavailable [phone] Juany Leggett Unavailable Encounter Details Date Type Department Care Team (Late st Contact Info) Description 07/14/2023 Orders Only [facility] [address] [place] [address] Adelaida Carrion NP [address] [place] [address] Social History Tobacco Use Types [...] Never 05/18/2023 How often do you attend religion or yarsani serv ices? Never 05/18/2023 Do you belong [...] Recorded Patient Health Questionnaire-2 Score 0 07/07/2023 [facility] of Occupat ional Health - Occupational Stress [...] in a senior care (including now)? No 05/18/2023 Comments Unknown Sex [...] [facility] [address] [place] [address] Adelaida Carrion NP [address] [place] [address] 11/14/2024 9:40 AM EDT Office Visit [facility] [address] [place] [address] Adelaida Carrion, BRIANA [address] [place] [address] documented as of this encounter Procedures Procedure Name Priority Date/Time Associated Diagnosis Comments XR CHEST 1 VIEW Routine 07/11/2023 9:09 AM EDT documented in this encounter Results * XR chest 1 view (07/11/2023 9:09 AM EDT) Anatomical Region Laterality Modality Chest Radiographic Nelda ging Adelaida Carrion WORK CHECKER IMG XR PROCEDURES Final Result documented in this encounter Visit Diagnoses Not on filedocumented in this encounter Additional Health Concerns Assessment Noted Time PHQ-9 Depression Total Score: 8 05/18/19 24 5:00 PM EST documented as of this encounter Care Teams Central Scheduler Relationship Specialty Start Date End Date José Luis Roberts MD [address] [place] [address] PCP - General Family Medicine 05/18/23 01/26/24 Unallocated, Joahn Sierra MD [address] [place] [address] PCP - General Family Medicine 01/27/24 02/01/24 José Luis Roberts MD [address] [place] [address] PCP - General Family Medicine 02/02/24 Adelaida Carrion NP Referring Physician Nurse Practitioner 10/14/22 Miriam Suarez DO [address] [place], [place] [address] Referring Physician Neurology 06/29/23 Mathew Parra LPN Licensed Practical Nurse Family Medicine 07/23/23 Diana De Leon LPN [address] [place] [address] Licensed Practical Nurse Family Medicine 12/18/2302/11 Adelaida Carrion NP [address] [facility] [place] [address] Nurse Practitioner Family Medicine 01/27/24 Bong Rosado, [place] [address] [place] [address] Family Medicine 02/12/24 Juany Leggett PA [address] [place] [address] Physician Blow Molding Machine Operator Neurology 07/26/24 documented as of this encounter
--- NOTE | 2024-10-10 11:58 | PM.CN ---
Consult Note: HPI Data of Consult Patient: known to practice within the last 3 years Consult date: 10/10/24 Requesting Physician: Syeda Mancuso MD Primary Care Provider: Adelaiad Carrion NP Consult Narrative Reason for consult: bilateral hip pain Narrative: 63yof who presents for assessment. continues to have bilateral low back and hip pain. hip xrs reviewed, mild degenerative changes noted, no acute pathology. would like to proceed with bilateral greater troch bursa injection. cc:: CC: Syeda Mancuso MD Review of Systems ROS Status of ROS 10 or more systems reviewed and unremarkable except as noted in history and below [facility] Medical History FH: bariatric surgery �Z84.89 - Family history of other specified conditions (ICD-10) Upper back pain �M54.9 - Dorsalgia, unspecified (ICD-10) Osteoarthritis �M19.90 - Unspecified osteoarthritis, unspecified site (ICD-10) Neck pain �M54.2 - Cervicalgia (ICD-10) Low back pain �M54.50 - Low back pain, unspecified (ICD-10) Fibromyalgia �M79.7 - Fibromyalgia (ICD-10) Bipolar 1 disorder �F31.9 - Bipolar disorder, unspecified (ICD-10) Acid reflux �K21.9 - Gastro-esophageal reflux disease without esophagitis (ICD-10) Obesity �E66.9 - Obesity, unspecified (ICD-10) Sleep apnea �G47.30 - Sleep apnea, unspecified (ICD-10) Heart murmur �R01.1 - Cardiac murmur, unspecified (ICD-10) High cholesterol �E78.00 - Pure hypercholesterolemia, unspecified (ICD-10) Hypertension �I10 - Essential (primary) hypertension (ICD-10) Surgical History S/P dilatation and curettage �Z98.890 - Other specified postprocedural states (ICD-10) H/O breast biopsy �Z98.890 - Other specified postprocedural states (ICD-10) S/P ORIF (open reduction internal fixation) fracture �Z98.890 - Other specified postprocedural states (ICD-10) �Z87.81 - Personal history of (healed) traumatic fracture (ICD-10) Hx of laparoscopic gastric banding �Z98.84 - Bariatric surgery status (ICD-10) History of tonsillectomy and adenoidectomy �Z90.89 - Acquired absence of other organs (ICD-10) History of appendectomy �Z90.49 - Acquired absence of other specified parts of digestive tract (ICD-10) History of hemilaminectomy �Z98.890 - Other specified postprocedural states (ICD-10) History of cholecystectomy �Z90.49 - Acquired absence of other specified parts of digestive tract (ICD-10) Previous section �Z98.891 - History of uterine scar from previous surgery (ICD-10) Social History Within the past year, how often did you have a drink containing alcohol: never Within the past year, how often did you have six or more drinks on one occasion: never Score interpretation: A score less than 3 is consistent with normal alcohol consumption. 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 Known occupational exposures/hazards: No Highest level of school completed/degree received: Bachelor's degree Do you want help with school or training: No Little interest or pleasure in doing things: not at all Feeling down, depressed, or hopeless: several days Meds Home Medications and Allergies Home Medications �Medication �Instructions �Recorded �Confirmed �Type amlodipine 10 mg tablet (Norvasc) 10 mg PO DAILY 09/10/22 10/08/24 History biotin 1 mg capsule 5 mg PO DAILY 09/10/22 09/19/24 History cariprazine 4.5 mg capsule 4.5 mg PO Q24H 09/10/22 09/19/24 History (Vraylar) duloxetine 60 mg capsule,delayed 60 mg PO BID 09/10/22 10/08/24 History release ferrous sulfate 325 mg (65 mg 325 mg PO BID 09/10/22 09/19/24 History iron) tablet (FeroSul) magnesium 200 mg tablet 400 mg PO QDAY 09/10/22 09/19/24 History melatonin 12 mg tablet 12 mg PO .HS PRN sleep 09/10/22 09/19/24 History omeprazole 20 mg capsule,delayed 20 mg PO QDAY 09/10/22 10/08/24 History release trazodone 150 mg tablet 150 mg PO .HS 09/10/22 10/08/24 History fluticasone propionate 50 2 spray intranasal DAILY PRN 10/20/23 10/08/24 History mcg/actuation nasal allergy symptoms spray,suspension (Flonase Allergy Relief) spironolactone 50 mg tablet 50 mg PO DAILY 10/20/23 10/08/24 History gabapentin 300 mg capsule 300 mg PO BID 11/03/23 10/08/24 History calcium citrate 200 mg PO QID 11/04/23 09/19/24 History carvedilol 12.5 mg tablet 12.5 mg PO Q12H 11/04/23 10/08/24 History multivitamin 1 tab PO DAILY 11/04/23 09/19/24 History fexofenadine 60 mg tablet (Naida 60 mg PO BID 08/08/24 09/19/24 History Allergy) losartan 100 mg tablet 100 mg PO DAILY 10/08/24 10/08/24 History ropinirole 3 mg tablet 3 mg PO .QHS 10/08/24 10/08/24 History tizanidine 4 mg tablet 4 mg PO TID PRN muscle spasticity 10/08/24 10/08/24 History Allergies Allergy/AdvReac Type Severity Reaction Status Date / Time levetiracetam (From Keppra) Allergy Severe Unknown Verified 10/08/24 02:29 adhesive Allergy Intermediate Blister Verified 10/08/24 02:29 Penicillins Allergy Intermediate Unknown Verified 10/08/24 02:29 tetracycline Allergy Intermediate Unknown Verified 10/08/24 02:29 eszopiclone (From Lunesta) Allergy Unknown Verified 10/08/24 02:29 milnacipran (From Savella) AdvReac Intermediate Agitated Verified 10/08/24 02:29 prochlorperazine (From AdvReac Intermediate Agitated Verified 10/08/24 02:29 Compazine) Exam Narrative Exam Narrative: Psych-alert and oriented x 3.� Attentive and appropriate, constitutionally normal, displays normal mood and affect per situation.� There are no obvious deficits in memory, reasoning, or intellect.� Skin-no obvious rashes, bruising, erythema noted to the patient's area of pain. Extremities- extremities are warm with minimal edema and palpable pulses. Hip-tenderness to palpation is noted over the bilateral hip joint.� Pain is elicited with internal and external rotation of the hip.� Hip provocative maneuvers are positive and consistent with the patient's normal pain.� Coordination remains intact.� Gait remains antalgic. Assessment and Plan Assessment and Plan (1) Greater trochanteric bursitis of both hips: (2) Chronic hip pain, bilateral: (3) Lumbar stenosis with neurogenic claudication: Plan 63yof who presents for assessment. continues to have low back, bilateral hip pain. hip xr reviewed, as noted. given persistence of symptoms, will proceed with bilateral greater troch bursa injections. she is in agreement. also discussed that if pain persisted, would likely need to update lumbar mri, as it has been about 4 years since this was done. she expressed understanding. follow up in 4 weeks. procedure: bilateral greater trochanteric bursa injection medications: bupivacaine 0.25% 4cc, depomedrol 40mg x2 I explained the details of the procedure to the patient including the risks, benefits and alternatives. We had an informed discussion and the patient verbalized understanding and signed the consent form. All questions were answered appropriately.� A time out was performed.� The skin overlying the right lateral hip was prepped with alcohol x3. A sterile syringe containing the above medication was attached to a 25 gauge, 3.5 inch needle under strict aseptic technique. The greater trochanter and point of tenderness was palpated. At this point, the needle was then advanced through the subcutaneous tissue down to os. The needle was withdrawn slightly and the contents of the syringe were gently injected without any resistance. The needle was removed and pressure was applied to the injection site to decrease the incidence of ecchymosis and hematoma formation.� A sterile bandage was applied. The same procedure was then completed on the opposite side. Post procedural instructions were given to the patient.
== END 2024-10-10 10:21 | disposition home or self-care (01) ==
LOC: PM 10:20
PROVIDERS: PCP Nurse Practitioner; Visit Provider Anesthesiology
DX: M70.62 Trochanteric bursitis, left hip (principal); M70.61 Trochanteric bursitis, right hip; M25.551 Pain in right hip; M25.552 Pain in left hip; M48.062 Spinal stenosis, lumbar region with neurogenic claudication
CPT/HCPCS: 20610; J0665; J1010

== ENCOUNTER 2024-10-17 10:53 | Outpatient (OUT) | payer MEDICARE, SELFPAY ==
--- OUTSIDE RECORDS SUMMARY | 2020-04-11 07:00 | XMS_ITS | Continuity of Care Document ---
Author Organization [facility] Address [address] [place] [address] [place] [address] Phone Care Team Providers Care Bell Captain Name Role Phone Kayce Chanel CNP Unavailable Unavailable Procedures Procedure Date OFFICE/OUTPATIENT VISIT, EST POSTOP FOLLOW-UP VISIT POSTOP FOLLOW-UP VISIT POSTOP FOLLOW-UP VISIT LAP RMVL GASTR ADJ DEVICE Gastric Bypass LAP RMVL GASTR ADJ DEVICE LAP GASTRIC BYPASS/SCOTT-EN-Y OFFICE/OUTPATIENT VISIT, EST PSYCH DIAGNOSTIC EVALUATION OFFICE/OUTPATIENT VISIT, EST OFFICE/OUTPATIENT VISIT, EST OFFICE/OUTPATIENT VISIT, NEW Advance Directives Directive Yes / No Effective Date File Name No Information Encounters Encounter Description Practice Location Reason(s) For Visit Diagnoses Date Provider Providers Copied on Encounter OFFICE/OUTPAT IENT VISIT, EST [facility], [address] [place] [address], [id number], [place] tel:[phone] [facility] No Information Darío Devries. [address] [place] [address], [id number], [place]. tel:[phone] Referring Provider: Kayce Chanel, [address] [place] [address] 222, [place], [address] . tel:[phone] [facility], [address] [place] [address] B, [place], [place], [id number], [place] tel:[phone] [facility] No Information Darío Devries. [address], [place], [place], [id number], [place]. tel:[phone] Referring Provider: Kayce Chanel, [address] [place] [address] [address], [facility] [place], [address] . tel:[phone] [facility], [address] [place] [address] [address], [place], [place], [id number], [place] tel:[phone] [facility] No Information Darío Devries. [facility] [address], [place], [place], [id number], [place]. tel:[phone] Referring Provider: Kayce Chanel, [address] [place] [address] [address], [place], [address] . tel:[phone] [facility], [address] [place] [address] [address], [place], [place], [id number], [place] tel:[phone] [facility] No Information Darío Devries. [facility] [address], [place], [place], [id number], [place]. tel:[phone] Referring Provider: Kayce Chanel, [facility] [address], [place], [address] . tel:[phone] [facility], [address] [place] [address] [address], [place], [address], [place] tel:[phone] [facility] No Information Darío Devries. [address] [place] [address] [address], [facility] [place], [id number], [place]. tel:[phone] Referring Provider: Kayce Chanel, [address] [place] [address] [address], [facility] [place], [address] . tel:[phone] [facility], [address] [place] [address] [address], [place], [place], [address], [place] tel:[phone] [facility] No Information Yulia Anguiano. [address] [facility] [address], [place], [place], [id number], [place]. tel:[phone] Referring Provider: Silvio Acevedo, [address] [facility] [address], [place], [address] . tel:[phone] OFFICE/OUTPAT IENT VISIT, [facility], [address] [place] [address] [address], [place], [address], [place] tel:[phone] [facility] No Information Yulia Anguiano. [address] [facility] [address], [place], [place], [address], [place]. tel:[phone] Referring Provider: Silvio Acevedo, [address] [facility] [address], [place], [address] . tel:[phone] [facility], [address] [place] [address] [address], [place], [address], [place] tel:[phone] [facility] No Information No Information OFFICE/OUTPAT IENT VISIT, [facility], [address] [place] [address] [address], [place], [place], [id number], [place] tel:[phone] [facility] No Information Yulia Anguiano. [address] [facility] [address], [place], [place], [address], [place]. tel:[phone] Referring Provider: Silvio Acevedo, [address] [facility] [address], [place], [address] . tel:[phone] OFFICE/OUTPAT IENT VISIT, [facility], [address] [place] [address] [address], [place], [place], [id number], [place] tel:[phone] [facility] No Information Yulia Anguiano. [address] [facility] [address], [place], [place], [address], [place]. tel:[phone] Referring Provider: Silvio Acevedo, [address] [facility] [address], [place], [address] . tel:[phone] OFFICE/OUTPAT IENT VISIT, [facility], [address] [facility] [address], [place], [place], [address], [place] tel:[phone] [facility] No Information Yulia Anguiano. [address] [place] [address] [address], [place], [place], [address], [place]. tel:[phone] Referring Provider: Silvio Acevedo, [address] [place] [address] [address], [place], [address] . tel:[phone] Family History Family Member Type Diagnosis Age At Onset No Information Payers Payer name Insurance type Covered alliance party ID Authorgerard thakur(s) [facility] Medicare Solutions 16 [id number] Social History Type Description Quantity Date Captured Comments Sex Female Smoking Status No Information Chief Complaint And Reason For Visit No Information Reason For Referral Reason For Referral No Information History Of Present Illness Encounter Date Complaint History Of Prese nt Illness No Information Functional Status Date Functional Assessmen t No Information Instructions Date Instruction Additional Infor mation No Information Assessments Type Assessment Date No Information Patient Care Teams Name Effective Dates (start - stop) Status Members No Information
--- OUTSIDE RECORDS SUMMARY | 2024-10-08 12:51 | XMS_ITS | Encounter Summary ---
Author Organization [employer] Address [facility] [address] [place] [address] Care Team Providers Care Dental Technology Advisor Name Role Phone Adelaida Carrion Primary Care Provider Encounter Details Date Type Department Care Team (Late st Contact Info) Description 10/08/2024 12:51 PM EDT - 10/09/2024 6:17 PM EDT Emergency [facility] Tele Stroke [address] [place] [address] Discharge Disposition: Telemedicine Discharge Social [...] that there are some limitations compared to nqwp-za-qgyg evaluations. We elected to proceed. [facility]/ [facility] TELENEUROLOGY CONSULTATION NOTE Telemedicine consultation was requested on this patient. To the best of my ability the purpose of teleneurology was reviewed with patient prior to initiation of visit and verbal consent was obtained. Hospital: [facility] Patient Seen: Floor Neurology Consult Note Consult [...] OSMANY, COPD, fibromyalgia, RLS. Patient presented to [facility] after noting memory loss and confusion. Patient [...] extremities antigravity with no drift. Patient performs eteshr-cm-nlxz testing successfully. Limited neuro examination given the limitations of video unable to test reflexes or motor strength. Lab Review No results found for this or any previous visit (from the past 24 hours). Imaging No results found. Clinical Impression: Nasim Ingram is a 63year old woman who presented to [facility] with altered mental status. 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 Patient does [...] on filedocumented in this encounter Care Teams Dental Technology Advisor Relationship Specialty Start Date End Date Adelaida Carrion APRN-CNP PCP - General Nurse Practitioner 12/10/16 documented as of this encounter
--- OUTSIDE RECORDS SUMMARY | 2024-10-13 09:00 | XMS_ITS | Encounter Summary ---
Author Organization [facility] Address [address] [place] [address] Care Team Providers Care Drink Waiter Name Role Phone Miriam Suarez Unavailable [phone] Adelaida Carrion NP Unavailable [phone] José Luis Roberts MD Primary Care Provider [phone] Bong Rosado MA Unavailable [phone] Juany Leggett Unavailable Reason for Visit * Reason Comments Hospital Follow-up Encounter Details Date Type Department Care Team (Late st Contact Info) Description 10/13/2024 9:00 AM EDT Office Visit [facility] [address] [place] [address] Adelaida Carrion, BRIANA [address] [place] [address] Disorientation (Primary Dx); Essential (primary) hypertension ; Allergic rhinitis, unspecified seasonality, unspecified trigger; Allergic rhinitis, unspecified; Gastro-esophageal reflux disease without esophagitis; Bilateral lower extremity edema; OSMANY (obstructive sleep apnea); Primary hypertension ; Osteoporosis, unspecified osteoporosis type, unspecified pathological fracture presence Social History Tobacco Use Types Packs/Day Years [...] How often do you attend sikh or druze serv ices? Never 08/16/2023 Do [...] [facility] - [...] Sign Reading Time Taken Comments Blood Pressure 132/80 10/13/2024 8:42 AM EDT Pulse 85 10/13/2024 8:42 AM EDT Temperature 36.9 C (98.5 F) 10/13/2024 8:42 AM EDT Respiratory Rate 20 10/13/2024 8:42 AM EDT Oxygen Saturation 95% 10/13/2024 8:42 AM EDT Inhaled Oxygen Concentration - - Weight 129 kg (284 lb) 10/13/2024 8:42 AM EDT Height - - Body Mass Index 48.75 07/26/2024 10:48 AM EDT documented in this encounter Progress Notes * Adelaida Carrion NP - 10/13/2024 9:05 AM EDTAssociated Problem(s): Primary hypertension Please check blood pressure daily and record DASH diet Limit caffeine Take medication as directed Contact office if chest pain, pressure, dizziness, shortness of breath, swelling legs Recommend slow position changes Current meds: amlodipine, losartan, aldactone * Adelaida Carrion NP - 10/13/2024 9:04 AM EDTAssociated Problem(s): OSMANY (obstructive sleep apnea) You have a diagnosis of obstructive sleep apnea. It is recommended that you wear your PAP device any time while in bed sleeping. Not using the PAP device can increase your risk of elevated/uncontrolled high blood pressure, atrial fibrillation, heart attack, stroke, or sudden . Compliance with PAP: yes has restarted with wearing it Company that supplies your machine and tubing/filters etc: [facility] Doctor that manages your OSMANY: Daniela * Adelaida Carrion NP - 10/13/2024 9:04 AM EDTAssociated Problem(s): Disorientation [place] to be related to not using PAP I have reviewed hospital and ER notes Sxs have resolved She is going to be having MRI out pt Continue fu with neuro Wear PAP * Adelaida Carrion NP - 10/13/2024 9:00 AM EDT Images from the original note were not included. Nasim Ingram is a 63 y.o. female presents with chief complaint of Hospital Follow-up HPI: Here for hospital follow up: Er 10/07/24 altered mental status was fine throughout the day, confusionstarted in 6-7pm that night. Was having some trouble finding the right words, no weakness on eitherside of body, no vision changes, no SMART up to hospital room about 5am, telemed in the afternoon Is going to have out patient MRI . [place] that she had some encephalopathy with not wearing PAP She is now wearing her pap. Is back to her baseline able to remember words etc. No weakness no dizziness noted either Follows with Juany Rascon NP SUBJECTIVE: MEDICATIONS: Current Outpatient Medications Medication Instructions amLODIPine (NORVASC) 10 mg, Oral, Daily biotin 5 MG tablet Pt taking OTC ([employer]) Calcium Citrate-Vitamin D (CITRACAL + D PO) Pt taking OTC (Keegy) carvedilol (COREG) 12.5 mg, Oral, 2 times daily with meals DULoxetine (CYMBALTA) 60 mg, 2 times daily fexofenadine (NAIDA) 180 mg, Oral, Daily fluticasone (Flonase) 50 MCG/ACT nasal spray 2 sprays, Each Nostril, Daily gabapentin (NEURONTIN) 300 mg, Oral, 2 times daily, Due now LORazepam (Ativan) 1 MG tablet TAKE 1 TABLET BY MOUTH once a week NEEDED for acute or severe anxiety losartan (COZAAR) 100 mg, Oral, Daily Magnesium 400 MG capsule Pt taking OTC([employer]) Melatonin 12 MG tablet 1 tablet, Nightly Multiple Vitamins-Minerals (BARIATRIC MULTIVITAMINS/IRON PO) Pt taking OTC ([employer]) omeprazole (PRILOSEC) 20 mg, Oral, Daily before breakfast rOPINIRole (REQUIP) 3 mg, Oral, Nightly spironolactone (ALDACTONE) 50 mg, Oral, Daily tiZANidine (ZANAFLEX) 4 mg, Every 8 hours PRN traZODone (DESYREL) 150 mg, Nightly Vraylar 4.5 mg, Daily ALLERGIES: Allergies Allergen Reactions Eszopiclone Hallucinations [...] Musculoskeletal: Positive for arthralgias, back pain and neck pain. Negative for joint swelling andmyalgias. Skin: Negative for rash and wound. Neurological: [...] Anxiety 05/18/2023 Bipolar disorder with severe depression (HCC) 05/18/2023 Brain lesion Brain vascular malformation (HHS-HCC) Chronic pain disorder Closed fracture of patella 02/04/2018 Colon polyps Constipation Degenerative cervical disc Degenerative lumbar disc Depression 05/18/2023 Diastolic dysfunction Dizziness 05/18/2023 Dysphagia Fibromyalgia Fibromyalgia Gastrocnemius equinus GERD (gastroesophageal reflux disease) Heart murmur Hematoma of right breast Hemiparesis (HCC) Hemiparesis, right (HCC) Hemorrhoid int/external hemorrhoids Hiatal hernia Iron deficiency Left foot pain 03/25/2023 Lower extremity edema Mood disorder mixed mood disorder OSMANY (obstructive sleep apnea) Osteoporosis Overactive bladder Pre-diabetes Primary hypertension 03/25/2023 PTSD (post-traumatic stress disorder) Restless leg Right knee pain Right sided weakness S/P bariatric surgery Shingles Slurred speech Stroke (HCC) 2018 Tenosynovitis, de Quervain Thoracic back pain, [...] in her mother. OBJECTIVE: Visit Vitals BP 132/80 (BP Location: Left arm, Patient Position: Sitting, BP Cuff Size: Large adult) Pulse 85 Temp 98.5 ??F (Temporal) Resp 20 Wt 284 lb SpO2 95% BMI 48.75 kg/m?? Smoking Status Former BSA 2.41 m?? Physical Exam Vitals and nursing note reviewed. Constitutional: General: She is not in acute distress. Appearance: Normal appearance. She is obese. She is not ill-appearing. HENT: Head: Normocephalic and atraumatic. Right Ear: Tympanic membrane, ear canal and external ear normal. Left Ear: Tympanic membrane, ear canal and external ear normal. Nose: Nose normal. No congestion or rhinorrhea. Mouth/Throat: Mouth: Mucous membranes are moist. Pharynx: No oropharyngeal exudate or posterior oropharyngeal erythema. Eyes: Extraocular Movements: Extraocular movements intact. Conjunctiva/sclera: Conjunctivae normal. Neck: Vascular: No carotid bruit. Cardiovascular: Rate and Rhythm: Normal rate and regular rhythm. Pulses: Normal pulses. Heart sounds: Murmur heard. Pulmonary: Effort: Pulmonary effort is normal. [...] and oriented to person, place, and time. Cranial Nerves: No cranial nerve deficit. Comments: Neg ulnar drift, neg romberg Psychiatric: Mood and Affect: Mood normal. Behavior: Behavior normal. Thought Content: Thought content normal. Judgment: Judgment normal. ASSESSMENT AND PLAN: No follow-ups on file. Problem List Items Addressed This Visit OSMANY (obstructive sleep apnea) You have a diagnosis of obstructive sleep apnea. It is recommended that you wear your PAP device any time while in bed sleeping. Not using the PAP device can increase your risk of elevated/uncontrolled high blood pressure, atrial fibrillation, heart attack, stroke, or sudden . Compliance with PAP: yes has restarted with wearing it [employer] that supplies your machine and tubing/filters etc: [facility] Doctor that manages your OSMANY: Daniela Osteoporosis Relevant Orders DEXA bone density Allergic rhinitis Relevant Medications fexofenadine (Naida) 180 MG tablet Bilateral lower extremity edema Relevant Medications spironolactone (Aldactone) 50 MG tablet Primary hypertension Please check blood pressure daily and record DASH diet Limit caffeine Take medication as directed Contact office if chest pain, pressure, dizziness, shortness of breath, swelling legs Recommend slow position changes Current meds: amlodipine, losartan, aldactone Disorientation - Primary [place] to be related to not using PAP I have reviewed hospital and ER notes Sxs have resolved She is going to be having MRI out pt Continue fu with neuro Wear PAP Other Visit Diagnoses Essential (primary) hypertension Relevant Medications amLODIPine (Norvasc) 10 MG tablet carvedilol (Coreg) 12.5 MG tablet losartan (Cozaar) 100 MG tablet Allergic rhinitis, unspecified Relevant Medications fluticasone (Flonase) 50 MCG/ACT nasal spray Gastro-esophageal reflux disease without esophagitis Relevant Medications omeprazole (PriLOSEC) [address] capsule documented in this encounter Plan of Treatment Upcoming Encounters Date Type Department Care Team (Late st Contact Info) Description 11/14/2024 10:30 AM EDT Procedure Visit [facility] [address] [place] [id number] Adelaida Carrion NP [address] [place] [phone] Scheduled Orders Name Type Priority Associated Diagnoses Orde r Schedule DEXA bone density Imaging Routine Osteoporosis, unspecified osteoporosis type, unspecified pathological fracture presence Expected: 10/13/2024 (Approximate), Expires: 10/13/2025 documented as of this encounter Visit Diagnoses Diagnosis Disorientation- Primary Other general symptoms Essential (primary) hypertension Unspecified essential hypertension Allergic rhinitis, unspecified seasonality, unspecified trigger Gastro-esophageal reflux disease without esophagitis Bilateral lower extremity edema OSMANY (obstructive sleep apnea) Obstructive sleep apnea (adult) (pediatric) Primary hypertension Unspecified essential hypertension Osteoporosis, unspecified osteoporosis type, unspecified pathological fracture presence documented in this encounter Additional Health Concerns Assessment Noted Time PHQ-9 Depression Total Score: 8 05/18/19 24 5:00 PM EST documented as of this encounter Care Teams Drink Waiter Relationship Specialty Start Date End Date José Luis Roberts MD [address] [place] [address] PCP - General Family Medicine 02/02/24 Miriam Suarez DO [address] [place] [address] Referring Physician Neurology 06/29/23 Adelaida Carrion, BRIANA [address] [place] [address] Nurse Practitioner Family Medicine 01/27/24 Bong Rosado, [place] [address] [place] [address] Family Medicine 02/12/24 Juany Leggett PA [address] [place] [address] Physician House Parent Neurology 07/26/24 documented as of this encounter
--- OUTSIDE RECORDS SUMMARY | 2024-10-17 10:54 | XMS_ITS | Encounter Summary ---
Author Organization [facility] Address [address] [place] [address] Care Team Providers Care Butter Maker Name Role Phone Adelaida Carrion NP Unavailable [phone] José Luis Roberts MD Primary Care Provider [phone] Miriam Suarez DO Unavailable [phone] Mathew Parra BUILDING CONSTRUCTION CONTRACTOR Unavailable Unavailable Diana De Leon LPN Unavailable Unallocated, [facility] Provider Primary Care Provi kellee Adelaida Carrion NP Unavailable [phone] José Luis Roberts MD Primary Care Provider [phone] Bong Rosado MA Unavailable [phone] Juany Leggett Unavailable Encounter Details Date Type Department Care Team (Late st Contact Info) Description 10/27/2023 Abstract [facility] [address] [place] [phone] Unallocated, [facility] Provider, [address] [place], [place] [id number] Social History Tobacco Use Types Packs/Day Years [...] How often do you attend tenriism or hoahaoism serv ices? Never 08/16/2023 Do [...] Recorded Patient Health Questionnaire-2 Score 2 09/21/2023 [facility] of Occupat ional Health - Occupational Stress [...] Description 11/14/2024 10:30 AM EDT Procedure Visit [facility] [address] [place] [phone] Adelaida Carroin, BRIANA [address] [place] [address] documented as of this encounter Visit Diagnoses Not on filedocumented in this encounter Additional Health Concerns Assessment Noted Time PHQ-9 Depression Total Score: 8 05/18/19 24 5:00 PM EST documented as of this encounter Care Teams Butter Maker Relationship Specialty Start Date End Date José Luis Roberts MD [address] [place] [phone] PCP - General Family Medicine 05/18/23 01/26/24 Unallocated, Johan Sierra MD [address] [facility] [place] [address] PCP - General Family Medicine 01/27/24 02/01/24 José Luis Roberts MD [address] [place] [address] PCP - General Family Medicine 02/02/24 Adelaida Carrion NP Referring Physician Nurse Practitioner 10/14/22 Miriam Suarez DO [address] [place] [address] Referring Physician Neurology 06/29/23 Mathew Parra LPN Licensed Practical Nurse Family Medicine 07/23/23 Diana De Leon LPN [address] [place], [place] [id number] Licensed Practical Nurse Family Medicine 12/18/2302/11 Adelaida Carrion NP [address] [place] [address] Nurse Practitioner Family Medicine 01/27/24 Bong Rosado, [place] [address] [place] [address] Family Medicine 02/12/24 Juany Leggett PA [address] [place] [address] Physician Day Care Attendant Neurology 07/26/24 documented as of this encounter
--- OUTSIDE RECORDS SUMMARY | 2024-10-17 10:54 | XMS_ITS | Encounter Summary ---
Author Organization [facility] Address [address] [place] [address] Care Team Providers Care Associate Financial Planner Name Role Phone Miriam Suarez DO Unavailable [phone] Adelaida Carrion NP Unavailable [phone] José Luis Roberts MD Primary Care Provider [phone] Bong Rosado MA Unavailable [phone] Juany Leggett Unavailable Reason for Visit * Reason Onset Date Comments Med Refill 04/12/2024 Encounter Details Date Type Department Care Team (Late st Contact Info) Description 04/12/2024 Refill [facility] [address] [place] [address] José Luis Roberts MD [address] [place] [address] Social History Tobacco Use Types Packs/Day Years [...] How often do you attend shinto or caodaism serv ices? Never 08/16/2023 Do you belong [...] Recorded Patient Health Questionnaire-2 Score 2 09/21/2023 [facility] [place] of Occupat ional Health - Occupational Stress [...] 10:30 AM EDT Procedure Visit [facility] [address] [place] [address] Adelaida Carrion NP [address] [place] [address] documented as of this encounter Visit Diagnoses Not on filedocumented in this encounter Additional Health Concerns Assessment Noted Time PHQ-9 Depression Total Score: 8 05/18/19 24 5:00 PM EST documented as of this encounter Care Teams Associate Financial Planner Relationship Specialty Start Date End Date José Luis Roberts MD [address] [place] [phone] PCP - General Family Medicine 02/02/24 Miriam Suarez DO [address] [place] [address] Referring Physician Neurology 06/29/23 Adelaida Carrion NP [address] [place] [phone] Nurse Practitioner Family Medicine 01/27/24 Bong Rosado MA [address] [place] [address] Family Medicine 02/12/24 Juany Leggett PA [address] [place] [address] Physician Alliance Director Neurology 07/26/24 documented as of this encounter
--- OUTSIDE RECORDS SUMMARY | 2024-10-17 10:55 | XMS_ITS | Encounter Summary ---
Author Organization [facility] Address [address] [place] [address] Care Team Providers Care Hardware Developer Name Role Phone Miriam Suarez DO Unavailable [phone] Adelaida Carrion NP Unavailable [phone] José Luis Roberts MD Primary Care Provider Bong Rosado MA Unavailable [phone] Juany Legegtt Unavailable Encounter Details Date Type Department Care Team (Late st Contact Info) Description 08/08/2024 Abstract [facility] [address] [place] [address] José Luis Roberts MD [address] [place] [address] Social History Tobacco Use Types Packs/Day Years [...] How often do you attend advent or gnosticist serv ices? Never 08/16/2023 Do [...] Recorded Patient Health Questionnaire-2 Score 2 09/21/2023 [facility]ational Stress Questionnaire [...] 11/14/2024 10:30 AM EDT Procedure Visit [facility] [address] [place] [address] Adelaida Carrion NP [address] [place] [address] documented as of this encounter Visit Diagnoses Not on filedocumented in this encounter Additional Health Concerns Assessment Noted Time PHQ-9 Depression Total Score: 8 05/18/19 24 5:00 PM EST documented as of this encounter Care Teams Hardware Developer Relationship Specialty Start Date End Date José Luis Roberts MD [address] [place] [address] PCP - General Family Medicine 02/02/24 Miriam Suarez DO [address] [place] [address] Referring Physician Neurology 06/29/23 Adleaida Carrion NP [address] [place] [address] Nurse Practitioner Family Medicine 01/27/24 Bong Rosado MA [address] [place] [address] Family Medicine 02/12/24 Juany Leggett PA [address] [place] [address] Physician Shipping Lead Neurology 07/26/24 documented as of this encounter
--- OUTSIDE RECORDS SUMMARY | 2024-10-17 10:55 | XMS_ITS | Encounter Summary ---
Author Organization [facility] Address [address] [place] [address] Care Team Providers Care Business Owner/Engineer Name Role Phone Miriam Suarez Unavailable [phone] Adelaida Carrion NP Unavailable [phone] José Luis Roberts MD Primary Care Provider Bong Rosado MA Unavailable [phone] Juany Leggett Unavailable Encounter Details Date Type Department Care Team (Late st Contact Info) Description 10/13/2024 Bamboo flowsheet [facility] [address] [place] [address] Adelaida Carrion, BRIANA [address] [place] [address] Social History Tobacco Use Types [...] How often do you attend faith or congregation serv ices? Never 08/16/2023 Do [...] Recorded Patient Health Questionnaire-2 Score 2 09/21/2023 [facility] - Occupational Stress [...] 10:30 AM EDT Procedure Visit [facility] [address] [place] [address] Adelaida Carrion NP [address] [place] [address] documented as of this encounter Visit Diagnoses Not on filedocumented in this encounter Additional Health Concerns Assessment Noted Time PHQ-9 Depression Total Score: 8 05/18/19 24 5:00 PM EST documented as of this encounter Care Teams Business Owner/Engineer Relationship Specialty Start Date End Date José Luis Roberts MD [address] [place] [address] PCP - General Family Medicine 02/02/24 Miriam Suarez DO [address] [place] [address] Referring Physician Neurology 06/29/23 Adelaida Carrion NP [address] [place] [address] Nurse Practitioner Family Medicine 01/27/24 Bong Rosado MA [address] [place] [address] Family Medicine 02/12/24 Juany Leggett PA [address] [place] [address] Physician Publication Designer Neurology 07/26/24 documented as of this encounter
--- OUTSIDE RECORDS SUMMARY | 2024-10-17 10:55 | XMS_ITS | Encounter Summary ---
Author Organization [facility] Address [address] [place] [address] Care Team Providers Care Whale Trainer Name Role Phone Miriam Suarez Unavailable [phone] Adelaida Carrion NP Unavailable [phone] José Luis Roberts MD Primary Care Provider Bong Rosado MA Unavailable [phone] Juany Leggett Unavailable Encounter Details Date Type Department Care Team (Late st Contact Info) Description 10/10/2024 Abstract [facility] [address] [place] [address] Adelaida Carrion, BRIANA [address] [place] [address] Social History Tobacco Use Types [...] How often do you attend orthodox or spiritism serv ices? Never 08/16/2023 Do [...] Patient Health Questionnaire-2 Score 2 09/21/2023 [facility] - Occupational [...] Visit [facility] [address] [place] [address] Adelaida Carrion NP [address] [place] [address] documented as of this encounter Visit Diagnoses Not on filedocumented in this encounter Additional Health Concerns Assessment Noted Time PHQ-9 Depression Total Score: 8 05/18/19 24 5:00 PM EST documented as of this encounter Care Teams Whale Trainer Relationship Specialty Start Date End Date José Luis Roberts MD [address] [place] [address] PCP - General Family Medicine 02/02/24 Miriam Suarez DO [address] [place] [address] Referring Physician Neurology 06/29/23 Adelaida Carrion NP [address] [place] [address] Nurse Practitioner Family Medicine 01/27/24 Bong Rosado MA [address] [place] [address] Family Medicine 02/12/24 Juany Leggett PA [address] [place] [address] Physician Apparatus Repair Mechanic Neurology 07/26/24 documented as of this encounter
--- OUTSIDE RECORDS SUMMARY | 2024-10-17 10:55 | XMS_ITS | Encounter Summary ---
Author Organization [facility] Address [address] [place] [address] Care Team Providers Care Cloth Designer Name Role Phone Miriam Suarez Unavailable [phone] Adelaida Carrion NP Unavailable [phone] José Luis Roberts MD Primary Care Provider Bong Rosado MA Unavailable [phone] Juany Leggett Unavailable Encounter Details Date Type Department Care Team (Late st Contact Info) Description 10/10/20[address] [facility] [address] [place] [address] Adelaida Carrion, BRIANA [address] [place] [address] Social History Tobacco Use Types [...] How often do you attend religious or denominational serv ices? Never 08/16/2023 Do [...] Visit [facility] [address] [place] [address] Adelaida Carrion NP [address] [place] [address] documented as of this encounter Visit Diagnoses Not on filedocumented in this encounter Additional Health Concerns Assessment Noted Time PHQ-9 Depression Total Score: 8 05/18/19 24 5:00 PM EST documented as of this encounter Care Teams Cloth Designer Relationship Specialty Start Date End Date José Luis Roberts MD [address] [place] [address] PCP - General Family Medicine 02/02/24 Miriam Suarez DO [address] [place] [address] Referring Physician Neurology 06/29/23 Adelaida Carrion NP [address] [place] [address] Nurse Practitioner Family Medicine 01/27/24 Bong Rosado MA [address] [address] Family Medicine 02/12/24 Juany Leggett PA [address] [place] [address] Physician Automobile Carpets Molder Neurology 07/26/24 documented as of this encounter
--- OUTSIDE RECORDS SUMMARY | 2024-10-17 10:55 | XMS_ITS ---
Author Organization [facility] Address [address] [place] [address] Care Team Providers Care Metallographer Name Role Phone Miriam Suarez DO Unavailable [phone] Adelaida Carrion NP Unavailable [phone] José Luis Roberts MD Primary Care Provider [phone] Bong Rosado MA Unavailable [phone] Juany Leggett Unavailable Chronic Care Management [...] Name Relationship Phone Bong Rosado MA(Responsible Staff) [phone] Continued Care and Services Coordination
--- OUTSIDE RECORDS SUMMARY | 2024-10-17 10:55 | XMS_ITS | Encounter Summary ---
Author Organization [facility] Address [address] [place] [address] Care Team Providers Care Product Marketing Engineer Name Role Phone Miriam Suarez DO Unavailable [phone] Adelaida Carrion NP Unavailable [phone] José Luis Roberts MD Primary Care Provider Bong Rosado MA Unavailable [phone] Juany Leggett Unavailable Reason for Visit * Reason Onset Date Comments Med Refill 07/08/2024 Encounter Details Date Type Department Care Team (Late st Contact Info) Description 07/08/2024 Refill [facility] [address] [place] [address] José Luis Roberts MD [address] [place] [address] Social History Tobacco Use Types [...] How often do you attend denominational or restoration serv ices? Never 08/16/2023 Do you belong [...] Recorded Patient Health Questionnaire-2 Score 2 09/21/2023 [facility] ional Health - Occupational Stress [...] LU - 07/19/2024 9:59 AM EDT Text Bone Char Kiln Operator Hi, this is Nasim Ingram. My date of versus 9162 was calling about the dilkon that I requested to be called in yesterday. There is nothing at drug more yet. Thank you. * Telephone Encounter - VALERIE LU - 07/18/2024 10:57 AM EDT Text Bone Char Kiln Operator Adelaida Fraser, this is Nasim Ingram. Surendra [phone] need to have you call in a prescription for [place] to the pharmacy at [facility], Dr. Ricci, other yeast infection, thank you. * Telephone Encounter - Adelaida Carrion NP - 07/13/2024 9:04 PM EDT Ordered by pain mgmt documented in this encounter Plan of Treatment Upcoming Encounters Date Type Department Care Team (Late st Contact Info) Description 11/14/2024 10:30 AM EDT Procedure Visit [facility] [address] [place] [address] Adelaida Carrion NP [address] [place] [address] documented as of this encounter Visit Diagnoses Not on filedocumented in this encounter Additional Health Concerns Assessment Noted Time PHQ-9 Depression Total Score: 8 05/18/19 24 5:00 PM EST documented as of this encounter Care Teams Product Marketing Engineer Relationship Specialty Start Date End Date José Luis Roberts MD [address] [place] [address] PCP - General Family Medicine 02/02/24 Miriam Suarez DO [address] [place] [address] Referring Physician Neurology 06/29/23 Adelaida Carrion NP [address] [place] [address] Nurse Practitioner Family Medicine 01/27/24 Bong Rosado MA [address] [place] [address] Family Medicine 02/12/24 Juany Leggett PA [address] [place] [address] Physician Consulting Services Manager Neurology 07/26/24 documented as of this encounter
--- OUTSIDE RECORDS SUMMARY | 2024-10-17 10:55 | XMS_ITS | Encounter Summary ---
Author Organization [facility] Address [address] [place] [address] Care Team Providers Care Model Maker Scale Name Role Phone Miriam Suarez DO Unavailable [phone] Adelaida Carrion NP Unavailable [phone] José Luis Roberts MD Primary Care Provider [phone] Bong Rosado MA Unavailable [phone] Juany Leggett Unavailable Encounter Details Date Type Department Care Team (Late st Contact Info) Description 03/02/2024 Orders Only [facility] [address] [place] [address] Adelaida Carrion, BRIANA [address] [place] [address] Social History Tobacco Use Types Packs/Day Years [...] How often do you attend episcopalian or orthodoxy serv ices? Never 08/16/2023 Do [...] Patient Health Questionnaire-2 Score 2 09/21/2023 [facility] - Occupational Stress Questionnaire [...] Visit [facility] [address] [place] [address] Adelaida Carrion NP [address] [place] [address] documented as of this encounter Procedures Procedure Name Priority Date/Time Associated Diagnosis Comments SCANNED LABS Routine 03/02/2024 7:33 AM EST documented in this encounter Results * SCANNED LABS (03/02/2024 7:33 AM EST) Adelaida Carrion PARTS SALES REPRESENTATIVE LAB CHG PERFORMABLES Final Resu lt documented in this encounter Visit Diagnoses Not on filedocumented in this encounter Additional Health Concerns Assessment Noted Time PHQ-9 Depression Total Score: 8 05/18/19 24 5:00 PM EST documented as of this encounter Care Teams Model Maker Scale Relationship Specialty Start Date End Date José Luis Roberts MD [address] [place] [address] PCP - General Family Medicine 02/02/24 Miriam Suarez DO [address] [place] [address] Referring Physician Neurology 06/29/23 Adelaida Carrion NP [address] [place] [address] Nurse Practitioner Family Medicine 01/27/24 Bong Rosado MA [address] [place] [address] Family Medicine 02/12/24 Juany Leggett PA [address] [place] [address] Physician Recessing Machine Operator Neurology 07/26/24 documented as of this encounter
--- OUTSIDE RECORDS SUMMARY | 2024-10-17 10:55 | XMS_ITS | Encounter Summary ---
Author Organization [facility] Address [address] [place] [address] Care Team Providers Care Bankruptcy Manager Name Role Phone Adelaida Carrion NP Unavailable [phone] José Luis Roberts MD Primary Care Provider [phone] Miriam Suarez DO Unavailable [phone] Mathew Parra CIVIL ENGINEERING SPECIALIST Unavailable Unavailable Diana De Leon CIVIL ENGINEERING SPECIALIST Unavailable Unallocated, [facility] Provider Primary Care Provi kellee Adelaida Carrion NP Unavailable [phone] José Luis Roberts MD Primary Care Provider [phone] Bong Rosado MA Unavailable [phone] Juany Leggett Unavailable Encounter Details Date Type Department Care Team (Late st Contact Info) Description 09/21/2023 Orders Only [facility] [address] [place] [address] Adelaida Carrion NP [address] [facility] [place] [address] Social History Tobacco Use Types [...] declined 08/16/2023 How often do you attend roman catholic or roman catholic serv ices? Never 08/16/2023 Do you belong to any clubs o r organizations such as roman catholic groups, unions, fraternal or athletic groups, [...] Visit [facility] [address] [place] [address] Adelaida Carrion NP [address] [place] [address] documented as of this encounter Procedures Procedure [...] documented as of this encounter Care Teams Bankruptcy Manager Relationship Specialty Start Date End Date José Luis Roberts MD [address] [place] [address] PCP - General Family Medicine 05/18/23 01/26/24 Unallocated, Johan Sierra MD [address] [place] [address] PCP - General Family Medicine 01/27/24 02/01/24 José Luis Roberts MD [address] [place] [address] PCP - General Family Medicine 02/02/24 Adelaida Carrion NP Referring Physician Nurse Practitioner 10/14/22 Miriam Suarez DO [address] [place] [address] Referring Physician Neurology 06/29/23 Mathew Parra LPN Licensed Practical Nurse Family Medicine 07/23/23 Diana De Leon LPN [address] [place] [address] Licensed Practical Nurse Family Medicine 12/18/2302/11 Adelaida Carrion NP [address] [place] [address] Nurse Practitioner Family Medicine 01/27/24 Bong Rosado, [place] [address] [place] [address] Family Medicine 02/12/24 Juany Leggett PA [address] [place], [place] [address] Physician Salesperson [employer] Neurology 07/26/24 documented as of this encounter
--- OUTSIDE RECORDS SUMMARY | 2024-10-17 10:55 | XMS_ITS | Encounter Summary ---
Author Organization [facility] Address [address] [place] [address] Care Team Providers Care Regional Hr Manager Name Role Phone Miriam Suarez DO Unavailable [phone] Adelaida Carrion NP Unavailable [phone] José Luis Roberts MD Primary Care Provider Bong Rosado MA Unavailable [phone] Juany Leggett Unavailable Encounter Details Date Type Department Care Team (Late st Contact Info) Description 03/08/2024 Orders Only [facility] [address] [place] [address] Dennis Steel DO Social History [...] How often do you attend baptism or nondenominational serv ices? Never 08/16/2023 Do [...] 11/14/2024 10:30 AM EDT Procedure Visit [facility] [address] [place] [address] Adelaida Carrion NP [address] [place] [address] documented as of this encounter Procedures Procedure [...] documented as of this encounter Care Teams Regional Hr Manager Relationship Specialty Start Date End Date José Luis Roberts MD [address] [place] [address] PCP - General Family Medicine 02/02/24 Miriam Suarez DO [address] [place] [address] Referring Physician Neurology 06/29/23 Adelaida Carrion NP [address] [place] [address] Nurse Practitioner Family Medicine 01/27/24 Bong Rosado MA [address] [place] [address] Family Medicine 02/12/24 Juany Leggett PA [address] [place], [place] [address] Physician Hospice Plan Administrator Neurology 07/26/24 documented as of this encounter
--- OUTSIDE RECORDS SUMMARY | 2024-10-17 10:55 | XMS_ITS | Encounter Summary ---
Author Organization [facility] Address [address] [place] [address] Care Team Providers Care Staff Therapist Name Role Phone Adelaida Carrion NP Unavailable [phone] José Luis Roberts MD Primary Care Provider [phone] Miriam Suarez DO Unavailable [phone] Mathew Parra DEWATERER OPERATOR Unavailable Unavailable Diana De Leon LPN Unavailable Unallocated, [facility] Provider Primary Care Provi kellee Adelaida Carrion NP Unavailable [phone] José Luis Roberts MD Primary Care Provider [phone] Bong Rosado MA Unavailable [phone] Juany Leggett Unavailable Encounter Details Date Type Department Care Team (Late st Contact Info) Description 09/18/2023 Clinisync Result Encounter [facility] External Department Unsolicited Adelaida Carrion NP [address] [place] [address] Social History Tobacco Use Types Packs/Day Years [...] How often do you attend pentecostalism or roman catholic serv ices? Never 08/16/2023 [...] 10:30 AM EDT Procedure Visit [facility] [address] [place] [address] Adelaida Carrion NP [address] [place] [address] documented as of this encounter Procedures Procedure Name Priority Date/Time Associated Diagnosis Comments MM TOMOSYNTHESIS SCREENING BI 09/18/2023 1:42 PM EDT documented in this encounter Results * MM TOMOSYNTHESIS SCREENING BI (09/18/2023 1:42 PM EDT) Anatomical Region Laterality Modality Other 09/18/2023 1:42 PM EDT Narrative 09/18/2023 1:43 PM EDT The [address] [address] Mammography Report Signed Patient: NASIM INGRAM MR#: [id number] : 1960 Acct:[id number] Age/Sex: 62 / F ADM Date: 09/18/23 Loc: MAMMO Attending Dr: Adelaida Carrion STEAM PIPE FITTER Ordering Physician: Aichholz,Adelaida STEAM PIPE FITTER Results: Date of Service: 09/18/23 Follow Up: Procedure(s): MM tomosynthesis screening BI Accession Number(s): [id number] cc: Adelaida Carrion NP Patient Name: NASIM INGRAM MR#: [id number] : 1960 Exam Date: 09/18/2023 Ordering Doctor: [...] LOCATION: The [facility] BREAST COMPOSITION: There are scattered areas of [...] Signed By: 09/18/23 1343 DD/ 1342 TD/TT: Agri Business Agent: Procedure Note Radiology, Radiologist, - 09/18/2023 [place] [address] Mammography Report Signed Patient: NASIM INGRAM LMR#: [id number] : 1960cct:[id number] Age/Sex: 62 / FADM Date: 09/18/23 Loc: MAMMO Attending Dr: Adelaida Carrion NP Ordering Physician: Adelaida Carrion NPResults: Date of Service: 09/18/23Follow Up: Procedure(s): MM tomosynthesis screening BI Accession Number(s): [id number] cc: Adelaida Carrion NP Patient Name: NASIM INGRAM MR#: [id number] : 1960 Exam Date: 09/18/2023 Ordering Doctor: LIVIER Carrion CNP RADIOLOGY REPORT PROCEDURE: MM TOMOSYNTHESIS SCREENING BI COMPARISON: MM TOMOSYNTHESIS SCREENING BI, 09/15/2022. MG MAMM [id number] [id number] CAD, 06/20/2021. INDICATIONS: Screening Calculator Name NCI Breast Cancer Risk Assessment Tool 5 Year Breast Cancer Risk 2.20% Lifetime Breast Cancer Risk 10.30% Personal Breast Cancer No Personal Ovarian Cancer No Treatments None Family Cancers None LOCATION: The [facility] BREAST COMPOSITION: There are scattered areas of [...] M.D. Signed By:09/18/23 1343 DD/ 1342 TD/TT: Agri Business Agent: us Adelaida Carrion NP [facility] Final Result documented in this encounter Visit Diagnoses Not on filedocumented in this encounter Additional Health Concerns Assessment Noted Time PHQ-9 Depression Total Score: 8 05/18/19 24 5:00 PM EST documented as of this encounter Care Teams Staff Therapist Relationship Specialty Start Date End Date José Luis Robrets MD [address] [place] [address] PCP - General Family Medicine 05/18/23 01/26/24 Unallocated, Johan Sierra MD [address] [place] [address] PCP - General Family Medicine 01/27/24 02/01/24 José Luis Roberts MD [address] [place] [address] PCP - General Family Medicine 02/02/24 Adelaida Carrion NP Referring Physician Nurse Practitioner 10/14/22 Miriam Suarez DO [address] [place], [place] [address] Referring Physician Neurology 06/29/23 Mathew Parra LPN Licensed Practical Nurse Family Medicine 07/23/23 Diana De Leon LPN [address] [place] [address] Licensed Practical Nurse Family Medicine 12/18/2302/11 Adelaida Carrion NP [address] [place] [address] Nurse Practitioner Family Medicine 01/27/24 Bong Rosado MA [address] [place] [address] Family Medicine 02/12/24 Juany Leggett PA [address] [place], [place] [address] Physician Complaint Inspector Neurology 07/26/24 documented as of this encounter
--- OUTSIDE RECORDS SUMMARY | 2024-10-17 10:55 | XMS_ITS | Encounter Summary ---
Author Organization [facility] Address [address] [place] [address] Care Team Providers Care Charity Fundraiser Name Role Phone Adelaida Carrion NP Unavailable [phone] José Luis Roberts MD Primary Care Provider [phone] Miriam Suarez DO Unavailable [phone] Mathew Parra CIGAR BANDER HAND Unavailable Unavailable Diana De Leon LPN Unavailable Unallocated, Noms Provider Primary Care Provi kellee Adelaida Carrion NP Unavailable [phone] José Luis Roberts MD Primary Care Provider [phone] Bong Rosado MA Unavailable [phone] Juany Leggett Unavailable Encounter Details Date Type Department Care Team (Late st Contact Info) Description 09/02/2023 Orders Only [facility] [address] [place] [address] Shaikh Alberto MD [address] [place] [address] Social History Tobacco Use Types [...] How often do you attend voodoo or confucianism serv ices? Never 08/16/2023 Do you belong [...] Recorded Patient Health Questionnaire-2 Score 0 08/17/2023 [facility] - [...] Visit [facility] [address] [place] [address] Adelaida Carrion, OPERATOR [address] [place] [address] documented as of this encounter Procedures Procedure [...] documented as of this encounter Care Teams Charity Fundraiser Relationship Specialty Start Date End Date José Luis Roberts MD [address] [place] [address] PCP - General Family Medicine 05/18/23 01/26/24 Unallocated, Johan Sierra MD [facility] [place] [address] PCP - General Family Medicine 01/27/24 02/01/24 José Luis Roberts MD [address] [place] [address] PCP - General Family Medicine 02/02/24 Adelaida Carrion, BRIANA Referring Physician Nurse Practitioner 10/14/22 Miriam Suarez DO [address] [place], [place] [id number] Referring Physician Neurology 06/29/23 Mathew Parra LPN Licensed Practical Nurse Family Medicine 07/23/23 Diana De Leon LPN [address] [place] [address] Licensed Practical Nurse Family Medicine 12/18/2302/11 Adelaida Carrion NP [address] [place] [address] Nurse Practitioner Family Medicine 01/27/24 Bong Rosado, PA [address] [place] [address] Family Medicine 02/12/24 Juany Leggett PA [address] [place] [address] Physician Crane Crew Supervisor Neurology 07/26/24 documented as of this encounter
--- OUTSIDE RECORDS SUMMARY | 2024-10-17 10:55 | XMS_ITS | Encounter Summary ---
Author Organization [facility] Address [address] [place] [address] Care Team Providers Care Paint Coating Machine Operator Name Role Phone Miriam Suarez DO Unavailable [phone] Adelaida Carrion NP Unavailable [phone] José Luis Roberts MD Primary Care Provider [phone] Bong Rosado MA Unavailable [phone] Juany Leggett Unavailable Encounter Details Date Type Department Care Team (Late st Contact Info) Description 03/21/2024 Orders Only [facility] [address] [place] [address] Adelaida Carrion, BRIANA [address] [place] [address] Social History Tobacco Use Types Packs/Day Years [...] How often do you attend baptism or church serv ices? Never 08/16/2023 Do [...] 2 09/21/2023 [facility] [...] Procedure Visit [facility] [address] [place] [address] Adelaida Carrion NP [address] [place] [address] documented as of this encounter Procedures Procedure [...] * SCANNED LABS (03/21/2024 2:30 PM EST) [facility] LAB CHG PERFORMABLES Final Res ult * SCANNED LABS (03/21/2024 2:21 PM EST) Adelaida Carrion NP LAB CHG PERFORMABLES Final Resu lt * ECG 12 lead (03/21/2024 2:19 PM EST) Result [facility] ECG ORDERABLES Final Result * ECG 12 lead (03/21/2024 2:15 PM EST) Result [facility] ECG ORDERABLES Final Result * ECG 12 lead (03/21/2024 2:10 PM EST) Clayton Galvan MD ECG ORDERABLES Final Result * ECG 12 lead (03/21/2024 2:07 PM EST) Rochelle Keene MD ECG ORDERABLES Final Result * Complete echocardiogram dobutamine stress test (03/21/2024 2:03 PM EST) Anatomical Region Laterality Modality Ultrasound Adelaida Aichholz SYRUPER CV ECHO PROCEDURES Final Result documented in this encounter Visit Diagnoses Not on filedocumented in this encounter Additional Health Concerns Assessment Noted Time PHQ-9 Depression Total Score: 8 05/18/19 24 5:00 PM EST documented as of this encounter Care Teams Paint Coating Machine Operator Relationship Specialty Start Date End Date José Luis Roberts MD [address] [place] [address] PCP - General Family Medicine 02/02/24 Miriam Suarez DO [address] [place], [place] [id number] Referring Physician Neurology 06/29/23 Adelaida Carrion NP [address] [place] [address] Nurse Practitioner Family Medicine 01/27/24 Bong Rosado, [place] [address] [place] [address] Family Medicine 02/12/24 Juany Leggett PA [address] [place], [place] [id number] Physician Axle And Frame Mechanic Neurology 07/26/24 documented as of this encounter
--- OUTSIDE RECORDS SUMMARY | 2024-10-17 10:55 | XMS_ITS | Clinical Summary ---
Author Organization [facility] Healthcare Address [address] [place] [address] Care Team Providers Care Finish Carpenter Name Role Phone Miriam Suarez DO Unavailable [phone] Adelaida Carrion NP Unavailable [phone] José Luis Roberts MD Primary Care Provider Bong Rosado MA Unavailable [phone] Juany Leggett Unavailable Allergies Active Allergy [...] (BARIATRIC MULTIVITAMINS/IR ON PO) Pt taking OTC ([employer]) Active biotin 5 MG tablet Pt taking OTC ([employer]) Active Calcium Citrate-Vitamin D (CITRACAL + D PO) Pt taking OTC ([employer]) Active Magnesium 400 MG capsule Pt taking OTC([employer]) Active traZODone (Desyrel) 150 MG tablet Take [...] for muscle spasms 1-2 tablets 4 Active gabapentin (Neurontin) 300 MG capsuleIndicatio ns:Restless leg Take 1 capsule (300 mg) by mouth in the morning and 1 capsule (300 mg) before bedtime. Due now. 180 capsule 1 5 025 Active rOPINIRole (Requip) 3 MG tabletIndication s:Restless Leg Syndrome Take 1 tablet (3 mg) by mouth at bedtime 90 tablet 2 5 025 Active Cariprazine HCl (Vraylar) 4.5 MG capsule Take 4.5 mg by mouth Daily 5 Active LORazepam (Ativan) 1 MG tablet TAKE 1 TABLET BY MOUTH once a week NEEDED for acute or severe anxiety 5 Active amLODIPine (Norvasc) 10 MG tabletIndication s:Essential (primary) hypertension Take 1 tablet (10 mg) by mouth Daily 30 tablet 5 5 025 Active carvedilol (Coreg) 12.5 MG tabletIndication s:Essential (primary) hypertension Take 1 tablet (12.5 mg) by mouth in the morning and 1 tablet (12.5 mg) in the evening. Take with meals. 60 tablet 5 025 Active fexofenadine (Naida) 180 MG tabletIndication s:Allergic rhinitis, unspecified seasonality, unspecified trigger Take 1 tablet (180 mg) by mouth Daily 30 tablet 5 025 Active fluticasone (Flonase) 50 MCG/ACT nasal sprayIndications :Allergic rhinitis, unspecified Administer 2 sprays into each nostril Daily 16 g 5 025 Active losartan (Cozaar) 100 MG tabletIndication s:Essential (primary) hypertension Take 1 tablet (100 mg) by mouth Daily 30 tablet 5 Active omeprazole (PriLOSEC) [address] capsuleIndicatio ns:Gastro-esopha geal reflux disease without esophagitis Take 1 capsule (20 mg) by mouth in the morning. Take before meals. 30 capsule 5 Active spironolactone (Aldactone) 50 MG tabletIndication s:Bilateral lower extremity edema Take 1 tablet (50 mg) by mouth Daily 30 tablet 5 Active Vraylar 3 MG capsule 4 Discontin ued(Thera py completed ) diclofenac (Voltaren) 50 MG EC tablet 5 Discontin ued(Thera py completed ) amLODIPine (Norvasc) 10 MG tabletIndication s:Essential (primary) hypertension Take 1 tablet (10 mg) by mouth Daily 30 tablet 5 025 Discontin ued(Reord er) carvedilol (Coreg) 12.5 MG tabletIndication s:Essential (primary) hypertension Take 1 tablet (12.5 mg) by mouth in the morning and 1 tablet (12.5 mg) in the evening. Take with meals. 60 tablet 025 Discontin ued(Reord er) fluticasone (Flonase) 50 MCG/ACT nasal sprayIndications :Allergic rhinitis, unspecified Administer 2 sprays into each nostril Daily 16 g 5 025 Discontin ued(Reord er) losartan (Cozaar) 100 MG tabletIndication s:Essential (primary) hypertension Take 1 tablet (100 mg) [...] tablet 5 5 025 Discontin ued(Reord er) fexofenadine (Naida) 180 MG tabletIndication s:Allergic rhinitis, unspecified seasonality, unspecified trigger Take 1 tablet (180 mg) by mouth Daily 30 tablet 5 5 025 Discontin ued(Reord er) Active Problems Problem Noted Date Diagnosed Date Disorientation 10/13/2024 Assessment & Plan (10/13/2024 9:04 AM EDT): Sheridan to be related to not using PAP I have reviewed hospital and ER notes Sxs have resolved She is going to be having MRI out pt Continue fu with neuro Wear PAP URI, acute 06/14/2024 Chronic kidney disease, stage 3a 05/12/2024 Assessment & Plan (05/12/2024 6:40 AM EST): Monitor labs at minimum every year Body mass index (BMI) 45.0-49.9, adult Primary hypertension 03/16/2024 Assessment & Plan (10/13/2024 9:05 AM EDT): Please check blood pressure daily and record DASH diet Limit caffeine Take medication as directed Contact office if chest pain, pressure, dizziness, shortness of breath, swelling legs Recommend slow position changes Current meds: amlodipine, losartan, aldactone Assessment & Plan (08/16/2024 6:33 AM EDT): [...] the ECHO on file from 05/10/2019 at [facility], as well as ECHO report from Mara Sampson earlier this year Well woman exam with routine gynecological exam 02/16/2024 Assessment & Plan (02/16/2024 6:57 AM EST): THIN PREP, fu as per PAP results indicate Monthly BSE Calcium/vit D supplement unless chronic conditions indicate not Exercise as chronic conditions allow Needs flu shot 01/28/2024 AVM (arteriovenous malformation) brain ([facility]) 10/11/2023 Vascular malformation ([facility]) 10/11/2023 Brain lesion 10/11/2023 Carpal tunnel syndrome, [...] (09/21/2023 12:47 PM EDT): Reviewed notes from [facility] Former cigarette smoker 08/17/2023 Overview (08/19/2023): LDCT [...] (obstructive sleep apnea) 05/18/2023 Assessment & Plan (10/13/2024 9:04 AM EDT): You have a diagnosis of obstructive sleep [...] your machine and tubing[place]filters etc[place] [facility] [place] that manages your OSMANY: Daniela Assessment & Plan (05/12/2024 10:51 AM EST): [...] your machine and tubing/filters etc[place] [facility] that manages your OSMANY: Daniela Assessment [...] 05/18/2023 Degenerative cervical disc 05/18/2023 Osteoporosis 05/18/2023 Overview (10/13/2024): Last done 09/15/22 -1.0 Pre-diabetes 05/18/2023 Assessment & Plan (08/16/2024 1:00 PM EDT): Currently no meds A1c: 5.6% not on current therapy Anemia 05/18/2023 Vertigo, benign paroxysmal 05/18/2023 Slurred speech 05/18/2023 Assessment & Plan (09/21/2023 12:48 PM EDT): Continue with ST PTSD (post-traumatic stress disorder) 05/18/2023 Bipolar disorder with severe depression 05/18/19 Assessment & Plan (03/16/2024 6:33 AM EST): [...] Problem Noted Date Diagnosed Date Resolved Date Bronchitis 07/27/2024 10/13/2024 Assessment & Plan (08/16/2024 12:59 PM EDT): At last appt added trelegy 100's resolved Assessment & Plan (07/27/2024 12:48 PM EDT): Continue OTC mucus relief meds Will add trelegy for bronchitis 100's #2 samples lot [id number], exp 10/28 Fu if not better No s/s resp distress Acute cystitis without hematuria 01/28/2024 08/16/2024 Assessment [...] 1 twice a day #14 pills, Lot [id number], exp 06/29 Acute cough 07/14/2023 10/21/2023 Assessment & Plan (08/17/2023 10:06 AM EDT): resolved Influenza 07/14/2023 10/21/2023 Acute cystitis with hematuria 05/21/2023 10/21/2023 Right sided weakness 05/18/2023 024 Hemorrhoid 05/18/2023 03/16/2024 Overview (05/18/2023): int/external hemorrhoids Brain vascular malformation ([facility]) 05/18/2023 03/16/2024 Constipation 05/18/2023 08/17/2023 Colon [...] Encounters Date Type Department Care Team Description 10/13/2024 9:00 AM EDT Office Visit [facility] [address] [place] [address] Adelaida Carrion, SHREDDING FLOOR EQUIPMENT OPERATOR Disorientation (Primary Dx); Essential (primary) hypertension ; Allergic rhinitis, unspecified seasonality, unspecified trigger; Allergic rhinitis, unspecified; Gastro-esophageal reflux disease without esophagitis; Bilateral lower extremity edema; OSMANY (obstructive sleep apnea); Primary hypertension ; Osteoporosis, unspecified osteoporosis type, unspecified pathological fracture presence 10/13/2024 Orders Only [facility] [address] [place] [address] Adelaida Carrion, SHREDDING FLOOR EQUIPMENT OPERATOR 10/13/2024 Bamboo flowsheet [facility] [address] [place] [address] Adelaida Carrion, SHREDDING FLOOR EQUIPMENT OPERATOR 10/10/2024 Abstract [facility] [address] [place] [address] Adelaida Carrion, SHREDDING FLOOR EQUIPMENT OPERATOR 10/10/2024 Abstract [facility] [address] [place] [address] Adelaida Carrion, SHREDDING FLOOR EQUIPMENT OPERATOR 10/10/2024 Abstract [facility] [address] [place] [address] Adelaida Carrion, SHREDDING FLOOR EQUIPMENT OPERATOR 10/10/2024 Abstract [facility] [address] [place] [address] Adelaida Carrion, SHREDDING FLOOR EQUIPMENT OPERATOR 09/29/2024 Abstract [facility] [address] [place] [address] Adelaida Carrion, SHREDDING FLOOR EQUIPMENT OPERATOR 09/29/2024 Clinisync Result Encounter [facility] External Department Unsolicited Provider, Generic External Data 09/26/2024 Clinisync Result Encounter [facility] External Department Unsolicited Adelaida Carrion NP 09/26/2024 Clinisync Result Encounter [facility] External Department Unsolicited Adelaida Carrion NP 09/26/2024 Clinisync Result Encounter [facility] External Department Unsolicited Provider, Generic External Data 09/21/2024 Patient Outreach [facility] [place] [address] [place] [address] Bong Rosado MA 09/19/2024 Abstract [facility] [address] [place] [address] Adelaida Carrion NP 08/30/2024 Patient [facility] [facility] [address] [place] [address] Bong Rosado MA 08/16/2024 11:30 AM EDT Office Visit [facility] [address] [place] [address] Adelaida Carrion NP Primary hypertension (Primary Dx); Bronchitis; Bilateral lower extremity edema; Morbid (severe) obesity due to excess calories ([facility]); Pre-diabetes; Allergic rhinitis, unspecified seasonality, unspecified trigger; Encounter for screening mammogram for malignant neoplasm of breast; Former cigarette smoker 08/16/2024 Bamboo flowsheet [facility] [address] [address] Adelaida Carrion NP 08/08/2024 Abstract [facility] [address] [place] [address] José Luis Roberts MD 07/27/2024 11:30 AM EDT Office Visit [facility] [address] [place] [address] Adelaida Carrion NP Primary hypertension (Primary Dx); Morbid (severe) obesity due to excess calories ([facility]); Essential (primary) hypertension ; Allergic rhinitis, unspecified; Gastro-esophageal reflux disease without esophagitis; Bilateral lower extremity edema; Bronchitis 07/27/2024 Bamboo flowsheet [facility] [address] [place] [address] Adelaida Carrion NP 07/26/2024 11:00 AM EDT Office Visit [facility] [address] [place] [address] Juany Leggett PA SOMANY (obstructive sleep apnea) (Primary Dx); Restless leg; 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HCC); Concentration deficit 07/26/2024 Patient Outreach [facility] [address] [place] [address] Bong Rosado MA 07/26/2024 Bamboo flowsheet [facility] [address] [place] [address] Juany Leggett PA from Last 3 [...] How often do you attend yarsani or episcopalian serv ices? Never 08/16/2023 Do [...] Recorded Patient Health Questionnaire-2 Score 2 09/21/2023 [facility] - Occupational [...] (284 lb) 10/13/2024 8:42 AM EDT Height 162.6 cm (5' 4 ) 07/26/2024 10:48 AM EDT Body Mass Index 48.75 07/26/2024 10:48 AM EDT Plan of Treatment Upcoming Encounters Date Type Department Care Team (Late st Contact Info) Description 11/14/2024 10:30 AM EDT Procedure Visit [facility] [address] [place] [address] Adelaida Carrion NP [address] [place] [address] Health Maintenance Due Date Last Done Comments [...] Name Priority Date/Time Associated Diagnosis Comments XR DEXA AXIAL SKELETON* Routine 10/13/2024 9:27 AM EDT XR HIPS BILATERAL 2 VW WITH OR WITHOUT PELVIS 09/29/2024 11:[address] LUNG SCREENING LOW DOSE 09/26/2024 5:02 PM EDT MM TOMOSYNTHESIS SCREENING BI 09/26/2024 4:42 PM EDT XR SHOULDER RT MIN 2V 09/26/2024 1:35 PM EDT POCT GLYCOSYLATED HEMOGLOBIN (HGB A1C) Routine 08/16/2024 11:53 AM EDT Pre-diabetes from Last 3 Months Results * XR DEXA AXIAL SKELETON* (10/13/2024 9:27 AM EDT) Anatomical Region Laterality Modality Radiographic Nelda ging us Adelaida Carrion NP IMG XR PROCEDURES Final Result * XR hips bilateral 2 views (09/29/2024 11:23 AM EDT) Anatomical Region Laterality Modality Lower Extremities, Hip Bilateral Radiograp hic Imaging 09/29/2024 11:2 3 AM EDT Narrative 09/29/2024 11:26 AM EDT The [address] [address] XRay Report Signed Patient: NASIM BE MR#: [id number] : 1960 Acct:[id number] Age/Sex: 63 / F ADM Date: 09/29/24 Loc: RAD Attending Dr: Elizabeth Culp NP Ordering Physician: Elizabeth Culp NP Date of Service: 09/29/24 Procedure(s): XR hip BHUMI Accession Number(s): [id number] cc: Adelaida Carrion NP; Elizabeth Culp NP [address] [address] Patient Name: NASIM BE MRN: [id number] date: 1960 Sex: F Assigned Patient Location: RAD Current Patient Location: RAD Accession/Order Number: [id number] Exam Date: 09/29/2024 11:20 Report Date: 09/29/2024 [...] Bernal M.D. 09/29/2024 11:23 AM Dictation Location: [place] [address] Electronically authenticated by: [id number] Y Date: 09/29/2024 11:23 Dictated By: Edith Bernal M.D. Signed By: 09/29/24 1126 DD/ 1123 TD/TT: Shop Mechanic: Procedure Note Radiology, Radiologist, MD - 09/29/2024 The [place] [id number] XRay Report Signed Patient: NASIM BE LMR#: [id number] : 1960cct:[id number] Age/Sex: 63 / FADM Date: 09/29/24 Loc: RAD Attending Dr: Elizabeth Culp NP Ordering Physician: Elizabeth Culp NP Date of Service: 09/29/24 Procedure(s): XR hip BHUMI Accession Number(s): [id number] cc: Adelaida Carrion NP; Elizabeth Culp NP The [address] [address] Patient Name: NASIM BE MRN: [id number] date: 1960 Sex: F Assigned Patient Location: RAD Current Patient Location: RAD Accession/Order Number: [id number] Exam Date: 09/29/2024 11:20 Report Date: 09/29/2024 [...] Bernal M.D. 09/29/2024 11:23 AM Dictation Location: [place] [address] Electronically authenticated by: [id number] Y Date: 1:23 Dictated By: Edith Bernal M.D. Signed By:09/29/24 1126 DD/ 1123 TD/TT: Shop Mechanic: Generic External Data Provider IMG XR PROCEDURES Final Result * CT LUNG SCREENING LOW DOSE (09/26/2024 5:02 PM EDT) Anatomical Region Laterality Modality Other 09/26/2024 5:02 PM EDT Narrative 09/26/2024 5:04 [place] [address] [place] Scan Report Signed Patient: NASIM BE MR#: [id number] : 1960 Acct:[id number] Age/Sex: 63 / F ADM Date: 09/26/24 Loc: MAMMO Attending Dr: Adelaida Carrion NP Ordering Physician: Adelaida Carrion NP Date of Service: 09/26/24 Procedure(s): CT lung screening low-dose Accession Number(s): [id number] cc: Adelaida Carrion NP The [address] [address] Patient Name: NASIM BE MRN: [id number] date: 1960 Sex: F Assigned Patient Location: [facility] Current Patient Location: RAD Accession/Order Number: [id number] Exam Date: 09/26/2024 16:58 Report Date: 09/26/2024 [...] Guadalupe M.D. 09/26/2024 5:02 PM Dictation Location: [place] [address] Electronically authenticated by: [id number] Y Date: 09/26/2024 17:02 Dictated By: Shaheed Guadalupe M.D. Signed By: 09/26/24 170 DD/ 01 TD/TT: Shop Mechanic: Procedure Note Radiology, Radiologist, MD - 09/26/[address] [address] [address] Scan Report Signed Patient: NASIM BE LMR#: [id number] : 1960cct:[id number] Age/Sex: 63 / FADM Date: 09/26/24 Loc: MAMMO Attending Dr: Adelaida Carrion NP Ordering Physician: Adelaida Carrion NP Date of Service: 09/26/24 Procedure(s): CT lung screening low-dose Accession Number(s): [id number] cc: Adelaida Carrion NP The [address] [address] Patient Name: NASIM BE MRN: [id number] date: 1960 Sex: F Assigned Patient Location: MAMMO Current Patient Location: RAD Accession/Order Number: [id number] Exam Date: 09/26/2024 16:58 Report Date: 09/26/2024 [...] Guadalupe M.D. 09/26/2024 5:02 PM Dictation Location: [place] [address] Electronically authenticated by: [id number] Y Date: 7:02 Dictated By: Shaheed Guadalupe M.D. Signed By:09/26/241703 DD/ 01 TD/TT: Shop Mechanic: Adelaida Carrion NP [facility] Final Result * MM TOMOSYNTHESIS SCREENING BI (09/26/2024 4:42 PM EDT) Anatomical Region Laterality Modality Other 09/26/2024 4:42 PM EDT Narrative 09/26/2024 4:43 [place] [address] Mammography Report Signed Patient: NASIM BE MR#: [id number] : 1960 Acct:[id number] Age/Sex: 63 / F ADM Date: 09/26/24 Loc: MAMMO Attending Dr: Adelaida Carrion NP Ordering Physician: Adelaida Carrion NP Results: Date of Service: 09/26/24 Follow Up: Procedure(s): MM tomosynthesis screening BI Accession Number(s): [id number] cc: Adelaida Carrion NP Patient Name: NASIM BE MR#: [id number] : 1960 Exam Date: 09/26/2024 Ordering Doctor: [...] Treatments None Family Cancers None LOCATION: [facility] BREAST COMPOSITION: There are scattered areas [...] M.D. Signed By: 09/26/241642 DD/ 41 TD/TT: Shop Mechanic: Procedure Note Radiology, Radiologist, MD - 09/26/2024 [place] [address] Mammography Report Signed Patient: NASIM BE LMR#: [id number] : 1960cct:[id number] Age/Sex: 63 / FADM Date: 09/26/24 Loc: MAMMO Attending Dr: Adelaida Carrion NP Ordering Physician: Adelaida Carrion NPResults: Date of Service: 09/26/24Follow Up: Procedure(s): MM tomosynthesis screening BI Accession Number(s): [id number] cc: Adelaida Carrion NP Patient Name: NASIM BE MR#: [id number] : 1960 Exam Date: 09/26/2024 Ordering Doctor: [...] Treatments None Family Cancers None LOCATION: [facility] BREAST COMPOSITION: There are scattered areas [...] Dictated By: Olu Grover M.D. Signed By:09/26/24 164 DD/ 41 TD/TT: Shop Mechanic: us Adelaida Carrion NP [facility] Final Result * XR SHOULDER RT MIN 2V (09/26/2024 1:35 PM EDT) Anatomical Region Laterality Modality Other 09/26/2024 1:35 PM EDT Narrative 09/26/2024 1:38 [place] [address] XRay Report Signed Patient: NASIM BE MR#: [id number] : 1960 Acct:[id number] Age/Sex: 63 / F ADM Date: 09/26/24 Loc: RAD Attending Dr: Elizabeth Culp NP Ordering Physician: Elizabeth Culp NP Date of Service: 09/26/24 Procedure(s): XR shoulder RT min 2V Accession Number(s): [id number] cc: Adelaida Carrion NP; Elizabeth Culp NP The [address] [address] Patient Name: NASIM BE MRN: [id number] date: 1960 Sex: F Assigned Patient Location: [facility] Current Patient Location: [facility] Accession/Order Number: [id number] Exam Date: 09/26/2024 13:34 Report Date: 09/26/2024 [...] Guadalupe M.D. 09/26/2024 1:35 PM Dictation Location: [place] [address] Electronically authenticated by: [id number] Y Date: 09/26/2024 13:35 Dictated By: Shaheed Guadalupe M.D. Signed By: 09/26/24 1338 DD/ 34 TD/TT: Shop Mechanic: Procedure Note Radiology, Radiologist, MD - 09/26/2024 The [place] [id number] XRay Report Signed Patient: NASIM BE LMR#: [id number] : 1960cct:[id number] Age/Sex: 63 / FADM Date: 09/26/24 Loc: RAD Attending Dr: Elizabeth Culp NP Ordering Physician: Elizabeth Culp NP Date of Service: 09/26/24 Procedure(s): XR shoulder RT min 2V Accession Number(s): [id number] cc: Adelaida Carrion SHREDDING FLOOR EQUIPMENT OPERATOR; Elizabeth Culp NP [place] [address] Patient Name: NASIM BE MRN: [id number] date: 1960 Sex: F Assigned Patient Location: RAD Current Patient Location: [facility] Accession/Order Number: [id number] Exam Date: 09/26/2024 13:34 Report Date: 09/26/2024 [...] Guadalupe M.D. 09/26/2024 1:35 PM Dictation Location: [place] [address] Electronically authenticated by: [id number] Y Date: 3:35 Dictated By: Shaheed Guadalupe M.D. Signed By:09/26/24 1338 DD/ 34 TD/TT: Shop Mechanic: us Generic External Data Provider [facility] Final Result * POCT glycosylated hemoglobin (Hb A1C) docked device (08/16/2024 11:53 AM EDT) Hemoglobin A1C 5.6 Blood Venous blood specimen / Unknown 08/16/2024 11:53 AM EDT Adelaida Carrion NP POINT OF CARE TEST ENTER/EDIT O RDERABLES Final Result from Last 3 Months Insurance [employer] MEDICARE Advance Directives Documents on File Type Date Recorded Patient Glass Polisher Expl anation Power of Blade Balancer 03/16/2024 9:42 AM darian ellis of personal injury attorney Power of Blade Balancer 03/10/2024 3:12 PM POA Care Teams Finish Carpenter Relationship Specialty Start Date End Date José Luis Roberts MD [address] [place] [address] PCP - General Family Medicine 02/02/24 Miriam Suarez DO [address] [place] [address] Referring Physician Neurology 06/29/23 Adelaida Carrion NP [address] [place] [address] Nurse Practitioner Family Medicine 01/27/24 Bong Rosado, [place] [address] [place] [address] Family Medicine 02/12/24 Juany Leggett PA [address] [facility] [address] [place] [address] Physician Casino Gaming Worker Neurology 07/26/24
--- OUTSIDE RECORDS SUMMARY | 2024-10-17 10:55 | XMS_ITS | Encounter Summary ---
Author Organization [facility] Address [address] [place] [address] Care Team Providers Care Training Program Manager Name Role Phone Miriam Suarez Unavailable [phone] Adelaida Carrion NP Unavailable [phone] José Luis Roberts MD Primary Care Provider Bong Rosado MA Unavailable [phone] Juany Leggett Unavailable Encounter Details Date Type Department Care Team (Late st Contact Info) Description 10/10/2024 Abstract [facility] [address] [place] [address] Adelaida Carrion, BRIANA [address] [place] [address] Social History Tobacco Use Types [...] How often do you attend sikh or yarsani serv ices? Never 08/16/2023 Do [...] Recorded Patient Health Questionnaire-2 Score 2 09/21/2023 [facility] - [...] Visit [facility] [address] [place] [address] Adelaida Carrion NP [address] [place] [address] documented as of this encounter Visit Diagnoses Not on filedocumented in this encounter Additional Health Concerns Assessment Noted Time PHQ-9 Depression Total Score: 8 05/18/19 24 5:00 PM EST documented as of this encounter Care Teams Training Program Manager Relationship Specialty Start Date End Date José Luis Roberts MD [address] [place] [address] PCP - General Family Medicine 02/02/24 Miriam Suarez DO [address] [place] [address] Referring Physician Neurology 06/29/23 Adelaida Carrion NP [address] [place] [address] Nurse Practitioner Family Medicine 01/27/24 Bong Rosado MA [address] [place] [address] Family Medicine 02/12/24 Juany Leggett PA [address] [place] [address] Physician Boat Hand Neurology 07/26/24 documented as of this encounter
--- OUTSIDE RECORDS SUMMARY | 2024-10-17 10:55 | XMS_ITS | Encounter Summary ---
Author Organization [facility] Address [address] [place] [address] Care Team Providers Care Wind Energy Engineer Name Role Phone Miriam Suarez DO Unavailable [phone] Adelaida Carrion NP Unavailable [phone] José Luis Roberts MD Primary Care Provider Bong Rosado MA Unavailable [phone] Juany Leggett Unavailable Encounter Details Date Type Department Care Team (Late st Contact Info) Description 10/13/2024 Orders Only [facility] [address] [place] [address] Adelaida Carrion, BRIANA [address] [place] [address] Social History Tobacco Use Types Packs/Day Years [...] declined 08/16/2023 How often do you attend congregation or hoahaoism serv ices? Never 08/16/2023 Do you belong to any clubs o r organizations such as congregation groups, unions, fraternal or athletic groups, or [...] Score 2 09/21/2023 [facility] - Occupational Stress Questionnaire [...] Visit [facility] [address] [place] [address] Adelaida Carrion NP [address] [place] [address] documented as of this encounter Procedures Procedure Name Priority Date/Time Associated Diagnosis Comments XR DEXA AXIAL SKELETON* Routine 10/13/2024 9:27 AM EDT documented in this encounter Results * XR DEXA AXIAL SKELETON* (10/13/2024 9:27 AM EDT) Anatomical Region Laterality Modality Radiographic Nelda ging Adelaida Carrion PHYSICIAN SUPPORT COORDINATOR IMG XR PROCEDURES Final Result documented in this encounter Visit Diagnoses Not on filedocumented in this encounter Additional Health Concerns Assessment Noted Time PHQ-9 Depression Total Score: 8 05/18/19 24 5:00 PM EST documented as of this encounter Care Teams Wind Energy Engineer Relationship Specialty Start Date End Date José Luis Roberts MD [address] [place] [address] PCP - General Family Medicine 02/02/24 Miriam Suarez DO [address] [place] [address] Referring Physician Neurology 06/29/23 Adelaida Carrion NP [address] [place] [address] Nurse Practitioner Family Medicine 01/27/24 Bong Rosado MA [address] [place] [address] Family Medicine 02/12/24 Juany Leggett PA [address] [place] [address] Physician Panel Beater Neurology 07/26/24 documented as of this encounter
--- OUTSIDE RECORDS SUMMARY | 2024-10-17 10:55 | XMS_ITS | Encounter Summary ---
Author Organization [facility] Address [address] [place] [address] Care Team Providers Care Sports Internship Name Role Phone Miriam Suarez DO Unavailable [phone] Adelaida Carrion NP Unavailable [phone] José Luis Roberts MD Primary Care Provider [phone] Bong Rosado MA Unavailable [phone] Juany Lgegett Unavailable Encounter Details Date Type Department Care Team (Late st Contact Info) Description 03/17/2024 Orders Only [facility] [address] [place] [address] Adelaida Carrion, BRIANA [address] [place] [address] Social History Tobacco Use Types Packs/Day Years [...] How often do you attend yazidi or anabaptism serv ices? Never 08/16/2023 Do [...] Score 2 09/21/2023 [facility] - Occupational [...] Visit [facility] [address] [place] [address] Adelaida Carrion NP [address] [place] [address] documented as of this encounter Procedures Procedure [...] documented as of this encounter Care Teams Sports Internship Relationship Specialty Start Date End Date José Luis Roberts MD [address] [place] [address] PCP - General Family Medicine 02/02/24 Miriam Suarez DO [address] [place] [address] Referring Physician Neurology 06/29/23 Adelaida Carrion NP [address] [place] [address] Nurse Practitioner Family Medicine 01/27/24 Bong Rosado MA [address] [place] [address] Family Medicine 02/12/24 Juany Leggett PA [address] [place] [address] Physician Hvac Service Tech Neurology 07/26/24 documented as of this encounter
--- OUTSIDE RECORDS SUMMARY | 2024-10-17 10:55 | XMS_ITS | Encounter Summary ---
Author Organization [facility] Address [address] [place] [address] Care Team Providers Care Finishing Machine Tender Name Role Phone Miriam Suarez Unavailable [phone] Adelaida Carrion NP Unavailable [phone] José Luis Rboerts MD Primary Care Provider [phone] Bong Rosado MA Unavailable [phone] Juany Leggett Unavailable Encounter Details Date Type Department Care Team (Late st Contact Info) Description 10/10/2024 Abstract [facility] [address] [place] [address] Adelaida Carrion, BRIANA [address] [place] [address] Social History Tobacco Use Types [...] How often do you attend yarsanism or yazidism serv ices? Never 08/16/2023 Do [...] [facility]at ional Health - [...] Visit [facility] [address] [place] [address] Adelaida Carrion NP [address] [place] [address] documented as of this encounter Visit Diagnoses Not on filedocumented in this encounter Additional Health Concerns Assessment Noted Time PHQ-9 Depression Total Score: 8 05/18/19 24 5:00 PM EST documented as of this encounter Care Teams Finishing Machine Tender Relationship Specialty Start Date End Date José Luis Roberts MD [address] [place] [address] PCP - General Family Medicine 02/02/24 Miriam Suarez DO [address] [place] [address] Referring Physician Neurology 06/29/23 Adelaida Carrion NP [address] [place] [address] Nurse Practitioner Family Medicine 01/27/24 Bong Rosado MA [address] [place] [address] Family Medicine 02/12/24 Juany Leggett PA [address] [place] [address] Physician Product Safety Specialist Neurology 07/26/24 documented as of this encounter
--- OUTSIDE RECORDS SUMMARY | 2024-10-17 10:55 | XMS_ITS | Encounter Summary ---
Author Organization [facility] Address [address] [place] [address] Care Team Providers Care Aircraft Navigator Name Role Phone Miriam Suarez Unavailable [phone] Adelaida Carrion NP Unavailable [phone] José Luis Roberts MD Primary Care Provider Bong Rosado MA Unavailable [phone] Juany Leggett Unavailable Encounter Details Date Type Department Care Team (Late st Contact Info) Description 09/29/2024 Abstract [facility] [address] [place] [address] Adelaida Carrion, BRIANA [address] [place] [address] Social History Tobacco Use Types [...] How often do you attend sikhism or temple serv ices? Never 08/16/2023 Do [...] Score 2 09/21/2023 [facility] ional Health - Occupational Stress [...] Visit [facility] [address] [place] [address] Adelaida Carrion NP [address] [place] [address] documented as of this encounter Visit Diagnoses Not on filedocumented in this encounter Additional Health Concerns Assessment Noted Time PHQ-9 Depression Total Score: 8 05/18/19 24 5:00 PM EST documented as of this encounter Care Teams Aircraft Navigator Relationship Specialty Start Date End Date José Luis Roberts MD [address] [place] [address] PCP - General Family Medicine 02/02/24 Miriam Suarez DO [address] [place] [address] Referring Physician Neurology 06/29/23 Adelaida Carrion NP [address] [place] [address] Nurse Practitioner Family Medicine 01/27/24 Bong Rosado MA [address] [place] [address] Family Medicine 02/12/24 Juany Leggett PA [address] [place] [address] Physician Cement Truck Loader Neurology 07/26/24 documented as of this encounter
--- OUTSIDE RECORDS SUMMARY | 2024-10-17 10:56 | XMS_ITS | Encounter Summary ---
Author Organization [facility] Address [address] [place] [address] Care Team Providers Care Job Lithographer Name Role Phone Adelaida Carrion NP Unavailable [phone] José Luis Roberts MD Primary Care Provider [phone] Joés Luis Roberts MD Primary Care Provider [phone] Miriam Suarez DO Unavailable [phone] [place], Ardana SAMPLER OVENS Unavailable Unavailable Fran Parradana SAMPLER OVENS Unavailable Unavailable Diana De Leon SAMPLER OVENS Unavailable Unallocated, Noms Provider Primary Care Provi kellee Adelaida Carrion RETAIL SUPPORT SPECIALIST Unavailable [phone] José Luis Roberts MD Primary Care Provider [phone] Bong Rosado MA Unavailable [phone] Juany Leggett Unavailable Encounter Details Date Type Department Care Team (Late st Contact Info) Description 01/09/2023 Abstract [facility] [address] [place] [address] Travon Hines PA [address] [place] [address] Social History Tobacco Use Types Packs/Day Years [...] Description 11/14/2024 10:30 AM EDT Procedure Visit [facility] [address] [place] [address] Adelaida Carrion, BRIANA [address] [place] [address] documented as of this encounter Visit Diagnoses Not on filedocumented in this encounter Care Teams Job Lithographer Relationship Specialty Start Date End Date José Luis Roberts MD PCP - General Family Medicine 10/14/22 05/17/23 José Luis Roberts MD [address] [place] [address] PCP - General Family Medicine 05/18/23 01/26/24 Unallocated, Johan Sierra MD [address] [place] [address] PCP - General Family Medicine 01/27/24 02/01/24 José Luis Roberts MD [address] [place] [address] PCP - General Family Medicine 02/02/24 Adelaida Carrion NP Referring Physician Nurse Practitioner 10/14/22 Miriam Suarez DO [address] [place], [place] [address] Referring Physician Neurology 06/29/23 Mathew Parra LPN Registered Nurse Family Medicine 07/07/23 07/08/23 Mathew Parra LPN Licensed Practical Nurse Family Medicine 07/23/23 Diana De Leon LPN [address] [place] [address] Licensed Practical Nurse Family Medicine 12/18/2302/11 Adelaida Carrion NP [address] [place] [address] Nurse Practitioner Family Medicine 01/27/24 Bong Rosado, [place] [address] [place] [address] Family Medicine 02/12/24 Juany Leggett PA [address] [place] [address] Physician Occupational Therapy Asst Neurology 07/26/24 documented as of this encounter
--- OUTSIDE RECORDS SUMMARY | 2024-10-17 10:56 | XMS_ITS | Clinical Summary ---
Author Organization [facility] Address [address] [place] [address] Care Team Providers Care Flight Physician Name Role Phone Unavailable Primary Care Provider [...]
--- OUTSIDE RECORDS SUMMARY | 2024-10-17 10:56 | XMS_ITS | Encounter Summary ---
Author Organization [facility] Address [address] [place] [address] Care Team Providers Care Jet Worker Name Role Phone Adelaida Carrion NP Unavailable [phone] José Luis Roberts MD Primary Care Provider José Luis Roberts MD Primary Care Provider [phone] Miriam Suarez DO Unavailable [phone] [place], Ardana PROCESSES CHEMICAL DESIGN ENGINEER Unavailable Unavailable Aida Ardana PROCESSES CHEMICAL DESIGN ENGINEER Unavailable Unavailable Diana De Leon PROCESSES CHEMICAL DESIGN ENGINEER Unavailable Unallocated, Noms Provider Primary Care Provi kellee Adelaida Carrion NP Unavailable [phone] José Luis Roberts MD Primary Care Provider [phone] Bong Rosado MA Unavailable [phone] Juany Leggett Unavailable Encounter Details Date Type Department Care Team (Late st Contact Info) Description 04/09/2023 Abstract [facility] [address] [place] [address] Adelaida Carrion NP [address] [place] [address] Social History Tobacco Use Types Packs/Day Years [...] EDT Procedure Visit JOHAN MANDUJANO [address] [place] [address] Adelaida Carrion, BRIANA [address] [place] [address] documented as of this encounter Visit Diagnoses Not on filedocumented in this encounter Care Teams Jet Worker Relationship Specialty Start Date End Date José Luis Roberts MD PCP - General Family Medicine 10/14/22 05/17/23 José Luis Roberts MD [address] [place] [address] PCP - General Family Medicine 05/18/23 01/26/24 Unallocated, Johan Sierra MD [address] [place] [address] PCP - General Family Medicine 01/27/24 02/01/24 José Luis Roberts MD [address] [place] [address] PCP - General Family Medicine 02/02/24 Adelaida Carrion NP Referring Physician Nurse Practitioner 10/14/22 Miriam Suarez DO [address] [place], [place] [address] Referring Physician Neurology 06/29/23 Mathew Parra LPN Registered Nurse Family Medicine 07/07/23 07/08/23 Mathew Parra LPN Licensed Practical Nurse Family Medicine 07/23/23 Diana De Leon LPN [address] [place] [address] Licensed Practical Nurse Family Medicine 12/18/2302/11 Adelaida Carrion NP [address] [address] Nurse Practitioner Family Medicine 01/27/24 Bong Rosado MA [address] [place] [address] Family Medicine 02/12/24 Juany Leggett PA [address] [place] [address] Physician Tape Recorder Mechanic Neurology 07/26/24 documented as of this encounter
--- OUTSIDE RECORDS SUMMARY | 2024-10-17 10:56 | XMS_ITS | Encounter Summary ---
Author Organization [facility] Address [address] [place] [address] Care Team Providers Care Anchor Tack Puller Name Role Phone Adelaida Carrion NP Unavailable [phone] José Luis Roberts MD Primary Care Provider [phone] Miriam Suarez DO Unavailable [phone] Mathew Parra FLUTE TEACHER Unavailable Unavailable Diana De Leon LPN Unavailable Unallocated, Noms Provider Primary Care Provi kellee Adelaida Carrion NP Unavailable [phone] José Luis Roberts MD Primary Care Provider [phone] Bong Rosado MA Unavailable [phone] Juany Leggett Unavailable Encounter Details Date [...] How often do you attend methodist or jainism serv ices? Never 08/16/2023 Do [...] Recorded Patient Health Questionnaire-2 Score 2 09/21/2023 [facility] [place] of Occupat ional Health - Occupational Stress [...] EDT Procedure Visit [facility] [address] [place] [address] Adelaida Carrion NP [address] [place] [address] documented as of this encounter Procedures Procedure Name Priority Date/Time Associated Diagnosis Comments XR THORACIC SPINE 2 VIEWS 12/02/2023 2:53 PM EDT documented in this encounter Results * XR thoracic spine 2 views (12/02/2023 2:53 PM EDT) Anatomical Region Laterality Modality Spine, T-spine Radiographic Nelda ging 12/02/2023 2:53 PM EDT Narrative 12/02/2023 2:55 PM EDT [place] [id number] XRay Report Signed Patient: NASIM INGRAM MR#: [id number] : 1960 Acct:[id number] Age/Sex: 62 / F ADM Date: 12/02/23 Loc: RAD Attending Dr: Elizabeth Cano SHEET METAL HELPER Ordering Physician: Elizabeth Cano NP Date of Service: 12/02/23 Procedure(s): XR thoracic spine 2V Accession Number(s): [id number] cc: Adelaida Carrion SHEET METAL HELPER; Elizabeht Cano NP [address] [address] Patient Name: NASIM INGRAM MRN: [id number] date: 1960 Sex: F Assigned Patient Location: [facility] Current Patient Location: [facility] Accession/Order Number: [id number] Exam Date: 12/02/2023 14:10 Report Date: 12/02/2023 [...] Signed By: 12/02/23 1455 DD/ 1453 TD/TT: Certified Medical Aide: Procedure Note Radiology, Radiologist, MD - 12/02/2023 [place] [address] XRay Report Signed Patient: NASIM INGRAM LMR#: [id number] : 1960cct:[id number] Age/Sex: 62 / FADM Date: 12/02/23 Loc: [facility] Attending Dr: Elizabeth Cano NP Ordering Physician: Elizabeth Cano NP Date of Service: 12/02/23 Procedure(s): XR thoracic spine 2V Accession Number(s): [id number] cc: Adelaida Carrion NP; Elizabeth Cano NP The [address] [address] Patient Name: NASIM INGRAM MRN: [id number] date: 1960 Sex: F Assigned Patient Location: [facility] Current Patient Location: [facility] Accession/Order Number: [id number] Exam Date: 12/02/2023 14:10 Report Date: 12/02/2023 [...] M.D. Signed By:12/02/23 1455 DD/ 1453 TD/TT: Certified Medical Aide: us Generic External Data Provider IMG XR PROCEDURES Final Result documented in this encounter Visit Diagnoses Not on filedocumented in this encounter Additional Health Concerns Assessment Noted Time PHQ-9 Depression Total Score: 8 05/18/19 24 5:00 PM EST documented as of this encounter Care Teams Anchor Tack Puller Relationship Specialty Start Date End Date José Luis Roberts MD [address] [place] [address] PCP - General Family Medicine 05/18/23 01/26/24 Unallocated, Noms ProviderMD [address] [place] [address] PCP - General Family Medicine 01/27/24 02/01/24 José Luis Roberts MD [address] [place] [address] PCP - General Family Medicine 02/02/24 Adelaida Carrion NP Referring Physician Nurse Practitioner 10/14/22 Miriam Suarez DO [address] [place] [address] Referring Physician Neurology 06/29/23 Mathew Parra LPN Licensed Practical Nurse Family Medicine 07/23/23 Diana De Leon LPN [address] [place] [address] Licensed Practical Nurse Family Medicine 12/18/2302/11 Adelaida Carrion NP [address] [place] [address] Nurse Practitioner Family Medicine 01/27/24 Bong Rosado, [place] [address] [place] [address] Family Medicine 02/12/24 Juany Leggett PA [address] [place], [place] [address] Physician Security Trainer Neurology 07/26/24 documented as of this encounter
--- OUTSIDE RECORDS SUMMARY | 2024-10-17 10:56 | XMS_ITS | Encounter Summary ---
Author Organization [facility] Address [address] [place] [address] Care Team Providers Care Cardiopulmonary Technologist Name Role Phone Adelaida Carrion NP Unavailable [phone] José Luis oRberts MD Primary Care Provider Miriam Suarez DO Unavailable [phone] Mathew Parra ELECTRON MICROPROBE OPERATOR Unavailable Unavailable Mathew Parra ELECTRON MICROPROBE OPERATOR Unavailable Unavailable Diana De Leon ELECTRON MICROPROBE OPERATOR Unavailable Unallocated, Noms Provider Primary Care Provi kellee Adelaida Carrion NP Unavailable [phone] José Luis Roberts MD Primary Care Provider [phone] Bong Rosado MA Unavailable [phone] Juany Leggett Unavailable Encounter Details Date Type Department Care Team (Late st Contact Info) Description 05/19/2023 Clinisync Result Encounter [facility] External Department Unsolicited Adelaida Carrion NP [address] [place] [address] Social History Tobacco Use Types Packs/Day Years [...] Never 05/18/2023 How often do you attend gnosticism or mosque serv ices? Never 05/18/2023 Do you belong [...] Recorded Patient Health Questionnaire-2 Score 1 05/18/2023 [facility] - Occupational Stress Questionnaire [...] slept in a usp (including now)? No 05/18/2023 Comments Unknown Sex [...] Visit [facility] [address] [place] [address] Adelaida Carrion NP [address] [place] [address] documented as of this encounter Procedures Procedure Name Priority Date/Time Associated Diagnosis Comments XR HIP LT MIN 2V 05/19/2023 9:31 AM EST documented in this encounter Results * XR HIP LT MIN 2V (05/19/2023 9:31 AM EST) Anatomical Region Laterality Modality Other 05/19/2023 9:31 AM EST Narrative 05/19/2023 9:34 AM EST [address] [address] XRay Report Signed Patient: NASIM BE MR#: [id number] : 1960 Acct:[id number] Age/Sex: 62 / F ADM Date: 05/19/23 Loc: RAD Attending Dr: Adelaida Carrion AUTO RENTAL SUPERVISOR Ordering Physician: Adelaida Carrion NP Date of Service: 05/19/23 Procedure(s): XR hip LT min 2V Accession Number(s): [id number] cc: Adelaida Carrion NP [address] [address] Patient Name: NASIM BE MRN: [id number] date: 1960 Sex: F Assigned Patient Location: [facility] Current Patient Location: RAD Accession/Order Number: [id number] Exam Date: 05/19/2023 07:50 Report Date: 05/19/2023 [...] M.D. Signed By: 05/19/2334 DD/ 0 TD/TT: Cost And Risk Analysis Manager: Procedure Note Radiology, Radiologist, - 05/19/2023 [place] [address] XRay Report Signed Patient: NASIM BE LMR#: [id number] : 1960cct:[id number] Age/Sex: 62 / FADM Date: 05/19/23 Loc: RAD Attending Dr: Adelaida Carrion AUTO RENTAL SUPERVISOR Ordering Physician: Adelaida Carrion NP Date of Service: 05/19/23 Procedure(s): XR hip LT min 2V Accession Number(s): [id number] cc: Adelaida Carrion NP The [place] [address] Patient Name: NASIM BE MRN: [id number] date: 1960 Sex: F Assigned Patient Location: [facility] Current Patient Location: [facility] Accession/Order Number: [id number] Exam Date: 05/19/2023 07:50 Report Date: 05/19/2023 [...] Maciel M.D. Signed By:05/19/2334 DD/ 0 TD/TT: Cost And Risk Analysis Manager: us Adelaida Carrion NP [facility] Final Result documented in this encounter Visit Diagnoses Not on filedocumented in this encounter Additional Health Concerns Assessment Noted Time PHQ-9 Depression Total Score: 8 05/18/19 24 5:00 PM EST documented as of this encounter Care Teams Cardiopulmonary Technologist Relationship Specialty Start Date End Date José Luis Roberts MD [address] [place] [address] PCP - General Family Medicine 05/18/23 01/26/24 Unallocated, Johan Sierra MD [address] [place] [address] PCP - General Family Medicine 01/27/24 02/01/24 José Luis Roberts MD [address] [place] [address] PCP - General Family Medicine 02/02/24 Adelaida Carrion NP Referring Physician Nurse Practitioner 10/14/22 Miriam Suarez DO [address] [place] [address] Referring Physician Neurology 06/29/23 Mathew Parra LPN Registered Nurse Family Medicine 07/07/23 07/08/23 Mathew Parra LPN Licensed Practical Nurse Family Medicine 07/23/23 Diana [place] LPN [address] [place] [address] Licensed Practical Nurse Family Medicine 12/18/2302/11 Adelaida Carrion NP [address] [place] [place] [address] Nurse Practitioner Family Medicine 01/27/24 Bong Rosado MA [address] [place] [address] Family Medicine 02/12/24 Juany Leggett PA [address] [place] [address] Physician Autopsy Pathologist Neurology 07/26/24 documented as of this encounter
--- OUTSIDE RECORDS SUMMARY | 2024-10-17 10:56 | XMS_ITS | Clinical Summary ---
Author Organization [facility] Private [facility] App Sys tem Address [facility] [id number] [address] [place] [address] Care Team Providers Care Telemetry Tech Name Role Phone Adelaida Carrion APRN-CUTTING DEPARTMENT SUPERVISOR Primary Care Provider Medications gabapentin (NEURONTIN) 600 mg tabletIndicatio ns:Neuropathy 1 tablet po in the am (600mg) 1 tablet po at noon (600mg) an 2 tablets po at bedtime (1200mg) 120 tablet 5 05/04/2018 Active Encounters Date Type Department Care Team Description 10/08/2024 12:51 PM EDT - 10/09/2024 6:17 PM EDT Emergency [facility] [address] [place] [address] Discharge Disposition: Telemedicine Discharge from [...] 02/19/2022 Medical Devices Not on file Insurance [employer] MEDICARE Care Teams Telemetry Tech Relationship Specialty Start Date End Date Adelaida Carrion, CHAR PULLER-CUTTING DEPARTMENT SUPERVISOR PCP - General Nurse Practitioner 12/10/16
--- OUTSIDE RECORDS SUMMARY | 2024-10-17 10:56 | XMS_ITS | Encounter Summary ---
Author Organization [facility] Address [address] [place] [address] Care Team Providers Care Water Quality Tester Name Role Phone Adelaida Carrion NP Unavailable [phone] José Luis Roberts MD Primary Care Provider [phone] José Luis Roberts MD Primary Care Provider [phone] Miriam Suarez DO Unavailable [phone] Marquez, Ardana CLINICAL ACADEMIC ALLERGIST Unavailable Unavailable Aida Ardana CLINICAL ACADEMIC ALLERGIST Unavailable Unavailable Diana De Leon CLINICAL ACADEMIC ALLERGIST Unavailable Unallocated, Noms Provider Primary Care Provi kellee Adelaida Carrion PILLOWCASE TURNER Unavailable [phone] José Luis Roberts MD Primary Care Provider [phone] Bong Rosado MA Unavailable [phone] Juany Leggett Unavailable Encounter Details Date Type Department Care Team (Late st Contact Info) Description 04/08/2023 Orders Only [facility] [address] [place] [address] Adelaida Carrion PILLOWCASE TURNER [address] [place] [address] Social History Tobacco Use Types Packs/Day Years [...] Procedure Visit [facility] [address] [place] [address] Adelaida Carrion NP [address] [place] [address] documented as of this encounter Procedures Procedure Name Priority Date/Time Associated Diagnosis Comments MISCELLANEOUS LAB TEST Routine 03/23/2023 2:45 PM EST documented in this encounter Results * - Miscellaneous Test (03/23/2023 2:45 PM EST) Adelaida Carrion PILLOWCASE TURNER LAB BLOOD ORDERABLES Final Resu lt documented in this encounter Visit Diagnoses Not on filedocumented in this encounter Care Teams Water Quality Tester Relationship Specialty Start Date End Date José Luis Roberts MD PCP - General Family Medicine 10/14/22 05/17/23 José Luis Roberts MD [address] [place] [address] PCP - General Family Medicine 05/18/23 01/26/24 Unallocated, Johan Sierra MD [address] [place] [address] PCP - General Family Medicine 01/27/24 02/01/24 José Luis Roberts MD [address] [place] [address] PCP - General Family Medicine 02/02/24 Adelaida Carrion NP Referring Physician Nurse Practitioner 10/14/22 Miriam Suarez DO [address] [place], [place] [address] Referring Physician Neurology 06/29/23 Mathew Parra LPN Registered Nurse Family Medicine 07/07/23 07/08/23 Mathew Parra LPN Licensed Practical Nurse Family Medicine 07/23/23 Diana De Leon LPN [address] [place] [address] Licensed Practical Nurse Family Medicine 12/18/2302/11 Adelaida Carrion NP [address] [place] [address] Nurse Practitioner Family Medicine 01/27/24 Bong Rosado, [place] [address] [place] [address] Family Medicine 02/12/24 Juany Leggett PA [address] [place], [place] [address] Physician Infantryman Neurology 07/26/24 documented as of this encounter
--- OUTSIDE RECORDS SUMMARY | 2024-10-17 10:56 | XMS_ITS | Encounter Summary ---
Author Organization [facility] Address [address] [place] [address] Care Team Providers Care Gas Distribution Plant Operator Name Role Phone Adelaida Carrion NP Unavailable [phone] José Luis Roberts MD Primary Care Provider [phone] Miriam Suarez DO Unavailable [phone] Mathew Parra COMIC BOOK ARTIST Unavailable Unavailable Diana De Leon LPN Unavailable Unallocated, Noms Provider Primary Care Provi kellee Adelaida Carrion NP Unavailable [phone] José Luis Roberts MD Primary Care Provider [phone] Bong Rosado MA Unavailable [phone] Juany Leggett Unavailable Encounter Details Date Type Department Care Team (Late st Contact Info) Description 12/02/2023 Orders Only [facility] [address] [place] [address] Bhakti Culp NP [address] [place] [address] Social History Tobacco Use Types [...] often do you attend oriental orthodox or buddhism serv ices? Never 08/16/2023 Do [...] Recorded Patient Health Questionnaire-2 Score 2 09/21/2023 [facility] of Occupat ional Health [...] 10:30 AM EDT Procedure Visit [facility] [address] [place] [address] Adelaida Carrion NP [address] [place] [address] documented as of this encounter Procedures Procedure [...] documented as of this encounter Care Teams Gas Distribution Plant Operator Relationship Specialty Start Date End Date José Luis Roberts MD [address] [place] [address] PCP - General Family Medicine 05/18/23 01/26/24 Unallocated, Johan Sierra MD [address] [place] [address] PCP - General Family Medicine 01/27/24 02/01/24 José Luis Roberts MD [address] [place] [address] PCP - General Family Medicine 02/02/24 Adelaida Carrion NP Referring Physician Nurse Practitioner 10/14/22 Miriam Suarez DO [address] [place], [place] [address] Referring Physician Neurology 06/29/23 Mathew Parra LPN Licensed Practical Nurse Family Medicine 07/23/23 Diana De Leon LPN [address] [place] [address] Licensed Practical Nurse Family Medicine 12/18/2302/11 Adelaida Carrion NP [address] [place] [address] Nurse Practitioner Family Medicine 01/27/24 Bong Rosado MA [address] [place] [address] Family Medicine 02/12/24 Juany Leggett PA [address] [place] [address] Physician Category Director Neurology 07/26/24 documented as of this encounter
--- OUTSIDE RECORDS SUMMARY | 2024-10-17 10:56 | XMS_ITS | Encounter Summary ---
Author Organization [facility] Address [address] [place] [address] Care Team Providers Care Yarn Wrapper Name Role Phone Adelaida Carrion NP Unavailable [phone] José Luis Roberts MD Primary Care Provider [phone] José Luis Roberts MD Primary Care Provider [phone] Miriam Suarez DO Unavailable [phone] Cyclone, Ardana PANTOGRAPH MACHINE OPERATOR Unavailable Unavailable Fran Parradana PANTOGRAPH MACHINE OPERATOR Unavailable Unavailable Diana De Leon PANTOGRAPH MACHINE OPERATOR Unavailable Unallocated, Noms Provider Primary Care Provi kellee Adelaida Carrion NP Unavailable [phone] José Luis Roberts MD Primary Care Provider [phone] Bong Rosado MA Unavailable [phone] Juany Leggett Unavailable Encounter Details Date Type Department Care Team (Late st Contact Info) Description 03/06/2023 Clinisync Result Encounter [facility] External Department Unsolicited Ashleigh Hines, MAUREEN [address] [place] [address] Social History Tobacco Use Types [...] Procedure Visit [facility] [address] [place] [address] Adelaida Carrion NP [address] [place] [address] documented as of this encounter Procedures Procedure Name Priority Date/Time Associated Diagnosis Comments KNEE RT WO CON 03/06/2023 3:5 5 PM EST documented in this encounter Results * MR KNEE RT WO CON (03/06/2023 3:55 PM EST) Anatomical Region Laterality Modality Other 03/06/2023 3:55 PM EST Narrative 03/06/2023 3:55 PM EST [address] [address] Magnetic Resonance Report Signed Patient: NASIM BE MR#: [id number] : 1960 Acct:[id number] Age/Sex: 62 / F ADM Date: 03/06/23 Loc: MRI Attending Dr: Ashleigh REDDY Ordering Physician: Ashleigh Hines Date of Service: 03/06/23 Procedure(s): knee RT wo con Accession Number(s): [id number] cc: Adelaida Carrion BOILERHOUSE MECHANIC; Ashleigh Hines The [address] [address] Patient Name: NASIM BE MRN: [id number] date: 1960 Sex: F Assigned Patient Location: MRI Current Patient Location: MRI Accession/Order Number: [id number] Exam Date: 03/06/2023 09:30 Report Date: 03/06/2023 [...] Signed By: 03/06/23 1558 DD/ 1555 TD/TT: Information Systems Manager: Procedure Note Radiology, Radiologist, - 03/06/2023 [place] [address] Magnetic Resonance Report Signed Patient: NASIM BE LMR#: [id number] : 1960cct:[id number] Age/Sex: 62 / FADM Date: 03/06/23 Loc: MRI Attending Dr: Ashlegih REDDY Ordering Physician: Ashleigh iHnes Date of Service: 03/06/23 Procedure(s): MR knee RT wo con Accession Number(s): [id number] cc: Adelaida Carrion NP; Ashleigh Hines [place] [id number] Patient Name: NASIM BE MRN: [id number] date: 1960 Sex: F Assigned Patient Location: MRI Current Patient Location: MRI Accession/Order Number: [id number] Exam Date: 03/06/2023 09:30 Report Date: 03/06/2023 [...] M.D. Signed By:03/06/23 1558 DD/ 1555 TD/TT: Information Systems Manager: us Ashleigh REDDY [facility] Final Resul t documented in this encounter Visit Diagnoses Not on filedocumented in this encounter Care Teams Yarn Wrapper Relationship Specialty Start Date End Date José Luis Roberts MD PCP - General Family Medicine 10/14/22 05/17/23 José Luis Roberts MD [address] [place] [address] PCP - General Family Medicine 05/18/23 01/26/24 Unallocated, Noms MD Mariela [address] [place] [address] PCP - General Family Medicine 01/27/24 02/01/24 José Luis Roberts MD [address] [place] [address] PCP - General Family Medicine 02/02/24 Adelaida Carrion NP Referring Physician Nurse Practitioner 10/14/22 Miriam Suarez DO [address] [place] [address] Referring Physician Neurology 06/29/23 Mathew Parra LPN Registered Nurse Family Medicine 07/07/23 07/08/23 Mathew Parra LPN Licensed Practical Nurse Family Medicine 07/23/23 Diana De Leon LPN [address] [place], [place] [address] Licensed Practical Nurse Family Medicine 12/18/2302/11 Adelaida Carrion NP [address] [place] [address] Nurse Practitioner Family Medicine 01/27/24 Bong Rosado, [place] [address] [place] [address] Family Medicine 02/12/24 Juany Leggett PA [address] [place], [place] [address] Physician Barrel Drainer Neurology 07/26/24 documented as of this encounter
--- OUTSIDE RECORDS SUMMARY | 2024-10-17 10:56 | XMS_ITS | Encounter Summary ---
Author Organization [facility] Address [address] [place] [address] Care Team Providers Care Melt Superintendant Name Role Phone Adelaida Carrion NP Unavailable [phone] José Luis Roberts MD Primary Care Provider [phone] Miriam Suarez DO Unavailable [phone] Mathew Parra FURNITURE REMOVALIST Unavailable Unavailable Diana De Leon FURNITURE REMOVALIST Unavailable Unallocated, Noms Provider Primary Care Provi kellee Adelaida Carrion NP Unavailable [phone] José Luis Roberts MD Primary Care Provider [phone] Bong Rosado MA Unavailable [phone] Juany Leggett Unavailable Encounter Details Date Type Department Care Team (Late st Contact Info) Description 07/14/2023 Orders Only [facility] [address] [place] [address] Adelaida Carrion NP [address] [place] [address] Social History Tobacco Use Types [...] How often do you attend mormon or christianity serv ices? Never 05/18/2023 Do you belong [...] Recorded Patient Health Questionnaire-2 Score 0 07/07/2023 [facility] [place] of Occupat ional Health - Occupational Stress [...] [place] [facility] No 05/18/2023 Comments Unknown Sex [...] Procedure Visit [facility] [address] [place] [address] Adelaida Carrion NP [address] [place] [address] documented as of this encounter Procedures Procedure Name Priority Date/Time Associated Diagnosis Comments XR CHEST 1 VIEW Routine 07/11/2023 9:09 AM EDT documented in this encounter Results * XR chest 1 view (07/11/2023 9:09 AM EDT) Anatomical Region Laterality Modality Chest Radiographic Nelda ging Adelaida Carrion CLAY TRANSPORTER IMG XR PROCEDURES Final Result documented in this encounter Visit Diagnoses Not on filedocumented in this encounter Additional Health Concerns Assessment Noted Time PHQ-9 Depression Total Score: 8 05/18/19 24 5:00 PM EST documented as of this encounter Care Teams Melt Superintendant Relationship Specialty Start Date End Date José Luis Roberts MD [address] [place] [address] PCP - General Family Medicine 05/18/23 01/26/24 Unallocated, Noms Provider, [address] [place] [address] PCP - General Family Medicine 01/27/24 02/01/24 José Luis Roberts MD [address] [address] PCP - General Family Medicine 02/02/24 Adelaida Carrion NP Referring Physician Nurse Practitioner 10/14/22 Miriam Suarez DO [address] [place] [address] Referring Physician Neurology 06/29/23 Mathew Parra LPN Licensed Practical Nurse Family Medicine 07/23/23 Diana De Leon, ADRIAN [address] [place], [place] [address] Licensed Practical Nurse Family Medicine 12/18/2302/11 Adelaida Carrion NP [address] [place] [address] Nurse Practitioner Family Medicine 01/27/24 Bong Rosado, [place] [address] [place] [address] Family Medicine 02/12/24 Juany Leggett PA [address] [place] [address] Physician Stock Broker Supervisor Neurology 07/26/24 documented as of this encounter
--- OUTSIDE RECORDS SUMMARY | 2024-10-17 10:56 | XMS_ITS | Encounter Summary ---
Author Organization [facility] Address [address] [place] [address] Care Team Providers Care Carbon Brushes Assembler Name Role Phone Adelaida Carrion NP Unavailable [phone] José Luis Roberts MD Primary Care Provider [phone] José Luis Roberts MD Primary Care Provider [phone] Miriam Suarez DO Unavailable [phone] [place], Ardana SEMICONDUCTOR ASSEMBLER Unavailable Unavailable Aida Ardana SEMICONDUCTOR ASSEMBLER Unavailable Unavailable Diana De Leon SEMICONDUCTOR ASSEMBLER Unavailable Unallocated, Noms Provider Primary Care Provi kellee Adelaida Carrion NP Unavailable [phone] José Luis Roberts MD Primary Care Provider [phone] Bong Rosado MA Unavailable [phone] Juany Leggett Unavailable Encounter Details Date Type Department Care Team (Late st Contact Info) Description 03/25/2023 Abstract [facility] [address] [place] [address] Adelaida Carrion NP [address] [place] [address] Social History Tobacco Use Types Packs/Day Years [...] Procedure Visit [facility] [address] [place] [address] Adelaida Carrion NP [address] [place] [address] documented as of this encounter Visit Diagnoses Not on filedocumented in this encounter Care Teams Carbon Brushes Assembler Relationship Specialty Start Date End Date José Luis Roberts MD PCP - General Family Medicine 10/14/22 05/17/23 José Luis Roberts MD [address] [place] [address] PCP - General Family Medicine 05/18/23 01/26/24 Unallocated, Johan Sierra MD [address] [place] [address] PCP - General Family Medicine 01/27/24 02/01/24 José Luis Roberts MD [address] [place] [address] PCP - General Family Medicine 02/02/24 Adelaida Carrion NP Referring Physician Nurse Practitioner 10/14/22 Miriam Suarez DO [address] [place], [place] [address] Referring Physician Neurology 06/29/23 Mathew Parra LPN Registered Nurse Family Medicine 07/07/23 07/08/23 Mathew Parra LPN Licensed Practical Nurse Family Medicine 07/23/23 Diana De Leon LPN [address] [place], [place] [address] Licensed Practical Nurse Family Medicine 12/18/2302/11 Adelaida Carrion NP [address] [place] [address] Nurse Practitioner Family Medicine 01/27/24 Bong Rosado, [place] [address] [place] [address] Family Medicine 02/12/24 Juany Leggett PA [address] [place] [address] Physician Vacation Planner Neurology 07/26/24 documented as of this encounter
--- OUTSIDE RECORDS SUMMARY | 2024-10-17 10:56 | XMS_ITS | Encounter Summary ---
Author Organization [facility] Address [address] [place] [address] Care Team Providers Care Guidance Services Coordinator Name Role Phone Adelaida Carrion NP Unavailable [phone] José Luis Roberts MD Primary Care Provider [phone] Miriam Suarez DO Unavailable [phone] Mathew Parra PRODUCTION LINE MANAGER Unavailable Unavailable Diana De Leon LPN Unavailable Unallocated, Noms Provider Primary Care Provi kellee Adelaida Carrion NP Unavailable [phone] José Luis Roberts MD Primary Care Provider [phone] Bong Rosado MA Unavailable [phone] Juany Leggett Unavailable Encounter Details Date Type Department Care Team (Late st Contact Info) Description 09/01/2023 Orders Only [facility] [address] [place] [address] Shaikh Alberto MD [address] [facility] [place] [address] Social History Tobacco Use Types [...] How often do you attend congregation or latter-day serv ices? Never 08/16/2023 Do [...] [facility] FM [address] [place] [address] Adelaida Carrion NP [address] [place] [address] documented as of this encounter Procedures Procedure [...] documented as of this encounter Care Teams Guidance Services Coordinator Relationship Specialty Start Date End Date José Luis Roberts MD [address] [place] [address] PCP - General Family Medicine 05/18/23 01/26/24 Unallocated, Johan Sierra MD [address] [place] [address] PCP - General Family Medicine 01/27/24 02/01/24 José Luis Roberts MD [address] [place] [address] PCP - General Family Medicine 02/02/24 Adelaida Carrion NP Referring Physician Nurse Practitioner 10/14/22 Miriam Suarez DO [address] [place], [place] [address] Referring Physician Neurology 06/29/23 Mathew Parra LPN Licensed Practical Nurse Family Medicine 07/23/23 Diana De Leon LPN [address] [place] [address] Licensed Practical Nurse Family Medicine 12/18/2302/11 Adelaida Carrion NP [address] [place] [address] Nurse Practitioner Family Medicine 01/27/24 Bong Rosado MA [address] [place] [address] Family Medicine 02/12/24 Juany Leggett PA [address] [place], [place] [address] Physician Vp Clinical Research Neurology 07/26/24 documented as of this encounter
--- OUTSIDE RECORDS SUMMARY | 2024-10-17 10:56 | XMS_ITS | Encounter Summary ---
Author Organization [facility] Address [address] [place] [address] Care Team Providers Care Trail Maintenance Worker Name Role Phone Adelaida Carrion NP Unavailable [phone] José Luis Roberts MD Primary Care Provider Miriam Suarez DO Unavailable [phone] Diana De Leon LPN Unavailable Unallocated, Noms Provider Primary Care Provi kellee Adelaida Carrion NP Unavailable [phone] José Luis Roberts MD Primary Care Provider Bong Rosado MA Unavailable [phone] Juany Leggett Unavailable Encounter Details Date Type Department Care Team (Late st Contact Info) Description 01/21/2024 Orders Only [facility] [address] [place] [address] Adelaida Carrion NP [address] [place] [address] Social History Tobacco Use Types [...] How often do you attend restoration or mosque serv ices? Never 08/16/2023 Do [...] Patient Health Questionnaire-2 Score 2 09/21/2023 [facility] of Occupat ional Health [...] EDT Procedure Visit [facility] [address] [place] [address] Adelaida Carrion, BRIANA [address] [place] [address] documented as of this encounter Procedures Procedure Name Priority Date/Time Associated Diagnosis Comments CT HEAD OR BRAIN W/ & W/O CONTRAST Routine 01/21/2024 9:10 AM EDT documented in this encounter Results * CT HEAD OR BRAIN W/ & W/O CONTRAST (01/21/2024 9:10 AM EDT) Anatomical Region Laterality Modality Radiographic Nelda ging us Adelaida Carrion MACHINE ICER IMG XR PROCEDURES Final Result documented in this encounter Visit Diagnoses Not on filedocumented in this encounter Additional Health Concerns Assessment Noted Time PHQ-9 Depression Total Score: 8 05/18/19 24 5:00 PM EST documented as of this encounter Care Teams Trail Maintenance Worker Relationship Specialty Start Date End Date José Luis Roberts MD [address] [place] [address] PCP - General Family Medicine 05/18/23 01/26/24 Unallocated, Johan Sierra MD [address] [place] [address] PCP - General Family Medicine 01/27/24 02/01/24 José Luis Roberts MD [address] [place] [address] PCP - General Family Medicine 02/02/24 Adelaida Carrion NP Referring Physician Nurse Practitioner 10/14/22 Miriam Suarez DO [address] [place], [place] [address] Referring Physician Neurology 06/29/23 Diana De Leon LPN [address] [place] [address] Licensed Practical Nurse Family Medicine 12/18/2302/11 Adelaida Carrion NP [address] [place] [address] Nurse Practitioner Family Medicine 01/27/24 Bong Rosado, [place] [address] [place] [address] Family Medicine 02/12/24 Juany Leggett PA [address] [place], [place] [address] Physician Stem Frazer Neurology 07/26/24 documented as of this encounter
--- OUTSIDE RECORDS SUMMARY | 2024-10-17 10:56 | XMS_ITS | Encounter Summary ---
Author Organization [facility] Address [address] [facility] [place] [address] Care Team Providers Care Evaporative Cooler Installer Name Role Phone Adelaida Carrion NP Unavailable [phone] José Luis Roberts MD Primary Care Provider [phone] José Luis Roberts MD Primary Care Provider [phone] Miriam Suarez DO Unavailable [phone] [place], Ardana AUTOMATIC DRILLING MACHINE OPERATOR Unavailable Unavailable Aida Ardana AUTOMATIC DRILLING MACHINE OPERATOR Unavailable Unavailable Diana De Leon AUTOMATIC DRILLING MACHINE OPERATOR Unavailable Unallocated, Noms Provider Primary Care Provi kellee Adelaida Carrion SHREDDED FILLER HOPPER FEEDER Unavailable [phone] José Luis Roberts MD Primary Care Provider [phone] Bong Rosado MA Unavailable [phone] Juany Leggett Unavailable Encounter Details Date Type Department Care Team (Late st Contact Info) Description 11/14/2022 Abstract [facility] [address] [place] [address] Travon Hines PA [address] [place] [address] Social History Tobacco Use Types [...] Procedure Visit [facility]OHAN [facility]ANDU[facility] [address] [place] [address] Adelaida Carrion, BRIANA [address] [place] [address] documented as of this encounter Visit Diagnoses Not on filedocumented in this encounter Care Teams Evaporative Cooler Installer Relationship Specialty Start Date End Date José Luis Roberts MD PCP - General Family Medicine 10/14/22 05/17/23 José Luis Roberts MD [address] [place] [address] PCP - General Family Medicine 05/18/23 01/26/24 Unallocated, Johan Sierra MD [address] [place] [address] PCP - General Family Medicine 01/27/24 02/01/24 José Luis Roberts MD [address] [place] [address] PCP - General Family Medicine 02/02/24 Adelaida Carrion NP Referring Physician Nurse Practitioner 10/14/22 Miriam Suarez DO [address] [place], [place] [address] Referring Physician Neurology 06/29/23 Mathew Parra LPN Registered Nurse Family Medicine 07/07/23 07/08/23 Mathew Parra LPN Licensed Practical Nurse Family Medicine 07/23/23 Diana De Leon LPN [address] [place] [address] Licensed Practical Nurse Family Medicine 12/18/2302/11 Adelaida Carrion NP [address] [place] [address] Nurse Practitioner Family Medicine 01/27/24 Bong Rosado, [place] [address] [place] [address] Family Medicine 02/12/24 Juany Leggett PA [address] [place] [address] Physician Computer Technical Support Specialist Neurology 07/26/24 documented as of this encounter
--- OUTSIDE RECORDS SUMMARY | 2024-10-17 10:56 | XMS_ITS | Encounter Summary ---
Author Organization [facility] Address [address] [place] [address] Care Team Providers Care Supervisor Dehydrogenation Name Role Phone Adelaida Carrion NP Unavailable [phone] José Luis Roberts MD Primary Care Provider [phone] Miriam Suarez DO Unavailable [phone] Mathew Parra PROTECTION ANALYST Unavailable Unavailable Diana De Leon LPN Unavailable Unallocated, Noms Provider Primary Care Provi kellee Adelaida Carrion NP Unavailable [phone] José Luis Roberts MD Primary Care Provider [phone] Bong Rosado MA Unavailable [phone] Juany Leggett Unavailable Encounter Details Date Type Department Care Team (Late st Contact Info) Description 08/19/2023 Clinisync Result Encounter [facility] External Department Unsolicited Adelaida Carrion NP [address] [place] [address] Social History Tobacco Use Types Packs/Day Years [...] How often do you attend cheondoism or moravian serv ices? Never 08/16/2023 Do [...] Visit [facility] [address] [place] [address] Adelaida Carrion NP [address] [place] [address] documented as of this encounter Procedures Procedure Name Priority Date/Time Associated Diagnosis Comments CT LUNG SCREENING LOW DOSE 08/19/2023 6:06 AM EDT documented in this encounter Results * CT LUNG SCREENING LOW DOSE (08/19/2023 6:06 AM EDT) Anatomical Region Laterality Modality Other 08/19/2023 6:06 AM EDT Narrative 08/19/2023 6:09 [place] [address] CT Scan Report Signed Patient: NASIM INGRAM MR#: [id number] : 1960 Acct:[id number] Age/Sex: 62 / F ADM Date: 08/18/23 Loc: CT Attending Dr: Adelaida Carrion NETWORK SUPPORT ADMINISTRATOR Ordering Physician: Adelaida Carrion NP Date of Service: 08/18/23 Procedure(s): CT lung screening low-dose Accession Number(s): [id number] cc: Adelaida Carrion NP [address] [address] Patient Name: NASIM INGRAM MRN: [id number] date: 1960 Sex: F Assigned Patient Location: CT Current Patient Location: Accession/Order Number: [id number] Exam Date: 08/18/2023 13:28 Report Date: 08/19/2023 [...] M.D. Signed By: 08/19/23608 DD/ 5 TD/TT: Accounts Payable Representative: Procedure Note Radiology, Radiologist, MD - 08/19/[address] [facility] [place] [id number] Scan Report Signed Patient: NASIM INGRAM LMR#: [id number] : 1960cct:[id number] Age/Sex: 62 / FADM Date: 08/18/23 Loc: CT Attending Dr: Adelaida Carrion NP Ordering Physician: Adelaida Carrion NP Date of Service: 08/18/23 Procedure(s): CT lung screening low-dose Accession Number(s): [id number] cc: Adelaida Carrion NP The [address] [address] Patient Name: NASIM INGRAM MRN: [id number] date: 1960 Sex: F Assigned Patient Location: CT Current Patient Location: Accession/Order Number: [id number] Exam Date: 08/18/2023 13:28 Report Date: 08/19/2023 [...] Dhillon M.D. Signed By:08/19/23608 DD/ 5 TD/TT: Accounts Payable Representative: Adelaida Carrion NETWORK SUPPORT ADMINISTRATOR [facility] Final Result documented in this encounter Visit Diagnoses Not on filedocumented in this encounter Additional Health Concerns Assessment Noted Time PHQ-9 Depression Total Score: 8 05/18/19 24 5:00 PM EST documented as of this encounter Care Teams Supervisor Dehydrogenation Relationship Specialty Start Date End Date José Luis Roberts MD [address] [place] [address] PCP - General Family Medicine 05/18/23 01/26/24 Unallocated, Noms MD Mariela [address] [place] [address] PCP - General Family Medicine 01/27/24 02/01/24 José Luis Robrets MD [address] [place] [address] PCP - General Family Medicine 02/02/24 Adelaida Carrion NP Referring Physician Nurse Practitioner 10/14/22 Miriam Suarez DO [address] [place], [place] [address] Referring Physician Neurology 06/29/23 Mathew Parra LPN Licensed Practical Nurse Family Medicine 07/23/23 Diana De Leon LPN [address] [place] [address] Licensed Practical Nurse Family Medicine 12/18/2302/11 Adelaida Carrion NP [address] [place] [address] Nurse Practitioner Family Medicine 01/27/24 Bong Rosado, [place] [address] [place] [address] Family Medicine 02/12/24 Juany Leggett PA [address] [place], [place] [address] Physician Body Stylist Neurology 07/26/24 documented as of this encounter
--- OUTSIDE RECORDS SUMMARY | 2024-10-17 10:56 | XMS_ITS | Encounter Summary ---
Author Organization [facility] Address [address] [place] [address] Care Team Providers Care Grading Clerk Name Role Phone Miriam Suarez Unavailable [phone] Adelaida Carrion NP Unavailable [phone] José Luis Roberts MD Primary Care Provider Bong Rosado MA Unavailable [phone] Juany Leggett Unavailable Encounter Details Date Type Department Care Team (Late st Contact Info) Description 09/19/2024 Abstract [facility] [address] [place] [address] Adelaida Carrion, BRIANA [address] [place] [address] Social History Tobacco Use Types [...] How often do you attend voodoo or bahai serv ices? Never 08/16/2023 Do [...] Visit [facility] [address] [place] [address] Adelaida Carrion NP [address] [place] [address] documented as of this encounter Visit Diagnoses Not on filedocumented in this encounter Additional Health Concerns Assessment Noted Time PHQ-9 Depression Total Score: 8 05/18/19 24 5:00 PM EST documented as of this encounter Care Teams Grading Clerk Relationship Specialty Start Date End Date José Luis Roberts MD [address] [place] [address] PCP - General Family Medicine 02/02/24 Miriam Suarez DO [address] [place] [address] Referring Physician Neurology 06/29/23 Adelaida Carrion NP [address] [place] [address] Nurse Practitioner Family Medicine 01/27/24 Bong Rosado MA [address] [place] [address] Family Medicine 02/12/24 Juany Leggett PA [address] [place] [address] Physician Employee Relations Administrator Neurology 07/26/24 documented as of this encounter
--- OUTSIDE RECORDS SUMMARY | 2024-10-17 10:56 | XMS_ITS | Encounter Summary ---
Author Organization [facility] Address [address] [place] [address] Care Team Providers Care Butcher Assistant Name Role Phone Adelaida Carrion NP Unavailable [phone] José Luis Roberts MD Primary Care Provider [phone] Miriam Suarez DO Unavailable [phone] Mathew Parra CREMATORIUM OPERATOR Unavailable Unavailable Diana De Leon CREMATORIUM OPERATOR Unavailable Unallocated, Noms Provider Primary Care Provi kellee Adelaida Carrion NP Unavailable [phone] José Luis Roberts MD Primary Care Provider [phone] Bong Rosado MA Unavailable [phone] Juany Leggett Unavailable Encounter Details Date Type Department Care Team (Late st Contact Info) Description 08/26/2023 Orders Only [facility] [address] [place] [address] Arsalan Hagen MD [address] [address] Social History Tobacco Use Types Packs/Day Years [...] How often do you attend adventism or christianity serv ices? Never 08/16/2023 Do you belong [...] Recorded Patient Health Questionnaire-2 Score 0 08/17/2023 [facility] Occupat ional Health - Occupational Stress [...] Procedure Visit [facility] [address] [place] [address] Adelaida Carrion, BRIANA [address] [place] [address] documented as of this encounter Procedures Procedure [...] documented as of this encounter Care Teams Butcher Assistant Relationship Specialty Start Date End Date José Luis Roberts MD [address] [place] [address] PCP - General Family Medicine 05/18/23 01/26/24 Unallocated, Johan Sierra MD [address] [place] [address] PCP - General Family Medicine 01/27/24 02/01/24 José Luis Roberts MD [address] [place] [address] PCP - General Family Medicine 02/02/24 Adelaida Carrion, BRIANA Referring Physician Nurse Practitioner 10/14/22 Miriam Suarez DO [address] [place], [place] [address] Referring Physician Neurology 06/29/23 Mathew Parra LPN Licensed Practical Nurse Family Medicine 07/23/23 Diana De Leon LPN [address] [place] [address] Licensed Practical Nurse Family Medicine 12/18/2302/11 Adelaida Carrion NP [address] [facility] [place] [address] Nurse Practitioner Family Medicine 01/27/24 Bong Rosado, [place] [address] [place] [address] Family Medicine 02/12/24 Juany Leggett PA [address] [place] [address] Physician Physical Therapy Coordinator Neurology 07/26/24 documented as of this encounter
--- OUTSIDE RECORDS SUMMARY | 2024-10-17 10:56 | XMS_ITS | Encounter Summary ---
Author Organization [facility] Address [address] [place] [address] Care Team Providers Care Cleaner Laboratory Equipment Name Role Phone Adelaida Carrion NP Unavailable [phone] José Luis Roberts MD Primary Care Provider [phone] José Luis Roberts MD Primary Care Provider [phone] Miriam Suarez DO Unavailable [phone] [place], Ardana CANVAS SHRINKER Unavailable Unavailable Aida Ardana CANVAS SHRINKER Unavailable Unavailable Diana De Leon CANVAS SHRINKER Unavailable Unallocated, Noms Provider Primary Care Provi kellee Adelaida Carrion NP Unavailable [phone] José Luis Roberts MD Primary Care Provider [phone] Bong Rosado MA Unavailable [phone] Juany Leggett Unavailable Encounter Details Date Type Department Care Team (Late st Contact Info) Description 03/26/2023 Clinisync Result Encounter [facility] External Department Unsolicited Adelaida Carrion NP [address] [place] [address] Social History Tobacco Use Types Packs/Day Years [...] Visit [facility] [address] [place] [address] Adelaida Carrion NP [address] [place] [address] documented as of this encounter Procedures Procedure Name Priority Date/Time Associated Diagnosis Comments XR FOOT LT MIN 3V 03/26/2023 8:1 4 AM EST documented in this encounter Results * XR FOOT LT MIN 3V (03/26/2023 8:14 AM EST) Anatomical Region Laterality Modality Other 03/26/2023 8:14 AM EST Narrative 03/26/2023 8:17 AM EST [address] [address] XRay Report Signed Patient: NASIM INGRAM MR#: [id number] : 1960 Acct:[id number] Age/Sex: 62 / F ADM Date: 03/25/23 Loc: [facility] Attending Dr: Adelaida Carrion NP Ordering Physician: Adelaida Carrion NP Date of Service: 03/25/23 Procedure(s): XR foot LT min 3V Accession Number(s): [id number] cc: Adelaida Carrion NP [address] [address] Patient Name: NASIM INGRAM MRN: [id number] date: 1960 Sex: F Assigned Patient Location: [facility] Current Patient Location: Accession/Order Number: [id number] Exam Date: 03/25/2023 15:34 Report Date: 03/26/2023 08:14 At the request of: ADELAIDA CARRION Procedure: XR foot LT min 3V PROCEDURE: XR foot LT min 3V DATE: 03/25/2023 2:34 PM DIPPER AND DRIER COMPARISONS: None CLINICAL INDICATION: left foot pain [...] M.D. Signed By: 03/26/23816 DD/ 3 TD/TT: Assignment Agent: Procedure Note Radiology, Radiologist, MD - 03/26/2023 [place] [address] XRay Report Signed Patient: NASIM INGRAM LMR#: [id number] : 1960cct:[id number] Age/Sex: 62 / FADM Date: 03/25/23 Loc: RAD Attending Dr: Adelaida Carrion NP Ordering Physician: Adelaida Carrion NP Date of Service: 03/25/23 Procedure(s): XR foot LT min 3V Accession Number(s): [id number] cc: Adelaida Carrion NP The [address] [address] Patient Name: NASIM INGRAM MRN: [id number] date: 1960 Sex: F Assigned Patient Location: [facility] Current Patient Location: Accession/Order Number: [id number] Exam Date: 03/25/2023 15:34 Report Date: 03/26/2023 08:14 At the request of: ADELAIDA CARRION Procedure: XR foot LT min 3V PROCEDURE: XR foot LT min 3V DATE: 03/25/2023 2:34 PM DIPPER AND DRIER COMPARISONS: None CLINICAL INDICATION: left foot pain [...] Bloom M.D. Signed By:03/26/23816 DD/ 3 TD/TT: Assignment Agent: us Adelaida Carrion FOREST FIRE EQUIPMENT OPERATOR [facility] Final Result documented in this encounter Visit Diagnoses Not on filedocumented in this encounter Care Teams Cleaner Laboratory Equipment Relationship Specialty Start Date End Date José Luis Roberts MD PCP - General Family Medicine 10/14/22 05/17/23 José Luis Roberts MD [address] [place] [address] PCP - General Family Medicine 05/18/23 01/26/24 Unallocated, Noms MD Mariela [address] [place] [address] PCP - General Family Medicine 01/27/24 02/01/24 José Luis Roberts MD [address] [place] [address] PCP - General Family Medicine 02/02/24 Adelaida Carrion NP Referring Physician Nurse Practitioner 10/14/22 Miriam Suarez DO [address] [place] [address] Referring Physician Neurology 06/29/23 Mathew Parra LPN Registered Nurse Family Medicine 07/07/23 07/08/23 Mathew Parra LPN Licensed Practical Nurse Family Medicine 07/23/23 Diana De Leon LPN [address] [facility] [place] [address] Licensed Practical Nurse Family Medicine 12/18/2302/11 Adelaida Carrion NP [address] [place] [address] Nurse Practitioner Family Medicine 01/27/24 Bong Rosado, [place] [address] [place] [address] Family Medicine 02/12/24 Juany Leggett PA [address] [place] [address] Physician Guide Delegate Neurology 07/26/24 documented as of this encounter
--- OUTSIDE RECORDS SUMMARY | 2024-10-17 10:56 | XMS_ITS | Encounter Summary ---
Author Organization [facility] Address [address] [place] [address] Care Team Providers Care Product Safety Associate Name Role Phone Adelaida Carrion NP Unavailable [phone] José Luis Roberts MD Primary Care Provider [phone] José Luis Roberts MD Primary Care Provider [phone] Miriam Suarez DO Unavailable [phone] [place], Ardana MACARONI MAKER Unavailable Unavailable Fran Parradana MACARONI MAKER Unavailable Unavailable Diana De Leon MACARONI MAKER Unavailable Unallocated, Noms Provider Primary Care Provi kellee Adelaida Carrion DEPARTMENT OF MATHEMATICS CHAIR Unavailable José Luis Roberts MD Primary Care Provider [phone] Bong Rosado MA Unavailable [phone] Juany Leggett Unavailable Encounter Details Date Type Department Care Team (Late st Contact Info) Description 01/23/2023 Abstract [facility] [address] [place] [address] Travon Hines PA [address] [place] [address] Social History Tobacco Use Types [...] JOHAN MANDUJANO [address] [place] [address] Adelaida Carrion, BRIANA [address] [place] [address] documented as of this encounter Visit Diagnoses Not on filedocumented in this encounter Care Teams Product Safety Associate Relationship Specialty Start Date End Date José Luis Roberts MD PCP - General Family Medicine 10/14/22 05/17/23 José Luis Roberts MD [address] [place] [address] PCP - General Family Medicine 05/18/23 01/26/24 Unallocated, Johan Sierra MD [address] [place] [address] PCP - General Family Medicine 01/27/24 02/01/24 José Luis Roberts MD [address] [place] [address] PCP - General Family Medicine 02/02/24 Adelaida Carrion NP Referring Physician Nurse Practitioner 10/14/22 Miriam Suarez DO [address] [place], [place] [address] Referring Physician Neurology 06/29/23 Mathew Parra LPN Registered Nurse Family Medicine 07/07/23 07/08/23 Mathew Parra LPN Licensed Practical Nurse Family Medicine 07/23/23 Diana [place] LPN [address] [place] [address] Licensed Practical Nurse Family Medicine 12/18/2302/11 Adelaida Carrion NP [address] [place] [address] Nurse Practitioner Family Medicine 01/27/24 Bong Rosado, [place] [address] [place] [address] Family Medicine 02/12/24 Juany Leggett PA [address] [place] [address] Physician Community Music Therapist Neurology 07/26/24 documented as of this encounter
--- OUTSIDE RECORDS SUMMARY | 2024-10-17 10:56 | XMS_ITS | Encounter Summary ---
Author Organization [facility] Address [address] [place] [address] Care Team Providers Care Progressive Care Nurse Name Role Phone Adelaida Carrion NP Unavailable [phone] José Luis Roberts MD Primary Care Provider [phone] Miriam Suarez DO Unavailable [phone] Mathew Parra PRESS OPERATOR AUTOMATIC Unavailable Unavailable Diana De Leon PRESS OPERATOR AUTOMATIC Unavailable Unallocated, Noms Provider Primary Care Provi kellee Adelaida Carrion NP Unavailable [phone] José Luis Roberts MD Primary Care Provider [phone] Bong Rosado MA Unavailable [phone] Juany Leggett Unavailable Encounter Details Date Type Department Care Team (Late st Contact Info) Description 08/25/2023 Orders Only [facility] [address] [place] [address] Adealida Carrion NP [address] [place] [address] Social History Tobacco Use Types [...] How often do you attend restorationist or yazidi serv ices? Never 08/16/2023 Do [...] Recorded Patient Health Questionnaire-2 Score 0 08/17/2023 [facility]at ional [facility] - [...] [facility] [address] [place] [address] Adelaida Carrion, BRIANA [address] [place] [address] documented as of this encounter Procedures Procedure Name Priority Date/Time Associated Diagnosis Comments ELECTROCARDIOGRAM REPORT Routine 024 8:39 AM EDT documented in this encounter Results * Electrocardiogram Report (08/24/2023 8:39 AM EDT) us Adelaida Carrion ANTICHECKING IRON WORKER IN CLINIC/BEDSIDE ORDERABLES Fi nal Result documented in this encounter Visit Diagnoses Not on filedocumented in this encounter Additional Health Concerns Assessment Noted Time PHQ-9 Depression Total Score: 8 05/18/19 24 5:00 PM EST documented as of this encounter Care Teams Progressive Care Nurse Relationship Specialty Start Date End Date José Luis Roberts MD [address] [place] [address] PCP - General Family Medicine 05/18/23 01/26/24 Unallocated, Johan Sierra MD [address] [place] [address] PCP - General Family Medicine 01/27/24 02/01/24 José Luis Roberts MD [address] [place] [address] PCP - General Family Medicine 02/02/24 Adelaida Carrion NP Referring Physician Nurse Practitioner 10/14/22 Miriam Suarez DO [address] [place], [place] [address] Referring Physician Neurology 06/29/23 Mathew Parra LPN Licensed Practical Nurse Family Medicine 07/23/23 Diana De Leon LPN [address] [place] [address] Licensed Practical Nurse Family Medicine 12/18/2302/11 Adelaida Carrion NP [address] [place] [address] Nurse Practitioner Family Medicine 01/27/24 Bong Rosado, [place] [address] [place] [address] Family Medicine 02/12/24 Juany Leggett PA [address] [place] [address] Physician Head Tennis Coach Neurology 07/26/24 documented as of this encounter
== END 2024-10-17 10:54 | disposition home or self-care (01) ==
LOC: RAD 10:53
PROVIDERS: PCP Nurse Practitioner; Visit Provider Nurse Practitioner
DX: M81.0 Age-related osteoporosis without current pathological fracture (principal)
CPT/HCPCS: 77080

== ENCOUNTER 2024-11-14 21:23 | Outpatient (REF) | payer MEDICARE, SELFPAY ==
--- OUTSIDE RECORDS SUMMARY | 2024-11-14 10:30 | XMS_ITS | Encounter Summary ---
Author Organization [facility] Address [address] [place] [address] Care Team Providers Care Scene Painter Name Role Phone Miriam Suarez Unavailable [phone] Adelaida Carrion NP Unavailable [phone] José Luis Roberts MD Primary Care Provider Bong Rosado MA Unavailable [phone] Juany Leggett Unavailable Reason for Visit * Reason Comments Gynecologic Exam Encounter Details Date Type Department Care Team (Late st Contact Info) Description 11/14/2024 10:30 AM EDT Procedure Visit [facility] [address] [place] [address] Adelaida Carrion, BRIANA [address] [place] [id number] Well woman exam with routine gynecological exam (Primary Dx); Morbid (severe) obesity due to excess calories ([facility]); Primary hypertension ; Anemia, unspecified type; Bilateral lower extremity edema; Osteoporosis, unspecified osteoporosis type, unspecified pathological fracture presence ; Chronic kidney disease, stage 3a (CMS-HCC); Pre-diabetes Social History Tobacco Use Types Packs/Day Years Used Date Smoking Tobacco: Former Cigarettes 1 40 1 2016 Smokeless Tobacco: Never Alcohol Use Standard [...] How often do you attend catholic or methodist serv ices? Never 08/16/2023 Do [...] Recorded Patient Health Questionnaire-2 Score 2 09/21/2023 [facility] [place] of Occupat ional Health - Occupational Stress [...] Sign Reading Time Taken Comments Blood Pressure 124/84 11/14/2024 10:16 AM EDT Pulse 70 11/14/2024 10:16 AM EDT Temperature 36.6 C (97.8 F) 11/14/2024 10:16 AM EDT Respiratory Rate 20 11/14/2024 10:16 AM EDT Oxygen Saturation 98% 11/14/2024 10:16 AM EDT Inhaled Oxygen Concentration - - Weight 126 kg (277 lb 6.4 oz) 11/14/2024 10:16 A M EDT Height - - Body Mass Index 47.62 10/27/2024 10:05 AM EDT documented in this encounter Progress Notes * Adelaida Carrion NP - 11/14/2024 10:30 AM EDT Images from the original note were not included. Nasim Ingram is a 63 y.o. female presents with chief complaint of Gynecologic Exam HPI: Gynecologic Exam The patient's pertinent negatives include no genital itching, genital lesions, genital odor, genital rash, missed menses, pelvic pain, vaginal bleeding or vaginal discharge. She is not . Pertinent negatives include no abdominal pain, back pain, chills, constipation, diarrhea, dysuria, fever, flank pain, frequency, headaches, nausea, painful intercourse, rash, sore throat or vomiting. She is not sexually active. No, her partner does not have an STD. She uses abstinence for contraception.She is postmenopausal. SUBJECTIVE: MEDICATIONS: Current Outpatient Medications Medication Instructions amLODIPine (NORVASC) 10 mg, Oral, Daily biotin 5 MG tablet Pt taking OTC (UannaBe) Calcium Citrate-Vitamin D (CITRACAL + D PO) Pt taking OTC (SRCH2) Cannabinoids (medical cannabis) 1 each carvedilol (COREG) 12.5 mg, Oral, 2 times daily with meals diazePAM (Valium) 10 MG tablet 1 tab orally 30-60 mins before procedure as need for anxiety, claustrophobia. DULoxetine (CYMBALTA) 60 mg, 2 times daily fexofenadine (CATHY) 180 mg, Oral, Daily fluticasone (Flonase) 50 MCG/ACT nasal spray 2 sprays, Each Nostril, Daily gabapentin (NEURONTIN) 300 mg, Oral, 2 times daily, Due now Iron-Vitamin C (IRON 100/C PO) Take by mouth losartan (COZAAR) 100 mg, Oral, Daily Magnesium 400 MG capsule Pt taking OTC([facility]) Melatonin 12 MG tablet 1 tablet, Nightly Multiple Vitamins-Minerals (BARIATRIC MULTIVITAMINS/IRON PO) Pt taking OTC ([facility]) omeprazole (PRILOSEC) 20 mg, Oral, [...] and vomiting. Genitourinary: Negative for difficulty urinating, dysuria, flank pain, frequency, missed menses, pelvic pain and vaginal discharge. Musculoskeletal: Negative for arthralgias, back pain, joint [...] Diastolic dysfunction Dizziness 05/18/2023 Dysphagia Fibromyalgia Fibromyalgia Fibromyalgia, primary 2010 Gastrocnemius equinus GERD (gastroesophageal reflux disease) Heart murmur Hematoma of right breast Hemiparesis (HCC) Hemiparesis, right (HCC) Hemorrhoid int/external hemorrhoids Hiatal hernia Iron deficiency Left foot pain 03/25/2023 Lower extremity edema Memory loss 2009 Migraine 03/05/2024 Mood disorder mixed mood disorder OSMANY (obstructive sleep apnea) Osteoporosis Overactive bladder Pre-diabetes Primary hypertension 03/25/2023 PTSD (post-traumatic stress disorder) Restless leg Restless leg syndrome 1989 Right knee pain Right sided weakness S/P bariatric surgery Shingles Slurred speech Stroke ([facility]) 2018 Tenosynovitis, de Quervain [...] x2 LAMINECTOMY L4/L5 LAPAROSCOPIC GASTRIC BANDING 2008 LUMBAR LAMINECTOMY 1994 OTHER SURGICAL HISTORY hair follicle from scalp TONSILLECTOMY WISDOM TOOTH EXTRACTION WRIST SURGERY Left 10/31/2022 1ST DORSAL COMPARTMENT RELEASE family history includes Arthritis in her father; Dementia in her father; Depression in her mother; Diabetes in her maternal grandmother and mother; Heart disease in her father; Hyperlipidemia in her father; Hypertension in her father; Kidney failure in her mother; Neuropathy in her mother; Spinal Me ningitis in her mother. OBJECTIVE: Visit Vitals BP 124/84 (BP Location: Left arm, Patient Position: Sitting, BP Cuff Size: Large adult) Pulse 70 Temp 97.8 ??F (Temporal) Resp 20 Wt 277 lb 6.4 oz SpO2 98% BMI 47.62 kg/m?? Smoking Status Former BSA 2.39 m?? Physical Exam Vitals and nursing note reviewed. Exam conducted with a public policy coordinator present. Constitutional: General: She is not in [...] mass, lacerations, deformity, swelling or tenderness. Breasts: Chato Score is 5. Breasts are symmetrical. Right: Normal. No inverted nipple, nipple discharge, skin change or tenderness. Left: Normal. No inverted nipple, nipple discharge, skin change or tenderness. Abdominal: General: Bowel sounds are normal. There is no distension. Palpations: Abdomen is soft. There is no mass. Tenderness: There is no abdominal tenderness. Hernia: There is no hernia in the left inguinal area or right inguinal area. Genitourinary: General: Normal vulva. Exam position: Lithotomy position. Pubic Area: No rash. Chato stage (genital): 5. Labia: Right: No rash or lesion. Left: No rash, tenderness or lesion. Urethra: No prolapse, urethral pain, urethral swelling or urethral lesion. Vagina: Normal. Cervix: Normal. No cervical motion tenderness, discharge, friability or erythema. Uterus: Normal. Adnexa: Right adnexa normal and left adnexa normal. Comments: Bimanual exam limited d/t body habitus Musculoskeletal: General: Normal range of motion. Cervical back: Normal range of motion and neck supple. Right lower leg: No edema. Left lower leg: No edema. Lymphadenopathy: Upper Body: Right upper body: No supraclavicular, axillary or pectoral adenopathy. Left upper body: No supraclavicular, axillary or pectoral adenopathy. Lower Body: No right inguinal adenopathy. No [...] Morbid (severe) obesity due to excess calories ([facility]) - Primary Discussed with patient their BMI (actual, verses recommended). We have also discussed lifestyle modifications: attempts to perform physical activity as chronic conditions allow, also to monitor dietary intake: increasing protein/fruits/veggies and lowering carb intake (unless contraindicated). Limit sodas, juices, and sugary drinks. Has had bariatric surgeries in the past Osteoporosis DEXA: 10/17/24 osteopenia -1.7 FA Relevant Orders Comprehensive metabolic panel Pre-diabetes Relevant Orders Comprehensive metabolic panel Lipid panel Urinalysis with reflex microscopic (clean catch) Microalbumin / creatinine, urine ratio Anemia Relevant Orders CBC and differential Bilateral lower extremity edema Stable with current dose of aldactone 50mg daily Relevant Orders Comprehensive metabolic panel Well woman exam with routine gynecological exam THIN PREP, fu as per PAP results indicate Monthly BSE Calcium/vit D supplement unless chronic conditions indicate not Exercise as chronic conditions allow Relevant Orders THIN PREP TIS PAP AND HR HPV DNA Primary hypertension Please check blood pressure daily and record DASH diet Limit caffeine Take medication as directed Contact office if chest pain, pressure, dizziness, shortness of breath, swelling legs Recommend slow position changes Current meds: amlodipine, losartan, aldactone Relevant Orders Comprehensive metabolic panel Urinalysis with reflex microscopic (clean catch) Microalbumin / creatinine, urine ratio Chronic kidney disease, stage 3a ([facility]) Monitor labs at minimum every year Relevant Orders Comprehensive metabolic panel Vitamin D 25 hydroxy * Adelaida Carrion NP - 11/14/2024 6:38 AM EDTAssociated Problem(s): Chronic kidney disease, stage 3a ([facility]) Monitor labs at minimum every year * Adelaida Carrion NP - 11/14/2024 6:38 AM EDTAssociated Problem(s): Osteoporosis DEXA: 10/17/24 osteopenia -1.7 FA * Adelaida Carrion NP - 11/14/2024 6:37 AM EDTAssociated Problem(s): Bilateral lower extremity edema Stable with current dose of aldactone 50mg daily * Adelaida Carrion NP - 11/14/2024 6:36 AM EDTAssociated Problem(s): Primary hypertension Please check blood pressure daily and record DASH diet Limit caffeine Take medication as directed Contact office if chest pain, pressure, dizziness, shortness of breath, swelling legs Recommend slow position changes Current meds: amlodipine, losartan, aldactone * Adelaida Carrion NP - 11/14/2024 6:34 AM EDTAssociated Problem(s): Well woman exam with routine gynecological exam THIN PREP, fu as per PAP results indicate Monthly BSE Calcium/vit D supplement unless chronic conditions indicate not Exercise as chronic conditions allow * Adelaida Carrion NP - 11/14/2024 6:34 AM EDTAssociated Problem(s): Morbid (severe) obesity due to excess calories ([facility]) Discussed with patient their BMI (actual, verses recommended). We have also discussed lifestyle modifications: attempts to perform physical activity as chronic conditions allow, also to monitor dietary intake: increasing protein/fruits/veggies and lowering carb intake (unless contraindicated). Limit sodas, juices, and sugary drinks. Has had bariatric surgeries in the past documented in this encounter Plan of Treatment Upcoming Encounters Date Type Department Care Team (Late st Contact Info) Description 11/17/2024 8:45 AM EDT Ancillary Procedure [facility] [address] [place] [address] 11/18/2024 10:15 AM EDT Office Visit [facility] [address] [place] [address] PocHarvey preston, DO [address] [place] [address] 02/13/2025 9:40 AM EST Office Visit [facility] [address] [place] [address] Adelaida Carrion NP [address] [place] [address] Scheduled Orders Name Type Priority Associated Diagnoses Orde r Schedule THIN PREP TIS PAP AND HR HPV DNA Pathology and Cytology Routine Well woman exam with routine gynecological exam Expected: 11/14/2024 (Approximate), Expires: 11/14/2025 CBC and differential Lab Routine Anemia, unspecified type Expected: 11/14/2024 (Approximate), Expires: 11/14/2025 Comprehensive metabolic panel Lab Routine Primary hypertension Bilateral lower extremity edema Osteoporosis, unspecified osteoporosis type, unspecified pathological fracture presence Chronic kidney disease, stage 3a (CMS-HCC) Pre-diabetes Expected: 11/14/2024 (Approximate), Expires: 11/14/2025 Lipid panel Lab Routine Pre-diabetes Expected: 11/14/2024 (Approximate), Expires: 11/14/2025 Urinalysis with reflex microscopic (clean catch) Lab Routine Primary hypertension Pre-diabetes Expected: 11/14/2024 (Approximate), Expires: 11/14/2025 Microalbumin / creatinine, urine ratio Lab Routine Primary hypertension Pre-diabetes Expected: 11/14/2024 (Approximate), Expires: 11/14/2025 Vitamin D 25 hydroxy Lab Routine Chronic kidney disease, stage 3a (CMS-HCC) Expected: 11/14/2024 (Approximate), Expires: 11/14/2025 documented as of this encounter Visit Diagnoses Diagnosis Well woman exam with routine gynecological exam- Primary Routine gynecological examination Morbid (severe) obesity due to excess calories [place] Primary hypertension Unspecified essential hypertension Anemia, unspecified type Bilateral lower extremity edema Osteoporosis, unspecified osteoporosis type, unspecified pathological fracture presence Chronic kidney disease, stage 3a ([facility]) Pre-diabetes Other abnormal glucose documented in this encounter Additional Health Concerns Assessment Noted Time PHQ-9 Depression Total Score: 8 05/18/19 24 5:00 PM EST documented as of this encounter Care Teams Scene Painter Relationship Specialty Start Date End Date José Luis Roberts MD [address] [place] [address] PCP - General Family Medicine 02/02/24 Miriam Suarez DO [address] [place] [address] Referring Physician Neurology 06/29/23 Adelaida Carrion NP [address] [place] [address] Nurse Practitioner Family Medicine 01/27/24 Bong Rosado MA [address] [place] [address] Family Medicine 02/12/24 Juany Leggett PA [address] [place] [address] Physician Payment Analyst Neurology 07/26/24 documented as of this encounter
--- OUTSIDE RECORDS SUMMARY | 2024-11-14 21:31 | XMS_ITS | Encounter Summary ---
Author Organization [facility] Address [address] [place] [address] Care Team Providers Care Economic Specialist Name Role Phone Miriam Suarez Unavailable [phone] Adelaida Carrion NP Unavailable [phone] José Luis Roberts MD Primary Care Provider [phone] Bong Rosado MA Unavailable [phone] Juany Leggett Unavailable Encounter Details Date Type Department Care Team (Late st Contact Info) Description 10/10/2024 Abstract [facility] [address] [place] [phone] Adelaida Carrion, BRIANA [address] [place] [address] Social History Tobacco Use Types [...] How often do you attend judaism or protestant serv ices? Never 08/16/2023 Do you belong [...] 8:45 AM EDT Ancillary Procedure [facility] [address] [place] [address] 11/18/2024 10:15 AM EDT Office Visit [facility] [address] [place] [address] Harvey Bryan DO [address] [place] [address] 02/13/2025 9:40 AM EST Office Visit [facility] [address] [place] [address] Adelaida Carrion, BRIANA [address] [place] [address] documented as of this encounter Visit Diagnoses Not on filedocumented in this encounter Additional Health Concerns Assessment Noted Time PHQ-9 Depression Total Score: 8 05/18/19 24 5:00 PM EST documented as of this encounter Care Teams Economic Specialist Relationship Specialty Start Date End Date José Luis Roberts MD [address] [place] [phone] PCP - General Family Medicine 02/02/24 Miriam Suarez DO [address] [place] [address] Referring Physician Neurology 06/29/23 Adelaida Carrion, BRIANA [address] [place] [phone] Nurse Practitioner Family Medicine 01/27/24 Bong Rosado MA [address] [place] [address] Family Medicine 02/12/24 Juany Leggett PA [address] [place] [address] Physician Procedure Manager Neurology 07/26/24 documented as of this encounter
--- OUTSIDE RECORDS SUMMARY | 2024-11-14 21:31 | XMS_ITS | Encounter Summary ---
Author Organization [facility] Address [address] [place] [address] Care Team Providers Care Ski Lift Operator Name Role Phone Adelaida aCrrion NP Unavailable [phone] José Luis Roberts MD Primary Care Provider [phone] Miriam Suarez DO Unavailable [phone] Mathew Parra TALENT ACQUISITION ADMINISTRATOR Unavailable Unavailable Diana De Leon LPN Unavailable Unallocated, [facility] Provider Primary Care Provi kellee Adelaida Carrion NP Unavailable [phone] José Luis Roberts MD Primary Care Provider [phone] Bong Rosado MA Unavailable [phone] Juany Leggett Unavailable Encounter Details Date Type Department Care Team (Late st Contact Info) Description 10/27/2023 Abstract [facility] [address] [facility] [address] [place] [address] Unallocated, [facility] Provider, [address] [place] [address] Social History Tobacco Use Types Packs/Day Years [...] How often do you attend shinto or scientology serv ices? Never 08/16/2023 Do you belong [...] Recorded Patient Health Questionnaire-2 Score 2 09/21/2023 [facility] [place] of Occupat ional Health - Occupational Stress [...] Description 11/17/2024 8:45 AM EDT Ancillary Procedure [facility] [address] [place] [address] 11/18/2024 10:15 AM EDT Office Visit [facility] [address] [place] [address] Harvey Bryan, DO [address] [place] [address] 02/13/2025 9:40 AM EST Office Visit [facility] [address] [place] [address] Adelaida Carrion, BRIANA [address] [place] [address] documented as of this encounter Visit Diagnoses Not on filedocumented in this encounter Additional Health Concerns Assessment Noted Time PHQ-9 Depression Total Score: 8 05/18/19 24 5:00 PM EST documented as of this encounter Care Teams Ski Lift Operator Relationship Specialty Start Date End Date José Luis Roberts MD [address] [place] [phone] PCP - General Family Medicine 05/18/23 01/26/24 Unallocated, Johan Sierra MD [address] [facility] [place] [address] PCP - General Family Medicine 01/27/24 02/01/24 José Luis Roberts MD [address] [place] [address] PCP - General Family Medicine 02/02/24 Adelaida Carrion, SHOP STEWARD Referring Physician Nurse Practitioner 10/14/22 Miriam Suarez DO [address] [place] [address] Referring Physician Neurology 06/29/23 Mathew Parra LPN Licensed Practical Nurse Family Medicine 07/23/23 Diana De Leon LPN [address] [place] [address] Licensed Practical Nurse Family Medicine 12/18/2302/11 Adelaida Carrion NP [address] [place] [address] Nurse Practitioner Family Medicine 01/27/24 Bong Rosado, [place] [address] [place] [address] Family Medicine 02/12/24 Juany Leggett PA [address] [place], [place] [id number] Physician Java Swing Developer Neurology 07/26/24 documented as of this encounter
--- OUTSIDE RECORDS SUMMARY | 2024-11-14 21:31 | XMS_ITS | Encounter Summary ---
Author Organization [facility] Address [address] [place] [address] Care Team Providers Care Intelligence Operations Specialist Name Role Phone Adelaida Carrion NP Unavailable [phone] José Luis Roberts MD Primary Care Provider [phone] Miriam Suarez DO Unavailable [phone] Mathew Parra FELT CEMENTER Unavailable Unavailable Diana De Leon LPN Unavailable Unallocated, [facility] Provider Primary Care Provi kellee Adelaida Carrion NP Unavailable [phone] José Luis Roberts MD Primary Care Provider [phone] Bong Rosado MA Unavailable [phone] Juany Leggett Unavailable Encounter Details Date Type Department Care Team (Late st Contact Info) Description 09/18/2023 Clinisync Result Encounter [facility] External Department Unsolicited Adelaida Carrion NP [address] [place] [address] Social History Tobacco Use Types Packs/Day Years [...] declined 08/16/2023 How often do you attend orthodoxy or baptist serv ices? Never 08/16/2023 Do you belong to any clubs o r organizations such as orthodoxy groups, unions, fraternal or athletic groups, or [...] Ancillary Procedure [facility] [address] [place] [address] 11/18/2024 10:15 AM EDT Office Visit [facility] [address] [place] [address] Harvey Bryan, DO [address] [place] [address] 02/13/2025 9:40 AM EST Office Visit [facility] [address] [place] [address] Adelaida Carrion NP [address] [place] [address] documented as of this encounter Procedures Procedure Name Priority Date/Time Associated Diagnosis Comments MM TOMOSYNTHESIS SCREENING BI 09/18/2023 1:42 PM EDT documented in this encounter Results * MM TOMOSYNTHESIS SCREENING BI (09/18/2023 1:42 PM EDT) Anatomical Region Laterality Modality Other 09/18/2023 1:42 PM EDT Narrative 09/18/2023 1:43 PM EDT The [address] [address] Mammography Report Signed Patient: NASIM BE MR#: [id number] : 1960 Acct:[id number] Age/Sex: 62 / F ADM Date: 09/18/23 Loc: MAMMO Attending Dr: Adelaida Carrion NP Ordering Physician: Adelaida Carrion NP Results: Date of Service: 09/18/23 Follow Up: Procedure(s): MM tomosynthesis screening BI Accession Number(s): [id number] cc: Adelaida Carrion NP Patient Name: NASIM BE MR#: [id number] : 1960 Exam Date: 09/18/2023 Ordering Doctor: LIVIER Carrion FIELD CROP FARMING SUPERVISOR RADIOLOGY REPORT PROCEDURE: MM TOMOSYNTHESIS SCREENING BI COMPARISON: MM TOMOSYNTHESIS SCREENING BI, 09/15/2022. MG MAMM SCREEN 3D BHUMI CAD, 06/20/2021. INDICATIONS: Screening Calculator Name NCI Breast Cancer Risk Assessment Tool 5 Year Breast Cancer Risk 2.20% Lifetime Breast Cancer Risk 10.30% Personal Breast Cancer No Personal Ovarian Cancer No Treatments None Family Cancers None LOCATION: [facility] BREAST COMPOSITION: There are scattered areas [...] Signed By: 09/18/23 1343 DD/ 1342 TD/TT: Motorcycle Racer: Procedure Note Radiology, Radiologist, MD - 09/18/2023 [place] [address] Mammography Report Signed Patient: NASIM BE LMR#: [id number] : 1960cct:[id number] Age/Sex: 62 / FADM Date: 09/18/23 Loc: MAMMO Attending Dr: Adelaida Carrion NP Ordering Physician: Adelaida Carrion NPResults: Date of Service: 09/18/23Follow Up: Procedure(s): MM tomosynthesis screening BI Accession Number(s): [id number] cc: Adelaida Carrion NP Patient Name: NASIM BE MR#: [id number] : 1960 Exam Date: 09/18/2023 Ordering Doctor: LIVIER Carrion FIELD CROP FARMING SUPERVISOR RADIOLOGY REPORT PROCEDURE: MM TOMOSYNTHESIS SCREENING BI COMPARISON: MM TOMOSYNTHESIS SCREENING BI, 09/15/2022. MG MAMM QNGGPT3M BHUMI CAD, 06/20/2021. INDICATIONS: Screening Calculator Name NCI Breast Cancer Risk Assessment Tool 5 Year Breast Cancer Risk 2.20% Lifetime Breast Cancer Risk 10.30% Personal Breast Cancer No Personal Ovarian Cancer No Treatments None Family Cancers None LOCATION: [facility] BREAST COMPOSITION: There are scattered areas [...] 13:42 Dictated By: Harvey Gamble M.D. Signed By:09/18/231342 DD/ 41 TD/TT: Motorcycle Racer: Adelaida Carrion DIRECTOR OF [facility] Final Result documented in this encounter Visit Diagnoses Not on filedocumented in this encounter Additional Health Concerns Assessment Noted Time PHQ-9 Depression Total Score: 8 05/18/19 24 5:00 PM EST documented as of this encounter Care Teams Intelligence Operations Specialist Relationship Specialty Start Date End Date José Luis Roberts MD [address] [place] [address] PCP - General Family Medicine 05/18/23 01/26/24 Unallocated, Noms Provider, [address] [place], [place] [address] PCP - General Family Medicine 01/27/24 02/01/24 José Luis Roberts MD [address] [place] [address] PCP - General Family Medicine 02/02/24 Adelaida Carrion NP Referring Physician Nurse Practitioner 10/14/22 Miriam Suarez DO [address] [place] [address] Referring Physician Neurology 06/29/23 Mathew Parra LPN Licensed Practical Nurse Family Medicine 07/23/23 Diana De Leon LPN [address] [place] [address] Licensed Practical Nurse Family Medicine 12/18/2302/11 Adelaida Carrion NP [address] [place] [address] Nurse Practitioner Family Medicine 01/27/24 Bong Rosado, [place] [address] [place] [address] Family Medicine 02/12/24 Juany Leggett PA [address] [place] [address] Physician Airline Reservation Agent Neurology 07/26/24 documented as of this encounter
--- OUTSIDE RECORDS SUMMARY | 2024-11-14 21:31 | XMS_ITS | Encounter Summary ---
Author Organization [facility] Address [address] [place] [address] Care Team Providers Care Commercial Coordinator Name Role Phone Adelaida Carrion NP Unavailable [phone] José Luis Roberts MD Primary Care Provider [phone] Miriam Suarez DO Unavailable [phone] Mathew Parra DEVELOPMENT ENGINEER Unavailable Unavailable Diana De Leon DEVELOPMENT ENGINEER Unavailable Unallocated, Noms Provider Primary Care Provi kellee Adelaida Carrion NP Unavailable [phone] José Luis Roberts MD Primary Care Provider [phone] Bong Rosado MA Unavailable [phone] Juany Leggett Unavailable Encounter Details Date Type Department Care Team (Late st Contact Info) Description 09/21/2023 Orders Only [facility] [address] [place] [address] Adelaida Carrion NP [address] [facility] [place] [address] Social History Tobacco Use Types [...] declined 08/16/2023 How often do you attend gnosticist or baptism serv ices? Never 08/16/2023 Do you belong to any clubs o r organizations such as gnosticist groups, unions, fraternal or athletic groups, or [...] Procedure [facility] [address] [place] [address] 11/18/2024 10:15 AM EDT Office Visit [facility] [address] [place] [address] Harvey Bryan, DO [address] [place] [address] 02/13/2025 9:40 AM EST Office Visit [facility] [address] [place] [address] Adelaida Carrion NP [address] [place] [address] documented as of this encounter Procedures Procedure Name Priority Date/Time Associated Diagnosis Comments MM SCREENING MAMM WITH 3D JOSEF - US AND ADDITIONAL Routine 09/18/2023 8:06 AM EDT documented in this encounter Results * MM SCREENING MAMM WITH 3D JOSEF - US AND ADDITIONAL (09/18/2023 8:06 AM EDT) Anatomical Region Laterality Modality Radiographic Nelda ging Adelaida Carrion REHABILITATION NURSE IMG XR PROCEDURES Final Result documented in this encounter Visit Diagnoses Not on filedocumented in this encounter Additional Health Concerns Assessment Noted Time PHQ-9 Depression Total Score: 8 05/18/19 24 5:00 PM EST documented as of this encounter Care Teams Commercial Coordinator Relationship Specialty Start Date End Date José Luis Roberts MD [address] [place] [address] PCP - General Family Medicine 05/18/23 01/26/24 Unallocated, Noms ProviderMD [address] [place] [address] PCP - General Family Medicine 01/27/24 02/01/24 José Luis Roberts MD [address] [place] [address] PCP - General Family Medicine 02/02/24 Adelaida Carrion NP Referring Physician Nurse Practitioner 10/14/22 Miriam Suarez DO [address] [place] [address] Referring Physician Neurology 06/29/23 Mathew Parra LPN Licensed Practical Nurse Family Medicine 07/23/23 Diana De Leon LPN [address] [place] [address] Licensed Practical Nurse Family Medicine 12/18/2302/11 Adelaida Carrion NP [address] [place] [address] Nurse Practitioner Family Medicine 01/27/24 Bong Rosado MA [address] [place] [address] Family Medicine 02/12/24 Juany Leggett PA [address] [place] [address] Physician Financial Associate Neurology 07/26/24 documented as of this encounter
--- OUTSIDE RECORDS SUMMARY | 2024-11-14 21:31 | XMS_ITS | Encounter Summary ---
Author Organization [facility] Address [address] [place] [address] Care Team Providers Care Public Works Laborer Name Role Phone Miriam Suarez DO Unavailable [phone] Adelaida Carrion NP Unavailable [phone] José Luis Roberts MD Primary Care Provider Bong Rosado MA Unavailable [phone] Juany Leggett Unavailable Encounter Details Date Type Department Care Team (Late st Contact Info) Description 03/21/2024 Orders Only [facility] [address] [place] [address] Adelaida Carrion, BRIANA [address] [place] [address] Social History Tobacco Use Types Packs/Day Years [...] declined 08/16/2023 How often do you attend muslim or faith serv ices? Never 08/16/2023 Do you belong to any clubs o r organizations such as muslim groups, unions, fraternal or athletic groups, or [...] Recorded Patient Health Questionnaire-2 Score 2 09/21/2023 [facility] - Occupational [...] EDT Ancillary Procedure [facility] [address] [place] [address] 11/18/2024 10:15 AM EDT Office Visit [facility] [address] [place] [address] Harvey Bryan, DO [address] [place] [address] 02/13/2025 9:40 AM EST Office Visit [facility] [address] [place] [address] Adelaida Carrion, BRIANA [address] [place] [address] documented as of this encounter Procedures Procedure [...] * SCANNED LABS (03/21/2024 2:30 PM EST) [facility] LAB CHG PERFORMABLES Final Res ult * SCANNED LABS (03/21/2024 2:21 PM EST) Adelaida Carrion CERTIFIED MEDICAL TECHNICIAN ASSISTANT LAB CHG PERFORMABLES Final Resu lt * ECG 12 lead (03/21/2024 2:19 PM EST) [facility] ECG ORDERABLES Final Result * ECG 12 lead (03/21/2024 2:15 PM EST) [facility] ECG ORDERABLES Final Result * ECG 12 lead (03/21/2024 2:10 PM EST) us Clayton Galvan MD ECG ORDERABLES Final Result * ECG 12 lead (03/21/2024 2:07 PM EST) us Rochelle Keene MD ECG ORDERABLES Final Result * Complete echocardiogram dobutamine stress test (03/21/2024 2:03 PM EST) Anatomical Region Laterality Modality Ultrasound us Adelaida Carrion CERTIFIED MEDICAL TECHNICIAN ASSISTANT CV ECHO PROCEDURES Final Result documented in this encounter Visit Diagnoses Not on filedocumented in this encounter Additional Health Concerns Assessment Noted Time PHQ-9 Depression Total Score: 8 05/18/19 24 5:00 PM EST documented as of this encounter Care Teams Public Works Laborer Relationship Specialty Start Date End Date José Luis Roberts MD [address] [place] [address] PCP - General Family Medicine 02/02/24 Miriam Suarez DO [address] [place] [address] Referring Physician Neurology 06/29/23 Adelaida Carrion NP [address] [place] [address] Nurse Practitioner Family Medicine 01/27/24 Bong Rosado MA [address] [place] [address] Family Medicine 02/12/24 Juany Leggett PA [address] [place] [address] Physician Cart Pusher Neurology 07/26/24 documented as of this encounter
--- OUTSIDE RECORDS SUMMARY | 2024-11-14 21:31 | XMS_ITS | Clinical Summary ---
Author Organization [facility] Address [address], [address] [place] [address] Care Team Providers Care Plastic Outfitter Name Role Phone Adelaida Carrion APRN - [...] mouth daily Active Multiple Vitamins-Minera ls (THERAPEUTIC MULTIVITAMIN-RI NERALS) tablet Take 1 tablet by mouth [...] = 0.6 oz pur e alcohol) Rarely [facility] Utilities Answer Date Recorded In [...] in a senior care (including now)? No 08/24/2023 Food Insecurity Answer [...] 50+ years Vaccine (2 of 2 - PCV20 or PCV21) 2018 2017 Respiratory Syncytial Virus (RSV) or [...] EDT [facility] Potassium 4.6 3.7 - 5.3 mmol/L 01/20/2024 11:15 PM EDT [facility] Comment: Specimen hemolysis has exceeded the interference as defined by Paul. Value may be falsely increased. Suggest recollection if clinically indicated. Chloride 106 98 - 107 mmol/L 01/20/2024 11:15 PM EDT [facility] CO2 24 20 - 31 mmol/L 01/20/2024 11:15 PM T [facility] Anion Gap 10 9 - 16 mmol/L 01/20/2024 11:15 PM EDT [facility] Glucose 97 74 - 99 mg/dL 01/20/2024 11:15 PM EDT [facility] BUN 17 8 - 23 mg/dL 01/20/2024 11:15 PM EDT [facility] Creatinine 1.2(H) 0.50 - 0.90 mg/dL 01/20/2024 11:15 PM T [facility] Est, Glom Filt Rate 54(L) >60 mL/min/1.7 3m2 01/20/2024 11:15 PM EDT [facility] Comment: These results are not intended [...] EDT [facility] Calcium 8.8 8.6 - 10.4 mg/dL 01/20/2024 11:15 PM T [facility] Total Protein 6.5(L) 6.6 - 8.7 g/dL 01/20/2024 11:15 PM EDT [facility] Albumin 3.9 3.5 - 5.2 g/dL 01/20/2024 11:15 PM T [facility] Albumin/Globulin Ratio 1.5 1.0 - 2.5 01/20/2024 11:15 PM EDT [facility] Total Bilirubin 0.2 0.00 - 1.20 mg/dL 01/20/2024 11:15 PM EDT [facility] Alkaline Phosphatase 86 35 - 104 U/L 01/20/2024 11:15 PM EDT [facility] ALT 20 10 - 35 U/L 01/20/2024 11:15 PM EDT [facility] AST 27 10 - 35 U/L 01/20/2024 11:15 PM EDT [facility] Blood BLOOD SPECIMEN / Unknown 01/20/2024 11:15 PM EDT 01/21/2024 12:31 AM EDT us Rochelle Lopes MD CHEMISTRY ORDERABLES Final Resul t [facility] [address] [place] [address], [facility] [phone] from Last 3 Months or Most Recently Relevant to Health Maintenance Insurance Advance Directives Documents on File Type Date Recorded Patient Frit Mixer Expl anation ACP-Advance Directive 09/04/2023 1:02 PM * Full Code (Latest Code Status on File) Date Activated Date Inactivated Comments 08/24/2023 3:10 PM 09/03/2023 6:08 PM Care Teams Plastic Outfitter Relationship Specialty Start Date End Date Adelaida Carrion, COMPOSITE BOAT BUILDER - INSPECTOR FINAL ASSEMBLY CONVEYOR [address] [place] [address] PCP - General Nurse Practitioner 01/04/18
--- OUTSIDE RECORDS SUMMARY | 2024-11-14 21:31 | XMS_ITS | Encounter Summary ---
Author Organization [facility] Address [address] [place] [address] Care Team Providers Care Health Administration Teacher Name Role Phone Miriam Suarez DO Unavailable [phone] Adelaida Carrion NP Unavailable [phone] José Luis Roberts MD Primary Care Provider Bong Rosado MA Unavailable [phone] Juany Leggett Unavailable Reason for Visit * Reason Onset Date Comments Med Refill 04/12/2024 Encounter Details Date Type Department Care Team (Late st Contact Info) Description 04/12/2024 Refill [facility] [address] [place] [address] José Luis Roberts MD [address] [place] [address] Social History Tobacco Use Types [...] How often do you attend confucianism or buddhist serv ices? Never 08/16/2023 Do [...] Recorded Patient Health Questionnaire-2 Score 2 09/21/2023 [facility] of Occupat ional Health - Occupational Stress [...] [facility] [address] [place] [address] 11/18/2024 10:15 AM EDT Office Visit [facility] [address] [place] [address] Harvey Bryan DO [address] [place] [address] 02/13/2025 9:40 AM EST Office Visit [facility] [address] [place] [address] Adelaida Carrion NP [address] [place] [address] documented as of this encounter Visit Diagnoses Not on filedocumented in this encounter Additional Health Concerns Assessment Noted Time PHQ-9 Depression Total Score: 8 05/18/19 24 5:00 PM EST documented as of this encounter Care Teams Health Administration Teacher Relationship Specialty Start Date End Date José Luis Roberts MD [address] [place] [address] PCP - General Family Medicine 02/02/24 Miriam Suarez DO [address] [place] [address] Referring Physician Neurology 06/29/23 Adelaida Carrion NP [address] [place] [address] Nurse Practitioner Family Medicine 01/27/24 Bong Rosado, [place] [address] [place] [address] Family Medicine 02/12/24 Juany Leggett PA [address] [place] [address] Physician Sugar Mill Worker Neurology 07/26/24 documented as of this encounter
--- OUTSIDE RECORDS SUMMARY | 2024-11-14 21:31 | XMS_ITS | Encounter Summary ---
Author Organization [facility] Address [address] [place] [address] Care Team Providers Care Director Of Claims Name Role Phone Miriam Suarez DO Unavailable [phone] Adelaida Carrion NP Unavailable [phone] José Luis Roberts MD Primary Care Provider [phone] Bong Rosado MA Unavailable [phone] Juany Leggett Unavailable Encounter Details Date Type Department Care Team (Late st Contact Info) Description 03/02/2024 Orders Only [facility] [address] [place] [address] Adelaida Carrion, BRIANA [address] [place] [address] Social History Tobacco Use Types Packs/Day Years [...] often do you attend jehovah's witness or amish serv ices? Never 08/16/2023 Do you belong [...] Recorded Patient Health Questionnaire-2 Score 2 09/21/2023 [facility] - [...] EDT Ancillary Procedure [facility] [address] [place] [address] 11/18/2024 10:15 AM EDT Office Visit [facility] [address] [place] [address] Harvey Bryan DO [address] [place] [address] 02/13/2025 9:40 AM EST Office Visit [facility] [address] [place] [address] Adelaida Carrion, BRIANA [address] [place] [address] documented as of this encounter Procedures Procedure Name Priority Date/Time Associated Diagnosis Comments SCANNED LABS Routine 03/02/2024 7:33 AM EST documented in this encounter Results * SCANNED LABS (03/02/2024 7:33 AM EST) us Adelaida Carrion PHYSICIAN VICE PRESIDENT LAB CHG PERFORMABLES Final Resu lt documented in this encounter Visit Diagnoses Not on filedocumented in this encounter Additional Health Concerns Assessment Noted Time PHQ-9 Depression Total Score: 8 05/18/19 24 5:00 PM EST documented as of this encounter Care Teams Director Of Claims Relationship Specialty Start Date End Date José Luis Roberts MD [address] [place] [address] PCP - General Family Medicine 02/02/24 Miriam Suarez DO [address] [place] [address] Referring Physician Neurology 06/29/23 Adelaida Carrion, BRIANA [address] [place] [address] Nurse Practitioner Family Medicine 01/27/24 Bong Rosado MA [address] [place] [address] Family Medicine 02/12/24 Juany Leggett PA [address] [place] [address] Physician Verification Lead Neurology 07/26/24 documented as of this encounter
--- OUTSIDE RECORDS SUMMARY | 2024-11-14 21:31 | XMS_ITS | Encounter Summary ---
Author Organization [facility] Address [address] [place] [address] Care Team Providers Care Corn Shucker Name Role Phone Miriam Suarez DO Unavailable [phone] Adelaida Carrion NP Unavailable [phone] José Luis Roberts MD Primary Care Provider [phone] Bong Rosado MA Unavailable [phone] Juany Leggett Unavailable Encounter Details Date Type Department Care Team (Late st Contact Info) Description 08/08/2024 Abstract [facility] [address] [place] [address] José Luis Roberts MD [address] [place] [address] Social History Tobacco Use Types [...] declined 08/16/2023 How often do you attend anabaptism or hinduism serv ices? Never 08/16/2023 Do you belong to any clubs o r organizations such as anabaptism groups, unions, fraternal or athletic groups, or [...] Recorded Patient Health Questionnaire-2 Score 2 09/21/2023 [facility] - Occupational [...] Description 11/17/2024 8:45 AM EDT Ancillary Procedure [facility] [address] [place] [address] 11/18/2024 10:15 AM EDT Office Visit [facility] [address] [place] [address] Harvey Bryan DO [address] [place] [address] 02/13/2025 9:40 AM EST Office Visit [facility] [address] [place] [address] Adelaida Carrion, BRIANA [address] [place] [address] documented as of this encounter Visit Diagnoses Not on filedocumented in this encounter Additional Health Concerns Assessment Noted Time PHQ-9 Depression Total Score: 8 05/18/19 24 5:00 PM EST documented as of this encounter Care Teams Corn Shucker Relationship Specialty Start Date End Date José Luis Roberts MD [address] [place] [address] PCP - General Family Medicine 02/02/24 Miriam Suarez DO [address] [place] [address] Referring Physician Neurology 06/29/23 Adelaida Carrion, BRIANA [address] [place] [address] Nurse Practitioner Family Medicine 01/27/24 Bong Rosado MA [address] [place] [address] Family Medicine 02/12/24 Juany Leggett PA [address] [place] [address] Physician Psychological Operations Officer Neurology 07/26/24 documented as of this encounter
--- OUTSIDE RECORDS SUMMARY | 2024-11-14 21:31 | XMS_ITS | Encounter Summary ---
Author Organization [facility] Healthcare Address [address] [place] [address] Care Team Providers Care Vocational Rehab Consultant Name Role Phone Miriam Suarez DO Unavailable [phone] Adelaida Carrion NP Unavailable [phone] José Luis Roberts MD Primary Care Provider Bong Rosado MA Unavailable [phone] Juany Leggett Unavailable Encounter Details Date Type Department Care Team (Late st Contact Info) Description 03/08/2024 Orders Only [facility] [address] [place] [address] Dennis Steel DO Social History [...] How often do you attend gnosticism or synagogue serv ices? Never 08/16/2023 Do [...] Recorded Patient Health Questionnaire-2 Score 2 09/21/2023 [facility] - [...] Ancillary Procedure [facility] [address] [place] [address] 11/18/2024 10:15 AM EDT Office Visit [facility] [address] [place] [phone] Harvey Bryan DO [address] [place] [address] 02/13/2025 9:40 AM EST Office Visit [facility] [address] [place] [phone] Adelaida Carrion NP [address] [place] [phone] documented as of this encounter Procedures Procedure [...] documented as of this encounter Care Teams Vocational Rehab Consultant Relationship Specialty Start Date End Date José Luis Roberts MD [address] [place] [phone] PCP - General Family Medicine 02/02/24 Miriam Suarez DO [address] [place] [address] Referring Physician Neurology 06/29/23 Adelaida Carrion NP [address] [place] [address] Nurse Practitioner Family Medicine 01/27/24 Bong Rosado, [place] [address] [place] [address] Family Medicine 02/12/24 Juany Leggett PA [address] [place] [address] Physician Associate Relations Specialist Neurology 07/26/24 documented as of this encounter
--- OUTSIDE RECORDS SUMMARY | 2024-11-14 21:31 | XMS_ITS | Encounter Summary ---
Author Organization [facility] Address [address] [place] [address] Care Team Providers Care Pyrotechnist Name Role Phone Miriam Suarez Unavailable [phone] Adelaida Carrion NP Unavailable [phone] José Luis Roberts MD Primary Care Provider Bong Rosado MA Unavailable [phone] Juany Leggett Unavailable Encounter Details Date Type Department Care Team (Late st Contact Info) Description 10/10/2024 Abstract [facility] [address] [place] [phone] Adelaida Carrion, BRIANA [address] [place] [address] Social History Tobacco Use Types [...] How often do you attend judaism or denominational serv ices? Never 08/16/2023 Do [...] Procedure [facility] [address] [place] [phone] 11/18/2024 10:15 AM EDT Office Visit [facility] [address] [place] [address] Harvey Bryan DO [address] [place] [address] 02/13/2025 9:40 AM EST Office Visit [facility] [address] [place] [phone] Adelaida Carrion, BRIANA [address] [place] [phone] documented as of this encounter Visit Diagnoses Not on filedocumented in this encounter Additional Health Concerns Assessment Noted Time PHQ-9 Depression Total Score: 8 05/18/19 24 5:00 PM EST documented as of this encounter Care Teams Pyrotechnist Relationship Specialty Start Date End Date José Luis Roberts MD [address] [place] [id number] PCP - General Family Medicine 02/02/24 Miriam Suarez DO [address] [place] [address] Referring Physician Neurology 06/29/23 Adelaida Carrion, BRIANA [address] [place] [phone] Nurse Practitioner Family Medicine 01/27/24 Bong Rosado MA [address] [place] [address] Family Medicine 02/12/24 Juany Leggett PA [address] [place] [address] Physician Clinical Mental Health Counselor Neurology 07/26/24 documented as of this encounter
--- OUTSIDE RECORDS SUMMARY | 2024-11-14 21:31 | XMS_ITS | Clinical Summary ---
Author Organization [facility] Healthcare Address [address] [place] [address] Care Team Providers Care Fuse Spooler Name Role Phone Miriam Suarez DO Unavailable [phone] Adelaida Carrion NP Unavailable [phone] José Luis Roberts MD Primary Care Provider Bong Rosado MA Unavailable [phone] Juany Leggett Unavailable Allergies Active Allergy [...] (BARIATRIC MULTIVITAMINS/IR ON PO) Pt taking OTC ([email or web address]) Active biotin 5 MG tablet Pt taking OTC ([email or web address]) Active Calcium Citrate-Vitamin D (CITRACAL + D PO) Pt taking OTC ([employer]) Active Magnesium 400 MG capsule Pt taking OTC([facility] [place] [employer] (MCTAS: [place])) Active traZODone (Desyrel) 150 MG tablet Take 150 mg by mouth at bedtime Active DULoxetine (Cymbalta) [address] capsule Take 60 mg by mouth in the morning and 60 mg before bedtime. Do not crush or chew. Active Melatonin 12 MG tabletIndication s:from amazon [...] mouth at bedtime 90 tablet 2 5 Active Cariprazine HCl (Vraylar) 4.5 MG capsule Take 4.5 mg by mouth Daily 5 Active amLODIPine (Norvasc) 10 MG tabletIndication s:Essential (primary) hypertension Take 1 tablet (10 mg) by mouth Daily 30 tablet 5 5 Active carvedilol (Coreg) 12.5 MG tabletIndication s:Essential (primary) hypertension Take 1 tablet (12.5 mg) by mouth in the morning and 1 tablet (12.5 mg) in the evening. Take with meals. 60 tablet 5 5 Active fexofenadine (Nadia) 180 MG tabletIndication s:Allergic rhinitis, unspecified seasonality, unspecified trigger Take 1 tablet (180 mg) by mouth Daily 30 tablet 5 Active fluticasone (Flonase) 50 MCG/ACT nasal sprayIndications :Allergic rhinitis, unspecified Administer 2 sprays into each nostril Daily 16 g 5 Active losartan (Cozaar) 100 MG tabletIndication s:Essential (primary) hypertension Take 1 tablet (100 mg) by mouth Daily 30 tablet 5 Active omeprazole (PriLOSEC) [address] capsuleIndicatio ns:Gastro-esopha geal reflux disease without esophagitis Take 1 capsule (20 mg) by mouth in the morning. Take before meals. 30 capsule 5 5 Active spironolactone (Aldactone) 50 MG tabletIndication s:Bilateral lower extremity edema Take 1 tablet (50 mg) by mouth Daily 30 tablet 5 5 Active Iron-Vitamin C (IRON 100/C PO) Take by mouth Active Cannabinoids (medical cannabis) Take 1 each by mouth Active diazePAM (Valium) 10 MG tabletIndication s:Claustrophobia 1 tab orally 30-60 mins before procedure as need for anxiety, claustrophobia . 1 tablet 5 Active LORazepam (Ativan) 1 MG tablet TAKE 1 TABLET BY MOUTH once a week NEEDED for acute or severe anxiety 5 025 Discontin ued(Side effects) Active Problems Problem Noted Date Diagnosed Date Disorientation 10/13/2024 Assessment & Plan (10/13/2024 9:04 AM EDT): Hudson to be related to not using PAP I have reviewed hospital and ER notes Sxs have resolved She is going to be having MRI out pt Continue fu with neuro Wear PAP Chronic kidney disease, stage 3a 05/12/2024 Assessment & Plan (11/14/2024 6:38 AM EDT): Monitor labs at minimum every year Assessment & Plan (05/12/2024 6:40 AM EST): Monitor labs at minimum every year Body mass index (BMI) 45.0-49.9, adult 5 Primary hypertension 03/16/2024 Assessment & Plan (11/14/2024 6:36 AM EDT): Please check blood pressure daily and record DASH diet Limit caffeine Take medication as directed Contact office if chest pain, pressure, dizziness, shortness of breath, swelling legs Recommend slow position changes Current meds: amlodipine, losartan, aldactone Assessment & Plan (10/13/2024 9:05 AM EDT): [...] the ECHO on file from 05/10/2019 at [facility], as well as ECHO report from Mara Sampson earlier this year Well woman exam with routine gynecological exam 02/16/2024 Assessment & Plan (11/14/2024 6:34 AM EDT): THIN PREP, fu as per PAP results indicate Monthly BSE Calcium/vit D supplement unless chronic conditions indicate not Exercise as chronic conditions allow Assessment & Plan (02/16/2024 6:57 AM EST): THIN PREP, fu as per PAP results indicate Monthly BSE Calcium/vit D supplement unless chronic conditions indicate not Exercise as chronic conditions allow Needs flu shot 01/28/2024 AVM (arteriovenous malformation) brain ([facility]) 10/11/2023 Vascular malformation ([facility]) 10/11/2023 Brain lesion 10/11/2023 Carpal tunnel syndrome, right upper limb 024 Right arm weakness 10/11/2023 Bilateral lower extremity edema 10/05/2023 Assessment & Plan (11/14/2024 6:37 AM EDT): Stable with current dose of aldactone 50mg daily Assessment & Plan (08/16/2024 6:33 AM EDT): [...] MSC Doctor that manages your OSMANY: Daniela Assessment [...] MSC Doctor that manages your OSMANY: Daniela Assessment [...] Degenerative cervical disc 05/18/2023 Osteoporosis 05/18/2023 Overview (10/24/2024): Last done 09/15/22 -1.0 10/17/24: osteopenia -1.7 FA Assessment & Plan (11/14/2024 6:38 AM EDT): DEXA: 10/17/24 osteopenia -1.7 FA Pre-diabetes 05/18/2023 Assessment & Plan (08/16/2024 1:00 [...] excess calories 1 05/26/2022 Assessment & Plan (11/14/2024 6:34 AM EDT): Discussed with patient their BMI (actual, verses recommended). We have also discussed lifestyle modifications: attempts to perform physical activity as chronic conditions allow, also to monitor dietary intake: increasing protein/fruits/veggies and lowering carb intake (unless contraindicated). Limit sodas, juices, and sugary drinks. Has had bariatric surgeries in the past Assessment & Plan (08/16/2024 6:33 AM EDT): [...] No s/s resp distress URI, acute 06/14/2024 11/14/2024 Acute cystitis without hematuria 01/28/2024 08/16/2024 Assessment [...] 1 twice a day #14 pills, Lot [id number], exp 06/29 Acute cough 07/14/2023 10/21/2023 Assessment & Plan (08/17/2023 10:06 AM EDT): resolved Influenza 07/14/2023 10/21/2023 Acute cystitis with hematuria 05/21/2023 10/21/2023 Right sided weakness 05/18/2023 024 Hemorrhoid 05/18/2023 03/16/2024 Overview (05/18/2023): int/external hemorrhoids Brain vascular malformation ([facility]) 05/18/2023 03/16/2024 Constipation 05/18/2023 08/17/2023 Colon polyps [...] 0 10/21/2023 Pain in right knee 11/20/2016 4 Encounters Date Type Department Care Team Description 11/14/2024 10:30 AM EDT Procedure Visit [facility] [address] [place] [address] Adelaida Carrion NP Well woman exam with routine gynecological exam (Primary Dx); Morbid (severe) obesity due to excess calories ([facility]); Primary hypertension ; Anemia, unspecified type; Bilateral lower extremity edema; Osteoporosis, unspecified osteoporosis type, unspecified pathological fracture presence ; Chronic kidney disease, stage 3a ([facility]); Pre-diabetes 11/14/2024 Bamboo flowsheet [facility] [address] [place] [address] Adelaida Carrion NP 11/11/2024 Travel 10/28/2024 Telephone [facility] [address] [place] [address] Harvey Bryan DO New Med Request (MRI - Right knee - patient is claustrophobic and requests medication for testing uses Pavan Jewell ) 10/27/2024 10:15 AM EDT Office Visit [facility] [address] [place] [address] Harvey Bryan DO Right knee pain, unspecified chronicity (Primary Dx); Primary osteoarthritis of right knee; Morbid obesity ([facility]) 10/27/2024 8:20 AM EDT Ancillary Procedure [facility] [address] [place] [address] 10/27/2024 Travel 10/24/2024 Orders Only [facility] [address] [place] [address] Adelaida Carrion NP 10/13/2024 9:00 AM EDT Office Visit [facility] [address] [place] [address] Adelaida Carrion NP Disorientation (Primary Dx); Essential (primary) hypertension ; Allergic rhinitis, unspecified seasonality, unspecified trigger; Allergic rhinitis, unspecified; Gastro-esophageal reflux disease without esophagitis; Bilateral lower extremity edema; OSMANY (obstructive sleep apnea); Primary hypertension ; Osteoporosis, unspecified osteoporosis type, unspecified pathological fracture presence 10/13/2024 Orders Only [facility] [address] [place] [address] Adelaida Carrion, FOREST RANGER 10/13/2024 Bamboo flowsheet [facility] [address] [place] [address] Adelaida Carrion, FOREST RANGER 10/10/2024 Abstract [facility] [address] [place] [address] Dominique Carriona, FOREST RANGER 10/10/2024 Abstract [facility] [address] [place] [address] Adelaida Carrion, FOREST RANGER 10/10/2024 Abstract [facility] [address] [place] [address] Adelaida Carrion, FOREST RANGER 10/10/2024 Abstract [facility] [address] [place] [address] Dominique Carriona, FOREST RANGER 09/29/2024 Abstract [facility] [address] [place] [address] Adelaida Carrion, FOREST RANGER 09/29/2024 Clinisync Result Encounter [facility] External Department Unsolicited Provider, Generic External Data 09/26/2024 Clinisync Result Encounter NOMS External Department Unsolicited Adelaida Carrion, FOREST RANGER 09/26/2024 Clinisync Result Encounter NOMS External Department Unsolicited Adelaida Carrion, FOREST RANGER 09/26/2024 Clinisync Result Encounter NOMS External Department Unsolicited Provider, Generic External Data 09/21/2024 Patient Outreach [facility] [place] [address] [place] [address] Bong Rosado MA 09/19/2024 Abstract [facility] [address] [place] [address] Adelaida Carrion NP 08/30/2024 Patient Outreach [facility] [address] [place] [address] Bong Rosado MA 08/16/2024 11:30 AM EDT Office Visit [facility] [address] [place] [address] Adeladia Carrion NP Primary hypertension (Primary Dx); Bronchitis; Bilateral lower extremity edema; Morbid (severe) obesity due to excess calories ([facility]); Pre-diabetes; Allergic rhinitis, unspecified seasonality, unspecified trigger; Encounter for screening mammogram for malignant neoplasm of breast; Former cigarette smoker 08/16/2024 Bamboo flowsheet [facility] [address] [place] [address] Adelaida Carrion NP from Last 3 Months Immunizations Immunization Administration [...] Hyperlipidemia Father Hypertension Father Diabetes Maternal Grandmother Depression Mother Gwen Gonzalez Diabetes Mother Gwen Gonzalez Kidney failure Mother Gwen Gonzalez Neuropathy Mother Gwen Gonzalez Spinal Meningitis Mother Gwen Gonzalez Relation Name Status Comments Father Maternal Grandmother Mother Gwen Gonzalez Social History Tobacco Use Types Packs/Day Years [...] declined 08/16/2023 How often do you attend islam or taoist serv ices? Never 08/16/2023 Do you belong to any clubs o r organizations such as islam groups, unions, fraternal or athletic groups, or [...] Recorded Patient Health Questionnaire-2 Score 2 09/21/2023 [facility] - Occupational [...] oz) 11/14/2024 10:16 A M EDT Height 162.6 cm (5' 4 ) 10/27/2024 10:05 AM EDT Body Mass Index 47.62 10/27/2024 10:05 AM EDT Plan of Treatment Upcoming Encounters Date Type Department Care Team (Late st Contact Info) Description 11/17/2024 8:45 AM EDT Ancillary Procedure [facility] [address] [address] 11/18/2024 10:15 AM EDT Office Visit [facility] [address] [place] [address] Harvey Bryan, DO [address] [place] [address] 02/13/2025 9:40 AM EST Office Visit [facility] [address] [place] [address] Adelaida Carrion, BRIANA [address] [place] [address] Health Maintenance Due Date Last Done Comments CT Colonography 1961 FIT-DNA 1961 FIT 1961 FOBT 1960 Sigmoidoscopy 1960 HPV/Cotest 12/06/1991 Influenza Vaccine (#1) 2024 4, 02/13/2023, 05/28/2018 Medicare Annual Wellness (AWV) 02/15/2025 02/16/2024, 05/18/2023 Cervical Cancer Screening 08/28/2025 Pap Smear 08/28/2025 08/28/2022 Lung Cancer Screening Shared Decision Making 09/26/2025 Postponed from 1960 (Other Medical Reasons) Mammogram 09/26/2025 09/26/2024, 09/04, 09/18/2023, Additional history exists Colonoscopy 03/23/2033 03/23/2023, 02/04/2013 Colorectal Cancer Screening 03/23/2033 Procedures Procedure Name Priority Date/Time Associated Diagnosis Comments XR KNEE 3 VIEWS RIGHT Routine 10/27/2024 8:18 AM EDT Right knee pain, unspecified chronicity DEXA BONE DENSITY Routine 10/24/2024 1:1 7 PM EDT XR DEXA AXIAL SKELETON* Routine 10/13/2024 9:27 [...] from Last 3 Months Results * XR knee 3 views right (10/27/2024 8:18 AM EDT) Anatomical Region Laterality Modality Lower Extremities, Knee Right Radiogra [facility] Imaging Narrative 10/29/2024 11:56 AM EDT Imaging Result: Examination of the x-rays AP bilateral weight bearing, bilateral sunrise and right lateral knee total of five views with permanent images are saved to the record does show what appears to be moderate medial and lateral compartment osteoarthritis. She does have some articular change of the patellofemoral joint as well, but still articular cartilage remaining. She does have three screws in the patella, of varying direction. Difficult to define what this procedure was. Harvey Bryan DO IMG XR PROCEDURES Final Result * DEXA bone density (10/24/2024 1:17 PM EDT) Anatomical Region Laterality Modality Body Radiographic Nelda ging Adelaida Carrion NP IMG DXA PROCEDURES Final Result * XR DEXA AXIAL SKELETON* (10/13/2024 9:27 AM EDT) Anatomical Region Laterality Modality Radiographic Nelda ging Adelaida Carrion NP IMG XR PROCEDURES Final Result * XR hips bilateral 2 views (09/29/2024 11:23 AM EDT) Anatomical Region Laterality Modality Lower Extremities, Hip Bilateral Radiograp hic Imaging 09/29/2024 11:2 3 AM EDT Narrative 09/29/2024 11:26 [place] [address] XRay Report Signed Patient: NASIM BE MR#: [id number] : 1960 Acct:[id number] Age/Sex: 63 / F ADM Date: 09/29/24 Loc: RAD Attending Dr: Elizabeth Culp NP Ordering Physician: Elizabeth Culp NP Date of Service: 09/29/24 Procedure(s): XR hip BHUMI Accession Number(s): [id number] cc: Adelaida Carrion NP; Elizabeth Culp NP [address] [address] Patient Name: NASIM BE MRN: [id number] date: 1960 Sex: F Assigned Patient Location: RAD Current Patient Location: RAD Accession/Order Number: [id number] Exam Date: 09/29/2024 11:20 Report Date: 09/29/2024 [...] Bernal M.D. 09/29/2024 11:23 AM Dictation Location: [place] [address] Electronically authenticated by: [id number] Y Date: 09/29/2024 11:23 Dictated By: Edith Bernal M.D. Signed By: 09/29/24 1126 DD/ 1123 TD/TT: Wire Drawer: Procedure Note Radiology, Radiologist, MD - 09/29/2024 [place] [address] XRay Report Signed Patient: NASIM BE LMR#: [id number] : 1960cct:[id number] Age/Sex: 63 / FADM Date: 09/29/24 Loc: [facility] Attending Dr: Elizabeth Culp NP Ordering Physician: Elizabeth Culp NP Date of Service: 09/29/24 Procedure(s): XR hip BHUMI Accession Number(s): [id number] cc: Adelaida Carrion FOREST RANGER; Elizabeth Culp NP The [place] [id number] Patient Name: NASIM BE MRN: [id number] date: 1960 Sex: F Assigned Patient Location: [facility] Current Patient Location: [facility] Accession/Order Number: [id number] Exam Date: 09/29/2024 11:20 Report Date: 09/29/2024 11:23 At the request of: ELIZABETH JEROME FOREST RANGER Procedure: XR hip BHUMI BILATERAL HIPS - [...] Bernal M.D. 09/29/2024 11:23 AM Dictation Location: [place] [address] Electronically authenticated by: [id number] Y Date: 1:23 Dictated By: Edith Bernal M.D. Signed By:09/29/24 1126 DD/ 1123 TD/TT: Wire Drawer: Generic External Data Provider IMG XR PROCEDURES Final Result * CT LUNG SCREENING LOW DOSE (09/26/2024 5:02 PM EDT) Anatomical Region Laterality Modality Other 09/26/2024 5:02 PM EDT Narrative 09/26/2024 5:04 [place] [address] CT Scan Report Signed Patient: NASIM BE MR#: [id number] : 1960 Acct:[id number] Age/Sex: 63 / F ADM Date: 09/26/24 Loc: MAMMO Attending Dr: Adelaida Carrion NP Ordering Physician: Adelaida Carrion NP Date of Service: 09/26/24 Procedure(s): CT lung screening low-dose Accession Number(s): [id number] cc: Adelaida Carrion NP The [address] [address] Patient Name: NASIM BE MRN: [facility]:[id number] date: 1960 Sex: F Assigned Patient Location: [facility] Current Patient Location: RAD Accession/Order Number: [id number] Exam Date: 09/26/2024 16:58 Report Date: 09/26/2024 [...] Guadalupe M.D. 09/26/2024 5:02 PM Dictation Location: [place] [address] Electronically authenticated by: [id number] Y Date: 09/26/2024 17:02 Dictated By: Shaheed Guadalupe M.D. Signed By: 09/26/24 1704 DD/ 01 TD/TT: Wire Drawer: Procedure Note Radiology, Radiologist, - 09/26/[address] [address] [address] Scan Report Signed Patient: NASIM BE LMR#: [id number] : 1960cct:[id number] Age/Sex: 63 / FADM Date: 09/26/24 Loc: [facility]AMMO Attending Dr: Adelaida Carrion NP Ordering Physician: Adelaida Carrion NP Date of Service: 09/26/24 Procedure(s): CT lung screening low-dose Accession Number(s): [id number] cc: Adelaida Carrion NP [address] [address] Patient Name: NASIM BE MRN: [id number] date: 1960 Sex: F Assigned Patient Location: MAMMO Current Patient Location: RAD Accession/Order Number: [id number] Exam Date: 09/26/2024 16:58 Report Date: 09/26/2024 [...] Guadalupe M.D. 09/26/2024 5:02 PM Dictation Location: [place] [address] Electronically authenticated by: [id number] Y Date: 7:02 Dictated By: Shaheed Guadalupe M.D. Signed By:09/26/241703 DD/ 01 TD/TT: Wire Drawer: Adelaida Carrion NP [facility] Final Result * MM TOMOSYNTHESIS SCREENING BI (09/26/2024 4:42 PM EDT) Anatomical Region Laterality Modality Other 09/26/2024 4:42 PM EDT Narrative 09/26/2024 4:43 [place] [address] Mammography Report Signed Patient: NASIM BE MR#: [id number] : 1960 Acct:[id number] Age/Sex: 63 / F ADM Date: 09/26/24 Loc: MAMMO Attending Dr: Adelaida Carrion NP Ordering Physician: Adelaida Carrion NP Results: Date of Service: 09/26/24 Follow Up: Procedure(s): MM tomosynthesis screening BI Accession Number(s): [id number] cc: Adelaida Carrion NP Patient Name: NASIM BE MR#: [id number] : 1960 Exam Date: 09/26/2024 Ordering Doctor: [...] None Family Cancers None LOCATION: [facility] BREAST COMPOSITION: There are scattered areas [...] M.D. Signed By: 09/26/241642 DD/ 41 TD/TT: Wire Drawer: Procedure Note Radiology, Radiologist, MD - 09/26/2024 [place] [address] Mammography Report Signed Patient: NASIM BE LMR#: [id number] : 1960cct:[id number] Age/Sex: 63 / FADM Date: 09/26/24 Loc: MAMMO Attending Dr: Adelaida Carrion NP Ordering Physician: Adelaida Carrion NPResults: Date of Service: 09/26/24Follow Up: Procedure(s): MM tomosynthesis screening BI Accession Number(s): [id number] cc: Adelaida Carrion NP Patient Name: NASIM BE MR#: [id number] : 1960 Exam Date: 09/26/2024 Ordering Doctor: LIVIER CARRION WET ROLLER RADIOLOGY REPORT PROCEDURE: MM TOMOSYNTHESIS SCREENING BI [...] None Family Cancers None LOCATION: [facility] BREAST COMPOSITION: There are scattered areas [...] Grover M.D. Signed By:09/26/241642 DD/ 41 TD/TT: Wire Drawer: us Adelaida Carrion NP [facility] Final Result * XR SHOULDER RT MIN 2V (09/26/2024 1:35 PM EDT) Anatomical Region Laterality Modality Other 09/26/2024 1:35 PM EDT Narrative 09/26/2024 1:38 [place] [address] XRay Report Signed Patient: NASIM BE MR#: [id number] : 1960 Acct:[id number] Age/Sex: 63 / F ADM Date: 09/26/24 Loc: RAD Attending Dr: Elizabeth Culp NP Ordering Physician: Elizabeth Culp NP Date of Service: 09/26/24 Procedure(s): XR shoulder RT min 2V Accession Number(s): [id number] cc: Adelaida Carrion NP; Elizabeth Culp NP The [place] [address] Patient Name: NASIM BE MRN: [facility]:[id number] date: 1960 Sex: F Assigned Patient Location: [facility] Current Patient Location: [facility] Accession/Order Number: [id number] Exam Date: 09/26/2024 13:34 Report Date: 09/26/2024 [...] Guadalupe M.D. 09/26/2024 1:35 PM Dictation Location: [place] [address] Electronically authenticated by: [id number] Y Date: 09/26/2024 13:35 Dictated By: Shaheed Guadalupe M.D. Signed By: 09/26/24 1338 DD/ 1335 TD/TT: Wire Drawer: Procedure Note Radiology, Radiologist, MD - 09/26/2024 [place] [address] XRay Report Signed Patient: NASIM BE LMR#: [id number] : 1960cct:[id number] Age/Sex: 63 / FADM Date: 09/26/24 Loc: [facility] Attending Dr: Elizabeth Culp NP Ordering Physician: Elizabeth Culp NP Date of Service: 09/26/24 Procedure(s): XR shoulder RT min 2V Accession Number(s): [id number] cc: Adelaida Carrion NP; Elizabeth Culp NP [place] [address] Patient Name: NASIM BE MRN: [id number] date: 1960 Sex: F Assigned Patient Location: [facility] Current Patient Location: [facility] Accession/Order Number: [id number] Exam Date: 09/26/2024 13:34 Report Date: 09/26/2024 [...] Guadalupe M.D. 09/26/2024 1:35 PM Dictation Location: [place] [address] Electronically authenticated by: [id number] Y Date: 3:35 Dictated By: Shaheed Guadalupe M.D. Signed By:09/26/24 1338 DD/ TD/TT: Wire Drawer: us Generic External Data Provider [facility] Final Result * POCT glycosylated hemoglobin (Hb A1C) docked device (08/16/2024 11:53 AM EDT) Hemoglobin A1C 5.6 Blood Venous blood specimen / Unknown 08/16/2024 11:53 AM EDT us Adelaida Carrion NP POINT OF CARE TEST ENTER/EDIT O RDERABLES Final Result from Last 3 Months Insurance [place] [address] Advance Directives Documents on File Type Date Recorded Patient Collections Officer Expl anation Power of Jewelry Polisher 03/16/2024 9:42 AM darian ellis of workers compensation attorney Power of Jewelry Polisher 03/10/2024 3:12 PM POA Care Teams Fuse Spooler Relationship Specialty Start Date End Date José Luis Roberts MD [address] [place] [address] PCP - General Family Medicine 02/02/24 Miriam Suarez DO [address] [place] [address] Referring Physician Neurology 06/29/23 Adelaida Carrion NP [address] [place] [address] Nurse Practitioner Family Medicine 01/27/24 Bong Rosado, [place] [address] [place] [address] Family Medicine 02/12/24 Juany Leggett PA [address] [place] [address] Physician Formal Wear Rental Clerk Neurology 07/26/24
--- OUTSIDE RECORDS SUMMARY | 2024-11-14 21:31 | XMS_ITS | Encounter Summary ---
Author Organization [facility] Address [address] [place] [address] Care Team Providers Care Diet Supervisor Name Role Phone Miriam Suarez DO Unavailable [phone] Adelaida Carrion NP Unavailable [phone] José Luis Roberts MD Primary Care Provider Bong Rosado MA Unavailable [phone] Juany Leggett Unavailable Encounter Details Date Type Department Care Team (Late st Contact Info) Description 03/17/2024 Orders Only [facility] [address] [place] [address] Adelaida Carrion, BRIANA [address] [place] [address] Social History Tobacco Use Types Packs/Day Years [...] How often do you attend episcopal or yarsani serv ices? Never 08/16/2023 Do [...] Questionnaire-2 Score 2 09/21/2023 [facility] - Occupational Stress Questionnaire [...] EDT Ancillary Procedure [facility] [address] [place] [address] 11/18/2024 10:15 AM EDT Office Visit [facility] [address] [place] [address] Harvey Bryan DO [address] [place] [address] 02/13/2025 9:40 AM EST Office Visit [facility] [address] [place] [address] Adelaida Carrion, BRIANA [address] [place] [address] documented as of this encounter Procedures Procedure [...] documented as of this encounter Care Teams Diet Supervisor Relationship Specialty Start Date End Date José Luis Roberts MD [address] [place] [address] PCP - General Family Medicine 02/02/24 Miriam Suarez DO [address] [place] [address] Referring Physician Neurology 06/29/23 Adelaida Carrion, BRIANA [address] [place] [address] Nurse Practitioner Family Medicine 01/27/24 Bong Rosado, [place] [address] [place] [address] Family Medicine 02/12/24 Juany Leggett PA [address] [place] [address] Physician Payroll Assistant Neurology 07/26/24 documented as of this encounter
--- OUTSIDE RECORDS SUMMARY | 2024-11-14 21:31 | XMS_ITS ---
Author Organization [facility] Address [address] [place] [address] Care Team Providers Care Program Manager Environmental Planning Name Role Phone Miriam Suarez DO Unavailable [phone] Adelaida Carrion NP Unavailable [phone] José Luis Roberts MD Primary Care Provider [phone] Bong Rosado MA Unavailable [phone] Juany Leggett Unavailable Chronic Care Management [...] Name Relationship Phone Bong Rosado MA(Responsible Staff) [phone] Continued Care and Services Coordination
--- OUTSIDE RECORDS SUMMARY | 2024-11-14 21:31 | XMS_ITS | Encounter Summary ---
Author Organization [facility] Address [address] [place] [address] Care Team Providers Care Websphere Commerce Developer Name Role Phone Miriam Suarez DO Unavailable [phone] Adelaida Carrion NP Unavailable [phone] José Luis Roberts MD Primary Care Provider Bong Rosado MA Unavailable [phone] Juany Leggett Unavailable Reason for Visit * Reason Onset Date Comments Med Refill 07/08/2024 Encounter Details Date Type Department Care Team (Late st Contact Info) Description 07/08/2024 Refill [facility] [address] [place] [address] José Luis Roberts MD [address] [place] [address] Social History Tobacco Use Types [...] How often do you attend restorationist or orthodox serv ices? Never 08/16/2023 Do [...] Recorded Patient Health Questionnaire-2 Score 2 09/21/2023 [facility] [place] of Occupat ional Health - Occupational Stress [...] LU - 07/19/2024 9:59 AM EDT Text Slot Tag Inserter Hi, this is Nasim Ingram. My date of versus [id number] was calling about the dilkon that I requested to be called in yesterday. There is nothing at drug more yet. Thank you. * Telephone Encounter - VALERIE LU - 07/18/2024 10:57 AM EDT Text Slot Tag Inserter Adelaida Fraser, this is Nasim Ingram. Surendra [phone] [id number] need to have you call in a prescription for [place] to the pharmacy at [facility], Dr. Ricci, other yeast infection, thank you. * Telephone Encounter - Adelaida Carrion NP - 07/13/2024 9:04 PM EDT Ordered by pain mgmt documented in this encounter Plan of Treatment Upcoming Encounters Date Type Department Care Team (Late st Contact Info) Description 11/17/2024 8:45 AM EDT Ancillary Procedure [facility] [address] [place] [address] 11/18/2024 10:15 AM EDT Office Visit [facility] [address] [place] [address] PocHarvey preston, DO [address] [place] [address] 02/13/2025 9:40 AM EST Office Visit [facility] [address] [place] [address] Adelaida Carrion NP [address] [place] [address] documented as of this encounter Visit Diagnoses Not on filedocumented in this encounter Additional Health Concerns Assessment Noted Time PHQ-9 Depression Total Score: 8 05/18/19 24 5:00 PM EST documented as of this encounter Care Teams Websphere Commerce Developer Relationship Specialty Start Date End Date José Luis Roberts MD [address] [place] [address] PCP - General Family Medicine 02/02/24 Miriam Suarez DO [address] [place], [place] [address] Referring Physician Neurology 06/29/23 Adelaida Carrion NP [address] [place] [address] Nurse Practitioner Family Medicine 01/27/24 Bong Rosado MA [address] [place] [address] Family Medicine 02/12/24 Juany Leggett PA [address], [place] [address] Physician Rubber Molder Neurology 07/26/24 documented as of this encounter
--- OUTSIDE RECORDS SUMMARY | 2024-11-14 21:31 | XMS_ITS | Encounter Summary ---
Author Organization [facility] Address [address] [place] [address] Care Team Providers Care Cork Cutter Name Role Phone Mirima Suarez Unavailable [phone] Adelaida Carrion NP Unavailable [phone] José Luis Roberts MD Primary Care Provider [phone] Bong Rosado MA Unavailable [phone] Juany Leggett Unavailable Encounter Details Date Type Department Care Team (Late st Contact Info) Description 09/29/2024 Abstract [facility] [address] [place] [address] Adelaida Carrion, BRIANA [address] [place] [address] Social History Tobacco Use Types [...] How often do you attend protestant or faith serv ices? Never 08/16/2023 Do [...] Patient Health Questionnaire-2 Score 2 09/21/2023 [facility] Occupat ional Health - [...] Procedure [facility] [address] [place] [address] 11/18/2024 10:15 AM EDT Office Visit [facility] [address] [place] [address] Harvey Bryan DO [address] [place] [address] 02/13/2025 9:40 AM EST Office Visit [facility] [address] [place] [address] Adelaida Carrion, BRIANA [address] [place] [address] documented as of this encounter Visit Diagnoses Not on filedocumented in this encounter Additional Health Concerns Assessment Noted Time PHQ-9 Depression Total Score: 8 05/18/19 24 5:00 PM EST documented as of this encounter Care Teams Cork Cutter Relationship Specialty Start Date End Date José Luis Roberts MD [address] [place] [address] PCP - General Family Medicine 02/02/24 Miriam Suarez DO [address] [place] [address] Referring Physician Neurology 06/29/23 Adelaida Carrion, BRIANA [address] [place] [address] Nurse Practitioner Family Medicine 01/27/24 Bong Rosado MA [address] [place] [address] Family Medicine 02/12/24 Juany Leggett PA [address] [place] [address] Physician County Manager Neurology 07/26/24 documented as of this encounter
--- OUTSIDE RECORDS SUMMARY | 2024-11-14 21:31 | XMS_ITS | Encounter Summary ---
Author Organization [facility] Address [address] [place] [address] Care Team Providers Care Armhole Sewer Name Role Phone Miriam Suarez Unavailable [phone] Adelaida Carrion NP Unavailable [phone] José Luis Roberts MD Primary Care Provider Bong Rosado MA Unavailable [phone] Juany Leggett Unavailable Encounter Details Date Type Department Care Team (Late st Contact Info) Description 10/10/2024 Abstract [facility] [address] [place] [address] Adelaida Carrion, BRIANA [address] [place] [address] Social History Tobacco Use Types [...] How often do you attend advent or episcopal serv ices? Never 08/16/2023 Do you belong [...] Recorded Patient Health Questionnaire-2 Score 2 09/21/2023 [facility] of Occupat ional Health - Occupational Stress [...] No 08/16/2023 Housing Stability Vital Sign Answer Daovn e Recorded In the last 12 months, [...] Procedure [facility] [address] [place] [address] 11/18/2024 10:15 AM EDT Office Visit [facility] [address] [place] [address] Harvey Bryan DO [address] [place] [address] 02/13/2025 9:40 AM EST Office Visit [facility] [address] [place] [address] Adelaida Carrion, BRIANA [address] [place] [address] documented as of this encounter Visit Diagnoses Not on filedocumented in this encounter Additional Health Concerns Assessment Noted Time PHQ-9 Depression Total Score: 8 05/18/19 24 5:00 PM EST documented as of this encounter Care Teams Armhole Sewer Relationship Specialty Start Date End Date José Luis Roberts MD [address] [place] [address] PCP - General Family Medicine 02/02/24 Miriam Suarez DO [address] [place] [address] Referring Physician Neurology 06/29/23 Adelaida Carrion, BRIANA [address] [place] [address] Nurse Practitioner Family Medicine 01/27/24 Bong Rosado MA [address] [place] [address] Family Medicine 02/12/24 Juany Leggett PA [address] [place] [address] Physician Assurance Manager Neurology 07/26/24 documented as of this encounter
--- OUTSIDE RECORDS SUMMARY | 2024-11-14 21:31 | XMS_ITS | Encounter Summary ---
Author Organization [facility] Address [address] [place] [address] Care Team Providers Care Bundle Shaker Name Role Phone Adelaida Carrion NP Unavailable [phone] José Luis Roberts MD Primary Care Provider [phone] Miriam Suarez DO Unavailable [phone] Mathew Parra LOGISTICS SUPPLY OFFICER Unavailable Unavailable Diana De Leon LPN Unavailable Unallocated, [facility] Provider Primary Care Provi kellee Adelaida Carrion NP Unavailable [phone] José Luis Roberts MD Primary Care Provider [phone] Bong Rosado MA Unavailable [phone] Juany Leggett Unavailable Encounter Details Date Type Department Care Team (Late st Contact Info) Description 09/02/2023 Orders Only [facility] [address] [place] [address] Shaikh Alberto MD [address] [place] [address] Social History Tobacco Use Types [...] How often do you attend shinto or oriental orthodox serv ices? Never 08/16/2023 [...] Recorded Patient Health Questionnaire-2 Score 0 08/17/2023 [facility] of Occupat [...] Imaging [address] [place] [address] 11/18/2024 10:15 AM EDT Office Visit [facility] [address] [place] [address] PocosHarvey, DO [address] [place] [address] 02/13/2025 9:40 AM EST Office Visit [facility] [address] [place] [address] Adelaida Carrion NP [address] [place] [address] documented as of this encounter [...] documented as of this encounter Care Teams Bundle Shaker Relationship Specialty Start Date End Date José Luis Roberts MD [address] [place] [address] PCP - General Family Medicine 05/18/23 01/26/24 Unallocated, [facility] MD Mariela [address] [place] [address] PCP - General Family Medicine 01/27/24 02/01/24 José Luis Roberts MD [address] [place] [address] PCP - General Family Medicine 02/02/24 Adelaida Carrion NP Referring Physician Nurse Practitioner 10/14/22 Miriam Suarez DO [address] [place], [place] [address] Referring Physician Neurology 06/29/23 Mathew Parra LPN Licensed Practical Nurse Family Medicine 07/23/23 Diana De Leon LPN [address] [place] [address] Licensed Practical Nurse Family Medicine 12/18/2302/11 Adelaida Carrion NP [address] [place] [address] Nurse Practitioner Family Medicine 01/27/24 Bong Rosado, [place] [address] [place] [address] Family Medicine 02/12/24 Juany Leggett PA [address] [place], [place] [address] Physician Lathe Tender Neurology 07/26/24 documented as of this encounter
--- OUTSIDE RECORDS SUMMARY | 2024-11-14 21:31 | XMS_ITS | Encounter Summary ---
Author Organization [facility] Address [address] [place] [address] Care Team Providers Care Dyehouse Worker Name Role Phone Miriam Suarez Unavailable [phone] Adelaida Carrion NP Unavailable [phone] José Luis Roberts MD Primary Care Provider [phone] Bong Rosado MA Unavailable [phone] Juany Leggett Unavailable Encounter Details Date Type Department Care Team (Late st Contact Info) Description 11/14/2024 Bamboo flowsheet [facility] [address] [place] [address] Adelaida Carrion, BRIANA [address] [place] [address] Social History Tobacco Use Types [...] How often do you attend yazidi or zoroastrian serv ices? Never 08/16/2023 Do [...] Recorded Patient Health Questionnaire-2 Score 2 09/21/2023 [facility] of Occupat ional Health - Occupational Stress [...] Procedure [facility] [address] [place] [address] 11/18/2024 10:15 AM EDT Office Visit [facility] [address] [place] [address] Harvey Bryan DO [address] [place] [address] 02/13/2025 9:40 AM EST Office Visit [facility] [address] [place] [address] Adelaida Carrion NP [address] [place] [address] documented as of this encounter Visit Diagnoses Not on filedocumented in this encounter Additional Health Concerns Assessment Noted Time PHQ-9 Depression Total Score: 8 05/18/19 24 5:00 PM EST documented as of this encounter Care Teams Dyehouse Worker Relationship Specialty Start Date End Date José Luis Roberts MD [address] [place] [address] PCP - General Family Medicine 02/02/24 Miriam Suarez DO [address] [place] [address] Referring Physician Neurology 06/29/23 Adelaida Carrion NP [address] [place] [address] Nurse Practitioner Family Medicine 01/27/24 Bong Rosado MA [address] [place] [address] Family Medicine 02/12/24 Juany Leggett PA [address] [place] [address] Physician Cutting Machine Tender Decorative Neurology 07/26/24 documented as of this encounter
--- OUTSIDE RECORDS SUMMARY | 2024-11-14 21:32 | XMS_ITS | Encounter Summary ---
Author Organization [facility] Address [address] [place] [address] Care Team Providers Care Handmade Tile Artist Name Role Phone Miriam Suarez Unavailable [phone] Adelaida Carrion NP Unavailable [phone] José Luis Roberts MD Primary Care Provider [phone] Bong Roasdo MA Unavailable [phone] Juany Leggett Unavailable Encounter Details Date Type Department Care Team (Late st Contact Info) Description 10/10/2024 Abstract [facility] [address] [place] [address] Adelaida Carrion, BRIANA [address] [place] [address] Social History Tobacco Use Types [...] declined 08/16/2023 How often do you attend spiritism or holiness serv ices? Never 08/16/2023 Do you belong to any clubs o r organizations such as spiritism groups, unions, fraternal or athletic groups, or [...] Patient Health Questionnaire-2 Score 2 09/21/2023 [facility] of Occupat ional Health - Occupational [...] Procedure [facility] [address] [place] [address] 11/18/2024 10:15 AM EDT Office Visit [facility] [address] [place] [address] Harvey Bryan DO [address] [place] [address] 02/13/2025 9:40 AM EST Office Visit [facility] [address] [place] [address] Adelaida Carrion, BRIANA [address] [place] [address] documented as of this encounter Visit Diagnoses Not on filedocumented in this encounter Additional Health Concerns Assessment Noted Time PHQ-9 Depression Total Score: 8 05/18/19 24 5:00 PM EST documented as of this encounter Care Teams Handmade Tile Artist Relationship Specialty Start Date End Date José Luis Roberts MD [address] [place] [address] PCP - General Family Medicine 02/02/24 Miriam Suarez DO [address] [place] [address] Referring Physician Neurology 06/29/23 Adelaida Carrion, BRIANA [address] [place] [address] Nurse Practitioner Family Medicine 01/27/24 Bong Rosado MA [address] [place] [address] Family Medicine 02/12/24 Juany Leggett PA [address] [place] [address] Physician Client Services Associate Neurology 07/26/24 documented as of this encounter
--- OUTSIDE RECORDS SUMMARY | 2024-11-14 21:32 | XMS_ITS | Encounter Summary ---
Author Organization [facility] Address [address] [place] [address] Care Team Providers Care Door Technician Name Role Phone Adelaida Carrion NP Unavailable [phone] José Luis Roberts MD Primary Care Provider [phone] Miriam Suarez DO Unavailable [phone] Mathew Parra PRINTING PRESS MACHINE OPERATOR Unavailable Unavailable Diana De Leon LPN Unavailable Unallocated, Noms Provider Primary Care Provi kellee Adelaida Carrion NP Unavailable [phone] José Luis Roberts MD Primary Care Provider [phone] Bong Rosado MA Unavailable [phone] Juany Leggett Unavailable Encounter Details Date Type Department Care Team (Late st Contact Info) Description 08/19/2023 Clinisync Result Encounter [facility] External Department Unsolicited Adelaida Carrion NP [address] [place] [address] Social History Tobacco Use Types Packs/Day Years [...] How often do you attend tenriism or uatsdin serv ices? Never 08/16/2023 Do [...] Recorded Patient Health Questionnaire-2 Score 0 08/17/2023 [facility] of Occupat ional Health [...] Imaging [address] [place] [address] 11/18/2024 10:15 AM EDT Office Visit [facility] [address] [place] [address] Harvey Bryan, DO [address] [place] [address] 02/13/2025 9:40 AM EST Office Visit [facility] [address] [place] [address] Adelaida Carrion, BRIANA [address] [place] [address] documented as of this encounter Procedures Procedure Name Priority Date/Time Associated Diagnosis Comments CT LUNG SCREENING LOW DOSE 08/19/2023 6:06 AM EDT documented in this encounter Results * CT LUNG SCREENING LOW DOSE (08/19/2023 6:06 AM EDT) Anatomical Region Laterality Modality Other 08/19/2023 6:06 AM EDT Narrative 08/19/2023 6:09 AM EDT The [address] [address] [address] Scan Report Signed Patient: NASIM BE MR#: [id number] : 1960 Acct:[id number] Age/Sex: 62 / F ADM Date: 08/18/23 Loc: CT Attending Dr: Adelaida Carrino NP Ordering Physician: Adelaida Carrion NP Date of Service: 08/18/23 Procedure(s): CT lung screening low-dose Accession Number(s): [id number] cc: Adelaida Carrion NP [address] [id number] Patient Name: NASIM BE MRN: [facility]:[id number] date: 1960 Sex: F Assigned Patient Location: CT Current Patient Location: Accession/Order Number: [id number] Exam Date: 08/18/2023 13:28 Report Date: 08/19/2023 [...] M.D. Signed By: 08/19/23608 DD/ 5 TD/TT: Manufacture Specialist: Procedure Note Radiology, Radiologist, MD - 08/19/[address] [address] [address] Scan Report Signed Patient: NASIM BE LMR#: [id number] : 1960cct:[id number] Age/Sex: 62 / FADM Date: 08/18/23 Loc: CT Attending Dr: Adelaida Carrion SHELLFISH WEIGHER Ordering Physician: Adelaida Carrion NP Date of Service: 08/18/23 Procedure(s): CT lung screening low-dose Accession Number(s): [id number] cc: Adelaida Carrion NP [place] [id number] Patient Name: NASIM BE MRN: [facility]:[id number] date: 1960 Sex: F Assigned Patient Location: CT Current Patient Location: Accession/Order Number: [id number] Exam Date: 08/18/2023 13:28 Report Date: 08/19/2023 [...] Dhillon M.D. Signed By:08/19/23608 DD/ 5 TD/TT: Manufacture Specialist: Adelaida Carrion NP [facility] Final Result documented in this encounter Visit Diagnoses Not on filedocumented in this encounter Additional Health Concerns Assessment Noted Time PHQ-9 Depression Total Score: 8 05/18/19 24 5:00 PM EST documented as of this encounter Care Teams Door Technician Relationship Specialty Start Date End Date José Luis Roberts MD [address] [place] [address] PCP - General Family Medicine 05/18/23 01/26/24 Unallocated, Johan Sierra MD [address] [place] [address] PCP - General Family Medicine 01/27/24 02/01/24 José Luis Roberts MD [address] [place] [address] PCP - General Family Medicine 02/02/24 Adelaida Carrion NP Referring Physician Nurse Practitioner 10/14/22 Miriam Suarez DO [address] [place] [address] Referring Physician Neurology 06/29/23 Mathew Parra LPN Licensed Practical Nurse Family Medicine 07/23/23 Diana De Leon LPN [address] [place] [address] Licensed Practical Nurse Family Medicine 12/18/2302/11 Adelaida Carrion NP [address] [place]é [place] [address] Nurse Practitioner Family Medicine 01/27/24 Bong Rosado, [place] [address] [place], [place] [address] Family Medicine 02/12/24 Juany Leggett PA [address] [facility] [address] [place] [address] Physician Online Editor Neurology 07/26/24 documented as of this encounter
--- OUTSIDE RECORDS SUMMARY | 2024-11-14 21:32 | XMS_ITS | Encounter Summary ---
Author Organization [facility] Address [address] [place] [address] Care Team Providers Care Crumb Packer Name Role Phone Adelaida Carrion NP Unavailable [phone] José Luis Roberts MD Primary Care Provider [phone] José Luis Roberts MD Primary Care Provider [phone] Miriam Suarez DO Unavailable [phone] [place], Ardana MAINSPRING FORMER BRACE END Unavailable Unavailable Aida Ardana MAINSPRING FORMER BRACE END Unavailable Unavailable Diana De Leon MAINSPRING FORMER BRACE END Unavailable Unallocated, Noms Provider Primary Care Provi kellee Adelaida Carrion NP Unavailable [phone] José Luis Roberts MD Primary Care Provider [phone] Bong Rosado MA Unavailable [phone] Juany Leggett Unavailable Encounter Details Date Type Department Care Team (Late st Contact Info) Description 04/09/2023 Abstract [facility] [address] [place] [address] Adelaida Carrion NP [address] [place] [address] Social History Tobacco Use Types Packs/Day Years [...] 11/17/2024 8:45 AM EDT Ancillary Procedure [facility] [address] [place] [address] 11/18/2024 10:15 AM EDT Office Visit [facility] [address] [place] [address] Harvey Bryan, [address] [place] [address] 02/13/2025 9:40 AM EST Office Visit [facility] [address] [place] [address] Adelaida Carrion, BRIANA [address] [place] [address] documented as of this encounter Visit Diagnoses Not on filedocumented in this encounter Care Teams Crumb Packer Relationship Specialty Start Date End Date José Luis Roberts MD PCP - General Family Medicine 10/14/22 05/17/23 José Luis Roberts MD [address] [place] [address] PCP - General Family Medicine 05/18/23 01/26/24 Unallocated, Johan Sierra MD [address] [place] [address] PCP - General Family Medicine 01/27/24 02/01/24 José Luis Roberts MD [address] [place] [address] PCP - General Family Medicine 02/02/24 Adelaida Carrion NP Referring Physician Nurse Practitioner 10/14/22 Miriam Suarez DO [address] [place], [place] [address] Referring Physician Neurology 06/29/23 Mathew Parra LPN Registered Nurse Family Medicine 07/07/23 07/08/23 Mathew Parra LPN Licensed Practical Nurse Family Medicine 07/23/23 Diana De Leon LPN [address] [place] [address] Licensed Practical Nurse Family Medicine 12/18/2302/11 Adelaida Carrion NP [address] [place] [address] Nurse Practitioner Family Medicine 01/27/24 Bong Rosado MA [address] [place] [address] Family Medicine 02/12/24 Juany Leggett PA [address] [place], [place] [address] Physician Radiographer Technologist Neurology 07/26/24 documented as of this encounter
--- OUTSIDE RECORDS SUMMARY | 2024-11-14 21:32 | XMS_ITS | Encounter Summary ---
Author Organization [facility] Address [address] [place] [address] Care Team Providers Care Stamp Press Operator Name Role Phone Adelaida Carrion NP Unavailable [phone] José Luis Roberts MD Primary Care Provider [phone] Miriam Suarez DO Unavailable [phone] Mathew Parra BAND SAW MARKER Unavailable Unavailable Diana De Leon LPN Unavailable Unallocated, Noms Provider Primary Care Provi kellee Adelaida Carrion NP Unavailable [phone] José Luis Roberts MD Primary Care Provider [phone] Bong Rosado MA Unavailable [phone] Juany Leggett Unavailable Encounter Details Date Type Department Care Team (Late st Contact Info) Description 09/01/2023 Orders Only [facility] [address] [place] [address] Shaikh Alberto MD [address] [place] [address] Social History Tobacco Use Types [...] declined 08/16/2023 How often do you attend sabianist or bahai serv ices? Never 08/16/2023 Do you belong to any clubs o r organizations such as sabianist groups, unions, fraternal or athletic groups, or [...] Recorded Patient Health Questionnaire-2 Score 0 08/17/2023 [facility] [...] Imaging [address] [place] [address] 11/18/2024 10:15 AM EDT Office Visit [facility] [address] [place] [address] PocosHarvey, DO [address] [place] [address] 02/13/2025 9:40 AM EST Office Visit [facility] [address] [place] [address] Adelaida Carrion NP [address] [place] [address] documented as of this encounter Procedures Procedure Name Priority Date/Time Associated Diagnosis Comments XR ANKLE 3+ VIEWS RIGHT Routine 08/31/2023 7:41 AM EDT MRI HEAD/BRAIN WO CONTRAS Routine 08/24/2023 10:43 AM EDT documented in this encounter Results * XR ankle 3+ views right (08/31/2023 7:41 AM EDT) Anatomical Region Laterality Modality Lower Extremities, Ankle Right Radiogr aphic Imaging Shaikh Dolly JAIMES IMG XR PROCEDURES Final [...] documented as of this encounter Care Teams Stamp Press Operator Relationship Specialty Start Date End Date José Luis Roberts MD [address] [place] [address] PCP - General Family Medicine 05/18/23 01/26/24 Unallocated, Johan Sierra MD [address] [place] [address] PCP - General Family Medicine 01/27/24 02/01/24 José Luis Roberts MD [address] [place] [address] PCP - General Family Medicine 02/02/24 Adelaida Carrion NP Referring Physician Nurse Practitioner 10/14/22 Miriam Suarez DO [address] [place] [address] Referring Physician Neurology 06/29/23 Mathew Parra LPN Licensed Practical Nurse Family Medicine 07/23/23 Diana De Leon LPN [address] [place] [address] Licensed Practical Nurse Family Medicine 12/18/2302/11 Adelaida Carrion NP [address] [place] [address] Nurse Practitioner Family Medicine 01/27/24 Bong Rosado, [place] [address] [place] [address] Family Medicine 02/12/24 Juany Leggett PA [address] [place] [address] Physician Can Intake Worker Neurology 07/26/24 documented as of this encounter
--- OUTSIDE RECORDS SUMMARY | 2024-11-14 21:32 | XMS_ITS | Encounter Summary ---
Author Organization [facility] Address [address] [place] [address] Care Team Providers Care Chest Painting And Sealing Supervisor Name Role Phone Miriam Suarez DO Unavailable [phone] Adelaida Carrion NP Unavailable [phone] José Luis Roberts MD Primary Care Provider Bong Rosado MA Unavailable [phone] Juany Leggett Unavailable Encounter Details Date Type Department Care Team (Late st Contact Info) Description 10/24/2024 Orders Only [facility] [address] [place] [address] Adelaida Carrion, BRIANA [address] [place] [address] Social History Tobacco Use Types Packs/Day Years [...] often do you attend oriental orthodox or bahai serv ices? Never 08/16/2023 [...] [facility] - Occupational Stress Questionnaire [...] EDT Ancillary Procedure [facility] [address] [place] [address] 11/18/2024 10:15 AM EDT Office Visit [facility] [address] [place] [address] Havrey Bryan DO [address] [place] [address] 02/13/2025 9:40 AM EST Office Visit [facility] [address] [place] [address] Adelaida Carrion, BRIANA [address] [place] [address] documented as of this encounter Procedures Procedure Name Priority Date/Time Associated Diagnosis Comments DEXA BONE DENSITY Routine 10/24/2024 1:17 PM EDT documented in this encounter Results * DEXA bone density (10/24/2024 1:17 PM EDT) Anatomical Region Laterality Modality Body Radiographic Nelda ging Adelaida Carrion ENGINEER IMG DXA PROCEDURES Final Result documented in this encounter Visit Diagnoses Not on filedocumented in this encounter Additional Health Concerns Assessment Noted Time PHQ-9 Depression Total Score: 8 05/18/19 24 5:00 PM EST documented as of this encounter Care Teams Chest Painting And Sealing Supervisor Relationship Specialty Start Date End Date José Luis Roberts MD [address] [place] [address] PCP - General Family Medicine 02/02/24 Miriam Suarez DO [address] [place] [address] Referring Physician Neurology 06/29/23 Adelaida Carrion, BRIANA [address] [place] [address] Nurse Practitioner Family Medicine 01/27/24 Bong Rosado, MA [address] [place] [address] Family Medicine 02/12/24 Juany Leggett PA [address] [place] [address] Physician Power Plant Operators Supervisor Neurology 07/26/24 documented as of this encounter
--- OUTSIDE RECORDS SUMMARY | 2024-11-14 21:32 | XMS_ITS | Encounter Summary ---
Author Organization [facility] Address [address] [place] [address] Care Team Providers Care Assistant Film Editor Name Role Phone Adelaida Carroin NP Unavailable [phone] José Luis Roberts MD Primary Care Provider [phone] Miriam Suarez DO Unavailable [phone] Mathew Parra PETROPHYSICAL ENGINEER Unavailable Unavailable Diana De Leon PETROPHYSICAL ENGINEER Unavailable Unallocated, Noms Provider Primary Care Provi kellee Adelaida Carrion NP Unavailable [phone] José Luis Roberts MD Primary Care Provider [phone] Bong Rosado MA Unavailable [phone] Juany Leggett Unavailable Encounter Details Date Type Department Care Team (Late st Contact Info) Description 07/14/2023 Orders Only [facility] [address] [place] [address] Adelaida Carrion NP [address] [place] [address] Social History Tobacco Use Types [...] Never 05/18/2023 How often do you attend mosque or amish serv ices? Never 05/18/2023 Do you belong [...] Recorded Patient Health Questionnaire-2 Score 0 07/07/2023 [employer] [employer] [facility] ional [facility] - Occupational Stress [...] in a care home (including now)? No 05/18/2023 Comments Unknown [...] 11/17/2024 8:45 AM EDT Ancillary Procedure [facility] [address] [place] [address] 11/18/2024 10:15 AM EDT Office Visit [facility] [address] [place] [address] Harvey Bryan, DO [address] [place] [address] 02/13/2025 9:40 AM EST Office Visit [facility] [address] [place] [address] Adelaida Carrion, BRIANA [address] [place] [address] documented as of this encounter Procedures Procedure Name Priority Date/Time Associated Diagnosis Comments XR CHEST 1 VIEW Routine 07/11/2023 9:09 AM EDT documented in this encounter Results * XR chest 1 view (07/11/2023 9:09 AM EDT) Anatomical Region Laterality Modality Chest Radiographic Nelda ging us Adelaida Carrion AIRLINE MANAGER IMG XR PROCEDURES Final Result documented in this encounter Visit Diagnoses Not on filedocumented in this encounter Additional Health Concerns Assessment Noted Time PHQ-9 Depression Total Score: 8 05/18/19 24 5:00 PM EST documented as of this encounter Care Teams Assistant Film Editor Relationship Specialty Start Date End Date José Luis Roberts MD [address] [place] [address] PCP - General Family Medicine 05/18/23 01/26/24 Unallocated, Johan Sierra MD [address] [place] [address] PCP - General Family Medicine 01/27/24 02/01/24 José Luis Roberts MD [address] [place] [address] PCP - General Family Medicine 02/02/24 Adelaida Carrion NP Referring Physician Nurse Practitioner 10/14/22 Miriam Suarez DO [address] [place], [place] [address] Referring Physician Neurology 06/29/23 Mathew Parra LPN Licensed Practical Nurse Family Medicine 07/23/23 Diana De Leon LPN [address] [place], [place] [address] Licensed Practical Nurse Family Medicine 12/18/2302/11 Adelaida Carrion NP [address] [place] [address] Nurse Practitioner Family Medicine 01/27/24 Bong Rosado, [place] [address] [place] [address] Family Medicine 02/12/24 Juany Leggett PA [address] [place] [address] Physician Skates Operator Neurology 07/26/24 documented as of this encounter
--- OUTSIDE RECORDS SUMMARY | 2024-11-14 21:32 | XMS_ITS | Encounter Summary ---
Author Organization [facility] Address [address] [place] [address] Care Team Providers Care Charge Lpn Name Role Phone Miriam Suarez DO Unavailable [phone] Adelaida Carrion NP Unavailable [phone] José Luis Roberts MD Primary Care Provider Bong Rosado MA Unavailable [phone] Juany Leggett Unavailable Encounter Details Date Type Department Care Team (Late st Contact Info) Description 10/13/2024 Orders Only [facility] [address] [place] [address] Adelaida Carrion, BRIANA [address] [place] [address] Social History Tobacco Use Types Packs/Day Years [...] How often do you attend anglican or religion serv ices? Never 08/16/2023 Do [...] 09/21/2023 [facility] - Occupational Stress Questionnaire Answer [...] EDT Ancillary Procedure [facility] [address] [place] [address] 11/18/2024 10:15 AM EDT Office Visit [facility] [address] [place] [address] Harvey Bryan DO [address] [place] [address] 02/13/2025 9:40 AM EST Office Visit [facility] [address] [place] [address] Adelaida Carrion, BRIANA [address] [place] [address] documented as of this encounter Procedures [...] documented as of this encounter Care Teams Charge Lpn Relationship Specialty Start Date End Date José Luis Roberts MD [address] [place] [address] PCP - General Family Medicine 02/02/24 Miriam Suarez DO [address] [place] [address] Referring Physician Neurology 06/29/23 Adelaida Carrion NP [address] [place] [address] Nurse Practitioner Family Medicine 01/27/24 Bong Rosado MA [address] [place] [address] Family Medicine 02/12/24 Juany Leggett PA [address] [place] [address] Physician Visual C Developer Neurology 07/26/24 documented as of this encounter
--- OUTSIDE RECORDS SUMMARY | 2024-11-14 21:32 | XMS_ITS | Encounter Summary ---
Author Organization [facility] Address [address] [place] [address] Care Team Providers Care Naphthalene Operator Name Role Phone Adelaida Carrion NP Unavailable [phone] José Luis Roberts MD Primary Care Provider [phone] Miriam Suarez DO Unavailable [phone] Mathew Parra RAW SCALES OPERATOR Unavailable Unavailable Diana De Leon RAW SCALES OPERATOR Unavailable Unallocated, Noms Provider Primary Care Provi kellee Adelaida Carrion NP Unavailable [phone] José Luis Roberts MD Primary Care Provider [phone] Bong Rosado MA Unavailable [phone] Juany Leggett Unavailable Encounter Details Date Type Department Care Team (Late st Contact Info) Description 08/25/2023 Orders Only [facility] [address] [place] [address] Adelaida Carrion NP [address] [place] [address] Social History Tobacco Use Types [...] Patient Health Questionnaire-2 Score 0 08/17/2023 [facility] Occupat ional Health - [...] Imaging [address] [place] [address] 11/18/2024 10:15 AM EDT Office Visit [facility] [address] [place] [address] PocosHarvey, DO [address] [place] [address] 02/13/2025 9:40 AM EST Office Visit [facility] [address] [place] [address] Adelaida Carrion NP [address] [place] [address] documented as of this encounter Procedures Procedure Name Priority Date/Time Associated Diagnosis Comments ELECTROCARDIOGRAM REPORT Routine 024 8:39 AM EDT documented in this encounter Results * Electrocardiogram Report (08/24/2023 8:39 AM EDT) Adelaida Carrion LINUX KERNEL ENGINEER IN CLINIC/BEDSIDE ORDERABLES Fi nal Result documented in this encounter Visit Diagnoses Not on filedocumented in this encounter Additional Health Concerns Assessment Noted Time PHQ-9 Depression Total Score: 8 05/18/19 24 5:00 PM EST documented as of this encounter Care Teams Naphthalene Operator Relationship Specialty Start Date End Date José Luis Roberts MD [address] [place] [address] PCP - General Family Medicine 05/18/23 01/26/24 Unallocated, Noms MD Mariela [address] [place] [address] PCP - General Family Medicine 01/27/24 02/01/24 José Luis Roberts MD [address] [place] [address] PCP - General Family Medicine 02/02/24 Adelaida Carrion NP Referring Physician Nurse Practitioner 10/14/22 Miriam Suarez DO [address] [place], [place] [address] Referring Physician Neurology 06/29/23 Mathew Parra LPN Licensed Practical Nurse Family Medicine 07/23/23 Diana De Leon LPN [address] [place], [place] [address] Licensed Practical Nurse Family Medicine 12/18/2302/11 Adelaida Carrion NP [address] [place] [address] Nurse Practitioner Family Medicine 01/27/24 Bong Rosado, [place] [address] [place] [address] Family Medicine 02/12/24 Juany Leggett PA [address] [place], [place] [address] Physician Heat Treat Puller Neurology 07/26/24 documented as of this encounter
--- OUTSIDE RECORDS SUMMARY | 2024-11-14 21:32 | XMS_ITS | Encounter Summary ---
Author Organization [facility] Address [address] [place] [address] Care Team Providers Care Hospital Liaison Name Role Phone Adelaida Carrion NP Unavailable [phone] José Luis Roberts MD Primary Care Provider [phone] José Luis Roberts MD Primary Care Provider [phone] Miriam Suarez DO Unavailable [phone] [place], Ardana DEVELOPER PROVER UPHOLSTERING Unavailable Unavailable Aida Ardana DEVELOPER PROVER UPHOLSTERING Unavailable Unavailable Diana De Leon DEVELOPER PROVER UPHOLSTERING Unavailable Unallocated, Noms Provider Primary Care Provi kellee Adelaida Carrion NP Unavailable [phone] José Luis Roberts MD Primary Care Provider [phone] Bong Rosado MA Unavailable [phone] Juany Leggett Unavailable Encounter Details Date Type Department Care Team (Late st Contact Info) Description 03/26/2023 Clinisync Result Encounter [facility] External Department Unsolicited Adelaida Carrion NP [address] [place]é [place] [address] Social History Tobacco Use Types Packs/Day Years [...] Imaging [address] [place] [address] 11/18/2024 10:15 AM EDT Office Visit [facility] [address] [place] [address] Harvey Bryan, DO [address] [place] [address] 02/13/2025 9:40 AM EST Office Visit [facility] [address] [place] [address] Adelaida Carrion NP [address] [place] [address] documented as of this encounter Procedures Procedure Name Priority Date/Time Associated Diagnosis Comments XR FOOT LT MIN 3V 03/26/2023 8:1 4 AM EST documented in this encounter Results * XR FOOT LT MIN 3V (03/26/2023 8:14 AM EST) Anatomical Region Laterality Modality Other 03/26/2023 8:14 AM EST Narrative 03/26/2023 8:17 AM EST The [address] [address] XRay Report Signed Patient: NASIM BE MR#: [id number] : 1960 Acct:[id number] Age/Sex: 62 / F ADM Date: 03/25/23 Loc: RAD Attending Dr: Adelaida Carrion OPERATIONS INTELLIGENCE SUPERINTENDENT Ordering Physician: Adelaida Carrion NP Date of Service: 03/25/23 Procedure(s): XR foot LT min 3V Accession Number(s): [id number] cc: Adelaida Carrion NP The [place] [id number] Patient Name: NASIM BE MRN: [facility]:[id number] date: 1960 Sex: F Assigned Patient Location: RAD Current Patient Location: Accession/Order Number: [id number] Exam Date: 03/25/2023 15:34 Report Date: 03/26/2023 08:14 At the request of: ADELAIDA CARRION Procedure: XR foot LT min 3V PROCEDURE: XR foot LT min 3V DATE: 03/25/2023 2:34 PM TOOL/DIE MAKER COMPARISONS: None CLINICAL INDICATION: left foot pain [...] M.D. Signed By: 03/26/23816 DD/ 3 TD/TT: Animal Cruelty Investigator: Procedure Note Radiology, Radiologist, MD - 03/26/2023 [place] [address] XRay Report Signed Patient: NASIM BE LMR#: [id number] : 1960cct:[id number] Age/Sex: 62 / FADM Date: 03/25/23 Loc: RAD Attending Dr: Adelaida Carrion NP Ordering Physician: Adelaida Carrion NP Date of Service: 03/25/23 Procedure(s): XR foot LT min 3V Accession Number(s): [id number] cc: Adelaida Carrion NP [place] [id number] Patient Name: NASIM BE MRN: [id number] date: 1960 Sex: F Assigned Patient Location: [facility] Current Patient Location: Accession/Order Number: [id number] Exam Date: 03/25/2023 15:34 Report Date: 03/26/2023 08:14 At the request of: ADELAIDA CARRION Procedure: XR foot LT min 3V PROCEDURE: XR foot LT min 3V DATE: 03/25/2023 2:34 PM TOOL/DIE MAKER COMPARISONS: None CLINICAL INDICATION: left foot pain [...] Harris M.D. Signed By:03/26/23816 DD/ 3 TD/TT: Animal Cruelty Investigator: us Adelaida Carrion NP [facility] Final Result documented in this encounter Visit Diagnoses Not on filedocumented in this encounter Care Teams Hospital Liaison Relationship Specialty Start Date End Date José Luis Roberts MD PCP - General Family Medicine 10/14/22 05/17/23 José Luis Roberts MD [address] [place] [address] PCP - General Family Medicine 05/18/23 01/26/24 Unallocated, [facility] [place] [address] PCP - General Family Medicine 01/27/24 02/01/24 José Luis Roberts MD [address] [place] [address] PCP - General Family Medicine 02/02/24 Adelaida Carrion NP Referring Physician Nurse Practitioner 10/14/22 Miriam Suarez DO [address] [place], [place] [address] Referring Physician Neurology 06/29/23 Mathew Parra LPN Registered Nurse Family Medicine 07/07/23 07/08/23 Mathew Parra LPN Licensed Practical Nurse Family Medicine 07/23/23 Diana De Leon LPN [address] [place] [address] Licensed Practical Nurse Family Medicine 12/18/2302/11 Adelaida Carrion NP [address] [place] [address] Nurse Practitioner Family Medicine 01/27/24 Bong Rosado MA [address] [place] [address] Family Medicine 02/12/24 Juany Leggett PA [address] [place] [address] Physician Residential Nurse Neurology 07/26/24 documented as of this encounter
--- OUTSIDE RECORDS SUMMARY | 2024-11-14 21:32 | XMS_ITS | Encounter Summary ---
Author Organization [facility] Address [address] [place] [address] Care Team Providers Care Electrotype Molder Name Role Phone Adelaida Carrion NP Unavailable [phone] José Luis Roberts MD Primary Care Provider Miriam Suarez DO Unavailable [phone] Diana De Leon LPN Unavailable Unallocated, Noms Provider Primary Care Provi kellee Adelaida Carrion NP Unavailable [phone] José Luis Roberts MD Primary Care Provider Bong Rosado MA Unavailable [phone] Juany Leggett Unavailable Encounter Details Date Type Department Care Team (Late st Contact Info) Description 01/21/2024 Orders Only [facility] [address] [place] [address] Adelaida Carrion NP [address] [facility] [place] [address] Social History Tobacco Use Types [...] How often do you attend yarsani or protestant serv ices? Never 08/16/2023 Do [...] No 08/16/2023 Housing Stability Vital Sign Answer Dvaon e Recorded In the last 12 months, [...] Ancillary Procedure [facility] [address] [place] [address] 11/18/2024 10:15 AM EDT Office Visit [facility] [address] [place] [address] PocHarvey perston, DO [address] [place] [address] 02/13/2025 9:40 AM EST Office Visit [facility] [address] [place] [address] Adelaida Carrion NP [address] [place] [address] documented as of this encounter [...] documented as of this encounter Care Teams Electrotype Molder Relationship Specialty Start Date End Date José Luis Roberts MD [address] [place] [address] PCP - General Family Medicine 05/18/23 01/26/24 Unallocated, Noms MD Mariela [address] [place] [address] PCP - General Family Medicine 01/27/24 02/01/24 José Luis Roberts MD [address] [place] [address] PCP - General Family Medicine 02/02/24 Adelaida Carrion NP Referring Physician Nurse Practitioner 10/14/22 Miriam Suarez DO [address] [place], [place] [address] Referring Physician Neurology 06/29/23 Diana De Leon LPN [address] [place], [place] [address] Licensed Practical Nurse Family Medicine 12/18/2302/11 Adelaida Carrion NP [address] [place] [address] Nurse Practitioner Family Medicine 01/27/24 Bong Rosado, MI [address] [place] [address] Family Medicine 02/12/24 Juany Leggett PA [address] [place], [place] [address] Physician Guitar Repairer Neurology 07/26/24 documented as of this encounter
--- OUTSIDE RECORDS SUMMARY | 2024-11-14 21:32 | XMS_ITS | Encounter Summary ---
Author Organization [facility] Address [address] [place] [address] Care Team Providers Care Wet Process Miller Head Name Role Phone Miriam Suarez DO Unavailable [phone] Adelaida Carrion NP Unavailable [phone] José Luis Roberts MD Primary Care Provider [phone] Bong Rosado MA Unavailable [phone] Juany Leggett Unavailable Encounter Details Date Type Department Care Team (Latest Contact Info) Description 11/11/2024 Travel Social History Tobacco Use Types Packs/Day Years [...] How often do you attend sikhism or judaism serv ices? Never 08/16/2023 Do [...] Recorded Patient Health Questionnaire-2 Score 2 09/21/2023 [facility] - Occupational Stress Questionnaire Answer Date [...] EDT Ancillary Procedure [facility] [address] [place] [address] 11/18/2024 10:15 AM EDT Office Visit [facility] [address] [place] [address] Harvey Bryan, DO [address] [place] [address] 02/13/2025 9:40 AM EST Office Visit [facility] [address] [place] [address] Adelaida Carrion NP [address] [place] [address] documented as of this encounter Visit Diagnoses Not on filedocumented in this encounter Additional Health Concerns Assessment Noted Time PHQ-9 Depression Total Score: 8 05/18/19 24 5:00 PM EST documented as of this encounter Care Teams Wet Process Miller Head Relationship Specialty Start Date End Date José Luis Roberts MD [address] [place] [address] PCP - General Family Medicine 02/02/24 Miriam Suarez DO [address] [place] [address] Referring Physician Neurology 06/29/23 Adelaida Carrion NP [address] [place] [address] Nurse Practitioner Family Medicine 01/27/24 Bong Rosado MA [address] [place] [address] Family Medicine 02/12/24 Juany Leggett PA [address] [place] [address] Physician Refrigerating Technician Neurology 07/26/24 documented as of this encounter
--- OUTSIDE RECORDS SUMMARY | 2024-11-14 21:32 | XMS_ITS | Encounter Summary ---
Author Organization [facility] Address [address] [facility] [place] [address] Care Team Providers Care Salvage Determiner Name Role Phone Adelaida Carrion NP Unavailable [phone] José Luis Roberts MD Primary Care Provider [phone] José Luis Roberts MD Primary Care Provider [phone] Miriam Suarez DO Unavailable [phone] [place], Ardana SALES TEAM LEADER Unavailable Unavailable Aida Ardana SALES TEAM LEADER Unavailable Unavailable Diana De Leon SALES TEAM LEADER Unavailable Unallocated, Noms Provider Primary Care Provi kellee Adelaida Carrion MANAGEMENT TRAINEE Unavailable [phone] José Luis Roberts MD Primary Care Provider [phone] Bong Rosado MA Unavailable [phone] Juany Leggett Unavailable Encounter Details Date Type Department Care Team (Late st Contact Info) Description 01/23/2023 Abstract [facility] [address] [place] [address] Travon Hines PA [address] [place] [address] Social History Tobacco Use Types [...] Description 11/17/2024 8:45 AM EDT Ancillary Procedure [facility] [address] [place] [address] 11/18/2024 10:15 AM EDT Office Visit [facility] [address] [place] [address] Harvey Bryan, DO [address] [place] [address] 02/13/2025 9:40 AM EST Office Visit [facility] [address] [place] [address] Adelaida Carrion, BRIANA [address] [place] [address] documented as of this encounter Visit Diagnoses Not on filedocumented in this encounter Care Teams Salvage Determiner Relationship Specialty Start Date End Date José Luis Roberts MD PCP - General Family Medicine 10/14/22 05/17/23 José Luis Roberts MD [address] [place] [address] PCP - General Family Medicine 05/18/23 01/26/24 Unallocated, Johan Sierra MD [address] [place] [address] PCP - General Family Medicine 01/27/24 02/01/24 José Luis Roberts MD [address] [place] [address] PCP - General Family Medicine 02/02/24 Adelaida Carrion NP Referring Physician Nurse Practitioner 10/14/22 Miriam Suarez DO [address] [place], [place] [address] Referring Physician Neurology 06/29/23 Mathew Parra LPN Registered Nurse Family Medicine 07/07/23 07/08/23 Mathew Parra LPN Licensed Practical Nurse Family Medicine 07/23/23 Diana De Leon LPN [address] [place] [address] Licensed Practical Nurse Family Medicine 12/18/2302/11 Adelaida Carrion NP [address] [place] [address] Nurse Practitioner Family Medicine 01/27/24 Bong Rosado MA [address] [place] [address] Family Medicine 02/12/24 Juany Leggett PA [address] [place] [address] Physician Tire Recapper Neurology 07/26/24 documented as of this encounter
--- OUTSIDE RECORDS SUMMARY | 2024-11-14 21:32 | XMS_ITS | Encounter Summary ---
Author Organization [facility] Address [address] [facility] [place] [address] Care Team Providers Care Numerical Control Router Operator Name Role Phone Adelaida Carrion NP Unavailable [phone] José Luis Roberts MD Primary Care Provider [phone] José Luis Roberts MD Primary Care Provider [phone] Miriam Suarez DO Unavailable [phone] [place], Ardana DEVELOPMENT SYSTEM EFFICIENCY MANAGER Unavailable Unavailable Aida Ardana DEVELOPMENT SYSTEM EFFICIENCY MANAGER Unavailable Unavailable Diana De Leon DEVELOPMENT SYSTEM EFFICIENCY MANAGER Unavailable Unallocated, Noms Provider Primary Care Provi kellee Adelaida Carrion DEVELOPER ANALYST Unavailable [phone] Joés Luis Roberts MD Primary Care Provider [phone] Bong Rosado MA Unavailable [phone] Juany Leggett Unavailable Encounter Details Date Type Department Care Team (Late st Contact Info) Description 01/09/2023 Abstract [facility] [address] [place] [address] Travon Hines PA [address] [place] [address] Social History Tobacco Use Types [...] [address] [place] [address] 11/18/2024 10:15 AM EDT Office Visit [facility] [address] [place] [address] Harvey Bryan, DO [address] [place] [address] 02/13/2025 9:40 AM EST Office Visit [facility] [address] [place] [address] Adelaida Carrion, BRIANA [address] [place] [address] documented as of this encounter Visit Diagnoses Not on filedocumented in this encounter Care Teams Numerical Control Router Operator Relationship Specialty Start Date End Date José Luis Roberts MD PCP - General Family Medicine 10/14/22 05/17/23 José Luis Roberts MD [address] [place] [address] PCP - General Family Medicine 05/18/23 01/26/24 Unallocated, Johan Sierra MD [address] [place] [address] PCP - General Family Medicine 01/27/24 02/01/24 José Luis Roberts MD [address] [place] [address] PCP - General Family Medicine 02/02/24 Adelaida Carrion NP Referring Physician Nurse Practitioner 10/14/22 Miriam Suarez DO [address] [place], [place] [address] Referring Physician Neurology 06/29/23 Mathew Parra LPN Registered Nurse Family Medicine 07/07/23 07/08/23 Mathew Parra LPN Licensed Practical Nurse Family Medicine 07/23/23 Diana De Leon LPN [address] [place] [address] Licensed Practical Nurse Family Medicine 12/18/2302/11 Adelaida Carrion NP [address] [place] [address] Nurse Practitioner Family Medicine 01/27/24 Bong Rosado MA [address] [place] [address] Family Medicine 02/12/24 Juany Leggett PA [address] [place] [address] Assistant Neurology 07/26/24 documented as of this encounter
--- OUTSIDE RECORDS SUMMARY | 2024-11-14 21:32 | XMS_ITS | Patient Health Record ---
Author Organization [facility] [place] Address [address] [place] [address] Care Team Providers Care Investor Name Role Phone Adelaida Carrion CNP Primary [...] Problem Status W/U Status Risk Notes Problem 65688335 Sprain of tarsometatarsal ligament of right foot, initial encounter (S93.621A) Active confirmed Problem 288957529 Lumbar postlaminectomy syndrome (M96.1) Active confirmed Problem 85291488 Lumbosacral spondylosis without myelopathy (M47.817) Active confirmed Problem Altered mental status (123082778) Altered mental status (R41.82) Active confirmed Plan [...] UNITED HEALTH CARE MEDICARE PPO [address] [address] [place], [place] [id number] Nasim Conway Self - patient is the insured MEDICARE [place] [address] [id number] Nasim Conway Self - patient is the insured Medical (General) History Medical History History ICD Code Right foot pain M79.671 hypertension dysphagia Osteoporosis M81.0 Bipolar disorder with severe depression F31.4 Brain vascular 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
--- OUTSIDE RECORDS SUMMARY | 2024-11-14 21:32 | XMS_ITS | Encounter Summary ---
Author Organization [facility] Address [address] [place] [address] Care Team Providers Care Scalloper Name Role Phone Adelaida Carrion NP Unavailable [phone] José Luis Roberts MD Primary Care Provider [phone] José Luis Roberts MD Primary Care Provider [phone] Miriam Suarez DO Unavailable [phone] [place], Ardana CLERK OF SCALES Unavailable Unavailable Aida Ardana CLERK OF SCALES Unavailable Unavailable Diana De Leon CLERK OF SCALES Unavailable Unallocated, Noms Provider Primary Care Provi kellee Adelaida Carrion NP Unavailable [phone] José Luis Roberts MD Primary Care Provider [phone] Bong Rosado MA Unavailable [phone] Juany Leggett Unavailable Encounter Details Date Type Department Care Team (Late st Contact Info) Description 03/06/2023 Clinisync Result Encounter [facility] External Department Unsolicited Ashleigh Hines, MAUREEN [address] [place] [address] Social History Tobacco Use Types [...] [facility] [address] [place] [address] 11/18/2024 10:15 AM EDT Office Visit [facility] [address] [place] [address] Harvey Bryan, DO [address] [place] [address] 02/13/2025 9:40 AM EST Office Visit [facility] [address] [place] [address] Adelaida Carrion NP [address] [place] [address] documented as of this encounter Procedures Procedure Name Priority Date/Time Associated Diagnosis Comments MR KNEE RT WO CON 03/06/2023 3:5 5 PM EST documented in this encounter Results * MR KNEE RT WO CON (03/06/2023 3:55 PM EST) Anatomical Region Laterality Modality Other 03/06/2023 3:55 PM EST Narrative 03/06/2023 3:55 PM EST The [address] [address] Magnetic Resonance Report Signed Patient: NASIM BE MR#: [id number] : 1960 Acct:[id number] Age/Sex: 62 / F ADM Date: 03/06/23 Loc: MRI Attending Dr: Ashleigh REDDY Ordering Physician: Ashleigh Hines Date of Service: 03/06/23 Procedure(s): MR knee RT wo con Accession Number(s): [id number] cc: Adelaida Carrion NP; Ashleigh Hines [place] [address] Patient Name: NASIM BE MRN: [facility]:[id number] date: 1960 Sex: F Assigned Patient Location: MRI Current Patient Location: MRI Accession/Order Number: [id number] Exam Date: 03/06/2023 09:30 Report Date: 03/06/2023 [...] Signed By: 03/06/23 1558 DD/ 1555 TD/TT: Plastic Top Assembler: Procedure Note Radiology, Radiologist, - 03/06/2023 [place] [address] Magnetic Resonance Report Signed Patient: NASIM BE LMR#: [id number] : 1960cct:[id number] Age/Sex: 62 / FADM Date: 03/06/23 Loc: MRI Attending Dr: Ashleigh REDDY Ordering Physician: Ashleigh Hines Date of Service: 03/06/23 Procedure(s): MR knee RT wo con Accession Number(s): [id number] cc: Adelaida Carrion NP; Ashleigh Hines The [place] [id number] Patient Name: NASIM BE MRN: [id number] date: 1960 Sex: F Assigned Patient Location: MRI Current Patient Location: MRI Accession/Order Number: [id number] Exam Date: 03/06/2023 09:30 Report Date: 03/06/2023 [...] M.D. Signed By:03/06/23 1558 DD/ 1555 TD/TT: Plastic Top Assembler: us Ashleigh REDDY [facility] Final Resul t documented in this encounter Visit Diagnoses Not on filedocumented in this encounter Care Teams Scalloper Relationship Specialty Start Date End Date José Luis Roberts MD PCP - General Family Medicine 10/14/22 05/17/23 José Luis Roberts MD [address] [place] [address] PCP - General Family Medicine 05/18/23 01/26/24 Unallocated, Johan Sierra MD [address] [place] [address] PCP - General Family Medicine 01/27/24 02/01/24 José Luis Roberts MD [address] [place] [address] PCP - General Family Medicine 02/02/24 Adelaida Carrion NP Referring Physician Nurse Practitioner 10/14/22 Miriam Suarez DO [address] [place] [address] Referring Physician Neurology 06/29/23 Mathew Parra LPN Registered Nurse Family Medicine 07/07/23 07/08/23 Mathew Parra LPN Licensed Practical Nurse Family Medicine 07/23/23 Diana De Leon LPN [address] [place] [address] Licensed Practical Nurse Family Medicine 12/18/2302/11 Adelaida Carrion NP [address] [place] [address] Nurse Practitioner Family Medicine 01/27/24 Bong Rosado, MI [address] [place] [address] Family Medicine 02/12/24 Juany Leggett PA [address] [place] [address] Physician Lining Cleaner Neurology 07/26/24 documented as of this encounter
--- OUTSIDE RECORDS SUMMARY | 2024-11-14 21:32 | XMS_ITS | Clinical Summary ---
Author Organization [employer] Address [id number] [address] [place] [address] Care Team Providers Care Jig Fitter Name Role Phone Adelaida Carrion APRN-MEDIA ARTS PROFESSOR Primary Care Provider Medications gabapentin (NEURONTIN) 600 mg tabletIndicatio ns:Neuropathy 1 tablet po in the am (600mg) 1 tablet po at noon (600mg) an 2 tablets po at bedtime (1200mg) 120 tablet 5 05/04/2018 Active Encounters Date Type Department Care Team Description 10/08/2024 12:51 PM EDT - 10/09/2024 6:17 PM EDT Emergency [facility] [address] [place] [address] Discharge Disposition: Telemedicine Discharge from [...] Devices Not on file Insurance [employer] [address] Care Teams Jig Fitter Relationship Specialty Start Date End Date Adelaida Carrion, PRODUCTION ZONE LEADER-MEDIA ARTS PROFESSOR PCP - General Nurse Practitioner 12/10/16
--- OUTSIDE RECORDS SUMMARY | 2024-11-14 21:32 | XMS_ITS | Encounter Summary ---
Author Organization [facility] Address [address] [place] [address] Care Team Providers Care Grocery Team Member Name Role Phone Miriam Suarez Unavailable [phone] Adelaida Carrion NP Unavailable [phone] José Luis Roberts MD Primary Care Provider [phone] Bong Rosado MA Unavailable [phone] Juany Leggett Unavailable Encounter Details Date Type Department Care Team (Late st Contact Info) Description 09/19/2024 Abstract [facility] [address] [place] [address] Adelaida Carrion, BRIANA [address] [place] [address] Social History Tobacco Use Types [...] How often do you attend anabaptism or druze serv ices? Never 08/16/2023 Do [...] Procedure [facility] [place] [facility] [address] [place] [address] 11/18/2024 10:15 AM EDT Office Visit [facility] [place] [facility] [address] [place] [address] Harvey Bryan DO [address] [place] [address] 02/13/2025 9:40 AM EST Office Visit [facility] [address] [place] [address] Adelaida Carrion, BRIANA [address] [place] [address] documented as of this encounter Visit Diagnoses Not on filedocumented in this encounter Additional Health Concerns Assessment Noted Time PHQ-9 Depression Total Score: 8 05/18/19 24 5:00 PM EST documented as of this encounter Care Teams Grocery Team Member Relationship Specialty Start Date End Date José Luis Roberts MD [address] [place] [address] PCP - General Family Medicine 02/02/24 Miriam Suarez DO [address] [place] [address] Referring Physician Neurology 06/29/23 Adelaida Carrion, BRIANA [address] [place] [address] Nurse Practitioner Family Medicine 01/27/24 Bong Rosado MA [address] [place] [address] Family Medicine 02/12/24 Juany Leggett PA [address] [place] [address] Physician Forensic Chemist Neurology 07/26/24 documented as of this encounter
--- OUTSIDE RECORDS SUMMARY | 2024-11-14 21:32 | XMS_ITS | Encounter Summary ---
Author Organization [facility] Address [address] [place] [address] Care Team Providers Care Oil And Gas Exploration Technician Name Role Phone Miriam Suarez DO Unavailable [phone] Adelaida Carrion NP Unavailable [phone] José Luis Roberts MD Primary Care Provider Bong Rosado MA Unavailable [phone] Juany Leggett Unavailable Reason for Visit * Reason Onset Date Comments New Med Request 10/28/2024 MRI - Right knee - patient is claustrophobic and requests medication for testing uses Drug [place] [facility] Encounter Details Date Type Department Care Team (Late st Contact Info) Description 10/28/2024 Telephone [facility] [address] [place] [address] Harvey Bryan DO [address] [place] [address] New Med Request (MRI - Right knee - patient is claustrophobic and requests medication for testing uses Drug [place] [facility] ) Social History Tobacco Use Types Packs/Day Years [...] How often do you attend taoist or jain serv ices? Never 08/16/2023 Do you belong [...] encounter Miscellaneous Notes * Telephone Encounter - Carmen Grey MA - 10/31/2024 9:39 AM EDT Called Valium into DM documented in this encounter Plan of Treatment Upcoming Encounters Date Type Department Care Team (Late st Contact Info) Description 11/17/2024 8:45 AM EDT Ancillary Procedure [facility] [place] [facility] [address] [place] [address] 11/18/2024 10:15 AM EDT Office Visit [facility] [place] [facility] [address] [place] [address] Harvey Bryan DO [address] [place] [address] 02/13/2025 9:40 AM EST Office Visit [facility] [address] [place] [address] Adelaida Carrion NP [address] [place] [address] documented as of this encounter Visit Diagnoses Diagnosis Claustrophobia Other isolated or specific phobias documented in this encounter Additional Health Concerns Assessment Noted Time PHQ-9 Depression Total Score: 8 05/18/19 24 5:00 PM EST documented as of this encounter Care Teams Oil And Gas Exploration Technician Relationship Specialty Start Date End Date José Luis Roberts MD [address] [place] [address] PCP - General Family Medicine 02/02/24 Miriam Suarez DO [address] [place] [address] Referring Physician Neurology 06/29/23 Adelaida Carrion NP [address] [place] [address] Nurse Practitioner Family Medicine 01/27/24 Bong Rosado MA [address] [place] [address] Family Medicine 02/12/24 Juany Leggett PA [address] [place] [address] Physician Manufacturing Leader Neurology 07/26/24 documented as of this encounter
--- OUTSIDE RECORDS SUMMARY | 2024-11-14 21:32 | XMS_ITS | Clinical Summary ---
Author Organization [facility] Address [address] [place] [address] Care Team Providers Care Ground Support Agent Name Role Phone Unavailable Primary Care Provider [...]
--- OUTSIDE RECORDS SUMMARY | 2024-11-14 21:32 | XMS_ITS | Encounter Summary ---
Author Organization [facility] Address [address] [place] [address] Care Team Providers Care Home Care Scheduler Name Role Phone Adelaida Carrion NP Unavailable [phone] José Luis Roberts MD Primary Care Provider [phone] Miriam Suarez DO Unavailable [phone] Mathew Parra OFFICIAL GREETER Unavailable Unavailable Diana De Leon LPN Unavailable Unallocated, Noms Provider Primary Care Provi kellee Adelaida Carrion NP Unavailable [phone] José Luis Roberts MD Primary Care Provider [phone] Bong Rosado MA Unavailable [phone] Juany Leggett Unavailable Encounter Details Date [...] How often do you attend adventism or restorationism serv ices? Never 08/16/2023 Do [...] Recorded Patient Health Questionnaire-2 Score 2 09/21/2023 [facility] [place] of Occupat ional Health - Occupational Stress [...] Procedure [facility] [address] [place] [address] 11/18/2024 10:15 AM EDT Office Visit [facility] [address] [place] [address] Harrison Bryan, DO [address] [place] [address] 02/13/2025 9:40 AM EST Office Visit [facility] [address] [place] [address] Adelaida Carrion NP [address] [place] [address] documented as of this encounter Procedures Procedure Name Priority Date/Time Associated Diagnosis Comments XR THORACIC SPINE 2 VIEWS 12/02/2023 2:53 PM EDT documented in this encounter Results * XR thoracic spine 2 views (12/02/2023 2:53 PM EDT) Anatomical Region Laterality Modality Spine, T-spine Radiographic Nelda ging 12/02/2023 2:53 PM EDT Narrative 12/02/2023 2:55 PM EDT The [address] [address] XRay Report Signed Patient: NASIM BE MR#: [id number] : 1960 Acct:[id number] Age/Sex: 62 / F ADM Date: 12/02/23 Loc: RAD Attending Dr: Elizabeth Culp NP Ordering Physician: Elizabeth Culp NP Date of Service: 12/02/23 Procedure(s): XR thoracic spine 2V Accession Number(s): [id number] cc: Adelaida Carrion MANAGER MALL; Elizabeth Culp NP [address] [address] Patient Name: NASIM BE MRN: [facility]:[id number] date: 1960 Sex: F Assigned Patient Location: RAD Current Patient Location: RAD Accession/Order Number: [id number] Exam Date: 12/02/2023 14:10 Report Date: 12/02/2023 [...] Signed By: 12/02/23 1455 DD/ 1453 TD/TT: Hotel Desk Clerk: Procedure Note Radiology, Radiologist, MD - 12/02/[address] [address] XRay Report Signed Patient: NASIM BE LMR#: [id number] : 1960cct:[id number] Age/Sex: 62 / FADM Date: 12/02/23 Loc: [facility] Attending Dr: Elizabeth Culp NP Ordering Physician: Elizabeth Culp NP Date of Service: 12/02/23 Procedure(s): XR thoracic spine 2V Accession Number(s): [id number] cc: Adelaida Carrion NP; Elizabeth Culp NP The [address] [address] Patient Name: NASIM BE MRN: [facility]:[id number] date: 1960 Sex: F Assigned Patient Location: [facility] Current Patient Location: RAD Accession/Order Number: [id number] Exam Date: 12/02/2023 14:10 Report Date: 12/02/2023 [...] M.D. Signed By:12/02/23 1455 DD/ 1453 TD/TT: Hotel Desk Clerk: us Generic External Data Provider IMG XR PROCEDURES Final Result documented in this encounter Visit Diagnoses Not on filedocumented in this encounter Additional Health Concerns Assessment Noted Time PHQ-9 Depression Total Score: 8 05/18/19 24 5:00 PM EST documented as of this encounter Care Teams Home Care Scheduler Relationship Specialty Start Date End Date José Luis Roberts MD [address] [place] [address] PCP - General Family Medicine 05/18/23 01/26/24 Unallocated, Noms ProviderMD [address] [place] [address] PCP - General Family Medicine 01/27/24 02/01/24 José Luis Roberts MD [address] [place] [address] PCP - General Family Medicine 02/02/24 Adelaida Carrion NP Referring Physician Nurse Practitioner 10/14/22 Miriam Suarez DO [address] [place] [address] Referring Physician Neurology 06/29/23 Mathew Parra LPN Licensed Practical Nurse Family Medicine 07/23/23 Diana De Leon LPN [address] [place] [address] Licensed Practical Nurse Family Medicine 12/18/2302/11 Adelaida Carrion NP [address] [place] [address] Nurse Practitioner Family Medicine 01/27/24 Bong Rosado, [place] [address] [place] [address] Family Medicine 02/12/24 Juany Leggett PA [address] [place] [address] Physician Food Specialist Neurology 07/26/24 documented as of this encounter
--- OUTSIDE RECORDS SUMMARY | 2024-11-14 21:32 | XMS_ITS | Encounter Summary ---
Author Organization [facility] Address [address] [place] [address] Care Team Providers Care Merchant Banker Name Role Phone Adelaida Carrion NP Unavailable [phone] José Luis Roberts MD Primary Care Provider [phone] Miriam Suarez DO Unavailable [phone] Mathew Parra SHANK FAKER Unavailable Unavailable Diana De Leon LPN Unavailable Unallocated, Noms Provider Primary Care Provi kellee Adelaida Carrion NP Unavailable [phone] José Luis Roberts MD Primary Care Provider [phone] Bong Rosado MA Unavailable [phone] Juany Leggett Unavailable Encounter Details Date Type Department Care Team (Late st Contact Info) Description 12/02/2023 Orders Only [facility] [address] [place] [address] Bhakti Culp NP [address] [place] [address] Social History Tobacco Use Types [...] declined 08/16/2023 How often do you attend nondenominational or denominational serv ices? Never 08/16/2023 Do you belong to any clubs o r organizations such as nondenominational groups, unions, fraternal or athletic groups, or [...] Imaging [address] [place] [address] 11/18/2024 10:15 AM EDT Office Visit [facility] [address] [place] [address] PocHarvey preston, DO [address] [place] [address] 02/13/2025 9:40 AM EST Office Visit [facility] [address] [place] [address] Adelaida Carrion NP [address] [place] [address] documented as of this encounter Procedures Procedure [...] documented as of this encounter Care Teams Merchant Banker Relationship Specialty Start Date End Date José Luis Roberts MD [address] [place] [address] PCP - General Family Medicine 05/18/23 01/26/24 Unallocated, Johan Sierra MD [address] [place] [address] PCP - General Family Medicine 01/27/24 02/01/24 José Luis Roberts MD [address] [place] [address] PCP - General Family Medicine 02/02/24 Adelaida Carrion NP Referring Physician Nurse Practitioner 10/14/22 Miriam Suarez DO [address] [place] [address] Referring Physician Neurology 06/29/23 Mathew Parra LPN Licensed Practical Nurse Family Medicine 07/23/23 Diana De Leon LPN [address] [place] [address] Licensed Practical Nurse Family Medicine 12/18/2302/11 Adelaida Carrion NP [address] [place] [address] Nurse Practitioner Family Medicine 01/27/24 Bong Rosado MA [address] [place] [address] Family Medicine 02/12/24 Juany Leggett PA [address] [place] [address] Physician Precision Jig Grinder Neurology 07/26/24 documented as of this encounter
--- OUTSIDE RECORDS SUMMARY | 2024-11-14 21:32 | XMS_ITS | Encounter Summary ---
Author Organization [facility] Address [address] [place] [address] Care Team Providers Care Boat Master Name Role Phone Adelaida Carrion NP Unavailable [phone] José Luis Roberts MD Primary Care Provider [phone] Miriam Suarez DO Unavailable [phone] Mathew Parra ADVERTISING SOLICITOR Unavailable Unavailable Mathew Parra ADVERTISING SOLICITOR Unavailable Unavailable Diana De Leon ADVERTISING SOLICITOR Unavailable Unallocated, Noms Provider Primary Care Provi kellee Adelaida Carrion NP Unavailable [phone] José Luis Roberts MD Primary Care Provider [phone] Bong Rosado MA Unavailable [phone] Juany Leggett Unavailable Encounter Details Date Type Department Care Team (Late st Contact Info) Description 05/19/2023 Clinisync Result Encounter [facility] External Department Unsolicited Adelaida Carrion NP [address] [place] [address] Social History Tobacco Use Types Packs/Day Years [...] Never 05/18/2023 How often do you attend mormonism or catholic serv ices? Never 05/18/2023 Do you [...] Recorded Patient Health Questionnaire-2 Score 1 05/18/2023 [facility] [...] slept in a half-way (including now)? No 05/18/2023 Comments Unknown Sex [...] [facility] [address] [place] [address] 11/18/2024 10:15 AM EDT Office Visit [facility] [address] [place] [address] Harrison Bryan, DO [address] [place] [address] 02/13/2025 9:40 AM EST Office Visit [facility] [address] [place] [address] Adelaida Carrion, BRIANA [address] [place] [address] documented as of this encounter Procedures Procedure Name Priority Date/Time Associated Diagnosis Comments XR HIP LT MIN 2V 05/19/2023 9:31 AM EST documented in this encounter Results * XR HIP LT MIN 2V (05/19/2023 9:31 AM EST) Anatomical Region Laterality Modality Other 05/19/2023 9:31 AM EST Narrative 05/19/2023 9:34 AM EST [address] [address] XRay Report Signed Patient: NASIM BE MR#: [id number] : 1960 Acct:[id number] Age/Sex: 62 / F ADM Date: 05/19/23 Loc: RAD Attending Dr: Adelaida Carrion TRAINING AND DEVELOPMENT SPECIALIST Ordering Physician: Adelaida Carrion NP Date of Service: 05/19/23 Procedure(s): XR hip LT min 2V Accession Number(s): [id number] cc: Adelaida Carrion NP [address] [address] Patient Name: NASIM BE MRN: [id number] date: 1960 Sex: F Assigned Patient Location: RAD Current Patient Location: RAD Accession/Order Number: [id number] Exam Date: 05/19/2023 07:50 Report Date: 05/19/2023 [...] M.D. Signed By: 05/19/23933 DD/ 0 TD/TT: Net Fisher: Procedure Note Radiology, Radiologist, MD - 05/19/2023 [place] [address] XRay Report Signed Patient: NASIM BE LMR#: [id number] : 1960cct:[id number] Age/Sex: 62 / FADM Date: 05/19/23 Loc: RAD Attending Dr: Adelaida Carrion NP Ordering Physician: Adelaida Carrion NP Date of Service: 05/19/23 Procedure(s): XR hip LT min 2V Accession Number(s): [id number] cc: Adelaida Carrion NP The [place] [id number] Patient Name: NASIM BE MRN: [facility]:[id number] date: 1960 Sex: F Assigned Patient Location: RAD Current Patient Location: RAD Accession/Order Number: [id number] Exam Date: 05/19/2023 07:50 Report Date: 05/19/2023 [...] 09:31 Dictated By: Harrison Maciel M.D. Signed By:05/19/23933 DD/ 0 TD/TT: Net Fisher: us Adelaida Carrion NP [facility] Final Result documented in this encounter Visit Diagnoses Not on filedocumented in this encounter Additional Health Concerns Assessment Noted Time PHQ-9 Depression Total Score: 8 05/18/19 5:00 PM EST documented as of this encounter Care Teams Boat Master Relationship Specialty Start Date End Date José Luis Roberts MD [address] [place] [address] PCP - General Family Medicine 05/18/23 01/26/24 Unallocated, Noms ProviderMD [address] [place] [address] PCP - General Family Medicine 01/27/24 02/01/24 José Luis Roberts MD [address] [place] [address] PCP - General Family Medicine 02/02/24 Adelaida Carrion NP Referring Physician Nurse Practitioner 10/14/22 Miriam Suarez DO [address] [place] [address] Referring Physician Neurology 06/29/23 Mathew Parra LPN Registered Nurse Family Medicine 07/07/23 07/08/23 Mathew Parra LPN Licensed Practical Nurse Family Medicine 07/23/23 Diana De Leon, ADVERTISING SOLICITOR [address] [place] [address] Licensed Practical Nurse Family Medicine 12/18/2302/11 Adelaida Carrion NP [address] [place] [address] Nurse Practitioner Family Medicine 01/27/24 Bong Rosado, [place] [address] [place] [address] Family Medicine 02/12/24 Juany Leggett PA [address] [place] [address] Physician Semaphore Operator Neurology 07/26/24 documented as of this encounter
--- OUTSIDE RECORDS SUMMARY | 2024-11-14 21:32 | XMS_ITS | Encounter Summary ---
Author Organization [facility] Address [address] [facility] [place] [address] Care Team Providers Care Policy Adviser Name Role Phone Adelaida Carrion NP Unavailable [phone] José Luis Roberts MD Primary Care Provider [phone] José Luis Roberts MD Primary Care Provider [phone] Miriam Suarez DO Unavailable [phone] [place] Roberts, Ardana WINE SPECIALIST Unavailable Unavailable Aida Ardana WINE SPECIALIST Unavailable Unavailable Diana De Leon WINE SPECIALIST Unavailable Unallocated, Noms Provider Primary Care Provi kellee Adelaida Carrion NP Unavailable [phone] José Luis Roberts MD Primary Care Provider [phone] Bong Rosado MA Unavailable [phone] Juany Leggett Unavailable Encounter Details Date Type Department Care Team (Late st Contact Info) Description 11/14/2022 Abstract [facility] [address] [place] [address] Travon Hines PA [address] [place] [address] Social History Tobacco Use Types [...] Ancillary Procedure [facility] [address] [place] [address] 11/18/2024 10:15 AM EDT Office Visit [facility] [address] [place] [address] Harvey Bryan, DO [address] [place] [address] 02/13/2025 9:40 AM EST Office Visit [facility] [address] [place] [address] Adelaida Carrion NP [address] [place] [address] documented as of this encounter Visit Diagnoses Not on filedocumented in this encounter Care Teams Policy Adviser Relationship Specialty Start Date End Date José Luis Roberts MD PCP - General Family Medicine 10/14/22 05/17/23 José Luis Roberts MD [address] [place] [address] PCP - General Family Medicine 05/18/23 01/26/24 Unallocated, Johan Sierra MD [address] [place] [address] PCP - General Family Medicine 01/27/24 02/01/24 José Luis Roberts MD [address] [place] [address] PCP - General Family Medicine 02/02/24 Adelaida Carrion NP Referring Physician Nurse Practitioner 10/14/22 Miriam Suarez DO [address] [place], [place] [address] Referring Physician Neurology 06/29/23 Mathew Parra LPN Registered Nurse Family Medicine 07/07/23 07/08/23 Mathew Parra LPN Licensed Practical Nurse Family Medicine 07/23/23 Diana De Leon LPN [address] [place] [address] Licensed Practical Nurse Family Medicine 12/18/2302/11 Adelaida Carrion NP [address] [place] [address] Nurse Practitioner Family Medicine 01/27/24 Bong Rosado MA [address] [place] [address] Family Medicine 02/12/24 Juany Leggett PA [address] [place], [place] [address] Physician Seasonal Clerk Neurology 07/26/24 documented as of this encounter
--- OUTSIDE RECORDS SUMMARY | 2024-11-14 21:32 | XMS_ITS | Encounter Summary ---
Author Organization [facility] Address [address] [place] [address] Care Team Providers Care Branch Sales Manager Name Role Phone Adelaida Carrion NP Unavailable [phone] José Luis Roberts MD Primary Care Provider [phone] José Luis Roberts MD Primary Care Provider [phone] Miriam Suarez DO Unavailable [phone] [place], Ardana CITY JAILER Unavailable Unavailable Aida Ardana CITY JAILER Unavailable Unavailable Diana De Leon CITY JAILER Unavailable Unallocated, Noms Provider Primary Care Provi kellee Adelaida Carrion COMMERCIAL OCEAN CLAMMER Unavailable [phone] José Luis Roberts MD Primary Care Provider [phone] Bong Rosado MA Unavailable [phone] Juany Leggett Unavailable Encounter Details Date Type Department Care Team (Late st Contact Info) Description 04/08/2023 Orders Only [facility] [address] [place] [address] Adelaida Carrion COMMERCIAL OCEAN CLAMMER [address] [place] [address] Social History Tobacco Use Types Packs/Day Years [...] 11/17/2024 8:45 AM EDT Ancillary Procedure [facility] [address] [place] [address] 11/18/2024 10:15 AM EDT Office Visit [facility] [address] [place] [address] Harvey Bryan, [address] [place] [address] 02/13/2025 9:40 AM EST Office Visit [facility] [address] [place] [address] Adelaida Carrion NP [address] [place] [address] documented as of this encounter Procedures Procedure Name Priority Date/Time Associated Diagnosis Comments MISCELLANEOUS LAB TEST Routine 03/23/2023 2:45 PM EST documented in this encounter Results * - Miscellaneous Test (03/23/2023 2:45 PM EST) us Adelaida Carrion NP LAB BLOOD ORDERABLES Final Resu lt documented in this encounter Visit Diagnoses Not on filedocumented in this encounter Care Teams Branch Sales Manager Relationship Specialty Start Date End Date José Luis Roberts MD PCP - General Family Medicine 10/14/22 05/17/23 José Luis Roberts MD [address] [place] [address] PCP - General Family Medicine 05/18/23 01/26/24 Unallocated, Johan Sierra MD [address] [place], [place] [address] PCP - General Family Medicine 01/27/24 02/01/24 José Luis Roberts MD [address] [place] [address] PCP - General Family Medicine 02/02/24 Adelaida Carrion NP Referring Physician Nurse Practitioner 10/14/22 Miriam Suarez DO [address] [place] [address] Referring Physician Neurology 06/29/23 Mathew Parra LPN Registered Nurse Family Medicine 07/07/23 07/08/23 Mathew Parra LPN Licensed Practical Nurse Family Medicine 07/23/23 Diana De Leon LPN [address] [place] [address] Licensed Practical Nurse Family Medicine 12/18/2302/11 Adelaida Carrion NP [address] [place] [address] Nurse Practitioner Family Medicine 01/27/24 Bong Rosado, [place] [address] [place], [place] [address] Family Medicine 02/12/24 Juany Leggett PA [address] [facility] [address] [place] [address] Physician Store Associate Neurology 07/26/24 documented as of this encounter
--- OUTSIDE RECORDS SUMMARY | 2024-11-14 21:32 | XMS_ITS | Encounter Summary ---
Author Organization [facility] Address [address] [place] [address] Care Team Providers Care Account Development Associate Name Role Phone Adelaida Carrion NP Unavailable [phone] José Luis Roberts MD Primary Care Provider [phone] José Luis Roberts MD Primary Care Provider [phone] Miriam Suarez DO Unavailable [phone] [place], Ardana TUBE LANCER Unavailable Unavailable Aida Ardana TUBE LANCER Unavailable Unavailable Diana De Leon TUBE LANCER Unavailable Unallocated, Noms Provider Primary Care Provi kellee Adelaida Carrion NP Unavailable [phone] José Luis Roberts MD Primary Care Provider [phone] Bong Rosado MA Unavailable [phone] Juany Leggett Unavailable Encounter Details Date Type Department Care Team (Late st Contact Info) Description 03/25/2023 Abstract [facility] [address] [place] [address] Adelaida Carrion NP [address] [place] [address] Social History Tobacco Use Types Packs/Day Years [...] [address] [place] [address] 11/18/2024 10:15 AM EDT Office Visit [facility] [address] [place] [address] Harvey Bryan, DO [address] [place] [address] 02/13/2025 9:40 AM EST Office Visit [facility] [address] [place] [address] Adelaida Crarion, BRIANA [address] [place] [address] documented as of this encounter Visit Diagnoses Not on filedocumented in this encounter Care Teams Account Development Associate Relationship Specialty Start Date End Date José Luis Roberts MD PCP - General Family Medicine 10/14/22 05/17/23 José Luis Roberts MD [address] [place] [address] PCP - General Family Medicine 05/18/23 01/26/24 Unallocated, Johan Sierra MD [address] [place] [address] PCP - General Family Medicine 01/27/24 02/01/24 José Luis Roberts MD [address] [place] [address] PCP - General Family Medicine 02/02/24 Adelaida Carrion NP Referring Physician Nurse Practitioner 10/14/22 Miriam Suarez DO [address] [place], [place] [address] Referring Physician Neurology 06/29/23 Mathew Parra LPN Registered Nurse Family Medicine 07/07/23 07/08/23 Mathew Parra LPN Licensed Practical Nurse Family Medicine 07/23/23 Diana De Leon LPN [address] [place] [address] Licensed Practical Nurse Family Medicine 12/18/2302/11 Adelaida Carrion NP [address] [place] [address] Nurse Practitioner Family Medicine 01/27/24 Bong Rosado, [place] [address] [place] [address] Family Medicine 02/12/24 Juany Leggett PA [address] [place], [place] [address] Physician Grain Sampler Neurology 07/26/24 documented as of this encounter
--- OUTSIDE RECORDS SUMMARY | 2024-11-14 21:32 | XMS_ITS | Encounter Summary ---
Author Organization [facility] Address [address] [place] [address] Care Team Providers Care Salesperson Driver Name Role Phone Adelaida Carrion NP Unavailable [phone] José Luis Roberts MD Primary Care Provider [phone] Miriam Suarez DO Unavailable [phone] Mathew Parra LEAD NUCLEAR MEDICINE TECHNOLOGIST Unavailable Unavailable Diana De Leon LEAD NUCLEAR MEDICINE TECHNOLOGIST Unavailable Unallocated, Noms Provider Primary Care Provi kellee Adelaida Carrion NP Unavailable [phone] José Luis Roberts MD Primary Care Provider [phone] Bong Rosado MA Unavailable [phone] Juany Leggett Unavailable Encounter Details Date Type Department Care Team (Late st Contact Info) Description 08/26/2023 Orders Only [facility] [address] [place] [address] Arsalan Hagen MD [address] [address] Social History Tobacco Use Types Packs/Day Years [...] How often do you attend mu-ism or christianity serv ices? Never 08/16/2023 Do [...] Recorded Patient Health Questionnaire-2 Score 0 08/17/2023 [facility] of Occupat ional Health [...] Procedure [facility] [address] [place] [address] 11/18/2024 10:15 AM EDT Office Visit [facility] [address] [place] [address] PocosHarvey, DO [address] [place] [address] 02/13/2025 9:40 AM EST Office Visit [facility] [address] [place] [address] Adelaida Carrion NP [address] [place] [address] documented as of this encounter [...] documented as of this encounter Care Teams Salesperson Driver Relationship Specialty Start Date End Date José Luis Roberts MD [address] [place] [address] PCP - General Family Medicine 05/18/23 01/26/24 Unallocated, Noms MD Mariela [address] [place] [address] PCP - General Family Medicine 01/27/24 02/01/24 José Luis Roberts MD [address] [place] [address] PCP - General Family Medicine 02/02/24 Adelaida Carrion NP Referring Physician Nurse Practitioner 10/14/22 Miriam Suarez DO [address] [place], [place] [address] Referring Physician Neurology 06/29/23 Mathew Parra LPN Licensed Practical Nurse Family Medicine 07/23/23 Diana De Leon LPN [address] [place] [address] Licensed Practical Nurse Family Medicine 12/18/2302/11 Adelaida Carrion NP [address] [place] [address] Nurse Practitioner Family Medicine 01/27/24 Bong Rosado, [place] [address] [place] [address] Family Medicine 02/12/24 Juany Leggett PA [address] [place], [place] [address] Physician Airborne Electronics Analyst Neurology 07/26/24 documented as of this encounter
--- OUTSIDE RECORDS SUMMARY | 2024-11-14 21:34 | XMS_ITS | CCD ---
Author Organization [facility] Care Team Providers Care Change Control Manager Name Role Phone EBRAHEIM, SUKI Admitting Unavailable EBRAHEIM, SUKI Attending Unavailable AICHHOLZ, ADELAIDA Referring Unavailable AICHHOLZ, ADELAIDA Primary Care Unavailable WA Procedure Practitioner Unavailab SUKI Jacob Surgeon Unavailable WA Procedure Practitioner Unavailab CHAPARRITA Goncalves Surgeon Unavailable BRIDGETTE MACEDO Admitting Unavailable BRIDGETTE MACEDO Attending Unavailable AICHHOLZ, ELECTRIC GOLF CART REPAIRER ADELAIDA Primary Care Unavailable NIXON ., DR FINA Iverson Admitting Unavailable NIXON ., DR FINA Iverson Attending Unavailable AICHHOLZ, ELECTRIC GOLF CART REPAIRER ADELAIDA Primary Care Unavailable MCDANIEL ., ZELDA Consulting Unavailable LAKSHMIPATHY ., NARENDRANATH Consulting Paula vailable LAKSHMIPATHY ., NARENDRANATH Admitting Paula vailable LAKSHMIPATHY ., NARENDRANATH Attending Paula vailable AICHHOLZ, ELECTRIC GOLF CART REPAIRER ADELAIDA Primary Care Unavailable LAKSHMIPATHY ., NARENDRANATH Consulting Paula vailable AICHHOLZ, ELECTRIC GOLF CART REPAIRER ADELAIDA Primary Care Unavailable MARKER ., DR CHAUDHRY Admitting Unavailable MARKER ., DR CHAUDHRY Attending Unavailable MARKER ., DR CHAUDHRY Consulting Unavailable AICHHOLZ, ELECTRIC GOLF CART REPAIRER ADELAIDA Admitting Unavailable AICHHOLZ, ELECTRIC GOLF CART REPAIRER ADELAIDA Attending Unavailable AICHHOLZ, ELECTRIC GOLF CART REPAIRER ADELAIDA Primary Care Unavailable NIXON ., DR FINA Iverson Admitting Unavailable NIXON ., DR FINA Iverson Attending Unavailable AICHHOLZ, ELECTRIC GOLF CART REPAIRER ADELAIDA Primary Care Unavailable MCDANIEL ., ZELDA Consulting Unavailable NIXON ., DR FINA Iverson Admitting Unavailable NIXON ., DR FINA Iverson Attending Unavailable AICHHOLZ, ELECTRIC GOLF CART REPAIRER ADELAIDA Primary Care Unavailable MCDANIEL ., ZELDA Consulting Unavailable AICHHOLZ, ELECTRIC GOLF CART REPAIRER ADELAIDA Admitting Unavailable AICHHOLZ, ELECTRIC GOLF CART REPAIRER ADELAIDA Attending Unavailable AICHHOLZ, ELECTRIC GOLF CART REPAIRER ADELAIDA Primary Care Unavailable AICHHOLZ, ELECTRIC GOLF CART REPAIRER ADELAIDA Consulting Unavailable AICHOLZ, ELECTRIC GOLF CART REPAIRER ADELAIDA Admitting Unavailable AICHHOLZ, ELECTRIC GOLF CART REPAIRER ADELAIDA Attending Unavailable AICHOLZ, [facility] ADELAIDA Primary Care Unavailable AICHHOLZ, ELECTRIC GOLF CART REPAIRER ADELAIDA Consulting Unavailable MISC, DR COTE Admitting Unavailable MISC, DR COTE Attending Unavailable AICHOLZ, [facility] ADELAIDA Primary Care Unavailable AICHHOLZ, ELECTRIC GOLF CART REPAIRER ADELAIDA Consulting Unavailable ELYSSA, DR COTE Consulting Unavailable STARR, DR KINGSLEY Atkins Consulting Unavailable NIXON ., DR FINA Iverson Admitting Unavailable NIXON ., DR FINA Iverson Attending Unavailable AICHOLZ, [facility] ADELAIDA Primary Care Unavailable MCDANIEL ., ZELDA Consulting Unavailable NIXON ., DR FINA Iverson Admitting Unavailable NIXON ., DR FINA Iverson Attending Unavailable [facility] Primary Care Unavailable NIXON ., DR FINA Iverson Consulting Unavailable OMID LAY Consulting Unavailable NIXON ., DR FINA Iverson Admitting Unavailable NIXON ., DR FINA Ivreson Attending Unavailable [facility], [facility] Primary Care Unavailable MCDANIEL ., ZELDA Consulting Unavailable [facility] Primary Care Unavailable HALKER ., ARIAN Admitting Unavailable HALKER ., ARIAN Attending Unavailable LAKSHMIPATHY ., NARENDRANATH Consulting Paula vailable HALKER ., ARIAN Consulting Unavailable LAKSHMIPATHY ., NARENDRANATH Admitting Paula vailable LAKSHMIPATHY ., NARENDRANATH Attending Paula vailable [facility], [facility] Primary Care Unavailable LAKSHMIPATHY ., NARENDRANATH Consulting Paula vailable AICHOLZ, ELECTRIC GOLF CART REPAIRER ADELAIDA Admitting Unavailable AICHOLZ, ELECTRIC GOLF CART REPAIRER ADELAIDA Attending Unavailable AICHOLZ, ELECTRIC GOLF CART REPAIRER ADELAIDA Primary Care Unavailable AICHHOLZ, ELECTRIC GOLF CART REPAIRER ADELAIDA Consulting Unavailable BRIDGETTE MACEDO Admitting Unavailable BRIDGETTE MACEDO Attending Unavailable AICHOLZ, ELECTRIC GOLF CART REPAIRER ADELAIDA Primary Care Unavailable STARR, DR KINGSLEY Atkins Consulting Unavailable BRIDGETTE MACEDO Consulting Unavailable GILMER NEVES Admitting Unavailable GILMER NEVES Attending Unavailable PURA, GILMER Consulting Unavailable AICHOLZ, ELECTRIC GOLF CART REPAIRER ADELAIDA Primary Care Unavailable AICHOLZ, ELECTRIC GOLF CART REPAIRER ADELAIDA Primary Care Unavailable DR WILLI RINALDI Admitting Unavailable DEEJAY, DR WILLI Atkins Attending Unavailable DR WILLI RINALDI Consulting Unavailable AICHOLZ, ELECTRIC GOLF CART REPAIRER ADELAIDA Primary Care Unavailable ALMAZ ., DANNY Admitting Unavailable ALMAZ ., DANNY Attending Unavailable DR KINGSLEY CLEMENTS Consulting Unavailable ALMAZ ., DANNY Consulting Unavailable LAKSHMIPATHY ., NARENDRANATH Admitting Paula vailable LAKSHMIPATHY ., NARENDRANATH Attending Paula vailable AICHHOLZ, ELECTRIC GOLF CART REPAIRER ADELAIDA Primary Care Unavailable AICHHOLZ, ELECTRIC GOLF CART REPAIRER ADELAIDA Admitting Unavailable AICHHOLZ, ELECTRIC GOLF CART REPAIRER ADELAIDA Attending Unavailable AICHHOLZ, ELECTRIC GOLF CART REPAIRER ADELAIDA Primary Care Unavailable AICHHOLZ, ELECTRIC GOLF CART REPAIRER ADELAIDA Admitting Unavailable AICHHOLZ, ELECTRIC GOLF CART REPAIRER ADELAIDA Attending Unavailable AICHHOLZ, ELECTRIC GOLF CART REPAIRER ADELAIDA Primary Care Unavailable AICHHOLZ, ELECTRIC GOLF CART REPAIRER ADELAIDA Consulting Unavailable ZIEBER, DR KINGSLEY Atkins Consulting Unavailable HALKER ., ARIAN Admitting Unavailable HALKER ., ARIAN Attending Unavailable AICHHOLZ, ELECTRIC GOLF CART REPAIRER ADELAIDA Primary Care Unavailable Aichholz, Adelaida J Primary Care Provider [phone] MD Gaudencio Monk Admit Provider [phone] MD Gaudencio Monk Attending Provider JOHANN Vieira Other Provider Unavailable JOHANN Pina Other Provider Unavailable JOHANN Hurtado Other Provider Unavailable JOHANN Crooks Other Provider Unavailable JOHANN Mejias Other Provider Unavailable JOHANN Kim Other Provider Unavailable MD Walker Pringle Other Provider Dilans, AUDIT OFFICER Adelaida Huddleston Other Provider DO Jessica Murillo Other Provider MD Obdulio Bragg Other Provider DO Joon Cristina Other Provider MD Torin Robert Other Provider MD Dawn Barrera Other Provider [phone] Karlene ANP- Mari Other Provider [phone] MD Sofi Almanzar Other Provider MD Sharad [...] Provider MD Jace Graham Attending Provider Sheyla CONICAL MIXER, Adelaida Unavailable José Luis Roberts MD Primary Care Provider [phone] Sheyla CONICAL MIXER, Adelaida Unavailable Daniela GRAHAM, Miriam Unavailable Moises CAMPBELL, Diana Unavailable Unavailable Unallocated , Noms Provider Primary Care Yadirai kellee Sheyla CONICAL MIXER, Adelaida Unavailable José Luis Roberts MD Primary Care Provider [phone] Bong Rosado MA Unavailable Unavailable Aida CAMPBELL, Mathew Unavailable Unavailable Juany Yi Unavailable Bong Rosado MA Unavailable ADELAIDA CARRION J Primary Care Unavailable AKSHAT BLACKWELL Consulting Unavailable Giedraitis , Andrius King Attending Unavailable Giedraitis , Andrius Vytautargelia Attending Unavailable Giedraitis , Andrius Vytautargelia Attending Unavailable Giedraitis , Andrius Vytautargelia Attending Unavailable Giedraitis , Andrius Vytautargelia Attending Unavailable Giedraitis , Andrius Vytautargelia Attending Unavailable Giedraitis , Andrius Vytautargelia Attending Unavailable Dat Monkelrahman Admitting Unavailab le Eduardo Monk Attending Unavailab le Aichbob, Adelaida J Primary Care Unavailable Aichbob, Adelaida J Primary Care Unavailable Rob Lake Attending Unavailable Malinda Rosales Consulting Unavailable Delta Gan Admitting Unavailable David Foster Consulting Unavailable Daniela Miriam Consulting Unavailable GarlandKingsley pérez Consulting Unavailable Kar Burt Consulting Unavailab Dennis Hicks Consulting Unavailable Juany Caballero Consulting Unavailable Inna Melendez Consulting Unavailable Rocio Duncan Consulting Unavailable Chuck Hinkle Consulting Unavailable ADELAIDA CARRION Attending Unavailable JUANY LEGGETT Attending Unavailable JUANY LEGGETT Attending Unavailable ADELAIDA CARRION Attending Unavailable ADELAIDA CARRION Attending Unavailable ADELAIDA CARRION Attending Unavailable HARRISON HOYOS Referring Unavailable HARRISON HOYOS Attending Unavailable SONAM BROWN Attending Unavailable JUANY CABALLERO Attending Unavailable AICJANIYA, ADELAIDA Attending Unavailable SHEYLA, ADELAIDA Attending Unavailable SHEYLA, ADELAIDA Attending Unavailable ADOLPH, JUANY Attending Unavailable RACHEL MITCHELL Attending Unavailable DAVID FOSTER Attending Unavailable ADOLPH, JUANY Referring Unavailable AICMarquesHOLNena, ADELAIDA Attending Unavailable RACHEL MITCHELL Referring Unavailable Allergies Allergy Classification Reported Allergen(s) Allergy Type Date of Onset Reaction(s) Facility (7 sources) Adhesive Tape; Translations: [ADHESIVE TAPE] Propensity to adverse reactions (disorder) 04-06-19 14 rash [facility] Repository (3 sources) levETIRAcetam; Translations: [KEPPRA] Drug Allergy 07-02-19 19 [facility] Repository (3 sources) milnacipran; Translations: [SAVELLA] Drug Allergy 03-14-20 13 [facility] Repository (1 source) Penicillin; Translations: [PENICILLIN] Drug Allergy 01-16-20 18 [facility] Repository (5 sources) Prochlorperazin e; Translations: [COMPAZINE] Drug Allergy 03-14-20 13 agitation [facility] Repository (20 sources) Tetracycline; Translations: [TETRACYCLINE] Drug Allergy 04-06-19 13 Hives, Unknown [facility] Repository (4 sources) Penicillins Drug allergy (disorder) 04-06-19 13 Unknown Reaction [facility] Repository (20 sources) levETIRAcetam; Translations: [levetiracetam] Drug Allergy 12-13-19 22 Hallucinations , Other [facility] (20 sources) milnacipran; Translations: [milnacipran] Drug Allergy 12-13-19 22 hives, Hallucinations , Other, Unknown [facility] (20 sources) Prochlorperazin e; Translations: [prochlorperazi ne] Drug Allergy 12-13-19 22 Unknown, [facility] (2 sources) Penicillin G Drug Allergy as a child [facility] Other (2 sources) Tetracaine Drug Allergy Unknown [facility] Other (20 sources) Penicillins Drug Intolerance 12-13-19 22 Anaphylaxis [facility] (20 sources) Other Propensity to adverse reactions 12-13-19 22 Other [facility] (20 sources) Wound Dressing Adhesive Drug Allergy 09-20-19 23 Rash, Unknown [facility] (20 sources) Eszopiclone Drug Allergy 09-21-19 24 Hallucinations , Anaphylaxis [facility] (1 source) Penicillin Drug Allergy 03-02-20 [facility] Repository (1 source) Penicillins Drug allergy (disorder) 03-02-20 [facility] Repository (1 source) Tetracaine Drug Allergy 03-02-20 [facility] Repository Medications Current Medications Medication Drug Class(es) Dates Sig (Normalized) Sig (Original) amLODIPine 10 mg oral tablet (20 sources) Dihydropyridine Calcium Channel Jim Start: 10-05-2023 End: 11-12-2024 take 1 tablet by mouth once daily amLODIPine (Norvasc) 10 MG tablet Indications: Essential (primary) hypertension Take 1 tablet (10 mg) by mouth Daily 30 tablet 5 10/13/2024 Active Start: 11-17-2022 take 10 mg by [...] D PO) Citracal + D 0 Active Cannabinoids (medical cannabis) (4 sources) Cannabinoids (medical cannabis) Take 1 each by mouth Active cariprazine 4.5 mg oral capsule (20 sources) Atypical Antipsychotic Start: 09-01-19 take 1 capsule by mouth once daily Cariprazine HCl (Vraylar) 4.5 MG capsule Take 4.5 mg by mouth Daily 08/31/2024 Active Start: 03-10-2024 End: 10-13-2024 Vraylar 3 MG capsule 024 10/13/2024 Discontinued (Therapy completed) Start: 09-21-2023 take 1 capsule by mo uth once daily Cariprazine HCl (Vraylar) 4.5 MG capsule Take 4.5 mg by mouth Daily 09/21/2023 Active Start: 11-17-2022 take 1 capsule by mo uth once daily Cariprazine (Vraylar) 4.5 mg capsule Active 4.5 MG PO Daily November 16, 2022 11:00pm carvedilol 12.5 mg oral tablet (20 sources) alpha-Adrenergic Jim, beta-Adrenergic Jim Start: 10-05-2023 End: 11-12-2024 take 1 tablet by mouth in the morning carvedilol (Coreg) 12.5 MG tablet Indications: Essential (primary) hypertension Take 1 tablet (12.5 mg) by mouth in the morning and 1 tablet (12.5 mg) in the evening. Take with meals. 60 tablet 5 10/13/2024 Active Start: 04-29-2023 End: 05-29-2023 take 1 [...] 27, 2018 12:00am November 17, 2022 12:45am diazePAM 10 mg oral tablet (2 sources) Benzodiazepine Start: 10-31-2024 diazePAM (Valium) 10 MG tablet Indications: Claustrophobia 1 tab orally 30-60 mins before procedure as need for anxiety, claustrophobia. 1 tablet 10/31/2024 Active diclofenac sodium 50 mg delayed release oral tablet (12 sources) Nonsteroidal Anti-inflammatory Drug Start: 07-24-2024 End: 10-13-2024 diclofenac (Voltaren) 50 MG EC tablet 07/24/2024 10/13/2024 Discontinued (Therapy completed) DULoxetine 60 mg delayed release oral capsule [...] Active fexofenadine hydrochloride 180 mg oral tablet (15 sources) Histamine-1 Receptor Antagonist Start: 08-16-2024 End: 11-12-2024 take 1 tablet by mouth once daily fexofenadine (Naida) 180 MG tablet Indications: Allergic rhinitis, unspecified seasonality, unspecified trigger Take 1 tablet (180 mg) by mouth Daily 30 tablet 5 10/13/2024 Active fluconazole 100 mg oral tablet (20 [...] spray (20 sources) Corticosteroid Start: 02-29-2024 End: 11-12-2024 take 2 spray(s) nasal route once daily fluticasone (Flonase) 50 MCG/ACT nasal spray Indications: Allergic rhinitis, unspecified Administer 2 sprays into each nostril Daily 16 g 5 10/13/2024 Active Start: 10-05-2023 End: 02-03-2024 take 2 [...] and 2 at HS. . 0 Active Iron-Vitamin C (IRON 100/C PO) (4 sources) Iron-Vitamin C ( IRON 100/C PO) Take by mouth Active ketoconazole 20 mg/ml topical cream (4 sources) Azole Antifungal ketoconazole (NIZOral) 2 % cream Apply 1 application topically in the morning. 0 Active lacosamide 50 mg oral tablet (15 sources) Anti-epileptic Agent Start: 03-10-20 End: 04-12-19 take 1 tablet by mouth in the morning lacosamide (Vimpat) 50 MG tablet Indications: Transient alteration of awareness Take 1 tablet (50 mg) by mouth in the morning and 1 tablet (50 mg) before bedtime. Due now. 60 tablet 2 04/12/2024 Active LORazepam 1 mg oral tablet (6 sources) Benzodiazepine Start: 08-27-19 End: 11-15-19 take 1 tablet by mouth every week as needed for anxiety LORazepam (Ativan) 1 MG tablet TAKE 1 TABLET BY MOUTH once a week NEEDED for acute or severe anxiety 08/26/2024 11/14/2024 Discontinued (Side effects) losartan potassium 100 mg oral tablet (20 sources) Angiotensin 2 Receptor Jim Start: 10-05-19 End: 11-13-19 take 1 tablet by mouth once daily losartan (Cozaar) 100 MG tablet Indications: Essential (primary) hypertension Take 1 tablet (100 mg) by mouth Daily 30 tablet 5 10/13/2024 Active Start: 11-17-2022 take 100 mg by mouth once lissett y Losartan Active 100 MG PO Daily November 16, 2022 11:00pm Magnesium (20 sources) Magnesium 400 MG capsule Pt taking OTC([employer]) Active Magnesium 400 MG capsule magnesium [...] s-Minerals (BARIATRIC MULTIVITAMINS/IRON PO) Pt taking OTC (EverTune) Active Multiple Vitamin s-Minerals (BARIATRIC MULTIVITAMINS/IRON PO) Bariatric Multivitamins/Iron 0 Active Zolngwejgfmz-Knc-Azmn-Fa-Vit K (Bariatric Multivitamins) 45 mg iron- 800 mcg-120 mcg Capsule (2 sources) Start: 11-17-2022 take 1 capsule by mouth once daily Nfyjspvkpygz-Qgp-Wllm-Fa-Vit K (Bariatric Multivitamins) 45 mg iron- 800 mcg-120 mcg Capsule Active 1 CAP PO Daily November 16, 2022 11:00pm Start: 11-17-2022 take 1 capsule by mo uth once daily Exurkojwadtp-Jvc-Bvgc-Fa-Vit K (Bariatri c Multivitamins) 45 mg iron- 800 mcg-120 mcg Capsule Active 1 CAP PO Daily November 17, 2022 12:00am nystatin [id number] unt/ml topical cream (20 sources) Polyene Antifungal Start: 03-07-2024 nystatin (M ycostatin) cream 03/07/2024 Active nystatin (Mycost atin) 428712 UNIT/GM powder Apply 1 application topically in [...] sources) Proton Pump Inhibitor Start: 10-05-2023 End: 11-12-2024 take 1 capsule by mouth before mealtime omeprazole (PriLOSEC) [address] capsule Indications: Gastro-esophageal reflux disease without esophagitis Take 1 capsule (20 mg) by mouth in the morning. Take before meals. 30 capsule 5 10/13/2024 Active Start: 11-17-2022 take 20 mg by mouth once daily Omeprazole Active 20 MG PO Daily November 16, 2022 11:00pm rOPINIRole 3 mg oral tablet (20 sources) Nonergot Dopamine Agonist Start: 07-26-2024 End: 10-24-2024 take 1 tablet by mouth at bedtime rOPINIRole (Requip) 3 MG tablet Indications: Restless Leg Syndrome Take 1 tablet (3 mg) by mouth at bedtime 90 tablet 2 07/26/2024 Active Start: 07-12-2024 End: 10-10-2024 take 1 [...] (20 sources) Aldosterone Antagonist Start: 03-16-2024 End: 11-12-2024 take 1 tablet by mouth once daily spironolactone (Aldactone) 50 MG tablet Indications: Bilateral lower extremity edema Take 1 tablet (50 mg) by mouth Daily 30 tablet 5 10/13/2024 Active Start: 11-02-2023 End: 03-16-2024 take 2 [...] 03-16-20 24 05-18-2023 Chronic Chronic kidney disease (20 sources) Chronic kidney disease stage 3A ; Translations: [Chronic kidney disease, stage 3a (HCC)] Onset: 05-12-19 25 05-12-2024 Chronic Conduction disorders (20 sources) EKG: right bundle branch block; Translations: [Unspecified right bundle-branch block] Onset: 03-16-20 24 03-16-2024 Chronic Deficiency and other anemia (20 sources) Anemia; Translations: [Anemia, unspecified] Onset: 05-18-19 24 05-18-2023 Episodic Diabetes mellitus without complication (2 sources) Diabetes mellitus; Translations: [Type 2 diabetes mellitus without complications] 05-31-2018 Chronic Diabetes mellitus without complication (20 sources) Prediabetes; Translations: [Prediabetes] Onset: 08-01-1905-18-2023 Episodic [...] Onset: 08-26-1912-08-2023 Chronic Other nervous system disorders (20 sources) [...] of awareness] 04-12-2024 Episodic Residual codes; unclassified (8 sources) Disorientated; Translations: [Disorientation, unspecified] Onset: 10-14-1910-13-2024 Episodic Spondylosis; intervertebral disc disorders; other back [...] obstruction or gangrene] Onset: 05-18-2023 05-18-2023 Episodic Chronic obstructive pulmonary disease and bronchiectasis (20 sources) Bronchitis; Translations: [Bronchitis, not specified as acute or chronic] Onset: 07-27-2024 Resolved: 10-13-2024 07-27-2024 Episodic Conditions associated with dizziness or vertigo (20 sources) Benign paroxysmal positional vertigo; Translations: [Benign paroxysmal vertigo, unspecified ear] Onset: 05-18-2023 Resolved: 03-16-2024 05-18-2023 Episodic E Codes: Cut/pierceb (1 source) [...] Other usp (current) drug therapy; Translations: [[facility] CURRENT [...] Onset: 09-12-2021 Episodic Other upper respiratory infections (20 sources) Acute upper respiratory infection; Translations: [Acute upper respiratory infection, unspecified] Onset: 06-14-2024 Resolved: 11-14-2024 06-14-2024 Episodic Residual codes; unclassified (1 source) [...] - bilat eral GE 2 Viewson 09-29-[address] [place] [address] XRay Report Signed Patient: MICHELLE BE MR#: [id number] : 1960 Acct:[id number] Age/Sex: 63 / F ADM Date: 09/29/24 Loc: [facility] Attending Dr: Elizabeth Culp NP Ordering Physician: Elizabeth Culp NP Date of Service: 09/29/24 Procedure(s): XR hip BHUMI Accession Number(s): [id number] cc: Adelaida Carrion NP; Elizabeth Culp NP The [address] [address] Patient Name: MICHELLE BE MRN: [facility]:[id number] date: 1960 Sex: F Assigned Patient Location: [facility] Current Patient Location: [facility] Accession/Order Number: [id number] Exam Date: 09/29/2024 11:20 Report Date: 09/29/2024 [...] Bernal M.D. 09/29/2024 11:23 AM Dictation Location: [place] [address] Electronically authenticated by: [id number] Y Date: 09/29/2024 11:23 Dictated By: Edith Bernal M.D. Signed By: 09/29/24 1126 DD/ 1123 TD/TT: Auto Glass Worker: [facility] Radiology, Radiologist, - 09/29/[address] [address] XRay Report Signed Patient: MICHELLE BE MR#: [id number] : 1960 Acct:[id number] Age/Sex: 63 / F ADM Date: 09/29/24 Loc: [facility] Attending Dr: Elizabeth Culp NP Ordering Physician: Elizabeth Culp NP Date of Service: 09/29/24 Procedure(s): XR hip BHUMI Accession Number(s): [id number] cc: Adelaida Carrion NP; Elizabeth Culp NP [place] [address] Patient Name: MICHELLE BE MRN: [id number] date: 1960 Sex: F Assigned Patient Location: [facility] Current Patient Location: [facility] Accession/Order Number: [id number] Exam Date: 09/29/2024 11:20 Report Date: 09/29/2024 [...] NO ACUTE BONY FINDINGS. Impression dictated by: dEith Bernal M.D. 09/29/2024 11:23 AM Dictation Location: [place] [address] Electronically authenticated by: [id number] Y Date: 09/29/2024 11:23 Dictated By: Edith Bernal M.D. Signed By: 09/29/24 1126 DD/ 1123 TD/TT: Auto Glass Worker: [facility] Radiology Study observation (narrative) [facility] XR Pelvis AP and Hip - bilat eral GE 2 ViewsOrdered By: Radiologist Radiology on 09-29-2024 [facility] Work Phone: CT LUNG SCREENING LOW DOSEon 09-26-[address] [address] [address] Scan Report Signed Patient: MICHELLE BE MR#: [id number] : 1960 Acct:[id number] Age/Sex: 63 / F ADM Date: 09/26/24 Loc: [facility] Attending Dr: Adelaida Carrion NP Ordering Physician: Adelaida Carrion NP Date of Service: 09/26/24 Procedure(s): CT lung screening low-dose Accession Number(s): [id number] cc: Adelaida Carrion NP [address] [address] Patient Name: MICHELLE BE MRN: [id number] date: 1960 Sex: F Assigned Patient Location: [facility] Current Patient Location: [facility] Accession/Order Number: [id number] Exam Date: 09/26/2024 16:58 Report Date: 09/26/2024 [...] Guadalupe M.D. 09/26/2024 5:02 PM Dictation Location: [place] [address] Electronically authenticated by: [id number] Y Date: 09/26/2024 17:02 Dictated By: Willi Guadalupe M.D. Signed By: 09/26/241703 DD/ 01 TD/TT: Auto Glass Worker: [facility] Radiology, Radiologist, MD - 09/26/2024 [place] [address] CT Scan Report Signed Patient: MICHELLE BE MR#: [id number] : 1960 Acct:[id number] Age/Sex: 63 / F ADM Date: 09/26/24 [facility] Attending Dr: Adelaida Carrion NP Ordering Physician: Adelaida Carrion NP Date of Service: 09/26/24 Procedure(s): CT lung screening low-dose Accession Number(s): [id number] cc: Adelaida Carrion NP The [place] [id number] Patient Name: MICHELLE BE MRN: [facility]:[id number] date: 1960 Sex: F Assigned Patient Location: [facility] Current Patient Location: RAD Accession/Order Number: [id number] Exam Date: 09/26/2024 16:58 Report Date: 09/26/2024 [...] Guadalupe M.D. 09/26/2024 5:02 PM Dictation Location: [place] [address] Electronically authenticated by: [id number] Y Date: 09/26/2024 17:02 Dictated By: Willi Guadalupe M.D. Signed By: 09/26/241703 DD/ 01 TD/TT: Auto Glass Worker: [facility] Radiology Study observation (narrative) [facility] CT LUNG SCREENING LOW DOSEOr dered By: Radiologist Radiology on 09-26-2024 [facility] Work Phone: MM TOMOSYNTHESIS SCREENING B Ion 09-26-2024 [place] [address] Mammography Report Signed Patient: MICHELLE BE MR#: [id number] : 1960 Acct:[id number] Age/Sex: 63 / F ADM Date: 09/26/24 Loc: MAMMO Attending Dr: Adelaida Carrion NP Ordering Physician: Adelaida Carrion NP Results: Date of Service: 09/26/24 Follow Up: Procedure(s): MM tomosynthesis screening BI Accession Number(s): [id number] cc: Adelaida Carrion NP Patient Name: MICHELLE BE MR#: [id number] : 1960 Exam Date: 09/26/2024 Ordering Doctor: [...] Treatments None Family Cancers None LOCATION: [facility] BREAST COMPOSITION: There are scattered areas of [...] By: Olu Grover M.D. Signed By: 09/26/24 164 DD/ 41 TD/TT: Auto Glass Worker: [facility] Radiology, Radiologist, MD - 09/26/2024 [place] [address] Mammography Report Signed Patient: MICHELLE BE MR#: [id number] : 1960 Acct:[id number] Age/Sex: 63 / F ADM Date: 09/26/24 Loc: MAMMO Attending Dr: Adelaida Carrion NP Ordering Physician: Adelaida Carrion NP Results: Date of Service: 09/26/24 Follow Up: Procedure(s): MM tomosynthesis screening BI Accession Number(s): [id number] cc: Adelaida Carrion NP Patient Name: MICHELLE BE MR#: [id number] : 1960 Exam Date: 09/26/2024 Ordering Doctor: [...] Treatments None Family Cancers None LOCATION: [facility] BREAST COMPOSITION: There are scattered areas of [...] M.D. 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: [facility] Radiology Study observation (narrative) [facility] MM TOMOSYNTHESIS SCREENING B IOrdered By: Radiologist Radiology on 09-26-2024 [facility] Work Phone: XR SHOULDER RT MIN 2Von 09-05 [place] [address] XRay Report Signed Patient: MICHELLE BE MR#: [id number] : 1960 Acct:[id number] Age/Sex: 63 / F ADM Date: 09/26/24 Loc: RAD Attending Dr: Elizabeth Culp NP Ordering Physician: Elizabeth Culp NP Date of Service: 09/26/24 Procedure(s): XR shoulder RT min 2V Accession Number(s): [id number] cc: Adelaida Carrion NP; Elizabeth Culp NP The [place] [id number] Patient Name: MICHELLE BE MRN: [facility]:[id number] date: 1960 Sex: F Assigned Patient Location: [facility] Current Patient Location: RAD Accession/Order Number: [id number] Exam Date: 09/26/2024 13:34 Report Date: 09/26/2024 [...] Guadalupe M.D. 09/26/2024 1:35 PM Dictation Location: [place] [address] Electronically authenticated by: [id number] Y Date: 09/26/2024 13:35 Dictated By: Willi Guadalupe M.D. Signed By: 09/26/24 1338 DD/ 34 TD/TT: Auto Glass Worker: [facility] Radiology, Radiologist, - 09/26/2024 The [place] [id number] XRay Report Signed Patient: MICHELLE BE MR#: [id number] : 1960 Acct:[id number] Age/Sex: 63 / F ADM Date: 09/26/24 Loc: [facility] Attending Dr: Elizabeth Culp NP Ordering Physician: Elizabeth Culp NP Date of Service: 09/26/24 Procedure(s): XR shoulder RT min 2V Accession Number(s): [id number] cc: Adelaida Carrion NP; Elizabeth Culp NP [place] [address] Patient Name: MICHELLE BE MRN: [id number] date: 1960 Sex: F Assigned Patient Location: [facility] Current Patient Location: [facility] Accession/Order Number: [id number] Exam Date: 09/26/2024 13:34 Report Date: 09/26/2024 [...] Guadalupe M.D. 09/26/2024 1:35 PM Dictation Location: [place] [address] Electronically authenticated by: [id number] Y Date: 09/26/2024 13:35 Dictated By: Willi Guadalupe M.D. Signed By: 09/26/24 1338 DD/ 1335 TD/TT: Auto Glass Worker: [facility] Radiology Study observation (narrative) [facility] XR SHOULDER RT MIN 2VOrdered By: Radiologist Radiology on 09-26-2024 [facility] Work Phone: HbA1c (Bld) [Mass fraction]o n 08-16-2024 Interpretation and review of laboratory results Normal [facility] - Hematology and Cell countson 08-16-2024 HbA1c (Bld) [Mass fraction] 5.6 % [facility] Complete Blood Count Auto Di ffon 03-05-2024 Basophils (Bld) [#/Vol] 0.0 10*3/uL Normal 0.0-0.2 [facility] Comment on above: Result Comment: PERF ORMED BY: [place] [address] PATHOLOGIST CANDY MAKER ADIEL AGUSTIN M.D. Performed By: #### C BC, MG, CMP #### [address] Basophils/100 WBC (Bld) 0.5 % Normal . [facility] Comment on above: Performed By: #### C BC, MG, CMP #### [address] Eosinophils (Bld) [#/Vol] 0.2 10*3/uL Normal 0.0-0.45 [facility] Comment on above: Performed By: #### C BC, MG, CMP #### [address] Eosinophils/100 WBC (Bld) 2.2 % Normal . [facility] Comment on above: Performed By: #### C BC, MG, CMP #### [address] Erythrocyte distribution width (RBC) [Ratio] 14.5 % Normal 11.9-15.3 [facility] Comment on above: Performed By: #### C BC, MG, CMP #### [address] Hematocrit (Bld) [Volume fraction] 43.0 % Normal 34.0-46.4 [facility] Comment on above: Performed By: #### C BC, MG, CMP #### [address] Hemoglobin (Bld) [Mass/Vol] 14.3 g/dL Normal 11.8-15.4 [facility] Comment on above: Performed By: #### C BC, MG, CMP #### [address] Lymphocytes (Bld) [#/Vol] 1.8 10*3/uL Normal 1.00-4.8 [facility] Comment on above: Performed By: #### C BC MG, CMP #### [address] Lymphocytes/100 WBC (Bld) 18.9 % Normal . [facility] Comment on above: Performed By: #### C BC, MG, CMP #### [address] MCH (RBC) [Entitic mass] 29.0 pg Normal 24.7-34.3 [facility] Comment on above: Performed By: #### C BC, MG, CMP #### [address] MCV (RBC) [Entitic vol] 87.0 fL Normal 80-100 [facility] Comment on above: Performed By: #### C BC, MG, CMP #### [address] Mean Corpuscular HGB Conc 33.4 g/dL Normal 32.0-35.0 [facility] Comment on above: Performed By: #### C BC, MG, CMP #### [address] Monocytes (Bld) [#/Vol] 0.5 10*3/uL Normal 0.0-0.8 [facility] Comment on above: Performed By: #### C BC, MG, CMP #### [place] [id number] [place] Monocytes/100 WBC (Bld) 5.5 % Normal . [facility] Comment on above: Performed By: #### C BC, MG, CMP #### [facility] [address] Neutrophils (Bld) [#/Vol] 7.0 10*3/uL Normal 1.8-7.7 [facility] Comment on above: Performed By: #### C BC, MG, CMP #### [address] Neutrophils/100 WBC (Bld) 72.9 % Normal . [facility] Comment on above: Performed By: #### C BC, MG, CMP #### [address] NRBC% 0.0 /100{WBC} Normal 0-0.5 [facility] Comment on above: Performed By: #### C BC, MG, CMP #### [address] Platelet mean volume (Bld) [Entitic vol] 8.9 fL Normal 6.3-10.7 [facility] Comment on above: Performed By: #### C BC, MG, CMP #### [place] [id number] [place] Platelets (Bld) [#/Vol] 289 10*3/uL Normal 150-450 [facility] Comment on above: Performed By: #### C BC, MG, CMP #### [place] [id number] [place] RBC (Bld) [#/Vol] 4.94 10*6/uL Normal 3.60-5.00 [facility] Comment on above: Performed By: #### C BC, MG, CMP #### [place] [id number] [place] WBC (Bld) [#/Vol] 9.6 10*3/uL Normal 3.8-11.6 The [facility] Comment on above: Performed By: #### C BC, MG, CMP #### [address] Comprehensive Metabolic Pane [place] 03-05-2024 Albumin [Mass/Vol] 4.4 g/dL Normal 3.5-5.7 [facility] Comment on above: Performed By: #### C BC, MG, CMP #### [address] Albumin/Globulin [Mass ratio] 1.3 {ratio} Normal [facility] Comment on above: Performed By: #### C BC, MG, CMP #### [address] ALP [Catalytic activity/Vol] 79 U/L Normal 34-104 [facility] Comment on above: Performed By: #### C BC, MG, CMP #### [address] ALT [Catalytic activity/Vol] 23 U/L Normal 7-52 [facility] Comment on above: Performed By: #### C BC, MG, CMP #### [address] Anion gap [Moles/Vol] 15.4 mmol/L High 6.0-15.0 [facility] Comment on above: Performed By: #### C BC, MG, CMP #### [address] AST [Catalytic activity/Vol] 36 U/L Normal 13-39 [facility] Comment on above: Performed By: #### C BC, MG, CMP #### [address] Bilirubin [Mass/Vol] 0.4 mg/dL Normal 0.3-1.0 [facility] Comment on above: Performed By: #### C BC, MG, CMP #### [address] Calcium [Mass/Vol] 9.5 mg/dL Normal 8.6-10.3 [facility] Comment on above: Performed By: #### C BC, MG, CMP #### [facility] [address] Chloride [Moles/Vol] 106 mmol/L Normal 98-107 [facility] Comment on above: Performed By: #### C BC, MG, CMP #### [facility] [address] CO2 [Moles/Vol] 23.1 mmol/L Normal 21.0-31.0 [facility] Comment on above: Performed By: #### C BC, MG, CMP #### [address] Creatinine [Mass/Vol] 0.96 mg/dL Normal 0.60-1.20 [facility] Comment on above: Performed By: #### C BC, MG, CMP #### [address] Creatinine Clr Calc Pharmacy 84.51 Normal [facility] Comment on above: Performed By: #### C BC, MG, CMP #### [place] [id number] [place] GFR/1.73 sq M.predicted MDRD (S/P/Bld) [Vol rate/Area] mL/min/{1.73_m2} Normal [facility] Comment on above: Performed By: #### C BC, MG, CMP #### [address] Globulin (S) [Mass/Vol] 3.3 g/dL Normal [facility] Comment on above: Performed By: #### C BC, MG, CMP #### [address] Glucose [Mass/Vol] 133 mg/dL High 70-100 [facility] Comment on above: Result Comment: [facility] Glucose Reference Range is dependent on time and content of last meal. Glucose of more than 200 mg/dL in a nonstressed, ambulatory subject supports the diagnosis of Diabetes Mellitus. ADA recommended reference range Performed By: #### C BC, MG, CMP #### [address] Potassium [Moles/Vol] 3.5 mmol/L Normal 3.5-5.1 [facility] Comment on above: Performed By: #### C BC, MG, CMP #### [address] Protein [Mass/Vol] 7.7 g/dL Normal 6.4-8.9 [facility] Comment on above: Performed By: #### C BC, MG, CMP #### [address] Sodium [Moles/Vol] 141 mmol/L Normal 136-145 [facility] Comment on above: Performed By: #### C BC, MG, CMP #### [address] Urea nitrogen [Mass/Vol] 18 mg/dL Normal 7-25 [facility] Comment on above: Performed By: #### C BC, MG, CMP #### [address] Magnesiumon 03-05-2024 Magnesium [Mass/Vol] 2.0 mg/dL Normal 1.9-2.7 [facility] Comment on above: Result Comment: PERF ORMED BY: [place] [address] PATHOLOGIST CANDY MAKER ADIEL AGUSTIN M.D. Performed By: #### C BC, MG, CMP #### [address] Complete Blood Count Auto Di ffon 03-04-2024 Basophils (Bld) [#/Vol] 0.1 10*3/uL Normal 0.0-0.2 [facility] Comment on above: Result Comment: PERF ORMED BY: [place] [address] PATHOLOGIST CANDY MAKER ADIEL AGUSTIN M.D. Performed By: #### C MP, MG, CBC #### [place] [id number] [place] Basophils/100 WBC (Bld) 0.6 % Normal . [facility] Comment on above: Performed By: #### C MP, MG, CBC #### [address] Eosinophils (Bld) [#/Vol] 0.2 10*3/uL Normal 0.0-0.45 [facility] Comment on above: Performed By: #### C MP, MG, CBC #### [address] Eosinophils/100 WBC (Bld) 1.9 % Normal . [facility] Comment on above: Performed By: #### C MP, MG, CBC #### [address] Erythrocyte distribution width (RBC) [Ratio] 14.6 % Normal 11.9-15.3 [facility] Comment on above: Performed By: #### C MP, MG, CBC #### [address] Hematocrit (Bld) [Volume fraction] 43.5 % Normal 34.0-46.4 [facility] Comment on above: Performed By: #### C MP, MG, CBC #### [address] Hemoglobin (Bld) [Mass/Vol] 14.4 g/dL Normal 11.8-15.4 [facility] Comment on above: Performed By: #### C MP, MG, CBC #### [address] Lymphocytes (Bld) [#/Vol] 1.8 10*3/uL Normal 1.00-4.8 [facility] Comment on above: Performed By: #### C MP, MG, CBC #### [address] Lymphocytes/100 WBC (Bld) 18.0 % Normal . [facility] Comment on above: Performed By: #### C MP, MG, CBC #### [address] MCH (RBC) [Entitic mass] 28.8 pg Normal 24.7-34.3 [facility] Comment on above: Performed By: #### C MP, MG, CBC #### [address] MCV (RBC) [Entitic vol] 87.0 fL Normal 80-100 [facility] Comment on above: Performed By: #### C MP, MG, CBC #### [address] Mean Corpuscular HGB Conc 33.2 g/dL Normal 32.0-35.0 [facility] Comment on above: Performed By: #### C MP, MG, CBC #### [address] Monocytes (Bld) [#/Vol] 0.8 10*3/uL Normal 0.0-0.8 [facility] Comment on above: Performed By: #### C MP, MG, CBC #### [address] Monocytes/100 WBC (Bld) 8.2 % Normal . [facility] Comment on above: Performed By: #### C MP, MG, CBC #### [address] Neutrophils (Bld) [#/Vol] 7.3 10*3/uL Normal 1.8-7.7 [facility] Comment on above: Performed By: #### C MP, MG, CBC #### [address] Neutrophils/100 WBC (Bld) 71.3 % Normal . [facility] Comment on above: Performed By: #### C MP, MG, CBC #### [address] NRBC% 0.1 /100{WBC} Normal 0-0.5 [facility] Comment on above: Performed By: #### C MP, MG, CBC #### [place] [id number] [place] Platelet mean volume (Bld) [Entitic vol] 8.8 fL Normal 6.3-10.7 [facility] Comment on above: Performed By: #### C MP, MG, CBC #### [facility] [address] Platelets (Bld) [#/Vol] 334 10*3/uL Normal 150-450 [facility] Comment on above: Performed By: #### C MP, MG, CBC #### [address] RBC (Bld) [#/Vol] 5.01 10*6/uL High 3.60-5.00 [facility] Comment on above: Performed By: #### C MP, MG, CBC #### [address] WBC (Bld) [#/Vol] 10.3 10*3/uL Normal 3.8-11.6 [facility] Comment on above: Performed By: #### C MP, MG, CBC #### [address] Comprehensive Metabolic Pane [place] 03-04-2024 Albumin [Mass/Vol] 4.5 g/dL Normal 3.5-5.7 [facility] Comment on above: Performed By: #### C MP, MG, CBC #### [address] Albumin/Globulin [Mass ratio] 1.4 {ratio} Normal [facility] Comment on above: Performed By: #### C MP, MG, CBC #### [address] ALP [Catalytic activity/Vol] 79 U/L Normal 34-104 [facility] Comment on above: Performed By: #### C MP, MG, CBC #### [address] ALT [Catalytic activity/Vol] 19 U/L Normal 7-52 [facility] Comment on above: Performed By: #### C MP, MG, CBC #### [facility] [address] Anion gap [Moles/Vol] 11.4 mmol/L Normal 6.0-15.0 [facility] Comment on above: Performed By: #### C MP, MG, CBC #### [facility] [address] AST [Catalytic activity/Vol] 37 U/L Normal 13-39 [facility] Comment on above: Performed By: #### C MP, MG, CBC #### [facility] [address] [place] [address] [place] Bilirubin [Mass/Vol] 0.5 mg/dL Normal 0.3-1.0 [facility] Comment on above: Performed By: #### C MP, MG, CBC #### [facility] [address] Calcium [Mass/Vol] 9.6 mg/dL Normal 8.6-10.3 [facility] Comment on above: Performed By: #### C MP, MG, CBC #### [place] [id number] [place] Chloride [Moles/Vol] 107 mmol/L Normal 98-107 [facility] Comment on above: Performed By: #### C MP, MG, CBC #### [facility] [address] [place] [address] [place] CO2 [Moles/Vol] 27.4 mmol/L Normal 21.0-31.0 [facility] Comment on above: Performed By: #### C MP, MG, CBC #### [facility] [address] [place] [address] [place] Creatinine [Mass/Vol] 0.91 mg/dL Normal 0.60-1.20 [facility] Comment on above: Performed By: #### C MP, MG, CBC #### [facility] [address] [place] [address] [place] Creatinine Clr Calc Pharmacy 90.12 Normal [facility] Comment on above: Performed By: #### C MP, MG, CBC #### [address] GFR/1.73 sq M.predicted MDRD (S/P/Bld) [Vol rate/Area] mL/min/{1.73_m2} Normal [facility] Comment on above: Performed By: #### C MP, MG, CBC #### [address] Globulin (S) [Mass/Vol] 3.2 g/dL Normal [facility] Comment on above: Performed By: #### C MP, MG, CBC #### [address] Glucose [Mass/Vol] 100 mg/dL Normal 70-100 [facility] Comment on above: Result Comment: [place] Glucose Reference Range is dependent on time and content of last meal. Glucose of more than 200 mg/dL in a nonstressed, ambulatory subject supports the diagnosis of Diabetes Mellitus. ADA recommended reference range Performed By: #### C MP, MG, CBC #### [address] Potassium [Moles/Vol] 3.8 mmol/L Normal 3.5-5.1 [facility] Comment on above: Performed By: #### C MP, MG, CBC #### [address] Protein [Mass/Vol] 7.7 g/dL Normal 6.4-8.9 [facility] Comment on above: Performed By: #### C MP, MG, CBC #### [address] Sodium [Moles/Vol] 142 mmol/L Normal 136-145 [facility] Comment on above: Performed By: #### C MP, MG, CBC #### [address] Urea nitrogen [Mass/Vol] 15 mg/dL Normal 7-25 [facility] Comment on above: Performed By: #### C MP, MG, CBC #### [address] MR head/brain wo/w conon MR head/brain wo/w con [facility] Main [place] [address] [place] [id number] MRI Report Signed Patient: Michelle Be MR#: [id number] : 1960 Acct:[id number] Age/Sex: 63 / F ADM Date: 03/03/24 Loc: Room: [address] [place] [address] Type: ADM IN Attending Dr: Delta Gan [...] Willi Guadalupe M.D.03/04/2024 2:32 PM Dictation Location: [place] [address] Transcribed By: [facility] 03/04/24 1432 Dictated By: Willi Guadalupe II, MD 03/04/24 1424 Signed By: 03/04/24 1432 Normal [facility] Magnesiumon 03-04-2024 Magnesium [Mass/Vol] 2.0 mg/dL Normal 1.9-2.7 [facility] Comment on above: Result Comment: PERF ORMED BY: [place] [address] PATHOLOGIST CANDY MAKER ADIEL AGUSTIN M.D. Performed By: #### C MP, MG, CBC #### [address] Complete Blood Count Auto Di ffon 03-03-2024 Basophils (Bld) [#/Vol] 0.1 10*3/uL Normal 0.0-0.2 [facility] Comment on above: Order Comment: RIN T O COME TRY,WEN,160 Result Comment: PERF ORMED BY: [place] [address] PATHOLOGIST CANDY MAKER ADIEL AGUSTIN M.D. Performed By: #### C BC, CMP #### [address] Basophils/100 WBC (Bld) 0.6 % Normal . [facility] Comment on above: Order Comment: REY T O JAK TRY,WEN,1607 Performed By: #### C BC, CMP #### [place] [id number] [place] Eosinophils (Bld) [#/Vol] 0.1 10*3/uL Normal 0.0-0.45 [facility] Comment on above: Order Comment: RIN T O COME TRY,KAH,160 Performed By: #### C BC, CMP #### [place] [address] [place] Eosinophils/100 WBC (Bld) 1.0 % Normal . [facility] Comment on above: Order Comment: RIN T O COME TRY,KAH,160 Performed By: #### C BC, CMP #### [place] [address] Erythrocyte distribution width (RBC) [Ratio] 14.6 % Normal 11.9-15.3 [facility] Comment on above: Order Comment: RIN T O COME TRY,KAH,1607 Performed By: #### C BC, CMP #### [address] Hematocrit (Bld) [Volume fraction] 42.9 % Normal 34.0-46.4 [facility] Comment on above: Order Comment: RIN T O COME TRY,KAH,1607 Performed By: #### C BC, CMP #### [address] Hemoglobin (Bld) [Mass/Vol] 14.5 g/dL Normal 11.8-15.4 [facility] Comment on above: Order Comment: RIN T O COME TRY,KAH,160 Performed By: #### C BC, CMP #### [address] Lymphocytes (Bld) [#/Vol] 1.7 10*3/uL Normal 1.00-4.8 [facility] Comment on above: Order Comment: RIN T O COME TRY,KAH,1607 Performed By: #### C BC, CMP #### [address] Lymphocytes/100 WBC (Bld) 15.7 % Normal . [facility] Comment on above: Order Comment: RIN T O COME TRY,KAH,1607 Performed By: #### C BC, CMP #### [address] MCH (RBC) [Entitic mass] 29.1 pg Normal 24.7-34.3 [facility] Comment on above: Order Comment: RIN T O COME TRY,KAH,160 Performed By: #### C BC, CMP #### [address] MCV (RBC) [Entitic vol] 85.9 fL Normal 80-100 [facility] Comment on above: Order Comment: RIN T O COME TRY,KAH,1607 Performed By: #### C BC, CMP #### [facility] [address] Mean Corpuscular HGB Conc 33.8 g/dL Normal 32.0-35.0 [facility] Comment on above: Order Comment: RIN T O COME TRY,KAH,1607 Performed By: #### C BC, CMP #### [facility] [address] [place] [address] [place] Monocytes (Bld) [#/Vol] 0.9 10*3/uL High 0.0-0.8 [facility] Comment on above: Order Comment: RIN T O COME TRY,KAH,1607 Performed By: #### C BC, CMP #### [address] Monocytes/100 WBC (Bld) 8.4 % Normal . [facility] Comment on above: Order Comment: RIN T O COME TRY,KAH,160 Performed By: #### C BC, CMP #### [address] Neutrophils (Bld) [#/Vol] 8.0 10*3/uL High 1.8-7.7 [facility] Comment on above: Order Comment: RIN T O COME TRY,KAH,160 Performed By: #### C BC, CMP #### [place] [address] [place] Neutrophils/100 WBC (Bld) 74.3 % Normal . [facility] Comment on above: Order Comment: RIN T O COME TRY,KAH,160 Performed By: #### C BC, CMP #### [place] [address] [place] NRBC% 0.1 /100{WBC} Normal 0-0.5 [facility] Comment on above: Order Comment: RIN T O COME TRY,KAH,1607 Performed By: #### C BC, CMP #### [address] Platelet mean volume (Bld) [Entitic vol] 8.9 fL Normal 6.3-10.7 [facility] Comment on above: Order Comment: RIN T O COME TRY,KAH,1607 Performed By: #### C BC, CMP #### [address] Platelets (Bld) [#/Vol] 291 10*3/uL Normal 150-450 [facility] Comment on above: Order Comment: RIN T O COME TRY,KAH,1607 Performed By: #### C BC, CMP #### [address] RBC (Bld) [#/Vol] 4.99 10*6/uL Normal 3.60-5.00 [facility] Comment on above: Order Comment: RIN T O COME TRY,KAH,1607 Performed By: #### C BC, CMP #### [address] WBC (Bld) [#/Vol] 10.7 10*3/uL Normal 3.8-11.6 [facility] Comment on above: Order Comment: RIN T O COME TRY,KAH,1607 Performed By: #### C BC, CMP #### [address] Comprehensive Metabolic Pane [place] 03-03-2024 Albumin [Mass/Vol] 4.6 g/dL Normal 3.5-5.7 [facility] Comment on above: Order Comment: RIN T O COME TRY,KAH,1607 Performed By: #### C BC, CMP #### [address] Albumin/Globulin [Mass ratio] 1.4 {ratio} Normal [facility] [facility] Comment on above: Order Comment: RIN T O COME TRY,KAH,1607 Performed By: #### C BC, CMP #### [address] ALP [Catalytic activity/Vol] 80 U/L Normal 34-104 [facility] Comment on above: Order Comment: RIN T O COME TRY,KAH,1607 Performed By: #### C BC, CMP #### [address] [place] [address] [place] ALT [Catalytic activity/Vol] 16 U/L Normal 7-52 [facility] Comment on above: Order Comment: RIN T O COME TRY,KAH,1607 Performed By: #### C BC, CMP #### [address] Anion gap [Moles/Vol] 13.6 mmol/L Normal 6.0-15.0 [facility] Comment on above: Order Comment: RIN T O COME TRY,KAH,1607 Performed By: #### C BC, CMP #### [facility] [address] [place] [address] AST [Catalytic activity/Vol] 35 U/L Normal 13-39 [facility] Comment on above: Order Comment: RIN T O COME TRY,KAH,1607 Performed By: #### C BC, CMP #### [place] [address] [place] Bilirubin [Mass/Vol] 0.3 mg/dL Normal 0.3-1.0 [facility] Comment on above: Order Comment: RIN T O COME TRY,KAH,1607 Performed By: #### C BC, CMP #### [place] [address] [place] Calcium [Mass/Vol] 9.3 mg/dL Normal 8.6-10.3 [facility] Comment on above: Order Comment: RIN T O COME TRY,KAH,1607 Performed By: #### C BC, CMP #### [facility] [address] [place] [address] [place] Chloride [Moles/Vol] 109 mmol/L High 98-107 [facility] Comment on above: Order Comment: RIN T O COME TRY,KAH,1607 Performed By: #### C BC, CMP #### [facility] [address] [place] [address] [place] CO2 [Moles/Vol] 22.4 mmol/L Normal 21.0-31.0 [facility] Comment on above: Order Comment: RIN T O COME TRY,KAH,1607 Performed By: #### C BC, CMP #### [facility] [address] Creatinine [Mass/Vol] 0.93 mg/dL Normal 0.60-1.20 [facility] Comment on above: Order Comment: RIN T O COME TRY,KAH,1606 Performed By: #### C BC, CMP #### [facility] [address] Creatinine Clr Calc Pharmacy 87.94 Normal [facility] Comment on above: Order Comment: RIN T O COME TRY,KAH,1606 Result Comment: PERF ORMED BY: [place] [address] PATHOLOGIST CANDY MAKER ADIEL AGUSTIN M.D. Performed By: #### C BC, CMP #### [address] GFR/1.73 sq M.predicted MDRD (S/P/Bld) [Vol rate/Area] mL/min/{1.73_m2} Normal [facility] Comment on above: Order Comment: RIN T O COME TRY,,1606 Performed By: #### C BC, CMP #### [address] Globulin (S) [Mass/Vol] 3.2 g/dL Normal [facility] Comment on above: Order Comment: RIN T O COME TRY,,1606 Performed By: #### C BC, CMP #### [address] Glucose [Mass/Vol] 105 mg/dL High 70-100 [facility] Comment on above: Order Comment: RIN T O COME TRY,KAH,1606 Result Comment: [place] Glucose Reference Range is dependent on time and content of last meal. Glucose of more than 200 mg/dL in a nonstressed, ambulatory subject supports the diagnosis of Diabetes Mellitus. ADA recommended reference range Performed By: #### C BC, CMP #### [address] Potassium [Moles/Vol] 4.0 mmol/L Normal 3.5-5.1 [facility] Comment on above: Order Comment: REY PORRAS,KAH,160 Performed By: #### C BC, CMP #### [facility] [address] Protein [Mass/Vol] 7.8 g/dL Normal 6.4-8.9 [facility] Comment on above: Order Comment: REY PORRAS,KAH,160 Performed By: #### C BC, CMP #### [address] Sodium [Moles/Vol] 141 mmol/L Normal 136-145 [facility] Comment on above: Order Comment: REY PORRAS,KAH,160 Performed By: #### C BC, CMP #### [address] Urea nitrogen [Mass/Vol] 15 mg/dL Normal 7-25 [facility] Comment on above: Order Comment: REY PORRAS,KAH,160 Performed By: #### C BC, CMP #### [address] IGP,APTIMA HPV,AGE GDLNon AGE GDLN ACOG TESTING Note . [facility] Comment on above: TESTS RESULT FLAG UN ITS REF RANGE LAB Clinician Provided Cytology Information Source.............Cervix;Endocervix No. of containers..01 ThinPrep Vial Age Algo ACOG Tona... FLAG LEGEND: L-Low Normal,H-High Normal,LL-Alert Low,HH-Alert High <-Panic Low,>-Panic High,A-Abnormal,AA-Critical Abnormal Performed at: 01 =[address] [place] [address] Farzana Hennessy MD, HPV APTIMA Negative Negative [facility] Comment on above: This nucleic acid am plification test detects fourteen high- risk HPV types (16,18,31,33,35,39,45,51,52,56,58,59,66,68) without differentiation. Performed at: =[address], [place] [id number] Chief Concierge: Farzana Hennessy MD, Phone: [phone] Performed at: [facility] [id number] [place] [id number] Chief Concierge: Scott Sandoval MD, Phone: [phone] IGP, APTIMA HPV, RFX 16/18,45 Note . [facility] Comment on above: TESTS RESULT FLAG UN ITS REF RANGE LAB DIAGNOSIS: 02 NEGATIVE FOR INTRAEPITHELIAL LESION OR MALIGNANCY. Specimen adequacy: 02 Satisfactory for evaluation. Endocervical and/or squamous metaplastic cells (endocervical component) are present. Performed by: 02 Adelaida Bustamante, Correctional Agency Director ([facility]) . 02 Note: Note 03 The [...] High,A-Abnormal,AA-Critical Abnormal Performed at: 02 [facility] [address] [place] [address] Scott Sandoval MD, 03 WB [facility] [address] [address] Farzana Hennessy MD, BROOM-ALONE CERVIX ENDOCERVIX [facility] Urinalysis macro (dipstick) panel (U)on 01-28-2024 Bilirubin, UA Negative Negative - 4(70) +++ mg/dL [facility] Blood, UA Negative Negative - 50 Kranthi/mcL [facility] Clarity, UA Clear [facility] Color, UA Dark Tania [facility] Glucose, UA Negative Negative - 1999(110) ++++ mg/dL [facility] Interpretation and review of laboratory results Abnormal [facility] Ketones, UA Negative Negative - 160(16) ++++ mg/dL [facility] Leukocytes, UA Trace Negative - 500+++ Radha/mcL [facility] Nitrite, UA Negative Negative - Positive [facility] pH, UA 5.5 5 - 9 [facility] Protein, UA Negative Negative - 2000(20) ++++ mg/dL [facility] Spec Grav, UA 1.025 1 - 1.03 [facility] Urobilinogen, UA 0.2 0.2 - 12 mg/dL [facility] MHPT CULT,URINEon 01-23-2024 Interpretation and review of laboratory results [facility] Description .CLEAN CATCH [facility]INE [facility] Culture ESCHERICHIA COLI >100,000 CFU/ML Abnormal [facility] STREPTOCOCCI, BETA HEMOLYTIC GROUP B 10 to 50,000 CFU/ML [facility]normal [facility] Report Status FINAL 01/23/2024 [facility] MHPT CULT,URINE SUSCEPTIBILITY [facility] MHPT CULT,URINE Organism ESCHERICHIA COLI [facility] Method CROW [facility] Ampicillin 16 INTERMEDIATE Intermediate [facility] MHPT CULT,URINE Cefazolin <=4 SUSCEPTIBLE Susceptible [facility] Cefazolin sensitivit y results can be used to predict the effectiveness of oral Susceptible [facility] cephalosporins (eg. Cephalexin) in uncomplicated Urinary Tract Infections due Susceptible [facility] MHPT CULT,URINE to E. coli, K. pneumoniae, and P. mirabilis Susceptible [facility] Ceftriaxone <=0.25 SUSCEPTIBLE Susceptible [facility] Negative Susceptible [facility] Gentamicin <=1 SUSCEPTIBLE Susceptible [facility] Levofloxacin <=0.12 SUSCEPTIBLE Susceptible [facility] Nitrofurantoin <=16 SUSCEPTIBLE Susceptible [facility] Piperacillin/Tazobac ta m <=4 SUSCEPTIBLE Susceptible [facility] Tobramycin <=1 SUSCEPTIBLE Susceptible [facility] Trimethoprim/Sulfa <=20 SUSCEPTIBLE Susceptible [facility] Original Ordering Provider: RICHA DAVENPORT [facility] ALL BASIC METABOLIC PANELon 01-05-2024 Anion gap [Moles/Vol] 11.1 mmol/L [facility] Calcium [Mass/Vol] 9.2 mg/dL 8.5 - 10. 1 mg/dL [facility] Chloride [Moles/Vol] 105 mmol/L 98 - 10 7 mmol/L [facility] CO2 [Moles/Vol] 28.0 mmol/L 21.0 - 32.0 mmol/L [facility] Creatinine [Mass/Vol] 1.08 mg/dL High 0.55 - 1.02 mg/dL [facility] GFR/1.73 sq M.predicted CKD-EPI (S/P/Bld) [Vol rate/Area] >60 60 - PINF [facility] Glucose [Mass/Vol] 92 mg/dL 74 - 106 mg/dL [facility] Interpretation and review of laboratory results Abnormal [facility] Potassium [Moles/Vol] 4.1 mmol/L 3.5 - 5.1 mmol/L [facility] Sodium [Moles/Vol] 140 mmol/L 136 - 145 mmol/L [facility] TBH EGFR-NON AF EMIRATI 51 Low 60 - PINF [facility] Urea nitrogen [Mass/Vol] 17.0 mg/dL 7.0 - 18.0 mg/dL [facility] Urea nitrogen/Creatinine [Mass ratio] 15.7 mg/mg [facility] Amphetamine Screen Ql (U)Ord ered By: Jace Graham on 03-23-2023 Amphetamines Ql (U) Negative Negative [facility] Barbiturates [Presence] in U rine by Screen methodOrdered By: Jace Graham on 03-23-2023 Barbiturates Screen Ql (U) Negative Negative [facility] Benzodiazepines Screen Ql (U )Ordered By: Jace Graham on 03-23-2023 Benzodiazepines Ql (U) Negative Negative [facility] Benzoylecgonine [Presence] i n Urine by Screen methodOrdered By: Jace Graham on 03-23-2023 Benzoylecgonine Screen Ql (U) Negative Negative [facility] Cannabinoids [Presence] in U rine by Screen methodOrdered By: Jace Graham on 03-23-2023 Cannabinoids Screen Ql (U) Negative Negative [facility] Comment on above: These are unconfirme d results and should not be used for legal purposes. Drug Cut-Off Concentration: AMPH 1000 ng/mL ELKIN 200 ng/mL ATIYA 200 ng/mL COCM 300 ng/mL OP 300 ng/mL PCP 25 ng/mL THC 20 ng/mL Opiates [Presence] in Urine by Screen methodOrdered By: Jace Graham on 03-23-2023 Opiates Screen Ql (U) Negative Negative [facility] Phencyclidine Screen Ql (U)O rdered By: Jace Graham on 03-23-2023 Phencyclidine Ql (U) Negative Negative [facility] Cholesterol [Mass/volume] in Serum or PlasmaOrdered By: Eduardo Monk on 11-18-2022 Cholesterol [Mass/Vol] 159 mg/dL 140-200 [facility] Comment on above: Chol less than 200 m g/dl low riskChol 201-239 mg/dl borderline riskChol 240 mg/dl and greater high risk Cholesterol in LDL Calc [Mas s/Vol]Ordered By: Eduardo Monk on 11-18-2022 Cholesterol in LDL [Mass/Vol] 84 mg/dL 0-100 [facility] Comment on above: LDL ATP III CLASSIFI CATIONLDL less than 100 mg/dL OptimalLDL 100-129 mg/dL Near or above optimalLDL 130-159 mg/dL Borderline highLDL 160-189 mg/dL HighLDL greater than 189 mg/dL Very high Cholesterol in VLDL Calc [Ma ss/Vol]Ordered By: Eduardo Monk on 11-18-2022 Cholesterol in VLDL [Mass/Vol] 28 mg/dL [facility] Serum or plasma high density lipoprotein (HDL) cholesterol measurementOrdered By: Eduardo Monk on 11-18-2022 Cholesterol in HDL [Mass/Vol] 46 mg/dL 23-92 [facility] Comment on above: HDL CHOL ATP-III CLA SSIFICATION Cardiovascular RiskHDL > or equal to 60 mg/dL LOWHDL < 40 mg/dL HIGH Serum or plasma total choles terol/high density lipoprotein (HDL) cholesterol mass ratOrdered By: Eduardo Monk on 11-18-2022 Cholesterol.total/Chol esterol in HDL [Mass ratio] 3.5 {ratio} <5.0 [facility] Thyrotropin [Units/volume] i n Serum or PlasmaOrdered By: Eduardo Monk on 11-18-2022 TSH Qn 2.13 m[IU]/L 0.45-5.33 [facility] Triglyceride [Mass/volume] i n Serum or PlasmaOrdered By: Eduardo Monk on 11-18-2022 Triglyceride [Mass/Vol] 144 mg/dL 0-149 [facility] Comment on above: TRIG ATP III CLASSIF ICATIONTRIG less than 150 mg/dL NormalTRIG 150-199 mg/dL Borderline highTRIG 200-500 mg/dL High TRIG greater than 500 mg/dL Very highStandard traceable to the Center for Disease Conrtrol and Prevention (CDC) test method. Vitamin D+Metabolites [Mass/ volume] in Serum or PlasmaOrdered By: Eduardo Monk on 11-18-2022 Vitamin D+Metabolites [Mass/Vol] 50.4 ng/mL 30-100 [facility] Comment on above: VITAMIN D STATUS 25( [place])VITAMIN D RANGE (ng/mL) Deficient <20 Insufficient 20 to <30Sufficient 30 to 100Reference: Bin MF,Lakshmi CABRERA, Cristian SMART, et al. Evaluation,treatment, and prevention of vitamin D deficiency; an Endocrine Society clinical practice guideline. JCEM. 2010; 96(7):1911-30. CBC AUTO DIFFon 07-25-2022 BASO # 0.1 103/ul Normal 0.0-0.1 [facility] Comment on above: Performed By: #### A 1C #### [facility] [address] [address] [address] Bebeto Alvarado Basophils/100 WBC (Bld) 0.6 % Normal 0.2-2.0 [facility] Comment on above: Performed By: #### A 1C #### [facility] [address] [place] [address] Dr. Bebeto Alvarado EO # 0.2 103/ul Normal 0.0-0.7 [facility] Comment on above: Performed By: #### A 1C #### [facility] [address] [address] [address] Bebeto Alvarado Eosinophils/100 WBC (Bld) 2.3 % Normal 0.9-7.0 [facility] Comment on above: Performed By: #### A 1C #### [facility] [address] [place] [address] Dr. Bebeto Alvarado Erythrocyte distribution width (RBC) [Ratio] 13.8 % Normal 11.0-15.0 [facility] Comment on above: Performed By: #### A 1C #### [facility] [address] [place] [address] Dr. Bebeto Alvarado Hematocrit (Bld) [Volume fraction] 41.2 % Normal 36.0-48.0 [facility] Comment on above: Performed By: #### A 1C #### [facility] [address] [place] [address] Dr. Bebeto Alvarado Hemoglobin (Bld) [Mass/Vol] 13.2 g/dL Normal 12.0-16.0 [facility] Comment on above: Performed By: #### A 1C #### [facility] [address] [place] [address] Dr. Bebeto Alvarado IG # 0.03 10e3/ul Normal 0.00-0.03 [facility] Comment on above: Performed By: #### A 1C #### [facility] [address] [place] [address] Dr. Bebeto Alvarado IG % 0.4 % Normal 0.0-0.5 [facility] Comment on above: Performed By: #### A 1C #### [facility] [address] [place] [address] Dr. Bebeto Alvarado LYMPH # 2.1 103/ul Normal 1.2-3.8 [facility] Comment on above: Performed By: #### A 1C #### [facility] [address] [place] [address] Dr. Bebeto Alvarado Lymphocytes/100 WBC (Bld) 25.9 % Normal 20.5-60.0 [facility] Comment on above: Performed By: #### A 1C #### [facility] [address] [place] [address] Dr. Bebeto Alvarado MANUAL DIFF REQ NO Normal [facility] Comment on above: Performed By: #### A 1C #### [facility] [address] [place] [address] Dr. Bebeto Alvarado MCH (RBC) [Entitic mass] 28.0 pg Normal 26.7-34.0 [facility] Comment on above: Performed By: #### A 1C #### [facility] [address] [place] [address] Dr. Bebeto Alvarado MCHC (RBC) [Mass/Vol] 32.0 g/dL Normal 29.9-35.2 [facility] Comment on above: Performed By: #### A 1C #### [facility] [address] [place] [address] Dr. Bebeto Alvarado MCV (RBC) [Entitic vol] 87.5 fL Normal 81.0-99.0 [facility] Comment on above: Performed By: #### A 1C #### [facility] [address] [place] [address] Dr. Bebeto Alvarado MONO # 0.5 103/ul Normal 0.3-0.8 [facility] Comment on above: Performed By: #### A 1C #### [facility] [address] [place] [address] Dr. Bebeto Alvarado Monocytes/100 WBC (Bld) 6.6 % Normal 1.7-12.0 [facility] Comment on above: Performed By: #### A 1C #### [facility] [address] [place] [address] Dr. Bebeto Alvarado NEUT # 5.1 103/ul Normal 1.4-6.5 [facility] Comment on above: Performed By: #### A 1C #### [facility] [address] [place] [address] Dr. Bebeto Alvarado Neutrophils/100 WBC (Bld) 64.2 % Normal 43.0-75.0 [facility] Comment on above: Performed By: #### A 1C #### [facility] [address] [place] [address] Dr. Bebeto Alvarado Platelet mean volume (Bld) [Entitic vol] 11.2 fL Normal 9.5-13.5 [facility] Comment on above: Performed By: #### A 1C #### [facility] [address] [place] [address] Dr. Bebeto Alvarado PLT 252 103/ul Normal 150-450 [facility] Comment on above: Performed By: #### A 1C #### [facility] [address] [place] [address] Dr. Bebeto Alvarado RBC 4.71 106/ul Normal 4.20-5.40 [facility] Comment on above: Performed By: #### A 1C #### [facility] [address] [place] [address] Dr. Bebeto Alvarado WBC 8.0 103/ul Normal 4.0-11.0 [facility] Comment on above: Performed By: #### A 1C #### [facility] [address] [place] [address] Dr. Bebeto Alvarado GLYCOHEMOGLOBIN A1Con 2022 ADA RECOMMENDATION SEE BELOW Normal [facility] Comment on above: Result Comment: ADA RECOMMENDED LIMIT 4.0 - 6.0 ADA THERAPEUTIC TARGET < 7.0 ACTION SUGGESTED > 7.0 Performed By: #### A 1C #### [facility] [address] [place] [address] Dr. Bebeto Alvarado Glucose [Mass/Vol] 114 mg/dL Normal [facility] Comment on above: Performed By: #### A 1C #### [facility] [address] [place] [address] Dr. Bebeto Alvarado HbA1c (Bld) [Mass fraction] 5.6 % Normal 4.5-6.2 [facility] Comment on above: Performed By: #### A 1C #### [facility] [address] [place] [address] Dr. Bebeto Alvarado IRONon 07-25-2022 Iron [Mass/Vol] 60.0 ug/dL Normal 50.0-170.0 [facility] Comment on above: Performed By: #### V ITB12, IRON #### [facility] [address] [place] [address] Dr. Bebeto Alvarado LIPID PROFILEon 07-25-2022 CHOL-HDL RATIO NORM SEE BELOW Normal [facility] Comment on above: Result Comment: 3.3 - 4.4 LOW RISK 4.4 - 7.1 AVERAGE RISK 7.1 - 11.0 MODERATE RISK >11.0 HIGH RISK Performed By: #### C MP, LIPID #### [facility] [address] [place] [address] Dr. Bebeto Alvarado Cholesterol [Mass/Vol] 144 mg/dL Normal <=200 Th [facility] Comment on above: Performed By: #### C MP, LIPID #### [facility] [address] [address] [address] Bebeto Alvarado Cholesterol in HDL [Mass/Vol] 39 mg/dL Critically low 40-60 [facility] Comment on above: Performed By: #### C MP, LIPID #### [facility] [address] [address] [address] Bebeto Alvarado Cholesterol in LDL [Mass/Vol] 74.6 mg/dL Normal [facility] Comment on above: Performed By: #### C MP, LIPID #### [facility] [address] [address] [address] Bebeto Alvarado Cholesterol.total/Chol esterol in HDL [Mass ratio] 3.7 {ratio} Normal [facility] Comment on above: Performed By: #### C MP, LIPID #### [facility] [address] [address] [address] Bebeto Alvarado HDL NORMAL > or = 60 mg/dl - LO W CARDIOVASCULAR RISK <40 mg/dl - HIGH CARDIOVASCULAR RISK Normal [facility] Comment on above: Performed By: #### C MP, LIPID #### [facility] [address] [address] [address] Bebeto Alvarado LDL CALC NORMAL SEE BELOW Normal [facility] Comment on above: Result Comment: <100 mg/dl OPTIMAL 100 - 129 mg/dl NEAR OR ABOVE OPTIMAL 130 - 159 mg/dl BORDERLINE HIGH 160 - 189 mg/dl HIGH >190 mg/dl VERY HIGH Performed By: #### C MP, LIPID #### [facility] [address] [address] [address] Bebeto Alvarado Triglyceride [Mass/Vol] 152 mg/dL Critically high <=150 [facility] Comment on above: Performed By: #### C MP, LIPID #### [facility] [address] [address] [address] Bebeto Alvarado VLDL CALC 30.4 mg/dL Normal [facility] Comment on above: Performed By: #### C MP, LIPID #### [facility] [address] [address] [address] Bebeto Alvarado PROF 14(COMP METB)on 023 Albumin [Mass/Vol] 3.7 g/dL Normal 3.4-5.0 [facility] Comment on above: Performed By: #### C MP, LIPID #### [facility] [address] [address] [address] Bebeto Alvarado Albumin/Globulin [Mass ratio] 0.9 {ratio} Normal [facility] Comment on above: Performed By: #### C MP, LIPID #### [facility] [address] [place] [address] Dr. Bebeto Alvarado ALP [Catalytic activity/Vol] 90 U/L Normal 46-116 [facility] Comment on above: Performed By: #### C MP, LIPID #### [facility] [address] [place] [address] Dr. Bebeto Alvarado ALT [Catalytic activity/Vol] 38 U/L Normal 14-59 [facility] Comment on above: Performed By: #### C MP, LIPID #### [facility] [address] [place] [address] Dr. Bebeto Alvarado Anion gap [Moles/Vol] 12.1 mmol/L Normal [facility] Comment on above: Performed By: #### C MP, LIPID #### [facility] [address] [address] [address] Bebeto Alvarado AST [Catalytic activity/Vol] 26 U/L Normal 15-37 [facility] Comment on above: Performed By: #### C MP, LIPID #### [facility] [address] [address] [address] Bebeto Alvarado Bilirubin [Mass/Vol] 0.3 mg/dL Normal 0.2-1.0 [facility] Comment on above: Performed By: #### C MP, LIPID #### [facility] [address] [address] [address] Bebeto Alvarado Calcium [Mass/Vol] 9.3 mg/dL Normal 8.5-10.1 [facility] Comment on above: Performed By: #### C MP, LIPID #### [facility] [address] [address] [address] Bebeto Alvarado Chloride [Moles/Vol] 107 mmol/L Normal 98-107 [facility] Comment on above: Performed By: #### C MP, LIPID #### [facility] [address] [address] [address] Bebeto Alvarado CO2 [Moles/Vol] 27.9 mmol/L Normal 21.0-32.0 [facility] Comment on above: Performed By: #### C MP, LIPID #### [facility] [address] [address] [address] Bebeto Alvarado Creatinine [Mass/Vol] 0.95 mg/dL Normal 0.55-1.02 [facility] Comment on above: Performed By: #### C MP, LIPID #### [facility] [address] [address] [address] Bebeto Alvarado EGFR-AF EMIRATI >60 Normal >=60 [facility] Comment on above: Performed By: #### C MP, LIPID #### [facility] [address] [address] [address] Bebeto Alvarado EGFR-NON AF EMIRATI 60 mL/min/1.73m2 Normal >=60 [facility] Comment on above: Performed By: #### C MP, LIPID #### [facility] [address] [address] [address] Bebeto Alvarado Globulin (S) [Mass/Vol] 3.9 g/dL Normal [facility] Comment on above: Performed By: #### C MP, LIPID #### [facility] [address] [address] [address] Bebeto Alvarado Glucose [Mass/Vol] 108 mg/dL Critically high 74-106 T [facility] Comment on above: Performed By: #### C MP, LIPID #### [facility] [facility] [address] [address] [address] Bebeto Alvarado Potassium [Moles/Vol] 4.0 mmol/L Normal 3.5-5.1 [facility] Comment on above: Performed By: #### C MP, LIPID #### [facility] [address] [place] [address] Dr. Bebeto Alvarado Protein [Mass/Vol] 7.6 g/dL Normal 6.4-8.2 [facility] Comment on above: Performed By: #### C MP, LIPID #### [facility] [address] [place] [address] Dr. Bebeto Alvarado Sodium [Moles/Vol] 143 mmol/L Normal 136-145 [facility] Comment on above: Performed By: #### C MP, LIPID #### [facility] [address] [place] [address] Dr. Bebeto Alvarado Urea nitrogen [Mass/Vol] 15.0 mg/dL Normal 7.0-18.0 [facility] Comment on above: Performed By: #### C MP, LIPID #### [facility] [address] [place] [address] Dr. Bebeto Alvarado Urea nitrogen/Creatinine [Mass ratio] 15.8 mg/mg Normal [facility] Comment on above: Performed By: #### C MP, LIPID #### [facility] [address] [place] [address] Dr. Bebeto Alvarado UA RANDOM W/MICROSCOPICon BACTERIA NONE SEEN Normal NONE SEEN [facility] Comment on above: Performed By: #### A 1C #### [facility] [address] [place] [address] Dr. Bebeto Alvarado Bilirubin Ql (U) Negative Normal NEGATIVE [facility] Comment on above: Performed By: #### A 1C #### [facility] [address] [place] [address] Dr. Bebeto Alvarado CAST NONE SEEN Normal NONE SEEN [facility] Comment on above: Performed By: #### A 1C #### [facility] [address] [place] [address] Dr. Bebeto Alvarado Clarity (U) CLEAR Normal CLEAR [facility] Comment on above: Performed By: #### A 1C #### [facility] [address] [place] [address] Dr. Bebeto Alvarado Color (U) YELLOW Normal YELLOW [facility] Comment on above: Performed By: #### A 1C #### [facility] [address] [place] [address] Dr. Bebeto Alvarado Crystals LM Nom (Urine sed) NONE SEEN Normal NONE SEEN [facility] Comment on above: Performed By: #### A 1C #### [facility] [address] [place] [address] Dr. Bebeto Alvarado Epithelial cells LM Ql (Urine sed) NONE SEEN Normal NONE SEEN /RARE [facility] Comment on above: Performed By: #### A 1C #### [facility] [address] [place] [address] Dr. Bebeto Alvarado Glucose Ql (U) Negative Normal NEGATIVE [facility] Comment on above: Performed By: #### A 1C #### [facility] [address] [place] [address] Dr. Bebeto Alvarado Hemoglobin Ql (U) Negative Normal NEGATIVE [facility] Comment on above: Performed By: #### A 1C #### [facility] [address] [place] [address] Dr. Bebeto Alvarado Ketones Ql (U) Negative Normal NEGATIVE [facility] Comment on above: Performed By: #### A 1C #### [facility] [address] [place] [address] Dr. Bebeto Alvarado LEUKOCYTES Negative Normal NEGATIVE [facility] Comment on above: Performed By: #### A 1C #### [facility] [address] [place] [address] Dr. Bebeto Alvarado MUCOUS NONE SEEN Normal NONE SEEN [facility] Comment on above: Performed By: #### A 1C #### [facility] [address] [place] [address] Dr. Bebeto Alvarado Nitrite Ql (U) Negative Normal NEGATIVE [facility] Comment on above: Performed By: #### A 1C #### [facility] [address] [place] [address] Dr. Bebeto Alvarado pH (U) 5.5 [pH] Normal 5-9 [facility] Comment on above: Performed By: #### A 1C #### [facility] [address] [place] [address] Dr. Bebeto Alvarado RBC NONE SEEN Abnormal 0-2 [facility] Comment on above: Performed By: #### A 1C #### [facility] [address] [place] [address] Dr. Bebeto Alvarado SPEC GRAVITY 1.030 Abnormal 1.005-<=1.02 5 [facility] Comment on above: Performed By: #### A 1C #### [facility] [address] [place] [address] Dr. Bebeto Alvarado UA PROTEIN Negative Normal NEGATIVE/ TRACE [facility] Comment on above: Performed By: #### A 1C #### [facility] [address] [place] [address] Dr. Bebeto Alvarado Urobilinogen Qn (U) 0.2 {Katerin'U}/dL Normal 0.2 - 1. 0 [facility] Comment on above: Performed By: #### A 1C #### [facility] [address] [place] [address] Dr. Bebeto Alvarado WBC NONE SEEN Normal NONE SEEN [facility] Comment on above: Performed By: #### A 1C #### [facility] [address] [place] [address] Dr. Bebeto Alvarado VITAMIN B12on 07-25-2022 Cobalamin (Vitamin B12) [Mass/Vol] 1684.0 pg/mL Critically high 193.0-986.0 [facility] Comment on above: Performed By: #### V ITB12, IRON #### [facility] [address] [place] [address] Dr. Bebeto Alvarado PROF CHEM 8 (BAS METB)on Anion gap [Moles/Vol] 12.2 mmol/L Normal Th [facility] Comment on above: Performed By: #### B MP #### [facility] [address] [place] [address] Dr. Bebeto Alvarado Calcium [Mass/Vol] 8.9 mg/dL Normal 8.5-10.1 [facility] Comment on above: Performed By: #### B MP #### [facility] [address] [address] [address] Bebeto Alvarado Chloride [Moles/Vol] 105 mmol/L Normal 98-107 [facility] Comment on above: Performed By: #### B MP #### [facility] [address] [address] [address] Bebeto Alvarado CO2 [Moles/Vol] 29.6 mmol/L Normal 21.0-32.0 [facility] Comment on above: Performed By: #### B MP #### [facility] [address] [address] [address] Bebeto Alvarado Creatinine [Mass/Vol] 0.95 mg/dL Normal 0.55-1.02 [facility] Comment on above: Performed By: #### B MP #### [facility] [address] [address] [address] Bebeto Alvarado EGFR-AF EMIRATI >60 Normal >=60 [facility] Comment on above: Performed By: #### B MP #### [facility] [address] [address] [address] Bebeto Alvarado EGFR-NON AF EMIRATI 60 mL/min/1.73m2 Normal >=60 [facility] Comment on above: Performed By: #### B MP #### [facility] [address] [address] [address] Bebeto Alvarado Glucose [Mass/Vol] 101 mg/dL Normal 74-106 [facility] Comment on above: Performed By: #### B MP #### [facility] [address] [address] [address] Bebeto Alvarado Potassium [Moles/Vol] 3.8 mmol/L Normal 3.5-5.1 [facility] Comment on above: Performed By: #### B MP #### [facility] [address] [address] [address] Bebeto Alvarado Sodium [Moles/Vol] 143 mmol/L Normal 136-145 [facility] Comment on above: Performed By: #### B MP #### [facility] [address] [address] [address] Bebeto Alvarado Urea nitrogen [Mass/Vol] 16.0 mg/dL Normal 7.0-18.0 [facility] Comment on above: Performed By: #### B MP #### [facility] [address] [place] [address] Dr. Bebeto Alvarado Urea nitrogen/Creatinine [Mass ratio] 16.8 mg/mg Normal [facility] Comment on above: Performed By: #### B MP #### [facility] [address] [place] [address] Dr. Bebeto Alvarado CBC AUTO DIFFon 11-21-2021 BASO # 0.1 103/ul Normal 0.0-0.1 [facility] Comment on above: Performed By: #### A 1C #### [facility] [address] [place] [address] Dr. Bebeto Alvarado Basophils/100 WBC (Bld) 1.0 % Normal 0.2-2.0 [facility] Comment on above: Performed By: #### A 1C #### [facility] [address] [place] [address] Dr. Bebeto Alvarado EO # 0.2 103/ul Normal 0.0-0.7 [facility] Comment on above: Performed By: #### A 1C #### [facility] [address] [place] [address] Dr. Bebeto Alvarado Eosinophils/100 WBC (Bld) 3.3 % Normal 0.9-7.0 [facility] Comment on above: Performed By: #### A 1C #### [facility] [address] [place] [address] Dr. Bebeto Alvarado Erythrocyte distribution width (RBC) [Ratio] 13.8 % Normal 11.0-15.0 [facility] Comment on above: Performed By: #### A 1C #### [facility] [address] [place] [address] Dr. Bebeto Alvarado Hematocrit (Bld) [Volume fraction] 38.8 % Normal 36.0-48.0 [facility] Comment on above: Performed By: #### A 1C #### [facility] [address] [place] [address] Dr. Bebeto Alvarado Hemoglobin (Bld) [Mass/Vol] 12.5 g/dL Normal 12.0-16.0 [facility] Comment on above: Performed By: #### A 1C #### [facility] [address] [place] [address] Dr. Bebeto Alvarado IG # 0.02 10e3/ul Normal 0.00-0.03 [facility] Comment on above: Performed By: #### A 1C #### [facility] [address] [place] [address] Dr. Bebeto Alvarado IG % 0.3 % Normal 0.0-0.5 [facility] Comment on above: Performed By: #### A 1C #### [facility] [address] [place] [address] Dr. Bebeto Alvarado LYMPH # 1.9 103/ul Normal 1.2-3.8 [facility] Comment on above: Performed By: #### A 1C #### [facility] [address] [place] [address] Dr. Bebeto Alvarado Lymphocytes/100 WBC (Bld) 29.6 % Normal 20.5-60.0 [facility] Comment on above: Performed By: #### A 1C #### [facility] [address] [place] [address] Dr. Bebeto Alvarado MANUAL DIFF REQ NO Normal [facility] Comment on above: Performed By: #### A 1C #### [facility] [address] [place] [address] Dr. Bebeto Alvarado MCH (RBC) [Entitic mass] 28.0 pg Normal 26.7-34.0 [facility] Comment on above: Performed By: #### A 1C #### [facility] [address] [place] [address] Dr. Bebeto Alvarado MCHC (RBC) [Mass/Vol] 32.2 g/dL Normal 29.9-35.2 [facility] Comment on above: Performed By: #### A 1C #### [facility] [address] [place] [address] Dr. Bebeto Alvarado MCV (RBC) [Entitic vol] 86.8 fL Normal 81.0-99.0 [facility] Comment on above: Performed By: #### A 1C #### [facility] [address] [place] [address] Dr. Bebeto Alvarado MONO # 0.4 103/ul Normal 0.3-0.8 [facility] Comment on above: Performed By: #### A 1C #### [facility] [address] [place] [address] Dr. Bebeto Alvarado Monocytes/100 WBC (Bld) 5.7 % Normal 1.7-12.0 [facility] Comment on above: Performed By: #### A 1C #### [facility] [address] [place] [address] Dr. Bebeto Alvarado NEUT # 3.8 103/ul Normal 1.4-6.5 [facility] Comment on above: Performed By: #### A 1C #### [facility] [address] [place] [address] Dr. Bebeto Alvarado Neutrophils/100 WBC (Bld) 60.1 % Normal 43.0-75.0 [facility] Comment on above: Performed By: #### A 1C #### [facility] [address] [place] [address] Dr. Bebeto Alvarado Platelet mean volume (Bld) [Entitic vol] 11.0 fL Normal 9.5-13.5 [facility] Comment on above: Performed By: #### A 1C #### [facility] [address] [place] [address] Dr. Bebeto Alvarado PLT 264 103/ul Normal 150-450 [facility] Comment on above: Performed By: #### A 1C #### [facility] [address] [place] [address] Dr. Bebeto Alvarado RBC 4.47 106/ul Normal 4.20-5.40 [facility] Comment on above: Performed By: #### A 1C #### [facility] [address] [place] [address] Dr. Bebeto Alvarado WBC 6.3 103/ul Normal 4.0-11.0 [facility] Comment on above: Performed By: #### A 1C #### [facility] [address] [address] [address] Bebeto Alvarado GLYCOHEMOGLOBIN A1Con 2021 ADA RECOMMENDATION SEE BELOW Normal [facility] Comment on above: Result Comment: ADA RECOMMENDED LIMIT 4.0 - 6.0 ADA THERAPEUTIC TARGET < 7.0 ACTION SUGGESTED > 7.0 Performed By: #### A 1C #### [facility] [address] [address] [address] Bebeto Alvarado Glucose [Mass/Vol] 105 mg/dL Normal [facility] Comment on above: Performed By: #### A 1C #### [facility] [address] [address] [address] Bebeto Alvarado HbA1c (Bld) [Mass fraction] 5.3 % Normal 4.5-6.2 [facility] Comment on above: Performed By: #### A 1C #### [facility] [address] [address] [address] Bebeto Alvarado IRONon 11-21-2021 Iron [Mass/Vol] 59.0 ug/dL Normal 50.0-170.0 [facility] Comment on above: Performed By: #### A 1C #### [facility] [address] [place] [address] Dr. Bebeto Alvarado LIPID PROFILEon 11-21-2021 CHOL-HDL RATIO NORM SEE BELOW Normal [facility] Comment on above: Result Comment: 3.3 - 4.4 LOW RISK 4.4 - 7.1 AVERAGE RISK 7.1 - 11.0 MODERATE RISK >11.0 HIGH RISK Performed By: #### C MP, LIPID #### [facility] [address] [address] [address] Bebeto Alvarado Cholesterol [Mass/Vol] 139 mg/dL Normal <=200 Th [facility] Comment on above: Performed By: #### C MP, LIPID #### [facility] [address] [address] [address] Bebeto Alvarado Cholesterol in HDL [Mass/Vol] 35 mg/dL Critically low 40-60 [facility] Comment on above: Performed By: #### C MP, LIPID #### [facility] [address] [address] [address] Bebeto Alvarado Cholesterol in LDL [Mass/Vol] 69.6 mg/dL Normal [facility] Comment on above: Performed By: #### C MP, LIPID #### [facility] [address] [address] [address] Bebeto Alvarado Cholesterol.total/Chol esterol in HDL [Mass ratio] 4.0 {ratio} Normal [facility] Comment on above: Performed By: #### C MP, LIPID #### [facility] [address] [address] [address] Bebeto Alvarado HDL NORMAL > or = 60 mg/dl - LO W CARDIOVASCULAR RISK <40 mg/dl - HIGH CARDIOVASCULAR RISK Normal [facility] Comment on above: Performed By: #### C MP, LIPID #### [facility] [address] [place] [address] Dr. Bebeto Alvarado LDL CALC NORMAL SEE BELOW Normal [facility] Comment on above: Result Comment: <100 mg/dl OPTIMAL 100 - 129 mg/dl NEAR OR ABOVE OPTIMAL 130 - 159 mg/dl BORDERLINE HIGH 160 - 189 mg/dl HIGH >190 mg/dl VERY HIGH Performed By: #### C MP, LIPID #### [facility] [address] [place] [address] Dr. Bebeto Alvarado Triglyceride [Mass/Vol] 172 mg/dL Critically high <=150 [facility] Comment on above: Performed By: #### C MP, LIPID #### [facility] [address] [place] [address] Dr. Bebeto Alvarado VLDL CALC 34.4 mg/dL Normal [facility] Comment on above: Performed By: #### C MP, LIPID #### [facility] [address] [place] [address] Dr. Bebeto Alvarado PROF 14(COMP METB)on 022 Albumin [Mass/Vol] 3.8 g/dL Normal 3.4-5.0 [facility] Comment on above: Performed By: #### C MP, LIPID #### [facility] [address] [place] [address] Dr. Bebeto Alvarado Albumin/Globulin [Mass ratio] 1.1 {ratio} Normal [facility] Comment on above: Performed By: #### C MP, LIPID #### [facility] [address] [place] [address] Dr. Bebeto Alvarado ALP [Catalytic activity/Vol] 96 U/L Normal 46-116 [facility] Comment on above: Performed By: #### C MP, LIPID #### [facility] [address] [place] [address] Dr. Bebeto Alvarado ALT [Catalytic activity/Vol] 25 U/L Normal 14-59 [facility] Comment on above: Performed By: #### C MP, LIPID #### [facility] [address] [place] [address] Dr. Bebeto Alvarado Anion gap [Moles/Vol] 11.8 mmol/L Normal [facility] Comment on above: Performed By: #### C MP, LIPID #### [facility] [address] [place] [address] Dr. Bebeto Alvarado AST [Catalytic activity/Vol] 20 U/L Normal 15-37 [facility] Comment on above: Performed By: #### C MP, LIPID #### [facility] [address] [place] [address] Dr. Bebeto Alvarado Bilirubin [Mass/Vol] 0.4 mg/dL Normal 0.2-1.0 [facility] Comment on above: Performed By: #### C MP, LIPID #### [facility] [address] [place] [address] Dr. Bebeto Alvarado Calcium [Mass/Vol] 8.8 mg/dL Normal 8.5-10.1 [facility] Comment on above: Performed By: #### C MP, LIPID #### [facility] [address] [place] [address] Dr. Bebeto Alvarado Chloride [Moles/Vol] 106 mmol/L Normal 98-107 [facility] Comment on above: Performed By: #### C MP, LIPID #### [facility] [address] [place] [address] Dr. Bebeto Alvarado CO2 [Moles/Vol] 27.0 mmol/L Normal 21.0-32.0 [facility] Comment on above: Performed By: #### C MP, LIPID #### [facility] [address] [address] [address] Bebeto Alvarado Creatinine [Mass/Vol] 0.97 mg/dL Normal 0.55-1.02 [facility] Comment on above: Performed By: #### C MP, LIPID #### [facility] [address] [address] [address] Bebeto Alvarado EGFR-AF EMIRATI >60 Normal >=60 [facility] Comment on above: Performed By: #### C MP, LIPID #### [facility] [address] [address] [address] Bebeto Alvarado EGFR-NON AF EMIRATI 59 mL/min/1.73m2 Critically low >=60 [facility] Comment on above: Performed By: #### C MP, LIPID #### [facility] [address] [address] [address] Bebeto Alvarado Globulin (S) [Mass/Vol] 3.4 g/dL Normal [facility] Comment on above: Performed By: #### C MP, LIPID #### [facility] [address] [address] [address] Bebeto Alvarado Glucose [Mass/Vol] 103 mg/dL Normal 74-106 [facility] Comment on above: Performed By: #### C MP, LIPID #### [facility] [address] [address] [address] Bebeto Alvarado Potassium [Moles/Vol] 3.8 mmol/L Normal 3.5-5.1 [facility] Comment on above: Performed By: #### C MP, LIPID #### [facility] [address] [address] [address] Bebeto Alvarado Protein [Mass/Vol] 7.2 g/dL Normal 6.4-8.2 [facility] Comment on above: Performed By: #### C MP, LIPID #### [facility] [address] [address] [address] Bebeto Alvarado Sodium [Moles/Vol] 141 mmol/L Normal 136-145 [facility] Comment on above: Performed By: #### C MP, LIPID #### [facility] [address] [place] [address] Dr. Bebeto Alvarado Urea nitrogen [Mass/Vol] 11.0 mg/dL Normal 7.0-18.0 [facility] Comment on above: Performed By: #### C MP, LIPID #### [facility] [address] [place] [address] Dr. Bebeto Alvarado Urea nitrogen/Creatinine [Mass ratio] 11.3 mg/mg Normal [facility] Comment on above: Performed By: #### C MUKUND, LIPID #### [facility] [address] [place] [address] Dr. Bebeto Alvarado URIC ACID SERUMon 11-21-2021 Urate [Mass/Vol] 7.3 mg/dL Critically high 2.6-6.0 [facility] Comment on above: Performed By: #### A 1C #### [facility] [address] [place] [address] Dr. Bebeto Alvarado VITAMIN B12on 11-21-2021 Cobalamin (Vitamin B12) [Mass/Vol] 2123.0 pg/mL Critically high 193.0-986.0 [facility] Comment on above: Performed By: #### A 1C #### [facility] [address] [place] [address] Dr. Bebeto Alvarado Physician Referralon 022 Physician Referral [id number] Normal [facility] KNEE RIGHT 1 OR 2 VWSon KNEE RIGHT 1 OR 2 VWS [facility] Department of Radiology [address] [place] [id number] ======== Patient Name: MICHELLE BE : 1960 Sex: F Age: Race: White Pt. Location: 84 Patient Status: O Ordered Date: 02/08/2019 10:40:00 AM Completed Date: 02/08/2019 10:38 AM Requesting Provider: AHSAN BINGHAM Attending Provider: AHSAN BINGHAM Report Copy To: Signs & Symptoms: S82.001A Unsp fracture of right patella, init for clos fx I10 History: [place] Comments: , , , Ordering Provider - [...] Electronically signed by:Debra Del Cid. Transcribed by: [email or web address], User Resident: Electronically Signed by: DEBRA DEL CID @ 02/08/2019 11:16 AM [place] [facility] Comment on above: Order Comment: , Rossie ws (X-RAY, KNEE): Radiologic Protocol , Weight Bearing?: N , With or Without Brace/Cast/Collar: With , Views (X-RAY, KNEE): Radiologic Protocol , Weight Bearing?: N , With or Without Brace/Cast/Collar: With , , , Ordering Provider - AHSAN BINGHAM PA-C , KNEE RIGHT 1 OR 2 VWSon KNEE RIGHT 1 OR 2 VWS [facility] Department of Radiology [address] [place] [phone] ======== Patient Name: MICHELLE BE : [...] complications. Electronically signed by:Tomasz Stoll. Transcribed by: [email or web address], User Resident: Electronically Signed by: TOMASZ STOLL @ 12/07/2018 11:14 AM Normal [facility] Comment on above: Order Comment: , Vie ws (X-RAY, KNEE): Radiologic Protocol , Weight Bearing?: N , With or Without Brace/Cast/Collar: With , Views (X-RAY, KNEE): Radiologic Protocol , Weight Bearing?: N , With or Without Brace/Cast/Collar: With , , , Ordering Provider - AHSAN BINGHAM PA-C , KNEE RIGHT 1 OR 2 [facility] -0 KNEE RIGHT 1 OR 2 S [facility] Department of Radiology [address] [place] [phone] ======== Patient Name: MICHELLE BE : 1960 Sex: F Age: Race: White Pt. 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 Transcribed by: [email or web address], User Resident: Electronically Signed by: ANUP ELLISON @ 10/06/2018 02:48 PM Normal [facility] Comment on above: Order Comment: , Rossie ws (X-RAY, KNEE): Radiologic Protocol , Weight Bearing?: N , With or Without Brace/Cast/Collar: With , Views (X-RAY, KNEE): Radiologic Protocol , Weight Bearing?: N , With or Without Brace/Cast/Collar: With , , , Ordering Provider - AHSAN BINGHAM PA-C , KNEE RIGHT 1 OR 2 VWSon 08-05 KNEE RIGHT 1 OR 2 VWS [facility] Department of Radiology [address] [place] [phone] ======== Patient Name: MICHELLE BE : 1960 Sex: F Age: Race: White Pt. Location: Patient Status: Ordered Date: 08/26/2018 2:30:00 PM Completed Date: 08/26/2018 02:54 PM Requesting Provider: AHSAN BINGHAM Attending Provider: Report Copy To: Signs & Symptoms: S82.001A Unsp fracture of right patella, init for clos fx I10 History: [place] Comments: , , , Ordering Provider - [...] effusion Electronically signed by:Anup Ellison. Transcribed by: [email or web address], User Resident: Electronically Signed by: ANUP ELLISON @ 08/26/2018 04:56 PM Normal [facility] Comment on above: Order Comment: , Vie ws (X-RAY, KNEE): Radiologic Protocol , Weight Bearing?: N , With or Without Brace/Cast/Collar: With , Views (X-RAY, KNEE): Radiologic Protocol , Weight Bearing?: N , With or Without Brace/Cast/Collar: With , , , Ordering Provider - AHSAN BINGHAM PA-C , KNEE RIGHT 1 OR 2 [facility] 07-06 KNEE RIGHT 1 OR [address] [facility] Department of Radiology [address] [place] [id number] ======== Patient Name: MICHELLE BE : 1960 Sex: F Age: Race: White Pt. Location: Patient Status: Ordered Date: 07/29/2018 2:10:00 PM Completed Date: 07/29/2018 02:12 PM Requesting Provider: AHSAN BINGHAM Attending Provider: Report Copy To: Signs & Symptoms: S82.001A Unsp fracture of right patella, init for clos fx I10 History: [place] Comments: , , , Ordering Provider - [...] compartment Electronically signed by:Anup Ellison. Transcribed by: [email or web address], User Resident: Electronically Signed by: ANUP ELLISON @ 07/29/2018 03:41 PM Normal [facility] Comment on above: Order Comment: , Mabel ws (X-RAY, KNEE): Radiologic Protocol , Weight Bearing?: N , With or Without Brace/Cast/Collar: With , Views (X-RAY, KNEE): Radiologic Protocol , Weight Bearing?: N , With or Without Brace/Cast/Collar: With , , , Ordering Provider - AHSAN BINGHAM PA-C , KNEE RIGHT 3 VWSon 9 KNEE RIGHT 3 [facility] Department of Radiology [address] [place] [phone] ======== Patient Name: MICHELLE BE : [...] BINGHAM PA-C , Exam: KNEE RIGHT 3 [facility] ======== KNEE RIGHT 3 S 07/15/2018 [...] knee Electronically signed by:Anup Ellison. Transcribed by: [email or web address], User Resident: Electronically Signed by: ANUP Tabby ELLISON @ 07/15/2018 03:31 PM Normal [facility] Comment on above: Order Comment: , Vie ws (X-RAY, KNEE): Radiologic Protocol , Weight Bearing?: N , With or Without Brace/Cast/Collar: With , Views (X-RAY, KNEE): Radiologic Protocol , Weight Bearing?: N , With or Without Brace/Cast/Collar: With , , , Ordering Provider - AHSAN BINGHAM PA-C , Operative Reporton 9 Operative Report MR#: [id number] [facility] Pt. Name: Michelle Be Room #: [...] Duarte MD Date Trans: 07/03/2018 04:28 Monse/terry [id number] Normal [facility] *ANAEROBIC CULTUREon 019 *ANAEROBIC CULTURE Clinical Report: (D) Specimen/Source: SWAB/RT KNEE Collected: 07/02/2018 13:53 Status: Final Last Updated: 07/07/2018 08:02 CULT RES (Final) No Anaerobes Isolated 5 Days Normal [facility] Comment on above: Performed By: #### 3 0312 #### [address] *WOUND CULTUREon 07-02-2018 *WOUND CULTURE Clinical Report: (D) Specimen/Source: WOUND/INTRAOP SPEC Collected: 07/02/2018 13:53 Status: Final Last Updated: 07/07/2018 10:13 (1) #1 RT KNEE GRAM (Final) Rare Polys No Bacteria Seen CULT RES (Final) No Growth Day 5 Normal [facility] Comment on above: Order Comment: #1 RT KNEE Performed By: #### 3 0343 #### [address] KNEE RIGHT 1 OR 2 Son 06-05 KNEE RIGHT 1 OR 2 S [facility] Department of Radiology [address] [place] [phone] ======== Patient Name: MICHELLE BE : [...] Electronically signed by:Debra Del Cid. Transcribed by: [email or web address], User Resident: Electronically Signed by: DEBRA DEL CID @ 07/02/2018 02:03 PM Normal [facility] Comment on above: Order Comment: ORIF VS PERCUTANEOUS FIXATION RIGHT PATELLA POC GLUCOSE LABon 07-02-2018 Glucose [Mass/Vol] 108 mg/dL High 70-100 [facility] Comment on above: Performed By: #### 8 [id number] #### [facility] [address] [place] [address], [facility] APTTon 06-30-2018 aPTT Coag (Bld) [Time] 30.6 s Normal 25.0-35.0 [facility] Comment on above: Result Comment: ALL [...] THIS PURPOSE. Performed By: #### 5 6101, [id number] #### [facility] [address] [place] [address], [facility] BASIC METABOLIC PANELon 03-2 Calcium [Mass/Vol] 9.7 mg/dL Normal 8.6-10.3 [facility] Comment on above: Performed By: #### 0 0071 #### [facility] [address] [place] [address], [place] Chloride [Moles/Vol] 102 mmol/L Normal 98-107 [facility] Comment on above: Performed By: #### 0 0071 #### [facility] [address] [place] [address], [place] CO2 [Moles/Vol] 28 mmol/L Normal 21-31 [facility] Comment on above: Performed By: #### 0 0071 #### [facility] [address] [place] [address], [place] Creatinine [Mass/Vol] 1.20 mg/dL Normal 0.60-1.20 [facility] Comment on above: Performed By: #### 0 0071 #### [facility] [address] [place] [address], [place] GFR/1.73 sq M predicted among blacks MDRD (S/P/Bld) [Vol rate/Area] 56 ml/min/1.73sq m Abnormal >60 [facility] Comment on above: Performed By: #### 0 0071 #### [facility] [address] [place] [address], [place] GFR/1.73 sq M predicted among non-blacks MDRD (S/P/Bld) [Vol rate/Area] 47 ml/min/1.73sq m Abnormal >60 [facility] Comment on above: Performed By: #### 0 0071 #### [facility] [address] [place] [address], [place] Glucose [Mass/Vol] 97 mg/dL Normal 70-100 [facility] Comment on above: Performed By: #### 0 0071 #### [facility] [address] Potassium [Moles/Vol] 4.1 mmol/L Normal 3.5-5.1 [facility] Comment on above: Performed By: #### 0 0071 #### [facility] [address] [facility] Sodium [Moles/Vol] 137 mmol/L Normal 136-145 [facility] Comment on above: Performed By: #### 0 0071 #### [facility] [address] Urea nitrogen [Mass/Vol] 19 mg/dL Normal 7-25 [facility] Comment on above: Performed By: #### 0 0071 #### [facility] [address] CBC W/DIFFon 06-30-2018 ABS BASOPHILS 0.1 10*3/uL Normal 0.0-0.2 [facility] Comment on above: Performed By: #### 5 0103 #### [facility] [address] ABS IMM GRANS 0.0 10*3/uL Normal 0.0-0.2 [facility] Comment on above: Performed By: #### 5 0103 #### [facility] [address] ABS NEUTROPHILS 6.4 10*3/uL Normal 1.6-7.6 [facility] Comment on above: Performed By: #### 5 0103 #### [facility] [address] Basophils/100 WBC (Bld) 0.7 % Normal 0.0-1.0 [facility] Comment on above: Performed By: #### 5 0103 #### [facility] [address] Eosinophils (Bld) [#/Vol] 0.2 10*3/uL Normal 0.0-0.5 [facility] Comment on above: Performed By: #### 5 0103 #### [facility] [address] [place] [address], [facility] Eosinophils/100 WBC (Bld) 1.5 % Normal 0.0-6.0 [facility] Comment on above: Performed By: #### 5 0103 #### [facility] [address] [facility] [address] Erythrocyte distribution width (RBC) [Ratio] 14.4 % Normal 11.5-15.0 [facility] Comment on above: Performed By: #### 5 0103 #### [facility] [address] [facility] [address] Hematocrit (Bld) [Volume fraction] 40.6 % Normal 36.0-45.0 [facility] Comment on above: Performed By: #### 5 0103 #### [facility] [address] [facility] [place] [address], [facility] Hemoglobin (Bld) [Mass/Vol] 13.3 g/dL Normal 12.0-15.0 [facility] Comment on above: Performed By: #### 5 3 #### [facility] [address] [place] [address], [facility] IMMATURE GRANS 0.4 % Normal 0.0-1.0 [facility] Comment on above: Performed By: #### 5 0103 #### [facility] [address] [facility] [place] [address], [facility] Lymphocytes (Bld) [#/Vol] 2.6 10*3/uL Normal 1.2-4.0 [facility] Comment on above: Performed By: #### 5 3 #### [facility] [address] [facility] [place] [address], [facility] Lymphocytes/100 WBC (Bld) 26.5 % Normal 20.0-45.0 [facility] Comment on above: Performed By: #### 5 0103 #### [facility] [address] [place] [address], [facility] MCH (RBC) [Entitic mass] 27.4 pg Normal 27.0-33.0 [facility] Comment on above: Performed By: #### 5 0103 #### [facility] [address] [facility] [place] [address], [facility] MCHC (RBC) [Mass/Vol] 32.8 g/dL Normal 32.0-35.0 [facility] Comment on above: Performed By: #### 5 0103 #### [facility] [address] [facility] [place] [address], [facility] MCV (RBC) [Entitic vol] 83.5 fL Normal 82.0-98.0 [facility] Comment on above: Performed By: #### 5 0103 #### [facility] [address] [facility] [place] [address], [facility] Monocytes (Bld) [#/Vol] 0.5 10*3/uL Normal 0.1-1.0 [facility] Comment on above: Performed By: #### 5 0103 #### [facility] [address] [facility] [place] [address], [facility] MONOS 5.0 % Normal 5.0-12.0 [facility] Comment on above: Performed By: #### 5 0103 #### [facility] [address] [facility] [place] [address], [facility] Neutrophils/100 WBC (Bld) 65.9 % Normal 40.0-72.0 [facility] Comment on above: Performed By: #### 5 3 #### [facility] [address] [place] [address], [facility] Nucleated RBC/100 WBC (Bld) [Ratio] 0 % Normal 0-0 [facility] Comment on above: Performed By: #### 5 0103 #### [place] [address], [facility] PLAT CNT 290 10*3/uL Normal 150-400 [facility] Comment on above: Performed By: #### 5 0103 #### [facility] [address] [place] [address], [facility] RBC (Bld) [#/Vol] 4.86 10*6/uL Normal 3.80-5.00 [facility] Comment on above: Performed By: #### 5 0103 #### [facility] [address] [place] [address], [facility] WBC (Bld) [#/Vol] 9.68 10*3/uL Normal 4.00-10.60 [facility] Comment on above: Performed By: #### 5 0103 #### [address] KNEE RIGHT 1 OR 2 VWSon 06-05 KNEE RIGHT 1 OR 2 VWS [facility] Department of Radiology [address] [place] [id number] ======== Patient Name: MICHELLE BE : 1960 Sex: F Age: Race: White Pt. 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 Transcribed by: [email or web address], User Resident: Electronically Signed by: DEBRA DEL CID @ 06/30/2018 11:52 AM [place] [facility] Comment on above: Order Comment: , Mabel ws (X-RAY, KNEE): Radiologic Protocol , Weight Bearing?: N , With or Without Brace/Cast/Collar: With , Views (X-RAY, KNEE): Radiologic Protocol , Weight Bearing?: N , With or Without Brace/Cast/Collar: With , , , Ordering Provider - AHSAN BINGHAM PA-C , PROTHROMBIN TIMEon 9 INR Coag (PPP) [Relative time] 0.98 {INR} Normal 0.91-1.16 [facility] Comment on above: Result Comment: [facility] FOR WARFARIN THERAPY --------- [...] CHEST 1995;108:231S-246S. Performed By: #### 5 6101, [id number] #### [address] PT Coag (PPP) [Time] 13.0 s Normal 12.3-14.8 [facility] Comment on above: Result Comment: ALL RESULTS MUST BE INTERPRETED WITH RESPECT TO BLOOD DRAWING ARTIFACT OR DILUTION ERROR OF ANTICOAGULANT AT THE TIME OF SAMPLING. Performed By: #### 5 6101, [id number] #### [address] KNEE RIGHT 3 VWSon 9 KNEE RIGHT 3 VWS [facility] Department of Radiology [address] [place] [address] ======== Patient Name: MICHELLE BE : 1960 Sex: F Age: Race: White Pt. Location: 84 Patient Status: O Ordered Date: 06/15/2018 1:35:00 PM Completed Date: 06/15/2018 01:34 PM Requesting Provider: AMPARO ZHANG Attending Provider: AMPARO ZHANG Report Copy To: ADELAIDA CARRION Signs & Symptoms: M17.11 Unilateral primary osteoarthritis, right knee I10 History: [place] Comments: , Weight Bearing?: Y , Weight Bearing?: Y , , , Ordering Provider - AMPARO ZHANG PA-C , Exam: KNEE RIGHT 3 [facility] ======== KNEE RIGHT 3 S 06/15/2018 [...] effusion Electronically signed by:Anup Ellison. Transcribed by: [id number], User Resident: Electronically Signed by: ANUP ELLISON @ 06/15/2018 03:50 PM Normal [facility] Comment on above: Order Comment: , Isaiah ght Bearing?: Y , Weight Bearing?: Y , , , Ordering Provider - AMPARO ZHANG PA-C , Vital Signs Date Time Vital Sign Value Performing Clinician Facility 11-14-2024 10:16-0400 Body mass index (BMI) [Ratio] 47.62 kg/m2 Adelaida Carrion [employer] Work Phone: [facility] 11-14-2024 10:16-0400 Body temperature 97.81 [degF] Adelaida Carrion [employer] Work Phone: [facility] 11-14-2024 10:16-0400 Body weight 125.83 kg Adelaidamonse Carrion [employer] Work Phone: [facility] 11-14-2024 10:16-0400 Diastolic blood pressure 84 mm[Hg] Adelaida Carrion [employer] Work Phone: [facility] 11-14-2024 10:16-0400 Heart rate 70 /min Adelaida Sheyla [employer] Work Phone: [facility] 11-14-2024 10:16-0400 Respiratory rate 20 /min Adelaida Sheyla [employer] Work Phone: [facility] 11-14-2024 10:16-0400 SaO2% (BldA) [Mass fraction] 98 % Adelaida Carrion [employer] Work Phone: [facility] 11-14-2024 10:16-0400 Systolic blood pressure 124 mm[Hg] Adelaida Carrion [employer] Work Phone: [facility] 10-27-2024 10:05-0400 Body height 162.6 cm Harrison Pocos DO Work Phone: [facility] 10-27-2024 10:05-0400 Body mass index (BMI) [Ratio] 47.55 kg/m2 Harrison Pocos DO Work Phone: [facility] 10-27-2024 10:05-0400 Body weight 125.65 kg Harrison Pocos DO Work Phone: [facility] 10-13-2024 08:42-0400 Body mass index (BMI) [Ratio] 48.75 kg/m2 Adelaida Sheyla [employer] Work Phone: [facility] 10-13-2024 08:42-0400 Body temperature 98.49 [degF] Adelaida Sheyla [employer] Work Phone: [facility] 10-13-2024 08:42-0400 Body weight 128.82 kg Adelaida Sheyla [employer] Work Phone: [facility] 10-13-2024 08:42-0400 Diastolic blood pressure 80 mm[Hg] Adelaida Sheyla [employer] Work Phone: [facility] 10-13-2024 08:42-0400 Heart rate 85 /min Adelaida Sheyla [employer] Work Phone: [facility] 10-13-2024 08:42-0400 Respiratory rate 20 /min Adelaida Sheyla [employer] Work Phone: [facility] 10-13-2024 08:42-0400 SaO2% (BldA) [Mass fraction] 95 % Adelaida Carrion [employer] Work Phone: [facility] 10-13-2024 08:42-0400 Systolic blood pressure 132 mm[Hg] Adelaida Carrion [employer] Work Phone: [facility] 08-16-2024 11:25-0400 Body mass index (BMI) [Ratio] 48.23 kg/m2 Adelaida Iglesiasz [employer] Work Phone: [facility] 08-16-2024 11:25-0400 Body temperature 98.49 [degF] Adelaida Aichholz [employer] Work Phone: [facility] 08-16-2024 11:25-0400 Body weight 127.46 kg Adelaida Aichholz [employer] Work Phone: [facility] 08-16-2024 11:25-0400 Diastolic blood pressure 82 mm[Hg] Adelaida Aichholz [employer] Work Phone: [facility] 08-16-2024 11:25-0400 Heart rate 67 /min Adelaida Aichholz [employer] Work Phone: [facility] 08-16-2024 11:25-0400 Respiratory rate 18 /min Adelaida Aichholz [employer] Work Phone: [facility] 08-16-2024 11:25-0400 SaO2% (BldA) [Mass fraction] 97 % Adelaida Aichholz [employer] Work Phone: [facility] 08-16-2024 11:25-0400 Systolic blood pressure 120 mm[Hg] Adelaida Aichholz [employer] Work Phone: [facility] 07-27-2024 11:16-0400 Body mass index (BMI) [Ratio] 50.67 kg/m2 Adelaida Aichholz [employer] Work Phone: [facility] 07-27-2024 11:16-0400 Body temperature 98.8 [degF] Adelaida Aichholz [employer] Work Phone: [facility] 07-27-2024 11:16-0400 Body weight 133.9 kg Adelaida Aichholz [employer] Work Phone: [facility] 07-27-2024 11:16-0400 Diastolic blood pressure 86 mm[Hg] Adelaida Aichholz [employer] Work Phone: [facility] 07-27-2024 11:16-0400 Heart rate 82 /min Adelaida Carrion [employer] Work Phone: [facility] 07-27-2024 11:16-0400 Respiratory rate 24 /min Adelaida Carrion [employer] Work Phone: [facility] 07-27-2024 11:16-0400 SaO2% (BldA) [Mass fraction] 97 % Adelaida Carrion [employer] Work Phone: [facility] 07-27-2024 11:16-0400 Systolic blood pressure 124 mm[Hg] Adelaida Carrion [employer] Work Phone: [facility] 07-26-2024 10:48-0400 Body height 162.6 cm Juany Lowe PA Work Phone: [facility] 07-26-2024 10:48-0400 Body mass index (BMI) [Ratio] 50.98 kg/m2 Juany Lowe PA Work Phone: [facility] 07-26-2024 10:48-0400 Body weight 134.72 kg Juany Lowe PA Work Phone: [facility] 07-26-2024 10:48-0400 Diastolic blood pressure 84 mm[Hg] Juany Lowe PA Work Phone: [facility] 07-26-2024 10:48-0400 Systolic blood pressure 126 mm[Hg] Juany Lowe PA Work Phone: [facility] 05-24-2024 08:19-0500 Body height 162.6 cm Juany Lowe PA Work Phone: [facility] 05-24-2024 08:19-0500 Body mass index (BMI) [Ratio] 50.29 kg/m2 Juany Lowe PA Work Phone: [facility] 05-24-2024 08:19-0500 Body weight 132.9 kg Ujany Lowe PA Work Phone: [facility] 05-24-2024 08:19-0500 Diastolic blood pressure 72 mm[Hg] Juany Lowe PA Work Phone: [facility] 05-24-2024 08:19-0500 Heart rate 62 /min Juany Lowe PA Work Phone: [facility] 05-24-2024 08:19-0500 Respiratory rate 16 /min Juany Lowe PA Work Phone: [facility] 05-24-2024 08:19-0500 SaO2% (BldA) [Mass fraction] 100 % Juany Lowe PA Work Phone: [facility] 05-24-2024 08:19-0500 Systolic blood pressure 110 mm[Hg] Juany Lowe PA Work Phone: [facility] 05-12-2024 10:04-0500 Body height 162.6 cm Adelaida Kelsiez [employer] Work Phone: [facility] 05-12-2024 10:04-0500 Body mass index (BMI) [Ratio] 49.16 kg/m2 Adelaida Kelsiez [employer] Work Phone: [facility] 05-12-2024 10:04-0500 Body temperature 98.49 [degF] Adelaida Kelsiez [employer] Work Phone: [facility] 05-12-2024 10:04-0500 Body weight 129.91 kg Adeliada Kelsiez [employer] Work Phone: [facility] 05-12-2024 10:04-0500 Diastolic blood pressure 78 mm[Hg] Adelaida Kelsiez [employer] Work Phone: [facility] 05-12-2024 10:04-0500 Heart rate 80 /min Adelaida Aichholz [employer] Work Phone: [facility] 05-12-2024 10:04-0500 Respiratory rate 20 /min Adelaida Aichholz [employer] Work Phone: [facility] 05-12-2024 10:04-0500 SaO2% (BldA) [Mass fraction] 98 % Adelaida Kelsiez [employer] Work Phone: [facility] 05-12-2024 10:04-0500 Systolic blood pressure 118 mm[Hg] Adelaidamonse Iglesiasz [employer] Work Phone: [facility] 03-16-2024 09:53-0500 Body height 162.6 cm Adelaida Yinghholz [employer] Work Phone: [facility] 03-16-2024 09:53-0500 Body mass index (BMI) [Ratio] 48.41 kg/m2 Adelaida Merryholz [employer] Work Phone: [facility] 03-16-2024 09:53-0500 Body temperature 98.01 [degF] Adelaida Merryholz [employer] Work Phone: [facility] 03-16-2024 09:53-0500 Body weight 127.91 kg Adelaida Yinghholz [employer] Work Phone: [facility] 03-16-2024 09:53-0500 Diastolic blood pressure 80 mm[Hg] Adelaida Merryholz [employer] Work Phone: [facility] 03-16-2024 09:53-0500 Heart rate 79 /min Adelaida Yinghholz [employer] Work Phone: [facility] 03-16-2024 09:53-0500 Respiratory rate 18 /min Adelaida Merryholz [employer] Work Phone: [facility] 03-16-2024 09:53-0500 SaO2% (BldA) [Mass fraction] 98 % Adelaida Merryholz [employer] Work Phone: [facility] 03-16-2024 09:53-0500 Systolic blood pressure 120 mm[Hg] Adelaida Aichholz [employer] Work Phone: [facility] 03-10-2024 15:20-0500 Body height 162.6 cm Rachel REDDY Work Phone: [facility] 03-10-2024 15:20-0500 Body mass index (BMI) [Ratio] 48.41 kg/m2 Rachel Hill PA Work Phone: [facility] 03-10-2024 15:20-0500 Body weight 127.91 kg Rachelgeorgette Mitchell PA Work Phone: [facility] 03-10-2024 15:20-0500 Diastolic blood pressure 68 mm[Hg] Rachel Mitchell PA Work Phone: [facility] 03-10-2024 15:20-0500 Heart rate 74 /min Rachel Mitchell PA Work Phone: [facility] 03-10-2024 15:20-0500 Respiratory rate 16 /min Rachelgeorgette Mitchell PA Work Phone: [facility] 03-10-2024 15:20-0500 SaO2% (BldA) [Mass fraction] 98 % Rachel Stephen PA Work Phone: [facility] 03-10-2024 15:20-0500 Systolic blood pressure 102 mm[Hg] Rachel Mitchell PA Work Phone: [facility] 03-01-2024 12:48-0500 Body height 162.6 cm Juany Lowe PA Work Phone: [facility] 03-01-2024 12:48-0500 Body mass index (BMI) [Ratio] 48.92 kg/m2 Juany Lowe PA Work Phone: [facility] 03-01-2024 12:48-0500 Body weight 129.28 kg Juany Lowe PA Work Phone: [facility] 03-01-2024 12:48-0500 Diastolic blood pressure 88 mm[Hg] Juany Lowe PA Work Phone: [facility] 03-01-2024 12:48-0500 Systolic blood pressure 140 mm[Hg] Juany Lowe PA Work Phone: [facility] 02-16-2024 11:18-0500 Body height 162.6 cm Adelaida Carrion [employer] Work Phone: [facility] 02-16-2024 11:18-0500 Body mass index (BMI) [Ratio] 50.77 kg/m2 Adelaiad Aichholz [employer] Work Phone: [facility] 02-16-2024 11:18-0500 Body temperature 98.49 [degF] Adelaida Merryholz [employer] Work Phone: [facility] 02-16-2024 11:18-0500 Body weight 134.17 kg Adelaida Yinghholz [employer] Work Phone: [facility] 02-16-2024 11:18-0500 Diastolic blood pressure 82 mm[Hg] Adelaida Yinghholz [employer] Work Phone: [facility] 02-16-2024 11:18-0500 Heart rate 69 /min Adelaida Yinghholz [employer] Work Phone: [facility] 02-16-2024 11:18-0500 Respiratory rate 20 /min Adelaida Yinghholz [employer] Work Phone: [facility] 02-16-2024 11:18-0500 SaO2% (BldA) [Mass fraction] 98 % Adelaida Merryholz [employer] Work Phone: [facility] 02-16-2024 11:18-0500 Systolic blood pressure 122 mm[Hg] Adelaida Yinghholz [employer] Work Phone: [facility] 01-28-2024 13:46-0400 Body height 162.6 cm Adelaida Yinghholz [employer] Work Phone: [facility] 01-28-2024 13:46-0400 Body mass index (BMI) [Ratio] 48.99 kg/m2 Adelaida Yinghholz [employer] Work Phone: [facility] 01-28-2024 13:46-0400 Body temperature 98.71 [degF] Adelaida Yinghholz [employer] Work Phone: [facility] 01-28-2024 13:46-0400 Body weight 129.46 kg Adelaida Aichholz [employer] Work Phone: [facility] 01-28-2024 13:46-0400 Diastolic blood pressure 78 mm[Hg] Adelaida Aichholz [employer] Work Phone: [facility] 01-28-2024 13:46-0400 Heart rate 81 /min Adelaida Aichholz [employer] Work Phone: [facility] 01-28-2024 13:46-0400 Respiratory rate 18 /min Adelaida Aichholz [employer] Work Phone: [facility] 01-28-2024 13:46-0400 SaO2% (BldA) [Mass fraction] 99 % Adeliada Aichholz [employer] M[employer] Work Phone: [facility] 01-28-2024 13:46-0400 Systolic blood pressure 110 mm[Hg] Adelaida Aichholz [employer] Work Phone: [facility] 01-04-2024 09:39-0400 Body height 162.6 cm Adelaida Aichholz [employer] Work Phone: [facility] 01-04-2024 09:39-0400 Body mass index (BMI) [Ratio] 48.75 kg/m2 Adelaida Aichholz [employer] Work Phone: [facility] 01-04-2024 09:39-0400 Body temperature 97.81 [degF] Adelaida Yinghholz [employer] Work Phone: [facility] 01-04-2024 09:39-0400 Body weight 128.82 kg Adelaida Aichholz [employer]ICAL [employer] Work Phone: [facility] 01-04-2024 09:39-0400 Diastolic blood pressure 78 mm[Hg] Adelaida Aichholz [employer] Work Phone: [facility] 01-04-2024 09:39-0400 Heart rate 67 /min Adelaida Aichholz [employer]ICAL M[employer] Work Phone: [facility] 01-04-2024 09:39-0400 Respiratory rate 19 /min Adelaida Aichholz [employer]ICAL M[employer] Work Phone: [facility] 01-04-2024 09:39-0400 SaO2% (BldA) [Mass fraction] 99 % Adelaida Carrion [employer] Work Phone: [facility] 01-04-2024 09:39-0400 Systolic blood pressure 116 mm[Hg] Adelaida Carrion [employer] Work Phone: [facility] 12-09-2023 10:14-0400 Body height 162.6 cm Juany Escalanter [employer]ICAL M[employer]ER Work Phone: [facility] 12-09-2023 10:14-0400 Body mass index (BMI) [Ratio] 48.92 kg/m2 Juany Singhmor [employer] Work Phone: [facility] 12-09-2023 10:14-0400 Body weight 129.28 kg Juany Singhmor [employer]ICAL M[employer]ER Work Phone: [facility] 12-09-2023 10:14-0400 Diastolic blood pressure 78 mm[Hg] Juany Singhmor [employer]ICAL M[employer]ER Work Phone: [facility] 12-09-2023 10:14-0400 SaO2% (BldA) [Mass fraction] 97 % Juany Singhmor [employer]ICAL M[employer]ER Work Phone: [facility] 12-09-2023 10:14-0400 Systolic blood pressure 122 mm[Hg] Juany Singhmor [employer]ICAL M[employer] Work Phone: [facility] 12-08-2023 15:24-0400 Body height 162.6 cm Sonam Clevelandnagel [employer] Work Phone: [facility] 12-08-2023 15:24-0400 Body mass index (BMI) [Ratio] 48.92 kg/m2 Sonam Windnagel [employer] Work Phone: [facility] 12-08-2023 15:24-0400 Body weight 129.28 kg Sonam Windnagel [employer]ICAL M[employer]ER Work Phone: [facility] 12-08-2023 15:24-0400 Diastolic blood pressure 77 mm[Hg] Sonam Windnagel [employer] M[employer] Work Phone: [facility] 12-08-2023 15:24-0400 Heart rate 72 /min Sonam Brown [employer] M[employer] Work Phone: [facility] 12-08-2023 15:24-0400 Systolic blood pressure 134 mm[Hg] Sonam Brown [employer] Work Phone: [facility] 05-18-2023 16:30-0500 Body height 162.6 cm Adelaidamonse Hehholz [employer]ICAL M[employer]ER Work Phone: [facility] 05-18-2023 16:30-0500 Body mass index (BMI) [Ratio] 47.89 kg/m2 Adelaida Aichholz [employer] M[employer] Work Phone: [facility] 05-18-2023 16:30-0500 Body temperature 97.3 [degF] Adelaida Yinghholz [employer] M[employer] Work Phone: [facility] 05-18-2023 16:30-0500 Body weight 126.55 kg Adelaida Yinghholz [employer] M[employer] Work Phone: [facility] 05-18-2023 16:30-0500 Diastolic blood pressure 80 mm[Hg] Adelaida Aichholz [employer]ICAL M[employer] Work Phone: [facility] 05-18-2023 16:30-0500 Heart rate 76 /min Adelaida Aichholz [employer]ICAL M[employer]ER Work Phone: [facility] 05-18-2023 16:30-0500 Respiratory rate 19 /min Adelaida Aichholz [employer] M[employer]ER Work Phone: [facility] 05-18-2023 16:30-0500 SaO2% (BldA) [Mass fraction] 97 % Adelaida Aichholz [employer]ICAL M[employer]ER Work Phone: [facility] 05-18-2023 16:30-0500 Systolic blood pressure 134 mm[Hg] Adelaida Aichholz [employer]ICAL M[employer]ER Work Phone: [facility] 03-23-2023 12:10-0500 Diastolic blood pressure 98 mm[Hg] Adelaida Aichholz Work Phone: [facility] 03-23-2023 12:10-0500 Heart rate 76 /min Adelaida Sousaholnena Work Phone: [facility] 03-23-2023 12:10-0500 Respiratory rate 18 /min Adelaida Sousaholnena Work Phone: [facility] 03-23-2023 12:10-0500 SaO2% (BldA) [Mass fraction] 99 % Adelaida Carrion Work Phone: [facility] 03-23-2023 12:10-0500 Systolic blood pressure 162 mm[Hg] Adelaida Sousaholnena Work Phone: [facility] 03-23-2023 10:53-0500 Body height 162.56 cm Adelaida Carrion Work Phone: [facility] 03-23-2023 10:53-0500 Body weight 125.64 kg Adelaida Carrion Work Phone: [facility] 12-19-2022 14:55-0400 Body height 162.56 cm Rosemary Vernonmond Other [employer] Other 12-19-2022 14:55-0400 Body mass index (BMI) [Ratio] 47.85 kg/m2 Rosemary Vernonmond Other [employer] Other 12-19-2022 14:55-0400 Body temperature 97.8 [degF] Rosemary Marita Other [employer] Other 12-19-2022 14:55-0400 Body weight 126.46 kg Rosemary Vernonmond Other [employer] Other 12-19-2022 14:55-0400 Respiratory rate 20 /min Rosemary Marita Other [employer] Other 12-19-2022 14:55-0400 SaO2% (BldA) [Mass fraction] 95 % Rosemary Kirkland Other [employer] Other 11-20-2022 13:12-0400 Body temperature 97.7 [degF] Adelaida Aichholz Work Phone: [facility] 11-20-2022 13:12-0400 SaO2% (BldA) [Mass fraction] 96 % Adelaida Aichholz Work Phone: [facility] 11-20-2022 07:44-0400 Diastolic blood pressure 90 mm[Hg] Adelaida Aichholz Work Phone: [facility] 11-20-2022 07:44-0400 Heart rate 103 /min Adelaida Aichholz Work Phone: [facility] 11-20-2022 07:44-0400 Systolic blood pressure 152 mm[Hg] Adelaida Aichholz Work Phone: [facility] 11-19-2022 20:00-0400 Respiratory rate 18 /min Adelaida Aichholz Work Phone: [facility] 11-18-2022 15:18-0400 Body height 162.56 cm Adelaida Aichholz Work Phone: [facility] 11-17-2022 09:00-0400 Body weight 122.92 kg Adelaida Aichholz Work Phone: [facility] Encounters Encounter Date Encounter Type Care Provider Facility Start: 11-14-2024 End: 11-14-2024 Bamboo flowsheet Adelaida Sheyla [employer] Work Phone: [facility] Start: 11-14-2024 End: 11-14-2024 Bamboo flowsheet Adelaida Aichkushz [employer]ICAL M[employer]ER Work Phone: [facility] Start: 11-14-2024 End: 11-14-2024 Office outpatient visit 25 minutes Adelaida Carrion NP Work Phone: [facility] Comment on above: Well woman exam with routine gynecological exam (Primary Dx); Morbid (severe) obesity due to excess calories ([facility]); Primary hypertension ; Anemia, unspecified type; Bilateral lower extremity edema; Osteoporosis, unspecified osteoporosis type, unspecified pathological fracture presence ; Chronic kidney disease, stage 3a ([facility]); Pre-diabetes Start: 11-14-2024 End: 11-14-2024 Patient encounter procedure Adelaida Carrion NP Work Phone: [facility] Start: 11-08-2024 ambulatory Eduardo Monk Facility:[facility] Start: 10-27-2024 End: 10-27-2024 Patient encounter procedure Harrison Shea Pocos DO Work Phone: [facility] Comment on above: Right knee pain, uns pecified chronicity (Primary Dx); Primary osteoarthritis of right knee; Morbid obesity ([facility]) Start: 10-27-2024 End: 10-27-2024 ambulatory MICHEL POCOS Not Available Start: 10-27-2024 End: 10-27-2024 ambulatory MICHEL POCOS Not Available Start: 10-13-2024 End: 10-13-2024 Bamboo flowsheet Adelaida Carrion NP Work Phone: [facility] Start: 10-13-2024 End: 10-13-2024 Bamboo flowsheet Adelaida Carrion [employer] M[employer] Work Phone: [facility] Start: 10-13-2024 End: 10-13-2024 Office outpatient visit 25 minutes Adelaida Carrion NP Work Phone: [facility] Comment on above: Disorientation (Prim zuleika Dx); Essential (primary) hypertension ; Allergic rhinitis, unspecified seasonality, unspecified trigger; Allergic rhinitis, unspecified; Gastro-esophageal reflux disease without esophagitis; Bilateral lower extremity edema; OSMANY (obstructive sleep apnea); Primary hypertension ; Osteoporosis, unspecified osteoporosis type, unspecified pathological fracture presence Start: 10-13-2024 End: 10-13-2024 ambulatory ADELAIDA CARRION Not Available Start: 10-10-2024 End: 10-10-2024 ambulatory Syeda Mancuso MD Facility:[facility] Start: 10-08-2024 End: 10-09-2024 Emergency department patient visit ADELAIDA CARRION [facility] Start: 09-29-2024 End: 09-29-2024 Clinisync Result Encounter [...] 09-19-2024 End: 09-19-2024 ambulatory Syeda Mancuso MD [facility] Start: 08-16-2024 End: 08-16-2024 Bamboo flowsheet Adelaida Carrion [employer]ICAL M[employer]ER Work Phone: [facility] Start: 08-16-2024 End: 08-16-2024 Bamboo flowsheet Adelaida Carrion [employer]ICAL M[employer]ER Work Phone: [facility] Start: 08-16-2024 End: 08-16-2024 Office outpatient visit 15 minutes Adelaida Carrion [employer]ICAL M[employer]ER Work Phone: [facility] Comment on above: Primary hypertension (CMS/HCC) (Primary Dx); Bronchitis; Bilateral lower extremity edema; Morbid (severe) obesity due to excess calories (CMS/HCC); Pre-diabetes; Allergic rhinitis, unspecified seasonality, unspecified trigger; Encounter for screening mammogram for malignant neoplasm of breast; Former cigarette smoker Start: 08-16-2024 End: 08-16-2024 ambulatory ADELAIDA CARRION Not Available Start: 08-08-2024 End: 08-08-2024 ambulatory Syeda Mancuso MD Facility: [facility] Start: 07-27-2024 End: 07-27-2024 Bamboo flowsheet Adelaida Carrion [employer] M[employer]ER Work Phone: [facility] Start: 07-27-2024 End: 07-27-2024 Bamboo flowsheet Adelaida Carrion [employer] M[employer]ER Work Phone: [facility] Start: 07-27-2024 End: 07-27-2024 Office outpatient visit 15 minutes Adelaida Carrion [employer] M[employer]ER Work Phone: [facility] Comment on above: Primary hypertension (CMS/HCC) (Primary Dx); Morbid (severe) obesity due to excess calories (CMS/HCC); Essential (primary) hypertension (CMS/HCC); Allergic rhinitis, unspecified; Gastro-esophageal reflux disease without esophagitis; Bilateral lower extremity edema; Bronchitis Start: 07-27-2024 End: 07-27-2024 ambulatory ADELAIDA SHEYLA Not Available Start: 07-26-2024 End: 07-26-2024 Bamboo flowsheet Juany Lowe PA Work Phone: [facility] Start: 07-26-2024 End: 07-26-2024 Bamboo flowsheet Juany Lowe PA Work Phone: [facility] Start: 07-26-2024 End: 07-26-2024 Office outpatient visit 25 minutes Juany Lowe PA Work Phone: [facility] Comment on above: OSMANY (obstructive sle ep apnea) (Primary Dx); Restless leg; 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CMS/HCC); Concentration deficit Start: 07-26-2024 End: 07-26-2024 ambulatory JUANY LOWE Not Available Start: 07-18-2024 End: 07-18-2024 ambulatory Syeda Mancuso MD Facility: [facility] Start: 06-14-2024 End: 06-14-2024 Refill Adelaida Carrion [employer] Work Phone: [facility] Comment on [...] 05-12-2024 End: 05-12-2024 Bamboo flowsheet Adelaida Carrion [employer]ICAL M[employer]ER Work Phone: [facility] Start: 05-12-2024 [...] End: 04-12-2024 Refill Juany REDDY Work Phone: [facility] [address] [facility] Comment on above: Transient alteration of awareness (Primary Dx); Restless leg Start: 04-07-2024 End: 04-07-2024 Patient encounter procedure David Foster PhD Work Phone: [facility] Comment on above: Metabolic encephalop athy [...] 03-16-2024 End: 03-16-2024 Bamboo flowsheet Adelaida Carrion [employer] Work Phone: [facility] Start: 03-16-2024 End: 03-16-2024 Bamboo flowsheet Adelaida Carrion [employer]ICAL M[employer]ER Work Phone: [facility] Start: 03-16-2024 End: 03-16-2024 Office outpatient visit 25 minutes Adelaida Carrion [employer]ICAL M[employer]ER Work Phone: [facility] Comment on [...] [facility] Start: 03-14-2024 End: 03-14-2024 [employer] Motionheet David Foster PhD Work Phone: [facility] Start: 03-14-2024 End: 03-14-2024 [employer] Motionizabela Foster PhD Work Phone: [facility] [...] (CMS/HCC); Bipolar affective disorder, remission status unspecified ([facility]CC); Family history of dementia Start: 03-10-2024 End: 03-10-2024 Office outpatient visit 25 minutes Rachel REDDY Work Phone: [facility] Comment on above: Altered mental statu s, unspecified altered mental status type (Primary Dx); Restless leg; 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CMS/HCC); OSMANY (obstructive sleep apnea) Start: 03-10-2024 End: 03-10-2024 ambulatory RACHEL MITCHELL Not Available Start: 03-03-2024 End: 03-07-2024 Evaluation and management of inpatient Adelaida Carrion Facility:[facility] Start: 03-02-2024 End: 03-04-2024 Clinisync Result Encounter Generic External Data Provider [facility] External Department Unsolicited Start: 03-02-2024 End: 03-04-2024 Clinisync Result Encounter Generic External Data Provider [facility] External Department Unsolicited Start: 03-02-2024 End: 03-02-2024 Refill Adelaida Carrion [employer] Work Phone: [facility] Comment on above: Yeast infection of t he skin Start: 03-01-2024 End: 03-01-2024 ambulatory JUANY LEGGETT Not Available Start: 03-01-2024 End: 03-01-2024 Office outpatient visit 25 minutes Juany REDDY Work Phone: [facility] [facility] Comment on above: Metabolic encephalop athy (Primary Dx); OSMANY (obstructive sleep apnea); Restless leg; 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 (CMS/HCC); Degeneration of intervertebral disc of lumbar region with discogenic back pain and lower extremity pain; Memory change Start: 02-28-2024 End: 02-29-2024 Refill Adelaida Carrion [employer] Work Phone: [facility] Comment on above: Allergic rhinitis, u nspecified Start: 02-24-2024 End: 02-24-2024 Refill Adelaida Carrion [employer] Work Phone: [facility] Comment on above: Essential (primary) hypertension (CMS/HCC); Allergic rhinitis, unspecified Start: 02-16-2024 End: 02-16-2024 Bamboo flowsheet Adelaida Carrion NP Work Phone: [facility] Start: 02-16-2024 End: 02-23-2024 Clinisync Result Encounter Adelaida Carrion NP Work Phone: [facility] Unsolicited Start: 02-16-2024 End: 02-23-2024 Clinisync Result Encounter Adelaida Carrion [employer] Work Phone: [facility] Unsolicited Start: 02-16-2024 End: 02-16-2024 Patient encounter procedure Adelaida Aichholz [employer]ICAL M[employer]ER Work Phone: [facility] Start: 02-16-2024 End: 02-16-2024 Periodic preventive med est patient 40-64yrs Adelaida Carrion [employer] M[employer]ER Work Phone: [facility] Comment on above: Well woman exam with routine gynecological exam (Primary Dx); Morbid obesity (CMS/HCC) Start: 02-16-2024 End: 02-16-2024 ambulatory ADELAIDA CARRION Not Available Start: 02-04-2024 End: 02-04-2024 Refill Sonamolvin Brown [employer] Work Phone: [facility] Comment on above: Restless leg Start: 01-28-2024 End: 01-28-2024 Bamboo flowsheet Adelaida Carrion [employer]ICAL M[employer]ER Work Phone: [facility] Start: 01-28-2024 End: 01-28-2024 Bamboo flowsheet Adelaida Sheyla [employer] Work Phone: [facility] Start: 01-28-2024 End: 01-28-2024 Office outpatient visit 15 minutes Adelaida Carrion [employer]ICAL M[employer]ER Work Phone: [facility] Comment on [...] End: 01-05-2024 Clinisync Result Encounter Adelaida Carrion [employer]ICAL M[employer]ER Work Phone: [facility] Unsolicited Start: 01-05-2024 End: 01-05-2024 Clinisync Result Encounter Adelaida Sousabob [employer]ICAL MIXER Work Phone: [facility] External Department Unsolicited Start: 01-04-2024 End: 01-04-2024 Bamboo flowsheet Adelaida Iglesiasnena [employer]ICAL M[employer]ER Work Phone: [facility] Start: 01-04-2024 End: 01-04-2024 Bamboo flowsheet Adelaida Iglesiasnena [employer]ICAL M[employer]ER Work Phone: [facility] Start: 01-04-2024 End: 01-04-2024 Office outpatient visit 25 minutes Adelaida Sousabob [employer]ER Work Phone: [facility] Comment on above: Bilateral lower extr emity edema (Primary Dx); Essential (primary) hypertension (CMS/HCC); Allergic rhinitis, unspecified; OSMANY (obstructive sleep apnea); Primary hypertension (CMS/HCC); Morbid obesity (CMS/HCC) Start: 01-04-2024 End: 01-04-2024 ambulatory ADELAIDA SOUSAKUSHNena Not Available Start: 12-30-2023 End: 12-30-2023 Refill Adelaida Iglesiasnena [employer] Work Phone: [facility] Comment on above: Lower extremity elis a Start: 12-09-2023 End: 12-09-2023 Office outpatient visit 25 minutes Juany Caballero [employer]ICAL M[employer]ER Work Phone: [email or web address] [address] [facility] Comment on above: OSMANY (obstructive sle ep apnea) (Primary Dx); Restless leg Start: 12-09-2023 End: 12-09-2023 ambulatory JUANY CABALLERO Not Available Start: 12-08-2023 End: 12-08-2023 ambulatory SONAM Keiry BROWN Not Available Start: 12-08-2023 End: 12-08-2023 Office outpatient visit 25 minutes Sonam Brown [employer]ER Work Phone: [email or web address] [facility] Comment on above: 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CMS /HCC) (Primary Dx); Restless leg; Metabolic encephalopathy Start: 12-08-2023 End: 12-08-2023 Bamboo flowsheet Sonam Brown [employer]ICAL M[employer]ER Work Phone: [facility] Start: 12-08-2023 End: 12-08-2023 Bamboo flowsheet Sonamolvin Brown [employer] M[employer]ER [facility] Start: 11-27-2023 End: 11-27-2023 Refill Adelaida Carrion [employer]ICAL M[employer]ER Work Phone: [facility] Comment on above: Yeast infection of t he skin (Primary Dx) Start: 05-21-2023 Refill Adelaida Carrion [employer]ICAL M[employer]ER Work Phone: [facility] Comment on above: Acute cystitis with hematuria (Primary Dx) Start: 05-18-2023 End: 05-18-2023 Office outpatient visit 25 minutes Adelaida Carrion NP Work Phone: [facility] Comment on above: Encounter [...] encounter Start: 05-18-2023 Bamboo flowsheet Adelaida Carrion [employer]ICAL M[employer]ER Work Phone: [facility] Start: 05-18-2023 Bamboo flowsheet Adelaida Carrion CONICAL MIXER Work Phone: [facility] Start: 05-18-2023 End: 05-18-2023 Patient encounter procedure Adelaida Carrion CONICAL MIXER Work Phone: [facility] Start: 03-23-2023 End: 03-23-2023 Admission to same day surgery center Adelaida Carrion Work Phone: [facility] Work Phone: Start: 03-23-2023 End: 03-23-2023 ambulatory Adelaida Carrion Work Phone: [facility] Work Phone: Start: 02-12-2023 End: 02-12-2023 ambulatory Jace Graham Other [employer] Other Start: 02-12-2023 Telephone encounter Jace CORADO [employer] Start: 12-19-2022 End: 12-19-2022 ambulatory Rosemary Kirkland Other [employer] Other Start: 12-19-2022 Office outpatient ne w 10 minutes Rosemary Kirkland [facility] Start: 11-17-2022 End: 11-20-2022 Evaluation and management of inpatient Adelaida Carrion Work Phone: [facility] [place] [address] Work Phone: Start: 09-04-2022 ambulatory ARIAN JOHNSON . Facili ty:[facility] Start: 08-26-2022 ambulatory NARENDRANATH LAKSHMIPATHY . Facility:[facility] Start: 08-08-2022 End: 08-09-2022 ambulatory ELECTRIC GOLF CART REPAIRER ADELAIDA CARRION Facility:[facility] Start: 07-25-2022 End: 07-26-2022 ambulatory ELECTRIC GOLF CART REPAIRER ADELAIDA CARRION Facility:[facility] Start: 07-15-2022 End: 07-15-2022 ambulatory NARENDRANATH LAKSHMIPATHY . Facility:[facility] Start: 07-11-2022 ambulatory NARENDRANATH LAKSHMIPATHY . Facility:[facility] Start: 06-26-2022 End: 06-27-[address] FINA NIXON . Facility:[facility] Start: 06-11-2022 ambulatory ELECTRIC GOLF CART REPAIRER ADELAIDA CARRION Facil ity:[facility] Start: 05-21-2022 End: 06-11-2022 ambulatory ELECTRIC GOLF CART REPAIRER ADELAIDA KELSIEZ Facility:[facility] Start: 05-08-2022 End: 05-09-2022 ambulatory ELECTRIC GOLF CART REPAIRER ADELAIDA AICHHOLZ Facility:[facility] Start: 04-28-2022 End: 04-28-2022 ambulatory LIVIER CARRION Facility:[facility] Start: 04-03-2022 End: 04-04-[address] FINA NIXON . Facility:[facility] Start: 03-19-2022 End: 03-20-2022 ambulatory LIVIER CARRION Facility:[facility] Start: 02-20-2022 End: 02-20-2022 ambulatory GILMER PURA Facility:[facility] Start: 01-10-2022 End: 02-12-2022 ambulatory BRIDGETTE Ca [facility] Facility:[facility] Start: 01-02-2022 End: 01-03-[address] FINA NIXON . Facility:[facility] Start: 01-01-2022 End: 01-02-2022 ambulatory BRIDGETTE Ca [facility] Facility:[facility] Start: 12-16-2021 End: 12-16-2021 [...] End: 07-03-2018 Patient encounter procedure SUKI ESCALANTE Facility:[facility] Procedures Date Procedure Procedure Detail Performing Clinician Start: 10-27-2024 Radiologic examinati on knee 3 views Michel Pocos DO Work Phone: Start: 09-29-2024 Radex hips bilateral with pelvis 2 views Generic External Data Provider Start: 09-26-2024 CT LUNG SCREENING LOW DOSE Adelaida Sheyla [employer] Work Phone: Start: 09-26-2024 MM TOMOSYNTHESIS SCR EENING BI Adelaida Sheyla [employer] Work Phone: Start: 09-26-2024 XR SHOULDER RT MIN 2V G eneric External Data Provider Start: 09-26-2024 Mammography Adelaida pereznena [employer] Work Phone: Start: 08-16-2024 Hemoglobin glycosylated a1c Adelaida Iglesiasnena [employer] Work Phone: Start: 03-02-2024 BLOOD CULTURE 1 Generic External Data Provider Start: 02-16-2024 IGP,APTIMA HPV,AGE GDLN Adelaida Sheyla [employer] Work Phone: Start: 01-28-2024 Urnls dip stick/tabl et rgnt non-auto w/o micrscp Adelaida Sheyla [employer] Work Phone: Start: 01-21-2024 MHPT CULT,URINE Generic External Data Provider Start: 01-05-2024 ALL BASIC METABOLIC PANEL Adelaida Sheyla [employer] Work Phone: Start: 09-18-2023 Mammography Adelaida Carpenter rachel [employer] Work Phone: Start: 03-23-2023 Screening colonoscopy L oneal Sheyla Work Phone: Start: 03-23-2023 Colonoscopy Adelaida Yingshira rachel [employer] Work Phone: Start: 09-15-2022 Mammography Adelaida Carpenter rachel [employer] Work Phone: Start: 08-28-2022 Microscopic observat ion [Identifier] in Cervix by Cyto stain Adelaida Sheyla [employer] Work Phone: Start: 07-02-2018 ANESTH KNEE AREA SURGERY CHAPARRITA HENDRICKS Start: 07-02-2018 REMOVAL OF SUPPORT IMPLANT SUKI EBRAHEIM Start: 07-02-2018 TREAT KNEECAP FRACTURE SUKI EBRAHEIM Plan of Treatment Date Care Activity Detail Author Start: 03-23-2033 Screening for malign ant neoplasm of colon [facility] Start: 09-26-2025 Screening for malign ant neoplasm of breast Mammogram [facility] Start: 09-26-2025 Screening for malign ant neoplasm of lung Lung Cancer Screening Shared Decision Making [facility] Comment on above: Postponed from 12/05 (Other Medical Reasons) Start: 08-28-2025 Screening for malign ant neoplasm of cervix [facility] Start: 02-15-2025 Medicare Annual Well ness (AWV) Medicare Annual Wellness (AWV) [facility] Start: 2024 Influenza vaccination Influenza Vacc ine (#1) [facility] Start: 11-18-2024 End: 11-18-2024 Patient encounter procedure 11/18/2024 10:15 AM EDT Office Visit [facility] [address] [place] [id number] Harrison Hoyos, DO [address] [address] [facility] Start: 11-17-2024 End: 11-17-2024 Professional / ancillary services management 11/17/2024 8:45 AM EDT Ancillary Procedure [facility] [address] [place] [address] [facility] Start: 11-14-2024 End: 11-14-2025 25-hydroxyvitamin D3 [Mass/volume] in Serum or Plasma Vitamin D 25 hydroxy Lab Routine Chronic kidney disease, stage 3a (CMS-HCC) Expected: 11/14/2024 (Approximate), Expires: 11/14/2025 [facility] Comment on above: Expected: 11/14/2024 (Approximate), Expires: 11/14/2025 Start: 11-14-2024 End: 11-14-2025 CBC W Auto Differential panel - Blood CBC and differential Lab Routine Anemia, unspecified type Expected: 11/14/2024 (Approximate), Expires: 11/14/2025 [facility] Comment on above: Expected: 11/14/2024 (Approximate), Expires: 11/14/2025 Start: 11-14-2024 End: 11-14-2025 Comprehensive metabolic 2000 panel - Serum or Plasma Comprehensive metabolic panel Lab Routine Primary hypertension Bilateral lower extremity edema Osteoporosis, unspecified osteoporosis type, unspecified pathological fracture presence Chronic kidney disease, stage 3a (CMS-HCC) Pre-diabetes Expected: 11/14/2024 (Approximate), Expires: 11/14/2025 [facility] Comment on above: Expected: 11/14/2024 (Approximate), Expires: 11/14/2025 Start: 11-14-2024 End: 11-14-2025 Lipid 1996 panel - Serum or Plasma Lipid panel Lab Routine Pre-diabetes Expected: 11/14/2024 (Approximate), Expires: 11/14/2025 [facility] Comment on above: Expected: 11/14/2024 (Approximate), Expires: 11/14/2025 Start: 11-14-2024 End: 11-14-2025 Microalbumin/Creatinine panel in random Urine Microalbumin / creatinine, urine ratio Lab Routine Primary hypertension Pre-diabetes Expected: 11/14/2024 (Approximate), Expires: 11/14/2025 [facility] Comment on above: Expected: 11/14/2024 (Approximate), Expires: 11/14/2025 Start: 11-14-2024 End: 11-14-2025 THIN PREP TIS PAP AND HR HPV DNA THIN PREP TIS PAP AND HR HPV DNA Pathology and Cytology Routine Well woman exam with routine gynecological exam Expected: 11/14/2024 (Approximate), Expires: 11/14/2025 [facility] Work Phone: Comment on above: Expected: 11/14/2024 (Approximate), Expires: 11/14/2025 Start: 11-14-2024 End: 11-14-2025 Urinalysis complete panel - Urine Urinalysis with reflex microscopic (clean catch) Lab Routine Primary hypertension Pre-diabetes Expected: 11/14/2024 (Approximate), Expires: 11/14/2025 [facility] Comment on above: Expected: 11/14/2024 (Approximate), Expires: 11/14/2025 Start: 11-14-2024 End: 11-14-2024 Patient encounter procedure [facility] Comment on above: Morbid (severe) obes ity due to excess calories ([facility]) (Primary Dx); Well woman exam with routine gynecological exam; Primary hypertension ; Anemia, unspecified type; Bilateral lower extremity edema; Osteoporosis, unspecified osteoporosis type, unspecified pathological fracture presence ; Chronic kidney disease, stage 3a (CMS-HCC); Pre-diabetes Start: 10-13-2024 End: 10-13-2025 DXA Skeletal system Views for bone density DEXA bone density Imaging Routine Osteoporosis, unspecified osteoporosis type, unspecified pathological fracture presence Expected: 10/13/2024 (Approximate), Expires: 10/13/2025 [facility] Work Phone: Comment on above: Expected: 10/13/2024 (Approximate), Expires: 10/13/2025 Start: 10-13-2024 End: 10-13-2024 Patient encounter procedure 10/13/2024 9:00 AM EDT Office Visit [facility] [address] [place] [phone] Adelaida Carrion NP [address] [place] [address] Arrived [facility] Comment on above: Arrived Start: 09-22-2024 End: 09-22-2024 Patient encounter procedure 09/22/2024 11:00 AM EDT Office Visit [facility] [place] [address] [place] [phone] Rachel Mitchell PA [address] [place], [place] [phone] [facility] Start: 09-17-2024 Screening for malign ant neoplasm of breast Mammogram [facility] Start: 08-16-2024 End: 08-16-2025 CT Chest for screening WO contrast CT lung screening low dose Imaging Routine Former cigarette smoker Expected: 08/16/2024 (Approximate), Expires: 08/16/2025 [facility] Comment on above: Expected: 08/16/2024 (Approximate), Expires: 08/16/2025 Start: 08-16-2024 End: 10-16-2025 MG Breast - bilateral Screening Bilateral screening mammogram Imaging Routine Encounter for screening mammogram for malignant neoplasm of breast Expected: 08/16/2024 (Approximate), Expires: 10/16/2025 [facility] Work Phone: Comment on above: Expected: 08/16/2024 (Approximate), Expires: 10/16/2025 Start: 08-16-2024 End: 08-16-2024 [facility] Comment on above: Bronchitis (Primary Dx); Primary hypertension (CMS/HCC); Bilateral lower extremity edema; Morbid (severe) obesity due to excess calories (CMS/HCC); Pre-diabetes Start: 08-11-2024 End: 08-11-2024 Patient encounter procedure 08/11/2024 10:30 AM EDT [facility] [address] [place] [phone] Adelaida Carrion NP [address] [place] [phone] [facility] Start: 07-27-2024 End: 07-27-2024 Patient encounter procedure 07/27/2024 11:30 AM EDT Office Visit [facility] [address] [place] [phone] Adelaida Carrion NP [address] [place] [phone] Primary hypertension (CMS/HCC) (Primary Dx); Morbid (severe) obesity due to excess calories (CMS/HCC) [facility] Comment on above: Primary hypertension (CMS/HCC) (Primary Dx); Morbid (severe) obesity due to excess calories (CMS/HCC) Start: 07-26-2024 End: 07-26-2024 Patient encounter procedure [facility] Comment on above: Arrived Start: 06-22-2024 End: 06-22-2024 Patient encounter procedure 06/22/2024 11:20 AM EDT Office Visit [facility] [address] [place] [phone] Juany Leggett PA [address] [place], [place] [phone] [facility] [place] [facility] Start: 06-15-2024 End: 06-15-2024 Patient encounter procedure 06/15/2024 9:20 AM EDT Office Visit [facility] [address] [place] [phone] Adelaida Carrion, [place] [address] [place] [phone] [facility] Start: 05-24-2024 End: 05-24-2024 Patient encounter procedure [facility] Comment on above: Arrived Start: 05-18-2024 Medicare Annual Well ness (AWV) Medicare Annual Wellness (AWV) [facility] Start: 05-12-2024 End: 05-12-2024 Patient encounter procedure [facility] Comment on above: Primary hypertension (CMS/HCC) (Primary Dx); Chronic kidney disease, stage 3a (HCC) (CMS/HCC); Morbid (severe) obesity due to excess calories (CMS/HCC); Body mass index (BMI) 45.0-49.9, adult (CMS/HCC); OSMANY (obstructive sleep apnea); Hemiparesis, right (CMS/HCC); Gastroesophageal reflux disease, unspecified whether esophagitis present; Metabolic encephalopathy Start: 04-07-2024 End: 04-07-2024 Patient encounter procedure 04/07/2024 12:30 PM EST Office Visit [facility] [address] [phone] [facility] Start: 04-04-2024 End: 04-04-2024 Patient encounter procedure 04/04/2024 1:20 PM EST Office Visit [facility] [address] [place] [phone] Adelaida Carrion, [place] [address] [place] [phone] [facility] Start: 03-22-2024 End: 03-22-2024 Clinical Support 03/22/2024 10:00 AM EST Clinical Support [facility] [place] [address] [place] [address] [facility] [place] [facility] Start: 03-16-2024 End: 03-16-2024 Patient encounter procedure [facility] Comment on above: Metabolic encephalop athy (Primary Dx); OSMANY (obstructive sleep apnea); Morbid obesity (CMS/HCC); Bilateral lower extremity edema; Tobacco dependence; Bipolar disorder with severe depression (CMS/HCC); At risk for polypharmacy; Anxiety Start: 03-14-2024 End: 03-14-2024 Patient encounter procedure 03/14/2024 10:00 AM EST Office Visit [facility] [address] [address] [place] [address] David Foster, PhD [address] [place], [place] [phone] [facility] Start: 03-11-2024 End: 03-11-2025 EEG 2 Hour Routine EEG 2 Hour Routine Neurology Routine Altered mental status, unspecified altered mental status type Expected: 03/11/2024 (Approximate), Expires: 03/11/2025 [facility] Work Phone: Comment on above: Expected: 03/11/2024 (Approximate), Expires: 03/11/2025 Start: 03-10-2024 End: 03-10-2024 Patient encounter procedure 03/10/2024 3:40 PM EST Office Visit [facility] [address] [place] [phone] Rachel Mitchell PA [address] [place] [address] [facility] Start: 03-01-2024 End: 03-01-2024 Patient encounter procedure 03/01/2024 12:00 PM EST Office Visit [facility] [place] [address] [facility] [address] [place] [address] Juany Leggett PA [address] [place] [address] [facility] Start: 02-29-2024 End: 02-29-2024 Patient encounter procedure 02/29/2024 2:40 PM EST [facility] [address] [facility] [address] [place] [address] Sonam Brown, [employer] [address] [place] [address] [facility] Start: 02-16-2024 End: 02-15-2025 THIN PREP TIS PAP AND HR HPV DNA THIN PREP TIS PAP AND HR HPV DNA Pathology and Cytology Routine Well woman exam with routine gynecological exam Expected: 02/16/2024 (Approximate), Expires: 02/15/2025 [facility] Work Phone: Comment on above: Expected: 02/16/2024 (Approximate), Expires: 02/15/2025 Start: 02-16-2024 End: 02-16-2024 Patient encounter procedure 02/16/2024 11:30 AM EST Procedure Visit [facility] [address] [place] [address] Adelaida Carrion NP [address] [place] [address] [facility] Start: 02-04-2024 Influenza vaccination Influenza Vacc ine (#1) [facility] Comment on above: Postponed from 12/05 (Patient Does Not Have Time) Start: 01-28-2024 End: 01-27-2025 URINARY TRACT INFECTION (HTRX) URINARY TRACT INFECTION (HTRX) Lab Routine Acute cystitis without hematuria Expected: 01/28/2024 (Approximate), Expires: 01/27/2025 [facility] Work Phone: Comment on above: Expected: 01/28/2024 (Approximate), Expires: 01/27/2025 Start: 01-28-2024 End: 01-28-2024 Patient encounter procedure [facility] Comment on above: Tobacco dependence ( Primary Dx) Start: 01-04-2024 End: 01-03-2025 Basic metabolic 1998 panel - Serum or Plasma Basic metabolic panel Lab Routine Bilateral lower extremity edema Expected: 01/04/2024 (Approximate), Expires: 01/03/2025 [facility] Work Phone: Comment on above: Expected: 01/04/2024 (Approximate), Expires: 01/03/2025 Start: 01-04-2024 End: 01-04-2024 Patient encounter procedure [facility] Comment on above: Essential (primary) hypertension (CMS/HCC); Allergic rhinitis, unspecified Start: 12-09-2023 End: 12-09-2023 Patient encounter procedure 12/09/2023 10:30 AM EDT Office Visit [facility] [address] [place] [phone] Juany Caballero NP [address] [place], [place] [facility] Start: 12-08-2023 End: 12-08-2023 Patient encounter procedure 12/08/2023 3:20 PM EDT Office Visit [facility] [address] [place], [place] [address], [place] [phone] Sonam Brown NP [address] [place], [place] [phone] [facility] Start: 09-16-2023 Screening for malign ant neoplasm of breast Mammogram [facility] Start: 08-17-2023 End: 08-17-2023 Patient encounter procedure 08/17/2023 9:20 AM EDT Office Visit [facility] [address] [place] [address] Adelaida Carrion NP [address] [place] [phone] [facility] Start: 05-22-2023 End: 05-22-2023 Patient encounter procedure 05/22/2023 8:45 AM EST Office Visit [facility] [address] [facility] [address] [place] [address] Travon Hines PA [address] [facility] [address] [place] [address] [facility] Start: 05-18-2023 End: 05-18-2023 Patient encounter procedure 05/18/2023 4:30 PM EST Office Visit [facility] [address] [place] [phone] Adelaida Carrion NP [address] [place] [phone] Arrived [facility] Comment on above: Arrived Start: 05-18-2023 End: 05-18-2024 XR Hip - left 3 Views XR hip left 2 or 3 views Imaging Routine Left hip pain Expected: 05/18/2023 (Approximate), Expires: 05/18/2024 [facility] Work Phone: Comment on above: Expected: 05/18/2023 (Approximate), Expires: 05/18/2024 Start: 03-23-2023 [facility] Start: 11-20-2022 [facility] Start: 11-18-2022 Referral to clinical claims examiner [facility] Start: 11-17-2022 Hospital admission [facility] Start: 11-17-2022 [facility] Start: 12-06-1991 Screening for malign ant neoplasm of cervix HPV/Cotest [facility] Start: 1960 Medicare Annual Well ness (AWV) Medicare Annual Wellness (AWV) [facility] Start: 1960 Screening for malign ant neoplasm of colon [facility] Start: 1960 Screening for malign ant neoplasm of lung Lung Cancer Screening Shared Decision Making [facility] BLOOD CULTURE 1 BLOOD CULTURE 1 Lab Routine 03/02/2024 3:20 AM EST [facility] Patient Education [facility] Work Phone: Patient referral [facility] Work Phone: XR Knee - right 3 Views XR knee 3 views right Imaging Routine Right knee pain, unspecified chronicity 10/27/2024 8:18 AM EDT [facility] Work Phone: [facility] Immunizations Immunization Date Immunization Notes Care Provider Fa cili 01-28-2024 Influenza, injectabl e, Madin Nevaeh Canine Kidney, preservative free, quadrivalent Adelaida Aichholz [employer] Work Phone: [facility] 01-28-2024 influenza virus vaccine, unspecified formulation Adelaida Aichholz [employer] Work Phone: [facility] 08-17-2023 zoster vaccine recombinant Adelaida Aichholz [employer] Work Phone: [facility] 02-13-2023 influenza, injectabl e, quadrivalent, preservative free Adelaida Aichholz [employer] Work Phone: [facility] 02-13-2023 SARS-COV-2 (COVID-19 ) vaccine, mRNA, spike protein, LNP, PF, 50 mcg/0.5 mL Adelaida Aichholz [employer] Work Phone: [facility] 02-13-2023 influenza virus vaccine, unspecified formulation Adelaida Aichholz [employer] Work Phone: [facility] 02-19-2022 diphtheria, tetanus toxoids and pertussis vaccine Adelaida Aichholz [employer] Work Phone: [facility] 03-02-2021 Moderna SARS-CoV-2 Vaccination Adelaida Aichholz [employer] Work Phone: [facility] 08-24-2020 Moderna SARS-CoV-2 Vaccination Adelaida Aichholz [employer] Work Phone: [facility] 07-27-2020 Moderna SARS-CoV-2 Vaccination Adelaida Aichholz [employer] Work Phone: [facility] 05-28-2018 influenza, injectabl e, quadrivalent, preservative free Adelaida Yingmarquesholz Work Phone: [facility] 2017 pneumococcal conjuga te vaccine, 13 valent Adelaida Merryholz [employer] Work Phone: [facility] Payers Date Payer Category Payer Medicare [id number] 2022 Self-pay [id number] 2022 Medicare [id number] 2022 Medicare (Managed Care) [facility]IC[facility] [id number] 2008 Unknown [id number] 1961 Unknown [id number] 2.16.840.1.157413.3.579.2 .647 1961 Unknown [id number] 2.16.840.1.604141.3.579.2 .593 1961 Unknown [id number] 2.16.840.1.041580.3.579.2 .593 1961 Unknown [id number] 2.16.840.1.542168.3.579.2 .593 1961 Unknown [id number] 2.16.840.1.209369.3.579.2 .593 1961 Unknown [id number] 2.16.840.1.714614.3.579.2 .593 1961 Unknown [id number] 2.16.840.1.215310.3.579.2 .593 1961 Unknown [id number] 2.16.840.1.363458.3.579.2 .593 1961 Unknown [id number] 2.16.840.1.138064.3.579.2 .593 1961 Unknown [id number] 2.16.840.1.344161.3.579.2 .593 1961 Unknown [id number] 2.16.840.1.873514.3.579.2 .593 1961 Unknown [id number] 2.16.840.1.170646.3.579.2 .593 1961 Unknown [id number] 2.16.840.1.129936.3.579.2 .593 1961 Unknown [id number] 2.16.840.1.912212.3.579.2 .593 1961 Unknown [id number] 2.16.840.1.532444.3.579.2 .593 1961 Unknown [id number] 2.16.840.1.270438.3.579.2 .593 1961 Unknown [id number] 2.16.840.1.905390.3.579.2 .593 1961 Unknown [id number] 2.16.840.1.941056.3.579.2 .593 1961 Unknown [id number] 2.16.840.1.539148.3.579.2 .593 1961 Unknown [id number] 2.16.840.1.804587.3.579.2 .593 1961 Unknown [id number] 2.16.840.1.344948.3.579.2 .593 1961 Unknown [id number] 2.16.840.1.029884.3.579.2 .593 1961 Unknown [id number] 2.16.840.1.884101.3.579.2 .593 1961 Unknown [id number] 2.16.840.1.086153.3.579.2 .593 1961 Unknown [id number] 2.16.840.1.941706.3.579.2 .593 1961 Unknown [id number] 2.16.840.1.578062.3.579.2 .1286 1961 Unknown [id number] 2.16.840.1.570984.3.579.2 .196 1961 Unknown [id number] 2.16.840.1.300160.3.579.2 .196 1961 Unknown [id number] 2.16.840.1.126967.3.579.2 .196 1961 Unknown [id number] 2.16.840.1.476324.3.579.2 .196 1961 Unknown [id number] 2.16.840.1.586848.3.579.2 .196 1961 Unknown [id number] 2.16.840.1.043309.3.579.2 .196 1961 Unknown [id number] 2.16.840.1.649876.3.579.2 .196 1961 Unknown [id number] 2.16.840.1.065868.3.579.2 .1259 1961 Unknown [id number] 2.16.840.1.889108.3.579.2 .1259 1961 Unknown [id number] 2.16.840.1.634595.3.579.2 .1258 1961 Unknown [id number] 2.16.840.1.351481.3.579.2 .1258 1961 Unknown [id number] 2.16.840.1.887617.3.579.2 .1258 1961 Unknown [id number] 2.16.840.1.924749.3.579.2 .1258 1961 Unknown [id number] 2.16.840.1.714729.3.579.2 .1258 1961 Unknown [id number] 2.16.840.1.797508.3.579.2 .1258 1961 Unknown [id number] 2.16.840.1.658222.3.579.2 .1258 1961 Unknown [id number] 2.16.840.1.829177.3.579.2 .1258 1961 Unknown [id number] 2.16.840.1.442499.3.579.2 .1258 1961 Unknown [id number] 2.16.840.1.103880.3.579.2 .1258 1961 Unknown [id number] 2.16.840.1.915542.3.579.2 .1258 1961 Unknown [id number] 2.16.840.1.139712.3.579.2 .1258 1961 Unknown [id number] 2.16.840.1.496153.3.579.2 .1258 1961 Unknown [id number] 2.16.840.1.120821.3.579.2 .1258 1961 Unknown [id number] 2.16.840.1.937638.3.579.2 .1258 1961 Unknown [id number] 2.16.840.1.869542.3.579.2 .1259 1961 Unknown [id number] 2.16.840.1.761965.3.579.2 .1259 1959 Medicare [id number] 1959 Unknown [id number] Private Health Insurance [facility] [id number] Unknown [id number] 2.16.840.1.618842.3.579.2 .531 Unknown [id number] 2.16.840.1.027474.3.579.2 .531 Social History Date Type Detail Facility Start: 11-18-2022 End: 10-14-2023 Tobacco smoking status GAIS Ex-smoker (finding) [facility] Start: 1960 Sex Assigned At Female [facility] Start: 03-25-2023 End: 08-16-2023 Sex Assigned At [facility] Start: 04-06-1976 End: 04-06-2016 History of tobacco use Current smoker [facility] Start: 04-06-1976 End: 04-06-2016 History of tobacco use Cigarette Smoker [facility] Start: 02-09-2023 End: 08-16-2023 Cigarettes smoked current (pack per day) - Reported 1 [facility] Start: 02-09-2023 End: 10-14-2023 Tobacco use and exposure Smokeless tobacco non-user [facility] Start: 05-18-2023 End: 11-14-2024 Alcohol intake Lifetime non-drinker (finding) [facility] Start: 11-13-2022 Alcohol Comment caffeine intake: 1-2 cups per day. [facility] Start: 10-01-2022 Gender identity Identifies as female gender (finding) [facility] Start: 10-01-2022 Sexual orientation [...] at Baseline [facility] Work Phone: Mental Status Date Assessment Result Facility 11-20-2022 Cognitive function Cognitive Sta tus Patient is Progressing Toward Baseline [facility] Work Phone: Clinical Notes 10-03-2021 to 11-14-2024 Adelaida Carrion NP - 11/14/2024 10:30 AM Padmaja Carrion NP - 11/14/2024 6:38 AM Padmaja Carrion NP - 11/14/2024 6:38 AM Padmaja Carrion NP - 11/14/2024 6:37 AM EDTPatient Instructions Note Date & Type Note Facility 11-14-2024 History of Present illness Narrative Images from [...] uses abstinence for contraception. She is postmenopausal. 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 OBJECTIVE: Visit Vitals BP 124/84 (BP Location: Left arm, Patient Position: Sitting, BP Cuff Size: Large adult) Pulse 70 Temp 97.8 F (Temporal) Resp 20 Wt 277 lb 6.4 oz SpO2 98% BMI 47.62 kg/m Smoking Status Former BSA 2.39 m Physical Exam Vitals and nursing note reviewed. Exam conducted with a training designer present. Constitutional: General: She is not in [...] Morbid (severe) obesity due to excess calories ([facility]) - Primary Discussed with patient their BMI [...] urine ratio Chronic kidney disease, stage 3a (CMS-HCC) Monitor labs at minimum every year Relevant Orders Comprehensive metabolic panel Vitamin D 25 hydroxy Associated Problem(s): Chronic kidney disease, stage 3a (CMS-HCC) Monitor labs at minimum every year Associated Problem(s): Osteoporosis DEXA: 10/17/24 osteopenia -1.7 FA Associated Problem(s): Bilateral lower extremity edema Stable with current dose of aldactone 50mg daily Associated Problem(s): Primary hypertension Please check blood pressure daily and record DASH diet Limit caffeine Take medication as directed Contact office if chest pain, pressure, dizziness, shortness of breath, swelling legs Recommend slow position changes Current meds: amlodipine, losartan, aldactone Associated Problem(s): Well woman exam with routine gynecological exam THIN PREP, fu as per PAP results indicate Monthly BSE Calcium/vit D supplement unless chronic conditions indicate not Exercise as chronic conditions allow Associated Problem(s): Morbid (severe) obesity due to excess calories ([facility]) Discussed with patient their BMI (actual, verses recommended). We have also discussed lifestyle modifications: attempts to perform physical activity as chronic conditions allow, also to monitor dietary intake: increasing protein/fruits/veggies and lowering carb intake (unless contraindicated). Limit sodas, juices, and sugary drinks. Has had bariatric surgeries in the past documented in this encounter [facility] 10-27-2024 History of Present illness Narrative Images from the original note were not included. Michelle Be is a 63 y.o. female presents with chief complaint of right knee pain. HPI: Michelle is a 63-year-old white female with a fairly complicated history regarding her knee. She has been do multiple other orthopedic surgeons, the last of which was Dr. Díaz in 2022 with apparent recommendation for total knee arthroplasty. She states she was told that she needed to get her teeth addressed first. She states she has finally saved up enough funds to do so and she does have that scheduled. She describes this as being cavities . She does have a history of spontaneous avascular necrosis about the knee versus a nonhealing fracture of her patella. She ended up having surgery. She then had a fall after surgery, broke her patella. She had further surgery. She has had pain over the years. She has had corticosteroid. She has had Visco supplementation. She has had the usual treatment for osteoarthritis of significance. SUBJECTIVE: MEDICATIONS: Current Outpatient Medications Medication Instructions amLODIPine (NORVASC) 10 mg, Oral, Daily biotin 5 MG tablet Pt taking OTC (EverTune) Calcium Citrate-Vitamin D (CITRACAL + D PO) Pt taking OTC (Trendient) Cannabinoids (medical cannabis) 1 each carvedilol (COREG) 12.5 mg, Oral, 2 times daily with meals DULoxetine (CYMBALTA) 60 mg, 2 times daily fexofenadine (NAIDA) 180 mg, Oral, Daily fluticasone (Flonase) 50 MCG/ACT nasal spray 2 sprays, Each Nostril, Daily gabapentin (NEURONTIN) 300 mg, Oral, 2 times daily, Due now Iron-Vitamin C (IRON 100/C PO) Take by mouth LORazepam (Ativan) 1 MG tablet TAKE 1 TABLET BY MOUTH once a week NEEDED for acute or severe anxiety losartan (COZAAR) 100 mg, Oral, Daily Magnesium 400 MG capsule Pt taking OTC([employer]) Melatonin 12 MG tablet 1 tablet, Nightly Multiple Vitamins-Minerals (BARIATRIC MULTIVITAMINS/IRON PO) Pt taking OTC (EverTune) omeprazole (PRILOSEC) 20 mg, Oral, Daily before [...] Dressing Adhesive Rash and Unknown Other Other SURGICAL HISTORY: Past Surgical History: Procedure Laterality Date APPENDECTOMY BREAST LUMPECTOMY Right SECTION, LOW TRANSVERSE x2 CHOLECYSTECTOMY COLONOSCOPY 2012 DENTAL IMPLANT DILATION AND CURETTAGE OF UTERUS x2 HIATAL HERNIA REPAIR KNEE SURGERY Right 2018 x2 LAMINECTOMY L4/L5 LAPAROSCOPIC GASTRIC BANDING 2008 LUMBAR LAMINECTOMY 1995 OTHER SURGICAL HISTORY hair follicle from scalp TONSILLECTOMY WISDOM TOOTH EXTRACTION WRIST SURGERY Left 10/31/2022 1ST DORSAL COMPARTMENT RELEASE FAMILY HISTORY: Family History Problem Relation Name Age of Onset Diabetes Mother Gwen Gonzalez Other (Spinal Meningitis) Mother Gwen Gonzalez Kidney failure Mother Gwen Gonzalez Depression Mother Gwen Gonzalez Neuropathy Mother Gwen Gonzalez Hyperlipidemia Father Arthritis Father Hypertension Father Dementia Father Heart disease Father Diabetes Maternal Grandmother SOCIAL HISTORY: Social History Tobacco Use Smoking status: Former Current packs/day: 0.00 Average packs/day: 1 pack/day for 40.0 years (40.0 ttl pk-yrs) Types: Cigarettes Start date: 1976 Quit date: 2016 Years since quittin.5 Smokeless tobacco: Never Substance Use Topics Alcohol use: Never Comment: caffeine intake: 1-2 cups per day. Drug use: Never Depression: Not at risk (09/21/2023) PHQ-2 PHQ-2 Score: 2 REVIEW OF SYMPTOMS: The review of systems, history and current medications list are all reviewed today. OBJECTIVE: Visit Vitals Ht 5' 4 Wt 277 lb BMI 47.55 kg/m Smoking Status Former BSA 2.39 m Physical Exam Her orthopedic exam here today shows no gross malalignment or deformity about the knee. She is morbidly obese with a body mass index of 47. She does have an anterior incision on the knee, difficult to define for effusion. Tenderness is mainly medial, to a lesser extent lateral. She does have pain with both medial and lateral Chela testing. No click. A little bit of pain with patellar grind. Examination of the left knee reveals arc of motion without difficulty. Medial and lateral Chela testing is equivocal. Drawer testing is negative bilaterally. Maybe a little bit of patellar grind on the contralateral left side as well. Hips internal and external rotation is on the order of 40 degrees of each and without any pain. She has no defined trochanteric tenderness. Examination of the x-rays AP bilateral weight [...] Difficult to define what this procedure was. ASSESSMENT AND PLAN: Assessment/Plan Right knee osteoarthritis with pain, likely internal derangement in the form of meniscal tear, morbid obesity. The findings are discussed. We did explain that we would not offer total knee arthroplasty in this setting. We would work the knee up to define for the possibility of internal derangement and possible treatment of knee arthroscopy. We did discuss that if MRI does show significant cartilage defect, then the discussion would shift back to total knee arthroplasty. She has done a lot of research and feels that she would like to pursue robotic total knee if indicated. We did explain the robotic tool and the precision associated therein. We did pose the question as to whether she is comfortable working the knee up and getting updated information versus the desire for total knee arthroplasty. She feels comfortable with the former. Her last MRI was some two years ago. Unfortunately this information at present would no longer be valid. We will go ahead and update an MRI. This does appear to be clinically indicated and cost effective. We did discuss Tylenol and its dosing. This patient does have a high risk factor scenario with the modifiable risk factor of morbid obesity. We did explain that if she did come to the discussion of total knee arthroplasty, we would not offer that here with us and we did outline the reasoning why. She does voice understanding of this. Ultimately we will get the MRI and further recommendations to follow. All of her questions are otherwise answered this day. We will see her back after the study for review and decision making. She does voice understanding of this plan. Follow up letter sent to Adelaida Howard. Cosigned by Harrison Hoyos DO at 10/28/2024 12:11 PM EDT documented in this encounter [facility] 10-13-2024 History of Present illness Narrative Associated Problem(s): Primary hypertension Please check blood pressure daily and record DASH diet Limit caffeine Take medication as directed Contact office if chest pain, pressure, dizziness, shortness of breath, swelling legs Recommend slow position changes Current meds: amlodipine, losartan, aldactone Associated Problem(s): OSMANY (obstructive sleep apnea) You [...] that supplies your machine and tubing/filters etc: [facility] Doctor that manages your OSMANY: Daniela Associated Problem(s): Disorientation Markesan to be related to not using PAP I have reviewed hospital and ER notes Sxs have resolved She is going to be having MRI out pt Continue fu with neuro Wear PAP Images from the original note were not included. Michelle Be is a 63 y.o. female presents with chief complaint of Hospital Follow-up HPI: Here for hospital follow up: Er 10/07/24 altered mental status was fine throughout the day, confusion started in 6-7pm that night. Was having some trouble finding the right words, no weakness on either side of body, no vision changes, no SMART up to hospital room about 5am, telemed in the afternoon Is going to have out patient MRI . Markesan that she had some encephalopathy with not wearing PAP She is now wearing her pap. Is back to her baseline able to remember words etc. No weakness no dizziness noted either Follows with Juany Rascon NP SUBJECTIVE: MEDICATIONS: Current Outpatient Medications Medication Instructions amLODIPine (NORVASC) 10 mg, Oral, Daily biotin 5 MG tablet Pt taking OTC (EverTune) Calcium Citrate-Vitamin D (CITRACAL + D PO) Pt taking OTC (Trendient) carvedilol (COREG) 12.5 mg, Oral, 2 times [...] Daily Magnesium 400 MG capsule Pt taking OTC([employer]) Melatonin 12 MG tablet 1 tablet, Nightly Multiple Vitamins-Minerals (BARIATRIC MULTIVITAMINS/IRON PO) Pt taking OTC (EverTune) omeprazole (PRILOSEC) 20 mg, Oral, Daily before [...] and neck pain. Negative for joint swelling and myalgias. [...] S/P bariatric surgery Shingles Slurred speech Stroke ([facility]) 2018 Tenosynovitis, de Quervain Thoracic [...] Size: Large adult) Pulse 85 Temp 98.5 F (Temporal) Resp 20 Wt 284 lb SpO2 95% BMI 48.75 kg/m Smoking Status Former BSA [...] meds: amlodipine, losartan, aldactone Disorientation - Primary Markesan to be related to not using PAP [...] MG DR capsule documented in this encounter [facility] 08-16-2024 History of Present illness Narrative Associated [...] biotin 5 MG tablet Pt taking OTC (EverTune) Calcium Citrate-Vitamin D (CITRACAL + D PO) Pt taking OTC (Trendient) carvedilol (COREG) 12.5 mg, Oral, 2 times daily with meals cetirizine (ZYRTEC) 10 mg, Oral, Daily diclofenac (Voltaren) 50 MG EC tablet DULoxetine (CYMBALTA) 60 mg, 2 times daily fluticasone (Flonase) 50 MCG/ACT nasal spray 2 sprays, Each Nostril, Daily gabapentin (NEURONTIN) 300 mg, Oral, 2 times daily, Due now losartan (COZAAR) 100 mg, Oral, Daily Magnesium 400 MG capsule Pt taking OTC([facility]) Melatonin 12 MG tablet 1 tablet, Nightly Multiple Vitamins-Minerals (BARIATRIC MULTIVITAMINS/IRON PO) Pt taking OTC ([facility]) omeprazole (PRILOSEC) 20 mg, Oral, [...] Anxiety 05/18/2023 Bipolar disorder with severe depression ([facility]) 05/18/2023 Brain lesion Brain vascular malformation Chronic pain disorder Closed fracture of patella 02/04/2018 Colon polyps Constipation Degenerative cervical disc Degenerative lumbar disc Depression ([facility]) 05/18/2023 Diastolic dysfunction Dizziness 05/18/2023 Dysphagia Fibromyalgia Fibromyalgia Gastrocnemius equinus GERD (gastroesophageal reflux disease) Heart murmur Hematoma of right breast Hemiparesis ([facility]) Hemiparesis, right ([facility]) Hemorrhoid int/external hemorrhoids Hiatal hernia Iron deficiency Left foot pain 03/25/2023 Lower extremity edema Mood disorder ([facility]) mixed mood disorder OSMANY (obstructive sleep apnea) Osteoporosis ([facility]) Overactive bladder Pre-diabetes Primary hypertension ([facility]) 03/25/2023 PTSD (post-traumatic stress disorder) ([facility]) Restless leg Right knee pain Right sided weakness S/P bariatric surgery Shingles Slurred speech Stroke ([facility]) 2018 Tenosynovitis, de Quervain Thoracic [...] trelegy 100's resolved documented in this encounter [facility] 08-16-2024 Instructions Adelaida Carrion NP - 08/16/2024 11:30 AM EDT Mammogram and lung cancer CT documented in this encounter [facility] 07-27-2024 History of Present illness Narrative Associated Problem(s): Bronchitis Continue OTC mucus relief meds Will add trelegy for bronchitis 100's #2 samples lot [id number], exp 10/28 Fu if not better No s/s resp distress [facility] ER- 07/24/24 Bronchitis & Leurisy Medications: [...] with chief complaint of Hospital Follow-up HPI: [facility] ER- 07/24/24 Bronchitis & Leurisy Medications: [...] biotin 5 MG tablet Pt taking OTC (EverTune) Calcium Citrate-Vitamin D (CITRACAL + D PO) Pt taking OTC (Trendient) carvedilol (COREG) 12.5 mg, Oral, 2 times daily with meals cetirizine (ZYRTEC) 10 mg, Oral, Daily diclofenac (Voltaren) 50 MG EC tablet DULoxetine (CYMBALTA) 60 mg, 2 times daily fluticasone (Flonase) 50 MCG/ACT nasal spray 2 sprays, Each Nostril, Daily gabapentin (NEURONTIN) 300 mg, Oral, 2 times daily, Due now losartan (COZAAR) 100 mg, Oral, Daily Magnesium 400 MG capsule Pt taking OTC([employer]) Melatonin 12 MG tablet 1 tablet, Nightly Multiple Vitamins-Minerals (BARIATRIC MULTIVITAMINS/IRON PO) Pt taking OTC (EverTune) omeprazole (PRILOSEC) 20 mg, Oral, Daily before [...] Anxiety 05/18/2023 Bipolar disorder with severe depression ([facility]) 05/18/2023 Brain lesion Brain vascular malformation Chronic pain disorder Closed fracture of patella 02/04/2018 Colon polyps Constipation Degenerative cervical disc Degenerative lumbar disc Depression ([facility]) 05/18/2023 Diastolic dysfunction Dizziness 05/18/2023 Dysphagia Fibromyalgia Fibromyalgia Gastrocnemius equinus GERD (gastroesophageal reflux disease) Heart murmur Hematoma of right breast Hemiparesis ([facility]) Hemiparesis, right ([facility]) Hemorrhoid int/external hemorrhoids Hiatal hernia Iron deficiency Left foot pain 03/25/2023 Lower extremity edema Mood disorder ([facility]) mixed mood disorder OSMANY (obstructive sleep apnea) Osteoporosis ([facility]) Overactive bladder Pre-diabetes Primary hypertension ([facility]) 03/25/2023 PTSD (post-traumatic stress disorder) ([facility]) Restless leg Right knee pain [...] meds: amlodipine, losartan documented in this encounter [facility] 07-26-2024 History of Present illness Narrative Images from the original note were not included. Subjective Chief Complaint Patient presents with Altered Mental Status Past Medical History: Diagnosis Date Abnormal mammogram of left breast Achilles tendinitis, right leg Acute gout of right foot, unspecified cause Allergic rhinitis 05/18/2023 Anemia Anxiety 05/18/2023 Bipolar disorder with severe depression ([facility]) 05/18/2023 Brain lesion Brain vascular malformation [...] hypertension (CMS/HCC) 03/25/2023 PTSD (post-traumatic stress disorder) (CMS/[facility]) Restless leg Right knee pain Right sided weakness S/P bariatric surgery Shingles Slurred speech Stroke (CMS/[facility]) 2018 Tenosynovitis, de Quervain Thoracic [...] Review Audit Reviewed by Beronica Reyes MA (Narcotics Detective) on 07/26/24 at 1049 Medication Order Taking? Sig Documenting Provider Last Dose Status amLODIPine (Norvasc) 10 MG tablet [id number] Take 1 tablet (10 mg) by mouth Daily Adelaida Carrion NP 06/11/242358 azithromycin (Zithromax) 250 MG tablet [id number] Day #1: 2 tablets, and Day 2-5: 1 tablet daily Adelaida Carrion NP Active biotin 5 MG tablet [id number] Pt taking OTC (EverTune) Historical Provider, Active Calcium Citrate-Vitamin D (CITRACAL + D PO) [id number] Pt taking OTC (Trendient) Historical Provider, Active carvedilol (Coreg) 12.5 MG tablet [id number] Take 1 tablet (12.5 mg) by mouth in the morning and 1 tablet (12.5 mg) in the evening. Take with meals. Adelaida Carrion NP 06/11/24 235 cetirizine (ZyrTEC) 10 MG tablet [id number] Take 1 tablet (10 mg) by mouth Daily Adelaida Carrion NP 06/11/24 235 DULoxetine (Cymbalta) [address] capsule [id number] Take 60 mg by mouth in the morning and 60 mg before bedtime. Do not crush or chew.. Active fluticasone (Flonase) 50 MCG/ACT nasal spray [id number] Administer 2 sprays into each nostril Daily Adelaida Carrion NP 06/11/242358 gabapentin (Neurontin) 300 MG capsule [id number] Take 1 capsule (300 mg) by mouth in the morning and 1 capsule (300 mg) before bedtime. Due now. MAUREEN Akbar Active losartan (Cozaar) 100 MG tablet [id number] Take 1 tablet (100 mg) by mouth Daily Adelaida Carrion NP 06/11/24 235 Magnesium 400 MG capsule [id number] Pt taking OTC([employer]) Historical ProviderMD Active Melatonin 12 MG tablet [id number] Take 1 tablet by mouth at bedtime Active Multiple Vitamins-Minerals (BARIATRIC MULTIVITAMINS/IRON PO) [id number] Pt taking OTC (EverTune) Historical ProviderMD Active nystatin (Mycostatin) [id number] UNIT/GM powder [id number] Apply 1 application topically in the morning and 1 application before bedtime. Adelaida Carrion NP Active nystatin (Mycostatin) cream [id number] Adelaida Carrion NP Active omeprazole (PriLOSEC) [address] capsule [id number] Take 1 capsule (20 mg) by mouth in the morning. Take before meals. Adelaida Carrion NP 06/11/242358 rOPINIRole (Requip) 2 MG tablet [id number] Take 1 tablet (2 mg) by mouth at bedtime MAUREEN Akbar Active spironolactone (Aldactone) 50 MG tablet [id number] Take 1 tablet (50 mg) by mouth Daily Adelaida Carrion NP 06/11/24 235 tiZANidine (Zanaflex) 4 MG tablet [id number] Take 4 mg by mouth every 8 (eight) hours if needed for muscle spasms 1-2 tablets Adelaida Carrion NP Active traZODone (Desyrel) 150 MG tablet [id number] Take 150 mg by mouth at bedtime Active Vraylar 3 MG capsule [id number] Active HPI AMS -weaned Lacosimide -denies any further headaches and dizziness -denies any recent episodes of confusion -trouble with short and usp memory -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 LUE Strength deltoid, biceps, triceps, wrist extensors, wrist extensors, wrist flexor, telephone advice nurse strength 5/5. RLE Strength illopsoas, quadriceps, tibialis [...] not all inclusive. Patient was admitted to [facility] from the [facility] on 08/24/2023 with acute respiratory failure and confusion thought to be secondary to metabolic encephalopathy. MOCA 03/01/24 was 26/30. She notes she did speech therapy and responded well to this. She was recently evaluated at [facility] 03/02/2024 for severe encephalopathy. She had brain [...] Averages almost 6 hours a night. ___ [facility] evaluation 02/29/2024: Brain MRI with and without [...] of the brain in July 2019 showed [id number] white matter changes with the largest area [...] in 2 months documented in this encounter [facility] 05-12-2024 History of Present illness Narrative [...] includes CVA. There is no history of CAD/OH, heart failure or PVD. GERD She reports [...] biotin 5 MG tablet Pt taking OTC (EverTune) Calcium Citrate-Vitamin D (CITRACAL + D PO) Pt taking OTC (T[employer]ient) carvedilol (COREG) 12.5 mg, Oral, 2 times [...] Daily Magnesium 400 MG capsule Pt taking OTC([employer]) Melatonin 12 MG tablet 1 tablet, Nightly Multiple Vitamins-Minerals (BARIATRIC MULTIVITAMINS/IRON PO) Pt taking OTC (EverTune) nystatin (Mycostatin) [id number] UNIT/GM powder 1 application , 2 times [...] Anxiety 05/18/2023 Bipolar disorder with severe depression ([facility]) 05/18/2023 Brain lesion Brain vascular malformation Chronic pain disorder Closed fracture of patella 02/04/2018 Colon polyps Constipation Degenerative cervical disc Degenerative lumbar disc Depression ([facility]) 05/18/2023 Diastolic dysfunction Dizziness 05/18/2023 Dysphagia Fibromyalgia Fibromyalgia Gastrocnemius equinus GERD (gastroesophageal reflux disease) Heart murmur Hematoma of right breast Hemiparesis ([facility]) Hemiparesis, right ([facility]) Hemorrhoid int/external hemorrhoids Hiatal hernia Iron deficiency Left foot pain 03/25/2023 Lower extremity edema Mood disorder ([facility]) mixed mood disorder OSMANY (obstructive sleep apnea) Osteoporosis ([facility]) Overactive bladder Pre-diabetes Primary hypertension ([facility]) 03/25/2023 PTSD (post-traumatic stress disorder) ([facility]) Restless leg Right knee pain Right sided weakness S/P bariatric surgery Shingles Slurred speech Stroke ([facility]) 2018 Tenosynovitis, de Quervain Thoracic [...] that manages your OSMANY: Daniela Hemiparesis, right ([facility]/HCC) Stable with this from prior stroke GERD [...] losartan Chronic kidney disease, stage 3a (HCC) (CMS/[facility]) Monitor labs at minimum every year Body mass index (BMI) 45.0-49.9, adult ([facility]) Other Visit Diagnoses Essential (primary) hypertension (CMS/HCC) [...] Current meds: omeprazole Associated Problem(s): Primary hypertension ([facility]/HCC) Please check blood pressure daily and record [...] that supplies your machine and tubing/filters etc: [facility] Doctor that manages your OSMANY: Daniela Associated Problem(s): Hemiparesis, right (CMS/HCC) Stable with this from prior stroke documented in this encounter [facility] 05-12-2024 Instructions Adelaida Carrion NP - 05/12/2024 10:00 AM EST No changes in meds documented in this encounter [facility] 04-12-2024 Telephone encounter Note 03/10/2024 Continue Gabapentin 300 mg BID for RLS. Continue clonazepam 0.5mg PO BID for RLS. This was decreased during recent hospitalization Continue Vimpat 50mg PO BID for seizure prevention [facility] 04-12-2024 Miscellaneous Notes 03/10/2024 Continue Gabapentin 300 mg BID for RLS. Continue clonazepam 0.5mg PO BID for RLS. This was decreased during recent hospitalization Continue Vimpat 50mg PO BID for seizure prevention documented in this encounter [facility] 04-07-2024 History of Present illness [...] performance and score on it. Admitted to [facility] from the [facility] on 08/24/2023 with acute respiratory failure and confusion thought to be secondary to metabolic encephalopathy. LTME in August 2023 negative. Recently evaluated at [facility] on 03/02/2024 for severe encephalopathy. Brain MRI [...] any history of alcohol/substance abuse. Reformed smoker. [place] language Japanese. Reported relocating from [place] to [place] in 2011. Completed a bachelor's degree. 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 Currently on disability. Resides with of 26 years along with her son, grandson, and 2 dogs. Has 2 children from a prior relationship. MEDICAL HISTORY/MEDICATION: MEDICATIONS: Current Outpatient Medications Medication Instructions amLODIPine (NORVASC) 10 mg, Oral, Daily biotin 5 MG tablet Pt taking OTC (EverTune) Calcium Citrate-Vitamin D (CITRACAL + D PO) Pt taking OTC ([employer]) carvedilol (COREG) 12.5 mg, Oral, 2 times [...] Daily Magnesium 400 MG capsule Pt taking OTCHowGood) Melatonin 12 MG tablet 1 tablet, Oral, Nightly Multiple Vitamins-Minerals (BARIATRIC MULTIVITAMINS/IRON PO) Pt taking OTC (EverT[employer]) nystatin (Mycostatin) [id number] UNIT/GM powder 1 application , 2 times [...] design >16th %ile. Motor/Speed of Processing: Right-handed. [employer] Technician strength 16th %ile with right-hand, 38th %ile [...] Learning of a word list 79th %ile ([id number]), delayed recall 93rd %ile. Recognition discriminability 93rd [...] Please contact me with any questions at [phone]. documented in this encounter [facility] 03-16-2024 History of Present illness Narrative Associated Problem(s): Right bundle branch block (RBBB) determined by electrocardiography At this point I will look at her past EKG's, She has had ECHO in past No symptoms, at this time I do not think that further testing is needed Pt is having a memory test done on apr 07 in [place] Pt is anxious and afraid-pt father had dementia Spironolactone pt is asking for 50mg instead of 25mg Images from the original note were not included. Michelle Be is a 63 y.o. 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) carvedilol (COREG) 12.5 mg, Oral, 2 times [...] Daily Magnesium 400 MG capsule Pt taking OTCHowGood) Melatonin 12 MG tablet 1 tablet, Oral, Nightly Multiple Vitamins-Minerals (BARIATRIC MULTIVITAMINS/IRON PO) Pt taking OTC (EverTune) nystatin (Mycostatin) 723189 UNIT/GM powder 1 application , 2 times [...] Anxiety 05/18/2023 Bipolar disorder with severe depression ([facility]) 05/18/2023 Brain lesion Brain vascular malformation Chronic pain disorder Closed fracture of patella 02/04/2018 Colon polyps Constipation Degenerative cervical disc Degenerative lumbar disc Depression ([facility]) 05/18/2023 Diastolic dysfunction Dizziness 05/18/2023 Dysphagia Fibromyalgia Fibromyalgia Gastrocnemius equinus GERD (gastroesophageal reflux disease) Heart murmur Hematoma of right breast Hemiparesis ([facility]) Hemiparesis, right ([facility]) Hemorrhoid int/external hemorrhoids Hiatal hernia Iron deficiency Left foot pain 03/25/2023 Lower extremity edema Mood disorder ([facility]) mixed mood disorder OSMANY (obstructive sleep apnea) Osteoporosis ([facility]) Overactive bladder Pre-diabetes Primary hypertension ([facility]) 03/25/2023 PTSD (post-traumatic stress disorder) ([facility]) Restless leg Right knee pain Right sided weakness S/P bariatric surgery Shingles Slurred speech Stroke ([facility]) 2018 Tenosynovitis, de Quervain Thoracic [...] to have evaluation documented in this encounter [facility] 03-16-2024 Instructions Adelaida Carrion NP - 03/16/2024 10:00 AM EST Spironolactone: I discontinued the 25mg script for this, sent a new script to [facility], for a 50mg pill, you will take 1 pill daily Memory testing in Apr 2024 Follow up with me in early May, sooner if needed documented in this encounter [facility] 03-16-2024 Telephone encounter Note Yep, sent to [facility]. [facility] 03-16-2024 Miscellaneous Notes Yep, sent to [employer]. Patient calls and states that hospital lowered her requip to 2 mg at bed time. Okay to send as new dosage? documented in this encounter [facility] 03-15-2024 Telephone encounter Note Patient calls and states that hospital lowered her requip to 2 mg at bed time. Okay to send as new dosage? [facility] 03-14-2024 History of Present illness [...] performance and score on it. Admitted to [facility] from the [facility] on 08/24/2023 with acute respiratory failure and confusion thought to be secondary to metabolic encephalopathy. Previous LTME in August 2023 negative. Recently evaluated at [facility] on 03/02/2024 for severe encephalopathy. Brain MRI [...] any history of alcohol/substance abuse. Reformed smoker. [place] language Japanese. Reported relocating from [place] to [place] in 2011. Completed a bachelors [...] apnea) Osteoporosis ([facility]) Overactive bladder Pre-diabetes Primary hypertension ([facility]) 03/25/2023 PTSD (post-traumatic stress disorder) ([facility]) Restless leg Right knee pain Right sided weakness S/P bariatric surgery Shingles Slurred speech Stroke ([facility]) 2018 Tenosynovitis, de Quervain Thoracic back pain, unspecified back pain laterality, unspecified chronicity Tobacco dependence Vertigo, benign paroxysmal Yeast infection of the skin 05/18/2023 MEDICATIONS: Current Outpatient Medications Medication Instructions amLODIPine (NORVASC) 10 mg, Oral, Daily biotin 5 MG tablet Pt taking OTC (EverTune) Calcium Citrate-Vitamin D (CITRACAL + D PO) Pt taking OTC [email or web address]) carvedilol (COREG) 12.5 mg, Oral, 2 times [...] Daily Magnesium 400 MG capsule Pt taking OTCHowGood) Melatonin 12 MG tablet 1 tablet, Oral, Nightly Multiple Vitamins-Minerals (BARIATRIC MULTIVITAMINS/IRON PO) Pt taking OTC (EverTune) nystatin (Mycostatin) 221839 UNIT/GM powder 1 application , Topical, 2 [...] Please contact me with any questions at [phone]. documented in this encounter [facility] 02-16-2024 History of Present illness [...] biotin 5 MG tablet Pt taking OTC (EverTune) Calcium Citrate-Vitamin D (CITRACAL + D PO) Pt taking OTC (T[employer]) carvedilol (COREG) 12.5 mg, Oral, 2 times [...] Daily Magnesium 400 MG capsule Pt taking OTC([employer]) Melatonin 12 MG tablet 1 tablet, Oral, Nightly Multiple Vitamins-Minerals (BARIATRIC MULTIVITAMINS/IRON PO) Pt taking OTC (EverTune) nystatin (Mycostatin) 159628 UNIT/GM powder 1 application , Topical, 2 [...] Anxiety 05/18/2023 Bipolar disorder with severe depression ([facility]) 05/18/2023 Brain lesion Brain vascular malformation Chronic pain disorder Closed fracture of patella 02/04/2018 Colon polyps Constipation Degenerative cervical disc Degenerative lumbar disc Depression ([facility]) 05/18/2023 Diastolic dysfunction Dizziness 05/18/2023 Dysphagia Fibromyalgia Fibromyalgia Gastrocnemius equinus GERD (gastroesophageal reflux disease) Heart murmur Hematoma of right breast Hemiparesis ([facility]) Hemiparesis, right ([facility]) Hemorrhoid int/external hemorrhoids Hiatal hernia Iron deficiency Left foot pain 03/25/2023 Lower extremity edema Mood disorder ([facility]) mixed mood disorder OSMANY (obstructive sleep apnea) Osteoporosis ([facility]) Overactive bladder Pre-diabetes Primary hypertension ([facility]) 03/25/2023 PTSD (post-traumatic stress disorder) ([facility]) Restless leg Right knee pain Right sided weakness S/P bariatric surgery Shingles Slurred speech Stroke ([facility]) 2018 Tenosynovitis, de Quervain Thoracic [...] nursing note reviewed. Exam conducted with a training designer present. Constitutional: General: She is not in [...] chronic conditions allow documented in this encounter [facility] 01-28-2024 History of Present illness [...] ER fu for UTI and dehydration. See [facility] for HPI Was sent home on Bactrim. Feels completely fine now, no fever, chills, malodorous urine, no constipation diarrhea or abd pain SUBJECTIVE: MEDICATIONS: Current Outpatient Medications Medication Instructions amLODIPine (NORVASC) 10 mg, Oral, Daily biotin 5 MG tablet Pt taking OTC (EverTune) Calcium Citrate-Vitamin D (CITRACAL + D PO) Pt taking OTC (T[employer]) carvedilol (COREG) 12.5 mg, Oral, 2 times [...] Daily Magnesium 400 MG capsule Pt taking OTC([employer]) Melatonin 12 MG tablet 1 tablet, Oral, Nightly Multiple Vitamins-Minerals (BARIATRIC MULTIVITAMINS/IRON PO) Pt taking OTC (EverTune) nystatin (Mycostatin) 307104 UNIT/GM powder 1 application , Topical, 2 [...] Anxiety 05/18/2023 Bipolar disorder with severe depression ([facility]) 05/18/2023 Brain lesion Brain vascular malformation Chronic pain disorder Closed fracture of patella 02/04/2018 Colon polyps Constipation Degenerative cervical disc Degenerative lumbar disc Depression (CMS/HCC) 05/18/2023 Diastolic dysfunction Dizziness 05/18/2023 Dysphagia Fibromyalgia Fibromyalgia Gastrocnemius equinus GERD (gastroesophageal reflux disease) Heart murmur Hematoma of right breast Hemiparesis ([facility]) Hemiparesis, right ([facility]) Hemorrhoid int/external hemorrhoids Hiatal hernia Iron deficiency Left foot pain 03/25/2023 Lower extremity edema Mood disorder ([facility]) mixed mood disorder OSMANY (obstructive sleep apnea) Osteoporosis ([facility]) Overactive bladder Pre-diabetes Primary hypertension ([facility]) 03/25/2023 PTSD (post-traumatic stress disorder) ([facility]) Restless leg Right knee pain Right sided weakness S/P bariatric surgery Shingles Slurred speech Stroke ([facility]) 2018 Tenosynovitis, de Quervain Thoracic [...] of the risks of continued smoking: stroke, OH, all forms of cancer, lung disease, and [...] Relevant Orders Flu vaccine, MDCK, quadrivalent, PF (DPE191) (Flucelvax single dose syringe) Associated Problem(s): Tobacco dependence The patient has been advised of the risks of continued smoking: stroke, OH, all forms of cancer, lung disease, and . Options for quitting smoking include: cold turkey, hypnosis, acupuncture, nicotine replacement meds (gum, lozenges, and patches), Buproprion, and Varenicline. At this time pt is encouraged to evaluate their goals for wanting to quit smoking, and reach out to provider when ready to start this process documented in this encounter [facility] 01-04-2024 History of Present illness [...] compliance problems. There is no history of CAD/OH, heart failure or PVD. Identifiable causes of hypertension include sleep apnea. SUBJECTIVE: MEDICATIONS: Current Outpatient Medications Medication Instructions amLODIPine (NORVASC) 10 mg, Oral, Daily biotin 5 MG tablet Pt taking OTC (EverTune) Calcium Citrate-Vitamin D (CITRACAL + D PO) Pt taking OTC (T[employer]ient) carvedilol (COREG) 12.5 mg, Oral, 2 times [...] Daily Magnesium 400 MG capsule Pt taking OTC([employer]) Melatonin 12 MG tablet 1 tablet, Oral, Nightly Multiple Vitamins-Minerals (BARIATRIC MULTIVITAMINS/IRON PO) Pt taking OTC (EverTune) nystatin (Mycostatin) 102001 UNIT/GM powder 1 application , Topical, 2 [...] Anxiety 05/18/2023 Bipolar disorder with severe depression ([facility]) 05/18/2023 Brain lesion Brain vascular malformation Chronic pain disorder Closed fracture of patella 02/04/2018 Colon polyps Constipation Degenerative cervical disc Degenerative lumbar disc Depression ([facility]) 05/18/2023 Diastolic dysfunction Dizziness 05/18/2023 Dysphagia Fibromyalgia Fibromyalgia Gastrocnemius equinus GERD (gastroesophageal reflux disease) Heart murmur Hematoma of right breast Hemiparesis ([facility]) Hemiparesis, right ([facility]) Hemorrhoid int/external hemorrhoids Hiatal hernia Iron deficiency Left foot pain 03/25/2023 Lower extremity edema Mood disorder ([facility]) mixed mood disorder OSMANY (obstructive sleep apnea) Osteoporosis ([facility]) Overactive bladder Pre-diabetes Primary hypertension ([facility]) 03/25/2023 PTSD (post-traumatic stress disorder) ([facility]) Restless leg Right knee pain [...] MCG/ACT nasal spray documented in this encounter [facility] 12-09-2023 History of Present illness [...] machine. She is normally seen at the [facility] and was last seen on [...] Anxiety 05/18/2023 Bipolar disorder with severe depression ([facility]) 05/18/2023 Brain lesion Brain vascular malformation Chronic pain disorder Closed fracture of patella 02/04/2018 Colon polyps Constipation Degenerative cervical disc Degenerative lumbar disc Depression (CMS/HCC) 05/18/2023 Diastolic dysfunction Dizziness 05/18/2023 Dysphagia Fibromyalgia Fibromyalgia Gastrocnemius equinus GERD (gastroesophageal reflux disease) Heart murmur Hematoma of right breast Hemiparesis ([facility]) Hemiparesis, right ([facility]) Hemorrhoid int/external hemorrhoids Hiatal hernia Iron deficiency Left foot pain 03/25/2023 Lower extremity edema Mood disorder ([facility]) mixed mood disorder OSMANY (obstructive sleep apnea) Osteoporosis ([facility]) Overactive bladder Pre-diabetes Primary hypertension ([facility]) 03/25/2023 PTSD (post-traumatic stress disorder) ([facility]) Restless leg Right knee pain Right sided weakness S/P bariatric surgery Shingles Slurred speech Stroke ([facility]) 2018 Tenosynovitis, de Quervain Thoracic [...] melatonin. She was last seen in [facility] on June 24, 2023. 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 She is compliant on her download [...] was counseled on the risks of stroke, OH, and sudden with OSMANY, along with the [...] clinic: one year documented in this encounter [facility] 12-08-2023 History of Present illness [...] Anxiety 05/18/2023 Bipolar disorder with severe depression ([facility]) 05/18/2023 Brain lesion Brain vascular malformation Chronic pain disorder Closed fracture of patella 02/04/2018 Colon polyps Constipation Degenerative cervical disc Degenerative lumbar disc Depression ([facility]) 05/18/2023 Diastolic dysfunction Dizziness 05/18/2023 Dysphagia Fibromyalgia Fibromyalgia Gastrocnemius equinus GERD (gastroesophageal reflux disease) Heart murmur Hematoma of right breast Hemiparesis ([facility]) Hemiparesis, right ([facility]) Hemorrhoid int/external hemorrhoids Hiatal hernia Iron deficiency Left foot pain 03/25/2023 Lower extremity edema Mood disorder ([facility]) mixed mood disorder OSMANY (obstructive sleep apnea) Osteoporosis ([facility]) Overactive bladder Pre-diabetes Primary hypertension ([facility]) 03/25/2023 PTSD (post-traumatic stress disorder) ([facility]) Restless leg Right knee pain Right sided weakness S/P bariatric surgery Shingles Slurred speech Stroke ([facility]) 2018 Tenosynovitis, de Quervain Thoracic [...] Review Audit Reviewed by Festus Baron MA (Narcotics Detective) on 12/08/23 at 1525 Medication Order Taking? Sig Documenting Provider Last Dose Status amLODIPine (Norvasc) 10 MG tablet [id number] Take 1 tablet (10 mg) by mouth Daily Adelaida Carrion NP Active biotin 5 MG tablet [id number] Pt taking OTC ([employer]) Historical Provider, MD Active Calcium Citrate-Vitamin D (CITRACAL + D PO) [id number] Pt taking OTC ([facility]) Historical ProviderMD Active Cariprazine HCl (Vraylar) 4.5 MG capsule [id number] Take 4.5 mg by mouth Daily Active carvedilol (Coreg) 12.5 MG tablet [id number] Take 1 tablet (12.5 mg) by mouth in the morning and 1 tablet (12.5 mg) in the evening. Take with meals. Adelaida Carrion NP Active cetirizine (ZyrTEC) 10 MG tablet [id number] Take 1 tablet (10 mg) by mouth Daily Adelaida Carrion NP Active clonazePAM (KlonoPIN) 1 MG tablet [id number] Take 1 tablet (1 mg) by mouth 2 (two) times a day as needed for anxiety Do not start before October 16, 2023. Sonam Brown NP 11/15/23 235 DULoxetine (Cymbalta) [address] capsule [id number] Take 60 mg by mouth in the morning and 60 mg before bedtime. Do not crush or chew.. Active fluconazole (Diflucan) 150 MG tablet [id number] 1 pill every 3 days for a total of 3 doses Adelaida Carrion NP Active fluticasone (Flonase) 50 MCG/ACT nasal spray [id number] Administer 2 sprays into each nostril Daily Adelaida Carrion NP 11/04/23 235 gabapentin (Neurontin) 300 MG capsule [id number] Take 1 capsule (300 mg) by mouth in the morning and 1 capsule (300 mg) before bedtime. Sonam Brown NP Active losartan (Cozaar) 100 MG tablet [id number] Take 1 tablet (100 mg) by mouth Daily Adelaida Carrion NP Active Magnesium 400 MG capsule [id number] Pt taking OTC([facility]) Historical ProviderMD Active Melatonin 12 MG tablet [id number] Take 1 tablet by mouth at bedtime Active Multiple Vitamins-Minerals (BARIATRIC MULTIVITAMINS/IRON PO) [id number] Pt taking OTC ([facility]) Historical ProviderMD Active nystatin (Mycostatin) 110031 UNIT/GM powder [id number] Apply 1 application topically in the morning and 1 application before bedtime. Adelaida Carrion NP Active omeprazole (PriLOSEC) [address] capsule [id number] Take 1 capsule (20 mg) by mouth in the morning. Take before meals. Adelaida Carrion CONICAL MIXER Active rOPINIRole (Requip) 4 MG tablet [id number] Take 1 tablet (4 mg) by mouth at bedtime Sonam Brown NP Active spironolactone (Aldactone) 25 MG tablet [id number] Take 2 tablets (50 mg) by mouth Daily Adelaidamonse Carrion NP Active tiZANidine (Zanaflex) 2 MG tablet [id number] Take 2 mg by mouth every 8 (eight) hours Adelaida Carrion NP Active traZODone (Desyrel) 150 MG tablet [id number] Take 150 mg by mouth at bedtime Active HPI AMS -Patient was admitted to [facility] from the [facility] on 08/24/2023 with acute respiratory failure and [...] ankle and great toe bilaterally. Coordination Right: Wxntpo-[id number] normal. Rapid alternating movement normal.Left: Apilxi-wt-rowv normal. Rapid alternating movement normal. Gait Casual gait is normal including stance, stride, and arm swing. Motor Examination RUE Strength deltoid, biceps, triceps, wrist extensors, wrist extensors, wrist flexor, telephone advice nurse strength 5/5. LUE Strength deltoid, biceps, triceps, wrist extensors, wrist extensors, wrist flexor, telephone advice nurse strength 5/5. RLE Strength illopsoas, quadriceps, tibialis [...] not all inclusive. Patient was admitted to [facility] from the [facility] on 08/24/2023 with acute respiratory failure and [...] of the brain in July 2019 showed [id number] white matter changes with the largest area [...] make further recommendations documented in this encounter [facility] 05-18-2023 History of Present illness [...] (BARIATRIC MULTIVITAMINS/IRON PO) Bariatric Multivitamins/Iron nystatin (Mycostatin) 229387 UNIT/GM powder 1 application , Topical, 2 [...] Anxiety 05/18/2023 Bipolar disorder with severe depression ([facility]) 05/18/2023 Brain vascular malformation Chronic pain disorder Colon polyps Constipation Degenerative cervical disc Degenerative lumbar disc Depression ([facility]) 05/18/2023 Diastolic dysfunction Dizziness 05/18/2023 Dysphagia Fibromyalgia Gastrocnemius equinus GERD (gastroesophageal reflux disease) Heart murmur Hematoma of right breast Hemiparesis, right ([facility]) Hemorrhoid int/external hemorrhoids Hiatal hernia Iron deficiency Left foot pain 03/25/2023 Lower extremity edema Mood disorder ([facility]) mixed mood disorder OSMANY (obstructive sleep apnea) Osteoporosis ([facility]) Overactive bladder Pre-diabetes Primary hypertension ([facility]) 03/25/2023 PTSD (post-traumatic stress disorder) ([facility]) Restless leg Right knee pain Right sided weakness S/P bariatric surgery Shingles Slurred speech Stroke ([facility]) 2018 Tenosynovitis, de Quervain Thoracic [...] yearly and prn documented in this encounter [facility] 03-23-[address] [facility] 12-19-2022 Evaluation note Encounter Date Diagnosis Assessment Notes Dec, Skin candidiasis (ICD-10 - B37.2) Drink plenty fluids, get plenty of rest. Continue home medications as prescribed. Take the Diflucan as prescribed until gone. Follow-up with your family physician if no improvement in 2 to 3 days [employer] Other 08-17-2023 Discharge summary Author Eduardo bautista [facility] November 20, 2022 6:38am Note Date/Time November 20, 2022 6: 38am [facility] [address] [place] [address] Discharge Summary Signed Patient: Michelle Be MR#: [id number] : 1960 Acct:[id number] Age/Sex: 61 / F Adm Date: 3 Loc: 1S Room: [address] [place] [address]: Gaudencio Monk MD Copies to: MD Adelaida Álvarez, [employer]-C~ Providers Date of Discharge: 11/20/22 Discharging Provider: [...] time.? She reports moving to [place] from [place] in 2011 and was then diagnosed with bipolar disorder at [facility] in [place], where she still follows with a therapist.? Shereports that she has been with 7 therapists in the last 9 years and is currentlycompleting EMDR with her current therapist. Past hospitalizations: Her most recent hospitalization was 5 years ago [facility] in [place] for the same feeling she is experiencing [...] fibromyalgia.? [facility]. Relationships: Reports having people [...] self or stop treatment, but to call [facility], 911 or come to the nearest emergency [...] Tablet 1 tab PO QID Follow Up: [facility] [Outside] 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 (insert date/time [...] Monk MD> 11/20/22 0638 [facility] Work Phone: 1(180) 792-425508-16-2023 Progress note Author Eduardo bautista [facility] November 19, 2022 6:25am Note Date/Time November 19, 2022 6: 25am [facility] [address] [place] [address] Psychiatry Progress Note Signed Patient: Michelle Be MR#: [id number] : 1960 Acct:[id number] Age/Sex: 61 / F Adm Date: 3 Loc: Room: [address] [place] [address] Type : ADM IN Attending Dr: Gaudencio [...] signed by Eduardo Monk MD> 11/19/22 0625 [facility] Work Phone: 1(968) 786-238708-15-2023 Progress note Author Eduardo bautista [facility] November 18, 2022 11:01am Note Date/Time November 18, 2022 10 :11am [facility] [address] [place] [address] Psychiatry Progress Note Signed Patient: Michelle Be MR#: [id number] : 1960 Acct:[id number] Age/Sex: 61 / F Adm Date: 3 Loc: Room: 2V0134-5 Type : ADM IN Attending Dr: Gaudencio [...] by requesting a schedule 2 referring to [facility] for pain management specifically every 4-6 hours [...] DA Rangel> 11/18/22 1011 [facility] Work Phone: 1(404) 611-158308-14-2023 History and physical note Author Eduardo bautista [facility] November 17, 2022 12:48pm Note Date/Time November 17, 2022 12 :48pm [facility] [address] [place] [address] Psychiatry H&P Signed Patient: Michelle Be MR#: [id number] : 1960 Acct:[id number] Age/Sex: 61 / F Adm Date: 3 Loc: Room: [address] [place] [address] Type: ADM IN Attending Dr: Gaudencio Monk [...] time. She reports moving to [place] from [place] in 2011 and was then diagnosed with bipolar disorder at [facility] in [place], where she still follows with a therapist. Shereports that she has been with 7 therapists in the last 9 years and is currentlycompleting EMDR with her current therapist. Past hospitalizations: Her most recent hospitalization was 5 years ago [facility] in [place] for the same feeling she is experiencing [...] to her fibromyalgia. [facility]. Relationships: Reports having people [...] equal bilaterally. CN XII: Tongue protrusion midline [facility] Medical History (Updated 11/17/22 @ [...] Monk MD> 11/17/22 1248 [facility] Work Phone: 1(279) 321-642203-23-2023 NoteCONSULTATION CONSULTATION DATE: 06/26/2022 To: Nurse Carrion [...] joint injection under fluoroscopic guidance.[facility] [id number] NotePROCEDURE: XR SHOULDER RT 2V or > [...] Electronically authenticated by: KINGSLEY CLEMENTS Date: 2022-05-09 09:21[facility]01-23-2023 NotePROCEDURE: XR WRIST LT MIN 3 [...] Electronically authenticated by: KINGSLEY CLEMENTS Date: 2022-04-28 13:31[facility]12-29-2022 NoteCONSULTATION CONSULTATION DATE: 04/03/2022 HISTORY OF [...] 4 mg q.h.s., Neurontin per her PCP, aLvinia and Manuelaien. She recently got her medical [...] three months, unless otherwise indicated.[facility] [id number] NoteCONSULTATION CONSULTATION DATE: 01/02/2022 This is a [...] Healthcare [facility] in [place] for the compounded cream. She needs a [...] months' time unless otherwise indicated.[facility] [id number] NotePROCEDURE: XR ANKLE RT MIN 3 VIEWS, [...] Electronically authenticated by: KINGSLEY CLEMENTS Date: 2022-01-01 13:11[facility]09-28-2022 NotePROCEDURE: XR ANKLE RT MIN 3 [...] Electronically authenticated by: KINGSLEY CLEMENTS Date: 2022-01-01 13:11[facility]08-18-2022 NotePROCEDURE: XR FOOT RT MIN 3 VIEWS HISTORY: Pain in right foot , chronic COMPARISON: XR foot right 2020 FINDINGS: BONES:No fracture, dislocation, bone lesion. Small calcaneal degenerative enthesophytes. SOFT TISSUES:No visible soft tissue swelling. EFFUSION:None visible. OTHER: Negative. IMPRESSION: 1. No acute bone abnormality or significant degenerative joint disease. Electronically authenticated by: KINGSLEY CLEMENTS Date: 2021-11-21 16:13[facility]06-30-2022 NoteCONSULTATION CONSULTATION DATE: 10/03/2021 This is [...] and Approved by: ZELDA MCDANIEL . 10/10/2021 10:22:00[facility] Diagnosis Onset Date Resolution Status Allergies acute Bipolar 2 disorder acute Hypertension acute Morbid obesity with BMI of 45.0-49.9, adult acute OSMANY (obstructive sleep apnea) acute Restless legs syndrome acute [facility] Work Phone: Evaluation noteNo InformationNortFilmTrack Other Evaluation noteNo assessment information available [facility] Work Phone: Evaluation note* Diagnosis Encounter for annual wellness visit (AWV) in Medicare patient- Primary OSMANY (obstructive sleep apnea) Obstructive sleep apnea (adult) (pediatric) Chronic pain disorder Chronic pain syndrome Gastroesophageal reflux disease, unspecified whether esophagitis present Overactive bladder Hypertonicity of bladder Lower extremity edema Edema Pre-diabetes Other abnormal glucose Morbid obesity ([facility]/HCC) Morbid obesity Yeast infection of the skin Candidiasis of skin and nails Tobacco dependence Tobacco use disorder Mood disorder ([facility]) Unspecified episodic mood disorder Primary hypertension ([facility]) Unspecified essential hypertension Left hip pain Pain in joint, pelvic region and thigh Open wound of anterior abdominal wall, initial encounter documented in this encounter [facility] HealthcareEvaluation note* Diagnosis Acute cystitis with hematuria- Primary documented in this encounter [facility] HealthcareEvaluation note* Diagnosis Left foot pain- Primary Pain in soft tissues of limb Primary hypertension ([facility]) Unspecified essential hypertension Class 3 severe obesity due to excess calories without serious comorbidity with body mass index (BMI) of 45.0 to 49.9 in adult ([facility]) Encounter for annual wellness visit (AWV) in Medicare patient- Primary OSMANY (obstructive sleep apnea) Obstructive sleep apnea (adult) (pediatric) Chronic pain disorder Chronic pain syndrome Gastroesophageal reflux disease, unspecified whether esophagitis present Overactive bladder Hypertonicity of bladder Lower extremity edema Edema Pre-diabetes Other abnormal glucose Morbid obesity ([facility]/HCC) Morbid obesity Yeast infection of the skin Candidiasis of skin and nails Tobacco dependence Tobacco use disorder Mood disorder ([facility]) Unspecified episodic mood disorder Primary hypertension ([facility]) Unspecified essential hypertension Left hip pain Pain in joint, pelvic region and thigh Open wound of anterior abdominal wall, initial encounter Primary hypertension ([facility])- Primary Unspecified essential hypertension Yeast infection of the skin Candidiasis of skin and nails Morbid obesity ([facility]) Morbid obesity Primary hypertension ([facility])- Primary Unspecified essential hypertension Encounter for screening mammogram for malignant neoplasm of breast Gastroesophageal reflux disease, unspecified whether esophagitis present Acute gout of right foot, unspecified cause Osteoporosis, unspecified osteoporosis type, unspecified pathological fracture presence ([facility]) Morbid obesity ([facility]) Morbid obesity Pre-diabetes Other abnormal glucose Anemia, unspecified type Vitamin deficiency Unspecified vitamin deficiency Post-viral cough syndrome Primary hypertension ([facility])- Primary Unspecified essential hypertension Allergic rhinitis, unspecified Acute cough Morbid obesity ([facility]) Morbid obesity Former cigarette smoker Personal history of tobacco use, presenting hazards to health Toxic metabolic encephalopathy- Primary Hemiparesis, right ([facility]) Unspecified hemiplegia affecting unspecified side Acute respiratory failure with hypoxia ([facility]) Heart murmur Undiagnosed cardiac murmurs Primary hypertension ([facility]) Unspecified essential hypertension Morbid obesity ([facility]) Morbid obesity Bipolar disorder with severe depression ([facility]) Slurred speech Other speech disturbance Bilateral lower extremity edema- Primary Primary hypertension ([facility]) Unspecified essential hypertension Lower extremity edema Edema Essential (primary) hypertension ([facility]) Unspecified essential hypertension Gastro-esophageal reflux disease without esophagitis Allergic rhinitis, unspecified Bilateral lower extremity edema- Primary Morbid (severe) obesity due to excess calories ([facility]) Body mass index (BMI) 45.0-49.9, adult ([facility]) Pre-diabetes Other abnormal glucose Bilateral lower extremity edema- Primary Essential (primary) hypertension ([facility]) Unspecified essential hypertension Allergic rhinitis, unspecified OSMANY (obstructive sleep apnea) Obstructive sleep apnea (adult) (pediatric) Primary hypertension ([facility]) Unspecified essential hypertension Morbid obesity ([facility]) Morbid obesity Acute cystitis without hematuria- Primary Tobacco dependence Tobacco use disorder Needs flu shot Need for prophylactic vaccination and inoculation against influenza Morbid obesity ([facility]) Morbid obesity documented in this encounter [facility] HealthcareEvaluation note* Diagnosis Left foot pain- Primary Pain in soft tissues of limb Primary hypertension ([facility]) Unspecified essential hypertension Class 3 severe obesity due to excess calories without serious comorbidity with body mass index (BMI) of 45.0 to 49.9 in adult ([facility]) Encounter for annual wellness visit (AWV) in Medicare patient- Primary OSMANY (obstructive sleep apnea) Obstructive sleep apnea (adult) (pediatric) Chronic pain disorder Chronic pain syndrome Gastroesophageal reflux disease, unspecified whether esophagitis present Overactive bladder Hypertonicity of bladder Lower extremity edema Edema Pre-diabetes Other abnormal glucose Morbid obesity ([facility]) Morbid obesity Yeast infection of the skin Candidiasis of skin and nails Tobacco dependence Tobacco use disorder Mood disorder ([facility]) Unspecified episodic mood disorder Primary hypertension ([facility]) Unspecified essential hypertension Left hip pain Pain in joint, pelvic region and thigh Open wound of anterior abdominal wall, initial encounter Primary hypertension ([facility])- Primary Unspecified essential hypertension Yeast infection of the skin Candidiasis of skin and nails Morbid obesity ([facility]) Morbid obesity Primary hypertension ([facility])- Primary Unspecified essential hypertension Encounter for screening mammogram for malignant neoplasm of breast Gastroesophageal reflux disease, unspecified whether esophagitis present Acute gout of right foot, unspecified cause Osteoporosis, unspecified osteoporosis type, unspecified pathological fracture presence ([facility]) Morbid obesity ([facility]) Morbid obesity Pre-diabetes Other abnormal glucose Anemia, unspecified type Vitamin deficiency Unspecified vitamin deficiency Post-viral cough syndrome Primary hypertension ([facility])- Primary Unspecified essential hypertension Allergic rhinitis, unspecified Acute cough Morbid obesity ([facility]) Morbid obesity Former cigarette smoker Personal history of tobacco use, presenting hazards to health Toxic metabolic encephalopathy- Primary Hemiparesis, right ([facility]) Unspecified hemiplegia affecting unspecified side Acute respiratory failure with hypoxia ([facility]) Heart murmur Undiagnosed cardiac murmurs Primary hypertension ([facility]) Unspecified essential hypertension Morbid obesity ([facility]) Morbid obesity Bipolar disorder with severe depression ([facility]) Slurred speech Other speech disturbance Bilateral lower extremity edema- Primary Primary hypertension ([facility]) Unspecified essential hypertension Lower extremity edema Edema Essential (primary) hypertension ([facility]) Unspecified essential hypertension Gastro-esophageal reflux disease without esophagitis Allergic rhinitis, unspecified Bilateral lower extremity edema- Primary Morbid (severe) obesity due to excess calories ([facility]) Body mass index (BMI) 45.0-49.9, adult ([facility]) Pre-diabetes Other abnormal glucose Bilateral lower extremity edema- Primary Essential (primary) hypertension ([facility]) Unspecified essential hypertension Allergic rhinitis, unspecified OSMANY (obstructive sleep apnea) Obstructive sleep apnea (adult) (pediatric) Primary hypertension ([facility]) Unspecified essential hypertension Morbid obesity ([facility]) Morbid obesity Acute cystitis without hematuria- Primary Tobacco dependence Tobacco use disorder Needs flu shot Need for prophylactic vaccination and inoculation against influenza Morbid obesity ([facility]) Morbid obesity Restless leg Restless legs syndrome (RLS) documented in this encounter [facility] HealthcareEvaluation note* Diagnosis Left foot pain- Primary Pain in soft tissues of limb Primary hypertension ([facility]) Unspecified essential hypertension Class 3 severe obesity due to excess calories without serious comorbidity with body mass index (BMI) of 45.0 to 49.9 in adult ([facility]) Encounter for annual wellness visit (AWV) in Medicare patient- Primary OSMANY (obstructive sleep apnea) Obstructive sleep apnea (adult) (pediatric) Chronic pain disorder Chronic pain syndrome Gastroesophageal reflux disease, unspecified whether esophagitis present Overactive bladder Hypertonicity of bladder Lower extremity edema Edema Pre-diabetes Other abnormal glucose Morbid obesity ([facility]) Morbid obesity Yeast infection of the skin Candidiasis of skin and nails Tobacco dependence Tobacco use disorder Mood disorder ([facility]) Unspecified episodic mood disorder Primary hypertension ([facility]) Unspecified essential hypertension Left hip pain Pain in joint, pelvic region and thigh Open wound of anterior abdominal wall, initial encounter Primary hypertension ([facility])- Primary Unspecified essential hypertension Yeast infection of the skin Candidiasis of skin and nails Morbid obesity ([facility]) Morbid obesity Primary hypertension ([facility])- Primary Unspecified essential hypertension Encounter for screening mammogram for malignant neoplasm of breast Gastroesophageal reflux disease, unspecified whether esophagitis present Acute gout of right foot, unspecified cause Osteoporosis, unspecified osteoporosis type, unspecified pathological fracture presence ([facility]) Morbid obesity ([facility]) Morbid obesity Pre-diabetes Other abnormal glucose Anemia, unspecified type Vitamin deficiency Unspecified vitamin deficiency Post-viral cough syndrome Primary hypertension ([facility])- Primary Unspecified essential hypertension Allergic rhinitis, unspecified Acute cough Morbid obesity ([facility]) Morbid obesity Former cigarette smoker Personal history of tobacco use, presenting hazards to health Toxic metabolic encephalopathy- Primary Hemiparesis, right ([facility]) Unspecified hemiplegia affecting unspecified side Acute respiratory failure with hypoxia ([facility]) Heart murmur Undiagnosed cardiac murmurs Primary hypertension ([facility] Unspecified essential hypertension Morbid obesity ([facility]) Morbid obesity Bipolar disorder with severe depression ([facility]) Slurred speech Other speech disturbance Bilateral lower extremity edema- Primary Primary hypertension ([facility]) Unspecified essential hypertension Lower extremity edema Edema Essential (primary) hypertension ([facility]) Unspecified essential hypertension Gastro-esophageal reflux disease without esophagitis Allergic rhinitis, unspecified Bilateral lower extremity edema- Primary Morbid (severe) obesity due to excess calories ([facility]) Body mass index (BMI) 45.0-49.9, adult ([facility]) Pre-diabetes Other abnormal glucose Bilateral lower extremity edema- Primary Essential (primary) hypertension ([facility]) Unspecified essential hypertension Allergic rhinitis, unspecified OSMANY (obstructive sleep apnea) Obstructive sleep apnea (adult) (pediatric) Primary hypertension ([facility]) Unspecified essential hypertension Morbid obesity ([facility]) Morbid obesity Acute cystitis without hematuria- Primary Tobacco dependence Tobacco use disorder Needs flu shot Need for prophylactic vaccination and inoculation against influenza Morbid obesity ([facility]) Morbid obesity Well woman exam with routine gynecological exam- Primary Routine gynecological examination Morbid obesity ([facility]) Morbid obesity documented in this encounter [facility] HealthcareEvaluation note* Diagnosis Left foot pain- Primary Pain in soft tissues of limb Primary hypertension ([facility]) Unspecified essential hypertension Class 3 severe obesity due to excess calories without serious comorbidity with body mass index (BMI) of 45.0 to 49.9 in adult ([facility]) Encounter for annual wellness visit (AWV) in Medicare patient- Primary OSMANY (obstructive sleep apnea) Obstructive sleep apnea (adult) (pediatric) Chronic pain disorder Chronic pain syndrome Gastroesophageal reflux disease, unspecified whether esophagitis present Overactive bladder Hypertonicity of bladder Lower extremity edema Edema Pre-diabetes Other abnormal glucose Morbid obesity ([facility]) Morbid obesity Yeast infection of the skin Candidiasis of skin and nails Tobacco dependence Tobacco use disorder Mood disorder ([facility]) Unspecified episodic mood disorder Primary hypertension ([facility]) Unspecified essential hypertension Left hip pain Pain in joint, pelvic region and thigh Open wound of anterior abdominal wall, initial encounter Primary hypertension ([facility])- Primary Unspecified essential hypertension Yeast infection of the skin Candidiasis of skin and nails Morbid obesity ([facility]) Morbid obesity Primary hypertension ([facility])- Primary Unspecified essential hypertension Encounter for screening mammogram for malignant neoplasm of breast Gastroesophageal reflux disease, unspecified whether esophagitis present Acute gout of right foot, unspecified cause Osteoporosis, unspecified osteoporosis type, unspecified pathological fracture presence ([facility]) Morbid obesity ([facility]) Morbid obesity Pre-diabetes Other abnormal glucose Anemia, unspecified type Vitamin deficiency Unspecified vitamin deficiency Post-viral cough syndrome Primary hypertension ([facility])- Primary Unspecified essential hypertension Allergic rhinitis, unspecified Acute cough Morbid obesity ([facility]) Morbid obesity Former cigarette smoker Personal history of tobacco use, presenting hazards to health Toxic metabolic encephalopathy- Primary Hemiparesis, right ([facility]) Unspecified hemiplegia affecting unspecified side Acute respiratory failure with hypoxia ([facility]) Heart murmur Undiagnosed cardiac murmurs Primary hypertension ([facility]) Unspecified essential hypertension Morbid obesity ([facility]) Morbid obesity Bipolar disorder with severe depression ([facility]) Slurred speech Other speech disturbance Bilateral lower extremity edema- Primary Primary hypertension ([facility]) Unspecified essential hypertension Lower extremity edema Edema Essential (primary) hypertension ([facility]) Unspecified essential hypertension Gastro-esophageal reflux disease without esophagitis Allergic rhinitis, unspecified Bilateral lower extremity edema- Primary Morbid (severe) obesity due to excess calories ([facility]) Body mass index (BMI) 45.0-49.9, adult ([facility]) Pre-diabetes Other abnormal glucose Bilateral lower extremity edema- Primary Essential (primary) hypertension ([facility]) Unspecified essential hypertension Allergic rhinitis, unspecified OSMANY (obstructive sleep apnea) Obstructive sleep apnea (adult) (pediatric) Primary hypertension ([facility]) Unspecified essential hypertension Morbid obesity ([facility]) Morbid obesity Acute cystitis without hematuria- Primary Tobacco dependence Tobacco use disorder Needs flu shot Need for prophylactic vaccination and inoculation against influenza Morbid obesity ([facility]) Morbid obesity Well woman exam with routine gynecological exam- Primary Routine gynecological examination Morbid obesity ([facility]) Morbid obesity Essential (primary) hypertension ([facility]) Unspecified essential hypertension Allergic rhinitis, unspecified documented in this encounter [facility] HealthcareEvaluation note* Diagnosis Left foot pain- Primary Pain in soft tissues of limb Primary hypertension ([facility]) Unspecified essential hypertension Class 3 severe obesity due to excess calories without serious comorbidity with body mass index (BMI) of 45.0 to 49.9 in adult ([facility]) Encounter for annual wellness visit (AWV) in Medicare patient- Primary OSMANY (obstructive sleep apnea) Obstructive sleep apnea (adult) (pediatric) Chronic pain disorder Chronic pain syndrome Gastroesophageal reflux disease, unspecified whether esophagitis present Overactive bladder Hypertonicity of bladder Lower extremity edema Edema Pre-diabetes Other abnormal glucose Morbid obesity ([facility]) Morbid obesity Yeast infection of the skin Candidiasis of skin and nails Tobacco dependence Tobacco use disorder Mood disorder ([facility]) Unspecified episodic mood disorder Primary hypertension ([facility]) Unspecified essential hypertension Left hip pain Pain in joint, pelvic region and thigh Open wound of anterior abdominal wall, initial encounter Primary hypertension ([facility])- Primary Unspecified essential hypertension Yeast infection of the skin Candidiasis of skin and nails Morbid obesity ([facility]) Morbid obesity Primary hypertension ([facility])- Primary Unspecified essential hypertension Encounter for screening mammogram for malignant neoplasm of breast Gastroesophageal reflux disease, unspecified whether esophagitis present Acute gout of right foot, unspecified cause Osteoporosis, unspecified osteoporosis type, unspecified pathological fracture presence ([facility]) Morbid obesity ([facility]) Morbid obesity Pre-diabetes Other abnormal glucose Anemia, unspecified type Vitamin deficiency Unspecified vitamin deficiency Post-viral cough syndrome Primary hypertension ([facility])- Primary Unspecified essential hypertension Allergic rhinitis, unspecified Acute cough Morbid obesity ([facility]) Morbid obesity Former cigarette smoker Personal history of tobacco use, presenting hazards to health Toxic metabolic encephalopathy- Primary Hemiparesis, right ([facility]) Unspecified hemiplegia affecting unspecified side Acute respiratory failure with hypoxia ([facility]) Heart murmur Undiagnosed cardiac murmurs Primary hypertension ([facility]) [facility]specified essential hypertension Morbid obesity ([facility]) Morbid obesity Bipolar disorder with severe depression ([facility]) Slurred speech Other speech disturbance Bilateral lower extremity edema- Primary Primary hypertension ([facility]) Unspecified essential hypertension Lower extremity edema Edema Essential (primary) hypertension ([facility]) Unspecified essential hypertension Gastro-esophageal reflux disease without esophagitis Allergic rhinitis, unspecified Bilateral lower extremity edema- Primary Morbid (severe) obesity due to excess calories ([facility]) Body mass index (BMI) 45.0-49.9, adult ([facility]) Pre-diabetes Other abnormal glucose Bilateral lower extremity edema- Primary Essential (primary) hypertension ([facility]) Unspecified essential hypertension Allergic rhinitis, unspecified OSMANY (obstructive sleep apnea) Obstructive sleep apnea (adult) (pediatric) Primary hypertension ([facility]) Unspecified essential hypertension Morbid obesity ([facility]) Morbid obesity Acute cystitis without hematuria- Primary Tobacco dependence Tobacco use disorder Needs flu shot Need for prophylactic vaccination and inoculation against influenza Morbid obesity (CMS/HCC) Morbid obesity Well woman exam with routine gynecological exam- Primary Routine gynecological examination Morbid obesity ([facility]) Morbid obesity Allergic rhinitis, unspecified documented in this encounter [facility] HealthcareEvaluation note* Diagnosis Left foot pain- Primary Pain in soft tissues of limb Primary hypertension ([facility]) Unspecified essential hypertension Class 3 severe obesity due to excess calories without serious comorbidity with body mass index (BMI) of 45.0 to 49.9 in adult ([facility]) Encounter for annual wellness visit (AWV) in Medicare patient- Primary OSMANY (obstructive sleep apnea) Obstructive sleep apnea (adult) (pediatric) Chronic pain disorder Chronic pain syndrome Gastroesophageal reflux disease, unspecified whether esophagitis present Overactive bladder Hypertonicity of bladder Lower extremity edema Edema Pre-diabetes Other abnormal glucose Morbid obesity ([facility]) Morbid obesity Yeast infection of the skin Candidiasis of skin and nails Tobacco dependence Tobacco use disorder Mood disorder ([facility]) Unspecified episodic mood disorder Primary hypertension ([facility]) Unspecified essential hypertension Left hip pain Pain in joint, pelvic region and thigh Open wound of anterior abdominal wall, initial encounter Primary hypertension ([facility])- Primary Unspecified essential hypertension Yeast infection of the skin Candidiasis of skin and nails Morbid obesity ([facility]) Morbid obesity Primary hypertension ([facility])- Primary Unspecified essential hypertension Encounter for screening mammogram for malignant neoplasm of breast Gastroesophageal reflux disease, unspecified whether esophagitis present Acute gout of right foot, unspecified cause Osteoporosis, unspecified osteoporosis type, unspecified pathological fracture presence ([facility]) Morbid obesity ([facility]) Morbid obesity Pre-diabetes Other abnormal glucose Anemia, unspecified type Vitamin deficiency Unspecified vitamin deficiency Post-viral cough syndrome Primary hypertension ([facility])- Primary Unspecified essential hypertension Allergic rhinitis, unspecified Acute cough Morbid obesity ([facility]) Morbid obesity Former cigarette smoker Personal history of tobacco use, presenting hazards to health Toxic metabolic encephalopathy- Primary Hemiparesis, right ([facility]) Unspecified hemiplegia affecting unspecified side Acute respiratory failure with hypoxia ([facility]) Heart murmur Undiagnosed cardiac murmurs Primary hypertension ([facility] Unspecified essential hypertension Morbid obesity ([facility]) Morbid obesity Bipolar disorder with severe depression ([facility]) Slurred speech Other speech disturbance Bilateral lower extremity edema- Primary Primary hypertension ([facility]) Unspecified essential hypertension Lower extremity edema Edema Essential (primary) hypertension ([facility]) Unspecified essential hypertension Gastro-esophageal reflux disease without esophagitis Allergic rhinitis, unspecified Bilateral lower extremity edema- Primary Morbid (severe) obesity due to excess calories ([facility]) Body mass index (BMI) 45.0-49.9, adult ([facility]) Pre-diabetes Other abnormal glucose Bilateral lower extremity edema- Primary Essential (primary) hypertension ([facility]) Unspecified essential hypertension Allergic rhinitis, unspecified OSMANY (obstructive sleep apnea) Obstructive sleep apnea (adult) (pediatric) Primary hypertension ([facility]) Unspecified essential hypertension Morbid obesity ([facility]) Morbid obesity Acute cystitis without hematuria- Primary Tobacco dependence Tobacco use disorder Needs flu shot Need for prophylactic vaccination and inoculation against influenza Morbid obesity ([facility]) Morbid obesity Well woman exam with routine gynecological exam- Primary Routine gynecological examination Morbid obesity ([facility]) Morbid obesity Yeast infection of the skin Candidiasis of skin and nails documented in this encounter [facility] HealthcareEvaluation note* Diagnosis Left foot pain- Primary Pain in soft tissues of limb Primary hypertension ([facility]) Unspecified essential hypertension Class 3 severe obesity due to excess calories without serious comorbidity with body mass index (BMI) of 45.0 to 49.9 in adult ([facility]) Encounter for annual wellness visit (AWV) in Medicare patient- Primary OSMANY (obstructive sleep apnea) Obstructive sleep apnea (adult) (pediatric) Chronic pain disorder Chronic pain syndrome Gastroesophageal reflux disease, unspecified whether esophagitis present Overactive bladder Hypertonicity of bladder Lower extremity edema Edema Pre-diabetes Other abnormal glucose Morbid obesity ([facility]) Morbid obesity Yeast infection of the skin Candidiasis of skin and nails Tobacco dependence Tobacco use disorder Mood disorder ([facility]) Unspecified episodic mood disorder Primary hypertension ([facility]) Unspecified essential hypertension Left hip pain Pain in joint, pelvic region and thigh Open wound of anterior abdominal wall, initial encounter Primary hypertension ([facility])- Primary Unspecified essential hypertension Yeast infection of the skin Candidiasis of skin and nails Morbid obesity ([facility]/HCC) Morbid obesity Primary hypertension ([facility])- Primary Unspecified essential hypertension Encounter for screening mammogram for malignant neoplasm of breast Gastroesophageal reflux disease, unspecified whether esophagitis present Acute gout of right foot, unspecified cause Osteoporosis, unspecified osteoporosis type, unspecified pathological fracture presence ([facility]) Morbid obesity ([facility]) Morbid obesity Pre-diabetes Other abnormal glucose Anemia, unspecified type Vitamin deficiency Unspecified vitamin deficiency Post-viral cough syndrome Primary hypertension ([facility])- Primary Unspecified essential hypertension Allergic rhinitis, unspecified Acute cough Morbid obesity ([facility]) Morbid obesity Former cigarette smoker Personal history of tobacco use, presenting hazards to health Toxic metabolic encephalopathy- Primary Hemiparesis, right ([facility]) Unspecified hemiplegia affecting unspecified side Acute respiratory failure with hypoxia ([facility]) Heart murmur Undiagnosed cardiac murmurs Primary hypertension ([facility] Unspecified essential hypertension Morbid obesity ([facility]) Morbid obesity Bipolar disorder with severe depression ([facility]) Slurred speech Other speech disturbance Bilateral lower extremity edema- Primary Primary hypertension ([facility]) Unspecified essential hypertension Lower extremity edema Edema Essential (primary) hypertension ([facility]) Unspecified essential hypertension Gastro-esophageal reflux disease without esophagitis Allergic rhinitis, unspecified Bilateral lower extremity edema- Primary Morbid (severe) obesity due to excess calories ([facility]) Body mass index (BMI) 45.0-49.9, adult ([facility]) Pre-diabetes Other abnormal glucose Bilateral lower extremity edema- Primary Essential (primary) hypertension ([facility]) Unspecified essential hypertension Allergic rhinitis, unspecified OSMANY (obstructive sleep apnea) Obstructive sleep apnea (adult) (pediatric) Primary hypertension ([facility]) Unspecified essential hypertension Morbid obesity ([facility]) Morbid obesity Acute cystitis without hematuria- Primary Tobacco dependence Tobacco use disorder Needs flu shot Need for prophylactic vaccination and inoculation against influenza Morbid obesity ([facility]) Morbid obesity Well woman exam with routine gynecological exam- Primary Routine gynecological examination Morbid obesity ([facility]) Morbid obesity Metabolic encephalopathy- Primary OSMANY (obstructive sleep apnea) Obstructive sleep apnea (adult) (pediatric) Restless leg Restless legs syndrome (RLS) 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 ([facility]) Degeneration of intervertebral disc of lumbar region with discogenic back pain and lower extremity pain Memory change Memory loss documented in this encounter [facility]* Diagnosis Left foot pain- Primary Pain in soft tissues of limb Primary hypertension ([facility]) Unspecified essential hypertension Class 3 severe obesity due to excess calories without serious comorbidity with body mass index (BMI) of 45.0 to 49.9 in adult ([facility]) Encounter for annual wellness visit (AWV) in Medicare patient- Primary OSMANY (obstructive sleep apnea) Obstructive sleep apnea (adult) (pediatric) Chronic pain disorder Chronic pain syndrome Gastroesophageal reflux disease, unspecified whether esophagitis present Overactive bladder Hypertonicity of bladder Lower extremity edema Edema Pre-diabetes Other abnormal glucose Morbid obesity ([facility]) Morbid obesity Yeast infection of the skin Candidiasis of skin and nails Tobacco dependence Tobacco use disorder Mood disorder ([facility]) Unspecified episodic mood disorder Primary hypertension ([facility]) Unspecified essential hypertension Left hip pain Pain in joint, pelvic region and thigh Open wound of anterior abdominal wall, initial encounter Primary hypertension ([facility])- Primary Unspecified essential hypertension Yeast infection of the skin Candidiasis of skin and nails Morbid obesity ([facility]) Morbid obesity Primary hypertension ([facility])- Primary Unspecified essential hypertension Encounter for screening mammogram for malignant neoplasm of breast Gastroesophageal reflux disease, unspecified whether esophagitis present Acute gout of right foot, unspecified cause Osteoporosis, unspecified osteoporosis type, unspecified pathological fracture presence ([facility]) Morbid obesity ([facility]) Morbid obesity Pre-diabetes Other abnormal glucose Anemia, unspecified type Vitamin deficiency Unspecified vitamin deficiency Post-viral cough syndrome Primary hypertension ([facility])- Primary Unspecified essential hypertension Allergic rhinitis, unspecified Acute cough Morbid obesity ([facility]) Morbid obesity Former cigarette smoker Personal history of tobacco use, presenting hazards to health Toxic metabolic encephalopathy- Primary Hemiparesis, right ([facility]) Unspecified hemiplegia affecting unspecified side Acute respiratory failure with hypoxia ([facility]) Heart murmur Undiagnosed cardiac murmurs Primary hypertension ([facility]) Unspecified essential hypertension Morbid obesity ([facility]) Morbid obesity Bipolar disorder with severe depression ([facility]) Slurred speech Other speech disturbance Bilateral lower extremity edema- Primary Primary hypertension ([facility]) Unspecified essential hypertension Lower extremity edema Edema Essential (primary) hypertension ([facility]) Unspecified essential hypertension Gastro-esophageal reflux disease without esophagitis Allergic rhinitis, unspecified Bilateral lower extremity edema- Primary Morbid (severe) obesity due to excess calories ([facility]) Body mass index (BMI) 45.0-49.9, adult ([facility]) Pre-diabetes Other abnormal glucose Bilateral lower extremity edema- Primary Essential (primary) hypertension ([facility]) Unspecified essential hypertension Allergic rhinitis, unspecified OSMANY (obstructive sleep apnea) Obstructive sleep apnea (adult) (pediatric) Primary hypertension ([facility]) Unspecified essential hypertension Morbid obesity ([facility]) Morbid obesity Acute cystitis without hematuria- Primary Tobacco dependence Tobacco use disorder Needs flu shot Need for prophylactic vaccination and inoculation against influenza Morbid obesity ([facility]) Morbid obesity Well woman exam with routine gynecological exam- Primary Routine gynecological examination Morbid obesity ([facility]) Morbid obesity Altered mental status, unspecified altered mental status type- Primary Restless leg Restless legs syndrome (RLS) 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[facility]) OSMNAY (obstructive sleep apnea) Obstructive sleep apnea (adult) (pediatric) documented in this encounter [facility] HealthcareEvaluation note* Diagnosis Left foot pain- Primary Pain in soft tissues of limb Primary hypertension ([facility]) Unspecified essential hypertension Class 3 severe obesity due to excess calories without serious comorbidity with body mass index (BMI) of 45.0 to 49.9 in adult ([facility]) Encounter for annual wellness visit (AWV) in Medicare patient- Primary OSMANY (obstructive sleep apnea) Obstructive sleep apnea (adult) (pediatric) Chronic pain disorder Chronic pain syndrome Gastroesophageal reflux disease, unspecified whether esophagitis present Overactive bladder Hypertonicity of bladder Lower extremity edema Edema Pre-diabetes Other abnormal glucose Morbid obesity ([facility]) Morbid obesity Yeast infection of the skin Candidiasis of skin and nails Tobacco dependence Tobacco use disorder Mood disorder ([facility]) Unspecified episodic mood disorder Primary hypertension ([facility]) Unspecified essential hypertension Left hip pain Pain in joint, pelvic region and thigh Open wound of anterior abdominal wall, initial encounter Primary hypertension ([facility])- Primary Unspecified essential hypertension Yeast infection of the skin Candidiasis of skin and nails Morbid obesity ([facility]) Morbid obesity Primary hypertension ([facility])- Primary Unspecified essential hypertension Encounter for screening mammogram for malignant neoplasm of breast Gastroesophageal reflux disease, unspecified whether esophagitis present Acute gout of right foot, unspecified cause Osteoporosis, unspecified osteoporosis type, unspecified pathological fracture presence ([facility]) Morbid obesity ([facility]) Morbid obesity Pre-diabetes Other abnormal glucose Anemia, unspecified type Vitamin deficiency Unspecified vitamin deficiency Post-viral cough syndrome Primary hypertension ([facility])- Primary Unspecified essential hypertension Allergic rhinitis, unspecified Acute cough Morbid obesity ([facility]) Morbid obesity Former cigarette smoker Personal history of tobacco use, presenting hazards to health Toxic metabolic encephalopathy- Primary Hemiparesis, right ([facility]) Unspecified hemiplegia affecting unspecified side Acute respiratory failure with hypoxia ([facility]) Heart murmur Undiagnosed cardiac murmurs Primary hypertension ([facility]) [facility]specified essential hypertension Morbid obesity ([facility]) Morbid obesity Bipolar disorder with severe depression ([facility]) Slurred speech Other speech disturbance Bilateral lower extremity edema- Primary Primary hypertension ([facility]) Unspecified essential hypertension Lower extremity edema Edema Essential (primary) hypertension ([facility]) Unspecified essential hypertension Gastro-esophageal reflux disease without esophagitis Allergic rhinitis, unspecified Bilateral lower extremity edema- Primary Morbid (severe) obesity due to excess calories ([facility]) Body mass index (BMI) 45.0-49.9, adult ([facility]) Pre-diabetes Other abnormal glucose Bilateral lower extremity edema- Primary Essential (primary) hypertension ([facility]) Unspecified essential hypertension Allergic rhinitis, unspecified OSMANY (obstructive sleep apnea) Obstructive sleep apnea (adult) (pediatric) Primary hypertension ([facility]) Unspecified essential hypertension Morbid obesity ([facility]) Morbid obesity Acute cystitis without hematuria- Primary Tobacco dependence Tobacco use disorder Needs flu shot Need for prophylactic vaccination and inoculation against influenza Morbid obesity ([facility]) Morbid obesity Well woman exam with routine gynecological exam- Primary Routine gynecological examination Morbid obesity ([facility]) Morbid obesity Altered mental status, unspecified altered mental status type- Primary Memory change Memory loss Concentration deficit 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 ([facility]) PTSD (post-traumatic stress disorder) ([facility]) Posttraumatic stress disorder Bipolar affective disorder, remission status unspecified ([facility]) Family history of dementia Family history [...] Morbid obesity ([facility]) Morbid obesity Yeast infection of the skin Candidiasis of skin and nails Tobacco dependence Tobacco use disorder Mood disorder ([facility]) Unspecified episodic mood disorder Primary hypertension ([facility]) Unspecified essential hypertension Left hip pain Pain in joint, pelvic region and thigh Open wound of anterior abdominal wall, initial encounter Primary hypertension ([facility])- Primary Unspecified essential hypertension Yeast infection of the skin Candidiasis of skin and nails Morbid obesity ([facility]) Morbid obesity Primary hypertension ([facility])- Primary Unspecified essential hypertension Allergic rhinitis, unspecified Acute cough Morbid obesity ([facility]) Morbid obesity Former cigarette smoker Personal history of tobacco use, presenting hazards to health Toxic metabolic encephalopathy- Primary Hemiparesis, right ([facility]) Unspecified hemiplegia affecting unspecified side Acute respiratory failure with hypoxia ([facility]) Heart murmur Undiagnosed cardiac murmurs Primary hypertension ([facility] Unspecified essential hypertension Morbid obesity ([facility]) Morbid obesity Bipolar disorder with severe depression ([facility]) Slurred speech Other speech disturbance Bilateral lower extremity edema- Primary Primary hypertension ([facility]) Unspecified essential hypertension Lower extremity edema Edema Essential (primary) hypertension ([facility]) Unspecified essential hypertension Gastro-esophageal reflux disease without esophagitis Allergic rhinitis, unspecified Bilateral lower extremity edema- Primary Morbid (severe) obesity due to excess calories ([facility]) Body mass index (BMI) 45.0-49.9, adult ([facility]) Pre-diabetes Other abnormal glucose Bilateral lower extremity edema- Primary Essential (primary) hypertension ([facility]) Unspecified essential hypertension Allergic rhinitis, unspecified OSMANY (obstructive sleep apnea) Obstructive sleep apnea (adult) (pediatric) Primary hypertension ([facility]) Unspecified essential hypertension Morbid obesity ([facility]) Morbid obesity Acute cystitis without hematuria- Primary Tobacco dependence Tobacco use disorder Needs flu shot Need for prophylactic vaccination and inoculation against influenza Morbid obesity ([facility]) Morbid obesity Well woman exam with routine gynecological exam- Primary Routine gynecological examination Morbid obesity ([facility]) Morbid obesity Restless leg Restless legs syndrome (RLS) Metabolic encephalopathy- Primary OSMANY (obstructive sleep apnea) Obstructive sleep apnea (adult) (pediatric) Morbid obesity ([facility]) Morbid obesity Bilateral lower extremity edema Tobacco dependence Tobacco use disorder Bipolar disorder with severe depression ([facility]) At risk for polypharmacy Anxiety Anxiety [...] Morbid obesity ([facility]) Morbid obesity Yeast infection of the skin Candidiasis of skin and nails Tobacco dependence Tobacco use disorder Mood disorder ([facility]) Unspecified episodic mood disorder Primary hypertension ([facility]) Unspecified essential hypertension Left hip pain Pain in joint, pelvic region and thigh Open wound of anterior abdominal wall, initial encounter Primary hypertension ([facility])- Primary Unspecified essential hypertension Yeast infection of the skin Candidiasis of skin and nails Morbid obesity ([facility] Morbid obesity Primary hypertension ([facility])- Primary Unspecified essential hypertension Allergic rhinitis, unspecified Acute cough Morbid obesity ([facility]) Morbid obesity Former cigarette smoker Personal history of tobacco use, presenting hazards to health Toxic metabolic encephalopathy- Primary Hemiparesis, right ([facility]) Unspecified hemiplegia affecting unspecified side Acute respiratory failure with hypoxia ([facility]) Heart murmur Undiagnosed cardiac murmurs Primary hypertension ([facility] Unspecified essential hypertension Morbid obesity ([facility]) Morbid obesity Bipolar disorder with severe depression ([facility]) Slurred speech Other speech disturbance Bilateral lower extremity edema- Primary Primary hypertension ([facility]) Unspecified essential hypertension Lower extremity edema Edema Essential (primary) hypertension ([facility]) Unspecified essential hypertension Gastro-esophageal reflux disease without esophagitis Allergic rhinitis, unspecified Bilateral lower extremity edema- Primary Morbid (severe) obesity due to excess calories ([facility]) Body mass index (BMI) 45.0-49.9, adult ([facility]) Pre-diabetes Other abnormal glucose Bilateral lower extremity edema- Primary Essential (primary) hypertension ([facility]) Unspecified essential hypertension Allergic rhinitis, unspecified OSMANY (obstructive sleep apnea) Obstructive sleep apnea (adult) (pediatric) Primary hypertension ([facility]) Unspecified essential hypertension Morbid obesity ([facility]) Morbid obesity Acute cystitis without hematuria- Primary Tobacco dependence Tobacco use disorder Needs flu shot Need for prophylactic vaccination and inoculation against influenza Morbid obesity ([facility]) Morbid obesity Well woman exam with routine gynecological exam- Primary Routine gynecological examination Morbid obesity ([facility]) Morbid obesity Metabolic encephalopathy- Primary OSMANY (obstructive sleep apnea) Obstructive sleep apnea (adult) (pediatric) Morbid obesity ([facility]) Morbid obesity Bilateral lower extremity edema Tobacco dependence Tobacco use disorder Bipolar disorder with severe depression ([facility]) At risk for polypharmacy Anxiety Anxiety state, unspecified Primary hypertension ([facility]) Unspecified essential hypertension Right bundle branch block (RBBB) determined by electrocardiography documented in this encounter [facility] HealthcareEvaluation [facility]* Diagnosis Yeast infection of the skin- Primary Candidiasis of skin and nails documented in this encounter [facility]* Diagnosis 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[facility])- Primary Restless leg Restless legs syndrome (RLS) Metabolic encephalopathy documented in this encounter [facility]* Diagnosis OSMANY (obstructive sleep apnea)- Primary Obstructive sleep apnea (adult) (pediatric) Restless leg Restless legs syndrome (RLS) documented in this encounter [facility]* Diagnosis Bilateral lower extremity edema- Primary Essential (primary) hypertension ([facility]) Unspecified essential hypertension Allergic rhinitis, unspecified OSMANY (obstructive sleep apnea) Obstructive sleep apnea (adult) (pediatric) Primary hypertension ([facility]) Unspecified essential hypertension Morbid obesity ([facility]) Morbid obesity documented in this encounter [facility] HealthcareEvaluation note* Diagnosis Lower extremity edema Edema documented in this encounter [facility] HealthcareEvaluation note* Diagnosis Encounter for annual wellness visit (AWV) in Medicare patient- Primary OSMANY (obstructive sleep apnea) Obstructive sleep apnea (adult) (pediatric) Chronic pain disorder Chronic pain syndrome Gastroesophageal reflux disease, unspecified whether esophagitis present Overactive bladder Hypertonicity of bladder Lower extremity edema Edema Pre-diabetes Other abnormal glucose Morbid obesity ([facility]) Morbid obesity Yeast infection of the skin Candidiasis of skin and nails Tobacco dependence Tobacco use disorder Mood disorder ([facility]) Unspecified episodic mood disorder Primary hypertension ([facility]) Unspecified essential hypertension Left hip pain Pain in joint, pelvic region and thigh Open wound of anterior abdominal wall, initial encounter Primary hypertension ([facility])- Primary Unspecified essential hypertension Yeast infection of the skin Candidiasis of skin and nails Morbid obesity ([facility]) Morbid obesity Primary hypertension ([facility])- Primary Unspecified essential hypertension Allergic rhinitis, unspecified Acute cough Morbid obesity ([facility]) Morbid obesity Former cigarette smoker Personal history of tobacco use, presenting hazards to health Toxic metabolic encephalopathy- Primary Hemiparesis, right ([facility]) Unspecified hemiplegia affecting unspecified side Acute respiratory failure with hypoxia ([facility]) Heart murmur Undiagnosed cardiac murmurs Primary hypertension ([facility]) Unspecified essential hypertension Morbid obesity ([facility]) Morbid obesity Bipolar disorder with severe depression ([facility]) Slurred speech Other speech disturbance Bilateral lower extremity edema- Primary Primary hypertension ([facility]) Unspecified essential hypertension Lower extremity edema Edema Essential (primary) hypertension ([facility]) Unspecified essential hypertension Gastro-esophageal reflux disease without esophagitis Allergic rhinitis, unspecified Bilateral lower extremity edema- Primary Morbid (severe) obesity due to excess calories ([facility]) Body mass index (BMI) 45.0-49.9, adult ([facility]) Pre-diabetes Other abnormal glucose Bilateral lower extremity edema- Primary Essential (primary) hypertension ([facility]) Unspecified essential hypertension Allergic rhinitis, unspecified OSMANY (obstructive sleep apnea) Obstructive sleep apnea (adult) (pediatric) Primary hypertension ([facility]) Unspecified essential hypertension Morbid obesity ([facility]) Morbid obesity Acute cystitis without hematuria- Primary Tobacco dependence Tobacco use disorder Needs flu shot Need for prophylactic vaccination and inoculation against influenza Morbid obesity ([facility]) Morbid obesity Well woman exam with routine gynecological exam- Primary Routine gynecological examination Morbid obesity ([facility]) Morbid obesity Metabolic encephalopathy- Primary OSMANY (obstructive sleep apnea) Obstructive sleep apnea (adult) (pediatric) Morbid obesity ([facility]) Morbid obesity Bilateral lower extremity edema Tobacco dependence Tobacco use disorder Bipolar disorder with severe depression ([facility]) At risk for polypharmacy Anxiety Anxiety state, unspecified Primary hypertension ([facility]) Unspecified essential hypertension Right bundle branch block (RBBB) determined by electrocardiography Metabolic encephalopathy- Primary Memory change Memory loss Altered mental status, unspecified altered mental status type Concentration deficit PTSD (post-traumatic stress disorder) ([facility]) Posttraumatic stress disorder Bipolar affective disorder, remission status unspecified ([facility]) Family history of dementia Family history of other neurological diseases 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[facility]) OSMANY (obstructive sleep apnea) Obstructive sleep [...] Morbid obesity ([facility]) Morbid obesity Yeast infection of the skin Candidiasis of skin and nails Tobacco dependence Tobacco use disorder Mood disorder ([facility]/HCC) Unspecified episodic mood disorder Primary hypertension ([facility]) Unspecified essential hypertension Left hip pain Pain in joint, pelvic region and thigh Open wound of anterior abdominal wall, initial encounter Primary hypertension ([facility]/HCC)- Primary Unspecified essential hypertension Yeast infection of the skin Candidiasis of skin and nails Morbid obesity ([facility]) Morbid obesity Primary hypertension ([facility])- Primary Unspecified essential hypertension Allergic rhinitis, unspecified Acute cough Morbid obesity ([facility]) Morbid obesity Former cigarette smoker Personal history of tobacco use, presenting hazards to health Toxic metabolic encephalopathy- Primary Hemiparesis, right ([facility]) Unspecified hemiplegia affecting unspecified side Acute respiratory failure with hypoxia ([facility]) Heart murmur Undiagnosed cardiac murmurs Primary hypertension ([facility]) Unspecified essential hypertension Morbid obesity ([facility]) Morbid obesity Bipolar disorder with severe depression ([facility]) Slurred speech Other speech disturbance Bilateral lower extremity edema- Primary Primary hypertension ([facility]) Unspecified essential hypertension Lower extremity edema Edema Essential (primary) hypertension ([facility]) Unspecified essential hypertension Gastro-esophageal reflux disease without esophagitis Allergic rhinitis, unspecified Bilateral lower extremity edema- Primary Morbid (severe) obesity due to excess calories ([facility]) Body mass index (BMI) 45.0-49.9, adult ([facility]) Pre-diabetes Other abnormal glucose Bilateral lower extremity edema- Primary Essential (primary) hypertension ([facility]) Unspecified essential hypertension Allergic rhinitis, unspecified OSMANY (obstructive sleep apnea) Obstructive sleep apnea (adult) (pediatric) Primary hypertension ([facility]) Unspecified essential hypertension Morbid obesity ([facility]) Morbid obesity Acute cystitis without hematuria- Primary Tobacco dependence Tobacco use disorder Needs flu shot Need for prophylactic vaccination and inoculation against influenza Morbid obesity ([facility]/HCC) Morbid obesity Well woman exam with routine gynecological exam- Primary Routine gynecological examination Morbid obesity ([facility]/HCC) Morbid obesity Metabolic encephalopathy- Primary OSMANY (obstructive sleep apnea) Obstructive sleep apnea (adult) (pediatric) Morbid obesity ([facility]/HCC) Morbid obesity Bilateral lower extremity edema Tobacco dependence Tobacco use disorder Bipolar disorder with severe depression ([facility]) At risk for polypharmacy Anxiety Anxiety state, unspecified Primary hypertension ([facility]) Unspecified essential hypertension Right bundle branch block (RBBB) determined by electrocardiography Transient alteration of awareness- Primary Restless leg Restless legs syndrome (RLS) documented in this encounter [facility] HealthcareEvaluation note* Diagnosis Encounter for annual wellness visit (AWV) in Medicare patient- Primary OSMANY (obstructive sleep apnea) Obstructive sleep apnea (adult) (pediatric) Chronic pain disorder Chronic pain syndrome Gastroesophageal reflux disease, unspecified whether esophagitis present Overactive bladder Hypertonicity of bladder Lower extremity edema Edema Pre-diabetes Other abnormal glucose Morbid obesity ([facility]/HCC) Morbid obesity Yeast infection of the skin Candidiasis of skin and nails Tobacco dependence Tobacco use disorder Mood disorder (CMS/HCC) Unspecified episodic mood disorder Primary hypertension ([facility]) Unspecified essential hypertension Left hip pain Pain in joint, pelvic region and thigh Open wound of anterior abdominal wall, initial encounter Primary hypertension ([facility]/HCC)- Primary Unspecified essential hypertension Yeast infection of the skin Candidiasis of skin and nails Morbid obesity ([facility]/HCC) Morbid obesity Primary hypertension ([facility])- Primary Unspecified essential hypertension Allergic rhinitis, unspecified Acute cough Morbid obesity ([facility]) Morbid obesity Former cigarette smoker Personal history of tobacco use, presenting hazards to health Toxic metabolic encephalopathy- Primary Hemiparesis, right ([facility]) Unspecified hemiplegia affecting unspecified side Acute respiratory failure with hypoxia ([facility]) Heart murmur Undiagnosed cardiac murmurs Primary hypertension ([facility]) [facility]specified essential hypertension Morbid obesity ([facility]) Morbid obesity Bipolar disorder with severe depression ([facility]) Slurred speech Other speech disturbance Bilateral lower extremity edema- Primary Primary hypertension ([facility]) Unspecified essential hypertension Lower extremity edema Edema Essential (primary) hypertension ([facility]) Unspecified essential hypertension Gastro-esophageal reflux disease without esophagitis Allergic rhinitis, unspecified Bilateral lower extremity edema- Primary Morbid (severe) obesity due to excess calories ([facility]) Body mass index (BMI) 45.0-49.9, adult ([facility]) Pre-diabetes Other abnormal glucose Bilateral lower extremity edema- Primary Essential (primary) hypertension ([facility]/HCC) Unspecified essential hypertension Allergic rhinitis, unspecified OSMANY (obstructive sleep apnea) Obstructive sleep apnea (adult) (pediatric) Primary hypertension ([facility]/HCC) Unspecified essential hypertension Morbid obesity ([facility]) Morbid obesity Acute cystitis without hematuria- Primary Tobacco dependence Tobacco use disorder Needs flu shot Need for prophylactic vaccination and inoculation against influenza Morbid obesity (CMS/HCC) Morbid obesity Well woman exam with routine gynecological exam- Primary Routine gynecological examination Morbid obesity ([facility]/HCC) Morbid obesity Metabolic encephalopathy- Primary OSMANY (obstructive sleep apnea) Obstructive sleep apnea (adult) (pediatric) Morbid obesity ([facility]/HCC) Morbid obesity Bilateral lower extremity edema Tobacco dependence Tobacco use disorder Bipolar disorder with severe depression ([facility]) At risk for polypharmacy Anxiety Anxiety state, unspecified Primary hypertension ([facility]) Unspecified essential hypertension Right bundle branch block (RBBB) determined by electrocardiography Primary hypertension ([facility])- Primary Unspecified essential hypertension Chronic kidney disease, stage 3a (HCC) ([facility]) Morbid (severe) obesity due to excess calories ([facility]) Body mass index (BMI) 45.0-49.9, adult ([facility]) OSMANY (obstructive sleep apnea) Obstructive sleep apnea (adult) (pediatric) Hemiparesis, right ([facility]) Unspecified hemiplegia affecting unspecified side Gastroesophageal reflux disease, unspecified whether esophagitis present Metabolic encephalopathy Essential (primary) hypertension ([facility]) Unspecified essential hypertension Allergic rhinitis, unspecified Gastro-esophageal reflux disease without esophagitis Bilateral lower extremity edema documented in this encounter [facility] HealthcareEvaluation note* Diagnosis Encounter for annual wellness visit (AWV) in Medicare patient- Primary OSMANY (obstructive sleep apnea) Obstructive sleep apnea (adult) (pediatric) Chronic pain disorder Chronic pain syndrome Gastroesophageal reflux disease, unspecified whether esophagitis present Overactive bladder Hypertonicity of bladder Lower extremity edema Edema Pre-diabetes Other abnormal glucose Morbid obesity ([facility]) Morbid obesity Yeast infection of the skin Candidiasis of skin and nails Tobacco dependence Tobacco use disorder Mood disorder ([facility]) Unspecified episodic mood disorder Primary hypertension ([facility]) Unspecified essential hypertension Left hip pain Pain in joint, pelvic region and thigh Open wound of anterior abdominal wall, initial encounter Primary hypertension ([facility])- Primary Unspecified essential hypertension Yeast infection of the skin Candidiasis of skin and nails Morbid obesity ([facility] Morbid obesity Primary hypertension ([facility])- Primary Unspecified essential hypertension Allergic rhinitis, unspecified Acute cough Morbid obesity ([facility]) Morbid obesity Former cigarette smoker Personal history of tobacco use, presenting hazards to health Toxic metabolic encephalopathy- Primary Hemiparesis, right ([facility]) Unspecified hemiplegia affecting unspecified side Acute respiratory failure with hypoxia ([facility]) Heart murmur Undiagnosed cardiac murmurs Primary hypertension ([facility]) Unspecified essential hypertension Morbid obesity ([facility] Morbid obesity Bipolar disorder with severe depression ([facility]) Slurred speech Other speech disturbance Bilateral lower extremity edema- Primary Primary hypertension ([facility]) Unspecified essential hypertension Lower extremity edema Edema Essential (primary) hypertension ([facility]) Unspecified essential hypertension Gastro-esophageal reflux disease without esophagitis Allergic rhinitis, unspecified Bilateral lower extremity edema- Primary Morbid (severe) obesity due to excess calories ([facility]) Body mass index (BMI) 45.0-49.9, adult ([facility]) Pre-diabetes Other abnormal glucose Bilateral lower extremity edema- Primary Essential (primary) hypertension ([facility]) Unspecified essential hypertension Allergic rhinitis, unspecified OSMANY (obstructive sleep apnea) Obstructive sleep apnea (adult) (pediatric) Primary hypertension ([facility]) Unspecified essential hypertension Morbid obesity ([facility]) Morbid obesity Acute cystitis without hematuria- Primary Tobacco dependence Tobacco use disorder Needs flu shot Need for prophylactic vaccination and inoculation against influenza Morbid obesity ([facility]) Morbid obesity Well woman exam with routine gynecological exam- Primary Routine gynecological examination Morbid obesity ([facility]) Morbid obesity Metabolic encephalopathy- Primary OSMANY (obstructive sleep apnea) Obstructive sleep apnea (adult) (pediatric) Morbid obesity ([facility]) Morbid obesity Bilateral lower extremity edema Tobacco dependence Tobacco use disorder Bipolar disorder with severe depression ([facility]) At risk for polypharmacy Anxiety Anxiety state, unspecified Primary hypertension ([facility] Unspecified essential hypertension Right bundle branch block (RBBB) determined by electrocardiography Primary hypertension ([facility])- Primary Unspecified essential hypertension Chronic kidney disease, stage 3a (HCC) ([facility]) Morbid (severe) obesity due to excess calories ([facility]) Body mass index (BMI) 45.0-49.9, adult ([facility]) OSMANY (obstructive sleep apnea) Obstructive sleep apnea (adult) (pediatric) Hemiparesis, right ([facility]) Unspecified hemiplegia affecting unspecified side Gastroesophageal reflux disease, unspecified whether esophagitis present Metabolic encephalopathy Essential (primary) hypertension ([facility]) Unspecified essential hypertension Allergic rhinitis, unspecified Gastro-esophageal reflux disease without esophagitis Bilateral lower extremity edema 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 ([facility])- Primary OSMANY (obstructive sleep apnea) Obstructive sleep apnea (adult) (pediatric) Metabolic encephalopathy Restless leg Restless legs syndrome (RLS) Degeneration of intervertebral disc of lumbar region with discogenic back pain and lower extremity pain documented in this encounter [facility] HealthcareEvaluation note* Diagnosis Encounter for [...] Allergic rhinitis, unspecified Acute cough Morbid obesity ([facility]/HCC) Morbid obesity Former cigarette smoker Personal history of tobacco use, presenting hazards to health Toxic metabolic encephalopathy- Primary Hemiparesis, right (CMS/[facility]) Unspecified hemiplegia affecting unspecified side Acute respiratory failure with hypoxia ([facility]) Heart murmur Undiagnosed cardiac murmurs Primary hypertension ([facility]/HCC) Unspecified essential hypertension Morbid obesity ([facility]/HCC) Morbid obesity Bipolar disorder with severe depression ([facility]) Slurred speech Other speech disturbance Bilateral lower extremity edema- Primary Primary hypertension ([facility]/HCC) Unspecified essential hypertension Lower extremity edema Edema Essential (primary) hypertension ([facility]/HCC) Unspecified essential hypertension Gastro-esophageal reflux disease without esophagitis Allergic rhinitis, unspecified Bilateral lower extremity edema- Primary Morbid (severe) obesity due to excess calories ([facility]) Body mass index (BMI) 45.0-49.9, adult ([facility]) Pre-diabetes Other abnormal glucose Bilateral lower extremity edema- Primary Essential (primary) hypertension (CMS/HCC) Unspecified essential hypertension Allergic rhinitis, unspecified OSMANY (obstructive sleep apnea) Obstructive sleep apnea (adult) (pediatric) Primary hypertension (CMS/HCC) Unspecified essential hypertension Morbid obesity (CMS/HCC) Morbid obesity Acute cystitis without hematuria- Primary Tobacco dependence Tobacco use disorder Needs flu shot Need for prophylactic vaccination and inoculation against influenza Morbid obesity (CMS/[facility]) Morbid obesity Well woman exam with routine gynecological exam- Primary Routine gynecological examination Morbid obesity ([facility]/HCC) Morbid obesity Metabolic encephalopathy- Primary OSMANY (obstructive sleep apnea) Obstructive sleep apnea (adult) (pediatric) Morbid obesity ([facility]/HCC) Morbid obesity Bilateral lower extremity edema Tobacco dependence Tobacco use disorder Bipolar disorder with severe depression ([facility]) At risk for polypharmacy Anxiety Anxiety state, unspecified Primary hypertension ([facility]) Unspecified essential hypertension Right bundle branch block (RBBB) determined by electrocardiography Primary hypertension ([facility])- Primary Unspecified essential hypertension Chronic kidney disease, stage 3a (HCC) ([facility]) Morbid (severe) obesity due to excess calories ([facility]) Body mass index (BMI) 45.0-49.9, adult ([facility]) OSMANY (obstructive sleep apnea) Obstructive sleep apnea (adult) (pediatric) Hemiparesis, right ([facility]) Unspecified hemiplegia affecting unspecified side Gastroesophageal reflux disease, unspecified whether esophagitis present Metabolic encephalopathy Essential (primary) hypertension ([facility]) Unspecified essential hypertension Allergic rhinitis, unspecified Gastro-esophageal reflux disease without esophagitis Bilateral lower extremity edema Restless leg Restless legs syndrome (RLS) documented in this encounter [facility] HealthcareEvaluation note* Diagnosis Encounter for annual wellness visit (AWV) in Medicare patient- Primary OSMANY (obstructive sleep apnea) Obstructive sleep apnea (adult) (pediatric) Chronic pain disorder Chronic pain syndrome Gastroesophageal reflux disease, unspecified whether esophagitis present Overactive bladder Hypertonicity of bladder Lower extremity edema Edema Pre-diabetes Other abnormal glucose Morbid obesity ([facility] Morbid obesity Yeast infection of the skin Candidiasis of skin and nails Tobacco dependence Tobacco use disorder Mood disorder ([facility]) Unspecified episodic mood disorder Primary hypertension ([facility]) Unspecified essential hypertension Left hip pain Pain in joint, pelvic region and thigh Open wound of anterior abdominal wall, initial encounter Primary hypertension ([facility])- Primary Unspecified essential hypertension Yeast infection of the skin Candidiasis of skin and nails Morbid obesity ([facility]) Morbid obesity Primary hypertension ([facility])- Primary Unspecified essential hypertension Allergic rhinitis, unspecified Acute cough Morbid obesity ([facility]) Morbid obesity Former cigarette smoker Personal history of tobacco use, presenting hazards to health Toxic metabolic encephalopathy- Primary Hemiparesis, right ([facility]) Unspecified hemiplegia affecting unspecified side Acute respiratory failure with hypoxia ([facility]) Heart murmur Undiagnosed cardiac murmurs Primary hypertension ([facility]) Unspecified essential hypertension Morbid obesity ([facility] Morbid obesity Bipolar disorder with severe depression ([facility]) Slurred speech Other speech disturbance Bilateral lower extremity edema- Primary Primary hypertension ([facility]) Unspecified essential hypertension Lower extremity edema Edema Essential (primary) hypertension ([facility]) Unspecified essential hypertension Gastro-esophageal reflux disease without esophagitis Allergic rhinitis, unspecified Bilateral lower extremity edema- Primary Morbid (severe) obesity due to excess calories ([facility]) Body mass index (BMI) 45.0-49.9, adult ([facility]) Pre-diabetes Other abnormal glucose Bilateral lower extremity edema- Primary Essential (primary) hypertension ([facility]) Unspecified essential hypertension Allergic rhinitis, unspecified OSMANY (obstructive sleep apnea) Obstructive sleep apnea (adult) (pediatric) Primary hypertension ([facility]) Unspecified essential hypertension Morbid obesity ([facility]) Morbid obesity Acute cystitis without hematuria- Primary Tobacco dependence Tobacco use disorder Needs flu shot Need for prophylactic vaccination and inoculation against influenza Morbid obesity ([facility]) Morbid obesity Well woman exam with routine gynecological exam- Primary Routine gynecological examination Morbid obesity ([facility]) Morbid obesity Metabolic encephalopathy- Primary OSMANY (obstructive sleep apnea) Obstructive sleep apnea (adult) (pediatric) Morbid obesity ([facility]) Morbid obesity Bilateral lower extremity edema Tobacco dependence Tobacco use disorder Bipolar disorder with severe depression ([facility]) At risk for polypharmacy Anxiety Anxiety state, unspecified Primary hypertension ([facility]) Unspecified essential hypertension Right bundle branch block (RBBB) determined by electrocardiography Primary hypertension ([facility])- Primary Unspecified essential hypertension Chronic kidney disease, stage 3a (HCC) ([facility]) Morbid (severe) obesity due to excess calories ([facility]) Body mass index (BMI) 45.0-49.9, adult ([facility]) OSMANY (obstructive sleep apnea) Obstructive sleep apnea (adult) (pediatric) Hemiparesis, right ([facility]) Unspecified hemiplegia affecting unspecified side Gastroesophageal reflux disease, unspecified whether esophagitis present Metabolic encephalopathy Essential (primary) hypertension ([facility]) Unspecified essential hypertension Allergic rhinitis, unspecified Gastro-esophageal reflux disease without esophagitis Bilateral lower extremity edema URI, acute- Primary Acute upper respiratory infections of unspecified site documented in this encounter [facility] HealthcareEvaluation note* Diagnosis Encounter for annual [...] (CMS/HCC) Unspecified episodic mood disorder Primary hypertension ([facility]/HCC) Unspecified essential hypertension Left hip pain Pain in joint, pelvic region and thigh Open wound of anterior abdominal wall, initial encounter Primary hypertension ([facility]/HCC)- Primary Unspecified essential hypertension Yeast infection of the skin Candidiasis of skin and nails Morbid obesity ([facility]/HCC) Morbid obesity Primary hypertension ([facility]/HCC)- Primary Unspecified essential hypertension Allergic rhinitis, unspecified Acute cough Morbid obesity ([facility]) Morbid obesity Former cigarette smoker Personal history of tobacco use, presenting hazards to health Toxic metabolic encephalopathy- Primary Hemiparesis, right ([facility]) Unspecified hemiplegia affecting unspecified side Acute respiratory failure with hypoxia ([facility]) Heart murmur Undiagnosed cardiac murmurs Primary hypertension ([facility]) Unspecified essential hypertension Morbid obesity ([facility] Morbid obesity Bipolar disorder with severe depression ([facility]) Slurred speech Other speech disturbance Bilateral lower extremity edema- Primary Primary hypertension ([facility]/HCC) Unspecified essential hypertension Lower extremity edema Edema Essential (primary) hypertension ([facility]) Unspecified essential hypertension Gastro-esophageal reflux disease without esophagitis Allergic rhinitis, unspecified Bilateral lower extremity edema- Primary Morbid (severe) obesity due to excess calories ([facility]) Body mass index (BMI) 45.0-49.9, adult ([facility]) Pre-diabetes Other abnormal glucose Bilateral lower extremity edema- Primary Essential (primary) hypertension ([facility]/HCC) Unspecified essential hypertension Allergic rhinitis, unspecified OSMANY (obstructive sleep apnea) Obstructive sleep apnea (adult) (pediatric) Primary hypertension ([facility]/HCC) Unspecified essential hypertension Morbid obesity ([facility]) Morbid obesity Acute cystitis without hematuria- Primary Tobacco dependence Tobacco use disorder Needs flu shot Need for prophylactic vaccination and inoculation against influenza Morbid obesity (CMS/HCC) Morbid obesity Well woman exam with routine gynecological exam- Primary Routine gynecological examination Morbid obesity (CMS/HCC) Morbid obesity Metabolic encephalopathy- Primary OSMANY (obstructive sleep apnea) Obstructive sleep apnea (adult) (pediatric) Morbid obesity ([facility]/HCC) Morbid obesity Bilateral lower extremity edema Tobacco dependence Tobacco use disorder Bipolar disorder with severe depression ([facility]) At risk for polypharmacy Anxiety Anxiety state, unspecified Primary hypertension ([facility]) Unspecified essential hypertension Right bundle branch block (RBBB) determined by electrocardiography Primary hypertension ([facility])- Primary Unspecified essential hypertension Chronic kidney disease, stage 3a (HCC) ([facility]) Morbid (severe) obesity due to excess calories ([facility]) Body mass index (BMI) 45.0-49.9, adult ([facility]) OSMANY (obstructive sleep apnea) Obstructive sleep apnea (adult) (pediatric) Hemiparesis, right ([facility]) Unspecified hemiplegia affecting unspecified side Gastroesophageal reflux disease, unspecified whether esophagitis present Metabolic encephalopathy Essential (primary) hypertension ([facility]) Unspecified essential hypertension Allergic rhinitis, unspecified Gastro-esophageal reflux disease without esophagitis Bilateral lower extremity edema OSMANY (obstructive sleep apnea)- Primary Obstructive sleep apnea (adult) (pediatric) Restless leg Restless legs syndrome (RLS) 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[facility]) Concentration deficit documented in this encounter [facility] HealthcareEvaluation note* Diagnosis Encounter for annual wellness visit (AWV) in Medicare patient- Primary OSMANY (obstructive sleep apnea) Obstructive sleep apnea (adult) (pediatric) Chronic pain disorder Chronic pain syndrome Gastroesophageal reflux disease, unspecified whether esophagitis present Overactive bladder Hypertonicity of bladder Lower extremity edema Edema Pre-diabetes Other abnormal glucose Morbid obesity ([facility]) Morbid obesity Yeast infection of the skin Candidiasis of skin and nails Tobacco dependence Tobacco use disorder Mood disorder ([facility]/HCC) Unspecified episodic mood disorder Primary hypertension ([facility]) Unspecified essential hypertension Left hip pain Pain in joint, pelvic region and thigh Open wound of anterior abdominal wall, initial encounter Primary hypertension ([facility]/HCC)- Primary Unspecified essential hypertension Yeast infection of the skin Candidiasis of skin and nails Morbid obesity ([facility]/HCC) Morbid obesity Primary hypertension ([facility]/HCC)- Primary Unspecified essential hypertension Allergic rhinitis, unspecified Acute cough Morbid obesity ([facility]) Morbid obesity Former cigarette smoker Personal history of tobacco use, presenting hazards to health Toxic metabolic encephalopathy- Primary Hemiparesis, right ([facility]) Unspecified hemiplegia affecting unspecified side Acute respiratory failure with hypoxia ([facility]) Heart murmur Undiagnosed cardiac murmurs Primary hypertension ([facility] Unspecified essential hypertension Morbid obesity ([facility] Morbid obesity Bipolar disorder with severe depression ([facility]) Slurred speech Other speech disturbance Bilateral lower extremity edema- Primary Primary hypertension ([facility]/HCC) Unspecified essential hypertension Lower extremity edema Edema Essential (primary) hypertension ([facility]) Unspecified essential hypertension Gastro-esophageal reflux disease without esophagitis Allergic rhinitis, unspecified Bilateral lower extremity edema- Primary Morbid (severe) obesity due to excess calories ([facility]) Body mass index (BMI) 45.0-49.9, adult ([facility]) Pre-diabetes Other abnormal glucose Bilateral lower extremity edema- Primary Essential (primary) hypertension ([facility]) Unspecified essential hypertension Allergic rhinitis, unspecified OSMANY (obstructive sleep apnea) Obstructive sleep apnea (adult) (pediatric) Primary hypertension ([facility]) Unspecified essential hypertension Morbid obesity ([facility]) Morbid obesity Acute cystitis without hematuria- Primary Tobacco dependence Tobacco use disorder Needs flu shot Need for prophylactic vaccination and inoculation against influenza Morbid obesity ([facility]) Morbid obesity Well woman exam with routine gynecological exam- Primary Routine gynecological examination Morbid obesity ([facility]) Morbid obesity Metabolic encephalopathy- Primary OSMANY (obstructive sleep apnea) Obstructive sleep apnea (adult) (pediatric) Morbid obesity ([facility]) Morbid obesity Bilateral lower extremity edema Tobacco dependence Tobacco use disorder Bipolar disorder with severe depression ([facility]) At risk for polypharmacy Anxiety Anxiety state, unspecified Primary hypertension ([facility]) Unspecified essential hypertension Right bundle branch block (RBBB) determined by electrocardiography Primary hypertension ([facility])- Primary Unspecified essential hypertension Chronic kidney disease, stage 3a (HCC) ([facility]) Morbid (severe) obesity due to excess calories ([facility]) Body mass index (BMI) 45.0-49.9, adult ([facility]) OSMANY (obstructive sleep apnea) Obstructive sleep apnea (adult) (pediatric) Hemiparesis, right ([facility]) Unspecified hemiplegia affecting unspecified side Gastroesophageal reflux disease, unspecified whether esophagitis present Metabolic encephalopathy Essential (primary) hypertension ([facility]) Unspecified essential hypertension Allergic rhinitis, unspecified Gastro-esophageal reflux disease without esophagitis Bilateral lower extremity edema Primary hypertension ([facility])- Primary Unspecified essential hypertension Morbid (severe) obesity due to excess calories ([facility] [facility]/HCC) Essential (primary) hypertension (CMS/HCC) Unspecified essential hypertension Allergic rhinitis, unspecified Gastro-esophageal reflux disease without esophagitis Bilateral lower extremity edema Bronchitis Bronchitis, not specified as acute or chronic documented in this encounter [facility] HealthcareEvaluation note* Diagnosis Encounter for [...] (CMS/HCC) Unspecified episodic mood disorder Primary hypertension ([facility]) Unspecified essential hypertension Left hip pain Pain in joint, pelvic region and thigh Open wound of anterior abdominal wall, initial encounter Primary hypertension ([facility]/HCC)- Primary Unspecified essential hypertension Yeast infection of the skin Candidiasis of skin and nails Morbid obesity ([facility]/HCC) Morbid obesity Primary hypertension ([facility])- Primary Unspecified essential hypertension Allergic rhinitis, unspecified Acute cough Morbid obesity ([facility]) Morbid obesity Former cigarette smoker Personal history of tobacco use, presenting hazards to health Toxic metabolic encephalopathy- Primary Hemiparesis, right ([facility]) Unspecified hemiplegia affecting unspecified side Acute respiratory failure with hypoxia ([facility]) Heart murmur Undiagnosed cardiac murmurs Primary hypertension ([facility]/HCC) Unspecified essential hypertension Morbid obesity ([facility]) Morbid obesity Bipolar disorder with severe depression ([facility]) Slurred speech Other speech disturbance Bilateral lower extremity edema- Primary Primary hypertension ([facility]/HCC) Unspecified essential hypertension Lower extremity edema Edema Essential (primary) hypertension ([facility]) Unspecified essential hypertension Gastro-esophageal reflux disease without esophagitis Allergic rhinitis, unspecified Bilateral lower extremity edema- Primary Morbid (severe) obesity due to excess calories ([facility]) Body mass index (BMI) 45.0-49.9, adult ([facility]) Pre-diabetes Other abnormal glucose Bilateral lower extremity edema- Primary Essential (primary) hypertension (CMS/HCC) Unspecified essential hypertension Allergic rhinitis, unspecified OSMANY (obstructive sleep apnea) Obstructive sleep apnea (adult) (pediatric) Primary hypertension (CMS/HCC) Unspecified essential hypertension Morbid obesity (CMS/HCC) Morbid obesity Well woman exam with routine gynecological exam- Primary Routine gynecological examination Morbid obesity ([facility]/HCC) Morbid obesity Metabolic encephalopathy- Primary OSMANY (obstructive sleep apnea) Obstructive sleep apnea (adult) (pediatric) Morbid obesity ([facility]/HCC) Morbid obesity Bilateral lower extremity edema Tobacco dependence Tobacco use disorder Bipolar disorder with severe depression ([facility]) At risk for polypharmacy Anxiety Anxiety state, unspecified Primary hypertension ([facility]) Unspecified essential hypertension Right bundle branch block (RBBB) determined by electrocardiography Primary hypertension ([facility])- Primary Unspecified essential hypertension Chronic kidney disease, stage 3a (HCC) ([facility]) Morbid (severe) obesity due to excess calories ([facility]) Body mass index (BMI) 45.0-49.9, adult ([facility]) OSMANY (obstructive sleep apnea) Obstructive sleep apnea (adult) (pediatric) Hemiparesis, right ([facility]) Unspecified hemiplegia affecting unspecified side Gastroesophageal reflux disease, unspecified whether esophagitis present Metabolic encephalopathy Essential (primary) hypertension ([facility]) Unspecified essential hypertension Allergic rhinitis, unspecified Gastro-esophageal reflux disease without esophagitis Bilateral lower extremity edema Primary hypertension ([facility])- Primary Unspecified essential hypertension Morbid (severe) obesity due to excess calories ([facility]) Essential (primary) hypertension ([facility]) Unspecified essential hypertension Allergic rhinitis, unspecified Gastro-esophageal reflux disease without esophagitis Bilateral lower extremity edema Bronchitis Bronchitis, not specified as acute or chronic Primary hypertension ([facility]/HCC)- Primary Unspecified essential hypertension Bronchitis Bronchitis, not specified as acute or chronic Bilateral lower extremity edema Morbid (severe) obesity due to excess calories ([facility]) Pre-diabetes Other abnormal glucose Allergic rhinitis, unspecified seasonality, unspecified trigger Encounter for screening mammogram for malignant neoplasm of breast Former cigarette smoker Personal history of tobacco use, presenting hazards to health documented in this encounter [facility] HealthcareEvaluation note* Diagnosis Encounter for annual wellness visit (AWV) in Medicare patient- Primary OSMANY (obstructive sleep apnea) Obstructive sleep apnea (adult) (pediatric) Chronic pain disorder Chronic pain syndrome Gastroesophageal reflux disease, unspecified whether esophagitis present Overactive bladder Hypertonicity of bladder Lower extremity edema Edema Pre-diabetes Other abnormal glucose Morbid obesity ([facility]-HCC) Morbid obesity Yeast infection of the skin Candidiasis of skin and nails Tobacco dependence Tobacco use disorder Mood disorder Unspecified episodic mood disorder Primary hypertension Unspecified essential hypertension Left hip pain Pain in joint, pelvic region and thigh Open wound of anterior abdominal wall, initial encounter Primary hypertension- Primary Unspecified essential hypertension Yeast infection of the skin Candidiasis of skin and nails Morbid obesity ([facility]) Morbid obesity Primary hypertension- Primary Unspecified essential hypertension Allergic rhinitis, unspecified Acute cough Morbid obesity ([facility]) Morbid obesity Former cigarette smoker Personal history of tobacco use, presenting hazards to health Toxic metabolic encephalopathy- Primary Hemiparesis, right (HCC) Unspecified hemiplegia affecting unspecified side Acute respiratory failure with hypoxia ([facility]) Heart murmur Undiagnosed cardiac murmurs Primary hypertension Unspecified essential hypertension Morbid obesity ([facility]) Morbid obesity Bipolar disorder with severe depression ([facility]) Slurred speech Other speech disturbance Bilateral lower extremity edema- Primary Primary hypertension Unspecified essential hypertension Lower extremity edema Edema Essential (primary) hypertension Unspecified essential hypertension Gastro-esophageal reflux disease without esophagitis Allergic rhinitis, unspecified Bilateral lower extremity edema- Primary Morbid (severe) obesity due to excess calories ([facility]) Body mass index (BMI) 45.0-49.9, adult ([facility]) Pre-diabetes Other abnormal glucose Bilateral lower extremity edema- Primary Essential (primary) hypertension Unspecified essential hypertension Allergic rhinitis, unspecified OSMANY (obstructive sleep apnea) Obstructive sleep apnea (adult) (pediatric) Primary hypertension Unspecified essential hypertension Morbid obesity ([facility]) Morbid obesity Well woman exam with routine gynecological exam- Primary Routine gynecological examination Morbid obesity ([facility] [place]) Morbid obesity Metabolic encephalopathy- Primary OSMANY (obstructive sleep apnea) Obstructive sleep apnea (adult) (pediatric) Morbid obesity ([facility] [place]) Morbid obesity Bilateral lower extremity edema Tobacco dependence Tobacco use disorder Bipolar disorder with severe depression ([facility]) At risk for polypharmacy Anxiety Anxiety state, unspecified Primary hypertension Unspecified essential hypertension Right bundle branch block (RBBB) determined by electrocardiography Primary hypertension- Primary Unspecified essential hypertension Chronic kidney disease, stage 3a ([facility] [place]) Morbid (severe) obesity due to excess calories ([facility]) Body mass index (BMI) 45.0-49.9, adult ([facility] [place]) OSMANY (obstructive sleep apnea) Obstructive sleep apnea (adult) (pediatric) Hemiparesis, right (HCC) Unspecified hemiplegia affecting unspecified side Gastroesophageal reflux disease, unspecified whether esophagitis present Metabolic encephalopathy Essential (primary) hypertension Unspecified essential hypertension Allergic rhinitis, unspecified Gastro-esophageal reflux disease without esophagitis Bilateral lower extremity edema Primary hypertension- Primary Unspecified essential hypertension Morbid (severe) obesity due to excess calories ([facility]) Essential (primary) hypertension Unspecified essential hypertension Allergic rhinitis, unspecified Gastro-esophageal reflux disease without esophagitis Bilateral lower extremity edema Bronchitis Bronchitis, not specified as acute or chronic Primary hypertension- Primary Unspecified essential hypertension Bronchitis Bronchitis, not specified as acute or chronic Bilateral lower extremity edema Morbid (severe) obesity due to excess calories ([facility]-HCC) Pre-diabetes Other abnormal glucose Allergic rhinitis, unspecified seasonality, unspecified trigger Encounter for screening mammogram for malignant neoplasm of breast Former cigarette smoker Personal history of tobacco use, presenting hazards to health Disorientation- Primary Other general symptoms Essential (primary) hypertension Unspecified essential hypertension Allergic rhinitis, unspecified seasonality, unspecified trigger Gastro-esophageal reflux disease without esophagitis Bilateral lower extremity edema OSMANY (obstructive sleep apnea) Obstructive sleep apnea (adult) (pediatric) Primary hypertension Unspecified essential hypertension Osteoporosis, unspecified osteoporosis type, unspecified pathological fracture presence documented in this encounter [facility] HealthcareEvaluation note* Diagnosis Encounter for annual wellness visit (AWV) in Medicare patient- Primary OSMANY (obstructive sleep apnea) Obstructive sleep apnea (adult) (pediatric) Chronic pain disorder Chronic pain syndrome Gastroesophageal reflux disease, unspecified whether esophagitis present Overactive bladder Hypertonicity of bladder Lower extremity edema Edema Pre-diabetes Other abnormal glucose Morbid obesity ([facility]) Morbid obesity Yeast infection of the skin Candidiasis of skin and nails Tobacco dependence Tobacco use disorder Mood disorder Unspecified episodic mood disorder Primary hypertension Unspecified essential hypertension Left hip pain Pain in joint, pelvic region and thigh Open wound of anterior abdominal wall, initial encounter Primary hypertension- Primary Unspecified essential hypertension Yeast infection of the skin Candidiasis of skin and nails Morbid obesity ([facility]-HCC) Morbid obesity Primary hypertension- Primary Unspecified essential hypertension Allergic rhinitis, unspecified Acute cough Morbid obesity ([facility]-HCC) Morbid obesity Former cigarette smoker Personal history of tobacco use, presenting hazards to health Toxic metabolic encephalopathy- Primary Hemiparesis, right (HCC) Unspecified hemiplegia affecting unspecified side Acute respiratory failure with hypoxia ([facility]) Heart murmur Undiagnosed cardiac murmurs Primary hypertension Unspecified essential hypertension Morbid obesity ([facility]-HCC) Morbid obesity Bipolar disorder with severe depression ([facility]) Slurred speech Other speech disturbance Bilateral lower extremity edema- Primary Primary hypertension Unspecified essential hypertension Lower extremity edema Edema Essential (primary) hypertension Unspecified essential hypertension Gastro-esophageal reflux disease without esophagitis Allergic rhinitis, unspecified Bilateral lower extremity edema- Primary Morbid (severe) obesity due to excess calories ([facility] [place]) Body mass index (BMI) 45.0-49.9, adult ([facility] [place]) Pre-diabetes Other abnormal glucose Bilateral lower extremity edema- Primary Essential (primary) hypertension Unspecified essential hypertension Allergic rhinitis, unspecified OSMANY (obstructive sleep apnea) Obstructive sleep apnea (adult) (pediatric) Primary hypertension Unspecified essential hypertension Morbid obesity ([facility] [place]) Morbid obesity Well woman exam with routine gynecological exam- Primary Routine gynecological examination Morbid obesity ([facility] [place]) Morbid obesity Metabolic encephalopathy- Primary OSMANY (obstructive sleep apnea) Obstructive sleep apnea (adult) (pediatric) Morbid obesity ([facility] [place]) Morbid obesity Bilateral lower extremity edema Tobacco dependence Tobacco use disorder Bipolar disorder with severe depression ([facility]) At risk for polypharmacy Anxiety Anxiety state, unspecified Primary hypertension Unspecified essential hypertension Right bundle branch block (RBBB) determined by electrocardiography Primary hypertension- Primary Unspecified essential hypertension Chronic kidney disease, stage 3a ([facility] [place]) Morbid (severe) obesity due to excess calories ([facility] [place]) Body mass index (BMI) 45.0-49.9, adult ([facility] [place]) OSMANY (obstructive sleep apnea) Obstructive sleep apnea (adult) (pediatric) Hemiparesis, right ([facility]) Unspecified hemiplegia affecting unspecified side Gastroesophageal reflux disease, unspecified whether esophagitis present Metabolic encephalopathy Essential (primary) hypertension Unspecified essential hypertension Allergic rhinitis, unspecified Gastro-esophageal reflux disease without esophagitis Bilateral lower extremity edema Primary hypertension- Primary Unspecified essential hypertension Morbid (severe) obesity due to excess calories ([facility] [place]) Essential (primary) hypertension Unspecified essential hypertension Allergic rhinitis, unspecified Gastro-esophageal reflux disease without esophagitis Bilateral lower extremity edema Bronchitis Bronchitis, not specified as acute or chronic Primary hypertension- Primary Unspecified essential hypertension Bronchitis Bronchitis, not specified as acute or chronic Bilateral lower extremity edema Morbid (severe) obesity due to excess calories ([facility] [place]) Pre-diabetes Other abnormal glucose Allergic rhinitis, unspecified seasonality, unspecified trigger Encounter for screening mammogram for malignant neoplasm of breast Former cigarette smoker Personal history of tobacco use, presenting hazards to health Disorientation- Primary Other general symptoms Essential (primary) hypertension Unspecified essential hypertension Allergic rhinitis, unspecified seasonality, unspecified trigger Gastro-esophageal reflux disease without esophagitis Bilateral lower extremity edema OSMANY (obstructive sleep apnea) Obstructive sleep apnea (adult) (pediatric) Primary hypertension Unspecified essential hypertension Osteoporosis, unspecified osteoporosis type, unspecified pathological fracture presence Right knee pain, unspecified chronicity- Primary Primary osteoarthritis of right knee Morbid obesity ([facility]) Morbid obesity documented in this encounter [facility] HealthcareEvaluation note* Diagnosis Encounter for annual wellness visit (AWV) in Medicare patient- Primary OSMANY (obstructive sleep apnea) Obstructive sleep apnea (adult) (pediatric) Chronic pain disorder Chronic pain syndrome Gastroesophageal reflux disease, unspecified whether esophagitis present Overactive bladder Hypertonicity of bladder Lower extremity edema Edema Pre-diabetes Other abnormal glucose Morbid obesity ([facility]) Morbid obesity Yeast infection of the skin Candidiasis of skin and nails Tobacco dependence Tobacco use disorder Mood disorder Unspecified episodic mood disorder Primary hypertension Unspecified essential hypertension Left hip pain Pain in joint, pelvic region and thigh Open wound of anterior abdominal wall, initial encounter Primary hypertension- Primary Unspecified essential hypertension Yeast infection of the skin Candidiasis of skin and nails Morbid obesity ([facility]) Morbid obesity Primary hypertension- Primary Unspecified essential hypertension Allergic rhinitis, unspecified Acute cough Morbid obesity ([facility] [place]) Morbid obesity Former cigarette smoker Personal history of tobacco use, presenting hazards to health Toxic metabolic encephalopathy- Primary Hemiparesis, right (HCC) Unspecified hemiplegia affecting unspecified side Acute respiratory failure with hypoxia ([facility]) Heart murmur Undiagnosed cardiac murmurs Primary hypertension Unspecified essential hypertension Morbid obesity ([facility]) Morbid obesity Bipolar disorder with severe depression ([facility]) Slurred speech Other speech disturbance Bilateral lower extremity edema- Primary Primary hypertension Unspecified essential hypertension Lower extremity edema Edema Essential (primary) hypertension Unspecified essential hypertension Gastro-esophageal reflux disease without esophagitis Allergic rhinitis, unspecified Bilateral lower extremity edema- Primary Morbid (severe) obesity due to excess calories ([facility] [place]) Body mass index (BMI) 45.0-49.9, adult ([facility] [place]) Pre-diabetes Other abnormal glucose Bilateral lower extremity edema- Primary Essential (primary) hypertension Unspecified essential hypertension Allergic rhinitis, unspecified OSMANY (obstructive sleep apnea) Obstructive sleep apnea (adult) (pediatric) Primary hypertension Unspecified essential hypertension Morbid obesity ([facility] [place]) Morbid obesity Well woman exam with routine gynecological exam- Primary Routine gynecological examination Morbid obesity ([facility]) Morbid obesity Metabolic encephalopathy- Primary OSMANY (obstructive sleep apnea) Obstructive sleep apnea (adult) (pediatric) Morbid obesity ([facility] [place]) Morbid obesity Bilateral lower extremity edema Tobacco dependence Tobacco use disorder Bipolar disorder with severe depression (HCC) At risk for polypharmacy Anxiety Anxiety state, unspecified Primary hypertension Unspecified essential hypertension Right bundle branch block (RBBB) determined by electrocardiography Primary hypertension- Primary Unspecified essential hypertension Chronic kidney disease, stage 3a ([facility]) Morbid (severe) obesity due to excess calories ([facility]) Body mass index (BMI) 45.0-49.9, adult ([facility]) OSMANY (obstructive sleep apnea) Obstructive sleep apnea (adult) (pediatric) Hemiparesis, right (HCC) Unspecified hemiplegia affecting unspecified side Gastroesophageal reflux disease, unspecified whether esophagitis present Metabolic encephalopathy Essential (primary) hypertension Unspecified essential hypertension Allergic rhinitis, unspecified Gastro-esophageal reflux disease without esophagitis Bilateral lower extremity edema Primary hypertension- Primary Unspecified essential hypertension Morbid (severe) obesity due to excess calories ([facility]) Essential (primary) hypertension Unspecified essential hypertension Allergic rhinitis, unspecified Gastro-esophageal reflux disease without esophagitis Bilateral lower extremity edema Bronchitis Bronchitis, not specified as acute or chronic Primary hypertension- Primary Unspecified essential hypertension Bronchitis Bronchitis, not specified as acute or chronic Bilateral lower extremity edema Morbid (severe) obesity due to excess calories ([facility]) Pre-diabetes Other abnormal glucose Allergic rhinitis, unspecified seasonality, unspecified trigger Encounter for screening mammogram for malignant neoplasm of breast Former cigarette smoker Personal history of tobacco use, presenting hazards to health Disorientation- Primary Other general symptoms Essential (primary) hypertension Unspecified essential hypertension Allergic rhinitis, unspecified seasonality, unspecified trigger Gastro-esophageal reflux disease without esophagitis Bilateral lower extremity edema OSMANY (obstructive sleep apnea) Obstructive sleep apnea (adult) (pediatric) Primary hypertension Unspecified essential hypertension Osteoporosis, unspecified osteoporosis type, unspecified pathological fracture presence Well woman exam with routine gynecological exam- Primary Routine gynecological examination Morbid (severe) obesity due to excess calories ([facility]) Primary hypertension Unspecified essential hypertension Anemia, unspecified type Bilateral lower extremity edema Osteoporosis, unspecified osteoporosis type, unspecified pathological fracture presence Chronic kidney disease, stage 3a ([facility]) Pre-diabetes Other abnormal glucose documented in this encounter [facility] Healthcare[facility] and physical note Author Jace Graham [facility] March 23, 2023 11:21am Note Date/Time March 23, 2023 11:21am [facility] [address] [place] [address] Gastroenterology H&P Signed Patient: Michelle Be MR#: [id number] : 1960 Acct:[id number] Age/Sex: 62 / F Adm Date: 3 Loc: Room: Type: [facility] Attending Dr: Jace Graham MD Copies to: MD Adelaida Plummer, BRIANA-C~ Date of Service: 03/23/2023 HISTORY & PHYSICAL: [...] <Electronically signed by Jace Graham MD> 03/23/231120 [facility] Work Phone: History general Narrative - [...] see above surg Hospitalization History stroke 2018 [facility] Other Hospital Discharge instructions Additional Instructions Regular Diet No Activity [facility]ions[facility] Work Phone: Hospital Discharge instructions Additional [...] FOLLOW UP & RECOMMENDATIONS: -Follow-up with Dr. Grahma as needed -Notify the doctor if you have any problems. -Repeat colonoscopy in 10 years. -Follow up with PCP. -Office number [phone].[facility] Work Phone: Reason for visit Narrative* Consultation (Routine) - Closed Specialty Diagnoses / Procedures Referred By Radha t Referred To Contact Neuropsychology Diagnoses Memory change Procedures [place] OFFICE/OUTPATIENT [facility] Juany Ramirez PA [address] [place] [address] Phone: tel: fax: David Foster, PhD [address] [address] Phone: tel: fax: Referral ID Status Reason Start Date Expiration Date V isits Requested Visits Authorized [id number] Closed Specialty Services Required 03/07/2024 09/03/2024 1 1 [facility] Summary Purpose Family History Relationship Condition Age at Onset Recorded Date/T savita Not Specified Diabetes mellitus Unknown father Hypertension Unknown father Sick sinus syndrome Unknown Advance Directives Advance Directive Response Recorded Date/ Time Advance Directives No May 7:44pm Advance Directive Response Recorded Date/ Time Advance Directives No May 6:44pm Documents on File Type Date Recorded Patient Supervisor Ovens Expl anation Power of Brazer Electronic 03/10/2024 3:12 PM POA Documents on File Type Date Recorded Patient Supervisor Ovens Expl anation Power of [place]er Electronic 03/10/2024 3:12 PM POA Documents on File Type Date Recorded Patient Supervisor Ovens Expl anation Power of [place] Electronic 03/16/2024 9:42 AM darian r of accounting manager controller Power of Brazer Electronic 03/10/2024 3:12 PM POA Documents on File Type Date Recorded Patient Supervisor Ovens Expl anation Power of [place]er Electronic 03/16/2024 9:42 AM darian r of accounting manager controller Power of Brazer Electronic 03/10/2024 3:12 PM POA Chief Complaint and Reason for Visit Chief Complaint Bipolar Depression Reason for Visit Allergies Bipolar 2 disorder Hypertension Morbid obesity with BMI of 45.0-49.9, adult OSMANY (obstructive sleep apnea) Restless legs syndrome Chief Complaint Screening Additional Source Comments INFORMATION SOURCE (unrecogn ized section and content) DATE CREATED AUTHOR 02/18/2019 [facility] DATE CREATED AUTHOR AUTHOR'S ORGANIZ ATION 11/15/2021 [facility] DATE CREATED AUTHOR AUTHOR'S ORGANIZ ATION 08/16/2022 [facility] DATE CREATED AUTHOR AUTHOR'S ORGANIZ ATION 10/09/2024 [facility] DATE CREATED AUTHOR AUTHOR'S ORGANIZ ATION 10/23/2024 [facility] DATE CREATED AUTHOR AUTHOR'S ORGANIZ ATION 11/11/2024 [facility] DATE CREATED AUTHOR AUTHOR'S ORGANIZ ATION 11/13/2024 [facility] EPIC Care Teams (unrecognized [...] MD Other Provider Active Adelaida Marsh , AUDIT OFFICER Other Provider Active Jessica Murillo , DO Other Provider Active Obdulio Bragg MD Other Provider Active Joon Cristina , DO Other Provider Active Torin Robert MD Other Provider Active Dawn Barrera MD Other Provider Active Mari Soler , ANP-BC Other Provider Active Sofi Almaznar MD Other Provider Active Sharad Gallegos MD Other Provider Active Aby Cain MD Other Provider Active Hillary Carrera MD Other Provider Active Julio César Mckeon , DO Other Provider Active Valentine Mak MD Other Provider Active Raymond Strong MD Other Provider Active Joellen Le , BRIANA-C Other Provider Active Severo Yancey MD Other Provider Active Rao Webber MD Other Provider Active Yuan Shi MD Other Provider Active Delroy Ramirez MD Other Provider Active Berta Comer , DO Other Provider Active Negrito Ruiz , DO Other Provider Active Lacho M Miniaci , DO Other Provider Active Rachana Hobson , AUDIT OFFICER Other Provider Active Rob Lake , DO Other Provider Active Jeff Alvarez MD Other Provider Active Urmila Rinaldi , AUDIT OFFICER Other Provider Active Bina Mayberry , AUDIT OFFICER Other Provider Active Mir Bradford MD Other Provider Active Te Da Silva MD Other Provider Active Debra Landaverde , JOHANN Other Provider Active Team Status: Inactive Member Role Status Dates Adelaida Carrion Primary Care Provider Active Jace Graham MD Attending Provider Active Change Control Manager Relationship Specialty Start Date End Date José Luis Roberts MD [address] [place] [address] PCP - General Family Medicine 05/18/23 Adelaida Carrion NP [address] [place] [address] Referring Physician Nurse Practitioner 10/14/22 Change Control Manager Relationship Specialty Start Date End Date José Luis Roberts MD [address] [place] [address] PCP - General Family Medicine 05/18/23 Adelaida Carrion NP [address] [place] [address] Referring Physician Nurse Practitioner 10/14/22 Change Control Manager Relationship Specialty Start Date End Date José Luis Roberts MD [address] [place] [address] PCP - General Family Medicine 05/18/23 Adelaida Carrion NP [address] [place] [address] Referring Physician Nurse Practitioner 10/14/22 Change Control Manager Relationship Specialty Start Date End Date José Luis Roberts MD [address] [place] [place] [address] PCP - General Family Medicine 05/18/23 Adelaida Carrion NP Referring Physician Nurse Practitioner 10/14/22 Miriam Suarez DO [address] [place], [place] [address] Referring Physician Neurology 06/29/23 [place] LPN Licensed Practical Nurse Family Medicine 12/18/23 Change Control Manager Relationship Specialty Start Date End Date José Luis Roberts MD [address] [place] [address] PCP - General Family Medicine 05/18/23 Adelaida Carrion NP Referring Physician Nurse Practitioner 10/14/22 Miriam Suarez DO [address] [place] [address] Referring Physician Neurology 06/29/23 [place] LPN Licensed Practical Nurse Family Medicine 12/18/23 Change Control Manager Relationship Specialty Start Date End Date Unallocated, Familias MD Mar[address] [place] [address] PCP - General Family Medicine 01/27/24 Miriam Suarez DO [address] [place] [address] Referring Physician Neurology 06/29/23 [place] LPN Licensed Practical Nurse Family Medicine 12/18/23 Adelaida Carrion, BRIANA [address] [place] [address] Nurse Practitioner Family Medicine 01/27/24 Change Control Manager Relationship Specialty Start Date End Date Unallocated, Geeta Sierra MD [address] [place] [address] PCP - General Family Medicine 01/27/24 Miriam Suarez DO [address] [place] [address] Referring Physician Neurology 06/29/23 [place] LPN Licensed Practical Nurse Family Medicine 12/18/23 Adelaida Carrion, BRIANA [address] [place] [address] Nurse Practitioner Family Medicine 01/27/24 Change Control Manager Relationship Specialty Start Date End Date José Luis Roberts MD [address] [place] [address] PCP - General Family Medicine 02/02/24 Miriam Suarez DO [address] [place] [address] Referring Physician Neurology 06/29/23 [place] LPN Licensed Practical Nurse Family Medicine 12/18/23 Adelaida Carrion, BRIANA [address] [place] [address] Nurse Practitioner Family Medicine 01/27/24 Change Control Manager Relationship Specialty Start Date End Date José Luis Roberts MD [address] [place] [address] PCP - General Family Medicine 02/02/24 Miriam Suarez DO [address] [place] [address] Referring Physician Neurology 06/29/23 Adelaida Carrion NP [address] [place] [address] Nurse Practitioner Family Medicine 01/27/24 Bong Rosado MA Family Medicine 02/12/24 Change Control Manager Relationship Specialty Start Date End Date José Luis Roberts MD [address] [place] [address] PCP - General Family Medicine 02/02/24 Miriam Suarez DO [address] [place], [place] [address] Referring Physician Neurology 06/29/23 Adelaida Carrion, BRIANA [address] [place] [address] Nurse Practitioner Family Medicine 01/27/24 Bong Rosado MA Family Medicine 02/12/24 Change Control Manager Relationship Specialty Start Date End Date José Luis Roberts MD [address] [place] [address] PCP - General Family Medicine 02/02/24 Miriam Suarez DO [address] [place], [place] [address] Referring Physician Neurology 06/29/23 Adelaida Carrion NP [address] [place] [address] Nurse Practitioner Family Medicine 01/27/24 Bong Rosado MA Family Medicine 02/12/24 Change Control Manager Relationship Specialty Start Date End Date José Luis Roberts MD [address] [place] [address] PCP - General Family Medicine 02/02/24 Miriam Suarez DO [address] [place], [place] [address] Referring Physician Neurology 06/29/23 Aedlaida Carrion NP [address] [place] [address] Nurse Practitioner Family Medicine 01/27/24 Bong Rosado MA Family Medicine 02/12/24 Change Control Manager Relationship Specialty Start Date End Date José Luis Roberts MD [address] [place] [address] PCP - General Family Medicine 02/02/24 Miriam Suarez DO [address] [place] [address] Referring Physician Neurology 06/29/23 Adelaida Carrion NP [address] [place] [address] Nurse Practitioner Family Medicine 01/27/24 Bong Rosado MA Family Medicine 02/12/24 Change Control Manager Relationship Specialty Start Date End Date José Luis Roberts MD [address] [place] [address] PCP - General Family Medicine 02/02/24 Miriam Suarez DO [address] [place] [address] Referring Physician Neurology 06/29/23 Adelaida Carrion NP [address] [place] [address] Nurse Practitioner Family Medicine 01/27/24 Bong Rosado MA Family Medicine 02/12/24 Change Control Manager Relationship Specialty Start Date End Date José Luis Roberts MD [address] [place] [address] PCP - General Family Medicine 02/02/24 Miriam Suarez DO [address] [place], [place] [address] Referring Physician Neurology 06/29/23 Adelaida Carrion, BRIANA [address] [place] [address] Nurse Practitioner Family Medicine 01/27/24 Bong Rosado MA Family Medicine 02/12/24 Change Control Manager Relationship Specialty Start Date End Date José Luis Roberts MD [address] [place] [address] PCP - General Family Medicine 02/02/24 Miriam Suarez DO [address] [place], [place] [address] Referring Physician Neurology 06/29/23 Adelaida Carrion NP [address] [place] [address] Nurse Practitioner Family Medicine 01/27/24 Bong Rosado MA Family Medicine 02/12/24 Change Control Manager Relationship Specialty Start Date End Date José Luis Roberts MD [address] [place] [address] PCP - General Family Medicine 02/02/24 Miriam Suarez DO [address] [place], [place] [address] Referring Physician Neurology 06/29/23 Adelaida Carrion NP [address] [place] [address] Nurse Practitioner Family Medicine 01/27/24 Bong Roasdo MA Family Medicine 02/12/24 Change Control Manager Relationship Specialty Start Date End Date José Luis Roberts MD [address] [place] [address] PCP - General Family Medicine 02/02/24 Miriam Suarez DO [address] [place] [address] Referring Physician Neurology 06/29/23 Adelaida Carrion NP [address] [place] [address] Nurse Practitioner Family Medicine 01/27/24 Bong Rosado MA Family Medicine 02/12/24 Change Control Manager Relationship Specialty Start Date End Date José Luis Roberts MD [address] [place] [address] PCP - General Family Medicine 02/02/24 Miriam Suarez DO [address] [place] [address] Referring Physician Neurology 06/29/23 Adelaida Carrion NP [address] [place] [address] Nurse Practitioner Family Medicine 01/27/24 Bong Rosado MA Family Medicine 02/12/24 Change Control Manager Relationship Specialty Start Date End Date José Luis Roberts MD [address] [place] [address] PCP - General Family Medicine 05/18/23 Adelaida Carrion NP Referring Physician Nurse Practitioner 10/14/22 Miriam Suarez DO [address], [place] [address] Referring Physician Neurology 06/29/23 Mathew Parra LPN Licensed Practical Nurse Family Medicine 07/23/23 Change Control Manager Relationship Specialty Start Date End Date José Luis Roberts MD [address] [place] [address] PCP - General Family Medicine 05/18/23 Adelaida Carrion NP Referring Physician Nurse Practitioner 10/14/22 Miriam Suarez DO [address] [place] [address] Referring Physician Neurology 06/29/23 Mathew Parra LPN Licensed Practical Nurse Family Medicine 07/23/23 Change Control Manager Relationship Specialty Start Date End Date José Luis Roberts MD [address] [place] [address] PCP - General Family Medicine 05/18/23 Adelaida Carrion NP Referring Physician Nurse Practitioner 10/14/22 Miriam Suarez DO [address] [place] [address] Referring Physician Neurology 06/29/23 Mathew Parra LPN Licensed Practical Nurse Family Medicine 07/23/23 Change Control Manager Relationship Specialty Start Date End Date José Luis Roberts MD [address] [place] [address] PCP - General Family Medicine 05/18/23 Adelaida Carrion NP Referring Physician Nurse Practitioner 10/14/22 Miriam Suarez DO [address] [place] [address] Referring Physician Neurology 06/29/23 Mathew Parra LPN Licensed Practical Nurse Family Medicine 07/23/23 Change Control Manager Relationship Specialty Start Date End Date José Luis Roberts MD [address] [place] [address] PCP - General Family Medicine 05/18/23 Adelaida Carrion NP Referring Physician Nurse Practitioner 10/14/22 Miriam Suarez DO [address] [place] [address] Referring Physician Neurology 06/29/23 [place] LPN Licensed Practical Nurse Family Medicine 12/18/23 Change Control Manager Relationship Specialty Start Date End Date José Luis Roberts MD [address] [place] [address] PCP - General Family Medicine 05/18/23 Adelaida Carrion NP Referring Physician Nurse Practitioner 10/14/22 Miriam Suarez DO [address] [place], [place] [address] Referring Physician Neurology 06/29/23 [place] LPN Licensed Practical Nurse Family Medicine 12/18/23 Change Control Manager Relationship Specialty Start Date End Date José Luis Roberts MD [address] [place] [address] PCP - General Family Medicine 05/18/23 Adelaida Carrion NP Referring Physician Nurse Practitioner 10/14/22 Miriam Suarez DO [address] [place] [address] Referring Physician Neurology 06/29/23 [place] LPN Licensed Practical Nurse Family Medicine 12/18/23 Change Control Manager Relationship Specialty Start Date End Date José Luis Roberts MD [address] [place] [address] PCP - General Family Medicine 02/02/24 Miriam Suarez DO [address] [place] [address] Referring Physician Neurology 06/29/23 Adelaida Carrion, BRIANA [address] [place] [address] Nurse Practitioner Family Medicine 01/27/24 Bong Rosado MA Family Medicine 02/12/24 Change Control Manager Relationship Specialty Start Date End Date José Luis Roberts MD [address] [place] [address] PCP - General Family Medicine 02/02/24 Miriam Suarez DO [address] [place], [place] [address] Referring Physician Neurology 06/29/23 Adelaida Carrion, BRIANA [address] [place] [address] Nurse Practitioner Family Medicine 01/27/24 Bong Rosado MA Family Medicine 02/12/24 Change Control Manager Relationship Specialty Start Date End Date José Luis Roberts MD [address] [place] [address] PCP - General Family Medicine 02/02/24 Miriam Suarez DO [address] [place], [place] [address] Referring Physician Neurology 06/29/23 Adelaida Carrion NP [address] [place] [address] Nurse Practitioner Family Medicine 01/27/24 Bong Rosado MA Family Medicine 02/12/24 Change Control Manager Relationship Specialty Start Date End Date José Luis Roberts MD [address] [place] [address] PCP - General Family Medicine 02/02/24 Miriam Suarez DO [address] [place] [address] Referring Physician Neurology 06/29/23 Adelaida Carrion NP [address] [place] [address] Nurse Practitioner Family Medicine 01/27/24 Bong Rosado MA Family Medicine 02/12/24 Change Control Manager Relationship Specialty Start Date End Date José Luis Roberts MD [address] [place] [address] PCP - General Family Medicine 02/02/24 Miriam Suarez DO [address] [place] [address] Referring Physician Neurology 06/29/23 Adelaida Carrion NP [address] [place] [address] Nurse Practitioner Family Medicine 01/27/24 Bong Rosado MA Family Medicine 02/12/24 Change Control Manager Relationship Specialty Start Date End Date José Luis Roberts MD [address] [place] [address] PCP - General Family Medicine 02/02/24 Miriam Suarez DO [address] [place], [place] [address] Referring Physician Neurology 06/29/23 Adelaida Carrion, BRIANA [address] [place] [address] Nurse Practitioner Family Medicine 01/27/24 Bong Rosado MA Family Medicine 02/12/24 Change Control Manager Relationship Specialty Start Date End Date José Luis Roberts MD [address] [place] [address] PCP - General Family Medicine 02/02/24 Miriam Suarez DO [address] [place], [place] [address] Referring Physician Neurology 06/29/23 Adelaida Carrion, BRIANA [address] [place] [address] Nurse Practitioner Family Medicine 01/27/24 Bong Rosado MA Family Medicine 02/12/24 Juany Leggett PA [address] [place], [place] [address] Physician Wash Barrel Leader Neurology 07/26/24 Change Control Manager Relationship Specialty Start Date End Date José Luis Roberts MD [address] [place] [address] PCP - General Family Medicine 02/02/24 Miriam Suarez DO [address] [place] [address] Referring Physician Neurology 06/29/23 Adelaida Carrion NP [address] [place] [address] Nurse Practitioner Family Medicine 01/27/24 Bong Rosado MA Family Medicine 02/12/24 Juany Leggett PA [address] [place] [address] Physician Wash Barrel Leader Neurology 07/26/24 Change Control Manager Relationship Specialty Start Date End Date José Luis Roberts MD [address] [place] [address] PCP - General Family Medicine 02/02/24 Miriam Suarez DO [address] [place] [address] Referring Physician Neurology 06/29/23 Adelaida Carrion NP [address] [place] [address] Nurse Practitioner Family Medicine 01/27/24 Bong Rosado MA Family Medicine 02/12/24 Juany Leggett PA [address] [place] [address] Physician Wash Barrel Leader Neurology 07/26/24 Change Control Manager Relationship Specialty Start Date End Date José Luis Roberts MD [address] [place] [address] PCP - General Family Medicine 02/02/24 Miriam Suarez DO [address] [place] [address] Referring Physician Neurology 06/29/23 Adelaida Carrion NP [address] [place] [address] Nurse Practitioner Family Medicine 01/27/24 Bong Rosado MA Family Medicine 02/12/24 Juany Leggett PA [address] [place] [address] Physician Wash Barrel Leader Neurology 07/26/24 Change Control Manager Relationship Specialty Start Date End Date José Luis Roberts MD [address] [place] [address] PCP - General Family Medicine 02/02/24 Miriam Suarez DO [address] [place] [address] Referring Physician Neurology 06/29/23 Adelaida Carrion NP [address] [place] [address] Nurse Practitioner Family Medicine 01/27/24 Bong Rosado MA Family Medicine 02/12/24 Juany Leggett PA [address] [place], [place] [address] Physician Wash Barrel Leader Neurology 07/26/24 Change Control Manager Relationship Specialty Start Date End Date José Luis Roberts MD [address] [place] [address] PCP - General Family Medicine 02/02/24 Miriam Suarez DO [address] [place] [address] Referring Physician Neurology 06/29/23 Adelaida Carrion NP [address] [place] [address] Nurse Practitioner Family Medicine 01/27/24 Bong Rosado MA Family Medicine 02/12/24 Juany Leggett PA [address] [place] [address] Physician Wash Barrel Leader Neurology 07/26/24 Change Control Manager Relationship Specialty Start Date End Date José Luis Roberts MD [address] [place] [address] PCP - General Family Medicine 02/02/24 Miriam Suarez DO [address] [place], [place] [address] Referring Physician Neurology 06/29/23 Adelaida Carrion NP [address] [place] [address] Nurse Practitioner Family Medicine 01/27/24 Bong Rosado MA [address] [place] [address] Family Medicine 02/12/24 Juany Leggett PA [address] [place] [address] Physician Wash Barrel Leader Neurology 07/26/24 Change Control Manager Relationship Specialty Start Date End Date José Luis Roberts MD [address] [place] [address] PCP - General Family Medicine 02/02/24 Miriam Suarez DO [address] [place] [address] Referring Physician Neurology 06/29/23 Adelaida Carrion NP [address] [place] [address] Nurse Practitioner Family Medicine 01/27/24 Bong Rosado MA [address] [place] [address] Family Medicine 02/12/24 Juany Leggett PA [address] [place] [address] Physician Wash Barrel Leader Neurology 07/26/24 Change Control Manager Relationship Specialty Start Date End Date José Luis Roberts MD [address] [place] [address] PCP - General Family Medicine 02/02/24 Miriam Suarez DO [address] [place] [address] Referring Physician Neurology 06/29/23 Adelaida Carrion NP [address] [place] [address] Nurse Practitioner Family Medicine 01/27/24 Bong Rosado MA [address] [place] [address] Family Medicine 02/12/24 Juany Leggett PA [address] [place] [address] Physician Wash Barrel Leader Neurology 07/26/24 Change Control Manager Relationship Specialty Start Date End Date José Luis Roberts MD [address] [place] [address] PCP - General Family Medicine 02/02/24 Miriam Suarez DO [address] [place] [address] Referring Physician Neurology 06/29/23 Adelaida Carrion NP [address] [place] [address] Nurse Practitioner Family Medicine 01/27/24 Bong Rosado MA [address] [place] [address] Family Medicine 02/12/24 Juany Leggett PA [address] [place] [address] Physician Wash Barrel Leader Neurology 07/26/24 Change Control Manager Relationship Specialty Start Date End Date José Luis Roberts MD [address] [place] [address] PCP - General Family Medicine 02/02/24 Miriam Suarez DO [address] [place] [address] Referring Physician Neurology 06/29/23 Adelaida Carrion, BRIANA [address] [place] [id number] Nurse Practitioner Family Medicine 01/27/24 Bong Rosado MA [address] [place] [address] Family Medicine 02/12/24 Juany Leggett PA [address] [place], [place] [id number] Physician Wash Barrel Leader Neurology 07/26/24 Change Control Manager Relationship Specialty Start Date End Date José Luis Roberts MD [address] [place] [id number] PCP - General Family Medicine 02/02/24 Miriam Suarez DO [address] [place], [place] [id number] Referring Physician Neurology 06/29/23 Adelaida Carrion NP [address] [place] [phone] Nurse Practitioner Family Medicine 01/27/24 Bong Rosado MA [address] [place] [address] Family Medicine 02/12/24 Juany Leggett PA [address] [place], [place] [id number] Physician Wash Barrel Leader Neurology 07/26/24 REASON FOR VISIT (unrecogniz ed section and content) Reason Comments Med Refill Reason Comments Restless Legs Encephalopathy Reason Comments Hospital Follow-up Reason Comments Anxiety Reason Comments Sleep Apnea Reason Onset Date Comments Med Refill 04/12/2024 Reason Comments Encephalopathy Reason Comments Altered Mental Status Reason Comments Hospital Follow-up Reason Comments Diabetes Reason Comments Pain Reason Comments Gynecologic Exam FOR RECORDS PERTAINING TO PATIENTS WHO ARE [...] BE BASED ON THE PRIMARY CLINICAL RECORDS. [facility] [employer] [facility]. provides no warranty or guarantee of the accuracy or completeness of information in this document.
[2024-11-17 11:13] LABS: Age Gdln ACOG Testing Note (.); IGP, Aptima HPV, rfx 16/18,45 Note (.)
== END 2024-11-14 21:24 | disposition home or self-care (01) ==
LOC: LAB 21:23
PROVIDERS: PCP Nurse Practitioner; Visit Provider Nurse Practitioner
DX: Z12.4 Encounter for screening for malignant neoplasm of cervix (principal)
CPT/HCPCS: 87624; 88175

== ENCOUNTER 2024-11-16 10:38 | Outpatient (OUT) | payer MEDICARE, SELFPAY ==
--- OUTSIDE RECORDS SUMMARY | 2024-11-16 10:49 | XMS_ITS | CCD ---
Author Organization [facility] Care Team Providers Care Community Integration Specialist Name Role Phone EBRAHEIM, SUKI Admitting Unavailable EBRAHEIM, SUKI Attending Unavailable AICHHOLZ, ADELAIDA Referring Unavailable AICHHOLZ, ADELAIDA Primary Care Unavailable CO Procedure Practitioner Unavailab SUKI Jacob Surgeon Unavailable CO Procedure Practitioner Unavailab CHAPARRITA Goncalves Surgeon Unavailable BRIDGETTE MACEDO Admitting Unavailable BRIDGETTE MACEDO Attending Unavailable AICHHOLZ, TRAINING AND DEVELOPMENT COORDINATOR ADELAIDA Primary Care Unavailable NIXON ., DR FINA Iverson Admitting Unavailable NIXON ., DR FINA Iverson Attending Unavailable AICHHOLZ, TRAINING AND DEVELOPMENT COORDINATOR ADELAIDA Primary Care Unavailable MCDANIEL ., ZELDA Consulting Unavailable LAKSHMIPATHY ., NARENDRANATH Consulting Paula vailable LAKSHMIPATHY ., NARENDRANATH Admitting Paula vailable LAKSHMIPATHY ., NARENDRANATH Attending Paula vailable AICHHOLZ, TRAINING AND DEVELOPMENT COORDINATOR ADELAIDA Primary Care Unavailable LAKSHMIPATHY ., NARENDRANATH Consulting Paula vailable AICHHOLZ, TRAINING AND DEVELOPMENT COORDINATOR ADELAIDA Primary Care Unavailable MARKER ., DR CHAUDHRY Admitting Unavailable MARKER ., DR CHAUDHRY Attending Unavailable MARKER ., DR CHAUDHRY Consulting Unavailable AICHHOLZ, TRAINING AND DEVELOPMENT COORDINATOR ADELAIDA Admitting Unavailable AICHHOLZ, TRAINING AND DEVELOPMENT COORDINATOR ADELAIDA Attending Unavailable AICHHOLZ, TRAINING AND DEVELOPMENT COORDINATOR ADELAIDA Primary Care Unavailable NIXON ., DR FINA Iverson Admitting Unavailable NIXON ., DR FINA Iverson Attending Unavailable AICHHOLZ, TRAINING AND DEVELOPMENT COORDINATOR ADELAIDA Primary Care Unavailable MCDANIEL ., ZELDA Consulting Unavailable NIXON ., DR FINA Iverson Admitting Unavailable NIXON ., DR FINA Iverson Attending Unavailable AICHHOLZ, TRAINING AND DEVELOPMENT COORDINATOR ADELAIDA Primary Care Unavailable MCDANIEL ., ZELDA Consulting Unavailable AICHHOLZ, TRAINING AND DEVELOPMENT COORDINATOR ADELAIDA Admitting Unavailable AICHHOLZ, TRAINING AND DEVELOPMENT COORDINATOR ADELAIDA Attending Unavailable AICHHOLZ, TRAINING AND DEVELOPMENT COORDINATOR ADELAIDA Primary Care Unavailable AICHHOLZ, TRAINING AND DEVELOPMENT COORDINATOR ADELAIDA Consulting Unavailable AICHOLZ, TRAINING AND DEVELOPMENT COORDINATOR ADELAIDA Admitting Unavailable AICHHOLZ, TRAINING AND DEVELOPMENT COORDINATOR ADELAIDA Attending Unavailable AICHOLZ, [facility] ADELAIDA Primary Care Unavailable AICHHOLZ, TRAINING AND DEVELOPMENT COORDINATOR ADELAIDA Consulting Unavailable MISC, DR COTE Admitting Unavailable MISC, DR COTE Attending Unavailable AICHOLZ, [facility] ADELAIDA Primary Care Unavailable AICHHOLZ, TRAINING AND DEVELOPMENT COORDINATOR ADELAIDA Consulting Unavailable ELYSSA, DR COTE Consulting Unavailable STARR, DR KINGSLEY Atkins Consulting Unavailable NIXON ., DR FINA Iverson Admitting Unavailable NIXON ., DR FINA Iverson Attending Unavailable AICHOLZ, [facility] ADELAIDA Primary Care Unavailable MCDANIEL ., ZELDA Consulting Unavailable NIXON ., DR FINA Iverson Admitting Unavailable NIXON ., DR FINA Iverson Attending Unavailable [facility], [facility] Primary Care Unavailable NIXON ., DR FINA Iverson Consulting Unavailable OMID LAY Consulting Unavailable NIXON ., DR FINA Iverson Admitting Unavailable NIXON ., DR FINA Iverson Attending Unavailable [facility], [facility] Primary Care Unavailable MCDANIEL ., ZELDA Consulting Unavailable [facility], [facility] Primary Care Unavailable HALKER ., ARIAN Admitting Unavailable HALKER ., ARIAN Attending Unavailable LAKSHMIPATHY ., NARENDRANATH Consulting Paula vailable HALKER ., ARIAN Consulting Unavailable LAKSHMIPATHY ., NARENDRANATH Admitting Paula vailable LAKSHMIPATHY ., NARENDRANATH Attending Paula vailable [facility], [facility] Primary Care Unavailable LAKSHMIPATHY ., NARENDRANATH Consulting Paula vailable AICHOLZ, TRAINING AND DEVELOPMENT COORDINATOR ADELAIDA Admitting Unavailable AICHOLZ, TRAINING AND DEVELOPMENT COORDINATOR ADELAIDA Attending Unavailable AICHOLZ, TRAINING AND DEVELOPMENT COORDINATOR ADELAIDA Primary Care Unavailable AICHHOLZ, TRAINING AND DEVELOPMENT COORDINATOR ADELAIDA Consulting Unavailable BRIDGETTE MACEDO Admitting Unavailable BRIDGETTE MACEDO Attending Unavailable AICHOLZ, TRAINING AND DEVELOPMENT COORDINATOR ADELAIDA Primary Care Unavailable STARR, DR KINGSLEY Atkins Consulting Unavailable BRIDGETTE MACEDO Consulting Unavailable GILMER NEVES Admitting Unavailable GILMER NEVES Attending Unavailable PURA, GILMER Consulting Unavailable AICHOLZ, TRAINING AND DEVELOPMENT COORDINATOR ADELAIDA Primary Care Unavailable AICHOLZ, TRAINING AND DEVELOPMENT COORDINATOR ADELAIDA Primary Care Unavailable DR WILLI RINALDI Admitting Unavailable DEEJAY, DR WILLI Atkins Attending Unavailable DR WILLI RINALDI Consulting Unavailable AICHOLZ, TRAINING AND DEVELOPMENT COORDINATOR ADELAIDA Primary Care Unavailable ALMAZ ., DANNY Admitting Unavailable ALMAZ ., DNANY Attending Unavailable DR KINGSLEY CLEMENTS Consulting Unavailable ALMAZ ., DANNY Consulting Unavailable LAKSHMIPATHY ., NARENDRANATH Admitting Paula vailable LAKSHMIPATHY ., NARENDRANATH Attending Paula vailable AICHHOLZ, TRAINING AND DEVELOPMENT COORDINATOR ADELAIDA Primary Care Unavailable AICHHOLZ, TRAINING AND DEVELOPMENT COORDINATOR ADELAIDA Admitting Unavailable AICHHOLZ, TRAINING AND DEVELOPMENT COORDINATOR ADELAIDA Attending Unavailable AICHHOLZ, TRAINING AND DEVELOPMENT COORDINATOR ADELAIDA Primary Care Unavailable AICHHOLZ, TRAINING AND DEVELOPMENT COORDINATOR ADELAIDA Admitting Unavailable AICHHOLZ, TRAINING AND DEVELOPMENT COORDINATOR ADELAIDA Attending Unavailable AICHHOLZ, TRAINING AND DEVELOPMENT COORDINATOR ADELAIDA Primary Care Unavailable AICHHOLZ, TRAINING AND DEVELOPMENT COORDINATOR ADELAIDA Consulting Unavailable ZIEBER, DR KINGSLEY Atkins Consulting Unavailable HALKER ., ARIAN Admitting Unavailable HALKER ., ARIAN Attending Unavailable AICHHOLZ, TRAINING AND DEVELOPMENT COORDINATOR ADELAIDA Primary Care Unavailable Aichholz, Adelaida J Primary Care Provider [phone] MD Gaudencio Monk Admit Provider MD Gaudencio Monk Attending Provider JOHANN Vieira Other Provider Unavailable JOHANN Pina Other Provider Unavailable JOHANN Hurtado Other Provider Unavailable JOHANN Crooks Other Provider Unavailable JOHANN Mejias Other Provider Unavailable JOHANN Kim Other Provider Unavailable MD Walker Pringle Other Provider Dilans, CONCRETE POLISHER Adelaida Huddleston Other Provider [phone] DO Jessica Murillo Other Provider MD Obdulio Bragg Other Provider DO Joon Cristina Other Provider [phone] MD Torin Robert Other Provider MD Dawn Barrera Other Provider Karlene ANP- Mari Other Provider MD Sofi Almanzar Other Provider MD Sharad Gallegos Other Provider MD Aby Cain Other Provider MD Hillary Carrera Other Provider DO Julio César Mckeon Other Provider [phone] MD Valentine Mak Other Provider MD Raymodn Strong Other Provider BRIANA Le-C Joellen Mcnair [...] Provider MD Jace Graham Attending Provider Sheyla AUDIO/VISUAL MANAGER, Adelaida Unavailable José Luis Roberts MD Primary Care Provider Sheyla AUDIO/VISUAL MANAGER, Adelaida Unavailable Daniela GRAHAM, Miriam Unavailable Moises CAMPBELL, Diana Unavailable Unavailable Unallocated , Noms Provider Primary Care Yadirai kellee Sheyla AUDIO/VISUAL MANAGER, Adelaida Unavailable José Luis Roberts MD Primary Care Provider Bong Rosado MA Unavailable Unavailable Aida CAMPBELL, Mathew Unavailable Unavailable Juany Yi Unavailable Bong Rosado MA Unavailable ADELAIDA CARRION J Primary Care Unavailable AKSHAT BLACKWELL Consulting Unavailable Giedraitis , Andrius Sarabiaytmarta Attending Unavailable Giedraitis , Andrius Vytautargelia Attending Unavailable Giedraitis , Andrius Vytautargelia Attending Unavailable Giedraitis , Andrius Vytautargelia Attending Unavailable Giedraitis , Andrius Vytautargelia Attending Unavailable Giedraitis , Andrius Vytautas Attending Unavailable Giedraitis , Andrius Vytautas Attending Unavailable Dat Monkelrahman Admitting Unavailab le Eduardo Monk Attending Unavailab le Aichbob, Adelaida J Primary Care Unavailable Aicjosue, Adelaida J Primary Care Unavailable Rob Lake Attending Unavailable Malinda Rosales Consulting Unavailable Delta Gan Admitting Unavailable David Foster Consulting Unavailable Daniela Miriam Consulting Unavailable Kingsley Livingston Consulting Unavailable Kar Burt Consulting Unavailab Dennis Hicks Consulting Unavailable Juany Caballero Consulting Unavailable Inna Melendez Consulting Unavailable Rocio Duncan Consulting Unavailable Chuck Hinkle Consulting Unavailable ADELAIDA CARRION Attending Unavailable JUANY LEGGETT Attending Unavailable JUANY LEGGETT Attending Unavailable ADELAIDA CARRION Attending Unavailable ADELAIDA CARRION Attending Unavailable ADELAIDA CARRION Attending Unavailable HARRISON HOYOS Referring Unavailable HARRISON HOYOS Attending Unavailable ADELAIDA CARRION Attending Unavailable SONAM BROWN Attending Unavailable JUANY CABALLERO Attending Unavailable AICMarquesHOLNena, ADELAIDA Attending Unavailable AICMarquesHOLNena, ADELAIDA Attending Unavailable SHEYLA, ADELAIDA Attending Unavailable ADOLPH, JUANY Attending Unavailable RACHEL MITCHELL Attending Unavailable DAVID FOSTER Attending Unavailable ADOLPH, JUANY Referring Unavailable AICHHOLZ, ADELAIDA Attending Unavailable RACHEL MITCHELL Referring Unavailable Allergies Allergy Classification Reported Allergen(s) Allergy Type Date of Onset Reaction(s) Facility (7 sources) Adhesive Tape; Translations: [ADHESIVE TAPE] Propensity to adverse reactions (disorder) 04-06-19 14 rash [facility] Repository (3 sources) levETIRAcetam; Translations: [KEPPRA] Drug Allergy 07-02-19 19 [facility] Repository (3 sources) milnacipran; Translations: [SAVELLA] Drug Allergy 03-14-20 13 [facility] Repository (1 source) Penicillin; Translations: [PENICILLIN] Drug Allergy 01-16-20 18 [facility] Repository (5 sources) Prochlorperazin e; Translations: [COMPAZINE] Drug Allergy 03-14-20 13 agitation [facility] Repository (20 sources) Tetracycline; Translations: [TETRACYCLINE] Drug Allergy 04-06-19 13 Hives, Unknown [facility] Repository (4 sources) Penicillins Drug allergy (disorder) 04-06-19 13 Unknown Reaction [facility] Repository (20 sources) levETIRAcetam; Translations: [levetiracetam] Drug Allergy 12-13-19 22 Hallucinations , Other [facility] (20 sources) milnacipran; Translations: [milnacipran] Drug Allergy 12-13-19 22 hives, Hallucinations , Other, Unknown [facility] (20 sources) Prochlorperazin e; Translations: [prochlorperazi ne] Drug Allergy 12-13-19 22 Unknown, Other [facility] (2 sources) Penicillin G Drug Allergy as a child [employer] Other (2 sources) Tetracaine Drug Allergy Unknown [employer] Other (20 sources) Penicillins Drug Intolerance 12-13-[address] [facility] (20 sources) Other Propensity to adverse reactions 12-13-[address] [facility] (20 sources) Wound Dressing Adhesive Drug Allergy 09-20-19 23 Rash, Unknown [facility] (20 sources) Eszopiclone Drug Allergy 09-21-19 24 Hallucinations , Anaphylaxis [facility] (1 source) Penicillin Drug Allergy 03-02-20 [facility] (1 source) Penicillins Drug allergy (disorder) 03-02-20 [facility] (1 source) Tetracaine Drug Allergy 03-02-20 [facility] Repository Medications Current Medications Medication Drug [...] sources) Magnesium 400 MG capsule Pt taking OTC(Get10) Active Magnesium 400 MG capsule magnesium 0 [...] s-Minerals (BARIATRIC MULTIVITAMINS/IRON PO) Pt taking OTC (Qik) Active Multiple Vitamin s-Minerals (BARIATRIC MULTIVITAMINS/IRON PO) Bariatric Multivitamins/Iron 0 Active Bjmepjvtkyvc-Vqw-Yxkt-Fa-Vit K (Bariatric Multivitamins) 45 mg iron- 800 mcg-120 mcg Capsule (2 sources) Start: 11-17-2022 take 1 capsule by mouth once daily Daguqdrhcgdd-Lmm-Apqn-Fa-Vit K (Bariatric Multivitamins) 45 mg iron- 800 mcg-120 mcg Capsule Active 1 CAP PO Daily November 16, 2022 11:00pm Start: 11-17-2022 take 1 capsule by mo uth once daily Jooxefqfqdag-Tqf-Barj-Fa-Vit K (Bariatri c Multivitamins) 45 mg iron- 800 mcg-120 mcg Capsule Active 1 CAP PO Daily November 17, 2022 12:00am nystatin 232860 unt/ml topical cream (20 sources) Polyene Antifungal Start: 03-07-2024 nystatin (M ycostatin) cream 03/07/2024 Active nystatin (Mycost atin) 156864 UNIT/GM powder Apply 1 application topically in [...] Onset: 05-18-1905-18-2023 Chronic Other nervous system disorders (20 sources) [...] 05-18-2023 Episodic Other aftercare (1 source) 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; Translations: [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] Onset: 04-29-2022 Episodic Other [...] - bilat eral GE 2 Viewson 09-29-[address] [address] XRay Report Signed Patient: MICHELLE BE MR#: [id number] : 1960 Acct:[id number] Age/Sex: 63 / F ADM Date: 09/29/24 Loc: [facility] Attending Dr: Elizabeth Culp NP Ordering Physician: Elizabeth Culp NP Date of Service: 09/29/24 Procedure(s): XR hip BHUMI Accession Number(s): [id number] cc: Adelaida Carrion AUDIO/VISUAL MANAGER; Elizabeth Culp NP The [address] [id number] Patient Name: MICHELLE BE MRN: [facility]:[id number] date: 1960 Sex: F Assigned Patient Location: [facility] Current Patient Location: [facility] Accession/Order Number: [id number] Exam Date: 09/29/2024 11:20 Report Date: 09/29/2024 [...] Bernal M.D. 09/29/2024 11:23 AM Dictation Location: [place] [address] Electronically authenticated by: [id number] Y Date: 09/29/2024 11:23 Dictated By: Edith Bernal M.D. Signed By: 09/29/24 1126 DD/ 1123 TD/TT: Behavior Management Specialist: [facility] Radiology, Radiologist, - 09/29/[address] [address] XRay Report Signed Patient: MICHELLE BE MR#: [id number] : 1960 Acct:[id number] Age/Sex: 63 / F ADM Date: 09/29/24 Loc: RAD Attending Dr: Elizabeth Culp NP Ordering Physician: Elizabeth Culp NP Date of Service: 09/29/24 Procedure(s): XR hip BHUMI Accession Number(s): [id number] cc: Adelaida Carrion NP; Elizabeth Culp NP [address] [address] Patient Name: MICHELLE BE MRN: [id number] date: 1960 Sex: F Assigned Patient Location: [facility] Current Patient Location: [facility] Accession/Order Number: [id number] Exam Date: 09/29/2024 11:20 Report Date: 09/29/2024 [...] Bernal M.D. 09/29/2024 11:23 AM Dictation Location: [place] [address] Electronically authenticated by: [id number] Y Date: 09/29/2024 11:23 Dictated By: Edith Bernal M.D. Signed By: 09/29/24 1126 DD/ 1123 TD/TT: Behavior Management Specialist: [facility] Radiology Study observation (narrative) [facility] XR Pelvis AP and Hip - bilat eral GE 2 ViewsOrdered By: Radiologist Radiology on 09-29-2024 [facility] Work Phone: CT LUNG SCREENING LOW DOSEon 09-26-[address] [address] [address] Scan Report Signed Patient: MICHELLE BE MR#: [id number] : 1960 Acct:[id number] Age/Sex: 63 / F ADM Date: 09/26/24 Loc: MAMMO Attending Dr: Adelaida Carrion NP Ordering Physician: Adelaida Carrion NP Date of Service: 09/26/24 Procedure(s): CT lung screening low-dose Accession Number(s): [id number] cc: Adelaida Carrion NP [address] [id number] Patient Name: MICHELLE BE MRN: [id number] date: 1960 Sex: F Assigned Patient Location: [facility] Current Patient Location: RAD Accession/Order Number: [id number] Exam Date: 09/26/2024 16:58 Report Date: 09/26/2024 [...] Guadalupe M.D. 09/26/2024 5:02 PM Dictation Location: [place] [address] Electronically authenticated by: [id number] Y Date: 09/26/2024 17:02 Dictated By: Willi Guadalupe M.D. Signed By: 09/26/241703 DD/ 01 TD/TT: Behavior Management Specialist: [facility] Radiology, Radiologist, MD - 09/26/2024 [place] [address] CT Scan Report Signed Patient: MICHELLE BE MR#: [id number] : 1960 Acct:[id number] Age/Sex: 63 / F ADM Date: 09/26/24 [facility] Dr: Adelaida Carrion NP Ordering Physician: Adelaida Carrion NP Date of Service: 09/26/24 Procedure(s): CT lung screening low-dose Accession Number(s): [id number] cc: Adelaida Carrion NP The [place] [address] Patient Name: MICHELLE BE MRN: [facility]:[id number] date: 1960 Sex: F Assigned Patient Location: [facility] Current Patient Location: RAD Accession/Order Number: [id number] Exam Date: 09/26/2024 16:58 Report Date: 09/26/2024 [...] Guadalupe M.D. 09/26/2024 5:02 PM Dictation Location: [place] [address] Electronically authenticated by: [id number] Y Date: 09/26/2024 17:02 Dictated By: Willi Guadalupe M.D. Signed By: 09/26/241703 DD/ 01 TD/TT: Behavior Management Specialist: [facility] Radiology Study observation (narrative) [facility] CT LUNG SCREENING LOW DOSEOr dered By: Radiologist Radiology on 09-26-2024 [facility] Work Phone: MM TOMOSYNTHESIS SCREENING B Ion 09-26-2024 [place] [address] Mammography Report Signed Patient: MICHELLE BE MR#: [id number] : 1960 Acct:[id number] Age/Sex: 63 / F ADM Date: 09/26/24 Loc: MAMMO Attending Dr: Adelaida Carrion NP Ordering Physician: Adelaida Carrion NP Results: Date of Service: 09/26/24 Follow Up: Procedure(s): MM tomosynthesis screening BI Accession Number(s): [id number] cc: Adelaida Carrion NP Patient Name: MICHELLE BE MR#: [id number] : 1960 Exam Date: 09/26/2024 Ordering Doctor: [...] Treatments None Family Cancers None LOCATION: [facility] BREAST COMPOSITION: There are [...] M.D. Signed By: 09/26/241642 DD/ 41 TD/TT: Behavior Management Specialist: [facility] Radiology, Radiologist, MD - 09/26/2024 [place] [address] Mammography Report Signed Patient: MICHELLE BE MR#: [id number] : 1960 Acct:[id number] Age/Sex: 63 / F ADM Date: 09/26/24 Loc: MAMMO Attending Dr: Adelaida Carrion NP Ordering Physician: Adelaida Carrion NP Results: Date of Service: 09/26/24 Follow Up: Procedure(s): MM tomosynthesis screening BI Accession Number(s): [id number] cc: Adelaida Carrion NP Patient Name: MICHELLE BE MR#: [id number] : 1960 Exam Date: 09/26/2024 Ordering Doctor: LIVIER CARRION TRAINING AND DEVELOPMENT COORDINATOR RADIOLOGY REPORT PROCEDURE: MM TOMOSYNTHESIS SCREENING BI [...] Treatments None Family Cancers None LOCATION: The [facility] BREAST COMPOSITION: There are [...] M.D. Signed By: 09/26/241642 DD/ 41 TD/TT: Behavior Management Specialist: [facility] Radiology Study observation (narrative) [facility] MM TOMOSYNTHESIS SCREENING B IOrdered By: Radiologist Radiology on 09-26-2024 [facility] Work Phone: XR SHOULDER RT MIN 2Von 09-[address] [address] XRay Report Signed Patient: MICHELLE BE MR#: [id number] : 1960 Acct:[id number] Age/Sex: 63 / F ADM Date: 09/26/24 Loc: RAD Attending Dr: Elizabeth Culp NP Ordering Physician: Elizabeth Culp NP Date of Service: 09/26/24 Procedure(s): XR shoulder RT min 2V Accession Number(s): [id number] cc: Adelaida Carrion NP; Elizabeth Culp NP The [address] [id number] Patient Name: MICHELLE BE MRN: [facility]:[id number] date: 1960 Sex: F Assigned Patient Location: [facility] Current Patient Location: [facility] Accession/Order Number: [id number] Exam Date: 09/26/2024 13:34 Report Date: 09/26/2024 [...] Guadalupe M.D. 09/26/2024 1:35 PM Dictation Location: [place] [address] Electronically authenticated by: [id number] Y Date: 09/26/2024 13:35 Dictated By: Willi Guadalupe M.D. Signed By: 09/26/24 1338 DD/ 34 TD/TT: Behavior Management Specialist: [facility] Radiology, Radiologist, - 09/26/[address] [address] XRay Report Signed Patient: MICHELLE BE MR#: [id number] : 1960 Acct:[id number] Age/Sex: 63 / F ADM Date: 09/26/24 Loc: RAD Attending Dr: Elizabeth Culp NP Ordering Physician: Elizabeth Culp NP Date of Service: 09/26/24 Procedure(s): XR shoulder RT min 2V Accession Number(s): [id number] cc: Adelaida Carrion AUDIO/VISUAL MANAGER; Elizabeth Culp NP [address] [address] Patient Name: MICHELLE BE MRN: [id number] date: 1960 Sex: F Assigned Patient Location: [facility] Current Patient Location: [facility] Accession/Order Number: [id number] Exam Date: 09/26/2024 13:34 Report Date: 09/26/2024 [...] Guadalupe M.D. 09/26/2024 1:35 PM Dictation Location: [place] [address] Electronically authenticated by: [id number] Y Date: 09/26/2024 13:35 Dictated By: Willi Guadalupe M.D. Signed By: 09/26/241337 DD/ 34 TD/TT: Behavior Management Specialist: [facility] Radiology Study observation (narrative) [facility] XR SHOULDER RT MIN 2VOrdered By: Radiologist Radiology on 09-26-2024 [facility] Work Phone: HbA1c (Bld) [Mass fraction]o n 08-16-2024 Interpretation and review of laboratory results Normal [facility] Laboratory - Hematology and Cell countson 08-16-2024 HbA1c (Bld) [Mass fraction] 5.6 % [facility] Complete Blood Count Auto Di ffon 03-05-2024 Basophils (Bld) [#/Vol] 0.0 10*3/uL Normal 0.0-0.2 The [facility] Comment on above: Result Comment: PERF ORMED BY: [place] [address] PATHOLOGIST CYBER OPERATOR ADIEL AGUSTIN M.D. Performed By: #### C BC, MG, CMP #### [address] Basophils/100 WBC (Bld) 0.5 % Normal . [facility] Comment on above: Performed By: #### C BC, MG, CMP #### [address] Eosinophils (Bld) [#/Vol] 0.2 10*3/uL Normal 0.0-0.45 [facility] Comment on above: Performed By: #### C BC, MG, CMP #### [address] Eosinophils/100 WBC (Bld) 2.2 % Normal . [facility] Comment on above: Performed By: #### C BC, MG, CMP #### [address] Erythrocyte distribution width (RBC) [Ratio] 14.5 % Normal 11.9-15.3 [facility] Comment on above: Performed By: #### C BC, MG, CMP #### [address] Hematocrit (Bld) [Volume fraction] 43.0 % Normal 34.0-46.4 [facility] Comment on above: Performed By: #### C BC MG, CMP #### [address] Hemoglobin (Bld) [Mass/Vol] 14.3 g/dL Normal 11.8-15.4 [facility] Comment on above: Performed By: #### C BC, MG, CMP #### [address] Lymphocytes (Bld) [#/Vol] 1.8 10*3/uL Normal 1.00-4.8 [facility] Comment on above: Performed By: #### C BC MG, CMP #### [address] Lymphocytes/100 WBC (Bld) 18.9 % Normal . [facility] Comment on above: Performed By: #### C BC MG, CMP #### [address] MCH (RBC) [Entitic mass] 29.0 pg Normal 24.7-34.3 [facility] Comment on above: Performed By: #### C BC MG, CMP #### [address] MCV (RBC) [Entitic vol] 87.0 fL Normal 80-100 [facility] Comment on above: Performed By: #### C BC, MG, CMP #### [address] Mean Corpuscular HGB Conc 33.4 g/dL Normal 32.0-35.0 The [facility] Comment on above: Performed By: #### C BC, MG, CMP #### [address] Monocytes (Bld) [#/Vol] 0.5 10*3/uL Normal 0.0-0.8 The [facility] Comment on above: Performed By: #### C BC, MG, CMP #### [address] [address] [place] [address] [place] Monocytes/100 WBC (Bld) 5.5 % Normal . The [facility] Comment on above: Performed By: #### C BC, MG, CMP #### [facility] [address] [id number] [place] Neutrophils (Bld) [#/Vol] 7.0 10*3/uL Normal 1.8-7.7 The [facility] Comment on above: Performed By: #### C BC, MG, CMP #### [facility] [address] [place] [address] [place] Neutrophils/100 WBC (Bld) 72.9 % Normal . The [facility] Comment on above: Performed By: #### C BC, MG, CMP #### [facility] [address] [place] [address] [place] NRBC% 0.0 /100{WBC} Normal 0-0.5 The [facility] Comment on above: Performed By: #### C BC, MG, CMP #### [facility] [address] [place] [address] [place] Platelet mean volume (Bld) [Entitic vol] 8.9 fL Normal 6.3-10.7 The [facility] Comment on above: Performed By: #### C BC, MG, CMP #### [facility] [address] [address] [place] Platelets (Bld) [#/Vol] 289 10*3/uL Normal 150-450 The [facility] Comment on above: Performed By: #### C BC, MG, CMP #### [facility] [address] [address] [place] RBC (Bld) [#/Vol] 4.94 10*6/uL Normal 3.60-5.00 The [facility] Comment on above: Performed By: #### C BC, MG, CMP #### [facility] [address] [id number] [place] WBC (Bld) [#/Vol] 9.6 10*3/uL Normal 3.8-11.6 The [facility] Comment on above: Performed By: #### C BC, MG, CMP #### [facility] [address] Comprehensive Metabolic Pane [place] 03-05-2024 Albumin [Mass/Vol] 4.4 g/dL Normal 3.5-5.7 The [facility] Comment on above: Performed By: #### C BC, MG, CMP #### [facility] [address] Albumin/Globulin [Mass ratio] 1.3 {ratio} Normal The [facility] Comment on above: Performed By: #### C BC, MG, CMP #### [facility] [address] ALP [Catalytic activity/Vol] 79 U/L Normal 34-104 The [facility] Comment on above: Performed By: #### C BC, MG, CMP #### [address] ALT [Catalytic activity/Vol] 23 U/L Normal 7-52 The [facility] Comment on above: Performed By: #### C BC, MG, CMP #### [address] Anion gap [Moles/Vol] 15.4 mmol/L High 6.0-15.0 [facility] Comment on above: Performed By: #### C BC, MG, CMP #### [address] AST [Catalytic activity/Vol] 36 U/L Normal 13-39 The [facility] Comment on above: Performed By: #### C BC, MG, CMP #### [address] Bilirubin [Mass/Vol] 0.4 mg/dL Normal 0.3-1.0 The [facility] Comment on above: Performed By: #### C BC, MG, CMP #### [facility] [address] Calcium [Mass/Vol] 9.5 mg/dL Normal 8.6-10.3 The [facility] Comment on above: Performed By: #### C BC, MG, CMP #### [facility] [address] [place] [address] [place] Chloride [Moles/Vol] 106 mmol/L Normal 98-107 The [facility] Comment on above: Performed By: #### C BC, MG, CMP #### [facility] [address] CO2 [Moles/Vol] 23.1 mmol/L Normal 21.0-31.0 The [facility] Comment on above: Performed By: #### C BC, MG, CMP #### [facility] [address] Creatinine [Mass/Vol] 0.96 mg/dL Normal 0.60-1.20 The [facility] Comment on above: Performed By: #### C BC, MG, CMP #### [place] [address] [place] Creatinine Clr Calc Pharmacy 84.51 Normal The [facility] Comment on above: Performed By: #### C BC, MG, CMP #### [place] [address] [place] GFR/1.73 sq M.predicted MDRD (S/P/Bld) [Vol rate/Area] mL/min/{1.73_m2} Normal The [facility] Comment on above: Performed By: #### C BC, MG, CMP #### [place] [address] [place] Globulin (S) [Mass/Vol] 3.3 g/dL Normal The [facility] Comment on above: Performed By: #### C BC, MG, CMP #### [facility] [address] [place] [address] [place] Glucose [Mass/Vol] 133 mg/dL High 70-100 The [facility] Comment on above: Result Comment: [place] Glucose Reference Range is dependent on time and content of last meal. Glucose of more than 200 mg/dL in a nonstressed, ambulatory subject supports the diagnosis of Diabetes Mellitus. ADA recommended reference range Performed By: #### C BC, MG, CMP #### [address] Potassium [Moles/Vol] 3.5 mmol/L Normal 3.5-5.1 The [facility] Comment on above: Performed By: #### C BC, MG, CMP #### [address] Protein [Mass/Vol] 7.7 g/dL Normal 6.4-8.9 The [facility] Comment on above: Performed By: #### C BC, MG, CMP #### [address] Sodium [Moles/Vol] 141 mmol/L Normal 136-145 The [facility] Comment on above: Performed By: #### C BC, MG, CMP #### [address] Urea nitrogen [Mass/Vol] 18 mg/dL Normal 7-25 The [facility] Comment on above: Performed By: #### C BC, MG, CMP #### [address] Magnesiumon 03-05-2024 Magnesium [Mass/Vol] 2.0 mg/dL Normal 1.9-2.7 The [facility] Comment on above: Result Comment: PERF ORMED BY: [place] [address] PATHOLOGIST CYBER OPERATOR ADIEL AGUSTIN M.D. Performed By: #### C BC, MG, CMP #### [address] Complete Blood Count Auto Di ffon 03-04-2024 Basophils (Bld) [#/Vol] 0.1 10*3/uL Normal 0.0-0.2 The [facility] Comment on above: Result Comment: PERF ORMED BY: [place] [address] PATHOLOGIST CYBER OPERATOR ADIEL AGUSTIN M.D. Performed By: #### C MP, MG, CBC #### [address] [place] [address] [place] Basophils/100 WBC (Bld) 0.6 % Normal . [facility] Comment on above: Performed By: #### C MP, MG, CBC #### [address] Eosinophils (Bld) [#/Vol] 0.2 10*3/uL Normal 0.0-0.45 The [facility] Comment on above: Performed By: #### C MP, MG, CBC #### [address] Eosinophils/100 WBC (Bld) 1.9 % Normal . [facility] Comment on above: Performed By: #### C MP, MG, CBC #### [address] Erythrocyte distribution width (RBC) [Ratio] 14.6 % Normal 11.9-15.3 The [facility] Comment on above: Performed By: #### C MP, MG, CBC #### [address] Hematocrit (Bld) [Volume fraction] 43.5 % Normal 34.0-46.4 The [facility] Comment on above: Performed By: #### C MP, MG, CBC #### [address] Hemoglobin (Bld) [Mass/Vol] 14.4 g/dL Normal 11.8-15.4 The [facility] Comment on above: Performed By: #### C MP, MG, CBC #### [place] [address] [place] Lymphocytes (Bld) [#/Vol] 1.8 10*3/uL Normal 1.00-4.8 The [facility] Comment on above: Performed By: #### C MP, MG, CBC #### [place] [address] [place] Lymphocytes/100 WBC (Bld) 18.0 % Normal . [facility] Comment on above: Performed By: #### C MP, MG, CBC #### [address] MCH (RBC) [Entitic mass] 28.8 pg Normal 24.7-34.3 The [facility] Comment on above: Performed By: #### C MP, MG, CBC #### [address] MCV (RBC) [Entitic vol] 87.0 fL Normal 80-100 The [facility] Comment on above: Performed By: #### C MP, MG, CBC #### [address] Mean Corpuscular HGB Conc 33.2 g/dL Normal 32.0-35.0 The [facility] Comment on above: Performed By: #### C MP, MG, CBC #### [address] Monocytes (Bld) [#/Vol] 0.8 10*3/uL Normal 0.0-0.8 The [facility] Comment on above: Performed By: #### C MP, MG, CBC #### [address] Monocytes/100 WBC (Bld) 8.2 % Normal . [facility] Comment on above: Performed By: #### C MP, MG, CBC #### [address] Neutrophils (Bld) [#/Vol] 7.3 10*3/uL Normal 1.8-7.7 The [facility] Comment on above: Performed By: #### C MP, MG, CBC #### [address] Neutrophils/100 WBC (Bld) 71.3 % Normal . [facility] Comment on above: Performed By: #### C MP, MG, CBC #### [address] NRBC% 0.1 /100{WBC} Normal 0-0.5 The [facility] Comment on above: Performed By: #### C MP, MG, CBC #### [address] Platelet mean volume (Bld) [Entitic vol] 8.8 fL Normal 6.3-10.7 [facility] Comment on above: Performed By: #### C MP, MG, CBC #### [address] Platelets (Bld) [#/Vol] 334 10*3/uL Normal 150-450 The [facility] Comment on above: Performed By: #### C MP, MG, CBC #### [address] RBC (Bld) [#/Vol] 5.01 10*6/uL High 3.60-5.00 The [facility] Comment on above: Performed By: #### C MP, MG, CBC #### [address] WBC (Bld) [#/Vol] 10.3 10*3/uL Normal 3.8-11.6 The [facility] Comment on above: Performed By: #### C MP, MG, CBC #### [address] Comprehensive Metabolic Pane [place] 03-04-2024 Albumin [Mass/Vol] 4.5 g/dL Normal 3.5-5.7 The [facility] Comment on above: Performed By: #### C MP, MG, CBC #### [address] Albumin/Globulin [Mass ratio] 1.4 {ratio} Normal The [facility] Comment on above: Performed By: #### C MP, MG, CBC #### [address] ALP [Catalytic activity/Vol] 79 U/L Normal 34-104 [facility] Comment on above: Performed By: #### C MP, MG, CBC #### [address] ALT [Catalytic activity/Vol] 19 U/L Normal 7-52 [facility] Comment on above: Performed By: #### C MP, MG, CBC #### [facility] [address] [place] [address] [place] Anion gap [Moles/Vol] 11.4 mmol/L Normal 6.0-15.0 Th e [facility] Comment on above: Performed By: #### C MP, MG, CBC #### [facility] [address] [place] [address] [place] AST [Catalytic activity/Vol] 37 U/L Normal 13-39 The [facility] Comment on above: Performed By: #### C MP, MG, CBC #### [facility] [address] [place] [address] [place] Bilirubin [Mass/Vol] 0.5 mg/dL Normal 0.3-1.0 The [facility] Comment on above: Performed By: #### C MP, MG, CBC #### [facility] [address] [place] [address] [place] Calcium [Mass/Vol] 9.6 mg/dL Normal 8.6-10.3 The [facility] Comment on above: Performed By: #### C MP, MG, CBC #### [facility] [address] [place] [address] [place] Chloride [Moles/Vol] 107 mmol/L Normal 98-107 The [facility] Comment on above: Performed By: #### C MP, MG, CBC #### [facility] [address] [place] [address] [place] CO2 [Moles/Vol] 27.4 mmol/L Normal 21.0-31.0 The [facility] Comment on above: Performed By: #### C MP, MG, CBC #### [facility] [address] [id number] [place] Creatinine [Mass/Vol] 0.91 mg/dL Normal 0.60-1.20 The [facility] Comment on above: Performed By: #### C MP, MG, CBC #### [facility] [address] [id number] [place] Creatinine Clr Calc Pharmacy 90.12 Normal The [facility] Comment on above: Performed By: #### C MP, MG, CBC #### [place] [address] [place] GFR/1.73 sq M.predicted MDRD (S/P/Bld) [Vol rate/Area] mL/min/{1.73_m2} Normal The [facility] Comment on above: Performed By: #### C MP, MG, CBC #### [place] [address] [place] Globulin (S) [Mass/Vol] 3.2 g/dL Normal The [facility] Comment on above: Performed By: #### C MP, MG, CBC #### [address] Glucose [Mass/Vol] 100 mg/dL Normal 70-100 The [facility] Comment on above: Result Comment: [facility] Glucose Reference Range is dependent on time and content of last meal. Glucose of more than 200 mg/dL in a nonstressed, ambulatory subject supports the diagnosis of Diabetes Mellitus. ADA recommended reference range Performed By: #### C MP, MG, CBC #### [address] Potassium [Moles/Vol] 3.8 mmol/L Normal 3.5-5.1 The [facility] Comment on above: Performed By: #### C MP, MG, CBC #### [address] Protein [Mass/Vol] 7.7 g/dL Normal 6.4-8.9 The [facility] Comment on above: Performed By: #### C MP, MG, CBC #### [place] [address] [place] Sodium [Moles/Vol] 142 mmol/L Normal 136-145 The [facility] Comment on above: Performed By: #### C MP, MG, CBC #### [address] Urea nitrogen [Mass/Vol] 15 mg/dL Normal 7-25 The [facility] Comment on above: Performed By: #### C MP, MG, CBC #### [address] [place] [address] [facility] MR head/brain wo/w conon MR head/brain wo/w con [facility] Main [place] [address] [place] [address] MRI Report Signed Patient: Michelle Be MR#: [id number] : 1960 Acct:[id number] Age/Sex: 63 / F ADM Date: 03/03/24 Loc: 3T Room: [address] [place] [address] Type: ADM IN Attending Dr: Delta Gan [...] Willi Guadalupe M.D.03/04/2024 2:32 PM Dictation Location: [place] [address] Transcribed By: MESHA 03/04/24 1432 Dictated By: Willi Guadalupe II, MD 03/04/24 1424 Signed By: 03/04/24 1432 Normal [facility] Magnesiumon 03-04-2024 Magnesium [Mass/Vol] 2.0 mg/dL Normal 1.9-2.7 The [facility] Comment on above: Result Comment: PERF ORMED BY: [place] [address] PATHOLOGIST CYBER OPERATOR ADIEL AGUSTIN M.D. Performed By: #### C MP, MG, CBC #### [address] Complete Blood Count Auto Di ffon 03-03-2024 Basophils (Bld) [#/Vol] 0.1 10*3/uL Normal 0.0-0.2 The [facility] Comment on above: Order Comment: REY PORRAS,WEN,160 Result Comment: PERF ORMED BY: [place] [address] PATHOLOGIST CYBER OPERATOR ADIEL AGUSTIN M.D. Performed By: #### C BC, CMP #### [address] Basophils/100 WBC (Bld) 0.6 % Normal . [facility] Comment on above: Order Comment: REY PORRAS,WEN,160 Performed By: #### C BC, CMP #### [place] [address] [place] Eosinophils (Bld) [#/Vol] 0.1 10*3/uL Normal 0.0-0.45 The [facility] Comment on above: Order Comment: REY Bird O JAK PORRAS,WEN,160 Performed By: #### C BC, CMP #### [address] Eosinophils/100 WBC (Bld) 1.0 % Normal . [facility] Comment on above: Order Comment: REY Bird O JAK PORRAS,WEN,160 Performed By: #### C BC, CMP #### [address] Erythrocyte distribution width (RBC) [Ratio] 14.6 % Normal 11.9-15.3 The [facility] Comment on above: Order Comment: RIN T O COME TRY,KAH,1607 Performed By: #### C BC, CMP #### [address] Hematocrit (Bld) [Volume fraction] 42.9 % Normal 34.0-46.4 The [facility] Comment on above: Order Comment: RIN T O COME TRY,KAH,1607 Performed By: #### C BC, CMP #### [address] Hemoglobin (Bld) [Mass/Vol] 14.5 g/dL Normal 11.8-15.4 The [facility] Comment on above: Order Comment: RIN T O COME TRY,KAH,160 Performed By: #### C BC, CMP #### [address] Lymphocytes (Bld) [#/Vol] 1.7 10*3/uL Normal 1.00-4.8 The [facility] Comment on above: Order Comment: RIN T O COME TRY,KAH,160 Performed By: #### C BC, CMP #### [place] [address] [place] Lymphocytes/100 WBC (Bld) 15.7 % Normal . [facility] Comment on above: Order Comment: RIN T O COME TRY,KAH,160 Performed By: #### C BC, CMP #### [address] MCH (RBC) [Entitic mass] 29.1 pg Normal 24.7-34.3 The [facility] Comment on above: Order Comment: RIN T O COME TRY,KAH,160 Performed By: #### C BC, CMP #### [address] MCV (RBC) [Entitic vol] 85.9 fL Normal 80-100 The [facility] Comment on above: Order Comment: RIN T O COME TRY,KAH,1607 Performed By: #### C BC, CMP #### [address] Mean Corpuscular HGB Conc 33.8 g/dL Normal 32.0-35.0 The [facility] Comment on above: Order Comment: RIN T O COME TRY,KAH,1607 Performed By: #### C BC, CMP #### [place] [address] [place] Monocytes (Bld) [#/Vol] 0.9 10*3/uL High 0.0-0.8 The [facility] Comment on above: Order Comment: RIN T O COME TRY,KAH,1607 Performed By: #### C BC, CMP #### [address] Monocytes/100 WBC (Bld) 8.4 % Normal . [facility] Comment on above: Order Comment: RIN T O COME TRY,KAH,1607 Performed By: #### C BC, CMP #### [place] [address] [place] Neutrophils (Bld) [#/Vol] 8.0 10*3/uL High 1.8-7.7 The [facility] Comment on above: Order Comment: RIN T O COME TRY,KAH,1607 Performed By: #### C BC, CMP #### [place] [address] [place] Neutrophils/100 WBC (Bld) 74.3 % Normal . [facility] Comment on above: Order Comment: RIN T O COME TRY,KAH,1607 Performed By: #### C BC, CMP #### [place] [address] [place] NRBC% 0.1 /100{WBC} Normal 0-0.5 [facility] Comment on above: Order Comment: RIN T O COME TRY,KAH,1607 Performed By: #### C BC, CMP #### [place] [address] [place] Platelet mean volume (Bld) [Entitic vol] 8.9 fL Normal 6.3-10.7 The [facility] Comment on above: Order Comment: RIN T O COME TRY,KAH,1607 Performed By: #### C BC, CMP #### [address] Platelets (Bld) [#/Vol] 291 10*3/uL Normal 150-450 The [facility] Comment on above: Order Comment: RIN T O COME TRY,KAH,1607 Performed By: #### C BC, CMP #### [address] RBC (Bld) [#/Vol] 4.99 10*6/uL Normal 3.60-5.00 The [facility] Comment on above: Order Comment: RIN T O COME TRY,KAH,1607 Performed By: #### C BC, CMP #### [address] WBC (Bld) [#/Vol] 10.7 10*3/uL Normal 3.8-11.6 The [facility] Comment on above: Order Comment: RIN T O COME TRY,KAH,1607 Performed By: #### C BC, CMP #### [address] Comprehensive Metabolic Pane [facility] 03-03-2024 Albumin [Mass/Vol] 4.6 g/dL Normal 3.5-5.7 The [facility] Comment on above: Order Comment: RIN T O COME TRY,KAH,1607 Performed By: #### C BC, CMP #### [address] Albumin/Globulin [Mass ratio] 1.4 {ratio} Normal The [facility] Comment on above: Order Comment: RIN T O COME TRY,KAH,1607 Performed By: #### C BC, CMP #### [address] ALP [Catalytic activity/Vol] 80 U/L Normal 34-104 [facility] Comment on above: Order Comment: RIN T O COME TRY,KAH,1607 Performed By: #### C BC, CMP #### [facility] [address] ALT [Catalytic activity/Vol] 16 U/L Normal 7-52 The [facility] Comment on above: Order Comment: RIN T O COME TRY,KAH,1607 Performed By: #### C BC, CMP #### [facility] [address] [place] [address] Anion gap [Moles/Vol] 13.6 mmol/L Normal 6.0-15.0 Th e [facility] Comment on above: Order Comment: RIN T O COME TRY,KAH,1607 Performed By: #### C BC, CMP #### [facility] [address] [place] [address] AST [Catalytic activity/Vol] 35 U/L Normal 13-39 The [facility] Comment on above: Order Comment: RIN T O COME TRY,KAH,1607 Performed By: #### C BC, CMP #### [address] Bilirubin [Mass/Vol] 0.3 mg/dL Normal 0.3-1.0 The [facility] Comment on above: Order Comment: RIN T O COME TRY,KAH,1607 Performed By: #### C BC, CMP #### [address] Calcium [Mass/Vol] 9.3 mg/dL Normal 8.6-10.3 The [facility] Comment on above: Order Comment: RIN T O COME TRY,KAH,1607 Performed By: #### C BC, CMP #### [facility] [address] [place] [address] [place] Chloride [Moles/Vol] 109 mmol/L High 98-107 The [facility] Comment on above: Order Comment: RIN T O COME TRY,KAH,1607 Performed By: #### C BC, CMP #### [facility] [address] [place] [address] [place] CO2 [Moles/Vol] 22.4 mmol/L Normal 21.0-31.0 The [facility] Comment on above: Order Comment: RIN T O COME TRY,KAH,1607 Performed By: #### C BC, CMP #### [facility] [address] Creatinine [Mass/Vol] 0.93 mg/dL Normal 0.60-1.20 The [facility] Comment on above: Order Comment: RIN T O COME TRY,KAH,1606 Performed By: #### C BC, CMP #### [facility] [address] Creatinine Clr Calc Pharmacy 87.94 Normal The [facility] Comment on above: Order Comment: RIN T O COME TRY,,1606 Result Comment: PERF ORMED BY: [place] [address] PATHOLOGIST CYBER OPERATOR ADIEL AGUSTIN M.D. Performed By: #### C BC, CMP #### [address] GFR/1.73 sq M.predicted MDRD (S/P/Bld) [Vol rate/Area] mL/min/{1.73_m2} Normal The [facility] Comment on above: Order Comment: RIN T O COME TRY,,1606 Performed By: #### C BC, CMP #### [address] Globulin (S) [Mass/Vol] 3.2 g/dL Normal The [facility] Comment on above: Order Comment: RIN T O COME TRY,,1606 Performed By: #### C BC, CMP #### [address] Glucose [Mass/Vol] 105 mg/dL High 70-100 The [facility] Comment on above: Order Comment: RIN T O COME TRY,,1606 Result Comment: [place] Glucose Reference Range is dependent on time and content of last meal. Glucose of more than 200 mg/dL in a nonstressed, ambulatory subject supports the diagnosis of Diabetes Mellitus. ADA recommended reference range Performed By: #### C BC, CMP #### [address] Potassium [Moles/Vol] 4.0 mmol/L Normal 3.5-5.1 The [facility] Comment on above: Order Comment: REY PORRAS,KAH,160 Performed By: #### C BC, CMP #### [facility] [address] [address] Protein [Mass/Vol] 7.8 g/dL Normal 6.4-8.9 [facility] Comment on above: Order Comment: REY PORRAS,KAH,160 Performed By: #### C BC, CMP #### [facility] [address] Sodium [Moles/Vol] 141 mmol/L Normal 136-145 [facility] Comment on above: Order Comment: REY PORRAS,WEN,160 Performed By: #### C BC, CMP #### [facility] [address] Urea nitrogen [Mass/Vol] 15 mg/dL Normal 7-25 The [facility] Comment on above: Order Comment: REY PORRAS,KAH,160 Performed By: #### C BC, CMP #### [address] IGP,APTIMA HPV,AGE GDLNon AGE GDLN ACOG TESTING Note . [facility] Comment on above: TESTS RESULT FLAG UN ITS REF RANGE LAB Clinician Provided Cytology Information Source.............Cervix;Endocervix No. of containers..01 ThinPrep Vial Age Algo ACOG Tona... FLAG LEGEND: L-Low Normal,H-High Normal,LL-Alert Low,HH-Alert High <-Panic Low,>-Panic High,A-Abnormal,AA-Critical Abnormal Performed at: 01 =[address] [address] Farzana Hennessy MD, HPV APTIMA Negative Negative [facility] Comment on above: This nucleic acid am plification test detects fourteen high- risk HPV types (16,18,31,33,35,39,45,51,52,56,58,59,66,68) without differentiation. Performed at: =[facility] [id number] Glass Frame Fitter: Farzana Hennessy MD, Phone: [phone] Performed at: [facility] [id number] [place] [id number] Glass Frame Fitter: Scott Sandoval MD, Phone: [phone] IGP, APTIMA HPV, RFX 16/18,45 Note . [facility] Comment on above: TESTS RESULT FLAG U NITS REF RANGE LAB DIAGNOSIS: 02 NEGATIVE FOR INTRAEPITHELIAL LESION OR MALIGNANCY. Specimen adequacy: 02 Satisfactory for evaluation. Endocervical and/or squamous metaplastic cells (endocervical component) are present. Performed by: Lg Bustamante, Chemical Librarian ([facility]) . 02 Note: Note 03 The [...] High,A-Abnormal,AA-Critical Abnormal Performed at: 02 [facility] [address] [place] [address] Scott Sandoval MD, 03 WB [facility] [address] [address] Farzana Hennessy MD, BROOM-ALONE CERVIX ENDOCERVIX CLINISYNC [...] UA Negative Negative - 1999(20) ++++ mg/dL [facility] Spec Grav, UA 1.025 1 - 1.03 [facility] Urobilinogen, UA 0.2 0.2 - 12 mg/dL [facility] MHPT CULT,URINEon 10-19-2024 Interpretation and review of laboratory results [facility] Spec[facility] Description .CLEAN C[facility] Culture ESCHERICHIA COLI >100,000 CFU/ML [facility] STREPTOCOCCI, BETA HEMOLYTIC GROUP B 10 to 50,000 CFU/ML [facility] Report Status FINAL 01/23/2024 [facility] MHPT CULT,URINE SUSCEPTIBILITY [facility] MHPT CULT,URINE Organism ESCHERICHIA COLI [facility] Method CROW [facility] MHPT CULT,URINE Ampicillin 16 INTERMEDIATE Intermediate [facility] MHPT CULT,URINE Cefazolin <=4 SUSCEPTIBLE Susceptible [facility] Cefazolin sensitivit y results can be used to predict the effectiveness of oral Susceptible [facility] cephalosporins (eg. Cephalexin) in uncomplicated Urinary Tract Infections due Susceptible [facility] MHPT CULT,URINE to E. coli, K. pneumoniae, and P. mirabilis Susceptible [facility] Ceftriaxone <=0.25 SUSCEPTIBLE Susceptible [facility] MHPT CULT,URINE Negative Susceptible [facility] Gentamicin <=1 SUSCEPTIBLE Susceptible [facility] Levofloxacin <=0.12 SUSCEPTIBLE Susceptible [facility] Nitrofurantoin <=16 SUSCEPTIBLE Susceptible [facility] Piperacillin/Tazobac ta m <=4 SUSCEPTIBLE Susceptible [facility] Tobramycin <=1 SUSCEPTIBLE Susceptible [facility] Trimethoprim/Sulfa <=20 SUSCEPTIBLE Susceptible [facility] Original Ordering Provider: RICHA DAVENPORT [facility] ALL BASIC METABOLIC PANELon 01-05-2024 Anion gap [Moles/Vol] 11.1 mmol/L [facility] Calcium [Mass/Vol] 9.2 mg/dL [...] mmol/L [facility] TBH EGFR-NON AF MONEGASQUE 51 Low 60 - PINF [facility] [...] 03-23-2023 Barbiturates Screen Ql (U) Negative Negative [facility] Benzodiazepines Screen Ql (U )Ordered By: Jace Graham on 03-23-2023 Benzodiazepines Ql (U) Negative Negative [facility] Benzoylecgonine [Presence] i n Urine by Screen methodOrdered By: Jace Graham on 03-23-2023 Benzoylecgonine Screen Ql (U) Negative Negative [facility] Cannabinoids [Presence] in U rine by Screen methodOrdered By: Jace Graham on 03-23-2023 Cannabinoids Screen Ql (U) Negative Negative [facility] Comment on above: These are unconfirme d results and should not be used for legal purposes. Drug Cut-Off Concentration: AMPH 1000 ng/mL ELKIN 200 ng/mL ATIYA 200 ng/mL COCM 300 ng/mL OP 300 ng/mL PCP 25 ng/mL THC 20 ng/mL Opiates [Presence] in Urine by Screen methodOrdered By: Jace Graham on 03-23-2023 Opiates Screen Ql (U) Negative Negative [facility] Phencyclidine Screen Ql (U)O rdered By: Jace Graham on 03-23-2023 Phencyclidine Ql (U) Negative Negative [facility] Cholesterol [Mass/volume] in Serum or PlasmaOrdered By: Eduardo Monk on 11-18-2022 Cholesterol [Mass/Vol] 159 mg/dL 140-200 [facility] Comment on above: Chol less than 200 m g/dl low riskChol 201-239 mg/dl borderline riskChol 240 mg/dl and greater high risk Cholesterol in LDL Calc [Mas s/Vol]Ordered By: Eduardo Monk on 11-18-2022 Cholesterol in LDL [Mass/Vol] 84 mg/dL 0-100 [facility] Comment on above: LDL ATP III CLASSIFI CATIONLDL less than 100 mg/dL OptimalLDL 100-129 mg/dL Near or above optimalLDL 130-159 mg/dL Borderline highLDL 160-189 mg/dL HighLDL greater than 189 mg/dL Very high Cholesterol in VLDL Calc [Ma ss/Vol]Ordered By: Eduardo Monk on 11-18-2022 Cholesterol in VLDL [Mass/Vol] 28 mg/dL [facility] Serum or plasma high density lipoprotein (HDL) cholesterol measurementOrdered By: Eduardo Monk on 11-18-2022 Cholesterol in HDL [Mass/Vol] 46 mg/dL 23-92 [facility] Comment on above: HDL CHOL ATP-III CLA SSIFICATION Cardiovascular RiskHDL > or equal to 60 mg/dL LOWHDL < 40 mg/dL HIGH Serum or plasma total choles terol/high density lipoprotein (HDL) cholesterol mass ratOrdered By: Eduardo Monk on 11-18-2022 Cholesterol.total/Chol esterol in HDL [Mass ratio] 3.5 {ratio} <5.0 [facility] Thyrotropin [Units/volume] i n Serum or PlasmaOrdered By: Eduardo Monk on 11-18-2022 TSH Qn 2.13 m[IU]/L 0.45-5.33 [facility] Triglyceride [Mass/volume] i n Serum or PlasmaOrdered By: Eduardo Monk on 11-18-2022 Triglyceride [Mass/Vol] 144 mg/dL 0-149 [facility] Comment on above: TRIG ATP III CLASSIF ICATIONTRIG less than 150 mg/dL NormalTRIG 150-199 mg/dL Borderline highTRIG 200-500 mg/dL High TRIG greater than 500 mg/dL Very highStandard traceable to the Center for Disease Conrtrol and Prevention (CDC) test method. Vitamin D+Metabolites [Mass/ volume] in Serum or PlasmaOrdered By: Eduardo Monk on 11-18-2022 Vitamin D+Metabolites [Mass/Vol] 50.4 ng/mL 30-100 [facility] Comment on above: VITAMIN D STATUS 25( [place])VITAMIN D RANGE (ng/mL) Deficient <20 Insufficient 20 to <30Sufficient 30 to 100Reference: Bin MF,Lakshmi CABRERA, Cristian SMART, et al. Evaluation,treatment, and prevention of vitamin D deficiency; an Endocrine Society clinical practice guideline. JCEM. 2010; 96(7):1911-30. CBC AUTO DIFFon 07-25-2022 BASO # 0.1 103/ul Normal 0.0-0.1 [facility] Comment on above: Performed By: #### A 1C #### [facility] [address] [address] [address] Bebeto Alvarado Basophils/100 WBC (Bld) 0.6 % Normal 0.2-2.0 [facility] Comment on above: Performed By: #### A 1C #### [facility] [address] [address] [address] Bebeto Alvarado EO # 0.2 103/ul Normal 0.0-0.7 [facility] Comment on above: Performed By: #### A 1C #### [facility] [address] [address] [address] Bebeto Alvarado Eosinophils/100 WBC (Bld) 2.3 % Normal 0.9-7.0 [facility] Comment on above: Performed By: #### A 1C #### [facility] [address] [address] [address] Bebeto Alvarado Erythrocyte distribution width (RBC) [Ratio] 13.8 % Normal 11.0-15.0 [facility] Comment on above: Performed By: #### A 1C #### [facility] [address] [place] [address] Dr. Bebeto Alvarado Hematocrit (Bld) [Volume fraction] 41.2 % Normal 36.0-48.0 [facility] Comment on above: Performed By: #### A 1C #### [facility] [address] [place] [address] Dr. Bebeto Alvarado Hemoglobin (Bld) [Mass/Vol] 13.2 g/dL Normal 12.0-16.0 [facility] Comment on above: Performed By: #### A 1C #### [facility] [address] [place] [address] Dr. Bebeto Alvarado IG # 0.03 10e3/ul Normal 0.00-0.03 [facility] Comment on above: Performed By: #### A 1C #### [facility] [address] [place] [address] Dr. Bebeto Alvarado IG % 0.4 % Normal 0.0-0.5 [facility] Comment on above: Performed By: #### A 1C #### [facility] [address] [place] [address] Dr. Bebeto Alvarado LYMPH # 2.1 103/ul Normal 1.2-3.8 [facility] Comment on above: Performed By: #### A 1C #### [facility] [address] [place] [address] Dr. Bebeto Alvarado Lymphocytes/100 WBC (Bld) 25.9 % Normal 20.5-60.0 [facility] Comment on above: Performed By: #### A 1C #### [facility] [address] [place] [address] Dr. Bebeto Alvarado MANUAL DIFF REQ NO Normal [facility] Comment on above: Performed By: #### A 1C #### [facility] [address] [place] [address] Dr. Bebeto Alvarado MCH (RBC) [Entitic mass] 28.0 pg Normal 26.7-34.0 [facility] Comment on above: Performed By: #### A 1C #### [facility] [address] [address] [address] Bebeto Alvarado MCHC (RBC) [Mass/Vol] 32.0 g/dL Normal 29.9-35.2 [facility] Comment on above: Performed By: #### A 1C #### [facility] [address] [address] [address] Bebeto Alvarado MCV (RBC) [Entitic vol] 87.5 fL Normal 81.0-99.0 [facility] Comment on above: Performed By: #### A 1C #### [facility] [address] [place] [address] Dr. Bebeto Alvarado MONO # 0.5 103/ul Normal 0.3-0.8 [facility] Comment on above: Performed By: #### A 1C #### [facility] [address] [place] [address] Dr. Bebeto Alvarado Monocytes/100 WBC (Bld) 6.6 % Normal 1.7-12.0 [facility] Comment on above: Performed By: #### A 1C #### [facility] [address] [place] [address] Dr. Bebeto Alvarado NEUT # 5.1 103/ul Normal 1.4-6.5 [facility] Comment on above: Performed By: #### A 1C #### [facility] [address] [place] [address] Dr. Bebeto Alvarado Neutrophils/100 WBC (Bld) 64.2 % Normal 43.0-75.0 [facility] Comment on above: Performed By: #### A 1C #### [facility] [address] [place] [address] Dr. Bebeto Alvarado Platelet mean volume (Bld) [Entitic vol] 11.2 fL Normal 9.5-13.5 [facility] Comment on above: Performed By: #### A 1C #### [facility] [address] [place] [address] Dr. Bebeto Alvarado PLT 252 103/ul Normal 150-450 [facility] Comment on above: Performed By: #### A 1C #### [facility] [address] [address] [address] Bebeto Alvarado RBC 4.71 106/ul Normal 4.20-5.40 [facility] Comment on above: Performed By: #### A 1C #### [facility] [address] [address] [address] Bebeto Alvarado WBC 8.0 103/ul Normal 4.0-11.0 [facility] Comment on above: Performed By: #### A 1C #### [facility] [address] [address] [address] Bebeto Alvarado GLYCOHEMOGLOBIN A1Con 2022 ADA RECOMMENDATION SEE BELOW Normal [facility] Comment on above: Result Comment: ADA RECOMMENDED LIMIT 4.0 - 6.0 ADA THERAPEUTIC TARGET < 7.0 ACTION SUGGESTED > 7.0 Performed By: #### A 1C #### [facility] [address] [place] [address] Dr. Bebeto Alvarado Glucose [Mass/Vol] 114 mg/dL Normal [facility] Comment on above: Performed By: #### A 1C #### [facility] [address] [place] [address] Dr. Bebeto Alvarado HbA1c (Bld) [Mass fraction] 5.6 % Normal 4.5-6.2 [facility] Comment on above: Performed By: #### A 1C #### [facility] [address] [place] [address] Dr. Bebeto Alvarado IRONon 07-25-2022 Iron [Mass/Vol] 60.0 ug/dL Normal 50.0-170.0 [facility] Comment on above: Performed By: #### V ITB12, IRON #### [facility] [address] [address] [address] Bebeto Alvarado LIPID PROFILEon 07-25-2022 CHOL-HDL RATIO NORM SEE BELOW Normal [facility] Comment on above: Result Comment: 3.3 - 4.4 LOW RISK 4.4 - 7.1 AVERAGE RISK 7.1 - 11.0 MODERATE RISK >11.0 HIGH RISK Performed By: #### C MP, LIPID #### [facility] [address] [address] [address] Bebeto Alvarado Cholesterol [Mass/Vol] 144 mg/dL Normal <=200 [facility] Comment on above: Performed By: #### C MP, LIPID #### [facility] [address] [address] [address] Bebeto Alvarado Cholesterol in HDL [Mass/Vol] 39 mg/dL Critically low 40-60 [facility] Comment on above: Performed By: #### C MP, LIPID #### [facility] [address] [address] [address] Bebeto Alvarado Cholesterol in LDL [Mass/Vol] 74.6 mg/dL Normal [facility] Comment on above: Performed By: #### C MP, LIPID #### [facility] [address] [address] [address] Bebeto Alvarado Cholesterol.total/Chol esterol in HDL [Mass ratio] 3.7 {ratio} Normal [facility] Comment on above: Performed By: #### C MP, LIPID #### [facility] [address] [place] [address] Dr. Bebeto Alvarado HDL NORMAL > or = 60 mg/dl - LO W CARDIOVASCULAR RISK <40 mg/dl - HIGH CARDIOVASCULAR RISK Normal [facility] Comment on above: Performed By: #### C MP, LIPID #### [facility] [address] [address] [address] Bebeto Alvarado LDL CALC NORMAL SEE BELOW Normal [facility] Comment on above: Result Comment: <100 mg/dl OPTIMAL 100 - 129 mg/dl NEAR OR ABOVE OPTIMAL 130 - 159 mg/dl BORDERLINE HIGH 160 - 189 mg/dl HIGH >190 mg/dl VERY HIGH Performed By: #### C MP, LIPID #### [facility] [address] [address] [address] Bebeto Alvarado Triglyceride [Mass/Vol] 152 mg/dL Critically high <=150 [facility] Comment on above: Performed By: #### C MP, LIPID #### [facility] [address] [address] [address] Bebeto Alvarado VLDL CALC 30.4 mg/dL Normal [facility] Comment on above: Performed By: #### C MP, LIPID #### [facility] [address] [address] [address] Bebeto Alvarado PROF 14(COMP METB)on 023 Albumin [Mass/Vol] 3.7 g/dL Normal 3.4-5.0 [facility] Comment on above: Performed By: #### C MP, LIPID #### [facility] [address] [place] [address] Dr. Bebeto Alvarado Albumin/Globulin [Mass ratio] 0.9 {ratio} Normal [facility] Comment on above: Performed By: #### C MP, LIPID #### [facility] [address] [place] [address] Dr. Bebeto Alvarado ALP [Catalytic activity/Vol] 90 U/L Normal 46-116 [facility] Comment on above: Performed By: #### C MP, LIPID #### [facility] [address] [place] [address] Dr. Bebeto Alvarado ALT [Catalytic activity/Vol] 38 U/L Normal 14-59 [facility] Comment on above: Performed By: #### C MP, LIPID #### [facility] [address] [place] [address] Dr. Bebeto Alvarado Anion gap [Moles/Vol] 12.1 mmol/L Normal [facility] Comment on above: Performed By: #### C MP, LIPID #### [facility] [address] [place] [address] Dr. Bebeto Alvarado AST [Catalytic activity/Vol] 26 U/L Normal 15-37 [facility] Comment on above: Performed By: #### C MP, LIPID #### [facility] [address] [place] [address] Dr. Bebeto Alvarado Bilirubin [Mass/Vol] 0.3 mg/dL Normal 0.2-1.0 [facility] Comment on above: Performed By: #### C MP, LIPID #### [facility] [address] [place] [address] Dr. Bebeto Alvarado Calcium [Mass/Vol] 9.3 mg/dL Normal 8.5-10.1 [facility] Comment on above: Performed By: #### C MP, LIPID #### [facility] [address] [address] [address] Bebeto Alvarado Chloride [Moles/Vol] 107 mmol/L Normal 98-107 [facility] Comment on above: Performed By: #### C MP, LIPID #### [facility] [address] [address] [address] Bebeto Alvarado CO2 [Moles/Vol] 27.9 mmol/L Normal 21.0-32.0 [facility] Comment on above: Performed By: #### C MP, LIPID #### [facility] [address] [address] [address] Bbeeto Alvarado Creatinine [Mass/Vol] 0.95 mg/dL Normal 0.55-1.02 [facility] Comment on above: Performed By: #### C MP, LIPID #### [facility] [address] [address] [address] Bebeto Alvarado EGFR-AF MONEGASQUE >60 Normal >=60 [facility] Comment on above: Performed By: #### C MP, LIPID #### [facility] [address] [address] [address] Bebeto Alvarado EGFR-NON AF MONEGASQUE 60 mL/min/1.73m2 Normal >=60 [facility] Comment on above: Performed By: #### C MP, LIPID #### [facility] [address] [address] [address] Bebeto Alvarado Globulin (S) [Mass/Vol] 3.9 g/dL Normal [facility] Comment on above: Performed By: #### C MP, LIPID #### [facility] [address] [address] [address] Bebeto Alvarado Glucose [Mass/Vol] 108 mg/dL Critically high 74-106 [facility] Comment on above: Performed By: #### C MP, LIPID #### [facility] [address] [address] [address] Bebeto Alvarado Potassium [Moles/Vol] 4.0 mmol/L Normal 3.5-5.1 [facility] Comment on above: Performed By: #### C MP, LIPID #### [facility] [address] [place] [address] Dr. Bebeto Alvarado Protein [Mass/Vol] 7.6 g/dL Normal 6.4-8.2 [facility] Comment on above: Performed By: #### C MP, LIPID #### [facility] [address] [place] [address] Dr. Bebeto Alvarado Sodium [Moles/Vol] 143 mmol/L Normal 136-145 [facility] Comment on above: Performed By: #### C MP, LIPID #### [facility] [address] [place] [address] Dr. Bebeto Alvarado Urea nitrogen [Mass/Vol] 15.0 mg/dL Normal 7.0-18.0 [facility] Comment on above: Performed By: #### C MP, LIPID #### [facility] [address] [place] [address] Dr. Bebeto Alvarado Urea nitrogen/Creatinine [Mass ratio] 15.8 mg/mg Normal [facility] Comment on above: Performed By: #### C MP, LIPID #### [facility] [address] [place] [address] Dr. Bebeto Alvarado UA RANDOM W/MICROSCOPICon BACTERIA NONE SEEN Normal NONE SEEN [facility] Comment on above: Performed By: #### A 1C #### [facility] [address] [place] [address] Dr. Bebeto Alvarado Bilirubin Ql (U) Negative Normal NEGATIVE [facility] Comment on above: Performed By: #### A 1C #### [facility] [address] [place] [address] Dr. Bebeto Alvarado CAST NONE SEEN Normal NONE SEEN [facility] Comment on above: Performed By: #### A 1C #### [facility] [address] [place] [address] Dr. Bebeto Alvarado Clarity (U) CLEAR Normal CLEAR [facility] Comment on above: Performed By: #### A 1C #### [facility] [address] [place] [address] Dr. Bebeto Alvarado Color (U) YELLOW Normal YELLOW [facility] Comment on above: Performed By: #### A 1C #### [facility] [address] [place] [address] Dr. Bebeto Alvarado Crystals LM Nom (Urine sed) NONE SEEN Normal NONE SEEN [facility] Comment on above: Performed By: #### A 1C #### [facility] [address] [place] [address] Dr. Bebeto Alvarado Epithelial cells LM Ql (Urine sed) NONE SEEN Normal NONE SEEN /RARE [facility] Comment on above: Performed By: #### A 1C #### [facility] [address] [place] [address] Dr. Bebeto Alvarado Glucose Ql (U) Negative Normal NEGATIVE [facility] Comment on above: Performed By: #### A 1C #### [facility] [address] [place] [address] Dr. Bebeto Alvarado Hemoglobin Ql (U) Negative Normal NEGATIVE [facility] Comment on above: Performed By: #### A 1C #### [facility] [address] [place] [address] Dr. Bebeto Alvarado Ketones Ql (U) Negative Normal NEGATIVE [facility] Comment on above: Performed By: #### A 1C #### [facility] [address] [place] [address] Dr. Bebeto Alvarado LEUKOCYTES Negative Normal NEGATIVE [facility] Comment on above: Performed By: #### A 1C #### [facility] [address] [place] [address] Dr. Bebeto Alvarado MUCOUS NONE SEEN Normal NONE SEEN [facility] Comment on above: Performed By: #### A 1C #### [facility] [address] [place] [address] Dr. Bebeto Alvarado Nitrite Ql (U) Negative Normal NEGATIVE [facility] Comment on above: Performed By: #### A 1C #### [facility] [address] [place] [address] Dr. Bebeto Alvarado pH (U) 5.5 [pH] Normal 5-9 [facility] Comment on above: Performed By: #### A 1C #### [facility] [address] [place] [address] Dr. Bebeto Alvarado RBC NONE SEEN Abnormal 0-2 [facility] Comment on above: Performed By: #### A 1C #### [facility] [address] [place] [address] Dr. Bebeto Alvarado SPEC GRAVITY 1.030 Abnormal 1.005-<=1.02 5 [facility] Comment on above: Performed By: #### A 1C #### [facility] [address] [place] [address] Dr. Bebeto Alvarado UA PROTEIN Negative Normal NEGATIVE/ TRACE [facility] Comment on above: Performed By: #### A 1C #### [facility] [address] [place] [address] Dr. Bebeto Alvarado Urobilinogen Qn (U) 0.2 {Katerin'U}/dL Normal 0.2 - 1. 0 [facility] Comment on above: Performed By: #### A 1C #### [facility] [address] [place] [address] Dr. Bebeto Alvarado WBC NONE SEEN Normal NONE SEEN [facility] Comment on above: Performed By: #### A 1C #### [facility] [address] [place] [address] Dr. Bebeto Alvarado VITAMIN B12on 07-25-2022 Cobalamin (Vitamin B12) [Mass/Vol] 1684.0 pg/mL Critically high 193.0-986.0 [facility] Comment on above: Performed By: #### V ITB12, IRON #### [facility] [address] [place] [address] Dr. Bebeto Alvarado PROF CHEM 8 (BAS METB)on Anion gap [Moles/Vol] 12.2 mmol/L Normal [facility] Comment on above: Performed By: #### B MP #### [facility] [address] [place] [address] Dr. Bebeto Alvarado Calcium [Mass/Vol] 8.9 mg/dL Normal 8.5-10.1 [facility] Comment on above: Performed By: #### B MP #### [facility] [address] [address] [address] Bebeto Alvarado Chloride [Moles/Vol] 105 mmol/L Normal 98-107 [facility] Comment on above: Performed By: #### B MP #### [facility] [address] [address] [address] Bebeto Alvarado CO2 [Moles/Vol] 29.6 mmol/L Normal 21.0-32.0 [facility] Comment on above: Performed By: #### B MP #### [facility] [address] [address] [address] Bebeto Alvarado Creatinine [Mass/Vol] 0.95 mg/dL Normal 0.55-1.02 [facility] Comment on above: Performed By: #### B MP #### [facility] [address] [place] [address] Dr. Bebeto Alvarado EGFR-AF MONEGASQUE >60 Normal >=60 [facility] Comment on above: Performed By: #### B MP #### [facility] [address] [address] [address] Bebeto Alvarado EGFR-NON AF MONEGASQUE 60 mL/min/1.73m2 Normal >=60 [facility] Comment on above: Performed By: #### B MP #### [facility] [address] [place] [address] Dr. Bebeto Alvarado Glucose [Mass/Vol] 101 mg/dL Normal 74-106 [facility] Comment on above: Performed By: #### B MP #### [facility] [address] [address] [address] Bebeto Alvarado Potassium [Moles/Vol] 3.8 mmol/L Normal 3.5-5.1 [facility] Comment on above: Performed By: #### B MP #### [facility] [address] [place] [address] Dr. Bebeto Alvarado Sodium [Moles/Vol] 143 mmol/L Normal 136-145 [facility] Comment on above: Performed By: #### B MP #### [facility] [address] [place] [address] Dr. Bebeto Alvarado Urea nitrogen [Mass/Vol] 16.0 mg/dL Normal 7.0-18.0 [facility] Comment on above: Performed By: #### B MP #### [facility] [address] [place] [address] Dr. Bebeto Alvarado Urea nitrogen/Creatinine [Mass ratio] 16.8 mg/mg Normal [facility] Comment on above: Performed By: #### B MP #### [facility] [address] [place] [address] Dr. Bebeto Alvarado CBC AUTO DIFFon 11-21-2021 BASO # 0.1 103/ul Normal 0.0-0.1 [facility] Comment on above: Performed By: #### A 1C #### [facility] [address] [place] [address] Dr. Bebeto Alvarado Basophils/100 WBC (Bld) 1.0 % Normal 0.2-2.0 [facility] Comment on above: Performed By: #### A 1C #### [facility] [address] [place] [address] Dr. Bebeto Alvarado EO # 0.2 103/ul Normal 0.0-0.7 [facility] Comment on above: Performed By: #### A 1C #### [facility] [address] [place] [address] Dr. Bebeto Alvarado Eosinophils/100 WBC (Bld) 3.3 % Normal 0.9-7.0 [facility] Comment on above: Performed By: #### A 1C #### [facility] [address] [place] [address] Dr. Bebeto Alvarado Erythrocyte distribution width (RBC) [Ratio] 13.8 % Normal 11.0-15.0 [facility] Comment on above: Performed By: #### A 1C #### [facility] [address] [place] [address] Dr. Bebeto Alvarado Hematocrit (Bld) [Volume fraction] 38.8 % Normal 36.0-48.0 [facility] Comment on above: Performed By: #### A 1C #### [facility] [address] [place] [address] Dr. Bebeto Alvarado Hemoglobin (Bld) [Mass/Vol] 12.5 g/dL Normal 12.0-16.0 [facility] Comment on above: Performed By: #### A 1C #### [facility] [address] [place] [address] Dr. Bebeto Alvarado IG # 0.02 10e3/ul Normal 0.00-0.03 [facility] Comment on above: Performed By: #### A 1C #### [facility] [address] [place] [address] Dr. Bebeto Alvarado IG % 0.3 % Normal 0.0-0.5 [facility] Comment on above: Performed By: #### A 1C #### [facility] [address] [place] [address] Dr. Bebeto Alvarado LYMPH # 1.9 103/ul Normal 1.2-3.8 [facility] Comment on above: Performed By: #### A 1C #### [facility] [address] [place] [address] Dr. Bebeto Alvarado Lymphocytes/100 WBC (Bld) 29.6 % Normal 20.5-60.0 [facility] Comment on above: Performed By: #### A 1C #### [facility] [address] [place] [address] Dr. Bebeto Alvarado MANUAL DIFF REQ NO Normal [facility] Comment on above: Performed By: #### A 1C #### [facility] [address] [place] [address] Dr. Bebeto Alvarado MCH (RBC) [Entitic mass] 28.0 pg Normal 26.7-34.0 [facility] Comment on above: Performed By: #### A 1C #### [facility] [address] [place] [address] Dr. Bebeto Alvarado MCHC (RBC) [Mass/Vol] 32.2 g/dL Normal 29.9-35.2 [facility] Comment on above: Performed By: #### A 1C #### [facility] [address] [place] [address] Dr. Bebeto Alvarado MCV (RBC) [Entitic vol] 86.8 fL Normal 81.0-99.0 [facility] Comment on above: Performed By: #### A 1C #### [facility] [address] [place] [address] Dr. Bebeto Alvarado MONO # 0.4 103/ul Normal 0.3-0.8 [facility] Comment on above: Performed By: #### A 1C #### [facility] [address] [place] [address] Dr. Bebeto Alvarado Monocytes/100 WBC (Bld) 5.7 % Normal 1.7-12.0 [facility] Comment on above: Performed By: #### A 1C #### [facility] [address] [place] [address] Dr. Bebeto Alvarado NEUT # 3.8 103/ul Normal 1.4-6.5 [facility] Comment on above: Performed By: #### A 1C #### [facility] [address] [place] [address] Dr. Bebeto Alvarado Neutrophils/100 WBC (Bld) 60.1 % Normal 43.0-75.0 [facility] Comment on above: Performed By: #### A 1C #### [facility] [address] [place] [address] Dr. Bebeto Alvarado Platelet mean volume (Bld) [Entitic vol] 11.0 fL Normal 9.5-13.5 [facility] Comment on above: Performed By: #### A 1C #### [facility] [address] [place] [address] Dr. Bebeto Alvarado PLT 264 103/ul Normal 150-450 [facility] Comment on above: Performed By: #### A 1C #### [facility] [address] [place] [address] Dr. Bebeto Alvarado RBC 4.47 106/ul Normal 4.20-5.40 [facility] Comment on above: Performed By: #### A 1C #### [facility] [address] [place] [address] Dr. Bebeto Alvarado WBC 6.3 103/ul Normal 4.0-11.0 [facility] Comment on above: Performed By: #### A 1C #### [facility] [address] [address] [address] Bebeto Alvarado GLYCOHEMOGLOBIN A1Con 2021 ADA RECOMMENDATION SEE BELOW Normal [facility] Comment on above: Result Comment: ADA RECOMMENDED LIMIT 4.0 - 6.0 ADA THERAPEUTIC TARGET < 7.0 ACTION SUGGESTED > 7.0 Performed By: #### A 1C #### [facility] [address] [address] [address] Bebeto Alvarado Glucose [Mass/Vol] 105 mg/dL Normal [facility] Comment on above: Performed By: #### A 1C #### [facility] [address] [address] [address] Bebeto Alvarado HbA1c (Bld) [Mass fraction] 5.3 % Normal 4.5-6.2 [facility] Comment on above: Performed By: #### A 1C #### [facility] [address] [address] [address] Bebeto Alvarado IRONon 11-21-2021 Iron [Mass/Vol] 59.0 ug/dL Normal 50.0-170.0 [facility] Comment on above: Performed By: #### A 1C #### [facility] [address] [address] [address] Bebeto Alvarado LIPID PROFILEon 11-21-2021 CHOL-HDL RATIO NORM SEE BELOW Normal [facility] Comment on above: Result Comment: 3.3 - 4.4 LOW RISK 4.4 - 7.1 AVERAGE RISK 7.1 - 11.0 MODERATE RISK >11.0 HIGH RISK Performed By: #### C MP, LIPID #### [facility] [address] [address] [address] Bebeto Alvarado Cholesterol [Mass/Vol] 139 mg/dL Normal <=200 [facility] Comment on above: Performed By: #### C MP, LIPID #### [facility] [address] [address] [address] Bebeto Alvarado Cholesterol in HDL [Mass/Vol] 35 mg/dL Critically low 40-60 [facility] Comment on above: Performed By: #### C MP, LIPID #### [facility] [address] [address] [address] Bebeto Alvarado Cholesterol in LDL [Mass/Vol] 69.6 mg/dL Normal [facility] Comment on above: Performed By: #### C MP, LIPID #### [facility] [address] [address] [address] Bebeto Alvarado Cholesterol.total/Chol esterol in HDL [Mass ratio] 4.0 {ratio} Normal [facility] Comment on above: Performed By: #### C MP, LIPID #### [facility] [address] [place] [address] Dr. Bebeto Alvarado HDL NORMAL > or = 60 mg/dl - LO W CARDIOVASCULAR RISK <40 mg/dl - HIGH CARDIOVASCULAR RISK Normal [facility] Comment on above: Performed By: #### C MP, LIPID #### [facility] [address] [place] [address] Dr. Bebeto Alvarado LDL CALC NORMAL SEE BELOW Normal [facility] Comment on above: Result Comment: <100 mg/dl OPTIMAL 100 - 129 mg/dl NEAR OR ABOVE OPTIMAL 130 - 159 mg/dl BORDERLINE HIGH 160 - 189 mg/dl HIGH >190 mg/dl VERY HIGH Performed By: #### C MP, LIPID #### [facility] [address] [place] [address] Dr. Bebeto Alvarado Triglyceride [Mass/Vol] 172 mg/dL Critically high <=150 [facility] Comment on above: Performed By: #### C MP, LIPID #### [facility] [address] [place] [address] Dr. Bebeto Alvarado VLDL CALC 34.4 mg/dL Normal [facility] Comment on above: Performed By: #### C MP, LIPID #### [facility] [address] [place] [address] Dr. Bebeto Alvarado PROF 14(COMP METB)on 022 Albumin [Mass/Vol] 3.8 g/dL Normal 3.4-5.0 [facility] Comment on above: Performed By: #### C MP, LIPID #### [facility] [address] [address] [address] Bebeto Alvarado Albumin/Globulin [Mass ratio] 1.1 {ratio} Normal [facility] Comment on above: Performed By: #### C MP, LIPID #### [facility] [address] [address] [address] Bebeto Alvarado ALP [Catalytic activity/Vol] 96 U/L Normal 46-116 [facility] Comment on above: Performed By: #### C MP, LIPID #### [facility] [address] [address] [address] Bebeto Alvarado ALT [Catalytic activity/Vol] 25 U/L Normal 14-59 [facility] Comment on above: Performed By: #### C MP, LIPID #### [facility] [address] [place] [address] Dr. Bebeto Alvarado Anion gap [Moles/Vol] 11.8 mmol/L Normal [facility] Comment on above: Performed By: #### C MP, LIPID #### [facility] [address] [place] [address] Dr. Bebeto Alvarado AST [Catalytic activity/Vol] 20 U/L Normal 15-37 [facility] Comment on above: Performed By: #### C MP, LIPID #### [facility] [address] [place] [address] Dr. Bebeto Alvarado Bilirubin [Mass/Vol] 0.4 mg/dL Normal 0.2-1.0 [facility] Comment on above: Performed By: #### C MP, LIPID #### [facility] [address] [address] [address] Bebeto Alvarado Calcium [Mass/Vol] 8.8 mg/dL Normal 8.5-10.1 [facility] Comment on above: Performed By: #### C MP, LIPID #### [facility] [address] [place] [address] Dr. Bebeto Alvarado Chloride [Moles/Vol] 106 mmol/L Normal 98-107 [facility] Comment on above: Performed By: #### C MP, LIPID #### [facility] [address] [address] [address] Bebeto Alvarado CO2 [Moles/Vol] 27.0 mmol/L Normal 21.0-32.0 [facility] Comment on above: Performed By: #### C MP, LIPID #### [facility] [address] [address] [address] Bebeto Alvarado Creatinine [Mass/Vol] 0.97 mg/dL Normal 0.55-1.02 [facility] Comment on above: Performed By: #### C MP, LIPID #### [facility] [address] [address] [address] Bebeto Alvarado EGFR-AF MONEGASQUE >60 Normal >=60 [facility] Comment on above: Performed By: #### C MP, LIPID #### [facility] [address] [address] [address] Bebeto Alvarado EGFR-NON AF MONEGASQUE 59 mL/min/1.73m2 Critically low >=60 [facility] Comment on above: Performed By: #### C MP, LIPID #### [facility] [address] [address] [address] Bebeto Alvarado Globulin (S) [Mass/Vol] 3.4 g/dL Normal [facility] Comment on above: Performed By: #### C MP, LIPID #### [facility] [address] [address] [address] Bebeto Alvarado Glucose [Mass/Vol] 103 mg/dL Normal 74-106 [facility] Comment on above: Performed By: #### C MP, LIPID #### [facility] [address] [address] [address] Bebeto Alvarado Potassium [Moles/Vol] 3.8 mmol/L Normal 3.5-5.1 [facility] Comment on above: Performed By: #### C MP, LIPID #### [facility] [address] [address] [address] Bebeto Alvarado Protein [Mass/Vol] 7.2 g/dL Normal 6.4-8.2 [facility] Comment on above: Performed By: #### C MP, LIPID #### [facility] [address] [address] [address] Bebeto Alvarado Sodium [Moles/Vol] 141 mmol/L Normal 136-145 [facility] Comment on above: Performed By: #### C MP, LIPID #### [facility] [address] [address] [address] Bebeto Alvarado Urea nitrogen [Mass/Vol] 11.0 mg/dL Normal 7.0-18.0 [facility] Comment on above: Performed By: #### C MP, LIPID #### [facility] [address] [address] [address] Bebeto Alvarado Urea nitrogen/Creatinine [Mass ratio] 11.3 mg/mg Normal [facility] Comment on above: Performed By: #### C MUKUND, LIPID #### [facility] [address] [place] [address] Dr. Bebeto Alvarado URIC ACID SERUMon 11-21-2021 Urate [Mass/Vol] 7.3 mg/dL Critically high 2.6-6.0 [facility] Comment on above: Performed By: #### A 1C #### [facility] [address] [place] [address] Dr. Bebeto Alvarado VITAMIN B12on 11-21-2021 Cobalamin (Vitamin B12) [Mass/Vol] 2123.0 pg/mL Critically high 193.0-986.0 [facility] Comment on above: Performed By: #### A 1C #### [facility] [address] [place] [address] Dr. Bebeto Alvarado Physician Referralon 022 Physician Referral [phone] [id number] Normal [facility] KNEE RIGHT 1 OR 2 VWSon KNEE RIGHT 1 OR 2 VWS [facility] Department of Radiology [address] [place] [id number] ======== Patient Name: MICHELLE BE : 1960 Sex: F Age: Race: White Pt. Location: 84 Patient Status: O Ordered Date: 02/08/2019 10:40:00 AM Completed Date: 02/08/2019 10:38 AM Requesting Provider: AHSAN BINGHAM Attending Provider: AHSAN BINGHAM Report Copy To: Signs & Symptoms: S82.001A Unsp fracture of right patella, init for clos fx I10 History: Newman Comments: , , , Ordering Provider - [...] Electronically signed by:Debra Del Cid. Transcribed by: [id number], User Resident: Electronically Signed by: DEBRA DEL CID @ 02/08/2019 11:16 AM [facility] Comment on above: Order Comment: , Vie ws (X-RAY, KNEE): Radiologic Protocol , Weight Bearing?: N , With or Without Brace/Cast/Collar: With , Views (X-RAY, KNEE): Radiologic Protocol , Weight Bearing?: N , With or Without Brace/Cast/Collar: With , , , Ordering Provider - AHSAN BINGHAM PA-C , KNEE RIGHT 1 OR 2 VWSon KNEE RIGHT 1 OR 2 VWS [facility] Department of Radiology [address] [place] [address] ======== Patient Name: MICHELLE BE [...] complications. Electronically signed by:Tomasz Stoll. Transcribed by: [email or web address], User Resident: Electronically Signed by: TOMASZ STOLL @ 12/07/2018 11:14 AM Normal [facility] Comment on above: Order Comment: , Vie ws (X-RAY, KNEE): Radiologic Protocol , Weight Bearing?: N , With or Without Brace/Cast/Collar: With , Views (X-RAY, KNEE): Radiologic Protocol , Weight Bearing?: N , With or Without Brace/Cast/Collar: With , , , Ordering Provider - AHSAN BINGHAM PA-C , KNEE RIGHT 1 OR 2 [facility] KNEE RIGHT 1 OR 2 [facility] Department of Radiology [address] [place] [id number] ======== Patient Name: MICHELLE BE : 1960 Sex: F Age: Race: White Pt. 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 Transcribed by: [email or web address], User Resident: Electronically Signed by: ANUP ELLISON @ 10/06/2018 02:48 PM Normal [facility] Comment on above: Order Comment: , Rossie ws (X-RAY, KNEE): Radiologic Protocol , Weight Bearing?: N , With or Without Brace/Cast/Collar: With , Views (X-RAY, KNEE): Radiologic Protocol , Weight Bearing?: N , With or Without Brace/Cast/Collar: With , , , Ordering Provider - AHSAN BINGHAM PA-C , KNEE RIGHT 1 OR 2 VWSon 08-05 KNEE RIGHT 1 OR 2 VWS [facility] Department of Radiology [address] [place] [id number] ======== Patient Name: MICHELLE BE : [...] effusion Electronically signed by:Anup Ellison. Transcribed by: [email or web address], User Resident: Electronically Signed by: ANUP ELLISON @ 08/26/2018 04:56 PM Normal [facility] Comment on above: Order Comment: , Vie ws (X-RAY, KNEE): Radiologic Protocol , Weight Bearing?: N , With or Without Brace/Cast/Collar: With , Views (X-RAY, KNEE): Radiologic Protocol , Weight Bearing?: N , With or Without Brace/Cast/Collar: With , , , Ordering Provider - AHSAN BINGHAM PA-C , KNEE RIGHT 1 OR 2 [facility] 07-06 KNEE RIGHT 1 OR 2 [facility] Department of Radiology [address] [place] [id number] ======== Patient Name: MICHELLE BE : 1960 Sex: F Age: Race: White Pt. Location: Patient Status: Ordered Date: 07/29/2018 2:10:00 PM Completed Date: 07/29/2018 02:12 PM Requesting Provider: AHSAN BINGHAM Attending Provider: Report Copy To: Signs & Symptoms: S82.001A Unsp fracture of right patella, init for clos fx I10 History: Newman Comments: , , , Ordering Provider - [...] compartment Electronically signed by:Anup Ellison. Transcribed by: [email or web address], User Resident: Electronically Signed by: ANUP ELLISON @ 07/29/2018 03:41 PM Normal [facility] Comment on above: Order Comment: , Mabel ws (X-RAY, KNEE): Radiologic Protocol , Weight Bearing?: N , With or Without Brace/Cast/Collar: With , Views (X-RAY, KNEE): Radiologic Protocol , Weight Bearing?: N , With or Without Brace/Cast/Collar: With , , , Ordering Provider - AHSAN OTILIA PA-C , KNEE RIGHT 3 Son 9 KNEE RIGHT 3 S [facility] Department of Radiology [address] [place] [phone] ======== Patient Name: MICHELLE BE : 1960 Sex: F Age: Race: White Pt. Location: 84 Patient Status: Ordered Date: 07/15/2018 8:45:00 AM Completed Date: 07/15/2018 08:47 AM Requesting Provider: AHSAN BINGHAM Attending Provider: Report Copy To: Signs & Symptoms: S82.001A Unsp fracture of right patella, init for clos fx I10 History: Newman Comments: , , , Ordering Provider - AHSAN BINGHAM PA-C , Exam: KNEE RIGHT 3 [facility] ======== KNEE RIGHT 3 [facility] 07/15/2018 8:47 AM EDT SIGNS [...] knee Electronically signed by:Anup Ellison. Transcribed by: [email or web address], User Resident: Electronically Signed by: ANUP ELLISON @ 07/15/2018 03:31 PM Normal [facility] Comment on above: Order Comment: , Vie ws (X-RAY, KNEE): Radiologic Protocol , Weight Bearing?: N , With or Without Brace/Cast/Collar: With , Views (X-RAY, KNEE): Radiologic Protocol , Weight Bearing?: N , With or Without Brace/Cast/Collar: With , , , Ordering Provider - AHSAN BINGHAM PA-C , Operative Reporton 07-03- 9 Operative Report MR#: [id number] S [facility] Pt. Name: Michelle Be Room [...] Duarte MD Date Trans: 07/03/2018 04:28 A/mmo [id number] Normal [facility] *ANAEROBIC CULTUREon 019 *ANAEROBIC CULTURE Clinical Report: (D) Specimen/Source: SWAB/RT KNEE Collected: 07/02/2018 13:53 Status: Final Last Updated: 07/07/2018 08:02 CULT RES (Final) No Anaerobes Isolated [address] [facility] Comment on above: Performed By: #### 3 0312 #### [address] *WOUND CULTUREon 07-02-2018 *WOUND CULTURE Clinical Report: (D) Specimen/Source: WOUND/INTRAOP SPEC Collected: 07/02/2018 13:53 Status: Final Last Updated: 07/07/2018 10:13 (1) #1 RT KNEE GRAM (Final) Rare Polys No Bacteria Seen CULT RES (Final) No Growth Day [address] [facility] Comment on above: Order Comment: #1 RT KNEE Performed By: #### 3 0343 #### [address] KNEE RIGHT 1 OR 2 [facility] 06-05 KNEE RIGHT 1 OR 2 S [facility] Department of Radiology [address] [place] [id number] ======== Patient Name: MICHELLE BE : [...] Electronically signed by:Debra Del Cid. Transcribed by: [email or web address], User Resident: Electronically Signed by: DEBRA DEL CID @ 07/02/2018 02:03 PM Normal [facility] Comment on above: Order Comment: ORIF VS PERCUTANEOUS FIXATION RIGHT PATELLA POC GLUCOSE LABon 07-02-2018 Glucose [Mass/Vol] 108 mg/dL High 70-100 [facility] Comment on above: Performed By: #### 8 [id number] #### [facility] [address] [facility] [place] [address], [facility] APTTon 06-30-2018 aPTT Coag (Bld) [Time] 30.6 s Normal 25.0-35.0 [facility] Comment on above: Result Comment: [...] THIS PURPOSE. Performed By: #### 5 [id number], [id number] #### [facility] [address] [place] [address], [facility] BASIC METABOLIC PANELon 03-2 Calcium [Mass/Vol] 9.7 mg/dL Normal 8.6-10.3 [facility] Comment on above: Performed By: #### 0 0071 #### [facility] [address] [place] [address], [place] Chloride [Moles/Vol] 102 mmol/L Normal 98-107 [facility] Comment on above: Performed By: #### 0 0071 #### [facility] [address] [place] [address], [place] CO2 [Moles/Vol] 28 mmol/L Normal 21-31 [facility] Comment on above: Performed By: #### 0 0071 #### [facility] [address] [place] [address], [place] Creatinine [Mass/Vol] 1.20 mg/dL Normal 0.60-1.20 [facility] Comment on above: Performed By: #### 0 0071 #### [facility] [address] [place] [address], [place] GFR/1.73 sq M predicted among blacks MDRD (S/P/Bld) [Vol rate/Area] 56 ml/min/1.73sq m Abnormal >60 [facility] Comment on above: Performed By: #### 0 0071 #### [facility] [address] [place] [address], [place] GFR/1.73 sq M predicted among non-blacks MDRD (S/P/Bld) [Vol rate/Area] 47 ml/min/1.73sq m Abnormal >60 [facility] Comment on above: Performed By: #### 0 0071 #### [facility] [address] [place] [address], [place] Glucose [Mass/Vol] 97 mg/dL Normal 70-100 [facility] Comment on above: Performed By: #### 0 0071 #### [facility] [address] [facility] [address] Potassium [Moles/Vol] 4.1 mmol/L Normal 3.5-5.1 [facility] Comment on above: Performed By: #### 0 0071 #### [facility] [address] Sodium [Moles/Vol] 137 mmol/L Normal 136-145 [facility] Comment on above: Performed By: #### 0 1 #### [facility] [address] Urea nitrogen [Mass/Vol] 19 mg/dL Normal 7-25 [facility] Comment on above: Performed By: #### 0 1 #### [facility] [address] CBC W/DIFFon 06-30-2018 ABS BASOPHILS 0.1 10*3/uL Normal 0.0-0.2 [facility] Comment on above: Performed By: #### 5 102 #### [facility] [address] ABS IMM GRANS 0.0 10*3/uL Normal 0.0-0.2 [facility] Comment on above: Performed By: #### 5 0103 #### [facility] [address] ABS NEUTROPHILS 6.4 10*3/uL Normal 1.6-7.6 [facility] Comment on above: Performed By: #### 5 3 #### [facility] [address] Basophils/100 WBC (Bld) 0.7 % Normal 0.0-1.0 [facility] Comment on above: Performed By: #### 5 3 #### [facility] [address] [place] [id number], [place] Eosinophils (Bld) [#/Vol] 0.2 10*3/uL Normal 0.0-0.5 [facility] Comment on above: Performed By: #### 5 0103 #### [facility] [address] [facility] [place] [address], [facility] Eosinophils/100 WBC (Bld) 1.5 % Normal 0.0-6.0 [facility] Comment on above: Performed By: #### 5 0103 #### [facility] [address] Erythrocyte distribution width (RBC) [Ratio] 14.4 % Normal 11.5-15.0 [facility] Comment on above: Performed By: #### 5 0103 #### [facility] [address] Hematocrit (Bld) [Volume fraction] 40.6 % Normal 36.0-45.0 [facility] Comment on above: Performed By: #### 5 0103 #### [facility] [address] Hemoglobin (Bld) [Mass/Vol] 13.3 g/dL Normal 12.0-15.0 [facility] Comment on above: Performed By: #### 5 0103 #### [facility] [address] [facility] [place] [address], [facility] IMMATURE GRANS 0.4 % Normal 0.0-1.0 [facility] Comment on above: Performed By: #### 5 0103 #### [facility] [address] [place] [address], [facility] Lymphocytes (Bld) [#/Vol] 2.6 10*3/uL Normal 1.2-4.0 [facility] Comment on above: Performed By: #### 5 3 #### [facility] [address] [facility] [place] [address], [facility] Lymphocytes/100 WBC (Bld) 26.5 % Normal 20.0-45.0 [facility] Comment on above: Performed By: #### 5 0103 #### [facility] [address] [facility] [place] [address], [facility] MCH (RBC) [Entitic mass] 27.4 pg Normal 27.0-33.0 [facility] Comment on above: Performed By: #### 5 0103 #### [facility] [address] [facility] [place] [address], [facility] MCHC (RBC) [Mass/Vol] 32.8 g/dL Normal 32.0-35.0 [facility] Comment on above: Performed By: #### 5 0103 #### [facility] [address] [facility] [place] [address], [facility] MCV (RBC) [Entitic vol] 83.5 fL Normal 82.0-98.0 [facility] Comment on above: Performed By: #### 5 0103 #### [facility] [address] [facility] [place] [address], [facility] Monocytes (Bld) [#/Vol] 0.5 10*3/uL Normal 0.1-1.0 [facility] Comment on above: Performed By: #### 5 0103 #### [facility] [address] [facility] [place] [address], [facility] MONOS 5.0 % Normal 5.0-12.0 [facility] Comment on above: Performed By: #### 5 0103 #### [facility] [address] [facility] [place] [address], [facility] Neutrophils/100 WBC (Bld) 65.9 % Normal 40.0-72.0 [facility] Comment on above: Performed By: #### 5 3 #### [facility] [address] [place] [address], [facility] Nucleated RBC/100 WBC (Bld) [Ratio] 0 % Normal 0-0 [facility] Comment on above: Performed By: #### 5 0103 #### [address] PLAT CNT 290 10*3/uL Normal 150-400 [facility] Comment on above: Performed By: #### 5 0103 #### [address] RBC (Bld) [#/Vol] 4.86 10*6/uL Normal 3.80-5.00 [facility] Comment on above: Performed By: #### 5 0103 #### [address] WBC (Bld) [#/Vol] 9.68 10*3/uL Normal 4.00-10.60 [facility] Comment on above: Performed By: #### 5 0103 #### [address] KNEE RIGHT 1 OR 2 [facility] 06-05 KNEE RIGHT 1 OR 2 VWS [facility] Department of Radiology [address] [place] [id number] ======== Patient Name: MICHELLE BE : 1960 Sex: F Age: Race: White Pt. 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 Transcribed by: [email or web address], User Resident: Electronically Signed by: DEBRA DEL CID @ 06/30/2018 11:52 AM [place] [facility] Comment on above: Order Comment: , Mabel ws (X-RAY, KNEE): Radiologic Protocol , Weight Bearing?: N , With or Without Brace/Cast/Collar: With , Views (X-RAY, KNEE): Radiologic Protocol , Weight Bearing?: N , With or Without Brace/Cast/Collar: With , , , Ordering Provider - AHSAN BINGHAM PA-C , PROTHROMBIN TIMEon 9 INR Coag (PPP) [Relative time] 0.98 {INR} Normal 0.91-1.16 [facility] Comment on above: Result Comment: ACCC [...] CHEST 1995;108:231S-246S. Performed By: #### 5 [id number], [id number] #### [facility] [employer] [facility] [place] [address], [facility] PT Coag (PPP) [Time] 13.0 s Normal 12.3-14.8 [facility] Comment on above: Result Comment: ALL RESULTS MUST BE INTERPRETED WITH RESPECT TO BLOOD DRAWING ARTIFACT OR DILUTION ERROR OF ANTICOAGULANT AT THE TIME OF SAMPLING. Performed By: #### 5 6101, [id number] #### [facility] [address] [facility] [place] [address], [facility] KNEE RIGHT 3 VWSon 9 KNEE RIGHT 3 VWS [facility] Department of Radiology [address] [place] [id number] ======== Patient Name: MICHELLE BE : [...] ZHANG PA-C , Exam: KNEE RIGHT 3 [facility] ======== KNEE RIGHT 3 S [...] effusion Electronically signed by:Anup Ellison. Transcribed by: [email or web address], User Resident: Electronically Signed by: ANUP ELLISON @ 06/15/2018 03:50 PM Normal [facility] Comment on above: Order Comment: , Isaiah ght Bearing?: Y , Weight Bearing?: Y , , , Ordering Provider - AMPARO ZHANG PA-C , Vital Signs Date Time Vital Sign Value Performing Clinician Facility 11-14-2024 10:16-0400 Body mass index (BMI) [Ratio] 47.62 kg/m2 Adelaida Carrion AUDIO/VISUAL MANAGER Work Phone: [facility] 11-14-2024 10:16-0400 Body temperature 97.81 [degF] Adelaidamonse Carrion AUDIO/VISUAL MANAGER Work Phone: [facility] 11-14-2024 10:16-0400 Body weight 125.83 kg Adelaida Sheyla AUDIO/VISUAL MANAGER Work Phone: [facility] 11-14-2024 10:16-0400 Diastolic blood pressure 84 mm[Hg] Adelaida Sheyla AUDIO/VISUAL MANAGER Work Phone: [facility] 11-14-2024 10:16-0400 Heart rate 70 /min Adelaida Sheyla AUDIO/VISUAL MANAGER Work Phone: [facility] 11-14-2024 10:16-0400 Respiratory rate 20 /min Adelaida Sheyla AUDIO/VISUAL MANAGER Work Phone: [facility] 11-14-2024 10:16-0400 SaO2% (BldA) [Mass fraction] 98 % Adelaida Carrion AUDIO/VISUAL MANAGER Work Phone: [facility] 11-14-2024 10:16-0400 Systolic blood pressure 124 mm[Hg] Adelaida Sousakushz AUDIO/VISUAL MANAGER Work Phone: [facility] 10-27-2024 10:05-0400 Body height 162.6 cm Harrison Pocos DO Work Phone: [facility] 10-27-2024 10:05-0400 Body mass index (BMI) [Ratio] 47.55 kg/m2 Harrison Pocos DO Work Phone: [facility] 10-27-2024 10:05-0400 Body weight 125.65 kg Harrison Pocos DO Work Phone: [facility] 10-13-2024 08:42-0400 Body mass index (BMI) [Ratio] 48.75 kg/m2 Adelaida Yingmaqrueskushz AUDIO/VISUAL MANAGER Work Phone: [facility] 10-13-2024 08:42-0400 Body temperature 98.49 [degF] Adelaida Sheyla AUDIO/VISUAL MANAGER Work Phone: [facility] 10-13-2024 08:42-0400 Body weight 128.82 kg Adelaidamonse Sousakushz AUDIO/VISUAL MANAGER Work Phone: [facility] 10-13-2024 08:42-0400 Diastolic blood pressure 80 mm[Hg] Adelaida Kelsiez AUDIO/VISUAL MANAGER Work Phone: [facility] 10-13-2024 08:42-0400 Heart rate 85 /min Adelaida Kelsiez AUDIO/VISUAL MANAGER Work Phone: [facility] 10-13-2024 08:42-0400 Respiratory rate 20 /min Adelaida Yingmarquesholz AUDIO/VISUAL MANAGER Work Phone: [facility] 10-13-2024 08:42-0400 SaO2% (BldA) [Mass fraction] 95 % Adelaida Kelsiez AUDIO/VISUAL MANAGER Work Phone: [facility] 10-13-2024 08:42-0400 Systolic blood pressure 132 mm[Hg] Adelaida Kelsiez AUDIO/VISUAL MANAGER Work Phone: [facility] 08-16-2024 11:25-0400 Body mass index (BMI) [Ratio] 48.23 kg/m2 Adelaida Merryholz AUDIO/VISUAL MANAGER Work Phone: [facility] 08-16-2024 11:25-0400 Body temperature 98.49 [degF] Adelaida Aichholz AUDIO/VISUAL MANAGER Work Phone: [facility] 08-16-2024 11:25-0400 Body weight 127.46 kg Adelaida Aichholz AUDIO/VISUAL MANAGER Work Phone: [facility] 08-16-2024 11:25-0400 Diastolic blood pressure 82 mm[Hg] Adelaida Aichholz AUDIO/VISUAL MANAGER Work Phone: [facility] 08-16-2024 11:25-0400 Heart rate 67 /min Adelaida Aichholz AUDIO/VISUAL MANAGER Work Phone: [facility] 08-16-2024 11:25-0400 Respiratory rate 18 /min Adelaida Aichholz AUDIO/VISUAL MANAGER Work Phone: [facility] 08-16-2024 11:25-0400 SaO2% (BldA) [Mass fraction] 97 % Adelaida Yinghholz AUDIO/VISUAL MANAGER Work Phone: [facility] 08-16-2024 11:25-0400 Systolic blood pressure 120 mm[Hg] Adelaida Yinghholz AUDIO/VISUAL MANAGER Work Phone: [facility] 07-27-2024 11:16-0400 Body mass index (BMI) [Ratio] 50.67 kg/m2 Adelaida Yinghholz AUDIO/VISUAL MANAGER Work Phone: [facility] 07-27-2024 11:16-0400 Body temperature 98.8 [degF] Adelaida Aichholz AUDIO/VISUAL MANAGER Work Phone: [facility] 07-27-2024 11:16-0400 Body weight 133.9 kg Adelaida Aichholz AUDIO/VISUAL MANAGER Work Phone: [facility] 07-27-2024 11:16-0400 Diastolic blood pressure 86 mm[Hg] Adelaida Aichholz AUDIO/VISUAL MANAGER Work Phone: [facility] 07-27-2024 11:16-0400 Heart rate 82 /min Adelaida Carrion AUDIO/VISUAL MANAGER Work Phone: [facility] 07-27-2024 11:16-0400 Respiratory rate 24 /min Adelaida Carrion AUDIO/VISUAL MANAGER Work Phone: [facility] 07-27-2024 11:16-0400 SaO2% (BldA) [Mass fraction] 97 % Adelaida Carrion AUDIO/VISUAL MANAGER Work Phone: [facility] 07-27-2024 11:16-0400 Systolic blood pressure 124 mm[Hg] Adelaida Carrion AUDIO/VISUAL MANAGER Work Phone: [facility] 07-26-2024 10:48-0400 [...] 132.9 kg Juany Lowe PA Work Phone: [facility] [...] 10:04-0500 Body height 162.6 cm Adelaida Kelsiez AUDIO/VISUAL MANAGER Work Phone: [facility] 05-12-2024 10:04-0500 Body mass index (BMI) [Ratio] 49.16 kg/m2 Adelaida Merryholz AUDIO/VISUAL MANAGER Work Phone: [facility] 05-12-2024 10:04-0500 Body temperature 98.49 [degF] Adelaida Yinghholz AUDIO/VISUAL MANAGER Work Phone: [facility] 05-12-2024 10:04-0500 Body weight 129.91 kg Adelaida Yinghholz AUDIO/VISUAL MANAGER Work Phone: [facility] 05-12-2024 10:04-0500 Diastolic blood pressure 78 mm[Hg] Adelaida Yinghholz AUDIO/VISUAL MANAGER Work Phone: [facility] 05-12-2024 10:04-0500 Heart rate 80 /min Adelaida Aichholz AUDIO/VISUAL MANAGER Work Phone: [facility] 05-12-2024 10:04-0500 Respiratory rate 20 /min Adelaida Aichholz AUDIO/VISUAL MANAGER Work Phone: [facility] 05-12-2024 10:04-0500 SaO2% (BldA) [Mass fraction] 98 % Adelaida Aichholz AUDIO/VISUAL MANAGER Work Phone: [facility] 05-12-2024 10:04-0500 Systolic blood pressure 118 mm[Hg] Adelaida Iglesiasz AUDIO/VISUAL MANAGER Work Phone: [facility] 03-16-2024 09:53-0500 Body height 162.6 cm Adelaidamonse Iglesiasz AUDIO/VISUAL MANAGER Work Phone: [facility] 03-16-2024 09:53-0500 Body mass index (BMI) [Ratio] 48.41 kg/m2 Adelaidamonse Iglesiasz AUDIO/VISUAL MANAGER Work Phone: [facility] 03-16-2024 09:53-0500 Body temperature 98.01 [degF] Adelaida Iglesiasz AUDIO/VISUAL MANAGER Work Phone: [facility] 03-16-2024 09:53-0500 Body weight 127.91 kg Adelaida Sousaholz AUDIO/VISUAL MANAGER Work Phone: [facility] 03-16-2024 09:53-0500 Diastolic blood pressure 80 mm[Hg] Adelaida Iglesiasz AUDIO/VISUAL MANAGER Work Phone: [facility] 03-16-2024 09:53-0500 Heart rate 79 /min Adelaida Merryholz AUDIO/VISUAL MANAGER Work Phone: [facility] 03-16-2024 09:53-0500 Respiratory rate 18 /min Adelaidamonse Sousaholz AUDIO/VISUAL MANAGER Work Phone: [facility] 03-16-2024 09:53-0500 SaO2% (BldA) [Mass fraction] 98 % Adelaidamonse Iglesiasz AUDIO/VISUAL MANAGER Work Phone: [facility] 03-16-2024 09:53-0500 Systolic blood pressure 120 mm[Hg] Adelaida Yinghholz AUDIO/VISUAL MANAGER Work Phone: [facility] 03-10-2024 15:20-0500 Body height 162.6 cm Rachel REDDY Work Phone: [facility] 03-10-2024 15:20-0500 Body mass index (BMI) [Ratio] 48.41 kg/m2 Rachel Hill PA Work Phone: [facility] 03-10-2024 15:20-0500 Body weight 127.91 kg Rachel Hill PA Work Phone: [facility] 03-10-2024 15:20-0500 Diastolic blood pressure 68 mm[Hg] Rachel Hill PA Work Phone: [facility] 03-10-2024 15:20-0500 Heart rate 74 /min Rachel Hill PA Work Phone: [facility] 03-10-2024 15:20-0500 Respiratory rate 16 /min Rachel Hill PA Work Phone: [facility] 03-10-2024 15:20-0500 SaO2% (BldA) [Mass fraction] 98 % Rachel Hill PA Work Phone: [facility] [...] 162.6 cm Adelaida Carrion NP Work Phone: [facility] 02-16-2024 11:18-0500 Body mass index (BMI) [Ratio] 50.77 kg/m2 Adelaida Carrion AUDIO/VISUAL MANAGER Work Phone: [facility] 02-16-2024 11:18-0500 Body temperature 98.49 [degF] Adelaida Iglesiasz AUDIO/VISUAL MANAGER Work Phone: [facility] 02-16-2024 11:18-0500 Body weight 134.17 kg Adelaida Iglesiasz AUDIO/VISUAL MANAGER Work Phone: [facility] 02-16-2024 11:18-0500 Diastolic blood pressure 82 mm[Hg] Adelaidamonse Iglesiasz AUDIO/VISUAL MANAGER Work Phone: [facility] 02-16-2024 11:18-0500 Heart rate 69 /min Adelaida Iglesiasz AUDIO/VISUAL MANAGER Work Phone: [facility] 02-16-2024 11:18-0500 Respiratory rate 20 /min Adelaidamonse Iglesiasz AUDIO/VISUAL MANAGER Work Phone: [facility] 02-16-2024 11:18-0500 SaO2% (BldA) [Mass fraction] 98 % Adelaida Iglesiasz AUDIO/VISUAL MANAGER Work Phone: [facility] 02-16-2024 11:18-0500 Systolic blood pressure 122 mm[Hg] Adelaida Iglesiasz AUDIO/VISUAL MANAGER Work Phone: [facility] 01-28-2024 13:46-0400 Body height 162.6 cm Adelaida Iglesiasz AUDIO/VISUAL MANAGER Work Phone: [facility] 01-28-2024 13:46-0400 Body mass index (BMI) [Ratio] 48.99 kg/m2 Adelaidamonse Iglesiasz AUDIO/VISUAL MANAGER Work Phone: [facility] 01-28-2024 13:46-0400 Body temperature 98.71 [degF] Adelaida Iglesiasz AUDIO/VISUAL MANAGER Work Phone: [facility] 01-28-2024 13:46-0400 Body weight 129.46 kg Adelaidamonse Iglesiasz AUDIO/VISUAL MANAGER Work Phone: [facility] 01-28-2024 13:46-0400 Diastolic blood pressure 78 mm[Hg] Adelaida Aichholz AUDIO/VISUAL MANAGER Work Phone: [facility] 01-28-2024 13:46-0400 Heart rate 81 /min Adelaida Aichholz AUDIO/VISUAL MANAGER Work Phone: [facility] 01-28-2024 13:46-0400 Respiratory rate 18 /min Adelaida Aichholz AUDIO/VISUAL MANAGER Work Phone: [facility] 01-28-2024 13:46-0400 SaO2% (BldA) [Mass fraction] 99 % Adelaida Aichholz AUDIO/VISUAL MANAGER Work Phone: [facility] 01-28-2024 13:46-0400 Systolic blood pressure 110 mm[Hg] Adelaida Aichholz AUDIO/VISUAL MANAGER Work Phone: [facility] 01-04-2024 09:39-0400 Body height 162.6 cm Adelaida Aichholz AUDIO/VISUAL MANAGER Work Phone: [facility] 01-04-2024 09:39-0400 Body mass index (BMI) [Ratio] 48.75 kg/m2 Adelaida Aichholz AUDIO/VISUAL MANAGER Work Phone: [facility] 01-04-2024 09:39-0400 Body temperature 97.81 [degF] Adelaida Yinghholz AUDIO/VISUAL MANAGER Work Phone: [facility] 01-04-2024 09:39-0400 Body weight 128.82 kg Adelaida Aichholz AUDIO/VISUAL MANAGER Work Phone: [facility] 01-04-2024 09:39-0400 Diastolic blood pressure 78 mm[Hg] Adelaida Aichholz AUDIO/VISUAL MANAGER Work Phone: [facility] 01-04-2024 09:39-0400 Heart rate 67 /min Adelaida Aichholz AUDIO/VISUAL MANAGER Work Phone: [facility] 01-04-2024 09:39-0400 Respiratory rate 19 /min Adelaida Aichholz AUDIO/VISUAL MANAGER Work Phone: [facility] 01-04-2024 09:39-0400 SaO2% (BldA) [Mass fraction] 99 % Adelaida Sousabob AUDIO/VISUAL MANAGER Work Phone: [facility] 01-04-2024 09:39-0400 Systolic blood pressure 116 mm[Hg] Adelaida Iglesiasnena AUDIO/VISUAL MANAGER Work Phone: [facility] 12-09-2023 10:14-0400 Body height 162.6 cm Juany Singhmor AUDIO/VISUAL MANAGER Work Phone: [facility] 12-09-2023 10:14-0400 Body mass index (BMI) [Ratio] 48.92 kg/m2 Juany Gillmor AUDIO/VISUAL MANAGER Work Phone: [facility] 12-09-2023 10:14-0400 Body weight 129.28 kg Juany Singhmor AUDIO/VISUAL MANAGER Work Phone: [facility] 12-09-2023 10:14-0400 Diastolic blood pressure 78 mm[Hg] Juany Singhmor AUDIO/VISUAL MANAGER Work Phone: [facility] 12-09-2023 10:14-0400 SaO2% (BldA) [Mass fraction] 97 % Juany Samanthamor AUDIO/VISUAL MANAGER Work Phone: [facility] 12-09-2023 10:14-0400 Systolic blood pressure 122 mm[Hg] Juany Gillmor AUDIO/VISUAL MANAGER Work Phone: [facility] 12-08-2023 15:24-0400 Body height 162.6 cm Sonam Clevelandnagel AUDIO/VISUAL MANAGER Work Phone: [facility] 12-08-2023 15:24-0400 Body mass index (BMI) [Ratio] 48.92 kg/m2 Sonam Windnagel AUDIO/VISUAL MANAGER Work Phone: [facility] 12-08-2023 15:24-0400 Body weight 129.28 kg Sonam Windnagel AUDIO/VISUAL MANAGER Work Phone: [facility] 12-08-2023 15:24-0400 Diastolic blood pressure 77 mm[Hg] Sonam Clevelandnagel AUDIO/VISUAL MANAGER Work Phone: [facility] 12-08-2023 15:24-0400 Heart rate 72 /min Sonam Brown AUDIO/VISUAL MANAGER Work Phone: [facility] 12-08-2023 15:24-0400 Systolic blood pressure 134 mm[Hg] Sonam Brown AUDIO/VISUAL MANAGER Work Phone: [facility] 05-18-2023 16:30-0500 Body height 162.6 cm Adelaida Kelsiez AUDIO/VISUAL MANAGER Work Phone: [facility] 05-18-2023 16:30-0500 Body mass index (BMI) [Ratio] 47.89 kg/m2 Adelaida Aichholz AUDIO/VISUAL MANAGER Work Phone: [facility] 05-18-2023 16:30-0500 Body temperature 97.3 [degF] Adelaida Yinghholz AUDIO/VISUAL MANAGER Work Phone: [facility] 05-18-2023 16:30-0500 Body weight 126.55 kg Adelaida Yinghholz AUDIO/VISUAL MANAGER Work Phone: [facility] 05-18-2023 16:30-0500 Diastolic blood pressure 80 mm[Hg] Adelaida Aichholz AUDIO/VISUAL MANAGER Work Phone: [facility] 05-18-2023 16:30-0500 Heart rate 76 /min Adelaida Aichholz AUDIO/VISUAL MANAGER Work Phone: [facility] 05-18-2023 16:30-0500 Respiratory rate 19 /min Adelaida Aichholz AUDIO/VISUAL MANAGER Work Phone: [facility] 05-18-2023 16:30-0500 SaO2% (BldA) [Mass fraction] 97 % Adelaida Aichholz AUDIO/VISUAL MANAGER Work Phone: [facility] 05-18-2023 16:30-0500 Systolic blood pressure 134 mm[Hg] Adelaida Aichholz AUDIO/VISUAL MANAGER Work Phone: [facility] 03-23-2023 12:10-0500 Diastolic blood pressure 98 mm[Hg] Adelaida Aichholz Work Phone: [place] [facility] 03-23-2023 12:10-0500 Heart rate 76 /min Adelaida Aichholz Work Phone: [facility] 03-23-2023 12:10-0500 Respiratory rate 18 /min Adelaida Aichholz Work Phone: [facility] 03-23-2023 12:10-0500 SaO2% (BldA) [Mass fraction] 99 % Adelaida Aichholz Work Phone: [facility] 03-23-2023 12:10-0500 Systolic blood pressure 162 mm[Hg] Adelaida Aichholz Work Phone: [facility] 03-23-2023 10:53-0500 Body height 162.56 cm Adelaida Aichholz Work Phone: [facility] 03-23-2023 10:53-0500 Body weight 125.64 kg Adelaida Aicmarquesholz Work Phone: [facility] 12-19-2022 14:55-0400 Body height 162.56 cm Rosemary Marita Other [employer] Other 12-19-2022 14:55-0400 Body mass index (BMI) [Ratio] 47.85 kg/m2 Rosemary Marita Other [employer] Other 12-19-2022 14:55-0400 Body temperature 97.8 [degF] Rosemary Marita Other [employer] Other 12-19-2022 14:55-0400 Body weight 126.46 kg Rosemary Marita Other [employer] Other 12-19-2022 14:55-0400 Respiratory rate 20 /min Rosemary Marita Other [employer] Other 12-19-2022 14:55-0400 SaO2% (BldA) [Mass fraction] 95 % Rosemary Kirkland Other [facility] [employer] Other 11-20-2022 13:12-0400 Body temperature 97.7 [degF] Adelaida Aichholz Work Phone: [facility] 11-20-2022 13:12-0400 SaO2% (BldA) [Mass fraction] 96 % Adelaida Aichholz Work Phone: [facility] 11-20-2022 07:44-0400 Diastolic blood pressure 90 mm[Hg] Adelaida Aichholz Work Phone: [facility] 11-20-2022 07:44-0400 Heart rate 103 /min Adelaida Aichholz Work Phone: [facility] 11-20-2022 07:44-0400 Systolic blood pressure 152 mm[Hg] Adelaida Aichholz Work Phone: [facility] 11-19-2022 20:00-0400 Respiratory rate 18 /min Adelaida Aichholz Work Phone: [facility] 11-18-2022 15:18-0400 Body height 162.56 cm Adelaida Aichholz Work Phone: [facility] 11-17-2022 09:00-0400 Body weight 122.92 kg Adelaida Aichholz Work Phone: [facility] Encounters Encounter Date Encounter Type Care Provider Facility Start: 11-14-2024 End: 11-14-2024 Bamboo flowsheet Adelaida Carrion AUDIO/VISUAL MANAGER Work Phone: [facility] Start: 11-14-2024 End: 11-14-2024 Bamboo flowsheet Adelaida Kelsiez AUDIO/VISUAL MANAGER Work Phone: [facility] Start: 11-14-2024 End: 11-14-2024 Office outpatient visit 25 minutes Adelaida Carrion AUDIO/VISUAL MANAGER Work Phone: [facility] Comment on above: Well woman exam with routine gynecological exam (Primary Dx); Morbid (severe) obesity due to excess calories ([facility]); Primary hypertension ; Anemia, unspecified type; Bilateral lower extremity edema; Osteoporosis, unspecified osteoporosis type, unspecified pathological fracture presence ; Chronic kidney disease, stage 3a ([facility]); Pre-diabetes Start: 11-14-2024 End: 11-14-2024 Patient encounter procedure Adelaida Carrion NP Work Phone: [facility] Start: 11-14-2024 End: 11-14-2024 ambulatory ADELAIDA CARRION Not Available Start: 11-08-2024 ambulatory Eduardo Monk Facility:[facility] Start: 10-27-2024 End: 10-27-2024 Patient encounter procedure Harrison Hoyos DO Work Phone: [facility] Comment on above: Right knee pain, uns pecified chronicity (Primary Dx); Primary osteoarthritis of right knee; Morbid obesity ([facility]) Start: 10-27-2024 End: 10-27-2024 ambulatory HARRISON Shea POCOS Not Available Start: 10-27-2024 End: 10-27-2024 ambulatory HARRISON Shea POCOS Not Available Start: 10-13-2024 End: 10-13-2024 Bamboo flowsheet Adelaida Carrion AUDIO/VISUAL MANAGER Work Phone: [facility] Start: 10-13-2024 End: 10-13-2024 Bamboo flowsheet Adelaida Carrion AUDIO/VISUAL MANAGER Work Phone: [facility] Start: 10-13-2024 End: 10-13-2024 Office outpatient visit 25 minutes Adelaida Carrion NP Work Phone: [facility] Comment on above: Disorientation (Prim zuleika Dx); Essential (primary) hypertension ; Allergic rhinitis, unspecified seasonality, unspecified trigger; Allergic rhinitis, unspecified; Gastro-esophageal reflux disease without esophagitis; Bilateral lower extremity edema; OSMANY (obstructive sleep apnea); Primary hypertension ; Osteoporosis, unspecified osteoporosis type, unspecified pathological fracture presence Start: 10-13-2024 End: 10-13-2024 ambulatory ADELAIDA SHEYLA Not Available Start: 10-10-2024 End: 10-10-2024 ambulatory Syeda Mancuso MD Facility: [facility] Start: 10-08-2024 End: 10-09-2024 Emergency department patient visit ADELAIDA CARRION [facility] Start: 09-29-2024 End: 09-29-2024 Clinisync [...] 09-19-2024 End: 09-19-2024 ambulatory Syeda Mancuso MD Facility: [facility] Start: 08-16-2024 End: 08-16-2024 Bamboo flowsheet Adelaida Carrion AUDIO/VISUAL MANAGER Work Phone: [facility] Start: 08-16-2024 End: 08-16-2024 Bamboo flowsheet Adelaida Carrion AUDIO/VISUAL MANAGER Work Phone: [facility] Start: 08-16-2024 End: 08-16-2024 Office outpatient visit 15 minutes Adelaida Carrion AUDIO/VISUAL MANAGER Work Phone: [facility] Comment on above: Primary hypertension (CMS/HCC) (Primary Dx); Bronchitis; Bilateral lower extremity edema; Morbid (severe) obesity due to excess calories (CMS/HCC); Pre-diabetes; Allergic rhinitis, unspecified seasonality, unspecified trigger; Encounter for screening mammogram for malignant neoplasm of breast; Former cigarette smoker Start: 08-16-2024 End: 08-16-2024 ambulatory ADELAIDA AICHHOLZ Not Available Start: 08-08-2024 End: 08-08-2024 ambulatory Syeda Mancuso MD Facility: [facility] Start: 07-27-2024 End: 07-27-2024 Bamboo flowsheet Adelaida Carrion AUDIO/VISUAL MANAGER Work Phone: [facility] Start: 07-27-2024 End: 07-27-2024 Bamboo flowsheet Adelaidamonse Carrion AUDIO/VISUAL MANAGER Work Phone: [facility] Start: 07-27-2024 End: 07-27-2024 Office outpatient visit 15 minutes Adelaida Carrion AUDIO/VISUAL MANAGER Work Phone: [facility] Comment on [...] Phone: [facility] Start: 07-26-2024 End: 07-26-2024 Office outpatient visit 25 minutes Juany Lowe PA Work Phone: [facility] Comment on above: OSMANY (obstructive sle ep apnea) (Primary Dx); Restless leg; 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CMS/HCC); Concentration deficit Start: 07-26-2024 End: 07-26-2024 ambulatory JUANY LOWE Not Available Start: 07-18-2024 End: 07-18-2024 ambulatory Syeda Mancuso MD Facility: [facility] Start: 06-14-2024 End: 06-14-2024 Refill Adelaida Carrion AUDIO/VISUAL MANAGER Work Phone: [facility] Comment on [...] minutes Juany Lowe PA Work Phone: [facility] Comment on above: Cerebrovascular acci dent (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 (CMS/HCC) (Primary Dx); OSMANY (obstructive sleep apnea); Metabolic encephalopathy; Restless leg; Degeneration of intervertebral disc of lumbar region with discogenic back pain and lower extremity pain Start: 05-24-2024 End: 05-24-2024 ambulatory JUANY LOWE Not Available Start: 05-23-2024 End: 05-23-2024 ambulatory Syeda Mancuso MD Facility:[facility] Start: 05-12-2024 End: 05-12-2024 Bamboo flowsheet Adelaida Carrion AUDIO/VISUAL MANAGER Work Phone: [facility] Start: 05-12-2024 End: 05-12-2024 Bamboo flowsheet Adelaida Carrion AUDIO/VISUAL MANAGER Work Phone: [facility] Start: 05-12-2024 End: 05-12-2024 Office outpatient visit 25 minutes Adelaida Carrion AUDIO/VISUAL MANAGER Work Phone: [facility] Comment on above: Primary hypertension (CMS/HCC) (Primary Dx); Chronic kidney disease, stage 3a (HCC) (CMS/HCC); Morbid (severe) obesity due to excess calories ([facility]); Body mass index (BMI) 45.0-49.9, adult ([facility]); OSMANY (obstructive sleep apnea); Hemiparesis, right ([facility]); Gastroesophageal reflux disease, unspecified whether esophagitis present; Metabolic encephalopathy; Essential (primary) hypertension ([facility]); Allergic rhinitis, unspecified; Gastro-esophageal reflux disease without esophagitis; Bilateral lower extremity edema Start: 05-12-2024 End: 05-12-2024 ambulatory ADELAIDA CARRION Not Available Start: 05-09-2024 End: 05-09-2024 ambulatory Syeda Mancuso MD Facility:[facility] Start: 04-12-2024 End: 04-12-2024 Refill Juany REDDY Work Phone: [facility] Comment on above: Transient alteration of awareness (Primary Dx); Restless leg Start: 04-07-2024 End: 04-07-2024 Patient encounter procedure David Foster PhD Work Phone: [facility] Comment on above: Metabolic encephalop athy (Primary Dx); Memory change; Altered mental status, unspecified altered mental status type; Concentration deficit; PTSD (post-traumatic stress disorder) ([facility]); Bipolar affective disorder, remission status unspecified ([facility]); Family history of dementia; 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[facility]); OSMANY (obstructive sleep apnea) Start: 04-07-2024 End: 04-07-2024 ambulatory ADELAIDA CARRION Not Available Start: 03-22-2024 End: 03-22-2024 ambulatory RACHEL MITCHELL Not Available Start: 03-16-2024 End: 03-16-2024 Bamboo flowsheet Adelaida Carrion AUDIO/VISUAL MANAGER Work Phone: [facility] Start: 03-16-2024 End: 03-16-2024 Bamboo flowsheet Adelaida Carrion AUDIO/VISUAL MANAGER Work Phone: [facility] Start: 03-16-2024 End: 03-16-2024 Office outpatient visit 25 minutes Adelaida Carrion AUDIO/VISUAL MANAGER Work Phone: [facility] Comment on above: Metabolic encephalop athy (Primary Dx); OSMANY (obstructive sleep apnea); Morbid obesity (CMS/HCC); Bilateral lower extremity edema; Tobacco dependence; Bipolar disorder with severe depression (CMS/HCC); At risk for polypharmacy; Anxiety; Primary hypertension (CMS/HCC); Right bundle branch block (RBBB) determined by electrocardiography Start: 03-16-2024 End: 03-16-2024 ambulatory ADELAIDA CARRION Not Available Start: 03-15-2024 End: 03-16-2024 Telephone encounter David Norman MA [facility] Start: 03-14-2024 End: 03-14-2024 [employer] Priceizabela Foster PhD Work Phone: [facility] Start: 03-14-2024 End: 03-14-2024 BamGarden Priceizabela Foster PhD Work Phone: [facility] Start: 03-14-2024 End: 03-14-2024 ambulatory DAVID FOSTER Not Available Start: 03-14-2024 End: 03-14-2024 Patient encounter procedure David Foster PhD Work Phone: [facility] Comment on above: Altered mental statu s, unspecified altered mental status type (Primary Dx); Memory change; Concentration deficit; 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 (CMS/HCC); PTSD (post-traumatic stress disorder) (CMS/HCC); Bipolar affective disorder, remission status unspecified (CMS/HCC); Family history of dementia Start: 03-10-2024 End: 03-10-2024 Office outpatient visit 25 minutes Rachel Mitchell PA Work Phone: [facility] Comment on above: Altered mental statu s, unspecified altered mental status type (Primary Dx); Restless leg; 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CMS/HCC); OSMANY (obstructive sleep apnea) Start: 03-10-2024 End: 03-10-2024 ambulatory RACHEL MITCHELL Not Available Start: 03-03-2024 End: 03-07-2024 Evaluation and management of inpatient Adelaida Carrion Facility:[facility] Start: 03-02-2024 End: 03-04-2024 Clinisync Result Encounter Generic External Data Provider [facility] Unsolicited Start: 03-02-2024 End: 03-04-2024 Clinisync Result Encounter Generic External Data Provider [facility] External Department Unsolicited Start: 03-02-2024 End: 03-02-2024 Refill Adelaida Carrion AUDIO/VISUAL MANAGER Work Phone: [facility] Comment on above: Yeast infection of t he skin Start: 03-01-2024 End: 03-01-2024 ambulatory JUANY LEGGETT Not Available Start: 03-01-2024 End: 03-01-2024 Office outpatient visit 25 minutes Juany REDDY Work Phone: [facility] Comment on above: Metabolic encephalop athy (Primary Dx); OSMANY (obstructive sleep apnea); Restless leg; 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 (CMS/HCC); Degeneration of intervertebral disc of lumbar region with discogenic back pain and lower extremity pain; Memory change Start: 02-28-2024 End: 02-29-2024 Refill Adelaida Carrion AUDIO/VISUAL MANAGER Work Phone: [facility] Comment on above: Allergic rhinitis, u nspecified Start: 02-24-2024 End: 02-24-2024 Refill Adelaida Carrion AUDIO/VISUAL MANAGER Work Phone: [facility] Comment on above: Essential (primary) hypertension (CMS/HCC); Allergic rhinitis, unspecified Start: 02-16-2024 End: 02-16-2024 Bamboo flowsheet Adelaida Carrion AUDIO/VISUAL MANAGER Work Phone: [facility] Start: 02-16-2024 End: 02-23-2024 Clinisync Result Encounter Adelaida Carrion AUDIO/VISUAL MANAGER Work Phone: [facility] Unsolicited Start: 02-16-2024 End: 02-23-2024 Clinisync Result Encounter Adelaida Carrion AUDIO/VISUAL MANAGER Work Phone: [facility] Unsolicited Start: 02-16-2024 End: 02-16-2024 Patient encounter procedure Adelaida Sheyla AUDIO/VISUAL MANAGER Work Phone: [facility] Start: 02-16-2024 End: 02-16-2024 Periodic preventive med est patient 40-64yrs Adelaida Sheyla AUDIO/VISUAL MANAGER Work Phone: [facility] Comment on above: Well woman exam with routine gynecological exam (Primary Dx); Morbid obesity (CMS/HCC) Start: 02-16-2024 End: 02-16-2024 ambulatory ADELAIDA SHEYLA Not Available Start: 02-04-2024 End: 02-04-2024 Refill Sonam Brown AUDIO/VISUAL MANAGER Work Phone: [facility] Comment on above: Restless leg Start: 01-28-2024 End: 01-28-2024 Bamboo flowsheet Adelaida Sheyla AUDIO/VISUAL MANAGER Work Phone: [facility] Start: 01-28-2024 End: 01-28-2024 Bamboo flowsheet Adelaida Yingmarquesbob AUDIO/VISUAL MANAGER Work Phone: [facility] Start: 01-28-2024 End: 01-28-2024 Office outpatient visit 15 minutes Adelaida Sheyla AUDIO/VISUAL MANAGER Work Phone: [facility] Comment on above: Acute cystitis witho ut hematuria (Primary Dx); Tobacco dependence; Needs flu shot; Morbid obesity (CMS/HCC) Start: 01-28-2024 End: 01-28-2024 ambulatory ADELAIDA AICHHOLZ Not Available Start: 01-25-2024 End: 01-25-2024 ambulatory Syeda Mancuso MD Facility:[facility] Start: 01-21-2024 End: 01-25-2024 Clinisync Result Encounter Generic External Data Provider [facility] External Department Unsolicited Start: 01-21-2024 End: 01-25-2024 Clinisync Result Encounter Generic External Data Provider [facility] External Department Unsolicited Start: 01-05-2024 End: 01-05-2024 Clinisync Result Encounter Adelaida Carrion AUDIO/VISUAL MANAGER Work Phone: [facility]solicited Start: 01-05-2024 End: 01-05-2024 Clinisync Result Encounter Adelaida Carrion AUDIO/VISUAL MANAGER Work Phone: [facility] Unsolicited Start: 01-04-2024 End: 01-04-2024 Bamboo flowsheet Adelaida Carrion AUDIO/VISUAL MANAGER Work Phone: [facility] Start: 01-04-2024 End: 01-04-2024 Bamboo flowsheet Adelaida Carrion AUDIO/VISUAL MANAGER Work Phone: [facility] Start: 01-04-2024 End: 01-04-2024 Office outpatient visit 25 minutes Adelaida Carrion AUDIO/VISUAL MANAGER Work Phone: [facility] Comment on above: Bilateral lower extr emity edema (Primary Dx); Essential (primary) hypertension (CMS/HCC); Allergic rhinitis, unspecified; OSMANY (obstructive sleep apnea); Primary hypertension (CMS/HCC); Morbid obesity (CMS/HCC) Start: 01-04-2024 End: 01-04-2024 ambulatory ADELAIDA CARRION Not Available Start: 12-30-2023 End: 12-30-2023 Refill Adelaida Carrion AUDIO/VISUAL MANAGER Work Phone: [facility] Comment on above: Lower extremity elis a Start: 12-09-2023 End: 12-09-2023 Office outpatient visit 25 minutes Juany Caballero AUDIO/VISUAL MANAGER Work Phone: [facility] Comment on above: OSMANY (obstructive sle ep apnea) (Primary Dx); Restless leg Start: 12-09-2023 End: 12-09-2023 ambulatory JUANY CABALLERO Not Available Start: 12-08-2023 End: 12-08-2023 ambulatory SONAM Keiry BROWN Not Available Start: 12-08-2023 End: 12-08-2023 Office outpatient visit 25 minutes Sonam Brown AUDIO/VISUAL MANAGER Work Phone: [facility] Comment on above: 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CMS /HCC) (Primary Dx); Restless leg; Metabolic encephalopathy Start: 12-08-2023 End: 12-08-2023 Bamboo flowsheet Sonam Brown AUDIO/VISUAL MANAGER Work Phone: [facility] Start: 12-08-2023 End: 12-08-2023 Bamboo flowsheet Sonam Brown AUDIO/VISUAL MANAGER Work Phone: [facility] Start: 11-27-2023 End: 11-27-2023 Refill Adelaida Carrion AUDIO/VISUAL MANAGER Work Phone: [facility] Comment on above: Yeast infection of t he skin (Primary Dx) Start: 05-21-2023 Refill Adelaida Carrion AUDIO/VISUAL MANAGER Work Phone: [facility] Comment on above: Acute cystitis with hematuria (Primary Dx) Start: 05-18-2023 End: 05-18-2023 Office outpatient visit 25 minutes Adelaida Carrion AUDIO/VISUAL MANAGER Work Phone: [facility] Comment on above: Encounter for annual wellness visit (AWV) in Medicare patient (Primary Dx); OSMANY (obstructive sleep apnea); Chronic pain disorder; Gastroesophageal reflux disease, unspecified whether esophagitis present; Overactive bladder; Lower extremity edema; Pre-diabetes; Morbid obesity ([facility]/HCC); Yeast infection of the skin; Tobacco dependence; Mood disorder ([facility]/HCC); Primary hypertension ([facility]/HCC); Left hip pain; Open wound of anterior abdominal wall, initial encounter Start: 05-18-2023 Bamboo flowsheet Adelaida Carrion AUDIO/VISUAL MANAGER Work Phone: [facility] Start: 05-18-2023 Bamboo flowsheet Adelaida Carrion AUDIO/VISUAL MANAGER Work Phone: [facility] Start: 05-18-2023 End: 05-18-2023 Patient encounter procedure Adelaida Carrion NP Work Phone: [facility] Start: 03-23-2023 End: 03-23-2023 Admission to same day surgery center Adelaida Carrion Work Phone: [facility] Work Phone: Start: 03-23-2023 End: 03-23-2023 ambulatory Adelaida Carrion Work Phone: [facility] Work Phone: Start: 02-12-2023 End: 02-12-2023 ambulatory Jace Graham Other [employer] Other Start: 02-12-2023 Telephone encounter Jace Haney [employer] Start: 12-19-2022 End: 12-19-2022 ambulatory Rosemary Kirkland Other [facility] [employer] Other Start: 12-19-2022 Office outpatient ne w 10 minutes Rosemary Kirkland [facility] José Miguel Start: 11-17-2022 End: 11-20-2022 Evaluation and management of inpatient Adelaida Carrion Work Phone: [facility] [place] [address] Work Phone: Start: 09-04-2022 ambulatory ARIAN JOHNSON . Facili ty:[facility]1 Start: 08-26-2022 ambulatory NARENDRANATH LAKSHMIPATHY . Facility:[facility] Start: 08-08-2022 End: 08-09-2022 ambulatory LIVIER CARRION Facility:[facility] Start: 07-25-2022 End: 07-26-2022 ambulatory TRAINING AND DEVELOPMENT COORDINATOR ADELAIDAMonse CARRION Facility:[facility] Start: 07-15-2022 End: 07-15-2022 ambulatory NARENDRANATH LAKSHMIPATHY . Facility:[facility] Start: 07-11-2022 ambulatory NARENDRANATH LAKSHMIPATHY . Facility:[facility] Start: 06-26-2022 End: 06-27-[address] FINA NIXON . Facility:[facility] Start: 06-11-2022 ambulatory TRAINING AND DEVELOPMENT COORDINATOR ADELAIDA CARRION Facil ity:[facility] Start: 05-21-2022 End: 06-11-2022 ambulatory LIVIER CARRION Facility:[facility] Start: 05-08-2022 End: 05-09-2022 ambulatory LIVIER CARRION Facility:[facility] Start: 04-28-2022 End: 04-28-2022 ambulatory LIVIER CARRION Facility:[facility] Start: 04-03-2022 End: 04-04-[address] FINA NIXON . Facility:[facility] Start: 03-19-2022 End: 03-20-2022 ambulatory LIVIER CARRION Facility:[facility] Start: 02-20-2022 End: 02-20-2022 ambulatory GILMER PURA Facility:[facility] Start: 01-10-2022 End: 02-12-2022 ambulatory BRIDGETTE Ca [facility] Facility:[facility] Start: 01-02-2022 End: 01-03-[address] FINA NIXON . Facility:[facility] Start: 01-01-2022 End: 01-02-2022 ambulatory BRIDGETTE Ca [facility] Facility:[facility] Start: 12-16-2021 End: 12-16-2021 ambulatory [...] 10-27-2024 Radiologic examinati on knee 3 views Harrison Hoyos DO Work Phone: Start: 09-29-2024 Radex hips bilateral with pelvis 2 views Generic External Data Provider Start: 09-26-2024 CT LUNG SCREENING LOW DOSE Adelaida Hejosue AUDIO/VISUAL MANAGER Work Phone: Start: 09-26-2024 MM TOMOSYNTHESIS SCR EENING BI Adelaida Carrion AUDIO/VISUAL MANAGER Work Phone: Start: 09-26-2024 XR SHOULDER RT MIN 2V G eneric External Data Provider Start: 09-26-2024 Mammography Adelaida ramos AUDIO/VISUAL MANAGER Work Phone: Start: 08-16-2024 Hemoglobin glycosylated a1c Adelaida Carrion AUDIO/VISUAL MANAGER Work Phone: Start: 03-02-2024 BLOOD CULTURE 1 Generic External Data Provider Start: 02-16-2024 IGP,APTIMA HPV,AGE GDLN Adelaida Carrion AUDIO/VISUAL MANAGER Work Phone: Start: 01-28-2024 Urnls dip stick/tabl et rgnt non-auto w/o micrscp Adelaida Carrion AUDIO/VISUAL MANAGER Work Phone: Start: 01-21-2024 MHPT CULT,URINE Generic External Data Provider Start: 01-05-2024 ALL BASIC METABOLIC PANEL Adelaida Carrion AUDIO/VISUAL MANAGER Work Phone: Start: 09-18-2023 Mammography Adelaida ramos AUDIO/VISUAL MANAGER Work Phone: Start: 03-23-2023 Screening colonoscopy L oneal Carrion Work Phone: Start: 03-23-2023 Colonoscopy Adelaida ramos AUDIO/VISUAL MANAGER Work Phone: Start: 09-15-2022 Mammography Adelaida ramos AUDIO/VISUAL MANAGER Work Phone: Start: 08-28-2022 Microscopic observat ion [Identifier] in Cervix by Cyto stain Adelaida Carrion AUDIO/VISUAL MANAGER Work Phone: Start: 07-02-2018 ANESTH KNEE AREA SURGERY CHAPARRITA HENDRICKS Start: 07-02-2018 REMOVAL OF SUPPORT IMPLANT SUKI CHRISTIAN Start: 07-02-2018 TREAT KNEECAP FRACTURE SUKI EBSANDRA Plan of Treatment Date Care Activity Detail Author Start: 03-23-2033 Screening for malign ant neoplasm of colon [facility] Start: 09-26-2025 Screening for malign ant neoplasm of breast Mammogram [facility] Start: 09-26-2025 Screening for malign ant neoplasm of lung Lung Cancer Screening Shared Decision Making [facility] Comment on above: Postponed from 12/05 (Other Medical Reasons) Start: 08-28-2025 Screening for malign ant neoplasm of cervix [facility] Start: 02-15-2025 Medicare Annual Well ness (AWV) Medicare Annual Wellness (AWV) [facility] Start: 2024 Influenza vaccination Influenza Vacc ine (#1) [facility] Start: 11-18-2024 End: 11-18-2024 Patient encounter procedure 11/18/2024 10:15 AM EDT Office Visit [facility] [address] [place] [address] Harrison Hoyos, DO [address] [place] [address] [facility] Start: 11-17-2024 End: 11-17-2024 Professional / ancillary services management 11/17/2024 8:45 AM EDT Ancillary Procedure [facility] [address] [place] [id number] [facility] Start: 11-14-2024 End: 11-14-2025 [...] fracture presence Chronic kidney disease, stage 3a ([facility] [facility]) Pre-diabetes Expected: 11/14/2024 (Approximate), Expires: 11/14/2025 [facility] [...] (severe) obes ity due to excess calories ([facility]) (Primary Dx); Well woman exam with routine gynecological exam; Primary hypertension ; Anemia, unspecified type; Bilateral lower extremity edema; Osteoporosis, unspecified osteoporosis type, unspecified pathological fracture presence ; Chronic kidney disease, stage 3a ([facility]); Pre-diabetes Start: 10-13-2024 End: 10-13-2025 DXA Skeletal system Views for bone density DEXA bone density Imaging Routine Osteoporosis, unspecified osteoporosis type, unspecified pathological fracture presence Expected: 10/13/2024 (Approximate), Expires: 10/13/2025 [facility] Work Phone: Comment on above: Expected: 10/13/2024 (Approximate), Expires: 10/13/2025 Start: 10-13-2024 End: 10-13-2024 Patient encounter procedure 10/13/2024 9:00 AM EDT Office Visit [facility] [address] [place] [phone] Adelaida Carrion NP [address] [place] [phone] Arrived [facility] Comment on above: Arrived Start: 09-22-2024 End: 09-22-2024 Patient encounter procedure 09/22/2024 11:00 AM EDT Office Visit [facility] [address] [place] [phone] Rachel Mitchell PA [address] [place] [address] [facility] Start: 09-17-2024 Screening for malign [...] Start: 08-16-2024 End: 08-16-2024 Patient encounter procedure [facility] Comment on above: Bronchitis (Primary Dx); Primary hypertension (CMS/HCC); Bilateral lower extremity edema; Morbid (severe) obesity due to excess calories (CMS/HCC); Pre-diabetes Start: 08-11-2024 End: 08-11-2024 Patient encounter procedure 08/11/2024 10:30 AM EDT Office Visit [facility] [address] [place] [phone] Adelaida Carrion, AUDIO/VISUAL MANAGER [address] [place] [phone] [facility] Start: 07-27-2024 End: 07-27-2024 Patient encounter procedure 07/27/2024 11:30 AM EDT Office Visit [facility] [address] [place] [phone] Adelaida Carrion, AUDIO/VISUAL MANAGER [address] [place] [phone] Primary hypertension (CMS/HCC) (Primary Dx); Morbid (severe) obesity due to excess calories (CMS/HCC) [facility] Comment on above: Primary hypertension (CMS/HCC) (Primary Dx); Morbid (severe) obesity due to excess calories (CMS/HCC) Start: 07-26-2024 End: 07-26-2024 Patient encounter procedure [facility] Comment on above: Arrived Start: 06-22-2024 End: 06-22-2024 Patient encounter procedure 06/22/2024 11:20 AM EDT [facility] [address] [facility] [place] [address] Juany Leggett PA [address] [place] [address] [facility] [address] Start: 06-15-2024 End: 06-15-2024 Patient encounter procedure 06/15/2024 9:20 AM EDT Office Visit [facility] [address] [place] [phone] Adelaida Carrion NP [address] [place] [phone] [facility] Start: 05-24-2024 End: 05-24-[address] [facility] [place] [facility] Comment on above: Arrived Start: 05-18-2024 Medicare Annual Well ness (AWV) Medicare Annual Wellness (AWV) [facility] Start: 05-12-2024 End: 05-12-2024 Patient encounter procedure [facility] Comment on above: Primary hypertension (CMS/HCC) [...] EST Office Visit [facility] [address] [phone] [facility] Start: 04-04-2024 End: 04-04-2024 Patient encounter procedure 04/04/2024 1:20 PM EST Office Visit [facility] [address] [place] [address] Adelaida Carrion, BRIANA [address] [place] [address] [facility] Start: 03-22-2024 End: 03-22-2024 Clinical Support 03/22/2024 10:00 AM EST Clinical Support [facility] [place] [address] [place] [address] [facility] [place] [address] [facility] Start: 03-16-2024 End: 03-16-2024 [facility] Comment on above: Metabolic encephalop athy (Primary Dx); OSMANY (obstructive sleep apnea); Morbid obesity (CMS/HCC); Bilateral lower extremity edema; Tobacco dependence; Bipolar disorder with severe depression (CMS/HCC); At risk for polypharmacy; Anxiety Start: 03-14-2024 End: 03-14-2024 Patient encounter procedure 03/14/2024 10:00 AM EST Office Visit [facility] [address] [address] [place] [address] David Foster, PhD [address] [place] [id number] [facility] Start: 03-11-2024 End: 03-11-2025 EEG 2 Hour Routine EEG 2 Hour Routine Neurology Routine Altered mental status, unspecified altered mental status type Expected: 03/11/2024 (Approximate), Expires: 03/11/2025 [facility] Work Phone: Comment on above: Expected: 03/11/2024 (Approximate), Expires: 03/11/2025 Start: 03-10-2024 End: 03-10-2024 Patient encounter procedure 03/10/2024 3:40 PM EST Office Visit [facility] [address] [place] [phone] Rachel Mitchell PA [address] [facility] [address] [place] [address] [facility] Start: 03-01-2024 End: 03-01-2024 Patient encounter procedure 03/01/2024 12:00 PM EST Office Visit [facility] [place] [address] [facility] [place] [phone] Juany Leggett PA [address] [place], [place] [phone] [facility] Start: 02-29-2024 End: 02-29-2024 Patient encounter procedure 02/29/2024 2:40 PM EST Office Visit [facility] [address] [place] [phone] Sonam Brown, AUDIO/VISUAL MANAGER [address] [place] [address] [facility] Start: 02-16-2024 End: 02-15-2025 THIN PREP TIS PAP AND HR HPV DNA THIN PREP TIS PAP AND HR HPV DNA Pathology and Cytology Routine Well woman exam with routine gynecological exam Expected: 02/16/2024 (Approximate), Expires: 02/15/2025 [facility] Work Phone: Comment on above: Expected: 02/16/2024 (Approximate), Expires: 02/15/2025 Start: 02-16-2024 End: 02-16-2024 Patient encounter procedure 02/16/2024 11:30 AM EST Procedure Visit [facility] [address] [place] [phone] Adelaida Carrion NP [address] [place] [address] [facility] Start: 02-04-2024 Influenza vaccination Influenza Vacc [...] 01-28-2024 End: 01-28-2024 [facility] Comment on above: Tobacco dependence ( Primary Dx) Start: 01-04-2024 End: 01-03-2025 Basic metabolic 1998 panel - Serum or Plasma Basic metabolic panel Lab Routine Bilateral lower extremity edema Expected: 01/04/2024 (Approximate), Expires: 01/03/2025 [facility] Work Phone: Comment on above: Expected: 01/04/2024 (Approximate), Expires: 01/03/2025 Start: 01-04-2024 End: 01-04-2024 Patient encounter procedure [facility] Comment on above: Essential (primary) hypertension (CMS/HCC); Allergic rhinitis, unspecified Start: 12-09-2023 End: 12-09-2023 Patient encounter procedure 12/09/2023 10:30 AM EDT [facility] [address] [place] [address] Juany Caballero NP [address] [place], [place] [facility] [address] Start: 12-08-2023 End: 12-08-2023 Patient encounter procedure 12/08/2023 3:20 PM EDT [facility] [place] [address] [place] [address] Sonam Brown, AUDIO/VISUAL MANAGER [address] [place], [place] [phone] [facility] [address] Start: 09-16-2023 Screening for malign ant neoplasm of breast Mammogram [facility] Start: 08-17-2023 End: 08-17-2023 Patient encounter procedure 08/17/2023 9:20 AM EDT Office Visit [facility] [address] [place] [address] Adelaida Carrion BRIANA [address] [place] [phone] [facility] Start: 05-22-2023 End: 05-22-2023 Patient encounter procedure 05/22/2023 8:45 AM EST Office Visit [facility] [address] [facility] [address] [place] [address] Travon Hines PA [address] [facility] [address] [place] [address] [facility] Start: 05-18-2023 End: 05-18-2023 Patient encounter procedure 05/18/2023 4:30 PM EST Office Visit [facility] [address] [place] [phone] Adelaida Carrion NP [address] [place] [phone] Arrived [facility] Comment on above: Arrived Start: 05-18-2023 End: 05-18-2024 XR Hip - left 3 Views XR hip left 2 or 3 views Imaging Routine Left hip pain Expected: 05/18/2023 (Approximate), Expires: 05/18/2024 [facility] Work Phone: Comment on above: Expected: 05/18/2023 (Approximate), Expires: 05/18/2024 Start: 03-23-2023 [facility] Start: 11-20-2022 [facility] Start: 11-18-2022 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 [facility] Start: 11-17-2022 Hospital admission [facility] Start: 11-17-2022 [facility] Start: 12-06-1991 Screening for malign ant neoplasm of cervix HPV/Cotest [facility] Start: 1960 Medicare Annual Well ness (AWV) Medicare Annual Wellness (AWV) [facility] Start: 1960 Screening for malign ant neoplasm of colon [facility] Start: 1961 Screening for malign ant neoplasm of lung Lung Cancer Screening Shared Decision Making [facility] BLOOD CULTURE 1 BLOOD CULTURE 1 Lab Routine 03/02/2024 3:20 AM EST [facility] Patient Education [facility] Work Phone: Patient referral [facility] Work Phone: XR Knee - right 3 Views XR knee 3 views right Imaging Routine Right knee pain, unspecified chronicity 10/27/2024 8:18 AM EDT [facility] Work Phone: [facility] Immunizations Immunization Date Immunization Notes Care Provider Fa [facility] 01-28-2024 Influenza, injectabl e, Madin Nevaeh Canine Kidney, preservative free, quadrivalent Adelaida Aichholz AUDIO/VISUAL MANAGER Work Phone: [facility] 01-28-2024 influenza virus vaccine, unspecified formulation Adelaida Aichholz AUDIO/VISUAL MANAGER Work Phone: [facility] 08-17-2023 zoster vaccine recombinant Adelaida Aichholz AUDIO/VISUAL MANAGER Work Phone: [facility] 02-13-2023 influenza, injectabl e, quadrivalent, preservative free Adelaida Aichholz AUDIO/VISUAL MANAGER Work Phone: [facility] 02-13-2023 SARS-COV-2 (COVID-19 ) vaccine, mRNA, spike protein, LNP, PF, 50 mcg/0.5 mL Adelaida Aichholz AUDIO/VISUAL MANAGER Work Phone: [facility] 02-13-2023 influenza virus vaccine, unspecified formulation Adelaida Aichholz AUDIO/VISUAL MANAGER Work Phone: [facility] 02-19-2022 diphtheria, tetanus toxoids and pertussis vaccine Adelaida Aichholz AUDIO/VISUAL MANAGER Work Phone: [facility] 03-02-2021 Moderna SARS-CoV-2 Vaccination Adelaida Aichholz AUDIO/VISUAL MANAGER Work Phone: [facility] 08-24-2020 Moderna SARS-CoV-2 Vaccination Adelaida Aichholz AUDIO/VISUAL MANAGER Work Phone: [facility] 07-27-2020 Moderna SARS-CoV-2 Vaccination Adelaida Yingmarquesbob AUDIO/VISUAL MANAGER Work Phone: [facility] 05-28-2018 influenza, injectabl e, quadrivalent, preservative free Adelaida Yingmarquesbob Work Phone: [facility] 2017 pneumococcal conjuga te vaccine, 13 valent Adelaida Sheyla AUDIO/VISUAL MANAGER Work Phone: [facility] Payers Date Payer Category Payer Medicare [id number] 2022 Self-pay [id number] 2022 Medicare [id number] 2022 Medicare (Managed Care) [facility]IC[facility] [id number] 2008 Unknown [id number] 1961 Unknown [id number] 2.16.840.1.166480.3.579.2 .647 1961 Unknown [id number] 2.16.840.1.812114.3.579.2 .593 1961 Unknown [id number] 2.16.840.1.349191.3.579.2 .593 1961 Unknown [id number] 2.16.840.1.890236.3.579.2 .593 1961 Unknown [id number] 2.16.840.1.933831.3.579.2 .593 1961 Unknown [id number] 2.16.840.1.188702.3.579.2 .593 1961 Unknown [id number] 2.16.840.1.938900.3.579.2 .593 1961 Unknown [id number] 2.16.840.1.052062.3.579.2 .593 1961 Unknown [id number] 2.16.840.1.506658.3.579.2 .593 1961 Unknown [id number] 2.16.840.1.549573.3.579.2 .593 1961 Unknown [id number] 2.16.840.1.165108.3.579.2 .593 1961 Unknown [id number] 2.16.840.1.702649.3.579.2 .593 1961 Unknown [id number] 2.16.840.1.828523.3.579.2 .593 1961 Unknown [id number] 2.16.840.1.474177.3.579.2 .593 1961 Unknown [id number] 2.16.840.1.925828.3.579.2 .593 1961 Unknown [id number] 2.16.840.1.750390.3.579.2 .593 1961 Unknown [id number] 2.16.840.1.600272.3.579.2 .593 1961 Unknown [id number] 2.16.840.1.485407.3.579.2 .593 1961 Unknown [id number] 2.16.840.1.312119.3.579.2 .593 1961 Unknown [id number] 2.16.840.1.368099.3.579.2 .593 1961 Unknown [id number] 2.16.840.1.683868.3.579.2 .593 1961 Unknown [id number] 2.16.840.1.804014.3.579.2 .593 1961 Unknown [id number] 2.16.840.1.939547.3.579.2 .593 1961 Unknown [id number] 2.16.840.1.037005.3.579.2 .593 1961 Unknown [id number] 2.16.840.1.657978.3.579.2 .593 1961 Unknown [id number] 2.16.840.1.760971.3.579.2 .1286 1961 Unknown [id number] 2.16.840.1.329558.3.579.2 .196 1961 Unknown [id number] 2.16.840.1.806417.3.579.2 .196 1961 Unknown [id number] 2.16.840.1.235997.3.579.2 .196 1961 Unknown [id number] 2.16.840.1.657210.3.579.2 .196 1961 Unknown [id number] 2.16.840.1.165727.3.579.2 .196 1961 Unknown [id number] 2.16.840.1.530901.3.579.2 .196 1961 Unknown [id number] 2.16.840.1.395976.3.579.2 .196 1961 Unknown [id number] 2.16.840.1.729876.3.579.2 .1259 1961 Unknown [id number] 2.16.840.1.919693.3.579.2 .1258 1961 Unknown [id number] 2.16.840.1.389103.3.579.2 .1258 1961 Unknown [id number] 2.16.840.1.540676.3.579.2 .1258 1961 Unknown [id number] 2.16.840.1.089592.3.579.2 .1258 1961 Unknown [id number] 2.16.840.1.185627.3.579.2 .1258 1961 Unknown [id number] 2.16.840.1.581007.3.579.2 .1258 1961 Unknown [id number] 2.16.840.1.697011.3.579.2 .1258 1961 Unknown [id number] 2.16.840.1.167694.3.579.2 .1258 1961 Unknown [id number] 2.16.840.1.184590.3.579.2 .1258 1961 Unknown [id number] 2.16.840.1.391728.3.579.2 .1258 1961 Unknown [id number] 2.16.840.1.593071.3.579.2 .1258 1961 Unknown [id number] 2.16.840.1.614855.3.579.2 .1258 1961 Unknown [id number] 2.16.840.1.497968.3.579.2 .1258 1961 Unknown [id number] 2.16.840.1.826458.3.579.2 .1258 1961 Unknown [id number] 2.16.840.1.518604.3.579.2 .1258 1961 Unknown [id number] 2.16.840.1.505930.3.579.2 .1259 1961 Unknown [id number] 2.16.840.1.121955.3.579.2 .1259 1961 Unknown [id number] 2.16.840.1.477225.3.579.2 .1259 1961 Unknown [id number] 2.16.840.1.564689.3.579.2 .1259 1959 Medicare [id number] 1959 Unknown [id number] Private Health Insurance [facility] [id number] Unknown [id number] 2.16.840.1.779028.3.579.2 .531 Unknown [id number] 2.16.840.1.208436.3.579.2 .531 Social History Date Type Detail Facility Start: 11-18-2022 End: 10-14-2023 Tobacco smoking status NHIS Ex-smoker (finding) [facility] Start: 1960 Sex Assigned At Female [facility] Start: 03-25-2023 End: 08-16-2023 Sex Assigned At [facility] Start: 04-06-1976 End: 04-06-2016 History of tobacco use Current smoker [facility] Start: 04-06-1976 End: 04-06-2016 History of tobacco use Cigarette Smoker [facility] Start: 02-09-2023 End: 08-16-2023 Cigarettes smoked current (pack per day) - Reported 1 [facility] Start: 02-09-2023 End: 10-14-2023 Tobacco use and exposure Smokeless tobacco non-user [facility] Start: 05-18-2023 End: 11-14-2024 Alcohol intake Lifetime non-drinker (finding) [facility] Start: 11-13-2022 Alcohol Comment caffeine intake: 1-[address] [facility] Start: 10-01-2022 Gender identity Identifies as female gender (finding) [facility] Start: 10-01-2022 Sexual orientation Heterosexual [...] Functional status Patient at Baseline [facility] Work Phone: Mental Status Date Assessment Result Facility 11-20-2022 Cognitive function Cognitive Sta tus Patient is Progressing Toward Baseline [facility] Work Phone: Clinical Notes 10-03-2021 to 11-14-2024 Adelaida Carrion NP - 11/14/2024 10:30 AM Padmaja Carrion NP - 11/14/2024 6:38 AM Padmaja Carrion, BRIANA - 11/14/2024 6:38 AM Padmaja Carrion, BRIANA - 11/14/2024 6:37 AM EDTPatient Instructions Note [...] biotin 5 MG tablet Pt taking OTC (Qik) Calcium Citrate-Vitamin D (CITRACAL + D PO) Pt taking OTC (MitraSpan) Cannabinoids (medical cannabis) 1 each carvedilol (COREG) [...] Daily Magnesium 400 MG capsule Pt taking [email or web address]) Melatonin 12 MG tablet 1 tablet, Nightly Multiple Vitamins-Minerals (BARIATRIC MULTIVITAMINS/IRON PO) Pt taking OTC (Qik) omeprazole (PRILOSEC) 20 mg, Oral, Daily before [...] Dizziness 05/18/2023 Dysphagia Fibromyalgia Fibromyalgia Fibromyalgia, primary 2009 Gastrocnemius equinus GERD (gastroesophageal reflux disease) Heart [...] nursing note reviewed. Exam conducted with a test technician present. Constitutional: General: She is not in [...] Morbid (severe) obesity due to excess calories ([facility]) - Primary Discussed with patient their BMI [...] Morbid (severe) obesity due to excess calories ([facility]) Discussed with patient their BMI (actual, verses [...] biotin 5 MG tablet Pt taking OTC (Qik) Calcium Citrate-Vitamin D (CITRACAL + D PO) Pt taking OTC (AMAZON) Cannabinoids (medical cannabis) 1 each carvedilol (COREG) [...] Daily Magnesium 400 MG capsule Pt taking OTC(Get10) Melatonin 12 MG tablet 1 tablet, Nightly Multiple Vitamins-Minerals (BARIATRIC MULTIVITAMINS/IRON PO) Pt taking OTC (Qik) omeprazole (PRILOSEC) 20 mg, Oral, Daily before [...] Meningitis) Mother Gwen Gonzalez Kidney failure Mother Gwenjeff Gonzalez Depression Mother Gwen Carlos Neuropathy Mother Gwen Carlos Hyperlipidemia Father Arthritis Father Hypertension Father Dementia Father Heart disease Father Diabetes Maternal Grandmother SOCIAL HISTORY: Social History Tobacco Use Smoking status: Former Current packs/day: 0.00 Average packs/day: 1 pack/day for 40.0 years (40.0 ttl pk-yrs) Types: Cigarettes Start date: 1976 Quit date: 2017 Years since quittin.5 Smokeless tobacco: Never Substance [...] manages your OSMANY: Daniela Associated Problem(s): Disorientation [place] to be related to not using PAP [...] going to have out patient MRI . [place] that she had some encephalopathy with not wearing PAP She is now wearing her pap. Is back to her baseline able to remember words etc. No weakness no dizziness noted either Follows with Juany Rascon NP SUBJECTIVE: MEDICATIONS: Current Outpatient Medications Medication Instructions amLODIPine (NORVASC) 10 mg, Oral, Daily biotin 5 MG tablet Pt taking OTC (Qik) Calcium Citrate-Vitamin D (CITRACAL + D PO) Pt taking OTC (MitraSpan) carvedilol (COREG) 12.5 mg, Oral, 2 times [...] Daily Magnesium 400 MG capsule Pt taking OTC(Get10) Melatonin 12 MG tablet 1 tablet, Nightly Multiple Vitamins-Minerals (BARIATRIC MULTIVITAMINS/IRON PO) Pt taking OTC (Qik) omeprazole (PRILOSEC) 20 mg, Oral, Daily before [...] PAP: yes has restarted with wearing it [employer] that supplies your machine and tubing/filters etc: [...] meds: amlodipine, losartan, aldactone Disorientation - Primary [place] to be related to not using PAP [...] biotin 5 MG tablet Pt taking OTC (Qik) Calcium Citrate-Vitamin D (CITRACAL + D PO) Pt taking OTC ([facility]) carvedilol (COREG) 12.5 mg, Oral, 2 times daily with meals cetirizine (ZYRTEC) 10 mg, Oral, Daily diclofenac (Voltaren) 50 MG EC tablet DULoxetine (CYMBALTA) 60 mg, 2 times daily fluticasone (Flonase) 50 MCG/ACT nasal spray 2 sprays, Each Nostril, Daily gabapentin (NEURONTIN) 300 mg, Oral, 2 times daily, Due now losartan (COZAAR) 100 mg, Oral, Daily Magnesium 400 MG capsule Pt taking OTC([facility]) Melatonin 12 MG tablet 1 tablet, Nightly Multiple Vitamins-Minerals (BARIATRIC MULTIVITAMINS/IRON PO) Pt taking OTC ([facility]) omeprazole (PRILOSEC) 20 mg, Oral, [...] Anxiety 05/18/2023 Bipolar disorder with severe depression ([facility]) 05/18/2023 Brain lesion Brain vascular malformation Chronic pain disorder Closed fracture of patella 02/04/2018 Colon polyps Constipation Degenerative cervical disc Degenerative lumbar disc Depression ([facility]) 05/18/2023 Diastolic dysfunction Dizziness 05/18/2023 Dysphagia Fibromyalgia Fibromyalgia Gastrocnemius equinus GERD (gastroesophageal reflux disease) Heart murmur Hematoma of right breast Hemiparesis ([facility]) Hemiparesis, right ([facility]) Hemorrhoid int/external hemorrhoids Hiatal hernia Iron deficiency Left foot pain 03/25/2023 Lower extremity edema Mood disorder ([facility]) mixed mood disorder OSMANY (obstructive sleep apnea) Osteoporosis ([facility]) Overactive bladder Pre-diabetes Primary hypertension ([facility]) 03/25/2023 PTSD (post-traumatic stress disorder) ([facility]) Restless leg Right knee pain Right sided weakness S/P bariatric surgery Shingles Slurred speech Stroke ([facility]) 2018 Tenosynovitis, de Quervain Thoracic back pain, [...] if not better No s/s resp distress [facility] ER- 07/24/24 Bronchitis & Leurisy Medications: [...] with chief complaint of Hospital Follow-up HPI: [facility] ER- 07/24/24 Bronchitis & Leurisy Medications: [...] biotin 5 MG tablet Pt taking OTC (Qik) Calcium Citrate-Vitamin D (CITRACAL + D PO) Pt taking OTC (MitraSpan) carvedilol (COREG) 12.5 mg, Oral, 2 times daily with meals cetirizine (ZYRTEC) 10 mg, Oral, Daily diclofenac (Voltaren) 50 MG EC tablet DULoxetine (CYMBALTA) 60 mg, 2 times daily fluticasone (Flonase) 50 MCG/ACT nasal spray 2 sprays, Each Nostril, Daily gabapentin (NEURONTIN) 300 mg, Oral, 2 times daily, Due now losartan (COZAAR) 100 mg, Oral, Daily Magnesium 400 MG capsule Pt taking OTC(Get10) Melatonin 12 MG tablet 1 tablet, Nightly Multiple Vitamins-Minerals (BARIATRIC MULTIVITAMINS/IRON PO) Pt taking OTC (Qik) omeprazole (PRILOSEC) 20 mg, Oral, Daily before [...] pain 03/25/2023 Lower extremity edema Mood disorder ([facility]) mixed mood disorder OSMANY (obstructive sleep apnea) Osteoporosis ([facility]) Overactive bladder Pre-diabetes Primary hypertension ([facility]) 03/25/2023 PTSD (post-traumatic stress disorder) ([facility]) Restless leg Right knee pain Right sided weakness S/P bariatric surgery Shingles Slurred speech Stroke ([facility]) 2018 Tenosynovitis, de Quervain Thoracic back pain, [...] Anxiety 05/18/2023 Bipolar disorder with severe depression ([facility]) 05/18/2023 Brain lesion Brain vascular [...] S/P bariatric surgery Shingles Slurred speech Stroke ([facility]) 2018 Tenosynovitis, de Quervain Thoracic back pain, [...] Review Audit Reviewed by Beronica Reyes MA (Mobile Architect) on 07/26/24 at 1049 Medication Order Taking? Sig Documenting Provider Last Dose Status amLODIPine (Norvasc) 10 MG tablet [id number] Take 1 tablet (10 mg) by mouth Daily Adelaida Carrion NP 06/11/24 235 azithromycin (Zithromax) 250 MG tablet [id number] Day #1: 2 tablets, and Day 2-5: 1 tablet daily Adelaida Carrion NP Active biotin 5 MG tablet [id number] Pt taking OTC (Qik) Historical Provider, Active Calcium Citrate-Vitamin D (CITRACAL + D PO) [id number] Pt taking OTC (MitraSpan) Historical Provider, Active carvedilol (Coreg) 12.5 MG tablet [id number] Take 1 tablet (12.5 mg) by mouth in the morning and 1 tablet (12.5 mg) in the evening. Take with meals. Adelaida Carrion NP 06/11/24 235 cetirizine (ZyrTEC) 10 MG tablet [id number] Take 1 tablet (10 mg) by mouth Daily Adelaida Carrion NP 06/11/242358 DULoxetine (Cymbalta) [address] capsule [id number] Take 60 mg by mouth in the morning and 60 mg before bedtime. Do not crush or chew.. Active fluticasone (Flonase) 50 MCG/ACT nasal spray [id number] Administer 2 sprays into each nostril Daily Adelaida Carrion NP 06/11/242358 gabapentin (Neurontin) 300 MG capsule [id number] Take 1 capsule (300 mg) by mouth in the morning and 1 capsule (300 mg) before bedtime. Due now. MAUREEN Akbar Active losartan (Cozaar) 100 MG tablet [id number] Take 1 tablet (100 mg) by mouth Daily Adelaida Carrion NP 06/11/242358 Magnesium 400 MG capsule [id number] Pt taking OTC(Get10) Historical Provider, Active Melatonin 12 MG tablet [id number] Take 1 tablet by mouth at bedtime Active Multiple Vitamins-Minerals (BARIATRIC MULTIVITAMINS/IRON PO) [id number] Pt taking OTC (Qik) Historical Provider, Active nystatin (Mycostatin) 864872 UNIT/GM powder [id number] Apply 1 application topically in the morning and 1 application before bedtime. Adelaida Carrion NP Active nystatin (Mycostatin) cream [id number] Adelaida Carrion NP Active omeprazole (PriLOSEC) [address] capsule [id number] Take 1 capsule (20 mg) by mouth in the morning. Take before meals. Adelaida Carrion NP 06/11/242358 rOPINIRole (Requip) 2 MG tablet [id number] Take 1 tablet (2 mg) by mouth at bedtime MAUREEN Akbar Active spironolactone (Aldactone) 50 MG tablet [id number] Take 1 tablet (50 mg) by mouth Daily Adelaida Carrion NP 06/11/242358 tiZANidine (Zanaflex) 4 MG tablet [id number] Take 4 mg by mouth every 8 (eight) hours if needed for muscle spasms 1-2 tablets Adelaida Carrion NP Active traZODone (Desyrel) 150 MG tablet [id number] Take 150 mg by mouth at bedtime Active Vraylar 3 MG capsule [id number] Active HPI AMS -weaned Lacosimide -denies any further headaches and dizziness -denies any recent episodes of confusion -trouble with short and prison memory -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 LUE Strength deltoid, biceps, triceps, wrist extensors, wrist extensors, wrist flexor, grinder needle tip strength 5/5. RLE Strength illopsoas, quadriceps, tibialis [...] not all inclusive. Patient was admitted to [facility] from the [facility] on 08/24/2023 with acute respiratory failure and confusion thought to be secondary to metabolic encephalopathy. MOCA 03/01/24 was 26/30. She notes she did speech therapy and responded well to this. She was recently evaluated at [facility] 03/02/2024 for severe encephalopathy. She had brain [...] Averages almost 6 hours a night. ___ [facility] evaluation 02/29/2024: Brain MRI with and without [...] of the brain in July 2019 showed [id number] white matter changes with the largest area [...] includes CVA. There is no history of CAD/ME, heart failure or PVD. GERD She reports [...] biotin 5 MG tablet Pt taking OTC (Qik) Calcium Citrate-Vitamin D (CITRACAL + D PO) Pt taking OTC (MitraSpan) carvedilol (COREG) 12.5 mg, Oral, 2 times [...] Daily Magnesium 400 MG capsule Pt taking OTC(Get10) Melatonin 12 MG tablet 1 tablet, Nightly Multiple Vitamins-Minerals (BARIATRIC MULTIVITAMINS/IRON PO) Pt taking OTC (Qik) nystatin (Mycostatin) [id number] UNIT/GM powder 1 application , 2 times [...] Anxiety 05/18/2023 Bipolar disorder with severe depression ([facility]) 05/18/2023 Brain lesion Brain vascular malformation Chronic pain disorder Closed fracture of patella 02/04/2018 Colon polyps Constipation Degenerative cervical disc Degenerative lumbar disc Depression ([facility]) 05/18/2023 Diastolic dysfunction Dizziness 05/18/2023 Dysphagia Fibromyalgia Fibromyalgia Gastrocnemius equinus GERD (gastroesophageal reflux disease) Heart murmur Hematoma of right breast Hemiparesis ([facility]) Hemiparesis, right ([facility]) Hemorrhoid int/external hemorrhoids Hiatal hernia Iron deficiency Left foot pain 03/25/2023 Lower extremity edema Mood disorder ([facility]) mixed mood disorder OSMANY (obstructive sleep apnea) Osteoporosis ([facility]) Overactive bladder Pre-diabetes Primary hypertension ([facility]) 03/25/2023 PTSD (post-traumatic stress disorder) ([facility]) Restless leg Right knee pain Right sided weakness S/P bariatric surgery Shingles Slurred speech Stroke ([facility]) 2018 Tenosynovitis, de Quervain Thoracic back pain, [...] year Body mass index (BMI) 45.0-49.9, adult ([facility]) Other Visit Diagnoses Essential (primary) hypertension (CMS/HCC) [...] homebody. 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 Diagnosed with OSMANY and RLS, wears CPAP nightly. Pain complaints include fibromyalgia and degenerative disc disease. Also has prior history of migraines which have resolved over the past 17 years. Neurological history includes small left thalamic stroke in 2016. MoCA 26/30. Patient accurately recalled this screening measure as well as her overall performance and score on it. Admitted to [facility] from the [facility] on 08/24/2023 with acute respiratory failure and confusion thought to be secondary to metabolic encephalopathy. LTME in August 2023 negative. Recently evaluated at [facility] on 03/02/2024 for severe encephalopathy. Brain MRI [...] any history of alcohol/substance abuse. Reformed smoker. Qagan [place] language [place]. [place] Completed a bachelor's degree. 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 Currently on disability. Resides with of 26 years along with her son, grandson, and 2 dogs. Has 2 children from a prior relationship. MEDICAL HISTORY/MEDICATION: MEDICATIONS: Current Outpatient Medications Medication Instructions amLODIPine (NORVASC) 10 mg, Oral, Daily biotin 5 MG tablet Pt taking OTC (Qik) Calcium Citrate-Vitamin D (CITRACAL + D PO) Pt taking OTC (MitraSpan) carvedilol (COREG) 12.5 mg, Oral, 2 times [...] Daily Magnesium 400 MG capsule Pt taking OTC(Get10) Melatonin 12 MG tablet 1 tablet, Oral, Nightly Multiple Vitamins-Minerals (BARIATRIC MULTIVITAMINS/IRON PO) Pt taking OTC (Qik) nystatin (Mycostatin) [id number] UNIT/GM powder 1 application , 2 times [...] design >16th %ile. Motor/Speed of Processing: Right-handed. 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 Recognition discriminability 93rd [...] Please contact me with any questions at [phone]. documented in this encounter [facility] [...] memory test done on apr 07 in [place] Pt is anxious and afraid-pt father had dementia Spironolactone pt is asking for 50mg instead of 25mg Images from the original note were not included. Michelle Be is a 63 y.o. female presents with chief complaint of Anxiety HPI: Here for hospital follow up: AMS She was evaluated at [facility], was seen by Neurology reviewed notes from [...] biotin 5 MG tablet Pt taking OTC (Qik) Calcium Citrate-Vitamin D (CITRACAL + D PO) Pt taking OTC (MitraSpan) carvedilol (COREG) 12.5 mg, Oral, 2 times [...] Daily Magnesium 400 MG capsule Pt taking OTC(Get10) Melatonin 12 MG tablet 1 tablet, Oral, Nightly Multiple Vitamins-Minerals (BARIATRIC MULTIVITAMINS/IRON PO) Pt taking OTC (Qik) nystatin (Mycostatin) [id number] UNIT/GM powder 1 application , 2 times [...] Anxiety 05/18/2023 Bipolar disorder with severe depression ([facility]) 05/18/2023 Brain lesion Brain vascular malformation Chronic pain disorder Closed fracture of patella 02/04/2018 Colon polyps Constipation Degenerative cervical disc Degenerative lumbar disc Depression ([facility]) 05/18/2023 Diastolic dysfunction Dizziness 05/18/2023 Dysphagia Fibromyalgia Fibromyalgia Gastrocnemius equinus GERD (gastroesophageal reflux disease) Heart murmur Hematoma of right breast Hemiparesis ([facility]) Hemiparesis, right ([facility]) Hemorrhoid int/external hemorrhoids Hiatal hernia Iron deficiency Left foot pain 03/25/2023 Lower extremity edema Mood disorder ([facility]) mixed mood disorder OSMANY (obstructive sleep apnea) Osteoporosis ([facility]) Overactive bladder Pre-diabetes Primary hypertension ([facility]) 03/25/2023 PTSD (post-traumatic stress disorder) ([facility]) Restless leg Right knee pain Right sided weakness S/P bariatric surgery Shingles Slurred speech Stroke ([facility]) 2018 Tenosynovitis, de Quervain Thoracic back pain, [...] to have evaluation documented in this encounter [facility] 03-16-2024 Instructions Adelaida Carrion NP [...] 03-16-2024 Telephone encounter Note Yep, sent to [employer] [facility] 03-16-2024 Miscellaneous Notes Yep, sent to [employer] [facility] Patient calls and states that hospital lowered [...] performance and score on it. Admitted to [facility] from the [facility] on 08/24/2023 with acute respiratory failure and confusion thought to be secondary to metabolic encephalopathy. Previous LTME in August 2023 negative. Recently evaluated at [facility] on 03/02/2024 for severe encephalopathy. Brain MRI [...] any history of alcohol/substance abuse. Reformed smoker. Qagan [place] language [place]. [place] Completed a bachelors degree. Previously [...] Heart murmur Hematoma of right breast Hemiparesis ([facility]) Hemiparesis, right ([facility]) Hemorrhoid int/external hemorrhoids Hiatal hernia Iron deficiency Left foot pain 03/25/2023 Lower extremity edema Mood disorder ([facility]) mixed mood disorder OSMANY (obstructive sleep apnea) Osteoporosis ([facility]) Overactive bladder Pre-diabetes Primary hypertension ([facility]) 03/25/2023 PTSD (post-traumatic stress disorder) ([facility]) Restless leg Right knee pain Right sided weakness S/P bariatric surgery Shingles Slurred speech Stroke ([facility]) 2018 Tenosynovitis, de Quervain Thoracic back pain, unspecified back pain laterality, unspecified chronicity Tobacco dependence Vertigo, benign paroxysmal Yeast infection of the skin 05/18/2023 MEDICATIONS: Current Outpatient Medications Medication Instructions amLODIPine (NORVASC) 10 mg, Oral, Daily biotin 5 MG tablet Pt taking OTC (Qik) Calcium Citrate-Vitamin D (CITRACAL + D PO) Pt taking OTC [employer]) carvedilol (COREG) 12.5 mg, Oral, 2 times [...] Daily Magnesium 400 MG capsule Pt taking [email or web address]) Melatonin 12 MG tablet 1 tablet, Oral, Nightly Multiple Vitamins-Minerals (BARIATRIC MULTIVITAMINS/IRON PO) Pt taking OTC (Qik) nystatin (Mycostatin) [id number] UNIT/GM powder 1 application , Topical, 2 [...] Please contact me with any questions at [phone]. documented in this encounter [facility] [...] biotin 5 MG tablet Pt taking OTC (Qik) Calcium Citrate-Vitamin D (CITRACAL + D PO) Pt taking OTC (MitraSpan) carvedilol (COREG) 12.5 mg, Oral, 2 times [...] Daily Magnesium 400 MG capsule Pt taking [email or web address]) Melatonin 12 MG tablet 1 tablet, Oral, Nightly Multiple Vitamins-Minerals (BARIATRIC MULTIVITAMINS/IRON PO) Pt taking OTC (Qik) nystatin (Mycostatin) [id number] UNIT/GM powder 1 application , Topical, 2 [...] Anxiety 05/18/2023 Bipolar disorder with severe depression ([facility]) 05/18/2023 Brain lesion Brain vascular malformation Chronic pain disorder Closed fracture of patella 02/04/2018 Colon polyps Constipation Degenerative cervical disc Degenerative lumbar disc Depression ([facility]) 05/18/2023 Diastolic dysfunction Dizziness 05/18/2023 Dysphagia Fibromyalgia Fibromyalgia Gastrocnemius equinus GERD (gastroesophageal reflux disease) Heart murmur Hematoma of right breast Hemiparesis ([facility]) Hemiparesis, right ([facility]) Hemorrhoid int/external hemorrhoids Hiatal hernia Iron deficiency Left foot pain 03/25/2023 Lower extremity edema Mood disorder ([facility]) mixed mood disorder OSMANY (obstructive sleep apnea) Osteoporosis ([facility]) Overactive bladder Pre-diabetes Primary hypertension ([facility]) 03/25/2023 PTSD (post-traumatic stress disorder) ([facility]) Restless leg Right knee pain Right sided weakness S/P bariatric surgery Shingles Slurred speech Stroke ([facility]) 2018 Tenosynovitis, de Quervain Thoracic back pain, [...] nursing note reviewed. Exam conducted with a test technician present. Constitutional: General: She is not in [...] ER fu for UTI and dehydration. See [facility] for HPI Was sent home on Bactrim. Feels completely fine now, no fever, chills, malodorous urine, no constipation diarrhea or abd pain SUBJECTIVE: MEDICATIONS: Current Outpatient Medications Medication Instructions amLODIPine (NORVASC) 10 mg, Oral, Daily biotin 5 MG tablet Pt taking OTC (Qik) Calcium Citrate-Vitamin D (CITRACAL + D PO) Pt taking OTC (MitraSpan) carvedilol (COREG) 12.5 mg, Oral, 2 times [...] Daily Magnesium 400 MG capsule Pt taking OTC(Get10) Melatonin 12 MG tablet 1 tablet, Oral, Nightly Multiple Vitamins-Minerals (BARIATRIC MULTIVITAMINS/IRON PO) Pt taking OTC (Qik) nystatin (Mycostatin) [id number] UNIT/GM powder 1 application , Topical, 2 [...] Anxiety 05/18/2023 Bipolar disorder with severe depression ([facility]) 05/18/2023 Brain lesion Brain vascular malformation Chronic pain disorder Closed fracture of patella 02/04/2018 Colon polyps Constipation Degenerative cervical disc Degenerative lumbar disc Depression ([facility]) 05/18/2023 Diastolic dysfunction Dizziness 05/18/2023 Dysphagia Fibromyalgia Fibromyalgia Gastrocnemius equinus GERD (gastroesophageal reflux disease) Heart murmur Hematoma of right breast Hemiparesis ([facility]) Hemiparesis, right ([facility]) Hemorrhoid int/external hemorrhoids Hiatal hernia Iron deficiency Left foot pain 03/25/2023 Lower extremity edema Mood disorder ([facility]) mixed mood disorder OSMANY (obstructive sleep apnea) Osteoporosis ([facility]) Overactive bladder Pre-diabetes Primary hypertension ([facility]) 03/25/2023 PTSD (post-traumatic stress disorder) ([facility]) Restless leg Right knee pain Right sided weakness S/P bariatric surgery Shingles Slurred speech Stroke ([facility]) 2018 Tenosynovitis, de Quervain Thoracic back pain, [...] of the risks of continued smoking: stroke, ME, all forms of cancer, lung disease, and [...] Relevant Orders Flu vaccine, MDCK, quadrivalent, PF (QAS290) (Flucelvax single dose syringe) Associated Problem(s): Tobacco dependence The patient has been advised of the risks of continued smoking: stroke, ME, all forms of cancer, lung disease, and [...] compliance problems. There is no history of CAD/ME, heart failure or PVD. Identifiable causes of hypertension include sleep apnea. SUBJECTIVE: MEDICATIONS: Current Outpatient Medications Medication Instructions amLODIPine (NORVASC) 10 mg, Oral, Daily biotin 5 MG tablet Pt taking OTC (Qik) Calcium Citrate-Vitamin D (CITRACAL + D PO) Pt taking OTC Guardium) carvedilol (COREG) 12.5 mg, Oral, 2 times [...] Daily Magnesium 400 MG capsule Pt taking [email or web address]) Melatonin 12 MG tablet 1 tablet, Oral, Nightly Multiple Vitamins-Minerals (BARIATRIC MULTIVITAMINS/IRON PO) Pt taking OTC [employer]) nystatin (Mycostatin) [id number] UNIT/GM powder 1 application , Topical, 2 [...] Anxiety 05/18/2023 Bipolar disorder with severe depression ([facility]) 05/18/2023 Brain lesion Brain vascular [...] mood disorder OSMANY (obstructive sleep apnea) Osteoporosis ([facility]) Overactive bladder Pre-diabetes Primary hypertension ([facility]) 03/25/2023 PTSD (post-traumatic stress disorder) ([facility]) Restless leg Right knee pain Right sided weakness S/P bariatric surgery Shingles Slurred speech Stroke ([facility]) 2018 Tenosynovitis, de Quervain Thoracic back pain, [...] machine. She is normally seen at the [facility] and was last seen on [...] Degenerative cervical disc Degenerative lumbar disc Depression ([facility]) 05/18/2023 Diastolic dysfunction Dizziness 05/18/2023 Dysphagia Fibromyalgia Fibromyalgia Gastrocnemius equinus GERD (gastroesophageal reflux disease) Heart murmur Hematoma of right breast Hemiparesis ([facility]) Hemiparesis, right ([facility]) Hemorrhoid int/external hemorrhoids Hiatal hernia Iron deficiency Left foot pain 03/25/2023 Lower extremity edema Mood disorder ([facility]) mixed mood disorder OSMANY (obstructive sleep apnea) Osteoporosis ([facility]) Overactive bladder Pre-diabetes Primary hypertension ([facility]) 03/25/2023 PTSD (post-traumatic stress disorder) ([facility]) Restless leg Right knee pain Right sided weakness S/P bariatric surgery Shingles Slurred speech Stroke ([facility]) 2018 Tenosynovitis, de Quervain Thoracic back pain, [...] melatonin. She was last seen in the [facility] on June 24, 2023. Since [...] for short term insomnia and not for prison insomnia. She is compliant on her download [...] was counseled on the risks of stroke, ME, and sudden with OSMANY, along with the [...] Anxiety 05/18/2023 Bipolar disorder with severe depression ([facility]) 05/18/2023 Brain lesion Brain vascular malformation Chronic pain disorder Closed fracture of patella 02/04/2018 Colon polyps Constipation Degenerative cervical disc Degenerative lumbar disc Depression ([facility]) 05/18/2023 Diastolic dysfunction Dizziness 05/18/2023 Dysphagia Fibromyalgia Fibromyalgia Gastrocnemius equinus GERD (gastroesophageal reflux disease) Heart murmur Hematoma of right breast Hemiparesis ([facility]) Hemiparesis, right ([facility]) Hemorrhoid int/external hemorrhoids Hiatal hernia Iron deficiency Left foot pain 03/25/2023 Lower extremity edema Mood disorder ([facility]) mixed mood disorder OSMANY (obstructive sleep apnea) Osteoporosis ([facility]) Overactive bladder Pre-diabetes Primary hypertension ([facility]) 03/25/2023 PTSD (post-traumatic stress disorder) ([facility]) Restless leg Right knee pain Right sided weakness S/P bariatric surgery Shingles Slurred speech Stroke ([facility]) 2018 Tenosynovitis, de Quervain Thoracic back pain, [...] Review Audit Reviewed by Festus Baron MA (Mobile Architect) on 12/08/23 at 1525 Medication Order Taking? Sig Documenting Provider Last Dose Status amLODIPine (Norvasc) 10 MG tablet [id number] Take 1 tablet (10 mg) by mouth Daily Adelaida Carrion NP Active biotin 5 MG tablet [id number] Pt taking OTC (Qik) Historical ProviderMD Active Calcium Citrate-Vitamin D (CITRACAL + D PO) [id number] Pt taking OTC (MitraSpan) Historical Provider, Active Cariprazine HCl (Vraylar) 4.5 MG capsule [id number] Take 4.5 mg by mouth Daily Active carvedilol (Coreg) 12.5 MG tablet [id number] Take 1 tablet (12.5 mg) by mouth in the morning and 1 tablet (12.5 mg) in the evening. Take with meals. Adelaida Carrion NP Active cetirizine (ZyrTEC) 10 MG tablet [id number] Take 1 tablet (10 mg) by mouth Daily Adelaida Carrion NP Active clonazePAM (KlonoPIN) 1 MG tablet [id number] Take 1 tablet (1 mg) by mouth 2 (two) times a day as needed for anxiety Do not start before October 16, 2023. Sonam Brown NP 11/15/23 235 DULoxetine (Cymbalta) [address] capsule [id number] Take 60 mg by mouth in the morning and 60 mg before bedtime. Do not crush or chew.. Active fluconazole (Diflucan) 150 MG tablet [id number] 1 pill every 3 days for a total of 3 doses Adelaida Carrion NP Active fluticasone (Flonase) 50 MCG/ACT nasal spray [id number] Administer 2 sprays into each nostril Daily Adelaida Carrion NP 11/04/23 235 gabapentin (Neurontin) 300 MG capsule [id number] Take 1 capsule (300 mg) by mouth in the morning and 1 capsule (300 mg) before bedtime. Sonam Brown NP Active losartan (Cozaar) 100 MG tablet [id number] Take 1 tablet (100 mg) by mouth Daily Adelaida Carrion NP Active Magnesium 400 MG capsule [id number] Pt taking OTC(Get10) Historical ProviderMD Active Melatonin 12 MG tablet [id number] Take 1 tablet by mouth at bedtime Active Multiple Vitamins-Minerals (BARIATRIC MULTIVITAMINS/IRON PO) [id number] Pt taking OTC (amazon) Historical Provider, Active nystatin (Mycostatin) 404981 UNIT/GM powder [id number] Apply 1 application topically in the morning and 1 application before bedtime. Adelaida Carrion NP Active omeprazole (PriLOSEC) [address] capsule [id number] Take 1 capsule (20 mg) by mouth in the morning. Take before meals. Adelaida Carrion NP Active rOPINIRole (Requip) 4 MG tablet [id number] Take 1 tablet (4 mg) by mouth at bedtime Sonam Brown NP Active spironolactone (Aldactone) 25 MG tablet [id number] Take 2 tablets (50 mg) by mouth Daily Adelaida Carrion NP Active tiZANidine (Zanaflex) 2 MG tablet [id number] Take 2 mg by mouth every 8 (eight) hours Adelaida Carrion NP Active traZODone (Desyrel) 150 MG tablet [id number] Take 150 mg by mouth at bedtime Active HPI AMS -Patient was admitted to [facility] from the [facility] on 08/24/2023 with acute respiratory [...] ankle and great toe bilaterally. Coordination Right: Ediomb-qg-xmlj normal. Rapid alternating movement normal.Left: Mlngdf-rj-jkxc normal. Rapid alternating movement normal. Gait Casual gait is normal including stance, stride, and arm swing. Motor Examination RUE Strength deltoid, biceps, triceps, wrist extensors, wrist extensors, wrist flexor, grinder needle tip strength 5/5. LUE Strength deltoid, biceps, triceps, wrist extensors, wrist extensors, wrist flexor, grinder needle tip strength 5/5. RLE Strength illopsoas, quadriceps, tibialis [...] not all inclusive. Patient was admitted to [facility] from the [facility] on 08/24/2023 with acute respiratory [...] of the brain in July 2019 showed xxua-yo-bimhsrzd white matter changes with the largest area [...] (BARIATRIC MULTIVITAMINS/IRON PO) Bariatric Multivitamins/Iron nystatin (Mycostatin) [id number] UNIT/GM powder 1 application , Topical, 2 [...] Anxiety 05/18/2023 Bipolar disorder with severe depression ([facility]/HCC) 05/18/2023 Brain vascular malformation Chronic pain disorder Colon polyps Constipation Degenerative cervical disc Degenerative lumbar disc Depression ([facility]/HCC) 05/18/2023 Diastolic dysfunction Dizziness 05/18/2023 Dysphagia Fibromyalgia Gastrocnemius equinus GERD (gastroesophageal reflux disease) Heart murmur Hematoma of right breast Hemiparesis, right ([facility]/HCC) Hemorrhoid int/external hemorrhoids Hiatal hernia Iron deficiency Left foot pain 03/25/2023 Lower extremity edema Mood disorder (CMS/HCC) mixed mood disorder OSMANY (obstructive sleep apnea) Osteoporosis ([facility]) Overactive bladder Pre-diabetes Primary hypertension ([facility]) 03/25/2023 PTSD (post-traumatic stress disorder) ([facility]) Restless leg Right knee pain Right sided weakness S/P bariatric surgery Shingles Slurred speech Stroke ([facility]) 2018 Tenosynovitis, de Quervain Thoracic back pain, [...] encounter [facility] 03-23-2023 Procedure note [facility] 12-19-2022 Evaluation note Encounter Date Diagnosis Assessment Notes Dec, Skin candidiasis (ICD-10 - B37.2) Drink plenty fluids, get plenty of rest. Continue home medications as prescribed. Take the Diflucan as prescribed until gone. Follow-up with your family physician if no improvement in 2 to 3 days [employer] Other 08-17-2023 Discharge summary Author Eduardo bautista [facility] November 20, 2022 6:38am Note Date/Time November 20, 2022 6: 38am [facility] [address] [place] [address] Discharge Summary Signed Patient: Michelle Be MR#: [id number] : 1960 Acct:[id number] Age/Sex: 61 / F Adm Date: 3 Loc: 1S Room: [address] [place] [address]: Gaudencio Monk MD Copies to: MD Adelaida Álvarez, AUDIO/VISUAL MANAGER-C~ Providers Date of Discharge: 11/20/22 Discharging Provider: [...] at that time.? [place] and was then diagnosed with bipolar disorder at [facility] in [place], where she still follows with a therapist.? Sherdeisyorts that she has been with 7 therapists in the last 9 years and is currentlycompleting EMDR with her current therapist. Past hospitalizations: Her most recent hospitalization was 5 years ago [place] in [place] for the same feeling she is experiencing [...] worked since 2010 due to her fibromyalgia.? [facility]. Relationships: Reports having people [...] self or stop treatment, but to call [facility], 911 or come to the nearest emergency [...] 1 tab PO QID Follow Up: [facility] [Outside] [facility] [Outside] ( clinic office manager: (Insert date/time here) Therapy:? (insert [...] signed by Eduardo Monk MD> 11/20/22 0638 [facility] Work Phone: 1(148) 316-187208-16-2023 Progress note Author Eduardo bautista [facility] November 19, 2022 6:25am Note Date/Time November 19, 2022 6: 25am [facility] [address] [place] [address] Psychiatry Progress Note Signed Patient: Michelle Be MR#: [id number] : 1960 Acct:[id number] Age/Sex: 61 / F Adm Date: 3 Loc: Room: [address] [place] [address] Type : ADM IN Attending Dr: Gaudencio [...] by Eduardo Monk MD> 11/19/22 0625 [facility] Work Phone: 1(776) 117-428208-15-2023 Progress note Author Eduardo bautista [facility] November 18, 2022 11:01am Note Date/Time November 18, 2022 10 :11am [facility] [address] [place] [address] Psychiatry Progress Note Signed Patient: Michelle Be MR#: [id number] : 1960 Acct:[id number] Age/Sex: 61 / F Adm Date: 3 Loc: Room: 5U6254-3 Type : ADM IN Attending Dr: Gaudencio [...] by requesting a schedule 2 referring to [facility] for pain management specifically every 4-6 [...] signed by MD DA Rangel> 11/18/22 1011 [facility] Work Phone: 1(942) 533-934808-14-2023 History and physical note Author Eduardo bautista [facility] November 17, 2022 12:48pm Note Date/Time November 17, 2022 12 :48pm [facility] [address] [place] [address] Psychiatry H&P Signed Patient: Michelle Be MR#: [id number] : 1960 Acct:[id number] Age/Sex: 61 / F Adm Date: 3 Loc: Room: [address] [place] [address] Type: ADM IN Attending Dr: Gaudencio Monk [...] at that time. [place] and was then diagnosed with bipolar disorder at [facility] in [place], where she still follows with a therapist. Shereports that she has been with 7 therapists in the last 9 years and is currentlycompleting EMDR with her current therapist. Past hospitalizations: Her most recent hospitalization was 5 years ago [place] in [place] for the same feeling she is experiencing [...] equal bilaterally. CN XII: Tongue protrusion midline [facility] Medical History (Updated 11/17/22 @ [...] signed by Eduardo oMnk MD> 11/17/22 1248 [facility] Work Phone: 1(577) 579-526403-23-2023 NoteCONSULTATION CONSULTATION DATE: 06/26/2022 To: Nurse Carrion [...] L5-S1 facet joint injection under fluoroscopic guidance.[facility] [id number] NotePROCEDURE: XR SHOULDER RT 2V or > [...] Electronically authenticated by: KINGSLEY CLEMENTS Date: 2022-05-09 09:21[facility]01-23-2023 NotePROCEDURE: XR WRIST LT MIN 3 [...] Electronically authenticated by: KINGSLEY CLEMENTS Date: 2022-04-28 13:31[facility]12-29-2022 NoteCONSULTATION CONSULTATION DATE: 04/03/2022 HISTORY OF [...] her in three months, unless otherwise indicated.[facility] [id number] NoteCONSULTATION CONSULTATION DATE: 01/02/2022 This is a [...] [facility] in [place] for the compounded cream. She needs a [...] in three months' time unless otherwise indicated.[facility] [id number] NotePROCEDURE: XR ANKLE RT MIN 3 VIEWS, [...] Electronically authenticated by: KINGSLEY CLEMENTS Date: 2022-01-01 13:11[facility]09-28-2022 NotePROCEDURE: XR ANKLE RT MIN 3 [...] Electronically authenticated by: KINGSLEY CLEMENTS Date: 2022-01-01 13:11[facility]08-18-2022 NotePROCEDURE: XR FOOT RT MIN 3 VIEWS HISTORY: Pain in right foot , chronic COMPARISON: XR foot right 2020 FINDINGS: BONES:No fracture, dislocation, bone lesion. Small calcaneal degenerative enthesophytes. SOFT TISSUES:No visible soft tissue swelling. EFFUSION:None visible. OTHER: Negative. IMPRESSION: 1. No acute bone abnormality or significant degenerative joint disease. Electronically authenticated by: KINGSLEY CLEMENTS Date: 2021-11-21 16:13[facility]06-30-2022 NoteCONSULTATION CONSULTATION DATE: 10/03/2021 This is [...] and Approved by: ZELDA MCDANIEL . 10/10/2021 10:22:00[facility] Diagnosis Onset Date Resolution Status Allergies acute Bipolar 2 disorder acute Hypertension acute Morbid obesity with BMI of 45.0-49.9, adult acute OSMANY (obstructive sleep apnea) acute Restless legs syndrome acute [facility] Work Phone: Evaluation noteNo [employer] Other Evaluation noteNo assessment information available [facility] Work Phone: Evaluation note* [...] wall, initial encounter documented in this encounter [facility] HealthcareEvaluation note* Diagnosis Acute cystitis with hematuria- Primary documented in this encounter [facility] HealthcareEvaluation note* Diagnosis Left foot pain- Primary Pain in soft tissues of limb Primary hypertension (CMS/HCC) Unspecified essential hypertension Class 3 severe obesity due to excess calories without serious comorbidity with body mass index (BMI) of 45.0 to 49.9 in adult ([facility]) Encounter for annual wellness visit (AWV) in Medicare patient- Primary OSMANY (obstructive sleep apnea) Obstructive sleep apnea (adult) (pediatric) Chronic pain disorder Chronic pain syndrome Gastroesophageal reflux disease, unspecified whether esophagitis present Overactive bladder Hypertonicity of bladder Lower extremity edema Edema Pre-diabetes Other abnormal glucose Morbid obesity ([facility]) Morbid obesity Yeast infection of the skin Candidiasis of skin and nails Tobacco dependence Tobacco use disorder Mood disorder ([facility]) Unspecified episodic mood disorder Primary hypertension ([facility]) Unspecified essential hypertension Left hip pain Pain in joint, pelvic region and thigh Open wound of anterior abdominal wall, initial encounter Primary hypertension ([facility])- Primary Unspecified essential hypertension Yeast infection of the skin Candidiasis of skin and nails Morbid obesity ([facility]) Morbid obesity Primary hypertension ([facility])- Primary Unspecified essential hypertension Encounter for screening mammogram for malignant neoplasm of breast Gastroesophageal reflux disease, unspecified whether esophagitis present Acute gout of right foot, unspecified cause Osteoporosis, unspecified osteoporosis type, unspecified pathological fracture presence ([facility]) Morbid obesity ([facility]) Morbid obesity Pre-diabetes Other abnormal glucose Anemia, unspecified type Vitamin deficiency Unspecified vitamin deficiency Post-viral cough syndrome Primary hypertension ([facility])- Primary Unspecified essential hypertension Allergic rhinitis, unspecified Acute cough Morbid obesity ([facility]) Morbid obesity Former cigarette smoker Personal history of tobacco use, presenting hazards to health Toxic metabolic encephalopathy- Primary Hemiparesis, right ([facility]) Unspecified hemiplegia affecting unspecified side Acute respiratory failure with hypoxia ([facility]) Heart murmur Undiagnosed cardiac murmurs Primary hypertension ([facility]) Unspecified essential hypertension Morbid obesity ([facility]) Morbid obesity Bipolar disorder with severe depression ([facility]) Slurred speech Other speech disturbance Bilateral lower extremity edema- Primary Primary hypertension ([facility]) Unspecified essential hypertension Lower extremity edema Edema Essential (primary) hypertension ([facility]) Unspecified essential hypertension Gastro-esophageal reflux disease without esophagitis Allergic rhinitis, unspecified Bilateral lower extremity edema- Primary Morbid (severe) obesity due to excess calories ([facility]) Body mass index (BMI) 45.0-49.9, adult ([facility]) Pre-diabetes Other abnormal glucose Bilateral lower extremity edema- Primary Essential (primary) hypertension (CMS/HCC) Unspecified essential hypertension Allergic rhinitis, unspecified OSMANY (obstructive sleep apnea) Obstructive sleep apnea (adult) (pediatric) Primary hypertension ([facility]/HCC) Unspecified essential hypertension Morbid obesity ([facility]/HCC) Morbid obesity Acute cystitis without hematuria- Primary Tobacco dependence Tobacco use disorder Needs flu shot Need for prophylactic vaccination and inoculation against influenza Morbid obesity (CMS/HCC) Morbid obesity documented in this encounter [facility] HealthcareEvaluation note* Diagnosis Left foot pain- Primary Pain in soft tissues of limb Primary hypertension ([facility]) Unspecified essential hypertension Class 3 severe obesity due to excess calories without serious comorbidity with body mass index (BMI) of 45.0 to 49.9 in adult ([facility]) Encounter for annual wellness visit (AWV) in Medicare patient- Primary OSMANY (obstructive sleep apnea) Obstructive sleep apnea (adult) (pediatric) Chronic pain disorder Chronic pain syndrome Gastroesophageal reflux disease, unspecified whether esophagitis present Overactive bladder Hypertonicity of bladder Lower extremity edema Edema Pre-diabetes Other abnormal glucose Morbid obesity (CMS/[facility]) Morbid obesity Yeast infection of the skin Candidiasis of skin and nails Tobacco dependence Tobacco use disorder Mood disorder (CMS/HCC) Unspecified episodic mood disorder Primary hypertension ([facility]) Unspecified essential hypertension Left hip pain Pain in joint, pelvic region and thigh Open wound of anterior abdominal wall, initial encounter Primary hypertension ([facility]/HCC)- Primary Unspecified essential hypertension Yeast infection of the skin Candidiasis of skin and nails Morbid obesity ([facility]/HCC) Morbid obesity Primary hypertension ([facility]/HCC)- Primary Unspecified essential hypertension Encounter for screening mammogram for malignant neoplasm of breast Gastroesophageal reflux disease, unspecified whether esophagitis present Acute gout of right foot, unspecified cause Osteoporosis, unspecified osteoporosis type, unspecified pathological fracture presence ([facility]) Morbid obesity ([facility]) Morbid obesity Pre-diabetes Other abnormal glucose Anemia, unspecified type Vitamin deficiency Unspecified vitamin deficiency Post-viral cough syndrome Primary hypertension ([facility]/HCC)- Primary Unspecified essential hypertension Allergic rhinitis, unspecified Acute cough Morbid obesity ([facility]) Morbid obesity Former cigarette smoker Personal history of tobacco use, presenting hazards to health Toxic metabolic encephalopathy- Primary Hemiparesis, right (CMS/[facility]) Unspecified hemiplegia affecting unspecified side Acute respiratory failure with hypoxia ([facility]) Heart murmur Undiagnosed cardiac murmurs Primary hypertension ([facility] Unspecified essential hypertension Morbid obesity ([facility]/HCC) Morbid obesity Bipolar disorder with severe depression ([facility]) Slurred speech Other speech disturbance Bilateral lower extremity edema- Primary Primary hypertension ([facility]) Unspecified essential hypertension Lower extremity edema Edema Essential (primary) hypertension ([facility]) Unspecified essential hypertension Gastro-esophageal reflux disease without esophagitis Allergic rhinitis, unspecified Bilateral lower extremity edema- Primary Morbid (severe) obesity due to excess calories ([facility]) Body mass index (BMI) 45.0-49.9, adult ([facility]) Pre-diabetes Other abnormal glucose Bilateral lower extremity edema- Primary Essential (primary) hypertension ([facility]) Unspecified essential hypertension Allergic rhinitis, unspecified OSMANY (obstructive sleep apnea) Obstructive sleep apnea (adult) (pediatric) Primary hypertension ([facility]) Unspecified essential hypertension Morbid obesity ([facility]) Morbid obesity Acute cystitis without hematuria- Primary Tobacco dependence Tobacco use disorder Needs flu shot Need for prophylactic vaccination and inoculation against influenza Morbid obesity ([facility]) Morbid obesity Restless leg Restless legs syndrome (RLS) documented in this encounter [facility] HealthcareEvaluation note* Diagnosis Left foot pain- Primary Pain in soft tissues of limb Primary hypertension ([facility]) Unspecified essential hypertension Class 3 severe obesity due to excess calories without serious comorbidity with body mass index (BMI) of 45.0 to 49.9 in adult ([facility]) Encounter for annual wellness visit (AWV) in Medicare patient- Primary OSMANY (obstructive sleep apnea) Obstructive sleep apnea (adult) (pediatric) Chronic pain disorder Chronic pain syndrome Gastroesophageal reflux disease, unspecified whether esophagitis present Overactive bladder Hypertonicity of bladder Lower extremity edema Edema Pre-diabetes Other abnormal glucose Morbid obesity ([facility]) Morbid obesity Yeast infection of the skin Candidiasis of skin and nails Tobacco dependence Tobacco use disorder Mood disorder ([facility]) Unspecified episodic mood disorder Primary hypertension ([facility]) Unspecified essential hypertension Left hip pain Pain in joint, pelvic region and thigh Open wound of anterior abdominal wall, initial encounter Primary hypertension ([facility])- Primary Unspecified essential hypertension Yeast infection of the skin Candidiasis of skin and nails Morbid obesity ([facility]) Morbid obesity Primary hypertension ([facility])- Primary Unspecified essential hypertension Encounter for screening mammogram for malignant neoplasm of breast Gastroesophageal reflux disease, unspecified whether esophagitis present Acute gout of right foot, unspecified cause Osteoporosis, unspecified osteoporosis type, unspecified pathological fracture presence ([facility]) Morbid obesity ([facility]) Morbid obesity Pre-diabetes Other abnormal glucose Anemia, unspecified type Vitamin deficiency Unspecified vitamin deficiency Post-viral cough syndrome Primary hypertension ([facility])- Primary Unspecified essential hypertension Allergic rhinitis, unspecified Acute cough Morbid obesity ([facility]) Morbid obesity Former cigarette smoker Personal history of tobacco use, presenting hazards to health Toxic metabolic encephalopathy- Primary Hemiparesis, right ([facility]) Unspecified hemiplegia affecting unspecified side Acute respiratory failure with hypoxia ([facility]) Heart murmur Undiagnosed cardiac murmurs Primary hypertension ([facility]) Unspecified essential hypertension Morbid obesity ([facility]) Morbid obesity Bipolar disorder with severe depression ([facility]) Slurred speech Other speech disturbance Bilateral lower extremity edema- Primary Primary hypertension ([facility]) Unspecified essential hypertension Lower extremity edema Edema Essential (primary) hypertension ([facility] Unspecified essential hypertension Gastro-esophageal reflux disease without esophagitis Allergic rhinitis, unspecified Bilateral lower extremity edema- Primary Morbid (severe) obesity due to excess calories ([facility]) Body mass index (BMI) 45.0-49.9, adult ([facility] [facility]) Pre-diabetes Other abnormal glucose Bilateral lower extremity edema- Primary Essential (primary) hypertension ([facility]) Unspecified essential hypertension Allergic rhinitis, unspecified OSMANY (obstructive sleep apnea) Obstructive sleep apnea (adult) (pediatric) Primary hypertension ([facility]) Unspecified essential hypertension Morbid obesity ([facility]) Morbid obesity Acute cystitis without hematuria- Primary Tobacco dependence Tobacco use disorder Needs flu shot Need for prophylactic vaccination and inoculation against influenza Morbid obesity ([facility]) Morbid obesity Well woman exam with routine gynecological exam- Primary Routine gynecological examination Morbid obesity ([facility]) Morbid obesity documented in this encounter [facility]* Diagnosis Left foot pain- Primary Pain in soft tissues of limb Primary hypertension ([facility]) Unspecified essential hypertension Class 3 severe obesity due to excess calories without serious comorbidity with body mass index (BMI) of 45.0 to 49.9 in adult ([facility]) Encounter for annual wellness visit (AWV) in Medicare patient- Primary OSMANY (obstructive sleep apnea) Obstructive sleep apnea (adult) (pediatric) Chronic pain disorder Chronic pain syndrome Gastroesophageal reflux disease, unspecified whether esophagitis present Overactive bladder Hypertonicity of bladder Lower extremity edema Edema Pre-diabetes Other abnormal glucose Morbid obesity ([facility]) Morbid obesity Yeast infection of the skin Candidiasis of skin and nails Tobacco dependence Tobacco use disorder Mood disorder ([facility]/HCC) Unspecified episodic mood disorder Primary hypertension ([facility]) Unspecified essential hypertension Left hip pain Pain in joint, pelvic region and thigh Open wound of anterior abdominal wall, initial encounter Primary hypertension ([facility]/HCC)- Primary Unspecified essential hypertension Yeast infection of the skin Candidiasis of skin and nails Morbid obesity ([facility]) Morbid obesity Primary hypertension ([facility])- Primary Unspecified essential hypertension Encounter for screening mammogram for malignant neoplasm of breast Gastroesophageal reflux disease, unspecified whether esophagitis present Acute gout of right foot, unspecified cause Osteoporosis, unspecified osteoporosis type, unspecified pathological fracture presence ([facility]) Morbid obesity ([facility]) Morbid obesity Pre-diabetes Other abnormal glucose Anemia, unspecified type Vitamin deficiency Unspecified vitamin deficiency Post-viral cough syndrome Primary hypertension ([facility])- Primary Unspecified essential hypertension Allergic rhinitis, unspecified Acute cough Morbid obesity ([facility]) Morbid obesity Former cigarette smoker Personal history of tobacco use, presenting hazards to health Toxic metabolic encephalopathy- Primary Hemiparesis, right ([facility]) Unspecified hemiplegia affecting unspecified side Acute respiratory failure with hypoxia ([facility]) Heart murmur Undiagnosed cardiac murmurs Primary hypertension ([facility] Unspecified essential hypertension Morbid obesity ([facility]) Morbid obesity Bipolar disorder with severe depression ([facility]) Slurred speech Other speech disturbance Bilateral lower extremity edema- Primary Primary hypertension ([facility]) Unspecified essential hypertension Lower extremity edema Edema Essential (primary) hypertension ([facility]) Unspecified essential hypertension Gastro-esophageal reflux disease without esophagitis Allergic rhinitis, unspecified Bilateral lower extremity edema- Primary Morbid (severe) obesity due to excess calories ([facility]) Body mass index (BMI) 45.0-49.9, adult ([facility]) Pre-diabetes Other abnormal glucose Bilateral lower extremity edema- Primary Essential (primary) hypertension ([facility]) Unspecified essential hypertension Allergic rhinitis, unspecified OSMANY (obstructive sleep apnea) Obstructive sleep apnea (adult) (pediatric) Primary hypertension ([facility]) Unspecified essential hypertension Morbid obesity ([facility]) Morbid obesity Acute cystitis without hematuria- Primary Tobacco dependence Tobacco use disorder Needs flu shot Need for prophylactic vaccination and inoculation against influenza Morbid obesity (CMS/HCC) Morbid obesity Well woman exam with routine gynecological exam- Primary Routine gynecological examination Morbid obesity ([facility]) Morbid obesity Essential (primary) hypertension ([facility]) Unspecified essential hypertension Allergic rhinitis, unspecified documented in this encounter [facility] Healthcare[facility]* Diagnosis Left foot pain- Primary Pain in soft tissues of limb Primary hypertension ([facility]) Unspecified essential hypertension Class 3 severe obesity due to excess calories without serious comorbidity with body mass index (BMI) of 45.0 to 49.9 in adult ([facility]) Encounter for annual wellness visit (AWV) in Medicare patient- Primary OSMANY (obstructive sleep apnea) Obstructive sleep apnea (adult) (pediatric) Chronic pain disorder Chronic pain syndrome Gastroesophageal reflux disease, unspecified whether esophagitis present Overactive bladder Hypertonicity of bladder Lower extremity edema Edema Pre-diabetes Other abnormal glucose Morbid obesity ([facility]) Morbid obesity Yeast infection of the skin Candidiasis of skin and nails Tobacco dependence Tobacco use disorder Mood disorder ([facility]) Unspecified episodic mood disorder Primary hypertension ([facility]) Unspecified essential hypertension Left hip pain Pain in joint, pelvic region and thigh Open wound of anterior abdominal wall, initial encounter Primary hypertension ([facility])- Primary Unspecified essential hypertension Yeast infection of the skin Candidiasis of skin and nails Morbid obesity ([facility]) Morbid obesity Primary hypertension ([facility])- Primary Unspecified essential hypertension Encounter for screening mammogram for malignant neoplasm of breast Gastroesophageal reflux disease, unspecified whether esophagitis present Acute gout of right foot, unspecified cause Osteoporosis, unspecified osteoporosis type, unspecified pathological fracture presence ([facility]) Morbid obesity ([facility]) Morbid obesity Pre-diabetes Other abnormal glucose Anemia, unspecified type Vitamin deficiency Unspecified vitamin deficiency Post-viral cough syndrome Primary hypertension ([facility])- Primary Unspecified essential hypertension Allergic rhinitis, unspecified Acute cough Morbid obesity ([facility]) Morbid obesity Former cigarette smoker Personal history of tobacco use, presenting hazards to health Toxic metabolic encephalopathy- Primary Hemiparesis, right ([facility]) Unspecified hemiplegia affecting unspecified side Acute respiratory failure with hypoxia ([facility]) Heart murmur Undiagnosed cardiac murmurs Primary hypertension ([facility]) Unspecified essential hypertension Morbid obesity ([facility]) Morbid obesity Bipolar disorder with severe depression ([facility]) Slurred speech Other speech disturbance Bilateral lower extremity edema- Primary Primary hypertension ([facility]) Unspecified essential hypertension Lower extremity edema Edema Essential (primary) hypertension ([facility]) Unspecified essential hypertension Gastro-esophageal reflux disease without esophagitis Allergic rhinitis, unspecified Bilateral lower extremity edema- Primary Morbid (severe) obesity due to excess calories ([facility]) Body mass index (BMI) 45.0-49.9, adult ([facility]) Pre-diabetes Other abnormal glucose Bilateral lower extremity edema- Primary Essential (primary) hypertension ([facility]) Unspecified essential hypertension Allergic rhinitis, unspecified OSMANY (obstructive sleep apnea) Obstructive sleep apnea (adult) (pediatric) Primary hypertension ([facility]) Unspecified essential hypertension Morbid obesity ([facility]) Morbid obesity Acute cystitis without hematuria- Primary Tobacco dependence Tobacco use disorder Needs flu shot Need for prophylactic vaccination and inoculation against influenza Morbid obesity ([facility]) Morbid obesity Well woman exam with routine gynecological exam- Primary Routine gynecological examination Morbid obesity ([facility]) Morbid obesity Allergic rhinitis, unspecified documented in this encounter [facility]Evaluation [facility]* Diagnosis Left foot pain- Primary Pain in soft tissues of limb Primary hypertension ([facility]) Unspecified essential hypertension Class 3 severe obesity due to excess calories without serious comorbidity with body mass index (BMI) of 45.0 to 49.9 in adult ([facility]) Encounter for annual wellness visit (AWV) in Medicare patient- Primary OSMANY (obstructive sleep apnea) Obstructive sleep apnea (adult) (pediatric) Chronic pain disorder Chronic pain syndrome Gastroesophageal reflux disease, unspecified whether esophagitis present Overactive bladder Hypertonicity of bladder Lower extremity edema Edema Pre-diabetes Other abnormal glucose Morbid obesity ([facility]) Morbid obesity Yeast infection of the skin Candidiasis of skin and nails Tobacco dependence Tobacco use disorder Mood disorder ([facility]) Unspecified episodic mood disorder Primary hypertension ([facility]) Unspecified essential hypertension Left hip pain Pain in joint, pelvic region and thigh Open wound of anterior abdominal wall, initial encounter Primary hypertension ([facility])- Primary Unspecified essential hypertension Yeast infection of the skin Candidiasis of skin and nails Morbid obesity ([facility]) Morbid obesity Primary hypertension ([facility])- Primary Unspecified essential hypertension Encounter for screening mammogram for malignant neoplasm of breast Gastroesophageal reflux disease, unspecified whether esophagitis present Acute gout of right foot, unspecified cause Osteoporosis, unspecified osteoporosis type, unspecified pathological fracture presence ([facility]) Morbid obesity ([facility]) Morbid obesity Pre-diabetes Other abnormal glucose Anemia, unspecified type Vitamin deficiency Unspecified vitamin deficiency Post-viral cough syndrome Primary hypertension ([facility])- Primary Unspecified essential hypertension Allergic rhinitis, unspecified Acute cough Morbid obesity ([facility]) Morbid obesity Former cigarette smoker Personal history of tobacco use, presenting hazards to health Toxic metabolic encephalopathy- Primary Hemiparesis, right ([facility] Unspecified hemiplegia affecting unspecified side Acute respiratory failure with hypoxia ([facility]) Heart murmur Undiagnosed cardiac murmurs Primary hypertension ([facility]) Unspecified essential hypertension Morbid obesity ([facility]) Morbid obesity Bipolar disorder with severe depression ([facility]) Slurred speech Other speech disturbance Bilateral lower extremity edema- Primary Primary hypertension ([facility]) Unspecified essential hypertension Lower extremity edema Edema Essential (primary) hypertension ([facility]) Unspecified essential hypertension Gastro-esophageal reflux disease without esophagitis Allergic rhinitis, unspecified Bilateral lower extremity edema- Primary Morbid (severe) obesity due to excess calories ([facility]) Body mass index (BMI) 45.0-49.9, adult ([facility]) Pre-diabetes Other abnormal glucose Bilateral lower extremity edema- Primary Essential (primary) hypertension ([facility]) Unspecified essential hypertension Allergic rhinitis, unspecified OSMANY (obstructive sleep apnea) Obstructive sleep apnea (adult) (pediatric) Primary hypertension ([facility]) Unspecified essential hypertension Morbid obesity ([facility]) Morbid obesity Acute cystitis without hematuria- Primary Tobacco dependence Tobacco use disorder Needs flu shot Need for prophylactic vaccination and inoculation against influenza Morbid obesity ([facility]) Morbid obesity Well woman exam with routine gynecological exam- Primary Routine gynecological examination Morbid obesity ([facility]) Morbid obesity Yeast infection of the skin Candidiasis of skin and nails documented in this encounter [facility]* Diagnosis Left foot pain- Primary Pain in soft tissues of limb Primary hypertension ([facility]) Unspecified essential hypertension Class 3 severe obesity due to excess calories without serious comorbidity with body mass index (BMI) of 45.0 to 49.9 in adult ([facility]) Encounter for annual wellness visit (AWV) in Medicare patient- Primary OSMANY (obstructive sleep apnea) Obstructive sleep apnea (adult) (pediatric) Chronic pain disorder Chronic pain syndrome Gastroesophageal reflux disease, unspecified whether esophagitis present Overactive bladder Hypertonicity of bladder Lower extremity edema Edema Pre-diabetes Other abnormal glucose Morbid obesity ([facility]) Morbid obesity Yeast infection of the skin Candidiasis of skin and nails Tobacco dependence Tobacco use disorder Mood disorder ([facility]) Unspecified episodic mood disorder Primary hypertension ([facility]) Unspecified essential hypertension Left hip pain Pain in joint, pelvic region and thigh Open wound of anterior abdominal wall, initial encounter Primary hypertension ([facility])- Primary Unspecified essential hypertension Yeast infection of the skin Candidiasis of skin and nails Morbid obesity ([facility]) Morbid obesity Primary hypertension ([facility])- Primary Unspecified essential hypertension Encounter for screening mammogram for malignant neoplasm of breast Gastroesophageal reflux disease, unspecified whether esophagitis present Acute gout of right foot, unspecified cause Osteoporosis, unspecified osteoporosis type, unspecified pathological fracture presence ([facility]) Morbid obesity ([facility]) Morbid obesity Pre-diabetes Other abnormal glucose Anemia, unspecified type Vitamin deficiency Unspecified vitamin deficiency Post-viral cough syndrome Primary hypertension ([facility])- Primary Unspecified essential hypertension Allergic rhinitis, unspecified Acute cough Morbid obesity ([facility]) Morbid obesity Former cigarette smoker Personal history of tobacco use, presenting hazards to health Toxic metabolic encephalopathy- Primary Hemiparesis, right ([facility]) Unspecified hemiplegia affecting unspecified side Acute respiratory failure with hypoxia ([facility]) Heart murmur Undiagnosed cardiac murmurs Primary hypertension ([facility]) Unspecified essential hypertension Morbid obesity ([facility]) Morbid obesity Bipolar disorder with severe depression ([facility]) Slurred speech Other speech disturbance Bilateral lower extremity edema- Primary Primary hypertension ([facility]) Unspecified essential hypertension Lower extremity edema Edema Essential (primary) hypertension ([facility]) Unspecified essential hypertension Gastro-esophageal reflux disease without esophagitis Allergic rhinitis, unspecified Bilateral lower extremity edema- Primary Morbid (severe) obesity due to excess calories ([facility]) Body mass index (BMI) 45.0-49.9, adult ([facility]) Pre-diabetes Other abnormal glucose Bilateral lower extremity edema- Primary Essential (primary) hypertension ([facility]) Unspecified essential hypertension Allergic rhinitis, unspecified OSMANY (obstructive sleep apnea) Obstructive sleep apnea (adult) (pediatric) Primary hypertension ([facility]) Unspecified essential hypertension Morbid obesity ([facility]) Morbid obesity Acute cystitis without hematuria- Primary Tobacco dependence Tobacco use disorder Needs flu shot Need for prophylactic vaccination and inoculation against influenza Morbid obesity ([facility]) Morbid obesity Well woman exam with routine gynecological exam- Primary Routine gynecological examination Morbid obesity ([facility]) Morbid obesity Metabolic encephalopathy- Primary OSMANY (obstructive sleep apnea) Obstructive sleep apnea (adult) (pediatric) Restless leg Restless legs syndrome (RLS) 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 ([facility]) Degeneration of intervertebral disc of lumbar region with discogenic back pain and lower extremity pain Memory change Memory loss documented in this encounter [facility]* Diagnosis Left foot pain- Primary Pain in soft tissues of limb Primary hypertension ([facility]) Unspecified essential hypertension Class 3 severe obesity due to excess calories without serious comorbidity with body mass index (BMI) of 45.0 to 49.9 in adult ([facility]) Encounter for annual wellness visit (AWV) in Medicare patient- Primary OSMANY (obstructive sleep apnea) Obstructive sleep apnea (adult) (pediatric) Chronic pain disorder Chronic pain syndrome Gastroesophageal reflux disease, unspecified whether esophagitis present Overactive bladder Hypertonicity of bladder Lower extremity edema Edema Pre-diabetes Other abnormal glucose Morbid obesity (CMS/[facility]) Morbid obesity Yeast infection of the skin Candidiasis of skin and nails Tobacco dependence Tobacco use disorder Mood disorder ([facility]) Unspecified episodic mood disorder Primary hypertension ([facility] [facility]) Unspecified essential hypertension Left hip pain Pain in joint, pelvic region and thigh Open wound of anterior abdominal wall, initial encounter Primary hypertension ([facility]/HCC)- Primary Unspecified essential hypertension Yeast infection of the skin Candidiasis of skin and nails Morbid obesity ([facility]) Morbid obesity Primary hypertension ([facility])- Primary Unspecified essential hypertension Encounter for screening mammogram for malignant neoplasm of breast Gastroesophageal reflux disease, unspecified whether esophagitis present Acute gout of right foot, unspecified cause Osteoporosis, unspecified osteoporosis type, unspecified pathological fracture presence ([facility]) Morbid obesity ([facility]) Morbid obesity Pre-diabetes Other abnormal glucose Anemia, unspecified type Vitamin deficiency Unspecified vitamin deficiency Post-viral cough syndrome Primary hypertension ([facility])- Primary Unspecified essential hypertension Allergic rhinitis, unspecified Acute cough Morbid obesity ([facility]) Morbid obesity Former cigarette smoker Personal history of tobacco use, presenting hazards to health Toxic metabolic encephalopathy- Primary Hemiparesis, right ([facility]) Unspecified hemiplegia affecting unspecified side Acute respiratory failure with hypoxia ([facility]) Heart murmur Undiagnosed cardiac murmurs Primary hypertension ([facility] Unspecified essential hypertension Morbid obesity ([facility]) Morbid obesity Bipolar disorder with severe depression ([facility]) Slurred speech Other speech disturbance Bilateral lower extremity edema- Primary Primary hypertension ([facility]) Unspecified essential hypertension Lower extremity edema Edema Essential (primary) hypertension ([facility]) Unspecified essential hypertension Gastro-esophageal reflux disease without esophagitis Allergic rhinitis, unspecified Bilateral lower extremity edema- Primary Morbid (severe) obesity due to excess calories ([facility]) Body mass index (BMI) 45.0-49.9, adult ([facility]) Pre-diabetes Other abnormal glucose Bilateral lower extremity edema- Primary Essential (primary) hypertension ([facility]) Unspecified essential hypertension Allergic rhinitis, unspecified OSMANY (obstructive sleep apnea) Obstructive sleep apnea (adult) (pediatric) Primary hypertension ([facility]) Unspecified essential hypertension Morbid obesity ([facility]) Morbid obesity Acute cystitis without hematuria- Primary Tobacco dependence Tobacco use disorder Needs flu shot Need for prophylactic vaccination and inoculation against influenza Morbid obesity ([facility]) Morbid obesity Well woman exam with routine gynecological exam- Primary Routine gynecological examination Morbid obesity ([facility]) Morbid obesity Altered mental status, unspecified altered mental status type- Primary Restless leg Restless legs syndrome (RLS) 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[facility]) OSMANY (obstructive sleep apnea) Obstructive sleep apnea (adult) (pediatric) documented in this encounter [facility] HealthcareEvaluation note* Diagnosis Left foot pain- Primary Pain in soft tissues of limb Primary hypertension ([facility]) Unspecified essential hypertension Class 3 severe obesity due to excess calories without serious comorbidity with body mass index (BMI) of 45.0 to 49.9 in adult ([facility]) Encounter for annual wellness visit (AWV) in Medicare patient- Primary OSMANY (obstructive sleep apnea) Obstructive sleep apnea (adult) (pediatric) Chronic pain disorder Chronic pain syndrome Gastroesophageal reflux disease, unspecified whether esophagitis present Overactive bladder Hypertonicity of bladder Lower extremity edema Edema Pre-diabetes Other abnormal glucose Morbid obesity ([facility]) Morbid obesity Yeast infection of the skin Candidiasis of skin and nails Tobacco dependence Tobacco use disorder Mood disorder ([facility]) Unspecified episodic mood disorder Primary hypertension ([facility]) Unspecified essential hypertension Left hip pain Pain in joint, pelvic region and thigh Open wound of anterior abdominal wall, initial encounter Primary hypertension ([facility])- Primary Unspecified essential hypertension Yeast infection of the skin Candidiasis of skin and nails Morbid obesity ([facility]) Morbid obesity Primary hypertension ([facility])- Primary Unspecified essential hypertension Encounter for screening mammogram for malignant neoplasm of breast Gastroesophageal reflux disease, unspecified whether esophagitis present Acute gout of right foot, unspecified cause Osteoporosis, unspecified osteoporosis type, unspecified pathological fracture presence ([facility]) Morbid obesity ([facility]) Morbid obesity Pre-diabetes Other abnormal glucose Anemia, unspecified type Vitamin deficiency Unspecified vitamin deficiency Post-viral cough syndrome Primary hypertension ([facility])- Primary Unspecified essential hypertension Allergic rhinitis, unspecified Acute cough Morbid obesity ([facility]) Morbid obesity Former cigarette smoker Personal history of tobacco use, presenting hazards to health Toxic metabolic encephalopathy- Primary Hemiparesis, right ([facility]) Unspecified hemiplegia affecting unspecified side Acute respiratory failure with hypoxia ([facility] Heart murmur Undiagnosed cardiac murmurs Primary hypertension ([facility]) Unspecified essential hypertension Morbid obesity ([facility] Morbid obesity Bipolar disorder with severe depression ([facility]) Slurred speech Other speech disturbance Bilateral lower extremity edema- Primary Primary hypertension ([facility]) Unspecified essential hypertension Lower extremity edema Edema Essential (primary) hypertension ([facility]) Unspecified essential hypertension Gastro-esophageal reflux disease without esophagitis Allergic rhinitis, unspecified Bilateral lower extremity edema- Primary Morbid (severe) obesity due to excess calories ([facility]) Body mass index (BMI) 45.0-49.9, adult ([facility]) Pre-diabetes Other abnormal glucose Bilateral lower extremity edema- Primary Essential (primary) hypertension ([facility]) Unspecified essential hypertension Allergic rhinitis, unspecified OSMANY (obstructive sleep apnea) Obstructive sleep apnea (adult) (pediatric) Primary hypertension ([facility]) Unspecified essential hypertension Morbid obesity ([facility]) Morbid obesity Acute cystitis without hematuria- Primary Tobacco dependence Tobacco use disorder Needs flu shot Need for prophylactic vaccination and inoculation against influenza Morbid obesity ([facility]) Morbid obesity Well woman exam with routine gynecological exam- Primary Routine gynecological examination Morbid obesity ([facility]) Morbid obesity Altered mental status, unspecified altered mental status type- Primary Memory change Memory loss Concentration deficit 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 ([facility]) PTSD (post-traumatic stress disorder) ([facility]) Posttraumatic stress disorder Bipolar affective disorder, remission status unspecified ([facility]) Family history of dementia Family history of [...] Edema Pre-diabetes Other abnormal glucose Morbid obesity ([facility]/HCC) Morbid obesity Yeast infection of the skin Candidiasis of skin and nails Tobacco dependence Tobacco use disorder Mood disorder ([facility]/HCC) Unspecified episodic mood disorder Primary hypertension ([facility]) Unspecified essential hypertension Left hip pain Pain in joint, pelvic region and thigh Open wound of anterior abdominal wall, initial encounter Primary hypertension ([facility]/HCC)- Primary Unspecified essential hypertension Yeast infection of the skin Candidiasis of skin and nails Morbid obesity ([facility]/HCC) Morbid obesity Primary hypertension ([facility])- Primary Unspecified essential hypertension Allergic rhinitis, unspecified Acute cough Morbid obesity ([facility]) Morbid obesity Former cigarette smoker Personal history of tobacco use, presenting hazards to health Toxic metabolic encephalopathy- Primary Hemiparesis, right ([facility]) Unspecified hemiplegia affecting unspecified side Acute respiratory failure with hypoxia ([facility] Heart murmur Undiagnosed cardiac murmurs Primary hypertension ([facility]) Unspecified essential hypertension Morbid obesity ([facility] Morbid obesity Bipolar disorder with severe depression ([facility]) Slurred speech Other speech disturbance Bilateral lower extremity edema- Primary Primary hypertension ([facility]) Unspecified essential hypertension Lower extremity edema Edema Essential (primary) hypertension ([facility]) Unspecified essential hypertension Gastro-esophageal reflux disease without esophagitis Allergic rhinitis, unspecified Bilateral lower extremity edema- Primary Morbid (severe) obesity due to excess calories ([facility]) Body mass index (BMI) 45.0-49.9, adult ([facility]) Pre-diabetes Other abnormal glucose Bilateral lower extremity edema- Primary Essential (primary) hypertension ([facility]/HCC) Unspecified essential hypertension Allergic rhinitis, unspecified OSMANY (obstructive sleep apnea) Obstructive sleep apnea (adult) (pediatric) Primary hypertension ([facility]/HCC) Unspecified essential hypertension Morbid obesity ([facility]) Morbid obesity Acute cystitis without hematuria- Primary [...] use disorder Bipolar disorder with severe depression ([facility]) At risk for polypharmacy Anxiety Anxiety state, unspecified documented in this encounter [facility] HealthcareEvaluation note* Diagnosis Encounter for annual [...] Tobacco dependence Tobacco use disorder Mood disorder ([facility]) Unspecified episodic mood disorder Primary hypertension ([facility]) Unspecified essential hypertension Left hip pain Pain in joint, pelvic region and thigh Open wound of anterior abdominal wall, initial encounter Primary hypertension ([facility])- Primary Unspecified essential hypertension Yeast infection of the skin Candidiasis of skin and nails Morbid obesity ([facility]) Morbid obesity Primary hypertension ([facility])- Primary Unspecified essential hypertension Allergic rhinitis, unspecified Acute cough Morbid obesity ([facility]) Morbid obesity Former cigarette smoker Personal history of tobacco use, presenting hazards to health Toxic metabolic encephalopathy- Primary Hemiparesis, right ([facility]) Unspecified hemiplegia affecting unspecified side Acute respiratory failure with hypoxia ([facility]) Heart murmur Undiagnosed cardiac murmurs Primary hypertension ([facility]) Unspecified essential hypertension Morbid obesity ([facility]) Morbid obesity Bipolar disorder with severe depression ([facility]) Slurred speech Other speech disturbance Bilateral lower extremity edema- Primary Primary hypertension ([facility]/HCC) Unspecified essential hypertension Lower extremity edema Edema Essential (primary) hypertension ([facility]) Unspecified essential hypertension Gastro-esophageal reflux disease without esophagitis Allergic rhinitis, unspecified Bilateral lower extremity edema- Primary Morbid (severe) obesity due to excess calories ([facility]) Body mass index (BMI) 45.0-49.9, adult ([facility]) Pre-diabetes Other abnormal glucose Bilateral lower extremity edema- Primary Essential (primary) hypertension ([facility]) Unspecified essential hypertension Allergic rhinitis, unspecified OSMANY (obstructive sleep apnea) Obstructive sleep apnea (adult) (pediatric) Primary hypertension ([facility]/HCC) Unspecified essential hypertension Morbid obesity ([facility]) Morbid obesity Acute cystitis without hematuria- Primary Tobacco dependence Tobacco use disorder Needs flu shot Need for prophylactic vaccination and inoculation against influenza Morbid obesity (CMS/HCC) Morbid obesity Well woman exam with routine gynecological exam- Primary Routine gynecological examination Morbid obesity ([facility]/HCC) Morbid obesity Metabolic encephalopathy- Primary OSMANY (obstructive sleep apnea) Obstructive sleep apnea (adult) (pediatric) Morbid obesity (CMS/HCC) Morbid obesity Bilateral lower extremity edema Tobacco dependence Tobacco use disorder Bipolar disorder with severe depression ([facility]) At risk for polypharmacy Anxiety Anxiety state, unspecified Primary hypertension ([facility]) Unspecified essential hypertension Right bundle branch block (RBBB) determined by electrocardiography documented in this encounter [facility]* Diagnosis Yeast infection of the skin- Primary Candidiasis of skin and nails documented in this encounter [facility]* Diagnosis 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[facility])- Primary Restless leg Restless legs syndrome (RLS) Metabolic encephalopathy documented in this encounter [facility]* Diagnosis OSMANY (obstructive sleep apnea)- Primary Obstructive sleep apnea (adult) (pediatric) Restless leg Restless legs syndrome (RLS) documented in this encounter [facility]* Diagnosis Bilateral lower extremity edema- Primary Essential (primary) hypertension ([facility]) Unspecified essential hypertension Allergic rhinitis, unspecified OSMANY (obstructive sleep apnea) Obstructive sleep apnea (adult) (pediatric) Primary hypertension ([facility]/HCC) Unspecified essential hypertension Morbid obesity ([facility]) Morbid obesity documented in this encounter [facility] [...] Tobacco dependence Tobacco use disorder Mood disorder ([facility]/HCC) Unspecified episodic mood disorder Primary hypertension ([facility]) Unspecified essential hypertension Left hip pain Pain in joint, pelvic region and thigh Open wound of anterior abdominal wall, initial encounter Primary hypertension ([facility])- Primary Unspecified essential hypertension Yeast infection of the skin Candidiasis of skin and nails Morbid obesity ([facility]/HCC) Morbid obesity Primary hypertension ([facility]/HCC)- Primary Unspecified essential hypertension Allergic rhinitis, unspecified Acute cough Morbid obesity ([facility]) Morbid obesity Former cigarette smoker Personal history of tobacco use, presenting hazards to health Toxic metabolic encephalopathy- Primary Hemiparesis, right ([facility]) Unspecified hemiplegia affecting unspecified side Acute respiratory failure with hypoxia ([facility]) Heart murmur Undiagnosed cardiac murmurs Primary hypertension ([facility]) Unspecified essential hypertension Morbid obesity ([facility]) Morbid obesity Bipolar disorder with severe depression ([facility]) Slurred speech Other speech disturbance Bilateral lower extremity edema- Primary Primary hypertension ([facility]/HCC) Unspecified essential hypertension Lower extremity edema Edema Essential (primary) hypertension ([facility]) Unspecified essential hypertension Gastro-esophageal reflux disease without esophagitis Allergic rhinitis, unspecified Bilateral lower extremity edema- Primary Morbid (severe) obesity due to excess calories ([facility]) Body mass index (BMI) 45.0-49.9, adult ([facility]) Pre-diabetes Other abnormal glucose Bilateral lower extremity edema- Primary Essential (primary) hypertension ([facility]) Unspecified essential hypertension Allergic rhinitis, unspecified OSMANY (obstructive sleep apnea) Obstructive sleep apnea (adult) (pediatric) Primary hypertension ([facility]) Unspecified essential hypertension Morbid obesity ([facility]) Morbid obesity Acute cystitis without hematuria- Primary Tobacco dependence Tobacco use disorder Needs flu shot Need for prophylactic vaccination and inoculation against influenza Morbid obesity ([facility]/HCC) Morbid obesity Well woman exam with routine gynecological exam- Primary Routine gynecological examination Morbid obesity ([facility]/HCC) Morbid obesity Metabolic encephalopathy- Primary OSMANY (obstructive sleep apnea) Obstructive sleep apnea (adult) (pediatric) Morbid obesity ([facility]) Morbid obesity Bilateral lower extremity edema Tobacco dependence Tobacco use disorder Bipolar disorder with severe depression ([facility]) At risk for polypharmacy Anxiety Anxiety state, unspecified Primary hypertension ([facility]) Unspecified essential hypertension Right bundle branch block (RBBB) determined by electrocardiography Metabolic encephalopathy- Primary Memory change Memory loss Altered mental status, unspecified altered mental status type Concentration deficit PTSD (post-traumatic stress disorder) ([facility]) Posttraumatic stress disorder Bipolar affective disorder, remission status unspecified ([facility]) Family history of dementia Family history of other neurological diseases 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[facility]) OSMANY (obstructive sleep apnea) Obstructive sleep apnea [...] Edema Pre-diabetes Other abnormal glucose Morbid obesity ([facility]/HCC) Morbid obesity Yeast infection of the skin Candidiasis of skin and nails Tobacco dependence Tobacco use disorder Mood disorder ([facility]/HCC) Unspecified episodic mood disorder Primary hypertension ([facility]) Unspecified essential hypertension Left hip pain Pain in joint, pelvic region and thigh Open wound of anterior abdominal wall, initial encounter Primary hypertension ([facility]/HCC)- Primary Unspecified essential hypertension Yeast infection of the skin Candidiasis of skin and nails Morbid obesity ([facility] Morbid obesity Primary hypertension ([facility])- Primary Unspecified essential hypertension Allergic rhinitis, unspecified Acute cough Morbid obesity ([facility]) Morbid obesity Former cigarette smoker Personal history of tobacco use, presenting hazards to health Toxic metabolic encephalopathy- Primary Hemiparesis, right ([facility]) Unspecified hemiplegia affecting unspecified side Acute respiratory failure with hypoxia ([facility]) Heart murmur Undiagnosed cardiac murmurs Primary hypertension ([facility]) Unspecified essential hypertension Morbid obesity ([facility]) Morbid obesity Bipolar disorder with severe depression ([facility]) Slurred speech Other speech disturbance Bilateral lower extremity edema- Primary Primary hypertension ([facility]) Unspecified essential hypertension Lower extremity edema Edema Essential (primary) hypertension ([facility]) Unspecified essential hypertension Gastro-esophageal reflux disease without esophagitis Allergic rhinitis, unspecified Bilateral lower extremity edema- Primary Morbid (severe) obesity due to excess calories ([facility]) Body mass index (BMI) 45.0-49.9, adult ([facility]) Pre-diabetes Other abnormal glucose Bilateral lower extremity edema- Primary Essential (primary) hypertension ([facility]) Unspecified essential hypertension Allergic rhinitis, unspecified OSMANY (obstructive sleep apnea) Obstructive sleep apnea (adult) (pediatric) Primary hypertension ([facility]) Unspecified essential hypertension Morbid obesity ([facility]) Morbid obesity Acute cystitis without hematuria- Primary [...] legs syndrome (RLS) documented in this encounter [facility] HealthcareEvaluation note* Diagnosis Encounter for annual [...] health Toxic metabolic encephalopathy- Primary Hemiparesis, right (CMS/[facility]) Unspecified hemiplegia affecting unspecified side Acute respiratory failure with hypoxia ([facility]) Heart murmur Undiagnosed cardiac murmurs Primary hypertension ([facility]/HCC) Unspecified essential hypertension Morbid obesity ([facility]/HCC) Morbid obesity Bipolar disorder with severe depression (CMS/HCC) Slurred speech Other speech disturbance Bilateral lower extremity edema- Primary Primary hypertension (CMS/HCC) Unspecified essential hypertension Lower extremity edema Edema Essential (primary) hypertension (CMS/HCC) Unspecified essential hypertension Gastro-esophageal reflux disease without esophagitis Allergic rhinitis, unspecified Bilateral lower extremity edema- Primary Morbid (severe) obesity due to excess calories ([facility]) Body mass index (BMI) 45.0-49.9, adult ([facility]) Pre-diabetes Other abnormal glucose Bilateral lower extremity edema- Primary Essential (primary) hypertension (CMS/HCC) Unspecified essential hypertension Allergic rhinitis, unspecified OSMANY (obstructive sleep apnea) Obstructive sleep apnea (adult) (pediatric) Primary hypertension ([facility]) Unspecified essential hypertension Morbid obesity ([facility]) Morbid obesity Acute cystitis without hematuria- Primary Tobacco dependence Tobacco use disorder Needs flu shot Need for prophylactic vaccination and inoculation against influenza Morbid obesity ([facility]/HCC) Morbid obesity Well woman exam with routine gynecological exam- Primary Routine gynecological examination Morbid obesity ([facility]/HCC) Morbid obesity Metabolic encephalopathy- Primary OSMANY (obstructive sleep apnea) Obstructive sleep apnea (adult) (pediatric) Morbid obesity ([facility]/HCC) Morbid obesity Bilateral lower extremity edema Tobacco dependence Tobacco use disorder Bipolar disorder with severe depression ([facility]) At risk for polypharmacy Anxiety Anxiety state, unspecified Primary hypertension ([facility]) Unspecified essential hypertension Right bundle branch block (RBBB) determined by electrocardiography Primary hypertension ([facility])- Primary Unspecified essential hypertension Chronic kidney disease, stage 3a ([facility]) ([facility]) Morbid (severe) obesity due to excess calories ([facility]) Body mass index (BMI) 45.0-49.9, adult ([facility]) OSMANY (obstructive sleep apnea) Obstructive sleep apnea (adult) (pediatric) Hemiparesis, right ([facility]) Unspecified hemiplegia affecting unspecified side Gastroesophageal reflux disease, unspecified whether esophagitis present Metabolic encephalopathy Essential (primary) hypertension ([facility]) Unspecified essential hypertension Allergic rhinitis, unspecified Gastro-esophageal reflux disease without esophagitis Bilateral lower extremity edema documented in this encounter [facility] HealthcareEvaluation note* Diagnosis Encounter for annual wellness visit (AWV) in Medicare patient- Primary OSMANY (obstructive sleep apnea) Obstructive sleep apnea (adult) (pediatric) Chronic pain disorder Chronic pain syndrome Gastroesophageal reflux disease, unspecified whether esophagitis present Overactive bladder Hypertonicity of bladder Lower extremity edema Edema Pre-diabetes Other abnormal glucose Morbid obesity ([facility]/HCC) Morbid obesity Yeast infection of the skin Candidiasis of skin and nails Tobacco dependence Tobacco use disorder Mood disorder ([facility]/HCC) Unspecified episodic mood disorder Primary hypertension ([facility]) Unspecified essential hypertension Left hip pain Pain in joint, pelvic region and thigh Open wound of anterior abdominal wall, initial encounter Primary hypertension ([facility]/HCC)- Primary Unspecified essential hypertension Yeast infection of the skin Candidiasis of skin and nails Morbid obesity ([facility]/HCC) Morbid obesity Primary hypertension ([facility])- Primary Unspecified essential hypertension Allergic rhinitis, unspecified Acute cough Morbid obesity ([facility]) Morbid obesity Former cigarette smoker Personal history of tobacco use, presenting hazards to health Toxic metabolic encephalopathy- Primary Hemiparesis, right ([facility]) Unspecified hemiplegia affecting unspecified side Acute respiratory failure with hypoxia ([facility]) Heart murmur Undiagnosed cardiac murmurs Primary hypertension ([facility]) Unspecified essential hypertension Morbid obesity ([facility] Morbid obesity Bipolar disorder with severe depression ([facility]) Slurred speech Other speech disturbance Bilateral lower extremity edema- Primary Primary hypertension ([facility]) Unspecified essential hypertension Lower extremity edema Edema Essential (primary) hypertension ([facility]) Unspecified essential hypertension Gastro-esophageal reflux disease without esophagitis Allergic rhinitis, unspecified Bilateral lower extremity edema- Primary Morbid (severe) obesity due to excess calories ([facility]) Body mass index (BMI) 45.0-49.9, adult ([facility]) Pre-diabetes Other abnormal glucose Bilateral lower extremity edema- Primary Essential (primary) hypertension ([facility]) Unspecified essential hypertension Allergic rhinitis, unspecified OSMANY (obstructive sleep apnea) Obstructive sleep apnea (adult) (pediatric) Primary hypertension ([facility]) Unspecified essential hypertension Morbid obesity ([facility]) Morbid obesity Acute cystitis without hematuria- Primary Tobacco dependence Tobacco use disorder Needs flu shot Need for prophylactic vaccination and inoculation against influenza Morbid obesity ([facility]) Morbid obesity Well woman exam with routine gynecological exam- Primary Routine gynecological examination Morbid obesity ([facility]) Morbid obesity Metabolic encephalopathy- Primary OSMANY (obstructive sleep apnea) Obstructive sleep apnea (adult) (pediatric) Morbid obesity ([facility]) Morbid obesity Bilateral lower extremity edema Tobacco dependence Tobacco use disorder Bipolar disorder with severe depression ([facility]) At risk for polypharmacy Anxiety Anxiety state, unspecified Primary hypertension ([facility]) Unspecified essential hypertension Right bundle branch block (RBBB) determined by electrocardiography Primary hypertension ([facility])- Primary Unspecified essential hypertension Chronic kidney disease, stage 3a (HCC) ([facility]) Morbid (severe) obesity due to excess calories ([facility]) Body mass index (BMI) 45.0-49.9, adult ([facility]) OSMANY (obstructive sleep apnea) Obstructive sleep apnea (adult) (pediatric) Hemiparesis, right ([facility]) Unspecified hemiplegia affecting unspecified side Gastroesophageal reflux disease, unspecified whether esophagitis present Metabolic encephalopathy Essential (primary) hypertension (CMS/HCC) Unspecified essential hypertension Allergic rhinitis, unspecified Gastro-esophageal reflux disease without esophagitis Bilateral lower extremity edema 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 (CMS/[facility])- Primary OSMANY (obstructive sleep apnea) Obstructive sleep apnea (adult) (pediatric) Metabolic encephalopathy Restless leg Restless legs syndrome (RLS) Degeneration of intervertebral disc of lumbar region with discogenic back pain and lower extremity pain documented in this encounter [facility] HealthcareEvaluation note* Diagnosis Encounter for annual [...] health Toxic metabolic encephalopathy- Primary Hemiparesis, right (CMS/[facility]) Unspecified hemiplegia affecting unspecified side Acute respiratory failure with hypoxia (CMS/[facility]) Heart murmur Undiagnosed cardiac murmurs Primary hypertension [...] Morbid (severe) obesity due to excess calories (CMS/[facility]) Body mass index (BMI) 45.0-49.9, adult (CMS/[facility]) Pre-diabetes Other abnormal glucose Bilateral lower extremity edema- Primary Essential (primary) hypertension (CMS/HCC) Unspecified essential hypertension Allergic rhinitis, unspecified OSMANY (obstructive sleep apnea) Obstructive sleep apnea (adult) (pediatric) Primary hypertension ([facility]/HCC) Unspecified essential hypertension Morbid obesity ([facility]) Morbid obesity Acute cystitis without hematuria- Primary Tobacco dependence Tobacco use disorder Needs flu shot Need for prophylactic vaccination and inoculation against influenza Morbid obesity (CMS/HCC) Morbid obesity Well woman exam with routine gynecological exam- Primary Routine gynecological examination Morbid obesity ([facility]/HCC) Morbid obesity Metabolic encephalopathy- Primary OSMANY (obstructive sleep apnea) Obstructive sleep apnea (adult) (pediatric) Morbid obesity ([facility]/HCC) Morbid obesity Bilateral lower extremity edema Tobacco dependence Tobacco use disorder Bipolar disorder with severe depression ([facility]) At risk for polypharmacy Anxiety Anxiety state, unspecified Primary hypertension ([facility]) Unspecified essential hypertension Right bundle branch block (RBBB) determined by electrocardiography Primary hypertension ([facility]/HCC)- Primary Unspecified essential hypertension Chronic kidney disease, stage 3a ([facility]) ([facility]) Morbid (severe) obesity due to excess calories ([facility]) Body mass index (BMI) 45.0-49.9, adult ([facility]) OSMANY (obstructive sleep apnea) Obstructive sleep apnea (adult) (pediatric) Hemiparesis, right ([facility]) Unspecified hemiplegia affecting unspecified side Gastroesophageal reflux disease, unspecified whether esophagitis present Metabolic encephalopathy Essential (primary) hypertension ([facility]) Unspecified essential hypertension Allergic rhinitis, unspecified Gastro-esophageal reflux disease without esophagitis Bilateral lower extremity edema Restless leg Restless legs syndrome (RLS) documented in this encounter [facility] HealthcareEvaluation note* Diagnosis Encounter for annual wellness visit (AWV) in Medicare patient- Primary OSMANY (obstructive sleep apnea) Obstructive sleep apnea (adult) (pediatric) Chronic pain disorder Chronic pain syndrome Gastroesophageal reflux disease, unspecified whether esophagitis present Overactive bladder Hypertonicity of bladder Lower extremity edema Edema Pre-diabetes Other abnormal glucose Morbid obesity ([facility]/HCC) Morbid obesity Yeast infection of the skin Candidiasis of skin and nails Tobacco dependence Tobacco use disorder Mood disorder ([facility]/HCC) Unspecified episodic mood disorder Primary hypertension ([facility]) Unspecified essential hypertension Left hip pain Pain in joint, pelvic region and thigh Open wound of anterior abdominal wall, initial encounter Primary hypertension ([facility])- Primary Unspecified essential hypertension Yeast infection of the skin Candidiasis of skin and nails Morbid obesity ([facility]/HCC) Morbid obesity Primary hypertension ([facility]/HCC)- Primary Unspecified essential hypertension Allergic rhinitis, unspecified Acute cough Morbid obesity ([facility]/HCC) Morbid obesity Former cigarette smoker Personal history of tobacco use, presenting hazards to health Toxic metabolic encephalopathy- Primary Hemiparesis, right ([facility]) Unspecified hemiplegia affecting unspecified side Acute respiratory failure with hypoxia ([facility]) Heart murmur Undiagnosed cardiac murmurs Primary hypertension ([facility]) Unspecified essential hypertension Morbid obesity ([facility]) Morbid obesity Bipolar disorder with severe depression ([facility]) Slurred speech Other speech disturbance Bilateral lower extremity edema- Primary Primary hypertension ([facility]/HCC) Unspecified essential hypertension Lower extremity edema Edema Essential (primary) hypertension ([facility]) Unspecified essential hypertension Gastro-esophageal reflux disease without esophagitis Allergic rhinitis, unspecified Bilateral lower extremity edema- Primary Morbid (severe) obesity due to excess calories ([facility]) Body mass index (BMI) 45.0-49.9, adult ([facility]) Pre-diabetes Other abnormal glucose Bilateral lower extremity edema- Primary Essential (primary) hypertension ([facility]) Unspecified essential hypertension Allergic rhinitis, unspecified OSMANY (obstructive sleep apnea) Obstructive sleep apnea (adult) (pediatric) Primary hypertension ([facility]) Unspecified essential hypertension Morbid obesity ([facility]) Morbid obesity Acute cystitis without hematuria- Primary Tobacco dependence Tobacco use disorder Needs flu shot Need for prophylactic vaccination and inoculation against influenza Morbid obesity ([facility]/HCC) Morbid obesity Well woman exam with routine gynecological exam- Primary Routine gynecological examination Morbid obesity ([facility]) Morbid obesity Metabolic encephalopathy- Primary OSMANY (obstructive sleep apnea) Obstructive sleep apnea (adult) (pediatric) Morbid obesity ([facility]) Morbid obesity Bilateral lower extremity edema Tobacco dependence Tobacco use disorder Bipolar disorder with severe depression ([facility]) At risk for polypharmacy Anxiety Anxiety state, unspecified Primary hypertension ([facility]) Unspecified essential hypertension Right bundle branch block (RBBB) determined by electrocardiography Primary hypertension ([facility])- Primary Unspecified essential hypertension Chronic kidney disease, stage 3a (HCC) ([facility]) Morbid (severe) obesity due to excess calories ([facility]) Body mass index (BMI) 45.0-49.9, adult ([facility]) OSMANY (obstructive sleep apnea) Obstructive sleep apnea (adult) (pediatric) Hemiparesis, right ([facility]/HCC) Unspecified hemiplegia affecting unspecified side Gastroesophageal reflux disease, unspecified whether esophagitis present Metabolic encephalopathy Essential (primary) hypertension ([facility]/HCC) Unspecified essential hypertension Allergic rhinitis, unspecified Gastro-esophageal reflux disease without esophagitis Bilateral lower extremity edema URI, acute- Primary Acute upper respiratory infections of unspecified site documented in this encounter [facility] HealthcareEvaluation note* Diagnosis Encounter for annual [...] Tobacco dependence Tobacco use disorder Mood disorder ([facility]) Unspecified episodic mood disorder Primary hypertension ([facility]) Unspecified essential hypertension Left hip pain Pain in joint, pelvic region and thigh Open wound of anterior abdominal wall, initial encounter Primary hypertension ([facility])- Primary Unspecified essential hypertension Yeast infection of the skin Candidiasis of skin and nails Morbid obesity ([facility] Morbid obesity Primary hypertension ([facility])- Primary Unspecified essential hypertension Allergic rhinitis, unspecified Acute cough Morbid obesity ([facility]) Morbid obesity Former cigarette smoker Personal history of tobacco use, presenting hazards to health Toxic metabolic encephalopathy- Primary Hemiparesis, right ([facility]) Unspecified hemiplegia affecting unspecified side Acute respiratory failure with hypoxia ([facility]) Heart murmur Undiagnosed cardiac murmurs Primary hypertension ([facility]) Unspecified essential hypertension Morbid obesity ([facility]) Morbid obesity Bipolar disorder with severe depression ([facility]) Slurred speech Other speech disturbance Bilateral lower extremity edema- Primary Primary hypertension ([facility]/HCC) Unspecified essential hypertension Lower extremity edema Edema Essential (primary) hypertension ([facility]) Unspecified essential hypertension Gastro-esophageal reflux disease without esophagitis Allergic rhinitis, unspecified Bilateral lower extremity edema- Primary Morbid (severe) obesity due to excess calories ([facility]) Body mass index (BMI) 45.0-49.9, adult ([facility]) Pre-diabetes Other abnormal glucose Bilateral lower extremity edema- Primary Essential (primary) hypertension ([facility]/HCC) Unspecified essential hypertension Allergic rhinitis, unspecified OSMANY (obstructive sleep apnea) Obstructive sleep apnea (adult) (pediatric) Primary hypertension ([facility]/HCC) Unspecified essential hypertension Morbid obesity ([facility]) Morbid obesity Acute cystitis without hematuria- Primary Tobacco dependence Tobacco use disorder Needs flu shot Need for prophylactic vaccination and inoculation against influenza Morbid obesity ([facility]/HCC) Morbid obesity Well woman exam with routine gynecological exam- Primary Routine gynecological examination Morbid obesity ([facility]/HCC) Morbid obesity Metabolic encephalopathy- Primary OSMANY (obstructive sleep apnea) Obstructive sleep apnea (adult) (pediatric) Morbid obesity ([facility]/HCC) Morbid obesity Bilateral lower extremity edema Tobacco dependence Tobacco use disorder Bipolar disorder with severe depression ([facility]) At risk for polypharmacy Anxiety Anxiety state, unspecified Primary hypertension ([facility]) Unspecified essential hypertension Right bundle branch block (RBBB) determined by electrocardiography Primary hypertension ([facility])- Primary Unspecified essential hypertension Chronic kidney disease, stage 3a (HCC) ([facility]) Morbid (severe) obesity due to excess calories ([facility]) Body mass index (BMI) 45.0-49.9, adult ([facility]) OSMANY (obstructive sleep apnea) Obstructive sleep apnea (adult) (pediatric) Hemiparesis, right ([facility]) Unspecified hemiplegia affecting unspecified side Gastroesophageal reflux disease, unspecified whether esophagitis present Metabolic encephalopathy Essential (primary) hypertension ([facility]) Unspecified essential hypertension Allergic rhinitis, unspecified Gastro-esophageal reflux disease without esophagitis Bilateral lower extremity edema OSMANY (obstructive sleep apnea)- Primary Obstructive sleep apnea (adult) (pediatric) Restless leg Restless legs syndrome (RLS) 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[facility]) Concentration deficit documented in this encounter [facility]* Diagnosis Encounter for annual wellness visit (AWV) in Medicare patient- Primary OSMANY (obstructive sleep apnea) Obstructive sleep apnea (adult) (pediatric) Chronic pain disorder Chronic pain syndrome Gastroesophageal reflux disease, unspecified whether esophagitis present Overactive bladder Hypertonicity of bladder Lower extremity edema Edema Pre-diabetes Other abnormal glucose Morbid obesity ([facility]/HCC) Morbid obesity Yeast infection of the skin Candidiasis of skin and nails Tobacco dependence Tobacco use disorder Mood disorder ([facility]/HCC) Unspecified episodic mood disorder Primary hypertension ([facility]) Unspecified essential hypertension Left hip pain Pain in joint, pelvic region and thigh Open wound of anterior abdominal wall, initial encounter Primary hypertension ([facility]/HCC)- Primary Unspecified essential hypertension Yeast infection of the skin Candidiasis of skin and nails Morbid obesity ([facility]/HCC) Morbid obesity Primary hypertension ([facility]/HCC)- Primary Unspecified essential hypertension Allergic rhinitis, unspecified Acute cough Morbid obesity ([facility]/HCC) Morbid obesity Former cigarette smoker Personal history of tobacco use, presenting hazards to health Toxic metabolic encephalopathy- Primary Hemiparesis, right ([facility]) Unspecified hemiplegia affecting unspecified side Acute respiratory failure with hypoxia ([facility]) Heart murmur Undiagnosed cardiac murmurs Primary hypertension ([facility]) Unspecified essential hypertension Morbid obesity ([facility]) Morbid obesity Bipolar disorder with severe depression ([facility]) Slurred speech Other speech disturbance Bilateral lower extremity edema- Primary Primary hypertension ([facility]/HCC) Unspecified essential hypertension Lower extremity edema Edema Essential (primary) hypertension ([facility]) Unspecified essential hypertension Gastro-esophageal reflux disease without esophagitis Allergic rhinitis, unspecified Bilateral lower extremity edema- Primary Morbid (severe) obesity due to excess calories ([facility]) Body mass index (BMI) 45.0-49.9, adult ([facility]) Pre-diabetes Other abnormal glucose Bilateral lower extremity edema- Primary Essential (primary) hypertension ([facility]) Unspecified essential hypertension Allergic rhinitis, unspecified OSMANY (obstructive sleep apnea) Obstructive sleep apnea (adult) (pediatric) Primary hypertension ([facility]) Unspecified essential hypertension Morbid obesity ([facility]) Morbid obesity Acute cystitis without hematuria- Primary Tobacco dependence Tobacco use disorder Needs flu shot Need for prophylactic vaccination and inoculation against influenza Morbid obesity ([facility]/HCC) Morbid obesity Well woman exam with routine gynecological exam- Primary Routine gynecological examination Morbid obesity ([facility]) Morbid obesity Metabolic encephalopathy- Primary OSMANY (obstructive sleep apnea) Obstructive sleep apnea (adult) (pediatric) Morbid obesity ([facility]) Morbid obesity Bilateral lower extremity edema Tobacco dependence Tobacco use disorder Bipolar disorder with severe depression ([facility]) At risk for polypharmacy Anxiety Anxiety state, unspecified Primary hypertension ([facility]) Unspecified essential hypertension Right bundle branch block (RBBB) determined by electrocardiography Primary hypertension ([facility])- Primary Unspecified essential hypertension Chronic kidney disease, stage 3a (HCC) ([facility]) Morbid (severe) obesity due to excess calories ([facility]) Body mass index (BMI) 45.0-49.9, adult ([facility]) OSMANY (obstructive sleep apnea) Obstructive sleep apnea (adult) (pediatric) Hemiparesis, right ([facility]) Unspecified hemiplegia affecting unspecified side Gastroesophageal reflux disease, unspecified whether esophagitis present Metabolic encephalopathy Essential (primary) hypertension (CMS/HCC) Unspecified essential hypertension Allergic rhinitis, unspecified Gastro-esophageal reflux disease without esophagitis Bilateral lower extremity edema Primary hypertension ([facility]/HCC)- Primary Unspecified essential hypertension Morbid (severe) obesity due to excess calories ([facility]/HCC) Essential (primary) hypertension ([facility]/HCC) Unspecified essential hypertension Allergic rhinitis, unspecified Gastro-esophageal reflux disease without esophagitis Bilateral lower extremity edema Bronchitis Bronchitis, not specified as acute or chronic documented in this encounter [facility] HealthcareEvaluation note* Diagnosis Encounter for annual wellness visit (AWV) in Medicare patient- Primary OSMANY (obstructive sleep apnea) Obstructive sleep apnea (adult) (pediatric) Chronic pain disorder Chronic pain syndrome Gastroesophageal reflux disease, unspecified whether esophagitis present Overactive bladder Hypertonicity of bladder Lower extremity edema Edema Pre-diabetes Other abnormal glucose Morbid obesity ([facility]) Morbid obesity Yeast infection of the skin Candidiasis of skin and nails Tobacco dependence Tobacco use disorder Mood disorder ([facility]) Unspecified episodic mood disorder Primary hypertension ([facility]) Unspecified essential hypertension Left hip pain Pain in joint, pelvic region and thigh Open wound of anterior abdominal wall, initial encounter Primary hypertension ([facility]/HCC)- Primary Unspecified essential hypertension Yeast infection of the skin Candidiasis of skin and nails Morbid obesity ([facility] Morbid obesity Primary hypertension ([facility])- Primary Unspecified essential hypertension Allergic rhinitis, unspecified Acute cough Morbid obesity ([facility]) Morbid obesity Former cigarette smoker Personal history of tobacco use, presenting hazards to health Toxic metabolic encephalopathy- Primary Hemiparesis, right ([facility]) Unspecified hemiplegia affecting unspecified side Acute respiratory failure with hypoxia ([facility]) Heart murmur Undiagnosed cardiac murmurs Primary hypertension ([facility]/HCC) Unspecified essential hypertension Morbid obesity ([facility]/HCC) Morbid obesity Bipolar disorder with severe depression ([facility]) Slurred speech Other speech disturbance Bilateral lower extremity edema- Primary Primary hypertension (CMS/HCC) Unspecified essential hypertension Lower extremity edema Edema Essential (primary) hypertension ([facility]) Unspecified essential hypertension Gastro-esophageal reflux disease without esophagitis Allergic rhinitis, unspecified Bilateral lower extremity edema- Primary Morbid (severe) obesity due to excess calories ([facility]) Body mass index (BMI) 45.0-49.9, adult ([facility]) Pre-diabetes Other abnormal glucose Bilateral lower extremity edema- Primary Essential (primary) hypertension ([facility]) Unspecified essential hypertension Allergic rhinitis, unspecified OSMANY (obstructive sleep apnea) Obstructive sleep apnea (adult) (pediatric) Primary hypertension ([facility]) Unspecified essential hypertension Morbid obesity ([facility]) Morbid obesity Well woman exam with routine gynecological exam- Primary Routine gynecological examination Morbid obesity ([facility]/HCC) Morbid obesity Metabolic encephalopathy- Primary OSMANY (obstructive sleep apnea) Obstructive sleep apnea (adult) (pediatric) Morbid obesity ([facility]/HCC) Morbid obesity Bilateral lower extremity edema Tobacco dependence Tobacco use disorder Bipolar disorder with severe depression ([facility]) At risk for polypharmacy Anxiety Anxiety state, unspecified Primary hypertension ([facility]) Unspecified essential hypertension Right bundle branch block (RBBB) determined by electrocardiography Primary hypertension ([facility])- Primary Unspecified essential hypertension Chronic kidney disease, stage 3a (HCC) ([facility]) Morbid (severe) obesity due to excess calories ([facility]) Body mass index (BMI) 45.0-49.9, adult ([facility]) OSMANY (obstructive sleep apnea) Obstructive sleep apnea (adult) (pediatric) Hemiparesis, right ([facility]) Unspecified hemiplegia affecting unspecified side Gastroesophageal reflux disease, unspecified whether esophagitis present Metabolic encephalopathy Essential (primary) hypertension ([facility]) Unspecified essential hypertension Allergic rhinitis, unspecified Gastro-esophageal reflux disease without esophagitis Bilateral lower extremity edema Primary hypertension ([facility])- Primary Unspecified essential hypertension Morbid (severe) obesity due to excess calories ([facility]) Essential (primary) hypertension ([facility]) Unspecified essential hypertension Allergic rhinitis, unspecified Gastro-esophageal reflux disease without esophagitis Bilateral lower extremity edema Bronchitis Bronchitis, not specified as acute or chronic Primary hypertension ([facility])- Primary Unspecified essential hypertension Bronchitis Bronchitis, not specified as acute or chronic Bilateral lower extremity edema Morbid (severe) obesity due to excess calories ([facility]) Pre-diabetes Other abnormal glucose Allergic rhinitis, unspecified seasonality, unspecified trigger Encounter for screening mammogram for malignant neoplasm of breast Former cigarette smoker Personal history of tobacco use, presenting hazards to health documented in this encounter [facility]* Diagnosis Encounter for annual wellness visit (AWV) in Medicare patient- Primary OSMANY (obstructive sleep apnea) Obstructive sleep apnea (adult) (pediatric) Chronic pain disorder Chronic pain syndrome Gastroesophageal reflux disease, unspecified whether esophagitis present Overactive bladder Hypertonicity of bladder Lower extremity edema Edema Pre-diabetes Other abnormal glucose Morbid obesity ([facility]) Morbid obesity Yeast infection of the skin [...] Candidiasis of skin and nails Morbid obesity ([facility]) Morbid obesity Primary hypertension- Primary Unspecified essential hypertension Allergic rhinitis, unspecified Acute cough Morbid obesity ([facility]) Morbid obesity Former cigarette smoker Personal history of tobacco use, presenting hazards to health Toxic metabolic encephalopathy- Primary Hemiparesis, right ([facility]) Unspecified hemiplegia affecting unspecified side Acute respiratory failure with hypoxia ([facility]) Heart murmur Undiagnosed cardiac murmurs Primary hypertension Unspecified essential hypertension Morbid obesity ([facility]) Morbid obesity Bipolar disorder with severe depression ([facility]) Slurred speech Other speech disturbance Bilateral lower extremity edema- Primary Primary hypertension Unspecified essential hypertension Lower extremity edema Edema Essential (primary) hypertension Unspecified essential hypertension Gastro-esophageal reflux disease without esophagitis Allergic rhinitis, unspecified Bilateral lower extremity edema- Primary Morbid (severe) obesity due to excess calories ([facility]) Body mass index (BMI) 45.0-49.9, adult ([facility]) Pre-diabetes Other abnormal glucose Bilateral lower extremity edema- Primary Essential (primary) hypertension Unspecified essential hypertension Allergic rhinitis, unspecified OSMANY (obstructive sleep apnea) Obstructive sleep apnea (adult) (pediatric) Primary hypertension Unspecified essential hypertension Morbid obesity ([facility]) Morbid obesity Well woman exam with routine gynecological exam- Primary Routine gynecological examination Morbid obesity ([facility]) Morbid obesity Metabolic encephalopathy- Primary OSMANY (obstructive sleep apnea) Obstructive sleep apnea (adult) (pediatric) Morbid obesity ([facility]) Morbid obesity Bilateral lower extremity edema Tobacco dependence Tobacco use disorder Bipolar disorder with severe depression ([facility]) At risk for polypharmacy Anxiety Anxiety state, unspecified Primary hypertension Unspecified essential hypertension Right bundle branch block (RBBB) determined by electrocardiography Primary hypertension- Primary Unspecified essential hypertension Chronic kidney disease, stage 3a ([facility]) Morbid (severe) obesity due to excess calories ([facility]) Body mass index (BMI) 45.0-49.9, adult ([facility]) OSMANY (obstructive sleep apnea) Obstructive sleep apnea (adult) (pediatric) Hemiparesis, right (HCC) Unspecified hemiplegia affecting unspecified side Gastroesophageal reflux disease, unspecified whether esophagitis present Metabolic encephalopathy Essential (primary) hypertension Unspecified essential hypertension Allergic rhinitis, unspecified Gastro-esophageal reflux disease without esophagitis Bilateral lower extremity edema Primary hypertension- Primary Unspecified essential hypertension Morbid (severe) obesity due to excess calories ([facility]) Essential (primary) hypertension Unspecified essential hypertension Allergic rhinitis, unspecified Gastro-esophageal reflux disease without esophagitis Bilateral lower extremity edema Bronchitis Bronchitis, not specified as acute or chronic Primary hypertension- Primary Unspecified essential hypertension Bronchitis Bronchitis, not specified as acute or chronic Bilateral lower extremity edema Morbid (severe) obesity due to excess calories ([facility]) Pre-diabetes Other abnormal glucose Allergic rhinitis, unspecified [...] Edema Pre-diabetes Other abnormal glucose Morbid obesity ([facility]) Morbid obesity Yeast infection of the skin [...] Candidiasis of skin and nails Morbid obesity ([facility]) Morbid obesity Primary hypertension- Primary Unspecified essential hypertension Allergic rhinitis, unspecified Acute cough Morbid obesity ([facility]) Morbid obesity Former cigarette smoker Personal history of tobacco use, presenting hazards to health Toxic metabolic encephalopathy- Primary Hemiparesis, right (HCC) Unspecified hemiplegia affecting unspecified side Acute respiratory failure with hypoxia (HCC) Heart murmur Undiagnosed cardiac murmurs Primary hypertension Unspecified essential hypertension Morbid obesity ([facility]) Morbid obesity Bipolar disorder with severe depression (HCC) Slurred speech Other speech disturbance Bilateral lower extremity edema- Primary Primary hypertension Unspecified essential hypertension Lower extremity edema Edema Essential (primary) hypertension Unspecified essential hypertension Gastro-esophageal reflux disease without esophagitis Allergic rhinitis, unspecified Bilateral lower extremity edema- Primary Morbid (severe) obesity due to excess calories ([facility]) Body mass index (BMI) 45.0-49.9, adult ([facility]) Pre-diabetes Other abnormal glucose Bilateral lower extremity edema- Primary Essential (primary) hypertension Unspecified essential hypertension Allergic rhinitis, unspecified OSMANY (obstructive sleep apnea) Obstructive sleep apnea (adult) (pediatric) Primary hypertension Unspecified essential hypertension Morbid obesity ([facility]) Morbid obesity Well woman exam with routine gynecological exam- Primary Routine gynecological examination Morbid obesity ([facility]) Morbid obesity Metabolic encephalopathy- Primary OSMANY (obstructive sleep apnea) Obstructive sleep apnea (adult) (pediatric) Morbid obesity ([facility]) Morbid obesity Bilateral lower extremity edema Tobacco dependence Tobacco use disorder Bipolar disorder with severe depression ([facility]) At risk for polypharmacy Anxiety Anxiety state, unspecified Primary hypertension Unspecified essential hypertension Right bundle branch block (RBBB) determined by electrocardiography Primary hypertension- Primary Unspecified essential hypertension Chronic kidney disease, stage 3a ([facility]) Morbid (severe) obesity due to excess calories ([facility]) Body mass index (BMI) 45.0-49.9, adult ([facility]) OSMANY (obstructive sleep apnea) Obstructive sleep apnea (adult) (pediatric) Hemiparesis, right ([facility]) Unspecified hemiplegia affecting unspecified side Gastroesophageal reflux disease, unspecified whether esophagitis present Metabolic encephalopathy Essential (primary) hypertension Unspecified essential hypertension Allergic rhinitis, unspecified Gastro-esophageal reflux disease without esophagitis Bilateral lower extremity edema Primary hypertension- Primary Unspecified essential hypertension Morbid (severe) obesity due to excess calories ([facility]) Essential (primary) hypertension Unspecified essential hypertension Allergic rhinitis, unspecified Gastro-esophageal reflux disease without esophagitis Bilateral lower extremity edema Bronchitis Bronchitis, not specified as acute or chronic Primary hypertension- Primary Unspecified essential hypertension Bronchitis Bronchitis, not specified as acute or chronic Bilateral lower extremity edema Morbid (severe) obesity due to excess calories ([facility]) Pre-diabetes Other abnormal glucose Allergic rhinitis, unspecified [...] Primary osteoarthritis of right knee Morbid obesity ([facility]) Morbid obesity documented in this encounter [facility] HealthcareEvaluation note* Diagnosis Encounter for annual wellness visit (AWV) in Medicare patient- Primary OSMANY (obstructive sleep apnea) Obstructive sleep apnea (adult) (pediatric) Chronic pain disorder Chronic pain syndrome Gastroesophageal reflux disease, unspecified whether esophagitis present Overactive bladder Hypertonicity of bladder Lower extremity edema Edema Pre-diabetes Other abnormal glucose Morbid obesity ([facility]) Morbid obesity Yeast infection of the skin [...] Candidiasis of skin and nails Morbid obesity ([facility]) Morbid obesity Primary hypertension- Primary Unspecified essential hypertension Allergic rhinitis, unspecified Acute cough Morbid obesity ([facility]) Morbid obesity Former cigarette smoker Personal history of tobacco use, presenting hazards to health Toxic metabolic encephalopathy- Primary Hemiparesis, right (HCC) Unspecified hemiplegia affecting unspecified side Acute respiratory failure with hypoxia ([facility]) Heart murmur Undiagnosed cardiac murmurs Primary hypertension Unspecified essential hypertension Morbid obesity ([facility]) Morbid obesity Bipolar disorder with severe depression ([facility]) Slurred speech Other speech disturbance Bilateral lower extremity edema- Primary Primary hypertension Unspecified essential hypertension Lower extremity edema Edema Essential (primary) hypertension Unspecified essential hypertension Gastro-esophageal reflux disease without esophagitis Allergic rhinitis, unspecified Bilateral lower extremity edema- Primary Morbid (severe) obesity due to excess calories ([facility]) Body mass index (BMI) 45.0-49.9, adult ([facility]) Pre-diabetes Other abnormal glucose Bilateral lower extremity edema- Primary Essential (primary) hypertension Unspecified essential hypertension Allergic rhinitis, unspecified OSMANY (obstructive sleep apnea) Obstructive sleep apnea (adult) (pediatric) Primary hypertension Unspecified essential hypertension Morbid obesity ([facility]) Morbid obesity Well woman exam with routine gynecological exam- Primary Routine gynecological examination Morbid obesity ([facility]) Morbid obesity Metabolic encephalopathy- Primary OSMANY (obstructive sleep apnea) Obstructive sleep apnea (adult) (pediatric) Morbid obesity ([facility]) Morbid obesity Bilateral lower extremity edema Tobacco dependence Tobacco use disorder Bipolar disorder with severe depression ([facility]) At risk for polypharmacy Anxiety Anxiety state, unspecified Primary hypertension Unspecified essential hypertension Right bundle branch block (RBBB) determined by electrocardiography Primary hypertension- Primary Unspecified essential hypertension Chronic kidney disease, stage 3a ([facility]) Morbid (severe) obesity due to excess calories ([facility]) Body mass index (BMI) 45.0-49.9, adult ([facility]) OSMANY (obstructive sleep apnea) Obstructive sleep apnea (adult) (pediatric) Hemiparesis, right ([facility]) Unspecified hemiplegia affecting unspecified side Gastroesophageal reflux disease, unspecified whether esophagitis present Metabolic encephalopathy Essential (primary) hypertension Unspecified essential hypertension Allergic rhinitis, unspecified Gastro-esophageal reflux disease without esophagitis Bilateral lower extremity edema Primary hypertension- Primary Unspecified essential hypertension Morbid (severe) obesity due to excess calories ([facility]) Essential (primary) hypertension Unspecified essential hypertension Allergic rhinitis, unspecified Gastro-esophageal reflux disease without esophagitis Bilateral lower extremity edema Bronchitis Bronchitis, not specified as acute or chronic Primary hypertension- Primary Unspecified essential hypertension Bronchitis Bronchitis, not specified as acute or chronic Bilateral lower extremity edema Morbid (severe) obesity due to excess calories ([facility]) Pre-diabetes Other abnormal glucose Allergic rhinitis, unspecified [...] due to excess calories ([facility]) Primary hypertension Unspecified essential hypertension Anemia, unspecified type Bilateral lower extremity edema Osteoporosis, unspecified osteoporosis type, unspecified pathological fracture presence Chronic kidney disease, stage 3a ([facility]) Pre-diabetes Other abnormal glucose documented in this encounter [facility] HealthcareHistory and physical note Author Jace Graham [facility] March 23, 2023 11:21am Note Date/Time March 23, 2023 11:21am [facility] [address] [place] [address] Gastroenterology H&P Signed Patient: Michelle Be MR#: [id number] : 1960 Acct:[id number] Age/Sex: 62 / F Adm Date: 3 Loc: Room: Type: [facility] Attending Dr: Jace Graham MD [...] signed by Jace Graham MD> 03/23/23 1121 [facility] Work Phone: History general [...] see above surg Hospitalization History stroke 2018 [employer] Other Hospital Discharge instructions Additional Instructions Regular Diet [facility] Discharge instructions [...] years. -Follow up with PCP. -Office number [phone].[facility] Work Phone: reason for visit Narrative* Consultation (Routine) - Closed Specialty Diagnoses / Procedures Referred By Contac t Referred To Contact Neuropsychology Diagnoses Memory change Procedures CO OFFICE/OUTPATIENT [facility]3] Juany Leggett PA [address] [place] [address] Phone: tel: fax: David Foster, PhD [address] [address] Phone: tel: fax: Referral ID Status Reason Start Date Expiration Date V isits Requested Visits Authorized [id number] Closed Specialty Services Required 03/07/2024 09/03/2024 1 [...] Documents on File Type Date Recorded Patient Therapist'S Assistant Expl anation Power of Automotive Finance Manager 03/10/2024 3:12 PM POA Documents on File Type Date Recorded Patient Therapist'S Assistant Expl anation Power of Automotive Finance Manager 03/10/2024 3:12 PM POA Documents on File Type Date Recorded Patient Therapist'S Assistant Expl anation Power of Automotive Finance Manager 03/16/2024 9:42 AM darian r of warp bleaching vat tender Power of Automotive Finance Manager 03/10/2024 3:12 PM POA Documents on File Type Date Recorded Patient Therapist'S Assistant Expl anation Power of Automotive Finance Manager 03/16/2024 9:42 AM darian r of warp bleaching vat tender Power of Automotive Finance Manager 03/10/2024 3:12 PM POA Chief Complaint and Reason for Visit Chief Complaint Bipolar Depression Reason for Visit Allergies Bipolar 2 disorder Hypertension Morbid obesity with BMI of 45.0-49.9, adult OSMANY (obstructive sleep apnea) Restless legs syndrome Chief Complaint Screening Additional Source Comments INFORMATION SOURCE (unrecogn ized section and content) DATE CREATED AUTHOR 02/18/2019 [facility] DATE CREATED AUTHOR AUTHOR'S ORGANIZ ATION 11/15/2021 [facility] DATE CREATED AUTHOR AUTHOR'S ORGANIZ ATION 08/16/2022 [facility] DATE CREATED AUTHOR AUTHOR'S ORGANIZ ATION 10/09/2024 [facility] DATE CREATED AUTHOR AUTHOR'S ORGANIZ ATION 10/23/2024 [facility] DATE CREATED AUTHOR AUTHOR'S ORGANIZ ATION 11/11/2024 [facility] DATE CREATED AUTHOR AUTHOR'S ORGANIZ ATION 11/15/2024 [facility] dical Specialists EPIC Care Teams (unrecognized [...] MD Other Provider Active Joellen Le , AUDIO/VISUAL MANAGER-C Other Provider Active Severo Yancey MD Other Provider Active Rao Webber MD Other Provider Active Yuan Shi MD Other Provider Active Delroy Ramirez MD Other Provider Active Berta Comer , DO Other Provider Active Negrito Ruiz , DO Other Provider Active Lacho Singh , DO Other Provider Active Rachana Hobson , CONCRETE POLISHER Other Provider Active Rob Lake , DO Other Provider Active Jeff Alvarez MD Other Provider Active Urmila Rinaldi , CONCRETE POLISHER Other Provider Active Bina Mayberry , CONCRETE POLISHER Other Provider Active Mir Bradford MD Other Provider Active Te Da Silva MD Other Provider Active Debra Landaverde RN Other Provider Active Team Status: Inactive Member Role Status Dates Adelaida Carrion Primary Care Provider Active Jace Graham MD Attending Provider Active Community Integration Specialist Relationship Specialty Start Date End Date José Luis Roberts MD [address] [place] [address] PCP - General Family Medicine 05/18/23 Adelaida Carrion NP [address] [place] [address] Referring Physician Nurse Practitioner 10/14/22 Community Integration Specialist Relationship Specialty Start Date End Date José Luis Roberts MD [address] [place] [address] PCP - General Family Medicine 05/18/23 Adelaida Carrion NP [address] [place] [address] Referring Physician Nurse Practitioner 10/14/22 Community Integration Specialist Relationship Specialty Start Date End Date José Luis Roberts MD [address] [place] [address] PCP - General Family Medicine 05/18/23 Adelaida Carrion NP [address] [place] [address] Referring Physician Nurse Practitioner 10/14/22 Community Integration Specialist Relationship Specialty Start Date End Date José Luis Roberts MD [address] [place] [address] PCP - General Family Medicine 05/18/23 Adelaida Carrion NP Referring Physician Nurse Practitioner 10/14/22 Miriam Suarez DO [address] [place] [address] Referring Physician Neurology 06/29/23 [place] LPN Licensed Practical Nurse Family Medicine 12/18/23 Community Integration Specialist Relationship Specialty Start Date End Date José Luis Roberts MD [address] [place] [address] PCP - General Family Medicine 05/18/23 Adelaida Carrion NP Referring Physician Nurse Practitioner 10/14/22 Miriam Suarez DO [address] [place] [address] Referring Physician Neurology 06/29/23 [place] LPN Licensed Practical Nurse Family Medicine 12/18/23 Community Integration Specialist Relationship Specialty Start Date End Date Unallocated, Noms MD [address] [place] [address] PCP - General Family Medicine 01/27/24 Miriam Suarez DO [address] [place] [address] Referring Physician Neurology 06/29/23 [place] LPN Licensed Practical Nurse Family Medicine 12/18/23 Adelaida Carrion, BRIANA [address] [place] [address] Nurse Practitioner Family Medicine 01/27/24 Community Integration Specialist Relationship Specialty Start Date End Date Unallocated, Geeta Sierra MD [address] [place] [address] PCP - General Family Medicine 01/27/24 Miriam Suarez DO [address] [place] [address] Referring Physician Neurology 06/29/23 [place] LPN Licensed Practical Nurse Family Medicine 12/18/23 Adelaida Carrion, BRIANA [address] [place] [address] Nurse Practitioner Family Medicine 01/27/24 Community Integration Specialist Relationship Specialty Start Date End Date José Luis Roberts MD [address] [place] [address] PCP - General Family Medicine 02/02/24 Miriam Suarez DO [address] [place] [address] Referring Physician Neurology 06/29/23 [place] LPN Licensed Practical Nurse Family Medicine 12/18/23 Adelaida Carrion NP [address] [place] [address] Nurse Practitioner Family Medicine 01/27/24 Community Integration Specialist Relationship Specialty Start Date End Date José Luis Roberts MD [address] [place] [address] PCP - General Family Medicine 02/02/24 Miriam Suarez DO [address] [place], [place] [address] Referring Physician Neurology 06/29/23 Adelaida Carrion NP [address] [place] [address] Nurse Practitioner Family Medicine 01/27/24 Bong Rosado MA Family Medicine 02/12/24 Community Integration Specialist Relationship Specialty Start Date End Date José Luis Roberts MD [address] [place] [address] PCP - General Family Medicine 02/02/24 Miriam Suarez DO [address] [place], [place] [address] Referring Physician Neurology 06/29/23 Adelaida Carrion NP [address] [place] [address] Nurse Practitioner Family Medicine 01/27/24 Bong Rosado MA Family Medicine 02/12/24 Community Integration Specialist Relationship Specialty Start Date End Date José Luis Roberts MD [address] [place] [address] PCP - General Family Medicine 02/02/24 Miriam Suarez DO [address] [place] [address] Referring Physician Neurology 06/29/23 Adelaida Carrion NP [address] [place] [address] Nurse Practitioner Family Medicine 01/27/24 Bong Rosado MA Family Medicine 02/12/24 Community Integration Specialist Relationship Specialty Start Date End Date José Luis Roberts MD [address] [place] [address] PCP - General Family Medicine 02/02/24 Miriam Suarez DO [address] [place] [address] Referring Physician Neurology 06/29/23 Adelaida Carrion NP [address] [place] [address] Nurse Practitioner Family Medicine 01/27/24 Bong Rosado MA Family Medicine 02/12/24 Community Integration Specialist Relationship Specialty Start Date End Date José Luis Roberts MD [address] [place] [address] PCP - General Family Medicine 02/02/24 Miriam Suarez DO [address] [place] [address] Referring Physician Neurology 06/29/23 Adelaida Carrion, BRIANA [address] [place] [address] Nurse Practitioner Family Medicine 01/27/24 Bong Rosado MA Family Medicine 02/12/24 Community Integration Specialist Relationship Specialty Start Date End Date José Luis Roberts MD [address] [place] [address] PCP - General Family Medicine 02/02/24 Miriam Suarez DO [address] [place], [place] [address] Referring Physician Neurology 06/29/23 Adelaida Carrion NP [address] [place] [address] Nurse Practitioner Family Medicine 01/27/24 Bong Rosado MA Family Medicine 02/12/24 Community Integration Specialist Relationship Specialty Start Date End Date José Luis Roberts MD [address] [place] [address] PCP - General Family Medicine 02/02/24 Miriam Suarez DO [address] [place], [place] [address] Referring Physician Neurology 06/29/23 Adelaida Carrion NP [address] [place] [address] Nurse Practitioner Family Medicine 01/27/24 Bong Rosado MA Family Medicine 02/12/24 Community Integration Specialist Relationship Specialty Start Date End Date José Luis Roberts MD [address] [place] [address] PCP - General Family Medicine 02/02/24 Miriam Suarez DO [address] [place] [address] Referring Physician Neurology 06/29/23 Adelaida Carrion NP [address] [place] [address] Nurse Practitioner Family Medicine 01/27/24 Bong Rosado MA Family Medicine 02/12/24 Community Integration Specialist Relationship Specialty Start Date End Date José Luis Roberts MD [address] [place] [address] PCP - General Family Medicine 02/02/24 Miriam Suarez DO [address] [place] [address] Referring Physician Neurology 06/29/23 Adelaida Carrion NP [address] [place] [address] Nurse Practitioner Family Medicine 01/27/24 Bong Rosado MA Family Medicine 02/12/24 Community Integration Specialist Relationship Specialty Start Date End Date José Luis Roberts MD [address] [place] [address] PCP - General Family Medicine 02/02/24 Miriam Suarez DO [address] [place] [address] Referring Physician Neurology 06/29/23 Adelaida Carrion, BRIANA [address] [place] [address] Nurse Practitioner Family Medicine 01/27/24 Bong Rosado MA Family Medicine 02/12/24 Community Integration Specialist Relationship Specialty Start Date End Date José Luis Roberts MD [address] [place] [address] PCP - General Family Medicine 02/02/24 Miriam Suarez DO [address] [place], [place] [address] Referring Physician Neurology 06/29/23 Adelaida Carrion, BRIANA [address] [place] [address] Nurse Practitioner Family Medicine 01/27/24 Bong Rosado MA Family Medicine 02/12/24 Community Integration Specialist Relationship Specialty Start Date End Date José Luis Roberts MD [address] [place] [address] PCP - General Family Medicine 05/18/23 Adelaida Carrion, BRIANA Referring Physician Nurse Practitioner 10/14/22 Miriam Suarez DO [address] [place], [place] [address] Referring Physician Neurology 06/29/23 Mathew Parra LPN Licensed Practical Nurse Family Medicine 07/23/23 Community Integration Specialist Relationship Specialty Start Date End Date José Luis Roberts MD [address] [place] [address] PCP - General Family Medicine 05/18/23 Adelaida Carrion NP Referring Physician Nurse Practitioner 10/14/22 Miriam Suarez DO [address] [place], [place] [address] Referring Physician Neurology 06/29/23 Mathew Parra LPN Licensed Practical Nurse Family Medicine 07/23/23 Community Integration Specialist Relationship Specialty Start Date End Date José Luis Roberts MD [address] [place] [address] PCP - General Family Medicine 05/18/23 Adelaida Carrion NP Referring Physician Nurse Practitioner 10/14/22 Miriam Suarez DO [address] [place] [address] Referring Physician Neurology 06/29/23 Mathew Parra LPN Licensed Practical Nurse Family Medicine 07/23/23 Community Integration Specialist Relationship Specialty Start Date End Date José Luis Roberts MD [address] [place] [address] PCP - General Family Medicine 05/18/23 Adelaida Carrion NP Referring Physician Nurse Practitioner 10/14/22 Miriam Suarez DO [address] [place] [address] Referring Physician Neurology 06/29/23 Mathew Parra LPN Licensed Practical Nurse Family Medicine 07/23/23 Community Integration Specialist Relationship Specialty Start Date End Date José Luis Roberts MD [address] [place] [address] PCP - General Family Medicine 05/18/23 Adelaida Carrion NP Referring Physician Nurse Practitioner 10/14/22 Miriam Suarez DO [address] [place], [place] [address] Referring Physician Neurology 06/29/23 [place] LPN Licensed Practical Nurse Family Medicine 12/18/23 Community Integration Specialist Relationship Specialty Start Date End Date José Luis Roberts MD [address] [place] [address] PCP - General Family Medicine 05/18/23 Adelaida Carrion NP Referring Physician Nurse Practitioner 10/14/22 Miriam Suarez DO [address] [place], [place] [address] Referring Physician Neurology 06/29/23 [place] LPN Licensed Practical Nurse Family Medicine 12/18/23 Community Integration Specialist Relationship Specialty Start Date End Date José Luis Roberts MD [address] [place] [address] PCP - General Family Medicine 05/18/23 Adelaida Carrion NP Referring Physician Nurse Practitioner 10/14/22 Miriam Suarez DO [address] [place] [address] Referring Physician Neurology 06/29/23 [place] LPN Licensed Practical Nurse Family Medicine 12/18/23 Community Integration Specialist Relationship Specialty Start Date End Date José Luis Roberts MD [address] [place] [address] PCP - General Family Medicine 02/02/24 Miriam Suarez DO [address] [place] [address] Referring Physician Neurology 06/29/23 Adelaida Carrion NP [address] [place] [address] Nurse Practitioner Family Medicine 01/27/24 Bnog Rosado MA Family Medicine 02/12/24 Community Integration Specialist Relationship Specialty Start Date End Date José Luis Roberts MD [address] [place] [address] PCP - General Family Medicine 02/02/24 Miriam Suarez DO [address] [place] [address] Referring Physician Neurology 06/29/23 Adelaida Carrion NP [address] [place] [address] Nurse Practitioner Family Medicine 01/27/24 Bong Rosado MA Family Medicine 02/12/24 Community Integration Specialist Relationship Specialty Start Date End Date José Luis Roberts MD [address] [place] [address] PCP - General Family Medicine 02/02/24 Miriam Suarez DO [address] [place], [place] [address] Referring Physician Neurology 06/29/23 Adelaida Carrion NP [address] [place] [address] Nurse Practitioner Family Medicine 01/27/24 Bong Rosado MA Family Medicine 02/12/24 Community Integration Specialist Relationship Specialty Start Date End Date José Luis Roberts MD [address] [place] [address] PCP - General Family Medicine 02/02/24 Miriam Suarez DO [address] [place], [place] [address] Referring Physician Neurology 06/29/23 Adelaida Carrion, BRIANA [address] [place] [address] Nurse Practitioner Family Medicine 01/27/24 Bong Rosado MA Family Medicine 02/12/24 Community Integration Specialist Relationship Specialty Start Date End Date José Luis Roberts MD [address] [place] [address] PCP - General Family Medicine 02/02/24 Miriam Suarez DO [address] [place], [place] [address] Referring Physician Neurology 06/29/23 Adelaida Carrion NP [address] [place] [address] Nurse Practitioner Family Medicine 01/27/24 Bong Rosado MA Family Medicine 02/12/24 Community Integration Specialist Relationship Specialty Start Date End Date José Luis Roberts MD [address] [place] [address] PCP - General Family Medicine 02/02/24 Miriam Suarez DO [address] [place], [place] [address] Referring Physician Neurology 06/29/23 Adelaida Carrion NP [address] [place] [address] Nurse Practitioner Family Medicine 01/27/24 Bong Rosado MA Family Medicine 02/12/24 Community Integration Specialist Relationship Specialty Start Date End Date José Luis Roberts MD [address] [place] [address] PCP - General Family Medicine 02/02/24 Miriam Suarez DO [address] [place], [place] [address] Referring Physician Neurology 06/29/23 Adelaida Carrion NP [address] [place] [address] Nurse Practitioner Family Medicine 01/27/24 Bong Rosado MA Family Medicine 02/12/24 Juany Leggett PA [address] [place] [address] Physician Photo Technologist Neurology 07/26/24 Community Integration Specialist Relationship Specialty Start Date End Date José Luis Roberts MD [address] [place] [address] PCP - General Family Medicine 02/02/24 Miriam Suarez DO [address] [place] [address] Referring Physician Neurology 06/29/23 Adelaida Carrion NP [address] [place] [address] Nurse Practitioner Family Medicine 01/27/24 Bong Rosado MA Family Medicine 02/12/24 Juany Leggett PA [address] [place] [address] Physician Photo Technologist Neurology 07/26/24 Community Integration Specialist Relationship Specialty Start Date End Date José Luis Roberts MD [address] [place] [address] PCP - General Family Medicine 02/02/24 Miriam Suarez DO [address] [place] [address] Referring Physician Neurology 06/29/23 Adelaida Carrion NP [address] [place] [address] Nurse Practitioner Family Medicine 01/27/24 Bong Rosado MA Family Medicine 02/12/24 Juany Leggett PA [address] [place] [address] Physician Photo Technologist Neurology 07/26/24 Community Integration Specialist Relationship Specialty Start Date End Date José Luis Roberts MD [address] [place] [address] PCP - General Family Medicine 02/02/24 Miriam Suarez DO [address] [place] [address] Referring Physician Neurology 06/29/23 Adelaida Carrion NP [address] [place] [address] Nurse Practitioner Family Medicine 01/27/24 Bong Rosado MA Family Medicine 02/12/24 Juany Leggett PA [address] [place] [address] Physician Photo Technologist Neurology 07/26/24 Community Integration Specialist Relationship Specialty Start Date End Date José Luis Roberts MD [address] [place] [address] PCP - General Family Medicine 02/02/24 Miriam Suarez DO [address] [place] [address] Referring Physician Neurology 06/29/23 Adelaida Carrion NP [address] [place] [address] Nurse Practitioner Family Medicine 01/27/24 Bong Rosado MA Family Medicine 02/12/24 Juany Leggett PA [address] [place] [address] Physician Photo Technologist Neurology 07/26/24 Community Integration Specialist Relationship Specialty Start Date End Date José Luis Roberts MD [address] [place] [address] PCP - General Family Medicine 02/02/24 Miriam Suarez DO [address] [place], [place] [id number] Referring Physician Neurology 06/29/23 Adelaida Carrion NP [address] [place] [phone] Nurse Practitioner Family Medicine 01/27/24 Bong Rosado MA Family Medicine 02/12/24 Juany Leggett PA [address] [place], [place] [id number] Physician Photo Technologist Neurology 07/26/24 Community Integration Specialist Relationship Specialty Start Date End Date José Luis Roberts MD [address] [place] [id number] PCP - General Family Medicine 02/02/24 Miriam Suarez DO [address] [place], [place] [id number] Referring Physician Neurology 06/29/23 Adelaida Carrion NP [address] [place] [phone] Nurse Practitioner Family Medicine 01/27/24 Bong Rosado MA [address] [place] [address] Family Medicine 02/12/24 Juany Leggett PA [address] [place] [address] Physician Photo Technologist Neurology 07/26/24 Community Integration Specialist Relationship Specialty Start Date End Date José Luis Roberts MD [address] [place] [phone] PCP - General Family Medicine 02/02/24 Miriam Suarez DO [address] [place] [address] Referring Physician Neurology 06/29/23 Adelaida Carrion NP [address] [place] [phone] Nurse Practitioner Family Medicine 01/27/24 Bong Rosado MA [address] [place] [address] Family Medicine 02/12/24 Juany Leggett PA [address] [place] [address] Physician Photo Technologist Neurology 07/26/24 Community Integration Specialist Relationship Specialty Start Date End Date José Luis Roberts MD [address] [place] [phone] PCP - General Family Medicine 02/02/24 Miriam Suarez DO [address] [place] [address] Referring Physician Neurology 06/29/23 Adelaida Carrion, BRIANA [address] [place] [phone] Nurse Practitioner Family Medicine 01/27/24 Bong Rosado MA [address] [place] [address] Family Medicine 02/12/24 Juany Leggett PA [address] [place] [address] Physician Photo Technologist Neurology 07/26/24 Community Integration Specialist Relationship Specialty Start Date End Date José Luis Roberts MD [address] [place] [phone] PCP - General Family Medicine 02/02/24 Miriam Suarez DO [address] [place] [address] Referring Physician Neurology 06/29/23 Adelaida Carrion, BRIANA [address] [place] [phone] Nurse Practitioner Family Medicine 01/27/24 Bong Rosado MA [address] [place] [address] Family Medicine 02/12/24 Juany Leggett PA [address] [place] [address] Physician Photo Technologist Neurology 07/26/24 Community Integration Specialist Relationship Specialty Start Date End Date José Luis Roberts MD [address] [place] [phone] PCP - General Family Medicine 02/02/24 Miriam Suarez DO [address] [place] [address] Referring Physician Neurology 06/29/23 Adelaida Carrion NP [address] [place] [address] Nurse Practitioner Family Medicine 01/27/24 Bong Rosado MA [address] [place] [address] Family Medicine 02/12/24 Juany Leggett PA [address] [place] [address] Physician Photo Technologist Neurology 07/26/24 Community Integration Specialist Relationship Specialty Start Date End Date José Luis Roberts MD [address] [place] [phone] PCP - General Family Medicine 02/02/24 Miriam Suarez DO [address] [place] [address] Referring Physician Neurology 06/29/23 Adelaida Carrion NP [address] [place] [phone] Nurse Practitioner Family Medicine 01/27/24 Bong Rosado MA [address] [place] [address] Family Medicine 02/12/24 Juany Leggett PA [address] [place] [address] Physician Photo Technologist Neurology 07/26/24 REASON FOR VISIT (unrecogniz ed [...] BE BASED ON THE PRIMARY CLINICAL RECORDS. [employer] provides no warranty or guarantee of the accuracy or completeness of information in this document.
--- NOTE | 2024-11-16 11:10 | PM.CN ---
Consult Note: HPI Data of Consult Patient: known to practice within the last 3 years Requesting Physician: Bhakti Culp NP Primary Care Provider: Adelaida Carrion NP Consult Narrative Reason for consult: f/u Narrative: Nasim Ingram a 63 year old female with longstanding low back pain and bilateral hip pain. has engaged in provider guided HEP > 6 weeks without benefit, failed tylenol heat and ice, cannot utilize NSAIDs with hx of gastric bypass. currently utilizing gabapentin, tizanidine, duloxetine with mild benefit, denies side effects. recently underwent bilateral GTB injection with 100% improvement in pain to lateral hips per pt. noting left low back pain today, 4/10 increasing to 6/10 with standing, walking, sleep. mild improvement with heat and medications. cc:: CC: Bhakti Culp NP [facility] Medical History FH: bariatric surgery ?Z84.89 - Family history of other specified conditions (ICD-10) Upper back pain ?M54.9 - Dorsalgia, unspecified (ICD-10) Osteoarthritis ?M19.90 - Unspecified osteoarthritis, unspecified site (ICD-10) Neck pain ?M54.2 - Cervicalgia (ICD-10) Low back pain ?M54.50 - Low back pain, unspecified (ICD-10) Fibromyalgia ?M79.7 - Fibromyalgia (ICD-10) Bipolar 1 disorder ?F31.9 - Bipolar disorder, unspecified (ICD-10) Acid reflux ?K21.9 - Gastro-esophageal reflux disease without esophagitis (ICD-10) Obesity ?E66.9 - Obesity, unspecified (ICD-10) Sleep apnea ?G47.30 - Sleep apnea, unspecified (ICD-10) Heart murmur ?R01.1 - Cardiac murmur, unspecified (ICD-10) High cholesterol ?E78.00 - Pure hypercholesterolemia, unspecified (ICD-10) Hypertension ?I10 - Essential (primary) hypertension (ICD-10) Surgical History S/P dilatation and curettage ?Z98.890 - Other specified postprocedural states (ICD-10) H/O breast biopsy ?Z98.890 - Other specified postprocedural states (ICD-10) S/P ORIF (open reduction internal fixation) fracture ?Z98.890 - Other specified postprocedural states (ICD-10) ?Z87.81 - Personal history of (healed) traumatic fracture (ICD-10) Hx of laparoscopic gastric banding ?Z98.84 - Bariatric surgery status (ICD-10) History of tonsillectomy and adenoidectomy ?Z90.89 - Acquired absence of other organs (ICD-10) History of appendectomy ?Z90.49 - Acquired absence of other specified parts of digestive tract (ICD-10) History of hemilaminectomy ?Z98.890 - Other specified postprocedural states (ICD-10) History of cholecystectomy ?Z90.49 - Acquired absence of other specified parts of digestive tract (ICD-10) Previous section ?Z98.891 - History of uterine scar from previous surgery (ICD-10) Social History Within the past year, how often did you have a drink containing alcohol: never Within the past year, how often did you have six or more drinks on one occasion: never Score interpretation: A score less than 3 is consistent with normal alcohol consumption. 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 Known occupational exposures/hazards: No Highest level of school completed/degree received: Bachelor's degree Do you want help with school or training: No Little interest or pleasure in doing things: not at all Feeling down, depressed, or hopeless: several days Meds Home Medications and Allergies Home Medications ?Medication ?Instructions ?Recorded ?Confirmed ?Type amlodipine 10 mg tablet (Norvasc) 10 mg PO DAILY 09/10/22 10/08/24 History biotin 1 mg capsule 5 mg PO DAILY 09/10/22 09/19/24 History cariprazine 4.5 mg capsule 4.5 mg PO Q24H 09/10/22 09/19/24 History (Vraylar) duloxetine 60 mg capsule,delayed 60 mg PO BID 09/10/22 10/08/24 History release ferrous sulfate 325 mg (65 mg 325 mg PO BID 09/10/22 09/19/24 History iron) tablet (FeroSul) magnesium 200 mg tablet 400 mg PO QDAY 09/10/22 09/19/24 History melatonin 12 mg tablet 12 mg PO .HS PRN sleep 09/10/22 09/19/24 History omeprazole 20 mg capsule,delayed 20 mg PO QDAY 09/10/22 10/08/24 History release trazodone 150 mg tablet 150 mg PO .HS 09/10/22 10/08/24 History fluticasone propionate 50 2 spray intranasal DAILY PRN 10/20/23 10/08/24 History mcg/actuation nasal allergy symptoms spray,suspension (Flonase Allergy Relief) spironolactone 50 mg tablet 50 mg PO DAILY 10/20/23 10/08/24 History gabapentin 300 mg capsule 300 mg PO BID 11/03/23 10/08/24 History calcium citrate 200 mg PO QID 11/04/23 09/19/24 History carvedilol 12.5 mg tablet 12.5 mg PO Q12H 11/04/23 10/08/24 History multivitamin 1 tab PO DAILY 11/04/23 09/19/24 History fexofenadine 60 mg tablet (Naida 60 mg PO BID 08/08/24 09/19/24 History Allergy) losartan 100 mg tablet 100 mg PO DAILY 10/08/24 10/08/24 History ropinirole 3 mg tablet 3 mg PO .QHS 10/08/24 10/08/24 History tizanidine 4 mg tablet 4 mg PO TID PRN muscle spasticity 10/08/24 10/08/24 History Allergies Allergy/AdvReac Type Severity Reaction Status Date / Time levetiracetam (From Keppra) Allergy Severe Unknown Verified 10/08/24 02:29 adhesive Allergy Intermediate Blister Verified 10/08/24 02:29 Penicillins Allergy Intermediate Unknown Verified 10/08/24 02:29 tetracycline Allergy Intermediate Unknown Verified 10/08/24 02:29 eszopiclone (From Lunesta) Allergy Unknown Verified 10/08/24 02:29 milnacipran (From Savella) AdvReac Intermediate Agitated Verified 10/08/24 02:29 prochlorperazine (From AdvReac Intermediate Agitated Verified 10/08/24 02:29 Compazine) Exam Constitutional Documenting provider has reviewed patient's vital signs: yes Common normals: no apparent distress, oriented x3, healthy appearing, alert and well nourished General appearance: cooperative HENMT Common normals: normocephalic, hearing grossly normal bilaterally and moist oral mucous membranes Head and scalp: normocephalic Eye Common normals: PERRL Pupil: PERRL Neck & C-Spine Common normals: full ROM General: normal visual inspection Chest Common normals: inspection of chest normal Respiratory Common normals: normal respiratory effort, no retractions and no use of accessory muscles Back & Pelvis Lumbar spine/lower back: ROM limited, pain with ROM, lumbar spinal tenderness and straight leg raise negative bilaterally Sacroiliac joints: SI joints normal Other: increased low back pain with standing and walking, improves with forward flexion and sitting Neuro Common normals: oriented x3 Sensorium/orientation: alert Psych Common normals: mental status grossly normal, thought process normal, cooperative, affect normal, speech normal and activity/motor behavior normal Speech: normal speech Thought process: normal thought process Results Additional Findings Additional findings: If on a controlled substance or opioids, I have checked an [place] report on this patient and there are no aberrancies noted in the prescribing history.??If on a controlled substance or opioid a drug screen was completed and reviewed within the last year, and if there has not been a drug screen completed we ordered one today to monitor higher risk, state monitored pain medication use. As part of providing excellent, safe, comprehensive care, the following was completed at our patient's visit: 1. A medication reconciliation and review to ensure accurate knowledge of current/active medications, including asking our patients to inform us about any [id number] medications or herbal remedies/nutritional supplements/alternative remedies. 2. A review to specifically ensure our patients have had annual screening for screening for depression, screening for tobacco use, and screening for unhealthy alcohol use. For concerning screenings had a discussion with the patient, provided patient education, and recommended follow-up with primary care provider when appropriate. If patient noted with a risk of falling, they received education on strength, gait, and balance training to prevent future risk of falling. Portions of this note may have been carried over from the previous visit and updated as appropriate. Please note this office utilizes paper charting in addition to the electronic medical record. A list of current medications, vitals, and PMH is available there as the clinical staff outside of myself do not have access to [facility] charting during the clinic day operations. As part of providing quality comprehensive care the current medications, vitals, and PMH were reviewed in the paper chart. Assessment and Plan Assessment and Plan (1) Lumbar stenosis with neurogenic claudication: (2) Greater trochanteric bursitis of both hips: (3) Lumbar spondylosis: (4) Sacroiliitis: Plan update lumbar mri without contrast to assess chronic low back pain >12 months unresponsive to > 6 weeks of HEP, heat, ice, cannot take NSAIDs. 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 MRI essential in consideration of lumbar interventional therapy vs NS consultation continue current medications, risks vs benefits reviewed continue HEP as tolerated f/u to review MRI
== END 2024-11-16 10:39 | disposition home or self-care (01) ==
LOC: PM 10:39
PROVIDERS: PCP Nurse Practitioner; Visit Provider Nurse Practitioner
DX: M48.062 Spinal stenosis, lumbar region with neurogenic claudication (principal); M70.62 Trochanteric bursitis, left hip; M70.61 Trochanteric bursitis, right hip; M47.816 Spondylosis without myelopathy or radiculopathy, lumbar region; M46.1 Sacroiliitis, not elsewhere classified
CPT/HCPCS: G0463

== ENCOUNTER 2024-11-23 08:22 | Outpatient (OUT) | payer MEDICARE, SELFPAY ==
--- OUTSIDE RECORDS SUMMARY | 2024-11-23 08:33 | XMS_ITS | CCD ---
Author Organization [facility] Care Team Providers Care Drug Safety Coordinator Name Role Phone EBRAHEIM, SUKI Admitting Unavailable EBRAHEIM, SUKI Attending Unavailable AICHHOLZ, ADELAIDA Referring Unavailable AICHHOLZ, ADELAIDA Primary Care Unavailable LA Procedure Practitioner Unavailab SUKI Jacob Surgeon Unavailable LA Procedure Practitioner Unavailab CHAPARRITA Goncalves Surgeon Unavailable BRIDGETTE MACEDO Admitting Unavailable BRIDGETTE MACEDO Attending Unavailable AICHHOLZ, KILN OPERATOR ADELAIDA Primary Care Unavailable NIXON ., DR FINA Iverson Admitting Unavailable NIXON ., DR FINA Iverson Attending Unavailable AICHHOLZ, KILN OPERATOR ADELAIDA Primary Care Unavailable MCDANIEL ., ZELDA Consulting Unavailable LAKSHMIPATHY ., NARENDRANATH Consulting Paula vailable LAKSHMIPATHY ., NARENDRANATH Admitting Paula vailable LAKSHMIPATHY ., NARENDRANATH Attending Paula vailable AICHHOLZ, KILN OPERATOR ADELAIDA Primary Care Unavailable LAKSHMIPATHY ., NARENDRANATH Consulting Paula vailable AICHHOLZ, KILN OPERATOR ADELAIDA Primary Care Unavailable MARKER ., DR CHAUDHRY Admitting Unavailable MARKER ., DR CHAUDHRY Attending Unavailable MARKER ., DR CHAUDHRY Consulting Unavailable AICHHOLZ, KILN OPERATOR ADELAIDA Admitting Unavailable AICHHOLZ, KILN OPERATOR ADELAIDA Attending Unavailable AICHHOLZ, KILN OPERATOR ADELAIDA Primary Care Unavailable NIXON ., DR FINA Iverson Admitting Unavailable NIXON ., DR FINA Iversno Attending Unavailable AICHHOLZ, KILN OPERATOR ADELAIDA Primary Care Unavailable MCDANIEL ., ZELDA Consulting Unavailable NIXON ., DR FINA Iverson Admitting Unavailable NIXON ., DR FINA Iverson Attending Unavailable AICHHOLZ, KILN OPERATOR ADELAIDA Primary Care Unavailable MCDANIEL ., ZELDA Consulting Unavailable AICHHOLZ, KILN OPERATOR ADELAIDA Admitting Unavailable AICHHOLZ, KILN OPERATOR ADELAIDA Attending Unavailable AICHHOLZ, KILN OPERATOR ADELAIDA Primary Care Unavailable AICHHOLZ, KILN OPERATOR ADELAIDA Consulting Unavailable AICHOLZ, KILN OPERATOR ADELAIDA Admitting Unavailable AICHHOLZ, KILN OPERATOR ADELAIDA Attending Unavailable AICHOLZ, [facility] ADELAIDA Primary Care Unavailable AICHHOLZ, KILN OPERATOR ADELAIDA Consulting Unavailable MISC, DR COTE Admitting Unavailable MISC, DR COTE Attending Unavailable AICHOLZ, [facility] ADELAIDA Primary Care Unavailable AICHHOLZ, KILN OPERATOR ADELAIDA Consulting Unavailable ELYSSA, DR COTE Consulting Unavailable STARR, DR KINGSLEY Atkins Consulting Unavailable NIXON ., DR FINA Iverson Admitting Unavailable NIXON ., DR FINA Iverson Attending Unavailable AICHOLZ, [facility] ADELAIDA Primary Care Unavailable MCDANIEL ., ZELDA Consulting Unavailable NIXON ., DR FINA Iverson Admitting Unavailable NIXON ., DR FINA Iverson Attending [facility] Primary Care Unavailable NIXON ., DR FINA Iverson Consulting Unavailable OMID LAY Consulting Unavailable NIXON ., DR FINA Iverson Admitting Unavailable NIXON ., DR FINA Iverson Attending Unavailable [facility], [facility] Primary Care Unavailable MCDANIEL ., ZELDA Consulting Unavailable [facility] Primary Care Unavailable HALKER ., ARIAN Admitting Unavailable HALKER ., ARIAN Attending Unavailable LAKSHMIPATHY ., NARENDRANATH Consulting Paula vailable HALKER ., ARIAN Consulting Unavailable LAKSHMIPATHY ., NARENDRANATH Admitting Paula vailable LAKSHMIPATHY ., NARENDRANATH Attending Paula vailable [facility], [facility] Primary Care Unavailable LAKSHMIPATHY ., NARENDRANATH Consulting Paula vailable AICHOLZ, KILN OPERATOR ADELAIDA Admitting Unavailable AICHOLZ, KILN OPERATOR ADELAIDA Attending Unavailable AICHOLZ, KILN OPERATOR ADELAIDA Primary Care Unavailable AICHHOLZ, KILN OPERATOR ADELAIDA Consulting Unavailable BIRDGETTE MACEDO Admitting Unavailable BRIDGETTE MACEDO Attending Unavailable AICHOLZ, KILN OPERATOR ADELAIDA Primary Care Unavailable STARR, DR KINGSLEY Atkins Consulting Unavailable BRIDGETTE MACEDO Consulting Unavailable GILMER NEVES Admitting Unavailable GILMER NEVES Attending Unavailable PURA, GILMER Consulting Unavailable AICHOLZ, KILN OPERATOR ADELAIDA Primary Care Unavailable AICHOLZ, KILN OPERATOR ADELAIDA Primary Care Unavailable DR WILLI RINALDI Admitting Unavailable DEEJAY, DR WILLI Atkins Attending Unavailable DR WILLI RINALDI Consulting Unavailable AICHOLZ, KILN OPERATOR ADELAIDA Primary Care Unavailable ALMAZ ., DANNY Admitting Unavailable ALMAZ ., DANNY Attending Unavailable DR KINGSLEY CLEMENTS Consulting Unavailable ALMAZ ., DANNY Consulting Unavailable LAKSHMIPATHY ., NARENDRANATH Admitting Paula vailable LAKSHMIPATHY ., NARENDRANATH Attending Paula vailable AICHHOLZ, KILN OPERATOR ADELAIDA Primary Care Unavailable AICHHOLZ, KILN OPERATOR ADELAIDA Admitting Unavailable AICHHOLZ, KILN OPERATOR ADELAIDA Attending Unavailable AICHHOLZ, KILN OPERATOR ADELAIDA Primary Care Unavailable AICHHOLZ, KILN OPERATOR ADELAIDA Admitting Unavailable AICHHOLZ, KILN OPERATOR ADELAIDA Attending Unavailable AICHHOLZ, KILN OPERATOR ADELAIDA Primary Care Unavailable AICHHOLZ, KILN OPERATOR ADELAIDA Consulting Unavailable ZIEBER, DR KINGSLEY Atkins Consulting Unavailable HALKER ., ARIAN Admitting Unavailable HALKER ., ARIAN Attending Unavailable AICHHOLZ, KILN OPERATOR ADELAIDA Primary Care Unavailable Aichholz, Adelaida J Primary Care Provider [phone] MD Gaudencio Monk Admit Provider MD Gaudencio Monk Attending Provider JOHANN Vieira Other Provider Unavailable JOHANN Pina Other Provider Unavailable JOHANN Hurtado Other Provider Unavailable JOHANN Crooks Other Provider Unavailable JOHANN Mejias Other Provider Unavailable JOHANN Kim Other Provider Unavailable MD Walker Pringle Other Provider Dilans, [employer] PL[employer] CONTROL ROOM OPERATOR Adelaida Huddleston Other Provider DO Jessica Murillo Other Provider MD Obdulio Bragg Other Provider DO Joon Cristina Other Provider [phone] MD Torin Robert Other Provider MD Dawn Barrera Other Provider Karlene ANP- Mari Other Provider MD Sofi Almanzar Other Provider [phone] MD Sharad Gallegos Other Provider MD [...] Other Provider ROSS Hobson Other Provider DO Rbo [place] Other Provider MD Sae Alvarezayquentin Huddleston Other Provider ROSS Rinaldi Other Provider ROSS Mayberry Other Provider MD Mir Bradford Other Provider MD Te Da Silva Other Provider JOHANN Landaverde Other Provider Unavailable Rosemary Kirkland Unavailable Jace Graham Unavailable Adelaida Carrion Primary Care Provider MD Jace Graham Attending Provider [phone] Sheyla DRYWALL INSTALLER, Adelaida Unavailable José Luis Roberts MD Primary Care Provider [phone] Sheyla DRYWALL INSTALLER, Adelaida Unavailable Daniela GRAHAM, Miriam Unavailable Moises CAMPBELL, Diana Unavailable Unavailable Unallocated , Noms Provider Primary Care Yadirai kellee Sheyla DRYWALL INSTALLER, Adelaida Unavailable José Luis Roberts MD Primary Care Provider Bong Rosado MA Unavailable Unavailable Aida CAMPBELL, Mathew Unavailable Unavailable Juany Yi Unavailable Bong Rosado MA Unavailable SHEYLA, ADELAIDA J Primary Care Unavailable AKSHAT BLACKWELL Consulting Unavailable Giedraitis , Andrius Sarabiaytmarta Attending Unavailable Giedraitis , Andrius Vytautargelia Attending Unavailable Giedraitis , Andrius Vytautargelia Attending Unavailable Giedraitis , Andrius Vytautargelia Attending Unavailable Giedraitis , Andrius Vytautargelia Attending Unavailable Giedraitis , Andrius Vytautas Attending Unavailable Giedraitis , Andrius Vytautas Attending Unavailable Dat Monkelrahman Admitting Unavailab le Eduardo Monk Attending Unavailab le Aichhollily, Adelaida J Primary Care Unavailable Aichhollily, Adelaida J Primary Care Unavailable Rob Lake Attending Unavailable Malinda Rosales Consulting Unavailable Delta Gan Admitting Unavailable David Foster Consulting Unavailable Daniela Miriam Consulting Unavailable VillasKingsley downing Consulting Unavailable Kar Burt Consulting Unavailab Dennis Hicks Consulting Unavailable Juany Caballero Consulting Unavailable Inna Melendez Consulting Unavailable Rocio Duncan Consulting Unavailable Chuck Hinkle Consulting Unavailable ADLEAIDA CARRION Attending Unavailable JUANY LEGGETT Attending Unavailable JUANY LEGGETT Attending Unavailable AICHHOLADELAIDA Barrett Attending Unavailable AICHHOLADELAIDA Barrett Attending Unavailable AICHHOLADELAIDA Barrett Attending Unavailable POCOS, HARRISON Shea Referring Unavailable POCOS, HARRISON Shea Attending Unavailable AICHHOLZADELAIDA Attending Unavailable POCOS, HARRISON Shea Referring Unavailable POCOS, HARRISON Shea Attending Unavailable POCOS, MICHEL Referring Unavailable SONAM BROWN Attending Unavailable GILLMOR, JUANY Attending Unavailable AICHHOLZ, ADELAIDA Attending Unavailable AICHHOLZ, ADELAIDA Attending Unavailable AICHHOLZ, ADELAIDA Attending Unavailable LOWE, JUANY Attending Unavailable STEPHEN, RACHEL Attending Unavailable DAVID FOSTER Attending Unavailable LOWE, JUANY Referring Unavailable AICHHOLZ, ADELAIDA Attending Unavailable STEPHEN, RACHEL Referring Unavailable Allergies Allergy Classification Reported Allergen(s) [...] allergy (disorder) 04-06-19 13 Unknown Reaction [facility] Repository (20 sources) levETIRAcetam; Translations: [levetiracetam] Drug Allergy 12-13-19 22 Hallucinations , Other [facility] (20 sources) milnacipran; Translations: [milnacipran] Drug Allergy 12-13-19 22 hives, Hallucinations , Other, Unknown [facility] (20 sources) Prochlorperazin e; Translations: [prochlorperazi ne] Drug Allergy 12-13-19 22 Unknown, Other [facility] (2 sources) Penicillin G Drug Allergy as a child [facility] Other (2 sources) Tetracaine Drug Allergy Unknown [facility] Other (20 sources) Penicillins Drug Intolerance 12-13-19 22 Anaphylaxis [facility] (20 sources) Other Propensity to adverse reactions 12-13-19 22 Other [facility] (20 sources) Wound Dressing Adhesive Drug Allergy 09-20-19 23 Rash, Unknown [facility] (20 sources) Eszopiclone Drug Allergy 09-21-19 24 Hallucinations , Anaphylaxis [facility] (1 source) Penicillin Drug Allergy 03-02-20 [facility] Repository (1 source) Penicillins Drug allergy (disorder) 03-02-20 [facility] Repository (1 source) Tetracaine Drug Allergy 03-02-20 [facility] Repository Medications Current Medications Medication Drug Class(es) [...] + D 0 Active Cannabinoids (medical cannabis) (8 sources) Cannabinoids (medical cannabis) Take 1 each [...] 2022 12:45am diazePAM 10 mg oral tablet (6 sources) Benzodiazepine Start: 10-31-2024 diazePAM (Valium) 10 [...] Active fexofenadine hydrochloride 180 mg oral tablet (19 sources) Histamine-1 Receptor Antagonist Start: 08-16-2024 End: [...] 0 Active Iron-Vitamin C (IRON 100/C PO) (8 sources) Iron-Vitamin C ( IRON 100/C PO) [...] tablet (6 sources) Benzodiazepine Start: 08-27-19 End: 08-11-20 25 take 1 tablet by mouth every week [...] sources) Magnesium 400 MG capsule Pt taking OTC([employer]) Active Magnesium 400 MG capsule magnesium 0 [...] e Melatonin 12 MG tablet Indications: from [employer] Take 1 tablet by mouth at bedtime [...] s-Minerals (BARIATRIC MULTIVITAMINS/IRON PO) Pt taking OTC ([employer]) Active Multiple Vitamin s-Minerals (BARIATRIC MULTIVITAMINS/IRON PO) Bariatric Multivitamins/Iron 0 Active Gsvucdugolnt-Pac-Zotv-Fa-Vit K (Bariatric Multivitamins) 45 mg iron- 800 mcg-120 mcg Capsule (2 sources) Start: 11-17-2022 take 1 capsule by mouth once daily Zufqjwsaelvk-Rmo-Zpmk-Fa-Vit K (Bariatric Multivitamins) 45 mg iron- 800 mcg-120 mcg Capsule Active 1 CAP PO Daily November 16, 2022 11:00pm Start: 11-17-2022 take 1 capsule by mo uth once daily Yhulbyphmcbs-Skw-Uiid-Fa-Vit K (Bariatri c Multivitamins) 45 mg iron- 800 mcg-120 mcg Capsule Active 1 CAP PO Daily November 17, 2022 12:00am nystatin 832961 unt/ml topical cream (20 sources) Polyene Antifungal Start: 03-07-2024 nystatin (M ycostatin) cream 03/07/2024 Active nystatin (Mycost atin) 931548 UNIT/GM powder Apply 1 application topically in [...] disorder] Onset: 07-17-19 Resolved : 03-16-20 Chronic Joint disorders and dislocations; trauma-related (2 sources) Acute tear of medial meniscus of right knee; Translations: [Other tear of medial meniscus, current injury, right knee, initial encounter] 11-18-2024 Episodic Mood disorders (20 sources) Bipolar disorder, [...] legs; Translations: [Restless legs syndrome] Onset: 05-18-19 11-18-2022 Chronic Other hereditary and degenerative nervous [...] Onset: 05-21-19 Episodic Other non-traumatic joint disorders (20 sources) Pain in right knee; Translations: [Pain in joint, lower leg] Onset: 11-21-19 Resolved : 03-16-20 24 03-25-2023 Episodic Other nutritional; endocrine; and metabolic disorders [...] of awareness] 04-12-2024 Episodic Residual codes; unclassified (12 sources) Disorientated; Translations: [Disorientation, unspecified] Onset: 10-14-1910-13-2024 [...] Other aftercare (1 source) 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 [facility] Comment on above: TESTS RESULT FLAG UN ITS REF RANGE LAB Clinician Provided Cytology Information Source.............Cervix;Endocervix No. of containers..01 ThinPrep Vial Age Algo ACOG Tona... FLAG LEGEND: L-Low Normal,H-High Normal,LL-Alert Low,HH-Alert High <-Panic Low,>-Panic High,A-Abnormal,AA-Critical Abnormal Performed at: 01 = [facility] [facility] [address] [place] [address] Farzana Hennessy MD, HPV APTIMA Negative Negative [facility] Comment on above: This nucleic acid am plification test detects fourteen high- risk HPV types (16,18,31,33,35,39,45,51,52,56,58,59,66,68) without differentiation. Performed at: =[facility] [employer] [address] [id number] [employer] Supervisor: Farzana Hennessy MD, Phone: [phone] Performed at: WB - [facility] [address], [place] [id number] Correctional Supply Supervisor: Farzana Hennessy MD, Phone: [phone] IGP, APTIMA HPV, RFX 16/18,45 Note . [facility] Comment on above: TESTS RESULT FLAG UN ITS REF RANGE LAB DIAGNOSIS: 02 NEGATIVE FOR INTRAEPITHELIAL LESION OR MALIGNANCY. CELLULAR CHANGES ASSOCIATED WITH ATROPHY ARE PRESENT. Specimen adequacy: 02 Satisfactory for evaluation. Endocervical component may not be distinguished in cases of atrophy. Performed by: 02 Adela Acosta [employer] (ASCP) . 02 Note: Note 02 The Pap smear is a screening test designed to aid in the detection of premalignant and malignant conditions of the uterine cervix. It is not a diagnostic procedure and should not be used as the sole means of detecting cervical cancer. Both false-positive and false-negative reports do occur. Test Methodology: Note 02 This liquid based ThinPrep(R) pap test was screened with the use of an image guided system. HPV Genotype Reflex Note 02 Criteria not met, HPV Genotype not performed. FLAG LEGEND: L-Low Normal,H-High Normal,LL-Alert Low,HH-Alert High <-Panic Low,>-Panic High,A-Abnormal,AA-Critical Abnormal Performed at: 02 [facility] [address] [place] [address] Farzana Hennessy MD, BRUSH-SPATULA CERVIX ENDOCERVIX [facility] MR KNEE RIGHT WO IV CONTRAST on 11-11-2024 MR KNEE RIGHT WO IV CONTRAST EXAMINATION/TECHNIQUE: MR KNEE RIGHT WO IV CONTRAST HISTORY: Right knee pain. Concern for medial meniscal tear. COMPARISON: MRI 03/06/2023. Radiographs 10/27/2024. Some limitations from artifact within the patella from prior hardware. Metal reduction sequences performed. RESULT: MENISCI: Medial Meniscus: Complex tearing mostly with horizontal component involving the posterior horn and body. Lateral Meniscus: Tearing at the posterior root. LIGAMENTS: ACL, PCL, MCL, and LCL complex intact. CARTILAGE: Moderate areas of high-grade partial-thickness and full-thickness chondral loss in the medial and lateral compartments. At least small areas of chondral loss involving the patella and trochlea, mostly obscured by artifact. Tricompartmental osteophytes. TENDONS: Distal quadriceps tendon and patellar tendon appear grossly intact within limits of artifact from patellar hardware. Popliteus intact. BONES AND MARROW: No evidence for recent fracture. No pathologic marrow infiltration. MUSCLES: Muscle bulk and signal intensity are normal. JOINT FLUID AND SYNOVIUM: Small joint effusion. No synovitis. No Strickland's cyst. OTHER: Subcutaneous edema. IMPRESSION: Medial and lateral meniscal tears. Osteoarthritis as discussed. ELECTRONICALLY SIGNED BY: Te Cardenas MD Normal Not Available Comment on above: Order Comment: Screw s and surgical clips in Right knee Gastric bypass surgery Dental implants Manny-lamectomy Lower back surgery XR Pelvis AP and Hip - bilat eral GE 2 Viewson 09-29-2024 [place] [id number] XRay Report Signed Patient: MICHELLE BE MR#: [id number] : 1960 Acct:[id number] Age/Sex: 63 / F ADM Date: 09/29/24 Loc: RAD Attending Dr: Elizabeth Culp NP Ordering Physician: Elizabeth Culp NP Date of Service: 09/29/24 Procedure(s): XR hip [facility] Accession Number(s): [id number] cc: Adelaida Carrion NP; Elizabeth Culp NP [address] [address] Patient Name: MICHELLE BE MRN: [facility]:[id number] date: 1960 Sex: F Assigned Patient Location: [facility] Current Patient Location: [facility] Accession/Order Number: [id number] Exam Date: 09/29/2024 11:20 Report Date: 09/29/2024 [...] Bernal M.D. 09/29/2024 11:23 AM Dictation Location: [place] [address] Electronically authenticated by: [id number] Y Date: 09/29/2024 11:23 Dictated By: Edith Bernal M.D. Signed By: 09/29/24 1126 DD/ 1123 TD/TT: International Logistics Coordinator: [facility] Radiology, Radiologist, MD - 09/29/2024 [place] [address] XRay Report Signed Patient: MICHELLE BE MR#: [id number] : 1960 Acct:[id number] Age/Sex: 63 / F ADM Date: 09/29/24 Loc: [facility] Attending Dr: Elizabeth Culp NP Ordering Physician: Elizabeth Culp NP Date of Service: 09/29/24 Procedure(s): XR hip BHUMI Accession Number(s): [id number] cc: Adelaida Carrion NP; Elizabeth Culp NP The [address] [address] Patient Name: MICHELLE BE MRN: [facility]:[id number] date: 1960 Sex: F Assigned Patient Location: [facility] Current Patient Location: [facility] Accession/Order Number: [id number] Exam Date: 09/29/2024 11:20 Report Date: 09/29/2024 [...] Bernal M.D. 09/29/2024 11:23 AM Dictation Location: [place] [address] Electronically authenticated by: [id number] Y Date: 09/29/2024 11:23 Dictated By: Edith Bernal M.D. Signed By: 09/29/24 1126 DD/ 1123 TD/TT: International Logistics Coordinator: [facility] Radiology Study observation (narrative) [facility] XR Pelvis AP and Hip - bilat eral GE 2 ViewsOrdered By: Radiologist Radiology on 09-29-2024 [facility] [employer] Work Phone: CT LUNG SCREENING LOW DOSEon 09-26-2024 [place] [address] CT Scan Report Signed Patient: MICHELLE BE MR#: [id number] : 1960 Acct:[id number] Age/Sex: 63 / F ADM Date: 09/26/24 Loc: MAMMO Attending Dr: Adelaida Carrion NP Ordering Physician: Adelaida Carrion NP Date of Service: 09/26/24 Procedure(s): CT lung screening low-dose Accession Number(s): [id number] cc: Adelaida Carrion NP [address] [place] [address] Patient Name: MICHELLE BE MRN: [facility]:[id number] date: 1960 Sex: F Assigned Patient Location: MAMMO Current Patient Location: RAD Accession/Order Number: [id number] Exam Date: 09/26/2024 16:58 Report Date: 09/26/2024 [...] Guadalupe M.D. 09/26/2024 5:02 PM Dictation Location: [place] [address] Electronically authenticated by: [id number] Y Date: 09/26/2024 17:02 Dictated By: Willi Guadalupe M.D. Signed By: 09/26/24 1704 DD/ 01 TD/TT: International Logistics Coordinator: [facility] Radiology, Radiologist, MD - 09/26/[address] [address] [address] Scan Report Signed Patient: MICHELLE BE MR#: [id number] : 1960 Acct:[id number] Age/Sex: 63 / F ADM Date: 09/26/24 Loc: MAMMO Attending Dr: Adelaida Carrion NP Ordering Physician: Adelaida Carrion NP Date of Service: 09/26/24 Procedure(s): CT lung screening low-dose Accession Number(s): [id number] cc: Adelaida Carrion NP [address] [address] Patient Name: MICHELLE BE MRN: [facility]:[id number] date: 1960 Sex: F Assigned Patient Location: [facility] Current Patient Location: RAD Accession/Order Number: [id number] Exam Date: 09/26/2024 16:58 Report Date: 09/26/2024 [...] Guadalupe M.D. 09/26/2024 5:02 PM Dictation Location: [place] [address] Electronically authenticated by: [id number] Y Date: 09/26/2024 17:02 Dictated By: Willi Guadalupe M.D. Signed By: 09/26/241703 DD/ 01 TD/TT: International Logistics Coordinator: [facility] Radiology Study observation (narrative) [facility] CT LUNG SCREENING LOW DOSEOr dered By: Radiologist Radiology on 09-26-2024 [facility] [employer] Work Phone: MM TOMOSYNTHESIS SCREENING B Ion 09-26-2024 [place] [address] Mammography Report Signed Patient: MICHELLE BE MR#: [id number] : 1960 Acct:[id number] Age/Sex: 63 / F ADM Date: 09/26/24 Loc: MAMMO Attending Dr: Adelaida Carrion NP Ordering Physician: Adelaida Carrion NP Results: Date of Service: 09/26/24 Follow Up: Procedure(s): MM tomosynthesis screening BI Accession Number(s): [id number] cc: Adelaida Carrion NP Patient Name: MICHELLE BE MR#: [id number] : 1960 Exam Date: 09/26/2024 Ordering Doctor: [...] Treatments None Family Cancers None LOCATION: [facility] BREAST COMPOSITION: There are scattered areas [...] M.D. Signed By: 09/26/241642 DD/ 41 TD/TT: International Logistics Coordinator: [facility] Radiology, Radiologist, MD - 09/26/2024 [place] [address] Mammography Report Signed Patient: MICHELLE BE MR#: [id number] : 1960 Acct:[id number] Age/Sex: 63 / F ADM Date: 09/26/24 Loc: MAMMO Attending Dr: Adelaida Carrion NP Ordering Physician: Adelaida Carrion NP Results: Date of Service: 09/26/24 Follow Up: Procedure(s): MM tomosynthesis screening BI Accession Number(s): [id number] cc: Adelaida Carrion NP Patient Name: MICHELLE BE MR#: [id number] : 1960 Exam Date: 09/26/2024 Ordering Doctor: [...] Treatments None Family Cancers None LOCATION: [facility] BREAST COMPOSITION: There are scattered areas [...] M.D. Signed By: 09/26/241642 DD/ 41 TD/TT: International Logistics Coordinator: [facility] Radiology Study observation (narrative) [facility] MM TOMOSYNTHESIS SCREENING B IOrdered By: Radiologist Radiology on 09-26-2024 [facility] Work Phone: XR SHOULDER RT MIN 2Von 09-05 [place] [id number] XRay Report Signed Patient: MICHELLE BE MR#: [id number] : 1960 Acct:[id number] Age/Sex: 63 / F ADM Date: 09/26/24 Loc: RAD Attending Dr: Elizabeth Culp NP Ordering Physician: Elizabeth Culp NP Date of Service: 09/26/24 Procedure(s): XR shoulder RT min 2V Accession Number(s): [id number] cc: Adelaida Carrion NP; Elizabeth Culp NP [address] [address] Patient Name: MICHELLE BE MRN: [facility]:[id number] date: 1960 Sex: F Assigned Patient Location: RAD Current Patient Location: RAD Accession/Order Number: [id number] Exam Date: 09/26/2024 13:34 Report Date: 09/26/2024 [...] Guadalupe M.D. 09/26/2024 1:35 PM Dictation Location: [place] [address] Electronically authenticated by: [id number] Y Date: 09/26/2024 13:35 Dictated By: Willi Guadalupe M.D. Signed By: 09/26/248 DD/ 34 TD/TT: International Logistics Coordinator: [facility] Radiology, Radiologist, MD - 09/26/2024 [place] [address] XRay Report Signed Patient: MICHELLE BE MR#: [id number] : 1960 Acct:[id number] Age/Sex: 63 / F ADM Date: 09/26/24 Loc: RAD Attending Dr: Elizabeth Culp NP Ordering Physician: Elizabeth Culp NP Date of Service: 09/26/24 Procedure(s): XR shoulder RT min 2V Accession Number(s): [id number] cc: Adelaida Carrion NP; Elizabeth Culp NP [facility] [place] [id number] Patient Name: MICHELLE BE MRN: [facility]:[id number] date: 1960 Sex: F Assigned Patient Location: [facility] Current Patient Location: [facility] Accession/Order Number: [id number] Exam Date: 09/26/2024 13:34 Report Date: 09/26/2024 [...] Guadalupe M.D. 09/26/2024 1:35 PM Dictation Location: [place] [address] Electronically authenticated by: [id number] Y Date: 09/26/2024 13:35 Dictated By: Willi Guadaluep M.D. Signed By: 09/26/24 1338 DD/ 1335 TD/TT: International Logistics Coordinator: [facility] Radiology Study observation (narrative) [facility] XR SHOULDER RT MIN 2VOrdered By: Radiologist Radiology on 09-26-2024 [facility] Work Phone: HbA1c (Bld) [Mass fraction]o n 08-16-2024 Interpretation and review of laboratory results Normal [facility] - Hematology and Cell countson 08-16-2024 HbA1c (Bld) [Mass fraction] 5.6 % [facility] Complete Blood Count Auto Di ffon 03-05-2024 Basophils (Bld) [#/Vol] 0.0 10*3/uL Normal 0.0-0.2 [facility] Comment on above: Result Comment: PERF ORMED BY: [place] [address] PATHOLOGIST [employer] SELLER ADIEL AGUSTIN M.D. Performed By: #### C BC, MG, CMP #### [place] [address] [place] Basophils/100 WBC (Bld) 0.5 % Normal . [facility] Comment on above: Performed By: #### C BC, MG, CMP #### [address] Eosinophils (Bld) [#/Vol] 0.2 10*3/uL Normal 0.0-0.45 [facility] Comment on above: Performed By: #### C BC MG, CMP #### [address] Eosinophils/100 WBC (Bld) 2.2 % Normal . [facility] Comment on above: Performed By: #### C BC, MG, CMP #### [address] Erythrocyte distribution width (RBC) [Ratio] 14.5 % Normal 11.9-15.3 [facility] Comment on above: Performed By: #### C BC MG, CMP #### [address] Hematocrit (Bld) [Volume fraction] 43.0 % Normal 34.0-46.4 [facility] Comment on above: Performed By: #### C BC, MG, CMP #### [place] [address] [place] Hemoglobin (Bld) [Mass/Vol] 14.3 g/dL Normal 11.8-15.4 [facility] Comment on above: Performed By: #### C BC, MG, CMP #### [place] [address] [place] Lymphocytes (Bld) [#/Vol] 1.8 10*3/uL Normal 1.00-4.8 [facility] Comment on above: Performed By: #### C BC, MG, CMP #### [address] Lymphocytes/100 WBC (Bld) 18.9 % Normal . [facility] Comment on above: Performed By: #### C BC, MG, CMP #### [facility] [address] MCH (RBC) [Entitic mass] 29.0 pg Normal 24.7-34.3 [facility] Comment on above: Performed By: #### C BC, MG, CMP #### [address] MCV (RBC) [Entitic vol] 87.0 fL Normal 80-100 [facility] Comment on above: Performed By: #### C BC, MG, CMP #### [address] Mean Corpuscular HGB Conc 33.4 g/dL Normal 32.0-35.0 [facility] Comment on above: Performed By: #### C BC, MG, CMP #### [address] Monocytes (Bld) [#/Vol] 0.5 10*3/uL Normal 0.0-0.8 [facility] Comment on above: Performed By: #### C BC, MG, CMP #### [address] Monocytes/100 WBC (Bld) 5.5 % Normal . [facility] Comment on above: Performed By: #### C BC, MG, CMP #### [address] Neutrophils (Bld) [#/Vol] 7.0 10*3/uL Normal 1.8-7.7 [facility] Comment on above: Performed By: #### C BC, MG, CMP #### [address] Neutrophils/100 WBC (Bld) 72.9 % Normal . [facility] Comment on above: Performed By: #### C BC, MG, CMP #### [address] NRBC% 0.0 /100{WBC} Normal 0-0.5 [facility] Comment on above: Performed By: #### C BC, MG, CMP #### [address] Platelet mean volume (Bld) [Entitic vol] 8.9 fL Normal 6.3-10.7 [facility] Comment on above: Performed By: #### C BC, MG, CMP #### [address] Platelets (Bld) [#/Vol] 289 10*3/uL Normal 150-450 [facility] Comment on above: Performed By: #### C BC, MG, CMP #### [address] RBC (Bld) [#/Vol] 4.94 10*6/uL Normal 3.60-5.00 [facility] Comment on above: Performed By: #### C BC, MG, CMP #### [address] WBC (Bld) [#/Vol] 9.6 10*3/uL Normal 3.8-11.6 The [facility] Comment on above: Performed By: #### C BC, MG, CMP #### [address] Comprehensive Metabolic Pane [place] 03-05-2024 Albumin [Mass/Vol] 4.4 g/dL Normal 3.5-5.7 [facility] Comment on above: Performed By: #### C BC, MG, CMP #### [address] Albumin/Globulin [Mass ratio] 1.3 {ratio} Normal [facility] Comment on above: Performed By: #### C BC, MG, CMP #### [address] ALP [Catalytic activity/Vol] 79 U/L Normal 34-104 [facility] Comment on above: Performed By: #### C BC, MG, CMP #### [facility] [address] ALT [Catalytic activity/Vol] 23 U/L Normal 7-52 [facility] Comment on above: Performed By: #### C BC, MG, CMP #### [facility] [address] Anion gap [Moles/Vol] 15.4 mmol/L High 6.0-15.0 Th [facility] Comment on above: Performed By: #### C BC, MG, CMP #### [facility] [address] AST [Catalytic activity/Vol] 36 U/L Normal 13-39 [facility] Comment on above: Performed By: #### C BC, MG, CMP #### [facility] [address] Bilirubin [Mass/Vol] 0.4 mg/dL Normal 0.3-1.0 [facility] Comment on above: Performed By: #### C BC, MG, CMP #### [facility] [address] [place] [address] [place] Calcium [Mass/Vol] 9.5 mg/dL Normal 8.6-10.3 [facility] Comment on above: Performed By: #### C BC, MG, CMP #### [facility] [address] [place] [address] [place] Chloride [Moles/Vol] 106 mmol/L Normal 98-107 [facility] Comment on above: Performed By: #### C BC, MG, CMP #### [facility] [address] [place] [id number] [place] CO2 [Moles/Vol] 23.1 mmol/L Normal 21.0-31.0 The [facility] Comment on above: Performed By: #### C BC, MG, CMP #### [facility] [address] [place] [id number] [place] Creatinine [Mass/Vol] 0.96 mg/dL Normal 0.60-1.20 [facility] Comment on above: Performed By: #### C BC, MG, CMP #### [address] Creatinine Clr Calc Pharmacy 84.51 Normal [facility] Comment on above: Performed By: #### C BC, MG, CMP #### [place] [address] [place] GFR/1.73 sq M.predicted MDRD (S/P/Bld) [Vol rate/Area] mL/min/{1.73_m2} Normal [facility] Comment on above: Performed By: #### C BC, MG, CMP #### [address] Globulin (S) [Mass/Vol] 3.3 g/dL Normal [facility] Comment on above: Performed By: #### C BC, MG, CMP #### [address] Glucose [Mass/Vol] 133 mg/dL High 70-100 The [facility] Comment on above: Result Comment: [place] Glucose Reference Range is dependent on time and content of last meal. Glucose of more than 200 mg/dL in a nonstressed, ambulatory subject supports the diagnosis of Diabetes Mellitus. ADA recommended reference range Performed By: #### C BC, MG, CMP #### [address] Potassium [Moles/Vol] 3.5 mmol/L Normal 3.5-5.1 [facility] Comment on above: Performed By: #### C BC, MG, CMP #### [address] Protein [Mass/Vol] 7.7 g/dL Normal 6.4-8.9 The [facility] Comment on above: Performed By: #### C BC, MG, CMP #### [address] Sodium [Moles/Vol] 141 mmol/L Normal 136-145 [facility] Comment on above: Performed By: #### C BC, MG, CMP #### [address] Urea nitrogen [Mass/Vol] 18 mg/dL Normal 7-25 [facility] Comment on above: Performed By: #### C BC, MG, CMP #### [address] Magnesiumon 03-05-2024 Magnesium [Mass/Vol] 2.0 mg/dL Normal 1.9-2.7 [facility] Comment on above: Result Comment: PERF ORMED BY: [place] [address] PATHOLOGIST [employer] SELLER ADIEL AGUSTIN M.D. Performed By: #### C BC, MG, CMP #### [address] Complete Blood Count Auto Di ffon 03-04-2024 Basophils (Bld) [#/Vol] 0.1 10*3/uL Normal 0.0-0.2 [facility] Comment on above: Result Comment: PERF ORMED BY: [place] [address] PATHOLOGIST [employer] SELLER ADIEL AGUSTIN M.D. Performed By: #### C MP, MG, CBC #### [address] Basophils/100 WBC (Bld) 0.6 % Normal . [facility] Comment on above: Performed By: #### C MP, MG, CBC #### [address] Eosinophils (Bld) [#/Vol] 0.2 10*3/uL Normal 0.0-0.45 [facility] Comment on above: Performed By: #### C MP, MG, CBC #### [place] [address] [place] Eosinophils/100 WBC (Bld) 1.9 % Normal . [facility] Comment on above: Performed By: #### C MP, MG, CBC #### [address] Erythrocyte distribution width (RBC) [Ratio] 14.6 % Normal 11.9-15.3 [facility] Comment on above: Performed By: #### C MP, MG, CBC #### [address] Hematocrit (Bld) [Volume fraction] 43.5 % Normal 34.0-46.4 [facility] Comment on above: Performed By: #### C MP, MG, CBC #### [address] Hemoglobin (Bld) [Mass/Vol] 14.4 g/dL Normal 11.8-15.4 [facility] Comment on above: Performed By: #### C MP, MG, CBC #### [address] Lymphocytes (Bld) [#/Vol] 1.8 10*3/uL Normal 1.00-4.8 [facility] Comment on above: Performed By: #### C MP, MG, CBC #### [address] Lymphocytes/100 WBC (Bld) 18.0 % Normal . [facility] Comment on above: Performed By: #### C MP, MG, CBC #### [address] MCH (RBC) [Entitic mass] 28.8 pg Normal 24.7-34.3 [facility] Comment on above: Performed By: #### C MP, MG, CBC #### [address] MCV (RBC) [Entitic vol] 87.0 fL Normal 80-100 [facility] Comment on above: Performed By: #### C MP, MG, CBC #### [address] Mean Corpuscular HGB Conc 33.2 g/dL Normal 32.0-35.0 [facility] Comment on above: Performed By: #### C MP, MG, CBC #### [facility] [address] [place] [address] [place] Monocytes (Bld) [#/Vol] 0.8 10*3/uL Normal 0.0-0.8 [facility] Comment on above: Performed By: #### C MP, MG, CBC #### [facility] [address] [place] [address] [place] Monocytes/100 WBC (Bld) 8.2 % Normal . [facility] Comment on above: Performed By: #### C MP, MG, CBC #### [facility] [address] [place] [address] [place] Neutrophils (Bld) [#/Vol] 7.3 10*3/uL Normal 1.8-7.7 [facility] Comment on above: Performed By: #### C MP, MG, CBC #### [facility] [address] [place] [address] [place] Neutrophils/100 WBC (Bld) 71.3 % Normal . [facility] Comment on above: Performed By: #### C MP, MG, CBC #### [facility] [address] [place] [address] [place] NRBC% 0.1 /100{WBC} Normal 0-0.5 [facility] Comment on above: Performed By: #### C MP, MG, CBC #### [facility] [address] [place] [address] [place] Platelet mean volume (Bld) [Entitic vol] 8.8 fL Normal 6.3-10.7 [facility] Comment on above: Performed By: #### C MP, MG, CBC #### [facility] [address] [place] [address] [place] Platelets (Bld) [#/Vol] 334 10*3/uL Normal 150-450 [facility] Comment on above: Performed By: #### C MP, MG, CBC #### [facility] [address] [place] [address] [place] RBC (Bld) [#/Vol] 5.01 10*6/uL High 3.60-5.00 [facility] Comment on above: Performed By: #### C MP, MG, CBC #### [address] WBC (Bld) [#/Vol] 10.3 10*3/uL Normal 3.8-11.6 [facility] Comment on above: Performed By: #### C MP, MG, CBC #### [address] Comprehensive Metabolic Pane [place] 03-04-2024 Albumin [Mass/Vol] 4.5 g/dL Normal 3.5-5.7 [facility] Comment on above: Performed By: #### C MP, MG, CBC #### [address] Albumin/Globulin [Mass ratio] 1.4 {ratio} Normal [facility] Comment on above: Performed By: #### C MP, MG, CBC #### [address] ALP [Catalytic activity/Vol] 79 U/L Normal 34-104 [facility] Comment on above: Performed By: #### C MP, MG, CBC #### [address] ALT [Catalytic activity/Vol] 19 U/L Normal 7-52 [facility] Comment on above: Performed By: #### C MP, MG, CBC #### [address] Anion gap [Moles/Vol] 11.4 mmol/L Normal 6.0-15.0 [facility] Comment on above: Performed By: #### C MP, MG, CBC #### [address] AST [Catalytic activity/Vol] 37 U/L Normal 13-39 [facility] Comment on above: Performed By: #### C MP, MG, CBC #### [address] Bilirubin [Mass/Vol] 0.5 mg/dL Normal 0.3-1.0 [facility] Comment on above: Performed By: #### C MP, MG, CBC #### [facility] [address] Calcium [Mass/Vol] 9.6 mg/dL Normal 8.6-10.3 [facility] Comment on above: Performed By: #### C MP, MG, CBC #### [facility] [address] [place] [address] [place] Chloride [Moles/Vol] 107 mmol/L Normal 98-107 [facility] Comment on above: Performed By: #### C MP, MG, CBC #### [facility] [address] CO2 [Moles/Vol] 27.4 mmol/L Normal 21.0-31.0 The [facility] Comment on above: Performed By: #### C MP, MG, CBC #### [place] [address] [place] Creatinine [Mass/Vol] 0.91 mg/dL Normal 0.60-1.20 [facility] Comment on above: Performed By: #### C MP, MG, CBC #### [facility] [address] [place] [address] [place] Creatinine Clr Calc Pharmacy 90.12 Normal [facility] Comment on above: Performed By: #### C MP, MG, CBC #### [facility] [address] [place] [address] [place] GFR/1.73 sq M.predicted MDRD (S/P/Bld) [Vol rate/Area] mL/min/{1.73_m2} Normal [facility] Comment on above: Performed By: #### C MP, MG, CBC #### [facility] [address] [place] [address] [place] Globulin (S) [Mass/Vol] 3.2 g/dL Normal [facility] Comment on above: Performed By: #### C MP, MG, CBC #### [facility] [address] [place] [address] [place] Glucose [Mass/Vol] 100 mg/dL Normal 70-100 [facility] Comment on above: Result Comment: [place] Glucose Reference Range is dependent on time and content of last meal. Glucose of more than 200 mg/dL in a nonstressed, ambulatory subject supports the diagnosis of Diabetes Mellitus. ADA recommended reference range Performed By: #### C MP, MG, CBC #### [facility] [address] Potassium [Moles/Vol] 3.8 mmol/L Normal 3.5-5.1 [facility] Comment on above: Performed By: #### C MP, MG, CBC #### [facility] [address] [place] [address] [facility] Protein [Mass/Vol] 7.7 g/dL Normal 6.4-8.9 [facility] Comment on above: Performed By: #### C MP, MG, CBC #### [facility] [address] [place] [address] [place] Sodium [Moles/Vol] 142 mmol/L Normal 136-145 [facility] Comment on above: Performed By: #### C MP, MG, CBC #### [facility] [address] [place] [id number] [place] Urea nitrogen [Mass/Vol] 15 mg/dL Normal 7-25 [facility] Comment on above: Performed By: #### C MP, MG, CBC #### [place] [id number] [facility] MR head/brain wo/w conon MR head/brain wo/w con [facility] [place] [address] MRI Report Signed Patient: Michelle Be MR#: [id number] : 1960 Acct:[id number] Age/Sex: 63 / F ADM Date: 03/03/24 Loc: Room: [address] [place] [address] Type: ADM IN Attending Dr: Delta Gan [...] Willi Guadalupe M.D.03/04/2024 2:32 PM Dictation Location: [place] [address] Transcribed By: [facility] 03/04/24 1432 Dictated By: Willi Guadalupe II, MD 03/04/24 1424 Signed By: 03/04/24 1432 Normal [facility] Magnesiumon 03-04-2024 Magnesium [Mass/Vol] 2.0 mg/dL Normal 1.9-2.7 [facility] Comment on above: Result Comment: PERF ORMED BY: [place] [address] PATHOLOGIST [employer] T[employer] SELLER ADIEL AGUSTIN M.D. Performed By: #### C MP, MG, CBC #### [address] Complete Blood Count Auto Di ffon 03-03-2024 Basophils (Bld) [#/Vol] 0.1 10*3/uL Normal 0.0-0.2 [facility] Comment on above: Order Comment: RIN T O COME TRY,KAH,[id number] Result Comment: PERF ORMED BY: [place] [address] PATHOLOGIST [employer] T[employer] SELLER ADIEL AGUSTIN M.D. Performed By: #### C BC, CMP #### [place] [address] [place] Basophils/100 WBC (Bld) 0.6 % Normal . [facility] Comment on above: Order Comment: RIN T O COME TRY,KAH,[id number] Performed By: #### C BC, CMP #### [place] [address] [place] Eosinophils (Bld) [#/Vol] 0.1 10*3/uL Normal 0.0-0.45 [facility] Comment on above: Order Comment: RIN T O COME TRY,KAH,[id number] Performed By: #### C BC, CMP #### [place] [address] [place] Eosinophils/100 WBC (Bld) 1.0 % Normal . [facility] Comment on above: Order Comment: RIN T O COME TRY,KAH,[id number] Performed By: #### C BC, CMP #### [address] Erythrocyte distribution width (RBC) [Ratio] 14.6 % Normal 11.9-15.3 [facility] Comment on above: Order Comment: RIN T O COME TRY,KAH,[id number] Performed By: #### C BC, CMP #### [place] [address] [place] Hematocrit (Bld) [Volume fraction] 42.9 % Normal 34.0-46.4 [facility] Comment on above: Order Comment: RIN T O COME TRY,KAH,[id number] Performed By: #### C BC, CMP #### [place] [address] [place] Hemoglobin (Bld) [Mass/Vol] 14.5 g/dL Normal 11.8-15.4 [facility] Comment on above: Order Comment: RIN T O COME TRY,KAH,[id number] Performed By: #### C BC, CMP #### [address] Lymphocytes (Bld) [#/Vol] 1.7 10*3/uL Normal 1.00-4.8 [facility] Comment on above: Order Comment: RIN T O COME TRY,KAH,[id number] Performed By: #### C BC, CMP #### [address] Lymphocytes/100 WBC (Bld) 15.7 % Normal . [facility] Comment on above: Order Comment: RIN T O COME TRY,KAH,[id number] Performed By: #### C BC, CMP #### [address] MCH (RBC) [Entitic mass] 29.1 pg Normal 24.7-34.3 [facility] Comment on above: Order Comment: RIN T O COME TRY,KAH,[id number] Performed By: #### C BC, CMP #### [address] MCV (RBC) [Entitic vol] 85.9 fL Normal 80-100 [facility] Comment on above: Order Comment: RIN T O COME TRY,KAH,1607 Performed By: #### C BC, CMP #### [address] Mean Corpuscular HGB Conc 33.8 g/dL Normal 32.0-35.0 [facility] Comment on above: Order Comment: RIN T O COME TRY,KAH,[id number] Performed By: #### C BC, CMP #### [address] Monocytes (Bld) [#/Vol] 0.9 10*3/uL High 0.0-0.8 [facility] Comment on above: Order Comment: RIN T O COME TRY,KAH,1607 Performed By: #### C BC, CMP #### [facility] [address] [place] [address] [place] Monocytes/100 WBC (Bld) 8.4 % Normal . [facility] Comment on above: Order Comment: RIN T O COME TRY,KAH,[id number] Performed By: #### C BC, CMP #### [facility] [address] [place] [address] [place] Neutrophils (Bld) [#/Vol] 8.0 10*3/uL High 1.8-7.7 [facility] Comment on above: Order Comment: RIN T O COME TRY,KAH,1607 Performed By: #### C BC, CMP #### [facility] [address] Neutrophils/100 WBC (Bld) 74.3 % Normal . [facility] Comment on above: Order Comment: RIN T O COME TRY,KAH,1607 Performed By: #### C BC, CMP #### [facility] [address] [place] [address] [place] NRBC% 0.1 /100{WBC} Normal 0-0.5 [facility] Comment on above: Order Comment: RIN T O COME TRY,KAH,[id number] Performed By: #### C BC, CMP #### [address] Platelet mean volume (Bld) [Entitic vol] 8.9 fL Normal 6.3-10.7 [facility] Comment on above: Order Comment: RIN T O COME TRY,KAH,[id number] Performed By: #### C BC, CMP #### [facility] [address] [place] [address] [place] Platelets (Bld) [#/Vol] 291 10*3/uL Normal 150-450 [facility] Comment on above: Order Comment: RIN T O COME TRY,KAH,1607 Performed By: #### C BC, CMP #### [facility] [address] [place] [address] [place] RBC (Bld) [#/Vol] 4.99 10*6/uL Normal 3.60-5.00 [facility] Comment on above: Order Comment: RIN T O COME TRY,KAH,[id number] Performed By: #### C BC, CMP #### [facility] [address] WBC (Bld) [#/Vol] 10.7 10*3/uL Normal 3.8-11.6 [facility] Comment on above: Order Comment: RIN T O COME TRY,KAH,1607 Performed By: #### C BC, CMP #### [facility] [address] Comprehensive Metabolic Pane [place] 03-03-2024 Albumin [Mass/Vol] 4.6 g/dL Normal 3.5-5.7 The [facility] Comment on above: Order Comment: RIN T O COME TRY,KAH,1607 Performed By: #### C BC, CMP #### [address] Albumin/Globulin [Mass ratio] 1.4 {ratio} Normal [facility] Comment on above: Order Comment: RIN T O COME TRY,KAH,1607 Performed By: #### C BC, CMP #### [address] ALP [Catalytic activity/Vol] 80 U/L Normal 34-104 [facility] Comment on above: Order Comment: RIN T O COME TRY,KAH,1607 Performed By: #### C BC, CMP #### [address] ALT [Catalytic activity/Vol] 16 U/L Normal 7-52 [facility] Comment on above: Order Comment: RIN T O COME TRY,KAH,1607 Performed By: #### C BC, CMP #### [address] Anion gap [Moles/Vol] 13.6 mmol/L Normal 6.0-15.0 Th [facility] Comment on above: Order Comment: RIN T O COME TRY,KAH,1607 Performed By: #### C BC, CMP #### [address] AST [Catalytic activity/Vol] 35 U/L Normal 13-39 [facility] Comment on above: Order Comment: RIN T O COME TRY,KAH,1607 Performed By: #### C BC, CMP #### [facility] [address] Bilirubin [Mass/Vol] 0.3 mg/dL Normal 0.3-1.0 [facility] Comment on above: Order Comment: RIN T O COME TRY,KAH,1607 Performed By: #### C BC, CMP #### [facility] [address] Calcium [Mass/Vol] 9.3 mg/dL Normal 8.6-10.3 [facility] Comment on above: Order Comment: RIN T O COME TRY,KAH,160 Performed By: #### C BC, CMP #### [address] Chloride [Moles/Vol] 109 mmol/L High 98-107 [facility] Comment on above: Order Comment: RIN T O COME TRY,KAH,160 Performed By: #### C BC, CMP #### [place] [address] [place] CO2 [Moles/Vol] 22.4 mmol/L Normal 21.0-31.0 The [facility] Comment on above: Order Comment: RIN T O COME TRY,KAH,1607 Performed By: #### C BC, CMP #### [facility] [address] [place], [place] [id number] [place] Creatinine [Mass/Vol] 0.93 mg/dL Normal 0.60-1.20 [facility] Comment on above: Order Comment: RIN T O COME TRY,KAH,1607 Performed By: #### C BC, CMP #### [facility] [address] [place] [address] [place] Creatinine Clr Calc Pharmacy 87.94 Normal [facility] Comment on above: Order Comment: RIN T O COME TRY,KAH,160 Result Comment: PERF ORMED BY: [place] [address] PATHOLOGIST [employer] SELLER ADIEL AGUSTIN M.D. Performed By: #### C BC, CMP #### [facility] [address] [place] [address] [place] GFR/1.73 sq M.predicted MDRD (S/P/Bld) [Vol rate/Area] mL/min/{1.73_m2} Normal [facility] Comment on above: Order Comment: REY T O COME CHIQUITA,WEN,1606 Performed By: #### C BC, CMP #### [facility] [address] [place] [id number] [place] Globulin (S) [Mass/Vol] 3.2 g/dL Normal [facility] Comment on above: Order Comment: RIN T O COME TRY,KAH,1606 Performed By: #### C BC, CMP #### [address] Glucose [Mass/Vol] 105 mg/dL High 70-100 [facility] Comment on above: Order Comment: RIN T O COME TRY,KAH,1606 Result Comment: [facility] Glucose Reference Range is dependent on time and content of last meal. Glucose of more than 200 mg/dL in a nonstressed, ambulatory subject supports the diagnosis of Diabetes Mellitus. ADA recommended reference range Performed By: #### C BC, CMP #### [address] Potassium [Moles/Vol] 4.0 mmol/L Normal 3.5-5.1 [facility] Comment on above: Order Comment: RIN T O COME CHIQUITA,WEN,1606 Performed By: #### C BC, CMP #### [facility] [address] [place] [address] [place] Protein [Mass/Vol] 7.8 g/dL Normal 6.4-8.9 [facility] Comment on above: Order Comment: RIN T O COME TRY,KAH,1606 Performed By: #### C BC, CMP #### [place] [id number] [facility] Sodium [Moles/Vol] 141 mmol/L Normal 136-145 [facility] Comment on above: Order Comment: RIN T O COME TRY,WEN,1607 Performed By: #### C BC, CMP #### [facility] [address] Urea nitrogen [Mass/Vol] 15 mg/dL Normal 7-25 [facility] Comment on above: Order Comment: REY PORRAS,WEN,1607 Performed By: #### C BC, CMP #### [facility] [address] [place] [id number] [facility] IGP,APTIMA HPV,AGE GDLNon AGE GDLN ACOG TESTING Note . [facility] Comment on above: TESTS RESULT FLAG UN ITS REF RANGE LAB Clinician Provided Cytology Information Source.............Cervix;Endocervix No. of containers..01 ThinPrep Vial Age Algo ACOG Tona... 30-65 01 FLAG LEGEND: L-Low Normal,H-High Normal,LL-Alert Low,HH-Alert High <-Panic Low,>-Panic High,A-Abnormal,AA-Critical Abnormal Performed at: 01 =G [address] [address] Farzana Hennessy MD, HPV APTIMA Negative Negative [facility] Comment on above: This nucleic acid am plification test detects fourteen high- risk HPV types (16,18,31,33,35,39,45,51,52,56,58,59,66,68) without differentiation. Performed at: =G - [facility] [address], [place] [id number] [employer] Supervisor: Farzana Hennessy MD, Phone: [phone] Performed at: [facility] [address] [place], [place] [id number] [employer] Supervisor: Scott Sandoval MD, Phone: [phone] IGP, APTIMA HPV, RFX 16/18,45 Note . [facility] Comment on above: TESTS RESULT FLAG UN ITS REF RANGE LAB DIAGNOSIS: 02 NEGATIVE FOR INTRAEPITHELIAL LESION OR MALIGNANCY. Specimen adequacy: 02 Satisfactory for evaluation. Endocervical and/or squamous metaplastic cells (endocervical component) are present. Performed by: Lg Bustamante, Separations Scientist (ASC) . 02 Note: Note 03 The Pap [...] High,A-Abnormal,AA-Critical Abnormal Performed at: 02 K[facility]YT [facility] [place] [address] [address] [place] [address] Scott Sandoval MD, 03 WB [facility] [address] [address] Farzana Hennessy MD, BROOM-ALONE CERVIX ENDOCERVIX [facility] Urinalysis macro (dipstick) panel (U)on 01-28-2024 Bilirubin, UA Negative Negative - 4(70) +++ mg/dL [facility] Blood, UA Negative Negative - 50 Kranthi/mcL [facility] Clarity, UA Clear [facility] Color, UA Dark Tania [facility] Glucose, UA Negative Negative - 2000(110) ++++ mg/dL [facility] Interpretation and review of laboratory results Abnormal [facility] Ketones, UA Negative Negative - 160(16) ++++ mg/dL [facility] Leukocytes, UA Trace Negative - 500+++ Radha/mcL [facility] Nitrite, UA Negative Negative - Positive [facility] pH, UA 5.5 5 - 9 [facility] Protein, UA Negative Negative - 2000(20) ++++ mg/dL [facility] Spec Grav, UA 1.025 1 - 1.03 [facility] Urobilinogen, UA 0.2 0.2 - 12 mg/dL [facility] MHPT CULT,URINEon 01-23-2024 Interpretation and review of laboratory results Abnormal [facility] MHPT CULT,URINE Specimen Description .CLEAN CATCH URINE [facility]PT CULT,URINE Culture ESCHERICHIA COLI >100,000 CFU/ML Abnormal [facility] MHPT CULT,URINE STREPTOCOCCI, BETA HEMOLYTIC GROUP B 10 to 50,000 CFU/ML Abnormal [facility]PT CULT,URINE Report Status FINAL 01/23/2024 [facility] MHPT CULT,URINE SUSCEPTIBILITY [facility]PT CULT,URINE Organism ESCHERICHIA COLI [facility]PT CULT,URINE Method CROW [facility]PT CULT,URINE Ampicillin 16 INTERMEDIATE Intermediate [facility]PT CULT,URINE Cefazolin <=4 SUSCEPTIBLE Susceptible [facility] MHPT CULT,URINE Cefazolin sensitivit y results can be used to predict the effectiveness of oral Susceptible [facility]PT CULT,URINE cephalosporins (eg. Cephalexin) in uncomplicated Urinary Tract Infections due Susceptible [facility]PT CULT,URINE to E. coli, K. pneumoniae, and P. mirabilis Susceptible [facility]PT CULT,URINE Ceftriaxone <=0.25 SUSCEPTIBLE Susceptible [facility]PT CULT,URINE Negative Susceptible [facility]PT CULT,URINE Gentamicin <=1 SUSCEPTIBLE Susceptible [facility]PT CULT,URINE Levofloxacin <=0.12 SUSCEPTIBLE Susceptible [facility]PT CULT,URINE Nitrofurantoin <=16 SUSCEPTIBLE Susceptible [facility]PT CULT,URINE Piperacillin/Tazobac ta m <=4 SUSCEPTIBLE Susceptible [facility]PT CULT,URINE Tobramycin <=1 SUSCEPTIBLE Susceptible [facility]PT CULT,URINE Trimethoprim/Sulfa <=20 SUSCEPTIBLE Susceptible [facility] Original Ordering Provider: [facility] BASIC METABOLIC PANELon 01-05-2024 Anion gap [Moles/Vol] 11.1 mmol/L [facility] Calcium [Mass/Vol] 9.2 mg/dL 8.5 - [...] [facility] TBH EGFR-NON AF NEPALESE 51 Low 60 - PINF [facility] Urea nitrogen [Mass/Vol] 17.0 mg/dL 7.0 - 18.0 mg/dL [facility] Urea nitrogen/Creatinine [Mass ratio] 15.7 mg/mg [facility] Amphetamine Screen Ql (U)Ord ered By: Jace Graham on 03-23-2023 Amphetamines Ql (U) Negative Negative [facility] Barbiturates [Presence] in U rine by Screen methodOrdered By: Jace Graham on 03-23-2023 Barbiturates Screen Ql (U) Negative Negative [facility] Benzodiazepines Screen Ql (U )Ordered By: Jace Graham on 03-23-2023 Benzodiazepines Ql (U) Negative Negative [facility] Benzoylecgonine [Presence] i n Urine by Screen methodOrdered By: Jace Graham on 03-23-2023 Benzoylecgonine Screen Ql (U) Negative Negative [facility] Cannabinoids [Presence] in U rine by Screen methodOrdered By: Jace Graham on 03-23-2023 Cannabinoids Screen Ql (U) Negative Negative [facility] Comment on above: These are unconfirme d [...] on 03-23-2023 Phencyclidine Ql (U) Negative Negative [facility] Cholesterol [Mass/volume] in Serum or PlasmaOrdered By: Eduardo Monk on 11-18-2022 Cholesterol [Mass/Vol] 159 mg/dL 140-200 [facility] Comment on above: Chol less than 200 m g/dl low riskChol 201-239 mg/dl borderline riskChol 240 mg/dl and greater high risk Cholesterol in LDL Calc [Mas s/Vol]Ordered By: Eduardo Monk on 11-18-2022 Cholesterol in LDL [Mass/Vol] 84 mg/dL 0-100 [facility] Comment on above: LDL ATP III CLASSIFI CATIONLDL less than 100 mg/dL OptimalLDL 100-129 mg/dL Near or above optimalLDL 130-159 mg/dL Borderline highLDL 160-189 mg/dL HighLDL greater than 189 mg/dL Very high Cholesterol in VLDL Calc [Ma ss/Vol]Ordered By: Eduardo Monk on 11-18-2022 Cholesterol in VLDL [Mass/Vol] 28 mg/dL [facility] Serum or plasma high density lipoprotein (HDL) cholesterol measurementOrdered By: Eduardo Monk on 11-18-2022 Cholesterol in HDL [Mass/Vol] 46 mg/dL 23-92 [facility] Comment on above: HDL CHOL ATP-III CLA SSIFICATION Cardiovascular RiskHDL > or equal to 60 mg/dL LOWHDL < 40 mg/dL HIGH Serum or plasma total choles terol/high density lipoprotein (HDL) cholesterol mass ratOrdered By: Eduardo Monk on 11-18-2022 Cholesterol.total/Chol esterol in HDL [Mass ratio] 3.5 {ratio} <5.0 [facility] Thyrotropin [Units/volume] i n Serum or PlasmaOrdered By: Eduardo Monk on 11-18-2022 TSH Qn 2.13 m[IU]/L 0.45-5.33 [facility] Triglyceride [Mass/volume] i n Serum or PlasmaOrdered By: Eduardo Monk on 11-18-2022 Triglyceride [Mass/Vol] 144 mg/dL 0-149 [facility] Comment on above: TRIG ATP III CLASSIF ICATIONTRIG less than 150 mg/dL NormalTRIG 150-199 mg/dL Borderline highTRIG 200-500 mg/dL High TRIG greater than 500 mg/dL Very highStandard traceable to the Center for Disease Conrtrol and Prevention (CDC) test method. Vitamin D+Metabolites [Mass/ volume] in Serum or PlasmaOrdered By: Eduardo Monk on 11-18-2022 Vitamin D+Metabolites [Mass/Vol] 50.4 ng/mL 30-100 [facility] Comment on above: VITAMIN D STATUS 25( [place])VITAMIN D RANGE (ng/mL) Deficient <20 Insufficient 20 to <30Sufficient 30 to 100Reference: Bin COLLAZO,Lakshmi CABRERA, Cristian SMART, et al. Evaluation,treatment, and prevention of vitamin D deficiency; an Endocrine Society clinical practice guideline. JCEM. 2010; 96(7):1911-30. CBC AUTO DIFFon 07-25-2022 BASO # 0.1 103/ul Normal 0.0-0.1 [facility] Comment on above: Performed By: #### A 1C #### [facility] [address] [place] [address] [address] Bebeto Alvarado Basophils/100 WBC (Bld) 0.6 % Normal 0.2-2.0 [facility] Comment on above: Performed By: #### A 1C #### [facility] [address] [place] [address] [address] Bebeto Alvarado EO # 0.2 103/ul Normal 0.0-0.7 [facility] Comment on above: Performed By: #### A 1C #### [facility] [address] [place] [address] Dr. Bebeto Alvarado Eosinophils/100 WBC (Bld) 2.3 % Normal 0.9-7.0 [facility] Comment on above: Performed By: #### A 1C #### [facility] [address] [place] [address] Dr. Bebeto Alvarado Erythrocyte distribution width (RBC) [Ratio] 13.8 % Normal 11.0-15.0 [facility] Comment on above: Performed By: #### A 1C #### [facility] [address] [place] [address] Dr. Bebeto Alvarado Hematocrit (Bld) [Volume fraction] 41.2 % Normal 36.0-48.0 [facility] Comment on above: Performed By: #### A 1C #### [facility] [address] [place] [address] Dr. Bebeto Alvarado Hemoglobin (Bld) [Mass/Vol] 13.2 g/dL Normal 12.0-16.0 [facility] Comment on above: Performed By: #### A 1C #### [facility] [address] [place] [address] Dr. Bebeto Alvarado IG # 0.03 10e3/ul Normal 0.00-0.03 [facility] Comment on above: Performed By: #### A 1C #### [facility] [address] [place] [address] Dr. Bebeto Alvarado IG % 0.4 % Normal 0.0-0.5 [facility] Comment on above: Performed By: #### A 1C #### [facility] [address] [place] [address] Dr. Bebeto Alvarado LYMPH # 2.1 103/ul Normal 1.2-3.8 [facility] Comment on above: Performed By: #### A 1C #### [facility] [address] [place] [address] Dr. Bebeto Alvarado Lymphocytes/100 WBC (Bld) 25.9 % Normal 20.5-60.0 [facility] Comment on above: Performed By: #### A 1C #### [facility] [address] [place] [address] Dr. Bebeto Alvarado MANUAL DIFF REQ NO Normal [facility] Comment on above: Performed By: #### A 1C #### [facility] [address] [place] [address] Dr. Bebeto Alvarado MCH (RBC) [Entitic mass] 28.0 pg Normal 26.7-34.0 [facility] Comment on above: Performed By: #### A 1C #### [facility] [address] [place] [address] Dr. Bebeto Alvarado MCHC (RBC) [Mass/Vol] 32.0 g/dL Normal 29.9-35.2 [facility] Comment on above: Performed By: #### A 1C #### [facility] [address] [place] [address] Dr. Bbeeto Alvarado MCV (RBC) [Entitic vol] 87.5 fL Normal 81.0-99.0 [facility] Comment on above: Performed By: #### A 1C #### [facility] [address] [place] [address] Dr. Bebeto Alvarado MONO # 0.5 103/ul Normal 0.3-0.8 [facility] Comment on above: Performed By: #### A 1C #### [facility] [address] [place] [address] [address] Bebeto Alvarado Monocytes/100 WBC (Bld) 6.6 % Normal 1.7-12.0 [facility] Comment on above: Performed By: #### A 1C #### [facility] [address] [place] [address] Dr. Bebeto Alvarado NEUT # 5.1 103/ul Normal 1.4-6.5 [facility] Comment on above: Performed By: #### A 1C #### [facility] [address] [place] [address] Dr. Bebeto Alvarado Neutrophils/100 WBC (Bld) 64.2 % Normal 43.0-75.0 [facility] Comment on above: Performed By: #### A 1C #### [facility] [address] [place] [address] Dr. Bebeto Alvarado Platelet mean volume (Bld) [Entitic vol] 11.2 fL Normal 9.5-13.5 [facility] Comment on above: Performed By: #### A 1C #### [facility] [address] [place] [address] Dr. Bebeto Alvarado PLT 252 103/ul Normal 150-450 [facility] Comment on above: Performed By: #### A 1C #### [facility] [address] [place] [address] Dr. Bebeto Alvarado RBC 4.71 106/ul Normal 4.20-5.40 [facility] Comment on above: Performed By: #### A 1C #### [facility] [address] [place] [address] Dr. Bebeto Alvarado WBC 8.0 103/ul Normal 4.0-11.0 [facility] Comment on above: Performed By: #### A 1C #### [facility] [address] [place] [address] Dr. Bebeto Alvarado GLYCOHEMOGLOBIN A1Con 2022 ADA RECOMMENDATION SEE BELOW Normal [facility] Comment on above: Result Comment: ADA RECOMMENDED LIMIT 4.0 - 6.0 ADA THERAPEUTIC TARGET < 7.0 ACTION SUGGESTED > 7.0 Performed By: #### A 1C #### [facility] [address] [place] [address] [address] Bebeto Alvarado Glucose [Mass/Vol] 114 mg/dL Normal [facility] Comment on above: Performed By: #### A 1C #### [facility] [address] [place] [address] Dr. Bebeto Alvarado HbA1c (Bld) [Mass fraction] 5.6 % Normal 4.5-6.2 [facility] Comment on above: Performed By: #### A 1C #### [facility] [address] [place] [address] Dr. Bebeto Alvarado IRONon 07-25-2022 Iron [Mass/Vol] 60.0 ug/dL Normal 50.0-170.0 [facility] Comment on above: Performed By: #### V ITB12, IRON #### [facility] [address] [place] [address] Dr. Bebeto Alvarado LIPID PROFILEon 07-25-2022 CHOL-HDL RATIO NORM SEE BELOW Normal [facility] Comment on above: Result Comment: 3.3 - 4.4 LOW RISK 4.4 - 7.1 AVERAGE RISK 7.1 - 11.0 MODERATE RISK >11.0 HIGH RISK Performed By: #### C MP, LIPID #### [facility] [address] [place] [address] Dr. Bebeto Alvarado Cholesterol [Mass/Vol] 144 mg/dL Normal <=200 [facility] Comment on above: Performed By: #### C MP, LIPID #### [facility] [address] [place] [address] Dr. Bebeto Alvarado Cholesterol in HDL [Mass/Vol] 39 mg/dL Critically low 40-60 [facility] Comment on above: Performed By: #### C MP, LIPID #### [facility] [address] [place] [address] Dr. Bebeto Alvarado Cholesterol in LDL [Mass/Vol] 74.6 mg/dL Normal [facility] Comment on above: Performed By: #### C MP, LIPID #### [facility] [address] [address] [address] Bebeto Alvarado Cholesterol.total/Chol esterol in HDL [Mass ratio] 3.7 {ratio} Normal [facility] Comment on above: Performed By: #### C MP, LIPID #### [facility] [address] [address] [address] Bebeto Alvarado HDL NORMAL > or = 60 mg/dl - LO W CARDIOVASCULAR RISK <40 mg/dl - HIGH CARDIOVASCULAR RISK Normal [facility] Comment on above: Performed By: #### C MP, LIPID #### [facility] [address] [address] [address] Bebeto Alvarado LDL CALC NORMAL SEE BELOW Normal [facility] Comment on above: Result Comment: <100 mg/dl OPTIMAL 100 - 129 mg/dl NEAR OR ABOVE OPTIMAL 130 - 159 mg/dl BORDERLINE HIGH 160 - 189 mg/dl HIGH >190 mg/dl VERY HIGH Performed By: #### C MP, LIPID #### [facility] [address] [address] [address] Bebeto Alvarado Triglyceride [Mass/Vol] 152 mg/dL Critically high <=150 [facility] Comment on above: Performed By: #### C MP, LIPID #### [facility] [address] [place] [address] Dr. Bebeto Alvarado VLDL CALC 30.4 mg/dL Normal [facility] Comment on above: Performed By: #### C MP, LIPID #### [facility] [address] [address] [address] Bebeto Alvarado PROF 14(COMP METB)on 023 Albumin [Mass/Vol] 3.7 g/dL Normal 3.4-5.0 [facility] Comment on above: Performed By: #### C MP, LIPID #### [facility] [address] [place] [address] Dr. Bebeto Alvarado Albumin/Globulin [Mass ratio] 0.9 {ratio} Normal [facility] Comment on above: Performed By: #### C MP, LIPID #### [facility] [address] [place] [address] Dr. Bebeto Alvarado ALP [Catalytic activity/Vol] 90 U/L Normal 46-116 [facility] Comment on above: Performed By: #### C MP, LIPID #### [facility] [address] [place] [address] Dr. Bebeto Alvarado ALT [Catalytic activity/Vol] 38 U/L Normal 14-59 [facility] Comment on above: Performed By: #### C MP, LIPID #### [facility] [address] [place] [address] Dr. Bebeto Alvarado Anion gap [Moles/Vol] 12.1 mmol/L Normal [facility] Comment on above: Performed By: #### C MP, LIPID #### [facility] [address] [place] [place] [address] Dr. Bebeto Alvarado AST [Catalytic activity/Vol] 26 U/L Normal 15-37 [facility] Comment on above: Performed By: #### C MP, LIPID #### [facility] [address] [place] [address] Dr. Bebeto Alvarado Bilirubin [Mass/Vol] 0.3 mg/dL Normal 0.2-1.0 [facility] Comment on above: Performed By: #### C MP, LIPID #### [facility] [address] [place] [address] Dr. Bebeto Alvarado Calcium [Mass/Vol] 9.3 mg/dL Normal 8.5-10.1 [facility] Comment on above: Performed By: #### C MP, LIPID #### [facility] [address] [place] [address] Dr. Bebeto Alvarado Chloride [Moles/Vol] 107 mmol/L Normal 98-107 [facility] Comment on above: Performed By: #### C MP, LIPID #### [facility] [address] [place] [address] Dr. Bebeto Alvarado CO2 [Moles/Vol] 27.9 mmol/L Normal 21.0-32.0 [facility] Comment on above: Performed By: #### C MP, LIPID #### [facility] [address] [place] [address] Dr. Bebeto Alvarado Creatinine [Mass/Vol] 0.95 mg/dL Normal 0.55-1.02 [facility] Comment on above: Performed By: #### C MP, LIPID #### [facility] [address] [place] [address] Dr. Bebeto Alvarado EGFR-AF NEPALESE >60 Normal >=60 [facility] Comment on above: Performed By: #### C MP, LIPID #### [facility] [address] [address] [address] Bebeto Alvarado EGFR-NON AF NEPALESE 60 mL/min/1.73m2 Normal >=60 [facility] Comment on above: Performed By: #### C MP, LIPID #### [facility] [address] [place] [address] Dr. Bebeto Alvarado Globulin (S) [Mass/Vol] 3.9 g/dL Normal [facility] Comment on above: Performed By: #### C MP, LIPID #### [facility] [address] [place] [address] Dr. Bebeto Alvarado Glucose [Mass/Vol] 108 mg/dL Critically high 74-106 [facility] Comment on above: Performed By: #### C MP, LIPID #### [facility] [address] [place] [address] Dr. Bebeto Alvarado Potassium [Moles/Vol] 4.0 mmol/L Normal 3.5-5.1 [facility] Comment on above: Performed By: #### C MP, LIPID #### [facility] [address] [place] [address] Dr. Bebeto Alvarado Protein [Mass/Vol] 7.6 g/dL Normal 6.4-8.2 [facility] Comment on above: Performed By: #### C MP, LIPID #### [facility] [address] [place] [address] Dr. Bebeto Alvarado Sodium [Moles/Vol] 143 mmol/L Normal 136-145 [facility] Comment on above: Performed By: #### C MP, LIPID #### [facility] [address] [place] [address] Dr. Bebeto Alvarado Urea nitrogen [Mass/Vol] 15.0 mg/dL Normal 7.0-18.0 [facility] Comment on above: Performed By: #### C MP, LIPID #### [facility] [address] [place] [address] Dr. Bebeto Alvarado Urea nitrogen/Creatinine [Mass ratio] 15.8 mg/mg Normal [facility] Comment on above: Performed By: #### C MP, LIPID #### [facility] [address] [place] [address] Dr. Bebeto Alvarado UA RANDOM W/MICROSCOPICon BACTERIA NONE SEEN Normal NONE SEEN [facility] Comment on above: Performed By: #### A 1C #### [facility] [address] [place] [address] Dr. Bebeto Alvarado Bilirubin Ql (U) Negative Normal NEGATIVE [facility] Comment on above: Performed By: #### A 1C #### [facility] [address] [place] [address] Dr. Bebeto Alvarado CAST NONE SEEN Normal NONE SEEN [facility] Comment on above: Performed By: #### A 1C #### [facility] [address] [place] [address] Dr. Bebeto Alvarado Clarity (U) CLEAR Normal CLEAR [facility] Comment on above: Performed By: #### A 1C #### [facility] [address] [place] [address] Dr. Bebeto Alvarado Color (U) YELLOW Normal YELLOW [facility] Comment on above: Performed By: #### A 1C #### [facility] [address] [place] [address] Dr. Bebeto Alvarado Crystals LM Nom (Urine sed) NONE SEEN Normal NONE SEEN [facility] Comment on above: Performed By: #### A 1C #### [facility] [address] [place] [address] Dr. Bebeto Alvarado Epithelial cells LM Ql (Urine sed) NONE SEEN Normal NONE SEEN /RARE [facility] Comment on above: Performed By: #### A 1C #### [facility] [address] [place] [address] Dr. Bebeto Alvarado Glucose Ql (U) Negative Normal NEGATIVE [facility] Comment on above: Performed By: #### A 1C #### [facility] [address] [address] [address] Bebeto Alvaardo Hemoglobin Ql (U) Negative Normal NEGATIVE [facility] Comment on above: Performed By: #### A 1C #### [facility] [address] [place] [address] Dr. Bebeto Alvarado Ketones Ql (U) Negative Normal NEGATIVE [facility] Comment on above: Performed By: #### A 1C #### [facility] [address] [place] [address] Dr. Bebeto Alvarado LEUKOCYTES Negative Normal NEGATIVE [facility] Comment on above: Performed By: #### A 1C #### [facility] [address] [place] [address] Dr. Bebeto Alvarado MUCOUS NONE SEEN Normal NONE SEEN [facility] Comment on above: Performed By: #### A 1C #### [facility] [address] [place] [address] Dr. Bebeto Alvarado Nitrite Ql (U) Negative Normal NEGATIVE [facility] Comment on above: Performed By: #### A 1C #### [facility] [address] [place] [address] Dr. Bebeto Alvarado pH (U) 5.5 [pH] Normal 5-9 [facility] Comment on above: Performed By: #### A 1C #### [facility] [address] [place] [address] Dr. Bebeto Alvarado RBC NONE SEEN Abnormal 0-2 [facility] Comment on above: Performed By: #### A 1C #### [facility] [address] [place] [address] Dr. Bebeto Alvarado SPEC GRAVITY 1.030 Abnormal 1.005-<=1.02 5 [facility] Comment on above: Performed By: #### A 1C #### [facility] [address] [place] [address] Dr. Bebeto Alvarado UA PROTEIN Negative Normal NEGATIVE/ TRACE [facility] Comment on above: Performed By: #### A 1C #### [facility] [address] [place] [address] Dr. Bebeto Alvarado Urobilinogen Qn (U) 0.2 {Katerin'U}/dL Normal 0.2 - 1. 0 [facility] Comment on above: Performed By: #### A 1C #### [facility] [address] [place] [address] Dr. Bebeto Alvarado WBC NONE SEEN Normal NONE SEEN [facility] Comment on above: Performed By: #### A 1C #### [facility] [address] [place] [address] Dr. Bebeto Alvarado VITAMIN B12on 07-25-2022 Cobalamin (Vitamin B12) [Mass/Vol] 1684.0 pg/mL Critically high 193.0-986.0 [facility] Comment on above: Performed By: #### V ITB12, IRON #### [facility] [address] [place] [address] Dr. Bebeto Alvarado PROF CHEM 8 (BAS METB)on Anion gap [Moles/Vol] 12.2 mmol/L Normal [facility] Comment on above: Performed By: #### B MP #### [facility] [address] [place] [address] Dr. Bebeto Alvarado Calcium [Mass/Vol] 8.9 mg/dL Normal 8.5-10.1 [facility] Comment on above: Performed By: #### B MP #### [facility] [address] [place] [address] Dr. Bebeto Alvarado Chloride [Moles/Vol] 105 mmol/L Normal 98-107 [facility] Comment on above: Performed By: #### B MP #### [facility] [address] [place] [address] Dr. Bebeto Alvarado CO2 [Moles/Vol] 29.6 mmol/L Normal 21.0-32.0 [facility] Comment on above: Performed By: #### B MP #### [facility] [address] [place] [address] Dr. Bebeto Alvarado Creatinine [Mass/Vol] 0.95 mg/dL Normal 0.55-1.02 [facility] Comment on above: Performed By: #### B MP #### [facility] [address] [address] [address] Bebeto Alvarado EGFR-AF NEPALESE >60 Normal >=60 [facility] Comment on above: Performed By: #### B MP #### [facility] [address] [address] [address] Bebeto Alvarado EGFR-NON AF NEPALESE 60 mL/min/1.73m2 Normal >=60 [facility] Comment on above: Performed By: #### B MP #### [facility] [address] [address] [address] Bebeto Alvarado Glucose [Mass/Vol] 101 mg/dL Normal 74-106 [facility] Comment on above: Performed By: #### B MP #### [facility] [address] [address] [address] Bebeto Alvarado Potassium [Moles/Vol] 3.8 mmol/L Normal 3.5-5.1 [facility] Comment on above: Performed By: #### B MP #### [facility] [address] [address] [address] Bebeto Alvarado Sodium [Moles/Vol] 143 mmol/L Normal 136-145 [facility] Comment on above: Performed By: #### B MP #### [facility] [address] [address] [address] Bebeto Alvarado Urea nitrogen [Mass/Vol] 16.0 mg/dL Normal 7.0-18.0 [facility] Comment on above: Performed By: #### B MP #### [facility] [address] [address] [address] Bebeto Alvarado Urea nitrogen/Creatinine [Mass ratio] 16.8 mg/mg Normal [facility] Comment on above: Performed By: #### B MP #### [facility] [address] [place] [address] Dr. Bebeto Alvarado CBC AUTO DIFFon 11-21-2021 BASO # 0.1 103/ul Normal 0.0-0.1 [facility] Comment on above: Performed By: #### A 1C #### [facility] [address] [place] [address] Dr. Bebeto Alvarado Basophils/100 WBC (Bld) 1.0 % Normal 0.2-2.0 [facility] Comment on above: Performed By: #### A 1C #### [facility] [address] [place] [address] Dr. Bebeto Alvarado EO # 0.2 103/ul Normal 0.0-0.7 [facility] Comment on above: Performed By: #### A 1C #### [facility] [address] [place] [address] Dr. Bebeto Alvarado Eosinophils/100 WBC (Bld) 3.3 % Normal 0.9-7.0 [facility] Comment on above: Performed By: #### A 1C #### [facility] [address] [place] [address] Dr. Bebeto Alvarado Erythrocyte distribution width (RBC) [Ratio] 13.8 % Normal 11.0-15.0 [facility] Comment on above: Performed By: #### A 1C #### [facility] [address] [place] [address] Dr. Bebeto Alvarado Hematocrit (Bld) [Volume fraction] 38.8 % Normal 36.0-48.0 [facility] Comment on above: Performed By: #### A 1C #### [facility] [address] [place] [address] Dr. Bebeto Alvarado Hemoglobin (Bld) [Mass/Vol] 12.5 g/dL Normal 12.0-16.0 [facility] Comment on above: Performed By: #### A 1C #### [facility] [address] [place] [address] Dr. Bebeto Alvarado IG # 0.02 10e3/ul Normal 0.00-0.03 [facility] Comment on above: Performed By: #### A 1C #### [facility] [address] [place] [address] Dr. Bebeto Alvarado IG % 0.3 % Normal 0.0-0.5 [facility] Comment on above: Performed By: #### A 1C #### [facility] [address] [place] [address] Dr. Bebeto Alvarado LYMPH # 1.9 103/ul Normal 1.2-3.8 [facility] Comment on above: Performed By: #### A 1C #### [facility] [address] [place] [address] Dr. Bebeto Alvarado Lymphocytes/100 WBC (Bld) 29.6 % Normal 20.5-60.0 [facility] Comment on above: Performed By: #### A 1C #### [facility] [address] [place] [address] Dr. Bebeto Alvarado MANUAL DIFF REQ NO Normal [facility] Comment on above: Performed By: #### A 1C #### [facility] [address] [place] [address] Dr. Bebeto Alvarado MCH (RBC) [Entitic mass] 28.0 pg Normal 26.7-34.0 [facility] Comment on above: Performed By: #### A 1C #### [facility] [address] [place] [address] Dr. Bebeto Alvarado MCHC (RBC) [Mass/Vol] 32.2 g/dL Normal 29.9-35.2 [facility] Comment on above: Performed By: #### A 1C #### [facility] [address] [place] [address] Dr. Bebeto Alvarado MCV (RBC) [Entitic vol] 86.8 fL Normal 81.0-99.0 [facility] Comment on above: Performed By: #### A 1C #### [facility] [address] [place] [address] Dr. Bebeto Alvarado MONO # 0.4 103/ul Normal 0.3-0.8 [facility] Comment on above: Performed By: #### A 1C #### [facility] [address] [place] [address] Dr. Bebeto Alvarado Monocytes/100 WBC (Bld) 5.7 % Normal 1.7-12.0 [facility] Comment on above: Performed By: #### A 1C #### [facility] [address] [address] [address] Bebeto Alvarado NEUT # 3.8 103/ul Normal 1.4-6.5 [facility] Comment on above: Performed By: #### A 1C #### [facility] [address] [address] [address] Bebeto Alvarado Neutrophils/100 WBC (Bld) 60.1 % Normal 43.0-75.0 [facility] Comment on above: Performed By: #### A 1C #### [facility] [address] [address] [address] Bebeto Alvarado Platelet mean volume (Bld) [Entitic vol] 11.0 fL Normal 9.5-13.5 [facility] Comment on above: Performed By: #### A 1C #### [facility] [address] [place] [address] Dr. Bebeto Alvarado PLT 264 103/ul Normal 150-450 [facility] Comment on above: Performed By: #### A 1C #### [facility] [address] [address] [address] Bebeto Alvarado RBC 4.47 106/ul Normal 4.20-5.40 [facility] Comment on above: Performed By: #### A 1C #### [facility] [address] [address] [address] Bebeto Alvarado WBC 6.3 103/ul Normal 4.0-11.0 [facility] Comment on above: Performed By: #### A 1C #### [facility] [address] [place] [address] Dr. Bebeto Alvarado GLYCOHEMOGLOBIN A1Con 2021 ADA RECOMMENDATION SEE BELOW Normal [facility] Comment on above: Result Comment: ADA RECOMMENDED LIMIT 4.0 - 6.0 ADA THERAPEUTIC TARGET < 7.0 ACTION SUGGESTED > 7.0 Performed By: #### A 1C #### [facility] [address] [place] [address] Dr. Bebeto Alvarado Glucose [Mass/Vol] 105 mg/dL Normal [facility] Comment on above: Performed By: #### A 1C #### [facility] [address] [place] [address] Dr. Bebeto Alvarado HbA1c (Bld) [Mass fraction] 5.3 % Normal 4.5-6.2 [facility] Comment on above: Performed By: #### A 1C #### [facility] [address] [place] [address] Dr. Bebeto Alvarado IRONon 11-21-2021 Iron [Mass/Vol] 59.0 ug/dL Normal 50.0-170.0 [facility] Comment on above: Performed By: #### A 1C #### [facility] [address] [place] [address] Dr. Bebeto Alvarado LIPID PROFILEon 11-21-2021 CHOL-HDL RATIO NORM SEE BELOW Normal [facility] Comment on above: Result Comment: 3.3 - 4.4 LOW RISK 4.4 - 7.1 AVERAGE RISK 7.1 - 11.0 MODERATE RISK >11.0 HIGH RISK Performed By: #### C MP, LIPID #### [facility] [address] [place] [address] Dr. Bebeto Alvarado Cholesterol [Mass/Vol] 139 mg/dL Normal <=200 [facility] Comment on above: Performed By: #### C MP, LIPID #### [facility] [address] [place] [address] Dr. Bebeto Alvarado Cholesterol in HDL [Mass/Vol] 35 mg/dL Critically low 40-60 [facility] Comment on above: Performed By: #### C MP, LIPID #### [facility] [address] [address] [address] Bebeto Alvarado Cholesterol in LDL [Mass/Vol] 69.6 mg/dL Normal [facility] Comment on above: Performed By: #### C MP, LIPID #### [facility] [address] [place] [address] Dr. Bebeto Alvarado Cholesterol.total/Chol esterol in HDL [Mass ratio] 4.0 {ratio} Normal [facility] Comment on above: Performed By: #### C MP, LIPID #### [facility] [address] [place] [address] Dr. Bebeto Alvarado HDL NORMAL > or = 60 mg/dl - LO W CARDIOVASCULAR RISK <40 mg/dl - HIGH CARDIOVASCULAR RISK Normal [facility] Comment on above: Performed By: #### C MP, LIPID #### [facility] [address] [address] [address] Bebeto Alvarado LDL CALC NORMAL SEE BELOW Normal [facility] Comment on above: Result Comment: <100 mg/dl OPTIMAL 100 - 129 mg/dl NEAR OR ABOVE OPTIMAL 130 - 159 mg/dl BORDERLINE HIGH 160 - 189 mg/dl HIGH >190 mg/dl VERY HIGH Performed By: #### C MP, LIPID #### [facility] [address] [address] [address] Bebeto Alvarado Triglyceride [Mass/Vol] 172 mg/dL Critically high <=150 [facility] Comment on above: Performed By: #### C MP, LIPID #### [facility] [address] [place] [address] Dr. Bebeto Alvarado VLDL CALC 34.4 mg/dL Normal [facility] Comment on above: Performed By: #### C MP, LIPID #### [facility] [address] [address] [address] Bebeto Alvarado PROF 14(COMP METB)on 022 Albumin [Mass/Vol] 3.8 g/dL Normal 3.4-5.0 [facility] Comment on above: Performed By: #### C MP, LIPID #### [facility] [address] [address] [address] Bebeto Alvarado Albumin/Globulin [Mass ratio] 1.1 {ratio} Normal [facility] Comment on above: Performed By: #### C MP, LIPID #### [facility] [address] [address] [address] Bebeto Alvarado ALP [Catalytic activity/Vol] 96 U/L Normal 46-116 [facility] Comment on above: Performed By: #### C MP, LIPID #### [facility] [address] [address] [address] Bebeto Alvarado ALT [Catalytic activity/Vol] 25 U/L Normal 14-59 [facility] Comment on above: Performed By: #### C MP, LIPID #### [facility] [address] [address] [address] Bebeto Alvarado Anion gap [Moles/Vol] 11.8 mmol/L Normal [facility] Comment on above: Performed By: #### C MP, LIPID #### [facility] [address] [address] [address] Bebeto Alvarado AST [Catalytic activity/Vol] 20 U/L Normal 15-37 [facility] Comment on above: Performed By: #### C MP, LIPID #### [facility] [address] [address] [address] Bebeto Alvarado Bilirubin [Mass/Vol] 0.4 mg/dL Normal 0.2-1.0 [facility] Comment on above: Performed By: #### C MP, LIPID #### [facility] [address] [place] [address] Dr. Bebeto Alvarado Calcium [Mass/Vol] 8.8 mg/dL Normal 8.5-10.1 [facility] Comment on above: Performed By: #### C MP, LIPID #### [facility] [address] [place] [address] Dr. Bebeto Alvarado Chloride [Moles/Vol] 106 mmol/L Normal 98-107 [facility] Comment on above: Performed By: #### C MP, LIPID #### [facility] [address] [place] [address] Dr. Bebeto Alvarado CO2 [Moles/Vol] 27.0 mmol/L Normal 21.0-32.0 [facility] Comment on above: Performed By: #### C MP, LIPID #### [facility] [address] [place] [address] Dr. Bebeto Alvarado Creatinine [Mass/Vol] 0.97 mg/dL Normal 0.55-1.02 [facility] Comment on above: Performed By: #### C MP, LIPID #### [facility] [address] [address] [address] Bebeto Alvarado EGFR-AF NEPALESE >60 Normal >=60 [facility] Comment on above: Performed By: #### C MP, LIPID #### [facility] [address] [address] [address] Bebeto Alvarado EGFR-NON AF NEPALESE 59 mL/min/1.73m2 Critically low >=60 [facility] Comment on above: Performed By: #### C MP, LIPID #### [facility] [address] [address] [address] Bebeto Alvarado Globulin (S) [Mass/Vol] 3.4 g/dL Normal [facility] Comment on above: Performed By: #### C MP, LIPID #### [facility] [address] [address] [address] Bebeto Alvarado Glucose [Mass/Vol] 103 mg/dL Normal 74-106 [facility] Comment on above: Performed By: #### C MP, LIPID #### [facility] [address] [address] [address] Bebeto Alvarado Potassium [Moles/Vol] 3.8 mmol/L Normal 3.5-5.1 [facility] Comment on above: Performed By: #### C MP, LIPID #### [facility] [address] [address] [address] Bebeto Alvarado Protein [Mass/Vol] 7.2 g/dL Normal 6.4-8.2 [facility] Comment on above: Performed By: #### C MP, LIPID #### [facility] [address] [address] [address] Bebeto Alvarado Sodium [Moles/Vol] 141 mmol/L Normal 136-145 [facility] Comment on above: Performed By: #### C MP, LIPID #### [facility] [address] [address] [address] Bebeto Alvarado Urea nitrogen [Mass/Vol] 11.0 mg/dL Normal 7.0-18.0 [facility] Comment on above: Performed By: #### C MP, LIPID #### [facility] [address] [address] [address] Bebeto Alvarado Urea nitrogen/Creatinine [Mass ratio] 11.3 mg/mg Normal [facility] Comment on above: Performed By: #### C MP, LIPID #### [facility] [address] [place] [address] Dr. Bebeto Alvarado URIC ACID SERUMon 11-21-2021 Urate [Mass/Vol] 7.3 mg/dL Critically high 2.6-6.0 [facility] Comment on above: Performed By: #### A 1C #### [facility] [address] [place] [address] Dr. Bebeto Alvarado VITAMIN B12on 11-21-2021 Cobalamin (Vitamin B12) [Mass/Vol] 2123.0 pg/mL Critically high 193.0-986.0 [facility] Comment on above: Performed By: #### A 1C #### [facility] [address] [place] [address] Dr. Bebeto Alvarado Physician Referralon 022 Physician Referral [phone] [id number] Normal [facility] KNEE RIGHT 1 OR 2 VWSon KNEE RIGHT 1 OR 2 VWS [facility] Department of Radiology [address] [place] [id number] ======== Patient Name: MICHELLE BE : [...] , Exam: KNEE RIGHT 1 OR 2 [facility] ======== KNEE RIGHT 1 OR [...] Electronically signed by:Debra Del Cid. Transcribed by: [email or web address], User Resident: Electronically Signed by: DEBRA DEL [...] [facility] KNEE RIGHT 1 OR 2 S [facility] Department of Radiology [address] [place] [id number] ======== Patient Name: MICHELLE BE : 1960 Sex: F Age: Race: White Pt. Location: 84 Patient Status: Ordered Date: 12/07/2018 10:20:00 AM Completed Date: 12/07/2018 10:20 AM Requesting Provider: AHSAN BIGNHAM Attending Provider: Report Copy To: Signs & Symptoms: S82.001A Unsp fracture of right patella, init for clos fx I10 History: [place] Comments: , , , Ordering Provider - [...] complications. Electronically signed by:Tomasz Stoll. Transcribed by: [email or web address], User Resident: Electronically Signed by: TOMASZ STOLL [...] [facility] KNEE RIGHT [address] [facility] Department of Radiology [address] [place] [phone] ======== Patient Name: MICHELLE BE : 1960 Sex: F Age: Race: White Pt. 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 Transcribed by: [email or web address], User Resident: Electronically Signed by: ANUP ELLISON [...] Hospital 08-05 KNEE RIGHT [address] [facility] Department of Radiology [address] [place] [phone] ======== Patient Name: MICHELLE BE : [...] effusion Electronically signed by:Anup Ellison. Transcribed by: [email or web address], User Resident: Electronically Signed by: ANUP ELLISON [...] 07-06 KNEE RIGHT 1 OR 2 S [facility] Department of Radiology [address] [place] [phone] ======== Patient Name: MICHELLE BE : [...] , Exam: KNEE RIGHT 1 OR 2 [facility] ======== KNEE RIGHT 1 OR [...] compartment Electronically signed by:Anup Ellison. Transcribed by: [email or web address], User Resident: Electronically Signed by: ANUP ELLISON [...] 3 [facility] 9 KNEE RIGHT 3 S [facility] of Radiology [address] [place] [phone] ======== Patient Name: MICHELLE BE : [...] RIGHT 3 VWS ======== KNEE RIGHT 3 S 07/15/2018 8:47 [...] knee Electronically signed by:Anup Ellison. Transcribed by: [email or web address], User Resident: Electronically Signed by: ANUP ELLISON [...] Duarte MD Date Trans: 07/03/2018 04:28 A/terry [id number] Normal [facility] *ANAEROBIC CULTUREon 019 *ANAEROBIC CULTURE Clinical Report: (D) Specimen/Source: SWAB/RT KNEE Collected: 07/02/2018 13:53 Status: Final Last Updated: 07/07/2018 08:02 CULT RES (Final) No Anaerobes Isolated 5 Days Normal [facility] Comment on above: Performed By: #### 3 0312 #### [address] *WOUND CULTUREon 07-02-2018 *WOUND CULTURE Clinical Report: (D) Specimen/Source: WOUND/INTRAOP SPEC Collected: 07/02/2018 13:53 Status: Final Last Updated: 07/07/2018 10:13 (1) #1 RT KNEE GRAM (Final) Rare Polys No Bacteria Seen CULT RES (Final) No Growth Day 5 Normal The [facility] Comment on above: Order Comment: #1 RT KNEE Performed By: #### 3 0343 #### [address] KNEE RIGHT 1 OR 2 [facility] 06-05 KNEE RIGHT 1 OR 2 S [facility] Department of Radiology [address] [place] [phone] ======== Patient Name: MICHELLE BE : [...] Electronically signed by:Debra Del Cid. Transcribed by: [email or web address], User Resident: Electronically Signed by: DEBRA DEL CID @ 07/02/2018 02:03 PM Normal [facility] Comment on above: Order Comment: ORIF VS PERCUTANEOUS FIXATION RIGHT PATELLA POC GLUCOSE LABon 07-02-2018 Glucose [Mass/Vol] 108 mg/dL High 70-100 The [facility] Comment on above: Performed By: #### 8 5499 #### [facility] [address] [facility] [place] [address], [facility] APTTon 06-30-2018 aPTT Coag (Bld) [...] THIS PURPOSE. Performed By: #### 5 6101, 77113 #### [facility] [address] [place] [address], [facility] BASIC METABOLIC PANELon 06-05 Calcium [Mass/Vol] 9.7 mg/dL Normal 8.6-10.3 The [facility] Comment on above: Performed By: #### 0 0071 #### [facility] [address] [place] [address], [facility] Chloride [Moles/Vol] 102 mmol/L Normal 98-107 The [facility] Comment on above: Performed By: #### 0 0071 #### [facility] [address] [place] [address], [facility] CO2 [Moles/Vol] 28 mmol/L Normal 21-31 The [facility] Comment on above: Performed By: #### 0 0071 #### [facility] [address] [place] [address], [place] Creatinine [Mass/Vol] 1.20 mg/dL Normal 0.60-1.20 The [facility] Comment on above: Performed By: #### 0 0071 #### [facility] [address] [place] [address], [place] GFR/1.73 sq M predicted among blacks MDRD (S/P/Bld) [Vol rate/Area] 56 ml/min/1.73sq m Abnormal >60 The [facility] Comment on above: Performed By: #### 0 0071 #### [facility] [address] [place] [address], [place] GFR/1.73 sq M predicted among non-blacks MDRD (S/P/Bld) [Vol rate/Area] 47 ml/min/1.73sq m Abnormal >60 The [facility] Comment on above: Performed By: #### 0 0071 #### [facility] [address] [place] [address], [place] Glucose [Mass/Vol] 97 mg/dL Normal 70-100 The [facility] Comment on above: Performed By: #### 0 0071 #### [facility] [address] [place] [address], [place] Potassium [Moles/Vol] 4.1 mmol/L Normal 3.5-5.1 The [facility] Comment on above: Performed By: #### 0 0071 #### [facility] [address] [place] [address], [place] Sodium [Moles/Vol] 137 mmol/L Normal 136-145 The [facility] Comment on above: Performed By: #### 0 0071 #### [facility] [address] [place] [address], [place] Urea nitrogen [Mass/Vol] 19 mg/dL Normal 7-25 The [facility] Comment on above: Performed By: #### 0 0071 #### [facility] [address] CBC W/DIFFon 06-30-2018 ABS BASOPHILS 0.1 10*3/uL Normal 0.0-0.2 The [facility] Comment on above: Performed By: #### 5 0103 #### [facility] [address] ABS IMM GRANS 0.0 10*3/uL Normal 0.0-0.2 The [facility] Comment on above: Performed By: #### 5 0103 #### [facility] [address] ABS NEUTROPHILS 6.4 10*3/uL Normal 1.6-7.6 The [facility] Comment on above: Performed By: #### 5 0103 #### [facility] [address] Basophils/100 WBC (Bld) 0.7 % Normal 0.0-1.0 The [facility] Comment on above: Performed By: #### 5 3 #### [facility] [address] Eosinophils (Bld) [#/Vol] 0.2 10*3/uL Normal 0.0-0.5 The [facility] Comment on above: Performed By: #### 5 3 #### [facility] [address] [place] [address], [facility] Eosinophils/100 WBC (Bld) 1.5 % Normal 0.0-6.0 The [facility] Comment on above: Performed By: #### 5 102 #### [facility] [address] [place] [address], [facility] Erythrocyte distribution width (RBC) [Ratio] 14.4 % Normal 11.5-15.0 The [facility] Comment on above: Performed By: #### 5 0103 #### [facility] [address] [facility] Hematocrit (Bld) [Volume fraction] 40.6 % Normal 36.0-45.0 The [facility] Comment on above: Performed By: #### 5 0103 #### [facility] [address] [facility]. [address] Hemoglobin (Bld) [Mass/Vol] 13.3 g/dL Normal 12.0-15.0 The [facility] Comment on above: Performed By: #### 5 3 #### [facility] [address] IMMATURE GRANS 0.4 % Normal 0.0-1.0 The [facility] Comment on above: Performed By: #### 5 3 #### [facility] [address] Lymphocytes (Bld) [#/Vol] 2.6 10*3/uL Normal 1.2-4.0 The [facility] Comment on above: Performed By: #### 5 3 #### [facility] [address] Lymphocytes/100 WBC (Bld) 26.5 % Normal 20.0-45.0 The [facility] Comment on above: Performed By: #### 5 3 #### [facility] [address] [facility]. [address] MCH (RBC) [Entitic mass] 27.4 pg Normal 27.0-33.0 The [facility] Comment on above: Performed By: #### 5 3 #### [facility] [address] MCHC (RBC) [Mass/Vol] 32.8 g/dL Normal 32.0-35.0 The [facility] Comment on above: Performed By: #### 5 102 #### [facility] [address] MCV (RBC) [Entitic vol] 83.5 fL Normal 82.0-98.0 The [facility] Comment on above: Performed By: #### 102 #### [facility] [address] [place] [address], [facility] Monocytes (Bld) [#/Vol] 0.5 10*3/uL Normal 0.1-1.0 The [facility] Comment on above: Performed By: #### 102 #### [facility] [address] MONOS 5.0 % Normal 5.0-12.0 The [facility] Comment on above: Performed By: #### 102 #### [facility] [address] Neutrophils/100 WBC (Bld) 65.9 % Normal 40.0-72.0 The [facility] Comment on above: Performed By: #### 102 #### [facility] [address] Nucleated RBC/100 WBC (Bld) [Ratio] 0 % Normal 0-0 The [facility] Comment on above: Performed By: #### 5 102 #### [facility] [address] [place] [address], [facility] PLAT CNT 290 10*3/uL Normal 150-400 The [facility] Comment on above: Performed By: #### 5 102 #### [facility] [address] [place] [address], [facility] RBC (Bld) [#/Vol] 4.86 10*6/uL Normal 3.80-5.00 The [facility] Comment on above: Performed By: #### 102 #### [address] [place], [place] [id number] [place] [address] WBC (Bld) [#/Vol] 9.68 10*3/uL Normal 4.00-10.60 The [facility] Comment on above: Performed By: #### 5 0103 #### [address] [address], [facility] KNEE RIGHT 1 OR 2 VWSon 06-05 KNEE RIGHT 1 OR 2 VWS [facility] Department of Radiology [address] [place] [phone] ======== Patient Name: MICHELLE BE : [...] Electronically signed by:Debra Del Cid. Transcribed by: [email or web address], User Resident: Electronically Signed by: DEBRA DEL CID @ 06/30/2018 11:52 AM Normal [facility] Comment on above: Order Comment: , Mabel ws (X-RAY, KNEE): Radiologic Protocol , Weight Bearing?: N , With or Without Brace/Cast/Collar: With , Views (X-RAY, KNEE): Radiologic Protocol , Weight Bearing?: N , With or Without Brace/Cast/Collar: With , , , Ordering Provider - AHSAN BINGHAM PA-C , PROTHROMBIN TIMEon 9 INR Coag (PPP) [Relative time] 0.98 {INR} Normal 0.91-1.16 The [facility] Comment on above: Result Comment: [facility] P RECOMMENDED INR FOR WARFARIN THERAPY [...] CHEST 1995;108:231S-246S. Performed By: #### 5 6101, [address] #### [address] PT Coag (PPP) [Time] 13.0 s Normal 12.3-14.8 The [facility] Comment on above: Result Comment: ALL RESULTS MUST BE INTERPRETED WITH RESPECT TO BLOOD DRAWING ARTIFACT OR DILUTION ERROR OF ANTICOAGULANT AT THE TIME OF SAMPLING. Performed By: #### 5 6101, [address] #### [address] KNEE RIGHT 3 [facility] 9 KNEE RIGHT 3 [facility] Department of Radiology [address] [place] [phone] ======== Patient Name: MICHELLE BE : [...] ZHANG PA-C , Exam: KNEE RIGHT 3 [facility] ======== KNEE RIGHT 3 [facility] 06/15/2018 1:34 PM EDT SIGNS [...] effusion Electronically signed by:Anup Ellison. Transcribed by: [email or web address], User Resident: Electronically Signed by: ANUP ELLISON @ 06/15/2018 03:50 PM Normal [facility] Comment on above: Order Comment: , Isaiah ght Bearing?: Y , Weight Bearing?: Y , , , Ordering Provider - AMPARO ZHANG PA-C , Vital Signs Date Time Vital Sign Value Performing Clinician Facility 11-18-2024 09:52-0400 Body height 162.6 cm Harrison Pocos DO Work Phone: [facility] 11-18-2024 09:52-0400 Body mass index (BMI) [Ratio] 47.55 kg/m2 Harrison Pocos DO Work Phone: [facility] 11-18-2024 09:52-0400 Body weight 125.65 kg Harrison Pocos DO Work Phone: [facility] 11-14-2024 10:16-0400 Body mass index (BMI) [Ratio] 47.62 kg/m2 Adelaida Aichholz [employer] Work Phone: [facility] 11-14-2024 10:16-0400 Body temperature 97.81 [degF] Adelaida Aichholz [employer] Work Phone: [facility] 11-14-2024 10:16-0400 Body weight 125.83 kg Adelaida Aichholz [employer] Work Phone: [facility] 11-14-2024 10:16-0400 Diastolic blood pressure 84 mm[Hg] Adelaida Aichholz [employer] Work Phone: [facility] 11-14-2024 10:16-0400 Heart rate 70 /min Adelaida Aichholz [employer] Work Phone: [facility] 11-14-2024 10:16-0400 Respiratory rate 20 /min Adelaida Aichholz [employer] Work Phone: [facility] 11-14-2024 10:16-0400 SaO2% (BldA) [Mass fraction] 98 % Adelaida Aichholz [employer] Work Phone: [facility] 11-14-2024 10:16-0400 Systolic blood pressure 124 mm[Hg] Adelaida Aichholz [employer] Work Phone: [facility] 10-27-2024 10:05-0400 Body height 162.6 cm Harrison Pocos DO Work Phone: [facility] 10-27-2024 10:05-0400 Body mass index (BMI) [Ratio] 47.55 kg/m2 Harrison Pocos DO Work Phone: [facility] 10-27-2024 10:05-0400 Body weight 125.65 kg Harrison Pocos DO Work Phone: [facility] 10-13-2024 08:42-0400 Body mass index (BMI) [Ratio] 48.75 kg/m2 Adelaida Kelsiez [employer] Work Phone: [facility] 10-13-2024 08:42-0400 Body temperature 98.49 [degF] Adelaida Merryholz [employer] Work Phone: [facility] 10-13-2024 08:42-0400 Body weight 128.82 kg Adelaida Kelsiez [employer] Work Phone: [facility] 10-13-2024 08:42-0400 Diastolic blood pressure 80 mm[Hg] Adelaida Merryholz [employer] Work Phone: [facility] 10-13-2024 08:42-0400 Heart rate 85 /min Adelaida Aichholz [employer] Work Phone: [facility] 10-13-2024 08:42-0400 Respiratory rate 20 /min Adelaida Merryholz [employer] Work Phone: [facility] 10-13-2024 08:42-0400 SaO2% (BldA) [Mass fraction] 95 % Adelaida Merryholz [employer] Work Phone: [facility] 10-13-2024 08:42-0400 Systolic blood pressure 132 mm[Hg] Adelaida Yinghholz [employer] Work Phone: [facility] 08-16-2024 11:25-0400 Body mass index (BMI) [Ratio] 48.23 kg/m2 Adelaida Merryholz [employer] Work Phone: [facility] 08-16-2024 11:25-0400 Body temperature 98.49 [degF] Adelaida Merryholz [employer] Work Phone: [facility] 08-16-2024 11:25-0400 Body weight 127.46 kg Adelaida Aichholz [employer] Work Phone: [facility] 08-16-2024 11:25-0400 Diastolic blood pressure 82 mm[Hg] Adelaida Aichholz [employer] Work Phone: [facility] 08-16-2024 11:25-0400 Heart rate 67 /min Adelaida Aichholz [employer] Work Phone: [facility] 08-16-2024 11:25-0400 Respiratory rate 18 /min Adelaida Aichholz [employer] Work Phone: [facility] 08-16-2024 11:25-0400 SaO2% (BldA) [Mass fraction] 97 % Adelaida Aichholz [employer] Work Phone: [facility] 08-16-2024 11:25-0400 Systolic blood pressure 120 mm[Hg] Adelaida Aichholz [employer] Work Phone: [facility] 07-27-2024 11:16-0400 Body mass index (BMI) [Ratio] 50.67 kg/m2 Adelaida Aichholz [employer] Work Phone: [facility] 07-27-2024 11:16-0400 Body temperature 98.8 [degF] Adelaida Aichholz [employer] Work Phone: [facility] 07-27-2024 11:16-0400 Body weight 133.9 kg Adelaida Aichholz [employer] Work Phone: [facility] 07-27-2024 11:16-0400 Diastolic blood pressure 86 mm[Hg] Adelaida Aichholz [employer] Work Phone: [facility] 07-27-2024 11:16-0400 Heart rate 82 /min Adelaida Aichholz [employer] Work Phone: [facility] 07-27-2024 11:16-0400 Respiratory rate 24 /min Adelaida Aichholz [employer] Work Phone: [facility] 07-27-2024 11:16-0400 SaO2% (BldA) [Mass fraction] 97 % Adelaida Carrion [employer] Work Phone: [facility] 07-27-2024 11:16-0400 Systolic blood pressure 124 mm[Hg] Adelaida Carrion [employer] Work Phone: [facility] 07-26-2024 10:48-0400 Body height 162.6 cm Juany Lowe PA Work Phone: [facility] 07-26-2024 10:48-0400 Body mass index (BMI) [Ratio] 50.98 kg/m2 Juany Lowe PA Work Phone: [facility] 07-26-2024 10:48-0400 Body weight 134.72 kg Juany Lowe PA Work Phone: [facility] 07-26-2024 10:48-0400 Diastolic blood pressure 84 mm[Hg] Juany Lowe PA Work Phone: [facility] 07-26-2024 10:48-0400 Systolic blood pressure 126 mm[Hg] Juany Lowe PA Work Phone: [facility] 05-24-2024 08:19-0500 Body height 162.6 cm Juany Lowe PA Work Phone: [facility] 05-24-2024 08:19-0500 Body mass index (BMI) [Ratio] 50.29 kg/m2 Juany Lowe PA Work Phone: [facility] 05-24-2024 08:19-0500 Body weight 132.9 kg Juany Lowe PA Work Phone: [facility] 05-24-2024 08:19-0500 Diastolic blood pressure 72 mm[Hg] Juany Lowe PA Work Phone: [facility] 05-24-2024 08:19-0500 Heart rate 62 /min Juany Lowe PA Work Phone: [facility] 05-24-2024 08:19-0500 Respiratory rate 16 /min Juany Kirbye PA Work Phone: [facility] 05-24-2024 08:19-0500 SaO2% (BldA) [Mass fraction] 100 % Juany Kirbye PA Work Phone: [facility] 05-24-2024 08:19-0500 Systolic blood pressure 110 mm[Hg] Juany Kirbye PA Work Phone: [facility] 05-12-2024 10:04-0500 Body height 162.6 cm Adelaida Aichholz [employer] Work Phone: [facility] 05-12-2024 10:04-0500 Body mass index (BMI) [Ratio] 49.16 kg/m2 Adelaida Aichholz [employer] Work Phone: [facility] 05-12-2024 10:04-0500 Body temperature 98.49 [degF] Adelaida Aichholz [employer] Work Phone: [facility] 05-12-2024 10:04-0500 Body weight 129.91 kg Adelaida Aichholz [employer] Work Phone: [facility] 05-12-2024 10:04-0500 Diastolic blood pressure 78 mm[Hg] Adelaida Aichholz [employer] Work Phone: [facility] 05-12-2024 10:04-0500 Heart rate 80 /min Adelaida Aichholz [employer] Work Phone: [facility] 05-12-2024 10:04-0500 Respiratory rate 20 /min Adelaida Aichholz [employer] Work Phone: [facility] 05-12-2024 10:04-0500 SaO2% (BldA) [Mass fraction] 98 % Adelaida Aichholz [employer] Work Phone: [facility] 05-12-2024 10:04-0500 Systolic blood pressure 118 mm[Hg] Adelaida Aichholz [employer] Work Phone: [facility] 03-16-2024 09:53-0500 Body height 162.6 cm Adelaida Yinghholz [employer]WALL INSTALLER Work Phone: [facility] 03-16-2024 09:53-0500 Body mass index (BMI) [Ratio] 48.41 kg/m2 Adelaida Aichholz DRYWALL INSTALLER Work Phone: [facility] 03-16-2024 09:53-0500 Body temperature 98.01 [degF] Adelaida Yinghholz DRYWALL INSTALLER Work Phone: [facility] 03-16-2024 09:53-0500 Body weight 127.91 kg Adelaida Aichholz DRYWALL INSTALLER Work Phone: [facility] 03-16-2024 09:53-0500 Diastolic blood pressure 80 mm[Hg] Adelaida Yinghholz DRYWALL INSTALLER Work Phone: [facility] 03-16-2024 09:53-0500 Heart rate 79 /min Adelaida Yinghholz DRYWALL INSTALLER Work Phone: [facility] 03-16-2024 09:53-0500 Respiratory rate 18 /min Adelaida Aichholz DRYWALL INSTALLER Work Phone: [facility] 03-16-2024 09:53-0500 SaO2% (BldA) [Mass fraction] 98 % Adelaida Yinghholz DRYWALL INSTALLER Work Phone: [facility] 03-16-2024 09:53-0500 Systolic blood pressure 120 mm[Hg] Adelaida Yinghholz DRYWALL INSTALLER Work Phone: [facility] 03-10-2024 15:20-0500 Body height 162.6 cm Rachel REDDY Work Phone: [facility] 03-10-2024 15:20-0500 Body mass index (BMI) [Ratio] 48.41 kg/m2 Rachel REDDY Work Phone: [facility] 03-10-2024 15:20-0500 Body weight 127.91 kg Rachel REDDY Work Phone: [facility] 03-10-2024 15:20-0500 Diastolic blood pressure 68 mm[Hg] Rachel Sahni PA Work Phone: [facility] 03-10-2024 15:20-0500 Heart rate 74 /min Rachel Sahni PA Work Phone: [facility] 03-10-2024 15:20-0500 Respiratory rate 16 /min Rachel Sahni PA Work Phone: [facility] 03-10-2024 15:20-0500 SaO2% (BldA) [Mass fraction] 98 % Rachel Stephen PA Work Phone: [facility] 03-10-2024 15:20-0500 Systolic blood pressure 102 mm[Hg] Rachel Sahni PA Work Phone: [facility] 03-01-2024 12:48-0500 Body height 162.6 cm Jauny Lowe PA Work Phone: [facility] 03-01-2024 12:48-0500 Body mass index (BMI) [Ratio] 48.92 kg/m2 Juany Lowe PA Work Phone: [facility] 03-01-2024 12:48-0500 Body weight 129.28 kg Juany Lowe PA Work Phone: [facility] 03-01-2024 12:48-0500 Diastolic blood pressure 88 mm[Hg] Juany Lowe PA Work Phone: [facility] 03-01-2024 12:48-0500 Systolic blood pressure 140 mm[Hg] Juany Lowe PA Work Phone: [facility] 02-16-2024 11:18-0500 Body height 162.6 cm Adelaida Carrion DRYWALL INSTALLER Work Phone: [facility] 02-16-2024 11:18-0500 Body mass index (BMI) [Ratio] 50.77 kg/m2 Adelaida Carrion DRYWALL INSTALLER Work Phone: [facility] 02-16-2024 11:18-0500 Body temperature 98.49 [degF] Adelaida Aichholz DRYWALL INSTALLER Work Phone: [facility] 02-16-2024 11:18-0500 Body weight 134.17 kg Adelaida Aichholz DRYWALL INSTALLER Work Phone: [facility] 02-16-2024 11:18-0500 Diastolic blood pressure 82 mm[Hg] Adelaida Aichholz DRYWALL INSTALLER Work Phone: [facility] 02-16-2024 11:18-0500 Heart rate 69 /min Adelaida Aichholz DRYWALL INSTALLER Work Phone: [facility] 02-16-2024 11:18-0500 Respiratory rate 20 /min Adelaida Aichholz DRYWALL INSTALLER Work Phone: [facility] 02-16-2024 11:18-0500 SaO2% (BldA) [Mass fraction] 98 % Adelaida Aichholz DRYWALL INSTALLER Work Phone: [facility] 02-16-2024 11:18-0500 Systolic blood pressure 122 mm[Hg] Adelaida Aichholz DRYWALL INSTALLER Work Phone: [facility] 01-28-2024 13:46-0400 Body height 162.6 cm Adelaida Aichholz DRYWALL INSTALLER Work Phone: [facility] 01-28-2024 13:46-0400 Body mass index (BMI) [Ratio] 48.99 kg/m2 Adelaida Aichholz DRYWALL INSTALLER Work Phone: [facility] 01-28-2024 13:46-0400 Body temperature 98.71 [degF] Adelaida Aichholz DRYWALL INSTALLER Work Phone: [facility] 01-28-2024 13:46-0400 Body weight 129.46 kg Adelaida Aichholz DRYWALL INSTALLER Work Phone: [facility] 01-28-2024 13:46-0400 Diastolic blood pressure 78 mm[Hg] Adelaida Aichholz DRYWALL INSTALLER Work Phone: [facility] 01-28-2024 13:46-0400 Heart rate 81 /min Adelaida Aichholz DRYWALL INSTALLER Work Phone: [facility] 01-28-2024 13:46-0400 Respiratory rate 18 /min Adelaida Merryholz DRYWALL INSTALLER Work Phone: [facility] 01-28-2024 13:46-0400 SaO2% (BldA) [Mass fraction] 99 % Adelaida Yinghholz DRYWALL INSTALLER Work Phone: [facility] 01-28-2024 13:46-0400 Systolic blood pressure 110 mm[Hg] Adelaida Yinghholz DRYWALL INSTALLER Work Phone: [facility] 01-04-2024 09:39-0400 Body height 162.6 cm Adelaida Yinghholz DRYWALL INSTALLER Work Phone: [facility] 01-04-2024 09:39-0400 Body mass index (BMI) [Ratio] 48.75 kg/m2 Adelaida Yinghholz DRYWALL INSTALLER Work Phone: [facility] 01-04-2024 09:39-0400 Body temperature 97.81 [degF] Adelaida Yinghholz DRYWALL INSTALLER Work Phone: [facility] 01-04-2024 09:39-0400 Body weight 128.82 kg Adelaida Merryholz DRYWALL INSTALLER Work Phone: [facility] 01-04-2024 09:39-0400 Diastolic blood pressure 78 mm[Hg] Adelaida Yinghholz DRYWALL INSTALLER Work Phone: [facility] 01-04-2024 09:39-0400 Heart rate 67 /min Adelaida Yinghholz DRYWALL INSTALLER Work Phone: [facility] 01-04-2024 09:39-0400 Respiratory rate 19 /min Adelaida Aichholz DRYWALL INSTALLER Work Phone: [facility] 01-04-2024 09:39-0400 SaO2% (BldA) [Mass fraction] 99 % Adelaida Aichholz DRYWALL INSTALLER Work Phone: [facility] 01-04-2024 09:39-0400 Systolic blood pressure 116 mm[Hg] Adelaida Sousabob DRYWALL INSTALLER Work Phone: [facility] 12-09-2023 10:14-0400 Body height 162.6 cm Juany Caballero DRYWALL INSTALLER Work Phone: [facility] 12-09-2023 10:14-0400 Body mass index (BMI) [Ratio] 48.92 kg/m2 Juany Singhmor DRYWALL INSTALLER Work Phone: [facility] 12-09-2023 10:14-0400 Body weight 129.28 kg Juany Singhmor DRYWALL INSTALLER Work Phone: [facility] 12-09-2023 10:14-0400 Diastolic blood pressure 78 mm[Hg] Juany Singhmor DRYWALL INSTALLER Work Phone: [facility] 12-09-2023 10:14-0400 SaO2% (BldA) [Mass fraction] 97 % Juany Singhmor DRYWALL INSTALLER Work Phone: [facility] 12-09-2023 10:14-0400 Systolic blood pressure 122 mm[Hg] Juany Singhmor DRYWALL INSTALLER Work Phone: [facility] 12-08-2023 15:24-0400 Body height 162.6 cm Sonam Franzgel DRYWALL INSTALLER Work Phone: [facility] 12-08-2023 15:24-0400 Body mass index (BMI) [Ratio] 48.92 kg/m2 Sonam Windnagel DRYWALL INSTALLER Work Phone: [facility] 12-08-2023 15:24-0400 Body weight 129.28 kg Sonam Windnagel DRYWALL INSTALLER Work Phone: [facility] 12-08-2023 15:24-0400 Diastolic blood pressure 77 mm[Hg] Sonam Windnagel DRYWALL INSTALLER Work Phone: [facility] 12-08-2023 15:24-0400 Heart rate 72 /min Sonam Windnagel DRYWALL INSTALLER Work Phone: [facility] 12-08-2023 15:24-0400 Systolic blood pressure 134 mm[Hg] Sonam Windnagel DRYWALL INSTALLER Work Phone: [facility] 05-18-2023 16:30-0500 Body height 162.6 cm Adelaidamyrna Hesherineholz DRYWALL INSTALLER Work Phone: [facility] 05-18-2023 16:30-0500 Body mass index (BMI) [Ratio] 47.89 kg/m2 Adelaida Aichholz DRYWALL INSTALLER Work Phone: [facility] 05-18-2023 16:30-0500 Body temperature 97.3 [degF] Adelaida Aichholz DRYWALL INSTALLER Work Phone: [facility] 05-18-2023 16:30-0500 Body weight 126.55 kg Adelaida Aichholz DRYWALL INSTALLER Work Phone: [facility] 05-18-2023 16:30-0500 Diastolic blood pressure 80 mm[Hg] Adelaida Aichholz DRYWALL INSTALLER Work Phone: [facility] 05-18-2023 16:30-0500 Heart rate 76 /min Adelaida Aichholz DRYWALL INSTALLER Work Phone: [facility] 05-18-2023 16:30-0500 Respiratory rate 19 /min Adelaida Aichholz DRYWALL INSTALLER Work Phone: [facility] 05-18-2023 16:30-0500 SaO2% (BldA) [Mass fraction] 97 % Adelaida Aichholz DRYWALL INSTALLER Work Phone: [facility] 05-18-2023 16:30-0500 Systolic blood pressure 134 mm[Hg] Adelaida Aichholz DRYWALL INSTALLER Work Phone: [facility] 03-23-2023 12:10-0500 Diastolic blood pressure 98 mm[Hg] Adelaida Aichholz Work Phone: [facility] 03-23-2023 12:10-0500 Heart rate 76 /min Adelaida Aichholz Work Phone: [facility] 03-23-2023 12:10-0500 Respiratory rate 18 /min Adelaida Aichholz Work Phone: [facility] 03-23-2023 12:10-0500 SaO2% (BldA) [Mass fraction] 99 % Adelaida Carrion Work Phone: [facility] 03-23-2023 12:10-0500 Systolic blood pressure 162 mm[Hg] Adelaida Carrion Work Phone: [facility] 03-23-2023 10:53-0500 Body height 162.56 cm Adelaida Carrion Work Phone: [facility] 03-23-2023 10:53-0500 Body weight 125.64 kg Adelaida Carrion Work Phone: [facility] 12-19-2022 14:55-0400 Body height 162.56 cm Rosemary Vernonmond Other [employer] Other 12-19-2022 14:55-0400 Body mass index (BMI) [Ratio] 47.85 kg/m2 Rosemary Marita Other [employer] Other 12-19-2022 14:55-0400 Body temperature 97.8 [degF] Rosemary Vernonmond Other [employer] Other 12-19-2022 14:55-0400 Body weight 126.46 kg Rosemary Marita Other [employer] Other 12-19-2022 14:55-0400 Respiratory rate 20 /min Rosemary Marita Other [employer] Other 12-19-2022 14:55-0400 SaO2% (BldA) [Mass fraction] 95 % Rosemary Marita Other [employer] [facility] Other 11-20-2022 13:12-0400 Body temperature 97.7 [degF] Adelaida Aichholz Work Phone: [facility] 11-20-2022 13:12-0400 SaO2% (BldA) [Mass fraction] 96 % Adelaida Aichholz Work Phone: [facility] 11-20-2022 07:44-0400 Diastolic blood pressure 90 mm[Hg] Adelaida Aichholz Work Phone: [facility] 11-20-2022 07:44-0400 Heart rate 103 /min Adelaida Aichholz Work Phone: [facility] 11-20-2022 07:44-0400 Systolic blood pressure 152 mm[Hg] Adelaida Aichholz Work Phone: [facility] 11-19-2022 20:00-0400 Respiratory rate 18 /min Adelaida Aichholz Work Phone: [facility] 11-18-2022 15:18-0400 Body height 162.56 cm Adelaida Aichholz Work Phone: [facility] 11-17-2022 09:00-0400 Body weight 122.92 kg Adelaida Aichholz Work Phone: [facility] Encounters Encounter Date Encounter Type Care Provider Facility Start: 11-18-2024 End: 11-18-2024 Bamboo flowsheet Harrison Shea Pocos DO Work Phone: [facility] Start: 11-18-2024 End: 11-18-2024 Bamboo flowsheet Harrison Shea Pocos DO Work Phone: [facility] Start: 11-18-2024 End: 11-18-2024 Patient encounter procedure Harrison Shea Pocos DO Work Phone: [facility] Comment on above: Acute medial meniscu s tear of right knee, initial encounter (Primary Dx); Chronic pain of right knee; Morbid obesity ([facility]); Primary osteoarthritis of right knee; Preoperative testing Start: 11-18-2024 End: 11-18-2024 Patient encounter status Harrison Shea Pocos DO Work Phone: [facility] Start: 11-18-2024 End: 11-18-2024 ambulatory HARRISON Shea POCOS Not Available Start: 11-17-2024 End: 11-17-2024 ambulatory HARRISON Shea POCOS Not Available Start: 11-14-2024 End: 11-14-2024 Bamboo flowsheet Adelaida Carrion DRYWALL INSTALLER Work Phone: [facility] Start: 11-14-2024 End: 11-17-2024 Bamboo flowsheet Adelaida Carrion DRYWALL INSTALLER Work Phone: [facility] Start: 11-14-2024 End: 11-17-2024 Clinisync Result Encounter Adelaida Carrion DRYWALL INSTALLER Work Phone: [facility] External Department Unsolicited Start: 11-14-2024 End: 11-14-2024 Office outpatient visit 25 minutes Adelaida Carrion DRYWALL INSTALLER Work Phone: [facility] Comment on above: Well woman exam with routine gynecological exam (Primary Dx); Morbid (severe) obesity due to excess calories [place] Primary hypertension ; Anemia, unspecified type; Bilateral lower extremity edema; Osteoporosis, unspecified osteoporosis type, unspecified pathological fracture presence ; Chronic kidney disease, stage 3a ([facility]); Pre-diabetes Start: 11-14-2024 End: 11-14-2024 Patient encounter procedure Adelaida Carrion DRYWALL INSTALLER Work Phone: [facility] Start: 11-14-2024 End: 11-14-2024 ambulatory ADELAIDA CARRION Not Available Start: 11-08-2024 ambulatory Eduardo Monk Facility:[facility] Start: 10-27-2024 End: 10-27-2024 Patient encounter procedure Harrison Shea Pocos DO Work Phone: [facility] Comment on above: Right knee pain, uns pecified chronicity (Primary Dx); Primary osteoarthritis of right knee; Morbid obesity ([facility]) Start: 10-27-2024 End: 10-27-2024 ambulatory MICHEL POCOS Not Available Start: 10-27-2024 End: 10-27-2024 ambulatory MICHEL POCOS Not Available Start: 10-13-2024 End: 10-13-2024 Bamboo flowsheet Adelaida Carrion DRYWALL INSTALLER Work Phone: [facility] Start: 10-13-2024 End: 10-13-2024 Bamboo flowsheet Adelaida Carrion DRYWALL INSTALLER Work Phone: [facility] Start: 10-13-2024 End: 10-13-2024 Office outpatient visit 25 minutes Adelaida Carrion DRYWALL INSTALLER Work Phone: [facility] Comment on above: Disorientation (Prim zuleika Dx); Essential (primary) hypertension ; Allergic rhinitis, unspecified seasonality, unspecified trigger; Allergic rhinitis, unspecified; Gastro-esophageal reflux disease without esophagitis; Bilateral lower extremity edema; OSMANY (obstructive sleep apnea); Primary hypertension ; Osteoporosis, unspecified osteoporosis type, unspecified pathological fracture presence Start: 10-13-2024 End: 10-13-2024 ambulatory ADELAIDA CARRION Not Available Start: 10-10-2024 End: 10-10-2024 ambulatory Syeda Mancuso MD Facility:[facility] Start: 10-08-2024 End: 10-09-2024 Emergency department patient visit ADELAIDA CARRION [facility] Start: 09-29-2024 End: 09-29-2024 Clinisync [...] 09-19-2024 End: 09-19-2024 ambulatory Syeda Mancuso MD Facility:[facility] Start: 08-16-2024 End: 08-16-2024 Bamboo flowsheet Adelaida Carrion DRYWALL INSTALLER Work Phone: [facility] Start: 08-16-2024 End: 08-16-2024 Bamboo flowsheet Adelaida Carrion DRYWALL INSTALLER Work Phone: [facility] Start: 08-16-2024 End: 08-16-2024 Office outpatient visit 15 minutes Adelaida Carrion DRYWALL INSTALLER Work Phone: [facility] Comment on above: Primary hypertension (CMS/HCC) (Primary Dx); Bronchitis; Bilateral lower extremity edema; Morbid (severe) obesity due to excess calories (CMS/HCC); Pre-diabetes; Allergic rhinitis, unspecified seasonality, unspecified trigger; Encounter for screening mammogram for malignant neoplasm of breast; Former cigarette smoker Start: 08-16-2024 End: 08-16-2024 ambulatory ADELAIDA CARRION Not Available Start: 08-08-2024 End: 08-08-2024 ambulatory Syeda Mancuso MD Facility:[facility] Start: 07-27-2024 End: 07-27-2024 Bamboo flowsheet Adelaida Carrion DRYWALL INSTALLER Work Phone: [facility] Start: 07-27-2024 End: 07-27-2024 Bamboo flowsheet Adelaida Carrion DRYWALL INSTALLER Work Phone: [facility] Start: 07-27-2024 End: 07-27-2024 Office outpatient visit 15 minutes Adelaida Carrion DRYWALL INSTALLER Work Phone: [facility] Comment on [...] Phone: [facility] Start: 07-26-2024 End: 07-26-2024 Bamboo flowsheet Juany [...] Diana Start: 06-14-2024 End: 06-14-2024 Refill Adelaida Aichholz DRYWALL INSTALLER Work Phone: [facility] Comment on above: URI, acute (Primary Dx) Start: 06-07-2024 End: 06-07-2024 Refill Juany Lowe PA Work Phone: [facility] Comment on above: Restless leg Start: 05-24-2024 End: 05-24-2024 Bamboo flowsheet Juany Lowe PA Work Phone: [facility] Start: 05-24-2024 End: 05-24-2024 Bamboo flowsheet Juany Lowe PA Work Phone: [facility] Start: 05-24-2024 End: 05-24-2024 Office outpatient visit 25 minutes Juany Lowe PA Work Phone: [facility] Comment on above: Cerebrovascular acci dent (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 (CMS/HCC) (Primary Dx); OSMANY (obstructive sleep apnea); Metabolic encephalopathy; Restless leg; Degeneration of intervertebral disc of lumbar region with discogenic back pain and lower extremity pain Start: 05-24-2024 End: 05-24-2024 ambulatory JUANY LEGGETT Not Available Start: 05-23-2024 End: 05-23-2024 ambulatory Syeda Mancuso MD Facility:[facility] Start: 05-12-2024 End: 05-12-2024 Bamboo flowsheet Adelaida Carrion DRYWALL INSTALLER Work Phone: [facility] Start: 05-12-2024 End: 05-12-2024 Bamboo flowsheet Adelaida Carrion DRYWALL INSTALLER Work Phone: [facility] Start: 05-12-2024 End: 05-12-2024 Office outpatient visit 25 minutes Adelaida Carrion DRYWALL INSTALLER Work Phone: [facility] Comment on above: Primary hypertension [...] 05-09-2024 End: 05-09-2024 ambulatory [facility] Start: 04-12-2024 End: 04-12-2024 Refill Juany REDDY Work Phone: [facility] Comment on above: Transient alteration of awareness (Primary Dx); Restless leg Start: 04-07-2024 End: 04-07-2024 Patient encounter procedure David Foster PhD Work Phone: [facility] Comment on above: Metabolic encephalop athy (Primary Dx); Memory change; Altered mental status, unspecified altered mental status type; Concentration deficit; PTSD (post-traumatic stress disorder) (CMS/HCC); Bipolar affective disorder, remission status unspecified (CMS/HCC); Family history of dementia; 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CMS/HCC); OSMANY (obstructive sleep apnea) Start: 04-07-2024 End: 04-07-2024 ambulatory ADELAIDA CARRION Not Available Start: 03-22-2024 End: 03-22-2024 ambulatory RACHEL SAHNI Not Available Start: 03-16-2024 End: 03-16-2024 Bamboo flowsheet Adelaida Carrion DRYWALL INSTALLER Work Phone: [facility] Start: 03-16-2024 End: 03-16-2024 Bamboo flowsheet Adelaida Carrion DRYWALL INSTALLER Work Phone: [facility] Start: 03-16-2024 End: 03-16-2024 Office outpatient visit 25 minutes Adelaida Carrion DRYWALL INSTALLER Work Phone: [facility] Comment on above: Metabolic encephalop athy (Primary Dx); OSMANY (obstructive sleep apnea); Morbid obesity (CMS/HCC); Bilateral lower extremity edema; Tobacco dependence; Bipolar disorder with severe depression (CMS/HCC); At risk for polypharmacy; Anxiety; Primary hypertension ([facility]); Right bundle branch block (RBBB) determined by electrocardiography Start: 03-16-2024 End: 03-16-2024 ambulatory ADELAIDA SHEYLA Not Available Start: 03-15-2024 End: 03-16-2024 Telephone encounter David Norman MA [facility] Start: 03-14-2024 End: 03-14-2024 Bamboo flowsheet David Foster PhD Work Phone: [facility] Start: 03-14-2024 End: 03-14-2024 Bamboo flowsheet David Foster PhD Work Phone: [facility] Start: 03-14-2024 End: 03-14-2024 ambulatory DAVID FOSTER Not Available Start: 03-14-2024 End: 03-14-2024 Patient encounter procedure David Foster PhD Work Phone: [facility] Comment on above: Altered mental statu s, unspecified altered mental status type (Primary Dx); Memory change; Concentration deficit; 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 (CMS/HCC); PTSD (post-traumatic stress disorder) (CMS/HCC); Bipolar affective disorder, remission status unspecified (CMS/HCC); Family history of dementia Start: 03-10-2024 End: 03-10-2024 Office outpatient visit 25 minutes Rachel REDDY Work Phone: [facility] Comment on above: Altered mental statu s, unspecified altered mental status type (Primary Dx); Restless leg; 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CMS/HCC); OSMANY (obstructive sleep apnea) Start: 03-10-2024 End: 03-10-2024 ambulatory RACHEL SAHNI Not Available Start: 03-03-2024 End: 03-07-2024 Evaluation and management of inpatient Adelaida Carrion Facility:[facility] Start: 03-02-2024 End: 03-04-2024 Clinisync Result Encounter Generic External Data Provider [facility] External Department Unsolicited Start: 03-02-2024 End: 03-04-2024 Clinisync Result Encounter Generic External Data Provider [facility] External Department Unsolicited Start: 03-02-2024 End: 03-02-2024 Refill Adelaida Carrion DRYWALL INSTALLER Work Phone: [facility] Comment on above: Yeast infection of t [...] change Start: 02-28-2024 End: 02-29-2024 Refill Adelaida Sheyla DRYWALL INSTALLER Work Phone: [facility] Comment on above: Allergic rhinitis, u nspecified Start: 02-24-2024 End: 02-24-2024 Refill Adelaida Sheyla DRYWALL INSTALLER Work Phone: [facility] Comment on above: Essential (primary) hypertension (CMS/HCC); Allergic rhinitis, unspecified Start: 02-16-2024 End: 02-16-2024 Bamboo flowsheet Adelaida Carrion DRYWALL INSTALLER Work Phone: [facility] Start: 02-16-2024 End: 02-23-2024 Clinisync Result Encounter Adelaida Carrion DRYWALL INSTALLER Work Phone: [facility] External Department Unsolicited Start: 02-16-2024 End: 02-23-2024 Clinisync Result Encounter Adelaida Sheyla DRYWALL INSTALLER Work Phone: [facility] External Department Unsolicited Start: 02-16-2024 End: 02-16-2024 Patient encounter procedure Adelaida Sheyla DRYWALL INSTALLER Work Phone: [facility] Start: 02-16-2024 End: 02-16-2024 Periodic preventive med est patient 40-64yrs Adelaida Carrion DRYWALL INSTALLER Work Phone: [facility] Comment on above: Well woman exam with routine gynecological exam (Primary Dx); Morbid obesity (CMS/HCC) Start: 02-16-2024 End: 02-16-2024 ambulatory ADELAIDA SHEYLA Not Available Start: 02-04-2024 End: 02-04-2024 Refill Sonam Brown DRYWALL INSTALLER Work Phone: [facility] Comment on above: Restless leg Start: 01-28-2024 End: 01-28-2024 Bamboo flowsheet Adelaida Carrion DRYWALL INSTALLER Work Phone: [facility] Start: 01-28-2024 End: 01-28-2024 Bamboo flowsheet Adelaida Sheyla DRYWALL INSTALLER Work Phone: [facility] Start: 01-28-2024 End: 01-28-2024 Office outpatient visit 15 minutes Adelaida Sheyla DRYWALL INSTALLER Work Phone: [facility] Comment on above: Acute cystitis witho ut hematuria (Primary Dx); Tobacco dependence; Needs flu shot; Morbid obesity (CMS/HCC) Start: 01-28-2024 End: 01-28-2024 ambulatory ADELAIDA CARRION Not Available Start: 01-25-2024 End: 01-25-2024 ambulatory Syeda Mancuso MD Facility:[facility] Start: 01-21-2024 End: 01-25-2024 Clinisync Result Encounter Generic External Data Provider [facility] External Department Unsolicited Start: 01-21-2024 End: 01-25-2024 Clinisync Result Encounter Generic External Data Provider [facility] External Department Unsolicited Start: 01-05-2024 End: 01-05-2024 Clinisync Result Encounter Adelaida Carrion DRYWALL INSTALLER Work Phone: [facility] External Department Unsolicited Start: 01-05-2024 End: 01-05-2024 Clinisync Result Encounter Adelaida Sheyla DRYWALL INSTALLER Work Phone: [facility] External Department Unsolicited Start: 01-04-2024 End: 01-04-2024 Bamboo flowsheet Adelaida Carrion DRYWALL INSTALLER Work Phone: [facility] Start: 01-04-2024 End: 01-04-2024 Bamboo flowsheet Adelaida Sheyla DRYWALL INSTALLER Work Phone: [facility] Start: 01-04-2024 End: 01-04-2024 Office outpatient visit 25 minutes Adelaida Carrion DRYWALL INSTALLER Work Phone: [facility] Comment on above: Bilateral lower extr emity edema (Primary Dx); Essential (primary) hypertension (CMS/HCC); Allergic rhinitis, unspecified; OSMANY (obstructive sleep apnea); Primary hypertension (CMS/HCC); Morbid obesity (CMS/HCC) Start: 01-04-2024 End: 01-04-2024 ambulatory ADELAIDA AICHHOLZ Not Available Start: 12-30-2023 End: 12-30-2023 Refill Adelaida Aichholz DRYWALL INSTALLER Work Phone: [facility] Comment on above: Lower extremity elis a Start: 12-09-2023 End: 12-09-2023 Office outpatient visit 25 minutes Juany Caballero DRYWALL INSTALLER Work Phone: [facility] [address] [address] Comment on above: OSMANY (obstructive sle ep apnea) (Primary Dx); Restless leg Start: 12-09-2023 End: 12-09-2023 ambulatory JUANY CABALLERO Not Available Start: 12-08-2023 End: 12-08-2023 ambulatory SONAM Keiry BROWN Not Available Start: 12-08-2023 End: 12-08-2023 Office outpatient visit 25 minutes Sonam Keiry Brown DRYWALL INSTALLER Work Phone: [facility] [employer] [facility] Comment on above: 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CMS /HCC) (Primary Dx); Restless leg; Metabolic encephalopathy Start: 12-08-2023 End: 12-08-2023 Bamboo flowsheet Sonam C Clevelandnagel DRYWALL INSTALLER Work Phone: [facility] [employer] [address] Start: 12-08-2023 End: 12-08-2023 Bamboo flowsheet Sonam C Clevelandnagel DRYWALL INSTALLER Work Phone: [facility] [employer] [facility] Start: 11-27-2023 End: 11-27-2023 Refill Adelaida Aichholz DRYWALL INSTALLER Work Phone: [facility] Comment on above: Yeast infection of t he skin (Primary Dx) Start: 05-21-2023 Refill Adelaida Aichholz DRYWALL INSTALLER Work Phone: [facility] Comment on above: Acute cystitis with hematuria (Primary Dx) Start: 05-18-2023 End: 05-18-2023 Office outpatient visit 25 minutes Adelaida Aicsherineholz DRYWALL INSTALLER Work Phone: [facility] Comment on above: Encounter for annual wellness visit (AWV) in Medicare patient (Primary Dx); OMSANY (obstructive sleep apnea); Chronic pain disorder; Gastroesophageal reflux disease, unspecified whether esophagitis present; Overactive bladder; Lower extremity edema; Pre-diabetes; Morbid obesity ([facility]); Yeast infection of the skin; Tobacco dependence; Mood disorder ([facility]); Primary hypertension ([facility]); Left hip pain; Open wound of anterior abdominal wall, initial encounter Start: 05-18-2023 Bamboo flowsheet Adelaida Carrion NP Work Phone: [facility] Start: 05-18-2023 Bamboo flowsheet Adelaida Carrion NP Work Phone: [facility] Start: 05-18-2023 End: 05-18-2023 Patient encounter procedure Adelaida Carrion NP Work Phone: [facility] Start: 03-23-2023 End: 03-23-2023 Admission to same day surgery center Adelaida Carrion Work Phone: [facility] Work Phone: Start: 03-23-2023 End: 03-23-2023 ambulatory Adelaida Carrion Work Phone: [facility] Work Phone: Start: 02-12-2023 End: 02-12-2023 ambulatory Jace Graham Other [employer] Other Start: 02-12-2023 Telephone encounter Jace Haney Communications Planner Start: 12-19-2022 End: 12-19-2022 ambulatory Rosemary Kirkland Other [employer] Other Start: 12-19-2022 Office outpatient ne w 10 minutes Rosemary Kirkland [facility] Care José Miguel Start: 11-17-2022 End: 11-20-2022 Evaluation and management of inpatient Adelaida Sheyla Work Phone: [facility] Work Phone: Start: 09-04-2022 ambulatory ARIAN Banegas Facili ty:H1 Start: 08-26-2022 ambulatory NARENDRANATH LAKSHMIPATHY . Facility:H1 Start: 08-08-2022 End: 08-09-2022 ambulatory KILN OPERATOR ADELAIDA SHEYLA Facility:H1 Start: 07-25-2022 End: 07-26-2022 ambulatory KILN OPERATOR ADELAIDA SHEYLA Facility:H1 Start: 07-15-2022 End: 07-15-2022 ambulatory NARENDRANATH LAKSHMIPATHY . Facility:H1 Start: 07-11-2022 ambulatory NARENDRANATH LAKSHMIPATHY . Facility:H1 Start: 06-26-2022 End: 06-27-[address] FINA NIXON . Facility:H1 Start: 06-11-2022 ambulatory KILN OPERATOR ADELAIDA SHEYLA Facil ity:H1 Start: 05-21-2022 End: 06-11-2022 ambulatory KILN OPERATOR ADELAIDA SHEYLA Facility:H1 Start: 05-08-2022 End: 05-09-2022 ambulatory KILN OPERATOR ADELAIDA SHEYLA Facility:H1 Start: 04-28-2022 End: 04-28-2022 ambulatory KILN OPERATOR ADELAIDA SHEYLA Facility:H1 Start: 04-03-2022 End: 04-04-[address] FINA NIXON . Facility:H1 Start: 03-19-2022 End: 03-20-2022 ambulatory KILN OPERATOR ADELAIDA SHEYLA Facility:H1 Start: 02-20-2022 End: 02-20-2022 ambulatory GILMER NEVES Facility:H1 Start: 01-10-2022 End: 02-12-2022 ambulatory BRIDGETTE MACEDO Facility:H1 Start: 01-02-2022 End: 01-03-[address] FINA NIXON . Facility:H1 Start: 01-01-2022 End: 01-02-2022 ambulatory BRIDGETTE MACEDO Facility:H1 Start: 12-16-2021 End: 12-16-2021 ambulatory KILN OPERATOR ADELAIDA SHEYLA Facility:H1 Start: 11-21-2021 End: 11-22-[address] DOCTOR BERGERON Facility:H1 Start: 10-03-2021 End: 10-04-[address] FINA NIXON . Facility:H1 Start: 09-19-[address] FINA NIXON . Faci lity:H1 Start: 09-12-2021 End: 09-12-2021 ambulatory KILN OPERATOR ADELAIDA CARRION Facility:H1 Start: 08-20-2021 End: 08-20-[address] FINA NIXON . Facility:H1 Start: 07-02-2018 End: 07-03-2018 Patient encounter procedure SUKI ESCALANTE Facility:[facility] C Procedures Date Procedure Procedure Detail Performing Clinician Start: 11-14-2024 IGP,APTIMA HPV,AGE GDLN Adelaida Carrion DRYWALL INSTALLER Work Phone: Start: 10-27-2024 Radiologic examinati on knee 3 views Michel Pocos DO Work Phone: Start: 09-29-2024 Radex hips bilateral with pelvis 2 views Generic External Data Provider Start: 09-26-2024 CT LUNG SCREENING LOW DOSE Adelaida Carrion DRYWALL INSTALLER Work Phone: Start: 09-26-2024 MM TOMOSYNTHESIS SCR EENING BI Adelaida Sheyla DRYWALL INSTALLER Work Phone: Start: 09-26-2024 XR SHOULDER RT MIN 2V G eneric External Data Provider Start: 09-26-2024 Mammography Adelaida Jayden ramos DRYWALL INSTALLER Work Phone: Start: 08-16-2024 Hemoglobin glycosylated a1c Adelaida Sheyla DRYWALL INSTALLER Work Phone: Start: 03-02-2024 BLOOD CULTURE 1 Generic External Data Provider Start: 02-16-2024 IGP,APTIMA HPV,AGE GDLN Adelaida Carrion DRYWALL INSTALLER Work Phone: Start: 01-28-2024 Urnls dip stick/tabl et rgnt non-auto w/o micrscp Adelaida Carrion DRYWALL INSTALLER Work Phone: Start: 01-21-2024 MHPT CULT,URINE Generic External Data Provider Start: 01-05-2024 ALL BASIC METABOLIC PANEL Adelaida Carrion DRYWALL INSTALLER Work Phone: Start: 09-18-2023 Mammography Adelaida Jayden ramos DRYWALL INSTALLER Work Phone: Start: 03-23-2023 Screening colonoscopy L oneal Sheyla Work Phone: Start: 03-23-2023 Colonoscopy Adelaida Merrysherine rachel DRYWALL INSTALLER Work Phone: Start: 09-15-2022 Mammography Adelaida Carpenter rachel DRYWALL INSTALLER Work Phone: Start: 08-28-2022 Microscopic observat ion [Identifier] in Cervix by Cyto stain Adelaidamyrna Carrion DRYWALL INSTALLER Work Phone: Start: 07-02-2018 ANESTH KNEE ARE[facility] SURGERY CHAPARRITA HENDRICKS Start: 07-02-2018 REMOVAL OF SUPPORT IMPLANT SUKI EBRAHEIM Start: 07-02-2018 TREAT KNEECAP FRACTURE SUKI EBRAHEIM Plan of Treatment Date Care Activity Detail Author Start: 03-23-2033 Screening for malign ant neoplasm of colon [facility] Start: 09-26-2025 Screening for malign ant neoplasm of breast Mammogram [facility] Start: 09-26-2025 Screening for malign ant neoplasm of lung Lung Cancer Screening Shared Decision Making [facility] Comment on above: Postponed from 12/05 (Other Medical Reasons) Start: 08-28-2025 Screening for malign ant neoplasm of cervix [facility] Healthcare Start: 02-15-2025 Medicare Annual Well ness (AWV) Medicare Annual Wellness (AWV) [facility] Start: 02-13-2025 End: 02-13-2025 Patient encounter procedure 02/13/2025 9:40 AM EST Office Visit [facility] [address] [place] [address] Adelaida Carrion NP [address] [place] [phone] [facility] Start: 2024 Influenza vaccination Influenza Vacc ine (#1) [facility] Start: 11-18-2024 End: 11-18-2025 XR Chest 2 Views XR chest 2 views Imaging Routine Preoperative testing Expected: 11/18/2024 (Approximate), Expires: 11/18/2025 [facility] Work Phone: Comment on above: Expected: 11/18/2024 (Approximate), Expires: 11/18/2025 Start: 11-18-2024 End: 11-18-2024 [facility] Comment on above: Arrived Start: 11-17-2024 End: 11-17-2024 Professional / ancillary services management 11/17/2024 8:45 AM EDT [facility]illary [facility] [address] [place] [place] [phone] [facility] Start: 11-14-2024 End: 11-14-2025 25-hydroxyvitamin D3 [Mass/volume] in Serum or Plasma Vitamin D 25 hydroxy Lab Routine Chronic kidney disease, stage 3a ([facility]) Expected: 11/14/2024 (Approximate), Expires: 11/14/2025 [facility] Comment on above: Expected: 11/14/2024 (Approximate), Expires: 11/14/2025 Start: 11-14-2024 End: 11-14-2025 CBC W Auto Differential panel - Blood CBC and differential Lab Routine Anemia, unspecified type Expected: 11/14/2024 (Approximate), Expires: 11/14/2025 [facility] Comment on above: Expected: 11/14/2024 (Approximate), Expires: 11/14/2025 Start: 11-14-2024 End: 11-14-2025 Comprehensive metabolic 2000 panel - Serum or Plasma Comprehensive metabolic panel Lab Routine Primary hypertension Bilateral lower extremity edema Osteoporosis, unspecified osteoporosis type, unspecified pathological fracture presence Chronic kidney disease, stage 3a (CMS-HCC) Pre-diabetes Expected: 11/14/2024 (Approximate), Expires: 11/14/2025 [facility] Comment on above: Expected: 11/14/2024 (Approximate), Expires: 11/14/2025 Start: 11-14-2024 End: 11-14-2025 Lipid 1996 panel - Serum or Plasma Lipid panel Lab Routine Pre-diabetes Expected: 11/14/2024 (Approximate), Expires: 11/14/2025 [facility] Comment on above: Expected: 11/14/2024 (Approximate), Expires: 11/14/2025 Start: 11-14-2024 End: 11-14-2025 Microalbumin/Creatinine panel in random Urine Microalbumin / creatinine, urine ratio Lab Routine Primary hypertension Pre-diabetes Expected: 11/14/2024 (Approximate), Expires: 11/14/2025 [facility] Comment on above: Expected: 11/14/2024 (Approximate), Expires: 11/14/2025 Start: 11-14-2024 End: 11-14-2025 THIN PREP TIS PAP AND HR HPV DNA THIN PREP TIS PAP AND HR HPV DNA Pathology and Cytology Routine Well woman exam with routine gynecological exam Expected: 11/14/2024 (Approximate), Expires: 11/14/2025 [facility] Work Phone: Comment on above: Expected: 11/14/2024 (Approximate), Expires: 11/14/2025 Start: 11-14-2024 End: 11-14-2025 Urinalysis complete panel - Urine Urinalysis with reflex microscopic (clean catch) Lab Routine Primary hypertension Pre-diabetes Expected: 11/14/2024 (Approximate), Expires: 11/14/2025 [facility] Comment on above: Expected: 11/14/2024 (Approximate), Expires: 11/14/2025 Start: 11-14-2024 End: 11-14-2024 Patient encounter procedure [facility] Comment on above: Morbid (severe) obes ity due to excess calories ([facility]) (Primary Dx); Well woman exam with routine gynecological exam; Primary hypertension ; Anemia, unspecified type; Bilateral lower extremity edema; Osteoporosis, unspecified osteoporosis type, unspecified pathological fracture presence ; Chronic kidney disease, stage 3a ([facility]); Pre-diabetes Start: 10-13-2024 End: 10-13-2025 DXA Skeletal system Views for bone density DEXA bone density Imaging Routine Osteoporosis, unspecified osteoporosis type, unspecified pathological fracture presence Expected: 10/13/2024 (Approximate), Expires: 10/13/2025 [facility] Healthcare Work Phone: Comment on above: Expected: 10/13/2024 (Approximate), Expires: 10/13/2025 Start: 10-13-2024 End: 10-13-2024 Patient encounter procedure 10/13/2024 9:00 AM EDT Office Visit [facility] [address] [place] [phone] Adelaida Carrion NP [address] [place] [address] Arrived [facility] Comment on above: Arrived Start: 09-22-2024 End: 09-22-2024 Patient encounter procedure 09/22/2024 11:00 AM EDT Office Visit [facility] [address] [place] [phone] Rachel Sahni PA [address] [place] [address] [facility] Start: 09-17-2024 Screening for malign ant neoplasm of breast Mammogram [facility] Start: 08-16-2024 End: 08-16-2025 CT Chest for screening WO contrast CT lung screening low dose Imaging Routine Former cigarette smoker Expected: 08/16/2024 (Approximate), Expires: 08/16/2025 [facility] Comment on above: Expected: 08/16/2024 (Approximate), Expires: 08/16/2025 Start: 08-16-2024 End: 10-16-2025 MG Breast - bilateral Screening Bilateral screening mammogram Imaging Routine Encounter for screening mammogram for malignant neoplasm of breast Expected: 08/16/2024 (Approximate), Expires: 10/16/2025 [facility] Healthcare Work Phone: Comment on above: Expected: 08/16/2024 (Approximate), Expires: 10/16/2025 Start: 08-16-2024 End: 08-16-2024 [facility] Comment on above: Bronchitis (Primary Dx); Primary hypertension (CMS/HCC); Bilateral lower extremity edema; Morbid (severe) obesity due to excess calories (CMS/HCC); Pre-diabetes Start: 08-11-2024 End: 08-11-2024 Patient encounter procedure 08/11/2024 10:30 AM EDT Office Visit [facility] [address] [place] [phone] Adelaida Carrion NP [address] [place] [phone] [facility] Start: 07-27-2024 End: 07-27-2024 Patient encounter procedure 07/27/2024 11:30 AM EDT [facility] [address] [place] [phone] Adelaida Carrion NP [address] [place] [phone] Primary hypertension (CMS/HCC) (Primary Dx); Morbid (severe) obesity due to excess calories (CMS/HCC) [facility] Comment on above: Primary hypertension (CMS/HCC) (Primary Dx); Morbid (severe) obesity due to excess calories (CMS/HCC) Start: 07-26-2024 End: 07-26-2024 Patient encounter procedure [facility] Comment on above: Arrived Start: 06-22-2024 End: 06-22-2024 Patient encounter procedure 06/22/2024 11:20 AM EDT Office Visit [facility] [place] [address] [place] [address] Juany Leggett PA [address] [place] [address] [facility] [place] [address] [facility] Start: 06-15-2024 End: 06-15-2024 Patient encounter procedure 06/15/2024 9:20 AM EDT Office Visit [facility] [address] [place] [address] Adelaida Carrion, BRIANA [address] [place] [address] [facility] MANDUJAN[facility] Start: 05-24-2024 End: 05-24-2024 Patient encounter procedure [facility] [place] [facility] Comment on above: Arrived Start: 05-18-2024 Medicare Annual Well ness (AWV) Medicare Annual Wellness (AWV) [facility] Start: 05-12-2024 End: 05-12-2024 Patient encounter procedure [facility] Comment on above: Primary hypertension (CMS/HCC) (Primary Dx); Chronic kidney disease, stage 3a (HCC) (CMS/HCC); Morbid (severe) obesity due to excess calories (CMS/HCC); Body mass index (BMI) 45.0-49.9, adult (CMS/HCC); OSMANY (obstructive sleep apnea); Hemiparesis, right (CMS/HCC); Gastroesophageal reflux disease, unspecified whether esophagitis present; Metabolic encephalopathy Start: 04-07-2024 End: 04-07-2024 Patient encounter procedure 04/07/2024 12:30 PM EST Office Visit [facility] [address] [phone] [facility] Start: 04-04-2024 End: 04-04-2024 Patient encounter procedure 04/04/2024 1:20 PM EST Office Visit [facility] [address] [place] [address] Adelaida Carrion, BRIANA [address] [place] [address] [facility] Start: 03-22-2024 End: 03-22-2024 Clinical Support 03/22/2024 10:00 AM EST Clinical Support [facility] [place] [facility] [address] [address] [place] [phone] [facility] [place] [address] Start: 03-16-2024 End: 03-16-2024 Patient encounter procedure [facility] Comment on above: Metabolic encephalop athy (Primary Dx); OSMANY (obstructive sleep apnea); Morbid obesity (CMS/HCC); Bilateral lower extremity edema; Tobacco dependence; Bipolar disorder with severe depression (CMS/HCC); At risk for polypharmacy; Anxiety Start: 03-14-2024 End: 03-14-2024 Patient encounter procedure 03/14/2024 10:00 AM EST Office Visit [facility] [address] [address] [place] [phone] David Foster, PhD [address] [place], [place] [phone] [facility] Start: 03-11-2024 End: 03-11-2025 EEG 2 Hour Routine EEG 2 Hour Routine Neurology Routine Altered mental status, unspecified altered mental status type Expected: 03/11/2024 (Approximate), Expires: 03/11/2025 [facility] Work Phone: Comment on above: Expected: 03/11/2024 (Approximate), Expires: 03/11/2025 Start: 03-10-2024 End: 03-10-2024 Patient encounter procedure 03/10/2024 3:40 PM EST Office Visit [facility] [address] [place] [phone] Rachel Sahni PA [address] [place], [place] [phone] [facility] Start: 03-01-2024 End: 03-01-2024 Patient encounter procedure 03/01/2024 12:00 PM EST Office Visit [facility] [address] [place] [address] Juany Leggett PA [address] [place] [address] [facility] [address] Start: 02-29-2024 End: 02-29-2024 Patient encounter procedure 02/29/2024 2:40 PM EST Office Visit [facility] [place] [address] [place] [phone] Sonam Brown, DRYWALL INSTALLER [address] [place] [phone] [facility] [place] [address] [facility] Start: 02-16-2024 End: [...] procedure 02/16/2024 11:30 AM EST [facility] [address] [place] [phone] Adelaida Carrion NP [address] [place] [address] [facility] Start: 02-04-2024 Influenza vaccination Influenza Vacc ine (#1) [facility] Comment on above: Postponed from 12/05 (Patient Does Not Have Time) Start: 01-28-2024 End: 01-27-2025 URINARY TRACT INFECTION (HTRX) URINARY TRACT INFECTION (HTRX) Lab Routine Acute cystitis without hematuria Expected: 01/28/2024 (Approximate), Expires: 01/27/2025 [facility] Work Phone: Comment on above: Expected: 01/28/2024 (Approximate), Expires: 01/27/2025 Start: 01-28-2024 End: 01-28-2024 Patient encounter procedure [facility] Comment on above: Tobacco dependence ( Primary [...] 12/09/2023 10:30 AM EDT Office Visit [facility] [address] [place] [address] Juany Caballero NP [address] [place], [place] [facility] Start: 12-08-2023 End: 12-08-2023 Patient encounter procedure 12/08/2023 3:20 PM EDT Office Visit [facility] [address] [place] [phone] Sonam Brown NP [address] [place] [address] [facility] Start: 09-16-2023 Screening for malign ant neoplasm of breast Mammogram [facility] Start: 08-17-2023 End: 08-17-2023 Patient encounter procedure 08/17/2023 9:20 AM EDT Office Visit [facility] [address] [place] [phone] Adelaida Carrion NP [address] [place] [phone] [facility] Start: 05-22-2023 End: 05-22-2023 Patient encounter procedure 05/22/2023 8:45 AM EST Office Visit [facility] [address] [place] [address] Travon Hines, PA [address] [place] [address] [facility] Start: 05-18-2023 End: 05-18-2023 Patient encounter procedure 05/18/2023 4:30 PM EST Office Visit [facility] [address] [place] [phone] Adelaida Carrion, DRYWALL INSTALLER [address] [place] [phone] Arrived [facility] Comment on above: Arrived Start: 05-18-2023 End: 05-18-2024 XR Hip - left 3 Views XR hip left 2 or 3 views Imaging Routine Left hip pain Expected: 05/18/2023 (Approximate), Expires: 05/18/2024 [facility] Work Phone: Comment on above: Expected: 05/18/2023 (Approximate), Expires: 05/18/2024 Start: 03-23-2023 [facility] Start: 11-20-2022 [facility] Start: 11-18-2022 Referral to clinical cranberry grower [facility] Start: 11-17-2022 Hospital admission [facility] Start: 11-17-2022 [facility] Start: 12-06-1991 Screening for malign ant neoplasm of cervix HPV/Cotest [facility] Start: 1960 Medicare Annual Well ness (AWV) Medicare Annual Wellness (AWV) [facility] Start: 1961 Screening for malign ant neoplasm of colon [facility] Start: 1960 Screening for malign ant neoplasm of lung Lung Cancer Screening Shared Decision Making [facility] BLOOD CULTURE 1 BLOOD CULTURE 1 Lab Routine 03/02/2024 3:20 AM EST [facility] Patient Education [facility] Work Phone: Patient referral [facility] Work Phone: XR Knee - right 3 Views XR knee 3 views right Imaging Routine Right knee pain, unspecified chronicity 10/27/2024 8:18 AM EDT [facility] Work Phone: [facility] Immunizations Immunization Date Immunization Notes Care Provider Parker stevens 01-28-2024 Influenza, injectabl e, Madin Nevaeh Canine Kidney, preservative free, quadrivalent Adelaida Aichholz DRYWALL INSTALLER Work Phone: [facility] 01-28-2024 influenza virus vaccine, unspecified formulation Adelaida Aichholz DRYWALL INSTALLER Work Phone: [facility] 08-17-2023 zoster vaccine recombinant Adelaida Aichholz DRYWALL INSTALLER Work Phone: [facility] 02-13-2023 influenza, injectabl e, quadrivalent, preservative free Adelaida Aichholz DRYWALL INSTALLER Work Phone: [facility] 02-13-2023 SARS-COV-2 (COVID-19 ) vaccine, mRNA, spike protein, LNP, PF, 50 mcg/0.5 mL Adelaida Aichholz DRYWALL INSTALLER Work Phone: [facility] 02-13-2023 influenza virus vaccine, unspecified formulation Adelaida Aichholz DRYWALL INSTALLER Work Phone: [facility] 02-19-2022 diphtheria, tetanus toxoids and pertussis vaccine Adelaida Aichholz DRYWALL INSTALLER Work Phone: [facility] 03-02-2021 Moderna SARS-CoV-2 Vaccination Adelaida Aichholz DRYWALL INSTALLER Work Phone: [facility] 08-24-2020 Moderna SARS-CoV-2 Vaccination Adelaida Aichholz DRYWALL INSTALLER Work Phone: [facility] 07-27-2020 Moderna SARS-CoV-2 Vaccination Adelaida Aichholz [employer] INSTALLER Work Phone: [facility] 05-28-2018 influenza, injectabl e, quadrivalent, preservative free Adelaida Aichholz Work Phone: [facility] 09-01-2018 pneumococcal conjuga te vaccine, 13 valent Adelaida Carrion NP Work Phone: [facility] Payers Date Payer Category Payer Medicare [id number] 2022 Self-pay [id number] 2022 Medicare [id number] 2022 Medicare (Managed Care) [facility] MEDIC[facility] [id number] 2008 Unknown [id number] 1961 Unknown [id number] 2.16.840.1.480983.3.579.2 .647 1961 Unknown [id number] 2.16.840.1.554154.3.579.2 .593 1961 Unknown [id number] 2.16.840.1.195317.3.579.2 .593 1961 Unknown [id number] 2.16.840.1.177472.3.579.2 .593 1961 Unknown [id number] 2.16.840.1.274108.3.579.2 .593 1961 Unknown [id number] 2.16.840.1.249555.3.579.2 .593 1961 Unknown [id number] 2.16.840.1.041011.3.579.2 .593 1961 Unknown [id number] 2.16.840.1.200192.3.579.2 .593 1961 Unknown [id number] 2.16.840.1.599851.3.579.2 .593 1961 Unknown [id number] 2.16.840.1.196136.3.579.2 .593 1961 Unknown [id number] 2.16.840.1.398835.3.579.2 .593 1961 Unknown [id number] 2.16.840.1.547862.3.579.2 .593 1961 Unknown [id number] 2.16.840.1.150022.3.579.2 .593 1961 Unknown [id number] 2.16.840.1.442837.3.579.2 .593 1961 Unknown [id number] 2.16.840.1.704590.3.579.2 .593 1961 Unknown [id number] 2.16.840.1.521583.3.579.2 .593 1961 Unknown [id number] 2.16.840.1.101968.3.579.2 .593 1961 Unknown [id number] 2.16.840.1.739297.3.579.2 .593 1961 Unknown [id number] 2.16.840.1.659796.3.579.2 .593 1961 Unknown [id number] 2.16.840.1.863116.3.579.2 .593 1961 Unknown [id number] 2.16.840.1.229952.3.579.2 .593 1961 Unknown [id number] 2.16.840.1.228552.3.579.2 .593 1961 Unknown [id number] 2.16.840.1.726533.3.579.2 .593 1961 Unknown [id number] 2.16.840.1.066514.3.579.2 .593 1961 Unknown [id number] 2.16.840.1.886113.3.579.2 .593 1961 Unknown [id number] 2.16.840.1.862545.3.579.2 .1286 1961 Unknown [id number] 2.16.840.1.772763.3.579.2 .196 1961 Unknown [id number] 2.16.840.1.108811.3.579.2 .196 1961 Unknown [id number] 2.16.840.1.283141.3.579.2 .196 1961 Unknown [id number] 2.16.840.1.147097.3.579.2 .196 1961 Unknown [id number] 2.16.840.1.079013.3.579.2 .196 1961 Unknown [id number] 2.16.840.1.908704.3.579.2 .196 1961 Unknown [id number] 2.16.840.1.014043.3.579.2 .196 1961 Unknown [id number] 2.16.840.1.750068.3.579.2 .1259 1961 Unknown [id number] 2.16.840.1.535150.3.579.2 .1259 1961 Unknown [id number] 2.16.840.1.015079.3.579.2 .1259 1961 Unknown [id number] 2.16.840.1.107114.3.579.2 .1259 1961 Unknown [id number] 2.16.840.1.921416.3.579.2 .1258 1961 Unknown [id number] 2.16.840.1.231336.3.579.2 .1258 1961 Unknown [id number] 2.16.840.1.041888.3.579.2 .1258 1961 Unknown [id number] 2.16.840.1.505128.3.579.2 .1258 1961 Unknown [id number] 2.16.840.1.230606.3.579.2 .1258 1961 Unknown [id number] 2.16.840.1.899998.3.579.2 .1258 1961 Unknown [id number] 2.16.840.1.395711.3.579.2 .1258 1961 Unknown [id number] 2.16.840.1.563726.3.579.2 .1258 1961 Unknown [id number] 2.16.840.1.919925.3.579.2 .1258 1961 Unknown [id number] 2.16.840.1.026768.3.579.2 .1258 1961 Unknown [id number] 2.16.840.1.703833.3.579.2 .1258 1961 Unknown [id number] 2.16.840.1.929958.3.579.2 .1258 1961 Unknown [id number] 2.16.840.1.563321.3.579.2 .1258 1961 Unknown [id number] 2.16.840.1.653842.3.579.2 .1258 1961 Unknown [id number] 2.16.840.1.333862.3.579.2 .1258 1961 Unknown [id number] 2.16.840.1.532498.3.579.2 .1259 1961 Unknown [id number] 2.16.840.1.243810.3.579.2 .1259 1961 Unknown [id number] 2.16.840.1.069034.3.579.2 .1259 1959 Medicare [id number] 1959 Unknown [id number] Private Health Insurance [facility] [id number] Unknown [id number] 2.16.840.1.683308.3.579.2 .531 Unknown [id number] 2.16.840.1.478130.3.579.2 .531 Social History Date Type Detail Facility Start: 11-18-2022 End: 10-14-2023 Tobacco smoking status [facility] Ex-smoker (finding) [facility] Start: 1960 Sex Assigned At Female [facility] Start: 03-25-2023 End: 08-16-2023 Sex Assigned At [facility] Start: 04-06-1976 End: 04-06-2016 History of tobacco use Current smoker [facility] Start: 04-06-1976 End: 04-06-2016 History of tobacco use Cigarette Smoker [facility] Start: 02-09-2023 End: 08-16-2023 Cigarettes smoked current (pack per day) - Reported 1 [facility] Start: 02-09-2023 End: 10-14-2023 Tobacco use and exposure Smokeless tobacco non-user [facility] Start: 05-18-2023 End: 11-18-2024 Alcohol intake Lifetime non-drinker (finding) [facility] Start: 11-13-2022 Alcohol Comment caffeine intake: 1-2 cups per day. [facility] Start: 10-01-2022 Gender identity [...] Facility 11-20-2022 Functional status Patient at Baseline [facility] Work Phone: Mental Status Date Assessment Result Facility 11-20-2022 Cognitive function Cognitive Sta tus Patient is Progressing Toward Baseline [facility] Work Phone: Clinical Notes 10-03-2021 to 11-18-2024 Rupal Patricio - 11/18/2024 10:15 AM Padmaja Carrion NP - 11/14/2024 10:30 AM Padmaja Carrion NP - 11/14/2024 6:38 AM Padmaja Carrion NP - 11/14/2024 6:38 AM EDTPatient Instructions Note Date & Type Note Facility 11-18-2024 History of Present illness Narrative Images from the original note were not included. GENERAL HISTORY AND PHYSICAL: NAME: Michelle Be : 1960 CHIEF COMPLAINT: Right knee pain, ongoing, review of MRI. HISTORY OF PRESENT ILLNESS: This is a 63 y.o. female who presents for a pre-op H&P. Michelle returns here today for repeat evaluation of her knee. She continues to struggle with pain and difficulty. She reports no new or interval symptoms. She has been advancing her activities. She did tolerate the MRI without event. PAST MEDICAL HISTORY: Past Medical History: Diagnosis Date Abnormal mammogram [...] S/P bariatric surgery Shingles Slurred speech Stroke ([facility]) 2018 Tenosynovitis, de Quervain Thoracic back pain, unspecified back pain laterality, unspecified chronicity Tobacco dependence Vertigo, benign paroxysmal Yeast infection of the skin 05/18/2023 PAST SURGICAL HISTORY: Past Surgical History: Procedure Laterality Date APPENDECTOMY BREAST LUMPECTOMY Right SECTION, LOW TRANSVERSE x2 CHOLECYSTECTOMY COLONOSCOPY 2012 DENTAL IMPLANT DILATION AND CURETTAGE OF UTERUS x2 HIATAL HERNIA REPAIR KNEE SURGERY Right 2018 x2 LAMINECTOMY L4/L5 LAPAROSCOPIC GASTRIC BANDING 2008 LUMBAR LAMINECTOMY 1995 OTHER SURGICAL HISTORY hair follicle from scalp TONSILLECTOMY WISDOM TOOTH EXTRACTION WRIST SURGERY Left 10/31/2022 1ST DORSAL COMPARTMENT RELEASE SOCIAL HISTORY: Social History Occupational History Not on file Tobacco Use Smoking status: Former Current packs/day: 0.00 Average packs/day: 1 pack/day for 40.0 years (40.0 ttl pk-yrs) Types: Cigarettes Start date: 1976 Quit date: 2017 Years since quittin.6 Smokeless tobacco: Never Substance and Sexual Activity Alcohol use: Never Comment: caffeine intake: 1-2 cups per day. Drug use: Never Sexual activity: Not on file ALLERGIES: Allergies Allergen Reactions Eszopiclone Hallucinations and Anaphylaxis Altered mental status and non responsive Penicillins Anaphylaxis Tetracycline Hives and Unknown Levetiracetam Hallucinations and Other Milnacipran Hallucinations, Other and Unknown Prochlorperazine Unknown and Other Wound Dressing Adhesive Rash and Unknown Other Other MEDICATIONS: Current Outpatient Medications Medication Instructions amLODIPine (NORVASC) 10 mg, Oral, Daily biotin 5 MG tablet Pt taking OTC ([employer]) Calcium Citrate-Vitamin D (CITRACAL + D PO) Pt taking OTC [employer]) Cannabinoids (medical cannabis) 1 each carvedilol (COREG) [...] Daily Magnesium 400 MG capsule Pt taking [employer]) Melatonin 12 MG tablet 1 tablet, Nightly Multiple Vitamins-Minerals (BARIATRIC MULTIVITAMINS/IRON PO) Pt taking OTC ([employer]) omeprazole (PRILOSEC) 20 mg, Oral, Daily before breakfast rOPINIRole (REQUIP) 3 mg, Oral, Nightly spironolactone (ALDACTONE) 50 mg, Oral, Daily tiZANidine (ZANAFLEX) 4 mg, Every 8 hours PRN traZODone (DESYREL) 150 mg, Nightly Vraylar 4.5 mg, Daily REVIEW OF SYSTEMS: The review of systems, history and current medications list are all reviewed today. Vitals: Visit Vitals Ht 5' 4 Wt 277 lb BMI 47.55 kg/m Smoking Status Former BSA 2.39 m PHYSICAL EXAM: Her orthopedic exam does reveal the morbid obesity unchanged. The incision is benign. Gentle arc of motion of the knee is guarded. She does have tenderness both medial and lateral, but greatest effect is lateral. The calf and thigh are supple. She does have pain with medial and lateral Chela testing. The knee is stable with varus and valgus. Examination of the contralateral left knee reveals arc of motion without difficulty. Varus and valgus stress testing is stable. The calf and thigh are supple. X-ray, MRI is reviewed and does show significant change in the anterior horn of the lateral meniscus, clearly signifying a tear. She does have a little bit of change posterior horn medial meniscus, although not clearly identified and coinciding with meniscal pathology. She does have some osteoarthritic change. There is a small popliteal cyst. No fracture. She does have patellofemoral arthrosis with prior hardware and manipulation. Surgical History and Physical: GENERAL AND PSYCHOLOGICAL: The patient is alert and oriented for age. HEAD AND E.E.N.T.: The skull is normocephalic. There is no mass or sign of trauma. NECK: The neck is supple. There is good range of motion. There is no mass or adenopathy appreciated. The thyroid is not enlarged. CARDIAC: The heart is regular. There is no murmur or ectopy appreciated. LUNGS: Inspiratory and expiratory excursions are symmetrical. The lung yepez are clear in all quadrants. ABDOMEN: The texture is soft. Bowel sounds are heard well in all quadrants. There is no tenderness to palpation. There is no organomegaly appreciated. OSTEOPATHIC AND STRUCTURAL: There is no gross evidence of kyphosis, lordosis, scoliosis, or apparent leg length discrepancy, with no acute tissue texture changes in sitting or standing positions. ASSESSMENT: Right knee pain, osteoarthritis, lateral meniscal tear. Morbid obesity. PLAN: The findings are discussed. She would like to move forward with a discussion of knee arthroscopy. This does appear to be clinically indicated and cost effective. We did discuss the fact that this is an excellent choice for the scenario of internal derangement and meniscal pathology and would be less effective for the osteoarthritis. She does voice understanding of this. She would like to move forward. The nature of the findings were discussed at length. Knee arthroscopy was recommended. Imaging studies, pathology and anatomy were reviewed. The patient has failed conservative care and has continued symptomatology with activities of daily living disruption. Knee arthroscopy is warranted. The patient is aware that knee arthroscopy does not cure arthritis. There is a potential of continued pain, stiffness, antalgic gait, infection, infection requiring multiple surgeries with IV antibiotics, nerve, vessel or tendon injury, foot drop, bleeding, anesthesia complications, blood clot, pulmonary embolus, myocardial infarction, arrhythmia, stroke and have all been reviewed. I am personally involved with the informed consent process. Numerous questions were answered. The patient will undergo routine presurgical testing per protocol. I will see the patient back postoperatively for a recheck, sooner if worse. The patient voices verbal understanding and is discharged in stable condition. We did discuss the expectations with regard to recovery and return to function. Routine testing is done based upon age and gender. All of her questions are otherwise answered here today. We will see her back in the postoperative time frame. Follow up letter sent to her primary care physician. Harrison Bryan D.O. Cosigned by Harrison Bryan DO at 11/21/2024 12:22 PM EDT documented in this encounter [facility] 11-14-2024 History of Present illness Narrative Images [...] biotin 5 MG tablet Pt taking OTC ([employer]) Calcium Citrate-Vitamin D (CITRACAL + D PO) Pt taking OTC ([employer]) Cannabinoids (medical cannabis) 1 each carvedilol (COREG) [...] Daily Magnesium 400 MG capsule Pt taking OTC([employer]) Melatonin 12 MG tablet 1 tablet, Nightly Multiple Vitamins-Minerals (BARIATRIC MULTIVITAMINS/IRON PO) Pt taking OTC ([employer]) omeprazole (PRILOSEC) 20 mg, Oral, Daily before [...] Anxiety 05/18/2023 Bipolar disorder with severe depression ([facility]) 05/18/2023 Brain lesion Brain vascular malformation ([facility]) Chronic pain disorder Closed fracture of patella 02/04/2018 Colon polyps Constipation Degenerative cervical disc Degenerative lumbar disc Depression 05/18/2023 Diastolic dysfunction Dizziness 05/18/2023 Dysphagia Fibromyalgia Fibromyalgia Fibromyalgia, primary 2009 Gastrocnemius equinus GERD (gastroesophageal reflux disease) Heart murmur Hematoma of right breast Hemiparesis ([facility]) Hemiparesis, right ([facility]) Hemorrhoid int/external hemorrhoids Hiatal hernia Iron deficiency Left foot pain 03/25/2023 Lower extremity edema Memory loss 2009 Migraine 03/05/2024 Mood disorder mixed mood disorder OSMANY (obstructive sleep apnea) Osteoporosis Overactive bladder Pre-diabetes Primary hypertension 03/25/2023 PTSD (post-traumatic stress disorder) Restless leg Restless leg syndrome 1989 Right knee pain Right sided weakness S/P bariatric surgery Shingles Slurred speech Stroke ([facility]) 2018 Tenosynovitis, de Quervain Thoracic [...] nursing note reviewed. 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 Constitutional: General: She is not [...] Morbid (severe) obesity due to excess calories ([facility]) - Primary Discussed with patient their BMI [...] urine ratio Chronic kidney disease, stage 3a ([facility]) Monitor labs at minimum every year Relevant Orders Comprehensive metabolic panel Vitamin D 25 hydroxy Associated Problem(s): Chronic kidney disease, stage 3a ([facility]) Monitor labs at minimum every year Associated [...] Morbid (severe) obesity due to excess calories ([facility]) Discussed with patient their BMI (actual, verses recommended). We have also discussed lifestyle modifications: attempts to perform physical activity as chronic conditions allow, also to monitor dietary intake: increasing protein/fruits/veggies and lowering carb intake (unless contraindicated). Limit sodas, juices, and sugary drinks. Has had bariatric surgeries in the past documented in this encounter [place] [id number] History of Present illness Narrative Images from [...] biotin 5 MG tablet Pt taking OTC ([employer]) Calcium Citrate-Vitamin D (CITRACAL + D PO) Pt taking OTC ([employer]) Cannabinoids (medical cannabis) 1 each carvedilol (COREG) [...] Daily Magnesium 400 MG capsule Pt taking OTC([employer]) Melatonin 12 MG tablet 1 tablet, Nightly Multiple Vitamins-Minerals (BARIATRIC MULTIVITAMINS/IRON PO) Pt taking OTC ([employer]) omeprazole (PRILOSEC) 20 mg, Oral, Daily before [...] sent to Adelaida Howard. Cosigned by Harrison Bryan DO at 10/28/2024 12:11 PM EDT documented in this encounter [facility] 10-13-2024 History of Present illness Narrative [...] manages your OSMANY: Daniela Associated Problem(s): Disorientation [place] to be related to not using PAP [...] going to have out patient MRI . [place] that she had some encephalopathy with not wearing PAP She is now wearing her pap. Is back to her baseline able to remember words etc. 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 SUBJECTIVE: MEDICATIONS: Current Outpatient Medications Medication Instructions amLODIPine (NORVASC) 10 mg, Oral, Daily biotin 5 MG tablet Pt taking OTC ([employer]) Calcium Citrate-Vitamin D (CITRACAL + D PO) Pt taking OTC ([employer]) carvedilol (COREG) 12.5 mg, Oral, 2 times [...] Daily Magnesium 400 MG capsule Pt taking OTC([employer]) Melatonin 12 MG tablet 1 tablet, Nightly Multiple Vitamins-Minerals (BARIATRIC MULTIVITAMINS/IRON PO) Pt taking OTC ([employer]) omeprazole (PRILOSEC) 20 mg, Oral, Daily before [...] Anxiety 05/18/2023 Bipolar disorder with severe depression ([facility]) 05/18/2023 Brain lesion Brain vascular malformation ([facility]) Chronic pain disorder Closed fracture of patella 02/04/2018 Colon polyps Constipation Degenerative cervical disc Degenerative lumbar disc Depression 05/18/2023 Diastolic dysfunction Dizziness 05/18/2023 Dysphagia Fibromyalgia Fibromyalgia Gastrocnemius equinus GERD (gastroesophageal reflux disease) Heart murmur Hematoma of right breast Hemiparesis ([facility]) Hemiparesis, right ([facility]) Hemorrhoid int/external hemorrhoids Hiatal hernia Iron deficiency Left foot pain 03/25/2023 Lower extremity edema Mood disorder mixed mood disorder OSMANY (obstructive sleep apnea) Osteoporosis Overactive bladder Pre-diabetes Primary hypertension 03/25/2023 PTSD (post-traumatic stress disorder) Restless leg Right knee pain Right sided weakness S/P bariatric surgery Shingles Slurred speech Stroke ([facility]) 2018 Tenosynovitis, de Quervain Thoracic [...] meds: amlodipine, losartan, aldactone Disorientation - Primary [place] to be related to not using PAP [...] MG DR capsule documented in this encounter [facility] 08-16-2024 History of Present illness Narrative [...] biotin 5 MG tablet Pt taking OTC ([employer]) Calcium Citrate-Vitamin D (CITRACAL + D PO) Pt taking OTC ([employer]) carvedilol (COREG) 12.5 mg, Oral, 2 times daily with meals cetirizine (ZYRTEC) 10 mg, Oral, Daily diclofenac (Voltaren) 50 MG EC tablet DULoxetine (CYMBALTA) 60 mg, 2 times daily fluticasone (Flonase) 50 MCG/ACT nasal spray 2 sprays, Each Nostril, Daily gabapentin (NEURONTIN) 300 mg, Oral, 2 times daily, Due now losartan (COZAAR) 100 mg, Oral, Daily Magnesium 400 MG capsule Pt taking OTC([employer]) Melatonin 12 MG tablet 1 tablet, Nightly Multiple Vitamins-Minerals (BARIATRIC MULTIVITAMINS/IRON PO) Pt taking OTC ([employer]) omeprazole (PRILOSEC) 20 mg, Oral, Daily before [...] pain 03/25/2023 Lower extremity edema Mood disorder ([facility]) mixed mood disorder OSMANY (obstructive sleep apnea) Osteoporosis ([facility]) Overactive bladder Pre-diabetes Primary hypertension ([facility]) 03/25/2023 PTSD (post-traumatic stress disorder) ([facility]) Restless leg Right knee pain Right sided weakness S/P bariatric surgery Shingles Slurred speech Stroke ([facility]) 2018 Tenosynovitis, de Quervain [...] device (Completed) Allergic rhinitis Stop cetirizine, order anida Relevant Medications fexofenadine (Naida) 180 MG tablet [...] trelegy 100's resolved documented in this encounter [facility] 08-16-2024 Instructions Adelaida Carrion NP - 08/16/2024 11:30 AM EDT Mammogram and lung cancer CT documented in this encounter [facility] 07-27-2024 History of Present illness Narrative Associated Problem(s): Bronchitis Continue OTC mucus relief meds Will add trelegy for bronchitis 100's #2 samples lot [id number], exp 10/28 Fu if not better No s/s resp distress [facility]- 07/24/24 Bronchitis & Leurisy Medications: [...] with chief complaint of Hospital Follow-up HPI: [facility]- 07/24/24 Bronchitis & Leurisy Medications: [...] biotin 5 MG tablet Pt taking OTC ([employer]) Calcium Citrate-Vitamin D (CITRACAL + D PO) Pt taking OTC ([employer]) carvedilol (COREG) 12.5 mg, Oral, 2 times daily with meals cetirizine (ZYRTEC) 10 mg, Oral, Daily diclofenac (Voltaren) 50 MG EC tablet DULoxetine (CYMBALTA) 60 mg, 2 times daily fluticasone (Flonase) 50 MCG/ACT nasal spray 2 sprays, Each Nostril, Daily gabapentin (NEURONTIN) 300 mg, Oral, 2 times daily, Due now losartan (COZAAR) 100 mg, Oral, Daily Magnesium 400 MG capsule Pt taking OTC([employer]) Melatonin 12 MG tablet 1 tablet, Nightly Multiple Vitamins-Minerals (BARIATRIC MULTIVITAMINS/IRON PO) Pt taking OTC ([employer]) omeprazole (PRILOSEC) 20 mg, Oral, Daily before [...] Anxiety 05/18/2023 Bipolar disorder with severe depression ([facility]) 05/18/2023 Brain lesion Brain vascular malformation Chronic pain disorder Closed fracture of patella 02/04/2018 Colon polyps Constipation Degenerative cervical disc Degenerative lumbar disc Depression ([facility]) 05/18/2023 Diastolic dysfunction Dizziness 05/18/2023 Dysphagia Fibromyalgia Fibromyalgia Gastrocnemius equinus GERD (gastroesophageal reflux disease) Heart murmur Hematoma of right breast Hemiparesis ([facility]) Hemiparesis, right ([facility]) Hemorrhoid int/external hemorrhoids Hiatal hernia Iron deficiency Left foot pain 03/25/2023 Lower extremity edema Mood disorder ([facility]) mixed mood disorder OSMANY (obstructive sleep apnea) Osteoporosis ([facility]) Overactive bladder Pre-diabetes Primary hypertension ([facility]) 03/25/2023 PTSD (post-traumatic stress disorder) ([facility]) Restless leg Right knee pain Right sided weakness S/P bariatric surgery Shingles Slurred speech Stroke ([facility]) 2018 Tenosynovitis, de Quervain [...] meds: amlodipine, losartan documented in this encounter [facility] 07-26-2024 History of Present illness Narrative Images from the original note were not included. Subjective Chief Complaint Patient presents with Altered Mental Status Past Medical History: Diagnosis Date Abnormal mammogram of left breast Achilles tendinitis, right leg Acute gout of right foot, unspecified cause Allergic rhinitis 05/18/2023 Anemia Anxiety 05/18/2023 Bipolar disorder with severe depression ([facility]) 05/18/2023 Brain lesion Brain vascular malformation [...] hypertension ([facility]) 03/25/2023 PTSD (post-traumatic stress disorder) ([facility]) Restless leg Right knee pain Right sided weakness S/P bariatric surgery Shingles Slurred speech Stroke ([facility]) 2018 Tenosynovitis, de Quervain [...] date: 1976 Quit date: 2017 Years since quittin.3 Smokeless tobacco: Never Substance Use Topics Alcohol use: Never Comment: caffeine intake: 1-2 cups per day. Medication Documentation Review Audit Reviewed by Beronica Reyes MA (Radiologist Chief Of Breast Imaging) on 07/26/24 at 1049 Medication Order Taking? Sig Documenting Provider Last Dose Status amLODIPine (Norvasc) 10 MG tablet [id number] Take 1 tablet (10 mg) by mouth Daily Adelaida Carrion NP 06/11/24 235 azithromycin (Zithromax) 250 MG tablet [id number] Day #1: 2 tablets, and Day 2-5: 1 tablet daily Adelaida Carrion NP Active biotin 5 MG tablet [id number] Pt taking OTC ([employer]) Historical ProviderMD Active Calcium Citrate-Vitamin D (CITRACAL + D PO) [id number] Pt taking OTC ([employer]) Historical ProviderMD Active carvedilol (Coreg) 12.5 MG tablet [id number] Take 1 tablet (12.5 mg) by mouth in the morning and 1 tablet (12.5 mg) in the evening. Take with meals. Adelaida Carrion NP 06/11/24 235 cetirizine (ZyrTEC) 10 MG tablet [id number] Take 1 tablet (10 mg) by mouth Daily Adelaida Carrion NP 06/11/24 235 DULoxetine (Cymbalta) [address] capsule [id number] Take 60 mg by mouth in the morning and 60 mg before bedtime. Do not crush or chew.. Active fluticasone (Flonase) 50 MCG/ACT nasal spray [id number] Administer 2 sprays into each nostril Daily Adelaida Carrion NP 06/11/24 235 gabapentin (Neurontin) 300 MG capsule [id number] Take 1 capsule (300 mg) by mouth in the morning and 1 capsule (300 mg) before bedtime. Due now. MAUREEN Akbar Active losartan (Cozaar) 100 MG tablet [id number] Take 1 tablet (100 mg) by mouth Daily Adelaida Carrion NP 06/11/24 235 Magnesium 400 MG capsule [id number] Pt taking OTC([employer]) Historical ProviderMD Active Melatonin 12 MG tablet [id number] Take 1 tablet by mouth at bedtime Active Multiple Vitamins-Minerals (BARIATRIC MULTIVITAMINS/IRON PO) [id number] Pt taking OTC ([employer]) Historical Provider, Active nystatin (Mycostatin) [id number] UNIT/GM powder [id number] Apply 1 application topically in the morning and 1 application before bedtime. Adelaida Carrion NP Active nystatin (Mycostatin) cream [id number] Adelaida Carrion NP Active omeprazole (PriLOSEC) [address] capsule [id number] Take 1 capsule (20 mg) by mouth in the morning. Take before meals. Adelaida Carrion NP 06/11/242358 rOPINIRole (Requip) 2 MG tablet [id number] Take 1 tablet (2 mg) by mouth at bedtime MAUREEN Akbar Active spironolactone (Aldactone) 50 MG tablet [id number] Take 1 tablet (50 mg) by mouth Daily Adelaida Carrion NP 06/11/242358 tiZANidine (Zanaflex) 4 MG tablet [id number] Take 4 mg by mouth every 8 (eight) hours if needed for muscle spasms 1-2 tablets Adelaida Carrion NP Active traZODone (Desyrel) 150 MG tablet [id number] Take 150 mg by mouth at bedtime Active Vraylar 3 MG capsule [id number] Active HPI AMS -weaned Lacosimide -denies any further headaches and dizziness -denies any recent episodes of confusion -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 LUE Strength deltoid, biceps, triceps, wrist extensors, wrist extensors, wrist flexor, furnace unloader strength 5/5. RLE Strength illopsoas, quadriceps, tibialis [...] not all inclusive. Patient was admitted to [facility] from the [facility] on 08/24/2023 with acute respiratory failure and confusion thought to be secondary to metabolic encephalopathy. MOCA 03/01/24 was 26/30. She notes she did speech therapy and responded well to this. She was recently evaluated at [facility] 03/02/2024 for severe encephalopathy. She had brain [...] Averages almost 6 hours a night. ___ [facility] evaluation 02/29/2024: Brain MRI with and without [...] of the brain in July 2019 showed [id number]-umdtkzum white matter changes with the largest area [...] in 2 months documented in this encounter [facility] 05-12-2024 History of Present illness Narrative [...] includes CVA. There is no history of CAD/IN, heart failure or PVD. GERD She reports [...] biotin 5 MG tablet Pt taking OTC ([employer]) Calcium Citrate-Vitamin D (CITRACAL + D PO) [...] Daily Magnesium 400 MG capsule Pt taking OTC([facility]) Melatonin 12 MG tablet 1 tablet, Nightly Multiple Vitamins-Minerals (BARIATRIC MULTIVITAMINS/IRON PO) Pt taking OTC ([facility]) nystatin (Mycostatin) [id number] UNIT/GM powder 1 application , 2 times [...] Anxiety 05/18/2023 Bipolar disorder with severe depression ([facility]) 05/18/2023 Brain lesion Brain vascular malformation Chronic pain disorder Closed fracture of patella 02/04/2018 Colon polyps Constipation Degenerative cervical disc Degenerative lumbar disc Depression (CMS/HCC) 05/18/2023 Diastolic dysfunction Dizziness 05/18/2023 Dysphagia Fibromyalgia Fibromyalgia Gastrocnemius equinus GERD (gastroesophageal reflux disease) Heart murmur Hematoma of right breast Hemiparesis (CMS/[facility]) Hemiparesis, right (CMS/[facility]) Hemorrhoid int/external hemorrhoids Hiatal hernia Iron deficiency Left foot pain 03/25/2023 Lower extremity edema Mood disorder ([facility]) mixed mood disorder OSMANY (obstructive sleep apnea) Osteoporosis (CMS/[facility]) Overactive bladder Pre-diabetes Primary hypertension ([facility]) 03/25/2023 PTSD (post-traumatic stress disorder) ([facility]) Restless leg Right knee pain Right sided weakness S/P bariatric surgery Shingles Slurred speech Stroke ([facility]) 2018 Tenosynovitis, de Quervain [...] losartan Chronic kidney disease, stage 3a (HCC) (CMS/[facility]) Monitor labs at minimum every year Body mass index (BMI) 45.0-49.9, adult ([facility]) Other Visit Diagnoses Essential (primary) hypertension ([facility]/HCC) Relevant Medications amLODIPine (Norvasc) 10 MG [...] Morbid (severe) obesity due to excess calories ([facility]) Discussed with patient their BMI (actual, verses recommended). We have also discussed lifestyle modifications: attempts to perform physical activity as chronic conditions allow, also to monitor dietary intake: increasing protein/fruits/veggies and lowering carb intake (unless contraindicated). Limit sodas, juices, and sugary drinks. Has had bariatric surgeries in the past Associated Problem(s): Chronic kidney disease, stage 3a (HCC) ([facility]) Monitor labs at minimum every year Associated Problem(s): GERD (gastroesophageal reflux disease) Recommendations: freq small meals, nothing to eat or drink at least 2 hours prior to bed, limit caffeine, alcohol, as well as spicy foods Meds to limit or avoid if possible: NSAIDS Elevate HOB if possible Current meds: omeprazole Associated Problem(s): Primary hypertension ([facility]) Please check blood pressure daily and record [...] your OSMANY: Daniela Associated Problem(s): Hemiparesis, right ([facility]) Stable with this from prior stroke documented in this encounter [facility] 05-12-2024 Instructions Adelaida Carrion NP - 05/12/2024 10:00 AM EST No changes in meds documented in this encounter [facility] 04-12-2024 Telephone encounter Note 03/10/2024 Continue Gabapentin 300 mg BID for RLS. Continue clonazepam 0.5mg PO BID for RLS. This was decreased during recent hospitalization Continue Vimpat 50mg PO BID for seizure prevention [facility] 04-12-2024 Miscellaneous Notes 03/10/2024 Continue Gabapentin 300 mg BID for RLS. Continue clonazepam 0.5mg PO BID for RLS. This was decreased during recent hospitalization Continue Vimpat 50mg PO BID for seizure prevention documented in this encounter [facility] 04-07-2024 History of Present illness Narrative [...] performance and score on it. Admitted to [facility] from the [facility] on 08/24/2023 with acute respiratory failure and confusion thought to be secondary to metabolic encephalopathy. LTME in August 2023 negative. Recently evaluated at [facility] on 03/02/2024 for severe encephalopathy. Brain MRI [...] any history of alcohol/substance abuse. Reformed smoker. [place] language Sw[place]. Reported relocating from [place] to [place] in 2011. Completed a bachelor's degree. 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 Currently on disability. Resides with of 26 years along with her son, grandson, and 2 dogs. Has 2 children from a prior relationship. MEDICAL HISTORY/MEDICATION: MEDICATIONS: Current Outpatient Medications Medication Instructions amLODIPine (NORVASC) 10 mg, Oral, Daily biotin 5 MG tablet Pt taking OTC ([employer]) Calcium Citrate-Vitamin D (CITRACAL + D PO) Pt taking OTC ([employer]) carvedilol (COREG) 12.5 mg, Oral, 2 times [...] Daily Magnesium 400 MG capsule Pt taking OTC([facility]) Melatonin 12 MG tablet 1 tablet, Oral, Nightly Multiple Vitamins-Minerals (BARIATRIC MULTIVITAMINS/IRON PO) Pt taking OTC ([facility]) nystatin (Mycostatin) [id number] UNIT/GM powder 1 application , 2 times [...] design >16th %ile. Motor/Speed of Processing: Right-handed. 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 Recognition discriminability 93rd [...] Please contact me with any questions at [phone]. documented in this encounter [facility] 03-16-2024 History of Present illness Narrative Associated Problem(s): Right bundle branch block (RBBB) determined by electrocardiography At this point I will look at her past EKG's, She has had ECHO in past No symptoms, at this time I do not think that further testing is needed Pt is having a memory test done on apr 07 [place] Pt is anxious and afraid-pt father had dementia Spironolactone pt is asking for 50mg instead of 25mg Images from the original note were not included. Michelle Be is a 63 y.o. female presents with chief complaint of Anxiety HPI: Here for hospital follow up: AMS She was evaluated at [facility], was seen by Neurology reviewed notes from [...] Daily Magnesium 400 MG capsule Pt taking OTC([facility]) Melatonin 12 MG tablet 1 tablet, Oral, Nightly Multiple Vitamins-Minerals (BARIATRIC MULTIVITAMINS/IRON PO) Pt taking OTC ([facility]) nystatin (Mycostatin) [id number] UNIT/GM powder 1 application , 2 times [...] Anxiety 05/18/2023 Bipolar disorder with severe depression ([facility]) 05/18/2023 Brain lesion Brain vascular malformation Chronic pain disorder Closed fracture of patella 02/04/2018 Colon polyps Constipation Degenerative cervical disc Degenerative lumbar disc Depression ([facility]/HCC) 05/18/2023 Diastolic dysfunction Dizziness 05/18/2023 Dysphagia Fibromyalgia Fibromyalgia Gastrocnemius equinus GERD (gastroesophageal reflux disease) Heart murmur Hematoma of right breast Hemiparesis ([facility]) Hemiparesis, right ([facility]) Hemorrhoid int/external hemorrhoids Hiatal hernia Iron deficiency Left foot pain 03/25/2023 Lower extremity edema Mood disorder ([facility]) mixed mood disorder OSMANY (obstructive sleep apnea) Osteoporosis ([facility]) Overactive bladder Pre-diabetes Primary hypertension ([facility]) 03/25/2023 PTSD (post-traumatic stress disorder) ([facility]) Restless leg Right knee pain Right sided weakness S/P bariatric surgery Shingles Slurred speech Stroke ([facility]) 2018 Tenosynovitis, de Quervain [...] to have evaluation documented in this encounter [facility] 03-16-2024 Instructions Adelaida Carrion NP - 03/16/2024 10:00 AM EST Spironolactone: I discontinued the 25mg script for this, sent a new script to [facility], for a 50mg pill, you will take 1 pill daily Memory testing in Apr 2024 Follow up with me in early May, sooner if needed documented in this encounter [facility] 03-16-2024 Telephone encounter Note Yep, sent to [facility]. [facility] 03-16-2024 Miscellaneous Notes Yep, sent to [facility]. Patient calls and states that hospital lowered her requip to 2 mg at bed time. Okay to send as new dosage? documented in this encounter [facility] 03-15-2024 Telephone encounter Note Patient calls and states that hospital lowered her requip to 2 mg at bed time. Okay to send as new dosage? [facility] 03-14-2024 History of Present illness Narrative [...] performance and score on it. Admitted to [facility] from the [facility] on 08/24/2023 with acute respiratory failure and confusion thought to be secondary to metabolic encephalopathy. Previous LTME in August 2023 negative. Recently evaluated at [facility] on 03/02/2024 for severe encephalopathy. Brain MRI [...] any history of alcohol/substance abuse. Reformed smoker. [place] language Swazi. Reported relocating from [place] to [place] in 2011. Completed a bachelors [...] Anxiety 05/18/2023 Bipolar disorder with severe depression ([facility]/HCC) 05/18/2023 Brain lesion Brain vascular malformation [...] S/P bariatric surgery Shingles Slurred speech Stroke ([facility]) 2018 Tenosynovitis, de Quervain Thoracic back pain, unspecified back pain laterality, unspecified chronicity Tobacco dependence Vertigo, benign paroxysmal Yeast infection of the skin 05/18/2023 MEDICATIONS: Current Outpatient Medications Medication Instructions amLODIPine (NORVASC) 10 mg, Oral, Daily biotin 5 MG tablet Pt taking OTC ([facility]) Calcium Citrate-Vitamin D (CITRACAL + D PO) Pt taking OTC ([facility]) carvedilol (COREG) 12.5 mg, Oral, 2 times [...] Daily Magnesium 400 MG capsule Pt taking OTC([facility]) Melatonin 12 MG tablet 1 tablet, Oral, Nightly Multiple Vitamins-Minerals (BARIATRIC MULTIVITAMINS/IRON PO) Pt taking OTC ([facility]) nystatin (Mycostatin) [id number] UNIT/GM powder 1 application , Topical, 2 [...] Please contact me with any questions at [phone]. documented in this encounter [facility] 02-16-2024 History of Present illness Narrative [...] biotin 5 MG tablet Pt taking OTC ([employer]) Calcium Citrate-Vitamin D (CITRACAL + D PO) Pt taking OTC ([employer]) carvedilol (COREG) 12.5 mg, Oral, 2 times [...] Daily Magnesium 400 MG capsule Pt taking OTC([employer]) Melatonin 12 MG tablet 1 tablet, Oral, Nightly Multiple Vitamins-Minerals (BARIATRIC MULTIVITAMINS/IRON PO) Pt taking OTC ([employer]) nystatin (Mycostatin) 537182 UNIT/GM powder 1 application , Topical, 2 [...] Anxiety 05/18/2023 Bipolar disorder with severe depression ([facility]) 05/18/2023 Brain lesion Brain vascular malformation Chronic pain disorder Closed fracture of patella 02/04/2018 Colon polyps Constipation Degenerative cervical disc Degenerative lumbar disc Depression ([facility]/HCC) 05/18/2023 Diastolic dysfunction Dizziness 05/18/2023 Dysphagia Fibromyalgia Fibromyalgia Gastrocnemius equinus GERD (gastroesophageal reflux disease) Heart murmur Hematoma of right breast Hemiparesis ([facility]) Hemiparesis, right ([facility]) Hemorrhoid int/external hemorrhoids Hiatal hernia Iron deficiency Left foot pain 03/25/2023 Lower extremity edema Mood disorder ([facility]) mixed mood disorder OSMANY (obstructive sleep apnea) Osteoporosis ([facility]) Overactive bladder Pre-diabetes Primary hypertension ([facility]) 03/25/2023 PTSD (post-traumatic stress disorder) ([facility]) Restless leg Right knee pain Right sided weakness S/P bariatric surgery Shingles Slurred speech Stroke ([facility]) 2018 Tenosynovitis, de Quervain [...] nursing note reviewed. 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 Constitutional: General: She is not [...] chronic conditions allow documented in this encounter [facility] 01-28-2024 History of Present illness Narrative [...] ER fu for UTI and dehydration. See [facility] for HPI Was sent home on Bactrim. Feels completely fine now, no fever, chills, malodorous urine, no constipation diarrhea or abd pain SUBJECTIVE: MEDICATIONS: Current Outpatient Medications Medication Instructions amLODIPine (NORVASC) 10 mg, Oral, Daily biotin 5 MG tablet Pt taking OTC ([employer]) Calcium Citrate-Vitamin D (CITRACAL + D PO) Pt taking OTC ([employer]) carvedilol (COREG) 12.5 mg, Oral, 2 times [...] Daily Magnesium 400 MG capsule Pt taking OTC([employer]) Melatonin 12 MG tablet 1 tablet, Oral, Nightly Multiple Vitamins-Minerals (BARIATRIC MULTIVITAMINS/IRON PO) Pt taking OTC ([employer]) nystatin (Mycostatin) [id number] UNIT/GM powder 1 application , Topical, 2 [...] Anxiety 05/18/2023 Bipolar disorder with severe depression ([facility]) 05/18/2023 Brain lesion Brain vascular malformation Chronic pain disorder Closed fracture of patella 02/04/2018 Colon polyps Constipation Degenerative cervical disc Degenerative lumbar disc Depression ([facility]) 05/18/2023 Diastolic dysfunction Dizziness 05/18/2023 Dysphagia Fibromyalgia Fibromyalgia Gastrocnemius equinus GERD (gastroesophageal reflux disease) Heart murmur Hematoma of right breast Hemiparesis ([facility]) Hemiparesis, right ([facility]) Hemorrhoid int/external hemorrhoids Hiatal hernia Iron deficiency Left foot pain 03/25/2023 Lower extremity edema Mood disorder ([facility]) mixed mood disorder OSMANY (obstructive sleep apnea) Osteoporosis ([facility]) Overactive bladder Pre-diabetes Primary hypertension ([facility]) 03/25/2023 PTSD (post-traumatic stress disorder) ([facility]) Restless leg Right knee pain Right sided weakness S/P bariatric surgery Shingles Slurred speech Stroke ([facility]) 2018 Tenosynovitis, de Quervain [...] Relevant Orders Flu vaccine, MDCK, quadrivalent, PF (QLD289) (Flucelvax single dose syringe) Associated Problem(s): Tobacco [...] start this process documented in this encounter [facility] 01-04-2024 History of Present illness Narrative [...] Pt taking OTC ([facility]) carvedilol (COREG) 12.5 mg, Oral, 2 times [...] Daily Magnesium 400 MG capsule Pt taking OTC([facility]) Melatonin 12 MG tablet 1 tablet, Oral, Nightly Multiple Vitamins-Minerals (BARIATRIC MULTIVITAMINS/IRON PO) Pt taking OTC ([facility]) nystatin (Mycostatin) [id number] UNIT/GM powder 1 application , Topical, 2 [...] Anxiety 05/18/2023 Bipolar disorder with severe depression ([facility]) 05/18/2023 Brain lesion Brain vascular malformation Chronic pain disorder Closed fracture of patella 02/04/2018 Colon polyps Constipation Degenerative cervical disc Degenerative lumbar disc Depression ([facility]) 05/18/2023 Diastolic dysfunction Dizziness 05/18/2023 Dysphagia Fibromyalgia Fibromyalgia Gastrocnemius equinus GERD (gastroesophageal reflux disease) Heart murmur Hematoma of right breast Hemiparesis ([facility]) Hemiparesis, right ([facility]) Hemorrhoid int/external hemorrhoids Hiatal hernia Iron deficiency Left foot pain 03/25/2023 Lower extremity edema Mood disorder ([facility]) mixed mood disorder OSMANY (obstructive sleep apnea) Osteoporosis ([facility]) Overactive bladder Pre-diabetes Primary hypertension ([facility]) 03/25/2023 PTSD (post-traumatic stress disorder) ([facility]) Restless leg Right knee pain Right sided weakness S/P bariatric surgery Shingles Slurred speech Stroke ([facility]) 2018 Tenosynovitis, de Quervain [...] MCG/ACT nasal spray documented in this encounter [facility] 12-09-2023 History of Present illness Narrative [...] machine. She is normally seen at the [facility] and was last seen on [...] melatonin. She was last seen in the [facility] on June 24, 2023. Since [...] clinic: one year documented in this encounter [facility] 12-08-2023 History of Present illness Narrative [...] Anxiety 05/18/2023 Bipolar disorder with severe depression ([facility]) 05/18/2023 Brain lesion Brain vascular malformation [...] hypertension (CMS/HCC) 03/25/2023 PTSD (post-traumatic stress disorder) ([facility]) Restless leg Right knee pain Right sided weakness S/P bariatric surgery Shingles Slurred speech Stroke ([facility]) 2018 Tenosynovitis, de Quervain [...] Review Audit Reviewed by Festus Baron MA (Radiologist Chief Of Breast Imaging) on 12/08/23 at 1525 Medication Order Taking? Sig Documenting Provider Last Dose Status amLODIPine (Norvasc) 10 MG tablet [id number] Take 1 tablet (10 mg) by mouth Daily Adelaida Carrion NP Active biotin 5 MG tablet [id number] Pt taking OTC ([employer]) Historical ProviderMD Active Calcium Citrate-Vitamin D (CITRACAL + D PO) [id number] Pt taking OTC ([employer]) Historical Provider, Active Cariprazine HCl (Vraylar) 4.5 MG capsule [id number] Take 4.5 mg by mouth Daily Active carvedilol (Coreg) 12.5 MG tablet [id number] Take 1 tablet (12.5 mg) by mouth in the morning and 1 tablet (12.5 mg) in the evening. Take with meals. Adelaida Carrion NP Active cetirizine (ZyrTEC) 10 MG tablet [id number] Take 1 tablet (10 mg) by mouth Daily Adelaida Carrion NP Active clonazePAM (KlonoPIN) 1 MG tablet [id number] Take 1 tablet (1 mg) by mouth 2 (two) times a day as needed for anxiety Do not start before October 16, 2023. Sonam Brown NP 11/15/23 2359 DULoxetine (Cymbalta) [address] capsule [id number] Take 60 mg by mouth in the morning and 60 mg before bedtime. Do not crush or chew.. Active fluconazole (Diflucan) 150 MG tablet [id number] 1 pill every 3 days for a total of 3 doses Adelaida Carrion NP Active fluticasone (Flonase) 50 MCG/ACT nasal spray [id number] Administer 2 sprays into each nostril Daily Adelaida Carrion NP 11/04/23 2359 gabapentin (Neurontin) 300 MG capsule [id number] Take 1 capsule (300 mg) by mouth in the morning and 1 capsule (300 mg) before bedtime. Sonam Brown NP Active losartan (Cozaar) 100 MG tablet [id number] Take 1 tablet (100 mg) by mouth Daily Adelaida Carrion NP Active Magnesium 400 MG capsule [id number] Pt taking OTC([employer]) Historical ProviderMD Active Melatonin 12 MG tablet [id number] Take 1 tablet by mouth at bedtime Active Multiple Vitamins-Minerals (BARIATRIC MULTIVITAMINS/IRON PO) [id number] Pt taking OTC ([employer]) Historical ProviderMD Active nystatin (Mycostatin) 252307 UNIT/GM powder [id number] Apply 1 application topically in the morning and 1 application before bedtime. Adeladia Carrion NP Active omeprazole (PriLOSEC) [address] capsule [id number] Take 1 capsule (20 mg) by mouth in the morning. Take before meals. Adelaida Carrion NP Active rOPINIRole (Requip) 4 MG tablet [id number] Take 1 tablet (4 mg) by mouth at bedtime Sonam Brown NP Active spironolactone (Aldactone) 25 MG tablet [id number] Take 2 tablets (50 mg) by mouth Daily Adelaida Carrion NP Active tiZANidine (Zanaflex) 2 MG tablet [id number] Take 2 mg by mouth every 8 (eight) hours Adelaida Carrion NP Active traZODone (Desyrel) 150 MG tablet [id number] Take 150 mg by mouth at bedtime Active HPI AMS -Patient was admitted to [facility] from the [facility] on 08/24/2023 with acute respiratory failure [...] ankle and great toe bilaterally. Coordination Right: Cubdmv-it-jstu normal. Rapid alternating movement normal.Left: Spvwvc-pa-ilih normal. Rapid alternating movement normal. Gait Casual gait is normal including stance, stride, and arm swing. Motor Examination RUE Strength deltoid, biceps, triceps, wrist extensors, wrist extensors, wrist flexor, furnace unloader strength 5/5. LUE Strength deltoid, biceps, triceps, wrist extensors, wrist extensors, wrist flexor, furnace unloader strength 5/5. RLE Strength illopsoas, quadriceps, tibialis [...] not all inclusive. Patient was admitted to [facility] from the [facility] on 08/24/2023 with acute respiratory failure [...] of the brain in July 2019 showed pvyl-tl-izcbahqu white matter changes with the largest area [...] make further recommendations documented in this encounter [facility] 05-18-2023 History of Present illness Narrative [...] (BARIATRIC MULTIVITAMINS/IRON PO) Bariatric Multivitamins/Iron nystatin (Mycostatin) [id number] UNIT/GM powder 1 application , Topical, 2 [...] Anxiety 05/18/2023 Bipolar disorder with severe depression ([facility]) 05/18/2023 Brain vascular malformation Chronic pain disorder Colon polyps Constipation Degenerative cervical disc Degenerative lumbar disc Depression ([facility]) 05/18/2023 Diastolic dysfunction Dizziness 05/18/2023 Dysphagia Fibromyalgia Gastrocnemius equinus GERD (gastroesophageal reflux disease) Heart murmur Hematoma of right breast Hemiparesis, right ([facility]) Hemorrhoid int/external hemorrhoids Hiatal hernia Iron deficiency Left foot pain 03/25/2023 Lower extremity edema Mood disorder ([facility]) mixed mood disorder OSMANY (obstructive sleep apnea) Osteoporosis ([facility]) Overactive bladder Pre-diabetes Primary hypertension ([facility]) 03/25/2023 PTSD (post-traumatic stress disorder) ([facility]) Restless leg Right knee pain Right sided weakness S/P bariatric surgery Shingles Slurred speech Stroke ([facility]) 2018 Tenosynovitis, de Quervain [...] [facility] 03-23-2023 Procedure note [facility] 12-19-2022 Evaluation note Encounter Date Diagnosis Assessment Notes Dec, Skin candidiasis (ICD-10 - B37.2) Drink plenty fluids, get plenty of rest. Continue home medications as prescribed. Take the Diflucan as prescribed until gone. Follow-up with your family physician if no improvement in 2 to 3 days [facility] Other 08-17-2023 Discharge summary Author Eduardo barrett [facility] November 20, 2022 6:38am Note Date/Time November 20, 2022 6: 38am [facility] [address] [place] [address] Discharge Summary Signed Patient: Michelle Be MR#: [id number] : 1960 Acct:[id number] Age/Sex: 61 / F Adm Date: 3 Loc: Room: [address] [place] [address]: Gaudencio Monk MD Copies to: [...] time.? She reports moving to [place] from [place] in 2011 and was then diagnosed with bipolar disorder at [facility] in [place], where she still follows with a therapist.? Shereports that she has been with 7 therapists in the last 9 years and is currentlycompleting EMDR with her current therapist. Past hospitalizations: Her most recent hospitalization was 5 years ago [facility] in [place] for the same feeling she is experiencing [...] self or stop treatment, but to call [facility], [facility] or come to the nearest emergency room. 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 (insert [...] signed by Eduardo Monk MD> 11/20/22 0638 [facility] Work Phone: 1(437) 981-264908-16-2023 Progress note Author Eduardo barrett [facility] November 19, 2022 6:25am Note Date/Time November 19, 2022 6: 25am [facility] [address] [place] [address] Psychiatry Progress Note Signed Patient: Michelle Be MR#: [id number] : 1960 Acct:[id number] Age/Sex: 61 / F Adm Date: 3 Loc: 1S Room: 4P4825-6 Type : ADM IN Attending Dr: Gaudencio [...] 0625 [facility] Work Phone: 1(326) 100-436608-15-2023 Progress note Author Eduardo barrett [facility] November 18, 2022 11:01am Note Date/Time November 18, 2022 10 :11am [facility] [address] [place] [address] Psychiatry Progress Note Signed Patient: Michelle Be MR#: [id number] : 1960 Acct:[id number] Age/Sex: 61 / F Adm Date: 3 Loc: Room: [address] [place] [address] Type : ADM IN Attending Dr: Gaudencio [...] by requesting a schedule 2 referring to [facility] for pain management specifically every 4-6 hours [...] time Documented By: Eduardo Monk MD 3 [id number] Signed By: <Electronically signed by Eduardo Monk MD> 11/18/22 1101 <Electronically signed by MD DA Rangel> 11/18/22 1011 [facility] Work Phone: 1([phone]) 417-900408-14-2023 History and physical note Author Eduardo barrett [facility] November 17, 2022 12:48pm Note Date/Time November 17, 2022 12 :48pm [facility] [address] [place] [address] Psychiatry H&P Signed Patient: Michelle Be MR#: [id number] : 1960 Acct:[id number] Age/Sex: 61 / F Adm Date: 3 Loc: Room: [address] [place] [address] Type: ADM IN Attending Dr: Gaudencio Monk [...] time. She reports moving to [place] from [place] in 2011 and was then diagnosed with bipolar disorder at [facility] in [place], where she still follows with a therapist. Shereports that she has been with 7 therapists in the last 9 years and is currentlycompleting EMDR with her current therapist. Past hospitalizations: Her most recent hospitalization was 5 years ago [facility] for the same feeling she [...] Meds Medications and Allergies Allergies levetiracetam [From [facility]] Allergy (Verified 11/17/22 02:16) Unknown Reaction milnacipran [...] Eduardo Monk MD> 11/17/22 1248 [facility] Work Phone: [phone]) 126-187703-23-2023 NoteCONSULTATION CONSULTATION DATE: 06/26/2022 To: Nurse Carrion [...] L5-S1 facet joint injection under fluoroscopic guidance.[facility] [id number] NotePROCEDURE: XR SHOULDER RT 2V or > [...] Electronically authenticated by: KINGSLEY CLEMENTS Date: 2022-05-09 09:21[facility]01-23-2023 NotePROCEDURE: XR WRIST LT MIN 3 [...] authenticated by: KINGSLEY CLEMENTS Date: 2022-04-28 13:31[facility] [id number] NoteCONSULTATION CONSULTATION DATE: 04/03/2022 HISTORY OF PRESENT [...] her in three months, unless otherwise indicated.[facility] [id number] NoteCONSULTATION CONSULTATION DATE: 01/02/2022 This is a [...] Macedo to [facility] in [place] for the compounded cream. She needs a [...] in three months' time unless otherwise indicated.[facility] [id number] NotePROCEDURE: XR ANKLE RT MIN 3 VIEWS, [...] Electronically authenticated by: KINGSLEY CLEMENTS Date: 2022-01-01 13:11[facility]09-28-2022 NotePROCEDURE: XR ANKLE RT MIN 3 [...] Electronically authenticated by: KINGSLEY CLEMENTS Date: 2022-01-01 13:11[facility]08-18-2022 NotePROCEDURE: XR FOOT RT MIN 3 VIEWS HISTORY: Pain in right foot , chronic COMPARISON: XR foot right 2020 FINDINGS: BONES:No fracture, dislocation, bone lesion. Small calcaneal degenerative enthesophytes. SOFT TISSUES:No visible soft tissue swelling. EFFUSION:None visible. OTHER: Negative. IMPRESSION: 1. No acute bone abnormality or significant degenerative joint disease. Electronically authenticated by: KINGSLEY CLEMENTS Date: 2021-11-21 16:13[facility]06-30-2022 NoteCONSULTATION CONSULTATION DATE: 10/03/2021 This is [...] and Approved by: ZELDA MCDANIEL . 10/10/2021 10:22:00[facility] Diagnosis Onset Date Resolution Status Allergies acute Bipolar 2 disorder acute Hypertension acute Morbid obesity with BMI of 45.0-49.9, adult acute OSMANY (obstructive sleep apnea) acute Restless legs syndrome acute [facility] Work Phone: Evaluation noteNo InformationNort [employer] Other Evaluation noteNo assessment information available [facility] Work Phone: Evaluation note* Diagnosis Encounter for annual wellness visit (AWV) in Medicare patient- Primary OSMANY (obstructive sleep apnea) Obstructive sleep apnea (adult) (pediatric) Chronic pain disorder Chronic pain syndrome Gastroesophageal reflux disease, unspecified whether esophagitis present Overactive bladder Hypertonicity of bladder Lower extremity edema Edema Pre-diabetes Other abnormal glucose Morbid obesity ([facility]) Morbid obesity Yeast infection of the skin Candidiasis of skin and nails Tobacco dependence Tobacco use disorder Mood disorder ([facility]) Unspecified episodic mood disorder Primary hypertension ([facility]) Unspecified essential hypertension Left hip pain Pain in joint, pelvic region and thigh Open wound of anterior abdominal wall, initial encounter documented in this encounter [facility] HealthcareEvaluation note* Diagnosis Acute cystitis with hematuria- Primary documented in this encounter [facility] HealthcareEvaluation note* Diagnosis Left foot pain- Primary Pain in soft tissues of limb Primary hypertension ([facility]) Unspecified essential hypertension Class 3 severe obesity due to excess calories without serious comorbidity with body mass index (BMI) of 45.0 to 49.9 in adult ([facility]) Encounter for annual wellness [...] Tobacco dependence Tobacco use disorder Mood disorder ([facility]) Unspecified episodic mood disorder Primary hypertension ([facility]) Unspecified essential hypertension Left hip pain Pain in joint, pelvic region and thigh Open wound of anterior abdominal wall, initial encounter Primary hypertension ([facility])- Primary Unspecified essential hypertension Yeast infection of the skin Candidiasis of skin and nails Morbid obesity ([facility]) Morbid obesity Primary hypertension ([facility])- Primary Unspecified essential hypertension Encounter for screening mammogram for malignant neoplasm of breast Gastroesophageal reflux disease, unspecified whether esophagitis present Acute gout of right foot, unspecified cause Osteoporosis, unspecified osteoporosis type, unspecified pathological fracture presence ([facility]) Morbid obesity ([facility]) Morbid obesity Pre-diabetes Other abnormal glucose Anemia, unspecified type Vitamin deficiency Unspecified vitamin deficiency Post-viral cough syndrome Primary hypertension ([facility])- Primary Unspecified essential hypertension Allergic rhinitis, unspecified Acute cough Morbid obesity ([facility]) Morbid obesity Former cigarette smoker Personal history of tobacco use, presenting hazards to health Toxic metabolic encephalopathy- Primary Hemiparesis, right ([facility]) Unspecified hemiplegia affecting unspecified side Acute respiratory failure with hypoxia ([facility]) Heart murmur Undiagnosed cardiac murmurs Primary hypertension ([facility]) Unspecified essential hypertension Morbid obesity ([facility]) Morbid obesity Bipolar disorder with severe depression ([facility]) Slurred speech Other speech disturbance Bilateral lower extremity edema- Primary Primary hypertension ([facility]) Unspecified essential hypertension Lower extremity edema Edema [...] lower extremity edema- Primary Essential (primary) hypertension ([facility]) Unspecified essential hypertension Allergic rhinitis, unspecified OSMANY (obstructive sleep apnea) Obstructive sleep apnea (adult) (pediatric) Primary hypertension ([facility]) Unspecified essential hypertension Morbid obesity ([facility]) Morbid obesity Acute cystitis without hematuria- Primary Tobacco dependence Tobacco use disorder Needs flu shot Need for prophylactic vaccination and inoculation against influenza Morbid obesity ([facility]) Morbid obesity documented in this encounter [facility] HealthcareEvaluation note* Diagnosis Left foot pain- Primary Pain in soft tissues of limb Primary hypertension ([facility]) Unspecified essential hypertension Class 3 severe obesity due to excess calories without serious comorbidity with body mass index (BMI) of 45.0 to 49.9 in adult ([facility]) Encounter for annual wellness visit (AWV) in Medicare patient- Primary OSMANY (obstructive sleep apnea) Obstructive sleep apnea (adult) (pediatric) Chronic pain disorder Chronic pain syndrome Gastroesophageal reflux disease, unspecified whether esophagitis present Overactive bladder Hypertonicity of bladder Lower extremity edema Edema Pre-diabetes Other abnormal glucose Morbid obesity ([facility]) Morbid obesity Yeast infection of the skin Candidiasis of skin and nails Tobacco dependence Tobacco use disorder Mood disorder ([facility]) Unspecified episodic mood disorder Primary hypertension ([facility]) Unspecified essential hypertension Left hip pain Pain in joint, pelvic region and thigh Open wound of anterior abdominal wall, initial encounter Primary hypertension ([facility])- Primary Unspecified essential hypertension Yeast infection of the skin Candidiasis of skin and nails Morbid obesity ([facility]) Morbid obesity Primary hypertension ([facility])- Primary Unspecified essential hypertension Encounter for screening mammogram for malignant neoplasm of breast Gastroesophageal reflux disease, unspecified whether esophagitis present Acute gout of right foot, unspecified cause Osteoporosis, unspecified osteoporosis type, unspecified pathological fracture presence ([facility]) Morbid obesity ([facility]) Morbid obesity Pre-diabetes Other abnormal glucose Anemia, unspecified type Vitamin deficiency Unspecified vitamin deficiency Post-viral cough syndrome Primary hypertension ([facility])- Primary Unspecified essential hypertension Allergic rhinitis, unspecified Acute cough Morbid obesity ([facility]) Morbid obesity Former cigarette smoker Personal history of tobacco use, presenting hazards to health Toxic metabolic encephalopathy- Primary Hemiparesis, right ([facility]) Unspecified hemiplegia affecting unspecified side Acute respiratory failure with hypoxia ([facility]) Heart murmur Undiagnosed cardiac murmurs Primary hypertension ([facility]) Unspecified essential hypertension Morbid obesity ([facility]) Morbid obesity Bipolar disorder with severe depression ([facility]) Slurred speech Other speech disturbance Bilateral lower extremity edema- Primary Primary hypertension ([facility]) Unspecified essential hypertension Lower extremity edema Edema Essential (primary) hypertension ([facility]) Unspecified essential hypertension Gastro-esophageal reflux disease without esophagitis Allergic rhinitis, unspecified Bilateral lower extremity edema- Primary Morbid (severe) obesity due to excess calories ([facility]) Body mass index (BMI) 45.0-49.9, adult ([facility]) Pre-diabetes Other abnormal glucose Bilateral lower extremity edema- Primary Essential (primary) hypertension ([facility]) Unspecified essential hypertension Allergic rhinitis, unspecified OSMANY (obstructive sleep apnea) Obstructive sleep apnea (adult) (pediatric) Primary hypertension ([facility]) Unspecified essential hypertension Morbid obesity ([facility]) Morbid obesity Acute cystitis without hematuria- Primary Tobacco dependence Tobacco use disorder Needs flu shot Need for prophylactic vaccination and inoculation against influenza Morbid obesity ([facility]) Morbid obesity Restless leg Restless legs syndrome (RLS) documented in this encounter [facility]Evaluation [facility]* Diagnosis Left foot pain- Primary Pain in soft tissues of limb Primary hypertension ([facility]) Unspecified essential hypertension Class 3 severe obesity due to excess calories without serious comorbidity with body mass index (BMI) of 45.0 to 49.9 in adult ([facility]) Encounter for annual wellness visit (AWV) in Medicare patient- Primary OSMANY (obstructive sleep apnea) Obstructive sleep apnea (adult) (pediatric) Chronic pain disorder Chronic pain syndrome Gastroesophageal reflux disease, unspecified whether esophagitis present Overactive bladder Hypertonicity of bladder Lower extremity edema Edema Pre-diabetes Other abnormal glucose Morbid obesity ([facility]) Morbid obesity Yeast infection of the skin Candidiasis of skin and nails Tobacco dependence Tobacco use disorder Mood disorder ([facility]) Unspecified episodic mood disorder Primary hypertension ([facility]) Unspecified essential hypertension Left hip pain Pain in joint, pelvic region and thigh Open wound of anterior abdominal wall, initial encounter Primary hypertension ([facility])- Primary Unspecified essential hypertension Yeast infection of the skin Candidiasis of skin and nails Morbid obesity ([facility]) Morbid obesity Primary hypertension ([facility])- Primary Unspecified essential hypertension Encounter for screening mammogram for malignant neoplasm of breast Gastroesophageal reflux disease, unspecified whether esophagitis present Acute gout of right foot, unspecified cause Osteoporosis, unspecified osteoporosis type, unspecified pathological fracture presence ([facility]) Morbid obesity ([facility]) Morbid obesity Pre-diabetes Other abnormal glucose Anemia, unspecified type Vitamin deficiency Unspecified vitamin deficiency Post-viral cough syndrome Primary hypertension ([facility])- Primary Unspecified essential hypertension Allergic rhinitis, unspecified Acute cough Morbid obesity ([facility]) Morbid obesity Former cigarette smoker Personal history of tobacco use, presenting hazards to health Toxic metabolic encephalopathy- Primary Hemiparesis, right ([facility]) Unspecified hemiplegia affecting unspecified side Acute respiratory failure with hypoxia ([facility]) Heart murmur Undiagnosed cardiac murmurs Primary hypertension ([facility]) Unspecified essential hypertension Morbid obesity ([facility]) Morbid obesity Bipolar disorder with severe depression ([facility]) Slurred speech Other speech disturbance Bilateral lower extremity edema- Primary Primary hypertension ([facility]) Unspecified essential hypertension Lower extremity edema Edema Essential (primary) hypertension ([facility]) Unspecified essential hypertension Gastro-esophageal reflux disease without esophagitis Allergic rhinitis, unspecified Bilateral lower extremity edema- Primary Morbid (severe) obesity due to excess calories ([facility]) Body mass index (BMI) 45.0-49.9, adult ([facility]) Pre-diabetes Other abnormal glucose Bilateral lower extremity edema- Primary Essential (primary) hypertension ([facility]) Unspecified essential hypertension Allergic rhinitis, unspecified OSMANY (obstructive sleep apnea) Obstructive sleep apnea (adult) (pediatric) Primary hypertension ([facility]) Unspecified essential hypertension Morbid obesity ([facility]) Morbid obesity Acute cystitis without hematuria- Primary Tobacco dependence Tobacco use disorder Needs flu shot Need for prophylactic vaccination and inoculation against influenza Morbid obesity ([facility]) Morbid obesity Well woman exam with routine gynecological exam- Primary Routine gynecological examination Morbid obesity ([facility]) Morbid obesity documented in this encounter [facility] HealthcareEvaluation note* Diagnosis Left foot pain- Primary Pain in soft tissues of limb Primary hypertension ([facility]) Unspecified essential hypertension Class 3 severe obesity due to excess calories without serious comorbidity with body mass index (BMI) of 45.0 to 49.9 in adult ([facility]) Encounter for annual wellness visit (AWV) in Medicare patient- Primary OSMANY (obstructive sleep apnea) Obstructive sleep apnea (adult) (pediatric) Chronic pain disorder Chronic pain syndrome Gastroesophageal reflux disease, unspecified whether esophagitis present Overactive bladder Hypertonicity of bladder Lower extremity edema Edema Pre-diabetes Other abnormal glucose Morbid obesity ([facility]) Morbid obesity Yeast infection of the skin Candidiasis of skin and nails Tobacco dependence Tobacco use disorder Mood disorder ([facility]) Unspecified episodic mood disorder Primary hypertension ([facility]) Unspecified essential hypertension Left hip pain Pain in joint, pelvic region and thigh Open wound of anterior abdominal wall, initial encounter Primary hypertension ([facility])- Primary Unspecified essential hypertension Yeast infection of the skin Candidiasis of skin and nails Morbid obesity ([facility]) Morbid obesity Primary hypertension ([facility])- Primary Unspecified essential hypertension Encounter for screening mammogram for malignant neoplasm of breast Gastroesophageal reflux disease, unspecified whether esophagitis present Acute gout of right foot, unspecified cause Osteoporosis, unspecified osteoporosis type, unspecified pathological fracture presence ([facility]) Morbid obesity ([facility]) Morbid obesity Pre-diabetes Other abnormal glucose Anemia, unspecified type Vitamin deficiency Unspecified vitamin deficiency Post-viral cough syndrome Primary hypertension ([facility])- Primary Unspecified essential hypertension Allergic rhinitis, unspecified Acute cough Morbid obesity ([facility]) Morbid obesity Former cigarette smoker Personal history of tobacco use, presenting hazards to health Toxic metabolic encephalopathy- Primary Hemiparesis, right ([facility]) Unspecified hemiplegia affecting unspecified side Acute respiratory failure with hypoxia ([facility]) Heart murmur Undiagnosed cardiac murmurs Primary hypertension ([facility] Unspecified essential hypertension Morbid obesity ([facility]) Morbid obesity Bipolar disorder with severe depression ([facility]) Slurred speech Other speech disturbance Bilateral lower extremity edema- Primary Primary hypertension ([facility]) Unspecified essential hypertension Lower extremity edema Edema Essential (primary) hypertension ([facility]) Unspecified essential hypertension Gastro-esophageal reflux disease without esophagitis Allergic rhinitis, unspecified Bilateral lower extremity edema- Primary Morbid (severe) obesity due to excess calories ([facility]) Body mass index (BMI) 45.0-49.9, adult ([facility]) Pre-diabetes Other abnormal glucose Bilateral lower extremity edema- Primary Essential (primary) hypertension ([facility]) Unspecified essential hypertension Allergic rhinitis, unspecified OSMANY (obstructive sleep apnea) Obstructive sleep apnea (adult) (pediatric) Primary hypertension ([facility]) Unspecified essential hypertension Morbid obesity ([facility]) Morbid obesity Acute cystitis without hematuria- Primary Tobacco dependence Tobacco use disorder Needs flu shot Need for prophylactic vaccination and inoculation against influenza Morbid obesity ([facility]) Morbid obesity Well woman exam with routine gynecological exam- Primary Routine gynecological examination Morbid obesity ([facility]) Morbid obesity Essential (primary) hypertension ([facility]) Unspecified essential hypertension Allergic rhinitis, unspecified documented in this encounter [facility] Diagnosis Left foot pain- Primary Pain in soft tissues of limb Primary hypertension ([facility]) Unspecified essential hypertension Class 3 severe obesity due to excess calories without serious comorbidity with body mass index (BMI) of 45.0 to 49.9 in adult ([facility]) Encounter for annual wellness visit (AWV) in Medicare patient- Primary OSMANY (obstructive sleep apnea) Obstructive sleep apnea (adult) (pediatric) Chronic pain disorder Chronic pain syndrome Gastroesophageal reflux disease, unspecified whether esophagitis present Overactive bladder Hypertonicity of bladder Lower extremity edema Edema Pre-diabetes Other abnormal glucose Morbid obesity ([facility]) Morbid obesity Yeast infection of the skin Candidiasis of skin and nails Tobacco dependence Tobacco use disorder Mood disorder ([facility]) Unspecified episodic mood disorder Primary hypertension ([facility]) Unspecified essential hypertension Left hip pain Pain in joint, pelvic region and thigh Open wound of anterior abdominal wall, initial encounter Primary hypertension ([facility])- Primary Unspecified essential hypertension Yeast infection of the skin Candidiasis of skin and nails Morbid obesity ([facility]) Morbid obesity Primary hypertension ([facility])- Primary Unspecified essential hypertension Encounter for screening mammogram for malignant neoplasm of breast Gastroesophageal reflux disease, unspecified whether esophagitis present Acute gout of right foot, unspecified cause Osteoporosis, unspecified osteoporosis type, unspecified pathological fracture presence ([facility]) Morbid obesity ([facility]) Morbid obesity Pre-diabetes Other abnormal glucose Anemia, unspecified type Vitamin deficiency Unspecified vitamin deficiency Post-viral cough syndrome Primary hypertension ([facility])- Primary Unspecified essential hypertension Allergic rhinitis, unspecified Acute cough Morbid obesity ([facility]) Morbid obesity Former cigarette smoker Personal history of tobacco use, presenting hazards to health Toxic metabolic encephalopathy- Primary Hemiparesis, right ([facility]) Unspecified hemiplegia affecting unspecified side Acute respiratory failure with hypoxia ([facility]) Heart murmur Undiagnosed cardiac murmurs Primary hypertension ([facility]) Unspecified essential hypertension Morbid obesity ([facility]) Morbid obesity Bipolar disorder with severe depression ([facility]) Slurred speech Other speech disturbance Bilateral lower extremity edema- Primary Primary hypertension ([facility]) Unspecified essential hypertension Lower extremity edema Edema Essential (primary) hypertension ([facility]) Unspecified essential hypertension Gastro-esophageal reflux disease without esophagitis Allergic rhinitis, unspecified Bilateral lower extremity edema- Primary Morbid (severe) obesity due to excess calories ([facility]) Body mass index (BMI) 45.0-49.9, adult ([facility]) Pre-diabetes Other abnormal glucose Bilateral lower extremity edema- Primary Essential (primary) hypertension ([facility]) Unspecified essential hypertension Allergic rhinitis, unspecified OSMANY (obstructive sleep apnea) Obstructive sleep apnea (adult) (pediatric) Primary hypertension ([facility]) Unspecified essential hypertension Morbid obesity ([facility]) Morbid obesity Acute cystitis without hematuria- Primary Tobacco dependence Tobacco use disorder Needs flu shot Need for prophylactic vaccination and inoculation against influenza Morbid obesity (CMS/HCC) Morbid obesity Well woman exam with routine gynecological exam- Primary Routine gynecological examination Morbid obesity ([facility]) Morbid obesity Allergic rhinitis, unspecified documented in this encounter [facility] Diagnosis Left foot pain- Primary Pain in soft tissues of limb Primary hypertension ([facility]) Unspecified essential hypertension Class 3 severe obesity due to excess calories without serious comorbidity with body mass index (BMI) of 45.0 to 49.9 in adult ([facility]) Encounter for annual wellness visit (AWV) in Medicare patient- Primary OSMANY (obstructive sleep apnea) Obstructive sleep apnea (adult) (pediatric) Chronic pain disorder Chronic pain syndrome Gastroesophageal reflux disease, unspecified whether esophagitis present Overactive bladder Hypertonicity of bladder Lower extremity edema Edema Pre-diabetes Other abnormal glucose Morbid obesity ([facility]) Morbid obesity Yeast infection of the skin Candidiasis of skin and nails Tobacco dependence Tobacco use disorder Mood disorder ([facility]) Unspecified episodic mood disorder Primary hypertension ([facility]) Unspecified essential hypertension Left hip pain Pain in joint, pelvic region and thigh Open wound of anterior abdominal wall, initial encounter Primary hypertension ([facility])- Primary Unspecified essential hypertension Yeast infection of the skin Candidiasis of skin and nails Morbid obesity ([facility]) Morbid obesity Primary hypertension ([facility])- Primary Unspecified essential hypertension Encounter for screening mammogram for malignant neoplasm of breast Gastroesophageal reflux disease, unspecified whether esophagitis present Acute gout of right foot, unspecified cause Osteoporosis, unspecified osteoporosis type, unspecified pathological fracture presence ([facility]) Morbid obesity ([facility]) Morbid obesity Pre-diabetes Other abnormal glucose Anemia, unspecified type Vitamin deficiency Unspecified vitamin deficiency Post-viral cough syndrome Primary hypertension ([facility])- Primary Unspecified essential hypertension Allergic rhinitis, unspecified Acute cough Morbid obesity ([facility]) Morbid obesity Former cigarette smoker Personal history of tobacco use, presenting hazards to health Toxic metabolic encephalopathy- Primary Hemiparesis, right ([facility]) Unspecified hemiplegia affecting unspecified side Acute respiratory failure with hypoxia ([facility]) Heart murmur Undiagnosed cardiac murmurs Primary hypertension ([facility]) Unspecified essential hypertension Morbid obesity ([facility]) Morbid obesity Bipolar disorder with severe depression ([facility]) Slurred speech Other speech disturbance Bilateral lower extremity edema- Primary Primary hypertension ([facility]) Unspecified essential hypertension Lower extremity edema Edema Essential (primary) hypertension ([facility]) Unspecified essential hypertension Gastro-esophageal reflux disease without esophagitis Allergic rhinitis, unspecified Bilateral lower extremity edema- Primary Morbid (severe) obesity due to excess calories ([facility]) Body mass index (BMI) 45.0-49.9, adult ([facility]) Pre-diabetes Other abnormal glucose Bilateral lower extremity edema- Primary Essential (primary) hypertension ([facility]) Unspecified essential hypertension Allergic rhinitis, unspecified OSMANY (obstructive sleep apnea) Obstructive sleep apnea (adult) (pediatric) Primary hypertension ([facility]) Unspecified essential hypertension Morbid obesity ([facility]) Morbid obesity Acute cystitis without hematuria- Primary Tobacco dependence Tobacco use disorder Needs flu shot Need for prophylactic vaccination and inoculation against influenza Morbid obesity ([facility]) Morbid obesity Well woman exam with routine gynecological exam- Primary Routine gynecological examination Morbid obesity ([facility]) Morbid obesity Yeast infection of the skin Candidiasis of skin and nails documented in this encounter [facility]* Diagnosis Left foot pain- Primary Pain in soft tissues of limb Primary hypertension ([facility]) Unspecified essential hypertension Class 3 severe obesity due to excess calories without serious comorbidity with body mass index (BMI) of 45.0 to 49.9 in adult ([facility]) Encounter for annual wellness visit (AWV) in Medicare patient- Primary OSMANY (obstructive sleep apnea) Obstructive sleep apnea (adult) (pediatric) Chronic pain disorder Chronic pain syndrome Gastroesophageal reflux disease, unspecified whether esophagitis present Overactive bladder Hypertonicity of bladder Lower extremity edema Edema Pre-diabetes Other abnormal glucose Morbid obesity ([facility]) Morbid obesity Yeast infection of the skin Candidiasis of skin and nails Tobacco dependence Tobacco use disorder Mood disorder ([facility]) Unspecified episodic mood disorder Primary hypertension ([facility]) Unspecified essential hypertension Left hip pain Pain in joint, pelvic region and thigh Open wound of anterior abdominal wall, initial encounter Primary hypertension ([facility])- Primary Unspecified essential hypertension Yeast infection of the skin Candidiasis of skin and nails Morbid obesity ([facility]) Morbid obesity Primary hypertension ([facility])- Primary Unspecified essential hypertension Encounter for screening mammogram for malignant neoplasm of breast Gastroesophageal reflux disease, unspecified whether esophagitis present Acute gout of right foot, unspecified cause Osteoporosis, unspecified osteoporosis type, unspecified pathological fracture presence ([facility]) Morbid obesity ([facility]) Morbid obesity Pre-diabetes Other abnormal glucose Anemia, unspecified type Vitamin deficiency Unspecified vitamin deficiency Post-viral cough syndrome Primary hypertension ([facility])- Primary Unspecified essential hypertension Allergic rhinitis, unspecified Acute cough Morbid obesity ([facility]) Morbid obesity Former cigarette smoker Personal history of tobacco use, presenting hazards to health Toxic metabolic encephalopathy- Primary Hemiparesis, right ([facility]) Unspecified hemiplegia affecting unspecified side Acute respiratory failure with hypoxia ([facility]) Heart murmur Undiagnosed cardiac murmurs Primary hypertension ([facility]) Unspecified essential hypertension Morbid obesity ([facility]) Morbid obesity Bipolar disorder with severe depression ([facility]) Slurred speech Other speech disturbance Bilateral lower extremity edema- Primary Primary hypertension ([facility]) Unspecified essential hypertension Lower extremity edema Edema Essential (primary) hypertension ([facility]) Unspecified essential hypertension Gastro-esophageal reflux disease without esophagitis Allergic rhinitis, unspecified Bilateral lower extremity edema- Primary Morbid (severe) obesity due to excess calories ([facility]) Body mass index (BMI) 45.0-49.9, adult ([facility]) Pre-diabetes Other abnormal glucose Bilateral lower extremity edema- Primary Essential (primary) hypertension ([facility]) Unspecified essential hypertension Allergic rhinitis, unspecified OSMANY (obstructive sleep apnea) Obstructive sleep apnea (adult) (pediatric) Primary hypertension ([facility]) Unspecified essential hypertension Morbid obesity ([facility]) Morbid obesity Acute cystitis without hematuria- Primary Tobacco dependence Tobacco use disorder Needs flu shot Need for prophylactic vaccination and inoculation against influenza Morbid obesity ([facility]) Morbid obesity Well woman exam with routine gynecological exam- Primary Routine gynecological examination Morbid obesity ([facility]) Morbid obesity Metabolic encephalopathy- Primary OSMANY (obstructive sleep apnea) Obstructive sleep apnea (adult) (pediatric) Restless leg Restless legs syndrome (RLS) 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 ([facility]) Degeneration of intervertebral disc of lumbar region with discogenic back pain and lower extremity pain Memory change Memory loss documented in this encounter [facility]* Diagnosis Left foot pain- Primary Pain in soft tissues of limb Primary hypertension ([facility]) Unspecified essential hypertension Class 3 severe obesity due to excess calories without serious comorbidity with body mass index (BMI) of 45.0 to 49.9 in adult ([facility]) Encounter for annual wellness visit (AWV) in Medicare patient- Primary OSMANY (obstructive sleep apnea) Obstructive sleep apnea (adult) (pediatric) Chronic pain disorder Chronic pain syndrome Gastroesophageal reflux disease, unspecified whether esophagitis present Overactive bladder Hypertonicity of bladder Lower extremity edema Edema Pre-diabetes Other abnormal glucose Morbid obesity ([facility]) Morbid obesity Yeast infection of the skin Candidiasis of skin and nails Tobacco dependence Tobacco use disorder Mood disorder ([facility]) Unspecified episodic mood disorder Primary hypertension ([facility]) Unspecified essential hypertension Left hip pain Pain in joint, pelvic region and thigh Open wound of anterior abdominal wall, initial encounter Primary hypertension ([facility])- Primary Unspecified essential hypertension Yeast infection of the skin Candidiasis of skin and nails Morbid obesity ([facility]) Morbid obesity Primary hypertension ([facility])- Primary Unspecified essential hypertension Encounter for screening mammogram for malignant neoplasm of breast Gastroesophageal reflux disease, unspecified whether esophagitis present Acute gout of right foot, unspecified cause Osteoporosis, unspecified osteoporosis type, unspecified pathological fracture presence ([facility]) Morbid obesity ([facility]) Morbid obesity Pre-diabetes Other abnormal glucose Anemia, unspecified type Vitamin deficiency Unspecified vitamin deficiency Post-viral cough syndrome Primary hypertension ([facility])- Primary Unspecified essential hypertension Allergic rhinitis, unspecified Acute cough Morbid obesity ([facility]) Morbid obesity Former cigarette smoker Personal history of tobacco use, presenting hazards to health Toxic metabolic encephalopathy- Primary Hemiparesis, right ([facility]) Unspecified hemiplegia affecting unspecified side Acute respiratory failure with hypoxia ([facility]) Heart murmur Undiagnosed cardiac murmurs Primary hypertension ([facility]) Unspecified essential hypertension Morbid obesity ([facility]) Morbid obesity Bipolar disorder with severe depression ([facility]) Slurred speech Other speech disturbance Bilateral lower extremity edema- Primary Primary hypertension ([facility]) Unspecified essential hypertension Lower extremity edema Edema Essential (primary) hypertension ([facility]) Unspecified essential hypertension Gastro-esophageal reflux disease without esophagitis Allergic rhinitis, unspecified Bilateral lower extremity edema- Primary Morbid (severe) obesity due to excess calories ([facility]) Body mass index (BMI) 45.0-49.9, adult ([facility]) Pre-diabetes Other abnormal glucose Bilateral lower extremity edema- Primary Essential (primary) hypertension ([facility]) Unspecified essential hypertension Allergic rhinitis, unspecified OSMANY (obstructive sleep apnea) Obstructive sleep apnea (adult) (pediatric) Primary hypertension ([facility]) Unspecified essential hypertension Morbid obesity ([facility]) Morbid obesity Acute cystitis [...] leg Restless legs syndrome (RLS) 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[facility]) OSMANY (obstructive sleep apnea) Obstructive sleep apnea (adult) (pediatric) documented in this encounter [facility]* Diagnosis Left foot pain- Primary Pain in soft tissues of limb Primary hypertension ([facility]) Unspecified essential hypertension Class 3 severe obesity due to excess calories without serious comorbidity with body mass index (BMI) of 45.0 to 49.9 in adult ([facility]) Encounter for annual wellness visit (AWV) in Medicare patient- Primary OSMANY (obstructive sleep apnea) Obstructive sleep apnea (adult) (pediatric) Chronic pain disorder Chronic pain syndrome Gastroesophageal reflux disease, unspecified whether esophagitis present Overactive bladder Hypertonicity of bladder Lower extremity edema Edema Pre-diabetes Other abnormal glucose Morbid obesity ([facility]) Morbid obesity Yeast infection of the skin Candidiasis of skin and nails Tobacco dependence Tobacco use disorder Mood disorder ([facility]) Unspecified episodic mood disorder Primary hypertension ([facility]) Unspecified essential hypertension Left hip pain Pain in joint, pelvic region and thigh Open wound of anterior abdominal wall, initial encounter Primary hypertension ([facility]/HCC)- Primary Unspecified essential hypertension Yeast infection of the skin Candidiasis of skin and nails Morbid obesity ([facility]) Morbid obesity Primary hypertension ([facility])- Primary Unspecified essential hypertension Encounter for screening mammogram for malignant neoplasm of breast Gastroesophageal reflux disease, unspecified whether esophagitis present Acute gout of right foot, unspecified cause Osteoporosis, unspecified osteoporosis type, unspecified pathological fracture presence ([facility]) Morbid obesity ([facility]) Morbid obesity Pre-diabetes Other abnormal glucose Anemia, unspecified type Vitamin deficiency Unspecified vitamin deficiency Post-viral cough syndrome Primary hypertension ([facility])- Primary Unspecified essential hypertension Allergic rhinitis, unspecified Acute cough Morbid obesity ([facility]) Morbid obesity Former cigarette smoker Personal history of tobacco use, presenting hazards to health Toxic metabolic encephalopathy- Primary Hemiparesis, right ([facility]) Unspecified hemiplegia affecting unspecified side Acute respiratory failure with hypoxia ([facility]) Heart murmur Undiagnosed cardiac murmurs Primary hypertension ([facility]) Unspecified essential hypertension Morbid obesity ([facility]) Morbid obesity Bipolar disorder with severe depression ([facility]) Slurred speech Other speech disturbance Bilateral lower extremity edema- Primary Primary hypertension ([facility]) Unspecified essential hypertension Lower extremity edema Edema Essential (primary) hypertension ([facility]) Unspecified essential hypertension Gastro-esophageal reflux disease without esophagitis Allergic rhinitis, unspecified Bilateral lower extremity edema- Primary Morbid (severe) obesity due to excess calories ([facility]) Body mass index (BMI) 45.0-49.9, adult ([facility]) Pre-diabetes Other abnormal glucose Bilateral lower extremity edema- Primary Essential (primary) hypertension ([facility]) Unspecified essential hypertension Allergic rhinitis, unspecified OSMANY (obstructive sleep apnea) Obstructive sleep apnea (adult) (pediatric) Primary hypertension ([facility]) Unspecified essential hypertension Morbid obesity ([facility]) Morbid obesity Acute cystitis without hematuria- Primary Tobacco dependence Tobacco use disorder Needs flu shot Need for prophylactic vaccination and inoculation against influenza Morbid obesity ([facility]) Morbid obesity Well woman exam with routine gynecological exam- Primary Routine gynecological examination Morbid obesity ([facility]) Morbid obesity Altered mental status, unspecified altered mental status type- Primary Memory change Memory loss Concentration deficit 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 ([facility]) PTSD (post-traumatic stress disorder) ([facility]) Posttraumatic stress disorder Bipolar affective disorder, remission status unspecified ([facility]) Family history of dementia Family history [...] Edema Pre-diabetes Other abnormal glucose Morbid obesity ([facility]) Morbid obesity Yeast infection of the skin Candidiasis of skin and nails Tobacco dependence Tobacco use disorder Mood disorder ([facility]) Unspecified episodic mood disorder Primary hypertension ([facility]) Unspecified essential hypertension Left hip pain Pain in joint, pelvic region and thigh Open wound of anterior abdominal wall, initial encounter Primary hypertension ([facility])- Primary Unspecified essential hypertension Yeast infection of the skin Candidiasis of skin and nails Morbid obesity ([facility]) Morbid obesity Primary hypertension ([facility])- Primary Unspecified essential hypertension Allergic rhinitis, unspecified Acute cough Morbid obesity ([facility]) Morbid obesity Former cigarette smoker Personal history of tobacco use, presenting hazards to health Toxic metabolic encephalopathy- Primary Hemiparesis, right ([facility]) Unspecified hemiplegia affecting unspecified side Acute respiratory failure with hypoxia ([facility]) Heart murmur Undiagnosed cardiac murmurs Primary hypertension ([facility]) Unspecified essential hypertension Morbid obesity ([facility]) Morbid obesity Bipolar disorder with severe depression ([facility]) Slurred speech Other speech disturbance Bilateral lower extremity edema- Primary Primary hypertension ([facility]) Unspecified essential hypertension Lower extremity edema Edema Essential (primary) hypertension ([facility]) Unspecified essential hypertension Gastro-esophageal reflux disease without esophagitis Allergic rhinitis, unspecified Bilateral lower extremity edema- Primary Morbid (severe) obesity due to excess calories ([facility]) Body mass index (BMI) 45.0-49.9, adult ([facility]) Pre-diabetes Other abnormal glucose Bilateral lower extremity edema- Primary Essential (primary) hypertension ([facility]) Unspecified essential hypertension Allergic rhinitis, unspecified OSMANY (obstructive sleep apnea) Obstructive sleep apnea (adult) (pediatric) Primary hypertension ([facility]) Unspecified essential hypertension Morbid obesity ([facility]) Morbid obesity Acute cystitis without hematuria- Primary Tobacco dependence Tobacco use disorder Needs flu shot Need for prophylactic vaccination and inoculation against influenza Morbid obesity ([facility]) Morbid obesity Well woman exam with routine gynecological exam- Primary Routine gynecological examination Morbid obesity ([facility]) Morbid obesity Restless leg Restless legs syndrome (RLS) Metabolic encephalopathy- Primary OSMANY (obstructive sleep apnea) Obstructive sleep apnea (adult) (pediatric) Morbid obesity ([facility]) Morbid obesity Bilateral lower extremity edema Tobacco dependence Tobacco use disorder Bipolar disorder with severe depression ([facility]) At risk for polypharmacy Anxiety Anxiety [...] Edema Pre-diabetes Other abnormal glucose Morbid obesity ([facility]) Morbid obesity Yeast infection of the skin Candidiasis of skin and nails Tobacco dependence Tobacco use disorder Mood disorder ([facility]) Unspecified episodic mood disorder Primary hypertension ([facility]) Unspecified essential hypertension Left hip pain Pain in joint, pelvic region and thigh Open wound of anterior abdominal wall, initial encounter Primary hypertension ([facility])- Primary Unspecified essential hypertension Yeast infection of the skin Candidiasis of skin and nails Morbid obesity (CMS/HCC) Morbid obesity Primary hypertension ([facility]/HCC)- Primary Unspecified essential hypertension Allergic rhinitis, unspecified Acute cough Morbid obesity ([facility]/HCC) Morbid obesity Former cigarette smoker Personal history of tobacco use, presenting hazards to health Toxic metabolic encephalopathy- Primary Hemiparesis, right ([facility]) Unspecified hemiplegia affecting unspecified side Acute respiratory failure with hypoxia ([facility]) Heart murmur Undiagnosed cardiac murmurs Primary hypertension ([facility]/HCC) Unspecified essential hypertension Morbid obesity ([facility]/HCC) Morbid obesity Bipolar disorder with severe depression ([facility]) Slurred speech Other speech disturbance Bilateral lower extremity edema- Primary Primary hypertension ([facility]/HCC) Unspecified essential hypertension Lower extremity edema Edema Essential (primary) hypertension ([facility]) Unspecified essential hypertension Gastro-esophageal reflux disease without esophagitis Allergic rhinitis, unspecified Bilateral lower extremity edema- Primary Morbid (severe) obesity due to excess calories ([facility]) Body mass index (BMI) 45.0-49.9, adult ([facility]) Pre-diabetes Other abnormal glucose Bilateral lower extremity edema- Primary Essential (primary) hypertension ([facility]/HCC) Unspecified essential hypertension Allergic rhinitis, unspecified OSMANY (obstructive sleep apnea) Obstructive sleep apnea (adult) (pediatric) Primary hypertension ([facility]/HCC) Unspecified essential hypertension Morbid obesity ([facility]) Morbid obesity Acute cystitis without hematuria- Primary Tobacco dependence Tobacco use disorder Needs flu shot Need for prophylactic vaccination and inoculation against influenza Morbid obesity (CMS/HCC) Morbid obesity Well woman exam with routine gynecological exam- Primary Routine gynecological examination Morbid obesity ([facility]/HCC) Morbid obesity Metabolic encephalopathy- Primary OSMANY (obstructive sleep apnea) Obstructive sleep apnea (adult) (pediatric) Morbid obesity ([facility]/HCC) Morbid obesity Bilateral lower extremity edema Tobacco dependence Tobacco use disorder Bipolar disorder with severe depression ([facility]) At risk for polypharmacy Anxiety Anxiety state, unspecified Primary hypertension ([facility]) Unspecified essential hypertension Right bundle branch block (RBBB) determined by electrocardiography documented in this encounter [facility]* Diagnosis Yeast infection of the skin- Primary Candidiasis of skin and nails documented in this encounter [facility]* Diagnosis 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[facility])- Primary Restless leg Restless legs syndrome (RLS) Metabolic encephalopathy documented in this encounter [facility]* Diagnosis OSMANY (obstructive sleep apnea)- Primary Obstructive sleep apnea (adult) (pediatric) Restless leg Restless legs syndrome (RLS) documented in this encounter [facility]* Diagnosis Bilateral lower extremity edema- Primary Essential (primary) hypertension (CMS/HCC) Unspecified essential hypertension Allergic rhinitis, unspecified OSMANY (obstructive sleep apnea) Obstructive sleep apnea (adult) (pediatric) Primary hypertension (CMS/HCC) Unspecified essential hypertension Morbid obesity (CMS/HCC) Morbid obesity documented in this encounter [facility]* Diagnosis Lower extremity edema Edema documented in this encounter [facility]* Diagnosis Encounter for annual [...] unspecified side Acute respiratory failure with hypoxia (CMS/[facility]) Heart murmur Undiagnosed cardiac murmurs Primary hypertension (CMS/HCC) Unspecified essential hypertension Morbid obesity (CMS/HCC) Morbid obesity Bipolar disorder with severe depression (CMS/[facility]) Slurred speech Other speech disturbance Bilateral lower extremity edema- Primary Primary hypertension (CMS/HCC) Unspecified essential hypertension Lower extremity edema Edema Essential (primary) hypertension (CMS/HCC) Unspecified essential hypertension Gastro-esophageal reflux disease without esophagitis Allergic rhinitis, unspecified Bilateral lower extremity edema- Primary Morbid (severe) obesity due to excess calories ([facility]) Body mass index (BMI) 45.0-49.9, adult ([facility]) Pre-diabetes Other abnormal glucose Bilateral lower extremity edema- Primary Essential (primary) hypertension ([facility]) Unspecified essential hypertension Allergic rhinitis, unspecified OSMANY (obstructive sleep apnea) Obstructive sleep apnea (adult) (pediatric) Primary hypertension ([facility]) Unspecified essential hypertension Morbid obesity ([facility]) Morbid obesity Acute cystitis without hematuria- Primary Tobacco dependence Tobacco use disorder Needs flu shot Need for prophylactic vaccination and inoculation against influenza Morbid obesity ([facility]) Morbid obesity Well woman exam with routine gynecological exam- Primary Routine gynecological examination Morbid obesity ([facility]) Morbid obesity Metabolic encephalopathy- Primary OSMANY (obstructive sleep apnea) Obstructive sleep apnea (adult) (pediatric) Morbid obesity ([facility]) Morbid obesity Bilateral lower extremity edema Tobacco dependence Tobacco use disorder Bipolar disorder with severe depression ([facility]) At risk for polypharmacy Anxiety Anxiety state, unspecified Primary hypertension ([facility]) Unspecified essential hypertension Right bundle branch block (RBBB) determined by electrocardiography Metabolic encephalopathy- Primary Memory change Memory loss Altered mental status, unspecified altered mental status type Concentration deficit PTSD (post-traumatic stress disorder) ([facility]) Posttraumatic stress disorder Bipolar affective disorder, remission status unspecified ([facility]) Family history of dementia Family history of other neurological diseases 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[facility]) OSMANY (obstructive sleep apnea) Obstructive sleep apnea (adult) (pediatric) documented in this encounter [facility]* Diagnosis Encounter for annual wellness visit (AWV) in Medicare patient- Primary OSMANY (obstructive sleep apnea) Obstructive sleep apnea (adult) (pediatric) Chronic pain disorder Chronic pain syndrome Gastroesophageal reflux disease, unspecified whether esophagitis present Overactive bladder Hypertonicity of bladder Lower extremity edema Edema Pre-diabetes Other abnormal glucose Morbid obesity ([facility]) Morbid obesity Yeast infection of the skin Candidiasis of skin and nails Tobacco dependence Tobacco use disorder Mood disorder ([facility]) Unspecified episodic mood disorder Primary hypertension ([facility]) Unspecified essential hypertension Left hip pain Pain in joint, pelvic region and thigh Open wound of anterior abdominal wall, initial encounter Primary hypertension ([facility])- Primary Unspecified essential hypertension Yeast infection of the skin Candidiasis of skin and nails Morbid obesity ([facility]) Morbid obesity Primary hypertension ([facility])- Primary Unspecified essential hypertension Allergic rhinitis, unspecified Acute cough Morbid obesity ([facility]) Morbid obesity Former cigarette smoker Personal history of tobacco use, presenting hazards to health Toxic metabolic encephalopathy- Primary Hemiparesis, right ([facility]) Unspecified hemiplegia affecting unspecified side Acute respiratory failure with hypoxia ([facility]) Heart murmur Undiagnosed cardiac murmurs Primary hypertension ([facility]) Unspecified essential hypertension Morbid obesity ([facility]) Morbid obesity Bipolar disorder with severe depression ([facility]) Slurred speech Other speech disturbance Bilateral lower extremity edema- Primary Primary hypertension ([facility]) Unspecified essential hypertension Lower extremity edema Edema Essential (primary) hypertension ([facility]) Unspecified essential hypertension Gastro-esophageal reflux disease without esophagitis Allergic rhinitis, unspecified Bilateral lower extremity edema- Primary Morbid (severe) obesity due to excess calories ([facility]) Body mass index (BMI) 45.0-49.9, adult ([facility]) Pre-diabetes Other abnormal glucose Bilateral lower extremity edema- Primary Essential (primary) hypertension ([facility]) Unspecified essential hypertension Allergic rhinitis, unspecified OSMANY (obstructive sleep apnea) Obstructive sleep apnea (adult) (pediatric) Primary hypertension ([facility]) Unspecified essential hypertension Morbid obesity ([facility]) Morbid obesity Acute cystitis without hematuria- Primary Tobacco dependence Tobacco use disorder Needs flu shot Need for prophylactic vaccination and inoculation against influenza Morbid obesity ([facility]) Morbid obesity Well woman exam with routine gynecological exam- Primary Routine gynecological examination Morbid obesity ([facility]) Morbid obesity Metabolic encephalopathy- Primary OSMANY (obstructive sleep apnea) Obstructive sleep apnea (adult) (pediatric) Morbid obesity ([facility]) Morbid obesity Bilateral lower extremity edema Tobacco dependence Tobacco use disorder Bipolar disorder with severe depression ([facility]) At risk for polypharmacy Anxiety Anxiety state, unspecified Primary hypertension ([facility]) Unspecified essential hypertension Right bundle branch [...] Edema Pre-diabetes Other abnormal glucose Morbid obesity ([facility]) Morbid obesity Yeast infection of the skin Candidiasis of skin and nails Tobacco dependence Tobacco use disorder Mood disorder ([facility]) Unspecified episodic mood disorder Primary hypertension ([facility]/HCC) Unspecified essential hypertension Left hip pain Pain in joint, pelvic region and thigh Open wound of anterior abdominal wall, initial encounter Primary hypertension ([facility]/HCC)- Primary Unspecified essential hypertension Yeast infection of the skin Candidiasis of skin and nails Morbid obesity ([facility]/HCC) Morbid obesity Primary hypertension ([facility]/HCC)- Primary Unspecified essential hypertension Allergic rhinitis, unspecified Acute cough Morbid obesity (CMS/HCC) Morbid obesity Former cigarette smoker Personal history of tobacco use, presenting hazards to health Toxic metabolic encephalopathy- Primary Hemiparesis, right (CMS/[facility]) Unspecified hemiplegia affecting unspecified side Acute respiratory failure with hypoxia ([facility]) Heart murmur Undiagnosed cardiac murmurs Primary hypertension ([facility]) Unspecified essential hypertension Morbid obesity ([facility]) Morbid obesity Bipolar disorder with severe depression ([facility]) Slurred speech Other speech disturbance Bilateral lower extremity edema- Primary Primary hypertension ([facility]/HCC) Unspecified essential hypertension Lower extremity edema Edema Essential (primary) hypertension ([facility]) Unspecified essential hypertension Gastro-esophageal reflux disease without esophagitis Allergic rhinitis, unspecified Bilateral lower extremity edema- Primary Morbid (severe) obesity due to excess calories ([facility]) Body mass index (BMI) 45.0-49.9, adult ([facility]) Pre-diabetes Other abnormal glucose Bilateral lower extremity edema- Primary Essential (primary) hypertension ([facility]/HCC) Unspecified essential hypertension Allergic rhinitis, unspecified OSMANY (obstructive sleep apnea) Obstructive sleep apnea (adult) (pediatric) Primary hypertension ([facility]) Unspecified essential hypertension Morbid obesity ([facility]) Morbid obesity Acute cystitis without hematuria- Primary Tobacco dependence Tobacco use disorder Needs flu shot Need for prophylactic vaccination and inoculation against influenza Morbid obesity ([facility]/HCC) Morbid obesity Well woman exam with routine gynecological exam- Primary Routine gynecological examination Morbid obesity ([facility]/HCC) Morbid obesity Metabolic encephalopathy- Primary OSMANY (obstructive sleep apnea) Obstructive sleep apnea (adult) (pediatric) Morbid obesity ([facility]) Morbid obesity Bilateral lower extremity edema Tobacco dependence Tobacco use disorder Bipolar disorder with severe depression ([facility]) At risk for polypharmacy Anxiety Anxiety state, unspecified Primary hypertension ([facility]) Unspecified essential hypertension Right bundle branch block (RBBB) determined by electrocardiography Primary hypertension ([facility])- Primary Unspecified essential hypertension Chronic kidney disease, stage 3a (HCC) ([facility]) Morbid (severe) obesity due to excess calories ([facility]) Body mass index (BMI) 45.0-49.9, adult ([facility]/HCC) OSMANY (obstructive sleep apnea) Obstructive sleep apnea (adult) (pediatric) Hemiparesis, right (CMS/HCC) Unspecified hemiplegia affecting unspecified side Gastroesophageal reflux disease, unspecified whether esophagitis present Metabolic encephalopathy Essential (primary) hypertension (CMS/HCC) Unspecified essential hypertension Allergic rhinitis, unspecified Gastro-esophageal reflux disease without esophagitis Bilateral lower extremity edema documented in this encounter [facility] HealthcareEvaluation note* Diagnosis Encounter for [...] (CMS/HCC) Unspecified episodic mood disorder Primary hypertension ([facility]) Unspecified essential hypertension Left hip pain Pain in joint, pelvic region and thigh Open wound of anterior abdominal wall, initial encounter Primary hypertension (CMS/HCC)- Primary Unspecified essential hypertension Yeast infection of the skin Candidiasis of skin and nails Morbid obesity ([facility]/HCC) Morbid obesity Primary hypertension ([facility]/HCC)- Primary Unspecified essential hypertension Allergic rhinitis, unspecified Acute cough Morbid obesity ([facility]/HCC) Morbid obesity Former cigarette smoker Personal history of tobacco use, presenting hazards to health Toxic metabolic encephalopathy- Primary Hemiparesis, right ([facility]) Unspecified hemiplegia affecting unspecified side Acute respiratory failure with hypoxia ([facility]) Heart murmur Undiagnosed cardiac murmurs Primary hypertension (CMS/HCC) Unspecified essential hypertension Morbid obesity (CMS/HCC) Morbid obesity Bipolar disorder with severe depression ([facility]) Slurred speech Other speech disturbance Bilateral lower extremity edema- Primary Primary hypertension (CMS/HCC) Unspecified essential hypertension Lower extremity edema Edema Essential (primary) hypertension (CMS/HCC) Unspecified essential hypertension Gastro-esophageal reflux disease without esophagitis Allergic rhinitis, unspecified Bilateral lower extremity edema- Primary Morbid (severe) obesity due to excess calories ([facility]) Body mass index (BMI) 45.0-49.9, adult ([facility]) Pre-diabetes Other abnormal glucose Bilateral lower extremity edema- Primary Essential (primary) hypertension ([facility]/HCC) Unspecified essential hypertension Allergic rhinitis, unspecified OSMANY (obstructive sleep apnea) Obstructive sleep apnea (adult) (pediatric) Primary hypertension ([facility]) Unspecified essential hypertension Morbid obesity ([facility]) Morbid obesity Acute cystitis without hematuria- Primary Tobacco dependence Tobacco use disorder Needs flu shot Need for prophylactic vaccination and inoculation against influenza Morbid obesity ([facility]/HCC) Morbid obesity Well woman exam with routine gynecological exam- Primary Routine gynecological examination Morbid obesity ([facility]/HCC) Morbid obesity Metabolic encephalopathy- Primary OSMANY (obstructive sleep apnea) Obstructive sleep apnea (adult) (pediatric) Morbid obesity ([facility]/HCC) Morbid obesity Bilateral lower extremity edema Tobacco dependence Tobacco use disorder Bipolar disorder with severe depression ([facility]) At risk for polypharmacy Anxiety Anxiety state, unspecified Primary hypertension ([facility]) Unspecified essential hypertension Right bundle branch block (RBBB) determined by electrocardiography Primary hypertension ([facility])- Primary Unspecified essential hypertension Chronic kidney disease, stage 3a ([facility]) ([facility]) Morbid (severe) obesity due to excess calories ([facility]) Body mass index (BMI) 45.0-49.9, adult ([facility]) OSMANY (obstructive sleep apnea) Obstructive sleep apnea (adult) (pediatric) Hemiparesis, right ([facility]) Unspecified hemiplegia affecting unspecified side Gastroesophageal reflux disease, unspecified whether esophagitis present Metabolic encephalopathy Essential (primary) hypertension ([facility]) Unspecified essential hypertension Allergic rhinitis, unspecified Gastro-esophageal reflux disease without esophagitis Bilateral lower extremity edema 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 ([facility])- Primary OSMANY (obstructive sleep apnea) Obstructive sleep apnea (adult) (pediatric) Metabolic encephalopathy Restless leg Restless legs syndrome (RLS) Degeneration of intervertebral disc of lumbar region with discogenic back pain and lower extremity pain documented in this encounter [facility] HealthcareEvaluation note* Diagnosis Encounter for annual wellness visit (AWV) in Medicare patient- Primary OSMANY (obstructive sleep apnea) Obstructive sleep apnea (adult) (pediatric) Chronic pain disorder Chronic pain syndrome Gastroesophageal reflux disease, unspecified whether esophagitis present Overactive bladder Hypertonicity of bladder Lower extremity edema Edema Pre-diabetes Other abnormal glucose Morbid obesity ([facility]/HCC) Morbid obesity Yeast infection of the skin Candidiasis of skin and nails Tobacco dependence Tobacco use disorder Mood disorder ([facility]/HCC) Unspecified episodic mood disorder Primary hypertension ([facility]) Unspecified essential hypertension Left hip pain Pain in joint, pelvic region and thigh Open wound of anterior abdominal wall, initial encounter Primary hypertension ([facility]/HCC)- Primary Unspecified essential hypertension Yeast infection of the skin Candidiasis of skin and nails Morbid obesity ([facility]/HCC) Morbid obesity Primary hypertension ([facility]/HCC)- Primary Unspecified essential hypertension Allergic rhinitis, unspecified Acute cough Morbid obesity ([facility]) Morbid obesity Former cigarette smoker Personal history of tobacco use, presenting hazards to health Toxic metabolic encephalopathy- Primary Hemiparesis, right ([facility]) Unspecified hemiplegia affecting unspecified side Acute respiratory failure with hypoxia ([facility]) Heart murmur Undiagnosed cardiac murmurs Primary hypertension ([facility]) Unspecified essential hypertension Morbid obesity ([facility]) Morbid obesity Bipolar disorder with severe depression ([facility]) Slurred speech Other speech disturbance Bilateral lower extremity edema- Primary Primary hypertension ([facility]) Unspecified essential hypertension Lower extremity edema Edema Essential (primary) hypertension ([facility]) Unspecified essential hypertension Gastro-esophageal reflux disease without esophagitis Allergic rhinitis, unspecified Bilateral lower extremity edema- Primary Morbid (severe) obesity due to excess calories ([facility]) Body mass index (BMI) 45.0-49.9, adult ([facility]) Pre-diabetes Other abnormal glucose Bilateral lower extremity edema- Primary Essential (primary) hypertension ([facility]) Unspecified essential hypertension Allergic rhinitis, unspecified OSMANY (obstructive sleep apnea) Obstructive sleep apnea (adult) (pediatric) Primary hypertension ([facility]) Unspecified essential hypertension Morbid obesity ([facility]) Morbid obesity Acute cystitis without hematuria- Primary Tobacco dependence Tobacco use disorder Needs flu shot Need for prophylactic vaccination and inoculation against influenza Morbid obesity ([facility]/HCC) Morbid obesity Well woman exam with routine gynecological exam- Primary Routine gynecological examination Morbid obesity ([facility]/HCC) Morbid obesity Metabolic encephalopathy- Primary OSMANY (obstructive sleep apnea) Obstructive sleep apnea (adult) (pediatric) Morbid obesity ([facility]) Morbid obesity Bilateral lower extremity edema Tobacco dependence Tobacco use disorder Bipolar disorder with severe depression ([facility]) At risk for polypharmacy Anxiety Anxiety state, unspecified Primary hypertension ([facility]) Unspecified essential hypertension Right bundle branch block (RBBB) determined by electrocardiography Primary hypertension ([facility])- Primary Unspecified essential hypertension Chronic kidney disease, stage 3a (HCC) (CMS/HCC) Morbid (severe) obesity due to excess calories [...] legs syndrome (RLS) documented in this encounter [facility] HealthcareEvaluation note* Diagnosis Encounter for [...] unspecified side Acute respiratory failure with hypoxia (CMS/HCC) Heart murmur Undiagnosed cardiac murmurs Primary hypertension [...] (CMS/HCC) Body mass index (BMI) 45.0-49.9, adult ([facility]) Pre-diabetes Other abnormal glucose Bilateral lower extremity edema- Primary Essential (primary) hypertension ([facility]) Unspecified essential hypertension Allergic rhinitis, unspecified OSMANY (obstructive sleep apnea) Obstructive sleep apnea (adult) (pediatric) Primary hypertension ([facility]) Unspecified essential hypertension Morbid obesity ([facility]) Morbid obesity Acute cystitis without hematuria- Primary Tobacco dependence Tobacco use disorder Needs flu shot Need for prophylactic vaccination and inoculation against influenza Morbid obesity ([facility]) Morbid obesity Well woman exam with routine gynecological exam- Primary Routine gynecological examination Morbid obesity ([facility]) Morbid obesity Metabolic encephalopathy- Primary OSMANY (obstructive sleep apnea) Obstructive sleep apnea (adult) (pediatric) Morbid obesity ([facility]) Morbid obesity Bilateral lower extremity edema Tobacco dependence Tobacco use disorder Bipolar disorder with severe depression ([facility]) At risk for polypharmacy Anxiety Anxiety state, unspecified Primary hypertension ([facility]) Unspecified essential hypertension Right bundle branch block (RBBB) determined by electrocardiography Primary hypertension ([facility])- Primary Unspecified essential hypertension Chronic kidney disease, stage 3a (HCC) ([facility]) Morbid (severe) obesity due to excess calories ([facility]) Body mass index (BMI) 45.0-49.9, adult ([facility]) OSMANY (obstructive sleep apnea) Obstructive sleep apnea (adult) (pediatric) Hemiparesis, right ([facility]) Unspecified hemiplegia affecting unspecified side Gastroesophageal reflux disease, unspecified whether esophagitis present Metabolic encephalopathy Essential (primary) hypertension ([facility]) Unspecified essential hypertension Allergic rhinitis, unspecified Gastro-esophageal reflux disease without esophagitis Bilateral lower extremity edema URI, acute- Primary Acute upper respiratory infections of unspecified site documented in this encounter [facility] HealthcareEvaluation note* Diagnosis Encounter for annual wellness visit (AWV) in Medicare patient- Primary OSMANY (obstructive sleep apnea) Obstructive sleep apnea (adult) (pediatric) Chronic pain disorder Chronic pain syndrome Gastroesophageal reflux disease, unspecified whether esophagitis present Overactive bladder Hypertonicity of bladder Lower extremity edema Edema Pre-diabetes Other abnormal glucose Morbid obesity ([facility]) Morbid obesity Yeast infection of the skin Candidiasis of skin and nails Tobacco dependence Tobacco use disorder Mood disorder ([facility]) Unspecified episodic mood disorder Primary hypertension ([facility]) Unspecified essential hypertension Left [...] unspecified side Acute respiratory failure with hypoxia (CMS/[facility]) Heart murmur Undiagnosed cardiac murmurs Primary hypertension (CMS/HCC) Unspecified essential hypertension Morbid obesity (CMS/HCC) Morbid obesity Bipolar disorder with severe depression (CMS/[facility]) Slurred speech Other speech disturbance Bilateral lower extremity edema- Primary Primary hypertension (CMS/HCC) Unspecified essential hypertension Lower extremity edema Edema Essential (primary) hypertension (CMS/HCC) Unspecified essential hypertension Gastro-esophageal reflux disease without esophagitis Allergic rhinitis, unspecified Bilateral lower extremity edema- Primary Morbid (severe) obesity due to excess calories ([facility]) Body mass index (BMI) 45.0-49.9, adult ([facility]) Pre-diabetes Other abnormal glucose Bilateral lower extremity edema- Primary Essential (primary) hypertension (CMS/HCC) Unspecified essential hypertension Allergic rhinitis, unspecified OSMANY (obstructive sleep apnea) Obstructive sleep apnea (adult) (pediatric) Primary hypertension ([facility]/HCC) Unspecified essential hypertension Morbid obesity ([facility]) Morbid obesity Acute cystitis without hematuria- Primary Tobacco dependence Tobacco use disorder Needs flu shot Need for prophylactic vaccination and inoculation against influenza Morbid obesity (CMS/HCC) Morbid obesity Well woman exam with routine gynecological exam- Primary Routine gynecological examination Morbid obesity (CMS/HCC) Morbid obesity Metabolic encephalopathy- Primary OSMANY (obstructive sleep apnea) Obstructive sleep apnea (adult) (pediatric) Morbid obesity ([facility]/HCC) Morbid obesity Bilateral lower extremity edema Tobacco dependence Tobacco use disorder Bipolar disorder with severe depression ([facility]) At risk for polypharmacy Anxiety Anxiety state, unspecified Primary hypertension ([facility]/HCC) Unspecified essential hypertension Right bundle branch block (RBBB) determined by electrocardiography Primary hypertension (CMS/HCC)- Primary Unspecified essential hypertension Chronic kidney disease, stage 3a (HCC) ([facility]) Morbid (severe) obesity due to excess calories ([facility]) Body mass index (BMI) 45.0-49.9, adult ([facility]/HCC) OSMANY (obstructive sleep apnea) Obstructive sleep [...] leg Restless legs syndrome (RLS) 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CMS/HCC) Concentration deficit documented in this encounter [facility] HealthcareEvaluation note* Diagnosis Encounter for annual [...] Tobacco dependence Tobacco use disorder Mood disorder (CMS/[facility]) Unspecified episodic mood disorder Primary hypertension ([facility]/HCC) Unspecified essential hypertension Left hip pain Pain in joint, pelvic region and thigh Open wound of anterior abdominal wall, initial encounter Primary hypertension ([facility]/HCC)- Primary Unspecified essential hypertension Yeast infection of the skin Candidiasis of skin and nails Morbid obesity (CMS/HCC) Morbid obesity Primary hypertension ([facility]/HCC)- Primary Unspecified essential hypertension Allergic rhinitis, unspecified Acute cough Morbid obesity (CMS/HCC) Morbid obesity Former cigarette smoker Personal history of tobacco use, presenting hazards to health Toxic metabolic encephalopathy- Primary Hemiparesis, right (CMS/[facility]) Unspecified hemiplegia affecting unspecified side Acute respiratory failure with hypoxia (CMS/[facility]) Heart murmur Undiagnosed cardiac murmurs Primary hypertension (CMS/HCC) Unspecified essential hypertension Morbid obesity (CMS/HCC) Morbid obesity Bipolar disorder with severe depression (CMS/[facility]) Slurred speech Other speech disturbance Bilateral lower extremity edema- Primary Primary hypertension (CMS/HCC) Unspecified essential hypertension Lower extremity edema Edema Essential (primary) hypertension (CMS/HCC) Unspecified essential hypertension Gastro-esophageal reflux disease without esophagitis Allergic rhinitis, unspecified Bilateral lower extremity edema- Primary Morbid (severe) obesity due to excess calories ([facility]) Body mass index (BMI) 45.0-49.9, adult ([facility]) Pre-diabetes Other abnormal glucose Bilateral lower extremity edema- Primary Essential (primary) hypertension ([facility]) Unspecified essential hypertension Allergic rhinitis, unspecified OSMANY (obstructive sleep apnea) Obstructive sleep apnea (adult) (pediatric) Primary hypertension ([facility]) Unspecified essential hypertension Morbid obesity ([facility]) Morbid obesity Acute cystitis without hematuria- Primary Tobacco dependence Tobacco use disorder Needs flu shot Need for prophylactic vaccination and inoculation against influenza Morbid obesity ([facility]) Morbid obesity Well woman exam with routine gynecological exam- Primary Routine gynecological examination Morbid obesity ([facility]) Morbid obesity Metabolic encephalopathy- Primary OSMANY (obstructive sleep apnea) Obstructive sleep apnea (adult) (pediatric) Morbid obesity ([facility]) Morbid obesity Bilateral lower extremity edema Tobacco dependence Tobacco use disorder Bipolar disorder with severe depression ([facility]) At risk for polypharmacy Anxiety Anxiety state, unspecified Primary hypertension ([facility]) Unspecified essential hypertension Right bundle branch block (RBBB) determined by electrocardiography Primary hypertension ([facility])- Primary Unspecified essential hypertension Chronic kidney disease, stage 3a (HCC) ([facility]) Morbid (severe) obesity due to excess calories ([facility]) Body mass index (BMI) 45.0-49.9, adult ([facility]) OSMANY (obstructive sleep apnea) Obstructive sleep apnea (adult) (pediatric) Hemiparesis, right ([facility]) Unspecified hemiplegia affecting unspecified side Gastroesophageal reflux disease, unspecified whether esophagitis present Metabolic encephalopathy Essential (primary) hypertension ([facility]) Unspecified essential hypertension Allergic rhinitis, unspecified Gastro-esophageal reflux disease without esophagitis Bilateral lower extremity edema Primary hypertension ([facility])- Primary Unspecified essential hypertension Morbid (severe) obesity due to excess calories ([facility]) Essential (primary) hypertension ([facility]) Unspecified essential hypertension Allergic rhinitis, unspecified Gastro-esophageal reflux disease without esophagitis Bilateral lower extremity edema Bronchitis Bronchitis, not specified as acute or chronic documented in this encounter [facility] HealthcareEvaluation note* Diagnosis Encounter for annual wellness visit (AWV) in Medicare patient- Primary OSMANY (obstructive sleep apnea) Obstructive sleep apnea (adult) (pediatric) Chronic pain disorder Chronic pain syndrome Gastroesophageal reflux disease, unspecified whether esophagitis present Overactive bladder Hypertonicity of bladder Lower extremity edema Edema Pre-diabetes Other abnormal glucose Morbid obesity ([facility]) Morbid obesity Yeast infection of the skin Candidiasis of skin and nails Tobacco dependence Tobacco use disorder Mood disorder ([facility]/HCC) Unspecified episodic mood disorder Primary hypertension ([facility]/HCC) Unspecified essential hypertension Left hip pain Pain in joint, pelvic region and thigh Open wound of anterior abdominal wall, initial encounter Primary hypertension ([facility]/HCC)- Primary Unspecified essential hypertension Yeast infection of the skin Candidiasis of skin and nails Morbid obesity (CMS/HCC) Morbid obesity Primary hypertension (CMS/HCC)- Primary Unspecified essential hypertension Allergic rhinitis, unspecified Acute cough Morbid obesity ([facility]) Morbid obesity Former cigarette smoker Personal history of tobacco use, presenting hazards to health Toxic metabolic encephalopathy- Primary Hemiparesis, right ([facility]) Unspecified hemiplegia affecting unspecified side Acute respiratory failure with hypoxia ([facility]) Heart murmur Undiagnosed cardiac murmurs Primary hypertension ([facility]) Unspecified essential hypertension Morbid obesity ([facility]) Morbid obesity Bipolar disorder with severe depression ([facility]) Slurred speech Other speech disturbance Bilateral lower extremity edema- Primary Primary hypertension ([facility]) Unspecified essential hypertension Lower extremity edema Edema Essential (primary) hypertension ([facility]) Unspecified essential hypertension Gastro-esophageal reflux disease without esophagitis Allergic rhinitis, unspecified Bilateral lower extremity edema- Primary Morbid (severe) obesity due to excess calories ([facility]) Body mass index (BMI) 45.0-49.9, adult ([facility]) Pre-diabetes Other abnormal glucose Bilateral lower extremity edema- Primary Essential (primary) hypertension ([facility]/HCC) Unspecified essential hypertension Allergic rhinitis, unspecified OSMANY (obstructive sleep apnea) Obstructive sleep apnea (adult) (pediatric) Primary hypertension ([facility]) Unspecified essential hypertension Morbid obesity ([facility]) Morbid obesity Well woman exam with routine gynecological exam- Primary Routine gynecological examination Morbid obesity ([facility]/HCC) Morbid obesity Metabolic encephalopathy- Primary OSMANY (obstructive sleep apnea) Obstructive sleep apnea (adult) (pediatric) Morbid obesity ([facility]/HCC) Morbid obesity Bilateral lower extremity edema Tobacco dependence Tobacco use disorder Bipolar disorder with severe depression ([facility]) At risk for polypharmacy Anxiety Anxiety state, unspecified Primary hypertension ([facility]/HCC) Unspecified essential hypertension Right bundle branch block (RBBB) determined by electrocardiography Primary hypertension ([facility]/HCC)- Primary Unspecified essential hypertension Chronic kidney disease, stage 3a (HCC) ([facility]) Morbid (severe) obesity due to excess [...] hazards to health documented in this encounter [facility] HealthcareEvaluation note* Diagnosis Encounter for annual wellness visit (AWV) in Medicare patient- Primary OSMANY (obstructive sleep apnea) Obstructive sleep apnea (adult) (pediatric) Chronic pain disorder Chronic pain syndrome Gastroesophageal reflux disease, unspecified whether esophagitis present Overactive bladder Hypertonicity of bladder Lower extremity edema Edema Pre-diabetes Other abnormal glucose Morbid obesity (CMS-HCC) Morbid obesity Yeast infection of the skin [...] Candidiasis of skin and nails Morbid obesity (CMS-HCC) Morbid obesity Primary hypertension- Primary Unspecified essential hypertension Allergic rhinitis, unspecified Acute cough Morbid obesity (CMS-HCC) Morbid obesity Former cigarette smoker Personal history of tobacco use, presenting hazards to health Toxic metabolic encephalopathy- Primary Hemiparesis, right (HCC) Unspecified hemiplegia affecting unspecified side Acute respiratory failure with hypoxia (HCC) Heart murmur Undiagnosed cardiac murmurs Primary hypertension Unspecified essential hypertension Morbid obesity (CMS-HCC) Morbid obesity Bipolar disorder with severe depression (HCC) Slurred speech Other speech disturbance Bilateral lower extremity edema- Primary Primary hypertension Unspecified essential hypertension Lower extremity edema Edema Essential (primary) hypertension Unspecified essential hypertension Gastro-esophageal reflux disease without esophagitis Allergic rhinitis, unspecified Bilateral lower extremity edema- Primary Morbid (severe) obesity due to excess calories ([facility] Body mass index (BMI) 45.0-49.9, adult ([facility]) Pre-diabetes Other abnormal glucose Bilateral lower extremity edema- Primary Essential (primary) hypertension Unspecified essential hypertension Allergic rhinitis, unspecified OSMANY (obstructive sleep apnea) Obstructive sleep apnea (adult) (pediatric) Primary hypertension Unspecified essential hypertension Morbid obesity ([facility] Morbid obesity Well woman exam with routine gynecological exam- Primary Routine gynecological examination Morbid obesity ([facility] Morbid obesity Metabolic encephalopathy- Primary OSMANY (obstructive sleep apnea) Obstructive sleep apnea (adult) (pediatric) Morbid obesity ([facility]) Morbid obesity Bilateral lower extremity edema Tobacco dependence Tobacco use disorder Bipolar disorder with severe depression ([facility]) At risk for polypharmacy Anxiety Anxiety state, unspecified Primary hypertension Unspecified essential hypertension Right bundle branch block (RBBB) determined by electrocardiography Primary hypertension- Primary Unspecified essential hypertension Chronic kidney disease, stage 3a ([facility]) Morbid (severe) obesity due to excess calories ([facility] Body mass index (BMI) 45.0-49.9, adult ([facility] OSMANY (obstructive sleep apnea) Obstructive sleep apnea (adult) (pediatric) Hemiparesis, right ([facility]) Unspecified hemiplegia affecting unspecified side Gastroesophageal reflux disease, unspecified whether esophagitis present Metabolic encephalopathy Essential (primary) hypertension Unspecified essential hypertension Allergic rhinitis, unspecified Gastro-esophageal reflux disease without esophagitis Bilateral lower extremity edema Primary hypertension- Primary Unspecified essential hypertension Morbid (severe) obesity due to excess calories ([facility]) Essential (primary) hypertension Unspecified essential hypertension Allergic rhinitis, unspecified Gastro-esophageal reflux disease without esophagitis Bilateral lower extremity edema Bronchitis Bronchitis, not specified as acute or chronic Primary hypertension- Primary Unspecified essential hypertension Bronchitis Bronchitis, not specified as acute or chronic Bilateral lower extremity edema Morbid (severe) obesity due to excess calories ([facility]) Pre-diabetes Other abnormal glucose Allergic rhinitis, unspecified [...] pathological fracture presence documented in this encounter [facility] HealthcareEvaluation note* Diagnosis Encounter for annual wellness visit (AWV) in Medicare patient- Primary OSMANY (obstructive sleep apnea) Obstructive sleep apnea (adult) (pediatric) Chronic pain disorder Chronic pain syndrome Gastroesophageal reflux disease, unspecified whether esophagitis present Overactive bladder Hypertonicity of bladder Lower extremity edema Edema Pre-diabetes Other abnormal glucose Morbid obesity ([facility]) Morbid obesity Yeast infection of the skin [...] Candidiasis of skin and nails Morbid obesity ([facility]) Morbid obesity Primary hypertension- Primary Unspecified essential hypertension Allergic rhinitis, unspecified Acute cough Morbid obesity ([facility]) Morbid obesity Former cigarette smoker Personal history of tobacco use, presenting hazards to health Toxic metabolic encephalopathy- Primary Hemiparesis, right (HCC) Unspecified hemiplegia affecting unspecified side Acute respiratory failure with hypoxia ([facility]) Heart murmur Undiagnosed cardiac murmurs Primary hypertension Unspecified essential hypertension Morbid obesity ([facility]) Morbid obesity Bipolar disorder with severe depression ([facility]) Slurred speech Other speech disturbance Bilateral lower extremity edema- Primary Primary hypertension Unspecified essential hypertension Lower extremity edema Edema Essential (primary) hypertension Unspecified essential hypertension Gastro-esophageal reflux disease without esophagitis Allergic rhinitis, unspecified Bilateral lower extremity edema- Primary Morbid (severe) obesity due to excess calories ([facility] Body mass index (BMI) 45.0-49.9, adult ([facility] Pre-diabetes Other abnormal glucose Bilateral lower extremity edema- Primary Essential (primary) hypertension Unspecified essential hypertension Allergic rhinitis, unspecified OSMANY (obstructive sleep apnea) Obstructive sleep apnea (adult) (pediatric) Primary hypertension Unspecified essential hypertension Morbid obesity ([facility] Morbid obesity Well woman exam with routine gynecological exam- Primary Routine gynecological examination Morbid obesity ([facility] Morbid obesity Metabolic encephalopathy- Primary OSMANY (obstructive sleep apnea) Obstructive sleep apnea (adult) (pediatric) Morbid obesity ([facility]) Morbid obesity Bilateral lower extremity edema Tobacco dependence Tobacco use disorder Bipolar disorder with severe depression (HCC) At risk for polypharmacy Anxiety Anxiety state, unspecified Primary hypertension Unspecified essential hypertension Right bundle branch block (RBBB) determined by electrocardiography Primary hypertension- Primary Unspecified essential hypertension Chronic kidney disease, stage 3a ([facility] Morbid (severe) obesity due to excess calories ([facility] Body mass index (BMI) 45.0-49.9, adult ([facility] OSMANY (obstructive sleep apnea) Obstructive sleep apnea (adult) (pediatric) Hemiparesis, right ([facility]) Unspecified hemiplegia affecting unspecified side Gastroesophageal reflux disease, unspecified whether esophagitis present Metabolic encephalopathy Essential (primary) hypertension Unspecified essential hypertension Allergic rhinitis, unspecified Gastro-esophageal reflux disease without esophagitis Bilateral lower extremity edema Primary hypertension- Primary Unspecified essential hypertension Morbid (severe) obesity due to excess calories ([facility]) Essential (primary) hypertension Unspecified essential hypertension Allergic rhinitis, unspecified Gastro-esophageal reflux disease without esophagitis Bilateral lower extremity edema Bronchitis Bronchitis, not specified as acute or chronic Primary hypertension- Primary Unspecified essential hypertension Bronchitis Bronchitis, not specified as acute or chronic Bilateral lower extremity edema Morbid (severe) obesity due to excess calories ([facility] Pre-diabetes Other abnormal glucose Allergic rhinitis, unspecified [...] Primary osteoarthritis of right knee Morbid obesity ([facility]) Morbid obesity documented in this encounter [facility]* Diagnosis Encounter for annual wellness visit (AWV) in Medicare patient- Primary OSMANY (obstructive sleep apnea) Obstructive sleep apnea (adult) (pediatric) Chronic pain disorder Chronic pain syndrome Gastroesophageal reflux disease, unspecified whether esophagitis present Overactive bladder Hypertonicity of bladder Lower extremity edema Edema Pre-diabetes Other abnormal glucose Morbid obesity ([facility]) Morbid obesity Yeast infection of the skin [...] Candidiasis of skin and nails Morbid obesity ([facility]) Morbid obesity Primary hypertension- Primary Unspecified essential hypertension Allergic rhinitis, unspecified Acute cough Morbid obesity ([facility]) Morbid obesity Former cigarette smoker Personal history of tobacco use, presenting hazards to health Toxic metabolic encephalopathy- Primary Hemiparesis, right (HCC) Unspecified hemiplegia affecting unspecified side Acute respiratory failure with hypoxia ([facility]) Heart murmur Undiagnosed cardiac murmurs Primary hypertension Unspecified essential hypertension Morbid obesity ([facility]) Morbid obesity Bipolar disorder with severe depression ([facility]) Slurred speech Other speech disturbance Bilateral lower extremity edema- Primary Primary hypertension Unspecified essential hypertension Lower extremity edema Edema Essential (primary) hypertension Unspecified essential hypertension Gastro-esophageal reflux disease without esophagitis Allergic rhinitis, unspecified Bilateral lower extremity edema- Primary Morbid (severe) obesity due to excess calories ([facility] Body mass index (BMI) 45.0-49.9, adult ([facility] Pre-diabetes Other abnormal glucose Bilateral lower extremity edema- Primary Essential (primary) hypertension Unspecified essential hypertension Allergic rhinitis, unspecified OSMANY (obstructive sleep apnea) Obstructive sleep apnea (adult) (pediatric) Primary hypertension Unspecified essential hypertension Morbid obesity ([facility] Morbid obesity Well woman exam with routine gynecological exam- Primary Routine gynecological examination Morbid obesity ([facility] Morbid obesity Metabolic encephalopathy- Primary OSMANY (obstructive sleep apnea) Obstructive sleep apnea (adult) (pediatric) Morbid obesity ([facility]) Morbid obesity Bilateral lower extremity edema Tobacco dependence Tobacco use disorder Bipolar disorder with severe depression ([facility]) At risk for polypharmacy Anxiety Anxiety state, unspecified Primary hypertension Unspecified essential hypertension Right bundle branch block (RBBB) determined by electrocardiography Primary hypertension- Primary Unspecified essential hypertension Chronic kidney disease, stage 3a ([facility] Morbid (severe) obesity due to excess calories ([facility] Body mass index (BMI) 45.0-49.9, adult ([facility] OSMANY (obstructive sleep apnea) Obstructive sleep apnea (adult) (pediatric) Hemiparesis, right (HCC) Unspecified hemiplegia affecting unspecified side Gastroesophageal reflux disease, unspecified whether esophagitis present Metabolic encephalopathy Essential (primary) hypertension Unspecified essential hypertension Allergic rhinitis, unspecified Gastro-esophageal reflux disease without esophagitis Bilateral lower extremity edema Primary hypertension- Primary Unspecified essential hypertension Morbid (severe) obesity due to excess calories ([facility]) Essential (primary) hypertension Unspecified essential hypertension Allergic rhinitis, unspecified Gastro-esophageal reflux disease without esophagitis Bilateral lower extremity edema Bronchitis Bronchitis, not specified as acute or chronic Primary hypertension- Primary Unspecified essential hypertension Bronchitis Bronchitis, not specified as acute or chronic Bilateral lower extremity edema Morbid (severe) obesity due to excess calories ([facility]) Pre-diabetes Other abnormal glucose Allergic rhinitis, [...] Morbid (severe) obesity due to excess calories ([facility]) Primary hypertension Unspecified essential hypertension Anemia, unspecified type Bilateral lower extremity edema Osteoporosis, unspecified osteoporosis type, unspecified pathological fracture presence Chronic kidney disease, stage 3a ([facility]) Pre-diabetes Other abnormal glucose documented in this encounter [facility]* Diagnosis Encounter for annual wellness visit (AWV) in Medicare patient- Primary OSMANY (obstructive sleep apnea) Obstructive sleep apnea (adult) (pediatric) Chronic pain disorder Chronic pain syndrome Gastroesophageal reflux disease, unspecified whether esophagitis present Overactive bladder Hypertonicity of bladder Lower extremity edema Edema Pre-diabetes Other abnormal glucose Morbid obesity ([facility]) Morbid obesity Yeast infection of the [...] Candidiasis of skin and nails Morbid obesity ([facility]) Morbid obesity Primary hypertension- Primary Unspecified essential hypertension Allergic rhinitis, unspecified Acute cough Morbid obesity ([facility]) Morbid obesity Former cigarette smoker Personal history of tobacco use, presenting hazards to health Toxic metabolic encephalopathy- Primary Hemiparesis, right (HCC) Unspecified hemiplegia affecting unspecified side Acute respiratory failure with hypoxia (HCC) Heart murmur Undiagnosed cardiac murmurs Primary hypertension Unspecified essential hypertension Morbid obesity ([facility]) Morbid obesity Bipolar disorder with severe depression ([facility]) Slurred speech Other speech disturbance Bilateral lower extremity edema- Primary Primary hypertension Unspecified essential hypertension Lower extremity edema Edema Essential (primary) hypertension Unspecified essential hypertension Gastro-esophageal reflux disease without esophagitis Allergic rhinitis, unspecified Bilateral lower extremity edema- Primary Morbid (severe) obesity due to excess calories ([facility] Body mass index (BMI) 45.0-49.9, adult ([facility] Pre-diabetes Other abnormal glucose Bilateral lower extremity edema- Primary Essential (primary) hypertension Unspecified essential hypertension Allergic rhinitis, unspecified OSMANY (obstructive sleep apnea) Obstructive sleep apnea (adult) (pediatric) Primary hypertension Unspecified essential hypertension Morbid obesity ([facility] Morbid obesity Well woman exam with routine gynecological exam- Primary Routine gynecological examination Morbid obesity ([facility] Morbid obesity Metabolic encephalopathy- Primary OSMANY (obstructive sleep apnea) Obstructive sleep apnea (adult) (pediatric) Morbid obesity ([facility]) Morbid obesity Bilateral lower extremity edema Tobacco dependence Tobacco use disorder Bipolar disorder with severe depression ([facility]) At risk for polypharmacy Anxiety Anxiety state, unspecified Primary hypertension Unspecified essential hypertension Right bundle branch block (RBBB) determined by electrocardiography Primary hypertension- Primary Unspecified essential hypertension Chronic kidney disease, stage 3a ([facility]) Morbid (severe) obesity due to excess calories ([facility] Body mass index (BMI) 45.0-49.9, adult ([facility] OSMANY (obstructive sleep apnea) Obstructive sleep apnea (adult) (pediatric) Hemiparesis, right (HCC) Unspecified hemiplegia affecting unspecified side Gastroesophageal reflux disease, unspecified whether esophagitis present Metabolic encephalopathy Essential (primary) hypertension Unspecified essential hypertension Allergic rhinitis, unspecified Gastro-esophageal reflux disease without esophagitis Bilateral lower extremity edema Primary hypertension- Primary Unspecified essential hypertension Morbid (severe) obesity due to excess calories ([facility]) Essential (primary) hypertension Unspecified essential hypertension Allergic rhinitis, unspecified Gastro-esophageal reflux disease without esophagitis Bilateral lower extremity edema Bronchitis Bronchitis, not specified as acute or chronic Primary hypertension- Primary Unspecified essential hypertension Bronchitis Bronchitis, not specified as acute or chronic Bilateral lower extremity edema Morbid (severe) obesity due to excess calories ([facility] Pre-diabetes Other abnormal glucose Allergic rhinitis, unspecified [...] Morbid (severe) obesity due to excess calories ([facility]) Primary hypertension Unspecified essential hypertension Anemia, unspecified type Bilateral lower extremity edema Osteoporosis, unspecified osteoporosis type, unspecified pathological fracture presence Chronic kidney disease, stage 3a ([facility]) Pre-diabetes Other abnormal glucose Acute medial meniscus tear of right knee, initial encounter- Primary Chronic pain of right knee Morbid obesity ([facility]) Morbid obesity Primary osteoarthritis of right knee Preoperative testing Unspecified pre-operative examination documented in this encounter [facility] and physical note Author Jace Graham [facility] March 23, 2023 11:21am Note Date/Time March 23, 2023 11:21am [facility] [address] [place] [address] Gastroenterology H&P Signed Patient: Michelle Be MR#: [id number] : 1960 Acct:[id number] Age/Sex: 62 / F Adm Date: 3 Loc: Room: Type: [facility] Attending Dr: Jace Graham MD Copies [...] Jace Graham MD> 03/23/23 1121 [facility] Work Phone: History general Narrative - [...] see above surg Hospitalization History stroke 2018 [facility] Other Hospital Discharge instructions Additional Instructions Regular Diet No Activity [facility] Work Phone: Hospital Discharge instructions Additional [...] years. -Follow up with PCP. -Office number [phone].[facility] Work Phone: Reason for visit Narrative* Consultation (Routine) - Closed Specialty Diagnoses / Procedures Referred By Contac t Referred To Contact Neuropsychology Diagnoses Memory change Procedures LA OFFICE/OUTPATIENT [facility] Juany Leggett PA [address] [place] [address] Phone: tel: fax: David Foster, PhD [address] [address] Phone: tel: fax: Referral ID Status Reason Start Date Expiration Date V isits Requested Visits Authorized [id number] Closed Specialty Services Required 03/07/2024 09/03/2024 1 [...] Documents on File Type Date Recorded Patient Wet Process Miller Head Assistant Expl anation Power of Wood Heel Attacher 03/10/2024 3:12 PM POA Documents on File Type Date Recorded Patient Wet Process Miller Head Assistant Expl anation Power of Wood Heel Attacher 03/10/2024 3:12 PM POA Documents on File Type Date Recorded Patient Wet Process Miller Head Assistant Expl anation Power of Wood Heel Attacher 03/16/2024 9:42 AM darian r of civil attorney Power of Wood Heel Attacher 03/10/2024 3:12 PM POA Documents on File Type Date Recorded Patient Wet Process Miller Head Assistant Expl anation Power of Wood Heel Attacher 03/16/2024 9:42 AM darian r of civil attorney Power of Wood Heel Attacher 03/10/2024 3:12 PM POA Chief Complaint and Reason for Visit Chief Complaint Bipolar Depression Reason for Visit Allergies Bipolar 2 disorder Hypertension Morbid obesity with BMI of 45.0-49.9, adult OSMANY (obstructive sleep apnea) Restless legs syndrome Chief Complaint Screening Additional Source Comments INFORMATION SOURCE (unrecogn ized section and content) DATE CREATED AUTHOR 02/18/2019 [facility] DATE CREATED AUTHOR AUTHOR'S ORGANIZ ATION 11/15/2021 [facility] DATE CREATED AUTHOR AUTHOR'S ORGANIZ ATION 08/16/2022 [facility] DATE CREATED AUTHOR AUTHOR'S ORGANIZ ATION 10/09/2024 [facility] DATE CREATED AUTHOR AUTHOR'S ORGANIZ ATION 10/23/2024 [facility] DATE CREATED AUTHOR AUTHOR'S ORGANIZ ATION 11/11/2024 [facility] DATE CREATED AUTHOR AUTHOR'S ORGANIZ ATION 11/21/2024 [facility] [employer] Care Teams (unrecognized sec tion and content) Team Status: Active Member Role Status Dates Adelaida Carrion Primary Care Provider Active Team Status: Inactive Member Role Status Dates Adelaida Carrion Primary Care Provider Active Gaudencio Mokn MD Admit Provider, Attending Pr ovider Active Andreina Vieira RN Other Provider Active Camilla Pina , RN Other Provider Active Ruchi Hurtado , RN Other Provider Active Lisa Crooks , RN Other Provider Active Tash Mejias , RN Other Provider Active Elzbieta Kim , JOHANN Other Provider Active Walker Pringle MD Other Provider Active Adelaida Marsh , STEAM PLANT CONTROL ROOM OPERATOR Other Provider Active Jessica Murillo , [...] MD Other Provider Active Joellen Le , DRYWALL INSTALLER-C Other Provider Active Severo Yancey MD Other Provider Active Rao Webber MD Other Provider Active Yuan Shi MD Other Provider Active Delroy Ramirez MD Other Provider Active Berta Comer , DO Other Provider Active Negrito uRiz , DO Other Provider Active Lacho Singh , DO Other Provider Active Rachana Hobson , STEAM PLANT CONTROL ROOM OPERATOR Other Provider Active Rob Lake , DO Other Provider Active Jeff Alvarez MD Other Provider Active Urmila Rinaldi STEAM PLANT CONTROL ROOM OPERATOR Other Provider Active Bina Mayberry , STEAM PLANT CONTROL ROOM OPERATOR Other Provider Active Mir Bradford MD Other Provider Active Te Da Silva MD Other Provider Active Debra Landaverde , JOHANN Other Provider Active Team Status: Inactive Member Role Status Dates Adelaida Carrion Primary Care Provider Active Jace Graham MD Attending Provider Active Drug Safety Coordinator Relationship Specialty Start Date End Date José Luis Roberts MD [address] [place] [address] PCP - General Family Medicine 05/18/23 Adelaida Carrion NP [address] [place] [address] Referring Physician Nurse Practitioner 10/14/22 Drug Safety Coordinator Relationship Specialty Start Date End Date José Luis Roberts MD [address] [place] [phone] PCP - General Family Medicine 05/18/23 Adelaida Carrion NP [address] [place] [phone] Referring Physician Nurse Practitioner 10/14/22 Drug Safety Coordinator Relationship Specialty Start Date End Date José Luis Roberts MD [address] [place] [phone] PCP - General Family Medicine 05/18/23 Adelaida Carrion NP [address] [place] [phone] Referring Physician Nurse Practitioner 10/14/22 Drug Safety Coordinator Relationship Specialty Start Date End Date José Luis Roberts MD [address] [place] [phone] PCP - General Family Medicine 05/18/23 Adelaida Carrion NP Referring Physician Nurse Practitioner 10/14/22 Miriam Suarez DO [address] [place] [address] Referring Physician Neurology 06/29/23 [place] De Leon LPN Licensed Practical Nurse Family Medicine 12/18/23 Drug Safety Coordinator Relationship Specialty Start Date End Date José Luis Roberts MD [address] [place] [address] PCP - General Family Medicine 05/18/23 Adelaida Carrion, BRIANA Referring Physician Nurse Practitioner 10/14/22 Miriam Suarez DO [address] [place] [address] Referring Physician Neurology 06/29/23 [place] LPN Licensed Practical Nurse Family Medicine 12/18/23 Drug Safety Coordinator Relationship Specialty Start Date End Date Unallocated, Geeta Sierra MD [address] [place] [address] PCP - General Family Medicine 01/27/24 Miriam Suarez DO [address] [place] [address] Referring Physician Neurology 06/29/23 [place] LPN Licensed Practical Nurse Family Medicine 12/18/23 Adelaida Carrion, BRIANA [address] [place] [place] [address] Nurse Practitioner Family Medicine 01/27/24 Drug Safety Coordinator Relationship Specialty Start Date End Date Unallocated, Geeta Sierra MD [address] [facility] [place] [address] PCP - General Family Medicine 01/27/24 Miriam Suarez DO [address] [place] [address] Referring Physician Neurology 06/29/23 [place] De [place] LPN Licensed Practical Nurse Family Medicine 12/18/23 Adelaida Carrion NP [address] [place] [address] Nurse Practitioner Family Medicine 01/27/24 Drug Safety Coordinator Relationship Specialty Start Date End Date José Luis Roberts MD [address] [place] [phone] PCP - General Family Medicine 02/02/24 Miriam Suarez DO [address] [place], [place] [phone] Referring Physician Neurology 06/29/23 [place] De [place] LPN Licensed Practical Nurse Family Medicine 12/18/23 Adelaida Carrion NP [address] [place] [address] Nurse Practitioner Family Medicine 01/27/24 Drug Safety Coordinator Relationship Specialty Start Date End Date José Luis Roberts MD [address] [place] [phone] PCP - General Family Medicine 02/02/24 Miriam Suarez DO [address] [place] [address] Referring Physician Neurology 06/29/23 Adelaida Carrion NP [address] [place] [address] Nurse Practitioner Family Medicine 01/27/24 Bong Rosado MA Family Medicine 02/12/24 Drug Safety Coordinator Relationship Specialty Start Date End Date José Luis Roberts MD [address] [place] [address] PCP - General Family Medicine 02/02/24 Miriam Suarez DO [address] [place] [address] Referring Physician Neurology 06/29/23 Adelaida Carrion, BRIANA [address] [place] [address] Nurse Practitioner Family Medicine 01/27/24 Bong Rosado MA Family Medicine 02/12/24 Drug Safety Coordinator Relationship Specialty Start Date End Date José Luis Roberts MD [address] [place] [phone] PCP - General Family Medicine 02/02/24 Miriam Suarez DO [address] [place] [address] Referring Physician Neurology 06/29/23 Adelaida Carrion, BRIANA [address] [place] [address] Nurse Practitioner Family Medicine 01/27/24 Bong Rosado MA Family Medicine 02/12/24 Drug Safety Coordinator Relationship Specialty Start Date End Date José Luis Roberts MD [address] [place] [address] PCP - General Family Medicine 02/02/24 Miriam Suarez DO [address] [place], [place] [address] Referring Physician Neurology 06/29/23 Adelaida Carrion NP [address] [place] [phone] Nurse Practitioner Family Medicine 01/27/24 Bong Rosado MA Family Medicine 02/12/24 Drug Safety Coordinator Relationship Specialty Start Date End Date José Luis Roberts MD [address] [place] [phone] PCP - General Family Medicine 02/02/24 Miriam Suarez DO [address] [place], [place] [phone] Referring Physician Neurology 06/29/23 Adelaida Carrion NP [address] [place] [phone] Nurse Practitioner Family Medicine 01/27/24 Bong Rosado MA Family Medicine 02/12/24 Drug Safety Coordinator Relationship Specialty Start Date End Date José Luis Roberts MD [address] [place] [phone] PCP - General Family Medicine 02/02/24 Miriam Suarez DO [address] [place], [place] [phone] Referring Physician Neurology 06/29/23 Adelaida Carrion NP [address] [place] [phone] Nurse Practitioner Family Medicine 01/27/24 Bong Rosado MA Family Medicine 02/12/24 Drug Safety Coordinator Relationship Specialty Start Date End Date José Luis Roberts MD [address] [place] [address] PCP - General Family Medicine 02/02/24 Miriam Suarez DO [address] [place] [address] Referring Physician Neurology 06/29/23 Adelaida Carrion, BRIANA [address] [place] [address] Nurse Practitioner Family Medicine 01/27/24 Bong Rosado MA Family Medicine 02/12/24 Drug Safety Coordinator Relationship Specialty Start Date End Date José Luis Roberts MD [address] [place] [phone] PCP - General Family Medicine 02/02/24 Miriam Suarez DO [address] [place] [address] Referring Physician Neurology 06/29/23 Adelaida Carrion, BRIANA [address] [place] [address] Nurse Practitioner Family Medicine 01/27/24 Bong Rosado MA Family Medicine 02/12/24 Drug Safety Coordinator Relationship Specialty Start Date End Date José Luis Roberts MD [address] [place] [address] PCP - General Family Medicine 02/02/24 Miriam Suarez DO [address] [place], [place] [address] Referring Physician Neurology 06/29/23 Adelaida Carrion NP [address] [place] [address] Nurse Practitioner Family Medicine 01/27/24 Bong Rosado MA Family Medicine 02/12/24 Drug Safety Coordinator Relationship Specialty Start Date End Date José Luis Roberts MD [address] [place] [address] PCP - General Family Medicine 02/02/24 Miriam Suarez DO [address] [place], [place] [phone] Referring Physician Neurology 06/29/23 Adelaida Carrion NP [address] [place] [address] Nurse Practitioner Family Medicine 01/27/24 Bong Rosado MA Family Medicine 02/12/24 Drug Safety Coordinator Relationship Specialty Start Date End Date José Luis Roberts MD [address] [place] [address] PCP - General Family Medicine 02/02/24 Miriam Suarez DO [address] [place], [place] [phone] Referring Physician Neurology 06/29/23 Adelaida Carrion NP [address] [place] [address] Nurse Practitioner Family Medicine 01/27/24 Bong Rosado MA Family Medicine 02/12/24 Drug Safety Coordinator Relationship Specialty Start Date End Date José Luis Roberts MD [address] [place] [address] PCP - General Family Medicine 05/18/23 Adelaida Carrion NP Referring Physician Nurse Practitioner 10/14/22 Miriam Suarez DO [address] [place] [address] Referring Physician Neurology 06/29/23 Mathew Parra LPN Licensed Practical Nurse Family Medicine 07/23/23 Drug Safety Coordinator Relationship Specialty Start Date End Date José Luis Roberts MD [address] [place] [phone] PCP - General Family Medicine 05/18/23 Adelaida Carrion NP Referring Physician Nurse Practitioner 10/14/22 Miriam Suarez DO [address] [place], [place] [address] Referring Physician Neurology 06/29/23 Mathew Parra LPN Licensed Practical Nurse Family Medicine 07/23/23 Drug Safety Coordinator Relationship Specialty Start Date End Date José Luis Roberts MD [address] [place] [address] PCP - General Family Medicine 05/18/23 Adelaida Carrion NP Referring Physician Nurse Practitioner 10/14/22 Miriam Suarez DO [address] [place] [address] Referring Physician Neurology 06/29/23 Mathew Parra LPN Licensed Practical Nurse Family Medicine 07/23/23 Drug Safety Coordinator Relationship Specialty Start Date End Date José Luis Roberts MD [address] [place] [address] PCP - General Family Medicine 05/18/23 Adelaida Carrion NP Referring Physician Nurse Practitioner 10/14/22 Miriam Suarez DO [address] [place] [address] Referring Physician Neurology 06/29/23 Mathew Parra LPN Licensed Practical Nurse Family Medicine 07/23/23 Drug Safety Coordinator Relationship Specialty Start Date End Date José Luis Roberts MD [address] [place] [phone] PCP - General Family Medicine 05/18/23 Adelaida Carrion NP Referring Physician Nurse Practitioner 10/14/22 Miriam Suarez DO [address] [place] [address] Referring Physician Neurology 06/29/23 [place] De Leon LPN Licensed Practical Nurse Family Medicine 12/18/23 Drug Safety Coordinator Relationship Specialty Start Date End Date José Luis Roberts MD [address] [place] [address] PCP - General Family Medicine 05/18/23 Adelaida Carrion NP Referring Physician Nurse Practitioner 10/14/22 Miriam Suarez DO [address] [place] [address] Referring Physician Neurology 06/29/23 [place] De [place] LPN Licensed Practical Nurse Family Medicine 12/18/23 Drug Safety Coordinator Relationship Specialty Start Date End Date José Luis Roberts MD [address] [place] [address] PCP - General Family Medicine 05/18/23 Adelaida Carrion NP Referring Physician Nurse Practitioner 10/14/22 Miriam Suarez DO [address] [place] [address] Referring Physician Neurology 06/29/23 [place] LPN Licensed Practical Nurse Family Medicine 12/18/23 Drug Safety Coordinator Relationship Specialty Start Date End Date José Luis Roberts MD [address] [place] [address] PCP - General Family Medicine 02/02/24 Miriam Suarez DO [address] [place] [address] Referring Physician Neurology 06/29/23 Adelaida Carrion NP [address] [place] [address] Nurse Practitioner Family Medicine 01/27/24 Bong Rosado MA Family Medicine 02/12/24 Drug Safety Coordinator Relationship Specialty Start Date End Date José Luis Roberts MD [address] [place] [address] PCP - General Family Medicine 02/02/24 Miriam Suarez DO [address] [place] [address] Referring Physician Neurology 06/29/23 Adelaida Carrion, BRIANA [address] [place] [address] Nurse Practitioner Family Medicine 01/27/24 Bong Rosado MA Family Medicine 02/12/24 Drug Safety Coordinator Relationship Specialty Start Date End Date José Luis Roberts MD [address] [place] [address] PCP - General Family Medicine 02/02/24 Miriam Suarez DO [address] [place], [place] [phone] Referring Physician Neurology 06/29/23 Adelaida Carrion, BRIANA [address] [place] [address] Nurse Practitioner Family Medicine 01/27/24 Bong Rosado MA Family Medicine 02/12/24 Drug Safety Coordinator Relationship Specialty Start Date End Date José Luis Roberts MD [address] [place] [address] PCP - General Family Medicine 02/02/24 Miriam Suarez DO [address] [place] [address] Referring Physician Neurology 06/29/23 Adelaida Carrion NP [address] [place] [address] Nurse Practitioner Family Medicine 01/27/24 Bong Rosado MA Family Medicine 02/12/24 Drug Safety Coordinator Relationship Specialty Start Date End Date José Luis Roberts MD [address] [place] [address] PCP - General Family Medicine 02/02/24 Miriam Suarez DO [address] [place], [place] [address] Referring Physician Neurology 06/29/23 Adelaida Carrion NP [address] [place] [address] Nurse Practitioner Family Medicine 01/27/24 Bong Rosado MA Family Medicine 02/12/24 Drug Safety Coordinator Relationship Specialty Start Date End Date José Luis Roberts MD [address] [place] [address] PCP - General Family Medicine 02/02/24 Miriam Suarez DO [address] [place], [place] [address] Referring Physician Neurology 06/29/23 Adelaida Carrion NP [address] [place] [address] Nurse Practitioner Family Medicine 01/27/24 Bong Rosado MA Family Medicine 02/12/24 Drug Safety Coordinator Relationship Specialty Start Date End Date José Luis Roberts MD [address] [place] [address] PCP - General Family Medicine 02/02/24 Miriam Suarez DO [address] [place] [address] Referring Physician Neurology 06/29/23 Adelaida Carrion NP [address] [place] [address] Nurse Practitioner Family Medicine 01/27/24 Bong Rsoado MA Family Medicine 02/12/24 Juany Leggett PA [address] [place], [place] [phone] Physician Utilization Management Um Nurse Neurology 07/26/24 Drug Safety Coordinator Relationship Specialty Start Date End Date José Luis Roberts MD [address] [place] [address] PCP - General Family Medicine 02/02/24 Miriam Suarez DO [address] [place], [place] [address] Referring Physician Neurology 06/29/23 Adelaida Carrion NP [address] [place] [address] Nurse Practitioner Family Medicine 01/27/24 Bong Rosado MA Family Medicine 02/12/24 Juany Leggett PA [address] [place], [place] [address] Physician Utilization Management Um Nurse Neurology 07/26/24 Drug Safety Coordinator Relationship Specialty Start Date End Date José Luis Roberts MD [address] [place] [address] PCP - General Family Medicine 02/02/24 Miriam Suarez DO [address] [place] [address] Referring Physician Neurology 06/29/23 Adelaida Carrion, BRIANA [address] [place] [address] Nurse Practitioner Family Medicine 01/27/24 Bong Rosado MA Family Medicine 02/12/24 Juany Leggett PA [address] [facility] [place] [address] Physician Utilization Management Um Nurse Neurology 07/26/24 Drug Safety Coordinator Relationship Specialty Start Date End Date José Luis Roberts MD [address] [place] [phone] PCP - General Family Medicine 02/02/24 Miriam Suarez DO [address] [place] [address] Referring Physician Neurology 06/29/23 Adelaida Carrion NP [address] [place] [address] Nurse Practitioner Family Medicine 01/27/24 Bong Rosado MA Family Medicine 02/12/24 Juany Leggett PA [address] [place] [address] Physician Utilization Management Um Nurse Neurology 07/26/24 Drug Safety Coordinator Relationship Specialty Start Date End Date José Luis Roberts MD [address] [place] [phone] PCP - General Family Medicine 02/02/24 Miriam Suarez DO [address] [place] [address] Referring Physician Neurology 06/29/23 Adelaida Carrion, BRIANA [address] [place] [address] Nurse Practitioner Family Medicine 01/27/24 Bong Rosado MA Family Medicine 02/12/24 Juany Leggett PA [address] [place] [address] Physician Utilization Management Um Nurse Neurology 07/26/24 Drug Safety Coordinator Relationship Specialty Start Date End Date José Luis Roberts MD [address] [place] [address] PCP - General Family Medicine 02/02/24 Miriam Suarez DO [address] [place] [address] Referring Physician Neurology 06/29/23 Adelaida Carrion NP [address] [place] [address] Nurse Practitioner Family Medicine 01/27/24 Bong Rosado MA Family Medicine 02/12/24 Juany Leggett PA [address] [place], [place] [address] Physician Utilization Management Um Nurse Neurology 07/26/24 Drug Safety Coordinator Relationship Specialty Start Date End Date José Luis Roberts MD [address] [place] [address]133[address] PCP - General Family Medicine 02/02/24 Miriam Suarez DO [address] [place] [address] Referring Physician Neurology 06/29/23 Adelaida Carrion NP [address] [place] [address] Nurse Practitioner Family Medicine 01/27/24 Bong Rosado, [place] [address] [place] [address] Family Medicine 02/12/24 Juany Leggett PA [address] [place], [place] [address] Physician Utilization Management Um Nurse Neurology 07/26/24 Drug Safety Coordinator Relationship Specialty Start Date End Date José Luis Roberts MD [address] [place] [address]33[address] PCP - General Family Medicine 02/02/24 Miriam Suarez DO [address] [place], [place] [address] Referring Physician Neurology 06/29/23 Adelaida Carrion NP [address] [place] [address] Nurse Practitioner Family Medicine 01/27/24 Bong Rosado MA [address] [place] [address] Family Medicine 02/12/24 Juany Leggett PA [address] [place] [address] Physician Utilization Management Um Nurse Neurology 07/26/24 Drug Safety Coordinator Relationship Specialty Start Date End Date José Luis Roberts MD [address] [place] [address] PCP - General Family Medicine 02/02/24 Miriam Suarez DO [address] [place] [address] Referring Physician Neurology 06/29/23 Adealida Carrion NP [address] [place] [address] Nurse Practitioner Family Medicine 01/27/24 Bong Rosado MA [address] [place] [address] Family Medicine 02/12/24 Juany Leggett PA [address] [place] [address] Physician Utilization Management Um Nurse Neurology 07/26/24 Drug Safety Coordinator Relationship Specialty Start Date End Date José Luis Roberts MD [address] [place] [address] PCP - General Family Medicine 02/02/24 Miriam Suarez DO [address] [place] [address] Referring Physician Neurology 06/29/23 Adelaida Carrion NP [address] [place] [address] Nurse Practitioner Family Medicine 01/27/24 Bong Rosado MA [address] [place] [address] Family Medicine 02/12/24 Juany Leggett PA [address] [place], [place] [address] Physician Utilization Management Um Nurse Neurology 07/26/24 Drug Safety Coordinator Relationship Specialty Start Date End Date José Luis Roberts MD [address] [place] [address] PCP - General Family Medicine 02/02/24 Miriam Suarez DO [address] [place] [address] Referring Physician Neurology 06/29/23 Adelaida Carrion NP [address] [place] [address] Nurse Practitioner Family Medicine 01/27/24 Bong Rosado MA [address] [place] [address] Family Medicine 02/12/24 Juany Leggett PA [address] [place], [place] [address] Physician Utilization Management Um Nurse Neurology 07/26/24 Drug Safety Coordinator Relationship Specialty Start Date End Date José Luis Roberts MD [address] [place] [phone] PCP - General Family Medicine 02/02/24 Miriam Suarez DO [address] [place] [address] Referring Physician Neurology 06/29/23 Adelaida Carrion NP [address] [place] [phone] Nurse Practitioner Family Medicine 01/27/24 Bong Rosado MA [address] [place] [address] Family Medicine 02/12/24 Juany Leggett PA [address] [place] [address] Physician Utilization Management Um Nurse Neurology 07/26/24 Drug Safety Coordinator Relationship Specialty Start Date End Date José Luis Roberts MD [address] [place] [address] PCP - General Family Medicine 02/02/24 Miriam Suarez DO [address] [place] [address] Referring Physician Neurology 06/29/23 Adelaida Carrion NP [address] [place] [address] Nurse Practitioner Family Medicine 01/27/24 Bong Rosado MA [address] [place] [address] Family Medicine 02/12/24 Juany Leggett PA [address] [place] [address] Physician Utilization Management Um Nurse Neurology 07/26/24 Drug Safety Coordinator Relationship Specialty Start Date End Date José Luis Roberts MD [address] [place] [address] PCP - General Family Medicine 02/02/24 Miriam Suarez DO [address] [place] [address] Referring Physician Neurology 06/29/23 Adelaida Carrion NP [address] [place] [address] Nurse Practitioner Family Medicine 01/27/24 Bong Rosado, [place] [address] [place] [address] Family Medicine 02/12/24 Juany Leggett PA [address] [place] [address] Physician Utilization Management Um Nurse Neurology 07/26/24 Drug Safety Coordinator Relationship Specialty Start Date End Date José Luis Roberts MD [address] [place] [address] PCP - General Family Medicine 02/02/24 Miriam Suarez DO [address] [place] [address] Referring Physician Neurology 06/29/23 Adelaida Carrion NP [address] [place] [address] Nurse Practitioner Family Medicine 01/27/24 Bong Rosado, [place] [address] [place] [address] Family Medicine 02/12/24 Juany Leggett PA [address] [place] [address] Physician Utilization Management Um Nurse Neurology 07/26/24 REASON FOR VISIT (unrecogniz ed section and content) Reason Comments Med Refill Reason Comments Restless Legs Encephalopathy Reason Comments Hospital Follow-up Reason Comments Anxiety Reason Comments Sleep Apnea Reason Onset Date Comments Med Refill 04/12/2024 Reason Comments Encephalopathy Reason Comments Altered Mental Status Reason Comments Hospital Follow-up Reason Comments Diabetes Reason Comments Pain Reason Comments Gynecologic Exam Reason Comments Follow-up FOR RECORDS PERTAINING TO PATIENTS WHO [...] BE BASED ON THE PRIMARY CLINICAL RECORDS. [facility]. provides no warranty or guarantee of the accuracy or completeness of information in this document.
[2024-11-23 09:05] LABS: Hematocrit 37.9 % (36.0-48.0); Hemoglobin 12.3 g/dL (12.0-16.0); Immature Granulocytes Abs Auto 0.03 10^3/uL (0.00-0.03); Immature Granulocytes Pct Auto 0.4 % (0.0-0.5); Lymphocytes Absolute Auto 1.7 10^3/uL (1.2-3.8); Mean Corpuscular HGB Conc 32.5 g/dL (29.9-35.2); Mean Corpuscular Hemoglobin 28.4 pg (26.7-34.0); Mean Corpuscular Volume 87.5 fL (81.0-99.0); Platelet Count 192 10^3/uL (150-450); Red Blood Count 4.33 10^6/uL (4.20-5.40); White Blood Count 8.3 10^3/uL (4.0-11.0)
[2024-11-23 09:23] LABS: Glucose Urine UA NEGATIVE (NEGATIVE)
[2024-11-23 09:48] LABS: Alanine Aminotransferase 26 U/L (14-59); Albumin Globulin Ratio 1.0; Albumin Level 3.8 g/dL (3.4-5.0); Alkaline Phosphatase 91 U/L (46-116); Anion Gap 11.0; Aspartate Amino Transferase 30 U/L (15-37); Blood Urea Nitrogen 16.0 mg/dL (7.0-18.0); Calcium 9.2 mg/dL (8.5-10.1); Carbon Dioxide 28.7 mmol/L (21.0-32.0); Chloride 105 mmol/L (98-107); Cholesterol 154 mg/dL (<=200); Estimated GFR (African America 59 (>=60 mL/min/1.73m^2); Estimated GFR (Non-African Ame 49 (>=60 mL/min/1.73m^2); Globulin 3.8 g/dL; Glucose 98 mg/dL (74-106); HDL Cholesterol 34 mg/dL (40-60); Potassium 4.7 mmol/L (3.5-5.1); Sodium 140 mmol/L (136-145); Total Protein 7.6 g/dL (6.4-8.2); Triglycerides 189 mg/dL (<=150); VLDL CHOLESTEROL 37.8 mg/dL
== END 2024-11-23 08:23 | disposition home or self-care (01) ==
LOC: LAB 08:24
PROVIDERS: PCP Nurse Practitioner; Visit Provider Nurse Practitioner
DX: D64.9 Anemia, unspecified (principal); R60.0 Localized edema; M81.0 Age-related osteoporosis without current pathological fracture; N18.31 Chronic kidney disease, stage 3a; R73.03 Prediabetes; I12.9 Hypertensive chronic kidney disease with stage 1 through stage 4 chronic kidney disease, or unspecified chronic kidney disease
CPT/HCPCS: 36415; 80053; 80061; 81003; 82043; 82306; 82570; 85025

== ENCOUNTER 2024-11-23 08:27 | Outpatient (OUT) | payer MEDICARE, SELFPAY ==
--- OUTSIDE RECORDS SUMMARY | 2024-11-23 08:35 | XMS_ITS | CCD ---
Author Organization [facility] Care Team Providers Care Print Binding And Finishing Worker Name Role Phone EBRAHEIM, SUKI Admitting Unavailable EBRAHEIM, SUKI Attending Unavailable AICHHOLZ, ADELAIDA Referring Unavailable AICHHOLZ, ADELAIDA Primary Care Unavailable NC Procedure Practitioner Unavailab SUKI Jacob Surgeon Unavailable NC Procedure Practitioner Unavailab CHAPARRITA Goncalves Surgeon Unavailable BRIDGETTE MACEDO Admitting Unavailable BRIDGETTE MACEDO Attending Unavailable AICHHOLZ, BEER COOLER ADELAIDA Primary Care Unavailable NIXON ., DR FINA Iverson Admitting Unavailable NIXON ., DR FINA Iverson Attending Unavailable AICHHOLZ, BEER COOLER ADELAIDA Primary Care Unavailable MCDANIEL ., ZELDA Consulting Unavailable LAKSHMIPATHY ., NARENDRANATH Consulting Paula vailable LAKSHMIPATHY ., NARENDRANATH Admitting Paula vailable LAKSHMIPATHY ., NARENDRANATH Attending Paula vailable AICHHOLZ, BEER COOLER ADELAIDA Primary Care Unavailable LAKSHMIPATHY ., NARENDRANATH Consulting Paula vailable AICHHOLZ, BEER COOLER ADELAIDA Primary Care Unavailable MARKER ., DR CHAUDHRY Admitting Unavailable MARKER ., DR CHAUDHRY Attending Unavailable MARKER ., DR CHAUDHRY Consulting Unavailable AICHHOLZ, BEER COOLER ADELAIDA Admitting Unavailable AICHHOLZ, BEER COOLER ADELAIDA Attending Unavailable AICHHOLZ, BEER COOLER ADELAIDA Primary Care Unavailable NXION ., DR FINA Iverson Admitting Unavailable NIXON ., DR FINA Iverson Attending Unavailable AICHHOLZ, BEER COOLER ADELAIDA Primary Care Unavailable MCDANIEL ., ZELDA Consulting Unavailable NIXON ., DR FINA Iverson Admitting Unavailable NIXON ., DR FINA Iverson Attending Unavailable AICHHOLZ, BEER COOLER ADELAIDA Primary Care Unavailable MCDANIEL ., ZELDA Consulting Unavailable AICHHOLZ, BEER COOLER ADELAIDA Admitting Unavailable AICHHOLZ, BEER COOLER ADELAIDA Attending Unavailable AICHHOLZ, BEER COOLER ADELAIDA Primary Care Unavailable AICHHOLZ, BEER COOLER ADELAIDA Consulting Unavailable AICHOLZ, BEER COOLER ADELAIDA Admitting Unavailable AICHHOLZ, BEER COOLER ADELAIDA Attending Unavailable AICHOLZ, [facility] ADELAIDA Primary Care Unavailable AICHHOLZ, BEER COOLER ADELAIDA Consulting Unavailable MISC, DR COTE Admitting Unavailable MISC, DR COTE Attending Unavailable AICHOLZ, [facility] ADELAIDA Primary Care Unavailable AICHHOLZ, BEER COOLER ADELAIDA Consulting Unavailable ELYSSA, DR COTE Consulting Unavailable STARR, DR KINGSLEY Atkins Consulting Unavailable NIXON ., DR FINA Iverson Admitting Unavailable NIXON ., DR FINA Iverson Attending Unavailable AICHOLZ, [facility] ADELAIDA Primary Care Unavailable MCDANIEL ., ZELDA Consulting Unavailable NIXON ., DR FINA Iverson Admitting Unavailable NIXON ., DR FINA Iverson Attending [facility]available [facility] Primary Care Unavailable NIXON ., DR FINA Iverson Consulting Unavailable OMID LAY Consulting Unavailable NIXON ., DR FINA Iverson Admitting Unavailable NIXON ., DR FINA Iverson Attending Unavailable [facility], [facility] Primary Care Unavailable MCDANIEL ., ZELDA Consulting Unavailable [facility], [facility] Primary Care Unavailable HALKER ., ARIAN Admitting Unavailable HALKER ., ARIAN Attending Unavailable LAKSHMIPATHY ., NARENDRANATH Consulting Paula vailable HALKER ., ARIAN Consulting Unavailable LAKSHMIPATHY ., NARENDRANATH Admitting Paula vailable LAKSHMIPATHY ., NARENDRANATH Attending Paula vailable [facility], [facility] Primary Care Unavailable LAKSHMIPATHY ., NARENDRANATH Consulting Paula vailable AICHOLZ, BEER COOLER ADELAIDA Admitting Unavailable AICHOLZ, BEER COOLER ADELAIDA Attending Unavailable AICHOLZ, BEER COOLER ADELAIDA Primary Care Unavailable AICHHOLZ, BEER COOLER ADELAIDA Consulting Unavailable BRIDGETTE MACEDO Admitting Unavailable BRIDGETTE MACEDO Attending Unavailable AICHOLZ, BEER COOLER ADELAIDA Primary Care Unavailable STARR, DR KINGSLEY Atkins Consulting Unavailable BRIDGETTE MACEDO Consulting Unavailable GILMER NEVES Admitting Unavailable GILMER NEVES Attending Unavailable PURA, GILMER Consulting Unavailable AICHOLZ, BEER COOLER ADELAIDA Primary Care Unavailable AICHOLZ, BEER COOLER ADELAIDA Primary Care Unavailable DR WILLI RINALDI Admitting Unavailable DEEJAY, DR WILLI Atkins Attending Unavailable DR WILLI RINALDI Consulting Unavailable AICHOLZ, BEER COOLER ADELAIDA Primary Care Unavailable ALMAZ ., DANNY Admitting Unavailable ALMAZ ., DANNY Attending Unavailable DR KINGSLEY CLEMENTS Consulting Unavailable ALMAZ ., DANNY Consulting Unavailable LAKSHMIPATHY ., NARENDRANATH Admitting Paula vailable LAKSHMIPATHY ., NARENDRANATH Attending Paula vailable AICHHOLZ, BEER COOLER ADELAIDA Primary Care Unavailable AICHHOLZ, BEER COOLER ADELAIDA Admitting Unavailable AICHHOLZ, BEER COOLER ADELAIDA Attending Unavailable AICHHOLZ, BEER COOLER ADELAIDA Primary Care Unavailable AICHHOLZ, BEER COOLER ADELAIDA Admitting Unavailable AICHHOLZ, BEER COOLER ADELAIDA Attending Unavailable AICHHOLZ, BEER COOLER ADELAIDA Primary Care Unavailable AICHHOLZ, BEER COOLER ADELAIDA Consulting Unavailable ZIEBER, DR KINGSLEY Atkins Consulting Unavailable HALKER ., ARIAN Admitting Unavailable HALKER ., ARIAN Attending Unavailable AICHHOLZ, BEER COOLER ADELAIDA Primary Care Unavailable Aichholz, Adelaida J Primary Care Provider MD Gaudencio Monk Admit Provider MD Gaudencio Monk Attending Provider JOHANN Vieira Other Provider Unavailable JOHANN Pina Other Provider Unavailable JOHANN Hurtado Other Provider Unavailable JOHANN Crooks Other Provider Unavailable JOHANN Mejias Other Provider Unavailable JOHANN Kim Other Provider Unavailable MD Walker Pringle Other Provider Dilans, ACID TANK LINER Adelaida Huddleston Other Provider [phone] DO Jessica Murillo Other Provider MD [...] Care Provider MD Jace Graham Attending Provider [phone] Sheyla HOT WORKER, Adelaida Unavailable José Luis Roberts MD Primary Care Provider Sheyla HOT WORKER, Adelaida Unavailable Daniela GRAHAM, Miriam Unavailable Moises CAMPBELL, Diana Unavailable Unavailable Unallocated , [place] Provider Primary Care Yadirai kellee Sheyla HOT WORKER, Adelaida Unavailable José Luis Roberts MD Primary [...] Foster Consulting Unavailable Daniela Miriam Consulting Unavailable MaconKingsley downing Consulting Unavailable Kar Burt Consulting Unavailab Dennis Hicks Consulting Unavailable uJany Caballero Consulting Unavailable Inna Melendez Consulting Unavailable [...] (disorder) 04-06-19 14 rash [facility] Repository (3 sources) levETIRAcetam; Translations: [KEPPRA] Drug Allergy 07-02-19 19 [facility] Repository (3 sources) milnacipran; Translations: [SAVELLA] Drug Allergy 03-14-20 13 [facility] Repository (1 source) Penicillin; Translations: [PENICILLIN] Drug Allergy 01-16-20 18 [facility] Repository (5 sources) Prochlorperazin e; Translations: [COMPAZINE] Drug Allergy 03-14-20 13 agitation [facility] Repository (20 sources) Tetracycline; Translations: [TETRACYCLINE] Drug Allergy 04-06-19 13 Hives, Unknown [facility] Repository (4 sources) Penicillins Drug allergy (disorder) 04-06-19 13 Unknown Reaction [facility] Repository (20 sources) levETIRAcetam; Translations: [levetiracetam] Drug Allergy 12-13-19 22 Hallucinations , Other [facility] (20 sources) milnacipran; Translations: [milnacipran] Drug Allergy 12-13-19 22 hives, Hallucinations , Other, Unknown [facility] (20 sources) Prochlorperazin e; Translations: [prochlorperazi ne] Drug Allergy 12-13-19 22 Unknown, Other [facility] (2 sources) Penicillin G Drug Allergy as a child [facility] Other (2 sources) Tetracaine Drug Allergy Unknown [facility] Other (20 sources) Penicillins Drug Intolerance 12-13-[address] [facility] (20 sources) Other Propensity to adverse reactions 12-13-[address] [facility] (20 sources) Wound Dressing Adhesive Drug Allergy 09-20-19 23 Rash, Unknown [facility] (20 sources) Eszopiclone Drug Allergy 09-21-19 24 Hallucinations , Anaphylaxis [facility] (1 source) Penicillin Drug Allergy 03-02-20 [facility]ository (1 source) Penicillins Drug allergy (disorder) 03-02-20 [facility] Repository (1 source) Tetracaine Drug Allergy 03-02-20 [facility] Repository Medications Current Medications Medication [...] sources) Magnesium 400 MG capsule Pt taking OTC(Fliptop) Active Magnesium 400 MG capsule magnesium 0 [...] e Melatonin 12 MG tablet Indications: from [employer] Take 1 tablet by mouth at bedtime [...] s-Minerals (BARIATRIC MULTIVITAMINS/IRON PO) Pt taking OTC ([employer]) Active Multiple Vitamin s-Minerals (BARIATRIC MULTIVITAMINS/IRON PO) Bariatric Multivitamins/Iron 0 Active Danuucnoeyri-Flw-Qmxc-Fa-Vit K (Bariatric Multivitamins) 45 mg iron- 800 mcg-120 mcg Capsule (2 sources) Start: 11-17-2022 take 1 capsule by mouth once daily Zjfouudobstl-Tdy-Ghpb-Fa-Vit K (Bariatric Multivitamins) 45 mg iron- 800 mcg-120 mcg Capsule Active 1 CAP PO Daily November 16, 2022 11:00pm Start: 11-17-2022 take 1 capsule by mo uth once daily Etrhzdizzlij-Fjv-Qxgh-Fa-Vit K (Bariatri c Multivitamins) 45 mg iron- 800 mcg-120 mcg Capsule Active 1 CAP PO Daily November 17, 2022 12:00am nystatin 340841 unt/ml topical cream (20 sources) Polyene Antifungal Start: 03-07-2024 nystatin (M ycostatin) cream 03/07/2024 Active nystatin (Mycost atin) 265545 UNIT/GM powder Apply 1 application topically in [...] 05-18-2023 Episodic Other aftercare (1 source) Other long term care administrator (current) drug therapy; Translations: [OTH SNF CURRENT [...] Low,>-Panic High,A-Abnormal,AA-Critical Abnormal Performed at: 01 = [facility] [place] [place] [address] Farzana Hennessy MD, HPV APTIMA Negative Negative [facility] Comment on above: This nucleic acid am plification test detects fourteen high- risk HPV types (16,18,31,33,35,39,45,51,52,56,58,59,66,68) without differentiation. Performed at: =[facility] [address] [id number] Timber Grader: Farzana Hennessy MD, Phone: [phone] Performed at: WB - [facility] [address], [place] [id number] Timber Grader: Farzana Hennessy MD, Phone: [phone] IGP, APTIMA HPV, RFX 16/18,45 Note . [facility] Comment on above: TESTS RESULT FLAG UN ITS REF RANGE LAB DIAGNOSIS: 02 NEGATIVE FOR INTRAEPITHELIAL LESION OR MALIGNANCY. CELLULAR CHANGES ASSOCIATED WITH ATROPHY ARE PRESENT. Specimen adequacy: 02 Satisfactory for evaluation. Endocervical component may not be distinguished in cases of atrophy. Performed by: 02 Adela Acosta Manufacturing Mechanic (ASCP) . 02 Note: Note 02 The [...] High,A-Abnormal,AA-Critical Abnormal Performed at: 02 WB [facility] [place] [address] [facility] [place] [address] Farzana Hennessy MD, BRUSH-SPATULA CERVIX ENDOCERVIX [facility] MR KNEE RIGHT WO IV CONTRAST on [...] - bilat eral GE 2 Viewson 09-29-2024 [place] [id number] XRay Report Signed Patient: MICHELLE BE MR#: [id number] : 1960 Acct:[id number] Age/Sex: 63 / F ADM Date: 09/29/24 Loc: RAD Attending Dr: Elizabeth Culp NP Ordering Physician: Elizabeth Culp NP Date of Service: 09/29/24 Procedure(s): XR hip BHUMI Accession Number(s): [id number] cc: Adelaida Carrion NP; Elizabeth Culp NP [address] [address] Patient Name: MICHELLE BE MRN: [facility]:[id number] date: 1960 Sex: F Assigned Patient Location: [facility] Current Patient Location: [facility] Accession/Order Number: [id number] Exam Date: 09/29/2024 11:20 Report Date: 09/29/2024 [...] Bernal M.D. 09/29/2024 11:23 AM Dictation Location: [place] [address] Electronically authenticated by: [id number] Y Date: 09/29/2024 11:23 Dictated By: Edith Bernal M.D. Signed By: 09/29/24 1126 DD/ 1123 TD/TT: Street Openings Inspector: [facility] Radiology, Radiologist, MD - 09/29/2024 [place] [address] XRay Report Signed Patient: MICHELLE BE MR#: [id number] : 1960 Acct:[id number] Age/Sex: 63 / F ADM Date: 09/29/24 Loc: SAHIL Attending Dr: Elizabeth Culp NP Ordering Physician: Elizabeth Culp NP Date of Service: 09/29/24 Procedure(s): XR hip BHUMI Accession Number(s): [id number] cc: Adelaida Carrion NP; Elizabeth Culp NP The [address] [address] Patient Name: MICHELLE BE MRN: [facility]:[id number] date: 1960 Sex: F Assigned Patient Location: [facility] Current Patient Location: [facility] Accession/Order Number: [id number] Exam Date: 09/29/2024 11:20 Report Date: 09/29/2024 [...] Bernal M.D. 09/29/2024 11:23 AM Dictation Location: [place] [address] Electronically authenticated by: [id number] Y Date: 09/29/2024 11:23 Dictated By: Edith Bernal M.D. Signed By: 09/29/24 1126 DD/ 1123 TD/TT: Street Openings Inspector: [facility] Radiology Study observation (narrative) [facility] XR Pelvis AP and Hip - bilat eral GE 2 ViewsOrdered By: Radiologist Radiology on 09-29-2024 [facility] Quality Work Phone: CT LUNG SCREENING LOW DOSEon 09-26-2024 [place] [address] CT Scan Report Signed Patient: MICHELLE BE MR#: [id number] : 1960 Acct:[id number] Age/Sex: 63 / F ADM Date: 09/26/24 Loc: MAMMO Attending Dr: Adelaida Carrion NP Ordering Physician: Adelaida Carrion NP Date of Service: 09/26/24 Procedure(s): CT lung screening low-dose Accession Number(s): [id number] cc: Adelaida Carrion NP [address] [place] [address] Patient Name: MICHELLE BE MRN: [facility]:[id number] date: 1960 Sex: F Assigned Patient Location: MAMMO Current Patient Location: RAD Accession/Order Number: [id number] Exam Date: 09/26/2024 16:58 Report Date: 09/26/2024 [...] Guadalupe M.D. 09/26/2024 5:02 PM Dictation Location: [place] [address] Electronically authenticated by: [id number] Y Date: 09/26/2024 17:02 Dictated By: Willi Guadalupe M.D. Signed By: 09/26/24 1704 DD/ 01 TD/TT: Street Openings Inspector: [facility] Radiology, Radiologist, MD - 09/26/[address] [address] [address] Scan Report Signed Patient: MICHELLE BE MR#: [id number] : 1960 Acct:[id number] Age/Sex: 63 / F ADM Date: 09/26/24 Loc: MAMMO Attending Dr: Adelaida Carrion NP Ordering Physician: Adelaida Carrion NP Date of Service: 09/26/24 Procedure(s): CT lung screening low-dose Accession Number(s): [id number] cc: Adelaida Carrion NP [address] [address] Patient Name: MICHELLE BE MRN: [facility]:[id number] date: 1960 Sex: F Assigned Patient Location: [facility] Current Patient Location: RAD Accession/Order Number: [id number] Exam Date: 09/26/2024 16:58 Report Date: 09/26/2024 [...] Guadalupe M.D. 09/26/2024 5:02 PM Dictation Location: [place] [address] Electronically authenticated by: [id number] Y Date: 09/26/2024 17:02 Dictated By: Willi Guadalupe M.D. Signed By: 09/26/241703 DD/ 01 TD/TT: Street Openings Inspector: [facility] Radiology Study observation (narrative) [facility] CT LUNG SCREENING LOW DOSEOr dered By: Radiologist Radiology on 09-26-2024 [facility] Quality Work Phone: MM TOMOSYNTHESIS SCREENING B Ion 09-26-2024 [place] [address] Mammography Report Signed Patient: MICHELLE BE MR#: [id number] : 1960 Acct:[id number] Age/Sex: 63 / F ADM Date: 09/26/24 Loc: MAMMO Attending Dr: Adelaida Carrion NP Ordering Physician: Adelaida Carrion NP Results: Date of Service: 09/26/24 Follow Up: Procedure(s): MM tomosynthesis screening BI Accession Number(s): [id number] cc: Adelaida Carrion NP Patient Name: MICHELLE BE MR#: [id number] : 1960 Exam Date: 09/26/2024 Ordering Doctor: [...] Treatments None Family Cancers None LOCATION: [facility] BREAST COMPOSITION: There are scattered areas of [...] M.D. Signed By: 09/26/241642 DD/ 41 TD/TT: Street Openings Inspector: [facility] Radiology, Radiologist, MD - 09/26/2024 [place] [address] Mammography Report Signed Patient: MICHELLE BE MR#: [id number] : 1960 Acct:[id number] Age/Sex: 63 / F ADM Date: 09/26/24 Loc: MAMMO Attending Dr: Adelaida Carrion NP Ordering Physician: Adelaida Carrion NP Results: Date of Service: 09/26/24 Follow Up: Procedure(s): MM tomosynthesis screening BI Accession Number(s): [id number] cc: Adelaida Carrion NP Patient Name: MICHELLE BE MR#: [id number] : 1960 Exam Date: 09/26/2024 Ordering Doctor: [...] Treatments None Family Cancers None LOCATION: [facility] BREAST COMPOSITION: There are scattered areas of [...] M.D. Signed By: 09/26/241642 DD/ 41 TD/TT: Street Openings Inspector: [facility] Radiology Study observation (narrative) [facility] MM TOMOSYNTHESIS SCREENING B IOrdered By: Radiologist Radiology on 09-26-2024 [facility] Work Phone: XR SHOULDER RT MIN 2Von 09-05 [place] [id number] XRay Report Signed Patient: MICHELLE BE MR#: [id number] : 1960 Acct:[id number] Age/Sex: 63 / F ADM Date: 09/26/24 Loc: RAD Attending Dr: Elizabeth Culp NP Ordering Physician: Elizabeth Culp NP Date of Service: 09/26/24 Procedure(s): XR shoulder RT min 2V Accession Number(s): [id number] cc: Adelaida Carrion NP; Elizabeth Culp NP [address] [address] Patient Name: MICHELLE BE MRN: [facility]:[id number] date: 1960 Sex: F Assigned Patient Location: RAD Current Patient Location: RAD Accession/Order Number: [id number] Exam Date: 09/26/2024 13:34 Report Date: 09/26/2024 [...] Guadalupe M.D. 09/26/2024 1:35 PM Dictation Location: [place] [address] Electronically authenticated by: [id number] Y Date: 09/26/2024 13:35 Dictated By: Willi Guadalupe M.D. Signed By: 09/26/248 DD/ 34 TD/TT: Street Openings Inspector: [facility] Radiology, Radiologist, MD - 09/26/2024 [place] [address] XRay Report Signed Patient: MICHELLE BE MR#: [id number] : 1960 Acct:[id number] Age/Sex: 63 / F ADM Date: 09/26/24 Loc: RAD Attending Dr: Elizabeth Culp NP Ordering Physician: Elizabeth Culp NP Date of Service: 09/26/24 Procedure(s): XR shoulder RT min 2V Accession Number(s): [id number] cc: Adelaida Carrion NP; Elizabeth Culp NP The [place] [id number] Patient Name: MICHELLE BE MRN: [facility]:[id number] date: 1960 Sex: F Assigned Patient Location: [facility] Current Patient Location: [facility] Accession/Order Number: [id number] Exam Date: 09/26/2024 13:34 Report Date: 09/26/2024 [...] Guadalupe M.D. 09/26/2024 1:35 PM Dictation Location: [place] [address] Electronically authenticated by: [id number] Y Date: 09/26/2024 13:35 Dictated By: Willi Guadalupe M.D. Signed By: 09/26/24 1338 DD/ 1335 TD/TT: Street Openings Inspector: [facility] Radiology Study observation (narrative) [facility] XR SHOULDER RT MIN 2VOrdered By: Radiologist Radiology on 09-26-2024 [facility] Work Phone: HbA1c (Bld) [Mass fraction]o n 08-16-2024 Interpretation and review of laboratory results Normal [facility] - Hematology and Cell countson 08-16-2024 HbA1c (Bld) [Mass fraction] 5.6 % [facility] Complete Blood Count Auto Di ffon 03-05-2024 Basophils (Bld) [#/Vol] 0.0 10*3/uL Normal 0.0-0.2 [facility] Comment on above: Result Comment: PERF ORMED BY: [place] [address] PATHOLOGIST PREPAROLE COUNSELING AIDE ADIEL AGUSTIN M.D. Performed By: #### C BC, MG, CMP #### [place] [address] [place] Basophils/100 WBC (Bld) 0.5 % Normal . [facility] Comment on above: Performed By: #### C BC, MG, CMP #### [address] Eosinophils (Bld) [#/Vol] 0.2 10*3/uL Normal 0.0-0.45 [facility] Comment on above: Performed By: #### C BC MG, CMP #### [address] Eosinophils/100 WBC (Bld) 2.2 % Normal . [facility] Comment on above: Performed By: #### C BC, MG, CMP #### [address] Erythrocyte distribution width (RBC) [Ratio] 14.5 % Normal 11.9-15.3 [facility] Comment on above: Performed By: #### C BC MG, CMP #### [address] Hematocrit (Bld) [Volume fraction] 43.0 % Normal 34.0-46.4 [facility] Comment on above: Performed By: #### C BC, MG, CMP #### [place] [address] [place] Hemoglobin (Bld) [Mass/Vol] 14.3 g/dL Normal 11.8-15.4 [facility] Comment on above: Performed By: #### C BC, MG, CMP #### [place] [address] [place] Lymphocytes (Bld) [#/Vol] 1.8 10*3/uL Normal 1.00-4.8 [facility] Comment on above: Performed By: #### C BC, MG, CMP #### [address] Lymphocytes/100 WBC (Bld) 18.9 % Normal . [facility] Comment on above: Performed By: #### C BC, MG, CMP #### [facility] [address] MCH (RBC) [Entitic mass] 29.0 pg Normal 24.7-34.3 [facility] Comment on above: Performed By: #### C BC, MG, CMP #### [address] MCV (RBC) [Entitic vol] 87.0 fL Normal 80-100 [facility] Comment on above: Performed By: #### C BC, MG, CMP #### [address] Mean Corpuscular HGB Conc 33.4 g/dL Normal 32.0-35.0 [facility] Comment on above: Performed By: #### C BC, MG, CMP #### [address] Monocytes (Bld) [#/Vol] 0.5 10*3/uL Normal 0.0-0.8 [facility] Comment on above: Performed By: #### C BC, MG, CMP #### [address] Monocytes/100 WBC (Bld) 5.5 % Normal . [facility] Comment on above: Performed By: #### C BC, MG, CMP #### [address] Neutrophils (Bld) [#/Vol] 7.0 10*3/uL Normal 1.8-7.7 [facility] Comment on above: Performed By: #### C BC, MG, CMP #### [address] Neutrophils/100 WBC (Bld) 72.9 % Normal . [facility] Comment on above: Performed By: #### C BC, MG, CMP #### [address] NRBC% 0.0 /100{WBC} Normal 0-0.5 [facility] Comment on above: Performed By: #### C BC, MG, CMP #### [address] Platelet mean volume (Bld) [Entitic vol] 8.9 fL Normal 6.3-10.7 [facility] Comment on above: Performed By: #### C BC, MG, CMP #### [address] Platelets (Bld) [#/Vol] 289 10*3/uL Normal 150-450 [facility] Comment on above: Performed By: #### C BC, MG, CMP #### [address] RBC (Bld) [#/Vol] 4.94 10*6/uL Normal 3.60-5.00 [facility] Comment on above: Performed By: #### C BC, MG, CMP #### [address] WBC (Bld) [#/Vol] 9.6 10*3/uL Normal 3.8-11.6 [facility] Comment on above: Performed By: #### C BC, MG, CMP #### [address] Comprehensive Metabolic Pane [place] 03-05-2024 Albumin [Mass/Vol] 4.4 g/dL Normal 3.5-5.7 [facility] Comment on above: Performed By: #### C BC, MG, CMP #### [address] Albumin/Globulin [Mass ratio] 1.3 {ratio} Normal [facility] Comment on above: Performed By: #### C BC, MG, CMP #### [address] ALP [Catalytic activity/Vol] 79 U/L Normal 34-104 [facility] Comment on above: Performed By: #### C BC, MG, CMP #### [facility] [address] ALT [Catalytic activity/Vol] 23 U/L Normal 7-52 [facility] Comment on above: Performed By: #### C BC, MG, CMP #### [facility] [address] Anion gap [Moles/Vol] 15.4 mmol/L High 6.0-15.0 Th e [facility] Comment on above: Performed By: #### C BC, MG, CMP #### [facility] [address] AST [Catalytic activity/Vol] 36 U/L Normal 13-39 [facility] Comment on above: Performed By: #### C BC, MG, CMP #### [facility] [address] Bilirubin [Mass/Vol] 0.4 mg/dL Normal 0.3-1.0 [facility] Comment on above: Performed By: #### C BC, MG, CMP #### [facility] [address] [place] [address] [place] Calcium [Mass/Vol] 9.5 mg/dL Normal 8.6-10.3 [facility] Comment on above: Performed By: #### C BC, MG, CMP #### [facility] [address] [place] [address] [place] Chloride [Moles/Vol] 106 mmol/L Normal 98-107 [facility] Comment on above: Performed By: #### C BC, MG, CMP #### [facility] [address] [place] [id number] [place] CO2 [Moles/Vol] 23.1 mmol/L Normal 21.0-31.[address] [facility] Comment on above: Performed By: #### C BC, MG, CMP #### [facility] [address] [place] [id number] [place] Creatinine [Mass/Vol] 0.96 mg/dL Normal 0.60-1.20 [facility] Comment on above: Performed By: #### C BC, MG, CMP #### [address] Creatinine Clr Calc Pharmacy 84.51 Normal [facility] Comment on above: Performed By: #### C BC, MG, CMP #### [place] [address] [place] GFR/1.73 sq M.predicted MDRD (S/P/Bld) [Vol rate/Area] mL/min/{1.73_m2} Normal [facility] Comment on above: Performed By: #### C BC, MG, CMP #### [address] Globulin (S) [Mass/Vol] 3.3 g/dL Normal [facility] Comment on above: Performed By: #### C BC, MG, CMP #### [address] Glucose [Mass/Vol] 133 mg/dL High 70-100 [facility] Comment on above: Result Comment: [place] Glucose Reference Range is dependent on time and content of last meal. Glucose of more than 200 mg/dL in a nonstressed, ambulatory subject supports the diagnosis of Diabetes Mellitus. ADA recommended reference range Performed By: #### C BC, MG, CMP #### [address] Potassium [Moles/Vol] 3.5 mmol/L Normal 3.5-5.1 [facility] Comment on above: Performed By: #### C BC, MG, CMP #### [address] Protein [Mass/Vol] 7.7 g/dL Normal 6.4-8.9 [facility] Comment on above: Performed By: #### C BC, MG, CMP #### [address] Sodium [Moles/Vol] 141 mmol/L Normal 136-145 [facility] Comment on above: Performed By: #### C BC, MG, CMP #### [address] Urea nitrogen [Mass/Vol] 18 mg/dL Normal 7-25 [facility] Comment on above: Performed By: #### C BC, MG, CMP #### [address] Magnesiumon 03-05-2024 Magnesium [Mass/Vol] 2.0 mg/dL Normal 1.9-2.7 [facility] Comment on above: Result Comment: PERF ORMED BY: [place] [address] PATHOLOGIST PREPAROLE COUNSELING AIDE ADIEL AGUSTIN M.D. Performed By: #### C BC, MG, CMP #### [address] Complete Blood Count Auto Di ffon 03-04-2024 Basophils (Bld) [#/Vol] 0.1 10*3/uL Normal 0.0-0.2 [facility] Comment on above: Result Comment: PERF ORMED BY: [place] [address] PATHOLOGIST PREPAROLE COUNSELING AIDE ADIEL AGUSTIN M.D. Performed By: #### C MP, MG, CBC #### [address] Basophils/100 WBC (Bld) 0.6 % Normal . [facility] Comment on above: Performed By: #### C MP, MG, CBC #### [address] Eosinophils (Bld) [#/Vol] 0.2 10*3/uL Normal 0.0-0.45 [facility] Comment on above: Performed By: #### C MP, MG, CBC #### [place] [address] [place] Eosinophils/100 WBC (Bld) 1.9 % Normal . [facility] Comment on above: Performed By: #### C MP, MG, CBC #### [address] Erythrocyte distribution width (RBC) [Ratio] 14.6 % Normal 11.9-15.3 [facility] Comment on above: Performed By: #### C MP, MG, CBC #### [address] Hematocrit (Bld) [Volume fraction] 43.5 % Normal 34.0-46.4 [facility] Comment on above: Performed By: #### C MP, MG, CBC #### [address] Hemoglobin (Bld) [Mass/Vol] 14.4 g/dL Normal 11.8-15.4 [facility] Comment on above: Performed By: #### C MP, MG, CBC #### [address] Lymphocytes (Bld) [#/Vol] 1.8 10*3/uL Normal 1.00-4.8 [facility] Comment on above: Performed By: #### C MP, MG, CBC #### [address] Lymphocytes/100 WBC (Bld) 18.0 % Normal . [facility] Comment on above: Performed By: #### C MP, MG, CBC #### [address] MCH (RBC) [Entitic mass] 28.8 pg Normal 24.7-34.3 [facility] Comment on above: Performed By: #### C MP, MG, CBC #### [address] MCV (RBC) [Entitic vol] 87.0 fL Normal 80-100 [facility] Comment on above: Performed By: #### C MP, MG, CBC #### [address] Mean Corpuscular HGB Conc 33.2 g/dL Normal 32.0-35.0 [facility] Comment on above: Performed By: #### C MP, MG, CBC #### [facility] [address] [place] [address] [place] Monocytes (Bld) [#/Vol] 0.8 10*3/uL Normal 0.0-0.8 [facility] Comment on above: Performed By: #### C MP, MG, CBC #### [facility] [address] [place] [address] [place] Monocytes/100 WBC (Bld) 8.2 % Normal . [facility] Comment on above: Performed By: #### C MP, MG, CBC #### [facility] [address] [place] [address] [place] Neutrophils (Bld) [#/Vol] 7.3 10*3/uL Normal 1.8-7.7 [facility] Comment on above: Performed By: #### C MP, MG, CBC #### [facility] [address] [place] [address] [place] Neutrophils/100 WBC (Bld) 71.3 % Normal . [facility] Comment on above: Performed By: #### C MP, MG, CBC #### [facility] [address] [place] [address] [place] NRBC% 0.1 /100{WBC} Normal 0-0.5 [facility] Comment on above: Performed By: #### C MP, MG, CBC #### [facility] [address] [place] [address] [place] Platelet mean volume (Bld) [Entitic vol] 8.8 fL Normal 6.3-10.7 [facility] Comment on above: Performed By: #### C MP, MG, CBC #### [facility] [address] [place] [address] [place] Platelets (Bld) [#/Vol] 334 10*3/uL Normal 150-450 [facility] Comment on above: Performed By: #### C MP, MG, CBC #### [facility] [address] [place] [address] [place] RBC (Bld) [#/Vol] 5.01 10*6/uL High 3.60-5.00 [facility] Comment on above: Performed By: #### C MP, MG, CBC #### [address] WBC (Bld) [#/Vol] 10.3 10*3/uL Normal 3.8-11.6 [facility] Comment on above: Performed By: #### C MP, MG, CBC #### [address] Comprehensive Metabolic Pane [place] 03-04-2024 Albumin [Mass/Vol] 4.5 g/dL Normal 3.5-5.7 [facility] Comment on above: Performed By: #### C MP, MG, CBC #### [address] Albumin/Globulin [Mass ratio] 1.4 {ratio} Normal [facility] Comment on above: Performed By: #### C MP, MG, CBC #### [address] ALP [Catalytic activity/Vol] 79 U/L Normal 34-104 [facility] Comment on above: Performed By: #### C MP, MG, CBC #### [address] ALT [Catalytic activity/Vol] 19 U/L Normal 7-52 [facility] Comment on above: Performed By: #### C MP, MG, CBC #### [address] Anion gap [Moles/Vol] 11.4 mmol/L Normal 6.0-15.0 e [facility] Comment on above: Performed By: #### C MP, MG, CBC #### [address] AST [Catalytic activity/Vol] 37 U/L Normal 13-39 [facility] Comment on above: Performed By: #### C MP, MG, CBC #### [address] Bilirubin [Mass/Vol] 0.5 mg/dL Normal 0.3-1.0 [facility] Comment on above: Performed By: #### C MP, MG, CBC #### [facility] [address] Calcium [Mass/Vol] 9.6 mg/dL Normal 8.6-10.3 [facility] Comment on above: Performed By: #### C MP, MG, CBC #### [facility] [address] [place] [address] [place] Chloride [Moles/Vol] 107 mmol/L Normal 98-107 [facility] Comment on above: Performed By: #### C MP, MG, CBC #### [facility] [address] CO2 [Moles/Vol] 27.4 mmol/L Normal 21.0-31.[address] [facility] Comment on above: Performed By: #### C MP, MG, CBC #### [place] [address] [place] Creatinine [Mass/Vol] 0.91 mg/dL Normal 0.60-1.20 [facility] Comment on above: Performed By: #### C MP, MG, CBC #### [facility] [address] [place] [address] [place] Creatinine Clr Calc Pharmacy 90.12 Normal [facility] Comment on above: Performed By: #### C MP, MG, CBC #### [facility] [address] [place] [address] [place] GFR/1.73 sq M.predicted MDRD (S/P/Bld) [Vol rate/Area] mL/min/{1.73_m2} Normal [facility] Comment on above: Performed By: #### C MP, MG, CBC #### [facility] [address] [place] [address] [place] Globulin (S) [Mass/Vol] 3.2 g/dL Normal [facility] Comment on above: Performed By: #### C MP, MG, CBC #### [facility] [address] [place] [address] [place] Glucose [Mass/Vol] 100 mg/dL Normal 70-100 [facility] Comment on above: Result Comment: [place] Glucose Reference Range is dependent on time and content of last meal. Glucose of more than 200 mg/dL in a nonstressed, ambulatory subject supports the diagnosis of Diabetes Mellitus. ADA recommended reference range Performed By: #### C MP, MG, CBC #### [facility] [address] Potassium [Moles/Vol] 3.8 mmol/L Normal 3.5-5.1 [facility] Comment on above: Performed By: #### C MP, MG, CBC #### [facility] [address] [place] [address] [facility] Protein [Mass/Vol] 7.7 g/dL Normal 6.4-8.9 [facility] Comment on above: Performed By: #### C MP, MG, CBC #### [facility] [address] [place] [address] [place] Sodium [Moles/Vol] 142 mmol/L Normal 136-145 [facility] Comment on above: Performed By: #### C MP, MG, CBC #### [facility] [address] [place] [phone] [place] Urea nitrogen [Mass/Vol] 15 mg/dL Normal 7-25 [facility] Comment on above: Performed By: #### C MP, MG, CBC #### [place] [id number] [facility] MR head/brain wo/w conon MR head/brain wo/w con [facility] [place] [address] MRI Report Signed Patient: Michelle Be MR#: [id number] : 1960 Acct:[id number] Age/Sex: 63 / F ADM Date: 03/03/24 Loc: Room: [address] [place] [address] Type: ADM IN Attending Dr: Delta Gan [...] Willi Guadalupe M.D.03/04/2024 2:32 PM Dictation Location: [place] [address] Transcribed By: [facility] 03/04/24 1432 Dictated By: Willi Guadalupe II, MD 03/04/24 1424 Signed By: 03/04/24 1432 Normal [facility] Magnesiumon 03-04-2024 Magnesium [Mass/Vol] 2.0 mg/dL Normal 1.9-2.7 [facility] Comment on above: Result Comment: PERF ORMED BY: [place] [address] PATHOLOGIST PREPAROLE COUNSELING AIDE ADIEL AGUSTIN M.D. Performed By: #### C MP, MG, CBC #### [address] Complete Blood Count Auto Di ffon 03-03-2024 Basophils (Bld) [#/Vol] 0.1 10*3/uL Normal 0.0-0.2 [facility] Comment on above: Order Comment: RIN T O COME TRY,KAH,1606 Result Comment: PERF ORMED BY: [place] [address] PATHOLOGIST PREPAROLE COUNSELING AIDE ADIEL AGUSTIN M.D. Performed By: #### C BC, CMP #### [place] [address] [place] Basophils/100 WBC (Bld) 0.6 % Normal . [facility] Comment on above: Order Comment: RIN T O COME TRY,KAH,1606 Performed By: #### C BC, CMP #### [place] [address] [place] Eosinophils (Bld) [#/Vol] 0.1 10*3/uL Normal 0.0-0.45 [facility] Comment on above: Order Comment: RIN T O COME TRY,KAH,1606 Performed By: #### C BC, CMP #### [place] [address] [place] Eosinophils/100 WBC (Bld) 1.0 % Normal . [facility] Comment on above: Order Comment: RIN T O COME TRY,KAH,1606 Performed By: #### C BC, CMP #### [address] Erythrocyte distribution width (RBC) [Ratio] 14.6 % Normal 11.9-15.3 [facility] Comment on above: Order Comment: RIN T O COME TRY,KAH,1606 Performed By: #### C BC, CMP #### [place] [address] [place] Hematocrit (Bld) [Volume fraction] 42.9 % Normal 34.0-46.4 [facility] Comment on above: Order Comment: RIN T O COME TRY,KAH,1606 Performed By: #### C BC, CMP #### [place] [address] [place] Hemoglobin (Bld) [Mass/Vol] 14.5 g/dL Normal 11.8-15.4 [facility] Comment on above: Order Comment: RIN T O COME TRY,KAH,1607 Performed By: #### C BC, CMP #### [address] Lymphocytes (Bld) [#/Vol] 1.7 10*3/uL Normal 1.00-4.8 [facility] Comment on above: Order Comment: RIN T O COME TRY,KAH,1607 Performed By: #### C BC, CMP #### [address] Lymphocytes/100 WBC (Bld) 15.7 % Normal . [facility] Comment on above: Order Comment: RIN T O COME TRY,KAH,1607 Performed By: #### C BC, CMP #### [address] MCH (RBC) [Entitic mass] 29.1 pg Normal 24.7-34.3 [facility] Comment on above: Order Comment: RIN T O COME TRY,KAH,1607 Performed By: #### C BC, CMP #### [address] MCV (RBC) [Entitic vol] 85.9 fL Normal 80-100 [facility] Comment on above: Order Comment: RIN T O COME TRY,KAH,1607 Performed By: #### C BC, CMP #### [address] Mean Corpuscular HGB Conc 33.8 g/dL Normal 32.0-35.0 [facility] Comment on above: Order Comment: RIN T O COME TRY,KAH,1607 Performed By: #### C BC, CMP #### [address] Monocytes (Bld) [#/Vol] 0.9 10*3/uL High 0.0-0.8 [facility] Comment on above: Order Comment: RIN T O COME TRY,KAH,1607 Performed By: #### C BC, CMP #### [facility] [address] [place] [address] [place] Monocytes/100 WBC (Bld) 8.4 % Normal . [facility] Comment on above: Order Comment: RIN T O COME TRY,KAH,1607 Performed By: #### C BC, CMP #### [facility] [address] [place] [address] [place] Neutrophils (Bld) [#/Vol] 8.0 10*3/uL High 1.8-7.7 [facility] Comment on above: Order Comment: RIN T O COME TRY,KAH,1607 Performed By: #### C BC, CMP #### [facility] [address] Neutrophils/100 WBC (Bld) 74.3 % Normal . [facility] Comment on above: Order Comment: RIN T O COME TRY,KAH,1607 Performed By: #### C BC, CMP #### [facility] [address] [place] [address] [place] NRBC% 0.1 /100{WBC} Normal 0-0.5 [facility] Comment on above: Order Comment: RIN T O COME TRY,KAH,1607 Performed By: #### C BC, CMP #### [address] Platelet mean volume (Bld) [Entitic vol] 8.9 fL Normal 6.3-10.7 [facility] Comment on above: Order Comment: RIN T O COME TRY,KAH,1607 Performed By: #### C BC, CMP #### [facility] [address] [place] [address] [place] Platelets (Bld) [#/Vol] 291 10*3/uL Normal 150-450 [facility] Comment on above: Order Comment: RIN T O COME TRY,KAH,1607 Performed By: #### C BC, CMP #### [facility] [address] [place] [address] [place] RBC (Bld) [#/Vol] 4.99 10*6/uL Normal 3.60-5.00 [facility] Comment on above: Order Comment: RIN T O COME TRY,KAH,1607 Performed By: #### C BC, CMP #### [facility] [address] WBC (Bld) [#/Vol] 10.7 10*3/uL Normal 3.8-11.6 [facility] Comment on above: Order Comment: RIN T O COME TRY,KAH,1607 Performed By: #### C BC, CMP #### [facility] [address] Comprehensive Metabolic Pane [place] 03-03-2024 Albumin [Mass/Vol] 4.6 g/dL Normal 3.5-5.7 [facility] Comment on above: Order Comment: RIN T O COME TRY,KAH,1607 Performed By: #### C BC, CMP #### [address] Albumin/Globulin [Mass ratio] 1.4 {ratio} Normal [facility] Comment on above: Order Comment: RIN T O COME TRY,KAH,1607 Performed By: #### C BC, CMP #### [address] ALP [Catalytic activity/Vol] 80 U/L Normal 34-104 [facility] Comment on above: Order Comment: RIN T O COME TRY,KAH,1607 Performed By: #### C BC, CMP #### [address] ALT [Catalytic activity/Vol] 16 U/L Normal 7-52 [facility] Comment on above: Order Comment: RIN T O COME TRY,KAH,1607 Performed By: #### C BC, CMP #### [address] Anion gap [Moles/Vol] 13.6 mmol/L Normal 6.0-15.0 [facility] e [facility] Comment on above: Order Comment: RIN T O COME TRY,KAH,1607 Performed By: #### C BC, CMP #### [address] AST [Catalytic activity/Vol] 35 U/L Normal 13-39 [facility] Comment on above: Order Comment: RIN T O COME TRY,KAH,1607 Performed By: #### C BC, CMP #### [facility] [address] Bilirubin [Mass/Vol] 0.3 mg/dL Normal 0.3-1.0 [facility] Comment on above: Order Comment: RIN T O COME TRY,KAH,1607 Performed By: #### C BC, CMP #### [facility] [address] Calcium [Mass/Vol] 9.3 mg/dL Normal 8.6-10.3 [facility] Comment on above: Order Comment: RIN T O COME TRY,KAH,160 Performed By: #### C BC, CMP #### [address] Chloride [Moles/Vol] 109 mmol/L High 98-107 [facility] Comment on above: Order Comment: RIN T O COME TRY,KAH,160 Performed By: #### C BC, CMP #### [place] [address] [place] CO2 [Moles/Vol] 22.4 mmol/L Normal 21.0-31.[address] [facility] Comment on above: Order Comment: RIN T O COME TRY,KAH,1607 Performed By: #### C BC, CMP #### [facility] [address] [place], [place] [id number] [place] Creatinine [Mass/Vol] 0.93 mg/dL Normal 0.60-1.20 [facility] Comment on above: Order Comment: RIN T O COME TRY,KAH,1607 Performed By: #### C BC, CMP #### [facility] [address] [place] [address] [place] Creatinine Clr Calc Pharmacy 87.94 Normal [facility] Comment on above: Order Comment: RIN T O COME TRY,KAH,160 Result Comment: PERF ORMED BY: [place] [address] PATHOLOGIST PREPAROLE COUNSELING AIDE ADIEL AGUSTIN M.D. Performed By: #### C BC, CMP #### [facility] [address] [place] [address] [place] GFR/1.73 sq M.predicted MDRD (S/P/Bld) [Vol rate/Area] mL/min/{1.73_m2} Normal [facility] Comment on above: Order Comment: REY T O COME CHIQUITA,WEN,1606 Performed By: #### C BC, CMP #### [facility] [address] [place] [id number] [place] Globulin (S) [Mass/Vol] 3.2 g/dL Normal [facility] Comment on above: Order Comment: RIN T O COME TRY,KAH,1606 Performed By: #### C BC, CMP #### [address] Glucose [Mass/Vol] 105 mg/dL High 70-100 [facility] Comment on above: Order Comment: RIN T O COME TRY,KAH,1606 Result Comment: [facility] Glucose Reference Range is dependent on time and content of last meal. Glucose of more than 200 mg/dL in a nonstressed, ambulatory subject supports the diagnosis of Diabetes Mellitus. ADA recommended reference range Performed By: #### C BC, CMP #### [address] Potassium [Moles/Vol] 4.0 mmol/L Normal 3.5-5.1 [facility] Comment on above: Order Comment: RIN T O COME CHIQUITA,WEN,1606 Performed By: #### C BC, CMP #### [facility] [address] [place] [address] [place] Protein [Mass/Vol] 7.8 g/dL Normal 6.4-8.9 [facility] Comment on above: Order Comment: RIN T O COME TRY,KAH,1606 Performed By: #### C BC, CMP #### [place] [id number] [facility] Sodium [Moles/Vol] 141 mmol/L Normal 136-145 [facility] Comment on above: Order Comment: RIN T O COME TRY,WEN,1607 Performed By: #### C BC, CMP #### [facility] [address] Urea nitrogen [Mass/Vol] 15 mg/dL Normal 7-25 [facility] Comment on above: Order Comment: REY PORRAS,WEN,1607 Performed By: #### C BC, CMP #### [facility] [address] [place] [id number] [facility] IGP,APTIMA HPV,AGE GDLNon AGE GDLN ACOG TESTING Note . [facility] Comment on above: TESTS RESULT FLAG UN ITS REF RANGE LAB Clinician Provided Cytology Information Source.............Cervix;Endocervix No. of containers..01 ThinPrep Vial Age Algo ACOG Tona... 30-65 01 FLAG LEGEND: L-Low Normal,H-High Normal,LL-Alert Low,HH-Alert High <-Panic Low,>-Panic High,A-Abnormal,AA-Critical Abnormal Performed at: 01 =G [address] [address] Farzana Hennessy MD, HPV APTIMA Negative Negative [facility] Comment on above: This nucleic acid am plification test detects fourteen high- risk HPV types (16,18,31,33,35,39,45,51,52,56,58,59,66,68) without differentiation. Performed at: =G - [facility] [address], [place] [id number] Timber Grader: Farzana Hennessy MD, Phone: [phone] Performed at: [facility] [address] [place], [place] [id number] Timber Grader: Scott Sandoval MD, Phone: [phone] IGP, APTIMA HPV, RFX 16/18,45 Note . [facility] Comment on above: TESTS RESULT FLAG UN ITS REF RANGE LAB DIAGNOSIS: 02 NEGATIVE FOR INTRAEPITHELIAL LESION OR MALIGNANCY. Specimen adequacy: 02 Satisfactory for evaluation. Endocervical and/or squamous metaplastic cells (endocervical component) are present. Performed by: Lg Bustamante, Negative Turner Apprentice (ASC) . 02 Note: Note 03 The [...] High,A-Abnormal,AA-Critical Abnormal Performed at: 02 KWCYT [facility] [place] [address] [address] [place] [address] Scott Sandoval MD, 03 WB [facility] [address] [address] Farzana Hennessy MD, BROOM-ALONE CERVIX ENDOCERVIX [facility] Urinalysis macro (dipstick) panel (U)on 01-28-2024 Bilirubin, UA Negative Negative - 4(70) +++ mg/dL [facility] Blood, UA Negative Negative - 50 Kranthi/mcL [facility] Clarity, UA Clear [facility] Color, UA Dark Tania [facility] Glucose, UA Negative Negative - 2000(110) ++++ mg/dL [facility] Interpretation and review of laboratory results Abnormal [facility] Ketones, UA Negative Negative - 160(16) ++++ mg/dL [facility] Leukocytes, UA Trace Negative - 500+++ Radha/mcL [facility] Nitrite, UA Negative Negative - Positive [facility] pH, UA 5.5 5 - 9 [facility] Protein, UA Negative Negative - 2000(20) ++++ mg/dL [facility] Spec Grav, UA 1.025 1 - 1.03 [facility] Urobilinogen, UA 0.2 0.2 - 12 mg/dL [facility] MHPT CULT,URINEon 01-23-2024 Interpretation and review of laboratory results Abnormal [facility]PT CULT,URINE Specimen Description .CLEAN CATCH URINE [facility]PT CULT,URINE Culture ESCHERICHIA COLI >100,000 CFU/ML Abnormal [facility]PT CULT,URINE STREPTOCOCCI, BETA HEMOLYTIC GROUP B 10 to 50,000 CFU/ML Abnormal [facility]PT CULT,URINE Report Status FINAL 01/23/2024 [facility]PT CULT,URINE SUSCEPTIBILITY [facility] CULT,URINE Organism ESCHERICHIA COLI [facility] CULT,URINE Method CROW [facility] CULT,URINE Ampicillin 16 INTERMEDIATE Intermediate [facility] CULT,URINE Cefazolin <=4 SUSCEPTIBLE Susceptible [facility]PT CULT,URINE Cefazolin sensitivit y results can be used to predict the effectiveness of oral Susceptible [facility] MHPT CULT,URINE cephalosporins (eg. Cephalexin) in uncomplicated Urinary Tract Infections due Susceptible [facility]PT CULT,URINE to E. coli, K. pneumoniae, and P. mirabilis Susceptible [facility]PT CULT,URINE Ceftriaxone <=0.25 SUSCEPTIBLE Susceptible [facility]PT CULT,URINE Negative Susceptible [facility]PT CULT,URINE Gentamicin <=1 SUSCEPTIBLE Susceptible [facility] CULT,URINE Levofloxacin <=0.12 SUSCEPTIBLE Susceptible [facility]PT CULT,URINE Nitrofurantoin <=16 SUSCEPTIBLE Susceptible [facility]PT CULT,URINE Piperacillin/Tazobac ta m <=4 SUSCEPTIBLE Susceptible [facility]PT CULT,URINE Tobramycin <=1 SUSCEPTIBLE Susceptible [facility]PT CULT,URINE Trimethoprim/Sulfa <=20 SUSCEPTIBLE Susceptible [facility] 01-05-2024 Anion gap [Moles/Vol] 11.1 mmol/L [facility] Calcium [Mass/Vol] 9.2 mg/dL 8.5 - 10. 1 mg/dL [facility] Chloride [Moles/Vol] 105 mmol/L 98 - 10 7 mmol/L [facility] CO2 [Moles/Vol] 28.0 mmol/L 21.0 - 32.0 mmol/L [facility] Creatinine [Mass/Vol] 1.08 mg/dL High 0.55 - 1.02 mg/dL [facility] GFR/1.73 sq M.predicted CKD-EPI (S/P/Bld) [Vol rate/Area] >60 60 - PINF [facility] Glucose [Mass/Vol] 92 mg/dL 74 - 106 mg/dL [facility] Interpretation and review of laboratory results Abnormal [facility] Potassium [Moles/Vol] 4.1 mmol/L 3.5 - 5.1 mmol/L [facility] Sodium [Moles/Vol] 140 mmol/L 136 - 145 mmol/L [facility] TBH EGFR-NON AF ETHIOPIAN 51 Low 60 - PINF [facility] Urea nitrogen [Mass/Vol] 17.0 mg/dL 7.0 - 18.0 mg/dL [facility] Urea nitrogen/Creatinine [Mass ratio] 15.7 mg/mg [facility] Amphetamine Screen Ql (U)Ord ered By: Jace Graham on 03-23-2023 Amphetamines Ql (U) Negative Negative [facility] Barbiturates [Presence] in U rine by Screen methodOrdered By: Jace Graham on 03-23-2023 Barbiturates Screen Ql (U) Negative Negative [facility] Benzodiazepines Screen Ql (U )Ordered By: Jace Graham on 03-23-2023 Benzodiazepines Ql (U) Negative Negative [facility] Benzoylecgonine [Presence] i n Urine by Screen methodOrdered By: Jace Graham on 03-23-2023 Benzoylecgonine Screen Ql (U) Negative Negative [facility] Cannabinoids [Presence] in U rine by Screen methodOrdered By: Jace Graham on 03-23-2023 Cannabinoids Screen Ql (U) Negative Negative [facility] Comment on above: These are [...] on 03-23-2023 Phencyclidine Ql (U) Negative Negative [facility] Cholesterol [Mass/volume] in Serum or PlasmaOrdered By: Eduardo Monk on 11-18-2022 Cholesterol [Mass/Vol] 159 mg/dL 140-200 [facility] Comment on above: Chol less than 200 m g/dl low riskChol 201-239 mg/dl borderline riskChol 240 mg/dl and greater high risk Cholesterol in LDL Calc [Mas s/Vol]Ordered By: Eduardo Monk on 11-18-2022 Cholesterol in LDL [Mass/Vol] 84 mg/dL 0-100 [facility] Comment on above: LDL ATP III CLASSIFI CATIONLDL less than 100 mg/dL OptimalLDL 100-129 mg/dL Near or above optimalLDL 130-159 mg/dL Borderline highLDL 160-189 mg/dL HighLDL greater than 189 mg/dL Very high Cholesterol in VLDL Calc [Ma ss/Vol]Ordered By: Eduardo Monk on 11-18-2022 Cholesterol in VLDL [Mass/Vol] 28 mg/dL [facility] Serum or plasma high density lipoprotein (HDL) cholesterol measurementOrdered By: Eduardo Monk on 11-18-2022 Cholesterol in HDL [Mass/Vol] 46 mg/dL 23-92 [facility] Comment on above: HDL CHOL ATP-III CLA SSIFICATION Cardiovascular RiskHDL > or equal to 60 mg/dL LOWHDL < 40 mg/dL HIGH Serum or plasma total choles terol/high density lipoprotein (HDL) cholesterol mass ratOrdered By: Eduardo Monk on 11-18-2022 Cholesterol.total/Chol esterol in HDL [Mass ratio] 3.5 {ratio} <5.0 [facility] Thyrotropin [Units/volume] i n Serum or PlasmaOrdered By: Eduardo Monk on 11-18-2022 TSH Qn 2.13 m[IU]/L 0.45-5.33 [facility] Triglyceride [Mass/volume] i n Serum or PlasmaOrdered By: Eduardo Monk on 11-18-2022 Triglyceride [Mass/Vol] 144 mg/dL 0-149 [facility] Comment on above: TRIG ATP III CLASSIF ICATIONTRIG less than 150 mg/dL NormalTRIG 150-199 mg/dL Borderline highTRIG 200-500 mg/dL High TRIG greater than 500 mg/dL Very highStandard traceable to the Center for Disease Conrtrol and Prevention (CDC) test method. Vitamin D+Metabolites [Mass/ volume] in Serum or PlasmaOrdered By: Eduardo Monk on 11-18-2022 Vitamin D+Metabolites [Mass/Vol] 50.4 ng/mL 30-100 [facility] Comment on above: VITAMIN D [...] By: #### A 1C #### [facility] [address] [address] [address] Bebeto Alvarado Basophils/100 WBC (Bld) 0.6 % Normal 0.2-2.0 [facility] Comment on above: Performed By: #### A 1C #### [facility] [address] [address] [address] Bebeto Alvarado EO # 0.2 103/ul Normal 0.0-0.7 [facility] Comment on above: Performed By: #### A 1C #### [facility] [address] [place] [address] Dr. Bebeto Alvarado Eosinophils/100 WBC (Bld) 2.3 % Normal 0.9-7.0 [facility] Comment on above: Performed By: #### A 1C #### [facility] [address] [place] [address] Dr. Bebeto Alvarado Erythrocyte distribution width (RBC) [Ratio] 13.8 % Normal 11.0-15.0 [facility] Comment on above: Performed By: #### A 1C #### [facility] [address] [place] [address] Dr. Bebeto Alvarado Hematocrit (Bld) [Volume fraction] 41.2 % Normal 36.0-48.0 [facility] Comment on above: Performed By: #### A 1C #### [facility] [address] [place] [address] Dr. Bebeto Alvarado Hemoglobin (Bld) [Mass/Vol] 13.2 g/dL Normal 12.0-16.0 [facility] Comment on above: Performed By: #### A 1C #### [facility] [address] [place] [address] Dr. Bebeto Alvarado IG # 0.03 10e3/ul Normal 0.00-0.03 [facility] Comment on above: Performed By: #### A 1C #### [facility] [address] [place] [address] Dr. Bebeto Alvarado IG % 0.4 % Normal 0.0-0.5 [facility] Comment on above: Performed By: #### A 1C #### [facility] [address] [place] [address] Dr. Bebeto Alvarado LYMPH # 2.1 103/ul Normal 1.2-3.8 [facility] Comment on above: Performed By: #### A 1C #### [facility] [address] [place] [address] Dr. Bebeto Alvarado Lymphocytes/100 WBC (Bld) 25.9 % Normal 20.5-60.0 [facility] Comment on above: Performed By: #### A 1C #### [facility] [address] [place] [address] Dr. Bebeto Alvarado MANUAL DIFF REQ NO Normal [facility] Comment on above: Performed By: #### A 1C #### [facility] [address] [place] [address] Dr. Bebeto Alvarado MCH (RBC) [Entitic mass] 28.0 pg Normal 26.7-34.0 [facility] Comment on above: Performed By: #### A 1C #### [facility] [address] [place] [address] Dr. Bebeto Alvarado MCHC (RBC) [Mass/Vol] 32.0 g/dL Normal 29.9-35.2 [facility] Comment on above: Performed By: #### A 1C #### [facility] [address] [place] [address] Dr. Bebeto Alvarado MCV (RBC) [Entitic vol] 87.5 fL Normal 81.0-99.0 [facility] Comment on above: Performed By: #### A 1C #### [facility] [address] [place] [address] Dr. Bebeto Alvarado MONO # 0.5 103/ul Normal 0.3-0.8 [facility] Comment on above: Performed By: #### A 1C #### [facility] [address] [address] [address] Bebeto Alvarado Monocytes/100 WBC (Bld) 6.6 % Normal 1.7-12.0 [facility] Comment on above: Performed By: #### A 1C #### [facility] [address] [place] [address] Dr. Bebeto Alvarado NEUT # 5.1 103/ul Normal 1.4-6.5 [facility] Comment on above: Performed By: #### A 1C #### [facility] [address] [place] [address] Dr. Bebeto Alvarado Neutrophils/100 WBC (Bld) 64.2 % Normal 43.0-75.0 [facility] Comment on above: Performed By: #### A 1C #### [facility] [address] [place] [address] Dr. Bebeto Alvarado Platelet mean volume (Bld) [Entitic vol] 11.2 fL Normal 9.5-13.5 [facility] Comment on above: Performed By: #### A 1C #### [facility] [address] [place] [address] Dr. Bebeto Alvarado PLT 252 103/ul Normal 150-450 [facility] Comment on above: Performed By: #### A 1C #### [facility] [address] [place] [address] Dr. Bebeto Alvarado RBC 4.71 106/ul Normal 4.20-5.40 [facility] Comment on above: Performed By: #### A 1C #### [facility] [address] [place] [address] Dr. Bebeto Alvarado WBC 8.0 103/ul Normal 4.0-11.0 [facility] Comment on above: Performed By: #### A 1C #### [facility] [address] [place] [address] Dr. Bebeto Alvarado GLYCOHEMOGLOBIN A1Con 2022 ADA RECOMMENDATION SEE BELOW Normal [facility] Comment on above: Result Comment: ADA RECOMMENDED LIMIT 4.0 - 6.0 ADA THERAPEUTIC TARGET < 7.0 ACTION SUGGESTED > 7.0 Performed By: #### A 1C #### [facility] [address] [address] [address] Bebeto Alvarado Glucose [Mass/Vol] 114 mg/dL Normal [facility] Comment on above: Performed By: #### A 1C #### [facility] [address] [place] [address] Dr. Bebeto Alvarado HbA1c (Bld) [Mass fraction] 5.6 % Normal 4.5-6.2 [facility] Comment on above: Performed By: #### A 1C #### [facility] [address] [place] [address] Dr. Bebeto Alvarado IRONon 07-25-2022 Iron [Mass/Vol] 60.0 ug/dL Normal 50.0-170.0 [facility] Comment on above: Performed By: #### V ITB12, IRON #### [facility] [address] [place] [address] Dr. Bebeto Alvarado LIPID PROFILEon 07-25-2022 CHOL-HDL RATIO NORM SEE BELOW Normal [facility] Comment on above: Result Comment: 3.3 - 4.4 LOW RISK 4.4 - 7.1 AVERAGE RISK 7.1 - 11.0 MODERATE RISK >11.0 HIGH RISK Performed By: #### C MP, LIPID #### [facility] [address] [place] [address] Dr. Bebeto Alvarado Cholesterol [Mass/Vol] 144 mg/dL Normal <=200 [facility] Comment on above: Performed By: #### C MP, LIPID #### [facility] [address] [place] [address] Dr. Bebeto Alvarado Cholesterol in HDL [Mass/Vol] 39 mg/dL Critically low 40-60 [facility] Comment on above: Performed By: #### C MP, LIPID #### [facility] [address] [place] [address] Dr. Bebeto Alvarado Cholesterol in LDL [Mass/Vol] 74.6 mg/dL Normal [facility] Comment on above: Performed By: #### C MP, LIPID #### [facility] [address] [address] [address] Bebeto Alvarado Cholesterol.total/Chol esterol in HDL [Mass ratio] 3.7 {ratio} Normal [facility] Comment on above: Performed By: #### C MP, LIPID #### [facility] [address] [address] [address] Bebeto Alvarado HDL NORMAL > or = 60 mg/dl - LO W CARDIOVASCULAR RISK <40 mg/dl - HIGH CARDIOVASCULAR RISK Normal [facility] Comment on above: Performed By: #### C MP, LIPID #### [facility] [address] [address] [address] Bebeto Alvarado LDL CALC NORMAL SEE BELOW Normal [facility] Comment on above: Result Comment: <100 mg/dl OPTIMAL 100 - 129 mg/dl NEAR OR ABOVE OPTIMAL 130 - 159 mg/dl BORDERLINE HIGH 160 - 189 mg/dl HIGH >190 mg/dl VERY HIGH Performed By: #### C MP, LIPID #### [facility] [address] [address] [address] Bebeto Alvarado Triglyceride [Mass/Vol] 152 mg/dL Critically high <=150 [facility] Comment on above: Performed By: #### C MP, LIPID #### [facility] [address] [place] [address] Dr. Bebeto Alvarado VLDL CALC 30.4 mg/dL Normal [facility] Comment on above: Performed By: #### C MP, LIPID #### [facility] [address] [address] [address] Bebeto Alvarado PROF 14(COMP METB)on 023 Albumin [Mass/Vol] 3.7 g/dL Normal 3.4-5.0 [facility] Comment on above: Performed By: #### C MP, LIPID #### [facility] [address] [place] [address] Dr. Bebeto Alvarado Albumin/Globulin [Mass ratio] 0.9 {ratio} Normal [facility] Comment on above: Performed By: #### C MP, LIPID #### [facility] [address] [place] [address] Dr. Bebeto Alvarado ALP [Catalytic activity/Vol] 90 U/L Normal 46-116 [facility] Comment on above: Performed By: #### C MP, LIPID #### [facility] [address] [place] [address] Dr. Bebeto Alvarado ALT [Catalytic activity/Vol] 38 U/L Normal 14-59 [facility] Comment on above: Performed By: #### C MP, LIPID #### [facility] [address] [place] [address] Dr. Bebeto Alvarado Anion gap [Moles/Vol] 12.1 mmol/L Normal [facility] Comment on above: Performed By: #### C MP, LIPID #### [facility] [address] [place] [address] Dr. Bebeto Alvarado AST [Catalytic activity/Vol] 26 U/L Normal 15-37 [facility] Comment on above: Performed By: #### C MP, LIPID #### [facility] [address] [place] [address] Dr. Bebeto Alvarado Bilirubin [Mass/Vol] 0.3 mg/dL Normal 0.2-1.0 [facility] Comment on above: Performed By: #### C MP, LIPID #### [facility] [address] [place] [address] Dr. Bebeto Alvarado Calcium [Mass/Vol] 9.3 mg/dL Normal 8.5-10.1 [facility] Comment on above: Performed By: #### C MP, LIPID #### [facility] [address] [place] [address] Dr. Bebeto Alvarado Chloride [Moles/Vol] 107 mmol/L Normal 98-107 [facility] Comment on above: Performed By: #### C MP, LIPID #### [facility] [address] [place] [address] Dr. Bebeto Alvarado CO2 [Moles/Vol] 27.9 mmol/L Normal 21.0-32.0 [facility] Comment on above: Performed By: #### C MP, LIPID #### [facility] [address] [place] [address] Dr. Bebeto Alvarado Creatinine [Mass/Vol] 0.95 mg/dL Normal 0.55-1.02 [facility] Comment on above: Performed By: #### C MP, LIPID #### [facility] [address] [place] [address] Dr. Bebeto Alvarado EGFR-AF ETHIOPIAN >60 Normal >=60 [facility] Comment on above: Performed By: #### C MP, LIPID #### [facility] [address] [address] [address] Bebeto Alvarado EGFR-NON AF ETHIOPIAN 60 mL/min/1.73m2 Normal >=60 [facility] Comment on above: Performed By: #### C MP, LIPID #### [facility] [address] [place] [address] Dr. Bebeto Alvarado Globulin (S) [Mass/Vol] 3.9 g/dL Normal [facility] Comment on above: Performed By: #### C MP, LIPID #### [facility] [address] [place] [address] Dr. Bebeto Alvarado Glucose [Mass/Vol] 108 mg/dL Critically high 74-106 [facility] Comment on above: Performed By: #### C MP, LIPID #### [facility] [address] [place] [address] Dr. Bebeto Alvarado Potassium [Moles/Vol] 4.0 mmol/L Normal 3.5-5.1 [facility] Comment on above: Performed By: #### C MP, LIPID #### [facility] [address] [place] [address] Dr. Bebeto Alvarado Protein [Mass/Vol] 7.6 g/dL Normal 6.4-8.2 [facility] Comment on above: Performed By: #### C MP, LIPID #### [facility] [address] [place] [address] Dr. Bebeto Alvarado Sodium [Moles/Vol] 143 mmol/L Normal 136-145 [facility] Comment on above: Performed By: #### C MP, LIPID #### [facility] [address] [place] [address] Dr. Bebeto Alvarado Urea nitrogen [Mass/Vol] 15.0 mg/dL Normal 7.0-18.0 [facility] Comment on above: Performed By: #### C MP, LIPID #### [facility] [address] [place] [address] Dr. Bebeto Alvarado Urea nitrogen/Creatinine [Mass ratio] 15.8 mg/mg Normal [facility] Comment on above: Performed By: #### C MP, LIPID #### [facility] [address] [place] [address] Dr. Bebeto Alvarado UA RANDOM W/MICROSCOPICon BACTERIA NONE SEEN Normal NONE SEEN [facility] Comment on above: Performed By: #### A 1C #### [facility] [address] [place] [address] Dr. Bebeto Alvarado Bilirubin Ql (U) Negative Normal NEGATIVE [facility] Comment on above: Performed By: #### A 1C #### [facility] [address] [place] [address] Dr. Bebeto Alvarado CAST NONE SEEN Normal NONE SEEN [facility] Comment on above: Performed By: #### A 1C #### [facility] [address] [place] [address] Dr. Bebeto Alvarado Clarity (U) CLEAR Normal CLEAR [facility] Comment on above: Performed By: #### A 1C #### [facility] [address] [place] [address] Dr. Bebeto Alvarado Color (U) YELLOW Normal YELLOW [facility] Comment on above: Performed By: #### A 1C #### [facility] [address] [place] [address] Dr. Bebeto Alvarado Crystals LM Nom (Urine sed) NONE SEEN Normal NONE SEEN [facility] Comment on above: Performed By: #### A 1C #### [facility] [address] [place] [address] Dr. Bebeto Alvarado Epithelial cells LM Ql (Urine sed) NONE SEEN Normal NONE SEEN /RARE [facility] Comment on above: Performed By: #### A 1C #### [facility] [address] [place] [address] Dr. Bebeto Alvarado Glucose Ql (U) Negative Normal NEGATIVE [facility] Comment on above: Performed By: #### A 1C #### [facility] [address] [address] [address] Bebeto Alvarado Hemoglobin Ql (U) Negative Normal NEGATIVE [facility] Comment on above: Performed By: #### A 1C #### [facility] [address] [place] [address] Dr. Bebeto Alvarado Ketones Ql (U) Negative Normal NEGATIVE [facility] Comment on above: Performed By: #### A 1C #### [facility] [address] [place] [address] Dr. Bebeto Alvarado LEUKOCYTES Negative Normal NEGATIVE [facility] Comment on above: Performed By: #### A 1C #### [facility] [address] [place] [address] Dr. Bebeto Alvarado MUCOUS NONE SEEN Normal NONE SEEN [facility] Comment on above: Performed By: #### A 1C #### [facility] [address] [place] [address] Dr. Bebeto Alvarado Nitrite Ql (U) Negative Normal NEGATIVE [facility] Comment on above: Performed By: #### A 1C #### [facility] [address] [place] [address] Dr. Bebeto Alvarado pH (U) 5.5 [pH] Normal 5-9 [facility] Comment on above: Performed By: #### A 1C #### [facility] [address] [place] [address] Dr. Bebeto Alvarado RBC NONE SEEN Abnormal 0-2 [facility] Comment on above: Performed By: #### A 1C #### [facility] [address] [place] [address] Dr. Bebeto Alvarado SPEC GRAVITY 1.030 Abnormal 1.005-<=1.02 5 [facility] Comment on above: Performed By: #### A 1C #### [facility] [address] [place] [address] Dr. Bebeto Alvarado UA PROTEIN Negative Normal NEGATIVE/ TRACE [facility] Comment on above: Performed By: #### A 1C #### [facility] [address] [place] [address] Dr. Bebeto Alvarado Urobilinogen Qn (U) 0.2 {Katerin'U}/dL Normal 0.2 - 1. 0 [facility] Comment on above: Performed By: #### A 1C #### [facility] [address] [place] [address] Dr. Bebeto Alvarado WBC NONE SEEN Normal NONE SEEN [facility] Comment on above: Performed By: #### A 1C #### [facility] [address] [place] [address] Dr. Bebeto Alvarado VITAMIN B12on 07-25-2022 Cobalamin (Vitamin B12) [Mass/Vol] 1684.0 pg/mL Critically high 193.0-986.0 [facility] Comment on above: Performed By: #### V ITB12, IRON #### [facility] [address] [place] [address] Dr. Bebeto Alvarado PROF CHEM 8 (BAS METB)on Anion gap [Moles/Vol] 12.2 mmol/L Normal [facility] Comment on above: Performed By: #### B MP #### [facility] [address] [place] [address] Dr. Bebeto Alvarado Calcium [Mass/Vol] 8.9 mg/dL Normal 8.5-10.1 [facility] Comment on above: Performed By: #### B MP #### [facility] [address] [place] [address] Dr. Bebeto Alvarado Chloride [Moles/Vol] 105 mmol/L Normal 98-107 [facility] Comment on above: Performed By: #### B MP #### [facility] [address] [place] [address] Dr. Bebeto Alvarado CO2 [Moles/Vol] 29.6 mmol/L Normal 21.0-32.0 [facility] Comment on above: Performed By: #### B MP #### [facility] [address] [place] [address] Dr. Bebeto Alvarado Creatinine [Mass/Vol] 0.95 mg/dL Normal 0.55-1.02 [facility] Comment on above: Performed By: #### B MP #### [facility] [address] [address] [address] Bebeto Alvarado EGFR-AF ETHIOPIAN >60 Normal >=60 [facility] Comment on above: Performed By: #### B MP #### [facility] [address] [address] [address] Bebeto Alvarado EGFR-NON AF ETHIOPIAN 60 mL/min/1.73m2 Normal >=60 [facility] Comment on above: Performed By: #### B MP #### [facility] [address] [address] [address] Bebeto Alvarado Glucose [Mass/Vol] 101 mg/dL Normal 74-106 [facility] Comment on above: Performed By: #### B MP #### [facility] [address] [address] [address] Bebeto Alvarado Potassium [Moles/Vol] 3.8 mmol/L Normal 3.5-5.1 [facility] Comment on above: Performed By: #### B MP #### [facility] [address] [address] [address] Bebeto Alvarado Sodium [Moles/Vol] 143 mmol/L Normal 136-145 [facility] Comment on above: Performed By: #### B MP #### [facility] [address] [address] [address] Bebeto Alvarado Urea nitrogen [Mass/Vol] 16.0 mg/dL Normal 7.0-18.0 [facility] Comment on above: Performed By: #### B MP #### [facility] [address] [address] [address] Bebeto Alvarado Urea nitrogen/Creatinine [Mass ratio] 16.8 mg/mg Normal [facility] Comment on above: Performed By: #### B MP #### [facility] [address] [place] [address] Dr. Bebeto Alvarado CBC AUTO DIFFon 11-21-2021 BASO # 0.1 103/ul Normal 0.0-0.1 [facility] Comment on above: Performed By: #### A 1C #### [facility] [address] [place] [address] Dr. Bebeto Alvarado Basophils/100 WBC (Bld) 1.0 % Normal 0.2-2.0 [facility] Comment on above: Performed By: #### A 1C #### [facility] [address] [place] [address] Dr. Bebeto Alvarado EO # 0.2 103/ul Normal 0.0-0.7 [facility] Comment on above: Performed By: #### A 1C #### [facility] [address] [place] [address] Dr. Bebeto Alvarado Eosinophils/100 WBC (Bld) 3.3 % Normal 0.9-7.0 [facility] Comment on above: Performed By: #### A 1C #### [facility] [address] [place] [address] Dr. Bebeto Alvarado Erythrocyte distribution width (RBC) [Ratio] 13.8 % Normal 11.0-15.0 [facility] Comment on above: Performed By: #### A 1C #### [facility] [address] [place] [address] Dr. Bebeto Alvarado Hematocrit (Bld) [Volume fraction] 38.8 % Normal 36.0-48.0 [facility] Comment on above: Performed By: #### A 1C #### [facility] [address] [place] [address] Dr. Bebeto Alvarado Hemoglobin (Bld) [Mass/Vol] 12.5 g/dL Normal 12.0-16.0 [facility] Comment on above: Performed By: #### A 1C #### [facility] [address] [place] [address] Dr. Bebeto Alvarado IG # 0.02 10e3/ul Normal 0.00-0.03 [facility] Comment on above: Performed By: #### A 1C #### [facility] [address] [place] [address] Dr. Bebeto Alvarado IG % 0.3 % Normal 0.0-0.5 [facility] Comment on above: Performed By: #### A 1C #### [facility] [address] [place] [address] Dr. Bebeto Alvarado LYMPH # 1.9 103/ul Normal 1.2-3.8 [facility] Comment on above: Performed By: #### A 1C #### [facility] [address] [place] [address] Dr. Bebeto Alvarado Lymphocytes/100 WBC (Bld) 29.6 % Normal 20.5-60.0 [facility] Comment on above: Performed By: #### A 1C #### [facility] [address] [place] [address] Dr. Bebeto Alvarado MANUAL DIFF REQ NO Normal [facility] Comment on above: Performed By: #### A 1C #### [facility] [address] [place] [address] Dr. Bebeto Alvarado MCH (RBC) [Entitic mass] 28.0 pg Normal 26.7-34.0 [facility] Comment on above: Performed By: #### A 1C #### [facility] [address] [place] [address] Dr. Bebeto Alvarado MCHC (RBC) [Mass/Vol] 32.2 g/dL Normal 29.9-35.2 [facility] Comment on above: Performed By: #### A 1C #### [facility] [address] [place] [address] Dr. Bebeto Alvarado MCV (RBC) [Entitic vol] 86.8 fL Normal 81.0-99.0 [facility] Comment on above: Performed By: #### A 1C #### [facility] [address] [place] [address] Dr. Bebeto Alvarado MONO # 0.4 103/ul Normal 0.3-0.8 [facility] Comment on above: Performed By: #### A 1C #### [facility] [address] [place] [address] Dr. Bebeto Alvarado Monocytes/100 WBC (Bld) 5.7 % Normal 1.7-12.0 [facility] Comment on above: Performed By: #### A 1C #### [facility] [address] [address] [address] Bebeto Alvarado NEUT # 3.8 103/ul Normal 1.4-6.5 [facility] Comment on above: Performed By: #### A 1C #### [facility] [address] [address] [address] Bebeto Alvarado Neutrophils/100 WBC (Bld) 60.1 % Normal 43.0-75.0 [facility] Comment on above: Performed By: #### A 1C #### [facility] [address] [address] [address] Bebeto Alvarado Platelet mean volume (Bld) [Entitic vol] 11.0 fL Normal 9.5-13.5 [facility] Comment on above: Performed By: #### A 1C #### [facility] [address] [place] [address] Dr. Bebeto Alvarado PLT 264 103/ul Normal 150-450 [facility] Comment on above: Performed By: #### A 1C #### [facility] [address] [address] [address] Bebeto Alvarado RBC 4.47 106/ul Normal 4.20-5.40 [facility] Comment on above: Performed By: #### A 1C #### [facility] [address] [address] [address] Bebeto Alvarado WBC 6.3 103/ul Normal 4.0-11.0 [facility] Comment on above: Performed By: #### A 1C #### [facility] [address] [place] [address] Dr. Bebeto Alvarado GLYCOHEMOGLOBIN A1Con 2021 ADA RECOMMENDATION SEE BELOW Normal [facility] Comment on above: Result Comment: ADA RECOMMENDED LIMIT 4.0 - 6.0 ADA THERAPEUTIC TARGET < 7.0 ACTION SUGGESTED > 7.0 Performed By: #### A 1C #### [facility] [address] [place] [address] Dr. Bebeto Alvarado Glucose [Mass/Vol] 105 mg/dL Normal [facility] Comment on above: Performed By: #### A 1C #### [facility] [address] [place] [address] Dr. Bebeto Alvarado HbA1c (Bld) [Mass fraction] 5.3 % Normal 4.5-6.2 [facility] Comment on above: Performed By: #### A 1C #### [facility] [address] [place] [address] Dr. Bebeto Alvarado IRONon 11-21-2021 Iron [Mass/Vol] 59.0 ug/dL Normal 50.0-170.0 [facility] Comment on above: Performed By: #### A 1C #### [facility] [address] [place] [address] Dr. Bebeto Alvarado LIPID PROFILEon 11-21-2021 CHOL-HDL RATIO NORM SEE BELOW Normal [facility] Comment on above: Result Comment: 3.3 - 4.4 LOW RISK 4.4 - 7.1 AVERAGE RISK 7.1 - 11.0 MODERATE RISK >11.0 HIGH RISK Performed By: #### C MP, LIPID #### [facility] [address] [place] [address] Dr. Bebeto Alvarado Cholesterol [Mass/Vol] 139 mg/dL Normal <=200 [facility] Comment on above: Performed By: #### C MP, LIPID #### [facility] [address] [place] [address] Dr. Bebeto Alvarado Cholesterol in HDL [Mass/Vol] 35 mg/dL Critically low 40-60 [facility] Comment on above: Performed By: #### C MP, LIPID #### [facility] [address] [address] [address] Bebeto Alvarado Cholesterol in LDL [Mass/Vol] 69.6 mg/dL Normal [facility] Comment on above: Performed By: #### C MP, LIPID #### [facility] [address] [place] [address] Dr. Bebeto Alvarado Cholesterol.total/Chol esterol in HDL [Mass ratio] 4.0 {ratio} Normal [facility] Comment on above: Performed By: #### C MP, LIPID #### [facility] [address] [place] [address] Dr. Bebeto Alvarado HDL NORMAL > or = 60 mg/dl - LO W CARDIOVASCULAR RISK <40 mg/dl - HIGH CARDIOVASCULAR RISK Normal [facility] Comment on above: Performed By: #### C MP, LIPID #### [facility] [address] [address] [address] Bebeto Alvarado LDL CALC NORMAL SEE BELOW Normal [facility] Comment on above: Result Comment: <100 mg/dl OPTIMAL 100 - 129 mg/dl NEAR OR ABOVE OPTIMAL 130 - 159 mg/dl BORDERLINE HIGH 160 - 189 mg/dl HIGH >190 mg/dl VERY HIGH Performed By: #### C MP, LIPID #### [facility] [address] [address] [address] Bebeto Alvarado Triglyceride [Mass/Vol] 172 mg/dL Critically high <=150 [facility] Comment on above: Performed By: #### C MP, LIPID #### [facility] [address] [place] [address] Dr. Bebeto Alvarado VLDL CALC 34.4 mg/dL Normal [facility] Comment on above: Performed By: #### C MP, LIPID #### [facility] [address] [address] [address] Bebeto Alvarado PROF 14(COMP METB)on 022 Albumin [Mass/Vol] 3.8 g/dL Normal 3.4-5.0 [facility] Comment on above: Performed By: #### C MP, LIPID #### [facility] [address] [address] [address] Bebeto Alvarado Albumin/Globulin [Mass ratio] 1.1 {ratio} Normal [facility] Comment on above: Performed By: #### C MP, LIPID #### [facility] [address] [address] [address] Bebeto Alvarado ALP [Catalytic activity/Vol] 96 U/L Normal 46-116 [facility] Comment on above: Performed By: #### C MP, LIPID #### [facility] [address] [address] [address] Bebeto Alvarado ALT [Catalytic activity/Vol] 25 U/L Normal 14-59 [facility] Comment on above: Performed By: #### C MP, LIPID #### [facility] [address] [address] [address] Bebeto Alvarado Anion gap [Moles/Vol] 11.8 mmol/L Normal [facility] Comment on above: Performed By: #### C MP, LIPID #### [facility] [address] [address] [address] Bebeto Alvarado AST [Catalytic activity/Vol] 20 U/L Normal 15-37 [facility] Comment on above: Performed By: #### C MP, LIPID #### [facility] [address] [address] [address] Bebeto Alvarado Bilirubin [Mass/Vol] 0.4 mg/dL Normal 0.2-1.0 [facility] Comment on above: Performed By: #### C MP, LIPID #### [facility] [address] [place] [address] Dr. Bebeto Alvarado Calcium [Mass/Vol] 8.8 mg/dL Normal 8.5-10.1 [facility] Comment on above: Performed By: #### C MP, LIPID #### [facility] [address] [place] [address] Dr. Bebeto Alvarado Chloride [Moles/Vol] 106 mmol/L Normal 98-107 [facility] Comment on above: Performed By: #### C MP, LIPID #### [facility] [address] [place] [address] Dr. Bebeto Alvarado CO2 [Moles/Vol] 27.0 mmol/L Normal 21.0-32.0 [facility] Comment on above: Performed By: #### C MP, LIPID #### [facility] [address] [place] [address] Dr. Bebeto Alvarado Creatinine [Mass/Vol] 0.97 mg/dL Normal 0.55-1.02 [facility] Comment on above: Performed By: #### C MP, LIPID #### [facility] [address] [address] [address] Bebeto Alvarado EGFR-AF ETHIOPIAN >60 Normal >=60 [facility] Comment on above: Performed By: #### C MP, LIPID #### [facility] [address] [address] [address] Bebeto Alvarado EGFR-NON AF ETHIOPIAN 59 mL/min/1.73m2 Critically low >=60 [facility] Comment on above: Performed By: #### C MP, LIPID #### [facility] [address] [address] [address] Bebeto Alvarado Globulin (S) [Mass/Vol] 3.4 g/dL Normal [facility] Comment on above: Performed By: #### C MP, LIPID #### [facility] [address] [address] [address] Bebeto Alvarado Glucose [Mass/Vol] 103 mg/dL Normal 74-106 [facility] Comment on above: Performed By: #### C MP, LIPID #### [facility] [address] [address] [address] Bebeto Alvarado Potassium [Moles/Vol] 3.8 mmol/L Normal 3.5-5.1 [facility] Comment on above: Performed By: #### C MP, LIPID #### [facility] [address] [address] [address] Bebeto Alvarado Protein [Mass/Vol] 7.2 g/dL Normal 6.4-8.2 [facility] Comment on above: Performed By: #### C MP, LIPID #### [facility] [address] [address] [address] Bebeto Alvarado Sodium [Moles/Vol] 141 mmol/L Normal 136-145 [facility] Comment on above: Performed By: #### C MP, LIPID #### [facility] [address] [address] [address] Bebeto Alvarado Urea nitrogen [Mass/Vol] 11.0 mg/dL Normal 7.0-18.0 [facility] Comment on above: Performed By: #### C MP, LIPID #### [facility] [address] [address] [address] Bebeto Alvarado Urea nitrogen/Creatinine [Mass ratio] 11.3 mg/mg Normal [facility] Comment on above: Performed By: #### C MP, LIPID #### [facility] [address] [place] [address] Dr. Bebeto Alvarado URIC ACID SERUMon 11-21-2021 Urate [Mass/Vol] 7.3 mg/dL Critically high 2.6-6.0 [facility] Comment on above: Performed By: #### A 1C #### [facility] [address] [place] [address] Dr. Bebeto Alvarado VITAMIN B12on 11-21-2021 Cobalamin (Vitamin B12) [Mass/Vol] 2123.0 pg/mL Critically high 193.0-986.0 [facility] Comment on above: Performed By: #### A 1C #### [facility] [address] [place] [address] Dr. Bebeto Alvarado Physician Referralon 022 Physician Referral [id number] Normal [facility] KNEE RIGHT 1 OR 2 VWSon KNEE RIGHT 1 OR 2 VWS [facility] Department of Radiology [address] [place] [id number] ======== Patient Name: MICHELLE BE : [...] , Exam: KNEE RIGHT 1 OR 2 [facility] ======== KNEE RIGHT 1 OR 2 [...] Electronically signed by:Debra Del Cid. Transcribed by: [email or web address], User Resident: Electronically Signed by: DEBRA DEL CID @ 02/08/2019 11:16 AM Normal [facility] Comment on above: Order Comment: , Mabel ws (X-RAY, KNEE): Radiologic Protocol , Weight Bearing?: N , With or Without Brace/Cast/Collar: With , Views (X-RAY, KNEE): Radiologic Protocol , Weight Bearing?: N , With or Without Brace/Cast/Collar: With , , , Ordering Provider - AHSAN BINGHAM PA-C , KNEE RIGHT 1 OR 2 [facility] KNEE RIGHT 1 OR 2 S [facility] Department of Radiology [address] [place] [phone] ======== Patient Name: MICHELLE BE : 1960 Sex: F Age: Race: White Pt. Location: 84 Patient Status: Ordered Date: 12/07/2018 10:20:00 AM Completed Date: 12/07/2018 10:20 AM Requesting Provider: AHSAN BINGHAM Attending Provider: Report Copy To: Signs & Symptoms: S82.001A Unsp fracture of right patella, init for clos fx I10 History: [place] Comments: , , , Ordering Provider - [...] complications. Electronically signed by:Tomasz Stoll. Transcribed by: [email or web address], User Resident: Electronically Signed by: TOMASZ STOLL @ 12/07/2018 11:14 AM Normal [facility] Comment on above: Order Comment: , Vie ws (X-RAY, KNEE): Radiologic Protocol , Weight Bearing?: N , With or Without Brace/Cast/Collar: With , Views (X-RAY, KNEE): Radiologic Protocol , Weight Bearing?: N , With or Without Brace/Cast/Collar: With , , , Ordering Provider - AHSAN BINGHAM PA-C , KNEE RIGHT 1 OR 2 [facility] KNEE RIGHT 1 OR 2 [facility] Department of Radiology [address] [place] [phone] ======== Patient Name: MICHELLE BE : 1960 Sex: F Age: Race: White Pt. 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 Transcribed by: [email or web address], User Resident: Electronically Signed by: ANUP ELLISON @ 10/06/2018 02:48 PM Normal [facility] Comment on above: Order Comment: , Vie ws (X-RAY, KNEE): Radiologic Protocol , Weight Bearing?: N , With or Without Brace/Cast/Collar: With , Views (X-RAY, KNEE): Radiologic Protocol , Weight Bearing?: N , With or Without Brace/Cast/Collar: With , , , Ordering Provider - AHSAN BINGHAM PA-C , KNEE RIGHT 1 OR 2 [facility] 08-05 KNEE RIGHT 1 OR 2 [facility] Department of Radiology [address] [place] [phone] ======== Patient Name: MICHELLE BE : [...] effusion Electronically signed by:Anup Ellison. Transcribed by: [email or web address], User Resident: Electronically Signed by: ANUP ELLISON @ 08/26/2018 04:56 PM Normal [facility] Comment on above: Order Comment: , Mabel ws (X-RAY, KNEE): Radiologic Protocol , Weight Bearing?: N , With or Without Brace/Cast/Collar: With , Views (X-RAY, KNEE): Radiologic Protocol , Weight Bearing?: N , With or Without Brace/Cast/Collar: With , , , Ordering Provider - AHSAN BINGHAM PA-C , KNEE RIGHT 1 OR 2 Son 07-06 KNEE RIGHT 1 OR 2 S [facility] Department of Radiology [address] [place] [phone] ======== Patient Name: MICHELLE BE : [...] , Exam: KNEE RIGHT 1 OR 2 [facility] ======== KNEE RIGHT 1 OR 2 [...] compartment Electronically signed by:Anup Ellison. Transcribed by: [email or web address], User Resident: Electronically Signed by: ANUP ELLISON @ 07/29/2018 03:41 PM Normal [facility] Comment on above: Order Comment: , Vie ws (X-RAY, KNEE): Radiologic Protocol , Weight Bearing?: N , With or Without Brace/Cast/Collar: With , Views (X-RAY, KNEE): Radiologic Protocol , Weight Bearing?: N , With or Without Brace/Cast/Collar: With , , , Ordering Provider - AHSAN BINGHAM PA-C , KNEE RIGHT 3 [facility] 9 KNEE RIGHT 3 S [facility] Department of Radiology [address] [place] [phone] ======== Patient Name: MICHELLE BE : [...] knee Electronically signed by:Anup Ellison. Transcribed by: [email or web address], User Resident: Electronically Signed by: ANUP ELLISON @ 07/15/2018 03:31 PM Normal [facility] Comment on above: Order Comment: , Mabel ws (X-RAY, KNEE): Radiologic Protocol , Weight Bearing?: N , With or Without Brace/Cast/Collar: With , Views (X-RAY, KNEE): Radiologic Protocol , Weight Bearing?: N , With or Without Brace/Cast/Collar: With , , , Ordering Provider - AHSAN BINGHAM PA-C , Operative Reporton 9 Operative Report MR#: [id number] [facility] Pt. Name: Michelle Be Room #: [...] Duarte MD Date Trans: 07/03/2018 04:28 A/terry [id number] Normal [facility] *ANAEROBIC CULTUREon 019 *ANAEROBIC CULTURE Clinical Report: (D) Specimen/Source: SWAB/RT KNEE Collected: 07/02/2018 13:53 Status: Final Last Updated: 07/07/2018 08:02 CULT RES (Final) No Anaerobes Isolated 5 Days Normal [facility] Comment on above: Performed By: #### 3 0312 #### [address] *WOUND CULTUREon 07-02-2018 *WOUND CULTURE Clinical Report: (D) Specimen/Source: WOUND/INTRAOP SPEC Collected: 07/02/2018 13:53 Status: Final Last Updated: 07/07/2018 10:13 (1) #1 RT KNEE GRAM (Final) Rare Polys No Bacteria Seen CULT RES (Final) No Growth Day 5 Normal [facility] Comment on above: Order Comment: #1 RT KNEE Performed By: #### 3 0343 #### [address] KNEE RIGHT 1 OR 2 [facility] 06-05 KNEE RIGHT 1 OR 2 S [facility] Department of Radiology [address] [place] [phone] ======== Patient Name: MICHELLE BE : [...] Electronically signed by:Debra Del Cid. Transcribed by: [email or web address], User Resident: Electronically Signed by: DEBRA DEL CID @ 07/02/2018 02:03 PM Normal [facility] Comment on above: Order Comment: ORIF VS PERCUTANEOUS FIXATION RIGHT PATELLA POC GLUCOSE LABon 07-02-2018 Glucose [Mass/Vol] 108 mg/dL High 70-100 [facility] Comment on above: Performed By: #### 8 5499 #### [facility] [address] [facility] [address], [facility] APTTon 06-30-2018 aPTT Coag (Bld) [Time] 30.6 s Normal 25.0-35.0 Th e [facility] Comment on above: Result Comment: ALL [...] THIS PURPOSE. Performed By: #### 5 6101, [id number] #### [facility] [address] [place] [address], [facility] BASIC METABOLIC PANELon 06-05 Calcium [Mass/Vol] 9.7 mg/dL Normal 8.6-10.3 [facility] Comment on above: Performed By: #### 0 0071 #### [facility] [address] [place] [address], [facility] Chloride [Moles/Vol] 102 mmol/L Normal 98-107 [facility] Comment on above: Performed By: #### 0 0071 #### [facility] [address] [place] [address], [facility] CO2 [Moles/Vol] 28 mmol/L Normal 21-31 [facility] Comment on above: Performed By: #### 0 0071 #### [facility] [address] [place] [address], [place] Creatinine [Mass/Vol] 1.20 mg/dL Normal 0.60-1.20 [facility] Comment on above: Performed By: #### 0 0071 #### [facility] [address] [place] [address], [place] GFR/1.73 sq M predicted among blacks MDRD (S/P/Bld) [Vol rate/Area] 56 ml/min/1.73sq m Abnormal >60 [facility] Comment on above: Performed By: #### 0 0071 #### [facility] [address] [place] [address], [place] GFR/1.73 sq M predicted among non-blacks MDRD (S/P/Bld) [Vol rate/Area] 47 ml/min/1.73sq m Abnormal >60 [facility] Comment on above: Performed By: #### 0 0071 #### [facility] [address] [place] [address], [place] Glucose [Mass/Vol] 97 mg/dL Normal 70-100 [facility] Comment on above: Performed By: #### 0 0071 #### [facility] [address] [place] [address], [place] Potassium [Moles/Vol] 4.1 mmol/L Normal 3.5-5.1 [facility] Comment on above: Performed By: #### 0 0071 #### [facility] [address] [place] [address], [place] Sodium [Moles/Vol] 137 mmol/L Normal 136-145 [facility] Comment on above: Performed By: #### 0 0071 #### [facility] [address] [place] [address], [place] Urea nitrogen [Mass/Vol] 19 mg/dL Normal 7-25 [facility] Comment on above: Performed By: #### 0 0071 #### [facility] [address] CBC W/DIFFon 06-30-2018 ABS BASOPHILS 0.1 10*3/uL Normal 0.0-0.2 [facility] Comment on above: Performed By: #### 5 0103 #### [facility] [address] ABS IMM GRANS 0.0 10*3/uL Normal 0.0-0.2 [facility] Comment on above: Performed By: #### 5 0103 #### [facility] [address] ABS NEUTROPHILS 6.4 10*3/uL Normal 1.6-7.6 [facility] Comment on above: Performed By: #### 5 0103 #### [facility] [address] Basophils/100 WBC (Bld) 0.7 % Normal 0.0-1.0 [facility] Comment on above: Performed By: #### 5 3 #### [facility] [address] Eosinophils (Bld) [#/Vol] 0.2 10*3/uL Normal 0.0-0.5 [facility] Comment on above: Performed By: #### 5 3 #### [facility] [address] [place] [address], [facility] Eosinophils/100 WBC (Bld) 1.5 % Normal 0.0-6.0 [facility] Comment on above: Performed By: #### 5 102 #### [facility] [address] [place] [address], [facility] Erythrocyte distribution width (RBC) [Ratio] 14.4 % Normal 11.5-15.0 [facility] Comment on above: Performed By: #### 5 0103 #### [facility] [address] [facility] Hematocrit (Bld) [Volume fraction] 40.6 % Normal 36.0-45.0 [facility] Comment on above: Performed By: #### 5 0103 #### [facility] [address] [facility]. [address] Hemoglobin (Bld) [Mass/Vol] 13.3 g/dL Normal 12.0-15.0 [facility] Comment on above: Performed By: #### 5 3 #### [facility] [address] IMMATURE GRANS 0.4 % Normal 0.0-1.0 [facility] Comment on above: Performed By: #### 5 3 #### [facility] [address] Lymphocytes (Bld) [#/Vol] 2.6 10*3/uL Normal 1.2-4.0 [facility] Comment on above: Performed By: #### 5 3 #### [facility] [address] Lymphocytes/100 WBC (Bld) 26.5 % Normal 20.0-45.0 [facility] Comment on above: Performed By: #### 5 3 #### [facility] [address] [facility]. [address] MCH (RBC) [Entitic mass] 27.4 pg Normal 27.0-33.0 [facility] Comment on above: Performed By: #### 5 3 #### [facility] [address] MCHC (RBC) [Mass/Vol] 32.8 g/dL Normal 32.0-35.0 [facility] Comment on above: Performed By: #### 5 102 #### [facility] [address] MCV (RBC) [Entitic vol] 83.5 fL Normal 82.0-98.0 [facility] Comment on above: Performed By: #### 102 #### [facility] [address] [place] [address], [facility] Monocytes (Bld) [#/Vol] 0.5 10*3/uL Normal 0.1-1.0 [facility] Comment on above: Performed By: #### 102 #### [facility] [address] MONOS 5.0 % Normal 5.0-12.0 [facility] Comment on above: Performed By: #### 102 #### [facility] [address] Neutrophils/100 WBC (Bld) 65.9 % Normal 40.0-72.0 [facility] Comment on above: Performed By: #### 102 #### [facility] [address] Nucleated RBC/100 WBC (Bld) [Ratio] 0 % Normal 0-0 [facility] Comment on above: Performed By: #### 5 102 #### [facility] [address] [place] [address], [facility] PLAT CNT 290 10*3/uL Normal 150-400 [facility] Comment on above: Performed By: #### 5 102 #### [facility] [address] [place] [address], [facility] RBC (Bld) [#/Vol] 4.86 10*6/uL Normal 3.80-5.00 [facility] Comment on above: Performed By: #### 102 #### [address] [place], [place] [id number] [place] [address] WBC (Bld) [#/Vol] 9.68 10*3/uL Normal 4.00-10.60 [facility] Comment on above: Performed By: #### 5 0103 #### [address] [address], [facility] KNEE RIGHT 1 OR 2 VWSon 06-05 KNEE RIGHT 1 OR 2 VWS [facility] Department of Radiology [address] [place] [id number] ======== Patient Name: MICHELLE BE : [...] Electronically signed by:Debra Del Cid. Transcribed by: [email or web address], User Resident: Electronically Signed by: DEBRA DEL CID @ 06/30/2018 11:52 AM Normal [facility] Comment on above: Order Comment: , Mabel ws (X-RAY, KNEE): Radiologic Protocol , Weight Bearing?: N , With or Without Brace/Cast/Collar: With , Views (X-RAY, KNEE): Radiologic Protocol , Weight Bearing?: N , With or Without Brace/Cast/Collar: With , , , Ordering Provider - AHSAN BINGHAM PA-C , PROTHROMBIN TIMEon 9 INR Coag (PPP) [Relative time] 0.98 {INR} Normal 0.91-1.16 [facility] Comment on above: Result Comment: [facility] P RECOMMENDED INR FOR WARFARIN [...] CHEST 1995;[id number]. Performed By: #### 5 6101, [id number] #### [address] PT Coag (PPP) [Time] 13.0 s Normal 12.3-14.8 [facility] Comment on above: Result Comment: ALL RESULTS MUST BE INTERPRETED WITH RESPECT TO BLOOD DRAWING ARTIFACT OR DILUTION ERROR OF ANTICOAGULANT AT THE TIME OF SAMPLING. Performed By: #### 5 6101, [id number] #### [address] KNEE RIGHT 3 [facility] 9 KNEE RIGHT 3 [facility] Department of Radiology [address] [place] [id number] ======== Patient Name: MICHELLE BE : [...] ZHANG PA-C , Exam: KNEE RIGHT 3 [facility] ======== KNEE RIGHT 3 [facility] 06/15/2018 1:34 PM EDT SIGNS AND [...] effusion Electronically signed by:Anup Ellison. Transcribed by: [email or web address], User Resident: Electronically Signed by: ANUP ELLISON @ 06/15/2018 03:50 PM Normal [facility] Comment on above: Order Comment: , Isaiah ght Bearing?: Y , Weight Bearing?: Y , , , Ordering Provider - AMPARO ZHANG PA-C , Vital Signs Date Time Vital Sign Value Performing Clinician Facility 11-18-2024 09:52-0400 Body height 162.6 cm Harrison Pocos DO Work Phone: [facility] 11-18-2024 09:52-0400 Body mass index (BMI) [Ratio] 47.55 kg/m2 Harrison Pocos DO Work Phone: [facility] 11-18-2024 09:52-0400 Body weight 125.65 kg Harrison Pocos DO Work Phone: [facility] 11-14-2024 10:16-0400 Body mass index (BMI) [Ratio] 47.62 kg/m2 Adelaida Aichholz HOT WORKER Work Phone: [facility] 11-14-2024 10:16-0400 Body temperature 97.81 [degF] Adelaida Aichholz HOT WORKER Work Phone: [facility] 11-14-2024 10:16-0400 Body weight 125.83 kg Adelaida Aichholz HOT WORKER Work Phone: [facility] 11-14-2024 10:16-0400 Diastolic blood pressure 84 mm[Hg] Adelaida Aichholz HOT WORKER Work Phone: [facility] 11-14-2024 10:16-0400 Heart rate 70 /min Adelaida Aichholz HOT WORKER Work Phone: [facility] 11-14-2024 10:16-0400 Respiratory rate 20 /min Adelaida Aichholz HOT WORKER Work Phone: [facility] 11-14-2024 10:16-0400 SaO2% (BldA) [Mass fraction] 98 % Adelaida Aichholz HOT WORKER Work Phone: [facility] 11-14-2024 10:16-0400 Systolic blood pressure 124 mm[Hg] Adelaida Aichholz HOT WORKER Work Phone: [facility] 10-27-2024 10:05-0400 Body height 162.6 cm Harrison Pocos DO Work Phone: [facility] 10-27-2024 10:05-0400 Body mass index (BMI) [Ratio] 47.55 kg/m2 Harrison Pocos DO Work Phone: [facility] 10-27-2024 10:05-0400 Body weight 125.65 kg Harrison Pocos DO Work Phone: [facility] 10-13-2024 08:42-0400 Body mass index (BMI) [Ratio] 48.75 kg/m2 Adelaida Kelsiez HOT WORKER Work Phone: [facility] 10-13-2024 08:42-0400 Body temperature 98.49 [degF] Adelaida Merryholz HOT WORKER Work Phone: [facility] 10-13-2024 08:42-0400 Body weight 128.82 kg Adelaida Kelsiez HOT WORKER Work Phone: [facility] 10-13-2024 08:42-0400 Diastolic blood pressure 80 mm[Hg] Adelaida Merryholz HOT WORKER Work Phone: [facility] 10-13-2024 08:42-0400 Heart rate 85 /min Adelaida Aichholz HOT WORKER Work Phone: [facility] 10-13-2024 08:42-0400 Respiratory rate 20 /min Adelaida Merryholz HOT WORKER Work Phone: [facility] 10-13-2024 08:42-0400 SaO2% (BldA) [Mass fraction] 95 % Adelaida Merryholz HOT WORKER Work Phone: [facility] 10-13-2024 08:42-0400 Systolic blood pressure 132 mm[Hg] Adelaida Yinghholz HOT WORKER Work Phone: [facility] 08-16-2024 11:25-0400 Body mass index (BMI) [Ratio] 48.23 kg/m2 Adelaida Merryholz HOT WORKER Work Phone: [facility] 08-16-2024 11:25-0400 Body temperature 98.49 [degF] Adelaida Merryholz HOT WORKER Work Phone: [facility] 08-16-2024 11:25-0400 Body weight 127.46 kg Adelaida Aichholz HOT WORKER Work Phone: [facility] 08-16-2024 11:25-0400 Diastolic blood pressure 82 mm[Hg] Adelaida Aichholz HOT WORKER Work Phone: [facility] 08-16-2024 11:25-0400 Heart rate 67 /min Adelaida Aichholz HOT WORKER Work Phone: [facility] 08-16-2024 11:25-0400 Respiratory rate 18 /min Adelaida Aichholz HOT WORKER Work Phone: [facility] 08-16-2024 11:25-0400 SaO2% (BldA) [Mass fraction] 97 % Adelaida Aichholz HOT WORKER Work Phone: [facility] 08-16-2024 11:25-0400 Systolic blood pressure 120 mm[Hg] Adelaida Aichholz HOT WORKER Work Phone: [facility] 07-27-2024 11:16-0400 Body mass index (BMI) [Ratio] 50.67 kg/m2 Adelaida Aichholz HOT WORKER Work Phone: [facility] 07-27-2024 11:16-0400 Body temperature 98.8 [degF] Adelaida Aichholz HOT WORKER Work Phone: [facility] 07-27-2024 11:16-0400 Body weight 133.9 kg Adelaida Aichholz HOT WORKER Work Phone: [facility] 07-27-2024 11:16-0400 Diastolic blood pressure 86 mm[Hg] Adelaida Aichholz HOT WORKER Work Phone: [facility] 07-27-2024 11:16-0400 Heart rate 82 /min Adelaida Aichholz HOT WORKER Work Phone: [facility] 07-27-2024 11:16-0400 Respiratory rate 24 /min Adelaida Aichholz HOT WORKER Work Phone: [facility] 07-27-2024 11:16-0400 SaO2% (BldA) [Mass fraction] 97 % Adelaida Carrion HOT WORKER Work Phone: [facility] 07-27-2024 11:16-0400 Systolic blood pressure 124 mm[Hg] Adelaida Carrion HOT WORKER Work Phone: [facility] 07-26-2024 10:48-0400 Body height 162.6 cm Juany Lowe PA Work Phone: [facility] 07-26-2024 10:48-0400 Body mass index (BMI) [Ratio] 50.98 kg/m2 Juany Lowe PA Work Phone: [facility] 07-26-2024 10:48-0400 Body weight 134.72 kg Juany Lowe PA Work Phone: [facility] 07-26-2024 10:48-0400 Diastolic blood pressure 84 mm[Hg] Juany Lowe PA Work Phone: [facility] 07-26-2024 10:48-0400 Systolic blood pressure 126 mm[Hg] Juany Lowe PA Work Phone: [facility] 05-24-2024 08:19-0500 Body height 162.6 cm Juany Lowe PA Work Phone: [facility] 05-24-2024 08:19-0500 Body mass index (BMI) [Ratio] 50.29 kg/m2 Juany Lowe PA Work Phone: [facility] 05-24-2024 08:19-0500 Body weight 132.9 kg Juany Lowe PA Work Phone: [facility] 05-24-2024 08:19-0500 Diastolic blood pressure 72 mm[Hg] Juany Lowe PA Work Phone: [facility] 05-24-2024 08:19-0500 Heart rate 62 /min Juany Lowe PA Work Phone: [facility] 05-24-2024 08:19-0500 Respiratory rate 16 /min Juany Kirbye PA Work Phone: [facility] 05-24-2024 08:19-0500 SaO2% (BldA) [Mass fraction] 100 % Juany Kirbye PA Work Phone: [facility] 05-24-2024 08:19-0500 Systolic blood pressure 110 mm[Hg] Juany Kirbye PA Work Phone: [facility] 05-12-2024 10:04-0500 Body height 162.6 cm Adelaida Aichholz HOT WORKER Work Phone: [facility] 05-12-2024 10:04-0500 Body mass index (BMI) [Ratio] 49.16 kg/m2 Adelaida Aichholz HOT WORKER Work Phone: [facility] 05-12-2024 10:04-0500 Body temperature 98.49 [degF] Adelaida Aichholz HOT WORKER Work Phone: [facility] 05-12-2024 10:04-0500 Body weight 129.91 kg Adelaida Aichholz HOT WORKER Work Phone: [facility] 05-12-2024 10:04-0500 Diastolic blood pressure 78 mm[Hg] Adelaida Aichholz HOT WORKER Work Phone: [facility] 05-12-2024 10:04-0500 Heart rate 80 /min Adelaida Aichholz HOT WORKER Work Phone: [facility] 05-12-2024 10:04-0500 Respiratory rate 20 /min Adelaida Aichholz HOT WORKER Work Phone: [facility] 05-12-2024 10:04-0500 SaO2% (BldA) [Mass fraction] 98 % Adelaida Aichholz HOT WORKER Work Phone: [facility] 05-12-2024 10:04-0500 Systolic blood pressure 118 mm[Hg] Adelaida Aichholz HOT WORKER Work Phone: [facility] 03-16-2024 09:53-0500 Body height 162.6 cm Adelaida Yinghholz HOT WORKER Work Phone: [facility] 03-16-2024 09:53-0500 Body mass index (BMI) [Ratio] 48.41 kg/m2 Adelaida Aichholz HOT WORKER Work Phone: [facility] 03-16-2024 09:53-0500 Body temperature 98.01 [degF] Adelaida Yinghholz HOT WORKER Work Phone: [facility] 03-16-2024 09:53-0500 Body weight 127.91 kg Adelaida Aichholz HOT WORKER Work Phone: [facility] 03-16-2024 09:53-0500 Diastolic blood pressure 80 mm[Hg] Adelaida Yinghholz HOT WORKER Work Phone: [facility] 03-16-2024 09:53-0500 Heart rate 79 /min Adelaida Yinghholz HOT WORKER Work Phone: [facility] 03-16-2024 09:53-0500 Respiratory rate 18 /min Adelaida Aichholz HOT WORKER Work Phone: [facility] 03-16-2024 09:53-0500 SaO2% (BldA) [Mass fraction] 98 % Adelaida Yinghholz HOT WORKER Work Phone: [facility] 03-16-2024 09:53-0500 Systolic blood pressure 120 mm[Hg] Adelaida Yinghholz HOT WORKER Work Phone: [facility] 03-10-2024 15:20-0500 Body height 162.6 cm Rachel REDDY Work Phone: [facility] 03-10-2024 15:20-0500 Body mass index (BMI) [Ratio] 48.41 kg/m2 Rachel REDDY Work Phone: [facility] 03-10-2024 15:20-0500 Body weight 127.91 kg Rachel REDDY Work Phone: [facility] 03-10-2024 15:20-0500 Diastolic blood pressure 68 mm[Hg] Rachel Sahni PA Work Phone: [facility] 03-10-2024 15:20-0500 Heart rate 74 /min Rachel Sahni PA Work Phone: [facility] 03-10-2024 15:20-0500 Respiratory rate 16 /min Rachel Sahni PA Work Phone: [facility] 03-10-2024 15:20-0500 SaO2% (BldA) [Mass fraction] 98 % Rachel Stephen PA Work Phone: [facility] 03-10-2024 15:20-0500 Systolic blood pressure 102 mm[Hg] Rachel Sahni PA Work Phone: [facility] 03-01-2024 12:48-0500 Body height 162.6 cm Juany Lowe PA Work Phone: [facility] 03-01-2024 12:48-0500 Body mass index (BMI) [Ratio] 48.92 kg/m2 Juany Lowe PA Work Phone: [facility] 03-01-2024 12:48-0500 Body weight 129.28 kg Juany Lowe PA Work Phone: [facility] 03-01-2024 12:48-0500 Diastolic blood pressure 88 mm[Hg] Juany Lowe PA Work Phone: [facility] 03-01-2024 12:48-0500 Systolic blood pressure 140 mm[Hg] Juany Lowe PA Work Phone: [facility] 02-16-2024 11:18-0500 Body height 162.6 cm Adelaida Carrion HOT WORKER Work Phone: [facility] 02-16-2024 11:18-0500 Body mass index (BMI) [Ratio] 50.77 kg/m2 Adelaida Carrion HOT WORKER Work Phone: [facility] 02-16-2024 11:18-0500 Body temperature 98.49 [degF] Adelaida Aichholz HOT WORKER Work Phone: [facility] 02-16-2024 11:18-0500 Body weight 134.17 kg Adelaida Aichholz HOT WORKER Work Phone: [facility] 02-16-2024 11:18-0500 Diastolic blood pressure 82 mm[Hg] Adelaida Aichholz HOT WORKER Work Phone: [facility] 02-16-2024 11:18-0500 Heart rate 69 /min Adelaida Aichholz HOT WORKER Work Phone: [facility] 02-16-2024 11:18-0500 Respiratory rate 20 /min Adelaida Aichholz HOT WORKER Work Phone: [facility] 02-16-2024 11:18-0500 SaO2% (BldA) [Mass fraction] 98 % Adelaida Aichholz HOT WORKER Work Phone: [facility] 02-16-2024 11:18-0500 Systolic blood pressure 122 mm[Hg] Adelaida Aichholz HOT WORKER Work Phone: [facility] 01-28-2024 13:46-0400 Body height 162.6 cm Adelaida Aichholz HOT WORKER Work Phone: [facility] 01-28-2024 13:46-0400 Body mass index (BMI) [Ratio] 48.99 kg/m2 Adelaida Aichholz HOT WORKER Work Phone: [facility] 01-28-2024 13:46-0400 Body temperature 98.71 [degF] Adelaida Aichholz HOT WORKER Work Phone: [facility] 01-28-2024 13:46-0400 Body weight 129.46 kg Adelaida Aichholz HOT WORKER Work Phone: [facility] 01-28-2024 13:46-0400 Diastolic blood pressure 78 mm[Hg] Adelaida Aichholz HOT WORKER Work Phone: [facility] 01-28-2024 13:46-0400 Heart rate 81 /min Adelaida Aichholz HOT WORKER Work Phone: [facility] 01-28-2024 13:46-0400 Respiratory rate 18 /min Adelaida Merryholz HOT WORKER Work Phone: [facility] 01-28-2024 13:46-0400 SaO2% (BldA) [Mass fraction] 99 % Adelaida Yinghholz HOT WORKER Work Phone: [facility] 01-28-2024 13:46-0400 Systolic blood pressure 110 mm[Hg] Adelaida Yinghholz HOT WORKER Work Phone: [facility] 01-04-2024 09:39-0400 Body height 162.6 cm Adelaida Yinghholz HOT WORKER Work Phone: [facility] 01-04-2024 09:39-0400 Body mass index (BMI) [Ratio] 48.75 kg/m2 Adelaida Yinghholz HOT WORKER Work Phone: [facility] 01-04-2024 09:39-0400 Body temperature 97.81 [degF] Adelaida Yinghholz HOT WORKER Work Phone: [facility] 01-04-2024 09:39-0400 Body weight 128.82 kg Adelaida Merryholz HOT WORKER Work Phone: [facility] 01-04-2024 09:39-0400 Diastolic blood pressure 78 mm[Hg] Adelaida Yinghholz HOT WORKER Work Phone: [facility] 01-04-2024 09:39-0400 Heart rate 67 /min Adelaida Yinghholz HOT WORKER Work Phone: [facility] 01-04-2024 09:39-0400 Respiratory rate 19 /min Adelaida Aichholz HOT WORKER Work Phone: [facility] 01-04-2024 09:39-0400 SaO2% (BldA) [Mass fraction] 99 % Adelaida Aichholz HOT WORKER Work Phone: [facility] 01-04-2024 09:39-0400 Systolic blood pressure 116 mm[Hg] Adelaida Sousabob HOT WORKER Work Phone: [facility] 12-09-2023 10:14-0400 Body height 162.6 cm Juany Caballero HOT WORKER Work Phone: [facility] 12-09-2023 10:14-0400 Body mass index (BMI) [Ratio] 48.92 kg/m2 Juany Singhmor HOT WORKER Work Phone: [facility] 12-09-2023 10:14-0400 Body weight 129.28 kg Juany Singhmor HOT WORKER Work Phone: [facility] 12-09-2023 10:14-0400 Diastolic blood pressure 78 mm[Hg] Juany Singhmor HOT WORKER Work Phone: [facility] 12-09-2023 10:14-0400 SaO2% (BldA) [Mass fraction] 97 % Juany Singhmor HOT WORKER Work Phone: [facility] 12-09-2023 10:14-0400 Systolic blood pressure 122 mm[Hg] Juany Singhmor HOT WORKER Work Phone: [facility] 12-08-2023 15:24-0400 Body height 162.6 cm Sonam Franzgel HOT WORKER Work Phone: [facility] 12-08-2023 15:24-0400 Body mass index (BMI) [Ratio] 48.92 kg/m2 Sonam Windnagel HOT WORKER Work Phone: [facility] 12-08-2023 15:24-0400 Body weight 129.28 kg Sonam Windnagel HOT WORKER Work Phone: [facility] 12-08-2023 15:24-0400 Diastolic blood pressure 77 mm[Hg] Sonam Windnagel HOT WORKER Work Phone: [facility] 12-08-2023 15:24-0400 Heart rate 72 /min Sonam Windnagel HOT WORKER Work Phone: [facility] 12-08-2023 15:24-0400 Systolic blood pressure 134 mm[Hg] Sonam Windnagel HOT WORKER Work Phone: [facility] 05-18-2023 16:30-0500 Body height 162.6 cm Adelaidamyrna Hesherineholz HOT WORKER Work Phone: [facility] 05-18-2023 16:30-0500 Body mass index (BMI) [Ratio] 47.89 kg/m2 Adelaida Aichholz HOT WORKER Work Phone: [facility] 05-18-2023 16:30-0500 Body temperature 97.3 [degF] Adelaida Aichholz HOT WORKER Work Phone: [facility] 05-18-2023 16:30-0500 Body weight 126.55 kg Adelaida Aichholz HOT WORKER Work Phone: [facility] 05-18-2023 16:30-0500 Diastolic blood pressure 80 mm[Hg] Adelaida Aichholz HOT WORKER Work Phone: [facility] 05-18-2023 16:30-0500 Heart rate 76 /min Adelaida Aichholz HOT WORKER Work Phone: [facility] 05-18-2023 16:30-0500 Respiratory rate 19 /min Adelaida Aichholz HOT WORKER Work Phone: [facility] 05-18-2023 16:30-0500 SaO2% (BldA) [Mass fraction] 97 % Adelaida Aichholz HOT WORKER Work Phone: [facility] 05-18-2023 16:30-0500 Systolic blood pressure 134 mm[Hg] Adelaida Aichholz HOT WORKER Work Phone: [facility] 03-23-2023 12:10-0500 Diastolic blood pressure 98 mm[Hg] Adelaida Aichholz Work Phone: [facility] 03-23-2023 12:10-0500 Heart rate 76 /min Adelaida Aichholz Work Phone: [facility] 03-23-2023 12:10-0500 Respiratory rate 18 /min Adelaida Aichholz Work Phone: [facility] 03-23-2023 12:10-0500 SaO2% (BldA) [Mass fraction] 99 % Adelaida Carrion Work Phone: [facility] 03-23-2023 12:10-0500 Systolic blood pressure 162 mm[Hg] Adelaida Carrion Work Phone: [facility] 03-23-2023 10:53-0500 Body height 162.56 cm Adelaida Carrion Work Phone: [facility] 03-23-2023 10:53-0500 Body weight 125.64 kg Adelaida Carrion Work Phone: [facility] 12-19-2022 14:55-0400 Body height 162.56 cm Rosemary Vernonmond Other [employer] Other 12-19-2022 14:55-0400 Body mass index (BMI) [Ratio] 47.85 kg/m2 Rosemary Marita Other [employer] Other 12-19-2022 14:55-0400 Body temperature 97.8 [degF] Rosemary Vernonmond Other [employer] Other 12-19-2022 14:55-0400 Body weight 126.46 kg Rosemary Marita Other [employer] Other 12-19-2022 14:55-0400 Respiratory rate 20 /min Rosemary Marita Other [employer] Other 12-19-2022 14:55-0400 SaO2% (BldA) [Mass fraction] 95 % Rosemary Marita Other [employer] Other 11-20-2022 13:12-0400 Body temperature 97.7 [degF] Adelaida Aichholz Work Phone: [facility] 11-20-2022 13:12-0400 SaO2% (BldA) [Mass fraction] 96 % Adelaida Aichholz Work Phone: [facility] 11-20-2022 07:44-0400 Diastolic blood pressure 90 mm[Hg] Adelaida Aichholz Work Phone: [facility] 11-20-2022 07:44-0400 Heart rate 103 /min Adelaida Aichholz Work Phone: [facility] 11-20-2022 07:44-0400 Systolic blood pressure 152 mm[Hg] Adelaida Aichholz Work Phone: [facility] 11-19-2022 20:00-0400 Respiratory rate 18 /min Adelaida Aichholz Work Phone: [facility] 11-18-2022 15:18-0400 Body height 162.56 cm Adelaida Aichholz Work Phone: [facility] 11-17-2022 09:00-0400 Body weight 122.92 kg Adelaida Aichholz Work Phone: [facility] Encounters Encounter Date Encounter Type Care Provider Facility Start: 11-18-2024 End: 11-18-2024 Bamboo flowsheet Harrison Shea Pocos DO Work Phone: [facility] Start: 11-18-2024 End: 11-18-2024 Bamboo flowsheet Harrison Shea Pocos DO Work Phone: [facility] Start: 11-18-2024 End: 11-18-2024 Patient encounter procedure Harrison Shea Pocos DO Work Phone: [facility] Comment on above: Acute medial meniscu s tear of right knee, initial encounter (Primary Dx); Chronic pain of right knee; Morbid obesity ([facility] Primary osteoarthritis of right knee; Preoperative testing Start: 11-18-2024 End: 11-18-2024 Patient encounter status Harrison Shea Pocos DO Work Phone: [facility] Start: 11-18-2024 End: 11-18-2024 ambulatory HARRISON Shea POCOS Not Available Start: 11-17-2024 End: 11-17-2024 ambulatory HARRISON Shea POCOS Not Available Start: 11-14-2024 End: 11-14-2024 Bamboo flowsheet Adelaida Carrion HOT WORKER Work Phone: [facility] Start: 11-14-2024 End: 11-17-2024 Bamboo flowsheet Adelaida Carrion HOT WORKER Work Phone: [facility] CW [facility] Start: 11-14-2024 End: 11-17-2024 Clinisync Result Encounter Adelaida Carrion HOT WORKER Work Phone: [facility] External Department Unsolicited Start: 11-14-2024 End: 11-14-2024 Office outpatient visit 25 minutes Adelaida Carrion HOT WORKER Work Phone: [facility] Comment on above: Well woman exam with routine gynecological exam (Primary Dx); Morbid (severe) obesity due to excess calories ([facility] Primary hypertension ; Anemia, unspecified type; Bilateral lower extremity edema; Osteoporosis, unspecified osteoporosis type, unspecified pathological fracture presence ; Chronic kidney disease, stage 3a ([facility]); Pre-diabetes Start: 11-14-2024 End: 11-14-2024 Patient encounter procedure Adelaida Carrion HOT WORKER Work Phone: [facility] Healthcare Start: 11-14-2024 End: 11-14-2024 ambulatory ADELAIDA CARRION Not Available Start: 11-08-2024 ambulatory Eduardo Monk Facility:[facility] Start: 10-27-2024 End: 10-27-2024 Patient encounter procedure Harrison Shea Pocos DO Work Phone: [facility] Comment on above: Right knee pain, uns pecified chronicity (Primary Dx); Primary osteoarthritis of right knee; Morbid obesity ([facility]-HCC) Start: 10-27-2024 End: 10-27-2024 ambulatory MICHEL POCOS Not Available Start: 10-27-2024 End: 10-27-2024 ambulatory MICHEL POCOS Not Available Start: 10-13-2024 End: 10-13-2024 Bamboo flowsheet Adelaida Carrion HOT WORKER Work Phone: [facility] Start: 10-13-2024 End: 10-13-2024 Bamboo flowsheet Adelaida Carrion HOT WORKER Work Phone: [facility] Start: 10-13-2024 End: 10-13-2024 Office outpatient visit 25 minutes Adelaida Carrion HOT WORKER Work Phone: [facility] Comment [...] 10-10-2024 End: 10-10-2024 ambulatory Syeda Mancuso MD Facility:[facility] Start: 10-08-2024 End: 10-09-2024 Emergency department patient visit ADELAIDA CARRION [facility] Start: 09-29-2024 End: 09-29-2024 [...] 09-19-2024 End: 09-19-2024 ambulatory [facility] Start: 08-16-2024 End: 08-16-2024 Bamboo flowsheet Adelaida Carrion HOT WORKER Work Phone: [facility] Start: 08-16-2024 End: 08-16-2024 Bamboo flowsheet Adelaida Carrion HOT WORKER Work Phone: [facility] Start: 08-16-2024 End: 08-16-2024 Office outpatient visit 15 minutes Adelaida Carrion HOT WORKER Work Phone: [facility] Comment on [...] 08-08-2024 ambulatory Syeda Mancuso MD Facility:[facility] Start: 07-27-2024 End: 07-27-2024 Bamboo flowsheet Adelaida Carrion HOT WORKER Work Phone: [facility] Start: 07-27-2024 End: 07-27-2024 Bamboo flowsheet Adelaida Carrion HOT WORKER Work Phone: [facility] Start: 07-27-2024 End: 07-27-2024 Office outpatient visit 15 minutes Adelaida Carrion HOT WORKER Work Phone: [facility] Comment on [...] Start: 06-14-2024 End: 06-14-2024 Refill Adelaida Aichholz HOT WORKER Work Phone: [facility] Comment on above: [...] 05-23-2024 End: 05-23-2024 ambulatory Syeda Mancuso MD Facility:[facility] Start: 05-12-2024 End: 05-12-2024 Bamboo flowsheet Adelaida Carrion HOT WORKER Work Phone: [facility] Start: 05-12-2024 End: 05-12-2024 Bamboo flowsheet Adelaida Carrion HOT WORKER [facility] Start: 05-12-2024 End: 05-12-2024 Office outpatient visit 25 minutes Adelaida Carrion HOT WORKER Work Phone: [facility] Comment on above: Primary hypertension [...] 05-09-2024 End: 05-09-2024 ambulatory [facility] Start: 04-12-2024 End: 04-12-2024 Refill Juany REDDY Work Phone: [facility] [address] Comment on above: Transient alteration of awareness (Primary Dx); Restless leg Start: 04-07-2024 End: 04-07-2024 Patient encounter procedure David Foster PhD Work Phone: [facility] Comment on above: Metabolic encephalop athy [...] 03-16-2024 End: 03-16-2024 Bamboo flowsheet Adelaida Carrion HOT WORKER Work Phone: [facility] Start: 03-16-2024 End: 03-16-2024 Bamboo flowsheet Adelaida Carrion HOT WORKER Work Phone: [facility] Start: 03-16-2024 End: 03-16-2024 Office outpatient visit 25 minutes Adelaida Carrion HOT WORKER Work Phone: [facility] Comment on above: Metabolic encephalop athy (Primary Dx); OSMANY (obstructive sleep apnea); Morbid obesity (CMS/HCC); Bilateral lower extremity edema; Tobacco dependence; Bipolar disorder with severe depression (CMS/HCC); At risk for polypharmacy; Anxiety; Primary hypertension ([facility]/HCC); Right bundle branch block (RBBB) determined by electrocardiography Start: 03-16-2024 End: 03-16-2024 ambulatory ADELAIDA SHEYLA Not Available Start: 03-15-2024 End: 03-16-2024 Telephone encounter David Norman MA [facility] Start: 03-14-2024 End: 03-14-2024 Bamboo flowsheet David Foster PhD Work Phone: [facility] Start: 03-14-2024 End: 03-14-2024 Bamboo flowsheet David Foster PhD Work Phone: [facility] Start: 03-14-2024 End: 03-14-2024 ambulatory DAVID [...] Evaluation and management of inpatient Adelaida Carrion Facility:[facility] Start: 03-02-2024 End: 03-04-2024 Clinisync Result Encounter Generic External Data Provider [facility] External Department Unsolicited Start: 03-02-2024 End: 03-04-2024 Clinisync Result Encounter Generic External Data Provider [facility] External Department Unsolicited Start: 03-02-2024 End: 03-02-2024 Refill Adelaida Carrion HOT WORKER Work Phone: [facility] Comment on above: Yeast infection of [...] Start: 02-28-2024 End: 02-29-2024 Refill Adelaida Sheyla HOT WORKER Work Phone: [facility] Comment on above: Allergic rhinitis, u nspecified Start: 02-24-2024 End: 02-24-2024 Refill Adelaida Sheyla HOT WORKER Work Phone: [facility] Comment on above: Essential (primary) hypertension (CMS/HCC); Allergic rhinitis, unspecified Start: 02-16-2024 End: 02-16-2024 Bamboo flowsheet Adelaida Carrion HOT WORKER Work Phone: [facility] Start: 02-16-2024 End: 02-23-2024 Clinisync Result Encounter Adelaida Carrion HOT WORKER Work Phone: [facility] External Department Unsolicited Start: 02-16-2024 End: 02-23-2024 Clinisync Result Encounter Adelaida Sheyla HOT WORKER Work Phone: [facility] External Department Unsolicited Start: 02-16-2024 End: 02-16-2024 Patient encounter procedure Adelaida Sheyla HOT WORKER Work Phone: [facility] Start: 02-16-2024 End: 02-16-2024 Periodic preventive med est patient 40-64yrs Adelaida Carrion HOT WORKER Work Phone: [facility] Comment on above: Well woman exam with routine gynecological exam (Primary Dx); Morbid obesity (CMS/HCC) Start: 02-16-2024 End: 02-16-2024 ambulatory ADELAIDA SHEYLA Not Available Start: 02-04-2024 End: 02-04-2024 Refill Sonam Brown HOT WORKER Work Phone: [facility] [address] Comment on above: Restless leg Start: 01-28-2024 End: 01-28-2024 Bamboo flowsheet Adelaida Carrion HOT WORKER Work Phone: [facility] Start: 01-28-2024 End: 01-28-2024 Bamboo flowsheet Adelaida Sheyla HOT WORKER Work Phone: [facility] Start: 01-28-2024 End: 01-28-2024 Office outpatient visit 15 minutes Adelaida Sheyla HOT WORKER Work Phone: [facility] Comment on above: Acute cystitis witho ut hematuria (Primary Dx); Tobacco dependence; Needs flu shot; Morbid obesity (CMS/HCC) Start: 01-28-2024 End: 01-28-2024 ambulatory ADELAIDA CARRION Not Available Start: 01-25-2024 End: 01-25-2024 ambulatory Syeda Mancuso MD Facility:[facility] Start: 01-21-2024 End: 01-25-2024 Clinisync Result Encounter Generic External Data Provider [facility] External Department Unsolicited Start: 01-21-2024 End: 01-25-2024 Clinisync Result Encounter Generic External Data Provider [facility] External Department Unsolicited Start: 01-05-2024 End: 01-05-2024 Clinisync Result Encounter Adelaida Carrion HOT WORKER Work Phone: [facility] External Department Unsolicited Start: 01-05-2024 End: 01-05-2024 Clinisync Result Encounter Adelaida Sheyla HOT WORKER Work Phone: [facility] External Department Unsolicited Start: 01-04-2024 End: 01-04-2024 Bamboo flowsheet Adelaida Carrion HOT WORKER Work Phone: [facility] Start: 01-04-2024 End: 01-04-2024 Bamboo flowsheet Adelaida Sheyla HOT WORKER Work Phone: [facility] Start: 01-04-2024 End: 01-04-2024 Office outpatient visit 25 minutes Adelaida Carrion HOT WORKER Work Phone: [facility] Comment on above: Bilateral lower extr emity edema (Primary Dx); Essential (primary) hypertension (CMS/HCC); Allergic rhinitis, unspecified; OSMANY (obstructive sleep apnea); Primary hypertension (CMS/HCC); Morbid obesity (CMS/HCC) Start: 01-04-2024 End: 01-04-2024 ambulatory ADELAIDA AICHHOLZ Not Available Start: 12-30-2023 End: 12-30-2023 Refill Adelaida Aichholz HOT WORKER Work Phone: [facility] Comment on above: Lower extremity elis a Start: 12-09-2023 End: 12-09-2023 Office outpatient visit 25 minutes Juany Caballero HOT WORKER Work Phone: [facility] Comment on above: OSMANY (obstructive sle ep apnea) (Primary Dx); Restless leg Start: 12-09-2023 End: 12-09-2023 ambulatory JUANY CABALLERO Not Available Start: 12-08-2023 End: 12-08-2023 ambulatory SONAM Keiry BROWN Not Available Start: 12-08-2023 End: 12-08-2023 Office outpatient visit 25 minutes Sonam Keiry Brown HOT WORKER Work Phone: [facility] [employer] [facility] Comment on above: 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CMS /HCC) (Primary Dx); Restless leg; Metabolic encephalopathy Start: 12-08-2023 End: 12-08-2023 Bamboo flowsheet Sonam C Clevelandnagel HOT WORKER Work Phone: [facility] [employer] [address] Start: 12-08-2023 End: 12-08-2023 Bamboo flowsheet Sonam C Clevelandn[place]el HOT WORKER Work Phone: [facility] [employer] [facility] Start: 11-27-2023 End: 11-27-2023 Refill Adelaida Aichholz HOT WORKER Work Phone: [facility] Comment on above: Yeast infection of t he skin (Primary Dx) Start: 05-21-2023 Refill Adelaida Aichholz HOT WORKER Work Phone: [facility] Comment on above: Acute cystitis with hematuria (Primary Dx) Start: 05-18-2023 End: 05-18-2023 Office outpatient visit 25 minutes Adelaida Aichserineholz HOT WORKER Work Phone: [facility] Comment on above: Encounter for annual wellness visit (AWV) in Medicare patient (Primary Dx); OSMANY (obstructive sleep apnea); Chronic pain disorder; Gastroesophageal reflux disease, unspecified whether esophagitis present; Overactive bladder; Lower extremity edema; Pre-diabetes; Morbid obesity ([facility]); Yeast infection of the skin; Tobacco dependence; Mood disorder ([facility]); Primary hypertension ([facility]); Left hip pain; Open wound of anterior abdominal wall, initial encounter Start: 05-18-2023 Bamboo flowsheet Adelaida Carrion NP Work Phone: [facility] Start: 05-18-2023 Bamboo flowsheet Adelaida Carrion NP Work Phone: [facility] Start: 05-18-2023 End: 05-18-2023 Patient encounter procedure Aedlaida Carrion NP Work Phone: [facility] Start: 03-23-2023 End: 03-23-2023 Admission to same day surgery center Adelaida Carrion Work Phone: [facility] Work Phone: Start: 03-23-2023 End: 03-23-2023 ambulatory Adelaida Carrion Work Phone: [facility] Work Phone: Start: 02-12-2023 End: 02-12-2023 ambulatory Jace Graham Other [employer] Other Start: 02-12-2023 Telephone encounter Jace Haney Buckle Assembler Start: 12-19-2022 End: 12-19-2022 ambulatory Rosemary Kirkland Other [employer] Other Start: 12-19-2022 Office outpatient ne w 10 minutes Rosemary Kirkland [facility] José Miguel Start: 11-17-2022 End: 11-20-2022 Evaluation and management of inpatient Adelaida Sheyla Work Phone: [facility] Work Phone: Start: 09-04-2022 ambulatory ARIAN Banegas Facili ty:H1 Start: 08-26-2022 ambulatory NARENDRANATH LAKSHMIPATHY . Facility:H1 Start: 08-08-2022 End: 08-09-2022 ambulatory BEER COOLER ADELAIDA SHEYLA Facility:H1 Start: 07-25-2022 End: 07-26-2022 ambulatory BEER COOLER ADELAIDA SHEYLA Facility:H1 Start: 07-15-2022 End: 07-15-2022 ambulatory NARENDRANATH LAKSHMIPATHY . Facility:H1 Start: 07-11-2022 ambulatory NARENDRANATH LAKSHMIPATHY . Facility:H1 Start: 06-26-2022 End: 06-27-[address] FINA NIXON . Facility:H1 Start: 06-11-2022 ambulatory BEER COOLER ADELAIDA SHEYLA Facil ity:H1 Start: 05-21-2022 End: 06-11-2022 ambulatory BEER COOLER ADELAIDA SHEYLA Facility:H1 Start: 05-08-2022 End: 05-09-2022 ambulatory BEER COOLER ADELAIDA SHEYLA Facility:H1 Start: 04-28-2022 End: 04-28-2022 ambulatory BEER COOLER ADELAIDA SHEYLA Facility:H1 Start: 04-03-2022 End: 04-04-[address] FINA NIXON . Facility:H1 Start: 03-19-2022 End: 03-20-2022 ambulatory BEER COOLER ADELAIDA SHEYLA Facility:H1 Start: 02-20-2022 End: 02-20-2022 ambulatory GILMER NEVES Facility:H1 Start: 01-10-2022 End: 02-12-2022 ambulatory BRIDGETTE MACEDO Facility:H1 Start: 01-02-2022 End: 01-03-[address] FINA NIXON . Facility:H1 Start: 01-01-2022 End: 01-02-2022 ambulatory BRIDGETTE MACEDO Facility:H1 Start: 12-16-2021 End: 12-16-2021 ambulatory BEER COOLER ADELAIDA SHEYLA Facility:H1 Start: 11-21-2021 End: 11-22-[address] DOCTOR BERGERON Facility:H1 Start: 10-03-2021 End: 10-04-[address] FINA NIXON . Facility:H1 Start: 09-19-[address] FINA NIXON . Faci lity:H1 Start: 09-12-2021 End: 09-12-2021 ambulatory BEER COOLER ADELAIDA CARRION Facility:H1 Start: 08-20-2021 End: 08-20-[address] FINA NIXON . Facility:H1 Start: 07-02-2018 End: 07-03-2018 Patient encounter procedure SUKI ESCALANTE Facility:[facility] C Procedures Date Procedure Procedure Detail Performing Clinician Start: 11-14-2024 IGP,APTIMA HPV,AGE GDLN Adelaida Carrion HOT WORKER Work Phone: Start: 10-27-2024 Radiologic examinati on knee 3 views Michel Pocos DO Work Phone: Start: 09-29-2024 Radex hips bilateral with pelvis 2 views Generic External Data Provider Start: 09-26-2024 CT LUNG SCREENING LOW DOSE Adelaida Carrion HOT WORKER Work Phone: Start: 09-26-2024 MM TOMOSYNTHESIS SCR EENING BI Adelaida Sheyla HOT WORKER Work Phone: Start: 09-26-2024 XR SHOULDER RT MIN 2V G eneric External Data Provider Start: 09-26-2024 Mammography Adelaida Jayden ramos HOT WORKER Work Phone: Start: 08-16-2024 Hemoglobin glycosylated a1c Adelaida Sheyla HOT WORKER Work Phone: Start: 03-02-2024 BLOOD CULTURE 1 Generic External Data Provider Start: 02-16-2024 IGP,APTIMA HPV,AGE GDLN Adelaida Carrion HOT WORKER Work Phone: Start: 01-28-2024 Urnls dip stick/tabl et rgnt non-auto w/o micrscp Adelaida Carrion HOT WORKER Work Phone: Start: 01-21-2024 MHPT CULT,URINE Generic External Data Provider Start: 01-05-2024 ALL BASIC METABOLIC PANEL Adelaida Carrion HOT WORKER Work Phone: Start: 09-18-2023 Mammography Adelaida Jayden ramos HOT WORKER Work Phone: Start: 03-23-2023 Screening colonoscopy L oneal Sheyla Work Phone: Start: 03-23-2023 Colonoscopy Adelaida Merrysherine rachel HOT WORKER Work Phone: Start: 09-15-2022 Mammography Adelaida Carpenter rachel HOT WORKER Work Phone: Start: 08-28-2022 Microscopic observat ion [Identifier] in Cervix by Cyto stain Adelaidamyrna Carrion HOT WORKER Work Phone: Start: 07-02-2018 ANESTH KNEE AREA SURGERY CHAPARRITA HENDRICKS Start: 07-02-2018 REMOVAL OF SUPPORT IMPLANT SUKI EBRAHEIM Start: 07-02-2018 TREAT KNEECAP FRACTURE SUKI EBRAHEIM Plan of Treatment Date Care Activity Detail Author Start: 03-23-2033 Screening for malign ant neoplasm of colon [facility] Start: 09-26-2025 Screening for malign ant neoplasm of breast Mammogram [facility] Start: 09-26-2025 Screening for malign ant neoplasm of lung Lung Cancer Screening Shared Decision Making [facility] Comment on above: Postponed from 12/05 (Other Medical Reasons) Start: 08-28-2025 Screening for malign ant neoplasm of cervix [facility] Start: 02-15-2025 Medicare Annual Well ness (AWV) Medicare Annual Wellness (AWV) [facility] Start: 02-13-2025 End: 02-13-2025 Patient encounter procedure 02/13/2025 9:40 AM EST Office Visit [facility] [address] [place] [address] Adelaida Carrion NP [address] [place] [phone] [facility] Start: 2024 Influenza vaccination Influenza Vacc ine (#1) [facility] Start: 11-18-2024 End: 11-18-2025 XR Chest 2 Views XR chest 2 views Imaging Routine Preoperative testing Expected: 11/18/2024 (Approximate), Expires: 11/18/2025 [facility] Work Phone: Comment on above: Expected: 11/18/2024 (Approximate), Expires: 11/18/2025 Start: 11-18-2024 End: 11-18-2024 [facility] Comment on above: Arrived Start: 11-17-2024 End: 11-17-2024 Professional / ancillary services management 11/17/2024 8:45 AM EDT Ancillary Procedure [facility] [address] [place] [id number] [facility] Start: 11-14-2024 End: 11-14-2025 25-hydroxyvitamin D3 [Mass/volume] in Serum or Plasma Vitamin D 25 hydroxy Lab Routine Chronic kidney disease, stage 3a ([facility]-HCC) Expected: 11/14/2024 (Approximate), Expires: 11/14/2025 [facility] Comment on above: Expected: 11/14/2024 (Approximate), Expires: 11/14/2025 Start: 11-14-2024 End: 11-14-2025 CBC W Auto Differential panel - Blood CBC and differential Lab Routine Anemia, unspecified type Expected: 11/14/2024 (Approximate), Expires: 11/14/2025 [facility] Comment on above: Expected: 11/14/2024 (Approximate), Expires: 11/14/2025 Start: 11-14-2024 End: 11-14-2025 Comprehensive metabolic 2000 panel - Serum or Plasma Comprehensive metabolic panel Lab Routine Primary hypertension Bilateral lower extremity edema Osteoporosis, unspecified osteoporosis type, unspecified pathological fracture presence Chronic kidney disease, stage 3a (CMS-HCC) Pre-diabetes Expected: 11/14/2024 (Approximate), Expires: 11/14/2025 [facility] Comment on above: Expected: 11/14/2024 (Approximate), Expires: 11/14/2025 Start: 11-14-2024 End: 11-14-2025 Lipid 1996 panel - Serum or Plasma Lipid panel Lab Routine Pre-diabetes Expected: 11/14/2024 (Approximate), Expires: 11/14/2025 [facility] Comment on above: Expected: 11/14/2024 (Approximate), Expires: 11/14/2025 Start: 11-14-2024 End: 11-14-2025 Microalbumin/Creatinine panel in random Urine Microalbumin / creatinine, urine ratio Lab Routine Primary hypertension Pre-diabetes Expected: 11/14/2024 (Approximate), Expires: 11/14/2025 [facility] Comment on above: Expected: 11/14/2024 (Approximate), Expires: 11/14/2025 Start: 11-14-2024 End: 11-14-2025 THIN PREP TIS PAP AND HR HPV DNA THIN PREP TIS PAP AND HR HPV DNA Pathology and Cytology Routine Well woman exam with routine gynecological exam Expected: 11/14/2024 (Approximate), Expires: 11/14/2025 [facility] Work Phone: Comment on above: Expected: 11/14/2024 (Approximate), Expires: 11/14/2025 Start: 11-14-2024 End: 11-14-2025 Urinalysis complete panel - Urine Urinalysis with reflex microscopic (clean catch) Lab Routine Primary hypertension Pre-diabetes Expected: 11/14/2024 (Approximate), Expires: 11/14/2025 [facility] Comment on above: Expected: 11/14/2024 (Approximate), Expires: 11/14/2025 Start: 11-14-2024 End: 11-14-2024 Patient encounter procedure [facility] Comment on above: Morbid (severe) obes ity due to excess calories ([facility]) (Primary Dx); Well woman exam with routine gynecological exam; Primary hypertension ; Anemia, unspecified type; Bilateral lower extremity edema; Osteoporosis, unspecified osteoporosis type, unspecified pathological fracture presence ; Chronic kidney disease, stage 3a ([facility]); Pre-diabetes Start: 10-13-2024 End: 10-13-2025 DXA Skeletal system Views for bone density DEXA bone density Imaging Routine Osteoporosis, unspecified osteoporosis type, unspecified pathological fracture presence Expected: 10/13/2024 (Approximate), Expires: 10/13/2025 [facility] Work Phone: Comment on above: Expected: 10/13/2024 (Approximate), Expires: 10/13/2025 Start: 10-13-2024 End: 10-13-2024 Patient encounter procedure 10/13/2024 9:00 AM EDT Office Visit [facility] [address] [place] [phone] Adelaida Carrion NP [address] [place] [address] Arrived [facility] Comment on above: Arrived Start: 09-22-2024 End: 09-22-2024 Patient encounter procedure 09/22/2024 11:00 AM EDT Office Visit [facility] [address] [place] [phone] Rachel Sahni PA [address] [place] [address] [facility] Start: 09-17-2024 Screening for malign ant neoplasm of breast Mammogram [facility] Start: 08-16-2024 End: 08-16-2025 CT Chest for screening WO contrast CT lung screening low dose Imaging Routine Former cigarette smoker Expected: 08/16/2024 (Approximate), Expires: 08/16/2025 [facility] Comment on above: Expected: 08/16/2024 (Approximate), Expires: 08/16/2025 Start: 08-16-2024 End: 10-16-2025 MG Breast - bilateral Screening Bilateral screening mammogram Imaging Routine Encounter for screening mammogram for malignant neoplasm of breast Expected: 08/16/2024 (Approximate), Expires: 10/16/2025 [facility] Work Phone: Comment on above: Expected: 08/16/2024 (Approximate), Expires: 10/16/2025 Start: 08-16-2024 End: 08-16-2024 [facility] Comment on above: Bronchitis (Primary Dx); Primary hypertension (CMS/HCC); Bilateral lower extremity edema; Morbid (severe) obesity due to excess calories (CMS/HCC); Pre-diabetes Start: 08-11-2024 End: 08-11-2024 Patient encounter procedure 08/11/2024 10:30 AM EDT Office Visit [facility] [address] [place] [phone] Adelaida Carrion NP [address] [place] [phone] [facility] Start: 07-27-2024 End: 07-27-2024 Patient encounter procedure 07/27/2024 11:30 AM EDT [facility] [address] [place] [phone] Adelaida Carrion NP [address] [place] [phone] Primary hypertension (CMS/HCC) (Primary Dx); Morbid (severe) obesity due to excess calories (CMS/HCC) [facility] Comment on above: Primary hypertension (CMS/HCC) (Primary Dx); Morbid (severe) obesity due to excess calories (CMS/HCC) Start: 07-26-2024 End: 07-26-2024 Patient encounter procedure [facility] Comment on above: Arrived Start: 06-22-2024 End: 06-22-2024 Patient encounter procedure 06/22/2024 11:20 AM EDT Office Visit [facility] [address] [place] [address] Juany Leggett PA [address] [place] [address] [facility] Start: 06-15-2024 End: 06-15-2024 Patient encounter procedure 06/15/2024 9:20 AM EDT Office Visit [facility] [address] [place] [address] Adelaida Carrion, BRIANA [address] [place] [address] [facility]ET[facility] MANDUJANO Start: 05-24-2024 End: 05-24-2024 Patient encounter procedure [facility] [facility] Comment on above: Arrived Start: 05-18-2024 Medicare Annual Well ness (AWV) Medicare Annual Wellness (AWV) [facility] Start: 05-12-2024 End: 05-12-2024 Patient encounter procedure [facility] Comment on above: Primary hypertension (CMS/HCC) (Primary Dx); Chronic kidney disease, stage 3a (HCC) (CMS/HCC); Morbid (severe) obesity due to excess calories (CMS/HCC); Body mass index (BMI) 45.0-49.9, adult (CMS/HCC); OSMANY (obstructive sleep apnea); Hemiparesis, right (CMS/HCC); Gastroesophageal reflux disease, unspecified whether esophagitis present; Metabolic encephalopathy Start: 04-07-2024 End: 04-07-2024 Patient encounter procedure 04/07/2024 12:30 PM EST Office Visit [facility] [address] [phone] [facility] Start: 04-04-2024 End: 04-04-2024 Patient encounter procedure 04/04/2024 1:20 PM EST Office Visit [facility] [address] [place] [address] Adelaida Carrion, BRIANA [address] [place] [address] [facility] Start: 03-22-2024 End: 03-22-2024 Clinical Support 03/22/2024 10:00 AM EST Clinical Support [facility] [facility] [address] [address] [place] [phone] [facility] Start: 03-16-2024 End: 03-16-2024 [facility] encounter procedure [facility] Comment on above: Metabolic encephalop athy (Primary Dx); OSMANY (obstructive sleep apnea); Morbid obesity (CMS/HCC); Bilateral lower extremity edema; Tobacco dependence; Bipolar disorder with severe depression (CMS/HCC); At risk for polypharmacy; Anxiety Start: 03-14-2024 End: 03-14-2024 Patient encounter procedure 03/14/2024 10:00 AM EST Office Visit [facility] [address] [address] [place] [phone] David Foster, PhD [address] [place], [place] [id number] [facility] Start: 03-11-2024 End: 03-11-2025 EEG 2 Hour Routine EEG 2 Hour Routine Neurology Routine Altered mental status, unspecified altered mental status type Expected: 03/11/2024 (Approximate), Expires: 03/11/2025 [facility] Work Phone: Comment on above: Expected: 03/11/2024 (Approximate), Expires: 03/11/2025 Start: 03-10-2024 End: 03-10-2024 Patient encounter procedure 03/10/2024 3:40 PM EST Office Visit [facility] [address] [place] [phone] Rachel Sahni PA [address] [place], [place] [phone] [facility] Start: 03-01-2024 End: 03-01-2024 Patient encounter procedure 03/01/2024 12:00 PM EST Office Visit [facility] [address] [place] [address] Juany Leggett PA [address] [place] [address] [facility] Start: 02-29-2024 End: 02-29-2024 Patient encounter procedure 02/29/2024 2:40 PM EST Office Visit [facility] [place] [facility] [address] [place] [address] Sonam Brown, HOT WORKER [address] [place] [address] [facility] [place] [facility] Start: 02-16-2024 End: [...] procedure 02/16/2024 11:30 AM EST [facility] [address] [place] [address] Adelaida Carrion NP [address] [place] [address] [facility] Start: 02-04-2024 Influenza vaccination Influenza Vacc ine (#1) [facility] Comment on above: Postponed from 12/05 (Patient Does Not Have Time) Start: 01-28-2024 End: 01-27-2025 URINARY TRACT INFECTION (HTRX) URINARY TRACT INFECTION (HTRX) Lab Routine Acute cystitis without hematuria Expected: 01/28/2024 (Approximate), Expires: 01/27/2025 [facility] Work Phone: Comment on above: Expected: 01/28/2024 (Approximate), Expires: 01/27/2025 Start: 01-28-2024 End: 01-28-2024 Patient encounter procedure [facility] Comment on above: Tobacco dependence ( [...] 12/09/2023 10:30 AM EDT Office Visit [facility] [address] [place] [address] Juany Caballero NP [address] [place], [place] [facility] Start: 12-08-2023 End: 12-08-2023 Patient encounter procedure 12/08/2023 3:20 PM EDT Office Visit [facility] [address] [place] [phone] Sonam Brown NP [address] [place] [address] [facility] Start: 09-16-2023 Screening for malign ant neoplasm of breast Mammogram [facility] Start: 08-17-2023 End: 08-17-2023 Patient encounter procedure 08/17/2023 9:20 AM EDT Office Visit [facility] [address] [place] [phone] Adelaida Carrion NP [address] [place] [phone] [facility] Start: 05-22-2023 End: 05-22-2023 Patient encounter procedure 05/22/2023 8:45 AM EST Office Visit [facility] [address] [place] [address] Travon Hines, PA [address] [place] [address] [facility] Start: 05-18-2023 End: 05-18-2023 Patient encounter procedure 05/18/2023 4:30 PM EST Office Visit [facility] [address] [place] [phone] Adelaida Carrion, HOT WORKER [address] [place] [address] Arrived [facility] Comment on above: Arrived Start: 05-18-2023 End: 05-18-2024 XR Hip - left 3 Views XR hip left 2 or 3 views Imaging Routine Left hip pain Expected: 05/18/2023 (Approximate), Expires: 05/18/2024 [facility] Work Phone: Comment on above: Expected: 05/18/2023 (Approximate), Expires: 05/18/2024 Start: 03-23-2023 [facility] Start: 11-20-2022 [facility] Start: 11-18-2022 Referral to clinical turnaround engineer [facility] Start: 11-17-2022 Hospital admission [facility] Start: 11-17-2022 [facility] Start: 12-06-1991 Screening for malign ant neoplasm of cervix HPV/Cotest [facility] Start: 1960 Medicare Annual Well ness (AWV) Medicare Annual Wellness (AWV) [facility] Start: 1961 Screening for malign ant neoplasm of colon [facility] Start: 1960 Screening for malign ant neoplasm of lung Lung Cancer Screening Shared Decision Making [facility] BLOOD CULTURE 1 BLOOD CULTURE 1 Lab Routine 03/02/2024 3:[address] [facility] Patient Education [facility] Work Phone: Patient referral [facility] Work Phone: XR Knee - right 3 Views XR knee 3 views right Imaging Routine Right knee pain, unspecified chronicity 10/27/2024 8:18 AM EDT [facility] Work Phone: [facility] Immunizations Immunization Date Immunization Notes Care Provider Parker stevens 01-28-2024 Influenza, injectabl e, Madin Nevaeh Canine Kidney, preservative free, quadrivalent Adelaida Aichholz HOT WORKER Work Phone: [facility] 01-28-2024 influenza virus vaccine, unspecified formulation Adelaida Aichholz HOT WORKER Work Phone: [facility] 08-17-2023 zoster vaccine recombinant Adelaida Aichholz HOT WORKER Work Phone: [facility] 02-13-2023 influenza, injectabl e, quadrivalent, preservative free Adelaida Aichholz HOT WORKER Work Phone: [facility] 02-13-2023 SARS-COV-2 (COVID-19 ) vaccine, mRNA, spike protein, LNP, PF, 50 mcg/0.5 mL Adelaida Aichholz HOT WORKER Work Phone: [facility] 02-13-2023 influenza virus vaccine, unspecified formulation Adelaida Aichholz HOT WORKER Work Phone: [facility] 02-19-2022 diphtheria, tetanus toxoids and pertussis vaccine Adelaida Aichholz HOT WORKER Work Phone: [facility] 03-02-2021 Moderna SARS-CoV-2 Vaccination Adelaida Aichholz HOT WORKER Work Phone: [facility] 08-24-2020 Moderna SARS-CoV-2 Vaccination Adelaida Aichholz HOT WORKER Work Phone: [facility] 07-27-2020 Moderna SARS-CoV-2 Vaccination Adelaida Aichholz HOT WORKER Work Phone: [facility] 05-28-2018 influenza, injectabl e, quadrivalent, preservative free Adelaida Aichholz Work Phone: [facility] 09-01-2018 pneumococcal conjuga te vaccine, 13 valent Adelaida Carrion NP Work Phone: [facility] Payers Date Payer Category Payer Medicare [id number] 2022 Self-pay [id number] 2022 Medicare [id number] 2022 Medicare (Managed Care) [facility]IC[facility] [id number] 2008 Unknown [id number] 1961 Unknown [id number] 2.16.840.1.616756.3.579.2 .647 1961 Unknown [id number] 2.16.840.1.471525.3.579.2 .593 1961 Unknown [id number] 2.16.840.1.500680.3.579.2 .593 1961 Unknown [id number] 2.16.840.1.160047.3.579.2 .593 1961 Unknown [id number] 2.16.840.1.853437.3.579.2 .593 1961 Unknown [id number] 2.16.840.1.342229.3.579.2 .593 1961 Unknown [id number] 2.16.840.1.293289.3.579.2 .593 1961 Unknown [id number] 2.16.840.1.613089.3.579.2 .593 1961 Unknown [id number] 2.16.840.1.990743.3.579.2 .593 1961 Unknown [id number] 2.16.840.1.659860.3.579.2 .593 1961 Unknown [id number] 2.16.840.1.148969.3.579.2 .593 1961 Unknown [id number] 2.16.840.1.346736.3.579.2 .593 1961 Unknown [id number] 2.16.840.1.264503.3.579.2 .593 1961 Unknown [id number] 2.16.840.1.108513.3.579.2 .593 1961 Unknown [id number] 2.16.840.1.774065.3.579.2 .593 1961 Unknown [id number] 2.16.840.1.756184.3.579.2 .593 1961 Unknown [id number] 2.16.840.1.073230.3.579.2 .593 1961 Unknown [id number] 2.16.840.1.593328.3.579.2 .593 1961 Unknown [id number] 2.16.840.1.552200.3.579.2 .593 1961 Unknown [id number] 2.16.840.1.840182.3.579.2 .593 1961 Unknown [id number] 2.16.840.1.587245.3.579.2 .593 1961 Unknown [id number] 2.16.840.1.365084.3.579.2 .593 1961 Unknown [id number] 2.16.840.1.462219.3.579.2 .593 1961 Unknown [id number] 2.16.840.1.474089.3.579.2 .593 1961 Unknown [id number] 2.16.840.1.064015.3.579.2 .593 1961 Unknown [id number] 2.16.840.1.967803.3.579.2 .1286 1961 Unknown [id number] 2.16.840.1.524431.3.579.2 .196 1961 Unknown [id number] 2.16.840.1.841903.3.579.2 .196 1961 Unknown [id number] 2.16.840.1.023079.3.579.2 .196 1961 Unknown [id number] 2.16.840.1.020459.3.579.2 .196 1961 Unknown [id number] 2.16.840.1.940415.3.579.2 .196 1961 Unknown [id number] 2.16.840.1.204410.3.579.2 .196 1961 Unknown [id number] 2.16.840.1.137362.3.579.2 .196 1961 Unknown [id number] 2.16.840.1.842318.3.579.2 .1259 1961 Unknown [id number] 2.16.840.1.626825.3.579.2 .1259 1961 Unknown [id number] 2.16.840.1.034999.3.579.2 .1259 1961 Unknown [id number] 2.16.840.1.253975.3.579.2 .1259 1961 Unknown [id number] 2.16.840.1.571916.3.579.2 .1258 1961 Unknown [id number] 2.16.840.1.190663.3.579.2 .1258 1961 Unknown [id number] 2.16.840.1.882028.3.579.2 .1258 1961 Unknown [id number] 2.16.840.1.359342.3.579.2 .1258 1961 Unknown [id number] 2.16.840.1.275984.3.579.2 .1258 1961 Unknown [id number] 2.16.840.1.913793.3.579.2 .1258 1961 Unknown [id number] 2.16.840.1.446182.3.579.2 .1258 1961 Unknown [id number] 2.16.840.1.814886.3.579.2 .1258 1961 Unknown [id number] 2.16.840.1.037953.3.579.2 .1258 1961 Unknown [id number] 2.16.840.1.090584.3.579.2 .1258 1961 Unknown [id number] 2.16.840.1.930860.3.579.2 .1258 1961 Unknown [id number] 2.16.840.1.266695.3.579.2 .1258 1961 Unknown [id number] 2.16.840.1.046992.3.579.2 .1258 1961 Unknown [id number] 2.16.840.1.753792.3.579.2 .1258 1961 Unknown [id number] 2.16.840.1.801839.3.579.2 .1258 1961 Unknown [id number] 2.16.840.1.072698.3.579.2 .1259 1961 Unknown [id number] 2.16.840.1.967631.3.579.2 .1259 1961 Unknown [id number] 2.16.840.1.119702.3.579.2 .1259 1959 Medicare [id number] 1959 Unknown [id number] Private Health Insurance [facility] [id number] Unknown [id number] 2.16.840.1.494866.3.579.2 .531 Unknown [id number] 2.16.840.1.217037.3.579.2 .531 Social History Date Type Detail Facility Start: 11-18-2022 End: 10-14-2023 Tobacco smoking status [facility] Ex-smoker (finding) [facility] Start: 1960 Sex Assigned At Female [facility] Start: 03-25-2023 End: 08-16-2023 Sex Assigned At [facility] Start: 04-06-1976 End: 04-06-2016 History of tobacco use Current smoker [facility] Start: 04-06-1976 End: 04-06-2016 History of tobacco use Cigarette Smoker [facility] Start: 02-09-2023 End: 08-16-2023 Cigarettes smoked current (pack per day) - Reported 1 [facility] Start: 02-09-2023 End: 10-14-2023 Tobacco use and exposure Smokeless tobacco non-user [facility] Start: 05-18-2023 End: 11-18-2024 Alcohol intake Lifetime non-drinker (finding) [facility] Start: 11-13-2022 Alcohol Comment caffeine intake: 1-[address] [facility] Start: 10-01-2022 Gender identity Identifies [...] 11-20-2022 Functional status Patient at Baseline [facility] Work Phone: Mental Status Date Assessment Result Facility 11-20-2022 Cognitive function Cognitive Sta tus Patient is Progressing Toward Baseline [facility] Work Phone: Clinical Notes 10-03-2021 to [...] S/P bariatric surgery Shingles Slurred speech Stroke ([facility]) 2018 Tenosynovitis, de [...] biotin 5 MG tablet Pt taking OTC (PrairieSmarts) Calcium Citrate-Vitamin D (CITRACAL + D PO) Pt taking OTC ithinksport) Cannabinoids (medical cannabis) 1 each carvedilol (COREG) [...] Daily Magnesium 400 MG capsule Pt taking OTCSeeo) Melatonin 12 MG tablet 1 tablet, Nightly Multiple Vitamins-Minerals (BARIATRIC MULTIVITAMINS/IRON PO) Pt taking OTC (PrairieSmarts) omeprazole (PRILOSEC) 20 mg, Oral, Daily before [...] 12:22 PM EDT documented in this encounter [facility] 11-14-2024 History of Present illness Narrative Images [...] biotin 5 MG tablet Pt taking OTC (PrairieSmarts) Calcium Citrate-Vitamin D (CITRACAL + D PO) Pt taking OTC (UVLrx Therapeutics) Cannabinoids (medical cannabis) 1 each carvedilol (COREG) [...] Daily Magnesium 400 MG capsule Pt taking OTC(Fliptop) Melatonin 12 MG tablet 1 tablet, Nightly Multiple Vitamins-Minerals (BARIATRIC MULTIVITAMINS/IRON PO) Pt taking OTC (PrairieSmarts) omeprazole (PRILOSEC) 20 mg, Oral, Daily before [...] Anxiety 05/18/2023 Bipolar disorder with severe depression ([facility]) 05/18/2023 Brain lesion Brain vascular malformation ([facility]) Chronic pain disorder Closed fracture of patella 02/04/2018 Colon polyps Constipation Degenerative cervical disc Degenerative lumbar disc Depression 05/18/2023 Diastolic dysfunction Dizziness 05/18/2023 Dysphagia Fibromyalgia Fibromyalgia Fibromyalgia, primary 2009 Gastrocnemius equinus GERD (gastroesophageal reflux disease) Heart murmur Hematoma of right breast Hemiparesis ([facility]) Hemiparesis, right ([facility]) Hemorrhoid int/external hemorrhoids Hiatal hernia Iron deficiency Left foot pain 03/25/2023 Lower extremity edema Memory loss 2009 Migraine 03/05/2024 Mood disorder mixed mood disorder OSMANY (obstructive sleep apnea) Osteoporosis Overactive bladder Pre-diabetes Primary hypertension 03/25/2023 PTSD (post-traumatic stress disorder) Restless leg Restless leg syndrome 1989 Right knee pain Right sided weakness S/P bariatric surgery Shingles Slurred speech Stroke ([facility]) 2018 Tenosynovitis, de [...] nursing note reviewed. Exam conducted with a urogynecology physician present. Constitutional: General: She is not in [...] (severe) obesity due to excess calories ([facility]) - Primary Discussed with patient [...] urine ratio Chronic kidney disease, stage 3a ([facility]) Monitor labs at minimum every year Relevant Orders Comprehensive metabolic panel Vitamin D 25 hydroxy Associated Problem(s): Chronic kidney disease, stage 3a ([facility]) Monitor labs at minimum every year Associated [...] to excess calories ([facility]) Discussed with patient their BMI (actual, verses recommended). We have also discussed lifestyle modifications: attempts to perform physical activity as chronic conditions allow, also to monitor dietary intake: increasing protein/fruits/veggies and lowering carb intake (unless contraindicated). Limit sodas, juices, and sugary drinks. Has had bariatric surgeries in the past documented in this encounter [place] [id number] History of Present illness Narrative Images from [...] biotin 5 MG tablet Pt taking OTC (PrairieSmarts) Calcium Citrate-Vitamin D (CITRACAL + D PO) Pt taking OTC ([employer]) Cannabinoids (medical cannabis) 1 each carvedilol (COREG) [...] Daily Magnesium 400 MG capsule Pt taking OTC(Fliptop) Melatonin 12 MG tablet 1 tablet, Nightly Multiple Vitamins-Minerals (BARIATRIC MULTIVITAMINS/IRON PO) Pt taking OTC (PrairieSmarts) omeprazole (PRILOSEC) 20 mg, Oral, Daily before [...] 12:11 PM EDT documented in this encounter [facility] 10-13-2024 History of Present illness Narrative Associated [...] manages your OSMANY: Daniela Associated Problem(s): Disorientation Virgie to be related to not using PAP [...] going to have out patient MRI . Virgie that she had some encephalopathy with not wearing PAP She is now wearing her pap. Is back to her baseline able to remember words etc. No weakness no dizziness noted either Follows with Juany Rascon HOT WORKER SUBJECTIVE: MEDICATIONS: Current Outpatient Medications Medication Instructions amLODIPine (NORVASC) 10 mg, Oral, Daily biotin 5 MG tablet Pt taking OTC (PrairieSmarts) Calcium Citrate-Vitamin D (CITRACAL + D PO) Pt taking OTC ([employer]) carvedilol (COREG) 12.5 mg, Oral, 2 times [...] Daily Magnesium 400 MG capsule Pt taking OTC(Fliptop) Melatonin 12 MG tablet 1 tablet, Nightly Multiple Vitamins-Minerals (BARIATRIC MULTIVITAMINS/IRON PO) Pt taking OTC (PrairieSmarts) omeprazole (PRILOSEC) 20 mg, Oral, Daily before [...] Anxiety 05/18/2023 Bipolar disorder with severe depression ([facility]) 05/18/2023 Brain lesion Brain vascular malformation ([facility]) Chronic pain disorder Closed fracture of patella 02/04/2018 Colon polyps Constipation Degenerative cervical disc Degenerative lumbar disc Depression 05/18/2023 Diastolic dysfunction Dizziness 05/18/2023 Dysphagia Fibromyalgia Fibromyalgia Gastrocnemius equinus GERD (gastroesophageal reflux disease) Heart murmur Hematoma of right breast Hemiparesis ([facility]) Hemiparesis, right ([facility]) Hemorrhoid int/external hemorrhoids Hiatal hernia Iron deficiency Left foot pain 03/25/2023 Lower extremity edema Mood disorder mixed mood disorder OSMANY (obstructive sleep apnea) Osteoporosis Overactive bladder Pre-diabetes Primary hypertension 03/25/2023 PTSD (post-traumatic stress disorder) Restless leg Right knee pain Right sided weakness S/P bariatric surgery Shingles Slurred speech Stroke ([facility]) 2018 Tenosynovitis, de [...] meds: amlodipine, losartan, aldactone Disorientation - Primary Virgie to be related to not using PAP [...] MG DR capsule documented in this encounter [facility] 08-16-2024 History of Present illness Narrative Associated [...] biotin 5 MG tablet Pt taking OTC (PrairieSmarts) Calcium Citrate-Vitamin D (CITRACAL + D PO) Pt taking OTC ([employer]) carvedilol (COREG) 12.5 mg, Oral, 2 times daily with meals cetirizine (ZYRTEC) 10 mg, Oral, Daily diclofenac (Voltaren) 50 MG EC tablet DULoxetine (CYMBALTA) 60 mg, 2 times daily fluticasone (Flonase) 50 MCG/ACT nasal spray 2 sprays, Each Nostril, Daily gabapentin (NEURONTIN) 300 mg, Oral, 2 times daily, Due now losartan (COZAAR) 100 mg, Oral, Daily Magnesium 400 MG capsule Pt taking OTC(Fliptop) Melatonin 12 MG tablet 1 tablet, Nightly Multiple Vitamins-Minerals (BARIATRIC MULTIVITAMINS/IRON PO) Pt taking OTC (PrairieSmarts) omeprazole (PRILOSEC) 20 mg, Oral, Daily before [...] 03/25/2023 Lower extremity edema Mood disorder ([facility]) mixed mood disorder OSMANY (obstructive sleep apnea) Osteoporosis ([facility]) Overactive bladder Pre-diabetes Primary hypertension ([facility]) 03/25/2023 PTSD (post-traumatic stress disorder) ([facility]) Restless leg Right knee pain Right sided weakness S/P bariatric surgery Shingles Slurred speech Stroke ([facility]) 2018 Tenosynovitis, de [...] trelegy 100's resolved documented in this encounter [facility] 08-16-2024 Instructions Adelaida Carrion NP - 08/16/2024 11:30 AM EDT Mammogram and lung cancer CT documented in this encounter [facility] 07-27-2024 History of Present illness Narrative Associated Problem(s): Bronchitis Continue OTC mucus relief meds Will add trelegy for bronchitis 100's #2 samples lot [id number], exp 10/28 Fu if not better No s/s resp distress [facility] ER- 07/24/24 Bronchitis & Leurisy Medications: mucus [...] with chief complaint of Hospital Follow-up HPI: [facility] ER- 07/24/24 Bronchitis & Leurisy Medications: mucus [...] biotin 5 MG tablet Pt taking OTC (PrairieSmarts) Calcium Citrate-Vitamin D (CITRACAL + D PO) Pt taking OTC ([employer]) carvedilol (COREG) 12.5 mg, Oral, 2 times daily with meals cetirizine (ZYRTEC) 10 mg, Oral, Daily diclofenac (Voltaren) 50 MG EC tablet DULoxetine (CYMBALTA) 60 mg, 2 times daily fluticasone (Flonase) 50 MCG/ACT nasal spray 2 sprays, Each Nostril, Daily gabapentin (NEURONTIN) 300 mg, Oral, 2 times daily, Due now losartan (COZAAR) 100 mg, Oral, Daily Magnesium 400 MG capsule Pt taking OTC(Fliptop) Melatonin 12 MG tablet 1 tablet, Nightly Multiple Vitamins-Minerals (BARIATRIC MULTIVITAMINS/IRON PO) Pt taking OTC (PrairieSmarts) omeprazole (PRILOSEC) 20 mg, Oral, Daily before [...] 05/18/2023 Bipolar disorder with severe depression ([facility]) 05/18/2023 Brain lesion Brain vascular malformation Chronic pain disorder Closed fracture of patella 02/04/2018 Colon polyps Constipation Degenerative cervical disc Degenerative lumbar disc Depression ([facility]) 05/18/2023 Diastolic dysfunction Dizziness 05/18/2023 Dysphagia Fibromyalgia Fibromyalgia Gastrocnemius equinus GERD (gastroesophageal reflux disease) Heart murmur Hematoma of right breast Hemiparesis ([facility]) Hemiparesis, right ([facility]) Hemorrhoid int/external hemorrhoids Hiatal hernia Iron deficiency Left foot pain 03/25/2023 Lower extremity edema Mood disorder ([facility]) mixed mood disorder OSMANY (obstructive sleep apnea) Osteoporosis ([facility]) Overactive bladder Pre-diabetes Primary hypertension ([facility]) 03/25/2023 PTSD (post-traumatic stress disorder) ([facility]) Restless leg Right knee pain Right sided weakness S/P bariatric surgery Shingles Slurred speech Stroke ([facility]) 2018 Tenosynovitis, de [...] meds: amlodipine, losartan documented in this encounter [facility] 07-26-2024 History of Present illness Narrative Images from the original note were not included. Subjective Chief Complaint Patient presents with Altered Mental Status Past Medical History: Diagnosis Date Abnormal mammogram of left breast Achilles tendinitis, right leg Acute gout of right foot, unspecified cause Allergic rhinitis 05/18/2023 Anemia Anxiety 05/18/2023 Bipolar disorder with severe depression ([facility]/HCC) 05/18/2023 Brain lesion Brain vascular malformation [...] bariatric surgery Shingles Slurred speech Stroke ([facility]) 2018 Tenosynovitis, de [...] Review Audit Reviewed by Beronica Reyes MA (Paleology Teacher) on 07/26/24 at 1049 Medication Order Taking? Sig Documenting Provider Last Dose Status amLODIPine (Norvasc) 10 MG tablet [id number] Take 1 tablet (10 mg) by mouth Daily Adelaida Carrion NP 06/11/24 235 azithromycin (Zithromax) 250 MG tablet [id number] Day #1: 2 tablets, and Day 2-5: 1 tablet daily Adelaida Carrion NP Active biotin 5 MG tablet [id number] Pt taking OTC ([facility]) Historical ProviderMD Active Calcium Citrate-Vitamin D (CITRACAL + D PO) [id number] Pt taking OTC ([employer]) Historical ProviderMD Active carvedilol (Coreg) 12.5 MG tablet [id number] Take 1 tablet (12.5 mg) by mouth in the morning and 1 tablet (12.5 mg) in the evening. Take with meals. Adelaida Carrion NP 06/11/24 235 cetirizine (ZyrTEC) 10 MG tablet [id number] Take 1 tablet (10 mg) by mouth Daily Adelaida Carrion NP 06/11/24 235 DULoxetine (Cymbalta) [address] capsule [id number] Take 60 mg by mouth in the morning and 60 mg before bedtime. Do not crush or chew.. Active fluticasone (Flonase) 50 MCG/ACT nasal spray [id number] Administer 2 sprays into each nostril Daily Adelaida Carrion NP 06/11/24 235 gabapentin (Neurontin) 300 MG capsule [id number] Take 1 capsule (300 mg) by mouth in the morning and 1 capsule (300 mg) before bedtime. Due now. MAUREEN Akbar Active losartan (Cozaar) 100 MG tablet [id number] Take 1 tablet (100 mg) by mouth Daily Adelaida Carrion NP 06/11/24 235 Magnesium 400 MG capsule [id number] Pt taking OTC(Fliptop) Historical ProviderMD Active Melatonin 12 MG tablet [id number] Take 1 tablet by mouth at bedtime Active Multiple Vitamins-Minerals (BARIATRIC MULTIVITAMINS/IRON PO) [id number] Pt taking OTC (amazon) Historical Provider, Active nystatin (Mycostatin) 180877 UNIT/GM powder [id number] Apply 1 application topically in the morning and 1 application before bedtime. Adelaida Carrion NP Active nystatin (Mycostatin) cream [id number] Adelaida Carrion NP Active omeprazole (PriLOSEC) [address] capsule [id number] Take 1 capsule (20 mg) by mouth in the morning. Take before meals. Adelaida Carrion NP 06/11/242358 rOPINIRole (Requip) 2 MG tablet [id number] Take 1 tablet (2 mg) by mouth at bedtime MAUREEN Akbar Active spironolactone (Aldactone) 50 MG tablet [id number] Take 1 tablet (50 mg) by mouth Daily Adelaida Carrion NP 06/11/242358 tiZANidine (Zanaflex) 4 MG tablet [id number] Take 4 mg by mouth every 8 (eight) hours if needed for muscle spasms 1-2 tablets Adelaida Carrion NP Active traZODone (Desyrel) 150 MG tablet [id number] Take 150 mg by mouth at bedtime Active Vraylar 3 MG capsule [id number] Active HPI AMS -weaned Lacosimide -denies any further headaches and dizziness -denies any recent episodes of confusion -trouble with short and long term care 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 LUE Strength deltoid, biceps, triceps, wrist extensors, wrist extensors, wrist flexor, cotton broker strength 5/5. RLE Strength illopsoas, quadriceps, tibialis [...] not all inclusive. Patient was admitted to [facility] from the [facility] on 08/24/2023 with acute respiratory failure and confusion thought to be secondary to metabolic encephalopathy. MOCA 03/01/24 was 26/30. She notes she did speech therapy and responded well to this. She was recently evaluated at [facility] 03/02/2024 for severe encephalopathy. She had brain [...] almost 6 hours a night. ___ [facility] evaluation 02/29/2024: Brain MRI with and without [...] of the brain in July 2019 showed [id number] white matter changes with the largest area [...] in 2 months documented in this encounter [facility] 05-12-[facility] History of Present illness Narrative A1c [...] includes CVA. There is no history of CAD/PR, heart failure or PVD. GERD She reports [...] biotin 5 MG tablet Pt taking OTC ([employer]) Calcium Citrate-Vitamin D (CITRACAL + D PO) [...] Daily Magnesium 400 MG capsule Pt taking OTC([facility]) Melatonin 12 MG tablet 1 tablet, Nightly Multiple Vitamins-Minerals (BARIATRIC MULTIVITAMINS/IRON PO) Pt taking OTC ([facility]) nystatin (Mycostatin) [id number] UNIT/GM powder 1 application , 2 times [...] 05/18/2023 Bipolar disorder with severe depression ([facility]) 05/18/2023 Brain lesion Brain vascular malformation Chronic pain disorder Closed fracture of patella 02/04/2018 Colon polyps Constipation Degenerative cervical disc Degenerative lumbar disc Depression (CMS/HCC) 05/18/2023 Diastolic dysfunction Dizziness 05/18/2023 Dysphagia Fibromyalgia Fibromyalgia Gastrocnemius equinus GERD (gastroesophageal reflux disease) Heart murmur Hematoma of right breast Hemiparesis ([facility]) Hemiparesis, right (CMS/[facility]) Hemorrhoid int/external hemorrhoids Hiatal hernia Iron deficiency Left foot pain 03/25/2023 Lower extremity edema Mood disorder ([facility]) mixed mood disorder OSMANY (obstructive sleep apnea) Osteoporosis ([facility]) Overactive bladder Pre-diabetes Primary hypertension ([facility]) 03/25/2023 PTSD (post-traumatic stress disorder) ([facility]) Restless leg Right knee pain Right sided weakness S/P bariatric surgery Shingles Slurred speech Stroke ([facility]) 2018 Tenosynovitis, de [...] kidney disease, stage 3a (HCC) ([facility]) Monitor labs at minimum every year Body mass index (BMI) 45.0-49.9, adult ([facility]) Other Visit Diagnoses Essential (primary) hypertension ([facility]/HCC) Relevant Medications amLODIPine (Norvasc) 10 MG [...] (severe) obesity due to excess calories ([facility]) Discussed with patient their BMI (actual, verses recommended). We have also discussed lifestyle modifications: attempts to perform physical activity as chronic conditions allow, also to monitor dietary intake: increasing protein/fruits/veggies and lowering carb intake (unless contraindicated). Limit sodas, juices, and sugary drinks. Has had bariatric surgeries in the past Associated Problem(s): Chronic kidney disease, stage 3a (HCC) ([facility]) Monitor labs at minimum every year Associated Problem(s): GERD (gastroesophageal reflux disease) Recommendations: freq small meals, nothing to eat or drink at least 2 hours prior to bed, limit caffeine, alcohol, as well as spicy foods Meds to limit or avoid if possible: NSAIDS Elevate HOB if possible Current meds: omeprazole Associated Problem(s): Primary hypertension ([facility]) Please check blood [...] your OSMANY: Daniela Associated Problem(s): Hemiparesis, right ([facility]) Stable with this from prior stroke documented in this encounter [facility] 05-12-2024 Instructions Adelaida Carrion NP - 05/12/2024 10:00 AM EST No changes in meds documented in this encounter [facility] 04-12-2024 Telephone encounter Note 03/10/2024 Continue Gabapentin 300 mg BID for RLS. Continue clonazepam 0.5mg PO BID for RLS. This was decreased during recent hospitalization Continue Vimpat 50mg PO BID for seizure prevention [facility] 04-12-2024 Miscellaneous Notes 03/10/2024 Continue Gabapentin 300 mg BID for RLS. Continue clonazepam 0.5mg PO BID for RLS. This was decreased during recent hospitalization Continue Vimpat 50mg PO BID for seizure prevention documented in this encounter [facility] 04-07-2024 History of Present illness Narrative Images [...] performance and score on it. Admitted to [facility] from the [facility] on 08/24/2023 with acute respiratory failure and confusion thought to be secondary to metabolic encephalopathy. LTME in August 2023 negative. Recently evaluated at [facility] on 03/02/2024 for severe encephalopathy. Brain MRI [...] any history of alcohol/substance abuse. Reformed smoker. [place] language [place]. Reported relocating from [place] to [place] in 2011. Completed a bachelor's degree. 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 Currently on disability. Resides with of 26 years along with her son, grandson, and 2 dogs. Has 2 children from a prior relationship. MEDICAL HISTORY/MEDICATION: MEDICATIONS: Current Outpatient Medications Medication Instructions amLODIPine (NORVASC) 10 mg, Oral, Daily biotin 5 MG tablet Pt taking OTC ([employer]) Calcium Citrate-Vitamin D (CITRACAL + D PO) Pt taking OTC ([employer]) carvedilol (COREG) 12.5 mg, Oral, 2 times [...] Daily Magnesium 400 MG capsule Pt taking OTC([facility]) Melatonin 12 MG tablet 1 tablet, Oral, Nightly Multiple Vitamins-Minerals (BARIATRIC MULTIVITAMINS/IRON PO) Pt taking OTC ([facility]) nystatin (Mycostatin) [id number] UNIT/GM powder 1 application , 2 times [...] design >16th %ile. Motor/Speed of Processing: Right-handed. Student Development Advisor strength 16th %ile with right-hand, 38th %ile [...] Learning of a word list 79th %ile (7-13-17-12-12), delayed recall 93rd %ile. Recognition discriminability 93rd [...] Please contact me with any questions at [phone]. documented in this encounter [facility] 03-16-2024 History of Present illness Narrative Associated Problem(s): Right bundle branch block (RBBB) determined by electrocardiography At this point I will look at her past EKG's, She has had ECHO in past No symptoms, at this time I do not think that further testing is needed Pt is having a memory test done on apr 07 in [place] Pt is anxious and afraid-pt father had dementia Spironolactone pt is asking for 50mg instead of 25mg Images from the original note were not included. Michelle Be is a 63 y.o. female presents with chief complaint of Anxiety HPI: Here for hospital follow up: AMS She was evaluated at [facility], was seen by Neurology reviewed notes from [...] Daily Magnesium 400 MG capsule Pt taking OTC([facility]) Melatonin 12 MG tablet 1 tablet, Oral, Nightly Multiple Vitamins-Minerals (BARIATRIC MULTIVITAMINS/IRON PO) Pt taking OTC ([facility]) nystatin (Mycostatin) [id number] UNIT/GM powder 1 application , 2 times [...] 05/18/2023 Bipolar disorder with severe depression ([facility]) 05/18/2023 Brain lesion Brain vascular malformation Chronic pain disorder Closed fracture of patella 02/04/2018 Colon polyps Constipation Degenerative cervical disc Degenerative lumbar disc Depression ([facility]/HCC) 05/18/2023 Diastolic dysfunction Dizziness 05/18/2023 Dysphagia Fibromyalgia Fibromyalgia Gastrocnemius equinus GERD (gastroesophageal reflux disease) Heart murmur Hematoma of right breast Hemiparesis ([facility]) Hemiparesis, right ([facility]) Hemorrhoid int/external hemorrhoids Hiatal hernia Iron deficiency Left foot pain 03/25/2023 Lower extremity edema Mood disorder ([facility]) mixed mood disorder OSMANY (obstructive sleep apnea) Osteoporosis ([facility]) Overactive bladder Pre-diabetes Primary hypertension ([facility]) 03/25/2023 PTSD (post-traumatic stress disorder) ([facility]) Restless leg Right knee pain Right sided weakness S/P bariatric surgery Shingles Slurred speech Stroke ([facility]) 2018 Tenosynovitis, de [...] to have evaluation documented in this encounter [facility] 03-16-2024 Instructions Adelaida Carrion NP - 03/16/2024 10:00 AM EST Spironolactone: I discontinued the 25mg script for this, sent a new script to [facility], for a 50mg pill, you will take 1 pill daily Memory testing in Apr 2024 Follow up with me in early May, sooner if needed documented in this encounter [facility] 03-16-2024 Telephone encounter Note Yep, sent to [facility]. [facility] 03-16-2024 Miscellaneous Notes Yep, sent to [facility]. Patient calls and states that hospital lowered her requip to 2 mg at bed time. Okay to send as new dosage? documented in this encounter [facility] 03-15-2024 Telephone encounter Note Patient calls and states that hospital lowered her requip to 2 mg at bed time. Okay to send as new dosage? [facility] 03-14-2024 History of Present illness Narrative Images [...] performance and score on it. Admitted to [facility] from the [facility] on 08/24/2023 with acute respiratory failure and confusion thought to be secondary to metabolic encephalopathy. Previous LTME in August 2023 negative. Recently evaluated at [facility] on 03/02/2024 for severe encephalopathy. Brain MRI [...] any history of alcohol/substance abuse. Reformed smoker. [place] language [place]. Reported relocating from [place] to [place] in 2011. Completed a bachelors degree. Previously [...] 05/18/2023 Bipolar disorder with severe depression ([facility]/HCC) 05/18/2023 Brain lesion Brain vascular malformation [...] S/P bariatric surgery Shingles Slurred speech Stroke ([facility]) 2018 Tenosynovitis, de Quervain Thoracic back pain, unspecified back pain laterality, unspecified chronicity Tobacco dependence Vertigo, benign paroxysmal Yeast infection of the skin 05/18/2023 MEDICATIONS: Current Outpatient Medications Medication Instructions amLODIPine (NORVASC) 10 mg, Oral, Daily biotin 5 MG tablet Pt taking OTC ([facility]) Calcium Citrate-Vitamin D (CITRACAL + D PO) Pt taking OTC ([facility]) carvedilol (COREG) 12.5 mg, Oral, [...] Daily Magnesium 400 MG capsule Pt taking OTC([facility]) Melatonin 12 MG tablet 1 tablet, Oral, Nightly Multiple Vitamins-Minerals (BARIATRIC MULTIVITAMINS/IRON PO) Pt taking OTC ([facility]) nystatin (Mycostatin) [id number] UNIT/GM powder 1 application , Topical, 2 [...] Please contact me with any questions at [phone]. documented in this encounter [facility] 02-16-2024 History of Present illness Narrative Pt [...] biotin 5 MG tablet Pt taking OTC ([employer]) Calcium Citrate-Vitamin D (CITRACAL + D PO) Pt taking OTC ([employer]) carvedilol (COREG) 12.5 mg, Oral, 2 times [...] Daily Magnesium 400 MG capsule Pt taking OTC([employer]) Melatonin 12 MG tablet 1 tablet, Oral, Nightly Multiple Vitamins-Minerals (BARIATRIC MULTIVITAMINS/IRON PO) Pt taking OTC ([employer]) nystatin (Mycostatin) [id number] UNIT/GM powder 1 application , Topical, 2 [...] 05/18/2023 Bipolar disorder with severe depression ([facility]) 05/18/2023 Brain lesion Brain vascular malformation Chronic pain disorder Closed fracture of patella 02/04/2018 Colon polyps Constipation Degenerative cervical disc Degenerative lumbar disc Depression ([facility]/HCC) 05/18/2023 Diastolic dysfunction Dizziness 05/18/2023 Dysphagia Fibromyalgia Fibromyalgia Gastrocnemius equinus GERD (gastroesophageal reflux disease) Heart murmur Hematoma of right breast Hemiparesis ([facility]) Hemiparesis, right ([facility]) Hemorrhoid int/external hemorrhoids Hiatal hernia Iron deficiency Left foot pain 03/25/2023 Lower extremity edema Mood disorder ([facility]) mixed mood disorder OSMANY (obstructive sleep apnea) Osteoporosis ([facility]) Overactive bladder Pre-diabetes Primary hypertension ([facility]) 03/25/2023 PTSD (post-traumatic stress disorder) ([facility]) Restless leg Right knee pain Right sided weakness S/P bariatric surgery Shingles Slurred speech Stroke ([facility]) 2018 Tenosynovitis, de [...] nursing note reviewed. Exam conducted with a urogynecology physician present. Constitutional: General: She is not in [...] chronic conditions allow documented in this encounter [facility] 01-28-2024 History of Present illness Narrative Associated [...] for UTI and dehydration. See [facility] for HPI Was sent home on Bactrim. Feels completely fine now, no fever, chills, malodorous urine, no constipation diarrhea or abd pain SUBJECTIVE: MEDICATIONS: Current Outpatient Medications Medication Instructions amLODIPine (NORVASC) 10 mg, Oral, Daily biotin 5 MG tablet Pt taking OTC ([employer]) Calcium Citrate-Vitamin D (CITRACAL + D PO) Pt taking OTC ([employer]) carvedilol (COREG) 12.5 mg, Oral, 2 times [...] Daily Magnesium 400 MG capsule Pt taking OTC(Fli[facility]) Melatonin 12 MG tablet 1 tablet, Oral, Nightly Multiple Vitamins-Minerals (BARIATRIC MULTIVITAMINS/IRON PO) Pt taking OTC ([employer]) nystatin (Mycostatin) [id number] UNIT/GM powder 1 application , Topical, 2 [...] 05/18/2023 Bipolar disorder with severe depression ([facility]) 05/18/2023 Brain lesion Brain vascular malformation Chronic pain disorder Closed fracture of patella 02/04/2018 Colon polyps Constipation Degenerative cervical disc Degenerative lumbar disc Depression ([facility]) 05/18/2023 Diastolic dysfunction Dizziness 05/18/2023 Dysphagia Fibromyalgia Fibromyalgia Gastrocnemius equinus GERD (gastroesophageal reflux disease) Heart murmur Hematoma of right breast Hemiparesis ([facility]) Hemiparesis, right ([facility]) Hemorrhoid int/external hemorrhoids Hiatal hernia Iron deficiency Left foot pain 03/25/2023 Lower extremity edema Mood disorder ([facility]) mixed mood disorder OSMANY (obstructive sleep apnea) Osteoporosis ([facility]) Overactive bladder Pre-diabetes Primary hypertension ([facility]) 03/25/2023 PTSD (post-traumatic stress disorder) ([facility]) Restless leg Right knee pain Right sided weakness S/P bariatric surgery Shingles Slurred speech Stroke ([facility]) 2018 Tenosynovitis, de [...] of the risks of continued smoking: stroke, PR, all forms of cancer, lung disease, and [...] Relevant Orders Flu vaccine, MDCK, quadrivalent, PF ([id number]) (Flucelvax single dose syringe) Associated Problem(s): Tobacco dependence The patient has been advised of the risks of continued smoking: stroke, PR, all forms of cancer, lung disease, and . Options for quitting smoking include: cold turkey, hypnosis, acupuncture, nicotine replacement meds (gum, lozenges, and patches), Buproprion, and Varenicline. At this time pt is encouraged to evaluate their goals for wanting to quit smoking, and reach out to provider when ready to start this process documented in this encounter [facility] 01-04-2024 History of Present illness Narrative Associated [...] compliance problems. There is no history of CAD/PR, heart failure or PVD. Identifiable causes of hypertension include sleep apnea. SUBJECTIVE: MEDICATIONS: Current Outpatient Medications Medication Instructions amLODIPine (NORVASC) 10 mg, Oral, Daily biotin 5 MG tablet Pt taking OTC (amazon) Calcium Citrate-Vitamin D (CITRACAL + D PO) Pt taking OTC ([facility]) carvedilol (COREG) 12.5 mg, Oral, [...] Daily Magnesium 400 MG capsule Pt taking OTC([facility]) Melatonin 12 MG tablet 1 tablet, Oral, Nightly Multiple Vitamins-Minerals (BARIATRIC MULTIVITAMINS/IRON PO) Pt taking OTC ([facility]) nystatin (Mycostatin) [id number] UNIT/GM powder 1 application , Topical, 2 [...] 05/18/2023 Bipolar disorder with severe depression ([facility]) 05/18/2023 Brain lesion Brain vascular malformation Chronic pain disorder Closed fracture of patella 02/04/2018 Colon polyps Constipation Degenerative cervical disc Degenerative lumbar disc Depression ([facility]) 05/18/2023 Diastolic dysfunction Dizziness 05/18/2023 Dysphagia Fibromyalgia Fibromyalgia Gastrocnemius equinus GERD (gastroesophageal reflux disease) Heart murmur Hematoma of right breast Hemiparesis ([facility]) Hemiparesis, right ([facility]) Hemorrhoid int/external hemorrhoids Hiatal hernia Iron deficiency Left foot pain 03/25/2023 Lower extremity edema Mood disorder ([facility]) mixed mood disorder OSMANY (obstructive sleep apnea) Osteoporosis ([facility]) Overactive bladder Pre-diabetes Primary hypertension ([facility]) 03/25/2023 PTSD (post-traumatic stress disorder) ([facility]) Restless leg Right knee pain Right sided weakness S/P bariatric surgery Shingles Slurred speech Stroke ([facility]) 2018 Tenosynovitis, de [...] MCG/ACT nasal spray documented in this encounter [facility] 12-09-2023 History of Present illness Narrative Images [...] machine. She is normally seen at the [facility] and was last seen on [...] melatonin. She was last seen in the [facility] on June 24, 2023. Since [...] for short term insomnia and not for half-way insomnia. She is compliant on her download [...] was counseled on the risks of stroke, PR, and sudden with OSMANY, along with the [...] clinic: one year documented in this encounter [facility] 12-08-2023 History of Present illness Narrative Patient [...] 05/18/2023 Bipolar disorder with severe depression ([facility] [facility]/HCC) 05/18/2023 Brain lesion Brain vascular malformation [...] hypertension (CMS/HCC) 03/25/2023 PTSD (post-traumatic stress disorder) ([facility]) Restless leg Right knee pain Right sided weakness S/P bariatric surgery Shingles Slurred speech Stroke ([facility]) 2018 Tenosynovitis, de [...] Review Audit Reviewed by Festus Baron MA (Paleology Teacher) on 12/08/23 at 1525 Medication Order Taking? Sig Documenting Provider Last Dose Status amLODIPine (Norvasc) 10 MG tablet [id number] Take 1 tablet (10 mg) by mouth Daily Adelaida Carrion NP Active biotin 5 MG tablet [id number] Pt taking OTC ([employer]) Historical ProviderMD Active Calcium Citrate-Vitamin D (CITRACAL + D PO) 66579885 Pt taking OTC ([employer]) Historical Provider, Active Cariprazine HCl (Vraylar) 4.5 MG capsule [id number] Take 4.5 mg by mouth Daily Active carvedilol (Coreg) 12.5 MG tablet [id number] Take 1 tablet (12.5 mg) by mouth in the morning and 1 tablet (12.5 mg) in the evening. Take with meals. Adelaida Carrion NP Active cetirizine (ZyrTEC) 10 MG tablet [id number] Take 1 tablet (10 mg) by mouth Daily Adelaida Carrion NP Active clonazePAM (KlonoPIN) 1 MG tablet [id number] Take 1 tablet (1 mg) by mouth 2 (two) times a day as needed for anxiety Do not start before October 16, 2023. Sonam Brown NP 11/15/23 2359 DULoxetine (Cymbalta) [address] capsule [id number] Take 60 mg by mouth in the morning and 60 mg before bedtime. Do not crush or chew.. Active fluconazole (Diflucan) 150 MG tablet [id number] 1 pill every 3 days for a total of 3 doses Adelaida Carrion NP Active fluticasone (Flonase) 50 MCG/ACT nasal spray [id number] Administer 2 sprays into each nostril Daily Adelaida Carrion NP 11/04/23 2359 gabapentin (Neurontin) 300 MG capsule [id number] Take 1 capsule (300 mg) by mouth in the morning and 1 capsule (300 mg) before bedtime. Sonam Brown NP Active losartan (Cozaar) 100 MG tablet [id number] Take 1 tablet (100 mg) by mouth Daily Adelaida Carrion NP Active Magnesium 400 MG capsule [id number] Pt taking OTC(Fliptop) Historical ProviderMD Active Melatonin 12 MG tablet [id number] Take 1 tablet by mouth at bedtime Active Multiple Vitamins-Minerals (BARIATRIC MULTIVITAMINS/IRON PO) [id number] Pt taking OTC ([employer]) Historical ProviderMD Active nystatin (Mycostatin) 830175 UNIT/GM powder [id number] Apply 1 application topically in the morning and 1 application before bedtime. Adelaida Carrion NP Active omeprazole (PriLOSEC) [address] capsule [id number] Take 1 capsule (20 mg) by mouth in the morning. Take before meals. Adelaida Carrion NP Active rOPINIRole (Requip) 4 MG tablet [id number] Take 1 tablet (4 mg) by mouth at bedtime Sonam Brown NP Active spironolactone (Aldactone) 25 MG tablet [id number] Take 2 tablets (50 mg) by mouth Daily Adelaida Carrion NP Active tiZANidine (Zanaflex) 2 MG tablet [id number] Take 2 mg by mouth every 8 (eight) hours Adelaida Carrion NP Active traZODone (Desyrel) 150 MG tablet [id number] Take 150 mg by mouth at bedtime Active HPI AMS -Patient was admitted to [facility] on 08/[facility]2023 with acute respiratory failure and confusion thought to be secondary to metabolic encephalopathy. Patient denies any new hospital stays. -She was seen by Neurology who thought she had a toxic encephalopathy secondary to medication overuse. -She was monitored on LTME which did not show any evidence of seizures. -After she was discharged she had a short stay at the snf facility on 09/03/2023 and she was discharged [...] ankle and great toe bilaterally. Coordination Right: Aswwbq-if-tfwk normal. Rapid alternating movement normal.Left: Tfkenv-yv-lfcr normal. Rapid alternating movement normal. Gait Casual gait is normal including stance, stride, and arm swing. Motor Examination RUE Strength deltoid, biceps, triceps, wrist extensors, wrist extensors, wrist flexor, cotton broker strength 5/5. LUE Strength deltoid, biceps, triceps, wrist extensors, wrist extensors, wrist flexor, cotton broker strength 5/5. RLE Strength illopsoas, quadriceps, tibialis [...] not all inclusive. Patient was admitted to [facility] from [facility] on 08/24/2023 with acute respiratory failure and [...] of the brain in July 2019 showed huab-ot-pctsvpgw white matter changes with the largest area [...] make further recommendations documented in this encounter [facility] 05-18-[facility]23 History of Present illness Narrative Associated [...] (BARIATRIC MULTIVITAMINS/IRON PO) Bariatric Multivitamins/Iron nystatin (Mycostatin) 730407 UNIT/GM powder 1 application , Topical, 2 [...] 05/18/2023 Bipolar disorder with severe depression ([facility]) 05/18/2023 Brain vascular malformation Chronic pain disorder Colon polyps Constipation Degenerative cervical disc Degenerative lumbar disc Depression ([facility]) 05/18/2023 Diastolic dysfunction Dizziness 05/18/2023 Dysphagia Fibromyalgia Gastrocnemius equinus GERD (gastroesophageal reflux disease) Heart murmur Hematoma of right breast Hemiparesis, right ([facility]) Hemorrhoid int/external hemorrhoids Hiatal hernia Iron deficiency Left foot pain 03/25/2023 Lower extremity edema Mood disorder ([facility]) mixed mood disorder OSMANY (obstructive sleep apnea) Osteoporosis ([facility]) Overactive bladder Pre-diabetes Primary hypertension ([facility]) 03/25/2023 PTSD (post-traumatic stress disorder) ([facility]) Restless leg Right knee pain Right sided weakness S/P bariatric surgery Shingles Slurred speech Stroke ([facility]) 2018 Tenosynovitis, de [...] yearly and prn documented in this encounter [facility] 03-23-2023 Procedure note [facility] 12-19-2022 Evaluation note Encounter Date Diagnosis Assessment Notes Dec, Skin candidiasis (ICD-10 - B37.2) Drink plenty fluids, get plenty of rest. Continue home medications as prescribed. Take the Diflucan as prescribed until gone. Follow-up with your family physician if no improvement in 2 to 3 days [employer] Other 08-17-2023 Discharge summary Author Eduardo barrett [facility] November 20, 2022 6:38am Note Date/Time November 20, 2022 6: 38am [facility] [address] [place] [address] Discharge Summary Signed Patient: Michelle Be MR#: [id number] : 1960 Acct:[id number] Age/Sex: 61 / F Adm Date: 3 Loc: Room: [address] [place] [address]: Gaudencio Monk MD Copies to: [...] at that time.? She reports moving to [place] from [place] in 2011 and was then diagnosed with bipolar disorder at [facility] in [place], where she still follows with a therapist.? Shereports that she has been with 7 therapists in the last 9 years and is currentlycompleting EMDR with her current therapist. Past hospitalizations: Her most recent hospitalization was 5 years ago [facility] in [place] for the same feeling she is experiencing [...] worked since 2010 due to her fibromyalgia.? [facility]. Relationships: Reports having people [...] self or stop treatment, but to call [facility], [facility] or come to the nearest emergency room. 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 (insert date/time [...] by Eduardo Monk MD> 11/20/22 0638 [facility] Work Phone: 1(655) 782-117508-16-2023 Progress note Author Eduardo barrett [facility] November 19, 2022 6:25am Note Date/Time November 19, 2022 6: 25am [facility] [address] [place] [address] Psychiatry Progress Note Signed Patient: Michelle Be MR#: [id number] : 1960 Acct:[id number] Age/Sex: 61 / F Adm Date: 3 Loc: 1S Room: 2Z0088-3 Type : ADM IN Attending Dr: Gaudencio [...] by Eduardo Monk MD> 11/19/22 0625 [facility] Work Phone: 1(868) 409-408208-15-2023 Progress note Author Eduardo barrett [facility] November 18, 2022 11:01am Note Date/Time November 18, 2022 10 :11am [facility] [address] [place] [address] Psychiatry Progress Note Signed Patient: Michelle Be MR#: [id number] : 1960 Acct:[id number] Age/Sex: 61 / F Adm Date: 3 Loc: Room: [address] [place] [address] Type : ADM IN Attending Dr: Gaudencio [...] by requesting a schedule 2 referring to [facility] for pain management specifically every 4-6 hours [...] time Documented By: Eduardo Monk MD 3 [id number] Signed By: <Electronically signed by Eduardo Monk MD> 11/18/22 1101 <Electronically signed by MD DA Rangel> 11/18/22 1011 [facility] Work Phone: 1(290) 189-877008-14-2023 History and physical note Author Eduardo barertt [facility] November 17, 2022 12:48pm Note Date/Time November 17, 2022 12 :48pm [facility] [address] [place] [address] Psychiatry H&P Signed Patient: Michelle Be MR#: [id number] : 1960 Acct:[id number] Age/Sex: 61 / F Adm Date: 3 Loc: Room: [address] [place] [address] Type: ADM IN Attending Dr: Gaudencio Monk [...] at that time. She reports moving to [place] from [place] in 2011 and was then diagnosed with bipolar disorder at [facility] in [place], where she still follows with a therapist. Shereports that she has been with 7 therapists in the last 9 years and is currentlycompleting EMDR with her current therapist. Past hospitalizations: Her most recent hospitalization was 5 years ago [facility] for the same feeling she is [...] worked since 2010 due to her fibromyalgia. [facility]. Relationships: Reports having people [...] CN XII: Tongue protrusion midline [facility] Medical History (Updated 11/17/22 @ 10:42 [...] Meds Medications and Allergies Allergies levetiracetam [From [facility]] Allergy (Verified 11/17/22 02:16) Unknown Reaction [...] signed by Eduardo Monk MD> 11/17/22 1248 [facility] Work Phone: 1([phone]) 147-771703-23-2023 NoteCONSULTATION CONSULTATION DATE: 06/26/2022 To: Nurse Carrion [...] facet joint injection under fluoroscopic guidance.[id number] NotePROCEDURE: XR SHOULDER RT 2V or > [...] authenticated by: KINGSLEY CLEMENTS Date: 2022-04-28 13:31[id number] NoteCONSULTATION CONSULTATION DATE: 04/03/2022 HISTORY OF PRESENT [...] in three months, unless otherwise indicated.[id number] NoteCONSULTATION CONSULTATION DATE: 01/02/2022 This is a [...] prescription was sent by Dr. Macedo to [facility] in [place] for the compounded cream. She needs a [...] three months' time unless otherwise indicated.[id number] NotePROCEDURE: XR ANKLE RT MIN 3 VIEWS, [...] with the plan of care. [facility] Signed and Approved by: ZELDA MCDANIEL . 10/10/2021 10:22:00[facility] Diagnosis Onset Date Resolution Status Allergies acute Bipolar 2 disorder acute Hypertension acute Morbid obesity with BMI of 45.0-49.9, adult acute OSMANY (obstructive sleep apnea) acute Restless legs syndrome acute [facility] Work Phone: Evaluation noteNo InformationNort Floored Other Evaluation noteNo assessment information available [facility] Work Phone: Evaluation note* Diagnosis Encounter for annual wellness visit (AWV) in Medicare patient- Primary OSMANY (obstructive sleep apnea) Obstructive sleep apnea (adult) (pediatric) Chronic pain disorder Chronic pain syndrome Gastroesophageal reflux disease, unspecified whether esophagitis present Overactive bladder Hypertonicity of bladder Lower extremity edema Edema Pre-diabetes Other abnormal glucose Morbid obesity ([facility]/HCC) Morbid obesity Yeast infection of the skin Candidiasis of skin and nails Tobacco dependence Tobacco use disorder Mood disorder ([facility]/HCC) Unspecified episodic mood disorder Primary hypertension ([facility]) Unspecified essential hypertension Left hip pain Pain in joint, pelvic region and thigh Open wound of anterior abdominal wall, initial encounter documented in this encounter [facility] HealthcareEvaluation note* Diagnosis Acute cystitis with hematuria- Primary documented in this encounter [facility] HealthcareEvaluation note* Diagnosis Left foot pain- Primary Pain in soft tissues of limb Primary hypertension ([facility]) Unspecified essential hypertension Class 3 severe obesity due to excess calories without serious comorbidity with body mass index (BMI) of 45.0 to 49.9 in adult ([facility]) Encounter for annual [...] dependence Tobacco use disorder Mood disorder ([facility]/HCC) Unspecified episodic mood disorder Primary hypertension ([facility]) Unspecified essential hypertension Left hip pain Pain in joint, pelvic region and thigh Open wound of anterior abdominal wall, initial encounter Primary hypertension ([facility]/HCC)- Primary Unspecified essential hypertension Yeast infection of the skin Candidiasis of skin and nails Morbid obesity ([facility]/HCC) Morbid obesity Primary hypertension ([facility])- Primary Unspecified essential hypertension Encounter for screening mammogram for malignant neoplasm of breast Gastroesophageal reflux disease, unspecified whether esophagitis present Acute gout of right foot, unspecified cause Osteoporosis, unspecified osteoporosis type, unspecified pathological fracture presence ([facility]) Morbid obesity ([facility]) Morbid obesity Pre-diabetes Other abnormal glucose Anemia, unspecified type Vitamin deficiency Unspecified vitamin deficiency Post-viral cough syndrome Primary hypertension ([facility])- Primary Unspecified essential hypertension Allergic rhinitis, unspecified Acute cough Morbid obesity ([facility]) Morbid obesity Former cigarette smoker Personal history of tobacco use, presenting hazards to health Toxic metabolic encephalopathy- Primary Hemiparesis, right ([facility]) Unspecified hemiplegia affecting unspecified side Acute respiratory failure with hypoxia ([facility]) Heart murmur Undiagnosed cardiac murmurs Primary hypertension ([facility]) Unspecified essential hypertension Morbid obesity ([facility]) Morbid obesity Bipolar disorder with severe depression ([facility]) Slurred speech Other speech disturbance Bilateral lower extremity edema- Primary Primary hypertension ([facility]) Unspecified essential hypertension Lower extremity edema Edema Essential (primary) hypertension ([facility]) Unspecified essential hypertension Gastro-esophageal reflux disease without esophagitis Allergic rhinitis, unspecified Bilateral lower extremity edema- Primary Morbid (severe) obesity due to excess calories ([facility]) Body mass index (BMI) 45.0-49.9, adult ([facility]) Pre-diabetes Other abnormal glucose Bilateral lower extremity edema- Primary Essential (primary) hypertension ([facility]) Unspecified essential hypertension Allergic rhinitis, unspecified OSMANY (obstructive sleep apnea) Obstructive sleep apnea (adult) (pediatric) Primary hypertension ([facility]) Unspecified essential hypertension Morbid obesity ([facility]) Morbid obesity Acute cystitis without hematuria- Primary Tobacco dependence Tobacco use disorder Needs flu shot Need for prophylactic vaccination and inoculation against influenza Morbid obesity ([facility]) Morbid obesity documented in this encounter [facility] HealthcareEvaluation note* Diagnosis Left foot pain- Primary Pain in soft tissues of limb Primary hypertension ([facility]) Unspecified essential hypertension Class 3 severe obesity due to excess calories without serious comorbidity with body mass index (BMI) of 45.0 to 49.9 in adult ([facility]) Encounter for annual wellness visit (AWV) in Medicare patient- Primary OSMANY (obstructive sleep apnea) Obstructive sleep apnea (adult) (pediatric) Chronic pain disorder Chronic pain syndrome Gastroesophageal reflux disease, unspecified whether esophagitis present Overactive bladder Hypertonicity of bladder Lower extremity edema Edema Pre-diabetes Other abnormal glucose Morbid obesity ([facility]/HCC) Morbid obesity Yeast infection of the skin Candidiasis of skin and nails Tobacco dependence Tobacco use disorder Mood disorder ([facility]) Unspecified episodic mood disorder Primary hypertension ([facility]) Unspecified essential hypertension Left hip pain Pain in joint, pelvic region and thigh Open wound of anterior abdominal wall, initial encounter Primary hypertension ([facility])- Primary Unspecified essential hypertension Yeast infection of the skin Candidiasis of skin and nails Morbid obesity ([facility]) Morbid obesity Primary hypertension ([facility])- Primary Unspecified essential hypertension Encounter for screening mammogram for malignant neoplasm of breast Gastroesophageal reflux disease, unspecified whether esophagitis present Acute gout of right foot, unspecified cause Osteoporosis, unspecified osteoporosis type, unspecified pathological fracture presence ([facility]) Morbid obesity ([facility]) Morbid obesity Pre-diabetes Other abnormal glucose Anemia, unspecified type Vitamin deficiency Unspecified vitamin deficiency Post-viral cough syndrome Primary hypertension ([facility])- Primary Unspecified essential hypertension Allergic rhinitis, unspecified Acute cough Morbid obesity ([facility]) Morbid obesity Former cigarette smoker Personal history of tobacco use, presenting hazards to health Toxic metabolic encephalopathy- Primary Hemiparesis, right ([facility]) Unspecified hemiplegia affecting unspecified side Acute respiratory failure with hypoxia ([facility]) Heart murmur Undiagnosed cardiac murmurs Primary hypertension ([facility] Unspecified essential hypertension Morbid obesity ([facility]) Morbid obesity Bipolar disorder with severe depression ([facility]) Slurred speech Other speech disturbance Bilateral lower extremity edema- Primary Primary hypertension ([facility]) Unspecified essential hypertension Lower extremity edema Edema Essential (primary) hypertension ([facility]) Unspecified essential hypertension Gastro-esophageal reflux disease without esophagitis Allergic rhinitis, unspecified Bilateral lower extremity edema- Primary Morbid (severe) obesity due to excess calories ([facility]) Body mass index (BMI) 45.0-49.9, adult ([facility]) Pre-diabetes Other abnormal glucose Bilateral lower extremity edema- Primary Essential (primary) hypertension ([facility]) Unspecified essential hypertension Allergic rhinitis, unspecified OSMANY (obstructive sleep apnea) Obstructive sleep apnea (adult) (pediatric) Primary hypertension ([facility]) Unspecified essential hypertension Morbid obesity ([facility]) Morbid obesity Acute cystitis without hematuria- Primary Tobacco dependence Tobacco use disorder Needs flu shot Need for prophylactic vaccination and inoculation against influenza Morbid obesity ([facility]) Morbid obesity Restless leg Restless legs syndrome (RLS) documented in this encounter [facility] HealthcareEvaluation note* Diagnosis Left foot pain- Primary Pain in soft tissues of limb Primary hypertension ([facility]) Unspecified essential hypertension Class 3 severe obesity due to excess calories without serious comorbidity with body mass index (BMI) of 45.0 to 49.9 in adult ([facility]) Encounter for annual wellness visit (AWV) in Medicare patient- Primary OSMANY (obstructive sleep apnea) Obstructive sleep apnea (adult) (pediatric) Chronic pain disorder Chronic pain syndrome Gastroesophageal reflux disease, unspecified whether esophagitis present Overactive bladder Hypertonicity of bladder Lower extremity edema Edema Pre-diabetes Other abnormal glucose Morbid obesity ([facility]) Morbid obesity Yeast infection of the skin Candidiasis of skin and nails Tobacco dependence Tobacco use disorder Mood disorder ([facility]) Unspecified episodic mood disorder Primary hypertension ([facility]) Unspecified essential hypertension Left hip pain Pain in joint, pelvic region and thigh Open wound of anterior abdominal wall, initial encounter Primary hypertension ([facility])- Primary Unspecified essential hypertension Yeast infection of the skin Candidiasis of skin and nails Morbid obesity ([facility]) Morbid obesity Primary hypertension ([facility])- Primary Unspecified essential hypertension Encounter for screening mammogram for malignant neoplasm of breast Gastroesophageal reflux disease, unspecified whether esophagitis present Acute gout of right foot, unspecified cause Osteoporosis, unspecified osteoporosis type, unspecified pathological fracture presence ([facility]) Morbid obesity ([facility]) Morbid obesity Pre-diabetes Other abnormal glucose Anemia, unspecified type Vitamin deficiency Unspecified vitamin deficiency Post-viral cough syndrome Primary hypertension ([facility])- Primary Unspecified essential hypertension Allergic rhinitis, unspecified Acute cough Morbid obesity ([facility]) Morbid obesity Former cigarette smoker Personal history of tobacco use, presenting hazards to health Toxic metabolic encephalopathy- Primary Hemiparesis, right ([facility]) Unspecified hemiplegia affecting unspecified side Acute respiratory failure with hypoxia ([facility]) Heart murmur Undiagnosed cardiac murmurs Primary hypertension ([facility]) Unspecified essential hypertension Morbid obesity ([facility]) Morbid obesity Bipolar disorder with severe depression ([facility]) Slurred speech Other speech disturbance Bilateral lower extremity edema- Primary Primary hypertension ([facility]) Unspecified essential hypertension Lower extremity edema Edema Essential (primary) hypertension ([facility]) Unspecified essential hypertension Gastro-esophageal reflux disease without esophagitis Allergic rhinitis, unspecified Bilateral lower extremity edema- Primary Morbid (severe) obesity due to excess calories ([facility]) Body mass index (BMI) 45.0-49.9, adult ([facility]) Pre-diabetes Other abnormal glucose Bilateral lower extremity edema- Primary Essential (primary) hypertension ([facility]) Unspecified essential hypertension Allergic rhinitis, unspecified OSMANY (obstructive sleep apnea) Obstructive sleep apnea (adult) (pediatric) Primary hypertension ([facility]) Unspecified essential hypertension Morbid obesity ([facility]) Morbid obesity Acute cystitis without hematuria- Primary Tobacco dependence Tobacco use disorder Needs flu shot Need for prophylactic vaccination and inoculation against influenza Morbid obesity ([facility]) Morbid obesity Well woman exam with routine gynecological exam- Primary Routine gynecological examination Morbid obesity ([facility]) Morbid obesity documented in this encounter [facility] HealthcareEvaluation note* Diagnosis Left foot pain- Primary Pain in soft tissues of limb Primary hypertension ([facility]) Unspecified essential hypertension Class 3 severe obesity due to excess calories without serious comorbidity with body mass index (BMI) of 45.0 to 49.9 in adult ([facility]) Encounter for annual wellness visit (AWV) in Medicare patient- Primary OSMANY (obstructive sleep apnea) Obstructive sleep apnea (adult) (pediatric) Chronic pain disorder Chronic pain syndrome Gastroesophageal reflux disease, unspecified whether esophagitis present Overactive bladder Hypertonicity of bladder Lower extremity edema Edema Pre-diabetes Other abnormal glucose Morbid obesity ([facility]) Morbid obesity Yeast infection of the skin Candidiasis of skin and nails Tobacco dependence Tobacco use disorder Mood disorder ([facility] Unspecified episodic mood disorder Primary hypertension ([facility]) Unspecified essential hypertension Left hip pain Pain in joint, pelvic region and thigh Open wound of anterior abdominal wall, initial encounter Primary hypertension ([facility])- Primary Unspecified essential hypertension Yeast infection of the skin Candidiasis of skin and nails Morbid obesity ([facility]) Morbid obesity Primary hypertension ([facility])- Primary Unspecified essential hypertension Encounter for screening mammogram for malignant neoplasm of breast Gastroesophageal reflux disease, unspecified whether esophagitis present Acute gout of right foot, unspecified cause Osteoporosis, unspecified osteoporosis type, unspecified pathological fracture presence ([facility]) Morbid obesity ([facility]) Morbid obesity Pre-diabetes Other abnormal glucose Anemia, unspecified type Vitamin deficiency Unspecified vitamin deficiency Post-viral cough syndrome Primary hypertension ([facility])- Primary Unspecified essential hypertension Allergic rhinitis, unspecified Acute cough Morbid obesity ([facility]) Morbid obesity Former cigarette smoker Personal history of tobacco use, presenting hazards to health Toxic metabolic encephalopathy- Primary Hemiparesis, right ([facility]) Unspecified hemiplegia affecting unspecified side Acute respiratory failure with hypoxia ([facility]) Heart murmur Undiagnosed cardiac murmurs Primary hypertension ([facility] Unspecified essential hypertension Morbid obesity ([facility]) Morbid obesity Bipolar disorder with severe depression ([facility]) Slurred speech Other speech disturbance Bilateral lower extremity edema- Primary Primary hypertension ([facility]) Unspecified essential hypertension Lower extremity edema Edema Essential (primary) hypertension ([facility]) Unspecified essential hypertension Gastro-esophageal reflux disease without esophagitis Allergic rhinitis, unspecified Bilateral lower extremity edema- Primary Morbid (severe) obesity due to excess calories ([facility]) Body mass index (BMI) 45.0-49.9, adult ([facility]) Pre-diabetes Other abnormal glucose Bilateral lower extremity edema- Primary Essential (primary) hypertension ([facility]) Unspecified essential hypertension Allergic rhinitis, unspecified OSMANY (obstructive sleep apnea) Obstructive sleep apnea (adult) (pediatric) Primary hypertension ([facility]) Unspecified essential hypertension Morbid obesity ([facility]) Morbid obesity Acute cystitis without hematuria- Primary Tobacco dependence Tobacco use disorder Needs flu shot Need for prophylactic vaccination and inoculation against influenza Morbid obesity ([facility]) Morbid obesity Well woman exam with routine gynecological exam- Primary Routine gynecological examination Morbid obesity ([facility]) Morbid obesity Essential (primary) hypertension ([facility]) Unspecified essential hypertension Allergic rhinitis, unspecified documented in this encounter [facility] HealthcareEvaluation note* Diagnosis Left foot pain- Primary Pain in soft tissues of limb Primary hypertension ([facility]) Unspecified essential hypertension Class 3 severe obesity due to excess calories without serious comorbidity with body mass index (BMI) of 45.0 to 49.9 in adult ([facility]) Encounter for annual wellness visit (AWV) in Medicare patient- Primary OSMANY (obstructive sleep apnea) Obstructive sleep apnea (adult) (pediatric) Chronic pain disorder Chronic pain syndrome Gastroesophageal reflux disease, unspecified whether esophagitis present Overactive bladder Hypertonicity of bladder Lower extremity edema Edema Pre-diabetes Other abnormal glucose Morbid obesity ([facility]) Morbid obesity Yeast infection of the skin Candidiasis of skin and nails Tobacco dependence Tobacco use disorder Mood disorder ([facility]) Unspecified episodic mood disorder Primary hypertension ([facility]) Unspecified essential hypertension Left hip pain Pain in joint, pelvic region and thigh Open wound of anterior abdominal wall, initial encounter Primary hypertension ([facility]/HCC)- Primary Unspecified essential hypertension Yeast infection of the skin Candidiasis of skin and nails Morbid obesity ([facility]/HCC) Morbid obesity Primary hypertension ([facility]/H[facility])- Primary Unspecified essential hypertension Encounter for screening mammogram for malignant neoplasm of breast Gastroesophageal reflux disease, unspecified whether esophagitis present Acute gout of right foot, unspecified cause Osteoporosis, unspecified osteoporosis type, unspecified pathological fracture presence ([facility]) Morbid obesity ([facility]) Morbid obesity Pre-diabetes Other abnormal glucose Anemia, unspecified type Vitamin deficiency Unspecified vitamin deficiency Post-viral cough syndrome Primary hypertension ([facility])- Primary Unspecified essential hypertension Allergic rhinitis, unspecified Acute cough Morbid obesity ([facility]) Morbid obesity Former cigarette smoker Personal history of tobacco use, presenting hazards to health Toxic metabolic encephalopathy- Primary Hemiparesis, right ([facility]) Unspecified hemiplegia affecting unspecified side Acute respiratory failure with hypoxia ([facility]) Heart murmur Undiagnosed cardiac murmurs Primary hypertension ([facility] Unspecified essential hypertension Morbid obesity ([facility]) Morbid obesity Bipolar disorder with severe depression ([facility]) Slurred speech Other speech disturbance Bilateral lower extremity edema- Primary Primary hypertension ([facility]) Unspecified essential hypertension Lower extremity edema Edema Essential (primary) hypertension ([facility]) Unspecified essential hypertension Gastro-esophageal reflux disease without esophagitis Allergic rhinitis, unspecified Bilateral lower extremity edema- Primary Morbid (severe) obesity due to excess calories ([facility]) Body mass index (BMI) 45.0-49.9, adult ([facility]) Pre-diabetes Other abnormal glucose Bilateral lower extremity edema- Primary Essential (primary) hypertension ([facility]/HCC) Unspecified essential hypertension Allergic rhinitis, unspecified OSMANY (obstructive sleep apnea) Obstructive sleep apnea (adult) (pediatric) Primary hypertension ([facility]) Unspecified essential hypertension Morbid obesity ([facility]) Morbid obesity Acute cystitis without hematuria- Primary Tobacco dependence Tobacco use disorder Needs flu shot Need for prophylactic vaccination and inoculation against influenza Morbid obesity (CMS/HCC) Morbid obesity Well woman exam with routine gynecological exam- Primary Routine gynecological examination Morbid obesity ([facility]/HCC) Morbid obesity Allergic rhinitis, unspecified documented in this encounter [facility]* Diagnosis Left foot pain- Primary Pain in soft tissues of limb Primary hypertension ([facility]) Unspecified essential hypertension Class 3 severe obesity due to excess calories without serious comorbidity with body mass index (BMI) of 45.0 to 49.9 in adult ([facility]) Encounter for annual wellness visit (AWV) in Medicare patient- Primary OSMANY (obstructive sleep apnea) Obstructive sleep apnea (adult) (pediatric) Chronic pain disorder Chronic pain syndrome Gastroesophageal reflux disease, unspecified whether esophagitis present Overactive bladder Hypertonicity of bladder Lower extremity edema Edema Pre-diabetes Other abnormal glucose Morbid obesity ([facility]) Morbid obesity Yeast infection of the skin Candidiasis of skin and nails Tobacco dependence Tobacco use disorder Mood disorder ([facility] Unspecified episodic mood disorder Primary hypertension ([facility]) Unspecified essential hypertension Left hip pain Pain in joint, pelvic region and thigh Open wound of anterior abdominal wall, initial encounter Primary hypertension ([facility])- Primary Unspecified essential hypertension Yeast infection of the skin Candidiasis of skin and nails Morbid obesity ([facility]) Morbid obesity Primary hypertension ([facility])- Primary Unspecified essential hypertension Encounter for screening mammogram for malignant neoplasm of breast Gastroesophageal reflux disease, unspecified whether esophagitis present Acute gout of right foot, unspecified cause Osteoporosis, unspecified osteoporosis type, unspecified pathological fracture presence ([facility]) Morbid obesity ([facility]) Morbid obesity Pre-diabetes Other abnormal glucose Anemia, unspecified type Vitamin deficiency Unspecified vitamin deficiency Post-viral cough syndrome Primary hypertension ([facility])- Primary Unspecified essential hypertension Allergic rhinitis, unspecified Acute cough Morbid obesity ([facility]) Morbid obesity Former cigarette smoker Personal history of tobacco use, presenting hazards to health Toxic metabolic encephalopathy- Primary Hemiparesis, right ([facility]) Unspecified hemiplegia affecting unspecified side Acute respiratory failure with hypoxia ([facility]) Heart murmur Undiagnosed cardiac murmurs Primary hypertension ([facility] Unspecified essential hypertension Morbid obesity ([facility]) Morbid obesity Bipolar disorder with severe depression ([facility]) Slurred speech Other speech disturbance Bilateral lower extremity edema- Primary Primary hypertension ([facility]/HCC) Unspecified essential hypertension Lower extremity edema Edema Essential (primary) hypertension ([facility]) Unspecified essential hypertension Gastro-esophageal reflux disease without esophagitis Allergic rhinitis, unspecified Bilateral lower extremity edema- Primary Morbid (severe) obesity due to excess calories ([facility]) Body mass index (BMI) 45.0-49.9, adult ([facility]) Pre-diabetes Other abnormal glucose Bilateral lower extremity edema- Primary Essential (primary) hypertension ([facility]) Unspecified essential hypertension Allergic rhinitis, unspecified OSMANY (obstructive sleep apnea) Obstructive sleep apnea (adult) (pediatric) Primary hypertension ([facility]) Unspecified essential hypertension Morbid obesity ([facility]) Morbid obesity Acute cystitis without hematuria- Primary Tobacco dependence Tobacco use disorder Needs flu shot Need for prophylactic vaccination and inoculation against influenza Morbid obesity ([facility]) Morbid obesity Well woman exam with routine gynecological exam- Primary Routine gynecological examination Morbid obesity ([facility]) Morbid obesity Yeast infection of the skin Candidiasis of skin and nails documented in this encounter [facility] note* Diagnosis Left foot pain- Primary Pain in soft tissues of limb Primary hypertension ([facility]) Unspecified essential hypertension Class 3 severe obesity due to excess calories without serious comorbidity with body mass index (BMI) of 45.0 to 49.9 in adult ([facility]) Encounter for annual wellness visit (AWV) in Medicare patient- Primary OSMANY (obstructive sleep apnea) Obstructive sleep apnea (adult) (pediatric) Chronic pain disorder Chronic pain syndrome Gastroesophageal reflux disease, unspecified whether esophagitis present Overactive bladder Hypertonicity of bladder Lower extremity edema Edema Pre-diabetes Other abnormal glucose Morbid obesity ([facility]) Morbid obesity Yeast infection of the skin Candidiasis of skin and nails Tobacco dependence Tobacco use disorder Mood disorder ([facility]) Unspecified episodic mood disorder Primary hypertension ([facility]) Unspecified essential hypertension Left hip pain Pain in joint, pelvic region and thigh Open wound of anterior abdominal wall, initial encounter Primary hypertension ([facility])- Primary Unspecified essential hypertension Yeast infection of the skin Candidiasis of skin and nails Morbid obesity ([facility]) Morbid obesity Primary hypertension ([facility])- Primary Unspecified essential hypertension Encounter for screening mammogram for malignant neoplasm of breast Gastroesophageal reflux disease, unspecified whether esophagitis present Acute gout of right foot, unspecified cause Osteoporosis, unspecified osteoporosis type, unspecified pathological fracture presence ([facility]) Morbid obesity ([facility]) Morbid obesity Pre-diabetes Other abnormal glucose Anemia, unspecified type Vitamin deficiency Unspecified vitamin deficiency Post-viral cough syndrome Primary hypertension ([facility])- Primary Unspecified essential hypertension Allergic rhinitis, unspecified Acute cough Morbid obesity ([facility]) Morbid obesity Former cigarette smoker Personal history of tobacco use, presenting hazards to health Toxic metabolic encephalopathy- Primary Hemiparesis, right ([facility]) Unspecified hemiplegia affecting unspecified side Acute respiratory failure with hypoxia ([facility]) Heart murmur Undiagnosed cardiac murmurs Primary hypertension ([facility] Unspecified essential hypertension Morbid obesity ([facility]) Morbid obesity Bipolar disorder with severe depression ([facility]) Slurred speech Other speech disturbance Bilateral lower extremity edema- Primary Primary hypertension ([facility]) Unspecified essential hypertension Lower extremity edema Edema Essential (primary) hypertension ([facility]) Unspecified essential hypertension Gastro-esophageal reflux disease without esophagitis Allergic rhinitis, unspecified Bilateral lower extremity edema- Primary Morbid (severe) obesity due to excess calories ([facility]) Body mass index (BMI) 45.0-49.9, adult ([facility]) Pre-diabetes Other abnormal glucose Bilateral lower extremity edema- Primary Essential (primary) hypertension ([facility]) Unspecified essential hypertension Allergic rhinitis, unspecified OSMANY (obstructive sleep apnea) Obstructive sleep apnea (adult) (pediatric) Primary hypertension ([facility]) Unspecified essential hypertension Morbid obesity ([facility]) Morbid obesity Acute cystitis without hematuria- Primary Tobacco dependence Tobacco use disorder Needs flu shot Need for prophylactic vaccination and inoculation against influenza Morbid obesity ([facility]) Morbid obesity Well woman exam with routine gynecological exam- Primary Routine gynecological examination Morbid obesity ([facility]) Morbid obesity Metabolic encephalopathy- Primary OSMANY (obstructive sleep apnea) Obstructive sleep apnea (adult) (pediatric) Restless leg Restless legs syndrome (RLS) 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 ([facility]) Degeneration of intervertebral disc of lumbar region with discogenic back pain and lower extremity pain Memory change Memory loss documented in this encounter [facility] HealthcareEvaluation note* Diagnosis Left foot pain- Primary Pain in soft tissues of limb Primary hypertension ([facility]) Unspecified essential hypertension Class 3 severe obesity due to excess calories without serious comorbidity with body mass index (BMI) of 45.0 to 49.9 in adult ([facility]) Encounter for annual wellness visit (AWV) in Medicare patient- Primary OSMANY (obstructive sleep apnea) Obstructive sleep apnea (adult) (pediatric) Chronic pain disorder Chronic pain syndrome Gastroesophageal reflux disease, unspecified whether esophagitis present Overactive bladder Hypertonicity of bladder Lower extremity edema Edema Pre-diabetes Other abnormal glucose Morbid obesity ([facility]) Morbid obesity Yeast infection of the skin Candidiasis of skin and nails Tobacco dependence Tobacco use disorder Mood disorder ([facility]/HCC) Unspecified episodic mood disorder Primary hypertension ([facility]) Unspecified essential hypertension Left hip pain Pain in joint, pelvic region and thigh Open wound of anterior abdominal wall, initial encounter Primary hypertension ([facility]/HCC)- Primary Unspecified essential hypertension Yeast infection of the skin Candidiasis of skin and nails Morbid obesity ([facility]) Morbid obesity Primary hypertension ([facility])- Primary Unspecified essential hypertension Encounter for screening mammogram for malignant neoplasm of breast Gastroesophageal reflux disease, unspecified whether esophagitis present Acute gout of right foot, unspecified cause Osteoporosis, unspecified osteoporosis type, unspecified pathological fracture presence ([facility]) Morbid obesity ([facility]) Morbid obesity Pre-diabetes Other abnormal glucose Anemia, unspecified type Vitamin deficiency Unspecified vitamin deficiency Post-viral cough syndrome Primary hypertension ([facility])- Primary Unspecified essential hypertension Allergic rhinitis, unspecified Acute cough Morbid obesity ([facility]) Morbid obesity Former cigarette smoker Personal history of tobacco use, presenting hazards to health Toxic metabolic encephalopathy- Primary Hemiparesis, right ([facility]) Unspecified hemiplegia affecting unspecified side Acute respiratory failure with hypoxia ([facility]) Heart murmur Undiagnosed cardiac murmurs Primary hypertension ([facility] Unspecified essential hypertension Morbid obesity ([facility]) Morbid obesity Bipolar disorder with severe depression ([facility]) Slurred speech Other speech disturbance Bilateral lower extremity edema- Primary Primary hypertension ([facility]/HCC) Unspecified essential hypertension Lower extremity edema Edema Essential (primary) hypertension ([facility]) Unspecified essential hypertension Gastro-esophageal reflux disease without esophagitis Allergic rhinitis, unspecified Bilateral lower extremity edema- Primary Morbid (severe) obesity due to excess calories ([facility]) Body mass index (BMI) 45.0-49.9, adult ([facility]) Pre-diabetes Other abnormal glucose Bilateral lower extremity edema- Primary Essential (primary) hypertension ([facility]) Unspecified essential hypertension Allergic rhinitis, unspecified OSMANY (obstructive sleep apnea) Obstructive sleep apnea (adult) (pediatric) Primary hypertension ([facility]) Unspecified essential hypertension Morbid obesity ([facility]) Morbid obesity Acute [...] Restless legs syndrome (RLS) 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 HealthcareEvaluation note* Diagnosis Left foot pain- Primary Pain in soft tissues of limb Primary hypertension ([facility]) Unspecified essential hypertension Class 3 severe obesity due to excess calories without serious comorbidity with body mass index (BMI) of 45.0 to 49.9 in adult ([facility]) Encounter for annual wellness visit (AWV) in Medicare patient- Primary OSMANY (obstructive sleep apnea) Obstructive sleep apnea (adult) (pediatric) Chronic pain disorder Chronic pain syndrome Gastroesophageal reflux disease, unspecified whether esophagitis present Overactive bladder Hypertonicity of bladder Lower extremity edema Edema Pre-diabetes Other abnormal glucose Morbid obesity ([facility]) Morbid obesity Yeast infection of the skin Candidiasis of skin and nails Tobacco dependence Tobacco use disorder Mood disorder ([facility]) Unspecified episodic mood disorder Primary hypertension ([facility]) Unspecified essential hypertension Left hip pain Pain in joint, pelvic region and thigh Open wound of anterior abdominal wall, initial encounter Primary hypertension ([facility]/HCC)- Primary Unspecified essential hypertension Yeast infection of the skin Candidiasis of skin and nails Morbid obesity ([facility]) Morbid obesity Primary hypertension ([facility])- Primary Unspecified essential hypertension Encounter for screening mammogram for malignant neoplasm of breast Gastroesophageal reflux disease, unspecified whether esophagitis present Acute gout of right foot, unspecified cause Osteoporosis, unspecified osteoporosis type, unspecified pathological fracture presence ([facility]) Morbid obesity ([facility]) Morbid obesity Pre-diabetes Other abnormal glucose Anemia, unspecified type Vitamin deficiency Unspecified vitamin deficiency Post-viral cough syndrome Primary hypertension ([facility])- Primary Unspecified essential hypertension Allergic rhinitis, unspecified Acute cough Morbid obesity ([facility]) Morbid obesity Former cigarette smoker Personal history of tobacco use, presenting hazards to health Toxic metabolic encephalopathy- Primary Hemiparesis, right ([facility]) Unspecified hemiplegia affecting unspecified side Acute respiratory failure with hypoxia ([facility]) Heart murmur Undiagnosed cardiac murmurs Primary hypertension ([facility] Unspecified essential hypertension Morbid obesity ([facility]) Morbid obesity Bipolar disorder with severe depression ([facility]) Slurred speech Other speech disturbance Bilateral lower extremity edema- Primary Primary hypertension ([facility]) Unspecified essential hypertension Lower extremity edema Edema Essential (primary) hypertension ([facility]) Unspecified essential hypertension Gastro-esophageal reflux disease without esophagitis Allergic rhinitis, unspecified Bilateral lower extremity edema- Primary Morbid (severe) obesity due to excess calories ([facility]) Body mass index (BMI) 45.0-49.9, adult ([facility]) Pre-diabetes Other abnormal glucose Bilateral lower extremity edema- Primary Essential (primary) hypertension ([facility]) Unspecified essential hypertension Allergic rhinitis, unspecified OSMANY (obstructive sleep apnea) Obstructive sleep apnea (adult) (pediatric) Primary hypertension ([facility]) Unspecified essential hypertension Morbid obesity ([facility]) Morbid obesity Acute cystitis without hematuria- Primary Tobacco dependence Tobacco use disorder Needs flu shot Need for prophylactic vaccination and inoculation against influenza Morbid obesity ([facility]) Morbid obesity Well woman exam with routine gynecological exam- Primary Routine gynecological examination Morbid obesity ([facility]) Morbid obesity Altered mental status, unspecified altered mental status type- Primary Memory change Memory loss Concentration deficit 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 ([facility]) PTSD (post-traumatic stress disorder) ([facility]) Posttraumatic stress disorder Bipolar affective disorder, remission status unspecified ([facility]) Family history of [...] Pre-diabetes Other abnormal glucose Morbid obesity ([facility]) Morbid obesity Yeast infection of the skin Candidiasis of skin and nails Tobacco dependence Tobacco use disorder Mood disorder ([facility]) Unspecified episodic mood disorder Primary hypertension ([facility]) Unspecified essential hypertension Left hip pain Pain in joint, pelvic region and thigh Open wound of anterior abdominal wall, initial encounter Primary hypertension ([facility])- Primary Unspecified essential hypertension Yeast infection of the skin Candidiasis of skin and nails Morbid obesity ([facility]) Morbid obesity Primary hypertension ([facility])- Primary Unspecified essential hypertension Allergic rhinitis, unspecified Acute cough Morbid obesity ([facility]) Morbid obesity Former cigarette smoker Personal history of tobacco use, presenting hazards to health Toxic metabolic encephalopathy- Primary Hemiparesis, right ([facility]) Unspecified hemiplegia affecting unspecified side Acute respiratory failure with hypoxia ([facility]) Heart murmur Undiagnosed cardiac murmurs Primary hypertension ([facility] Unspecified essential hypertension Morbid obesity ([facility]) Morbid obesity Bipolar disorder with severe depression ([facility]) Slurred speech Other speech disturbance Bilateral lower extremity edema- Primary Primary hypertension ([facility]) Unspecified essential hypertension Lower extremity edema Edema Essential (primary) hypertension ([facility]) Unspecified essential hypertension Gastro-esophageal reflux disease without esophagitis Allergic rhinitis, unspecified Bilateral lower extremity edema- Primary Morbid (severe) obesity due to excess calories ([facility]) Body mass index (BMI) 45.0-49.9, adult ([facility]) Pre-diabetes Other abnormal glucose Bilateral lower extremity edema- Primary Essential (primary) hypertension ([facility]) Unspecified essential hypertension Allergic rhinitis, unspecified OSMANY (obstructive sleep apnea) Obstructive sleep apnea (adult) (pediatric) Primary hypertension ([facility]) Unspecified essential hypertension Morbid obesity ([facility]) Morbid obesity Acute cystitis without hematuria- Primary Tobacco dependence Tobacco use disorder Needs flu shot Need for prophylactic vaccination and inoculation against influenza Morbid obesity ([facility]) Morbid obesity Well woman exam with routine gynecological exam- Primary Routine gynecological examination Morbid obesity ([facility]) Morbid obesity Restless leg Restless legs syndrome (RLS) Metabolic encephalopathy- Primary OSMANY (obstructive sleep apnea) Obstructive sleep apnea (adult) (pediatric) Morbid obesity ([facility]) Morbid obesity Bilateral lower extremity edema Tobacco dependence Tobacco use disorder Bipolar disorder with severe depression ([facility]) At risk for [...] Pre-diabetes Other abnormal glucose Morbid obesity ([facility]) Morbid obesity Yeast infection of the skin Candidiasis of skin and nails Tobacco dependence Tobacco use disorder Mood disorder ([facility]) Unspecified episodic mood disorder Primary hypertension ([facility]) Unspecified essential hypertension Left hip pain Pain in joint, pelvic region and thigh Open wound of anterior abdominal wall, initial encounter Primary hypertension ([facility])- Primary Unspecified essential hypertension Yeast infection of the skin Candidiasis of skin and nails Morbid obesity (CMS/HCC) Morbid obesity Primary hypertension ([facility]/HCC)- Primary Unspecified essential hypertension Allergic rhinitis, unspecified Acute cough Morbid obesity ([facility]/HCC) Morbid obesity Former cigarette smoker Personal history of tobacco use, presenting hazards to health Toxic metabolic encephalopathy- Primary Hemiparesis, right ([facility]) Unspecified hemiplegia affecting unspecified side Acute respiratory failure with hypoxia ([facility]) Heart murmur Undiagnosed cardiac murmurs Primary hypertension ([facility]/HCC) Unspecified essential hypertension Morbid obesity ([facility]/HCC) Morbid obesity Bipolar disorder with severe depression ([facility]) Slurred speech Other speech disturbance Bilateral lower extremity edema- Primary Primary hypertension ([facility]/HCC) Unspecified essential hypertension Lower extremity edema Edema Essential (primary) hypertension ([facility]) Unspecified essential hypertension Gastro-esophageal reflux disease without esophagitis Allergic rhinitis, unspecified Bilateral lower extremity edema- Primary Morbid (severe) obesity due to excess calories ([facility]) Body mass index (BMI) 45.0-49.9, adult ([facility]) Pre-diabetes Other abnormal glucose Bilateral lower extremity edema- Primary Essential (primary) hypertension ([facility]/HCC) Unspecified essential hypertension Allergic rhinitis, unspecified OSMANY (obstructive sleep apnea) Obstructive sleep apnea (adult) (pediatric) Primary hypertension ([facility]/HCC) Unspecified essential hypertension Morbid obesity ([facility]) Morbid obesity Acute cystitis without hematuria- Primary Tobacco dependence Tobacco use disorder Needs flu shot Need for prophylactic vaccination and inoculation against influenza Morbid obesity (CMS/HCC) Morbid obesity Well woman exam with routine gynecological exam- Primary Routine gynecological examination Morbid obesity ([facility]/HCC) Morbid obesity Metabolic encephalopathy- Primary OSMANY (obstructive sleep apnea) Obstructive sleep apnea (adult) (pediatric) Morbid obesity ([facility]/HCC) Morbid obesity Bilateral lower extremity edema Tobacco dependence Tobacco use disorder Bipolar disorder with severe depression ([facility]) At risk for polypharmacy Anxiety Anxiety state, unspecified Primary hypertension ([facility]) Unspecified essential hypertension Right bundle branch block (RBBB) determined by electrocardiography documented in this encounter [facility]* Diagnosis Yeast infection of the skin- Primary Candidiasis of skin and nails documented in this encounter [facility]* Diagnosis 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 HealthcareEvaluation note* Diagnosis Bilateral lower extremity edema- Primary Essential (primary) hypertension (CMS/HCC) Unspecified essential hypertension Allergic rhinitis, unspecified OSMANY (obstructive sleep apnea) Obstructive sleep apnea (adult) (pediatric) Primary hypertension (CMS/HCC) Unspecified essential hypertension Morbid obesity (CMS/HCC) Morbid obesity documented in this encounter [facility] HealthcareEvaluation note* Diagnosis Lower extremity edema Edema documented in this encounter [facility] HealthcareEvaluation note* Diagnosis Encounter for annual wellness [...] unspecified side Acute respiratory failure with hypoxia (CMS/[facility]) Heart murmur Undiagnosed [...] (severe) obesity due to excess calories ([facility]) Body mass index (BMI) 45.0-49.9, adult ([facility]) Pre-diabetes Other abnormal glucose Bilateral lower extremity edema- Primary Essential (primary) hypertension ([facility]) Unspecified essential hypertension Allergic rhinitis, unspecified OSMANY (obstructive sleep apnea) Obstructive sleep apnea (adult) (pediatric) Primary hypertension ([facility]) Unspecified essential hypertension Morbid obesity ([facility]) Morbid obesity Acute cystitis without hematuria- Primary Tobacco dependence Tobacco use disorder Needs flu shot Need for prophylactic vaccination and inoculation against influenza Morbid obesity ([facility]) Morbid obesity Well woman exam with routine gynecological exam- Primary Routine gynecological examination Morbid obesity ([facility]) Morbid obesity Metabolic encephalopathy- Primary OSMANY (obstructive sleep apnea) Obstructive sleep apnea (adult) (pediatric) Morbid obesity ([facility]) Morbid obesity Bilateral lower extremity edema Tobacco dependence Tobacco use disorder Bipolar disorder with severe depression ([facility]) At risk for polypharmacy Anxiety Anxiety state, unspecified Primary hypertension ([facility]) Unspecified essential hypertension Right bundle branch block (RBBB) determined by electrocardiography Metabolic encephalopathy- Primary Memory change Memory loss Altered mental status, unspecified altered mental status type Concentration deficit PTSD (post-traumatic stress disorder) ([facility]) Posttraumatic stress disorder Bipolar affective disorder, remission status unspecified ([facility]) Family history of dementia Family history of other neurological diseases 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[facility]) OSMANY (obstructive sleep apnea) Obstructive sleep apnea (adult) (pediatric) documented in this encounter [facility] HealthcareEvaluation note* Diagnosis Encounter for annual wellness visit (AWV) in Medicare patient- Primary OSMANY (obstructive sleep apnea) Obstructive sleep apnea (adult) (pediatric) Chronic pain disorder Chronic pain syndrome Gastroesophageal reflux disease, unspecified whether esophagitis present Overactive bladder Hypertonicity of bladder Lower extremity edema Edema Pre-diabetes Other abnormal glucose Morbid obesity ([facility]) Morbid obesity Yeast infection of the skin Candidiasis of skin and nails Tobacco dependence Tobacco use disorder Mood disorder ([facility]) Unspecified episodic mood disorder Primary hypertension ([facility]) Unspecified essential hypertension Left hip pain Pain in joint, pelvic region and thigh Open wound of anterior abdominal wall, initial encounter Primary hypertension ([facility])- Primary Unspecified essential hypertension Yeast infection of the skin Candidiasis of skin and nails Morbid obesity ([facility]) Morbid obesity Primary hypertension ([facility])- Primary Unspecified essential hypertension Allergic rhinitis, unspecified Acute cough Morbid obesity ([facility]) Morbid obesity Former cigarette smoker Personal history of tobacco use, presenting hazards to health Toxic metabolic encephalopathy- Primary Hemiparesis, right ([facility]) Unspecified hemiplegia affecting unspecified side Acute respiratory failure with hypoxia ([facility]) Heart murmur Undiagnosed cardiac murmurs Primary hypertension ([facility] Unspecified essential hypertension Morbid obesity ([facility] Morbid obesity Bipolar disorder with severe depression ([facility]) Slurred speech Other speech disturbance Bilateral lower extremity edema- Primary Primary hypertension ([facility]) Unspecified essential hypertension Lower extremity edema Edema Essential (primary) hypertension ([facility]) Unspecified essential hypertension Gastro-esophageal reflux disease without esophagitis Allergic rhinitis, unspecified Bilateral lower extremity edema- Primary Morbid (severe) obesity due to excess calories ([facility]) Body mass index (BMI) 45.0-49.9, adult ([facility]) Pre-diabetes Other abnormal glucose Bilateral lower extremity edema- Primary Essential (primary) hypertension ([facility]) Unspecified essential hypertension Allergic rhinitis, unspecified OSMANY (obstructive sleep apnea) Obstructive sleep apnea (adult) (pediatric) Primary hypertension ([facility]) Unspecified essential hypertension Morbid obesity ([facility]) Morbid obesity Acute cystitis without hematuria- Primary Tobacco dependence Tobacco use disorder Needs flu shot Need for prophylactic vaccination and inoculation against influenza Morbid obesity ([facility]) Morbid obesity Well woman exam with routine gynecological exam- Primary Routine gynecological examination Morbid obesity ([facility]) Morbid obesity Metabolic encephalopathy- Primary OSMANY (obstructive sleep apnea) Obstructive sleep apnea (adult) (pediatric) Morbid obesity ([facility]) Morbid obesity Bilateral lower extremity edema Tobacco dependence Tobacco use disorder Bipolar disorder with severe depression ([facility]) At risk for polypharmacy Anxiety Anxiety state, unspecified Primary hypertension ([facility]) Unspecified essential hypertension [...] Pre-diabetes Other abnormal glucose Morbid obesity ([facility]) Morbid obesity Yeast infection of the skin Candidiasis of skin and nails Tobacco dependence Tobacco use disorder Mood disorder ([facility]) Unspecified episodic mood disorder Primary hypertension ([facility]/HCC) Unspecified essential hypertension Left hip pain Pain in joint, pelvic region and thigh Open wound of anterior abdominal wall, initial encounter Primary hypertension ([facility]/HCC)- Primary Unspecified essential hypertension Yeast infection of the skin Candidiasis of skin and nails Morbid obesity ([facility]/HCC) Morbid obesity Primary hypertension ([facility]/HCC)- Primary Unspecified essential hypertension Allergic rhinitis, unspecified Acute cough Morbid obesity (CMS/HCC) Morbid obesity Former cigarette smoker Personal history of tobacco use, presenting hazards to health Toxic metabolic encephalopathy- Primary Hemiparesis, right (CMS/[facility]) Unspecified hemiplegia affecting unspecified side Acute respiratory failure with hypoxia ([facility]) Heart murmur Undiagnosed cardiac murmurs Primary hypertension ([facility] Unspecified essential hypertension Morbid obesity ([facility] Morbid obesity Bipolar disorder with severe depression ([facility]) Slurred speech Other speech disturbance Bilateral lower extremity edema- Primary Primary hypertension ([facility]/HCC) Unspecified essential hypertension Lower extremity edema Edema Essential (primary) hypertension ([facility]) Unspecified essential hypertension Gastro-esophageal reflux disease without esophagitis Allergic rhinitis, unspecified Bilateral lower extremity edema- Primary Morbid (severe) obesity due to excess calories ([facility]) Body mass index (BMI) 45.0-49.9, adult ([facility]) Pre-diabetes Other abnormal glucose Bilateral lower extremity edema- Primary Essential (primary) hypertension ([facility]/HCC) Unspecified essential hypertension Allergic rhinitis, unspecified OSMANY (obstructive sleep apnea) Obstructive sleep apnea (adult) (pediatric) Primary hypertension ([facility]) Unspecified essential hypertension Morbid obesity ([facility]) Morbid obesity Acute cystitis without hematuria- Primary Tobacco dependence Tobacco use disorder Needs flu shot Need for prophylactic vaccination and inoculation against influenza Morbid obesity ([facility]/HCC) Morbid obesity Well woman exam with routine gynecological exam- Primary Routine gynecological examination Morbid obesity ([facility]/HCC) Morbid obesity Metabolic encephalopathy- Primary OSMANY (obstructive sleep apnea) Obstructive sleep apnea (adult) (pediatric) Morbid obesity ([facility]) Morbid obesity Bilateral lower extremity edema Tobacco dependence Tobacco use disorder Bipolar disorder with severe depression ([facility]) At risk for polypharmacy Anxiety Anxiety state, unspecified Primary hypertension ([facility]) Unspecified essential hypertension Right bundle branch block (RBBB) determined by electrocardiography Primary hypertension ([facility])- Primary Unspecified essential hypertension Chronic kidney disease, stage 3a (HCC) ([facility]) Morbid (severe) obesity due to excess calories ([facility]) Body mass index (BMI) 45.0-49.9, adult ([facility]/HCC) OSMANY (obstructive sleep apnea) Obstructive sleep apnea (adult) (pediatric) Hemiparesis, right (CMS/HCC) Unspecified hemiplegia affecting unspecified side Gastroesophageal reflux disease, unspecified whether esophagitis present Metabolic encephalopathy Essential (primary) hypertension (CMS/HCC) Unspecified essential hypertension Allergic rhinitis, unspecified Gastro-esophageal reflux disease without esophagitis Bilateral lower extremity edema documented in this encounter [facility] HealthcareEvaluation note* Diagnosis Encounter for annual [...] Unspecified episodic mood disorder Primary hypertension ([facility]) Unspecified essential hypertension Left hip pain Pain in joint, pelvic region and thigh Open wound of anterior abdominal wall, initial encounter Primary hypertension (CMS/HCC)- Primary Unspecified essential hypertension Yeast infection of the skin Candidiasis of skin and nails Morbid obesity ([facility]/HCC) Morbid obesity Primary hypertension ([facility]/HCC)- Primary Unspecified essential hypertension Allergic rhinitis, unspecified Acute cough Morbid obesity ([facility]/HCC) Morbid obesity Former cigarette smoker Personal history of tobacco use, presenting hazards to health Toxic metabolic encephalopathy- Primary Hemiparesis, right ([facility]) Unspecified hemiplegia affecting unspecified side Acute respiratory failure with hypoxia ([facility]) Heart murmur Undiagnosed cardiac murmurs Primary hypertension (CMS/HCC) Unspecified essential hypertension Morbid obesity (CMS/HCC) Morbid obesity Bipolar disorder with severe depression ([facility]) Slurred speech Other speech disturbance Bilateral lower extremity edema- Primary Primary hypertension (CMS/HCC) Unspecified essential hypertension Lower extremity edema Edema Essential (primary) hypertension (CMS/HCC) Unspecified essential hypertension Gastro-esophageal reflux disease without esophagitis Allergic rhinitis, unspecified Bilateral lower extremity edema- Primary Morbid (severe) obesity due to excess calories ([facility]) Body mass index (BMI) 45.0-49.9, adult ([facility]) Pre-diabetes Other abnormal glucose Bilateral lower extremity edema- Primary Essential (primary) hypertension ([facility]/HCC) Unspecified essential hypertension Allergic rhinitis, unspecified OSMANY (obstructive sleep apnea) Obstructive sleep apnea (adult) (pediatric) Primary hypertension ([facility]) Unspecified essential hypertension Morbid obesity ([facility]) Morbid obesity Acute cystitis without hematuria- Primary Tobacco dependence Tobacco use disorder Needs flu shot Need for prophylactic vaccination and inoculation against influenza Morbid obesity ([facility]/HCC) Morbid obesity Well woman exam with routine gynecological exam- Primary Routine gynecological examination Morbid obesity ([facility]/HCC) Morbid obesity Metabolic encephalopathy- Primary OSMANY (obstructive sleep apnea) Obstructive sleep apnea (adult) (pediatric) Morbid obesity ([facility]/HCC) Morbid obesity Bilateral lower extremity edema Tobacco dependence Tobacco use disorder Bipolar disorder with severe depression ([facility]) At risk for polypharmacy Anxiety Anxiety state, unspecified Primary hypertension ([facility]) Unspecified essential hypertension Right bundle branch block (RBBB) determined by electrocardiography Primary hypertension ([facility])- Primary Unspecified essential hypertension Chronic kidney disease, stage 3a ([facility]) ([facility]) Morbid (severe) obesity due to excess calories ([facility]) Body mass index (BMI) 45.0-49.9, adult ([facility]) OSMANY (obstructive sleep apnea) Obstructive sleep apnea (adult) (pediatric) Hemiparesis, right ([facility]) Unspecified hemiplegia affecting unspecified side Gastroesophageal reflux disease, unspecified whether esophagitis present Metabolic encephalopathy Essential (primary) hypertension ([facility]) Unspecified essential hypertension Allergic rhinitis, unspecified Gastro-esophageal reflux disease without esophagitis Bilateral lower extremity edema 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 ([facility])- Primary OSMANY (obstructive [...] Pre-diabetes Other abnormal glucose Morbid obesity ([facility]/HCC) Morbid obesity Yeast infection of the skin Candidiasis of skin and nails Tobacco dependence Tobacco use disorder Mood disorder ([facility]/HCC) Unspecified episodic mood disorder Primary hypertension ([facility]) Unspecified essential hypertension Left hip pain Pain in joint, pelvic region and thigh Open wound of anterior abdominal wall, initial encounter Primary hypertension ([facility]/HCC)- Primary Unspecified essential hypertension Yeast infection of the skin Candidiasis of skin and nails Morbid obesity ([facility]/HCC) Morbid obesity Primary hypertension ([facility]/HCC)- Primary Unspecified essential hypertension Allergic rhinitis, unspecified Acute cough Morbid obesity ([facility]) Morbid obesity Former cigarette smoker Personal history of tobacco use, presenting hazards to health Toxic metabolic encephalopathy- Primary Hemiparesis, right ([facility]) Unspecified hemiplegia affecting unspecified side Acute respiratory failure with hypoxia ([facility]) Heart murmur Undiagnosed cardiac murmurs Primary hypertension ([facility]) Unspecified essential hypertension Morbid obesity ([facility] Morbid obesity Bipolar disorder with severe depression ([facility]) Slurred speech Other speech disturbance Bilateral lower extremity edema- Primary Primary hypertension ([facility]) Unspecified essential hypertension Lower extremity edema Edema Essential (primary) hypertension ([facility]) Unspecified essential hypertension Gastro-esophageal reflux disease without esophagitis Allergic rhinitis, unspecified Bilateral lower extremity edema- Primary Morbid (severe) obesity due to excess calories ([facility]) Body mass index (BMI) 45.0-49.9, adult ([facility]) Pre-diabetes Other abnormal glucose Bilateral lower extremity edema- Primary Essential (primary) hypertension ([facility]) Unspecified essential hypertension Allergic rhinitis, unspecified OSMANY (obstructive sleep apnea) Obstructive sleep apnea (adult) (pediatric) Primary hypertension ([facility]) Unspecified essential hypertension Morbid obesity ([facility]) Morbid obesity Acute cystitis without hematuria- Primary Tobacco dependence Tobacco use disorder Needs flu shot Need for prophylactic vaccination and inoculation against influenza Morbid obesity ([facility]/HCC) Morbid obesity Well woman exam with routine gynecological exam- Primary Routine gynecological examination Morbid obesity ([facility]/HCC) Morbid obesity Metabolic encephalopathy- Primary OSMANY (obstructive sleep apnea) Obstructive sleep apnea (adult) (pediatric) Morbid obesity ([facility]) Morbid obesity Bilateral lower extremity edema Tobacco dependence Tobacco use disorder Bipolar disorder with severe depression ([facility]) At risk for polypharmacy Anxiety Anxiety state, unspecified Primary hypertension ([facility]) Unspecified essential hypertension Right bundle branch block (RBBB) determined by electrocardiography Primary hypertension ([facility])- Primary Unspecified essential [...] syndrome (RLS) documented in this encounter [facility] HealthcareEvaluation note* Diagnosis Encounter for annual [...] (CMS/HCC) Body mass index (BMI) 45.0-49.9, adult ([facility]) Pre-diabetes Other abnormal glucose Bilateral lower extremity edema- Primary Essential (primary) hypertension ([facility]) Unspecified essential hypertension Allergic rhinitis, unspecified OSMANY (obstructive sleep apnea) Obstructive sleep apnea (adult) (pediatric) Primary hypertension ([facility]) Unspecified essential hypertension Morbid obesity ([facility]) Morbid obesity Acute cystitis without hematuria- Primary Tobacco dependence Tobacco use disorder Needs flu shot Need for prophylactic vaccination and inoculation against influenza Morbid obesity ([facility]) Morbid obesity Well woman exam with routine gynecological exam- Primary Routine gynecological examination Morbid obesity ([facility]) Morbid obesity Metabolic encephalopathy- Primary OSMANY (obstructive sleep apnea) Obstructive sleep apnea (adult) (pediatric) Morbid obesity ([facility]) Morbid obesity Bilateral lower extremity edema Tobacco dependence Tobacco use disorder Bipolar disorder with severe depression ([facility]) At risk for polypharmacy Anxiety Anxiety state, unspecified Primary hypertension ([facility]) Unspecified essential hypertension Right bundle branch block (RBBB) determined by electrocardiography Primary hypertension ([facility])- Primary Unspecified essential hypertension Chronic kidney disease, stage 3a (HCC) ([facility]) Morbid (severe) obesity due to excess calories ([facility]) Body mass index (BMI) 45.0-49.9, adult ([facility]) OSMANY (obstructive sleep apnea) Obstructive sleep apnea (adult) (pediatric) Hemiparesis, right ([facility]) Unspecified hemiplegia affecting unspecified side Gastroesophageal reflux disease, unspecified whether esophagitis present Metabolic encephalopathy Essential (primary) hypertension ([facility]) Unspecified essential hypertension Allergic rhinitis, unspecified Gastro-esophageal reflux disease without esophagitis Bilateral lower extremity edema URI, acute- Primary Acute upper respiratory infections of unspecified site documented in this encounter [facility] HealthcareEvaluation note* Diagnosis Encounter for annual wellness visit (AWV) in Medicare patient- Primary OSMANY (obstructive sleep apnea) Obstructive sleep apnea (adult) (pediatric) Chronic pain disorder Chronic pain syndrome Gastroesophageal reflux disease, unspecified whether esophagitis present Overactive bladder Hypertonicity of bladder Lower extremity edema Edema Pre-diabetes Other abnormal glucose Morbid obesity ([facility]) Morbid obesity Yeast infection of the skin Candidiasis of skin and nails Tobacco dependence Tobacco use disorder Mood disorder ([facility]) Unspecified episodic mood disorder Primary hypertension ([facility] Unspecified essential hypertension [...] unspecified side Acute respiratory failure with hypoxia (CMS/[facility]) Heart murmur Undiagnosed [...] (severe) obesity due to excess calories ([facility]) Body mass index (BMI) 45.0-49.9, adult ([facility]) Pre-diabetes Other abnormal glucose Bilateral lower extremity edema- Primary Essential (primary) hypertension (CMS/HCC) Unspecified essential hypertension Allergic rhinitis, unspecified OSMANY (obstructive sleep apnea) Obstructive sleep apnea (adult) (pediatric) Primary hypertension ([facility]/HCC) Unspecified essential hypertension Morbid obesity ([facility]) Morbid obesity Acute cystitis without hematuria- Primary Tobacco dependence Tobacco use disorder Needs flu shot Need for prophylactic vaccination and inoculation against influenza Morbid obesity (CMS/HCC) Morbid obesity Well woman exam with routine gynecological exam- Primary Routine gynecological examination Morbid obesity (CMS/HCC) Morbid obesity Metabolic encephalopathy- Primary OSMANY (obstructive sleep apnea) Obstructive sleep apnea (adult) (pediatric) Morbid obesity ([facility]/HCC) Morbid obesity Bilateral lower extremity edema Tobacco dependence Tobacco use disorder Bipolar disorder with severe depression ([facility]) At risk for polypharmacy Anxiety Anxiety state, unspecified Primary hypertension ([facility]/HCC) Unspecified essential hypertension Right bundle branch block (RBBB) determined by electrocardiography Primary hypertension (CMS/HCC)- Primary Unspecified essential hypertension Chronic kidney disease, stage 3a (HCC) ([facility]) Morbid (severe) obesity due to excess calories ([facility]) Body mass index (BMI) 45.0-49.9, adult ([facility]/HCC) OSMANY (obstructive sleep apnea) Obstructive sleep [...] (CMS/HCC) Concentration deficit documented in this encounter [facility] HealthcareEvaluation note* Diagnosis Encounter for annual wellness [...] CENTER) Unspecified episodic mood disorder Primary hypertension ([facility]/HCC) Unspecified essential hypertension Left hip pain Pain in joint, pelvic region and thigh Open wound of anterior abdominal wall, initial encounter Primary hypertension ([facility]/HCC)- Primary Unspecified essential hypertension Yeast infection of the skin Candidiasis of skin and nails Morbid obesity (CMS/HCC) Morbid obesity Primary hypertension ([facility]/HCC)- Primary Unspecified essential hypertension Allergic rhinitis, unspecified Acute cough Morbid obesity (CMS/HCC) Morbid obesity Former cigarette smoker Personal history of tobacco use, presenting hazards to health Toxic metabolic encephalopathy- Primary Hemiparesis, right (CMS/[facility]) Unspecified hemiplegia affecting unspecified side Acute respiratory failure with hypoxia (CMS/[facility]) Heart murmur Undiagnosed [...] (severe) obesity due to excess calories ([facility]) Body mass index (BMI) 45.0-49.9, adult ([facility]) Pre-diabetes Other abnormal glucose Bilateral lower extremity edema- Primary Essential (primary) hypertension ([facility]) Unspecified essential hypertension Allergic rhinitis, unspecified OSMANY (obstructive sleep apnea) Obstructive sleep apnea (adult) (pediatric) Primary hypertension ([facility]) Unspecified essential hypertension Morbid obesity ([facility]) Morbid obesity Acute cystitis without hematuria- Primary Tobacco dependence Tobacco use disorder Needs flu shot Need for prophylactic vaccination and inoculation against influenza Morbid obesity ([facility]) Morbid obesity Well woman exam with routine gynecological exam- Primary Routine gynecological examination Morbid obesity ([facility]) Morbid obesity Metabolic encephalopathy- Primary OSMANY (obstructive sleep apnea) Obstructive sleep apnea (adult) (pediatric) Morbid obesity ([facility]) Morbid obesity Bilateral lower extremity edema Tobacco dependence Tobacco use disorder Bipolar disorder with severe depression ([facility]) At risk for polypharmacy Anxiety Anxiety state, unspecified Primary hypertension ([facility]) Unspecified essential hypertension Right bundle branch block (RBBB) determined by electrocardiography Primary hypertension ([facility])- Primary Unspecified essential hypertension Chronic kidney disease, stage 3a (HCC) ([facility]) Morbid (severe) obesity due to excess calories ([facility]) Body mass index (BMI) 45.0-49.9, adult ([facility]) OSMANY (obstructive sleep apnea) Obstructive sleep apnea (adult) (pediatric) Hemiparesis, right ([facility]) Unspecified hemiplegia affecting unspecified side Gastroesophageal reflux disease, unspecified whether esophagitis present Metabolic encephalopathy Essential (primary) hypertension ([facility]) Unspecified essential hypertension Allergic rhinitis, unspecified Gastro-esophageal reflux disease without esophagitis Bilateral lower extremity edema Primary hypertension ([facility])- Primary Unspecified essential hypertension Morbid (severe) obesity due to excess calories ([facility] Essential (primary) hypertension ([facility]) Unspecified essential hypertension [...] Pre-diabetes Other abnormal glucose Morbid obesity ([facility]) Morbid obesity Yeast infection of the skin Candidiasis of skin and nails Tobacco dependence Tobacco use disorder Mood disorder ([facility]/HCC) Unspecified episodic mood disorder Primary hypertension ([facility]/HCC) Unspecified essential hypertension Left hip pain Pain in joint, pelvic region and thigh Open wound of anterior abdominal wall, initial encounter Primary hypertension ([facility]/HCC)- Primary Unspecified essential hypertension Yeast infection of the skin Candidiasis of skin and nails Morbid obesity (CMS/HCC) Morbid obesity Primary hypertension (CMS/HCC)- Primary Unspecified essential hypertension Allergic rhinitis, unspecified Acute cough Morbid obesity ([facility]) Morbid obesity Former cigarette smoker Personal history of tobacco use, presenting hazards to health Toxic metabolic encephalopathy- Primary Hemiparesis, right ([facility]) Unspecified hemiplegia affecting unspecified side Acute respiratory failure with hypoxia ([facility]) Heart murmur Undiagnosed cardiac murmurs Primary hypertension ([facility] Unspecified essential hypertension Morbid obesity ([facility]) Morbid obesity Bipolar disorder with severe depression ([facility]) Slurred speech Other speech disturbance Bilateral lower extremity edema- Primary Primary hypertension ([facility]) Unspecified essential hypertension Lower extremity edema Edema Essential (primary) hypertension ([facility]) Unspecified essential hypertension Gastro-esophageal reflux disease without esophagitis Allergic rhinitis, unspecified Bilateral lower extremity edema- Primary Morbid (severe) obesity due to excess calories ([facility]) Body mass index (BMI) 45.0-49.9, adult ([facility]) Pre-diabetes Other abnormal glucose Bilateral lower extremity edema- Primary Essential (primary) hypertension ([facility]/HCC) Unspecified essential hypertension Allergic rhinitis, unspecified OSMANY (obstructive sleep apnea) Obstructive sleep apnea (adult) (pediatric) Primary hypertension ([facility]) Unspecified essential hypertension Morbid obesity ([facility]) Morbid obesity Well woman exam with routine gynecological exam- Primary Routine gynecological examination Morbid obesity ([facility]/HCC) Morbid obesity Metabolic encephalopathy- Primary OSMANY (obstructive sleep apnea) Obstructive sleep apnea (adult) (pediatric) Morbid obesity ([facility]/HCC) Morbid obesity Bilateral lower extremity edema Tobacco dependence Tobacco use disorder Bipolar disorder with severe depression ([facility]) At risk for polypharmacy Anxiety Anxiety state, unspecified Primary hypertension ([facility]/HCC) Unspecified essential hypertension Right bundle branch block (RBBB) determined by electrocardiography Primary hypertension ([facility]/HCC)- Primary Unspecified essential hypertension Chronic kidney disease, stage 3a (HCC) ([facility]) Morbid (severe) obesity [...] hazards to health documented in this encounter [facility] HealthcareEvaluation note* Diagnosis Encounter for annual wellness [...] to excess calories ([facility]) Body mass index (BMI) 45.0-49.9, adult ([facility]) Pre-diabetes Other abnormal glucose Bilateral lower extremity edema- Primary Essential (primary) hypertension Unspecified essential hypertension Allergic rhinitis, unspecified OSMANY (obstructive sleep apnea) Obstructive sleep apnea (adult) (pediatric) Primary hypertension Unspecified essential hypertension Morbid obesity ([facility]) Morbid obesity Well woman exam with routine gynecological exam- Primary Routine gynecological examination Morbid obesity ([facility]) Morbid obesity Metabolic encephalopathy- Primary OSMANY (obstructive sleep apnea) Obstructive sleep apnea (adult) (pediatric) Morbid obesity ([facility]) Morbid obesity Bilateral lower extremity edema Tobacco dependence Tobacco use disorder Bipolar disorder with severe depression ([facility]) At risk for polypharmacy Anxiety Anxiety state, unspecified Primary hypertension Unspecified essential hypertension Right bundle branch block (RBBB) determined by electrocardiography Primary hypertension- Primary Unspecified essential hypertension Chronic kidney disease, stage 3a ([facility]) Morbid (severe) obesity due to excess calories ([facility]) Body mass index (BMI) 45.0-49.9, adult ([facility]) OSMANY (obstructive sleep apnea) Obstructive sleep apnea (adult) (pediatric) Hemiparesis, right ([facility]) Unspecified hemiplegia affecting unspecified side Gastroesophageal reflux disease, unspecified whether esophagitis present Metabolic encephalopathy Essential (primary) hypertension Unspecified essential hypertension Allergic rhinitis, unspecified Gastro-esophageal reflux disease without esophagitis Bilateral lower extremity edema Primary hypertension- Primary Unspecified essential hypertension Morbid (severe) obesity due to excess calories ([facility]) Essential (primary) hypertension Unspecified essential hypertension Allergic rhinitis, unspecified Gastro-esophageal reflux disease without esophagitis Bilateral lower extremity edema Bronchitis Bronchitis, not specified as acute or chronic Primary hypertension- Primary Unspecified essential hypertension Bronchitis Bronchitis, not specified as acute or chronic Bilateral lower extremity edema Morbid (severe) obesity due to excess calories ([facility]) Pre-diabetes Other abnormal glucose Allergic rhinitis, unspecified [...] pathological fracture presence documented in this encounter [facility] HealthcareEvaluation note* Diagnosis Encounter for annual wellness visit (AWV) in Medicare patient- Primary OSMANY (obstructive sleep apnea) Obstructive sleep apnea (adult) (pediatric) Chronic pain disorder Chronic pain syndrome Gastroesophageal reflux disease, unspecified whether esophagitis present Overactive bladder Hypertonicity of bladder Lower extremity edema Edema Pre-diabetes Other abnormal glucose Morbid obesity ([facility]) Morbid obesity Yeast infection of the skin [...] Candidiasis of skin and nails Morbid obesity ([facility]) Morbid obesity Primary hypertension- Primary Unspecified essential hypertension Allergic rhinitis, unspecified Acute cough Morbid obesity ([facility]) Morbid obesity Former cigarette smoker Personal history of tobacco use, presenting hazards to health Toxic metabolic encephalopathy- Primary Hemiparesis, right (HCC) Unspecified hemiplegia affecting unspecified side Acute respiratory failure with hypoxia ([facility]) Heart murmur Undiagnosed cardiac murmurs Primary hypertension Unspecified essential hypertension Morbid obesity ([facility]) Morbid obesity Bipolar disorder with severe depression ([facility]) Slurred speech Other speech disturbance Bilateral lower extremity edema- Primary Primary hypertension Unspecified essential hypertension Lower extremity edema Edema Essential (primary) hypertension Unspecified essential hypertension Gastro-esophageal reflux disease without esophagitis Allergic rhinitis, unspecified Bilateral lower extremity edema- Primary Morbid (severe) obesity due to excess calories ([facility]) Body mass index (BMI) 45.0-49.9, adult ([facility]) Pre-diabetes Other abnormal glucose Bilateral lower extremity edema- Primary Essential (primary) hypertension Unspecified essential hypertension Allergic rhinitis, unspecified OSMANY (obstructive sleep apnea) Obstructive sleep apnea (adult) (pediatric) Primary hypertension Unspecified essential hypertension Morbid obesity ([facility]) Morbid obesity Well woman exam with routine gynecological exam- Primary Routine gynecological examination Morbid obesity ([facility]) Morbid obesity Metabolic encephalopathy- Primary OSMANY (obstructive sleep apnea) Obstructive sleep apnea (adult) (pediatric) Morbid obesity ([facility]) Morbid obesity Bilateral lower extremity edema Tobacco dependence Tobacco use disorder Bipolar disorder with severe depression (HCC) At risk for polypharmacy Anxiety Anxiety state, unspecified Primary hypertension Unspecified essential hypertension Right bundle branch block (RBBB) determined by electrocardiography Primary hypertension- Primary Unspecified essential hypertension Chronic kidney disease, stage 3a ([facility]) Morbid (severe) obesity due to excess calories ([facility]) Body mass index (BMI) 45.0-49.9, adult ([facility]) OSMANY (obstructive sleep apnea) Obstructive sleep apnea (adult) (pediatric) Hemiparesis, right ([facility]) Unspecified hemiplegia affecting unspecified side Gastroesophageal reflux disease, unspecified whether esophagitis present Metabolic encephalopathy Essential (primary) hypertension Unspecified essential hypertension Allergic rhinitis, unspecified Gastro-esophageal reflux disease without esophagitis Bilateral lower extremity edema Primary hypertension- Primary Unspecified essential hypertension Morbid (severe) obesity due to excess calories ([facility]) Essential (primary) hypertension Unspecified essential hypertension Allergic rhinitis, unspecified Gastro-esophageal reflux disease without esophagitis Bilateral lower extremity edema Bronchitis Bronchitis, not specified as acute or chronic Primary hypertension- Primary Unspecified essential hypertension Bronchitis Bronchitis, not specified as acute or chronic Bilateral lower extremity edema Morbid (severe) obesity due to excess calories ([facility]) Pre-diabetes Other abnormal glucose Allergic rhinitis, unspecified [...] Primary osteoarthritis of right knee Morbid obesity ([facility]) Morbid obesity documented in this encounter [facility] HealthcareEvaluation note* Diagnosis Encounter for annual wellness visit (AWV) in Medicare patient- Primary OSMANY (obstructive sleep apnea) Obstructive sleep apnea (adult) (pediatric) Chronic pain disorder Chronic pain syndrome Gastroesophageal reflux disease, unspecified whether esophagitis present Overactive bladder Hypertonicity of bladder Lower extremity edema Edema Pre-diabetes Other abnormal glucose Morbid obesity ([facility]) Morbid obesity Yeast infection of the skin [...] of skin and nails Morbid obesity ([facility]) Morbid obesity Primary hypertension- Primary Unspecified essential hypertension Allergic rhinitis, unspecified Acute cough Morbid obesity ([facility]) Morbid obesity Former cigarette smoker Personal history of tobacco use, presenting hazards to health Toxic metabolic encephalopathy- Primary Hemiparesis, right (HCC) Unspecified hemiplegia affecting unspecified side Acute respiratory failure with hypoxia ([facility]) Heart murmur Undiagnosed cardiac murmurs Primary hypertension Unspecified essential hypertension Morbid obesity ([facility]) Morbid obesity Bipolar disorder with severe depression ([facility]) Slurred speech Other speech disturbance Bilateral lower extremity edema- Primary Primary hypertension Unspecified essential hypertension Lower extremity edema Edema Essential (primary) hypertension Unspecified essential hypertension Gastro-esophageal reflux disease without esophagitis Allergic rhinitis, unspecified Bilateral lower extremity edema- Primary Morbid (severe) obesity due to excess calories ([facility]) Body mass index (BMI) 45.0-49.9, adult ([facility]) Pre-diabetes Other abnormal glucose Bilateral lower extremity edema- Primary Essential (primary) hypertension Unspecified essential hypertension Allergic rhinitis, unspecified OSMANY (obstructive sleep apnea) Obstructive sleep apnea (adult) (pediatric) Primary hypertension Unspecified essential hypertension Morbid obesity ([facility]) Morbid obesity Well woman exam with routine gynecological exam- Primary Routine gynecological examination Morbid obesity ([facility]) Morbid obesity Metabolic encephalopathy- Primary OSMANY (obstructive sleep apnea) Obstructive sleep apnea (adult) (pediatric) Morbid obesity ([facility]) Morbid obesity Bilateral lower extremity edema Tobacco dependence Tobacco use disorder Bipolar disorder with severe depression ([facility]) At risk for polypharmacy Anxiety Anxiety state, unspecified Primary hypertension Unspecified essential hypertension Right bundle branch block (RBBB) determined by electrocardiography Primary hypertension- Primary Unspecified essential hypertension Chronic kidney disease, stage 3a ([facility]) Morbid (severe) obesity due to excess calories ([facility]) Body mass index (BMI) 45.0-49.9, adult ([facility]) OSMANY (obstructive sleep apnea) Obstructive sleep apnea (adult) (pediatric) Hemiparesis, right (HCC) Unspecified hemiplegia affecting unspecified side Gastroesophageal reflux disease, unspecified whether esophagitis present Metabolic encephalopathy Essential (primary) hypertension Unspecified essential hypertension Allergic rhinitis, unspecified Gastro-esophageal reflux disease without esophagitis Bilateral lower extremity edema Primary hypertension- Primary Unspecified essential hypertension Morbid (severe) obesity due to excess calories ([facility]) Essential (primary) hypertension Unspecified essential hypertension Allergic rhinitis, unspecified Gastro-esophageal reflux disease without esophagitis Bilateral lower extremity edema Bronchitis Bronchitis, not specified as acute or chronic Primary hypertension- Primary Unspecified essential hypertension Bronchitis Bronchitis, not specified as acute or chronic Bilateral lower extremity edema Morbid (severe) obesity due to excess calories ([facility]) Pre-diabetes Other abnormal [...] (severe) obesity due to excess calories ([facility]) Primary hypertension Unspecified essential hypertension Anemia, unspecified type Bilateral lower extremity edema Osteoporosis, unspecified osteoporosis type, unspecified pathological fracture presence Chronic kidney disease, stage 3a ([facility]) Pre-diabetes Other abnormal glucose documented in this encounter [facility] HealthcareEvaluation note* Diagnosis Encounter for annual wellness visit (AWV) in Medicare patient- Primary OSMANY (obstructive sleep apnea) Obstructive sleep apnea (adult) (pediatric) Chronic pain disorder Chronic pain syndrome Gastroesophageal reflux disease, unspecified whether esophagitis present Overactive bladder Hypertonicity of bladder Lower extremity edema Edema Pre-diabetes Other abnormal glucose Morbid obesity ([facility]-HCC) Morbid obesity Yeast infection of the [...] of skin and nails Morbid obesity ([facility]-H[facility]) Morbid obesity Primary hypertension- Primary Unspecified essential hypertension Allergic rhinitis, unspecified Acute cough Morbid obesity ([facility]) Morbid obesity Former cigarette smoker Personal history of tobacco use, presenting hazards to health Toxic metabolic encephalopathy- Primary Hemiparesis, right (HCC) Unspecified hemiplegia affecting unspecified side Acute respiratory failure with hypoxia (HCC) Heart murmur Undiagnosed cardiac murmurs Primary hypertension Unspecified essential hypertension Morbid obesity ([facility]) Morbid obesity Bipolar disorder with severe depression ([facility]) Slurred speech Other speech disturbance Bilateral lower extremity edema- Primary Primary hypertension Unspecified essential hypertension Lower extremity edema Edema Essential (primary) hypertension Unspecified essential hypertension Gastro-esophageal reflux disease without esophagitis Allergic rhinitis, unspecified Bilateral lower extremity edema- Primary Morbid (severe) obesity due to excess calories ([facility]) Body mass index (BMI) 45.0-49.9, adult ([facility]) Pre-diabetes Other abnormal glucose Bilateral lower extremity edema- Primary Essential (primary) hypertension Unspecified essential hypertension Allergic rhinitis, unspecified OSMANY (obstructive sleep apnea) Obstructive sleep apnea (adult) (pediatric) Primary hypertension Unspecified essential hypertension Morbid obesity ([facility]) Morbid obesity Well woman exam with routine gynecological exam- Primary Routine gynecological examination Morbid obesity ([facility]) Morbid obesity Metabolic encephalopathy- Primary OSMANY (obstructive sleep apnea) Obstructive sleep apnea (adult) (pediatric) Morbid obesity ([facility]) Morbid obesity Bilateral lower extremity edema Tobacco dependence Tobacco use disorder Bipolar disorder with severe depression ([facility]) At risk for polypharmacy Anxiety Anxiety state, unspecified Primary hypertension Unspecified essential hypertension Right bundle branch block (RBBB) determined by electrocardiography Primary hypertension- Primary Unspecified essential hypertension Chronic kidney disease, stage 3a ([facility]) Morbid (severe) obesity due to excess calories ([facility]) Body mass index (BMI) 45.0-49.9, adult ([facility]) OSMANY (obstructive sleep apnea) Obstructive sleep apnea (adult) (pediatric) Hemiparesis, right (HCC) Unspecified hemiplegia affecting unspecified side Gastroesophageal reflux disease, unspecified whether esophagitis present Metabolic encephalopathy Essential (primary) hypertension Unspecified essential hypertension Allergic rhinitis, unspecified Gastro-esophageal reflux disease without esophagitis Bilateral lower extremity edema Primary hypertension- Primary Unspecified essential hypertension Morbid (severe) obesity due to excess calories ([facility] Essential (primary) hypertension Unspecified essential hypertension Allergic rhinitis, unspecified Gastro-esophageal reflux disease without esophagitis Bilateral lower extremity edema Bronchitis Bronchitis, not specified as acute or chronic Primary hypertension- Primary Unspecified essential hypertension Bronchitis Bronchitis, not specified as acute or chronic Bilateral lower extremity edema Morbid (severe) obesity due to excess calories ([facility]) Pre-diabetes Other abnormal glucose Allergic rhinitis, unspecified [...] (severe) obesity due to excess calories ([facility]) Primary hypertension Unspecified essential hypertension Anemia, unspecified type Bilateral lower extremity edema Osteoporosis, unspecified osteoporosis type, unspecified pathological fracture presence Chronic kidney disease, stage 3a ([facility]) Pre-diabetes Other abnormal glucose Acute medial meniscus tear of right knee, initial encounter- Primary Chronic pain of right knee Morbid obesity ([facility]) Morbid obesity Primary osteoarthritis of right knee Preoperative testing Unspecified pre-operative examination documented in this encounter [facility] and physical note Author Jace Graham [facility] March 23, 2023 11:21am Note Date/Time March 23, 2023 11:21am [facility] [address] [place] [address] Gastroenterology H&P Signed Patient: Michelle Be MR#: [id number] : 1960 Acct:[id number] Age/Sex: 62 / F Adm Date: 3 [...] signed by Jace Graham MD> 03/23/23 1121 [facility] Work Phone: History general Narrative - [...] see above surg Hospitalization History stroke 2018 [facility] Other Hospital Discharge instructions Additional Instructions Regular Diet [facility]charge instructions Additional [...] years. -Follow up with PCP. -Office number [phone].[facility] Work Phone: Reason for visit Narrative* Consultation (Routine) - Closed Specialty Diagnoses / Procedures Referred By Contac t Referred To Contact Neuropsychology Diagnoses Memory change Procedures NC OFFICE/OUTPATIENT [facility] Juany Leggett PA [address] [place] [address] Phone: tel: fax: David Foster, PhD [address] [address] Phone: tel: fax: Referral ID Status Reason Start Date Expiration Date V isits Requested Visits Authorized [id number] Closed Specialty Services Required 03/07/2024 09/03/2024 1 [...] Documents on File Type Date Recorded Patient Product Management Manager Expl anation Power of Band Machine Operator 03/10/2024 3:12 PM POA Documents on File Type Date Recorded Patient Product Management Manager Expl anation Power of Band Machine Operator 03/10/2024 3:12 PM POA Documents on File Type Date Recorded Patient Product Management Manager Expl anation Power of Band Machine Operator 03/16/2024 9:42 AM darian r of chyron operator Power of Band Machine Operator 03/10/2024 3:12 PM POA Documents on File Type Date Recorded Patient Product Management Manager Expl anation Power of Band Machine Operator 03/16/2024 9:42 AM darian r of chyron operator Power of Band Machine Operator 03/10/2024 3:12 PM POA Chief Complaint and Reason for Visit Chief Complaint Bipolar Depression Reason for Visit Allergies Bipolar 2 disorder Hypertension Morbid obesity with BMI of 45.0-49.9, adult OSMANY (obstructive sleep apnea) Restless legs syndrome Chief Complaint Screening Additional Source Comments INFORMATION SOURCE (unrecogn ized section and content) DATE CREATED AUTHOR 02/18/2019 [facility] DATE CREATED AUTHOR AUTHOR'S ORGANIZ ATION 11/15/2021 [facility] DATE CREATED AUTHOR AUTHOR'S ORGANIZ ATION 08/16/2022 [facility] DATE CREATED AUTHOR AUTHOR'S ORGANIZ ATION 10/09/2024 [facility] DATE CREATED AUTHOR AUTHOR'S ORGANIZ ATION 10/23/2024 [facility] DATE CREATED AUTHOR AUTHOR'S ORGANIZ ATION 11/11/2024 [facility] DATE CREATED AUTHOR AUTHOR'S ORGANIZ ATION 11/21/2024 [facility] dicny Specialists EPIC Care Teams (unrecognized sec tion [...] MD Other Provider Active Adelaida Marsh , ACID TANK LINER Other Provider Active Jessica Murillo , DO [...] MD Other Provider Active Joellen Le , HOT WORKER-C Other Provider Active Severo Yancey MD Other Provider Active Rao Webber MD Other Provider Active Yuan Shi MD Other Provider Active Delroy Ramirez MD Other Provider Active Berta Comer , DO Other Provider Active Negrito Ruzi , DO Other Provider Active Lacho Singh , DO Other Provider Active Rachana Hobson , ACID TANK LINER Other Provider Active Rob Lake , DO Other Provider Active Jeff Alvarez MD Other Provider Active Urmila Rinaldi ACID TANK LINER Other Provider Active Bina Mayberry , ACID TANK LINER Other Provider Active Mri Bradford MD Other Provider Active Te Da Silva MD Other Provider Active Debra Landaverde , JOHANN Other Provider Active Team Status: Inactive Member Role Status Dates Adelaida Carrion Primary Care Provider Active Jace Graham MD Attending Provider Active Print Binding And Finishing Worker Relationship Specialty Start Date End Date José Luis Roberts MD [address] [place] [address] PCP - General Family Medicine 05/18/23 Adelaida Carrion NP [address] [place] [address] Referring Physician Nurse Practitioner 10/14/22 [employer] Binding And Finishing Worker Relationship Specialty Start Date End Date José Luis Roberts MD [address] [place] [address] PCP - General Family Medicine 05/18/23 Adelaida Carrion NP [address] [place] [address] Referring Physician Nurse Practitioner 10/14/22 Print Binding And Finishing Worker Relationship Specialty Start Date End Date José Luis Roberts MD [address] [place] [address] PCP - General Family Medicine 05/18/23 Adelaida Carrion NP [address] [place] [address] Referring Physician Nurse Practitioner 10/14/22 Print Binding And Finishing Worker Relationship Specialty Start Date End Date José Luis Roberts MD [address] [place] [address] PCP - General Family Medicine 05/18/23 Adelaida Carrion NP Referring Physician Nurse Practitioner 10/14/22 Miriam Suarez DO [address] [place] [address] Referring Physician Neurology 06/29/23 [place] LPN Licensed Practical Nurse Family Medicine 12/18/23 Print Binding And Finishing Worker Relationship Specialty Start Date End Date José Luis Roberts MD [address] [place] [address] PCP - General Family Medicine 05/18/23 Adelaida Carrion, BRIANA Referring Physician Nurse Practitioner 10/14/22 Miriam Suarez DO [address] [place] [address] Referring Physician Neurology 06/29/23 [place] LPN Licensed Practical Nurse Family Medicine 12/18/23 Print Binding And Finishing Worker Relationship Specialty Start Date End Date Unallocated, Geeta Sierra MD [address] [place] [address] PCP - General Family Medicine 01/27/24 Miriam Suarez DO [address] [place] [address] Referring Physician Neurology 06/29/23 [place] LPN Licensed Practical Nurse Family Medicine 12/18/23 Adelaida Carrion, BRIANA [address] [place] [address] Nurse Practitioner Family Medicine 01/27/24 Print Binding And Finishing Worker Relationship Specialty Start Date End Date Unallocated, Geeta Sierra MD [address] [facility] [place] [address] PCP - General Family Medicine 01/27/24 Miriam Suarez DO [address] [place] [address] Referring Physician Neurology 06/29/23 [place] LPN Licensed Practical Nurse Family Medicine 12/18/23 Adelaida Carrion NP [address] [place] [address] Nurse Practitioner Family Medicine 01/27/24 Print Binding And Finishing Worker Relationship Specialty Start Date End Date José Luis Roberts MD [address] [place] [address] PCP - General Family Medicine 02/02/24 Miriam Suarez DO [address] [place], [place] [address] Referring Physician Neurology 06/29/23 [place] LPN Licensed Practical Nurse Family Medicine 12/18/23 Adelaida Carrion NP [address] [place] [address] Nurse Practitioner Family Medicine 01/27/24 Print Binding And Finishing Worker Relationship Specialty Start Date End Date José Luis Roberts MD [address] [place] [address] PCP - General Family Medicine 02/02/24 Miriam Suarez DO [address] [place] [address] Referring Physician Neurology 06/29/23 Adelaida Carrion NP [address] [place] [address] Nurse Practitioner Family Medicine 01/27/24 Bong Rosado MA Family Medicine 02/12/24 Print Binding And Finishing Worker Relationship Specialty Start Date End Date José Luis Roberts MD [address] [place] [address] PCP - General Family Medicine 02/02/24 Miriam Suarez DO [address] [place] [address] Referring Physician Neurology 06/29/23 Adelaida Carrion, BRIANA [address] [place] [address] Nurse Practitioner Family Medicine 01/27/24 Bong Rosado MA Family Medicine 02/12/24 Print Binding And Finishing Worker Relationship Specialty Start Date End Date José Luis Roberts MD [address] [place] [address] PCP - General Family Medicine 02/02/24 Miriam Suarez DO [address] [place] [address] Referring Physician Neurology 06/29/23 Adelaida Carrion, BRIANA [address] [place] [address] Nurse Practitioner Family Medicine 01/27/24 Bong Rosado MA Family Medicine 02/12/24 Print Binding And Finishing Worker Relationship Specialty Start Date End Date José Luis Roberts MD [address] [place] [address] PCP - General Family Medicine 02/02/24 Miriam Suarez DO [address] [place], [place] [address] Referring Physician Neurology 06/29/23 Adelaida Carrion NP [address] [place] [address] Nurse Practitioner Family Medicine 01/27/24 Bong Rosado MA Family Medicine 02/12/24 Print Binding And Finishing Worker Relationship Specialty Start Date End Date José Luis Roberts MD [address] [place] [address] PCP - General Family Medicine 02/02/24 Miriam Suarez DO [address] [place], [place] [address] Referring Physician Neurology 06/29/23 Adelaida Carrion NP [address] [place] [address] Nurse Practitioner Family Medicine 01/27/24 Bong Rosado MA Family Medicine 02/12/24 Print Binding And Finishing Worker Relationship Specialty Start Date End Date José Luis Roberts MD [address] [place] [address] PCP - General Family Medicine 02/02/24 Miriam Suarez DO [address] [place], [place] [address] Referring Physician Neurology 06/29/23 Adelaida Carrion NP [address] [place] [address] Nurse Practitioner Family Medicine 01/27/24 Bong Rosado MA Family Medicine 02/12/24 Print Binding And Finishing Worker Relationship Specialty Start Date End Date José Luis Roberts MD [address] [place] [address] PCP - General Family Medicine 02/02/24 Miriam Suarez DO [address] [place] [address] Referring Physician Neurology 06/29/23 Adelaida Carrion, BRIANA [address] [place] [address] Nurse Practitioner Family Medicine 01/27/24 Bong Rosado MA Family Medicine 02/12/24 Print Binding And Finishing Worker Relationship Specialty Start Date End Date José Luis Roberts MD [address] [place] [address] PCP - General Family Medicine 02/02/24 Miriam Suarez DO [address] [place] [address] Referring Physician Neurology 06/29/23 Adelaida Carrion, BRIANA [address] [place] [address] Nurse Practitioner Family Medicine 01/27/24 Bong Rosado MA Family Medicine 02/12/24 Print Binding And Finishing Worker Relationship Specialty Start Date End Date José Luis Roberts MD [address] [place] [address] PCP - General Family Medicine 02/02/24 Miriam Suarez DO [address] [place], [place] [address] Referring Physician Neurology 06/29/23 Adelaida Carrion NP [address] [place] [address] Nurse Practitioner Family Medicine 01/27/24 Bong Rosado MA Family Medicine 02/12/24 Print Binding And Finishing Worker Relationship Specialty Start Date End Date José Luis Roberts MD [address] [place] [address] PCP - General Family Medicine 02/02/24 Miriam Suarez DO [address] [place], [place] [address] Referring Physician Neurology 06/29/23 Adelaida Carrion NP [address] [place] [address] Nurse Practitioner Family Medicine 01/27/24 Bong Rosado MA Family Medicine 02/12/24 Print Binding And Finishing Worker Relationship Specialty Start Date End Date José Luis Roberts MD [address] [place] [address] PCP - General Family Medicine 02/02/24 Miriam Suarez DO [address] [place], [place] [address] Referring Physician Neurology 06/29/23 Adelaida Carrion NP [address] [place] [address] Nurse Practitioner Family Medicine 01/27/24 Bong Rosado MA Family Medicine 02/12/24 Print Binding And Finishing Worker Relationship Specialty Start Date End Date José Luis Roberts MD [address] [place] [address] PCP - General Family Medicine 05/18/23 Adelaida Carrion NP Referring Physician Nurse Practitioner 10/14/22 Miriam Suarez DO [address] [place] [address] Referring Physician Neurology 06/29/23 Mathew Parra LPN Licensed Practical Nurse Family Medicine 07/23/23 Print Binding And Finishing Worker Relationship Specialty Start Date End Date José Luis Roberts MD [address] [place] [address] PCP - General Family Medicine 05/18/23 Adelaida Carrion NP Referring Physician Nurse Practitioner 10/14/22 Miriam Suarez DO [address] [place], [place] [address] Referring Physician Neurology 06/29/23 Mathew Parra LPN Licensed Practical Nurse Family Medicine 07/23/23 Print Binding And Finishing Worker Relationship Specialty Start Date End Date José Luis Roberts MD [address] [place] [address] PCP - General Family Medicine 05/18/23 Adelaida Carrion NP Referring Physician Nurse Practitioner 10/14/22 Miriam Suarez DO [address] [place] [address] Referring Physician Neurology 06/29/23 Mathew Parra LPN Licensed Practical Nurse Family Medicine 07/23/23 Print Binding And Finishing Worker Relationship Specialty Start Date End Date José Luis Roberts MD [address] [place] [address] PCP - General Family Medicine 05/18/23 Adelaida Carrion NP Referring Physician Nurse Practitioner 10/14/22 Miriam Suarez DO [address] [place] [address] Referring Physician Neurology 06/29/23 Mathew Parra LPN Licensed Practical Nurse Family Medicine 07/23/23 Print Binding And Finishing Worker Relationship Specialty Start Date End Date José Luis Roberts MD [address] [place] [address] PCP - General Family Medicine 05/18/23 Adelaida Carrion NP Referring Physician Nurse Practitioner 10/14/22 Miriam Suarez DO [address] [place] [address] Referring Physician Neurology 06/29/23 [place] LPN Licensed Practical Nurse Family Medicine 12/18/23 Print Binding And Finishing Worker Relationship Specialty Start Date End Date José Luis Roberts MD [address] [place] [address] PCP - General Family Medicine 05/18/23 Adelaida Carrion NP Referring Physician Nurse Practitioner 10/14/22 Miriam Suarez DO [address] [place] [address] Referring Physician Neurology 06/29/23 [place] LPN Licensed Practical Nurse Family Medicine 12/18/23 Print Binding And Finishing Worker Relationship Specialty Start Date End Date José Luis Roberts MD [address] [place] [place] [address] PCP - General Family Medicine 05/18/23 Adelaida Carrion NP Referring Physician Nurse Practitioner 10/14/22 Miriam Suarez DO [address] [place] [address] Referring Physician Neurology 06/29/23 [place] LPN Licensed Practical Nurse Family Medicine 12/18/23 Print Binding And Finishing Worker Relationship Specialty Start Date End Date José Luis Roberts MD [address] [place] [address] PCP - General Family Medicine 02/02/24 Miriam Suarez DO [address] [place] [address] Referring Physician Neurology 06/29/23 Adelaida Carrion NP [address] [place] [address] Nurse Practitioner Family Medicine 01/27/24 Bong Rosado MA Family Medicine 02/12/24 Print Binding And Finishing Worker Relationship Specialty Start Date End Date José Luis Roberts MD [address] [place] [address] PCP - General Family Medicine 02/02/24 Miriam Suarez DO [address] [place] [address] Referring Physician Neurology 06/29/23 Adelaida Carrion, BRIANA [address] [place] [address] Nurse Practitioner Family Medicine 01/27/24 Bong Rosado MA Family Medicine 02/12/24 Print Binding And Finishing Worker Relationship Specialty Start Date End Date José Luis Roberts MD [address] [place] [address] PCP - General Family Medicine 02/02/24 Miriam Suarez DO [address] [place], [place] [address] Referring Physician Neurology 06/29/23 Adelaida Carrion, BRIANA [address] [place] [address] Nurse Practitioner Family Medicine 01/27/24 Bong Rosado MA Family Medicine 02/12/24 Print Binding And Finishing Worker Relationship Specialty Start Date End Date José Luis Roberts MD [address] [place] [address] PCP - General Family Medicine 02/02/24 Miriam Suarez DO [address] [place] [address] Referring Physician Neurology 06/29/23 Adelaida Carrion NP [address] [place] [address] Nurse Practitioner Family Medicine 01/27/24 Bong Rosado MA Family Medicine 02/12/24 Print Binding And Finishing Worker Relationship Specialty Start Date End Date José Luis Roberts MD [address] [place] [address] PCP - General Family Medicine 02/02/24 Miriam Suarez DO [address] [place], [place] [address] Referring Physician Neurology 06/29/23 Adelaida Carrion NP [address] [place] [address] Nurse Practitioner Family Medicine 01/27/24 Bong Rosado MA Family Medicine 02/12/24 Print Binding And Finishing Worker Relationship Specialty Start Date End Date José Luis Roberts MD [address] [place] [address] PCP - General Family Medicine 02/02/24 Miriam Suarez DO [address] [place], [place] [address] Referring Physician Neurology 06/29/23 Adelaida Carrion NP [address] [place] [address] Nurse Practitioner Family Medicine 01/27/24 Bong Rosado MA Family Medicine 02/12/24 Print Binding And Finishing Worker Relationship Specialty Start Date End Date José Luis Roberts MD [address] [place] [address] PCP - General Family Medicine 02/02/24 Miriam Suarez DO [address] [place] [address] Referring Physician Neurology 06/29/23 Adelaida Carrion NP [address] [place] [address] Nurse Practitioner Family Medicine 01/27/24 Bong Rosado MA Family Medicine 02/12/24 Juany Leggett PA [address] [place], [place] [address] Physician Trapeze Performer Neurology 07/26/24 Print Binding And Finishing Worker Relationship Specialty Start Date End Date José Luis Roberts MD [address] [place] [address] PCP - General Family Medicine 02/02/24 Miriam Suarez DO [address] [place], [place] [address] Referring Physician Neurology 06/29/23 Adelaida Carrion NP [address] [place] [address] Nurse Practitioner Family Medicine 01/27/24 Bong Rosado MA Family Medicine 02/12/24 Juany Leggett PA [address] [place], [place] [address] Physician Trapeze Performer Neurology 07/26/24 Print Binding And Finishing Worker Relationship Specialty Start Date End Date José Luis Roberts MD [address] [place] [address] PCP - General Family Medicine 02/02/24 Miriam Suarez DO [address] [place] [address] Referring Physician Neurology 06/29/23 Adelaida Carrion, BRIANA [address] [place] [address] Nurse Practitioner Family Medicine 01/27/24 Bong Rosado MA Family Medicine 02/12/24 Juany Leggett PA [address] [facility] [address] Physician Trapeze Performer Neurology 07/26/24 Print Binding And Finishing Worker Relationship Specialty Start Date End Date José Luis Roberts MD [address] [place] [address] PCP - General Family Medicine 02/02/24 Miriam Suarez DO [address] [place] [address] Referring Physician Neurology 06/29/23 Adelaida Carrion NP [address] [place] [address] Nurse Practitioner Family Medicine 01/27/24 Bong Rosado MA Family Medicine 02/12/24 Juany Leggett PA [address] [place] [address] Physician Trapeze Performer Neurology 07/26/24 Print Binding And Finishing Worker Relationship Specialty Start Date End Date José Luis Roberts MD [address] [place] [address] PCP - General Family Medicine 02/02/24 Miriam Suarez DO [address] [place] [address] Referring Physician Neurology 06/29/23 Adelaida Carrion, BRIANA [address] [place] [address] Nurse Practitioner Family Medicine 01/27/24 Bong Rosado MA Family Medicine 02/12/24 Juany Leggett PA [address] [place] [address] Physician Trapeze Performer Neurology 07/26/24 Print Binding And Finishing Worker Relationship Specialty Start Date End Date José Luis Roberts MD [address] [place] [address] PCP - General Family Medicine 02/02/24 Miriam Suarez DO [address] [place] [address] Referring Physician Neurology 06/29/23 Adelaida Carrion NP [address] [place] [address] Nurse Practitioner Family Medicine 01/27/24 Bong Rosado MA Family Medicine 02/12/24 Juany Leggett PA [address] [place], [place] [address] Physician Trapeze Performer Neurology 07/26/24 Print Binding And Finishing Worker Relationship Specialty Start Date End Date José Luis Roberts MD [address] [place] [address] PCP - General Family Medicine 02/02/24 Miriam Suarez DO [address] [place] [address] Referring Physician Neurology 06/29/23 Adelaida Carrion NP [address] [place] [address] Nurse Practitioner Family Medicine 01/27/24 Bong Rosado, [place] [address] [place] [address] Family Medicine 02/12/24 Juany Leggett PA [address] [place], [place] [address] Physician Trapeze Performer Neurology 07/26/24 Print Binding And Finishing Worker Relationship Specialty Start Date End Date José Luis Roberts MD [address] [place] [address] PCP - General Family Medicine 02/02/24 Miriam Suarez DO [address] [place], [place] [address] Referring Physician Neurology 06/29/23 Adelaida Carrion NP [address] [place] [address] Nurse Practitioner Family Medicine 01/27/24 Bong Rosado MA [address] [place] [address] Family Medicine 02/12/24 Juany Leggett PA [address] [place] [address] Physician Trapeze Performer Neurology 07/26/24 Print Binding And Finishing Worker Relationship Specialty Start Date End Date José Luis Roberts MD [address] [place] [address] PCP - General Family Medicine 02/02/24 Miriam Suarez DO [address] [place] [address] Referring Physician Neurology 06/29/23 Adelaida Carrion NP [address] [place] [address] Nurse Practitioner Family Medicine 01/27/24 Bong Rosado MA [address] [place] [address] Family Medicine 02/12/24 Juany Leggett PA [address] [place] [address] Physician Trapeze Performer Neurology 07/26/24 Print Binding And Finishing Worker Relationship Specialty Start Date End Date José Luis Roberts MD [address] [place] [address] PCP - General Family Medicine 02/02/24 Miriam Suarez DO [address] [place] [address] Referring Physician Neurology 06/29/23 Adelaida Carrion NP [address] [place] [address] Nurse Practitioner Family Medicine 01/27/24 Bong Rosado MA [address] [place] [address] Family Medicine 02/12/24 Juany Leggett PA [address] [place] [place] [id number] Physician Trapeze Performer Neurology 07/26/24 [employer] Fin[employer] Worker Relationship Specialty Start Date End Date José Luis Roberts MD [address] [place] [phone] PCP - General Family Medicine 02/02/24 Miriam Suarez DO [address] [place] [address] Referring Physician Neurology 06/29/23 Adelaida Carrion NP [address] [place] [phone] Nurse Practitioner Family Medicine 01/27/24 Bong Rosado MA [address] [place] [address] Family Medicine 02/12/24 Juany Leggett PA [address] [place] [place], [place] [id number] Physician Trapeze Performer Neurology 07/26/24 Print Binding [employer] Finishing Worker Relationship Specialty Start Date End Date José Luis Roberts MD [address] [place] [phone] PCP - General Family Medicine 02/02/24 Miriam Suarez DO [address] [place] [address] Referring Physician Neurology 06/29/23 Adelaida Carrion NP [address] [place] [phone] Nurse Practitioner Family Medicine 01/27/24 Bong Rosado MA [address] [place] [address] Family Medicine 02/12/24 Juany Leggett PA [address] [place] [address] Physician Trapeze Performer Neurology 07/26/24 Print Binding And Finishing Worker Relationship Specialty Start Date End Date José Luis Roberts MD [address] [place] [phone] PCP - General Family Medicine 02/02/24 Miriam Suarez DO [address] [place] [address] Referring Physician Neurology 06/29/23 Adelaida Carrion NP [address] [place] [phone] Nurse Practitioner Family Medicine 01/27/24 Bong Rosado MA [address] [place] [address] Family Medicine 02/12/24 Juany Leggett PA [address] [place] [address] Physician Trapeze Performer Neurology 07/26/24 Print Binding [employer] Finishing Worker Relationship Specialty Start Date End Date José Luis Roberts MD [address] [place] [phone] PCP - General Family Medicine 02/02/24 Miriam Suarez DO [address] [place] [address] Referring Physician Neurology 06/29/23 Adelaida Carrion NP [address] [place] [phone] Nurse Practitioner Family Medicine 01/27/24 Bong Rosado, [place] [address] [place] [address] Family Medicine 02/12/24 Juany Leggett PA [address] [place] [address] Physician Trapeze Performer Neurology 07/26/24 Print Binding [employer] Finishing Worker Relationship Specialty Start Date End Date José Luis Roberts MD [address] [place] [phone] PCP - General Family Medicine 02/02/24 Miriam Suarez DO [address] [place] [address] Referring Physician Neurology 06/29/23 Adelaida Carrion NP [address] [place] [phone] Nurse Practitioner Family Medicine 01/27/24 Bong Rosado, [place] [address] [place] [address] Family Medicine 02/12/24 Juany Leggett PA [address] [place] [address] Physician Trapeze Performer Neurology 07/26/24 REASON FOR VISIT (unrecogniz ed [...] BE BASED ON THE PRIMARY CLINICAL RECORDS. [employer] [facility]. provides no warranty or guarantee of the accuracy or completeness of information in this document.
--- NOTE | 2024-11-23 08:57 | XR_ITS ---
The [address] [address] Patient Name: MICHELLE BE MRN: [id number] date: 1960 Sex: F Assigned Patient Location: [facility] Current Patient Location: MRI Accession/Order Number: [id number] Exam Date: 11/23/2024 12:50 Report Date: 11/23/2024 12:51 At the request of: HARRISON HOYOS Procedure: XR chest 2V PA AND LATERAL CHEST: CLINICAL HISTORY: Pre Operative Testing COMPARISON: 07/24/2024 FINDINGS: Unremarkable cardiomediastinal. Lungs clear. No effusion or pneumothorax. XR/XR chest 2V IMPRESSION: NO ACUTE CARDIOPULMONARY ABNORMALITY. Impression dictated by: Omar Calderon M.D. 11/23/2024 12:51 PM Dictation Location: [place] [address] Electronically authenticated by: [id number] Y Date: 11/23/2024 12:51
== END 2024-11-23 08:28 | disposition home or self-care (01) ==
LOC: RAD 08:28
PROVIDERS: PCP Nurse Practitioner; Visit Provider Orthopaedic Surgery
DX: Z01.818 Encounter for other preprocedural examination (principal)
CPT/HCPCS: 71046

== ENCOUNTER 2024-11-23 08:55 | Outpatient (OUT) | payer MEDICARE, SELFPAY ==
--- NOTE | 2024-11-23 08:59 | MR_ITS ---
The [address] [address] Patient Name: MICHELLE BE MRN: [id number] date: 1960 Sex: F Assigned Patient Location: MRI Current Patient Location: MRI Accession/Order Number: [id number] Exam Date: 11/23/2024 12:59 Report Date: 11/23/2024 13:28 At the request of: ELIZABETH CANO NP Procedure: MR lumbar spine wo con MRI of the lumbar spine performed without contrast INDICATION: Chronic lumbar pain COMPARISON: X-rays lumbar spine 12/02/2023 FINDINGS: Lumbar vertebral heights are maintained. Anterolisthesis of renal for no 07/10/2019 3 mm and 4 mm likely likely related to the degenerative facet arthropathy this level. Minimal intervertebral space narrowing notably L5-S1. Conus medullaris service normally at L1-L2. T12-L1: Mild to moderate facet arthropathy. Mild to moderate right foraminal narrowing and mild left from narrowing. No significant disc disease or disc protrusion. Canal is patent. L1-2: Mild to moderate right mild left facet arthropathy. No significant disc disease disc protrusion central canal or neural from narrowing identified. L2-3: Mild to moderate facet arthropathy. Mild left foraminal narrowing. Right foramen and central canal patent. No significant disc disease or disc protrusion. L3-4: Broad-based disc bulge with moderate to severe facet arthropathy. Slight. Posterior disc noted. There is moderate central canal narrowing. [id number] neural foraminal narrowing. L4-5: Circumferential disc bulge with small right subarticular zone T2 hyperintensity and protrusion questionably contacting the right traversing L5 nerve root. No high-grade mass effect or displacement on the L5 nerve root identified. Otherwise moderate foraminal narrowing. Advanced facet arthropathy. [id number] central canal stenosis. L5-S1: Disc desiccation with moderate facet arthropathy. Canal neural foramina patent. MR/MR lumbar spine wo con IMPRESSION: Posterior elements degenerative changes notably L3-L5 with anterolisthesis L3 on L4 and L4 on L5 up to 4 mm caused by a moderate severe facet arthropathy. There is up to moderate foraminal narrowing at these levels. Impression dictated by: Omar Calderon M.D. 11/23/2024 1:28 PM Dictation Location: [place] [address] Electronically authenticated by: [id number] Y Date: 11/23/2024 13:28
--- OUTSIDE RECORDS SUMMARY | 2024-11-23 09:11 | XMS_ITS | CCD ---
Author Organization [facility] Care Team Providers Care Optical Coating Technician Name Role Phone EBRAHEIM, SUKI Admitting Unavailable EBRAHEIM, SUKI Attending Unavailable AICHHOLZ, ADELAIDA Referring Unavailable AICHHOLZ, ADELAIDA Primary Care Unavailable [place] Procedure Practitioner Unavailab SUKI Jacob Surgeon Unavailable [place] Procedure Practitioner Unavailab CHAPARRITA Goncalves Surgeon Unavailable BRIDGETTE MACEDO Admitting Unavailable BRIDGETTE MACEDO Attending Unavailable AICHHOLZ, STAMPING DIE MAKER ADELAIDA Primary Care Unavailable NIXON ., DR FINA Iverson Admitting Unavailable NIXON ., DR FINA Iverson Attending Unavailable AICHHOLZ, STAMPING DIE MAKER ADELAIDA Primary Care Unavailable MCDANIEL ., ZELDA Consulting Unavailable LAKSHMIPATHY ., NARENDRANATH Consulting Paula vailable LAKSHMIPATHY ., NARENDRANATH Admitting Paula vailable LAKSHMIPATHY ., NARENDRANATH Attending Paula vailable AICHHOLZ, STAMPING DIE MAKER ADELAIDA Primary Care Unavailable LAKSHMIPATHY ., NARENDRANATH Consulting Paula vailable AICHHOLZ, STAMPING DIE MAKER ADELAIDA Primary Care Unavailable MARKER ., DR CHAUDHRY Admitting Unavailable MARKER ., DR CHAUDHRY Attending Unavailable MARKER ., DR CHAUDHRY Consulting Unavailable AICHHOLZ, STAMPING DIE MAKER ADELAIDA Admitting Unavailable AICHHOLZ, STAMPING DIE MAKER ADELAIDA Attending Unavailable AICHHOLZ, STAMPING DIE MAKER ADELAIDA Primary Care Unavailable NIXON ., DR FINA Iverson Admitting Unavailable NIXON ., DR FINA Iverson Attending Unavailable AICHHOLZ, STAMPING DIE MAKER ADELAIDA Primary Care Unavailable MCDANIEL ., ZELDA Consulting Unavailable NIXON ., DR FINA Iverson Admitting Unavailable NIXON ., DR FINA Iverson Attending Unavailable AICHHOLZ, STAMPING DIE MAKER ADELAIDA Primary Care Unavailable MCDANIEL ., ZELDA Consulting Unavailable AICHHOLZ, STAMPING DIE MAKER ADELAIDA Admitting Unavailable AICHHOLZ, STAMPING DIE MAKER ADELAIDA Attending Unavailable AICHHOLZ, STAMPING DIE MAKER ADELAIDA Primary Care Unavailable AICHHOLZ, STAMPING DIE MAKER ADELAIDA Consulting Unavailable AICHOLZ, STAMPING DIE MAKER ADELAIDA Admitting Unavailable AICHHOLZ, STAMPING DIE MAKER ADELAIDA Attending Unavailable AICHOLZ, [facility] ADELAIDA Primary Care Unavailable AICHHOLZ, STAMPING DIE MAKER ADELAIDA Consulting Unavailable MISC, DR COTE Admitting Unavailable MISC, DR COTE Attending Unavailable AICHOLZ, [facility] ADELAIDA Primary Care Unavailable AICHHOLZ, STAMPING DIE MAKER ADELAIDA Consulting Unavailable ELYSSA, DR COTE Consulting Unavailable STARR, DR KINGSLEY Atkins Consulting Unavailable NIXON ., DR FINA Iverson Admitting Unavailable NIXON ., DR FINA Iverson Attending Unavailable AICHOLZ, [facility] ADELAIDA Primary Care Unavailable MCDANIEL ., ZELDA Consulting Unavailable NIXON ., DR FINA Iverson Admitting Unavailable NIXON ., DR FINA Iverson Attending Unavailable [facility], [facility] Primary Care Unavailable NIXON ., DR FINA Iverson Consulting Unavailable OMID LAY Consulting Unavailable NIXON ., DR FINA Iverson Admitting Unavailable NIXON ., DR FINA Iverson Attending Unavailable [facility], [facility] Primary Care Unavailable MCDANIEL ., ZELDA Consulting Unavailable [facility], [facility] Primary Care Unavailable HALKER ., ARIAN Admitting Unavailable HALKER ., ARIAN Attending Unavailable LAKSHMIPATHY ., NARENDRANATH Consulting Paula vailable HALKER ., ARIAN Consulting Unavailable LAKSHMIPATHY ., NARENDRANATH Admitting Paula vailable LAKSHMIPATHY ., NARENDRANATH Attending Paula vailable [facility], [facility] Primary Care Unavailable LAKSHMIPATHY ., NARENDRANATH Consulting Paula vailable AICHOLZ, STAMPING DIE MAKER ADELAIDA Admitting Unavailable AICHOLZ, STAMPING DIE MAKER ADELAIDA Attending Unavailable AICHOLZ, STAMPING DIE MAKER ADELAIDA Primary Care Unavailable AICHHOLZ, STAMPING DIE MAKER ADELAIDA Consulting Unavailable BRIDGETTE MACEDO Admitting Unavailable BRIDGETTE MACEDO Attending Unavailable AICHOLZ, STAMPING DIE MAKER ADELAIDA Primary Care Unavailable STARR, DR KINGSLEY Atkins Consulting Unavailable BRIDGETTE MACEDO Consulting Unavailable GILMER NEVES Admitting Unavailable GILMER NEVES Attending Unavailable PURA, GILMER Consulting Unavailable AICHOLZ, STAMPING DIE MAKER ADELAIDA Primary Care Unavailable AICHOLZ, STAMPING DIE MAKER ADELAIDA Primary Care Unavailable DR WILLI RINALDI Admitting Unavailable DEEJAY, DR WILLI Atkins Attending Unavailable DR WILLI RINALDI Consulting Unavailable AICHOLZ, STAMPING DIE MAKER ADELAIDA Primary Care Unavailable ALMAZ ., DANNY Admitting Unavailable ALMAZ ., DANNY Attending Unavailable DR KINGSLEY CLEMENTS Consulting Unavailable ALMAZ ., DANNY Consulting Unavailable LAKSHMIPATHY ., NARENDRANATH Admitting Paula vailable LAKSHMIPATHY ., NARENDRANATH Attending Paula vailable AICHHOLZ, STAMPING DIE MAKER ADELAIDA Primary Care Unavailable AICHHOLZ, STAMPING DIE MAKER ADELAIDA Admitting Unavailable AICHHOLZ, STAMPING DIE MAKER ADELAIDA Attending Unavailable AICHHOLZ, STAMPING DIE MAKER ADELAIDA Primary Care Unavailable AICHHOLZ, STAMPING DIE MAKER ADELAIDA Admitting Unavailable AICHHOLZ, STAMPING DIE MAKER ADELAIDA Attending Unavailable AICHHOLZ, STAMPING DIE MAKER ADELAIDA Primary Care Unavailable AICHHOLZ, STAMPING DIE MAKER ADELAIDA Consulting Unavailable ZIEBER, DR KINGSLEY Atkins Consulting Unavailable HALKER ., ARIAN Admitting Unavailable HALKER ., ARIAN Attending Unavailable AICHHOLZ, STAMPING DIE MAKER ADELAIDA Primary Care Unavailable Aichholz, Adelaida J Primary Care Provider [phone] MD Gaudencio Monk Admit Provider [phone] MD Gaudencio Monk Attending Provider JOHANN Vieira Other Provider Unavailable JOHANN Pina Other Provider Unavailable JOHANN Hurtado Other Provider Unavailable JOHANN Crooks Other Provider Unavailable JOHANN Mejias Other Provider Unavailable JOHANN Kim Other Provider Unavailable MD Walker Pringle Other Provider Dilans, ARMATURE WINDER REPAIR HELPER Adelaida Huddleston Other Provider DO Jessica Murillo Other Provider MD Obdulio Bragg Other Provider [phone] DO Joon Cristina Other Provider MD Torin Robert Other Provider [phone] MD Dawn Barrera Other Provider Karlene [...] Provider MD Jace Graham Attending Provider Sheyla CARPENTER SHIP, Adelaida Unavailable José Luis Roberts MD Primary Care Provider [phone] Sheyla CARPENTER SHIP, Adelaida Unavailable Daniela GRAHAM, Miriam Unavailable Moises CAMPBELL, Diana Unavailable Unavailable Unallocated , [place] Provider Primary Care Yadirai kellee Sheyla CARPENTER SHIP, Adelaida Unavailable José Luis Roberts MD Primary [...] Foster Consulting Unavailable Daniela Miriam Consulting Unavailable ScarvilleKingsley downing Consulting Unavailable Kar Burt Consulting Unavailab [...] adverse reactions (disorder) 04-06-19 14 rash [facility] Repository (3 sources) levETIRAcetam; Translations: [KEPPRA] Drug Allergy 07-02-19 19 [facility] (3 sources) milnacipran; Translations: [SAVELLA] Drug Allergy 03-14-20 13 [facility] Rep[facility] (1 source) Penicillin; Translations: [PENICILLIN] Drug Allergy 01-16-20 18 [facility] (5 sources) Prochlorperazin e; Translations: [COMPAZINE] Drug Allergy 03-14-20 13 agitation [facility] Rep[facility] (20 sources) Tetracycline; Translations: [TETRACYCLINE] Drug Allergy 04-06-19 13 Hives, Unknown [facility] Rep[facility] (4 sources) Penicillins Drug allergy (disorder) 04-06-19 13 Unknown Reaction [facility] Repository (20 sources) levETIRAcetam; Translations: [levetiracetam] Drug Allergy 12-13-19 22 Hallucinations , Other [facility] (20 sources) milnacipran; Translations: [milnacipran] Drug Allergy 12-13-19 22 hives, Hallucinations , Other, Unknown [facility] (20 sources) Prochlorperazin e; Translations: [prochlorperazi ne] Drug Allergy 12-13-19 22 Unknown, Other [facility] (2 sources) Penicillin G Drug Allergy as a child [facility] Other (2 sources) Tetracaine Drug Allergy Unknown [facility] Other (20 sources) Penicillins Drug Intolerance 12-13-19 22 Anaphylaxis [facility] (20 sources) Other Propensity to adverse reactions 12-13-19 22 Other [facility] (20 sources) Wound Dressing Adhesive Drug Allergy 09-20-19 23 Rash, Unknown [facility] (20 sources) Eszopiclone Drug Allergy 09-21-19 24 Hallucinations , Anaphylaxis [facility] (1 source) Penicillin Drug Allergy 03-02-20 [facility] (1 source) Penicillins Drug allergy (disorder) 03-02-20 [facility] (1 source) Tetracaine Drug Allergy 03-02-20 [facility] Medications Current Medications Medication Drug [...] sources) Magnesium 400 MG capsule Pt taking OTC(Raising IT) Active Magnesium 400 MG capsule magnesium 0 [...] e Melatonin 12 MG tablet Indications: from [place]oss[facility] Take 1 tablet by mouth at bedtime [...] s-Minerals (BARIATRIC MULTIVITAMINS/IRON PO) Pt taking OTC (Blossom) Active Multiple Vitamin s-Minerals (BARIATRIC MULTIVITAMINS/IRON PO) Bariatric Multivitamins/Iron 0 Active Pkewisygfwfq-Vll-Xrtt-Fa-Vit K (Bariatric Multivitamins) 45 mg iron- 800 mcg-120 mcg Capsule (2 sources) Start: 11-17-2022 take 1 capsule by mouth once daily Fepmhcswlxhq-Umj-Wdmh-Fa-Vit K (Bariatric Multivitamins) 45 mg iron- 800 mcg-120 mcg Capsule Active 1 CAP PO Daily November 16, 2022 11:00pm Start: 11-17-2022 take 1 capsule by mo uth once daily Iquimserrnpu-Cqq-Suyu-Fa-Vit K (Bariatri c Multivitamins) 45 mg iron- 800 mcg-120 mcg Capsule Active 1 CAP PO Daily November 17, 2022 12:00am nystatin 195343 unt/ml topical cream (20 sources) Polyene Antifungal Start: 03-07-2024 nystatin (M ycostatin) cream 03/07/2024 Active nystatin (Mycost atin) 455794 UNIT/GM powder Apply 1 application topically in [...] 05-18-2023 Episodic Other aftercare (1 source) 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 [facility] Comment on above: TESTS RESULT FLAG UN ITS REF RANGE LAB Clinician Provided Cytology Information Source.............Cervix;Endocervix No. of containers..01 ThinPrep Vial Age Algo ACOG Tona... FLAG LEGEND: L-Low Normal,H-High Normal,LL-Alert Low,HH-Alert High <-Panic Low,>-Panic High,A-Abnormal,AA-Critical Abnormal Performed at: 01 = [facility] [place] [place] [address] Farzana Hennessy MD, HPV APTIMA Negative Negative [facility] Comment on above: This nucleic acid am plification test detects fourteen high- risk HPV types (16,18,31,33,35,39,45,51,52,56,58,59,66,68) without differentiation. Performed at: [facility] [address] [id number] War[employer] Dyeing Vat Tender: Farzana Hennessy MD, Phone: [phone] Performed at: WB - [facility] [address], [place] [id number] [employer] D[employer] Vat Tender: Farzana Hennessy MD, Phone: [phone] IGP, APTIMA HPV, RFX 16/18,45 Note . [facility] Comment on above: TESTS RESULT FLAG UN ITS REF RANGE LAB DIAGNOSIS: 02 NEGATIVE FOR INTRAEPITHELIAL LESION OR MALIGNANCY. CELLULAR CHANGES ASSOCIATED WITH ATROPHY ARE PRESENT. Specimen adequacy: 02 Satisfactory for evaluation. Endocervical component may not be distinguished in cases of atrophy. Performed by: 02 Adela Acosta Corporate Driver (ASCP) . 02 Note: Note 02 [...] High,A-Abnormal,AA-Critical Abnormal Performed at: 02 WB [facility] [place] [address] [place] [address] Farzana Hennessy MD, BRUSH-SPATULA CERVIX ENDOCERVIX [facility] MR KNEE RIGHT WO IV CONTRAST on [...] - bilat eral GE 2 Viewson 09-29-2024 [place] [id number] XRay Report Signed Patient: MICHELLE BE MR#: [id number] : 1960 Acct:[id number] Age/Sex: 63 / F ADM Date: 09/29/24 Loc: RAD Attending Dr: Elizabeth Culp NP Ordering Physician: Elizabeth Culp NP Date of Service: 09/29/24 Procedure(s): XR hip BHUMI Accession Number(s): [id number] cc: Adelaida Carrion NP; Elizabeth Culp NP [address] [address] Patient Name: MICHELLE BE MRN: [facility]:[id number] date: 1960 Sex: F Assigned Patient Location: [facility] Current Patient Location: [facility] Accession/Order Number: [id number] Exam Date: 09/29/2024 11:20 Report Date: 09/29/2024 [...] Bernal M.D. 09/29/2024 11:23 AM Dictation Location: [place] [address] Electronically authenticated by: [id number] Y Date: 09/29/2024 11:23 Dictated By: Edith Bernal M.D. Signed By: 09/29/24 1126 DD/ 1123 TD/TT: Biostatistics Professor: [facility] Radiology, Radiologist, MD - 09/29/2024 [place] [address] XRay Report Signed Patient: MICHELLE BE MR#: [id number] : 1960 Acct:[id number] Age/Sex: 63 / F ADM Date: 09/29/24 Loc: SAHIL Attending Dr: Elizabeth Culp NP Ordering Physician: Elizabeth Culp NP Date of Service: 09/29/24 Procedure(s): XR hip BHUMI Accession Number(s): [id number] cc: Adelaida Carrion NP; Elizabeth Culp NP The [address] [address] Patient Name: MICHELLE BE MRN: [facility]:[id number] date: 1960 Sex: F Assigned Patient Location: [facility] Current Patient Location: [facility] Accession/Order Number: [id number] Exam Date: 09/29/2024 11:20 Report Date: 09/29/2024 [...] Bernal M.D. 09/29/2024 11:23 AM Dictation Location: [place] [address] Electronically authenticated by: [id number] Y Date: 09/29/2024 11:23 Dictated By: Edith Bernal M.D. Signed By: 09/29/24 1126 DD/ 1123 TD/TT: Biostatistics Professor: [facility] Radiology Study observation (narrative) [facility] XR Pelvis AP and Hip - bilat eral GE 2 ViewsOrdered By: Radiologist Radiology on 09-29-2024 [facility] Work Phone: CT LUNG SCREENING LOW DOSEon 09-26-2024 [place] [address] CT Scan Report Signed Patient: MICHELLE BE MR#: [id number] : 1960 Acct:[id number] Age/Sex: 63 / F ADM Date: 09/26/24 Loc: MAMMO Attending Dr: Adelaida Carrion NP Ordering Physician: Adelaida Carrion NP Date of Service: 09/26/24 Procedure(s): CT lung screening low-dose Accession Number(s): [id number] cc: Adelaida Carrion NP [address] [place] [address] Patient Name: MICHELLE BE MRN: [facility]:[id number] date: 1960 Sex: F Assigned Patient Location: MAMMO Current Patient Location: RAD Accession/Order Number: [id number] Exam Date: 09/26/2024 16:58 Report Date: 09/26/2024 [...] Guadalupe M.D. 09/26/2024 5:02 PM Dictation Location: [place] [address] Electronically authenticated by: [id number] Y Date: 09/26/2024 17:02 Dictated By: Willi Guadalupe M.D. Signed By: 09/26/24 1704 DD/ 01 TD/TT: Biostatistics Professor: [facility] Radiology, Radiologist, MD - 09/26/[address] [address] [address] Scan Report Signed Patient: MICHELLE BE MR#: [id number] : 1960 Acct:[id number] Age/Sex: 63 / F ADM Date: 09/26/24 Loc: MAMMO Attending Dr: Adelaida Carrion NP Ordering Physician: Adelaida Carrion NP Date of Service: 09/26/24 Procedure(s): CT lung screening low-dose Accession Number(s): [id number] cc: Adelaida Carrion NP [address] [address] Patient Name: MICHELLE BE MRN: [facility]:[id number] date: 1960 Sex: F Assigned Patient Location: [facility] Current Patient Location: RAD Accession/Order Number: [id number] Exam Date: 09/26/2024 16:58 Report Date: 09/26/2024 [...] Guadalupe M.D. 09/26/2024 5:02 PM Dictation Location: [place] [address] Electronically authenticated by: [id number] Y Date: 09/26/2024 17:02 Dictated By: Willi Guadalupe M.D. Signed By: 09/26/241703 DD/ 01 TD/TT: Biostatistics Professor: [facility] Radiology Study observation (narrative) [facility] CT LUNG SCREENING LOW DOSEOr dered By: Radiologist Radiology on 09-26-2024 [facility] Work Phone: MM TOMOSYNTHESIS SCREENING B Ion 09-26-2024 [place] [address] Mammography Report Signed Patient: MICHELLE BE MR#: [id number] : 1960 Acct:[id number] Age/Sex: 63 / F ADM Date: 09/26/24 Loc: MAMMO Attending Dr: Adelaida Carrion NP Ordering Physician: Adelaida Carrion NP Results: Date of Service: 09/26/24 Follow Up: Procedure(s): MM tomosynthesis screening BI Accession Number(s): [id number] cc: Adelaida Carrion NP Patient Name: MICHELLE BE MR#: [id number] : 1960 Exam Date: 09/26/2024 Ordering Doctor: [...] Treatments None Family Cancers None LOCATION: The [facility] BREAST COMPOSITION: There are scattered areas of [...] M.D. Signed By: 09/26/241642 DD/ 41 TD/TT: Biostatistics Professor: [facility] Radiology, Radiologist, MD - 09/26/2024 [place] [address] Mammography Report Signed Patient: MICHELLE BE MR#: [id number] : 1960 Acct:[id number] Age/Sex: 63 / F ADM Date: 09/26/24 Loc: MAMMO Attending Dr: Adelaida Carrion NP Ordering Physician: Adelaida Carrion NP Results: Date of Service: 09/26/24 Follow Up: Procedure(s): MM tomosynthesis screening BI Accession Number(s): [id number] cc: Adelaida Carrion NP Patient Name: MICHELLE BE MR#: [id number] : 1960 Exam Date: 09/26/2024 Ordering Doctor: [...] Treatments None Family Cancers None LOCATION: The [facility] BREAST COMPOSITION: There are scattered areas of [...] M.D. Signed By: 09/26/241642 DD/ 41 TD/TT: Biostatistics Professor: [facility] Radiology Study observation (narrative) [facility] MM TOMOSYNTHESIS SCREENING B IOrdered By: Radiologist Radiology on 09-26-2024 [facility] Work Phone: XR SHOULDER RT MIN 2Von 09-05 [place] 4[address] XRay Report Signed Patient: MICHELLE BE MR#: [id number] : 1960 Acct:[id number] Age/Sex: 63 / F ADM Date: 09/26/24 Loc: RAD Attending Dr: Elizabeth Culp NP Ordering Physician: Elizabeth Culp NP Date of Service: 09/26/24 Procedure(s): XR shoulder RT min 2V Accession Number(s): [id number] cc: Adelaida Carrion NP; Elizabeth Culp NP [address] [address] Patient Name: MICHELLE BE MRN: [facility]:[id number] date: 1960 Sex: F Assigned Patient Location: RAD Current Patient Location: RAD Accession/Order Number: [id number] Exam Date: 09/26/2024 13:34 Report Date: 09/26/2024 [...] Guadalupe M.D. 09/26/2024 1:35 PM Dictation Location: [place] [address] Electronically authenticated by: [id number] Y Date: 09/26/2024 13:35 Dictated By: Willi Guadalupe M.D. Signed By: 09/26/248 DD/ 34 TD/TT: Biostatistics Professor: [facility] Radiology, Radiologist, MD - 09/26/2024 [place] [address] XRay Report Signed Patient: MICHELLE BE MR#: [id number] : 1960 Acct:[id number] Age/Sex: 63 / F ADM Date: 09/26/24 Loc: RAD Attending Dr: Elizabeth Culp NP Ordering Physician: Elizabeth Culp NP Date of Service: 09/26/24 Procedure(s): XR shoulder RT min 2V Accession Number(s): [id number] cc: Adelaida Carrion NP; Elizabeth Culp NP The [place] [id number] Patient Name: MICHELLE BE MRN: [facility]:[id number] date: 1960 Sex: F Assigned Patient Location: [facility] Current Patient Location: [facility] Accession/Order Number: [id number] Exam Date: 09/26/2024 13:34 Report Date: 09/26/2024 13:35 At the request of: ELIZABTEH CULP NP Procedure: XR shoulder RT min [...] Guadalupe M.D. 09/26/2024 1:35 PM Dictation Location: [place] [address] Electronically authenticated by: [id number] Y Date: 09/26/2024 13:35 Dictated By: Willi Guadalupe M.D. Signed By: 09/26/24 1338 DD/ 1335 TD/TT: Biostatistics Professor: [facility] Radiology Study observation (narrative) [facility] XR SHOULDER RT MIN 2VOrdered By: Radiologist Radiology on 09-26-2024 [facility] Work Phone: HbA1c (Bld) [Mass fraction]o n 08-16-2024 Interpretation and review of laboratory results Normal [facility] - Hematology and Cell countson 08-16-2024 HbA1c (Bld) [Mass fraction] 5.6 % [facility] Complete Blood Count Auto Di ffon 03-05-2024 Basophils (Bld) [#/Vol] 0.0 10*3/uL Normal 0.0-0.2 [facility] Comment on above: Result Comment: PERF ORMED BY: [place] [address] PATHOLOGIST LNA ADIEL AGUSTIN M.D. Performed By: #### C BC, MG, CMP #### [place] [address] [place] Basophils/100 WBC (Bld) 0.5 % Normal . [facility] Comment on above: Performed By: #### C BC, MG, CMP #### [address] Eosinophils (Bld) [#/Vol] 0.2 10*3/uL Normal 0.0-0.45 [facility] Comment on above: Performed By: #### C BC MG, CMP #### [address] Eosinophils/100 WBC (Bld) 2.2 % Normal . [facility] Comment on above: Performed By: #### C BC, MG, CMP #### [address] Erythrocyte distribution width (RBC) [Ratio] 14.5 % Normal 11.9-15.3 [facility] Comment on above: Performed By: #### C BC MG, CMP #### [address] Hematocrit (Bld) [Volume fraction] 43.0 % Normal 34.0-46.4 [facility] Comment on above: Performed By: #### C BC, MG, CMP #### [place] [address] [place] Hemoglobin (Bld) [Mass/Vol] 14.3 g/dL Normal 11.8-15.4 [facility] Comment on above: Performed By: #### C BC, MG, CMP #### [place] [address] [place] Lymphocytes (Bld) [#/Vol] 1.8 10*3/uL Normal 1.00-4.8 [facility] Comment on above: Performed By: #### C BC, MG, CMP #### [address] Lymphocytes/100 WBC (Bld) 18.9 % Normal . [facility] Comment on above: Performed By: #### C BC, MG, CMP #### [facility] [address] MCH (RBC) [Entitic mass] 29.0 pg Normal 24.7-34.3 [facility] Comment on above: Performed By: #### C BC, MG, CMP #### [address] MCV (RBC) [Entitic vol] 87.0 fL Normal 80-100 [facility] Comment on above: Performed By: #### C BC, MG, CMP #### [address] Mean Corpuscular HGB Conc 33.4 g/dL Normal 32.0-35.0 [facility] Comment on above: Performed By: #### C BC, MG, CMP #### [address] Monocytes (Bld) [#/Vol] 0.5 10*3/uL Normal 0.0-0.8 [facility] Comment on above: Performed By: #### C BC, MG, CMP #### [address] Monocytes/100 WBC (Bld) 5.5 % Normal . [facility] Comment on above: Performed By: #### C BC, MG, CMP #### [address] Neutrophils (Bld) [#/Vol] 7.0 10*3/uL Normal 1.8-7.7 [facility] Comment on above: Performed By: #### C BC, MG, CMP #### [address] Neutrophils/100 WBC (Bld) 72.9 % Normal . [facility] Comment on above: Performed By: #### C BC, MG, CMP #### [address] NRBC% 0.0 /100{WBC} Normal 0-0.5 The [facility] Comment on above: Performed By: #### C BC, MG, CMP #### [address] Platelet mean volume (Bld) [Entitic vol] 8.9 fL Normal 6.3-10.7 The [facility] Comment on above: Performed By: #### C BC, MG, CMP #### [address] Platelets (Bld) [#/Vol] 289 10*3/uL Normal 150-450 [facility] Comment on above: Performed By: #### C BC, MG, CMP #### [address] RBC (Bld) [#/Vol] 4.94 10*6/uL Normal 3.60-5.00 The [facility] Comment on above: Performed By: #### C BC, MG, CMP #### [address] WBC (Bld) [#/Vol] 9.6 10*3/uL Normal 3.8-11.6 The [facility] Comment on above: Performed By: #### C BC, MG, CMP #### [address] Comprehensive Metabolic Pane [place] 03-05-2024 Albumin [Mass/Vol] 4.4 g/dL Normal 3.5-5.7 [facility] Comment on above: Performed By: #### C BC, MG, CMP #### [address] Albumin/Globulin [Mass ratio] 1.3 {ratio} Normal [facility] Comment on above: Performed By: #### C BC, MG, CMP #### [address] ALP [Catalytic activity/Vol] 79 U/L Normal 34-104 [facility] Comment on above: Performed By: #### C BC, MG, CMP #### [facility] [address] ALT [Catalytic activity/Vol] 23 U/L Normal 7-52 [facility] Comment on above: Performed By: #### C BC, MG, CMP #### [facility] [address] Anion gap [Moles/Vol] 15.4 mmol/L High 6.0-15.0 Th e [facility] Comment on above: Performed By: #### C BC, MG, CMP #### [facility] [address] AST [Catalytic activity/Vol] 36 U/L Normal 13-39 [facility] Comment on above: Performed By: #### C BC, MG, CMP #### [facility] [address] Bilirubin [Mass/Vol] 0.4 mg/dL Normal 0.3-1.0 [facility] Comment on above: Performed By: #### C BC, MG, CMP #### [facility] [address] [place] [address] [place] Calcium [Mass/Vol] 9.5 mg/dL Normal 8.6-10.3 [facility] Comment on above: Performed By: #### C BC, MG, CMP #### [facility] [address] [place] [address] [place] Chloride [Moles/Vol] 106 mmol/L Normal 98-107 [facility] Comment on above: Performed By: #### C BC, MG, CMP #### [facility] [address] [place] [id number] [place] CO2 [Moles/Vol] 23.1 mmol/L Normal 21.0-31.0 [facility] Comment on above: Performed By: #### C BC, MG, CMP #### [facility] [address] [place] [id number] [place] Creatinine [Mass/Vol] 0.96 mg/dL Normal 0.60-1.20 [facility] Comment on above: Performed By: #### C BC, MG, CMP #### [address] Creatinine Clr Calc Pharmacy 84.51 Normal [facility] Comment on above: Performed By: #### C BC, MG, CMP #### [place] [address] [place] GFR/1.73 sq M.predicted MDRD (S/P/Bld) [Vol rate/Area] mL/min/{1.73_m2} Normal [facility] Comment on above: Performed By: #### C BC, MG, CMP #### [address] Globulin (S) [Mass/Vol] 3.3 g/dL Normal [facility] Comment on above: Performed By: #### C BC, MG, CMP #### [address] Glucose [Mass/Vol] 133 mg/dL High 70-100 [facility] Comment on above: Result Comment: [facility] Glucose Reference Range is dependent on time and content of last meal. Glucose of more than 200 mg/dL in a nonstressed, ambulatory subject supports the diagnosis of Diabetes Mellitus. ADA recommended reference range Performed By: #### C BC, MG, CMP #### [address] Potassium [Moles/Vol] 3.5 mmol/L Normal 3.5-5.1 [facility] Comment on above: Performed By: #### C BC, MG, CMP #### [address] Protein [Mass/Vol] 7.7 g/dL Normal 6.4-8.9 [facility] Comment on above: Performed By: #### C BC, MG, CMP #### [address] Sodium [Moles/Vol] 141 mmol/L Normal 136-145 [facility] Comment on above: Performed By: #### C BC, MG, CMP #### [address] Urea nitrogen [Mass/Vol] 18 mg/dL Normal 7-25 [facility] Comment on above: Performed By: #### C BC, MG, CMP #### [address] Magnesiumon 03-05-2024 Magnesium [Mass/Vol] 2.0 mg/dL Normal 1.9-2.7 [facility] Comment on above: Result Comment: PERF ORMED BY: [place] [address] PATHOLOGIST LNA ADIEL AGUSTIN M.D. Performed By: #### C BC, MG, CMP #### [address] Complete Blood Count Auto Di ffon 03-04-2024 Basophils (Bld) [#/Vol] 0.1 10*3/uL Normal 0.0-0.2 [facility] Comment on above: Result Comment: PERF ORMED BY: [place] [address] PATHOLOGIST LNA ADIEL AGUSTIN M.D. Performed By: #### C MP, MG, CBC #### [address] Basophils/100 WBC (Bld) 0.6 % Normal . [facility] Comment on above: Performed By: #### C MP, MG, CBC #### [address] Eosinophils (Bld) [#/Vol] 0.2 10*3/uL Normal 0.0-0.45 [facility] Comment on above: Performed By: #### C MP, MG, CBC #### [place] [address] [place] Eosinophils/100 WBC (Bld) 1.9 % Normal . [facility] Comment on above: Performed By: #### C MP, MG, CBC #### [address] Erythrocyte distribution width (RBC) [Ratio] 14.6 % Normal 11.9-15.3 [facility] Comment on above: Performed By: #### C MP, MG, CBC #### [address] Hematocrit (Bld) [Volume fraction] 43.5 % Normal 34.0-46.4 [facility] Comment on above: Performed By: #### C MP, MG, CBC #### [address] Hemoglobin (Bld) [Mass/Vol] 14.4 g/dL Normal 11.8-15.4 [facility] Comment on above: Performed By: #### C MP, MG, CBC #### [address] Lymphocytes (Bld) [#/Vol] 1.8 10*3/uL Normal 1.00-4.8 [facility] Comment on above: Performed By: #### C MP, MG, CBC #### [address] Lymphocytes/100 WBC (Bld) 18.0 % Normal . [facility] Comment on above: Performed By: #### C MP, MG, CBC #### [address] MCH (RBC) [Entitic mass] 28.8 pg Normal 24.7-34.3 [facility] Comment on above: Performed By: #### C MP, MG, CBC #### [address] MCV (RBC) [Entitic vol] 87.0 fL Normal 80-100 [facility] Comment on above: Performed By: #### C MP, MG, CBC #### [address] Mean Corpuscular HGB Conc 33.2 g/dL Normal 32.0-35.0 [facility] Comment on above: Performed By: #### C MP, MG, CBC #### [facility] [address] [place] [address] [place] Monocytes (Bld) [#/Vol] 0.8 10*3/uL Normal 0.0-0.8 [facility] Comment on above: Performed By: #### C MP, MG, CBC #### [facility] [address] [place] [address] [place] Monocytes/100 WBC (Bld) 8.2 % Normal . [facility] Comment on above: Performed By: #### C MP, MG, CBC #### [facility] [address] [place] [address] [place] Neutrophils (Bld) [#/Vol] 7.3 10*3/uL Normal 1.8-7.7 [facility] Comment on above: Performed By: #### C MP, MG, CBC #### [facility] [address] [place] [address] [place] Neutrophils/100 WBC (Bld) 71.3 % Normal . [facility] Comment on above: Performed By: #### C MP, MG, CBC #### [facility] [address] [place] [address] [place] NRBC% 0.1 /100{WBC} Normal 0-0.5 [facility] Comment on above: Performed By: #### C MP, MG, CBC #### [facility] [address] [place] [address] [place] Platelet mean volume (Bld) [Entitic vol] 8.8 fL Normal 6.3-10.7 [facility] Comment on above: Performed By: #### C MP, MG, CBC #### [facility] [address] [place] [address] [place] Platelets (Bld) [#/Vol] 334 10*3/uL Normal 150-450 [facility] Comment on above: Performed By: #### C MP, MG, CBC #### [facility] [address] [place] [address] [place] RBC (Bld) [#/Vol] 5.01 10*6/uL High 3.60-5.00 [facility] Comment on above: Performed By: #### C MP, MG, CBC #### [address] WBC (Bld) [#/Vol] 10.3 10*3/uL Normal 3.8-11.6 [facility] Comment on above: Performed By: #### C MP, MG, CBC #### [address] Comprehensive Metabolic Pane [place] 03-04-2024 Albumin [Mass/Vol] 4.5 g/dL Normal 3.5-5.7 [facility] Comment on above: Performed By: #### C MP, MG, CBC #### [address] Albumin/Globulin [Mass ratio] 1.4 {ratio} Normal [facility] Comment on above: Performed By: #### C MP, MG, CBC #### [address] ALP [Catalytic activity/Vol] 79 U/L Normal 34-104 [facility] Comment on above: Performed By: #### C MP, MG, CBC #### [address] ALT [Catalytic activity/Vol] 19 U/L Normal 7-52 [facility] Comment on above: Performed By: #### C MP, MG, CBC #### [address] Anion gap [Moles/Vol] 11.4 mmol/L Normal 6.0-15.0 e [facility] Comment on above: Performed By: #### C MP, MG, CBC #### [address] AST [Catalytic activity/Vol] 37 U/L Normal 13-39 [facility] Comment on above: Performed By: #### C MP, MG, CBC #### [address] Bilirubin [Mass/Vol] 0.5 mg/dL Normal 0.3-1.0 [facility] Comment on above: Performed By: #### C MP, MG, CBC #### [facility] [address] Calcium [Mass/Vol] 9.6 mg/dL Normal 8.6-10.3 [facility] Comment on above: Performed By: #### C MP, MG, CBC #### [facility] [address] [place] [address] [place] Chloride [Moles/Vol] 107 mmol/L Normal 98-107 [facility] Comment on above: Performed By: #### C MP, MG, CBC #### [facility] [address] CO2 [Moles/Vol] 27.4 mmol/L Normal 21.0-31.0 [facility] Comment on above: Performed By: #### C MP, MG, CBC #### [place] [address] [place] Creatinine [Mass/Vol] 0.91 mg/dL Normal 0.60-1.20 [facility] Comment on above: Performed By: #### C MP, MG, CBC #### [facility] [address] [place] [address] [place] Creatinine Clr Calc Pharmacy 90.12 Normal [facility] Comment on above: Performed By: #### C MP, MG, CBC #### [facility] [address] [place] [address] [place] GFR/1.73 sq M.predicted MDRD (S/P/Bld) [Vol rate/Area] mL/min/{1.73_m2} Normal [facility] Comment on above: Performed By: #### C MP, MG, CBC #### [facility] [address] [place] [address] [place] Globulin (S) [Mass/Vol] 3.2 g/dL Normal [facility] Comment on above: Performed By: #### C MP, MG, CBC #### [facility] [address] [place] [address] [place] Glucose [Mass/Vol] 100 mg/dL Normal 70-100 [facility] Comment on above: Result Comment: [place] Glucose Reference Range is dependent on time and content of last meal. Glucose of more than 200 mg/dL in a nonstressed, ambulatory subject supports the diagnosis of Diabetes Mellitus. ADA recommended reference range Performed By: #### C MP, MG, CBC #### [facility] [address] Potassium [Moles/Vol] 3.8 mmol/L Normal 3.5-5.1 [facility] Comment on above: Performed By: #### C MP, MG, CBC #### [facility] [address] [place] [address] [facility] Protein [Mass/Vol] 7.7 g/dL Normal 6.4-8.9 [facility] Comment on above: Performed By: #### C MP, MG, CBC #### [facility] [address] [place] [address] [place] Sodium [Moles/Vol] 142 mmol/L Normal 136-145 [facility] Comment on above: Performed By: #### C MP, MG, CBC #### [facility] [address] [place] [id number] [place] Urea nitrogen [Mass/Vol] 15 mg/dL Normal 7-25 [facility] Comment on above: Performed By: #### C MP, MG, CBC #### [place] [id number] [facility] MR head/brain wo/w conon MR head/brain wo/w con [facility] [place] [address] MRI Report Signed Patient: Michelle Be MR#: [id number] : 1960 Acct:[id number] Age/Sex: 63 / F ADM Date: 03/03/24 Loc: Room: [address] [place] [address] Type: ADM IN Attending Dr: Delta Gan [...] Willi Guadalupe M.D.03/04/2024 2:32 PM Dictation Location: [place] [address] Transcribed By: [facility] 03/04/24 1432 Dictated By: Willi Guadalupe II, MD 03/04/24 1424 Signed By: 03/04/24 1432 Normal [facility] Magnesiumon 03-04-2024 Magnesium [Mass/Vol] 2.0 mg/dL Normal 1.9-2.7 [facility] Comment on above: Result Comment: PERF ORMED BY: [place] [address] PATHOLOGIST LNA ADIEL AGUSTIN M.D. Performed By: #### C MP, MG, CBC #### [address] Complete Blood Count Auto Di ffon 03-03-2024 Basophils (Bld) [#/Vol] 0.1 10*3/uL Normal 0.0-0.2 [facility] Comment on above: Order Comment: RIN T O COME TRY,KAH,1606 Result Comment: PERF ORMED BY: [place] [address] PATHOLOGIST LNA ADIEL AGUSTIN M.D. Performed By: #### C BC, CMP #### [place] [address] [place] Basophils/100 WBC (Bld) 0.6 % Normal . [facility] Comment on above: Order Comment: RIN T O COME TRY,KAH,1606 Performed By: #### C BC, CMP #### [place] [address] [place] Eosinophils (Bld) [#/Vol] 0.1 10*3/uL Normal 0.0-0.45 [facility] Comment on above: Order Comment: RIN T O COME TRY,KAH,1606 Performed By: #### C BC, CMP #### [place] [address] [place] Eosinophils/100 WBC (Bld) 1.0 % Normal . [facility] Comment on above: Order Comment: RIN T O COME TRY,KAH,1606 Performed By: #### C BC, CMP #### [address] Erythrocyte distribution width (RBC) [Ratio] 14.6 % Normal 11.9-15.3 [facility] Comment on above: Order Comment: RIN T O COME TRY,KAH,1606 Performed By: #### C BC, CMP #### [place] [address] [place] Hematocrit (Bld) [Volume fraction] 42.9 % Normal 34.0-46.4 [facility] Comment on above: Order Comment: RIN T O COME TRY,KAH,1606 Performed By: #### C BC, CMP #### [place] [address] [place] Hemoglobin (Bld) [Mass/Vol] 14.5 g/dL Normal 11.8-15.4 [facility] Comment on above: Order Comment: RIN T O COME TRY,KAH,1607 Performed By: #### C BC, CMP #### [address] Lymphocytes (Bld) [#/Vol] 1.7 10*3/uL Normal 1.00-4.8 [facility] Comment on above: Order Comment: RIN T O COME TRY,KAH,1607 Performed By: #### C BC, CMP #### [address] Lymphocytes/100 WBC (Bld) 15.7 % Normal . [facility] Comment on above: Order Comment: RIN T O COME TRY,KAH,1607 Performed By: #### C BC, CMP #### [address] MCH (RBC) [Entitic mass] 29.1 pg Normal 24.7-34.3 [facility] Comment on above: Order Comment: RIN T O COME TRY,KAH,1607 Performed By: #### C BC, CMP #### [address] MCV (RBC) [Entitic vol] 85.9 fL Normal 80-100 [facility] Comment on above: Order Comment: RIN T O COME TRY,KAH,1607 Performed By: #### C BC, CMP #### [address] Mean Corpuscular HGB Conc 33.8 g/dL Normal 32.0-35.0 [facility] Comment on above: Order Comment: RIN T O COME TRY,KAH,1607 Performed By: #### C BC, CMP #### [address] Monocytes (Bld) [#/Vol] 0.9 10*3/uL High 0.0-0.8 [facility] Comment on above: Order Comment: RIN T O COME TRY,KAH,1607 Performed By: #### C BC, CMP #### [facility] [address] [place] [address] [place] Monocytes/100 WBC (Bld) 8.4 % Normal . [facility] Comment on above: Order Comment: RIN T O COME TRY,KAH,1607 Performed By: #### C BC, CMP #### [facility] [address] [place] [address] [place] Neutrophils (Bld) [#/Vol] 8.0 10*3/uL High 1.8-7.7 [facility] Comment on above: Order Comment: RIN T O COME TRY,KAH,1607 Performed By: #### C BC, CMP #### [facility] [address] Neutrophils/100 WBC (Bld) 74.3 % Normal . [facility] Comment on above: Order Comment: RIN T O COME TRY,KAH,1607 Performed By: #### C BC, CMP #### [facility] [address] [place] [address] [place] NRBC% 0.1 /100{WBC} Normal 0-0.5 [facility] Comment on above: Order Comment: RIN T O COME TRY,KAH,1607 Performed By: #### C BC, CMP #### [address] Platelet mean volume (Bld) [Entitic vol] 8.9 fL Normal 6.3-10.7 [facility] Comment on above: Order Comment: RIN T O COME TRY,KAH,1607 Performed By: #### C BC, CMP #### [facility] [address] [place] [address] [place] Platelets (Bld) [#/Vol] 291 10*3/uL Normal 150-450 [facility] Comment on above: Order Comment: RIN T O COME TRY,KAH,1607 Performed By: #### C BC, CMP #### [facility] [address] [place] [address] [place] RBC (Bld) [#/Vol] 4.99 10*6/uL Normal 3.60-5.00 [facility] Comment on above: Order Comment: RIN T O COME TRY,KAH,1607 Performed By: #### C BC, CMP #### [facility] [address] WBC (Bld) [#/Vol] 10.7 10*3/uL Normal 3.8-11.6 [facility] Comment on above: Order Comment: RIN T O COME TRY,KAH,1607 Performed By: #### C BC, CMP #### [facility] [address] Comprehensive Metabolic Pane [place] 03-03-2024 Albumin [Mass/Vol] 4.6 g/dL Normal 3.5-5.7 [facility] Comment on above: Order Comment: RIN T O COME TRY,KAH,1607 Performed By: #### C BC, CMP #### [address] Albumin/Globulin [Mass ratio] 1.4 {ratio} Normal [facility] Comment on above: Order Comment: RIN T O COME TRY,KAH,1607 Performed By: #### C BC, CMP #### [address] ALP [Catalytic activity/Vol] 80 U/L Normal 34-104 [facility] Comment on above: Order Comment: RIN T O COME TRY,KAH,1607 Performed By: #### C BC, CMP #### [address] ALT [Catalytic activity/Vol] 16 U/L Normal 7-52 [facility] Comment on above: Order Comment: RIN T O COME TRY,KAH,1607 Performed By: #### C BC, CMP #### [address] Anion gap [Moles/Vol] 13.6 mmol/L Normal 6.0-15.0 Th e [facility] Comment on above: Order Comment: RIN T O COME TRY,KAH,1607 Performed By: #### C BC, CMP #### [address] AST [Catalytic activity/Vol] 35 U/L Normal 13-39 [facility] Comment on above: Order Comment: RIN T O COME TRY,KAH,1607 Performed By: #### C BC, CMP #### [facility] [address] Bilirubin [Mass/Vol] 0.3 mg/dL Normal 0.3-1.0 [facility] Comment on above: Order Comment: RIN T O COME TRY,KAH,1607 Performed By: #### C BC, CMP #### [facility] [address] Calcium [Mass/Vol] 9.3 mg/dL Normal 8.6-10.3 [facility] Comment on above: Order Comment: RIN T O COME TRY,KAH,160 Performed By: #### C BC, CMP #### [address] Chloride [Moles/Vol] 109 mmol/L High 98-107 [facility] Comment on above: Order Comment: RIN T O COME TRY,KAH,160 Performed By: #### C BC, CMP #### [place] [address] [place] CO2 [Moles/Vol] 22.4 mmol/L Normal 21.0-31.0 [facility] Comment on above: Order Comment: RIN T O COME TRY,KAH,1607 Performed By: #### C BC, CMP #### [facility] [address] [place], [place] [id number] [place] Creatinine [Mass/Vol] 0.93 mg/dL Normal 0.60-1.20 [facility] Comment on above: Order Comment: RIN T O COME TRY,KAH,1607 Performed By: #### C BC, CMP #### [facility] [address] [place] [address] [place] Creatinine Clr Calc Pharmacy 87.94 Normal [facility] Comment on above: Order Comment: RIN T O COME TRY,KAH,160 Result Comment: PERF ORMED BY: [place] [address] PATHOLOGIST LNA ADIEL AGUSTIN M.D. Performed By: #### C BC, CMP #### [facility] [address] [place] [address] [place] GFR/1.73 sq M.predicted MDRD (S/P/Bld) [Vol rate/Area] mL/min/{1.73_m2} Normal [facility] Comment on above: Order Comment: REY T O COME CHIQUITA,WEN,1606 Performed By: #### C BC, CMP #### [facility] [address] [place] [id number] [place] Globulin (S) [Mass/Vol] 3.2 g/dL Normal [facility] Comment on above: Order Comment: RIN T O COME TRY,KAH,1606 Performed By: #### C BC, CMP #### [address] Glucose [Mass/Vol] 105 mg/dL High 70-100 [facility] Comment on above: Order Comment: RIN T O COME TRY,KAH,1606 Result Comment: [facility] Glucose Reference Range is dependent on time and content of last meal. Glucose of more than 200 mg/dL in a nonstressed, ambulatory subject supports the diagnosis of Diabetes Mellitus. ADA recommended reference range Performed By: #### C BC, CMP #### [address] Potassium [Moles/Vol] 4.0 mmol/L Normal 3.5-5.1 [facility] Comment on above: Order Comment: RIN T O COME CHIQUITA,WEN,1606 Performed By: #### C BC, CMP #### [facility] [address] [place] [address] [place] Protein [Mass/Vol] 7.8 g/dL Normal 6.4-8.9 [facility] Comment on above: Order Comment: RIN T O COME TRY,KAH,1606 Performed By: #### C BC, CMP #### [place] [id number] [facility] Sodium [Moles/Vol] 141 mmol/L Normal 136-145 [facility] Comment on above: Order Comment: RIN T O COME TRY,WEN,1607 Performed By: #### C BC, CMP #### [facility] [address] Urea nitrogen [Mass/Vol] 15 mg/dL Normal 7-25 [facility] Comment on above: Order Comment: REY PORRAS,WEN,1607 Performed By: #### C BC, CMP #### [facility] [address] [place] [id number] [facility] IGP,APTIMA HPV,AGE GDLNon AGE GDLN ACOG TESTING Note . [facility] Comment on above: TESTS RESULT FLAG UN ITS REF RANGE LAB Clinician Provided Cytology Information Source.............Cervix;Endocervix No. of containers..01 ThinPrep Vial Age Algo ACOG Tona... 30-65 01 FLAG LEGEND: L-Low Normal,H-High Normal,LL-Alert Low,HH-Alert High <-Panic Low,>-Panic High,A-Abnormal,AA-Critical Abnormal Performed at: 01 =[address] [address] Farzana Hennessy MD, HPV APTIMA Negative Negative [facility] Comment on above: This nucleic acid am plification test detects fourteen high- risk HPV types (16,18,31,33,35,39,45,51,52,56,58,59,66,68) without differentiation. Performed at: =G - [facility] [address], [place] [id number] [employer] Vat Tender: Farzana Hennessy MD, Phone: [phone] Performed at: [facility] [address] [place], [place] [id number] [employer] Dyeing Vat Tender: Scott Sandoval MD, Phone: [phone] IGP, APTIMA HPV, RFX 16/18,45 Note . [facility] Comment on above: TESTS RESULT FLAG UN ITS REF RANGE LAB DIAGNOSIS: 02 NEGATIVE FOR INTRAEPITHELIAL LESION OR MALIGNANCY. Specimen adequacy: 02 Satisfactory for evaluation. Endocervical and/or squamous metaplastic cells (endocervical component) are present. Performed by: Lg Bustamante, Acquisitions Assistant (ASC) . 02 Note: Note 03 The [...] High,A-Abnormal,AA-Critical Abnormal Performed at: 02 K[facility] [place] [address] [address] [place] [address] Scott Sandoval MD, 03 WB [facility] [address] [address] Farzana Hennessy MD, BROOM-ALONE CERVIX ENDOCERVIX [facility] Urinalysis macro (dipstick) panel (U)on 01-28-2024 Bilirubin, UA Negative Negative - 4(70) +++ mg/dL [facility] Blood, UA Negative Negative - 50 Kranthi/mcL [facility] Clarity, UA Clear [facility] Color, UA Dark Tania [facility] Glucose, UA Negative Negative - 2000(110) ++++ mg/dL [facility] Interpretation and review of laboratory results Abnormal [facility] Ketones, UA Negative Negative - 160(16) ++++ mg/dL [facility] Leukocytes, UA Trace Negative - 500+++ Radha/mcL [facility] Nitrite, UA Negative Negative - Positive [facility] pH, UA 5.5 5 - 9 [facility] Protein, UA Negative Negative - 2000(20) ++++ mg/dL [facility] Spec Grav, UA 1.025 1 - 1.03 [facility] Urobilinogen, UA 0.2 0.2 - 12 mg/dL [facility] MHPT CULT,URINEon 01-23-2024 Interpretation and review of laboratory results Abnormal [facility] MHPT CULT,URINE Specimen Description .CLEAN CATCH URINE [facility]PT CULT,URINE Culture ESCHERICHIA COLI >100,000 CFU/ML Abnormal [facility] CULT,URINE STREPTOCOCCI, BETA HEMOLYTIC GROUP B 10 to 50,000 CFU/ML Abnormal [facility] CULT,URINE Report Status FINAL 01/23/2024 [facility] CULT,URINE SUSCEPTIBILITY [facility] CULT,URINE Organism ESCHERICHIA COLI [facility] CULT,URINE Method CROW [facility] CULT,URINE Ampicillin 16 INTERMEDIATE Intermediate [facility] CULT,URINE Cefazolin <=4 SUSCEPTIBLE Susceptible [facility] CULT,URINE Cefazolin sensitivit y results can be used to predict the effectiveness of oral Susceptible [facility] CULT,URINE cephalosporins (eg. Cephalexin) in uncomplicated Urinary Tract Infections due Susceptible [facility] CULT,URINE to E. coli, K. pneumoniae, and P. mirabilis Susceptible [facility] CULT,URINE Ceftriaxone <=0.25 SUSCEPTIBLE Susceptible [facility] CULT,URINE Negative Susceptible [facility] CULT,URINE Gentamicin <=1 SUSCEPTIBLE Susceptible [facility] CULT,URINE Levofloxacin <=0.12 SUSCEPTIBLE Susceptible [facility] CULT,URINE Nitrofurantoin <=16 SUSCEPTIBLE Susceptible [facility] CULT,URINE Piperacillin/Tazobac ta m <=4 SUSCEPTIBLE Susceptible [facility] CULT,URINE Tobramycin <=1 SUSCEPTIBLE Susceptible [facility] CULT,URINE Trimethoprim/Sulfa <=20 SUSCEPTIBLE Susceptible [facility]OL[facility] PANELon 01-05-2024 Anion gap [Moles/Vol] 11.1 mmol/L [facility] Calcium [Mass/Vol] 9.2 mg/dL 8.5 - 10. 1 mg/dL [facility] Chloride [Moles/Vol] 105 mmol/L 98 - 10 7 mmol/L [facility] CO2 [Moles/Vol] 28.0 mmol/L 21.0 - 32.0 mmol/L [facility] Creatinine [Mass/Vol] 1.08 mg/dL High 0.55 - 1.02 mg/dL [facility] GFR/1.73 sq M.predicted CKD-EPI (S/P/Bld) [Vol rate/Area] >60 60 - PINF [facility] Glucose [Mass/Vol] 92 mg/dL 74 - 106 mg/dL [facility] Interpretation and review of laboratory results Abnormal [facility] Potassium [Moles/Vol] 4.1 mmol/L 3.5 - 5.1 mmol/L [facility] Sodium [Moles/Vol] 140 mmol/L 136 - 145 mmol/L [facility] EGFR-NON AF BELARUSIAN 51 Low 60 - PINF [facility] Urea nitrogen [Mass/Vol] 17.0 mg/dL 7.0 - 18.0 mg/dL [facility] Urea nitrogen/Creatinine [Mass ratio] 15.7 mg/mg [facility] Amphetamine Screen Ql (U)Ord ered By: Jace Graham on 03-23-2023 Amphetamines Ql (U) Negative Negative [facility] Barbiturates [Presence] in U rine by Screen methodOrdered By: Jace Graham on 03-23-2023 Barbiturates Screen Ql (U) Negative Negative [facility] Benzodiazepines Screen Ql (U )Ordered By: Jace Graham on 03-23-2023 Benzodiazepines Ql (U) Negative Negative [facility] Benzoylecgonine [Presence] i n Urine by Screen methodOrdered By: Jace Graham on 03-23-2023 Benzoylecgonine Screen Ql (U) Negative Negative [facility] Cannabinoids [Presence] in U rine by Screen methodOrdered By: Jace Graham on 03-23-2023 Cannabinoids Screen Ql (U) Negative Negative [facility] Comment on above: These are unconfirme d results and should not be used for legal purposes. Drug Cut-Off Concentration: AMPH 1000 ng/mL ELKIN 200 ng/mL ATIYA 200 ng/mL COCM 300 ng/mL OP 300 ng/mL PCP 25 ng/mL THC 20 ng/mL Opiates [Presence] in Urine by Screen methodOrdered By: Jace Graham on 03-23-2023 Opiates Screen Ql (U) Negative Negative [facility] Phencyclidine Screen Ql (U)O rdered By: Jace Graham on 03-23-2023 Phencyclidine Ql (U) Negative Negative [facility] Cholesterol [Mass/volume] in Serum or PlasmaOrdered By: Eduardo Monk on 11-18-2022 Cholesterol [Mass/Vol] 159 mg/dL 140-200 [facility] Comment on above: Chol less than 200 m g/dl low riskChol 201-239 mg/dl borderline riskChol 240 mg/dl and greater high risk Cholesterol in LDL Calc [Mas s/Vol]Ordered By: Eduardo Monk on 11-18-2022 Cholesterol in LDL [Mass/Vol] 84 mg/dL 0-100 [facility] Comment on above: LDL ATP III CLASSIFI CATIONLDL less than 100 mg/dL OptimalLDL 100-129 mg/dL Near or above optimalLDL 130-159 mg/dL Borderline highLDL 160-189 mg/dL HighLDL greater than 189 mg/dL Very high Cholesterol in VLDL Calc [Ma ss/Vol]Ordered By: Eduardo Monk on 11-18-2022 Cholesterol in VLDL [Mass/Vol] 28 mg/dL [facility] Serum or plasma high density lipoprotein (HDL) cholesterol measurementOrdered By: Eduardo Monk on 11-18-2022 Cholesterol in HDL [Mass/Vol] 46 mg/dL 23-92 [facility] Comment on above: HDL CHOL ATP-III CLA SSIFICATION Cardiovascular RiskHDL > or equal to 60 mg/dL LOWHDL < 40 mg/dL HIGH Serum or plasma total choles terol/high density lipoprotein (HDL) cholesterol mass ratOrdered By: Eduardo Monk on 11-18-2022 Cholesterol.total/Chol esterol in HDL [Mass ratio] 3.5 {ratio} <5.0 [facility] Thyrotropin [Units/volume] i n Serum or PlasmaOrdered By: Eduardo Monk on 11-18-2022 TSH Qn 2.13 m[IU]/L 0.45-5.33 [facility] Triglyceride [Mass/volume] i n Serum or PlasmaOrdered By: Eduardo Monk on 11-18-2022 Triglyceride [Mass/Vol] 144 mg/dL 0-149 [facility] Comment on above: TRIG ATP III CLASSIF ICATIONTRIG less than 150 mg/dL NormalTRIG 150-199 mg/dL Borderline highTRIG 200-500 mg/dL High TRIG greater than 500 mg/dL Very highStandard traceable to the Center for Disease Conrtrol and Prevention (CDC) test method. Vitamin D+Metabolites [Mass/ volume] in Serum or PlasmaOrdered By: Eduardo Monk on 11-18-2022 Vitamin D+Metabolites [Mass/Vol] 50.4 ng/mL 30-100 [facility] Comment on above: VITAMIN D STATUS 25( OH)VITAMIN D RANGE (ng/mL) Deficient <20 Insufficient 20 to <30Sufficient 30 to 100Reference: Bin COLLAZO,Lakshmi CABRERA, Cristian SMART, et al. Evaluation,treatment, and prevention of vitamin D deficiency; an Endocrine Society clinical practice guideline. JCEM. 2010; 96(7):1911-30. CBC AUTO DIFFon 07-25-2022 BASO # 0.1 103/ul Normal 0.0-0.1 [facility] Comment on above: Performed By: #### A 1C #### [facility] [address] [address] [address] Bebeto Alvarado Basophils/100 WBC (Bld) 0.6 % Normal 0.2-2.0 [facility] Comment on above: Performed By: #### A 1C #### [facility] [address] [address] [address] Bebeto Alvarado EO # 0.2 103/ul Normal 0.0-0.7 [facility] Comment on above: Performed By: #### A 1C #### [facility] [address] [place] [address] Dr. Bebeto Alvarado Eosinophils/100 WBC (Bld) 2.3 % Normal 0.9-7.0 [facility] Comment on above: Performed By: #### A 1C #### [facility] [address] [place] [address] Dr. Bebeto Alvarado Erythrocyte distribution width (RBC) [Ratio] 13.8 % Normal 11.0-15.0 [facility] Comment on above: Performed By: #### A 1C #### [facility] [address] [place] [address] Dr. Bebeto Alvarado Hematocrit (Bld) [Volume fraction] 41.2 % Normal 36.0-48.0 [facility] Comment on above: Performed By: #### A 1C #### [facility] [address] [place] [address] Dr. Bebeto Alvarado Hemoglobin (Bld) [Mass/Vol] 13.2 g/dL Normal 12.0-16.0 [facility] Comment on above: Performed By: #### A 1C #### [facility] [address] [place] [address] Dr. Bebeto Alvarado IG # 0.03 10e3/ul Normal 0.00-0.03 [facility] Comment on above: Performed By: #### A 1C #### [facility] [address] [place] [address] Dr. Bebeto Alvarado IG % 0.4 % Normal 0.0-0.5 [facility] Comment on above: Performed By: #### A 1C #### [facility] [address] [place] [address] Dr. Bebeto Alvarado LYMPH # 2.1 103/ul Normal 1.2-3.8 [facility] Comment on above: Performed By: #### A 1C #### [facility] [address] [place] [address] Dr. Bebeto Alvarado Lymphocytes/100 WBC (Bld) 25.9 % Normal 20.5-60.0 [facility] Comment on above: Performed By: #### A 1C #### [facility] [address] [place] [address] Dr. Bebeto Alvarado MANUAL DIFF REQ NO Normal [facility] Comment on above: Performed By: #### A 1C #### [facility] [address] [place] [address] Dr. Bebeto Alvarado MCH (RBC) [Entitic mass] 28.0 pg Normal 26.7-34.0 [facility] Comment on above: Performed By: #### A 1C #### [facility] [address] [place] [address] Dr. Bebeto Alvarado MCHC (RBC) [Mass/Vol] 32.0 g/dL Normal 29.9-35.2 [facility] Comment on above: Performed By: #### A 1C #### [facility] [address] [place] [address] Dr. Bebeto Alvarado MCV (RBC) [Entitic vol] 87.5 fL Normal 81.0-99.0 [facility] Comment on above: Performed By: #### A 1C #### [facility] [address] [place] [address] Dr. Bebeto Alvarado MONO # 0.5 103/ul Normal 0.3-0.8 [facility] Comment on above: Performed By: #### A 1C #### [facility] [address] [address] [address] Bebeto Alvarado Monocytes/100 WBC (Bld) 6.6 % Normal 1.7-12.0 [facility] Comment on above: Performed By: #### A 1C #### [facility] [address] [place] [address] Dr. Bebeto Alvarado NEUT # 5.1 103/ul Normal 1.4-6.5 [facility] Comment on above: Performed By: #### A 1C #### [facility] [address] [place] [address] Dr. Bebeto Alvarado Neutrophils/100 WBC (Bld) 64.2 % Normal 43.0-75.0 [facility] Comment on above: Performed By: #### A 1C #### [facility] [address] [place] [address] Dr. Bebeto Alvarado Platelet mean volume (Bld) [Entitic vol] 11.2 fL Normal 9.5-13.5 [facility] Comment on above: Performed By: #### A 1C #### [facility] [address] [place] [address] Dr. Bebeto Alvarado PLT 252 103/ul Normal 150-450 [facility] Comment on above: Performed By: #### A 1C #### [facility] [address] [place] [address] Dr. Bebeto Alvarado RBC 4.71 106/ul Normal 4.20-5.40 [facility] Comment on above: Performed By: #### A 1C #### [facility] [address] [place] [address] Dr. Bebeto Alvarado WBC 8.0 103/ul Normal 4.0-11.0 [facility] Comment on above: Performed By: #### A 1C #### [facility] [address] [place] [address] Dr. Bebeto Alvarado GLYCOHEMOGLOBIN A1Con 2022 ADA RECOMMENDATION SEE BELOW Normal [facility] Comment on above: Result Comment: ADA RECOMMENDED LIMIT 4.0 - 6.0 ADA THERAPEUTIC TARGET < 7.0 ACTION SUGGESTED > 7.0 Performed By: #### A 1C #### [facility] [address] [address] [address] Bebeto Alvarado Glucose [Mass/Vol] 114 mg/dL Normal [facility] Comment on above: Performed By: #### A 1C #### [facility] [address] [place] [address] Dr. Bebeto Alvarado HbA1c (Bld) [Mass fraction] 5.6 % Normal 4.5-6.2 [facility] Comment on above: Performed By: #### A 1C #### [facility] [address] [place] [address] Dr. Bebeto Alvarado IRONon 07-25-2022 Iron [Mass/Vol] 60.0 ug/dL Normal 50.0-170.0 [facility] Comment on above: Performed By: #### V ITB12, IRON #### [facility] [address] [place] [address] Dr. Bebeto Alvarado LIPID PROFILEon 07-25-2022 CHOL-HDL RATIO NORM SEE BELOW Normal [facility] Comment on above: Result Comment: 3.3 - 4.4 LOW RISK 4.4 - 7.1 AVERAGE RISK 7.1 - 11.0 MODERATE RISK >11.0 HIGH RISK Performed By: #### C MP, LIPID #### [facility] [address] [place] [address] Dr. Bebeto Alvarado Cholesterol [Mass/Vol] 144 mg/dL Normal <=200 [facility] Comment on above: Performed By: #### C MP, LIPID #### [facility] [address] [place] [address] Dr. Bebeto Alvarado Cholesterol in HDL [Mass/Vol] 39 mg/dL Critically low 40-60 [facility] Comment on above: Performed By: #### C MP, LIPID #### [facility] [address] [place] [address] Dr. Bebeto Alvarado Cholesterol in LDL [Mass/Vol] 74.6 mg/dL Normal [facility] Comment on above: Performed By: #### C MP, LIPID #### [facility] [address] [address] [address] Bebeto Alvarado Cholesterol.total/Chol esterol in HDL [Mass ratio] 3.7 {ratio} Normal [facility] Comment on above: Performed By: #### C MP, LIPID #### [facility] [address] [address] [address] Bebeto Alvarado HDL NORMAL > or = 60 mg/dl - LO W CARDIOVASCULAR RISK <40 mg/dl - HIGH CARDIOVASCULAR RISK Normal [facility] Comment on above: Performed By: #### C MP, LIPID #### [facility] [address] [address] [address] Bebeto Alvarado LDL CALC NORMAL SEE BELOW Normal [facility] Comment on above: Result Comment: <100 mg/dl OPTIMAL 100 - 129 mg/dl NEAR OR ABOVE OPTIMAL 130 - 159 mg/dl BORDERLINE HIGH 160 - 189 mg/dl HIGH >190 mg/dl VERY HIGH Performed By: #### C MP, LIPID #### [facility] [address] [address] [address] Bebeto Alvarado Triglyceride [Mass/Vol] 152 mg/dL Critically high <=150 [facility] Comment on above: Performed By: #### C MP, LIPID #### [facility] [address] [place] [address] Dr. Bebeto Alvarado VLDL CALC 30.4 mg/dL Normal [facility] Comment on above: Performed By: #### C MP, LIPID #### [facility] [address] [address] [address] Bebeto Alvarado PROF 14(COMP METB)on 023 Albumin [Mass/Vol] 3.7 g/dL Normal 3.4-5.0 [facility] Comment on above: Performed By: #### C MP, LIPID #### [facility] [address] [place] [address] Dr. Bebeto Alvarado Albumin/Globulin [Mass ratio] 0.9 {ratio} Normal [facility] Comment on above: Performed By: #### C MP, LIPID #### [facility] [address] [place] [address] Dr. Bebeto Alvarado ALP [Catalytic activity/Vol] 90 U/L Normal 46-116 [facility] Comment on above: Performed By: #### C MP, LIPID #### [facility] [address] [place] [address] Dr. Bebeto Alvarado ALT [Catalytic activity/Vol] 38 U/L Normal 14-59 [facility] Comment on above: Performed By: #### C MP, LIPID #### [facility] [address] [place] [address] Dr. Bebeto Alvarado Anion gap [Moles/Vol] 12.1 mmol/L Normal [facility] Comment on above: Performed By: #### C MP, LIPID #### [facility] [address] [place] [address] Dr. Bebeto Alvarado AST [Catalytic activity/Vol] 26 U/L Normal 15-37 [facility] Comment on above: Performed By: #### C MP, LIPID #### [facility] [address] [place] [address] Dr. Bebeto Alvarado Bilirubin [Mass/Vol] 0.3 mg/dL Normal 0.2-1.0 [facility] Comment on above: Performed By: #### C MP, LIPID #### [facility] [address] [place] [address] Dr. Bebeto Alvarado Calcium [Mass/Vol] 9.3 mg/dL Normal 8.5-10.1 [facility] Comment on above: Performed By: #### C MP, LIPID #### [facility] [address] [place] [address] Dr. Bebeto Alvarado Chloride [Moles/Vol] 107 mmol/L Normal 98-107 [facility] Comment on above: Performed By: #### C MP, LIPID #### [facility] [address] [place] [address] Dr. Bebeto Alvarado CO2 [Moles/Vol] 27.9 mmol/L Normal 21.0-32.0 [facility] Comment on above: Performed By: #### C MP, LIPID #### [facility] [address] [place] [address] Dr. Bebeto Alvarado Creatinine [Mass/Vol] 0.95 mg/dL Normal 0.55-1.02 [facility] Comment on above: Performed By: #### C MP, LIPID #### [facility] [address] [place] [address] Dr. Bebeto Alvarado EGFR-AF BELARUSIAN >60 Normal >=60 [facility] Comment on above: Performed By: #### C MP, LIPID #### [facility] [address] [address] [address] Bebeto Alvarado EGFR-NON AF BELARUSIAN 60 mL/min/1.73m2 Normal >=60 [facility] Comment on above: Performed By: #### C MP, LIPID #### [facility] [address] [place] [address] Dr. Bebeto Alvarado Globulin (S) [Mass/Vol] 3.9 g/dL Normal [facility] Comment on above: Performed By: #### C MP, LIPID #### [facility] [address] [place] [address] Dr. Bebeto Alvarado Glucose [Mass/Vol] 108 mg/dL Critically high 74-106 [facility] Comment on above: Performed By: #### C MP, LIPID #### [facility] [address] [place] [address] Dr. Bebeto Alvarado Potassium [Moles/Vol] 4.0 mmol/L Normal 3.5-5.1 [facility] Comment on above: Performed By: #### C MP, LIPID #### [facility] [address] [place] [address] Dr. Bebeto Alvarado Protein [Mass/Vol] 7.6 g/dL Normal 6.4-8.2 [facility] Comment on above: Performed By: #### C MP, LIPID #### [facility] [address] [place] [address] Dr. Bebeto Alvarado Sodium [Moles/Vol] 143 mmol/L Normal 136-145 [facility] Comment on above: Performed By: #### C MP, LIPID #### [facility] [address] [place] [address] Dr. Bebeto Alvarado Urea nitrogen [Mass/Vol] 15.0 mg/dL Normal 7.0-18.0 [facility] Comment on above: Performed By: #### C MP, LIPID #### [facility] [address] [place] [address] Dr. Bebeto Alvarado Urea nitrogen/Creatinine [Mass ratio] 15.8 mg/mg Normal [facility] Comment on above: Performed By: #### C MP, LIPID #### [facility] [address] [place] [address] Dr. Bebeto Alvarado UA RANDOM W/MICROSCOPICon BACTERIA NONE SEEN Normal NONE SEEN [facility] Comment on above: Performed By: #### A 1C #### [facility] [address] [place] [address] Dr. Bebeto Alvarado Bilirubin Ql (U) Negative Normal NEGATIVE [facility] Comment on above: Performed By: #### A 1C #### [facility] [address] [place] [address] Dr. Bebeto Alvarado CAST NONE SEEN Normal NONE SEEN [facility] Comment on above: Performed By: #### A 1C #### [facility] [address] [place] [address] Dr. Bebeto Alvarado Clarity (U) CLEAR Normal CLEAR [facility] Comment on above: Performed By: #### A 1C #### [facility] [address] [place] [address] Dr. Bebeto Alvarado Color (U) YELLOW Normal YELLOW [facility] Comment on above: Performed By: #### A 1C #### [facility] [address] [place] [address] Dr. Bebeto Alvarado Crystals LM Nom (Urine sed) NONE SEEN Normal NONE SEEN [facility] Comment on above: Performed By: #### A 1C #### [facility] [address] [place] [address] Dr. Bebeto Alvarado Epithelial cells LM Ql (Urine sed) NONE SEEN Normal NONE SEEN /RARE [facility] Comment on above: Performed By: #### A 1C #### [facility] [address] [place] [address] Dr. Bebeto Alvarado Glucose Ql (U) Negative Normal NEGATIVE [facility] Comment on above: Performed By: #### A 1C #### [facility] [address] [address] [address] Bebeto Alvarado Hemoglobin Ql (U) Negative Normal NEGATIVE [facility] Comment on above: Performed By: #### A 1C #### [facility] [address] [place] [address] Dr. Bebeto Alvarado Ketones Ql (U) Negative Normal NEGATIVE [facility] Comment on above: Performed By: #### A 1C #### [facility] [address] [place] [address] Dr. Bebeto Alvarado LEUKOCYTES Negative Normal NEGATIVE [facility] Comment on above: Performed By: #### A 1C #### [facility] [address] [place] [address] Dr. Bebeto Alvarado MUCOUS NONE SEEN Normal NONE SEEN [facility] Comment on above: Performed By: #### A 1C #### [facility] [address] [place] [address] Dr. Bebeto Alvarado Nitrite Ql (U) Negative Normal NEGATIVE [facility] Comment on above: Performed By: #### A 1C #### [facility] [address] [place] [address] Dr. Bebeto Alvarado pH (U) 5.5 [pH] Normal 5-9 [facility] Comment on above: Performed By: #### A 1C #### [facility] [address] [place] [address] Dr. Bebeto Alvarado RBC NONE SEEN Abnormal 0-2 [facility] Comment on above: Performed By: #### A 1C #### [facility] [address] [place] [address] Dr. Bebeto Alvarado SPEC GRAVITY 1.030 Abnormal 1.005-<=1.02 5 [facility] Comment on above: Performed By: #### A 1C #### [facility] [address] [place] [address] Dr. Bebeto Alvarado UA PROTEIN Negative Normal NEGATIVE/ TRACE [facility] Comment on above: Performed By: #### A 1C #### [facility] [address] [place] [address] Dr. Bebeto Alvarado Urobilinogen Qn (U) 0.2 {Katerin'U}/dL Normal 0.2 - 1. 0 [facility] Comment on above: Performed By: #### A 1C #### [facility] [address] [place] [address] Dr. Bebeto Alvarado WBC NONE SEEN Normal NONE SEEN [facility] Comment on above: Performed By: #### A 1C #### [facility] [address] [place] [address] Dr. Bebeto Alvarado VITAMIN B12on 07-25-2022 Cobalamin (Vitamin B12) [Mass/Vol] 1684.0 pg/mL Critically high 193.0-986.0 [facility] Comment on above: Performed By: #### V ITB12, IRON #### [facility] [address] [place] [address] Dr. Bebeto Alvarado PROF CHEM 8 (BAS METB)on Anion gap [Moles/Vol] 12.2 mmol/L Normal [facility] Comment on above: Performed By: #### B MP #### [facility] [address] [place] [address] Dr. Bebeto Alvarado Calcium [Mass/Vol] 8.9 mg/dL Normal 8.5-10.1 [facility] Comment on above: Performed By: #### B MP #### [facility] [address] [place] [address] Dr. Bebeto Alvarado Chloride [Moles/Vol] 105 mmol/L Normal 98-107 [facility] Comment on above: Performed By: #### B MP #### [facility] [address] [place] [address] Dr. Bebeto Alvarado CO2 [Moles/Vol] 29.6 mmol/L Normal 21.0-32.0 [facility] Comment on above: Performed By: #### B MP #### [facility] [address] [place] [address] Dr. Bebeto Alvarado Creatinine [Mass/Vol] 0.95 mg/dL Normal 0.55-1.02 [facility] Comment on above: Performed By: #### B MP #### [facility] [address] [address] [address] Bebeto Alvarado EGFR-AF BELARUSIAN >60 Normal >=60 [facility] Comment on above: Performed By: #### B MP #### [facility] [address] [address] [address] Bebeto Alvarado EGFR-NON AF BELARUSIAN 60 mL/min/1.73m2 Normal >=60 [facility] Comment on above: Performed By: #### B MP #### [facility] [address] [address] [address] Bebeot Alvarado Glucose [Mass/Vol] 101 mg/dL Normal 74-106 [facility] Comment on above: Performed By: #### B MP #### [facility] [address] [address] [address] Bebeto Alvarado Potassium [Moles/Vol] 3.8 mmol/L Normal 3.5-5.1 [facility] Comment on above: Performed By: #### B MP #### [facility] [address] [address] [address] Bebeto Alvarado Sodium [Moles/Vol] 143 mmol/L Normal 136-145 [facility] Comment on above: Performed By: #### B MP #### [facility] [address] [address] [address] Bebeto Alvarado Urea nitrogen [Mass/Vol] 16.0 mg/dL Normal 7.0-18.0 [facility] Comment on above: Performed By: #### B MP #### [facility] [address] [address] [address] Bebeto Alvarado Urea nitrogen/Creatinine [Mass ratio] 16.8 mg/mg Normal [facility] Comment on above: Performed By: #### B MP #### [facility] [address] [place] [address] Dr. Bebeto Alvarado CBC AUTO DIFFon 11-21-2021 BASO # 0.1 103/ul Normal 0.0-0.1 [facility] Comment on above: Performed By: #### A 1C #### [facility] [address] [place] [address] Dr. Bebeto Alvarado Basophils/100 WBC (Bld) 1.0 % Normal 0.2-2.0 [facility] Comment on above: Performed By: #### A 1C #### [facility] [address] [place] [address] Dr. Bebeto Alvarado EO # 0.2 103/ul Normal 0.0-0.7 [facility] Comment on above: Performed By: #### A 1C #### [facility] [address] [place] [address] Dr. Bebeto Alvarado Eosinophils/100 WBC (Bld) 3.3 % Normal 0.9-7.0 [facility] Comment on above: Performed By: #### A 1C #### [facility] [address] [place] [address] Dr. Bebeto Alvarado Erythrocyte distribution width (RBC) [Ratio] 13.8 % Normal 11.0-15.0 [facility] Comment on above: Performed By: #### A 1C #### [facility] [address] [place] [address] Dr. Bebeto Alvarado Hematocrit (Bld) [Volume fraction] 38.8 % Normal 36.0-48.0 [facility] Comment on above: Performed By: #### A 1C #### [facility] [address] [place] [address] Dr. Bebeto Alvarado Hemoglobin (Bld) [Mass/Vol] 12.5 g/dL Normal 12.0-16.0 [facility] Comment on above: Performed By: #### A 1C #### [facility] [address] [place] [address] Dr. Bebeto Alvarado IG # 0.02 10e3/ul Normal 0.00-0.03 [facility] Comment on above: Performed By: #### A 1C #### [facility] [address] [place] [address] Dr. Bebeto Alvarado IG % 0.3 % Normal 0.0-0.5 [facility] Comment on above: Performed By: #### A 1C #### [facility] [address] [place] [address] Dr. Bebeto Alvarado LYMPH # 1.9 103/ul Normal 1.2-3.8 [facility] Comment on above: Performed By: #### A 1C #### [facility] [address] [place] [address] Dr. Bebeto Alvarado Lymphocytes/100 WBC (Bld) 29.6 % Normal 20.5-60.0 [facility] Comment on above: Performed By: #### A 1C #### [facility] [address] [place] [address] Dr. Bebeto Alvarado MANUAL DIFF REQ NO Normal [facility] Comment on above: Performed By: #### A 1C #### [facility] [address] [place] [address] Dr. Bebeto Alvarado MCH (RBC) [Entitic mass] 28.0 pg Normal 26.7-34.0 [facility] Comment on above: Performed By: #### A 1C #### [facility] [address] [place] [address] Dr. Bebeto Alvarado MCHC (RBC) [Mass/Vol] 32.2 g/dL Normal 29.9-35.2 [facility] Comment on above: Performed By: #### A 1C #### [facility] [address] [place] [address] Dr. Bebeto Alvarado MCV (RBC) [Entitic vol] 86.8 fL Normal 81.0-99.0 [facility] Comment on above: Performed By: #### A 1C #### [facility] [address] [place] [address] Dr. Bebeto Alvarado MONO # 0.4 103/ul Normal 0.3-0.8 [facility] Comment on above: Performed By: #### A 1C #### [facility] [address] [place] [address] Dr. Bebeto Alvarado Monocytes/100 WBC (Bld) 5.7 % Normal 1.7-12.0 [facility] Comment on above: Performed By: #### A 1C #### [facility] [address] [address] [address] Bebeto Alvarado NEUT # 3.8 103/ul Normal 1.4-6.5 [facility] Comment on above: Performed By: #### A 1C #### [facility] [address] [address] [address] Bebeto Alvarado Neutrophils/100 WBC (Bld) 60.1 % Normal 43.0-75.0 [facility] Comment on above: Performed By: #### A 1C #### [facility] [address] [address] [address] Bebeto Alvarado Platelet mean volume (Bld) [Entitic vol] 11.0 fL Normal 9.5-13.5 [facility] Comment on above: Performed By: #### A 1C #### [facility] [address] [place] [address] Dr. Bebeto Alvarado PLT 264 103/ul Normal 150-450 [facility] Comment on above: Performed By: #### A 1C #### [facility] [address] [address] [address] Bebeto Alvarado RBC 4.47 106/ul Normal 4.20-5.40 [facility] Comment on above: Performed By: #### A 1C #### [facility] [address] [address] [address] Bebeto Alvarado WBC 6.3 103/ul Normal 4.0-11.0 [facility] Comment on above: Performed By: #### A 1C #### [facility] [address] [place] [address] Dr. Bebeto Alvarado GLYCOHEMOGLOBIN A1Con 2021 ADA RECOMMENDATION SEE BELOW Normal [facility] Comment on above: Result Comment: ADA RECOMMENDED LIMIT 4.0 - 6.0 ADA THERAPEUTIC TARGET < 7.0 ACTION SUGGESTED > 7.0 Performed By: #### A 1C #### [facility] [address] [place] [address] Dr. Bebeto Alvarado Glucose [Mass/Vol] 105 mg/dL Normal [facility] Comment on above: Performed By: #### A 1C #### [facility] [address] [place] [address] Dr. Bebeto Alvarado HbA1c (Bld) [Mass fraction] 5.3 % Normal 4.5-6.2 [facility] Comment on above: Performed By: #### A 1C #### [facility] [address] [place] [address] Dr. Bebeto Alvarado IRONon 11-21-2021 Iron [Mass/Vol] 59.0 ug/dL Normal 50.0-170.0 [facility] Comment on above: Performed By: #### A 1C #### [facility] [address] [place] [address] Dr. Bebeto Alvarado LIPID PROFILEon 11-21-2021 CHOL-HDL RATIO NORM SEE BELOW Normal [facility] Comment on above: Result Comment: 3.3 - 4.4 LOW RISK 4.4 - 7.1 AVERAGE RISK 7.1 - 11.0 MODERATE RISK >11.0 HIGH RISK Performed By: #### C MP, LIPID #### [facility] [address] [place] [address] Dr. Bebeto Alvarado Cholesterol [Mass/Vol] 139 mg/dL Normal <=200 [facility] Comment on above: Performed By: #### C MP, LIPID #### [facility] [address] [place] [address] Dr. Bebeto Alvarado Cholesterol in HDL [Mass/Vol] 35 mg/dL Critically low 40-60 [facility] Comment on above: Performed By: #### C MP, LIPID #### [facility] [address] [address] [address] Bebeto Alvarado Cholesterol in LDL [Mass/Vol] 69.6 mg/dL Normal [facility] Comment on above: Performed By: #### C MP, LIPID #### [facility] [address] [place] [address] Dr. Bebeto Alvarado Cholesterol.total/Chol esterol in HDL [Mass ratio] 4.0 {ratio} Normal [facility] Comment on above: Performed By: #### C MP, LIPID #### [facility] [address] [place] [address] Dr. Bebeto Alvarado HDL NORMAL > or = 60 mg/dl - LO W CARDIOVASCULAR RISK <40 mg/dl - HIGH CARDIOVASCULAR RISK Normal [facility] Comment on above: Performed By: #### C MP, LIPID #### [facility] [address] [address] [address] Bebeto Alvarado LDL CALC NORMAL SEE BELOW Normal [facility] Comment on above: Result Comment: <100 mg/dl OPTIMAL 100 - 129 mg/dl NEAR OR ABOVE OPTIMAL 130 - 159 mg/dl BORDERLINE HIGH 160 - 189 mg/dl HIGH >190 mg/dl VERY HIGH Performed By: #### C MP, LIPID #### [facility] [address] [address] [address] Bebeto Alvarado Triglyceride [Mass/Vol] 172 mg/dL Critically high <=150 [facility] Comment on above: Performed By: #### C MP, LIPID #### [facility] [address] [place] [address] Dr. Bebeto Alvarado VLDL CALC 34.4 mg/dL Normal [facility] Comment on above: Performed By: #### C MP, LIPID #### [facility] [address] [address] [address] Bebeto Alvarado PROF 14(COMP METB)on 022 Albumin [Mass/Vol] 3.8 g/dL Normal 3.4-5.0 [facility] Comment on above: Performed By: #### C MP, LIPID #### [facility] [address] [address] [address] Bebeto Alvarado Albumin/Globulin [Mass ratio] 1.1 {ratio} Normal [facility] Comment on above: Performed By: #### C MP, LIPID #### [facility] [address] [address] [address] Bebeto Alvarado ALP [Catalytic activity/Vol] 96 U/L Normal 46-116 [facility] Comment on above: Performed By: #### C MP, LIPID #### [facility] [address] [address] [address] Bebeto Alvarado ALT [Catalytic activity/Vol] 25 U/L Normal 14-59 [facility] Comment on above: Performed By: #### C MP, LIPID #### [facility] [address] [address] [address] Bebeto Alvarado Anion gap [Moles/Vol] 11.8 mmol/L Normal [facility] Comment on above: Performed By: #### C MP, LIPID #### [facility] [address] [address] [address] Bebeto Alvarado AST [Catalytic activity/Vol] 20 U/L Normal 15-37 [facility] Comment on above: Performed By: #### C MP, LIPID #### [facility] [address] [address] [address] Bebeto Alvarado Bilirubin [Mass/Vol] 0.4 mg/dL Normal 0.2-1.0 [facility] Comment on above: Performed By: #### C MP, LIPID #### [facility] [address] [place] [address] Dr. Bebeto Alvarado Calcium [Mass/Vol] 8.8 mg/dL Normal 8.5-10.1 [facility] Comment on above: Performed By: #### C MP, LIPID #### [facility] [address] [place] [address] Dr. Bebeto Alvarado Chloride [Moles/Vol] 106 mmol/L Normal 98-107 [facility] Comment on above: Performed By: #### C MP, LIPID #### [facility] [address] [place] [address] Dr. Bebeto Alvarado CO2 [Moles/Vol] 27.0 mmol/L Normal 21.0-32.0 [facility] Comment on above: Performed By: #### C MP, LIPID #### [facility] [address] [place] [address] Dr. Bebeto Alvarado Creatinine [Mass/Vol] 0.97 mg/dL Normal 0.55-1.02 [facility] Comment on above: Performed By: #### C MP, LIPID #### [facility] [address] [address] [address] Bebeto Alvarado EGFR-AF BELARUSIAN >60 Normal >=60 [facility] Comment on above: Performed By: #### C MP, LIPID #### [facility] [address] [address] [address] Bebeto Alvarado EGFR-NON AF BELARUSIAN 59 mL/min/1.73m2 Critically low >=60 [facility] Comment on above: Performed By: #### C MP, LIPID #### [facility] [address] [address] [address] Bebeto Alvarado Globulin (S) [Mass/Vol] 3.4 g/dL Normal [facility] Comment on above: Performed By: #### C MP, LIPID #### [facility] [address] [address] [address] Bebeto Alvarado Glucose [Mass/Vol] 103 mg/dL Normal 74-106 [facility] Comment on above: Performed By: #### C MP, LIPID #### [facility] [address] [address] [address] Bebeto Alvarado Potassium [Moles/Vol] 3.8 mmol/L Normal 3.5-5.1 [facility] Comment on above: Performed By: #### C MP, LIPID #### [facility] [address] [address] [address] Bebeto Alvarado Protein [Mass/Vol] 7.2 g/dL Normal 6.4-8.2 [facility] Comment on above: Performed By: #### C MP, LIPID #### [facility] [address] [address] [address] Bebeto Alvarado Sodium [Moles/Vol] 141 mmol/L Normal 136-145 [facility] Comment on above: Performed By: #### C MP, LIPID #### [facility] [address] [address] [address] Bebeto Alvarado Urea nitrogen [Mass/Vol] 11.0 mg/dL Normal 7.0-18.0 [facility] Comment on above: Performed By: #### C MP, LIPID #### [facility] [address] [address] [address] Bebeto Alvarado Urea nitrogen/Creatinine [Mass ratio] 11.3 mg/mg Normal [facility] Comment on above: Performed By: #### C MP, LIPID #### [facility] [address] [place] [address] Dr. Bebeto Alvarado URIC ACID SERUMon 11-21-2021 Urate [Mass/Vol] 7.3 mg/dL Critically high 2.6-6.0 [facility] Comment on above: Performed By: #### A 1C #### [facility] [address] [place] [address] Dr. Bebeto Alvarado VITAMIN B12on 11-21-2021 Cobalamin (Vitamin B12) [Mass/Vol] 2123.0 pg/mL Critically high 193.0-986.0 [facility] Comment on above: Performed By: #### A 1C #### [facility] [address] [place] [address] Dr. Bebeto Alvarado Physician Referralon 022 Physician Referral [phone] [id number] Normal [facility] KNEE RIGHT 1 OR 2 VWSon KNEE RIGHT 1 OR 2 VWS [facility] Department of Radiology [address] [place] [id number] ======== Patient Name: MICHELLE BE : [...] , Exam: KNEE RIGHT 1 OR 2 [facility] ======== KNEE RIGHT 1 OR [...] Electronically signed by:Debra Del Cid. Transcribed by: [email or web address], User Resident: Electronically Signed by: DEBRA DEL CID @ 02/08/2019 11:16 AM Normal [facility] Comment on above: Order Comment: , Mabel ws (X-RAY, KNEE): Radiologic Protocol , Weight Bearing?: N , With or Without Brace/Cast/Collar: With , Views (X-RAY, KNEE): Radiologic Protocol , Weight Bearing?: N , With or Without Brace/Cast/Collar: With , , , Ordering Provider - AHSAN BINGHAM PA-C , KNEE RIGHT 1 OR 2 [facility] KNEE RIGHT 1 OR 2 S [facility] Department of Radiology [address] [place] [phone] ======== Patient Name: MICHELLE BE : 1960 Sex: F Age: Race: White Pt. Location: 84 Patient Status: Ordered Date: 12/07/2018 10:20:00 AM Completed Date: 12/07/2018 10:20 AM Requesting Provider: AHSAN BINGHAM Attending Provider: Report Copy To: Signs & Symptoms: S82.001A Unsp fracture of right patella, init for clos fx I10 History: [place] Comments: , , , Ordering Provider - [...] complications. Electronically signed by:Tomasz Stoll. Transcribed by: [email or web address], User Resident: Electronically Signed by: TOMASZ STOLL @ 12/07/2018 11:14 AM Normal [facility] Comment on above: Order Comment: , Vie ws (X-RAY, KNEE): Radiologic Protocol , Weight Bearing?: N , With or Without Brace/Cast/Collar: With , Views (X-RAY, KNEE): Radiologic Protocol , Weight Bearing?: N , With or Without Brace/Cast/Collar: With , , , Ordering Provider - AHSAN BINGHAM PA-C , KNEE RIGHT 1 OR 2 [facility] KNEE RIGHT 1 OR 2 [facility] Department of Radiology [address] [place] [phone] ======== Patient Name: MICHELLE BE : 1960 Sex: F Age: Race: White Pt. 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 Transcribed by: [email or web address], User Resident: Electronically Signed by: ANUP ELLISON @ 10/06/2018 02:48 PM Normal [facility] Comment on above: Order Comment: , Vie ws (X-RAY, KNEE): Radiologic Protocol , Weight Bearing?: N , With or Without Brace/Cast/Collar: With , Views (X-RAY, KNEE): Radiologic Protocol , Weight Bearing?: N , With or Without Brace/Cast/Collar: With , , , Ordering Provider - AHSAN BINGHAM PA-C , KNEE RIGHT 1 OR 2 [facility] 08-05 KNEE RIGHT 1 OR 2 [facility] Department of Radiology [address] [place] [phone] ======== Patient Name: MICHELLE BE : [...] effusion Electronically signed by:Anup Ellison. Transcribed by: [email or web address], User Resident: Electronically Signed by: ANUP ELLISON @ 08/26/2018 04:56 PM Normal [facility] Comment on above: Order Comment: , Mabel ws (X-RAY, KNEE): Radiologic Protocol , Weight Bearing?: N , With or Without Brace/Cast/Collar: With , Views (X-RAY, KNEE): Radiologic Protocol , Weight Bearing?: N , With or Without Brace/Cast/Collar: With , , , Ordering Provider - AHSAN BINGHAM PA-C , KNEE RIGHT 1 OR 2 Son 07-06 KNEE RIGHT 1 OR 2 S [facility] Department of Radiology [address] [place] [phone] ======== Patient Name: MICHELLE BE : [...] , Exam: KNEE RIGHT 1 OR 2 [facility] ======== KNEE RIGHT 1 OR [...] compartment Electronically signed by:Anup Ellison. Transcribed by: [email or web address], User Resident: Electronically Signed by: ANUP ELLISON @ 07/29/2018 03:41 PM Normal [facility] Comment on above: Order Comment: , Vie ws (X-RAY, KNEE): Radiologic Protocol , Weight Bearing?: N , With or Without Brace/Cast/Collar: With , Views (X-RAY, KNEE): Radiologic Protocol , Weight Bearing?: N , With or Without Brace/Cast/Collar: With , , , Ordering Provider - AHSAN BINGHAM PA-C , KNEE RIGHT 3 [facility] 9 KNEE RIGHT 3 [facility] Department of Radiology [address] [place] [phone] ======== Patient Name: MICHELLE BE : [...] knee Electronically signed by:Anup Ellison. Transcribed by: [email or web address], User Resident: Electronically Signed by: ANUP ELLISON @ 07/15/2018 03:31 PM Normal [facility] Comment on above: Order Comment: , Mabel ws (X-RAY, KNEE): Radiologic Protocol , Weight Bearing?: N , With or Without Brace/Cast/Collar: With , Views (X-RAY, KNEE): Radiologic Protocol , Weight Bearing?: N , With or Without Brace/Cast/Collar: With , , , Ordering Provider - AHSAN BINGHAM PA-C , Operative Reporton 9 Operative Report MR#: [id number] [facility] Pt. Name: Michelle Be Room [...] Duarte MD Date Trans: 07/03/2018 04:28 A/terry [id number] Normal [facility] *ANAEROBIC CULTUREon 019 *ANAEROBIC CULTURE Clinical Report: (D) Specimen/Source: SWAB/RT KNEE Collected: 07/02/2018 13:53 Status: Final Last Updated: 07/07/2018 08:02 CULT RES (Final) No Anaerobes Isolated 5 Days Normal [facility] Comment on above: Performed By: #### 3 0312 #### [address] *WOUND CULTUREon 07-02-2018 *WOUND CULTURE Clinical Report: (D) Specimen/Source: WOUND/INTRAOP SPEC Collected: 07/02/2018 13:53 Status: Final Last Updated: 07/07/2018 10:13 (1) #1 RT KNEE GRAM (Final) Rare Polys No Bacteria Seen CULT RES (Final) No Growth Day 5 Normal [facility] Comment on above: Order Comment: #1 RT KNEE Performed By: #### 3 0343 #### [address] KNEE RIGHT 1 OR 2 [facility] 06-05 KNEE RIGHT 1 OR 2 S [facility] Department of Radiology [address] [place] [phone] ======== Patient Name: MICHELLE BE : [...] Electronically signed by:Debra Del Cid. Transcribed by: [email or web address], User Resident: Electronically Signed by: DEBRA DEL CID @ 07/02/2018 02:03 PM Normal [facility] Comment on above: Order Comment: ORIF VS PERCUTANEOUS FIXATION RIGHT PATELLA POC GLUCOSE LABon 07-02-2018 Glucose [Mass/Vol] 108 mg/dL High 70-100 [facility] Comment on above: Performed By: #### 8 5499 #### [facility] [address] [facility] [place] [address], [facility] APTTon 06-30-2018 aPTT Coag (Bld) [Time] 30.6 s Normal 25.0-35.0 [facility] Comment on above: Result Comment: [...] THIS PURPOSE. Performed By: #### 5 6101, [id number] #### [facility] [address] [place] [address], [facility] BASIC METABOLIC PANELon 06-05 Calcium [Mass/Vol] 9.7 mg/dL Normal 8.6-10.3 [facility] Comment on above: Performed By: #### 0 0071 #### [facility] [address] [place] [address], [facility] Chloride [Moles/Vol] 102 mmol/L Normal 98-107 [facility] Comment on above: Performed By: #### 0 0071 #### [facility] [address] [place] [address], [facility] CO2 [Moles/Vol] 28 mmol/L Normal 21-31 [facility] Comment on above: Performed By: #### 0 0071 #### [facility] [address] [place] [address], [place] Creatinine [Mass/Vol] 1.20 mg/dL Normal 0.60-1.20 [facility] Comment on above: Performed By: #### 0 0071 #### [facility] [address] [place] [address], [place] GFR/1.73 sq M predicted among blacks MDRD (S/P/Bld) [Vol rate/Area] 56 ml/min/1.73sq m Abnormal >60 [facility] Comment on above: Performed By: #### 0 0071 #### [facility] [address] [place] [address], [place] GFR/1.73 sq M predicted among non-blacks MDRD (S/P/Bld) [Vol rate/Area] 47 ml/min/1.73sq m Abnormal >60 [facility] Comment on above: Performed By: #### 0 0071 #### [facility] [address] [place] [address], [place] Glucose [Mass/Vol] 97 mg/dL Normal 70-100 [facility] Comment on above: Performed By: #### 0 0071 #### [facility] [address] [place] [address], [place] Potassium [Moles/Vol] 4.1 mmol/L Normal 3.5-5.1 [facility] Comment on above: Performed By: #### 0 0071 #### [facility] [address] [place] [address], [place] Sodium [Moles/Vol] 137 mmol/L Normal 136-145 [facility] Comment on above: Performed By: #### 0 0071 #### [facility] [address] [place] [address], [place] Urea nitrogen [Mass/Vol] 19 mg/dL Normal 7-25 [facility] Comment on above: Performed By: #### 0 0071 #### [facility] [address] CBC W/DIFFon 06-30-2018 ABS BASOPHILS 0.1 10*3/uL Normal 0.0-0.2 [facility] Comment on above: Performed By: #### 5 0103 #### [facility] [address] ABS IMM GRANS 0.0 10*3/uL Normal 0.0-0.2 [facility] Comment on above: Performed By: #### 5 0103 #### [facility] [address] ABS NEUTROPHILS 6.4 10*3/uL Normal 1.6-7.6 [facility] Comment on above: Performed By: #### 5 0103 #### [facility] [address] Basophils/100 WBC (Bld) 0.7 % Normal 0.0-1.0 [facility] Comment on above: Performed By: #### 5 3 #### [facility] [address] Eosinophils (Bld) [#/Vol] 0.2 10*3/uL Normal 0.0-0.5 [facility] Comment on above: Performed By: #### 5 3 #### [facility] [address] [place] [address], [facility] Eosinophils/100 WBC (Bld) 1.5 % Normal 0.0-6.0 [facility] Comment on above: Performed By: #### 5 102 #### [facility] [address] [place] [address], [facility] Erythrocyte distribution width (RBC) [Ratio] 14.4 % Normal 11.5-15.0 [facility] Comment on above: Performed By: #### 5 0103 #### [facility] [address] [facility] Hematocrit (Bld) [Volume fraction] 40.6 % Normal 36.0-45.0 [facility] Comment on above: Performed By: #### 5 0103 #### [facility] 3000 [facility]. [address] Hemoglobin (Bld) [Mass/Vol] 13.3 g/dL Normal 12.0-15.0 [facility] Comment on above: Performed By: #### 5 3 #### [facility] [address] IMMATURE GRANS 0.4 % Normal 0.0-1.0 [facility] Comment on above: Performed By: #### 5 3 #### [facility] [address] Lymphocytes (Bld) [#/Vol] 2.6 10*3/uL Normal 1.2-4.0 [facility] Comment on above: Performed By: #### 5 3 #### [facility] [address] Lymphocytes/100 WBC (Bld) 26.5 % Normal 20.0-45.0 [facility] Comment on above: Performed By: #### 5 3 #### [facility] 3000 [facility]. [address] MCH (RBC) [Entitic mass] 27.4 pg Normal 27.0-33.0 [facility] Comment on above: Performed By: #### 5 3 #### [facility] [address] MCHC (RBC) [Mass/Vol] 32.8 g/dL Normal 32.0-35.0 [facility] Comment on above: Performed By: #### 5 102 #### [facility] [address] MCV (RBC) [Entitic vol] 83.5 fL Normal 82.0-98.0 [facility] Comment on above: Performed By: #### 102 #### [facility] [address] [place] [address], [facility] Monocytes (Bld) [#/Vol] 0.5 10*3/uL Normal 0.1-1.0 [facility] Comment on above: Performed By: #### 102 #### [facility] [address] MONOS 5.0 % Normal 5.0-12.0 [facility] Comment on above: Performed By: #### 102 #### [facility] [address] Neutrophils/100 WBC (Bld) 65.9 % Normal 40.0-72.0 [facility] Comment on above: Performed By: #### 102 #### [facility] [address] Nucleated RBC/100 WBC (Bld) [Ratio] 0 % Normal 0-0 [facility] Comment on above: Performed By: #### 5 102 #### [facility] [address] [place] [address], [facility] PLAT CNT 290 10*3/uL Normal 150-400 [facility] Comment on above: Performed By: #### 5 102 #### [facility] [address] [place] [address], [facility] RBC (Bld) [#/Vol] 4.86 10*6/uL Normal 3.80-5.00 [facility] Comment on above: Performed By: #### 102 #### [address] [place], [place] [id number] [place] [address] WBC (Bld) [#/Vol] 9.68 10*3/uL Normal 4.00-10.60 [facility] Comment on above: Performed By: #### 5 0103 #### [address] [address], [facility] KNEE RIGHT 1 OR 2 VWSon 06-05 KNEE RIGHT 1 OR 2 VWS [facility] Department of Radiology [address] [place] [id number] ======== Patient Name: MICHELLE BE : [...] Electronically signed by:Debra Del Cid. Transcribed by: [email or web address], User Resident: Electronically Signed by: DEBRA DEL CID @ 06/30/2018 11:52 AM Normal [facility] Comment on above: Order Comment: , Mabel ws (X-RAY, KNEE): Radiologic Protocol , Weight Bearing?: N , With or Without Brace/Cast/Collar: With , Views (X-RAY, KNEE): Radiologic Protocol , Weight Bearing?: N , With or Without Brace/Cast/Collar: With , , , Ordering Provider - AHSAN BINGHAM PA-C , PROTHROMBIN TIMEon 9 INR Coag (PPP) [Relative time] 0.98 {INR} Normal 0.91-1.16 [facility] Comment on above: Result Comment: [facility] P RECOMMENDED INR FOR WARFARIN THERAPY --------- [...] CHEST 1995;108:[id number]. Performed By: #### 5 6101, [id number] #### [address] PT Coag (PPP) [Time] 13.0 s Normal 12.3-14.8 [facility] Comment on above: Result Comment: ALL RESULTS MUST BE INTERPRETED WITH RESPECT TO BLOOD DRAWING ARTIFACT OR DILUTION ERROR OF ANTICOAGULANT AT THE TIME OF SAMPLING. Performed By: #### 5 6101, [id number] #### [address] KNEE RIGHT 3 [facility] 9 KNEE RIGHT 3 [facility] Department of Radiology [address] [place] [id number] ======== Patient Name: MICHELLE BE : [...] ZHANG PA-C , Exam: KNEE RIGHT 3 [facility] ======== KNEE RIGHT 3 [facility] 06/15/2018 1:34 PM EDT SIGNS [...] effusion Electronically signed by:Anup Ellison. Transcribed by: [email or web address], User Resident: Electronically Signed by: ANUP ELLISON @ 06/15/2018 03:50 PM Normal [facility] Comment on above: Order Comment: , Isaiah ght Bearing?: Y , Weight Bearing?: Y , , , Ordering Provider - AMPARO ZHANG PA-C , Vital Signs Date Time Vital Sign Value Performing Clinician Facility 11-18-2024 09:52-0400 Body height 162.6 cm Harrison Pocos DO Work Phone: [facility] 11-18-2024 09:52-0400 Body mass index (BMI) [Ratio] 47.55 kg/m2 Harrison Pocos DO Work Phone: [facility] 11-18-2024 09:52-0400 Body weight 125.65 kg Harrison Pocos DO Work Phone: [facility] 11-14-2024 10:16-0400 Body mass index (BMI) [Ratio] 47.62 kg/m2 Adelaida Aichholz [employer] Work Phone: [facility] 11-14-2024 10:16-0400 Body temperature 97.81 [degF] Adelaida Aichholz [employer] Work Phone: [facility] 11-14-2024 10:16-0400 Body weight 125.83 kg Adelaida Aichholz [employer] Work Phone: [facility] 11-14-2024 10:16-0400 Diastolic blood pressure 84 mm[Hg] Adelaida Aichholz [employer] Work Phone: [facility] 11-14-2024 10:16-0400 Heart rate 70 /min Adelaida Aichholz [employer] Work Phone: [facility] 11-14-2024 10:16-0400 Respiratory rate 20 /min Adelaida Aichholz [employer] Work Phone: [facility] 11-14-2024 10:16-0400 SaO2% (BldA) [Mass fraction] 98 % Adelaida Aichholz [employer] Work Phone: [facility] 11-14-2024 10:16-0400 Systolic blood pressure 124 mm[Hg] Adelaida Aichholz [employer] Work Phone: [facility] 10-27-2024 10:05-0400 Body height 162.6 cm Harrison Pocos DO Work Phone: [facility] 10-27-2024 10:05-0400 Body mass index (BMI) [Ratio] 47.55 kg/m2 Harrison Pocos DO Work Phone: [facility] 10-27-2024 10:05-0400 Body weight 125.65 kg Harrison Pocos DO Work Phone: [facility] 10-13-2024 08:42-0400 Body mass index (BMI) [Ratio] 48.75 kg/m2 Adelaida Kelsiez [employer] Work Phone: [facility] 10-13-2024 08:42-0400 Body temperature 98.49 [degF] Adelaida Merryholz [employer] Work Phone: [facility] 10-13-2024 08:42-0400 Body weight 128.82 kg Adelaida Kelsiez [employer] Work Phone: [facility] 10-13-2024 08:42-0400 Diastolic blood pressure 80 mm[Hg] Adelaida Merryholz [employer] Work Phone: [facility] 10-13-2024 08:42-0400 Heart rate 85 /min Adelaida Aichholz [employer] Work Phone: [facility] 10-13-2024 08:42-0400 Respiratory rate 20 /min Adelaida Merryholz [employer] Work Phone: [facility] 10-13-2024 08:42-0400 SaO2% (BldA) [Mass fraction] 95 % Adelaida Merryholz [employer] Work Phone: [facility] 10-13-2024 08:42-0400 Systolic blood pressure 132 mm[Hg] Adelaida Yinghholz [employer] Work Phone: [facility] 08-16-2024 11:25-0400 Body mass index (BMI) [Ratio] 48.23 kg/m2 Adelaida Merryholz [employer] Work Phone: [facility] 08-16-2024 11:25-0400 Body temperature 98.49 [degF] Adelaida Merryholz [employer] Work Phone: [facility] 08-16-2024 11:25-0400 Body weight 127.46 kg Adelaida Aichholz [employer] Work Phone: [facility] 08-16-2024 11:25-0400 Diastolic blood pressure 82 mm[Hg] Adelaida Aichholz [employer] Work Phone: [facility] 08-16-2024 11:25-0400 Heart rate 67 /min Adelaida Aichholz [employer] Work Phone: [facility] 08-16-2024 11:25-0400 Respiratory rate 18 /min Adelaida Aichholz [employer] Work Phone: [facility] 08-16-2024 11:25-0400 SaO2% (BldA) [Mass fraction] 97 % Adelaida Aichholz [employer] Work Phone: [facility] 08-16-2024 11:25-0400 Systolic blood pressure 120 mm[Hg] Adelaida Aichholz [employer] Work Phone: [facility] 07-27-2024 11:16-0400 Body mass index (BMI) [Ratio] 50.67 kg/m2 Adelaida Aichholz [employer] Work Phone: [facility] 07-27-2024 11:16-0400 Body temperature 98.8 [degF] Adelaida Aichholz [employer] Work Phone: [facility] 07-27-2024 11:16-0400 Body weight 133.9 kg Adelaida Aichholz [employer] Work Phone: [facility] 07-27-2024 11:16-0400 Diastolic blood pressure 86 mm[Hg] Adelaida Aichholz [employer] Work Phone: [facility] 07-27-2024 11:16-0400 Heart rate 82 /min Adelaida Aichholz [employer] Work Phone: [facility] 07-27-2024 11:16-0400 Respiratory rate 24 /min Adelaida Aichholz [employer] Work Phone: [facility] 07-27-2024 11:16-0400 SaO2% (BldA) [Mass fraction] 97 % Adelaida Carrion [employer] Work Phone: [facility] 07-27-2024 11:16-0400 Systolic blood pressure 124 mm[Hg] Adelaida Carrion [employer] Work Phone: [facility] 07-26-2024 10:48-0400 Body height 162.6 cm Juany Lowe PA Work Phone: [facility] 07-26-2024 10:48-0400 Body mass index (BMI) [Ratio] 50.98 kg/m2 Juany Lowe PA Work Phone: [facility] 07-26-2024 10:48-0400 Body weight 134.72 kg Juany Lowe PA Work Phone: [facility] 07-26-2024 10:48-0400 Diastolic blood pressure 84 mm[Hg] Juany Lowe PA Work Phone: [facility] 07-26-2024 10:48-0400 Systolic blood pressure 126 mm[Hg] Juany Lowe PA Work Phone: [facility] 05-24-2024 08:19-0500 Body height 162.6 cm Juany Lowe PA Work Phone: [facility] 05-24-2024 08:19-0500 Body mass index (BMI) [Ratio] 50.29 kg/m2 Juany Lowe PA Work Phone: [facility] 05-24-2024 08:19-0500 Body weight 132.9 kg Juany Lowe PA Work Phone: [facility] 05-24-2024 08:19-0500 Diastolic blood pressure 72 mm[Hg] Juany Lowe PA Work Phone: [facility] 05-24-2024 08:19-0500 Heart rate 62 /min Juany Lowe PA Work Phone: [facility] 05-24-2024 08:19-0500 Respiratory rate 16 /min Juany Kirbye PA Work Phone: [facility] 05-24-2024 08:19-0500 SaO2% (BldA) [Mass fraction] 100 % Juany Kirbye PA Work Phone: [facility] 05-24-2024 08:19-0500 Systolic blood pressure 110 mm[Hg] Juany Kirbye PA Work Phone: [facility] 05-12-2024 10:04-0500 Body height 162.6 cm Adelaida Aichholz [employer] Work Phone: [facility] 05-12-2024 10:04-0500 Body mass index (BMI) [Ratio] 49.16 kg/m2 Adelaida Aichholz [employer] Work Phone: [facility] 05-12-2024 10:04-0500 Body temperature 98.49 [degF] Adelaida Aichholz [employer] Work Phone: [facility] 05-12-2024 10:04-0500 Body weight 129.91 kg Adelaida Aichholz [employer] Work Phone: [facility] 05-12-2024 10:04-0500 Diastolic blood pressure 78 mm[Hg] Adelaida Aichholz [employer] Work Phone: [facility] 05-12-2024 10:04-0500 Heart rate 80 /min Adelaida Aichholz [employer] Work Phone: [facility] 05-12-2024 10:04-0500 Respiratory rate 20 /min Adelaida Aichholz [employer] Work Phone: [facility] 05-12-2024 10:04-0500 SaO2% (BldA) [Mass fraction] 98 % Adelaida Aichholz [employer] Work Phone: [facility] 05-12-2024 10:04-0500 Systolic blood pressure 118 mm[Hg] Adelaida Aichholz [employer] Work Phone: [facility] 03-16-2024 09:53-0500 Body height 162.6 cm Adelaida Yinghholz [employer] Work Phone: [facility] 03-16-2024 09:53-0500 Body mass index (BMI) [Ratio] 48.41 kg/m2 Adelaida Aichholz [employer] Work Phone: [facility] 03-16-2024 09:53-0500 Body temperature 98.01 [degF] Adelaida Yinghholz [employer] Work Phone: [facility] 03-16-2024 09:53-0500 Body weight 127.91 kg Adelaida Aichholz [employer] Work Phone: [facility] 03-16-2024 09:53-0500 Diastolic blood pressure 80 mm[Hg] Adelaida Yinghholz [employer] Work Phone: [facility] 03-16-2024 09:53-0500 Heart rate 79 /min Adelaida Yinghholz [employer] Work Phone: [facility] 03-16-2024 09:53-0500 Respiratory rate 18 /min Adelaida Aichholz [employer] Work Phone: [facility] 03-16-2024 09:53-0500 SaO2% (BldA) [Mass fraction] 98 % Adelaida Yinghholz [employer] Work Phone: [facility] 03-16-2024 09:53-0500 Systolic blood pressure 120 mm[Hg] Adelaida Yinghholz [employer] Work Phone: [facility] 03-10-2024 15:20-0500 Body height 162.6 cm Rachel REDDY Work Phone: [facility] 03-10-2024 15:20-0500 Body mass index (BMI) [Ratio] 48.41 kg/m2 Rachel REDDY Work Phone: [facility] 03-10-2024 15:20-0500 Body weight 127.91 kg Rachel REDDY Work Phone: [facility] 03-10-2024 15:20-0500 Diastolic blood pressure 68 mm[Hg] Rachel Sahni PA Work Phone: [facility] 03-10-2024 15:20-0500 Heart rate 74 /min Rachel Sahni PA Work Phone: [facility] 03-10-2024 15:20-0500 Respiratory rate 16 /min Rachel Sahni PA Work Phone: [facility] 03-10-2024 15:20-0500 SaO2% (BldA) [Mass fraction] 98 % Rachel Stephen PA Work Phone: [facility] 03-10-2024 15:20-0500 Systolic blood pressure 102 mm[Hg] Rachel Sahni PA Work Phone: [facility] 03-01-2024 12:48-0500 Body height 162.6 cm Juany Lowe PA Work Phone: [facility] 03-01-2024 12:48-0500 Body mass index (BMI) [Ratio] 48.92 kg/m2 Juany Lowe PA Work Phone: [facility] 03-01-2024 12:48-0500 Body weight 129.28 kg Juany Lowe PA Work Phone: [facility] 03-01-2024 12:48-0500 Diastolic blood pressure 88 mm[Hg] Juany Lowe PA Work Phone: [facility] 03-01-2024 12:48-0500 Systolic blood pressure 140 mm[Hg] Juany Lowe PA Work Phone: [facility] 02-16-2024 11:18-0500 Body height 162.6 cm Adelaida Carrion [employer] Work Phone: [facility] 02-16-2024 11:18-0500 Body mass index (BMI) [Ratio] 50.77 kg/m2 Adelaida Carrion [employer] Work Phone: [facility] 02-16-2024 11:18-0500 Body temperature 98.49 [degF] Adelaida Aichholz [employer] Work Phone: [facility] 02-16-2024 11:18-0500 Body weight 134.17 kg Adelaida Aichholz [employer] Work Phone: [facility] 02-16-2024 11:18-0500 Diastolic blood pressure 82 mm[Hg] Adelaida Aichholz [employer] Work Phone: [facility] 02-16-2024 11:18-0500 Heart rate 69 /min Adelaida Aichholz [employer] Work Phone: [facility] 02-16-2024 11:18-0500 Respiratory rate 20 /min Adelaida Aichholz [employer] Work Phone: [facility] 02-16-2024 11:18-0500 SaO2% (BldA) [Mass fraction] 98 % Adelaida Aichholz [employer] Work Phone: [facility] 02-16-2024 11:18-0500 Systolic blood pressure 122 mm[Hg] Adelaida Aichholz [employer] Work Phone: [facility] 01-28-2024 13:46-0400 Body height 162.6 cm Adelaida Aichholz [employer] Work Phone: [facility] 01-28-2024 13:46-0400 Body mass index (BMI) [Ratio] 48.99 kg/m2 Adelaida Aichholz [employer] Work Phone: [facility] 01-28-2024 13:46-0400 Body temperature 98.71 [degF] Adelaida Aichholz [employer] Work Phone: [facility] 01-28-2024 13:46-0400 Body weight 129.46 kg Adelaida Aichholz [employer] Work Phone: [facility] 01-28-2024 13:46-0400 Diastolic blood pressure 78 mm[Hg] Adelaida Aichholz [employer] Work Phone: [facility] 01-28-2024 13:46-0400 Heart rate 81 /min Adelaida Aichholz [employer] Work Phone: [facility] 01-28-2024 13:46-0400 Respiratory rate 18 /min Adelaida Merryholz [employer] Work Phone: [facility] 01-28-2024 13:46-0400 SaO2% (BldA) [Mass fraction] 99 % Adelaida Yinghholz [employer] Work Phone: [facility] 01-28-2024 13:46-0400 Systolic blood pressure 110 mm[Hg] Adelaida Yinghholz [employer] Work Phone: [facility] 01-04-2024 09:39-0400 Body height 162.6 cm Adelaida Yinghholz [employer] Work Phone: [facility] 01-04-2024 09:39-0400 Body mass index (BMI) [Ratio] 48.75 kg/m2 Adelaida Yinghholz [employer] Work Phone: [facility] 01-04-2024 09:39-0400 Body temperature 97.81 [degF] Adelaida Yinghholz [employer] Work Phone: [facility] 01-04-2024 09:39-0400 Body weight 128.82 kg Adelaida Merryholz [employer] Work Phone: [facility] 01-04-2024 09:39-0400 Diastolic blood pressure 78 mm[Hg] Adelaida Yinghholz [employer] Work Phone: [facility] 01-04-2024 09:39-0400 Heart rate 67 /min Adelaida Yinghholz [employer] Work Phone: [facility] 01-04-2024 09:39-0400 Respiratory rate 19 /min Adelaida Aichholz [employer] Work Phone: [facility] 01-04-2024 09:39-0400 SaO2% (BldA) [Mass fraction] 99 % Adelaida Aichholz [employer] Work Phone: [facility] 01-04-2024 09:39-0400 Systolic blood pressure 116 mm[Hg] Adelaida Sousabob [employer] Work Phone: [facility] 12-09-2023 10:14-0400 Body height 162.6 cm Juany Caballero [employer] Work Phone: [facility] 12-09-2023 10:14-0400 Body mass index (BMI) [Ratio] 48.92 kg/m2 Juany Singhmor [employer] Work Phone: [facility] 12-09-2023 10:14-0400 Body weight 129.28 kg Juany Singhmor [employer] Work Phone: [facility] 12-09-2023 10:14-0400 Diastolic blood pressure 78 mm[Hg] Juany Singhmor [employer] Work Phone: [facility] 12-09-2023 10:14-0400 SaO2% (BldA) [Mass fraction] 97 % Juany Singhmor [employer] Work Phone: [facility] 12-09-2023 10:14-0400 Systolic blood pressure 122 mm[Hg] Juany Singhmor [employer] Work Phone: [facility] 12-08-2023 15:24-0400 Body height 162.6 cm Sonam Franzgel [employer] Work Phone: [facility] 12-08-2023 15:24-0400 Body mass index (BMI) [Ratio] 48.92 kg/m2 Sonam Windnagel [employer] Work Phone: [facility] 12-08-2023 15:24-0400 Body weight 129.28 kg Sonam Windnagel [employer] Work Phone: [facility] 12-08-2023 15:24-0400 Diastolic blood pressure 77 mm[Hg] Sonam Windnagel [employer] Work Phone: [facility] 12-08-2023 15:24-0400 Heart rate 72 /min Sonam Windnagel [employer] Work Phone: [facility] 12-08-2023 15:24-0400 Systolic blood pressure 134 mm[Hg] Sonam Windnagel [employer] Work Phone: [facility] 05-18-2023 16:30-0500 Body height 162.6 cm Adelaidamyrna Hesherineholz [employer] Work Phone: [facility] 05-18-2023 16:30-0500 Body mass index (BMI) [Ratio] 47.89 kg/m2 Adelaida Aichholz [employer] Work Phone: [facility] 05-18-2023 16:30-0500 Body temperature 97.3 [degF] Adelaida Aichholz [employer] Work Phone: [facility] 05-18-2023 16:30-0500 Body weight 126.55 kg Adelaida Aichholz [employer] Work Phone: [facility] 05-18-2023 16:30-0500 Diastolic blood pressure 80 mm[Hg] Adelaida Aichholz [employer] Work Phone: [facility] 05-18-2023 16:30-0500 Heart rate 76 /min Adelaida Aichholz [employer] Work Phone: [facility] 05-18-2023 16:30-0500 Respiratory rate 19 /min Adelaida Aichholz [employer] Work Phone: [facility] 05-18-2023 16:30-0500 SaO2% (BldA) [Mass fraction] 97 % Adelaida Aichholz [employer] Work Phone: [facility] 05-18-2023 16:30-0500 Systolic blood pressure 134 mm[Hg] Adelaida Aichholz [employer] Work Phone: [facility] 03-23-2023 12:10-0500 Diastolic blood pressure 98 mm[Hg] Adelaida Aichholz Work Phone: [facility] 03-23-2023 12:10-0500 Heart rate 76 /min Adelaida Aichholz Work Phone: [facility] 03-23-2023 12:10-0500 Respiratory rate 18 /min Adelaida Aichholz Work Phone: [facility] 03-23-2023 12:10-0500 SaO2% (BldA) [Mass fraction] 99 % Adelaida Carrion Work Phone: [facility] 03-23-2023 12:10-0500 Systolic blood pressure 162 mm[Hg] Adelaida Carrion Work Phone: [facility] 03-23-2023 10:53-0500 Body height 162.56 cm Adelaida Carrion Work Phone: [facility] 03-23-2023 10:53-0500 Body weight 125.64 kg Adelaida Carrion Work Phone: [facility] 12-19-2022 14:55-0400 Body height 162.56 cm Rosemary Vernonmond Other [facility] Other 12-19-2022 14:55-0400 Body mass index (BMI) [Ratio] 47.85 kg/m2 Rosemary Marita Other [facility] Other 12-19-2022 14:55-0400 Body temperature 97.8 [degF] Rosemary Vernonmond Other [facility] Other 12-19-2022 14:55-0400 Body weight 126.46 kg Rosemary Marita Other [facility] Other 12-19-2022 14:55-0400 Respiratory rate 20 /min Rosemary Marita Other [facility] Other 12-19-2022 14:55-0400 SaO2% (BldA) [Mass fraction] 95 % Rosemary Marita Other [facility] Other 11-20-2022 13:12-0400 Body temperature 97.7 [degF] Adelaida Aichholz Work Phone: [facility] 11-20-2022 13:12-0400 SaO2% (BldA) [Mass fraction] 96 % Adelaida Aichholz Work Phone: [facility] 11-20-2022 07:44-0400 Diastolic blood pressure 90 mm[Hg] Adelaida Aichholz Work Phone: [facility] 11-20-2022 07:44-0400 Heart rate 103 /min Adelaida Aichholz Work Phone: [facility] 11-20-2022 07:44-0400 Systolic blood pressure 152 mm[Hg] Adelaida Aichholz Work Phone: [facility] 11-19-2022 20:00-0400 Respiratory rate 18 /min Adelaida Aichholz Work Phone: [facility] 11-18-2022 15:18-0400 Body height 162.56 cm Adelaida Aichholz Work Phone: [facility] 11-17-2022 09:00-0400 Body weight 122.92 kg Adelaida Aichholz Work Phone: [facility] Encounters Encounter Date Encounter Type Care Provider Facility Start: 11-18-2024 End: 11-18-2024 Bamboo flowsheet Harrison Shea Pocos DO Work Phone: [facility] Start: 11-18-2024 End: 11-18-2024 Bamboo flowsheet Harrison Shea Pocos DO Work Phone: [facility] Start: 11-18-2024 End: 11-18-2024 Patient encounter procedure Harrison Shea Pocos DO Work Phone: [facility] Comment on above: Acute medial meniscu s tear of right knee, initial encounter (Primary Dx); Chronic pain of right knee; Morbid obesity ([facility]); Primary osteoarthritis of right knee; Preoperative testing Start: 11-18-2024 End: 11-18-2024 Patient encounter status Harrison Shea Pocos DO Work Phone: [facility] Start: 11-18-2024 End: 11-18-2024 ambulatory HARRISON Shea POCOS Not Available Start: 11-17-2024 End: 11-17-2024 ambulatory HARRISON Shea POCOS Not Available Start: 11-14-2024 End: 11-14-2024 Bamboo flowsheet Adelaida Carrion [employer] Work Phone: [facility] Start: 11-14-2024 End: 11-17-2024 Bamboo flowsheet Adelaida Carrion [employer] Work Phone: [facility] Start: 11-14-2024 End: 11-17-2024 Clinisync Result Encounter Adelaida Carrion [employer] Work Phone: [facility] External Department Unsolicited Start: 11-14-2024 End: 11-14-2024 Office outpatient visit 25 minutes Adelaida Carrion [employer] Work Phone: [facility] Comment on above: Well woman exam with routine gynecological exam (Primary Dx); Morbid (severe) obesity due to excess calories ([facility]); Primary hypertension ; Anemia, unspecified type; Bilateral lower extremity edema; Osteoporosis, unspecified osteoporosis type, unspecified pathological fracture presence ; Chronic kidney disease, stage 3a ([facility] Pre-diabetes Start: 11-14-2024 End: 11-14-2024 Patient encounter procedure Adelaida Carrion [employer] Work Phone: [facility] Start: 11-14-2024 End: 11-14-2024 ambulatory ADELAIDA CARRION Not Available Start: 11-08-2024 ambulatory Eduardo Monk Facility:[facility] Start: 10-27-2024 End: 10-27-2024 Patient encounter procedure Harrison Shea Pocos DO Work Phone: [facility] Comment on above: Right knee pain, uns pecified chronicity (Primary Dx); Primary osteoarthritis of right knee; Morbid obesity ([facility]-HCC) Start: 10-27-2024 End: 10-27-2024 ambulatory MICHEL POCOS Not Available Start: 10-27-2024 End: 10-27-2024 ambulatory MICHEL POCOS Not Available Start: 10-13-2024 End: 10-13-2024 Bamboo flowsheet Adelaida Carrion [employer] Work Phone: [facility] Start: 10-13-2024 End: 10-13-2024 Bamboo flowsheet Adelaida Carrion [employer] Work Phone: [facility] Start: 10-13-2024 End: 10-13-2024 Office outpatient visit 25 minutes Adelaida Carrion [employer] Work Phone: [facility] Comment on [...] 10-10-2024 End: 10-10-2024 ambulatory Syeda Mancuso MD Facility:[facility] Start: 10-08-2024 End: 10-09-2024 Emergency department patient visit ADELAIDA CARRION [facility] Start: 09-29-2024 End: 09-29-2024 [...] 09-19-2024 End: 09-19-2024 ambulatory [facility] Start: 08-16-2024 End: 08-16-2024 Bamboo flowsheet Adelaida Carrion [employer] Work Phone: [facility] Start: 08-16-2024 End: 08-16-2024 Bamboo flowsheet Adelaida Carrion [employer] Work Phone: [facility] Start: 08-16-2024 End: 08-16-2024 Office outpatient visit 15 minutes Adelaida Carrion [employer] Work Phone: [facility] Comment on above: Primary hypertension (CMS/HCC) (Primary Dx); Bronchitis; Bilateral lower extremity edema; Morbid (severe) obesity due to excess calories (CMS/HCC); Pre-diabetes; Allergic rhinitis, unspecified seasonality, unspecified trigger; Encounter for screening mammogram for malignant neoplasm of breast; Former cigarette smoker Start: 08-16-2024 End: 08-16-2024 ambulatory ADELAIDA CARRION Not Available Start: 08-08-2024 End: 08-08-2024 ambulatory Seyda Mancuso MD Facility:[facility] Start: 07-27-2024 End: 07-27-2024 Bamboo flowsheet Adelaida Carrion [employer] Work Phone: [facility] Start: 07-27-2024 End: 07-27-2024 Bamboo flowsheet Adelaida Carrion [employer] Work Phone: [facility] Start: 07-27-2024 End: 07-27-2024 Office outpatient visit 15 minutes Adelaida Carrion [employer] Work Phone: [facility] Comment on [...] DIANA Start: 07-26-2024 End: 07-26-2024 Bamboo flowsheet Ujany Lowe PA Work Phone: [facility] Start: [...] Start: 06-14-2024 End: 06-14-2024 Refill Adelaida Aichholz [employer] Work Phone: [facility] Comment on above: [...] 05-23-2024 End: 05-23-2024 ambulatory Syeda Mancuso MD Facility:[facility] Start: 05-12-2024 End: 05-12-2024 Bamboo flowsheet Adelaida Carrion [employer] Work Phone: [facility] Start: 05-12-2024 End: 05-12-2024 Bamboo flowsheet Adelaida Carrion [employer] [facility]: [facility] Start: 05-12-2024 End: 05-12-2024 Office outpatient visit 25 minutes Adelaida Carrion [employer] Work Phone: [facility] Comment on above: Primary hypertension [...] 05-09-2024 End: 05-09-2024 ambulatory [facility] Start: 04-12-2024 End: 04-12-2024 Refill Jauny REDDY Work Phone: [facility] [address] [facility] Comment on above: Transient alteration of awareness (Primary Dx); Restless leg Start: 04-07-2024 End: 04-07-2024 Patient encounter procedure David Foster PhD Work Phone: [facility] Comment on above: Metabolic encephalop [...] 03-16-2024 End: 03-16-2024 Bamboo flowsheet Adelaida Carrion [employer] Work Phone: [facility] Start: 03-16-2024 End: 03-16-2024 Bamboo flowsheet Adelaida Carrion [employer] Work Phone: [facility] Start: 03-16-2024 End: 03-16-2024 Office outpatient visit 25 minutes Adelaida Carrion [employer] Work Phone: [facility] Comment on above: Metabolic encephalop athy (Primary Dx); OSMANY (obstructive sleep apnea); Morbid obesity (CMS/HCC); Bilateral lower extremity edema; Tobacco dependence; Bipolar disorder with severe depression (CMS/HCC); At risk for polypharmacy; Anxiety; Primary hypertension ([facility]/HCC); Right bundle branch block (RBBB) determined by electrocardiography Start: 03-16-2024 End: 03-16-2024 ambulatory ADELAIDA SHEYLA Not Available Start: 03-15-2024 End: 03-16-2024 Telephone encounter David Norman MA [facility] Start: 03-14-2024 End: 03-14-2024 Bamboo flowsheet David Foster PhD Work Phone: [facility] Start: 03-14-2024 End: 03-14-2024 Bamboo flowsheet David Foster PhD Work Phone: [facility] Start: 03-14-2024 End: 03-14-2024 ambulatory [...] 03-07-2024 Evaluation and management of inpatient Adelaida Carroin Facility:[facility] Start: 03-02-2024 End: 03-04-2024 Clinisync Result Encounter Generic External Data Provider [facility] External Department Unsolicited Start: 03-02-2024 End: 03-04-2024 Clinisync Result Encounter Generic External Data Provider [facility] External Department Unsolicited Start: 03-02-2024 End: 03-02-2024 Refill Adelaida Carrion [employer] Work Phone: [facility] Comment on above: Yeast infection of t [...] Start: 02-28-2024 End: 02-29-2024 Refill Adelaida Sheyla [employer] Work Phone: [facility] Comment on above: Allergic rhinitis, u nspecified Start: 02-24-2024 End: 02-24-2024 Refill Adelaida Sheyla [employer] Work Phone: [facility] Comment on above: Essential (primary) hypertension (CMS/HCC); Allergic rhinitis, unspecified Start: 02-16-2024 End: 02-16-2024 Bamboo flowsheet Adelaida Carrion [employer] Work Phone: [facility] Start: 02-16-2024 End: 02-23-2024 Clinisync Result Encounter Adelaida Carrino [employer] Work Phone: [facility] External Department Unsolicited Start: 02-16-2024 End: 02-23-2024 Clinisync Result Encounter Adelaida Sheyla [employer] Work Phone: [facility] External Department Unsolicited Start: 02-16-2024 End: 02-16-2024 Patient encounter procedure Adelaida Sheyla [employer] Work Phone: [facility] Start: 02-16-2024 End: 02-16-2024 Periodic preventive med est patient 40-64yrs Adelaida Carrion [employer] Work Phone: [facility] Comment on above: Well woman exam with routine gynecological exam (Primary Dx); Morbid obesity (CMS/HCC) Start: 02-16-2024 End: 02-16-2024 ambulatory ADELAIDA SHEYLA Not Available Start: 02-04-2024 End: 02-04-2024 Refill Sonam Brown [employer] Work Phone: [facility] [address] [facility] Comment on above: Restless leg Start: 01-28-2024 End: 01-28-2024 Bamboo flowsheet Adelaida Carrion [employer] Work Phone: [facility] Start: 01-28-2024 End: 01-28-2024 Bamboo flowsheet Adelaida Sheyla [employer] Work Phone: [facility] Start: 01-28-2024 End: 01-28-2024 Office outpatient visit 15 minutes Adelaida Sheyla [employer] Work Phone: [facility] Comment on above: Acute cystitis witho ut hematuria (Primary Dx); Tobacco dependence; Needs flu shot; Morbid obesity (CMS/HCC) Start: 01-28-2024 End: 01-28-2024 ambulatory ADELAIDA CARRION Not Available Start: 01-25-2024 End: 01-25-2024 ambulatory Syeda Mancuso MD Facility:[facility] Start: 01-21-2024 End: 01-25-2024 Clinisync Result Encounter Generic External Data Provider [facility] External Department Unsolicited Start: 01-21-2024 End: 01-25-2024 Clinisync Result Encounter Generic External Data Provider [facility] External Department Unsolicited Start: 01-05-2024 End: 01-05-2024 Clinisync Result Encounter Adelaida Carrion [employer] Work Phone: [facility] External Department Unsolicited Start: 01-05-2024 End: 01-05-2024 Clinisync Result Encounter Adelaida Sheyla [employer] Work Phone: [facility] External Department Unsolicited Start: 01-04-2024 End: 01-04-2024 Bamboo flowsheet Adelaida Carrion [employer] Work Phone: [facility] Start: 01-04-2024 End: 01-04-2024 Bamboo flowsheet Adelaida Sheyla [employer] Work Phone: [facility] Start: 01-04-2024 End: 01-04-2024 Office outpatient visit 25 minutes Adelaida Carrion [employer] Work Phone: [facility] Comment on above: Bilateral lower extr emity edema (Primary Dx); Essential (primary) hypertension (CMS/HCC); Allergic rhinitis, unspecified; OSMANY (obstructive sleep apnea); Primary hypertension (CMS/HCC); Morbid obesity (CMS/HCC) Start: 01-04-2024 End: 01-04-2024 ambulatory ADELAIDA AICHHOLZ Not Available Start: 12-30-2023 End: 12-30-2023 Refill Adelaida Aichholz [employer] Work Phone: [facility] Comment on above: Lower extremity elis a Start: 12-09-2023 End: 12-09-2023 Office outpatient visit 25 minutes Juany Caballero [employer] Work Phone: [facility] Comment on above: OSMANY (obstructive sle ep apnea) (Primary Dx); Restless leg Start: 12-09-2023 End: 12-09-2023 ambulatory JUANY CABALLERO Not Available Start: 12-08-2023 End: 12-08-2023 ambulatory SONAM Keiry BROWN Not Available Start: 12-08-2023 End: 12-08-2023 Office outpatient visit 25 minutes Sonam Keiry Brown [employer] Work Phone: [facility] Comment on above: 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CMS /HCC) (Primary Dx); Restless leg; Metabolic encephalopathy Start: 12-08-2023 End: 12-08-2023 Bamboo flowsheet Sonam C [place] [employer] Work Phone: [facility] [address] Start: 12-08-2023 End: 12-08-2023 Bamboo flowsheet Sonam C [place] [employer] Work Phone: [facility] Start: 11-27-2023 End: 11-27-2023 Refill Adelaida Aichholz [employer] Work Phone: [facility] Comment on above: Yeast infection of t he skin (Primary Dx) Start: 05-21-2023 Refill Adelaida Aichholz [employer] Work Phone: [facility] Comment on above: Acute cystitis with hematuria (Primary Dx) Start: 05-18-2023 End: 05-18-2023 Office outpatient visit 25 minutes Adelaida Aicsherineholz [employer] Work Phone: [facility] Comment on above: Encounter for annual wellness visit (AWV) in Medicare patient (Primary Dx); OSMANY (obstructive sleep apnea); Chronic pain disorder; Gastroesophageal reflux disease, unspecified whether esophagitis present; Overactive bladder; Lower extremity edema; Pre-diabetes; Morbid obesity ([facility]); Yeast infection of the skin; Tobacco dependence; Mood disorder ([facility]); Primary hypertension ([facility]); Left hip pain; Open wound of anterior abdominal wall, initial encounter Start: 05-18-2023 Bamboo flowsheet Adelaida Carrion NP Work Phone: [facility] Start: 05-18-2023 Bamboo flowsheet Adelaida Carrion NP Work Phone: [facility] Start: 05-18-2023 End: 05-18-2023 Patient encounter procedure Adelaida Carrion NP Work Phone: [facility] Start: 03-23-2023 End: 03-23-2023 Admission to same day surgery center Adelaida Carrion Work Phone: [facility] Work Phone: Start: 03-23-2023 End: 03-23-2023 ambulatory Adelaida Carrion Work Phone: [facility] Work Phone: Start: 02-12-2023 End: 02-12-2023 ambulatory Jace Graham Other [employer] Other Start: 02-12-2023 Telephone encounter Jace Haney [employer] Start: 12-19-2022 End: 12-19-2022 ambulatory Rosemary Kirkland Other [employer] Other Start: 12-19-2022 Office outpatient ne w 10 minutes Rosemary Kirkland [facility] José Miguel Start: 11-17-2022 End: 11-20-2022 Evaluation and management of inpatient Adelaida Sheyla Work Phone: [facility] Work Phone: Start: 09-04-2022 ambulatory ARIAN Banegas Facili ty:H1 Start: 08-26-2022 ambulatory NARENDRANATH LAKSHMIPATHY . Facility:[facility]1 Start: 08-08-2022 End: 08-09-2022 ambulatory [employer] ADELAIDA SHEYLA Facility:[facility]1 Start: 07-25-2022 End: 07-26-2022 ambulatory [employer] ADELAIDA SHEYLA Facility:[facility] Start: 07-15-2022 End: 07-15-2022 ambulatory NARENDRANATH LAKSHMIPATHY . Facility:[facility] Start: 07-11-2022 ambulatory NARENDRANATH LAKSHMIPATHY . Facility:[facility] Start: 06-26-2022 End: 06-27-[address] FINA NIXON . Facility:[facility] Start: 06-11-2022 ambulatory [employer] ADELAIDA SHEYLA Facil ity:H1 Start: 05-21-2022 End: 06-11-2022 ambulatory [employer] ADELAIDA SHEYLA Facility:[facility]1 Start: 05-08-2022 End: 05-09-2022 ambulatory [employer] ADELAIDA SHEYLA Facility:[facility]1 Start: 04-28-2022 End: 04-28-2022 ambulatory [employer] ADELAIDA SHEYLA Facility:[facility] Start: 04-03-2022 End: 04-04-[address] FINA NIXON . Facility:[facility] Start: 03-19-2022 End: 03-20-2022 ambulatory [employer] ADELAIDA SHEYLA Facility:[facility] Start: 02-20-2022 End: 02-20-2022 ambulatory GILMER NEVES Facility:[facility] Start: 01-10-2022 End: 02-12-2022 ambulatory BRIDGETTE MACEDO Facility:[facility] Start: 01-02-2022 End: 01-03-[address] FINA NIXON . Facility:[facility] Start: 01-01-2022 End: 01-02-2022 ambulatory BRIDGETTE MACEDO Facility:[facility]1 Start: 12-16-2021 End: 12-16-2021 ambulatory [employer] ADELAIDA SHEYLA Facility:[facility]1 Start: 11-21-2021 End: 11-22-[address] DOCTOR BERGERON Facility:[facility]1 Start: 10-03-2021 End: 10-04-[address] FINA NIXON . Facility:[facility] Start: 09-19-[address] FINA NIXON . Faci lity:H1 Start: 09-12-2021 End: 09-12-2021 ambulatory [employer] ADELAIDA CARRION Facility:[facility]1 Start: 08-20-2021 End: 08-20-[address] FINA NIXON . Facility:[facility] Start: 07-02-2018 End: 07-03-2018 Patient encounter procedure SUKI ESCALANTE Facility:[facility] Procedures Date Procedure Procedure Detail Performing Clinician Start: 11-14-2024 IGP,APTIMA HPV,AGE GDLN Adelaida Carrion [employer] Work Phone: Start: 10-27-2024 Radiologic examinati on knee 3 views Michel Pocos DO Work Phone: Start: 09-29-2024 Radex hips bilateral with pelvis 2 views Generic External Data Provider Start: 09-26-2024 CT LUNG SCREENING LOW DOSE Adelaida Carrion [employer] Work Phone: Start: 09-26-2024 MM TOMOSYNTHESIS SCR EENING BI Adelaida Sheyla [employer] Work Phone: Start: 09-26-2024 XR SHOULDER RT MIN 2V G eneric External Data Provider Start: 09-26-2024 Mammography Adelaida Jayden ramos [employer] Work Phone: Start: 08-16-2024 Hemoglobin glycosylated a1c Adelaida Sheyla [employer] Work Phone: Start: 03-02-2024 BLOOD CULTURE 1 Generic External Data Provider Start: 02-16-2024 IGP,APTIMA HPV,AGE GDLN Adelaida Carrion [employer] Work Phone: Start: 01-28-2024 Urnls dip stick/tabl et rgnt non-auto w/o micrscp Adelaida Carrion [employer] Work Phone: Start: 01-21-2024 MHPT CULT,URINE Generic External Data Provider Start: 01-05-2024 ALL BASIC METABOLIC PANEL Adelaida Carrion [employer] Work Phone: Start: 09-18-2023 Mammography Adelaida Jayden ramos [employer] Work Phone: Start: 03-23-2023 Screening colonoscopy L oneal Sheyla Work Phone: Start: 03-23-2023 Colonoscopy Adelaida Merrysherine rachel [employer] Work Phone: Start: 09-15-2022 Mammography Adelaida Carpenter rachel [employer] Work Phone: Start: 08-28-2022 Microscopic observat ion [Identifier] in Cervix by Cyto stain Adelaidamyrna Carrion [employer] Work Phone: Start: 07-02-2018 ANESTH KNEE AREA SURGERY CHAPARRITA HENDRICKS Start: 07-02-2018 REMOVAL OF SUPPORT IMPLANT SUKI EBRAHEIM Start: 07-02-2018 TREAT KNEECAP FRACTURE SUKI EBRAHEIM Plan of Treatment Date Care Activity Detail Author Start: 03-23-2033 Screening for malign ant neoplasm of colon [facility] Start: 09-26-2025 Screening for malign ant neoplasm of breast Mammogram [facility] Start: 09-26-2025 Screening for malign ant neoplasm of lung Lung Cancer Screening Shared Decision Making [facility] Comment on above: Postponed from 12/05 (Other Medical Reasons) Start: 08-28-2025 Screening for malign ant neoplasm of cervix [facility] Start: 02-15-2025 Medicare Annual Well ness (AWV) Medicare Annual Wellness (AWV) [facility] Start: 02-13-2025 End: 02-13-2025 Patient encounter procedure 02/13/2025 9:40 AM EST Office Visit [facility] [address] [place] [address] Adelaida Carrion NP [address] [place] [phone] [facility] Start: 2024 Influenza vaccination Influenza Vacc ine (#1) [facility] Start: 11-18-2024 End: 11-18-2025 XR Chest 2 Views XR chest 2 views Imaging Routine Preoperative testing Expected: 11/18/2024 (Approximate), Expires: 11/18/2025 [facility] Work Phone: Comment on above: Expected: 11/18/2024 (Approximate), Expires: 11/18/2025 Start: 11-18-2024 End: 11-18-2024 [facility] Comment on above: Arrived Start: 11-17-2024 End: 11-17-2024 Professional / ancillary services management 11/17/2024 8:45 AM EDT Ancillary [facility] [address] [place] [id number] [facility] Start: 11-14-2024 End: 11-14-2025 25-hydroxyvitamin D3 [Mass/volume] in Serum or Plasma Vitamin D 25 hydroxy Lab Routine Chronic kidney disease, stage 3a ([facility]-HCC) Expected: 11/14/2024 (Approximate), Expires: 11/14/2025 [facility] Comment on above: Expected: 11/14/2024 (Approximate), Expires: 11/14/2025 Start: 11-14-2024 End: 11-14-2025 CBC W Auto Differential panel - Blood CBC and differential Lab Routine Anemia, unspecified type Expected: 11/14/2024 (Approximate), Expires: 11/14/2025 [facility] Comment on above: Expected: 11/14/2024 (Approximate), Expires: 11/14/2025 Start: 11-14-2024 End: 11-14-2025 Comprehensive metabolic 2000 panel - Serum or Plasma Comprehensive metabolic panel Lab Routine Primary hypertension Bilateral lower extremity edema Osteoporosis, unspecified osteoporosis type, unspecified pathological fracture presence Chronic kidney disease, stage 3a (CMS-HCC) Pre-diabetes Expected: 11/14/2024 (Approximate), Expires: 11/14/2025 [facility] Comment on above: Expected: 11/14/2024 (Approximate), Expires: 11/14/2025 Start: 11-14-2024 End: 11-14-2025 Lipid 1996 panel - Serum or Plasma Lipid panel Lab Routine Pre-diabetes Expected: 11/14/2024 (Approximate), Expires: 11/14/2025 [facility] Comment on above: Expected: 11/14/2024 (Approximate), Expires: 11/14/2025 Start: 11-14-2024 End: 11-14-2025 Microalbumin/Creatinine panel in random Urine Microalbumin / creatinine, urine ratio Lab Routine Primary hypertension Pre-diabetes Expected: 11/14/2024 (Approximate), Expires: 11/14/2025 [facility] Comment on above: Expected: 11/14/2024 (Approximate), Expires: 11/14/2025 Start: 11-14-2024 End: 11-14-2025 THIN PREP TIS PAP AND HR HPV DNA THIN PREP TIS PAP AND HR HPV DNA Pathology and Cytology Routine Well woman exam with routine gynecological exam Expected: 11/14/2024 (Approximate), Expires: 11/14/2025 [facility] Work Phone: Comment on above: Expected: 11/14/2024 (Approximate), Expires: 11/14/2025 Start: 11-14-2024 End: 11-14-2025 Urinalysis complete panel - Urine Urinalysis with reflex microscopic (clean catch) Lab Routine Primary hypertension Pre-diabetes Expected: 11/14/2024 (Approximate), Expires: 11/14/2025 [facility] Comment on above: Expected: 11/14/2024 (Approximate), Expires: 11/14/2025 Start: 11-14-2024 End: 11-14-2024 Patient encounter procedure [facility] Comment on above: Morbid (severe) obes ity due to excess calories ([facility]-H[facility]) (Primary Dx); Well woman exam with routine gynecological exam; Primary hypertension ; Anemia, unspecified type; Bilateral lower extremity edema; Osteoporosis, unspecified osteoporosis type, unspecified pathological fracture presence ; Chronic kidney disease, stage 3a ([facility]-HCC); Pre-diabetes Start: 10-13-2024 End: 10-13-2025 DXA Skeletal system Views for bone density DEXA bone density Imaging Routine Osteoporosis, unspecified osteoporosis type, unspecified pathological fracture presence Expected: 10/13/2024 (Approximate), Expires: 10/13/2025 [facility] Work Phone: Comment on above: Expected: 10/13/2024 (Approximate), Expires: 10/13/2025 Start: 10-13-2024 End: 10-13-2024 Patient encounter procedure 10/13/2024 9:00 AM EDT Office Visit [facility] [address] [place] [phone] Adelaida Carrion NP [address] [place] [address] Arrived [facility] Comment on above: Arrived Start: 09-22-2024 End: 09-22-2024 Patient encounter procedure 09/22/2024 11:00 AM EDT Office Visit [facility] [address] [place] [phone] Rachel Sahni PA [address] [place] [address] [facility] Start: 09-17-2024 Screening for malign ant neoplasm of breast Mammogram [facility] Start: 08-16-2024 End: 08-16-2025 CT Chest for screening WO contrast CT lung screening low dose Imaging Routine Former cigarette smoker Expected: 08/16/2024 (Approximate), Expires: 08/16/2025 [facility] Comment on above: Expected: 08/16/2024 (Approximate), Expires: 08/16/2025 Start: 08-16-2024 End: 10-16-2025 MG Breast - bilateral Screening Bilateral screening mammogram Imaging Routine Encounter for screening mammogram for malignant neoplasm of breast Expected: 08/16/2024 (Approximate), Expires: 10/16/2025 [facility] Work Phone: Comment on above: Expected: 08/16/2024 (Approximate), Expires: 10/16/2025 Start: 08-16-2024 End: 08-16-2024 [facility] on above: Bronchitis (Primary Dx); Primary hypertension (CMS/HCC); Bilateral lower extremity edema; Morbid (severe) obesity due to excess calories (CMS/HCC); Pre-diabetes Start: 08-11-2024 End: 08-11-2024 Patient encounter procedure 08/11/2024 10:30 AM EDT Office Visit [facility] [address] [place] [phone] Adelaida Carrion NP [address] [place] [phone] [facility] Start: 07-27-2024 End: 07-27-2024 Patient encounter procedure 07/27/2024 11:30 AM EDT [facility] [address] [place] [phone] Adelaida Carrion NP [address] [place] [phone] Primary hypertension (CMS/HCC) (Primary Dx); Morbid (severe) obesity due to excess calories (CMS/HCC) [facility] Comment on above: Primary hypertension (CMS/HCC) (Primary Dx); Morbid (severe) obesity due to excess calories (CMS/HCC) Start: 07-26-2024 End: 07-26-2024 Patient encounter procedure [facility] Comment on above: Arrived Start: 06-22-2024 End: 06-22-2024 Patient encounter procedure 06/22/2024 11:20 AM EDT Office Visit [facility] [address] [place] [address] Juany Leggett PA [address] [place] [address] [facility] [address] [facility] Start: 06-15-2024 End: 06-15-2024 Patient encounter procedure 06/15/2024 9:20 AM EDT Office Visit [facility] [address] [place] [address] Adelaida Carrion, BRIANA [address] [place] [address] GEET[facility] MANDUJANO Start: 05-24-2024 End: 05-24-2024 Patient encounter procedure [facility] Comment on above: Arrived Start: 05-18-2024 Medicare Annual Well ness (AWV) Medicare Annual Wellness (AWV) [facility] Start: 05-12-2024 End: 05-12-2024 Patient encounter procedure [facility] Comment on above: Primary hypertension (CMS/HCC) (Primary Dx); Chronic kidney disease, stage 3a (HCC) (CMS/HCC); Morbid (severe) obesity due to excess calories (CMS/HCC); Body mass index (BMI) 45.0-49.9, adult (CMS/HCC); OSMANY (obstructive sleep apnea); Hemiparesis, right (CMS/HCC); Gastroesophageal reflux disease, unspecified whether esophagitis present; Metabolic encephalopathy Start: 04-07-2024 End: 04-07-2024 Patient encounter procedure 04/07/2024 12:30 PM EST Office Visit [facility] [address] [phone] [facility] Start: 04-04-2024 End: 04-04-2024 Patient encounter procedure 04/04/2024 1:20 PM EST Office Visit [facility] [address] [place] [address] Adelaida Carrion, BRIANA [address] [place] [address] [facility] Start: 03-22-2024 End: 03-22-2024 Clinical Support 03/22/2024 10:00 AM EST Clinical Support [facility] [place] [facility] [address] [address] [place] [phone] [facility] Start: 03-16-2024 End: 03-16-2024 [facility] Comment on above: Metabolic encephalop athy (Primary Dx); OSMANY (obstructive sleep apnea); Morbid obesity (CMS/HCC); Bilateral lower extremity edema; Tobacco dependence; Bipolar disorder with severe depression (CMS/HCC); At risk for polypharmacy; Anxiety Start: 03-14-2024 End: 03-14-2024 Patient encounter procedure 03/14/2024 10:00 AM EST Office Visit [facility] [address] [address] [place] [phone] David Foster, PhD [address] [place], [place] [phone] [facility] Start: 03-11-2024 End: 03-11-2025 EEG 2 Hour Routine EEG 2 Hour Routine Neurology Routine Altered mental status, unspecified altered mental status type Expected: 03/11/2024 (Approximate), Expires: 03/11/2025 [facility] Work Phone: Comment on above: Expected: 03/11/2024 (Approximate), Expires: 03/11/2025 Start: 03-10-2024 End: 03-10-2024 Patient encounter procedure 03/10/2024 3:40 PM EST Office Visit [facility] [address] [place] [phone] Rachel Sahni PA [address] [place], [place] [id number] [facility] Start: 03-01-2024 End: 03-01-2024 Patient encounter procedure 03/01/2024 12:00 PM EST Office Visit [facility] [address] [place] [address] Juany Leggett PA [address] [place] [address] [facility] Start: 02-29-2024 End: 02-29-2024 Patient encounter procedure 02/29/2024 2:40 PM EST Office Visit [facility] [place] [facility] [address] [place] [address] Sonam Brown, [employer] [address] [place] [address] [facility] [place] [facility] Start: 02-16-2024 End: [...] procedure 02/16/2024 11:30 AM EST [facility] [address] [place] [address] Adelaida Carrion NP [address] [place] [address] [facility] Start: 02-04-2024 Influenza vaccination Influenza Vacc ine (#1) [facility] Comment on above: Postponed from 12/05 (Patient Does Not Have Time) Start: 01-28-2024 End: 01-27-2025 URINARY TRACT INFECTION (HTRX) URINARY TRACT INFECTION (HTRX) Lab Routine Acute cystitis without hematuria Expected: 01/28/2024 (Approximate), Expires: 01/27/2025 [facility] Work Phone: Comment on above: Expected: 01/28/2024 (Approximate), Expires: 01/27/2025 Start: 01-28-2024 End: 01-28-2024 Patient encounter procedure [facility] Comment on above: Tobacco dependence [...] 12/09/2023 10:30 AM EDT Office Visit [facility] [address] [place] [address] Juany Caballero NP [address] [place], [place] [facility] Start: 12-08-2023 End: 12-08-2023 Patient encounter procedure 12/08/2023 3:20 PM EDT Office Visit [facility] [address] [place] [phone] Sonam Brown NP [address] [place] [address] [facility] Start: 09-16-2023 Screening for malign ant neoplasm of breast Mammogram [facility] Start: 08-17-2023 End: 08-17-2023 Patient encounter procedure 08/17/2023 9:20 AM EDT Office Visit [facility] [address] [place] [phone] Adelaida Carrion NP [address] [place] [phone] [facility] Start: 05-22-2023 End: 05-22-2023 Patient encounter procedure 05/22/2023 8:45 AM EST Office Visit [facility] [address] [place] [address] Travon Hines, PA [address] [place] [address] [facility] Start: 05-18-2023 End: 05-18-2023 Patient encounter procedure 05/18/2023 4:30 PM EST Office Visit [facility] [address] [place] [phone] Adelaida Carrion, [employer] [address] [place] [phone] Arrived [facility] Comment on above: Arrived Start: 05-18-2023 End: 05-18-2024 XR Hip - left 3 Views XR hip left 2 or 3 views Imaging Routine Left hip pain Expected: 05/18/2023 (Approximate), Expires: 05/18/2024 [facility] Work Phone: Comment on above: Expected: 05/18/2023 (Approximate), Expires: 05/18/2024 Start: 03-23-2023 [facility] Start: 11-20-2022 [facility] Start: 11-18-2022 Referral to clinical game technician [facility] Start: 11-17-2022 Hospital admission [facility] Start: 11-17-2022 [facility] Start: 12-06-1991 Screening for malign ant neoplasm of cervix HPV/Cotest [facility] Start: 1960 Medicare Annual Well ness (AWV) Medicare Annual Wellness (AWV) [facility] Start: 1960 Screening for malign ant neoplasm of colon [facility] Start: 1960 Screening for malign ant neoplasm of lung Lung Cancer Screening Shared Decision Making [facility] BLOOD CULTURE 1 BLOOD CULTURE 1 Lab Routine 03/02/2024 3:20 AM EST [facility] Patient Education [facility] Work Phone: Patient referral [facility] Work Phone: XR Knee - right 3 Views XR knee 3 views right Imaging Routine Right knee pain, unspecified chronicity 10/27/2024 8:18 AM EDT [facility] Work Phone: [facility] Immunizations Immunization Date Immunization Notes Care Provider Parker stevens 01-28-2024 Influenza, injectabl e, Madin Nevaeh Canine Kidney, preservative free, quadrivalent Adelaida Aichholz [employer] Work Phone: [facility] 01-28-2024 influenza virus vaccine, unspecified formulation Adelaida Aichholz [employer] Work Phone: [facility] 08-17-2023 zoster vaccine recombinant Adelaida Aichholz [employer] Work Phone: [facility] 02-13-2023 influenza, injectabl e, quadrivalent, preservative free Adelaida Aichholz [employer] Work Phone: [facility] 02-13-2023 SARS-COV-2 (COVID-19 ) vaccine, mRNA, spike protein, LNP, PF, 50 mcg/0.5 mL Adelaida Aichholz [employer] Work Phone: [facility] 02-13-2023 influenza virus vaccine, unspecified formulation Adelaida Aichholz [employer] Work Phone: [facility] 02-19-2022 diphtheria, tetanus toxoids and pertussis vaccine Adelaida Aichholz [employer] Work Phone: [facility] 03-02-2021 Moderna SARS-CoV-2 Vaccination Adelaida Aichholz [employer] Work Phone: [facility] 08-24-2020 Moderna SARS-CoV-2 Vaccination Adelaida Aichholz [employer] Work Phone: [facility] 07-27-2020 Moderna SARS-CoV-2 Vaccination Adelaida Aichholz [employer] Work Phone: [facility] 05-28-2018 influenza, injectabl e, quadrivalent, preservative free Adelaida Aichholz Work Phone: [facility] 09-01-2018 pneumococcal conjuga te vaccine, 13 valent Adelaida Carrion NP Work Phone: [facility] Payers Date Payer Category Payer Medicare [id number] 2022 Self-pay [id number] 2022 Medicare [id number] 2022 Medicare (Managed Care) [facility] MEDICARE [id number] 2008 Unknown [id number] 1961 Unknown [id number] 2.16.840.1.586343.3.579.2 .647 1961 Unknown [id number] 2.16.840.1.680016.3.579.2 .593 1961 Unknown [id number] 2.16.840.1.709134.3.579.2 .593 1961 Unknown [id number] 2.16.840.1.034805.3.579.2 .593 1961 Unknown [id number] 2.16.840.1.918303.3.579.2 .593 1961 Unknown [id number] 2.16.840.1.859092.3.579.2 .593 1961 Unknown [id number] 2.16.840.1.898164.3.579.2 .593 1961 Unknown [id number] 2.16.840.1.404363.3.579.2 .593 1961 Unknown [id number] 2.16.840.1.676992.3.579.2 .593 1961 Unknown [id number] 2.16.840.1.621308.3.579.2 .593 1961 Unknown [id number] 2.16.840.1.616267.3.579.2 .593 1961 Unknown [id number] 2.16.840.1.233522.3.579.2 .593 1961 Unknown [id number] 2.16.840.1.506641.3.579.2 .593 1961 Unknown [id number] 2.16.840.1.618634.3.579.2 .593 1961 Unknown [id number] 2.16.840.1.141846.3.579.2 .593 1961 Unknown [id number] 2.16.840.1.804099.3.579.2 .593 1961 Unknown [id number] 2.16.840.1.916512.3.579.2 .593 1961 Unknown [id number] 2.16.840.1.615401.3.579.2 .593 1961 Unknown [id number] 2.16.840.1.437218.3.579.2 .593 1961 Unknown [id number] 2.16.840.1.647260.3.579.2 .593 1961 Unknown [id number] 2.16.840.1.706279.3.579.2 .593 1961 Unknown [id number] 2.16.840.1.985540.3.579.2 .593 1961 Unknown [id number] 2.16.840.1.118098.3.579.2 .593 1961 Unknown [id number] 2.16.840.1.613728.3.579.2 .593 1961 Unknown [id number] 2.16.840.1.278235.3.579.2 .593 1961 Unknown [id number] 2.16.840.1.210047.3.579.2 .1286 1961 Unknown [id number] 2.16.840.1.109567.3.579.2 .196 1961 Unknown [id number] 2.16.840.1.195598.3.579.2 .196 1961 Unknown [id number] 2.16.840.1.267960.3.579.2 .196 1961 Unknown [id number] 2.16.840.1.660536.3.579.2 .196 1961 Unknown [id number] 2.16.840.1.033252.3.579.2 .196 1961 Unknown [id number] 2.16.840.1.693066.3.579.2 .196 1961 Unknown [id number] 2.16.840.1.941250.3.579.2 .196 1961 Unknown [id number] 2.16.840.1.646180.3.579.2 .1259 1961 Unknown [id number] 2.16.840.1.800276.3.579.2 .1259 1961 Unknown [id number] 2.16.840.1.740306.3.579.2 .1259 1961 Unknown [id number] 2.16.840.1.658465.3.579.2 .1259 1961 Unknown [id number] 2.16.840.1.367455.3.579.2 .1258 1961 Unknown [id number] 2.16.840.1.596363.3.579.2 .1258 1961 Unknown [id number] 2.16.840.1.360930.3.579.2 .1258 1961 Unknown [id number] 2.16.840.1.638998.3.579.2 .1258 1961 Unknown [id number] 2.16.840.1.248423.3.579.2 .1258 1961 Unknown [id number] 2.16.840.1.543667.3.579.2 .1258 1961 Unknown [id number] 2.16.840.1.576862.3.579.2 .1258 1961 Unknown [id number] 2.16.840.1.475735.3.579.2 .1258 1961 Unknown [id number] 2.16.840.1.911626.3.579.2 .1258 1961 Unknown [id number] 2.16.840.1.138419.3.579.2 .1258 1961 Unknown [id number] 2.16.840.1.981462.3.579.2 .1258 1961 Unknown [id number] 2.16.840.1.376140.3.579.2 .1258 1961 Unknown [id number] 2.16.840.1.993346.3.579.2 .1258 1961 Unknown [id number] 2.16.840.1.315178.3.579.2 .1258 1961 Unknown [id number] 2.16.840.1.767968.3.579.2 .1258 1961 Unknown [id number] 2.16.840.1.908171.3.579.2 .1259 1961 Unknown [id number] 2.16.840.1.583863.3.579.2 .1259 1961 Unknown [id number] 2.16.840.1.466193.3.579.2 .1259 1959 Medicare [id number] 1959 Unknown [id number] Private Health Insurance [facility] [id number] Unknown [id number] 2.16.840.1.921480.3.579.2 .531 Unknown [id number] 2.16.840.1.667592.3.579.2 .531 Social History Date Type Detail Facility Start: 11-18-2022 End: 10-14-2023 Tobacco smoking status [facility] Ex-smoker (finding) [facility] Start: 1960 Sex Assigned At Female [facility] Start: 03-25-2023 End: 08-16-2023 Sex Assigned At [facility] Start: 04-06-1976 End: 04-06-2016 History of tobacco use Current smoker [facility] Start: 04-06-1976 End: 04-06-2016 History of tobacco use Cigarette Smoker [facility] Start: 02-09-2023 End: 08-16-2023 Cigarettes smoked current (pack per day) - Reported 1 [facility] Start: 02-09-2023 End: 10-14-2023 Tobacco use and exposure Smokeless tobacco non-user [facility] Start: 05-18-2023 End: 11-18-2024 Alcohol intake Lifetime non-drinker (finding) [facility] Start: 11-13-2022 Alcohol Comment caffeine intake: 1-2 cups per day. [facility] Start: 10-01-2022 Gender identity Identifies [...] Facility 11-20-2022 Functional status Patient at [facility] Work Phone: Mental Status Date Assessment Result Facility 11-20-2022 Cognitive function Cognitive Sta tus Patient is Progressing Toward [facility] Work Phone: Clinical Notes 10-03-2021 [...] S/P bariatric surgery Shingles Slurred speech Stroke ([facility]) 2018 Tenosynovitis, de Quervain Thoracic [...] biotin 5 MG tablet Pt taking OTC (Blossom) Calcium Citrate-Vitamin D (CITRACAL + D PO) Pt taking OTC Hoodin) Cannabinoids (medical cannabis) 1 each carvedilol (COREG) [...] Daily Magnesium 400 MG capsule Pt taking OT[place]olar [place]) Melatonin 12 MG tablet 1 tablet, Nightly Multiple Vitamins-Minerals (BARIATRIC MULTIVITAMINS/IRON PO) Pt taking OTC (Blossom) omeprazole (PRILOSEC) 20 mg, Oral, Daily before [...] 12:22 PM EDT documented in this encounter [facility] 11-14-2024 History of Present illness Narrative Images [...] biotin 5 MG tablet Pt taking OTC (Blossom) Calcium Citrate-Vitamin D (CITRACAL + D PO) Pt taking OTC ([employer]) Cannabinoids (medical cannabis) 1 each carvedilol (COREG) [...] Daily Magnesium 400 MG capsule Pt taking OTC([employer]) Melatonin 12 MG tablet 1 tablet, Nightly Multiple Vitamins-Minerals (BARIATRIC MULTIVITAMINS/IRON PO) Pt taking OTC (Blossom) omeprazole (PRILOSEC) 20 mg, Oral, Daily before [...] Anxiety 05/18/2023 Bipolar disorder with severe depression ([facility]) 05/18/2023 Brain lesion Brain vascular malformation ([facility]) Chronic pain disorder Closed fracture of patella 02/04/2018 Colon polyps Constipation Degenerative cervical disc Degenerative lumbar disc Depression 05/18/2023 Diastolic dysfunction Dizziness 05/18/2023 Dysphagia Fibromyalgia Fibromyalgia Fibromyalgia, primary 2009 Gastrocnemius equinus GERD (gastroesophageal reflux disease) Heart murmur Hematoma of right breast Hemiparesis ([facility]) Hemiparesis, right ([facility]) Hemorrhoid int/external hemorrhoids Hiatal hernia Iron deficiency Left foot pain 03/25/2023 Lower extremity edema Memory loss 2009 Migraine 03/05/2024 Mood disorder mixed mood disorder OSMANY (obstructive sleep apnea) Osteoporosis Overactive bladder Pre-diabetes Primary hypertension 03/25/2023 PTSD (post-traumatic stress disorder) Restless leg Restless leg syndrome 1989 Right knee pain Right sided weakness S/P bariatric surgery Shingles Slurred speech Stroke ([facility]) 2018 Tenosynovitis, de Quervain Thoracic [...] nursing note reviewed. Exam conducted with a barrel washer present. Constitutional: General: She is not in [...] Morbid (severe) obesity due to excess calories ([facility]) - Primary Discussed with patient their [...] urine ratio Chronic kidney disease, stage 3a ([facility]) Monitor labs at minimum every year Relevant Orders Comprehensive metabolic panel Vitamin D 25 hydroxy Associated Problem(s): Chronic kidney disease, stage 3a ([facility]) Monitor labs at minimum every year Associated [...] Morbid (severe) obesity due to excess calories ([facility]) Discussed with patient their BMI (actual, verses recommended). We have also discussed lifestyle modifications: attempts to perform physical activity as chronic conditions allow, also to monitor dietary intake: increasing protein/fruits/veggies and lowering carb intake (unless contraindicated). Limit sodas, juices, and sugary drinks. Has had bariatric surgeries in the past documented in this encounter [place] [id number] History of Present illness Narrative Images from [...] biotin 5 MG tablet Pt taking OTC (Blossom) Calcium Citrate-Vitamin D (CITRACAL + D PO) Pt taking OTC ([employer]) Cannabinoids (medical cannabis) 1 each carvedilol (COREG) [...] Daily Magnesium 400 MG capsule Pt taking OTC([employer]) Melatonin 12 MG tablet 1 tablet, Nightly Multiple Vitamins-Minerals (BARIATRIC MULTIVITAMINS/IRON PO) Pt taking OTC (Blossom) omeprazole (PRILOSEC) 20 mg, Oral, Daily before [...] 12:11 PM EDT documented in this encounter [facility] 10-13-2024 History of Present illness Narrative Associated [...] manages your OSMANY: Daniela Associated Problem(s): Disorientation Tilden to be related to not using PAP [...] going to have out patient MRI . [place]ilden that she had some encephalopathy with not wearing PAP She is now wearing her pap. Is back to her baseline able to remember words etc. No weakness no dizziness noted either Follows with Juany Rascon [employer] SUBJECTIVE: MEDICATIONS: Current Outpatient Medications Medication Instructions amLODIPine (NORVASC) 10 mg, Oral, Daily biotin 5 MG tablet Pt taking OTC (Blossom) Calcium Citrate-Vitamin D (CITRACAL + D PO) Pt taking OTC ([employer]) carvedilol (COREG) 12.5 mg, Oral, 2 times [...] Daily Magnesium 400 MG capsule Pt taking OTC([employer]) Melatonin 12 MG tablet 1 tablet, Nightly Multiple Vitamins-Minerals (BARIATRIC MULTIVITAMINS/IRON PO) Pt taking OTC (Blossom) omeprazole (PRILOSEC) 20 mg, Oral, Daily before [...] Anxiety 05/18/2023 Bipolar disorder with severe depression ([facility]) 05/18/2023 Brain lesion Brain vascular malformation ([facility]) Chronic pain disorder Closed fracture of patella 02/04/2018 Colon polyps Constipation Degenerative cervical disc Degenerative lumbar disc Depression 05/18/2023 Diastolic dysfunction Dizziness 05/18/2023 Dysphagia Fibromyalgia Fibromyalgia Gastrocnemius equinus GERD (gastroesophageal reflux disease) Heart murmur Hematoma of right breast Hemiparesis ([facility]) Hemiparesis, right ([facility]) Hemorrhoid int/external hemorrhoids Hiatal hernia Iron deficiency Left foot pain 03/25/2023 Lower extremity edema Mood disorder mixed mood disorder OSMANY (obstructive sleep apnea) Osteoporosis Overactive bladder Pre-diabetes Primary hypertension 03/25/2023 PTSD (post-traumatic stress disorder) Restless leg Right knee pain Right sided weakness S/P bariatric surgery Shingles Slurred speech Stroke ([facility]) 2018 Tenosynovitis, de Quervain Thoracic [...] meds: amlodipine, losartan, aldactone Disorientation - Primary Tild[place] to be related to not using PAP [...] MG DR capsule documented in this encounter [facility] 08-16-2024 History of Present illness Narrative Associated [...] biotin 5 MG tablet Pt taking OTC (Blossom) Calcium Citrate-Vitamin D (CITRACAL + D PO) Pt taking OTC ([employer]) carvedilol (COREG) 12.5 mg, Oral, 2 times daily with meals cetirizine (ZYRTEC) 10 mg, Oral, Daily diclofenac (Voltaren) 50 MG EC tablet DULoxetine (CYMBALTA) 60 mg, 2 times daily fluticasone (Flonase) 50 MCG/ACT nasal spray 2 sprays, Each Nostril, Daily gabapentin (NEURONTIN) 300 mg, Oral, 2 times daily, Due now losartan (COZAAR) 100 mg, Oral, Daily Magnesium 400 MG capsule Pt taking OTC([employer]) Melatonin 12 MG tablet 1 tablet, Nightly Multiple Vitamins-Minerals (BARIATRIC MULTIVITAMINS/IRON PO) Pt taking OTC (Blossom) omeprazole (PRILOSEC) 20 mg, Oral, Daily before [...] pain 03/25/2023 Lower extremity edema Mood disorder ([facility]) mixed mood disorder OSMANY (obstructive sleep apnea) Osteoporosis ([facility]) Overactive bladder Pre-diabetes Primary hypertension ([facility]) 03/25/2023 PTSD (post-traumatic stress disorder) ([facility]) Restless leg Right knee pain Right sided weakness S/P bariatric surgery Shingles Slurred speech Stroke ([facility]) 2018 Tenosynovitis, de Quervain Thoracic [...] trelegy 100's resolved documented in this encounter [facility] 08-16-2024 Instructions Adelaida Carrion NP - 08/16/2024 11:30 AM EDT Mammogram and lung cancer CT documented in this encounter [facility] 07-27-2024 History of Present illness Narrative Associated Problem(s): Bronchitis Continue OTC mucus relief meds Will add trelegy for bronchitis 100's #2 samples lot [id number], exp 10/28 Fu if not better No s/s resp distress [facility] ER- 07/24/24 Bronchitis & Leurisy Medications: mucus [...] with chief complaint of Hospital Follow-up HPI: [facility] ER- 07/24/24 Bronchitis & Leurisy Medications: mucus [...] biotin 5 MG tablet Pt taking OTC (Blossom) Calcium Citrate-Vitamin D (CITRACAL + D PO) Pt taking OTC ([employer]) carvedilol (COREG) 12.5 mg, Oral, 2 times daily with meals cetirizine (ZYRTEC) 10 mg, Oral, Daily diclofenac (Voltaren) 50 MG EC tablet DULoxetine (CYMBALTA) 60 mg, 2 times daily fluticasone (Flonase) 50 MCG/ACT nasal spray 2 sprays, Each Nostril, Daily gabapentin (NEURONTIN) 300 mg, Oral, 2 times daily, Due now losartan (COZAAR) 100 mg, Oral, Daily Magnesium 400 MG capsule Pt taking OTC([employer]) Melatonin 12 MG tablet 1 tablet, Nightly Multiple Vitamins-Minerals (BARIATRIC MULTIVITAMINS/IRON PO) Pt taking OTC (Blossom) omeprazole (PRILOSEC) 20 mg, Oral, Daily before [...] Anxiety 05/18/2023 Bipolar disorder with severe depression ([facility]) 05/18/2023 Brain lesion Brain vascular malformation Chronic pain disorder Closed fracture of patella 02/04/2018 Colon polyps Constipation Degenerative cervical disc Degenerative lumbar disc Depression ([facility]) 05/18/2023 Diastolic dysfunction Dizziness 05/18/2023 Dysphagia Fibromyalgia Fibromyalgia Gastrocnemius equinus GERD (gastroesophageal reflux disease) Heart murmur Hematoma of right breast Hemiparesis ([facility]) Hemiparesis, right ([facility]) Hemorrhoid int/external hemorrhoids Hiatal hernia Iron deficiency Left foot pain 03/25/2023 Lower extremity edema Mood disorder ([facility]) mixed mood disorder OSMANY (obstructive sleep apnea) Osteoporosis (CMS/[facility]) Overactive bladder Pre-diabetes Primary hypertension ([facility]) 03/25/2023 PTSD (post-traumatic stress disorder) ([facility]) Restless leg Right knee pain Right sided weakness S/P bariatric surgery Shingles Slurred speech Stroke ([facility]) 2018 Tenosynovitis, de Quervain Thoracic [...] meds: amlodipine, losartan documented in this encounter [facility] 07-26-2024 History of Present illness Narrative Images from the original note were not included. Subjective Chief Complaint Patient presents with Altered Mental Status Past Medical History: Diagnosis Date Abnormal mammogram of left breast Achilles tendinitis, right leg Acute gout of right foot, unspecified cause Allergic rhinitis 05/18/2023 Anemia Anxiety 05/18/2023 Bipolar disorder with severe depression ([facility]) 05/18/2023 Brain lesion Brain vascular malformation Chronic [...] hypertension (CMS/HCC) 03/25/2023 PTSD (post-traumatic stress disorder) (CMS/[facility]) Restless leg Right knee pain Right sided weakness S/P bariatric surgery Shingles Slurred speech Stroke ([facility]) 2018 Tenosynovitis, de Quervain Thoracic [...] Review Audit Reviewed by Beronica Reyes MA (Parole Director) on 07/26/24 at 1049 Medication Order Taking? Sig Documenting Provider Last Dose Status amLODIPine (Norvasc) 10 MG tablet [id number] Take 1 tablet (10 mg) by mouth Daily Adelaida Carrion NP 06/11/24 235 azithromycin (Zithromax) 250 MG tablet [id number] Day #1: 2 tablets, and Day 2-5: 1 tablet daily Adelaida Carrion NP Active biotin 5 MG tablet [id number] Pt taking OTC ([employer]) Historical ProviderMD Active Calcium Citrate-Vitamin D (CITRACAL + D PO) [id number] Pt taking OTC ([employer]) Historical ProviderMD Active carvedilol (Coreg) 12.5 MG tablet [id number] Take 1 tablet (12.5 mg) by mouth in the morning and 1 tablet (12.5 mg) in the evening. Take with meals. Adelaida Carrion NP 06/11/24 235 cetirizine (ZyrTEC) 10 MG tablet [id number] Take 1 tablet (10 mg) by mouth Daily Adelaida Carrion NP 06/11/24 235 DULoxetine (Cymbalta) [address] capsule [id number] Take 60 mg by mouth in the morning and 60 mg before bedtime. Do not crush or chew.. Active fluticasone (Flonase) 50 MCG/ACT nasal spray [id number] Administer 2 sprays into each nostril Daily Adelaida Carrion NP 06/11/24 235 gabapentin (Neurontin) 300 MG capsule [id number] Take 1 capsule (300 mg) by mouth in the morning and 1 capsule (300 mg) before bedtime. Due now. MAUREEN Akbar Active losartan (Cozaar) 100 MG tablet [id number] Take 1 tablet (100 mg) by mouth Daily Adelaida Carrion NP 06/11/24 235 Magnesium 400 MG capsule [id number] Pt taking OTC([employer]) Historical ProviderMD Active Melatonin 12 MG tablet [id number] Take 1 tablet by mouth at bedtime Active Multiple Vitamins-Minerals (BARIATRIC MULTIVITAMINS/IRON PO) [id number] Pt taking OTC ([employer]) Historical Provider, Active nystatin (Mycostatin) [id number] UNIT/GM powder [id number] Apply 1 application topically in the morning and 1 application before bedtime. Adelaida Carrion NP Active nystatin (Mycostatin) cream [id number] Adelaida Carrion NP Active omeprazole (PriLOSEC) [address] capsule [id number] Take 1 capsule (20 mg) by mouth in the morning. Take before meals. Adelaida Carrion NP 06/11/242358 rOPINIRole (Requip) 2 MG tablet [id number] Take 1 tablet (2 mg) by mouth at bedtime MAUREEN Akbar Active spironolactone (Aldactone) 50 MG tablet [id number] Take 1 tablet (50 mg) by mouth Daily Adelaida Carrion NP 06/11/242358 tiZANidine (Zanaflex) 4 MG tablet [id number] Take 4 mg by mouth every 8 (eight) hours if needed for muscle spasms 1-2 tablets Adelaida Carrion NP Active traZODone (Desyrel) 150 MG tablet [id number] Take 150 mg by mouth at bedtime Active Vraylar 3 MG capsule [id number] Active HPI AMS -weaned Lacosimide -denies any further headaches and dizziness -denies any recent episodes of confusion -trouble with short and buttermaker helper memory -states custodial is mild -forgets recent conversations and events [...] triceps, wrist extensors, wrist extensors, wrist flexor, chemical handler strength 5/5. LUE Strength deltoid, biceps, triceps, wrist extensors, wrist extensors, wrist flexor, chemical handler strength 5/5. RLE Strength illopsoas, quadriceps, tibialis [...] not all inclusive. Patient was admitted to [facility] from the [facility] on 08/24/2023 with acute respiratory failure and confusion thought to be secondary to metabolic encephalopathy. MOCA 03/01/24 was 26/30. She notes she did speech therapy and responded well to this. She was recently evaluated at [facility] 03/02/2024 for severe encephalopathy. She had brain [...] Averages almost 6 hours a night. ___ [facility] evaluation 02/29/2024: Brain MRI with and without [...] of the brain in July 2019 showed [id number] white matter changes with the largest area [...] in 2 months documented in this encounter [facility] 05-12-2024 History of Present illness Narrative A1c [...] includes CVA. There is no history of CAD/AZ, heart failure or PVD. GERD She reports [...] biotin 5 MG tablet Pt taking OTC ([employer]) Calcium Citrate-Vitamin D (CITRACAL + D PO) [...] Daily Magnesium 400 MG capsule Pt taking OTC([facility]) Melatonin 12 MG tablet 1 tablet, Nightly Multiple Vitamins-Minerals (BARIATRIC MULTIVITAMINS/IRON PO) Pt taking OTC ([facility]) nystatin (Mycostatin) [id number] UNIT/GM powder 1 application , 2 times [...] Anxiety 05/18/2023 Bipolar disorder with severe depression ([facility]) 05/18/2023 Brain lesion Brain vascular malformation Chronic pain disorder Closed fracture of patella 02/04/2018 Colon polyps Constipation Degenerative cervical disc Degenerative lumbar disc Depression (CMS/HCC) 05/18/2023 Diastolic dysfunction Dizziness 05/18/2023 Dysphagia Fibromyalgia Fibromyalgia Gastrocnemius equinus GERD (gastroesophageal reflux disease) Heart murmur Hematoma of right breast Hemiparesis (CMS/[facility]) Hemiparesis, right (CMS/[facility]) Hemorrhoid int/external hemorrhoids Hiatal hernia Iron deficiency Left foot pain 03/25/2023 Lower extremity edema Mood disorder ([facility]) mixed mood disorder OSMANY (obstructive sleep apnea) Osteoporosis (CMS/[facility]) Overactive bladder Pre-diabetes Primary hypertension ([facility]) 03/25/2023 PTSD (post-traumatic stress disorder) ([facility]) Restless leg Right knee pain Right sided weakness S/P bariatric surgery Shingles Slurred speech Stroke ([facility]) 2018 Tenosynovitis, de Quervain Thoracic [...] losartan Chronic kidney disease, stage 3a (HCC) (CMS/[facility]) Monitor labs at minimum every year Body mass index (BMI) 45.0-49.9, adult ([facility]) Other Visit Diagnoses Essential (primary) hypertension ([facility]/HCC) Relevant Medications amLODIPine (Norvasc) 10 MG tablet [...] Morbid (severe) obesity due to excess calories ([facility]) Discussed with patient their BMI (actual, verses recommended). We have also discussed lifestyle modifications: attempts to perform physical activity as chronic conditions allow, also to monitor dietary intake: increasing protein/fruits/veggies and lowering carb intake (unless contraindicated). Limit sodas, juices, and sugary drinks. Has had bariatric surgeries in the past Associated Problem(s): Chronic kidney disease, stage 3a (HCC) ([facility]) Monitor labs at minimum every year Associated Problem(s): GERD (gastroesophageal reflux disease) Recommendations: freq small meals, nothing to eat or drink at least 2 hours prior to bed, limit caffeine, alcohol, as well as spicy foods Meds to limit or avoid if possible: NSAIDS Elevate HOB if possible Current meds: omeprazole Associated Problem(s): Primary hypertension ([facility]) Please check blood pressure daily and [...] your OSMANY: Daniela Associated Problem(s): Hemiparesis, right ([facility]) Stable with this from prior stroke documented in this encounter [facility] 05-12-2024 Instructions Adelaida Carrion NP - 05/12/2024 10:00 AM EST No changes in meds documented in this encounter [facility] 04-12-2024 Telephone encounter Note 03/10/2024 Continue Gabapentin 300 mg BID for RLS. Continue clonazepam 0.5mg PO BID for RLS. This was decreased during recent hospitalization Continue Vimpat 50mg PO BID for seizure prevention [facility] 04-12-2024 Miscellaneous Notes 03/10/2024 Continue Gabapentin 300 mg BID for RLS. Continue clonazepam 0.5mg PO BID for RLS. This was decreased during recent hospitalization Continue Vimpat 50mg PO BID for seizure prevention documented in this encounter [facility] 04-07-2024 History of Present illness Narrative Images [...] performance and score on it. Admitted to [facility] from the [facility] on 08/24/2023 with acute respiratory failure and confusion thought to be secondary to metabolic encephalopathy. LTME in August 2023 negative. Recently evaluated at [facility] on 03/02/2024 for severe encephalopathy. Brain MRI [...] any history of alcohol/substance abuse. Reformed smoker. Miccosukee language [place]raini. Reported relocating from [place] to [place] in 2011. Completed a bachelor's degree. 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 Currently on disability. Resides with of 26 years along with her son, grandson, and 2 dogs. Has 2 children from a prior relationship. MEDICAL HISTORY/MEDICATION: MEDICATIONS: Current Outpatient Medications Medication Instructions amLODIPine (NORVASC) 10 mg, Oral, Daily biotin 5 MG tablet Pt taking OTC ([employer]) Calcium Citrate-Vitamin D (CITRACAL + D PO) Pt taking OTC ([employer]) carvedilol (COREG) 12.5 mg, Oral, 2 times [...] Daily Magnesium 400 MG capsule Pt taking OTC([facility]) Melatonin 12 MG tablet 1 tablet, Oral, Nightly Multiple Vitamins-Minerals (BARIATRIC MULTIVITAMINS/IRON PO) Pt taking OTC ([facility]) nystatin (Mycostatin) [id number] UNIT/GM powder 1 application , 2 times [...] design >16th %ile. Motor/Speed of Processing: Right-handed. Shoe Repairman strength 16th %ile with right-hand, 38th %ile [...] Learning of a word list 79th %ile (2-83-06-12-12), delayed recall 93rd %ile. Recognition discriminability 93rd [...] Please contact me with any questions at [phone]. documented in this encounter [facility] 03-16-2024 History of Present illness Narrative Associated Problem(s): Right bundle branch block (RBBB) determined by electrocardiography At this point I will look at her past EKG's, She has had ECHO in past No symptoms, at this time I do not think that further testing is needed Pt is having a memory test done on apr 07 in [place] Pt is anxious and afraid-pt father had dementia Spironolactone pt is asking for 50mg instead of 25mg Images from the original note were not included. Michelle Be is a 63 y.o. female presents with chief complaint of Anxiety HPI: Here for hospital follow up: AMS She was evaluated at [facility], was seen by Neurology reviewed notes from [...] Daily Magnesium 400 MG capsule Pt taking OTC([facility]) Melatonin 12 MG tablet 1 tablet, Oral, Nightly Multiple Vitamins-Minerals (BARIATRIC MULTIVITAMINS/IRON PO) Pt taking OTC ([facility]) nystatin (Mycostatin) [id number] UNIT/GM powder 1 application , 2 times [...] Anxiety 05/18/2023 Bipolar disorder with severe depression ([facility]) 05/18/2023 Brain lesion Brain vascular malformation Chronic pain disorder Closed fracture of patella 02/04/2018 Colon polyps Constipation Degenerative cervical disc Degenerative lumbar disc Depression ([facility]/HCC) 05/18/2023 Diastolic dysfunction Dizziness 05/18/2023 Dysphagia Fibromyalgia Fibromyalgia Gastrocnemius equinus GERD (gastroesophageal reflux disease) Heart murmur Hematoma of right breast Hemiparesis ([facility]) Hemiparesis, right ([facility]) Hemorrhoid int/external hemorrhoids Hiatal hernia Iron deficiency Left foot pain 03/25/2023 Lower extremity edema Mood disorder ([facility]) mixed mood disorder OSMANY (obstructive sleep apnea) Osteoporosis ([facility]) Overactive bladder Pre-diabetes Primary hypertension ([facility]) 03/25/2023 PTSD (post-traumatic stress disorder) ([facility]) Restless leg Right knee pain Right sided weakness S/P bariatric surgery Shingles Slurred speech Stroke ([facility]) 2018 Tenosynovitis, de Quervain Thoracic [...] to have evaluation documented in this encounter [facility] 03-16-2024 Instructions Adelaida Carrion NP - 03/16/2024 10:00 AM EST Spironolactone: I discontinued the 25mg script for this, sent a new script to [facility], for a 50mg pill, you will take 1 pill daily Memory testing in Apr 2024 Follow up with me in early May, sooner if needed documented in this encounter [facility] 03-16-2024 Telephone encounter Note Yep, sent to [facility]. [facility] 03-16-2024 Miscellaneous Notes Yep, sent to [facility]. Patient calls and states that hospital lowered her requip to 2 mg at bed time. Okay to send as new dosage? documented in this encounter [facility] 03-15-2024 Telephone encounter Note Patient calls and states that hospital lowered her requip to 2 mg at bed time. Okay to send as new dosage? [facility] 03-14-2024 History of Present illness Narrative Images [...] performance and score on it. Admitted to [facility] from the [facility] on 08/24/2023 with acute respiratory failure and confusion thought to be secondary to metabolic encephalopathy. Previous LTME in August 2023 negative. Recently evaluated at [facility] on 03/02/2024 for severe encephalopathy. Brain MRI [...] any history of alcohol/substance abuse. Reformed smoker. Miccosukee language Bahraini. Reported relocating from [place] to [place] in 2011. Completed a bachelors degree. Previously [...] Anxiety 05/18/2023 Bipolar disorder with severe depression ([facility]/HCC) 05/18/2023 Brain lesion Brain vascular malformation Chronic [...] S/P bariatric surgery Shingles Slurred speech Stroke (CMS/[facility]) 2018 Tenosynovitis, de Quervain Thoracic back pain, unspecified back pain laterality, unspecified chronicity Tobacco dependence Vertigo, benign paroxysmal Yeast infection of the skin 05/18/2023 MEDICATIONS: Current Outpatient Medications Medication Instructions amLODIPine (NORVASC) 10 mg, Oral, Daily biotin 5 MG tablet Pt taking OTC ([facility]) Calcium Citrate-Vitamin D (CITRACAL + D PO) Pt taking OTC ([facility]) carvedilol (COREG) 12.5 mg, Oral, [...] Daily Magnesium 400 MG capsule Pt taking OTC([facility]) Melatonin 12 MG tablet 1 tablet, Oral, Nightly Multiple Vitamins-Minerals (BARIATRIC MULTIVITAMINS/IRON PO) Pt taking OTC ([facility]) nystatin (Mycostatin) [id number] UNIT/GM powder 1 application , Topical, 2 [...] Please contact me with any questions at [phone]. documented in this encounter [facility] 02-16-2024 History of Present illness Narrative Pt [...] biotin 5 MG tablet Pt taking OTC ([employer]) Calcium Citrate-Vitamin D (CITRACAL + D PO) Pt taking OTC ([employer]) carvedilol (COREG) 12.5 mg, Oral, 2 times [...] Daily Magnesium 400 MG capsule Pt taking OTC([employer]) Melatonin 12 MG tablet 1 tablet, Oral, Nightly Multiple Vitamins-Minerals (BARIATRIC MULTIVITAMINS/IRON PO) Pt taking OTC ([employer]) nystatin (Mycostatin) [id number] UNIT/GM powder 1 application , Topical, 2 [...] Anxiety 05/18/2023 Bipolar disorder with severe depression ([facility]) 05/18/2023 Brain lesion Brain vascular malformation Chronic pain disorder Closed fracture of patella 02/04/2018 Colon polyps Constipation Degenerative cervical disc Degenerative lumbar disc Depression ([facility]/HCC) 05/18/2023 Diastolic dysfunction Dizziness 05/18/2023 Dysphagia Fibromyalgia Fibromyalgia Gastrocnemius equinus GERD (gastroesophageal reflux disease) Heart murmur Hematoma of right breast Hemiparesis ([facility]) Hemiparesis, right ([facility]) Hemorrhoid int/external hemorrhoids Hiatal hernia Iron deficiency Left foot pain 03/25/2023 Lower extremity edema Mood disorder ([facility]) mixed mood disorder OSMANY (obstructive sleep apnea) Osteoporosis ([facility]) Overactive bladder Pre-diabetes Primary hypertension ([facility]) 03/25/2023 PTSD (post-traumatic stress disorder) ([facility]) Restless leg Right knee pain Right sided weakness S/P bariatric surgery Shingles Slurred speech Stroke ([facility]) 2018 Tenosynovitis, de Quervain Thoracic [...] nursing note reviewed. Exam conducted with a barrel washer present. Constitutional: General: She is not in [...] allow documented in this encounter [facility] 01-28-2024 History of Present illness Narrative Associated [...] ER fu for UTI and dehydration. See [facility] for HPI Was sent home on Bactrim. Feels completely fine now, no fever, chills, malodorous urine, no constipation diarrhea or abd pain SUBJECTIVE: MEDICATIONS: Current Outpatient Medications Medication Instructions amLODIPine (NORVASC) 10 mg, Oral, Daily biotin 5 MG tablet Pt taking OTC ([employer]) Calcium Citrate-Vitamin D (CITRACAL + D PO) Pt taking OTC ([employer]) carvedilol (COREG) 12.5 mg, Oral, 2 times [...] Daily Magnesium 400 MG capsule Pt taking OTC([employer]) Melatonin 12 MG tablet 1 tablet, Oral, Nightly Multiple Vitamins-Minerals (BARIATRIC MULTIVITAMINS/IRON PO) Pt taking OTC ([employer]) nystatin (Mycostatin) [id number] UNIT/GM powder 1 application , Topical, 2 [...] Anxiety 05/18/2023 Bipolar disorder with severe depression ([facility]) 05/18/2023 Brain lesion Brain vascular malformation Chronic pain disorder Closed fracture of patella 02/04/2018 Colon polyps Constipation Degenerative cervical disc Degenerative lumbar disc Depression ([facility]) 05/18/2023 Diastolic dysfunction Dizziness 05/18/2023 Dysphagia Fibromyalgia Fibromyalgia Gastrocnemius equinus GERD (gastroesophageal reflux disease) Heart murmur Hematoma of right breast Hemiparesis ([facility]) Hemiparesis, right ([facility]) Hemorrhoid int/external hemorrhoids Hiatal hernia Iron deficiency Left foot pain 03/25/2023 Lower extremity edema Mood disorder ([facility]) mixed mood disorder OSMANY (obstructive sleep apnea) Osteoporosis ([facility]) Overactive bladder Pre-diabetes Primary hypertension ([facility]) 03/25/2023 PTSD (post-traumatic stress disorder) ([facility]) Restless leg Right knee pain Right sided weakness S/P bariatric surgery Shingles Slurred speech Stroke ([facility]) 2018 Tenosynovitis, de Quervain Thoracic [...] of the risks of continued smoking: stroke, AZ, all forms of cancer, lung disease, and [...] Relevant Orders Flu vaccine, MDCK, quadrivalent, PF ([id number]) (Flucelvax single dose syringe) Associated Problem(s): Tobacco dependence The patient has been advised of the risks of continued smoking: stroke, AZ, all forms of cancer, lung disease, and . Options for quitting smoking include: cold turkey, hypnosis, acupuncture, nicotine replacement meds (gum, lozenges, and patches), Buproprion, and Varenicline. At this time pt is encouraged to evaluate their goals for wanting to quit smoking, and reach out to provider when ready to start this process documented in this encounter [facility] 01-04-2024 History of Present illness Narrative Associated [...] compliance problems. There is no history of CAD/AZ, heart failure or PVD. Identifiable causes of hypertension include sleep apnea. SUBJECTIVE: MEDICATIONS: Current Outpatient Medications Medication Instructions amLODIPine (NORVASC) 10 mg, Oral, Daily biotin 5 MG tablet Pt taking OTC ([employer]) Calcium Citrate-Vitamin D (CITRACAL + D PO) Pt taking OTC ([facility]) carvedilol (COREG) 12.5 mg, Oral, [...] Daily Magnesium 400 MG capsule Pt taking OTC([facility]) Melatonin 12 MG tablet 1 tablet, Oral, Nightly Multiple Vitamins-Minerals (BARIATRIC MULTIVITAMINS/IRON PO) Pt taking OTC ([facility]) nystatin (Mycostatin) 500000 UNIT/GM powder 1 application , Topical, 2 [...] Anxiety 05/18/2023 Bipolar disorder with severe depression ([facility]) 05/18/2023 Brain lesion Brain vascular malformation Chronic pain disorder Closed fracture of patella 02/04/2018 Colon polyps Constipation Degenerative cervical disc Degenerative lumbar disc Depression ([facility]) 05/18/2023 Diastolic dysfunction Dizziness 05/18/2023 Dysphagia Fibromyalgia Fibromyalgia Gastrocnemius equinus GERD (gastroesophageal reflux disease) Heart murmur Hematoma of right breast Hemiparesis ([facility]) Hemiparesis, right ([facility]) Hemorrhoid int/external hemorrhoids Hiatal hernia Iron deficiency Left foot pain 03/25/2023 Lower extremity edema Mood disorder ([facility]) mixed mood disorder OSMANY (obstructive sleep apnea) Osteoporosis ([facility]) Overactive bladder Pre-diabetes Primary hypertension ([facility]) 03/25/2023 PTSD (post-traumatic stress disorder) ([facility]) Restless leg Right knee pain Right sided weakness S/P bariatric surgery Shingles Slurred speech Stroke ([facility]) 2018 Tenosynovitis, de Quervain Thoracic [...] spray documented in this encounter [facility] 12-09-2023 History of Present illness Narrative Images [...] machine. She is normally seen at the [facility] and was last seen on [...] melatonin. She was last seen in the [facility] on June 24, 2023. Since [...] for short term insomnia and not for custodial insomnia. She is compliant on her download [...] was counseled on the risks of stroke, AZ, and sudden with OSMANY, along with the [...] year documented in this encounter [facility] 12-08-2023 History of Present illness Narrative Patient [...] Anxiety 05/18/2023 Bipolar disorder with severe depression ([facility]/HCC) 05/18/2023 Brain lesion Brain vascular malformation Chronic [...] hypertension (CMS/HCC) 03/25/2023 PTSD (post-traumatic stress disorder) ([facility]) Restless leg Right knee pain Right sided weakness S/P bariatric surgery Shingles Slurred speech Stroke ([facility]) 2018 Tenosynovitis, de Quervain Thoracic [...] Review Audit Reviewed by Festus Baron MA (Parole Director) on 12/08/23 at 1525 Medication Order Taking? Sig Documenting Provider Last Dose Status amLODIPine (Norvasc) 10 MG tablet [id number] Take 1 tablet (10 mg) by mouth Daily Adelaida Carrion NP Active biotin 5 MG tablet [id number] Pt taking OTC ([employer]) Historical ProviderMD Active Calcium Citrate-Vitamin D (CITRACAL + D PO) 35356057 Pt taking OTC ([employer]) Historical Provider, Active Cariprazine HCl (Vraylar) 4.5 MG capsule [id number] Take 4.5 mg by mouth Daily Active carvedilol (Coreg) 12.5 MG tablet [id number] Take 1 tablet (12.5 mg) by mouth in the morning and 1 tablet (12.5 mg) in the evening. Take with meals. Adelaida Carrion NP Active cetirizine (ZyrTEC) 10 MG tablet [id number] Take 1 tablet (10 mg) by mouth Daily Adelaida Carrion NP Active clonazePAM (KlonoPIN) 1 MG tablet [id number] Take 1 tablet (1 mg) by mouth 2 (two) times a day as needed for anxiety Do not start before October 16, 2023. Sonam Brown NP 11/15/23 2359 DULoxetine (Cymbalta) [address] capsule [id number] Take 60 mg by mouth in the morning and 60 mg before bedtime. Do not crush or chew.. Active fluconazole (Diflucan) 150 MG tablet [id number] 1 pill every 3 days for a total of 3 doses Adelaida Carrion NP Active fluticasone (Flonase) 50 MCG/ACT nasal spray [id number] Administer 2 sprays into each nostril Daily Adelaida Carrion NP 11/04/23 2359 gabapentin (Neurontin) 300 MG capsule [id number] Take 1 capsule (300 mg) by mouth in the morning and 1 capsule (300 mg) before bedtime. Sonam Brown NP Active losartan (Cozaar) 100 MG tablet [id number] Take 1 tablet (100 mg) by mouth Daily Adelaida Carrion NP Active Magnesium 400 MG capsule [id number] Pt taking OTC([employer]) Historical ProviderMD Active Melatonin 12 MG tablet [id number] Take 1 tablet by mouth at bedtime Active Multiple Vitamins-Minerals (BARIATRIC MULTIVITAMINS/IRON PO) [id number] Pt taking OTC ([employer]) Historical ProviderMD Active nystatin (Mycostatin) 617653 UNIT/GM powder [id number] Apply 1 application topically in the morning and 1 application before bedtime. Adelaida Carrion NP Active omeprazole (PriLOSEC) [address] capsule [id number] Take 1 capsule (20 mg) by mouth in the morning. Take before meals. Adelaida Carrion NP Active rOPINIRole (Requip) 4 MG tablet [id number] Take 1 tablet (4 mg) by mouth at bedtime Sonam Brown NP Active spironolactone (Aldactone) 25 MG tablet [id number] Take 2 tablets (50 mg) by mouth Daily Adelaida Carrion NP Active tiZANidine (Zanaflex) 2 MG tablet [id number] Take 2 mg by mouth every 8 (eight) hours Adelaida Carrion NP Active traZODone (Desyrel) 150 MG tablet [id number] Take 150 mg by mouth at bedtime Active HPI AMS -Patient was admitted to [facility] from the [facility] on 08/24/2023 with acute respiratory failure and confusion thought to be secondary to metabolic encephalopathy. Patient denies any new hospital stays. -She was seen by Neurology who thought she had a toxic encephalopathy secondary to medication overuse. -She was monitored on LTME which did not show any evidence of seizures. -After she was discharged she had a short stay at the intermediate facility on 09/03/2023 and she was discharged [...] ankle and great toe bilaterally. Coordination Right: Zyrehv-ir-kbid normal. Rapid alternating movement normal.Left: Evyvom-ke-ucll normal. Rapid alternating movement normal. Gait Casual gait is normal including stance, stride, and arm swing. Motor Examination RUE Strength deltoid, biceps, triceps, wrist extensors, wrist extensors, wrist flexor, chemical handler strength 5/5. LUE Strength deltoid, biceps, triceps, wrist extensors, wrist extensors, wrist flexor, chemical handler strength 5/5. RLE Strength illopsoas, quadriceps, tibialis [...] not all inclusive. Patient was admitted to [facility] from the [facility] on 08/24/2023 with acute respiratory failure and [...] of the brain in July 2019 showed uesr-nv-nemhumbb white matter changes with the largest area [...] recommendations documented in this encounter [facility] 05-18-2023 History of Present illness Narrative Associated [...] (BARIATRIC MULTIVITAMINS/IRON PO) Bariatric Multivitamins/Iron nystatin (Mycostatin) 017204 UNIT/GM powder 1 application , Topical, 2 [...] Anxiety 05/18/2023 Bipolar disorder with severe depression ([facility]) 05/18/2023 Brain vascular malformation Chronic pain disorder Colon polyps Constipation Degenerative cervical disc Degenerative lumbar disc Depression ([facility]) 05/18/2023 Diastolic dysfunction Dizziness 05/18/2023 Dysphagia Fibromyalgia Gastrocnemius equinus GERD (gastroesophageal reflux disease) Heart murmur Hematoma of right breast Hemiparesis, right ([facility]) Hemorrhoid int/external hemorrhoids Hiatal hernia Iron deficiency Left foot pain 03/25/2023 Lower extremity edema Mood disorder ([facility]) mixed mood disorder OSMANY (obstructive sleep apnea) Osteoporosis ([facility]) Overactive bladder Pre-diabetes Primary hypertension ([facility]) 03/25/2023 PTSD (post-traumatic stress disorder) ([facility]) Restless leg Right knee pain Right sided weakness S/P bariatric surgery Shingles Slurred speech Stroke ([facility]) 2018 Tenosynovitis, de Quervain Thoracic [...] prn documented in this encounter [facility] 03-23-2023 Procedure note [facility] 12-19-2022 Evaluation note Encounter Date Diagnosis Assessment Notes Dec, Skin candidiasis (ICD-10 - B37.2) Drink plenty fluids, get plenty of rest. Continue home medications as prescribed. Take the Diflucan as prescribed until gone. Follow-up with your family physician if no improvement in 2 to 3 days [employer] Other 08-17-2023 Discharge summary Author Eduardo barrett [facility] November 20, 2022 6:38am Note Date/Time November 20, 2022 6: 38am [facility] [address] [place] [address] Discharge Summary Signed Patient: Michelle Be MR#: [id number] : 1960 Acct:[id number] Age/Sex: 61 / F Adm Date: 3 Loc: Room: [address] [place] [address]: Gaudencio Monk MD Copies to: [...] at that time.? She reports moving to [place] from [place] in 2011 and was then diagnosed with bipolar disorder at [facility] in [place], where she still follows with a therapist.? Shereports that she has been with 7 therapists in the last 9 years and is currentlycompleting EMDR with her current therapist. Past hospitalizations: Her most recent hospitalization was 5 years ago [place] in [place] for the same feeling she is experiencing [...] worked since 2010 due to her fibromyalgia.? [facility]. Relationships: Reports [...] self or stop treatment, but to call [employer], [employer] or come to the nearest emergency room. 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 (insert date/time [...] Eduardo Monk MD> 11/20/22 0638 [facility] Work Phone: 1(588) 623-377608-16-2023 Progress note Author Eduardo barrett [facility] November 19, 2022 6:25am Note Date/Time November 19, 2022 6: 25am [facility] [address] [place] [address] Psychiatry Progress Note Signed Patient: Michelle Be MR#: [id number] : 1960 Acct:[id number] Age/Sex: 61 / F Adm Date: 3 Loc: 1S Room: 0M0757-8 Type : ADM IN Attending Dr: Gaudencio [...] Eduardo Monk MD> 11/19/22 0625 [facility] Work Phone: 1(112) 528-287208-15-2023 Progress note Author Eduardo barrett [facility] November 18, 2022 11:01am Note Date/Time November 18, 2022 10 :11am [facility] [address] [place] [address] Psychiatry Progress Note Signed Patient: Michelle Be MR#: [id number] : 1960 Acct:[id number] Age/Sex: 61 / F Adm Date: 3 Loc: Room: [address] [place] [address] Type : ADM IN Attending Dr: Gaudencio [...] by requesting a schedule 2 referring to [facility] for pain management specifically every 4-6 hours [...] time Documented By: Eduardo Monk MD 3 [id number] Signed By: <Electronically signed by Eduardo Monk MD> 11/18/22 1101 <Electronically signed by MD DA Rangel> 11/18/22 1011 [facility] Work Phone: 1(335) 226-628108-14-2023 History and physical note Author Eduardo barrett [facility] November 17, 2022 12:48pm Note Date/Time November 17, 2022 12 :48pm [facility] [address] [place] [address] Psychiatry H&P Signed Patient: Michelle Be MR#: [id number] : 1960 Acct:[id number] Age/Sex: 61 / F Adm Date: 3 Loc: Room: [address] [place] [address] Type: ADM IN Attending Dr: Gaudencio Monk [...] at that time. She reports moving to [place] from [place] in 2011 and was then diagnosed with bipolar disorder at [facility] in [place], where she still follows with a therapist. Shereports that she has been with 7 therapists in the last 9 years and is currentlycompleting EMDR with her current therapist. Past hospitalizations: Her most recent hospitalization was 5 years ago [facility] for the same feeling she [...] worked since 2010 due to her fibromyalgia. [facility]. Relationships: Reports [...] equal bilaterally. CN XII: Tongue protrusion midline [facility] Medical History (Updated 11/17/22 @ 10:42 [...] Meds Medications and Allergies Allergies levetiracetam [From [facility]] Allergy (Verified 11/17/22 02:16) Unknown Reaction milnacipran [...] signed by Eduardo Monk MD> 11/17/22 1248 [facility] Work Phone: 1(792) 454-593703-23-2023 NoteCONSULTATION CONSULTATION DATE: 06/26/2022 To: Nurse Carrion [...] facet joint injection under fluoroscopic guidance.[id number] NotePROCEDURE: XR SHOULDER RT 2V or > [...] Electronically authenticated by: KINGSLEY CLEMENTS Date: 2022-05-09 09:21[facility]01-23-2023 NotePROCEDURE: XR WRIST LT MIN [...] by: KINGSLEY CLEMENTS Date: 2022-04-28 13:31[id number] NoteCONSULTATION CONSULTATION DATE: 04/03/2022 HISTORY OF PRESENT [...] in three months, unless otherwise indicated.[id number] NoteCONSULTATION CONSULTATION DATE: 01/02/2022 This is a [...] [facility] in [place] for the compounded cream. She needs [...] three months' time unless otherwise indicated.[id number] NotePROCEDURE: XR ANKLE RT MIN 3 VIEWS, [...] Electronically authenticated by: KINGSLEY CLEMENTS Date: 2022-01-01 13:11[facility]09-28-2022 NotePROCEDURE: XR ANKLE RT MIN [...] Electronically authenticated by: KINGSLEY CLEMENTS Date: 2022-01-01 13:11[facility]08-18-2022 NotePROCEDURE: XR FOOT RT MIN 3 VIEWS HISTORY: Pain in right foot , chronic COMPARISON: XR foot right 2020 FINDINGS: BONES:No fracture, dislocation, bone lesion. Small calcaneal degenerative enthesophytes. SOFT TISSUES:No visible soft tissue swelling. EFFUSION:None visible. OTHER: Negative. IMPRESSION: 1. No acute bone abnormality or significant degenerative joint disease. Electronically authenticated by: KINGSLEY CLEMENTS Date: 2021-11-21 16:13[facility]06-30-2022 NoteCONSULTATION CONSULTATION DATE: 10/03/2021 This [...] patient agrees with the plan of care. [facility] Signed and Approved by: ZELDA MCDANIEL . 10/10/2021 10:22:00[facility] Diagnosis Onset Date Resolution Status Allergies acute Bipolar 2 disorder acute Hypertension acute Morbid obesity with BMI of 45.0-49.9, adult acute OSMANY (obstructive sleep apnea) acute Restless legs syndrome acute [facility] Work Phone: Evaluation noteNo InformationNort [employer] [place] Other Evaluation noteNo assessment information available [facility] Work Phone: Evaluation note* Diagnosis Encounter for annual wellness visit (AWV) in Medicare patient- Primary OSMANY (obstructive sleep apnea) Obstructive sleep apnea (adult) (pediatric) Chronic pain disorder Chronic pain syndrome Gastroesophageal reflux disease, unspecified whether esophagitis present Overactive bladder Hypertonicity of bladder Lower extremity edema Edema Pre-diabetes Other abnormal glucose Morbid obesity ([facility]) Morbid obesity Yeast infection of the skin Candidiasis of skin and nails Tobacco dependence Tobacco use disorder Mood disorder ([facility]) Unspecified episodic mood disorder Primary hypertension ([facility]) Unspecified essential hypertension Left hip pain Pain in joint, pelvic region and thigh Open wound of anterior abdominal wall, initial encounter documented in this encounter [facility]* Diagnosis Acute cystitis with hematuria- Primary documented in this encounter [facility]* Diagnosis Left foot pain- Primary Pain in soft tissues of limb Primary hypertension ([facility]) Unspecified essential hypertension Class 3 severe obesity due to excess calories without serious comorbidity with body mass index (BMI) of 45.0 to 49.9 in adult ([facility]) Encounter for annual wellness visit (AWV) [...] Tobacco dependence Tobacco use disorder Mood disorder ([facility]) Unspecified episodic mood disorder Primary hypertension ([facility]) Unspecified essential hypertension Left hip pain Pain in joint, pelvic region and thigh Open wound of anterior abdominal wall, initial encounter Primary hypertension ([facility])- Primary Unspecified essential hypertension Yeast infection of the skin Candidiasis of skin and nails Morbid obesity ([facility]) Morbid obesity Primary hypertension ([facility])- Primary Unspecified essential hypertension Encounter for screening mammogram for malignant neoplasm of breast Gastroesophageal reflux disease, unspecified whether esophagitis present Acute gout of right foot, unspecified cause Osteoporosis, unspecified osteoporosis type, unspecified pathological fracture presence ([facility]) Morbid obesity ([facility]) Morbid obesity Pre-diabetes Other abnormal glucose Anemia, unspecified type Vitamin deficiency Unspecified vitamin deficiency Post-viral cough syndrome Primary hypertension ([facility])- Primary Unspecified essential hypertension Allergic rhinitis, unspecified Acute cough Morbid obesity ([facility]) Morbid obesity Former cigarette smoker Personal history of tobacco use, presenting hazards to health Toxic metabolic encephalopathy- Primary Hemiparesis, right ([facility]) Unspecified hemiplegia affecting unspecified side Acute respiratory failure with hypoxia ([facility]) Heart murmur Undiagnosed cardiac murmurs Primary hypertension ([facility]) Unspecified essential hypertension Morbid obesity ([facility]) Morbid obesity Bipolar disorder with severe depression ([facility]) Slurred speech Other speech disturbance Bilateral lower extremity edema- Primary Primary hypertension ([facility]) Unspecified essential hypertension Lower extremity edema Edema Essential (primary) hypertension ([facility]) Unspecified essential hypertension Gastro-esophageal reflux disease without esophagitis Allergic rhinitis, unspecified Bilateral lower extremity edema- Primary Morbid (severe) obesity due to excess calories ([facility]) Body mass index (BMI) 45.0-49.9, adult ([facility]) Pre-diabetes Other abnormal glucose Bilateral lower extremity edema- Primary Essential (primary) hypertension ([facility]) Unspecified essential hypertension Allergic rhinitis, unspecified OSMANY (obstructive sleep apnea) Obstructive sleep apnea (adult) (pediatric) Primary hypertension ([facility]) Unspecified essential hypertension Morbid obesity ([facility]) Morbid obesity Acute cystitis without hematuria- Primary Tobacco dependence Tobacco use disorder Needs flu shot Need for prophylactic vaccination and inoculation against influenza Morbid obesity ([facility]) Morbid obesity documented in this encounter [facility] HealthcareEvaluation note* Diagnosis Left foot pain- Primary Pain in soft tissues of limb Primary hypertension ([facility]) Unspecified essential hypertension Class 3 severe obesity due to excess calories without serious comorbidity with body mass index (BMI) of 45.0 to 49.9 in adult ([facility]) Encounter for annual wellness visit (AWV) in Medicare patient- Primary OSMANY (obstructive sleep apnea) Obstructive sleep apnea (adult) (pediatric) Chronic pain disorder Chronic pain syndrome Gastroesophageal reflux disease, unspecified whether esophagitis present Overactive bladder Hypertonicity of bladder Lower extremity edema Edema Pre-diabetes Other abnormal glucose Morbid obesity ([facility]) Morbid obesity Yeast infection of the skin Candidiasis of skin and nails Tobacco dependence Tobacco use disorder Mood disorder ([facility]) Unspecified episodic mood disorder Primary hypertension ([facility]) Unspecified essential hypertension Left hip pain Pain in joint, pelvic region and thigh Open wound of anterior abdominal wall, initial encounter Primary hypertension ([facility])- Primary Unspecified essential hypertension Yeast infection of the skin Candidiasis of skin and nails Morbid obesity ([facility]) Morbid obesity Primary hypertension ([facility])- Primary Unspecified essential hypertension Encounter for screening mammogram for malignant neoplasm of breast Gastroesophageal reflux disease, unspecified whether esophagitis present Acute gout of right foot, unspecified cause Osteoporosis, unspecified osteoporosis type, unspecified pathological fracture presence ([facility]) Morbid obesity ([facility]) Morbid obesity Pre-diabetes Other abnormal glucose Anemia, unspecified type Vitamin deficiency Unspecified vitamin deficiency Post-viral cough syndrome Primary hypertension ([facility])- Primary Unspecified essential hypertension Allergic rhinitis, unspecified Acute cough Morbid obesity ([facility]) Morbid obesity Former cigarette smoker Personal history of tobacco use, presenting hazards to health Toxic metabolic encephalopathy- Primary Hemiparesis, right ([facility]) Unspecified hemiplegia affecting unspecified side Acute respiratory failure with hypoxia ([facility]) Heart murmur Undiagnosed cardiac murmurs Primary hypertension ([facility] Unspecified essential hypertension Morbid obesity ([facility]) Morbid obesity Bipolar disorder with severe depression ([facility]) Slurred speech Other speech disturbance Bilateral lower extremity edema- Primary Primary hypertension ([facility]) Unspecified essential hypertension Lower extremity edema Edema Essential (primary) hypertension ([facility]) Unspecified essential hypertension Gastro-esophageal reflux disease without esophagitis Allergic rhinitis, unspecified Bilateral lower extremity edema- Primary Morbid (severe) obesity due to excess calories ([facility]) Body mass index (BMI) 45.0-49.9, adult ([facility]) Pre-diabetes Other abnormal glucose Bilateral lower extremity edema- Primary Essential (primary) hypertension ([facility]) Unspecified essential hypertension Allergic rhinitis, unspecified OSMANY (obstructive sleep apnea) Obstructive sleep apnea (adult) (pediatric) Primary hypertension ([facility]) Unspecified essential hypertension Morbid obesity ([facility]) Morbid obesity Acute cystitis without hematuria- Primary Tobacco dependence Tobacco use disorder Needs flu shot Need for prophylactic vaccination and inoculation against influenza Morbid obesity ([facility]) Morbid obesity Restless leg Restless legs syndrome (RLS) documented in this encounter [facility]* Diagnosis Left foot pain- Primary Pain in soft tissues of limb Primary hypertension ([facility]) Unspecified essential hypertension Class 3 severe obesity due to excess calories without serious comorbidity with body mass index (BMI) of 45.0 to 49.9 in adult ([facility]) Encounter for annual wellness visit (AWV) in Medicare patient- Primary OSMANY (obstructive sleep apnea) Obstructive sleep apnea (adult) (pediatric) Chronic pain disorder Chronic pain syndrome Gastroesophageal reflux disease, unspecified whether esophagitis present Overactive bladder Hypertonicity of bladder Lower extremity edema Edema Pre-diabetes Other abnormal glucose Morbid obesity ([facility]) Morbid obesity Yeast infection of the skin Candidiasis of skin and nails Tobacco dependence Tobacco use disorder Mood disorder ([facility]) Unspecified episodic mood disorder Primary hypertension ([facility]) Unspecified essential hypertension Left hip pain Pain in joint, pelvic region and thigh Open wound of anterior abdominal wall, initial encounter Primary hypertension ([facility] [facility])- Primary Unspecified essential hypertension Yeast infection of the skin Candidiasis of skin and nails Morbid obesity ([facility]) Morbid obesity Primary hypertension ([facility])- Primary Unspecified essential hypertension Encounter for screening mammogram for malignant neoplasm of breast Gastroesophageal reflux disease, unspecified whether esophagitis present Acute gout of right foot, unspecified cause Osteoporosis, unspecified osteoporosis type, unspecified pathological fracture presence ([facility]) Morbid obesity ([facility]) Morbid obesity Pre-diabetes Other abnormal glucose Anemia, unspecified type Vitamin deficiency Unspecified vitamin deficiency Post-viral cough syndrome Primary hypertension ([facility])- Primary Unspecified essential hypertension Allergic rhinitis, unspecified Acute cough Morbid obesity ([facility]) Morbid obesity Former cigarette smoker Personal history of tobacco use, presenting hazards to health Toxic metabolic encephalopathy- Primary Hemiparesis, right ([facility]) Unspecified hemiplegia affecting unspecified side Acute respiratory failure with hypoxia ([facility]) Heart murmur Undiagnosed cardiac murmurs Primary hypertension ([facility]) Unspecified essential hypertension Morbid obesity ([facility]) Morbid obesity Bipolar disorder with severe depression ([facility]) Slurred speech Other speech disturbance Bilateral lower extremity edema- Primary Primary hypertension ([facility]) Unspecified essential hypertension Lower extremity edema Edema Essential (primary) hypertension ([facility]) Unspecified essential hypertension Gastro-esophageal reflux disease without esophagitis Allergic rhinitis, unspecified Bilateral lower extremity edema- Primary Morbid (severe) obesity due to excess calories ([facility]) Body mass index (BMI) 45.0-49.9, adult ([facility]) Pre-diabetes Other abnormal glucose Bilateral lower extremity edema- Primary Essential (primary) hypertension ([facility]) Unspecified essential hypertension Allergic rhinitis, unspecified OSMANY (obstructive sleep apnea) Obstructive sleep apnea (adult) (pediatric) Primary hypertension ([facility]) Unspecified essential hypertension Morbid obesity ([facility]) Morbid obesity Acute cystitis without hematuria- Primary Tobacco dependence Tobacco use disorder Needs flu shot Need for prophylactic vaccination and inoculation against influenza Morbid obesity ([facility]) Morbid obesity Well woman exam with routine gynecological exam- Primary Routine gynecological examination Morbid obesity ([facility]) Morbid obesity documented in this encounter [facility]* Diagnosis Left foot pain- Primary Pain in soft tissues of limb Primary hypertension ([facility]) Unspecified essential hypertension Class 3 severe obesity due to excess calories without serious comorbidity with body mass index (BMI) of 45.0 to 49.9 in adult ([facility]) Encounter for annual wellness visit (AWV) in Medicare patient- Primary OSMANY (obstructive sleep apnea) Obstructive sleep apnea (adult) (pediatric) Chronic pain disorder Chronic pain syndrome Gastroesophageal reflux disease, unspecified whether esophagitis present Overactive bladder Hypertonicity of bladder Lower extremity edema Edema Pre-diabetes Other abnormal glucose Morbid obesity ([facility]) Morbid obesity Yeast infection of the skin Candidiasis of skin and nails Tobacco dependence Tobacco use disorder Mood disorder ([facility]) Unspecified episodic mood disorder Primary hypertension ([facility]) Unspecified essential hypertension Left hip pain Pain in joint, pelvic region and thigh Open wound of anterior abdominal wall, initial encounter Primary hypertension ([facility])- Primary Unspecified essential hypertension Yeast infection of the skin Candidiasis of skin and nails Morbid obesity ([facility]) Morbid obesity Primary hypertension ([facility])- Primary Unspecified essential hypertension Encounter for screening mammogram for malignant neoplasm of breast Gastroesophageal reflux disease, unspecified whether esophagitis present Acute gout of right foot, unspecified cause Osteoporosis, unspecified osteoporosis type, unspecified pathological fracture presence ([facility]) Morbid obesity ([facility]) Morbid obesity Pre-diabetes Other abnormal glucose Anemia, unspecified type Vitamin deficiency Unspecified vitamin deficiency Post-viral cough syndrome Primary hypertension ([facility])- Primary Unspecified essential hypertension Allergic rhinitis, unspecified Acute cough Morbid obesity ([facility]) Morbid obesity Former cigarette smoker Personal history of tobacco use, presenting hazards to health Toxic metabolic encephalopathy- Primary Hemiparesis, right ([facility]) Unspecified hemiplegia affecting unspecified side Acute respiratory failure with hypoxia ([facility] Heart murmur Undiagnosed cardiac murmurs Primary hypertension ([facility] Unspecified essential hypertension Morbid obesity ([facility]) Morbid obesity Bipolar disorder with severe depression ([facility]) Slurred speech Other speech disturbance Bilateral lower extremity edema- Primary Primary hypertension ([facility]) Unspecified essential hypertension Lower extremity edema Edema Essential (primary) hypertension ([facility]) Unspecified essential hypertension Gastro-esophageal reflux disease without esophagitis Allergic rhinitis, unspecified Bilateral lower extremity edema- Primary Morbid (severe) obesity due to excess calories ([facility]) Body mass index (BMI) 45.0-49.9, adult ([facility]) Pre-diabetes Other abnormal glucose Bilateral lower extremity edema- Primary Essential (primary) hypertension ([facility]) Unspecified essential hypertension Allergic rhinitis, unspecified OSMANY (obstructive sleep apnea) Obstructive sleep apnea (adult) (pediatric) Primary hypertension ([facility]) Unspecified essential hypertension Morbid obesity ([facility]) Morbid obesity Acute cystitis without hematuria- Primary Tobacco dependence Tobacco use disorder Needs flu shot Need for prophylactic vaccination and inoculation against influenza Morbid obesity ([facility]) Morbid obesity Well woman exam with routine gynecological exam- Primary Routine gynecological examination Morbid obesity ([facility]) Morbid obesity Essential (primary) hypertension ([facility]) Unspecified essential hypertension Allergic rhinitis, unspecified documented in this encounter [facility]* Diagnosis Left foot pain- Primary Pain in soft tissues of limb Primary hypertension ([facility]) Unspecified essential hypertension Class 3 severe obesity due to excess calories without serious comorbidity with body mass index (BMI) of 45.0 to 49.9 in adult ([facility]) Encounter for annual wellness visit (AWV) in Medicare patient- Primary OSMANY (obstructive sleep apnea) Obstructive sleep apnea (adult) (pediatric) Chronic pain disorder Chronic pain syndrome Gastroesophageal reflux disease, unspecified whether esophagitis present Overactive bladder Hypertonicity of bladder Lower extremity edema Edema Pre-diabetes Other abnormal glucose Morbid obesity ([facility]) Morbid obesity Yeast infection of the skin Candidiasis of skin and nails Tobacco dependence Tobacco use disorder Mood disorder ([facility]) Unspecified episodic mood disorder Primary hypertension ([facility]) Unspecified essential hypertension Left hip pain Pain in joint, pelvic region and thigh Open wound of anterior abdominal wall, initial encounter Primary hypertension ([facility])- Primary Unspecified essential hypertension Yeast infection of the skin Candidiasis of skin and nails Morbid obesity ([facility]) Morbid obesity Primary hypertension ([facility])- Primary Unspecified essential hypertension Encounter for screening mammogram for malignant neoplasm of breast Gastroesophageal reflux disease, unspecified whether esophagitis present Acute gout of right foot, unspecified cause Osteoporosis, unspecified osteoporosis type, unspecified pathological fracture presence ([facility]) Morbid obesity ([facility]) Morbid obesity Pre-diabetes Other abnormal glucose Anemia, unspecified type Vitamin deficiency Unspecified vitamin deficiency Post-viral cough syndrome Primary hypertension ([facility])- Primary Unspecified essential hypertension Allergic rhinitis, unspecified Acute cough Morbid obesity ([facility]) Morbid obesity Former cigarette smoker Personal history of tobacco use, presenting hazards to health Toxic metabolic encephalopathy- Primary Hemiparesis, right ([facility]) Unspecified hemiplegia affecting unspecified side Acute respiratory failure with hypoxia ([facility] Heart murmur Undiagnosed cardiac murmurs Primary hypertension ([facility] Unspecified essential hypertension Morbid obesity ([facility]) Morbid obesity Bipolar disorder with severe depression ([facility]) Slurred speech Other speech disturbance Bilateral lower extremity edema- Primary Primary hypertension ([facility]) Unspecified essential hypertension Lower extremity edema Edema Essential (primary) hypertension ([facility]) Unspecified essential hypertension Gastro-esophageal reflux disease without esophagitis Allergic rhinitis, unspecified Bilateral lower extremity edema- Primary Morbid (severe) obesity due to excess calories ([facility]) Body mass index (BMI) 45.0-49.9, adult ([facility]) Pre-diabetes Other abnormal glucose Bilateral lower extremity edema- Primary Essential (primary) hypertension ([facility]/HCC) Unspecified essential hypertension Allergic rhinitis, unspecified OSMANY (obstructive sleep apnea) Obstructive sleep apnea (adult) (pediatric) Primary hypertension ([facility]) Unspecified essential hypertension Morbid obesity ([facility]) Morbid obesity Acute cystitis without hematuria- Primary Tobacco dependence Tobacco use disorder Needs flu shot Need for prophylactic vaccination and inoculation against influenza Morbid obesity (CMS/HCC) Morbid obesity Well woman exam with routine gynecological exam- Primary Routine gynecological examination Morbid obesity ([facility]) Morbid obesity Allergic rhinitis, unspecified documented in this encounter [facility]* Diagnosis Left foot pain- Primary Pain in soft tissues of limb Primary hypertension ([facility]) Unspecified essential hypertension Class 3 severe obesity due to excess calories without serious comorbidity with body mass index (BMI) of 45.0 to 49.9 in adult ([facility]) Encounter for annual wellness visit (AWV) in Medicare patient- Primary OSMANY (obstructive sleep apnea) Obstructive sleep apnea (adult) (pediatric) Chronic pain disorder Chronic pain syndrome Gastroesophageal reflux disease, unspecified whether esophagitis present Overactive bladder Hypertonicity of bladder Lower extremity edema Edema Pre-diabetes Other abnormal glucose Morbid obesity ([facility]) Morbid obesity Yeast infection of the skin Candidiasis of skin and nails Tobacco dependence Tobacco use disorder Mood disorder ([facility]) Unspecified episodic mood disorder Primary hypertension ([facility]) Unspecified essential hypertension Left hip pain Pain in joint, pelvic region and thigh Open wound of anterior abdominal wall, initial encounter Primary hypertension ([facility])- Primary Unspecified essential hypertension Yeast infection of the skin Candidiasis of skin and nails Morbid obesity ([facility]) Morbid obesity Primary hypertension ([facility])- Primary Unspecified essential hypertension Encounter for screening mammogram for malignant neoplasm of breast Gastroesophageal reflux disease, unspecified whether esophagitis present Acute gout of right foot, unspecified cause Osteoporosis, unspecified osteoporosis type, unspecified pathological fracture presence ([facility]) Morbid obesity ([facility]) Morbid obesity Pre-diabetes Other abnormal glucose Anemia, unspecified type Vitamin deficiency Unspecified vitamin deficiency Post-viral cough syndrome Primary hypertension ([facility])- Primary Unspecified essential hypertension Allergic rhinitis, unspecified Acute cough Morbid obesity ([facility]) Morbid obesity Former cigarette smoker Personal history of tobacco use, presenting hazards to health Toxic metabolic encephalopathy- Primary Hemiparesis, right ([facility]) Unspecified hemiplegia affecting unspecified side Acute respiratory failure with hypoxia ([facility] Heart murmur Undiagnosed cardiac murmurs Primary hypertension ([facility] Unspecified essential hypertension Morbid obesity ([facility]) Morbid obesity Bipolar disorder with severe depression ([facility]) Slurred speech Other speech disturbance Bilateral lower extremity edema- Primary Primary hypertension ([facility]) Unspecified essential hypertension Lower extremity edema Edema Essential (primary) hypertension ([facility]) Unspecified essential hypertension Gastro-esophageal reflux disease without esophagitis Allergic rhinitis, unspecified Bilateral lower extremity edema- Primary Morbid (severe) obesity due to excess calories ([facility]) Body mass index (BMI) 45.0-49.9, adult ([facility]) Pre-diabetes Other abnormal glucose Bilateral lower extremity edema- Primary Essential (primary) hypertension ([facility]) Unspecified essential hypertension Allergic rhinitis, unspecified OSMANY (obstructive sleep apnea) Obstructive sleep apnea (adult) (pediatric) Primary hypertension ([facility]) Unspecified essential hypertension Morbid obesity ([facility]) Morbid obesity Acute cystitis without hematuria- Primary Tobacco dependence Tobacco use disorder Needs flu shot Need for prophylactic vaccination and inoculation against influenza Morbid obesity ([facility]) Morbid obesity Well woman exam with routine gynecological exam- Primary Routine gynecological examination Morbid obesity ([facility]) Morbid obesity Yeast infection of the skin Candidiasis of skin and nails documented in this encounter [facility]* Diagnosis Left foot pain- Primary Pain in soft tissues of limb Primary hypertension ([facility]) Unspecified essential hypertension Class 3 severe obesity due to excess calories without serious comorbidity with body mass index (BMI) of 45.0 to 49.9 in adult ([facility]) Encounter for annual wellness visit (AWV) in Medicare patient- Primary OSMANY (obstructive sleep apnea) Obstructive sleep apnea (adult) (pediatric) Chronic pain disorder Chronic pain syndrome Gastroesophageal reflux disease, unspecified whether esophagitis present Overactive bladder Hypertonicity of bladder Lower extremity edema Edema Pre-diabetes Other abnormal glucose Morbid obesity ([facility]) Morbid obesity Yeast infection of the skin Candidiasis of skin and nails Tobacco dependence Tobacco use disorder Mood disorder ([facility]) Unspecified episodic mood disorder Primary hypertension ([facility]) Unspecified essential hypertension Left hip pain Pain in joint, pelvic region and thigh Open wound of anterior abdominal wall, initial encounter Primary hypertension ([facility])- Primary Unspecified essential hypertension Yeast infection of the skin Candidiasis of skin and nails Morbid obesity ([facility]) Morbid obesity Primary hypertension ([facility])- Primary Unspecified essential hypertension Encounter for screening mammogram for malignant neoplasm of breast Gastroesophageal reflux disease, unspecified whether esophagitis present Acute gout of right foot, unspecified cause Osteoporosis, unspecified osteoporosis type, unspecified pathological fracture presence ([facility]) Morbid obesity ([facility]) Morbid obesity Pre-diabetes Other abnormal glucose Anemia, unspecified type Vitamin deficiency Unspecified vitamin deficiency Post-viral cough syndrome Primary hypertension ([facility])- Primary Unspecified essential hypertension Allergic rhinitis, unspecified Acute cough Morbid obesity ([facility]) Morbid obesity Former cigarette smoker Personal history of tobacco use, presenting hazards to health Toxic metabolic encephalopathy- Primary Hemiparesis, right ([facility]) Unspecified hemiplegia affecting unspecified side Acute respiratory failure with hypoxia ([facility]) Heart murmur Undiagnosed cardiac murmurs Primary hypertension ([facility] Unspecified essential hypertension Morbid obesity ([facility]) Morbid obesity Bipolar disorder with severe depression ([facility]) Slurred speech Other speech disturbance Bilateral lower extremity edema- Primary Primary hypertension ([facility]) Unspecified essential hypertension Lower extremity edema Edema Essential (primary) hypertension ([facility]) Unspecified essential hypertension Gastro-esophageal reflux disease without esophagitis Allergic rhinitis, unspecified Bilateral lower extremity edema- Primary Morbid (severe) obesity due to excess calories ([facility]) Body mass index (BMI) 45.0-49.9, adult ([facility]) Pre-diabetes Other abnormal glucose Bilateral lower extremity edema- Primary Essential (primary) hypertension ([facility]) Unspecified essential hypertension Allergic rhinitis, unspecified OSMANY (obstructive sleep apnea) Obstructive sleep apnea (adult) (pediatric) Primary hypertension ([facility]) Unspecified essential hypertension Morbid obesity ([facility]) Morbid obesity Acute cystitis without hematuria- Primary Tobacco dependence Tobacco use disorder Needs flu shot Need for prophylactic vaccination and inoculation against influenza Morbid obesity ([facility]) Morbid obesity Well woman exam with routine gynecological exam- Primary Routine gynecological examination Morbid obesity ([facility]) Morbid obesity Metabolic encephalopathy- Primary OSMANY (obstructive sleep apnea) Obstructive sleep apnea (adult) (pediatric) Restless leg Restless legs syndrome (RLS) 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 ([facility]) Degeneration of intervertebral disc of lumbar region with discogenic back pain and lower extremity pain Memory change Memory loss documented in this encounter [facility]Evaluation [facility]* Diagnosis Left foot pain- Primary Pain in soft tissues of limb Primary hypertension ([facility]) Unspecified essential hypertension Class 3 severe obesity due to excess calories without serious comorbidity with body mass index (BMI) of 45.0 to 49.9 in adult ([facility]) Encounter for annual wellness visit (AWV) in Medicare patient- Primary OSMANY (obstructive sleep apnea) Obstructive sleep apnea (adult) (pediatric) Chronic pain disorder Chronic pain syndrome Gastroesophageal reflux disease, unspecified whether esophagitis present Overactive bladder Hypertonicity of bladder Lower extremity edema Edema Pre-diabetes Other abnormal glucose Morbid obesity ([facility]) Morbid obesity Yeast infection of the skin Candidiasis of skin and nails Tobacco dependence Tobacco use disorder Mood disorder ([facility]/HCC) Unspecified episodic mood disorder Primary hypertension ([facility]) Unspecified essential hypertension Left hip pain Pain in joint, pelvic region and thigh Open wound of anterior abdominal wall, initial encounter Primary hypertension ([facility]/HCC)- Primary Unspecified essential hypertension Yeast infection of the skin Candidiasis of skin and nails Morbid obesity ([facility]) Morbid obesity Primary hypertension ([facility])- Primary Unspecified essential hypertension Encounter for screening mammogram for malignant neoplasm of breast Gastroesophageal reflux disease, unspecified whether esophagitis present Acute gout of right foot, unspecified cause Osteoporosis, unspecified osteoporosis type, unspecified pathological fracture presence ([facility]) Morbid obesity ([facility]) Morbid obesity Pre-diabetes Other abnormal glucose Anemia, unspecified type Vitamin deficiency Unspecified vitamin deficiency Post-viral cough syndrome Primary hypertension ([facility])- Primary Unspecified essential hypertension Allergic rhinitis, unspecified Acute cough Morbid obesity ([facility]) Morbid obesity Former cigarette smoker Personal history of tobacco use, presenting hazards to health Toxic metabolic encephalopathy- Primary Hemiparesis, right ([facility]) Unspecified hemiplegia affecting unspecified side Acute respiratory failure with hypoxia ([facility]) Heart murmur Undiagnosed cardiac murmurs Primary hypertension ([facility] Unspecified essential hypertension Morbid obesity ([facility]) Morbid obesity Bipolar disorder with severe depression ([facility]) Slurred speech Other speech disturbance Bilateral lower extremity edema- Primary Primary hypertension ([facility]/HCC) Unspecified essential hypertension Lower extremity edema Edema Essential (primary) hypertension ([facility]) Unspecified essential hypertension Gastro-esophageal reflux disease without esophagitis Allergic rhinitis, unspecified Bilateral lower extremity edema- Primary Morbid (severe) obesity due to excess calories ([facility]) Body mass index (BMI) 45.0-49.9, adult ([facility]) Pre-diabetes Other abnormal glucose Bilateral lower extremity edema- Primary Essential (primary) hypertension ([facility]) Unspecified essential hypertension Allergic rhinitis, unspecified OSMANY (obstructive sleep apnea) Obstructive sleep apnea (adult) (pediatric) Primary hypertension ([facility]) Unspecified essential hypertension Morbid obesity ([facility]) Morbid obesity Acute cystitis without hematuria- Primary Tobacco dependence Tobacco use disorder Needs flu shot Need for prophylactic vaccination and inoculation against influenza Morbid obesity (CMS/HCC) Morbid obesity Well woman exam with routine gynecological exam- Primary Routine gynecological examination Morbid obesity (CMS/HCC) Morbid obesity Altered mental status, unspecified altered mental status type- Primary Restless leg Restless legs syndrome (RLS) 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[facility]) OSMANY (obstructive sleep apnea) Obstructive sleep apnea (adult) (pediatric) documented in this encounter [facility] HealthcareEvaluation note* Diagnosis Left foot pain- Primary Pain in soft tissues of limb Primary hypertension ([facility]) Unspecified essential hypertension Class 3 severe obesity due to excess calories without serious comorbidity with body mass index (BMI) of 45.0 to 49.9 in adult ([facility]) Encounter for annual wellness visit (AWV) in Medicare patient- Primary OSMANY (obstructive sleep apnea) Obstructive sleep apnea (adult) (pediatric) Chronic pain disorder Chronic pain syndrome Gastroesophageal reflux disease, unspecified whether esophagitis present Overactive bladder Hypertonicity of bladder Lower extremity edema Edema Pre-diabetes Other abnormal glucose Morbid obesity ([facility]) Morbid obesity Yeast infection of the skin Candidiasis of skin and nails Tobacco dependence Tobacco use disorder Mood disorder ([facility]) Unspecified episodic mood disorder Primary hypertension ([facility]) Unspecified essential hypertension Left hip pain Pain in joint, pelvic region and thigh Open wound of anterior abdominal wall, initial encounter Primary hypertension ([facility]/HCC)- Primary Unspecified essential hypertension Yeast infection of the skin Candidiasis of skin and nails Morbid obesity ([facility]) Morbid obesity Primary hypertension ([facility])- Primary Unspecified essential hypertension Encounter for screening mammogram for malignant neoplasm of breast Gastroesophageal reflux disease, unspecified whether esophagitis present Acute gout of right foot, unspecified cause Osteoporosis, unspecified osteoporosis type, unspecified pathological fracture presence ([facility]) Morbid obesity ([facility]) Morbid obesity Pre-diabetes Other abnormal glucose Anemia, unspecified type Vitamin deficiency Unspecified vitamin deficiency Post-viral cough syndrome Primary hypertension ([facility])- Primary Unspecified essential hypertension Allergic rhinitis, unspecified Acute cough Morbid obesity ([facility]) Morbid obesity Former cigarette smoker Personal history of tobacco use, presenting hazards to health Toxic metabolic encephalopathy- Primary Hemiparesis, right ([facility]) Unspecified hemiplegia affecting unspecified side Acute respiratory failure with hypoxia ([facility] Heart murmur Undiagnosed cardiac murmurs Primary hypertension ([facility] Unspecified essential hypertension Morbid obesity ([facility]) Morbid obesity Bipolar disorder with severe depression ([facility]) Slurred speech Other speech disturbance Bilateral lower extremity edema- Primary Primary hypertension ([facility]) Unspecified essential hypertension Lower extremity edema Edema Essential (primary) hypertension ([facility]) Unspecified essential hypertension Gastro-esophageal reflux disease without esophagitis Allergic rhinitis, unspecified Bilateral lower extremity edema- Primary Morbid (severe) obesity due to excess calories ([facility]) Body mass index (BMI) 45.0-49.9, adult ([facility]) Pre-diabetes Other abnormal glucose Bilateral lower extremity edema- Primary Essential (primary) hypertension ([facility]) Unspecified essential hypertension Allergic rhinitis, unspecified OSMANY (obstructive sleep apnea) Obstructive sleep apnea (adult) (pediatric) Primary hypertension ([facility]) Unspecified essential hypertension Morbid obesity ([facility]) Morbid obesity Acute cystitis without hematuria- Primary Tobacco dependence Tobacco use disorder Needs flu shot Need for prophylactic vaccination and inoculation against influenza Morbid obesity ([facility]) Morbid obesity Well woman exam with routine gynecological exam- Primary Routine gynecological examination Morbid obesity ([facility]) Morbid obesity Altered mental status, unspecified altered mental status type- Primary Memory change Memory loss Concentration deficit 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 ([facility]) PTSD (post-traumatic stress disorder) ([facility]) Posttraumatic stress disorder Bipolar affective disorder, remission status unspecified ([facility]) Family history of dementia Family history [...] Edema Pre-diabetes Other abnormal glucose Morbid obesity ([facility]) Morbid obesity Yeast infection of the skin Candidiasis of skin and nails Tobacco dependence Tobacco use disorder Mood disorder ([facility]) Unspecified episodic mood disorder Primary hypertension ([facility]) Unspecified essential hypertension Left hip pain Pain in joint, pelvic region and thigh Open wound of anterior abdominal wall, initial encounter Primary hypertension ([facility])- Primary Unspecified essential hypertension Yeast infection of the skin Candidiasis of skin and nails Morbid obesity ([facility]) Morbid obesity Primary hypertension ([facility])- Primary Unspecified essential hypertension Allergic rhinitis, unspecified Acute cough Morbid obesity ([facility]) Morbid obesity Former cigarette smoker Personal history of tobacco use, presenting hazards to health Toxic metabolic encephalopathy- Primary Hemiparesis, right ([facility]) Unspecified hemiplegia affecting unspecified side Acute respiratory failure with hypoxia ([facility] Heart murmur Undiagnosed cardiac murmurs Primary hypertension ([facility] Unspecified essential hypertension Morbid obesity ([facility]) Morbid obesity Bipolar disorder with severe depression ([facility]) Slurred speech Other speech disturbance Bilateral lower extremity edema- Primary Primary hypertension ([facility]) Unspecified essential hypertension Lower extremity edema Edema Essential (primary) hypertension ([facility]) Unspecified essential hypertension Gastro-esophageal reflux disease without esophagitis Allergic rhinitis, unspecified Bilateral lower extremity edema- Primary Morbid (severe) obesity due to excess calories ([facility]) Body mass index (BMI) 45.0-49.9, adult ([facility]) Pre-diabetes Other abnormal glucose Bilateral lower extremity edema- Primary Essential (primary) hypertension ([facility]) Unspecified essential hypertension Allergic rhinitis, unspecified OSMANY (obstructive sleep apnea) Obstructive sleep apnea (adult) (pediatric) Primary hypertension ([facility]) Unspecified essential hypertension Morbid obesity ([facility]) Morbid obesity Acute cystitis without hematuria- Primary Tobacco dependence Tobacco use disorder Needs flu shot Need for prophylactic vaccination and inoculation against influenza Morbid obesity ([facility]) Morbid obesity Well woman exam with routine gynecological exam- Primary Routine gynecological examination Morbid obesity ([facility]) Morbid obesity Restless leg Restless legs syndrome (RLS) Metabolic encephalopathy- Primary OSMANY (obstructive sleep apnea) Obstructive sleep apnea (adult) (pediatric) Morbid obesity ([facility]) Morbid obesity Bilateral lower extremity edema Tobacco dependence Tobacco use disorder Bipolar disorder with severe depression ([facility]) At risk for polypharmacy Anxiety Anxiety [...] Edema Pre-diabetes Other abnormal glucose Morbid obesity ([facility]) Morbid obesity Yeast infection of the skin Candidiasis of skin and nails Tobacco dependence Tobacco use disorder Mood disorder ([facility]) Unspecified episodic mood disorder Primary hypertension ([facility]) Unspecified essential hypertension Left hip pain Pain in joint, pelvic region and thigh Open wound of anterior abdominal wall, initial encounter Primary hypertension ([facility])- Primary Unspecified essential hypertension Yeast infection of the skin Candidiasis of skin and nails Morbid obesity (CMS/HCC) Morbid obesity Primary hypertension ([facility]/HCC)- Primary Unspecified essential hypertension Allergic rhinitis, unspecified Acute cough Morbid obesity ([facility]/HCC) Morbid obesity Former cigarette smoker Personal history of tobacco use, presenting hazards to health Toxic metabolic encephalopathy- Primary Hemiparesis, right ([facility]) Unspecified hemiplegia affecting unspecified side Acute respiratory failure with hypoxia ([facility]) Heart murmur Undiagnosed cardiac murmurs Primary hypertension ([facility]/HCC) Unspecified essential hypertension Morbid obesity ([facility]/HCC) Morbid obesity Bipolar disorder with severe depression ([facility]) Slurred speech Other speech disturbance Bilateral lower extremity edema- Primary Primary hypertension ([facility]/HCC) Unspecified essential hypertension Lower extremity edema Edema Essential (primary) hypertension ([facility]) Unspecified essential hypertension Gastro-esophageal reflux disease without esophagitis Allergic rhinitis, unspecified Bilateral lower extremity edema- Primary Morbid (severe) obesity due to excess calories ([facility]) Body mass index (BMI) 45.0-49.9, adult ([facility]) Pre-diabetes Other abnormal glucose Bilateral lower extremity edema- Primary Essential (primary) hypertension ([facility]/HCC) Unspecified essential hypertension Allergic rhinitis, unspecified OSMANY (obstructive sleep apnea) Obstructive sleep apnea (adult) (pediatric) Primary hypertension ([facility]/HCC) Unspecified essential hypertension Morbid obesity ([facility]) Morbid obesity Acute cystitis without hematuria- Primary Tobacco dependence Tobacco use disorder Needs flu shot Need for prophylactic vaccination and inoculation against influenza Morbid obesity (CMS/HCC) Morbid obesity Well woman exam with routine gynecological exam- Primary Routine gynecological examination Morbid obesity ([facility]/HCC) Morbid obesity Metabolic encephalopathy- Primary OSMANY (obstructive sleep apnea) Obstructive sleep apnea (adult) (pediatric) Morbid obesity ([facility]/HCC) Morbid obesity Bilateral lower extremity edema Tobacco dependence Tobacco use disorder Bipolar disorder with severe depression ([facility]) At risk for polypharmacy Anxiety Anxiety state, unspecified Primary hypertension ([facility]) Unspecified essential hypertension Right bundle branch block (RBBB) determined by electrocardiography documented in this encounter [facility]* Diagnosis Yeast infection of the skin- Primary Candidiasis of skin and nails documented in this encounter [facility]* Diagnosis 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[facility])- Primary Restless leg Restless legs syndrome (RLS) Metabolic encephalopathy documented in this encounter [facility]* Diagnosis OSMANY (obstructive sleep apnea)- Primary Obstructive sleep apnea (adult) (pediatric) Restless leg Restless legs syndrome (RLS) documented in this encounter [facility] HealthcareEvaluation note* Diagnosis Bilateral lower extremity edema- Primary Essential (primary) hypertension (CMS/HCC) Unspecified essential hypertension Allergic rhinitis, unspecified OSMANY (obstructive sleep apnea) Obstructive sleep apnea (adult) (pediatric) Primary hypertension (CMS/HCC) Unspecified essential hypertension Morbid obesity (CMS/HCC) Morbid obesity documented in this encounter [facility] HealthcareEvaluation note* Diagnosis Lower extremity edema Edema documented in this encounter [facility]* Diagnosis Encounter for annual [...] health Toxic metabolic encephalopathy- Primary Hemiparesis, right (CMS/[facility]) Unspecified hemiplegia affecting unspecified side Acute respiratory failure with hypoxia (CMS/[facility]) Heart murmur Undiagnosed cardiac murmurs Primary hypertension (CMS/HCC) Unspecified essential hypertension Morbid obesity (CMS/HCC) Morbid obesity Bipolar disorder with severe depression (CMS/[facility]) Slurred speech Other speech disturbance Bilateral lower extremity edema- Primary Primary hypertension (CMS/HCC) Unspecified essential hypertension Lower extremity edema Edema Essential (primary) hypertension (CMS/HCC) Unspecified essential hypertension Gastro-esophageal reflux disease without esophagitis Allergic rhinitis, unspecified Bilateral lower extremity edema- Primary Morbid (severe) obesity due to excess calories ([facility]) Body mass index (BMI) 45.0-49.9, adult (CMS/[facility]) Pre-diabetes Other abnormal glucose Bilateral lower extremity edema- Primary Essential (primary) hypertension ([facility]) Unspecified essential hypertension Allergic rhinitis, unspecified OSMANY (obstructive sleep apnea) Obstructive sleep apnea (adult) (pediatric) Primary hypertension ([facility]) Unspecified essential hypertension Morbid obesity ([facility]) Morbid obesity Acute cystitis without hematuria- Primary Tobacco dependence Tobacco use disorder Needs flu shot Need for prophylactic vaccination and inoculation against influenza Morbid obesity ([facility]) Morbid obesity Well woman exam with routine gynecological exam- Primary Routine gynecological examination Morbid obesity ([facility]) Morbid obesity Metabolic encephalopathy- Primary OSMANY (obstructive sleep apnea) Obstructive sleep apnea (adult) (pediatric) Morbid obesity ([facility]) Morbid obesity Bilateral lower extremity edema Tobacco dependence Tobacco use disorder Bipolar disorder with severe depression ([facility]) At risk for polypharmacy Anxiety Anxiety state, unspecified Primary hypertension ([facility]) Unspecified essential hypertension Right bundle branch block (RBBB) determined by electrocardiography Metabolic encephalopathy- Primary Memory change Memory loss Altered mental status, unspecified altered mental status type Concentration deficit PTSD (post-traumatic stress disorder) ([facility]) Posttraumatic stress disorder Bipolar affective disorder, remission status unspecified ([facility]) Family history of dementia Family history of other neurological diseases 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[facility]) OSMANY (obstructive sleep apnea) Obstructive sleep apnea (adult) (pediatric) documented in this encounter [facility] HealthcareEvaluation note* Diagnosis Encounter for annual wellness visit (AWV) in Medicare patient- Primary OSMANY (obstructive sleep apnea) Obstructive sleep apnea (adult) (pediatric) Chronic pain disorder Chronic pain syndrome Gastroesophageal reflux disease, unspecified whether esophagitis present Overactive bladder Hypertonicity of bladder Lower extremity edema Edema Pre-diabetes Other abnormal glucose Morbid obesity ([facility]) Morbid obesity Yeast infection of the skin Candidiasis of skin and nails Tobacco dependence Tobacco use disorder Mood disorder ([facility]) Unspecified episodic mood disorder Primary hypertension ([facility]) Unspecified essential hypertension Left hip pain Pain in joint, pelvic region and thigh Open wound of anterior abdominal wall, initial encounter Primary hypertension ([facility])- Primary Unspecified essential hypertension Yeast infection of the skin Candidiasis of skin and nails Morbid obesity ([facility]) Morbid obesity Primary hypertension ([facility])- Primary Unspecified essential hypertension Allergic rhinitis, unspecified Acute cough Morbid obesity ([facility]) Morbid obesity Former cigarette smoker Personal history of tobacco use, presenting hazards to health Toxic metabolic encephalopathy- Primary Hemiparesis, right ([facility]) Unspecified hemiplegia affecting unspecified side Acute respiratory failure with hypoxia ([facility]) Heart murmur Undiagnosed cardiac murmurs Primary hypertension ([facility] Unspecified essential hypertension Morbid obesity ([facility] Morbid obesity Bipolar disorder with severe depression ([facility]) Slurred speech Other speech disturbance Bilateral lower extremity edema- Primary Primary hypertension ([facility]) Unspecified essential hypertension Lower extremity edema Edema Essential (primary) hypertension ([facility]) Unspecified essential hypertension Gastro-esophageal reflux disease without esophagitis Allergic rhinitis, unspecified Bilateral lower extremity edema- Primary Morbid (severe) obesity due to excess calories ([facility]) Body mass index (BMI) 45.0-49.9, adult ([facility]) Pre-diabetes Other abnormal glucose Bilateral lower extremity edema- Primary Essential (primary) hypertension ([facility]) Unspecified essential hypertension Allergic rhinitis, unspecified OSMANY (obstructive sleep apnea) Obstructive sleep apnea (adult) (pediatric) Primary hypertension ([facility]) Unspecified essential hypertension Morbid obesity ([facility]) Morbid obesity Acute cystitis without hematuria- Primary Tobacco dependence Tobacco use disorder Needs flu shot Need for prophylactic vaccination and inoculation against influenza Morbid obesity ([facility]) Morbid obesity Well woman exam with routine gynecological exam- Primary Routine gynecological examination Morbid obesity ([facility]) Morbid obesity Metabolic encephalopathy- Primary OSMANY (obstructive sleep apnea) Obstructive sleep apnea (adult) (pediatric) Morbid obesity ([facility]) Morbid obesity Bilateral lower extremity edema Tobacco dependence Tobacco use disorder Bipolar disorder with severe depression ([facility]) At risk for polypharmacy Anxiety Anxiety state, unspecified Primary hypertension ([facility]) Unspecified essential hypertension Right bundle branch [...] Edema Pre-diabetes Other abnormal glucose Morbid obesity ([facility]) Morbid obesity Yeast infection of the skin Candidiasis of skin and nails Tobacco dependence Tobacco use disorder Mood disorder ([facility]) Unspecified episodic mood disorder Primary hypertension ([facility]/HCC) Unspecified essential hypertension Left hip pain Pain in joint, pelvic region and thigh Open wound of anterior abdominal wall, initial encounter Primary hypertension ([facility]/HCC)- Primary Unspecified essential hypertension Yeast infection of the skin Candidiasis of skin and nails Morbid obesity ([facility]/HCC) Morbid obesity Primary hypertension ([facility]/HCC)- Primary Unspecified essential hypertension Allergic rhinitis, unspecified Acute cough Morbid obesity (CMS/HCC) Morbid obesity Former cigarette smoker Personal history of tobacco use, presenting hazards to health Toxic metabolic encephalopathy- Primary Hemiparesis, right (CMS/[facility]) Unspecified hemiplegia affecting unspecified side Acute respiratory failure with hypoxia ([facility]) Heart murmur Undiagnosed cardiac murmurs Primary hypertension ([facility] Unspecified essential hypertension Morbid obesity ([facility]) Morbid obesity Bipolar disorder with severe depression ([facility]) Slurred speech Other speech disturbance Bilateral lower extremity edema- Primary Primary hypertension ([facility]/HCC) Unspecified essential hypertension Lower extremity edema Edema Essential (primary) hypertension ([facility]) Unspecified essential hypertension Gastro-esophageal reflux disease without esophagitis Allergic rhinitis, unspecified Bilateral lower extremity edema- Primary Morbid (severe) obesity due to excess calories ([facility]) Body mass index (BMI) 45.0-49.9, adult ([facility]) Pre-diabetes Other abnormal glucose Bilateral lower extremity edema- Primary Essential (primary) hypertension ([facility]/HCC) Unspecified essential hypertension Allergic rhinitis, unspecified OSMANY (obstructive sleep apnea) Obstructive sleep apnea (adult) (pediatric) Primary hypertension ([facility]) Unspecified essential hypertension Morbid obesity ([facility]) Morbid obesity Acute cystitis without hematuria- Primary Tobacco dependence Tobacco use disorder Needs flu shot Need for prophylactic vaccination and inoculation against influenza Morbid obesity ([facility]/HCC) Morbid obesity Well woman exam with routine gynecological exam- Primary Routine gynecological examination Morbid obesity ([facility]/HCC) Morbid obesity Metabolic encephalopathy- Primary OSMANY (obstructive sleep apnea) Obstructive sleep apnea (adult) (pediatric) Morbid obesity ([facility]) Morbid obesity Bilateral lower extremity edema Tobacco dependence Tobacco use disorder Bipolar disorder with severe depression ([facility]) At risk for polypharmacy Anxiety Anxiety state, unspecified Primary hypertension ([facility]) Unspecified essential hypertension Right bundle branch block (RBBB) determined by electrocardiography Primary hypertension ([facility])- Primary Unspecified essential hypertension Chronic kidney disease, stage 3a (HCC) ([facility]) Morbid (severe) obesity due to excess calories ([facility]) Body mass index (BMI) 45.0-49.9, adult ([facility]/HCC) OSMANY (obstructive sleep apnea) Obstructive sleep apnea (adult) (pediatric) Hemiparesis, right (CMS/HCC) Unspecified hemiplegia affecting unspecified side Gastroesophageal reflux disease, unspecified whether esophagitis present Metabolic encephalopathy Essential (primary) hypertension (CMS/HCC) Unspecified essential hypertension Allergic rhinitis, unspecified Gastro-esophageal reflux disease without esophagitis Bilateral lower extremity edema documented in this encounter [facility] HealthcareEvaluation note* Diagnosis Encounter for annual [...] (CMS/HCC) Unspecified episodic mood disorder Primary hypertension ([facility]) Unspecified essential hypertension Left hip pain Pain in joint, pelvic region and thigh Open wound of anterior abdominal wall, initial encounter Primary hypertension (CMS/HCC)- Primary Unspecified essential hypertension Yeast infection of the skin Candidiasis of skin and nails Morbid obesity ([facility]/HCC) Morbid obesity Primary hypertension ([facility]/HCC)- Primary Unspecified essential hypertension Allergic rhinitis, unspecified Acute cough Morbid obesity ([facility]/HCC) Morbid obesity Former cigarette smoker Personal history of tobacco use, presenting hazards to health Toxic metabolic encephalopathy- Primary Hemiparesis, right ([facility]) Unspecified hemiplegia affecting unspecified side Acute respiratory failure with hypoxia ([facility]) Heart murmur Undiagnosed cardiac murmurs Primary hypertension (CMS/HCC) Unspecified essential hypertension Morbid obesity (CMS/HCC) Morbid obesity Bipolar disorder with severe depression ([facility]) Slurred speech Other speech disturbance Bilateral lower extremity edema- Primary Primary hypertension (CMS/HCC) Unspecified essential hypertension Lower extremity edema Edema Essential (primary) hypertension (CMS/HCC) Unspecified essential hypertension Gastro-esophageal reflux disease without esophagitis Allergic rhinitis, unspecified Bilateral lower extremity edema- Primary Morbid (severe) obesity due to excess calories ([facility]) Body mass index (BMI) 45.0-49.9, adult ([facility]) Pre-diabetes Other abnormal glucose Bilateral lower extremity edema- Primary Essential (primary) hypertension ([facility]/HCC) Unspecified essential hypertension Allergic rhinitis, unspecified OSMANY (obstructive sleep apnea) Obstructive sleep apnea (adult) (pediatric) Primary hypertension ([facility]) Unspecified essential hypertension Morbid obesity ([facility]) Morbid obesity Acute cystitis without hematuria- Primary Tobacco dependence Tobacco use disorder Needs flu shot Need for prophylactic vaccination and inoculation against influenza Morbid obesity ([facility]/HCC) Morbid obesity Well woman exam with routine gynecological exam- Primary Routine gynecological examination Morbid obesity ([facility]/HCC) Morbid obesity Metabolic encephalopathy- Primary OSMANY (obstructive sleep apnea) Obstructive sleep apnea (adult) (pediatric) Morbid obesity ([facility]/HCC) Morbid obesity Bilateral lower extremity edema Tobacco dependence Tobacco use disorder Bipolar disorder with severe depression ([facility]) At risk for polypharmacy Anxiety Anxiety state, unspecified Primary hypertension ([facility]) Unspecified essential hypertension Right bundle branch block (RBBB) determined by electrocardiography Primary hypertension ([facility])- Primary Unspecified essential hypertension Chronic kidney disease, stage 3a ([facility]) ([facility]) Morbid (severe) obesity due to excess calories ([facility]) Body mass index (BMI) 45.0-49.9, adult ([facility]) OSMANY (obstructive sleep apnea) Obstructive sleep apnea (adult) (pediatric) Hemiparesis, right ([facility]) Unspecified hemiplegia affecting unspecified side Gastroesophageal reflux disease, unspecified whether esophagitis present Metabolic encephalopathy Essential (primary) hypertension ([facility]) Unspecified essential hypertension Allergic rhinitis, unspecified Gastro-esophageal reflux disease without esophagitis Bilateral lower extremity edema 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 ([facility])- Primary OSMANY (obstructive sleep apnea) Obstructive [...] Edema Pre-diabetes Other abnormal glucose Morbid obesity ([facility]/HCC) Morbid obesity Yeast infection of the skin Candidiasis of skin and nails Tobacco dependence Tobacco use disorder Mood disorder ([facility]/HCC) Unspecified episodic mood disorder Primary hypertension ([facility]) Unspecified essential hypertension Left hip pain Pain in joint, pelvic region and thigh Open wound of anterior abdominal wall, initial encounter Primary hypertension ([facility]/HCC)- Primary Unspecified essential hypertension Yeast infection of the skin Candidiasis of skin and nails Morbid obesity ([facility]/HCC) Morbid obesity Primary hypertension ([facility]/HCC)- Primary Unspecified essential hypertension Allergic rhinitis, unspecified Acute cough Morbid obesity ([facility]) Morbid obesity Former cigarette smoker Personal history of tobacco use, presenting hazards to health Toxic metabolic encephalopathy- Primary Hemiparesis, right ([facility]) Unspecified hemiplegia affecting unspecified side Acute respiratory failure with hypoxia ([facility] Heart murmur Undiagnosed cardiac murmurs Primary hypertension ([facility] Unspecified essential hypertension Morbid obesity ([facility]) Morbid obesity Bipolar disorder with severe depression ([facility]) Slurred speech Other speech disturbance Bilateral lower extremity edema- Primary Primary hypertension ([facility]) Unspecified essential hypertension Lower extremity edema Edema Essential (primary) hypertension ([facility]) Unspecified essential hypertension Gastro-esophageal reflux disease without esophagitis Allergic rhinitis, unspecified Bilateral lower extremity edema- Primary Morbid (severe) obesity due to excess calories ([facility]) Body mass index (BMI) 45.0-49.9, adult ([facility]) Pre-diabetes Other abnormal glucose Bilateral lower extremity edema- Primary Essential (primary) hypertension ([facility]) Unspecified essential hypertension Allergic rhinitis, unspecified OSMANY (obstructive sleep apnea) Obstructive sleep apnea (adult) (pediatric) Primary hypertension ([facility]) Unspecified essential hypertension Morbid obesity ([facility]) Morbid obesity Acute cystitis without hematuria- Primary Tobacco dependence Tobacco use disorder Needs flu shot Need for prophylactic vaccination and inoculation against influenza Morbid obesity ([facility]/HCC) Morbid obesity Well woman exam with routine gynecological exam- Primary Routine gynecological examination Morbid obesity ([facility]/HCC) Morbid obesity Metabolic encephalopathy- Primary OSMANY (obstructive sleep apnea) Obstructive sleep apnea (adult) (pediatric) Morbid obesity ([facility]) Morbid obesity Bilateral lower extremity edema Tobacco dependence Tobacco use disorder Bipolar disorder with severe depression ([facility]) At risk for polypharmacy Anxiety Anxiety state, unspecified Primary hypertension ([facility]) Unspecified essential hypertension Right bundle branch block (RBBB) determined by electrocardiography Primary hypertension ([facility])- Primary Unspecified essential hypertension Chronic kidney [...] legs syndrome (RLS) documented in this encounter [facility] HealthcareEvaluation note* Diagnosis Encounter for annual [...] (CMS/HCC) Body mass index (BMI) 45.0-49.9, adult ([facility]) Pre-diabetes Other abnormal glucose Bilateral lower extremity edema- Primary Essential (primary) hypertension ([facility]) Unspecified essential hypertension Allergic rhinitis, unspecified OSMANY (obstructive sleep apnea) Obstructive sleep apnea (adult) (pediatric) Primary hypertension ([facility]) Unspecified essential hypertension Morbid obesity ([facility]) Morbid obesity Acute cystitis without hematuria- Primary Tobacco dependence Tobacco use disorder Needs flu shot Need for prophylactic vaccination and inoculation against influenza Morbid obesity ([facility]) Morbid obesity Well woman exam with routine gynecological exam- Primary Routine gynecological examination Morbid obesity ([facility]) Morbid obesity Metabolic encephalopathy- Primary OSMANY (obstructive sleep apnea) Obstructive sleep apnea (adult) (pediatric) Morbid obesity ([facility]) Morbid obesity Bilateral lower extremity edema Tobacco dependence Tobacco use disorder Bipolar disorder with severe depression ([facility]) At risk for polypharmacy Anxiety Anxiety state, unspecified Primary hypertension ([facility] Unspecified essential hypertension Right bundle branch block (RBBB) determined by electrocardiography Primary hypertension ([facility])- Primary Unspecified essential hypertension Chronic kidney disease, stage 3a (HCC) ([facility]) Morbid (severe) obesity due to excess calories ([facility]) Body mass index (BMI) 45.0-49.9, adult ([facility]) OSMANY (obstructive sleep apnea) Obstructive sleep apnea (adult) (pediatric) Hemiparesis, right ([facility]) Unspecified hemiplegia affecting unspecified side Gastroesophageal reflux disease, unspecified whether esophagitis present Metabolic encephalopathy Essential (primary) hypertension ([facility]) Unspecified essential hypertension Allergic rhinitis, unspecified Gastro-esophageal reflux disease without esophagitis Bilateral lower extremity edema URI, acute- Primary Acute upper respiratory infections of unspecified site documented in this encounter [facility] HealthcareEvaluation note* Diagnosis Encounter for annual wellness visit (AWV) in Medicare patient- Primary OSMANY (obstructive sleep apnea) Obstructive sleep apnea (adult) (pediatric) Chronic pain disorder Chronic pain syndrome Gastroesophageal reflux disease, unspecified whether esophagitis present Overactive bladder Hypertonicity of bladder Lower extremity edema Edema Pre-diabetes Other abnormal glucose Morbid obesity ([facility] SYSTEM/[facility]) Morbid obesity Yeast infection of the skin Candidiasis of skin and nails Tobacco dependence Tobacco use disorder Mood disorder ([facility]) Unspecified episodic mood disorder Primary hypertension ([facility]) Unspecified essential hypertension Left hip pain [...] health Toxic metabolic encephalopathy- Primary Hemiparesis, right (CMS/[facility]) Unspecified hemiplegia affecting unspecified side Acute respiratory failure with hypoxia (CMS/[facility]) Heart murmur Undiagnosed cardiac murmurs Primary hypertension (CMS/HCC) Unspecified essential hypertension Morbid obesity (CMS/HCC) Morbid obesity Bipolar disorder with severe depression (CMS/[facility]) Slurred speech Other speech disturbance Bilateral lower extremity edema- Primary Primary hypertension (CMS/HCC) Unspecified essential hypertension Lower extremity edema Edema Essential (primary) hypertension (CMS/HCC) Unspecified essential hypertension Gastro-esophageal reflux disease without esophagitis Allergic rhinitis, unspecified Bilateral lower extremity edema- Primary Morbid (severe) obesity due to excess calories ([facility]) Body mass index (BMI) 45.0-49.9, adult ([facility]) Pre-diabetes Other abnormal glucose Bilateral lower extremity edema- Primary Essential (primary) hypertension (CMS/HCC) Unspecified essential hypertension Allergic rhinitis, unspecified OSMANY (obstructive sleep apnea) Obstructive sleep apnea (adult) (pediatric) Primary hypertension ([facility]/HCC) Unspecified essential hypertension Morbid obesity ([facility]) Morbid obesity Acute cystitis without hematuria- Primary Tobacco dependence Tobacco use disorder Needs flu shot Need for prophylactic vaccination and inoculation against influenza Morbid obesity (CMS/HCC) Morbid obesity Well woman exam with routine gynecological exam- Primary Routine gynecological examination Morbid obesity (CMS/HCC) Morbid obesity Metabolic encephalopathy- Primary OSMANY (obstructive sleep apnea) Obstructive sleep apnea (adult) (pediatric) Morbid obesity ([facility]/HCC) Morbid obesity Bilateral lower extremity edema Tobacco dependence Tobacco use disorder Bipolar disorder with severe depression ([facility]) At risk for polypharmacy Anxiety Anxiety state, unspecified Primary hypertension ([facility]/HCC) Unspecified essential hypertension Right bundle branch block (RBBB) determined by electrocardiography Primary hypertension (CMS/HCC)- Primary Unspecified essential hypertension Chronic kidney disease, stage 3a (HCC) ([facility]) Morbid (severe) obesity due to excess calories ([facility]) Body mass index (BMI) 45.0-49.9, adult ([facility]/HCC) OSMANY (obstructive sleep apnea) Obstructive sleep apnea [...] (CMS/HCC) Concentration deficit documented in this encounter [facility] HealthcareEvaluation note* Diagnosis Encounter for annual [...] Tobacco dependence Tobacco use disorder Mood disorder (CMS/[facility]) Unspecified episodic mood disorder Primary hypertension ([facility]/HCC) Unspecified essential hypertension Left hip pain Pain in joint, pelvic region and thigh Open wound of anterior abdominal wall, initial encounter Primary hypertension ([facility]/HCC)- Primary Unspecified essential hypertension Yeast infection of the skin Candidiasis of skin and nails Morbid obesity (CMS/HCC) Morbid obesity Primary hypertension ([facility]/HCC)- Primary Unspecified essential hypertension Allergic rhinitis, unspecified Acute cough Morbid obesity (CMS/HCC) Morbid obesity Former cigarette smoker Personal history of tobacco use, presenting hazards to health Toxic metabolic encephalopathy- Primary Hemiparesis, right (CMS/[facility]) Unspecified hemiplegia affecting unspecified side Acute respiratory failure with hypoxia (CMS/[facility]) Heart murmur Undiagnosed cardiac murmurs Primary hypertension (CMS/HCC) Unspecified essential hypertension Morbid obesity (CMS/HCC) Morbid obesity Bipolar disorder with severe depression (CMS/[facility]) Slurred speech Other speech disturbance Bilateral lower extremity edema- Primary Primary hypertension (CMS/HCC) Unspecified essential hypertension Lower extremity edema Edema Essential (primary) hypertension (CMS/HCC) Unspecified essential hypertension Gastro-esophageal reflux disease without esophagitis Allergic rhinitis, unspecified Bilateral lower extremity edema- Primary Morbid (severe) obesity due to excess calories ([facility]) Body mass index (BMI) 45.0-49.9, adult ([facility]) Pre-diabetes Other abnormal glucose Bilateral lower extremity edema- Primary Essential (primary) hypertension ([facility]) Unspecified essential hypertension Allergic rhinitis, unspecified OSMANY (obstructive sleep apnea) Obstructive sleep apnea (adult) (pediatric) Primary hypertension ([facility]) Unspecified essential hypertension Morbid obesity ([facility]) Morbid obesity Acute cystitis without hematuria- Primary Tobacco dependence Tobacco use disorder Needs flu shot Need for prophylactic vaccination and inoculation against influenza Morbid obesity ([facility]) Morbid obesity Well woman exam with routine gynecological exam- Primary Routine gynecological examination Morbid obesity ([facility]) Morbid obesity Metabolic encephalopathy- Primary OSMANY (obstructive sleep apnea) Obstructive sleep apnea (adult) (pediatric) Morbid obesity ([facility]) Morbid obesity Bilateral lower extremity edema Tobacco dependence Tobacco use disorder Bipolar disorder with severe depression ([facility]) At risk for polypharmacy Anxiety Anxiety state, unspecified Primary hypertension ([facility]) Unspecified essential hypertension Right bundle branch block (RBBB) determined by electrocardiography Primary hypertension ([facility])- Primary Unspecified essential hypertension Chronic kidney disease, stage 3a (HCC) ([facility]) Morbid (severe) obesity due to excess calories ([facility]) Body mass index (BMI) 45.0-49.9, adult ([facility]) OSMANY (obstructive sleep apnea) Obstructive sleep apnea (adult) (pediatric) Hemiparesis, right ([facility]) Unspecified hemiplegia affecting unspecified side Gastroesophageal reflux disease, unspecified whether esophagitis present Metabolic encephalopathy Essential (primary) hypertension ([facility]) Unspecified essential hypertension Allergic rhinitis, unspecified Gastro-esophageal reflux disease without esophagitis Bilateral lower extremity edema Primary hypertension ([facility])- Primary Unspecified essential hypertension Morbid (severe) obesity due to excess calories ([facility]) Essential (primary) hypertension ([facility]) Unspecified essential hypertension Allergic rhinitis, unspecified [...] Edema Pre-diabetes Other abnormal glucose Morbid obesity ([facility]) Morbid obesity Yeast infection of the skin Candidiasis of skin and nails Tobacco dependence Tobacco use disorder Mood disorder ([facility]/HCC) Unspecified episodic mood disorder Primary hypertension ([facility]/HCC) Unspecified essential hypertension Left hip pain Pain in joint, pelvic region and thigh Open wound of anterior abdominal wall, initial encounter Primary hypertension ([facility]/HCC)- Primary Unspecified essential hypertension Yeast infection of the skin Candidiasis of skin and nails Morbid obesity (CMS/HCC) Morbid obesity Primary hypertension (CMS/HCC)- Primary Unspecified essential hypertension Allergic rhinitis, unspecified Acute cough Morbid obesity ([facility]) Morbid obesity Former cigarette smoker Personal history of tobacco use, presenting hazards to health Toxic metabolic encephalopathy- Primary Hemiparesis, right ([facility]) Unspecified hemiplegia affecting unspecified side Acute respiratory failure with hypoxia ([facility]) Heart murmur Undiagnosed cardiac murmurs Primary hypertension ([facility] Unspecified essential hypertension Morbid obesity ([facility]) Morbid obesity Bipolar disorder with severe depression ([facility]) Slurred speech Other speech disturbance Bilateral lower extremity edema- Primary Primary hypertension ([facility]) Unspecified essential hypertension Lower extremity edema Edema Essential (primary) hypertension ([facility]) Unspecified essential hypertension Gastro-esophageal reflux disease without esophagitis Allergic rhinitis, unspecified Bilateral lower extremity edema- Primary Morbid (severe) obesity due to excess calories ([facility]) Body mass index (BMI) 45.0-49.9, adult ([facility]) Pre-diabetes Other abnormal glucose Bilateral lower extremity edema- Primary Essential (primary) hypertension ([facility]/HCC) Unspecified essential hypertension Allergic rhinitis, unspecified OSMANY (obstructive sleep apnea) Obstructive sleep apnea (adult) (pediatric) Primary hypertension ([facility]) Unspecified essential hypertension Morbid obesity ([facility]) Morbid obesity Well woman exam with routine gynecological exam- Primary Routine gynecological examination Morbid obesity ([facility]/HCC) Morbid obesity Metabolic encephalopathy- Primary OSMANY (obstructive sleep apnea) Obstructive sleep apnea (adult) (pediatric) Morbid obesity ([facility]/HCC) Morbid obesity Bilateral lower extremity edema Tobacco dependence Tobacco use disorder Bipolar disorder with severe depression ([facility]) At risk for polypharmacy Anxiety Anxiety state, unspecified Primary hypertension ([facility]/HCC) Unspecified essential hypertension Right bundle branch block (RBBB) determined by electrocardiography Primary hypertension ([facility]/HCC)- Primary Unspecified essential hypertension Chronic kidney disease, stage 3a (HCC) ([facility]) Morbid (severe) obesity due to excess [...] hazards to health documented in this encounter [facility] HealthcareEvaluation note* Diagnosis Encounter for annual [...] Morbid (severe) obesity due to excess calories ([facility]) Body mass index (BMI) 45.0-49.9, adult ([facility]) Pre-diabetes Other abnormal glucose Bilateral lower extremity edema- Primary Essential (primary) hypertension Unspecified essential hypertension Allergic rhinitis, unspecified OSMANY (obstructive sleep apnea) Obstructive sleep apnea (adult) (pediatric) Primary hypertension Unspecified essential hypertension Morbid obesity ([facility]) Morbid obesity Well woman exam with routine gynecological exam- Primary Routine gynecological examination Morbid obesity ([facility]) Morbid obesity Metabolic encephalopathy- Primary OSMANY (obstructive sleep apnea) Obstructive sleep apnea (adult) (pediatric) Morbid obesity ([facility]) Morbid obesity Bilateral lower extremity edema Tobacco dependence Tobacco use disorder Bipolar disorder with severe depression ([facility]) At risk for polypharmacy Anxiety Anxiety state, unspecified Primary hypertension Unspecified essential hypertension Right bundle branch block (RBBB) determined by electrocardiography Primary hypertension- Primary Unspecified essential hypertension Chronic kidney disease, stage 3a ([facility]) Morbid (severe) obesity due to excess calories ([facility]) Body mass index (BMI) 45.0-49.9, adult ([facility]) OSMANY (obstructive sleep apnea) Obstructive sleep apnea (adult) (pediatric) Hemiparesis, right ([facility]) Unspecified hemiplegia affecting unspecified side Gastroesophageal reflux disease, unspecified whether esophagitis present Metabolic encephalopathy Essential (primary) hypertension Unspecified essential hypertension Allergic rhinitis, unspecified Gastro-esophageal reflux disease without esophagitis Bilateral lower extremity edema Primary hypertension- Primary Unspecified essential hypertension Morbid (severe) obesity due to excess calories ([facility]) Essential (primary) hypertension Unspecified essential hypertension Allergic rhinitis, unspecified Gastro-esophageal reflux disease without esophagitis Bilateral lower extremity edema Bronchitis Bronchitis, not specified as acute or chronic Primary hypertension- Primary Unspecified essential hypertension Bronchitis Bronchitis, not specified as acute or chronic Bilateral lower extremity edema Morbid (severe) obesity due to excess calories ([facility]) Pre-diabetes Other abnormal [...] pathological fracture presence documented in this encounter [facility] HealthcareEvaluation note* Diagnosis Encounter for annual wellness visit (AWV) in Medicare patient- Primary OSMANY (obstructive sleep apnea) Obstructive sleep apnea (adult) (pediatric) Chronic pain disorder Chronic pain syndrome Gastroesophageal reflux disease, unspecified whether esophagitis present Overactive bladder Hypertonicity of bladder Lower extremity edema Edema Pre-diabetes Other abnormal glucose Morbid obesity ([facility]) Morbid obesity Yeast infection of the skin [...] Candidiasis of skin and nails Morbid obesity ([facility]) Morbid obesity Primary hypertension- Primary Unspecified essential hypertension Allergic rhinitis, unspecified Acute cough Morbid obesity ([facility]) Morbid obesity Former cigarette smoker Personal history of tobacco use, presenting hazards to health Toxic metabolic encephalopathy- Primary Hemiparesis, right (HCC) Unspecified hemiplegia affecting unspecified side Acute respiratory failure with hypoxia ([facility]) Heart murmur Undiagnosed cardiac murmurs Primary hypertension Unspecified essential hypertension Morbid obesity ([facility]) Morbid obesity Bipolar disorder with severe depression ([facility]) Slurred speech Other speech disturbance Bilateral lower extremity edema- Primary Primary hypertension Unspecified essential hypertension Lower extremity edema Edema Essential (primary) hypertension Unspecified essential hypertension Gastro-esophageal reflux disease without esophagitis Allergic rhinitis, unspecified Bilateral lower extremity edema- Primary Morbid (severe) obesity due to excess calories ([facility]) Body mass index (BMI) 45.0-49.9, adult ([facility]) Pre-diabetes Other abnormal glucose Bilateral lower extremity edema- Primary Essential (primary) hypertension Unspecified essential hypertension Allergic rhinitis, unspecified OSMANY (obstructive sleep apnea) Obstructive sleep apnea (adult) (pediatric) Primary hypertension Unspecified essential hypertension Morbid obesity ([facility]) Morbid obesity Well woman exam with routine gynecological exam- Primary Routine gynecological examination Morbid obesity ([facility]) Morbid obesity Metabolic encephalopathy- Primary OSMANY (obstructive sleep apnea) Obstructive sleep apnea (adult) (pediatric) Morbid obesity ([facility]) Morbid obesity Bilateral lower extremity edema Tobacco dependence Tobacco use disorder Bipolar disorder with severe depression (HCC) At risk for polypharmacy Anxiety Anxiety state, unspecified Primary hypertension Unspecified essential hypertension Right bundle branch block (RBBB) determined by electrocardiography Primary hypertension- Primary Unspecified essential hypertension Chronic kidney disease, stage 3a ([facility]) Morbid (severe) obesity due to excess calories ([facility]) Body mass index (BMI) 45.0-49.9, adult ([facility]) OSMANY (obstructive sleep apnea) Obstructive sleep apnea (adult) (pediatric) Hemiparesis, right ([facility]) Unspecified hemiplegia affecting unspecified side Gastroesophageal reflux disease, unspecified whether esophagitis present Metabolic encephalopathy Essential (primary) hypertension Unspecified essential hypertension Allergic rhinitis, unspecified Gastro-esophageal reflux disease without esophagitis Bilateral lower extremity edema Primary hypertension- Primary Unspecified essential hypertension Morbid (severe) obesity due to excess calories ([facility]) Essential (primary) hypertension Unspecified essential hypertension Allergic rhinitis, unspecified Gastro-esophageal reflux disease without esophagitis Bilateral lower extremity edema Bronchitis Bronchitis, not specified as acute or chronic Primary hypertension- Primary Unspecified essential hypertension Bronchitis Bronchitis, not specified as acute or chronic Bilateral lower extremity edema Morbid (severe) obesity due to excess calories ([facility]) Pre-diabetes Other abnormal [...] Primary osteoarthritis of right knee Morbid obesity ([facility]) Morbid obesity documented in this encounter [facility] HealthcareEvaluation note* Diagnosis Encounter for annual wellness visit (AWV) in Medicare patient- Primary OSMANY (obstructive sleep apnea) Obstructive sleep apnea (adult) (pediatric) Chronic pain disorder Chronic pain syndrome Gastroesophageal reflux disease, unspecified whether esophagitis present Overactive bladder Hypertonicity of bladder Lower extremity edema Edema Pre-diabetes Other abnormal glucose Morbid obesity ([facility]) Morbid obesity Yeast infection of the skin [...] Candidiasis of skin and nails Morbid obesity ([facility]) Morbid obesity Primary hypertension- Primary Unspecified essential hypertension Allergic rhinitis, unspecified Acute cough Morbid obesity ([facility]) Morbid obesity Former cigarette smoker Personal history of tobacco use, presenting hazards to health Toxic metabolic encephalopathy- Primary Hemiparesis, right (HCC) Unspecified hemiplegia affecting unspecified side Acute respiratory failure with hypoxia ([facility]) Heart murmur Undiagnosed cardiac murmurs Primary hypertension Unspecified essential hypertension Morbid obesity ([facility]) Morbid obesity Bipolar disorder with severe depression ([facility]) Slurred speech Other speech disturbance Bilateral lower extremity edema- Primary Primary hypertension Unspecified essential hypertension Lower extremity edema Edema Essential (primary) hypertension Unspecified essential hypertension Gastro-esophageal reflux disease without esophagitis Allergic rhinitis, unspecified Bilateral lower extremity edema- Primary Morbid (severe) obesity due to excess calories ([facility]) Body mass index (BMI) 45.0-49.9, adult ([facility]) Pre-diabetes Other abnormal glucose Bilateral lower extremity edema- Primary Essential (primary) hypertension Unspecified essential hypertension Allergic rhinitis, unspecified OSMANY (obstructive sleep apnea) Obstructive sleep apnea (adult) (pediatric) Primary hypertension Unspecified essential hypertension Morbid obesity ([facility]) Morbid obesity Well woman exam with routine gynecological exam- Primary Routine gynecological examination Morbid obesity ([facility]) Morbid obesity Metabolic encephalopathy- Primary OSMANY (obstructive sleep apnea) Obstructive sleep apnea (adult) (pediatric) Morbid obesity ([facility]) Morbid obesity Bilateral lower extremity edema Tobacco dependence Tobacco use disorder Bipolar disorder with severe depression ([facility]) At risk for polypharmacy Anxiety Anxiety state, unspecified Primary hypertension Unspecified essential hypertension Right bundle branch block (RBBB) determined by electrocardiography Primary hypertension- Primary Unspecified essential hypertension Chronic kidney disease, stage 3a ([facility]) Morbid (severe) obesity due to excess calories ([facility]) Body mass index (BMI) 45.0-49.9, adult ([facility]) OSMANY (obstructive sleep apnea) Obstructive sleep apnea (adult) (pediatric) Hemiparesis, right (HCC) Unspecified hemiplegia affecting unspecified side Gastroesophageal reflux disease, unspecified whether esophagitis present Metabolic encephalopathy Essential (primary) hypertension Unspecified essential hypertension Allergic rhinitis, unspecified Gastro-esophageal reflux disease without esophagitis Bilateral lower extremity edema Primary hypertension- Primary Unspecified essential hypertension Morbid (severe) obesity due to excess calories ([facility]) Essential (primary) hypertension Unspecified essential hypertension Allergic rhinitis, unspecified Gastro-esophageal reflux disease without esophagitis Bilateral lower extremity edema Bronchitis Bronchitis, not specified as acute or chronic Primary hypertension- Primary Unspecified essential hypertension Bronchitis Bronchitis, not specified as acute or chronic Bilateral lower extremity edema Morbid (severe) obesity due to excess calories ([facility]) Pre-diabetes Other abnormal glucose Allergic rhinitis, [...] Morbid (severe) obesity due to excess calories ([facility]) Primary hypertension Unspecified essential hypertension Anemia, unspecified type Bilateral lower extremity edema Osteoporosis, unspecified osteoporosis type, unspecified pathological fracture presence Chronic kidney disease, stage 3a ([facility]) Pre-diabetes Other abnormal glucose documented in this encounter [facility]* Diagnosis Encounter for annual wellness visit (AWV) in Medicare patient- Primary OSMANY (obstructive sleep apnea) Obstructive sleep apnea (adult) (pediatric) Chronic pain disorder Chronic pain syndrome Gastroesophageal reflux disease, unspecified whether esophagitis present Overactive bladder Hypertonicity of bladder Lower extremity edema Edema Pre-diabetes Other abnormal glucose Morbid obesity ([facility]) Morbid obesity Yeast infection of the skin [...] Candidiasis of skin and nails Morbid obesity ([facility]) Morbid obesity Primary hypertension- Primary Unspecified essential hypertension Allergic rhinitis, unspecified Acute cough Morbid obesity ([facility]) Morbid obesity Former cigarette smoker Personal history of tobacco use, presenting hazards to health Toxic metabolic encephalopathy- Primary Hemiparesis, right (HCC) Unspecified hemiplegia affecting unspecified side Acute respiratory failure with hypoxia (HCC) Heart murmur Undiagnosed cardiac murmurs Primary hypertension Unspecified essential hypertension Morbid obesity ([facility]) Morbid obesity Bipolar disorder with severe depression ([facility]) Slurred speech Other speech disturbance Bilateral lower extremity edema- Primary Primary hypertension Unspecified essential hypertension Lower extremity edema Edema Essential (primary) hypertension Unspecified essential hypertension Gastro-esophageal reflux disease without esophagitis Allergic rhinitis, unspecified Bilateral lower extremity edema- Primary Morbid (severe) obesity due to excess calories ([facility]) Body mass index (BMI) 45.0-49.9, adult ([facility]) Pre-diabetes Other abnormal glucose Bilateral lower extremity edema- Primary Essential (primary) hypertension Unspecified essential hypertension Allergic rhinitis, unspecified OSMANY (obstructive sleep apnea) Obstructive sleep apnea (adult) (pediatric) Primary hypertension Unspecified essential hypertension Morbid obesity ([facility]) Morbid obesity Well woman exam with routine gynecological exam- Primary Routine gynecological examination Morbid obesity ([facility]) Morbid obesity Metabolic encephalopathy- Primary OSMANY (obstructive sleep apnea) Obstructive sleep apnea (adult) (pediatric) Morbid obesity ([facility]) Morbid obesity Bilateral lower extremity edema Tobacco dependence Tobacco use disorder Bipolar disorder with severe depression ([facility]) At risk for polypharmacy Anxiety Anxiety state, unspecified Primary hypertension Unspecified essential hypertension Right bundle branch block (RBBB) determined by electrocardiography Primary hypertension- Primary Unspecified essential hypertension Chronic kidney disease, stage 3a ([facility]) Morbid (severe) obesity due to excess calories ([facility]) Body mass index (BMI) 45.0-49.9, adult ([facility]) OSMANY (obstructive sleep apnea) Obstructive sleep apnea (adult) (pediatric) Hemiparesis, right (HCC) Unspecified hemiplegia affecting unspecified side Gastroesophageal reflux disease, unspecified whether esophagitis present Metabolic encephalopathy Essential (primary) hypertension Unspecified essential hypertension Allergic rhinitis, unspecified Gastro-esophageal reflux disease without esophagitis Bilateral lower extremity edema Primary hypertension- Primary Unspecified essential hypertension Morbid (severe) obesity due to excess calories ([facility]) Essential (primary) hypertension Unspecified essential hypertension Allergic rhinitis, unspecified Gastro-esophageal reflux disease without esophagitis Bilateral lower extremity edema Bronchitis Bronchitis, not specified as acute or chronic Primary hypertension- Primary Unspecified essential hypertension Bronchitis Bronchitis, not specified as acute or chronic Bilateral lower extremity edema Morbid (severe) obesity due to excess calories ([facility]) Pre-diabetes Other abnormal [...] Morbid (severe) obesity due to excess calories ([facility]) Primary hypertension Unspecified essential hypertension Anemia, unspecified type Bilateral lower extremity edema Osteoporosis, unspecified osteoporosis type, unspecified pathological fracture presence Chronic kidney disease, stage 3a ([facility]) Pre-diabetes Other abnormal glucose Acute medial meniscus tear of right knee, initial encounter- Primary Chronic pain of right knee Morbid obesity ([facility]) Morbid obesity Primary osteoarthritis of right knee Preoperative testing Unspecified pre-operative examination documented in this encounter [facility] physical note Author Jace Graham [facility] March 23, 2023 11:21am Note Date/Time March 23, 2023 11:21am [facility] [address] [place] [address] Gastroenterology H&P Signed Patient: Michelle Be MR#: [id number] : 1960 Acct:[id number] Age/Sex: 62 / F Adm Date: 3 Loc: Room: Type: [facility] Attending Dr: Jace Graham MD Copies [...] signed by Jace Graham MD> 03/23/23 [facility] Work Phone: History general Narrative [...] see above surg Hospitalization History stroke 2018 [facility] Other Hospital Discharge instructions Additional Instructions Regular Diet [facility]charge instructions Additional [...] years. -Follow up with PCP. -Office number [phone][facility] Work Phone: Reason for visit Narrative* Consultation (Routine) - Closed Specialty Diagnoses / Procedures Referred By Contac t Referred To Contact Neuropsychology Diagnoses Memory change Procedures [place] OFFICE/OUTPATIENT [facility] Juany Leggett PA [address] [place] [address] Phone: tel: fax: David Foster, PhD [address] [address] Phone: tel: fax: Referral ID Status Reason Start Date Expiration Date V isits Requested Visits Authorized [id number] Closed Specialty Services Required 03/07/2024 09/03/2024 1 [...] Documents on File Type Date Recorded Patient Cyber Incident Responder Expl anation Power of Hot Oiler 03/10/2024 3:12 PM POA Documents on File Type Date Recorded Patient Cyber Incident Responder Expl anation Power of Hot Oiler 03/10/2024 3:12 PM POA Documents on File Type Date Recorded Patient Cyber Incident Responder Expl anation Power of Hot Oiler 03/16/2024 9:42 AM darian r of tax associate attorney Power of Hot Oiler 03/10/2024 3:12 PM POA Documents on File Type Date Recorded Patient Cyber Incident Responder Expl anation Power of Hot Oiler 03/16/2024 9:42 AM darian r of tax associate attorney Power of Hot Oiler 03/10/2024 3:12 PM POA Chief Complaint and Reason for Visit Chief Complaint Bipolar Depression Reason for Visit Allergies Bipolar 2 disorder Hypertension Morbid obesity with BMI of 45.0-49.9, adult OSMANY (obstructive sleep apnea) Restless legs syndrome Chief Complaint Screening Additional Source Comments INFORMATION SOURCE (unrecogn ized section and content) DATE CREATED AUTHOR 02/18/2019 [facility] DATE CREATED AUTHOR AUTHOR'S ORGANIZ ATION 11/15/2021 [facility] DATE CREATED AUTHOR AUTHOR'S ORGANIZ ATION 08/16/2022 [facility] DATE CREATED AUTHOR AUTHOR'S ORGANIZ ATION 10/09/2024 [facility] DATE CREATED AUTHOR AUTHOR'S ORGANIZ ATION 10/23/2024 [facility] DATE CREATED AUTHOR AUTHOR'S ORGANIZ ATION 11/11/2024 [facility] DATE CREATED AUTHOR AUTHOR'S ORGANIZ ATION 11/21/2024 [facility] EPIC Care Teams (unrecognized sec tion [...] MD Other Provider Active Adelaida Marsh , ARMATURE WINDER REPAIR HELPER Other Provider Active Jessica Murillo , DO [...] MD Other Provider Active Joellen Le , [facility] Other Provider Active Severo Yancey MD Other Provider Active Rao Webber MD Other Provider Active Yuan Shi MD Other Provider Active Delroy Ramirez MD Other Provider Active Berta Comer , DO Other Provider Active Negrito Ruiz , DO Other Provider Active Lacho Singh , DO Other Provider Active Rachana Hobson , ARMATURE WINDER REPAIR HELPER Other Provider Active Rob Lake , DO Other Provider Active Jeff Alvarez MD Other Provider Active Urmila Rinaldi ARMATURE WINDER REPAIR HELPER Other Provider Active Bina Mayberry , ARMATURE WINDER REPAIR HELPER Other Provider Active Mir Bradford MD Other Provider Active Te Da Silva MD Other Provider Active Debra Landaverde , JOHANN Other Provider Active Team Status: Inactive Member Role Status Dates Adelaida Carrion Primary Care Provider Active Jace Graham MD Attending Provider Active Optical Coating Technician Relationship Specialty Start Date End Date José Luis Roberts MD [address] [place] [address] PCP - General Family Medicine 05/18/23 Adelaida Carrion NP [address] [place] [address] Referring Physician Nurse Practitioner 10/14/22 Optical Coating Technician Relationship Specialty Start Date End Date José Luis Roberts MD [address] [place] [address] PCP - General Family Medicine 05/18/23 Adelaida Carrion NP [address] [place] [address] Referring Physician Nurse Practitioner 10/14/22 Optical Coating Technician Relationship Specialty Start Date End Date José Luis Roberts MD [address] [place] [address] PCP - General Family Medicine 05/18/23 Adelaida Carrion NP [address] [place] [address] Referring Physician Nurse Practitioner 10/14/22 Optical Coating Technician Relationship Specialty Start Date End Date José Luis Roberts MD [address] [place] [address] PCP - General Family Medicine 05/18/23 Adelaida Carrion NP Referring Physician Nurse Practitioner 10/14/22 Miriam Suarez DO [address] [place] [address] Referring Physician Neurology 06/29/23 [place] De [place] LPN Licensed Practical Nurse Family Medicine 12/18/23 Optical Coating Technician Relationship Specialty Start Date End Date José Luis Roberts MD [address] [place] [address] PCP - General Family Medicine 05/18/23 Adelaida Carrion, BRIANA Referring Physician Nurse Practitioner 10/14/22 Miriam Suarez DO [address] [place] [address] Referring Physician Neurology 06/29/23 [place] LPN Licensed Practical Nurse Family Medicine 12/18/23 Optical Coating Technician Relationship Specialty Start Date End Date Unallocated, Geeta Sierra MD [address] [place] [address] PCP - General Family Medicine 01/27/24 Miriam Suarez DO [address] [place] [address] Referring Physician Neurology 06/29/23 [place] LPN Licensed Practical Nurse Family Medicine 12/18/23 Adelaida Carrion, BRIANA [address] [place] [address] Nurse Practitioner Family Medicine 01/27/24 Optical Coating Technician Relationship Specialty Start Date End Date Unallocated, Geeta Sierra MD [address] [facility] [place] [address] PCP - General Family Medicine 01/27/24 Miriam Suarez DO [address] [place] [address] Referring Physician Neurology 06/29/23 [place] LPN Licensed Practical Nurse Family Medicine 12/18/23 Adelaida Carrion NP [address] [place] [address] Nurse Practitioner Family Medicine 01/27/24 Optical Coating Technician Relationship Specialty Start Date End Date José Luis Roberts MD [address] [place] [address] PCP - General Family Medicine 02/02/24 Miriam Suarez DO [address] [place], [place] [id number] Referring Physician Neurology 06/29/23 [place] LPN Licensed Practical Nurse Family Medicine 12/18/23 Adelaida Carrion NP [address] [place] [address] Nurse Practitioner Family Medicine 01/27/24 Optical Coating Technician Relationship Specialty Start Date End Date José Luis Roberts MD [address] [place] [address] PCP - General Family Medicine 02/02/24 Miriam Suarez DO [address] [place] [address] Referring Physician Neurology 06/29/23 Adelaida Carrion NP [address] [place] [address] Nurse Practitioner Family Medicine 01/27/24 Bong Rosado MA Family Medicine 02/12/24 Optical Coating Technician Relationship Specialty Start Date End Date José Luis Roberts MD [address] [place] [address] PCP - General Family Medicine 02/02/24 Miriam Suarez DO [address] [place] [address] Referring Physician Neurology 06/29/23 Adelaida Carrion, BRIANA [address] [place] [address] Nurse Practitioner Family Medicine 01/27/24 Bong Rosado MA Family Medicine 02/12/24 Optical Coating Technician Relationship Specialty Start Date End Date José Luis Roberts MD [address] [place] [address] PCP - General Family Medicine 02/02/24 Miriam Suarez DO [address] [place] [address] Referring Physician Neurology 06/29/23 Adelaida Carrion, BRIANA [address] [place] [address] Nurse Practitioner Family Medicine 01/27/24 Bong Rosado MA Family Medicine 02/12/24 Optical Coating Technician Relationship Specialty Start Date End Date José Luis Roberts MD [address] [place] [address] PCP - General Family Medicine 02/02/24 Miriam Suarez DO [address] [place], [place] [address] Referring Physician Neurology 06/29/23 Adelaida Carrion NP [address] [place] [address] Nurse Practitioner Family Medicine 01/27/24 Bong Rosado MA Family Medicine 02/12/24 Optical Coating Technician Relationship Specialty Start Date End Date José Luis Roberts MD [address] [place] [address] PCP - General Family Medicine 02/02/24 Miriam Suarez DO [address] [place], [place] [address] Referring Physician Neurology 06/29/23 Adelaida Carrion NP [address] [place] [address] Nurse Practitioner Family Medicine 01/27/24 Bong Rosado MA Family Medicine 02/12/24 Optical Coating Technician Relationship Specialty Start Date End Date José Luis Roberts MD [address] [place] [address] PCP - General Family Medicine 02/02/24 Miriam Suarez DO [address] [place], [place] [address] Referring Physician Neurology 06/29/23 Adelaida Carrion NP [address] [place] [address] Nurse Practitioner Family Medicine 01/27/24 Bong Rosado MA Family Medicine 02/12/24 Optical Coating Technician Relationship Specialty Start Date End Date José Luis Roberts MD [address] [place] [address] PCP - General Family Medicine 02/02/24 Miriam Suarez DO [address] [place] [address] Referring Physician Neurology 06/29/23 Adelaida Carrion, BRIANA [address] [place] [address] Nurse Practitioner Family Medicine 01/27/24 Bong Rosado MA Family Medicine 02/12/24 Optical Coating Technician Relationship Specialty Start Date End Date José Luis Roberts MD [address] [place] [address] PCP - General Family Medicine 02/02/24 Miriam Suarez DO [address] [place] [address] Referring Physician Neurology 06/29/23 Adelaida Carrion, BRIANA [address] [place] [address] Nurse Practitioner Family Medicine 01/27/24 Bong Rosado MA Family Medicine 02/12/24 Optical Coating Technician Relationship Specialty Start Date End Date José Luis Roberts MD [address] [place] [address] PCP - General Family Medicine 02/02/24 Miriam Suarez DO [address] [place], [place] [address] Referring Physician Neurology 06/29/23 Adelaida Carrion NP [address] [place] [address] Nurse Practitioner Family Medicine 01/27/24 Bong Rosado MA Family Medicine 02/12/24 Optical Coating Technician Relationship Specialty Start Date End Date José Luis Roberts MD [address] [place] [address] PCP - General Family Medicine 02/02/24 Miriam Suarez DO [address] [place], [place] [address] Referring Physician Neurology 06/29/23 Adelaida Carrion NP [address] [place] [address] Nurse Practitioner Family Medicine 01/27/24 Bong Rosado MA Family Medicine 02/12/24 Optical Coating Technician Relationship Specialty Start Date End Date José Luis Roberts MD [address] [place] [address] PCP - General Family Medicine 02/02/24 Miriam Suarez DO [address] [place], [place] [address] Referring Physician Neurology 06/29/23 Adelaida Carrion NP [address] [place] [address] Nurse Practitioner Family Medicine 01/27/24 Bong Rosado MA Family Medicine 02/12/24 Optical Coating Technician Relationship Specialty Start Date End Date José Luis Roberts MD [address] [place] [address] PCP - General Family Medicine 05/18/23 Adelaida Carrion NP Referring Physician Nurse Practitioner 10/14/22 Miriam Suarez DO [address] [place] [address] Referring Physician Neurology 06/29/23 Mathew Parra LPN Licensed Practical Nurse Family Medicine 07/23/23 Optical Coating Technician Relationship Specialty Start Date End Date José Luis Roberts MD [address] [place] [address] PCP - General Family Medicine 05/18/23 Adelaida Carrion NP Referring Physician Nurse Practitioner 10/14/22 Miiram Suarez DO [address] [place], [place] [address] Referring Physician Neurology 06/29/23 Mathew Parra LPN Licensed Practical Nurse Family Medicine 07/23/23 Optical Coating Technician Relationship Specialty Start Date End Date José Luis Roberts MD [address] [place] [address] PCP - General Family Medicine 05/18/23 Adelaida Carrion NP Referring Physician Nurse Practitioner 10/14/22 Miriam Suarez DO [address] [place] [address] Referring Physician Neurology 06/29/23 Mathew Parra LPN Licensed Practical Nurse Family Medicine 07/23/23 Optical Coating Technician Relationship Specialty Start Date End Date José Luis Roberts MD [address] [place] [address] PCP - General Family Medicine 05/18/23 Adelaida Carrion NP Referring Physician Nurse Practitioner 10/14/22 Miriam Suarez DO [address] [place] [address] Referring Physician Neurology 06/29/23 Mathew Parra LPN Licensed Practical Nurse Family Medicine 07/23/23 Optical Coating Technician Relationship Specialty Start Date End Date José Luis Roberts MD [address] [place] [address] PCP - General Family Medicine 05/18/23 Adelaida Carrion NP Referring Physician Nurse Practitioner 10/14/22 Miriam Suarez DO [address] [place] [address] Referring Physician Neurology 06/29/23 [place] LPN Licensed Practical Nurse Family Medicine 12/18/23 Optical Coating Technician Relationship Specialty Start Date End Date José Luis Roberts MD [address] [place] [address] PCP - General Family Medicine 05/18/23 Adelaida Carrion NP Referring Physician Nurse Practitioner 10/14/22 Miriam Suarez DO [address] [place] [address] Referring Physician Neurology 06/29/23 [place] De [place] LPN Licensed Practical Nurse Family Medicine 12/18/23 Optical Coating Technician Relationship Specialty Start Date End Date José Luis Roberts MD [address] [place] [address] PCP - General Family Medicine 05/18/23 Adelaida Carrion NP Referring Physician Nurse Practitioner 10/14/22 Miriam Suarez DO [address] [place] [address] Referring Physician Neurology 06/29/23 [place] LPN Licensed Practical Nurse Family Medicine 12/18/23 Optical Coating Technician Relationship Specialty Start Date End Date José Luis Roberts MD [address] [place] [address] PCP - General Family Medicine 02/02/24 Miriam Suarez DO [address] [place] [address] Referring Physician Neurology 06/29/23 Adelaida Carrion NP [address] [place] [place] [address] Nurse Practitioner Family Medicine 01/27/24 Bong Rosado MA Family Medicine 02/12/24 Optical Coating Technician Relationship Specialty Start Date End Date José Luis Roberts MD [address] [place] [address] PCP - General Family Medicine 02/02/24 Miriam Suarez DO [address] [place] [address] Referring Physician Neurology 06/29/23 Adelaida Carrion, BRIANA [address] [place] [address] Nurse Practitioner Family Medicine 01/27/24 Bong Rosado MA Family Medicine 02/12/24 Optical Coating Technician Relationship Specialty Start Date End Date José Luis Roberts MD [address] [place] [address] PCP - General Family Medicine 02/02/24 Miriam Suarez DO [address] [place], [place] [address] Referring Physician Neurology 06/29/23 Adelaida Carrion, BRIANA [address] [place] [address] Nurse Practitioner Family Medicine 01/27/24 Bong Rosado MA Family Medicine 02/12/24 Optical Coating Technician Relationship Specialty Start Date End Date José Luis Roberts MD [address] [place] [address] PCP - General Family Medicine 02/02/24 Miriam Suarez DO [address] [place] [address] Referring Physician Neurology 06/29/23 Adelaida Carrion NP [address] [place] [address] Nurse Practitioner Family Medicine 01/27/24 Bong Rosado MA Family Medicine 02/12/24 Optical Coating Technician Relationship Specialty Start Date End Date José Luis Roberts MD [address] [place] [address] PCP - General Family Medicine 02/02/24 Miriam Suarez DO [address] [place], [place] [address] Referring Physician Neurology 06/29/23 Adelaida Carrion NP [address] [place] [address] Nurse Practitioner Family Medicine 01/27/24 Bong Rosado MA Family Medicine 02/12/24 Optical Coating Technician Relationship Specialty Start Date End Date José Luis Roberts MD [address] [place] [address] PCP - General Family Medicine 02/02/24 Miriam Suarez DO [address] [place], [place] [address] Referring Physician Neurology 06/29/23 Adelaida Carrion NP [address] [place] [address] Nurse Practitioner Family Medicine 01/27/24 Bong Rosado MA Family Medicine 02/12/24 Optical Coating Technician Relationship Specialty Start Date End Date José Luis Roberts MD [address] [place] [address] PCP - General Family Medicine 02/02/24 Miriam Suarez DO [address] [place] [address] Referring Physician Neurology 06/29/23 Adelaida Carrion NP [address] [place] [address] Nurse Practitioner Family Medicine 01/27/24 Bong Rosado MA Family Medicine 02/12/24 Juany Leggett PA [address] [place], [place] [address] Physician Control Room Agent Neurology 07/26/24 Optical Coating Technician Relationship Specialty Start Date End Date José Luis Roberts MD [address] [place] [address] PCP - General Family Medicine 02/02/24 Miriam Suarez DO [address] [place], [place] [address] Referring Physician Neurology 06/29/23 Adelaida Carrion NP [address] [place] [address] Nurse Practitioner Family Medicine 01/27/24 Bong Rosado MA Family Medicine 02/12/24 Juany Leggett PA [address] [place], [place] [address] Physician Control Room Agent Neurology 07/26/24 Optical Coating Technician Relationship Specialty Start Date End Date José Luis Roberts MD [address] [place] [address] PCP - General Family Medicine 02/02/24 Miriam Suarez DO [address] [place] [address] Referring Physician Neurology 06/29/23 Adelaida Carrion, [facility] [address] [place] [phone] Nurse Practitioner Family Medicine 01/27/24 Bong Rosado MA Family Medicine 02/12/24 Juany Leggett PA [address] [facility] [place] [address] Physician Control Room Agent Neurology 07/26/24 Optical Coating Technician Relationship Specialty Start Date End Date José Luis Roberts MD [address] [place] [phone] PCP - General Family Medicine 02/02/24 Miriam Suarez DO [address] [place] [address] Referring Physician Neurology 06/29/23 Adelaida Carrion NP [address] [place] [address] Nurse Practitioner Family Medicine 01/27/24 Bong Rosado MA Family Medicine 02/12/24 Juany Leggett PA [address] [place] [address] Physician Control Room Agent Neurology 07/26/24 Optical Coating Technician Relationship Specialty Start Date End Date José Luis Roberts MD [address] [place] [address] PCP - General Family Medicine 02/02/24 Miriam Suarez DO [address] [place] [address] Referring Physician Neurology 06/29/23 Adelaida Carrion, BRIANA [address] [place] [address] Nurse Practitioner Family Medicine 01/27/24 Bong Rosado MA Family Medicine 02/12/24 Juany Leggett PA [address] [place] [address] Physician Control Room Agent Neurology 07/26/24 Optical Coating Technician Relationship Specialty Start Date End Date José Luis Roberts MD [address] [place] [address] PCP - General Family Medicine 02/02/24 Miriam Suarez DO [address] [place] [address] Referring Physician Neurology 06/29/23 Adelaida Carrion NP [address] [place] [address] Nurse Practitioner Family Medicine 01/27/24 Bong Rosado MA Family Medicine 02/12/24 Juany Leggett PA [address] [place], [place] [address] Physician Control Room Agent Neurology 07/26/24 Optical Coating Technician Relationship Specialty Start Date End Date José Luis Roberts MD [address] [place] [address] PCP - General Family Medicine 02/02/24 Miriam Suarez DO [address] [place] [address] Referring Physician Neurology 06/29/23 Adelaida Carrion NP [address] [place] [address] Nurse Practitioner Family Medicine 01/27/24 Bong Rosado, [place] [address] [place] [address] Family Medicine 02/12/24 Juany Leggett PA [address] [place], [place] [address] Physician Control Room Agent Neurology 07/26/24 Optical Coating Technician Relationship Specialty Start Date End Date José Luis Roberts MD [address] [place] [phone] PCP - General Family Medicine 02/02/24 Miriam Saurez DO [address] [place] [place], [place] [address] Referring Physician Neurology 06/29/23 Adelaida Carrion NP [address] [place] [phone] Nurse Practitioner Family Medicine 01/27/24 Bong Rosado MA [address] [place] [address] Family Medicine 02/12/24 Juany Leggett PA [address] [place] [address] Physician Control Room Agent Neurology 07/26/24 Optical Coating Technician Relationship Specialty Start Date End Date José Luis Roberts MD [address] [place] [address] PCP - General Family Medicine 02/02/24 Miriam Suarez DO [address] [place] [address] Referring Physician Neurology 06/29/23 Adelaida Carrion NP [address] [place] [address] Nurse Practitioner Family Medicine 01/27/24 Bong Rosado MA [address] [place] [address] Family Medicine 02/12/24 Juany Leggett PA [address] [place] [address] Physician Control Room Agent Neurology 07/26/24 Optical Coating Technician Relationship Specialty Start Date End Date José Luis Roberts MD [address] [place] [address] PCP - General Family Medicine 02/02/24 Miriam Suarez DO [address] [place] [address] Referring Physician Neurology 06/29/23 Adelaida Carrion NP [address] [place] [phone] Nurse Practitioner Family Medicine 01/27/24 Bong Rosado MA [address] [place] [address] Family Medicine 02/12/24 Juany Leggett PA [address] [place], [place] [address] Physician Control Room Agent Neurology 07/26/24 Optical Coating Technician Relationship Specialty Start Date End Date José Luis Roberts MD [address] [place] [phone] PCP - General Family Medicine 02/02/24 Miriam Suarez DO [address] [place] [address] Referring Physician Neurology 06/29/23 Adelaida Carrion NP [address] [place] [address] Nurse Practitioner Family Medicine 01/27/24 Bong Rosado MA [address] [place] [address] Family Medicine 02/12/24 Juany Leggett PA [address] [place], [place] [address] Physician Control Room Agent Neurology 07/26/24 Optical Coating Technician Relationship Specialty Start Date End Date José Luis Roberts MD [address] [place] [phone] PCP - General Family Medicine 02/02/24 Miriam Suarez DO [address] [place] [address] Referring Physician Neurology 06/29/23 Adelaida Carrion NP [address] [place] [address] Nurse Practitioner Family Medicine 01/27/24 Bong Rosado MA [address] [place] [address] Family Medicine 02/12/24 Juany Leggett PA [address] [place] [address] Physician Control Room Agent Neurology 07/26/24 Optical Coating Technician Relationship Specialty Start Date End Date José Luis Roberts MD [address] [place] [address] PCP - General Family Medicine 02/02/24 Miriam Suarez DO [address] [place] [address] Referring Physician Neurology 06/29/23 Adelaida Carrion NP [address] [place] [address] Nurse Practitioner Family Medicine 01/27/24 Bong Rosado MA [address] [place] [address] Family Medicine 02/12/24 Juany Leggett PA [address] [place] [address] Physician Control Room Agent Neurology 07/26/24 Optical Coating Technician Relationship Specialty Start Date End Date José Luis Roberts MD [address] [place] [address] PCP - General Family Medicine 02/02/24 Miriam Suarez DO [address] [place] [address] Referring Physician Neurology 06/29/23 Adelaida Carrion NP [address] [place] [address] Nurse Practitioner Family Medicine 01/27/24 Bong Rosado, [place] [address] [place] [address] Family Medicine 02/12/24 Juany Leggett PA [address] [place] [address] Physician Control Room Agent Neurology 07/26/24 Optical Coating Technician Relationship Specialty Start Date End Date José Luis Roberts MD [address] [place] [phone] PCP - General Family Medicine 02/02/24 Miriam Suarez DO [address] [place] [address] Referring Physician Neurology 06/29/23 Adelaida Carrion NP [address] [place] [address] Nurse Practitioner Family Medicine 01/27/24 Bong Rosado, [place] [address] [place] [address] Family Medicine 02/12/24 Juany Leggett PA [address] [place] [address] Physician Control Room Agent Neurology 07/26/24 REASON FOR VISIT (unrecogniz ed [...] BE BASED ON THE PRIMARY CLINICAL RECORDS. [email or web address]. provides no warranty or guarantee of the accuracy or completeness of information in this document.
== END 2024-11-23 08:56 | disposition home or self-care (01) ==
LOC: MRI 08:55
PROVIDERS: PCP Nurse Practitioner; Visit Provider Nurse Practitioner
DX: Z01.818 Encounter for other preprocedural examination (principal); M48.062 Spinal stenosis, lumbar region with neurogenic claudication; M47.816 Spondylosis without myelopathy or radiculopathy, lumbar region; D64.9 Anemia, unspecified; I12.9 Hypertensive chronic kidney disease with stage 1 through stage 4 chronic kidney disease, or unspecified chronic kidney disease; R06.00 Dyspnea, unspecified; M81.0 Age-related osteoporosis without current pathological fracture; N18.31 Chronic kidney disease, stage 3a; R73.03 Prediabetes
CPT/HCPCS: 36415; 71046; 72148; 80053; 80061; 81003; 82043; 82306; 82570; 85025

== ENCOUNTER 2024-11-30 07:42 | Outpatient (OUT) | payer MEDICARE, SELFPAY ==
--- OUTSIDE RECORDS SUMMARY | 2020-04-11 07:00 | XMS_ITS | Continuity of Care Document ---
Author Organization [facility] Address [address] [place] [address] [place] [address] Phone Care Team Providers Care Engine Cleaner Name Role Phone Kayce Chanel CNP Unavailable [...] Copied on Encounter OFFICE/OUTPAT IENT VISIT, EST [facility], [address] [place] [address], [id number], [place] tel:[phone] [facility] No Information Darío Devries. [address] [place] [address], [id number], [place]. tel:[phone] Referring Provider: Kayce Chanel, [address] [place] [address] 222, [place], [address] . tel:[phone] [facility], [address] [place] [address] B, [place], [place], [address], [place] tel:[phone] [facility] No Information Darío Devries. [address], [place], [place], [address], [place]. tel:[phone] Referring Provider: Kayce Chanel, [address] [place] [address] [address], [place], [address] . tel:[phone] [facility], [address] [place] [address] [address], [place], [place], [address], [place] tel:[phone] [facility] No Information Darío Devries. [facility] [address] [facility] [address], [place], [place], [address], [place]. tel:[phone] Referring Provider: Kayce Chanel, [address] [place] [address] [address], [place], [address] . tel:[phone] [facility], [address] [place] [address] [address], [place], [place], [address], [place] tel:[phone] [facility] No Information Darío Devries. [facility] [address] [facility] [address], [place], [place], [address], [place]. tel:[phone] Referring Provider: Kayce Chanel, [facility] [address] [facility] [address], [place], [address] . tel:[phone] [facility], [address] [place] [address] [address], [place], [place], [address], [place] tel:[phone] [facility] No Information Darío Devries. [address] [place] [address] [address], [facility] [place], [address], [place]. tel:[phone] Referring Provider: Kayce Chanel, [address] [place] [address] [address], [place], [address] . tel:[phone] [facility], [address] [place] [address] [address], [place], [place], [address], [place] tel:[phone] [facility] No Information Yulia Anguiano. [address] [facility] [address], [place], [place], [address], [place]. tel:[phone] Referring Provider: Silvio Acevedo, [address] [facility] [address], [place], [address] . tel:[phone] OFFICE/OUTPAT IENT VISIT, [facility], [address] [place] [address] [address], [place], [place], [address], [place] tel:[phone] [facility] No Information Yulia Anguiano. [address] [facility] [address], [place], [place], [address], [place]. tel:[phone] Referring Provider: Silvio Acevedo, [address] [facility] [address], [place], [address] . tel:[phone] [facility], [address] [place] [address] [address], [place], [place], [address], [place] tel:[phone] [facility] No Information No Information OFFICE/OUTPAT IENT VISIT, [facility], [address] [place] [address] [address], [place], [place], [address], [place] tel:[phone] [facility] No Information Yulia Anguiano. [address] [facility] [address], [place], [place], [address], [place]. tel:[phone] Referring Provider: Silvio Acevedo, [address] [facility] [address], [place], [address] . tel:[phone] OFFICE/OUTPAT IENT VISIT, [facility], [address] [place] [address] [address], [place], [place], [address], [place] tel:[phone] [facility] No Information Yulia Anguiano. [address] [facility] [address], [place], [place], [address], [place]. tel:[phone] Referring Provider: Silvio Acevedo, [address] [facility] [address], [place], [address] . tel:[phone] OFFICE/OUTPAT IENT VISIT, [facility], [address] [facility] [address], [place], [place], [address], [place] tel:[phone] [facility] No Information Yulia Anguiano. [address] [place] [address] [address], [place], [place], [address], [place]. tel:[phone] Referring Provider: Silvio Acevedo, [address] [place] [address] [address], [place], [address] . tel:[phone] Family History Family Member Type Diagnosis Age At Onset No Information Payers Payer name Insurance type Covered alliance party ID Authorgerard thakur(s) [facility] Medicare Solutions [id number] Social History Type Description Quantity Date Captured [...]
--- OUTSIDE RECORDS SUMMARY | 2024-11-30 07:44 | XMS_ITS | Clinical Summary ---
Author Organization [employer] Address [id number] [address] [place] [address] Care Team Providers Care Soap Drier Operator Name Role Phone Adelaida Carrion APRN-HR GENERALIST Primary Care Provider Medications gabapentin (NEURONTIN) 600 mg tabletIndicatio ns:Neuropathy 1 tablet po in the am (600mg) 1 tablet po at noon (600mg) an 2 tablets po at bedtime (1200mg) 120 tablet 5 05/04/2018 Active Encounters Date Type Department Care Team Description 10/08/2024 12:51 PM EDT - 10/09/2024 6:17 PM EDT Emergency [facility] [address] [place] [address] Discharge Disposition: Telemedicine Discharge from [...] on file Insurance [employer] MEDICARE Care Teams Soap Drier Operator Relationship Specialty Start Date End Date Adelaida Carrion, DIRECTOR OF RESEARCH CENTER-HR GENERALIST PCP - General Nurse Practitioner 12/10/16
--- OUTSIDE RECORDS SUMMARY | 2024-11-30 07:44 | XMS_ITS | Clinical Summary ---
Author Organization [facility] Address [address], [address] [place] [address] Care Team Providers Care Wildlife Conservationist Name Role Phone Adelaida Carrion APRN - [...] mouth daily Active Multiple Vitamins-Minera ls (THERAPEUTIC MULTIVITAMIN-ID NERALS) tablet Take 1 tablet by mouth [...] = 0.6 oz pur e alcohol) Rarely [facility] Utilities Answer Date Recorded In [...] in a skilled nursing (including now)? No 08/24/2023 Food Insecurity Answer [...] - 145 mmol/L 01/20/2024 11:15 PM EDT [facility] Potassium 4.6 3.7 - 5.3 mmol/L 01/20/2024 11:15 PM EDT [facility] Comment: Specimen hemolysis has exceeded the interference as defined by Paul. Value may be falsely increased. Suggest recollection if clinically indicated. Chloride 106 98 - 107 mmol/L 01/20/2024 11:15 PM EDT [facility] CO2 24 20 - 31 mmol/L 01/20/2024 11:15 PM T [facility] Anion Gap 10 9 - 16 mmol/L 01/20/2024 11:15 PM EDT [facility] Glucose 97 74 - 99 mg/dL 01/20/2024 11:15 PM EDT [facility] BUN 17 8 - 23 mg/dL 01/20/2024 11:15 PM EDT [facility] Creatinine 1.2(H) 0.50 - 0.90 mg/dL 01/20/2024 11:15 PM T [facility] Est, Glom Filt Rate 54(L) >60 mL/min/1.7 3m2 01/20/2024 11:15 PM EDT [facility] Comment: These results are [...] 9 - 20 01/20/2024 11:15 PM EDT [facility] Calcium 8.8 8.6 - 10.4 mg/dL 01/20/2024 11:15 PM T [facility] Total Protein 6.5(L) 6.6 - 8.7 g/dL 01/20/2024 11:15 PM EDT [facility] Albumin 3.9 3.5 - 5.2 g/dL 01/20/2024 11:15 PM T [facility] Albumin/Globulin Ratio 1.5 1.0 - 2.5 01/20/2024 11:15 PM EDT [facility] Total Bilirubin 0.2 0.00 - 1.20 mg/dL 01/20/2024 11:15 PM EDT [facility] Alkaline Phosphatase 86 35 - 104 U/L 01/20/2024 11:15 PM EDT [facility] ALT 20 10 - 35 U/L 01/20/2024 11:15 PM EDT [facility] AST 27 10 - 35 U/L 01/20/2024 11:15 PM EDT [facility] Blood BLOOD SPECIMEN / Unknown 01/20/2024 11:15 PM EDT 01/21/2024 12:31 AM EDT us Rochelle Lopes MD CHEMISTRY ORDERABLES Final Resul t [facility] [address] [place] [address], [facility] [phone] from Last 3 Months or Most Recently Relevant to Health Maintenance Insurance Advance Directives Documents on File Type Date Recorded Patient 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
--- OUTSIDE RECORDS SUMMARY | 2024-11-30 07:44 | XMS_ITS | Patient Health Record ---
Author Organization [facility] [place] Address [address] [place] [address] Care Team Providers Care Geosciences Faculty Member Name Role Phone Adelaida Carrion CNP Primary [...] Problem Status W/U Status Risk Notes Problem [id number] Sprain of tarsometatarsal ligament of right foot, initial encounter (S93.621A) Active confirmed Problem 994334320 Lumbar postlaminectomy syndrome (M96.1) Active confirmed Problem [id number] Lumbosacral spondylosis without myelopathy (M47.817) Active confirmed [...] [employer] MEDICARE PPO [address] [address] [place], [place] [id number] [phone] [id number] Nasim Conway Self - patient is the insured MEDIC[place] [address] [place] [place] [address] [id number] Nasim Conway Self - patient is the insured Medical (General) History Medical History History ICD Code Right foot pain M79.671 hypertension dysphagia Osteoporosis M81.0 Bipolar disorder with severe depression F31.4 Brain vascular 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
--- OUTSIDE RECORDS SUMMARY | 2024-11-30 07:44 | XMS_ITS | Clinical Summary ---
Author Organization [facility] Address [address] [place] [address] Care Team Providers Care Mold Puller Name Role Phone Unavailable Primary Care Provider [...]
--- OUTSIDE RECORDS SUMMARY | 2024-11-30 07:48 | XMS_ITS | CCD ---
Author Organization [facility] Care Team Providers Care Associate Professor Of Music Name Role Phone EBRAHEIM, SUKI Admitting Unavailable EBRAHEIM, SUKI Attending Unavailable AICHHOLZ, ADELAIDA Referring Unavailable AICHHOLZ, ADELAIDA Primary Care Unavailable MT Procedure Practitioner Unavailab SUKI Jacob Surgeon Unavailable MT Procedure Practitioner Unavailab CHAPARRITA Goncalves Surgeon Unavailable BRIDGETTE MACEDO Admitting Unavailable BRIDGETTE MACEDO Attending Unavailable AICHHOLZ, SUPERVISOR CAR INSTALLATIONS ADELAIDA Primary Care Unavailable NIXON ., DR FINA Iverson Admitting Unavailable NIXON ., DR FINA Iverson Attending Unavailable AICHHOLZ, SUPERVISOR CAR INSTALLATIONS ADELAIDA Primary Care Unavailable MCDANIEL ., ZELDA Consulting Unavailable LAKSHMIPATHY ., NARENDRANATH Consulting Paula vailable LAKSHMIPATHY ., NARENDRANATH Admitting Paula vailable LAKSHMIPATHY ., NARENDRANATH Attending Paula vailable AICHHOLZ, SUPERVISOR CAR INSTALLATIONS ADELAIDA Primary Care Unavailable LAKSHMIPATHY ., NARENDRANATH Consulting Paula vailable AICHHOLZ, SUPERVISOR CAR INSTALLATIONS ADELAIDA Primary Care Unavailable MARKER ., DR CHAUDHRY Admitting Unavailable MARKER ., DR CHAUDHRY Attending Unavailable MARKER ., DR CHAUDHRY Consulting Unavailable AICHHOLZ, SUPERVISOR CAR INSTALLATIONS ADELAIDA Admitting Unavailable AICHHOLZ, SUPERVISOR CAR INSTALLATIONS ADELAIDA Attending Unavailable AICHHOLZ, SUPERVISOR CAR INSTALLATIONS ADELAIDA Primary Care Unavailable NIXON ., DR FINA Iverson Admitting Unavailable NIXON ., DR FINA Iverson Attending Unavailable AICHHOLZ, SUPERVISOR CAR INSTALLATIONS ADELAIDA Primary Care Unavailable MCDANIEL ., ZELDA Consulting Unavailable NIXON ., DR FINA Iverson Admitting Unavailable NIXON ., DR FINA Iverson Attending Unavailable AICHHOLZ, SUPERVISOR CAR INSTALLATIONS ADELAIDA Primary Care Unavailable MCDANIEL ., ZELDA Consulting Unavailable AICHHOLZ, SUPERVISOR CAR INSTALLATIONS ADELAIDA Admitting Unavailable AICHHOLZ, SUPERVISOR CAR INSTALLATIONS ADELAIDA Attending Unavailable AICHHOLZ, SUPERVISOR CAR INSTALLATIONS ADELAIDA Primary Care Unavailable AICHHOLZ, SUPERVISOR CAR INSTALLATIONS ADELAIDA Consulting Unavailable AICHOLZ, SUPERVISOR CAR INSTALLATIONS ADELAIDA Admitting Unavailable AICHHOLZ, SUPERVISOR CAR INSTALLATIONS ADELAIDA Attending Unavailable AICHOLZ, [facility] ADELAIDA Primary Care Unavailable AICHHOLZ, SUPERVISOR CAR INSTALLATIONS ADELAIDA Consulting Unavailable MISC, DR COTE Admitting Unavailable MISC, DR COTE Attending Unavailable AICHOLZ, [facility] ADELAIDA Primary Care Unavailable AICHHOLZ, SUPERVISOR CAR INSTALLATIONS ADELAIDA Consulting Unavailable ELYSSA, DR COTE Consulting Unavailable STARR, DR KINGSLEY Atkins Consulting Unavailable NIXON ., DR FINA Iverson Admitting Unavailable NIXON ., DR FINA Iverson Attending Unavailable AICHOLZ, [facility] ADELAIDA Primary Care Unavailable MCDANIEL ., ZELDA Consulting Unavailable NIXON ., DR FINA Iverson Admitting Unavailable NIXON ., DR FINA Iverson Attending Unavailable [facility] Primary Care Unavailable NIXON ., DR FINA Iverson Consulting Unavailable OMID LAY Consulting Unavailable NIXON ., DR FINA Iverson Admitting Unavailable NIXON ., DR FINA Iverson Attending Unavailable [facility], [facility] Primary Care Unavailable MCDANIEL ., ZELDA Consulting Unavailable [facility], [facility] Primary Care Unavailable HALKER ., ARIAN Admitting Unavailable HALKER ., ARIAN Attending Unavailable LAKSHMIPATHY ., NARENDRANATH Consulting Paula vailable HALKER ., ARIAN Consulting Unavailable LAKSHMIPATHY ., NARENDRANATH Admitting Paula vailable LAKSHMIPATHY ., NARENDRANATH Attending Paula vailable [facility] Primary Care Unavailable LAKSHMIPATHY ., NARENDRANATH Consulting Paula vailable AICHOLZ, SUPERVISOR CAR INSTALLATIONS ADELAIDA Admitting Unavailable AICHOLZ, SUPERVISOR CAR INSTALLATIONS ADELAIDA Attending Unavailable AICHOLZ, SUPERVISOR CAR INSTALLATIONS ADELAIDA Primary Care Unavailable AICHHOLZ, SUPERVISOR CAR INSTALLATIONS ADELAIDA Consulting Unavailable BRIDGETTE MACEDO Admitting Unavailable BRIDGETTE MACEDO Attending Unavailable AICHOLZ, SUPERVISOR CAR INSTALLATIONS ADELAIDA Primary Care Unavailable STARR, DR KINGSLEY Atkins Consulting Unavailable BRIDGETTE MACEDO Consulting Unavailable GILMER NEVES Admitting Unavailable GILMER NEVES Attending Unavailable PURA, GILMER Consulting Unavailable AICHOLZ, SUPERVISOR CAR INSTALLATIONS ADELAIDA Primary Care Unavailable AICHOLZ, SUPERVISOR CAR INSTALLATIONS ADELAIDA Primary Care Unavailable DR WILLI RINALDI Admitting Unavailable DEEJAY, DR WILLI Atkins Attending Unavailable DR WILLI RINALDI Consulting Unavailable AICHOLZ, SUPERVISOR CAR INSTALLATIONS ADELAIDA Primary Care Unavailable ALMAZ ., DANNY Admitting Unavailable ALMAZ ., DANNY Attending Unavailable DR KINGSLEY CLEMENTS Consulting Unavailable ALMAZ ., DANNY Consulting Unavailable LAKSHMIPATHY ., NARENDRANATH Admitting Paula vailable LAKSHMIPATHY ., NARENDRANATH Attending Paula vailable AICHHOLZ, SUPERVISOR CAR INSTALLATIONS ADELAIDA Primary Care Unavailable AICHHOLZ, SUPERVISOR CAR INSTALLATIONS ADELAIDA Admitting Unavailable AICHHOLZ, SUPERVISOR CAR INSTALLATIONS ADELAIDA Attending Unavailable AICHHOLZ, SUPERVISOR CAR INSTALLATIONS ADELAIDA Primary Care Unavailable AICHHOLZ, SUPERVISOR CAR INSTALLATIONS ADELAIDA Admitting Unavailable AICHHOLZ, SUPERVISOR CAR INSTALLATIONS ADELAIDA Attending Unavailable AICHHOLZ, SUPERVISOR CAR INSTALLATIONS ADELAIDA Primary Care Unavailable AICHHOLZ, SUPERVISOR CAR INSTALLATIONS ADELAIDA Consulting Unavailable ZIEBER, DR KINGSLEY Atkins Consulting Unavailable HALKER ., ARIAN Admitting Unavailable HALKER ., ARIAN Attending Unavailable AICHHOLZ, SUPERVISOR CAR INSTALLATIONS ADELAIDA Primary Care Unavailable Aichholz, Adelaida J Primary Care Provider [phone] MD Gaudencio Monk Admit Provider MD Gaudencio Monk Attending Provider JOHANN Vieira Other Provider Unavailable JOHANN Pina Other Provider Unavailable JOHANN Hurtado Other Provider Unavailable JOHANN Crooks Other Provider Unavailable JOHANN Mejias Other Provider Unavailable JOHANN Kim Other Provider Unavailable MD Walker Pringle Other Provider Dilans, KEYBOARDING CLERK Adelaida Huddleston Other Provider [phone] DO Jessica Murillo Other Provider MD Obdulio Bragg Other Provider [phone] DO Joon Cristina Other Provider [phone] MD Torin Robert Other Provider MD Dawn [...] Care Provider MD Jace Graham Attending Provider [phone] Sheyla HYDRAULIC MODELING ENGINEER, Adelaida Unavailable José Luis Roberts MD Primary Care Provider Sheyla HYDRAULIC MODELING ENGINEER, Adelaida Unavailable Daniela GRAHAM, Miriam Unavailable Moises CAMPBELL, Diana Unavailable Unavailable Unallocated , [place] Provider Primary Care Yadirai kellee Sheyla HYDRAULIC MODELING ENGINEER, Adelaida Unavailable José Luis Roberts MD Primary Care Provider [phone] Bong Rosado MA Unavailable Unavailable Aida CAMPBELL, [...] Foster Consulting Unavailable Daniela Miriam Consulting Unavailable LawrenceKingsley downing Consulting Unavailable Kar Burt Consulting Unavailab [...] ADELAIDA Attending Unavailable LOWE, JUANY Attending Unavailable KAITLYN, RACHEL Attending Unavailable DAVID FOSTER Attending Unavailable LOWE, JUANY Referring Unavailable AICHHOLZ, ADELAIDA Attending Unavailable KAITLYN, RACHEL Referring Unavailable Allergies Allergy Classification Reported Allergen(s) Allergy Type Date of Onset Reaction(s) Facility (7 sources) Adhesive Tape; Translations: [ADHESIVE TAPE] Propensity to adverse reactions (disorder) 04-06-19 14 rash [facility] Repository (3 sources) levETIRAcetam; Translations: [KEPPRA] Drug Allergy 07-02-19 19 [facility] Repository (3 sources) milnacipran; Translations: [SAVELLA] Drug Allergy 03-14-20 13 The [facility] Repository (1 source) Penicillin; Translations: [PENICILLIN] Drug Allergy 01-16-20 18 The [facility] Repository (5 sources) Prochlorperazin e; Translations: [COMPAZINE] Drug Allergy 03-14-20 13 agitation [facility] Repository (20 sources) Tetracycline; Translations: [TETRACYCLINE] Drug Allergy 04-06-19 13 Hives, Unknown [facility] Repository (4 sources) Penicillins Drug allergy (disorder) 04-06-19 13 Unknown Reaction The [facility] Repository (20 sources) levETIRAcetam; Translations: [levetiracetam] Drug Allergy 12-13-19 22 Hallucinations , Other [facility] (20 sources) milnacipran; Translations: [milnacipran] Drug Allergy 12-13-19 22 hives, Hallucinations , Other, Unknown [facility] (20 sources) Prochlorperazin e; Translations: [prochlorperazi ne] Drug Allergy 12-13-19 22 Unknown, Other [facility] (2 sources) Penicillin G Drug Allergy as a child [place] Other (2 sources) Tetracaine Drug Allergy Unknown [place] Other (20 sources) Penicillins Drug Intolerance 12-13-19 22 Anaphylaxis [facility] (20 sources) Other Propensity to adverse reactions 12-13-19 22 Other [facility] (20 sources) Wound Dressing Adhesive Drug Allergy 09-20-19 23 Rash, Unknown [facility] (20 sources) Eszopiclone Drug Allergy 09-21-19 24 Hallucinations , Anaphylaxis [facility] (1 source) Penicillin Drug Allergy 03-02-20 [facility] Repository (1 source) Penicillins Drug allergy (disorder) 03-02-20 [facility] Repository (1 source) Tetracaine Drug Allergy 03-02-20 [facility] Repository Medications Current Medications [...] + D 0 Active Cannabinoids (medical cannabis) (11 sources) Cannabinoids (medical cannabis) Take 1 each [...] 12.5 mg oral tablet (20 sources) alpha-Adrenergic Ijm, beta-Adrenergic Jim Start: 10-05-2023 End: 11-12-2024 take [...] 2022 12:45am diazePAM 10 mg oral tablet (9 sources) Benzodiazepine Start: 10-31-2024 diazePAM (Valium) 10 [...] Active fexofenadine hydrochloride 180 mg oral tablet (20 sources) Histamine-1 Receptor Antagonist Start: 08-16-2024 End: [...] 0 Active Iron-Vitamin C (IRON 100/C PO) (11 sources) Iron-Vitamin C ( IRON 100/C PO) [...] sources) Magnesium 400 MG capsule Pt taking OTC(BioVex) Active Magnesium 400 MG capsule magnesium 0 [...] e Melatonin 12 MG tablet Indications: from Amperion Take 1 tablet by mouth at bedtime [...] s-Minerals (BARIATRIC MULTIVITAMINS/IRON PO) Pt taking OTC (Amperion) Active Multiple Vitamin s-Minerals (BARIATRIC MULTIVITAMINS/IRON PO) Bariatric Multivitamins/Iron 0 Active Bnucqvgmujll-Fef-Kfak-Fa-Vit K (Bariatric Multivitamins) 45 mg iron- 800 mcg-120 mcg Capsule (2 sources) Start: 11-17-2022 take 1 capsule by mouth once daily Prmoeyhsacff-Tzp-Miqo-Fa-Vit K (Bariatric Multivitamins) 45 mg iron- 800 mcg-120 mcg Capsule Active 1 CAP PO Daily November 16, 2022 11:00pm Start: 11-17-2022 take 1 capsule by mo uth once daily Mfevyfquaxmk-Ioy-Cqjg-Fa-Vit K (Bariatri c Multivitamins) 45 mg iron- 800 mcg-120 mcg Capsule Active 1 CAP PO Daily November 17, 2022 12:00am nystatin 295844 unt/ml topical cream (20 sources) Polyene Antifungal Start: 03-07-2024 nystatin (M ycostatin) cream 03/07/2024 Active nystatin (Mycost atin) 895808 UNIT/GM powder Apply 1 application topically in [...] of awareness] 04-12-2024 Episodic Residual codes; unclassified (15 sources) Disorientated; Translations: [Disorientation, unspecified] Onset: 10-14-1910-13-2024 [...] Episodic Other aftercare (1 source) Other termite treater (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) drug therapy; Translations: [OTH LARRY OPERATOR CURRENT DRUG THERAPY] Onset: 04-29-2022 Episodic [...] Test Name Value Interpretation Reference Range Facility MR LUMBAR SPINE WO ALENon [address] [address] Magnetic Resonance Report Signed Patient: MICHELLE BE MR#: [id number] : 1960 Acct:[id number] Age/Sex: 63 / F ADM Date: 11/23/24 Loc: MRI Attending Dr: Elizabeth Culp NP Ordering Physician: Elizabeth Culp NP Date of Service: 11/23/24 Procedure(s): MR lumbar spine wo alen Accession Number(s): [id number] cc: Adelaida Carrion NP; Elizabeth Culp NP [place] [id number] Patient Name: MICHELLE BE MRN: [id number] date: 1960 Sex: F Assigned Patient Location: MRI Current Patient Location: MRI Accession/Order Number: [id number] Exam Date: 11/23/2024 12:59 Report Date: 11/23/2024 13:28 At the request of: ELIZABETH CULP NP Procedure: MR lumbar spine wo alen MRI of the lumbar spine performed without contrast INDICATION: Chronic lumbar pain COMPARISON: X-rays lumbar spine 12/02/2023 FINDINGS: Lumbar vertebral heights are maintained. Anterolisthesis of renal for no 07/10/2019 3 mm and 4 mm likely likely related to the degenerative facet arthropathy this level. Minimal intervertebral space narrowing notably L5-S1. Conus medullaris service normally at L1-L2. T12-L1: Mild to moderate facet arthropathy. Mild to moderate right foraminal narrowing and mild left from narrowing. No significant disc disease or disc protrusion. Canal is patent. L1-2: Mild to moderate right mild left facet arthropathy. No significant disc disease disc protrusion central canal or neural from narrowing identified. L2-3: Mild to moderate facet arthropathy. Mild left foraminal narrowing. Right foramen and central canal patent. No significant disc disease or disc protrusion. L3-4: Broad-based disc bulge with moderate to severe facet arthropathy. Slight. Posterior disc noted. There is moderate central canal narrowing. Ytsa-gh-qytesdin neural foraminal narrowing. L4-5: Circumferential disc bulge with small right subarticular zone T2 hyperintensity and protrusion questionably contacting the right traversing L5 nerve root. No high-grade mass effect or displacement on the L5 nerve root identified. Otherwise moderate foraminal narrowing. Advanced facet arthropathy. Lrxc-mn-nzemdsqv central canal stenosis. L5-S1: Disc desiccation with moderate facet arthropathy. Canal neural foramina patent. MR/MR lumbar spine wo con IMPRESSION: Posterior elements degenerative changes notably L3-L5 with anterolisthesis L3 on L4 and L4 on L5 up to 4 mm caused by a moderate severe facet arthropathy. There is up to moderate foraminal narrowing at these levels. Impression dictated by: Omar Calderon M.D. 11/23/2024 1:28 PM Dictation Location: [place] [address] Electronically authenticated by: [id number] Y Date: 11/23/2024 13:28 Dictated By: Omar Calderon M.D. Signed By: 11/23/24 1330 DD/ 1328 TD/TT: Sterilization Technician: [facility] Radiology, Radiologist, - 11/23/[address] [address] Magnetic Resonance Report Signed Patient: MICHELLE BE MR#: [id number] : 1960 Acct:[id number] Age/Sex: 63 / F ADM Date: 11/23/24 Loc: MRI Attending Dr: Elizabeth Culp NP Ordering Physician: Elizabeth Culp NP Date of Service: 11/23/24 Procedure(s): MR lumbar spine wo con Accession Number(s): [id number] cc: Adelaida Carrion NP; Elizabeth Culp NP The [address] [address] Patient Name: MICHELLE BE MRN: [facility]:[id number] date: 1960 Sex: F Assigned Patient Location: MRI Current Patient Location: MRI Accession/Order Number: [id number] Exam Date: 11/23/2024 12:59 Report Date: 11/23/2024 13:28 At the request of: ELIZABETH CULP NP Procedure: MR lumbar spine wo con MRI of the lumbar spine performed without contrast INDICATION: Chronic lumbar pain COMPARISON: X-rays lumbar spine 12/02/2023 FINDINGS: Lumbar vertebral heights are maintained. Anterolisthesis of renal for no 07/10/2019 3 mm and 4 mm likely likely related to the degenerative facet arthropathy this level. Minimal intervertebral space narrowing notably L5-S1. Conus medullaris service normally at L1-L2. T12-L1: Mild to moderate facet arthropathy. Mild to moderate right foraminal narrowing and mild left from narrowing. No significant disc disease or disc protrusion. Canal is patent. L1-2: Mild to moderate right mild left facet arthropathy. No significant disc disease disc protrusion central canal or neural from narrowing identified. L2-3: Mild to moderate facet arthropathy. Mild left foraminal narrowing. Right foramen and central canal patent. No significant disc disease or disc protrusion. L3-4: Broad-based disc bulge with moderate to severe facet arthropathy. Slight. Posterior disc noted. There is moderate central canal narrowing. Glnt-uw-vuqlezyz neural foraminal narrowing. L4-5: Circumferential disc bulge with small right subarticular zone T2 hyperintensity and protrusion questionably contacting the right traversing L5 nerve root. No high-grade mass effect or displacement on the L5 nerve root identified. Otherwise moderate foraminal narrowing. Advanced facet arthropathy. Clbu-qs-rubftrle central canal stenosis. L5-S1: Disc desiccation with moderate facet arthropathy. Canal neural foramina patent. MR/MR lumbar spine wo con IMPRESSION: Posterior elements degenerative changes notably L3-L5 with anterolisthesis L3 on L4 and L4 on L5 up to 4 mm caused by a moderate severe facet arthropathy. There is up to moderate foraminal narrowing at these levels. Impression dictated by: Omar Calderon M.D. 11/23/2024 1:28 PM Dictation Location: [place] [address] Electronically authenticated by: [id number] Y Date: 11/23/2024 13:28 Dictated By: Omar Calderon M.D. Signed By: 11/23/24 1330 DD/ 1328 TD/TT: Sterilization Technician: [facility] Radiology Study observation (narrative) [facility] MR LUMBAR SPINE WO Shantal d By: Radiologist Radiology on 11-23-2024 [facility] Work Phone: [facility] MICROALB CREAT RATIO RAN DOMon 11-23-2024 CREATININE URINE RANDOM 94.24 mg/dL 20.00 - 300.00 mg/dL [facility] MICROALBUMIN URINE RANDOM <1.3 NINF - 30.0 mg/dL [facility] XR CHEST 2Von 11-23-2024 [place] [address] XRay Report Signed Patient: MICHELLE BE MR#: [id number] : 1960 Acct:[id number] Age/Sex: 63 / F ADM Date: 11/23/24 Loc: [facility] Attending Dr: HARRISON HOYOS Ordering Physician: HARRISON HOYOS Date of Service: 11/23/24 Procedure(s): XR chest 2V Accession Number(s): [id number] cc: Adelaida Carrion HYDRAULIC MODELING ENGINEER; HARRISON HOYOS [address] [address] Patient Name: MICHELLE BE MRN: [id number]:[id number] date: 1960 Sex: F Assigned Patient Location: [facility] Current Patient Location: MRI Accession/Order Number: [id number] Exam Date: 11/23/2024 12:50 Report Date: 11/23/2024 12:51 At the request of: HARRISON HOYOS Procedure: XR chest 2V PA AND LATERAL CHEST: CLINICAL HISTORY: Pre Operative Testing COMPARISON: 07/24/2024 FINDINGS: Unremarkable cardiomediastinal. Lungs clear. No effusion or pneumothorax. XR/XR chest 2V IMPRESSION: NO ACUTE CARDIOPULMONARY ABNORMALITY. Impression dictated by: Omar Calderon M.D. 11/23/2024 12:51 PM Dictation Location: [place] [address] Electronically authenticated by: [id number] Y Date: 11/23/2024 12:51 Dictated By: Omar Calderon M.D. Signed By: 11/23/241253 DD/ 50 TD/TT: Sterilization Technician: [facility] Radiology, Radiologist, - 11/23/2024 [place] [address] XRay Report Signed Patient: MICHELLE BE MR#: [id number] : 1960 Acct:[id number] Age/Sex: 63 / F ADM Date: 11/23/24 Loc: RAD Attending Dr: HARRISON HOYOS Ordering Physician: HARRISON HOYOS Date of Service: 11/23/24 Procedure(s): XR chest 2V Accession Number(s): [id number] cc: Adelaida Carrion HYDRAULIC MODELING ENGINEER; HARRISON HOYOS [place] [id number] Patient Name: MICHELLE BE MRN: [facility]:[id number] date: 1960 Sex: F Assigned Patient Location: [facility] Current Patient Location: MRI Accession/Order Number: [id number] Exam Date: 11/23/2024 12:50 Report Date: 11/23/2024 12:51 At the request of: HARRISON HOYOS Procedure: XR chest 2V PA AND LATERAL CHEST: CLINICAL HISTORY: Pre Operative Testing COMPARISON: 07/24/2024 FINDINGS: Unremarkable cardiomediastinal. Lungs clear. No effusion or pneumothorax. XR/XR chest 2V IMPRESSION: NO ACUTE CARDIOPULMONARY ABNORMALITY. Impression dictated by: Omar Calderon M.D. 11/23/2024 12:51 PM Dictation Location: [place] [address] Electronically authenticated by: [id number] Y Date: 11/23/2024 12:51 Dictated By: Omar Calderon M.D. Signed By: 11/23/241253 DD/ 50 TD/TT: Sterilization Technician: [facility] Radiology Study observation (narrative) [facility] XR CHEST 2VOrdered By: [facility] Rad[facility] on 11-23-2024 [facility] Work Phone: IGP,APTIMA HPV,AGE GDLNon AGE GDLN ACOG TESTING Note . [facility] Comment on above: TESTS RESULT FLAG UN ITS REF RANGE LAB Clinician Provided Cytology Information Source.............Cervix;Endocervix No. of containers..01 ThinPrep Vial Age Algo ACOG Tona... 01 FLAG LEGEND: L-Low Normal,H-High Normal,LL-Alert Low,HH-Alert High <-Panic Low,>-Panic High,A-Abnormal,AA-Critical Abnormal Performed at: 01 =[address] [place] [address] Farzana Hennessy MD, HPV APTIMA Negative Negative [facility] Comment on above: This nucleic acid am plification test detects fourteen high- risk HPV types (16,18,31,33,35,39,45,51,52,56,58,59,66,68) without differentiation. Performed at: =[address] [id number] Forger Helper: Farzana Hennessy MD, Phone: [phone] Performed at: [address] [id number] Forger Helper: Farzana Hennessy MD, Phone: [phone] IGP, APTIMA HPV, RFX 16/18,45 Note . [facility] Comment on above: TESTS RESULT FLAG UN ITS REF RANGE LAB DIAGNOSIS: 02 NEGATIVE FOR INTRAEPITHELIAL LESION OR MALIGNANCY. CELLULAR CHANGES ASSOCIATED WITH ATROPHY ARE PRESENT. Specimen adequacy: 02 Satisfactory for evaluation. Endocervical component may not be distinguished in cases of atrophy. Performed by: 02 Adela Acosta Jury Consultant (ASC) . 02 Note: Note 02 The Pap [...] <-Panic Low,>-Panic High,A-Abnormal,AA-Critical Abnormal Performed at: [address] [address] Farzana Hennessy MD, BRUSH-SPATULA CERVIX ENDOCERVIX [facility] MR KNEE RIGHT WO IV CONTRAST on [...] - bilat eral GE 2 Viewson 09-29-2024 [place] [id number] XRay Report Signed Patient: MICHELLE BE MR#: [id number] : 1960 Acct:[id number] Age/Sex: 63 / F ADM Date: 09/29/24 Loc: RAD Attending Dr: Elizabeth Culp NP Ordering Physician: Elizabeth Culp NP Date of Service: 09/29/24 Procedure(s): XR hip BHUMI Accession Number(s): [id number] cc: Adelaida Carrion NP; Elizabeth Culp NP [address] [address] Patient Name: MICHELLE BE MRN: [id number] date: 1960 Sex: F Assigned Patient Location: [facility] Current Patient Location: [facility] Accession/Order Number: [id number] Exam Date: 09/29/2024 11:20 Report Date: 09/29/2024 [...] Bernal M.D. 09/29/2024 11:23 AM Dictation Location: [place] [address] Electronically authenticated by: [id number] Y Date: 09/29/2024 11:23 Dictated By: Edith Bernal M.D. Signed By: 09/29/24 1126 DD/ 1123 TD/TT: Sterilization Technician: [facility] Radiology, Radiologist, MD - 09/29/2024 The [place] [id number] XRay Report Signed Patient: MICHELLE BE MR#: [id number] : 1960 Acct:[id number] Age/Sex: 63 / F ADM Date: 09/29/24 Loc: RAD Attending Dr: Elizabeth Culp NP Ordering Physician: Elizabeth Culp NP Date of Service: 09/29/24 Procedure(s): XR hip BHUMI Accession Number(s): [id number] cc: Adelaida Carrion NP; Elizabeth Culp NP The [address] [address] Patient Name: MICHELLE BE MRN: [facility]:[id number] date: 1960 Sex: F Assigned Patient Location: RAD Current Patient Location: RAD Accession/Order Number: [id number] Exam Date: 09/29/2024 11:20 Report Date: 09/29/2024 [...] Bernal M.D. 09/29/2024 11:23 AM Dictation Location: [place] [address] Electronically authenticated by: [id number] Y Date: 09/29/2024 11:23 Dictated By: Edith Bernal M.D. Signed By: 09/29/24 1126 DD/ 1123 TD/TT: Sterilization Technician: [facility] Radiology Study observation (narrative) [facility] XR Pelvis AP and Hip - bilat eral GE 2 ViewsOrdered By: Radiologist Radiology on 09-29-2024 [facility] [employer] Work Phone: CT LUNG SCREENING LOW DOSEon 09-26-2024 [place] [address] CT Scan Report Signed Patient: MICHELLE BE MR#: [id number] : 1960 Acct:[id number] Age/Sex: 63 / F ADM Date: 09/26/24 Loc: MAMMO Attending Dr: Adelaida Carrion NP Ordering Physician: Adelaida Carrion NP Date of Service: 09/26/24 Procedure(s): CT lung screening low-dose Accession Number(s): [id number] cc: Adelaida Carrion NP [place] [id number] Patient Name: MICHELLE BE MRN: [facility]:[id number] date: 1960 Sex: F Assigned Patient Location: [facility] Current Patient Location: RAD Accession/Order Number: [id number] Exam Date: 09/26/2024 16:58 Report Date: 09/26/2024 [...] Guadalupe M.D. 09/26/2024 5:02 PM Dictation Location: [place] [address] Electronically authenticated by: [id number] Y Date: 09/26/2024 17:02 Dictated By: Willi Guadalupe M.D. Signed By: 09/26/24 1704 DD/ 01 TD/TT: Sterilization Technician: [facility] Radiology, Radiologist, - 09/26/[address] [address] [address] Scan Report Signed Patient: MICHELLE BE MR#: [id number] : 1960 Acct:[id number] Age/Sex: 63 / F ADM Date: 09/26/24 Loc: MAMMO Attending Dr: Adelaida Carrion NP Ordering Physician: Adelaida Carrion NP Date of Service: 09/26/24 Procedure(s): CT lung screening low-dose Accession Number(s): [id number] cc: Adelaida Carrion NP [address] [address] Patient Name: MICHELLE BE MRN: [id number] date: 1960 Sex: F Assigned Patient Location: MAMMO Current Patient Location: RAD Accession/Order Number: [id number] Exam Date: 09/26/2024 16:58 Report Date: 09/26/2024 [...] Guadalupe M.D. 09/26/2024 5:02 PM Dictation Location: [place] [address] Electronically authenticated by: [id number] Y Date: 09/26/2024 17:02 Dictated By: Willi Guadalupe M.D. Signed By: 09/26/241703 DD/ 01 TD/TT: Sterilization Technician: [facility] [employer] Radiology Study observation (narrative) [facility] CT LUNG SCREENING LOW DOSEOr dered By: Radiologist Radiology on 09-26-2024 [facility] [employer] Work Phone: MM TOMOSYNTHESIS SCREENING B Ion 09-26-2024 [place] [address] Mammography Report Signed Patient: MICHELLE BE MR#: [id number] : 1960 Acct:[id number] Age/Sex: 63 / F ADM Date: 09/26/24 Loc: MAMMO Attending Dr: Adelaida Carrion NP Ordering Physician: Adelaida Carrion NP Results: Date of Service: 09/26/24 Follow Up: Procedure(s): MM tomosynthesis screening BI Accession Number(s): [id number] cc: Adelaida Carrion NP Patient Name: MICHELLE BE MR#: [id number] : 1960 Exam Date: 09/26/2024 Ordering Doctor: [...] Treatments None Family Cancers None LOCATION: The [facility] BREAST COMPOSITION: There are scattered areas [...] M.D. Signed By: 09/26/241642 DD/ 41 TD/TT: Sterilization Technician: [facility] Radiology, Radiologist, MD - 09/26/2024 [place] [address] Mammography Report Signed Patient: MICHELLE BE MR#: [id number] : 1960 Acct:[id number] Age/Sex: 63 / F ADM Date: 09/26/24 Loc: MAMMO Attending Dr: Adelaida Carrion NP Ordering Physician: Adelaida Carrion NP Results: Date of Service: 09/26/24 Follow Up: Procedure(s): MM tomosynthesis screening BI Accession Number(s): [id number] cc: Adelaida Carrion NP Patient Name: MICHELLE BE MR#: [id number] : 1960 Exam Date: 09/26/2024 Ordering Doctor: LIVIER CARROIN CNP RADIOLOGY REPORT PROCEDURE: MM TOMOSYNTHESIS SCREENING [...] Treatments None Family Cancers None LOCATION: The [facility] BREAST COMPOSITION: There are scattered areas [...] M.D. Signed By: 09/26/241642 DD/ 41 TD/TT: Sterilization Technician: [facility] Radiology Study observation (narrative) [facility] MM TOMOSYNTHESIS SCREENING B IOrdered By: Radiologist Radiology on 09-26-2024 [facility] Work Phone: XR SHOULDER RT MIN 2Von 09-05 [place] [address] XRay Report Signed Patient: MICHELLE BE MR#: [id number] : 1960 Acct:[id number] Age/Sex: 63 / F ADM Date: 09/26/24 Loc: RAD Attending Dr: Elizabeth uClp NP Ordering Physician: Elizabeth Culp NP Date of Service: 09/26/24 Procedure(s): XR shoulder RT min 2V Accession Number(s): [id number] cc: Adelaida Carrion HYDRAULIC MODELING ENGINEER; Elizabeth Culp NP [place] [id number] Patient Name: MICHELLE BE MRN: [id number] date: 1960 Sex: F Assigned Patient Location: RAD Current Patient Location: RAD Accession/Order Number: [id number] Exam Date: 09/26/2024 13:34 Report Date: 09/26/2024 [...] Guadalupe M.D. 09/26/2024 1:35 PM Dictation Location: [place] [address] Electronically authenticated by: [id number] Y Date: 09/26/2024 13:35 Dictated By: Willi Guadalupe M.D. Signed By: 09/26/248 DD/ 34 TD/TT: Sterilization Technician: [facility] Radiology, Radiologist, MD - 09/26/[address] [address] XRay Report Signed Patient: MICHELLE BE MR#: [id number] : 1960 Acct:[id number] Age/Sex: 63 / F ADM Date: 09/26/24 Loc: RAD Attending Dr: Elizabeth Culp NP Ordering Physician: Elizabeth Culp NP Date of Service: 09/26/24 Procedure(s): XR shoulder RT min 2V Accession Number(s): [id number] cc: Adelaida Carrion NP; Elizabeth Culp NP The [address] [address] Patient Name: MICHELLE BE MRN: [facility]:[id number] date: 1960 Sex: F Assigned Patient Location: RAD Current Patient Location: RAD Accession/Order Number: [id number] Exam Date: 09/26/2024 13:34 Report Date: 09/26/2024 [...] Guadalupe M.D. 09/26/2024 1:35 PM Dictation Location: [place] [address] Electronically authenticated by: [id number] Y Date: 09/26/2024 13:35 Dictated By: Willi Guadalupe M.D. Signed By: 09/26/24 1338 DD/ 34 TD/TT: Sterilization Technician: [facility] Radiology Study observation (narrative) [facility] XR SHOULDER RT MIN 2VOrdered By: Radiologist Radiology on 09-26-2024 [facility] Work Phone: HbA1c (Bld) [Mass fraction]o n 08-16-2024 Interpretation and review of laboratory results [facility] - Hematology and Cell countson 08-16-2024 HbA1c (Bld) [Mass fraction] 5.6 % [facility] Complete Blood Count Auto Di ffon 03-05-2024 Basophils (Bld) [#/Vol] 0.0 10*3/uL Normal 0.0-0.2 The [facility] Comment on above: Result Comment: PERF ORMED BY: [place] [address] [place] [address] PATHOLOGIST CLINICAL COORDINATOR ADIEL AGUSTIN M.D. Performed By: #### C BC, MG, CMP #### [facility] [address] [place] [address] [place] Basophils/100 WBC (Bld) 0.5 % Normal . The [facility] Comment on above: Performed By: #### C BC, MG, CMP #### [facility] [address] [place] [address] [place] Eosinophils (Bld) [#/Vol] 0.2 10*3/uL Normal 0.0-0.45 The [facility] Comment on above: Performed By: #### C BC, MG, CMP #### [facility] [address] [place] [address] [place] Eosinophils/100 WBC (Bld) 2.2 % Normal . The [facility] Comment on above: Performed By: #### C BC, MG, CMP #### [facility] [address] Erythrocyte distribution width (RBC) [Ratio] 14.5 % Normal 11.9-15.3 The [facility] Comment on above: Performed By: #### C BC, MG, CMP #### [facility] [address] Hematocrit (Bld) [Volume fraction] 43.0 % Normal 34.0-46.4 The [facility] Comment on above: Performed By: #### C BC, MG, CMP #### [facility] [address] [place] [address] [place] Hemoglobin (Bld) [Mass/Vol] 14.3 g/dL Normal 11.8-15.4 The [facility] Comment on above: Performed By: #### C BC, MG, CMP #### [facility] [address] [place] [address] [place] Lymphocytes (Bld) [#/Vol] 1.8 10*3/uL Normal 1.00-4.8 The [facility] Comment on above: Performed By: #### C BC, MG, CMP #### [facility] [address] [place] [address] [place] Lymphocytes/100 WBC (Bld) 18.9 % Normal . The [facility] Comment on above: Performed By: #### C BC, MG, CMP #### [address] MCH (RBC) [Entitic mass] 29.0 pg Normal 24.7-34.3 The [facility] Comment on above: Performed By: #### C BC, MG, CMP #### [address] MCV (RBC) [Entitic vol] 87.0 fL Normal 80-100 The [facility] Comment on above: Performed By: #### C BC, MG, CMP #### [address] Mean Corpuscular HGB Conc 33.4 g/dL Normal 32.0-35.0 The [facility] Comment on above: Performed By: #### C BC, MG, CMP #### [address] Monocytes (Bld) [#/Vol] 0.5 10*3/uL Normal 0.0-0.8 The [facility] Comment on above: Performed By: #### C BC, MG, CMP #### [address] Monocytes/100 WBC (Bld) 5.5 % Normal . The [facility] Comment on above: Performed By: #### C BC, MG, CMP #### [address] Neutrophils (Bld) [#/Vol] 7.0 10*3/uL Normal 1.8-7.7 The [facility] Comment on above: Performed By: #### C BC, MG, CMP #### [address] Neutrophils/100 WBC (Bld) 72.9 % Normal . The [facility] Comment on above: Performed By: #### C BC, MG, CMP #### [address] NRBC% 0.0 /100{WBC} Normal 0-0.5 The [facility] Comment on above: Performed By: #### C BC, MG, CMP #### [address] Platelet mean volume (Bld) [Entitic vol] 8.9 fL Normal 6.3-10.7 The [facility] Comment on above: Performed By: #### C BC, MG, CMP #### [address] Platelets (Bld) [#/Vol] 289 10*3/uL Normal 150-450 The [facility] Comment on above: Performed By: #### C BC, MG, CMP #### [address] RBC (Bld) [#/Vol] 4.94 10*6/uL Normal 3.60-5.00 The [facility] Comment on above: Performed By: #### C BC, MG, CMP #### [address] WBC (Bld) [#/Vol] 9.6 10*3/uL Normal 3.8-11.6 The [facility] Comment on above: Performed By: #### C BC, MG, CMP #### [address] Comprehensive Metabolic Pane [place] 03-05-2024 Albumin [Mass/Vol] 4.4 g/dL Normal 3.5-5.7 The [facility] Comment on above: Performed By: #### C BC, MG, CMP #### [address] Albumin/Globulin [Mass ratio] 1.3 {ratio} Normal The [facility] Comment on above: Performed By: #### C BC, MG, CMP #### [address] ALP [Catalytic activity/Vol] 79 U/L Normal 34-104 The [facility] Comment on above: Performed By: #### C BC, MG, CMP #### [address] [place] [address] [place] ALT [Catalytic activity/Vol] 23 U/L Normal 7-52 The [facility] Comment on above: Performed By: #### C BC, MG, CMP #### [facility] [address] Anion gap [Moles/Vol] 15.4 mmol/L High 6.0-15.0 Th e [facility] Comment on above: Performed By: #### C BC, MG, CMP #### [address] AST [Catalytic activity/Vol] 36 U/L Normal 13-39 The [facility] Comment on above: Performed By: #### C BC, MG, CMP #### [address] Bilirubin [Mass/Vol] 0.4 mg/dL Normal 0.3-1.0 The [facility] Comment on above: Performed By: #### C BC, MG, CMP #### [address] Calcium [Mass/Vol] 9.5 mg/dL Normal 8.6-10.3 The [facility] Comment on above: Performed By: #### C BC, MG, CMP #### [address] Chloride [Moles/Vol] 106 mmol/L Normal 98-107 The [facility] Comment on above: Performed By: #### C BC, MG, CMP #### [address] CO2 [Moles/Vol] 23.1 mmol/L Normal 21.0-31.0 The [facility] Comment on above: Performed By: #### C BC, MG, CMP #### [address] Creatinine [Mass/Vol] 0.96 mg/dL Normal 0.60-1.20 The [facility] Comment on above: Performed By: #### C BC, MG, CMP #### [address] [place] [address] [place] Creatinine Clr Calc Pharmacy 84.51 Normal The [facility] Comment on above: Performed By: #### C BC, MG, CMP #### [address] GFR/1.73 sq M.predicted MDRD (S/P/Bld) [Vol rate/Area] mL/min/{1.73_m2} Normal The [facility] Comment on above: Performed By: #### C BC, MG, CMP #### [address] Globulin (S) [Mass/Vol] 3.3 g/dL Normal The [facility] Comment on above: Performed By: #### C BC, MG, CMP #### [address] Glucose [Mass/Vol] 133 mg/dL High 70-100 The [facility] Comment on above: Result Comment: [place] Glucose Reference Range is dependent on time and content of last meal. Glucose of more than 200 mg/dL in a nonstressed, ambulatory subject supports the diagnosis of Diabetes Mellitus. ADA recommended reference range Performed By: #### C BC, MG, CMP #### [address] Potassium [Moles/Vol] 3.5 mmol/L Normal 3.5-5.1 The [facility] Comment on above: Performed By: #### C BC, MG, CMP #### [address] Protein [Mass/Vol] 7.7 g/dL Normal 6.4-8.9 The [facility] Comment on above: Performed By: #### C BC, MG, CMP #### [address] Sodium [Moles/Vol] 141 mmol/L Normal 136-145 The [facility] Comment on above: Performed By: #### C BC, MG, CMP #### [address] Urea nitrogen [Mass/Vol] 18 mg/dL Normal 7-25 The [facility] Comment on above: Performed By: #### C BC, MG, CMP #### [address] Magnesiumon 03-05-2024 Magnesium [Mass/Vol] 2.0 mg/dL Normal 1.9-2.7 The [facility] Comment on above: Result Comment: PERF ORMED BY: [place] [address] PATHOLOGIST CLINICAL COORDINATOR ADIEL AGUSTIN M.D. Performed By: #### C BC, MG, CMP #### [address] Complete Blood Count Auto Di ffon 03-04-2024 Basophils (Bld) [#/Vol] 0.1 10*3/uL Normal 0.0-0.2 The [facility] Comment on above: Result Comment: PERF ORMED BY: [place] [address] PATHOLOGIST CLINICAL COORDINATOR ADIEL AGUSTIN M.D. Performed By: #### C MP, MG, CBC #### [address] Basophils/100 WBC (Bld) 0.6 % Normal . The [facility] Comment on above: Performed By: #### C MP, MG, CBC #### [address] Eosinophils (Bld) [#/Vol] 0.2 10*3/uL Normal 0.0-0.45 The [facility] Comment on above: Performed By: #### C MP, MG, CBC #### [address] Eosinophils/100 WBC (Bld) 1.9 % Normal . The [facility] Comment on above: Performed By: #### C MP, MG, CBC #### [address] Erythrocyte distribution width (RBC) [Ratio] 14.6 % Normal 11.9-15.3 The [facility] Comment on above: Performed By: #### C MP, MG, CBC #### [address] Hematocrit (Bld) [Volume fraction] 43.5 % Normal 34.0-46.4 The [facility] Comment on above: Performed By: #### C MP, MG, CBC #### [address] Hemoglobin (Bld) [Mass/Vol] 14.4 g/dL Normal 11.8-15.4 The [facility] Comment on above: Performed By: #### C MP, MG, CBC #### [address] Lymphocytes (Bld) [#/Vol] 1.8 10*3/uL Normal 1.00-4.8 The [facility] Comment on above: Performed By: #### C MP, MG, CBC #### [address] Lymphocytes/100 WBC (Bld) 18.0 % Normal . The [facility] Comment on above: Performed By: #### C MP, MG, CBC #### [address] MCH (RBC) [Entitic mass] 28.8 pg Normal 24.7-34.3 The [facility] Comment on above: Performed By: #### C MP, MG, CBC #### [address] MCV (RBC) [Entitic vol] 87.0 fL Normal 80-100 The [facility] Comment on above: Performed By: #### C MP, MG, CBC #### [address] Mean Corpuscular HGB Conc 33.2 g/dL Normal 32.0-35.0 The [facility] Comment on above: Performed By: #### C MP, MG, CBC #### [address] Monocytes (Bld) [#/Vol] 0.8 10*3/uL Normal 0.0-0.8 The [facility] Comment on above: Performed By: #### C MP, MG, CBC #### [facility] [address] Monocytes/100 WBC (Bld) 8.2 % Normal . The [facility] Comment on above: Performed By: #### C MP, MG, CBC #### [facility] [address] [place] [address] Neutrophils (Bld) [#/Vol] 7.3 10*3/uL Normal 1.8-7.7 The [facility] Comment on above: Performed By: #### C MP, MG, CBC #### [address] Neutrophils/100 WBC (Bld) 71.3 % Normal . The [facility] Comment on above: Performed By: #### C MP, MG, CBC #### [address] NRBC% 0.1 /100{WBC} Normal 0-0.5 The [facility] Comment on above: Performed By: #### C MP, MG, CBC #### [address] Platelet mean volume (Bld) [Entitic vol] 8.8 fL Normal 6.3-10.7 The [facility] Comment on above: Performed By: #### C MP, MG, CBC #### [facility] [address] [place] [address] [place] Platelets (Bld) [#/Vol] 334 10*3/uL Normal 150-450 The [facility] Comment on above: Performed By: #### C MP, MG, CBC #### [place] [address] [place] RBC (Bld) [#/Vol] 5.01 10*6/uL High 3.60-5.00 The [facility] Comment on above: Performed By: #### C MP, MG, CBC #### [place] [id number] [place] WBC (Bld) [#/Vol] 10.3 10*3/uL Normal 3.8-11.6 The [facility] Comment on above: Performed By: #### C MP, MG, CBC #### [address] Comprehensive Metabolic Pane [place] 03-04-2024 Albumin [Mass/Vol] 4.5 g/dL Normal 3.5-5.7 The [facility] Comment on above: Performed By: #### C MP, MG, CBC #### [address] Albumin/Globulin [Mass ratio] 1.4 {ratio} Normal The [facility] Comment on above: Performed By: #### C MP, MG, CBC #### [address] ALP [Catalytic activity/Vol] 79 U/L Normal 34-104 The [facility] Comment on above: Performed By: #### C MP, MG, CBC #### [address] ALT [Catalytic activity/Vol] 19 U/L Normal 7-52 The [facility] Comment on above: Performed By: #### C MP, MG, CBC #### [address] Anion gap [Moles/Vol] 11.4 mmol/L Normal 6.0-15.0 [facility] Comment on above: Performed By: #### C MP, MG, CBC #### [address] AST [Catalytic activity/Vol] 37 U/L Normal 13-39 The [facility] Comment on above: Performed By: #### C MP, MG, CBC #### [address] Bilirubin [Mass/Vol] 0.5 mg/dL Normal 0.3-1.0 The [facility] Comment on above: Performed By: #### C MP, MG, CBC #### [address] [place] [address] [place] Calcium [Mass/Vol] 9.6 mg/dL Normal 8.6-10.3 The [facility] Comment on above: Performed By: #### C MP, MG, CBC #### [facility] [address] [place] [address] [place] Chloride [Moles/Vol] 107 mmol/L Normal 98-107 The [facility] Comment on above: Performed By: #### C MP, MG, CBC #### [address] CO2 [Moles/Vol] 27.4 mmol/L Normal 21.0-31.0 The [facility] Comment on above: Performed By: #### C MP, MG, CBC #### [address] Creatinine [Mass/Vol] 0.91 mg/dL Normal 0.60-1.20 The [facility] Comment on above: Performed By: #### C MP, MG, CBC #### [place] [address] [place] Creatinine Clr Calc Pharmacy 90.12 Normal The [facility] Comment on above: Performed By: #### C MP, MG, CBC #### [place] [address] [place] GFR/1.73 sq M.predicted MDRD (S/P/Bld) [Vol rate/Area] mL/min/{1.73_m2} Normal The [facility] Comment on above: Performed By: #### C MP, MG, CBC #### [place] [address] [place] Globulin (S) [Mass/Vol] 3.2 g/dL Normal The [facility] Comment on above: Performed By: #### C MP, MG, CBC #### [place] [address] [place] Glucose [Mass/Vol] 100 mg/dL Normal 70-100 The [facility] Comment on above: Result Comment: [place] Glucose Reference Range is dependent on time and content of last meal. Glucose of more than 200 mg/dL in a nonstressed, ambulatory subject supports the diagnosis of Diabetes Mellitus. ADA recommended reference range Performed By: #### C MP, MG, CBC #### [address] Potassium [Moles/Vol] 3.8 mmol/L Normal 3.5-5.1 The [facility] Comment on above: Performed By: #### C MP, MG, CBC #### [address] Protein [Mass/Vol] 7.7 g/dL Normal 6.4-8.9 The [facility] Comment on above: Performed By: #### C MP, MG, CBC #### [address] Sodium [Moles/Vol] 142 mmol/L Normal 136-145 The [facility] Comment on above: Performed By: #### C MP, MG, CBC #### [address] Urea nitrogen [Mass/Vol] 15 mg/dL Normal 7-25 The [facility] Comment on above: Performed By: #### C MP, MG, CBC #### [address] MR head/brain wo/w conon MR head/brain wo/w con [facility] [place] [address] [place] [address] MRI Report Signed Patient: Michelle Be MR#: [id number] : 1960 Acct:[id number] Age/Sex: 63 / F ADM Date: 03/03/24 Loc: Room: [address] [place] [address] Type: ADM IN Attending Dr: Delta Gan [...] Willi Guadalupe M.D.03/04/2024 2:32 PM Dictation Location: [place] [address] Transcribed By: [facility] 03/04/24 1432 Dictated By: Willi Guadalupe II, MD 03/04/24 1424 Signed By: 03/04/24 1432 Normal The [facility] Magnesiumon 03-04-2024 Magnesium [Mass/Vol] 2.0 mg/dL Normal 1.9-2.7 The [facility] Comment on above: Result Comment: PERF ORMED BY: [place] [address] PATHOLOGIST CLINICAL COORDINATOR ADIEL AGUSTIN M.D. Performed By: #### C MP, MG, CBC #### [address] Complete Blood Count Auto Di ffon 03-03-2024 Basophils (Bld) [#/Vol] 0.1 10*3/uL Normal 0.0-0.2 The [facility] Comment on above: Order Comment: RIN T O COME TRY,KAH,160 Result Comment: PERF ORMED BY: [place] [address] PATHOLOGIST CLINICAL COORDINATOR ADIEL AGUSTIN M.D. Performed By: #### C BC, CMP #### [address] Basophils/100 WBC (Bld) 0.6 % Normal . The [facility] Comment on above: Order Comment: RIN T O COME TRY,KAH,160 Performed By: #### C BC, CMP #### [place] [address] [place] Eosinophils (Bld) [#/Vol] 0.1 10*3/uL Normal 0.0-0.45 The [facility]ician Group Comment on above: Order Comment: RIN T O COME TRY,KAH,160 Performed By: #### C BC, CMP #### [place] [address] [place] Eosinophils/100 WBC (Bld) 1.0 % Normal . The [facility] Comment on above: Order Comment: RIN T O COME TRY,KAH,160 Performed By: #### C BC, CMP #### [address] Erythrocyte distribution width (RBC) [Ratio] 14.6 % Normal 11.9-15.3 The [facility] Comment on above: Order Comment: RIN T O COME TRY,KAH,160 Performed By: #### C BC, CMP #### [address] Hematocrit (Bld) [Volume fraction] 42.9 % Normal 34.0-46.4 The [facility] Comment on above: Order Comment: RIN T O COME TRY,KAH,160 Performed By: #### C BC, CMP #### [address] Hemoglobin (Bld) [Mass/Vol] 14.5 g/dL Normal 11.8-15.4 The [facility] Comment on above: Order Comment: RIN T O COME TRY,KAH,1607 Performed By: #### C BC, CMP #### [place] [address] [place] Lymphocytes (Bld) [#/Vol] 1.7 10*3/uL Normal 1.00-4.8 The [facility] Comment on above: Order Comment: RIN T O COME TRY,KAH,1607 Performed By: #### C BC, CMP #### [place] [address] [place] Lymphocytes/100 WBC (Bld) 15.7 % Normal . [facility] Comment on above: Order Comment: RIN T O COME TRY,KAH,1607 Performed By: #### C BC, CMP #### [address] MCH (RBC) [Entitic mass] 29.1 pg Normal 24.7-34.3 The [facility] Comment on above: Order Comment: RIN T O COME TRY,KAH,1607 Performed By: #### C BC, CMP #### [address] MCV (RBC) [Entitic vol] 85.9 fL Normal 80-100 The [facility] Comment on above: Order Comment: RIN T O COME TRY,KAH,1607 Performed By: #### C BC, CMP #### [address] Mean Corpuscular HGB Conc 33.8 g/dL Normal 32.0-35.0 The [facility] Comment on above: Order Comment: RIN T O COME TRY,KAH,1607 Performed By: #### C BC, CMP #### [place] [address] [place] Monocytes (Bld) [#/Vol] 0.9 10*3/uL High 0.0-0.8 The [facility] Comment on above: Order Comment: RIN T O COME TRY,KAH,1607 Performed By: #### C BC, CMP #### [place] [address] [place] Monocytes/100 WBC (Bld) 8.4 % Normal . [facility] Comment on above: Order Comment: RIN T O COME TRY,KAH,1607 Performed By: #### C BC, CMP #### [place] [address] [place] Neutrophils (Bld) [#/Vol] 8.0 10*3/uL High 1.8-7.7 The [facility] Comment on above: Order Comment: RIN T O COME TRY,KAH,1607 Performed By: #### C BC, CMP #### [place] [address] [place] Neutrophils/100 WBC (Bld) 74.3 % Normal . The [facility] Comment on above: Order Comment: RIN T O COME TRY,KAH,1607 Performed By: #### C BC, CMP #### [address] NRBC% 0.1 /100{WBC} Normal 0-0.5 The [facility] Comment on above: Order Comment: RIN T O COME TRY,KAH,1607 Performed By: #### C BC, CMP #### [place] [address] [place] Platelet mean volume (Bld) [Entitic vol] 8.9 fL Normal 6.3-10.7 The [facility] Comment on above: Order Comment: RIN T O COME TRY,KAH,1607 Performed By: #### C BC, CMP #### [place] [address] [place] Platelets (Bld) [#/Vol] 291 10*3/uL Normal 150-450 The [facility] Comment on above: Order Comment: RIN T O COME TRY,KAH,1607 Performed By: #### C BC, CMP #### [facility] [address] [place] [address] [place] RBC (Bld) [#/Vol] 4.99 10*6/uL Normal 3.60-5.00 The [facility] Comment on above: Order Comment: RIN T O COME TRY,KAH,1607 Performed By: #### C BC, CMP #### [address] [place] [address] [place] WBC (Bld) [#/Vol] 10.7 10*3/uL Normal 3.8-11.6 The [facility] Comment on above: Order Comment: RIN T O COME TRY,KAH,1607 Performed By: #### C BC, CMP #### [address] Comprehensive Metabolic Pane [place] 03-03-2024 Albumin [Mass/Vol] 4.6 g/dL Normal 3.5-5.7 The [facility] Comment on above: Order Comment: RIN T O COME TRY,KAH,1607 Performed By: #### C BC, CMP #### [address] Albumin/Globulin [Mass ratio] 1.4 {ratio} Normal The [facility] Comment on above: Order Comment: RIN T O COME TRY,KAH,1607 Performed By: #### C BC, CMP #### [address] ALP [Catalytic activity/Vol] 80 U/L Normal 34-104 The [facility] Comment on above: Order Comment: RIN T O COME TRY,KAH,1607 Performed By: #### C BC, CMP #### [address] ALT [Catalytic activity/Vol] 16 U/L Normal 7-52 The [facility] Comment on above: Order Comment: RIN T O COME TRY,KAH,1607 Performed By: #### C BC, CMP #### [address] Anion gap [Moles/Vol] 13.6 mmol/L Normal 6.0-15.0 Th e [facility] Comment on above: Order Comment: RIN T O COME TRY,KAH,1607 Performed By: #### C BC, CMP #### [address] AST [Catalytic activity/Vol] 35 U/L Normal 13-39 The [facility] Comment on above: Order Comment: RIN T O COME TRY,KAH,1607 Performed By: #### C BC, CMP #### [facility] [address] [id number] [facility] Bilirubin [Mass/Vol] 0.3 mg/dL Normal 0.3-1.0 The [facility] Comment on above: Order Comment: RIN T O COME TRY,KAH,160 Performed By: #### C BC, CMP #### [facility] [address] [place] [address] [place] Calcium [Mass/Vol] 9.3 mg/dL Normal 8.6-10.3 The [facility] Comment on above: Order Comment: RIN T O COME TRY,KAH,1606 Performed By: #### C BC, CMP #### [facility] [address] [place] [address] [place] Chloride [Moles/Vol] 109 mmol/L High 98-107 The [facility] Comment on above: Order Comment: RIN T O COME TRY,KAH,1606 Performed By: #### C BC, CMP #### [facility] [address] CO2 [Moles/Vol] 22.4 mmol/L Normal 21.0-31.0 The [facility] Comment on above: Order Comment: RIN T O COME TRY,KAH,1606 Performed By: #### C BC, CMP #### [facility] [address] Creatinine [Mass/Vol] 0.93 mg/dL Normal 0.60-1.20 The [facility] Comment on above: Order Comment: RIN T O COME TRY,KAH,1606 Performed By: #### C BC, CMP #### [facility] [address] [place] [address] [place] Creatinine Clr Calc Pharmacy 87.94 Normal The [facility] Comment on above: Order Comment: RIN T O COME TRY,KAH,1606 Result Comment: PERF ORMED BY: [place] [address] PATHOLOGIST CLINICAL COORDINATOR ADIEL AGUSTIN M.D. Performed By: #### C BC, CMP #### [address] [address] [place] GFR/1.73 sq M.predicted MDRD (S/P/Bld) [Vol rate/Area] mL/min/{1.73_m2} Normal The [facility] Comment on above: Order Comment: RIN T O COME TRY,KAH,1607 Performed By: #### C BC, CMP #### [facility] [address] [place] [address] [place] Globulin (S) [Mass/Vol] 3.2 g/dL Normal The [facility] Comment on above: Order Comment: RIN T O COME TRY,KAH,1607 Performed By: #### C BC, CMP #### [place] [address] [place] Glucose [Mass/Vol] 105 mg/dL High 70-100 The [facility] Comment on above: Order Comment: RIN T O COME TRY,KAH,160 Result Comment: [place] Glucose Reference Range is dependent on time and content of last meal. Glucose of more than 200 mg/dL in a nonstressed, ambulatory subject supports the diagnosis of Diabetes Mellitus. ADA recommended reference range Performed By: #### C BC, CMP #### [place] [address] [place] Potassium [Moles/Vol] 4.0 mmol/L Normal 3.5-5.1 The [facility] Comment on above: Order Comment: RIN T O COME TRY,KAH,160 Performed By: #### C BC, CMP #### [place] [address] [place] Protein [Mass/Vol] 7.8 g/dL Normal 6.4-8.9 The [facility] Comment on above: Order Comment: RIN T O COME TRY,KAH,160 Performed By: #### C BC, CMP #### [place] [address] [place] Sodium [Moles/Vol] 141 mmol/L Normal 136-145 The [facility] Comment on above: Order Comment: RIN T O COME TRY,KAH,160 Performed By: #### C BC, CMP #### [place] [id number] [facility] Urea nitrogen [Mass/Vol] 15 mg/dL Normal 7-25 The [facility] Comment on above: Order Comment: REY Marge Campbell JAK CHIQUITA,WEN,1607 Performed By: #### C BC, CMP #### [facility] [address] [id number] [facility] IGP,APTIMA HPV,AGE GDLNon AGE GDLN ACOG TESTING Note . [facility] Healthcare Comment on above: TESTS RESULT FLAG UN ITS REF RANGE LAB Clinician Provided Cytology Information Source.............Cervix;Endocervix No. of containers..01 ThinPrep Vial Age Algo ACOG Tona... 30-65 01 FLAG LEGEND: L-Low Normal,H-High Normal,LL-Alert Low,HH-Alert High <-Panic Low,>-Panic High,A-Abnormal,AA-Critical Abnormal Performed at: 01 =G [facility] [address] [place] [address] Farzana Hennessy MD, HPV APTIMA Negative Negative [facility] Comment on above: This nucleic acid am plification test detects fourteen high- risk HPV types (16,18,31,33,35,39,45,51,52,56,58,59,66,68) without differentiation. Performed at: =G - [facility] [address] [facility], [place] [id number] Forger Helper: Farzana Hennessy MD, Phone: [phone] Performed at: [facility] [address] [employer] [place], [place] [id number] Forger Helper: Scott Sandoval MD, Phone: [phone] IGP, APTIMA HPV, RFX 16/18,45 Note . [facility] Comment on above: TESTS RESULT FLAG UN ITS REF RANGE LAB DIAGNOSIS: 02 NEGATIVE FOR INTRAEPITHELIAL LESION OR MALIGNANCY. Specimen adequacy: 02 Satisfactory for evaluation. Endocervical and/or squamous metaplastic cells (endocervical component) are present. Performed by: 02 Adelaida Bustamante, Supervisor Costuming ([facility]) . 02 Note: Note 03 The Pap [...] <-Panic Low,>-Panic High,A-Abnormal,AA-Critical Abnormal Performed at: 02 [facility] [address] [address] [place] [address] Scott Sandoval MD, [facility] [address] [address] Farzana Hennessy MD, BROOM-ALONE CERVIX ENDOC[facility]IX [facility] Urinalysis macro (dipstick) panel (U)on 01-28-2024 Bilirubin, UA Negative Negative - 4(70) +++ mg/dL [facility] Blood, UA Negative Negative - 50 Kranhti/mcL [facility] Clarity, UA Clear [facility] Color, UA Dark Tania [facility] Glucose, UA Negative Negative - 2000(110) ++++ mg/dL [facility] Interpretation and review of laboratory results Abnormal [facility] Ketones, UA Negative Negative - 160(16) ++++ mg/dL [facility] Leukocytes, UA Trace Negative - 500+++ Radha/mcL [facility] Nitrite, UA Negative Negative - Positive [facility] pH, UA 5.5 5 - 9 [facility] Protein, UA Negative Negative - 2000(20) ++++ mg/dL [facility] Spec Grav, UA 1.025 1 - 1.03 [facility] Urobilinogen, UA 0.2 0.2 - 12 mg/dL [facility] CULT,URINEon 01-23-2024 Interpretation and review of laboratory results Abnormal [facility] MHPT CULT,URINE Specimen Description .CLEAN CATCH URINE [facility] MHPT CULT,URINE Culture ESCHERICHIA COLI >100,000 CFU/ML Abnormal [facility] STREPTOCOCCI, BETA HEMOLYTIC GROUP B 10 to 50,000 CFU/ML Abnormal [facility] Report Status FINAL 01/23/2024 [facility] MHPT CULT,URINE SUSCEPTIBILITY [facility] MHPT CULT,URINE Organism ESCHERICHIA COLI [facility] Method CROW [facility] MHPT CULT,URINE Ampicillin 16 INTERMEDIATE Intermediate [facility] MHPT CULT,URINE Cefazolin <=4 SUSCEPTIBLE Susceptible [facility] Cefazolin sensitivit y results can be used to predict the effectiveness of oral Susceptible [facility] MHPT CULT,URINE cephalosporins (eg. Cephalexin) in uncomplicated Urinary Tract Infections due Susceptible [facility] MHPT CULT,URINE to E. coli, K. pneumoniae, and P. mirabilis Susceptible [facility] MHPT CULT,URINE Ceftriaxone <=0.25 SUSCEPTIBLE Susceptible [facility] MHPT CULT,URINE Negative Susceptible [facility] MHPT CULT,URINE Gentamicin <=1 SUSCEPTIBLE Susceptible [facility] MHPT CULT,URINE Levofloxacin <=0.12 SUSCEPTIBLE Susceptible [facility] MHPT CULT,URINE Nitrofurantoin <=16 SUSCEPTIBLE Susceptible [facility] MHPT CULT,URINE Piperacillin/Tazobac ta m <=4 SUSCEPTIBLE Susceptible [facility] MHPT CULT,URINE Tobramycin <=1 SUSCEPTIBLE Susceptible [facility] MHPT CULT,URINE Trimethoprim/Sulfa <=20 SUSCEPTIBLE Susceptible [facility] Original [facility]ing [facility] METABOLIC PANELon 01-05-2024 Anion gap [Moles/Vol] 11.1 mmol/L [facility] Calcium [Mass/Vol] 9.2 mg/dL 8.5 - 10. 1 mg/dL [facility] Chloride [Moles/Vol] 105 mmol/L 98 - 10 7 mmol/L [facility] CO2 [Moles/Vol] 28.0 mmol/L 21.0 - 32.0 mmol/L [facility] Creatinine [Mass/Vol] 1.08 mg/dL High 0.55 - 1.02 mg/dL [facility] GFR/1.73 sq M.predicted CKD-EPI (S/P/Bld) [Vol rate/Area] >60 60 - PINF [facility] Glucose [Mass/Vol] 92 mg/dL 74 - 106 mg/dL [facility] Interpretation and review of laboratory results Abnormal [facility] Potassium [Moles/Vol] 4.1 mmol/L 3.5 - 5.1 mmol/L [facility] Sodium [Moles/Vol] 140 mmol/L 136 - 145 mmol/L [facility] TBH EGFR-NON AF GAMBIAN 51 Low 60 - PINF [facility] Urea nitrogen [Mass/Vol] 17.0 mg/dL 7.0 - 18.0 mg/dL [facility] Urea nitrogen/Creatinine [Mass ratio] 15.7 mg/mg [facility] Amphetamine Screen Ql (U)Ord ered By: Jace Graham on 03-23-2023 Amphetamines Ql (U) Negative Negative [facility] Barbiturates [Presence] in U rine by Screen methodOrdered By: Jace Graham on 03-23-2023 Barbiturates Screen Ql (U) Negative Negative [facility] Benzodiazepines Screen Ql (U )Ordered By: Jace Graham on 03-23-2023 Benzodiazepines Ql (U) Negative Negative [facility] Benzoylecgonine [Presence] i n Urine by Screen methodOrdered By: Jace Graham on 03-23-2023 Benzoylecgonine Screen Ql (U) Negative Negative [facility] Cannabinoids [Presence] in U rine by Screen methodOrdered By: Jace Graham on 03-23-2023 Cannabinoids Screen Ql (U) Negative Negative [facility] Comment on above: These are unconfirme d results and should not be used for legal purposes. Drug Cut-Off Concentration: AMPH 1000 ng/mL ELKIN 200 ng/mL ATIYA 200 ng/mL COCM 300 ng/mL OP 300 ng/mL PCP 25 ng/mL THC 20 ng/mL Opiates [Presence] in Urine by Screen methodOrdered By: Jace Graham on 03-23-2023 Opiates Screen Ql (U) Negative Negative [facility] Phencyclidine Screen Ql (U)O rdered By: Jace Graham on 03-23-2023 Phencyclidine Ql (U) Negative Negative [facility] Cholesterol [Mass/volume] in Serum or PlasmaOrdered By: Eduardo Monk on 11-18-2022 Cholesterol [Mass/Vol] 159 mg/dL 140-200 [facility] Comment on above: Chol less than 200 m g/dl low riskChol 201-239 mg/dl borderline riskChol 240 mg/dl and greater high risk Cholesterol in LDL Calc [Mas s/Vol]Ordered By: Eduardo Monk on 11-18-2022 Cholesterol in LDL [Mass/Vol] 84 mg/dL 0-100 [facility] Comment on above: LDL ATP III CLASSIFI CATIONLDL less than 100 mg/dL OptimalLDL 100-129 mg/dL Near or above optimalLDL 130-159 mg/dL Borderline highLDL 160-189 mg/dL HighLDL greater than 189 mg/dL Very high Cholesterol in VLDL Calc [Ma ss/Vol]Ordered By: Eduardo Monk on 11-18-2022 Cholesterol in VLDL [Mass/Vol] 28 mg/dL [facility] Serum or plasma high density lipoprotein (HDL) cholesterol measurementOrdered By: Eduardo Monk on 11-18-2022 Cholesterol in HDL [Mass/Vol] 46 mg/dL 23-92 [facility] Comment on above: HDL CHOL ATP-III CLA SSIFICATION Cardiovascular RiskHDL > or equal to 60 mg/dL LOWHDL < 40 mg/dL HIGH Serum or plasma total choles terol/high density lipoprotein (HDL) cholesterol mass ratOrdered By: Eduardo Monk on 11-18-2022 Cholesterol.total/Chol esterol in HDL [Mass ratio] 3.5 {ratio} <5.0 [facility] Thyrotropin [Units/volume] i n Serum or PlasmaOrdered By: Eduardo Monk on 11-18-2022 TSH Qn 2.13 m[IU]/L 0.45-5.33 [facility] Triglyceride [Mass/volume] i n Serum or PlasmaOrdered By: Eduardo Monk on 11-18-2022 Triglyceride [Mass/Vol] 144 mg/dL 0-149 [facility] Comment on above: TRIG ATP III CLASSIF ICATIONTRIG less than 150 mg/dL NormalTRIG 150-199 mg/dL Borderline highTRIG 200-500 mg/dL High TRIG greater than 500 mg/dL Very highStandard traceable to the Center for Disease Conrtrol and Prevention (CDC) test method. Vitamin D+Metabolites [Mass/ volume] in Serum or PlasmaOrdered By: Eduardo Monk on 11-18-2022 Vitamin D+Metabolites [Mass/Vol] 50.4 ng/mL 30-100 [facility] Comment on above: VITAMIN D STATUS 25( [place])VITAMIN D RANGE (ng/mL) Deficient <20 Insufficient 20 to <30Sufficient 30 to 100Reference: iBn MF,Lakshmi NC, Cristian SMART, et al. Evaluation,treatment, and prevention of vitamin D deficiency; an Endocrine Society clinical practice guideline. JCEM. 2010; 96(7):1911-30. CBC AUTO DIFFon 07-25-2022 BASO # 0.1 103/ul Normal 0.0-0.1 [facility] Comment on above: Performed By: #### A 1C #### [facility] [address] [place] [address] Dr. Bebeto Alvarado Basophils/100 WBC (Bld) 0.6 % Normal 0.2-2.0 [facility] Comment on above: Performed By: #### A 1C #### [facility] [address] [place] [address] Dr. Bebeto Alvarado EO # 0.2 103/ul Normal 0.0-0.7 [facility] Comment on above: Performed By: #### A 1C #### [facility] [address] [place] [address] Dr. Bebeto Alvarado Eosinophils/100 WBC (Bld) 2.3 % Normal 0.9-7.0 [facility] Comment on above: Performed By: #### A 1C #### [facility] [address] [place] [address] Dr. Bebeto Alvarado Erythrocyte distribution width (RBC) [Ratio] 13.8 % Normal 11.0-15.0 [facility] Comment on above: Performed By: #### A 1C #### [facility] [address] [place] [address] Dr. Bebeto Alvarado Hematocrit (Bld) [Volume fraction] 41.2 % Normal 36.0-48.0 [facility] Comment on above: Performed By: #### A 1C #### [facility] [address] [place] [address] Dr. Bebeto Alvarado Hemoglobin (Bld) [Mass/Vol] 13.2 g/dL Normal 12.0-16.0 [facility] Comment on above: Performed By: #### A 1C #### [facility] [address] [place] [address] Dr. Bebeto Alvarado IG # 0.03 10e3/ul Normal 0.00-0.03 [facility] Comment on above: Performed By: #### A 1C #### [facility] [address] [place] [address] Dr. Bebeto Alvarado IG % 0.4 % Normal 0.0-0.5 [facility] Comment on above: Performed By: #### A 1C #### [facility] [address] [place] [address] Dr. Bebeto Alvarado LYMPH # 2.1 103/ul Normal 1.2-3.8 [facility] Comment on above: Performed By: #### A 1C #### [facility] [address] [place] [address] Dr. Bebeto Alvarado Lymphocytes/100 WBC (Bld) 25.9 % Normal 20.5-60.0 [facility] Comment on above: Performed By: #### A 1C #### [facility] [address] [place] [address] Dr. Bebeto Alvarado MANUAL DIFF REQ NO Normal [facility] Comment on above: Performed By: #### A 1C #### [facility] [address] [place] [address] Dr. Bebeto Alvarado MCH (RBC) [Entitic mass] 28.0 pg Normal 26.7-34.0 [facility] Comment on above: Performed By: #### A 1C #### [facility] [address] [place] [address] Dr. Bebeto Alvarado MCHC (RBC) [Mass/Vol] 32.0 g/dL Normal 29.9-35.2 [facility] Comment on above: Performed By: #### A 1C #### [facility] [address] [place] [address] Dr. Bebeto Alvarado MCV (RBC) [Entitic vol] 87.5 fL Normal 81.0-99.0 [facility] Comment on above: Performed By: #### A 1C #### [facility] [address] [place] [address] Dr. Bebeto Alvarado MONO # 0.5 103/ul Normal 0.3-0.8 [facility] Comment on above: Performed By: #### A 1C #### [facility] [address] [place] [address] Dr. Bebeto Alvarado Monocytes/100 WBC (Bld) 6.6 % Normal 1.7-12.0 [facility] Comment on above: Performed By: #### A 1C #### [facility] [address] [place] [address] Dr. Bebeto Alvarado NEUT # 5.1 103/ul Normal 1.4-6.5 [facility] Comment on above: Performed By: #### A 1C #### [facility] [address] [place] [address] Dr. Bebeto Alvarado Neutrophils/100 WBC (Bld) 64.2 % Normal 43.0-75.0 [facility] Comment on above: Performed By: #### A 1C #### [facility] [address] [place] [address] Dr. Bebeto Alvarado Platelet mean volume (Bld) [Entitic vol] 11.2 fL Normal 9.5-13.5 [facility] Comment on above: Performed By: #### A 1C #### [facility] [address] [place] [address] Dr. Bebeto Alvarado PLT 252 103/ul Normal 150-450 [facility] Comment on above: Performed By: #### A 1C #### [facility] [address] [place] [address] Dr. Bebeto Alvarado RBC 4.71 106/ul Normal 4.20-5.40 [facility] Comment on above: Performed By: #### A 1C #### [facility] [address] [place] [address] Dr. Bebeto Alvarado WBC 8.0 103/ul Normal 4.0-11.0 [facility] Comment on above: Performed By: #### A 1C #### [facility] [address] [place] [address] Dr. Bebeto Alvarado GLYCOHEMOGLOBIN A1Con 2022 ADA RECOMMENDATION SEE BELOW Normal [facility] Comment on above: Result Comment: ADA RECOMMENDED LIMIT 4.0 - 6.0 ADA THERAPEUTIC TARGET < 7.0 ACTION SUGGESTED > 7.0 Performed By: #### A 1C #### [facility] [address] [place] [address] Dr. Bebeto Alvarado Glucose [Mass/Vol] 114 mg/dL Normal [facility] Comment on above: Performed By: #### A 1C #### [facility] [address] [place] [address] Dr. Bebeto Alvarado HbA1c (Bld) [Mass fraction] 5.6 % Normal 4.5-6.2 [facility] Comment on above: Performed By: #### A 1C #### [facility] [address] [address] [address] Bebeto Alvarado IRONon 07-25-2022 Iron [Mass/Vol] 60.0 ug/dL Normal 50.0-170.0 [facility] Comment on above: Performed By: #### V ITB12, IRON #### [facility] [address] [place] [address] Dr. Bebeto Alvarado LIPID PROFILEon 07-25-2022 CHOL-HDL RATIO NORM SEE BELOW Normal [facility] Comment on above: Result Comment: 3.3 - 4.4 LOW RISK 4.4 - 7.1 AVERAGE RISK 7.1 - 11.0 MODERATE RISK >11.0 HIGH RISK Performed By: #### C MP, LIPID #### [facility] [address] [place] [address] Dr. Bebeto Alvarado Cholesterol [Mass/Vol] 144 mg/dL Normal <=200 [facility] Comment on above: Performed By: #### C MP, LIPID #### [facility] [address] [place] [address] Dr. Bebeto Alvarado Cholesterol in HDL [Mass/Vol] 39 mg/dL Critically low 40-60 [facility] Comment on above: Performed By: #### C MP, LIPID #### [facility] [address] [place] [address] Dr. Bebeto Alvarado Cholesterol in LDL [Mass/Vol] 74.6 mg/dL Normal [facility] Comment on above: Performed By: #### C MP, LIPID #### [facility] [address] [place] [address] Dr. Bebeto Alvarado Cholesterol.total/Chol esterol in HDL [Mass ratio] 3.7 {ratio} Normal [facility] Comment on above: Performed By: #### C MP, LIPID #### [facility] [address] [address] [address] Bebeto Alvarado HDL NORMAL > or = 60 mg/dl - LO W CARDIOVASCULAR RISK <40 mg/dl - HIGH CARDIOVASCULAR RISK Normal [facility] Comment on above: Performed By: #### C MP, LIPID #### [facility] [address] [address] [address] Bebeto Alvarado LDL CALC NORMAL SEE BELOW Normal [facility] Comment on above: Result Comment: <100 mg/dl OPTIMAL 100 - 129 mg/dl NEAR OR ABOVE OPTIMAL 130 - 159 mg/dl BORDERLINE HIGH 160 - 189 mg/dl HIGH >190 mg/dl VERY HIGH Performed By: #### C MP, LIPID #### [facility] [address] [place] [address] Dr. Bebeto Alvarado Triglyceride [Mass/Vol] 152 mg/dL Critically high <=150 [facility] Comment on above: Performed By: #### C MP, LIPID #### [facility] [address] [address] [address] Bebeto Alvarado VLDL CALC 30.4 mg/dL Normal [facility] Comment on above: Performed By: #### C MP, LIPID #### [facility] [address] [place] [address] Dr. Bebeto Alvarado PROF 14(COMP METB)on 023 Albumin [Mass/Vol] 3.7 g/dL Normal 3.4-5.0 [facility] Comment on above: Performed By: #### C MP, LIPID #### [facility] [address] [place] [address] Dr. Bebeto Alvarado Albumin/Globulin [Mass ratio] 0.9 {ratio} Normal [facility] Comment on above: Performed By: #### C MP, LIPID #### [facility] [address] [place] [address] Dr. Bebeto Alvarado ALP [Catalytic activity/Vol] 90 U/L Normal 46-116 [facility] Comment on above: Performed By: #### C MP, LIPID #### [facility] [address] [address] [address] Bebeto Alvarado ALT [Catalytic activity/Vol] 38 U/L Normal 14-59 [facility] Comment on above: Performed By: #### C MP, LIPID #### [facility] [address] [address] [address] Bebeto Alvarado Anion gap [Moles/Vol] 12.1 mmol/L Normal [facility] Comment on above: Performed By: #### C MP, LIPID #### [facility] [address] [address] [address] Bebeto Alvarado AST [Catalytic activity/Vol] 26 U/L Normal 15-37 [facility] Comment on above: Performed By: #### C MP, LIPID #### [facility] [address] [address] [address] Bebeto Alvarado Bilirubin [Mass/Vol] 0.3 mg/dL Normal 0.2-1.0 [facility] Comment on above: Performed By: #### C MP, LIPID #### [facility] [address] [address] [address] Bebeto Alvarado Calcium [Mass/Vol] 9.3 mg/dL Normal 8.5-10.1 [facility] Comment on above: Performed By: #### C MP, LIPID #### [facility] [address] [address] [address] Bebeto Alvarado Chloride [Moles/Vol] 107 mmol/L Normal 98-107 [facility] Comment on above: Performed By: #### C MP, LIPID #### [facility] [address] [address] [address] Bebeto Alvarado CO2 [Moles/Vol] 27.9 mmol/L Normal 21.0-32.0 [facility] Comment on above: Performed By: #### C MP, LIPID #### [facility] [address] [address] [address] Bebeto Alvarado Creatinine [Mass/Vol] 0.95 mg/dL Normal 0.55-1.02 [facility] Comment on above: Performed By: #### C MP, LIPID #### [facility] [address] [address] [address] Bebeto Alvarado EGFR-AF GAMBIAN >60 Normal >=60 [facility] Comment on above: Performed By: #### C MP, LIPID #### [facility] [address] [address] [address] Bebeto Alvarado EGFR-NON AF GAMBIAN 60 mL/min/1.73m2 Normal >=60 [facility] Comment on above: Performed By: #### C MP, LIPID #### [facility] [address] [address] [address] Bebeto Alvarado Globulin (S) [Mass/Vol] 3.9 g/dL Normal [facility] Comment on above: Performed By: #### C MP, LIPID #### [facility] [address] [address] [address] Bebeto Alvarado Glucose [Mass/Vol] 108 mg/dL Critically high 74-106 [facility] Comment on above: Performed By: #### C MP, LIPID #### [facility] [address] [address] [address] Bebeto Alvarado Potassium [Moles/Vol] 4.0 mmol/L Normal 3.5-5.1 [facility] Comment on above: Performed By: #### C MP, LIPID #### [facility] [address] [address] [address] Bebeto Alvarado Protein [Mass/Vol] 7.6 g/dL Normal 6.4-8.2 [facility] Comment on above: Performed By: #### C MP, LIPID #### [facility] [address] [address] [address] Bebeto Alvarado Sodium [Moles/Vol] 143 mmol/L Normal 136-145 [facility] Comment on above: Performed By: #### C MP, LIPID #### [facility] [address] [address] [address] Bebeto Alvarado Urea nitrogen [Mass/Vol] 15.0 mg/dL Normal 7.0-18.0 [facility] Comment on above: Performed By: #### C MP, LIPID #### [facility] [address] [place] [address] Dr. Bebeto Alvarado Urea nitrogen/Creatinine [Mass ratio] 15.8 mg/mg Normal [facility] Comment on above: Performed By: #### C MP, LIPID #### [facility] [address] [place] [address] Dr. Bebeto Alvarado UA RANDOM W/MICROSCOPICon BACTERIA NONE SEEN Normal NONE SEEN [facility] Comment on above: Performed By: #### A 1C #### [facility] [address] [place] [address] Dr. Bebeto Alvarado Bilirubin Ql (U) Negative Normal NEGATIVE [facility] Comment on above: Performed By: #### A 1C #### [facility] [address] [place] [address] Dr. Bebeto Alvarado CAST NONE SEEN Normal NONE SEEN [facility] Comment on above: Performed By: #### A 1C #### [facility] [address] [place] [address] Dr. Bebeto Alvarado Clarity (U) CLEAR Normal CLEAR [facility] Comment on above: Performed By: #### A 1C #### [facility] [address] [place] [address] Dr. Bebeto Alvarado Color (U) YELLOW Normal YELLOW [facility] Comment on above: Performed By: #### A 1C #### [facility] [address] [place] [address] Dr. Bebeto Alvarado Crystals LM Nom (Urine sed) NONE SEEN Normal NONE SEEN [facility] Comment on above: Performed By: #### A 1C #### [facility] [address] [place] [address] Dr. Bebeto Alvarado Epithelial cells LM Ql (Urine sed) NONE SEEN Normal NONE SEEN /RARE [facility] Comment on above: Performed By: #### A 1C #### [facility] [address] [place] [address] Dr. Bebeto Alvarado Glucose Ql (U) Negative Normal NEGATIVE [facility] Comment on above: Performed By: #### A 1C #### [facility] [address] [place] [address] Dr. Bebeto Alvarado Hemoglobin Ql (U) Negative Normal NEGATIVE [facility] Comment on above: Performed By: #### A 1C #### [facility] [address] [place] [address] Dr. Bebeto Alvarado Ketones Ql (U) Negative Normal NEGATIVE [facility] Comment on above: Performed By: #### A 1C #### [facility] [address] [place] [address] Dr. Bebeto Alvarado LEUKOCYTES Negative Normal NEGATIVE [facility] Comment on above: Performed By: #### A 1C #### [facility] [address] [place] [address] Dr. Bebeto Alvarado MUCOUS NONE SEEN Normal NONE SEEN [facility] Comment on above: Performed By: #### A 1C #### [facility] [address] [place] [address] Dr. Bebeto Alvarado Nitrite Ql (U) Negative Normal NEGATIVE [facility] Comment on above: Performed By: #### A 1C #### [facility] [address] [place] [address] Dr. Bebeto Alvarado pH (U) 5.5 [pH] Normal 5-9 [facility] Comment on above: Performed By: #### A 1C #### [facility] [address] [place] [address] Dr. Bebeto Alvarado RBC NONE SEEN Abnormal 0-2 [facility] Comment on above: Performed By: #### A 1C #### [facility] [address] [place] [address] Dr. Bebeto Alvarado SPEC GRAVITY 1.030 Abnormal 1.005-<=1.02 5 [facility] Comment on above: Performed By: #### A 1C #### [facility] [address] [place] [address] Dr. Bebeto Alvarado UA PROTEIN Negative Normal NEGATIVE/ TRACE [facility] Comment on above: Performed By: #### A 1C #### [facility] [address] [place] [address] Dr. Bebeto Alvarado Urobilinogen Qn (U) 0.2 {Katerin'U}/dL Normal 0.2 - 1. 0 [facility] Comment on above: Performed By: #### A 1C #### [facility] [address] [place] [address] Dr. Bebeto Alvarado WBC NONE SEEN Normal NONE SEEN [facility] Comment on above: Performed By: #### A 1C #### [facility] [address] [place] [address] Dr. Bebeto Alvarado VITAMIN B12on 07-25-2022 Cobalamin (Vitamin B12) [Mass/Vol] 1684.0 pg/mL Critically high 193.0-986.0 [facility] Comment on above: Performed By: #### V ITB12, IRON #### [facility] [address] [place] [address] Dr. Bebeto Alvarado PROF CHEM 8 (BAS METB)on Anion gap [Moles/Vol] 12.2 mmol/L Normal [facility] Comment on above: Performed By: #### B MP #### [facility] [address] [place] [address] Dr. Bebeto Alvarado Calcium [Mass/Vol] 8.9 mg/dL Normal 8.5-10.1 [facility] Comment on above: Performed By: #### B MP #### [facility] [address] [place] [address] Dr. Bebeto Alvarado Chloride [Moles/Vol] 105 mmol/L Normal 98-107 [facility] Comment on above: Performed By: #### B MP #### [facility] [address] [place] [address] Dr. Bebeto Alvarado CO2 [Moles/Vol] 29.6 mmol/L Normal 21.0-32.0 [facility] Comment on above: Performed By: #### B MP #### [facility] [address] [place] [address] Dr. Bebeto Alvarado Creatinine [Mass/Vol] 0.95 mg/dL Normal 0.55-1.02 [facility] Comment on above: Performed By: #### B MP #### [facility] [address] [place] [address] Dr. Bebeto Alvarado EGFR-AF GAMBIAN >60 Normal >=60 [facility] Comment on above: Performed By: #### B MP #### [facility] [address] [address] [address] Bebeto Alvarado EGFR-NON AF GAMBIAN 60 mL/min/1.73m2 Normal >=60 [facility] Comment on above: Performed By: #### B MP #### [facility] [address] [address] [address] Bebeto Alvarado Glucose [Mass/Vol] 101 mg/dL Normal 74-106 [facility] Comment on above: Performed By: #### B MP #### [facility] [address] [place] [address] Dr. Bebeto Alvarado Potassium [Moles/Vol] 3.8 mmol/L Normal 3.5-5.1 [facility] Comment on above: Performed By: #### B MP #### [facility] [address] [address] [address] Bebeto Alvarado Sodium [Moles/Vol] 143 mmol/L Normal 136-145 [facility] Comment on above: Performed By: #### B MP #### [facility] [address] [place] [address] Dr. Bebeto Alvarado Urea nitrogen [Mass/Vol] 16.0 mg/dL Normal 7.0-18.0 [facility] Comment on above: Performed By: #### B MP #### [facility] [address] [address] [address] Bebeto Alvarado Urea nitrogen/Creatinine [Mass ratio] 16.8 mg/mg Normal [facility] Comment on above: Performed By: #### B MP #### [facility] [address] [address] [address] Bebeto Alvarado CBC AUTO DIFFon 11-21-2021 BASO # 0.1 103/ul Normal 0.0-0.1 [facility] Comment on above: Performed By: #### A 1C #### [facility] [address] [place] [address] Dr. Bebeto Alvarado Basophils/100 WBC (Bld) 1.0 % Normal 0.2-2.0 [facility] Comment on above: Performed By: #### A 1C #### [facility] [address] [place] [address] Dr. Bebeto Alvarado EO # 0.2 103/ul Normal 0.0-0.7 [facility] Comment on above: Performed By: #### A 1C #### [facility] [address] [place] [address] Dr. Bebeto Alvarado Eosinophils/100 WBC (Bld) 3.3 % Normal 0.9-7.0 [facility] Comment on above: Performed By: #### A 1C #### [facility] [address] [place] [address] Dr. Bebeto Alvaraod Erythrocyte distribution width (RBC) [Ratio] 13.8 % Normal 11.0-15.0 [facility] Comment on above: Performed By: #### A 1C #### [facility] [address] [place] [address] Dr. Bebeto Alvarado Hematocrit (Bld) [Volume fraction] 38.8 % Normal 36.0-48.0 [facility] Comment on above: Performed By: #### A 1C #### [facility] [address] [place] [address] Dr. eBbeto Alvarado Hemoglobin (Bld) [Mass/Vol] 12.5 g/dL Normal 12.0-16.0 [facility] Comment on above: Performed By: #### A 1C #### [facility] [address] [place] [address] Dr. Bebeto Alvarado IG # 0.02 10e3/ul Normal 0.00-0.03 [facility] Comment on above: Performed By: #### A 1C #### [facility] [address] [place] [address] Dr. Bebeto Alvarado IG % 0.3 % Normal 0.0-0.5 [facility] Comment on above: Performed By: #### A 1C #### [facility] [address] [place] [address] Dr. Bebeto Alvarado LYMPH # 1.9 103/ul Normal 1.2-3.8 [facility] Comment on above: Performed By: #### A 1C #### [facility] [address] [place] [address] Dr. Bebeto Alvarado Lymphocytes/100 WBC (Bld) 29.6 % Normal 20.5-60.0 [facility] Comment on above: Performed By: #### A 1C #### [facility] [address] [place] [address] Dr. Bebeto Alvarado MANUAL DIFF REQ NO Normal [facility] Comment on above: Performed By: #### A 1C #### [facility] [address] [place] [address] Dr. Bebeto Alvarado MCH (RBC) [Entitic mass] 28.0 pg Normal 26.7-34.0 [facility] Comment on above: Performed By: #### A 1C #### [facility] [address] [place] [address] Dr. Bebeto Alvarado MCHC (RBC) [Mass/Vol] 32.2 g/dL Normal 29.9-35.2 [facility] Comment on above: Performed By: #### A 1C #### [facility] [address] [place] [address] Dr. Bebeto Alvarado MCV (RBC) [Entitic vol] 86.8 fL Normal 81.0-99.0 [facility] Comment on above: Performed By: #### A 1C #### [facility] [address] [place] [address] Dr. Bebeto Alvarado MONO # 0.4 103/ul Normal 0.3-0.8 [facility] Comment on above: Performed By: #### A 1C #### [facility] [address] [place] [address] Dr. Bebeto Alvarado Monocytes/100 WBC (Bld) 5.7 % Normal 1.7-12.0 [facility] Comment on above: Performed By: #### A 1C #### [facility] [address] [place] [address] Dr. Bebeto Alvarado NEUT # 3.8 103/ul Normal 1.4-6.5 [facility] Comment on above: Performed By: #### A 1C #### [facility] [address] [address] [address] Bebeto Alvarado Neutrophils/100 WBC (Bld) 60.1 % Normal 43.0-75.0 [facility] Comment on above: Performed By: #### A 1C #### [facility] [address] [address] [address] Bebeto Alvarado Platelet mean volume (Bld) [Entitic vol] 11.0 fL Normal 9.5-13.5 [facility] Comment on above: Performed By: #### A 1C #### [facility] [address] [address] [address] Bebeto Alvarado PLT 264 103/ul Normal 150-450 [facility] Comment on above: Performed By: #### A 1C #### [facility] [address] [place] [address] Dr. Bebeto Alvarado RBC 4.47 106/ul Normal 4.20-5.40 [facility] Comment on above: Performed By: #### A 1C #### [facility] [address] [address] [address] Bebeto Alvarado WBC 6.3 103/ul Normal 4.0-11.0 [facility] Comment on above: Performed By: #### A 1C #### [facility] [address] [address] [address] Bebeto Alvarado GLYCOHEMOGLOBIN A1Con 2021 ADA RECOMMENDATION SEE BELOW Normal [facility] Comment on above: Result Comment: ADA RECOMMENDED LIMIT 4.0 - 6.0 ADA THERAPEUTIC TARGET < 7.0 ACTION SUGGESTED > 7.0 Performed By: #### A 1C #### [facility] [address] [address] [address] Bebeto Alvarado Glucose [Mass/Vol] 105 mg/dL Normal [facility] Comment on above: Performed By: #### A 1C #### [facility] [address] [place] [address] Dr. Bebeto Alvarado HbA1c (Bld) [Mass fraction] 5.3 % Normal 4.5-6.2 [facility] Comment on above: Performed By: #### A 1C #### [facility] [address] [address] [address] Bebeto Alvarado IRONon 11-21-2021 Iron [Mass/Vol] 59.0 ug/dL Normal 50.0-170.0 [facility] Comment on above: Performed By: #### A 1C #### [facility] [address] [address] [address] Bebeto Alvarado LIPID PROFILEon 11-21-2021 CHOL-HDL RATIO NORM SEE BELOW Normal [facility] Comment on above: Result Comment: 3.3 - 4.4 LOW RISK 4.4 - 7.1 AVERAGE RISK 7.1 - 11.0 MODERATE RISK >11.0 HIGH RISK Performed By: #### C MP, LIPID #### [facility] [address] [address] [address] Bebeto Alvarado Cholesterol [Mass/Vol] 139 mg/dL Normal <=200 [facility] Comment on above: Performed By: #### C MP, LIPID #### [facility] [address] [address] [address] Bebeto Alvarado Cholesterol in HDL [Mass/Vol] 35 mg/dL Critically low 40-60 [facility] Comment on above: Performed By: #### C MP, LIPID #### [facility] [address] [address] [address] Bebeto Alvarado Cholesterol in LDL [Mass/Vol] 69.6 mg/dL Normal [facility] Comment on above: Performed By: #### C MP, LIPID #### [facility] [address] [address] [address] Bebeto Alvarado Cholesterol.total/Chol esterol in HDL [Mass ratio] 4.0 {ratio} Normal [facility] Comment on above: Performed By: #### C MP, LIPID #### [facility] [address] [address] [address] Bebeto Alvarado HDL NORMAL > or = 60 mg/dl - LO W CARDIOVASCULAR RISK <40 mg/dl - HIGH CARDIOVASCULAR RISK Normal [facility] Comment on above: Performed By: #### C MP, LIPID #### [facility] [address] [place] [address] Dr. Bebeto Alvarado LDL CALC NORMAL SEE BELOW Normal [facility] Comment on above: Result Comment: <100 mg/dl OPTIMAL 100 - 129 mg/dl NEAR OR ABOVE OPTIMAL 130 - 159 mg/dl BORDERLINE HIGH 160 - 189 mg/dl HIGH >190 mg/dl VERY HIGH Performed By: #### C MP, LIPID #### [facility] [address] [place] [address] Dr. Bebeto Alvarado Triglyceride [Mass/Vol] 172 mg/dL Critically high <=150 [facility] Comment on above: Performed By: #### C MP, LIPID #### [facility] [address] [place] [address] Dr. Bebeto Alvarado VLDL CALC 34.4 mg/dL Normal [facility] Comment on above: Performed By: #### C MP, LIPID #### [facility] [address] [place] [address] Dr. Bebeto Alvarado PROF 14(COMP METB)on 022 Albumin [Mass/Vol] 3.8 g/dL Normal 3.4-5.0 [facility] Comment on above: Performed By: #### C MP, LIPID #### [facility] [address] [place] [address] Dr. Bebeto Alvarado Albumin/Globulin [Mass ratio] 1.1 {ratio} Normal [facility] Comment on above: Performed By: #### C MP, LIPID #### [facility] [address] [place] [address] Dr. Bebeto Alvarado ALP [Catalytic activity/Vol] 96 U/L Normal 46-116 [facility] Comment on above: Performed By: #### C MP, LIPID #### [facility] [address] [place] [address] Dr. Bebeto Alvarado ALT [Catalytic activity/Vol] 25 U/L Normal 14-59 [facility] Comment on above: Performed By: #### C MP, LIPID #### [facility] [address] [place] [address] Dr. Bebeto Alvarado Anion gap [Moles/Vol] 11.8 mmol/L Normal [facility] Comment on above: Performed By: #### C MP, LIPID #### [facility] [address] [place] [address] Dr. Bebeto Alvarado AST [Catalytic activity/Vol] 20 U/L Normal 15-37 [facility] Comment on above: Performed By: #### C MP, LIPID #### [facility] [address] [place] [address] Dr. Bebeto Alvarado Bilirubin [Mass/Vol] 0.4 mg/dL Normal 0.2-1.0 [facility] Comment on above: Performed By: #### C MP, LIPID #### [facility] [address] [place] [address] Dr. Bebeto Alvarado Calcium [Mass/Vol] 8.8 mg/dL Normal 8.5-10.1 [facility] Comment on above: Performed By: #### C MP, LIPID #### [facility] [address] [place] [address] Dr. Bebeto Alvarado Chloride [Moles/Vol] 106 mmol/L Normal 98-107 [facility] Comment on above: Performed By: #### C MP, LIPID #### [facility] [address] [place] [address] Dr. Bebeto Alvarado CO2 [Moles/Vol] 27.0 mmol/L Normal 21.0-32.0 [facility] Comment on above: Performed By: #### C MP, LIPID #### [facility] [address] [place] [address] Dr. Bebeto Alvarado Creatinine [Mass/Vol] 0.97 mg/dL Normal 0.55-1.02 [facility] Comment on above: Performed By: #### C MP, LIPID #### [facility] [address] [place] [address] Dr. Bebeto Alvarado EGFR-AF GAMBIAN >60 Normal >=60 [facility] Comment on above: Performed By: #### C MP, LIPID #### [facility] [address] [place] [address] Dr. Bebeto Alvarado EGFR-NON AF GAMBIAN 59 mL/min/1.73m2 Critically low >=60 [facility] Comment on above: Performed By: #### C MP, LIPID #### [facility] [address] [place] [address] Dr. Bebeto Alvarado Globulin (S) [Mass/Vol] 3.4 g/dL Normal [facility] Comment on above: Performed By: #### C MP, LIPID #### [facility] [address] [place] [address] Dr. Bebeto Alvarado Glucose [Mass/Vol] 103 mg/dL Normal 74-106 [facility] Comment on above: Performed By: #### C MP, LIPID #### [facility] [address] [place] [address] Dr. Bebeto Alvarado Potassium [Moles/Vol] 3.8 mmol/L Normal 3.5-5.1 [facility] Comment on above: Performed By: #### C MP, LIPID #### [facility] [address] [place] [address] Dr. Bebeto Alvarado Protein [Mass/Vol] 7.2 g/dL Normal 6.4-8.2 [facility] Comment on above: Performed By: #### C MP, LIPID #### [facility] [address] [place] [address] Dr. Bebeto Alvarado Sodium [Moles/Vol] 141 mmol/L Normal 136-145 [facility] Comment on above: Performed By: #### C MP, LIPID #### [facility] [address] [place] [address] Dr. Bebeto Alvarado Urea nitrogen [Mass/Vol] 11.0 mg/dL Normal 7.0-18.0 [facility] Comment on above: Performed By: #### C MP, LIPID #### [facility] [address] [place] [address] Dr. Bebeto Alvarado Urea nitrogen/Creatinine [Mass ratio] 11.3 mg/mg Normal [facility] Comment on above: Performed By: #### C MP, LIPID #### [facility] [address] [place] [address] Dr. Bebeto Alvarado URIC ACID SERUMon 11-21-2021 Urate [Mass/Vol] 7.3 mg/dL Critically high 2.6-6.0 [facility] Comment on above: Performed By: #### A 1C #### [facility] [address] [address] [address] Bebeto Alvarado VITAMIN B12on 11-21-2021 Cobalamin (Vitamin B12) [Mass/Vol] 2123.0 pg/mL Critically high 193.0-986.0 [facility] Comment on above: Performed By: #### A 1C #### [facility] [address] [address] [address] Bebeto Alvarado Physician Referralon 022 Physician Referral [phone] [id number] Normal [facility] KNEE RIGHT 1 OR 2 VWSon KNEE RIGHT 1 OR 2 VWS [facility] Department of Radiology [address] [place] [id number] ======== Patient Name: MICHELLE BE : [...] Electronically signed by:Debra Del Cid. Transcribed by: [email or web address], User Resident: Electronically Signed by: DEBRA DEL CID @ 02/08/2019 11:16 AM Normal [facility] Comment on above: Order Comment: , Mabel ws (X-RAY, KNEE): Radiologic Protocol , Weight Bearing?: N , With or Without Brace/Cast/Collar: With , Views (X-RAY, KNEE): Radiologic Protocol , Weight Bearing?: N , With or Without Brace/Cast/Collar: With , , , Ordering Provider - AHSAN BINGHAM PA-C , KNEE RIGHT 1 OR 2 Son KNEE RIGHT 1 OR 2 S [facility] Department of Radiology [address] [place] [phone] ======== Patient Name: MICHELLE BE : 1960 Sex: F Age: Race: White Pt. Location: 84 Patient Status: Ordered Date: 12/07/2018 10:20:00 AM Completed Date: 12/07/2018 10:20 AM Requesting Provider: AHSAN BINGHAM Attending Provider: Report Copy To: Signs & Symptoms: S82.001A Unsp fracture of right patella, init for clos fx I10 History: Wayan Comments: , , , Ordering Provider - [...] complications. Electronically signed by:Tomasz Stoll. Transcribed by: [email or web address], User Resident: Electronically Signed by: TOMASZ STOLL @ 12/07/2018 11:14 AM Normal [facility] Comment on above: Order Comment: , Vie ws (X-RAY, KNEE): Radiologic Protocol , Weight Bearing?: N , With or Without Brace/Cast/Collar: With , Views (X-RAY, KNEE): Radiologic Protocol , Weight Bearing?: N , With or Without Brace/Cast/Collar: With , , , Ordering Provider - AHSAN BINGHAM PA-C , KNEE RIGHT 1 OR 2 VWSon KNEE RIGHT 1 OR 2 S [facility] Department of Radiology [address] [place] [phone] ======== Patient Name: MICHELLE BE : 1960 Sex: F Age: Race: White Pt. 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 Transcribed by: [email or web address], User Resident: Electronically Signed by: ANUP ELLISON @ 10/06/2018 02:48 PM Normal [facility] Comment on above: Order Comment: , Vie ws (X-RAY, KNEE): Radiologic Protocol , Weight Bearing?: N , With or Without Brace/Cast/Collar: With , Views (X-RAY, KNEE): Radiologic Protocol , Weight Bearing?: N , With or Without Brace/Cast/Collar: With , , , Ordering Provider - AHSAN BINGHAM PA-C , KNEE RIGHT 1 OR 2 [facility] 08-05 KNEE RIGHT 1 OR 2 S [facility] Department of Radiology [address] [place] [phone] ======== Patient Name: MICHELLE BE : 1960 Sex: F Age: Race: White Pt. Location: 84 Patient Status: Ordered Date: 08/26/2018 2:30:00 PM Completed Date: 08/26/2018 02:54 PM Requesting Provider: AHSAN BINGHAM Attending Provider: Report Copy To: Signs & Symptoms: S82.001A Unsp fracture of right patella, init for clos fx I10 History: Wayan Comments: , , , Ordering Provider - [...] effusion Electronically signed by:Anup Ellison. Transcribed by: [email or web address], User Resident: Electronically Signed by: ANUP ELLISON @ 08/26/2018 04:56 PM Normal [facility] Comment on above: Order Comment: , Mabel ws (X-RAY, KNEE): Radiologic Protocol , Weight Bearing?: N , With or Without Brace/Cast/Collar: With , Views (X-RAY, KNEE): Radiologic Protocol , Weight Bearing?: N , With or Without Brace/Cast/Collar: With , , , Ordering Provider - AHSAN BINGHAM PA-C , KNEE RIGHT 1 OR 2 VWSon 07-06 KNEE RIGHT 1 OR 2 VWS [facility] Department of Radiology [address] [place] [phone] ======== Patient Name: MICHELLE BE : 1960 Sex: F Age: Race: White Pt. Location: Patient Status: Ordered Date: 07/29/2018 2:10:00 PM Completed Date: 07/29/2018 02:12 PM Requesting Provider: AHSAN BINGHAM Attending Provider: Report Copy To: Signs & Symptoms: S82.001A Unsp fracture of right patella, init for clos fx I10 History: Wayan Comments: , , , Ordering Provider - [...] compartment Electronically signed by:Anup Ellison. Transcribed by: [email or web address], User Resident: Electronically Signed by: ANUP ELLISON @ 07/29/2018 03:41 PM Normal [facility] Comment on above: Order Comment: , Vie ws (X-RAY, KNEE): Radiologic Protocol , Weight Bearing?: N , With or Without Brace/Cast/Collar: With , Views (X-RAY, KNEE): Radiologic Protocol , Weight Bearing?: N , With or Without Brace/Cast/Collar: With , , , Ordering Provider - AHSAN BINGHAM PA-C , KNEE RIGHT 3 [facility] 9 KNEE RIGHT 3 [facility] Department of Radiology [address] [place] [phone] ======== Patient Name: MICHELLE BE : [...] knee Electronically signed by:Anup Ellison. Transcribed by: [email or web address], User Resident: Electronically Signed by: ANUP ELLISON @ 07/15/2018 03:31 PM Normal [facility] Comment on above: Order Comment: , Vie ws (X-RAY, KNEE): Radiologic Protocol , Weight Bearing?: N , With or Without Brace/Cast/Collar: With , Views (X-RAY, KNEE): Radiologic Protocol , Weight Bearing?: N , With or Without Brace/Cast/Collar: With , , , Ordering Provider - AHSAN BINGHAM PA-C , Operative Reporton 9 Operative Report MR#: [id number] [facility] Pt. Name: Michelle Be Room [...] Duarte MD Date Trans: 07/03/2018 04:28 Monse/terry [id number] Normal [facility] *ANAEROBIC CULTUREon 019 *ANAEROBIC CULTURE Clinical Report: (D) Specimen/Source: SWAB/RT KNEE Collected: 07/02/2018 13:53 Status: Final Last Updated: 07/07/2018 08:02 CULT RES (Final) No Anaerobes Isolated 5 Days Normal [facility] Comment on above: Performed By: #### 3 0312 #### [place] [address] [address] *WOUND CULTUREon 07-02-2018 *WOUND CULTURE Clinical Report: (D) Specimen/Source: WOUND/INTRAOP SPEC Collected: 07/02/2018 13:53 Status: Final Last Updated: 07/07/2018 10:13 (1) #1 RT KNEE GRAM (Final) Rare Polys No Bacteria Seen CULT RES (Final) No Growth Day 5 Normal [facility] Comment on above: Order Comment: #1 RT KNEE Performed By: #### 3 0343 #### [address] [address], [facility] KNEE RIGHT 1 OR 2 VWSon 06-05 KNEE RIGHT 1 OR 2 S [facility] Department of Radiology [address] [place] [phone] ======== Patient Name: MICHELLE BE : [...] Electronically signed by:Debra Del Cid. Transcribed by: [email or web address], User Resident: Electronically Signed by: DEBRA DEL CID @ 07/02/2018 02:03 PM Normal [facility] Comment on above: Order Comment: ORIF VS PERCUTANEOUS FIXATION RIGHT PATELLA POC GLUCOSE LABon 07-02-2018 Glucose [Mass/Vol] 108 mg/dL High 70-100 [facility] Comment on above: Performed By: #### 8 5499 #### [facility] [address] [place] [address], [facility] APTTon 06-30-2018 aPTT Coag (Bld) [Time] 30.6 s Normal 25.0-35.0 [facility] Comment on above: Result Comment: [...] THIS PURPOSE. Performed By: #### 5 6101, 74818 #### [facility] [address] [place] [address], [facility] BASIC METABOLIC PANELon 06-05 Calcium [Mass/Vol] 9.7 mg/dL Normal 8.6-10.3 [facility] Comment on above: Performed By: #### 0 0071 #### [facility] [address] [place] [address], [facility] Chloride [Moles/Vol] 102 mmol/L Normal 98-107 [facility] Comment on above: Performed By: #### 0 0071 #### [facility] [address] [facility] [address], [facility] CO2 [Moles/Vol] 28 mmol/L Normal 21-31 [facility] Comment on above: Performed By: #### 0 0071 #### [facility] [address] [place] [address], [facility] Creatinine [Mass/Vol] 1.20 mg/dL Normal 0.60-1.20 [facility] Comment on above: Performed By: #### 0 0071 #### [facility] [address] [place] [address], [place] GFR/1.73 sq M predicted among blacks MDRD (S/P/Bld) [Vol rate/Area] 56 ml/min/1.73sq m Abnormal >60 [facility] Comment on above: Performed By: #### 0 0071 #### [facility] [address] [place] [address], [place] GFR/1.73 sq M predicted among non-blacks MDRD (S/P/Bld) [Vol rate/Area] 47 ml/min/1.73sq m Abnormal >60 [facility] Comment on above: Performed By: #### 0 0071 #### [facility] [address] [place] [address], [place] Glucose [Mass/Vol] 97 mg/dL Normal 70-100 [facility] Comment on above: Performed By: #### 0 0071 #### [facility] [address] [place] [address], [place] Potassium [Moles/Vol] 4.1 mmol/L Normal 3.5-5.1 [facility] Comment on above: Performed By: #### 0 0071 #### [facility] [address] [place] [address], [place] Sodium [Moles/Vol] 137 mmol/L Normal 136-145 [facility] Comment on above: Performed By: #### 0 0071 #### [facility] [address] [place] [address], [place] Urea nitrogen [Mass/Vol] 19 mg/dL Normal 7-25 [facility] Comment on above: Performed By: #### 0 0071 #### [facility] [address] CBC W/DIFFon 06-30-2018 ABS BASOPHILS 0.1 10*3/uL Normal 0.0-0.2 [facility] Comment on above: Performed By: #### 5 0103 #### [facility] [address] ABS IMM GRANS 0.0 10*3/uL Normal 0.0-0.2 [facility] Comment on above: Performed By: #### 5 0103 #### [facility] [address] ABS NEUTROPHILS 6.4 10*3/uL Normal 1.6-7.6 [facility] Comment on above: Performed By: #### 5 0103 #### [facility] [address] Basophils/100 WBC (Bld) 0.7 % Normal 0.0-1.0 [facility] Comment on above: Performed By: #### 5 0103 #### [facility] [address] Eosinophils (Bld) [#/Vol] 0.2 10*3/uL Normal 0.0-0.5 [facility] Comment on above: Performed By: #### 5 0103 #### [facility] [address] [place] [address], [facility] Eosinophils/100 WBC (Bld) 1.5 % Normal 0.0-6.0 [facility] Comment on above: Performed By: #### 5 0103 #### [facility] [address] Erythrocyte distribution width (RBC) [Ratio] 14.4 % Normal 11.5-15.0 [facility] Comment on above: Performed By: #### 5 0103 #### [facility] [address] Hematocrit (Bld) [Volume fraction] 40.6 % Normal 36.0-45.0 [facility] Comment on above: Performed By: #### 5 0103 #### [facility] [address] Hemoglobin (Bld) [Mass/Vol] 13.3 g/dL Normal 12.0-15.0 [facility] Comment on above: Performed By: #### 0103 #### [facility] [address] IMMATURE GRANS 0.4 % Normal 0.0-1.0 [facility] Comment on above: Performed By: #### 102 #### [facility] [address] Lymphocytes (Bld) [#/Vol] 2.6 10*3/uL Normal 1.2-4.0 [facility] Comment on above: Performed By: #### 3 #### [facility] [address] Lymphocytes/100 WBC (Bld) 26.5 % Normal 20.0-45.0 [facility] Comment on above: Performed By: #### 3 #### [facility] [address] MCH (RBC) [Entitic mass] 27.4 pg Normal 27.0-33.0 [facility] Comment on above: Performed By: #### 5 3 #### [facility] [address] [place] [address], [facility] MCHC (RBC) [Mass/Vol] 32.8 g/dL Normal 32.0-35.0 [facility] Comment on above: Performed By: #### 3 #### [facility] [address] [place] [address], [facility] MCV (RBC) [Entitic vol] 83.5 fL Normal 82.0-98.0 [facility] Comment on above: Performed By: #### 5 0103 #### [facility] [address] [place] [address], [facility] Monocytes (Bld) [#/Vol] 0.5 10*3/uL Normal 0.1-1.0 [facility] Comment on above: Performed By: #### 5 0103 #### [facility] [address] [facility] [place] [address], [facility] MONOS 5.0 % Normal 5.0-12.0 [facility] Comment on above: Performed By: #### 3 #### [facility] [address] [place] [id number], [facility] Neutrophils/100 WBC (Bld) 65.9 % Normal 40.0-72.0 [facility] Comment on above: Performed By: #### 102 #### [facility] [address] [facility] [address] [address] [place] [id number], [facility] Nucleated RBC/100 WBC (Bld) [Ratio] 0 % Normal 0-0 [facility] Comment on above: Performed By: #### 102 #### [facility] [address] [place] [address], [facility] PLAT CNT 290 10*3/uL Normal 150-400 [facility] Comment on above: Performed By: #### 5 3 #### [facility] [address] [place] [address], [facility] RBC (Bld) [#/Vol] 4.86 10*6/uL Normal 3.80-5.00 [facility] Comment on above: Performed By: #### 102 #### [facility] [address] [place] [address], [facility] WBC (Bld) [#/Vol] 9.68 10*3/uL Normal 4.00-10.60 [facility] Comment on above: Performed By: #### 5 0103 #### [address] [place] [address] [place] [address], [facility] KNEE RIGHT 1 OR 2 VWSon 06-05 KNEE RIGHT 1 OR 2 VWS [facility] Department of Radiology [address] [facility] [place] [phone] ======== Patient Name: MICHELLE BE : 1960 Sex: F Age: Race: White Pt. 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 Transcribed by: [email or web address], User Resident: Electronically Signed by: DEBRA DEL CID @ 06/30/2018 11:52 AM Normal [facility] Comment on above: Order Comment: , [...] 0.98 {INR} Normal 0.91-1.[address] [facility] Comment on above: Result Comment: ACCC [...] CHEST 1995;108:231S-246S. Performed By: #### 5 6101, [address] #### [address] PT Coag (PPP) [Time] 13.0 s Normal 12.3-14.8 [facility] Comment on above: Result Comment: ALL RESULTS MUST BE INTERPRETED WITH RESPECT TO BLOOD DRAWING ARTIFACT OR DILUTION ERROR OF ANTICOAGULANT AT THE TIME OF SAMPLING. Performed By: #### 5 6101, [address] #### [address] KNEE RIGHT 3 [facility] 9 KNEE RIGHT 3 S [facility] Department of Radiology [address] [place] [phone] ======== Patient Name: MICHELLE BE : 1960 Sex: F Age: Race: White Pt. Location: Patient Status: O Ordered Date: 06/15/2018 1:35:00 PM Completed Date: 06/15/2018 01:34 PM Requesting Provider: AMPARO ZHANG Attending Provider: AMPARO ZHANG Report Copy To: ADELAIDA CARRION Signs & Symptoms: M17.11 Unilateral primary osteoarthritis, right knee I10 History: Wayan Comments: , Weight Bearing?: Y , Weight [...] effusion Electronically signed by:Anup Ellison. Transcribed by: [email or web address], User Resident: Electronically Signed by: ANUP ELLISON @ 06/15/2018 03:50 PM Normal [facility] Comment on above: Order Comment: , Isaiah ght Bearing?: Y , Weight Bearing?: Y , , , Ordering Mariela ZHANG PA-C , Vital Signs Date Time Vital Sign Value Performing Clinician Facility 11-18-2024 09:52-0400 Body height 162.6 cm Harrison Hoyos DO Work Phone: [facility] 11-18-2024 09:52-0400 Body mass index (BMI) [Ratio] 47.55 kg/m2 Harrison Pocos DO Work Phone: [facility] 11-18-2024 09:52-0400 Body weight 125.65 kg Harrison Pocos DO Work Phone: [facility] 11-14-2024 10:16-0400 Body mass index (BMI) [Ratio] 47.62 kg/m2 Adelaida Sheyla [employer] MODELING ENGINEER Work Phone: [facility] 11-14-2024 10:16-0400 Body temperature 97.81 [degF] Adelaida Kelsiez [employer] MODELING ENGINEER Work Phone: [facility] 11-14-2024 10:16-0400 Body weight 125.83 kg Adelaida Sousabob [employer] MODELING ENGINEER Work Phone: [facility] 11-14-2024 10:16-0400 Diastolic blood pressure 84 mm[Hg] Adelaida Healissaz [employer] MODELING ENGINEER Work Phone: [facility] [facility] 10:16-0400 Heart rate 70 /min Adelaida Kelsiez HYDRAULIC MODELING ENGINEER Work Phone: [facility] 11-14-2024 10:16-0400 Respiratory rate 20 /min Adelaidamonse Sousaholz HYDRAULIC MODELING ENGINEER Work Phone: [facility] 11-14-2024 10:16-0400 SaO2% (BldA) [Mass fraction] 98 % Adelaida Kelsiez HYDRAULIC MODELING ENGINEER Work Phone: [facility] 11-14-2024 10:16-0400 Systolic blood pressure 124 mm[Hg] Adelaida Merryholz HYDRAULIC MODELING ENGINEER Work Phone: [facility] 10-27-2024 10:05-0400 Body height 162.6 cm Harrison Pocos DO Work Phone: [facility] 10-27-2024 10:05-0400 Body mass index (BMI) [Ratio] 47.55 kg/m2 Harrison Pocos DO Work Phone: [facility] 10-27-2024 10:05-0400 Body weight 125.65 kg Harrison Hoyos DO Work Phone: [facility] 10-13-2024 08:42-0400 Body mass index (BMI) [Ratio] 48.75 kg/m2 Adelaida Kelsiez HYDRAULIC MODELING ENGINEER Work Phone: [facility] 10-13-2024 08:42-0400 Body temperature 98.49 [degF] Adelaida Aichholz HYDRAULIC MODELING ENGINEER Work Phone: [facility] 10-13-2024 08:42-0400 Body weight 128.82 kg Adelaida Aichholz HYDRAULIC MODELING ENGINEER Work Phone: [facility] 10-13-2024 08:42-0400 Diastolic blood pressure 80 mm[Hg] Adelaida Yinghholz HYDRAULIC MODELING ENGINEER Work Phone: [facility] 10-13-2024 08:42-0400 Heart rate 85 /min Adelaida Yinghholz HYDRAULIC MODELING ENGINEER Work Phone: [facility] 10-13-2024 08:42-0400 Respiratory rate 20 /min Adelaida Aichholz HYDRAULIC MODELING ENGINEER Work Phone: [facility] 10-13-2024 08:42-0400 SaO2% (BldA) [Mass fraction] 95 % Adelaida Merryholz HYDRAULIC MODELING ENGINEER Work Phone: [facility] 10-13-2024 08:42-0400 Systolic blood pressure 132 mm[Hg] Adelaida Yinghholz HYDRAULIC MODELING ENGINEER Work Phone: [facility] 08-16-2024 11:25-0400 Body mass index (BMI) [Ratio] 48.23 kg/m2 Adelaida Aichholz HYDRAULIC MODELING ENGINEER Work Phone: [facility] 08-16-2024 11:25-0400 Body temperature 98.49 [degF] Adelaida Yinghholz HYDRAULIC MODELING ENGINEER Work Phone: [facility] 08-16-2024 11:25-0400 Body weight 127.46 kg Adelaida Merryholz HYDRAULIC MODELING ENGINEER Work Phone: [facility] 08-16-2024 11:25-0400 Diastolic blood pressure 82 mm[Hg] Adelaida Aichholz HYDRAULIC MODELING ENGINEER Work Phone: [facility] 08-16-2024 11:25-0400 Heart rate 67 /min Adelaida Aichholz HYDRAULIC MODELING ENGINEER Work Phone: [facility] 08-16-2024 11:25-0400 Respiratory rate 18 /min Adelaida Aichholz HYDRAULIC MODELING ENGINEER Work Phone: [facility] 08-16-2024 11:25-0400 SaO2% (BldA) [Mass fraction] 97 % Adelaida Aichholz HYDRAULIC MODELING ENGINEER Work Phone: [facility] 08-16-2024 11:25-0400 Systolic blood pressure 120 mm[Hg] Adelaida Aichholz HYDRAULIC MODELING ENGINEER Work Phone: [facility] 07-27-2024 11:16-0400 Body mass index (BMI) [Ratio] 50.67 kg/m2 Adelaida Aichholz HYDRAULIC MODELING ENGINEER Work Phone: [facility] 07-27-2024 11:16-0400 Body temperature 98.8 [degF] Adelaida Yinghholz HYDRAULIC MODELING ENGINEER Work Phone: [facility] 07-27-2024 11:16-0400 Body weight 133.9 kg Adelaida Aichholz HYDRAULIC MODELING ENGINEER Work Phone: [facility] 07-27-2024 11:16-0400 Diastolic blood pressure 86 mm[Hg] Adelaida Aichholz HYDRAULIC MODELING ENGINEER Work Phone: [facility] 07-27-2024 11:16-0400 Heart rate 82 /min Adelaida Aichholz HYDRAULIC MODELING ENGINEER Work Phone: [facility] 07-27-2024 11:16-0400 Respiratory rate 24 /min Adelaida Aichholz HYDRAULIC MODELING ENGINEER Work Phone: [facility] 07-27-2024 11:16-0400 SaO2% (BldA) [Mass fraction] 97 % Adelaida Carrion HYDRAULIC MODELING ENGINEER Work Phone: [facility] 07-27-2024 11:16-0400 Systolic blood pressure 124 mm[Hg] Adelaida Carrion HYDRAULIC MODELING ENGINEER Work Phone: [facility] 07-26-2024 10:48-0400 Body height 162.6 cm Juany Lowe PA Work Phone: [facility] 07-26-2024 10:48-0400 Body mass index (BMI) [Ratio] 50.98 kg/m2 Juany Lowe PA Work Phone: [facility] 07-26-2024 10:48-0400 Body weight 134.72 kg Juany Lowe PA Work Phone: [facility] 07-26-2024 10:48-0400 Diastolic blood pressure 84 mm[Hg] Juany Lowe PA Work Phone: [facility] 07-26-2024 10:48-0400 Systolic blood pressure 126 mm[Hg] Juany Lowe PA Work Phone: [facility] 05-24-2024 08:19-0500 Body height 162.6 cm Juany Lowe PA Work Phone: [facility] 05-24-2024 08:19-0500 Body mass index (BMI) [Ratio] 50.29 kg/m2 Juany Lowe PA Work Phone: [facility] 05-24-2024 08:19-0500 Body weight 132.9 kg Juany Lowe PA Work Phone: [facility] 05-24-2024 08:19-0500 Diastolic blood pressure 72 mm[Hg] Juany Lowe PA Work Phone: [facility] 05-24-2024 08:19-0500 Heart rate 62 /min Juany Lowe PA Work Phone: [facility] 05-24-2024 08:19-0500 Respiratory rate 16 /min Juany Lowe PA Work Phone: [facility] 05-24-2024 08:19-0500 SaO2% (BldA) [Mass fraction] 100 % Juany Leggett PA Work Phone: [facility] 05-24-2024 08:19-0500 Systolic blood pressure 110 mm[Hg] Juany Leggett PA Work Phone: [facility] 05-12-2024 10:04-0500 Body height 162.6 cm Adelaida Aichholz HYDRAULIC MODELING ENGINEER Work Phone: [facility] 05-12-2024 10:04-0500 Body mass index (BMI) [Ratio] 49.16 kg/m2 Adelaida Aichholz HYDRAULIC MODELING ENGINEER Work Phone: [facility] 05-12-2024 10:04-0500 Body temperature 98.49 [degF] Adelaida Aichholz HYDRAULIC MODELING ENGINEER Work Phone: [facility] 05-12-2024 10:04-0500 Body weight 129.91 kg Adelaida Aichholz HYDRAULIC MODELING ENGINEER Work Phone: [facility] 05-12-2024 10:04-0500 Diastolic blood pressure 78 mm[Hg] Adelaida Aichholz HYDRAULIC MODELING ENGINEER Work Phone: [facility] 05-12-2024 10:04-0500 Heart rate 80 /min Adelaida Aichholz HYDRAULIC MODELING ENGINEER Work Phone: [facility] 05-12-2024 10:04-0500 Respiratory rate 20 /min Adelaida Aichholz HYDRAULIC MODELING ENGINEER Work Phone: [facility] 05-12-2024 10:04-0500 SaO2% (BldA) [Mass fraction] 98 % Adelaida Aichholz HYDRAULIC MODELING ENGINEER Work Phone: [facility] 05-12-2024 10:04-0500 Systolic blood pressure 118 mm[Hg] Adelaida Aichholz HYDRAULIC MODELING ENGINEER Work Phone: [facility] 03-16-2024 09:53-0500 Body height 162.6 cm Adelaida Aichholz HYDRAULIC MODELING ENGINEER Work Phone: [facility] 03-16-2024 09:53-0500 Body mass index (BMI) [Ratio] 48.41 kg/m2 Adelaida Carrion HYDRAULIC MODELING ENGINEER Work Phone: [facility] 03-16-2024 09:53-0500 Body temperature 98.01 [degF] Adelaida Carrion HYDRAULIC MODELING ENGINEER Work Phone: [facility] 03-16-2024 09:53-0500 Body weight 127.91 kg Adelaida Iglesiasz HYDRAULIC MODELING ENGINEER Work Phone: [facility] 03-16-2024 09:53-0500 Diastolic blood pressure 80 mm[Hg] Adelaida Iglesiasz HYDRAULIC MODELING ENGINEER Work Phone: [facility] 03-16-2024 09:53-0500 Heart rate 79 /min Adelaidamonse Iglesiasz HYDRAULIC MODELING ENGINEER Work Phone: [facility] 03-16-2024 09:53-0500 Respiratory rate 18 /min Adelaida Carrion HYDRAULIC MODELING ENGINEER Work Phone: [facility] 03-16-2024 09:53-0500 SaO2% (BldA) [Mass fraction] 98 % Adelaida Carrion HYDRAULIC MODELING ENGINEER Work Phone: [facility] 03-16-2024 09:53-0500 Systolic blood pressure 120 mm[Hg] Adelaida Iglesiasz HYDRAULIC MODELING ENGINEER Work Phone: [facility] 03-10-2024 15:20-0500 Body height 162.6 cm Rachel REDDY Work Phone: [facility] 03-10-2024 15:20-0500 Body mass index (BMI) [Ratio] 48.41 kg/m2 Rachel REDDY Work Phone: [facility] 03-10-2024 15:20-0500 Body weight 127.91 kg Rachel Sahni PA Work Phone: [facility] 03-10-2024 15:20-0500 Diastolic blood pressure 68 mm[Hg] Rachel Sahni PA Work Phone: [facility] 03-10-2024 15:20-0500 Heart rate 74 /min Rachel Hill PA Work Phone: [facility] 03-10-2024 15:20-0500 Respiratory rate 16 /min Rachel Hill PA Work Phone: [facility] 03-10-2024 15:20-0500 SaO2% (BldA) [Mass fraction] 98 % Rachel Hill PA Work Phone: [facility] 03-10-2024 15:20-0500 Systolic blood pressure 102 mm[Hg] Rachel Hill PA Work Phone: [facility] 03-01-2024 12:48-0500 Body height 162.6 cm Juany Lowe PA Work Phone: [facility] 03-01-2024 12:48-0500 Body mass index (BMI) [Ratio] 48.92 kg/m2 Juany Lowe PA Work Phone: [facility] 03-01-2024 12:48-0500 Body weight 129.28 kg Juany Lowe PA Work Phone: [facility] 03-01-2024 12:48-0500 Diastolic blood pressure 88 mm[Hg] Juany Lowe PA Work Phone: [facility] 03-01-2024 12:48-0500 Systolic blood pressure 140 mm[Hg] Juany Lowe PA Work Phone: [facility] 02-16-2024 11:18-0500 Body height 162.6 cm Adelaida Carrion HYDRAULIC MODELING ENGINEER Work Phone: [facility] 02-16-2024 11:18-0500 Body mass index (BMI) [Ratio] 50.77 kg/m2 Adelaida Carrion HYDRAULIC MODELING ENGINEER Work Phone: [facility] 02-16-2024 11:18-0500 Body temperature 98.49 [degF] Adelaida Carrion HYDRAULIC MODELING ENGINEER Work Phone: [facility] 02-16-2024 11:18-0500 Body weight 134.17 kg Adelaida Iglesiasz HYDRAULIC MODELING ENGINEER Work Phone: [facility] 02-16-2024 11:18-0500 Diastolic blood pressure 82 mm[Hg] Adelaida Yinghholz HYDRAULIC MODELING ENGINEER Work Phone: [facility] 02-16-2024 11:18-0500 Heart rate 69 /min Adelaida Aichholz HYDRAULIC MODELING ENGINEER Work Phone: [facility] 02-16-2024 11:18-0500 Respiratory rate 20 /min Adelaida Yinghholz HYDRAULIC MODELING ENGINEER Work Phone: [facility] 02-16-2024 11:18-0500 SaO2% (BldA) [Mass fraction] 98 % Adelaida Yinghholz HYDRAULIC MODELING ENGINEER Work Phone: [facility] 02-16-2024 11:18-0500 Systolic blood pressure 122 mm[Hg] Adelaida Aichholz HYDRAULIC MODELING ENGINEER Work Phone: [facility] 01-28-2024 13:46-0400 Body height 162.6 cm Adelaida Yinghholz HYDRAULIC MODELING ENGINEER Work Phone: [facility] 01-28-2024 13:46-0400 Body mass index (BMI) [Ratio] 48.99 kg/m2 Adelaida Yinghholz HYDRAULIC MODELING ENGINEER Work Phone: [facility] 01-28-2024 13:46-0400 Body temperature 98.71 [degF] Adelaida Yinghholz HYDRAULIC MODELING ENGINEER Work Phone: [facility] 01-28-2024 13:46-0400 Body weight 129.46 kg Adelaida Yinghholz HYDRAULIC MODELING ENGINEER Work Phone: [facility] 01-28-2024 13:46-0400 Diastolic blood pressure 78 mm[Hg] Adelaida Aichholz HYDRAULIC MODELING ENGINEER Work Phone: [facility] 01-28-2024 13:46-0400 Heart rate 81 /min Adelaida Aichholz HYDRAULIC MODELING ENGINEER Work Phone: [facility] 01-28-2024 13:46-0400 Respiratory rate 18 /min Adelaida Yinghholz HYDRAULIC MODELING ENGINEER Work Phone: [facility] 01-28-2024 13:46-0400 SaO2% (BldA) [Mass fraction] 99 % Adelaida Merryholz HYDRAULIC MODELING ENGINEER Work Phone: [facility] 01-28-2024 13:46-0400 Systolic blood pressure 110 mm[Hg] Adelaida Merryholz HYDRAULIC MODELING ENGINEER Work Phone: [facility] 01-04-2024 09:39-0400 Body height 162.6 cm Adelaida Merryholz HYDRAULIC MODELING ENGINEER Work Phone: [facility] 01-04-2024 09:39-0400 Body mass index (BMI) [Ratio] 48.75 kg/m2 Adelaida Merryholz HYDRAULIC MODELING ENGINEER Work Phone: [facility] 01-04-2024 09:39-0400 Body temperature 97.81 [degF] Adelaida Merryholz HYDRAULIC MODELING ENGINEER Work Phone: [facility] 01-04-2024 09:39-0400 Body weight 128.82 kg Adelaida Yinghholz HYDRAULIC MODELING ENGINEER Work Phone: [facility] 01-04-2024 09:39-0400 Diastolic blood pressure 78 mm[Hg] Adelaida Merryholz HYDRAULIC MODELING ENGINEER Work Phone: [facility] 01-04-2024 09:39-0400 Heart rate 67 /min Adelaida Merryholz HYDRAULIC MODELING ENGINEER Work Phone: [facility] 01-04-2024 09:39-0400 Respiratory rate 19 /min Adelaida Merryholz HYDRAULIC MODELING ENGINEER Work Phone: [facility] 01-04-2024 09:39-0400 SaO2% (BldA) [Mass fraction] 99 % Adelaida Merryholz HYDRAULIC MODELING ENGINEER Work Phone: [facility] 01-04-2024 09:39-0400 Systolic blood pressure 116 mm[Hg] Adelaida Aichholz HYDRAULIC MODELING ENGINEER Work Phone: [facility] 12-09-2023 10:14-0400 Body height 162.6 cm Juany Singhmor HYDRAULIC MODELING ENGINEER Work Phone: [facility] 12-09-2023 10:14-0400 Body mass index (BMI) [Ratio] 48.92 kg/m2 Juany Singhmor HYDRAULIC MODELING ENGINEER Work Phone: [facility] 12-09-2023 10:14-0400 Body weight 129.28 kg Juany Singhmor HYDRAULIC MODELING ENGINEER Work Phone: [facility] 12-09-2023 10:14-0400 Diastolic blood pressure 78 mm[Hg] Juany Samanthamor HYDRAULIC MODELING ENGINEER Work Phone: [facility] 12-09-2023 10:14-0400 SaO2% (BldA) [Mass fraction] 97 % Juany Samanthamor HYDRAULIC MODELING ENGINEER Work Phone: [facility] 12-09-2023 10:14-0400 Systolic blood pressure 122 mm[Hg] Juany Singhmor HYDRAULIC MODELING ENGINEER Work Phone: [facility] 12-08-2023 15:24-0400 Body height 162.6 cm Sonam Windnagel HYDRAULIC MODELING ENGINEER Work Phone: [facility] 12-08-2023 15:24-0400 Body mass index (BMI) [Ratio] 48.92 kg/m2 Sonam Windnagel HYDRAULIC MODELING ENGINEER Work Phone: [facility] 12-08-2023 15:24-0400 Body weight 129.28 kg Sonam Windnagel HYDRAULIC MODELING ENGINEER Work Phone: [facility] 12-08-2023 15:24-0400 Diastolic blood pressure 77 mm[Hg] Sonam Windnagel HYDRAULIC MODELING ENGINEER Work Phone: [facility] 12-08-2023 15:24-0400 Heart rate 72 /min Sonam Windnagel HYDRAULIC MODELING ENGINEER Work Phone: [facility] 12-08-2023 15:24-0400 Systolic blood pressure 134 mm[Hg] Sonam Windnagel HYDRAULIC MODELING ENGINEER Work Phone: [facility] 05-18-2023 16:30-0500 Body height 162.6 cm Adelaidamonse Sousaholz HYDRAULIC MODELING ENGINEER Work Phone: [facility] 05-18-2023 16:30-0500 Body mass index (BMI) [Ratio] 47.89 kg/m2 Adelaida Yinghholz HYDRAULIC MODELING ENGINEER Work Phone: [facility] 05-18-2023 16:30-0500 Body temperature 97.3 [degF] Adelaida Yinghholz HYDRAULIC MODELING ENGINEER Work Phone: [facility] 05-18-2023 16:30-0500 Body weight 126.55 kg Adelaida Aichholz HYDRAULIC MODELING ENGINEER Work Phone: [facility] 05-18-2023 16:30-0500 Diastolic blood pressure 80 mm[Hg] Adelaida Aichholz HYDRAULIC MODELING ENGINEER Work Phone: [facility] 05-18-2023 16:30-0500 Heart rate 76 /min Adelaida Aichholz HYDRAULIC MODELING ENGINEER Work Phone: [facility] 05-18-2023 16:30-0500 Respiratory rate 19 /min Adelaida Aichholz HYDRAULIC MODELING ENGINEER Work Phone: [facility] 05-18-2023 16:30-0500 SaO2% (BldA) [Mass fraction] 97 % Adelaida Yinghholz HYDRAULIC MODELING ENGINEER Work Phone: [facility] 05-18-2023 16:30-0500 Systolic blood pressure 134 mm[Hg] Adelaida Aichholz HYDRAULIC MODELING ENGINEER Work Phone: [facility] 03-23-2023 12:10-0500 Diastolic blood pressure 98 mm[Hg] Adelaida Aichholz Work Phone: [facility] 03-23-2023 12:10-0500 Heart rate 76 /min Adelaida Aichholz Work Phone: [facility] 03-23-2023 12:10-0500 Respiratory rate 18 /min Adelaida Aichholz Work Phone: [facility] 03-23-2023 12:10-0500 SaO2% (BldA) [Mass fraction] 99 % Adelaida Carrion Work Phone: [facility] 03-23-2023 12:10-0500 Systolic blood pressure 162 mm[Hg] Adelaida Carrion Work Phone: [facility] 03-23-2023 10:53-0500 Body height 162.56 cm Adelaida Carrion Work Phone: [facility] 03-23-2023 10:53-0500 Body weight 125.64 kg Adelaida Carrion Work Phone: [facility] 12-19-2022 14:55-0400 Body height 162.56 cm Rosemary Vernonmond Other [facility] Other 12-19-2022 14:55-0400 Body mass index (BMI) [Ratio] 47.85 kg/m2 Rosemary Vernonmond Other [facility] Other 12-19-2022 14:55-0400 Body temperature 97.8 [degF] Rosemary Vernonmond Other [facility] Other 12-19-2022 14:55-0400 Body weight 126.46 kg Rosemary Vernonmond Other [facility] Other 12-19-2022 14:55-0400 Respiratory rate 20 /min Rosemary Vernonmond Other [facility] Other 12-19-2022 14:55-0400 SaO2% (BldA) [Mass fraction] 95 % Rosemary Vernonmond Other [facility] Other 11-20-2022 13:12-0400 Body temperature 97.7 [degF] Adelaida Aichholz Work Phone: [facility] 11-20-2022 13:12-0400 SaO2% (BldA) [Mass fraction] 96 % Adelaida Merryholz Work Phone: [facility] 11-20-2022 07:44-0400 Diastolic blood pressure 90 mm[Hg] Adelaida Aichholz Work Phone: [facility] 11-20-2022 07:44-0400 Heart rate 103 /min Adelaida Aichholz Work Phone: [facility] 11-20-2022 07:44-0400 Systolic blood pressure 152 mm[Hg] Adelaida Aichholz Work Phone: [facility] 11-19-2022 20:00-0400 Respiratory rate 18 /min Adelaida Aichholz Work Phone: [facility] 11-18-2022 15:18-0400 Body height 162.56 cm Adelaidamonse Sousaholz Work Phone: [facility] 11-17-2022 09:00-0400 Body weight 122.92 kg Adelaidamonse Sousaholz Work Phone: [facility] Encounters Encounter Date Encounter Type Care Provider Facility Start: 11-23-2024 End: 11-23-2024 Clinisync Result Encounter Adelaida Sousabob HYDRAULIC MODELING ENGINEER Work Phone: [facility] Unsolicited Start: 11-23-2024 End: 11-23-2024 Clinisync Result Encounter Adelaiadmonse Sousakushz HYDRAULIC MODELING ENGINEER Work Phone: [facility] Unsolicited Start: 11-18-2024 End: 11-18-2024 Bamboo flowsheet Harrison Hoyos DO Work Phone: [facility] Start: 11-18-2024 End: 11-18-2024 Bamboo flowsheet Harrison Hoyos DO Work Phone: [facility] Start: 11-18-2024 End: 11-18-2024 Patient encounter procedure Harrison Shea Pocos DO Work Phone: [facility] Comment on above: Acute medial meniscu s tear of right knee, initial encounter (Primary Dx); Chronic pain of right knee; Morbid obesity ([facility]); Primary osteoarthritis of right knee; Preoperative testing Start: 11-18-2024 End: 11-18-2024 Patient encounter status Harrison Shea Pocos DO Work Phone: [facility] Start: 11-18-2024 End: 11-18-2024 ambulatory HARRISON Shea POCOS Not Available Start: 11-17-2024 End: 11-17-2024 ambulatory HARRISON Shea POCOS Not Available Start: 11-14-2024 End: 11-14-2024 Bamboo flowsheet Adelaida Carrion NP Work Phone: [facility] Start: 11-14-2024 End: 11-17-2024 Bamboo flowsheet Adelaida Carrion HYDRAULIC MODELING ENGINEER Work Phone: [facility] Start: 11-14-2024 End: 11-17-2024 Clinisync Result Encounter Adelaida Carrion NP Work Phone: [facility] External Department Unsolicited Start: 11-14-2024 End: 11-14-2024 Office outpatient visit 25 minutes Adelaida Carrion NP Work Phone: [facility] Comment on above: Well woman exam with routine gynecological exam (Primary Dx); Morbid (severe) obesity due to excess calories ([facility]); Primary hypertension ; Anemia, unspecified type; Bilateral lower extremity edema; Osteoporosis, unspecified osteoporosis type, unspecified pathological fracture presence ; Chronic kidney disease, stage 3a ([facility]); Pre-diabetes Start: 11-14-2024 End: 11-14-2024 Patient encounter procedure Adelaida aCrrion NP Work Phone: [facility] Start: 11-14-2024 End: 11-14-2024 ambulatory ADELAIDA CARRION Not Available Start: 11-08-2024 ambulatory Eduardo Monk Facility:[facility] Start: 10-27-2024 End: 10-27-2024 Patient encounter procedure Harrison Hoyos DO Work Phone: [facility] Comment on above: Right knee pain, uns pecified chronicity (Primary Dx); Primary osteoarthritis of right knee; Morbid obesity ([facility]) Start: 10-27-2024 End: 10-27-2024 ambulatory HARRISON Shea POCOS Not Available Start: 10-27-2024 End: 10-27-2024 ambulatory HARRISON Shea POCOS Not Available Start: 10-13-2024 End: 10-13-2024 Bamboo flowsheet Adelaida Carrion HYDRAULIC MODELING ENGINEER Work Phone: [facility] Start: 10-13-2024 End: 10-13-2024 Bamboo flowsheet Adelaida Carrion HYDRAULIC MODELING ENGINEER Work Phone: [facility] Start: 10-13-2024 End: 10-13-2024 Office outpatient visit 25 minutes Adelaida Carrion HYDRAULIC MODELING ENGINEER Work Phone: [facility] Comment on above: Disorientation (Prim zuleika [...] 10-09-2024 Emergency department patient visit ADELAIDA CARRION [facility] Start: 09-29-2024 End: 09-29-2024 [...] 08-16-2024 End: 08-16-2024 Bamboo flowsheet Adelaida Carrion HYDRAULIC MODELING ENGINEER Work Phone: [facility] Start: 08-16-2024 End: 08-16-2024 Bamboo flowsheet Adelaida Carrion HYDRAULIC MODELING ENGINEER Work Phone: [facility] Start: 08-16-2024 End: 08-16-2024 Office outpatient visit 15 minutes Adelaida Carrion HYDRAULIC MODELING ENGINEER Work Phone: [facility] Comment on [...] 07-27-2024 End: 07-27-2024 Bamboo flowsheet Adelaida Carrion HYDRAULIC MODELING ENGINEER Work Phone: [facility] Start: 07-27-2024 End: 07-27-2024 Bamboo flowsheet Adelaida Carrion HYDRAULIC MODELING ENGINEER Work Phone: [facility] Start: 07-27-2024 End: 07-27-2024 Office outpatient visit 15 minutes Adelaida Carrion HYDRAULIC MODELING ENGINEER Work Phone: [facility] Comment on [...] apnea) (Primary Dx); Restless leg; 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[facility]); Concentration deficit Start: 07-26-2024 End: 07-26-2024 ambulatory JUANY LOWE Not Available Start: 07-18-2024 End: 07-18-2024 ambulatory Syeda Mancuso MD Facility: [facility] Start: 06-14-2024 End: 06-14-2024 Refill Adelaida Aichholz HYDRAULIC MODELING ENGINEER Work Phone: [facility] Comment on [...] 05-23-2024 End: 05-23-2024 ambulatory Syeda Mancuso MD Facility:[facility] Start: 05-12-2024 End: 05-12-2024 Bamboo flowsheet Adelaida Carrion HYDRAULIC MODELING ENGINEER Work Phone: [facility] Start: 05-12-2024 End: 05-12-2024 Bamboo flowsheet Adelaida Carrion HYDRAULIC MODELING ENGINEER Work Phone: [facility] Start: 05-12-2024 End: 05-12-2024 Office outpatient visit 25 minutes Adelaida Carrion NP Work Phone: [facility] Comment on [...] 05-09-2024 End: 05-09-2024 ambulatory [facility] Start: 04-12-2024 End: 04-12-2024 Refill Juany REDDY Work Phone: [facility] Comment on above: Transient alteration of awareness (Primary Dx); Restless leg Start: 04-07-2024 End: 04-07-2024 Patient encounter procedure David Foster PhD Work Phone: [facility] Comment on above: Metabolic encephalop athy (Primary Dx); Memory change; Altered mental status, unspecified altered mental status type; Concentration deficit; PTSD (post-traumatic stress disorder) [facility] [facility]/HCC); Bipolar affective disorder, remission status unspecified (CMS/HCC); Family history of dementia; 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CMS/HCC); OSMANY (obstructive sleep apnea) Start: 04-07-2024 End: 04-07-2024 ambulatory ADELAIDA AICHHOLZ Not Available Start: 03-22-2024 End: 03-22-2024 ambulatory RACHEL SAHNI Not Available Start: 03-16-2024 End: 03-16-2024 Bamboo flowsheet Adelaida Aichholz HYDRAULIC MODELING ENGINEER Work Phone: [facility] FM Start: 03-16-2024 End: 03-16-2024 Bamboo flowsheet Adelaida Aichholz HYDRAULIC MODELING ENGINEER Work Phone: [facility] CW FM Start: 03-16-2024 End: 03-16-2024 Office outpatient visit 25 minutes Adelaida Sheyla HYDRAULIC MODELING ENGINEER Work Phone: [facility] FM Comment on above: Metabolic encephalop athy (Primary Dx); OSMANY (obstructive sleep apnea); Morbid obesity (CMS/HCC); Bilateral lower extremity edema; Tobacco dependence; Bipolar disorder with severe depression (CMS/HCC); At risk for polypharmacy; Anxiety; Primary hypertension (CMS/HCC); Right bundle branch block (RBBB) determined by electrocardiography Start: 03-16-2024 End: 03-16-2024 ambulatory ADELAIDA AICHHOLZ Not Available Start: 03-15-2024 End: 03-16-2024 Telephone encounter David Norman MA [facility] Start: 03-14-2024 End: 03-14-2024 Bamboo flowsheet David Foster PhD Work Phone: [facility] Start: 03-14-2024 End: 03-14-2024 Bamboo flowsheet David Foster PhD Work Phone: [facility] Start: 03-14-2024 End: 03-14-2024 ambulatory DAVID FOSTER Not Available Start: 03-14-2024 End: 03-14-2024 Patient encounter procedure David Foster PhD Work Phone: [facility] Comment on above: Altered mental statu s, unspecified altered mental status type (Primary Dx); Memory change; Concentration deficit; 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 (CMS/HCC); PTSD (post-traumatic stress disorder) (CMS/HCC); Bipolar affective disorder, remission status unspecified (CMS/HCC); Family history of dementia Start: 03-10-2024 End: 03-10-2024 Office outpatient visit 25 minutes Rachel Sahni PA Work Phone: [facility] Comment on above: Altered mental statu s, unspecified altered mental status type (Primary Dx); Restless leg; 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CMS/HCC); OSMANY (obstructive sleep apnea) Start: 03-10-2024 End: 03-10-2024 ambulatory RACHEL SAHNI Not Available Start: 03-03-2024 End: 03-07-2024 Evaluation and management of inpatient Adelaida Tabby Carrion Facility:[facility] Start: 03-02-2024 End: 03-04-2024 Clinisync Result Encounter Generic External Data Provider [facility] External Department Unsolicited Start: 03-02-2024 End: 03-04-2024 Clinisync Result Encounter Generic External Data Provider [facility] External Department Unsolicited Start: 03-02-2024 End: 03-02-2024 Refill Adelaida Sheyla HYDRAULIC MODELING ENGINEER [facility] Comment on above: Yeast infection [...] Start: 02-28-2024 End: 02-29-2024 Refill Adelaida Carrion HYDRAULIC MODELING ENGINEER Work Phone: [facility] Comment on above: Allergic rhinitis, u nspecified Start: 02-24-2024 End: 02-24-2024 Refill Adelaida Sheyla HYDRAULIC MODELING ENGINEER Work Phone: [facility] Comment on above: Essential (primary) hypertension (CMS/HCC); Allergic rhinitis, unspecified Start: 02-16-2024 End: 02-16-2024 Bamboo flowsheet Adelaida Carrion HYDRAULIC MODELING ENGINEER Work Phone: [facility] Start: 02-16-2024 End: 02-23-2024 Clinisync Result Encounter Adelaida Carrion HYDRAULIC MODELING ENGINEER Work Phone: [facility] External Department Unsolicited Start: 02-16-2024 End: 02-23-2024 Clinisync Result Encounter Adelaida Carrion HYDRAULIC MODELING ENGINEER Work Phone: [facility] External Department Unsolicited Start: 02-16-2024 End: 02-16-2024 Patient encounter procedure Adelaida Carrion HYDRAULIC MODELING ENGINEER Work Phone: [facility] Start: 02-16-2024 End: 02-16-2024 Periodic preventive med est patient 40-64yrs Adelaida Carrion HYDRAULIC MODELING ENGINEER Work Phone: [facility] Comment on above: Well woman exam with routine gynecological exam (Primary Dx); Morbid obesity (CMS/HCC) Start: 02-16-2024 End: 02-16-2024 ambulatory ADELAIDA SHEYLA Not Available Start: 02-04-2024 End: 02-04-2024 Refill Sonam Brown HYDRAULIC MODELING ENGINEER [facility] Comment on above: Restless leg Start: 01-28-2024 End: 01-28-2024 Bamboo flowsheet Adelaida Carrion HYDRAULIC MODELING ENGINEER Work Phone: [facility] Start: 01-28-2024 End: 01-28-2024 Bamboo flowsheet Adelaida Sheyla HYDRAULIC MODELING ENGINEER Work Phone: [facility] Start: 01-28-2024 End: 01-28-2024 Office outpatient visit 15 minutes Adelaida Sheyla HYDRAULIC MODELING ENGINEER Work Phone: [facility] Comment on above: Acute cystitis witho ut hematuria (Primary Dx); Tobacco dependence; Needs flu shot; Morbid obesity ([facility]/HCC) Start: 01-28-2024 End: 01-28-2024 ambulatory ADELAIDA SHEYLA Not Available Start: 01-25-2024 End: 01-25-2024 ambulatory Syeda Mancuso MD Facility:[facility] Start: 01-21-2024 End: 01-25-2024 Clinisync Result Encounter Generic External Data Provider [facility] External Department Unsolicited Start: 01-21-2024 End: 01-25-2024 Clinisync Result Encounter Generic External Data Provider [facility] External Department Unsolicited Start: 01-05-2024 End: 01-05-2024 Clinisync Result Encounter Adelaida Carrion HYDRAULIC MODELING ENGINEER Work Phone: [facility] External Department Unsolicited Start: 01-05-2024 End: 01-05-2024 Clinisync Result Encounter Adelaida Carrion HYDRAULIC MODELING ENGINEER Work Phone: [facility] External Department Unsolicited Start: 01-04-2024 End: 01-04-2024 Bamboo flowsheet Adelaida Carrion HYDRAULIC MODELING ENGINEER Work Phone: [facility] Start: 01-04-2024 End: 01-04-2024 Bamboo flowsheet Adelaida Carrion HYDRAULIC MODELING ENGINEER Work Phone: [facility] Start: 01-04-2024 End: 01-04-2024 Office outpatient visit 25 minutes Adelaida Kelsiez HYDRAULIC MODELING ENGINEER Work Phone: [facility] Comment on above: Bilateral lower extr emity edema (Primary Dx); Essential (primary) hypertension (CMS/HCC); Allergic rhinitis, unspecified; OSMANY (obstructive sleep apnea); Primary hypertension (CMS/HCC); Morbid obesity (CMS/HCC) Start: 01-04-2024 End: 01-04-2024 ambulatory ADELAIDA AICHHOLZ Not Available Start: 12-30-2023 End: 12-30-2023 Refill Adelaida Aichholz HYDRAULIC MODELING ENGINEER Work Phone: [facility] Comment on above: Lower extremity elis a Start: 12-09-2023 End: 12-09-2023 Office outpatient visit 25 minutes Juany Caballero HYDRAULIC MODELING ENGINEER Work Phone: [email or web address] [address] Comment on above: OSMANY (obstructive sle ep apnea) (Primary Dx); Restless leg Start: 12-09-2023 End: 12-09-2023 ambulatory JUANY CABALLERO Not Available Start: 12-08-2023 End: 12-08-2023 ambulatory SONAM C ALLYNAGEL Not Available Start: 12-08-2023 End: 12-08-2023 Office outpatient visit 25 minutes Sonam C Kevin HYDRAULIC MODELING ENGINEER Work Phone: [facility] [address] Comment on above: 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CMS /HCC) (Primary Dx); Restless leg; Metabolic encephalopathy Start: 12-08-2023 End: 12-08-2023 Bamboo flowsheet Sonam C Windnagel HYDRAULIC MODELING ENGINEER Work Phone: [facility] [address] Start: 12-08-2023 End: 12-08-2023 Bamboo flowsheet Sonam C Windnagel HYDRAULIC MODELING ENGINEER Work Phone: [facility] [address] Start: 11-27-2023 End: 11-27-2023 Refill Adelaida Aichholz HYDRAULIC MODELING ENGINEER Work Phone: [facility] Comment on above: Yeast infection of t he skin (Primary Dx) Start: 05-21-2023 Refill Adelaida Aichholz HYDRAULIC MODELING ENGINEER Work Phone: [facility] CW FM Comment on above: Acute cystitis with hematuria (Primary Dx) Start: 05-18-2023 End: 05-18-2023 Office outpatient visit 25 minutes Adelaida Carrion NP Work Phone: [facility] Comment on above: Encounter for annual wellness visit (AWV) in Medicare patient (Primary Dx); OSMANY (obstructive sleep apnea); Chronic pain disorder; Gastroesophageal reflux disease, unspecified whether esophagitis present; Overactive bladder; Lower extremity edema; Pre-diabetes; Morbid obesity ([facility]); Yeast infection of the skin; Tobacco dependence; Mood disorder ([facility]); Primary hypertension ([facility]); Left hip pain; Open wound of anterior abdominal wall, initial encounter Start: 05-18-2023 Bamboo flowsheet Adelaida Carrion NP Work Phone: [facility] CW [facility] Start: 05-18-2023 Bamboo flowsheet Adelaida Carrion NP Work Phone: [facility] FM Start: 05-18-2023 End: 05-18-2023 Patient encounter procedure Adelaida Carrion NP Work Phone: [facility] Start: 03-23-2023 End: 03-23-2023 Admission to same day surgery center Adelaida Carrion Work Phone: [facility] Work Phone: Start: 03-23-2023 End: 03-23-2023 ambulatory Adelaida Carrion Work Phone: [facility] Work Phone: Start: 02-12-2023 End: 02-12-2023 ambulatory Jace Graham Other [employer] Other Start: 02-12-2023 Telephone encounter Jace CORADO G Mechanical Applications Engineer Start: 12-19-2022 End: 12-19-2022 ambulatory Rosemary Kirkland Other [facility] [employer] Other Start: 12-19-2022 Office outpatient ne w 10 minutes Rosemary Kirkland [facility] Miguel Start: 11-17-2022 End: 11-20-2022 Evaluation and management of inpatient Adelaida Merryhollily Work Phone: [facility] Work Phone: Start: 09-04-2022 ambulatory ARIAN HALANNITA . Facili ty:H1 Start: 08-26-2022 ambulatory NARENDRANATH LAKSHMIPATHY . Facility:[facility]1 Start: 08-08-2022 End: 08-09-2022 ambulatory SUPERVISOR [employer] INSTALLATIONS ADELAIDA AICALISSAZ Facility:[facility]1 Start: 07-25-2022 End: 07-26-2022 ambulatory SUPERVISOR [employer] INSTALLATIONS ADELAIDA KELSIEZ Facility:[facility]1 Start: 07-15-2022 End: 07-15-2022 ambulatory NARENDRANATH LAKSHMIPATHY . Facility:[facility] Start: 07-11-2022 ambulatory NARENDRANATH LAKSHMIPATHY . Facility:[facility] Start: 06-26-2022 End: 06-27-[address] FINA NIXON . Facility:[facility] Start: 06-11-2022 ambulatory SUPERVISOR [employer] INSTALLATIONS ADELAIDA SHEYLA Facil ity:H1 Start: 05-21-2022 End: 06-11-2022 ambulatory SUPERVISOR [employer] INSTALLATIONS ADELAIDA MERRYHOLZ Facility:[facility]1 Start: 05-08-2022 End: 05-09-2022 ambulatory SUPERVISOR [employer] INSTALLATIONS ADELAIDA KELSIEZ Facility:[facility]1 Start: 04-28-2022 End: 04-28-2022 ambulatory SUPERVISOR [employer] INSTALLATIONS ADELAIDA KELSIEZ Facility:[facility]1 Start: 04-03-2022 End: 04-04-[address] FINA NIXON . Facility:[facility]1 Start: 03-19-2022 End: 03-20-2022 ambulatory SUPERVISOR CAR INSTALLATIONS ADELAIDA AICMarquesHOLZ Facility:[facility]1 Start: 02-20-2022 End: 02-20-2022 ambulatory GILMER [...] 07-02-2018 End: 07-03-2018 Patient encounter procedure SUKI JHOANAMORENO Facility:[facility] Procedures Date Procedure Procedure Detail Performing Clinician Start: 11-23-2024 MR LUMBAR SPINE WO CON Generic External Data Provider Start: 11-23-2024 XR CHEST 2V Michel Po cos DO Work Phone: Start: 11-23-2024 TBH MICROALB CREAT R ATIO RANDOM Adelaida Carrion HYDRAULIC MODELING ENGINEER Work Phone: Start: 11-14-2024 IGP,APTIMA HPV,AGE GDLN Adelaida Carrion HYDRAULIC MODELING ENGINEER Work Phone: Start: 10-27-2024 Radiologic examinati on knee 3 views Michel Pocos DO Work Phone: Start: 09-29-2024 Radex hips bilateral with pelvis 2 views Generic External Data Provider Start: 09-26-2024 CT LUNG SCREENING LOW DOSE Adelaida Carrion HYDRAULIC MODELING ENGINEER Work Phone: Start: 09-26-2024 MM TOMOSYNTHESIS SCR EENING BI Adelaida Carrion HYDRAULIC MODELING ENGINEER Work Phone: Start: 09-26-2024 XR SHOULDER RT MIN 2V G eneric External Data Provider Start: 09-26-2024 Mammography Adelaida Jayden ramos HYDRAULIC MODELING ENGINEER Work Phone: Start: 08-16-2024 Hemoglobin glycosylated a1c Adelaida Sousabob HYDRAULIC MODELING ENGINEER Work Phone: Start: 03-02-2024 BLOOD CULTURE 1 Generic External Data Provider Start: 02-16-2024 IGP,APTIMA HPV,AGE GDLN Adelaida Hejosue HYDRAULIC MODELING ENGINEER Work Phone: Start: 01-28-2024 Urnls dip stick/tabl et rgnt non-auto w/o micrscp Adelaida Sheyla HYDRAULIC MODELING ENGINEER Work Phone: Start: 01-21-2024 MHPT CULT,URINE Generic External Data Provider Start: 01-05-2024 ALL BASIC METABOLIC PANEL Adelaida Sheyla HYDRAULIC MODELING ENGINEER Work Phone: Start: 09-18-2023 Mammography Adelaida Jayden ramos HYDRAULIC MODELING ENGINEER Work Phone: Start: 03-23-2023 Screening colonoscopy L onealmonse Carrion Work Phone: Start: 03-23-2023 Colonoscopy Adelaida Jayden ramos HYDRAULIC MODELING ENGINEER Work Phone: Start: 09-15-2022 Mammography Adelaida Merrymarques rachel HYDRAULIC MODELING ENGINEER Work Phone: Start: 08-28-2022 Microscopic observat ion [Identifier] in Cervix by Cyto stain Adelaida Sheyla HYDRAULIC MODELING ENGINEER Work Phone: Start: 07-02-2018 ANESTH KNEE AREA SURGERY CHAPARRITA HENDRICKS Start: 07-02-2018 REMOVAL OF SUPPORT IMPLANT SUKI EBRAHEIM Start: 07-02-2018 TREAT KNEECAP FRACTURE SUKI EBRAHEIM Plan of Treatment Date Care Activity Detail Author Start: 03-23-2033 Screening for malign ant neoplasm of colon [facility] Start: 09-26-2025 Screening for malign ant neoplasm of breast Mammogram [facility] Start: 09-26-2025 Screening for malign ant neoplasm of lung Lung Cancer Screening Shared Decision Making [facility] Comment on above: Postponed from 12/05 (Other Medical Reasons) Start: 08-28-2025 Screening for malign ant neoplasm of cervix [facility] Start: 02-15-2025 Medicare Annual Well ness (AWV) Medicare Annual Wellness (AWV) [facility] Start: 02-13-2025 End: 02-13-2025 Patient encounter procedure 02/13/2025 9:40 AM EST Office Visit [facility] [address] [place] [address] Adelaida Carrion, HYDRAULIC MODELING ENGINEER [address] [place] [address] [facility] Start: 2024 Influenza vaccination Influenza Vacc ine (#1) [facility] Start: 11-18-2024 End: 11-18-2025 XR Chest 2 Views XR chest 2 views Imaging Routine Preoperative testing Expected: 11/18/2024 (Approximate), Expires: 11/18/2025 [facility] Work Phone: Comment on above: Expected: 11/18/2024 (Approximate), Expires: 11/18/2025 Start: 11-18-2024 End: 11-18-2024 Patient encounter procedure [facility] Comment on above: Arrived Start: 11-17-2024 End: 11-17-2024 Professional / ancillary services management 11/17/2024 8:45 AM EDT Ancillary Procedure [facility] [address] [place] [id number] [facility] Start: 11-14-2024 End: 11-14-2025 25-hydroxyvitamin D3 [Mass/volume] in Serum or Plasma Vitamin D 25 hydroxy Lab Routine Chronic kidney disease, stage 3a (CMS-HCC) Expected: 11/14/2024 (Approximate), Expires: 11/14/2025 [facility] Comment on above: Expected: 11/14/2024 (Approximate), Expires: 11/14/2025 Start: 11-14-2024 End: 11-14-2025 CBC W Auto Differential panel - Blood CBC and differential Lab Routine Anemia, unspecified type Expected: 11/14/2024 (Approximate), Expires: 11/14/2025 [facility] Comment on above: Expected: 11/14/2024 (Approximate), Expires: 11/14/2025 Start: 11-14-2024 End: 11-14-2025 Comprehensive metabolic 2000 panel - Serum or Plasma Comprehensive metabolic panel Lab Routine Primary hypertension Bilateral lower extremity edema Osteoporosis, unspecified osteoporosis type, unspecified pathological fracture presence Chronic kidney disease, stage 3a ([facility]-HCC) Pre-diabetes Expected: 11/14/2024 (Approximate), Expires: 11/14/2025 [facility] Comment on above: Expected: 11/14/2024 (Approximate), Expires: 11/14/2025 Start: 11-14-2024 End: 11-14-2025 Lipid 1996 panel - Serum or Plasma Lipid panel Lab Routine Pre-diabetes Expected: 11/14/2024 (Approximate), Expires: 11/14/2025 [facility] Comment on above: Expected: 11/14/2024 (Approximate), Expires: 11/14/2025 Start: 11-14-2024 End: 11-14-2025 Microalbumin/Creatinine panel in random Urine Microalbumin / creatinine, urine ratio Lab Routine Primary hypertension Pre-diabetes Expected: 11/14/2024 (Approximate), Expires: 11/14/2025 [facility] Comment on above: Expected: 11/14/2024 (Approximate), Expires: 11/14/2025 Start: 11-14-2024 End: 11-14-2025 THIN PREP TIS PAP AND HR HPV DNA THIN PREP TIS PAP AND HR HPV DNA Pathology and Cytology Routine Well woman exam with routine gynecological exam Expected: 11/14/2024 (Approximate), Expires: 11/14/2025 [facility] Work Phone: Comment on above: Expected: 11/14/2024 (Approximate), Expires: 11/14/2025 Start: 11-14-2024 End: 11-14-2025 Urinalysis complete panel - Urine Urinalysis with reflex microscopic (clean catch) Lab Routine Primary hypertension Pre-diabetes Expected: 11/14/2024 (Approximate), Expires: 11/14/2025 [facility] Comment on above: Expected: 11/14/2024 (Approximate), Expires: 11/14/2025 Start: 11-14-2024 End: 11-14-2024 Patient encounter procedure [facility] Comment on above: Morbid (severe) obes ity due to excess calories [facility] ([facility]); Well woman exam with routine gynecological exam; Primary hypertension ; Anemia, unspecified type; Bilateral lower extremity edema; Osteoporosis, unspecified osteoporosis type, unspecified pathological fracture presence ; Chronic kidney disease, stage 3a ([facility]); Pre-diabetes Start: 10-13-2024 End: 10-13-2025 DXA Skeletal system Views for bone density DEXA bone density Imaging Routine Osteoporosis, unspecified osteoporosis type, unspecified pathological fracture presence Expected: 10/13/2024 (Approximate), Expires: 10/13/2025 [facility] Work Phone: Comment on above: Expected: 10/13/2024 (Approximate), Expires: 10/13/2025 Start: 10-13-2024 End: 10-13-2024 Patient encounter procedure 10/13/2024 9:00 AM EDT Office Visit [facility] [address] [place] [address] Adelaida Carrion NP [address] [place] [address] Arrived [facility] Comment on above: Arrived Start: 09-22-2024 End: 09-22-2024 Patient encounter procedure 09/22/2024 11:00 AM EDT Office Visit [facility] [address] [place] [address] Rachel Sahni PA [address] [place] [address] [facility] Start: 09-17-2024 Screening for malign ant neoplasm of breast Mammogram [facility] Start: 08-16-2024 End: 08-16-2025 CT Chest for screening WO contrast CT lung screening low dose Imaging Routine Former cigarette smoker Expected: 08/16/2024 (Approximate), Expires: 08/16/2025 [facility] Comment on above: Expected: 08/16/2024 (Approximate), Expires: 08/16/2025 Start: 08-16-2024 End: 10-16-2025 MG Breast - bilateral Screening Bilateral screening mammogram Imaging Routine Encounter for screening mammogram for malignant neoplasm of breast Expected: 08/16/2024 (Approximate), Expires: 10/16/2025 [facility] Work Phone: Comment on above: Expected: 08/16/2024 (Approximate), Expires: 10/16/2025 Start: 08-16-2024 End: 08-16-2024 Patient encounter procedure [facility] Comment on above: Bronchitis (Primary Dx); Primary hypertension (CMS/HCC); Bilateral lower extremity edema; Morbid (severe) obesity due to excess calories (CMS/HCC); Pre-diabetes Start: 08-11-2024 End: 08-11-2024 Patient encounter procedure 08/11/2024 10:30 AM EDT Office Visit [facility] [address] [place] [address] Adelaida Carrion, BRIANA [address] [place] [phone] [facility] Start: 07-27-2024 End: 07-27-2024 Patient encounter procedure 07/27/2024 11:30 AM EDT Office Visit [facility] [address] [place] [address] Adelaida Carrion, BRIANA [address] [place] [address] Primary hypertension (CMS/HCC) (Primary Dx); Morbid (severe) obesity due to excess calories (CMS/HCC) [facility] Comment on above: Primary hypertension (CMS/HCC) (Primary Dx); Morbid (severe) obesity due to excess calories (CMS/HCC) Start: 07-26-2024 End: 07-26-2024 Patient encounter procedure [facility] Comment on above: Arrived Start: 06-22-2024 End: 06-22-2024 Patient encounter procedure 06/22/2024 11:20 AM EDT Office Visit [facility] [place] [facility] [address] [place] [address] Juany Leggett PA [address] [place] [id number] [facility] [place] [facility] Start: 06-15-2024 End: 06-15-2024 Patient encounter procedure 06/15/2024 9:20 AM EDT Office Visit [facility] [address] [place] [phone] Adelaida Carrion NP [address] [place] [phone] [facility] Start: 05-24-2024 End: 05-24-2024 Patient encounter procedure [facility] [place] [facility] Comment on above: Arrived Start: 05-18-2024 Medicare Annual Well ness (AWV) Medicare Annual Wellness (AWV) [facility] Start: 05-12-2024 End: 05-12-2024 [facility] on above: Primary hypertension [...] PM EST Office Visit [facility] [address] [address] [place] [address] [facility] Start: 04-04-2024 End: 04-04-2024 Patient encounter procedure 04/04/2024 1:20 PM EST Office Visit [facility] [address] [place] [address] Adelaida Carrion, BRIANA [address] [place] [address] GEET[facility] FLORES Start: 03-22-2024 End: 03-22-2024 Clinical Support 03/22/2024 10:00 AM EST Clinical Support [facility] [place] [address] [place] [address] [facility] [address] Start: 03-16-2024 End: 03-16-2024 [facility] Comment on above: Metabolic encephalop athy (Primary Dx); OSMANY (obstructive sleep apnea); Morbid obesity (CMS/HCC); Bilateral lower extremity edema; Tobacco dependence; Bipolar disorder with severe depression (CMS/HCC); At risk for polypharmacy; Anxiety Start: 03-14-2024 End: 03-14-2024 Patient encounter procedure 03/14/2024 10:00 AM EST Office Visit [facility] [address] [address] [place] [address] David Foster, PhD [address] [place] [address] [facility] Start: 03-11-2024 End: 03-11-2025 EEG 2 Hour Routine EEG 2 Hour Routine Neurology Routine Altered mental status, unspecified altered mental status type Expected: 03/11/2024 (Approximate), Expires: 03/11/2025 [facility] Work Phone: Comment on above: Expected: 03/11/2024 (Approximate), Expires: 03/11/2025 Start: 03-10-2024 End: 03-10-2024 Patient encounter procedure 03/10/2024 3:40 PM EST Office Visit [facility] [address] [place] [address] Rachel Sahni PA [address] [place], [place] [phone] [facility] Start: 03-01-2024 End: 03-01-2024 Patient encounter procedure 03/01/2024 12:00 PM EST Office Visit [facility] [place] [address] [place] [phone] Juany Leggett PA [address] [place], [place] [phone] [facility] [address] Start: 02-29-2024 End: 02-29-2024 Patient encounter procedure 02/29/2024 2:40 PM EST Office Visit [facility] [place] [address] [place] [address] Sonam Brown, HYDRAULIC MODELING ENGINEER [address] [place], [place] [phone] [facility] [place] [facility] Start: 02-16-2024 End: 02-15-2025 THIN PREP TIS PAP AND HR HPV DNA THIN PREP TIS PAP AND HR HPV DNA Pathology and Cytology Routine Well woman exam with routine gynecological exam Expected: 02/16/2024 (Approximate), Expires: 02/15/2025 [facility] Work Phone: Comment on above: Expected: 02/16/2024 (Approximate), Expires: 02/15/2025 Start: 02-16-2024 End: 02-16-2024 Patient encounter procedure 02/16/2024 11:30 AM EST Procedure Visit [facility] [address] [place] [id number] Adelaida Carrion NP [address] [place] [id number] [facility] Start: 02-04-2024 Influenza vaccination Influenza Vacc ine (#1) [facility] Comment on above: Postponed from 12/05 (Patient Does Not Have Time) Start: 01-28-2024 End: 01-27-2025 URINARY TRACT INFECTION (HTRX) URINARY TRACT INFECTION (HTRX) Lab Routine Acute cystitis without hematuria Expected: 01/28/2024 (Approximate), Expires: 01/27/2025 [facility] Work Phone: Comment on above: Expected: 01/28/2024 (Approximate), Expires: 01/27/2025 Start: 01-28-2024 End: 01-28-2024 [facility] Comment on above: Tobacco dependence ( Primary Dx) Start: 01-04-2024 End: 01-03-2025 Basic metabolic 1998 panel - Serum or Plasma Basic metabolic panel Lab Routine Bilateral lower extremity edema Expected: 01/04/2024 (Approximate), Expires: 01/03/2025 [facility] Work Phone: Comment on above: Expected: 01/04/2024 (Approximate), Expires: 01/03/2025 Start: 01-04-2024 End: 01-04-2024 Patient encounter procedure [facility] Comment on above: Essential (primary) hypertension (CMS/HCC); Allergic rhinitis, unspecified Start: 12-09-2023 End: 12-09-2023 Patient encounter procedure 12/09/2023 10:30 AM EDT Office Visit [facility] [address] [facility] [place] [address] Juany Caballero NP [address] [place], [place] [facility] [place] [facility] Start: 12-08-2023 End: 12-08-2023 Patient encounter procedure 12/08/2023 3:20 PM EDT Office Visit [facility] [place] [facility] [address] [place] [address] Sonam Brown, HYDRAULIC MODELING ENGINEER [address] [place], [place] [id number] [facility] [place] [facility] [address] Start: 09-16-2023 Screening for malign ant neoplasm of breast Mammogram [facility] Start: 08-17-2023 End: 08-17-2023 Patient encounter procedure 08/17/2023 9:20 AM EDT Office Visit [facility] [address] [place] [address] Adelaida Carrion NP [address] [place] [phone] [facility] Start: 05-22-2023 End: 05-22-2023 Patient encounter procedure 05/22/2023 8:45 AM EST Office Visit [facility] [address] [facility] [address] [place] [address] Travon Hines PA [address] [facility] [address] [place] [address] [facility] Start: 05-18-2023 End: 05-18-2023 Patient encounter procedure 05/18/2023 4:30 PM EST Office Visit [facility] [address] [place] [address] Adelaida Carrion NP [address] [place] [phone] Arrived [facility] Comment on above: Arrived Start: 05-18-2023 End: 05-18-2024 XR Hip - left 3 Views XR hip left 2 or 3 views Imaging Routine Left hip pain Expected: 05/18/2023 (Approximate), Expires: 05/18/2024 [facility] Work Phone: Comment on above: Expected: 05/18/2023 (Approximate), Expires: 05/18/2024 Start: 03-23-2023 [facility] Start: 11-20-2022 [facility] Start: 11-18-2022 Referral to clinical clinical coordinator [facility] Start: 11-17-2022 Hospital admission [facility] Start: 11-17-2022 [facility] Start: 12-06-1991 Screening for malign ant neoplasm of cervix HPV/Cotest [facility] Start: 1960 Medicare Annual Well ness (AWV) Medicare Annual Wellness (AWV) [facility] Start: 1960 Screening for malign ant neoplasm of colon [facility] Start: 1960 Screening for malign ant neoplasm of lung Lung Cancer Screening Shared Decision Making [facility] BLOOD CULTURE 1 BLOOD CULTURE 1 Lab Routine 03/02/2024 3:20 AM EST [facility] Patient Education [facility] Work Phone: Patient referral [facility] Work Phone: XR Knee - right 3 Views XR knee 3 views right Imaging Routine Right knee pain, unspecified chronicity 10/27/2024 8:18 AM EDT [facility] Work Phone: [facility] Immunizations Immunization Date Immunization Notes Care Provider Fa [facility] 01-28-2024 Influenza, injectabl e, Madin Nevaeh Canine Kidney, preservative free, quadrivalent Adelaida Aichholz HYDRAULIC MODELING ENGINEER Work Phone: [facility] 01-28-2024 influenza virus vaccine, unspecified formulation Adelaida Aichholz HYDRAULIC MODELING ENGINEER Work Phone: [facility] 08-17-2023 zoster vaccine recombinant Adelaida Aichholz HYDRAULIC MODELING ENGINEER Work Phone: [facility] 02-13-2023 influenza, injectabl e, quadrivalent, preservative free Adelaida Aichholz HYDRAULIC MODELING ENGINEER Work Phone: [facility] 02-13-2023 SARS-COV-2 (COVID-19 ) vaccine, mRNA, spike protein, LNP, PF, 50 mcg/0.5 mL Adelaida Aichholz HYDRAULIC MODELING ENGINEER Work Phone: [facility] 02-13-2023 influenza virus vaccine, unspecified formulation Adelaida Aichholz HYDRAULIC MODELING ENGINEER Work Phone: [facility] 02-19-2022 diphtheria, tetanus toxoids and pertussis vaccine Adelaida Aichholz HYDRAULIC MODELING ENGINEER Work Phone: [facility] 03-02-2021 Moderna SARS-CoV-2 Vaccination Adelaida Aichholz HYDRAULIC MODELING ENGINEER Work Phone: [facility] 08-24-2020 Moderna SARS-CoV-2 Vaccination Adelaida Merryholz HYDRAULIC MODELING ENGINEER Work Phone: [facility] 07-27-2020 Moderna SARS-CoV-2 Vaccination Adelaida Merryholz HYDRAULIC MODELING ENGINEER Work Phone: [facility] 05-28-2018 influenza, injectabl e, quadrivalent, preservative free Adelaida Merryholz Work Phone: [facility] 2017 pneumococcal conjuga te vaccine, 13 valent Adelaida Merryholz HYDRAULIC MODELING ENGINEER Work Phone: [facility] Payers Date Payer Category Payer Medicare [id number] 2022 Self-pay [id number] 2022 Medicare [id number] 2022 Medicare (Managed Care) [facility] [place] [address] [id number] 2008 Unknown [id number] 1961 Unknown [id number] 2.16.840.1.613750.3.579.2 .647 1961 Unknown [id number] .16.840.1.657457.3.579.2 .593 1961 Unknown [id number] 2.16.840.1.730020.3.579.2 .593 1961 Unknown [id number] 2.16.840.1.069262.3.579.2 .593 1961 Unknown [id number] 2.16.840.1.035899.3.579.2 .593 1961 Unknown [id number] 2.16.840.1.096513.3.579.2 .593 1961 Unknown [id number] 2.16.840.1.526422.3.579.2 .593 1961 Unknown [id number] 2.16.840.1.505104.3.579.2 .593 1961 Unknown [id number] 2.16.840.1.419812.3.579.2 .593 1961 Unknown [id number] 2.16.840.1.992972.3.579.2 .593 1961 Unknown [id number] 2.16.840.1.298540.3.579.2 .593 1961 Unknown [id number] 2.16.840.1.599779.3.579.2 .593 1961 Unknown [id number] 2.16.840.1.169607.3.579.2 .593 1961 Unknown [id number] 2.16.840.1.251889.3.579.2 .593 1961 Unknown [id number] 2.16.840.1.332135.3.579.2 .593 1961 Unknown [id number] 2.16.840.1.769176.3.579.2 .593 1961 Unknown [id number] 2.16.840.1.589722.3.579.2 .593 1961 Unknown [id number] 2.16.840.1.771855.3.579.2 .593 1961 Unknown [id number] 2.16.840.1.122861.3.579.2 .593 1961 Unknown [id number] 2.16.840.1.807860.3.579.2 .593 1961 Unknown [id number] 2.16.840.1.090926.3.579.2 .593 1961 Unknown [id number] 2.16.840.1.880623.3.579.2 .593 1961 Unknown [id number] 2.16.840.1.057697.3.579.2 .593 1961 Unknown [id number] 2.16.840.1.049202.3.579.2 .593 1961 Unknown [id number] 2.16.840.1.218895.3.579.2 .593 1961 Unknown [id number] 2.16.840.1.777483.3.579.2 .1286 1961 Unknown [id number] 2.16.840.1.212967.3.579.2 .196 1961 Unknown [id number] 2.16.840.1.038907.3.579.2 .196 1961 Unknown [id number] 2.16.840.1.906933.3.579.2 .196 1961 Unknown [id number] 2.16.840.1.009510.3.579.2 .196 1961 Unknown [id number] 2.16.840.1.811154.3.579.2 .196 1961 Unknown [id number] 2.16.840.1.392857.3.579.2 .196 1961 Unknown [id number] 2.16.840.1.018977.3.579.2 .196 1961 Unknown [id number] 2.16.840.1.234279.3.579.2 .1258 1961 Unknown [id number] 2.16.840.1.651278.3.579.2 .1258 1961 Unknown [id number] 2.16.840.1.226924.3.579.2 .1258 1961 Unknown [id number] 2.16.840.1.215473.3.579.2 .1258 1961 Unknown [id number] 2.16.840.1.641079.3.579.2 .1258 1961 Unknown [id number] 2.16.840.1.358771.3.579.2 .1258 1961 Unknown [id number] 2.16.840.1.046485.3.579.2 .1258 1961 Unknown [id number] 2.16.840.1.731915.3.579.2 .1258 1961 Unknown [id number] 2.16.840.1.231210.3.579.2 .1258 1961 Unknown [id number] 2.16.840.1.234849.3.579.2 .1258 1961 Unknown [id number] 2.16.840.1.169206.3.579.2 .1258 1961 Unknown [id number] 2.16.840.1.716463.3.579.2 .1258 1961 Unknown [id number] 2.16.840.1.861234.3.579.2 .1258 1961 Unknown [id number] 2.16.840.1.798107.3.579.2 .1258 1961 Unknown [id number] 2.16.840.1.965314.3.579.2 .12581962 Unknown [id number] 2.16.840.1.042169.3.579.2 .9 1961 Unknown [id number] 2.16.840.1.813249.3.579.2 .9 1961 Unknown [id number] 2.16.840.1.915191.3.579.2 .1258 1961 Unknown [id number] 2.16.840.1.600337.3.579.2 .1258 1961 Unknown [id number] 2.16.840.1.575762.3.579.2 .1258 1961 Unknown [id number] 2.16.840.1.050494.3.579.2 .1258 1961 Unknown [id number] 2.16.840.1.437142.3.579.2 .9 1959 Medicare [id number] 1959 Unknown [id number] Private Health Insurance [facility] [id number] Unknown [id number] 2.16.840.1.298886.3.579.2 .531 Unknown [id number] 2.16.840.1.411536.3.579.2 .531 Social History Date Type Detail Facility Start: 11-18-2022 End: 10-14-2023 Tobacco smoking status UTIS Ex-smoker (finding) [facility] Start: 1960 Sex Assigned At Female [facility] Start: 03-25-2023 End: 08-16-2023 Sex Assigned At [facility] Start: 04-06-1976 End: 04-06-2016 History of tobacco use Current smoker [facility] Start: 04-06-1976 End: 04-06-2016 History of tobacco use Cigarette Smoker [facility] Start: 02-09-2023 End: 08-16-2023 Cigarettes smoked current (pack per day) - Reported 1 [facility] Start: 02-09-2023 End: 10-14-2023 Tobacco use and exposure Smokeless tobacco non-user [facility] Start: 05-18-2023 End: 11-18-2024 Alcohol intake Lifetime non-drinker (finding) [facility] [...] Functional status Patient at Baseline [facility] Work Phone: Mental Status Date Assessment Result Facility 11-20-2022 Cognitive function Cognitive Sta tus Patient is Progressing Toward Baseline [facility] Work Phone: Clinical Notes 10-03-2021 to 11-18-2024 Rupal Patricio - 11/18/2024 10:15 AM EDBYRONisa Sheyla, HYDRAULIC MODELING ENGINEER - 11/14/2024 10:30 AM EDShaq Carrion, HYDRAULIC MODELING ENGINEER - 11/14/2024 6:38 AM EDTLisa Aicjosue, HYDRAULIC MODELING ENGINEER - 11/14/2024 6:38 AM EDTPatient Instructions Note [...] biotin 5 MG tablet Pt taking OTC (Amperion) Calcium Citrate-Vitamin D (CITRACAL + D PO) Pt taking OTC (TrendBent) Cannabinoids (medical cannabis) 1 each carvedilol (COREG) [...] Daily Magnesium 400 MG capsule Pt taking OTC(BioVex) Melatonin 12 MG tablet 1 tablet, Nightly Multiple Vitamins-Minerals (BARIATRIC MULTIVITAMINS/IRON PO) Pt taking OTC (amazon) omeprazole (PRILOSEC) 20 mg, Oral, Daily before [...] sent to her primary care physician. Harrison Hoyos D.O. Cosigned by Harrison Hoyos DO at 11/21/2024 12:22 PM EDT documented in this encounter [facility] 11-14-2024 History of Present illness Narrative Images [...] biotin 5 MG tablet Pt taking OTC (Amperion) Calcium Citrate-Vitamin D (CITRACAL + D PO) Pt taking OTC (TrendBent) Cannabinoids (medical cannabis) 1 each carvedilol (COREG) 12.5 mg, Oral, 2 times daily with meals diazePAM (Valium) 10 MG tablet 1 tab orally 30-60 mins before procedure as need for anxiety, claustrophobia. DULoxetine (CYMBALTA) 60 mg, 2 times daily fexofenadine ([place]) 180 mg, Oral, Daily fluticasone (Flonase) 50 MCG/ACT nasal spray 2 sprays, Each Nostril, Daily gabapentin (NEURONTIN) 300 mg, Oral, 2 times daily, Due now Iron-Vitamin C (IRON 100/C PO) Take by mouth losartan (COZAAR) 100 mg, Oral, Daily Magnesium 400 MG capsule Pt taking OTC(BioVex) Melatonin 12 MG tablet 1 tablet, Nightly Multiple Vitamins-Minerals (BARIATRIC MULTIVITAMINS/IRON PO) Pt taking OTC (Amperion) omeprazole (PRILOSEC) 20 mg, Oral, Daily before [...] (HCC) 05/18/2023 Brain lesion Brain vascular malformation ([facility]) Chronic pain disorder Closed fracture [...] surgery Shingles Slurred speech Stroke ([facility]) 2018 Tenosynovitis, de Quervain Thoracic [...] nursing note reviewed. Exam conducted with a ekg monitor present. Constitutional: General: She is not in [...] Morbid (severe) obesity due to excess calories ([facility]-HCC) - Primary Discussed with patient their [...] Morbid (severe) obesity due to excess calories ([facility]) Discussed with patient their BMI (actual, verses recommended). We have also discussed lifestyle modifications: attempts to perform physical activity as chronic conditions allow, also to monitor dietary intake: increasing protein/fruits/veggies and lowering carb intake (unless contraindicated). Limit sodas, juices, and sugary drinks. Has had bariatric surgeries in the past documented in this encounter [facility] 10-27-2024 History of Present illness Narrative Images [...] biotin 5 MG tablet Pt taking OTC (Amperion) Calcium Citrate-Vitamin D (CITRACAL + D PO) Pt taking OTC (TrendBent) Cannabinoids (medical cannabis) 1 each carvedilol (COREG) [...] Daily Magnesium 400 MG capsule Pt taking OTC(BioVex) Melatonin 12 MG tablet 1 tablet, Nightly Multiple Vitamins-Minerals (BARIATRIC MULTIVITAMINS/IRON PO) Pt taking OTC (Amperion) omeprazole (PRILOSEC) 20 mg, Oral, Daily before [...] 12:11 PM EDT documented in this encounter [facility] 10-13-2024 History of Present illness Narrative Associated [...] that supplies your machine and tubing/filters etc: [facility] [place] Doctor that manages your OSMANY: Daniela Associated Problem(s): Disorientation [place] to be related to not using PAP [...] going to have out patient MRI . [place] that she had some encephalopathy with not wearing PAP She is now wearing her pap. Is back to her baseline able to remember words etc. No weakness no dizziness noted either Follows with Juany Rascon NP SUBJECTIVE: MEDICATIONS: Current Outpatient Medications Medication Instructions amLODIPine (NORVASC) 10 mg, Oral, Daily biotin 5 MG tablet Pt taking OTC (Amperion) Calcium Citrate-Vitamin D (CITRACAL + D PO) Pt taking OTC (TrendBent) carvedilol (COREG) 12.5 mg, Oral, 2 times [...] Daily Magnesium 400 MG capsule Pt taking OTC(BioVex) Melatonin 12 MG tablet 1 tablet, Nightly Multiple Vitamins-Minerals (BARIATRIC MULTIVITAMINS/IRON PO) Pt taking OTC (Amperion) omeprazole (PRILOSEC) 20 mg, Oral, Daily before [...] (HCC) 05/18/2023 Brain lesion Brain vascular malformation ([facility]) Chronic pain disorder Closed fracture of patella 02/04/2018 Colon polyps Constipation Degenerative cervical disc Degenerative lumbar disc Depression 05/18/2023 Diastolic dysfunction Dizziness 05/18/2023 Dysphagia Fibromyalgia Fibromyalgia Gastrocnemius equinus GERD (gastroesophageal reflux disease) Heart murmur Hematoma of right breast Hemiparesis (HCC) Hemiparesis, right ([facility]) Hemorrhoid int/external hemorrhoids Hiatal hernia Iron deficiency Left foot pain 03/25/2023 Lower extremity edema Mood disorder mixed mood disorder OSMANY (obstructive sleep apnea) Osteoporosis Overactive bladder Pre-diabetes Primary hypertension 03/25/2023 PTSD (post-traumatic stress disorder) Restless leg Right knee pain Right sided weakness S/P bariatric surgery Shingles Slurred speech Stroke ([facility]) 2018 Tenosynovitis, de Quervain Thoracic [...] meds: amlodipine, losartan, aldactone Disorientation - Primary [place] to be related to not using PAP [...] MG DR capsule documented in this encounter [facility] 08-16-2024 History of Present illness Narrative Associated [...] biotin 5 MG tablet Pt taking OTC (Amperion) Calcium Citrate-Vitamin D (CITRACAL + D PO) Pt taking OTC (TrendBent) carvedilol (COREG) 12.5 mg, Oral, 2 times daily with meals cetirizine (ZYRTEC) 10 mg, Oral, Daily diclofenac (Voltaren) 50 MG EC tablet DULoxetine (CYMBALTA) 60 mg, 2 times daily fluticasone (Flonase) 50 MCG/ACT nasal spray 2 sprays, Each Nostril, Daily gabapentin (NEURONTIN) 300 mg, Oral, 2 times daily, Due now losartan (COZAAR) 100 mg, Oral, Daily Magnesium 400 MG capsule Pt taking OTC([facility]) Melatonin 12 MG tablet 1 tablet, Nightly Multiple Vitamins-Minerals (BARIATRIC MULTIVITAMINS/IRON PO) Pt taking OTC ([facility]) omeprazole (PRILOSEC) 20 mg, Oral, Daily [...] Anxiety 05/18/2023 Bipolar disorder with severe depression ([facility]) 05/18/2023 Brain lesion Brain vascular malformation Chronic pain disorder Closed fracture of patella 02/04/2018 Colon polyps Constipation Degenerative cervical disc Degenerative lumbar disc Depression ([facility]/HCC) 05/18/2023 Diastolic dysfunction Dizziness 05/18/2023 Dysphagia Fibromyalgia Fibromyalgia Gastrocnemius equinus GERD (gastroesophageal reflux disease) Heart murmur Hematoma of right breast Hemiparesis ([facility]) Hemiparesis, right ([facility]) Hemorrhoid int/external hemorrhoids Hiatal hernia Iron deficiency Left foot pain 03/25/2023 Lower extremity edema Mood disorder ([facility]) mixed mood disorder OSMANY (obstructive sleep apnea) Osteoporosis ([facility]) Overactive bladder Pre-diabetes Primary hypertension ([facility]) 03/25/2023 PTSD (post-traumatic stress disorder) ([facility]) Restless leg Right knee pain Right sided weakness S/P bariatric surgery Shingles Slurred speech Stroke ([facility]) 2018 Tenosynovitis, de Quervain Thoracic [...] 100's resolved documented in this encounter [facility] 08-16-2024 Instructions Adelaida Carrion NP - 08/16/2024 11:30 AM EDT Mammogram and lung cancer CT documented in this encounter [facility] 07-27-2024 History of Present illness Narrative Associated Problem(s): Bronchitis Continue OTC mucus relief meds Will add trelegy for bronchitis 100's #2 samples lot [id number], exp 10/28 Fu if not better No s/s resp distress [facility] ER- 07/24/24 Bronchitis & Leurisy Medications: [...] with chief complaint of Hospital Follow-up HPI: [facility] ER- 07/24/24 Bronchitis & Leurisy Medications: [...] biotin 5 MG tablet Pt taking OTC (Amperion) Calcium Citrate-Vitamin D (CITRACAL + D PO) Pt taking OTC (TrendBent) carvedilol (COREG) 12.5 mg, Oral, 2 times daily with meals cetirizine (ZYRTEC) 10 mg, Oral, Daily diclofenac (Voltaren) 50 MG EC tablet DULoxetine (CYMBALTA) 60 mg, 2 times daily fluticasone (Flonase) 50 MCG/ACT nasal spray 2 sprays, Each Nostril, Daily gabapentin (NEURONTIN) 300 mg, Oral, 2 times daily, Due now losartan (COZAAR) 100 mg, Oral, Daily Magnesium 400 MG capsule Pt taking OTC(BioVex) Melatonin 12 MG tablet 1 tablet, Nightly Multiple Vitamins-Minerals (BARIATRIC MULTIVITAMINS/IRON PO) Pt taking OTC (Amperion) omeprazole (PRILOSEC) 20 mg, Oral, Daily before [...] Anxiety 05/18/2023 Bipolar disorder with severe depression ([facility]) 05/18/2023 Brain lesion Brain vascular malformation Chronic pain disorder Closed fracture of patella 02/04/2018 Colon polyps Constipation Degenerative cervical disc Degenerative lumbar disc Depression ([facility]) 05/18/2023 Diastolic dysfunction Dizziness 05/18/2023 Dysphagia Fibromyalgia Fibromyalgia Gastrocnemius equinus GERD (gastroesophageal reflux disease) Heart murmur Hematoma of right breast Hemiparesis ([facility]) Hemiparesis, right ([facility]) Hemorrhoid int/external hemorrhoids Hiatal hernia Iron deficiency Left foot pain 03/25/2023 Lower extremity edema Mood disorder ([facility]) mixed mood disorder OSMANY (obstructive sleep apnea) Osteoporosis ([facility]) Overactive bladder Pre-diabetes Primary hypertension ([facility]) 03/25/2023 PTSD (post-traumatic stress disorder) ([facility]) Restless leg Right knee pain Right sided weakness S/P bariatric surgery Shingles Slurred speech Stroke ([facility]) 2018 Tenosynovitis, de Quervain Thoracic [...] amlodipine, losartan documented in this encounter [facility] 07-26-2024 History of Present illness Narrative Images [...] Review Audit Reviewed by Beronica Reyes MA (Fireworks Assembler) on 07/26/24 at 1049 Medication Order Taking? Sig Documenting Provider Last Dose Status amLODIPine (Norvasc) 10 MG tablet [id number] Take 1 tablet (10 mg) by mouth Daily Adelaida Carrion NP 06/11/242358 azithromycin (Zithromax) 250 MG tablet [id number] Day #1: 2 tablets, and Day 2-5: 1 tablet daily Adelaida Carrion NP Active biotin 5 MG tablet [id number] Pt taking OTC (Amperion) Historical Provider, Active Calcium Citrate-Vitamin D (CITRACAL + D PO) [id number] Pt taking OTC (TrendBent) Historical Provider, Active carvedilol (Coreg) 12.5 MG tablet [id number] Take 1 tablet (12.5 mg) by mouth in the morning and 1 tablet (12.5 mg) in the evening. Take with meals. Adelaida Cariron NP 06/11/24 235 cetirizine (ZyrTEC) 10 MG tablet [id number] Take 1 tablet (10 mg) by mouth Daily Adelaida Carrion NP 06/11/24 235 DULoxetine (Cymbalta) [address] capsule [id number] Take 60 mg by mouth in the morning and 60 mg before bedtime. Do not crush or chew.. Active fluticasone (Flonase) 50 MCG/ACT nasal spray [id number] Administer 2 sprays into each nostril Daily Adelaida Carrion NP 06/11/24 235 gabapentin (Neurontin) 300 MG capsule [id number] Take 1 capsule (300 mg) by mouth in the morning and 1 capsule (300 mg) before bedtime. Due now. MAUREEN Akbar Active losartan (Cozaar) 100 MG tablet [id number] Take 1 tablet (100 mg) by mouth Daily Adelaida Carrion NP 06/11/24 235 Magnesium 400 MG capsule [id number] Pt taking OTC(BioVex) Historical Provider, Active Melatonin 12 MG tablet [id number] Take 1 tablet by mouth at bedtime Active Multiple Vitamins-Minerals (BARIATRIC MULTIVITAMINS/IRON PO) [id number] Pt taking OTC (Amperion) Historical Provider, Active nystatin (Mycostatin) 826281 UNIT/GM powder [id number] Apply 1 application topically in the morning and 1 application before bedtime. Adelaida Carrion NP Active nystatin (Mycostatin) cream [id number] Adelaida Carrion NP Active omeprazole (PriLOSEC) [address] capsule [id number] Take 1 capsule (20 mg) by mouth in the morning. Take before meals. Adelaida Carrion NP 06/11/242358 rOPINIRole (Requip) 2 MG tablet [id number] Take 1 tablet (2 mg) by mouth at bedtime MAUREEN Akbar Active spironolactone (Aldactone) 50 MG tablet [id number] Take 1 tablet (50 mg) by mouth Daily Adelaida Carrion NP 06/11/24 235 tiZANidine (Zanaflex) 4 MG tablet [id number] Take 4 mg by mouth every 8 (eight) hours if needed for muscle spasms 1-2 tablets Adelaida Carrion NP Active traZODone (Desyrel) 150 MG tablet [id number] Take 150 mg by mouth at bedtime Active Vraylar 3 MG capsule [id number] Active HPI AMS -weaned Lacosimide -denies any further headaches and dizziness -denies any recent episodes of confusion -trouble with short and termite treater memory -states termite treater is mild -forgets recent conversations and events [...] triceps, wrist extensors, wrist extensors, wrist flexor, employment law specialist strength 5/5. LUE Strength deltoid, biceps, triceps, wrist extensors, wrist extensors, wrist flexor, employment law specialist strength 5/5. RLE Strength illopsoas, quadriceps, [...] not all inclusive. Patient was admitted to [facility] from the [facility] on 08/24/2023 with acute respiratory failure and confusion thought to be secondary to metabolic encephalopathy. MOCA 03/01/24 was 26/30. She notes she did speech therapy and responded well to this. She was recently evaluated at [facility] 03/02/2024 for severe encephalopathy. She had brain [...] Averages almost 6 hours a night. ___ [facility] evaluation 02/29/2024: Brain MRI with and without [...] of the brain in July 2019 showed [id number] white matter changes with the largest area [...] 2 months documented in this encounter [facility] 05-12-2024 History of Present illness Narrative A1c [...] includes CVA. There is no history of CAD/OR, heart failure or PVD. GERD She reports [...] biotin 5 MG tablet Pt taking OTC (Amperion) Calcium Citrate-Vitamin D (CITRACAL + D PO) Pt taking OTC (TrendBent) carvedilol (COREG) 12.5 mg, Oral, 2 times [...] Daily Magnesium 400 MG capsule Pt taking OTC(BioVex) Melatonin 12 MG tablet 1 tablet, Nightly Multiple Vitamins-Minerals (BARIATRIC MULTIVITAMINS/IRON PO) Pt taking OTC (Amperion) nystatin (Mycostatin) [id number] UNIT/GM powder 1 application , 2 times [...] Anxiety 05/18/2023 Bipolar disorder with severe depression ([facility]) 05/18/2023 Brain lesion Brain vascular malformation Chronic pain disorder Closed fracture of patella 02/04/2018 Colon polyps Constipation Degenerative cervical disc Degenerative lumbar disc Depression ([facility]) 05/18/2023 Diastolic dysfunction Dizziness 05/18/2023 Dysphagia Fibromyalgia Fibromyalgia Gastrocnemius equinus GERD (gastroesophageal reflux disease) Heart murmur Hematoma of right breast Hemiparesis ([facility]) Hemiparesis, right ([facility]) Hemorrhoid int/external hemorrhoids Hiatal hernia Iron deficiency Left foot pain 03/25/2023 Lower extremity edema Mood disorder ([facility]) mixed mood disorder OSMANY (obstructive sleep apnea) Osteoporosis ([facility]) Overactive bladder Pre-diabetes Primary hypertension ([facility]) 03/25/2023 PTSD (post-traumatic stress disorder) ([facility]) Restless leg Right knee pain Right sided weakness S/P bariatric surgery Shingles Slurred speech Stroke ([facility]) 2018 Tenosynovitis, de Quervain Thoracic [...] that manages your OSMANY: Daniela Hemiparesis, right ([facility]) Stable with this from prior [...] spironolactone (Aldactone) 50 MG tablet Primary hypertension ([facility]) - Primary Please check blood pressure daily and record DASH diet Limit caffeine Take medication as directed Contact office if chest pain, pressure, dizziness, shortness of breath, swelling legs Recommend slow position changes Current meds: amlodipine, losartan Chronic kidney disease, stage 3a (HCC) ([facility]) Monitor labs at minimum every year Body mass index (BMI) 45.0-49.9, adult ([facility]) Other Visit Diagnoses Essential (primary) hypertension ([facility]) Relevant Medications amLODIPine (Norvasc) 10 MG tablet [...] that supplies your machine and tubing/filters etc: [facility] [place] Doctor that manages your OSMANY: Daniela Associated Problem(s): Hemiparesis, right (CMS/HCC) Stable with this from prior stroke documented in this encounter [facility] 05-12-2024 Instructions Adelaida Carrion NP - 05/12/2024 10:00 AM EST No changes in meds documented in this encounter [facility] 04-12-2024 Telephone encounter Note 03/10/2024 Continue Gabapentin 300 mg BID for RLS. Continue clonazepam 0.5mg PO BID for RLS. This was decreased during recent hospitalization Continue Vimpat 50mg PO BID for seizure prevention [facility] 04-12-2024 Miscellaneous Notes 03/10/2024 Continue Gabapentin 300 mg BID for RLS. Continue clonazepam 0.5mg PO BID for RLS. This was decreased during recent hospitalization Continue Vimpat 50mg PO BID for seizure prevention documented in this encounter [facility] 04-07-2024 History of Present illness Narrative [...] performance and score on it. Admitted to [facility] from the [facility] on 08/24/2023 with acute respiratory failure and confusion thought to be secondary to metabolic encephalopathy. LTME in August 2023 negative. Recently evaluated at [facility] on 03/02/2024 for severe encephalopathy. Brain MRI [...] history of alcohol/substance abuse. Reformed smoker. [place] language Cypriot. Reported relocating from [place] to [place] in 2011. Completed a bachelor's degree. 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 Currently on disability. Resides with of 26 years along with her son, grandson, and 2 dogs. Has 2 children from a prior relationship. MEDICAL HISTORY/MEDICATION: MEDICATIONS: Current Outpatient Medications Medication Instructions amLODIPine (NORVASC) 10 mg, Oral, Daily biotin 5 MG tablet Pt taking OTC (Amperion) Calcium Citrate-Vitamin D (CITRACAL + D PO) Pt taking OTC (TrendBent) carvedilol (COREG) 12.5 mg, Oral, 2 times [...] Daily Magnesium 400 MG capsule Pt taking OTCPercentil) Melatonin 12 MG tablet 1 tablet, Oral, Nightly Multiple Vitamins-Minerals (BARIATRIC MULTIVITAMINS/IRON PO) Pt taking OTC (Amperion) nystatin (Mycostatin) [id number] UNIT/GM powder 1 application , 2 times [...] design >16th %ile. Motor/Speed of Processing: Right-handed. Field Spec strength 16th %ile with right-hand, 38th %ile [...] Learning of a word list 79th %ile ([id number]), delayed recall 93rd %ile. Recognition discriminability 93rd [...] Please contact me with any questions at [phone]. documented in this encounter [facility] 03-16-2024 History of Present illness Narrative Associated Problem(s): Right bundle branch block (RBBB) determined by electrocardiography At this point I will look at her past EKG's, She has had ECHO in past No symptoms, at this time I do not think that further testing is needed Pt is having a memory test done on apr 07 in [place] Pt is anxious and afraid-pt father had dementia Spironolactone pt is asking for 50mg instead of 25mg Images from the original note were not included. Michelle Be is a 63 y.o. female presents with chief complaint of Anxiety HPI: Here for hospital follow up: AMS She was evaluated at [facility], was seen by Neurology reviewed notes from [...] biotin 5 MG tablet Pt taking OTC (Amperion) Calcium Citrate-Vitamin D (CITRACAL + D PO) Pt taking OTC (TrendBent) carvedilol (COREG) 12.5 mg, Oral, 2 times [...] Daily Magnesium 400 MG capsule Pt taking OTCPercentil) Melatonin 12 MG tablet 1 tablet, Oral, Nightly Multiple Vitamins-Minerals (BARIATRIC MULTIVITAMINS/IRON PO) Pt taking OTC (Amperion) nystatin (Mycostatin) [id number] UNIT/GM powder 1 application , 2 times [...] Anxiety 05/18/2023 Bipolar disorder with severe depression ([facility]) 05/18/2023 Brain lesion Brain vascular malformation Chronic pain disorder Closed fracture of patella 02/04/2018 Colon polyps Constipation Degenerative cervical disc Degenerative lumbar disc Depression ([facility]) 05/18/2023 Diastolic dysfunction Dizziness 05/18/2023 Dysphagia Fibromyalgia Fibromyalgia Gastrocnemius equinus GERD (gastroesophageal reflux disease) Heart murmur Hematoma of right breast Hemiparesis ([facility]) Hemiparesis, right ([facility]) Hemorrhoid int/external hemorrhoids Hiatal hernia Iron deficiency Left foot pain 03/25/2023 Lower extremity edema Mood disorder ([facility]) mixed mood disorder OSMANY (obstructive sleep apnea) Osteoporosis ([facility]) Overactive bladder Pre-diabetes Primary hypertension ([facility]) 03/25/2023 PTSD (post-traumatic stress disorder) ([facility]) Restless leg Right knee pain Right sided weakness S/P bariatric surgery Shingles Slurred speech Stroke ([facility]) 2018 Tenosynovitis, de Quervain Thoracic [...] have evaluation documented in this encounter [facility] 03-16-2024 Instructions Adelaida Carrion NP - 03/16/2024 10:00 AM EST Spironolactone: I discontinued the 25mg script for this, sent a new script to [facility], for a 50mg pill, you will take 1 pill daily Memory testing in Apr 2024 Follow up with me in early May, sooner if needed documented in this encounter [facility] 03-16-2024 Telephone encounter Note Yep, sent to [facility]. [facility] 03-16-2024 Miscellaneous Notes Yep, sent to [facility]. Patient calls and states that hospital lowered her requip to 2 mg at bed time. Okay to send as new dosage? documented in this encounter [facility] 03-15-2024 Telephone encounter Note Patient calls and states that hospital lowered her requip to 2 mg at bed time. Okay to send as new dosage? [facility] 03-14-2024 History of Present illness Narrative [...] performance and score on it. Admitted to [facility] from the [facility] on 08/24/2023 with acute respiratory failure and confusion thought to be secondary to metabolic encephalopathy. Previous LTME in August 2023 negative. Recently evaluated at [facility] on 03/02/2024 for severe encephalopathy. Brain MRI [...] history of alcohol/substance abuse. Reformed smoker. [place] language Cypriot. Reported relocating from [place] to [place] in 2011. Completed a bachelors degree. Previously [...] Lower extremity edema Mood disorder ([facility]) mixed mood disorder OSMANY (obstructive sleep apnea) Osteoporosis ([facility]) Overactive bladder Pre-diabetes Primary hypertension ([facility]) 03/25/2023 PTSD (post-traumatic stress disorder) ([facility]) Restless leg Right knee pain Right sided weakness S/P bariatric surgery Shingles Slurred speech Stroke ([facility]) 2018 Tenosynovitis, de Quervain Thoracic back pain, unspecified back pain laterality, unspecified chronicity Tobacco dependence Vertigo, benign paroxysmal Yeast infection of the skin 05/18/2023 MEDICATIONS: Current Outpatient Medications Medication Instructions amLODIPine (NORVASC) 10 mg, Oral, Daily biotin 5 MG tablet Pt taking OTC (Amperion) Calcium Citrate-Vitamin D (CITRACAL + D PO) Pt taking OTC (TrendBent) carvedilol (COREG) 12.5 mg, Oral, 2 times [...] Daily Magnesium 400 MG capsule Pt taking OTCPercentil) Melatonin 12 MG tablet 1 tablet, Oral, Nightly Multiple Vitamins-Minerals (BARIATRIC MULTIVITAMINS/IRON PO) Pt taking OTC (Amperion) nystatin (Mycostatin) [id number] UNIT/GM powder 1 application , Topical, 2 [...] Please contact me with any questions at [phone]. documented in this encounter [facility] 02-16-2024 History of Present illness Narrative [...] biotin 5 MG tablet Pt taking OTC (Amperion) Calcium Citrate-Vitamin D (CITRACAL + D PO) Pt taking OTC (TrendBent) carvedilol (COREG) 12.5 mg, Oral, 2 times [...] Daily Magnesium 400 MG capsule Pt taking OTC(BioVex) Melatonin 12 MG tablet 1 tablet, Oral, Nightly Multiple Vitamins-Minerals (BARIATRIC MULTIVITAMINS/IRON PO) Pt taking OTC (Amperion) nystatin (Mycostatin) [id number] UNIT/GM powder 1 application , Topical, 2 [...] Anxiety 05/18/2023 Bipolar disorder with severe depression ([facility]) 05/18/2023 Brain lesion Brain vascular malformation Chronic pain disorder Closed fracture of patella 02/04/2018 Colon polyps Constipation Degenerative cervical disc Degenerative lumbar disc Depression ([facility]) 05/18/2023 Diastolic dysfunction Dizziness 05/18/2023 Dysphagia Fibromyalgia Fibromyalgia Gastrocnemius equinus GERD (gastroesophageal reflux disease) Heart murmur Hematoma of right breast Hemiparesis ([facility]) Hemiparesis, right ([facility]) Hemorrhoid int/external hemorrhoids Hiatal hernia Iron deficiency Left foot pain 03/25/2023 Lower extremity edema Mood disorder ([facility]) mixed mood disorder OSMANY (obstructive sleep apnea) Osteoporosis ([facility]) Overactive bladder Pre-diabetes Primary hypertension ([facility]) 03/25/2023 PTSD (post-traumatic stress disorder) ([facility]) Restless leg Right knee pain Right sided weakness S/P bariatric surgery Shingles Slurred speech Stroke ([facility]) 2018 Tenosynovitis, de Quervain Thoracic [...] nursing note reviewed. Exam conducted with a ekg monitor present. Constitutional: General: She is not in [...] conditions allow documented in this encounter [facility] 01-28-2024 History of Present illness Narrative [...] ER fu for UTI and dehydration. See [facility] for HPI Was sent home on Bactrim. Feels completely fine now, no fever, chills, malodorous urine, no constipation diarrhea or abd pain SUBJECTIVE: MEDICATIONS: Current Outpatient Medications Medication Instructions amLODIPine (NORVASC) 10 mg, Oral, Daily biotin 5 MG tablet Pt taking OTC (Amperion) Calcium Citrate-Vitamin D (CITRACAL + D PO) Pt taking OTC (TrendBent) carvedilol (COREG) 12.5 mg, Oral, 2 times [...] Daily Magnesium 400 MG capsule Pt taking OTC(BioVex) Melatonin 12 MG tablet 1 tablet, Oral, Nightly Multiple Vitamins-Minerals (BARIATRIC MULTIVITAMINS/IRON PO) Pt taking OTC (Amperion) nystatin (Mycostatin) [id number] UNIT/GM powder 1 application , Topical, 2 [...] Anxiety 05/18/2023 Bipolar disorder with severe depression ([facility]) 05/18/2023 Brain lesion Brain vascular malformation Chronic pain disorder Closed fracture of patella 02/04/2018 Colon polyps Constipation Degenerative cervical disc Degenerative lumbar disc Depression (CMS/HCC) 05/18/2023 Diastolic dysfunction Dizziness 05/18/2023 Dysphagia Fibromyalgia Fibromyalgia Gastrocnemius equinus GERD (gastroesophageal reflux disease) Heart murmur Hematoma of right breast Hemiparesis ([facility]) Hemiparesis, right ([facility]) Hemorrhoid int/external hemorrhoids Hiatal hernia Iron deficiency Left foot pain 03/25/2023 Lower extremity edema Mood disorder ([facility]) mixed mood disorder OSMANY (obstructive sleep apnea) Osteoporosis ([facility]) Overactive bladder Pre-diabetes Primary hypertension ([facility]) 03/25/2023 PTSD (post-traumatic stress disorder) ([facility]) Restless leg Right knee pain Right sided weakness S/P bariatric surgery Shingles Slurred speech Stroke ([facility]) 2018 Tenosynovitis, de Quervain Thoracic [...] of the risks of continued smoking: stroke, OR, all forms of cancer, lung disease, and [...] Relevant Orders Flu vaccine, MDCK, quadrivalent, PF (BHS209) (Flucelvax single dose syringe) Associated Problem(s): Tobacco dependence The patient has been advised of the risks of continued smoking: stroke, OR, all forms of cancer, lung disease, and . Options for quitting smoking include: cold turkey, hypnosis, acupuncture, nicotine replacement meds (gum, lozenges, and patches), Buproprion, and Varenicline. At this time pt is encouraged to evaluate their goals for wanting to quit smoking, and reach out to provider when ready to start this process documented in this encounter [facility] 01-04-2024 History of Present illness Narrative [...] compliance problems. There is no history of CAD/OR, heart failure or PVD. Identifiable causes of hypertension include sleep apnea. SUBJECTIVE: MEDICATIONS: Current Outpatient Medications Medication Instructions amLODIPine (NORVASC) 10 mg, Oral, Daily biotin 5 MG tablet Pt taking OTC (Amperion) Calcium Citrate-Vitamin D (CITRACAL + D PO) Pt taking OTC (TrendBent) carvedilol (COREG) 12.5 mg, Oral, 2 times [...] Daily Magnesium 400 MG capsule Pt taking OTCPercentil) Melatonin 12 MG tablet 1 tablet, Oral, Nightly Multiple Vitamins-Minerals (BARIATRIC MULTIVITAMINS/IRON PO) Pt taking OTC (Amperion) nystatin (Mycostatin) [id number] UNIT/GM powder 1 application , Topical, 2 [...] Anxiety 05/18/2023 Bipolar disorder with severe depression ([facility]) 05/18/2023 Brain lesion Brain vascular malformation Chronic pain disorder Closed fracture of patella 02/04/2018 Colon polyps Constipation Degenerative cervical disc Degenerative lumbar disc Depression ([facility]) 05/18/2023 Diastolic dysfunction Dizziness 05/18/2023 Dysphagia Fibromyalgia Fibromyalgia Gastrocnemius equinus GERD (gastroesophageal reflux disease) Heart murmur Hematoma of right breast Hemiparesis ([facility]) Hemiparesis, right ([facility]) Hemorrhoid int/external hemorrhoids Hiatal hernia Iron deficiency Left foot pain 03/25/2023 Lower extremity edema Mood disorder ([facility]) mixed mood disorder OSMANY (obstructive sleep apnea) Osteoporosis ([facility]) Overactive bladder Pre-diabetes Primary hypertension ([facility]) 03/25/2023 PTSD (post-traumatic stress disorder) ([facility]) Restless leg Right knee pain Right sided weakness S/P bariatric surgery Shingles Slurred speech Stroke ([facility]) 2018 Tenosynovitis, de Quervain Thoracic [...] List Items Addressed This Visit Primary hypertension ([facility]/HCC) At goal today, no med dose changes [...] nasal spray documented in this encounter [facility] 12-09-2023 History of Present illness Narrative [...] machine. She is normally seen at the [facility] and was last seen on [...] Heart murmur Hematoma of right breast Hemiparesis ([facility]) Hemiparesis, right ([facility]) Hemorrhoid int/external hemorrhoids Hiatal hernia Iron deficiency Left foot pain 03/25/2023 Lower extremity edema Mood disorder ([facility]) mixed mood disorder OSMANY (obstructive sleep apnea) Osteoporosis ([facility]) Overactive bladder Pre-diabetes Primary hypertension ([facility]) 03/25/2023 PTSD (post-traumatic stress disorder) ([facility]) Restless leg Right knee pain Right sided weakness S/P bariatric surgery Shingles Slurred speech Stroke ([facility]) 2018 Tenosynovitis, de Quervain Thoracic [...] melatonin. She was last seen in the [facility] on June 24, 2023. Since [...] for short term insomnia and not for halfway insomnia. She is compliant on her download [...] was counseled on the risks of stroke, OR, and sudden with OSMANY, along with the [...] one year documented in this encounter [facility] 12-08-2023 History of Present illness Narrative [...] Anxiety 05/18/2023 Bipolar disorder with severe depression ([facility]) 05/18/2023 Brain lesion Brain vascular malformation Chronic pain disorder Closed fracture of patella 02/04/2018 Colon polyps Constipation Degenerative cervical disc Degenerative lumbar disc Depression ([facility]HCC) 05/18/2023 Diastolic dysfunction Dizziness 05/18/2023 Dysphagia Fibromyalgia Fibromyalgia Gastrocnemius equinus GERD (gastroesophageal reflux disease) Heart murmur Hematoma of right breast Hemiparesis ([facility]) Hemiparesis, right ([facility]) Hemorrhoid int/external hemorrhoids Hiatal hernia Iron deficiency Left foot pain 03/25/2023 Lower extremity edema Mood disorder ([facility]) mixed mood disorder OSMANY (obstructive sleep apnea) Osteoporosis ([facility]) Overactive bladder Pre-diabetes Primary hypertension ([facility]) 03/25/2023 PTSD (post-traumatic stress disorder) ([facility]) Restless leg Right knee pain Right sided weakness S/P bariatric surgery Shingles Slurred speech Stroke ([facility]) 2018 Tenosynovitis, de Quervain Thoracic [...] Review Audit Reviewed by Festus Baron MA ([employer]works [employer]) on 12/08/23 at 1525 Medication Order Taking? Sig Documenting Provider Last Dose Status amLODIPine (Norvasc) 10 MG tablet [id number] Take 1 tablet (10 mg) by mouth Daily Adelaida Carrion NP Active biotin 5 MG tablet [id number] Pt taking OTC ([facility]) Historical ProviderMD Active Calcium Citrate-Vitamin D (CITRACAL + D PO) 80309724 Pt taking OTC ([facility]) Historical ProviderMD Active Cariprazine HCl (Vraylar) 4.5 MG capsule [id number] Take 4.5 mg by mouth Daily Active carvedilol (Coreg) 12.5 MG tablet [id number] Take 1 tablet (12.5 mg) by mouth in the morning and 1 tablet (12.5 mg) in the evening. Take with meals. Adelaida Carrion NP Active cetirizine (ZyrTEC) 10 MG tablet [id number] Take 1 tablet (10 mg) by mouth Daily Adelaida Carrion NP Active clonazePAM (KlonoPIN) 1 MG tablet [id number] Take 1 tablet (1 mg) by mouth 2 (two) times a day as needed for anxiety Do not start before October 16, 2023. Sonam Brown NP 11/15/23 235 DULoxetine (Cymbalta) [address] capsule [id number] Take 60 mg by mouth in the morning and 60 mg before bedtime. Do not crush or chew.. Active fluconazole (Diflucan) 150 MG tablet [id number] 1 pill every 3 days for a total of 3 doses Adelaida Carrion NP Active fluticasone (Flonase) 50 MCG/ACT nasal spray [id number] Administer 2 sprays into each nostril Daily Adelaida Carrion NP 11/04/23 235 gabapentin (Neurontin) 300 MG capsule [id number] Take 1 capsule (300 mg) by mouth in the morning and 1 capsule (300 mg) before bedtime. Sonam Brown NP Active losartan (Cozaar) 100 MG tablet [id number] Take 1 tablet (100 mg) by mouth Daily Adelaida Carrion NP Active Magnesium 400 MG capsule [id number] Pt taking OTC([facility]) Historical ProviderMD Active Melatonin 12 MG tablet [id number] Take 1 tablet by mouth at bedtime Active Multiple Vitamins-Minerals (BARIATRIC MULTIVITAMINS/IRON PO) [id number] Pt taking OTC ([facility]) Historical ProviderMD Active nystatin (Mycostatin) 783463 UNIT/GM powder [id number] Apply 1 application topically in the morning and 1 application before bedtime. Adelaida Carrion NP Active omeprazole (PriLOSEC) [address] capsule [id number] Take 1 capsule (20 mg) by mouth in the morning. Take before meals. Adelaida Carrion HYDRAULIC MODELING ENGINEER Active rOPINIRole (Requip) 4 MG tablet [id number] Take 1 tablet (4 mg) by mouth at bedtime Sonam Brown NP Active spironolactone (Aldactone) 25 MG tablet [id number] Take 2 tablets (50 mg) by mouth Daily Adelaidamonse Carrion NP Active tiZANidine (Zanaflex) 2 MG tablet [id number] Take 2 mg by mouth every 8 (eight) hours Adelaida Carrion NP Active traZODone (Desyrel) 150 MG tablet [id number] Take 150 mg by mouth at bedtime Active HPI AMS -Patient was admitted to [facility] from the [facility] on 08/24/2023 with acute respiratory failure and confusion thought to be secondary to metabolic encephalopathy. Patient denies any new hospital stays. -She was seen by Neurology who thought she had a toxic encephalopathy secondary to medication overuse. -She was monitored on LTME which did not show any evidence of seizures. -After she was discharged she had a short stay at the halfway facility on 09/03/2023 and she was discharged [...] ankle and great toe bilaterally. Coordination Right: Xjtmcx-pu-ztbr normal. Rapid alternating movement normal.Left: Bspjxi-xr-afdo normal. Rapid alternating movement normal. Gait Casual gait is normal including stance, stride, and arm swing. Motor Examination RUE Strength deltoid, biceps, triceps, wrist extensors, wrist extensors, wrist flexor, employment law specialist strength 5/5. LUE Strength deltoid, biceps, triceps, wrist extensors, wrist extensors, wrist flexor, employment law specialist strength 5/5. RLE Strength illopsoas, quadriceps, [...] not all inclusive. Patient was admitted to [facility] from the [facility] on 08/24/2023 with acute respiratory failure [...] of the brain in July 2019 showed vgcn-tk-adidyxdl white matter changes with the largest area [...] further recommendations documented in this encounter [facility] 05-18-2023 History of Present illness Narrative [...] (BARIATRIC MULTIVITAMINS/IRON PO) Bariatric Multivitamins/Iron nystatin (Mycostatin) 210080 UNIT/GM powder 1 application , Topical, 2 [...] Anxiety 05/18/2023 Bipolar disorder with severe depression ([facility]) 05/18/2023 Brain vascular malformation Chronic pain disorder Colon polyps Constipation Degenerative cervical disc Degenerative lumbar disc Depression ([facility]) 05/18/2023 Diastolic dysfunction Dizziness 05/18/2023 Dysphagia Fibromyalgia Gastrocnemius equinus GERD (gastroesophageal reflux disease) Heart murmur Hematoma of right breast Hemiparesis, right ([facility]) Hemorrhoid int/external hemorrhoids Hiatal hernia Iron deficiency Left foot pain 03/25/2023 Lower extremity edema Mood disorder ([facility]) mixed mood disorder OSMANY (obstructive sleep apnea) Osteoporosis ([facility]) Overactive bladder Pre-diabetes Primary hypertension ([facility]) 03/25/2023 PTSD (post-traumatic stress disorder) ([facility]) Restless leg Right knee pain Right sided weakness S/P bariatric surgery Shingles Slurred speech Stroke ([facility]) 2018 Tenosynovitis, de Quervain Thoracic [...] and prn documented in this encounter [facility] 03-23-2023 Procedure note [facility] 12-19-2022 Evaluation note Encounter Date Diagnosis Assessment Notes Dec, Skin candidiasis (ICD-10 - B37.2) Drink plenty fluids, get plenty of rest. Continue home medications as prescribed. Take the Diflucan as prescribed until gone. Follow-up with your family physician if no improvement in 2 to 3 days [place] Other 08-17-2023 Discharge summary Author Eduardo barrett [facility] November 20, 2022 6:38am Note Date/Time November 20, 2022 6: 38am [facility] [address] [place] [address] Discharge Summary Signed Patient: Michelle Be MR#: [id number] : 1960 Acct:[id number] Age/Sex: 61 / F Adm Date: 3 Loc: 1S Room: 7K6678-[address]: Gaudencio Monk MD Copies to: MD Adelaida Álvarez, HYDRAULIC MODELING ENGINEER-C~ Providers Date of Discharge: 11/20/22 Discharging Provider: [...] time.? She reports moving to [place] from [place] in 2011 and was then diagnosed with bipolar disorder at [facility] in [place], where she still follows with a therapist.? Shereports that she has been with 7 therapists in the last 9 years and is currentlycompleting EMDR with her current therapist. Past hospitalizations: Her most recent hospitalization was 5 years ago [facility] for the same feeling she is experiencing [...] since 2010 due to her fibromyalgia.? [facility]. Relationships: Reports having people [...] self or stop treatment, but to call [employer], 911 or come to the nearest emergency [...] 1 tab PO QID Follow Up: [facility] [Outside] [facility] [Outside] ( risk compliance manager: (Insert date/time here) Therapy:? (insert date/time [...] Eduardo Monk MD> 11/20/22 0638 [facility] Work Phone: 1(493) 435-580108-16-2023 Progress note Author Eduarod barrett [facility] November 19, 2022 6:25am Note Date/Time November 19, 2022 6: 25am [facility] [address] [place] [address] Psychiatry Progress Note Signed Patient: Michelle Be MR#: [id number] : 1960 Acct:[id number] Age/Sex: 61 / F Adm Date: 3 Loc: Room: [address] [place] [address] Type : ADM IN Attending Dr: Gaudencio [...] 11/19/22 0625 [facility] Work Phone: 1(844) 800-455408-15-2023 Progress note Author Eduardo barrett [facility] November 18, 2022 11:01am Note Date/Time November 18, 2022 10 :11am [facility] [address] [place] [address] Psychiatry Progress Note Signed Patient: Michelle Be MR#: [id number] : 1960 Acct:[id number] Age/Sex: 61 / F Adm Date: 3 Loc: Room: [address] [place] [address] Type : ADM IN Attending Dr: Gaudencio [...] by requesting a schedule 2 referring to [facility] for pain management specifically every 4-6 hours [...] signed by MD DA Rangel> 11/18/22 1011 [facility] Work Phone: 1(889) 652-160908-14-2023 History and physical note Author Eduardo barrett [facility] November 17, 2022 12:48pm Note Date/Time November 17, 2022 12 :48pm [facility] [address] [place] [address] Psychiatry H&P Signed Patient: Michelle Be MR#: [id number] : 1960 Acct:[id number] Age/Sex: 61 / F Adm Date: 3 Loc: Room: [address] [place] [address] Type: ADM IN Attending Dr: Gaudencio Monk [...] time. She reports moving to [place] from [place] in 2011 and was then diagnosed with bipolar disorder at [facility] in [place], where she still follows with a therapist. Shereports that she has been with 7 therapists in the last 9 years and is currentlycompleting EMDR with her current therapist. Past hospitalizations: Her most recent hospitalization was 5 years ago [facility] in [place] for the same feeling she is experiencing [...] since 2010 due to her fibromyalgia. [facility]. Relationships: Reports having [...] bilaterally. CN XII: Tongue protrusion midline [facility] Medical History (Updated 11/17/22 @ 10:42 [...] signed by Eduardo Monk MD> 11/17/22 1248 [facility] Work Phone: 1(886) 657-374803-23-2023 NoteCONSULTATION CONSULTATION DATE: 06/26/2022 To: Nurse Carrion [...] joint injection under fluoroscopic guidance.[id number] NotePROCEDURE: XR SHOULDER RT 2V or > [...] Electronically authenticated by: KINGSLEY CLEMENTS Date: 2022-05-09 09:21[facility]01-23-2023 NotePROCEDURE: XR WRIST LT MIN [...] Electronically authenticated by: KINGSLEY CLEMENTS Date: 2022-04-28 13:31[facility]12-29-2022 NoteCONSULTATION CONSULTATION DATE: 04/03/2022 HISTORY [...] three months, unless otherwise indicated.[facility] [id number] NoteCONSULTATION CONSULTATION DATE: 01/02/2022 This is a [...] to [facility] in [place] for the compounded cream. She needs a [...] months' time unless otherwise indicated.[facility] [id number] NotePROCEDURE: XR ANKLE RT MIN 3 VIEWS, [...] Electronically authenticated by: KINGSLEY CLEMENTS Date: 2022-01-01 13:11[facility]09-28-2022 NotePROCEDURE: XR ANKLE RT MIN [...] Electronically authenticated by: KINGSLEY CLEMENTS Date: 2022-01-01 13:11[facility]08-18-2022 NotePROCEDURE: XR FOOT RT MIN 3 VIEWS HISTORY: Pain in right foot , chronic COMPARISON: XR foot right 2020 FINDINGS: BONES:No fracture, dislocation, bone lesion. Small calcaneal degenerative enthesophytes. SOFT TISSUES:No visible soft tissue swelling. EFFUSION:None visible. OTHER: Negative. IMPRESSION: 1. No acute bone abnormality or significant degenerative joint disease. Electronically authenticated by: KINGSLEY CLEMENTS Date: 2021-11-21 16:13[facility]06-30-2022 NoteCONSULTATION CONSULTATION DATE: 10/03/2021 This [...] patient agrees with the plan of care. [facility] Signed and Approved by: ZELDA MCDANIEL . 10/10/2021 10:22:00[facility]* Diagnosis Onset Date Resolution Status Allergies acute Bipolar 2 disorder acute Hypertension acute Morbid obesity with BMI of 45.0-49.9, adult acute OSMANY (obstructive sleep apnea) acute Restless legs syndrome acute [facility] Work Phone: Evaluation noteNo InformationNort [employer] Other Evaluation noteNo assessment information available [facility] Work Phone: Evaluation note* Diagnosis Encounter for annual wellness visit (AWV) in Medicare patient- Primary OSMANY (obstructive sleep apnea) Obstructive sleep apnea (adult) (pediatric) Chronic pain disorder Chronic pain syndrome Gastroesophageal reflux disease, unspecified whether esophagitis present Overactive bladder Hypertonicity of bladder Lower extremity edema Edema Pre-diabetes Other abnormal glucose Morbid obesity ([facility]) Morbid obesity Yeast infection of the skin Candidiasis of skin and nails Tobacco dependence Tobacco use disorder Mood disorder ([facility]) Unspecified episodic mood disorder Primary hypertension ([facility]) Unspecified essential hypertension Left hip pain Pain in joint, pelvic region and thigh Open wound of anterior abdominal wall, initial encounter documented in this encounter [facility] HealthcareEvaluation note* Diagnosis Acute cystitis with hematuria- Primary documented in this encounter [facility] HealthcareEvaluation note* Diagnosis Left foot pain- Primary Pain in soft tissues of limb Primary hypertension ([facility]) Unspecified essential hypertension Class 3 severe obesity due to excess calories without serious comorbidity with body mass index (BMI) of 45.0 to 49.9 in adult ([facility]) Encounter for annual wellness visit (AWV) in Medicare patient- Primary OSMANY (obstructive sleep apnea) Obstructive sleep apnea (adult) (pediatric) Chronic pain disorder Chronic pain syndrome Gastroesophageal reflux disease, unspecified whether esophagitis present Overactive bladder Hypertonicity of bladder Lower extremity edema Edema Pre-diabetes Other abnormal glucose Morbid obesity ([facility]) Morbid obesity Yeast infection of the skin Candidiasis of skin and nails Tobacco dependence Tobacco use disorder Mood disorder ([facility]) Unspecified episodic mood disorder Primary hypertension ([facility]) Unspecified essential hypertension Left hip pain Pain in joint, pelvic region and thigh Open wound of anterior abdominal wall, initial encounter Primary hypertension ([facility])- Primary Unspecified essential hypertension Yeast infection of the skin Candidiasis of skin and nails Morbid obesity ([facility]) Morbid obesity Primary hypertension ([facility])- Primary Unspecified essential hypertension Encounter for screening mammogram for malignant neoplasm of breast Gastroesophageal reflux disease, unspecified whether esophagitis present Acute gout of right foot, unspecified cause Osteoporosis, unspecified osteoporosis type, unspecified pathological fracture presence ([facility]) Morbid obesity ([facility]) Morbid obesity Pre-diabetes Other abnormal glucose Anemia, unspecified type Vitamin deficiency Unspecified vitamin deficiency Post-viral cough syndrome Primary hypertension ([facility])- Primary Unspecified essential hypertension Allergic rhinitis, unspecified Acute cough Morbid obesity ([facility]) Morbid obesity Former cigarette smoker Personal history of tobacco use, presenting hazards to health Toxic metabolic encephalopathy- Primary Hemiparesis, right ([facility]) Unspecified hemiplegia affecting unspecified side Acute respiratory failure with hypoxia ([facility]) Heart murmur Undiagnosed cardiac murmurs Primary hypertension ([facility]) Unspecified essential hypertension Morbid obesity ([facility]) Morbid obesity Bipolar disorder with severe depression ([facility]) Slurred speech Other speech disturbance Bilateral lower extremity edema- Primary Primary hypertension ([facility]) Unspecified essential hypertension Lower extremity edema Edema Essential (primary) hypertension ([facility]) Unspecified essential hypertension Gastro-esophageal reflux disease without esophagitis Allergic rhinitis, unspecified Bilateral lower extremity edema- Primary Morbid (severe) obesity due to excess calories ([facility]) Body mass index (BMI) 45.0-49.9, adult ([facility]) Pre-diabetes Other abnormal glucose Bilateral lower extremity edema- Primary Essential (primary) hypertension ([facility]) Unspecified essential hypertension Allergic rhinitis, unspecified OSMANY (obstructive sleep apnea) Obstructive sleep apnea (adult) (pediatric) Primary hypertension ([facility]) Unspecified essential hypertension Morbid obesity ([facility]) Morbid obesity Acute cystitis without hematuria- Primary Tobacco dependence Tobacco use disorder Needs flu shot Need for prophylactic vaccination and inoculation against influenza Morbid obesity ([facility]) Morbid obesity documented in this encounter [facility] HealthcareEvaluation note* Diagnosis Left foot pain- Primary Pain in soft tissues of limb Primary hypertension ([facility]) Unspecified essential hypertension Class 3 severe obesity due to excess calories without serious comorbidity with body mass index (BMI) of 45.0 to 49.9 in adult ([facility]) Encounter for annual wellness visit (AWV) in Medicare patient- Primary OSMANY (obstructive sleep apnea) Obstructive sleep apnea (adult) (pediatric) Chronic pain disorder Chronic pain syndrome Gastroesophageal reflux disease, unspecified whether esophagitis present Overactive bladder Hypertonicity of bladder Lower extremity edema Edema Pre-diabetes Other abnormal glucose Morbid obesity ([facility]) Morbid obesity Yeast infection of the skin Candidiasis of skin and nails Tobacco dependence Tobacco use disorder Mood disorder ([facility]) Unspecified episodic mood disorder Primary hypertension ([facility]) Unspecified essential hypertension Left hip pain Pain in joint, pelvic region and thigh Open wound of anterior abdominal wall, initial encounter Primary hypertension ([facility])- Primary Unspecified essential hypertension Yeast infection of the skin Candidiasis of skin and nails Morbid obesity ([facility]) Morbid obesity Primary hypertension ([facility])- Primary Unspecified essential hypertension Encounter for screening mammogram for malignant neoplasm of breast Gastroesophageal reflux disease, unspecified whether esophagitis present Acute gout of right foot, unspecified cause Osteoporosis, unspecified osteoporosis type, unspecified pathological fracture presence ([facility]) Morbid obesity ([facility]) Morbid obesity Pre-diabetes Other abnormal glucose Anemia, unspecified type Vitamin deficiency Unspecified vitamin deficiency Post-viral cough syndrome Primary hypertension ([facility])- Primary Unspecified essential hypertension Allergic rhinitis, unspecified Acute cough Morbid obesity ([facility]) Morbid obesity Former cigarette smoker Personal history of tobacco use, presenting hazards to health Toxic metabolic encephalopathy- Primary Hemiparesis, right ([facility]) Unspecified hemiplegia affecting unspecified side Acute respiratory failure with hypoxia ([facility]) Heart murmur Undiagnosed cardiac murmurs Primary hypertension ([facility]) Unspecified essential hypertension Morbid obesity ([facility]) Morbid obesity Bipolar disorder with severe depression ([facility]) Slurred speech Other speech disturbance Bilateral lower extremity edema- Primary Primary hypertension ([facility]) Unspecified essential hypertension Lower extremity edema Edema Essential (primary) hypertension ([facility]) Unspecified essential hypertension Gastro-esophageal reflux disease without esophagitis Allergic rhinitis, unspecified Bilateral lower extremity edema- Primary Morbid (severe) obesity due to excess calories ([facility]) Body mass index (BMI) 45.0-49.9, adult ([facility]) Pre-diabetes Other abnormal glucose Bilateral lower extremity edema- Primary Essential (primary) hypertension ([facility]) Unspecified essential hypertension Allergic rhinitis, unspecified OSMANY (obstructive sleep apnea) Obstructive sleep apnea (adult) (pediatric) Primary hypertension ([facility]) Unspecified essential hypertension Morbid obesity ([facility]) Morbid obesity Acute cystitis without hematuria- Primary Tobacco dependence Tobacco use disorder Needs flu shot Need for prophylactic vaccination and inoculation against influenza Morbid obesity ([facility]) Morbid obesity Restless leg Restless legs syndrome (RLS) documented in this encounter [facility] HealthcareEvaluation note* Diagnosis Left foot pain- Primary Pain in soft tissues of limb Primary hypertension ([facility]) Unspecified essential hypertension Class 3 severe obesity due to excess calories without serious comorbidity with body mass index (BMI) of 45.0 to 49.9 in adult ([facility]) Encounter for annual wellness visit (AWV) in Medicare patient- Primary OSMANY (obstructive sleep apnea) Obstructive sleep apnea (adult) (pediatric) Chronic pain disorder Chronic pain syndrome Gastroesophageal reflux disease, unspecified whether esophagitis present Overactive bladder Hypertonicity of bladder Lower extremity edema Edema Pre-diabetes Other abnormal glucose Morbid obesity ([facility]) Morbid obesity Yeast infection of the skin Candidiasis of skin and nails Tobacco dependence Tobacco use disorder Mood disorder ([facility]) Unspecified episodic mood disorder Primary hypertension ([facility]) Unspecified essential hypertension Left hip pain Pain in joint, pelvic region and thigh Open wound of anterior abdominal wall, initial encounter Primary hypertension ([facility])- Primary Unspecified essential hypertension Yeast infection of the skin Candidiasis of skin and nails Morbid obesity ([facility]) Morbid obesity Primary hypertension ([facility])- Primary Unspecified essential hypertension Encounter for screening mammogram for malignant neoplasm of breast Gastroesophageal reflux disease, unspecified whether esophagitis present Acute gout of right foot, unspecified cause Osteoporosis, unspecified osteoporosis type, unspecified pathological fracture presence ([facility]) Morbid obesity ([facility]) Morbid obesity Pre-diabetes Other abnormal glucose Anemia, unspecified type Vitamin deficiency Unspecified vitamin deficiency Post-viral cough syndrome Primary hypertension ([facility])- Primary Unspecified essential hypertension Allergic rhinitis, unspecified Acute cough Morbid obesity ([facility]) Morbid obesity Former cigarette smoker Personal history of tobacco use, presenting hazards to health Toxic metabolic encephalopathy- Primary Hemiparesis, right ([facility]) Unspecified hemiplegia affecting unspecified side Acute respiratory failure with hypoxia ([facility]) Heart murmur Undiagnosed cardiac murmurs Primary hypertension ([facility]) Unspecified essential hypertension Morbid obesity ([facility]) Morbid obesity Bipolar disorder with severe depression ([facility]) Slurred speech Other speech disturbance Bilateral lower extremity edema- Primary Primary hypertension ([facility]) Unspecified essential hypertension Lower extremity edema Edema Essential (primary) hypertension ([facility]) Unspecified essential hypertension Gastro-esophageal reflux disease without esophagitis Allergic rhinitis, unspecified Bilateral lower extremity edema- Primary Morbid (severe) obesity due to excess calories ([facility]) Body mass index (BMI) 45.0-49.9, adult ([facility]) Pre-diabetes Other abnormal glucose Bilateral lower extremity edema- Primary Essential (primary) hypertension ([facility]) Unspecified essential hypertension Allergic rhinitis, unspecified OSMANY (obstructive sleep apnea) Obstructive sleep apnea (adult) (pediatric) Primary hypertension ([facility]) Unspecified essential hypertension Morbid obesity ([facility]) Morbid obesity Acute cystitis without hematuria- Primary Tobacco dependence Tobacco use disorder Needs flu shot Need for prophylactic vaccination and inoculation against influenza Morbid obesity ([facility]) Morbid obesity Well woman exam with routine gynecological exam- Primary Routine gynecological examination Morbid obesity ([facility]) Morbid obesity documented in this encounter [facility] HealthcareEvaluation note* Diagnosis Left foot pain- Primary Pain in soft tissues of limb Primary hypertension ([facility]) Unspecified essential hypertension Class 3 severe obesity due to excess calories without serious comorbidity with body mass index (BMI) of 45.0 to 49.9 in adult ([facility]) Encounter for annual wellness visit (AWV) in Medicare patient- Primary OSMANY (obstructive sleep apnea) Obstructive sleep apnea (adult) (pediatric) Chronic pain disorder Chronic pain syndrome Gastroesophageal reflux disease, unspecified whether esophagitis present Overactive bladder Hypertonicity of bladder Lower extremity edema Edema Pre-diabetes Other abnormal glucose Morbid obesity ([facility]) Morbid obesity Yeast infection of the skin Candidiasis of skin and nails Tobacco dependence Tobacco use disorder Mood disorder ([facility]) Unspecified episodic mood disorder Primary hypertension ([facility]) Unspecified essential hypertension Left hip pain Pain in joint, pelvic region and thigh Open wound of anterior abdominal wall, initial encounter Primary hypertension ([facility])- Primary Unspecified essential hypertension Yeast infection of the skin Candidiasis of skin and nails Morbid obesity ([facility]) Morbid obesity Primary hypertension ([facility])- Primary Unspecified essential hypertension Encounter for screening mammogram for malignant neoplasm of breast Gastroesophageal reflux disease, unspecified whether esophagitis present Acute gout of right foot, unspecified cause Osteoporosis, unspecified osteoporosis type, unspecified pathological fracture presence ([facility]) Morbid obesity ([facility]) Morbid obesity Pre-diabetes Other abnormal glucose Anemia, unspecified type Vitamin deficiency Unspecified vitamin deficiency Post-viral cough syndrome Primary hypertension ([facility])- Primary Unspecified essential hypertension Allergic rhinitis, unspecified Acute cough Morbid obesity ([facility]) Morbid obesity Former cigarette smoker Personal history of tobacco use, presenting hazards to health Toxic metabolic encephalopathy- Primary Hemiparesis, right ([facility]) Unspecified hemiplegia affecting unspecified side Acute respiratory failure with hypoxia ([facility]) Heart murmur Undiagnosed cardiac murmurs Primary hypertension ([facility]) Unspecified essential hypertension Morbid obesity ([facility]) Morbid obesity Bipolar disorder with severe depression ([facility]) Slurred speech Other speech disturbance Bilateral lower extremity edema- Primary Primary hypertension ([facility]) Unspecified essential hypertension Lower extremity edema Edema Essential (primary) hypertension ([facility]) Unspecified essential hypertension Gastro-esophageal reflux disease without esophagitis Allergic rhinitis, unspecified Bilateral lower extremity edema- Primary Morbid (severe) obesity due to excess calories ([facility]) Body mass index (BMI) 45.0-49.9, adult ([facility]) Pre-diabetes Other abnormal glucose Bilateral lower extremity edema- Primary Essential (primary) hypertension ([facility]) Unspecified essential hypertension Allergic rhinitis, unspecified OSMANY (obstructive sleep apnea) Obstructive sleep apnea (adult) (pediatric) Primary hypertension ([facility]) Unspecified essential hypertension Morbid obesity ([facility]) Morbid obesity Acute cystitis without hematuria- Primary Tobacco dependence Tobacco use disorder Needs flu shot Need for prophylactic vaccination and inoculation against influenza Morbid obesity (CMS/HCC) Morbid obesity Well woman exam with routine gynecological exam- Primary Routine gynecological examination Morbid obesity (CMS/HCC) Morbid obesity Essential (primary) hypertension ([facility]) Unspecified essential hypertension Allergic rhinitis, unspecified documented in this encounter [facility] HealthcareEvaluation note* Diagnosis Left foot pain- Primary Pain in soft tissues of limb Primary hypertension ([facility]) Unspecified essential hypertension Class 3 severe obesity due to excess calories without serious comorbidity with body mass index (BMI) of 45.0 to 49.9 in adult ([facility]) Encounter for annual wellness visit (AWV) in Medicare patient- Primary OSMANY (obstructive sleep apnea) Obstructive sleep apnea (adult) (pediatric) Chronic pain disorder Chronic pain syndrome Gastroesophageal reflux disease, unspecified whether esophagitis present Overactive bladder Hypertonicity of bladder Lower extremity edema Edema Pre-diabetes Other abnormal glucose Morbid obesity ([facility]) Morbid obesity Yeast infection of the skin Candidiasis of skin and nails Tobacco dependence Tobacco use disorder Mood disorder ([facility]) Unspecified episodic mood disorder Primary hypertension ([facility]) Unspecified essential hypertension Left hip pain Pain in joint, pelvic region and thigh Open wound of anterior abdominal wall, initial encounter Primary hypertension ([facility])- Primary Unspecified essential hypertension Yeast infection of the skin Candidiasis of skin and nails Morbid obesity ([facility]) Morbid obesity Primary hypertension ([facility])- Primary Unspecified essential hypertension Encounter for screening mammogram for malignant neoplasm of breast Gastroesophageal reflux disease, unspecified whether esophagitis present Acute gout of right foot, unspecified cause Osteoporosis, unspecified osteoporosis type, unspecified pathological fracture presence ([facility]) Morbid obesity ([facility]) Morbid obesity Pre-diabetes Other abnormal glucose Anemia, unspecified type Vitamin deficiency Unspecified vitamin deficiency Post-viral cough syndrome Primary hypertension ([facility])- Primary Unspecified essential hypertension Allergic rhinitis, unspecified Acute cough Morbid obesity ([facility]) Morbid obesity Former cigarette smoker Personal history of tobacco use, presenting hazards to health Toxic metabolic encephalopathy- Primary Hemiparesis, right ([facility]) Unspecified hemiplegia affecting unspecified side Acute respiratory failure with hypoxia ([facility]) Heart murmur Undiagnosed cardiac murmurs Primary hypertension ([facility]) Unspecified essential hypertension Morbid obesity ([facility]) Morbid obesity Bipolar disorder with severe depression ([facility]) Slurred speech Other speech disturbance Bilateral lower extremity edema- Primary Primary hypertension ([facility]) Unspecified essential hypertension Lower extremity edema Edema Essential (primary) hypertension ([facility]) Unspecified essential hypertension Gastro-esophageal reflux disease without esophagitis Allergic rhinitis, unspecified Bilateral lower extremity edema- Primary Morbid (severe) obesity due to excess calories ([facility]) Body mass index (BMI) 45.0-49.9, adult ([facility]/HCC) Pre-diabetes Other abnormal glucose Bilateral lower extremity edema- Primary Essential (primary) hypertension ([facility]) Unspecified essential hypertension Allergic rhinitis, unspecified OSMANY (obstructive sleep apnea) Obstructive sleep apnea (adult) (pediatric) Primary hypertension ([facility]) Unspecified essential hypertension Morbid obesity ([facility]) Morbid obesity Acute cystitis without hematuria- Primary Tobacco dependence Tobacco use disorder Needs flu shot Need for prophylactic vaccination and inoculation against influenza Morbid obesity ([facility]/HCC) Morbid obesity Well woman exam with routine gynecological exam- Primary Routine gynecological examination Morbid obesity ([facility]/HCC) Morbid obesity Allergic rhinitis, unspecified documented in this encounter [facility] HealthcareEvaluation note* Diagnosis Left foot pain- Primary Pain in soft tissues of limb Primary hypertension ([facility]) Unspecified essential hypertension Class 3 severe obesity due to excess calories without serious comorbidity with body mass index (BMI) of 45.0 to 49.9 in adult ([facility]) Encounter for annual wellness visit (AWV) in Medicare patient- Primary OSMANY (obstructive sleep apnea) Obstructive sleep apnea (adult) (pediatric) Chronic pain disorder Chronic pain syndrome Gastroesophageal reflux disease, unspecified whether esophagitis present Overactive bladder Hypertonicity of bladder Lower extremity edema Edema Pre-diabetes Other abnormal glucose Morbid obesity ([facility]) Morbid obesity Yeast infection of the skin Candidiasis of skin and nails Tobacco dependence Tobacco use disorder Mood disorder ([facility]) Unspecified episodic mood disorder Primary hypertension ([facility]) Unspecified essential hypertension Left hip pain Pain in joint, pelvic region and thigh Open wound of anterior abdominal wall, initial encounter Primary hypertension ([facility])- Primary Unspecified essential hypertension Yeast infection of the skin Candidiasis of skin and nails Morbid obesity ([facility] Morbid obesity Primary hypertension ([facility])- Primary Unspecified essential hypertension Encounter for screening mammogram for malignant neoplasm of breast Gastroesophageal reflux disease, unspecified whether esophagitis present Acute gout of right foot, unspecified cause Osteoporosis, unspecified osteoporosis type, unspecified pathological fracture presence ([facility]) Morbid obesity ([facility]) Morbid obesity Pre-diabetes Other abnormal glucose Anemia, unspecified type Vitamin deficiency Unspecified vitamin deficiency Post-viral cough syndrome Primary hypertension ([facility])- Primary Unspecified essential hypertension Allergic rhinitis, unspecified Acute cough Morbid obesity ([facility]) Morbid obesity Former cigarette smoker Personal history of tobacco use, presenting hazards to health Toxic metabolic encephalopathy- Primary Hemiparesis, right ([facility]) Unspecified hemiplegia affecting unspecified side Acute respiratory failure with hypoxia ([facility]) Heart murmur Undiagnosed cardiac murmurs Primary hypertension ([facility]) Unspecified essential hypertension Morbid obesity ([facility]) Morbid obesity Bipolar disorder with severe depression ([facility]) Slurred speech Other speech disturbance Bilateral lower extremity edema- Primary Primary hypertension ([facility]) Unspecified essential hypertension Lower extremity edema Edema Essential (primary) hypertension ([facility]) Unspecified essential hypertension Gastro-esophageal reflux disease without esophagitis Allergic rhinitis, unspecified Bilateral lower extremity edema- Primary Morbid (severe) obesity due to excess calories ([facility]) Body mass index (BMI) 45.0-49.9, adult ([facility]) Pre-diabetes Other abnormal glucose Bilateral lower extremity edema- Primary Essential (primary) hypertension ([facility]) Unspecified essential hypertension Allergic rhinitis, unspecified OSMANY (obstructive sleep apnea) Obstructive sleep apnea (adult) (pediatric) Primary hypertension ([facility]) Unspecified essential hypertension Morbid obesity ([facility]) Morbid obesity Acute cystitis without hematuria- Primary Tobacco dependence Tobacco use disorder Needs flu shot Need for prophylactic vaccination and inoculation against influenza Morbid obesity ([facility]) Morbid obesity Well woman exam with routine gynecological exam- Primary Routine gynecological examination Morbid obesity ([facility]) Morbid obesity Yeast infection of the skin Candidiasis of skin and nails documented in this encounter [facility]* Diagnosis Left foot pain- Primary Pain in soft tissues of limb Primary hypertension ([facility]) Unspecified essential hypertension Class 3 severe obesity due to excess calories without serious comorbidity with body mass index (BMI) of 45.0 to 49.9 in adult ([facility]) Encounter for annual wellness visit (AWV) in Medicare patient- Primary OSMANY (obstructive sleep apnea) Obstructive sleep apnea (adult) (pediatric) Chronic pain disorder Chronic pain syndrome Gastroesophageal reflux disease, unspecified whether esophagitis present Overactive bladder Hypertonicity of bladder Lower extremity edema Edema Pre-diabetes Other abnormal glucose Morbid obesity ([facility]) Morbid obesity Yeast infection of the skin Candidiasis of skin and nails Tobacco dependence Tobacco use disorder Mood disorder ([facility]) Unspecified episodic mood disorder Primary hypertension ([facility]) Unspecified essential hypertension Left hip pain Pain in joint, pelvic region and thigh Open wound of anterior abdominal wall, initial encounter Primary hypertension ([facility])- Primary Unspecified essential hypertension Yeast infection of the skin Candidiasis of skin and nails Morbid obesity (CMS/HCC) Morbid obesity Primary hypertension ([facility]/HCC)- Primary Unspecified essential hypertension Encounter for screening mammogram for malignant neoplasm of breast Gastroesophageal reflux disease, unspecified whether esophagitis present Acute gout of right foot, unspecified cause Osteoporosis, unspecified osteoporosis type, unspecified pathological fracture presence ([facility]) Morbid obesity ([facility]) Morbid obesity Pre-diabetes Other abnormal glucose Anemia, unspecified type Vitamin deficiency Unspecified vitamin deficiency Post-viral cough syndrome Primary hypertension ([facility]/HCC)- Primary Unspecified essential hypertension Allergic rhinitis, unspecified Acute cough Morbid obesity ([facility]) Morbid obesity Former cigarette smoker Personal history of tobacco use, presenting hazards to health Toxic metabolic encephalopathy- Primary Hemiparesis, right ([facility]) Unspecified hemiplegia affecting unspecified side Acute respiratory failure with hypoxia ([facility]) Heart murmur Undiagnosed cardiac murmurs Primary hypertension ([facility]) Unspecified essential hypertension Morbid obesity ([facility]) Morbid obesity Bipolar disorder with severe depression ([facility]) Slurred speech Other speech disturbance Bilateral lower extremity edema- Primary Primary hypertension ([facility]) Unspecified essential hypertension Lower extremity edema Edema Essential (primary) hypertension ([facility]) Unspecified essential hypertension Gastro-esophageal reflux disease without esophagitis Allergic rhinitis, unspecified Bilateral lower extremity edema- Primary Morbid (severe) obesity due to excess calories ([facility]) Body mass index (BMI) 45.0-49.9, adult ([facility]) Pre-diabetes Other abnormal glucose Bilateral lower extremity edema- Primary Essential (primary) hypertension ([facility]) Unspecified essential hypertension Allergic rhinitis, unspecified OSMANY (obstructive sleep apnea) Obstructive sleep apnea (adult) (pediatric) Primary hypertension ([facility]) Unspecified essential hypertension Morbid obesity ([facility] Morbid obesity Acute cystitis without [...] to thrombosis of left middle cerebral artery ([facility]) Degeneration of intervertebral disc of lumbar region with discogenic back pain and lower extremity pain Memory change Memory loss documented in this encounter [facility] Healthcare[facility]* Diagnosis Left foot pain- Primary Pain in soft tissues of limb Primary hypertension ([facility]) Unspecified essential hypertension Class 3 severe obesity due to excess calories without serious comorbidity with body mass index (BMI) of 45.0 to 49.9 in adult ([facility]) Encounter for annual wellness visit (AWV) in Medicare patient- Primary OSMANY (obstructive sleep apnea) Obstructive sleep apnea (adult) (pediatric) Chronic pain disorder Chronic pain syndrome Gastroesophageal reflux disease, unspecified whether esophagitis present Overactive bladder Hypertonicity of bladder Lower extremity edema Edema Pre-diabetes Other abnormal glucose Morbid obesity ([facility]) Morbid obesity Yeast infection of the skin Candidiasis of skin and nails Tobacco dependence Tobacco use disorder Mood disorder ([facility]) Unspecified episodic mood disorder Primary hypertension ([facility]) Unspecified essential hypertension Left hip pain Pain in joint, pelvic region and thigh Open wound of anterior abdominal wall, initial encounter Primary hypertension ([facility])- Primary Unspecified essential hypertension Yeast infection of the skin Candidiasis of skin and nails Morbid obesity ([facility]) Morbid obesity Primary hypertension ([facility])- Primary Unspecified essential hypertension Encounter for screening mammogram for malignant neoplasm of breast Gastroesophageal reflux disease, unspecified whether esophagitis present Acute gout of right foot, unspecified cause Osteoporosis, unspecified osteoporosis type, unspecified pathological fracture presence ([facility]) Morbid obesity ([facility]) Morbid obesity Pre-diabetes Other abnormal glucose Anemia, unspecified type Vitamin deficiency Unspecified vitamin deficiency Post-viral cough syndrome Primary hypertension ([facility])- Primary Unspecified essential hypertension Allergic rhinitis, unspecified Acute cough Morbid obesity ([facility]) Morbid obesity Former cigarette smoker Personal history of tobacco use, presenting hazards to health Toxic metabolic encephalopathy- Primary Hemiparesis, right ([facility]) Unspecified hemiplegia affecting unspecified side Acute respiratory failure with hypoxia ([facility]) Heart murmur Undiagnosed cardiac murmurs Primary hypertension ([facility]) Unspecified essential hypertension Morbid obesity ([facility]) Morbid obesity Bipolar disorder with severe depression ([facility]) Slurred speech Other speech disturbance Bilateral lower extremity edema- Primary Primary hypertension ([facility]) Unspecified essential hypertension Lower extremity edema Edema Essential (primary) hypertension ([facility]) Unspecified essential hypertension Gastro-esophageal reflux disease without esophagitis Allergic rhinitis, unspecified Bilateral lower extremity edema- Primary Morbid (severe) obesity due to excess calories ([facility]) Body mass index (BMI) 45.0-49.9, adult ([facility]) Pre-diabetes Other abnormal glucose Bilateral lower extremity edema- Primary Essential (primary) hypertension ([facility]) Unspecified essential hypertension Allergic rhinitis, unspecified OSMANY (obstructive sleep apnea) Obstructive sleep apnea (adult) (pediatric) Primary hypertension ([facility]) Unspecified essential hypertension Morbid obesity ([facility]) Morbid obesity Acute cystitis without hematuria- Primary Tobacco dependence Tobacco use disorder Needs flu shot Need for prophylactic vaccination and inoculation against influenza Morbid obesity ([facility]) Morbid obesity Well woman exam with routine gynecological exam- Primary Routine gynecological examination Morbid obesity ([facility]) Morbid obesity Altered mental status, unspecified altered mental status type- Primary Restless leg Restless legs syndrome (RLS) 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[facility]) OSMANY (obstructive sleep apnea) Obstructive sleep apnea (adult) (pediatric) documented in this encounter [facility] HealthcareEvaluation note* Diagnosis Left foot pain- Primary Pain in soft tissues of limb Primary hypertension ([facility]) Unspecified essential hypertension Class 3 severe obesity due to excess calories without serious comorbidity with body mass index (BMI) of 45.0 to 49.9 in adult ([facility]) Encounter for annual wellness visit (AWV) in Medicare patient- Primary OSMANY (obstructive sleep apnea) Obstructive sleep apnea (adult) (pediatric) Chronic pain disorder Chronic pain syndrome Gastroesophageal reflux disease, unspecified whether esophagitis present Overactive bladder Hypertonicity of bladder Lower extremity edema Edema Pre-diabetes Other abnormal glucose Morbid obesity ([facility]) Morbid obesity Yeast infection of the skin Candidiasis of skin and nails Tobacco dependence Tobacco use disorder Mood disorder ([facility]) Unspecified episodic mood disorder Primary hypertension ([facility]) Unspecified essential hypertension Left hip pain Pain in joint, pelvic region and thigh Open wound of anterior abdominal wall, initial encounter Primary hypertension ([facility])- Primary Unspecified essential hypertension Yeast infection of the skin Candidiasis of skin and nails Morbid obesity ([facility]) Morbid obesity Primary hypertension ([facility])- Primary Unspecified essential hypertension Encounter for screening mammogram for malignant neoplasm of breast Gastroesophageal reflux disease, unspecified whether esophagitis present Acute gout of right foot, unspecified cause Osteoporosis, unspecified osteoporosis type, unspecified pathological fracture presence ([facility]) Morbid obesity ([facility]) Morbid obesity Pre-diabetes Other abnormal glucose Anemia, unspecified type Vitamin deficiency Unspecified vitamin deficiency Post-viral cough syndrome Primary hypertension ([facility])- Primary Unspecified essential hypertension Allergic rhinitis, unspecified Acute cough Morbid obesity ([facility]) Morbid obesity Former cigarette smoker Personal history of tobacco use, presenting hazards to health Toxic metabolic encephalopathy- Primary Hemiparesis, right ([facility]) Unspecified hemiplegia affecting unspecified side Acute respiratory failure with hypoxia ([facility]) Heart murmur Undiagnosed cardiac murmurs Primary hypertension ([facility]) Unspecified essential hypertension Morbid obesity ([facility]) Morbid obesity Bipolar disorder with severe depression ([facility]) Slurred speech Other speech disturbance Bilateral lower extremity edema- Primary Primary hypertension ([facility]) Unspecified essential hypertension Lower extremity edema Edema Essential (primary) hypertension ([facility]) Unspecified essential hypertension Gastro-esophageal reflux disease without esophagitis Allergic rhinitis, unspecified Bilateral lower extremity edema- Primary Morbid (severe) obesity due to excess calories ([facility]) Body mass index (BMI) 45.0-49.9, adult ([facility]) Pre-diabetes Other abnormal glucose Bilateral lower extremity edema- Primary Essential (primary) hypertension ([facility]) Unspecified essential hypertension Allergic rhinitis, unspecified OSMANY (obstructive sleep apnea) Obstructive sleep apnea (adult) (pediatric) Primary hypertension ([facility]) Unspecified essential hypertension Morbid obesity ([facility]) Morbid obesity Acute cystitis without hematuria- Primary Tobacco dependence Tobacco use disorder Needs flu shot Need for prophylactic vaccination and inoculation against influenza Morbid obesity ([facility]) Morbid obesity Well woman exam with routine gynecological exam- Primary Routine gynecological examination Morbid obesity ([facility]) Morbid obesity Altered mental status, unspecified altered mental status type- Primary Memory change Memory loss Concentration deficit 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 ([facility]) PTSD (post-traumatic stress disorder) ([facility]) Posttraumatic stress disorder Bipolar affective disorder, remission status unspecified ([facility]) Family history of dementia Family [...] Other abnormal glucose Morbid obesity ([facility]) Morbid obesity Yeast infection of [...] unspecified side Acute respiratory failure with hypoxia ([facility]) Heart murmur Undiagnosed cardiac murmurs Primary hypertension ([facility]/HCC) Unspecified essential hypertension Morbid obesity ([facility]/HCC) Morbid obesity Bipolar disorder with severe depression ([facility]) Slurred speech Other speech disturbance Bilateral lower extremity edema- Primary Primary hypertension ([facility]/HCC) Unspecified essential hypertension Lower extremity edema Edema Essential (primary) hypertension ([facility]) Unspecified essential hypertension Gastro-esophageal reflux disease without esophagitis Allergic rhinitis, unspecified Bilateral lower extremity edema- Primary Morbid (severe) obesity due to excess calories ([facility]) Body mass index (BMI) 45.0-49.9, adult ([facility]) Pre-diabetes Other abnormal glucose Bilateral lower extremity edema- Primary Essential (primary) hypertension ([facility]/HCC) Unspecified essential hypertension Allergic rhinitis, unspecified OSMANY (obstructive sleep apnea) Obstructive sleep apnea (adult) (pediatric) Primary hypertension ([facility]/HCC) Unspecified essential hypertension Morbid obesity ([facility]) Morbid obesity Acute cystitis without [...] use disorder Bipolar disorder with severe depression ([facility]/HCC) At risk for polypharmacy Anxiety Anxiety [...] Other abnormal glucose Morbid obesity ([facility]/HCC) Morbid obesity Yeast infection of the skin Candidiasis of skin and nails Tobacco dependence Tobacco use disorder Mood disorder ([facility]/HCC) Unspecified episodic mood disorder Primary hypertension ([facility]) Unspecified essential hypertension Left hip pain Pain in joint, pelvic region and thigh Open wound of anterior abdominal wall, initial encounter Primary hypertension ([facility]/HCC)- Primary Unspecified essential hypertension Yeast infection of the skin Candidiasis of skin and nails Morbid obesity ([facility]/HCC) Morbid obesity Primary hypertension ([facility])- Primary Unspecified essential hypertension Allergic rhinitis, unspecified Acute cough Morbid obesity ([facility]) Morbid obesity Former cigarette smoker Personal history of tobacco use, presenting hazards to health Toxic metabolic encephalopathy- Primary Hemiparesis, right ([facility]) Unspecified hemiplegia affecting unspecified side Acute respiratory failure with hypoxia ([facility]) Heart murmur Undiagnosed cardiac murmurs Primary hypertension ([facility] Unspecified essential hypertension Morbid obesity ([facility]) Morbid obesity Bipolar disorder with severe depression ([facility]) Slurred speech Other speech disturbance Bilateral lower extremity edema- Primary Primary hypertension ([facility]) Unspecified essential hypertension Lower extremity edema Edema Essential (primary) hypertension ([facility]) Unspecified essential hypertension Gastro-esophageal reflux disease without esophagitis Allergic rhinitis, unspecified Bilateral lower extremity edema- Primary Morbid (severe) obesity due to excess calories ([facility]) Body mass index (BMI) 45.0-49.9, adult ([facility]) Pre-diabetes Other abnormal glucose Bilateral lower extremity edema- Primary Essential (primary) hypertension ([facility]) Unspecified essential hypertension Allergic rhinitis, unspecified OSMANY (obstructive sleep apnea) Obstructive sleep apnea (adult) (pediatric) Primary hypertension ([facility]/HCC) Unspecified essential hypertension Morbid obesity ([facility]) Morbid obesity Acute cystitis without hematuria- Primary Tobacco dependence Tobacco use disorder Needs flu shot Need for prophylactic vaccination and inoculation against influenza Morbid obesity (CMS/HCC) Morbid obesity Well woman exam with routine gynecological exam- Primary Routine gynecological examination Morbid obesity (CMS/HCC) Morbid obesity Metabolic encephalopathy- Primary OSMANY (obstructive sleep apnea) Obstructive sleep apnea (adult) (pediatric) Morbid obesity ([facility]/HCC) Morbid obesity Bilateral lower extremity edema Tobacco dependence Tobacco use disorder Bipolar disorder with severe depression ([facility]) At risk for polypharmacy Anxiety Anxiety state, unspecified Primary hypertension ([facility]/HCC) Unspecified essential hypertension Right bundle branch block (RBBB) determined by electrocardiography documented in this encounter [facility]* Diagnosis Yeast infection of the skin- Primary Candidiasis of skin and nails documented in this encounter [facility]* Diagnosis 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[facility])- Primary Restless leg Restless legs syndrome (RLS) Metabolic encephalopathy documented in this encounter [facility]* Diagnosis OSMANY (obstructive sleep apnea)- Primary Obstructive sleep apnea (adult) (pediatric) Restless leg Restless legs syndrome (RLS) documented in this encounter [facility]* Diagnosis Bilateral lower extremity edema- Primary Essential (primary) hypertension ([facility]) Unspecified essential hypertension Allergic rhinitis, unspecified OSMANY (obstructive sleep apnea) Obstructive sleep apnea (adult) (pediatric) Primary hypertension ([facility]) Unspecified essential hypertension Morbid obesity ([facility]) Morbid obesity documented in this [...] Other abnormal glucose Morbid obesity ([facility]/HCC) Morbid obesity Yeast infection of the skin Candidiasis of skin and nails Tobacco dependence Tobacco use disorder Mood disorder ([facility]/HCC) Unspecified episodic mood disorder Primary hypertension ([facility]) Unspecified essential hypertension Left hip pain Pain in joint, pelvic region and thigh Open wound of anterior abdominal wall, initial encounter Primary hypertension ([facility])- Primary Unspecified essential hypertension Yeast infection of the skin Candidiasis of skin and nails Morbid obesity ([facility]/HCC) Morbid obesity Primary hypertension ([facility])- Primary Unspecified essential hypertension Allergic rhinitis, unspecified Acute cough Morbid obesity ([facility]) Morbid obesity Former cigarette smoker Personal history of tobacco use, presenting hazards to health Toxic metabolic encephalopathy- Primary Hemiparesis, right ([facility]) Unspecified hemiplegia affecting unspecified side Acute respiratory failure with hypoxia ([facility]) Heart murmur Undiagnosed cardiac murmurs Primary hypertension ([facility] Unspecified essential hypertension Morbid obesity ([facility]) Morbid obesity Bipolar disorder with severe depression ([facility]) Slurred speech Other speech disturbance Bilateral lower extremity edema- Primary Primary hypertension ([facility]) Unspecified essential hypertension Lower extremity edema Edema Essential (primary) hypertension ([facility]) Unspecified essential hypertension Gastro-esophageal reflux disease without esophagitis Allergic rhinitis, unspecified Bilateral lower extremity edema- Primary Morbid (severe) obesity due to excess calories ([facility]) Body mass index (BMI) 45.0-49.9, adult ([facility]) Pre-diabetes Other abnormal glucose Bilateral lower extremity edema- Primary Essential (primary) hypertension ([facility]) Unspecified essential hypertension Allergic rhinitis, unspecified OSMANY (obstructive sleep apnea) Obstructive sleep apnea (adult) (pediatric) Primary hypertension ([facility]) Unspecified essential hypertension Morbid obesity ([facility]) Morbid obesity Acute cystitis without hematuria- Primary Tobacco dependence Tobacco use disorder Needs flu shot Need for prophylactic vaccination and inoculation against influenza Morbid obesity ([facility]) Morbid obesity Well woman exam with routine gynecological exam- Primary Routine gynecological examination Morbid obesity ([facility]) Morbid obesity Metabolic encephalopathy- Primary OSMANY (obstructive sleep apnea) Obstructive sleep apnea (adult) (pediatric) Morbid obesity ([facility]) Morbid obesity Bilateral lower extremity edema Tobacco dependence Tobacco use disorder Bipolar disorder with severe depression ([facility]) At risk for polypharmacy Anxiety Anxiety state, unspecified Primary hypertension ([facility]) Unspecified essential hypertension Right bundle branch block (RBBB) determined by electrocardiography Metabolic encephalopathy- Primary Memory change Memory loss Altered mental status, unspecified altered mental status type Concentration deficit PTSD (post-traumatic stress disorder) ([facility] [facility]) Posttraumatic stress disorder Bipolar affective disorder, remission status unspecified ([facility]) Family history of dementia Family history of other neurological diseases 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[facility]) OSMANY (obstructive sleep apnea) Obstructive [...] Other abnormal glucose Morbid obesity ([facility]/HCC) Morbid obesity Yeast infection of the skin Candidiasis of skin and nails Tobacco dependence Tobacco use disorder Mood disorder ([facility]/HCC) Unspecified episodic mood disorder Primary hypertension ([facility]) Unspecified essential hypertension Left hip pain Pain in joint, pelvic region and thigh Open wound of anterior abdominal wall, initial encounter Primary hypertension (CMS/HCC)- Primary Unspecified essential hypertension Yeast infection of the skin Candidiasis of skin and nails Morbid obesity ([facility]/HCC) Morbid obesity Primary hypertension ([facility]/HCC)- Primary Unspecified essential hypertension Allergic rhinitis, unspecified Acute cough Morbid obesity ([facility]) Morbid obesity Former cigarette smoker Personal history of tobacco use, presenting hazards to health Toxic metabolic encephalopathy- Primary Hemiparesis, right ([facility]) Unspecified hemiplegia affecting unspecified side Acute respiratory failure with hypoxia ([facility]) Heart murmur Undiagnosed cardiac murmurs Primary hypertension ([facility]) Unspecified essential hypertension Morbid obesity ([facility]) Morbid obesity Bipolar disorder with severe depression ([facility]) Slurred speech Other speech disturbance Bilateral lower extremity edema- Primary Primary hypertension ([facility]/HCC) Unspecified essential hypertension Lower extremity edema Edema Essential (primary) hypertension ([facility]) Unspecified essential hypertension Gastro-esophageal reflux disease without esophagitis Allergic rhinitis, unspecified Bilateral lower extremity edema- Primary Morbid (severe) obesity due to excess calories ([facility]) Body mass index (BMI) 45.0-49.9, adult ([facility]) Pre-diabetes Other abnormal glucose Bilateral lower extremity edema- Primary Essential (primary) hypertension ([facility]) Unspecified essential hypertension Allergic rhinitis, unspecified OMSANY (obstructive sleep apnea) Obstructive sleep apnea (adult) (pediatric) Primary hypertension ([facility]) Unspecified essential hypertension Morbid obesity ([facility]) Morbid obesity Acute cystitis without hematuria- Primary Tobacco dependence Tobacco use disorder Needs flu shot Need for prophylactic vaccination and inoculation against influenza Morbid obesity (CMS/HCC) Morbid obesity Well woman exam with routine gynecological exam- Primary Routine gynecological examination Morbid obesity ([facility]/HCC) Morbid obesity Metabolic encephalopathy- Primary OSMANY (obstructive sleep apnea) Obstructive sleep apnea (adult) (pediatric) Morbid obesity ([facility]/HCC) Morbid obesity Bilateral lower extremity edema Tobacco dependence Tobacco use disorder Bipolar disorder with severe depression ([facility]) At risk for polypharmacy Anxiety Anxiety state, unspecified Primary hypertension ([facility]/HCC) Unspecified essential hypertension Right bundle branch block (RBBB) determined by electrocardiography Transient alteration of awareness- Primary Restless leg Restless legs syndrome (RLS) documented in this encounter [facility] HealthcareEvaluation note* Diagnosis Encounter for annual [...] (CMS/HCC) Unspecified episodic mood disorder Primary hypertension ([facility]/HCC) Unspecified essential hypertension Left hip pain Pain in joint, pelvic region and thigh Open wound of anterior abdominal wall, initial encounter Primary hypertension ([facility]/HCC)- Primary Unspecified essential hypertension Yeast infection of the skin Candidiasis of skin and nails Morbid obesity ([facility]) Morbid obesity Primary hypertension ([facility])- Primary Unspecified essential hypertension Allergic rhinitis, unspecified Acute cough Morbid obesity ([facility]) Morbid obesity Former cigarette smoker Personal history of tobacco use, presenting hazards to health Toxic metabolic encephalopathy- Primary Hemiparesis, right ([facility]) Unspecified hemiplegia affecting unspecified side Acute respiratory failure with hypoxia ([facility]) Heart murmur Undiagnosed cardiac murmurs Primary hypertension ([facility]) Unspecified essential hypertension Morbid obesity ([facility]) Morbid obesity Bipolar disorder with severe depression ([facility]) Slurred speech Other speech disturbance Bilateral lower extremity edema- Primary Primary hypertension ([facility]) Unspecified essential hypertension Lower extremity edema Edema Essential (primary) hypertension ([facility]) Unspecified essential hypertension Gastro-esophageal reflux disease without esophagitis Allergic rhinitis, unspecified Bilateral lower extremity edema- Primary Morbid (severe) obesity due to excess calories ([facility]) Body mass index (BMI) 45.0-49.9, adult ([facility]) Pre-diabetes Other abnormal glucose Bilateral lower extremity edema- Primary Essential (primary) hypertension ([facility]/HCC) Unspecified essential hypertension Allergic rhinitis, unspecified OSMANY (obstructive sleep apnea) Obstructive sleep apnea (adult) (pediatric) Primary hypertension (CMS/HCC) Unspecified essential hypertension Morbid obesity ([facility]/HCC) Morbid obesity Acute cystitis without hematuria- Primary Tobacco dependence Tobacco use disorder Needs flu shot Need for prophylactic vaccination and inoculation against influenza Morbid obesity (CMS/HCC) Morbid obesity Well woman exam with routine gynecological exam- Primary Routine gynecological examination Morbid obesity ([facility]/HCC) Morbid obesity Metabolic encephalopathy- Primary OSMANY (obstructive sleep apnea) Obstructive sleep apnea (adult) (pediatric) Morbid obesity ([facility]/HCC) Morbid obesity Bilateral lower extremity edema Tobacco dependence Tobacco use disorder Bipolar disorder with severe depression ([facility]) At risk for polypharmacy Anxiety Anxiety state, unspecified Primary hypertension ([facility]) Unspecified essential hypertension Right bundle branch block (RBBB) determined by electrocardiography Primary hypertension ([facility])- Primary Unspecified essential hypertension Chronic kidney disease, stage 3a (HCC) ([facility]) Morbid (severe) obesity due to excess calories ([facility]) Body mass index (BMI) 45.0-49.9, adult ([facility]) OSMANY (obstructive sleep apnea) Obstructive sleep apnea (adult) (pediatric) Hemiparesis, right ([facility]) Unspecified hemiplegia affecting unspecified side Gastroesophageal reflux disease, unspecified whether esophagitis present Metabolic encephalopathy Essential (primary) hypertension ([facility]) Unspecified essential hypertension Allergic rhinitis, unspecified Gastro-esophageal reflux disease without esophagitis Bilateral lower extremity edema documented in this encounter [facility] HealthcareEvaluation note* Diagnosis Encounter for annual wellness visit (AWV) in Medicare patient- Primary OSMANY (obstructive sleep apnea) Obstructive sleep apnea (adult) (pediatric) Chronic pain disorder Chronic pain syndrome Gastroesophageal reflux disease, unspecified whether esophagitis present Overactive bladder Hypertonicity of bladder Lower extremity edema Edema Pre-diabetes Other abnormal glucose Morbid obesity ([facility]) Morbid obesity Yeast infection of the skin Candidiasis of skin and nails Tobacco dependence Tobacco use disorder Mood disorder ([facility]/HCC) Unspecified episodic mood disorder Primary hypertension ([facility]) Unspecified essential hypertension Left hip pain Pain in joint, pelvic region and thigh Open wound of anterior abdominal wall, initial encounter Primary hypertension ([facility]/HCC)- Primary Unspecified essential hypertension Yeast infection of the skin Candidiasis of skin and nails Morbid obesity ([facility]/HCC) Morbid obesity Primary hypertension ([facility]/HCC)- Primary Unspecified essential hypertension Allergic rhinitis, unspecified Acute cough Morbid obesity ([facility]) Morbid obesity Former cigarette smoker Personal history of tobacco use, presenting hazards to health Toxic metabolic encephalopathy- Primary Hemiparesis, right ([facility]) Unspecified hemiplegia affecting unspecified side Acute respiratory failure with hypoxia ([facility]) Heart murmur Undiagnosed cardiac murmurs Primary hypertension ([facility]) Unspecified essential hypertension Morbid obesity ([facility]) Morbid obesity Bipolar disorder with severe depression ([facility]) Slurred speech Other speech disturbance Bilateral lower extremity edema- Primary Primary hypertension ([facility]) Unspecified essential hypertension Lower extremity edema Edema Essential (primary) hypertension ([facility]) Unspecified essential hypertension Gastro-esophageal reflux disease without esophagitis Allergic rhinitis, unspecified Bilateral lower extremity edema- Primary Morbid (severe) obesity due to excess calories ([facility]) Body mass index (BMI) 45.0-49.9, adult ([facility]) Pre-diabetes Other abnormal glucose Bilateral lower extremity edema- Primary Essential (primary) hypertension ([facility]) Unspecified essential hypertension Allergic rhinitis, unspecified OSMANY (obstructive sleep apnea) Obstructive sleep apnea (adult) (pediatric) Primary hypertension ([facility]) Unspecified essential hypertension Morbid obesity ([facility]) Morbid obesity Acute cystitis without hematuria- Primary Tobacco dependence Tobacco use disorder Needs flu shot Need for prophylactic vaccination and inoculation against influenza Morbid obesity ([facility]) Morbid obesity Well woman exam with routine gynecological exam- Primary Routine gynecological examination Morbid obesity ([facility]) Morbid obesity Metabolic encephalopathy- Primary OSMANY (obstructive sleep apnea) Obstructive sleep apnea (adult) (pediatric) Morbid obesity ([facility]) Morbid obesity Bilateral lower extremity edema Tobacco dependence Tobacco use disorder Bipolar disorder with severe depression ([facility]) At risk for polypharmacy Anxiety Anxiety state, unspecified Primary hypertension ([facility]) Unspecified essential hypertension Right bundle branch block (RBBB) determined by electrocardiography Primary hypertension ([facility])- Primary Unspecified essential hypertension Chronic kidney disease, stage 3a (HCC) ([facility]) Morbid (severe) obesity due to excess calories ([facility]) Body mass index (BMI) 45.0-49.9, adult ([facility]) OSMANY (obstructive sleep apnea) Obstructive sleep apnea (adult) (pediatric) Hemiparesis, right ([facility]) Unspecified hemiplegia affecting unspecified side Gastroesophageal reflux disease, unspecified whether esophagitis present Metabolic encephalopathy Essential (primary) hypertension ([facility]) Unspecified essential hypertension Allergic rhinitis, unspecified Gastro-esophageal reflux disease without esophagitis Bilateral lower extremity edema 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 ([facility])- Primary OSMANY (obstructive sleep apnea) Obstructive sleep apnea (adult) (pediatric) Metabolic encephalopathy Restless leg Restless legs syndrome (RLS) Degeneration of intervertebral disc of lumbar region with discogenic back pain and lower extremity pain documented in this encounter [facility] HealthcareEvaluation note* Diagnosis Encounter for annual [...] Allergic rhinitis, unspecified Acute cough Morbid obesity ([facility]/HCC) Morbid obesity Former cigarette smoker Personal history of tobacco use, presenting hazards to health Toxic metabolic encephalopathy- Primary Hemiparesis, right (CMS/[facility]) Unspecified hemiplegia affecting unspecified side Acute respiratory failure with hypoxia ([facility]) Heart murmur Undiagnosed cardiac murmurs Primary hypertension ([facility]/HCC) Unspecified essential hypertension Morbid obesity ([facility]/HCC) Morbid obesity Bipolar disorder with severe depression ([facility]) Slurred speech Other speech disturbance Bilateral lower extremity edema- Primary Primary hypertension ([facility]/HCC) Unspecified essential hypertension Lower extremity edema Edema Essential (primary) hypertension ([facility]/HCC) Unspecified essential hypertension Gastro-esophageal reflux disease without esophagitis Allergic rhinitis, unspecified Bilateral lower extremity edema- Primary Morbid (severe) obesity due to excess calories ([facility]) Body mass index (BMI) 45.0-49.9, adult ([facility]) Pre-diabetes Other abnormal glucose Bilateral [...] vaccination and inoculation against influenza Morbid obesity ([facility]) Morbid obesity Well woman exam with routine gynecological exam- Primary Routine gynecological examination Morbid obesity ([facility]) Morbid obesity Metabolic encephalopathy- Primary OSMANY (obstructive sleep apnea) Obstructive sleep apnea (adult) (pediatric) Morbid obesity ([facility]) Morbid obesity Bilateral lower extremity edema Tobacco dependence Tobacco use disorder Bipolar disorder with severe depression ([facility]) At risk for polypharmacy Anxiety Anxiety state, unspecified Primary hypertension ([facility]) Unspecified essential hypertension Right bundle branch block (RBBB) determined by electrocardiography Primary hypertension ([facility])- Primary Unspecified essential hypertension Chronic kidney disease, stage 3a ([facility]) ([facility]) Morbid (severe) obesity due to excess calories ([facility]) Body mass index (BMI) 45.0-49.9, adult ([facility]) OSMANY (obstructive sleep apnea) Obstructive sleep apnea (adult) (pediatric) Hemiparesis, right ([facility]) Unspecified hemiplegia affecting unspecified side Gastroesophageal reflux disease, unspecified whether esophagitis present Metabolic encephalopathy Essential (primary) hypertension ([facility]) Unspecified essential hypertension Allergic rhinitis, unspecified Gastro-esophageal reflux disease without esophagitis Bilateral lower extremity edema Restless leg Restless legs syndrome (RLS) documented in this encounter [facility] HealthcareEvaluation note* Diagnosis Encounter for annual wellness visit (AWV) in Medicare patient- Primary OSMANY (obstructive sleep apnea) Obstructive sleep apnea (adult) (pediatric) Chronic pain disorder Chronic pain syndrome Gastroesophageal reflux disease, unspecified whether esophagitis present Overactive bladder Hypertonicity of bladder Lower extremity edema Edema Pre-diabetes Other abnormal glucose Morbid obesity ([facility]) Morbid obesity Yeast infection of the skin Candidiasis of skin and nails Tobacco dependence Tobacco use disorder Mood disorder ([facility]) Unspecified episodic mood disorder Primary hypertension ([facility]) Unspecified essential hypertension Left hip pain Pain in joint, pelvic region and thigh Open wound of anterior abdominal wall, initial encounter Primary hypertension ([facility])- Primary Unspecified essential hypertension Yeast infection of the skin Candidiasis of skin and nails Morbid obesity ([facility]) Morbid obesity Primary hypertension ([facility])- Primary Unspecified essential hypertension Allergic rhinitis, unspecified Acute cough Morbid obesity ([facility]) Morbid obesity Former cigarette smoker Personal history of tobacco use, presenting hazards to health Toxic metabolic encephalopathy- Primary Hemiparesis, right ([facility]) Unspecified hemiplegia affecting unspecified side Acute respiratory failure with hypoxia ([facility]) Heart murmur Undiagnosed cardiac murmurs Primary hypertension ([facility] Unspecified essential hypertension Morbid obesity ([facility]) Morbid obesity Bipolar disorder with severe depression ([facility]) Slurred speech Other speech disturbance Bilateral lower extremity edema- Primary Primary hypertension ([facility]) Unspecified essential hypertension Lower extremity edema Edema Essential (primary) hypertension ([facility]) Unspecified essential hypertension Gastro-esophageal reflux disease without esophagitis Allergic rhinitis, unspecified Bilateral lower extremity edema- Primary Morbid (severe) obesity due to excess calories ([facility]) Body mass index (BMI) 45.0-49.9, adult ([facility]) Pre-diabetes Other abnormal glucose Bilateral lower extremity edema- Primary Essential (primary) hypertension ([facility]) Unspecified essential hypertension Allergic rhinitis, unspecified OSMANY (obstructive sleep apnea) Obstructive sleep apnea (adult) (pediatric) Primary hypertension ([facility]) Unspecified essential hypertension Morbid obesity ([facility]) Morbid obesity Acute cystitis without hematuria- Primary Tobacco dependence Tobacco use disorder Needs flu shot Need for prophylactic vaccination and inoculation against influenza Morbid obesity ([facility]) Morbid obesity Well woman exam with routine gynecological exam- Primary Routine gynecological examination Morbid obesity ([facility]) Morbid obesity Metabolic encephalopathy- Primary OSMANY (obstructive sleep apnea) Obstructive sleep apnea (adult) (pediatric) Morbid obesity ([facility]) Morbid obesity Bilateral lower extremity edema Tobacco dependence Tobacco use disorder Bipolar disorder with severe depression ([facility]) At risk for polypharmacy Anxiety Anxiety state, unspecified Primary hypertension ([facility]) Unspecified essential hypertension Right bundle branch block (RBBB) determined by electrocardiography Primary hypertension ([facility])- Primary Unspecified essential hypertension Chronic kidney disease, stage 3a (HCC) ([facility] [facility]) Morbid (severe) obesity due to excess calories ([facility]) Body mass index (BMI) 45.0-49.9, adult ([facility]) OSMANY (obstructive sleep apnea) Obstructive sleep apnea (adult) (pediatric) Hemiparesis, right ([facility]) Unspecified hemiplegia affecting unspecified side Gastroesophageal reflux disease, unspecified whether esophagitis present Metabolic encephalopathy Essential (primary) hypertension ([facility]) Unspecified essential hypertension Allergic rhinitis, unspecified Gastro-esophageal reflux disease without esophagitis Bilateral lower extremity edema URI, acute- Primary Acute upper respiratory infections of unspecified site documented in this encounter [facility] HealthcareEvaluation note* Diagnosis Encounter for annual [...] Morbid obesity (CMS/HCC) Morbid obesity Primary hypertension ([facility]/HCC)- Primary Unspecified essential hypertension Allergic rhinitis, unspecified Acute cough Morbid obesity ([facility]) Morbid obesity Former cigarette smoker Personal history of tobacco use, presenting hazards to health Toxic metabolic encephalopathy- Primary Hemiparesis, right ([facility]) Unspecified hemiplegia affecting unspecified side Acute respiratory failure with hypoxia ([facility]) Heart murmur Undiagnosed cardiac murmurs Primary hypertension ([facility]) Unspecified essential hypertension Morbid obesity ([facility]) Morbid obesity Bipolar disorder with severe depression ([facility]) Slurred speech Other speech disturbance Bilateral lower extremity edema- Primary Primary hypertension ([facility]/HCC) Unspecified essential hypertension Lower extremity edema Edema Essential (primary) hypertension ([facility]) Unspecified essential hypertension Gastro-esophageal reflux disease without esophagitis Allergic rhinitis, unspecified Bilateral lower extremity edema- Primary Morbid (severe) obesity due to excess calories ([facility]) Body mass index (BMI) 45.0-49.9, adult ([facility]) Pre-diabetes Other abnormal glucose Bilateral lower extremity edema- Primary Essential (primary) hypertension ([facility]/HCC) Unspecified essential hypertension Allergic rhinitis, unspecified OSMANY (obstructive sleep apnea) Obstructive sleep apnea (adult) (pediatric) Primary hypertension (CMS/HCC) Unspecified essential hypertension Morbid obesity ([facility]) Morbid obesity Acute cystitis without hematuria- Primary Tobacco dependence Tobacco use disorder Needs flu shot Need for prophylactic vaccination and inoculation against influenza Morbid obesity (CMS/HCC) Morbid obesity Well woman exam with routine gynecological exam- Primary Routine gynecological examination Morbid obesity (CMS/HCC) Morbid obesity Metabolic encephalopathy- Primary OSMANY (obstructive sleep apnea) Obstructive sleep apnea (adult) (pediatric) Morbid obesity ([facility]/HCC) Morbid obesity Bilateral lower extremity edema Tobacco dependence Tobacco use disorder Bipolar disorder with severe depression ([facility]) At risk for polypharmacy Anxiety Anxiety state, unspecified Primary hypertension ([facility] Unspecified essential hypertension Right bundle branch block (RBBB) determined by electrocardiography Primary hypertension ([facility])- Primary Unspecified essential hypertension Chronic kidney disease, stage 3a (HCC) ([facility]) Morbid (severe) obesity due to excess calories ([facility]) Body mass index (BMI) 45.0-49.9, adult ([facility]) OSMANY (obstructive sleep apnea) Obstructive sleep apnea (adult) (pediatric) Hemiparesis, right ([facility]) Unspecified hemiplegia affecting unspecified side Gastroesophageal reflux disease, unspecified whether esophagitis present Metabolic encephalopathy Essential (primary) hypertension ([facility]) Unspecified essential hypertension Allergic rhinitis, unspecified Gastro-esophageal reflux disease without esophagitis Bilateral lower extremity edema OSMANY (obstructive sleep apnea)- Primary Obstructive sleep apnea (adult) (pediatric) Restless leg Restless legs syndrome (RLS) 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[facility]) Concentration deficit documented in this encounter [facility] HealthcareEvaluation note* Diagnosis Encounter for annual wellness visit (AWV) in Medicare patient- Primary OSMANY (obstructive sleep apnea) Obstructive sleep apnea (adult) (pediatric) Chronic pain disorder Chronic pain syndrome Gastroesophageal reflux disease, unspecified whether esophagitis present Overactive bladder Hypertonicity of bladder Lower extremity edema Edema Pre-diabetes Other abnormal glucose Morbid obesity ([facility]) Morbid obesity Yeast infection of the skin Candidiasis of skin and nails Tobacco dependence Tobacco use disorder Mood disorder ([facility]) Unspecified episodic mood disorder Primary hypertension ([facility]) Unspecified essential hypertension Left hip pain Pain in joint, pelvic region and thigh Open wound of anterior abdominal wall, initial encounter Primary hypertension ([facility])- Primary Unspecified essential hypertension Yeast infection of the skin Candidiasis of skin and nails Morbid obesity ([facility] Morbid obesity Primary hypertension ([facility])- Primary Unspecified essential hypertension Allergic rhinitis, unspecified Acute cough Morbid obesity ([facility]) Morbid obesity Former cigarette smoker Personal history of tobacco use, presenting hazards to health Toxic metabolic encephalopathy- Primary Hemiparesis, right ([facility]) Unspecified hemiplegia affecting unspecified side Acute respiratory failure with hypoxia ([facility]) Heart murmur Undiagnosed cardiac murmurs Primary hypertension ([facility] Unspecified essential hypertension Morbid obesity ([facility]) Morbid obesity Bipolar disorder with severe depression ([facility]) Slurred speech Other speech disturbance Bilateral lower extremity edema- Primary Primary hypertension ([facility]) Unspecified essential hypertension Lower extremity edema Edema Essential (primary) hypertension ([facility]) Unspecified essential hypertension Gastro-esophageal reflux disease without esophagitis Allergic rhinitis, unspecified Bilateral lower extremity edema- Primary Morbid (severe) obesity due to excess calories ([facility]) Body mass index (BMI) 45.0-49.9, adult ([facility]) Pre-diabetes Other abnormal glucose Bilateral lower extremity edema- Primary Essential (primary) hypertension ([facility]) Unspecified essential hypertension Allergic rhinitis, unspecified OSMANY (obstructive sleep apnea) Obstructive sleep apnea (adult) (pediatric) Primary hypertension ([facility]) Unspecified essential hypertension Morbid obesity ([facility]) Morbid obesity Acute cystitis without hematuria- Primary Tobacco dependence Tobacco use disorder Needs flu shot Need for prophylactic vaccination and inoculation against influenza Morbid obesity ([facility]) Morbid obesity Well woman exam with routine gynecological exam- Primary Routine gynecological examination Morbid obesity ([facility]) Morbid obesity Metabolic encephalopathy- Primary OSMANY (obstructive sleep apnea) Obstructive sleep apnea (adult) (pediatric) Morbid obesity ([facility]) Morbid obesity Bilateral lower extremity edema Tobacco dependence Tobacco use disorder Bipolar disorder with severe depression ([facility]) At risk for polypharmacy Anxiety Anxiety state, unspecified Primary hypertension ([facility]) Unspecified essential hypertension Right bundle branch block (RBBB) determined by electrocardiography Primary hypertension ([facility])- Primary Unspecified essential hypertension Chronic kidney disease, stage 3a (HCC) ([facility]) Morbid (severe) obesity due to excess calories ([facility]) Body mass index (BMI) 45.0-49.9, adult ([facility]) OSMANY (obstructive sleep apnea) Obstructive sleep apnea (adult) (pediatric) Hemiparesis, right ([facility]) Unspecified hemiplegia affecting unspecified side Gastroesophageal reflux disease, unspecified whether esophagitis present Metabolic encephalopathy Essential (primary) hypertension ([facility]) Unspecified essential hypertension Allergic rhinitis, unspecified Gastro-esophageal reflux disease without esophagitis Bilateral lower extremity edema Primary hypertension ([facility])- Primary Unspecified essential hypertension Morbid (severe) obesity due to excess calories (CMS/HCC) Essential (primary) hypertension (CMS/HCC) Unspecified essential hypertension Allergic rhinitis, unspecified Gastro-esophageal reflux disease without esophagitis Bilateral lower extremity edema Bronchitis Bronchitis, not specified as acute or chronic documented in this encounter [facility] HealthcareEvaluation note* Diagnosis Encounter for annual [...] Acute respiratory failure with hypoxia (CMS/[facility]) Heart murmur Undiagnosed cardiac murmurs Primary hypertension (CMS/HCC) Unspecified essential hypertension Morbid obesity (CMS/HCC) Morbid obesity Bipolar disorder with severe depression (CMS/[facility]) Slurred speech Other speech disturbance [...] exam- Primary Routine gynecological examination Morbid obesity ([facility]) Morbid obesity Metabolic encephalopathy- Primary OSMANY (obstructive sleep apnea) Obstructive sleep apnea (adult) (pediatric) Morbid obesity ([facility]/HCC) Morbid obesity Bilateral lower extremity edema Tobacco dependence Tobacco use disorder Bipolar disorder with severe depression ([facility]) At risk for polypharmacy Anxiety Anxiety state, unspecified Primary hypertension ([facility]) Unspecified essential hypertension Right bundle branch block (RBBB) determined by electrocardiography Primary hypertension ([facility])- Primary Unspecified essential hypertension Chronic kidney disease, stage 3a (HCC) ([facility]) Morbid (severe) obesity due to excess calories ([facility]) Body mass index (BMI) 45.0-49.9, adult ([facility]) OSMANY (obstructive sleep apnea) Obstructive sleep apnea (adult) (pediatric) Hemiparesis, right ([facility]) Unspecified hemiplegia affecting unspecified side Gastroesophageal reflux disease, unspecified whether esophagitis present Metabolic encephalopathy Essential (primary) hypertension ([facility]) Unspecified essential hypertension Allergic rhinitis, unspecified Gastro-esophageal reflux disease without esophagitis Bilateral lower extremity edema Primary hypertension ([facility])- Primary Unspecified essential hypertension Morbid (severe) obesity due to excess calories ([facility]) Essential (primary) hypertension ([facility]) Unspecified essential hypertension Allergic rhinitis, unspecified Gastro-esophageal reflux disease without esophagitis Bilateral lower extremity edema Bronchitis Bronchitis, not specified as acute or chronic Primary hypertension ([facility])- Primary Unspecified essential hypertension Bronchitis Bronchitis, not specified as acute or chronic Bilateral lower extremity edema Morbid (severe) obesity due to excess calories ([facility]) Pre-diabetes Other abnormal glucose Allergic [...] Other abnormal glucose Morbid obesity ([facility]) Morbid obesity Yeast infection of [...] Candidiasis of skin and nails Morbid obesity ([facility]) Morbid obesity Primary hypertension- Primary Unspecified essential hypertension Allergic rhinitis, unspecified Acute cough Morbid [place] [place] Morbid obesity Former cigarette smoker Personal history of tobacco use, presenting hazards to health Toxic metabolic encephalopathy- Primary Hemiparesis, right (HCC) Unspecified hemiplegia affecting unspecified side Acute respiratory failure with hypoxia ([facility]) Heart murmur Undiagnosed cardiac murmurs Primary hypertension Unspecified essential hypertension Morbid obesity ([facility]) Morbid obesity Bipolar disorder with severe depression ([facility]) Slurred speech Other speech disturbance Bilateral lower extremity edema- Primary Primary hypertension Unspecified essential hypertension Lower extremity edema Edema Essential (primary) hypertension Unspecified essential hypertension Gastro-esophageal reflux disease without esophagitis Allergic rhinitis, unspecified Bilateral lower extremity edema- Primary Morbid (severe) obesity due to excess calories [place] [place] Body mass index (BMI) 45.0-49.9, adult [place] [place] Pre-diabetes Other abnormal glucose Bilateral lower extremity edema- Primary Essential (primary) hypertension Unspecified essential hypertension Allergic rhinitis, unspecified OSMANY (obstructive sleep apnea) Obstructive sleep apnea (adult) (pediatric) Primary hypertension Unspecified essential hypertension Morbid obesity [place] [place] Morbid obesity Well woman exam with routine gynecological exam- Primary Routine gynecological examination Morbid obesity [place] [place] Morbid obesity Metabolic encephalopathy- Primary OSMANY (obstructive sleep apnea) Obstructive sleep apnea (adult) (pediatric) Morbid obesity [place] [place] Morbid obesity Bilateral lower extremity edema Tobacco dependence Tobacco use disorder Bipolar disorder with severe depression ([facility]) At risk for polypharmacy Anxiety Anxiety state, unspecified Primary hypertension Unspecified essential hypertension Right bundle branch block (RBBB) determined by electrocardiography Primary hypertension- Primary Unspecified essential hypertension Chronic kidney disease, stage 3a [place] [place] Morbid (severe) obesity due to excess calories [place] [place] Body mass index (BMI) 45.0-49.9, adult [place] [place] OSMANY (obstructive sleep apnea) Obstructive sleep apnea (adult) (pediatric) Hemiparesis, right (HCC) Unspecified hemiplegia affecting unspecified side Gastroesophageal reflux disease, unspecified whether esophagitis present Metabolic encephalopathy Essential (primary) hypertension Unspecified essential hypertension Allergic rhinitis, unspecified Gastro-esophageal reflux disease without esophagitis Bilateral lower extremity edema Primary hypertension- Primary Unspecified essential hypertension Morbid (severe) obesity due to excess calories ([facility]-HCC) Essential (primary) hypertension Unspecified essential hypertension Allergic rhinitis, unspecified Gastro-esophageal reflux disease without esophagitis Bilateral lower extremity edema Bronchitis Bronchitis, not specified as acute or chronic Primary hypertension- Primary Unspecified essential hypertension Bronchitis Bronchitis, not specified as acute or chronic Bilateral lower extremity edema Morbid (severe) obesity due to excess calories ([facility]) Pre-diabetes Other abnormal glucose Allergic [...] Other abnormal glucose Morbid obesity ([facility]) Morbid obesity Yeast infection of [...] Candidiasis of skin and nails Morbid obesity ([facility]) Morbid obesity Primary hypertension- Primary Unspecified essential hypertension Allergic rhinitis, unspecified Acute cough Morbid obesity ([facility]) Morbid obesity Former cigarette smoker Personal history of tobacco use, presenting hazards to health Toxic metabolic encephalopathy- Primary Hemiparesis, right (HCC) Unspecified hemiplegia affecting unspecified side Acute respiratory failure with hypoxia ([facility]) Heart murmur Undiagnosed cardiac murmurs Primary hypertension Unspecified essential hypertension Morbid obesity ([facility]) Morbid obesity Bipolar disorder with severe depression ([facility]) Slurred speech Other speech disturbance Bilateral lower extremity edema- Primary Primary hypertension Unspecified essential hypertension Lower extremity edema Edema Essential (primary) hypertension Unspecified essential hypertension Gastro-esophageal reflux disease without esophagitis Allergic rhinitis, unspecified Bilateral lower extremity edema- Primary Morbid (severe) obesity due to excess calories [place] [place] Body mass index (BMI) 45.0-49.9, adult [place] [place] Pre-diabetes Other abnormal glucose Bilateral lower extremity edema- Primary Essential (primary) hypertension Unspecified essential hypertension Allergic rhinitis, unspecified OSMANY (obstructive sleep apnea) Obstructive sleep apnea (adult) (pediatric) Primary hypertension Unspecified essential hypertension Morbid obesity [place] [place] Morbid obesity Well woman exam with routine gynecological exam- Primary Routine gynecological examination Morbid obesity ([facility] [place] Morbid obesity Metabolic encephalopathy- Primary OSMANY (obstructive sleep apnea) Obstructive sleep apnea (adult) (pediatric) Morbid obesity ([facility] [place] Morbid obesity Bilateral lower extremity edema Tobacco dependence Tobacco use disorder Bipolar disorder with severe depression ([facility]) At risk for polypharmacy Anxiety Anxiety state, unspecified Primary hypertension Unspecified essential hypertension Right bundle branch block (RBBB) determined by electrocardiography Primary hypertension- Primary Unspecified essential hypertension Chronic kidney disease, stage 3a [place] [place] Morbid (severe) obesity due to excess calories [place] [place] Body mass index (BMI) 45.0-49.9, adult [place] [place] OSMANY (obstructive sleep apnea) Obstructive sleep apnea (adult) (pediatric) Hemiparesis, right ([facility]) Unspecified hemiplegia affecting unspecified side Gastroesophageal reflux disease, unspecified whether esophagitis present Metabolic encephalopathy Essential (primary) hypertension Unspecified essential hypertension Allergic rhinitis, unspecified Gastro-esophageal reflux disease without esophagitis Bilateral lower extremity edema Primary hypertension- Primary Unspecified essential hypertension Morbid (severe) obesity due to excess calories ([facility] [place] Essential (primary) hypertension Unspecified essential hypertension Allergic rhinitis, unspecified Gastro-esophageal reflux disease without esophagitis Bilateral lower extremity edema Bronchitis Bronchitis, not specified as acute or chronic Primary hypertension- Primary Unspecified essential hypertension Bronchitis Bronchitis, not specified as acute or chronic Bilateral lower extremity edema Morbid (severe) obesity due to excess calories [place] [place] Pre-diabetes Other abnormal glucose [...] Primary osteoarthritis of right knee Morbid obesity ([facility] [place] Morbid obesity documented in this encounter [facility] HealthcareEvaluation note* Diagnosis Encounter for annual wellness visit (AWV) in Medicare patient- Primary OSMANY (obstructive sleep apnea) Obstructive sleep apnea (adult) (pediatric) Chronic pain disorder Chronic pain syndrome Gastroesophageal reflux disease, unspecified whether esophagitis present Overactive bladder Hypertonicity of bladder Lower extremity edema Edema Pre-diabetes Other abnormal glucose Morbid obesity ([facility]) Morbid obesity Yeast infection of [...] skin and nails Morbid obesity [place] Morbid obesity Primary hypertension- Primary Unspecified essential hypertension Allergic rhinitis, unspecified Acute cough Morbid obesity [place] Morbid obesity Former cigarette smoker Personal history of tobacco use, presenting hazards to health Toxic metabolic encephalopathy- Primary Hemiparesis, right (HCC) Unspecified hemiplegia affecting unspecified side Acute respiratory failure with hypoxia ([facility]) Heart murmur Undiagnosed cardiac murmurs Primary hypertension Unspecified essential hypertension Morbid obesity [place] Morbid obesity Bipolar disorder with severe depression ([facility]) Slurred speech Other speech disturbance Bilateral lower extremity edema- Primary Primary hypertension Unspecified essential hypertension Lower extremity edema Edema Essential (primary) hypertension Unspecified essential hypertension Gastro-esophageal reflux disease without esophagitis Allergic rhinitis, unspecified Bilateral lower extremity edema- Primary Morbid (severe) obesity due to excess calories ([facility] Body mass index (BMI) 45.0-49.9, adult ([facility] Pre-diabetes Other abnormal glucose Bilateral lower extremity edema- Primary Essential (primary) hypertension Unspecified essential hypertension Allergic rhinitis, unspecified OSMANY (obstructive sleep apnea) Obstructive sleep apnea (adult) (pediatric) Primary hypertension Unspecified essential hypertension Morbid obesity [place] Morbid obesity Well woman exam with routine gynecological exam- Primary Routine gynecological examination Morbid obesity [place] Morbid obesity Metabolic encephalopathy- Primary OSMANY (obstructive sleep apnea) Obstructive sleep apnea (adult) (pediatric) Morbid obesity ([facility] Morbid obesity Bilateral lower extremity edema Tobacco dependence Tobacco use disorder Bipolar disorder with severe depression (HCC) At risk for polypharmacy Anxiety Anxiety state, unspecified Primary hypertension Unspecified essential hypertension Right bundle branch block (RBBB) determined by electrocardiography Primary hypertension- Primary Unspecified essential hypertension Chronic kidney disease, stage 3a ([facility]) Morbid (severe) obesity due to excess calories ([facility]) Body mass index (BMI) 45.0-49.9, adult ([facility] OSMANY (obstructive sleep apnea) Obstructive sleep apnea (adult) (pediatric) Hemiparesis, right ([facility]) Unspecified hemiplegia affecting unspecified side Gastroesophageal reflux disease, unspecified whether esophagitis present Metabolic encephalopathy Essential (primary) hypertension Unspecified essential hypertension Allergic rhinitis, unspecified Gastro-esophageal reflux disease without esophagitis Bilateral lower extremity edema Primary hypertension- Primary Unspecified essential hypertension Morbid (severe) obesity due to excess calories ([facility]) Essential (primary) hypertension Unspecified essential hypertension Allergic rhinitis, unspecified Gastro-esophageal reflux disease without esophagitis Bilateral lower extremity edema Bronchitis Bronchitis, not specified as acute or chronic Primary hypertension- Primary Unspecified essential hypertension Bronchitis Bronchitis, not specified as acute or chronic Bilateral lower extremity edema Morbid (severe) obesity due to excess calories ([facility] Pre-diabetes Other abnormal glucose [...] obesity due to excess calories ([facility] Primary hypertension Unspecified essential hypertension Anemia, unspecified type Bilateral lower extremity edema Osteoporosis, unspecified osteoporosis type, unspecified pathological fracture presence Chronic kidney disease, stage 3a ([facility] Pre-diabetes Other abnormal glucose documented in this encounter [facility] HealthcareEvaluation note* Diagnosis Encounter for annual wellness visit (AWV) in Medicare patient- Primary OSMANY (obstructive sleep apnea) Obstructive sleep apnea (adult) (pediatric) Chronic pain disorder Chronic pain syndrome Gastroesophageal reflux disease, unspecified whether esophagitis present Overactive bladder Hypertonicity of bladder Lower extremity edema Edema Pre-diabetes Other abnormal glucose Morbid obesity ([facility]) Morbid obesity Yeast infection of [...] Candidiasis of skin and nails Morbid obesity ([facility]) Morbid obesity Primary hypertension- Primary Unspecified essential hypertension Allergic rhinitis, unspecified Acute cough Morbid obesity [place] Morbid obesity Former cigarette smoker Personal history of tobacco use, presenting hazards to health Toxic metabolic encephalopathy- Primary Hemiparesis, right ([facility]) Unspecified hemiplegia affecting unspecified side Acute respiratory failure with hypoxia ([facility]) Heart murmur Undiagnosed cardiac murmurs Primary hypertension Unspecified essential hypertension Morbid obesity [place] Morbid obesity Bipolar disorder with severe depression ([facility]) Slurred speech Other speech disturbance Bilateral lower extremity edema- Primary Primary hypertension Unspecified essential hypertension Lower extremity edema Edema Essential (primary) hypertension Unspecified essential hypertension Gastro-esophageal reflux disease without esophagitis Allergic rhinitis, unspecified Bilateral lower extremity edema- Primary Morbid (severe) obesity due to excess calories ([facility] Body mass index (BMI) 45.0-49.9, adult ([facility] Pre-diabetes Other abnormal glucose Bilateral lower extremity edema- Primary Essential (primary) hypertension Unspecified essential hypertension Allergic rhinitis, unspecified OSMANY (obstructive sleep apnea) Obstructive sleep apnea (adult) (pediatric) Primary hypertension Unspecified essential hypertension Morbid obesity [place] Morbid obesity Well woman exam with routine gynecological exam- Primary Routine gynecological examination Morbid obesity ([facility] Morbid obesity Metabolic encephalopathy- Primary OSMANY (obstructive sleep apnea) Obstructive sleep apnea (adult) (pediatric) Morbid obesity ([facility] Morbid obesity Bilateral lower extremity edema Tobacco dependence Tobacco use disorder Bipolar disorder with severe depression ([facility]) At risk for polypharmacy Anxiety Anxiety state, unspecified Primary hypertension Unspecified essential hypertension Right bundle branch block (RBBB) determined by electrocardiography Primary hypertension- Primary Unspecified essential hypertension Chronic kidney disease, stage 3a ([facility] Morbid (severe) obesity due to excess calories ([facility] Body mass index (BMI) 45.0-49.9, adult ([facility] OSMANY (obstructive sleep apnea) Obstructive sleep apnea (adult) (pediatric) Hemiparesis, right (HCC) Unspecified hemiplegia affecting unspecified side Gastroesophageal reflux disease, unspecified whether esophagitis present Metabolic encephalopathy Essential (primary) hypertension Unspecified essential hypertension Allergic rhinitis, unspecified Gastro-esophageal reflux disease without esophagitis Bilateral lower extremity edema Primary hypertension- Primary Unspecified essential hypertension Morbid (severe) obesity due to excess calories ([facility]) Essential (primary) hypertension Unspecified essential hypertension Allergic rhinitis, unspecified Gastro-esophageal reflux disease without esophagitis Bilateral lower extremity edema Bronchitis Bronchitis, not specified as acute or chronic Primary hypertension- Primary Unspecified essential hypertension Bronchitis Bronchitis, not specified as acute or chronic Bilateral lower extremity edema Morbid (severe) obesity due to excess calories ([facility]) Pre-diabetes Other abnormal glucose Allergic [...] Morbid (severe) obesity due to excess calories ([facility]) Primary hypertension Unspecified essential hypertension Anemia, unspecified type Bilateral lower extremity edema Osteoporosis, unspecified osteoporosis type, unspecified pathological fracture presence Chronic kidney disease, stage 3a ([facility]) Pre-diabetes Other abnormal glucose Acute medial meniscus tear of right knee, initial encounter- Primary Chronic pain of right knee Morbid obesity ([facility]) Morbid obesity Primary osteoarthritis of right knee Preoperative testing Unspecified pre-operative examination documented in this encounter [facility] HealthcareHistory and physical note Author Jace Graham [facility] March 23, 2023 11:21am Note Date/Time March 23, 2023 11:21am [facility] [address] [place] [address] Gastroenterology H&P Signed Patient: Michelle Be MR#: [id number] : 1960 Acct:[id number] Age/Sex: 62 / F Adm Date: 3 Loc: Room: Type: [facility] Attending Dr: Jace Graham MD Copies to: MD Adelaida Plummer, HYDRAULIC MODELING ENGINEER-C~ Date of Service: 03/23/2023 HISTORY & PHYSICAL: [...] signed by Jace Graham MD> 03/23/23 112 [facility] Work Phone: History general Narrative [...] see above surg Hospitalization History stroke 2018 [place] Other Hospital Discharge instructions Additional Instructions Regular Diet [facility] Discharge instructions Additional [...] years. -Follow up with PCP. -Office number [phone].[facility] Work Phone: Reason for visit Narrative* Consultation (Routine) - Closed Specialty Diagnoses / Procedures Referred By Radha t Referred To Contact Neuropsychology Diagnoses Memory change Procedures MT OFFICE/OUTPATIENT NEW HIGH Juany Ramirez PA [address] [place] [address] Phone: tel: fax: David Foster, PhD [address] [address] [place] [address] Phone: tel: fax: Referral ID Status Reason Start Date Expiration Date V isits Requested Visits Authorized [id number] Closed Specialty Services Required 03/07/2024 09/03/2024 1 [...] Documents on File Type Date Recorded Patient Conductor/Brakeman Expl anation Power of Automobile Club Membership Sales Agent 03/10/2024 3:12 PM POA Documents on File Type Date Recorded Patient Conductor/Brakeman Expl anation Power of Automobile Club Membership Sales Agent 03/10/2024 3:12 PM POA Documents on File Type Date Recorded Patient Conductor/Brakeman Expl anation Power of Automobile Club Membership Sales Agent 03/16/2024 9:42 AM darian r of traffic law attorney Power of Automobile Club Membership Sales Agent 03/10/2024 3:12 PM POA Documents on File Type Date Recorded Patient Conductor/Brakeman Expl anation Power of Automobile Club Membership Sales Agent 03/16/2024 9:42 AM darian r of traffic law attorney Power of Automobile Club Membership Sales Agent 03/10/2024 3:12 PM POA Chief Complaint and Reason for Visit Chief Complaint Bipolar Depression Reason for Visit Allergies Bipolar 2 disorder Hypertension Morbid obesity with BMI of 45.0-49.9, adult OSMANY (obstructive sleep apnea) Restless legs syndrome Chief Complaint Screening Additional Source Comments INFORMATION SOURCE (unrecogn ized section and content) DATE CREATED AUTHOR 02/18/2019 [facility] DATE CREATED AUTHOR AUTHOR'S ORGANIZ ATION 11/15/2021 [facility] DATE CREATED AUTHOR AUTHOR'S ORGANIZ ATION 08/16/2022 [facility] DATE CREATED AUTHOR AUTHOR'S ORGANIZ ATION 10/09/2024 [facility] DATE CREATED AUTHOR AUTHOR'S ORGANIZ ATION 10/23/2024 [facility] DATE CREATED AUTHOR AUTHOR'S ORGANIZ ATION 11/11/2024 [facility] DATE CREATED AUTHOR AUTHOR'S ORGANIZ ATION 11/21/2024 [facility] EPIC Care Teams (unrecognized sec tion and content) Team Status: Active Member Role Status Dates Adelaida Mcnair Yingmarquesbob Primary Care Provider Active Team Status: Inactive Member Role Status Dates Adelaida Tabby Carrion Primary Care Provider Active Gaudencio Monk [...] Strong MD Other Provider Active Joellen Le HYDRAULIC MODELING ENGINEER-C Other Provider Active Severo Yancey MD Other Provider Active Rao Webber MD Other Provider Active Yuan Shi MD Other Provider Active Delroy Ramirez MD Other Provider Active Berta Comer , DO Other Provider Active Negrito Ruiz , DO Other Provider Active Lacho Singh , DO Other Provider Active Rachana Hobson , KEYBOARDING CLERK Other Provider Active Rob Lake , DO Other Provider Active Jeff Alvarez MD Other Provider Active Urmila Rinaldi , KEYBOARDING CLERK Other Provider Active Bina Mayberry KEYBOARDING CLERK Other Provider Active Mir Bradford MD Other Provider Active Te Da Silva MD Other Provider Active Debra Landaverde RN Other Provider Active Team Status: Inactive Member Role Status Dates Adelaida Carrion Primary Care Provider Active Jace Graham MD Attending Provider Active Associate Professor Of Music Relationship Specialty Start Date End Date José Luis Roberts MD [address] [place] [address] PCP - General Family Medicine 05/18/23 Adelaida Carrion NP [address] [place] [address] Referring Physician Nurse Practitioner 10/14/22 Associate Professor Of Music Relationship Specialty Start Date End Date José Luis Roberts MD [address] [place] [address] PCP - General Family Medicine 05/18/23 Adelaida Carrion NP [address] [place] [address] Referring Physician Nurse Practitioner 10/14/22 Associate Professor Of Music Relationship Specialty Start Date End Date José Luis Roberts MD [address] [place] [address] PCP - General Family Medicine 05/18/23 Adelaida Carrion NP [address] [place] [address] Referring Physician Nurse Practitioner 10/14/22 Associate Professor Of Music Relationship Specialty Start Date End Date José Luis Roberts MD [address] [place] [address] PCP - General Family Medicine 05/18/23 Adelaida Carrion NP Referring Physician Nurse Practitioner 10/14/22 Miriam Suarez DO [address] [place], [place] [address] Referring Physician Neurology 06/29/23 [place] LPN Licensed Practical Nurse Family Medicine 12/18/23 Associate Professor Of Music Relationship Specialty Start Date End Date José Luis Roberts MD [address] [place] [address] PCP - General Family Medicine 05/18/23 Adelaida Carrion NP Referring Physician Nurse Practitioner 10/14/22 Miriam Suarez DO [address] [place], [place] [address] Referring Physician Neurology 06/29/23 [place] LPN Licensed Practical Nurse Family Medicine 12/18/23 Associate Professor Of Music Relationship Specialty Start Date End Date Unallocated, Familias MD Mariela [address] [place] [address] PCP - General Family Medicine 01/27/24 Miriam Suarez DO [address] [place] [address] Referring Physician Neurology 06/29/23 [place] LPN Licensed Practical Nurse Family Medicine 12/18/23 Adelaida Carrion NP [address] [place] [address] Nurse Practitioner Family Medicine 01/27/24 Associate Professor Of Music Relationship Specialty Start Date End Date Unallocated, [place] [address] PCP - General Family Medicine 01/27/24 Miriam Suarez DO [address] [place] [address] Referring Physician Neurology 06/29/23 [place] LPN Licensed Practical Nurse Family Medicine 12/18/23 Adelaida Carrion, BRIANA [address] [place] [address] Nurse Practitioner Family Medicine 01/27/24 Associate Professor Of Music Relationship Specialty Start Date End Date José Luis Roberts MD [address] [place] [address] PCP - General Family Medicine 02/02/24 Miriam Suarez DO [address] [place] [address] Referring Physician Neurology 06/29/23 [place] LPN Licensed Practical Nurse Family Medicine 12/18/23 Adelaida Carrion, BRIANA [address] [place] [address] Nurse Practitioner Family Medicine 01/27/24 Associate Professor Of Music Relationship Specialty Start Date End Date José Luis Roberts MD [address] [place] [address] PCP - General Family Medicine 02/02/24 Miriam Suarez DO [address] [place] [address] Referring Physician Neurology 06/29/23 Adelaida Carrion NP [address] [place] [address] Nurse Practitioner Family Medicine 01/27/24 Bong Rosado MA Family Medicine 02/12/24 Associate Professor Of Music Relationship Specialty Start Date End Date José Luis Roberts MD [address] [place] [address] PCP - General Family Medicine 02/02/24 Miriam Suarez DO [address] [place], [place] [address] Referring Physician Neurology 06/29/23 Adelaida Carrion NP [address] [place] [address] Nurse Practitioner Family Medicine 01/27/24 Bong Rosado MA Family Medicine 02/12/24 Associate Professor Of Music Relationship Specialty Start Date End Date José Luis Roberts MD [address] [place] [address] PCP - General Family Medicine 02/02/24 Miriam Suarez DO [address] [place] [address] Referring Physician Neurology 06/29/23 Adelaida Carrion NP [address] [place] [address] Nurse Practitioner Family Medicine 01/27/24 Bong Rosado MA Family Medicine 02/12/24 Associate Professor Of Music Relationship Specialty Start Date End Date José Luis Roberts MD [address] [place] [address] PCP - General Family Medicine 02/02/24 Miriam Suarez DO [address] [place] [address] Referring Physician Neurology 06/29/23 Adelaida Carrion, BRIANA [address] [place] [address] Nurse Practitioner Family Medicine 01/27/24 Bong Rosado MA Family Medicine 02/12/24 Associate Professor Of Music Relationship Specialty Start Date End Date José Luis Roberts MD [address] [place] [address] PCP - General Family Medicine 02/02/24 Miriam Suarez DO [address] [place] [address] Referring Physician Neurology 06/29/23 Adelaida Carrion, BRIANA [address] [place] [address] Nurse Practitioner Family Medicine 01/27/24 Bong Rosado MA Family Medicine 02/12/24 Associate Professor Of Music Relationship Specialty Start Date End Date José Luis Roberts MD [address] [place] [address] PCP - General Family Medicine 02/02/24 Miriam Suarez DO [address] [place] [address] Referring Physician Neurology 06/29/23 Adelaida Carrion NP [address] [place] [address] Nurse Practitioner Family Medicine 01/27/24 Bong Rosado MA Family Medicine 02/12/24 Associate Professor Of Music Relationship Specialty Start Date End Date José Luis Roberts MD [address] [place] [address] PCP - General Family Medicine 02/02/24 Miriam Suarez DO [address] [place], [place] [address] Referring Physician Neurology 06/29/23 Adelaida Carrion NP [address] [place] [address] Nurse Practitioner Family Medicine 01/27/24 Bong Rosado MA Family Medicine 02/12/24 Associate Professor Of Music Relationship Specialty Start Date End Date José Luis Roberts MD [address] [place] [address] PCP - General Family Medicine 02/02/24 Miriam Suarez DO [address] [place] [address] Referring Physician Neurology 06/29/23 Adelaida Carrion NP [address] [place] [address] Nurse Practitioner Family Medicine 01/27/24 Bong Rosado MA Family Medicine 02/12/24 Associate Professor Of Music Relationship Specialty Start Date End Date José Luis Roberts MD [address] [place] [address] PCP - General Family Medicine 02/02/24 Miriam Suarez DO [address] [place] [address] Referring Physician Neurology 06/29/23 Adelaida Carrion, BRIANA [address] [place] [address] Nurse Practitioner Family Medicine 01/27/24 Bong Rosado MA Family Medicine 02/12/24 Associate Professor Of Music Relationship Specialty Start Date End Date José Lusi Roberts MD [address] [place] [address] PCP - General Family Medicine 02/02/24 Miriam Suarez DO [address] [place] [address] Referring Physician Neurology 06/29/23 Adelaida Carrion, BRIANA [address] [place] [address] Nurse Practitioner Family Medicine 01/27/24 Bong Rosado MA Family Medicine 02/12/24 Associate Professor Of Music Relationship Specialty Start Date End Date José Luis Roberts MD [address] [place] [address] PCP - General Family Medicine 02/02/24 Miriam Suarez DO [address] [place] [address] Referring Physician Neurology 06/29/23 Adelaida Carrion NP [address] [place] [address] Nurse Practitioner Family Medicine 01/27/24 Bong Rosado MA Family Medicine 02/12/24 Associate Professor Of Music Relationship Specialty Start Date End Date José Luis Roberts MD [address] [place] [address] PCP - General Family Medicine 05/18/23 Adelaida Carrion NP Referring Physician Nurse Practitioner 10/14/22 Miriam Suarez DO [address] [place] [address] Referring Physician Neurology 06/29/23 Mathew Parra LPN Licensed Practical Nurse Family Medicine 07/23/23 Associate Professor Of Music Relationship Specialty Start Date End Date José Luis Roberts MD [address] [place] [address] PCP - General Family Medicine 05/18/23 Adelaida Carrion NP Referring Physician Nurse Practitioner 10/14/22 Miriam Suarez DO [address] [place] [address] Referring Physician Neurology 06/29/23 Mathew Parra LPN Licensed Practical Nurse Family Medicine 07/23/23 Associate Professor Of Music Relationship Specialty Start Date End Date José Luis Roberts MD [address] [place] [address] PCP - General Family Medicine 05/18/23 Adelaida Carrion NP Referring Physician Nurse Practitioner 10/14/22 Miriam Suarez DO [address] [place] [address] Referring Physician Neurology 06/29/23 Mathew Parra LPN Licensed Practical Nurse Family Medicine 07/23/23 Associate Professor Of Music Relationship Specialty Start Date End Date José Luis Roberts MD [address] [place] [address] PCP - General Family Medicine 05/18/23 Adelaida Carrion NP Referring Physician Nurse Practitioner 10/14/22 Miriam Suarez DO [address] [place], [place] [address] Referring Physician Neurology 06/29/23 Mathew Parra LPN Licensed Practical Nurse Family Medicine 07/23/23 Associate Professor Of Music Relationship Specialty Start Date End Date José Luis Roberts MD [address] [place] [id number] PCP - General Family Medicine 05/18/23 Adelaida Carrion NP Referring Physician Nurse Practitioner 10/14/22 Miriam Suarez DO [address] [place] [address] Referring Physician Neurology 06/29/23 [place] De Leon LPN Licensed Practical Nurse Family Medicine 12/18/23 Associate Professor Of Music Relationship Specialty Start Date End Date José Luis Roberts MD [address] [place] [address] PCP - General Family Medicine 05/18/23 Adelaida Carrion NP Referring Physician Nurse Practitioner 10/14/22 Miriam Suarez DO [address] [place] [address] Referring Physician Neurology 06/29/23 [place] De Leon LPN Licensed Practical Nurse Family Medicine 12/18/23 Associate Professor Of Music Relationship Specialty Start Date End Date José Luis Roberts MD [address] [place] [address] PCP - General Family Medicine 05/18/23 Adelaida Carrion NP Referring Physician Nurse Practitioner 10/14/22 Miriam Suarez DO [address] [place] [address] Referring Physician Neurology 06/29/23 [place] De Leon LPN Licensed Practical Nurse Family Medicine 12/18/23 Associate Professor Of Music Relationship Specialty Start Date End Date José Luis Roberts MD [address] [place] [address] PCP - General Family Medicine 02/02/24 Miriam Suarez DO [address] [place] [address] Referring Physician Neurology 06/29/23 Adelaida Carrion NP [address] [place] [address] Nurse Practitioner Family Medicine 01/27/24 Bong Rosado MA Family Medicine 02/12/24 Associate Professor Of Music Relationship Specialty Start Date End Date José Luis Roberts MD [address] [place] [address] PCP - General Family Medicine 02/02/24 Miriam Suarez DO [address] [place] [address] Referring Physician Neurology 06/29/23 Adelaida Carrion NP [address] [place] [address] Nurse Practitioner Family Medicine 01/27/24 Bong Rosado MA Family Medicine 02/12/24 Associate Professor Of Music Relationship Specialty Start Date End Date José Luis Roberts MD [address] [place] [address] PCP - General Family Medicine 02/02/24 Miriam Suarez DO [address] [place] [address] Referring Physician Neurology 06/29/23 Adelaida Carrion NP [address] [place] [address] Nurse Practitioner Family Medicine 01/27/24 Bong Rosado MA Family Medicine 02/12/24 Associate Professor Of Music Relationship Specialty Start Date End Date José Luis Roberts MD [address] [place] [address] PCP - General Family Medicine 02/02/24 Miriam Suarez DO [address] [place] [address] Referring Physician Neurology 06/29/23 Adelaida Carrion, BRIANA [address] [place] [address] Nurse Practitioner Family Medicine 01/27/24 Bong Rosado MA Family Medicine 02/12/24 Associate Professor Of Music Relationship Specialty Start Date End Date José Luis Roberts MD [address] [place] [address] PCP - General Family Medicine 02/02/24 Miriam Suarez DO [address] [place] [address] Referring Physician Neurology 06/29/23 Adelaida Carrion NP [address] [place] [address] Nurse Practitioner Family Medicine 01/27/24 Bong Rosado MA Family Medicine 02/12/24 Associate Professor Of Music Relationship Specialty Start Date End Date José Luis Roberts MD [address] [place] [address] PCP - General Family Medicine 02/02/24 Miriam Suarez DO [address] [place] [address] Referring Physician Neurology 06/29/23 Adelaida Carrion NP [address] [place] [address] Nurse Practitioner Family Medicine 01/27/24 Bong Rosado MA Family Medicine 02/12/24 Associate Professor Of Music Relationship Specialty Start Date End Date José Luis Roberts MD [address] [place] [address] PCP - General Family Medicine 02/02/24 Miriam Suarez DO [address] [place] [address] Referring Physician Neurology 06/29/23 Adelaida Carrion, BRIANA [address] [place] [address] Nurse Practitioner Family Medicine 01/27/24 Bong Rosado MA Family Medicine 02/12/24 Juany Leggett PA [address] [place] [address] Physician Supplier Quality Engineer Neurology 07/26/24 Associate Professor Of Music Relationship Specialty Start Date End Date José Luis Roberts MD [address] [place] [address] PCP - General Family Medicine 02/02/24 Miriam Suarez DO [address] [place] [address] Referring Physician Neurology 06/29/23 Adelaida Carrion NP [address] [place] [address] Nurse Practitioner Family Medicine 01/27/24 Bong Rosado MA Family Medicine 02/12/24 Juany Leggett PA [address] [place], [place] [address] Physician Supplier Quality Engineer Neurology 07/26/24 Associate Professor Of Music Relationship Specialty Start Date End Date José Luis Roberts MD [address] [place] [address] PCP - General Family Medicine 02/02/24 Miriam Suarez DO [address] [place] [id number] Referring Physician Neurology 06/29/23 Adelaida Carrion NP [address] [place] [address] Nurse Practitioner Family Medicine 01/27/24 Bong Rosado, [place] Family Medicine 02/12/24 Juany Leggett PA [address] [place] [id number] Physician Supplier Quality Engineer Neurology 07/26/24 Associate Professor Of Music Relationship Specialty Start Date End Date José Luis Roberts MD [address] [place] [address]10[address] PCP - General Family Medicine 02/02/24 Miriam Suarez DO [address] [place] [address] Referring Physician Neurology 06/29/23 Adelaida Carrion NP [address] [place] [address] Nurse Practitioner Family Medicine 01/27/24 Bong Rosado MA Family Medicine 02/12/24 Juany Leggett PA [address] [place] [address] Physician Supplier Quality Engineer Neurology 07/26/24 Associate Professor Of Music Relationship Specialty Start Date End Date José Luis Roberts MD [address] [place] [address]10[address] PCP - General Family Medicine 02/02/24 Miriam Suarez DO [address] [place] [address] Referring Physician Neurology 06/29/23 Adelaida Carrion NP [address] [place] [address] Nurse Practitioner Family Medicine 01/27/24 Bong Rosado MA Family Medicine 02/12/24 Juany Leggett PA [address] [place] [address] Physician Supplier Quality Engineer Neurology 07/26/24 Associate Professor Of Music Relationship Specialty Start Date End Date Jsoé Luis Roberts MD [address] [place] [address]10[address] PCP - General Family Medicine 02/02/24 Miriam Suarez DO [address] [place] [address] Referring Physician Neurology 06/29/23 Adelaida Carrion NP [address] [place] [address] Nurse Practitioner Family Medicine 01/27/24 Bong Rosado MA Family Medicine 02/12/24 Juany Leggett PA [address] [place] [address] Physician Supplier Quality Engineer Neurology 07/26/24 Associate Professor Of Music Relationship Specialty Start Date End Date José Luis Roberts MD [address] [place] [address] PCP - General Family Medicine 02/02/24 Miriam Suarez DO [address] [place] [address] Referring Physician Neurology 06/29/23 Adelaida Carrion NP [address] [place] [address]10[address] Nurse Practitioner Family Medicine 01/27/24 Bong Rosado, [place] [address] [place] [address] Family Medicine 02/12/24 Juany Leggett PA [address] [place], [place] [address] Physician Supplier Quality Engineer Neurology 07/26/24 Associate Professor Of Music Relationship Specialty Start Date End Date José Luis Roberts MD [address] [place] [address] PCP - General Family Medicine 02/02/24 Miriam Suarez DO [address] [place] [phone] Referring Physician Neurology 06/29/23 Adelaida Carrion, BRIANA [address] [place] [address] Nurse Practitioner Family Medicine 01/27/24 Bong Rosado MA [address] [place] [address] Family Medicine 02/12/24 Juany Leggett PA [address] [place], [place] [address] Physician Supplier Quality Engineer Neurology 07/26/24 Associate Professor Of Music Relationship Specialty Start Date End Date José Luis Roberts MD [address] [place] [address]10[address] PCP - General Family Medicine 02/02/24 Miriam Suarez DO [address] [place] [address] Referring Physician Neurology 06/29/23 Adelaida Carrion, BRIANA [address] [place] [address] Nurse Practitioner Family Medicine 01/27/24 Bong Rosado MA [address] [place] [address] Family Medicine 02/12/24 Juany Leggett PA [address] [place] [address] Physician Supplier Quality Engineer Neurology 07/26/24 Associate Professor Of Music Relationship Specialty Start Date End Date José Luis Roberts MD [address] [place] [address]10[address] PCP - General Family Medicine 02/02/24 Miriam Suarez DO [address] [place] [address] Referring Physician Neurology 06/29/23 Adelaida Carrion, BRIANA [address] [place] [address] Nurse Practitioner Family Medicine 01/27/24 Bong Rosado, [place] [address] [place] [address] Family Medicine 02/12/24 Juany Leggett PA [address] [place] [address] Physician Supplier Quality Engineer Neurology 07/26/24 Associate Professor Of Music Relationship Specialty Start Date End Date José Luis Roberts MD [address] [place] [address] PCP - General Family Medicine 02/02/24 Miriam Suarez DO [address] [place], [place] [address] Referring Physician Neurology 06/29/23 Adelaida Carrion NP [address] [place] [address] Nurse Practitioner Family Medicine 01/27/24 Bong Rosado MA [address] [place] [address] Family Medicine 02/12/24 Juany Leggett PA [address] [place] [address] Physician Supplier Quality Engineer Neurology 07/26/24 Associate Professor Of Music Relationship Specialty Start Date End Date José Luis Roberts MD [address] [place] [address] PCP - General Family Medicine 02/02/24 Miriam Suarez DO [address] [place] [address] Referring Physician Neurology 06/29/23 Adelaida Carrion NP [address] [place] [address] Nurse Practitioner Family Medicine 01/27/24 Bong Rosado MA [address] [place] [address] Family Medicine 02/12/24 Juany Leggett PA [address] [place] [address] Physician Supplier Quality Engineer Neurology 07/26/24 Associate Professor Of Music Relationship Specialty Start Date End Date José Luis Roberts MD [address] [place] [address] PCP - General Family Medicine 02/02/24 Miriam Suarez DO [address] [place] [address] Referring Physician Neurology 06/29/23 Adelaida Carrion NP [address] [place] [address] Nurse Practitioner Family Medicine 01/27/24 Bong Rosado MA [address] [place] [place] [address] Family Medicine 02/12/24 Juany Leggett PA [address] [place] [address] Physician Supplier Quality Engineer Neurology 07/26/24 Associate Professor Of Music Relationship Specialty Start Date End Date José Luis Roberts MD [address] [place] [address] PCP - General Family Medicine 02/02/24 Miriam Suarez DO [address] [place] [address] Referring Physician Neurology 06/29/23 Adelaida Carrion NP [address] [place] [address] Nurse Practitioner Family Medicine 01/27/24 Bong Rosado MA [address] [place] [place] [address] Family Medicine 02/12/24 Juany Leggett PA [address] [place] [address] Physician Supplier Quality Engineer Neurology 07/26/24 Associate Professor Of Music Relationship Specialty Start Date End Date José Luis Roberts MD [address] [place] [address] PCP - General Family Medicine 02/02/24 Miriam Suarez DO [address] [place] [address] Referring Physician Neurology 06/29/23 Adelaida Carrion, BRIANA [address] [place] [address] Nurse Practitioner Family Medicine 01/27/24 Bong Rosado MA [address] [place] [address] Family Medicine 02/12/24 Juany Leggett PA [address] [place] [address] Physician Supplier Quality Engineer Neurology 07/26/24 Associate Professor Of Music Relationship Specialty Start Date End Date José Luis Roberts MD [address] [place] [address] PCP - General Family Medicine 02/02/24 Miriam Suarez DO [address] [place] [address] Referring Physician Neurology 06/29/23 Adelaida Carrion, BRIANA [address] [place] [address] Nurse Practitioner Family Medicine 01/27/24 Bong Rosado MA [address] [place] [address] Family Medicine 02/12/24 Juany Leggett PA [address] [place] [address] Physician Supplier Quality Engineer Neurology 07/26/24 REASON FOR VISIT (unrecogniz ed [...] BE BASED ON THE PRIMARY CLINICAL RECORDS. [employer] provides no warranty or guarantee of the accuracy or completeness of information in this document.
--- NOTE | 2024-11-30 08:08 | PM.CN ---
Consult Note: HPI Data of Consult Patient: known to practice within the last 3 years Requesting Physician: Bhakti Culp NP Primary Care Provider: Adelaida Carrion NP Consult Narrative Reason for consult: f/u Narrative: Nasim Ingram a pleasant 63 year old female presents for evaluation of chronic low back pain secondary to lumbar spondylosis, lumbar ddd, and lumbar stenosis. pt has failed to benefit from > 6 weeks of PT and HEP, heat, ice, tylenol, and cannot take NSAIDs due to hx of gastric bypass. pt utilizing tizanidine, duloxetine, and gabapentin with benefit without side effects. Pain today 4/10 increasing to 10/10 with standing, walking, activity, lifting. recently underwent lumbar MRI with results below. cc:: CC: Bhakti Culp NP [facility] Medical History FH: bariatric surgery ?Z84.89 - Family history of other specified conditions (ICD-10) Upper back pain ?M54.9 - Dorsalgia, unspecified (ICD-10) Osteoarthritis ?M19.90 - Unspecified osteoarthritis, unspecified site (ICD-10) Neck pain ?M54.2 - Cervicalgia (ICD-10) Low back pain ?M54.50 - Low back pain, unspecified (ICD-10) Fibromyalgia ?M79.7 - Fibromyalgia (ICD-10) Bipolar 1 disorder ?F31.9 - Bipolar disorder, unspecified (ICD-10) Acid reflux ?K21.9 - Gastro-esophageal reflux disease without esophagitis (ICD-10) Obesity ?E66.9 - Obesity, unspecified (ICD-10) Sleep apnea ?G47.30 - Sleep apnea, unspecified (ICD-10) Heart murmur ?R01.1 - Cardiac murmur, unspecified (ICD-10) High cholesterol ?E78.00 - Pure hypercholesterolemia, unspecified (ICD-10) Hypertension ?I10 - Essential (primary) hypertension (ICD-10) Surgical History S/P dilatation and curettage ?Z98.890 - Other specified postprocedural states (ICD-10) H/O breast biopsy ?Z98.890 - Other specified postprocedural states (ICD-10) S/P ORIF (open reduction internal fixation) fracture ?Z98.890 - Other specified postprocedural states (ICD-10) ?Z87.81 - Personal history of (healed) traumatic fracture (ICD-10) Hx of laparoscopic gastric banding ?Z98.84 - Bariatric surgery status (ICD-10) History of tonsillectomy and adenoidectomy ?Z90.89 - Acquired absence of other organs (ICD-10) History of appendectomy ?Z90.49 - Acquired absence of other specified parts of digestive tract (ICD-10) History of hemilaminectomy ?Z98.890 - Other specified postprocedural states (ICD-10) History of cholecystectomy ?Z90.49 - Acquired absence of other specified parts of digestive tract (ICD-10) Previous section ?Z98.891 - History of uterine scar from previous surgery (ICD-10) Social History Within the past year, how often did you have a drink containing alcohol: never Within the past year, how often did you have six or more drinks on one occasion: never Score interpretation: A score less than 3 is consistent with normal alcohol consumption. 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 Known occupational exposures/hazards: No Highest level of school completed/degree received: Bachelor's degree Do you want help with school or training: No Little interest or pleasure in doing things: not at all Feeling down, depressed, or hopeless: several days Meds Home Medications and Allergies Home Medications ?Medication ?Instructions ?Recorded ?Confirmed ?Type amlodipine 10 mg tablet (Norvasc) 10 mg PO DAILY 09/10/22 10/08/24 History biotin 1 mg capsule 5 mg PO DAILY 09/10/22 09/19/24 History cariprazine 4.5 mg capsule 4.5 mg PO Q24H 09/10/22 09/19/24 History (Vraylar) duloxetine 60 mg capsule,delayed 60 mg PO BID 09/10/22 10/08/24 History release ferrous sulfate 325 mg (65 mg 325 mg PO BID 09/10/22 09/19/24 History iron) tablet (FeroSul) magnesium 200 mg tablet 400 mg PO QDAY 09/10/22 09/19/24 History melatonin 12 mg tablet 12 mg PO .HS PRN sleep 09/10/22 09/19/24 History omeprazole 20 mg capsule,delayed 20 mg PO QDAY 09/10/22 10/08/24 History release trazodone 150 mg tablet 150 mg PO .HS 09/10/22 10/08/24 History fluticasone propionate 50 2 spray intranasal DAILY PRN 10/20/23 10/08/24 History mcg/actuation nasal allergy symptoms spray,suspension (Flonase Allergy Relief) spironolactone 50 mg tablet 50 mg PO DAILY 10/20/23 10/08/24 History gabapentin 300 mg capsule 300 mg PO BID 11/03/23 10/08/24 History calcium citrate 200 mg PO QID 11/04/23 09/19/24 History carvedilol 12.5 mg tablet 12.5 mg PO Q12H 11/04/23 10/08/24 History multivitamin 1 tab PO DAILY 11/04/23 09/19/24 History fexofenadine 60 mg tablet (Naida 60 mg PO BID 08/08/24 09/19/24 History Allergy) losartan 100 mg tablet 100 mg PO DAILY 10/08/24 10/08/24 History ropinirole 3 mg tablet 3 mg PO .QHS 10/08/24 10/08/24 History tizanidine 4 mg tablet 4 mg PO TID PRN muscle spasticity 10/08/24 10/08/24 History Allergies Allergy/AdvReac Type Severity Reaction Status Date / Time levetiracetam (From Keppra) Allergy Severe Unknown Verified 10/08/24 02:29 adhesive Allergy Intermediate Blister Verified 10/08/24 02:29 Penicillins Allergy Intermediate Unknown Verified 10/08/24 02:29 tetracycline Allergy Intermediate Unknown Verified 10/08/24 02:29 eszopiclone (From Lunesta) Allergy Unknown Verified 10/08/24 02:29 milnacipran (From Savella) AdvReac Intermediate Agitated Verified 10/08/24 02:29 prochlorperazine (From AdvReac Intermediate Agitated Verified 10/08/24 02:29 Compazine) Exam Constitutional Documenting provider has reviewed patient's vital signs: yes Common normals: no apparent distress, oriented x3, healthy appearing, alert and well nourished General appearance: cooperative HENMT Common normals: normocephalic, hearing grossly normal bilaterally and moist oral mucous membranes Head and scalp: normocephalic Eye Common normals: PERRL Pupil: PERRL Neck & C-Spine Common normals: full ROM General: normal visual inspection Chest Common normals: inspection of chest normal Respiratory Common normals: normal respiratory effort, no retractions and no use of accessory muscles Back & Pelvis Lumbar spine/lower back: ROM limited, pain with ROM, lumbar spinal tenderness Lumbar spinal tenderness location: L3, L4 and L5, straight leg raise positive right and straight leg raise positive left Sacroiliac joints: SI joints normal Other: increased low back pain with standing and walking, improves with forward flexion and sitting following L4/5 pattern Neuro Common normals: oriented x3 Sensorium/orientation: alert Psych Common normals: mental status grossly normal, thought process normal, cooperative, affect normal, speech normal and activity/motor behavior normal Speech: normal speech Thought process: normal thought process Results Imaging Lumbar MRI : Attestation: I have reviewed the pertinent imaging results. Radiologist's impression: Lumbar vertebral heights are maintained. Anterolisthesis of renal for no 07/10/2019 3 mm and 4 mm likely likely related to the degenerative facet arthropathy this level. Minimal intervertebral space narrowing notably L5-S1. Conus medullaris service normally at L1-L2. T12-L1: Mild to moderate facet arthropathy. Mild to moderate right foraminal narrowing and mild left from narrowing. No significant disc disease or disc protrusion. Canal is patent. L1-2: Mild to moderate right mild left facet arthropathy. No significant disc disease disc protrusion central canal or neural from narrowing identified. L2-3: Mild to moderate facet arthropathy. Mild left foraminal narrowing. Right foramen and central canal patent. No significant disc disease or disc protrusion. L3-4: Broad-based disc bulge with moderate to severe facet arthropathy. Slight. Posterior disc noted. There is moderate central canal narrowing. [id number] neural foraminal narrowing. L4-5: Circumferential disc bulge with small right subarticular zone T2 hyperintensity and protrusion questionably contacting the right traversing L5 nerve root. No high-grade mass effect or displacement on the L5 nerve root identified. Otherwise moderate foraminal narrowing. Advanced facet arthropathy. [id number] central canal stenosis. L5-S1: Disc desiccation with moderate facet arthropathy. Canal neural foramina patent. Additional Findings Additional findings: If on a controlled substance or opioids, I have checked an [place] report on this patient and there are no aberrancies noted in the prescribing history.??If on a controlled substance or opioid a drug screen was completed and reviewed within the last year, and if there has not been a drug screen completed we ordered one today to monitor higher risk, state monitored pain medication use. As part of providing excellent, safe, comprehensive care, the following was completed at our patient's visit: 1. A medication reconciliation and review to ensure accurate knowledge of current/active medications, including asking our patients to inform us about any awqv-[id number] medications or herbal remedies/nutritional supplements/alternative remedies. 2. A review to specifically ensure our patients have had annual screening for screening for depression, screening for tobacco use, and screening for unhealthy alcohol use. For concerning screenings had a discussion with the patient, provided patient education, and recommended follow-up with primary care provider when appropriate. If patient noted with a risk of falling, they received education on strength, gait, and balance training to prevent future risk of falling. Portions of this note may have been carried over from the previous visit and updated as appropriate. Please note this office utilizes paper charting in addition to the electronic medical record. A list of current medications, vitals, and PMH is available there as the clinical staff outside of myself do not have access to [email or web address] charting during the clinic day operations. As part of providing quality comprehensive care the current medications, vitals, and PMH were reviewed in the paper chart. Assessment and Plan Assessment and Plan (1) Lumbar stenosis with neurogenic claudication: Assessment and Plan: The patient has had over 3 months of moderate to severe low back pain with functional impairment and inadequate response to conservative care including NSAIDS (unless there are contraindication such as concurrent blood thinners), multiple oral or topical pain medications, and home exercise program/physical therapy.? Patient has completed >6 weeks of guided home exercise program and/or formal physical therapy program without relief of their symptoms.? The Oswestry Disability Index was completed, and the patient scored a 47%.? The patient noted the following:?? moderate to severe pain with ADLs, standing, lifting, walking, sleeping, social life, travel (2) Lumbar spondylosis: Assessment and Plan: consider bilateral L3,4 L4,5 mbbs for facet mediated low back pain in the future (3) Greater trochanteric bursitis of both hips: (4) Sacroiliitis: Plan lumbar MRI reviewed with pt, will trial bilateral L4-5 TFESI for lumbar stenosis with NC and lumbar disc bulge under fluoroscopy continue current medications, risks vs benefits reviewed continue HEP as tolerated f/u after procedure
== END 2024-11-30 07:43 | disposition home or self-care (01) ==
LOC: PM 07:43
PROVIDERS: PCP Nurse Practitioner; Visit Provider Nurse Practitioner
DX: M48.062 Spinal stenosis, lumbar region with neurogenic claudication (principal); M47.816 Spondylosis without myelopathy or radiculopathy, lumbar region; M70.62 Trochanteric bursitis, left hip; M70.61 Trochanteric bursitis, right hip; M46.1 Sacroiliitis, not elsewhere classified
CPT/HCPCS: G0463

== ENCOUNTER 2025-01-09 07:04 | Day surgery (SDC) | payer MEDICARE, SELFPAY ==
--- OUTSIDE RECORDS SUMMARY | 2020-04-11 07:00 | XMS_ITS | Continuity of Care Document ---
Author Organization [facility] Address [address] [place] [address] [place] [address] Phone Care Team Providers Care Pizza Delivery Driver Name Role Phone Kayce Chanel CNP Unavailable [...] Copied on Encounter OFFICE/OUTPAT IENT VISIT, EST [facility], [address] [place] [address], [id number], [place] tel:[phone] [facility] No Information Darío Devries. [address] [place] [address], [id number], [place]. tel:[phone] Referring Provider: Kayce Chanel, [address] [place] [address] [address], [place], [address] . tel:[phone] [facility], [address] [place] [address] [address], [place], [place], [id number], [place] tel:[phone] [facility] No Information Darío Devries. [address], [place], [place], [address], [place]. tel:[phone] Referring Provider: Kayce Chanel, [address] [place] [address] [address], [place], [address] . tel:[phone] [facility], [address] [place] [address] [address], [place], [place], [address], [place] tel:[phone] [facility] No Information Darío Devries. [facility] [address] [facility] [address], [place], [place], [address], [place]. tel:[phone] Referring Provider: Kayce Chanel, [address] [place] [address] [address], [place], [address] . tel:[phone] [facility], [address] [place] [address] [address], [place], [place], [address], [place] tel:[phone] [facility] No Information Darío Devries. [facility] [address] [facility] [address], [place], [place], [address], [place]. tel:[phone] Referring Provider: Kayce Chanel, [facility] [address], [place], [address] . tel:[phone] [facility], [address] [place] [address] [address], [place], [address], [place] tel:[phone] [facility] No Information Darío Devries. [address] [place] [address] [address], [facility] [place], [id number], [place]. tel:[phone] Referring Provider: Kayce Chanel, [address] [place] [address] [address], [place], [address] . tel:[phone] [facility], [address] [place] [address] [address], [place], [place], [address], [place] tel:[phone] [facility] No Information Yulia Anguiano. [address] [facility] [address], [place], [place], [address], [place]. tel:[phone] Referring Provider: Silvio Acevedo, [address] [facility] [address], [place], [address] . tel:[phone] OFFICE/OUTPAT IENT VISIT, [facility], [address] [place] [address] [address], [place], [place], [address], [place] tel:[phone] [facility] No Information Yulia Anguiano. [address] [facility] [address], [place], [place], [address], [place]. tel:[phone] Referring Provider: Silvio Acevedo, [address] [facility] [address], [place], [address] . tel:[phone] [facility], [address] [place] [address] [address], [place], [place], [address], [place] tel:[phone] [facility] No Information No Information OFFICE/OUTPAT IENT VISIT, [facility], [address] [place] [address] [address], [place], [place], [address], [place] tel:[phone] [facility] No Information Yulia Anugiano. [address] [facility] [address], [place], [place], [address], [place]. tel:[phone] Referring Provider: Silvio Acevedo, [address] [facility] [address], [place], [address] . tel:[phone] OFFICE/OUTPAT IENT VISIT, [facility], [address] [place] [address] [address], [place], [place], [address], [place] tel:[phone] [facility] No Information Yulia Anguiano. [address] [facility] [address], [place], [place], [address], [place]. tel:[phone] Referring Provider: Silvio Acevedo, [address] [facility] [address], [place], [address] . tel:[phone] OFFICE/OUTPAT IENT VISIT, [facility], [address] [facility] [address], [place], [place], [address], [place] tel:[phone] [facility] No Information Yulia Anguiano. [address] [place] [address] [address], [place], [place], [address], [place]. tel:[phone] Referring Provider: Silvio Acevedo, [address] [place] [address] [address], [place], [address] . tel:[phone] Family History Family Member Type Diagnosis Age At Onset No Information Payers Payer name Insurance type Covered constitution party ID Authorgerard thakur(s) [facility] Medicare [employer] [id number] Social History Type Description Quantity Date Captured [...]
--- OUTSIDE RECORDS SUMMARY | 2024-12-26 10:00 | XMS_ITS | Encounter Summary ---
Author Organization [facility] Healthcare Address [address] [place] [address] Care Team Providers Care Electrician Supervisor Name Role Phone Miriam Suarez DO Unavailable [phone] Adelaida Carrion NP Unavailable [phone] José Luis Roberts MD Primary Care Provider [phone] Juany Leggett Unavailable Reason for Visit * Reason Comments Post-op Scope DAP 12/15/24 TS CNCO Encounter Details Date Type Department Care Team (Late st Contact Info) Description 12/26/2024 10:00 AM EDT Office Visit [facility] [address] [facility] [address] [place] [address] Moses Stone PA [address] [place] [address] Status post arthroscopic surgery of right knee (Primary Dx) Social History Tobacco Use Types Packs/Day Years [...] How often do you attend religious or uatsdin serv ices? Never 08/16/2023 Do [...] Recorded Patient Health Questionnaire-2 Score 2 09/21/2023 [facility] of Occupat ional Health - Occupational Stress [...] - Inhaled Oxygen Concentration - - Weight 126 kg (277 lb) 12/26/2024 9:40 AM EDT Height 162.6 cm (5' 4 ) 12/26/2024 9:40 AM EDT Body Mass Index 47.55 12/26/2024 9:40 AM EDT documented in this encounter Patient Instructions * Patient Instructions* MAUREEN Dailey - 12/26/2024 10:00 AM EDT Continue home exercise program working on quad strengthening. Use cold pack for 20 minutes several times a day and before bedtime. Call if you wish to pursue any organized physical therapy. Finish out your aspirin for prevention of DVT and may return to Tylenol for general discomfort of the knee. Cortisone may be an option if swelling persist after the next 6-8 weeks of healing from the surgery. documented in this encounter Progress Notes * MAUREEN Dailey - 12/26/2024 10:00 AM EDT Images from the original note were not included. Subjective Patient ID: Nasim Ingram is a 64 y.o. female. Chief Complaint: Post-op of the Right Knee (Scope DAP 12/15/24 TSCNCO) Last Surgery: No surgery found Last Surgery Date: No surgery found HPI Nasim comes in with her she is doing fairly well she is taking the aspirin as prescribed she states she is unable to take ibuprofen type medication due to prior gastric bypass but really has slowed down and stopped taking the stronger narcotic medication. She is doing her own home exercisesas given postoperatively. She had some bruising associated from her tourniquet but overall has somemedial portal bruising which is somewhat sore but no evidence of infection. Objective Ortho Exam Patient has some patellofemoral crepitus with extension from 20-0. She is able to flex to about 105 associated with joint swelling there is no erythema or evidence of infection. She has no prepatellar swelling redness or rash she does have some bruising around the medial portal but no evidence of infection or drainage. She has some ecchymosis from the tourniquet associated with the lateral posterior thigh extending down laterally into the posterior lateral knee. Mediolateral collateral ligaments are stable. Image Results: Postop arthroscopy photos were reviewed she does have significant patellofemoral disease particularly trochlear chondral loss. She also has medial and lateral femoral condyle cartilage injury with resected medial and lateral meniscus. Assessment/Plan Encounter Diagnoses: Status post arthroscopic surgery of right knee No orders of the defined types were placed in this encounter. Follow up if symptoms worsen or fail to improve. Continue home exercise program working on quad strengthening. Use cold pack for 20 minutes several times a day and before bedtime. Call if you wish to pursue any organized physical therapy. Finish out your aspirin for prevention of DVT and may return to Tylenol for general discomfort of the knee. Cortisone may be an option if swelling persist after the next 6-8 weeks of healing from the surgery. documented in this encounter Plan of Treatment Not on file documented as of this encounter Visit Diagnoses Diagnosis Status post arthroscopic surgery of right knee- Primary Other postprocedural status documented in this encounter Additional Health Concerns Assessment Noted Time PHQ-9 Depression Total Score: 8 05/18/19 24 5:00 PM EST documented as of this encounter Care Teams Electrician Supervisor Relationship Specialty Start Date End Date José Luis Roberts MD [address] [place] [address] PCP - General Family Medicine 02/02/24 Miriam Suarez DO [address] [place] [address] Referring Physician Neurology 06/29/23 Adelaida Carrion NP [address] [place] [address] Nurse Practitioner Family Medicine 01/27/24 Juany Leggett PA [address] [place] [address] Physician Corporate Human Resources Manager Neurology 07/26/24 documented as of this encounter
--- OUTSIDE RECORDS SUMMARY | 2025-01-09 07:06 | XMS_ITS | Clinical Summary ---
Author Organization [facility] Address [address], [address] [place] [address] Care Team Providers Care Brim Stretching Machine Operator Name Role Phone Adelaida Carrion APRN - [...] mouth daily Active Multiple Vitamins-Minera ls (THERAPEUTIC MULTIVITAMIN-DC NERALS) tablet Take 1 tablet by mouth [...] = 0.6 oz pur e alcohol) Rarely [facility] Utilities Answer Date Recorded In [...] slept in a retirement (including now)? No 08/24/2023 Food Insecurity Answer [...] Shingles vaccine (2 of 2) 10/12/2023 08/17/2023 Annual Wellness Visit (Medicare Advantage) 04/06/2024 Flu vaccine (#1) 11/04/2024 02/13/2023, 05/28/2018 COVID-19 Vaccine (5 - 2024- season) 2024 02/13/2023, 03/02/2021, 08/24/2020, Additional history exists GFR test (Diabetes, CKD 3-4, OR last [...] - 145 mmol/L 01/20/2024 11:15 PM EDT [facility] Potassium 4.6 3.7 - 5.3 mmol/L 01/20/2024 11:15 PM EDT [facility] Comment: Specimen hemolysis has exceeded the interference as defined by Paul. Value may be falsely increased. Suggest recollection if clinically indicated. Chloride 106 98 - 107 mmol/L 01/20/2024 11:15 PM EDT [facility] CO2 24 20 - 31 mmol/L 01/20/2024 11:15 PM T [facility] Anion Gap 10 9 - 16 mmol/L 01/20/2024 11:15 PM EDT [facility] Glucose 97 74 - 99 mg/dL 01/20/2024 11:15 PM EDT [facility] BUN 17 8 - 23 mg/dL 01/20/2024 11:15 PM EDT [facility] Creatinine 1.2(H) 0.50 - 0.90 mg/dL 01/20/2024 11:15 PM T [facility] Est, Glom Filt Rate 54(L) >60 mL/min/1.7 3m2 01/20/2024 11:15 PM EDT [facility] Comment: These results are not [...] 9 - 20 01/20/2024 11:15 PM EDT [facility] Calcium 8.8 8.6 - 10.4 mg/dL 01/20/2024 11:15 PM T [facility] Total Protein 6.5(L) 6.6 - 8.7 g/dL 01/20/2024 11:15 PM EDT [facility] Albumin 3.9 3.5 - 5.2 g/dL 01/20/2024 11:15 PM T [facility] Albumin/Globulin Ratio 1.5 1.0 - 2.5 01/20/2024 11:15 PM EDT [facility] Total Bilirubin 0.2 0.00 - 1.20 mg/dL 01/20/2024 11:15 PM EDT [facility] Alkaline Phosphatase 86 35 - 104 U/L 01/20/2024 11:15 PM EDT [facility] ALT 20 10 - 35 U/L 01/20/2024 11:15 PM EDT [facility] AST 27 10 - 35 U/L 01/20/2024 11:15 PM EDT [facility] Blood BLOOD SPECIMEN / Unknown 01/20/2024 11:15 PM EDT 01/21/2024 12:31 AM EDT us Rochelle Lopes MD CHEMISTRY ORDERABLES Final Resul t [facility] [address] [place] [address], [facility] [phone] from Last 3 Months or Most Recently Relevant to Health Maintenance Insurance Advance Directives Documents on File Type Date Recorded Patient Transport Manager Expl anation ACP-Advance Directive 09/04/2023 1:02 PM * Full Code (Latest Code Status on File) Date Activated Date Inactivated Comments 08/24/2023 3:10 PM 09/03/2023 6:08 PM Care Teams Brim Stretching Machine Operator Relationship Specialty Start Date End Date Adelaida Carrion, LEATHER GRAINER - ELECTRIC MOTOR WINDERS ASSEMBLER [address] [place] [address] PCP - General Nurse Practitioner 01/04/18
--- OUTSIDE RECORDS SUMMARY | 2025-01-09 07:06 | XMS_ITS | Encounter Summary ---
Author Organization [facility] Address [address] [place] [address] Care Team Providers Care Fabric Worker Fitter Name Role Phone Adelaida Carrion NP Unavailable [phone] José Luis Roberts MD Primary Care Provider [phone] Miriam Suarez DO Unavailable [phone] Mathew Parra INTERNAL COMBUSTION ENGINE SUBASSEMBLER Unavailable Unavailable Diana De Leon LPN Unavailable Unallocated, Noms Provider Primary Care Provi kellee Adelaida Carrion NP Unavailable [phone] José Luis Roberts MD Primary Care Provider [phone] Bong Rosado MA Unavailable [phone] Juany Leggett Unavailable Encounter Details Date Type Department Care Team (Late st Contact Info) Description 10/27/2023 Abstract [facility] [address] [facility] [address] [place] [address] Unallocated, Noms Provider, [address] [place] [address] Social History Tobacco Use Types Packs/Day Years [...] How often do you attend quaker or samaritan serv ices? Never 08/16/2023 Do you belong [...] Score 2 09/21/2023 [facility] of Occupat ional Health - Occupational Stress [...] as of this encounter Plan of Treatment Not on file documented as of this encounter Visit Diagnoses Not on filedocumented in this encounter Additional Health Concerns Assessment Noted Time PHQ-9 Depression Total Score: 8 05/18/19 24 5:00 PM EST documented as of this encounter Care Teams Fabric Worker Fitter Relationship Specialty Start Date End Date José Luis Roberts MD PCP - General Family Medicine 05/18/23 01/26/24 Unallocated, Johan Sierra MD [address] [place] [address] PCP - General Family Medicine 01/27/24 02/01/24 José Luis Roberts MD PCP - General Family Medicine 02/02/24 Adelaida Carrion NP Referring Physician Nurse Practitioner 10/14/22 Miriam Suarez DO [address] [place] [address] Referring Physician Neurology 06/29/23 Mathew Parra LPN Licensed Practical Nurse Family Medicine 07/23/23 Diana De Leon LPN [address] [facility] [address] [place] [address] Licensed Practical Nurse Family Medicine 12/18/2302/11 Adelaida Carrion NP [address] [place] [address] Nurse Practitioner Family Medicine 01/27/24 Bong Rosado, [place] [address] [place] [address] Family Medicine 02/12/24 11/29/24 Juany Leggett PA [address] [facility] [address] [place] [address] Physician Air Filler Neurology 07/26/24 documented as of this encounter
--- OUTSIDE RECORDS SUMMARY | 2025-01-09 07:06 | XMS_ITS | Encounter Summary ---
Author Organization [facility] Address [address] [place] [address] Care Team Providers Care Manager Inpatient Name Role Phone Adelaida Carrion NP Unavailable [phone] José Luis Roberts MD Primary Care Provider Miriam Suarez DO Unavailable [phone] Mathew Parra CRISIS INTERVENTION COUNSELOR Unavailable Unavailable Diana De Leon CRISIS INTERVENTION COUNSELOR Unavailable Unallocated, Noms Provider Primary Care Provi kellee Adelaida Carrion NP Unavailable [phone] José Luis Roberts MD Primary Care Provider [phone] Bong Rosado MA Unavailable [phone] Juany Leggett Unavailable Encounter Details Date Type Department Care Team (Late st Contact Info) Description 09/21/2023 Orders Only [facility] [address] [place] [address] Adelaida Carrion NP [address] [place] [address] Social History Tobacco Use Types [...] How often do you attend baptism or bahai serv ices? Never 08/16/2023 Do [...] 09/21/2023 [facility] of Occupat ional Health - Occupational [...] things Several days 09/21/2023 10:31 AM EDT Spring Weller MA Feeling down, depressed, or hopeless Several days 09/21/2023 10:31 AM EDT Chuck Weller MA Patient Health Questionnaire-2 Score 2 09/21/2023 10:31 AM EDT Ceci Weller MA * If you checked off any problems on this questionnaire so far, Question Answer Date of Assessment Author How difficult have these problems made it for you to do your work, take care of things at home, or get along with other people? Not difficult at all 09/21/2023 10:31 AM EDT Francisca Weller MA documented as of this encounter Plan of Treatment Not on file documented as of this encounter Procedures Procedure Name Priority Date/Time Associated Diagnosis Comments MM SCREENING MAMM WITH 3D JOSEF - US AND ADDITIONAL Routine 09/18/2023 8:06 AM EDT documented in this encounter Results * MM SCREENING MAMM WITH 3D JOSEF - US AND ADDITIONAL (09/18/2023 8:06 AM EDT) Anatomical Region Laterality Modality Radiographic Nelda ging us Adelaida Carrion STATION OPERATOR IMG XR PROCEDURES Final Result documented in this encounter Visit Diagnoses Not on filedocumented in this encounter Additional Health Concerns Assessment Noted Time PHQ-9 Depression Total Score: 8 05/18/19 24 5:00 PM EST documented as of this encounter Care Teams Manager Inpatient Relationship Specialty Start Date End Date José Luis Roberts MD PCP - General Family Medicine 05/18/23 01/26/24 Unallocated, Johan Sierra MD [address] [facility] [place] [address] PCP - General Family Medicine 01/27/24 02/01/24 José Luis Roberts MD PCP - General Family Medicine 02/02/24 Adelaida Carrion NP Referring Physician Nurse Practitioner 10/14/22 Miriam Suarez DO [address] [place] [address] Referring Physician Neurology 06/29/23 Mathew Parra LPN Licensed Practical Nurse Family Medicine 07/23/23 Diana De Leon LPN [address] [place] [address] Licensed Practical Nurse Family Medicine 12/18/2302/11 Adelaida Carrion NP [address] [place] [address] Nurse Practitioner Family Medicine 01/27/24 Bong Rosado, [place] [address] [place] [address] Family Medicine 02/12/24 11/29/24 Juany Leggett PA [address] [place] [address] Physician Oven Roaster Neurology 07/26/24 documented as of this encounter
--- OUTSIDE RECORDS SUMMARY | 2025-01-09 07:06 | XMS_ITS | Encounter Summary ---
Author Organization [facility] Address [address] [place] [address] Care Team Providers Care Exercise Scientist Name Role Phone Adelaida Carrion NP Unavailable [phone] José Luis Roberts MD Primary Care Provider [phone] Miriam Suarez DO Unavailable [phone] Mathew Parra FRAME STRIPPER AND CRUSHER Unavailable Unavailable Diana De Leon LPN Unavailable Unallocated, Noms Provider Primary Care Provi kellee Adelaida Carrion NP Unavailable [phone] José Luis Roberts MD Primary Care Provider [phone] Bong Rosado MA Unavailable [phone] Juany Leggett Unavailable Encounter Details Date Type Department Care Team (Late st Contact Info) Description 09/18/2023 Clinisync Result Encounter [facility] External Department Unsolicited Adelaida Carrion NP [address] [place] [address] Social History Tobacco Use Types Packs/Day Years [...] How often do you attend yarsani or mandaeism serv ices? Never 08/16/2023 Do [...] EDT Narrative 09/18/2023 1:43 [place] [address] Mammography Report Signed Patient: NASIM INGRAM MR#: [id number] : 1960 Acct:[id number] Age/Sex: 62 / F ADM Date: 09/18/23 Loc: MAMMO Attending Dr: Adelaida Carrion NP Ordering Physician: Adelaida Carrion NP Results: Date of Service: 09/18/23 Follow Up: Procedure(s): MM tomosynthesis screening BI Accession Number(s): [id number] cc: Adelaida Carrion NP Patient Name: NASIM INGRAM MR#: [id number] : 1960 Exam Date: 09/18/2023 Ordering Doctor: LIVIER Carrion LOAD DROPPER RADIOLOGY REPORT PROCEDURE: MM TOMOSYNTHESIS SCREENING BI COMPARISON: MM TOMOSYNTHESIS SCREENING BI, 09/15/2022. MG MAMM SCREEN 3D BHUMI CAD, 06/20/2021. INDICATIONS: Screening Calculator Name NCI Breast Cancer Risk Assessment Tool 5 Year Breast Cancer Risk 2.20% Lifetime Breast Cancer Risk 10.30% Personal Breast Cancer No Personal Ovarian Cancer No Treatments None Family Cancers None LOCATION: [facility] BREAST COMPOSITION: There are scattered areas [...] Signed By: 09/18/23 1343 DD/ 1342 TD/TT: Restaurant Management Internship: Procedure Note Radiology, Radiologist, - 09/18/2023 [place] [address] Mammography Report Signed Patient: NASIM INGRAM LMR#: [id number] : 1960cct:[id number] Age/Sex: 62 / FADM Date: 09/18/23 Loc: MAMMO Attending Dr: Adelaida Carrion NP Ordering Physician: Adelaida Carrion NPResults: Date of Service: 09/18/23Follow Up: Procedure(s): MM tomosynthesis screening BI Accession Number(s): [id number] cc: Adelaida Carrion NP Patient Name: NASIM INGRAM MR#: [id number] : 1960 Exam Date: 09/18/2023 Ordering Doctor: LIVIER Carrion CNP RADIOLOGY REPORT PROCEDURE: MM TOMOSYNTHESIS SCREENING BI COMPARISON: MM TOMOSYNTHESIS SCREENING BI, 09/15/2022. MG MAMM [id number] BHUMI CAD, 06/20/2021. INDICATIONS: Screening Calculator Name NCI Breast Cancer Risk Assessment Tool 5 Year Breast Cancer Risk 2.20% Lifetime Breast Cancer Risk 10.30% Personal Breast Cancer No Personal Ovarian Cancer No Treatments None Family Cancers None LOCATION: [facility] BREAST COMPOSITION: There are scattered areas [...] M.D. Signed By:09/18/23 1343 DD/ 1342 TD/TT: Restaurant Management Internship: Adelaida Carrion NP [facility] Final Result documented in this encounter Visit Diagnoses Not on filedocumented in this encounter Additional Health Concerns Assessment Noted Time PHQ-9 Depression Total Score: 8 05/18/19 24 5:00 PM EST documented as of this encounter Care Teams Exercise Scientist Relationship Specialty Start Date End Date José Luis oRberts MD PCP - General Family Medicine 05/18/23 01/26/24 Unallocated, Johan Sierra MD [address] [place] [address] PCP - General Family Medicine 01/27/24 02/01/24 José Luis Roberts MD PCP - General Family Medicine 02/02/24 Adelaida Carrion NP Referring Physician Nurse Practitioner 10/14/22 Miriam Saurez DO [address] [place], [place] [address] Referring Physician Neurology 06/29/23 Mathew Parra LPN Licensed Practical Nurse Family Medicine 07/23/23 Diana De Leon LPN [address] [place] [address] Licensed Practical Nurse Family Medicine 12/18/2302/11 Adelaida Carrion NP [address] [place] [address] Nurse Practitioner Family Medicine 01/27/24 Bong Rosado, [place] [address] [place] [address] Family Medicine 02/12/24 11/29/24 Juany Leggett PA [address] [place] [address] Physician Commercial Loan Officer Neurology 07/26/24 documented as of this encounter
--- OUTSIDE RECORDS SUMMARY | 2025-01-09 07:06 | XMS_ITS | Encounter Summary ---
Author Organization [facility] Address [address] [place] [address] Care Team Providers Care Ssas Developer Name Role Phone Adelaida Carrion NP Unavailable [phone] José Luis Roberts MD Primary Care Provider [phone] Miriam Suarez DO Unavailable [phone] Mathew Parra AVIATION ELECTRICIAN Unavailable Unavailable Diana De Leon LPN Unavailable Unallocated, Noms Provider Primary Care Provi kellee Adelaida Carrion NP Unavailable [phone] José Luis Roberts MD Primary Care Provider [phone] Bong Rosado MA Unavailable [phone] Juany Leggett Unavailable Encounter Details Date Type Department Care Team (Late st Contact Info) Description 09/02/2023 Orders Only [facility] [address] [place] [address] Shaikh Alberto MD [address] [place] [address] Social History Tobacco Use Types [...] often do you attend roman catholic or sabianism serv ices? Never 08/16/2023 Do you belong [...] documented as of this encounter Care Teams Ssas Developer Relationship Specialty Start Date End Date José Luis Roberts MD PCP - General Family Medicine 05/18/23 01/26/24 Unallocated, Noms ProviderMD [address] [place] [address] PCP - General Family Medicine 01/27/24 02/01/24 José Luis Roberts MD PCP - General Family Medicine 02/02/24 Adelaida Carrion NP Referring Physician Nurse Practitioner 10/14/22 Miriam Suarez DO [address] [place] [address] Referring Physician Neurology 06/29/23 Mathew Parra LPN Licensed Practical Nurse Family Medicine 07/23/23 Diana De Leon LPN [address] [place] [address] Licensed Practical Nurse Family Medicine 12/18/2302/11 Adelaida Carrion NP [address] [place] [address] Nurse Practitioner Family Medicine 01/27/24 Bong Rosado MA [address] [place] [address] Family Medicine 02/12/24 11/29/24 Juayn Leggett PA [address] [place] [address] Physician Call Center Team Leader Neurology 07/26/24 documented as of this encounter
--- OUTSIDE RECORDS SUMMARY | 2025-01-09 07:06 | XMS_ITS | Encounter Summary ---
Author Organization [facility] Address [address] [place] [address] Care Team Providers Care Pay Clerk Name Role Phone DanielaSaurav baezakayleen GRAHAM Unavailable [phone] Adelaida Carrion NP Unavailable [phone] José Luis Roberts MD Primary Care Provider Bong Rosado MA Unavailable [phone] Juany Leggett Unavailable Encounter Details Date Type Department Care Team (Late st Contact Info) Description 03/02/2024 Orders Only [facility] [address] [place] [address] Adelaida Carrion, MANAGER [place] [address] [place] [address] Social History Tobacco Use Types Packs/Day Years [...] How often do you attend religious or anabaptism serv ices? Never 08/16/2023 Do [...] Patient Health Questionnaire-2 Score 2 09/21/2023 [facility] [place] of Occupat ional Health - Occupational Stress [...] LABS (03/02/2024 7:33 AM EST) Adelaida Carrion MANAGER [facility] CHG PERFORMABLES Final Resu lt documented in this encounter Visit Diagnoses Not on filedocumented in this encounter Additional Health Concerns Assessment Noted Time PHQ-9 Depression Total Score: 8 05/18/19 24 5:00 PM EST documented as of this encounter Care Teams Pay Clerk Relationship Specialty Start Date End Date José Luis Roberts MD [address] [place] [address] PCP - General Family Medicine 02/02/24 Miriam Suarez DO [address] [place] [address] Referring Physician Neurology 06/29/23 Adelaida Carrion NP [address] [place] [address] Nurse Practitioner Family Medicine 01/27/24 Bong Rosado MA [address] [place] [address] Family Medicine 02/12/24 11/29/24 Juany Leggett PA [address] [place] [address] Physician Mold Stripper Neurology 07/26/24 documented as of this encounter
--- OUTSIDE RECORDS SUMMARY | 2025-01-09 07:06 | XMS_ITS | Encounter Summary ---
Author Organization [facility] Address [address] [place] [address] Care Team Providers Care Back Stayer Name Role Phone Miriam Suarez Unavailable [phone] Adelaida Carrion NP Unavailable [phone] José Luis Roberts MD Primary Care Provider Bong Rosado MA Unavailable [phone] Juany Leggett Unavailable Encounter Details Date Type Department Care Team (Late st Contact Info) Description 09/29/2024 Abstract [facility] [address] [place] [address] Adelaida Carrion, BRIANA [address] [place] [address] Social History Tobacco Use Types Packs/Day Years [...] How often do you attend gnosticist or yazidi serv ices? Never 08/16/2023 Do [...] Recorded Patient Health Questionnaire-2 Score 2 09/21/2023 [facility] [place] of Occupat ional Health - Occupational Stress [...] documented as of this encounter Care Teams Back Stayer Relationship Specialty Start Date End Date José Luis Roberts MD [address] [place] [address] PCP - General Family Medicine 02/02/24 Miriam Suarez DO [address] [place] [address] Referring Physician Neurology 06/29/23 Adelaida Carrion NP [address] [place] [address] Nurse Practitioner Family Medicine 01/27/24 Bong Rosado MA [address] [place] [address] Family Medicine 02/12/24 11/29/24 Juany Leggett PA [address] [place] [address] Physician Online Journalist Neurology 07/26/24 documented as of this encounter
--- OUTSIDE RECORDS SUMMARY | 2025-01-09 07:06 | XMS_ITS | Encounter Summary ---
Author Organization [facility] Address [address] [place] [address] Care Team Providers Care Field Professional Name Role Phone Miriam Suarez DO Unavailable [phone] Adelaida Carrion NP Unavailable [phone] José Luis Roberts MD Primary Care Provider Bong Rosado MA Unavailable [phone] Juany Leggett Unavailable Reason for Visit * Reason Onset Date Comments Med Refill 04/12/2024 Encounter Details Date Type Department Care Team (Late st Contact Info) Description 04/12/2024 Refill [facility] [address] [place] [address] José Luis Roberts MD [address] [place] [address] Social History Tobacco Use Types [...] How often do you attend jewish or scientologist serv ices? Never 08/16/2023 Do [...] Recorded Patient Health Questionnaire-2 Score 2 09/21/2023 [facility] [place] of Occupat ional Health - Occupational Stress [...] Notes * Telephone Encounter - Adelaida Carrion, LOAN SERVICING SPECIALIST - 04/12/2024 11:52 AM EST Contact pt, [...] documented as of this encounter Care Teams Field Professional Relationship Specialty Start Date End Date José Luis Roberts MD [address] [place] [address] PCP - General Family Medicine 02/02/24 Miriam Suarez DO [address] [place] [address] Referring Physician Neurology 06/29/23 Adelaida Carrion NP [address] [place] [address] Nurse Practitioner Family Medicine 01/27/24 Bong Rosado MA [address] [place] [address] Family Medicine 02/12/24 11/29/24 Juany Leggett PA [address] [place] [address] Physician Director Public Neurology 07/26/24 documented as of this encounter
--- OUTSIDE RECORDS SUMMARY | 2025-01-09 07:06 | XMS_ITS | Encounter Summary ---
Author Organization [facility] Address [address] [place] [address] Care Team Providers Care Display Manager Name Role Phone Saurav Suarezkayleen GRAHAM Unavailable [phone] Adelaida Carrion NP Unavailable [phone] José Luis Roberts MD Primary Care Provider Bong Rosado MA Unavailable [phone] Juany Leggett Unavailable Encounter Details Date Type Department Care Team (Late st Contact Info) Description 03/21/2024 Orders Only [facility] [address] [place] [address] Adelaida Carrion, CATERING ASSOCIATE [address] [place] [address] Social History Tobacco Use Types Packs/Day Years [...] How often do you attend uatsdin or anabaptism serv ices? Never 08/16/2023 Do [...] Recorded Patient Health Questionnaire-2 Score 2 09/21/2023 [facility] [place] of Occupat ional Health - Occupational Stress [...] * SCANNED LABS (03/21/2024 2:30 PM EST) Result [facility] LAB CHG PERFORMABLES Final Res ult * SCANNED LABS (03/21/2024 2:21 PM EST) Adelaida Carrion NP LAB CHG PERFORMABLES Final Resu lt * ECG 12 lead (03/21/2024 2:19 PM EST) Result [facility] ECG ORDERABLES Final Result * ECG 12 lead (03/21/2024 2:15 PM EST) Result [facility] ECG ORDERABLES Final Result * ECG 12 lead (03/21/2024 2:10 PM EST) Result [facility] Clayton Galvan MD ECG ORDERABLES Final Result * ECG 12 lead (03/21/2024 2:07 PM EST) Rochelle Keene MD ECG ORDERABLES Final Result * Complete echocardiogram dobutamine stress test (03/21/2024 2:03 PM EST) Anatomical Region Laterality Modality Ultrasound Result [facility] Adelaida Carrion NP CV ECHO PROCEDURES Final Result documented in this encounter Visit Diagnoses Not on filedocumented in this encounter Additional Health Concerns Assessment Noted Time PHQ-9 Depression Total Score: 8 05/18/19 24 5:00 PM EST documented as of this encounter Care Teams Display Manager Relationship Specialty Start Date End Date José Luis Roberts MD [address] [place] [address] PCP - General Family Medicine 02/02/24 Miriam Suarez DO [address] [place], [place] [address] Referring Physician Neurology 06/29/23 Adelaida Carrion NP [address] [place] [address] Nurse Practitioner Family Medicine 01/27/24 Bong Rosado MA [address] [place] [address] Family Medicine 02/12/24 11/29/24 Juany Leggett PA [address] [place] [address] Physician Electrician Deck Neurology 07/26/24 documented as of this encounter
--- OUTSIDE RECORDS SUMMARY | 2025-01-09 07:06 | XMS_ITS | Encounter Summary ---
Author Organization [facility] Address [address] [place] [address] Care Team Providers Care Distribution Designer Name Role Phone Miriam Suarez DO Unavailable [phone] Adelaida Carrion NP Unavailable [phone] José Luis Roberts MD Primary Care Provider Bong Rosado MA Unavailable [phone] Juany Leggett Unavailable Reason for Visit * Reason Onset Date Comments Med Refill 07/08/2024 Encounter Details Date Type Department Care Team (Late st Contact Info) Description 07/08/2024 Refill [facility] [address] [place] [address] José Luis Roberts MD [address] [place] [address] Social History Tobacco Use Types [...] How often do you attend temple or advent serv ices? Never 08/16/2023 Do [...] Recorded Patient Health Questionnaire-2 Score 2 09/21/2023 [facility] [place] of Occupat ional Health - Occupational Stress [...] encounter Miscellaneous Notes * Telephone Encounter - Spring Weller MA - 07/19/2024 9:59 AM EDT Text Residential Assistant Hi, this is Nasim Ingram. My date of versus [phone] was calling about the dilkon that I requested to be called in yesterday. There is nothing at drug more yet. Thank you. * Telephone Encounter - Spring Weller MA - 07/18/2024 10:57 AM EDT Text Residential Assistant Adelaida Fraser, this is Nasim Ingram. Surendra [phone] need to have you call in a prescription for [place] to the pharmacy at [facility], Dr. Ricci, other yeast infection, thank you. [...] documented as of this encounter Care Teams Distribution Designer Relationship Specialty Start Date End Date José Luis Roberts MD [address] [place] [address] PCP - General Family Medicine 02/02/24 Miriam Suarez DO [address] [place] [address] Referring Physician Neurology 06/29/23 Adelaida Carrion NP [address] [place] [address] Nurse Practitioner Family Medicine 01/27/24 Bong Rosado MA [address] [place] [address] Family Medicine 02/12/24 11/29/24 Juany Leggett PA [address] [facility] [address] [place] [address] Physician Carrier Associate Neurology 07/26/24 documented as of this encounter
--- OUTSIDE RECORDS SUMMARY | 2025-01-09 07:07 | XMS_ITS | Clinical Summary ---
Author Organization [facility] Address [address] [place] [address] Care Team Providers Care Public Relations Supervisor Name Role Phone Miriam Suarez DO Unavailable [phone] Adelaida Carrion TOP LIFT SCOURER Unavailable [phone] José Luis Roberts MD Primary Care Provider [phone] Juany Leggett Unavailable Allergies Active Allergy Reactions Criticality Noted Date Comments Eszopiclone Hallucinations,Anaph ylaxis High 09/21/2023 Altered mental status and non responsive Levetiracetam Hallucinations,Other Medium 12/12/2021 Milnacipran Hallucinations,Other ,Unknown Medium 12/12/2021 Other Other 12/12/2021 Penicillins Anaphylaxis High 12/12/2021 Prochlorperazine Unknown,Other Medium 12/12/2021 Tetracycline Hives,Unknown High 12/12/2021 Wound Dressing Adhesive Rash,Unknown Medium 09/19/2022 Medications Multiple Vitamins-Minerals (BARIATRIC MULTIVITAMINS/IRON PO) Pt taking OTC (Quelle Energie) Active biotin 5 MG tablet Pt taking OTC (Quelle Energie) Active Calcium Citrate-Vitamin D (CITRACAL + D PO) Pt taking OTC (Micromidas) Active Magnesium 400 MG capsule Pt taking OTC(Aardvark) Active traZODone (Desyrel) 150 MG tablet Take 150 mg by mouth at bedtime Active DULoxetine (Cymbalta) [address] capsule Take 60 mg by mouth in the morning and 60 mg before bedtime. Do not crush or chew. Active Melatonin 12 MG tabletIndications: from amazon Take 1 tablet by mouth at bedtime Active tiZANidine (Zanaflex) 4 MG tablet Take 4 mg by mouth every 8 (eight) hours if needed for muscle spasms 1-2 tablets 12/12/19 24 Active gabapentin (Neurontin) 300 MG capsuleIndications :Restless leg Take 1 capsule (300 mg) by mouth in the morning and 1 capsule (300 mg) before bedtime. Due now. 180 capsule 1 07/13/19 25 Active rOPINIRole (Requip) 3 MG tabletIndications: Restless Leg Syndrome Take 1 tablet (3 mg) by mouth at bedtime 90 tablet 2 07/27/19 25 Active Cariprazine HCl (Vraylar) 4.5 MG capsule Take 4.5 mg by mouth Daily 09/01/19 25 Active amLODIPine (Norvasc) 10 MG tabletIndications: Essential (primary) hypertension Take 1 tablet (10 mg) by mouth Daily 30 tablet 10/14/19 25 Active carvedilol (Coreg) 12.5 MG tabletIndications: Essential (primary) hypertension Take 1 tablet (12.5 mg) by mouth in the morning and 1 tablet (12.5 mg) in the evening. Take with meals. 60 tablet 10/14/19 25 Active fexofenadine (Naida) 180 MG tabletIndications: Allergic rhinitis, unspecified seasonality, unspecified trigger Take 1 tablet (180 mg) by mouth Daily 30 tablet 10/14/19 25 Active fluticasone (Flonase) 50 MCG/ACT nasal sprayIndications:A llergic rhinitis, unspecified Administer 2 sprays into each nostril Daily 16 g 10/14/19 25 Active losartan (Cozaar) 100 MG tabletIndications: Essential (primary) hypertension Take 1 tablet (100 mg) by mouth Daily 30 tablet 10/14/19 25 Active omeprazole (PriLOSEC) [address] capsuleIndications :Gastro-esophageal reflux disease without esophagitis Take 1 capsule (20 mg) by mouth in the morning. Take before meals. 30 capsule 10/14/19 25 Active spironolactone (Aldactone) 50 MG tabletIndications: Bilateral lower extremity edema Take 1 tablet (50 mg) by mouth Daily 30 tablet 10/14/19 25 Active Iron-Vitamin C (IRON 100/C PO) Take by mouth Active Cannabinoids (medical cannabis) Take 1 each by mouth Active diazePAM (Valium) 10 MG tabletIndications: Claustrophobia 1 tab orally 30-60 mins before procedure as need for anxiety, claustrophobia . 1 tablet 11/01/19 25 Active aspirin 325 MG EC tabletIndications: Primary osteoarthritis of right knee Take 1 tablet (325 mg) by mouth Daily for 21 days 21 tablet 12/15/19 25 025 docusate sodium (Colace) 100 MG capsuleIndications :Primary osteoarthritis of right knee Take 1 capsule (100 mg) by mouth in the morning and 1 capsule (100 mg) before bedtime. Do all this for 20 days. 40 capsule 12/15/19 25 025 Discontinu ed(Therapy completed) HYDROcodone-acetam inophen ([place]) 5-325 MG tabletIndications: Primary osteoarthritis of right knee May take 1 tablet by mouth every 6 (six) hours if needed for severe pain. May also take 2 tablets every 6 (six) hours if needed for severe pain. Do all this for 7 days. 40 tablet 12/15/19 25 025 Active Problems Problem Noted Date Diagnosed Date Disorientation 10/13/2024 Assessment & Plan (10/13/2024 9:04 AM EDT): [place] to be related to not using PAP [...] adult Primary hypertension 03/16/2024 Assessment & Plan (11/14/2024 [...] the ECHO on file from 05/10/2019 at [facility], as well as ECHO report from [...] flu shot 01/28/2024 AVM (arteriovenous malformation) brain ([facility]) 10/11/2023 Vascular malformation ([facility]) 10/11/2023 Brain lesion 10/11/2023 Carpal tunnel syndrome, [...] 1 twice a day #14 pills, Lot [id number], exp 06/29 Acute cough 07/14/2023 10/21/2023 Assessment & Plan (08/17/2023 10:06 AM EDT): resolved Influenza 07/14/2023 10/21/2023 Acute cystitis with hematuria 05/21/2023 10/21/2023 Right sided weakness 05/18/2023 024 Hemorrhoid 05/18/2023 03/16/2024 Overview (05/18/2023): int/external hemorrhoids Brain vascular malformation ([facility]) 05/18/2023 03/16/2024 Constipation 05/18/2023 08/17/2023 Colon polyps [...] of the risks of continued smoking: stroke, [place], all forms of cancer, lung disease, and [...] Encounters Date Type Department Care Team Description 12/26/2024 10:00 AM EDT Office Visit [facility] [address] [place] [phone] Moses Stone PA Status post arthroscopic surgery of right knee (Primary Dx) 12/26/2024 Bamboo flowsheet [facility] [address] [place] [phone] Moses Stone PA 12/26/2024 Travel 12/14/2024 Orders Only [facility] [address] [place] [phone] Harrison Hoyos DO Primary osteoarthritis of right knee (Primary Dx) 11/23/2024 Clinisync Result Encounter [facility] External Department Unsolicited Provider, Generic External Data 11/23/2024 Clinisync Result Encounter [facility] External Department Unsolicited Harrison Hoyos DO 11/23/2024 Clinisync Result Encounter [facility] External Department Unsolicited Adelaida Carrion NP 11/18/2024 10:15 AM EDT Office Visit [facility] [address] [place] [phone] Harrison Hoyos DO Acute medial meniscus tear of right knee, initial encounter (Primary Dx); Chronic pain of right knee; Morbid obesity (CMS-HCC); Primary osteoarthritis of right knee; Preoperative testing 11/18/2024 Bamboo flowsheet [facility] [address] [place] [phone] Harrison Hoyos DO 11/18/2024 Travel 11/17/2024 8:45 AM EDT Ancillary Procedure [facility] [address] [place] [address] 11/17/2024 Travel 11/16/2024 Abstract [facility] [address] [place] [address] Adelaida Carrion NP 11/14/2024 10:30 AM EDT Procedure Visit [facility] [address] [place] [address] Adelaida Carrion NP Well woman exam with routine gynecological exam (Primary Dx); Morbid (severe) obesity due to excess calories ([facility]); Primary hypertension ; Anemia, unspecified type; Bilateral lower extremity edema; Osteoporosis, unspecified osteoporosis type, unspecified pathological fracture presence ; Chronic kidney disease, stage 3a ([facility]); Pre-diabetes 11/14/2024 Clinisync Result Encounter [facility] External Department Unsolicited Adelaida Carrion NP 11/14/2024 Bamboo flowsheet [facility] [address] [place] [address] Adelaida Carrion NP 11/11/2024 Travel 10/28/2024 Telephone [facility] [address] [place] [phone] Harrison Hoyos DO New Med Request (MRI - Right knee - patient is claustrophobic and requests medication for testing uses Pavan Rodas Fanta ) 10/27/2024 10:15 AM EDT Office Visit [facility] [address] [place] [phone] Harrison Hoyos DO Right knee pain, unspecified chronicity (Primary Dx); Primary osteoarthritis of right knee; Morbid obesity ([facility]) 10/27/2024 8:20 AM EDT Ancillary Procedure [facility] [address] [place] [address] 10/27/2024 Travel 10/24/2024 Orders Only [facility] [address] [place] [address] Adelaida Carrion, BRIANA 10/13/2024 9:00 AM EDT Office Visit [facility] [address] [place] [address] Adelaida Carrion, TOP LIFT SCOURER Disorientation (Primary Dx); Essential (primary) hypertension ; Allergic rhinitis, unspecified seasonality, unspecified trigger; Allergic rhinitis, unspecified; Gastro-esophageal reflux disease without esophagitis; Bilateral lower extremity edema; OSMANY (obstructive sleep apnea); Primary hypertension ; Osteoporosis, unspecified osteoporosis type, unspecified pathological fracture presence 10/13/2024 Orders Only [facility] [address] [place] [address] Adelaida Carrion, TOP LIFT SCOURER 10/13/2024 Bamboo flowsheet [facility] [address] [place] [address] Adelaida Carrion, TOP LIFT SCOURER 10/10/2024 Abstract [facility] [address] [place] [address] Adelaida Carrion, TOP LIFT SCOURER 10/10/2024 Abstract [facility] [address] [place] [address] Adelaida Carrion, TOP LIFT SCOURER 10/10/2024 Abstract [facility] [address] [place] [address] Adelaida Carrion, TOP LIFT SCOURER 10/10/2024 Abstract [facility] [address] [place] [address] Adelaida Carrion, TOP LIFT SCOURER from Last 3 Months Immunizations Immunization Administration [...] often do you attend latter day or pentecostalism serv ices? Never 08/16/2023 Do [...] Recorded Patient Health Questionnaire-2 Score 2 09/21/2023 [facility] [...] Mass Index 47.55 12/26/2024 9:40 AM EDT Plan of Treatment Health Maintenance Due Date Last Done Comments CT Colonography 1961 FIT-DNA 1961 FIT 1961 FOBT 1960 Sigmoidoscopy 1960 HPV/Cotest 12/06/1991 Influenza Vaccine (#1) 2024 , 02/13/2023, 05/28/2018 Cervical Cancer Screening 08/28/2025 Pap Smear 08/28/2025 08/28/2022 Lung Cancer Screening Shared Decision Making 09/26/2025 Postponed from 1961 (Other Medical Reasons) Mammogram 09/26/2025 09/26/2024, 09/04, 09/18/2023, Additional history exists Colonoscopy 03/23/2033 03/23/2023, 02/04/2013 Colorectal Cancer Screening 03/23/2033 Procedures Procedure Name Priority Date/Time Associated Diagnosis Comments MR LUMBAR SPINE WO CON 11/23/2024 1:28 PM EDT XR CHEST 2V 11/23/2024 12:51 PM EDT [facility] VITAMIN D 25 [place] Routine 11/23/2024 8 :51 AM EDT ALL LIPID PROFILE (FASTING) Routine 11/23/2024 8:51 AM EDT [facility] CMP (CMP) (FOR REMOTE [facility] USE) Routine 11/23/2024 8:51 AM EDT ALL CBC WITH AUTO DIFF Routine 11/23/2024 8:51 AM EDT TBH UA (CLEAN/CATCH) MICROSCOPIC IF INDICATE Routine 11/23/2024 8:31 AM EDT TBH MICROALB CREAT RATIO RANDOM Routine 11/23/2024 8:31 AM EDT MR KNEE RIGHT WO IV CONTRAST Routine 11/17/2024 10:04 AM EDT Right knee pain, unspecified chronicity Primary osteoarthritis of right knee Internal derangement of right knee Other tear of medial meniscus, current injury, right knee, initial encounter IGP,APTIMA HPV,AGE GDLN Routine 11/14/2024 10:43 AM EDT XR KNEE 3 VIEWS RIGHT Routine 10/27/2024 8:18 AM EDT Right knee pain, unspecified chronicity DEXA BONE DENSITY Routine 10/24/2024 1:1 7 PM EDT XR DEXA AXIAL SKELETON* Routine 10/13/2024 9:27 AM EDT MM TOMOSYNTHESIS SCREENING BI 09/26/2024 4:42 PM EDT from Last 3 Months or Most Recently Relevant to Health Maintenance Results * MR LUMBAR SPINE WO CON (11/23/2024 1:28 PM EDT) Anatomical Region Laterality Modality Other 11/23/2024 1:28 PM EDT Narrative 11/23/2024 1:30 [place] [address] Magnetic Resonance Report Signed Patient: NASIM BE MR#: [id number] : 1960 Acct:[id number] Age/Sex: 63 / F ADM Date: 11/23/24 Loc: MRI Attending Dr: Elizabeth Culp NP Ordering Physician: Elizabeth Culp NP Date of Service: 11/23/24 Procedure(s): MR lumbar spine wo con Accession Number(s): [id number] cc: Adelaida Carrion NP; Elizabeth Culp NP [place] [id number] Patient Name: NASIM BE MRN: [id number] date: 1960 Sex: F Assigned Patient Location: MRI Current Patient Location: MRI Accession/Order Number: [id number] Exam Date: 11/23/2024 12:59 Report Date: 11/23/2024 [...] noted. There is moderate central canal narrowing. Dvqh-mv-hzgbhyxa neural foraminal narrowing. L4-5: Circumferential disc bulge with small right subarticular zone T2 hyperintensity and protrusion questionably contacting the right traversing L5 nerve root. No high-grade mass effect or displacement on the L5 nerve root identified. Otherwise moderate foraminal narrowing. Advanced facet arthropathy. Kcwr-fv-lbeydohb central canal stenosis. L5-S1: Disc desiccation with [...] Calderon M.D. 11/23/2024 1:28 PM Dictation Location: [place] [address] Electronically authenticated by: [id number] Y Date: 11/23/2024 13:28 Dictated By: Omar Calderon M.D. Signed By: 11/23/24 1330 DD/ 1328 TD/TT: Bleach Liquor Maker: Procedure Note Radiology, Radiologist, MD - 11/23/2024 [place] [address] Magnetic Resonance Report Signed Patient: NASIM BE LMR#: [id number] : 2Acct:[id number] Age/Sex: 63 / FADM Date: 11/23/24 Loc: MRI Attending Dr: Elizabeth Culp TOP LIFT SCOURER Ordering Physician: Elizabeth Culp NP Date of Service: 11/23/24 Procedure(s): MR lumbar spine wo con Accession Number(s): [id number] cc: Adelaida Carrion NP; Elizabeth Culp NP [place] [id number] Patient Name: NASIM BE MRN: [facility]:[id number] date: 1960 Sex: F Assigned Patient Location: MRI Current Patient Location: MRI Accession/Order Number: [id number] Exam Date: 11/23/2024 12:59 Report Date: 11/23/2024 [...] arthropathy this level. Minimal intervertebral space narrowing notablyL5-S1. Conus medullaris service normally at L1-L2. T12-L1: Mild to moderate facet arthropathy. Mild to moderate rightforaminal narrowing and mild left from narrowing. No significant disc disease ordisc protrusion. Canal is patent. L1-2: Mild to moderate right mild left facet arthropathy. No significantdisc disease disc protrusion central canal or neural from narrowing identified. L2-3: Mild to moderate facet arthropathy. Mild left foraminal narrowing. Right foramen and central canal patent. No significant disc disease ordisc protrusion. L3-4: Broad-based disc bulge with moderate to severe facet arthropathy. Slight. Posterior disc noted. There is moderate central canal narrowing. Tvoa-nx-usueovql neural foraminal narrowing. L4-5: Circumferential disc bulge with small right subarticular zone T2 hyperintensity and protrusion questionably contacting the right traversingL5 nerve root. No high-grade mass effect or displacement on the L5 nerveroot identified. Otherwise moderate foraminal narrowing. Advanced facet arthropathy. Bwvk-jz-dsyygyew central canal stenosis. L5-S1: Disc desiccation with moderate facet arthropathy. Canal neural foramina patent. MR/MR lumbar spine wo con IMPRESSION: Posterior elements degenerative changes notably L3-L5 with anterolisthesis L3 on L4 and L4 on L5 up to 4 mm caused by a moderatesevere facet arthropathy. There is up to moderate foraminal narrowing at these levels. Impression dictated by: Omar Calderon M.D. 11/23/2024 1:28 PM Dictation Location: [place] [address] Electronically authenticated by: [id number] Y Date: 3:28 Dictated By: Omar Calderon M.D. Signed By:11/23/24 1330 DD/ 1328 TD/TT: Bleach Liquor Maker: us Generic External Data Provider [facility] Final Result * XR CHEST 2V (11/23/2024 12:51 PM EDT) Anatomical Region Laterality Modality Other 11/23/2024 12:5 1 PM EDT Narrative 11/23/2024 12:54 [place] [address] XRay Report Signed Patient: NASIM BE MR#: [id number] : 1960 Acct:[id number] Age/Sex: 63 / F ADM Date: 11/23/24 Loc: RAD Attending Dr: HARRISON HOYOS Ordering Physician: HARRISON HOYOS Date of Service: 11/23/24 Procedure(s): XR chest 2V Accession Number(s): [id number] cc: Adelaida Carrion TOP LIFT SCOURER; HARRISON HOYOS [place] [address] Patient Name: NASIM BE MRN: [id number] date: 1960 Sex: F Assigned Patient Location: RAD Current Patient Location: MRI Accession/Order Number: [id number] Exam Date: 11/23/2024 12:50 Report Date: 11/23/2024 12:51 At the request of: HARRISON HOYOS Procedure: XR chest 2V PA AND LATERAL CHEST: CLINICAL HISTORY: Pre Operative Testing COMPARISON: 07/24/2024 FINDINGS: Unremarkable cardiomediastinal. Lungs clear. No effusion or pneumothorax. XR/XR chest 2V IMPRESSION: NO ACUTE CARDIOPULMONARY ABNORMALITY. Impression dictated by: Omar Calderon M.D. 11/23/2024 12:51 PM Dictation Location: [employer] Electronically authenticated by: [id number] Y Date: 11/23/2024 12:51 Dictated By: Omar Calderon M.D. Signed By: 11/23/24 1254 DD/ 1251 TD/TT: Bleach Liquor Maker: Procedure Note Radiology, Radiologist, MD - 11/23/2024 [place] [address] XRay Report Signed Patient: NASIM BE LMR#: [id number] : 1960cct:[id number] Age/Sex: 63 / FADM Date: 11/23/24 Loc: RAD Attending Dr: HARRISON HOYOS Ordering Physician: HARRISON HOYOS Date of Service: 11/23/24 Procedure(s): XR chest 2V Accession Number(s): [id number] cc: Adelaida Carrion TOP LIFT SCOURER; HARRISON HOYOS [address] [address] Patient Name: NASIM BE MRN: [id number] date: 1960 Sex: F Assigned Patient Location: [facility] Current Patient Location: MRI Accession/Order Number: [id number] Exam Date: 11/23/2024 12:50 Report Date: 11/23/2024 12:51 At the request of: HARRISON HOYOS Procedure: XR chest 2V PA AND LATERAL CHEST: CLINICAL HISTORY: Pre Operative Testing COMPARISON: 07/24/2024 FINDINGS: Unremarkable cardiomediastinal. Lungs clear. No effusion or pneumothorax. XR/XR chest 2V IMPRESSION: NO ACUTE CARDIOPULMONARY ABNORMALITY. Impression dictated by: Omar Calderon M.D. 11/23/2024 12:51 PM Dictation Location: [employer] Electronically authenticated by: [id number] Y Date: 2:51 Dictated By: Omar Calderon M.D. Signed By:11/23/24 1254 DD/ 1251 TD/TT: Bleach Liquor Maker: us Harrison Hoyos DO [facility] Final Result * TBH VITAMIN D 25 [place] (11/23/2024 8:51 AM EDT) VITAMIN D 36.6 ng/mL TB Comment: <20 ng/mL Vit D deficient 20-<30 ng/mL Vit D insufficient 30-100 ng/mL Vit D sufficient >100 ng/mL Potential Toxicity 11/23/2024 8:51 AM EDT 11/23/2024 8:52 AM EDT Narrative [facility] - 11/23/2024 11:44 AM EDT us Adelaida Carrion NP [facility] Final Result [facility] TB * (ABNORMAL) [facility] CMP (CMP) (FOR REMOTE [facility] USE) (11/23/2024 8:51 AM EDT) SODIUM 140 136 - 145 mmol/L TBH POTASSIUM 4.7 3.5 - 5.1 mmol/L TBH CHLORIDE 105 98 - 107 mmol/L TBH CARBON DIOXIDE 28.7 21.0 - 32.0 mmol/L TBH ANION GAP 11.0 TBH GLUCOSE 98 74 - 106 mg/dL TBH BLOOD UREA NITROGEN 16.0 7.0 - 18.0 mg/dL TBH CREATININE 1.13(H) 0.55 - 1.02 mg/dL TBH TBH EGFR-AF TONGAN 59(L) >=60 mL/min/1. 73m 2 TBH TBH EGFR-NON AF TONGAN 49(L) >=60 mL/min/1. 73m 2 TBH BUN CREATININE RATIO 14.2 TBH CALCIUM 9.2 8.5 - 10.1 mg/dL TBH BILIRUBIN TOTAL 0.4 0.2 - 1.0 mg/dL TBH ASPARTATE AMINO TRANSFERASE 30 15 - 37 U/L TBH ALANINE AMINOTRANSFERASE 26 14 - 59 U/L TBH ALKALINE PHOSPHATASE 91 46 - 116 U/L TBH TOTAL PROTEIN 7.6 6.4 - 8.2 g/dL TBH ALBUMIN LEVEL 3.8 3.4 - 5.0 g/dL TBH GLOBULIN 3.8 g/dL TBH ALBUMIN GLOBULIN RATIO 1.0 TB 11/23/2024 8:51 AM EDT 11/23/2024 8:52 AM EDT Narrative [facility] - 11/23/2024 10:12 AM EDT Adelaida Carrion NP [facility] Final Result [facility] * (ABNORMAL) ALL LIPID PROFILE (FASTING) (11/23/2024 8:51 AM EDT) TRIGLYCERIDES 189(H) <=150 mg/dL TBH CHOLESTEROL 154 <=200 mg/dL TB HDL CHOLESTEROL 34(L) 40 - 60 mg/dL TB Comment: > or =60 mg/dl - LOW CARDIOVASCULAR RISK <40 mg/dl - HIGH CARDIOVASCULAR RISK LDL CHOLESTEROL CALCULATED 83.0 mg/dL TB Comment: <100 mg/dl OPTIMAL 100-129 mg/dl NEAR OR ABOVE OPTIMAL 130-159 mg/dl BORDERLINE HIGH 160-189 mg/dl HIGH >190 mg/dl VERY HIGH VLDL CHOLESTEROL 37.8 mg/dL TB CHOL HDL RATIO 4.5 TB Comment: 3.3 - 4.4 LOW RISK 4.4 - 7.1 AVERAGE RISK 7.1 - 11.0 MODERATE RISK >11.0 HIGH RISK 11/23/2024 8:51 AM EDT 11/23/2024 8:52 AM EDT Narrative [facility] - 11/23/2024 10:12 AM EDT Adelaida Carrion NP [facility] Final Result [facility] * ALL CBC WITH AUTO DIFF (11/23/2024 8:51 AM EDT) [facility] WBC 8.3 4.0 - 11.0 10 3/uL TBH TBH RBC 4.33 4.20 - 5.40 10 6/uL TBH TBH HGB 12.3 12.0 - 16.0 g/dL TBH TBH HCT 37.9 36.0 - 48.0 % TBH TBH MCV 87.5 81.0 - 99.0 fL TBH TBH MCH 28.4 26.7 - 34.0 pg TBH TBH MCHC 32.5 29.9 - 35.2 g/dL TBH TBH RDW 13.5 11.0 - 15.0 % TBH TBH PLT 192 150 - 450 10 3/uL TBH TBH MPV 12.6 9.5 - 13.5 fL TBH NEUTROPHILS PERCENT AUTO 69.7 43.0 - 75.0 % TBH LYMPHOCYTES PERCENT AUTO 20.7 20.5 - 60.0 % TBH MONOCYTES PERCENT AUTO 6.0 1.7 - 12.0 % TBH TBH EO % 2.6 0.9 - 7.0 % TBH BASOPHILS PERCENT AUTO 0.6 0.2 - 2.0 % TBH IMMATURE GRANULOCYTES PCT AUTO 0.4 0.0 - 0.5 % TBH NEUTROPHILS ABSOLUTE AUTO 5.8 1.4 - 6.5 10 3/uL TBH LYMPHOCYTES ABSOLUTE AUTO 1.7 1.2 - 3.8 10 3/uL TBH MONOCYTES ABSOLUTE AUTO 0.5 0.3 - 0.8 10 3/uL TBH TBH EO # 0.2 0.0 - 0.7 10 3/uL TBH BASOPHILS ABSOLUTE AUTO 0.1 0.0 - 0.1 10 3/uL TBH IMMATURE GRANULOCYTES ABS AUTO 0.03 0.00 - 0.03 10 3/uL TBH 11/23/2024 8:51 AM EDT 11/23/2024 8:52 AM EDT Narrative [facility] - 11/23/2024 9:27 AM EDT us Adelaida Carrion NP [facility] Final Result [facility] * TBH UA (CLEAN/CATCH) MICROSCOPIC IF INDICATE (11/23/2024 8:31 AM EDT) COLOR URINE LT. YELLOW YELLOW TBH CLARITY URINE CLEAR CLEAR TBH SPECIFIC GRAVITY URINE 1.020 1.005 - 1.025 TBH PH URINE 5.5 5.0 - 9.0 TBH PROTEIN URINE NEGATIVE NEG/TRACE mg/dL TBH GLUCOSE URINE UA NEGATIVE NEGATIVE mg/dL TBH BILIRUBIN URINE NEGATIVE NEGATIVE TBH KETONES URINE NEGATIVE NEGATIVE mg/dL TBH BLOOD URINE NEGATIVE NEGATIVE TBH NITRITE URINE NEGATIVE NEGATIVE TBH UROBILINOGEN URINE 0.2 0.2 - 1.0 EU/dL TBH LEUKOCYTE ESTERASE URINE NEGATIVE NEGATIVE TBH URINE MICROSCOPIC INDICATED NO TBH 11/23/2024 8:31 AM EDT 11/23/2024 8:52 AM EDT Narrative [facility] - 11/23/2024 9:30 AM EDT Adelaida Carrion NP [facility] Final Result Performing Organization Address [facility] Co de Phone Number [facility] TB * TB MICROALB CREAT RATIO RANDOM (11/23/2024 8:31 AM EDT) MICROALBUMIN URINE RANDOM <1.3 <=30.0 mg/dL TB CREATININE URINE RANDOM 94.24 20.00 - 300.00 mg/dL TB 11/23/2024 8:31 AM EDT 11/23/2024 8:52 AM EDT Narrative [facility] - 11/23/2024 9:17 AM EDT Adelaida Carrion NP [facility] Final Result Performing Organization Address [facility] Co de Phone Number [facility] TB * MR knee right wo IV contrast (11/17/2024 10:04 AM EDT) Anatomical Region Laterality Modality Lower Extremities, Knee Right Magnetic Resonance 11/17/2024 3:24 PM EDT Impressions 11/17/2024 3:31 PM EDT Medial and lateral meniscal tears. Osteoarthritis as discussed. ELECTRONICALLY SIGNED BY: MD Gabi Paez 11/17/2024 3:31 PM EDT EXAMINATION/TECHNIQUE: MR KNEE RIGHT WO IV CONTRAST [...] synovitis. No Strickland's cyst. OTHER: Subcutaneous edema. Procedure Note Te Cardenas MD - 11/17/2024 EXAMINATION/TECHNIQUE: MR KNEE RIGHT WO IV CONTRAST HISTORY: Right knee pain. Concern for medial meniscal tear. COMPARISON: MRI 03/06/2023. Radiographs 10/27/2024. Some limitations from artifact within the patella from prior hardware.Metal reduction sequences performed. RESULT: MENISCI: Medial Meniscus: Complex tearing mostly with horizontal componentinvolving the posterior horn and body. Lateral Meniscus: Tearing at the posterior root. LIGAMENTS: ACL, PCL, MCL, and LCL complex intact. CARTILAGE: Moderate areas of high-grade partial-thickness andfull-thickness chondral loss in the medial and lateral compartments. Atleast small areas of chondral loss involving the patella and trochlea,mostly obscured by artifact. Tricompartmental osteophytes. TENDONS: Distal quadriceps tendon and patellar tendon appear grosslyintact within limits of artifact from patellar hardware. Popliteusintact. BONES AND MARROW: No evidence for recent fracture. No pathologic marrowinfiltration. MUSCLES: Muscle bulk and signal intensity are normal. JOINT FLUID AND SYNOVIUM: Small joint effusion. No synovitis. No Strickland'scyst. OTHER: Subcutaneous edema. IMPRESSION: Medial and lateral meniscal tears. Osteoarthritis as discussed. ELECTRONICALLY SIGNED BY: Te Cardenas MD us Harrison Hoyos DO IMG MRI PROCEDURES Final Result * IGP,APTIMA HPV,AGE GDLN (11/14/2024 10:43 AM EDT) AGE GDLN ACOG TESTING Note . [facility] Comment: TESTS RESULT FLAG UNITS REF RANGE LAB Clinician Provided Cytology Information Source.............Cervix;Endocervix No. of containers..01 ThinPrep Vial Age Algo ACOG Tona... 30-65 01 FLAG LEGEND: L-Low Normal,H-High Normal,LL-Alert Low,HH-Alert High <-Panic Low,>-Panic High,A-Abnormal,AA-Critical Abnormal Performed at: 01 [facility] [address] [place] [address] Farzana Hennessy MD, IGP, APTIMA HPV, RFX 16/18,45 Note . [facility] Comment: TESTS RESULT FLAG UNITS REF RANGE LAB DIAGNOSIS: 02 NEGATIVE FOR INTRAEPITHELIAL LESION OR MALIGNANCY. CELLULAR CHANGES ASSOCIATED WITH ATROPHY ARE PRESENT. Specimen adequacy: 02 Satisfactory for evaluation. Endocervical component may not be distinguished in cases of atrophy. Performed by: 02 Adela Acosta Commissary Representative (ASCP) . 02 Note: Note 02 The [...] <-Panic Low,>-Panic High,A-Abnormal,AA-Critical Abnormal Performed at: [address] [address] Farzana Hennessy MD, HPV APTIMA Negative Negative [facility] Comment: This nucleic acid amplification test detects fourteen high- risk HPV types (16,18,31,33,35,39,45,51,52,56,58,59,66,68) without differentiation. Performed at: = - [address] [id number] Electronic Systems Technician: Farzana Hennessy MD, Phone: [phone] Performed at: [address] [id number] Electronic Systems Technician: Farzana Hennessy MD, Phone: [phone] 11/14/2024 10:4 3 AM EDT 11/14/2024 9:40 PM EDT Narrative [facility] - 11/17/2024 11:13 AM EDT BRUSH-SPATULA CERVIX ENDOCERVIX Adelaida Carrion NP LAB BLOOD ORDERABLES Final Resu lt [facility] * XR knee 3 views right (10/27/2024 8:18 AM EDT) Anatomical Region Laterality Modality Lower Extremities, Knee Right Radiogra phic Imaging Narrative 10/29/2024 11:56 AM EDT Imaging [...] Difficult to define what this procedure was. Harrison Hoyos DO IMG XR PROCEDURES Final Result * DEXA bone density (10/24/2024 1:17 PM EDT) Anatomical Region Laterality Modality Body Radiographic Nelda ging Adelaida Carrion NP IMG DXA PROCEDURES Final Result * XR DEXA AXIAL SKELETON* (10/13/2024 9:27 AM EDT) Anatomical Region Laterality Modality Radiographic Nelda ging Adelaida Carrion NP IMG XR PROCEDURES Final Result * MM TOMOSYNTHESIS SCREENING BI (09/26/2024 4:42 PM EDT) Anatomical Region Laterality Modality Other 09/26/2024 4:42 PM EDT Narrative 09/26/2024 4:43 PM EDT The [address] [address] Mammography Report Signed Patient: NASIM BE MR#: [id number] : 1960 Acct:[id number] Age/Sex: 63 / F ADM Date: 09/26/24 Loc: MAMMO Attending Dr: Adelaida Carrion NP Ordering Physician: Adelaida aCrrion NP Results: Date of Service: 09/26/24 Follow Up: Procedure(s): MM tomosynthesis screening BI Accession Number(s): [id number] cc: Adelaida Carrion NP Patient Name: NASIM BE MR#: [id number] : 1960 Exam Date: 09/26/2024 Ordering Doctor: [...] None Family Cancers None LOCATION: [facility] BREAST COMPOSITION: There are scattered areas [...] M.D. Signed By: 09/26/241642 DD/ 41 TD/TT: Bleach Liquor Maker: Procedure Note Radiology, Radiologist, MD - 09/26/2024 The [place] [id number] Mammography Report Signed Patient: NASIM BE LMR#: [id number] : 1960cct:[id number] Age/Sex: 63 / FADM Date: 09/26/24 Loc: MAMMO Attending Dr: Adelaida Carrion NP Ordering Physician: Adelaida Carrion NPResults: Date of Service: 09/26/24Follow Up: Procedure(s): MM tomosynthesis screening BI Accession Number(s): [id number] cc: Adelaida Carrion NP Patient Name: NASIM BE MR#: [id number] : 1960 Exam Date: 09/26/2024 Ordering Doctor: [...] None Family Cancers None LOCATION: [facility] BREAST COMPOSITION: There are scattered areas [...] Grover M.D. Signed By:09/26/241642 DD/ 41 TD/TT: Bleach Liquor Maker: Adelaida Carrion NP [facility] Final Result from Last 3 Months or Most Recently Relevant to Health Maintenance Insurance [employer] MEDICARE Advance Directives Documents on File Type Date Recorded Patient Clinical Psychiatrist Expl anation Power of Mannequin Refinisher 03/16/2024 9:42 AM darian ellis of sewer separation designer Power of Mannequin Refinisher 03/10/2024 3:12 PM POA Care Teams Public Relations Supervisor Relationship Specialty Start Date End Date José Luis Roberts MD [address] [place] [id number] PCP - General Family Medicine 02/02/24 Miriam Suarez DO [address] [place] [address] Referring Physician Neurology 06/29/23 Adelaida Carrion NP [address] [place] [address] Nurse Practitioner Family Medicine 01/27/24 Juany Leggett PA [address] [place] [address] Physician Director Of Product Marketing Neurology 07/26/24
--- OUTSIDE RECORDS SUMMARY | 2025-01-09 07:07 | XMS_ITS | Encounter Summary ---
Author Organization [facility] Address [address] [place] [address] Care Team Providers Care Client Services Administrator Name Role Phone Saurav Suarezkayleen GRAHAM Unavailable [phone] Adelaida Carrion NP Unavailable [phone] José Luis Roberts MD Primary Care Provider [phone] Bong Rosado MA Unavailable [phone] Juany Leggett Unavailable Encounter Details Date Type Department Care Team (Late st Contact Info) Description 03/17/2024 Orders Only [facility] [address] [place] [address] Adelaida Carrion, HEATING ELEMENT BUILDER [address] [place] [address] Social History Tobacco Use Types Packs/Day Years [...] How often do you attend muslim or alevism serv ices? Never 08/16/2023 Do you belong [...] Health Questionnaire-2 Score 2 09/21/2023 [facility] [place] of Occupat ional Health - Occupational Stress [...] (03/17/2024 9:17 AM EST) us Adelaida Carrion HEATING ELEMENT BUILDER ECG ORDERABLES Final Result documented in this encounter Visit Diagnoses Not on filedocumented in this encounter Additional Health Concerns Assessment Noted Time PHQ-9 Depression Total Score: 8 05/18/19 24 5:00 PM EST documented as of this encounter Care Teams Client Services Administrator Relationship Specialty Start Date End Date José Luis Roberts MD [address] [place] [address] PCP - General Family Medicine 02/02/24 Miriam Suarez DO [address] [place] [address] Referring Physician Neurology 06/29/23 Adelaida Carrion NP [address] [place] [address] Nurse Practitioner Family Medicine 01/27/24 Bong Rosado MA [address] [place] [address] Family Medicine 02/12/24 11/29/24 Juany Leggett PA [address] [place] [address] Physician Surgeon Partner Neurology 07/26/24 documented as of this encounter
--- OUTSIDE RECORDS SUMMARY | 2025-01-09 07:07 | XMS_ITS | Encounter Summary ---
Author Organization [facility] Address [address] [place] [address] Care Team Providers Care Gizzard Peeler Name Role Phone Miriam Suarez Unavailable [phone] Adelaida Carrion NP Unavailable [phone] José Luis Roberts MD Primary Care Provider [phone] Bong Rosado MA Unavailable [phone] Juany Leggett Unavailable Encounter Details Date Type Department Care Team (Late st Contact Info) Description 10/10/2024 Abstract [facility] [address] [place] [address] Adelaida Carrion, BRIANA [address] [place] [address] Social History Tobacco Use Types Packs/Day Years [...] How often do you attend yazidism or methodist serv ices? Never 08/16/2023 Do [...] Recorded Patient Health Questionnaire-2 Score 2 09/21/2023 [facility] [place] of Occupat ional Health - Occupational [...] documented as of this encounter Care Teams Gizzard Peeler Relationship Specialty Start Date End Date José Luis Roberts MD [address] [place] [address] PCP - General Family Medicine 02/02/24 Miriam Suarez DO [address] [place] [address] Referring Physician Neurology 06/29/23 Adelaida Carrion NP [address] [place] [address] Nurse Practitioner Family Medicine 01/27/24 Bong Rosado MA [address] [place] [address] Family Medicine 02/12/24 11/29/24 Juany Leggett PA [address] [place] [address] Physician Production Counter Neurology 07/26/24 documented as of this encounter
--- OUTSIDE RECORDS SUMMARY | 2025-01-09 07:07 | XMS_ITS | Encounter Summary ---
Author Organization [facility] Address [address] [place] [address] Care Team Providers Care Motor Expert Name Role Phone Adelaida Carrion NP Unavailable [phone] José Luis Roberts MD Primary Care Provider [phone] Miriam Suarez DO Unavailable [phone] Mathew Parra MINERAL ECONOMIST Unavailable Unavailable Diana De Leon LPN Unavailable Unallocated, Noms Provider Primary Care Provi kellee Adelaida Carrion NP Unavailable [phone] José Luis Roberts MD Primary Care Provider [phone] Bong Rosado MA Unavailable [phone] Juany Leggett Unavailable Encounter Details Date Type Department Care Team (Late st Contact Info) Description 12/02/2023 Orders Only [facility] [address] [place] [address] Bhakti Culp NP [address] [place] [address] Social History Tobacco Use Types [...] How often do you attend adventist or buddhist serv ices? Never 08/16/2023 Do [...] L-spine Radiographic Nelda ging us Bhakti Culp FACING CUTTING MACHINE OPERATOR IMG XR PROCEDURES Final Result * XR thoracic spine 3 views (12/02/2023 4:01 PM EDT) Anatomical Region Laterality Modality Spine, T-spine Radiographic Nelda ging Bhakti Culp FACING CUTTING MACHINE OPERATOR IMG XR PROCEDURES Final Result documented in this encounter Visit Diagnoses Not on filedocumented in this encounter Additional Health Concerns Assessment Noted Time PHQ-9 Depression Total Score: 8 05/18/19 24 5:00 PM EST documented as of this encounter Care Teams Motor Expert Relationship Specialty Start Date End Date José Luis Roberts MD PCP - General Family Medicine 05/18/23 01/26/24 Unallocated, Noms MD Mariela [address] [place] [address] PCP - General Family Medicine 01/27/24 02/01/24 José Luis Roberts MD PCP - General Family Medicine 02/02/24 Adelaida Carrion NP Referring Physician Nurse Practitioner 10/14/22 Miriam Suarez DO [address] [place] [address] Referring Physician Neurology 06/29/23 Mathew Parra LPN Licensed Practical Nurse Family Medicine 07/23/23 Diana De Leon LPN [address] [place] [address] Licensed Practical Nurse Family Medicine 12/18/2302/11 Adelaida Carrion NP [address] [place] [address] Nurse Practitioner Family Medicine 01/27/24 Bong Rosado, [place] [address] [place] [address] Family Medicine 02/12/24 11/29/24 Juany Leggett PA [address] [place] [address] Physician Signals Intelligence Superintendent Neurology 07/26/24 documented as of this encounter
--- OUTSIDE RECORDS SUMMARY | 2025-01-09 07:07 | XMS_ITS | Encounter Summary ---
Author Organization [facility] Address [address] [place] [address] Care Team Providers Care Spooling Supervisor Name Role Phone Adelaida Carrion NP Unavailable [phone] José Luis Roberts MD Primary Care Provider [phone] Miriam Suarez DO Unavailable [phone] Mathew Parra ELECTRICAL CONTACTS ADJUSTER Unavailable Unavailable Diana De Leon LPN Unavailable Unallocated, Noms Provider Primary Care Provi kellee Adelaida Carrion NP Unavailable [phone] José Luis Roberts MD Primary Care Provider [phone] Bong Rosado MA Unavailable [phone] Juany Leggett Unavailable Encounter Details Date [...] How often do you attend scientologist or temple serv ices? Never 08/16/2023 Do [...] Questionnaire-2 Score 2 09/21/2023 [facility] [place] of Occupat ional Health - Occupational Stress [...] PM EDT Narrative 12/02/2023 2:55 [place] [address] XRay Report Signed Patient: NASIM INGRAM MR#: [id number] : 1960 Acct:[id number] Age/Sex: 62 / F ADM Date: 12/02/23 Loc: RAD Attending Dr: Elizabeth Cano NP Ordering Physician: Elizabeth Cano NP Date of Service: 12/02/23 Procedure(s): XR thoracic spine 2V Accession Number(s): [id number] cc: Adelaida Carrion NP; Elizabeth Cano NP [place] [id number] Patient Name: NASIM INGRAM MRN: [id number] date: 1960 Sex: F Assigned Patient Location: [facility] Current Patient Location: [facility] Accession/Order Number: [id number] Exam Date: 12/02/2023 14:10 Report Date: 12/02/2023 [...] By: Harrison Maciel M.D. Signed By: 12/02/23 145 DD/ 52 TD/TT: College Or University Registrar: Procedure Note Radiology, Radiologist, - 12/02/2023 [place] [address] XRay Report Signed Patient: NASIM INGRAM LMR#: [id number] : 1960cct:[id number] Age/Sex: 62 / FADM Date: 12/02/23 Loc: RAD Attending Dr: Elizabeth Cano NP Ordering Physician: Elizabeth Cano NP Date of Service: 12/02/23 Procedure(s): XR thoracic spine 2V Accession Number(s): [id number] cc: Adelaida Carrion NP; Elizabeth Cano NP The [place] [address] Patient Name: NASIM INGRAM MRN: [facility]:[id number] date: 1960 Sex: F Assigned Patient Location: [facility] Current Patient Location: [facility] Accession/Order Number: [id number] Exam Date: 12/02/2023 14:10 Report Date: 12/02/2023 [...] Harrison Maciel M.D. Signed By:12/02/23 1455 DD/ 52 TD/TT: College Or University Registrar: us Generic External Data Provider IMG XR PROCEDURES Final Result documented in this encounter Visit Diagnoses Not on filedocumented in this encounter Additional Health Concerns Assessment Noted Time PHQ-9 Depression Total Score: 8 05/18/19 24 5:00 PM EST documented as of this encounter Care Teams Spooling Supervisor Relationship Specialty Start Date End Date José Luis Roberts MD PCP - General Family Medicine 05/18/23 01/26/24 Unallocated, Johan Sierra MD [address] [facility] [place] [address] PCP - General Family Medicine 01/27/24 02/01/24 José Luis Roberts MD PCP - General Family Medicine 02/02/24 Adelaida Carrion NP Referring Physician Nurse Practitioner 10/14/22 Miriam Suarez DO [address] [place] [address] Referring Physician Neurology 06/29/23 Mathew Parra LPN Licensed Practical Nurse Family Medicine 07/23/23 Diana De Leon LPN [address] [place] [address] Licensed Practical Nurse Family Medicine 12/18/2302/11 Adelaida Carrion NP [address] [place] [address] Nurse Practitioner Family Medicine 01/27/24 Bong Rosado MA [address] [place] [address] Family Medicine 02/12/24 11/29/24 Juany Leggett PA [address] [facility] [address] [place] [address] Physician Community Relations Advisor Neurology 07/26/24 documented as of this encounter
--- OUTSIDE RECORDS SUMMARY | 2025-01-09 07:07 | XMS_ITS | Encounter Summary ---
Author Organization [facility] Address [address] [place] [address] Care Team Providers Care Jewelry Manager Name Role Phone DanielaSaurav baezakayleen GRAHAM Unavailable [phone] Adelaida Carrion NP Unavailable [phone] José Luis Roberts MD Primary Care Provider Bong Rosado MA Unavailable [phone] Juany Leggett Unavailable Encounter Details Date Type Department Care Team (Late st Contact Info) Description 10/24/2024 Orders Only [facility] [address] [place] [address] Adelaida Carrion, EVENT PRODUCER [address] [place] [address] Social History Tobacco Use Types Packs/Day Years [...] How often do you attend muslim or anabaptist serv ices? Never 08/16/2023 Do [...] Recorded Patient Health Questionnaire-2 Score 2 09/21/2023 [facility] [place] of Occupat ional Health - Occupational [...] Region Laterality Modality Body Radiographic Nelda ging us Adelaida Carrion EVENT PRODUCER IMG DXA PROCEDURES Final Result documented in this encounter Visit Diagnoses Not on filedocumented in this encounter Additional Health Concerns Assessment Noted Time PHQ-9 Depression Total Score: 8 05/18/19 24 5:00 PM EST documented as of this encounter Care Teams Jewelry Manager Relationship Specialty Start Date End Date José Luis Roberts MD [address] [place] [address] PCP - General Family Medicine 02/02/24 Miriam Suarez DO [address] [place] [address] Referring Physician Neurology 06/29/23 Adelaida Carrion NP [address] [place] [address] Nurse Practitioner Family Medicine 01/27/24 Bong Rosado MA [address] [place] [address] Family Medicine 02/12/24 11/29/24 Juany Leggett PA [address] [place] [address] Physician Eyeglass Lens Cutter Neurology 07/26/24 documented as of this encounter
--- OUTSIDE RECORDS SUMMARY | 2025-01-09 07:07 | XMS_ITS | Encounter Summary ---
Author Organization [facility] Address [address] [facility] [place] [address] Care Team Providers Care Generator Operator Name Role Phone Adelaida Carrion NP Unavailable [phone] José Luis Roberts MD Primary Care Provider [phone] José Luis Roberts MD Primary Care Provider [phone] Miriam Suarez DO Unavailable [phone] Aida, Ardana PROSTHETICS ASSISTANT Unavailable Unavailable Aida Ardana PROSTHETICS ASSISTANT Unavailable Unavailable Diana De Leon PROSTHETICS ASSISTANT Unavailable Unallocated, Noms Provider Primary Care Provi kellee Adelaida Carrion MANAGER IN TRAINING Unavailable [phone] José Luis Roberts MD Primary Care Provider [phone] Bong Rosado MA Unavailable [phone] Juany Leggett Unavailable Encounter Details Date Type Department Care Team (Late st Contact Info) Description 01/09/2023 Abstract [facility] [address] [place] [address] Travon Hines PA [address] [place] [address] Social History Tobacco Use Types [...] on filedocumented in this encounter Care Teams Generator Operator Relationship Specialty Start Date End Date José Luis Roberts MD PCP - General Family Medicine 10/14/22 05/17/23 José Luis Roberts MD PCP - General Family Medicine 05/18/23 01/26/24 Unallocated, Johan Sierra MD [address] [place] [address] PCP - General Family Medicine 01/27/24 02/01/24 José Luis Roberts MD PCP - General Family Medicine 02/02/24 Adelaida Carrion NP Referring Physician Nurse Practitioner 10/14/22 Miriam Suarez DO [address] [place] [address] Referring Physician Neurology 06/29/23 Mathew Parra LPN Registered Nurse Family Medicine 07/07/23 07/08/23 Mathew Parra LPN Licensed Practical Nurse Family Medicine 07/23/23 Diana De Leon LPN [address] [place] [address] Licensed Practical Nurse Family Medicine 12/18/2302/11 Adelaida Carrion NP [address] [place] [address] Nurse Practitioner Family Medicine 01/27/24 Bong Rosado, [place] [address] [place] [address] Family Medicine 02/12/24 11/29/24 Juany Leggett PA [address] [place] [address] Physician Dry Ice Maker Neurology 07/26/24 documented as of this encounter
--- OUTSIDE RECORDS SUMMARY | 2025-01-09 07:07 | XMS_ITS | Encounter Summary ---
Author Organization [facility] Address [address] [place] [address] Care Team Providers Care Waste Treatment Operator Name Role Phone Adelaida Carrion NP Unavailable [phone] José Luis Roberts MD Primary Care Provider Miriam Suarez DO Unavailable [phone] Mathew Parra RAISED PRINTER Unavailable Unavailable Diana De Leon RAISED PRINTER Unavailable Unallocated, Noms Provider Primary Care Provi kellee Adelaida Carrion NP Unavailable [phone] José Luis Roberts MD Primary Care Provider [phone] Bong Rosado MA Unavailable [phone] Juany Leggett Unavailable Encounter Details Date Type Department Care Team (Late st Contact Info) Description 08/25/2023 Orders Only [facility] [address] [place] [address] Adelaida Carrion NP [address] [place] [address] Social History Tobacco Use Types [...] declined 08/16/2023 How often do you attend buddhism or baptism serv ices? Never 08/16/2023 Do you belong to any clubs o r organizations such as buddhism groups, unions, fraternal or athletic groups, or [...] Recorded Patient Health Questionnaire-2 Score 0 08/17/2023 [facility] of Occupat ional Health - [...] Report (08/24/2023 8:39 AM EDT) Adelaida Carrion MANAGER OF ENGINEERING IN CLINIC/BEDSIDE ORDERABLES Fi nal Result documented in this encounter Visit Diagnoses Not on filedocumented in this encounter Additional Health Concerns Assessment Noted Time PHQ-9 Depression Total Score: 8 05/18/19 24 5:00 PM EST documented as of this encounter Care Teams Waste Treatment Operator Relationship Specialty Start Date End Date José Luis Roberts MD PCP - General Family Medicine 05/18/23 01/26/24 Unallocated, Noms Provider, [address] [place] [address] PCP - General Family Medicine 01/27/24 02/01/24 José Luis Roberts MD PCP - General Family Medicine 02/02/24 Adelaida Carrion NP Referring Physician Nurse Practitioner 10/14/22 Miriam Suarez DO [address] [place] [address] Referring Physician Neurology 06/29/23 Mathew Parra LPN Licensed Practical Nurse Family Medicine 07/23/23 Diana De Leon LPN [address] [place] [address] Licensed Practical Nurse Family Medicine 12/18/2302/11 Adelaida Carrion NP [address] [place] [address] Nurse Practitioner Family Medicine 01/27/24 Bong Rosado, [place] [address] [place] [address] Family Medicine 02/12/24 11/29/24 Juany Leggett PA [address] [place] [address] Physician Bank Vault Custodian Neurology 07/26/24 documented as of this encounter
--- OUTSIDE RECORDS SUMMARY | 2025-01-09 07:07 | XMS_ITS | Encounter Summary ---
Author Organization [facility] Address [address] [place] [address] Care Team Providers Care Department Administrator Name Role Phone Miriam Suarez Unavailable [phone] Adelaida Carrion NP Unavailable [phone] José Luis Roberts MD Primary Care Provider [phone] Bong Rosado MA Unavailable [phone] Juany Leggett Unavailable Encounter Details Date Type Department Care Team (Late st Contact Info) Description 10/10/2024 Abstract [facility] [address] [place] [address] Adelaida Carrion, BRIANA [address] [place] [address] Social History Tobacco Use Types Packs/Day Years [...] declined 08/16/2023 How often do you attend congregational or jewish serv ices? Never 08/16/2023 Do you belong [...] Recorded Patient Health Questionnaire-2 Score 2 09/21/2023 [facility] of Occupat ional Health - Occupational Stress [...] documented as of this encounter Care Teams Department Administrator Relationship Specialty Start Date End Date José Luis Robetrs MD [address] [place] [address] PCP - General Family Medicine 02/02/24 Miriam Suarez DO [address] [place] [address] Referring Physician Neurology 06/29/23 Adelaida Carrion NP [address] [place] [address] Nurse Practitioner Family Medicine 01/27/24 Bong Rosado MA [address] [place] [address] Family Medicine 02/12/24 11/29/24 Juany Leggett PA [address] [place] [address] Physician Business Communications Instructor Neurology 07/26/24 documented as of this encounter
--- OUTSIDE RECORDS SUMMARY | 2025-01-09 07:07 | XMS_ITS | Encounter Summary ---
Author Organization [facility] Address [address] [place] [address] Care Team Providers Care Chief Development Officer Name Role Phone Miriam Suarez Unavailable [phone] Adelaida Carrion NP Unavailable [phone] José Luis Roberts MD Primary Care Provider Bong Rosado MA Unavailable [phone] Juany Leggett Unavailable Encounter Details Date Type Department Care Team (Late st Contact Info) Description 10/10/2024 Abstract [facility] [address] [place] [address] Adelaida Carrion, BRIANA [address] [place] [address] Social History Tobacco Use Types Packs/Day Years [...] How often do you attend christian or hoahaoism serv ices? Never 08/16/2023 Do [...] Recorded Patient Health Questionnaire-2 Score 2 09/21/2023 [facility] [place] of Occupat ional Health - Occupational Stress [...] documented as of this encounter Care Teams Chief Development Officer Relationship Specialty Start Date End Date José Luis Roberts MD [address] [place] [address] PCP - General Family Medicine 02/02/24 Miriam Suarez DO [address] [place] [address] Referring Physician Neurology 06/29/23 Adelaida Carrion NP [address] [place] [address] Nurse Practitioner Family Medicine 01/27/24 Bong Rosado MA [address] [place] [address] Family Medicine 02/12/24 11/29/24 Juany Leggett PA [address] [place] [address] Physician Aircraft Launch And Recovery Technician Neurology 07/26/24 documented as of this encounter
--- OUTSIDE RECORDS SUMMARY | 2025-01-09 07:07 | XMS_ITS | Encounter Summary ---
Author Organization [facility] Address [address] [place] [address] Care Team Providers Care Dynamics Ax Solution Architect Name Role Phone Adelaida Carrion NP Unavailable [phone] José Luis Roberts MD Primary Care Provider [phone] Miriam Suarez DO Unavailable [phone] Mathew Parra CASH APPLICATION REPRESENTATIVE Unavailable Unavailable Diana De Leon CASH APPLICATION REPRESENTATIVE Unavailable Unallocated, Noms Provider Primary Care Provi kellee Adelaida Carrion NP Unavailable [phone] José Luis Roberts MD Primary Care Provider [phone] Bong Rosado MA Unavailable [phone] Juany Leggett Unavailable Encounter Details Date Type Department Care Team (Late st Contact Info) Description 08/26/2023 Orders Only [facility] [address] [facility] [facility] [facility] [place] [address] Arsalan Hagen MD [facility] [address] [address] Social History Tobacco Use Types Packs/Day Years [...] Patient Health Questionnaire-2 Score 0 08/17/2023 [facility] of Occupat ional [...] documented as of this encounter Care Teams Dynamics Ax Solution Architect Relationship Specialty Start Date End Date José Luis Roberts MD PCP - General Family Medicine 05/18/23 01/26/24 Unallocated, Johan Sierra MD [address] [place] [address] PCP - General Family Medicine 01/27/24 02/01/24 José Luis Roberts MD PCP - General Family Medicine 02/02/24 Adelaida Carrion NP Referring Physician Nurse Practitioner 10/14/22 Miriam Suarez DO [address] [place] [address] Referring Physician Neurology 06/29/23 Mathew Parra LPN Licensed Practical Nurse Family Medicine 07/23/23 Diana De Leon LPN [address] [place] [address] Licensed Practical Nurse Family Medicine 12/18/2302/11 Adelaida Carrion NP [address] [place] [address] Nurse Practitioner Family Medicine 01/27/24 Bong Rosado, [place] [address] [place] [address] Family Medicine 02/12/24 11/29/24 Juany Leggett PA [address] [place] [address] Physician Tank Erector Neurology 07/26/24 documented as of this encounter
--- OUTSIDE RECORDS SUMMARY | 2025-01-09 07:07 | XMS_ITS | Encounter Summary ---
Author Organization [facility] Address [address] [place] [address] Care Team Providers Care Budget Specialist Name Role Phone Miriam Suarez DO Unavailable [phone] Adelaida Carrion NP Unavailable [phone] José Luis Roberts MD Primary Care Provider [phone] Bong Rosado MA Unavailable [phone] Juany Leggett Unavailable Encounter Details Date Type Department Care Team (Late st Contact Info) Description 08/08/2024 Abstract [facility] [address] [place] [address] José Luis Roberts MD [address] [place] [address] Social History Tobacco Use Types [...] declined 08/16/2023 How often do you attend synagogue or yazidism serv ices? Never 08/16/2023 Do you belong to any clubs o r organizations such as synagogue groups, unions, fraternal or athletic groups, or [...] Recorded Patient Health Questionnaire-2 Score 2 09/21/2023 [facility] [place] of Occupat ional Health - Occupational Stress [...] documented as of this encounter Care Teams Budget Specialist Relationship Specialty Start Date End Date José Luis Roberts MD [address] [place] [address] PCP - General Family Medicine 02/02/24 Miriam Suarez DO [address] [place] [address] Referring Physician Neurology 06/29/23 Adelaida Carrion NP [address] [place] [address] Nurse Practitioner Family Medicine 01/27/24 Bong Rosado MA [address] [place] [address] Family Medicine 02/12/24 11/29/24 Juany Leggett PA [address] [place] [address] Physician Processor Solid Propellant Neurology 07/26/24 documented as of this encounter
--- OUTSIDE RECORDS SUMMARY | 2025-01-09 07:07 | XMS_ITS | Encounter Summary ---
Author Organization [facility] Address [address] [facility] [place] [address] Care Team Providers Care Wind Commissioning Technician Name Role Phone Adelaida Carrion NP Unavailable [phone] José Luis Roberts MD Primary Care Provider [phone] José Luis Roberts MD Primary Care Provider [phone] Miriam Suarez DO Unavailable [phone] Aida, Ardana NURSING STAFF DEVELOPMENT COORDINATOR Unavailable Unavailable Aida Ardana NURSING STAFF DEVELOPMENT COORDINATOR Unavailable Unavailable Diana De Leon NURSING STAFF DEVELOPMENT COORDINATOR Unavailable Unallocated, Noms Provider Primary Care Provi kellee Adelaida Carrion LEAD DEVELOPER Unavailable [phone] José Luis Roberts MD Primary Care Provider [phone] Bong Rosado MA Unavailable [phone] Juany Leggett Unavailable Encounter Details Date Type Department Care Team (Late st Contact Info) Description 01/23/2023 Abstract [facility] [address] [place] [address] Travon Hines PA [address] [place] [address] Social History Tobacco Use Types [...] on filedocumented in this encounter Care Teams Wind Commissioning Technician Relationship Specialty Start Date End Date José Luis Roberts MD PCP - General Family Medicine 10/14/22 05/17/23 José Luis Roberts MD PCP - General Family Medicine 05/18/23 01/26/24 Unallocated, Johan Sierra MD [address] [place] [address] PCP - General Family Medicine 01/27/24 02/01/24 José Luis Roberts MD PCP - General Family Medicine 02/02/24 Adelaida Carrion NP Referring Physician Nurse Practitioner 10/14/22 Miriam Suarez DO [address] [place] [address] Referring Physician Neurology 06/29/23 Mathew Parra LPN Registered Nurse Family Medicine 07/07/23 07/08/23 Mathew Parra LPN Licensed Practical Nurse Family Medicine 07/23/23 Diana De Leon LPN [address] [place] [address] Licensed Practical Nurse Family Medicine 12/18/2302/11 Adelaida Carrion NP [address] [place] [address] Nurse Practitioner Family Medicine 01/27/24 Bong Rosado, [place] [address] [place] [address] Family Medicine 02/12/24 11/29/24 Juany Leggett PA [address] [place] [address] Physician Bargain Table Clerk Neurology 07/26/24 documented as of this encounter
--- OUTSIDE RECORDS SUMMARY | 2025-01-09 07:07 | XMS_ITS | Encounter Summary ---
Author Organization [facility] Address [address] [place] [address] Care Team Providers Care Battalion Fire Chief Name Role Phone Miriam Suarez DO Unavailable [phone] Adelaida Carrion NP Unavailable [phone] José Luis Roberts MD Primary Care Provider Bong Rosado MA Unavailable [phone] Juany Leggett Unavailable Encounter Details Date Type Department Care Team (Late st Contact Info) Description 03/08/2024 Orders Only [facility] [address] [place] [address] Dennis Steel DO Social History [...] How often do you attend taoist or alevism serv ices? Never 08/16/2023 Do [...] Questionnaire-2 Score 2 09/21/2023 [facility] of Occupat ional Health - Occupational [...] documented as of this encounter Care Teams Battalion Fire Chief Relationship Specialty Start Date End Date José Luis Roberts MD [address] [place] [address] PCP - General Family Medicine 02/02/24 Miraim Suarez DO [address] [place] [address] Referring Physician Neurology 06/29/23 Adelaida Carrion NP [address] [place] [address] Nurse Practitioner Family Medicine 01/27/24 Bong Rosado MA [address] [place] [address] Family Medicine 02/12/24 11/29/24 Juany Leggett PA [address] [place] [address] Physician Medical Oncology Physician Neurology 07/26/24 documented as of this encounter
--- OUTSIDE RECORDS SUMMARY | 2025-01-09 07:07 | XMS_ITS | Patient Health Record ---
Author Organization [facility] [place] Address [address] [place] [address] Care Team Providers Care Interactive Media Specialist Name Role Phone Adelaida Carrion CNP Primary [...] TAKE 1 TABLET BY MOUTH TWICE DAILY Oral; Duration: 14 Days Active Citracal + D Active Fluticasone Propionate 50 MCG/ACT INSTILL 2 SPRAY IN EACH NOSTRIL DAILY Nasal; Duration: 30 Days Active Cetirizine HCl 10 MG [...] Problem Status W/U Status Risk Notes Problem Sprain of ligament of tarsometatarsal joint (67464094) Sprain of tarsometatarsal ligament of right foot, initial encounter (S93.621A) Active confirmed Problem Lumbar post-laminectomy syndrome (662874231) Lumbar postlaminectomy syndrome (M96.1) Active confirmed Problem Lumbosacral spondylosis without myelopathy (28579562) Lumbosacral spondylosis without myelopathy (M47.817) Active confirmed Problem Altered mental status (511334191) Altered mental status (R41.82) Active confirmed Plan [...] [employer] MEDICARE PPO [address] [address] [place], [place] [id number] Nasim Conway Self - patient is the insured [place]IC[place] [address] [id number] Nasim Conway Self - patient is the insured Medical (General) History Medical History History ICD Code Right foot pain M79.671 hypertension dysphagia Osteoporosis M81.0 Bipolar disorder with severe depression F31.4 Brain vascular 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
--- OUTSIDE RECORDS SUMMARY | 2025-01-09 07:07 | XMS_ITS | Encounter Summary ---
Author Organization [facility] Address [address] [place] [address] Care Team Providers Care Child Day Care Center Worker Name Role Phone Adelaida Carrion NP Unavailable [phone] José Luis Roberts MD Primary Care Provider [phone] José Luis Roberts MD Primary Care Provider [phone] Miriam Suarez DO Unavailable [phone] [place], Ardana SUPPORT STAFF Unavailable Unavailable Aida Ardana SUPPORT STAFF Unavailable Unavailable Diana De Leon SUPPORT STAFF Unavailable Unallocated, Noms Provider Primary Care Provi kellee Adelaida Carrion NP Unavailable [phone] José Luis Roberts MD Primary Care Provider +[phone] Bong Rosado MA Unavailable [phone] Juany Leggett Unavailable Encounter Details Date Type Department Care Team (Late st Contact Info) Description 03/06/2023 Clinisync Result Encounter [facility] External Department Unsolicited Ashleigh Hines, MAUREEN [address] [place] [address] Social History Tobacco Use Types [...] PM EST Narrative 03/06/2023 3:55 [place] [address] Magnetic Resonance Report Signed Patient: NASIM INGRAM MR#: [id number] : 1960 Acct:[id number] Age/Sex: 62 / F ADM Date: 03/06/23 Loc: MRI Attending Dr: Ashleigh REDDY Ordering Physician: Ashleigh Hines Date of Service: 03/06/23 Procedure(s): knee RT wo con Accession Number(s): [id number] cc: Adelaida Carrion NP; Ashleigh Hines [place] [id number] Patient Name: NASIM INGRAM MRN: [id number] date: 1960 Sex: F Assigned Patient Location: MRI Current Patient Location: MRI Accession/Order Number: [id number] Exam Date: 03/06/2023 09:30 Report Date: 03/06/2023 [...] Signed By: 03/06/23 1558 DD/ 1555 TD/TT: Licensed Psychiatric Technician: Procedure Note Radiology, Radiologist, MD - 03/06/2023 [place] [address] Magnetic Resonance Report Signed Patient: NASIM INGRAM LMR#: [id number] : 1960cct:[id number] Age/Sex: 62 / FADM Date: 03/06/23 Loc: MRI Attending Dr: Ashleigh RDEDY Ordering Physician: Ashleigh Hines Date of Service: 03/06/23 Procedure(s): MR knee RT wo con Accession Number(s): [id number] cc: Adelaida Carrion NP; Ashleigh Hines [place] [id number] Patient Name: NASIM INGRAM MRN: [id number] date: 1960 Sex: F Assigned Patient Location: MRI Current Patient Location: MRI Accession/Order Number: [id number] Exam Date: 03/06/2023 09:30 Report Date: 03/06/2023 [...] M.D. Signed By:03/06/23 1558 DD/ 1555 TD/TT: Licensed Psychiatric Technician: us Ashleigh REDDY [facility] Final Resul t documented in this encounter Visit Diagnoses Not on filedocumented in this encounter Care Teams Child Day Care Center Worker Relationship Specialty Start Date End Date José Luis Roberts MD PCP - General Family Medicine 10/14/22 05/17/23 José Luis Roberts MD PCP - General Family Medicine 05/18/23 01/26/24 Unallocated, Johan Sierra MD [address] [place], [place] [address] PCP - General Family Medicine 01/27/24 02/01/24 José Luis Roberts MD PCP - General Family Medicine 02/02/24 Adelaida Carrion NP Referring Physician Nurse Practitioner 10/14/22 Miriam Suarez DO [address] [place] [address] Referring Physician Neurology 06/29/23 Mathew Parra LPN Registered Nurse Family Medicine 07/07/23 07/08/23 Mathew Parra LPN Licensed Practical Nurse Family Medicine 07/23/23 Diana De Leon LPN [address] [place] [address] Licensed Practical Nurse Family Medicine 12/18/2302/11 Adelaida Carrion, BRIANA [address] [facility] [address] Nurse Practitioner Family Medicine 01/27/24 Bong Rosado MA [address] [place] [address] Family Medicine 02/12/24 11/29/24 Juany Leggett PA [address] [place] [address] Physician Campus Security Director Neurology 07/26/24 documented as of this encounter
--- OUTSIDE RECORDS SUMMARY | 2025-01-09 07:07 | XMS_ITS | Clinical Summary ---
Author Organization [facility] Address [address] [address] Care Team Providers Care Net Ui Developer Name Role Phone Unavailable Primary Care Provider [...]
--- OUTSIDE RECORDS SUMMARY | 2025-01-09 07:07 | XMS_ITS | Encounter Summary ---
Author Organization [facility] Address [address] [place] [address] Care Team Providers Care Icer Machine Name Role Phone DanielaSaurav baezakayleen GRAHAM Unavailable [phone] Adelaida Carrion NP Unavailable [phone] José Luis Roberts MD Primary Care Provider Bong Rosado MA Unavailable [phone] Juany Leggett Unavailable Encounter Details Date Type Department Care Team (Late st Contact Info) Description 10/13/2024 Orders Only [facility] [address] [place] [address] Adelaida Carrion, UNDERWRITER MORTGAGE LOAN [address] [place] [address] Social History Tobacco Use Types Packs/Day Years [...] How often do you attend methodist or synagogue serv ices? Never 08/16/2023 Do [...] Recorded Patient Health Questionnaire-2 Score 2 09/21/2023 [facility] [place] of Occupat ional Health - Occupational Stress [...] Modality Radiographic Nelda ging us Adelaida Carrion UNDERWRITER MORTGAGE LOAN IMG XR PROCEDURES Final Result documented in this encounter Visit Diagnoses Not on filedocumented in this encounter Additional Health Concerns Assessment Noted Time PHQ-9 Depression Total Score: 8 05/18/19 24 5:00 PM EST documented as of this encounter Care Teams Icer Machine Relationship Specialty Start Date End Date José Luis Roberts MD [address] [place] [address] PCP - General Family Medicine 02/02/24 Miriam Suarez DO [address] [place] [address] Referring Physician Neurology 06/29/23 Adelaida Carrion NP [address] [place] [address] Nurse Practitioner Family Medicine 01/27/24 Bong Rosado MA [address] [place] [address] Family Medicine 02/12/24 11/29/24 Juany Leggett PA [address] [place] [address] Physician Machine Setter Automatic Neurology 07/26/24 documented as of this encounter
--- OUTSIDE RECORDS SUMMARY | 2025-01-09 07:07 | XMS_ITS | Encounter Summary ---
Author Organization [facility] Address [address] [place] [address] Care Team Providers Care Aquatic Habitat Biologist Name Role Phone Adelaida Carrion NP Unavailable [phone] José Luis Roberts MD Primary Care Provider [phone] José Luis Roberts MD Primary Care Provider +-[phone] [phone] Miriam Suarez DO Unavailable [phone] Aida, Ardana PRICE CHECKER Unavailable Unavailable Aida Ardana PRICE CHECKER Unavailable Unavailable Diana De Leon PRICE CHECKER Unavailable Unallocated, Noms Provider Primary Care Provi kellee Adelaida Carrion NP Unavailable [phone] José Luis Roberts MD Primary Care Provider +[phone] Bong Rosado MA Unavailable [phone] Juany Leggett Unavailable Encounter Details Date Type Department Care Team (Late st Contact Info) Description 11/14/2022 Abstract [facility] [address] [place] [address] Travon Hines PA [address] [place] [address] Social History Tobacco Use Types [...] on filedocumented in this encounter Care Teams Aquatic Habitat Biologist Relationship Specialty Start Date End Date José Luis Roberts MD PCP - General Family Medicine 10/14/22 05/17/23 José Luis Roberts MD PCP - General Family Medicine 05/18/23 01/26/24 Unallocated, Johan Sierra MD [address] [address] PCP - General Family Medicine 01/27/24 02/01/24 José Luis Roberts MD PCP - General Family Medicine 02/02/24 Adelaida Carrion NP Referring Physician Nurse Practitioner 10/14/22 Miriam Suarez DO [address] [place] [address] Referring Physician Neurology 06/29/23 Mathew Parra LPN Registered Nurse Family Medicine 07/07/23 07/08/23 Mathew Parra LPN Licensed Practical Nurse Family Medicine 07/23/23 Diana De Leon LPN [address] [place] [address] Licensed Practical Nurse Family Medicine 12/18/2302/11 Adelaida Carrion NP [address] [place] [address] Nurse Practitioner Family Medicine 01/27/24 Bong Rosado, [place] [address] [place] [address] Family Medicine 02/12/24 11/29/24 Juany Leggett PA [address] [place], [place] [address] Physician Commercial Loan Analyst Neurology 07/26/24 documented as of this encounter
--- OUTSIDE RECORDS SUMMARY | 2025-01-09 07:07 | XMS_ITS | Encounter Summary ---
Author Organization [facility] Address [address] [place] [address] Care Team Providers Care Stock Receiver Name Role Phone Miriam Suarez Unavailable [phone] Adelaida Carrion NP Unavailable [phone] José Luis Roberts MD Primary Care Provider [phone] Bong Rosado MA Unavailable [phone] Juany Leggett Unavailable Encounter Details Date Type Department Care Team (Late st Contact Info) Description 10/10/2024 Abstract [facility] [address] [place] [address] Adelaida Carrion, BRIANA [address] [place] [address] Social History Tobacco Use Types Packs/Day Years [...] declined 08/16/2023 How often do you attend yazdanism or spiritism serv ices? Never 08/16/2023 Do you belong to any clubs o r organizations such as yazdanism groups, unions, fraternal or athletic groups, or [...] Recorded Patient Health Questionnaire-2 Score 2 09/21/2023 [facility] [place] of Occupat ional Health - Occupational Stress [...] documented as of this encounter Care Teams Stock Receiver Relationship Specialty Start Date End Date José Luis Roberts MD [address] [place] [address] PCP - General Family Medicine 02/02/24 Miriam Suarez DO [address] [place] [address] Referring Physician Neurology 06/29/23 Adelaida Carrion NP [address] [place] [address] Nurse Practitioner Family Medicine 01/27/24 Bong Rosado MA [address] [place] [address] Family Medicine 02/12/24 11/29/24 Juany Leggett PA [address] [place] [address] Physician Coding Consultant Neurology 07/26/24 documented as of this encounter
--- OUTSIDE RECORDS SUMMARY | 2025-01-09 07:07 | XMS_ITS | Encounter Summary ---
Author Organization [facility] Address [address] [place] [address] Care Team Providers Care Executive Services Administrator Name Role Phone Adelaida Carrion NP Unavailable [phone] José Luis Roberts MD Primary Care Provider [phone] Miriam Suarez DO Unavailable [phone] Mathew Parra WOOL GROWER Unavailable Unavailable Diana De Leon WOOL GROWER Unavailable Unallocated, Noms Provider Primary Care Provi kellee Adelaida Carrion NP Unavailable [phone] José Luis Roberts MD Primary Care Provider [phone] Bong Rosado MA Unavailable [phone] Juany Leggett Unavailable Encounter Details Date Type Department Care Team (Late st Contact Info) Description 07/14/2023 Orders Only [facility] [address] [place] [address] Adelaida Carrion NP [address] [place] [address] Social History Tobacco Use Types [...] Never 05/18/2023 How often do you attend rastafarian or jewish serv ices? Never 05/18/2023 Do you belong [...] Recorded Patient Health Questionnaire-2 Score 0 07/07/2023 [facility] Occupat [facility] - Occupational Stress [...] in a nursing home (including now)? No 05/18/2023 Comments Unknown [...] Modality Chest Radiographic Nelda ging Adelaida Carrion DIRECT SERVICE WORKER IMG XR PROCEDURES Final Result documented in this encounter Visit Diagnoses Not on filedocumented in this encounter Additional Health Concerns Assessment Noted Time PHQ-9 Depression Total Score: 8 05/18/19 24 5:00 PM EST documented as of this encounter Care Teams Executive Services Administrator Relationship Specialty Start Date End Date José Luis Roberts MD PCP - General Family Medicine 05/18/23 01/26/24 Unallocated, Johan Sierra MD [address] [place] [address] PCP - General Family Medicine 01/27/24 02/01/24 José Luis Roberts MD PCP - General Family Medicine 02/02/24 Adelaida Carrion NP Referring Physician Nurse Practitioner 10/14/22 Miriam Suarez DO [address] [place] [address] Referring Physician Neurology 06/29/23 Mathew Parra LPN Licensed Practical Nurse Family Medicine 07/23/23 Diana De Leon LPN [address] [place] [address] Licensed Practical Nurse Family Medicine 12/18/2302/11 Adelaida Carrion NP [address] [facility] [place] [address] Nurse Practitioner Family Medicine 01/27/24 Bong Rosado, [place] [address] [place] [address] Family Medicine 02/12/24 11/29/24 Juany Leggett PA [address] [place] [address] Physician Electronic Publisher Neurology 07/26/24 documented as of this encounter
--- OUTSIDE RECORDS SUMMARY | 2025-01-09 07:08 | XMS_ITS | Encounter Summary ---
Author Organization [facility] Address [address] [place] [address] Care Team Providers Care Regional Office Coordinator Name Role Phone Adelaida Carrion NP Unavailable [phone] José Luis Roberts MD Primary Care Provider [phone] Miriam Suarez DO Unavailable [phone] Diana De Leon LPN Unavailable Unallocated, Noms Provider Primary Care Provi kellee Adelaida Carrion NP Unavailable [phone] José Luis Roberts MD Primary Care Provider [phone] Bong Rosado MA Unavailable [phone] Juany Leggett Unavailable Encounter Details Date Type Department Care Team (Late st Contact Info) Description 01/21/2024 Orders Only [facility] [address] [place] [address] Adelaida Carrion NP [address] [place] [address] Social History Tobacco Use Types [...] declined 08/16/2023 How often do you attend holiness or scientologist serv ices? Never 08/16/2023 Do [...] Score 2 09/21/2023 [facility] of Occupat ional Health - Occupational [...] Laterality Modality Radiographic Nelda ging Adelaida Carrion BUFFER COPPER IMG XR PROCEDURES Final Result documented in this encounter Visit Diagnoses Not on filedocumented in this encounter Additional Health Concerns Assessment Noted Time PHQ-9 Depression Total Score: 8 05/18/19 24 5:00 PM EST documented as of this encounter Care Teams Regional Office Coordinator Relationship Specialty Start Date End Date José Luis Roberts MD PCP - General Family Medicine 05/18/23 01/26/24 Unallocated, Noms MD Mariela [address] [place] [address] PCP - General Family Medicine 01/27/24 02/01/24 José Luis Roberts MD PCP - General Family Medicine 02/02/24 Adelaida Carrion NP Referring Physician Nurse Practitioner 10/14/22 Miriam Suarez DO [address] [place] [address] Referring Physician Neurology 06/29/23 Diana De Leon LPN [address] [place] [address] Licensed Practical Nurse Family Medicine 12/18/2302/11 Adelaida Carrion NP [address] [place] [address] Nurse Practitioner Family Medicine 01/27/24 Bong Rosado MA [address] [place] [address] Family Medicine 02/12/24 11/29/24 Juany Leggett PA [address] [place] [address] Physician Audio Production Engineer Neurology 07/26/24 documented as of this encounter
--- OUTSIDE RECORDS SUMMARY | 2025-01-09 07:08 | XMS_ITS | Encounter Summary ---
Author Organization [facility] Address [address] [place] [address] Care Team Providers Care Business Rules Analyst Name Role Phone Adelaida Carrion NP Unavailable [phone] José Luis Robrets MD Primary Care Provider Miriam Suarez DO Unavailable [phone] Mathew Parra BASEBALL SCOUT Unavailable Unavailable Mathew Parra BASEBALL SCOUT Unavailable Unavailable [place] De Leon BASEBALL SCOUT Unavailable Unallocated, Noms Provider Primary Care Provi kellee Adelaida Carrion NP Unavailable [phone] José uLis Roberts MD Primary Care Provider Bong Rosado MA Unavailable [phone] Juany Leggett Unavailable Encounter Details Date Type Department Care Team (Late st Contact Info) Description 05/19/2023 Clinisync Result Encounter [facility] External Department Unsolicited Adelaida Carrion NP [address] [place] [address] Social History Tobacco Use Types Packs/Day Years [...] Never 05/18/2023 How often do you attend latter-day or buddhist serv ices? Never 05/18/2023 Do you belong [...] Recorded Patient Health Questionnaire-2 Score 1 05/18/2023 [facility] [...] slept in a halfway (including now)? No 05/18/2023 Comments Unknown Sex [...] AM EST Narrative 05/19/2023 9:34 AM EST [address] [address] XRay Report Signed Patient: NASIM INGRAM MR#: [id number] : 1960 Acct:[id number] Age/Sex: 62 / F ADM Date: 05/19/23 Loc: RAD Attending Dr: Adelaida Carrion CARDIAC TECH Ordering Physician: Adelaida Carrion NP Date of Service: 05/19/23 Procedure(s): XR hip LT min 2V Accession Number(s): [id number] cc: Adelaida Carrion NP [place] [address] Patient Name: NASIM INGRAM MRN: [id number] date: 1960 Sex: F Assigned Patient Location: [facility] Current Patient Location: [facility] Accession/Order Number: [id number] Exam Date: 05/19/2023 07:50 Report Date: 05/19/2023 [...] M.D. Signed By: 05/19/23933 DD/ 0 TD/TT: Transportation Aid: Procedure Note Radiology, Radiologist, - 05/19/[address] [address] XRay Report Signed Patient: NASIM INGRAM LMR#: [id number] : 1960cct:[id number] Age/Sex: 62 / FADM Date: 05/19/23 Loc: RAD Attending Dr: Adelaida Carrion CARDIAC TECH Ordering Physician: Adelaida Carrion NP Date of Service: 05/19/23 Procedure(s): XR hip LT min 2V Accession Number(s): [id number] cc: Adelaida Carrion NP [place] [id number] Patient Name: NASIM INGRAM MRN: [id number] date: 1960 Sex: F Assigned Patient Location: [facility] Current Patient Location: [facility] Accession/Order Number: [id number] Exam Date: 05/19/2023 07:50 Report Date: 05/19/2023 [...] Maciel M.D. Signed By:05/19/23933 DD/ 0 TD/TT: Transportation Aid: us Adelaida Carrion CARDIAC TECH [facility] Final Result documented in this encounter Visit Diagnoses Not on filedocumented in this encounter Additional Health Concerns Assessment Noted Time PHQ-9 Depression Total Score: 8 05/18/19 24 5:00 PM EST documented as of this encounter Care Teams Business Rules Analyst Relationship Specialty Start Date End Date José Luis Roberts MD PCP - General Family Medicine 05/18/23 01/26/24 Unallocated, Noms MD Mariela [address] [place] [address] PCP - General Family Medicine 01/27/24 02/01/24 José Luis Roberts MD PCP - General Family Medicine 02/02/24 Adelaida Carrion NP Referring Physician Nurse Practitioner 10/14/22 Miriam Suarez DO [address] [place] [id number] Referring Physician Neurology 06/29/23 Mathew Parra LPN Registered Nurse Family Medicine 07/07/23 07/08/23 Mathew Parra LPN Licensed Practical Nurse Family Medicine 07/23/23 Diana De Leon LPN [address] [place] [address] Licensed Practical Nurse Family Medicine 12/18/2302/11 Adelaida Carrion NP [address] [place] [address] Nurse Practitioner Family Medicine 01/27/24 Bong Rosado MA [address] [place] [address] Family Medicine 02/12/24 11/29/24 Juany Leggett PA [address] [place] [address] Physician Cytogenetic Technologist Neurology 07/26/24 documented as of this encounter
--- OUTSIDE RECORDS SUMMARY | 2025-01-09 07:08 | XMS_ITS | Encounter Summary ---
Author Organization [facility] Address [address] [place] [address] Care Team Providers Care Credit Collections Specialist Name Role Phone Miriam Suarez DO Unavailable [phone] Adelaida Carrion NP Unavailable [phone] José Luis Roberts MD Primary Care Provider [phone] Juany Leggett Unavailable Encounter Details Date Type Department Care Team (Latest Contact Info) Description 12/26/2024 Travel Social History Tobacco Use Types Packs/Day [...] How often do you attend jewish or baptism serv ices? Never 08/16/2023 Do [...] Recorded Patient Health Questionnaire-2 Score 2 09/21/2023 [facility] - Occupational Stress Questionnaire Answer Date [...] as of this encounter Care Teams Credit Collections Specialist Relationship Specialty Start Date End Date José Luis Roberts MD [address] [place] [address] PCP - General Family Medicine 02/02/24 Miriam Suarez DO [address] [place] [address] Referring Physician Neurology 06/29/23 Adelaida Carrion NP [address] [place] [address] Nurse Practitioner Family Medicine 01/27/24 Juany Leggett PA [address] [place] [address] Physician Manager Of Finance Neurology 07/26/24 documented as of this encounter
--- OUTSIDE RECORDS SUMMARY | 2025-01-09 07:08 | XMS_ITS | Encounter Summary ---
Author Organization [facility] Address [address] [place] [address] Care Team Providers Care Main Galley Scullion Name Role Phone Adelaida Carrion NP Unavailable [phone] José Luis Roberts MD Primary Care Provider [phone] Miriam Suarez DO Unavailable [phone] Mathew Parra PATIENT CARE REPRESENTATIVE Unavailable Unavailable Diana De Leon LPN Unavailable Unallocated, Noms Provider Primary Care Provi kellee Adelaida Carrion NP Unavailable [phone] José Luis Roberts MD Primary Care Provider [phone] Bong Rosado MA Unavailable [phone] Juany Leggett Unavailable Encounter Details Date Type Department Care Team (Late st Contact Info) Description 08/19/2023 Clinisync Result Encounter [facility] External Department Unsolicited Adelaida Carrion NP [address] [place] [address] Social History Tobacco Use Types Packs/Day Years [...] How often do you attend yazdanism or synagogue serv ices? Never 08/16/2023 Do [...] Recorded Patient Health Questionnaire-2 Score 0 08/17/2023 [facility] of Occupat ional Health - Occupational [...] AM EDT Narrative 08/19/2023 6:09 [place] [address] CT Scan Report Signed Patient: NASIM INGRAM MR#: [id number] : 1960 Acct:[id number] Age/Sex: 62 / F ADM Date: 08/18/23 Loc: CT Attending Dr: Adelaida Carrion NP Ordering Physician: Adelaida Carrion NP Date of Service: 08/18/23 Procedure(s): CT lung screening low-dose Accession Number(s): [id number] cc: Adelaida Carrion NP [place] [address] Patient Name: NASIM INGRAM MRN: [id number] date: 1960 Sex: F Assigned Patient Location: CT Current Patient Location: Accession/Order Number: [id number] Exam Date: 08/18/2023 13:28 Report Date: 08/19/2023 [...] M.D. Signed By: 08/19/23608 DD/ 5 TD/TT: Room Clerk: Procedure Note Radiology, Radiologist, MD - 08/19/2023 [place] [address] CT Scan Report Signed Patient: NASIM INGRAM LMR#: [id number] : 1960cct:[id number] Age/Sex: 62 / FADM Date: 08/18/23 Loc: CT Attending Dr: Adelaida Carrion NP Ordering Physician: Adelaida Carrion NP Date of Service: 08/18/23 Procedure(s): CT lung screening low-dose Accession Number(s): [id number] cc: Adelaida Carrion NP [place] [address] Patient Name: NASIM INGRAM MRN: [facility]:[id number] date: 1960 Sex: F Assigned Patient Location: CT Current Patient Location: Accession/Order Number: [id number] Exam Date: 08/18/2023 13:28 Report Date: 08/19/2023 [...] Dhillon M.D. Signed By:08/19/23608 DD/ 5 TD/TT: Room Clerk: Adelaida Carrion NP [facility] Final Result documented in this encounter Visit Diagnoses Not on filedocumented in this encounter Additional Health Concerns Assessment Noted Time PHQ-9 Depression Total Score: 8 05/18/19 24 5:00 PM EST documented as of this encounter Care Teams Main Galley Scullion Relationship Specialty Start Date End Date José Luis Roberts MD PCP - General Family Medicine 05/18/23 01/26/24 Unallocated, Nomluly Sierra MD [address] [place] [address] PCP - General Family Medicine 01/27/24 02/01/24 José Luis Roberts MD PCP - General Family Medicine 02/02/24 Adelaida Carrion NP Referring Physician Nurse Practitioner 10/14/22 Miriam Suarez DO [address] [place], [place] [address] Referring Physician Neurology 06/29/23 Mathew Parra LPN Licensed Practical Nurse Family Medicine 07/23/23 Diana De Leon LPN [address] [place] [address] Licensed Practical Nurse Family Medicine 12/18/2302/11 Adelaida Carrion NP [address] [facility] [place] [address] Nurse Practitioner Family Medicine 01/27/24 Bong Rosado, [place] [address] [place] [address] Family Medicine 02/12/24 11/29/24 Juany Leggett PA [address] [place], [place] [address] Physician Registered Dietetic Technician Neurology 07/26/24 documented as of this encounter
--- OUTSIDE RECORDS SUMMARY | 2025-01-09 07:08 | XMS_ITS | Encounter Summary ---
Author Organization [facility] Address [address] [place] [address] Care Team Providers Care Silk Conditioner Name Role Phone Adelaida Carrion NP Unavailable [phone] José Luis Roberts MD Primary Care Provider [phone] José Luis Roberts MD Primary Care Provider [phone] Miriam Suarez DO Unavailable [phone] Aida, Ardana CENA Unavailable Unavailable Fran Parradana CENA Unavailable Unavailable Diana De Leon CENA Unavailable Unallocated, Noms Provider Primary Care Provi kellee Adelaida Carrion NP Unavailable José Luis Roberts MD Primary Care Provider [phone] Bong Rosado MA Unavailable [phone] Juany Leggett Unavailable Encounter Details Date Type Department Care Team (Late st Contact Info) Description 04/08/2023 Orders Only [facility] [address] [place] [address] Adelaida Carrion NP [address] [place] [address] Social History Tobacco Use Types Packs/Day Years [...] Test (03/23/2023 2:45 PM EST) Adelaida Carrion JET BLADE POLISHER LAB BLOOD ORDERABLES Final Resu lt documented in this encounter Visit Diagnoses Not on filedocumented in this encounter Care Teams Silk Conditioner Relationship Specialty Start Date End Date José Luis Roberts MD PCP - General Family Medicine 10/14/22 05/17/23 José Luis Roberts MD PCP - General Family Medicine 05/18/23 01/26/24 Unallocated, Familias MD Mariela [address] [place] [address] PCP - General Family Medicine 01/27/24 02/01/24 José Luis Roberts MD PCP - General Family Medicine 02/02/24 Adelaida Carrion NP Referring Physician Nurse Practitioner 10/14/22 Miriam Suarez DO [address] [place] [address] Referring Physician Neurology 06/29/23 Mathew Parra LPN Registered Nurse Family Medicine 07/07/23 07/08/23 Mathew Parra LPN Licensed Practical Nurse Family Medicine 07/23/23 Diana De Leon LPN [address] [place] [address] Licensed Practical Nurse Family Medicine 12/18/2302/11 Adelaida Carrion NP [address] [place] [address] Nurse Practitioner Family Medicine 01/27/24 Bong Rosado, [place] [address] [place] [address] Family Medicine 02/12/24 11/29/24 Juany Leggett PA [address] [place], [place] [address] Physician Dielectric Tester Neurology 07/26/24 documented as of this encounter
--- OUTSIDE RECORDS SUMMARY | 2025-01-09 07:08 | XMS_ITS | Encounter Summary ---
Author Organization [facility] Address [address] [place] [address] Care Team Providers Care Account Executive Metalworking Name Role Phone Adelaida Carrion NP Unavailable [phone] José Luis Roberts MD Primary Care Provider [phone] José Luis Roberts MD Primary Care Provider [phone] Miriam Suarez DO Unavailable [phone] [place], Ardana SENIOR DIRECTOR INSIGHT Unavailable Unavailable Aida [place] SENIOR DIRECTOR INSIGHT Unavailable Unavailable Diana De Leon SENIOR DIRECTOR INSIGHT Unavailable Unallocated, Noms Provider Primary Care Provi kellee Adelaida Carrion NP Unavailable [phone] José Luis Roberts MD Primary Care Provider [phone] Bong Rosado MA Unavailable [phone] Juany Leggett Unavailable Encounter Details Date Type Department Care Team (Late st Contact Info) Description 03/26/2023 Clinisync Result Encounter [facility] External Department Unsolicited Adelaida Carrion NP [address] [place] [address] Social History Tobacco Use Types Packs/Day Years [...] AM EST Narrative 03/26/2023 8:17 AM EST [address] [address] XRay Report Signed Patient: NASIM INGRAM MR#: [id number] : 1960 Acct:[id number] Age/Sex: 62 / F ADM Date: 03/25/23 Loc: [facility] Attending Dr: Adelaida Carrion FUNERAL HOME GENERAL MANAGER Ordering Physician: Adelaida Carrion NP Date of Service: 03/25/23 Procedure(s): XR foot LT min 3V Accession Number(s): [id number] cc: Adelaida Carrion NP [address] [address] Patient Name: NASIM INGRAM MRN: [id number] date: 1960 Sex: F Assigned Patient Location: RAD Current Patient Location: Accession/Order Number: [id number] Exam Date: 03/25/2023 15:34 Report Date: 03/26/2023 08:14 At the request of: ADELAIDA CARRION Procedure: XR foot LT min 3V PROCEDURE: XR foot LT min 3V DATE: 03/25/2023 2:34 PM RUBBER STAMP DIE INSPECTOR COMPARISONS: None CLINICAL INDICATION: left foot pain [...] M.D. Signed By: 03/26/23816 DD/ 3 TD/TT: Horse Wrangler: Procedure Note Radiology, Radiologist, MD - 03/26/2023 [place] [address] XRay Report Signed Patient: NASIM INGRAM LMR#: [id number] : 1960cct:[id number] Age/Sex: 62 / FADM Date: 03/25/23 Loc: [facility] Attending Dr: Adelaida Carrion NP Ordering Physician: Adelaida Carrion NP Date of Service: 03/25/23 Procedure(s): XR foot LT min 3V Accession Number(s): [id number] cc: Adelaida Carrion NP [address] [address] Patient Name: NASIM INGRAM MRN: [id number] date: 1960 Sex: F Assigned Patient Location: [facility] Current Patient Location: Accession/Order Number: [id number] Exam Date: 03/25/2023 15:34 Report Date: 03/26/2023 08:14 At the request of: ADELAIDA CARRION Procedure: XR foot LT min 3V PROCEDURE: XR foot LT min 3V DATE: 03/25/2023 2:34 PM RUBBER STAMP DIE INSPECTOR COMPARISONS: None CLINICAL INDICATION: left foot pain [...] Harris M.D. Signed By:03/26/23816 DD/ 3 TD/TT: Horse Wrangler: us Adelaida Carrion FUNERAL HOME GENERAL MANAGER [facility] Final Result documented in this encounter Visit Diagnoses Not on filedocumented in this encounter Care Teams Account Executive Metalworking Relationship Specialty Start Date End Date José Luis Roberts MD PCP - General Family Medicine 10/14/22 05/17/23 José Luis Roberts MD PCP - General Family Medicine 05/18/23 01/26/24 Unallocated, Noms ProviderMD [address] [place] [address] PCP - General Family Medicine 01/27/24 02/01/24 José Luis Roberts MD PCP - General Family Medicine 02/02/24 Adelaida Carrion NP Referring Physician Nurse Practitioner 10/14/22 Miriam Suarez DO [address] [place] [address] Referring Physician Neurology 06/29/23 Mathew Parra LPN Registered Nurse Family Medicine 07/07/23 07/08/23 Mathew Parra LPN Licensed Practical Nurse Family Medicine 07/23/23 Diana De Leon LPN [address] [place] [address] Licensed Practical Nurse Family Medicine 12/18/2302/11 Adelaida Carrion NP [address] [place] [address] Nurse Practitioner Family Medicine 01/27/24 Bong Rosado [place] [address] [place] [address] Family Medicine 02/12/24 11/29/24 Juany Leggett PA [address] [place] [address] Physician Event Security Officer Neurology 07/26/24 documented as of this encounter
--- OUTSIDE RECORDS SUMMARY | 2025-01-09 07:08 | XMS_ITS | Encounter Summary ---
Author Organization [facility] Address [address] [place] [address] Care Team Providers Care Clinical Support Manager Name Role Phone Adelaida Carrion NP Unavailable [phone] José Luis Roberts MD Primary Care Provider Miriam Suarez DO Unavailable [phone] Mathew Parra BRIDGE BUILDER Unavailable Unavailable Diana De Leon LPN Unavailable Unallocated, Noms Provider Primary Care Provi kellee Adelaida Carrion NP Unavailable [phone] José Luis Roberts MD Primary Care Provider [phone] Bong Rosado MA Unavailable [phone] Juany Leggett Unavailable Encounter Details Date Type Department Care Team (Late st Contact Info) Description 09/01/2023 Orders Only [facility] [address] [place] [address] Shaikh Alberto MD [address] [place] [address] Social History Tobacco Use Types [...] How often do you attend hoahaoism or jewish serv ices? Never 08/16/2023 Do [...] Recorded Patient Health Questionnaire-2 Score 0 08/17/2023 [facility] Occupat ional Health - [...] as of this encounter Care Teams Clinical Support Manager Relationship Specialty Start Date End Date José Luis Rboerts MD PCP - General Family Medicine 05/18/23 01/26/24 Unallocated, Noms MD Mariela [facility] [place] [address] PCP - General Family Medicine 01/27/24 02/01/24 José Luis Roberts MD PCP - General Family Medicine 02/02/24 Adelaida Carrion NP Referring Physician Nurse Practitioner 10/14/22 Miriam Suarez DO [address] [place] [address] Referring Physician Neurology 06/29/23 Mathew Parra LPN Licensed Practical Nurse Family Medicine 07/23/23 Diana De Leon LPN [address] [place] [address] Licensed Practical Nurse Family Medicine 12/18/2302/11 Adelaida Carrion NP [address] [place] [address] Nurse Practitioner Family Medicine 01/27/24 Bong Rosado, [place] [address] [place] [address] Family Medicine 02/12/24 11/29/24 Juany Leggett PA [address] [place] [address] Physician President Practicing Urologist Neurology 07/26/24 documented as of this encounter
--- OUTSIDE RECORDS SUMMARY | 2025-01-09 07:08 | XMS_ITS | Encounter Summary ---
Author Organization [facility] Address [address] [place] [address] Care Team Providers Care Preload Supervisor Name Role Phone Miriam Suarez Unavailable [phone] Adelaida Carrion NP Unavailable [phone] José Luis Roberts MD Primary Care Provider Bong Rosado MA Unavailable [phone] Juany Leggett Unavailable Encounter Details Date Type Department Care Team (Late st Contact Info) Description 11/16/2024 Abstract [facility] [address] [place] [address] Adelaida Carrion, BRIANA [address] [place] [address] Social History Tobacco Use Types Packs/Day Years [...] How often do you attend restorationism or worship serv ices? Never 08/16/2023 Do [...] Recorded Patient Health Questionnaire-2 Score 2 09/21/2023 [facility] [place] of Occupat ional Health - Occupational Stress [...] documented as of this encounter Care Teams Preload Supervisor Relationship Specialty Start Date End Date José Luis Roberts MD [address] [place] [address] PCP - General Family Medicine 02/02/24 Miriam Suarez DO [address] [place] [address] Referring Physician Neurology 06/29/23 Adelaida Carrion NP [address] [place] [address] Nurse Practitioner Family Medicine 01/27/24 Bong Rosado MA [address] [place] [address] Family Medicine 02/12/24 11/29/24 Juany Leggett PA [address] [place] [address] Physician Make Up Editor Neurology 07/26/24 documented as of this encounter
--- OUTSIDE RECORDS SUMMARY | 2025-01-09 07:08 | XMS_ITS | Encounter Summary ---
Author Organization [facility] Address [address] [place] [address] Care Team Providers Care Pelt Grader Name Role Phone Adelaida Carrion NP Unavailable [phone] José Luis Roberts MD Primary Care Provider [phone] José Luis Roberts MD Primary Care Provider [phone] Miriam Suarez DO Unavailable [phone] Aida, Ardana STONE LAYER Unavailable Unavailable Aida Ardana STONE LAYER Unavailable Unavailable Diana De Leon STONE LAYER Unavailable Unallocated, [facility] Provider Primary Care Provi kellee Adelaida Carrion NP Unavailable [phone] José Luis Roberts MD Primary Care Provider [phone] Bong Rosado MA Unavailable [phone] Juany Leggett Unavailable Encounter Details Date Type Department Care Team (Late st Contact Info) Description 03/25/2023 Abstract [facility] [address] [place] [address] Adelaida Carrion NP [address] [place] [address] Social History Tobacco Use Types Packs/Day Years [...] on filedocumented in this encounter Care Teams Pelt Grader Relationship Specialty Start Date End Date José Luis Roberts MD PCP - General Family Medicine 10/14/22 05/17/23 José Luis Roberts MD PCP - General Family Medicine 05/18/23 01/26/24 Unallocated, Noms MD Mariela [address] [place] [address] PCP - General Family Medicine 01/27/24 02/01/24 José Luis Roberts MD PCP - General Family Medicine 02/02/24 Adelaida Carrion NP Referring Physician Nurse Practitioner 10/14/22 Miriam Suarez DO [address] [place] [address] Referring Physician Neurology 06/29/23 Mathew Parra LPN Registered Nurse Family Medicine 07/07/23 07/08/23 Mathew Parra LPN Licensed Practical Nurse Family Medicine 07/23/23 Diana De Leon, ADRIAN [address] [place] [address] Licensed Practical Nurse Family Medicine 12/18/2302/11 Adelaida Carrion NP [address] [place] [address] Nurse Practitioner Family Medicine 01/27/24 Bong Rosado, [place] [address] [place] [address] Family Medicine 02/12/24 11/29/24 Juany Leggett PA [address] [place] [address] Physician Clinical Nursing Manager Neurology 07/26/24 documented as of this encounter
--- OUTSIDE RECORDS SUMMARY | 2025-01-09 07:08 | XMS_ITS | Encounter Summary ---
Author Organization [facility] Address [address] [place] [address] Care Team Providers Care Building Maintenance Worker Name Role Phone Miriam Suarez Unavailable [phone] Adelaida Carrion NP Unavailable [phone] José Luis Roberts MD Primary Care Provider Juany Leggett Unavailable Encounter Details Date Type Department Care Team (Late st Contact Info) Description 12/26/2024 Bamboo flowsheet [facility] [address] [facility] [address] [place] [address] Moses Stone PA [address] [address] Social History Tobacco Use Types Packs/Day Years [...] How often do you attend anabaptist or holiness serv ices? Never 08/16/2023 Do [...] documented as of this encounter Care Teams Building Maintenance Worker Relationship Specialty Start Date End Date José Luis Roberts MD [address] [place] [address] PCP - General Family Medicine 02/02/24 Miriam Suarez DO [address] [place], [place] [id number] Referring Physician Neurology 06/29/23 Adelaida Carrion NP [address] [place] [address] Nurse Practitioner Family Medicine 01/27/24 Juany Leggett PA [address] [place] [address] Physician 911 Operator Neurology 07/26/24 documented as of this encounter
--- OUTSIDE RECORDS SUMMARY | 2025-01-09 07:08 | XMS_ITS | Clinical Summary ---
Author Organization [employer] [facility] [employer] Address [id number] [address] [place] [address] Care Team Providers Care Fluorescent Lamp Replacer Name Role Phone Adelaida Carrion APRN-PARTS DESIGNER Primary Care Provider Medications gabapentin (NEURONTIN) 600 mg tabletIndicatio ns:Neuropathy 1 tablet po in the am (600mg) 1 tablet po at noon (600mg) an 2 tablets po at bedtime (1200mg) 120 tablet 5 05/04/2018 Active Encounters Date Type Department Care Team Description 10/08/2024 12:51 PM EDT - 10/09/2024 6:17 PM EDT Emergency [facility] [address] [place] [address] Discharge Disposition: Telemedicine Discharge from [...] (2 of 2) 10/12/2023 08/17/2023 COVID-19 Vaccine (2024-2 6 season) 2024 02/13/2023, 03/02/2021, 08/24/2020, Additional history exists Influenza Vaccine 2024 01/28/2024, , 05/28/2018 DTaP,Tdap and Td Vaccines (2 - Tdap) 02/20/2032 02/19/2022 [employer] Devices Not on file Insurance [place] [address] Care Teams Fluorescent Lamp Replacer Relationship Specialty Start Date End Date Adelaida Carrion, FRAME STYLIST-PARTS DESIGNER PCP - General Nurse Practitioner 12/10/16
--- OUTSIDE RECORDS SUMMARY | 2025-01-09 07:08 | XMS_ITS | Encounter Summary ---
Author Organization [facility] Address [address] [place] [address] Care Team Providers Care Manager Project Management Name Role Phone Miriam Suarez Unavailable [phone] Adelaida Carrion NP Unavailable [phone] José Luis Roberts MD Primary Care Provider Bong Rosado MA Unavailable [phone] Juany Leggett Unavailable Encounter Details Date Type Department Care Team (Late st Contact Info) Description 09/19/2024 Abstract [facility] [address] [place] [address] Adelaida Carrion, BRIANA [address] [place] [address] Social History Tobacco Use Types Packs/Day Years [...] How often do you attend tenriism or nondenominational serv ices? Never 08/16/2023 Do [...] Questionnaire-2 Score 2 09/21/2023 [facility] [place] of Occupat ional Health - Occupational Stress [...] as of this encounter Care Teams Manager Project Management Relationship Specialty Start Date End Date José Luis Roberts MD [address] [place] [address] PCP - General Family Medicine 02/02/24 Miriam Suarez DO [address] [place] [address] Referring Physician Neurology 06/29/23 Adelaida Carrion NP [address] [place] [address] Nurse Practitioner Family Medicine 01/27/24 Bong Rosado MA [address] [place] [address] Family Medicine 02/12/24 11/29/24 Juany Leggett PA [address] [place] [address] Physician Deburring Technician Neurology 07/26/24 documented as of this encounter
--- OUTSIDE RECORDS SUMMARY | 2025-01-09 07:08 | XMS_ITS | CCD ---
Author Organization [facility] Care Team Providers Care Mental Health Associate Name Role Phone EBRAHEIM, SUKI Admitting Unavailable EBRAHEIM, SUKI Attending Unavailable AICHHOLZ, ADELAIDA Referring Unavailable AICHHOLZ, ADELAIDA Primary Care Unavailable [facility] Procedure Practitioner Unavailab SUKI Jacob Surgeon Unavailable [facility] Procedure Practitioner Unavailab CHAPARRITA Goncalves Surgeon Unavailable BRIDGETTE MACEDO Admitting Unavailable BRIDGETTE MACEDO Attending Unavailable AICHHOLZ, ELECTION CLERK ADELAIDA Primary Care Unavailable NIXON ., DR FINA Iverson Admitting Unavailable NIXON ., DR FNIA Iverson Attending Unavailable AICHHOLZ, ELECTION CLERK ADELAIDA Primary Care Unavailable MCDANIEL ., ZELDA Consulting Unavailable LAKSHMIPATHY ., NARENDRANATH Consulting Paula vailable LAKSHMIPATHY ., NARENDRANATH Admitting Paula vailable LAKSHMIPATHY ., NARENDRANATH Attending Paula vailable AICHHOLZ, ELECTION CLERK ADELAIDA Primary Care Unavailable LAKSHMIPATHY ., NARENDRANATH Consulting Paula vailable AICHHOLZ, ELECTION CLERK ADELAIDA Primary Care Unavailable MARKER ., DR CHAUDHRY Admitting Unavailable MARKER ., DR CHAUDHRY Attending Unavailable MARKER ., DR CHAUDHRY Consulting Unavailable AICHHOLZ, ELECTION CLERK ADELAIDA Admitting Unavailable AICHHOLZ, ELECTION CLERK ADELAIDA Attending Unavailable AICHHOLZ, ELECTION CLERK ADELAIDA Primary Care Unavailable NIXON ., DR FINA Iverson Admitting Unavailable NIXON ., DR FINA Iverson Attending Unavailable AICHHOLZ, ELECTION CLERK ADELAIDA Primary Care Unavailable MCDANIEL ., ZELDA Consulting Unavailable NIXON ., DR FINA Iverson Admitting Unavailable NIXON ., DR FINA Iverson Attending Unavailable AICHHOLZ, ELECTION CLERK ADELAIDA Primary Care Unavailable MCDANIEL ., ZELDA Consulting Unavailable AICHHOLZ, ELECTION CLERK ADELAIDA Admitting Unavailable AICHHOLZ, ELECTION CLERK ADELAIDA Attending Unavailable AICHHOLZ, ELECTION CLERK ADELAIDA Primary Care Unavailable AICHHOLZ, ELECTION CLERK ADELAIDA Consulting Unavailable AICHOLZ, ELECTION CLERK ADELAIDA Admitting Unavailable AICHHOLZ, ELECTION CLERK ADELAIDA Attending Unavailable AICHOLZ, [facility] ADELAIDA Primary Care Unavailable AICHHOLZ, ELECTION CLERK ADELAIDA Consulting Unavailable MISC, DR COTE Admitting Unavailable MISC, DR COTE Attending Unavailable AICHOLZ, [facility] ADELAIDA Primary Care Unavailable AICHHOLZ, ELECTION CLERK ADELAIDA Consulting Unavailable ELYSSA, DR COTE Consulting Unavailable STARR, DR KINGSLEY Atkins Consulting Unavailable NIXON ., DR FINA Iverson Admitting Unavailable NIXON ., DR FINA Iverson Attending Unavailable AICHOLZ, [facility] ADELAIDA Primary Care Unavailable MCDANIEL ., ZELDA Consulting Unavailable NIXON ., DR FINA Iverson Admitting Unavailable NIXON ., DR FINA Iverson Attending Unavailable [facility] Primary Care Unavailable NIXON ., DR FINA Iverson Consulting Unavailable OMID LAY Consulting Unavailable NIXON ., DR FINA Iverson Admitting Unavailable NIXON ., DR FINA Iverson Attending Unavailable [facility], [facility] Primary Care Unavailable MCDANIEL ., ZELDA Consulting Unavailable [facility] Primary Care Unavailable HALKER ., ARIAN Admitting Unavailable HALKER ., ARIAN Attending Unavailable LAKSHMIPATHY ., NARENDRANATH Consulting Paula vailable HALKER ., ARIAN Consulting Unavailable LAKSHMIPATHY ., NARENDRANATH Admitting Paula vailable LAKSHMIPATHY ., NARENDRANATH Attending Paula vailable [facility], [facility] Primary Care Unavailable LAKSHMIPATHY ., NARENDRANATH Consulting Paula vailable AICHOLZ, ELECTION CLERK ADELAIDA Admitting Unavailable AICHOLZ, ELECTION CLERK ADELAIDA Attending Unavailable AICHOLZ, ELECTION CLERK ADELAIDA Primary Care Unavailable AICHHOLZ, ELECTION CLERK ADELAIDA Consulting Unavailable BRIDGETTE MACEDO Admitting Unavailable BRIDGETTE MACEDO Attending Unavailable AICHOLZ, ELECTION CLERK ADELAIDA Primary Care Unavailable STARR, DR KINGSLEY Atkins Consulting Unavailable BRIDGETTE MACEDO Consulting Unavailable GILMER NEVES Admitting Unavailable GILMER NEVES Attending Unavailable PURA, GILMER Consulting Unavailable AICHOLZ, ELECTION CLERK ADELAIDA Primary Care Unavailable AICHOLZ, ELECTION CLERK ADELAIDA Primary Care Unavailable DR WILLI RINALDI Admitting Unavailable DEEJAY, DR WILLI Atkins Attending Unavailable DR WILLI RINALDI Consulting Unavailable AICHOLZ, ELECTION CLERK ADELAIDA Primary Care Unavailable ALMAZ ., DANNY Admitting Unavailable ALMAZ ., DANNY Attending Unavailable DR KINGSLEY CLEMENTS Consulting Unavailable ALMAZ ., DANNY Consulting Unavailable LAKSHMIPATHY ., NARENDRANATH Admitting Paula vailable LAKSHMIPATHY ., NARENDRANATH Attending Paula vailable AICHHOLZ, ELECTION CLERK ADELAIDA Primary Care Unavailable AICHHOLZ, ELECTION CLERK ADELAIDA Admitting Unavailable AICHHOLZ, ELECTION CLERK ADELAIDA Attending Unavailable AICHHOLZ, ELECTION CLERK ADELAIDA Primary Care Unavailable AICHHOLZ, ELECTION CLERK ADELAIDA Admitting Unavailable AICHHOLZ, ELECTION CLERK ADELAIDA Attending Unavailable AICHHOLZ, ELECTION CLERK ADELAIDA Primary Care Unavailable AICHHOLZ, ELECTION CLERK ADELAIDA Consulting Unavailable ZIEBER, DR KINGSLEY Atkins Consulting Unavailable HALKER ., ARIAN Admitting Unavailable HALKER ., ARIAN Attending Unavailable AICHHOLZ, ELECTION CLERK ADELAIDA Primary Care Unavailable Aichholz, Adelaida J Primary Care Provider MD Gaudencio Monk Admit Provider [phone] MD Gaudencio Monk Attending Provider JOHANN Vieira Other Provider Unavailable JOHANN Pina Other Provider Unavailable JOHANN Hurtado Other Provider Unavailable JOHANN Crooks Other Provider Unavailable JOHANN Mejias Other Provider Unavailable JOHANN Kim Other Provider Unavailable MD Walker Pringle Other Provider Dilans, PIPE CHIPPER Adelaida Huddleston Other Provider DO Jessica Murillo Other Provider MD Obdulio Bragg Other Provider [phone] DO Joon Cristina Other Provider MD Torin Robert Other Provider [phone] MD Dawn Barrera Other Provider Karlene [...] Provider MD Jace Graham Attending Provider Sheyla [employer], Adelaida Unavailable José Luis Roberts MD Primary Care Provider Sheyla [employer], Adelaida Unavailable Daniela DO, Miriam Unavailable Moises CAMPBELL, Diana Unavailable Unavailable Unallocated , Familias Provider Primary Care Yadirai kellee Aicjosue [employer], Adelaida Unavailable José Luis Roberts MD Primary Care Provider Bong Rosado MA Unavailable Unavailable Aida CAMPBELL, Mathew Unavailable Unavailable Juany Yi Unavailable Bong Rosado MA Unavailable ADELAIDA CARRION J Primary Care Unavailable AKSHAT BLACKWELL Consulting Unavailable Giedraitis , Andrius Sarabiaytautargelia Attending Unavailable Giedraitis MD, Andrius Vytautargelia Attending Unavailable Giedraitis , Andrius Vytautargelia Attending Unavailable Giedraitis , Andrius Vytautas Attending Unavailable Giedraitis , Andrius Vytautas Attending Unavailable Giedraitis , Andrius Vytautas Attending Unavailable Giedraitis , Andrius Vytautargelia Attending Unavailable Aichholz [employer], Adelaida Unavailable José Luis Roberts MD Primary Care Provider [phone] Eduardo Monk Admitting Unavailab Eduardo Connolly Attending Unavailab le Adelaida Carrion Primary Care Unavailable Adelaida Carrion Primary Care Unavailable Rob Lake Attending Unavailable Malinda Rosales Consulting Unavailable Malik Mohamad Admitting Unavailable Denbesten, David Consulting Unavailable Daniela, Miriam Consulting Unavailable Miki Kingsley Consulting Unavailable Kar Burt Consulting Unavailab Dennis Hicks Consulting Unavailable Juany Caballero Consulting Unavailable Inna Melendez Consulting Unavailable Rocio Duncan Consulting Unavailable Chuck Hinkle Consulting Unavailable ADELAIDA CARRION Attending Unavailable JUANY LEGGETT Attending Unavailable JUANY LEGGETT Attending Unavailable YINGHADELAIDA ELLIS Attending Unavailable AICHHOLADELAIDA Barrett Attending Unavailable AICHHOLADELAIDA Barrett Attending Unavailable POCOS, HARRISON Shea Referring Unavailable POCOS, HARRISON Shea Attending Unavailable AICHHOLZ, ADELAIDA Attending Unavailable POCOS, HARRISON Shea Referring Unavailable POCOS, HARRISON Shea Attending Unavailable POCOS, HARRISON Shea Referring Unavailable SCOTT STONE Attending Unavailable AICHHOLZ, ADELAIDA Attending Unavailable AICHHOLZ, ADELAIDA Attending Unavailable AICHHOLZ, ADELAIDA Attending Unavailable LOWE, JUANY Attending Unavailable HILL, RACHEL Attending Unavailable DAVID FOSTER Attending Unavailable LOWE, JUANY Referring Unavailable AICHHOLZ, ADELAIDA Attending Unavailable HILL, RACHEL Referring Unavailable Allergies Allergy Classification Reported [...] 04-06-19 13 Unknown Reaction [facility] Repository (20 sources) levETIRAcetam; Translations: [levetiracetam] Drug Allergy 12-13-19 22 Hallucinations , Other [facility] (20 sources) milnacipran; Translations: [milnacipran] Drug Allergy 12-13-19 22 hives, Hallucinations , Other, Unknown [facility] (20 sources) Prochlorperazin e; Translations: [prochlorperazi ne] Drug Allergy 12-13-19 22 Unknown, Other [facility] (2 sources) Penicillin G Drug Allergy as a child [facility] Other (2 sources) Tetracaine Drug Allergy Unknown [facility] Other (20 sources) Penicillins Drug Intolerance 12-13-[address] [facility] (20 sources) Other Propensity to adverse reactions 12-13-[address] [facility] (20 sources) Wound Dressing Adhesive Drug Allergy 09-20-19 Rash, Unknown [facility] (20 sources) Eszopiclone Drug Allergy 09-21-19 Hallucinations , Anaphylaxis [facility] (1 source) Penicillin Drug Allergy 03-02-20 [facility] Repository (1 source) Penicillins Drug allergy (disorder) 03-02-20 [facility] Repository (1 source) Tetracaine Drug Allergy 03-02-20 [facility] Repository Medications Current Medications Medication Drug Class(es) Dates Sig (Normalized) Sig (Original) acetaminophen 325 mg / HYDROcodone bitartrate 5 mg oral tablet (3 sources) Opioid Agonist Start: 12-14-2024 End: 12-26-2024 take 1 tablet by mouth every six hours for pain, then take 2 tablets by mouth every six hours for pain HYDROcodone-acetami nophen ([place]) 5-325 MG tablet Indications: Primary osteoarthritis of right knee May take 1 tablet by mouth every 6 (six) hours if needed for severe pain. May also take 2 tablets every 6 (six) hours if needed for severe pain. Do all this for 7 days. 40 tablet 12/14/2024 12/26/2024 Active amLODIPine 10 mg oral tablet (20 sources) [...] 60 mg in the evening. 0 Active aspirin 325 mg oral tablet (6 sources) Platelet Aggregation Inhibitor, Nonsteroidal Anti-inflammatory Drug Start: End: take 1 tablet by mouth once daily aspirin 325 MG EC tablet Indications: Primary osteoarthritis of right knee Take 1 tablet (325 mg) by mouth Daily for 21 days 21 tablet 12/14/2024 01/04/2025 Active Start: 05-27-2018 End: 11-17-2022 take 81 mg by mouth once daily Aspirin Discontinued 81 MG PO Daily May 27, 2018 12:00am November 17, 2022 12:52am azithromycin 250 mg oral tablet (4 sources) Macrolide Antimicrobial Start: 06-14-2024 azithromycin (Zithromax) 250 MG tablet Indications: URI, acute Day #1: 2 tablets, and Day 2-5: 1 tablet daily 6 tablet 06/14/2024 Active Bariatric Multivitamins/Iron - (2 sources) Bariatric Multivitamins/Iron - as directed Orally Active biotin 5 mg oral tablet (20 sources) biotin 5 MG tabl et Pt taking OTC ([employer]) Active biotin 1 MG caps ule Biotin [...] (CITRACAL + D PO) Pt taking OTC ([employer]) Active Calcium Citrate- Vitamin D (CITRACAL + D PO) Citracal + D 0 Active Cannabinoids (medical cannabis) (15 sources) Cannabinoids (medical cannabis) Take 1 each [...] sources) Histamine-1 Receptor Antagonist Start: 10-05-2023 End: 05-23-2025 take 1 tablet by mouth once daily [...] 2022 12:45am diazePAM 10 mg oral tablet (13 sources) Benzodiazepine Start: 10-31-2024 diazePAM (Valium) 10 MG tablet Indications: Claustrophobia 1 tab orally 30-60 mins before procedure as need for anxiety, claustrophobia. 1 tablet 10/31/2024 Active diclofenac sodium 50 mg delayed release oral tablet (12 sources) Nonsteroidal Anti-inflammatory Drug Start: 07-24-2024 End: 10-13-2024 diclofenac (Voltaren) 50 MG EC tablet 07/24/2024 10/13/2024 Discontinued (Therapy completed) docusate sodium 100 mg oral capsule (4 sources) Start: 12-14-2024 End: 01-03-2025 take 1 capsule by mouth in the morning docusate sodium (Colace) 100 MG capsule Indications: Primary osteoarthritis of right knee Take 1 capsule (100 mg) by mouth in the morning and 1 capsule (100 mg) before bedtime. Do all this for 20 days. 40 capsule 12/14/2024 12/26/2024 Discontinued (Therapy completed) DULoxetine 60 mg delayed [...] 0 Active Iron-Vitamin C (IRON 100/C PO) (15 sources) Iron-Vitamin C ( IRON 100/C PO) [...] sources) Magnesium 400 MG capsule Pt taking OTC([employer]) Active Magnesium 400 MG capsule magnesium 0 [...] e Melatonin 12 MG tablet Indications: from [employer] Take 1 tablet by mouth at bedtime [...] s-Minerals (BARIATRIC MULTIVITAMINS/IRON PO) Pt taking OTC ([employer]) Active Multiple Vitamin s-Minerals (BARIATRIC MULTIVITAMINS/IRON PO) Bariatric Multivitamins/Iron 0 Active Eosbirshjowj-Gpl-Zcvr-Fa-Vit K (Bariatric Multivitamins) 45 mg iron- 800 mcg-120 mcg Capsule (2 sources) Start: 11-17-2022 take 1 capsule by mouth once daily Juqgocqbqwjb-Awy-Jouj-Fa-Vit K (Bariatric Multivitamins) 45 mg iron- 800 mcg-120 mcg Capsule Active 1 CAP PO Daily November 16, 2022 11:00pm Start: 11-17-2022 take 1 capsule by mo uth once daily Noereorzxudd-Jzi-Apmf-Fa-Vit K (Bariatri c Multivitamins) 45 mg iron- 800 mcg-120 mcg Capsule Active 1 CAP PO Daily November 17, 2022 12:00am nystatin 985540 unt/ml topical cream (20 sources) Polyene Antifungal Start: 03-07-2024 nystatin (M ycostatin) cream 03/07/2024 Active nystatin (Mycost atin) 953858 UNIT/GM powder Apply 1 application topically in [...] 3a (HCC)] Onset: 05-12-1905-12-2024 Chronic Conduction disorders (20 sources) EKG: right [...] of awareness] 04-12-2024 Episodic Residual codes; unclassified (19 sources) Disorientated; Translations: [Disorientation, unspecified] Onset: 10-14-1910-13-2024 [...] 05-18-2023 Episodic Other aftercare (1 source) 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; Translations: [OTH LONG-TERM CURRENT DRUG THERAPY] Onset: 04-29-2022 Episodic Other [...] Reference Range Facility [place] [address] Magnetic Resonance Report Signed Patient: MICHELLE BE MR#: [id number] : 1960 Acct:[id number] Age/Sex: 63 / F ADM Date: 11/23/24 Loc: MRI Attending Dr: Elizabeth Culp NP Ordering Physician: Elizabeth Culp NP Date of Service: 11/23/24 Procedure(s): MR lumbar spine wo con Accession Number(s): [id number] cc: Adelaida Carrion [employer]; Elizabeth Culp NP [place] [phone] Patient Name: MICHELLE BE MRN: [id number] date: 1960 Sex: F Assigned Patient Location: MRI Current Patient Location: MRI Accession/Order Number: [id number] Exam Date: 11/23/2024 12:59 Report Date: 11/23/2024 [...] noted. There is moderate central canal narrowing. Gqnj-kw-otndtgaf neural foraminal narrowing. L4-5: Circumferential disc bulge with small right subarticular zone T2 hyperintensity and protrusion questionably contacting the right traversing L5 nerve root. No high-grade mass effect or displacement on the L5 nerve root identified. Otherwise moderate foraminal narrowing. Advanced facet arthropathy. Xzbr-oc-uhwbxgeo central canal stenosis. L5-S1: Disc desiccation with [...] Calderon M.D. 11/23/2024 1:28 PM Dictation Location: [place] [address] Electronically authenticated by: [id number] Y Date: 11/23/2024 13:28 Dictated By: Omar Calderon M.D. Signed By: 11/23/24 1332 DD/ 1328 TD/TT: Counseling Program Leader: [facility] Radiology, Radiologist, MD - 11/23/2024 [place] [address] Magnetic Resonance Report Signed Patient: MICHELLE BE MR#: [id number] : 1960 Acct:[id number] Age/Sex: 63 / F ADM Date: 11/23/24 Loc: MRI Attending Dr: Elizabeth Culp [employer] Ordering Physician: Elizabeth Culp NP Date of Service: 11/23/24 Procedure(s): MR lumbar spine wo con Accession Number(s): [id number] cc: Adelaida Carrion [employer]; Elizabeth Culp NP [place] [phone] Patient Name: MICHELLE BE MRN: [facility]:[id number] date: 1960 Sex: F Assigned Patient Location: MRI Current Patient Location: MRI Accession/Order Number: [id number] Exam Date: 11/23/2024 12:59 Report Date: 11/23/2024 [...] noted. There is moderate central canal narrowing. Flrb-ld-xwpjdgly neural foraminal narrowing. L4-5: Circumferential disc bulge with small right subarticular zone T2 hyperintensity and protrusion questionably contacting the right traversing L5 nerve root. No high-grade mass effect or displacement on the L5 nerve root identified. Otherwise moderate foraminal narrowing. Advanced facet arthropathy. Jtrp-pf-trhrcgec central canal stenosis. L5-S1: Disc desiccation with [...] Calderon M.D. 11/23/2024 1:28 PM Dictation Location: [place] [address] Electronically authenticated by: [id number] Y Date: 11/23/2024 13:28 Dictated By: Omar Calderon M.D. Signed By: 11/23/24 1330 DD/ 1328 TD/TT: Counseling Program Leader: [facility] Radiology Study observation (narrative) [facility] MR LUMBAR SPINE WO CONOrdere d By: Radiologist Radiology on 11-23-2024 [facility] Work Phone: [facility] MICROALB CREAT RATIO LANIE Singh 11-23-2024 CREATININE URINE RANDOM 94.24 mg/dL 20.00 - 300.00 mg/dL [facility] MICROALBUMIN URINE RANDOM <1.3 NINF - 30.0 mg/dL [facility] XR CHEST 2Von 11-23-[address] [address] XRay Report Signed Patient: MICHELLE BE MR#: [id number] : 1960 Acct:[id number] Age/Sex: 63 / F ADM Date: 11/23/24 Loc: RAD Attending Dr: HARRISON HOYOS Ordering Physician: HARRISON HOYOS Date of Service: 11/23/24 Procedure(s): XR chest 2V Accession Number(s): [id number] cc: Adelaida Carrion NP; HARRISON HOYOS [address] [address] Patient Name: MICHELLE BE MRN: [facility]:[id number] date: 1960 Sex: F Assigned Patient Location: RAD Current Patient Location: MRI Accession/Order Number: [id number] Exam Date: 11/23/2024 12:50 Report Date: 11/23/2024 12:51 At the request of: HARRISON HOYOS Procedure: XR chest 2V PA AND LATERAL CHEST: CLINICAL HISTORY: Pre Operative Testing COMPARISON: 07/24/2024 FINDINGS: Unremarkable cardiomediastinal. Lungs clear. No effusion or pneumothorax. XR/XR chest 2V IMPRESSION: NO ACUTE CARDIOPULMONARY ABNORMALITY. Impression dictated by: Omar Calderon M.D. 11/23/2024 12:51 PM Dictation Location: [place] [address] Electronically authenticated by: [id number] Y Date: 11/23/2024 12:51 Dictated By: Omar Calderon M.D. Signed By: 11/23/24 1254 DD/ 1251 TD/TT: Counseling Program Leader: [facility] Radiology, Radiologist, MD - 11/23/[address] [address] XRay Report Signed Patient: MICHELLE BE MR#: [id number] : 1960 Acct:[id number] Age/Sex: 63 / F ADM Date: 11/23/24 Loc: RAD Attending Dr: HARRISON HOYOS Ordering Physician: HARRISON HOYOS Date of Service: 11/23/24 Procedure(s): XR chest 2V Accession Number(s): [id number] cc: Adelaida Carrion [employer]; HARRISON HOYOS [place] [phone] Patient Name: MICHELLE BE MRN: [id number] date: 1960 Sex: F Assigned Patient Location: [facility] Current Patient Location: MRI Accession/Order Number: [id number] Exam Date: 11/23/2024 12:50 Report Date: 11/23/2024 12:51 At the request of: HARRISON HOYOS Procedure: XR chest 2V PA AND LATERAL CHEST: CLINICAL HISTORY: Pre Operative Testing COMPARISON: 07/24/2024 FINDINGS: Unremarkable cardiomediastinal. Lungs clear. No effusion or pneumothorax. XR/XR chest 2V IMPRESSION: NO ACUTE CARDIOPULMONARY ABNORMALITY. Impression dictated by: Omar Calderon M.D. 11/23/2024 12:51 PM Dictation Location: [place] [address] Electronically authenticated by: [id number] Y Date: 11/23/2024 12:51 Dictated By: Omar Calderon M.D. Signed By: 11/23/24 1254 DD/ 1251 TD/TT: Counseling Program Leader: [facility] Radiology Study observation (narrative) [facility] XR CHEST 2VOrdered By: [employer] Radiology on 11-23-2024 [facility] Work Phone: IGP,APTIMA HPV,AGE GDLNon AGE GDLN ACOG TESTING Note . [facility] Comment on above: TESTS RESULT FLAG UN ITS REF RANGE LAB Clinician Provided Cytology Information Source.............Cervix;Endocervix No. of containers..01 ThinPrep Vial Age Algo ACOG Tona... 30-65 FLAG LEGEND: L-Low Normal,H-High Normal,LL-Alert Low,HH-Alert High <-Panic Low,>-Panic High,A-Abnormal,AA-Critical Abnormal Performed at: 01 =[address] [address] Farzana Hennessy MD, HPV APTIMA Negative Negative [facility] Comment on above: This nucleic acid am plification test detects fourteen high- risk HPV types (16,18,31,33,35,39,45,51,52,56,58,59,66,68) without differentiation. Performed at: =[address] [id number] Service Center Manager: Farzana Hennessy MD, Phone: [phone] Performed at: [address] [id number] Service Center Manager: Farzana Hennessy MD, Phone: [phone] IGP, APTIMA HPV, RFX 16/18,[address] [facility] Comment on above: TESTS RESULT FLAG UN ITS REF RANGE LAB DIAGNOSIS: 02 NEGATIVE FOR INTRAEPITHELIAL LESION OR MALIGNANCY. CELLULAR CHANGES ASSOCIATED WITH ATROPHY ARE PRESENT. Specimen adequacy: 02 Satisfactory for evaluation. Endocervical component may not be distinguished in cases of atrophy. Performed by: 02 Adela Acosta Paper Bundler (ASCP) . 02 Note: Note 02 The [...] <-Panic Low,>-Panic High,A-Abnormal,AA-Critical Abnormal Performed at: [address] [address] Farzana Hennessy MD, BRUSH-SPATULA CERVIX ENDOCERVIX [facility] MR KNEE RIGHT WO IV CONTRAST on [...] - bilat eral GE 2 [employer] 09-29-2024 [place] [address] XRay Report Signed Patient: MICHELLE BE MR#: [id number] : 1960 Acct:[id number] Age/Sex: 63 / F ADM Date: 09/29/24 Loc: [facility] Attending Dr: Elizabeth Culp NP Ordering Physician: Elizabeth Culp NP Date of Service: 09/29/24 Procedure(s): XR hip BHUMI Accession Number(s): [id number] cc: Adelaida Carrion NP; Elizabeth Culp NP [place] [address] Patient Name: MICHELLE BE MRN: [id number] date: 1960 Sex: F Assigned Patient Location: [facility] Current Patient Location: [facility] Accession/Order Number: [id number] Exam Date: 09/29/2024 11:20 Report Date: 09/29/2024 [...] Bernal M.D. 09/29/2024 11:23 AM Dictation Location: [place] [address] Electronically authenticated by: [id number] Y Date: 09/29/2024 11:23 Dictated By: Edith Bernal M.D. Signed By: 09/29/24 1126 DD/ 1123 TD/TT: Counseling Program Leader: [facility] Radiology, Radiologist, MD - 09/29/2024 [place] [address] XRay Report Signed Patient: MICHELLE BE MR#: [id number] : 1960 Acct:[id number] Age/Sex: 63 / F ADM Date: 09/29/24 Loc: SA[facility] Attending Dr: Elizabeth Culp NP Ordering Physician: Elizabeth Culp NP Date of Service: 09/29/24 Procedure(s): XR hip BHUMI Accession Number(s): [id number] cc: Adelaida Carrion [employer]; Elizabeth Culp NP [place] [address] Patient Name: MICHELLE BE MRN: [facility]:[id number] date: 1960 Sex: F Assigned Patient Location: [facility] Current Patient Location: [facility] Accession/Order Number: [id number] Exam Date: 09/29/2024 11:20 Report Date: 09/29/2024 [...] Bernal M.D. 09/29/2024 11:23 AM Dictation Location: [place] [address] Electronically authenticated by: [id number] Y Date: 09/29/2024 11:23 Dictated By: Edith Bernal M.D. Signed By: 09/29/24 1126 DD/ 1123 TD/TT: Counseling Program Leader: [facility] Study observation (narrative) [facility] XR Pelvis AP and Hip - bilat eral GE 2 ViewsOrdered By: Radiologist Radiology on 09-29-2024 [facility] Work Phone: CT LUNG SCREENING LOW DOSEon 09-26-2024 [place] [address] CT Scan Report Signed Patient: MICHELLE BE MR#: [id number] : 1960 Acct:[id number] Age/Sex: 63 / F ADM Date: 09/26/24 Loc: MAMMO Attending Dr: Adelaida Carrion NP Ordering Physician: Adelaida Carrion NP Date of Service: 09/26/24 Procedure(s): CT lung screening low-dose Accession Number(s): [id number] cc: Adelaida Carrion NP [address] [address] Patient Name: MICHELLE BE MRN: [id number] date: 1960 Sex: F Assigned Patient Location: [facility] Current Patient Location: RAD Accession/Order Number: [id number] Exam Date: 09/26/2024 16:58 Report Date: 09/26/2024 [...] Guadalupe M.D. 09/26/2024 5:02 PM Dictation Location: [place] [address] Electronically authenticated by: [id number] Y Date: 09/26/2024 17:02 Dictated By: Willi Guadalupe M.D. Signed By: 09/26/241703 DD/ 01 TD/TT: Counseling Program Leader: [facility] Radiology, Radiologist, MD - 09/26/2024 [place] [address] [place] Scan Report Signed Patient: MICHELLE BE MR#: [id number] : 1960 Acct:[id number] Age/Sex: 63 / F ADM Date: 09/26/24 Loc: MAMMO Attending Dr: Adelaida Carrion NP Ordering Physician: Adelaida Carrion NP Date of Service: 09/26/24 Procedure(s): CT lung screening low-dose Accession Number(s): [id number] cc: Adelaida Carrion NP The [address] [address] Patient Name: MICHELLE BE MRN: [facility]:[id number] date: 1960 Sex: F Assigned Patient Location: [facility] Current Patient Location: RAD Accession/Order Number: [id number] Exam Date: 09/26/2024 16:58 Report Date: 09/26/2024 [...] Guadalupe M.D. 09/26/2024 5:02 PM Dictation Location: [place] [address] Electronically authenticated by: [id number] Y Date: 09/26/2024 17:02 Dictated By: Willi Guadalupe M.D. Signed By: 09/26/24 170 DD/ 01 TD/TT: Counseling Program Leader: [facility] Radiology Study observation (narrative) [facility] CT LUNG SCREENING LOW DOSEOr dered By: Radiologist Radiology on 09-26-2024 [facility] Work Phone: MM TOMOSYNTHESIS SCREENING B Ion 09-26-2024 [place] [address] Mammography Report Signed Patient: MICHELLE BE MR#: [id number] : 1960 Acct:[id number] Age/Sex: 63 / F ADM Date: 09/26/24 Loc: MAMMO Attending Dr: Adelaida Carrion NP Ordering Physician: Adelaida Carrion NP Results: Date of Service: 09/26/24 Follow Up: Procedure(s): MM tomosynthesis screening BI Accession Number(s): [id number] cc: Adelaida Carrion NP Patient Name: MICHELLE BE MR#: [id number] : 1960 Exam Date: 09/26/2024 Ordering Doctor: [...] Family Cancers None LOCATION: [facility] BREAST COMPOSITION: There are scattered areas [...] M.D. Signed By: 09/26/241642 DD/ 41 TD/TT: Counseling Program Leader: [facility] Radiology, Radiologist, MD - 09/26/2024 [place] [address] Mammography Report Signed Patient: MICHELLE BE MR#: [id number] : 1960 Acct:[id number] Age/Sex: 63 / F ADM Date: 09/26/24 Loc: MAMMO Attending Dr: Adelaida Carrion NP Ordering Physician: Adelaida Carrion NP Results: Date of Service: 09/26/24 Follow Up: Procedure(s): MM tomosynthesis screening BI Accession Number(s): [id number] cc: Adelaida Carrion NP Patient Name: MICHELLE BE MR#: [id number] : 1960 Exam Date: 09/26/2024 Ordering Doctor: [...] Family Cancers None LOCATION: [facility] BREAST COMPOSITION: There are scattered areas [...] M.D. Signed By: 09/26/241642 DD/ 41 TD/TT: Counseling Program Leader: [facility] Radiology Study observation (narrative) [facility] MM TOMOSYNTHESIS SCREENING B IOrdered By: Radiologist Radiology on 09-26-2024 [facility] [employer] Work Phone: XR SHOULDER RT MIN 2Von 09-[address] [address] XRay Report Signed Patient: MICHELLE BE MR#: [id number] : 1960 Acct:[id number] Age/Sex: 63 / F ADM Date: 09/26/24 Loc: RAD Attending Dr: Elizabeth Culp NP Ordering Physician: Elizabeth Culp NP Date of Service: 09/26/24 Procedure(s): XR shoulder RT min 2V Accession Number(s): [id number] cc: Adelaida Carrion NP; Elizabeth Culp NP [place] [address] Patient Name: MICHELLE BE MRN: [id number] date: 1960 Sex: F Assigned Patient Location: [facility] Current Patient Location: [facility] Accession/Order Number: [id number] Exam Date: 09/26/2024 13:34 Report Date: 09/26/2024 [...] Guadalupe M.D. 09/26/2024 1:35 PM Dictation Location: [place] [address] Electronically authenticated by: [id number] Y Date: 09/26/2024 13:35 Dictated By: Willi Guadalupe M.D. Signed By: 09/26/24 1338 DD/ 34 TD/TT: Counseling Program Leader: [facility] Radiology, Radiologist, MD - 09/26/2024 [place] [address] XRay Report Signed Patient: MICHELLE BE MR#: [id number] : 1960 Acct:[id number] Age/Sex: 63 / F ADM Date: 09/26/24 Loc: RAD Attending Dr: Elizabeth Culp NP Ordering Physician: Elizabeth Culp NP Date of Service: 09/26/24 Procedure(s): XR shoulder RT min 2V Accession Number(s): [id number] cc: Adelaida Carrion [employer]; Elizabeth Culp NP [place] [address] Patient Name: MICHELLE BE MRN: [facility]:[id number] date: 1960 Sex: F Assigned Patient Location: [facility] Current Patient Location: [facility] Accession/Order Number: [id number] Exam Date: 09/26/2024 13:34 Report Date: 09/26/2024 [...] Guadalupe M.D. 09/26/2024 1:35 PM Dictation Location: [place] [address] Electronically authenticated by: [id number] Y Date: 09/26/2024 13:35 Dictated By: Willi Guadalupe M.D. Signed By: 09/26/24 1338 DD/ 34 TD/TT: Counseling Program Leader: [facility] Radiology Study observation (narrative) [facility] XR SHOULDER RT MIN 2VOrdered By: Radiologist Radiology on 09-26-2024 [facility] Work Phone: HbA1c (Bld) [Mass fraction]o n 08-16-2024 Interpretation and review of laboratory results Normal [facility] - Hematology and Cell countson 08-16-2024 HbA1c (Bld) [Mass fraction] 5.6 % [facility] Complete Blood Count Auto Di ffon 03-05-2024 Basophils (Bld) [#/Vol] 0.0 10*3/uL Normal 0.0-0.2 [facility] Comment on above: Result Comment: PERF ORMED BY: [place] [address] PATHOLOGIST CHASSIS MECHANIC ADIEL AGUSTIN M.D. Performed By: #### M G, CBC, CMP #### [place] [address] [place] Basophils/100 WBC (Bld) 0.5 % Normal . [facility] Comment on above: Performed By: #### M G, CBC, CMP #### [facility] [address] [place] [address] [place] Eosinophils (Bld) [#/Vol] 0.2 10*3/uL Normal 0.0-0.45 [facility] Comment on above: Performed By: #### M G, CBC, CMP #### [place] [address] [place] Eosinophils/100 WBC (Bld) 2.2 % Normal . [facility] Comment on above: Performed By: #### M G, CBC, CMP #### [address] Erythrocyte distribution width (RBC) [Ratio] 14.5 % Normal 11.9-15.3 [facility] Comment on above: Performed By: #### M G, CBC, CMP #### [address] Hematocrit (Bld) [Volume fraction] 43.0 % Normal 34.0-46.4 [facility] Comment on above: Performed By: #### M G, CBC, CMP #### [address] Hemoglobin (Bld) [Mass/Vol] 14.3 g/dL Normal 11.8-15.4 [facility] Comment on above: Performed By: #### M G, CBC, CMP #### [address] Lymphocytes (Bld) [#/Vol] 1.8 10*3/uL Normal 1.00-4.8 [facility] Comment on above: Performed By: #### M G, CBC, CMP #### [address] Lymphocytes/100 WBC (Bld) 18.9 % Normal . [facility] Comment on above: Performed By: #### M G, CBC, CMP #### [address] MCH (RBC) [Entitic mass] 29.0 pg Normal 24.7-34.3 [facility] Comment on above: Performed By: #### M G, CBC, CMP #### [address] MCV (RBC) [Entitic vol] 87.0 fL Normal 80-100 [facility] Comment on above: Performed By: #### M G, CBC, CMP #### [address] Mean Corpuscular HGB Conc 33.4 g/dL Normal 32.0-35.0 [facility] Comment on above: Performed By: #### M G, CBC, CMP #### [address] Monocytes (Bld) [#/Vol] 0.5 10*3/uL Normal 0.0-0.8 [facility] Comment on above: Performed By: #### M G, CBC, CMP #### [place] [address] [place] Monocytes/100 WBC (Bld) 5.5 % Normal . [facility] Comment on above: Performed By: #### M G, CBC, CMP #### [address] Neutrophils (Bld) [#/Vol] 7.0 10*3/uL Normal 1.8-7.7 [facility] Comment on above: Performed By: #### Karo G, CBC, CMP #### [address] Neutrophils/100 WBC (Bld) 72.9 % Normal . [facility] Comment on above: Performed By: #### M Lyndon, CBC, CMP #### [address] NRBC% 0.0 /100{WBC} Normal 0-0.5 [facility] Comment on above: Performed By: #### M G, CBC, CMP #### [address] Platelet mean volume (Bld) [Entitic vol] 8.9 fL Normal 6.3-10.7 [facility] Comment on above: Performed By: #### M G, CBC, CMP #### [place] [address] [place] Platelets (Bld) [#/Vol] 289 10*3/uL Normal 150-450 [facility] Comment on above: Performed By: #### M G, CBC, CMP #### [address] [place] [address] [place] RBC (Bld) [#/Vol] 4.94 10*6/uL Normal 3.60-5.00 [facility] Comment on above: Performed By: #### M G, CBC, CMP #### [address] WBC (Bld) [#/Vol] 9.6 10*3/uL Normal 3.8-11.6 The [facility] Comment on above: Performed By: #### M G, CBC, CMP #### [address] Comprehensive Metabolic Pane [place] 03-05-2024 Albumin [Mass/Vol] 4.4 g/dL Normal 3.5-5.7 [facility] Comment on above: Performed By: #### M G, CBC, CMP #### [address] Albumin/Globulin [Mass ratio] 1.3 {ratio} Normal [facility] Comment on above: Performed By: #### M G, CBC, CMP #### [address] ALP [Catalytic activity/Vol] 79 U/L Normal 34-104 [facility] Comment on above: Performed By: #### M G, CBC, CMP #### [address] ALT [Catalytic activity/Vol] 23 U/L Normal 7-52 [facility] Comment on above: Performed By: #### M G, CBC, CMP #### [address] Anion gap [Moles/Vol] 15.4 mmol/L High 6.0-15.0 Th e [facility] Comment on above: Performed By: #### M G, CBC, CMP #### [address] AST [Catalytic activity/Vol] 36 U/L Normal 13-39 [facility] Comment on above: Performed By: #### M G, CBC, CMP #### [facility] [address] [place] [address] [place] Bilirubin [Mass/Vol] 0.4 mg/dL Normal 0.3-1.0 [facility] Comment on above: Performed By: #### M G, CBC, CMP #### [facility] [address] [place] [address] [place] Calcium [Mass/Vol] 9.5 mg/dL Normal 8.6-10.3 The [facility] Comment on above: Performed By: #### M G, CBC, CMP #### [facility] [address] [place] [address] [place] Chloride [Moles/Vol] 106 mmol/L Normal 98-107 [facility] Comment on above: Performed By: #### M G, CBC, CMP #### [address] CO2 [Moles/Vol] 23.1 mmol/L Normal 21.0-31.0 The [facility] Comment on above: Performed By: #### M G, CBC, CMP #### [place] [address] [place] Creatinine [Mass/Vol] 0.96 mg/dL Normal 0.60-1.20 [facility] Comment on above: Performed By: #### M G, CBC, CMP #### [place] [address] [place] Creatinine Clr Calc Pharmacy 84.51 Normal [facility] Comment on above: Performed By: #### M G, CBC, CMP #### [place] [address] [place] GFR/1.73 sq M.predicted MDRD (S/P/Bld) [Vol rate/Area] mL/min/{1.73_m2} Normal [facility] Comment on above: Performed By: #### M G, CBC, CMP #### [facility] [address] [place] [address] [place] Globulin (S) [Mass/Vol] 3.3 g/dL Normal [facility] Comment on above: Performed By: #### M G, CBC, CMP #### [address] Glucose [Mass/Vol] 133 mg/dL High 70-100 The [facility] Comment on above: Result Comment: [facility] Glucose Reference Range is dependent on time and content of last meal. Glucose of more than 200 mg/dL in a nonstressed, ambulatory subject supports the diagnosis of Diabetes Mellitus. ADA recommended reference range Performed By: #### M G, CBC, CMP #### [address] Potassium [Moles/Vol] 3.5 mmol/L Normal 3.5-5.1 [facility] Comment on above: Performed By: #### M G, CBC, CMP #### [address] Protein [Mass/Vol] 7.7 g/dL Normal 6.4-8.9 [facility] Comment on above: Performed By: #### M G, CBC, CMP #### [address] Sodium [Moles/Vol] 141 mmol/L Normal 136-145 The [facility] Comment on above: Performed By: #### M G, CBC, CMP #### [address] Urea nitrogen [Mass/Vol] 18 mg/dL Normal 7-25 [facility] Comment on above: Performed By: #### M G, CBC, CMP #### [address] Magnesiumon 03-05-2024 Magnesium [Mass/Vol] 2.0 mg/dL Normal 1.9-2.7 [facility] Comment on above: Result Comment: PERF ORMED BY: [place] [address] PATHOLOGIST CHASSIS MECHANIC ADIEL AGUSTIN M.D. Performed By: #### M G, CBC, CMP #### [address] Complete Blood Count Auto Di ffon 03-04-2024 Basophils (Bld) [#/Vol] 0.1 10*3/uL Normal 0.0-0.2 [facility] Comment on above: Result Comment: PERF ORMED BY: [place] [address] PATHOLOGIST CHASSIS MECHANIC ADIEL AGUSTIN M.D. Performed By: #### C BC, CMP, MG #### [address] Basophils/100 WBC (Bld) 0.6 % Normal . [facility] Comment on above: Performed By: #### C BC, CMP, MG #### [address] Eosinophils (Bld) [#/Vol] 0.2 10*3/uL Normal 0.0-0.45 [facility] Comment on above: Performed By: #### C BC, CMP, MG #### [address] Eosinophils/100 WBC (Bld) 1.9 % Normal . [facility] Comment on above: Performed By: #### C BC, CMP, MG #### [address] Erythrocyte distribution width (RBC) [Ratio] 14.6 % Normal 11.9-15.3 [facility] Comment on above: Performed By: #### C BC, CMP, MG #### [address] Hematocrit (Bld) [Volume fraction] 43.5 % Normal 34.0-46.4 [facility] Comment on above: Performed By: #### C BC, CMP, MG #### [address] Hemoglobin (Bld) [Mass/Vol] 14.4 g/dL Normal 11.8-15.4 [facility] Comment on above: Performed By: #### C BC, CMP, MG #### [address] Lymphocytes (Bld) [#/Vol] 1.8 10*3/uL Normal 1.00-4.8 [facility] Comment on above: Performed By: #### C BC, CMP, MG #### [address] Lymphocytes/100 WBC (Bld) 18.0 % Normal . [facility] Comment on above: Performed By: #### C BC, CMP, MG #### [address] MCH (RBC) [Entitic mass] 28.8 pg Normal 24.7-34.3 [facility] Comment on above: Performed By: #### C BC, CMP, MG #### [address] MCV (RBC) [Entitic vol] 87.0 fL Normal 80-100 [facility] Comment on above: Performed By: #### C BC, CMP, MG #### [address] Mean Corpuscular HGB Conc 33.2 g/dL Normal 32.0-35.0 [facility] Comment on above: Performed By: #### C BC, CMP, MG #### [address] Monocytes (Bld) [#/Vol] 0.8 10*3/uL Normal 0.0-0.8 [facility] Comment on above: Performed By: #### C BC, CMP, MG #### [address] Monocytes/100 WBC (Bld) 8.2 % Normal . [facility] Comment on above: Performed By: #### C BC, CMP, MG #### [address] Neutrophils (Bld) [#/Vol] 7.3 10*3/uL Normal 1.8-7.7 [facility] Comment on above: Performed By: #### C BC, CMP, MG #### [address] Neutrophils/100 WBC (Bld) 71.3 % Normal . [facility] Comment on above: Performed By: #### C BC, CMP, MG #### [address] NRBC% 0.1 /100{WBC} Normal 0-0.5 [facility] Comment on above: Performed By: #### C BC, CMP, MG #### [address] Platelet mean volume (Bld) [Entitic vol] 8.8 fL Normal 6.3-10.7 [facility] Comment on above: Performed By: #### C BC, CMP, MG #### [address] Platelets (Bld) [#/Vol] 334 10*3/uL Normal 150-450 [facility] Comment on above: Performed By: #### C BC, CMP, MG #### [address] RBC (Bld) [#/Vol] 5.01 10*6/uL High 3.60-5.00 [facility] Comment on above: Performed By: #### C BC, CMP, MG #### [address] WBC (Bld) [#/Vol] 10.3 10*3/uL Normal 3.8-11.6 [facility] Comment on above: Performed By: #### C BC, CMP, MG #### [address] Comprehensive Metabolic Pane [place] 03-04-2024 Albumin [Mass/Vol] 4.5 g/dL Normal 3.5-5.7 The [facility] Comment on above: Performed By: #### C BC, CMP, MG #### [address] Albumin/Globulin [Mass ratio] 1.4 {ratio} Normal [facility] Comment on above: Performed By: #### C BC, CMP, MG #### [facility] [address] [place] [address] [place] ALP [Catalytic activity/Vol] 79 U/L Normal 34-104 [facility] Comment on above: Performed By: #### C BC, CMP, MG #### [facility] [address] [place] [id number] [place] ALT [Catalytic activity/Vol] 19 U/L Normal 7-52 [facility] Comment on above: Performed By: #### C BC, CMP, MG #### [facility] [address] Anion gap [Moles/Vol] 11.4 mmol/L Normal 6.0-15.0 [facility] Comment on above: Performed By: #### C BC, CMP, MG #### [facility] [address] AST [Catalytic activity/Vol] 37 U/L Normal 13-39 [facility] Comment on above: Performed By: #### C BC, CMP, MG #### [place] [address] [place] Bilirubin [Mass/Vol] 0.5 mg/dL Normal 0.3-1.0 [facility] Comment on above: Performed By: #### C BC, CMP, MG #### [facility] [address] [place] [address] [place] Calcium [Mass/Vol] 9.6 mg/dL Normal 8.6-10.3 The [facility] Comment on above: Performed By: #### C BC, CMP, MG #### [facility] [address] [place] [id number] [place] Chloride [Moles/Vol] 107 mmol/L Normal 98-107 [facility] Comment on above: Performed By: #### C BC, CMP, MG #### [facility] [address] [place] [address] [place] CO2 [Moles/Vol] 27.4 mmol/L Normal 21.0-31.0 The [facility] Comment on above: Performed By: #### C BC, CMP, MG #### [address] Creatinine [Mass/Vol] 0.91 mg/dL Normal 0.60-1.20 [facility] Comment on above: Performed By: #### C BC, CMP, MG #### [place] [address] [place] Creatinine Clr Calc Pharmacy 90.12 Normal [facility] Comment on above: Performed By: #### C BC, CMP, MG #### [place] [address] [place] GFR/1.73 sq M.predicted MDRD (S/P/Bld) [Vol rate/Area] mL/min/{1.73_m2} Normal [facility] Comment on above: Performed By: #### C BC, CMP, MG #### [address] Globulin (S) [Mass/Vol] 3.2 g/dL Normal [facility] Comment on above: Performed By: #### C BC, CMP, MG #### [address] Glucose [Mass/Vol] 100 mg/dL Normal 70-100 [facility] Comment on above: Result Comment: [place] Glucose Reference Range is dependent on time and content of last meal. Glucose of more than 200 mg/dL in a nonstressed, ambulatory subject supports the diagnosis of Diabetes Mellitus. ADA recommended reference range Performed By: #### C BC, CMP, MG #### [address] Potassium [Moles/Vol] 3.8 mmol/L Normal 3.5-5.1 [facility] Comment on above: Performed By: #### C BC, CMP, MG #### [address] Protein [Mass/Vol] 7.7 g/dL Normal 6.4-8.9 [facility] Comment on above: Performed By: #### C BC, CMP, MG #### [address] [place] [address] [place] Sodium [Moles/Vol] 142 mmol/L Normal 136-145 [facility] Comment on above: Performed By: #### C BC, CMP, MG #### [address] Urea nitrogen [Mass/Vol] 15 mg/dL Normal 7-25 [facility] Comment on above: Performed By: #### C BC, CMP, MG #### [address] MR head/brain wo/w conon MR head/brain wo/w con [facility] [place] [address] [place] [address] MRI Report Signed Patient: Michelle Be MR#: [id number] : 1960 Acct:[id number] Age/Sex: 63 / F ADM Date: 03/03/24 Loc: Room: [address] [place] [address] Type: ADM IN Attending Dr: Delta Gan [...] Willi Guadalupe M.D.03/04/2024 2:32 PM Dictation Location: [place] [address] Transcribed By: [facility] 03/04/24 143 Dictated By: Willi Guadalupe II, MD 03/04/241423 Signed By: 03/04/24 143 Normal [facility] Magnesiumon 03-04-2024 Magnesium [Mass/Vol] 2.0 mg/dL Normal 1.9-2.7 [facility] Comment on above: Result Comment: PERF ORMED BY: [place] [address] PATHOLOGIST CHASSIS MECHANIC ADIEL AGUSTIN M.D. Performed By: #### C BC, CMP, MG #### [address] Complete Blood Count Auto Di ffon 03-03-2024 Basophils (Bld) [#/Vol] 0.1 10*3/uL Normal 0.0-0.2 [facility] Comment on above: Order Comment: REY PORRAS,WEN,160 Result Comment: PERF ORMED BY: [place] [address] PATHOLOGIST CHASSIS MECHANIC ADIEL AGUSTIN M.D. Performed By: #### C BC, CMP #### [place] [address] [place] Basophils/100 WBC (Bld) 0.6 % Normal . [facility] Comment on above: Order Comment: REY T O JAK PORRAS,WEN,160 Performed By: #### C BC, CMP #### [place] [address] [place] Eosinophils (Bld) [#/Vol] 0.1 10*3/uL Normal 0.0-0.45 [facility] Comment on above: Order Comment: RIN T O COME TRY,KAH,1607 Performed By: #### C BC, CMP #### [address] Eosinophils/100 WBC (Bld) 1.0 % Normal . [facility] Comment on above: Order Comment: RIN T O COME TRY,KAH,1607 Performed By: #### C BC, CMP #### [address] Erythrocyte distribution width (RBC) [Ratio] 14.6 % Normal 11.9-15.3 [facility] Comment on above: Order Comment: RIN T O COME TRY,KAH,1607 Performed By: #### C BC, CMP #### [address] Hematocrit (Bld) [Volume fraction] 42.9 % Normal 34.0-46.4 [facility] Comment on above: Order Comment: RIN T O COME TRY,KAH,1607 Performed By: #### C BC, CMP #### [address] Hemoglobin (Bld) [Mass/Vol] 14.5 g/dL Normal 11.8-15.4 [facility] Comment on above: Order Comment: RIN T O COME TRY,KAH,1607 Performed By: #### C BC, CMP #### [place] [address] [place] Lymphocytes (Bld) [#/Vol] 1.7 10*3/uL Normal 1.00-4.8 [facility] Comment on above: Order Comment: RIN T O COME TRY,KAH,1607 Performed By: #### C BC, CMP #### [place] [address] [place] Lymphocytes/100 WBC (Bld) 15.7 % Normal . [facility] Comment on above: Order Comment: RIN T O COME TRY,KAH,1607 Performed By: #### C BC, CMP #### [address] MCH (RBC) [Entitic mass] 29.1 pg Normal 24.7-34.3 [facility] Comment on above: Order Comment: RIN T O COME TRY,KAH,1607 Performed By: #### C BC, CMP #### [address] MCV (RBC) [Entitic vol] 85.9 fL Normal 80-100 [facility] Comment on above: Order Comment: RIN T O COME TRY,KAH,1607 Performed By: #### C BC, CMP #### [address] Mean Corpuscular HGB Conc 33.8 g/dL Normal 32.0-35.0 [facility] Comment on above: Order Comment: RIN T O COME TRY,KAH,1607 Performed By: #### C BC, CMP #### [address] Monocytes (Bld) [#/Vol] 0.9 10*3/uL High 0.0-0.8 [facility] Comment on above: Order Comment: RIN T O COME TRY,KAH,1607 Performed By: #### C BC, CMP #### [address] Monocytes/100 WBC (Bld) 8.4 % Normal . [facility] Comment on above: Order Comment: RIN T O COME TRY,KAH,1607 Performed By: #### C BC, CMP #### [address] Neutrophils (Bld) [#/Vol] 8.0 10*3/uL High 1.8-7.7 [facility] Comment on above: Order Comment: RIN T O COME TRY,KAH,1607 Performed By: #### C BC, CMP #### [place] [address] [place] Neutrophils/100 WBC (Bld) 74.3 % Normal . [facility] Comment on above: Order Comment: RIN T O COME TRY,KAH,1607 Performed By: #### C BC, CMP #### [facility] [address] NRBC% 0.1 /100{WBC} Normal 0-0.5 [facility] Comment on above: Order Comment: RIN T O COME TRY,KAH,1607 Performed By: #### C BC, CMP #### [address] Platelet mean volume (Bld) [Entitic vol] 8.9 fL Normal 6.3-10.7 [facility] Comment on above: Order Comment: RIN T O COME TRY,KAH,1607 Performed By: #### C BC, CMP #### [address] Platelets (Bld) [#/Vol] 291 10*3/uL Normal 150-450 [facility] Comment on above: Order Comment: RIN T O COME TRY,KAH,1607 Performed By: #### C BC, CMP #### [address] RBC (Bld) [#/Vol] 4.99 10*6/uL Normal 3.60-5.00 [facility] Comment on above: Order Comment: RIN T O COME TRY,KAH,1607 Performed By: #### C BC, CMP #### [address] WBC (Bld) [#/Vol] 10.7 10*3/uL Normal 3.8-11.6 [facility] Comment on above: Order Comment: RIN T O COME TRY,KAH,1607 Performed By: #### C BC, CMP #### [address] Comprehensive Metabolic Pane [place] 03-03-2024 Albumin [Mass/Vol] 4.6 g/dL Normal 3.5-5.7 [facility] Comment on above: Order Comment: RIN T O COME TRY,KAH,1607 Performed By: #### C BC, CMP #### [address] Albumin/Globulin [Mass ratio] 1.4 {ratio} Normal [facility] Comment on above: Order Comment: RIN T O COME TRY,KAH,1607 Performed By: #### C BC, CMP #### [address] ALP [Catalytic activity/Vol] 80 U/L Normal 34-104 [facility] Comment on above: Order Comment: RIN T O COME TRY,KAH,1607 Performed By: #### C BC, CMP #### [place] [address] [place] ALT [Catalytic activity/Vol] 16 U/L Normal 7-52 [facility] Comment on above: Order Comment: RIN T O COME TRY,KAH,1607 Performed By: #### C BC, CMP #### [address] Anion gap [Moles/Vol] 13.6 mmol/L Normal 6.0-15.0 [facility] Comment on above: Order Comment: RIN T O COME TRY,KAH,1607 Performed By: #### C BC, CMP #### [place] [address] [place] AST [Catalytic activity/Vol] 35 U/L Normal 13-39 [facility] Comment on above: Order Comment: RIN T O COME TRY,KAH,1607 Performed By: #### C BC, CMP #### [place] [address] [place] Bilirubin [Mass/Vol] 0.3 mg/dL Normal 0.3-1.0 [facility] Comment on above: Order Comment: RIN T O COME TRY,KAH,1607 Performed By: #### C BC, CMP #### [place] [address] [place] Calcium [Mass/Vol] 9.3 mg/dL Normal 8.6-10.3 [facility] Comment on above: Order Comment: RIN T O COME TRY,KAH,1607 Performed By: #### C BC, CMP #### [place] [id number] [facility] Chloride [Moles/Vol] 109 mmol/L High 98-107 [facility] Comment on above: Order Comment: RIN T O COME TRY,KAH,160 Performed By: #### C BC, CMP #### [facility] [address] CO2 [Moles/Vol] 22.4 mmol/L Normal 21.0-31.0 The [facility] Comment on above: Order Comment: RIN T O COME TRY,KAH,160 Performed By: #### C BC, CMP #### [facility] [address] [place] [id number] [place] Creatinine [Mass/Vol] 0.93 mg/dL Normal 0.60-1.20 [facility] Comment on above: Order Comment: RIN T O COME TRY,KAH,1606 Performed By: #### C BC, CMP #### [facility] [address] [place] [address] [place] Creatinine Clr Calc Pharmacy 87.94 Normal [facility] Comment on above: Order Comment: RIN T O COME TRY,KAH,1606 Result Comment: PERF ORMED BY: [place] [address] PATHOLOGIST CHASSIS MECHANIC ADIEL AGUSTIN M.D. Performed By: #### C BC, CMP #### [place] [address] [place] GFR/1.73 sq M.predicted MDRD (S/P/Bld) [Vol rate/Area] mL/min/{1.73_m2} Normal [facility] Comment on above: Order Comment: RIN T O COME TRY,KAH,1606 Performed By: #### C BC, CMP #### [facility] [address] [place] [id number] [place] Globulin (S) [Mass/Vol] 3.2 g/dL Normal [facility] Comment on above: Order Comment: RIN T O COME TRY,KAH,1606 Performed By: #### C BC, CMP #### [facility] [address] [place] [id number] [place] Glucose [Mass/Vol] 105 mg/dL High 70-100 [facility] Comment on above: Order Comment: REY Marge Campbell JAK PORRAS,WEN,1606 Result Comment: [place] Glucose Reference Range is dependent on time and content of last meal. Glucose of more than 200 mg/dL in a nonstressed, ambulatory subject supports the diagnosis of Diabetes Mellitus. ADA recommended reference range Performed By: #### C BC, CMP #### [facility] [address] [place] [address] [place] Potassium [Moles/Vol] 4.0 mmol/L Normal 3.5-5.1 [facility] Comment on above: Order Comment: REY Marge Adrian PORRAS,WEN,1606 Performed By: #### C BC, CMP #### [facility] [address] [place] [id number] [place] Protein [Mass/Vol] 7.8 g/dL Normal 6.4-8.9 [facility] Comment on above: Order Comment: REY Marge Adrian PORRAS,WEN,1606 Performed By: #### C BC, CMP #### [facility] [address] [place] [address] [place] Sodium [Moles/Vol] 141 mmol/L Normal 136-145 [facility] Comment on above: Order Comment: REY Marge Adrian PORRAS,WEN,1606 Performed By: #### C BC, CMP #### [facility] [address] [place] [id number] [place] Urea nitrogen [Mass/Vol] 15 mg/dL Normal 7-25 [facility] Comment on above: Order Comment: REY Marge Campbell JAK PORRAS,WEN,1606 Performed By: #### C BC, CMP #### [facility] [address] [place] [address] [place] IGP,APTIMA HPV,AGE GDLNon AGE GDLN ACOG TESTING Note . [facility] Comment on above: TESTS RESULT FLAG UN ITS REF RANGE LAB Clinician Provided Cytology Information Source.............Cervix;Endocervix No. of containers..01 ThinPrep Vial Age Gigi WILDE Tona... FLAG LEGEND: L-Low Normal,H-High Normal,LL-Alert Low,HH-Alert High <-Panic Low,>-Panic High,A-Abnormal,AA-Critical Abnormal Performed at: 01 =[address] [address] Farzana Hennessy MD, HPV APTIMA Negative Negative [facility] Comment on above: This nucleic acid am plification test detects fourteen high- risk HPV types (16,18,31,33,35,39,45,51,52,56,58,59,66,68) without differentiation. Performed at: =[address] [id number] Service Center Manager: Farzana Hennessy MD, Phone: [phone] Performed at: [facility] [address] [place] [id number] Service Center Manager: Scott Sandoval MD, Phone: [phone] IGP, APTIMA HPV, RFX 16/18,[address] [facility] Comment on above: TESTS RESULT FLAG UN ITS REF RANGE LAB DIAGNOSIS: 02 NEGATIVE FOR INTRAEPITHELIAL LESION OR MALIGNANCY. Specimen adequacy: 02 Satisfactory for evaluation. Endocervical and/or squamous metaplastic cells (endocervical component) are present. Performed by: 02 Adelaida Bustamante, Manager Of Pharmacy ([facility]) . 02 Note: Note 03 The [...] High,A-Abnormal,AA-Critical Abnormal Performed at: 02 [facility] [address] [place] [address] Scott Sandoval MD, 03 WB [facility] [address] [address] Farzana Hennessy MD, BROOM-ALONE CERVIX ENDOCERVIX [facility] Urinalysis macro (dipstick) panel (U)on 01-28-2024 Bilirubin, UA Negative Negative - 4(70) +++ mg/dL [facility] Blood, UA Negative Negative - 50 Kranthi/mcL [facility] Clarity, UA Clear [facility] Color, UA Dark Tania [facility] Glucose, UA Negative Negative - 2000(110) ++++ mg/dL [facility] Interpretation and review of laboratory results Abnormal [facility] Ketones, UA Negative Negative - 160(16) ++++ mg/dL [facility] Leukocytes, UA Trace Negative - 500+++ Radha/mcL [facility] Nitrite, UA Negative Negative - Positive [facility] pH, UA 5.5 5 - 9 [facility] Protein, UA Negative Negative - 2000(20) ++++ mg/dL [facility] Spec Grav, UA 1.025 1 - 1.03 [facility] Urobilinogen, UA 0.2 0.2 - 12 mg/dL [facility] MHPT CULT,URINEon 01-23-2024 Interpretation and review of laboratory results [facility] Spec[facility] Description .CLEAN CATCH URINE [facility] MHPT CULT,URINE Culture ESCHERICHIA COLI >100,000 CFU/ML [facility] STREPTOCOCCI, BETA HEMOLYTIC GROUP B 10 to 50,000 CFU/ML [facility] Report Status FINAL 01/23/2024 [facility] MHPT CULT,URINE SUSCEPTIBILITY [facility]PT CULT,URINE Organism ESCHERICHIA COLI [facility] Method CROW [facility]PT CULT,URINE Ampicillin 16 INTERMEDIATE Intermediate [facility] Cefazolin <=4 SUSCEPTIBLE Susceptible [facility] Cefazolin sensitivit y results can be used to predict the effectiveness of oral Susceptible [facility] cephalosporins (eg. Cephalexin) in uncomplicated Urinary Tract Infections due Susceptible [facility] to E. coli, K. pneumoniae, and P. mirabilis Susceptible [facility] MHPT CULT,URINE Ceftriaxone <=0.[address] [facility]PT CULT,URINE Negative Susceptible [facility]PT CULT,URINE Gentamicin <=1 SUSCEPTIBLE Susceptible [facility] Levofloxacin <=0.12 SUSCEPTIBLE Susceptible [facility] Nitrofurantoin <=[address] [facility] MHPT CULT,URINE Piperacillin/Tazobac ta m <=4 SUSCEPTIBLE Susceptible [facility] Tobramycin <=1 SUSCEPTIBLE Susceptible [facility] Trimethoprim/Sulfa <=[address] [facility] Original Ordering Provider: RICHA DAVENPORT [facility] ALL BASIC METABOLIC PANELon 01-05-2024 Anion gap [Moles/Vol] 11.1 mmol/L [facility] Calcium [Mass/Vol] 9.2 mg/dL 8.5 - 10. 1 mg/dL [facility] Chloride [Moles/Vol] 105 mmol/L 98 - 10 7 mmol/L [facility] CO2 [Moles/Vol] 28.0 mmol/L 21.0 - 32.0 mmol/L [facility] Creatinine [Mass/Vol] 1.08 mg/dL High 0.55 - 1.02 mg/dL [facility] GFR/1.73 sq M.predicted CKD-EPI (S/P/Bld) [Vol rate/Area] >60 60 - PINF [facility] Glucose [Mass/Vol] 92 mg/dL 74 - 106 mg/dL [facility] Interpretation and review of laboratory results Abnormal [facility] Potassium [Moles/Vol] 4.1 mmol/L 3.5 - 5.1 mmol/L [facility] Sodium [Moles/Vol] 140 mmol/L 136 - 145 mmol/L [facility] TBH EGFR-NON AF GERMAN 51 Low 60 - PINF [facility] Urea nitrogen [Mass/Vol] 17.0 mg/dL 7.0 - 18.0 mg/dL [facility] Urea nitrogen/Creatinine [Mass ratio] 15.7 mg/mg [facility] Amphetamine Screen Ql (U)Ord ered By: Jace Graham on 03-23-2023 Amphetamines Ql (U) Negative Negative [facility] Barbiturates [Presence] in U rine by Screen methodOrdered By: Jace Graham on 03-23-2023 Barbiturates Screen Ql (U) Negative Negative [facility] Benzodiazepines Screen Ql (U )Ordered By: Jace Graham on 03-23-2023 Benzodiazepines Ql (U) Negative Negative [facility] Benzoylecgonine [Presence] i n Urine by Screen methodOrdered By: Jace Graham on 03-23-2023 Benzoylecgonine Screen Ql (U) Negative Negative [facility] Cannabinoids [Presence] in U rine by Screen methodOrdered By: Jace Graham on 03-23-2023 Cannabinoids Screen Ql (U) Negative Negative [facility] Comment on above: These are unconfirme d results and should not be used for legal purposes. Drug Cut-Off Concentration: AMPH 1000 ng/mL ELKIN 200 ng/mL ATIYA 200 ng/mL COCM 300 ng/mL OP 300 ng/mL PCP 25 ng/mL THC 20 ng/mL Opiates [Presence] in Urine by Screen methodOrdered By: Jace Graham on 03-23-2023 Opiates Screen Ql (U) Negative Negative [facility] Phencyclidine Screen Ql (U)O rdered By: Jace Graham on 03-23-2023 Phencyclidine Ql (U) Negative Negative [facility] Cholesterol [Mass/volume] in Serum or PlasmaOrdered By: Eduardo Monk on 11-18-2022 Cholesterol [Mass/Vol] 159 mg/dL 140-200 [facility] Comment on above: Chol less than 200 m g/dl low riskChol 201-239 mg/dl borderline riskChol 240 mg/dl and greater high risk Cholesterol in LDL Calc [Mas s/Vol]Ordered By: Eduardo Monk on 11-18-2022 Cholesterol in LDL [Mass/Vol] 84 mg/dL 0-100 [facility] Comment on above: LDL ATP III CLASSIFI CATIONLDL less than 100 mg/dL OptimalLDL 100-129 mg/dL Near or above optimalLDL 130-159 mg/dL Borderline highLDL 160-189 mg/dL HighLDL greater than 189 mg/dL Very high Cholesterol in VLDL Calc [Ma ss/Vol]Ordered By: Eduardo Monk on 11-18-2022 Cholesterol in VLDL [Mass/Vol] 28 mg/dL [facility] Serum or plasma high density lipoprotein (HDL) cholesterol measurementOrdered By: Eduardo Monk on 11-18-2022 Cholesterol in HDL [Mass/Vol] 46 mg/dL 23-92 [facility] Comment on above: HDL CHOL ATP-III CLA SSIFICATION Cardiovascular RiskHDL > or equal to 60 mg/dL LOWHDL < 40 mg/dL HIGH Serum or plasma total choles terol/high density lipoprotein (HDL) cholesterol mass ratOrdered By: Eduardo Monk on 11-18-2022 Cholesterol.total/Chol esterol in HDL [Mass ratio] 3.5 {ratio} <5.0 [facility] Thyrotropin [Units/volume] i n Serum or PlasmaOrdered By: Eduardo Monk on 11-18-2022 TSH Qn 2.13 m[IU]/L 0.45-5.33 [facility] Triglyceride [Mass/volume] i n Serum or PlasmaOrdered By: Eduardo Monk on 11-18-2022 Triglyceride [Mass/Vol] 144 mg/dL 0-149 [facility] Comment on above: TRIG ATP III CLASSIF ICATIONTRIG less than 150 mg/dL NormalTRIG 150-199 mg/dL Borderline highTRIG 200-500 mg/dL High TRIG greater than 500 mg/dL Very highStandard traceable to the Center for Disease Conrtrol and Prevention (CDC) test method. Vitamin D+Metabolites [Mass/ volume] in Serum or PlasmaOrdered By: Eduardo Monk on 11-18-2022 Vitamin D+Metabolites [Mass/Vol] 50.4 ng/mL 30-100 [facility] Comment on above: VITAMIN D STATUS 25( [place])VITAMIN D RANGE (ng/mL) Deficient <20 Insufficient 20 to <30Sufficient 30 to 100Reference: Bin MF,Laksmhi CABRERA, Cristian SMART, et al. Evaluation,treatment, and prevention of vitamin D deficiency; an Endocrine Society clinical practice guideline. JCEM. 2010; 96(7):1911-30. CBC AUTO DIFFon 07-25-2022 BASO # 0.1 103/ul Normal 0.0-0.1 [facility] Comment on above: Performed By: #### A 1C #### [facility] [address] [place] [address] [address] Bebeto Alvarado Basophils/100 WBC (Bld) 0.6 % Normal 0.2-2.0 [facility] Comment on above: Performed By: #### A 1C #### [facility] [address] [place] [address] [address] Bebeto Alvarado EO # 0.2 103/ul Normal 0.0-0.7 [facility] Comment on above: Performed By: #### A 1C #### [facility] [address] [place] [address] Dr. Bebeto Alvarado Eosinophils/100 WBC (Bld) 2.3 % Normal 0.9-7.0 [facility] Comment on above: Performed By: #### A 1C #### [facility] [address] [place] [address] Dr. Bebeto Alvarado Erythrocyte distribution width (RBC) [Ratio] 13.8 % Normal 11.0-15.0 [facility] Comment on above: Performed By: #### A 1C #### [facility] [address] [place] [address] Dr. Bebeto Alvarado Hematocrit (Bld) [Volume fraction] 41.2 % Normal 36.0-48.0 [facility] Comment on above: Performed By: #### A 1C #### [facility] [address] [place] [address] Dr. Bebeto Alvarado Hemoglobin (Bld) [Mass/Vol] 13.2 g/dL Normal 12.0-16.0 [facility] Comment on above: Performed By: #### A 1C #### [facility] [address] [place] [address] Dr. Bebeto Alvarado IG # 0.03 10e3/ul Normal 0.00-0.03 [facility] Comment on above: Performed By: #### A 1C #### [facility] [address] [place] [address] Dr. Bebeto Alvarado IG % 0.4 % Normal 0.0-0.5 [facility] Comment on above: Performed By: #### A 1C #### [facility] [address] [place] [address] Dr. Bebeto Alvarado LYMPH # 2.1 103/ul Normal 1.2-3.8 [facility] Comment on above: Performed By: #### A 1C #### [facility] [address] [place] [address] Dr. Bebeto Alvarado Lymphocytes/100 WBC (Bld) 25.9 % Normal 20.5-60.0 [facility] Comment on above: Performed By: #### A 1C #### [facility] [address] [place] [address] Dr. Bebeto Alvarado MANUAL DIFF REQ NO Normal [facility] Comment on above: Performed By: #### A 1C #### [facility] [address] [place] [address] Dr. Bebeto Alvarado MCH (RBC) [Entitic mass] 28.0 pg Normal 26.7-34.0 [facility] Comment on above: Performed By: #### A 1C #### [facility] [address] [place] [address] Dr. Bebeto Alavrado MCHC (RBC) [Mass/Vol] 32.0 g/dL Normal 29.9-35.2 [facility] Comment on above: Performed By: #### A 1C #### [facility] [address] [place] [address] Dr. Bebeto Alvarado MCV (RBC) [Entitic vol] 87.5 fL Normal 81.0-99.0 [facility] Comment on above: Performed By: #### A 1C #### [facility] [address] [place] [address] Dr. Bebeto Alvarado MONO # 0.5 103/ul Normal 0.3-0.8 [facility] Comment on above: Performed By: #### A 1C #### [facility] [address] [place] [address] Dr. Bebeto Alvarado Monocytes/100 WBC (Bld) 6.6 % Normal 1.7-12.0 [facility] Comment on above: Performed By: #### A 1C #### [facility] [address] [place] [address] Dr. Bebeto Alvarado NEUT # 5.1 103/ul Normal 1.4-6.5 [facility] Comment on above: Performed By: #### A 1C #### [facility] [address] [place] [address] Dr. Bebeto Alvarado Neutrophils/100 WBC (Bld) 64.2 % Normal 43.0-75.0 [facility] Comment on above: Performed By: #### A 1C #### [facility] [address] [place] [address] Dr. Bebeto Alvarado Platelet mean volume (Bld) [Entitic vol] 11.2 fL Normal 9.5-13.5 [facility] Comment on above: Performed By: #### A 1C #### [facility] [address] [place] [address] Dr. Bebeto Alvarado PLT 252 103/ul Normal 150-450 [facility] Comment on above: Performed By: #### A 1C #### [facility] [address] [place] [address] Dr. Bebeto Alvarado RBC 4.71 106/ul Normal 4.20-5.40 [facility] Comment on above: Performed By: #### A 1C #### [facility] [address] [place] [address] Dr. Bebeto Alvarado WBC 8.0 103/ul Normal 4.0-11.0 [facility] Comment on above: Performed By: #### A 1C #### [facility] [address] [place] [address] Dr. Bebeto Alvarado GLYCOHEMOGLOBIN A1Con 2022 ADA RECOMMENDATION SEE BELOW Normal [facility] Comment on above: Result Comment: ADA RECOMMENDED LIMIT 4.0 - 6.0 ADA THERAPEUTIC TARGET < 7.0 ACTION SUGGESTED > 7.0 Performed By: #### A 1C #### [facility] [address] [place] [address] Dr. Bbeeto Alvarado Glucose [Mass/Vol] 114 mg/dL Normal [facility] Comment on above: Performed By: #### A 1C #### [facility] [address] [place] [address] Dr. Bebeto Alvarado HbA1c (Bld) [Mass fraction] 5.6 % Normal 4.5-6.2 [facility] Comment on above: Performed By: #### A 1C #### [facility] [address] [place] [address] Dr. Bebeto Alvarado IRONon 07-25-2022 Iron [Mass/Vol] 60.0 ug/dL Normal 50.0-170.0 [facility] Comment on above: Performed By: #### V ITB12, IRON #### [facility] [address] [address] [address] Bebeto Alvarado LIPID PROFILEon 07-25-2022 CHOL-HDL RATIO NORM SEE BELOW Normal [facility] Comment on above: Result Comment: 3.3 - 4.4 LOW RISK 4.4 - 7.1 AVERAGE RISK 7.1 - 11.0 MODERATE RISK >11.0 HIGH RISK Performed By: #### C MP, LIPID #### [facility] [address] [address] [address] Bebeto Alvarado Cholesterol [Mass/Vol] 144 mg/dL Normal <=200 [facility] Comment on above: Performed By: #### C MP, LIPID #### [facility] [address] [address] [address] Bebeto Alvarado Cholesterol in HDL [Mass/Vol] 39 mg/dL Critically low 40-60 [facility] Comment on above: Performed By: #### C MP, LIPID #### [facility] [address] [address] [address] Bebeto Alvarado Cholesterol in LDL [Mass/Vol] 74.6 mg/dL Normal [facility] Comment on above: Performed By: #### C MP, LIPID #### [facility] [address] [address] [address] Bebeto Alvarado Cholesterol.total/Chol esterol in HDL [Mass ratio] 3.7 {ratio} Normal [facility] Comment on above: Performed By: #### C MP, LIPID #### [facility] [address] [address] [address] Bebeto Alvarado HDL NORMAL > or = 60 mg/dl - LO W CARDIOVASCULAR RISK <40 mg/dl - HIGH CARDIOVASCULAR RISK Normal [facility] Comment on above: Performed By: #### C MP, LIPID #### [facility] [address] [place] [address] Dr. Bebeto Alvarado LDL CALC NORMAL SEE BELOW Normal [facility] Comment on above: Result Comment: <100 mg/dl OPTIMAL 100 - 129 mg/dl NEAR OR ABOVE OPTIMAL 130 - 159 mg/dl BORDERLINE HIGH 160 - 189 mg/dl HIGH >190 mg/dl VERY HIGH Performed By: #### C MP, LIPID #### [facility] [address] [place] [address] Dr. Bebeto Alvarado Triglyceride [Mass/Vol] 152 mg/dL Critically high <=150 [facility] Comment on above: Performed By: #### C MP, LIPID #### [facility] [address] [address] [address] Bebeto Alvarado VLDL CALC 30.4 mg/dL Normal [facility] Comment on above: Performed By: #### C MP, LIPID #### [facility] [address] [address] [address] Bebeto Alvarado PROF 14(COMP METB)on 023 Albumin [Mass/Vol] 3.7 g/dL Normal 3.4-5.0 [facility] Comment on above: Performed By: #### C MP, LIPID #### [facility] [address] [place] [address] Dr. Bebeto Alvarado Albumin/Globulin [Mass ratio] 0.9 {ratio} Normal [facility] Comment on above: Performed By: #### C MP, LIPID #### [facility] [address] [place] [address] Dr. Bebeto Alvarado ALP [Catalytic activity/Vol] 90 U/L Normal 46-116 [facility] Comment on above: Performed By: #### C MP, LIPID #### [facility] [address] [place] [address] Dr. Bebeto Alvarado ALT [Catalytic activity/Vol] 38 U/L Normal 14-59 [facility] Comment on above: Performed By: #### C MP, LIPID #### [facility] [address] [place] [address] Dr. Bebeto Alvarado Anion gap [Moles/Vol] 12.1 mmol/L Normal [facility] Comment on above: Performed By: #### C MP, LIPID #### [facility] [address] [place] [address] Dr. Bebeto Alvarado AST [Catalytic activity/Vol] 26 U/L Normal 15-37 [facility] Comment on above: Performed By: #### C MP, LIPID #### [facility] [address] [address] [address] Bebeto Alvarado Bilirubin [Mass/Vol] 0.3 mg/dL Normal 0.2-1.0 [facility] Comment on above: Performed By: #### C MP, LIPID #### [facility] [address] [place] [address] Dr. Bebeto Alvarado Calcium [Mass/Vol] 9.3 mg/dL Normal 8.5-10.1 [facility] Comment on above: Performed By: #### C MP, LIPID #### [facility] [address] [place] [address] Dr. Bebeto Alvarado Chloride [Moles/Vol] 107 mmol/L Normal 98-107 [facility] Comment on above: Performed By: #### C MP, LIPID #### [facility] [address] [place] [address] Dr. Bebeto Alvarado CO2 [Moles/Vol] 27.9 mmol/L Normal 21.0-32.0 [facility] Comment on above: Performed By: #### C MP, LIPID #### [facility] [address] [place] [address] Dr. Bebeto Alvarado Creatinine [Mass/Vol] 0.95 mg/dL Normal 0.55-1.02 [facility] Comment on above: Performed By: #### C MP, LIPID #### [facility] [address] [place] [address] Dr. Bebeto Alvarado EGFR-AF GERMAN >60 Normal >=60 [facility] Comment on above: Performed By: #### C MP, LIPID #### [facility] [address] [place] [address] Dr. Bebeto Alvarado EGFR-NON AF GERMAN 60 mL/min/1.73m2 Normal >=60 [facility] Comment on above: Performed By: #### C MP, LIPID #### [facility] [address] [place] [address] Dr. Bebeto Alvarado Globulin (S) [Mass/Vol] 3.9 g/dL Normal [facility] Comment on above: Performed By: #### C MP, LIPID #### [facility] [address] [address] [address] Bebeto Alvarado Glucose [Mass/Vol] 108 mg/dL Critically high 74-106 [facility] Comment on above: Performed By: #### C MP, LIPID #### [facility] [address] [address] [address] Bebeto Alvarado Potassium [Moles/Vol] 4.0 mmol/L Normal 3.5-5.1 [facility] Comment on above: Performed By: #### C MP, LIPID #### [facility] [address] [place] [address] Dr. Bebeto Alvarado Protein [Mass/Vol] 7.6 g/dL Normal 6.4-8.2 [facility] Comment on above: Performed By: #### C MP, LIPID #### [facility] [address] [place] [address] Dr. Bebeto Alvarado Sodium [Moles/Vol] 143 mmol/L Normal 136-145 [facility] Comment on above: Performed By: #### C MP, LIPID #### [facility] [address] [place] [address] Dr. Bebeto Alvarado Urea nitrogen [Mass/Vol] 15.0 mg/dL Normal 7.0-18.0 [facility] Comment on above: Performed By: #### C MP, LIPID #### [facility] [address] [place] [address] Dr. Bebeto Alvarado Urea nitrogen/Creatinine [Mass ratio] 15.8 mg/mg Normal [facility] Comment on above: Performed By: #### C MP, LIPID #### [facility] [address] [place] [address] Dr. Bebeto Alvarado UA RANDOM W/MICROSCOPICon BACTERIA NONE SEEN Normal NONE SEEN [facility] Comment on above: Performed By: #### A 1C #### [facility] [address] [place] [address] Dr. Bebeto Alvarado Bilirubin Ql (U) Negative Normal NEGATIVE [facility] Comment on above: Performed By: #### A 1C #### [facility] [address] [place] [address] Dr. Bebeto Alvarado CAST NONE SEEN Normal NONE SEEN [facility] Comment on above: Performed By: #### A 1C #### [facility] [address] [place] [address] Dr. Bebeto Alvarado Clarity (U) CLEAR Normal CLEAR [facility] Comment on above: Performed By: #### A 1C #### [facility] [address] [place] [address] Dr. Bebeto Alvarado Color (U) YELLOW Normal YELLOW [facility] Comment on above: Performed By: #### A 1C #### [facility] [address] [place] [address] Dr. Bebeto Alvarado Crystals LM Nom (Urine sed) NONE SEEN Normal NONE SEEN [facility] Comment on above: Performed By: #### A 1C #### [facility] [address] [place] [address] Dr. Bebeto Alvarado Epithelial cells LM Ql (Urine sed) NONE SEEN Normal NONE SEEN /RARE [facility] Comment on above: Performed By: #### A 1C #### [facility] [address] [place] [address] Dr. Bebeto Alvarado Glucose Ql (U) Negative Normal NEGATIVE [facility] Comment on above: Performed By: #### A 1C #### [facility] [address] [place] [address] Dr. Bebeto Alvarado Hemoglobin Ql (U) Negative Normal NEGATIVE [facility] Comment on above: Performed By: #### A 1C #### [facility] [address] [place] [address] Dr. Bebeto Alvarado Ketones Ql (U) Negative Normal NEGATIVE [facility] Comment on above: Performed By: #### A 1C #### [facility] [address] [place] [address] Dr. Bebeto Alvarado LEUKOCYTES Negative Normal NEGATIVE [facility] Comment on above: Performed By: #### A 1C #### [facility] [address] [place] [address] Dr. Bebeto Alvarado MUCOUS NONE SEEN Normal NONE SEEN [facility] Comment on above: Performed By: #### A 1C #### [facility] [address] [place] [address] Dr. Bebeto Alvarado Nitrite Ql (U) Negative Normal NEGATIVE The [facility] Comment on above: Performed By: #### A 1C #### [facility] [address] [place] [address] Dr. Bebeto Alvarado pH (U) 5.5 [pH] Normal 5-9 [facility] Comment on above: Performed By: #### A 1C #### [facility] [address] [place] [address] Dr. Bebeto Alvarado RBC NONE SEEN Abnormal 0-2 [facility] Comment on above: Performed By: #### A 1C #### [facility] [address] [place] [address] Dr. Bebeto Alvarado SPEC GRAVITY 1.030 Abnormal 1.005-<=1.02 5 [facility] Comment on above: Performed By: #### A 1C #### [facility] [address] [place] [address] Dr. Bebeto Alvarado UA PROTEIN Negative Normal NEGATIVE/ TRACE [facility] Comment on above: Performed By: #### A 1C #### [facility] [address] [place] [address] Dr. Bebeto Alvarado Urobilinogen Qn (U) 0.2 {Katerin'U}/dL Normal 0.2 - 1. 0 [facility] Comment on above: Performed By: #### A 1C #### [facility] [address] [place] [address] Dr. Bebeto Alvarado WBC NONE SEEN Normal NONE SEEN [facility] Comment on above: Performed By: #### A 1C #### [facility] [address] [place] [address] Dr. Bebeto Alvarado VITAMIN B12on 07-25-2022 Cobalamin (Vitamin B12) [Mass/Vol] 1684.0 pg/mL Critically high 193.0-986.0 [facility] Comment on above: Performed By: #### V ITB12, IRON #### [facility] [address] [place], [place] [id number] Dr. Bebeto Alvarado PROF CHEM 8 (BAS METB)on Anion gap [Moles/Vol] 12.2 mmol/L Normal [facility] Comment on above: Performed By: #### B MP #### [facility] [address] [place] [address] Dr. Bebeto Alvarado Calcium [Mass/Vol] 8.9 mg/dL Normal 8.5-10.1 [facility] Comment on above: Performed By: #### B MP #### [facility] [address] [place] [address] Dr. Bebeto Alvarado Chloride [Moles/Vol] 105 mmol/L Normal 98-107 [facility] Comment on above: Performed By: #### B MP #### [facility] [address] [place] [address] Dr. Bebeto Alvarado CO2 [Moles/Vol] 29.6 mmol/L Normal 21.0-32.0 [facility] Comment on above: Performed By: #### B MP #### [facility] [address] [place] [address] Dr. Bebeto Alvarado Creatinine [Mass/Vol] 0.95 mg/dL Normal 0.55-1.02 [facility] Comment on above: Performed By: #### B MP #### [facility] [address] [place] [address] Dr. Bebeto Alvarado EGFR-AF GERMAN >60 Normal >=60 [facility] Comment on above: Performed By: #### B MP #### [facility] [address] [place] [address] Dr. Bebeto Alvarado EGFR-NON AF GERMAN 60 mL/min/1.73m2 Normal >=60 [facility] Comment on above: Performed By: #### B MP #### [facility] [address] [place] [address] Dr. Bebeto Alvarado Glucose [Mass/Vol] 101 mg/dL Normal 74-106 [facility] Comment on above: Performed By: #### B MP #### [facility] [address] [place] [address] Dr. Bebeto Alvarado Potassium [Moles/Vol] 3.8 mmol/L Normal 3.5-5.1 [facility] Comment on above: Performed By: #### B MP #### [facility] [address] [place] [address] Dr. Bebeto Alvarado Sodium [Moles/Vol] 143 mmol/L Normal 136-145 [facility] Comment on above: Performed By: #### B MP #### [facility] [address] [place] [address] Dr. Bebeto Alvarado Urea nitrogen [Mass/Vol] 16.0 mg/dL Normal 7.0-18.0 [facility] Comment on above: Performed By: #### B MP #### [facility] [address] [place] [address] Dr. Bebeto Alvarado Urea nitrogen/Creatinine [Mass ratio] 16.8 mg/mg Normal [facility] Comment on above: Performed By: #### B MP #### [facility] [address] [place] [address] Dr. Bebeto Alvarado CBC AUTO DIFFon 11-21-2021 BASO # 0.1 103/ul Normal 0.0-0.1 [facility] Comment on above: Performed By: #### A 1C #### [facility] [address] [place] [address] Dr. Bebeto Alvarado Basophils/100 WBC (Bld) 1.0 % Normal 0.2-2.0 [facility] Comment on above: Performed By: #### A 1C #### [facility] [address] [place] [address] Dr. Bebeto Alvarado EO # 0.2 103/ul Normal 0.0-0.7 [facility] Comment on above: Performed By: #### A 1C #### [facility] [address] [place] [address] Dr. Bebeto Alvarado Eosinophils/100 WBC (Bld) 3.3 % Normal 0.9-7.0 [facility] Comment on above: Performed By: #### A 1C #### [facility] [address] [place] [address] Dr. Bebeto Alvarado Erythrocyte distribution width (RBC) [Ratio] 13.8 % Normal 11.0-15.0 [facility] Comment on above: Performed By: #### A 1C #### [facility] [address] [place] [address] Dr. Bebeto Alvarado Hematocrit (Bld) [Volume fraction] 38.8 % Normal 36.0-48.0 [facility] Comment on above: Performed By: #### A 1C #### [facility] [address] [place] [address] Dr. Bebeto Alvarado Hemoglobin (Bld) [Mass/Vol] 12.5 g/dL Normal 12.0-16.0 [facility] Comment on above: Performed By: #### A 1C #### [facility] [address] [place] [address] Dr. Bebeto Alvarado IG # 0.02 10e3/ul Normal 0.00-0.03 [facility] Comment on above: Performed By: #### A 1C #### [facility] [address] [place] [address] Dr. Bebeto Alvarado IG % 0.3 % Normal 0.0-0.5 [facility] Comment on above: Performed By: #### A 1C #### [facility] [address] [place] [address] Dr. Bebeto Alvarado LYMPH # 1.9 103/ul Normal 1.2-3.8 [facility] Comment on above: Performed By: #### A 1C #### [facility] [address] [place] [address] Dr. Bebeto Alvarado Lymphocytes/100 WBC (Bld) 29.6 % Normal 20.5-60.0 [facility] Comment on above: Performed By: #### A 1C #### [facility] [address] [place] [address] Dr. Bebeto Alvarado MANUAL DIFF REQ NO Normal [facility] Comment on above: Performed By: #### A 1C #### [facility] [address] [place] [address] Dr. Bebeto Alvarado MCH (RBC) [Entitic mass] 28.0 pg Normal 26.7-34.0 [facility] Comment on above: Performed By: #### A 1C #### [facility] [address] [place] [address] Dr. Bebeto Alvarado MCHC (RBC) [Mass/Vol] 32.2 g/dL Normal 29.9-35.2 [facility] Comment on above: Performed By: #### A 1C #### [facility] [address] [place] [address] Dr. Bebeto Alvarado MCV (RBC) [Entitic vol] 86.8 fL Normal 81.0-99.0 [facility] Comment on above: Performed By: #### A 1C #### [facility] [address] [place] [address] Dr. Bebeto Alvarado MONO # 0.4 103/ul Normal 0.3-0.8 [facility] Comment on above: Performed By: #### A 1C #### [facility] [address] [place] [address] Dr. Bebeto Alvarado Monocytes/100 WBC (Bld) 5.7 % Normal 1.7-12.0 [facility] Comment on above: Performed By: #### A 1C #### [facility] [address] [place] [address] Dr. Bebeto Alvarado NEUT # 3.8 103/ul Normal 1.4-6.5 [facility] Comment on above: Performed By: #### A 1C #### [facility] [address] [place] [address] Dr. Bebeto Alvarado Neutrophils/100 WBC (Bld) 60.1 % Normal 43.0-75.0 [facility] Comment on above: Performed By: #### A 1C #### [facility] [address] [place] [address] Dr. Bebeto Alvarado Platelet mean volume (Bld) [Entitic vol] 11.0 fL Normal 9.5-13.5 [facility] Comment on above: Performed By: #### A 1C #### [facility] [address] [place] [address] Dr. Bebeto Alvarado PLT 264 103/ul Normal 150-450 [facility] Comment on above: Performed By: #### A 1C #### [facility] [address] [address] [address] Bebeto Alvarado RBC 4.47 106/ul Normal 4.20-5.40 [facility] Comment on above: Performed By: #### A 1C #### [facility] [address] [address] [address] Bebeto Alvarado WBC 6.3 103/ul Normal 4.0-11.0 [facility] Comment on above: Performed By: #### A 1C #### [facility] [address] [address] [address] Bebeto Alvarado GLYCOHEMOGLOBIN A1Con 2021 ADA RECOMMENDATION SEE BELOW Normal [facility] Comment on above: Result Comment: ADA RECOMMENDED LIMIT 4.0 - 6.0 ADA THERAPEUTIC TARGET < 7.0 ACTION SUGGESTED > 7.0 Performed By: #### A 1C #### [facility] [address] [address] [address] Bebeto Alvarado Glucose [Mass/Vol] 105 mg/dL Normal [facility] Comment on above: Performed By: #### A 1C #### [facility] [address] [address] [address] Bebeto Alvarado HbA1c (Bld) [Mass fraction] 5.3 % Normal 4.5-6.2 [facility] Comment on above: Performed By: #### A 1C #### [facility] [address] [address] [address] Bebeto Alvarado IRONon 11-21-2021 Iron [Mass/Vol] 59.0 ug/dL Normal 50.0-170.0 [facility] Comment on above: Performed By: #### A 1C #### [facility] [address] [place] [address] Dr. Bebeto Alvarado LIPID PROFILEon 11-21-2021 CHOL-HDL RATIO NORM SEE BELOW Normal [facility] Comment on above: Result Comment: 3.3 - 4.4 LOW RISK 4.4 - 7.1 AVERAGE RISK 7.1 - 11.0 MODERATE RISK >11.0 HIGH RISK Performed By: #### C MP, LIPID #### [facility] [address] [address] [address] Bebeto Alvarado Cholesterol [Mass/Vol] 139 mg/dL Normal <=200 [facility] Comment on above: Performed By: #### C MP, LIPID #### [facility] [address] [address] [address] Bebeto Alvarado Cholesterol in HDL [Mass/Vol] 35 mg/dL Critically low 40-60 [facility] Comment on above: Performed By: #### C MP, LIPID #### [facility] [address] [address] [address] Bebeto Alvarado Cholesterol in LDL [Mass/Vol] 69.6 mg/dL Normal [facility] Comment on above: Performed By: #### C MP, LIPID #### [facility] [address] [address] [address] Bebeto Alvarado Cholesterol.total/Chol esterol in HDL [Mass ratio] 4.0 {ratio} Normal [facility] Comment on above: Performed By: #### C MP, LIPID #### [facility] [address] [address] [address] Bebeto Alvarado HDL NORMAL > or = 60 mg/dl - LO W CARDIOVASCULAR RISK <40 mg/dl - HIGH CARDIOVASCULAR RISK Normal [facility] Comment on above: Performed By: #### C MP, LIPID #### [facility] [address] [address] [address] Bebeto Alvarado LDL CALC NORMAL SEE BELOW Normal [facility] Comment on above: Result Comment: <100 mg/dl OPTIMAL 100 - 129 mg/dl NEAR OR ABOVE OPTIMAL 130 - 159 mg/dl BORDERLINE HIGH 160 - 189 mg/dl HIGH >190 mg/dl VERY HIGH Performed By: #### C MP, LIPID #### [facility] [address] [address] [address] Bebeto Alvarado Triglyceride [Mass/Vol] 172 mg/dL Critically high <=150 [facility] Comment on above: Performed By: #### C MP, LIPID #### [facility] [address] [address] [address] Bebeto Alvarado VLDL CALC 34.4 mg/dL Normal [facility] Comment on above: Performed By: #### C MP, LIPID #### [facility] [address] [place] [address] Dr. Bebeto Alvarado PROF 14(COMP METB)on 022 Albumin [Mass/Vol] 3.8 g/dL Normal 3.4-5.0 [facility] Comment on above: Performed By: #### C MP, LIPID #### [facility] [address] [place] [address] Dr. Bebeto Alvarado Albumin/Globulin [Mass ratio] 1.1 {ratio} Normal [facility] Comment on above: Performed By: #### C MP, LIPID #### [facility] [address] [place] [address] Dr. Bebeto Alvarado ALP [Catalytic activity/Vol] 96 U/L Normal 46-116 [facility] Comment on above: Performed By: #### C MP, LIPID #### [facility] [address] [place] [address] Dr. Bebeto Alvarado ALT [Catalytic activity/Vol] 25 U/L Normal 14-59 [facility] Comment on above: Performed By: #### C MP, LIPID #### [facility] [address] [place] [address] Dr. Bebeto Alvarado Anion gap [Moles/Vol] 11.8 mmol/L Normal [facility] Comment on above: Performed By: #### C MP, LIPID #### [facility] [address] [place] [address] Dr. Bebeto Alvarado AST [Catalytic activity/Vol] 20 U/L Normal 15-37 [facility] Comment on above: Performed By: #### C MP, LIPID #### [facility] [address] [place] [address] Dr. Bebeto Alvarado Bilirubin [Mass/Vol] 0.4 mg/dL Normal 0.2-1.0 [facility] Comment on above: Performed By: #### C MP, LIPID #### [facility] [address] [place] [address] Dr. Bebeto Alvarado Calcium [Mass/Vol] 8.8 mg/dL Normal 8.5-10.1 [facility] Comment on above: Performed By: #### C MP, LIPID #### [facility] [address] [place] [address] Dr. Bebeto Alvarado Chloride [Moles/Vol] 106 mmol/L Normal 98-107 [facility] Comment on above: Performed By: #### C MP, LIPID #### [facility] [address] [place] [address] Dr. Bebeto Alvarado CO2 [Moles/Vol] 27.0 mmol/L Normal 21.0-32.0 [facility] Comment on above: Performed By: #### C MP, LIPID #### [facility] [address] [place] [address] Dr. Bebeto Alvarado Creatinine [Mass/Vol] 0.97 mg/dL Normal 0.55-1.02 [facility] Comment on above: Performed By: #### C MP, LIPID #### [facility] [address] [place] [address] Dr. Bebeto Alvarado EGFR-AF GERMAN >60 Normal >=60 [facility] Comment on above: Performed By: #### C MP, LIPID #### [facility] [address] [place] [address] Dr. Bebeto Alvarado EGFR-NON AF GERMAN 59 mL/min/1.73m2 Critically low >=60 [facility] Comment on above: Performed By: #### C MP, LIPID #### [facility] [address] [place] [address] Dr. Bebeto Alvarado Globulin (S) [Mass/Vol] 3.4 g/dL Normal [facility] Comment on above: Performed By: #### C MP, LIPID #### [facility] [address] [place] [address] Dr. Bebeto Alvarado Glucose [Mass/Vol] 103 mg/dL Normal 74-106 [facility] Comment on above: Performed By: #### C MP, LIPID #### [facility] [address] [place] [address] Dr. Bebeto Alvarado Potassium [Moles/Vol] 3.8 mmol/L Normal 3.5-5.1 [facility] Comment on above: Performed By: #### C MP, LIPID #### [facility] [address] [place] [address] Dr. Bebeto Alvarado Protein [Mass/Vol] 7.2 g/dL Normal 6.4-8.2 [facility] Comment on above: Performed By: #### C MP, LIPID #### [facility] [address] [place] [address] Dr. Bebeto Alvarado Sodium [Moles/Vol] 141 mmol/L Normal 136-145 [facility] Comment on above: Performed By: #### C MP, LIPID #### [facility] [address] [place] [address] Dr. Bebeto Alvarado Urea nitrogen [Mass/Vol] 11.0 mg/dL Normal 7.0-18.0 [facility] Comment on above: Performed By: #### C MP, LIPID #### [facility] [address] [place] [address] Dr. Bebeto Alvarado Urea nitrogen/Creatinine [Mass ratio] 11.3 mg/mg Normal [facility] Comment on above: Performed By: #### C MP, LIPID #### [facility] [address] [place] [address] Dr. Bebeto Alvarado URIC ACID SERUMon 11-21-2021 Urate [Mass/Vol] 7.3 mg/dL Critically high 2.6-6.0 [facility] Comment on above: Performed By: #### A 1C #### [facility] [address] [place] [address] Dr. Bebeto Alvarado VITAMIN B12on 11-21-2021 Cobalamin (Vitamin B12) [Mass/Vol] 2123.0 pg/mL Critically high 193.0-986.0 [facility] Comment on above: Performed By: #### A 1C #### [facility] [address] [place] [address] Dr. Bebeto Alvarado Physician Referralon 022 Physician Referral [phone] [id number] Normal [facility] KNEE RIGHT 1 OR 2 VWSon KNEE RIGHT 1 OR 2 VWS [facility] Department of Radiology [address] [place] [phone] ======== Patient Name: MICHELLE BE : 1960 Sex: F Age: Race: White Pt. Location: 84 Patient Status: O Ordered Date: 02/08/2019 10:40:00 AM Completed Date: 02/08/2019 10:38 AM Requesting Provider: AHSAN BINGHAM Attending Provider: AHSAN BINGHAM Report Copy To: Signs & Symptoms: S82.001A Unsp fracture of right patella, init for clos fx I10 History: [place] Comments: , , , Ordering Provider - [...] Electronically signed by:Debra Del Cid. Transcribed by: [email or web address], User Resident: Electronically Signed by: DEBRA DEL [...] PA-C , KNEE RIGHT 1 OR 2 [facility] KNEE RIGHT 1 OR 2 S [facility] Department of Radiology [address] [place] [phone] ======== Patient Name: MICHELLE BE : [...] , Exam: KNEE RIGHT 1 OR 2 [facility] ======== KNEE RIGHT 1 OR 2 S [...] complications. Electronically signed by:Tomasz Stoll. Transcribed by: [email or web address], User Resident: Electronically Signed by: TOMASZ STOLL [...] PA-C , KNEE RIGHT 1 OR 2 [facility] 0 KNEE RIGHT 1 OR 2 [facility] [place] Department of Radiology [address] [place] [phone] ======== Patient Name: MICHELLE BE : [...] osteoarthritis Electronically signed by:Anup Ellison. Transcribed by: [email or web address], User Resident: Electronically Signed by: ANUP ELLISON [...] PA-C , KNEE RIGHT 1 OR 2 [facility] 08-05 KNEE RIGHT 1 OR 2 S [facility] Department of Radiology [address] [place] [phone] ======== Patient Name: MICHELLE BE : [...] effusion Electronically signed by:Anup Ellison. Transcribed by: [email or web address], User Resident: Electronically Signed by: ANUP ELLISON [...] PA-C , KNEE RIGHT 1 OR 2 [facility] 07-06 KNEE RIGHT 1 OR 2 [facility] [place] Department of Radiology [address] [place] [phone] ======== Patient Name: MICHELLE BE : [...] compartment Electronically signed by:Anup Ellison. Transcribed by: [email or web address], User Resident: Electronically Signed by: ANUP ELLISON [...] [facility] Department of Radiology [address] [place] [phone] ======== Patient Name: MICHELLE BE : [...] knee Electronically signed by:Anup Ellison. Transcribed by: [email or web address], User Resident: Electronically Signed by: ANUP ELLISON [...] Suki Escalante M.D. 07/04/2018 12:25 P Suki Escaalnte M.D. I was present for the domínguez and critical portions and I was otherwise immediately available to assist. Date Dict: 07/02/2018/04:59 P/Paolo Duarte MD Date Trans: 07/03/2018 04:28 A/terry [id number] Normal [facility] *ANAEROBIC CULTUREon 019 *ANAEROBIC CULTURE Clinical Report: (D) Specimen/Source: SWAB/RT KNEE Collected: 07/02/2018 13:53 Status: Final Last Updated: 07/07/2018 08:02 CULT RES (Final) No Anaerobes Isolated 5 Days Normal [facility] Comment on above: Performed By: #### 3 0312 #### [address] *WOUND CULTUREon 07-02-2018 *WOUND CULTURE Clinical Report: (D) Specimen/Source: WOUND/INTRAOP SPEC Collected: 07/02/2018 13:53 Status: Final Last Updated: 07/07/2018 10:13 (1) #1 RT KNEE GRAM (Final) Rare Polys No Bacteria Seen CULT RES (Final) No Growth Day 5 Normal [facility] Comment on above: Order Comment: #1 RT KNEE Performed By: #### 3 0343 #### [address] KNEE RIGHT 1 OR 2 [facility] 06-05 KNEE RIGHT 1 OR 2 S [facility] Department of Radiology [address] [place] [phone] ======== Patient Name: MICHELLE BE : [...] Electronically signed by:Debra Del Cid. Transcribed by: [email or web address], User Resident: Electronically Signed by: DEBRA DEL CID @ 07/02/2018 02:03 PM Normal [facility] Comment on above: Order Comment: ORIF VS PERCUTANEOUS FIXATION RIGHT PATELLA POC GLUCOSE LABon 07-02-2018 Glucose [Mass/Vol] 108 mg/dL High 70-100 [facility] Comment on above: Performed By: #### 8 5499 #### [facility] [address] [place] [address], [facility] APTTon 06-30-2018 aPTT Coag (Bld) [Time] [...] THIS PURPOSE. Performed By: #### 5 6101, [id number] #### [facility] [address] [place] [address], [facility] BASIC METABOLIC PANELon - Calcium [Mass/Vol] 9.7 mg/dL Normal 8.6-10.3 [facility] Comment on above: Performed By: #### 0 0071 #### [facility] [address] [place] [address], [facility] Chloride [Moles/Vol] 102 mmol/L Normal 98-107 [facility] Comment on above: Performed By: #### 0 0071 #### [facility] [address] [place] [address], [place] CO2 [Moles/Vol] 28 mmol/L Normal 21-31 [facility] Comment on above: Performed By: #### 0 0071 #### [facility] [address] [place] [address], [facility] Creatinine [Mass/Vol] 1.20 mg/dL Normal 0.60-1.20 [facility] Comment on above: Performed By: #### 0 0071 #### [facility] [address] [place] [address], [place] GFR/1.73 sq M predicted among blacks MDRD (S/P/Bld) [Vol rate/Area] 56 ml/min/1.73sq m Abnormal >60 [facility] Comment on above: Performed By: #### 0 0071 #### [facility] [address] [place] [address], [facility] GFR/1.73 sq M predicted among non-blacks MDRD (S/P/Bld) [Vol rate/Area] 47 ml/min/1.73sq m Abnormal >60 [facility] Comment on above: Performed By: #### 0 0071 #### [facility] [address] [facility] [place] [address], [facility] Glucose [Mass/Vol] 97 mg/dL Normal 70-100 [facility] Comment on above: Performed By: #### 0 0071 #### [facility] [address] [facility] [place] [address], [facility] Potassium [Moles/Vol] 4.1 mmol/L Normal 3.5-5.1 [facility] Comment on above: Performed By: #### 0 0071 #### [facility] [address] [facility] [place] [address], [facility] Sodium [Moles/Vol] 137 mmol/L Normal 136-145 [facility] Comment on above: Performed By: #### 0 0071 #### [facility] [address] [place] [address], [facility] Urea nitrogen [Mass/Vol] 19 mg/dL Normal 7-25 [facility] Comment on above: Performed By: #### 0 0071 #### [facility] [address] [facility] [place] [address], [facility] CBC W/DIFFon 06-30-2018 ABS BASOPHILS 0.1 10*3/uL Normal 0.0-0.2 [facility] Comment on above: Performed By: #### 5 102 #### [facility] [address] [place] [address], [facility] ABS IMM GRANS 0.0 10*3/uL Normal 0.0-0.2 [facility] Comment on above: Performed By: #### 5 102 #### [facility] [address] [place] [address], [facility] ABS NEUTROPHILS 6.4 10*3/uL Normal 1.6-7.6 [facility] Comment on above: Performed By: #### 5 0103 #### [facility] [address] [place] [address], [facility] Basophils/100 WBC (Bld) 0.7 % Normal 0.0-1.0 [facility] Comment on above: Performed By: #### 5 0103 #### [facility] [address] [place] [address], [facility] Eosinophils (Bld) [#/Vol] 0.2 10*3/uL Normal 0.0-0.5 [facility] Comment on above: Performed By: #### 5 0103 #### [facility] [address] [place] [address], [facility] Eosinophils/100 WBC (Bld) 1.5 % Normal 0.0-6.0 [facility] Comment on above: Performed By: #### 5 0103 #### [facility] [address] [facility] [place] [address], [facility] Erythrocyte distribution width (RBC) [Ratio] 14.4 % Normal 11.5-15.0 [facility] Comment on above: Performed By: #### 5 0103 #### [facility] [address] [facility] [place] [place] [address], [facility] Hematocrit (Bld) [Volume fraction] 40.6 % Normal 36.0-45.0 [facility] Comment on above: Performed By: #### 5 0103 #### [facility] [address] [facility] [place] [address], [facility] Hemoglobin (Bld) [Mass/Vol] 13.3 g/dL Normal 12.0-15.0 [facility] Comment on above: Performed By: #### 5 0103 #### [facility] [address] [place] [address], [facility] IMMATURE GRANS 0.4 % Normal 0.0-1.0 [facility] Comment on above: Performed By: #### 5 0103 #### [facility] [address] [facility] [place] [address], [facility] Lymphocytes (Bld) [#/Vol] 2.6 10*3/uL Normal 1.2-4.0 [facility] Comment on above: Performed By: #### 5 0103 #### [facility] [address] [facility] [address], [facility] Lymphocytes/100 WBC (Bld) 26.5 % Normal 20.0-45.0 [facility] Comment on above: Performed By: #### 5 3 #### [facility] [address] [facility]. [address] MCH (RBC) [Entitic mass] 27.4 pg Normal 27.0-33.0 [facility] Comment on above: Performed By: #### 5 3 #### [facility] [address] [facility] MCHC (RBC) [Mass/Vol] 32.8 g/dL Normal 32.0-35.0 [facility] Comment on above: Performed By: #### 5 0103 #### [facility] [address] [facility] [place] [address], [facility] MCV (RBC) [Entitic vol] 83.5 fL Normal 82.0-98.0 [facility] Comment on above: Performed By: #### 5 3 #### [facility] [address] [facility] [place] [address], [facility] Monocytes (Bld) [#/Vol] 0.5 10*3/uL Normal 0.1-1.0 [facility] Comment on above: Performed By: #### 5 3 #### [facility] [address] [place] [address], [facility] MONOS 5.0 % Normal 5.0-12.0 [facility] Comment on above: Performed By: #### 5 0103 #### [facility] [address] [facility] [place] [address], [facility] Neutrophils/100 WBC (Bld) 65.9 % Normal 40.0-72.0 [facility] Comment on above: Performed By: #### 5 3 #### [facility] [address] [facility] [place] [address], [facility] Nucleated RBC/100 WBC (Bld) [Ratio] 0 % Normal 0-0 [facility] Comment on above: Performed By: #### 5 0103 #### [facility] [address] [place] [address], [facility] PLAT CNT 290 10*3/uL Normal 150-400 [facility] Comment on above: Performed By: #### 5 3 #### [facility] [address] [place] [address], [facility] RBC (Bld) [#/Vol] 4.86 10*6/uL Normal 3.80-5.00 [facility] Comment on above: Performed By: #### 5 0103 #### [facility] [address] [place] [address], [facility] WBC (Bld) [#/Vol] 9.68 10*3/uL Normal 4.00-10.60 [facility] Comment on above: Performed By: #### 5 3 #### [place] [address], [facility] KNEE RIGHT 1 OR 2 VWSon 06-05 KNEE RIGHT 1 OR 2 S [facility] Department of Radiology [address] [place] [phone] ======== Patient Name: MICHELLE BE : 1960 Sex: F Age: Race: White Pt. 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 Transcribed by: [email or web address], User Resident: Electronically Signed by: DEBRA DEL CID @ 06/30/2018 11:52 AM Normal [facility] [...] CHEST 1995;108:231S-246S. Performed By: #### 5 6101, [id number] #### [place] [address] PT Coag (PPP) [Time] 13.0 s Normal 12.3-14.8 [facility] Comment on above: Result Comment: ALL RESULTS MUST BE INTERPRETED WITH RESPECT TO BLOOD DRAWING ARTIFACT OR DILUTION ERROR OF ANTICOAGULANT AT THE TIME OF SAMPLING. Performed By: #### 5 6101, [id number] #### [address] KNEE RIGHT 3 Son 9 KNEE RIGHT 3 [facility] Department of Radiology [address] [place] [phone] ======== Patient Name: MICHELLE BE : 1960 Sex: F Age: Race: White Pt. Location: Patient Status: O Ordered Date: 06/15/2018 1:35:00 PM Completed Date: 06/15/2018 01:34 PM Requesting Provider: AMPARO ZHANG Attending Provider: AMPARO ZHANG Report Copy To: ADELAIDA CARRION Signs & Symptoms: M17.11 Unilateral primary osteoarthritis, right knee I10 History: [place] Comments: , Weight Bearing?: Y , Weight Bearing?: Y , , , Ordering Provider - AMPARO ZHANG PA-C , Exam: KNEE RIGHT 3 [facility] ======== KNEE RIGHT 3 S 06/15/2018 1:34 [...] effusion Electronically signed by:Anup Ellison. Transcribed by: [email or web address], User Resident: Electronically Signed by: ANUP ELLISON @ 06/15/2018 03:50 PM Normal [facility] Comment on above: Order Comment: , Isaiah ght Bearing?: Y , Weight Bearing?: Y , , , Ordering Mariela ZHANG PA-C , Vital Signs Date Time Vital Sign Value Performing Clinician Facility 12-26-2024 09:40-0400 Body height 162.6 cm [facility] [employer] Work Phone: [facility] 12-26-2024 09:40-0400 Body mass index (BMI) [Ratio] 47.55 kg/m2 [facility] [employer] Work Phone: [facility] 12-26-2024 09:40-0400 Body weight 125.65 kg [facility] [employer] Work Phone: [facility] 11-18-2024 09:52-0400 Body height 162.6 cm Harrison Hoyos DO Work Phone: [facility] 11-18-2024 09:52-0400 Body mass index (BMI) [Ratio] 47.55 kg/m2 Harrison Hoyos DO Work Phone: [facility] 11-18-2024 09:52-0400 Body weight 125.65 kg Harrison Pocos DO Work Phone: [facility] 11-14-2024 10:16-0400 Body mass index (BMI) [Ratio] 47.62 kg/m2 Adelaida Sousaholz [employer] Work Phone: [facility] 11-14-2024 10:16-0400 Body temperature 97.81 [degF] Adelaida Sousaholz [employer] Work Phone: [facility] 11-14-2024 10:16-0400 Body weight 125.83 kg Adelaida Sousaholz [employer] Work Phone: [facility] 11-14-2024 10:16-0400 Diastolic blood pressure 84 mm[Hg] Adelaida Sousaholz [employer] Work Phone: [facility] 11-14-2024 10:16-0400 Heart rate 70 /min Adelaida Iglesiasz [employer] Work Phone: [facility] 11-14-2024 10:16-0400 Respiratory rate 20 /min Adelaidamyrna Sousaholz [employer] Work Phone: [facility] 11-14-2024 10:16-0400 SaO2% (BldA) [Mass fraction] 98 % Adelaida Sousaholz [employer] Work Phone: [facility] 11-14-2024 10:16-0400 Systolic blood pressure 124 mm[Hg] Adelaida Sousaholz [employer] Work Phone: [facility] 10-27-2024 10:05-0400 Body height 162.6 cm Harrison Pocos DO Work Phone: [facility] 10-27-2024 10:05-0400 Body mass index (BMI) [Ratio] 47.55 kg/m2 Harrison Pocos DO Work Phone: [facility] 10-27-2024 10:05-0400 Body weight 125.65 kg Harrison Pocos DO Work Phone: [facility] 10-13-2024 08:42-0400 Body mass index (BMI) [Ratio] 48.75 kg/m2 Adelaida Yinghholz [employer] Work Phone: [facility] 10-13-2024 08:42-0400 Body temperature 98.49 [degF] Adelaida Aichholz [employer] Work Phone: [facility] 10-13-2024 08:42-0400 Body weight 128.82 kg Adelaida Aichholz [employer] Work Phone: [facility] 10-13-2024 08:42-0400 Diastolic blood pressure 80 mm[Hg] Adelaida Aichholz [employer] Work Phone: [facility] 10-13-2024 08:42-0400 Heart rate 85 /min Adelaida Aichholz [employer] Work Phone: [facility] 10-13-2024 08:42-0400 Respiratory rate 20 /min Adelaida Aichholz [employer] Work Phone: [facility] 10-13-2024 08:42-0400 SaO2% (BldA) [Mass fraction] 95 % Adelaida Yinghholz [employer] Work Phone: [facility] 10-13-2024 08:42-0400 Systolic blood pressure 132 mm[Hg] Adelaida Yinghholz [employer] Work Phone: [facility] 08-16-2024 11:25-0400 Body mass index (BMI) [Ratio] 48.23 kg/m2 Adelaida Aichholz [employer] Work Phone: [facility] 08-16-2024 11:25-0400 Body temperature 98.49 [degF] Adelaida Aichholz [employer] Work Phone: [facility] 08-16-2024 11:25-0400 Body weight 127.46 kg Adelaida Aichholz [employer] Work Phone: [facility] 08-16-2024 11:25-0400 Diastolic blood pressure 82 mm[Hg] Adelaida Aichholz [employer] Work Phone: [facility] 08-16-2024 11:25-0400 Heart rate 67 /min Adelaida Aichholz [employer] Work Phone: [facility] 08-16-2024 11:25-0400 Respiratory rate 18 /min Adelaida Aichholz [employer] Work Phone: [facility] 08-16-2024 11:25-0400 SaO2% (BldA) [Mass fraction] 97 % Adelaida Aichholz [employer] Work Phone: [facility] 08-16-2024 11:25-0400 Systolic blood pressure 120 mm[Hg] Adelaida Aichholz [employer] Work Phone: [facility] 07-27-2024 11:16-0400 Body mass index (BMI) [Ratio] 50.67 kg/m2 Adelaida Aichholz [employer] Work Phone: [facility] 07-27-2024 11:16-0400 Body temperature 98.8 [degF] Adelaida Aichholz [employer] Work Phone: [facility] 07-27-2024 11:16-0400 Body weight 133.9 kg Adelaida Aichholz [employer] Work Phone: [facility] 07-27-2024 11:16-0400 Diastolic blood pressure 86 mm[Hg] Adelaida Aichholz [employer] Work Phone: [facility] 07-27-2024 11:16-0400 Heart rate 82 /min Adelaida Aichholz [employer] Work Phone: [facility] 07-27-2024 11:16-0400 Respiratory rate 24 /min Adelaida Aichholz [employer] Work Phone: [facility] 07-27-2024 11:16-0400 SaO2% (BldA) [Mass fraction] 97 % Adelaida Aichholz [employer] Work Phone: [facility] 07-27-2024 11:16-0400 Systolic blood pressure 124 mm[Hg] Adelaida Aichholz [employer] Work Phone: [facility] 07-26-2024 10:48-0400 Body height 162.6 cm Juany Lowe PA Work Phone: [facility] 07-26-2024 10:48-0400 Body mass index (BMI) [Ratio] 50.98 kg/m2 Juany Lowe PA Work Phone: [facility] 07-26-2024 10:48-0400 Body weight 134.72 kg Juany Lowe PA Work Phone: [facility] 07-26-2024 10:48-0400 Diastolic blood pressure 84 mm[Hg] Juany Lowe PA Work Phone: [facility] 07-26-2024 10:48-0400 Systolic blood pressure 126 mm[Hg] Juany Lowe PA Work Phone: [facility] 05-24-2024 08:19-0500 Body height 162.6 cm Juany Lowe PA Work Phone: [facility] 05-24-2024 08:19-0500 Body mass index (BMI) [Ratio] 50.29 kg/m2 Juany Lowe PA Work Phone: [facility] 05-24-2024 08:19-0500 Body weight 132.9 kg Juany Lowe PA Work Phone: [facility] 05-24-2024 08:19-0500 Diastolic blood pressure 72 mm[Hg] Juany Lowe PA Work Phone: [facility] 05-24-2024 08:19-0500 Heart rate 62 /min Juany Lowe PA Work Phone: [facility] 05-24-2024 08:19-0500 Respiratory rate 16 /min Juany Lowe PA Work Phone: [facility] 05-24-2024 08:19-0500 SaO2% (BldA) [Mass fraction] 100 % Juany Lowe PA Work Phone: [facility] 05-24-2024 08:19-0500 Systolic blood pressure 110 mm[Hg] Juany Kirbygeorgette REDDY Work Phone: [facility] 05-12-2024 10:04-0500 Body height 162.6 cm Adelaidamyrna Hejosue [employer] Work Phone: [facility] 05-12-2024 10:04-0500 Body mass index (BMI) [Ratio] 49.16 kg/m2 Adelaida Aichholz [employer] Work Phone: [facility] 05-12-2024 10:04-0500 Body temperature 98.49 [degF] Adelaida Yinghholz [employer] Work Phone: [facility] 05-12-2024 10:04-0500 Body weight 129.91 kg Adelaida Merryholz [employer] Work Phone: [facility] 05-12-2024 10:04-0500 Diastolic blood pressure 78 mm[Hg] Adelaida Yinghholz [employer] Work Phone: [facility] 05-12-2024 10:04-0500 Heart rate 80 /min Adelaida Merryholz [employer] Work Phone: [facility] [facility] 05-12-2024 10:04-0500 Respiratory rate 20 /min Adelaida Merryholz [employer] Work Phone: [facility] 05-12-2024 10:04-0500 SaO2% (BldA) [Mass fraction] 98 % Adelaida Yinghholz [employer] Work Phone: [facility] 05-12-2024 10:04-0500 Systolic blood pressure 118 mm[Hg] Adelaida Yinghholz [employer] Work Phone: [facility] 03-16-2024 09:53-0500 Body height 162.6 cm Adelaida Yingmarquesholz [employer] Work Phone: [facility] 03-16-2024 09:53-0500 Body mass index (BMI) [Ratio] 48.41 kg/m2 Adelaida Aichholz [employer] Work Phone: [facility] 03-16-2024 09:53-0500 Body temperature 98.01 [degF] Adelaida Carrion [employer] Work Phone: [facility] 03-16-2024 09:53-0500 Body weight 127.91 kg Adelaida Carrion [employer] Work Phone: [facility] 03-16-2024 09:53-0500 Diastolic blood pressure 80 mm[Hg] Adelaida Carrion [employer] Work Phone: [facility] 03-16-2024 09:53-0500 Heart rate 79 /min Adelaida Carrion [employer] Work Phone: [facility] 03-16-2024 09:53-0500 Respiratory rate 18 /min Adelaida Carrion [employer] Work Phone: [facility] 03-16-2024 09:53-0500 SaO2% (BldA) [Mass fraction] 98 % Adelaida Carrion [employer] Work Phone: [facility] 03-16-2024 09:53-0500 Systolic blood pressure 120 mm[Hg] Adelaida Carrion [employer] Work Phone: [facility] 03-10-2024 15:20-0500 Body height 162.6 cm Rachel Sahni PA Work Phone: [facility] 03-10-2024 15:20-0500 Body mass index (BMI) [Ratio] 48.41 kg/m2 Rachel Sahni PA Work Phone: [facility] 03-10-2024 15:20-0500 Body weight 127.91 kg Rachel Sahni PA Work Phone: [facility] 03-10-2024 15:20-0500 Diastolic blood pressure 68 mm[Hg] Rachel Sahni PA Work Phone: [facility] 03-10-2024 15:20-0500 Heart rate 74 /min Rachel Sahni PA Work Phone: [facility] 03-10-2024 15:20-0500 Respiratory rate 16 /min Rachel Sahni PA Work Phone: [facility] 03-10-2024 15:20-0500 SaO2% (BldA) [Mass fraction] 98 % Rachel Sahni PA Work Phone: [facility] 03-10-2024 15:20-0500 Systolic blood pressure 102 mm[Hg] Rachel Sahni PA Work Phone: [facility] 03-01-2024 12:48-0500 Body height 162.6 cm Juany Lowe PA Work Phone: [facility] 03-01-2024 12:48-0500 Body mass index (BMI) [Ratio] 48.92 kg/m2 Juany Lowe PA Work Phone: [facility] 03-01-2024 12:48-0500 Body weight 129.28 kg Juany Lowe PA Work Phone: [facility] 03-01-2024 12:48-0500 Diastolic blood pressure 88 mm[Hg] Juany Lowe PA Work Phone: [facility] 03-01-2024 12:48-0500 Systolic blood pressure 140 mm[Hg] Juany Lowe PA Work Phone: [facility] 02-16-2024 11:18-0500 Body height 162.6 cm Adelaida Carrion [employer] Work Phone: [facility] 02-16-2024 11:18-0500 Body mass index (BMI) [Ratio] 50.77 kg/m2 Adelaida Sheyla [employer] Work Phone: [facility] 02-16-2024 11:18-0500 Body temperature 98.49 [degF] Adelaiad Carrion [employer] Work Phone: [facility] 02-16-2024 11:18-0500 Body weight 134.17 kg Adelaida Sheyla [employer] Work Phone: [facility] 02-16-2024 11:18-0500 Diastolic blood pressure 82 mm[Hg] Adelaida Sheyla [employer] Work Phone: [facility] 02-16-2024 11:18-0500 Heart rate 69 /min Adelaida Yinghholz [employer] Work Phone: [facility] 02-16-2024 11:18-0500 Respiratory rate 20 /min Adelaida Yinghholz [employer] Work Phone: [facility] 02-16-2024 11:18-0500 SaO2% (BldA) [Mass fraction] 98 % Adelaida Yinghholz [employer] Work Phone: [facility] 02-16-2024 11:18-0500 Systolic blood pressure 122 mm[Hg] Adelaida Aichholz [employer] Work Phone: [facility] 01-28-2024 13:46-0400 Body height 162.6 cm Adelaida Aichholz [employer] Work Phone: [facility] 01-28-2024 13:46-0400 Body mass index (BMI) [Ratio] 48.99 kg/m2 Adelaida Yinghholz [employer] Work Phone: [facility] 01-28-2024 13:46-0400 Body temperature 98.71 [degF] Adelaida Yinghholz [employer] Work Phone: [facility] 01-28-2024 13:46-0400 Body weight 129.46 kg Adelaida Yinghholz [employer] Work Phone: [facility] 01-28-2024 13:46-0400 Diastolic blood pressure 78 mm[Hg] Adelaida Aichholz [employer] Work Phone: [facility] 01-28-2024 13:46-0400 Heart rate 81 /min Adelaida Aichholz [employer] Work Phone: [facility] 01-28-2024 13:46-0400 Respiratory rate 18 /min Adelaida Aichholz [employer] Work Phone: [facility] 01-28-2024 13:46-0400 SaO2% (BldA) [Mass fraction] 99 % Adelaida Aichholz [employer] Work Phone: [facility] 01-28-2024 13:46-0400 Systolic blood pressure 110 mm[Hg] Adelaida Carrion [employer] Work Phone: [facility] 01-04-2024 09:39-0400 Body height 162.6 cm Adelaida Iglesiasz [employer] Work Phone: [facility] 01-04-2024 09:39-0400 Body mass index (BMI) [Ratio] 48.75 kg/m2 Adelaidamyrna Iglesiasz [employer] Work Phone: [facility] 01-04-2024 09:39-0400 Body temperature 97.81 [degF] Adelaida Sousakushlily [employer] Work Phone: [facility] 01-04-2024 09:39-0400 Body weight 128.82 kg Adelaida Iglesiasz [employer] Work Phone: [facility] 01-04-2024 09:39-0400 Diastolic blood pressure 78 mm[Hg] Adealida Iglesiasz [employer] Work Phone: [facility] 01-04-2024 09:39-0400 Heart rate 67 /min Adelaida Iglesiasz [employer] Work Phone: [facility] 01-04-2024 09:39-0400 Respiratory rate 19 /min Adelaida Iglesiasz [employer] Work Phone: [facility] 01-04-2024 09:39-0400 SaO2% (BldA) [Mass fraction] 99 % Adelaida Iglesiasz [employer] Work Phone: [facility] 01-04-2024 09:39-0400 Systolic blood pressure 116 mm[Hg] Adelaida Sousakushz [employer] Work Phone: [facility] 12-09-2023 10:14-0400 Body height 162.6 cm Juany Caballero [employer] Work Phone: [facility] 12-09-2023 10:14-0400 Body mass index (BMI) [Ratio] 48.92 kg/m2 Juany Gillmor [employer] Work Phone: [facility] 12-09-2023 10:14-0400 Body weight 129.28 kg Juany Escalanter [employer] Work Phone: [facility] 12-09-2023 10:14-0400 Diastolic blood pressure 78 mm[Hg] Juany Escalanter [employer] Work Phone: [facility] 12-09-2023 10:14-0400 SaO2% (BldA) [Mass fraction] 97 % Juany Escalanter [employer] Work Phone: [facility] 12-09-2023 10:14-0400 Systolic blood pressure 122 mm[Hg] Juany Escalanter [employer] Work Phone: [facility] 12-08-2023 15:24-0400 Body height 162.6 cm Angle Franzgel [employer] Work Phone: [facility] 12-08-2023 15:24-0400 Body mass index (BMI) [Ratio] 48.92 kg/m2 Angle Clevelandnagel [employer] Work Phone: [facility] 12-08-2023 15:24-0400 Body weight 129.28 kg Angle Clevelandnagel [employer] Work Phone: [facility] 12-08-2023 15:24-0400 Diastolic blood pressure 77 mm[Hg] Angle Windnagel [employer] Work Phone: [facility] 12-08-2023 15:24-0400 Heart rate 72 /min Angle Windnagel [employer] Work Phone: [facility] 12-08-2023 15:24-0400 Systolic blood pressure 134 mm[Hg] Angle Windnagel [employer] Work Phone: [facility] 05-18-2023 16:30-0500 Body height 162.6 cm Adelaida Sheyla [employer] Work Phone: [facility] 05-18-2023 16:30-0500 Body mass index (BMI) [Ratio] 47.89 kg/m2 Adelaida Aichholz [employer] Work Phone: [facility] 05-18-2023 16:30-0500 Body temperature 97.3 [degF] Adelaida Aichholz [employer] Work Phone: [facility] 05-18-2023 16:30-0500 Body weight 126.55 kg Adelaida Aichholz [employer] Work Phone: [facility] 05-18-2023 16:30-0500 Diastolic blood pressure 80 mm[Hg] Adelaida Aichholz [employer] Work Phone: [facility] 05-18-2023 16:30-0500 Heart rate 76 /min Adelaida Aichholz [employer] Work Phone: [facility] 05-18-2023 16:30-0500 Respiratory rate 19 /min Adelaida Aichholz [employer] Work Phone: [facility] 05-18-2023 16:30-0500 SaO2% (BldA) [Mass fraction] 97 % Adelaida Aichholz [employer] Work Phone: [facility] 05-18-2023 16:30-0500 Systolic blood pressure 134 mm[Hg] Adelaida Aichholz [employer] Work Phone: [facility] 03-23-2023 12:10-0500 Diastolic blood pressure 98 mm[Hg] Adelaida Aichholz Work Phone: [facility] 03-23-2023 12:10-0500 Heart rate 76 /min Adelaida Aichholz Work Phone: [facility] 03-23-2023 12:10-0500 Respiratory rate 18 /min Adelaida Aichholz Work Phone: [facility] 03-23-2023 12:10-0500 SaO2% (BldA) [Mass fraction] 99 % Adelaida Aichholz Work Phone: [facility] 03-23-2023 12:10-0500 Systolic blood pressure 162 mm[Hg] Adelaida Aichholz Work Phone: [facility] 03-23-2023 10:53-0500 Body height 162.56 cm Adelaida Sousaholz Work Phone: [facility] 03-23-2023 10:53-0500 Body weight 125.64 kg Adelaidamyrna Sousaholz Work Phone: [facility] 12-19-2022 14:55-0400 Body height 162.56 cm Rosemary Kirkland Other [facility] [employer] Other 12-19-2022 14:55-0400 Body mass index (BMI) [Ratio] 47.85 kg/m2 Rosemary Vernonmond Other [employer] Other 12-19-2022 14:55-0400 Body temperature 97.8 [degF] Rosemary Kirkland Other [employer] Other 12-19-2022 14:55-0400 Body weight 126.46 kg Rosemary Kirkland Other [employer] Other 12-19-2022 14:55-0400 Respiratory rate 20 /min Rosemary Kirkland Other [employer] Other 12-19-2022 14:55-0400 SaO2% (BldA) [Mass fraction] 95 % Rosemary Kirkland Other [employer] Other 11-20-2022 13:12-0400 Body temperature 97.7 [degF] Adelaida Aichholz Work Phone: [facility] 11-20-2022 13:12-0400 SaO2% (BldA) [Mass fraction] 96 % Adelaida Yinghholz Work Phone: [facility] 11-20-2022 07:44-0400 Diastolic blood pressure 90 mm[Hg] Adelaida Aichholz Work Phone: [facility] 11-20-2022 07:44-0400 Heart rate 103 /min Adelaida Aichholz Work Phone: [facility] 11-20-2022 07:44-0400 Systolic blood pressure 152 mm[Hg] Adelaida Aichholz Work Phone: [facility] 11-19-2022 20:00-0400 Respiratory rate 18 /min Adelaida Aichholz Work Phone: [facility] 11-18-2022 15:18-0400 Body height 162.56 cm Adelaida Aichholz Work Phone: [facility] 11-17-2022 09:00-0400 Body weight 122.92 kg Adelaida Aichholz Work Phone: [facility] Encounters Encounter Date Encounter Type Care Provider Facility Start: 12-26-2024 End: 12-26-2024 Bamboo flowsheet Scott Stone PA Work Phone: [facility] Start: 12-26-2024 End: 12-26-2024 Bamboo flowsheet Scott Stone PA Work Phone: [facility] Start: 12-26-2024 End: 12-26-2024 Patient encounter procedure Scott Stone PA Work Phone: [facility] Comment on above: Status post arthrosc opic surgery of right knee (Primary Dx) Start: 12-26-2024 End: 12-26-2024 ambulatory SCOTT STONE Not Available Start: 12-16-2024 ambulatory Eduardo Monk Facility:[facility] Start: 12-14-2024 End: 12-14-2024 Orders Only Harrison Hoyos DO Work Phone: [facility] Comment on above: Primary osteoarthrit is of right knee (Primary Dx) Start: 11-23-2024 End: 11-23-2024 Clinisync Result Encounter Adelaida Carrion [employer] Work Phone: [facility] External Department Unsolicited Start: 11-23-2024 End: 11-23-2024 Clinisync Result Encounter Adelaida Sheyla [employer] Work Phone: [facility] External Department Unsolicited Start: 11-18-2024 End: 11-18-2024 Bamboo flowsheet Michel Pocos DO Work Phone: [facility] Start: 11-18-2024 End: 11-18-2024 Bamboo flowsheet Michel Pocos DO Work Phone: [facility] Start: 11-18-2024 End: 11-18-2024 Patient encounter procedure Michel Pocos DO Work Phone: [facility] Comment on above: Acute medial meniscu s tear of right knee, initial encounter (Primary Dx); Chronic pain of right knee; Morbid obesity (CMS-HCC); Primary osteoarthritis of right knee; Preoperative testing Start: 11-18-2024 End: 11-18-2024 Patient encounter status Harrison Shea Pocos DO Work Phone: [facility] Start: 11-18-2024 End: 11-18-2024 ambulatory HARRISON Shea POCOS Not Available Start: 11-17-2024 End: 11-17-2024 ambulatory HARRISON Shea POCOS Not Available Start: 11-14-2024 End: 11-14-2024 Bamboo flowsheet Adelaida Carrion [employer] Work Phone: [facility] Start: 11-14-2024 End: 11-17-2024 Bamboo flowsheet Adelaida Carrion [employer] Work Phone: [facility] Start: 11-14-2024 End: 11-17-2024 Clinisync Result Encounter Adelaida Carrion [employer] Work Phone: [facility] External Department Unsolicited Start: 11-14-2024 End: 11-14-2024 Office outpatient visit 25 minutes Adelaida Carrion NP Work Phone: [facility] Comment on above: Well woman exam with routine gynecological exam (Primary Dx); Morbid (severe) obesity due to excess calories ([facility]); Primary hypertension ; Anemia, unspecified type; Bilateral lower extremity edema; Osteoporosis, unspecified osteoporosis type, unspecified pathological fracture presence ; Chronic kidney disease, stage 3a ([facility]); Pre-diabetes Start: 11-14-2024 End: 11-14-2024 Patient encounter procedure Adelaida Carrion NP Work Phone: [facility] Start: 11-14-2024 End: 11-14-2024 ambulatory ADELAIDA CARRION Not Available Start: 10-27-2024 End: 10-27-2024 Patient encounter procedure Harrison Shea Pocos DO Work Phone: [facility] Comment on above: Right knee pain, uns pecified chronicity (Primary Dx); Primary osteoarthritis of right knee; Morbid obesity ([facility]) Start: 10-27-2024 End: 10-27-2024 ambulatory MICHEL POCOS Not Available Start: 10-27-2024 End: 10-27-2024 ambulatory MICHEL POCOS Not Available Start: 10-13-2024 End: 10-13-2024 Bamboo flowsheet Adelaida Carrion [employer] Work Phone: [facility] Start: 10-13-2024 End: 10-13-2024 Bamboo flowsheet Adelaida Carrion [employer] Work Phone: [facility] Start: 10-13-2024 End: 10-13-2024 Office outpatient visit 25 minutes Adelaida Carrion NP Work Phone: [facility] Comment on above: Disorientation (Prim zuleika Dx); Essential (primary) hypertension ; Allergic rhinitis, unspecified seasonality, unspecified trigger; Allergic rhinitis, unspecified; Gastro-esophageal reflux disease without esophagitis; Bilateral lower extremity edema; OSMANY (obstructive sleep apnea); Primary hypertension ; Osteoporosis, unspecified osteoporosis type, unspecified pathological fracture presence Start: 10-13-2024 End: 10-13-2024 ambulatory ADELAIDA CARRION Not Available Start: 10-10-2024 End: 10-10-2024 ambulatory Syeda Mancuso MD Facility:[facility] Start: 10-08-2024 End: 10-09-2024 Emergency department patient visit ADELAIDA CARRION [facility] Start: 09-29-2024 End: 09-29-2024 Clinisync [...] 09-19-2024 End: 09-19-2024 ambulatory Syeda Mancuso MD Facility:[facility] Start: 08-16-2024 End: 08-16-2024 Bamboo flowsheet Adelaida Carrion [employer] Work Phone: [facility] Start: 08-16-2024 End: 08-16-2024 Bamboo flowsheet Adelaida Carrion [employer] Work Phone: [facility] Start: 08-16-2024 End: 08-16-2024 Office outpatient visit 15 minutes Adelaida Carrion [employer] Work Phone: [facility] Comment [...] 07-27-2024 End: 07-27-2024 Bamboo flowsheet Adelaida Carrion [employer] Work Phone: [facility] Start: 07-27-2024 End: 07-27-2024 Bamboo flowsheet Adelaida Carrion [employer] Work Phone: [facility] Start: 07-27-2024 End: 07-27-2024 Office outpatient visit 15 minutes Adelaida Carrion [employer] Work Phone: [facility] Comment on above: Primary hypertension [...] Start: 06-14-2024 End: 06-14-2024 Refill Adelaida Carrion [employer] Work Phone: [facility] Comment [...] 05-23-2024 End: 05-23-2024 ambulatory Syeda Mancuso MD Facility:[facility] Start: 05-12-2024 End: 05-12-2024 Bamboo flowsheet Adelaida Carrion [employer] Work Phone: [facility] Start: 05-12-2024 End: 05-12-2024 Bamboo flowsheet Adelaida Carrion [employer] Work Phone: [facility] Start: 05-12-2024 End: 05-12-2024 Office outpatient visit 25 minutes Adelaida Carrion NP Work Phone: [facility] Comment on above: Primary hypertension (CMS/HCC) (Primary Dx); Chronic kidney disease, stage 3a (HCC) (CMS/HCC); Morbid (severe) obesity due to excess calories (CMS/HCC); Body mass index (BMI) 45.0-49.9, adult (CMS/[facility]); OSMANY (obstructive sleep apnea); Hemiparesis, right ([facility]); Gastroesophageal reflux disease, unspecified whether esophagitis present; Metabolic encephalopathy; Essential (primary) hypertension ([facility]); Allergic rhinitis, unspecified; Gastro-esophageal reflux disease without esophagitis; Bilateral lower extremity edema Start: 05-12-2024 End: 05-12-2024 ambulatory ADELAIDA CARRION Not Available Start: 05-09-2024 End: 05-09-2024 ambulatory Syeda Mancuso MD Facility:[facility] Start: 04-12-2024 End: 04-12-2024 Refill Juany [...] type; Concentration deficit; PTSD (post-traumatic stress disorder) ([facility]); Bipolar affective disorder, remission status unspecified ([facility]); Family history of dementia; 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[facility]); OSMANY (obstructive sleep apnea) Start: 04-07-2024 End: 04-07-2024 ambulatory ADELAIDA CARRION Not Available Start: 03-22-2024 End: 03-22-2024 ambulatory RACHEL SAHNI Not Available Start: 03-16-2024 End: 03-16-2024 Bamboo flowsheet Adelaida Carrion [employer] Work Phone: [facility] Start: 03-16-2024 End: 03-16-2024 Bamboo flowsheet Adelaida Carrion [employer] Work Phone: [facility] Start: 03-16-2024 End: 03-16-2024 Office outpatient visit 25 minutes Adelaida Carrion [employer] Work Phone: [facility] Comment on above: Metabolic encephalop athy [...] [facility] Start: 03-14-2024 End: 03-14-2024 BamMas Con Mov[employer]heet David Foster PhD Work Phone: [facility] Start: 03-14-2024 End: 03-14-2024 Bam[employer] David Foster PhD Work Phone: [facility] cerebral artery (CMS/HCC); PTSD (post-traumatic stress disorder) ([facility]/HCC); Bipolar affective disorder, remission status unspecified ([facility]); Family history of dementia Start: 03-10-2024 End: 03-10-2024 Office outpatient visit 25 minutes Rachel REDDY Work Phone: [facility] Comment on above: Altered mental statu s, unspecified altered mental status type (Primary Dx); Restless leg; 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CMS/HCC); OSMANY (obstructive sleep apnea) Start: 03-10-2024 End: 03-10-2024 ambulatory RACHEL SAHNI Not Available Start: 03-03-2024 End: 03-07-2024 Evaluation and management of inpatient Adelaida Sousakushlily Facility:[facility] Start: 03-02-2024 End: 03-04-2024 Clinisync Result Encounter Generic External Data Provider [facility] External Department Unsolicited Start: 03-02-2024 End: 03-04-2024 Clinisync Result Encounter Generic External Data Provider [facility] External Department Unsolicited Start: 03-02-2024 End: 03-02-2024 Refill Adelaida Carrion [employer] Work Phone: [facility] Comment on above: Yeast infection of t he skin Start: 03-01-2024 End: 03-01-2024 ambulatory JUANY ADOLPH Not Available Start: 03-01-2024 End: 03-01-2024 Office outpatient visit 25 minutes Juany REDDY Work Phone: [facility] Comment on above: Metabolic encephalop athy (Primary Dx); OSMANY (obstructive sleep apnea); Restless leg; 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 (CMS/HCC); Degeneration of intervertebral disc of lumbar region with discogenic back pain and lower extremity pain; Memory change Start: 02-28-2024 End: 02-29-2024 Refill Adelaida Carrion [employer] Work Phone: [facility] Comment on above: Allergic rhinitis, u nspecified Start: 02-24-2024 End: 02-24-2024 Refill Adelaida Carrion [employer] Work Phone: [facility] Comment on above: Essential (primary) hypertension (CMS/HCC); Allergic rhinitis, unspecified Start: 02-16-2024 End: 02-16-2024 Bamboo flowsheet Adelaida Carrion [employer] Work Phone: [facility] Start: 02-16-2024 End: 02-23-2024 Clinisync Result Encounter Adelaida Carrion [employer] Work Phone: [facility] External Department Unsolicited Start: 02-16-2024 End: 02-23-2024 Clinisync Result Encounter Adelaida Carrion [employer] Work Phone: [facility] External Department Unsolicited Start: 02-16-2024 End: 02-16-2024 Patient encounter procedure Adelaida Shyela [employer] Work Phone: [facility] Start: 02-16-2024 End: 02-16-2024 Periodic preventive med est patient 40-64yrs Adelaida Sheyla [employer] Work Phone: [facility] Comment on above: Well woman exam with routine gynecological exam (Primary Dx); Morbid obesity (CMS/HCC) Start: 02-16-2024 End: 02-16-2024 ambulatory ADELAIDA SHEYLA Not Available Start: 02-04-2024 End: 02-04-2024 Refill Angle Brown [employer] Work Phone: [facility] Comment on above: Restless leg Start: 01-28-2024 End: 01-28-2024 Bamboo flowsheet Adelaida Sheyla [employer] Work Phone: [facility] Start: 01-28-2024 End: 01-28-2024 Bamboo flowsheet Adelaida Yingmarquesbob [employer] Work Phone: [facility] Start: 01-28-2024 End: 01-28-2024 Office outpatient visit 15 minutes Adelaida Carrion [employer] Work Phone: [facility] Comment [...] End: 01-05-2024 Clinisync Result Encounter Adelaida Carrion [employer] Work Phone: [facility] External Department Unsolicited Start: 01-05-2024 End: 01-05-2024 Clinisync Result Encounter Adelaida Sousabob [employer] Work Phone: [facility] External Department Unsolicited Start: 01-04-2024 End: 01-04-2024 Bamboo flowsheet Adelaida Sousabob [employer] Work Phone: [facility] Start: 01-04-2024 End: 01-04-2024 Bamboo flowsheet Adelaida Iglesiaslily [employer] Work Phone: [facility] Start: 01-04-2024 End: 01-04-2024 Office outpatient visit 25 minutes Adelaida Sousabob [employer] Work Phone: [facility] Comment on above: Bilateral lower extr emity edema (Primary Dx); Essential (primary) hypertension (CMS/HCC); Allergic rhinitis, unspecified; OSMANY (obstructive sleep apnea); Primary hypertension (CMS/HCC); Morbid obesity (CMS/HCC) Start: 01-04-2024 End: 01-04-2024 ambulatory ADELAIDA CARRION Not Available Start: 12-30-2023 End: 12-30-2023 Refill Adelaida Iglesiaslily [employer] Work Phone: [facility] Comment on above: Lower extremity elis a Start: 12-09-2023 End: 12-09-2023 Office outpatient visit 25 minutes Juany Caballero [employer] Work Phone: [facility] Comment on above: OSMANY (obstructive sle ep apnea) (Primary Dx); Restless leg Start: 12-08-2023 End: 12-08-2023 Office outpatient visit 25 minutes Angle Brown [employer] Work Phone: [facility] Comment on above: 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CMS /HCC) (Primary Dx); Restless leg; Metabolic encephalopathy Start: 12-08-2023 End: 12-08-2023 Bamboo flowsheet Angle Brown [employer] Work Phone: [facility] Start: 12-08-2023 End: 12-08-2023 Bamboo flowsheet Angle Keiry Guthriesaryalysia [employer] [facility] Phone: [facility] Start: 11-27-2023 End: 11-27-2023 Refill Adelaida Carrion [employer] Work Phone: [facility] Comment on above: Yeast infection of t he skin (Primary Dx) Start: 05-21-2023 Refill Adelaida Carrion [employer] Work Phone: [facility] Comment on above: Acute cystitis with hematuria (Primary Dx) Start: 05-18-2023 End: 05-18-2023 Office outpatient visit 25 minutes Adelaida Carrion NP Work Phone: [facility] Comment on above: Encounter for [...] encounter Start: 05-18-2023 Bamboo flowsheet Adelaida Carrion [employer] Work Phone: [facility] Start: 05-18-2023 Bamboo flowsheet Adelaida Carrion [employer] Work Phone: [facility] Start: 05-18-2023 End: 05-18-2023 Patient encounter procedure Adelaida Carrion NP Work Phone: [facility] Start: 03-23-2023 End: 03-23-2023 Admission to same day surgery center Adelaida Carrion Work Phone: [facility] Work Phone: Start: 03-23-2023 End: 03-23-2023 ambulatory Adelaida Carrion Work Phone: [facility] Work Phone: Start: 02-12-2023 End: 02-12-2023 ambulatory Jace Graham Other [employer] Other Start: 02-12-2023 Telephone encounter Jace CORADO G [employer] Start: 12-19-2022 End: 12-19-2022 ambulatory Rosemary Kirkland Other [employer] Other Start: 12-19-2022 Office outpatient ne w 10 minutes Rosemary Kirkland [facility] [place] Start: 11-17-2022 End: 11-20-2022 Evaluation and management of inpatient Adelaida Carrion Work Phone: [facility] Work Phone: Start: 09-04-2022 ambulatory ARIAN JOHNSON . Facili ty:H1 Start: 08-26-2022 ambulatory NARENDRANATH LAKSHMIPATHY . Facility:H1 Start: 08-08-2022 End: 08-09-2022 ambulatory ELECTION CLERK ADELAIDA FRANCIEZ Facility:H1 Start: 07-25-2022 End: 07-26-2022 ambulatory ELECTION CLERK ADELAIDA FRANCIEZ Facility:H1 Start: 07-15-2022 End: 07-15-2022 ambulatory NARENDRANATH LAKSHMIPATHY . Facility:H1 Start: 07-11-2022 ambulatory NARENDRANATH LAKSHMIPATHY . Facility:[facility]1 Start: 06-26-2022 End: 06-27-[address] FINA NIXON . Facility:[facility]1 Start: 06-11-2022 ambulatory ELECTION CLERK ADELAIDA FRANCIEZ Facil ity:H1 Start: 05-21-2022 End: 06-11-2022 ambulatory ELECTION CLERK ADELAIDA AICMarquesHOLZ Facility:H1 Start: 05-08-2022 End: 05-09-2022 ambulatory ELECTION CLERK ADELAIDA AICMarquesKUSHZ Facility:H1 Start: 04-28-2022 End: 04-28-2022 ambulatory ELECTION CLERK ADELAIDA AICHHOLZ Facility:H1 Start: 04-03-2022 End: 04-04-[address] FINA NIXON . Facility:[facility]1 Start: 03-19-2022 End: 03-20-2022 ambulatory LIVIER ADELAIDA CARRION Facility:H1 Start: 02-20-2022 End: 02-20-2022 [...] End: 07-03-2018 Patient encounter procedure SUKI ESCALANTE Facility:[facility] Procedures Date Procedure Procedure Detail Performing Clinician Start: 11-23-2024 MR LUMBAR SPINE WO CON Generic External Data Provider Start: 11-23-2024 XR CHEST 2V Harrison Shea Pocos DO Work Phone: Start: 11-23-2024 TBH MICROALB CREAT RATIO RANDOM Adelaida Carrion [employer] Work Phone: Start: 11-14-2024 IGP,APTIMA HPV,AGE GDLN Adelaida Carrion [employer] Work Phone: Start: 10-27-2024 Radiologic examination knee 3 views Harrison Shea Pocos DO Work Phone: Start: 09-29-2024 Radex hips bilateral with pelvis 2 views Generic External Data Provider Start: 09-26-2024 CT LUNG SCREENING LOW DOSE Adelaida Carrion [employer] Work Phone: Start: 09-26-2024 MM TOMOSYNTHESIS SCREENING BI Adelaida Carrion [employer] Work Phone: Start: 09-26-2024 XR SHOULDER RT MIN 2V Generic External D hemanth Provider Start: 09-26-2024 Mammography Adelaida Carrion [employer] Work Phone: Start: 08-16-2024 Hemoglobin glycosylated a1c Adelaida Carrion [employer] Work Phone: Start: 03-02-2024 BLOOD CULTURE 1 Generic External Davon a Provider Start: 02-16-2024 IGP,APTIMA HPV,AGE GDLN Adelaida Carrion [employer] Work Phone: Start: 01-28-2024 Urnls dip stick/tablet rgnt non-auto w/o micrscp Adelaida Carrion [employer] Work Phone: Start: 01-21-2024 MHPT CULT,URINE Generic External Davon a Provider Start: 01-05-2024 ALL BASIC METABOLIC PANEL Adelaida Carrion [employer] Work Phone: Start: 09-18-2023 Mammography Adelaida Carrion [employer] Work Phone: Start: 03-23-2023 Screening colonoscopy Adelaida Yingmarquesbob Work Phone: Start: 03-23-2023 Colonoscopy Adelaida Carrion [employer] Work Phone: Start: 09-15-2022 Mammography Adelaida Carrion [employer] Work Phone: Start: 08-28-2022 Microscopic observation [Identifier] in Cervix by Cyto stain Adelaida Sousabob [employer] Work Phone: Start: 07-02-2018 ANESTH KNEE AREA SURGERY CHAPARRITA HENDRICKS Start: 07-02-2018 REMOVAL OF SUPPORT IMPLANT SUKI ESCALANTE Start: 07-02-2018 TREAT KNEECAP FRACTURE SUKI ESCALANTE History of operative procedure on knee Status post arthroscopic surgery of right knee Scott REDDY Work Phone: Plan of Treatment Date Care Activity Detail Author Start: 03-23-2033 Screening for malign ant neoplasm of colon [facility] Start: 09-26-2025 Screening for malign ant neoplasm of breast Mammogram [facility] Start: 09-26-2025 Screening for malign ant neoplasm of lung Lung Cancer Screening Shared Decision Making [facility] Comment on above: Postponed from 12/05 (Other Medical Reasons) Start: 08-28-2025 Screening for malign ant neoplasm of cervix [facility] Start: 02-15-2025 Medicare Annual Well ness (AWV) Medicare Annual Wellness (AWV) [facility] Start: 02-13-2025 End: 02-13-2025 Patient encounter procedure 02/13/2025 9:40 AM EST [facility] [address] [place] [address] Adelaida Carrion, BRIANA [address] [place] [phone] [facility] Start: 12-27-2024 End: 12-27-2024 Patient encounter procedure 12/27/2024 10:00 AM EDT Office Visit [facility] [address] [place] [phone] Scott Stone, PA [address] [place] [address] [facility] Start: 12-26-2024 End: 12-26-2024 Patient encounter procedure 12/26/2024 10:00 AM EDT [facility] [address] [place] [phone] Scott Stone PA [address] [place] [address] Arrived [facility] Comment on above: Arrived Start: 2024 Influenza vaccination Influenza Vacc ine (#1) [facility] Start: 11-18-2024 End: 11-18-2025 XR Chest 2 Views XR chest 2 views Imaging Routine Preoperative testing Expected: 11/18/2024 (Approximate), Expires: 11/18/2025 [facility] Work Phone: Comment on above: Expected: 11/18/2024 (Approximate), Expires: 11/18/2025 Start: 11-18-2024 End: 11-18-2024 Patient encounter procedure [facility] Comment on above: Arrived Start: 11-17-2024 End: 11-17-2024 Professional / ancillary services management 11/17/2024 8:45 AM EDT Ancillary Procedure [facility] [address] [phone] [facility] Start: 11-14-2024 End: 11-14-2025 25-hydroxyvitamin D3 [Mass/volume] in Serum or Plasma Vitamin D 25 hydroxy Lab Routine Chronic kidney disease, stage 3a ([facility]) Expected: 11/14/2024 (Approximate), Expires: 11/14/2025 [facility] Comment on above: Expected: 11/14/2024 (Approximate), Expires: 11/14/2025 Start: 11-14-2024 End: 11-14-2025 CBC W Auto Differential panel - Blood CBC and differential Lab Routine Anemia, unspecified type Expected: 11/14/2024 (Approximate), Expires: 11/14/2025 [facility] Comment on above: Expected: 11/14/2024 (Approximate), Expires: 11/14/2025 Start: 11-14-2024 End: 11-14-2025 Comprehensive metabolic 2000 panel - Serum or Plasma Comprehensive metabolic panel Lab Routine Primary hypertension Bilateral lower extremity edema Osteoporosis, unspecified osteoporosis type, unspecified pathological fracture presence Chronic kidney disease, stage 3a ([facility]) Pre-diabetes Expected: 11/14/2024 (Approximate), Expires: 11/14/2025 [facility] Comment on above: Expected: 11/14/2024 (Approximate), Expires: 11/14/2025 Start: 11-14-2024 End: 11-14-2025 Lipid 1996 panel - Serum or Plasma Lipid panel Lab Routine Pre-diabetes Expected: 11/14/2024 (Approximate), Expires: 11/14/2025 [facility] Comment on above: Expected: 11/14/2024 (Approximate), Expires: 11/14/2025 Start: 11-14-2024 End: 11-14-2025 Microalbumin/Creatinine panel in random Urine Microalbumin / creatinine, urine ratio Lab Routine Primary hypertension Pre-diabetes Expected: 11/14/2024 (Approximate), Expires: 11/14/2025 [facility] Comment on above: Expected: 11/14/2024 (Approximate), Expires: 11/14/2025 Start: 11-14-2024 End: 11-14-2025 THIN PREP TIS PAP AND HR HPV DNA THIN PREP TIS PAP AND HR HPV DNA Pathology and Cytology Routine Well woman exam with routine gynecological exam Expected: 11/14/2024 (Approximate), Expires: 11/14/2025 [facility] Work Phone: Comment on above: Expected: 11/14/2024 (Approximate), Expires: 11/14/2025 Start: 11-14-2024 End: 11-14-2025 Urinalysis complete panel - Urine Urinalysis with reflex microscopic (clean catch) Lab Routine Primary hypertension Pre-diabetes Expected: 11/14/2024 (Approximate), Expires: 11/14/2025 [facility] Comment on above: Expected: 11/14/2024 (Approximate), Expires: 11/14/2025 Start: 11-14-2024 End: 11-14-2024 Patient encounter procedure [facility] Comment on above: Morbid (severe) obes ity due to excess calories ([facility]) (Primary Dx); Well woman exam with routine gynecological exam; Primary hypertension ; Anemia, unspecified type; Bilateral lower extremity edema; Osteoporosis, unspecified osteoporosis type, unspecified pathological fracture presence ; Chronic kidney disease, stage 3a ([facility]); Pre-diabetes Start: 10-13-2024 End: 10-13-2025 DXA Skeletal system Views for bone density DEXA bone density Imaging Routine Osteoporosis, unspecified osteoporosis type, unspecified pathological fracture presence Expected: 10/13/2024 (Approximate), Expires: 10/13/2025 [facility] Work Phone: Comment on above: Expected: 10/13/2024 (Approximate), Expires: 10/13/2025 Start: 10-13-2024 End: 10-13-2024 Patient encounter procedure 10/13/2024 9:00 AM EDT Office Visit [facility] [address] [place] [phone] Adelaida Carrion NP [address] [place] [address] Arrived [facility] Comment on above: Arrived Start: 09-22-2024 End: 09-22-2024 Patient encounter procedure 09/22/2024 11:00 AM EDT Office Visit [facility] [place] [address] [place] [phone] Rachel Sahni PA [address] [place] [address] [facility] [place] Start: 09-17-2024 Screening for malign ant neoplasm of breast Mammogram [facility] Start: 08-16-2024 End: 08-16-2025 CT Chest for screening WO contrast CT lung screening low dose Imaging Routine Former cigarette smoker Expected: 08/16/2024 (Approximate), Expires: 08/16/2025 [facility] Comment on above: Expected: 08/16/2024 (Approximate), Expires: 08/16/2025 Start: 08-16-2024 End: 10-16-2025 MG Breast - bilateral Screening Bilateral screening mammogram Imaging Routine Encounter for screening mammogram for malignant neoplasm of breast Expected: 08/16/2024 (Approximate), Expires: 10/16/2025 [facility] Work Phone: Comment on above: Expected: 08/16/2024 (Approximate), Expires: 10/16/2025 Start: 08-16-2024 End: 08-16-2024 Patient encounter procedure [facility] Comment on above: Bronchitis (Primary Dx); Primary hypertension (CMS/HCC); Bilateral lower extremity edema; Morbid (severe) obesity due to excess calories (CMS/HCC); Pre-diabetes Start: 08-11-2024 End: 08-11-2024 Patient encounter procedure 08/11/2024 10:30 AM EDT Office Visit [facility] [address] [place] [address] Adelaida Carrion, BRIANA [address] [place] [address] [facility] Start: 07-27-2024 End: 07-27-2024 Patient encounter procedure 07/27/2024 11:30 AM EDT Office Visit [facility] [address] [place] [phone] Adelaida Carrion NP [address] [place] [address] Primary hypertension (CMS/HCC) (Primary Dx); Morbid (severe) obesity due to excess calories (CMS/HCC) [facility] Comment on above: Primary hypertension (CMS/HCC) (Primary Dx); Morbid (severe) obesity due to excess calories (CMS/HCC) Start: 07-26-2024 End: 07-26-2024 Patient encounter procedure [facility] Comment on above: Arrived Start: 06-22-2024 End: 06-22-2024 Patient encounter procedure 06/22/2024 11:20 AM EDT Office Visit [facility] [place] [facility] [address] [place] [address] Juany Leggett PA [address] [place] [address] [facility] [place] [facility] Start: 06-15-2024 End: 06-15-2024 Patient encounter procedure 06/15/2024 9:20 AM EDT Office Visit [facility] [address] [place] [address] Adelaida Carrion, BRIANA [address] [place] [address] [facility] Start: 05-24-2024 End: 05-24-2024 [facility] Comment on above: Arrived Start: 05-18-2024 Medicare Annual Well ness (AWV) Medicare Annual Wellness (AWV) [facility] Start: 05-12-2024 End: 05-12-2024 Patient encounter procedure [facility] Comment on above: Primary hypertension (CMS/HCC) (Primary Dx); Chronic kidney disease, stage 3a (HCC) (CMS/HCC); Morbid (severe) obesity due to excess calories (CMS/HCC); Body mass index (BMI) 45.0-49.9, adult (CMS/HCC); OSMANY (obstructive sleep apnea); Hemiparesis, right (CMS/HCC); Gastroesophageal reflux disease, unspecified whether esophagitis present; Metabolic encephalopathy Start: 04-07-2024 End: 04-07-2024 Patient encounter procedure 04/07/2024 12:30 PM EST Office Visit [facility] [address] [phone] [facility] Start: 04-04-2024 End: 04-04-2024 Patient encounter procedure 04/04/2024 1:20 PM EST Office Visit [facility] [address] [place] [address] Adelaida Carrion, BRIANA [address] [place] [address] [facility] Start: 03-22-2024 End: 03-22-2024 Clinical Support 03/22/2024 10:00 AM EST Clinical Support [facility] [place] [facility] [address] [address] [place] [phone] [facility] [address] Start: 03-16-2024 End: 03-16-2024 Patient encounter procedure [facility] Comment on above: Metabolic encephalop athy (Primary Dx); OSMANY (obstructive sleep apnea); Morbid obesity (CMS/HCC); Bilateral lower extremity edema; Tobacco dependence; Bipolar disorder with severe depression (CMS/HCC); At risk for polypharmacy; Anxiety Start: 03-14-2024 End: 03-14-2024 Patient encounter procedure 03/14/2024 10:00 AM EST Office [facility] [address] [facility] [address] [place] [address] David Foster, PhD [address] [place], [place] [phone] [facility] Start: 03-11-2024 End: 03-11-2025 EEG 2 Hour Routine EEG 2 Hour Routine Neurology Routine Altered mental status, unspecified altered mental status type Expected: 03/11/2024 (Approximate), Expires: 03/11/2025 [facility] Work Phone: Comment on above: Expected: 03/11/2024 (Approximate), Expires: 03/11/2025 Start: 03-10-2024 End: 03-10-2024 Patient encounter procedure 03/10/2024 3:40 PM EST Office Visit [facility] [address] [place] [address] Rachel Sahni PA [address] [place], [place] [phone] [facility] Start: 03-01-2024 End: 03-01-2024 Patient encounter procedure 03/01/2024 12:00 PM EST Office Visit [facility] [place] [address] [facility] [address] [place] [address] Juany Leggett PA [address] [place], [place] [phone] [facility] [address] Start: 02-29-2024 End: 02-29-2024 Patient encounter procedure 02/29/2024 2:40 PM EST Office Visit [facility] [place] [address] [facility] [place] [address] Angle Brown, [employer] [address] [place] [address] [facility] [place] [facility] Start: 02-16-2024 End: [...] 02/16/2024 11:30 AM EST Procedure Visit [facility] [address] [place] [address] Adelaida Carrion NP [address] [place] [address] [facility] Start: 02-04-2024 Influenza vaccination Influenza Vacc ine (#1) [facility] Comment on above: Postponed from 12/05 (Patient Does Not Have Time) Start: 01-28-2024 End: 01-27-2025 URINARY TRACT INFECTION (HTRX) URINARY TRACT INFECTION (HTRX) Lab Routine Acute cystitis without hematuria Expected: 01/28/2024 (Approximate), Expires: 01/27/2025 [facility] Work Phone: Comment on above: Expected: 01/28/2024 (Approximate), Expires: 01/27/2025 Start: 01-28-2024 End: 01-28-2024 Patient encounter procedure [facility] Comment on above: Tobacco dependence [...] [place] [address] [place] [address] Juany Caballero NP [address] [place] [facility] [address] Start: 12-08-2023 End: 12-08-2023 Patient encounter procedure 12/08/2023 3:20 PM EDT Office Visit [facility] [place] [address] [facility] [place] [address] Angle Brown NP [address] [place], [place] [phone] [facility] [place] [address] Start: 09-16-2023 Screening for malign ant neoplasm of breast Mammogram [facility] Start: 08-17-2023 End: 08-17-2023 Patient encounter procedure 08/17/2023 9:20 AM EDT Office Visit [facility] [address] [place] [phone] Adelaida Carrion NP [address] [place] [address] [facility] Start: 05-22-2023 End: 05-22-2023 Patient encounter procedure 05/22/2023 8:45 AM EST Office Visit [facility] [address] [place] [address] Travon Hines PA [address] [facility] [address] [place] [address] [facility] Start: 05-18-2023 End: 05-18-2023 Patient encounter procedure 05/18/2023 4:30 PM EST Office Visit [facility] [address] [place] [address] Adelaida Carrion, BRIANA [address] [place] [address] Arrived [facility] Comment on above: Arrived Start: 05-18-2023 End: 05-18-2024 XR Hip - left 3 Views XR hip left 2 or 3 views Imaging Routine Left hip pain Expected: 05/18/2023 (Approximate), Expires: 05/18/2024 [facility] Work Phone: Comment on above: Expected: 05/18/2023 (Approximate), Expires: 05/18/2024 Start: 03-23-2023 [facility] Start: 11-20-2022 [facility] Start: 11-18-2022 Referral to clinical special needs nanny [facility] Start: 11-17-2022 Hospital admission [facility] Start: 11-17-2022 [facility] Start: 12-06-1991 Screening for malign ant neoplasm of cervix HPV/Cotest [facility] Start: 1961 Medicare Annual Well ness (AWV) Medicare Annual Wellness (AWV) [facility] Start: 1961 Screening for malign ant neoplasm of colon [facility] Start: 1961 Screening for malign ant neoplasm of lung Lung Cancer Screening Shared Decision Making [facility] BLOOD CULTURE 1 BLOOD CULTURE 1 Lab Routine 03/02/2024 3:20 AM EST [facility] Patient Education [facility] Work Phone: Patient referral [facility] Work Phone: XR Knee - right 3 Views XR knee 3 views right Imaging Routine Right knee pain, unspecified chronicity 10/27/2024 8:[address] [facility] Work Phone: [facility] Immunizations Immunization Date Immunization Notes Care Provider Parker stevens 01-28-2024 Influenza, injectabl e, Madin Nevaeh Canine Kidney, preservative free, quadrivalent Adelaida Aichholz [employer] Work Phone: [facility] 01-28-2024 influenza virus vaccine, unspecified formulation Adelaida Aichholz [employer] Work Phone: [facility] 08-17-2023 zoster vaccine recombinant Adelaida Aichholz [employer] Work Phone: [facility] 02-13-2023 influenza, injectabl e, quadrivalent, preservative free Adelaida Aichholz [employer] Work Phone: [facility] 02-13-2023 SARS-COV-2 (COVID-19 ) vaccine, mRNA, spike protein, LNP, PF, 50 mcg/0.5 mL Adelaida Aichholz [employer] Work Phone: [facility] 02-13-2023 influenza virus vaccine, unspecified formulation Adelaida Aichholz [employer] Work Phone: [facility] 02-19-2022 diphtheria, tetanus toxoids and pertussis vaccine Adelaida Aichholz [employer] Work Phone: [facility] 03-02-2021 Moderna SARS-CoV-2 Vaccination Adelaida Aichholz [employer] Work Phone: [facility] 08-24-2020 Moderna SARS-CoV-2 Vaccination Adelaida Aichholz [employer] Work Phone: [facility] 07-27-2020 Moderna SARS-CoV-2 Vaccination Adelaida Aichholz [employer] Work Phone: [facility] 05-28-2018 influenza, injectabl e, quadrivalent, preservative free Adelaida Aichholz Work Phone: [facility] 2017 pneumococcal conjuga te vaccine, 13 valent Adelaida Carrion NP Work Phone: [facility] Payers Date Payer Category Payer Medicare [id number] 2022 Self-pay [id number] 2022 Medicare [id number] 2022 Medicare (Managed Care) [facility] MEDIC[facility] [id number] 2008 Unknown [id number] 1961 Unknown [id number] 1961 Unknown [id number] 1961 Unknown [id number] 2.16.840.1.465627.3.579.2 .593 1960 Unknown [id number] 2.16.840.1.704146.3.579.2 .593 1961 Unknown [id number] 2.16.840.1.328307.3.579.2 .593 1961 Unknown [id number] 2.16.840.1.841771.3.579.2 .593 1961 Unknown [id number] 2.16.840.1.633341.3.579.2 .593 1961 Unknown [id number] 2.16.840.1.545986.3.579.2 .593 1961 Unknown [id number] 2.16.840.1.988978.3.579.2 .593 1961 Unknown [id number] 2.16.840.1.371568.3.579.2 .593 1961 Unknown [id number] 2.16.840.1.500743.3.579.2 .593 1961 Unknown [id number] 2.16.840.1.116382.3.579.2 .593 1961 Unknown [id number] 2.16.840.1.000838.3.579.2 .593 1961 Unknown [id number] 2.16.840.1.094066.3.579.2 .593 1961 Unknown [id number] 2.16.840.1.275830.3.579.2 .593 1961 Unknown [id number] 2.16.840.1.978728.3.579.2 .593 1961 Unknown [id number] 2.16.840.1.187073.3.579.2 .593 1961 Unknown [id number] 2.16.840.1.060551.3.579.2 .593 1961 Unknown [id number] 2.16.840.1.362247.3.579.2 .593 1961 Unknown [id number] 2.16.840.1.090120.3.579.2 .593 1961 Unknown [id number] 2.16.840.1.643527.3.579.2 .593 1961 Unknown [id number] 2.16.840.1.562040.3.579.2 .593 1961 Unknown [id number] 2.16.840.1.761894.3.579.2 .593 1961 Unknown [id number] 2.16.840.1.499751.3.579.2 .593 1961 Unknown [id number] 2.16.840.1.539210.3.579.2 .593 1961 Unknown [id number] 2.16.840.1.314614.3.579.2 .1286 1961 Unknown [id number] 2.16.840.1.252458.3.579.2 .196 1961 Unknown [id number] 2.16.840.1.709998.3.579.2 .196 1961 Unknown [id number] 2.16.840.1.051367.3.579.2 .196 1961 Unknown [id number] 2.16.840.1.908277.3.579.2 .196 1961 Unknown [id number] 2.16.840.1.468561.3.579.2 .196 1961 Unknown [id number] 2.16.840.1.451302.3.579.2 .196 1961 Unknown [id number] 2.16.840.1.607212.3.579.2 .196 1961 Unknown [id number] 2.16.840.1.257955.3.579.2 .1259 1961 Unknown [id number] 2.16.840.1.612142.3.579.2 .1259 1961 Unknown [id number] 2.16.840.1.600235.3.579.2 .1259 1961 Unknown [id number] 2.16.840.1.807950.3.579.2 .1259 -01-1961 Unknown [id number] 2.16.840.1.509167.3.579.2 .1258 1961 Unknown [id number] 2.16.840.1.407389.3.579.2 .1258 1961 Unknown [id number] 2.16.840.1.793639.3.579.2 .1258 1961 Unknown [id number] 2.16.840.1.280194.3.579.2 .1258 1961 Unknown [id number] 2.16.840.1.983260.3.579.2 .1258 1961 Unknown [id number] 2.16.840.1.391174.3.579.2 .1258 1961 Unknown [id number] 2.16.840.1.076384.3.579.2 .1258 1961 Unknown [id number] 2.16.840.1.737120.3.579.2 .1258 1961 Unknown [id number] 2.16.840.1.201589.3.579.2 .1258 1961 Unknown [id number] 2.16.840.1.867933.3.579.2 .1258 1961 Unknown [id number] 2.16.840.1.453123.3.579.2 .1258 1961 Unknown [id number] 2.16.840.1.193196.3.579.2 .1258 1961 Unknown [id number] 2.16.840.1.661744.3.579.2 .1258 1961 Unknown [id number] 2.16.840.1.150536.3.579.2 .1258 1961 Unknown [id number] 2.16.840.1.097997.3.579.2 .1258 1961 Unknown [id number] 2.16.840.1.493484.3.579.2 .1259 1961 Unknown [id number] 2.16.840.1.430944.3.579.2 .1259 1958 Medicare [id number] 1959 Unknown [id number] Private Health Insurance [facility] [id number] Unknown [id number] 2.16.840.1.744796.3.579.2 .531 Unknown [id number] 2.16.840.1.894309.3.579.2 .531 Social History Date Type Detail Facility Start: 11-18-2022 End: 10-14-2023 Tobacco smoking status NHIS Ex-smoker (finding) [facility] Start: 1960 Sex Assigned At Female [facility] Start: 03-25-2023 End: 08-16-2023 Sex Assigned At [facility] Start: 04-06-1976 End: 04-06-2016 History of tobacco use Current smoker [facility] Start: 04-06-1976 End: 04-06-2016 History of tobacco use Cigarette Smoker [facility] Start: 02-09-2023 End: 08-16-2023 Cigarettes smoked current (pack per day) - Reported 1 [facility] Start: 02-09-2023 End: 10-14-2023 Tobacco use and exposure Smokeless tobacco non-user [facility] Start: 05-18-2023 End: 12-26-2024 Alcohol intake Lifetime non-drinker (finding) [facility] Start: 11-13-2022 Alcohol Comment caffeine intake: 1-2 cups per day. [facility] Start: 10-01-2022 Gender identity Identifies as female gender (finding) [facility] Start: 10-01-2022 Sexual orientation Heterosexual (finding) [facility] Within the last year , [...] Functional status Patient at Baseline [facility] Work Phone: Mental Status Date Assessment Result Facility 11-20-2022 Cognitive function Cognitive Sta tus Patient is Progressing Toward Baseline [facility] Work Phone: Clinical Notes 10-03-2021 to 12-26-2024 MAUREEN Dailey - 12/26/2024 10:00 AM EDTPpinky Patricio - 11/18/2024 10:15 AM Padmaja Carrion NP - 11/14/2024 10:30 AM Padmaja Carrion NP - 11/14/2024 6:38 AM EDT Note Date & Type Note Facility 12-26-2024 History of Present illness Narrative Images from the original note were not included. Subjective Patient ID: Michelle Be is a 64 y.o. female. Chief Complaint: Post-op of the Right Knee (Scope DAP 12/15/24 TSCNCO) Last Surgery: No surgery found Last Surgery Date: No surgery found HPI Michelle comes in with her she is doing fairly well she is taking the aspirin as prescribed she states she is unable to take ibuprofen type medication due to prior gastric bypass but really has slowed down and stopped taking the stronger narcotic medication. She is doing her own home exercises as given postoperatively. She had some bruising associated from her tourniquet but overall has some medial portal bruising which is somewhat sore but [...] from the surgery. documented in this encounter [facility] 12-26-2024 Instructions MAUREEN Dailey - 12/26/2024 10:00 AM EDT [...] from the surgery. documented in this encounter [facility] 11-18-2024 History of Present illness Narrative Images [...] S/P bariatric surgery Shingles Slurred speech Stroke ([facility]) 2018 Tenosynovitis, de Quervain Thoracic back [...] biotin 5 MG tablet Pt taking OTC ([employer]) Calcium Citrate-Vitamin D (CITRACAL + D PO) Pt taking OTC ([employer]) Cannabinoids (medical cannabis) 1 each carvedilol (COREG) [...] Daily Magnesium 400 MG capsule Pt taking OTC([employer]) Melatonin 12 MG tablet 1 tablet, Nightly Multiple Vitamins-Minerals (BARIATRIC MULTIVITAMINS/IRON PO) Pt taking OTC ([facility]) omeprazole (PRILOSEC) 20 mg, Oral, Daily before [...] 12:22 PM EDT documented in this encounter [facility] 11-14-2024 History of Present illness Narrative [...] biotin 5 MG tablet Pt taking OTC ([employer]) Calcium Citrate-Vitamin D (CITRACAL + D PO) Pt taking OTC ([employer]) Cannabinoids (medical cannabis) 1 each carvedilol (COREG) [...] Daily Magnesium 400 MG capsule Pt taking OTC([employer]) Melatonin 12 MG tablet 1 tablet, Nightly Multiple Vitamins-Minerals (BARIATRIC MULTIVITAMINS/IRON PO) Pt taking OTC ([employer]) omeprazole (PRILOSEC) 20 mg, Oral, Daily before [...] Anxiety 05/18/2023 Bipolar disorder with severe depression ([facility]) 05/18/2023 Brain lesion Brain vascular malformation ([facility]) Chronic pain disorder Closed fracture of patella 02/04/2018 Colon polyps Constipation Degenerative cervical disc Degenerative lumbar disc Depression 05/18/2023 Diastolic dysfunction Dizziness 05/18/2023 Dysphagia Fibromyalgia Fibromyalgia Fibromyalgia, primary 2009 Gastrocnemius equinus GERD (gastroesophageal reflux disease) Heart murmur Hematoma of right breast Hemiparesis ([facility]) Hemiparesis, right ([facility]) Hemorrhoid int/external hemorrhoids Hiatal hernia Iron deficiency Left foot pain 03/25/2023 Lower extremity edema Memory loss 2009 Migraine 03/05/2024 Mood disorder mixed mood disorder OSMANY (obstructive sleep apnea) Osteoporosis Overactive bladder Pre-diabetes Primary hypertension 03/25/2023 PTSD (post-traumatic stress disorder) Restless leg Restless leg syndrome 1989 Right knee pain Right sided weakness S/P bariatric surgery Shingles Slurred speech Stroke ([facility]) 2018 Tenosynovitis, de Quervain Thoracic back [...] nursing note reviewed. Exam conducted with a community cultural development officer present. Constitutional: General: She is not in [...] Morbid (severe) obesity due to excess calories (CMS-HCC) - Primary Discussed with patient their BMI [...] urine ratio Chronic kidney disease, stage 3a ([facility]) Monitor labs at minimum every year Relevant Orders Comprehensive metabolic panel Vitamin D 25 hydroxy Associated Problem(s): Chronic kidney disease, stage 3a ([facility]) Monitor labs at minimum every year [...] Morbid (severe) obesity due to excess calories ([facility]) Discussed with patient their BMI (actual, verses recommended). We have also discussed lifestyle modifications: attempts to perform physical activity as chronic conditions allow, also to monitor dietary intake: increasing protein/fruits/veggies and lowering carb intake (unless contraindicated). Limit sodas, juices, and sugary drinks. Has had bariatric surgeries in the past documented in this encounter [facility] 10-27-2024 History of Present illness Narrative [...] Daily Magnesium 400 MG capsule Pt taking OTC([employer]) Melatonin 12 MG tablet 1 tablet, Nightly Multiple Vitamins-Minerals (BARIATRIC MULTIVITAMINS/IRON PO) Pt taking OTC ([employer]) omeprazole (PRILOSEC) 20 mg, Oral, Daily before [...] 12:11 PM EDT documented in this encounter [facility] 10-13-2024 History of Present illness Narrative [...] manages your OSMANY: Daniela Associated Problem(s): Disorientation [place] to be related to not using PAP [...] going to have out patient MRI . [place] that she had some encephalopathy with not wearing PAP She is now wearing her pap. Is back to her baseline able to remember words etc. No weakness no dizziness noted either Follows with Juany Rascon [employer] SUBJECTIVE: MEDICATIONS: Current Outpatient Medications Medication Instructions amLODIPine (NORVASC) 10 mg, Oral, Daily biotin 5 MG tablet Pt taking OTC ([employer]) Calcium Citrate-Vitamin D (CITRACAL + D PO) Pt taking OTC ([employer]) carvedilol (COREG) 12.5 mg, Oral, 2 times [...] Daily Magnesium 400 MG capsule Pt taking OTC([employer]) Melatonin 12 MG tablet 1 tablet, Nightly Multiple Vitamins-Minerals (BARIATRIC MULTIVITAMINS/IRON PO) Pt taking OTC ([employer]) omeprazole (PRILOSEC) 20 mg, Oral, Daily before [...] Anxiety 05/18/2023 Bipolar disorder with severe depression ([facility]) 05/18/2023 Brain lesion Brain vascular malformation ([facility]) Chronic pain disorder Closed fracture of patella 02/04/2018 Colon polyps Constipation Degenerative cervical disc Degenerative lumbar disc Depression 05/18/2023 Diastolic dysfunction Dizziness 05/18/2023 Dysphagia Fibromyalgia Fibromyalgia Gastrocnemius equinus GERD (gastroesophageal reflux disease) Heart murmur Hematoma of right breast Hemiparesis ([facility]) Hemiparesis, right ([facility]) Hemorrhoid int/external hemorrhoids Hiatal hernia Iron deficiency Left foot pain 03/25/2023 Lower extremity edema Mood disorder mixed mood disorder OSMANY (obstructive sleep apnea) Osteoporosis Overactive bladder Pre-diabetes Primary hypertension 03/25/2023 PTSD (post-traumatic stress disorder) Restless leg Right knee pain Right sided weakness S/P bariatric surgery Shingles Slurred speech Stroke ([facility]) 2018 Tenosynovitis, de Quervain Thoracic back [...] meds: amlodipine, losartan, aldactone Disorientation - Primary [place] to be related to not using PAP [...] MG DR capsule documented in this encounter [facility] 08-16-2024 History of Present illness Narrative [...] biotin 5 MG tablet Pt taking OTC ([employer]) Calcium Citrate-Vitamin D (CITRACAL + D PO) Pt taking OTC ([employer]) carvedilol (COREG) 12.5 mg, Oral, 2 times daily with meals cetirizine (ZYRTEC) 10 mg, Oral, Daily diclofenac (Voltaren) 50 MG EC tablet DULoxetine (CYMBALTA) 60 mg, 2 times daily fluticasone (Flonase) 50 MCG/ACT nasal spray 2 sprays, Each Nostril, Daily gabapentin (NEURONTIN) 300 mg, Oral, 2 times daily, Due now losartan (COZAAR) 100 mg, Oral, Daily Magnesium 400 MG capsule Pt taking OTC([facility]) Melatonin 12 MG tablet 1 tablet, Nightly Multiple Vitamins-Minerals (BARIATRIC MULTIVITAMINS/IRON PO) Pt taking OTC ([facility]) omeprazole (PRILOSEC) 20 mg, Oral, Daily before [...] Anxiety 05/18/2023 Bipolar disorder with severe depression ([facility]) 05/18/2023 Brain lesion Brain vascular malformation Chronic pain disorder Closed fracture of patella 02/04/2018 Colon polyps Constipation Degenerative cervical disc Degenerative lumbar disc Depression ([facility]) 05/18/2023 Diastolic dysfunction Dizziness 05/18/2023 Dysphagia Fibromyalgia Fibromyalgia Gastrocnemius equinus GERD (gastroesophageal reflux disease) Heart murmur Hematoma of right breast Hemiparesis ([facility]) Hemiparesis, right ([facility]) Hemorrhoid int/external hemorrhoids Hiatal hernia Iron deficiency Left foot pain 03/25/2023 Lower extremity edema Mood disorder ([facility]) mixed mood disorder OSMNAY (obstructive sleep apnea) Osteoporosis ([facility]) Overactive bladder Pre-diabetes Primary hypertension ([facility]) 03/25/2023 PTSD (post-traumatic stress disorder) ([facility]) Restless leg Right knee pain Right sided weakness S/P bariatric surgery Shingles Slurred speech Stroke ([facility]) 2018 Tenosynovitis, de Quervain Thoracic back [...] trelegy 100's resolved documented in this encounter [facility] 08-16-2024 Instructions Adelaida Carrion NP - 08/16/2024 11:30 AM EDT Mammogram and lung cancer CT documented in this encounter [facility] 07-27-2024 History of Present illness Narrative Associated Problem(s): Bronchitis Continue OTC mucus relief meds Will add trelegy for bronchitis 100's #2 samples lot [id number], exp 10/28 Fu if not better No s/s resp distress [facility]- 07/24/24 Bronchitis & Leurisy [...] with chief complaint of Hospital Follow-up HPI: [facility]- 07/24/24 Bronchitis & Leurisy [...] biotin 5 MG tablet Pt taking OTC ([employer]) Calcium Citrate-Vitamin D (CITRACAL + D PO) Pt taking OTC ([employer]) carvedilol (COREG) 12.5 mg, Oral, 2 times daily with meals cetirizine (ZYRTEC) 10 mg, Oral, Daily diclofenac (Voltaren) 50 MG EC tablet DULoxetine (CYMBALTA) 60 mg, 2 times daily fluticasone (Flonase) 50 MCG/ACT nasal spray 2 sprays, Each Nostril, Daily gabapentin (NEURONTIN) 300 mg, Oral, 2 times daily, Due now losartan (COZAAR) 100 mg, Oral, Daily Magnesium 400 MG capsule Pt taking OTC([employer]) Melatonin 12 MG tablet 1 tablet, Nightly Multiple Vitamins-Minerals (BARIATRIC MULTIVITAMINS/IRON PO) Pt taking OTC ([employer]) omeprazole (PRILOSEC) 20 mg, Oral, Daily before [...] Anxiety 05/18/2023 Bipolar disorder with severe depression ([facility]) 05/18/2023 Brain lesion Brain vascular malformation Chronic pain disorder Closed fracture of patella 02/04/2018 Colon polyps Constipation Degenerative cervical disc Degenerative lumbar disc Depression ([facility]) 05/18/2023 Diastolic dysfunction Dizziness 05/18/2023 Dysphagia Fibromyalgia Fibromyalgia Gastrocnemius equinus GERD (gastroesophageal reflux disease) Heart murmur Hematoma of right breast Hemiparesis ([facility]) Hemiparesis, right ([facility]) Hemorrhoid int/external hemorrhoids Hiatal hernia Iron deficiency Left foot pain 03/25/2023 Lower extremity edema Mood disorder ([facility]) mixed mood disorder OSMANY (obstructive sleep apnea) Osteoporosis ([facility]) Overactive bladder Pre-diabetes Primary hypertension ([facility]) 03/25/2023 PTSD (post-traumatic stress disorder) ([facility]) Restless leg Right knee pain Right sided weakness S/P bariatric surgery Shingles Slurred speech Stroke ([facility]) 2018 Tenosynovitis, de Quervain Thoracic back [...] meds: amlodipine, losartan documented in this encounter [facility] 07-26-2024 History of Present illness Narrative Images from the original note were not included. Subjective Chief Complaint Patient presents with Altered Mental Status Past Medical History: Diagnosis Date Abnormal mammogram of left breast Achilles tendinitis, right leg Acute gout of right foot, unspecified cause Allergic rhinitis 05/18/2023 Anemia Anxiety 05/18/2023 Bipolar disorder with severe depression ([facility]) 05/18/2023 Brain lesion Brain vascular malformation Chronic pain disorder Closed fracture of patella 02/04/2018 Colon polyps Constipation Degenerative cervical disc Degenerative lumbar disc Depression ([facility]) 05/18/2023 Diastolic dysfunction Dizziness 05/18/2023 Dysphagia Fibromyalgia Fibromyalgia Gastrocnemius equinus GERD (gastroesophageal reflux disease) Heart murmur Hematoma of right breast Hemiparesis ([facility]) Hemiparesis, right ([facility]) Hemorrhoid int/external hemorrhoids Hiatal hernia Iron deficiency Left foot pain 03/25/2023 Lower extremity edema Mood disorder ([facility]) mixed mood disorder OSMANY (obstructive sleep apnea) Osteoporosis ([facility]) Overactive bladder Pre-diabetes Primary hypertension ([facility]) 03/25/2023 PTSD (post-traumatic stress disorder) ([facility]) Restless leg Right knee pain Right sided weakness S/P bariatric surgery Shingles Slurred speech Stroke ([facility]) 2018 Tenosynovitis, de Quervain Thoracic back [...] Review Audit Reviewed by Beronica Reyes MA (Dye Beck Reel Operator) on 07/26/24 at 1049 Medication Order Taking? Sig Documenting Provider Last Dose Status amLODIPine (Norvasc) 10 MG tablet [id number] Take 1 tablet (10 mg) by mouth Daily Adelaida Carrion NP 06/11/242358 azithromycin (Zithromax) 250 MG tablet [id number] Day #1: 2 tablets, and Day 2-5: 1 tablet daily Adelaida Carrion NP Active biotin 5 MG tablet [id number] Pt taking OTC ([employer]) Historical Provider, Active Calcium Citrate-Vitamin D (CITRACAL + D PO) [id number] Pt taking OTC ([employer]) Historical Provider, Active carvedilol (Coreg) 12.5 MG tablet [id number] Take 1 tablet (12.5 mg) by mouth in the morning and 1 tablet (12.5 mg) in the evening. Take with meals. Adelaida Carrion NP 06/11/242358 cetirizine (ZyrTEC) 10 MG tablet [id number] Take 1 tablet (10 mg) by mouth Daily Adelaida Carrion NP 06/11/242358 DULoxetine (Cymbalta) [address] capsule [id number] Take 60 mg by mouth in the morning and 60 mg before bedtime. Do not crush or chew.. Active fluticasone (Flonase) 50 MCG/ACT nasal spray [id number] Administer 2 sprays into each nostril Daily Adelaida Carrion NP 06/11/242358 gabapentin (Neurontin) 300 MG capsule [id number] Take 1 capsule (300 mg) by mouth in the morning and 1 capsule (300 mg) before bedtime. Due now. MAUREEN Akbar Active losartan (Cozaar) 100 MG tablet [id number] Take 1 tablet (100 mg) by mouth Daily Adelaida Carrion NP 06/11/24 235 Magnesium 400 MG capsule [id number] Pt taking OTC([employer]) Historical Provider, Active Melatonin 12 MG tablet [id number] Take 1 tablet by mouth at bedtime Active Multiple Vitamins-Minerals (BARIATRIC MULTIVITAMINS/IRON PO) [id number] Pt taking OTC ([employer]) Historical Provider, Active nystatin (Mycostatin) 588102 UNIT/GM powder [id number] Apply 1 application topically in the morning and 1 application before bedtime. Adelaida Carrion NP Active nystatin (Mycostatin) cream [id number] Adelaida Carrion NP Active omeprazole (PriLOSEC) [address] capsule [id number] Take 1 capsule (20 mg) by mouth in the morning. Take before meals. Adelaida Carrion NP 06/11/24 235 rOPINIRole (Requip) 2 MG tablet [id number] Take 1 tablet (2 mg) by mouth at bedtime MAUREEN Akbar Active spironolactone (Aldactone) 50 MG tablet [id number] Take 1 tablet (50 mg) by mouth Daily Adelaida Carrion NP 06/11/24 235 tiZANidine (Zanaflex) 4 MG tablet [id number] Take 4 mg by mouth every 8 (eight) hours if needed for muscle spasms 1-2 tablets Adelaida Carrion NP Active traZODone (Desyrel) 150 MG tablet [id number] Take 150 mg by mouth at bedtime Active Vraylar 3 MG capsule [id number] Active HPI AMS -weaned Lacosimide -denies any further headaches and dizziness -denies any recent episodes of confusion -trouble with short and half-way memory -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 LUE Strength deltoid, biceps, triceps, wrist extensors, wrist extensors, wrist flexor, pinsetter mechanic automatic strength 5/5. RLE Strength illopsoas, quadriceps, tibialis [...] not all inclusive. Patient was admitted to [facility] from the [facility] on 08/24/2023 with acute respiratory failure and confusion thought to be secondary to metabolic encephalopathy. MOCA 03/01/24 was 26/30. She notes she did speech therapy and responded well to this. She was recently evaluated at [facility] [place]/02/2024 for severe encephalopathy. She had brain [...] Averages almost 6 hours a night. ___ [facility] evaluation 02/29/2024: Brain MRI with and without [...] of the brain in July 2019 showed [id number] white matter changes with the largest area [...] in 2 months documented in this encounter [facility] 05-12-2024 History of Present illness Narrative [...] includes CVA. There is no history of CAD/IA, heart failure or PVD. GERD She reports [...] biotin 5 MG tablet Pt taking OTC ([employer]) Calcium Citrate-Vitamin D (CITRACAL + D PO) Pt taking OTC ([facility]) carvedilol (COREG) 12.5 mg, Oral, 2 times [...] Daily Magnesium 400 MG capsule Pt taking OTC([facility]) Melatonin 12 MG tablet 1 tablet, Nightly Multiple Vitamins-Minerals (BARIATRIC MULTIVITAMINS/IRON PO) Pt taking OTC ([facility]) nystatin (Mycostatin) [id number] UNIT/GM powder 1 application , 2 times [...] Anxiety 05/18/2023 Bipolar disorder with severe depression ([facility]) 05/18/2023 Brain lesion Brain vascular malformation Chronic pain disorder Closed fracture of patella 02/04/2018 Colon polyps Constipation Degenerative cervical disc Degenerative lumbar disc Depression ([facility]) 05/18/2023 Diastolic dysfunction Dizziness 05/18/2023 Dysphagia Fibromyalgia Fibromyalgia Gastrocnemius equinus GERD (gastroesophageal reflux disease) Heart murmur Hematoma of right breast Hemiparesis ([facility]) Hemiparesis, right ([facility]) Hemorrhoid int/external hemorrhoids Hiatal hernia Iron deficiency Left foot pain 03/25/2023 Lower extremity edema Mood disorder ([facility]) mixed mood disorder OSMANY (obstructive sleep apnea) Osteoporosis ([facility]) Overactive bladder Pre-diabetes Primary hypertension ([facility]) 03/25/2023 PTSD (post-traumatic stress disorder) ([facility]) Restless leg Right knee pain Right sided weakness S/P bariatric surgery Shingles Slurred speech Stroke ([facility]) 2018 Tenosynovitis, de Quervain Thoracic back [...] that manages your OSMANY: Daniela Hemiparesis, right ([facility]) Stable with this from prior stroke GERD [...] spironolactone (Aldactone) 50 MG tablet Primary hypertension ([facility]) - Primary Please check blood pressure daily and record DASH diet Limit caffeine Take medication as directed Contact office if chest pain, pressure, dizziness, shortness of breath, swelling legs Recommend slow position changes Current meds: amlodipine, losartan Chronic kidney disease, stage 3a (HCC) ([facility]) Monitor labs at minimum every year Body mass index (BMI) 45.0-49.9, adult ([facility]) Other Visit Diagnoses Essential (primary) hypertension ([facility]) Relevant Medications amLODIPine (Norvasc) 10 MG tablet [...] Morbid (severe) obesity due to excess calories ([facility]) Discussed with patient their BMI (actual, verses recommended). We have also discussed lifestyle modifications: attempts to perform physical activity as chronic conditions allow, also to monitor dietary intake: increasing protein/fruits/veggies and lowering carb intake (unless contraindicated). Limit sodas, juices, and sugary drinks. Has had bariatric surgeries in the past Associated Problem(s): Chronic kidney disease, stage 3a (HCC) ([facility]) Monitor labs at minimum every year Associated Problem(s): GERD (gastroesophageal reflux disease) Recommendations: freq small meals, nothing to eat or drink at least 2 hours prior to bed, limit caffeine, alcohol, as well as spicy foods Meds to limit or avoid if possible: NSAIDS Elevate HOB if possible Current meds: omeprazole Associated Problem(s): Primary hypertension ([facility]) Please check blood pressure daily and [...] that supplies your machine and tubing/filters etc: [facility] Doctor that manages your OSMANY: Daniela Associated Problem(s): Hemiparesis, right (CMS/HCC) Stable with this from prior stroke documented in this encounter [facility] 05-12-2024 Instructions Adelaida Carrion NP - 05/12/2024 10:00 AM EST No changes in meds documented in this encounter [facility] 04-12-2024 Telephone encounter Note 03/10/2024 Continue Gabapentin 300 mg BID for RLS. Continue clonazepam 0.5mg PO BID for RLS. This was decreased during recent hospitalization Continue Vimpat 50mg PO BID for seizure prevention [facility] 04-12-2024 Miscellaneous Notes 03/10/2024 Continue Gabapentin 300 mg BID for RLS. Continue clonazepam 0.5mg PO BID for RLS. This was decreased during recent hospitalization Continue Vimpat 50mg PO BID for seizure prevention documented in this encounter [facility] 04-07-2024 History of Present illness [...] performance and score on it. Admitted to [facility] from the [facility] on 08/24/2023 with acute respiratory failure and confusion thought to be secondary to metabolic encephalopathy. LTME in August 2023 negative. Recently evaluated at [facility] on 03/02/2024 for severe encephalopathy. Brain MRI [...] any history of alcohol/substance abuse. Reformed smoker. [place] language [place]. Reported relocating from [place] to [place] in 2011. Completed a bachelor's degree. 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 Currently on disability. Resides with of 26 years along with her son, grandson, and 2 dogs. Has 2 children from a prior relationship. MEDICAL HISTORY/MEDICATION: MEDICATIONS: Current Outpatient Medications Medication Instructions amLODIPine (NORVASC) 10 mg, Oral, Daily biotin 5 MG tablet Pt taking OTC ([employer]) Calcium Citrate-Vitamin D (CITRACAL + D PO) Pt taking OTC ([employer]) carvedilol (COREG) 12.5 mg, Oral, 2 times [...] Daily Magnesium 400 MG capsule Pt taking OTC([employer]) Melatonin 12 MG tablet 1 tablet, Oral, Nightly Multiple Vitamins-Minerals (BARIATRIC MULTIVITAMINS/IRON PO) Pt taking OTC ([employer]) nystatin (Mycostatin) [id number] UNIT/GM powder 1 application , 2 times [...] >16th %ile. Motor/Speed of Processing: Right-handed. Student Accounts Coordinator strength 16th %ile with right-hand, 38th %ile [...] Learning of a word list 79th %ile ([id number]), delayed recall 93rd %ile. Recognition discriminability 93rd [...] Please contact me with any questions at [phone]. documented in this encounter [facility] 03-16-2024 History of Present illness Narrative Associated Problem(s): Right bundle branch block (RBBB) determined by electrocardiography At this point I will look at her past EKG's, She has had ECHO in past No symptoms, at this time I do not think that further testing is needed Pt is having a memory test done [place] apr 07 [place] Pt is anxious and afraid-pt father had dementia Spironolactone pt is asking for 50mg instead of 25mg Images from the original note were not included. Michelle Be is a 63 y.o. female presents with chief complaint of Anxiety HPI: Here for hospital follow up: AMS She was evaluated at [facility], was seen by Neurology reviewed notes from [...] biotin 5 MG tablet Pt taking OTC ([employer]) Calcium Citrate-Vitamin D (CITRACAL + D PO) Pt taking OTC ([employer]) carvedilol (COREG) 12.5 mg, Oral, 2 times [...] Daily Magnesium 400 MG capsule Pt taking OTC([employer]) Melatonin 12 MG tablet 1 tablet, Oral, Nightly Multiple Vitamins-Minerals (BARIATRIC MULTIVITAMINS/IRON PO) Pt taking OTC ([employer]) nystatin (Mycostatin) [id number] UNIT/GM powder 1 application , 2 times [...] Anxiety 05/18/2023 Bipolar disorder with severe depression ([facility]) 05/18/2023 Brain lesion Brain vascular malformation Chronic pain disorder Closed fracture of patella 02/04/2018 Colon polyps Constipation Degenerative cervical disc Degenerative lumbar disc Depression ([facility]) 05/18/2023 Diastolic dysfunction Dizziness 05/18/2023 Dysphagia Fibromyalgia Fibromyalgia Gastrocnemius equinus GERD (gastroesophageal reflux disease) Heart murmur Hematoma of right breast Hemiparesis ([facility]) Hemiparesis, right ([facility]) Hemorrhoid int/external hemorrhoids Hiatal hernia Iron deficiency Left foot pain 03/25/2023 Lower extremity edema Mood disorder ([facility]) mixed mood disorder OSMANY (obstructive sleep apnea) Osteoporosis ([facility]) Overactive bladder Pre-diabetes Primary hypertension ([facility]) 03/25/2023 PTSD (post-traumatic stress disorder) ([facility]) Restless leg Right knee pain Right sided weakness S/P bariatric surgery Shingles Slurred speech Stroke ([facility]) 2018 Tenosynovitis, de Quervain Thoracic back [...] to have evaluation documented in this encounter [facility] 03-16-2024 Instructions Adelaida Carrion NP - 03/16/2024 10:00 AM EST Spironolactone: I discontinued the 25mg script for this, sent a new script to [facility], for a 50mg pill, you will take 1 pill daily Memory testing in Apr 2024 Follow up with me in early May, sooner if needed documented in this encounter [facility] 03-16-2024 Telephone encounter Note Katerina, sent to [facility]. [facility] 03-16-2024 Miscellaneous Notes Yep, sent to [facility]. Patient calls and states that hospital lowered her requip to 2 mg at bed time. Okay to send as new dosage? documented in this encounter [facility] 03-15-2024 Telephone encounter Note Patient calls and states that hospital lowered her requip to 2 mg at bed time. Okay to send as new dosage? [facility] 03-14-2024 History of Present illness [...] homebody. Remains involved as a classically trained [employer]. Diagnosed with OSMANY and RLS, wears CPAP nightly. Pain complaints include fibromyalgia and degenerative disc disease. Also has prior history of migraines which have resolved over the past 17 years. Neurological history includes small left thalamic stroke in 2016. MoCA . Patient accurately recalled this screening measure as well as her overall performance and score on it. Admitted to [facility] from the [facility] on 08/24/2023 with acute respiratory failure and confusion thought to be secondary to metabolic encephalopathy. Previous LTME in August 2023 negative. Recently evaluated at [facility] on 03/02/2024 for severe encephalopathy. Brain MRI [...] any history of alcohol/substance abuse. Reformed smoker. [place] language [place]yrgyz. Reported relocating from [place] to [place] in 2011. Completed a bachelors degree. Previously [...] hypertension (CMS/HCC) 03/25/2023 PTSD (post-traumatic stress disorder) ([facility]) Restless leg Right knee pain Right sided weakness S/P bariatric surgery Shingles Slurred speech Stroke ([facility]) 2018 Tenosynovitis, de Quervain Thoracic back pain, unspecified back pain laterality, unspecified chronicity Tobacco dependence Vertigo, benign paroxysmal Yeast infection of the skin 05/18/2023 MEDICATIONS: Current Outpatient Medications Medication Instructions amLODIPine (NORVASC) 10 mg, Oral, Daily biotin 5 MG tablet Pt taking OTC ([facility]) Calcium Citrate-Vitamin D (CITRACAL + D PO) Pt taking OTC ([facility]) carvedilol (COREG) 12.5 mg, Oral, 2 times [...] Daily Magnesium 400 MG capsule Pt taking OTC([employer]) Melatonin 12 MG tablet 1 tablet, Oral, Nightly Multiple Vitamins-Minerals (BARIATRIC MULTIVITAMINS/IRON PO) Pt taking OTC ([facility]) nystatin (Mycostatin) [id number] UNIT/GM powder 1 application , Topical, 2 [...] Please contact me with any questions at [phone]. documented in this encounter [facility] 02-16-2024 History of Present illness [...] biotin 5 MG tablet Pt taking OTC ([employer]) Calcium Citrate-Vitamin D (CITRACAL + D PO) Pt taking OTC ([employer]) carvedilol (COREG) 12.5 mg, Oral, 2 times [...] Daily Magnesium 400 MG capsule Pt taking OTC([facility]) Melatonin 12 MG tablet 1 tablet, Oral, Nightly Multiple Vitamins-Minerals (BARIATRIC MULTIVITAMINS/IRON PO) Pt taking OTC ([facility]) nystatin (Mycostatin) [id number] UNIT/GM powder 1 application , Topical, 2 [...] Anxiety 05/18/2023 Bipolar disorder with severe depression ([facility]) 05/18/2023 Brain lesion Brain vascular malformation Chronic pain disorder Closed fracture of patella 02/04/2018 Colon polyps Constipation Degenerative cervical disc Degenerative lumbar disc Depression ([facility]) 05/18/2023 Diastolic dysfunction Dizziness 05/18/2023 Dysphagia Fibromyalgia Fibromyalgia Gastrocnemius equinus GERD (gastroesophageal reflux disease) Heart murmur Hematoma of right breast Hemiparesis ([facility]) Hemiparesis, right ([facility]) Hemorrhoid int/external hemorrhoids Hiatal hernia Iron deficiency Left foot pain 03/25/2023 Lower extremity edema Mood disorder ([facility]) mixed mood disorder OSMANY (obstructive sleep apnea) Osteoporosis ([facility]) Overactive bladder Pre-diabetes Primary hypertension ([facility]) 03/25/2023 PTSD (post-traumatic stress disorder) ([facility]) Restless leg Right knee pain Right sided weakness S/P bariatric surgery Shingles Slurred speech Stroke ([facility]) 2018 Tenosynovitis, de Quervain Thoracic back [...] nursing note reviewed. Exam conducted with a community cultural development officer present. Constitutional: General: She is not in [...] chronic conditions allow documented in this encounter [facility] 01-28-2024 History of Present illness [...] fu for UTI and dehydration. See [facility] for HPI Was sent home on Bactrim. Feels completely fine now, no fever, chills, malodorous urine, no constipation diarrhea or abd pain SUBJECTIVE: MEDICATIONS: Current Outpatient Medications Medication Instructions amLODIPine (NORVASC) 10 mg, Oral, Daily biotin 5 MG tablet Pt taking OTC ([employer]) Calcium Citrate-Vitamin D (CITRACAL + D PO) Pt taking OTC ([employer]) carvedilol (COREG) 12.5 mg, Oral, 2 times [...] Daily Magnesium 400 MG capsule Pt taking OTC([employer]) Melatonin 12 MG tablet 1 tablet, Oral, Nightly Multiple Vitamins-Minerals (BARIATRIC MULTIVITAMINS/IRON PO) Pt taking OTC ([employer]) nystatin (Mycostatin) [id number] UNIT/GM powder 1 application , Topical, 2 [...] pain 03/25/2023 Lower extremity edema Mood disorder ([facility]) mixed mood disorder OSMANY (obstructive sleep apnea) Osteoporosis (CMS/HCC) Overactive bladder Pre-diabetes Primary hypertension ([facility]) 03/25/2023 PTSD (post-traumatic stress disorder) ([facility]) Restless leg Right knee pain Right sided weakness S/P bariatric surgery Shingles Slurred speech Stroke ([facility]) 2018 Tenosynovitis, de Quervain Thoracic back [...] of the risks of continued smoking: stroke, IA, all forms of cancer, lung disease, and [...] Relevant Orders Flu vaccine, MDCK, quadrivalent, PF ([id number]) (Flucelvax single dose syringe) Associated Problem(s): Tobacco dependence The patient has been advised of the risks of continued smoking: stroke, IA, all forms of cancer, lung disease, and . Options for quitting smoking include: cold turkey, hypnosis, acupuncture, nicotine replacement meds (gum, lozenges, and patches), Buproprion, and Varenicline. At this time pt is encouraged to evaluate their goals for wanting to quit smoking, and reach out to provider when ready to start this process documented in this encounter [facility] 01-04-2024 History of Present illness [...] compliance problems. There is no history of CAD/IA, heart failure or PVD. Identifiable causes of hypertension include sleep apnea. SUBJECTIVE: MEDICATIONS: Current Outpatient Medications Medication Instructions amLODIPine (NORVASC) 10 mg, Oral, Daily biotin 5 MG tablet Pt taking OTC ([employer]) Calcium Citrate-Vitamin D (CITRACAL + D PO) Pt taking OTC ([employer]) carvedilol (COREG) 12.5 mg, Oral, 2 times [...] Daily Magnesium 400 MG capsule Pt taking OTC([employer]) Melatonin 12 MG tablet 1 tablet, Oral, Nightly Multiple Vitamins-Minerals (BARIATRIC MULTIVITAMINS/IRON PO) Pt taking OTC ([employer]) nystatin (Mycostatin) [id number] UNIT/GM powder 1 application , Topical, 2 [...] Anxiety 05/18/2023 Bipolar disorder with severe depression ([facility]) 05/18/2023 Brain lesion Brain vascular malformation Chronic pain disorder Closed fracture of patella 02/04/2018 Colon polyps Constipation Degenerative cervical disc Degenerative lumbar disc Depression ([facility]) 05/18/2023 Diastolic dysfunction Dizziness 05/18/2023 Dysphagia Fibromyalgia Fibromyalgia Gastrocnemius equinus GERD (gastroesophageal reflux disease) Heart murmur Hematoma of right breast Hemiparesis ([facility]) Hemiparesis, right ([facility]) Hemorrhoid int/external hemorrhoids Hiatal hernia Iron deficiency Left foot pain 03/25/2023 Lower extremity edema Mood disorder ([facility]) mixed mood disorder OSMANY (obstructive sleep apnea) Osteoporosis ([facility]) Overactive bladder Pre-diabetes Primary hypertension ([facility]) 03/25/2023 PTSD (post-traumatic stress disorder) ([facility]) Restless leg Right knee pain Right sided weakness S/P bariatric surgery Shingles Slurred speech Stroke ([facility]) 2018 Tenosynovitis, de Quervain Thoracic back [...] MCG/ACT nasal spray documented in this encounter [facility] 12-09-2023 History of Present illness [...] machine. She is normally seen at the [facility] and was last seen on [...] mood disorder OSMANY (obstructive sleep apnea) Osteoporosis ([facility]) Overactive bladder Pre-diabetes Primary hypertension ([facility]) 03/25/2023 PTSD (post-traumatic stress disorder) ([facility]) Restless leg Right knee pain Right sided weakness S/P bariatric surgery Shingles Slurred speech Stroke ([facility]) 2018 Tenosynovitis, de Quervain Thoracic back [...] melatonin. She was last seen in the [facility] on June 24, 2023. Since [...] for short term insomnia and not for terminal operator insomnia. She is compliant on her [...] was counseled on the risks of stroke, IA, and sudden with OSMANY, along with the [...] clinic: one year documented in this encounter [facility] 12-08-2023 History of Present illness [...] Heart murmur Hematoma of right breast Hemiparesis ([facility]) Hemiparesis, right ([facility]) Hemorrhoid int/external hemorrhoids Hiatal hernia Iron deficiency Left foot pain 03/25/2023 Lower extremity edema Mood disorder ([facility]) mixed mood disorder OSMANY (obstructive sleep apnea) Osteoporosis ([facility]) Overactive bladder Pre-diabetes Primary hypertension ([facility]) 03/25/2023 PTSD (post-traumatic stress disorder) ([facility]) Restless leg Right knee pain Right sided weakness S/P bariatric surgery Shingles Slurred speech Stroke ([facility]) 2018 Tenosynovitis, de Quervain Thoracic back [...] Review Audit Reviewed by Festus Baron MA (Dye Beck Reel Operator) on 12/08/23 at 1525 Medication Order Taking? Sig Documenting Provider Last Dose Status amLODIPine (Norvasc) 10 MG tablet [id number] Take 1 tablet (10 mg) by mouth Daily Adelaida Carrion NP Active biotin 5 MG tablet [id number] Pt taking OTC ([employer]) Historical Provider, Active Calcium Citrate-Vitamin D (CITRACAL + D PO) [id number] Pt taking OTC ([employer]) Historical Provider, Active Cariprazine HCl (Vraylar) 4.5 MG capsule [id number] Take 4.5 mg by mouth Daily Active carvedilol (Coreg) 12.5 MG tablet [id number] Take 1 tablet (12.5 mg) by mouth in the morning and 1 tablet (12.5 mg) in the evening. Take with meals. Adelaida Carrion NP Active cetirizine (ZyrTEC) 10 MG tablet [id number] Take 1 tablet (10 mg) by mouth Daily Adelaida Carrion NP Active clonazePAM (KlonoPIN) 1 MG tablet [id number] Take 1 tablet (1 mg) by mouth 2 (two) times a day as needed for anxiety Do not start before October 16, 2023. Angle Brown NP 11/15/23 235 DULoxetine (Cymbalta) [address] capsule [id number] Take 60 mg by mouth in the morning and 60 mg before bedtime. Do not crush or chew.. Active fluconazole (Diflucan) 150 MG tablet [id number] 1 pill every 3 days for a total of 3 doses Adelaida Carrion NP Active fluticasone (Flonase) 50 MCG/ACT nasal spray [id number] Administer 2 sprays into each nostril Daily Adelaida Carrion NP 11/04/23 235 gabapentin (Neurontin) 300 MG capsule [id number] Take 1 capsule (300 mg) by mouth in the morning and 1 capsule (300 mg) before bedtime. Angle Brown NP Active losartan (Cozaar) 100 MG tablet [id number] Take 1 tablet (100 mg) by mouth Daily Adelaida Carrion NP Active Magnesium 400 MG capsule [id number] Pt taking OTC([employer]) Historical ProviderMD Active Melatonin 12 MG tablet [id number] Take 1 tablet by mouth at bedtime Active Multiple Vitamins-Minerals (BARIATRIC MULTIVITAMINS/IRON PO) [id number] Pt taking OTC ([employer]) Historical ProviderMD Active nystatin (Mycostatin) 702898 UNIT/GM powder [id number] Apply 1 application topically in the morning and 1 application before bedtime. Adelaida Carrion NP Active omeprazole (PriLOSEC) [address] capsule [id number] Take 1 capsule (20 mg) by mouth in the morning. Take before meals. Adelaida Aichholz, [employer] Active rOPINIRole (Requip) 4 MG tablet [id number] Take 1 tablet (4 mg) by mouth at bedtime Angle Brown NP Active spironolactone (Aldactone) 25 MG tablet [id number] Take 2 tablets (50 mg) by mouth Daily Adelaida Carrion NP Active tiZANidine (Zanaflex) 2 MG tablet [id number] Take 2 mg by mouth every 8 (eight) hours Adelaida Carrion NP Active traZODone (Desyrel) 150 MG tablet [id number] Take 150 mg by mouth at bedtime Active HPI AMS -Patient was admitted to [facility] from the [facility] on 08/24/2023 with acute respiratory failure [...] ankle and great toe bilaterally. Coordination Right: [id number] normal. Rapid alternating movement normal.Left: [id number] normal. Rapid alternating movement normal. Gait Casual gait is normal including stance, stride, and arm swing. Motor Examination RUE Strength deltoid, biceps, triceps, wrist extensors, wrist extensors, wrist flexor, pinsetter mechanic automatic strength 5/5. LUE Strength deltoid, biceps, triceps, wrist extensors, wrist extensors, wrist flexor, pinsetter mechanic automatic strength 5/5. RLE Strength illopsoas, quadriceps, tibialis [...] not all inclusive. Patient was admitted to [facility] from the [facility] on 08/24/2023 with acute respiratory failure [...] of the brain in July 2019 showed [id number]-ib-grrfugce white matter changes with the largest area [...] make further recommendations documented in this encounter [facility] 05-18-2023 History of Present illness [...] (BARIATRIC MULTIVITAMINS/IRON PO) Bariatric Multivitamins/Iron nystatin (Mycostatin) [id number] UNIT/GM powder 1 application , Topical, 2 [...] Anxiety 05/18/2023 Bipolar disorder with severe depression ([facility]) 05/18/2023 Brain vascular malformation Chronic pain disorder Colon polyps Constipation Degenerative cervical disc Degenerative lumbar disc Depression ([facility]) 05/18/2023 Diastolic dysfunction Dizziness 05/18/2023 Dysphagia Fibromyalgia Gastrocnemius equinus GERD (gastroesophageal reflux disease) Heart murmur Hematoma of right breast Hemiparesis, right ([facility]) Hemorrhoid int/external hemorrhoids Hiatal hernia Iron deficiency Left foot pain 03/25/2023 Lower extremity edema Mood disorder ([facility]) mixed mood disorder OSMANY (obstructive sleep apnea) Osteoporosis ([facility]) Overactive bladder Pre-diabetes Primary hypertension ([facility]) 03/25/2023 PTSD (post-traumatic stress disorder) ([facility]) Restless leg Right knee pain Right sided weakness S/P bariatric surgery Shingles Slurred speech Stroke ([facility]) 2018 Tenosynovitis, de Quervain Thoracic back [...] goal no changes in meds Morbid obesity ([facility]) OSMANY (obstructive sleep apnea) - Primary Compliant with PAP Chronic pain disorder GERD (gastroesophageal reflux disease) stable Overactive bladder Lower extremity edema Pre-diabetes Mood disorder ([facility]) Continue with Psych for management Tobacco dependence Yeast infection of the skin Encounter for annual wellness visit (AWV) in Medicare patient Reviewed Ht/Wt/BMI Recommend eye exam yearly Recommend dental exams twice a year Balance work/leisure activities Exercises is recommended most days of the week (appropriate as chronic conditions allow) Follow up yearly and prn documented in this encounter [facility] 03-23-2023 Procedure note [facility] 12-19-2022 Evaluation note Encounter Date Diagnosis Assessment Notes Dec, Skin candidiasis (ICD-10 - B37.2) Drink plenty fluids, get plenty of rest. Continue home medications as prescribed. Take the Diflucan as prescribed until gone. Follow-up with your family physician if no improvement in 2 to 3 days [employer] Other 08-17-2023 Discharge summary Author Eduardo barrett [facility] November 20, 2022 6:38am Note Date/Time November 20, 2022 6: 38am [facility] [address] [place] [address] Discharge Summary Signed Patient: Michelle Be MR#: [id number] : 1960 Acct:[id number] Age/Sex: 61 / F Adm Date: 3 Loc: 1S Room: [address] [place] [address]: Gaudencio Monk MD Copies to: [...] time.? She reports moving to [place] from [place] in 2011 and was then diagnosed with bipolar disorder at [facility] in [place], where she still follows with a therapist.? Shereports that she has been with 7 therapists in the last 9 years and is currentlycompleting EMDR with her current therapist. Past hospitalizations: Her most recent hospitalization was 5 years ago [facility] [place] for the same feeling she is [...] worked since 2010 due to her fibromyalgia.? [facility]. Relationships: Reports having [...] or stop treatment, but to call [email or web address], 911 or come to the nearest emergency [...] Tablet 1 tab PO QID Follow Up: [facility] [Outside] [facility] [Outside] ( optical manager: (Insert date/time here) Therapy:? (insert date/time here) Intake: (Insert date/time here) Please bring a copy of your photo ID, insurance card, and proof of household income.? Psychiatry: (Insert date/time here) Group: (Insert date/time here ) ) Adelaida Carrion [Primary Care Provider] - (Please contact for any medical needs) Documented By: Eduardo Monk MD [id number] Signed By: <Electronically signed by Eduardo Monk MD> 11/20/22 0638 [facility] Work Phone: 1(997) 432-768608-16-2023 Progress note Author Eduardo barrett [facility] November 19, 2022 6:25am Note Date/Time November 19, 2022 6: 25am [facility] [address] [place] [address] Psychiatry Progress Note Signed Patient: Michelle Be MR#: [id number] : 1960 Acct:[id number] Age/Sex: 61 / F Adm Date: 3 Loc: Room: [address] [place] [address] Type : ADM IN Attending Dr: Gaudencio [...] signed by Eduardo Monk MD> 11/19/22 0625 [facility] Work Phone: 1(703) 350-744608-15-2023 Progress note Author Eduardo barrett [facility] November 18, 2022 11:01am Note Date/Time November 18, 2022 10 :11am [facility] [address] [place] [address] Psychiatry Progress Note Signed Patient: Michelle Be MR#: [id number] : 1960 Acct:[id number] Age/Sex: 61 / F Adm Date: 3 Loc: Room: [address] [place] [address] Type : ADM IN Attending Dr: Gaudencio [...] the resident as noted below Currently Mrs. Eisenhower denies auditory hallucinations and states she slept [...] by requesting a schedule 2 referring to [place] for pain management specifically every 4-6 hours [...] signed by MD DA Rangel> 11/18/22 1011 [facility] Work Phone: 1(334) 367-235608-14-2023 History and physical note Author Eduardo barrett [facility] November 17, 2022 12:48pm Note Date/Time November 17, 2022 12 :48pm [facility] [address] [place] [address] Psychiatry H&P Signed Patient: Michelle Be MR#: [id number] : 1960 Acct:[id number] Age/Sex: 61 / F Adm Date: 3 Loc: Room: [address] [place] [address] Type: ADM IN Attending Dr: Gaudencio Monk [...] time. She reports moving to [place] from [place] in 2011 and was then diagnosed with bipolar disorder at [facility] in [place], where she still follows with a therapist. Shereports that she has been with 7 therapists in the last 9 years and is currentlycompleting EMDR with her current therapist. Past hospitalizations: Her most recent hospitalization was 5 years ago [facility] [place] for the same feeling she is [...] her , son and his girlfriend, and [facility]. Reports a situation in which they are attempting to seek custody of the grandson from the mother of the child. She reports not feeling safe at homewith herself but feels safe when her family is home. 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 [facility]. Relationships: Reports having [...] signed by Eduardo Monk MD> 11/17/22 1248 [facility] Work Phone: 1(580) 981-781103-23-2023 NoteCONSULTATION CONSULTATION DATE: 06/26/2022 To: Nurse Carrion [...] joint injection under fluoroscopic guidance.[facility] [id number] NotePROCEDURE: XR SHOULDER RT 2V or > [...] by: KINGSLEY CLEMENTS Date: 2022-05-09 09:21[facility]01-23-2023 NotePROCEDURE: XR WRIST LT MIN 3 V [...] Electronically authenticated by: KINGSLEY CLEMENTS Date: 2022-04-28 13:31[facility]12-29-2022 NoteCONSULTATION CONSULTATION DATE: 04/03/2022 HISTORY OF PRESENT [...] three months, unless otherwise indicated.[facility] [id number] NoteCONSULTATION CONSULTATION DATE: 01/02/2022 This is a [...] to [facility] in [place] for the compounded cream. She needs a [...] months' time unless otherwise indicated.[facility] [id number] NotePROCEDURE: XR ANKLE RT MIN 3 VIEWS, [...] by: KINGSLEY CLEMENTS Date: 2022-01-01 13:11[facility]09-28-2022 NotePROCEDURE: XR ANKLE RT MIN 3 VIEWS, [...] by: KINGSLEY CLEMENTS Date: 2022-01-01 13:11[facility]08-18-2022 NotePROCEDURE: XR FOOT RT MIN 3 VIEWS HISTORY: Pain in right foot , chronic COMPARISON: XR foot right 2020 FINDINGS: BONES:No fracture, dislocation, bone lesion. Small calcaneal degenerative enthesophytes. SOFT TISSUES:No visible soft tissue swelling. EFFUSION:None visible. OTHER: Negative. IMPRESSION: 1. No acute bone abnormality or significant degenerative joint disease. Electronically authenticated by: KINGSLEY CLEMENTS Date: 2021-11-21 16:13[facility]06-30-2022 NoteCONSULTATION CONSULTATION DATE: 10/03/2021 This is a [...] the plan of care. [facility] Signed and Approved by: ZELDA MCDANIEL . 10/10/2021 10:22:00[facility] note* Diagnosis Onset Date Resolution Status Allergies acute Bipolar 2 disorder acute Hypertension acute Morbid obesity with BMI of 45.0-49.9, adult acute OSMANY (obstructive sleep apnea) acute Restless legs syndrome acute [facility] Work Phone: Evaluation noteNo InformationNort mii Other Evaluation noteNo assessment information available [facility] Work Phone: Evaluation note* Diagnosis Encounter for annual wellness visit (AWV) in Medicare patient- Primary OSMANY (obstructive sleep apnea) Obstructive sleep apnea (adult) (pediatric) Chronic pain disorder Chronic pain syndrome Gastroesophageal reflux disease, unspecified whether esophagitis present Overactive bladder Hypertonicity of bladder Lower extremity edema Edema Pre-diabetes Other abnormal glucose Morbid obesity ([facility]) Morbid obesity Yeast infection of the skin Candidiasis of skin and nails Tobacco dependence Tobacco use disorder Mood disorder ([facility]) Unspecified episodic mood disorder Primary hypertension ([facility]) Unspecified essential hypertension Left hip pain Pain in joint, pelvic region and thigh Open wound of anterior abdominal wall, initial encounter documented in this encounter [facility]* Diagnosis Acute cystitis with hematuria- Primary documented in this encounter [facility] note* Diagnosis Left foot pain- Primary Pain in soft tissues of limb Primary hypertension ([facility]) Unspecified essential hypertension Class 3 severe obesity due to excess calories without serious comorbidity with body mass index (BMI) of 45.0 to 49.9 in adult ([facility]) Encounter for annual wellness visit (AWV) [...] (CMS/HCC) Unspecified episodic mood disorder Primary hypertension ([facility]) Unspecified essential hypertension Left hip pain Pain in joint, pelvic region and thigh Open wound of anterior abdominal wall, initial encounter Primary hypertension ([facility])- Primary Unspecified essential hypertension Yeast infection of the skin Candidiasis of skin and nails Morbid obesity ([facility]) Morbid obesity Primary hypertension ([facility])- Primary Unspecified essential hypertension Encounter for screening mammogram for malignant neoplasm of breast Gastroesophageal reflux disease, unspecified whether esophagitis present Acute gout of right foot, unspecified cause Osteoporosis, unspecified osteoporosis type, unspecified pathological fracture presence ([facility]) Morbid obesity ([facility]) Morbid obesity Pre-diabetes Other abnormal glucose Anemia, unspecified type Vitamin deficiency Unspecified vitamin deficiency Post-viral cough syndrome Primary hypertension ([facility])- Primary Unspecified essential hypertension Allergic rhinitis, unspecified Acute cough Morbid obesity ([facility]) Morbid obesity Former cigarette smoker Personal history of tobacco use, presenting hazards to health Toxic metabolic encephalopathy- Primary Hemiparesis, right ([facility]) Unspecified hemiplegia affecting unspecified side Acute respiratory failure with hypoxia ([facility]) Heart murmur Undiagnosed cardiac murmurs Primary hypertension ([facility]) Unspecified essential hypertension Morbid obesity ([facility]) Morbid obesity Bipolar disorder with severe depression ([facility]) Slurred speech Other speech disturbance Bilateral lower extremity edema- Primary Primary hypertension ([facility]) Unspecified essential hypertension Lower extremity edema Edema Essential (primary) hypertension ([facility]) Unspecified essential hypertension Gastro-esophageal reflux disease without esophagitis Allergic rhinitis, unspecified Bilateral lower extremity edema- Primary Morbid (severe) obesity due to excess calories ([facility]) Body mass index (BMI) 45.0-49.9, adult ([facility]) Pre-diabetes Other abnormal glucose Bilateral lower extremity edema- Primary Essential (primary) hypertension ([facility]) Unspecified essential hypertension Allergic rhinitis, unspecified OSMANY (obstructive sleep apnea) Obstructive sleep apnea (adult) (pediatric) Primary hypertension ([facility]) Unspecified essential hypertension Morbid obesity ([facility]) Morbid obesity Acute cystitis without hematuria- Primary Tobacco dependence Tobacco use disorder Needs flu shot Need for prophylactic vaccination and inoculation against influenza Morbid obesity ([facility]) Morbid obesity documented in this encounter [facility]* Diagnosis Left foot pain- Primary Pain in soft tissues of limb Primary hypertension ([facility]) Unspecified essential hypertension Class 3 severe obesity due to excess calories without serious comorbidity with body mass index (BMI) of 45.0 to 49.9 in adult ([facility]) Encounter for annual wellness visit (AWV) in Medicare patient- Primary OSMANY (obstructive sleep apnea) Obstructive sleep apnea (adult) (pediatric) Chronic pain disorder Chronic pain syndrome Gastroesophageal reflux disease, unspecified whether esophagitis present Overactive bladder Hypertonicity of bladder Lower extremity edema Edema Pre-diabetes Other abnormal glucose Morbid obesity ([facility]) Morbid obesity Yeast infection of the skin Candidiasis of skin and nails Tobacco dependence Tobacco use disorder Mood disorder ([facility]) Unspecified episodic mood disorder Primary hypertension ([facility]) Unspecified essential hypertension Left hip pain Pain in joint, pelvic region and thigh Open wound of anterior abdominal wall, initial encounter Primary hypertension ([facility])- Primary Unspecified essential hypertension Yeast infection of the skin Candidiasis of skin and nails Morbid obesity ([facility]) Morbid obesity Primary hypertension ([facility])- Primary Unspecified essential hypertension Encounter for screening mammogram for malignant neoplasm of breast Gastroesophageal reflux disease, unspecified whether esophagitis present Acute gout of right foot, unspecified cause Osteoporosis, unspecified osteoporosis type, unspecified pathological fracture presence ([facility]) Morbid obesity ([facility]) Morbid obesity Pre-diabetes Other abnormal glucose Anemia, unspecified type Vitamin deficiency Unspecified vitamin deficiency Post-viral cough syndrome Primary hypertension ([facility])- Primary Unspecified essential hypertension Allergic rhinitis, unspecified Acute cough Morbid obesity ([facility]) Morbid obesity Former cigarette smoker Personal history of tobacco use, presenting hazards to health Toxic metabolic encephalopathy- Primary Hemiparesis, right ([facility]) Unspecified hemiplegia affecting unspecified side Acute respiratory failure with hypoxia ([facility]) Heart murmur Undiagnosed cardiac murmurs Primary hypertension ([facility]) Unspecified essential hypertension Morbid obesity ([facility]) Morbid obesity Bipolar disorder with severe depression ([facility]) Slurred speech Other speech disturbance Bilateral lower extremity edema- Primary Primary hypertension ([facility]) Unspecified essential hypertension Lower extremity edema Edema Essential (primary) hypertension ([facility]) Unspecified essential hypertension Gastro-esophageal reflux disease without esophagitis Allergic rhinitis, unspecified Bilateral lower extremity edema- Primary Morbid (severe) obesity due to excess calories ([facility]) Body mass index (BMI) 45.0-49.9, adult ([facility]) Pre-diabetes Other abnormal glucose Bilateral lower extremity edema- Primary Essential (primary) hypertension ([facility]) Unspecified essential hypertension Allergic rhinitis, unspecified OSMANY (obstructive sleep apnea) Obstructive sleep apnea (adult) (pediatric) Primary hypertension ([facility]) Unspecified essential hypertension Morbid obesity ([facility]) Morbid obesity Acute cystitis without hematuria- Primary Tobacco dependence Tobacco use disorder Needs flu shot Need for prophylactic vaccination and inoculation against influenza Morbid obesity ([facility]) Morbid obesity Restless leg Restless legs syndrome (RLS) documented in this encounter [facility] HealthcareEvaluation note* Diagnosis Left foot pain- Primary Pain in soft tissues of limb Primary hypertension ([facility]) Unspecified essential hypertension Class 3 severe obesity due to excess calories without serious comorbidity with body mass index (BMI) of 45.0 to 49.9 in adult ([facility]) Encounter for annual wellness visit (AWV) in Medicare patient- Primary OSMANY (obstructive sleep apnea) Obstructive sleep apnea (adult) (pediatric) Chronic pain disorder Chronic pain syndrome Gastroesophageal reflux disease, unspecified whether esophagitis present Overactive bladder Hypertonicity of bladder Lower extremity edema Edema Pre-diabetes Other abnormal glucose Morbid obesity ([facility]) Morbid obesity Yeast infection of the skin Candidiasis of skin and nails Tobacco dependence Tobacco use disorder Mood disorder ([facility] Unspecified episodic mood disorder Primary hypertension ([facility]) Unspecified essential hypertension Left hip pain Pain in joint, pelvic region and thigh Open wound of anterior abdominal wall, initial encounter Primary hypertension ([facility])- Primary Unspecified essential hypertension Yeast infection of the skin Candidiasis of skin and nails Morbid obesity ([facility]) Morbid obesity Primary hypertension ([facility])- Primary Unspecified essential hypertension Encounter for screening mammogram for malignant neoplasm of breast Gastroesophageal reflux disease, unspecified whether esophagitis present Acute gout of right foot, unspecified cause Osteoporosis, unspecified osteoporosis type, unspecified pathological fracture presence ([facility]) Morbid obesity ([facility]) Morbid obesity Pre-diabetes Other abnormal glucose Anemia, unspecified type Vitamin deficiency Unspecified vitamin deficiency Post-viral cough syndrome Primary hypertension ([facility])- Primary Unspecified essential hypertension Allergic rhinitis, unspecified Acute cough Morbid obesity ([facility]) Morbid obesity Former cigarette smoker Personal history of tobacco use, presenting hazards to health Toxic metabolic encephalopathy- Primary Hemiparesis, right ([facility]) Unspecified hemiplegia affecting unspecified side Acute respiratory failure with hypoxia ([facility]) Heart murmur Undiagnosed cardiac murmurs Primary hypertension ([facility]) Unspecified essential hypertension Morbid obesity ([facility]) Morbid obesity Bipolar disorder with severe depression ([facility]) Slurred speech Other speech disturbance Bilateral lower extremity edema- Primary Primary hypertension ([facility]) Unspecified essential hypertension Lower extremity edema Edema Essential (primary) hypertension ([facility]) Unspecified essential hypertension Gastro-esophageal reflux disease without esophagitis Allergic rhinitis, unspecified Bilateral lower extremity edema- Primary Morbid (severe) obesity due to excess calories ([facility]) Body mass index (BMI) 45.0-49.9, adult ([facility]) Pre-diabetes Other abnormal glucose Bilateral lower extremity edema- Primary Essential (primary) hypertension ([facility]) Unspecified essential hypertension Allergic rhinitis, unspecified OSMANY (obstructive sleep apnea) Obstructive sleep apnea (adult) (pediatric) Primary hypertension ([facility]) Unspecified essential hypertension Morbid obesity ([facility]) Morbid obesity Acute cystitis without hematuria- Primary Tobacco dependence Tobacco use disorder Needs flu shot Need for prophylactic vaccination and inoculation against influenza Morbid obesity ([facility]) Morbid obesity Well woman exam with routine gynecological exam- Primary Routine gynecological examination Morbid obesity ([facility]) Morbid obesity documented in this encounter [facility] HealthcareEvaluation note* Diagnosis Left foot pain- Primary Pain in soft tissues of limb Primary hypertension ([facility]) Unspecified essential hypertension Class 3 severe obesity due to excess calories without serious comorbidity with body mass index (BMI) of 45.0 to 49.9 in adult ([facility]) Encounter for annual wellness visit (AWV) in Medicare patient- Primary OSMANY (obstructive sleep apnea) Obstructive sleep apnea (adult) (pediatric) Chronic pain disorder Chronic pain syndrome Gastroesophageal reflux disease, unspecified whether esophagitis present Overactive bladder Hypertonicity of bladder Lower extremity edema Edema Pre-diabetes Other abnormal glucose Morbid obesity ([facility]) Morbid obesity Yeast infection of the skin Candidiasis of skin and nails Tobacco dependence Tobacco use disorder Mood disorder ([facility]) Unspecified episodic mood disorder Primary hypertension ([facility]) Unspecified essential hypertension Left hip pain Pain in joint, pelvic region and thigh Open wound of anterior abdominal wall, initial encounter Primary hypertension ([facility])- Primary Unspecified essential hypertension Yeast infection of the skin Candidiasis of skin and nails Morbid obesity ([facility] Morbid obesity Primary hypertension ([facility])- Primary Unspecified essential hypertension Encounter for screening mammogram for malignant neoplasm of breast Gastroesophageal reflux disease, unspecified whether esophagitis present Acute gout of right foot, unspecified cause Osteoporosis, unspecified osteoporosis type, unspecified pathological fracture presence ([facility]) Morbid obesity ([facility]) Morbid obesity Pre-diabetes Other abnormal glucose Anemia, unspecified type Vitamin deficiency Unspecified vitamin deficiency Post-viral cough syndrome Primary hypertension ([facility])- Primary Unspecified essential hypertension Allergic rhinitis, unspecified Acute cough Morbid obesity ([facility]) Morbid obesity Former cigarette smoker Personal history of tobacco use, presenting hazards to health Toxic metabolic encephalopathy- Primary Hemiparesis, right ([facility]) Unspecified hemiplegia affecting unspecified side Acute respiratory failure with hypoxia ([facility]) Heart murmur Undiagnosed cardiac murmurs Primary hypertension ([facility] Unspecified essential hypertension Morbid obesity ([facility]) Morbid obesity Bipolar disorder with severe depression ([facility]) Slurred speech Other speech disturbance Bilateral lower extremity edema- Primary Primary hypertension ([facility]) Unspecified essential hypertension Lower extremity edema Edema Essential (primary) hypertension ([facility]) Unspecified essential hypertension Gastro-esophageal reflux disease without esophagitis Allergic rhinitis, unspecified Bilateral lower extremity edema- Primary Morbid (severe) obesity due to excess calories ([facility]) Body mass index (BMI) 45.0-49.9, adult ([facility]) Pre-diabetes Other abnormal glucose Bilateral lower extremity edema- Primary Essential (primary) hypertension ([facility]) Unspecified essential hypertension Allergic rhinitis, unspecified OSMANY (obstructive sleep apnea) Obstructive sleep apnea (adult) (pediatric) Primary hypertension ([facility]) Unspecified essential hypertension Morbid obesity ([facility]) Morbid obesity Acute cystitis without hematuria- Primary Tobacco dependence Tobacco use disorder Needs flu shot Need for prophylactic vaccination and inoculation against influenza Morbid obesity ([facility]) Morbid obesity Well woman exam with routine gynecological exam- Primary Routine gynecological examination Morbid obesity ([facility]) Morbid obesity Essential (primary) hypertension ([facility]) Unspecified essential hypertension Allergic rhinitis, unspecified documented in this encounter [facility] Diagnosis Left foot pain- Primary Pain in soft tissues of limb Primary hypertension ([facility]) Unspecified essential hypertension Class 3 severe obesity due to excess calories without serious comorbidity with body mass index (BMI) of 45.0 to 49.9 in adult ([facility]) Encounter for annual wellness visit (AWV) in Medicare patient- Primary OSMANY (obstructive sleep apnea) Obstructive sleep apnea (adult) (pediatric) Chronic pain disorder Chronic pain syndrome Gastroesophageal reflux disease, unspecified whether esophagitis present Overactive bladder Hypertonicity of bladder Lower extremity edema Edema Pre-diabetes Other abnormal glucose Morbid obesity ([facility]) Morbid obesity Yeast infection of the skin Candidiasis of skin and nails Tobacco dependence Tobacco use disorder Mood disorder ([facility] Unspecified episodic mood disorder Primary hypertension ([facility]) Unspecified essential hypertension Left hip pain Pain in joint, pelvic region and thigh Open wound of anterior abdominal wall, initial encounter Primary hypertension ([facility])- Primary Unspecified essential hypertension Yeast infection of the skin Candidiasis of skin and nails Morbid obesity ([facility]) Morbid obesity Primary hypertension ([facility])- Primary Unspecified essential hypertension Encounter for screening mammogram for malignant neoplasm of breast Gastroesophageal reflux disease, unspecified whether esophagitis present Acute gout of right foot, unspecified cause Osteoporosis, unspecified osteoporosis type, unspecified pathological fracture presence ([facility]) Morbid obesity ([facility]) Morbid obesity Pre-diabetes Other abnormal glucose Anemia, unspecified type Vitamin deficiency Unspecified vitamin deficiency Post-viral cough syndrome Primary hypertension ([facility])- Primary Unspecified essential hypertension Allergic rhinitis, unspecified Acute cough Morbid obesity ([facility]) Morbid obesity Former cigarette smoker Personal history of tobacco use, presenting hazards to health Toxic metabolic encephalopathy- Primary Hemiparesis, right ([facility]) Unspecified hemiplegia affecting unspecified side Acute respiratory failure with hypoxia ([facility]) Heart murmur Undiagnosed cardiac murmurs Primary hypertension ([facility]) Unspecified essential hypertension Morbid obesity ([facility]) Morbid obesity Bipolar disorder with severe depression ([facility]) Slurred speech Other speech disturbance Bilateral lower extremity edema- Primary Primary hypertension ([facility]) Unspecified essential hypertension Lower extremity edema Edema Essential (primary) hypertension ([facility]) Unspecified essential hypertension Gastro-esophageal reflux disease without esophagitis Allergic rhinitis, unspecified Bilateral lower extremity edema- Primary Morbid (severe) obesity due to excess calories ([facility]) Body mass index (BMI) 45.0-49.9, adult ([facility]) Pre-diabetes Other abnormal glucose Bilateral lower extremity edema- Primary Essential (primary) hypertension ([facility]) Unspecified essential hypertension Allergic rhinitis, unspecified OSMANY (obstructive sleep apnea) Obstructive sleep apnea (adult) (pediatric) Primary hypertension ([facility]) Unspecified essential hypertension Morbid obesity (CMS/HCC) Morbid obesity Acute cystitis without hematuria- Primary Tobacco dependence Tobacco use disorder Needs flu shot Need for prophylactic vaccination and inoculation against influenza Morbid obesity (CMS/HCC) Morbid obesity Well woman exam with routine gynecological exam- Primary Routine gynecological examination Morbid obesity (CMS/HCC) Morbid obesity Allergic rhinitis, unspecified documented in this encounter [facility]* Diagnosis Left foot pain- Primary Pain in soft tissues of limb Primary hypertension ([facility]) Unspecified essential hypertension Class 3 severe obesity due to excess calories without serious comorbidity with body mass index (BMI) of 45.0 to 49.9 in adult ([facility]) Encounter for annual wellness visit (AWV) in Medicare patient- Primary OSMANY (obstructive sleep apnea) Obstructive sleep apnea (adult) (pediatric) Chronic pain disorder Chronic pain syndrome Gastroesophageal reflux disease, unspecified whether esophagitis present Overactive bladder Hypertonicity of bladder Lower extremity edema Edema Pre-diabetes Other abnormal glucose Morbid obesity ([facility]) Morbid obesity Yeast infection of the skin Candidiasis of skin and nails Tobacco dependence Tobacco use disorder Mood disorder ([facility] Unspecified episodic mood disorder Primary hypertension ([facility]) Unspecified essential hypertension Left hip pain Pain in joint, pelvic region and thigh Open wound of anterior abdominal wall, initial encounter Primary hypertension ([facility])- Primary Unspecified essential hypertension Yeast infection of the skin Candidiasis of skin and nails Morbid obesity ([facility]) Morbid obesity Primary hypertension ([facility])- Primary Unspecified essential hypertension Encounter for screening mammogram for malignant neoplasm of breast Gastroesophageal reflux disease, unspecified whether esophagitis present Acute gout of right foot, unspecified cause Osteoporosis, unspecified osteoporosis type, unspecified pathological fracture presence ([facility]) Morbid obesity ([facility]) Morbid obesity Pre-diabetes Other abnormal glucose Anemia, unspecified type Vitamin deficiency Unspecified vitamin deficiency Post-viral cough syndrome Primary hypertension ([facility])- Primary Unspecified essential hypertension Allergic rhinitis, unspecified Acute cough Morbid obesity ([facility]) Morbid obesity Former cigarette smoker Personal history of tobacco use, presenting hazards to health Toxic metabolic encephalopathy- Primary Hemiparesis, right ([facility]) Unspecified hemiplegia affecting unspecified side Acute respiratory failure with hypoxia ([facility]) Heart murmur Undiagnosed cardiac murmurs Primary hypertension ([facility]) Unspecified essential hypertension Morbid obesity ([facility]) Morbid obesity Bipolar disorder with severe depression ([facility]) Slurred speech Other speech disturbance Bilateral lower extremity edema- Primary Primary hypertension ([facility]) Unspecified essential hypertension Lower extremity edema Edema Essential (primary) hypertension ([facility]) Unspecified essential hypertension Gastro-esophageal reflux disease without esophagitis Allergic rhinitis, unspecified Bilateral lower extremity edema- Primary Morbid (severe) obesity due to excess calories ([facility]) Body mass index (BMI) 45.0-49.9, adult ([facility]) Pre-diabetes Other abnormal glucose Bilateral lower extremity edema- Primary Essential (primary) hypertension ([facility]) Unspecified essential hypertension Allergic rhinitis, unspecified OSMANY (obstructive sleep apnea) Obstructive sleep apnea (adult) (pediatric) Primary hypertension ([facility]) Unspecified essential hypertension Morbid obesity ([facility]) Morbid obesity Acute cystitis without hematuria- Primary Tobacco dependence Tobacco use disorder Needs flu shot Need for prophylactic vaccination and inoculation against influenza Morbid obesity ([facility]) Morbid obesity Well woman exam with routine gynecological exam- Primary Routine gynecological examination Morbid obesity ([facility]) Morbid obesity Yeast infection of the skin Candidiasis of skin and nails documented in this encounter [facility] HealthcareEvaluation note* Diagnosis Left foot pain- Primary Pain in soft tissues of limb Primary hypertension ([facility]) Unspecified essential hypertension Class 3 severe obesity due to excess calories without serious comorbidity with body mass index (BMI) of 45.0 to 49.9 in adult ([facility]) Encounter for annual wellness visit (AWV) in Medicare patient- Primary OSMANY (obstructive sleep apnea) Obstructive sleep apnea (adult) (pediatric) Chronic pain disorder Chronic pain syndrome Gastroesophageal reflux disease, unspecified whether esophagitis present Overactive bladder Hypertonicity of bladder Lower extremity edema Edema Pre-diabetes Other abnormal glucose Morbid obesity ([facility]) Morbid obesity Yeast infection of the skin Candidiasis of skin and nails Tobacco dependence Tobacco use disorder Mood disorder ([facility] Unspecified episodic mood disorder Primary hypertension ([facility]) Unspecified essential hypertension Left hip pain Pain in joint, pelvic region and thigh Open wound of anterior abdominal wall, initial encounter Primary hypertension ([facility])- Primary Unspecified essential hypertension Yeast infection of the skin Candidiasis of skin and nails Morbid obesity ([facility]) Morbid obesity Primary hypertension ([facility])- Primary Unspecified essential hypertension Encounter for screening mammogram for malignant neoplasm of breast Gastroesophageal reflux disease, unspecified whether esophagitis present Acute gout of right foot, unspecified cause Osteoporosis, unspecified osteoporosis type, unspecified pathological fracture presence ([facility]) Morbid obesity ([facility]) Morbid obesity Pre-diabetes Other abnormal glucose Anemia, unspecified type Vitamin deficiency Unspecified vitamin deficiency Post-viral cough syndrome Primary hypertension ([facility])- Primary Unspecified essential hypertension Allergic rhinitis, unspecified Acute cough Morbid obesity ([facility]) Morbid obesity Former cigarette smoker Personal history of tobacco use, presenting hazards to health Toxic metabolic encephalopathy- Primary Hemiparesis, right ([facility]) Unspecified hemiplegia affecting unspecified side Acute respiratory failure with hypoxia ([facility]) Heart murmur Undiagnosed cardiac murmurs Primary hypertension ([facility]) Unspecified essential hypertension Morbid obesity ([facility]) Morbid obesity Bipolar disorder with severe depression ([facility]) Slurred speech Other speech disturbance Bilateral lower extremity edema- Primary Primary hypertension ([facility]) Unspecified essential hypertension Lower extremity edema Edema Essential (primary) hypertension ([facility]) Unspecified essential hypertension Gastro-esophageal reflux disease without esophagitis Allergic rhinitis, unspecified Bilateral lower extremity edema- Primary Morbid (severe) obesity due to excess calories ([facility]) Body mass index (BMI) 45.0-49.9, adult ([facility]) Pre-diabetes Other abnormal glucose Bilateral lower extremity edema- Primary Essential (primary) hypertension ([facility]) Unspecified essential hypertension Allergic rhinitis, unspecified OSMANY (obstructive sleep apnea) Obstructive sleep apnea (adult) (pediatric) Primary hypertension ([facility]) Unspecified essential hypertension Morbid obesity ([facility]) Morbid obesity Acute cystitis without hematuria- Primary Tobacco dependence Tobacco use disorder Needs flu shot Need for prophylactic vaccination and inoculation against influenza Morbid obesity ([facility]) Morbid obesity Well woman exam with routine gynecological exam- Primary Routine gynecological examination Morbid obesity ([facility]) Morbid obesity Metabolic encephalopathy- Primary OSMANY (obstructive sleep apnea) Obstructive sleep apnea (adult) (pediatric) Restless leg Restless legs syndrome (RLS) 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 ([facility]) Degeneration of intervertebral disc of lumbar region with discogenic back pain and lower extremity pain Memory change Memory loss documented in this encounter [facility]* Diagnosis Left foot pain- Primary Pain in soft tissues of limb Primary hypertension ([facility]) Unspecified essential hypertension Class 3 severe obesity due to excess calories without serious comorbidity with body mass index (BMI) of 45.0 to 49.9 in adult ([facility]) Encounter for annual wellness visit (AWV) in Medicare patient- Primary OSMANY (obstructive sleep apnea) Obstructive sleep apnea (adult) (pediatric) Chronic pain disorder Chronic pain syndrome Gastroesophageal reflux disease, unspecified whether esophagitis present Overactive bladder Hypertonicity of bladder Lower extremity edema Edema Pre-diabetes Other abnormal glucose Morbid obesity ([facility]) Morbid obesity Yeast infection of the skin Candidiasis of skin and nails Tobacco dependence Tobacco use disorder Mood disorder ([facility] Unspecified episodic mood disorder Primary hypertension ([facility]) Unspecified essential hypertension Left hip pain Pain in joint, pelvic region and thigh Open wound of anterior abdominal wall, initial encounter Primary hypertension ([facility])- Primary Unspecified essential hypertension Yeast infection of the skin Candidiasis of skin and nails Morbid obesity ([facility]) Morbid obesity Primary hypertension ([facility])- Primary Unspecified essential hypertension Encounter for screening mammogram for malignant neoplasm of breast Gastroesophageal reflux disease, unspecified whether esophagitis present Acute gout of right foot, unspecified cause Osteoporosis, unspecified osteoporosis type, unspecified pathological fracture presence ([facility]) Morbid obesity ([facility]) Morbid obesity Pre-diabetes Other abnormal glucose Anemia, unspecified type Vitamin deficiency Unspecified vitamin deficiency Post-viral cough syndrome Primary hypertension ([facility])- Primary Unspecified essential hypertension Allergic rhinitis, unspecified Acute cough Morbid obesity ([facility]) Morbid obesity Former cigarette smoker Personal history of tobacco use, presenting hazards to health Toxic metabolic encephalopathy- Primary Hemiparesis, right ([facility]) Unspecified hemiplegia affecting unspecified side Acute respiratory failure with hypoxia [place] Heart murmur Undiagnosed cardiac murmurs Primary hypertension ([facility]) Unspecified essential hypertension Morbid obesity ([facility]) Morbid obesity Bipolar disorder with severe depression ([facility]) Slurred speech Other speech disturbance Bilateral lower extremity edema- Primary Primary hypertension ([facility]) Unspecified essential hypertension Lower extremity edema Edema Essential (primary) hypertension ([facility]) Unspecified essential hypertension Gastro-esophageal reflux disease without esophagitis Allergic rhinitis, unspecified Bilateral lower extremity edema- Primary Morbid (severe) obesity due to excess calories ([facility]) Body mass index (BMI) 45.0-49.9, adult ([facility]) Pre-diabetes Other abnormal glucose Bilateral lower extremity edema- Primary Essential (primary) hypertension ([facility]) Unspecified essential hypertension Allergic rhinitis, unspecified OSMANY (obstructive sleep apnea) Obstructive sleep apnea (adult) (pediatric) Primary hypertension ([facility]) Unspecified essential hypertension Morbid obesity ([facility]) Morbid obesity Acute cystitis without hematuria- Primary Tobacco dependence Tobacco use disorder Needs flu shot Need for prophylactic vaccination and inoculation against influenza Morbid obesity (CMS/HCC) Morbid obesity Well woman exam with routine gynecological exam- Primary Routine gynecological examination Morbid obesity ([facility]) Morbid obesity Altered mental status, unspecified altered mental status type- Primary Restless leg Restless legs syndrome (RLS) 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[facility]) OSMANY (obstructive sleep apnea) Obstructive sleep apnea (adult) (pediatric) documented in this encounter [facility] HealthcareEvaluation note* Diagnosis Left foot pain- Primary Pain in soft tissues of limb Primary hypertension ([facility]) Unspecified essential hypertension Class 3 severe obesity due to excess calories without serious comorbidity with body mass index (BMI) of 45.0 to 49.9 in adult ([facility]) Encounter for annual wellness visit (AWV) in Medicare patient- Primary OSMANY (obstructive sleep apnea) Obstructive sleep apnea (adult) (pediatric) Chronic pain disorder Chronic pain syndrome Gastroesophageal reflux disease, unspecified whether esophagitis present Overactive bladder Hypertonicity of bladder Lower extremity edema Edema Pre-diabetes Other abnormal glucose Morbid obesity ([facility]) Morbid obesity Yeast infection of the skin Candidiasis of skin and nails Tobacco dependence Tobacco use disorder Mood disorder ([facility]) Unspecified episodic mood disorder Primary hypertension ([facility]) Unspecified essential hypertension Left hip pain Pain in joint, pelvic region and thigh Open wound of anterior abdominal wall, initial encounter Primary hypertension ([facility])- Primary Unspecified essential hypertension Yeast infection of the skin Candidiasis of skin and nails Morbid obesity ([facility]) Morbid obesity Primary hypertension ([facility])- Primary Unspecified essential hypertension Encounter for screening mammogram for malignant neoplasm of breast Gastroesophageal reflux disease, unspecified whether esophagitis present Acute gout of right foot, unspecified cause Osteoporosis, unspecified osteoporosis type, unspecified pathological fracture presence ([facility]) Morbid obesity ([facility]) Morbid obesity Pre-diabetes Other abnormal glucose Anemia, unspecified type Vitamin deficiency Unspecified vitamin deficiency Post-viral cough syndrome Primary hypertension ([facility])- Primary Unspecified essential hypertension Allergic rhinitis, unspecified Acute cough Morbid obesity ([facility]) Morbid obesity Former cigarette smoker Personal history of tobacco use, presenting hazards to health Toxic metabolic encephalopathy- Primary Hemiparesis, right ([facility]) Unspecified hemiplegia affecting unspecified side Acute respiratory failure with hypoxia ([facility]) Heart murmur Undiagnosed cardiac murmurs Primary hypertension ([facility]) Unspecified essential hypertension Morbid obesity ([facility]) Morbid obesity Bipolar disorder with severe depression ([facility]) Slurred speech Other speech disturbance Bilateral lower extremity edema- Primary Primary hypertension ([facility]) Unspecified essential hypertension Lower extremity edema Edema Essential (primary) hypertension ([facility]) Unspecified essential hypertension Gastro-esophageal reflux disease without esophagitis Allergic rhinitis, unspecified Bilateral lower extremity edema- Primary Morbid (severe) obesity due to excess calories ([facility]) Body mass index (BMI) 45.0-49.9, adult ([facility]) Pre-diabetes Other abnormal glucose Bilateral lower extremity edema- Primary Essential (primary) hypertension ([facility]) Unspecified essential hypertension Allergic rhinitis, unspecified OSMANY (obstructive sleep apnea) Obstructive sleep apnea (adult) (pediatric) Primary hypertension ([facility]) Unspecified essential hypertension Morbid obesity ([facility]) Morbid obesity Acute cystitis without hematuria- Primary Tobacco dependence Tobacco use disorder Needs flu shot Need for prophylactic vaccination and inoculation against influenza Morbid obesity ([facility]) Morbid obesity Well woman exam with routine gynecological exam- Primary Routine gynecological examination Morbid obesity ([facility]) Morbid obesity Altered mental status, unspecified altered mental status type- Primary Memory change Memory loss Concentration deficit 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 ([facility]) PTSD (post-traumatic stress disorder) ([facility]) Posttraumatic stress disorder Bipolar affective disorder, remission status unspecified ([facility]) Family history of dementia Family history of other neurological diseases documented in this encounter [facility] HealthcareEvaluation note* Diagnosis Encounter for annual wellness visit (AWV) in Medicare patient- Primary OSMANY (obstructive sleep apnea) Obstructive sleep apnea (adult) (pediatric) Chronic pain disorder Chronic pain syndrome Gastroesophageal reflux disease, unspecified whether esophagitis present Overactive bladder Hypertonicity of bladder Lower extremity edema Edema Pre-diabetes Other abnormal glucose Morbid obesity ([facility]) Morbid obesity Yeast infection of the skin Candidiasis of skin and nails Tobacco dependence Tobacco use disorder Mood disorder ([facility]) Unspecified episodic mood disorder Primary hypertension ([facility]) Unspecified essential hypertension Left hip pain Pain in joint, pelvic region and thigh Open wound of anterior abdominal wall, initial encounter Primary hypertension ([facility])- Primary Unspecified essential hypertension Yeast infection of the skin Candidiasis of skin and nails Morbid obesity ([facility]) Morbid obesity Primary hypertension ([facility])- Primary Unspecified essential hypertension Allergic rhinitis, unspecified Acute cough Morbid obesity ([facility]) Morbid obesity Former cigarette smoker Personal history of tobacco use, presenting hazards to health Toxic metabolic encephalopathy- Primary Hemiparesis, right ([facility]) Unspecified hemiplegia affecting unspecified side Acute respiratory failure with hypoxia ([facility]) Heart murmur Undiagnosed cardiac murmurs Primary hypertension ([facility]) Unspecified essential hypertension Morbid obesity ([facility]) Morbid obesity Bipolar disorder with severe depression ([facility]) Slurred speech Other speech disturbance Bilateral lower extremity edema- Primary Primary hypertension ([facility]) Unspecified essential hypertension Lower extremity edema Edema Essential (primary) hypertension ([facility]) Unspecified essential hypertension Gastro-esophageal reflux disease without esophagitis Allergic rhinitis, unspecified Bilateral lower extremity edema- Primary Morbid (severe) obesity due to excess calories ([facility]) Body mass index (BMI) 45.0-49.9, adult ([facility]) Pre-diabetes Other abnormal glucose Bilateral lower extremity edema- Primary Essential (primary) hypertension ([facility]) Unspecified essential hypertension Allergic rhinitis, unspecified OSMANY (obstructive sleep apnea) Obstructive sleep apnea (adult) (pediatric) Primary hypertension ([facility]) Unspecified essential hypertension Morbid obesity ([facility]) Morbid obesity Acute cystitis without hematuria- Primary Tobacco dependence Tobacco use disorder Needs flu shot Need for prophylactic vaccination and inoculation against influenza Morbid obesity ([facility]) Morbid obesity Well woman exam with routine gynecological exam- Primary Routine gynecological examination Morbid obesity ([facility]) Morbid obesity Restless leg Restless legs syndrome (RLS) Metabolic encephalopathy- Primary OSMANY (obstructive sleep apnea) Obstructive sleep apnea (adult) (pediatric) Morbid obesity ([facility]) Morbid obesity Bilateral lower extremity edema Tobacco dependence Tobacco use disorder Bipolar disorder with severe depression ([facility]) At risk for polypharmacy Anxiety Anxiety [...] Tobacco dependence Tobacco use disorder Mood disorder ([facility]) Unspecified episodic mood disorder Primary hypertension ([facility]) Unspecified essential hypertension Left hip pain Pain in joint, pelvic region and thigh Open wound of anterior abdominal wall, initial encounter Primary hypertension ([facility])- Primary Unspecified essential hypertension Yeast infection of the skin Candidiasis of skin and nails Morbid obesity ([facility]) Morbid obesity Primary hypertension ([facility])- Primary Unspecified essential hypertension Allergic rhinitis, unspecified Acute cough Morbid obesity ([facility]) Morbid obesity Former cigarette smoker Personal history of tobacco use, presenting hazards to health Toxic metabolic encephalopathy- Primary Hemiparesis, right ([facility]) Unspecified hemiplegia affecting unspecified side Acute respiratory failure with hypoxia ([facility]) Heart murmur Undiagnosed cardiac murmurs Primary hypertension ([facility]) Unspecified essential hypertension Morbid obesity ([facility]) Morbid obesity Bipolar disorder with severe depression ([facility]) Slurred speech Other speech disturbance Bilateral lower extremity edema- Primary Primary hypertension ([facility]) Unspecified essential hypertension Lower extremity edema Edema Essential (primary) hypertension ([facility]) Unspecified essential hypertension Gastro-esophageal reflux disease without esophagitis Allergic rhinitis, unspecified Bilateral lower extremity edema- Primary Morbid (severe) obesity due to excess calories ([facility]) Body mass index (BMI) 45.0-49.9, adult ([facility]) Pre-diabetes Other abnormal glucose Bilateral lower extremity edema- Primary Essential (primary) hypertension ([facility]) Unspecified essential hypertension Allergic rhinitis, unspecified OSMANY (obstructive sleep apnea) Obstructive sleep apnea (adult) (pediatric) Primary hypertension ([facility]) Unspecified essential hypertension Morbid obesity ([facility]) Morbid obesity Acute cystitis without hematuria- Primary Tobacco dependence Tobacco use disorder Needs flu shot Need for prophylactic vaccination and inoculation against influenza Morbid obesity (CMS/HCC) Morbid obesity Well woman exam with routine gynecological exam- Primary Routine gynecological examination Morbid obesity ([facility]) Morbid obesity Metabolic encephalopathy- Primary OSMANY (obstructive sleep apnea) Obstructive sleep apnea (adult) (pediatric) Morbid obesity ([facility]) Morbid obesity Bilateral lower extremity edema Tobacco dependence Tobacco use disorder Bipolar disorder with severe depression ([facility]) At risk for polypharmacy Anxiety Anxiety state, unspecified Primary hypertension ([facility]) Unspecified essential hypertension Right bundle branch block [...] Obstructive sleep apnea (adult) (pediatric) Primary hypertension ([facility]) Unspecified essential hypertension Morbid obesity ([facility]) Morbid obesity documented in this encounter [facility] HealthcareEvaluation note* Diagnosis Lower extremity edema Edema documented in this encounter [facility] HealthcareEvaluation note* Diagnosis Encounter for annual [...] Tobacco dependence Tobacco use disorder Mood disorder ([facility]) Unspecified episodic mood disorder Primary hypertension ([facility]) Unspecified essential hypertension Left hip pain [...] health Toxic metabolic encephalopathy- Primary Hemiparesis, right ([facility]) Unspecified hemiplegia affecting unspecified side Acute respiratory failure with hypoxia ([facility]) Heart murmur Undiagnosed cardiac murmurs Primary hypertension ([facility] Unspecified essential hypertension Morbid obesity ([facility] Morbid obesity Bipolar disorder with severe depression ([facility]) Slurred speech Other speech disturbance Bilateral lower extremity edema- Primary Primary hypertension ([facility]) Unspecified essential hypertension Lower extremity edema Edema Essential (primary) hypertension ([facility]) Unspecified essential hypertension Gastro-esophageal reflux disease without esophagitis Allergic rhinitis, unspecified Bilateral lower extremity edema- Primary Morbid (severe) obesity due to excess calories ([facility]) Body mass index (BMI) 45.0-49.9, adult ([facility]) Pre-diabetes Other abnormal glucose Bilateral lower extremity edema- Primary Essential (primary) hypertension ([facility]) Unspecified essential hypertension Allergic rhinitis, unspecified OSMANY (obstructive sleep apnea) Obstructive sleep apnea (adult) (pediatric) Primary hypertension ([facility]) Unspecified essential hypertension Morbid obesity ([facility]) Morbid obesity Acute cystitis without hematuria- Primary Tobacco dependence Tobacco use disorder Needs flu shot Need for prophylactic vaccination and inoculation against influenza Morbid obesity ([facility]) Morbid obesity Well woman exam with routine gynecological exam- Primary Routine gynecological examination Morbid obesity ([facility]) Morbid obesity Metabolic encephalopathy- Primary OSMANY (obstructive sleep apnea) Obstructive sleep apnea (adult) (pediatric) Morbid obesity ([facility]) Morbid obesity Bilateral lower extremity edema Tobacco dependence Tobacco use disorder Bipolar disorder with severe depression ([facility]) At risk for polypharmacy Anxiety Anxiety state, unspecified Primary hypertension ([facility]) Unspecified essential hypertension Right bundle branch block (RBBB) determined by electrocardiography Metabolic encephalopathy- Primary Memory change Memory loss Altered mental status, unspecified altered mental status type Concentration deficit PTSD (post-traumatic stress disorder) ([facility]) Posttraumatic stress disorder Bipolar affective disorder, remission status unspecified ([facility]) Family history of dementia Family history of other neurological diseases 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[facility]) OSMANY (obstructive sleep apnea) Obstructive sleep apnea (adult) (pediatric) documented in this encounter [facility] HealthcareEvaluation note* Diagnosis Encounter for annual wellness visit (AWV) in Medicare patient- Primary OSMANY (obstructive sleep apnea) Obstructive sleep apnea (adult) (pediatric) Chronic pain disorder Chronic pain syndrome Gastroesophageal reflux disease, unspecified whether esophagitis present Overactive bladder Hypertonicity of bladder Lower extremity edema Edema Pre-diabetes Other abnormal glucose Morbid obesity ([facility]) Morbid obesity Yeast infection of the skin Candidiasis of skin and nails Tobacco dependence Tobacco use disorder Mood disorder ([facility]) Unspecified episodic mood disorder Primary hypertension ([facility]) Unspecified essential hypertension Left hip pain Pain in joint, pelvic region and thigh Open wound of anterior abdominal wall, initial encounter Primary hypertension ([facility])- Primary Unspecified essential hypertension Yeast infection of the skin Candidiasis of skin and nails Morbid obesity ([facility]) Morbid obesity Primary hypertension ([facility])- Primary Unspecified essential hypertension Allergic rhinitis, unspecified Acute cough Morbid obesity ([facility]) Morbid obesity Former cigarette smoker Personal history of tobacco use, presenting hazards to health Toxic metabolic encephalopathy- Primary Hemiparesis, right ([facility]) Unspecified hemiplegia affecting unspecified side Acute respiratory failure with hypoxia ([facility]) Heart murmur Undiagnosed cardiac murmurs Primary hypertension ([facility]) Unspecified essential hypertension Morbid obesity ([facility]) Morbid obesity Bipolar disorder with severe depression ([facility]) Slurred speech Other speech disturbance Bilateral lower extremity edema- Primary Primary hypertension ([facility]) Unspecified essential hypertension Lower extremity edema Edema Essential (primary) hypertension ([facility]) Unspecified essential hypertension Gastro-esophageal reflux disease without esophagitis Allergic rhinitis, unspecified Bilateral lower extremity edema- Primary Morbid (severe) obesity due to excess calories ([facility]) Body mass index (BMI) 45.0-49.9, adult ([facility]) Pre-diabetes Other abnormal glucose Bilateral lower extremity edema- Primary Essential (primary) hypertension ([facility]) Unspecified essential hypertension Allergic rhinitis, unspecified OSMANY (obstructive sleep apnea) Obstructive sleep apnea (adult) (pediatric) Primary hypertension ([facility]) Unspecified essential hypertension Morbid obesity ([facility]) Morbid obesity Acute cystitis without hematuria- Primary Tobacco dependence Tobacco use disorder Needs flu shot Need for prophylactic vaccination and inoculation against influenza Morbid obesity ([facility]) Morbid obesity Well woman exam with routine gynecological exam- Primary Routine gynecological examination Morbid obesity ([facility]) Morbid obesity Metabolic encephalopathy- Primary OSMANY (obstructive sleep apnea) Obstructive sleep apnea (adult) (pediatric) Morbid obesity ([facility]) Morbid obesity Bilateral lower extremity edema Tobacco dependence Tobacco use disorder Bipolar disorder with severe depression ([facility]) At risk for polypharmacy Anxiety Anxiety state, unspecified Primary hypertension ([facility]) Unspecified essential hypertension Right bundle branch [...] Edema Pre-diabetes Other abnormal glucose Morbid obesity ([facility]) Morbid obesity Yeast infection of the skin Candidiasis of skin and nails Tobacco dependence Tobacco use disorder Mood disorder (CMS/HCC) Unspecified episodic mood disorder Primary hypertension ([facility]) Unspecified essential hypertension Left hip pain Pain in joint, pelvic region and thigh Open wound of anterior abdominal wall, initial encounter Primary hypertension (CMS/HCC)- Primary Unspecified essential hypertension Yeast infection of the skin Candidiasis of skin and nails Morbid obesity (CMS/HCC) Morbid obesity Primary hypertension ([facility])- Primary Unspecified essential hypertension Allergic rhinitis, unspecified Acute cough Morbid obesity ([facility]) Morbid obesity Former cigarette smoker Personal history of tobacco use, presenting hazards to health Toxic metabolic encephalopathy- Primary Hemiparesis, right ([facility]) Unspecified hemiplegia affecting unspecified side Acute respiratory failure with hypoxia ([facility]) Heart murmur Undiagnosed cardiac murmurs Primary hypertension ([facility] Unspecified essential hypertension Morbid obesity ([facility]) Morbid obesity Bipolar disorder with severe depression ([facility]) Slurred speech Other speech disturbance Bilateral lower extremity edema- Primary Primary hypertension ([facility]/HCC) Unspecified essential hypertension Lower extremity edema Edema Essential (primary) hypertension ([facility]) Unspecified essential hypertension Gastro-esophageal reflux disease without esophagitis Allergic rhinitis, unspecified Bilateral lower extremity edema- Primary Morbid (severe) obesity due to excess calories ([facility]) Body mass index (BMI) 45.0-49.9, adult ([facility]) Pre-diabetes Other abnormal glucose Bilateral lower extremity edema- Primary Essential (primary) hypertension ([facility]/HCC) Unspecified essential hypertension Allergic rhinitis, unspecified OSMANY (obstructive sleep apnea) Obstructive sleep apnea (adult) (pediatric) Primary hypertension ([facility]/HCC) Unspecified essential hypertension Morbid obesity ([facility]/HCC) Morbid obesity Acute cystitis without hematuria- Primary [...] use disorder Bipolar disorder with severe depression ([facility]) At risk for polypharmacy Anxiety Anxiety state, unspecified Primary hypertension ([facility]) Unspecified essential hypertension Right bundle branch block (RBBB) determined by electrocardiography Primary hypertension ([facility]/HCC)- Primary Unspecified essential hypertension Chronic kidney disease, stage 3a (HCC) ([facility]) Morbid (severe) obesity due to excess calories ([facility]) Body mass index (BMI) 45.0-49.9, adult ([facility]) OSMANY (obstructive sleep apnea) Obstructive sleep apnea (adult) (pediatric) Hemiparesis, right ([facility]) Unspecified hemiplegia affecting unspecified side Gastroesophageal reflux disease, unspecified whether esophagitis present Metabolic encephalopathy Essential (primary) hypertension ([facility]) Unspecified essential hypertension Allergic rhinitis, unspecified Gastro-esophageal reflux disease without esophagitis Bilateral lower extremity edema documented in this encounter [facility] HealthcareEvaluation note* Diagnosis Encounter for annual wellness visit (AWV) in Medicare patient- Primary OSMANY (obstructive sleep apnea) Obstructive sleep apnea (adult) (pediatric) Chronic pain disorder Chronic pain syndrome Gastroesophageal reflux disease, unspecified whether esophagitis present Overactive bladder Hypertonicity of bladder Lower extremity edema Edema Pre-diabetes Other abnormal glucose Morbid obesity ([facility]) Morbid obesity Yeast infection of the skin Candidiasis of skin and nails Tobacco dependence Tobacco use disorder Mood disorder ([facility]) Unspecified episodic mood disorder Primary hypertension ([facility]) Unspecified essential hypertension Left hip pain Pain in joint, pelvic region and thigh Open wound of anterior abdominal wall, initial encounter Primary hypertension ([facility])- Primary Unspecified essential hypertension Yeast infection of the skin Candidiasis of skin and nails Morbid obesity ([facility]/HCC) Morbid obesity Primary hypertension ([facility]/HCC)- Primary Unspecified essential hypertension Allergic rhinitis, unspecified Acute cough Morbid obesity ([facility]) Morbid obesity Former cigarette smoker Personal history of tobacco use, presenting hazards to health Toxic metabolic encephalopathy- Primary Hemiparesis, right ([facility]) Unspecified hemiplegia affecting unspecified side Acute respiratory failure with hypoxia ([facility]) Heart murmur Undiagnosed cardiac murmurs Primary hypertension ([facility]) Unspecified essential hypertension Morbid obesity ([facility]) Morbid obesity Bipolar disorder with severe depression ([facility]) Slurred speech Other speech disturbance Bilateral lower extremity edema- Primary Primary hypertension ([facility]/HCC) Unspecified essential hypertension Lower extremity edema Edema Essential (primary) hypertension ([facility]/HCC) Unspecified essential hypertension Gastro-esophageal reflux disease without esophagitis Allergic rhinitis, unspecified Bilateral lower extremity edema- Primary Morbid (severe) obesity due to excess calories ([facility]) Body mass index (BMI) 45.0-49.9, adult ([facility]) Pre-diabetes Other abnormal glucose Bilateral lower extremity edema- Primary Essential (primary) hypertension ([facility]/HCC) Unspecified essential hypertension Allergic rhinitis, unspecified OSMANY (obstructive sleep apnea) Obstructive sleep apnea (adult) (pediatric) Primary hypertension ([facility]/HCC) Unspecified essential hypertension Morbid obesity ([facility]) Morbid obesity Acute cystitis without hematuria- Primary Tobacco dependence Tobacco use disorder Needs flu shot Need for prophylactic vaccination and inoculation against influenza Morbid obesity ([facility]/HCC) Morbid obesity Well woman exam with routine gynecological exam- Primary Routine gynecological examination Morbid obesity ([facility]/HCC) Morbid obesity Metabolic encephalopathy- Primary OSMANY (obstructive sleep apnea) Obstructive sleep apnea (adult) (pediatric) Morbid obesity ([facility]) Morbid obesity Bilateral lower extremity edema Tobacco dependence Tobacco use disorder Bipolar disorder with severe depression ([facility]) At risk for polypharmacy Anxiety Anxiety state, unspecified Primary hypertension ([facility]) Unspecified essential hypertension Right bundle branch block (RBBB) determined by electrocardiography Primary hypertension ([facility])- Primary Unspecified essential hypertension Chronic kidney disease, stage 3a (HCC) ([facility]) Morbid (severe) obesity due to excess calories ([facility]) Body mass index (BMI) 45.0-49.9, adult ([facility]) OSMANY (obstructive sleep apnea) Obstructive sleep apnea (adult) (pediatric) Hemiparesis, right ([facility]) Unspecified hemiplegia affecting unspecified side Gastroesophageal reflux disease, unspecified whether esophagitis present Metabolic encephalopathy Essential (primary) hypertension ([facility]) Unspecified essential hypertension Allergic rhinitis, unspecified Gastro-esophageal reflux disease without esophagitis Bilateral lower extremity edema 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 ([facility])- Primary OSMANY (obstructive sleep apnea) Obstructive [...] (CMS/HCC) Unspecified episodic mood disorder Primary hypertension ([facility]) Unspecified essential hypertension Left hip pain Pain in joint, pelvic region and thigh Open wound of anterior abdominal wall, initial encounter Primary hypertension (CMS/HCC)- Primary Unspecified essential hypertension Yeast infection of the skin Candidiasis of skin and nails Morbid obesity ([facility]/HCC) Morbid obesity Primary hypertension ([facility])- Primary Unspecified essential hypertension Allergic rhinitis, unspecified Acute cough Morbid obesity ([facility]) Morbid obesity Former cigarette smoker Personal history of tobacco use, presenting hazards to health Toxic metabolic encephalopathy- Primary Hemiparesis, right ([facility]) Unspecified hemiplegia affecting unspecified side Acute respiratory failure with hypoxia ([facility]) Heart murmur Undiagnosed cardiac murmurs Primary hypertension ([facility]) Unspecified essential hypertension Morbid obesity ([facility]) Morbid obesity Bipolar disorder with severe depression ([facility]) Slurred speech Other speech disturbance Bilateral lower extremity edema- Primary Primary hypertension ([facility]/HCC) Unspecified essential hypertension Lower extremity edema Edema Essential (primary) hypertension ([facility]) Unspecified essential hypertension Gastro-esophageal reflux disease without esophagitis Allergic rhinitis, unspecified Bilateral lower extremity edema- Primary Morbid (severe) obesity due to excess calories ([facility]) Body mass index (BMI) 45.0-49.9, adult ([facility]) Pre-diabetes Other abnormal glucose Bilateral lower extremity edema- Primary Essential (primary) hypertension ([facility]) Unspecified essential hypertension Allergic rhinitis, unspecified OSMANY (obstructive sleep apnea) Obstructive sleep apnea (adult) (pediatric) Primary hypertension ([facility]/HCC) Unspecified essential hypertension Morbid obesity ([facility]) Morbid obesity Acute cystitis without hematuria- [...] use disorder Bipolar disorder with severe depression ([facility]) At risk for polypharmacy Anxiety Anxiety state, unspecified Primary hypertension (CMS/HCC) Unspecified essential hypertension Right bundle branch block (RBBB) determined by electrocardiography Primary hypertension (CMS/HCC)- Primary Unspecified essential hypertension Chronic kidney disease, stage 3a (HCC) ([facility]) Morbid (severe) obesity due to excess calories ([facility]) Body mass index (BMI) 45.0-49.9, adult ([facility]) OSMANY (obstructive sleep apnea) Obstructive sleep apnea (adult) (pediatric) Hemiparesis, right ([facility]/HCC) Unspecified hemiplegia affecting unspecified side Gastroesophageal reflux disease, unspecified whether esophagitis present Metabolic encephalopathy Essential (primary) hypertension ([facility]) Unspecified essential hypertension Allergic rhinitis, unspecified Gastro-esophageal reflux disease without esophagitis Bilateral lower extremity edema Restless leg Restless legs syndrome (RLS) documented in this encounter [facility] HealthcareEvaluation note* Diagnosis Encounter for annual [...] (CMS/HCC) Unspecified episodic mood disorder Primary hypertension ([facility]) Unspecified essential hypertension Left hip pain [...] health Toxic metabolic encephalopathy- Primary Hemiparesis, right ([facility]) Unspecified hemiplegia affecting unspecified side Acute respiratory failure with hypoxia ([facility]) Heart murmur Undiagnosed cardiac murmurs Primary hypertension (CMS/HCC) Unspecified essential hypertension Morbid obesity ([facility]/HCC) Morbid obesity Bipolar disorder with severe depression ([facility]) Slurred speech Other speech disturbance Bilateral lower extremity edema- Primary Primary hypertension ([facility]) Unspecified essential hypertension Lower extremity edema Edema Essential (primary) hypertension ([facility]/HCC) Unspecified essential hypertension Gastro-esophageal reflux disease without esophagitis Allergic rhinitis, unspecified Bilateral lower extremity edema- Primary Morbid (severe) obesity due to excess calories ([facility]) Body mass index (BMI) 45.0-49.9, adult ([facility]) Pre-diabetes Other abnormal glucose Bilateral lower extremity edema- Primary Essential (primary) hypertension ([facility]) Unspecified essential hypertension Allergic rhinitis, unspecified OSMANY (obstructive sleep apnea) Obstructive sleep apnea (adult) (pediatric) Primary hypertension ([facility]) Unspecified essential hypertension Morbid obesity ([facility]) Morbid obesity Acute cystitis without hematuria- Primary Tobacco dependence Tobacco use disorder Needs flu shot Need for prophylactic vaccination and inoculation against influenza Morbid obesity ([facility]) Morbid obesity Well woman exam with routine gynecological exam- Primary Routine gynecological examination Morbid obesity ([facility]) Morbid obesity Metabolic encephalopathy- Primary OSMANY (obstructive sleep apnea) Obstructive sleep apnea (adult) (pediatric) Morbid obesity ([facility]) Morbid obesity Bilateral lower extremity edema Tobacco dependence Tobacco use disorder Bipolar disorder with severe depression ([facility]) At risk for polypharmacy Anxiety Anxiety state, unspecified Primary hypertension ([facility]) Unspecified essential hypertension Right bundle branch block (RBBB) determined by electrocardiography Primary hypertension ([facility])- Primary Unspecified essential hypertension Chronic kidney disease, stage 3a (HCC) ([facility]) Morbid (severe) obesity due to excess calories ([facility]) Body mass index (BMI) 45.0-49.9, adult ([facility]) OSMANY (obstructive sleep apnea) Obstructive sleep apnea (adult) (pediatric) Hemiparesis, right ([facility]) Unspecified hemiplegia affecting unspecified side Gastroesophageal reflux disease, unspecified whether esophagitis present Metabolic encephalopathy Essential (primary) hypertension ([facility]) Unspecified essential hypertension Allergic rhinitis, unspecified Gastro-esophageal reflux disease without esophagitis Bilateral lower extremity edema URI, acute- Primary Acute upper respiratory infections of unspecified site documented in this encounter [facility] HealthcareEvaluation note* Diagnosis Encounter for annual wellness visit (AWV) in Medicare patient- Primary OSMANY (obstructive sleep apnea) Obstructive sleep apnea (adult) (pediatric) Chronic pain disorder Chronic pain syndrome Gastroesophageal reflux disease, unspecified whether esophagitis present Overactive bladder Hypertonicity of bladder Lower extremity edema Edema Pre-diabetes Other abnormal glucose Morbid obesity ([facility]/HCC) Morbid obesity Yeast infection of the skin Candidiasis of skin and nails Tobacco dependence Tobacco use disorder Mood disorder ([facility]) Unspecified episodic mood disorder Primary hypertension ([facility]) Unspecified essential hypertension Left hip pain Pain in joint, pelvic region and thigh Open wound of anterior abdominal wall, initial encounter Primary hypertension ([facility])- Primary Unspecified essential hypertension Yeast infection of the skin Candidiasis of skin and nails Morbid obesity ([facility]) Morbid obesity Primary hypertension ([facility])- Primary Unspecified essential hypertension Allergic rhinitis, unspecified Acute cough Morbid obesity ([facility]) Morbid obesity Former cigarette smoker Personal history of tobacco use, presenting hazards to health Toxic metabolic encephalopathy- Primary Hemiparesis, right ([facility]) Unspecified hemiplegia affecting unspecified side Acute respiratory failure with hypoxia ([facility]) Heart murmur Undiagnosed cardiac murmurs Primary hypertension ([facility]) Unspecified essential hypertension Morbid obesity ([facility]) Morbid obesity Bipolar disorder with severe depression ([facility]) Slurred speech Other speech disturbance Bilateral lower extremity edema- Primary Primary hypertension ([facility]) Unspecified essential hypertension Lower extremity edema Edema Essential (primary) hypertension ([facility]) Unspecified essential hypertension Gastro-esophageal reflux disease without esophagitis Allergic rhinitis, unspecified Bilateral lower extremity edema- Primary Morbid (severe) obesity due to excess calories ([facility]) Body mass index (BMI) 45.0-49.9, adult ([facility]) Pre-diabetes Other abnormal glucose Bilateral lower extremity edema- Primary Essential (primary) hypertension ([facility]) Unspecified essential hypertension Allergic rhinitis, unspecified OSMANY (obstructive sleep apnea) Obstructive sleep apnea (adult) (pediatric) Primary hypertension ([facility]) Unspecified essential hypertension Morbid obesity ([facility]) Morbid obesity Acute cystitis without hematuria- Primary Tobacco dependence Tobacco use disorder Needs flu shot Need for prophylactic vaccination and inoculation against influenza Morbid obesity ([facility]/HCC) Morbid obesity Well woman exam with routine gynecological exam- Primary Routine gynecological examination Morbid obesity ([facility]/HCC) Morbid obesity Metabolic encephalopathy- Primary OSMANY (obstructive sleep apnea) Obstructive sleep apnea (adult) (pediatric) Morbid obesity ([facility]) Morbid obesity Bilateral lower extremity edema Tobacco dependence Tobacco use disorder Bipolar disorder with severe depression ([facility]) At risk for polypharmacy Anxiety Anxiety state, unspecified Primary hypertension ([facility]) Unspecified essential hypertension Right bundle branch block (RBBB) determined by electrocardiography Primary hypertension ([facility])- Primary Unspecified essential hypertension Chronic kidney disease, stage 3a (HCC) ([facility]) Morbid (severe) obesity due to excess calories ([facility]) Body mass index (BMI) 45.0-49.9, adult ([facility]) OSMANY (obstructive sleep apnea) Obstructive sleep apnea (adult) (pediatric) Hemiparesis, right ([facility]) Unspecified hemiplegia affecting unspecified side Gastroesophageal reflux disease, unspecified whether esophagitis present Metabolic encephalopathy Essential (primary) hypertension ([facility]) Unspecified essential hypertension Allergic rhinitis, unspecified Gastro-esophageal reflux disease without esophagitis Bilateral lower extremity edema OSMANY (obstructive sleep apnea)- Primary Obstructive sleep apnea (adult) (pediatric) Restless leg Restless legs syndrome (RLS) 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[facility]) Concentration deficit documented in this encounter [facility] HealthcareEvaluation note* Diagnosis Encounter for annual wellness visit (AWV) in Medicare patient- Primary OSMANY (obstructive sleep apnea) Obstructive sleep apnea (adult) (pediatric) Chronic pain disorder Chronic pain syndrome Gastroesophageal reflux disease, unspecified whether esophagitis present Overactive bladder Hypertonicity of bladder Lower extremity edema Edema Pre-diabetes Other abnormal glucose Morbid obesity ([facility]) Morbid obesity Yeast infection of the skin Candidiasis of skin and nails Tobacco dependence Tobacco use disorder Mood disorder ([facility]) Unspecified episodic mood disorder Primary hypertension ([facility]) Unspecified essential hypertension Left hip pain Pain in joint, pelvic region and thigh Open wound of anterior abdominal wall, initial encounter Primary hypertension ([facility]/HCC)- Primary Unspecified essential hypertension Yeast infection of the skin Candidiasis of skin and nails Morbid obesity ([facility]) Morbid obesity Primary hypertension ([facility])- Primary Unspecified essential hypertension Allergic rhinitis, unspecified Acute cough Morbid obesity ([facility]) Morbid obesity Former cigarette smoker Personal history of tobacco use, presenting hazards to health Toxic metabolic encephalopathy- Primary Hemiparesis, right ([facility]) Unspecified hemiplegia affecting unspecified side Acute respiratory failure with hypoxia ([facility]) Heart murmur Undiagnosed cardiac murmurs Primary hypertension ([facility]) Unspecified essential hypertension Morbid obesity ([facility]) Morbid obesity Bipolar disorder with severe depression ([facility]) Slurred speech Other speech disturbance Bilateral lower extremity edema- Primary Primary hypertension ([facility]/HCC) Unspecified essential hypertension Lower extremity edema Edema Essential (primary) hypertension ([facility]/HCC) Unspecified essential hypertension Gastro-esophageal reflux disease without esophagitis Allergic rhinitis, unspecified Bilateral lower extremity edema- Primary Morbid (severe) obesity due to excess calories ([facility]) Body mass index (BMI) 45.0-49.9, adult ([facility]) Pre-diabetes Other abnormal glucose Bilateral lower extremity edema- Primary Essential (primary) hypertension ([facility]/HCC) Unspecified essential hypertension Allergic rhinitis, unspecified OSMANY (obstructive sleep apnea) Obstructive sleep apnea (adult) (pediatric) Primary hypertension ([facility]/HCC) Unspecified essential hypertension Morbid obesity ([facility]) Morbid obesity Acute cystitis without hematuria- Primary Tobacco dependence Tobacco use disorder Needs flu shot Need for prophylactic vaccination and inoculation against influenza Morbid obesity ([facility]/HCC) Morbid obesity Well woman exam with routine gynecological exam- Primary Routine gynecological examination Morbid obesity ([facility]) Morbid obesity Metabolic encephalopathy- Primary OSMANY (obstructive sleep apnea) Obstructive sleep apnea (adult) (pediatric) Morbid obesity ([facility]) Morbid obesity Bilateral lower extremity edema Tobacco dependence Tobacco use disorder Bipolar disorder with severe depression ([facility]) At risk for polypharmacy Anxiety Anxiety state, unspecified Primary hypertension ([facility]) Unspecified essential hypertension Right bundle branch block (RBBB) determined by electrocardiography Primary hypertension ([facility])- Primary Unspecified essential hypertension Chronic kidney disease, stage 3a (HCC) ([facility]) Morbid (severe) obesity due to excess calories ([facility]) Body mass index (BMI) 45.0-49.9, adult ([facility]) OSMANY (obstructive sleep apnea) Obstructive sleep apnea (adult) (pediatric) Hemiparesis, right ([facility]) Unspecified hemiplegia affecting unspecified side Gastroesophageal reflux disease, unspecified whether esophagitis present Metabolic encephalopathy Essential (primary) hypertension ([facility]) Unspecified essential hypertension Allergic rhinitis, unspecified Gastro-esophageal reflux disease without esophagitis Bilateral lower extremity edema Primary hypertension ([facility])- Primary Unspecified essential hypertension Morbid (severe) obesity due to excess calories ([facility]) Essential (primary) hypertension ([facility]) Unspecified essential hypertension Allergic rhinitis, unspecified [...] (CMS/HCC) Unspecified episodic mood disorder Primary hypertension ([facility]) Unspecified essential hypertension Left hip pain Pain in joint, pelvic region and thigh Open wound of anterior abdominal wall, initial encounter Primary hypertension ([facility]/HCC)- Primary Unspecified essential hypertension Yeast infection of the skin Candidiasis of skin and nails Morbid obesity ([facility]/HCC) Morbid obesity Primary hypertension ([facility])- Primary Unspecified essential hypertension Allergic rhinitis, unspecified Acute cough Morbid obesity ([facility]) Morbid obesity Former cigarette smoker Personal history of tobacco use, presenting hazards to health Toxic metabolic encephalopathy- Primary Hemiparesis, right ([facility]) Unspecified hemiplegia affecting unspecified side Acute respiratory failure with hypoxia ([facility]) Heart murmur Undiagnosed cardiac murmurs Primary hypertension ([facility]) Unspecified essential hypertension Morbid obesity ([facility]) Morbid obesity Bipolar disorder with severe depression ([facility]) Slurred speech Other speech disturbance Bilateral lower extremity edema- Primary Primary hypertension ([facility]/HCC) Unspecified essential hypertension Lower extremity edema Edema Essential (primary) hypertension ([facility]) Unspecified essential hypertension Gastro-esophageal reflux disease without esophagitis Allergic rhinitis, unspecified Bilateral lower extremity edema- Primary Morbid (severe) obesity due to excess calories ([facility]) Body mass index (BMI) 45.0-49.9, adult ([facility]) Pre-diabetes Other abnormal glucose Bilateral lower extremity edema- Primary Essential (primary) hypertension (CMS/HCC) Unspecified essential hypertension Allergic rhinitis, unspecified OSMANY (obstructive sleep apnea) Obstructive sleep apnea (adult) (pediatric) Primary hypertension ([facility]/HCC) Unspecified essential hypertension Morbid obesity ([facility]/HCC) Morbid obesity Well woman exam with routine gynecological exam- Primary Routine gynecological examination Morbid obesity (CMS/HCC) Morbid obesity Metabolic encephalopathy- Primary OSMANY (obstructive sleep apnea) Obstructive sleep apnea (adult) (pediatric) Morbid obesity ([facility]/HCC) Morbid obesity Bilateral lower extremity edema Tobacco dependence Tobacco use disorder Bipolar disorder with severe depression ([facility]) At risk for polypharmacy Anxiety Anxiety state, unspecified Primary hypertension ([facility]) Unspecified essential hypertension Right bundle branch block (RBBB) determined by electrocardiography Primary hypertension ([facility])- Primary Unspecified essential hypertension Chronic kidney disease, stage 3a (HCC) ([facility]) Morbid (severe) obesity due to excess calories ([facility]) Body mass index (BMI) 45.0-49.9, adult ([facility]) OSMANY (obstructive sleep apnea) Obstructive sleep apnea (adult) (pediatric) Hemiparesis, right ([facility]) Unspecified hemiplegia affecting unspecified side Gastroesophageal reflux disease, unspecified whether esophagitis present Metabolic encephalopathy Essential (primary) hypertension ([facility]) Unspecified essential hypertension Allergic rhinitis, unspecified Gastro-esophageal reflux disease without esophagitis Bilateral lower extremity edema Primary hypertension ([facility])- Primary Unspecified essential hypertension Morbid (severe) obesity due to excess calories ([facility]) Essential (primary) hypertension ([facility]) Unspecified essential hypertension Allergic rhinitis, unspecified Gastro-esophageal reflux disease without esophagitis Bilateral lower extremity edema Bronchitis Bronchitis, not specified as acute or chronic Primary hypertension ([facility])- Primary Unspecified essential hypertension Bronchitis Bronchitis, not specified as acute or chronic Bilateral lower extremity edema Morbid (severe) obesity due to excess calories ([facility]) Pre-diabetes Other abnormal glucose Allergic rhinitis, [...] Edema Pre-diabetes Other abnormal glucose Morbid obesity ([facility]) Morbid obesity Yeast infection of the [...] Candidiasis of skin and nails Morbid obesity ([facility]-HCC) Morbid obesity Primary hypertension- Primary Unspecified essential hypertension Allergic rhinitis, unspecified Acute cough Morbid obesity ([facility]) Morbid obesity Former cigarette smoker Personal history of tobacco use, presenting hazards to health Toxic metabolic encephalopathy- Primary Hemiparesis, right (HCC) Unspecified hemiplegia affecting unspecified side Acute respiratory failure with hypoxia ([facility]) Heart murmur Undiagnosed cardiac murmurs Primary hypertension Unspecified essential hypertension Morbid obesity ([facility]) Morbid obesity Bipolar disorder with severe depression ([facility]) Slurred speech Other speech disturbance Bilateral lower extremity edema- Primary Primary hypertension Unspecified essential hypertension Lower extremity edema Edema Essential (primary) hypertension Unspecified essential hypertension Gastro-esophageal reflux disease without esophagitis Allergic rhinitis, unspecified Bilateral lower extremity edema- Primary Morbid (severe) obesity due to excess calories ([facility]) Body mass index (BMI) 45.0-49.9, adult ([facility]) Pre-diabetes Other abnormal glucose Bilateral lower extremity edema- Primary Essential (primary) hypertension Unspecified essential hypertension Allergic rhinitis, unspecified OSMANY (obstructive sleep apnea) Obstructive sleep apnea (adult) (pediatric) Primary hypertension Unspecified essential hypertension Morbid obesity ([facility]) Morbid obesity Well woman exam with routine gynecological exam- Primary Routine gynecological examination Morbid obesity ([facility]) Morbid obesity Metabolic encephalopathy- Primary OSMANY (obstructive sleep apnea) Obstructive sleep apnea (adult) (pediatric) Morbid obesity ([facility]) Morbid obesity Bilateral lower extremity edema Tobacco dependence Tobacco use disorder Bipolar disorder with severe depression ([facility]) At risk for polypharmacy Anxiety Anxiety state, unspecified Primary hypertension Unspecified essential hypertension Right bundle branch block (RBBB) determined by electrocardiography Primary hypertension- Primary Unspecified essential hypertension Chronic kidney disease, stage 3a ([facility]) Morbid (severe) obesity due to excess calories ([facility]) Body mass index (BMI) 45.0-49.9, adult ([facility]) OSMANY (obstructive sleep apnea) Obstructive sleep apnea (adult) (pediatric) Hemiparesis, right (HCC) Unspecified hemiplegia affecting unspecified side Gastroesophageal reflux disease, unspecified whether esophagitis present Metabolic encephalopathy Essential (primary) hypertension Unspecified essential hypertension Allergic rhinitis, unspecified Gastro-esophageal reflux disease without esophagitis Bilateral lower extremity edema Primary hypertension- Primary Unspecified essential hypertension Morbid (severe) obesity due to excess calories ([facility]) Essential (primary) hypertension Unspecified essential hypertension Allergic rhinitis, unspecified Gastro-esophageal reflux disease without esophagitis Bilateral lower extremity edema Bronchitis Bronchitis, not specified as acute or chronic Primary hypertension- Primary Unspecified essential hypertension Bronchitis Bronchitis, not specified as acute or chronic Bilateral lower extremity edema Morbid (severe) obesity due to excess calories ([facility]) Pre-diabetes Other abnormal glucose Allergic rhinitis, unspecified [...] Edema Pre-diabetes Other abnormal glucose Morbid obesity ([facility]) Morbid obesity Yeast infection of the skin [...] Candidiasis of skin and nails Morbid obesity ([facility]) Morbid obesity Primary hypertension- Primary Unspecified essential hypertension Allergic rhinitis, unspecified Acute cough Morbid obesity ([facility]) Morbid obesity Former cigarette smoker Personal history of tobacco use, presenting hazards to health Toxic metabolic encephalopathy- Primary Hemiparesis, right (HCC) Unspecified hemiplegia affecting unspecified side Acute respiratory failure with hypoxia ([facility]) Heart murmur Undiagnosed cardiac murmurs Primary hypertension Unspecified essential hypertension Morbid obesity ([facility]) Morbid obesity Bipolar disorder with severe depression ([facility]) Slurred speech Other speech disturbance Bilateral lower extremity edema- Primary Primary hypertension Unspecified essential hypertension Lower extremity edema Edema Essential (primary) hypertension Unspecified essential hypertension Gastro-esophageal reflux disease without esophagitis Allergic rhinitis, unspecified Bilateral lower extremity edema- Primary Morbid (severe) obesity due to excess calories ([facility]) Body mass index (BMI) 45.0-49.9, adult ([facility]) Pre-diabetes Other abnormal glucose Bilateral lower extremity edema- Primary Essential (primary) hypertension Unspecified essential hypertension Allergic rhinitis, unspecified OSMANY (obstructive sleep apnea) Obstructive sleep apnea (adult) (pediatric) Primary hypertension Unspecified essential hypertension Morbid obesity ([facility]) Morbid obesity Well woman exam with routine gynecological exam- Primary Routine gynecological examination Morbid obesity ([facility]) Morbid obesity Metabolic encephalopathy- Primary OSMANY (obstructive sleep apnea) Obstructive sleep apnea (adult) (pediatric) Morbid obesity ([facility]) Morbid obesity Bilateral lower extremity edema Tobacco dependence Tobacco use disorder Bipolar disorder with severe depression ([facility]) At risk for polypharmacy Anxiety Anxiety state, unspecified Primary hypertension Unspecified essential hypertension Right bundle branch block (RBBB) determined by electrocardiography Primary hypertension- Primary Unspecified essential hypertension Chronic kidney disease, stage 3a ([facility]) Morbid (severe) obesity due to excess calories ([facility]) Body mass index (BMI) 45.0-49.9, adult ([facility]) OSMANY (obstructive sleep apnea) Obstructive sleep apnea (adult) (pediatric) Hemiparesis, right ([facility]) Unspecified hemiplegia affecting unspecified side Gastroesophageal reflux disease, unspecified whether esophagitis present Metabolic encephalopathy Essential (primary) hypertension Unspecified essential hypertension Allergic rhinitis, unspecified Gastro-esophageal reflux disease without esophagitis Bilateral lower extremity edema Primary hypertension- Primary Unspecified essential hypertension Morbid (severe) obesity due to excess calories ([facility]) Essential (primary) hypertension Unspecified essential hypertension Allergic rhinitis, unspecified Gastro-esophageal reflux disease without esophagitis Bilateral lower extremity edema Bronchitis Bronchitis, not specified as acute or chronic Primary hypertension- Primary Unspecified essential hypertension Bronchitis Bronchitis, not specified as acute or chronic Bilateral lower extremity edema Morbid (severe) obesity due to excess calories ([facility]) Pre-diabetes Other abnormal glucose Allergic rhinitis, unspecified [...] Primary osteoarthritis of right knee Morbid obesity ([facility]) Morbid obesity documented in this encounter [facility] HealthcareEvaluation note* Diagnosis Encounter for annual wellness visit (AWV) in Medicare patient- Primary OSMANY (obstructive sleep apnea) Obstructive sleep apnea (adult) (pediatric) Chronic pain disorder Chronic pain syndrome Gastroesophageal reflux disease, unspecified whether esophagitis present Overactive bladder Hypertonicity of bladder Lower extremity edema Edema Pre-diabetes Other abnormal glucose Morbid obesity ([facility]) Morbid obesity Yeast infection of the skin [...] Candidiasis of skin and nails Morbid obesity ([facility]) Morbid obesity Primary hypertension- Primary Unspecified essential hypertension Allergic rhinitis, unspecified Acute cough Morbid obesity ([facility]) Morbid obesity Former cigarette smoker Personal history of tobacco use, presenting hazards to health Toxic metabolic encephalopathy- Primary Hemiparesis, right (HCC) Unspecified hemiplegia affecting unspecified side Acute respiratory failure with hypoxia ([facility]) Heart murmur Undiagnosed cardiac murmurs Primary hypertension Unspecified essential hypertension Morbid obesity ([facility]) Morbid obesity Bipolar disorder with severe depression ([facility]) Slurred speech Other speech disturbance Bilateral lower extremity edema- Primary Primary hypertension Unspecified essential hypertension Lower extremity edema Edema Essential (primary) hypertension Unspecified essential hypertension Gastro-esophageal reflux disease without esophagitis Allergic rhinitis, unspecified Bilateral lower extremity edema- Primary Morbid (severe) obesity due to excess calories ([facility]) Body mass index (BMI) 45.0-49.9, adult ([facility]) Pre-diabetes Other abnormal glucose Bilateral lower extremity edema- Primary Essential (primary) hypertension Unspecified essential hypertension Allergic rhinitis, unspecified OSMANY (obstructive sleep apnea) Obstructive sleep apnea (adult) (pediatric) Primary hypertension Unspecified essential hypertension Morbid obesity ([facility]) Morbid obesity Well woman exam with routine gynecological exam- Primary Routine gynecological examination Morbid obesity ([facility]) Morbid obesity Metabolic encephalopathy- Primary OSMANY (obstructive sleep apnea) Obstructive sleep apnea (adult) (pediatric) Morbid obesity ([facility]) Morbid obesity Bilateral lower extremity edema Tobacco dependence Tobacco use disorder Bipolar disorder with severe depression (HCC) At risk for polypharmacy Anxiety Anxiety state, unspecified Primary hypertension Unspecified essential hypertension Right bundle branch block (RBBB) determined by electrocardiography Primary hypertension- Primary Unspecified essential hypertension Chronic kidney disease, stage 3a ([facility]) Morbid (severe) obesity due to excess calories ([facility]) Body mass index (BMI) 45.0-49.9, adult ([facility]) OSMANY (obstructive sleep apnea) Obstructive sleep apnea (adult) (pediatric) Hemiparesis, right ([facility]) Unspecified hemiplegia affecting unspecified side Gastroesophageal reflux disease, unspecified whether esophagitis present Metabolic encephalopathy Essential (primary) hypertension Unspecified essential hypertension Allergic rhinitis, unspecified Gastro-esophageal reflux disease without esophagitis Bilateral lower extremity edema Primary hypertension- Primary Unspecified essential hypertension Morbid (severe) obesity due to excess calories ([facility]) Essential (primary) hypertension Unspecified essential hypertension Allergic rhinitis, unspecified Gastro-esophageal reflux disease without esophagitis Bilateral lower extremity edema Bronchitis Bronchitis, not specified as acute or chronic Primary hypertension- Primary Unspecified essential hypertension Bronchitis Bronchitis, not specified as acute or chronic Bilateral lower extremity edema Morbid (severe) obesity due to excess calories ([facility]) Pre-diabetes Other abnormal glucose Allergic rhinitis, unspecified [...] Morbid (severe) obesity due to excess calories ([facility]) Primary hypertension Unspecified essential hypertension Anemia, unspecified type Bilateral lower extremity edema Osteoporosis, unspecified osteoporosis type, unspecified pathological fracture presence Chronic kidney disease, stage 3a ([facility]) Pre-diabetes Other abnormal glucose documented in this encounter [facility] HealthcareEvaluation note* Diagnosis Encounter for annual wellness visit (AWV) in Medicare patient- Primary OSMANY (obstructive sleep apnea) Obstructive sleep apnea (adult) (pediatric) Chronic pain disorder Chronic pain syndrome Gastroesophageal reflux disease, unspecified whether esophagitis present Overactive bladder Hypertonicity of bladder Lower extremity edema Edema Pre-diabetes Other abnormal glucose Morbid obesity ([facility]) Morbid obesity Yeast infection of the skin [...] Candidiasis of skin and nails Morbid obesity ([facility]) Morbid obesity Primary hypertension- Primary Unspecified essential hypertension Allergic rhinitis, unspecified Acute cough Morbid obesity ([facility]) Morbid obesity Former cigarette smoker Personal history of tobacco use, presenting hazards to health Toxic metabolic encephalopathy- Primary Hemiparesis, right (HCC) Unspecified hemiplegia affecting unspecified side Acute respiratory failure with hypoxia ([facility]) Heart murmur Undiagnosed cardiac murmurs Primary hypertension Unspecified essential hypertension Morbid obesity ([facility]) Morbid obesity Bipolar disorder with severe depression ([facility]) Slurred speech Other speech disturbance Bilateral lower extremity edema- Primary Primary hypertension Unspecified essential hypertension Lower extremity edema Edema Essential (primary) hypertension Unspecified essential hypertension Gastro-esophageal reflux disease without esophagitis Allergic rhinitis, unspecified Bilateral lower extremity edema- Primary Morbid (severe) obesity due to excess calories ([facility]) Body mass index (BMI) 45.0-49.9, adult ([facility]) Pre-diabetes Other abnormal glucose Bilateral lower extremity edema- Primary Essential (primary) hypertension Unspecified essential hypertension Allergic rhinitis, unspecified OSMANY (obstructive sleep apnea) Obstructive sleep apnea (adult) (pediatric) Primary hypertension Unspecified essential hypertension Morbid obesity ([facility]) Morbid obesity Well woman exam with routine gynecological exam- Primary Routine gynecological examination Morbid obesity ([facility]) Morbid obesity Metabolic encephalopathy- Primary OSMANY (obstructive sleep apnea) Obstructive sleep apnea (adult) (pediatric) Morbid obesity ([facility] [facility] Morbid obesity Bilateral lower extremity edema Tobacco dependence Tobacco use disorder Bipolar disorder with severe depression ([facility]) At risk for polypharmacy Anxiety Anxiety state, unspecified Primary hypertension Unspecified essential hypertension Right bundle branch block (RBBB) determined by electrocardiography Primary hypertension- Primary Unspecified essential hypertension Chronic kidney disease, stage 3a ([facility]) Morbid (severe) obesity due to excess calories ([facility]) Body mass index (BMI) 45.0-49.9, adult ([facility]) OSMANY (obstructive sleep apnea) Obstructive sleep apnea (adult) (pediatric) Hemiparesis, right (HCC) Unspecified hemiplegia affecting unspecified side Gastroesophageal reflux disease, unspecified whether esophagitis present Metabolic encephalopathy Essential (primary) hypertension Unspecified essential hypertension Allergic rhinitis, unspecified Gastro-esophageal reflux disease without esophagitis Bilateral lower extremity edema Primary hypertension- Primary Unspecified essential hypertension Morbid (severe) obesity due to excess calories ([facility]) Essential (primary) hypertension Unspecified essential hypertension Allergic rhinitis, unspecified Gastro-esophageal reflux disease without esophagitis Bilateral lower extremity edema Bronchitis Bronchitis, not specified as acute or chronic Primary hypertension- Primary Unspecified essential hypertension Bronchitis Bronchitis, not specified as acute or chronic Bilateral lower extremity edema Morbid (severe) obesity due to excess calories ([facility]) Pre-diabetes Other abnormal glucose Allergic rhinitis, [...] Morbid (severe) obesity due to excess calories ([facility]) Primary hypertension Unspecified essential hypertension Anemia, unspecified type Bilateral lower extremity edema Osteoporosis, unspecified osteoporosis type, unspecified pathological fracture presence Chronic kidney disease, stage 3a ([facility]) Pre-diabetes Other abnormal glucose Acute medial meniscus tear of right knee, initial encounter- Primary Chronic pain of right knee Morbid obesity ([facility]) Morbid obesity Primary osteoarthritis of right knee Preoperative testing Unspecified pre-operative examination documented in this encounter [facility] HealthcareEvaluation note* Diagnosis Encounter for annual wellness visit (AWV) in Medicare patient- Primary OSMANY (obstructive sleep apnea) Obstructive sleep apnea (adult) (pediatric) Chronic pain disorder Chronic pain syndrome Gastroesophageal reflux disease, unspecified whether esophagitis present Overactive bladder Hypertonicity of bladder Lower extremity edema Edema Pre-diabetes Other abnormal glucose Morbid obesity ([facility]) Morbid obesity Yeast infection of the [...] Candidiasis of skin and nails Morbid obesity ([facility]) Morbid obesity Primary hypertension- Primary Unspecified essential hypertension Allergic rhinitis, unspecified Acute cough Morbid obesity ([facility]) Morbid obesity Former cigarette smoker Personal history of tobacco use, presenting hazards to health Toxic metabolic encephalopathy- Primary Hemiparesis, right (HCC) Unspecified hemiplegia affecting unspecified side Acute respiratory failure with hypoxia (HCC) Heart murmur Undiagnosed cardiac murmurs Primary hypertension Unspecified essential hypertension Morbid obesity ([facility]) Morbid obesity Bipolar disorder with severe depression ([facility]) Slurred speech Other speech disturbance Bilateral lower extremity edema- Primary Primary hypertension Unspecified essential hypertension Lower extremity edema Edema Essential (primary) hypertension Unspecified essential hypertension Gastro-esophageal reflux disease without esophagitis Allergic rhinitis, unspecified Bilateral lower extremity edema- Primary Morbid (severe) obesity due to excess calories ([facility]) Body mass index (BMI) 45.0-49.9, adult ([facility]) Pre-diabetes Other abnormal glucose Bilateral lower extremity edema- Primary Essential (primary) hypertension Unspecified essential hypertension Allergic rhinitis, unspecified OSMANY (obstructive sleep apnea) Obstructive sleep apnea (adult) (pediatric) Primary hypertension Unspecified essential hypertension Morbid obesity ([facility]) Morbid obesity Well woman exam with routine gynecological exam- Primary Routine gynecological examination Morbid obesity ([facility]) Morbid obesity Metabolic encephalopathy- Primary OSMANY (obstructive sleep apnea) Obstructive sleep apnea (adult) (pediatric) Morbid obesity ([facility]) Morbid obesity Bilateral lower extremity edema Tobacco dependence Tobacco use disorder Bipolar disorder with severe depression ([facility]) At risk for polypharmacy Anxiety Anxiety state, unspecified Primary hypertension Unspecified essential hypertension Right bundle branch block (RBBB) determined by electrocardiography Primary hypertension- Primary Unspecified essential hypertension Chronic kidney disease, stage 3a ([facility]) Morbid (severe) obesity due to excess calories ([facility]) Body mass index (BMI) 45.0-49.9, adult ([facility]) OSMANY (obstructive sleep apnea) Obstructive sleep apnea (adult) (pediatric) Hemiparesis, right (HCC) Unspecified hemiplegia affecting unspecified side Gastroesophageal reflux disease, unspecified whether esophagitis present Metabolic encephalopathy Essential (primary) hypertension Unspecified essential hypertension Allergic rhinitis, unspecified Gastro-esophageal reflux disease without esophagitis Bilateral lower extremity edema Primary hypertension- Primary Unspecified essential hypertension Morbid (severe) obesity due to excess calories ([facility]) Essential (primary) hypertension Unspecified essential hypertension Allergic rhinitis, unspecified Gastro-esophageal reflux disease without esophagitis Bilateral lower extremity edema Bronchitis Bronchitis, not specified as acute or chronic Primary hypertension- Primary Unspecified essential hypertension Bronchitis Bronchitis, not specified as acute or chronic Bilateral lower extremity edema Morbid (severe) obesity due to excess calories ([facility]) Pre-diabetes Other abnormal glucose Allergic rhinitis, [...] Morbid (severe) obesity due to excess calories ([facility]) Primary hypertension Unspecified essential hypertension Anemia, unspecified type Bilateral lower extremity edema Osteoporosis, unspecified osteoporosis type, unspecified pathological fracture presence Chronic kidney disease, stage 3a ([facility]) Pre-diabetes Other abnormal glucose Primary osteoarthritis of right knee- Primary documented in this encounter [facility]* Diagnosis Encounter for annual wellness visit (AWV) in Medicare patient- Primary OSMANY (obstructive sleep apnea) Obstructive sleep apnea (adult) (pediatric) Chronic pain disorder Chronic pain syndrome Gastroesophageal reflux disease, unspecified whether esophagitis present Overactive bladder Hypertonicity of bladder Lower extremity edema Edema Pre-diabetes Other abnormal glucose Morbid obesity ([facility]) Morbid obesity Yeast infection of the [...] Candidiasis of skin and nails Morbid obesity ([facility]) Morbid obesity Primary hypertension- Primary Unspecified essential hypertension Allergic rhinitis, unspecified Acute cough Morbid obesity ([facility]) Morbid obesity Former cigarette smoker Personal history of tobacco use, presenting hazards to health Toxic metabolic encephalopathy- Primary Hemiparesis, right (HCC) Unspecified hemiplegia affecting unspecified side Acute respiratory failure with hypoxia ([facility]) Heart murmur Undiagnosed cardiac murmurs Primary hypertension Unspecified essential hypertension Morbid obesity ([facility]) Morbid obesity Bipolar disorder with severe depression ([facility]) Slurred speech Other speech disturbance Bilateral lower extremity edema- Primary Primary hypertension Unspecified essential hypertension Lower extremity edema Edema Essential (primary) hypertension Unspecified essential hypertension Gastro-esophageal reflux disease without esophagitis Allergic rhinitis, unspecified Bilateral lower extremity edema- Primary Morbid (severe) obesity due to excess calories ([facility]) Body mass index (BMI) 45.0-49.9, adult ([facility]) Pre-diabetes Other abnormal glucose Bilateral lower extremity edema- Primary Essential (primary) hypertension Unspecified essential hypertension Allergic rhinitis, unspecified OSMANY (obstructive sleep apnea) Obstructive sleep apnea (adult) (pediatric) Primary hypertension Unspecified essential hypertension Morbid obesity ([facility]) Morbid obesity Well woman exam with routine gynecological exam- Primary Routine gynecological examination Morbid obesity ([facility]) Morbid obesity Metabolic encephalopathy- Primary OSMANY (obstructive sleep apnea) Obstructive sleep apnea (adult) (pediatric) Morbid obesity ([facility]) Morbid obesity Bilateral lower extremity edema Tobacco dependence Tobacco use disorder Bipolar disorder with severe depression ([facility]) At risk for polypharmacy Anxiety Anxiety state, unspecified Primary hypertension Unspecified essential hypertension Right bundle branch block (RBBB) determined by electrocardiography Primary hypertension- Primary Unspecified essential hypertension Chronic kidney disease, stage 3a ([facility]) Morbid (severe) obesity due to excess calories ([facility]) Body mass index (BMI) 45.0-49.9, adult ([facility]) OSMANY (obstructive sleep apnea) Obstructive sleep apnea (adult) (pediatric) Hemiparesis, right ([facility]) Unspecified hemiplegia affecting unspecified side Gastroesophageal reflux disease, unspecified whether esophagitis present Metabolic encephalopathy Essential (primary) hypertension Unspecified essential hypertension Allergic rhinitis, unspecified Gastro-esophageal reflux disease without esophagitis Bilateral lower extremity edema Primary hypertension- Primary Unspecified essential hypertension Morbid (severe) obesity due to excess calories ([facility]) Essential (primary) hypertension Unspecified essential hypertension Allergic rhinitis, unspecified Gastro-esophageal reflux disease without esophagitis Bilateral lower extremity edema Bronchitis Bronchitis, not specified as acute or chronic Primary hypertension- Primary Unspecified essential hypertension Bronchitis Bronchitis, not specified as acute or chronic Bilateral lower extremity edema Morbid (severe) obesity due to excess calories ([facility]) Pre-diabetes Other abnormal glucose Allergic rhinitis, unspecified [...] Morbid (severe) obesity due to excess calories ([facility]) Primary hypertension Unspecified essential hypertension Anemia, unspecified type Bilateral lower extremity edema Osteoporosis, unspecified osteoporosis type, unspecified pathological fracture presence Chronic kidney disease, stage 3a ([facility]) Pre-diabetes Other abnormal glucose Status post arthroscopic surgery of right knee- Primary Other postprocedural status documented in this encounter [facility] Author Jace Graham [facility] March 23, 2023 11:21am Note Date/Time March 23, 2023 11:21am [facility] [address] [place] [address] Gastroenterology H&P Signed Patient: Michelle Be MR#: [id number] : 1960 Acct:[id number] Age/Sex: 62 / F Adm Date: 3 Loc: Room: Type: [facility] Attending Dr: Jace Graham MD Copies to: MD Adelaida Plummer, [employer]~ Date of Service: 03/23/2023 HISTORY & PHYSICAL: [...] Jace Graham MD> 03/23/23 [address] [facility] Work Phone: History general Narrative [...] see above surg Hospitalization History stroke 2018 [facility] Other Hospital Discharge instructions Additional Instructions Regular Diet No Activity [facility] Work Phone: Hospital Discharge instructions [...] years. -Follow up with PCP. -Office number [phone].[facility] Work Phone: reason for visit Narrative* Consultation (Routine) - Closed Specialty Diagnoses / Procedures Referred By Radha t Referred To Contact Neuropsychology Diagnoses Memory change Procedures VA OFFICE/OUTPATIENT [facility] Juany Ramirez PA [address] [place] [address] Phone: tel: fax: David Foster, PhD [address] [place] [phone] Phone: tel: fax: Referral ID Status Reason Start Date Expiration Date V isits Requested Visits Authorized [id number] Closed Specialty Services Required 03/07/2024 09/03/2024 1 [...] Documents on File Type Date Recorded 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 Power of Director It Project 03/10/2024 3:12 PM POA Documents on File Type Date Recorded 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 Power of Director It Project 03/10/2024 3:12 PM POA Documents on File Type Date Recorded 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 Power of Director It Project 03/16/2024 9:42 AM darian r of trial attorney Power of Director It Project 03/10/2024 3:12 PM POA Documents on File Type Date Recorded 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 Power of Director It Project 03/16/2024 9:42 AM darian r of trial attorney Power of Director It Project 03/10/2024 3:12 PM POA Chief Complaint and Reason for Visit Chief Complaint Bipolar Depression Reason for Visit Allergies Bipolar 2 disorder Hypertension Morbid obesity with BMI of 45.0-49.9, adult OSMANY (obstructive sleep apnea) Restless legs syndrome Chief Complaint Screening Additional Source Comments INFORMATION SOURCE (unrecogn ized section and content) DATE CREATED AUTHOR 02/18/2019 [facility] DATE CREATED AUTHOR AUTHOR'S ORGANIZ ATION 11/15/2021 [facility] DATE CREATED AUTHOR AUTHOR'S ORGANIZ ATION 08/16/2022 [facility] DATE CREATED AUTHOR AUTHOR'S ORGANIZ ATION 10/09/2024 [facility] DATE CREATED AUTHOR AUTHOR'S ORGANIZ ATION 10/23/2024 [facility] DATE CREATED AUTHOR AUTHOR'S ORGANIZ ATION 12/21/2024 [facility] DATE CREATED AUTHOR AUTHOR'S ORGANIZ ATION 12/26/2024 [facility] EPIC Care Teams (unrecognized [...] Obdulio Bragg MD Other Provider Active Joon Lindbloom , DO Other Provider Active Torin Robert [...] MD Other Provider Active Joellen Le , [employer] Other Provider Active Severo Yancey MD Other Provider Active Rao Webber MD Other Provider Active Yuan Shi MD Other Provider Active Delroy Ramirez MD Other Provider Active Berta Comer , DO Other Provider Active Negrito Ruiz , DO Other Provider Active Lacho Singh , DO Other Provider Active Rachana Hobson , PIPE CHIPPER Other Provider Active Rob Lake , DO Other Provider Active Jeff Alvarez MD Other Provider Active Urmila Rinaldi , PIPE CHIPPER Other Provider Active Bina Mayberry , PIPE CHIPPER Other Provider Active Mir Bradford MD Other Provider Active Te Da Silva MD Other Provider Active Debra Landaverde RN Other Provider Active Team Status: Inactive Member Role Status Dates Adelaida Carrion Primary Care Provider Active Jace Graham MD Attending Provider Active Mental Health Associate Relationship Specialty Start Date End Date José Luis Roberts MD [address] [place] [address] PCP - General Family Medicine 05/18/23 Adelaida Carrion NP [address] [place] [address] Referring Physician Nurse Practitioner 10/14/22 Mental Health Associate Relationship Specialty Start Date End Date José Luis Roberts MD [address] [place] [address] PCP - General Family Medicine 05/18/23 Adelaida Carrion NP [address] [place] [phone] Referring Physician Nurse Practitioner 10/14/22 Mental Health Associate Relationship Specialty Start Date End Date José Luis Roberts MD [address] [place] [phone] PCP - General Family Medicine 05/18/23 Adelaida Carrion NP [address] [place] [phone] Referring Physician Nurse Practitioner 10/14/22 Mental Health Associate Relationship Specialty Start Date End Date José Luis Roberts MD [address] [place] [phone] PCP - General Family Medicine 05/18/23 Adelaida Carrion NP Referring Physician Nurse Practitioner 10/14/22 Miriam Suarez DO [address] [place], [place] [id number] Referring Physician Neurology 06/29/23 [place] De Leon LPN Licensed Practical Nurse Family Medicine 12/18/23 Mental Health Associate Relationship Specialty Start Date End Date José Luis Roberts MD [address] [place] [phone] PCP - General Family Medicine 05/18/23 Adelaida Carrion NP Referring Physician Nurse Practitioner 10/14/22 Miriam Suarez DO [address] [place] [address] Referring Physician Neurology 06/29/23 [place] De Leon LPN Licensed Practical Nurse Family Medicine 12/18/23 Mental Health Associate Relationship Specialty Start Date End Date Unallocated, Geeta Sierra MD [address] [place], [place] [address] [address] PCP - General Family Medicine 01/27/24 Miriam Suarez DO [address] [place] [id number] Referring Physician Neurology 06/29/23 [place] De Leon LPN Licensed Practical Nurse Family Medicine 12/18/23 Adelaida Carrion, BRIANA [address] [place] [address] Nurse Practitioner Family Medicine 01/27/24 Mental Health Associate Relationship Specialty Start Date End Date Unallocated, Geeta Sierra MD [facility] [place] [address] PCP - General Family Medicine 01/27/24 Miriam Suarez DO [address] [place] [address] Referring Physician Neurology 06/29/23 [place] De [place] LPN Licensed Practical Nurse Family Medicine 12/18/23 Adelaida Carrion NP [address] [place] [address] Nurse Practitioner Family Medicine 01/27/24 Mental Health Associate Relationship Specialty Start Date End Date José Luis Roberts MD [address] [place] [address] PCP - General Family Medicine 02/02/24 Miriam Suarez DO [address] [place] [address] Referring Physician Neurology 06/29/23 [place] De [place] LPN Licensed Practical Nurse Family Medicine 12/18/23 Adelaida Carrion, BRIANA [address] [place] [address] Nurse Practitioner Family Medicine 01/27/24 Mental Health Associate Relationship Specialty Start Date End Date José Luis Roberts MD [address] [place] [address] PCP - General Family Medicine 02/02/24 Miriam Suarez DO [address] [place], [place] [phone] Referring Physician Neurology 06/29/23 Adelaida Carrion, BRIANA [address] [place] [address] Nurse Practitioner Family Medicine 01/27/24 Bong Rosado MA Family Medicine 02/12/24 Mental Health Associate Relationship Specialty Start Date End Date José Luis Roberts MD [address] [place] [address] PCP - General Family Medicine 02/02/24 Miriam Suarez DO [address] [place] [address] Referring Physician Neurology 06/29/23 Adelaida Carrion NP [address] [place] [address] Nurse Practitioner Family Medicine 01/27/24 Bong Rosado MA Family Medicine 02/12/24 Mental Health Associate Relationship Specialty Start Date End Date José Luis Roberts MD [address] [place] [address] PCP - General Family Medicine 02/02/24 Miriam Suarez DO [address] [place], [place] [phone] Referring Physician Neurology 06/29/23 Adelaida Carrion NP [address] [place] [address] Nurse Practitioner Family Medicine 01/27/24 Bong Rosado MA Family Medicine 02/12/24 Mental Health Associate Relationship Specialty Start Date End Date José Luis Roberts MD [address] [place] [phone] PCP - General Family Medicine 02/02/24 Miriam Suarez DO [address] [place] [address] Referring Physician Neurology 06/29/23 Adelaida Carrion NP [address] [place] [address] Nurse Practitioner Family Medicine 01/27/24 Bong Rosado MA Family Medicine 02/12/24 Mental Health Associate Relationship Specialty Start Date End Date José Luis Roberts MD [address] [place] [address] PCP - General Family Medicine 02/02/24 Miriam Suarez DO [address] [place] [address] Referring Physician Neurology 06/29/23 Adelaida Carrion NP [address] [place] [address] Nurse Practitioner Family Medicine 01/27/24 Bong Rosado MA Family Medicine 02/12/24 Mental Health Associate Relationship Specialty Start Date End Date José Luis Roberts MD [address] [place] [phone] PCP - General Family Medicine 02/02/24 Miriam Suarez DO [address] [place] [address] Referring Physician Neurology 06/29/23 Adelaida Carrion, BRIANA [address] [place] [address] Nurse Practitioner Family Medicine 01/27/24 Bong Rosado MA Family Medicine 02/12/24 Mental Health Associate Relationship Specialty Start Date End Date José Luis Roberts MD [address] [place] [address] PCP - General Family Medicine 02/02/24 Miriam Suarez DO [address] [place] [address] Referring Physician Neurology 06/29/23 Adelaida Carrion NP [address] [place] [address] Nurse Practitioner Family Medicine 01/27/24 Bong Rosado MA Family Medicine 02/12/24 Mental Health Associate Relationship Specialty Start Date End Date José Luis Roberts MD [address] [place] [address] PCP - General Family Medicine 02/02/24 Miriam Suarez DO [address] [place], [place] [address] Referring Physician Neurology 06/29/23 Adelaida Carrion NP [address] [place] [address] Nurse Practitioner Family Medicine 01/27/24 Bong Rosado MA Family Medicine 02/12/24 Mental Health Associate Relationship Specialty Start Date End Date José Luis Roberts MD [address] [place] [address] PCP - General Family Medicine 02/02/24 Miriam Suarez DO [address] [place] [address] Referring Physician Neurology 06/29/23 Adelaida Carrion NP [address] [place] [address] Nurse Practitioner Family Medicine 01/27/24 Bong Rosado MA Family Medicine 02/12/24 Mental Health Associate Relationship Specialty Start Date End Date José Luis Roberts MD [address] [place] [address] PCP - General Family Medicine 02/02/24 Miriam Suarez DO [address] [place] [address] Referring Physician Neurology 06/29/23 Adelaida Carrion NP [address] [place] [address] Nurse Practitioner Family Medicine 01/27/24 Bong Rosado MA Family Medicine 02/12/24 Mental Health Associate Relationship Specialty Start Date End Date José Luis Roberts MD [address] [place] [address] PCP - General Family Medicine 02/02/24 Miriam Suarez DO [address] [place] [address] Referring Physician Neurology 06/29/23 Adelaida Carrion NP [address] [place] [address] Nurse Practitioner Family Medicine 01/27/24 Bong Rosado MA Family Medicine 02/12/24 Mental Health Associate Relationship Specialty Start Date End Date José Luis Roberts MD [address] [place] [address] PCP - General Family Medicine 05/18/23 Adelaida Carrion NP Referring Physician Nurse Practitioner 10/14/22 Miriam Suarez DO [address] [address] [place] [address] Referring Physician Neurology 06/29/23 Mathew Parra LPN Licensed Practical Nurse Family Medicine 07/23/23 Mental Health Associate Relationship Specialty Start Date End Date José Luis Roberts MD [address] [place] [address] PCP - General Family Medicine 05/18/23 Adelaida Carrion NP Referring Physician Nurse Practitioner 10/14/22 Miriam Suarez DO [address] [place], [place] [address] Referring Physician Neurology 06/29/23 Mathew Parra LPN Licensed Practical Nurse Family Medicine 07/23/23 Mental Health Associate Relationship Specialty Start Date End Date José Luis Roberts MD [address] [place] [address] PCP - General Family Medicine 05/18/23 Adelaida Carrion NP Referring Physician Nurse Practitioner 10/14/22 Miriam Suarez DO [address] [place] [address] Referring Physician Neurology 06/29/23 Mathew Parra LPN Licensed Practical Nurse Family Medicine 07/23/23 Mental Health Associate Relationship Specialty Start Date End Date José Luis Roberts MD [address] [place] [address] PCP - General Family Medicine 05/18/23 Adelaida Carrion NP Referring Physician Nurse Practitioner 10/14/22 Miriam Suarez DO [address] [place] [address] Referring Physician Neurology 06/29/23 Mathew Parra LPN Licensed Practical Nurse Family Medicine 07/23/23 Mental Health Associate Relationship Specialty Start Date End Date José Luis Roberts MD [address] [place] [address] PCP - General Family Medicine 05/18/23 Adelaida Carrion NP Referring Physician Nurse Practitioner 10/14/22 Miriam Suarez DO [address] [place] [address] Referring Physician Neurology 06/29/23 [place] De Leon LPN Licensed Practical Nurse Family Medicine 12/18/23 Mental Health Associate Relationship Specialty Start Date End Date José Luis Roberts MD [address] [place] [address] PCP - General Family Medicine 05/18/23 Adelaida Carrion NP Referring Physician Nurse Practitioner 10/14/22 Miriam Suarez DO [address] [place] [address] Referring Physician Neurology 06/29/23 [place] De Leon LPN Licensed Practical Nurse Family Medicine 12/18/23 Mental Health Associate Relationship Specialty Start Date End Date José Luis Roberts MD [address] [place] [address] PCP - General Family Medicine 05/18/23 Adelaida Carrion NP Referring Physician Nurse Practitioner 10/14/22 Miriam Suarez DO [address] [place], [place] [address] Referring Physician Neurology 06/29/23 [place] De Leon LPN Licensed Practical Nurse Family Medicine 12/18/23 Mental Health Associate Relationship Specialty Start Date End Date José Luis Roberts MD [address] [place] [address] PCP - General Family Medicine 02/02/24 Miriam Suarez DO [address] [place], [place] [address] Referring Physician Neurology 06/29/23 Adelaida Carrion, BRIANA [address] [place] [address] Nurse Practitioner Family Medicine 01/27/24 Bong Rosado MA Family Medicine 02/12/24 Mental Health Associate Relationship Specialty Start Date End Date José Luis Roberts MD [address] [place] [address] PCP - General Family Medicine 02/02/24 Miriam Suarez DO [address] [place], [place] [address] Referring Physician Neurology 06/29/23 Adelaida Carrion NP [address] [place] [address] Nurse Practitioner Family Medicine 01/27/24 Bong Rosado MA Family Medicine 02/12/24 Mental Health Associate Relationship Specialty Start Date End Date José Luis Roberts MD [address] [place] [address] PCP - General Family Medicine 02/02/24 Miriam Suarez DO [address] [place], [place] [address] Referring Physician Neurology 06/29/23 Adelaida Carrion NP [address] [place] [address] Nurse Practitioner Family Medicine 01/27/24 Bong Rosado MA Family Medicine 02/12/24 Mental Health Associate Relationship Specialty Start Date End Date José Luis Roberts MD [address] [place] [address] PCP - General Family Medicine 02/02/24 Miriam Suarez DO [address] [place] [address] Referring Physician Neurology 06/29/23 Adelaida Carrion NP [address] [place] [address] Nurse Practitioner Family Medicine 01/27/24 Bong Rosado MA Family Medicine 02/12/24 Mental Health Associate Relationship Specialty Start Date End Date José Luis Roberts MD [address] [place] [address] PCP - General Family Medicine 02/02/24 Miriam Suarez DO [address] [place] [address] Referring Physician Neurology 06/29/23 Adelaida Carrion, BRIANA [address] [place] [address] Nurse Practitioner Family Medicine 01/27/24 Bong Rosado MA Family Medicine 02/12/24 Mental Health Associate Relationship Specialty Start Date End Date José Luis Roberts MD [address] [place] [address] PCP - General Family Medicine 02/02/24 Miriam Suarez DO [address] [place], [place] [address] Referring Physician Neurology 06/29/23 Adelaida Carrion, BRIANA [address] [place] [address] Nurse Practitioner Family Medicine 01/27/24 Bong Rosado MA Family Medicine 02/12/24 Mental Health Associate Relationship Specialty Start Date End Date José Luis Roberts MD [address] [place] [address] PCP - General Family Medicine 02/02/24 Miriam Suarez DO [address] [place], [place] [address] Referring Physician Neurology 06/29/23 Adelaida Carrion NP [address] [place] [address] Nurse Practitioner Family Medicine 01/27/24 Bong Rosado MA Family Medicine 02/12/24 Juany Leggett PA [address] [place] [address] Physician Mold Filling Operator Neurology 07/26/24 Mental Health Associate Relationship Specialty Start Date End Date José Luis Roberts MD [address] [place] [address] PCP - General Family Medicine 02/02/24 Miriam Suarez DO [address] [place] [address] Referring Physician Neurology 06/29/23 Adelaida Carrion NP [address] [place] [address] Nurse Practitioner Family Medicine 01/27/24 Bong Rosado MA Family Medicine 02/12/24 Juany Leggett PA [address] [place] [address] Physician Mold Filling Operator Neurology 07/26/24 Mental Health Associate Relationship Specialty Start Date End Date José Luis Roberts MD [address] [place] [address] PCP - General Family Medicine 02/02/24 Miriam Suarez DO [address] [place] [address] Referring Physician Neurology 06/29/23 Adelaida Carrion NP [address] [place] [address] Nurse Practitioner Family Medicine 01/27/24 Bong Rosado MA Family Medicine 02/12/24 Juany Leggett PA [address] [place] [address] Physician Mold Filling Operator Neurology 07/26/24 Mental Health Associate Relationship Specialty Start Date End Date José Luis Roberts MD [address] [place] [address] PCP - General Family Medicine 02/02/24 Miriam Suarez DO [address] [place] [address] Referring Physician Neurology 06/29/23 Adelaida Carrion NP [address] [place] [address] Nurse Practitioner Family Medicine 01/27/24 Bong Rosado MA Family Medicine 02/12/24 Juany Leggett PA [address] [place], [place] [address] Physician Mold Filling Operator Neurology 07/26/24 Mental Health Associate Relationship Specialty Start Date End Date José Luis Roberts MD [address] [place] [address] PCP - General Family Medicine 02/02/24 Miriam Suarez DO [address] [place] [address] Referring Physician Neurology 06/29/23 Adelaida Carrion, BRIANA [address] [place] [address] Nurse Practitioner Family Medicine 01/27/24 Bong Rosado MA Family Medicine 02/12/24 Juany Leggett PA [address] [place] [address] Physician Mold Filling Operator Neurology 07/26/24 Mental Health Associate Relationship Specialty Start Date End Date José Luis Roberts MD [address] [place] [address] PCP - General Family Medicine 02/02/24 Miriam Suarez DO [address] [place] [address] Referring Physician Neurology 06/29/23 Adelaida Carrion NP [address] [place] [address] Nurse Practitioner Family Medicine 01/27/24 Bong Rosado MA Family Medicine 02/12/24 Juany Leggett PA [address] [place] [address] Physician Mold Filling Operator Neurology 07/26/24 Mental Health Associate Relationship Specialty Start Date End Date José Luis Roberts MD [address] [place] [address] PCP - General Family Medicine 02/02/24 Miriam Suarez DO [address] [place] [address] Referring Physician Neurology 06/29/23 Adelaida Carrion NP [address] [place] [address] Nurse Practitioner Family Medicine 01/27/24 Bong Rosado MA [address] [place] [address] Family Medicine 02/12/24 Juany Leggett PA [address] [place] [address] Physician Mold Filling Operator Neurology 07/26/24 Mental Health Associate Relationship Specialty Start Date End Date José Luis Roberts MD [address] [place] [address] PCP - General Family Medicine 02/02/24 Miriam Suarez DO [address] [place] [address] Referring Physician Neurology 06/29/23 Adelaida Carrion NP [address] [place] [address] Nurse Practitioner Family Medicine 01/27/24 Bong Rosado MA [address] [place] [address] Family Medicine 02/12/24 Juany Leggett PA [address] [place] [address] Physician Mold Filling Operator Neurology 07/26/24 Mental Health Associate Relationship Specialty Start Date End Date José Luis Roberts MD [address] [place] [address] PCP - General Family Medicine 02/02/24 Miriam Suarez DO [address] [place] [address] Referring Physician Neurology 06/29/23 Adelaida Carrion NP [address] [place] [address] Nurse Practitioner Family Medicine 01/27/24 Bong Rosado MA [address] [place] [address] Family Medicine 02/12/24 Juany Leggett PA [address] [place] [address] Physician Mold Filling Operator Neurology 07/26/24 Mental Health Associate Relationship Specialty Start Date End Date José Luis Roberts MD [address] [place] [address] PCP - General Family Medicine 02/02/24 Miriam Suarez DO [address] [place] [address] Referring Physician Neurology 06/29/23 Adelaida Carrion, BRIANA [address] [place] [address] Nurse Practitioner Family Medicine 01/27/24 Bong Rosado MA [address] [place] [address] Family Medicine 02/12/24 Juany Leggett PA [address] [place] [address] Physician Mold Filling Operator Neurology 07/26/24 Mental Health Associate Relationship Specialty Start Date End Date José Luis Roberts MD [address] [place] [address] PCP - General Family Medicine 02/02/24 Miriam Suarez DO [address] [place], [place] [address] Referring Physician Neurology 06/29/23 Adelaida Carrion NP [address] [place] [address] Nurse Practitioner Family Medicine 01/27/24 Bong Rosado, [place] [address] [place] [address] Family Medicine 02/12/24 Juany Leggett PA [address] [place] [address] Physician Mold Filling Operator Neurology 07/26/24 Mental Health Associate Relationship Specialty Start Date End Date José Luis Roberts MD [address] [place] [address] PCP - General Family Medicine 02/02/24 Miriam Suarez DO [address] [place] [address] Referring Physician Neurology 06/29/23 Adelaida Carrion NP [address] [place] [address] Nurse Practitioner Family Medicine 01/27/24 Bong Rosado MA [address] [place] [address] Family Medicine 02/12/24 Juany Leggett PA [address] [place], [place] [address] Physician Mold Filling Operator Neurology 07/26/24 Mental Health Associate Relationship Specialty Start Date End Date José Luis Roberts MD [address] [place] [address] PCP - General Family Medicine 02/02/24 Miriam Suarez DO [address] [place], [place] [address] Referring Physician Neurology 06/29/23 Adelaida Carrion NP [address] [place] [address] Nurse Practitioner Family Medicine 01/27/24 Bong Rosado MA [address] [place] [address] Family Medicine 02/12/24 Juany Leggett PA [address] [place] [address] Physician Mold Filling Operator Neurology 07/26/24 Mental Health Associate Relationship Specialty Start Date End Date José Luis Roberts MD [address] [place] [address] PCP - General Family Medicine 02/02/24 Miriam Suarez DO [address] [place] [address] Referring Physician Neurology 06/29/23 Adelaida Carrion, BRIANA [address] [place] [address] Nurse Practitioner Family Medicine 01/27/24 Bong Rosado MA [address] [place] [address] Family Medicine 02/12/24 Juany Leggett PA [address] [place] [address] Physician Mold Filling Operator Neurology 07/26/24 Mental Health Associate Relationship Specialty Start Date End Date José Luis Roberts MD [address] [place] [address] PCP - General Family Medicine 02/02/24 Miriam Suarez DO [address] [place] [address] Referring Physician Neurology 06/29/23 Adelaida Carrion, BRIANA [address] [place] [address] Nurse Practitioner Family Medicine 01/27/24 Bong Rosado MA [address] [place] [address] Family Medicine 02/12/24 Juany Leggett PA [address] [place] [address] Physician Mold Filling Operator Neurology 07/26/24 Mental Health Associate Relationship Specialty Start Date End Date José Luis Roberts MD [address] [place] [address] PCP - General Family Medicine 02/02/24 Miriam Suarez DO [address] [place] [address] Referring Physician Neurology 06/29/23 Adelaida Carrion NP [address] [place] [address] Nurse Practitioner Family Medicine 01/27/24 Bong Rosado, [place] [address] [place] [address] Family Medicine 02/12/24 Juany Leggett PA [address] [place] [address] Physician Mold Filling Operator Neurology 07/26/24 Mental Health Associate Relationship Specialty Start Date End Date José Luis Roberts MD [address] [place] [address] PCP - General Family Medicine 02/02/24 Miriam Suarez DO [address] [place] [address] Referring Physician Neurology 06/29/23 Adelaida Carrion NP [address] [place] [address] Nurse Practitioner Family Medicine 01/27/24 Juany Leggett PA [address] [place] [address] Physician Mold Filling Operator Neurology 07/26/24 Mental Health Associate Relationship Specialty Start Date End Date José Luis Roberts MD [address] [place] [address] PCP - General Family Medicine 02/02/24 Miriam Suarez DO [address] [place] [address] Referring Physician Neurology 06/29/23 Adelaida Carrion NP [address] [place] [address] Nurse Practitioner Family Medicine 01/27/24 Juany Leggett PA [address] [place] [address] Physician Mold Filling Operator Neurology 07/26/24 Mental Health Associate Relationship Specialty Start Date End Date José Luis Roberts MD [address] [place] [address] PCP - General Family Medicine 02/02/24 Miriam Suarez DO [address] [place] [address] Referring Physician Neurology 06/29/23 Adelaida Carrion NP [address] [place] [address] Nurse Practitioner Family Medicine 01/27/24 Juany Leggett PA [address] [place] [address] Physician Mold Filling Operator Neurology 07/26/24 REASON FOR VISIT (unrecogniz ed section and content) Reason Comments Med Refill Reason Comments Restless Legs Encephalopathy Reason Comments Hospital Follow-up Reason Comments Anxiety Reason Comments Sleep Apnea Reason Onset Date Comments Med Refill 04/12/2024 Reason Comments Encephalopathy Reason Comments Altered Mental Status Reason Comments Hospital Follow-up Reason Comments Diabetes Reason Comments Pain Reason Comments Gynecologic Exam Reason Comments Follow-up Reason Comments Post-op Scope DAP 12/15/24 TS [facility] FOR RECORDS PERTAINING TO PATIENTS WHO ARE [...] BE BASED ON THE PRIMARY CLINICAL RECORDS. [facility] [employer] provides no warranty or guarantee of the accuracy or completeness of information in this document.
--- OUTSIDE RECORDS SUMMARY | 2025-01-09 07:08 | XMS_ITS | Encounter Summary ---
Author Organization [facility] Address [address] [place] [address] Care Team Providers Care Public Affairs Manager Name Role Phone Adelaida Carrion NP Unavailable [phone] José Luis Roberts MD Primary Care Provider [phone] José Luis Roberts MD Primary Care Provider [phone] Miriam Suarez DO Unavailable [phone] Aida, Ardana CLIENT ACCOUNT ASSISTANT Unavailable Unavailable Aida Ardana CLIENT ACCOUNT ASSISTANT Unavailable Unavailable [place] De [place] CLIENT ACCOUNT ASSISTANT Unavailable Unallocated, Noms Provider Primary Care Provi kellee Adelaida Carrion NP Unavailable [phone] José Luis Roberts MD Primary Care Provider [phone] Bong Rosado MA Unavailable [phone] Juany Leggett Unavailable Encounter Details Date Type Department Care Team (Late st Contact Info) Description 04/09/2023 Abstract [facility] [address] [place] [address] Adelaida Carrion NP [address] [place] [address] Social History Tobacco Use Types Packs/Day Years [...] on filedocumented in this encounter Care Teams Public Affairs Manager Relationship Specialty Start Date End Date José Luis Roberts MD PCP - General Family Medicine 10/14/22 05/17/23 José Luis Roberts MD PCP - General Family Medicine 05/18/23 01/26/24 Unallocated, Noms MD Mariela [address] [facility] [address] PCP - General Family Medicine 01/27/24 02/01/24 José Luis Roberts MD PCP - General Family Medicine 02/02/24 Adelaida Carrion NP Referring Physician Nurse Practitioner 10/14/22 Miriam Suarez DO [address] [place] [address] Referring Physician Neurology 06/29/23 Mathew Parra LPN Registered Nurse Family Medicine 07/07/23 07/08/23 Mathew Parra LPN Licensed Practical Nurse Family Medicine 07/23/23 [place] LPN [address] [place], [place] [address] Licensed Practical Nurse Family Medicine 12/18/2302/11 Adelaida Carrion NP [address] [place] [address] Nurse Practitioner Family Medicine 01/27/24 Bong Rosado, [place] [address] [place] [address] Family Medicine 02/12/24 11/29/24 Juany Leggett PA [address] [place] [address] Physician Carbonator Neurology 07/26/24 documented as of this encounter
[2025-01-09 07:47] VITALS: BP 145/85; PULSE 70; TEMP 36.1; O2SAT 97
[2025-01-09] MEDS: 0.9 % SODIUM CHLORIDE 10 ML SYRINGE - SALINE FLUSH INJ (08:17)
[2025-01-09] MEDS: LIDOCAINE HCL 2% 400 MG/20 ML MDV 3 ML INJ (08:18)
[2025-01-09] MEDS: IOHEXOL 240 MG/ML - 10 ML VIAL INJ (08:18)
[2025-01-09] MEDS: BUPIVACAINE HCL 0.25% PF 25 MG/10 ML VIAL INJ (08:18)
[2025-01-09] MEDS: METHYLPREDNISOLONE ACETATE 80 MG/ML VIAL INJ (08:19)
[2025-01-09 08:20] VITALS: BP 148/72; BP 152/82; PULSE 68; PULSE 72; O2SAT 98
--- NOTE | 2025-01-09 08:20 | W.PM.PROCNOT ---
Date of procedure: 01/09/25 Pre-op diagnosis: Pain due to lumbar stenosis with neurogenic claudication Post-op diagnosis: same as pre-op Procedure: Procedure: Bilateral L4-5 transforaminal epidural steroid injection Medications: Bupivacaine 0.25% 2cc, lidocaine 2% 1cc, depomedrol 80mg The patient was seen and examined in the preoperative holding area.? Informed consent was obtained and placed on the chart.? Patient was brought to the medical procedure unit and placed in the prone position where a timeout was completed verifying the correct patient, procedure site, position, and planned special equipment using sterile aseptic technique.? Under direct fluoroscopic visualization a 25-gauge Quincke tipped spinal needle was advanced at level left L4-5 to the designated neural foramen where contrast dye was injected to show adequate spread.? There was no evidence of vascular or adverse uptake.? Epidural spread was appreciated.? The above-mentioned injectate was then placed in a 1.5 mL aliquot preceded by negative aspiration.? The needle was removed. The same procedure, at the same level, was completed on the opposite side. ? Patient was taken to the postprocedural recovery area and monitored for an appropriate length of time before found suitable for discharge in the accompaniment of a responsible adult. Anesthesia: Local Surgeon: Syeda Mancuso Pathology: none sent Condition: stable Disposition: no change
== END 2025-01-09 08:25 | disposition home or self-care (01) ==
PROVIDERS: PCP Nurse Practitioner; Visit Provider Anesthesiology
DX: M48.062 Spinal stenosis, lumbar region with neurogenic claudication (principal); M54.50 Low back pain, unspecified
CPT/HCPCS: 64483; J0665; J1010; Q9966

== ENCOUNTER 2025-01-18 08:39 | Outpatient (OUT) | payer MEDICARE, SELFPAY ==
--- OUTSIDE RECORDS SUMMARY | 2020-04-11 07:00 | XMS_ITS | Continuity of Care Document ---
Author Organization [facility] Address [address] [place] [address] [place] [address] Phone Care Team Providers Care Toe Puller Name Role Phone Kayce Chanel CNP Unavailable [...] Copied on Encounter OFFICE/OUTPAT IENT VISIT, EST [facility], [address] [place] [address], [id number], [place] tel:[phone] [facility] No Information Darío Devries. [address] [place] [address], [id number], [place]. tel:[phone] Referring Provider: Kayce Chanel, [address] [place] [address] [address], [place], [address] . tel:[phone] [facility], [address] [place] [address] [address], [place], [place], [id number], [place] tel:[phone] [facility] No Information Darío Devries. [address], [place], [place], [id number], [place]. tel:[phone] Referring Provider: Kayce Chanel, [address] [place] [address] [address], [place], [address] . tel:[phone] [facility], [address] [place] [address] [address], [place], [id number], [place] tel:[phone] [facility] No Information Darío Devries. [facility] [address] [facility] [address], [place], [place], [id number], [place]. tel:[phone] Referring Provider: Kayce Chanel, [address] [place] [address] [address], [place], [address] . tel:[phone] [facility], [address] [place] [address] [address], [place], [place], [id number], [place] tel:[phone] [facility] No Information Darío Devries. [facility] [address] [facility] [address], [place], [place], [id number], [place]. tel:[phone] Referring Provider: Kayce Chanel, [facility] [address] [facility] [address], [place], [address] . tel:[phone] [facility], [address] [place] [address] [address], [place], [place], [id number], [place] tel:[phone] [facility] No Information Darío Devries. [address] [place] [address] [address], [facility] [place], [id number], [place]. tel:[phone] Referring Provider: Kayce Chanel, [address] [place] [address] [address], [place], [address] . tel:[phone] [facility], [address] [place] [address] [address], [place], [place], [id number], [place] tel:[phone] [facility] No Information Yulia Anguiano. [address] [facility] [address], [place], [place], [id number], [place]. tel:[phone] Referring Provider: Silvio Acevedo, [address] [facility] [address], [place], [address] . tel:[phone] OFFICE/OUTPAT IENT VISIT, [facility], [address] [place] [address] [address], [place], [place], [id number], [place] tel:[phone] [facility] No Information Yulia Anguiano. [address] [facility] [address], [place], [place], [id number], [place]. tel:[phone] Referring Provider: Silvio Acevedo, [address] [facility] [address], [place], [address] . tel:[phone] [facility], [address] [place] [address] [address], [place], [place], [id number], [place] tel:[phone] [facility] No Information No Information OFFICE/OUTPAT IENT VISIT, [facility], [address] [place] [address] [address], [place], [place], [id number], [place] tel:[phone] [facility] No Information Yulia Anguiano. [address] [facility] [address], [place], [place], [id number], [place]. tel:[phone] Referring Provider: Silvio Acevedo, [address] [facility] [address], [place], [address] . tel:[phone] OFFICE/OUTPAT IENT VISIT, [facility], [address] [place] [address] [address], [place], [place], [id number], [place] tel:[phone] [facility] No Information Yulia Anguiano. [address] [facility] [address], [place], [place], [id number], [place]. tel:[phone] Referring Provider: Silvio Acevedo, [address] [facility] [address], [place], [address] . tel:[phone] OFFICE/OUTPAT IENT VISIT, [facility], [address] [facility] [address], [place], [place], [id number], [place] tel:[phone] [facility] No Information Yulia Anguiano. [address] [place] [address] [address], [place], [place], [id number], [place]. tel:[phone] Referring Provider: Silvio Acevedo, [address] [place] [address] [address], [place], [address] . tel:[phone] Family History Family Member Type Diagnosis Age At Onset No Information Payers Payer name Insurance type Covered republican ID Authorgerard thakur(s) [facility] [employer] [id number] Social History Type Description Quantity Date Captured [...]
--- OUTSIDE RECORDS SUMMARY | 2025-01-18 08:41 | XMS_ITS | Encounter Summary ---
Author Organization [facility] Address [address] [place] [address] Care Team Providers Care Cna Per Diem Name Role Phone Miriam Suarez DO Unavailable [phone] Adelaida Carrion NP Unavailable [phone] José Luis Roberts MD Primary Care Provider Bong Rosado MA Unavailable [phone] Juany Leggett Unavailable Reason for Visit * Reason Onset Date Comments Med Refill 07/08/2024 Encounter Details Date Type Department Care Team (Late st Contact Info) Description 07/08/2024 Refill [facility] [address] [place] [address] José Luis Roberts MD [address] [place] [address] Social History Tobacco Use Types [...] No 05/18/2023 Social Connection and Isolation Panel Answer Date Recorded In a typical week, how many times do you talk on the phone with family, friends, or neighbors? Once a week 08/16/2023 How often do you get togethe r with friends or relatives? Patient declined 08/16/2023 How often do you attend druze or christian serv ices? Never 08/16/2023 Do [...] Recorded Patient Health Questionnaire-2 Score 2 09/21/2023 [facility] [place] of Occupat ional Health - Occupational Stress [...] MA - 07/19/2024 9:59 AM EDT Text Screen Printing Loader Unloader Hi, this is Nasim Ingram. My date of versus 9161 was calling about the dilkon that I requested to be called in yesterday. There is nothing at drug more yet. Thank you. * Telephone Encounter - Spring Weller MA - 07/18/2024 10:57 AM EDT Text Screen Printing Loader Unloader Adelaida Fraser, this is Nasim Ingram. Surendra [phone] need to have you call in a prescription for [place] to the pharmacy at [facility], Dr. Ricci, other yeast infection, thank [...] documented as of this encounter Care Teams Cna Per Diem Relationship Specialty Start Date End Date José Luis Roberts MD [address] [place] [address] PCP - General Family Medicine 02/02/24 Miriam Suarez DO [address] [place] [address] Referring Physician Neurology 06/29/23 Adelaida Carrion NP [address] [place] [address] Nurse Practitioner Family Medicine 01/27/24 Bong Rosado MA [address] [place] [address] Family Medicine 02/12/24 11/29/24 Juany Leggett PA [address] [facility] [address] [place] [id number] Physician Art Historian Neurology 07/26/24 documented as of this encounter
--- OUTSIDE RECORDS SUMMARY | 2025-01-18 08:41 | XMS_ITS | Encounter Summary ---
Author Organization [facility] Address [address] [place] [address] Care Team Providers Care Marketing Program Manager Name Role Phone DanielaSaurav baezakayleen GRAHAM Unavailable [phone] Adelaida Carrion NP Unavailable [phone] José Luis Roberts MD Primary Care Provider [phone] Bong Rosado MA Unavailable [phone] Juany Leggett Unavailable Encounter Details Date Type Department Care Team (Late st Contact Info) Description 03/02/2024 Orders Only [facility] [address] [place] [address] Adelaida Carrion, SOCIAL DIRECTOR [address] [place] [address] Social History Tobacco Use Types Packs/Day Years [...] How often do you attend baptist or christian serv ices? Never 08/16/2023 Do [...] Recorded Patient Health Questionnaire-2 Score 2 09/21/2023 [facility] [place] of Occupat ional Health - Occupational Stress [...] (03/02/2024 7:33 AM EST) us Adelaida Carrion SOCIAL DIRECTOR LAB CHG PERFORMABLES Final Resu lt documented in this encounter Visit Diagnoses Not on filedocumented in this encounter Additional Health Concerns Assessment Noted Time PHQ-9 Depression Total Score: 8 05/18/19 24 5:00 PM EST documented as of this encounter Care Teams Marketing Program Manager Relationship Specialty Start Date End Date José Luis Roberts MD [address] [place] [address] PCP - General Family Medicine 02/02/24 Miriam Suarez DO [address] [place] [address] Referring Physician Neurology 06/29/23 Adelaida Carrion NP [address] [place] [address] Nurse Practitioner Family Medicine 01/27/24 Bong Rosado MA [address] [place] [address] Family Medicine 02/12/24 11/29/24 Juany Leggett PA [address] [place] [address] Physician Geometry Tutor Neurology 07/26/24 documented as of this encounter
--- OUTSIDE RECORDS SUMMARY | 2025-01-18 08:41 | XMS_ITS | Encounter Summary ---
Author Organization [facility] Address [address] [place] [address] Care Team Providers Care Automobile Mechanic Name Role Phone Adelaida Carrion NP Unavailable [phone] José Luis Roberts MD Primary Care Provider [phone] Miriam Suarez DO Unavailable [phone] Mathew Parra TAX SERVICES PROFESSIONAL Unavailable Unavailable Diana De Leon TAX SERVICES PROFESSIONAL Unavailable Unallocated, Noms Provider Primary Care Provi kellee Adelaida Carrion NP Unavailable [phone] José Luis Roberts MD Primary Care Provider [phone] Bong Rosado MA Unavailable [phone] Juany Leggett Unavailable Encounter Details Date Type Department Care Team (Late st Contact Info) Description 09/21/2023 Orders Only [facility] [address] [place] [address] Adelaida Carrion NP [address] [place] [address] Social History Tobacco Use Types [...] How often do you attend mormonism or samaritan serv ices? Never 08/16/2023 Do [...] Recorded Patient Health Questionnaire-2 Score 2 09/21/2023 [facility] of Occupat ional Health - [...] 10:31 AM EDT Ceci Weller MA * How difficult have these problems made it for you to do your work, take care of things at home, or get along with other people? Answer Date of Assessment Author Not difficult at all 09/21/2023 10:31 AM EDT Spring Flores MA documented as of this encounter Plan [...] Modality Radiographic Nelda ging us Adelaida Carrion [facility] IMG XR PROCEDURES Final Result documented in this encounter Visit Diagnoses Not on filedocumented in this encounter Additional Health Concerns Assessment Noted Time PHQ-9 Depression Total Score: 8 05/18/19 24 5:00 PM EST documented as of this encounter Care Teams Automobile Mechanic Relationship Specialty Start Date End Date José Luis Roberts MD PCP - General Family Medicine 05/18/23 01/26/24 Unallocated, Johan Sierra MD [address] [facility] [place] [address] PCP - General Family Medicine 01/27/24 02/01/24 José Luis Roberts MD PCP - General Family Medicine 02/02/24 Adelaida Carrion NP Referring Physician Nurse Practitioner 10/14/22 Miriam Suarez DO [address] [place], [place] [address] Referring Physician Neurology 06/29/23 Mathew Parra LPN Licensed Practical Nurse Family Medicine 07/23/23 Diana De Leon LPN [address] [place] [address] Licensed Practical Nurse Family Medicine 12/18/2302/11 Adelaida Carrion NP [address] [place] [address] Nurse Practitioner Family Medicine 01/27/24 Bong Rosado, [place] [address] [place] [address] Family Medicine 02/12/24 11/29/24 Juany Leggett PA [address] [place], [place] [address] Physician Computer Support Technician Neurology 07/26/24 documented as of this encounter
--- OUTSIDE RECORDS SUMMARY | 2025-01-18 08:41 | XMS_ITS | Encounter Summary ---
Author Organization [facility] Address [address] [place] [address] Care Team Providers Care Airborne And Air Delivery Specialist Name Role Phone Miriam Suarez Unavailable [phone] Adelaida Carrion NP Unavailable [phone] José Luis Roberts MD Primary Care Provider Bong Rosado MA Unavailable [phone] Juany Leggett Unavailable Encounter Details Date Type Department Care Team (Late st Contact Info) Description 09/29/2024 Abstract [facility] [address] [place] [address] Adelaida Carrion, BRIANA [address] [place] [address] Social History Tobacco Use Types Packs/Day Years [...] How often do you attend orthodox or anabaptist serv ices? Never 08/16/2023 Do [...] Patient Health Questionnaire-2 Score 2 09/21/2023 [facility] [...] documented as of this encounter Care Teams Airborne And Air Delivery Specialist Relationship Specialty Start Date End Date José Luis Roberts MD [address] [place] [address] PCP - General Family Medicine 02/02/24 Miriam Suarez DO [address] [place] [address] Referring Physician Neurology 06/29/23 Adelaida Carrion NP [address] [place] [address] Nurse Practitioner Family Medicine 01/27/24 Bong Rosado, [place] [address] [place] [address] Family Medicine 02/12/24 11/29/24 Juany Leggett PA [address] [place] [address] Physician Financial Planning Advisor Neurology 07/26/24 documented as of this encounter
--- OUTSIDE RECORDS SUMMARY | 2025-01-18 08:41 | XMS_ITS | Encounter Summary ---
Author Organization [facility] Address [address] [place] [address] Care Team Providers Care Corner Former Name Role Phone Adelaida Carrion NP Unavailable [phone] José Luis Roberts MD Primary Care Provider [phone] Miriam Suarez DO Unavailable [phone] Mathew Parra MATRIX PLATER Unavailable Unavailable Diana De Leon LPN Unavailable Unallocated, Noms Provider Primary Care Provi kellee Adelaida Carrion NP Unavailable [phone] José Luis Roberts MD Primary Care Provider [phone] Bong Rosado MA Unavailable [phone] Juany Leggett Unavailable Encounter Details Date Type Department Care Team (Late st Contact Info) Description 09/02/2023 Orders Only [facility] [address] [place] [address] Shaikh Alberto MD [address] [place]é [place] [address] Social History Tobacco Use Types [...] How often do you attend sikh or sabianist serv ices? Never 08/16/2023 Do [...] Health Questionnaire-2 Score 0 08/17/2023 [facility] of Occupat ional Health - Occupational Stress [...] Region Laterality Modality Chest Radiographic Nelda ging Shaikh Dolly JAIMES IMG XR PROCEDURES Final Result documented in this encounter Visit Diagnoses Not on filedocumented in this encounter Additional Health Concerns Assessment Noted Time PHQ-9 Depression Total Score: 8 05/18/19 24 5:00 PM EST documented as of this encounter Care Teams Corner Former Relationship Specialty Start Date End Date José Luis Roberts MD PCP - General Family Medicine 05/18/23 01/26/24 Unallocated, Noms ProviderMD [address] [place] [address] PCP - General Family Medicine 01/27/24 02/01/24 José Luis Roberts MD PCP - General Family Medicine 02/02/24 Adelaida Carrion NP Referring Physician Nurse Practitioner 10/14/22 Miriam Suarez DO [address] [place] [address] Referring Physician Neurology 06/29/23 Mathew Parra LPN Licensed Practical Nurse Family Medicine 07/23/23 Diana De Leon LPN [address] [place] [address] Licensed Practical Nurse Family Medicine 12/18/2302/11 Adelaida Carrion NP [address] [place] [address] Nurse Practitioner Family Medicine 01/27/24 Bong Rosado MA [address] [place] [address] Family Medicine 02/12/24 11/29/24 Juany Leggett PA [address] [place] [address] Physician Tyre Builder Neurology 07/26/24 documented as of this encounter
--- OUTSIDE RECORDS SUMMARY | 2025-01-18 08:41 | XMS_ITS | Encounter Summary ---
Author Organization [facility] Address [address] [place] [address] Care Team Providers Care Sock Liner Name Role Phone Miriam Suarez DO Unavailable [phone] Adelaida Carrion NP Unavailable [phone] José Luis Roberts MD Primary Care Provider Bong Rosado MA Unavailable [phone] Juany Leggett Unavailable Reason for Visit * Reason Onset Date Comments Med Refill 04/12/2024 Encounter Details Date Type Department Care Team (Late st Contact Info) Description 04/12/2024 Refill [address] [facility] [address] [place] [address] José Luis Roberts MD [address] [place] [address] Social History Tobacco Use Types [...] How often do you attend baptist or sabianism serv ices? Never 08/16/2023 Do [...] Score 2 09/21/2023 [facility] [place] of Occupat ional Health - Occupational Stress [...] documented as of this encounter Care Teams Sock Liner Relationship Specialty Start Date End Date José Luis Roberts MD [address] [place] [address] PCP - General Family Medicine 02/02/24 Miriam Suarez DO [address] [place] [address] Referring Physician Neurology 06/29/23 Adelaida Carrion NP [address] [place] [address] Nurse Practitioner Family Medicine 01/27/24 Bong Rosado MA [address] [place] [address] Family Medicine 02/12/24 11/29/24 Juany Leggett PA [address] [place] [address] Physician Bottling Machine Operator Neurology 07/26/24 documented as of this encounter
--- OUTSIDE RECORDS SUMMARY | 2025-01-18 08:41 | XMS_ITS | Encounter Summary ---
Author Organization [facility] Address [address] [place] [address] Care Team Providers Care Branch General Manager Name Role Phone Adelaida Carrion NP Unavailable [phone] José Luis Roberts MD Primary Care Provider [phone] Miriam Suarez DO Unavailable [phone] Mathew Parra VEHICLE GLASS TECHNICIAN Unavailable Unavailable Diana De Leon LPN Unavailable Unallocated, Noms Provider Primary Care Provi kellee Adelaida Carrion NP Unavailable [phone] José Luis Roberts MD Primary Care Provider [phone] Bong Rosado MA Unavailable [phone] Juany Leggett Unavailable Encounter Details Date Type Department Care Team (Late st Contact Info) Description 10/27/2023 Abstract [facility] [address] [facility] [address] [place] [address] Unallocated, Noms Provider, [address] [place] [address] Social History Tobacco Use Types Packs/Day Years [...] How often do you attend sikh or mandaen serv ices? Never 08/16/2023 Do [...] 09/21/2023 [facility] of Occupat ional Health - Occupational [...] documented as of this encounter Care Teams Branch General Manager Relationship Specialty Start Date End Date José Luis Roberts MD PCP - General Family Medicine 05/18/23 01/26/24 Unallocated, oJhan Sierra MD [address] [place] [address] PCP - General Family Medicine 01/27/24 02/01/24 José Luis Roberts MD PCP - General Family Medicine 02/02/24 Adelaida Carrion NP Referring Physician Nurse Practitioner 10/14/22 Miriam Suarez DO [address] [place] [address] Referring Physician Neurology 06/29/23 Mathew Parra LPN Licensed Practical Nurse Family Medicine 07/23/23 Diana De Leon LPN [address] [facility] [address] [place] [address] Licensed Practical Nurse Family Medicine 12/18/2302/11 Adelaida Carrion NP [address] [place] [address] Nurse Practitioner Family Medicine 01/27/24 Bong Rosado, [place] [address] [place] [address] Family Medicine 02/12/24 11/29/24 Juany Leggett PA [address] [facility] [address] [place] [address] Physician Weaver Tire Cord Neurology 07/26/24 documented as of this encounter
--- OUTSIDE RECORDS SUMMARY | 2025-01-18 08:41 | XMS_ITS | Encounter Summary ---
Author Organization [facility] Address [address] [place] [address] Care Team Providers Care Regional Psychiatric Director Name Role Phone Adelaida Carrion NP Unavailable [phone] José Luis Roberts MD Primary Care Provider [phone] Miriam Suarez DO Unavailable [phone] Mathew Parra SHIP CONSTRUCTION TEACHER Unavailable Unavailable Diana De Leon LPN Unavailable Unallocated, Noms Provider Primary Care Provi kellee Adelaida Carrion NP Unavailable [phone] José Luis Roberts MD Primary Care Provider [phone] Bong Rosado MA Unavailable [phone] Juany Leggett Unavailable Encounter Details Date Type Department Care Team (Late st Contact Info) Description 09/18/2023 Clinisync Result Encounter [facility] External Department Unsolicited Adelaida Carrion NP [address] [place] [address] Social History Tobacco Use Types Packs/Day Years [...] How often do you attend catholic or rastafarian serv ices? Never 08/16/2023 Do you belong [...] Questionnaire-2 Score 2 09/21/2023 [facility] - Occupational Stress Questionnaire [...] PM EDT Narrative 09/18/2023 1:43 [place] [address] Mammography Report Signed Patient: NASIM INGRAM MR#: [id number] : 1960 Acct:[id number] Age/Sex: 62 / F ADM Date: 09/18/23 Loc: MAMMO Attending Dr: Adelaida Carrion NP Ordering Physician: Adelaida Carrion NP Results: Date of Service: 09/18/23 Follow Up: Procedure(s): MM tomosynthesis screening BI Accession Number(s): [id number] cc: Adelaida Carrion NP Patient Name: NASIM INGRAM MR#: [id number] : 1960 Exam Date: 09/18/2023 Ordering Doctor: [...] Treatments None Family Cancers None LOCATION: [facility] BREAST COMPOSITION: There are scattered areas [...] Signed By: 09/18/23 1343 DD/ 1342 TD/TT: Wire Lather: Procedure Note Radiology, Radiologist, MD - 09/18/2023 [place] [address] Mammography Report Signed Patient: NASIM INGRAM LMR#: [id number] : 1960cct:[id number] Age/Sex: 62 / FADM Date: 09/18/23 Loc: MAMMO Attending Dr: Adelaida Carrion NP Ordering Physician: Adelaida Carrion NPResults: Date of Service: 09/18/23Follow Up: Procedure(s): MM tomosynthesis screening BI Accession Number(s): [id number] cc: Adelaida Carrion NP Patient Name: NASIM INGRAM MR#: [id number] : 1960 Exam Date: 09/18/2023 Ordering Doctor: LIVIER Carrion CNP RADIOLOGY REPORT PROCEDURE: MM TOMOSYNTHESIS SCREENING BI COMPARISON: MM TOMOSYNTHESIS SCREENING BI, 09/15/2022. MG MAMM [id number] BHUMI CAD, 06/20/2021. INDICATIONS: Screening Calculator Name NCI Breast Cancer Risk Assessment Tool 5 Year Breast Cancer Risk 2.20% Lifetime Breast Cancer Risk 10.30% Personal Breast Cancer No Personal Ovarian Cancer No Treatments None Family Cancers None LOCATION: [facility] BREAST COMPOSITION: There are scattered areas [...] M.D. Signed By:09/18/23 1343 DD/ 1342 TD/TT: Wire Lather: us Adelaida Carrion NP [facility] Final Result documented in this encounter Visit Diagnoses Not on filedocumented in this encounter Additional Health Concerns Assessment Noted Time PHQ-9 Depression Total Score: 8 05/18/19 24 5:00 PM EST documented as of this encounter Care Teams Regional Psychiatric Director Relationship Specialty Start Date End Date José Luis Roberts MD PCP - General Family Medicine 05/18/23 01/26/24 Unallocated, [place] [address] [place] [address] PCP - General Family Medicine 01/27/24 02/01/24 José Luis Roberts MD PCP - General Family Medicine 02/02/24 Adelaida Carrion NP Referring Physician Nurse Practitioner 10/14/22 Miriam Suarez DO [address] [place] [address] Referring Physician Neurology 06/29/23 Mathew Parra LPN Licensed Practical Nurse Family Medicine 07/23/23 Diana De Leon LPN [address] [place], [place] [address] Licensed Practical Nurse Family Medicine 12/18/2302/11 Adelaida Carrion NP [address] [place] [address] Nurse Practitioner Family Medicine 01/27/24 Bong Rosado, [place] [address] [place] [address] Family Medicine 02/12/24 11/29/24 Juany Leggett PA [address] [place] [address] Physician Dump Motorman Neurology 07/26/24 documented as of this encounter
--- OUTSIDE RECORDS SUMMARY | 2025-01-18 08:41 | XMS_ITS | Encounter Summary ---
Author Organization [facility] Address [address] [place] [address] Care Team Providers Care Construction Millwright Name Role Phone Miriam Suarez Unavailable [phone] Adelaida Carrion NP Unavailable [phone] José Luis Roberts MD Primary Care Provider [phone] Bong Rosado MA Unavailable [phone] Juany Leggett Unavailable Encounter Details Date Type Department Care Team (Late st Contact Info) Description 03/21/2024 Orders Only [facility] [address] [place] [address] Adelaida Carrion, STEVEDORING SUPERINTENDENT [address] [place] [address] Social History Tobacco Use Types Packs/Day Years [...] How often do you attend muslim or episcopal serv ices? Never 08/16/2023 Do [...] Questionnaire-2 Score 2 09/21/2023 [facility] of Occupat ional Health - Occupational Stress [...] * SCANNED LABS (03/21/2024 2:30 PM EST) [facility] LAB CHG PERFORMABLES Final Res ult * SCANNED LABS (03/21/2024 2:21 PM EST) Adelaida Carrion NP LAB CHG PERFORMABLES Final Resu lt * ECG 12 lead (03/21/2024 2:19 PM EST) Result [facility] ECG ORDERABLES Final Result * ECG 12 lead (03/21/2024 2:15 PM EST) Result [facility] ECG ORDERABLES Final Result * ECG 12 lead (03/21/2024 2:10 PM EST) Clayton Galvan MD ECG ORDERABLES Final Result * ECG 12 lead (03/21/2024 2:07 PM EST) Result [facility] Rochelle Keene MD ECG ORDERABLES Final Result * Complete echocardiogram dobutamine stress test (03/21/2024 2:03 PM EST) Anatomical Region Laterality Modality Ultrasound Adelaida Carrion NP CV ECHO PROCEDURES Final Result documented in this encounter Visit Diagnoses Not on filedocumented in this encounter Additional Health Concerns Assessment Noted Time PHQ-9 Depression Total Score: 8 05/18/19 24 5:00 PM EST documented as of this encounter Care Teams Construction Millwright Relationship Specialty Start Date End Date José Luis Roberts MD [address] [place] [address] PCP - General Family Medicine 02/02/24 Miriam Suarez DO [address] [place] [address] Referring Physician Neurology 06/29/23 Adelaida Carrion NP [address] [place] [place] [address] Nurse Practitioner Family Medicine 01/27/24 Bong Rosado MA [address] [place] [address] Family Medicine 02/12/24 11/29/24 Juany Leggett PA [address] [place] [address] Physician Compliance Paralegal Neurology 07/26/24 documented as of this encounter
--- OUTSIDE RECORDS SUMMARY | 2025-01-18 08:41 | XMS_ITS | Encounter Summary ---
Author Organization [facility] Address [address] [place] [address] Care Team Providers Care Community Liaison Officer Name Role Phone Adelaida Carrion NP Unavailable [phone] José Luis Roberts MD Primary Care Provider [phone] Miriam Suarez DO Unavailable [phone] Mathew Parra NON DESTRUCTIVE TESTING SCIENTIST Unavailable Unavailable Diana De Leon LPN Unavailable Unallocated, Noms Provider Primary Care Provi kellee Adelaida Carrion NP Unavailable [phone] José Luis Roberts MD Primary Care Provider [phone] Bong Rosado MA Unavailable [phone] Juany Leggett Unavailable Encounter Details Date [...] How often do you attend anglican or temple serv ices? Never 08/16/2023 Do [...] Recorded Patient Health Questionnaire-2 Score 2 09/21/2023 [facility] of Occupat ional Health - Occupational Stress [...] PM EDT Narrative 12/02/2023 2:55 [place] [address] XRay Report Signed Patient: NASIM INGRAM MR#: [id number] : 1960 Acct:[id number] Age/Sex: 62 / F ADM Date: 12/02/23 Loc: RAD Attending Dr: Elizabeth Cano NP Ordering Physician: Elizabeth Cano NP Date of Service: 12/02/23 Procedure(s): XR lumbar spine 6V w bending Accession Number(s): [id number] cc: Adelaida Carrion NP; Elizabeth Cano NP [place] [address] Patient Name: NASIM INGRAM MRN: [id number] date: 1960 Sex: F Assigned Patient Location: [facility] Current Patient Location: [facility] Accession/Order Number: [id number] Exam Date: 12/02/2023 14:10 Report Date: 12/02/2023 [...] Dictated By: Harrison Maciel M.D. Signed By: 12/02/231454 DD/ 52 TD/TT: Twisting Operator: Procedure Note Radiology, Radiologist, - 12/02/2023 [place] [address] XRay Report Signed Patient: NASIM INGRAM LMR#: [id number] : 1960cct:[id number] Age/Sex: 62 / FADM Date: 12/02/23 Loc: RAD Attending Dr: Elizabeth Cano NP Ordering Physician: Elizabeth Cano NP Date of Service: 12/02/23 Procedure(s): XR lumbar spine 6V w bending Accession Number(s): [id number] cc: Adelaida Carrion NP; Elizabeth Cano NP [address] [place] [address] Patient Name: NASIM INGRAM MRN: [id number] date: 1960 Sex: F Assigned Patient Location: [facility] Current Patient Location: [facility] Accession/Order Number: [id number] Exam Date: 12/02/2023 14:10 Report Date: 12/02/2023 [...] 14:53 Dictated By: Harrison Maciel M.D. Signed By:12/02/231454 DD/ 52 TD/TT: Twisting Operator: us Generic External Data Provider [facility] Final Result documented in this encounter Visit Diagnoses Not on filedocumented in this encounter Additional Health Concerns Assessment Noted Time PHQ-9 Depression Total Score: 8 05/18/19 24 5:00 PM EST documented as of this encounter Care Teams Community Liaison Officer Relationship Specialty Start Date End Date José Luis Roberts MD PCP - General Family Medicine 05/18/23 01/26/24 Unallocated, Nomluly Sierra MD [address] [facility] [place] [address] PCP - General Family Medicine 01/27/24 02/01/24 José Luis Roberts MD PCP - General Family Medicine 02/02/24 Adelaida Carrion NP Referring Physician Nurse Practitioner 10/14/22 Miriam Suarez DO [address] [place] [address] Referring Physician Neurology 06/29/23 Mathew Parra LPN Licensed Practical Nurse Family Medicine 07/23/23 Diana De Leon LPN [address] [place] [address] Licensed Practical Nurse Family Medicine 12/18/2302/11 Adelaida Carrion NP [address] [place] [address] Nurse Practitioner Family Medicine 01/27/24 Bong Rosado MA [address] [place] [address] Family Medicine 02/12/24 11/29/24 Juany Leggett PA [address] [facility] [address] [place] [address] Physician Laundry Machine Mechanic Neurology 07/26/24 documented as of this encounter
--- OUTSIDE RECORDS SUMMARY | 2025-01-18 08:42 | XMS_ITS | Encounter Summary ---
Author Organization [facility] Address [address] [place] [address] Care Team Providers Care Manual Lathe Machinist Name Role Phone Miriam Suarez Unavailable [phone] Adelaida Carrion NP Unavailable [phone] José Luis Roberts MD Primary Care Provider Bong Rosado MA Unavailable [phone] Juany Leggett Unavailable Encounter Details Date Type Department Care Team (Late st Contact Info) Description 10/10/2024 Abstract [facility] [address] [place] [address] Adelaida Carrion, BRIANA [address] [place] [address] Social History Tobacco Use Types Packs/Day Years [...] How often do you attend orthodoxy or alevism serv ices? Never 08/16/2023 Do [...] Recorded Patient Health Questionnaire-2 Score 2 09/21/2023 [facility] - [...] documented as of this encounter Care Teams Manual Lathe Machinist Relationship Specialty Start Date End Date José Luis Roberts MD [address] [place] [address] PCP - General Family Medicine 02/02/24 Miriam Suarez DO [address] [place] [address] Referring Physician Neurology 06/29/23 Adelaida Carrion NP [address] [place] [address] Nurse Practitioner Family Medicine 01/27/24 Bong Rosado, [place] [address] [place] [address] Family Medicine 02/12/24 11/29/24 Juany Leggett PA [address] [place] [address] Physician Scheduler Conveyor Neurology 07/26/24 documented as of this encounter
--- OUTSIDE RECORDS SUMMARY | 2025-01-18 08:42 | XMS_ITS | Encounter Summary ---
Author Organization [facility] Address [address] [place] [address] Care Team Providers Care Escort Service Attendant Name Role Phone Miriam Suarez Unavailable [phone] Adelaida Carrion NP Unavailable [phone] José Luis Roberts MD Primary Care Provider Bong Rosado MA Unavailable [phone] Juany Leggett Unavailable Encounter Details Date Type Department Care Team (Late st Contact Info) Description 10/10/2024 Abstract [facility] [address] [place] [address] Adelaida Carrion, BRIANA [address] [place] [address] Social History Tobacco Use Types Packs/Day Years [...] How often do you attend christian or rastafari serv ices? Never 08/16/2023 Do you belong [...] Recorded Patient Health Questionnaire-2 Score 2 09/21/2023 [facility] - Occupational [...] documented as of this encounter Care Teams Escort Service Attendant Relationship Specialty Start Date End Date José Luis Roberts MD [address] [place] [address] PCP - General Family Medicine 02/02/24 Miriam Suarez DO [address] [place] [address] Referring Physician Neurology 06/29/23 Adelaida Carrion NP [address] [place] [address] Nurse Practitioner Family Medicine 01/27/24 Bong Rosado, [place] [address] [place] [address] Family Medicine 02/12/24 11/29/24 Juany Leggett PA [address] [place] [address] Physician Marketing Automation Specialist Neurology 07/26/24 documented as of this encounter
--- OUTSIDE RECORDS SUMMARY | 2025-01-18 08:42 | XMS_ITS | Encounter Summary ---
Author Organization [facility] Address [address] [place] [address] Care Team Providers Care Factory Focus Technician Name Role Phone Adelaida Carrion NP Unavailable [phone] José Luis Roberts MD Primary Care Provider +-[phone] [phone] José Luis Roberts MD Primary Care Provider +-48 7-0340 Miriam Suarez DO Unavailable [phone] [place], Ardana TOWEL STRETCHER Unavailable Unavailable Aida Ardana TOWEL STRETCHER Unavailable Unavailable Diana De Leon TOWEL STRETCHER Unavailable Unallocated, Noms Provider Primary Care Provi kellee Adelaida Carrion NP Unavailable [phone] José Luis Roberts MD Primary Care Provider +-[phone] Bong Rosado MA Unavailable [phone] Juany Leggett Unavailable Encounter Details Date Type Department Care Team (Late st Contact Info) Description 03/06/2023 Clinisync Result Encounter [facility] External Department Unsolicited Ashleigh Hines, MAUREEN [address] [place] [address] Social History Tobacco Use Types [...] PM EST Narrative 03/06/2023 3:55 [place] [address] Magnetic Resonance Report Signed Patient: NASIM INGRAM MR#: [id number] : 1960 Acct:[id number] Age/Sex: 62 / F ADM Date: 03/06/23 Loc: MRI Attending Dr: Ashleigh REDDY Ordering Physician: Ashleigh Hines Date of Service: 03/06/23 Procedure(s): knee RT wo con Accession Number(s): [id number] cc: Adelaida Carrion NP; Ashleigh Hines [place] [id number] Patient Name: NASIM INGRAM MRN: [id number] date: 1960 Sex: F Assigned Patient Location: MRI Current Patient Location: MRI Accession/Order Number: [id number] Exam Date: 03/06/2023 09:30 Report Date: 03/06/2023 [...] By: 03/06/23 1558 DD/ 1555 TD/TT: Supervisor Accounting Clerks: Procedure Note Radiology, Radiologist, MD - 03/06/2023 [place] [address] Magnetic Resonance Report Signed Patient: NASIM INGRAM LMR#: [id number] : 1960cct:[id number] Age/Sex: 62 / FADM Date: 03/06/23 Loc: MRI Attending Dr: Ashleigh REDDY Ordering Physician: Ashleigh Hines Date of Service: 03/06/23 Procedure(s): MR knee RT wo con Accession Number(s): [id number] cc: Adelaida Carrion NP; Ashleigh Hines [place] [id number] Patient Name: NASIM INGRAM MRN: [id number] date: 1960 Sex: F Assigned Patient Location: MRI Current Patient Location: MRI Accession/Order Number: [id number] Exam Date: 03/06/2023 09:30 Report Date: 03/06/2023 [...] Signed By:03/06/23 1558 DD/ 1555 TD/TT: Supervisor Accounting Clerks: us Ashleigh REDDY [facility] Final Resul t documented in this encounter Visit Diagnoses Not on filedocumented in this encounter Care Teams Factory Focus Technician Relationship Specialty Start Date End Date José Luis Roberts MD PCP - General Family Medicine 10/14/22 05/17/23 José Luis Roberts MD PCP - General Family Medicine 05/18/23 01/26/24 Unallocated, Johan Sierra MD [address] [place], [place] [address] PCP - General Family Medicine 01/27/24 02/01/24 José Luis Roberts MD PCP - General Family Medicine 02/02/24 Adelaida Carrion NP Referring Physician Nurse Practitioner 10/14/22 Miriam Suarez DO [address] [place] [address] Referring Physician Neurology 06/29/23 Mathew Parra LPN Registered Nurse Family Medicine 07/07/23 07/08/23 Mathew Parra LPN Licensed Practical Nurse Family Medicine 07/23/23 Diana De Leon LPN [address] [place] [address] Licensed Practical Nurse Family Medicine 12/18/2302/11 Adelaida Carrion, BRIANA [address] [facility] [place] [address] Nurse Practitioner Family Medicine 01/27/24 Bong Rosado MA [address] [place] [address] Family Medicine 02/12/24 11/29/24 Juany Leggett PA [address] [place] [address] Physician Senior Erp Consultant Neurology 07/26/24 documented as of this encounter
--- OUTSIDE RECORDS SUMMARY | 2025-01-18 08:42 | XMS_ITS | Encounter Summary ---
Author Organization [facility] Address [address] [place] [address] Care Team Providers Care Credit Collections Specialist Name Role Phone DanielaSaurav baezakayleen GRAHAM Unavailable [phone] Adelaida Carrion NP Unavailable [phone] José Luis Roberts MD Primary Care Provider Bong Rosado MA Unavailable [phone] Juany Leggett Unavailable Encounter Details Date Type Department Care Team (Late st Contact Info) Description 10/24/2024 Orders Only [facility] [address] [place] [address] Adelaida Carrion, HULL GRINDER [address] [place] [address] Social History Tobacco Use Types Packs/Day Years [...] How often do you attend latter-day or anglican serv ices? Never 08/16/2023 Do [...] 2 09/21/2023 [facility] [place] of Occupat ional Health - Occupational [...] Body Radiographic Nelda ging us Adelaida Carrion HULL GRINDER IMG DXA PROCEDURES Final Result documented in this encounter Visit Diagnoses Not on filedocumented in this encounter Additional Health Concerns Assessment Noted Time PHQ-9 Depression Total Score: 8 05/18/19 24 5:00 PM EST documented as of this encounter Care Teams Credit Collections Specialist Relationship Specialty Start Date End Date José Luis Roberts MD [address] [place] [address] PCP - General Family Medicine 02/02/24 Miriam Suarez DO [address] [place] [address] Referring Physician Neurology 06/29/23 Adelaida Carrion NP [address] [place] [address] Nurse Practitioner Family Medicine 01/27/24 Bong Rosado MA [address] [place] [address] Family Medicine 02/12/24 11/29/24 Juany Leggett PA [address] [place] [address] Physician Steel Roller Neurology 07/26/24 documented as of this encounter
--- OUTSIDE RECORDS SUMMARY | 2025-01-18 08:42 | XMS_ITS | Encounter Summary ---
Author Organization [facility] Address [address] [facility] [place] [address] Care Team Providers Care Fieldwork Coordinator Name Role Phone Adelaida Carrion NP Unavailable [phone] José Luis Roberts MD Primary Care Provider +[phone] José Luis Roberts MD Primary Care Provider +-71 [phone] Miiram Suarez DO Unavailable [phone] Aida, Ardana PERENNIAL HOUSE MANAGER Unavailable Unavailable Aida Ardana PERENNIAL HOUSE MANAGER Unavailable Unavailable Diana De Leon PERENNIAL HOUSE MANAGER Unavailable Unallocated, Noms Provider Primary Care Provi kellee Adelaida Carrion NP Unavailable [phone] José Luis Roberts MD Primary Care Provider +-[phone] [phone] Bong Rosado MA Unavailable [phone] Juany Leggett Unavailable Encounter Details Date Type Department Care Team (Late st Contact Info) Description 11/14/2022 Abstract [facility] [address] [place] [address] Travon Hines PA [address] [place] [address] Social History Tobacco Use Types [...] on filedocumented in this encounter Care Teams Fieldwork Coordinator Relationship Specialty Start Date End Date José Luis Roberts MD PCP - General Family Medicine 10/14/22 05/17/23 José Luis Roberts MD PCP - General Family Medicine 05/18/23 01/26/24 Unallocated, Johna Sierra MD [address] [facility] [place] [address] PCP - General Family Medicine 01/27/24 02/01/24 José Luis Roberts MD PCP - General Family Medicine 02/02/24 Adelaida Carrion NP Referring Physician Nurse Practitioner 10/14/22 Miriam Suarez DO [address] [place] [address] Referring Physician Neurology 06/29/23 Mathew Parra LPN Registered Nurse Family Medicine 07/07/23 07/08/23 Mathew Parra LPN Licensed Practical Nurse Family Medicine 07/23/23 Diana De Leon LPN [address] [place] [address] Licensed Practical Nurse Family Medicine 12/18/2302/11 Adelaida Carrion NP [address] [place] [address] Nurse Practitioner Family Medicine 01/27/24 Bong Rosado, [place] [address] [place] [address] Family Medicine 02/12/24 11/29/24 Juany Leggett PA [address] [place], [place] [address] Physician Medical Lab Director Neurology 07/26/24 documented as of this encounter
--- OUTSIDE RECORDS SUMMARY | 2025-01-18 08:42 | XMS_ITS | Encounter Summary ---
Author Organization [facility] Address [address] [place] [address] Care Team Providers Care Surface Lay Out Technician Name Role Phone Miriam Suarez Unavailable [phone] Adelaida Carrion NP Unavailable [phone] José Luis Roberts MD Primary Care Provider [phone] Bong Rosado MA Unavailable [phone] Juany Leggett Unavailable Encounter Details Date Type Department Care Team (Late st Contact Info) Description 10/10/2024 Abstract [facility] [address] [place] [address] Adelaida Carrion, BRIANA [address] [place] [address] Social History Tobacco Use Types Packs/Day Years [...] How often do you attend christianity or faith serv ices? Never 08/16/2023 Do [...] Score 2 09/21/2023 [facility] - Occupational Stress [...] documented as of this encounter Care Teams Surface Lay Out Technician Relationship Specialty Start Date End Date José Luis Roberts MD [address] [place] [address] PCP - General Family Medicine 02/02/24 Miriam Suarez DO [address] [place] [address] Referring Physician Neurology 06/29/23 Adelaida Carrion NP [address] [place] [address] Nurse Practitioner Family Medicine 01/27/24 Bong Rosado, [place] [address] [place] [place] [address] Family Medicine 02/12/24 11/29/24 Juany Leggett PA [address] [place] [address] Physician Trim Operator Neurology 07/26/24 documented as of this encounter
--- OUTSIDE RECORDS SUMMARY | 2025-01-18 08:42 | XMS_ITS | Encounter Summary ---
Author Organization [facility] Address [address] [facility] [place] [address] Care Team Providers Care Hydrotechnical Specialist Name Role Phone Adelaida Carrion NP Unavailable [phone] José Luis Roberts MD Primary Care Provider [phone] José Luis Roberts MD Primary Care Provider +-[phone] Miriam Suarez DO Unavailable [phone] Aida, Ardana LAB TECHNOLOGIST Unavailable Unavailable Aida Ardana LAB TECHNOLOGIST Unavailable Unavailable Diana De Leon LAB TECHNOLOGIST Unavailable Unallocated, Noms Provider Primary Care Provi kellee Adelaida Carrion INTELLIGENCE SENIOR SERGEANT Unavailable [phone] José Luis Roberts MD Primary Care Provider +-[phone] Bong Rosado MA Unavailable [phone] Juany Leggett Unavailable Encounter Details Date Type Department Care Team (Late st Contact Info) Description 01/09/2023 Abstract [facility] [address] [place] [address] Travon Hines PA [address] [place] [address] Social History Tobacco Use Types [...] on filedocumented in this encounter Care Teams Hydrotechnical Specialist Relationship Specialty Start Date End Date José Luis Roberts MD PCP - General Family Medicine 10/14/22 05/17/23 José Luis Roberts MD PCP - General Family Medicine 05/18/23 01/26/24 Unallocated, Johan Sierra MD [address] [place] [address] PCP - General Family Medicine 01/27/24 02/01/24 José Luis Roberts MD PCP - General Family Medicine 02/02/24 Adelaida Carrion NP Referring Physician Nurse Practitioner 10/14/22 Miriam Suarez DO [address] [place] [address] Referring Physician Neurology 06/29/23 Mathew Parra LPN Registered Nurse Family Medicine 07/07/23 07/08/23 Mathew Parra LPN Licensed Practical Nurse Family Medicine 07/23/23 Diana De Leon LPN [address] [place] [address] Licensed Practical Nurse Family Medicine 12/18/2302/11 Adelaida Carrion NP [address] [place] [address] Nurse Practitioner Family Medicine 01/27/24 Bong Rosado, [place] [address] [place] [address] Family Medicine 02/12/24 11/29/24 Juany Leggett PA [address] [place] [address] Physician Social Worker Psychiatric Neurology 07/26/24 documented as of this encounter
--- OUTSIDE RECORDS SUMMARY | 2025-01-18 08:42 | XMS_ITS | Encounter Summary ---
Author Organization [facility] Address [address] [place] [address] Care Team Providers Care Pharmacy Informaticist Name Role Phone Miriam Suarez DO Unavailable [phone] Adelaida Carrion NP Unavailable [phone] José Luis Roberts MD Primary Care Provider Bong Rosado MA Unavailable [phone] Juany Leggett Unavailable Encounter Details Date Type Department Care Team (Late st Contact Info) Description 08/08/2024 Abstract [facility] [address] [place] [address] José Luis Roberts MD [address] [place] [address] Social History Tobacco Use Types [...] How often do you attend sikh or gnosticist serv ices? Never 08/16/2023 Do [...] Recorded Patient Health Questionnaire-2 Score 2 09/21/2023 [facility]at ional [...] documented as of this encounter Care Teams Pharmacy Informaticist Relationship Specialty Start Date End Date José Luis Roberts MD [address] [facility] PCP - General Family Medicine 02/02/24 Miriam Suarez DO [address] [place] [address] Referring Physician Neurology 06/29/23 Adelaida Carrion NP [address] [facility] Nurse Practitioner Family Medicine 01/27/24 Bong Rosado, [place] [address] [place] [address] Family Medicine 02/12/24 11/29/24 Juany Leggett PA [address] [place] [address] Physician Assembly Cleaner Neurology 07/26/24 documented as of this encounter
--- OUTSIDE RECORDS SUMMARY | 2025-01-18 08:42 | XMS_ITS | Encounter Summary ---
Author Organization [facility] Address [address] [facility] [place] [address] Care Team Providers Care Chief Cardiopulmonary Technologist Name Role Phone Adelaida Cariron NP Unavailable [phone] José Luis Roberts MD Primary Care Provider [phone] José Luis Roberts MD Primary Care Provider +-[phone] Miriam Suarez DO Unavailable [phone] Aida, Ardana AUTO BODY STRAIGHTENER Unavailable Unavailable Aida Ardana AUTO BODY STRAIGHTENER Unavailable Unavailable Diana De Leon AUTO BODY STRAIGHTENER Unavailable Unallocated, Noms Provider Primary Care Provi kellee Adelaida Carrion HEAD MIXER Unavailable [phone] José Luis Roberts MD Primary Care Provider +[phone] Bong Rosado MA Unavailable [phone] Juany Leggett Unavailable Encounter Details Date Type Department Care Team (Late st Contact Info) Description 01/23/2023 Abstract [facility] [address] [place] [address] Travon Hines PA [address] [place] [address] Social History Tobacco Use Types [...] on filedocumented in this encounter Care Teams Chief Cardiopulmonary Technologist Relationship Specialty Start Date End Date José Luis Roberts MD PCP - General Family Medicine 10/14/22 05/17/23 José Luis Roberts MD PCP - General Family Medicine 05/18/23 01/26/24 Unallocated, Johan Sierra MD [address] [place] [address] PCP - General Family Medicine 01/27/24 02/01/24 José Luis Roberts MD PCP - General Family Medicine 02/02/24 Adelaida Carrion NP Referring Physician Nurse Practitioner 10/14/22 Miriam Suarez DO [address] [place] [address] Referring Physician Neurology 06/29/23 Mathew Parra LPN Registered Nurse Family Medicine 07/07/23 07/08/23 Mathew Parra LPN Licensed Practical Nurse Family Medicine 07/23/23 Diana De Leon LPN [address] [place] [address] Licensed Practical Nurse Family Medicine 12/18/2302/11 Adelaida Carrion NP [address] [place] [address] Nurse Practitioner Family Medicine 01/27/24 Bong Rosado, [place] [address] [place] [address] Family Medicine 02/12/24 11/29/24 Juany Leggett PA [address] [place] [address] Physician Maxillofacial Pathology Neurology 07/26/24 documented as of this encounter
--- OUTSIDE RECORDS SUMMARY | 2025-01-18 08:42 | XMS_ITS | Encounter Summary ---
Author Organization [facility] Address [address] [place] [address] Care Team Providers Care Monomer Purification Operator Name Role Phone Miriam Suarez Unavailable [phone] Adelaida Carrion NP Unavailable [phone] José Luis Roberts MD Primary Care Provider Bong Rosado MA Unavailable [phone] Juany Leggett Unavailable Encounter Details Date Type Department Care Team (Late st Contact Info) Description 10/10/2024 Abstract [facility] [address] [place] [address] Adelaida Carrion, BRIANA [address] [place] [address] Social History Tobacco Use Types Packs/Day Years [...] How often do you attend restorationism or orthodox serv ices? Never 08/16/2023 Do [...] documented as of this encounter Care Teams Monomer Purification Operator Relationship Specialty Start Date End Date José Luis Roberts MD [address] [place] [address] PCP - General Family Medicine 02/02/24 Miriam Suarez DO [address] [place] [address] Referring Physician Neurology 06/29/23 Adelaida Carrion NP [address] [place] [address] Nurse Practitioner Family Medicine 01/27/24 Bong Rosado, [place] [address] [place] [address] Family Medicine 02/12/24 11/29/24 Juany Leggett PA [address] [place] [address] Physician Investigations Manager Neurology 07/26/24 documented as of this encounter
--- OUTSIDE RECORDS SUMMARY | 2025-01-18 08:42 | XMS_ITS | Encounter Summary ---
Author Organization [facility] Address [address] [place] [address] Care Team Providers Care Television Production Clerk Name Role Phone Miriam Suarez DO Unavailable [phone] Adelaida Carrion NP Unavailable [phone] José Luis Roberts MD Primary Care Provider [phone] Bong Rosado MA Unavailable [phone] Juany Leggett Unavailable Encounter Details Date Type Department Care Team (Late st Contact Info) Description 03/08/2024 Orders Only [facility] [address] [place] [address] Dennis Steel DO Social History [...] How often do you attend confucianism or mandaeism serv ices? Never 08/16/2023 Do [...] Modality Brain Magnetic Resonan ce us Dennis Kapler DO IMG MRI PROCEDURES Final Result * [...] documented as of this encounter Care Teams Television Production Clerk Relationship Specialty Start Date End Date José Luis Roberts MD [address] [place] [address] PCP - General Family Medicine 02/02/24 Miriam Suarez DO [address] [place] [address] Referring Physician Neurology 06/29/23 Adelaida Carrion NP [address] [place] [address] Nurse Practitioner Family Medicine 01/27/24 Bong Rosado MA [address] [place] [address] Family Medicine 02/12/24 11/29/24 Juany Leggett PA [address] [place] [address] Physician Rehab Rn Neurology 07/26/24 documented as of this encounter
--- OUTSIDE RECORDS SUMMARY | 2025-01-18 08:42 | XMS_ITS | Encounter Summary ---
Author Organization [facility] Address [address] [place] [address] Care Team Providers Care Nut Dehydrator Operator Name Role Phone DanielaSaurav baezakayleen GRAHAM Unavailable [phone] Adelaida Carrion NP Unavailable [phone] José Luis Roberts MD Primary Care Provider Bong Rosado MA Unavailable [phone] Juany Leggett Unavailable Encounter Details Date Type Department Care Team (Late st Contact Info) Description 10/13/2024 Orders Only [facility] [address] [place] [address] Adelaida Carrion, PRECAST CONCRETE IRONWORKER [address] [place] [address] Social History Tobacco Use Types Packs/Day Years [...] How often do you attend sikhism or amish serv ices? Never 08/16/2023 Do [...] Recorded Patient Health Questionnaire-2 Score 2 09/21/2023 [facility] of Occupat ional Health - Occupational Stress [...] Modality Radiographic Nelda ging us Adelaida Carrion PRECAST CONCRETE IRONWORKER IMG XR PROCEDURES Final Result documented in this encounter Visit Diagnoses Not on filedocumented in this encounter Additional Health Concerns Assessment Noted Time PHQ-9 Depression Total Score: 8 05/18/19 24 5:00 PM EST documented as of this encounter Care Teams Nut Dehydrator Operator Relationship Specialty Start Date End Date José Luis Roberts MD [address] [place] [address] PCP - General Family Medicine 02/02/24 Miriam Suarez DO [address] [place] [address] Referring Physician Neurology 06/29/23 Adelaida Carrion NP [address] [place] [address] Nurse Practitioner Family Medicine 01/27/24 Bong Rosado MA [address] [place] [address] Family Medicine 02/12/24 11/29/24 Juany Leggett PA [address] [place] [address] Physician Net Web Application Developer Neurology 07/26/24 documented as of this encounter
--- OUTSIDE RECORDS SUMMARY | 2025-01-18 08:42 | XMS_ITS | Encounter Summary ---
Author Organization [facility] Address [address] [place] [address] Care Team Providers Care Territory Outside Sales Manager Name Role Phone Saurav Suarezkayleen GRAHAM Unavailable [phone] Adelaida Carrion NP Unavailable [phone] José Luis Roberts MD Primary Care Provider Bnog Rosado MA Unavailable [phone] Juany Leggett Unavailable Encounter Details Date Type Department Care Team (Late st Contact Info) Description 03/17/2024 Orders Only [facility] [address] [place] [address] Adelaida Carrion, AUTOMOBILE OR TRUCK RENTAL DISPATCHER [address] [place] [address] Social History Tobacco Use Types Packs/Day Years [...] How often do you attend pentecostalism or taoism serv ices? Never 08/16/2023 Do [...] Recorded Patient Health Questionnaire-2 Score 2 09/21/2023 [facility] of Occupat ional Health - Occupational Stress [...] lead (03/17/2024 9:17 AM EST) us Adelaida Aichholz AUTOMOBILE OR TRUCK RENTAL DISPATCHER ECG ORDERABLES Final Result documented in this encounter Visit Diagnoses Not on filedocumented in this encounter Additional Health Concerns Assessment Noted Time PHQ-9 Depression Total Score: 8 05/18/19 24 5:00 PM EST documented as of this encounter Care Teams Territory Outside Sales Manager Relationship Specialty Start Date End Date José Luis Roberts MD [address] [place] [address] PCP - General Family Medicine 02/02/24 Miriam Suarez DO [address] [place] [address] Referring Physician Neurology 06/29/23 Adelaida Carrion NP [address] [place] [address] Nurse Practitioner Family Medicine 01/27/24 Bong Rosado MA [address] [place] [address] Family Medicine 02/12/24 11/29/24 Juany Leggett PA [address] [place] [address] Physician Toy Painter Neurology 07/26/24 documented as of this encounter
--- OUTSIDE RECORDS SUMMARY | 2025-01-18 08:42 | XMS_ITS | Clinical Summary ---
Author Organization [facility] Address [address] [place] [address] Care Team Providers Care Plumbing Drafter Name Role Phone Miriam Suarez DO Unavailable [phone] Adelaida Carrion SUPPLY CHAIN ASSISTANT Unavailable [phone] José Luis Roberts MD Primary Care Provider Juany Leggett Unavailable Allergies Active Allergy Reactions Criticality Noted Date Comments Eszopiclone Hallucinations,Anaph ylaxis High 09/21/2023 Altered mental status and non responsive Levetiracetam Hallucinations,Other Medium 12/12/2021 Milnacipran Hallucinations,Other ,Unknown Medium 12/12/2021 Other Other 12/12/2021 Penicillins Anaphylaxis High 12/12/2021 Prochlorperazine Unknown,Other Medium 12/12/2021 Tetracycline Hives,Unknown High 12/12/2021 Wound Dressing Adhesive Rash,Unknown Medium 09/19/2022 Medications Multiple Vitamins-Minerals (BARIATRIC MULTIVITAMINS/IRON PO) Pt taking OTC ([employer]) Active biotin 5 MG tablet Pt taking OTC ([employer]) Active Calcium Citrate-Vitamin D (CITRACAL + D PO) Pt taking OTC ([employer]) Active Magnesium 400 MG capsule Pt taking OTC([employer]) Active traZODone (Desyrel) 150 MG tablet Take [...] 25 025 Discontinu ed(Therapy completed) HYDROcodone-acetam inophen ([place]) 5-325 MG tabletIndications: Primary osteoarthritis of right [...] Assessment & Plan (10/13/2024 9:04 AM EDT): [place] to be related to not using PAP [...] the ECHO on file from 05/10/2019 at [facility], as well as ECHO report from [facility] [...] flu shot 01/28/2024 AVM (arteriovenous malformation) brain ([facility]) 10/11/2023 Vascular malformation ([facility]) 10/11/2023 Brain lesion 10/11/2023 Carpal tunnel syndrome, [...] 1 twice a day #14 pills, Lot [id number], exp 06/29 Acute cough 07/14/2023 10/21/2023 Assessment & Plan (08/17/2023 10:06 AM EDT): resolved Influenza 07/14/2023 10/21/2023 Acute cystitis with hematuria 05/21/2023 10/21/2023 Right sided weakness 05/18/2023 024 Hemorrhoid 05/18/2023 03/16/2024 Overview (05/18/2023): int/external hemorrhoids Brain vascular malformation ([facility]) 05/18/2023 03/16/2024 Constipation 05/18/2023 08/17/2023 Colon polyps [...] of the risks of continued smoking: stroke, [place], all forms of cancer, lung disease, and [...] 10:00 AM EDT Office Visit [facility] [place] [facility] [address] [place] [address] Moses Stone PA Status post arthroscopic surgery of right knee (Primary Dx) 12/26/2024 Bamboo flowsheet [facility] [place] [facility] [address] [place] [address] Moses Stone PA 12/26/2024 Travel 12/14/2024 Orders Only [facility] [address] [place] [phone] Harrison Hoyos DO Primary osteoarthritis of right knee (Primary Dx) 11/23/2024 Clinisync Result Encounter [facility] External Department Unsolicited Provider, Generic External Data 11/23/2024 Clinisync Result Encounter NOMS External Department Unsolicited Harrison Hoyos DO 11/23/2024 Clinisync Result Encounter NOMS External Department Unsolicited Adelaida Carrion NP 11/18/2024 10:15 AM EDT Office Visit [facility] [place] [facility] [address] [place] [address] Harrison Hoyos DO Acute medial meniscus tear of right knee, initial encounter (Primary Dx); Chronic pain of right knee; Morbid obesity (CMS-HCC); Primary osteoarthritis of right knee; Preoperative testing 11/18/2024 Bamboo flowsheet [facility] [place] [facility] [address] [place] [address] Harrison Hoyos DO 11/18/2024 Travel 11/17/2024 8:45 AM EDT Ancillary Procedure [facility] [place] [facility] [address] [place] [address] 11/17/2024 Travel 11/16/2024 Abstract [facility] [address] [place] [address] Adelaida Carrion NP 11/14/2024 10:30 AM EDT Procedure Visit [facility] [address] [place] [address] Adelaida Carrion NP Well woman exam with routine gynecological exam (Primary Dx); Morbid (severe) obesity due to excess calories ([facility]); Primary hypertension ; Anemia, unspecified type; Bilateral lower extremity edema; Osteoporosis, unspecified osteoporosis type, unspecified pathological fracture presence ; Chronic kidney disease, stage 3a ([facility]); Pre-diabetes 11/14/2024 Clinisync Result Encounter NOMS External Department Unsolicited Adelaida Carrion NP 11/14/2024 Bamboo flowsheet [facility] [address] [place] [address] Adelaida Carrion NP 11/11/2024 Travel 10/28/2024 Telephone [facility] [address] [place] [address] Harrison Hoyos DO New Med Request (MRI - Right knee - patient is claustrophobic and requests medication for testing uses Pavan Rodas Fanta ) 10/27/2024 10:15 AM EDT Office Visit [facility] [place] [facility] [address] [place] [address] Harrison Hoyos DO Right knee pain, unspecified chronicity (Primary Dx); Primary osteoarthritis of right knee; Morbid obesity ([facility]) 10/27/2024 8:20 AM EDT Ancillary Procedure [facility] [place] [facility] [address] [place] [address] 10/27/2024 Travel 10/24/2024 [facility] [address] [facility] [place] [address] Adelaida Carrion NP from Last 3 Months [...] How often do you attend yazidi or hindu serv ices? Never 08/16/2023 Do [...] 12/26/2024 9:40 AM EDT Plan of Treatment Not on file Procedures Procedure Name Priority Date/Time Associated Diagnosis Comments MR LUMBAR SPINE WO CON 11/23/2024 1:28 PM EDT XR CHEST 2V 11/23/2024 12:51 PM EDT TB[facility] VITAMIN D 25 [place] Routine 11/23/2024 8 :51 AM EDT ALL LIPID PROFILE (FASTING) Routine 11/23/2024 8:51 AM EDT [facility] CMP (CMP) (FOR REMOTE [facility] USE) Routine 11/23/2024 8:51 AM EDT ALL [...] DENSITY Routine 10/24/2024 1:1 7 PM EDT from Last 3 Months Results * MR LUMBAR SPINE WO CON (11/23/2024 1:28 PM EDT) Anatomical Region Laterality Modality Other 11/23/2024 1:28 PM EDT Narrative 11/23/2024 1:30 PM EDT The [address] [address] Magnetic Resonance Report Signed Patient: NASIM BE MR#: [id number] : 1960 Acct:[id number] Age/Sex: 63 / F ADM Date: 11/23/24 Loc: MRI Attending Dr: Elizabeth Culp NP Ordering Physician: Elizabeth Culp NP Date of Service: 11/23/24 Procedure(s): MR lumbar spine wo con Accession Number(s): [id number] cc: Adelaida Carrion NP; Elizabeth Culp NP [place] [id number] Patient Name: NASIM BE MRN: [id number] date: 1960 Sex: F Assigned Patient Location: MRI Current Patient Location: MRI Accession/Order Number: [id number] Exam Date: 11/23/2024 12:59 Report Date: 11/23/2024 [...] noted. There is moderate central canal narrowing. Rhkh-pl-almetdob neural foraminal narrowing. L4-5: Circumferential disc bulge with small right subarticular zone T2 hyperintensity and protrusion questionably contacting the right traversing L5 nerve root. No high-grade mass effect or displacement on the L5 nerve root identified. Otherwise moderate foraminal narrowing. Advanced facet arthropathy. Dtwk-mq-owoolkaj central canal stenosis. L5-S1: Disc desiccation with [...] Calderon M.D. 11/23/2024 1:28 PM Dictation Location: [place] [address] Electronically authenticated by: [id number] Y Date: 11/23/2024 13:28 Dictated By: Omar Calderon M.D. Signed By: 11/23/24 1330 DD/ 1328 TD/TT: Patient Access: Procedure Note Radiology, Radiologist, MD - 11/23/2024 [place] [address] Magnetic Resonance Report Signed Patient: NASIM BE LMR#: [id number] : 1960cct:[id number] Age/Sex: 63 / FADM Date: 11/23/24 Loc: MRI Attending Dr: Elizabeth Culp NP Ordering Physician: Elizabeth Culp NP Date of Service: 11/23/24 Procedure(s): MR lumbar spine wo con Accession Number(s): [id number] cc: Adelaida Carrion NP; Elizabeth Culp NP [place] [address] Patient Name: NASIM BE MRN: [id number] date: 1960 Sex: F Assigned Patient Location: MRI Current Patient Location: MRI Accession/Order Number: [id number] Exam Date: 11/23/2024 12:59 Report Date: 11/23/2024 [...] noted. There is moderate central canal narrowing. Wkyt-id-lgxcsvnx neural foraminal narrowing. L4-5: Circumferential disc bulge with small right subarticular zone T2 hyperintensity and protrusion questionably contacting the right traversingL5 nerve root. No high-grade mass effect or displacement on the L5 nerveroot identified. Otherwise moderate foraminal narrowing. Advanced facet arthropathy. Bugt-rl-lonyvjwy central canal stenosis. L5-S1: Disc desiccation with [...] Calderon M.D. 11/23/2024 1:28 PM Dictation Location: [place] [address] Electronically authenticated by: [id number] Y Date: 3:28 Dictated By: Omar Calderon M.D. Signed By:11/23/24 1557 DD/ 1328 TD/TT: Patient Access: us Generic External Data Provider [facility] Final Result * XR CHEST 2V (11/23/2024 12:51 PM EDT) Anatomical Region Laterality Modality Other 11/23/2024 12:5 1 PM EDT Narrative 11/23/2024 12:54 [place] [address] XRay Report Signed Patient: NASIM BE MR#: [id number] : 1960 Acct:[id number] Age/Sex: 63 / F ADM Date: 11/23/24 Loc: RAD Attending Dr: HARRISON HOYOS Ordering Physician: HARRISON HOYOS Date of Service: 11/23/24 Procedure(s): XR chest 2V Accession Number(s): [id number] cc: Adelaida Carrion NP; HARRISON HOYOS The [place] [address] Patient Name: NASIM BE MRN: [id number] date: 1960 Sex: F Assigned Patient Location: [facility] Current Patient Location: MRI Accession/Order Number: [id number] Exam Date: 11/23/2024 12:50 Report Date: 11/23/2024 12:51 At the request of: HARRISON HOYOS Procedure: XR chest 2V PA AND LATERAL CHEST: CLINICAL HISTORY: Pre Operative Testing COMPARISON: 07/24/2024 FINDINGS: Unremarkable cardiomediastinal. Lungs clear. No effusion or pneumothorax. XR/XR chest 2V IMPRESSION: NO ACUTE CARDIOPULMONARY ABNORMALITY. Impression dictated by: Omar Calderon M.D. 11/23/2024 12:51 PM Dictation Location: [place] [address] Electronically authenticated by: [id number] Y Date: 11/23/2024 12:51 Dictated By: Omar Calderon M.D. Signed By: 11/23/24 1254 DD/ 1251 TD/TT: Patient Access: Procedure Note Radiology, Radiologist, - 11/23/2024 [place] [address] XRay Report Signed Patient: NASIM BE LMR#: [id number] : 1960cct:[id number] Age/Sex: 63 / FADM Date: 11/23/24 Loc: RAD Attending Dr: HARRISON HOYOS Ordering Physician: HARRISON HOYOS Date of Service: 11/23/24 Procedure(s): XR chest 2V Accession Number(s): [id number] cc: Adelaida Carrion SUPPLY CHAIN ASSISTANT; HARRISON HOYOS [place] [id number] Patient Name: NASIM BE MRN: [id number] date: 1960 Sex: F Assigned Patient Location: RAD Current Patient Location: MRI Accession/Order Number: [id number] Exam Date: 11/23/2024 12:50 Report Date: 11/23/2024 12:51 At the request of: HARRISON HOYOS Procedure: XR chest 2V PA AND LATERAL CHEST: CLINICAL HISTORY: Pre Operative Testing COMPARISON: 07/24/2024 FINDINGS: Unremarkable cardiomediastinal. Lungs clear. No effusion or pneumothorax. XR/XR chest 2V IMPRESSION: NO ACUTE CARDIOPULMONARY ABNORMALITY. Impression dictated by: Omar Calderon M.D. 11/23/2024 12:51 PM Dictation Location: [place] [address] Electronically authenticated by: [id number] Y Date: 2:51 Dictated By: Omar Calderon M.D. Signed By:11/23/24 1254 DD/ 1251 TD/TT: Patient Access: Harrison Hoyos DO [facility] Final Result * TBH VITAMIN D 25 [place] (11/23/2024 8:51 AM EDT) VITAMIN D 36.6 ng/mL TBH Comment: <20 ng/mL Vit D deficient 20-<30 ng/mL Vit D insufficient 30-100 ng/mL Vit D sufficient >100 ng/mL Potential Toxicity 11/23/2024 8:51 AM EDT 11/23/2024 8:52 AM EDT Narrative [facility] - 11/23/2024 11:44 AM EDT us Adelaida Carrion NP [facility] Final Result [facility] * (ABNORMAL) [facility] CMP (CMP) (FOR REMOTE [facility] USE) (11/23/2024 8:51 AM EDT) SODIUM 140 136 - 145 mmol/L TBH POTASSIUM 4.7 3.5 - 5.1 mmol/L TBH CHLORIDE 105 98 - 107 mmol/L TBH CARBON DIOXIDE 28.7 21.0 - 32.0 mmol/L TBH ANION GAP 11.0 TBH GLUCOSE 98 74 - 106 mg/dL TBH BLOOD UREA NITROGEN 16.0 7.0 - 18.0 mg/dL TBH CREATININE 1.13(H) 0.55 - 1.02 mg/dL TBH TBH EGFR-AF CHADIAN 59(L) >=60 mL/min/1. 73m 2 TBH TBH EGFR-NON AF CHADIAN 49(L) >=60 mL/min/1. 73m 2 TBH BUN [...] 3.8 g/dL TBH ALBUMIN GLOBULIN RATIO 1.0 TBH 11/23/2024 8:51 AM EDT 11/23/2024 8:52 AM EDT Narrative [facility] - 11/23/2024 10:12 AM EDT us Adelaida Carrion NP [facility] Final Result [facility] * (ABNORMAL) ALL LIPID PROFILE (FASTING) (11/23/2024 [...] Narrative [facility] - 11/23/2024 10:12 AM EDT us Adelaida Carrion NP [facility] Final Result [facility] * ALL CBC WITH AUTO DIFF (11/23/2024 8:51 AM EDT) Pathologist [facility] TBH WBC 8.3 4.0 - 11.0 10 3/uL TBH TBH RBC 4.33 4.20 - 5.40 10 6/uL TBH TBH HGB 12.3 12.0 - 16.0 g/dL TB TBH HCT 37.9 36.0 - 48.0 % TBH TBH MCV 87.5 81.0 - 99.0 fL TB TBH MCH 28.4 26.7 - 34.0 pg [...] us Adelaida Carrion NP [facility] Final [facility] * [facility] UA (CLEAN/CATCH) MICROSCOPIC IF INDICATE [...] Narrative [facility] - 11/23/2024 9:30 AM EDT us Adelaida Carrion SUPPLY CHAIN ASSISTANT [facility] Final Result [facility] TB * TBH MICROALB CREAT RATIO RANDOM (11/23/2024 8:31 AM EDT) MICROALBUMIN URINE RANDOM <1.3 <=30.0 mg/dL TBH CREATININE URINE RANDOM 94.24 20.00 - 300.00 mg/dL TBH 11/23/2024 8:31 AM EDT 11/23/2024 8:52 AM EDT Narrative [facility] - 11/23/2024 9:17 AM EDT Adelaida Sousabob SUPPLY CHAIN ASSISTANT [facility] Final Result Performing Organization Address [facility] Co de Phone Number [facility] * MR knee right wo IV contrast (11/17/2024 10:04 AM EDT) Anatomical Region Laterality Modality Lower Extremities, Knee Right Magnetic Resonance 11/17/2024 3:24 PM EDT Impressions 11/17/2024 3:31 PM EDT Medial and lateral meniscal tears. Osteoarthritis as discussed. ELECTRONICALLY SIGNED BY: Te Cardenas MD Narrative 11/17/2024 3:31 PM EDT EXAMINATION/TECHNIQUE: MR KNEE [...] discussed. ELECTRONICALLY SIGNED BY: Te Cardenas MD Harrison Hoyos DO [facility] [place] MRI PROCEDURES Final Result * IGP,APTIMA HPV,AGE GDLN (11/14/2024 10:43 AM EDT) AGE GDLN ACOG TESTING Note . [facility] Comment: TESTS RESULT FLAG UNITS REF RANGE LAB Clinician Provided Cytology Information Source.............Cervix;Endocervix No. of containers..01 ThinPrep Vial Age Gigi WILDE Tona... 30 01 FLAG LEGEND: L-Low Normal,H-High Normal,LL-Alert Low,HH-Alert High <-Panic Low,>-Panic High,A-Abnormal,AA-Critical Abnormal Performed at: 01 [facility] [place] [address] Farzana Hennessy MD, IGP, APTIMA HPV, RFX 16/18,45 Note . [facility] Comment: TESTS RESULT FLAG UNITS REF RANGE LAB DIAGNOSIS: 02 NEGATIVE FOR INTRAEPITHELIAL LESION OR MALIGNANCY. CELLULAR CHANGES ASSOCIATED WITH ATROPHY ARE PRESENT. Specimen adequacy: 02 Satisfactory for evaluation. Endocervical component may not be distinguished in cases of atrophy. Performed by: 02 Adela Acosta Presto Log Operator (ASCP) . 02 Note: Note 02 The [...] <-Panic Low,>-Panic High,A-Abnormal,AA-Critical Abnormal Performed at: 02 [facility] [address] Farzana Hennessy MD, HPV APTIMA Negative Negative [facility] Comment: This nucleic acid amplification test detects fourteen high- risk HPV types (16,18,31,33,35,39,45,51,52,56,58,59,66,68) without differentiation. Performed at: =[facility] [id number] Outdoor Landscape Architect: Farzana Hennessy MD, Phone: [phone] Performed at: [facility] [id number] Outdoor Landscape Architect: Farzana Hennessy MD, Phone: [phone] 11/14/2024 10:4 3 AM EDT 11/14/2024 9:40 PM EDT Narrative [facility] - 11/17/2024 11:13 AM EDT BRUSH-SPATULA CERVIX ENDOCERVIX us Adelaida Carrion NP LAB BLOOD ORDERABLES Final Resu lt [facility] * XR knee 3 views right [...] Difficult to define what this procedure was. us Harrison Hoyos DO IMG XR PROCEDURES Final Result * DEXA bone density (10/24/2024 1:17 PM EDT) Anatomical Region Laterality Modality Body Radiographic Nelda ging us Adelaida Carrion SUPPLY CHAIN ASSISTANT IMG DXA PROCEDURES Final Result from Last 3 Months Insurance [employer] MEDICARE Advance Directives Documents on File Type Date Recorded Patient Administrative Support Assoc Expl anation Power of [employer] 03/16/2024 9:42 AM darian r of corporate attorney Power of [employer] 03/10/2024 3:12 PM POA Care Teams Plumbing Drafter Relationship Specialty Start Date End Date José Luis Roberts MD [address] [place] [address] PCP - General Family Medicine 02/02/24 Miriam Suarez DO [address] [place] [address] Referring Physician Neurology 06/29/23 Adelaida Carrion NP [address] [place] [address] Nurse Practitioner Family Medicine 01/27/24 Juany Leggett PA [address] [facility] [address] [place] [address] Physician Enzyme Chemist Neurology 07/26/24
--- OUTSIDE RECORDS SUMMARY | 2025-01-18 08:42 | XMS_ITS | Encounter Summary ---
Author Organization [facility] Address [address] [place] [address] Care Team Providers Care Restaurant Delivery Driver Name Role Phone Adelaida Carrion NP Unavailable [phone] José Luis Roberts MD Primary Care Provider Miriam Suarez DO Unavailable [phone] Mathew Parra PRINCIPAL TECHNOLOGIST Unavailable Unavailable Diana De Leon PRINCIPAL TECHNOLOGIST Unavailable Unallocated, Noms Provider Primary Care Provi kellee Adelaida Carrion NP Unavailable [phone] José Luis Roberts MD Primary Care Provider [phone] Bong Rosado MA Unavailable [phone] Juany Leggett Unavailable Encounter Details Date Type Department Care Team (Late st Contact Info) Description 07/14/2023 Orders Only [facility] [address] [place] [address] Adelaida Carrion NP [address] [place] [address] Social History Tobacco Use Types [...] Never 05/18/2023 How often do you attend faith or christian serv ices? Never 05/18/2023 Do you belong [...] Recorded Patient Health Questionnaire-2 Score 0 07/07/2023 [facility] [place] of Occupat ional Health - Occupational Stress [...] Modality Chest Radiographic Nelda ging Adelaida Carrion RAFTSMAN IMG XR PROCEDURES Final Result documented in this encounter Visit Diagnoses Not on filedocumented in this encounter Additional Health Concerns Assessment Noted Time PHQ-9 Depression Total Score: 8 05/18/19 24 5:00 PM EST documented as of this encounter Care Teams Restaurant Delivery Driver Relationship Specialty Start Date End Date José Luis Roberts MD PCP - General Family Medicine 05/18/23 01/26/24 Unallocated, Johan Sierra MD [address] [place], [place] [id number] PCP - General Family Medicine 01/27/24 02/01/24 José Luis Roberts MD PCP - General Family Medicine 02/02/24 Adelaida Carrion NP Referring Physician Nurse Practitioner 10/14/22 Miriam Suarez DO [address] [place] [address] Referring Physician Neurology 06/29/23 Mathew Parra LPN Licensed Practical Nurse Family Medicine 07/23/23 Diana De Leon LPN [address] [place] [address] Licensed Practical Nurse Family Medicine 12/18/2302/11 Adelaida Carrion NP [address] [facility] [address] Nurse Practitioner Family Medicine 01/27/24 Bong Rosado, CT [address] [place] [address] Family Medicine 02/12/24 11/29/24 Juany Leggett PA [address] [facility] [address] [place] [address] Physician Industrial Safety And Health Manager Neurology 07/26/24 documented as of this encounter
--- OUTSIDE RECORDS SUMMARY | 2025-01-18 08:43 | XMS_ITS | Encounter Summary ---
Author Organization [facility] Address [address] [place] [address] Care Team Providers Care Human Resources Supervisor Name Role Phone Adelaida Carrion NP Unavailable [phone] José Luis Roberts MD Primary Care Provider [phone] José Luis Roberts MD Primary Care Provider [phone] Miriam Suarez DO Unavailable [phone] [place], Ardana ELECTRIC WELL LOGGING OPERATOR Unavailable Unavailable Aida Ardana ELECTRIC WELL LOGGING OPERATOR Unavailable Unavailable Diana De Leon ELECTRIC WELL LOGGING OPERATOR Unavailable Unallocated, Noms Provider Primary Care Provi kellee Adelaida Carrion NP Unavailable [phone] José Luis Roberts MD Primary Care Provider [phone] Bong Rosado MA Unavailable [phone] Juany Leggett Unavailable Encounter Details Date Type Department Care Team (Late st Contact Info) Description 03/25/2023 Abstract [facility] [address] [place] [address] Adelaida Carrion NP [address] [place] [address] Social History Tobacco Use Types Packs/Day Years [...] on filedocumented in this encounter Care Teams Human Resources Supervisor Relationship Specialty Start Date End Date José Luis Roberts MD PCP - General Family Medicine 10/14/22 05/17/23 José Luis Roberts MD PCP - General Family Medicine 05/18/23 01/26/24 Unallocated, Noms MD Mariela [address] [place] [address] PCP - General Family Medicine 01/27/24 02/01/24 José Luis Roberts MD PCP - General Family Medicine 02/02/24 Adelaida Carrion NP Referring Physician Nurse Practitioner 10/14/22 Miriam Suarez DO [address] [place] [address] Referring Physician Neurology 06/29/23 Mathew Parra LPN Registered Nurse Family Medicine 07/07/23 07/08/23 Mathew Parra LPN Licensed Practical Nurse Family Medicine 07/23/23 Diana De Leon, ADRIAN [address] [place] [address] Licensed Practical Nurse Family Medicine 12/18/2302/11 Adelaida Carrion NP [address] [place] [address] Nurse Practitioner Family Medicine 01/27/24 Bong Rosado, [place] [address] [place] [address] Family Medicine 02/12/24 11/29/24 Juany Leggett PA [address] [place] [address] Physician Gear Hobber Neurology 07/26/24 documented as of this encounter
--- OUTSIDE RECORDS SUMMARY | 2025-01-18 08:43 | XMS_ITS | Encounter Summary ---
Author Organization [facility] Address [address] [place] [address] Care Team Providers Care Security Guards Dispatcher Name Role Phone Adelaida Carrion NP Unavailable [phone] José Luis Roberts MD Primary Care Provider Miriam Suarez DO Unavailable [phone] Mathew Parra AWAKE OVERNIGHT MONITOR Unavailable Unavailable Diana De Leon AWAKE OVERNIGHT MONITOR Unavailable Unallocated, Noms Provider Primary Care Provi kellee Adelaida Carrion NP Unavailable [phone] José Luis Roberts MD Primary Care Provider [phone] Bong Rosado MA Unavailable [phone] Juany Leggett Unavailable Encounter Details Date Type Department Care Team (Late st Contact Info) Description 08/25/2023 Orders Only [facility] [address] [place] [address] Adelaida Carrion NP [address] [place] [address] Social History Tobacco Use Types [...] How often do you attend advent or samaritan serv ices? Never 08/16/2023 Do [...] Recorded Patient Health Questionnaire-2 Score 0 08/17/2023 [facility] [place] of Occupat ional Health - Occupational [...] Report (08/24/2023 8:39 AM EDT) Adelaida Carrion WEED SCIENCE RESEARCH TECHNICIAN IN CLINIC/BEDSIDE ORDERABLES Fi nal Result documented in this encounter Visit Diagnoses Not on filedocumented in this encounter Additional Health Concerns Assessment Noted Time PHQ-9 Depression Total Score: 8 05/18/19 5:00 PM EST documented as of this encounter Care Teams Security Guards Dispatcher Relationship Specialty Start Date End Date José Luis Roberts MD PCP - General Family Medicine 05/18/23 01/26/24 Unallocated, Noms Provider, [address] [place] [address] PCP - General Family Medicine 01/27/24 02/01/24 José Luis Roberts MD PCP - General Family Medicine 02/02/24 Adelaida Carrion NP Referring Physician Nurse Practitioner 10/14/22 Miriam Suarez DO [address] [place] [address] Referring Physician Neurology 06/29/23 Mathew Parra LPN Licensed Practical Nurse Family Medicine 07/23/23 Diana De Leon LPN [address] [place] [address] Licensed Practical Nurse Family Medicine 12/18/2302/11 Adelaida Carrion NP [address] [place] [address] Nurse Practitioner Family Medicine 01/27/24 Bong Rosado MA [address] [place] [address] Family Medicine 02/12/24 11/29/24 Juany Leggett PA [address] [place] [address] Physician Bellperson Neurology 07/26/24 documented as of this encounter
--- OUTSIDE RECORDS SUMMARY | 2025-01-18 08:43 | XMS_ITS | Encounter Summary ---
Author Organization [facility] Address [address] [place] [address] Care Team Providers Care Framing Machine Tender Name Role Phone Adelaida Carrion NP Unavailable [phone] José Luis Roberts MD Primary Care Provider [phone] Miriam Suarez DO Unavailable [phone] Mathew Parra FAMILY LAWYER Unavailable Unavailable Diana De Leon FAMILY LAWYER Unavailable Unallocated, Noms Provider Primary Care Provi kellee Adelaida Carrion NP Unavailable [phone] José Luis Roberts MD Primary Care Provider [phone] Bong Rosado MA Unavailable [phone] Juany Leggett Unavailable Encounter Details Date Type Department Care Team (Late st Contact Info) Description 08/26/2023 Orders Only [facility] [address] [facility] [place] [address] Arsalan Hagen MD [facility] [address] [address] Social History Tobacco Use Types [...] How often do you attend holiness or buddhist serv ices? Never 08/16/2023 Do [...] Patient Health Questionnaire-2 Score 0 08/17/2023 [facility] of Occupat ional Health - Occupational Stress [...] documented as of this encounter Care Teams Framing Machine Tender Relationship Specialty Start Date End Date José Luis Roberts MD PCP - General Family Medicine 05/18/23 01/26/24 Unallocated, Johan Sierra MD [address] [place] [address] PCP - General Family Medicine 01/27/24 02/01/24 José Luis Roberts MD PCP - General Family Medicine 02/02/24 Adelaida Carrion NP Referring Physician Nurse Practitioner 10/14/22 Miriam Suarez DO [address] [place] [address] Referring Physician Neurology 06/29/23 Mathew Parra LPN Licensed Practical Nurse Family Medicine 07/23/23 Diana De Leon LPN [address] [place] [address] Licensed Practical Nurse Family Medicine 12/18/2302/11 Adelaida Carrion NP [address] [place] [address] Nurse Practitioner Family Medicine 01/27/24 Bong Rosado MA [address] [place], [place] [address] Family Medicine 02/12/24 11/29/24 Juany Leggett PA [address] [place] [address] Physician Manager General Neurology 07/26/24 documented as of this encounter
--- OUTSIDE RECORDS SUMMARY | 2025-01-18 08:43 | XMS_ITS | Encounter Summary ---
Author Organization [facility] Address [address] [place] [address] Care Team Providers Care Multifocal Lens Assembler Name Role Phone Adelaida Carrion NP Unavailable [phone] José Luis Roberts MD Primary Care Provider Miriam Suarez DO Unavailable [phone] Mathew Parra MATERIAL HANDLING EQUIPMENT STEVEDORE Unavailable Unavailable Diana De Leon LPN Unavailable Unallocated, Noms Provider Primary Care Provi kellee Adelaida Carrion NP Unavailable [phone] José Luis Roberts MD Primary Care Provider [phone] Bong Rosado MA Unavailable [phone] Juany Leggett Unavailable Encounter Details Date Type Department Care Team (Late st Contact Info) Description 09/01/2023 Orders Only [facility] [address] [place] [address] Shaikh Alberto MD [address] [place] [address] Social History Tobacco Use Types [...] How often do you attend advent or mormonism serv ices? Never 08/16/2023 Do [...] Recorded Patient Health Questionnaire-2 Score 0 08/17/2023 [facility] of Occupat ional Health [...] documented as of this encounter Care Teams Multifocal Lens Assembler Relationship Specialty Start Date End Date José Luis Roberts MD PCP - General Family Medicine 05/18/23 01/26/24 Unallocated, Noms MD Mariela [address] [place] [address] PCP - General Family Medicine 01/27/24 02/01/24 José Luis Roberts MD PCP - General Family Medicine 02/02/24 Adelaida Carrion NP Referring Physician Nurse Practitioner 10/14/22 Miriam Suarez DO [address] [place] [address] Referring Physician Neurology 06/29/23 Mathew Parra LPN Licensed Practical Nurse Family Medicine 07/23/23 Diana De Leon LPN [address] [place] [address] Licensed Practical Nurse Family Medicine 12/18/2302/11 Adelaida Carrion NP [address] [place] [address] Nurse Practitioner Family Medicine 01/27/24 Bong Rosado, [place] [address] [place] [address] Family Medicine 02/12/24 11/29/24 Juany Leggett PA [address] [place] [address] Physician Shipping Order Clerk Neurology 07/26/24 documented as of this encounter
--- OUTSIDE RECORDS SUMMARY | 2025-01-18 08:43 | XMS_ITS | Encounter Summary ---
Author Organization [facility] Address [address] [place] [address] Care Team Providers Care Fire Watchman Name Role Phone Miriam Suarez Unavailable [phone] Adelaida Carrion NP Unavailable [phone] José Luis Roberts MD Primary Care Provider Bong Rosado MA Unavailable [phone] Juany Leggett Unavailable Encounter Details Date Type Department Care Team (Late st Contact Info) Description 11/16/2024 Abstract [facility] [address] [place] [address] Adelaida Carrion, BRIANA [address] [place] [address] Social History Tobacco Use Types Packs/Day Years [...] How often do you attend uatsdin or congregation serv ices? Never 08/16/2023 Do [...] 2 09/21/2023 [facility] [...] documented as of this encounter Care Teams Fire Watchman Relationship Specialty Start Date End Date José Luis Roberts MD [address] [place] [address] PCP - General Family Medicine 02/02/24 Miriam Suarez DO [address] [place] [address] Referring Physician Neurology 06/29/23 Adelaida Carrion NP [address] [place] [address] Nurse Practitioner Family Medicine 01/27/24 Bong Rosado, [place] [address] [place] [address] Family Medicine 02/12/24 11/29/24 Juany Leggett PA [address] [place] [address] Physician Flooring Salesperson Neurology 07/26/24 documented as of this encounter
--- OUTSIDE RECORDS SUMMARY | 2025-01-18 08:43 | XMS_ITS | Encounter Summary ---
Author Organization [facility] Address [address] [place] [address] Care Team Providers Care Gizzard Skin Remover Name Role Phone Adelaida Carrion NP Unavailable [phone] José Luis Roberts MD Primary Care Provider [phone] José Luis Roberts MD Primary Care Provider [phone] Miriam Suarez DO Unavailable [phone] Aida, Ardana SECURITY DISPATCHER Unavailable Unavailable Fran Parradana SECURITY DISPATCHER Unavailable Unavailable Diana De Leon SECURITY DISPATCHER Unavailable Unallocated, Noms Provider Primary Care Provi kellee Adelaida Carrion NP Unavailable [phone] José Luis Roberts MD Primary Care Provider [phone] Bong Rosado MA Unavailable [phone] Juany Leggett Unavailable Encounter Details Date Type Department Care Team (Late st Contact Info) Description 04/08/2023 Orders Only [facility] [address] [place] [address] Adelaida Carrion NP [address] [place] [address] Social History Tobacco Use Types Packs/Day Years [...] Test (03/23/2023 2:45 PM EST) Adelaida Carrion UTILITY WORKER ROLLER SH[facility] LAB BLOOD ORDERABLES Final Resu lt documented in this encounter Visit Diagnoses Not on filedocumented in this encounter Care Teams Gizzard Skin Remover Relationship Specialty Start Date End Date José Luis Roberts MD PCP - General Family Medicine 10/14/22 05/17/23 José Luis Roberts MD PCP - General Family Medicine 05/18/23 01/26/24 Unallocated, Familias MD Mariela [address] [place] [address] PCP - General Family Medicine 01/27/24 02/01/24 José Luis Roberts MD PCP - General Family Medicine 02/02/24 Adelaida Carrion NP Referring Physician Nurse Practitioner 10/14/22 Miriam Suarez DO [address] [place] [address] Referring Physician Neurology 06/29/23 Mathew Parra LPN Registered Nurse Family Medicine 07/07/23 07/08/23 Mathew Parra LPN Licensed Practical Nurse Family Medicine 07/23/23 [place] L[place] [address] [place] [address] Licensed Practical Nurse Family Medicine 12/18/2302/11 Adelaida Carrion NP [address] [place] [address] Nurse Practitioner Family Medicine 01/27/24 Bong Rosado, [place] [address] [place] [address] Family Medicine 02/12/24 11/29/24 Juany Leggett PA [address] [place], [place] [address] Physician Airplane Pilot Commercial Neurology 07/26/24 documented as of this encounter
--- OUTSIDE RECORDS SUMMARY | 2025-01-18 08:43 | XMS_ITS | Clinical Summary ---
Author Organization [facility] Address [id number] [address] [place] [address] Care Team Providers Care Enrollment Management Coordinator Name Role Phone Adelaida Carrion APRN-AOC OPERATIONS INTELLIGENCE OFFICER Primary Care Provider Medications gabapentin (NEURONTIN) 600 [...] Devices Not on file Insurance [employer] [address] Care Teams Enrollment Management Coordinator Relationship Specialty Start Date End Date Adelaida Carrion APRN-AOC OPERATIONS INTELLIGENCE OFFICER PCP - General Nurse Practitioner 12/10/16
--- OUTSIDE RECORDS SUMMARY | 2025-01-18 08:43 | XMS_ITS | Encounter Summary ---
Author Organization [facility] Address [address] [place] [address] Care Team Providers Care Printing Technician Name Role Phone Adelaida Carrion NP Unavailable [phone] José Luis Roberts MD Primary Care Provider [phone] Miriam Suarez DO Unavailable [phone] Mathew Parra GOVERNMENT EMPLOYEE Unavailable Unavailable Diana De Leon LPN Unavailable Unallocated, Noms Provider Primary Care Provi kellee Adelaida Carrion NP Unavailable [phone] José Luis Roberts MD Primary Care Provider [phone] Bong Rosado MA Unavailable [phone] Juany Leggett Unavailable Encounter Details Date Type Department Care Team (Late st Contact Info) Description 12/02/2023 Orders Only [facility] [address] [place] [address] Bhakti Culp NP [address] [place] [address] Social History Tobacco Use Types [...] How often do you attend alevism or temple serv ices? Never 08/16/2023 Do [...] Recorded Patient Health Questionnaire-2 Score 2 09/21/2023 [facility] of Occupat ional Health [...] Spine, L-spine Radiographic Nelda ging Bhakti Culp DIRECT CARE SUPERVISOR IMG XR PROCEDURES Final Result * XR thoracic spine 3 views (12/02/2023 4:01 PM EDT) Anatomical Region Laterality Modality Spine, T-spine Radiographic Nelda ging Bhakti Culp DIRECT CARE SUPERVISOR IMG XR PROCEDURES Final Result documented in this encounter Visit Diagnoses Not on filedocumented in this encounter Additional Health Concerns Assessment Noted Time PHQ-9 Depression Total Score: 8 05/18/19 24 5:00 PM EST documented as of this encounter Care Teams Printing Technician Relationship Specialty Start Date End Date José Luis Roberts MD PCP - General Family Medicine 05/18/23 01/26/24 Unallocated, Noms MD Mariela [address] [facility] [place] [address] PCP - General Family Medicine 01/27/24 02/01/24 José Luis Roberts MD PCP - General Family Medicine 02/02/24 Adelaida Carrion NP Referring Physician Nurse Practitioner 10/14/22 Miriam Suarez DO [address] [place] [address] Referring Physician Neurology 06/29/23 Mathew Parra LPN Licensed Practical Nurse Family Medicine 07/23/23 Diana De Leon LPN [address] [place] [address] Licensed Practical Nurse Family Medicine 12/18/2302/11 Adelaida Carrion NP [address] [place] [address] Nurse Practitioner Family Medicine 01/27/24 Bong Rosado, [place] [address] [place] [address] Family Medicine 02/12/24 11/29/24 Juany Leggett PA [address] [place] [address] Physician Health Care Manager Neurology 07/26/24 documented as of this encounter
--- OUTSIDE RECORDS SUMMARY | 2025-01-18 08:43 | XMS_ITS | Encounter Summary ---
Author Organization [facility] Address [address] [place] [address] Care Team Providers Care Finisher Hand Name Role Phone Miriam Suarez Unavailable [phone] Adelaida Carrion NP Unavailable [phone] José Luis Roberts MD Primary Care Provider Bong Rosado MA Unavailable [phone] Juany Leggett Unavailable Encounter Details Date Type Department Care Team (Late st Contact Info) Description 09/19/2024 Abstract [facility] [address] [place] [address] Adelaida Carrion, BRIANA [address] [place] [address] Social History Tobacco Use Types Packs/Day Years [...] How often do you attend druze or sikh serv ices? Never 08/16/2023 Do [...] Recorded Patient Health Questionnaire-2 Score 2 09/21/2023 [facility] - [...] documented as of this encounter Care Teams Finisher Hand Relationship Specialty Start Date End Date José Luis Roberts MD [address] [place] [address] PCP - General Family Medicine 02/02/24 Miriam Suarez DO [address] [place] [address] Referring Physician Neurology 06/29/23 Adelaida Carrion NP [address] [place] [address] Nurse Practitioner Family Medicine 01/27/24 Bong Rosado, [place] [address] [place] [address] Family Medicine 02/12/24 11/29/24 Juany Leggett PA [address] [place] [address] Physician Metallurgical Laboratory Assistant Neurology 07/26/24 documented as of this encounter
--- OUTSIDE RECORDS SUMMARY | 2025-01-18 08:43 | XMS_ITS | Encounter Summary ---
Author Organization [facility] Address [address] [place] [address] Care Team Providers Care Washroom Attendant Name Role Phone Adelaida Carrion NP Unavailable [phone] José Luis Roberts MD Primary Care Provider [phone] José Luis Roberts MD Primary Care Provider [phone] Miriam Suarez DO Unavailable [phone] [place], Ardana DRUM HANDLER Unavailable Unavailable Aida Ardana DRUM HANDLER Unavailable Unavailable Diana De Leon DRUM HANDLER Unavailable Unallocated, Noms Provider Primary Care Provi kellee Adelaida Carrion NP Unavailable [phone] José Luis Roberts MD Primary Care Provider [phone] Bong Rosado MA Unavailable [phone] Juany Leggett Unavailable Encounter Details Date Type Department Care Team (Late st Contact Info) Description 04/09/2023 Abstract [facility] [address] [place] [address] Adelaida Carrion NP [address] [place] [address] Social History Tobacco Use Types Packs/Day Years [...] on filedocumented in this encounter Care Teams Washroom Attendant Relationship Specialty Start Date End Date José Luis Roberts MD PCP - General Family Medicine 10/14/22 05/17/23 José Luis Roberts MD PCP - General Family Medicine 05/18/23 01/26/24 Unallocated, Noms MD Mariela [address] [facility] [place] [address] PCP - General Family Medicine 01/27/24 02/01/24 José Luis Roberts MD PCP - General Family Medicine 02/02/24 Adelaida Carrion NP Referring Physician Nurse Practitioner 10/14/22 Miriam Suarez DO [address] [place] [address] Referring Physician Neurology 06/29/23 Mathew Parra LPN Registered Nurse Family Medicine 07/07/23 07/08/23 Mathew Parra LPN Licensed Practical Nurse Family Medicine 07/23/23 Diana De [place] LPN [address] [place], [place] [address] Licensed Practical Nurse Family Medicine 12/18/2302/11 Adelaida Carrion NP [address] [place] [address] Nurse Practitioner Family Medicine 01/27/24 Bong Rosado, [place] [address] [place] [address] Family Medicine 02/12/24 11/29/24 Juany Leggett PA [address] [place] [address] Physician Population Health Manager Neurology 07/26/24 documented as of this encounter
--- OUTSIDE RECORDS SUMMARY | 2025-01-18 08:43 | XMS_ITS | Encounter Summary ---
Author Organization [facility] Address [address] [place] [address] Care Team Providers Care Salt Washer Name Role Phone Adelaida Carrion NP Unavailable [phone] José Luis Roberts MD Primary Care Provider [phone] Miriam Suarez DO Unavailable [phone] Mathew Parra CORE MAKER Unavailable Unavailable Diana De Leon LPN Unavailable Unallocated, Noms Provider Primary Care Provi kellee Adelaida Carrion NP Unavailable [phone] José Luis Roberts MD Primary Care Provider [phone] Bong Rosado MA Unavailable [phone] Juany Leggett Unavailable Encounter Details Date Type Department Care Team (Late st Contact Info) Description 08/19/2023 Clinisync Result Encounter [facility] External Department Unsolicited Adelaida Carrion NP [address] [place] [address] Social History Tobacco Use Types Packs/Day Years [...] How often do you attend protestant or adventist serv ices? Never 08/16/2023 Do [...] Recorded Patient Health Questionnaire-2 Score 0 08/17/2023 [facility] [...] AM EDT Narrative 08/19/2023 6:09 [place] [address] CT Scan Report Signed Patient: NASIM INGRAM MR#: [id number] : 1960 Acct:[id number] Age/Sex: 62 / F ADM Date: 08/18/23 Loc: CT Attending Dr: Adelaida Carrion NP Ordering Physician: Adelaida Carrion NP Date of Service: 08/18/23 Procedure(s): CT lung screening low-dose Accession Number(s): [id number] cc: Adelaida Carrion NP [place] [address] Patient Name: NASIM INGRAM MRN: [id number] date: 1960 Sex: F Assigned Patient Location: CT Current Patient Location: Accession/Order Number: [id number] Exam Date: 08/18/2023 13:28 Report Date: 08/19/2023 [...] M.D. Signed By: 08/19/23608 DD/ 5 TD/TT: Sports Athletic Trainer: Procedure Note Radiology, Radiologist, MD - 08/19/2023 [place] [address] CT Scan Report Signed Patient: NASIM INGRAM LMR#: [id number] : 1960cct:[id number] Age/Sex: 62 / FADM Date: 08/18/23 Loc: CT Attending Dr: Adelaida Carrion NP Ordering Physician: Adelaida Carrion NP Date of Service: 08/18/23 Procedure(s): CT lung screening low-dose Accession Number(s): [id number] cc: Adelaida Carrion NP [place] [address] Patient Name: NASIM INGRAM MRN: [facility]:[id number] date: 1960 Sex: F Assigned Patient Location: CT Current Patient Location: Accession/Order Number: [id number] Exam Date: 08/18/2023 13:28 Report Date: 08/19/2023 [...] Dhillon M.D. Signed By:08/19/23608 DD/ 5 TD/TT: Sports Athletic Trainer: us Adelaida Carrion NP [facility] Final Result documented in this encounter Visit Diagnoses Not on filedocumented in this encounter Additional Health Concerns Assessment Noted Time PHQ-9 Depression Total Score: 8 05/18/19 24 5:00 PM EST documented as of this encounter Care Teams Salt Washer Relationship Specialty Start Date End Date José Luis Roberts MD PCP - General Family Medicine 05/18/23 01/26/24 Unallocated, Noms MD Mariela [address] [place] [address] PCP - General Family Medicine 01/27/24 02/01/24 José Luis Roberts MD PCP - General Family Medicine 02/02/24 Adelaida Carrion NP Referring Physician Nurse Practitioner 10/14/22 Miriam Suarez DO [address] [place], [place] [address] Referring Physician Neurology 06/29/23 Mathew aPrra LPN Licensed Practical Nurse Family Medicine 07/23/23 Diana De Leon LPN [address] [place] [address] Licensed Practical Nurse Family Medicine 12/18/2302/11 Adelaida Carrion NP [address] [place] [address] Nurse Practitioner Family Medicine 01/27/24 Bong Rosado, [place] [address] [place] [address] Family Medicine 02/12/24 11/29/24 Juany Leggett PA [address] [place] [address] Physician Work Over Rig Operator Neurology 07/26/24 documented as of this encounter
--- OUTSIDE RECORDS SUMMARY | 2025-01-18 08:43 | XMS_ITS | Encounter Summary ---
Author Organization [facility] Address [address] [place] [address] Care Team Providers Care Design Director Name Role Phone Adelaida Carrion NP Unavailable [phone] José Luis Roberts MD Primary Care Provider Miriam Suarez DO Unavailable [phone] Diana De Leon LPN Unavailable Unallocated, Noms Provider Primary Care Provi kellee Adelaida Carrion NP Unavailable [phone] José Luis Roberts MD Primary Care Provider Bong Rosado MA Unavailable [phone] Juany Leggett Unavailable Encounter Details Date Type Department Care Team (Late st Contact Info) Description 01/21/2024 Orders Only [facility] [address] [place] [address] Adelaida Carrion NP [address] [place] [address] Social History Tobacco Use Types [...] Recorded Patient Health Questionnaire-2 Score 2 09/21/2023 [facility] - [...] Laterality Modality Radiographic Nelda ging Adelaida Carrion AUGER PRESS OPERATOR IMG XR PROCEDURES Final Result documented in this encounter Visit Diagnoses Not on filedocumented in this encounter Additional Health Concerns Assessment Noted Time PHQ-9 Depression Total Score: 8 05/18/19 24 5:00 PM EST documented as of this encounter Care Teams Design Director Relationship Specialty Start Date End Date José Luis Roberts MD PCP - General Family Medicine 05/18/23 01/26/24 Unallocated, Noms MD Mariela [address] [place] [address] PCP - General Family Medicine 01/27/24 02/01/24 José Luis Roberts MD PCP - General Family Medicine 02/02/24 Adelaida Carrion NP Referring Physician Nurse Practitioner 10/14/22 Miriam Suarez DO [address] [place] [address] Referring Physician Neurology 06/29/23 Diana De Leon LPN [address] [place] [address] Licensed Practical Nurse Family Medicine 12/18/2302/11 Adelaida Carrion NP [address] [place] [address] Nurse Practitioner Family Medicine 01/27/24 Bong Rosado, [place] [address] [place] [address] Family Medicine 02/12/24 11/29/24 Juany Leggett PA [address] [place] [address] Physician Client Relationship Manager Neurology 07/26/24 documented as of this encounter
--- OUTSIDE RECORDS SUMMARY | 2025-01-18 08:43 | XMS_ITS | Patient Health Record ---
Author Organization [facility] [place] Address [address] [place] [address] Care Team Providers Care International Project Manager Name Role Phone Adelaida Carrion CNP [...] Problem Sprain of ligament of tarsometatarsal joint (06160116) Sprain of tarsometatarsal ligament of right foot, initial encounter (S93.621A) Active confirmed Problem Lumbar post-laminectomy syndrome (190399531) Lumbar postlaminectomy syndrome (M96.1) Active confirmed Problem Lumbosacral spondylosis without myelopathy (74220691) Lumbosacral spondylosis without myelopathy (M47.817) Active confirmed Problem Altered mental status (694968739) Altered mental status (R41.82) Active confirmed Plan [...] [employer] MEDICARE PPO [address] [address] [place], [place] [id number] Nasim Conway Self - patient is the insured [place]IC[place] [place] [address] [id number] Nasim Conway Self - patient is the insured Medical (General) History Medical History History ICD Code Right foot pain M79.671 hypertension dysphagia Osteoporosis M81.0 Bipolar disorder with severe depression F31.4 Brain vascular 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
--- OUTSIDE RECORDS SUMMARY | 2025-01-18 08:43 | XMS_ITS | Encounter Summary ---
Author Organization [facility] Address [address] [place] [address] Care Team Providers Care Psychology Instructor Name Role Phone Adelaida Carrion NP Unavailable [phone] José Luis Roberts MD Primary Care Provider [phone] Miriam Suarez DO Unavailable [phone] Mathew Parra GRINDER NEEDLE TIP Unavailable Unavailable Diana De Leon LPN Unavailable Unallocated, Noms Provider Primary Care Provi kellee Adelaida Carrion NP Unavailable [phone] José Luis Roberts MD Primary Care Provider [phone] Bong Rosado MA Unavailable [phone] Juany Leggett Unavailable Encounter Details Date [...] How often do you attend gnosticism or taoism serv ices? Never 08/16/2023 Do [...] Recorded Patient Health Questionnaire-2 Score 2 09/21/2023 [facility] [place] of Occupat ional Health - Occupational Stress [...] PM EDT Narrative 12/02/2023 2:55 PM EDT [address] [address] XRay Report Signed Patient: NASIM INGRAM MR#: [id number] : 1960 Acct:[id number] Age/Sex: 62 / F ADM Date: 12/02/23 Loc: RAD Attending Dr: Elizabeth Cano NP Ordering Physician: Elizabeth Cano NP Date of Service: 12/02/23 Procedure(s): XR thoracic spine 2V Accession Number(s): [id number] cc: Adelaida Carrion NP; Elizabeth Cano NP [place] [id number] Patient Name: NASIM INGRAM MRN: [id number] date: 1960 Sex: F Assigned Patient Location: [facility] Current Patient Location: [facility] Accession/Order Number: [id number] Exam Date: 12/02/2023 14:10 Report Date: 12/02/2023 [...] M.D. Signed By: 12/02/231454 DD/ 52 TD/TT: Skills Auditor: Procedure Note Radiology, Radiologist, - 12/02/2023 [place] [address] XRay Report Signed Patient: NASIM INGRAM LMR#: [id number] : 1960cct:[id number] Age/Sex: 62 / FADM Date: 12/02/23 Loc: RAD Attending Dr: Elizabeth Cano NP Ordering Physician: Elizabeth Cano NP Date of Service: 12/02/23 Procedure(s): XR thoracic spine 2V Accession Number(s): [id number] cc: Adelaida Carrion NP; Elizabeth Cano NP [address] [place] [address] Patient Name: NASIM INGRAM MRN: [id number] date: 1960 Sex: F Assigned Patient Location: [facility] Current Patient Location: [facility] Accession/Order Number: [id number] Exam Date: 12/02/2023 14:10 Report Date: 12/02/2023 [...] Maciel M.D. Signed By:12/02/231454 DD/ 52 TD/TT: Skills Auditor: us Generic External Data Provider IMG XR PROCEDURES Final Result documented in this encounter Visit Diagnoses Not on filedocumented in this encounter Additional Health Concerns Assessment Noted Time PHQ-9 Depression Total Score: 8 05/18/19 24 5:00 PM EST documented as of this encounter Care Teams Psychology Instructor Relationship Specialty Start Date End Date José Luis Roberts MD PCP - General Family Medicine 05/18/23 01/26/24 Unallocated, Johan Sierra MD [address] [place] [address] PCP - General Family Medicine 01/27/24 02/01/24 José Luis Roberts MD PCP - General Family Medicine 02/02/24 Adelaida Carrion NP Referring Physician Nurse Practitioner 10/14/22 Miriam Suarez DO [address] [place] [address] Referring Physician Neurology 06/29/23 Mathew Parra LPN Licensed Practical Nurse Family Medicine 07/23/23 Diana De Leon LPN [address] [facility] [address] [place] [address] Licensed Practical Nurse Family Medicine 12/18/2302/11 Adelaida Carrion, BRIANA [address] [place] [address] Nurse Practitioner Family Medicine 01/27/24 Bong Rosado, [place] [address] [place] [address] Family Medicine 02/12/24 11/29/24 Juany Leggett PA [address] [facility] [address] [place] [address] Physician Brown Sourer Neurology 07/26/24 documented as of this encounter
--- OUTSIDE RECORDS SUMMARY | 2025-01-18 08:43 | XMS_ITS | Encounter Summary ---
Author Organization [facility] Address [address] [place] [address] Care Team Providers Care Dietary Services Manager Name Role Phone Adelaida Carrion NP Unavailable [phone] José Luis Roberts MD Primary Care Provider [phone] José Luis Roberts MD Primary Care Provider [phone] Miriam Suarez DO Unavailable [phone] [place], [place] KNOTTING MACHINE OPERATOR Unavailable Unavailable Aida Ard[place] KNOTTING MACHINE OPERATOR Unavailable Unavailable Diana De Leon KNOTTING MACHINE OPERATOR Unavailable Unallocated, Noms Provider Primary Care Provi kellee Adelaida Carrion NP Unavailable [phone] José Luis Roberts MD Primary Care Provider [phone] Bong Rosado MA Unavailable [phone] Juany Leggett Unavailable Encounter Details Date Type Department Care Team (Late st Contact Info) Description 03/26/2023 Clinisync Result Encounter [facility] External Department Unsolicited Adelaida Carrion NP [address] [place] [address] Social History Tobacco Use Types Packs/Day Years [...] AM EST Narrative 03/26/2023 8:17 AM EST [address] [address] XRay Report Signed Patient: NASIM INGRAM MR#: [id number] : 1960 Acct:[id number] Age/Sex: 62 / F ADM Date: 03/25/23 Loc: [facility] Attending Dr: Adelaida Carrion AIR DRIER MACHINE OPERATOR Ordering Physician: Adelaida Carrion NP Date of Service: 03/25/23 Procedure(s): XR foot LT min 3V Accession Number(s): [id number] cc: Adelaida Carrion NP [address] [address] Patient Name: NASIM INGRAM MRN: [id number] date: 1960 Sex: F Assigned Patient Location: RAD Current Patient Location: Accession/Order Number: [id number] Exam Date: 03/25/2023 15:34 Report Date: 03/26/2023 08:14 At the request of: ADELAIDA CARRION Procedure: XR foot LT min 3V PROCEDURE: XR foot LT min 3V DATE: 03/25/2023 2:34 PM SALESPERSON HOUSEHOLD APPLIANCES COMPARISONS: None CLINICAL INDICATION: left foot pain [...] M.D. Signed By: 03/26/23816 DD/ 3 TD/TT: Front Elevator Operator: Procedure Note Radiology, Radiologist, MD - 03/26/2023 [place] [address] XRay Report Signed Patient: NASIM INGRAM LMR#: [id number] : 1960cct:[id number] Age/Sex: 62 / FADM Date: 03/25/23 Loc: [facility] Attending Dr: Adelaida Carrion NP Ordering Physician: Adelaida Carrion NP Date of Service: 03/25/23 Procedure(s): XR foot LT min 3V Accession Number(s): [id number] cc: Adelaida Carrion NP [address] [address] Patient Name: NASIM INGRAM MRN: [id number] date: 1960 Sex: F Assigned Patient Location: [facility] Current Patient Location: Accession/Order Number: [id number] Exam Date: 03/25/2023 15:34 Report Date: 03/26/2023 08:14 At the request of: ADELAIDA CARRION Procedure: XR foot LT min 3V PROCEDURE: XR foot LT min 3V DATE: 03/25/2023 2:34 PM SALESPERSON HOUSEHOLD APPLIANCES COMPARISONS: None CLINICAL INDICATION: left foot pain [...] Harris M.D. Signed By:03/26/23816 DD/ 3 TD/TT: Front Elevator Operator: us Adelaida Carrion AIR DRIER MACHINE OPERATOR [facility] Final Result documented in this encounter Visit Diagnoses Not on filedocumented in this encounter Care Teams Dietary Services Manager Relationship Specialty Start Date End Date José Luis Roberts MD PCP - General Family Medicine 10/14/22 05/17/23 José Luis Roberts MD PCP - General Family Medicine 05/18/23 01/26/24 Unallocated, Noms ProviderMD [address] [place] [address] PCP - General Family Medicine 01/27/24 02/01/24 José Luis Roberts MD PCP - General Family Medicine 02/02/24 Adelaida Carrion NP Referring Physician Nurse Practitioner 10/14/22 Miriam Suarez DO [address] [place] [address] Referring Physician Neurology 06/29/23 Mathew Parra LPN Registered Nurse Family Medicine 07/07/23 07/08/23 Mathew Parra LPN Licensed Practical Nurse Family Medicine 07/23/23 Diana De Leon LPN [address] [place] [address] Licensed Practical Nurse Family Medicine 12/18/2302/11 Adelaida Carrion NP [address] [place] [address] Nurse Practitioner Family Medicine 01/27/24 Bong Rosado [place] [address] [place] [address] Family Medicine 02/12/24 11/29/24 Juany Leggett PA [address] [place] [address] Physician Vice President Quality Neurology 07/26/24 documented as of this encounter
--- OUTSIDE RECORDS SUMMARY | 2025-01-18 08:43 | XMS_ITS | Encounter Summary ---
Author Organization [facility] Address [address] [place] [address] Care Team Providers Care Residential Builder Name Role Phone Adelaida Carrion NP Unavailable [phone] José Luis Roberts MD Primary Care Provider [phone] Miriam Suarez DO Unavailable [phone] Mathew Parra FISH DRESSING MACHINE FEEDER Unavailable Unavailable Mathew Parra FISH DRESSING MACHINE FEEDER Unavailable Unavailable Diana De Leon FISH DRESSING MACHINE FEEDER Unavailable Unallocated, Noms Provider Primary Care Provi kellee Adelaida Carrion NP Unavailable [phone] José Luis Roberts MD Primary Care Provider [phone] Bong Rosado MA Unavailable [phone] Juany Leggett Unavailable Encounter Details Date Type Department Care Team (Late st Contact Info) Description 05/19/2023 Clinisync Result Encounter [facility] External Department Unsolicited Adelaida Carrion NP [address] [place] [address] Social History Tobacco Use Types Packs/Day Years [...] Never 05/18/2023 How often do you attend mu-ism or spiritism serv ices? Never 05/18/2023 Do you belong [...] Recorded Patient Health Questionnaire-2 Score 1 05/18/2023 [facility] - Occupational Stress Questionnaire Answer Date [...] slept in a snf (including now)? No 05/18/2023 Comments Unknown Sex [...] AM EST Narrative 05/19/2023 9:34 AM EST The [address] [address] XRay Report Signed Patient: NASIM INGRAM MR#: [id number] : 1960 Acct:[id number] Age/Sex: 62 / F ADM Date: 05/19/23 Loc: RAD Attending Dr: Adelaida Carrion API ARCHITECT Ordering Physician: Adelaida Carrion NP Date of Service: 05/19/23 Procedure(s): XR hip LT min 2V Accession Number(s): [id number] cc: Adelaida Carrion NP [place] [address] Patient Name: NASIM INGRAM MRN: [id number] date: 1960 Sex: F Assigned Patient Location: [facility] Current Patient Location: [facility] Accession/Order Number: [id number] Exam Date: 05/19/2023 07:50 Report Date: 05/19/2023 [...] M.D. Signed By: 05/19/23933 DD/ 0 TD/TT: Service Crew Supervisor: Procedure Note Radiology, Radiologist, MD - 05/19/[address] [address] XRay Report Signed Patient: NASIM INGRAM LMR#: [id number] : 1960cct:[id number] Age/Sex: 62 / FADM Date: 05/19/23 Loc: RAD Attending Dr: Adelaida Carrion API ARCHITECT Ordering Physician: Adelaida Carrion NP Date of Service: 05/19/23 Procedure(s): XR hip LT min 2V Accession Number(s): [id number] cc: Adelaida Carrion NP [place] [id number] Patient Name: NASIM INGRAM MRN: [id number] date: 1960 Sex: F Assigned Patient Location: RAD Current Patient Location: RAD Accession/Order Number: [id number] Exam Date: 05/19/2023 07:50 Report Date: 05/19/2023 [...] Maciel M.D. Signed By:05/19/23933 DD/ 0 TD/TT: Service Crew Supervisor: us Adelaida Carrion API ARCHITECT [facility] Final Result documented in this encounter Visit Diagnoses Not on filedocumented in this encounter Additional Health Concerns Assessment Noted Time PHQ-9 Depression Total Score: 8 05/18/19 24 5:00 PM EST documented as of this encounter Care Teams Residential Builder Relationship Specialty Start Date End Date José Luis Roberts MD PCP - General Family Medicine 05/18/23 01/26/24 Unallocated, Noms MD Mariela [address] [place] [address] PCP - General Family Medicine 01/27/24 02/01/24 José Luis Roberts MD PCP - General Family Medicine 02/02/24 Adelaida Carrion NP Referring Physician Nurse Practitioner 10/14/22 Miriam Suarez DO [address] [place], [place] [address] Referring Physician Neurology 06/29/23 Mathew Parra LPN Registered Nurse Family Medicine 07/07/23 07/08/23 Mathew Parra LPN Licensed Practical Nurse Family Medicine 07/23/23 Diana De Leon LPN [address] [place] [address] Licensed Practical Nurse Family Medicine 12/18/2302/11 Adelaida Carrion NP [address] [place] [address] Nurse Practitioner Family Medicine 01/27/24 Bong Rosado, [place] [address] [place] [address] Family Medicine 02/12/24 11/29/24 Juany Leggett PA [address] [place] [address] Physician Abrading Machine Tender Neurology 07/26/24 documented as of this encounter
--- OUTSIDE RECORDS SUMMARY | 2025-01-18 08:47 | XMS_ITS | CCD ---
Author Organization [facility] Care Team Providers Care Sewer Pipe Offbearer Name Role Phone ROSIERAHEIM, SUKI Admitting Unavailable EBRAHEIM, SUKI Attending Unavailable AICHHOLZ, ADELAIDA Referring Unavailable AICHHOLZ, ADELAIDA Primary Care Unavailable [place] Procedure Practitioner Unavailab SUKI Jacob Surgeon Unavailable [place] Procedure Practitioner Unavailab CHAPARRITA Goncalves Surgeon Unavailable BRIDGETTE MACEDO Admitting Unavailable BRIDGETTE MACEDO Attending Unavailable AICHHOLZ, RDA ADELAIDA Primary Care Unavailable NIXON ., DR FINA Iverson Admitting Unavailable NIXON ., DR FINA Iverson Attending Unavailable AICHHOLZ, RDA ADELAIDA Primary Care Unavailable MCDANIEL ., ZELDA Consulting Unavailable LAKSHMIPATHY ., NARENDRANATH Consulting Paula vailable LAKSHMIPATHY ., NARENDRANATH Admitting Paula vailable LAKSHMIPATHY ., NARENDRANATH Attending Paula vailable AICHHOLZ, RDA ADELAIDA Primary Care Unavailable LAKSHMIPATHY ., NARENDRANATH Consulting Paula vailable AICHHOLZ, RDA ADELAIDA Primary Care Unavailable MARKER ., DR CHAUDHRY Admitting Unavailable MARKER ., DR CHAUDHRY Attending Unavailable MARKER ., DR CHAUDHRY Consulting Unavailable AICHHOLZ, RDA ADELAIDA Admitting Unavailable AICHHOLZ, RDA ADELAIDA Attending Unavailable AICHHOLZ, RDA ADELAIDA Primary Care Unavailable NIXON ., DR FINA Iverson Admitting Unavailable NIXON ., DR FINA Iverson Attending Unavailable AICHHOLZ, RDA ADELAIDA Primary Care Unavailable MCDANIEL ., ZELDA Consulting Unavailable NIXON ., DR FINA Iverson Admitting Unavailable NIXON ., DR FINA Iverson Attending Unavailable AICHHOLZ, RDA ADELAIDA Primary Care Unavailable MCDANIEL ., ZELDA Consulting Unavailable AICHHOLZ, RDA ADELAIDA Admitting Unavailable AICHHOLZ, RDA ADELAIDA Attending Unavailable AICHHOLZ, RDA ADELAIDA Primary Care Unavailable AICHHOLZ, RDA ADELAIDA Consulting Unavailable AICHHOLZ, RDA ADELAIDA Admitting Unavailable AICHHOLZ, RDA ADELAIDA Attending Unavailable AICHOLZ, RDA ADELAIDA Primary Care Unavailable AICHHOLZ, RDA ADELAIDA Consulting Unavailable MISC, DR COTE Admitting Unavailable MISC, DR COTE Attending Unavailable AICHOLZ, RDA ADELAIDA Primary Care Unavailable AICHHOLZ, RDA ADELAIDA Consulting Unavailable PRITESHC, DR COTE Consulting Unavailable STARR, DR KINGSLEY Atkins Consulting Unavailable NIXON ., DR FINA Iverson Admitting Unavailable NIXON ., DR FINA Iverson Attending Unavailable AICHOLZ, [facility] ADELAIDA Primary Care Unavailable MCDANIEL ., ZELDA Consulting Unavailable NIXON ., DR FINA Iverson Admitting Unavailable NIXON ., DR FINA Iverson Attending [facility]available [facility] Unavailable NIXON ., DR FINA Iverson Consulting Unavailable OMID LAY Consulting Unavailable NIXON ., DR FINA Iverson Admitting Unavailable NIXON ., DR FINA Iverson Attending Unavailable [facility], [facility] ADELAIDA Primary Care Unavailable MCDANIEL ., ZELDA Consulting Unavailable AICHOLZ, [facility] ADELAIDA Primary Care Unavailable HALKER ., ARIAN Admitting Unavailable HALKER ., ARIAN Attending Unavailable LAKSHMIPATHY ., NARENDRANATH Consulting Paula vailable HALKER ., ARIAN Consulting Unavailable LAKSHMIPATHY ., NARENDRANATH Admitting Paula vailable LAKSHMIPATHY ., NARENDRANATH Attending Paula vailable [facility], [facility] ADELAIDA Primary Care Unavailable LAKSHMIPATHY ., NARENDRANATH Consulting Paula vailable AICHOLZ, RDA ADELAIDA Admitting Unavailable AICHHOLZ, RDA ADELAIDA Attending Unavailable AICHOLZ, RDA ADELAIDA Primary Care Unavailable AICHHOLZ, RDA ADELAIDA Consulting Unavailable BRIDGETTE MACEDO Admitting Unavailable BRIDGETTE MACEDO Attending Unavailable AICHHOLZ, RDA ADELAIDA Primary Care Unavailable DR KINGSLEY CLEMENTS Consulting Unavailable BRIDGETTE MACEDO Consulting Unavailable GILMER NEVES Admitting Unavailable GILMER NEVES Attending Unavailable PURA, GILMER Consulting Unavailable AICHOLZ, RDA ADELAIDA Primary Care Unavailable AICHHOLZ, RDA ADELAIDA Primary Care Unavailable DR WILLI RINALDI Admitting Unavailable DEEJAY, DR WILLI Atkins Attending Unavailable DR WILLI RINALDI Consulting Unavailable AICHHOLZ, RDA ADELAIDA Primary Care Unavailable ALMAZ ., DANNY Admitting Unavailable ALMAZ ., DANNY Attending Unavailable DR KINGSLEY CLEMENTS Consulting Unavailable ALMAZ ., DANNY Consulting Unavailable LAKSHMIPATHY ., NARENDRANATH Admitting Paula vailable LAKSHMIPATHY ., NARENDRANATH Attending Paula vailable AICHHOLZ, RDA ADELAIDA Primary Care Unavailable AICHHOLZ, RDA ADELAIDA Admitting Unavailable AICHHOLZ, RDA ADELAIDA Attending Unavailable AICHHOLZ, RDA ADELAIDA Primary Care Unavailable AICHHOLZ, RDA ADELAIDA Admitting Unavailable AICHHOLZ, RDA ADELAIDA Attending Unavailable AICHHOLZ, RDA ADELAIDA Primary Care Unavailable AICHHOLZ, RDA ADELAIDA Consulting Unavailable DR KINGSLEY CLEMENTS Consulting Unavailable HALKER ., ARIAN Admitting Unavailable HALKER ., ARIAN Attending Unavailable AICHHOLZ, RDA ADELAIDA Primary Care Unavailable Aichholz, Adelaida J Primary Care Provider MD Gaudencio Monk Admit Provider MD Gaudencio Monk Attending Provider [phone] JOHANN Vieira Other Provider Unavailable JOHANN Pina Other Provider Unavailable JOHANN Hurtado Other Provider Unavailable JOHANN Crooks Other Provider Unavailable JOHANN Mejias Other Provider Unavailable JOHANN Kim Other Provider Unavailable MD Walker Pringle Other Provider ROSS Marsh Other Provider [phone] DO Jessica Murillo Other Provider [phone] MD Obdulio Bragg Other Provider DO Joon Cristina Other Provider MD Torin Robert Other Provider MD Dawn Barrera Other Provider [phone] Karlene ANP-BC Mari Other Provider MD [...] Provider MD Jace Graham Attending Provider Sheyla INTERN, Adelaida Unavailable José Luis Roberts MD Primary Care Provider Aichholz INTERN, Adelaida Unavailable Daniela GRAHAM Miriam Unavailable Moises CAMPBELL, Diana Unavailable Unavailable Unallocatuche JAIMES, Geeta Provider Primary Care Provi kellee Sheyla INTERN, Adelaida Unavailable Alejanrda JAIMES, José Luis Primary Care Provider Bong Rosado MA Unavailable Unavailable Aida CAMPBELL, Mathew Unavailable Unavailable Juany Yi Unavailable Bong Rosado MA Unavailable AICJANIYA, ADELAIDA J Primary Care Unavailable AKSHAT BLACKWELL Consulting Unavailable Aichholz INTERN, Adelaida Unavailable Alejandra JAIMES, José Luis Primary Care Provider Eduardo Monk Admitting Unavailab Eduardo Connolly Attending Unavailab le Yinghbob, Adelaida J Primary Care Unavailable Aichholz, Adelaida J Primary Care Unavailable Rob Lake Attending Unavailable Malinda Rosales Consulting Unavailable Delta Gan Admitting Unavailable David Foster Consulting Unavailable Miriam Suarez Consulting Unavailable Kingsley Livingston Consulting Unavailable Kar Burt Consulting Unavailab Dennis Hicks Consulting Unavailable Juany Caballero Consulting Unavailable Inna Melendez Consulting Unavailable Rocio Duncan Consulting Unavailable Chuck Hinkle Consulting Unavailable AICHHOLADELAIDA Barrett Attending Unavailable LOWEJUANY Attending Unavailable LOWJUANY Palomino Attending Unavailable AICHHOLZ, ADELAIDA Attending Unavailable AICHHOLZ, ADELAIDA Attending Unavailable AICHHOLZ, ADELAIDA Attending Unavailable POCOS, [...] JUANY LEGGETT Referring Unavailable AICHHOLNena, ADELAIDA Attending Unavailable RACHEL MITCHELL Referring Unavailable Giedraitis , Androbin King Attending Unavailable Giedraitis , Andrius Christine Attending Unavailable Giedraitis MD, Andrius Vytautargelia Attending Unavailable Giedraitis MD, Andrius Vytautargelia Attending Unavailable Giedraitis MD, Andrius Vytautargelia Attending Unavailable Giedraitis MD, Andrius Vytautargelia Attending Unavailable Giedraitis MD, Andrius Vytautas Attending Unavailable Giedraitis MD, Andrius Vytautas Attending Unavailable Allergies Allergy Classification Reported Allergen(s) Allergy Type Date of Onset Reaction(s) Facility (7 sources) Adhesive Tape; Translations: [ADHESIVE TAPE] Propensity to adverse reactions (disorder) 04-06-19 14 rash [facility] Repository (3 sources) levETIRAcetam; Translations: [KEPPRA] Drug Allergy 07-02-19 19 [facility] Repository (3 sources) milnacipran; Translations: [SAVELLA] Drug Allergy 03-14-20 13 [facility] Repository (1 source) Penicillin; Translations: [PENICILLIN] Drug Allergy 01-16-20 18 [facility] Repository (5 sources) Prochlorperazin e; Translations: [COMPAZINE] Drug Allergy 03-14-20 13 agitation [facility] Repository (20 sources) Tetracycline; Translations: [TETRACYCLINE] Drug Allergy 04-06-19 13 Hives, Unknown [facility] Repository (4 sources) Penicillins Drug allergy (disorder) 04-06-19 13 Unknown Reaction [facility] Repository (20 sources) levETIRAcetam; Translations: [levetiracetam] Drug Allergy 12-13-19 22 Hallucinations , Other [facility] (20 sources) milnacipran; Translations: [milnacipran] Drug Allergy 12-13-19 22 hives, Hallucinations , Other, Unknown [facility] (20 sources) Prochlorperazin e; Translations: [prochlorperazi ne] Drug Allergy 12-13-19 22 Unknown, Other [facility] (2 sources) Penicillin G Drug Allergy as a child [facility] Other (2 sources) Tetracaine Drug Allergy Unknown [facility] Other (20 sources) Penicillins Drug Intolerance 12-13-19 Anaphylaxis [facility] (20 sources) Other Propensity to adverse reactions 12-13-19 Other [facility] (20 sources) Wound Dressing Adhesive Drug Allergy 09-20-19 23 Rash, Unknown [facility] (20 sources) Eszopiclone Drug Allergy 09-21-19 Hallucinations , Anaphylaxis [facility] (1 source) Penicillin Drug Allergy 03-02-20 [facility] Repository (1 source) Penicillins Drug allergy (disorder) 03-02-20 [facility] Repository (1 source) Tetracaine Drug Allergy 03-02-20 [facility] Repository Medications Current Medications Medication Drug Class(es) Dates Sig (Normalized) Sig (Original) acetaminophen 325 mg / HYDROcodone bitartrate 5 mg oral tablet (3 sources) Opioid Agonist Start: 12-14-2024 End: 12-26-2024 take 1 tablet by mouth every six hours for pain, then take 2 tablets by mouth every six hours for pain HYDROcodone-acetami nophen ([place]) 5-325 MG tablet Indications: Primary osteoarthritis of [...] 5 MG tabl et Pt taking OTC ([facility]) Active biotin 1 MG caps ule Biotin [...] (CITRACAL + D PO) Pt taking OTC ([facility]) Active Calcium Citrate- Vitamin D (CITRACAL + [...] sources) Magnesium 400 MG capsule Pt taking OTC([facility]) Active Magnesium 400 MG capsule magnesium 0 [...] s-Minerals (BARIATRIC MULTIVITAMINS/IRON PO) Pt taking OTC ([facility]) Active Multiple Vitamin s-Minerals (BARIATRIC MULTIVITAMINS/IRON PO) Bariatric Multivitamins/Iron 0 Active Bjkcnghakkwm-Tzj-Joup-Fa-Vit K (Bariatric Multivitamins) 45 mg iron- 800 mcg-120 mcg Capsule (2 sources) Start: 11-17-2022 take 1 capsule by mouth once daily Rnrjlydfmjdy-Ded-Qghh-Fa-Vit K (Bariatric Multivitamins) 45 mg iron- 800 mcg-120 mcg Capsule Active 1 CAP PO Daily November 16, 2022 11:00pm Start: 11-17-2022 take 1 capsule by mo uth once daily Qdimqrnpphqa-Jgz-Yedo-Fa-Vit K (Bariatri c Multivitamins) 45 mg iron- 800 mcg-120 mcg Capsule Active 1 CAP PO Daily November 17, 2022 12:00am nystatin 741999 unt/ml topical cream (20 sources) Polyene Antifungal Start: 03-07-2024 nystatin (M ycostatin) cream 03/07/2024 Active nystatin (Mycost atin) 362534 UNIT/GM powder Apply 1 application topically in [...] as acute or chronic] Onset: 07-27-2024 Resolved: 07-10-2025 04-23-2025 Episodic Conditions associated with dizziness or vertigo [...] 05-18-2023 Episodic Other aftercare (1 source) Other director long term care (current) drug therapy; Translations: [OTH [employer]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] Onset: 04-29-2022 Episodic [...] Reference Range Facility MR [place]BAR [place] [address] Magnetic Resonance Report Signed Patient: MICHELLE BE MR#: [id number] : 1960 Acct:[id number] Age/Sex: 63 / F ADM Date: 11/23/24 Loc: MRI Attending Dr: Elizabeth Culp NP Ordering Physician: Elizabeth Culp NP Date of Service: 11/23/24 Procedure(s): MR lumbar spine wo con Accession Number(s): [id number] cc: Adelaida Carrion NP; Elizabeth Culp NP [address] [address] Patient Name: MICHELLE BE MRN: [facility]:[id number] date: 1960 Sex: F Assigned Patient Location: MRI Current Patient Location: MRI Accession/Order Number: [id number] Exam Date: 11/23/2024 12:59 Report Date: 11/23/2024 [...] noted. There is moderate central canal narrowing. Vdkj-wj-lxupxiyk neural foraminal narrowing. L4-5: Circumferential disc bulge with small right subarticular zone T2 hyperintensity and protrusion questionably contacting the right traversing L5 nerve root. No high-grade mass effect or displacement on the L5 nerve root identified. Otherwise moderate foraminal narrowing. Advanced facet arthropathy. Ozjf-fq-opysyevo central canal stenosis. L5-S1: Disc desiccation with [...] Calderon M.D. 11/23/2024 1:28 PM Dictation Location: [place] [address] Electronically authenticated by: [id number] Y Date: 11/23/2024 13:28 Dictated By: Omar Calderon M.D. Signed By: 11/23/24 1331 DD/ 1328 TD/TT: Brake Repairer Bus: [facility] Radiology, Radiologist, MD - 11/23/2024 [place] [address] Magnetic Resonance Report Signed Patient: MICHELLE BE MR#: [id number] : 1960 Acct:[id number] Age/Sex: 63 / F ADM Date: 11/23/24 Loc: MRI Attending Dr: Elizabeth Culp NP Ordering Physician: Elizabeth Culp NP Date of Service: 11/23/24 Procedure(s): MR lumbar spine wo con Accession Number(s): [id number] cc: Adelaida Carrion NP; Elizabeth Culp NP The [address] [address] Patient Name: MICHELLE BE MRN: [facility]:[id number] date: 1960 Sex: F Assigned Patient Location: MRI Current Patient Location: MRI Accession/Order Number: [id number] Exam Date: 11/23/2024 12:59 Report Date: 11/23/2024 [...] noted. There is moderate central canal narrowing. Lsgv-up-pfayzpxq neural foraminal narrowing. L4-5: Circumferential disc bulge with small right subarticular zone T2 hyperintensity and protrusion questionably contacting the right traversing L5 nerve root. No high-grade mass effect or displacement on the L5 nerve root identified. Otherwise moderate foraminal narrowing. Advanced facet arthropathy. Bfkz-hp-vrkjfauv central canal stenosis. L5-S1: Disc desiccation with [...] Calderon M.D. 11/23/2024 1:28 PM Dictation Location: [place] [address] Electronically authenticated by: [id number] Y Date: 11/23/2024 13:28 Dictated By: Omar Calderon M.D. Signed By: 11/23/24 1330 DD/ 1328 TD/TT: Brake Repairer Bus: [facility] Radiology Study observation (narrative) [facility] MR LUMBAR SPINE WO CONOrdere d By: Radiologist Radiology on 11-23-2024 [facility] Work Phone: [facility] MICROALB CREAT RATIO RAN DOMon 11-23-2024 CREATININE URINE RANDOM 94.24 mg/dL 20.00 - 300.00 mg/dL [facility] MICROALBUMIN URINE RANDOM <1.3 NINF - 30.0 mg/dL [facility] XR CHEST 2Von 11-23-[address] [address] XRay Report Signed Patient: MICHELLE BE MR#: [id number] : 1960 Acct:[id number] Age/Sex: 63 / F ADM Date: 11/23/24 Loc: RAD Attending Dr: HARRISON HOYOS Ordering Physician: HARRISON HOYOS Date of Service: 11/23/24 Procedure(s): XR chest 2V Accession Number(s): [id number] cc: Adelaida Carrion INTERN; HARRISON HOYOS [place] [phone] Patient Name: MICHELLE BE MRN: [facility]:[id number] date: 1960 Sex: F Assigned Patient Location: RAD Current Patient Location: MRI Accession/Order Number: [id number] Exam Date: 11/23/2024 12:50 Report Date: 11/23/2024 12:51 At the request of: HARRISON HOYOS Procedure: XR chest 2V PA AND LATERAL CHEST: CLINICAL HISTORY: Pre Operative Testing COMPARISON: 07/24/2024 FINDINGS: Unremarkable cardiomediastinal. Lungs clear. No effusion or pneumothorax. XR/XR chest 2V IMPRESSION: NO ACUTE CARDIOPULMONARY ABNORMALITY. Impression dictated by: Omar Calderon M.D. 11/23/2024 12:51 PM Dictation Location: [place] [address] Electronically authenticated by: [id number] Y Date: 11/23/2024 12:51 Dictated By: Omar Calderon M.D. Signed By: 11/23/24 1254 DD/ 1251 TD/TT: Brake Repairer Bus: [facility] Radiology, Radiologist, MD - 11/23/[address] [address] XRay Report Signed Patient: MICHELLE BE MR#: [id number] : 1960 Acct:[id number] Age/Sex: 63 / F ADM Date: 11/23/24 Loc: RAD Attending Dr: HARRISON HOYOS Ordering Physician: HARRISON HOYOS Date of Service: 11/23/24 Procedure(s): XR chest 2V Accession Number(s): [id number] cc: Adelaida Carrion NP; HARRISON HOYOS [address] [address] Patient Name: MICHELLE BE MRN: [facility]:[id number] date: 1960 Sex: F Assigned Patient Location: RAD Current Patient Location: MRI Accession/Order Number: [id number] Exam Date: 11/23/2024 12:50 Report Date: 11/23/2024 12:51 At the request of: HARRISON HOYOS Procedure: XR chest 2V PA AND LATERAL CHEST: CLINICAL HISTORY: Pre Operative Testing COMPARISON: 07/24/2024 FINDINGS: Unremarkable cardiomediastinal. Lungs clear. No effusion or pneumothorax. XR/XR chest 2V IMPRESSION: NO ACUTE CARDIOPULMONARY ABNORMALITY. Impression dictated by: Omar Calderon M.D. 11/23/2024 12:51 PM Dictation Location: [place] [address] Electronically authenticated by: [id number] Y Date: 11/23/2024 12:51 Dictated By: Omar Calderon M.D. Signed By: 11/23/24 1254 DD/ 1251 TD/TT: Brake Repairer Bus: [facility] Radiology Study observation (narrative) [facility] XR CHEST 2VOrdered By: [facility] on 11-23-2024 [facility] Work Phone: IGP,APTIMA HPV,AGE GDLNon AGE GDLN ACOG TESTING Note . [facility] Comment on above: TESTS RESULT FLAG UN ITS REF RANGE LAB Clinician Provided Cytology Information Source.............Cervix;Endocervix No. of containers..01 ThinPrep Vial Age Algo ACOG Tona... 30- FLAG LEGEND: L-Low Normal,H-High Normal,LL-Alert Low,HH-Alert High <-Panic Low,>-Panic High,A-Abnormal,AA-Critical Abnormal Performed at: 01 =[address] [address] Farzana Hennessy MD, HPV APTIMA Negative Negative [facility] Comment on above: This nucleic acid am plification test detects fourteen high- risk HPV types (16,18,31,33,35,39,45,51,52,56,58,59,66,68) without differentiation. Performed at: =[address] [id number] Automotive Heavy Mechanic: Farzana Hennessy MD, Phone: [phone] Performed at: [address] [id number] Automotive Heavy Mechanic: Farzana Hennessy MD, Phone: [phone] IGP, APTIMA HPV, RFX 16/18,45 Note . [facility] Comment on above: TESTS RESULT FLAG UN ITS REF RANGE LAB DIAGNOSIS: 02 NEGATIVE FOR INTRAEPITHELIAL LESION OR MALIGNANCY. CELLULAR CHANGES ASSOCIATED WITH ATROPHY ARE PRESENT. Specimen adequacy: 02 Satisfactory for evaluation. Endocervical component may not be distinguished in cases of atrophy. Performed by: 02 Adela Acosta Stay Cutter (ASCP) . 02 Note: Note 02 The [...] <-Panic Low,>-Panic High,A-Abnormal,AA-Critical Abnormal Performed at: [address] [address] Farzana Hennessy MD, BRUSH-SPATULA CERVIX ENDOCERVIX [facility] MR KNEE RIGHT WO IV CONTRAST [...] - bilat eral GE 2 Viewson 09-29-2024 [place] [address] XRay Report Signed Patient: MICHELLE BE MR#: [id number] : 1960 Acct:[id number] Age/Sex: 63 / F ADM Date: 09/29/24 Loc: SA[facility]IL Attending Dr: Elizabeth Culp NP Ordering Physician: Elizabeth Culp NP Date of Service: 09/29/24 Procedure(s): XR hip BHUMI Accession Number(s): [id number] cc: Adelaida Carrion NP; Elizabeth Culp NP [place] [phone] Patient Name: MICHELLE BE MRN: [id number]:[id number] date: 1960 Sex: F Assigned Patient Location: [facility] Current Patient Location: [facility] Accession/Order Number: [id number] Exam Date: 09/29/2024 11:20 Report Date: 09/29/2024 [...] Bernal M.D. 09/29/2024 11:23 AM Dictation Location: [place] [address] Electronically authenticated by: [id number] Y Date: 09/29/2024 11:23 Dictated By: Edith Bernal M.D. Signed By: 09/29/24 1126 DD/ 1123 TD/TT: Brake Repairer Bus: [facility] Radiology, Radiologist, MD - 09/29/2024 [place] [address] XRay Report Signed Patient: MICHELLE BE MR#: [id number] : 1960 Acct:[id number] Age/Sex: 63 / F ADM Date: 09/29/24 Loc: [facility] Attending Dr: Elizabeth Culp NP Ordering Physician: Elizabeth Culp NP Date of Service: 09/29/24 Procedure(s): XR hip BHUMI Accession Number(s): [id number] cc: Adelaida Carrion INTERN; Elizabeth Culp NP The [place] [phone] Patient Name: MICHELLE BE MRN: [facility]:[id number] date: 1960 Sex: F Assigned Patient Location: [facility] Current Patient Location: [facility] Accession/Order Number: [id number] Exam Date: 09/29/2024 11:20 Report Date: 09/29/2024 [...] Bernal M.D. 09/29/2024 11:23 AM Dictation Location: [place] [address] Electronically authenticated by: [id number] Y Date: 09/29/2024 11:23 Dictated By: Edith Bernal M.D. Signed By: 09/29/24 1126 DD/ 1123 TD/TT: Brake Repairer Bus: [facility] Radiology Study observation (narrative) [facility] XR Pelvis AP and Hip - bilat eral GE 2 ViewsOrdered By: Radiologist Radiology on 09-29-2024 [facility] [employer] Work Phone: CT LUNG SCREENING LOW DOSEon 09-26-2024 [place] [address] CT Scan Report Signed Patient: MICHELLE BE MR#: [id number] : 1960 Acct:[id number] Age/Sex: 63 / F ADM Date: 09/26/24 Loc: MAMMO Attending Dr: Adelaida Carrion NP Ordering Physician: Adelaida Carrion NP Date of Service: 09/26/24 Procedure(s): CT lung screening low-dose Accession Number(s): [id number] cc: Adelaida Carrion NP [place] [phone] Patient Name: MICHELLE BE MRN: [id number] date: 1960 Sex: F Assigned Patient Location: [facility] Current Patient Location: RAD Accession/Order Number: [id number] Exam Date: 09/26/2024 16:58 Report Date: 09/26/2024 [...] Guadalupe M.D. 09/26/2024 5:02 PM [facility] authenticated by: [id number] Y Date: 09/26/2024 17:02 Dictated By: Willi Guadalupe M.D. Signed By: 09/26/241703 DD/ 01 TD/TT: Brake Repairer Bus: [facility] Radiology, Radiologist, MD - 09/26/2024 [place] [address] CT Scan Report Signed Patient: MICHELLE BE MR#: [id number] : 1960 Acct:[id number] Age/Sex: 63 / F ADM Date: 09/26/24 Loc: MAMMO Attending Dr: Adelaida Carrion NP Ordering Physician: Adelaida Carrion NP Date of Service: 09/26/24 Procedure(s): CT lung screening low-dose Accession Number(s): [id number] cc: Adelaida Carrion NP The [place] [id number] Patient Name: MICHELLE BE MRN: [id number] date: 1960 Sex: F Assigned Patient Location: [facility] Current Patient Location: RAD Accession/Order Number: [id number] Exam Date: 09/26/2024 16:58 Report Date: 09/26/2024 [...] Guadalupe M.D. 09/26/2024 5:02 PM Dictation Location: [place] [address] Electronically authenticated by: [id number] Y Date: 09/26/2024 17:02 Dictated By: Willi Guadalupe M.D. Signed By: 09/26/24 1704 DD/ 01 TD/TT: Brake Repairer Bus: [facility] Radiology Study observation (narrative) [facility] CT LUNG SCREENING LOW DOSEOr dered By: Radiologist Radiology on 09-26-2024 [facility] [employer] Work Phone: MM TOMOSYNTHESIS SCREENING B Ion 09-26-2024 [place] [id number] Mammography Report Signed Patient: MICHELLE BE MR#: [id number] : 1960 Acct:[id number] Age/Sex: 63 / F ADM Date: 09/26/24 Loc: MAMMO Attending Dr: Adelaida Carrion NP Ordering Physician: Adelaida Carrion NP Results: Date of Service: 09/26/24 Follow Up: Procedure(s): MM tomosynthesis screening BI Accession Number(s): [id number] cc: Adelaida Carrion NP Patient Name: MICHELLE BE MR#: [id number] : 1960 Exam Date: 09/26/2024 Ordering Doctor: LIVIER CARRION RDA RADIOLOGY REPORT PROCEDURE: MM TOMOSYNTHESIS SCREENING BI [...] Treatments None Family Cancers None LOCATION: The [facility] BREAST COMPOSITION: There are scattered [...] M.D. Signed By: 09/26/241642 DD/ 41 TD/TT: Brake Repairer Bus: [facility] Radiology, Radiologist, MD - 09/26/2024 The [place] [id number] Mammography Report Signed Patient: MICHELLE BE MR#: [id number] : 1960 Acct:[id number] Age/Sex: 63 / F ADM Date: 09/26/24 Loc: MAMMO Attending Dr: Adelaida Carrion NP Ordering Physician: Adelaida Carrion NP Results: Date of Service: 09/26/24 Follow Up: Procedure(s): MM tomosynthesis screening BI Accession Number(s): [id number] cc: Adelaida Carrion NP Patient Name: MICHELLE BE MR#: [id number] : 1960 Exam Date: 09/26/2024 Ordering Doctor: LIVIER CARRION RDA RADIOLOGY REPORT PROCEDURE: MM TOMOSYNTHESIS SCREENING BI [...] Treatments None Family Cancers None LOCATION: The [facility] BREAST COMPOSITION: There are scattered [...] M.D. Signed By: 09/26/241642 DD/ 41 TD/TT: Brake Repairer Bus: [facility] [employer] Radiology Study observation (narrative) [facility] [employer] MM TOMOSYNTHESIS SCREENING B IOrdered By: Radiologist Radiology on 09-26-2024 [facility] [employer] Work Phone: XR SHOULDER RT MIN [address] [place] [address] XRay Report Signed Patient: MICHELLE BE MR#: [id number] : 1960 Acct:[id number] Age/Sex: 63 / F ADM Date: 09/26/24 Loc: SAHIL Attending Dr: Elizabeth Culp NP Ordering Physician: Elizabeth Culp NP Date of Service: 09/26/24 Procedure(s): XR shoulder RT min 2V Accession Number(s): [id number] cc: Adelaida Carrion INTERN; Elizabeth Culp NP [place] [id number] Patient Name: MICHELLE BE MRN: [id number] date: 1960 Sex: F Assigned Patient Location: [facility] Current Patient Location: [facility] Accession/Order Number: [id number] Exam Date: 09/26/2024 13:34 Report Date: 09/26/2024 [...] Guadalupe M.D. 09/26/2024 1:35 PM Dictation Location: [place] [address] Electronically authenticated by: [id number] Y Date: 09/26/2024 13:35 Dictated By: Willi Guadalupe M.D. Signed By: 09/26/24 1338 DD/ 34 TD/TT: Brake Repairer Bus: [facility] Radiology, Radiologist, MD - 09/26/2024 [place] [address] XRay Report Signed Patient: MICHELLE BE MR#: [id number] : 1960 Acct:[id number] Age/Sex: 63 / F ADM Date: 09/26/24 Loc: SAHIL Attending Dr: Elizabeth Culp NP Ordering Physician: Elizabeth Culp NP Date of Service: 09/26/24 Procedure(s): XR shoulder RT min 2V Accession Number(s): [id number] cc: Adelaida Carrion INTERN; Elizabeth Culp NP The [place] [id number] Patient Name: MICHELLE BE MRN: [facility]:[id number] date: 1960 Sex: F Assigned Patient Location: [facility] Current Patient Location: [facility] Accession/Order Number: [id number] Exam Date: 09/26/2024 13:34 Report Date: 09/26/2024 [...] Guadalupe M.D. 09/26/2024 1:35 PM Dictation Location: [place] [address] Electronically authenticated by: [id number] Y Date: 09/26/2024 13:35 Dictated By: Willi Guadalupe M.D. Signed By: 09/26/248 DD/ 34 TD/TT: Brake Repairer Bus: [facility] Radiology Study observation (narrative) [facility] XR SHOULDER RT MIN 2VOrdered By: Radiologist Radiology on 09-26-2024 [facility] Work Phone: HbA1c (Bld) [Mass fraction]o n 08-16-2024 Interpretation and review of laboratory results Normal [facility] - Hematology and Cell countson 08-16-2024 HbA1c (Bld) [Mass fraction] 5.6 % [facility] Complete Blood Count Auto Di ffon 03-05-2024 Basophils (Bld) [#/Vol] 0.0 10*3/uL Normal 0.0-0.2 [facility] Comment on above: Result Comment: PERF ORMED BY: [place] [address] PATHOLOGIST AIR CONDITIONING SUPERVISOR ADIEL AGUSTIN M.D. Performed By: #### M G, CBC, CMP #### [facility] [address] [place] [address] [place] Basophils/100 WBC (Bld) 0.5 % Normal . [facility] Comment on above: Performed By: #### M G, CBC, CMP #### [facility] [address] [place] [address] [place] Eosinophils (Bld) [#/Vol] 0.2 10*3/uL Normal 0.0-0.45 The [facility] Comment on above: Performed By: #### M G, CBC, CMP #### [address] Eosinophils/100 WBC (Bld) 2.2 % Normal . [facility] Comment on above: Performed By: #### M G, CBC, CMP #### [address] Erythrocyte distribution width (RBC) [Ratio] 14.5 % Normal 11.9-15.3 [facility] Comment on above: Performed By: #### M G, CBC, CMP #### [address] Hematocrit (Bld) [Volume fraction] 43.0 % Normal 34.0-46.4 [facility] Comment on above: Performed By: #### M G, CBC, CMP #### [address] Hemoglobin (Bld) [Mass/Vol] 14.3 g/dL Normal 11.8-15.4 [facility] Comment on above: Performed By: #### M G, CBC, CMP #### [address] Lymphocytes (Bld) [#/Vol] 1.8 10*3/uL Normal 1.00-4.8 [facility] Comment on above: Performed By: #### M G, CBC, CMP #### [address] Lymphocytes/100 WBC (Bld) 18.9 % Normal . [facility] Comment on above: Performed By: #### M G, CBC, CMP #### [address] MCH (RBC) [Entitic mass] 29.0 pg Normal 24.7-34.3 [facility] Comment on above: Performed By: #### M G, CBC, CMP #### [address] MCV (RBC) [Entitic vol] 87.0 fL Normal 80-100 [facility] Comment on above: Performed By: #### M G, CBC, CMP #### [facility] [address] Mean Corpuscular HGB Conc 33.4 g/dL Normal 32.0-35.0 [facility] Comment on above: Performed By: #### M G, CBC, CMP #### [facility] [address] [place] [address] [place] Monocytes (Bld) [#/Vol] 0.5 10*3/uL Normal 0.0-0.8 The [facility] Comment on above: Performed By: #### M G, CBC, CMP #### [address] Monocytes/100 WBC (Bld) 5.5 % Normal . [facility] Comment on above: Performed By: #### M G, CBC, CMP #### [address] Neutrophils (Bld) [#/Vol] 7.0 10*3/uL Normal 1.8-7.7 [facility] Comment on above: Performed By: #### M G, CBC, CMP #### [place] [address] [place] Neutrophils/100 WBC (Bld) 72.9 % Normal . [facility] Comment on above: Performed By: #### M G, CBC, CMP #### [address] NRBC% 0.0 /100{WBC} Normal 0-0.5 The [facility] Comment on above: Performed By: #### M G, CBC, CMP #### [address] Platelet mean volume (Bld) [Entitic vol] 8.9 fL Normal 6.3-10.7 The [facility] Comment on above: Performed By: #### M G, CBC, CMP #### [place] [address] [place] Platelets (Bld) [#/Vol] 289 10*3/uL Normal 150-450 [facility] Comment on above: Performed By: #### M G, CBC, CMP #### [facility] [address] [place] [address] RBC (Bld) [#/Vol] 4.94 10*6/uL Normal 3.60-5.00 The [facility] Comment on above: Performed By: #### M G, CBC, CMP #### [address] WBC (Bld) [#/Vol] 9.6 10*3/uL Normal 3.8-11.6 The [facility] Comment on above: Performed By: #### M G, CBC, CMP #### [address] Comprehensive Metabolic Pane [place] 03-05-2024 Albumin [Mass/Vol] 4.4 g/dL Normal 3.5-5.7 The [facility] Comment on above: Performed By: #### M G, CBC, CMP #### [address] Albumin/Globulin [Mass ratio] 1.3 {ratio} Normal [facility] Comment on above: Performed By: #### M G, CBC, CMP #### [address] ALP [Catalytic activity/Vol] 79 U/L Normal 34-104 [facility] Comment on above: Performed By: #### M G, CBC, CMP #### [address] ALT [Catalytic activity/Vol] 23 U/L Normal 7-52 [facility] Comment on above: Performed By: #### M G, CBC, CMP #### [address] Anion gap [Moles/Vol] 15.4 mmol/L High 6.0-15.0 Th e [facility] Comment on above: Performed By: #### M G, CBC, CMP #### [address] AST [Catalytic activity/Vol] 36 U/L Normal 13-39 [facility] Comment on above: Performed By: #### M G, CBC, CMP #### [facility] [address] [place] [address] [place] Bilirubin [Mass/Vol] 0.4 mg/dL Normal 0.3-1.0 [facility] Comment on above: Performed By: #### M G, CBC, CMP #### [facility] [address] [place] [address] [place] Calcium [Mass/Vol] 9.5 mg/dL Normal 8.6-10.3 The [facility] Comment on above: Performed By: #### M G, CBC, CMP #### [facility] [address] [place] [address] [place] Chloride [Moles/Vol] 106 mmol/L Normal 98-107 [facility] Comment on above: Performed By: #### M G, CBC, CMP #### [facility] [address] [place] [address] [place] CO2 [Moles/Vol] 23.1 mmol/L Normal 21.0-31.0 The [facility] Comment on above: Performed By: #### M G, CBC, CMP #### [facility] [address] [place] [address] [place] Creatinine [Mass/Vol] 0.96 mg/dL Normal 0.60-1.20 [facility] Comment on above: Performed By: #### M G, CBC, CMP #### [facility] [address] [place] [address] [place] Creatinine Clr Calc Pharmacy 84.51 Normal [facility] Comment on above: Performed By: #### M G, CBC, CMP #### [facility] [address] [place] [address] [place] GFR/1.73 sq M.predicted MDRD (S/P/Bld) [Vol rate/Area] mL/min/{1.73_m2} Normal [facility] Comment on above: Performed By: #### M G, CBC, CMP #### [facility] [address] [place] [address] [place] Globulin (S) [Mass/Vol] 3.3 g/dL Normal [facility] Comment on above: Performed By: #### M G, CBC, CMP #### [address] Glucose [Mass/Vol] 133 mg/dL High 70-100 The [facility] Comment on above: Result Comment: Avenue Glucose Reference Range is dependent on time and content of last meal. Glucose of more than 200 mg/dL in a nonstressed, ambulatory subject supports the diagnosis of Diabetes Mellitus. ADA recommended reference range Performed By: #### M G, CBC, CMP #### [address] Potassium [Moles/Vol] 3.5 mmol/L Normal 3.5-5.1 [facility] Comment on above: Performed By: #### M G, CBC, CMP #### [address] Protein [Mass/Vol] 7.7 g/dL Normal 6.4-8.9 The [facility] Comment on above: Performed By: #### M G, CBC, CMP #### [address] Sodium [Moles/Vol] 141 mmol/L Normal 136-145 The [facility] Comment on above: Performed By: #### M G, CBC, CMP #### [place] [address] [place] Urea nitrogen [Mass/Vol] 18 mg/dL Normal 7-25 [facility] Comment on above: Performed By: #### M G, CBC, CMP #### [address] Magnesiumon 03-05-2024 Magnesium [Mass/Vol] 2.0 mg/dL Normal 1.9-2.7 [facility] Comment on above: Result Comment: PERF ORMED BY: [place] [address] PATHOLOGIST AIR CONDITIONING SUPERVISOR ADIEL AGUSTIN M.D. Performed By: #### M G, CBC, CMP #### [address] Complete Blood Count Auto Di ffon 03-04-2024 Basophils (Bld) [#/Vol] 0.1 10*3/uL Normal 0.0-0.2 [facility] Comment on above: Result Comment: PERF ORMED BY: [place] [address] PATHOLOGIST AIR CONDITIONING SUPERVISOR ADIEL AGUSTIN M.D. Performed By: #### C BC, CMP, MG #### [address] Basophils/100 WBC (Bld) 0.6 % Normal . [facility] Comment on above: Performed By: #### C BC, CMP, MG #### [address] Eosinophils (Bld) [#/Vol] 0.2 10*3/uL Normal 0.0-0.45 [facility] Comment on above: Performed By: #### C BC, CMP, MG #### [address] Eosinophils/100 WBC (Bld) 1.9 % Normal . [facility] Comment on above: Performed By: #### C BC, CMP, MG #### [address] Erythrocyte distribution width (RBC) [Ratio] 14.6 % Normal 11.9-15.3 [facility] Comment on above: Performed By: #### C BC, CMP, MG #### [address] Hematocrit (Bld) [Volume fraction] 43.5 % Normal 34.0-46.4 [facility] Comment on above: Performed By: #### C BC, CMP, MG #### [address] Hemoglobin (Bld) [Mass/Vol] 14.4 g/dL Normal 11.8-15.4 [facility] Comment on above: Performed By: #### C BC, CMP, MG #### [place] [address] [place] Lymphocytes (Bld) [#/Vol] 1.8 10*3/uL Normal 1.00-4.8 [facility] Comment on above: Performed By: #### C BC, CMP, MG #### [address] Lymphocytes/100 WBC (Bld) 18.0 % Normal . [facility] Comment on above: Performed By: #### C BC, CMP, MG #### [address] MCH (RBC) [Entitic mass] 28.8 pg Normal 24.7-34.3 [facility] Comment on above: Performed By: #### C BC, CMP, MG #### [address] MCV (RBC) [Entitic vol] 87.0 fL Normal 80-100 [facility] Comment on above: Performed By: #### C BC, CMP, MG #### [address] Mean Corpuscular HGB Conc 33.2 g/dL Normal 32.0-35.0 [facility] Comment on above: Performed By: #### C BC, CMP, MG #### [address] Monocytes (Bld) [#/Vol] 0.8 10*3/uL Normal 0.0-0.8 [facility] Comment on above: Performed By: #### C BC, CMP, MG #### [place] [address] [place] Monocytes/100 WBC (Bld) 8.2 % Normal . [facility] Comment on above: Performed By: #### C BC, CMP, MG #### [address] Neutrophils (Bld) [#/Vol] 7.3 10*3/uL Normal 1.8-7.7 [facility] Comment on above: Performed By: #### C BC, CMP, MG #### [facility] [address] Neutrophils/100 WBC (Bld) 71.3 % Normal . [facility] Comment on above: Performed By: #### C BC, CMP, MG #### [facility] [address] NRBC% 0.1 /100{WBC} Normal 0-0.5 The [facility] Comment on above: Performed By: #### C BC, CMP, MG #### [facility] [address] Platelet mean volume (Bld) [Entitic vol] 8.8 fL Normal 6.3-10.7 The [facility] Comment on above: Performed By: #### C BC, CMP, MG #### [facility] [address] Platelets (Bld) [#/Vol] 334 10*3/uL Normal 150-450 [facility] Comment on above: Performed By: #### C BC, CMP, MG #### [facility] [address] RBC (Bld) [#/Vol] 5.01 10*6/uL High 3.60-5.00 The [facility] Comment on above: Performed By: #### C BC, CMP, MG #### [address] WBC (Bld) [#/Vol] 10.3 10*3/uL Normal 3.8-11.6 The [facility] Comment on above: Performed By: #### C BC, CMP, MG #### [address] Comprehensive Metabolic Pane [place] 03-04-2024 Albumin [Mass/Vol] 4.5 g/dL Normal 3.5-5.7 The [facility] Comment on above: Performed By: #### C BC, CMP, MG #### [address] Albumin/Globulin [Mass ratio] 1.4 {ratio} Normal [facility] Comment on above: Performed By: #### C BC, CMP, MG #### [facility] [address] ALP [Catalytic activity/Vol] 79 U/L Normal 34-104 [facility] Comment on above: Performed By: #### C BC, CMP, MG #### [facility] [address] [place] [address] [place] ALT [Catalytic activity/Vol] 19 U/L Normal 7-52 [facility] Comment on above: Performed By: #### C BC, CMP, MG #### [facility] [address] Anion gap [Moles/Vol] 11.4 mmol/L Normal 6.0-15.0 [facility] Comment on above: Performed By: #### C BC, CMP, MG #### [address] AST [Catalytic activity/Vol] 37 U/L Normal 13-39 [facility] Comment on above: Performed By: #### C BC, CMP, MG #### [place] [address] [place] Bilirubin [Mass/Vol] 0.5 mg/dL Normal 0.3-1.0 [facility] Comment on above: Performed By: #### C BC, CMP, MG #### [place] [address] [place] Calcium [Mass/Vol] 9.6 mg/dL Normal 8.6-10.3 The [facility] Comment on above: Performed By: #### C BC, CMP, MG #### [place] [address] [place] Chloride [Moles/Vol] 107 mmol/L Normal 98-107 [facility] Comment on above: Performed By: #### C BC, CMP, MG #### [place] [address] [place] CO2 [Moles/Vol] 27.4 mmol/L Normal 21.0-31.0 The [facility] Comment on above: Performed By: #### C BC, CMP, MG #### [facility] [address] Creatinine [Mass/Vol] 0.91 mg/dL Normal 0.60-1.20 [facility] Comment on above: Performed By: #### C BC, CMP, MG #### [facility] [address] [place] [address] [place] Creatinine Clr Calc Pharmacy 90.12 Normal [facility] Comment on above: Performed By: #### C BC, CMP, MG #### [facility] [address] [place] [address] [place] GFR/1.73 sq M.predicted MDRD (S/P/Bld) [Vol rate/Area] mL/min/{1.73_m2} Normal [facility] Comment on above: Performed By: #### C BC, CMP, MG #### [facility] [address] Globulin (S) [Mass/Vol] 3.2 g/dL Normal [facility] Comment on above: Performed By: #### C BC, CMP, MG #### [address] Glucose [Mass/Vol] 100 mg/dL Normal 70-100 The [facility] Comment on above: Result Comment: Avenue Glucose Reference Range is dependent on time and content of last meal. Glucose of more than 200 mg/dL in a nonstressed, ambulatory subject supports the diagnosis of Diabetes Mellitus. ADA recommended reference range Performed By: #### C BC, CMP, MG #### [facility] [address] Potassium [Moles/Vol] 3.8 mmol/L Normal 3.5-5.1 [facility] Comment on above: Performed By: #### C BC, CMP, MG #### [facility] [address] Protein [Mass/Vol] 7.7 g/dL Normal 6.4-8.9 [facility] Comment on above: Performed By: #### C BC, CMP, MG #### [facility] [address] Sodium [Moles/Vol] 142 mmol/L Normal 136-145 [facility] Comment on above: Performed By: #### C BC, CMP, MG #### [facility] [address] [place] [id number] [facility] Urea nitrogen [Mass/Vol] 15 mg/dL Normal 7-25 [facility] Comment on above: Performed By: #### C BC, CMP, MG #### [facility] [address] MR head/brain wo/w conon MR head/brain wo/w con [facility] Main [place] [address] [place] [address] MRI Report Signed Patient: Michelle Be MR#: [id number] : 1960 Acct:[id number] Age/Sex: 63 / F ADM Date: 03/03/24 Loc: Room: [address] [place] [address] Type: ADM IN Attending Dr: Delta Gan [...] Willi Guadalupe M.D.03/04/2024 2:32 PM Dictation Location: [place] [address] Transcribed By: [facility] 03/04/24 1432 Dictated By: Willi Guadalupe II, MD 03/04/24 142 Signed By: 03/04/24 143 Normal [facility] Magnesiumon 03-04-2024 Magnesium [Mass/Vol] 2.0 mg/dL Normal 1.9-2.7 [facility] Comment on above: Result Comment: PERF ORMED BY: [place] [address] PATHOLOGIST AIR CONDITIONING SUPERVISOR ADIEL AGUSTIN M.D. Performed By: #### C BC, CMP, MG #### [address] Complete Blood Count Auto Di ffon 03-03-2024 Basophils (Bld) [#/Vol] 0.1 10*3/uL Normal 0.0-0.2 [facility] Comment on above: Order Comment: WEN BELLA,160 Result Comment: PERF ORMED BY: [place] [address] PATHOLOGIST AIR CONDITIONING SUPERVISOR ADIEL AGUSTIN M.D. Performed By: #### C BC, CMP #### [address] Basophils/100 WBC (Bld) 0.6 % Normal . [facility] Comment on above: Order Comment: WEN BELLA,160 Performed By: #### C BC, CMP #### [address] [place] [address] [place] Eosinophils (Bld) [#/Vol] 0.1 10*3/uL Normal 0.0-0.45 [facility] Comment on above: Order Comment: RIN T O COME TRY,KAH,[id number] Performed By: #### C BC, CMP #### [address] Eosinophils/100 WBC (Bld) 1.0 % Normal . [facility] Comment on above: Order Comment: RIN T O COME TRY,KAH,[id number] Performed By: #### C BC, CMP #### [address] Erythrocyte distribution width (RBC) [Ratio] 14.6 % Normal 11.9-15.3 [facility] Comment on above: Order Comment: RIN T O COME TRY,KAH,160 Performed By: #### C BC, CMP #### [address] Hematocrit (Bld) [Volume fraction] 42.9 % Normal 34.0-46.4 [facility] Comment on above: Order Comment: RIN T O COME TRY,KAH,[id number] Performed By: #### C BC, CMP #### [address] Hemoglobin (Bld) [Mass/Vol] 14.5 g/dL Normal 11.8-15.4 [facility] Comment on above: Order Comment: RIN T O COME TRY,KAH,160 Performed By: #### C BC, CMP #### [place] [address] [place] Lymphocytes (Bld) [#/Vol] 1.7 10*3/uL Normal 1.00-4.8 [facility] Comment on above: Order Comment: RIN T O COME TRY,KAH,160 Performed By: #### C BC, CMP #### [place] [address] [place] Lymphocytes/100 WBC (Bld) 15.7 % Normal . [facility] Comment on above: Order Comment: RIN T O COME TRY,KAH,1607 Performed By: #### C BC, CMP #### [address] MCH (RBC) [Entitic mass] 29.1 pg Normal 24.7-34.3 [facility] Comment on above: Order Comment: RIN T O COME TRY,KAH,1607 Performed By: #### C BC, CMP #### [address] MCV (RBC) [Entitic vol] 85.9 fL Normal 80-100 [facility] Comment on above: Order Comment: RIN T O COME TRY,KAH,1607 Performed By: #### C BC, CMP #### [address] Mean Corpuscular HGB Conc 33.8 g/dL Normal 32.0-35.0 [facility] Comment on above: Order Comment: RIN T O COME TRY,KAH,1607 Performed By: #### C BC, CMP #### [address] Monocytes (Bld) [#/Vol] 0.9 10*3/uL High 0.0-0.8 [facility] Comment on above: Order Comment: RIN T O COME TRY,KAH,1607 Performed By: #### C BC, CMP #### [address] Monocytes/100 WBC (Bld) 8.4 % Normal . [facility] Comment on above: Order Comment: RIN T O COME TRY,KAH,1607 Performed By: #### C BC, CMP #### [address] Neutrophils (Bld) [#/Vol] 8.0 10*3/uL High 1.8-7.7 [facility] Comment on above: Order Comment: RIN T O COME TRY,KAH,1607 Performed By: #### C BC, CMP #### [place] [address] [place] Neutrophils/100 WBC (Bld) 74.3 % Normal . [facility] Comment on above: Order Comment: RIN T O COME TRY,KAH,1607 Performed By: #### C BC, CMP #### [address] NRBC% 0.1 /100{WBC} Normal 0-0.5 The [facility] Comment on above: Order Comment: RIN T O COME TRY,KAH,1607 Performed By: #### C BC, CMP #### [address] Platelet mean volume (Bld) [Entitic vol] 8.9 fL Normal 6.3-10.7 The [facility] Comment on above: Order Comment: RIN T O COME TRY,KAH,1607 Performed By: #### C BC, CMP #### [address] Platelets (Bld) [#/Vol] 291 10*3/uL Normal 150-450 [facility] Comment on above: Order Comment: RIN T O COME TRY,KAH,1607 Performed By: #### C BC, CMP #### [address] RBC (Bld) [#/Vol] 4.99 10*6/uL Normal 3.60-5.00 The [facility] Comment on above: Order Comment: RIN T O COME TRY,KAH,1607 Performed By: #### C BC, CMP #### [address] WBC (Bld) [#/Vol] 10.7 10*3/uL Normal 3.8-11.6 The [facility] Comment on above: Order Comment: RIN T O COME TRY,KAH,1607 Performed By: #### C BC, CMP #### [address] Comprehensive Metabolic Pane [place] 03-03-2024 Albumin [Mass/Vol] 4.6 g/dL Normal 3.5-5.7 The [facility] Comment on above: Order Comment: RIN T O COME TRY,KAH,1607 Performed By: #### C BC, CMP #### [address] Albumin/Globulin [Mass ratio] 1.4 {ratio} Normal [facility] Comment on above: Order Comment: RIN T O COME TRY,KAH,1607 Performed By: #### C BC, CMP #### [address] ALP [Catalytic activity/Vol] 80 U/L Normal 34-104 [facility] Comment on above: Order Comment: RIN T O COME TRY,KAH,1607 Performed By: #### C BC, CMP #### [address] ALT [Catalytic activity/Vol] 16 U/L Normal 7-52 [facility] Comment on above: Order Comment: RIN T O COME TRY,KAH,1607 Performed By: #### C BC, CMP #### [address] Anion gap [Moles/Vol] 13.6 mmol/L Normal 6.0-15.0 [facility] Comment on above: Order Comment: RIN T O COME TRY,KAH,1607 Performed By: #### C BC, CMP #### [address] AST [Catalytic activity/Vol] 35 U/L Normal 13-39 [facility] Comment on above: Order Comment: RIN T O COME TRY,KAH,1607 Performed By: #### C BC, CMP #### [address] Bilirubin [Mass/Vol] 0.3 mg/dL Normal 0.3-1.0 [facility] Comment on above: Order Comment: RIN T O COME TRY,KAH,1607 Performed By: #### C BC, CMP #### [address] Calcium [Mass/Vol] 9.3 mg/dL Normal 8.6-10.3 The [facility] Comment on above: Order Comment: RIN T O COME TRY,KAH,1607 Performed By: #### C BC, CMP #### [address] Chloride [Moles/Vol] 109 mmol/L High 98-107 [facility] Comment on above: Order Comment: RIN T O COME TRY,KAH,1607 Performed By: #### C BC, CMP #### [facility] [address] CO2 [Moles/Vol] 22.4 mmol/L Normal 21.0-31.0 The [facility] Comment on above: Order Comment: RIN T O COME TRY,KAH,160 Performed By: #### C BC, CMP #### [facility] [address] Creatinine [Mass/Vol] 0.93 mg/dL Normal 0.60-1.20 [facility] Comment on above: Order Comment: RIN T O COME TRY,KAH,160 Performed By: #### C BC, CMP #### [address] Creatinine Clr Calc Pharmacy 87.94 Normal [facility] Comment on above: Order Comment: RIN T O COME TRY,KAH,160 Result Comment: PERF ORMED BY: [place] [address] PATHOLOGIST AIR CONDITIONING SUPERVISOR ADIEL AGUSTIN M.D. Performed By: #### C BC, CMP #### [address] GFR/1.73 sq M.predicted MDRD (S/P/Bld) [Vol rate/Area] mL/min/{1.73_m2} Normal [facility] Comment on above: Order Comment: RIN T O COME TRY,KAH,160 Performed By: #### C BC, CMP #### [address] Globulin (S) [Mass/Vol] 3.2 g/dL Normal [facility] Comment on above: Order Comment: RIN T O COME TRY,KAH,160 Performed By: #### C BC, CMP #### [facility] [address] [place] [id number] [facility] Glucose [Mass/Vol] 105 mg/dL High 70-100 [facility] Comment on above: Order Comment: REY PORRAS,WEN,160 Result Comment: Avenue Glucose Reference Range is dependent on time and content of last meal. Glucose of more than 200 mg/dL in a nonstressed, ambulatory subject supports the diagnosis of Diabetes Mellitus. ADA recommended reference range Performed By: #### C BC, CMP #### [facility] [address] [place] [id number] [facility] Potassium [Moles/Vol] 4.0 mmol/L Normal 3.5-5.1 [facility] Comment on above: Order Comment: REY PORRAS,KAH,160 Performed By: #### C BC, CMP #### [facility] [address] [place] [id number] [facility] Protein [Mass/Vol] 7.8 g/dL Normal 6.4-8.9 [facility] Comment on above: Order Comment: REY PORRAS,KAH,160 Performed By: #### C BC, CMP #### [facility] [address] [place] [phone] [place] Sodium [Moles/Vol] 141 mmol/L Normal 136-145 [facility] Comment on above: Order Comment: REY PORRAS,KAH,160 Performed By: #### C BC, CMP #### [facility] [address] [place] [phone] [place] Urea nitrogen [Mass/Vol] 15 mg/dL Normal 7-25 [facility] Comment on above: Order Comment: REY PORRAS,KAH,160 Performed By: #### C BC, CMP #### [facility] [address] [place] [phone] [place] IGP,APTIMA HPV,AGE GDLNon AGE GDLN ACOG TESTING Note . [facility] Comment on above: TESTS RESULT FLAG UN ITS REF RANGE LAB Clinician Provided Cytology Information Source.............Cervix;Endocervix No. of containers..01 ThinPrep Vial Age Gigi WILDE Tona... 3065 FLAG LEGEND: L-Low Normal,H-High Normal,LL-Alert Low,HH-Alert High <-Panic Low,>-Panic High,A-Abnormal,AA-Critical Abnormal Performed at: 01 =G [address] [phone] Farzana Hennessy MD, HPV APTIMA Negative Negative [facility] Comment on above: This nucleic acid am plification test detects fourteen high- risk HPV types (16,18,31,33,35,39,45,51,52,56,58,59,66,68) without differentiation. Performed at: =[address] [id number] Automotive Heavy Mechanic: Farzana Hennessy MD, Phone: [phone] Performed at: [facility] [address] [place] [id number] Automotive Heavy Mechanic: Scott Sandoval MD, Phone: [phone] IGP, APTIMA HPV, RFX 16/18,45 Note . [facility] Comment on above: TESTS RESULT FLAG UN ITS REF RANGE LAB DIAGNOSIS: 02 NEGATIVE FOR INTRAEPITHELIAL LESION OR MALIGNANCY. Specimen adequacy: 02 Satisfactory for evaluation. Endocervical and/or squamous metaplastic cells (endocervical component) are present. Performed by: 02 Adelaida Bustamante, Network Applications Specialist ([facility]) . 02 Note: Note 03 The [...] High,A-Abnormal,AA-Critical Abnormal Performed at: 02 [facility] [address] [place] [address] Scott Sandoval MD, 03 WB [facility] [address] [address] Farzana Hennessy MD, BROOM-ALONE CERVIX [facility] Urinalysis macro (dipstick) panel (U)on 01-28-2024 Bilirubin, UA Negative Negative - 4(70) +++ mg/dL [facility] Blood, UA Negative Negative - 50 Kranthi/mcL [facility] Clarity, UA Clear [facility] Color, UA Dark Tania [facility] Glucose, UA Negative Negative - 2000(110) ++++ mg/dL [facility] Interpretation and review of laboratory results Abnormal [facility] Ketones, UA Negative Negative - 160(16) ++++ mg/dL [facility] Leukocytes, UA Trace Negative - 500+++ Radha/mcL [facility] Nitrite, UA Negative Negative - Positive [facility] pH, UA 5.5 5 - 9 [facility] Protein, UA Negative Negative - 2000(20) ++++ mg/dL [facility] Spec Grav, UA 1.025 1 - 1.03 [facility] Urobilinogen, UA 0.2 0.2 - 12 mg/dL [facility] MHPT CULT,URINEon 01-23-2024 Interpretation and review of laboratory results Abnormal [facility] MHPT CULT,URINE Specimen Description .CLEAN CATCH URINE [facility] MHPT CULT,URINE Culture ESCHERICHIA COLI >100,000 CFU/ML Ab[facility]REPTOCOCCI, BETA HEMOLYTIC GROUP B 10 to 50,000 CFU/ML [facility] Report Status FINAL 01/23/2024 [facility] MHPT CULT,URINE SUSCEPTIBILITY [facility] MHPT CULT,URINE Organism ESCHERICHIA COLI [facility] Method CROW [facility] MHPT CULT,URINE Ampicillin 16 INTERMEDIATE Intermediate [facility] Cefazolin <=4 SUSCEPTIBLE Susceptible [facility] Cefazolin sensitivit y results can be used to predict the effectiveness of oral Susceptible [facility] cephalosporins (eg. Cephalexin) in uncomplicated Urinary Tract Infections due Susceptible [facility] MHPT CULT,URINE to E. coli, K. pneumoniae, and P. mirabilis Susceptible [facility] MHPT CULT,URINE Ceftriaxone <=0.25 SUSCEPTIBLE Susceptible [facility] MHPT CULT,URINE Negative Susceptible [facility] MHPT CULT,URINE Gentamicin <=1 SUSCEPTIBLE Susceptible [facility] MHPT CULT,URINE Levofloxacin <=0.12 SUSCEPTIBLE Susceptible [facility] MHPT CULT,URINE Nitrofurantoin <=16 SUSCEPTIBLE Susceptible [facility] MHPT CULT,URINE Piperacillin/Tazobac ta m <=4 SUSCEPTIBLE Susceptible [facility] MHPT CULT,URINE Tobramycin <=1 SUSCEPTIBLE Susceptible [facility] MHPT CULT,URINE Trimethoprim/Sulfa <=20 SUSCEPTIBLE Susceptible [facility] Original Ordering Provider: RICHA DAVENPORT [facility] ALL BASIC METABOLIC PANELon 01-05-2024 Anion gap [Moles/Vol] 11.1 mmol/L [facility] Calcium [Mass/Vol] 9.2 mg/dL 8.5 - 10. 1 mg/dL [facility] Chloride [Moles/Vol] 105 mmol/L 98 - 10 7 mmol/L [facility] CO2 [Moles/Vol] 28.0 mmol/L 21.0 - 32.0 mmol/L [facility] Creatinine [Mass/Vol] 1.08 mg/dL High 0.55 - 1.02 mg/dL [facility] GFR/1.73 sq M.predicted CKD-EPI (S/P/Bld) [Vol rate/Area] >60 60 - PINF [facility] Glucose [Mass/Vol] 92 mg/dL 74 - 106 mg/dL [facility] Interpretation and review of laboratory results Abnormal [facility] Potassium [Moles/Vol] 4.1 mmol/L 3.5 - 5.1 mmol/L [facility] Sodium [Moles/Vol] 140 mmol/L 136 - 145 mmol/L [facility] TBH EGFR-NON AF KYRGYZ 51 Low 60 - PINF [facility] Urea nitrogen [Mass/Vol] 17.0 mg/dL 7.0 - 18.0 mg/dL [facility] Urea nitrogen/Creatinine [Mass ratio] 15.7 mg/mg [facility] Amphetamine Screen Ql (U)Ord ered By: Jace Graham on 03-23-2023 Amphetamines Ql (U) Negative Negative [facility] Barbiturates [Presence] in U rine by Screen methodOrdered By: Jace Graham on 03-23-2023 Barbiturates Screen Ql (U) Negative Negative [facility] Benzodiazepines Screen Ql (U )Ordered By: Jace Graham on 03-23-2023 Benzodiazepines Ql (U) Negative Negative [facility] Benzoylecgonine [Presence] i n Urine by Screen methodOrdered By: Jace Graham on 03-23-2023 Benzoylecgonine Screen Ql (U) Negative Negative [facility] Cannabinoids [Presence] in U rine by Screen methodOrdered By: Jace Graham on 03-23-2023 Cannabinoids Screen Ql (U) Negative Negative [facility] Comment on above: These are unconfirme d results and should not be used for legal purposes. Drug Cut-Off Concentration: AMPH 1000 ng/mL ELKIN 200 ng/mL ATIYA 200 ng/mL COCM 300 ng/mL OP 300 ng/mL PCP 25 ng/mL THC 20 ng/mL Opiates [Presence] in Urine by Screen methodOrdered By: Jace Graham on 03-23-2023 Opiates Screen Ql (U) Negative Negative [facility] Phencyclidine Screen Ql (U)O rdered By: Jace Graham on 03-23-2023 Phencyclidine Ql (U) Negative Negative [facility] Cholesterol [Mass/volume] in Serum or PlasmaOrdered By: Eduardo Monk on 11-18-2022 Cholesterol [Mass/Vol] 159 mg/dL 140-200 [facility] Comment on above: Chol less than 200 m g/dl low riskChol 201-239 mg/dl borderline riskChol 240 mg/dl and greater high risk Cholesterol in LDL Calc [Mas s/Vol]Ordered By: Eduardo Monk on 11-18-2022 Cholesterol in LDL [Mass/Vol] 84 mg/dL 0-100 [facility] Comment on above: LDL ATP III CLASSIFI CATIONLDL less than 100 mg/dL OptimalLDL 100-129 mg/dL Near or above optimalLDL 130-159 mg/dL Borderline highLDL 160-189 mg/dL HighLDL greater than 189 mg/dL Very high Cholesterol in VLDL Calc [Ma ss/Vol]Ordered By: Eduardo Monk on 11-18-2022 Cholesterol in VLDL [Mass/Vol] 28 mg/dL [facility] Serum or plasma high density lipoprotein (HDL) cholesterol measurementOrdered By: Eduardo Monk on 11-18-2022 Cholesterol in HDL [Mass/Vol] 46 mg/dL 23-92 [facility] Comment on above: HDL CHOL ATP-III CLA SSIFICATION Cardiovascular RiskHDL > or equal to 60 mg/dL LOWHDL < 40 mg/dL HIGH Serum or plasma total choles terol/high density lipoprotein (HDL) cholesterol mass ratOrdered By: Eduardo Monk on 11-18-2022 Cholesterol.total/Chol esterol in HDL [Mass ratio] 3.5 {ratio} <5.0 [facility] Thyrotropin [Units/volume] i n Serum or PlasmaOrdered By: Eduardo Monk on 11-18-2022 TSH Qn 2.13 m[IU]/L 0.45-5.33 [facility] Triglyceride [Mass/volume] i n Serum or PlasmaOrdered By: Eduardo Monk on 11-18-2022 Triglyceride [Mass/Vol] 144 mg/dL 0-149 [facility] Comment on above: TRIG ATP III CLASSIF ICATIONTRIG less than 150 mg/dL NormalTRIG 150-199 mg/dL Borderline highTRIG 200-500 mg/dL High TRIG greater than 500 mg/dL Very highStandard traceable to the Center for Disease Conrtrol and Prevention (CDC) test method. Vitamin D+Metabolites [Mass/ volume] in Serum or PlasmaOrdered By: Eduardo Monk on 11-18-2022 Vitamin D+Metabolites [Mass/Vol] 50.4 ng/mL 30-100 [facility] Comment on above: VITAMIN D STATUS 25( [place])VITAMIN D RANGE (ng/mL) Deficient <20 Insufficient 20 to <30Sufficient 30 to 100Reference: Bin MF,Lakshmi CABRERA, Cristian SMART, et al. Evaluation,treatment, and prevention of vitamin D deficiency; an Endocrine Society clinical practice guideline. JCEM. 2010; 96(7):1911-30. CBC AUTO DIFFon 07-25-2022 BASO # 0.1 103/ul Normal 0.0-0.1 [facility] Comment on above: Performed By: #### A 1C #### [facility] [address] [address] [address] Bebeto Alvarado Basophils/100 WBC (Bld) 0.6 % Normal 0.2-2.0 [facility] Comment on above: Performed By: #### A 1C #### [facility] [address] [place], [place] [address] Dr. Bebeto Alvarado EO # 0.2 103/ul Normal 0.0-0.7 [facility] Comment on above: Performed By: #### A 1C #### [facility] [address] [place] [address] Dr. Bebeto Alvarado Eosinophils/100 WBC (Bld) 2.3 % Normal 0.9-7.0 [facility] Comment on above: Performed By: #### A 1C #### [facility] [address] [place] [address] Dr. Bebeto Alvarado Erythrocyte distribution width (RBC) [Ratio] 13.8 % Normal 11.0-15.0 [facility] Comment on above: Performed By: #### A 1C #### [facility] [address] [place] [address] Dr. Bebeto Alvarado Hematocrit (Bld) [Volume fraction] 41.2 % Normal 36.0-48.0 [facility] Comment on above: Performed By: #### A 1C #### [facility] [address] [place] [address] Dr. Bebeto Alvarado Hemoglobin (Bld) [Mass/Vol] 13.2 g/dL Normal 12.0-16.0 [facility] Comment on above: Performed By: #### A 1C #### [facility] [address] [place] [address] Dr. Bebeto Alvarado IG # 0.03 10e3/ul Normal 0.00-0.03 [facility] Comment on above: Performed By: #### A 1C #### [facility] [address] [place] [address] Dr. Bebeto Alvarado IG % 0.4 % Normal 0.0-0.5 [facility] Comment on above: Performed By: #### A 1C #### [facility] [address] [place] [address] Dr. Bebeto Alvarado LYMPH # 2.1 103/ul Normal 1.2-3.8 [facility] Comment on above: Performed By: #### A 1C #### [facility] [address] [place] [address] Dr. Bebeto Alvarado Lymphocytes/100 WBC (Bld) 25.9 % Normal 20.5-60.0 [facility] Comment on above: Performed By: #### A 1C #### [facility] [address] [place] [address] Dr. Bebeto Alvarado MANUAL DIFF REQ NO Normal [facility] Comment on above: Performed By: #### A 1C #### [facility] [address] [place] [address] Dr. Bebeto Alvarado MCH (RBC) [Entitic mass] 28.0 pg Normal 26.7-34.0 [facility] Comment on above: Performed By: #### A 1C #### [facility] [address] [place] [address] Dr. Bebeto Alvarado MCHC (RBC) [Mass/Vol] 32.0 g/dL Normal 29.9-35.2 [facility] Comment on above: Performed By: #### A 1C #### [facility] [address] [place] [address] Dr. Bebeto Alvarado MCV (RBC) [Entitic vol] 87.5 fL Normal 81.0-99.0 [facility] Comment on above: Performed By: #### A 1C #### [facility] [address] [place] [address] Dr. Bebeto Alvarado MONO # 0.5 103/ul Normal 0.3-0.8 [facility] Comment on above: Performed By: #### A 1C #### [facility] [address] [place] [address] Dr. Bebeto Alvarado Monocytes/100 WBC (Bld) 6.6 % Normal 1.7-12.0 [facility] Comment on above: Performed By: #### A 1C #### [facility] [address] [place] [address] Dr. Bebeto Alvarado NEUT # 5.1 103/ul Normal 1.4-6.5 [facility] Comment on above: Performed By: #### A 1C #### [facility] [address] [place] [address] Dr. Bebeto Alvarado Neutrophils/100 WBC (Bld) 64.2 % Normal 43.0-75.0 [facility] Comment on above: Performed By: #### A 1C #### [facility] [address] [place] [address] Dr. Bebeto Alvarado Platelet mean volume (Bld) [Entitic vol] 11.2 fL Normal 9.5-13.5 [facility] Comment on above: Performed By: #### A 1C #### [facility] [address] [place] [address] Dr. Bebeto Alvarado PLT 252 103/ul Normal 150-450 [facility] Comment on above: Performed By: #### A 1C #### [facility] [address] [address] [address] Bebeto Alvarado RBC 4.71 106/ul Normal 4.20-5.40 [facility] Comment on above: Performed By: #### A 1C #### [facility] [address] [place] [address] Dr. Bebeto Alvarado WBC 8.0 103/ul Normal 4.0-11.0 [facility] Comment on above: Performed By: #### A 1C #### [facility] [address] [place] [address] Dr. Bebeto Alvarado GLYCOHEMOGLOBIN A1Con 2022 ADA RECOMMENDATION SEE BELOW Normal [facility] Comment on above: Result Comment: ADA RECOMMENDED LIMIT 4.0 - 6.0 ADA THERAPEUTIC TARGET < 7.0 ACTION SUGGESTED > 7.0 Performed By: #### A 1C #### [facility] [address] [place] [address] Dr. Bebeto Alvarado Glucose [Mass/Vol] 114 mg/dL Normal [facility] Comment on above: Performed By: #### A 1C #### [facility] [address] [place] [address] Dr. Bebeto Alvarado HbA1c (Bld) [Mass fraction] 5.6 % Normal 4.5-6.2 [facility] Comment on above: Performed By: #### A 1C #### [facility] [address] [place] [address] Dr. Bebeto Alvarado IRONon 07-25-2022 Iron [Mass/Vol] 60.0 ug/dL Normal 50.0-170.0 [facility] Comment on above: Performed By: #### V ITB12, IRON #### [facility] [address] [address] [address] Bebeto Alvarado LIPID PROFILEon 07-25-2022 CHOL-HDL RATIO NORM SEE BELOW Normal [facility] [facility] Comment on above: Result Comment: 3.3 - 4.4 LOW RISK 4.4 - 7.1 AVERAGE RISK 7.1 - 11.0 MODERATE RISK >11.0 HIGH RISK Performed By: #### C MP, LIPID #### [facility] [address] [address] [address] Bebeto Alvarado Cholesterol [Mass/Vol] 144 mg/dL Normal <=200 [facility] Comment on above: Performed By: #### C MP, LIPID #### [facility] [address] [address] [address] Bebeto Alvarado Cholesterol in HDL [Mass/Vol] 39 mg/dL Critically low 40-60 [facility] Comment on above: Performed By: #### C MP, LIPID #### [facility] [address] [address] [address] Bebeto Alvarado Cholesterol in LDL [Mass/Vol] 74.6 mg/dL Normal [facility] Comment on above: Performed By: #### C MP, LIPID #### [facility] [address] [address] [address] Bebeto Alvarado Cholesterol.total/Chol esterol in HDL [Mass ratio] 3.7 {ratio} Normal [facility] Comment on above: Performed By: #### C MP, LIPID #### [facility] [address] [address] [address] Bebeto Alvarado HDL NORMAL > or = 60 mg/dl - LO W CARDIOVASCULAR RISK <40 mg/dl - HIGH CARDIOVASCULAR RISK Normal [facility] Comment on above: Performed By: #### C MP, LIPID #### [facility] [address] [address] [address] Bebeto Alvarado LDL CALC NORMAL SEE BELOW Normal [facility] Comment on above: Result Comment: <100 mg/dl OPTIMAL 100 - 129 mg/dl NEAR OR ABOVE OPTIMAL 130 - 159 mg/dl BORDERLINE HIGH 160 - 189 mg/dl HIGH >190 mg/dl VERY HIGH Performed By: #### C MP, LIPID #### [facility] [address] [place] [address] Dr. Bebeto Alvarado Triglyceride [Mass/Vol] 152 mg/dL Critically high <=150 [facility] Comment on above: Performed By: #### C MP, LIPID #### [facility] [address] [place] [address] Dr. Bebeto Alvarado VLDL CALC 30.4 mg/dL Normal [facility] Comment on above: Performed By: #### C MP, LIPID #### [facility] [address] [place] [address] Dr. Bebeto Alvarado PROF 14(COMP METB)on 023 Albumin [Mass/Vol] 3.7 g/dL Normal 3.4-5.0 [facility] Comment on above: Performed By: #### C MP, LIPID #### [facility] [address] [place] [address] Dr. Bebeto Alvarado Albumin/Globulin [Mass ratio] 0.9 {ratio} Normal [facility] Comment on above: Performed By: #### C MP, LIPID #### [facility] [address] [place] [address] Dr. Bebeto Alvarado ALP [Catalytic activity/Vol] 90 U/L Normal 46-116 [facility] Comment on above: Performed By: #### C MP, LIPID #### [facility] [address] [place] [address] Dr. Bebeto Alvarado ALT [Catalytic activity/Vol] 38 U/L Normal 14-59 [facility] Comment on above: Performed By: #### C MP, LIPID #### [facility] [address] [place] [address] Dr. Bebeto Alvarado Anion gap [Moles/Vol] 12.1 mmol/L Normal [facility] Comment on above: Performed By: #### C MP, LIPID #### [facility] [address] [place] [address] Dr. Bebeto Alvarado AST [Catalytic activity/Vol] 26 U/L Normal 15-37 [facility] Comment on above: Performed By: #### C MP, LIPID #### [facility] [address] [place] [address] Dr. Bebeto Alvarado Bilirubin [Mass/Vol] 0.3 mg/dL Normal 0.2-1.0 [facility] Comment on above: Performed By: #### C MP, LIPID #### [facility] [address] [place] [address] Dr. Bebeto Alvarado Calcium [Mass/Vol] 9.3 mg/dL Normal 8.5-10.1 [facility] Comment on above: Performed By: #### C MP, LIPID #### [facility] [address] [place] [address] Dr. Bebeto Alvarado Chloride [Moles/Vol] 107 mmol/L Normal 98-107 [facility] Comment on above: Performed By: #### C MP, LIPID #### [facility] [address] [place] [address] Dr. Bbeeto Alvarado CO2 [Moles/Vol] 27.9 mmol/L Normal 21.0-32.[address] [facility] Comment on above: Performed By: #### C MP, LIPID #### [facility] [address] [place] [address] Dr. Bebeto Alvarado Creatinine [Mass/Vol] 0.95 mg/dL Normal 0.55-1.02 [facility] Comment on above: Performed By: #### C MP, LIPID #### [facility] [address] [place] [address] Dr. Bebeto Alvarado EGFR-AF KYRGYZ >60 Normal >=60 [facility] Comment on above: Performed By: #### C MP, LIPID #### [facility] [address] [place] [address] Dr. Bebeto Alvarado EGFR-NON AF KYRGYZ 60 mL/min/1.73m2 Normal >=60 [facility] Comment on above: Performed By: #### C MP, LIPID #### [facility] [address] [place] [address] Dr. Bebeto Alvarado Globulin (S) [Mass/Vol] 3.9 g/dL Normal [facility] Comment on above: Performed By: #### C MP, LIPID #### [facility] [address] [place] [address] Dr. Bebeto Alvarado Glucose [Mass/Vol] 108 mg/dL Critically high 74-106 [facility] Comment on above: Performed By: #### C MP, LIPID #### [facility] [address] [place] [address] Dr. Bebeto Alvarado Potassium [Moles/Vol] 4.0 mmol/L Normal 3.5-5.1 [facility] Comment on above: Performed By: #### C MP, LIPID #### [facility] [address] [place] [address] Dr. Bebeto Alvarado Protein [Mass/Vol] 7.6 g/dL Normal 6.4-8.2 [facility] Comment on above: Performed By: #### C MP, LIPID #### [facility] [address] [place] [address] Dr. Bebeto Alvarado Sodium [Moles/Vol] 143 mmol/L Normal 136-145 [facility] Comment on above: Performed By: #### C MP, LIPID #### [facility] [address] [place] [address] Dr. Bebeto Alvarado Urea nitrogen [Mass/Vol] 15.0 mg/dL Normal 7.0-18.0 [facility] Comment on above: Performed By: #### C MP, LIPID #### [facility] [address] [place] [address] Dr. Bebeto Alvarado Urea nitrogen/Creatinine [Mass ratio] 15.8 mg/mg Normal [facility] Comment on above: Performed By: #### C MP, LIPID #### [facility] [address] [place] [address] Dr. Bebeto Alvarado UA RANDOM W/MICROSCOPICon BACTERIA NONE SEEN Normal NONE SEEN [facility] Comment on above: Performed By: #### A 1C #### [facility] [address] [place] [address] Dr. Bebeto Alvarado Bilirubin Ql (U) Negative Normal NEGATIVE [facility] Comment on above: Performed By: #### A 1C #### [facility] [address] [place] [address] Dr. Bebeto Alvarado CAST NONE SEEN Normal NONE SEEN [facility] Comment on above: Performed By: #### A 1C #### [facility] [address] [place] [address] Dr. Bebeto Alvarado Clarity (U) CLEAR Normal CLEAR [facility] Comment on above: Performed By: #### A 1C #### [facility] [address] [place] [address] Dr. Bebeto Alvarado Color (U) YELLOW Normal YELLOW [facility] Comment on above: Performed By: #### A 1C #### [facility] [address] [place] [address] Dr. Bebeto Alvarado Crystals LM Nom (Urine sed) NONE SEEN Normal NONE SEEN [facility] Comment on above: Performed By: #### A 1C #### [facility] [address] [place] [address] Dr. Bebeto Alvarado Epithelial cells LM Ql (Urine sed) NONE SEEN Normal NONE SEEN /RARE [facility] Comment on above: Performed By: #### A 1C #### [facility] [address] [place] [address] Dr. Bebeto Alvarado Glucose Ql (U) Negative Normal NEGATIVE [facility] Comment on above: Performed By: #### A 1C #### [facility] [address] [place] [address] Dr. Bebeto Alvarado Hemoglobin Ql (U) Negative Normal NEGATIVE [facility] Comment on above: Performed By: #### A 1C #### [facility] [address] [place] [address] Dr. Bebeto Alvarado Ketones Ql (U) Negative Normal NEGATIVE [facility] Comment on above: Performed By: #### A 1C #### [facility] [address] [place] [address] Dr. Bebeto Alvarado LEUKOCYTES Negative Normal NEGATIVE [facility] Comment on above: Performed By: #### A 1C #### [facility] [address] [place] [address] Dr. Bebeto Alvarado MUCOUS NONE SEEN Normal NONE SEEN [facility] Comment on above: Performed By: #### A 1C #### [facility] [address] [place] [address] Dr. Bebeto Alvarado Nitrite Ql (U) Negative Normal NEGATIVE [facility] Comment on above: Performed By: #### A 1C #### [facility] [address] [place] [address] Dr. Bebeto Alvarado pH (U) 5.5 [pH] Normal 5-9 [facility] Comment on above: Performed By: #### A 1C #### [facility] [address] [place] [address] Dr. Bebeto Alvarado RBC NONE SEEN Abnormal 0-2 [facility] Comment on above: Performed By: #### A 1C #### [facility] [address] [place] [address] Dr. Bebeto Alvarado SPEC GRAVITY 1.030 Abnormal 1.005-<=1.02 5 [facility] Comment on above: Performed By: #### A 1C #### [facility] [address] [place] [address] Dr. Bebeto Alvarado UA PROTEIN Negative Normal NEGATIVE/ TRACE [facility] Comment on above: Performed By: #### A 1C #### [facility] [address] [place] [address] Dr. Bebeto Alvarado Urobilinogen Qn (U) 0.2 {Katerin'U}/dL Normal 0.2 - 1. 0 [facility] Comment on above: Performed By: #### A 1C #### [facility] [address] [place] [address] Dr. Bebeto Alvarado WBC NONE SEEN Normal NONE SEEN [facility] Comment on above: Performed By: #### A 1C #### [facility] [address] [place] [address] Dr. Bebeto Alvarado VITAMIN B12on 07-25-2022 Cobalamin (Vitamin B12) [Mass/Vol] 1684.0 pg/mL Critically high 193.0-986.0 [facility] Comment on above: Performed By: #### V ITB12, IRON #### [facility] [address] [address] [address] Bebeto Alvarado PROF CHEM 8 (BAS METB)on Anion gap [Moles/Vol] 12.2 mmol/L Normal [facility] Comment on above: Performed By: #### B MP #### [facility] [address] [address] [address] Bebeto Alvarado Calcium [Mass/Vol] 8.9 mg/dL Normal 8.5-10.1 [facility] Comment on above: Performed By: #### B MP #### [facility] [address] [address] [address] Bebeto Alvarado Chloride [Moles/Vol] 105 mmol/L Normal 98-107 [facility] Comment on above: Performed By: #### B MP #### [facility] [address] [place] [address] Dr. Bebeto Alvarado CO2 [Moles/Vol] 29.6 mmol/L Normal 21.0-32.[address] [facility] Comment on above: Performed By: #### B MP #### [facility] [address] [address] [address] Bebeto Alvarado Creatinine [Mass/Vol] 0.95 mg/dL Normal 0.55-1.02 [facility] Comment on above: Performed By: #### B MP #### [facility] [address] [address] [address] Bebeto Alvarado EGFR-AF KYRGYZ >60 Normal >=[address] [facility] Comment on above: Performed By: #### B MP #### [facility] [address] [address] [address] Bebeto Alvarado EGFR-NON AF KYRGYZ 60 mL/min/1.73m2 Normal >=60 [facility] Comment on above: Performed By: #### B MP #### [facility] [address] [address] [address] Bebeto Alvarado Glucose [Mass/Vol] 101 mg/dL Normal 74-106 [facility] Comment on above: Performed By: #### B MP #### [facility] [address] [address] [address] Bebeto Alvarado Potassium [Moles/Vol] 3.8 mmol/L Normal 3.5-5.1 [facility] Comment on above: Performed By: #### B MP #### [facility] [address] [place] [address] Dr. Bebeto Alvarado Sodium [Moles/Vol] 143 mmol/L Normal 136-145 [facility] Comment on above: Performed By: #### B MP #### [facility] [address] [place] [address] Dr. Bebeto Alvarado Urea nitrogen [Mass/Vol] 16.0 mg/dL Normal 7.0-18.0 [facility] Comment on above: Performed By: #### B MP #### [facility] [address] [place] [address] Dr. Bebeto Alvarado Urea nitrogen/Creatinine [Mass ratio] 16.8 mg/mg Normal [facility] Comment on above: Performed By: #### B MP #### [facility] [address] [place] [address] Dr. Bebeto Alvarado CBC AUTO DIFFon 11-21-2021 BASO # 0.1 103/ul Normal 0.0-0.1 [facility] Comment on above: Performed By: #### A 1C #### [facility] [address] [place] [address] Dr. Bebeto Alvarado Basophils/100 WBC (Bld) 1.0 % Normal 0.2-2.0 [facility] Comment on above: Performed By: #### A 1C #### [facility] [address] [place] [address] Dr. Bebeto Alvarado EO # 0.2 103/ul Normal 0.0-0.7 [facility] Comment on above: Performed By: #### A 1C #### [facility] [address] [place] [address] Dr. Bebeto Alvarado Eosinophils/100 WBC (Bld) 3.3 % Normal 0.9-7.0 [facility] Comment on above: Performed By: #### A 1C #### [facility] [address] [place] [address] Dr. Bebeto Alvarado Erythrocyte distribution width (RBC) [Ratio] 13.8 % Normal 11.0-15.0 [facility] Comment on above: Performed By: #### A 1C #### [facility] [address] [place] [address] Dr. Bebeto Alvarado Hematocrit (Bld) [Volume fraction] 38.8 % Normal 36.0-48.0 [facility] Comment on above: Performed By: #### A 1C #### [facility] [address] [place] [address] Dr. Bebeto Alvarado Hemoglobin (Bld) [Mass/Vol] 12.5 g/dL Normal 12.0-16.0 [facility] Comment on above: Performed By: #### A 1C #### [facility] [address] [place] [address] Dr. Bebeto Alvarado IG # 0.02 10e3/ul Normal 0.00-0.03 [facility] Comment on above: Performed By: #### A 1C #### [facility] [address] [place] [address] Dr. Bebeto Alvarado IG % 0.3 % Normal 0.0-0.5 [facility] Comment on above: Performed By: #### A 1C #### [facility] [address] [place] [address] Dr. Bebeto Alvarado LYMPH # 1.9 103/ul Normal 1.2-3.8 [facility] Comment on above: Performed By: #### A 1C #### [facility] [address] [place] [address] Dr. Bebeto Alvarado Lymphocytes/100 WBC (Bld) 29.6 % Normal 20.5-60.0 [facility] Comment on above: Performed By: #### A 1C #### [facility] [address] [place] [address] Dr. Bebeto Alvarado MANUAL DIFF REQ NO Normal [facility] Comment on above: Performed By: #### A 1C #### [facility] [address] [place] [address] Dr. Bebeto Alvarado MCH (RBC) [Entitic mass] 28.0 pg Normal 26.7-34.0 [facility] Comment on above: Performed By: #### A 1C #### [facility] [address] [address] [address] Bebeto Alvarado MCHC (RBC) [Mass/Vol] 32.2 g/dL Normal 29.9-35.2 [facility] Comment on above: Performed By: #### A 1C #### [facility] [address] [address] [address] Bebeto Alvarado MCV (RBC) [Entitic vol] 86.8 fL Normal 81.0-99.0 [facility] Comment on above: Performed By: #### A 1C #### [facility] [address] [place] [address] Dr. Bebeto Alvarado MONO # 0.4 103/ul Normal 0.3-0.8 [facility] Comment on above: Performed By: #### A 1C #### [facility] [address] [place] [address] Dr. Bebeto Alvarado Monocytes/100 WBC (Bld) 5.7 % Normal 1.7-12.0 [facility] Comment on above: Performed By: #### A 1C #### [facility] [address] [place] [address] Dr. Bebeto Alvarado NEUT # 3.8 103/ul Normal 1.4-6.5 [facility] Comment on above: Performed By: #### A 1C #### [facility] [address] [place] [address] Dr. Bebeto Alvarado Neutrophils/100 WBC (Bld) 60.1 % Normal 43.0-75.0 [facility] Comment on above: Performed By: #### A 1C #### [facility] [address] [address] [address] Bebeto Alvarado Platelet mean volume (Bld) [Entitic vol] 11.0 fL Normal 9.5-13.5 [facility] Comment on above: Performed By: #### A 1C #### [facility] [address] [address] [address] Bebeto Alvarado PLT 264 103/ul Normal 150-450 [facility] Comment on above: Performed By: #### A 1C #### [facility] [address] [address] [address] Bebeto Alvarado RBC 4.47 106/ul Normal 4.20-5.40 [facility] Comment on above: Performed By: #### A 1C #### [facility] [address] [address] [address] Bebeto Alvarado WBC 6.3 103/ul Normal 4.0-11.0 [facility] Comment on above: Performed By: #### A 1C #### [facility] [address] [address] [address] Bebeto Alvarado GLYCOHEMOGLOBIN A1Con 2021 ADA RECOMMENDATION SEE BELOW Normal [facility] Comment on above: Result Comment: ADA RECOMMENDED LIMIT 4.0 - 6.0 ADA THERAPEUTIC TARGET < 7.0 ACTION SUGGESTED > 7.0 Performed By: #### A 1C #### [facility] [address] [address] [address] Bebeto Alvarado Glucose [Mass/Vol] 105 mg/dL Normal [facility] Comment on above: Performed By: #### A 1C #### [facility] [address] [place] [address] Dr. Bebeto Alvarado HbA1c (Bld) [Mass fraction] 5.3 % Normal 4.5-6.2 [facility] Comment on above: Performed By: #### A 1C #### [facility] [address] [address] [address] Bebeto Alvarado IRONon 11-21-2021 Iron [Mass/Vol] 59.0 ug/dL Normal 50.0-170.0 [facility] Comment on above: Performed By: #### A 1C #### [facility] [address] [place] [address] Dr. Bebeto Alvarado LIPID PROFILEon 11-21-2021 CHOL-HDL RATIO NORM SEE BELOW Normal [facility] Comment on above: Result Comment: 3.3 - 4.4 LOW RISK 4.4 - 7.1 AVERAGE RISK 7.1 - 11.0 MODERATE RISK >11.0 HIGH RISK Performed By: #### C MP, LIPID #### [facility] [address] [address] [address] Bebeto Alvarado Cholesterol [Mass/Vol] 139 mg/dL Normal <=200 [facility] Comment on above: Performed By: #### C MP, LIPID #### [facility] [address] [address] [address] Bebeto Alvarado Cholesterol in HDL [Mass/Vol] 35 mg/dL Critically low 40-60 [facility] Comment on above: Performed By: #### C MP, LIPID #### [facility] [address] [place] [address] Dr. Bebeto Alvarado Cholesterol in LDL [Mass/Vol] 69.6 mg/dL Normal [facility] Comment on above: Performed By: #### C MP, LIPID #### [facility] [address] [place] [address] Dr. Bebeto Alvarado Cholesterol.total/Chol esterol in HDL [Mass ratio] 4.0 {ratio} Normal [facility] Comment on above: Performed By: #### C MP, LIPID #### [facility] [address] [place] [address] Dr. Bebeto Alvarado HDL NORMAL > or = 60 mg/dl - LO W CARDIOVASCULAR RISK <40 mg/dl - HIGH CARDIOVASCULAR RISK Normal [facility] Comment on above: Performed By: #### C MP, LIPID #### [facility] [address] [place] [address] Dr. Bebeto Alvarado LDL CALC NORMAL SEE BELOW Normal [facility] Comment on above: Result Comment: <100 mg/dl OPTIMAL 100 - 129 mg/dl NEAR OR ABOVE OPTIMAL 130 - 159 mg/dl BORDERLINE HIGH 160 - 189 mg/dl HIGH >190 mg/dl VERY HIGH Performed By: #### C MP, LIPID #### [facility] [address] [place] [address] Dr. Bebeto Alvarado Triglyceride [Mass/Vol] 172 mg/dL Critically high <=150 [facility] Comment on above: Performed By: #### C MP, LIPID #### [facility] [address] [place] [address] Dr. Bebeto Alvarado VLDL CALC 34.4 mg/dL Normal [facility] Comment on above: Performed By: #### C MP, LIPID #### [facility] [address] [place] [address] Dr. Bebeto Alvarado PROF 14(COMP METB)on 022 Albumin [Mass/Vol] 3.8 g/dL Normal 3.4-5.0 [facility] Comment on above: Performed By: #### C MP, LIPID #### [facility] [address] [place] [address] Dr. Bebeto Alvarado Albumin/Globulin [Mass ratio] 1.1 {ratio} Normal [facility] Comment on above: Performed By: #### C MP, LIPID #### [facility] [address] [place] [address] Dr. Bebeto Alvarado ALP [Catalytic activity/Vol] 96 U/L Normal 46-116 [facility] Comment on above: Performed By: #### C MP, LIPID #### [facility] [address] [place] [address] Dr. Bebeto Alvarado ALT [Catalytic activity/Vol] 25 U/L Normal 14-59 [facility] Comment on above: Performed By: #### C MP, LIPID #### [facility] [address] [place] [address] Dr. Bebeto Alvarado Anion gap [Moles/Vol] 11.8 mmol/L Normal [facility] Comment on above: Performed By: #### C MP, LIPID #### [facility] [address] [place] [address] Dr. Bebeto Alvarado AST [Catalytic activity/Vol] 20 U/L Normal 15-37 [facility] Comment on above: Performed By: #### C MP, LIPID #### [facility] [address] [place] [address] Dr. Bebeto Alvarado Bilirubin [Mass/Vol] 0.4 mg/dL Normal 0.2-1.0 [facility] Comment on above: Performed By: #### C MP, LIPID #### [facility] [facility] [address] [address] [address] Bebeto Alvarado Calcium [Mass/Vol] 8.8 mg/dL Normal 8.5-10.1 [facility] Comment on above: Performed By: #### C MP, LIPID #### [facility] [address] [address] [address] Bebeto Alvarado Chloride [Moles/Vol] 106 mmol/L Normal 98-107 [facility] Comment on above: Performed By: #### C MP, LIPID #### [facility] [address] [address] [address] Bebeto Alvarado CO2 [Moles/Vol] 27.0 mmol/L Normal 21.0-32.[address] [facility] Comment on above: Performed By: #### C MP, LIPID #### [facility] [address] [place] [address] Dr. Bebeto Alvarado Creatinine [Mass/Vol] 0.97 mg/dL Normal 0.55-1.02 [facility] Comment on above: Performed By: #### C MP, LIPID #### [facility] [address] [address] [address] Bebeto Alvarado EGFR-AF KYRGYZ >60 Normal >=60 [facility] Comment on above: Performed By: #### C MP, LIPID #### [facility] [address] [place] [address] Dr. Bebeto Alvarado EGFR-NON AF KYRGYZ 59 mL/min/1.73m2 Critically low >=60 [facility] Comment on above: Performed By: #### C MP, LIPID #### [facility] [address] [address] [address] Bebeto Alvarado Globulin (S) [Mass/Vol] 3.4 g/dL Normal [facility] Comment on above: Performed By: #### C MP, LIPID #### [facility] [address] [address] [address] Bebeto Alvarado Glucose [Mass/Vol] 103 mg/dL Normal 74-106 [facility] Comment on above: Performed By: #### C MP, LIPID #### [facility] [address] [address] [address] Bebeto Alvarado Potassium [Moles/Vol] 3.8 mmol/L Normal 3.5-5.1 [facility] Comment on above: Performed By: #### C MP, LIPID #### [facility] [address] [place] [address] Dr. Bebeto Alvarado Protein [Mass/Vol] 7.2 g/dL Normal 6.4-8.2 [facility] Comment on above: Performed By: #### C MP, LIPID #### [facility] [address] [place] [address] Dr. Bebeto Alvarado Sodium [Moles/Vol] 141 mmol/L Normal 136-145 [facility] Comment on above: Performed By: #### C MP, LIPID #### [facility] [address] [place] [address] Dr. Bebeto Alvarado Urea nitrogen [Mass/Vol] 11.0 mg/dL Normal 7.0-18.0 [facility] Comment on above: Performed By: #### C MP, LIPID #### [facility] [address] [place] [address] Dr. Bebeto Alvarado Urea nitrogen/Creatinine [Mass ratio] 11.3 mg/mg Normal [facility] Comment on above: Performed By: #### C MP, LIPID #### [facility] [address] [place] [address] Dr. Bebeto Alvarado URIC ACID SERUMon 11-21-2021 Urate [Mass/Vol] 7.3 mg/dL Critically high 2.6-6.0 [facility] Comment on above: Performed By: #### A 1C #### [facility] [address] [place] [address] Dr. Bebeto Alvarado VITAMIN B12on 11-21-2021 Cobalamin (Vitamin B12) [Mass/Vol] 2123.0 pg/mL Critically high 193.0-986.0 [facility] Comment on above: Performed By: #### A 1C #### [facility] [address] [place] [address] Dr. Bebeto Alvarado Physician Referralon 022 Physician Referral [phone] [id number] Normal [facility] KNEE RIGHT 1 OR 2 VWSon KNEE RIGHT 1 OR 2 VWS [facility] Department of Radiology [address] [place] [address] ======== Patient Name: MICHELLE BE [...] Electronically signed by:Debra Del Cid. Transcribed by: [email or web address], User Resident: Electronically Signed by: DEBRA DEL CID @ 02/08/2019 11:16 AM Normal [facility] Comment on above: Order Comment: , Vie ws (X-RAY, KNEE): Radiologic Protocol , Weight Bearing?: N , With or Without Brace/Cast/Collar: With , Views (X-RAY, KNEE): Radiologic Protocol , Weight Bearing?: N , With or Without Brace/Cast/Collar: With , , , Ordering Provider - AHSAN BINGHAM PA-C , KNEE RIGHT 1 OR 2 [facility] KNEE RIGHT 1 OR 2 [facility] Department of Radiology [address] [place] [id number] ======== Patient Name: MICHELLE BE : [...] complications. Electronically signed by:Tomasz Stoll. Transcribed by: [email or web address], User Resident: Electronically Signed by: TOMASZ STOLL @ 12/07/2018 11:14 AM Normal [facility] Comment on above: Order Comment: , Rossie ws (X-RAY, KNEE): Radiologic Protocol , Weight Bearing?: N , With or Without Brace/Cast/Collar: With , Views (X-RAY, KNEE): Radiologic Protocol , Weight Bearing?: N , With or Without Brace/Cast/Collar: With , , , Ordering Provider - AHSAN BINGHAM PA-C , KNEE RIGHT 1 OR 2 [facility] KNEE RIGHT 1 OR 2 VWS [facility] Department of Radiology [address] [place] [phone] ======== Patient Name: MICHELLE BE : 1960 Sex: F Age: Race: White Pt. 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 Transcribed by: [email or web address], User Resident: Electronically Signed by: ANUP ELLISON @ 10/06/2018 02:48 PM Normal [facility] Comment on above: Order Comment: , Vie ws (X-RAY, KNEE): Radiologic Protocol , Weight Bearing?: N , With or Without Brace/Cast/Collar: With , Views (X-RAY, KNEE): Radiologic Protocol , Weight Bearing?: N , With or Without Brace/Cast/Collar: With , , , Ordering Provider - AHSAN BINGHAM PA-C , KNEE RIGHT 1 OR 2 [facility] 08-05 KNEE RIGHT 1 OR 2 [facility] Department of Radiology [address] [place] [phone] ======== Patient Name: MICHELLE BE : 1960 Sex: F Age: Race: White Pt. Location: Patient Status: Ordered Date: 08/26/2018 2:30:00 PM Completed Date: 08/26/2018 02:54 PM Requesting Provider: AHSAN BINGHAM Attending Provider: Report Copy To: Signs & Symptoms: S82.001A Unsp fracture of right patella, init for clos fx I10 History: [place] Comments: , , , Ordering Provider - AHSAN BINGHAM PA-C , Exam: KNEE RIGHT 1 OR 2 [facility] ======== KNEE RIGHT 1 OR [...] effusion Electronically signed by:Anup Ellison. Transcribed by: [email or web address], User Resident: Electronically Signed by: ANUP ELLISON @ 08/26/2018 04:56 PM Normal [facility] Comment on above: Order Comment: , Rossie ws (X-RAY, KNEE): Radiologic Protocol , Weight Bearing?: N , With or Without Brace/Cast/Collar: With , Views (X-RAY, KNEE): Radiologic Protocol , Weight Bearing?: N , With or Without Brace/Cast/Collar: With , , , Ordering Provider - AHSAN BINGHAM PA-C , KNEE RIGHT 1 OR 2 [facility] 07-06 KNEE RIGHT 1 OR 2 [facility] Department of Radiology [address] [place] [id number] ======== Patient Name: MICHELLE BE : [...] compartment Electronically signed by:Anup Ellison. Transcribed by: [email or web address], User Resident: Electronically Signed by: ANUP ELLISON @ 07/29/2018 03:41 PM Normal [facility] Comment on above: Order Comment: , Vie ws (X-RAY, KNEE): Radiologic Protocol , Weight Bearing?: N , With or Without Brace/Cast/Collar: With , Views (X-RAY, KNEE): Radiologic Protocol , Weight Bearing?: N , With or Without Brace/Cast/Collar: With , , , Ordering Provider - AHSAN BINGHAM PA-C , KNEE RIGHT 3 Son 9 KNEE RIGHT 3 [facility] Department of Radiology [address] [place] [phone] ======== Patient Name: MICHELLE BE : 1960 Sex: F Age: Race: White Pt. Location: Patient Status: Ordered Date: 07/15/2018 8:45:00 AM Completed Date: 07/15/2018 08:47 AM Requesting Provider: AHSAN BINGHAM Attending Provider: Report Copy To: Signs & Symptoms: S82.001A Unsp fracture of right patella, init for clos fx I10 History: [place] Comments: , , , Ordering Provider - AHSAN BINGHAM PA-C , Exam: KNEE RIGHT 3 [facility] ======== KNEE RIGHT 3 VWS [...] knee Electronically signed by:Anup Ellison. Transcribed by: [email or web address], User Resident: Electronically Signed by: ANUP ELLISON @ 07/15/2018 03:31 PM Normal [facility] Comment on above: Order Comment: , Vie ws (X-RAY, KNEE): Radiologic Protocol , Weight Bearing?: N , With or Without Brace/Cast/Collar: With , Views (X-RAY, KNEE): Radiologic Protocol , Weight Bearing?: N , With or Without Brace/Cast/Collar: With , , , Ordering Provider - AHSAN BINGHAM PA-C , Operative Reporton 9 Operative Report MR#: [id number] [facility] Pt. Name: Michelle Be Room #: [...] Duarte MD Date Trans: 07/03/2018 04:28 Monse/terry [id number] Normal [facility] *ANAEROBIC CULTUREon 019 *ANAEROBIC CULTURE Clinical Report: (D) Specimen/Source: SWAB/RT KNEE Collected: 07/02/2018 13:53 Status: Final Last Updated: 07/07/2018 08:02 CULT RES (Final) No Anaerobes Isolated 5 Days Normal [facility] Comment on above: Performed By: #### 3 0312 #### [address] *WOUND CULTUREon 07-02-2018 *WOUND CULTURE Clinical Report: (D) Specimen/Source: WOUND/INTRAOP SPEC Collected: 07/02/2018 13:53 Status: Final Last Updated: 07/07/2018 10:13 (1) #1 RT KNEE GRAM (Final) Rare Polys No Bacteria Seen CULT RES (Final) No Growth Day 5 Normal [facility] Comment on above: Order Comment: #1 RT KNEE Performed By: #### 3 0343 #### [address] KNEE RIGHT 1 OR 2 [facility] 06-05 KNEE RIGHT 1 OR 2 [facility] Department of Radiology [address] [place] [address] ======== Patient Name: MICHELLE BE [...] Electronically signed by:Debra Del Cid. Transcribed by: [email or web address], User Resident: Electronically Signed by: DEBRA DEL CID @ 07/02/2018 02:03 PM Normal [facility] Comment on above: Order Comment: ORIF VS PERCUTANEOUS FIXATION RIGHT PATELLA POC GLUCOSE LABon 07-02-2018 Glucose [Mass/Vol] 108 mg/dL High 70-100 [facility] Comment on above: Performed By: #### 8 5499 #### [facility] [address] [place] [address], [facility] APTTon 06-30-2018 aPTT Coag (Bld) [Time] 30.6 s Normal 25.0-35.0 [facility] Comment on above: Result Comment: ALL [...] THIS PURPOSE. Performed By: #### 5 6101, 19354 #### [facility] [address] [place] [address], [facility] BASIC METABOLIC PANELon 03-2 Calcium [Mass/Vol] 9.7 mg/dL Normal 8.6-10.3 [facility] Comment on above: Performed By: #### 0 0071 #### [facility] [address] [place] [address], [facility] Chloride [Moles/Vol] 102 mmol/L Normal 98-107 [facility] Comment on above: Performed By: #### 0 0071 #### [facility] [address] [place] [address], [facility] CO2 [Moles/Vol] 28 mmol/L Normal 21-31 [facility] Comment on above: Performed By: #### 0 0071 #### [facility] [address] [place] [address], [facility] Creatinine [Mass/Vol] 1.20 mg/dL Normal 0.60-1.20 [facility] Comment on above: Performed By: #### 0 0071 #### [facility] [address] [place] [address], [facility] GFR/1.73 sq M predicted among blacks MDRD (S/P/Bld) [Vol rate/Area] 56 ml/min/1.73sq m Abnormal >60 [facility] Comment on above: Performed By: #### 0 0071 #### [facility] [address] [place] [address], [facility] GFR/1.73 sq M predicted among non-blacks MDRD (S/P/Bld) [Vol rate/Area] 47 ml/min/1.73sq m Abnormal >60 [facility] Comment on above: Performed By: #### 0 0071 #### [facility] [address] [place] [address], [facility] Glucose [Mass/Vol] 97 mg/dL Normal 70-100 [facility] Comment on above: Performed By: #### 0 0071 #### [facility] [address] [place] [address], [facility] Potassium [Moles/Vol] 4.1 mmol/L Normal 3.5-5.1 [facility] Comment on above: Performed By: #### 0 0071 #### [facility] [address] Sodium [Moles/Vol] 137 mmol/L Normal 136-145 [facility] Comment on above: Performed By: #### 0 0071 #### [facility] [address] [place] [address], [facility] Urea nitrogen [Mass/Vol] 19 mg/dL Normal 7-25 [facility] Comment on above: Performed By: #### 0 0071 #### [facility] [address] [place] [address], [facility] CBC W/DIFFon 06-30-2018 ABS BASOPHILS 0.1 10*3/uL Normal 0.0-0.2 [facility] Comment on above: Performed By: #### 5 0103 #### [facility] [address] [place] [address], [facility] ABS IMM GRANS 0.0 10*3/uL Normal 0.0-0.2 [facility] Comment on above: Performed By: #### 5 0103 #### [facility] [address] [place] [address], [facility] ABS NEUTROPHILS 6.4 10*3/uL Normal 1.6-7.6 [facility] Comment on above: Performed By: #### 5 0103 #### [facility] [address] [facility] [address], [facility] Basophils/100 WBC (Bld) 0.7 % Normal 0.0-1.0 [facility] Comment on above: Performed By: #### 5 0103 #### [facility] [address] [facility] [place] [address], [facility] Eosinophils (Bld) [#/Vol] 0.2 10*3/uL Normal 0.0-0.5 [facility] Comment on above: Performed By: #### 5 0103 #### [facility] [address] [facility] [place] [address], [facility] Eosinophils/100 WBC (Bld) 1.5 % Normal 0.0-6.0 [facility] Comment on above: Performed By: #### 5 0103 #### [facility] [address] [facility]. [address] Erythrocyte distribution width (RBC) [Ratio] 14.4 % Normal 11.5-15.0 [facility] Comment on above: Performed By: #### 5 0103 #### [facility] [address] [facility] [place] [address], [facility] Hematocrit (Bld) [Volume fraction] 40.6 % Normal 36.0-45.0 [facility] Comment on above: Performed By: #### 5 0103 #### [facility] [address] [facility] [place] [address], [facility] Hemoglobin (Bld) [Mass/Vol] 13.3 g/dL Normal 12.0-15.0 [facility] Comment on above: Performed By: #### 5 0103 #### [facility] [address] [facility] IMMATURE GRANS 0.4 % Normal 0.0-1.0 [facility] Comment on above: Performed By: #### 5 0103 #### [facility] [address] [facility]. [address] Lymphocytes (Bld) [#/Vol] 2.6 10*3/uL Normal 1.2-4.0 [facility] Comment on above: Performed By: #### 5 0103 #### [facility] [address] Lymphocytes/100 WBC (Bld) 26.5 % Normal 20.0-45.0 [facility] Comment on above: Performed By: #### 5 0103 #### [facility] [address] [facility]. [address] MCH (RBC) [Entitic mass] 27.4 pg Normal 27.0-33.0 [facility] Comment on above: Performed By: #### 5 0103 #### [facility] [address] MCHC (RBC) [Mass/Vol] 32.8 g/dL Normal 32.0-35.0 [facility] Comment on above: Performed By: #### 5 3 #### [facility] [address] MCV (RBC) [Entitic vol] 83.5 fL Normal 82.0-98.0 [facility] Comment on above: Performed By: #### 5 3 #### [facility] [address] [facility] [place] [address], [facility] Monocytes (Bld) [#/Vol] 0.5 10*3/uL Normal 0.1-1.0 [facility] Comment on above: Performed By: #### 5 3 #### [facility] [address] [place] [address], [facility] MONOS 5.0 % Normal 5.0-12.0 [facility] Comment on above: Performed By: #### 5 0103 #### [facility] [address] [place] [address], [facility] Neutrophils/100 WBC (Bld) 65.9 % Normal 40.0-72.0 [facility] Comment on above: Performed By: #### 5 0103 #### [facility] [address] [place] [address], [facility] Nucleated RBC/100 WBC (Bld) [Ratio] 0 % Normal 0-0 [facility] Comment on above: Performed By: #### 5 0103 #### [facility] [address] [place] [address], [facility] PLAT CNT 290 10*3/uL Normal 150-400 [facility] Comment on above: Performed By: #### 5 0103 #### [facility] [address] [place] [address], [facility] RBC (Bld) [#/Vol] 4.86 10*6/uL Normal 3.80-5.00 [facility] Comment on above: Performed By: #### 5 0103 #### [address] [address], [facility] WBC (Bld) [#/Vol] 9.68 10*3/uL Normal 4.00-10.60 [facility] Comment on above: Performed By: #### 5 102 #### [facility] [address] [place] [address], [facility] KNEE RIGHT 1 OR 2 VWSon 06-05 KNEE RIGHT 1 OR 2 VWS [facility] Department of Radiology [address] [place] [address] ======== Patient Name: MICHELLE BE : 1960 Sex: F Age: Race: White Pt. 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 Transcribed by: [email or web address], User Resident: Electronically Signed by: DEBRA DEL CID @ 06/30/2018 11:52 AM Normal [facility] Comment on above: Order Comment: , Mabel ws (X-RAY, KNEE): Radiologic Protocol , Weight Bearing?: N , With or Without Brace/Cast/Collar: With , Views (X-RAY, KNEE): Radiologic Protocol , Weight Bearing?: N , With or Without Brace/Cast/Collar: With , , , Ordering Provider - AHSAN BINGHAM PA-C , PROTHROMBIN TIMEon 9 INR Coag (PPP) [Relative time] 0.98 {INR} Normal 0.91-1.16 [facility] Comment on above: Result Comment: [...] CHEST 1995;108:231S-246S. Performed By: #### 5 6101, 60047 #### [facility] [address] [facility] [place] [address], [facility] PT Coag (PPP) [Time] 13.0 s Normal 12.3-14.8 [facility] Comment on above: Result Comment: ALL RESULTS MUST BE INTERPRETED WITH RESPECT TO BLOOD DRAWING ARTIFACT OR DILUTION ERROR OF ANTICOAGULANT AT THE TIME OF SAMPLING. Performed By: #### 5 6101, [address] #### [address] KNEE RIGHT 3 VWSon 9 KNEE RIGHT 3 VWS [facility] Department of Radiology [address] [place] [phone] ======== Patient Name: MICHELLE BE : 1960 Sex: F Age: Race: White Pt. Location: Patient Status: O Ordered Date: 06/15/2018 1:35:00 PM Completed Date: 06/15/2018 01:34 PM Requesting Provider: AMPARO ZHANG Attending Provider: AMPARO ZHANG Report Copy To: ADELAIDA CARRION Signs & Symptoms: M17.11 Unilateral primary osteoarthritis, right knee I10 History: [place] Comments: , Weight Bearing?: Y , Weight [...] effusion Electronically signed by:Anup Ellison. Transcribed by: [email or web address], User Resident: Electronically Signed by: ANUP ELLISON @ 06/15/2018 03:50 PM Normal [facility] Comment on above: Order Comment: , Isaiah ght Bearing?: Y , Weight Bearing?: Y , , , Ordering Mariela ZHANG PA-C , Vital Signs Date Time Vital Sign Value Performing Clinician Facility 12-26-2024 09:40-0400 Body height 162.6 cm [facility] Work Phone: [facility] 12-26-2024 09:40-0400 Body mass index (BMI) [Ratio] 47.55 kg/m2 [facility] Work Phone: [facility] 12-26-2024 09:40-0400 Body weight 125.65 kg [facility] Work Phone: [facility] 11-18-2024 09:52-0400 Body height 162.6 cm Harrison Hoyos DO Work Phone: [facility] 11-18-2024 09:52-0400 Body mass index (BMI) [Ratio] 47.55 kg/m2 Harrison Pocos DO Work Phone: [facility] 11-18-2024 09:52-0400 Body weight 125.65 kg Harrison Pocos DO Work Phone: [facility] 11-14-2024 10:16-0400 Body mass index (BMI) [Ratio] 47.62 kg/m2 Adelaida Yinghholz INTERN Work Phone: [facility] 11-14-2024 10:16-0400 Body temperature 97.81 [degF] Adelaida Yinghholz INTERN Work Phone: [facility] 11-14-2024 10:16-0400 Body weight 125.83 kg Adelaida Aichholz INTERN Work Phone: [facility] 11-14-2024 10:16-0400 Diastolic blood pressure 84 mm[Hg] Adelaida Yinghholz INTERN Work Phone: [facility] 11-14-2024 10:16-0400 Heart rate 70 /min Adelaida Aichholz INTERN Work Phone: [facility] 11-14-2024 10:16-0400 Respiratory rate 20 /min Adelaida Aichholz INTERN Work Phone: [facility] 11-14-2024 10:16-0400 SaO2% (BldA) [Mass fraction] 98 % Adelaida Yinghholz INTERN Work Phone: [facility] 11-14-2024 10:16-0400 Systolic blood pressure 124 mm[Hg] Adelaida Aichholz INTERN Work Phone: [facility] 10-27-2024 10:05-0400 Body height 162.6 cm Harrison Pocos DO Work Phone: [facility] 10-27-2024 10:05-0400 Body mass index (BMI) [Ratio] 47.55 kg/m2 Harrison Pocos DO Work Phone: [facility] 10-27-2024 10:05-0400 Body weight 125.65 kg Harrison Pocos DO Work Phone: [facility] 10-13-2024 08:42-0400 Body mass index (BMI) [Ratio] 48.75 kg/m2 Adelaida Iglesiasz INTERN Work Phone: [facility] 10-13-2024 08:42-0400 Body temperature 98.49 [degF] Adelaida Merryholz INTERN Work Phone: [facility] 10-13-2024 08:42-0400 Body weight 128.82 kg Adelaida Merryholz INTERN Work Phone: [facility] 10-13-2024 08:42-0400 Diastolic blood pressure 80 mm[Hg] Adelaida Merryholz INTERN Work Phone: [facility] 10-13-2024 08:42-0400 Heart rate 85 /min Adelaida Merryholz INTERN Work Phone: [facility] 10-13-2024 08:42-0400 Respiratory rate 20 /min Adelaida Kelsiez INTERN Work Phone: [facility] 10-13-2024 08:42-0400 SaO2% (BldA) [Mass fraction] 95 % Adelaida Merryholz INTERN Work Phone: [facility] 10-13-2024 08:42-0400 Systolic blood pressure 132 mm[Hg] Adelaida Merryholz INTERN Work Phone: [facility] 08-16-2024 11:25-0400 Body mass index (BMI) [Ratio] 48.23 kg/m2 Adelaida Merryholz INTERN Work Phone: [facility] 08-16-2024 11:25-0400 Body temperature 98.49 [degF] Adelaida Merryholz INTERN Work Phone: [facility] 08-16-2024 11:25-0400 Body weight 127.46 kg Adelaida Merryholz INTERN Work Phone: [facility] 08-16-2024 11:25-0400 Diastolic blood pressure 82 mm[Hg] Adelaida Aichholz INTERN Work Phone: [facility] 08-16-2024 11:25-0400 Heart rate 67 /min Adelaida Aichholz INTERN Work Phone: [facility] [facility] 08-16-2024 11:25-0400 Respiratory rate 18 /min Adelaida Aichholz INTERN Work Phone: [facility] 08-16-2024 11:25-0400 SaO2% (BldA) [Mass fraction] 97 % Adelaida Aichholz INTERN Work Phone: [facility] 08-16-2024 11:25-0400 Systolic blood pressure 120 mm[Hg] Adelaida Aichholz INTERN Work Phone: [facility] 07-27-2024 11:16-0400 Body mass index (BMI) [Ratio] 50.67 kg/m2 Adelaida Aichholz INTERN Work Phone: [facility] 07-27-2024 11:16-0400 Body temperature 98.8 [degF] Adelaida Aichholz INTERN Work Phone: [facility] 07-27-2024 11:16-0400 Body weight 133.9 kg Adelaida Aichholz INTERN Work Phone: [facility] 07-27-2024 11:16-0400 Diastolic blood pressure 86 mm[Hg] Adelaida Aichholz INTERN Work Phone: [facility] 07-27-2024 11:16-0400 Heart rate 82 /min Adelaida Aichholz INTERN Work Phone: [facility] 07-27-2024 11:16-0400 Respiratory rate 24 /min Adelaida Aichholz INTERN Work Phone: [facility] 07-27-2024 11:16-0400 SaO2% (BldA) [Mass fraction] 97 % Adelaida Aichholz INTERN Work Phone: [facility] 07-27-2024 11:16-0400 Systolic blood pressure 124 mm[Hg] Adelaida Carrion INTERN Work Phone: [facility] 07-26-2024 10:48-0400 Body height 162.6 cm Juany Lowe PA Work Phone: [facility] 07-26-2024 10:48-0400 Body mass index (BMI) [Ratio] 50.98 kg/m2 Juany Lowe PA Work Phone: [facility] 07-26-2024 10:48-0400 Body weight 134.72 kg Juany Lowe PA Work Phone: [facility] 07-26-2024 10:48-0400 Diastolic blood pressure 84 mm[Hg] Juany Lowe PA Work Phone: [facility] 07-26-2024 10:48-0400 Systolic blood pressure 126 mm[Hg] Juany Lowe PA Work Phone: [facility] 05-24-2024 08:19-0500 Body height 162.6 cm Juany Lowe PA Work Phone: [facility] 05-24-2024 08:19-0500 Body mass index (BMI) [Ratio] 50.29 kg/m2 Juany Lowe PA Work Phone: [facility] 05-24-2024 08:19-0500 Body weight 132.9 kg Juany Lowe PA Work Phone: [facility] 05-24-2024 08:19-0500 Diastolic blood pressure 72 mm[Hg] Juany Lowe PA Work Phone: [facility] 05-24-2024 08:19-0500 Heart rate 62 /min Juany Lowe PA Work Phone: [facility] 05-24-2024 08:19-0500 Respiratory rate 16 /min Juany Lowe PA Work Phone: [facility] 05-24-2024 08:19-0500 SaO2% (BldA) [Mass fraction] 100 % Juany Lowe PA Work Phone: [facility] 05-24-2024 08:19-0500 Systolic blood pressure 110 mm[Hg] Juany Kirbygeorgette PA Work Phone: [facility] 05-12-2024 10:04-0500 Body height 162.6 cm Adelaida Kelsiez INTERN Work Phone: [facility] 05-12-2024 10:04-0500 Body mass index (BMI) [Ratio] 49.16 kg/m2 Adelaida Aichholz INTERN Work Phone: [facility] 05-12-2024 10:04-0500 Body temperature 98.49 [degF] Adelaida Aichholz INTERN Work Phone: [facility] 05-12-2024 10:04-0500 Body weight 129.91 kg Adelaida Yinghholz INTERN Work Phone: [facility] 05-12-2024 10:04-0500 Diastolic blood pressure 78 mm[Hg] Adelaida Aichholz INTERN Work Phone: [facility] 05-12-2024 10:04-0500 Heart rate 80 /min Adelaida Aichholz INTERN Work Phone: [facility] 05-12-2024 10:04-0500 Respiratory rate 20 /min Adelaida Aichholz INTERN Work Phone: [facility] 05-12-2024 10:04-0500 SaO2% (BldA) [Mass fraction] 98 % Adelaida Yinghholz INTERN Work Phone: [facility] 05-12-2024 10:04-0500 Systolic blood pressure 118 mm[Hg] Adelaida Aichholz INTERN Work Phone: [facility] 03-16-2024 09:53-0500 Body height 162.6 cm Adelaida Aichholz INTERN Work Phone: [facility] 03-16-2024 09:53-0500 Body mass index (BMI) [Ratio] 48.41 kg/m2 Adelaida Aichholz INTERN Work Phone: [facility] 03-16-2024 09:53-0500 Body temperature 98.01 [degF] Adelaida Carrion INTERN Work Phone: [facility] 03-16-2024 09:53-0500 Body weight 127.91 kg Adelaida Carrion INTERN Work Phone: [facility] 03-16-2024 09:53-0500 Diastolic blood pressure 80 mm[Hg] Adelaida Carrion INTERN Work Phone: [facility] 03-16-2024 09:53-0500 Heart rate 79 /min Adelaida Carrion INTERN Work Phone: [facility] 03-16-2024 09:53-0500 Respiratory rate 18 /min Adelaida Carrion INTERN Work Phone: [facility] 03-16-2024 09:53-0500 SaO2% (BldA) [Mass fraction] 98 % Adelaida Carrion INTERN Work Phone: [facility] 03-16-2024 09:53-0500 Systolic blood pressure 120 mm[Hg] Adelaida Carrion INTERN Work Phone: [facility] 03-10-2024 15:20-0500 Body height 162.6 cm Rachel Mitchell PA Work Phone: [facility] 03-10-2024 15:20-0500 Body mass index (BMI) [Ratio] 48.41 kg/m2 Rachel Mitchell PA Work Phone: [facility] 03-10-2024 15:20-0500 Body weight 127.91 kg Rachel Mitchell PA Work Phone: [facility] 03-10-2024 15:20-0500 Diastolic blood pressure 68 mm[Hg] Rachel Mitchell PA Work Phone: [facility] 03-10-2024 15:20-0500 Heart rate 74 /min Rachel Mitchell PA Work Phone: [facility] 03-10-2024 15:20-0500 Respiratory rate 16 /min Rachel Mitchell PA Work Phone: [facility] 03-10-2024 15:20-0500 SaO2% (BldA) [Mass fraction] 98 % Rachel Mitchell PA Work Phone: [facility] 03-10-2024 15:20-0500 Systolic blood pressure 102 mm[Hg] Rachle Mitchell PA Work Phone: [facility] 03-01-2024 12:48-0500 Body height 162.6 cm Juany Lowe PA Work Phone: [facility] 03-01-2024 12:48-0500 Body mass index (BMI) [Ratio] 48.92 kg/m2 Juany Lowe PA Work Phone: [facility] 03-01-2024 12:48-0500 Body weight 129.28 kg Juany Lowe PA Work Phone: [facility] 03-01-2024 12:48-0500 Diastolic blood pressure 88 mm[Hg] Juany Lowe PA Work Phone: [facility] 03-01-2024 12:48-0500 Systolic blood pressure 140 mm[Hg] Juany Lowe PA Work Phone: [facility] 02-16-2024 11:18-0500 Body height 162.6 cm Adelaida Carrion INTERN Work Phone: [facility] 02-16-2024 11:18-0500 Body mass index (BMI) [Ratio] 50.77 kg/m2 Adelaida Kelsiez INTERN Work Phone: [facility] 02-16-2024 11:18-0500 Body temperature 98.49 [degF] Adelaida Carrion INTERN Work Phone: [facility] 02-16-2024 11:18-0500 Body weight 134.17 kg Adelaida Sheyla INTERN Work Phone: [facility] 02-16-2024 11:18-0500 Diastolic blood pressure 82 mm[Hg] Adelaida Yinghholz INTERN Work Phone: [facility] 02-16-2024 11:18-0500 Heart rate 69 /min Adelaida Aichholz INTERN Work Phone: [facility] 02-16-2024 11:18-0500 Respiratory rate 20 /min Adelaida Aichholz INTERN Work Phone: [facility] 02-16-2024 11:18-0500 SaO2% (BldA) [Mass fraction] 98 % Adelaida Yinghholz INTERN Work Phone: [facility] 02-16-2024 11:18-0500 Systolic blood pressure 122 mm[Hg] Adelaida Aichholz INTERN Work Phone: [facility] 01-28-2024 13:46-0400 Body height 162.6 cm Adelaida Yinghholz INTERN Work Phone: [facility] 01-28-2024 13:46-0400 Body mass index (BMI) [Ratio] 48.99 kg/m2 Adelaida Yinghholz INTERN Work Phone: [facility] 01-28-2024 13:46-0400 Body temperature 98.71 [degF] Adelaida Yinghholz INTERN Work Phone: [facility] 01-28-2024 13:46-0400 Body weight 129.46 kg Adelaida Yinghholz INTERN Work Phone: [facility] 01-28-2024 13:46-0400 Diastolic blood pressure 78 mm[Hg] Adelaida Aichholz INTERN Work Phone: [facility] 01-28-2024 13:46-0400 Heart rate 81 /min Adelaida Aichholz INTERN Work Phone: [facility] 01-28-2024 13:46-0400 Respiratory rate 18 /min Adelaida Aichholz INTERN Work Phone: [facility] 01-28-2024 13:46-0400 SaO2% (BldA) [Mass fraction] 99 % Adelaidamonse Sousaholz INTERN Work Phone: [facility] 01-28-2024 13:46-0400 Systolic blood pressure 110 mm[Hg] Adelaida Yinghholz INTERN Work Phone: [facility] 01-04-2024 09:39-0400 Body height 162.6 cm Adelaida Yinghholz INTERN Work Phone: [facility] 01-04-2024 09:39-0400 Body mass index (BMI) [Ratio] 48.75 kg/m2 Adelaida Yinghholz INTERN Work Phone: [facility] 01-04-2024 09:39-0400 Body temperature 97.81 [degF] Adelaida Merryholz INTERN Work Phone: [facility] 01-04-2024 09:39-0400 Body weight 128.82 kg Adelaida Yinghholz INTERN Work Phone: [facility] 01-04-2024 09:39-0400 Diastolic blood pressure 78 mm[Hg] Adelaida Yinghholz INTERN Work Phone: [facility] 01-04-2024 09:39-0400 Heart rate 67 /min Adelaida Yinghholz INTERN Work Phone: [facility] 01-04-2024 09:39-0400 Respiratory rate 19 /min Adelaida Yinghholz INTERN Work Phone: [facility] 01-04-2024 09:39-0400 SaO2% (BldA) [Mass fraction] 99 % Adelaida Yinghholz INTERN Work Phone: [facility] 01-04-2024 09:39-0400 Systolic blood pressure 116 mm[Hg] Adelaida Aichholz INTERN Work Phone: [facility] 12-09-2023 10:14-0400 Body height 162.6 cm Juany Caballero INTERN Work Phone: [facility] 12-09-2023 10:14-0400 Body mass index (BMI) [Ratio] 48.92 kg/m2 Juany Singhmor INTERN Work Phone: [facility] 12-09-2023 10:14-0400 Body weight 129.28 kg Juany Singhmor INTERN Work Phone: [facility] 12-09-2023 10:14-0400 Diastolic blood pressure 78 mm[Hg] Juany Singhmor INTERN Work Phone: [facility] 12-09-2023 10:14-0400 SaO2% (BldA) [Mass fraction] 97 % Juany Singhmor INTERN Work Phone: [facility] 12-09-2023 10:14-0400 Systolic blood pressure 122 mm[Hg] Juany Singhmor INTERN Work Phone: [facility] 12-08-2023 15:24-0400 Body height 162.6 cm Angle Clevelandnagel INTERN Work Phone: [facility] 12-08-2023 15:24-0400 Body mass index (BMI) [Ratio] 48.92 kg/m2 Angle Windnagel INTERN Work Phone: [facility] 12-08-2023 15:24-0400 Body weight 129.28 kg Angle Clevelandnagel INTERN Work Phone: [facility] 12-08-2023 15:24-0400 Diastolic blood pressure 77 mm[Hg] Angle Windnagel INTERN Work Phone: [facility] 12-08-2023 15:24-0400 Heart rate 72 /min Angle Windnagel INTERN Work Phone: [facility] 12-08-2023 15:24-0400 Systolic blood pressure 134 mm[Hg] Angle Windnagel INTERN Work Phone: [facility] 05-18-2023 16:30-0500 Body height 162.6 cm Adelaida Carrion INTERN Work Phone: [facility] 05-18-2023 16:30-0500 Body mass index (BMI) [Ratio] 47.89 kg/m2 Adelaida Aichholz INTERN Work Phone: [facility] 05-18-2023 16:30-0500 Body temperature 97.3 [degF] Adelaida Aichholz INTERN Work Phone: [facility] 05-18-2023 16:30-0500 Body weight 126.55 kg Adelaida Aichholz INTERN Work Phone: [facility] 05-18-2023 16:30-0500 Diastolic blood pressure 80 mm[Hg] Adelaida Aichholz INTERN Work Phone: [facility] 05-18-2023 16:30-0500 Heart rate 76 /min Adelaida Aichholz INTERN Work Phone: [facility] 05-18-2023 16:30-0500 Respiratory rate 19 /min Adelaida Aichholz INTERN Work Phone: [facility] 05-18-2023 16:30-0500 SaO2% (BldA) [Mass fraction] 97 % Adelaida Aichholz INTERN Work Phone: [facility] 05-18-2023 16:30-0500 Systolic blood pressure 134 mm[Hg] Adelaida Aichholz INTERN Work Phone: [facility] 03-23-2023 12:10-0500 Diastolic blood pressure 98 mm[Hg] Adelaida Aichholz Work Phone: [facility] 03-23-2023 12:10-0500 Heart rate 76 /min Adelaida Aichholz Work Phone: [facility] 03-23-2023 12:10-0500 Respiratory rate 18 /min Adelaida Aichholz Work Phone: [facility] 03-23-2023 12:10-0500 SaO2% (BldA) [Mass fraction] 99 % Adelaida Aichholz Work Phone: [facility] 03-23-2023 12:10-0500 Systolic blood pressure 162 mm[Hg] Adelaida Aichholz Work Phone: [facility] 03-23-2023 10:53-0500 Body height 162.56 cm Adelaida Aichholz Work Phone: [facility] 03-23-2023 10:53-0500 Body weight 125.64 kg Adelaida Aichholz Work Phone: [facility] 12-19-2022 14:55-0400 Body height 162.56 cm Rosemary Kirkland Other [employer] [facility] [employer] Other 12-19-2022 14:55-0400 Body mass index (BMI) [Ratio] 47.85 kg/m2 Rosemary Kirkland Other [employer] Other 12-19-2022 14:55-0400 Body temperature 97.8 [degF] Rosemary Kirkland Other [employer] Other 12-19-2022 14:55-0400 Body weight 126.46 kg Rosemary Kirkland Other [employer] Other 12-19-2022 14:55-0400 Respiratory rate 20 /min Rosemary Vernonmond Other [employer] Other 12-19-2022 14:55-0400 SaO2% (BldA) [Mass fraction] 95 % Rosemary Kirkland Other [employer] Other 11-20-2022 13:12-0400 Body temperature 97.7 [degF] Adelaida Aichholz Work Phone: [facility] 11-20-2022 13:12-0400 SaO2% (BldA) [Mass fraction] 96 % Adelaida Aichholz Work Phone: [facility] 11-20-2022 07:44-0400 Diastolic blood pressure 90 mm[Hg] Adelaida Aichholz Work Phone: [facility] 11-20-2022 07:44-0400 Heart rate 103 /min Adelaida Aichholz Work Phone: [facility] 11-20-2022 07:44-0400 Systolic blood pressure 152 mm[Hg] Adelaida Aichholz Work Phone: [facility] 11-19-2022 20:00-0400 Respiratory rate 18 /min Adelaida Aichholz Work Phone: [facility] 11-18-2022 15:18-0400 Body height 162.56 cm Adelaida Aichholz Work Phone: [facility] 11-17-2022 09:00-0400 Body weight 122.92 kg Adelaida Merryholz Work Phone: [facility] Encounters Encounter Date Encounter Type Care Provider Facility Start: 01-09-2025 End: 01-09-2025 ambulatory Syeda Mancuso MD Facility[facility] Start: 12-26-2024 End: 12-26-2024 Bamboo flowsheet Scott Stone PA Work Phone: [facility] Start: 12-26-2024 End: 12-26-2024 Bamboo flowsheet Scott Stone PA Work Phone: [facility] Start: 12-26-2024 End: 12-26-2024 Patient encounter procedure Scott REDDY Work Phone: [facility] Comment on above: Status post arthrosc opic surgery of right knee (Primary Dx) Start: 12-26-2024 End: 12-26-2024 ambulatory SCOTT STONE Not Available Start: 12-16-2024 ambulatory Eduardo Monk Facility:[facility] Start: 12-14-2024 End: 12-14-2024 Orders Only Michel Pocos DO Work Phone: [facility] Comment on above: Primary osteoarthrit is of right knee (Primary Dx) Start: 11-23-2024 End: 11-23-2024 Clinisync Result Encounter Adelaida Carrion INTERN Work Phone: [facility] External Department Unsolicited Start: 11-23-2024 End: 11-23-2024 Clinisync Result Encounter Adelaida Carrion INTERN Work Phone: [facility] External Department Unsolicited Start: 11-18-2024 End: 11-18-2024 Bamboo flowsheet Michel Pocos DO Work Phone: [facility] Start: 11-18-2024 End: 11-18-2024 Bamboo flowsheet Michel Pocos DO Work Phone: [facility] Start: 11-18-2024 End: 11-18-2024 Patient encounter procedure Michel Pocos DO Work Phone: [facility] Comment on above: Acute medial meniscu s tear of right knee, initial encounter (Primary Dx); Chronic pain of right knee; Morbid obesity (CMS-HCC); Primary osteoarthritis of right knee; Preoperative testing Start: 11-18-2024 End: 11-18-2024 Patient encounter status Michel Pocos DO Work Phone: [facility] Start: 11-18-2024 End: 11-18-2024 ambulatory HARRISON Shea POCOS Not Available Start: 11-17-2024 End: 11-17-2024 ambulatory HARRISON Shea POCOS Not Available Start: 11-14-2024 End: 11-14-2024 Bamboo flowsheet Adelaida Carrion INTERN Work Phone: [facility] Start: 11-14-2024 End: 11-17-2024 Bamboo flowsheet Adelaida Carrion INTERN Work Phone: [facility] Start: 11-14-2024 End: 11-17-2024 Clinisync Result Encounter Adelaida Sheyla INTERN Work Phone: [facility] External Department Unsolicited Start: 11-14-2024 End: 11-14-2024 Office outpatient visit 25 minutes Adelaida Carrion INTERN Work Phone: [facility] Comment on above: Well woman exam with routine gynecological exam (Primary Dx); [place]bid [place]severe) [place] due to excess calories [place] Primary hypertension ; Anemia, unspecified type; Bilateral lower extremity edema; Osteoporosis, unspecified osteoporosis type, unspecified pathological fracture presence ; Chronic kidney disease, stage 3a [place] [place] Pre-diabetes Start: 11-14-2024 End: 11-14-2024 Patient encounter procedure Adelaida Sheyla INTERN Work Phone: [facility] Start: 11-14-2024 End: 11-14-2024 ambulatory ADELAIDA CARRION Not Available Start: 10-27-2024 End: 10-27-2024 Patient encounter procedure Michel Pocos DO Work Phone: [facility] Comment on above: Right knee pain, uns pecified chronicity (Primary Dx); Primary osteoarthritis of right knee; Morbid [place] [place] Start: 10-27-2024 End: 10-27-2024 ambulatory MICHEL POCOS Not Available Start: 10-27-2024 End: 10-27-2024 ambulatory MICHEL POCOS Not Available Start: 10-13-2024 End: 10-13-2024 Bamboo flowsheet Adelaida Carrion INTERN Work Phone: [facility] Start: 10-13-2024 End: 10-13-2024 Bamboo flowsheet Adelaida Carrion INTERN Work Phone: [facility] Start: 10-13-2024 End: 10-13-2024 Office outpatient visit 25 minutes Adelaida Carrion INTERN Work Phone: [facility] Comment on above: Disorientation (Prim zuleika Dx); Essential (primary) hypertension ; Allergic rhinitis, unspecified seasonality, unspecified trigger; Allergic rhinitis, unspecified; Gastro-esophageal reflux disease without esophagitis; Bilateral lower extremity edema; OSMANY (obstructive sleep apnea); Primary hypertension ; Osteoporosis, unspecified osteoporosis type, unspecified pathological fracture presence Start: 10-13-2024 End: 10-13-2024 ambulatory ADELAIDA CARRION Not Available Start: 10-10-2024 End: 10-10-2024 ambulatory Syeda Mancuso MD Facility[facility] Start: 10-08-2024 End: 10-09-2024 [facility] Start: 09-29-2024 End: 09-29-2024 [...] 09-19-2024 End: 09-19-2024 ambulatory Syeda Mancuso MD Facility[facility] Start: 08-16-2024 End: 08-16-2024 Bamboo flowsheet Adelaida Carrion INTERN Work Phone: [facility] Start: 08-16-2024 End: 08-16-2024 Bamboo flowsheet Adelaida Carrion INTERN Work Phone: [facility] Start: 08-16-2024 End: 08-16-2024 Office outpatient visit 15 minutes Adelaida Carrion INTERN Work Phone: [facility] Comment on above: Primary hypertension (CMS/HCC) (Primary Dx); Bronchitis; Bilateral lower extremity edema; Morbid (severe) obesity due to excess calories (CMS/HCC); Pre-diabetes; Allergic rhinitis, unspecified seasonality, unspecified trigger; Encounter for screening mammogram for malignant neoplasm of breast; Former cigarette smoker Start: 08-16-2024 End: 08-16-2024 ambulatory ADELAIDA YINGHHOLZ Not Available Start: 08-08-2024 End: 08-08-2024 ambulatory Syeda Mancuso MD Facility: [facility] Start: 07-27-2024 End: 07-27-2024 Bamboo flowsheet Adelaida Carrion INTERN Work Phone: [facility] Start: 07-27-2024 End: 07-27-2024 Bamboo flowsheet Adelaidamonse Carrion INTERN Work Phone: [facility] Start: 07-27-2024 End: 07-27-2024 Office outpatient visit 15 minutes Adelaida Carrion INTERN Work Phone: [facility] Comment on above: Primary hypertension (CMS/HCC) (Primary Dx); Morbid (severe) obesity due to excess calories (CMS/HCC); Essential (primary) hypertension (CMS/HCC); Allergic rhinitis, unspecified; Gastro-esophageal reflux disease without esophagitis; Bilateral lower extremity edema; Bronchitis Start: 07-27-2024 End: 07-27-2024 ambulatory ADELAIDA YINGHHOLZ Not Available Start: 07-26-2024 End: 07-26-2024 Bamboo [...] Start: 06-14-2024 End: 06-14-2024 Refill Adelaida Carrion INTERN Work Phone: [facility] Comment on [...] 05-12-2024 End: 05-12-2024 Bamboo flowsheet Adelaida Carrion INTERN Work Phone: [facility] Start: 05-12-2024 End: 05-12-2024 Bamboo flowsheet Adelaida Carrion INTERN Work Phone: [facility] Start: 05-12-2024 End: 05-12-2024 Office outpatient visit 25 minutes Adelaida Carrion INTERN Work Phone: [facility] Comment on above: Primary hypertension (CMS/HCC) (Primary Dx); Chronic kidney disease, stage 3a (HCC) ([facility]/HCC); Morbid (severe) obesity due to excess calories ([facility]/HCC); Body mass index (BMI) 45.0-49.9, adult ([facility]/HCC); OSMANY (obstructive sleep apnea); Hemiparesis, right ([facility]/HCC); Gastroesophageal reflux disease, unspecified whether esophagitis present; Metabolic encephalopathy; Essential (primary) hypertension ([facility]/HCC); Allergic rhinitis, unspecified; Gastro-esophageal reflux disease without esophagitis; Bilateral lower extremity edema Start: 05-12-2024 End: 05-12-2024 ambulatory ADELAIDA SHEYLA Not Available Start: 05-09-2024 End: 05-09-2024 ambulatory Syeda Mancuso MD Facility[facility] Start: 04-12-2024 End: 04-12-2024 Refill Juany REDDY Work Phone: [facility] Comment on above: Transient alteration of awareness (Primary Dx); Restless leg Start: 04-07-2024 End: 04-07-2024 Patient encounter procedure David Foster PhD Work Phone: [facility] Comment on above: Metabolic encephalop athy (Primary Dx); Memory change; Altered mental status, unspecified altered mental status type; Concentration deficit; PTSD (post-traumatic stress disorder) ([facility]); Bipolar affective disorder, remission status unspecified ([facility]); Family history of dementia; 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[facility]); OSMANY (obstructive sleep apnea) Start: 04-07-2024 End: 04-07-2024 ambulatory ADELAIDA SHEYLA Not Available Start: 03-22-2024 End: 03-22-2024 ambulatory RACHEL MITCHELL Not Available Start: 03-16-2024 End: 03-16-2024 Bamboo flowsheet Adelaida Sheyla INTERN Work Phone: [facility] Start: 03-16-2024 End: 03-16-2024 Bamboo flowsheet Adelaida Carrion INTERN Work Phone: [facility] Start: 03-16-2024 End: 03-16-2024 Office outpatient visit 25 minutes Adelaida Sheyla INTERN Work Phone: [facility] Comment on above: Metabolic encephalop athy (Primary Dx); OSMANY (obstructive sleep apnea); Morbid obesity (CMS/HCC); Bilateral lower extremity edema; Tobacco dependence; Bipolar disorder with severe depression (CMS/HCC); At risk for polypharmacy; Anxiety; Primary hypertension (CMS/HCC); Right bundle branch block (RBBB) determined by electrocardiography Start: 03-16-2024 End: 03-16-2024 ambulatory ADELAIDA CARRION Not Available Start: 03-15-2024 End: 03-16-2024 Telephone encounter David Norman MA [facility] Start: 03-14-2024 End: 03-14-2024 BamISVWorldizabela Foster PhD Work Phone: [facility] Start: 03-14-2024 End: 03-14-2024 [facility]am[place] Cross[employer] Consult[employer] Groupizabela Foster PhD Work Phone: [facility] Start: 03-14-2024 End: 03-14-2024 ambulatory DAVID FOSTER Not Available Start: 03-14-2024 End: 03-14-2024 Patient encounter procedure David Foster PhD Work Phone: [facility] Comment on above: Altered mental statu s, unspecified altered mental status type (Primary Dx); Memory change; Concentration deficit; 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 (CMS/HCC); PTSD (post-traumatic stress disorder) (CMS/HCC); Bipolar affective disorder, remission status unspecified (CMS/HCC); Family history of dementia Start: 03-10-2024 End: 03-10-2024 Office outpatient visit 25 minutes Rachel REDDY Work Phone: [facility] Comment on above: Altered mental statu s, unspecified altered mental status type (Primary Dx); Restless leg; 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CMS/HCC); OSMANY (obstructive sleep apnea) Start: 03-10-2024 End: 03-10-2024 ambulatory RACHEL HILL Not Available Start: 03-03-2024 End: 03-07-2024 Evaluation and management of inpatient Adelaida Carrion Facility:[facility] Start: 03-02-2024 End: 03-04-2024 Clinisync Result Encounter Generic External Data Provider [facility] External Department Unsolicited Start: 03-02-2024 End: 03-04-2024 Clinisync Result Encounter Generic External Data Provider [facility] External Department Unsolicited Start: 03-02-2024 End: 03-02-2024 Refill Adelaida Carrion INTERN Work Phone: [facility] Comment on above: Yeast infection of t he skin Start: 03-01-2024 End: 03-01-2024 ambulatory JUANY LOWGeorgette Not Available Start: 03-01-2024 End: 03-01-2024 Office outpatient visit 25 minutes Juany REDDY Work Phone: [facility] [place] [address] Comment on above: Metabolic encephalop athy (Primary Dx); OSMANY (obstructive sleep apnea); Restless leg; 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 (CMS/HCC); Degeneration of intervertebral disc of lumbar region with discogenic back pain and lower extremity pain; Memory change Start: 02-28-2024 End: 02-29-2024 Refill Adelaida Carrion INTERN Work Phone: [facility] Comment on above: Allergic rhinitis, u nspecified Start: 02-24-2024 End: 02-24-2024 Refill Adelaida Carrion INTERN Work Phone: [facility] Comment on above: Essential (primary) hypertension (CMS/HCC); Allergic rhinitis, unspecified Start: 02-16-2024 End: 02-16-2024 Bamboo flowsheet Adelaida Carrion INTERN Work Phone: [facility] Start: 02-16-2024 End: 02-23-2024 Clinisync Result Encounter Adelaida Carrion INTERN Work Phone: [facility] External Department Unsolicited Start: 02-16-2024 End: 02-23-2024 Clinisync Result Encounter Adelaida Carrion INTERN Work Phone: [facility] External Department Unsolicited Start: 02-16-2024 End: 02-16-2024 Patient encounter procedure Adelaida Carrion INTERN Work Phone: [facility] Start: 02-16-2024 End: 02-16-2024 Periodic preventive med est patient 40-64yrs Adelaida Sousabob INTERN Work Phone: [facility] Comment on above: Well woman exam with routine gynecological exam (Primary Dx); Morbid obesity (CMS/HCC) Start: 02-16-2024 End: 02-16-2024 ambulatory ADELAIDA SHEYLA Not Available Start: 02-04-2024 End: 02-04-2024 Refill Angle Brown INTERN Work Phone: [facility] [place] [address] [facility] Comment on above: Restless leg Start: 01-28-2024 End: 01-28-2024 Bamboo flowsheet Adelaida Carrion INTERN Work Phone: [facility] Start: 01-28-2024 End: 01-28-2024 Bamboo flowsheet Adelaida Carrion INTERN Work Phone: [facility] Start: 01-28-2024 End: 01-28-2024 Office outpatient visit 15 minutes Adelaida Sousabob INTERN Work Phone: [facility] Comment on above: Acute cystitis witho ut hematuria (Primary Dx); Tobacco dependence; Needs flu shot; Morbid obesity (CMS/HCC) Start: 01-28-2024 End: 01-28-2024 ambulatory ADELAIDA SHEYLA Not Available Start: 01-25-2024 End: 01-25-2024 ambulatory Syeda Mancuso MD [facility] Start: 01-21-2024 End: 01-25-2024 Clinisync Result Encounter Generic External Data Provider [facility] External Department Unsolicited Start: 01-21-2024 End: 01-25-2024 Clinisync Result Encounter Generic External Data Provider [facility] External Department Unsolicited Start: 01-05-2024 End: 01-05-2024 Clinisync Result Encounter Adelaida Sousabob INTERN Work Phone: [facility] External Department Unsolicited Start: 01-05-2024 End: 01-05-2024 Clinisync Result Encounter Adelaida Sousabob INTERN Work Phone: [facility] External Department Unsolicited Start: 01-04-2024 End: 01-04-2024 Bamboo flowsheet Adelaida Sheyla INTERN Work Phone: [facility] Start: 01-04-2024 End: 01-04-2024 Bamboo flowsheet Adelaida Sousabob INTERN Work Phone: [facility] Start: 01-04-2024 End: 01-04-2024 Office outpatient visit 25 minutes Adelaida Sheyla INTERN Work Phone: [facility] Comment on above: Bilateral lower extr emity edema (Primary Dx); Essential (primary) hypertension (CMS/HCC); Allergic rhinitis, unspecified; OSMANY (obstructive sleep apnea); Primary hypertension (CMS/HCC); Morbid obesity (CMS/HCC) Start: 01-04-2024 End: 01-04-2024 ambulatory ADELAIDA SHEYLA Not Available Start: 12-30-2023 End: 12-30-2023 Refill Adelaida Sheyla INTERN Work Phone: [facility] Comment on above: Lower extremity elis a Start: 12-09-2023 End: 12-09-2023 Office outpatient visit 25 minutes Juany Caballero INTERN Work Phone: [facility] [place] [address] [facility] Comment on above: OSMANY (obstructive sle ep apnea) (Primary Dx); Restless leg Start: 12-08-2023 End: 12-08-2023 Office outpatient visit 25 minutes Angle Brown INTERN Work Phone: [facility] [place] [facility] Comment on above: 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CMS /HCC) (Primary Dx); Restless leg; Metabolic encephalopathy Start: 12-08-2023 End: 12-08-2023 Bamboo flowsheet Angle Brown INTERN Work Phone: [facility] Start: 12-08-2023 End: 12-08-2023 Bamboo flowsheet Angle Brown INTERN Work Phone: [facility] Start: 11-27-2023 End: 11-27-2023 Refill Adelaida Carrion INTERN Work Phone: [facility] Comment on above: Yeast infection of t he skin (Primary Dx) Start: 05-21-2023 Refill Adelaida Carrion INTERN Work Phone: [facility] Comment on above: Acute cystitis with hematuria (Primary Dx) Start: 05-18-2023 End: 05-18-2023 Office outpatient visit 25 minutes Adelaida Carrion NP Work Phone: [facility] Comment on above: Encounter for [...] encounter Start: 05-18-2023 Bamboo flowsheet Adelaida Carrion INTERN Work Phone: [facility] Start: 05-18-2023 Bamboo flowsheet Adelaida Carrion INTERN Work Phone: [facility] Start: 05-18-2023 End: 05-18-2023 Patient encounter procedure Adelaida Carrion NP Work Phone: [facility] Start: 03-23-2023 End: 03-23-2023 Admission to same day surgery center Adelaida Carrion Work Phone: [facility] Work Phone: Start: 03-23-2023 End: 03-23-2023 ambulatory Adelaida Crarion Work Phone: [facility] Work Phone: Start: 02-12-2023 End: 02-12-2023 ambulatory Jace Graham Other [employer] Other Start: 02-12-2023 Telephone encounter Jace CORADO G Sorter Operator Start: 12-19-2022 End: 12-19-2022 ambulatory Rosemary Kirkland Other [facility] [employer] Other Start: 12-19-2022 Office outpatient ne w 10 minutes Rosemary Kirkland [facility] José Miguel Start: 11-17-2022 End: 11-20-2022 Evaluation and management of inpatient Adelaida Carrion Work Phone: [facility] Work Phone: Start: 09-04-2022 ambulatory ARIAN JOHNSON . Facili ty:H1 Start: 08-26-2022 ambulatory NARENDRANATH LAKSHMIPATHY . Facility:H1 Start: 08-08-2022 End: 08-09-2022 ambulatory LIVIER CARRION Facility:H1 Start: 07-25-2022 End: 07-26-2022 ambulatory RDA ADELAIDAMonse CARRION Facility:H1 Start: 07-15-2022 End: 07-15-2022 ambulatory NARENDRANATH LAKSHMIPATHY . Facility:H1 Start: 07-11-2022 ambulatory NARENDRANATH LAKSHMIPATHY . Facility:H1 Start: 06-26-2022 End: 06-27-[address] FINA NIXON . Facility:H1 Start: 06-11-2022 ambulatory LIVEIR CARRION Facil ity:H1 Start: 05-21-2022 End: 06-11-2022 ambulatory RDA ADELAIDA SHEYLA Facility:H1 Start: 05-08-2022 End: 05-09-2022 ambulatory LIVIER CARRION Facility:H1 Start: 04-28-2022 End: 04-28-2022 ambulatory LIVIER CARRION Facility:H1 Start: 04-03-2022 End: 04-04-[address] FINA NIXON . Facility:H1 Start: 03-19-2022 End: 03-20-2022 ambulatory LIVIER CARRION Facility:H1 Start: 02-20-2022 End: 02-20-2022 ambulatory GILMER NEVES Facility:H1 Start: 01-10-2022 End: 02-12-2022 ambulatory BRIDGETTE Ca [facility] Facility:H1 Start: 01-02-2022 End: 01-03-[address] FINA NIXON . Facility:H1 Start: 01-01-2022 End: 01-02-2022 ambulatory BRIDGETTE Ca [facility] Facility:H1 Start: 12-16-2021 End: 12-16-2021 ambulatory [...] End: 07-03-2018 Patient encounter procedure SUKI ESCALANTE Facility:[facility] C Procedures Date Procedure Procedure Detail Performing Clinician Start: 11-23-2024 MR LUMBAR SPINE WO CON Generic External Data Provider Start: 11-23-2024 XR CHEST 2V Michel Pocos DO Work Phone: Start: 11-23-2024 TBH MICROALB CREAT RATIO RANDOM Adelaida Sheyla INTERN Work Phone: Start: 11-14-2024 IGP,APTIMA HPV,AGE GDLN Adelaida Hejaniya INTERN Work Phone: Start: 10-27-2024 Radiologic examination knee 3 views Michel Pocos DO Work Phone: Start: 09-29-2024 Radex hips bilateral with pelvis 2 views Generic External Data Provider Start: 09-26-2024 CT LUNG SCREENING LOW DOSE Adelaida Carrion INTERN Work Phone: Start: 09-26-2024 MM TOMOSYNTHESIS SCREENING BI Adelaida Carrion INTERN Work Phone: Start: 09-26-2024 XR SHOULDER RT MIN 2V Generic External D hemanth Provider Start: 09-26-2024 Mammography Adelaida Sousabob INTERN Work Phone: Start: 08-16-2024 Hemoglobin glycosylated a1c Adelaida Carrion INTERN Work Phone: Start: 03-02-2024 BLOOD CULTURE 1 Generic External Davon a Provider Start: 02-16-2024 IGP,APTIMA HPV,AGE GDLN Adelaida Carrion INTERN Work Phone: Start: 01-28-2024 Urnls dip stick/tablet rgnt non-auto w/o micrscp Adelaida Carrion INTERN Work Phone: Start: 01-21-2024 MHPT CULT,URINE Generic External Davon a Provider Start: 01-05-2024 ALL BASIC METABOLIC PANEL Adelaida Iglesiasnena INTERN Work Phone: Start: 09-18-2023 Mammography Adelaida Carrion INTERN Work Phone: Start: 03-23-2023 Screening colonoscopy Adelaida Iglesiasnena Work Phone: Start: 03-23-2023 Colonoscopy Adelaida Merrybob INTERN Work Phone: Start: 09-15-2022 Mammography Adelaida Carrion INTERN Work Phone: Start: 08-28-2022 Microscopic observation [Identifier] in Cervix by Cyto stain Adelaida Sousabob INTERN Work Phone: Start: 07-02-2018 ANESTH KNEE AREA SURGERY CHAPARRITA HENDRICKS Start: 07-02-2018 REMOVAL OF SUPPORT IMPLANT SUKI ESCALANTE Start: 07-02-2018 TREAT KNEECAP FRACTURE SUKI ESCALANTE History of operative procedure on knee Status post arthroscopic surgery of right knee Scott REDDY Work Phone: Plan of Treatment Date Care Activity Detail Author Start: 03-23-2033 Screening for malign ant neoplasm of colon [facility] Start: 09-26-2025 Screening for malign ant neoplasm of breast Mammogram [facility] Start: 09-26-2025 Screening for malign ant neoplasm of lung Lung Cancer Screening Shared Decision Making [facility] Comment on above: Postponed from 12/05 (Other Medical Reasons) Start: 08-28-2025 Screening for malign ant neoplasm of cervix [facility] Start: 02-15-2025 Medicare Annual Well ness (AWV) Medicare Annual Wellness (AWV) [facility] Start: 02-13-2025 End: 02-13-2025 Patient encounter procedure 02/13/2025 9:40 AM EST [facility] [address] [place] [address] Adelaida Carrion, BRIANA [address] [place] [phone] [facility] Start: 12-27-2024 End: 12-27-2024 Patient encounter procedure 12/27/2024 10:00 AM EDT [facility] [address] [place] [address] Scott Stone PA [address] [place] [address] [facility] Start: 12-26-2024 End: 12-26-2024 Patient encounter procedure 12/26/2024 10:00 AM EDT Office Visit [facility] Kaufman [facility] [address] [place] [phone] Scott Stone PA [address] [place] [address] [facility]rived [facility] Comment on above: Arrived Start: 2024 Influenza vaccination Influenza Vacc ine (#1) [facility] Start: 11-18-2024 End: 11-18-2025 XR Chest 2 Views XR chest 2 views Imaging Routine Preoperative testing Expected: 11/18/2024 (Approximate), Expires: 11/18/2025 [facility] Work Phone: Comment on above: Expected: 11/18/2024 (Approximate), Expires: 11/18/2025 Start: 11-18-2024 End: 11-18-2024 Patient [facility] Comment on above: Arrived Start: 11-17-2024 End: 11-17-2024 Professional / ancillary services management 11/17/2024 8:45 AM EDT Ancillary Procedure [facility] [address] [place] [place] [address] [facility] Start: 11-14-2024 End: 11-14-2025 25-hydroxyvitamin D3 [Mass/volume] in Serum or Plasma Vitamin D 25 hydroxy Lab Routine Chronic kidney disease, stage 3a (CMS-HCC) Expected: 11/14/2024 (Approximate), Expires: 11/14/2025 [facility] Comment on above: Expected: 11/14/2024 (Approximate), Expires: 11/14/2025 Start: 11-14-2024 End: 11-14-2025 CBC W Auto Differential panel - Blood CBC and differential Lab Routine Anemia, unspecified type Expected: 11/14/2024 (Approximate), Expires: 11/14/2025 [facility] Comment on above: Expected: 11/14/2024 (Approximate), Expires: 11/14/2025 Start: 11-14-2024 End: 11-14-2025 Comprehensive metabolic 2000 panel - Serum or Plasma Comprehensive metabolic panel Lab Routine Primary hypertension Bilateral lower extremity edema Osteoporosis, unspecified osteoporosis type, unspecified pathological fracture presence Chronic kidney disease, stage 3a (CMS-HCC) Pre-diabetes Expected: 11/14/2024 (Approximate), Expires: 11/14/2025 [facility] Comment on above: Expected: 11/14/2024 (Approximate), Expires: 11/14/2025 Start: 11-14-2024 End: 11-14-2025 Lipid 1996 panel - Serum or Plasma Lipid panel Lab Routine Pre-diabetes Expected: 11/14/2024 (Approximate), Expires: 11/14/2025 [facility] Comment on above: Expected: 11/14/2024 (Approximate), Expires: 11/14/2025 Start: 11-14-2024 End: 11-14-2025 Microalbumin/Creatinine panel in random Urine Microalbumin / creatinine, urine ratio Lab Routine Primary hypertension Pre-diabetes Expected: 11/14/2024 (Approximate), Expires: 11/14/2025 [facility] Comment on above: Expected: 11/14/2024 (Approximate), Expires: 11/14/2025 Start: 11-14-2024 End: 11-14-2025 THIN PREP TIS PAP AND HR HPV DNA THIN PREP TIS PAP AND HR HPV DNA Pathology and Cytology Routine Well woman exam with routine gynecological exam Expected: 11/14/2024 (Approximate), Expires: 11/14/2025 [facility] Work Phone: Comment on above: Expected: 11/14/2024 (Approximate), Expires: 11/14/2025 Start: 11-14-2024 End: 11-14-2025 Urinalysis complete panel - Urine Urinalysis with reflex microscopic (clean catch) Lab Routine Primary hypertension Pre-diabetes Expected: 11/14/2024 (Approximate), Expires: 11/14/2025 [facility] Comment on above: Expected: 11/14/2024 (Approximate), Expires: 11/14/2025 Start: 11-14-2024 End: 11-14-2024 Patient encounter procedure [facility] Comment on above: Morbid (severe) obes ity due to excess calories [place] (Primary Dx); Well woman [...] fracture presence Expected: 10/13/2024 (Approximate), Expires: 10/13/2025 [facility] Work Phone: Comment on above: Expected: 10/13/2024 (Approximate), Expires: 10/13/2025 Start: 10-13-2024 End: 10-13-2024 Patient encounter procedure 10/13/2024 9:00 AM EDT Office Visit [facility] [address] [place] [phone] Adelaida Carrion NP [address] [place] [address] Arrived [facility] Comment on above: Arrived Start: 09-22-2024 End: 09-22-2024 Patient encounter procedure 09/22/2024 11:00 AM EDT Office Visit [place] [address] [place] [phone] Rachle Mitchell PA [address] [place], [place] [phone] [facility] [place] Start: 09-17-2024 Screening for malign ant neoplasm of breast Mammogram [facility] Start: 08-16-2024 End: 08-16-2025 CT Chest for screening WO contrast CT lung screening low dose Imaging Routine Former cigarette smoker Expected: 08/16/2024 (Approximate), Expires: 08/16/2025 [facility] Comment on above: Expected: 08/16/2024 (Approximate), Expires: 08/16/2025 Start: 08-16-2024 End: 10-16-2025 MG Breast - bilateral Screening Bilateral screening mammogram Imaging Routine Encounter for screening mammogram for malignant neoplasm of breast Expected: 08/16/2024 (Approximate), Expires: 10/16/2025 [facility] Work Phone: Comment on above: Expected: 08/16/2024 (Approximate), Expires: 10/16/2025 Start: 08-16-2024 End: 08-16-2024 [facility] Comment on above: Bronchitis (Primary Dx); Primary hypertension (CMS/HCC); Bilateral lower extremity edema; Morbid (severe) obesity due to excess calories (CMS/HCC); Pre-diabetes Start: 08-11-2024 End: 08-11-2024 Patient encounter procedure 08/11/2024 10:30 AM EDT [facility] [address] [place] [address] Adelaida Carrion NP [address] [place] [address] [facility] Start: 07-27-2024 End: 07-27-2024 Patient encounter procedure 07/27/2024 11:30 AM EDT [facility] [address] [place] [address] Adelaida Carrion NP [address] [place] [phone] Primary hypertension (CMS/HCC) (Primary Dx); Morbid (severe) obesity due to excess calories (CMS/HCC) [facility] Comment on above: Primary hypertension (CMS/HCC) (Primary Dx); Morbid (severe) obesity due to excess calories (CMS/HCC) Start: 07-26-2024 End: 07-26-2024 Patient encounter procedure [facility] Comment on above: Arrived Start: 06-22-2024 End: 06-22-2024 Patient encounter procedure 06/22/2024 11:20 AM EDT Office Visit [facility] [address] [place] [phone] Juany Leggett PA [address] [place], [place] [phone] [facility] [place] [facility] Start: 06-15-2024 End: 06-15-2024 Patient encounter procedure 06/15/2024 9:20 AM EDT Office Visit [facility] [address] [place] [phone] Adelaida Carrion, BRIANA [address] [place] [phone] [facility] Start: 05-24-2024 End: 05-24-2024 Patient encounter procedure [facility] Comment on above: Arrived Start: 05-18-2024 Medicare Annual Well ness (AWV) Medicare Annual Wellness (AWV) [facility] Start: 05-12-2024 End: 05-12-2024 [facility] Comment on above: Primary hypertension (CMS/HCC) (Primary Dx); Chronic kidney disease, stage 3a (HCC) (CMS/HCC); Morbid (severe) obesity due to excess calories (CMS/HCC); Body mass index (BMI) 45.0-49.9, adult (CMS/HCC); OSMANY (obstructive sleep apnea); Hemiparesis, right (CMS/HCC); Gastroesophageal reflux disease, unspecified whether esophagitis present; Metabolic encephalopathy Start: 04-07-2024 End: 04-07-2024 Patient encounter procedure 04/07/2024 12:30 PM EST Office Visit [facility] [address] [phone] [facility] Start: 04-04-2024 End: 04-04-2024 Patient encounter procedure 04/04/2024 1:20 PM EST Office Visit [facility] [address] [place] [phone] Adelaida Carrion, BRIANA [address] [place] [phone] [facility] Start: 03-22-2024 End: 03-22-2024 Clinical Support 03/22/2024 10:00 AM EST Clinical Support [facility] [place] [address] [facility] [place] [phone] [facility] [place] [facility] Start: 03-16-2024 End: 03-16-2024 Patient encounter procedure [facility] Comment on above: Metabolic encephalop athy (Primary Dx); OSMANY (obstructive sleep apnea); Morbid obesity (CMS/HCC); Bilateral lower extremity edema; Tobacco dependence; Bipolar disorder with severe depression (CMS/HCC); At risk for polypharmacy; Anxiety Start: 03-14-2024 End: 03-14-2024 Patient encounter procedure 03/14/2024 10:00 AM EST Office Visit [facility] [address] [address] [place] [address] David Foster, PhD [address] [place], [place] [phone] [facility] Start: 03-11-2024 End: 03-11-2025 EEG 2 Hour Routine EEG 2 Hour Routine Neurology Routine Altered mental status, unspecified altered mental status type Expected: 03/11/2024 (Approximate), Expires: 03/11/2025 [facility] Work Phone: Comment on above: Expected: 03/11/2024 (Approximate), Expires: 03/11/2025 Start: 03-10-2024 End: 03-10-2024 Patient encounter procedure 03/10/2024 3:40 PM EST Office Visit [facility] [address] [place] [phone] Rachel Mitchell PA [address] [place] [address] [facility] Start: 03-01-2024 End: 03-01-2024 Patient encounter procedure 03/01/2024 12:00 PM EST Office Visit [facility] [place] [address] [facility] [place] [phone] Juany Leggett PA [address] [place] [address] [facility] Start: 02-29-2024 End: 02-29-2024 Patient encounter procedure 02/29/2024 2:40 PM EST Office Visit [facility] [place] [facility] [address] [place] [address] Angle Brown, INTERN [address] [place] [address] [facility] Start: 02-16-2024 End: 02-15-2025 THIN PREP TIS PAP AND HR HPV DNA THIN PREP TIS PAP AND HR HPV DNA Pathology and Cytology Routine Well woman exam with routine gynecological exam Expected: 02/16/2024 (Approximate), Expires: 02/15/2025 [facility] Work Phone: Comment on above: Expected: 02/16/2024 (Approximate), Expires: 02/15/2025 Start: 02-16-2024 End: 02-16-2024 Patient encounter procedure 02/16/2024 11:30 AM EST Procedure Visit [facility] [address] [place] [address] Adelaida Carrion NP [address] [place] [address] [facility] Start: 02-04-2024 Influenza vaccination Influenza Vacc ine (#1) [facility] Comment on above: Postponed from 12/05 (Patient Does Not Have Time) Start: 01-28-2024 End: 01-27-2025 URINARY TRACT INFECTION (HTRX) URINARY TRACT INFECTION (HTRX) Lab Routine Acute cystitis without hematuria Expected: 01/28/2024 (Approximate), Expires: 01/27/2025 [facility] Work Phone: Comment [...] procedure 12/09/2023 10:30 AM EDT Office Visit [facility] [address] [place] [phone] Juany Caballero NP [address] [place], [place] [facility] Start: 12-08-2023 End: 12-08-2023 Patient encounter procedure 12/08/2023 3:20 PM EDT [facility] [address] [facility] [place] [phone] Angle Brown NP [address] [place], [place] [id number] [facility] Start: 09-16-2023 Screening for malign ant neoplasm of breast Mammogram [facility] Start: 08-17-2023 End: 08-17-2023 Patient encounter procedure 08/17/2023 9:20 AM EDT Office Visit [facility] [address] [place] [phone] Adelaida Carrion NP [address] [place] [phone] [facility] Start: 05-22-2023 End: 05-22-2023 Patient encounter procedure 05/22/2023 8:45 AM EST Office Visit [facility] [address] [facility] [address] [place] [address] Travon Hines PA [address] [facility] [address] [place] [address] [facility] Start: 05-18-2023 End: 05-18-2023 Patient encounter procedure 05/18/2023 4:30 PM EST Office Visit [facility] [address] [place] [phone] Adelaida Carrion, BRIANA [address] [place] [phone] Arrived [facility] Comment on above: Arrived Start: 05-18-2023 End: 05-18-2024 XR Hip - left 3 Views XR hip left 2 or 3 views Imaging Routine Left hip pain Expected: 05/18/2023 (Approximate), Expires: 05/18/2024 [facility] Work Phone: Comment on above: Expected: 05/18/2023 (Approximate), Expires: 05/18/2024 Start: 03-23-2023 [facility] Start: 11-20-2022 [facility] Start: 11-18-2022 Referral to clinical ship surveyor [facility] Start: 11-17-2022 Hospital admission [facility] Start: 11-17-2022 [facility] Start: 12-06-1991 Screening for malign ant neoplasm of cervix HPV/Cotest [facility] Start: 1961 Medicare Annual Well ness (AWV) Medicare Annual Wellness (AWV) [facility] Start: 1961 Screening for malign ant neoplasm of colon [facility] Start: 1961 Screening for malign ant neoplasm of lung Lung Cancer Screening Shared Decision Making [facility] BLOOD CULTURE 1 BLOOD CULTURE 1 Lab Routine 03/02/2024 3:20 AM EST [facility] Patient Education [facility] Work Phone: Patient referral [facility] Work Phone: XR Knee - right 3 Views XR knee 3 views right Imaging Routine Right knee pain, unspecified chronicity 10/27/2024 8:18 AM EDT [facility] Work Phone: [facility] Immunizations Immunization Date Immunization Notes Care Provider Fa cili 01-28-2024 Influenza, injectabl e, Madin Nevaeh Canine Kidney, preservative free, quadrivalent Adelaida Aichholz INTERN Work Phone: [facility] 01-28-2024 influenza virus vaccine, unspecified formulation Adelaida Aichholz INTERN Work Phone: [facility] 08-17-2023 zoster vaccine recombinant Adelaida Aichholz INTERN Work Phone: [facility] 02-13-2023 influenza, injectabl e, quadrivalent, preservative free Adelaida Aichholz INTERN Work Phone: [facility] 02-13-2023 SARS-COV-2 (COVID-19 ) vaccine, mRNA, spike protein, LNP, PF, 50 mcg/0.5 mL Adelaida Aichholz INTERN Work Phone: [facility] 02-13-2023 influenza virus vaccine, unspecified formulation Adelaida Aichholz INTERN Work Phone: [facility] 02-19-2022 diphtheria, tetanus toxoids and pertussis vaccine Adelaida Aichholz INTERN Work Phone: [facility] 03-02-2021 Moderna SARS-CoV-2 Vaccination Adelaida Aichholz INTERN Work Phone: [facility] 08-24-2020 Moderna SARS-CoV-2 Vaccination Adelaida Aichholz INTERN Work Phone: [facility] 07-27-2020 Moderna SARS-CoV-2 Vaccination Adelaida Aichholz INTERN Work Phone: [facility] 05-28-2018 influenza, injectabl e, quadrivalent, preservative free Adelaida Carrion Work Phone: [facility] 2017 pneumococcal conjuga te vaccine, 13 valent Adelaida Carrion INTERN Work Phone: [facility] Payers Date Payer Category Payer Medicare [id number] 2022 Self-pay [id number] 2022 Medicare [id number] 2022 Medicare (Managed Care) [employer] [place] [address] [id number] 2008 Unknown [id number] 1961 Unknown [id number] 2.16.840.1.686528.3.579.2 .647 1961 Unknown [id number] 2.16.840.1.220591.3.579.2 .593 1961 Unknown [id number] 2.16.840.1.984662.3.579.2 .593 1961 Unknown [id number] 2.16.840.1.279008.3.579.2 .593 1961 Unknown [id number] 2.16.840.1.008266.3.579.2 .593 1961 Unknown [id number] 2.16.840.1.425084.3.579.2 .593 1961 Unknown [id number] 2.16.840.1.608936.3.579.2 .593 1961 Unknown [id number] 2.16.840.1.414229.3.579.2 .593 1961 Unknown [id number] 2.16.840.1.711935.3.579.2 .593 1961 Unknown [id number] 2.16.840.1.624515.3.579.2 .593 1961 Unknown [id number] 2.16.840.1.713817.3.579.2 .593 1961 Unknown [id number] 2.16.840.1.845226.3.579.2 .593 1961 Unknown [id number] 2.16.840.1.981110.3.579.2 .593 1961 Unknown [id number] 2.16.840.1.675903.3.579.2 .593 1961 Unknown [id number] 2.16.840.1.325801.3.579.2 .593 1961 Unknown [id number] 2.16.840.1.721894.3.579.2 .593 1961 Unknown [id number] 2.16.840.1.448984.3.579.2 .593 1961 Unknown [id number] 2.16.840.1.643273.3.579.2 .593 1961 Unknown [id number] 2.16.840.1.579383.3.579.2 .593 1961 Unknown [id number] 2.16.840.1.126459.3.579.2 .593 1961 Unknown [id number] 2.16.840.1.804856.3.579.2 .593 1961 Unknown [id number] 2.16.840.1.672747.3.579.2 .593 1961 Unknown [id number] 2.16.840.1.450798.3.579.2 .593 1961 Unknown [id number] 2.16.840.1.735934.3.579.2 .593 1961 Unknown [id number] 2.16.840.1.368158.3.579.2 .593 1961 Unknown [id number] 2.16.840.1.825211.3.579.2 .1286 1961 Unknown [id number] 2.16.840.1.199770.3.579.2 .1259 1961 Unknown [id number] 2.16.840.1.080110.3.579.2 .1259 1961 Unknown [id number] 2.16.840.1.603206.3.579.2 .1259 1961 Unknown [id number] 2.16.840.1.085303.3.579.2 .1259 1961 Unknown [id number] 2.16.840.1.803743.3.579.2 .1259 1961 Unknown [id number] 2.16.840.1.509025.3.579.2 .1259 1961 Unknown [id number] 2.16.840.1.367283.3.579.2 .1259 1961 Unknown [id number] 2.16.840.1.958253.3.579.2 .1259 1961 Unknown [id number] 2.16.840.1.587326.3.579.2 .1259 1961 Unknown [id number] 2.16.840.1.947402.3.579.2 .1258 1961 Unknown [id number] 2.16.840.1.795178.3.579.2 .1258 1961 Unknown [id number] 2.16.840.1.067522.3.579.2 .1258 1961 Unknown [id number] 2.16.840.1.041767.3.579.2 .1258 1961 Unknown [id number] 2.16.840.1.250435.3.579.2 .1258 1961 Unknown [id number] 2.16.840.1.855302.3.579.2 .1258 1961 Unknown [id number] 2.16.840.1.787182.3.579.2 .1258 1961 Unknown [id number] 2.16.840.1.687225.3.579.2 .1258 1961 Unknown [id number] 2.16.840.1.365556.3.579.2 .1258 1961 Unknown [id number] 2.16.840.1.552710.3.579.2 .1258 1961 Unknown [id number] 2.16.840.1.493039.3.579.2 .1258 1961 Unknown [id number] 2.16.840.1.981851.3.579.2 .1258 1961 Unknown [id number] 2.16.840.1.422745.3.579.2 .1961 Unknown [id number] 2.16.840.1.873322.3.579.2 .1961 Unknown [id number] 2.16.840.1.474704.3.579.2 .1961 Unknown [id number] 2.16.840.1.055463.3.579.2 .196 1961 Unknown [id number] 2.16.840.1.604044.3.579.2 .196 1961 Unknown [id number] 2.16.840.1.455317.3.579.2 .196 1961 Unknown [id number] 2.16.840.1.263235.3.579.2 .196 1961 Unknown [id number] 2.16.840.1.025536.3.579.2 .196 1959 Medicare [id number] 1959 Unknown [id number] Private Health Insurance [facility] [id number] Unknown [id number] 2.16.840.1.552962.3.579.2 .531 Unknown [id number] 2.16.840.1.666161.3.579.2 .531 Social History Date Type Detail Facility Start: 11-18-2022 End: 10-14-2023 Tobacco smoking status NHIS Ex-smoker (finding) [facility] Start: 1960 Sex Assigned At Female [facility] Start: 03-25-2023 End: 08-16-2023 Sex Assigned At [facility] Start: 04-06-1976 End: 04-06-2016 History of tobacco [...] Facility 11-20-2022 Functional status Patient at Baseline [facility] Work Phone: Mental Status Date Assessment Result Facility 11-20-2022 Cognitive function Cognitive Sta tus Patient is Progressing Toward Baseline [facility] Work Phone: Clinical Notes 10-03-2021 to 12-26-2024 MAUREEN Dailey - 12/26/2024 10:00 AM EDTPatient Darrell Patricio - 11/18/2024 10:15 AM Padmaja Carrion [...] from the surgery. documented in this encounter [facility] 12-26-2024 Instructions MAUREEN Dailey - 12/26/2024 10:00 [...] from the surgery. documented in this encounter [facility] 11-18-2024 History of Present illness Narrative Images [...] biotin 5 MG tablet Pt taking OTC ([facility]) Calcium Citrate-Vitamin D (CITRACAL + D PO) Pt taking OTC ([facility]) Cannabinoids (medical cannabis) 1 each carvedilol (COREG) [...] Daily Magnesium 400 MG capsule Pt taking OTC([facility]) Melatonin 12 MG tablet 1 tablet, Nightly Multiple Vitamins-Minerals (BARIATRIC MULTIVITAMINS/IRON PO) Pt taking OTC ([facility]) omeprazole (PRILOSEC) 20 mg, Oral, Daily [...] 12:22 PM EDT documented in this encounter [facility] 11-14-2024 History of Present illness Narrative Images [...] biotin 5 MG tablet Pt taking OTC ([facility]) Calcium Citrate-Vitamin D (CITRACAL + D PO) Pt taking OTC [facility]) Cannabinoids (medical cannabis) 1 each carvedilol (COREG) [...] Daily Magnesium 400 MG capsule Pt taking OTC([facility]) Melatonin 12 MG tablet 1 tablet, Nightly Multiple Vitamins-Minerals (BARIATRIC MULTIVITAMINS/IRON PO) Pt taking OTC ([facility]) omeprazole (PRILOSEC) 20 mg, Oral, Daily before [...] Anxiety 05/18/2023 Bipolar disorder with severe depression ([facility]) 05/18/2023 Brain lesion Brain vascular malformation ([facility]) Chronic pain disorder Closed fracture of patella 02/04/2018 Colon polyps Constipation Degenerative cervical disc Degenerative lumbar disc Depression 05/18/2023 Diastolic dysfunction Dizziness 05/18/2023 Dysphagia Fibromyalgia Fibromyalgia Fibromyalgia, primary 2009 Gastrocnemius equinus GERD (gastroesophageal reflux disease) Heart murmur Hematoma of right breast Hemiparesis (HCC) Hemiparesis, right ([facility]) Hemorrhoid int/external hemorrhoids Hiatal [...] nursing note reviewed. Exam conducted with a bag machine operator present. Constitutional: General: She is [...] Morbid (severe) obesity due to excess calories ([facility]) Discussed with patient their BMI (actual, verses recommended). We have also discussed lifestyle modifications: attempts to perform physical activity as chronic conditions allow, also to monitor dietary intake: increasing protein/fruits/veggies and lowering carb intake (unless contraindicated). Limit sodas, juices, and sugary drinks. Has had bariatric surgeries in the past documented in this encounter [facility] 10-27-2024 History of Present illness Narrative Images [...] biotin 5 MG tablet Pt taking OTC ([facility]) Calcium Citrate-Vitamin D (CITRACAL + D PO) Pt taking OTC ([facility]) Cannabinoids (medical cannabis) 1 each carvedilol (COREG) [...] Daily Magnesium 400 MG capsule Pt taking OTC([facility]) Melatonin 12 MG tablet 1 tablet, Nightly Multiple Vitamins-Minerals (BARIATRIC MULTIVITAMINS/IRON PO) Pt taking OTC ([facility]) omeprazole (PRILOSEC) 20 mg, Oral, Daily before [...] 12:11 PM EDT documented in this encounter [facility] 10-13-2024 History of Present illness Narrative Associated [...] CUSHING Doctor that manages your OSMANY: Daniela Associated Problem(s): Disorientation [place] to be related to not using PAP [...] going to have out patient MRI . [place] that she had some encephalopathy with not wearing PAP She is now wearing her pap. Is back to her baseline able to remember words etc. No weakness no dizziness noted either Follows with Juany Rascon NP SUBJECTIVE: MEDICATIONS: Current Outpatient Medications Medication Instructions amLODIPine (NORVASC) 10 mg, Oral, Daily biotin 5 MG tablet Pt taking OTC ([facility]) Calcium Citrate-Vitamin D (CITRACAL + D PO) Pt taking OTC ([facility]) carvedilol (COREG) 12.5 mg, Oral, 2 times [...] Daily Magnesium 400 MG capsule Pt taking OTC([facility]) Melatonin 12 MG tablet 1 tablet, Nightly Multiple Vitamins-Minerals (BARIATRIC MULTIVITAMINS/IRON PO) Pt taking OTC ([facility]) omeprazole (PRILOSEC) 20 mg, Oral, Daily before [...] meds: amlodipine, losartan, aldactone Disorientation - Primary [place] to be related to not using PAP [...] MG DR capsule documented in this encounter [facility] 08-16-2024 History of Present illness Narrative Associated [...] biotin 5 MG tablet Pt taking OTC ([facility]) Calcium Citrate-Vitamin D (CITRACAL + D PO) Pt taking OTC ([facility]) carvedilol (COREG) 12.5 mg, Oral, 2 times daily with meals cetirizine (ZYRTEC) 10 mg, Oral, Daily diclofenac (Voltaren) 50 MG EC tablet DULoxetine (CYMBALTA) 60 mg, 2 times daily fluticasone (Flonase) 50 MCG/ACT nasal spray 2 sprays, Each Nostril, Daily gabapentin (NEURONTIN) 300 mg, Oral, 2 times daily, Due now losartan (COZAAR) 100 mg, Oral, Daily Magnesium 400 MG capsule Pt taking OTC([facility]) Melatonin 12 MG tablet 1 tablet, Nightly Multiple Vitamins-Minerals (BARIATRIC MULTIVITAMINS/IRON PO) Pt taking OTC ([facility]) omeprazole (PRILOSEC) 20 mg, Oral, Daily [...] 05/18/2023 Bipolar disorder with severe depression ([facility]) 05/18/2023 Brain lesion Brain vascular malformation Chronic pain disorder Closed fracture of patella 02/04/2018 Colon polyps Constipation Degenerative cervical disc Degenerative lumbar disc Depression (CMS/HCC) 05/18/2023 Diastolic dysfunction Dizziness 05/18/2023 Dysphagia Fibromyalgia Fibromyalgia Gastrocnemius equinus GERD (gastroesophageal reflux disease) Heart murmur Hematoma of right breast Hemiparesis ([facility]) Hemiparesis, right (CMS/[facility]) Hemorrhoid int/external hemorrhoids Hiatal hernia Iron deficiency Left foot pain 03/25/2023 Lower extremity edema Mood disorder ([facility]) mixed mood disorder OSMANY (obstructive sleep apnea) Osteoporosis (CMS/[facility]) Overactive bladder Pre-diabetes Primary hypertension ([facility]) 03/25/2023 PTSD (post-traumatic stress disorder) ([facility]) Restless leg Right knee pain Right sided weakness S/P bariatric surgery Shingles Slurred speech Stroke ([facility]) 2018 Tenosynovitis, de Quervain [...] trelegy 100's resolved documented in this encounter [facility] 08-16-2024 Instructions Adelaida Carrion NP - 08/16/2024 11:30 AM EDT Mammogram and lung cancer CT documented in this encounter [facility] 07-27-2024 History of Present illness Narrative Associated Problem(s): Bronchitis Continue OTC mucus relief meds Will add trelegy for bronchitis 100's #2 samples lot [id number], exp 10/28 Fu if not better No s/s resp distress [facility] ER- 07/24/24 Bronchitis & Leurisy [...] with chief complaint of Hospital Follow-up HPI: [facility] ER- 07/24/24 Bronchitis & Leurisy [...] biotin 5 MG tablet Pt taking OTC ([facility]) Calcium Citrate-Vitamin D (CITRACAL + D PO) Pt taking OTC ([facility]) carvedilol (COREG) 12.5 mg, Oral, 2 times daily with meals cetirizine (ZYRTEC) 10 mg, Oral, Daily diclofenac (Voltaren) 50 MG EC tablet DULoxetine (CYMBALTA) 60 mg, 2 times daily fluticasone (Flonase) 50 MCG/ACT nasal spray 2 sprays, Each Nostril, Daily gabapentin (NEURONTIN) 300 mg, Oral, 2 times daily, Due now losartan (COZAAR) 100 mg, Oral, Daily Magnesium 400 MG capsule Pt taking OTC([facility]) Melatonin 12 MG tablet 1 tablet, Nightly Multiple Vitamins-Minerals (BARIATRIC MULTIVITAMINS/IRON PO) Pt taking OTC ([facility]) omeprazole (PRILOSEC) 20 mg, Oral, Daily before [...] 05/18/2023 Bipolar disorder with severe depression ([facility]) 05/18/2023 Brain lesion Brain vascular malformation Chronic [...] Osteoporosis (CMS/HCC) Overactive bladder Pre-diabetes Primary hypertension ([facility]) 03/25/2023 PTSD (post-traumatic stress disorder) ([facility]) Restless leg Right knee pain Right sided weakness S/P bariatric surgery Shingles Slurred speech Stroke ([facility]) 2017 Tenosynovitis, de Quervain Thoracic back pain, [...] meds: amlodipine, losartan documented in this encounter [facility] 07-26-2024 History of Present illness Narrative Images from the original note were not included. Subjective Chief Complaint Patient presents with Altered Mental Status Past Medical History: Diagnosis Date Abnormal mammogram of left breast Achilles tendinitis, right leg Acute gout of right foot, unspecified cause Allergic rhinitis 05/18/2023 Anemia Anxiety 05/18/2023 Bipolar disorder with severe depression ([facility]) 05/18/2023 Brain lesion Brain vascular malformation Chronic pain disorder Closed fracture of patella 02/04/2018 Colon polyps Constipation Degenerative cervical disc Degenerative lumbar disc Depression (CMS/HCC) 05/18/2023 Diastolic dysfunction Dizziness 05/18/2023 Dysphagia Fibromyalgia Fibromyalgia Gastrocnemius equinus GERD (gastroesophageal reflux disease) Heart murmur Hematoma of right breast Hemiparesis ([facility]) Hemiparesis, right ([facility]) Hemorrhoid int/external hemorrhoids Hiatal hernia Iron deficiency Left foot pain 03/25/2023 Lower extremity edema Mood disorder (CMS/HCC) mixed mood disorder OSMANY (obstructive sleep apnea) Osteoporosis (CMS/HCC) Overactive bladder Pre-diabetes Primary hypertension (CMS/HCC) 03/25/2023 PTSD (post-traumatic stress disorder) ([facility]) Restless leg Right knee pain Right sided weakness S/P bariatric surgery Shingles Slurred speech Stroke ([facility]) 2018 Tenosynovitis, de Quervain [...] Review Audit Reviewed by Beronica Reyes MA (Director Of Safety And Security) on 07/26/24 at 1049 Medication Order Taking? Sig Documenting Provider Last Dose Status amLODIPine (Norvasc) 10 MG tablet [id number] Take 1 tablet (10 mg) by mouth Daily Adelaida Carrion NP 06/11/242358 azithromycin (Zithromax) 250 MG tablet [id number] Day #1: 2 tablets, and Day 2-5: 1 tablet daily Adelaida Carrion NP Active biotin 5 MG tablet [id number] Pt taking OTC ([facility]) Historical Provider, Active Calcium Citrate-Vitamin D (CITRACAL + D PO) [id number] Pt taking OTC ([facility]) Historical Provider, Active carvedilol (Coreg) 12.5 MG tablet [id number] Take 1 tablet (12.5 mg) by mouth in the morning and 1 tablet (12.5 mg) in the evening. Take with meals. Adelaida Carrion NP 06/11/24 235 cetirizine (ZyrTEC) 10 MG tablet [id number] Take 1 tablet (10 mg) by mouth Daily Adelaida Carrion NP 06/11/24 235 DULoxetine (Cymbalta) [address] capsule [id number] Take 60 mg by mouth in the morning and 60 mg before bedtime. Do not crush or chew.. Active fluticasone (Flonase) 50 MCG/ACT nasal spray [id number] Administer 2 sprays into each nostril Daily Adelaida Carrion NP 06/11/24 235 gabapentin (Neurontin) 300 MG capsule [id number] Take 1 capsule (300 mg) by mouth in the morning and 1 capsule (300 mg) before bedtime. Due now. MAUREEN Akbar Active losartan (Cozaar) 100 MG tablet [id number] Take 1 tablet (100 mg) by mouth Daily Adelaida Carrion NP 06/11/24 235 Magnesium 400 MG capsule [id number] Pt taking OTC([facility]) Historical ProviderMD Active Melatonin 12 MG tablet [id number] Take 1 tablet by mouth at bedtime Active Multiple Vitamins-Minerals (BARIATRIC MULTIVITAMINS/IRON PO) [id number] Pt taking OTC ([facility]) Historical ProviderMD Active nystatin (Mycostatin) 603815 UNIT/GM powder [id number] Apply 1 application topically in the morning and 1 application before bedtime. Adelaida Carrion NP Active nystatin (Mycostatin) cream [id number] Adelaida Carrion NP Active omeprazole (PriLOSEC) [address] capsule [id number] Take 1 capsule (20 mg) by mouth in the morning. Take before meals. Adelaida Carrion NP 06/11/242358 rOPINIRole (Requip) 2 MG tablet [id number] Take 1 tablet (2 mg) by mouth at bedtime MAUREEN Akbar Active spironolactone (Aldactone) 50 MG tablet [id number] Take 1 tablet (50 mg) by mouth Daily Adelaida Carrion NP 06/11/24 235 tiZANidine (Zanaflex) 4 MG tablet [id number] Take 4 mg by mouth every 8 (eight) hours if needed for muscle spasms 1-2 tablets Adelaida Carrion NP Active traZODone (Desyrel) 150 MG tablet [id number] Take 150 mg by mouth at bedtime Active Vraylar 3 MG capsule [id number] Active HPI AMS -weaned Lacosimide -denies any further headaches and dizziness -denies any recent episodes of confusion -trouble with short and alf memory -states director long term care is mild -forgets recent conversations and events [...] triceps, wrist extensors, wrist extensors, wrist flexor, slab miller operator strength 5/5. LUE Strength deltoid, biceps, triceps, wrist extensors, wrist extensors, wrist flexor, slab miller operator strength 5/5. RLE Strength illopsoas, quadriceps, [...] not all inclusive. Patient was admitted to [facility] from the [facility] on 08/24/2023 with acute respiratory failure and confusion thought to be secondary to metabolic encephalopathy. MOCA 03/01/24 was 26/30. She notes she did speech therapy and responded well to this. She was recently evaluated at [facility] 03/02/2024 for severe encephalopathy. She had brain [...] Averages almost 6 hours a night. ___ [facility] evaluation 02/29/2024: Brain MRI with and without [...] of the brain in July 2019 showed govv-qu-tendfsye white matter changes with the largest area [...] in 2 months documented in this encounter [facility] 05-12-2024 History of Present illness Narrative A1c [...] biotin 5 MG tablet Pt taking OTC ([facility]) Calcium Citrate-Vitamin D (CITRACAL + D PO) Pt taking OTC ([facility]) carvedilol (COREG) 12.5 mg, Oral, 2 times [...] Daily Magnesium 400 MG capsule Pt taking OTC([facility]) Melatonin 12 MG tablet 1 tablet, Nightly Multiple Vitamins-Minerals (BARIATRIC MULTIVITAMINS/IRON PO) Pt taking OTC ([facility]) nystatin (Mycostatin) [id number] UNIT/GM powder 1 application , 2 times [...] 05/18/2023 Bipolar disorder with severe depression ([facility]) 05/18/2023 Brain lesion Brain vascular malformation Chronic pain disorder Closed fracture of patella 02/04/2018 Colon polyps Constipation Degenerative cervical disc Degenerative lumbar disc Depression ([facility]) 05/18/2023 Diastolic dysfunction Dizziness 05/18/2023 Dysphagia Fibromyalgia Fibromyalgia Gastrocnemius equinus GERD (gastroesophageal reflux disease) Heart murmur Hematoma of right breast Hemiparesis ([facility]) Hemiparesis, right ([facility]) Hemorrhoid int/external hemorrhoids Hiatal hernia Iron deficiency Left foot pain 03/25/2023 Lower extremity edema Mood disorder ([facility]) mixed mood disorder OSMANY (obstructive sleep apnea) Osteoporosis ([facility]) Overactive bladder Pre-diabetes Primary hypertension ([facility]) 03/25/2023 PTSD (post-traumatic stress disorder) ([facility]) Restless leg Right knee pain Right sided weakness S/P bariatric surgery Shingles Slurred speech Stroke ([facility]) 2018 Tenosynovitis, de Quervain [...] Morbid (severe) obesity due to excess calories ([facility]) Discussed with patient their BMI (actual, [...] that manages your OSMANY: Daniela Hemiparesis, right ([facility]) Stable with this from prior stroke [...] kidney disease, stage 3a (HCC) ([facility]) Monitor labs at minimum every year Body mass index (BMI) 45.0-49.9, adult ([facility]) Other Visit Diagnoses Essential (primary) hypertension ([facility]/HCC) Relevant Medications amLODIPine (Norvasc) 10 MG tablet [...] from prior stroke documented in this encounter [facility] 05-12-2024 Instructions Adelaida Carrion NP - 05/12/2024 10:00 AM EST No changes in meds documented in this encounter [facility] 04-12-2024 Telephone encounter Note 03/10/2024 Continue Gabapentin 300 mg BID for RLS. Continue clonazepam 0.5mg PO BID for RLS. This was decreased during recent hospitalization Continue Vimpat 50mg PO BID for seizure prevention [facility] 04-12-2024 Miscellaneous Notes 03/10/2024 Continue Gabapentin 300 mg BID for RLS. Continue clonazepam 0.5mg PO BID for RLS. This was decreased during recent hospitalization Continue Vimpat 50mg PO BID for seizure prevention documented in this encounter [facility] 04-07-2024 History of Present illness Narrative Images [...] homebody. 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 Diagnosed with OSMANY and RLS, wears CPAP nightly. Pain complaints include fibromyalgia and degenerative disc disease. Also has prior history of migraines which have resolved over the past 17 years. Neurological history includes small left thalamic stroke in 2016. MoCA 26/30. Patient accurately recalled this screening measure as well as her overall performance and score on it. Admitted to [facility] from the [facility] on 08/24/2023 with acute respiratory [...] any history of alcohol/substance abuse. Reformed smoker. Wiyot language Portuguese. Reported relocating from [place] to [place] in 2011. Completed a bachelor's degree. 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 Currently on disability. Resides with of 26 years along with her son, grandson, and 2 dogs. Has 2 children from a prior relationship. MEDICAL HISTORY/MEDICATION: MEDICATIONS: Current Outpatient Medications Medication Instructions amLODIPine (NORVASC) 10 mg, Oral, Daily biotin 5 MG tablet Pt taking OTC ([facility]) Calcium Citrate-Vitamin D (CITRACAL + D PO) Pt taking OTC ([facility]) carvedilol (COREG) 12.5 mg, Oral, 2 times [...] Daily Magnesium 400 MG capsule Pt taking OTC([facility]) Melatonin 12 MG tablet 1 tablet, Oral, Nightly Multiple Vitamins-Minerals (BARIATRIC MULTIVITAMINS/IRON PO) Pt taking OTC ([facility]) nystatin (Mycostatin) [id number] UNIT/GM powder 1 application , 2 times [...] design >16th %ile. Motor/Speed of Processing: Right-handed. Patient Safety Sitter strength 16th %ile with right-hand, 38th %ile [...] Learning of a word list 79th %ile ([id number]), delayed recall 93rd %ile. Recognition discriminability 93rd [...] Please contact me with any questions at [phone]. documented in this encounter [facility] 03-16-2024 History of Present illness Narrative Associated Problem(s): Right bundle branch block (RBBB) determined by electrocardiography At this point I will look at her past EKG's, She has had ECHO in past No symptoms, at this time I do not think that further testing is needed Pt is having a memory test done on apr 07 [place] Pt is anxious and afraid-pt father had [...] biotin 5 MG tablet Pt taking OTC ([facility]) Calcium Citrate-Vitamin D (CITRACAL + D PO) Pt taking OTC ([facility]) carvedilol (COREG) 12.5 mg, Oral, 2 times [...] Daily Magnesium 400 MG capsule Pt taking OTC([facility]) Melatonin 12 MG tablet 1 tablet, Oral, Nightly Multiple Vitamins-Minerals (BARIATRIC MULTIVITAMINS/IRON PO) Pt taking OTC ([facility]) nystatin (Mycostatin) [id number] UNIT/GM powder 1 application , 2 times [...] 05/18/2023 Bipolar disorder with severe depression ([facility]) 05/18/2023 Brain lesion Brain vascular malformation Chronic pain disorder Closed fracture of patella 02/04/2018 Colon polyps Constipation Degenerative cervical disc Degenerative lumbar disc Depression ([facility]) 05/18/2023 Diastolic dysfunction Dizziness 05/18/2023 Dysphagia Fibromyalgia Fibromyalgia Gastrocnemius equinus GERD (gastroesophageal reflux disease) Heart murmur Hematoma of right breast Hemiparesis ([facility]) Hemiparesis, right ([facility]) Hemorrhoid int/external hemorrhoids Hiatal hernia Iron deficiency Left foot pain 03/25/2023 Lower extremity edema Mood disorder ([facility]) mixed mood disorder OSMANY (obstructive sleep apnea) Osteoporosis ([facility]) Overactive bladder Pre-diabetes Primary hypertension ([facility]) 03/25/2023 PTSD (post-traumatic stress disorder) ([facility]) Restless leg Right knee pain Right sided weakness S/P bariatric surgery Shingles Slurred speech Stroke ([facility]) 2018 Tenosynovitis, de Quervain [...] to have evaluation documented in this encounter [facility] 03-16-2024 Instructions Adelaida Carrion NP - 03/16/2024 10:00 AM EST Spironolactone: I discontinued the 25mg script for this, sent a new script to [facility], for a 50mg pill, you will take 1 pill daily Memory testing in Apr 2024 Follow up with me in early May, sooner if needed documented in this encounter [facility] 03-16-2024 Telephone encounter Note Yep, sent to [facility]. [facility] 03-16-2024 Miscellaneous Notes Yep, sent to [facility]. Patient calls and states that hospital lowered her requip to 2 mg at bed time. Okay to send as new dosage? documented in this encounter [facility] 03-15-2024 Telephone encounter Note Patient calls and states that hospital lowered her requip to 2 mg at bed time. Okay to send as new dosage? [facility] 03-14-2024 History of Present illness Narrative Images [...] performance and score on it. Admitted to [facility] from the [facility] on 08/24/2023 with acute respiratory [...] any history of alcohol/substance abuse. Reformed smoker. Wiyot language Portuguese. Reported relocating from [place] to [place] in 2011. Completed a bachelors [...] of right breast Hemiparesis (CMS/HCC) Hemiparesis, right ([facility]) Hemorrhoid int/external hemorrhoids Hiatal hernia Iron deficiency Left foot pain 03/25/2023 Lower extremity edema Mood disorder ([facility]) mixed mood disorder OSMANY (obstructive sleep apnea) Osteoporosis ([facility]) Overactive bladder Pre-diabetes Primary hypertension ([facility]) 03/25/2023 PTSD (post-traumatic stress disorder) ([facility]) Restless leg Right knee pain Right sided weakness S/P bariatric surgery Shingles Slurred speech Stroke ([facility]) 2018 Tenosynovitis, de Quervain Thoracic back pain, unspecified back pain laterality, unspecified chronicity Tobacco dependence Vertigo, benign paroxysmal Yeast infection of the skin 05/18/2023 MEDICATIONS: Current Outpatient Medications Medication Instructions amLODIPine (NORVASC) 10 mg, Oral, Daily biotin 5 MG tablet Pt taking OTC ([facility]) Calcium Citrate-Vitamin D (CITRACAL + D PO) Pt taking OTC ([facility]) carvedilol (COREG) 12.5 mg, Oral, 2 times [...] Daily Magnesium 400 MG capsule Pt taking OTC([facility]) Melatonin 12 MG tablet 1 tablet, Oral, Nightly Multiple Vitamins-Minerals (BARIATRIC MULTIVITAMINS/IRON PO) Pt taking OTC ([facility]) nystatin (Mycostatin) [id number] UNIT/GM powder 1 application , Topical, 2 [...] Please contact me with any questions at [phone]. documented in this encounter [facility] 02-16-2024 History of Present illness Narrative Pt [...] biotin 5 MG tablet Pt taking OTC ([facility]) Calcium Citrate-Vitamin D (CITRACAL + D PO) Pt taking OTC ([facility]) carvedilol (COREG) 12.5 mg, Oral, 2 times [...] Daily Magnesium 400 MG capsule Pt taking OTC([facility]) Melatonin 12 MG tablet 1 tablet, Oral, Nightly Multiple Vitamins-Minerals (BARIATRIC MULTIVITAMINS/IRON PO) Pt taking OTC ([facility]) nystatin (Mycostatin) 171626 UNIT/GM powder 1 application , Topical, 2 [...] 05/18/2023 Bipolar disorder with severe depression ([facility]) 05/18/2023 Brain lesion Brain vascular malformation Chronic pain disorder Closed fracture of patella 02/04/2018 Colon polyps Constipation Degenerative cervical disc Degenerative lumbar disc Depression ([facility]) 05/18/2023 Diastolic dysfunction Dizziness 05/18/2023 Dysphagia Fibromyalgia Fibromyalgia Gastrocnemius equinus GERD (gastroesophageal reflux disease) Heart murmur Hematoma of right breast Hemiparesis ([facility]) Hemiparesis, right ([facility]) Hemorrhoid int/external hemorrhoids Hiatal hernia Iron deficiency Left foot pain 03/25/2023 Lower extremity edema Mood disorder ([facility]) mixed mood disorder OSMANY (obstructive sleep apnea) Osteoporosis ([facility]) Overactive bladder Pre-diabetes Primary hypertension ([facility]) 03/25/2023 PTSD (post-traumatic stress disorder) ([facility]) Restless leg Right knee pain Right sided weakness S/P bariatric surgery Shingles Slurred speech Stroke ([facility]) 2018 Tenosynovitis, de Quervain [...] nursing note reviewed. Exam conducted with a bag machine operator present. Constitutional: General: She is [...] chronic conditions allow documented in this encounter [facility] 01-28-2024 History of Present illness Narrative Associated [...] ER fu for UTI and dehydration. See [facility] for HPI Was sent home on Bactrim. Feels completely fine now, no fever, chills, malodorous urine, no constipation diarrhea or abd pain SUBJECTIVE: MEDICATIONS: Current Outpatient Medications Medication Instructions amLODIPine (NORVASC) 10 mg, Oral, Daily biotin 5 MG tablet Pt taking OTC ([facility]) Calcium Citrate-Vitamin D (CITRACAL + D PO) Pt taking OTC ([facility]) carvedilol (COREG) 12.5 mg, Oral, 2 times [...] Daily Magnesium 400 MG capsule Pt taking OTC([facility]) Melatonin 12 MG tablet 1 tablet, Oral, Nightly Multiple Vitamins-Minerals (BARIATRIC MULTIVITAMINS/IRON PO) Pt taking OTC ([facility]) nystatin (Mycostatin) [id number] UNIT/GM powder 1 application , Topical, 2 [...] cervical disc Degenerative lumbar disc Depression ([facility]) 05/18/2023 Diastolic dysfunction Dizziness 05/18/2023 Dysphagia Fibromyalgia Fibromyalgia Gastrocnemius equinus GERD (gastroesophageal reflux disease) Heart murmur Hematoma of right breast Hemiparesis ([facility]) Hemiparesis, right ([facility]) Hemorrhoid int/external hemorrhoids Hiatal hernia Iron deficiency Left foot pain 03/25/2023 Lower extremity edema Mood disorder ([facility]) mixed mood disorder OSMANY (obstructive sleep apnea) Osteoporosis ([facility]) Overactive bladder Pre-diabetes Primary hypertension ([facility]) 03/25/2023 PTSD (post-traumatic stress disorder) ([facility]) Restless leg Right knee pain Right sided weakness S/P bariatric surgery Shingles Slurred speech Stroke ([facility]) 2018 Tenosynovitis, de Quervain [...] Relevant Orders Flu vaccine, MDCK, quadrivalent, PF ([id number]) (Flucelvax single dose syringe) Associated Problem(s): Tobacco [...] start this process documented in this encounter [facility] 01-04-2024 History of Present illness Narrative Associated [...] biotin 5 MG tablet Pt taking OTC ([facility]) Calcium Citrate-Vitamin D (CITRACAL + D PO) Pt taking OTC ([facility]) carvedilol (COREG) 12.5 mg, Oral, 2 times [...] Daily Magnesium 400 MG capsule Pt taking [facility]) Melatonin 12 MG tablet 1 tablet, Oral, Nightly Multiple Vitamins-Minerals (BARIATRIC MULTIVITAMINS/IRON PO) Pt taking OTC ([facility]) nystatin (Mycostatin) [id number] UNIT/GM powder 1 application , Topical, 2 [...] 05/18/2023 Bipolar disorder with severe depression ([facility]) 05/18/2023 Brain lesion Brain vascular malformation Chronic pain disorder Closed fracture of patella 02/04/2018 Colon polyps Constipation Degenerative cervical disc Degenerative lumbar disc Depression ([facility]) 05/18/2023 Diastolic dysfunction Dizziness 05/18/2023 Dysphagia Fibromyalgia Fibromyalgia Gastrocnemius equinus GERD (gastroesophageal reflux disease) Heart murmur Hematoma of right breast Hemiparesis ([facility]) Hemiparesis, right ([facility]) Hemorrhoid int/external hemorrhoids Hiatal hernia Iron deficiency Left foot pain 03/25/2023 Lower extremity edema Mood disorder ([facility]) mixed mood disorder OSMANY (obstructive sleep apnea) Osteoporosis ([facility]) Overactive bladder Pre-diabetes Primary hypertension ([facility]) 03/25/2023 PTSD (post-traumatic stress disorder) ([facility]) Restless leg Right knee pain Right sided weakness S/P bariatric surgery Shingles Slurred speech Stroke ([facility]) 2018 Tenosynovitis, de Quervain [...] MCG/ACT nasal spray documented in this encounter [facility] 12-09-2023 History of Present illness Narrative Images [...] machine. She is normally seen at the [facility] and was last seen on [...] cervical disc Degenerative lumbar disc Depression ([facility]) 05/18/2023 Diastolic dysfunction Dizziness 05/18/2023 Dysphagia Fibromyalgia Fibromyalgia Gastrocnemius equinus GERD (gastroesophageal reflux disease) Heart murmur Hematoma of right breast Hemiparesis ([facility]) Hemiparesis, right ([facility]) Hemorrhoid int/external hemorrhoids Hiatal hernia Iron deficiency Left foot pain 03/25/2023 Lower extremity edema Mood disorder ([facility]) mixed mood disorder OSMANY (obstructive sleep apnea) Osteoporosis ([facility]) Overactive bladder Pre-diabetes Primary hypertension ([facility]) 03/25/2023 PTSD (post-traumatic stress disorder) ([facility]) Restless leg Right knee pain Right sided weakness S/P bariatric surgery Shingles Slurred speech Stroke ([facility]) 2018 Tenosynovitis, de Quervain [...] melatonin. She was last seen in the [facility] on June 24, 2023. Since [...] for short term insomnia and not for director long term care insomnia. She is compliant on her download [...] clinic: one year documented in this encounter [facility] 12-08-2023 History of Present illness Narrative Patient [...] 05/18/2023 Bipolar disorder with severe depression ([facility]) 05/18/2023 Brain lesion Brain vascular malformation Chronic pain disorder Closed fracture of patella 02/04/2018 Colon polyps Constipation Degenerative cervical disc Degenerative lumbar disc Depression ([facility]) 05/18/2023 Diastolic dysfunction Dizziness 05/18/2023 Dysphagia Fibromyalgia Fibromyalgia Gastrocnemius equinus GERD (gastroesophageal reflux disease) Heart murmur Hematoma of right breast Hemiparesis ([facility]) Hemiparesis, right ([facility]) Hemorrhoid int/external hemorrhoids Hiatal hernia Iron deficiency Left foot pain 03/25/2023 Lower extremity edema Mood disorder ([facility]) mixed mood disorder OSMANY (obstructive sleep apnea) Osteoporosis ([facility]) Overactive bladder Pre-diabetes Primary hypertension ([facility]) 03/25/2023 PTSD (post-traumatic stress disorder) ([facility]) Restless leg Right knee pain Right sided weakness S/P bariatric surgery Shingles Slurred speech Stroke ([facility]) 2018 Tenosynovitis, de Quervain [...] Review Audit Reviewed by Festus Baron MA (Director Of Safety And Security) on 12/08/23 at 1525 Medication Order Taking? Sig Documenting Provider Last Dose Status amLODIPine (Norvasc) 10 MG tablet [id number] Take 1 tablet (10 mg) by mouth Daily Adelaida Carrion NP Active biotin 5 MG tablet [id number] Pt taking OTC ([facility]) Historical ProviderMD Active Calcium Citrate-Vitamin D (CITRACAL + D PO) [id number] Pt taking OTC ([facility]) Historical ProviderMD Active Cariprazine HCl (Vraylar) 4.5 MG capsule [id number] Take 4.5 mg by mouth Daily Active carvedilol (Coreg) 12.5 MG tablet [id number] Take 1 tablet (12.5 mg) by mouth in the morning and 1 tablet (12.5 mg) in the evening. Take with meals. Adelaida Carrion NP Active cetirizine (ZyrTEC) 10 MG tablet [id number] Take 1 tablet (10 mg) by mouth Daily Adelaida Carrion NP Active clonazePAM (KlonoPIN) 1 MG tablet [id number] Take 1 tablet (1 mg) by mouth 2 (two) times a day as needed for anxiety Do not start before October 16, 2023. Angle Brown NP 11/15/23 235 DULoxetine (Cymbalta) [address] capsule [id number] Take 60 mg by mouth in the morning and 60 mg before bedtime. Do not crush or chew.. Active fluconazole (Diflucan) 150 MG tablet [id number] 1 pill every 3 days for a total of 3 doses Adelaida Carrion NP Active fluticasone (Flonase) 50 MCG/ACT nasal spray [id number] Administer 2 sprays into each nostril Daily Adelaida Carrion NP 11/04/23 235 gabapentin (Neurontin) 300 MG capsule [id number] Take 1 capsule (300 mg) by mouth in the morning and 1 capsule (300 mg) before bedtime. Angle Brown NP Active losartan (Cozaar) 100 MG tablet [id number] Take 1 tablet (100 mg) by mouth Daily Adelaida Carrion NP Active Magnesium 400 MG capsule [id number] Pt taking OTC([facility]) Historical ProviderMD Active Melatonin 12 MG tablet [id number] Take 1 tablet by mouth at bedtime Active Multiple Vitamins-Minerals (BARIATRIC MULTIVITAMINS/IRON PO) [id number] Pt taking OTC ([facility]) Historical Provider, Active nystatin (Mycostatin) 940930 UNIT/GM powder [id number] Apply 1 application topically in the morning and 1 application before bedtime. Adelaida Carrion NP Active omeprazole (PriLOSEC) [address] capsule [id number] Take 1 capsule (20 mg) by mouth in the morning. Take before meals. Adelaida Carrion NP Active rOPINIRole (Requip) 4 MG tablet [id number] Take 1 tablet (4 mg) by mouth at bedtime Angle Brown NP Active spironolactone (Aldactone) 25 MG tablet [id number] Take 2 tablets (50 mg) by mouth Daily Adelaida Carrion NP Active tiZANidine (Zanaflex) 2 MG tablet [id number] Take 2 mg by mouth every 8 (eight) hours Adelaida Carrion NP Active traZODone (Desyrel) 150 MG tablet [id number] Take 150 mg by mouth at bedtime Active HPI AMS -Patient was admitted to [facility] from the [facility] on 08/24/2023 with acute respiratory failure and confusion thought to be secondary to metabolic encephalopathy. Patient denies any new hospital stays. -She was seen by Neurology who thought she had a toxic encephalopathy secondary to medication overuse. -She was monitored on LTME which did not show any evidence of seizures. -After she was discharged she had a short stay at the half-way facility on 09/03/2023 and she was discharged [...] ankle and great toe bilaterally. Coordination Right: [id number] normal. Rapid alternating movement normal.Left: Xkprmy-[id number] normal. Rapid alternating movement normal. Gait Casual gait is normal including stance, stride, and arm swing. Motor Examination RUE Strength deltoid, biceps, triceps, wrist extensors, wrist extensors, wrist flexor, slab miller operator strength 5/5. LUE Strength deltoid, biceps, triceps, wrist extensors, wrist extensors, wrist flexor, slab miller operator strength 5/5. RLE Strength illopsoas, quadriceps, [...] not all inclusive. Patient was admitted to [facility] from the [facility] on 08/24/2023 with acute respiratory [...] of the brain in July 2019 showed [id number] white matter changes with the largest area [...] make further recommendations documented in this encounter [facility] 05-18-2023 History of Present illness Narrative Associated [...] (BARIATRIC MULTIVITAMINS/IRON PO) Bariatric Multivitamins/Iron nystatin (Mycostatin) 145791 UNIT/GM powder 1 application , Topical, 2 [...] 05/18/2023 Bipolar disorder with severe depression ([facility]) 05/18/2023 Brain vascular malformation Chronic pain disorder Colon polyps Constipation Degenerative cervical disc Degenerative lumbar disc Depression ([facility]) 05/18/2023 Diastolic dysfunction Dizziness 05/18/2023 Dysphagia Fibromyalgia Gastrocnemius equinus GERD (gastroesophageal reflux disease) Heart murmur Hematoma of right breast Hemiparesis, right [facility] [place]) Hemorrhoid int/external hemorrhoids Hiatal hernia Iron deficiency Left foot pain 03/25/2023 Lower extremity edema Mood disorder ([facility]) mixed mood disorder OSMANY (obstructive sleep apnea) Osteoporosis ([facility]) Overactive bladder Pre-diabetes Primary hypertension ([facility]) 03/25/2023 PTSD (post-traumatic stress disorder) ([facility]) Restless leg Right knee pain Right sided weakness S/P bariatric surgery Shingles Slurred speech Stroke ([facility]) 2018 Tenosynovitis, de Quervain [...] yearly and prn documented in this encounter [facility] 03-23-2023 Procedure note [facility] 12-19-2022 Evaluation note Encounter Date Diagnosis Assessment Notes Dec, Skin candidiasis (ICD-10 - B37.2) Drink plenty fluids, get plenty of rest. Continue home medications as prescribed. Take the Diflucan as prescribed until gone. Follow-up with your family physician if no improvement in 2 to 3 days [employer] Other 08-17-2023 Discharge summary Author Eduardo barrett [facility] November 20, 2022 6:38am Note Date/Time November 20, 2022 6: 38am [facility] [address] [place] [address] Discharge Summary Signed Patient: Michelle Be MR#: [id number] : 1960 Acct:[id number] Age/Sex: 61 / F Adm Date: 3 Loc: 1S Room: [address] [place] [address]: Gaudencio Monk MD Copies to: [...] time.? She reports moving to [place] from [place] in 2011 and was then diagnosed with bipolar disorder at [facility] in [place], where she still follows with a therapist.? Shereports that she has been with 7 therapists in the last 9 years and is currentlycompleting EMDR with her current therapist. Past hospitalizations: Her most recent hospitalization was 5 years ago [facility] in [place] for the same feeling she is experiencing [...] fibromyalgia.? [facility]. 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 (insert date/time [...] Monk MD> 11/20/22 0638 [facility] Work Phone: 1(925) 392-785708-16-2023 Progress note Author Eduardo barrett [facility] November 19, 2022 6:25am Note Date/Time November 19, 2022 6: 25am [facility] [address] [place] [address] Psychiatry Progress Note Signed Patient: Michelle Be MR#: [id number] : 1960 Acct:[id number] Age/Sex: 61 / F Adm Date: 3 Loc: Room: [address] [place] [address] Type : ADM IN Attending Dr: Gaudencio [...] signed by Eduardo Monk MD> 11/19/22 0625 [facility] Work Phone: 1(318) 776-330308-15-2023 Progress note Author Eduardo barrett [facility] November 18, 2022 11:01am Note Date/Time November 18, 2022 10 :11am [facility] [address] [place] [address] Psychiatry Progress Note Signed Patient: Michelle Be MR#: [id number] : 1960 Acct:[id number] Age/Sex: 61 / F Adm Date: 3 Loc: Room: [address] [place] [address] Type : ADM IN Attending Dr: Gaudencio [...] signed by MD DA Rangel> 11/18/22 1011 [facility] Work Phone: 1(432) 166-346408-14-2023 History and physical note Author Eduardo barrett [facility] November 17, 2022 12:48pm Note Date/Time November 17, 2022 12 :48pm [facility] [address] [place] [address] Psychiatry H&P Signed Patient: Michelle Be MR#: [id number] : 1960 Acct:[id number] Age/Sex: 61 / F Adm Date: 3 Loc: Room: [address] [place] [address] Type: ADM IN Attending Dr: Gaudencio Monk [...] time. She reports moving to [place] from [place] in 2011 and was then diagnosed with bipolar disorder at [facility] in [place], where she still follows with a therapist. Shereports that she has been with 7 therapists in the last 9 years and is currentlycompleting EMDR with her current therapist. Past hospitalizations: Her most recent hospitalization was 5 years ago [facility] in [place] for the same feeling she is experiencing [...] worked since 2010 due to her fibromyalgia. [facility]. Relationships: Reports having people [...] CN XII: Tongue protrusion midline [facility] Medical History (Updated 11/17/22 @ 10:42 [...] signed by Eduardo Monk MD> 11/17/22 1248 [facility] Work Phone: 1(392) 653-891203-23-2023 NoteCONSULTATION CONSULTATION DATE: 06/26/2022 To: Nurse Carrion [...] L5-S1 facet joint injection under fluoroscopic guidance.[facility] [id number] NotePROCEDURE: XR SHOULDER RT 2V or > [...] Electronically authenticated by: KINGSLEY CLEMENTS Date: 2022-05-09 09:21[facility]01-23-2023 NotePROCEDURE: XR WRIST [...] for patient's symptoms. Electronically authenticated by: KINGSLEY CELMENTS Date: 2022-04-28 13:31[facility]12-29-2022 NoteCONSULTATION CONSULTATION DATE: [...] her in three months, unless otherwise indicated.[facility] [id number] NoteCONSULTATION CONSULTATION DATE: 01/02/2022 This is a [...] was sent by Dr. Macedo to [facility] in [place] for the compounded cream. She needs a [...] in three months' time unless otherwise indicated.[facility] [id number] NotePROCEDURE: XR ANKLE RT MIN 3 VIEWS, [...] Electronically authenticated by: KINGSLEY CLEMENTS Date: 2022-01-01 13:11[facility]09-28-2022 NotePROCEDURE: XR ANKLE [...] Electronically authenticated by: KINGSLEY CLEMENTS Date: 2022-01-01 13:11[facility]08-18-2022 NotePROCEDURE: XR FOOT RT MIN 3 VIEWS HISTORY: Pain in right foot , chronic COMPARISON: XR foot right 2020 FINDINGS: BONES:No fracture, dislocation, bone lesion. Small calcaneal degenerative enthesophytes. SOFT TISSUES:No visible soft tissue swelling. EFFUSION:None visible. OTHER: Negative. IMPRESSION: 1. No acute bone abnormality or significant degenerative joint disease. Electronically authenticated by: KINGSLEY CLEMENTS Date: 2021-11-21 16:13[facility]06-30-2022 NoteCONSULTATION CONSULTATION DATE: [...] patient agrees with the plan of care. [facility] Signed and Approved by: ZELDA MCDANIEL . 10/10/2021 10:22:00[facility] Diagnosis Onset Date Resolution Status Allergies acute Bipolar 2 disorder acute Hypertension acute Morbid obesity with BMI of 45.0-49.9, adult acute OSMANY (obstructive sleep apnea) acute Restless legs syndrome acute [facility] Work Phone: Evaluation noteNo InformationNortIkaria Other Evaluation noteNo assessment information available [facility] Work Phone: Evaluation note* Diagnosis Encounter for annual wellness visit (AWV) in Medicare patient- Primary OSMANY (obstructive sleep apnea) Obstructive sleep apnea (adult) (pediatric) Chronic pain disorder Chronic pain syndrome Gastroesophageal reflux disease, unspecified whether esophagitis present Overactive bladder Hypertonicity of bladder Lower extremity edema Edema Pre-diabetes Other abnormal glucose Morbid obesity ([facility]) Morbid obesity Yeast infection of the skin Candidiasis of skin and nails Tobacco dependence Tobacco use disorder Mood disorder ([facility]) Unspecified episodic mood disorder Primary hypertension ([facility]) Unspecified essential hypertension Left hip pain Pain in joint, pelvic region and thigh Open wound of anterior abdominal wall, initial encounter documented in this encounter [facility]* Diagnosis Acute cystitis with hematuria- Primary documented in this encounter [facility] HealthcareEvaluation note* Diagnosis Left foot pain- Primary Pain in soft tissues of limb Primary hypertension ([facility]) Unspecified essential hypertension Class 3 severe obesity due to excess calories without serious comorbidity with body mass index (BMI) of 45.0 to 49.9 in adult ([facility]) Encounter for annual wellness visit (AWV) in Medicare patient- Primary OSMANY (obstructive sleep apnea) Obstructive sleep apnea (adult) (pediatric) Chronic pain disorder Chronic pain syndrome Gastroesophageal reflux disease, unspecified whether esophagitis present Overactive bladder Hypertonicity of bladder Lower extremity edema Edema Pre-diabetes Other abnormal glucose Morbid obesity ([facility]) Morbid obesity Yeast infection of the skin Candidiasis of skin and nails Tobacco dependence Tobacco use disorder Mood disorder ([facility]) Unspecified episodic mood disorder Primary hypertension ([facility]) Unspecified essential hypertension Left hip pain Pain in joint, pelvic region and thigh Open wound of anterior abdominal wall, initial encounter Primary hypertension ([facility])- Primary Unspecified essential hypertension Yeast infection of the skin Candidiasis of skin and nails Morbid obesity ([facility]) Morbid obesity Primary hypertension ([facility])- Primary Unspecified essential hypertension Encounter for screening mammogram for malignant neoplasm of breast Gastroesophageal reflux disease, unspecified whether esophagitis present Acute gout of right foot, unspecified cause Osteoporosis, unspecified osteoporosis type, unspecified pathological fracture presence ([facility]) Morbid obesity ([facility]) Morbid obesity Pre-diabetes Other abnormal glucose Anemia, unspecified type Vitamin deficiency Unspecified vitamin deficiency Post-viral cough syndrome Primary hypertension ([facility])- Primary Unspecified essential hypertension Allergic rhinitis, unspecified Acute cough Morbid obesity ([facility]) Morbid obesity Former cigarette smoker Personal history of tobacco use, presenting hazards to health Toxic metabolic encephalopathy- Primary Hemiparesis, right ([facility]) Unspecified hemiplegia affecting unspecified side Acute respiratory failure with hypoxia ([facility]) Heart murmur Undiagnosed cardiac murmurs Primary hypertension ([facility] Unspecified essential hypertension Morbid obesity ([facility]) Morbid obesity Bipolar disorder with severe depression ([facility]) Slurred speech Other speech disturbance Bilateral lower extremity edema- Primary Primary hypertension ([facility]) Unspecified essential hypertension Lower extremity edema Edema Essential (primary) hypertension ([facility]) Unspecified essential hypertension Gastro-esophageal reflux disease without esophagitis Allergic rhinitis, unspecified Bilateral lower extremity edema- Primary Morbid (severe) obesity due to excess calories ([facility]) Body mass index (BMI) 45.0-49.9, adult ([facility]) Pre-diabetes Other abnormal glucose Bilateral lower extremity edema- Primary Essential (primary) hypertension ([facility]) Unspecified essential hypertension Allergic rhinitis, unspecified OSMANY (obstructive sleep apnea) Obstructive sleep apnea (adult) (pediatric) Primary hypertension (CMS/HCC) Unspecified essential hypertension Morbid obesity (CMS/HCC) Morbid obesity Acute cystitis without hematuria- Primary Tobacco dependence Tobacco use disorder Needs flu shot Need for prophylactic vaccination and inoculation against influenza Morbid obesity ([facility]) Morbid obesity documented in this encounter [facility] HealthcareEvaluation note* Diagnosis Left foot pain- Primary Pain in soft tissues of limb Primary hypertension ([facility]) Unspecified essential hypertension Class 3 severe obesity due to excess calories without serious comorbidity with body mass index (BMI) of 45.0 to 49.9 in adult ([facility]) Encounter for annual wellness visit (AWV) [...] Tobacco dependence Tobacco use disorder Mood disorder ([facility]) Unspecified episodic mood disorder Primary hypertension ([facility]) Unspecified essential hypertension Left hip pain Pain in joint, pelvic region and thigh Open wound of anterior abdominal wall, initial encounter Primary hypertension ([facility])- Primary Unspecified essential hypertension Yeast infection of the skin Candidiasis of skin and nails Morbid obesity ([facility]) Morbid obesity Primary hypertension ([facility])- Primary Unspecified essential hypertension Encounter for screening mammogram for malignant neoplasm of breast Gastroesophageal reflux disease, unspecified whether esophagitis present Acute gout of right foot, unspecified cause Osteoporosis, unspecified osteoporosis type, unspecified pathological fracture presence ([facility]) Morbid obesity ([facility]) Morbid obesity Pre-diabetes Other abnormal glucose Anemia, unspecified type Vitamin deficiency Unspecified vitamin deficiency Post-viral cough syndrome Primary hypertension (CMS/HCC)- Primary Unspecified essential hypertension Allergic rhinitis, unspecified Acute cough Morbid obesity ([facility]) Morbid obesity Former cigarette smoker Personal history of tobacco use, presenting hazards to health Toxic metabolic encephalopathy- Primary Hemiparesis, right ([facility]) Unspecified hemiplegia affecting unspecified side Acute respiratory failure with hypoxia ([facility]) Heart murmur Undiagnosed cardiac murmurs Primary hypertension ([facility]) Unspecified essential hypertension Morbid obesity ([facility]) Morbid obesity Bipolar disorder with severe depression ([facility]) Slurred speech Other speech disturbance Bilateral lower extremity edema- Primary Primary hypertension (CMS/HCC) Unspecified essential hypertension Lower extremity edema Edema Essential (primary) hypertension ([facility]) Unspecified essential hypertension Gastro-esophageal reflux disease without esophagitis Allergic rhinitis, unspecified Bilateral lower extremity edema- Primary Morbid (severe) obesity due to excess calories ([facility]) Body mass index (BMI) 45.0-49.9, adult ([facility]) Pre-diabetes Other abnormal glucose Bilateral lower extremity edema- Primary Essential (primary) hypertension ([facility]) Unspecified essential hypertension Allergic rhinitis, unspecified OSMANY (obstructive sleep apnea) Obstructive sleep apnea (adult) (pediatric) Primary hypertension ([facility]) Unspecified essential hypertension Morbid obesity ([facility]) Morbid obesity Acute cystitis without hematuria- Primary Tobacco dependence Tobacco use disorder Needs flu shot Need for prophylactic vaccination and inoculation against influenza Morbid obesity ([facility]) Morbid obesity Restless leg Restless legs syndrome (RLS) documented in this encounter [facility] HealthcareEvaluation note* Diagnosis Left foot pain- Primary Pain in soft tissues of limb Primary hypertension ([facility]) Unspecified essential hypertension Class 3 severe obesity due to excess calories without serious comorbidity with body mass index (BMI) of 45.0 to 49.9 in adult ([facility]) Encounter for annual wellness visit (AWV) in Medicare patient- Primary OSMANY (obstructive sleep apnea) Obstructive sleep apnea (adult) (pediatric) Chronic pain disorder Chronic pain syndrome Gastroesophageal reflux disease, unspecified whether esophagitis present Overactive bladder Hypertonicity of bladder Lower extremity edema Edema Pre-diabetes Other abnormal glucose Morbid obesity ([facility]) Morbid obesity Yeast infection of the skin Candidiasis of skin and nails Tobacco dependence Tobacco use disorder Mood disorder ([facility]) Unspecified episodic mood disorder Primary hypertension ([facility]) Unspecified essential hypertension Left hip pain Pain in joint, pelvic region and thigh Open wound of anterior abdominal wall, initial encounter Primary hypertension ([facility])- Primary Unspecified essential hypertension Yeast infection of the skin Candidiasis of skin and nails Morbid obesity ([facility]) Morbid obesity Primary hypertension ([facility])- Primary Unspecified essential hypertension Encounter for screening mammogram for malignant neoplasm of breast Gastroesophageal reflux disease, unspecified whether esophagitis present Acute gout of right foot, unspecified cause Osteoporosis, unspecified osteoporosis type, unspecified pathological fracture presence ([facility]) Morbid obesity ([facility]) Morbid obesity Pre-diabetes Other abnormal glucose Anemia, unspecified type Vitamin deficiency Unspecified vitamin deficiency Post-viral cough syndrome Primary hypertension ([facility])- Primary Unspecified essential hypertension Allergic rhinitis, unspecified Acute cough Morbid obesity ([facility]) Morbid obesity Former cigarette smoker Personal history of tobacco use, presenting hazards to health Toxic metabolic encephalopathy- Primary Hemiparesis, right ([facility]) Unspecified hemiplegia affecting unspecified side Acute respiratory failure with hypoxia ([facility]) Heart murmur Undiagnosed cardiac murmurs Primary hypertension ([facility] Unspecified essential hypertension Morbid obesity ([facility]) Morbid obesity Bipolar disorder with severe depression ([facility]) Slurred speech Other speech disturbance Bilateral lower extremity edema- Primary Primary hypertension ([facility]) Unspecified essential hypertension Lower extremity edema Edema Essential (primary) hypertension ([facility]) Unspecified essential hypertension Gastro-esophageal reflux disease without esophagitis Allergic rhinitis, unspecified Bilateral lower extremity edema- Primary Morbid (severe) obesity due to excess calories ([facility]) Body mass index (BMI) 45.0-49.9, adult ([facility]) Pre-diabetes Other abnormal glucose Bilateral lower extremity edema- Primary Essential (primary) hypertension ([facility]) Unspecified essential hypertension Allergic rhinitis, unspecified OSMANY (obstructive sleep apnea) Obstructive sleep apnea (adult) (pediatric) Primary hypertension ([facility]) Unspecified essential hypertension Morbid obesity ([facility]) Morbid obesity Acute cystitis without hematuria- Primary Tobacco dependence Tobacco use disorder Needs flu shot Need for prophylactic vaccination and inoculation against influenza Morbid obesity ([facility]) Morbid obesity Well woman exam with routine gynecological exam- Primary Routine gynecological examination Morbid obesity ([facility]) Morbid obesity documented in this encounter [facility] HealthcareEvaluation note* Diagnosis Left foot pain- Primary Pain in soft tissues of limb Primary hypertension ([facility]) Unspecified essential hypertension Class 3 severe obesity due to excess calories without serious comorbidity with body mass index (BMI) of 45.0 to 49.9 in adult ([facility]) Encounter for annual wellness visit (AWV) in Medicare patient- Primary OSMANY (obstructive sleep apnea) Obstructive sleep apnea (adult) (pediatric) Chronic pain disorder Chronic pain syndrome Gastroesophageal reflux disease, unspecified whether esophagitis present Overactive bladder Hypertonicity of bladder Lower extremity edema Edema Pre-diabetes Other abnormal glucose Morbid obesity ([facility]) Morbid obesity Yeast infection of the skin Candidiasis of skin and nails Tobacco dependence Tobacco use disorder Mood disorder ([facility]) Unspecified episodic mood disorder Primary hypertension ([facility]) Unspecified essential hypertension Left hip pain Pain in joint, pelvic region and thigh Open wound of anterior abdominal wall, initial encounter Primary hypertension ([facility] [place] [facility])- Primary Unspecified essential hypertension Yeast infection of the skin Candidiasis of skin and nails Morbid obesity ([facility]) Morbid obesity Primary hypertension ([facility])- Primary Unspecified essential hypertension Encounter for screening mammogram for malignant neoplasm of breast Gastroesophageal reflux disease, unspecified whether esophagitis present Acute gout of right foot, unspecified cause Osteoporosis, unspecified osteoporosis type, unspecified pathological fracture presence ([facility]) Morbid obesity ([facility]) Morbid obesity Pre-diabetes Other abnormal glucose Anemia, unspecified type Vitamin deficiency Unspecified vitamin deficiency Post-viral cough syndrome Primary hypertension ([facility])- Primary Unspecified essential hypertension Allergic rhinitis, unspecified Acute cough Morbid obesity ([facility]) Morbid obesity Former cigarette smoker Personal history of tobacco use, presenting hazards to health Toxic metabolic encephalopathy- Primary Hemiparesis, right ([facility]) Unspecified hemiplegia affecting unspecified side Acute respiratory failure with hypoxia ([facility]) Heart murmur Undiagnosed cardiac murmurs Primary hypertension ([facility]) Unspecified essential hypertension Morbid obesity ([facility]) Morbid obesity Bipolar disorder with severe depression ([facility]) Slurred speech Other speech disturbance Bilateral lower extremity edema- Primary Primary hypertension ([facility]) Unspecified essential hypertension Lower extremity edema Edema Essential (primary) hypertension ([facility]) Unspecified essential hypertension Gastro-esophageal reflux disease without esophagitis Allergic rhinitis, unspecified Bilateral lower extremity edema- Primary Morbid (severe) obesity due to excess calories ([facility]) Body mass index (BMI) 45.0-49.9, adult ([facility]) Pre-diabetes Other abnormal glucose Bilateral lower extremity edema- Primary Essential (primary) hypertension ([facility]) Unspecified essential hypertension Allergic rhinitis, unspecified OSMANY (obstructive sleep apnea) Obstructive sleep apnea (adult) (pediatric) Primary hypertension ([facility]) Unspecified essential hypertension Morbid obesity ([facility]) Morbid obesity Acute cystitis without hematuria- Primary Tobacco dependence Tobacco use disorder Needs flu shot Need for prophylactic vaccination and inoculation against influenza Morbid obesity (CMS/HCC) Morbid obesity Well woman exam with routine gynecological exam- Primary Routine gynecological examination Morbid obesity ([facility]) Morbid obesity Essential (primary) hypertension ([facility]) Unspecified essential hypertension Allergic rhinitis, unspecified documented in this encounter [facility] HealthcareEvaluation note* Diagnosis Left foot pain- Primary Pain in soft tissues of limb Primary hypertension ([facility]) Unspecified essential hypertension Class 3 severe obesity due to excess calories without serious comorbidity with body mass index (BMI) of 45.0 to 49.9 in adult ([facility]) Encounter for annual wellness visit (AWV) in Medicare patient- Primary OSMANY (obstructive sleep apnea) Obstructive sleep apnea (adult) (pediatric) Chronic pain disorder Chronic pain syndrome Gastroesophageal reflux disease, unspecified whether esophagitis present Overactive bladder Hypertonicity of bladder Lower extremity edema Edema Pre-diabetes Other abnormal glucose Morbid obesity ([facility]) Morbid obesity Yeast infection of the skin Candidiasis of skin and nails Tobacco dependence Tobacco use disorder Mood disorder ([facility]) Unspecified episodic mood disorder Primary hypertension ([facility]) Unspecified essential hypertension Left hip pain Pain in joint, pelvic region and thigh Open wound of anterior abdominal wall, initial encounter Primary hypertension ([facility])- Primary Unspecified essential hypertension Yeast infection of the skin Candidiasis of skin and nails Morbid obesity ([facility]) Morbid obesity Primary hypertension ([facility])- Primary Unspecified essential hypertension Encounter for screening mammogram for malignant neoplasm of breast Gastroesophageal reflux disease, unspecified whether esophagitis present Acute gout of right foot, unspecified cause Osteoporosis, unspecified osteoporosis type, unspecified pathological fracture presence ([facility]) Morbid obesity ([facility]) Morbid obesity Pre-diabetes Other abnormal glucose Anemia, unspecified type Vitamin deficiency Unspecified vitamin deficiency Post-viral cough syndrome Primary hypertension ([facility])- Primary Unspecified essential hypertension Allergic rhinitis, unspecified Acute cough Morbid obesity ([facility]) Morbid obesity Former cigarette smoker Personal history of tobacco use, presenting hazards to health Toxic metabolic encephalopathy- Primary Hemiparesis, right ([facility]) Unspecified hemiplegia affecting unspecified side Acute respiratory failure with hypoxia ([facility]) Heart murmur Undiagnosed cardiac murmurs Primary hypertension ([facility] Unspecified essential hypertension Morbid obesity ([facility]) Morbid obesity Bipolar disorder with severe depression ([facility]) Slurred speech Other speech disturbance Bilateral lower extremity edema- Primary Primary hypertension ([facility]) Unspecified essential hypertension Lower extremity edema Edema Essential (primary) hypertension ([facility]) Unspecified essential hypertension Gastro-esophageal reflux disease without esophagitis Allergic rhinitis, unspecified Bilateral lower extremity edema- Primary Morbid (severe) obesity due to excess calories ([facility]) Body mass index (BMI) 45.0-49.9, adult ([facility]) Pre-diabetes Other abnormal glucose Bilateral lower extremity edema- Primary Essential (primary) hypertension ([facility]) Unspecified essential hypertension Allergic rhinitis, unspecified OSMANY (obstructive sleep apnea) Obstructive sleep apnea (adult) (pediatric) Primary hypertension ([facility]) Unspecified essential hypertension Morbid obesity ([facility]) Morbid obesity Acute cystitis without hematuria- Primary Tobacco dependence Tobacco use disorder Needs flu shot Need for prophylactic vaccination and inoculation against influenza Morbid obesity (CMS/HCC) Morbid obesity Well woman exam with routine gynecological exam- Primary Routine gynecological examination Morbid obesity ([facility]) Morbid obesity Allergic rhinitis, unspecified documented in this encounter [facility] HealthcareEvaluation note* Diagnosis Left foot pain- Primary Pain in soft tissues of limb Primary hypertension ([facility]) Unspecified essential hypertension Class 3 severe obesity due to excess calories without serious comorbidity with body mass index (BMI) of 45.0 to 49.9 in adult ([facility]) Encounter for annual wellness visit (AWV) in Medicare patient- Primary OSMANY (obstructive sleep apnea) Obstructive sleep apnea (adult) (pediatric) Chronic pain disorder Chronic pain syndrome Gastroesophageal reflux disease, unspecified whether esophagitis present Overactive bladder Hypertonicity of bladder Lower extremity edema Edema Pre-diabetes Other abnormal glucose Morbid obesity ([facility]) Morbid obesity Yeast infection of the skin Candidiasis of skin and nails Tobacco dependence Tobacco use disorder Mood disorder ([facility]) Unspecified episodic mood disorder Primary hypertension ([facility]) Unspecified essential hypertension Left hip pain Pain in joint, pelvic region and thigh Open wound of anterior abdominal wall, initial encounter Primary hypertension ([facility])- Primary Unspecified essential hypertension Yeast infection of the skin Candidiasis of skin and nails Morbid obesity ([facility]) Morbid obesity Primary hypertension ([facility])- Primary Unspecified essential hypertension Encounter for screening mammogram for malignant neoplasm of breast Gastroesophageal reflux disease, unspecified whether esophagitis present Acute gout of right foot, unspecified cause Osteoporosis, unspecified osteoporosis type, unspecified pathological fracture presence ([facility]) Morbid obesity ([facility]) Morbid obesity Pre-diabetes Other abnormal glucose Anemia, unspecified type Vitamin deficiency Unspecified vitamin deficiency Post-viral cough syndrome Primary hypertension ([facility])- Primary Unspecified essential hypertension Allergic rhinitis, unspecified Acute cough Morbid obesity ([facility]) Morbid obesity Former cigarette smoker Personal history of tobacco use, presenting hazards to health Toxic metabolic encephalopathy- Primary Hemiparesis, right ([facility]) Unspecified hemiplegia affecting unspecified side Acute respiratory failure with hypoxia ([facility]) Heart murmur Undiagnosed cardiac murmurs Primary hypertension ([facility]) Unspecified essential hypertension Morbid obesity ([facility]) Morbid obesity Bipolar disorder with severe depression ([facility]) Slurred speech Other speech disturbance Bilateral lower extremity edema- Primary Primary hypertension ([facility]) Unspecified essential hypertension Lower extremity edema Edema Essential (primary) hypertension ([facility]) Unspecified essential hypertension Gastro-esophageal reflux disease without esophagitis Allergic rhinitis, unspecified Bilateral lower extremity edema- Primary Morbid (severe) obesity due to excess calories ([facility]) Body mass index (BMI) 45.0-49.9, adult ([facility]) Pre-diabetes Other abnormal glucose Bilateral lower extremity edema- Primary Essential (primary) hypertension ([facility]) Unspecified essential hypertension Allergic rhinitis, unspecified OSMANY (obstructive sleep apnea) Obstructive sleep apnea (adult) (pediatric) Primary hypertension ([facility]) Unspecified essential hypertension Morbid obesity ([facility]) Morbid obesity Acute cystitis without hematuria- Primary Tobacco dependence Tobacco use disorder Needs flu shot Need for prophylactic vaccination and inoculation against influenza Morbid obesity ([facility]) Morbid obesity Well woman exam with routine gynecological exam- Primary Routine gynecological examination Morbid obesity ([facility]) Morbid obesity Yeast infection of the skin Candidiasis of skin and nails documented in this encounter [facility] HealthcareEvaluation note* Diagnosis Left foot pain- Primary Pain in soft tissues of limb Primary hypertension ([facility]) Unspecified essential hypertension Class 3 severe obesity due to excess calories without serious comorbidity with body mass index (BMI) of 45.0 to 49.9 in adult ([facility]) Encounter for annual wellness visit (AWV) in Medicare patient- Primary OSMANY (obstructive sleep apnea) Obstructive sleep apnea (adult) (pediatric) Chronic pain disorder Chronic pain syndrome Gastroesophageal reflux disease, unspecified whether esophagitis present Overactive bladder Hypertonicity of bladder Lower extremity edema Edema Pre-diabetes Other abnormal glucose Morbid obesity ([facility]) Morbid obesity Yeast infection of the skin Candidiasis of skin and nails Tobacco dependence Tobacco use disorder Mood disorder ([facility]) Unspecified episodic mood disorder Primary hypertension ([facility]) Unspecified essential hypertension Left hip pain Pain in joint, pelvic region and thigh Open wound of anterior abdominal wall, initial encounter Primary hypertension ([facility]/HCC)- Primary Unspecified essential hypertension Yeast infection of the skin Candidiasis of skin and nails Morbid obesity ([facility]) Morbid obesity Primary hypertension ([facility])- Primary Unspecified essential hypertension Encounter for screening mammogram for malignant neoplasm of breast Gastroesophageal reflux disease, unspecified whether esophagitis present Acute gout of right foot, unspecified cause Osteoporosis, unspecified osteoporosis type, unspecified pathological fracture presence ([facility]) Morbid obesity ([facility]) Morbid obesity Pre-diabetes Other abnormal glucose Anemia, unspecified type Vitamin deficiency Unspecified vitamin deficiency Post-viral cough syndrome Primary hypertension ([facility])- Primary Unspecified essential hypertension Allergic rhinitis, unspecified Acute cough Morbid obesity ([facility]) Morbid obesity Former cigarette smoker Personal history of tobacco use, presenting hazards to health Toxic metabolic encephalopathy- Primary Hemiparesis, right ([facility]) Unspecified hemiplegia affecting unspecified side Acute respiratory failure with hypoxia ([facility]) Heart murmur Undiagnosed cardiac murmurs Primary hypertension ([facility]) Unspecified essential hypertension Morbid obesity ([facility]) Morbid obesity Bipolar disorder with severe depression ([facility]) Slurred speech Other speech disturbance Bilateral lower extremity edema- Primary Primary hypertension ([facility]) Unspecified essential hypertension Lower extremity edema Edema Essential (primary) hypertension ([facility]) Unspecified essential hypertension Gastro-esophageal reflux disease without esophagitis Allergic rhinitis, unspecified Bilateral lower extremity edema- Primary Morbid (severe) obesity due to excess calories ([facility]) Body mass index (BMI) 45.0-49.9, adult ([facility]) Pre-diabetes Other abnormal glucose Bilateral lower extremity edema- Primary Essential (primary) hypertension ([facility]) Unspecified essential hypertension Allergic rhinitis, unspecified OSMANY (obstructive sleep apnea) Obstructive sleep apnea (adult) (pediatric) Primary hypertension ([facility]) Unspecified essential hypertension Morbid obesity ([facility]) Morbid obesity Acute cystitis without hematuria- Primary Tobacco dependence Tobacco use disorder Needs flu shot Need for prophylactic vaccination and inoculation against influenza Morbid obesity ([facility]/HCC) Morbid obesity Well woman exam with routine gynecological exam- Primary Routine gynecological examination Morbid obesity ([facility]/HCC) Morbid obesity Metabolic encephalopathy- Primary OSMANY (obstructive sleep apnea) Obstructive sleep apnea (adult) (pediatric) Restless leg Restless legs syndrome (RLS) 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 (CMS/HCC) Degeneration of intervertebral disc of lumbar region with discogenic back pain and lower extremity pain Memory change Memory loss documented in this encounter [facility] HealthcareEvaluation note* Diagnosis Left foot pain- Primary Pain in soft tissues of limb Primary hypertension ([facility]/HCC) Unspecified essential hypertension Class 3 severe obesity due to excess calories without serious comorbidity with body mass index (BMI) of 45.0 to 49.9 in adult ([facility]) Encounter for annual wellness visit (AWV) [...] Tobacco dependence Tobacco use disorder Mood disorder ([facility]) Unspecified episodic mood disorder Primary hypertension ([facility]) Unspecified essential hypertension Left hip pain Pain in joint, pelvic region and thigh Open wound of anterior abdominal wall, initial encounter Primary hypertension ([facility]/HCC)- Primary Unspecified essential hypertension Yeast infection of the skin Candidiasis of skin and nails Morbid obesity (CMS/[facility]) Morbid obesity Primary hypertension ([facility]/HCC)- Primary Unspecified essential hypertension Encounter for screening mammogram for malignant neoplasm of breast Gastroesophageal reflux disease, unspecified whether esophagitis present Acute gout of right foot, unspecified cause Osteoporosis, unspecified osteoporosis type, unspecified pathological fracture presence ([facility]) Morbid obesity ([facility]) Morbid obesity Pre-diabetes Other abnormal glucose Anemia, unspecified type Vitamin deficiency Unspecified vitamin deficiency Post-viral cough syndrome Primary hypertension (CMS/HCC)- Primary Unspecified essential hypertension Allergic rhinitis, unspecified Acute cough Morbid obesity ([facility]) Morbid obesity Former cigarette smoker Personal history of tobacco use, presenting hazards to health Toxic metabolic encephalopathy- Primary Hemiparesis, right (CMS/[facility]) Unspecified hemiplegia affecting unspecified side Acute respiratory failure with hypoxia (CMS/[facility]) Heart murmur Undiagnosed cardiac murmurs Primary hypertension (CMS/HCC) Unspecified essential hypertension Morbid obesity (CMS/HCC) Morbid obesity Bipolar disorder with severe depression ([facility]) Slurred speech Other speech disturbance Bilateral lower extremity edema- Primary Primary hypertension (CMS/HCC) Unspecified essential hypertension Lower extremity edema Edema Essential (primary) hypertension (CMS/[facility]) Unspecified essential hypertension Gastro-esophageal reflux disease without esophagitis Allergic rhinitis, unspecified Bilateral lower extremity edema- Primary Morbid (severe) obesity due to excess calories ([facility]) Body mass index (BMI) 45.0-49.9, adult ([facility]) Pre-diabetes Other abnormal glucose Bilateral lower extremity edema- Primary Essential (primary) hypertension ([facility]) Unspecified essential hypertension Allergic rhinitis, unspecified OSMANY (obstructive sleep apnea) Obstructive sleep apnea (adult) (pediatric) Primary hypertension ([facility]) Unspecified essential hypertension Morbid obesity ([facility]) Morbid obesity Acute cystitis without hematuria- Primary Tobacco dependence Tobacco use disorder Needs flu shot Need for prophylactic vaccination and inoculation against influenza Morbid obesity ([facility]) Morbid obesity Well woman exam with routine gynecological exam- Primary Routine gynecological examination Morbid obesity ([facility]) Morbid obesity Altered mental status, unspecified altered mental status type- Primary Restless leg Restless legs syndrome (RLS) 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[facility]) OSMANY (obstructive sleep apnea) Obstructive sleep apnea (adult) (pediatric) documented in this encounter [facility] HealthcareEvaluation note* Diagnosis Left foot pain- Primary Pain in soft tissues of limb Primary hypertension ([facility]) Unspecified essential hypertension Class 3 severe obesity due to excess calories without serious comorbidity with body mass index (BMI) of 45.0 to 49.9 in adult ([facility]) Encounter for annual wellness visit (AWV) in Medicare patient- Primary OSMANY (obstructive sleep apnea) Obstructive sleep apnea (adult) (pediatric) Chronic pain disorder Chronic pain syndrome Gastroesophageal reflux disease, unspecified whether esophagitis present Overactive bladder Hypertonicity of bladder Lower extremity edema Edema Pre-diabetes Other abnormal glucose Morbid obesity ([facility]) Morbid obesity Yeast infection of the skin Candidiasis of skin and nails Tobacco dependence Tobacco use disorder Mood disorder ([facility]) Unspecified episodic mood disorder Primary hypertension ([facility]) Unspecified essential hypertension Left hip pain Pain in joint, pelvic region and thigh Open wound of anterior abdominal wall, initial encounter Primary hypertension ([facility])- Primary Unspecified essential hypertension Yeast infection of the skin Candidiasis of skin and nails Morbid obesity ([facility]) Morbid obesity Primary hypertension ([facility])- Primary Unspecified essential hypertension Encounter for screening mammogram for malignant neoplasm of breast Gastroesophageal reflux disease, unspecified whether esophagitis present Acute gout of right foot, unspecified cause Osteoporosis, unspecified osteoporosis type, unspecified pathological fracture presence ([facility]) Morbid obesity ([facility]) Morbid obesity Pre-diabetes Other abnormal glucose Anemia, unspecified type Vitamin deficiency Unspecified vitamin deficiency Post-viral cough syndrome Primary hypertension ([facility])- Primary Unspecified essential hypertension Allergic rhinitis, unspecified Acute cough Morbid obesity ([facility]) Morbid obesity Former cigarette smoker Personal history of tobacco use, presenting hazards to health Toxic metabolic encephalopathy- Primary Hemiparesis, right ([facility]) Unspecified hemiplegia affecting unspecified side Acute respiratory failure with hypoxia ([facility]) Heart murmur Undiagnosed cardiac murmurs Primary hypertension ([facility]) Unspecified essential hypertension Morbid obesity ([facility]) Morbid obesity Bipolar disorder with severe depression ([facility]) Slurred speech Other speech disturbance Bilateral lower extremity edema- Primary Primary hypertension ([facility]) Unspecified essential hypertension Lower extremity edema Edema Essential (primary) hypertension ([facility]) Unspecified essential hypertension Gastro-esophageal reflux disease without esophagitis Allergic rhinitis, unspecified Bilateral lower extremity edema- Primary Morbid (severe) obesity due to excess calories ([facility]) Body mass index (BMI) 45.0-49.9, adult ([facility]) Pre-diabetes Other abnormal glucose Bilateral lower extremity edema- Primary Essential (primary) hypertension ([facility]) Unspecified essential hypertension Allergic rhinitis, unspecified OSMANY (obstructive sleep apnea) Obstructive sleep apnea (adult) (pediatric) Primary hypertension ([facility]) Unspecified essential hypertension Morbid obesity ([facility]) Morbid obesity Acute cystitis without hematuria- Primary Tobacco dependence Tobacco use disorder Needs flu shot Need for prophylactic vaccination and inoculation against influenza Morbid obesity ([facility]) Morbid obesity Well woman exam with routine gynecological exam- Primary Routine gynecological examination Morbid obesity ([facility]) Morbid obesity Altered mental status, unspecified altered mental status type- Primary Memory change Memory loss Concentration deficit 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 ([facility]) PTSD (post-traumatic stress disorder) ([facility]) Posttraumatic stress disorder Bipolar affective disorder, remission status unspecified ([facility]) Family history of dementia Family history [...] Edema Pre-diabetes Other abnormal glucose Morbid obesity ([facility]) Morbid obesity Yeast infection of the skin Candidiasis of skin and nails Tobacco dependence Tobacco use disorder Mood disorder ([facility]) Unspecified episodic mood disorder Primary hypertension ([facility]) Unspecified essential hypertension Left hip pain Pain in joint, pelvic region and thigh Open wound of anterior abdominal wall, initial encounter Primary hypertension ([facility])- Primary Unspecified essential hypertension Yeast infection of the skin Candidiasis of skin and nails Morbid obesity ([facility]) Morbid obesity Primary hypertension ([facility])- Primary Unspecified essential hypertension Allergic rhinitis, unspecified Acute cough Morbid obesity ([facility]) Morbid obesity Former cigarette smoker Personal history of tobacco use, presenting hazards to health Toxic metabolic encephalopathy- Primary Hemiparesis, right ([facility]) Unspecified hemiplegia affecting unspecified side Acute respiratory failure with hypoxia ([facility]) Heart murmur Undiagnosed cardiac murmurs Primary hypertension ([facility] Unspecified essential hypertension Morbid obesity ([facility]) Morbid obesity Bipolar disorder with severe depression ([facility]) Slurred speech Other speech disturbance Bilateral lower extremity edema- Primary Primary hypertension ([facility]) Unspecified essential hypertension Lower extremity edema Edema Essential (primary) hypertension ([facility]) Unspecified essential hypertension Gastro-esophageal reflux disease without esophagitis Allergic rhinitis, unspecified Bilateral lower extremity edema- Primary Morbid (severe) obesity due to excess calories ([facility]) Body mass index (BMI) 45.0-49.9, adult ([facility]) Pre-diabetes Other abnormal glucose Bilateral lower extremity edema- Primary Essential (primary) hypertension ([facility]) Unspecified essential hypertension Allergic rhinitis, unspecified OSMANY (obstructive sleep apnea) Obstructive sleep apnea (adult) (pediatric) Primary hypertension ([facility]) Unspecified essential hypertension Morbid obesity ([facility]) Morbid obesity Acute cystitis without hematuria- Primary Tobacco dependence Tobacco use disorder Needs flu shot Need for prophylactic vaccination and inoculation against influenza Morbid obesity ([facility]) Morbid obesity Well woman exam with routine gynecological exam- Primary Routine gynecological examination Morbid obesity ([facility]) Morbid obesity Restless leg Restless legs syndrome (RLS) Metabolic encephalopathy- Primary OSMANY (obstructive sleep apnea) Obstructive sleep apnea (adult) (pediatric) Morbid obesity ([facility]) Morbid obesity Bilateral lower extremity edema Tobacco dependence Tobacco use disorder Bipolar disorder with severe depression ([facility]) At risk for polypharmacy Anxiety Anxiety state, unspecified documented in this encounter [facility]* Diagnosis Encounter for annual [...] Unspecified episodic mood disorder Primary hypertension ([facility]) Unspecified essential hypertension Left hip pain Pain in joint, pelvic region and thigh Open wound of anterior abdominal wall, initial encounter Primary hypertension ([facility])- Primary Unspecified essential hypertension Yeast infection of the skin Candidiasis of skin and nails Morbid obesity ([facility]) Morbid obesity Primary hypertension ([facility])- Primary Unspecified essential hypertension Allergic rhinitis, unspecified Acute cough Morbid obesity ([facility]) Morbid obesity Former cigarette smoker Personal history of tobacco use, presenting hazards to health Toxic metabolic encephalopathy- Primary Hemiparesis, right ([facility]) Unspecified hemiplegia affecting unspecified side Acute respiratory failure with hypoxia ([facility]) Heart murmur Undiagnosed cardiac murmurs Primary hypertension ([facility] Unspecified essential hypertension Morbid obesity ([facility]) Morbid obesity Bipolar disorder with severe depression ([facility]) Slurred speech Other speech disturbance Bilateral lower extremity edema- Primary Primary hypertension ([facility]) Unspecified essential hypertension Lower extremity edema Edema Essential (primary) hypertension ([facility]) Unspecified essential hypertension Gastro-esophageal reflux disease without esophagitis Allergic rhinitis, unspecified Bilateral lower extremity edema- Primary Morbid (severe) obesity due to excess calories ([facility]) Body mass index (BMI) 45.0-49.9, adult ([facility]) Pre-diabetes Other abnormal glucose Bilateral lower extremity edema- Primary Essential (primary) hypertension ([facility]/HCC) Unspecified essential hypertension Allergic rhinitis, unspecified OSMANY (obstructive sleep apnea) Obstructive sleep apnea (adult) (pediatric) Primary hypertension ([facility]CC) Unspecified essential hypertension Morbid obesity ([facility]) Morbid obesity Acute cystitis without hematuria- Primary Tobacco dependence Tobacco use disorder Needs flu shot Need for prophylactic vaccination and inoculation against influenza Morbid obesity (CMS/HCC) Morbid obesity Well woman exam with routine gynecological exam- Primary Routine gynecological examination Morbid obesity (CMS/HCC) Morbid obesity Metabolic encephalopathy- Primary OSMANY (obstructive sleep apnea) Obstructive sleep apnea (adult) (pediatric) Morbid obesity ([facility]) Morbid obesity Bilateral lower extremity edema Tobacco dependence Tobacco use disorder Bipolar disorder with severe depression ([facility]) At risk for polypharmacy Anxiety Anxiety state, unspecified Primary hypertension ([facility]CC) Unspecified essential hypertension Right bundle branch block (RBBB) determined by electrocardiography documented in this encounter [facility]* Diagnosis Yeast infection of the skin- Primary Candidiasis of skin and nails documented in this encounter [facility]* Diagnosis 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 Restless leg Restless legs syndrome (RLS) Metabolic encephalopathy documented in this encounter [facility]* Diagnosis OSMANY (obstructive sleep apnea)- Primary Obstructive sleep apnea (adult) (pediatric) Restless leg Restless legs syndrome (RLS) documented in this encounter [facility]* Diagnosis Bilateral lower extremity edema- Primary Essential (primary) hypertension ([facility]CC) Unspecified essential hypertension Allergic rhinitis, unspecified OSMANY (obstructive sleep apnea) Obstructive sleep apnea (adult) (pediatric) Primary hypertension ([facility]) Unspecified essential hypertension Morbid obesity ([facility] Morbid obesity documented in this encounter [...] Tobacco dependence Tobacco use disorder Mood disorder ([facility]) Unspecified episodic mood disorder Primary hypertension ([facility]) Unspecified essential hypertension Left hip pain Pain in joint, pelvic region and thigh Open wound of anterior abdominal wall, initial encounter Primary hypertension ([facility]CC)- Primary Unspecified essential hypertension Yeast infection of the skin Candidiasis of skin and nails Morbid obesity ([facility]) Morbid obesity Primary hypertension ([facility])- Primary Unspecified essential hypertension Allergic rhinitis, unspecified Acute cough Morbid obesity ([facility]) Morbid obesity Former cigarette smoker Personal history of tobacco use, presenting hazards to health Toxic metabolic encephalopathy- Primary Hemiparesis, right ([facility]) Unspecified hemiplegia affecting unspecified side Acute respiratory failure with hypoxia ([facility]) Heart murmur Undiagnosed cardiac murmurs Primary hypertension (CMS/HCC) Unspecified essential hypertension Morbid obesity ([facility]CC) Morbid obesity Bipolar disorder with severe depression ([facility]) Slurred speech Other speech disturbance Bilateral lower extremity edema- Primary Primary hypertension ([facility]CC) Unspecified essential hypertension Lower extremity edema Edema Essential (primary) hypertension ([facility]) Unspecified essential hypertension Gastro-esophageal reflux disease without esophagitis Allergic rhinitis, unspecified Bilateral lower extremity edema- Primary Morbid (severe) obesity due to excess calories ([facility]) Body mass index (BMI) 45.0-49.9, adult ([facility]) Pre-diabetes Other abnormal glucose Bilateral lower extremity edema- Primary Essential (primary) hypertension ([facility]) Unspecified essential hypertension Allergic rhinitis, unspecified OSMANY (obstructive sleep apnea) Obstructive sleep apnea (adult) (pediatric) Primary hypertension ([facility]) Unspecified essential hypertension Morbid obesity ([facility]) Morbid obesity Acute cystitis without hematuria- Primary Tobacco dependence Tobacco use disorder Needs flu shot Need for prophylactic vaccination and inoculation against influenza Morbid obesity ([facility]CC) Morbid obesity Well woman exam with routine gynecological exam- Primary Routine gynecological examination Morbid obesity ([facility]) Morbid obesity Metabolic encephalopathy- Primary OSMANY (obstructive sleep apnea) Obstructive sleep apnea (adult) (pediatric) Morbid obesity ([facility]) Morbid obesity Bilateral lower extremity edema Tobacco dependence Tobacco use disorder Bipolar disorder with severe depression ([facility]) At risk for polypharmacy Anxiety Anxiety state, unspecified Primary hypertension ([facility]) Unspecified essential hypertension Right bundle branch block (RBBB) determined by electrocardiography Metabolic encephalopathy- Primary Memory change Memory loss Altered mental status, unspecified altered mental status type Concentration deficit PTSD (post-traumatic stress disorder) ([facility]) Posttraumatic stress disorder Bipolar affective disorder, remission status unspecified ([facility]) Family history of dementia Family history of other neurological diseases 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[facility]) OSMANY (obstructive sleep apnea) Obstructive sleep [...] Edema Pre-diabetes Other abnormal glucose Morbid obesity ([facility]/HCC) Morbid obesity Yeast infection of the skin Candidiasis of skin and nails Tobacco dependence Tobacco use disorder Mood disorder ([facility]) Unspecified episodic mood disorder Primary hypertension ([facility]) Unspecified essential hypertension Left hip pain Pain in joint, pelvic region and thigh Open wound of anterior abdominal wall, initial encounter Primary hypertension ([facility]CC)- Primary Unspecified essential hypertension Yeast infection of the skin Candidiasis of skin and nails Morbid obesity (CMS/HCC) Morbid obesity Primary hypertension ([facility])- Primary Unspecified essential hypertension Allergic rhinitis, unspecified Acute cough Morbid obesity ([facility]) Morbid obesity Former cigarette smoker Personal history of tobacco use, presenting hazards to health Toxic metabolic encephalopathy- Primary Hemiparesis, right ([facility]) Unspecified hemiplegia affecting unspecified side Acute respiratory failure with hypoxia ([facility]) Heart murmur Undiagnosed cardiac murmurs Primary hypertension ([facility] Unspecified essential hypertension Morbid obesity ([facility]) Morbid obesity Bipolar disorder with severe depression ([facility]) Slurred speech Other speech disturbance Bilateral lower extremity edema- Primary Primary hypertension ([facility]) Unspecified essential hypertension Lower extremity edema Edema Essential (primary) hypertension ([facility]) Unspecified essential hypertension Gastro-esophageal reflux disease without esophagitis Allergic rhinitis, unspecified Bilateral lower extremity edema- Primary Morbid (severe) obesity due to excess calories ([facility]) Body mass index (BMI) 45.0-49.9, adult ([facility]) Pre-diabetes Other abnormal glucose Bilateral lower extremity edema- Primary Essential (primary) hypertension ([facility]) Unspecified essential hypertension Allergic rhinitis, unspecified OSMANY (obstructive sleep apnea) Obstructive sleep apnea (adult) (pediatric) Primary hypertension ([facility]) Unspecified essential hypertension Morbid obesity ([facility]) Morbid obesity Acute cystitis without hematuria- Primary Tobacco dependence Tobacco use disorder Needs flu shot Need for prophylactic vaccination and inoculation against influenza Morbid obesity (CMS/HCC) Morbid obesity Well woman exam with routine gynecological exam- Primary Routine gynecological examination Morbid obesity (CMS/HCC) Morbid obesity Metabolic encephalopathy- Primary OSMANY (obstructive sleep apnea) Obstructive sleep apnea (adult) (pediatric) Morbid obesity ([facility]/HCC) Morbid obesity Bilateral lower extremity edema Tobacco dependence Tobacco use disorder Bipolar disorder with severe depression ([facility]) At risk for polypharmacy Anxiety Anxiety state, unspecified Primary hypertension (CMS/HCC) Unspecified essential hypertension Right bundle branch block (RBBB) determined by electrocardiography Transient alteration of awareness- Primary Restless leg Restless legs syndrome (RLS) documented in this encounter [facility]Evaluation note* Diagnosis Encounter for annual [...] Unspecified episodic mood disorder Primary hypertension ([facility]) Unspecified essential hypertension Left hip pain Pain in joint, pelvic region and thigh Open wound of anterior abdominal wall, initial encounter Primary hypertension ([facility]/HCC)- Primary Unspecified essential hypertension Yeast infection of the skin Candidiasis of skin and nails Morbid obesity ([facility]/HCC) Morbid obesity Primary hypertension ([facility]CC)- Primary Unspecified essential hypertension Allergic rhinitis, unspecified Acute cough Morbid obesity (CMS/[facility]) Morbid obesity Former cigarette smoker Personal history of tobacco use, presenting hazards to health Toxic metabolic encephalopathy- Primary Hemiparesis, right ([facility]) Unspecified hemiplegia affecting unspecified side Acute respiratory failure with hypoxia ([facility]) Heart murmur Undiagnosed cardiac murmurs Primary hypertension ([facility]) [facility]specified essential hypertension Morbid obesity ([facility]) Morbid obesity Bipolar disorder with severe depression ([facility]) Slurred speech Other speech disturbance Bilateral lower extremity edema- Primary Primary hypertension (CMS/HCC) Unspecified essential hypertension Lower extremity edema Edema Essential (primary) hypertension ([facility]) Unspecified essential hypertension Gastro-esophageal reflux disease without esophagitis Allergic rhinitis, unspecified Bilateral lower extremity edema- Primary Morbid (severe) obesity due to excess calories ([facility]) Body mass index (BMI) 45.0-49.9, adult ([facility]) Pre-diabetes Other abnormal glucose Bilateral lower extremity edema- Primary Essential (primary) hypertension (CMS/HCC) Unspecified essential hypertension Allergic rhinitis, unspecified OSMANY (obstructive sleep apnea) Obstructive sleep apnea (adult) (pediatric) Primary hypertension (CMS/HCC) Unspecified essential hypertension Morbid obesity ([facility]) Morbid obesity Acute cystitis without hematuria- Primary Tobacco dependence Tobacco use disorder Needs flu shot Need for prophylactic vaccination and inoculation against influenza Morbid obesity ([facility]) Morbid obesity Well woman exam with routine gynecological exam- Primary Routine gynecological examination Morbid obesity ([facility]/HCC) Morbid obesity Metabolic encephalopathy- Primary OSMANY (obstructive sleep apnea) Obstructive sleep apnea (adult) (pediatric) Morbid obesity ([facility]) Morbid obesity Bilateral lower extremity edema Tobacco dependence Tobacco use disorder Bipolar disorder with severe depression ([facility]) At risk for polypharmacy Anxiety Anxiety state, unspecified Primary hypertension ([facility]) Unspecified essential hypertension Right bundle branch block (RBBB) determined by electrocardiography Primary hypertension ([facility])- Primary Unspecified essential hypertension Chronic kidney disease, stage 3a ([facility]) ([facility]) Morbid (severe) obesity due to excess calories ([facility]) Body mass index (BMI) 45.0-49.9, adult ([facility]) OSMANY (obstructive sleep apnea) Obstructive sleep apnea (adult) (pediatric) Hemiparesis, right ([facility]) Unspecified hemiplegia affecting unspecified side Gastroesophageal reflux disease, unspecified whether esophagitis present Metabolic encephalopathy Essential (primary) hypertension ([facility]) Unspecified essential hypertension Allergic rhinitis, unspecified [...] Edema Pre-diabetes Other abnormal glucose Morbid obesity ([facility]) Morbid obesity Yeast infection of the skin Candidiasis of skin and nails Tobacco dependence Tobacco use disorder Mood disorder ([facility]) Unspecified episodic mood disorder Primary hypertension ([facility]) Unspecified essential hypertension Left hip pain Pain in joint, pelvic region and thigh Open wound of anterior abdominal wall, initial encounter Primary hypertension ([facility])- Primary Unspecified essential hypertension Yeast infection of the skin Candidiasis of skin and nails Morbid obesity ([facility]) Morbid obesity Primary hypertension ([facility])- Primary Unspecified essential hypertension Allergic rhinitis, unspecified Acute cough Morbid obesity ([facility]) Morbid obesity Former cigarette smoker Personal history of tobacco use, presenting hazards to health Toxic metabolic encephalopathy- Primary Hemiparesis, right ([facility]) Unspecified hemiplegia affecting unspecified side Acute respiratory failure with hypoxia ([facility]) Heart murmur Undiagnosed cardiac murmurs Primary hypertension ([facility]) Unspecified essential hypertension Morbid obesity ([facility]/HCC) Morbid obesity Bipolar disorder with severe depression ([facility]) Slurred speech Other speech disturbance Bilateral lower extremity edema- Primary Primary hypertension ([facility]/HCC) Unspecified essential hypertension Lower extremity edema Edema Essential (primary) hypertension ([facility]/HCC) Unspecified essential hypertension Gastro-esophageal reflux disease without esophagitis Allergic rhinitis, unspecified Bilateral lower extremity edema- Primary Morbid (severe) obesity due to excess calories ([facility]) Body mass index (BMI) 45.0-49.9, adult ([facility]) Pre-diabetes Other abnormal glucose Bilateral lower extremity edema- Primary Essential (primary) hypertension ([facility]) Unspecified essential hypertension Allergic rhinitis, unspecified OSMANY (obstructive sleep apnea) Obstructive sleep apnea (adult) (pediatric) Primary hypertension ([facility]) Unspecified essential hypertension Morbid obesity ([facility]) Morbid obesity Acute cystitis without hematuria- Primary Tobacco dependence Tobacco use disorder Needs flu shot Need for prophylactic vaccination and inoculation against influenza Morbid obesity ([facility]/HCC) Morbid obesity Well woman exam with routine gynecological exam- Primary Routine gynecological examination Morbid obesity ([facility]) Morbid obesity Metabolic encephalopathy- Primary OSMANY (obstructive sleep apnea) Obstructive sleep apnea (adult) (pediatric) Morbid obesity ([facility]) Morbid obesity Bilateral lower extremity edema Tobacco dependence Tobacco use disorder Bipolar disorder with severe depression ([facility]) At risk for polypharmacy Anxiety Anxiety state, unspecified Primary hypertension ([facility]) Unspecified essential hypertension Right bundle branch block (RBBB) determined by electrocardiography Primary hypertension ([facility])- Primary Unspecified essential hypertension Chronic kidney disease, stage 3a (HCC) ([facility]) Morbid (severe) obesity due to excess calories ([facility]) Body mass index (BMI) 45.0-49.9, adult ([facility]) OSMANY (obstructive sleep apnea) Obstructive sleep apnea (adult) (pediatric) Hemiparesis, right ([facility]) Unspecified hemiplegia affecting unspecified side Gastroesophageal reflux disease, unspecified whether esophagitis present Metabolic encephalopathy Essential (primary) hypertension ([facility]) Unspecified essential hypertension Allergic rhinitis, unspecified Gastro-esophageal reflux disease without esophagitis Bilateral lower extremity edema 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 ([facility])- Primary OSMANY (obstructive sleep apnea) Obstructive sleep apnea (adult) (pediatric) Metabolic encephalopathy Restless leg Restless legs syndrome (RLS) Degeneration of intervertebral disc of lumbar region with discogenic back pain and lower extremity pain documented in this encounter [facility] [...] metabolic encephalopathy- Primary Hemiparesis, right (CMS/[facility]) Unspecified hemiplegia affecting unspecified side Acute respiratory failure with hypoxia (CMS/[facility]) Heart murmur Undiagnosed cardiac murmurs Primary hypertension (CMS/HCC) Unspecified essential hypertension Morbid obesity (CMS/HCC) Morbid obesity Bipolar disorder with severe depression (CMS/[facility]) Slurred speech Other speech disturbance Bilateral lower extremity edema- Primary Primary hypertension (CMS/HCC) Unspecified essential hypertension Lower extremity edema Edema Essential (primary) hypertension (CMS/HCC) Unspecified essential hypertension Gastro-esophageal reflux disease without esophagitis Allergic rhinitis, unspecified Bilateral lower extremity edema- Primary Morbid (severe) obesity due to excess calories (CMS/[facility]) Body mass index (BMI) 45.0-49.9, adult (CMS/[facility]) Pre-diabetes Other abnormal glucose Bilateral lower extremity edema- Primary Essential (primary) hypertension (CMS/HCC) Unspecified essential hypertension Allergic rhinitis, unspecified OSMANY (obstructive sleep apnea) Obstructive sleep apnea (adult) (pediatric) Primary hypertension (CMS/HCC) Unspecified essential hypertension Morbid obesity ([facility]/HCC) Morbid obesity Acute cystitis without hematuria- Primary Tobacco dependence Tobacco use disorder Needs flu shot Need for prophylactic vaccination and inoculation against influenza Morbid obesity ([facility]/HCC) Morbid obesity Well woman exam with routine gynecological exam- Primary Routine gynecological examination Morbid obesity ([facility]/HCC) Morbid obesity Metabolic encephalopathy- Primary OSMANY (obstructive sleep apnea) Obstructive sleep apnea (adult) (pediatric) Morbid obesity ([facility]/HCC) Morbid obesity Bilateral lower extremity edema Tobacco dependence Tobacco use disorder Bipolar disorder with severe depression ([facility]) At risk for polypharmacy Anxiety Anxiety state, unspecified Primary hypertension ([facility]) Unspecified essential hypertension Right bundle branch block (RBBB) determined by electrocardiography Primary hypertension ([facility])- Primary Unspecified essential hypertension Chronic kidney disease, stage 3a (HCC) ([facility]) Morbid (severe) obesity due to excess calories ([facility]) Body mass index (BMI) 45.0-49.9, adult ([facility]) OSMANY (obstructive sleep apnea) Obstructive sleep apnea (adult) (pediatric) Hemiparesis, right ([facility]) Unspecified hemiplegia affecting unspecified side Gastroesophageal reflux disease, unspecified whether esophagitis present Metabolic encephalopathy Essential (primary) hypertension ([facility]) Unspecified essential hypertension Allergic rhinitis, unspecified [...] Edema Pre-diabetes Other abnormal glucose Morbid obesity ([facility]/HCC) Morbid obesity Yeast infection of the skin Candidiasis of skin and nails Tobacco dependence Tobacco use disorder Mood disorder ([facility]) Unspecified episodic mood disorder Primary hypertension ([facility]) Unspecified essential hypertension Left hip pain Pain in joint, pelvic region and thigh Open wound of anterior abdominal wall, initial encounter Primary hypertension ([facility]/HCC)- Primary Unspecified essential hypertension Yeast infection of the skin Candidiasis of skin and nails Morbid obesity ([facility]/HCC) Morbid obesity Primary hypertension ([facility])- Primary Unspecified essential hypertension Allergic rhinitis, unspecified Acute cough Morbid obesity ([facility]/HCC) Morbid obesity Former cigarette smoker Personal history of tobacco use, presenting hazards to health Toxic metabolic encephalopathy- Primary Hemiparesis, right ([facility]) Unspecified hemiplegia affecting unspecified side Acute respiratory failure with hypoxia ([facility]) Heart murmur Undiagnosed cardiac murmurs Primary hypertension ([facility]/HCC) Unspecified essential hypertension Morbid obesity ([facility]/HCC) Morbid obesity Bipolar disorder with severe depression ([facility]) Slurred speech Other speech disturbance Bilateral lower extremity edema- Primary Primary hypertension (CMS/HCC) Unspecified essential hypertension Lower extremity edema Edema Essential (primary) hypertension ([facility]/HCC) Unspecified essential hypertension Gastro-esophageal reflux disease without esophagitis Allergic rhinitis, unspecified Bilateral lower extremity edema- Primary Morbid (severe) obesity due to excess calories ([facility]) Body mass index (BMI) 45.0-49.9, adult ([facility]) Pre-diabetes Other abnormal glucose Bilateral lower extremity edema- Primary Essential (primary) hypertension ([facility]/HCC) Unspecified essential hypertension Allergic rhinitis, unspecified OSMANY (obstructive sleep apnea) Obstructive sleep apnea (adult) (pediatric) Primary hypertension ([facility]) Unspecified essential hypertension Morbid obesity ([facility]) Morbid obesity Acute cystitis without hematuria- Primary Tobacco dependence Tobacco use disorder Needs flu shot Need for prophylactic vaccination and inoculation against influenza Morbid obesity ([facility]/HCC) Morbid obesity Well woman exam with routine gynecological exam- Primary Routine gynecological examination Morbid obesity ([facility]/HCC) Morbid obesity Metabolic encephalopathy- Primary OSMANY (obstructive sleep apnea) Obstructive sleep apnea (adult) (pediatric) Morbid obesity ([facility]) Morbid obesity Bilateral lower extremity edema Tobacco dependence Tobacco use disorder Bipolar disorder with severe depression ([facility]) At risk for polypharmacy Anxiety Anxiety state, unspecified Primary hypertension ([facility]) Unspecified essential hypertension Right bundle branch block (RBBB) determined by electrocardiography Primary hypertension ([facility]/HCC)- Primary Unspecified essential hypertension Chronic kidney disease, stage 3a (HCC) ([facility]) Morbid (severe) obesity due to excess calories ([facility]) Body mass index (BMI) 45.0-49.9, adult ([facility]) OSMANY (obstructive sleep apnea) Obstructive sleep apnea (adult) (pediatric) Hemiparesis, right ([facility]) Unspecified hemiplegia affecting unspecified side Gastroesophageal reflux disease, unspecified whether esophagitis present Metabolic encephalopathy Essential (primary) hypertension ([facility]) Unspecified essential hypertension Allergic rhinitis, unspecified Gastro-esophageal reflux disease without esophagitis Bilateral lower extremity edema URI, acute- Primary Acute upper respiratory infections of unspecified site documented in this encounter [facility] HealthcareEvaluation note* Diagnosis Encounter for annual wellness visit (AWV) in Medicare patient- Primary OSMANY (obstructive sleep apnea) Obstructive sleep apnea (adult) (pediatric) Chronic pain disorder Chronic pain syndrome Gastroesophageal reflux disease, unspecified whether esophagitis present Overactive bladder Hypertonicity of bladder Lower extremity edema Edema Pre-diabetes Other abnormal glucose Morbid obesity ([facility]/HCC) Morbid obesity Yeast infection of the skin Candidiasis of skin and nails Tobacco dependence Tobacco use disorder Mood disorder ([facility]/HCC) Unspecified episodic mood disorder Primary hypertension ([facility]) Unspecified essential hypertension Left hip pain Pain in joint, pelvic region and thigh Open wound of anterior abdominal wall, initial encounter Primary hypertension ([facility]/HCC)- Primary Unspecified essential hypertension Yeast infection of the skin Candidiasis of skin and nails Morbid obesity ([facility]) Morbid obesity Primary hypertension ([facility])- Primary Unspecified essential hypertension Allergic rhinitis, unspecified Acute cough Morbid obesity ([facility]) Morbid obesity Former cigarette smoker Personal history of tobacco use, presenting hazards to health Toxic metabolic encephalopathy- Primary Hemiparesis, right ([facility]) Unspecified hemiplegia affecting unspecified side Acute respiratory failure with hypoxia ([facility]) Heart murmur Undiagnosed cardiac murmurs Primary hypertension ([facility]) Unspecified essential hypertension Morbid obesity ([facility]) Morbid obesity Bipolar disorder with severe depression ([facility]) Slurred speech Other speech disturbance Bilateral lower extremity edema- Primary Primary hypertension ([facility]) Unspecified essential hypertension Lower extremity edema Edema Essential (primary) hypertension ([facility]) Unspecified essential hypertension Gastro-esophageal reflux disease without esophagitis Allergic rhinitis, unspecified Bilateral lower extremity edema- Primary Morbid (severe) obesity due to excess calories ([facility]) Body mass index (BMI) 45.0-49.9, adult ([facility]) Pre-diabetes Other abnormal glucose Bilateral lower extremity edema- Primary Essential (primary) hypertension ([facility]) Unspecified essential hypertension Allergic rhinitis, unspecified OSMANY (obstructive sleep apnea) Obstructive sleep apnea (adult) (pediatric) Primary hypertension ([facility]/HCC) Unspecified essential hypertension Morbid obesity ([facility]) Morbid obesity Acute cystitis without hematuria- Primary Tobacco dependence Tobacco use disorder Needs flu shot Need for prophylactic vaccination and inoculation against influenza Morbid obesity ([facility]) Morbid obesity Well woman exam with routine gynecological exam- Primary Routine gynecological examination Morbid obesity ([facility]/HCC) Morbid obesity Metabolic encephalopathy- Primary OSMANY (obstructive sleep apnea) Obstructive sleep apnea (adult) (pediatric) Morbid obesity ([facility]/HCC) Morbid obesity Bilateral lower extremity edema Tobacco dependence Tobacco use disorder Bipolar disorder with severe depression ([facility]) At risk for polypharmacy Anxiety Anxiety state, unspecified Primary hypertension ([facility]) Unspecified essential hypertension Right bundle branch block (RBBB) determined by electrocardiography Primary hypertension ([facility])- Primary Unspecified essential hypertension Chronic kidney disease, stage 3a (HCC) ([facility]) Morbid (severe) obesity due to excess calories ([facility]) Body mass index (BMI) 45.0-49.9, adult ([facility]) OSMANY (obstructive sleep apnea) Obstructive sleep apnea (adult) (pediatric) Hemiparesis, right ([facility]) Unspecified hemiplegia affecting unspecified side Gastroesophageal reflux disease, unspecified whether esophagitis present Metabolic encephalopathy Essential (primary) hypertension ([facility]) Unspecified essential hypertension Allergic rhinitis, unspecified Gastro-esophageal reflux disease without esophagitis Bilateral lower extremity edema OSMANY (obstructive sleep apnea)- Primary Obstructive sleep apnea (adult) (pediatric) Restless leg Restless legs syndrome (RLS) 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[facility]) Concentration deficit documented in this encounter [facility] HealthcareEvaluation note* Diagnosis Encounter for annual wellness visit (AWV) in Medicare patient- Primary OSMANY (obstructive sleep apnea) Obstructive sleep apnea (adult) (pediatric) Chronic pain disorder Chronic pain syndrome Gastroesophageal reflux disease, unspecified whether esophagitis present Overactive bladder Hypertonicity of bladder Lower extremity edema Edema Pre-diabetes Other abnormal glucose Morbid obesity ([facility]) Morbid obesity Yeast infection of the skin Candidiasis of skin and nails Tobacco dependence Tobacco use disorder Mood disorder ([facility]) Unspecified episodic mood disorder Primary hypertension ([facility]) Unspecified essential hypertension Left hip pain Pain in joint, pelvic region and thigh Open wound of anterior abdominal wall, initial encounter Primary hypertension ([facility]/HCC)- Primary Unspecified essential hypertension Yeast infection of the skin Candidiasis of skin and nails Morbid obesity ([facility]/HCC) Morbid obesity Primary hypertension ([facility])- Primary Unspecified essential hypertension Allergic rhinitis, unspecified Acute cough Morbid obesity ([facility]) Morbid obesity Former cigarette smoker Personal history of tobacco use, presenting hazards to health Toxic metabolic encephalopathy- Primary Hemiparesis, right ([facility]/HCC) Unspecified hemiplegia affecting unspecified side Acute respiratory failure with hypoxia ([facility]) Heart murmur Undiagnosed cardiac murmurs Primary hypertension ([facility]/HCC) Unspecified essential hypertension Morbid obesity ([facility]/HCC) Morbid obesity Bipolar disorder with severe depression ([facility]) Slurred speech Other speech disturbance Bilateral lower extremity edema- Primary Primary hypertension ([facility]/HCC) Unspecified essential hypertension Lower extremity edema Edema Essential (primary) hypertension ([facility]/HCC) Unspecified essential hypertension Gastro-esophageal reflux disease without esophagitis Allergic rhinitis, unspecified Bilateral lower extremity edema- Primary Morbid (severe) obesity due to excess calories ([facility]) Body mass index (BMI) 45.0-49.9, adult ([facility]) Pre-diabetes Other abnormal glucose Bilateral lower extremity edema- Primary Essential (primary) hypertension ([facility]/HCC) Unspecified essential hypertension Allergic rhinitis, unspecified OSMANY (obstructive sleep apnea) Obstructive sleep apnea (adult) (pediatric) Primary hypertension ([facility]) Unspecified essential hypertension Morbid obesity ([facility]) Morbid obesity Acute cystitis without hematuria- Primary Tobacco dependence Tobacco use disorder Needs flu shot Need for prophylactic vaccination and inoculation against influenza Morbid obesity ([facility]/HCC) Morbid obesity Well woman exam with routine gynecological exam- Primary Routine gynecological examination Morbid obesity ([facility]/HCC) Morbid obesity Metabolic encephalopathy- Primary OSMANY (obstructive sleep apnea) Obstructive sleep apnea (adult) (pediatric) Morbid obesity ([facility]) Morbid obesity Bilateral lower extremity edema Tobacco dependence Tobacco use disorder Bipolar disorder with severe depression ([facility]) At risk for polypharmacy Anxiety Anxiety state, unspecified Primary hypertension ([facility]) Unspecified essential hypertension Right bundle branch block (RBBB) determined by electrocardiography Primary hypertension ([facility]/HCC)- Primary Unspecified essential hypertension Chronic kidney disease, stage 3a (HCC) ([facility]) Morbid (severe) obesity due to excess calories ([facility]) Body mass index (BMI) 45.0-49.9, adult ([facility]) OSMANY (obstructive sleep apnea) Obstructive sleep apnea (adult) (pediatric) Hemiparesis, right ([facility]) Unspecified hemiplegia affecting unspecified side Gastroesophageal reflux disease, unspecified whether esophagitis present Metabolic encephalopathy Essential (primary) hypertension ([facility]/HCC) Unspecified essential hypertension Allergic rhinitis, unspecified Gastro-esophageal reflux disease without esophagitis Bilateral lower extremity edema Primary hypertension (CMS/HCC)- Primary Unspecified essential hypertension Morbid (severe) obesity due to excess calories ([facility]/HCC) Essential (primary) hypertension (CMS/HCC) Unspecified essential hypertension Allergic rhinitis, unspecified Gastro-esophageal reflux disease without esophagitis Bilateral lower extremity edema Bronchitis Bronchitis, not specified as acute or chronic documented in this encounter [facility] HealthcareEvaluation note* Diagnosis Encounter for annual [...] Allergic rhinitis, unspecified Acute cough Morbid obesity ([facility]/HCC) Morbid obesity Former cigarette smoker Personal history of tobacco use, presenting hazards to health Toxic metabolic encephalopathy- Primary Hemiparesis, right (CMS/[facility]) Unspecified hemiplegia affecting unspecified side Acute respiratory failure with hypoxia ([facility]) Heart murmur Undiagnosed cardiac murmurs Primary hypertension ([facility]/HCC) Unspecified essential hypertension Morbid obesity ([facility]/HCC) Morbid obesity Bipolar disorder with severe depression (CMS/[facility]) Slurred speech Other speech disturbance Bilateral lower extremity edema- Primary Primary hypertension (CMS/HCC) Unspecified essential hypertension Lower extremity edema Edema Essential (primary) hypertension (CMS/HCC) Unspecified essential hypertension Gastro-esophageal reflux disease without esophagitis Allergic rhinitis, unspecified Bilateral lower extremity edema- Primary Morbid (severe) obesity due to excess calories ([facility]/HCC) Body mass index (BMI) 45.0-49.9, adult ([facility]) Pre-diabetes Other abnormal glucose Bilateral lower extremity edema- Primary Essential (primary) hypertension (CMS/HCC) Unspecified essential hypertension Allergic rhinitis, unspecified OSMANY (obstructive sleep apnea) Obstructive sleep apnea (adult) (pediatric) Primary hypertension ([facility]) Unspecified essential hypertension Morbid obesity ([facility]) Morbid obesity Well woman exam with routine gynecological exam- Primary Routine gynecological examination Morbid obesity ([facility]/HCC) Morbid obesity Metabolic encephalopathy- Primary OSMANY (obstructive sleep apnea) Obstructive sleep apnea (adult) (pediatric) Morbid obesity ([facility]/HCC) Morbid obesity Bilateral lower extremity edema Tobacco dependence Tobacco use disorder Bipolar disorder with severe depression ([facility]) At risk for polypharmacy Anxiety Anxiety state, unspecified Primary hypertension ([facility]) Unspecified essential hypertension Right bundle branch block (RBBB) determined by electrocardiography Primary hypertension ([facility])- Primary Unspecified essential hypertension Chronic kidney disease, stage 3a (HCC) ([facility]) Morbid (severe) obesity due to excess calories ([facility]) Body mass index (BMI) 45.0-49.9, adult ([facility]) OSMANY (obstructive sleep apnea) Obstructive sleep apnea (adult) (pediatric) Hemiparesis, right ([facility]) Unspecified hemiplegia affecting unspecified side Gastroesophageal reflux disease, unspecified whether esophagitis present Metabolic encephalopathy Essential (primary) hypertension ([facility]) Unspecified essential hypertension Allergic rhinitis, unspecified Gastro-esophageal reflux disease without esophagitis Bilateral lower extremity edema Primary hypertension ([facility])- Primary Unspecified essential hypertension Morbid (severe) obesity due to excess calories ([facility]) Essential (primary) hypertension ([facility]) Unspecified essential hypertension Allergic rhinitis, unspecified Gastro-esophageal reflux disease without esophagitis Bilateral lower extremity edema Bronchitis Bronchitis, not specified as acute or chronic Primary hypertension ([facility])- Primary Unspecified essential hypertension Bronchitis Bronchitis, not specified as acute or chronic Bilateral lower extremity edema Morbid (severe) obesity due to excess calories ([facility]) Pre-diabetes Other abnormal glucose Allergic rhinitis, [...] Edema Pre-diabetes Other abnormal glucose Morbid obesity ([facility]) Morbid obesity Yeast infection of the [...] Candidiasis of skin and nails Morbid obesity ([facility]) Morbid obesity Primary hypertension- Primary Unspecified essential hypertension Allergic rhinitis, unspecified Acute cough Morbid obesity ([facility]) Morbid obesity Former cigarette smoker Personal history of tobacco use, presenting hazards to health Toxic metabolic encephalopathy- Primary Hemiparesis, right (HCC) Unspecified hemiplegia affecting unspecified side Acute respiratory failure with hypoxia ([facility]) Heart murmur Undiagnosed cardiac murmurs Primary hypertension Unspecified essential hypertension Morbid obesity ([facility]) Morbid obesity Bipolar disorder with severe depression ([facility]) Slurred speech Other speech disturbance Bilateral lower extremity edema- Primary Primary hypertension Unspecified essential hypertension Lower extremity edema Edema Essential (primary) hypertension Unspecified essential hypertension Gastro-esophageal reflux disease without esophagitis Allergic rhinitis, unspecified Bilateral lower extremity edema- Primary Morbid (severe) obesity due to excess calories [place] [place] Body mass index (BMI) 45.0-49.9, adult [place] [place] Pre-diabetes Other abnormal glucose Bilateral lower extremity edema- Primary Essential (primary) hypertension Unspecified essential hypertension Allergic rhinitis, unspecified OSMANY (obstructive sleep apnea) Obstructive sleep apnea (adult) (pediatric) Primary hypertension Unspecified essential hypertension Morbid obesity [place] [place] Morbid obesity Well woman exam with routine gynecological exam- Primary Routine gynecological examination Morbid obesity [place] [place] Morbid obesity Metabolic encephalopathy- Primary OSMANY (obstructive sleep apnea) Obstructive sleep apnea (adult) (pediatric) Morbid obesity [place] [place] Morbid obesity Bilateral lower extremity edema Tobacco dependence Tobacco use disorder Bipolar disorder with severe depression ([facility]) At risk for polypharmacy Anxiety Anxiety state, unspecified Primary hypertension Unspecified essential hypertension Right bundle branch block (RBBB) determined by electrocardiography Primary hypertension- Primary Unspecified essential hypertension Chronic kidney disease, stage 3a [place] [place] Morbid (severe) obesity due to excess calories [place] [place] Body mass index (BMI) 45.0-49.9, adult [place] [place] OSMANY (obstructive sleep apnea) Obstructive sleep apnea (adult) (pediatric) Hemiparesis, right ([facility]) Unspecified hemiplegia affecting unspecified side Gastroesophageal reflux disease, unspecified whether esophagitis present Metabolic encephalopathy Essential (primary) hypertension Unspecified essential hypertension Allergic rhinitis, unspecified Gastro-esophageal reflux disease without esophagitis Bilateral lower extremity edema Primary hypertension- Primary Unspecified essential hypertension Morbid (severe) obesity due to excess calories ([facility]) Essential (primary) hypertension Unspecified essential hypertension Allergic rhinitis, unspecified Gastro-esophageal reflux disease without esophagitis Bilateral lower extremity edema Bronchitis Bronchitis, not specified as acute or chronic Primary hypertension- Primary Unspecified essential hypertension Bronchitis Bronchitis, not specified as acute or chronic Bilateral lower extremity edema Morbid (severe) obesity due to excess calories ([facility]) Pre-diabetes Other abnormal glucose Allergic rhinitis, [...] Edema Pre-diabetes Other abnormal glucose Morbid obesity ([facility]) Morbid obesity Yeast infection of the [...] Candidiasis of skin and nails Morbid obesity ([facility]) Morbid obesity Primary hypertension- Primary Unspecified essential hypertension Allergic rhinitis, unspecified Acute cough Morbid obesity ([facility]) Morbid obesity Former cigarette smoker Personal history of tobacco use, presenting hazards to health Toxic metabolic encephalopathy- Primary Hemiparesis, right (HCC) Unspecified hemiplegia affecting unspecified side Acute respiratory failure with hypoxia ([facility]) Heart murmur Undiagnosed cardiac murmurs Primary hypertension Unspecified essential hypertension Morbid obesity ([facility]) Morbid obesity Bipolar disorder with severe depression ([facility]) Slurred speech Other speech disturbance Bilateral lower extremity edema- Primary Primary hypertension Unspecified essential hypertension Lower extremity edema Edema Essential (primary) hypertension Unspecified essential hypertension Gastro-esophageal reflux disease without esophagitis Allergic rhinitis, unspecified Bilateral lower extremity edema- Primary Morbid (severe) obesity due to excess calories [place] [place] Body mass index (BMI) 45.0-49.9, adult [place] [place] Pre-diabetes Other abnormal glucose Bilateral lower extremity edema- Primary Essential (primary) hypertension Unspecified essential hypertension Allergic rhinitis, unspecified OSMANY (obstructive sleep apnea) Obstructive sleep apnea (adult) (pediatric) Primary hypertension Unspecified essential hypertension Morbid obesity [place] [place] Morbid obesity Well woman exam with routine gynecological exam- Primary Routine gynecological examination Morbid obesity [place] [place] Morbid obesity Metabolic encephalopathy- Primary OSMANY (obstructive sleep apnea) Obstructive sleep apnea (adult) (pediatric) Morbid obesity [place] [place] Morbid obesity Bilateral lower extremity edema Tobacco dependence Tobacco use disorder Bipolar disorder with severe depression ([facility]) At risk for polypharmacy Anxiety Anxiety state, unspecified Primary hypertension Unspecified essential hypertension Right bundle branch block (RBBB) determined by electrocardiography Primary hypertension- Primary Unspecified essential hypertension Chronic kidney disease, stage 3a [place] [place] Morbid (severe) obesity due to excess calories [place] [place] Body mass index (BMI) 45.0-49.9, adult [place] [place] OSMANY (obstructive sleep apnea) Obstructive sleep apnea (adult) (pediatric) Hemiparesis, right ([facility]) Unspecified hemiplegia affecting unspecified side Gastroesophageal reflux disease, unspecified whether esophagitis present Metabolic encephalopathy Essential (primary) hypertension Unspecified essential hypertension Allergic rhinitis, unspecified Gastro-esophageal reflux disease without esophagitis Bilateral lower extremity edema Primary hypertension- Primary Unspecified essential hypertension Morbid (severe) obesity due to excess calories ([facility] [place] Essential (primary) hypertension Unspecified essential hypertension Allergic rhinitis, unspecified Gastro-esophageal reflux disease without esophagitis Bilateral lower extremity edema Bronchitis Bronchitis, not specified as acute or chronic Primary hypertension- Primary Unspecified essential hypertension Bronchitis Bronchitis, not specified as acute or chronic Bilateral lower extremity edema Morbid (severe) obesity due to excess calories [place] [place] Pre-diabetes Other [...] Primary osteoarthritis of right knee Morbid obesity [place] [place] Morbid obesity documented in this encounter [facility] HealthcareEvaluation note* Diagnosis Encounter for annual wellness visit (AWV) in Medicare patient- Primary OSMANY (obstructive sleep apnea) Obstructive sleep apnea (adult) (pediatric) Chronic pain disorder Chronic pain syndrome Gastroesophageal reflux disease, unspecified whether esophagitis present Overactive bladder Hypertonicity of bladder Lower extremity edema Edema Pre-diabetes Other abnormal glucose Morbid obesity ([facility]) Morbid obesity Yeast infection of the [...] Candidiasis of skin and nails Morbid obesity ([facility]) Morbid obesity Primary hypertension- Primary Unspecified essential hypertension Allergic rhinitis, unspecified Acute cough Morbid obesity [place] [place] Morbid obesity Former cigarette smoker Personal history of tobacco use, presenting hazards to health Toxic metabolic encephalopathy- Primary Hemiparesis, right (HCC) Unspecified hemiplegia affecting unspecified side Acute respiratory failure with hypoxia ([facility]) Heart murmur Undiagnosed cardiac murmurs Primary hypertension Unspecified essential hypertension Morbid obesity ([facility]) Morbid obesity Bipolar disorder with severe depression ([facility]) Slurred speech Other speech disturbance Bilateral lower extremity edema- Primary Primary hypertension Unspecified essential hypertension Lower extremity edema Edema Essential (primary) hypertension Unspecified essential hypertension Gastro-esophageal reflux disease without esophagitis Allergic rhinitis, unspecified Bilateral lower extremity edema- Primary Morbid (severe) obesity due to excess calories [place] [place] Body mass index (BMI) 45.0-49.9, adult [place] [place] Pre-diabetes Other abnormal glucose Bilateral lower extremity edema- Primary Essential (primary) hypertension Unspecified essential hypertension Allergic rhinitis, unspecified OSMANY (obstructive sleep apnea) Obstructive sleep apnea (adult) (pediatric) Primary hypertension Unspecified essential hypertension Morbid obesity ([facility]) Morbid obesity Well woman exam with routine gynecological exam- Primary Routine gynecological examination Morbid obesity [place] [place] Morbid obesity Metabolic encephalopathy- Primary OSMANY (obstructive sleep apnea) Obstructive sleep apnea (adult) (pediatric) Morbid obesity ([facility] [place] Morbid obesity Bilateral lower extremity edema Tobacco dependence Tobacco use disorder Bipolar disorder with severe depression ([facility]) At risk for polypharmacy Anxiety Anxiety state, unspecified Primary hypertension Unspecified essential hypertension Right bundle branch block (RBBB) determined by electrocardiography Primary hypertension- Primary Unspecified essential hypertension Chronic kidney disease, stage 3a [place] [place] Morbid (severe) obesity due to excess calories [place] [place] Body mass index (BMI) 45.0-49.9, adult [place] [place] OSMANY (obstructive sleep apnea) Obstructive sleep apnea (adult) (pediatric) Hemiparesis, right ([facility]) Unspecified hemiplegia affecting unspecified side Gastroesophageal reflux disease, unspecified whether esophagitis present Metabolic encephalopathy Essential (primary) hypertension Unspecified essential hypertension Allergic rhinitis, unspecified Gastro-esophageal reflux disease without esophagitis Bilateral lower extremity edema Primary hypertension- Primary Unspecified essential hypertension Morbid (severe) obesity due to excess calories [place] [place] Essential (primary) hypertension Unspecified essential hypertension Allergic rhinitis, unspecified Gastro-esophageal reflux disease without esophagitis Bilateral lower extremity edema Bronchitis Bronchitis, not specified as acute or chronic Primary hypertension- Primary Unspecified essential hypertension Bronchitis Bronchitis, not specified as acute or chronic Bilateral lower extremity edema Morbid (severe) obesity due to excess calories [place] [place] Pre-diabetes Other [...] Morbid (severe) obesity due to excess calories [place] [place] Primary hypertension Unspecified essential hypertension Anemia, unspecified type Bilateral lower extremity edema Osteoporosis, unspecified osteoporosis type, unspecified pathological fracture presence Chronic kidney disease, stage 3a [place] [place] Pre-diabetes Other abnormal glucose documented in this encounter [facility] HealthcareEvaluation note* Diagnosis Encounter for annual wellness visit (AWV) in Medicare patient- Primary OSMANY (obstructive sleep apnea) Obstructive sleep apnea (adult) (pediatric) Chronic pain disorder Chronic pain syndrome Gastroesophageal reflux disease, unspecified whether esophagitis present Overactive bladder Hypertonicity of bladder Lower extremity edema Edema Pre-diabetes Other abnormal glucose Morbid obesity ([facility]) Morbid obesity Yeast infection of the [...] Candidiasis of skin and nails Morbid obesity ([facility]) Morbid obesity Primary hypertension- Primary Unspecified essential hypertension Allergic rhinitis, unspecified Acute cough Morbid obesity ([facility]) Morbid obesity Former cigarette smoker Personal history of tobacco use, presenting hazards to health Toxic metabolic encephalopathy- Primary Hemiparesis, right ([facility]) Unspecified hemiplegia affecting unspecified side Acute respiratory failure with hypoxia ([facility]) Heart murmur Undiagnosed cardiac murmurs Primary hypertension Unspecified essential hypertension Morbid obesity [place] Morbid obesity Bipolar disorder with severe depression ([facility]) Slurred speech Other speech disturbance Bilateral lower extremity edema- Primary Primary hypertension Unspecified essential hypertension Lower extremity edema Edema Essential (primary) hypertension Unspecified essential hypertension Gastro-esophageal reflux disease without esophagitis Allergic rhinitis, unspecified Bilateral lower extremity edema- Primary Morbid (severe) obesity due to excess calories [place] Body mass index (BMI) 45.0-49.9, adult [place] Pre-diabetes Other abnormal glucose Bilateral lower extremity edema- Primary Essential (primary) hypertension Unspecified essential hypertension Allergic rhinitis, unspecified OSMANY (obstructive sleep apnea) Obstructive sleep apnea (adult) (pediatric) Primary hypertension Unspecified essential hypertension Morbid obesity [place] Morbid obesity Well woman exam with routine gynecological exam- Primary Routine gynecological examination Morbid obesity [place] Morbid obesity Metabolic encephalopathy- Primary OSMANY (obstructive sleep apnea) Obstructive sleep apnea (adult) (pediatric) Morbid obesity ([facility]) Morbid obesity Bilateral lower extremity edema Tobacco dependence Tobacco use disorder Bipolar disorder with severe depression ([facility]) At risk for polypharmacy Anxiety Anxiety state, unspecified Primary hypertension Unspecified essential hypertension Right bundle branch block (RBBB) determined by electrocardiography Primary hypertension- Primary Unspecified essential hypertension Chronic kidney disease, stage 3a [place] Morbid (severe) obesity due to excess calories [place] Body mass index (BMI) 45.0-49.9, adult [place] OSMANY (obstructive sleep apnea) Obstructive sleep apnea (adult) (pediatric) Hemiparesis, right ([facility]) Unspecified hemiplegia affecting unspecified side Gastroesophageal reflux disease, unspecified whether esophagitis present Metabolic encephalopathy Essential (primary) hypertension Unspecified essential hypertension Allergic rhinitis, unspecified Gastro-esophageal reflux disease without esophagitis Bilateral lower extremity edema Primary hypertension- Primary Unspecified essential hypertension Morbid (severe) obesity due to excess calories [place] Essential (primary) hypertension Unspecified essential hypertension Allergic rhinitis, unspecified Gastro-esophageal reflux disease without esophagitis Bilateral lower extremity edema Bronchitis Bronchitis, not specified as acute or chronic Primary hypertension- Primary Unspecified essential hypertension Bronchitis Bronchitis, not specified as acute or chronic Bilateral lower extremity edema Morbid (severe) obesity due to excess calories [place] Pre-diabetes Other [...] Morbid (severe) obesity due to excess calories [place] Primary hypertension Unspecified essential hypertension Anemia, unspecified type Bilateral lower extremity edema Osteoporosis, unspecified osteoporosis type, unspecified pathological fracture presence Chronic kidney disease, stage 3a [place] Pre-diabetes Other abnormal glucose Acute medial meniscus tear of right knee, initial encounter- Primary Chronic pain of right knee Morbid obesity [place] Morbid obesity Primary osteoarthritis of right knee Preoperative testing Unspecified pre-operative examination documented in this encounter [facility] Diagnosis Encounter for annual wellness visit (AWV) in Medicare patient- Primary OSMANY (obstructive sleep apnea) Obstructive sleep apnea (adult) (pediatric) Chronic pain disorder Chronic pain syndrome Gastroesophageal reflux disease, unspecified whether esophagitis present Overactive bladder Hypertonicity of bladder Lower extremity edema Edema Pre-diabetes Other abnormal glucose Morbid obesity [place] Morbid obesity Yeast infection [...] Candidiasis of skin and nails Morbid obesity ([facility] Morbid obesity Primary hypertension- Primary Unspecified essential hypertension Allergic rhinitis, unspecified Acute cough Morbid obesity [place] Morbid obesity Former cigarette smoker Personal history of tobacco use, presenting hazards to health Toxic metabolic encephalopathy- Primary Hemiparesis, right (HCC) Unspecified hemiplegia affecting unspecified side Acute respiratory failure with hypoxia ([facility]) Heart murmur Undiagnosed cardiac murmurs Primary hypertension Unspecified essential hypertension Morbid obesity ([facility]) Morbid obesity Bipolar disorder with severe depression ([facility]) Slurred speech Other speech disturbance Bilateral lower extremity edema- Primary Primary hypertension Unspecified essential hypertension Lower extremity edema Edema Essential (primary) hypertension Unspecified essential hypertension Gastro-esophageal reflux disease without esophagitis Allergic rhinitis, unspecified Bilateral lower extremity edema- Primary Morbid (severe) obesity due to excess calories [place] Body mass index (BMI) 45.0-49.9, adult [place] Pre-diabetes Other abnormal glucose Bilateral lower extremity edema- Primary Essential (primary) hypertension Unspecified essential hypertension Allergic rhinitis, unspecified OSMANY (obstructive sleep apnea) Obstructive sleep apnea (adult) (pediatric) Primary hypertension Unspecified essential hypertension Morbid obesity [place] Morbid obesity Well woman exam with routine gynecological exam- Primary Routine gynecological examination Morbid obesity [place] Morbid obesity Metabolic encephalopathy- Primary OSMANY (obstructive sleep apnea) Obstructive sleep apnea (adult) (pediatric) Morbid obesity [place] Morbid obesity Bilateral lower extremity edema Tobacco dependence Tobacco use disorder Bipolar disorder with severe depression ([facility]) At risk for polypharmacy Anxiety Anxiety state, unspecified Primary hypertension Unspecified essential hypertension Right bundle branch block (RBBB) determined by electrocardiography Primary hypertension- Primary Unspecified essential hypertension Chronic kidney disease, stage 3a [place] Morbid (severe) obesity due to excess calories [place] Body mass index (BMI) 45.0-49.9, adult [place] OSMANY (obstructive sleep apnea) Obstructive sleep apnea (adult) (pediatric) Hemiparesis, right (HCC) Unspecified hemiplegia affecting unspecified side Gastroesophageal reflux disease, unspecified whether esophagitis present Metabolic encephalopathy Essential (primary) hypertension Unspecified essential hypertension Allergic rhinitis, unspecified Gastro-esophageal reflux disease without esophagitis Bilateral lower extremity edema Primary hypertension- Primary Unspecified essential hypertension Morbid (severe) obesity due to excess calories ([facility]) Essential (primary) hypertension Unspecified essential hypertension Allergic rhinitis, unspecified Gastro-esophageal reflux disease without esophagitis Bilateral lower extremity edema Bronchitis Bronchitis, not specified as acute or chronic Primary hypertension- Primary Unspecified essential hypertension Bronchitis Bronchitis, not specified as acute or chronic Bilateral lower extremity edema Morbid (severe) obesity due to excess calories ([facility]) Pre-diabetes Other abnormal glucose Allergic rhinitis, [...] Morbid (severe) obesity due to excess calories ([facility]) Primary hypertension Unspecified essential hypertension Anemia, unspecified type Bilateral lower extremity edema Osteoporosis, unspecified osteoporosis type, unspecified pathological fracture presence Chronic kidney disease, stage 3a ([facility]) Pre-diabetes Other abnormal glucose Primary osteoarthritis [...] Edema Pre-diabetes Other abnormal glucose Morbid obesity ([facility]) Morbid obesity Yeast infection of the skin [...] Candidiasis of skin and nails Morbid obesity ([facility]) Morbid obesity Primary hypertension- Primary Unspecified essential hypertension Allergic rhinitis, unspecified Acute cough Morbid obesity ([facility]) Morbid obesity Former cigarette smoker Personal history of tobacco use, presenting hazards to health Toxic metabolic encephalopathy- Primary Hemiparesis, right (HCC) Unspecified hemiplegia affecting unspecified side Acute respiratory failure with hypoxia (HCC) Heart murmur Undiagnosed cardiac murmurs Primary hypertension Unspecified essential hypertension Morbid obesity ([facility]) Morbid obesity Bipolar disorder with severe depression ([facility]) Slurred speech Other speech disturbance Bilateral lower extremity edema- Primary Primary hypertension Unspecified essential hypertension Lower extremity edema Edema Essential (primary) hypertension Unspecified essential hypertension Gastro-esophageal reflux disease without esophagitis Allergic rhinitis, unspecified Bilateral lower extremity edema- Primary Morbid (severe) obesity due to excess calories [place] Body mass index (BMI) 45.0-49.9, adult [place] Pre-diabetes Other abnormal glucose Bilateral lower extremity edema- Primary Essential (primary) hypertension Unspecified essential hypertension Allergic rhinitis, unspecified OSMANY (obstructive sleep apnea) Obstructive sleep apnea (adult) (pediatric) Primary hypertension Unspecified essential hypertension Morbid obesity [place] Morbid obesity Well woman exam with routine gynecological exam- Primary Routine gynecological examination Morbid obesity [place] Morbid obesity Metabolic encephalopathy- Primary OSMANY (obstructive sleep apnea) Obstructive sleep apnea (adult) (pediatric) Morbid obesity [place] Morbid obesity Bilateral lower extremity edema Tobacco dependence Tobacco use disorder Bipolar disorder with severe depression ([facility]) At risk for polypharmacy Anxiety Anxiety state, unspecified Primary hypertension Unspecified essential hypertension Right bundle branch block (RBBB) determined by electrocardiography Primary hypertension- Primary Unspecified essential hypertension Chronic kidney disease, stage 3a [place] Morbid (severe) obesity due to excess calories [place] Body mass index (BMI) 45.0-49.9, adult [place] OSMANY (obstructive sleep apnea) Obstructive sleep apnea (adult) (pediatric) Hemiparesis, right (HCC) Unspecified hemiplegia affecting unspecified side Gastroesophageal reflux disease, unspecified whether esophagitis present Metabolic encephalopathy Essential (primary) hypertension Unspecified essential hypertension Allergic rhinitis, unspecified Gastro-esophageal reflux disease without esophagitis Bilateral lower extremity edema Primary hypertension- Primary Unspecified essential hypertension Morbid (severe) obesity due to excess calories [place] Essential (primary) hypertension Unspecified essential hypertension Allergic rhinitis, unspecified Gastro-esophageal reflux disease without esophagitis Bilateral lower extremity edema Bronchitis Bronchitis, not specified as acute or chronic Primary hypertension- Primary Unspecified essential hypertension Bronchitis Bronchitis, not specified as acute or chronic Bilateral lower extremity edema Morbid (severe) obesity due to excess calories [place] Pre-diabetes Other [...] (severe) obesity due to excess calories ([facility]) Primary hypertension Unspecified essential hypertension Anemia, unspecified type Bilateral lower extremity edema Osteoporosis, unspecified osteoporosis type, unspecified pathological fracture presence Chronic kidney disease, stage 3a ([facility]) Pre-diabetes Other abnormal glucose Status post arthroscopic surgery of right knee- Primary Other postprocedural status documented in this encounter [facility] Author Jace Graham [facility] March 23, 2023 11:21am Note Date/Time March 23, 2023 11:21am [facility] [address] [place] [address] Gastroenterology H&P Signed Patient: Michelle Be MR#: [id number] : 1960 Acct:[id number] Age/Sex: 62 / F Adm Date: 3 [...] the procedure. Jace Graham MD Documented By: Jaec Graham MD 03/23/231120 Signed By: <Electronically signed by Jace Graham MD> 03/23/23 112 [facility] Work Phone: History general Narrative - [...] see above surg Hospitalization History stroke 2018 [employer] Other Hospital Discharge instructions Additional Instructions Regular Diet No Activity [facility]ions[facility] Work Phone: Hospital Discharge instructions Additional [...] years. -Follow up with PCP. -Office number [phone].[facility] Work Phone: Reason for visit Narrative* Consultation (Routine) - Closed Specialty Diagnoses / Procedures Referred By Radha t Referred To Contact Neuropsychology Diagnoses Memory change Procedures [place] OFFICE/OUTPATIENT [facility] Juany Leggett PA [address] [place] [address] Phone: tel: fax: David Foster, PhD [address] [address] Phone: tel: fax: Referral ID Status Reason Start Date Expiration Date V isits Requested Visits Authorized [id number] Closed Specialty Services Required 03/07/2024 09/03/2024 1 [...] Documents on File Type Date Recorded 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 Power of Diamond Die Maker 03/10/2024 3:12 PM POA Documents on File Type Date Recorded 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 Power of Diamond Die Maker 03/10/2024 3:12 PM POA Documents on File Type Date Recorded 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 Power of Diamond Die Maker 03/16/2024 9:42 AM darian r of optical technician Power of Diamond Die Maker 03/10/2024 3:12 PM POA Documents on File Type Date Recorded 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 Power of Diamond Die Maker 03/16/2024 9:42 AM darian r of optical technician Power of Diamond Die Maker 03/10/2024 3:12 PM POA Chief Complaint and Reason for Visit Chief Complaint Bipolar Depression Reason for Visit Allergies Bipolar 2 disorder Hypertension Morbid obesity with BMI of 45.0-49.9, adult OSMANY (obstructive sleep apnea) Restless legs syndrome Chief Complaint Screening Additional Source Comments INFORMATION SOURCE (unrecogn ized section and content) DATE CREATED AUTHOR 02/18/2019 [facility] DATE CREATED AUTHOR AUTHOR'S ORGANIZ ATION 11/15/2021 [facility] DATE CREATED AUTHOR AUTHOR'S ORGANIZ ATION 08/16/[address] [facility] DATE CREATED AUTHOR AUTHOR'S ORGANIZ ATION 10/09/2024 [facility] DATE CREATED AUTHOR AUTHOR'S ORGANIZ ATION 12/21/2024 [facility] DATE CREATED AUTHOR AUTHOR'S ORGANIZ ATION 12/26/2024 [facility] DATE CREATED AUTHOR AUTHOR'S ORGANIZ ATION 01/14/2025 [facility] Care Teams (unrecognized sec tion and content) Team Status: Active Member Role Status Dates Adelaida Carrion Primary Care Provider Active Team Status: Inactive Member Role Status Dates Adelaida Carrion Primary Care Provider Active Gaudencio Monk MD Admit Provider, Attending Pr ovider Active Andreina Vieira RN Other Provider Active Camilla Gearheart , RN Other Provider Active Ruchi Hurtado , RN Other Provider Active Lisa Crooks , RN Other Provider Active Tash Mejias , JOHANN Other Provider Active Elzbieta Kim , JOHANN Other Provider Active Walker Pringle MD Other Provider Active Adelaida Marsh , EQUIPMENT ENGINEER Other Provider Active Jessica Murillo , DO Other Provider Active Obdulio Bragg MD Other Provider Active Joon Cristina , DO Other Provider Active Torin Robert MD Other Provider Active Dawn Barrera MD Other Provider Active Mari Soler , ANP-BC Other Provider Active Sofi Almanzar MD Other Provider Active Sharad Gallegos MD Other Provider Active Ayb Cain MD Other Provider Active Hillary Carrera MD Other Provider Active Julio César Mckeon , DO Other Provider Active Valentine Mak MD Other Provider Active Raymond Strong MD Other Provider Active Joellen Le , INTERN-C Other Provider Active Severo Yancey MD Other Provider Active Rao Webber MD Other Provider Active Yuan Shi MD Other Provider Active Delroy Ramirez MD Other Provider Active Berta Comer , DO Other Provider Active Negrito Ruiz , DO Other Provider Active Lacho Singh , DO Other Provider Active Rachana Hobson EQUIPMENT ENGINEER Other Provider Active Rob Lake , DO Other Provider Active Jeff Alvarez MD Other Provider Active Urmila Rinaldi , EQUIPMENT ENGINEER Other Provider Active Bina Mayberry , EQUIPMENT ENGINEER Other Provider Active Mir Bradford MD Other Provider Active Te Da Silva MD Other Provider Active Debra Landaverde , JOHANN Other Provider Active Team Status: Inactive Member Role Status Dates Adelaida Carrion Primary Care Provider Active Jace Graham MD Attending Provider Active Sewer Pipe Offbearer Relationship Specialty Start Date End Date José Luis Roberts MD [address] [place] [address] PCP - General Family Medicine 05/18/23 Adelaida Carrion NP [address] [place] [address] Referring Physician Nurse Practitioner 10/14/22 Sewer Pipe Offbearer Relationship Specialty Start Date End Date José Luis Roberts MD [address] [place] [address] PCP - General Family Medicine 05/18/23 Adelaida Carrion NP [address] [place] [address] Referring Physician Nurse Practitioner 10/14/22 Sewer Pipe Offbearer Relationship Specialty Start Date End Date José Luis Roberts MD [address] [place] [address] PCP - General Family Medicine 05/18/23 Adelaida Carrion NP [address] [place] [address] Referring Physician Nurse Practitioner 10/14/22 Sewer Pipe Offbearer Relationship Specialty Start Date End Date José Luis Roberts MD [address] [place] [address] PCP - General Family Medicine 05/18/23 Adelaida Carrion NP Referring Physician Nurse Practitioner 10/14/22 Miriam Suarez DO [address] [place] [address] Referring Physician Neurology 06/29/23 [place] LPN Licensed Practical Nurse Family Medicine 12/18/23 Sewer Pipe Offbearer Relationship Specialty Start Date End Date José Luis Roberts MD [address] [place] [address] PCP - General Family Medicine 05/18/23 Adelaida Carrion, BRIANA Referring Physician Nurse Practitioner 10/14/22 Miriam Suarez DO [address] [place] [address] Referring Physician Neurology 06/29/23 [place] LPN Licensed Practical Nurse Family Medicine 12/18/23 Sewer Pipe Offbearer Relationship Specialty Start Date End Date Unallocated, Geeta Sierra MD [address] [place] [address] PCP - General Family Medicine 01/27/24 Miriam Suarez DO [address] [place] [address] Referring Physician Neurology 06/29/23 [place] LPN Licensed Practical Nurse Family Medicine 12/18/23 Adelaida Carrion, BRIANA [address] [place] [address] Nurse Practitioner Family Medicine 01/27/24 Sewer Pipe Offbearer Relationship Specialty Start Date End Date Unallocated, Geeta Sierra MD [address] [place] [address] PCP - General Family Medicine 01/27/24 Miriam Suarez DO [address] [place] [address] Referring Physician Neurology 06/29/23 [place] LPN Licensed Practical Nurse Family Medicine 12/18/23 Adelaida Carrion, BRIANA [address] [place] [address] Nurse Practitioner Family Medicine 01/27/24 Sewer Pipe Offbearer Relationship Specialty Start Date End Date José Luis Roberts MD [address] [place] [address] PCP - General Family Medicine 02/02/24 Miriam Suarez DO [address] [place], [place] [id number] Referring Physician Neurology 06/29/23 [place] LPN Licensed Practical Nurse Family Medicine 12/18/23 Adelaida Carrion NP [address] [place] [address] Nurse Practitioner Family Medicine 01/27/24 Sewer Pipe Offbearer Relationship Specialty Start Date End Date José Luis Roberts MD [address] [place] [address] PCP - General Family Medicine 02/02/24 Miriam Suarez DO [address] [place], [place] [address] Referring Physician Neurology 06/29/23 Adelaida Carrion NP [address] [place] [address] Nurse Practitioner Family Medicine 01/27/24 Bong Rosado MA Family Medicine 02/12/24 Sewer Pipe Offbearer Relationship Specialty Start Date End Date José Luis Roberts MD [address] [place] [address] PCP - General Family Medicine 02/02/24 Miriam Suarez DO [address] [place] [address] Referring Physician Neurology 06/29/23 Adelaida Carrion NP [address] [place] [address] Nurse Practitioner Family Medicine 01/27/24 Bong Rosado MA Family Medicine 02/12/24 Sewer Pipe Offbearer Relationship Specialty Start Date End Date José Luis Roberts MD [address] [place] [address] PCP - General Family Medicine 02/02/24 Miriam Suarez DO [address] [place] [address] Referring Physician Neurology 06/29/23 Adelaida Carrion NP [address] [place] [address] Nurse Practitioner Family Medicine 01/27/24 Bong Rosado MA Family Medicine 02/12/24 Sewer Pipe Offbearer Relationship Specialty Start Date End Date José Luis Roberts MD [address] [place] [address] PCP - General Family Medicine 02/02/24 Miriam Suarez DO [address] [place] [address] Referring Physician Neurology 06/29/23 Adelaida Carrion NP [address] [place] [address] Nurse Practitioner Family Medicine 01/27/24 Bong Rosado MA Family Medicine 02/12/24 Sewer Pipe Offbearer Relationship Specialty Start Date End Date José Luis Roberts MD [address] [place] [address] PCP - General Family Medicine 02/02/24 Miriam Suarez DO [address] [place] [id number] Referring Physician Neurology 06/29/23 Adelaida Carrion NP [address] [place] [address] Nurse Practitioner Family Medicine 01/27/24 Bong Rosado MA Family Medicine 02/12/24 Sewer Pipe Offbearer Relationship Specialty Start Date End Date José Luis Roberts MD [address] [place] [address] PCP - General Family Medicine 02/02/24 Miriam Suarez DO [address] [place], [place] [id number] Referring Physician Neurology 06/29/23 Adelaida Carrion NP [address] [place] [address]10[address] Nurse Practitioner Family Medicine 01/27/24 Bong Rosado MA Family Medicine 02/12/24 Sewer Pipe Offbearer Relationship Specialty Start Date End Date José Luis Roberts MD [address] [place] [address]68[address] PCP - General Family Medicine 02/02/24 Miriam Suarez DO [address] [place] [address] Referring Physician Neurology 06/29/23 Adelaida Carrion NP [address] [place] [address] Nurse Practitioner Family Medicine 01/27/24 Bong Rosado MA Family Medicine 02/12/24 Sewer Pipe Offbearer Relationship Specialty Start Date End Date José Luis Roberts MD [address] [place] [address] PCP - General Family Medicine 02/02/24 Miriam Suarez DO [address] [place] [address] Referring Physician Neurology 06/29/23 Adelaida Carrion NP [address] [place] [address] Nurse Practitioner Family Medicine 01/27/24 Bong Rosado MA Family Medicine 02/12/24 Sewer Pipe Offbearer Relationship Specialty Start Date End Date José Luis Roberts MD [address] [place] [address] PCP - General Family Medicine 02/02/24 Miriam Suarez DO [address] [place] [address] Referring Physician Neurology 06/29/23 Adelaida Carrion NP [address] [place] [address] Nurse Practitioner Family Medicine 01/27/24 Bong Rosado MA Family Medicine 02/12/24 Sewer Pipe Offbearer Relationship Specialty Start Date End Date José Luis Roberts MD [address] [place] [address] PCP - General Family Medicine 02/02/24 Miriam Suarez DO [address] [place], [place] [address] Referring Physician Neurology 06/29/23 Adelaida Carrion NP [address] [place] [address] Nurse Practitioner Family Medicine 01/27/24 Bong Rosado MA Family Medicine 02/12/24 Sewer Pipe Offbearer Relationship Specialty Start Date End Date José Luis Roberts MD [address] [place] [address]10[address] PCP - General Family Medicine 02/02/24 Miriam Suarez DO [address] [place], [place] 060[address] Referring Physician Neurology 06/29/23 Adelaida Carrion NP [address] [place] [address]10[address] Nurse Practitioner Family Medicine 01/27/24 Bong Rosado MA Family Medicine 02/12/24 Sewer Pipe Offbearer Relationship Specialty Start Date End Date José Luis Roberts MD [address] [place] [address] PCP - General Family Medicine 05/18/23 Adelaida Carrion NP Referring Physician Nurse Practitioner 10/14/22 Miriam Suarez DO [address] [place] [address] Referring Physician Neurology 06/29/23 Mathew Parra LPN Licensed Practical Nurse Family Medicine 07/23/23 Sewer Pipe Offbearer Relationship Specialty Start Date End Date José Luis Roberts MD [address] [place] [address] PCP - General Family Medicine 05/18/23 Adelaida Carrion NP Referring Physician Nurse Practitioner 10/14/22 Miriam Suarez DO [address] [place] [address] Referring Physician Neurology 06/29/23 Mathew Parra LPN Licensed Practical Nurse Family Medicine 07/23/23 Sewer Pipe Offbearer Relationship Specialty Start Date End Date José Luis Roberts MD [address] [place] [address] PCP - General Family Medicine 05/18/23 Adelaida Carrion NP Referring Physician Nurse Practitioner 10/14/22 Miriam Suarez DO [address] [place] [address] Referring Physician Neurology 06/29/23 Mathew Parra LPN Licensed Practical Nurse Family Medicine 07/23/23 Sewer Pipe Offbearer Relationship Specialty Start Date End Date José Luis Roberts MD [address] [place] [address] PCP - General Family Medicine 05/18/23 Adelaida Carrion NP Referring Physician Nurse Practitioner 10/14/22 Miriam Suarez DO [address] [place], [place] 079[address] Referring Physician Neurology 06/29/23 Mathew Parra LPN Licensed Practical Nurse Family Medicine 07/23/23 Sewer Pipe Offbearer Relationship Specialty Start Date End Date José Luis Roberts MD [address] [place] [address] PCP - General Family Medicine 05/18/23 Adelaida Carrion NP Referring Physician Nurse Practitioner 10/14/22 Miriam Suarez DO [address] [place] [address] Referring Physician Neurology 06/29/23 [place] LPN Licensed Practical Nurse Family Medicine 12/18/23 Sewer Pipe Offbearer Relationship Specialty Start Date End Date José Luis Roberts MD [address] [place] [address] PCP - General Family Medicine 05/18/23 Adelaida Carrion NP Referring Physician Nurse Practitioner 10/14/22 Miriam Suarez DO [address] [place] [address] Referring Physician Neurology 06/29/23 [place] LPN Licensed Practical Nurse Family Medicine 12/18/23 Sewer Pipe Offbearer Relationship Specialty Start Date End Date José Luis Roberts MD [address] [place] [address] PCP - General Family Medicine 05/18/23 Adelaida Carrion NP Referring Physician Nurse Practitioner 10/14/22 Miriam Suarez DO [address] [place] [address] Referring Physician Neurology 06/29/23 [place] LPN Licensed Practical Nurse Family Medicine 12/18/23 Sewer Pipe Offbearer Relationship Specialty Start Date End Date José Luis Roberts MD [address] [place] [address] PCP - General Family Medicine 02/02/24 Miriam Suarez DO [address] [place] [address] Referring Physician Neurology 06/29/23 Adelaida Carrion NP [address] [place] [address] Nurse Practitioner Family Medicine 01/27/24 Bong Rosado MA Family Medicine 02/12/24 Sewer Pipe Offbearer Relationship Specialty Start Date End Date José Luis Roberts MD [address] [place] [address] PCP - General Family Medicine 02/02/24 Miriam Suarez DO [address] [place] [address] Referring Physician Neurology 06/29/23 Adelaida Carrion NP [address] [place] [address] Nurse Practitioner Family Medicine 01/27/24 Bong Rosado MA Family Medicine 02/12/24 Sewer Pipe Offbearer Relationship Specialty Start Date End Date José Luis Roberts MD [address] [place] [address] PCP - General Family Medicine 02/02/24 Miriam Suarez DO [address] [place], [place] [address] Referring Physician Neurology 06/29/23 Adelaida Carrion, BRIANA [address] [place] [address] Nurse Practitioner Family Medicine 01/27/24 Bong Rosado MA Family Medicine 02/12/24 Sewer Pipe Offbearer Relationship Specialty Start Date End Date José Luis Roberts MD [address] [place] [address] PCP - General Family Medicine 02/02/24 Miriam Suarez DO [address] [place], [place] 417[address] Referring Physician Neurology 06/29/23 Adelaida Carrion NP [address] [place] [address] Nurse Practitioner Family Medicine 01/27/24 Bong Rosado MA Family Medicine 02/12/24 Sewer Pipe Offbearer Relationship Specialty Start Date End Date José Luis Roberts MD [address] [place] [address] PCP - General Family Medicine 02/02/24 Miriam Suarez DO [address] [place], [place] 78[address] Referring Physician Neurology 06/29/23 Adelaida Carrion NP [address] [place] [address] Nurse Practitioner Family Medicine 01/27/24 Bong Rosado MA Family Medicine 02/12/24 Sewer Pipe Offbearer Relationship Specialty Start Date End Date José Luis Roberts MD [address] [place] [address] PCP - General Family Medicine 02/02/24 Miriam Suarez DO [address] [place] [address] Referring Physician Neurology 06/29/23 Adelaida Carrion NP [address] [place] [address] Nurse Practitioner Family Medicine 01/27/24 Bong Rosado MA Family Medicine 02/12/24 Sewer Pipe Offbearer Relationship Specialty Start Date End Date José Luis Roberts MD [address] [place] [address] PCP - General Family Medicine 02/02/24 Miriam Suarez DO [address] [place] [address] Referring Physician Neurology 06/29/23 Adelaida Carrion, BRIANA [address] [place] [address] Nurse Practitioner Family Medicine 01/27/24 Bong Rosado MA Family Medicine 02/12/24 Juany Leggett PA [address] [place], [place] [address] Physician Fishing Line Winding Machine Operator Neurology 07/26/24 Sewer Pipe Offbearer Relationship Specialty Start Date End Date José Luis Roberts MD [address] [place] [address]10[address] PCP - General Family Medicine 02/02/24 Miriam Suarez DO [address] [place], [place] 520[address] Referring Physician Neurology 06/29/23 Adelaida Carrion, BRIANA [address] [place] [address] Nurse Practitioner Family Medicine 01/27/24 Bong Rosado MA Family Medicine 02/12/24 Juany Leggett PA [address] [place], [place] [address] Physician Fishing Line Winding Machine Operator Neurology 07/26/24 Sewer Pipe Offbearer Relationship Specialty Start Date End Date José Luis Roberts MD [address] [place] [address]10[address] PCP - General Family Medicine 02/02/24 Miriam Suarez DO [address] [place] [address] Referring Physician Neurology 06/29/23 Adelaida Carrion, BRIANA [address] [place] [address]10[address] Nurse Practitioner Family Medicine 01/27/24 Bong Rosado MA Family Medicine 02/12/24 Juany Leggett PA [address] [place], [place] [address] Physician Fishing Line Winding Machine Operator Neurology 07/26/24 Sewer Pipe Offbearer Relationship Specialty Start Date End Date José Luis Roberts MD [address] [place] [address]10[address] PCP - General Family Medicine 02/02/24 Miriam Suarez DO [address] [place], [place] 443[address] Referring Physician Neurology 06/29/23 Adelaida Carrino, BRIANA [address] [place] [address] Nurse Practitioner Family Medicine 01/27/24 Bong Rosado MA Family Medicine 02/12/24 Juany Leggett PA [address] [place], [place] 19[address] Physician Fishing Line Winding Machine Operator Neurology 07/26/24 Sewer Pipe Offbearer Relationship Specialty Start Date End Date José Luis Roberts MD [address] [place] [address]639810[address] PCP - General Family Medicine 02/02/24 Miriam Suarez DO [address] [place] [address] Referring Physician Neurology 06/29/23 Adelaida Carrion NP [address] [place] [address]10[address] Nurse Practitioner Family Medicine 01/27/24 Bong Rosado MA Family Medicine 02/12/24 Juany Leggett PA [address] [place] [address] Physician Fishing Line Winding Machine Operator Neurology 07/26/24 Sewer Pipe Offbearer Relationship Specialty Start Date End Date José Luis Roberts MD [address] [place] [address] PCP - General Family Medicine 02/02/24 Miriam Suarez DO [address] [place] [address] Referring Physician Neurology 06/29/23 Adelaida Carrion NP [address] [place] [address] Nurse Practitioner Family Medicine 01/27/24 Bong Rosado MA Family Medicine 02/12/24 Juany Leggett PA [address] [place], [place] [address]27[address] Physician Fishing Line Winding Machine Operator Neurology 07/26/24 Sewer Pipe Offbearer Relationship Specialty Start Date End Date José Luis Roberts MD [address] [place] [address] PCP - General Family Medicine 02/02/24 Miriam Suarez DO [address] [place], [place] 0938[address] Referring Physician Neurology 06/29/23 Adelaida Carrion NP [address] [place] [address]10[address] Nurse Practitioner Family Medicine 01/27/24 Bong Rosado MA [address] [place] [address] Family Medicine 02/12/24 Juany Leggett PA [address] [place] [address] Physician Fishing Line Winding Machine Operator Neurology 07/26/24 Sewer Pipe Offbearer Relationship Specialty Start Date End Date José Luis Roberts MD [address] [place] [address] PCP - General Family Medicine 02/02/24 Miriam Suarez DO [address] [place] [address] Referring Physician Neurology 06/29/23 Adelaida Carrion NP [address] [place] [address] Nurse Practitioner Family Medicine 01/27/24 Bong Rosado MA [address] [place] [address] Family Medicine 02/12/24 Juany Leggett PA [address] [place] [address] Physician Fishing Line Winding Machine Operator Neurology 07/26/24 Sewer Pipe Offbearer Relationship Specialty Start Date End Date José Luis Roberts MD [address] [place] [address] PCP - General Family Medicine 02/02/24 Miriam Suarez DO [address] [place] [address] Referring Physician Neurology 06/29/23 Adelaida Carrion NP [address] [place] [address] Nurse Practitioner Family Medicine 01/27/24 Bong Rosado MA [address] [place] [address] Family Medicine 02/12/24 Juany Leggett PA [address] [place] [address] Physician Fishing Line Winding Machine Operator Neurology 07/26/24 Sewer Pipe Offbearer Relationship Specialty Start Date End Date José Luis Roberts MD [address] [place] [address]10[address] PCP - General Family Medicine 02/02/24 Miriam Suarez DO [address] [place] [address] Referring Physician Neurology 06/29/23 Adelaida Carrion NP [address] [place] [address] Nurse Practitioner Family Medicine 01/27/24 Bong Rosado MA [address] [place] [address] Family Medicine 02/12/24 Juany Leggett PA [address] [place] [address] Physician Fishing Line Winding Machine Operator Neurology 07/26/24 Sewer Pipe Offbearer Relationship Specialty Start Date End Date José Luis Roberts MD [address] [place] [address]10[address] PCP - General Family Medicine 02/02/24 Miriam Suarez DO [address] [place] [address] Referring Physician Neurology 06/29/23 Adelaida Carrion NP [address] [place] [address] Nurse Practitioner Family Medicine 01/27/24 Bong Rosado MA [address] [place] [address] Family Medicine 02/12/24 Juany Leggett PA [address] [place] [address] Physician Fishing Line Winding Machine Operator Neurology 07/26/24 Sewer Pipe Offbearer Relationship Specialty Start Date End Date José Luis Roberts MD [address] [place] [address] PCP - General Family Medicine 02/02/24 Miriam Suarez DO [address] [place] [address] Referring Physician Neurology 06/29/23 Adelaida Carrion, BRIANA [address] [place] [address] Nurse Practitioner Family Medicine 01/27/24 Bong Rosado MA [address] [place] [address] Family Medicine 02/12/24 Juany Leggett PA [address] [place], [place] [address] Physician Fishing Line Winding Machine Operator Neurology 07/26/24 Sewer Pipe Offbearer Relationship Specialty Start Date End Date José Luis Roberts MD [address] [place] [address] PCP - General Family Medicine 02/02/24 Miriam Suarez DO [address] [place] [address] Referring Physician Neurology 06/29/23 Adelaida Carrion, BRIANA [address] [place] [address]10[address] Nurse Practitioner Family Medicine 01/27/24 Bong Rosado MA [address] [place] [address] Family Medicine 02/12/24 Juany Leggett PA [address] [place] [address] Physician Fishing Line Winding Machine Operator Neurology 07/26/24 Sewer Pipe Offbearer Relationship Specialty Start Date End Date José Luis Roberts MD [address] [place] [address]10[address] PCP - General Family Medicine 02/02/24 Miriam Suarez DO [address] [place] [address] Referring Physician Neurology 06/29/23 Adelaida Carrion, BRIANA [address] [place] [address] Nurse Practitioner Family Medicine 01/27/24 Bong Rosado, [place] [address] [place] [address] Family Medicine 02/12/24 Juany Leggett PA [address] [place] [address] Physician Fishing Line Winding Machine Operator Neurology 07/26/24 Sewer Pipe Offbearer Relationship Specialty Start Date End Date José Luis Roberts MD [address] [place] [address]10[address] PCP - General Family Medicine 02/02/24 Miriam Suarez DO [address] [place], [place] [address] Referring Physician Neurology 06/29/23 Adelaida Carrion NP [address] [place] [address]10[address] Nurse Practitioner Family Medicine 01/27/24 Bong Rosado MA [address] [place] [address] Family Medicine 02/12/24 Juany Leggett PA [address] [place] [address] Physician Fishing Line Winding Machine Operator Neurology 07/26/24 Sewer Pipe Offbearer Relationship Specialty Start Date End Date José Luis Roberts MD [address] [place] [address] PCP - General Family Medicine 02/02/24 Miriam Suarez DO [address] [place] [address] Referring Physician Neurology 06/29/23 Adelaida Carrion NP [address] [place] [address] Nurse Practitioner Family Medicine 01/27/24 Bong Rosado MA [address] [place] [address] Family Medicine 02/12/24 Juany Leggett PA [address] [place] [address] Physician Fishing Line Winding Machine Operator Neurology 07/26/24 Sewer Pipe Offbearer Relationship Specialty Start Date End Date José Luis Roberts MD [address] [place] [address] PCP - General Family Medicine 02/02/24 Miriam Suarez DO [address] [place] [address] Referring Physician Neurology 06/29/23 Adelaida Carrion NP [address] [place] [address] Nurse Practitioner Family Medicine 01/27/24 Juany Leggett PA [address] [place] [address] Physician Fishing Line Winding Machine Operator Neurology 07/26/24 Sewer Pipe Offbearer Relationship Specialty Start Date End Date José Luis Roberts MD [address] [place] [address] PCP - General Family Medicine 02/02/24 Miriam Suarez DO [address] [place] [address] Referring Physician Neurology 06/29/23 Adelaida Carrion NP [address] [place] [address] Nurse Practitioner Family Medicine 01/27/24 Juany Leggett PA [address] [place] [address] Physician Fishing Line Winding Machine Operator Neurology 07/26/24 Sewer Pipe Offbearer Relationship Specialty Start Date End Date José Luis Roberts MD [address] [place] [address] PCP - General Family Medicine 02/02/24 Miriam Suarez DO [address] [place] [address] Referring Physician Neurology 06/29/23 Adelaida Carrion NP [address] [place] [address] Nurse Practitioner Family Medicine 01/27/24 Juany Leggett PA [address] [place] [address] Physician Fishing Line Winding Machine Operator Neurology 07/26/24 REASON FOR VISIT (unrecogniz [...] BE BASED ON THE PRIMARY CLINICAL RECORDS. [employer] provides no warranty or guarantee of the accuracy or completeness of information in this document.
--- NOTE | 2025-01-18 08:54 | PM.CN ---
Consult Note: HPI Data of Consult Patient: known to practice within the last 3 years Requesting Physician: Bhakti Culp NP Primary Care Provider: Adelaida Carrion NP Consult Narrative Reason for consult: low back pain Narrative: Nasim Ingram a pleasant 64 year old female presents for evaluation of chronic low back pain secondary to lumbar spondylosis, lumbar ddd, and lumbar stenosis with NC. Pt has failed to benefit from > 6 weeks of PT/HEP, heat, ice, tylenol, nsaids. currently utilizing tizanidine 4mg 1-2tabs TID PRN, gabapentin 300mg BID, and duloxetine 60mg BID with benefit denies side effects. recently underwent bilateral L4-5 TFESI with >50% improvement in pain and functional ability ongoing. pain today 2/10 increasing to 3/10 in left posterior hip. cc:: CC: Bhakti Culp NP Review of Systems ROS Musculoskeletal Reports: back pain and joint pain PFSH [facility] Medical History FH: bariatric surgery ?Z84.89 - Family history of other specified conditions (ICD-10) Upper back pain ?M54.9 - Dorsalgia, unspecified (ICD-10) Osteoarthritis ?M19.90 - Unspecified osteoarthritis, unspecified site (ICD-10) Neck pain ?M54.2 - Cervicalgia (ICD-10) Low back pain ?M54.50 - Low back pain, unspecified (ICD-10) Fibromyalgia ?M79.7 - Fibromyalgia (ICD-10) Bipolar 1 disorder ?F31.9 - Bipolar disorder, unspecified (ICD-10) Acid reflux ?K21.9 - Gastro-esophageal reflux disease without esophagitis (ICD-10) Obesity ?E66.9 - Obesity, unspecified (ICD-10) Sleep apnea ?G47.30 - Sleep apnea, unspecified (ICD-10) Heart murmur ?R01.1 - Cardiac murmur, unspecified (ICD-10) High cholesterol ?E78.00 - Pure hypercholesterolemia, unspecified (ICD-10) Hypertension ?I10 - Essential (primary) hypertension (ICD-10) Surgical History S/P dilatation and curettage ?Z98.890 - Other specified postprocedural states (ICD-10) H/O breast biopsy ?Z98.890 - Other specified postprocedural states (ICD-10) S/P ORIF (open reduction internal fixation) fracture ?Z98.890 - Other specified postprocedural states (ICD-10) ?Z87.81 - Personal history of (healed) traumatic fracture (ICD-10) Hx of laparoscopic gastric banding ?Z98.84 - Bariatric surgery status (ICD-10) History of tonsillectomy and adenoidectomy ?Z90.89 - Acquired absence of other organs (ICD-10) History of appendectomy ?Z90.49 - Acquired absence of other specified parts of digestive tract (ICD-10) History of hemilaminectomy ?Z98.890 - Other specified postprocedural states (ICD-10) History of cholecystectomy ?Z90.49 - Acquired absence of other specified parts of digestive tract (ICD-10) Previous section ?Z98.891 - History of uterine scar from previous surgery (ICD-10) Social History Within the past year, how often did you have a drink containing alcohol: never Within the past year, how often did you have six or more drinks on one occasion: never Score interpretation: A score less than 3 is consistent with normal alcohol consumption. 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 Known occupational exposures/hazards: No Highest level of school completed/degree received: Bachelor's degree Do you want help with school or training: No Little interest or pleasure in doing things: not at all Feeling down, depressed, or hopeless: several days Meds Home Medications and Allergies Home Medications ?Medication ?Instructions ?Recorded ?Confirmed ?Type amlodipine 10 mg tablet (Norvasc) 10 mg PO DAILY 09/10/22 01/09/25 History biotin 1 mg capsule 5 mg PO DAILY 09/10/22 01/09/25 History cariprazine 4.5 mg capsule 4.5 mg PO Q24H 09/10/22 01/09/25 History (Vraylar) duloxetine 60 mg capsule,delayed 60 mg PO BID 09/10/22 01/09/25 History release ferrous sulfate 325 mg (65 mg 325 mg PO BID 09/10/22 01/09/25 History iron) tablet (FeroSul) Held on 01/09/25. Instructions: out of magnesium 200 mg tablet 400 mg PO QDAY 09/10/22 01/09/25 History melatonin 12 mg tablet 12 mg PO .HS PRN sleep 09/10/22 01/09/25 History omeprazole 20 mg capsule,delayed 20 mg PO QDAY 09/10/22 01/09/25 History release trazodone 150 mg tablet 150 mg PO .HS 09/10/22 01/09/25 History fluticasone propionate 50 2 spray intranasal DAILY PRN 10/20/23 01/09/25 History mcg/actuation nasal allergy symptoms spray,suspension (Flonase Allergy Relief) spironolactone 50 mg tablet 50 mg PO DAILY 10/20/23 01/09/25 History gabapentin 300 mg capsule 300 mg PO BID 11/03/23 01/09/25 History calcium citrate 200 mg PO QID 11/04/23 01/09/25 History carvedilol 12.5 mg tablet 12.5 mg PO Q12H 11/04/23 01/09/25 History multivitamin 1 tab PO DAILY 11/04/23 01/09/25 History Held on 01/09/25. Instructions: out of fexofenadine 60 mg tablet (Naida 60 mg PO BID 08/08/24 01/09/25 History Allergy) losartan 100 mg tablet 100 mg PO DAILY 10/08/24 01/09/25 History ropinirole 3 mg tablet 3 mg PO .QHS 10/08/24 01/09/25 History tizanidine 4 mg tablet 4 mg PO TID PRN muscle spasticity 10/08/24 01/09/25 History diazepam 10 mg tablet (Valium) 10 mg PO ONCE PRN anxiety 01/09/25 01/09/25 History Allergies Allergy/AdvReac Type Severity Reaction Status Date / Time levetiracetam (From [facility]) Allergy Severe Unknown Verified 10/08/24 02:29 adhesive Allergy Intermediate Blister Verified 10/08/24 02:29 Penicillins Allergy Intermediate Unknown Verified 10/08/24 02:29 tetracycline Allergy Intermediate Unknown Verified 10/08/24 02:29 eszopiclone (From [facility]) Allergy Unknown Verified 10/08/24 02:29 milnacipran (From [facility]) AdvReac Intermediate Agitated Verified 10/08/24 02:29 prochlorperazine (From AdvReac Intermediate Agitated Verified 10/08/24 02:29 Compazine) Exam Constitutional Documenting provider has reviewed patient's vital signs: yes Common normals: no apparent distress, oriented x3, healthy appearing, alert and well nourished General appearance: cooperative HENMT Common normals: normocephalic, hearing grossly normal bilaterally and moist oral mucous membranes Head and scalp: normocephalic Eye Common normals: PERRL Pupil: PERRL Neck & C-Spine Common normals: full ROM General: normal visual inspection Chest Common normals: inspection of chest normal Respiratory Common normals: normal respiratory effort, no retractions and no use of accessory muscles Back & Pelvis Lumbar spine/lower back: straight leg raise negative bilaterally; ROM not limited, no pain with ROM and no lumbar spinal tenderness Sacroiliac joints: SI joint(s) abnormal Other: mild left sij positive autumn(patricks), gaenslens, thigh thrust, compression test strength 5/5 in BLE sensation intact BLE Neuro Common normals: oriented x3 Sensorium/orientation: alert Psych Common normals: mental status grossly normal, thought process normal, cooperative, affect normal, speech normal and activity/motor behavior normal Speech: normal speech Thought process: normal thought process Results Additional Findings Additional findings: If on a controlled substance or opioids, I have checked an [place] report on this patient and there are no aberrancies noted in the prescribing history.??If on a controlled substance or opioid a drug screen was completed and reviewed within the last year, and if there has not been a drug screen completed we ordered one today to monitor higher risk, state monitored pain medication use. As part of providing excellent, safe, comprehensive care, the following was completed at our patient's visit: 1. A medication reconciliation and review to ensure accurate knowledge of current/active medications, including asking our patients to inform us about any [id number] medications or herbal remedies/nutritional supplements/alternative remedies. 2. A review to specifically ensure our patients have had annual screening for screening for depression, screening for tobacco use, and screening for unhealthy alcohol use. For concerning screenings had a discussion with the patient, provided patient education, and recommended follow-up with primary care provider when appropriate. If patient noted with a risk of falling, they received education on strength, gait, and balance training to prevent future risk of falling. Portions of this note may have been carried over from the previous visit and updated as appropriate. Please note this office utilizes paper charting in addition to the electronic medical record. A list of current medications, vitals, and PMH is available there as the clinical staff outside of myself do not have access to [employer] charting during the clinic day operations. As part of providing quality comprehensive care the current medications, vitals, and PMH were reviewed in the paper chart. Assessment and Plan Assessment and Plan (1) Lumbar stenosis with neurogenic claudication: Assessment and Plan: 01/09/25 bilateral L4-5 TFESI >50% improvement ongoing (2) Sacroiliitis: Assessment and Plan: noting >50% improvement ongoing from prior left SIJ injection completed 09/19/24, can repeat as needed (3) Lumbar spondylosis: (4) Myofascial pain: Plan The patient has had over 3 months of moderate to severe back and SIJ pain with functional impairment and inadequate response to conservative care including NSAIDS (unless there are contraindication such as concurrent blood thinners), multiple oral or topical pain medications, and home exercise program/physical therapy.? Patient has completed >6 weeks of guided home exercise program and/or formal physical therapy program without relief of their symptoms.? The Oswestry Disability Index was completed, and the patient scored a 34%.? Pain well controlled at this time, could consider repeat left SIJ injection should pain worsen continue HEP as tolerated no medication changes f/u 3 months, sooner if needed
== END 2025-01-18 08:40 | disposition home or self-care (01) ==
PROVIDERS: PCP Nurse Practitioner; Visit Provider Nurse Practitioner
DX: M48.062 Spinal stenosis, lumbar region with neurogenic claudication (principal); M46.1 Sacroiliitis, not elsewhere classified; M47.816 Spondylosis without myelopathy or radiculopathy, lumbar region; M79.18 Myalgia, other site
CPT/HCPCS: G0463